=== PATIENT | female | born 1990 | race Caucasian/White ===

== ENCOUNTER 2022-10-17 21:25 | Emergency (ER) | payer SELFPAY ==
--- OUTSIDE RECORDS SUMMARY | 2022-10-17 21:39 | XMS REPORT | Continuity of Care Document ---
:1990 Author Organization [facility] t Address [address] [place] [address] Care Team Providers Name Role Phone JAMAR CASAS Primary Care Physician Unavailable DOUG HAMMER Attending Clinician Unavailable Doug Gamble Attending Clinician PAM COLE Attending Clinician Unavailable Anahi Hoang MD Attending Clinician GC_SWHANBWH_Diggs_R Attending Clinician Unavailable DA CHAPIN Attending Clinician Unavailable JENNY FLETCHER Attending Clinician Unavailable BRIE GALVAN Attending Clinician Unavailable Kaycee Longo Attending Clinician [phone] LEYLA GALVAN Attending Clinician Unavailable Thania Barrera Attending Clinician THANIA BARRERA Attending Clinician Unavailable Sukhwinder Thomas Attending Clinician SUKHWINDER THOMAS Attending Clinician Unavailable ROSA M Attending Clinician Unavailable JERZY BRADFORD Attending Clinician Unavailable JANENE MASSEY Attending Clinician Unavailable HIEU MILLER Attending Clinician Unavailable BRIE KEN Attending Clinician Unavailable ESTHER MIRZA Attending Clinician Unavailable DIRK MARIE Attending Clinician Unavailable KATHRYN ZELAYA Attending Clinician Unavailable PRESLEY PERAZA Attending Clinician Unavailable Lazaro Luevano MD Attending Clinician ANSHU GUZMÁN Attending Clinician Unavailable Gabriella Lakhani MD Attending Clinician CASH MOULTON Attending Clinician Unavailable MARA WOLF Attending Clinician Unavailable Domingo Miller Attending Clinician DOMINGO MILLER Attending Clinician Unavailable JERZY BRADFORD Attending Clinician Unavailable MICHELLE MARINO Attending Clinician Unavailable GÓMEZ WHITE Attending Clinician Unavailable YING GALVAN Attending Clinician Unavailable TATO CONNOLLY Attending Clinician Unavailable ANDREW, ABNER Attending Clinician Unavailable GÓMEZ WHITE Attending Clinician Unavailable ALVIN TANG Attending Clinician Unavailable DIPAK GUZMAN Attending Clinician Unavailable DAVE THOMAS Attending Clinician Unavailable ANDREW, ABNER Attending Clinician Unavailable WAQAR FRANCO Attending Clinician Unavailable NERY SETH Attending Clinician Unavailable DIPAK GUZMAN Attending Clinician Unavailable COURTNEY ENGEL Attending Clinician Unavailable VICTORIA MENDOZA Attending Clinician Unavailable González Flannery Attending Clinician N[place] Mello Attending Clinician [phone] Tommy Del Toro Attending Clinician Sam Mcclendon Attending Clinician DOUG HAMMER Admitting Clinician Unavailable _SWHANBWH_Chloé_R Admitting Clinician Unavailable ROSA M Admitting Clinician Unavailable González Flannery Admitting Clinician Tommy Del Toro Admitting Clinician Payers Payer Name Policy Type Policy Number Effective Date Expiration Date Davie BRADLEY [id number] 2020 2021 [employer] 00:00:00 00:00:00 EXCEPT [facility] [id number] OF [place] [employer] [id number] 2022 OUT OF NETWORK 00:00:00 TP68 [facility] [id number] 2021 PROGRAM 00:00:00 [place] [id number] 2021 [facility] 00:00:00 PROGRAM (MEDICAID) [facility] [id number] 2020 00:00:00 Problems Condition Condition Condition Status Onset Resolution Last Treating Co mments Source Name Details Category Date Date Treatment Clinician Date FACE/RT FACE/RT Diagnosis Active 2022-03-19 Memoria SIDE SIDE 03-18 13:51:00 l NUMBNESS NUMBNESS 00:00: Garrett lynch Active 00 03/18/2022 [facility] FEVER, FEVER, Diagnosis Active 2022-03-13 Me moria BODY PAIN BODY PAIN 03-13 21:46:00 l Active 00:00: Dav 03/13/[address] [place] [address] Hypertensi Hypertensi Problem Active P rivia ve ve 3-29 Medical disorder Disorder 00:00: 00 SENT BY SENT BY Diagnosis Active 2021-03-18 Erik SAINI Active 01-20 15:44:00 l 01/20/2021 00:00: Garrett VILLA [address] INTRACTABL Diagnosis Active 2015-10-17 Memoria E VOMITING INTRACTABL 09-02 16:18:00 l S/P E VOMITING 00:00: Garrett lynch GASTRIC S/P 00 SLEEVE GASTRIC SLEEVE Active 09/02/2015 [facility] VOMITTING VOMITTING Diagnosis Active 2015-09-17 Memoria Active 09-02 18:24:00 l 09/02/2015 00:00: Garrett VILLA [address] ABDOMINAL ABDOMINAL Diagnosis Active 2014-082015-08-26 Memoria PAIN PAIN 10-27 11:29:00 l Active 00:00: Dav 08/26/2015 00 [facility] UNK UNK Diagnosis Active 2014-082015-08-06 Mem oria Active 10-06 12:24:00 l 08/05/2015 00:00: Garrett VILLA [address] [place] [address] E66.01 E66.01 Diagnosis Active 2014-082015-08-16 Wy moria Active 2-07 14:56:00 l 08/05/2015 00:00: Garrett lynch 00 [facility] MORBID MORBID Diagnosis Active 2014-082015-06-24 Wy moria OBESITY OBESITY 0-23 15:17:00 l Active 00:00: [place] 06/21/2015 00 [facility] K21.9; K21.9; Diagnosis Active 2014-082015-06-24 Wy moria GASTRO-ESO GASTRO-ESO 0- 09:25:00 l PHAGEAL PHAGEAL 00:00: Dav REFLUX REFLUX 00 DISEASE DISEASE Active 06/19/2015 [facility] K21.0 K21.0 Diagnosis Active 2015-06-10 Mem oria Active 05-07 06:23:00 l 05/07/2015 00:00: Garrett lynch 00 [facility] Bipolar Bipolar Problem Resolve 2015-09-22 M emoria (qualifier (qualifier d 02:57:40 l value) value) Dav Resolved Problem 09/22/2015 [facility] Obesity Obesity Problem Resolve 2015-09-22 Memoria (disorder) (disorder) d 02:57:40 l Resolved [place] Problem 09/22/2015 [facility] Acid Acid Problem Active 2015-09-22 Memor ia reflux reflux 02:57:40 l (finding) (finding) Herm kailash Active Problem 09/22/2015 [facility] Pain in Pain in Problem Active 2022-03-21 Wy mori lower limb lower limb 21:09:41 l (finding) (finding) Herm kailash Active Problem 03/21/2022 [facility] GASTRO-ESO GASTRO-ES Diagnosis Active 2015-06-10 Memoria PHAGEAL OPHAGEAL 06:23:00 l REFLUX REFLUX Dav DISEASE DISEASE WITH ES WITH ES Active [facility] MORBID MORBID Diagnosis Active 2015-08-16 Wy moria (SEVERE) (SEVERE) 14:56:00 l OBESITY OBESITY Dav DUE TO DUE TO EXCESS CA EXCESS CA Active [facility] VOMITING, VOMITING, Diagnosis Active 2015-10-17 Memoria UNSPECIFIE UNSPECIFIE 16:18:00 l D D Active Dav [facility] History of Past Illness Condition Condition Condition Status Onset Resolution Last Treating Co mments Source Name Details Category Date Date Treatment Clinician Date 2018-nCoV 2018-nCoV Problem 2022-03-212022-03-21 Memoria acute acute 03-19 21:09:41 21:09:41 l respirator respirator 06:21: He rmann y disease y disease 00 03/19/2022 [facility] Paresthesi Paresthes Problem 2022-03-21 2022-03-21 Memoria a of skin ia of skin 03-19 21:09:41 21:09:41 l 03/19/2022 06:21: Garrett n 03/21/2022 00 [facility] Hypokalemi Problem 2022-03-21 2022-03-21 Memoria a Hypokalemi 03-19 21:09:41 21:09:41 l a 06:21: Dav 03/19/2022 00 03/21/2022 [facility] Discharge Problem 2014-082015-08-29 2015-08-29 Memoria Diagnosis: Discharge 10-27 03:22:03 03:22:03 l Abdominal Diagnosis: 06:00: Her blanca pain Abdominal 00 pain 08/26/2015 08/29/2015 [facility] Allergies, Adverse Reactions, Alerts Allergy Allergy Status Severity Reaction(s) Onset Inactive Treating Comm ents Source Name Type Date Date Clinician LATEX DRUG Active Unknown-Cmnt 2021-08 Univ ers INGREDI 10-27 ity of 00:00: [place] [facility] BENZONAT DRUG Active Swelling 2021-08 Univer s ATE INGREDI 10-27 ity of 00:00: [place] 00 [facility] Latex Propensi Active Unknown - 2021-08 Unive rs ty to See comments 10-27 ity of adverse 00:00: [place] reaction 00 Medical s Branch Benzonat Propensi Active Swelling 2021-08 Univ ers ate ty to 10-27 ity of adverse 00:00: [place] reaction 00 Medical s Branch Latex Propensi Active Rash Methodi ty to 01-24 st adverse 00:00: Hospita reaction 00 l s to drug Latex Allergy Active [facility] substanc [facility] Latex Latex Active Memoria oj Candelariasalon Active Memori hesham Demarco Social History Social Habit Start Date Stop Date Quantity Comments Source Exposure to 2022-08-16 2022-08-26 Not sure University of SARS-CoV-2 00:00:00 13:07:00 [place] [facility] (event[facility] Alcohol intake 2022-06-11 2022-06-11 Current [facility] 00:00:00 00:00:00 non-drinker of alcohol (finding) Tobacco use and 2018-05-14 2018-05-14 Smokeless tobacco [facility] exposure 00:00:00 00:00:00 non-user Social History 2015-08-15 2015-08-15 [facility] 18:23:25 18:23:25 Sex Ass[birth year] At [birth year] [facility] 00:00:00 00:00:00 Smoking Status Start Date Stop Date Source Tobacco smoking consumption [facility] Never smoked tobacco [facility] ospital Medications Ordered Filled Start Stop Current Ordering Indication Dosage Frequency Signature Comments Components Source Medication Medication Date Date Medication? Clinician (SIG) Name Name albuterol 2021-08 Yes [id number] 2{puff} Inhale 2 Univers 90 2-28 Puffs ity of mcg/actuati 00:00: every 4 Imer as on inhaler 00 (four) Medical hours as Branch needed for Wheezing or Shortness of Breath. cephalexin 2021-08- No 500mg [id number] Take 1 Methodi (Keflex) 06-17 [id number] capsule s t 500 MG 00:00: 04:59 3D (500 mg Hospita capsule 00 :00 total) by l mouth 3 (three) times a day for 5 days. ondansetron 2021-08- No 4mg Q8H Take 1 Met hodi ODT 06-17 tablet (4 st (ZOFRAN-ODT 00:00: 04:59 mg total) Hospita ) 4 MG 00 :00 by mouth l disintegrat every 8 ing tablet (eight) hours as needed for nausea or vomiting for up to 5 days. potassium No /= 14 Memoria chloride 7-21 Cameroonian, l 05:55: may 00 dissolve each 20 mEq tablet in 4 oz of water. Allow about 2 minutes for the tablets to disintegra te. Stir before giving to prepare slurry and administer . Please exclude patient's with feeding tube less than 14 Cameroonian (Dobhoff, J-tube, etc) and pediatric and patients. potassium No /= 14 Memoria chloride 7-21 [place], l 05:55: may [place] 00 dissolve each 20 mEq tablet in 4 oz of water. Allow about 2 minutes for the tablets to disintegra te. Stir before giving to prepare slurry and administer . Please exclude patient's with feeding tube less than 14 [place]onian (Dobhoff, J-tube, etc) and pediatric and patients. Tessalon Yes 200 mg = 1 Mem oria 200 mg oral 7-16 cap, PO, l capsule 03:28: TID, X 7 Garrett n 00 day, # 21 cap, 0 Refill(s) Tessalon 0 Yes 200 mg = 1 Mem oria 200 mg oral 7-16 cap, PO, l capsule 03:28: TID, X 7 Garrett n 00 day, # 21 cap, 0 Refill(s) ibuprofen Yes 600 mg = 1 Me moria 600 mg oral 7-16 tab, PO, l tablet 03:27: Q6H, PRN Dav 00 Pain or Fever, Take with food, X 10 day, # 40 tab, 0 Refill(s) ibuprofen Yes 600 mg = 1 Me moria 600 mg oral 7-16 tab, PO, l tablet 03:27: Q6H, PRN Dav 00 Pain or Fever, Take with food, X 10 day, # 40 tab, 0 Refill(s) Tylenol No Notes: Max Henok vane 7-16 acetaminop l 00:44: hen 4000 Dav 00 mg/day (4 gm/day). (Same as: Tylenol Extra Strength) Tylenol No Notes: Max Henok vane 7-16 acetaminop l 00:44: hen 4000 Dav 00 mg/day (4 gm/day). (Same as: Tylenol Extra Strength) furosemide Yes 40mg Q.5D Take 40 mg M ethodi (LASIX) 40 5-[address] mg tablet 10:40: (two) Hospita 34 times a l day. insulin Yes Q.[id number] Inject Me thodi ASPART -[id number] (NovoLOG) 10:40: 3D skin 3 Hospit a 100 unit/mL 33 (three) l injection times a day before meals. metFORMIN Yes 850mg Q.5D Take 850 Met hodi (GLUCOPHAGE 5-[address] ) 850 mg 10:40: mouth 2 Hospit a tablet 33 (two) l times a day with meals. insulin Yes QD Inject Methodi GLARGINE 5-[address] (LANTUS) 10:40: skin Hospita 100 unit/mL 33 nightly. l injection (vial) buPROPion 2019-0 Yes 300mg QD Take 300 Met hodi XL 5-[address] (WELLBUTRIN 19:57: mouth Hospi ta XL) 300 MG 02 every l 24 hr morning. tablet busPIRone 2019-0 Yes 10mg Q.5D Take 10 mg Me thodi (BUSPAR) 10 5-[address] MG tablet 19:57: (two) Hospita 02 times a l day. amitriptyli 2019-0 Yes 100mg QD Take 100 M ethodi ne (ELAVIL) 5-[address] 100 MG 19:57: mouth Hospita tablet 02 nightly. l ibuprofen 2019-0 Yes 600mg Q8H Take 1 Metho di (ADVIL) 600 5-[address] MG tablet 00:00: (600 mg Hospi ta 00 total) by l mouth every 8 (eight) hours as needed (for pain and swelling) for up to 20 doses. Reglan No Notes: Memoria 1-22 (Same as: l 00:00: Reglan) Reglan No Notes: Memoria 1-22 (Same as: l 00:00: Reglan) Sodium No 1,000 mL, Memori a Chloride 09-19 Rate: 25 l 0.154 18:06: ml/hr, [place] MEQ/ML 00 Infuse Injectable over: 40 Solution hr, Route: IV, Dosing Weight 160.909 kg, Total Volume: 1,000, Start date: 09/19/15 12:06:00, Duration: 30 day, Stop date: 10/19/15 12:05:00 Sodium 2015- No 1,000 mL, Memori a Chloride 09-19 Rate: 25 l 0.154 18:06: ml/hr, Dav MEQ/ML 00 Infuse Injectable over: 40 Solution hr, Route: IV, Dosing Weight 160.909 kg, Total Volume: 1,000, Start date: 09/19/15 12:06:00, Duration: 30 day, Stop date: 10/19/15 12:05:00 thiamine 2016-0 Yes 100 mg = 1 Mem oria 100 mg oral 1-21 tab, PO, l tablet 17:08: Daily, X 14 day, # 14 tab, 0 Refill(s) pantoprazol 2016-0 Yes 40 mg = 1 M emoria e 40 mg 1-21 tab, PO, l oral 17:08: Before Dav enteric 00 Dinner, # coated 30 tab, 0 tablet Refill(s) Promethazin 2016-0 Yes 12.5 mg = M emoria e 1-21 1 tab, PO, l Hydrochlori 17:08: Q6H, PRN He rmann de 12.5 MG 00 Nausea & Oral Tablet Vomiting, [Phenergan] X 7 day, # 28 tab, 0 Refill(s) Folic Acid 2016-0 Yes 1 mg = 1 Mem oria 1 MG Oral 1-21 tab, PO, l Tablet 17:08: Daily, # [place] 00 30 tab, 0 Refill(s) thiamine 2016-0 Yes 100 mg = 1 Mem oria 100 mg oral 1-21 tab, PO, l tablet 17:08: Daily, X 14 day, # 14 tab, 0 Refill(s) pantoprazol 2016-0 Yes 40 mg = 1 M emoria e 40 mg 1-21 tab, PO, l oral 17:08: Before Dav enteric 00 Dinner, # coated 30 tab, 0 tablet Refill(s) Promethazin 2016-0 Yes 12.5 mg = M emoria e 1-21 1 tab, PO, l Hydrochlori 17:08: Q6H, PRN He rmann de 12.5 MG 00 Nausea & Oral Tablet Vomiting, [Phenergan] X 7 day, # 28 tab, 0 Refill(s) Folic Acid 2016-0 Yes 1 mg = 1 Mem oria 1 MG Oral 1-21 tab, PO, l Tablet 17:08: Daily, # [place] 00 30 tab, 0 Refill(s) Melatonin 2016-0 No 1 mg, Memoria -21 Route: PO, l 03:00: Drug form: [place] 00 TAB, Bedtime, Dosing Weight 160.909, kg, Start date: 09/18/15 21:00:00, Duration: 30 day, Stop date: 10/17/15 21:00:00 Lamictal 2015-0 No Notes: Memoria 1-21 (Same l 03:00: as:LaMICta [place] 00 l) Strattera 0 No 80 mg, Memori a 1- Route: PO, l 03:00: Drug form: Dav 00 CAP, Bedtime, Dosing Weight 160.909, kg, Start date: 09/18/15 21:00:00, Duration: 30 day, Stop date: 10/17/15 21:00:00 Melatonin No 1 mg, Memoria 09-19 Route: PO, l 03:00: Drug form: Dav 00 TAB, Bedtime, Dosing Weight 160.909, kg, Start date: 09/18/15 21:00:00, Duration: 30 day, Stop date: 10/17/15 21:00:00 Lamictal 2015-0 No Notes: Memoria - (Same l 03:00: as:LaMICta [place] 00 l) Strattera 0 No 80 mg, Memori a 1- Route: PO, l 03:00: Drug form: Dav 00 CAP, Bedtime, Dosing Weight 160.909, kg, Start date: 09/18/15 21:00:00, Duration: 30 day, Stop date: 10/17/15 21:00:00 Protonix 2015-0 No Notes: Memoria 1-20 Tablet l 22:30: should not [place] 00 be chewed or crushed. (Same as: Protonix) Protonix 2015- No Notes: Memoria 1-20 Tablet l 22:30: should not Dav 00 be chewed or crushed. (Same as: Protonix) Thiamine No Notes: Memoria 1-20 (Same As: l 20:00: Vitamin [place] 00 B1) Thiamine No Notes: Memoria 1-20 (Same As: l 20:00: Vitamin [place] 00 B1) Folic Acid No Notes: Memor ia 1-20 (Same as: l 19:00: Folvite) Folic Acid No Notes: Memor ia 1-20 (Same as: l 19:00: Folvite) normal No 1,000 mL, Memori a saline 0.9% 1-20 Rate: 125 l IV 1,000 mL 18:38: ml/hr, Herm kailash 00 Infuse over: 8 hr, Route: IV, Dosing Weight 160.909 kg, Total Volume: 1,000, Start date: 09/18/15 12:38:00, Duration: 30 day, Stop date: 10/18/15 12:37:00 normal No 1,000 mL, Memori a saline 0.9% 1-20 Rate: 125 l IV 1,000 mL 18:38: ml/hr, Herm kailash Infuse over: 8 hr, Route: IV, Dosing Weight 160.909 kg, Total Volume: 1,000, Start date: 09/18/15 12:38:00, Duration: 30 day, Stop date: 10/18/15 12:37:00 Prinivil No Notes: Memoria 1-20 (Same as: l 15:00: Prinivil, Zestril) Lovenox No Notes: Memoria 1-20 (Same as: l 15:00: Lovenox) hydrochloro No Notes: Henok vane thiazide 25 1-20 (Same as: l mg oral 15:00: Hydrodiuri Herm kailash tablet 00 l) With food. Prilosec No 40 mg, Memoria 1-20 Route: PO, l 15:00: Drug form: DRC, Daily, Dosing Weight 160.909, kg, Start date: 09/18/15 9:00:00, Duration: 30 day, Stop date: 10/17/15 9:00:00 multivitami No 2 tab, Henok vane n 1-20 Route: l 15:00: CHEW, Dosing Weight 160.909, kg, BID, Start date: 09/18/15 9:00:00, Duration: 30 day, Stop date: 10/17/15 17:00:00 Hydrochloro No 1 tab, Henok vane thiazide 25 1-20 Route: PO, l MG / 15:00: Drug Form: [place] Lisinopril 00 TAB, 20 MG Oral Dosing Tablet Weight 160.909, kg, Daily, Start date: 09/18/15 9:00:00, Duration: 30 day, Stop date: 10/17/15 9:00:00 Prinivil No Notes: Memoria 1-20 (Same as: l 15:00: Prinivil, Dav Zestril) Lovenox No Notes: Memoria 1-20 (Same as: l 15:00: Lovenox) [place] 00 hydrochloro No Notes: Henok vane thiazide 25 1-20 (Same as: l mg oral 15:00: Hydrodiuri Herm kailash tablet 00 l) With food. Prilosec No 40 mg, Memoria 1-20 Route: PO, l 15:00: Drug form: Dav 00 DRC, Daily, Dosing Weight 160.909, kg, Start date: 09/18/15 9:00:00, Duration: 30 day, Stop date: 10/17/15 9:00:00 multivitami No 2 tab, Henok vane n 1-20 Route: l 15:00: CHEW, [place] 00 Dosing Weight 160.909, kg, BID, Start date: 09/18/15 9:00:00, Duration: 30 day, Stop date: 10/17/15 17:00:00 Hydrochloro No 1 tab, Henok vane thiazide 25 1-20 Route: PO, l MG / 15:00: Drug Form: Dav Lisinopril 00 TAB, 20 MG Oral Dosing Tablet Weight 160.909, kg, Daily, Start date: 09/18/15 9:00:00, Duration: 30 day, Stop date: 10/17/15 9:00:00 *Remind pt No *Remind pt Corey victoria to bring 1-20 to bring l home med 06:00: home med Brigida nn melatonin 1 00 melatonin mg and 1 mg and multivitami multivitam n in, Reminder, Drug form: MISC, Route: MISC, QSHIFT, 09/18/15 0:00:00, Duration: 30 day, Stop date: 10/17/15 16:00:00 *Remind pt 2015- No *Remind pt M emoria to bring 1-20 to bring l home med 06:00: home med Brigida nn melatonin 1 00 melatonin mg and 1 mg and multivitami multivitam n in, Reminder, Drug form: MISC, Route: MISC, QSHIFT, 09/18/15 0:00:00, Duration: 30 day, Stop date: 10/17/15 16:00:00 Bupropion No Notes: Memori a 1-20 (Same as: l 05:00: Wellbutrin [place] 00 XL) "Do Not Crush" Bupropion No Notes: Memori a 1-20 (Same as: l 05:00: Wellbutrin Dav 00 XL) "Do Not Crush" Reglan No Notes: Memoria 1-20 (Same as: l 04:26: Reglan) Dav Acetaminoph No Notes: Do M emoria en 1-20 not exceed l 04:26: 4 gm/day. [place] 00 (Same as: Tylenol) Ondansetron No Notes: Henok vane 1-20 (Same as: l 04:26: Zofran) [place] 00 MEDICATION WASTE Product Size: 4 mg Product Wasted: ___ mg Morphine No Notes: Memoria 1-20 (Same l 04:26: as:MORPhin [place] 00 e Sulfate) Phenergan No Notes: Do Mem oria 1-20 not give l 04:26: IV push. Dav 00 (Same as: Phenergan) Reglan No Notes: Memoria 1-20 (Same as: l 04:26: Reglan) [place] 00 Acetaminoph No Notes: Do M emoria en 1-20 not exceed l 04:26: 4 gm/day. [place] 00 (Same as: Tylenol) Ondansetron No Notes: Henok vane 1-20 (Same as: l 04:26: Zofran) [place] 00 MEDICATION WASTE Product Size: 4 mg Product Wasted: ___ mg Morphine No Notes: Memoria 1-20 (Same l 04:26: as:MORPhin [place] 00 e Sulfate) Phenergan No Notes: Do Mem oria 1-20 not give l 04:26: IV push. Dav 00 (Same as: Phenergan) Zofran ODT No Notes: Memor ia 1-20 (Same as: l 04:25: Zofran [place] 00 ODT) Zofran ODT No Notes: Memor ia 1-20 (Same as: l 04:25: Zofran Dav 00 ODT) Metoclopram No Notes: Henok vane john 10 MG 1-20 (Same as: l Oral Tablet 04:24: Reglan) Her blanca [Reglan] 00 Take 30 min before meals Metoclopram No Notes: Henok vane john 10 MG 1-20 (Same as: l Oral Tablet 04:24: Reglan) Her blanca [Reglan] 00 Take 30 min before meals 200 ACTUAT No Notes: Memor ia Albuterol 1-20 Same as: l 0.09 04:23: Ventolin Dav MG/ACTUAT 00 HFA Metered Dose Inhaler [Proventil] 200 ACTUAT No Notes: Memor ia Albuterol 1-20 Same as: l 0.09 04:23: Ventolin [place] MG/ACTUAT 00 HFA Metered Dose Inhaler [Proventil] Melatonin No Melatoni Memoria 1mg -Pt's 1-20 n 1mg l own 04:19: -Pt's own Dav medication* 00 medication * , 1 mg, 1 tab, Drug form: MISC, Route: PO, ONCE, 09/17/15 22:19:00, Stop date: 09/17/15 22:19:00 Melatonin No Melatoni Memoria 1mg -Pt's 1-20 n 1mg l own 04:19: -Pt's own Dav medication* 00 medication * , 1 mg, 1 tab, Drug form: MISC, Route: PO, ONCE, 09/17/15 22:19:00, Stop date: 09/17/15 22:19:00 Strattera 2015-0 No 80 mg, Memori a 1-20 Route: PO, l 04:12: ONCE, Dosing Weight 160.909, kg, Start date: 09/17/15 22:12:00, Stop date: 09/17/15 22:12:00 Strattera 2015-0 No 80 mg, Memori a 1-20 Route: PO, l 04:12: ONCE, Dosing Weight 160.909, kg, Start date: 09/17/15 22:12:00, Stop date: 09/17/15 22:12:00 Melatonin 2016-0 No 1 mg, Memoria 1-20 Route: PO, l 04:11: ONCE, Dosing Weight 160.909, kg, Start date: 09/17/15 22:11:00, Stop date: 09/17/15 22:11:00 lamotrigine No Notes: Henok vnae 150 MG Oral 1-20 (Same l Tablet 04:11: as:LaMICta Brigida nn l) Melatonin No 1 mg, Memoria 1-20 Route: PO, l 04:11: ONCE, Dosing Weight 160.909, kg, Start date: 09/17/15 22:11:00, Stop date: 09/17/15 22:11:00 lamotrigine 2015-0 No Notes: Henok vane 150 MG Oral 1-20 (Same l Tablet 04:11: as:LaMICta Brigida nn 00 l) 200 ACTUAT Yes 2 puff, Henok vane Albuterol 1-20 INHALATION l 0.09 04:10: , QID, PRN Dav MG/ACTUAT 00 as needed Metered for Dose wheezing, Inhaler 0 [Proventil] Refill(s) 200 ACTUAT Yes 2 puff, Henok vane Albuterol 1-20 INHALATION l 0.09 04:10: , QID, PRN [place] MG/ACTUAT 00 as needed Metered for Dose wheezing, Inhaler 0 [Proventil] Refill(s) multivitami Yes 2 tab, Henok vane n 1-20 CHEW, BID, l 04:08: 0 Dav 00 Refill(s) multivitami 0 Yes 2 tab, Henok vane n 1-20 CHEW, BID, l 04:08: 0 [place] 00 Refill(s) Ondansetron Yes 8 mg = 1 Me moria 8 MG 1-20 tab, PO, l Disintegrat 04:07: Q8H, PRN He rmann ing Tablet 00 as needed [Zofran] for nausea/vom iting, 0 Refill(s) Metoclopram Yes 10 mg = 1 M emoria john 10 MG 1-20 tab, PO, l Oral Tablet 04:07: Q6H, PRN He rmann [Reglan] 00 Nausea & Vomiting, 0 Refill(s) Ondansetron Yes 8 mg = 1 Me moria 8 MG 1-20 tab, PO, l Disintegrat 04:07: Q8H, PRN He rmann ing Tablet 00 as needed [Zofran] for nausea/vom iting, 0 Refill(s) Metoclopram Yes 10 mg = 1 M emoria john 10 MG 1-20 tab, PO, l Oral Tablet 04:07: Q6H, PRN He rmann [Reglan] 00 Nausea & Vomiting, 0 Refill(s) buPROPion Yes 300 mg = 1 Me moria 300 mg/24 1-20 tab, PO, l hours oral 04:05: Q24H, 0 Herm kailash extended 00 Refill(s) release tablet buPROPion Yes 300 mg = 1 Me moria 300 mg/24 1-20 tab, PO, l hours oral 04:05: Q24H, 0 Herm kailash extended 00 Refill(s) release tablet Reglan No Notes: Memoria 1-20 (Same as: l 03:49: Reglan) Dav 00 Reglan No Notes: Memoria 1-20 (Same as: l 03:49: Reglan) Dav 00 Ondansetron No Notes: Henok vane 4 MG 1-20 (Same as: l Disintegrat 00:07: Zofran Herm kailash ing Tablet 00 ODT) Saline No Notes: Memoria Flush 0.9% 1-20 (Same as: l 00:07: BD Dav 00 Posiflush) Ondansetron No Notes: Henok vane 4 MG 1-20 (Same as: l Disintegrat 00:07: Zofran Herm kailash ing Tablet 00 ODT) Saline No Notes: Memoria Flush 0.9% 1-20 (Same as: l 00:07: BD [place] 00 Posiflush) Ondansetron 2014-08 No 4 mg = 1 Me moria 4 MG 2-28 tab, PO, l Disintegrat 22:06: TID, Garrett n ing Tablet 00 Dissolve [Zofran] tab under tongue, X 1 day, # 12 tab, 0 Refill(s) Acetaminoph 2014-08 Yes 11.25 mL, M emoria en 20 MG/ML 2-28 PO, Q6H, # l / 22:06: 60 mL, 0 [place] Hydrocodone 00 Refill(s) Bitartrate 0.667 MG/ML Oral Solution Ondansetron 2014-08 No 4 mg = 1 Me moria 4 MG 2-28 tab, PO, l Disintegrat 22:06: TID, Garrett n ing Tablet 00 Dissolve [Zofran] tab under tongue, X 1 day, # 12 tab, 0 Refill(s) Acetaminoph 2014-08 Yes 11.25 mL, M emoria en 20 MG/ML 2-28 PO, Q6H, # l / 22:06: 60 mL, 0 [place] Hydrocodone 00 Refill(s) Bitartrate 0.667 MG/ML Oral Solution ketOROLAC 2014-08 No 15 mg, Memori a 15 mg/mL 2-28 Route: l injectable 20:44: IVP, Drug He r[place] solution 00 form: INJ, ONCE, Dosing Weight 162.273, kg, Priority: STAT, Start date: 08/26/15 14:44:00, Stop date: 08/26/15 14:44:00 ketOROLAC 2014-08 No 15 mg, Memori a 15 mg/mL 2-28 Route: l injectable 20:44: IVP, Drug He rmann solution 00 form: INJ, ONCE, Dosing Weight 162.273, kg, Priority: STAT, Start date: 08/26/15 14:44:00, Stop date: 08/26/15 14:44:00 Morphine 2014-08 No 6 mg, Memoria 2-28 Route: l 18:38: IVP, Drug [place] 00 form: INJ, ONCE, Dosing Weight 162.273, kg, Priority: STAT, Start date: 08/26/15 12:38:00, Stop date: 08/26/15 12:38:00 Morphine 2014- No 6 mg, Memoria 2-28 Route: l 18:38: IVP, Drug Dav 00 form: INJ, ONCE, Dosing Weight 162.273, kg, Priority: STAT, Start date: 08/26/15 12:38:00, Stop date: 08/26/15 12:38:00 Zofran 2014-08 No 4 mg, Memoria 2-28 Route: l 18:37: IVP, Drug Dav 00 form: INJ, ONCE, Dosing Weight 162.273, kg, Priority: STAT, Start date: 08/26/15 12:37:00, Stop date: 08/26/15 12:37:00 Zofran 2014-08 No 4 mg, Memoria 2-28 Route: l 18:37: IVP, Drug Dav 00 form: INJ, ONCE, Dosing Weight 162.273, kg, Priority: STAT, Start date: 08/26/15 12:37:00, Stop date: 08/26/15 12:37:00 Sodium 2014- No 1,000 mL, Memori a Chloride 2-28 1,000 l 0.154 16:47: ml/hr, [place] MEQ/ML 00 Infuse Injectable Over: 1 Solution Hour, Route: IV, ONCE, Priority: STAT, Dosing Weight 162.273 kg, Start date: 08/26/15 10:47:00, Duration: 1 doses or times, Stop date: 08/26/15 10:47:00 Sodium 2014- No 1,000 mL, Memori a Chloride 2-28 1,000 l 0.154 16:47: ml/hr, [place] MEQ/ML 00 Infuse Injectable Over: 1 Solution Hour, Route: IV, ONCE, Priority: STAT, Dosing Weight 162.273 kg, Start date: 08/26/15 10:47:00, Duration: 1 doses or times, Stop date: 08/26/15 10:47:00 Reglan 2014-08 No Notes: Memoria 2-19 (Same as: l 06:00: Reglan) [place] 00 Take 30 min before meals Reglan 2014-08 No Notes: [facility]oria 2-19 (Same as: l 06:00: Reglan) [place] 00 Take 30 min before meals Pepcid 2014-08 No Notes: Memoria 2-19 (Same as: l 03:00: Pepcid) Dav 00 Pepcid 2014-08 No Notes: Memoria 2-19 (Same as: l 03:00: Pepcid) Dav Acetaminoph 2014-08 No Notes: Do M emoria en 20 MG/ML 2-18 not exceed l / 17:48: 4gm/day of [place] Hydrocodone 00 acetaminop Bitartrate hen. (Same 0.667 MG/ML as: Oral Zolvit) Solution Acetaminoph 2014-08 No Notes: Do M emoria en 20 MG/ML 2-18 not exceed l / 17:48: 4gm/day of Dav Hydrocodone 00 acetaminop Bitartrate hen. (Same 0.667 MG/ML as: Oral Zolvit) Solution Wellbutrin 2014-08 No Notes: Memor ia 2-18 (Same As: l 15:00: Wellbutrin Dav 00 ) Prinivil 2014-08 No Notes: [facility] 2-18 (Same as: l 15:00: Prinivil, [place] 00 Zestril) hydrochloro 2014-08 No Notes: Henok vane thiazide 25 2-18 (Same as: l mg oral 15:00: Hydrodiuri Herm kailash tablet 00 l) With food. pneumococca 2014-08 No Notes: Henok vane l capsular 2-18 (Same as: l polysacchar 15:00: Pneumovax H ermann john type 1 00 23) vaccine / Refrigerat pneumococca e l capsular polysacchar john type 10A vaccine / pneumococca l capsular polysacchar john type 11A vaccine / pneumococca l capsular polysacchar john type 12F vaccine / pneumococca l capsular polysacchar Hydrochloro 2014-08 No 1 tab, Henok vane thiazide 25 2-18 Route: PO, l MG / 15:00: Drug Form: Dav Lisinopril 00 TAB, 20 MG Oral Dosing Tablet Weight 168.636, kg, Daily, Start date: 08/16/15 9:00:00, Duration: 30 day, Stop date: 09/14/15 9:00:00 Wellbutrin 2014-08 No Notes: Memor ia 2-18 (Same As: l 15:00: Wellbutrin Dav 00 ) Prinivil 2014-08 No Notes: [facility]oria 2-18 (Same as: l 15:00: Prinivil, [place] 00 Zestril) hydrochloro 2014-08 No Notes: Henok vane thiazide 25 2-18 (Same as: l mg oral 15:00: Hydrodiuri Herm kailash tablet 00 l) With food. pneumococca 2014-08 No Notes: Henok vane l capsular 2-18 (Same as: l polysacchar 15:00: Pneumovax H ermann john type 1 00 23) vaccine / Refrigerat pneumococca e l capsular polysacchar john type 10A vaccine / pneumococca l capsular polysacchar john type 11A vaccine / pneumococca l capsular polysacchar john type 12F vaccine / pneumococca l capsular polysacchar Hydrochloro 2014-08 No 1 tab, Henok vane thiazide 25 2-18 Route: PO, l MG / 15:00: Drug Form: Dav Lisinopril 00 TAB, 20 MG Oral Dosing Tablet Weight 168.636, kg, Daily, Start date: 08/16/15 9:00:00, Duration: 30 day, Stop date: 09/14/15 9:00:00 Reminder 2014-08 No Reminde Erik to bring 2-18 r to bring l pt's own 06:00: pt's own Brigida nn med 00 med strattera strattera to pharmacy to pharmacy, 1, Drug form: MISC, Route: MISCKEEGAN, 08/16/15 0:00:00, Duration: 30 day, Stop date: 09/14/15 16:00:00 Reminder 2014-08 No Reminde Memoria to bring 2-18 r to bring l pt's own 06:00: pt's own Brigida nn med 00 med strattera strattera to pharmacy to pharmacy, 1, Drug form: MISC, Route: MISC, QSHIFT, 08/16/15 0:00:00, Duration: 30 day, Stop date: 09/14/15 16:00:00 Enoxaparin 2014-08 No Notes: Memor ia 2-18 (Same as: l 05:00: Lovenox) [place] 00 Enoxaparin 2014-08 No Notes: Memor ia 2-18 (Same as: l 05:00: Lovenox) [place] 00 Famotidine 2014-08 No Notes: Memor ia 2-18 (Same as: l 03:00: Pepcid) [place] 00 Can be dilute in 5-10cc NS IVP: Slow IV push over at least 2 minutes. Lamictal 2014-08 No Notes: Memoria 2-18 (Same l 03:00: as:LaMICta Dav 00 l) Strattera 2014-08 No 80 mg, Memori a 2-18 Route: PO, l 03:00: Drug form: [place] 00 CAP, Bedtime, Dosing Weight 168.636, kg, Start date: 08/15/15 21:00:00, Duration: 30 day, Stop date: 09/13/15 21:00:00 Lamictal 2014-08 No Notes: Memoria 2-18 (Same l 03:00: as:LaMICta Dav 00 l) Strattera 2014-08 No 80 mg, Memori a 2-18 Route: PO, l 03:00: Drug form: [place] 00 CAP, Bedtime, Dosing Weight 168.636, kg, Start date: 08/15/15 21:00:00, Duration: 30 day, Stop date: 09/13/15 21:00:00 Famotidine 2014-08 No Notes: Memor ia 2-18 (Same as: l 03:00: Pepcid) [place] 00 Can be dilute in 5-10cc NS IVP: Slow IV push over at least 2 minutes. Metoclopram 2014-08 No Notes: Henok vane john 2-17 (Same as: l 22:00: Reglan) [place] Metoclopram 2014-08 No Notes: Henok vane john 2-17 (Same as: l 22:00: Reglan) [place] 00 Sucralfate 2014-08 No Notes: Memor ia 100 MG/ML 2-17 Enteral l Oral 19:00: feeds may [place] Suspension 00 interfere [Carafate] with the absorption of this medication . Shake well. Take 1 hr before or 2 hrs after antacids, dairy pdt, minerals & meals. (Same As: Carafate) Sucralfate 2014-08 No Notes: Memor ia 100 MG/ML 2-17 Enteral l Oral 19:00: feeds may Dav 00 interfere [Carafate] with the absorption of this medication . Shake well. Take 1 hr before or 2 hrs after antacids, dairy pdt, minerals & meals. (Same As: Carafate) Ondansetron 2014-08 No Notes: Henok vane 2-17 (Same as: l 18:00: Zofran) MEDICATION WASTE Product Size: 4 mg Product Wasted: ___ mg Ondansetron 2014-08 No Notes: Henok vane 2-17 (Same as: l 18:00: Zofran) MEDICATION WASTE Product Size: 4 mg Product Wasted: ___ mg Hydromorpho 2014-08 No 0.5 mg, Mem oria ne 2-17 0.5 mL, l 16:34: Route: IV, Drug form: INJ, Q3H, Dosing Weight 175.909, kg, PRN Pain Score 7-10, Start date: 08/15/15 10:34:00, Duration: 30 day, Stop date: 09/14/15 10:33:00 LR IV 1,000 2014-08 No 1,000 mL, M emoria mL 2-17 Rate: 125 l 16:34: ml/hr, Infuse over: 8 hr, Route: IV, Dosing Weight 168.864 kg, Total Volume: 1,000, Start date: 08/15/15 10:34:00, Duration: 30 day, Stop date: 09/14/15 10:33:00 Promethazin 2014-08 No Notes: Henok vane e 2-17 (Same as: l 16:34: Phenergan) Acetaminoph 2014-08 No Notes: Do M emoria en 2-17 not exceed l 16:34: 4 gm/day. (Same as: Tylenol) Metoprolol 2014-08 No Notes: Memor ia 2-17 (Same as: l 16:34: Lopressor) Dav 00 Push over 2 minutes Calcium 2014-08 No 1,000 mL, Memor ia Chloride 2-17 Rate: 125 l 0.0014 16:34: ml/hr, Dav MEQ/ML / 00 Infuse Potassium over: 8 Chloride hr, Route: 0.004 IV, Dosing MEQ/ML / Weight Sodium 168.864 Chloride kg, Total 0.103 Volume: MEQ/ML / 1,000, Sodium Start Lactate date: 0.028 08/15/15 MEQ/ML 10:34:00, Injectable Duration: Solution 30 day, Stop date: 09/14/15 10:33:00 Hydromorpho 2014-08 No 0.5 mg, Mem oria ne 2-17 0.5 mL, l 16:34: Route: IV, [place] 00 Drug form: INJ, Q3H, Dosing Weight 175.909, kg, PRN Pain Score 7-10, Start date: 08/15/15 10:34:00, Duration: 30 day, Stop date: 09/14/15 10:33:00 LR IV 1,000 2014-08 No 1,000 mL, M emoria mL 2-17 Rate: 125 l 16:34: ml/hr, Infuse over: 8 hr, Route: IV, Dosing Weight 168.864 kg, Total Volume: 1,000, Start date: 08/15/15 10:34:00, Duration: 30 day, Stop date: 09/14/15 10:33:00 Promethazin 2014-08 No Notes: Henok vane e 2-17 (Same as: l 16:34: Phenergan) Acetaminoph 2014-08 No Notes: Do M emoria en 2-17 not exceed l 16:34: 4 gm/day. [place] 00 (Same as: Tylenol) Metoprolol 2014-08 No Notes: Memor ia 2-17 (Same as: l 16:34: Lopressor) 00 Push over 2 minutes Calcium 2014-08 No 1,000 mL, Memor ia Chloride 2-17 Rate: 125 l 0.0014 16:34: ml/hr, Dav MEQ/ML / 00 Infuse Potassium over: 8 Chloride hr, Route: 0.004 IV, Dosing MEQ/ML / Weight Sodium 168.864 Chloride kg, Total 0.103 Volume: MEQ/ML / 1,000, Sodium Start Lactate date: 0.028 08/15/15 MEQ/ML 10:34:00, Injectable Duration: Solution 30 day, Stop date: 09/14/15 10:33:00 Naloxone 2014-08 No 0.04 mg, Memor ia 2-17 Route: l 16:23: IVP, [place] 00 Q2MIN, Dosing Weight 168.864, kg, PRN Narcotic Reversal, Start date: 08/15/15 10:23:00, Duration: 8 doses or times, Stop date: Limited # of times Ondansetron 2014-08 No 4 mg, Memor ia 2-17 Route: l 16:23: IVP, ONCE, Dav 00 Dosing Weight 168.864, kg, PRN Nausea & Vomiting, Start date: 08/15/15 10:23:00 Promethazin 2014-08 No 6.25 mg, Me moria e 2-17 Route: l 16:23: IVPB, [place] 00 ONCE, Dosing Weight 168.864, kg, PRN Nausea & Vomiting, Start date: 08/15/15 10:23:00 Flumazenil 2014-08 No 0.2 mg, Henok vane 2-17 Route: l 16:23: IVP, PRN, [place] 00 Dosing Weight 168.864, kg, PRN Benzodiaze pine Reversal, Initial dose, Start date: 08/15/15 10:23:00, Duration: 30 day, Stop date: 09/14/15 10:22:00 Fentanyl 2014-08 No 25 Memoria 2-17 microgram, l 16:23: Route: [place] 00 IVP, Q5Min, Dosing Weight 168.864, kg, PRN Pain Score 4-6, Start date: 08/15/15 10:23:00, Duration: 4 doses or times, Stop date: Limited # of times Hydromorpho 2014-08 No 0.5 mg, Mem oria ne 2-17 Route: l 16:23: IVP, [place] 00 Q5Min, Dosing Weight 168.864, kg, PRN Pain Score 7-10, Start date: 08/15/15 10:23:00, Duration: 4 doses or times, Stop date: Limited # of times Naloxone 2014-08 No 0.04 mg, Memor ia 2-17 Route: l 16:23: IVP, Dav 00 Q2MIN, Dosing Weight 168.864, kg, PRN Narcotic Reversal, Start date: 08/15/15 10:23:00, Duration: 8 doses or times, Stop date: Limited # of times Ondansetron 2014-08 No 4 mg, Memor ia 2-17 Route: l 16:23: IVP, ONCE, Dav 00 Dosing Weight 168.864, kg, PRN Nausea & Vomiting, Start date: 08/15/15 10:23:00 Promethazin 2014-08 No 6.25 mg, Me moria e 2-17 Route: l 16:23: IVPB, Dav 00 ONCE, Dosing Weight 168.864, kg, PRN Nausea & Vomiting, Start date: 08/15/15 10:23:00 Flumazenil 2014-08 No 0.2 mg, Henok vane 2-17 Route: l 16:23: IVP, PRN, Dav 00 Dosing Weight 168.864, kg, PRN Benzodiaze pine Reversal, Initial dose, Start date: 08/15/15 10:23:00, Duration: 30 day, Stop date: 09/14/15 10:22:00 Fentanyl 2014-08 No 25 Memoria 2-17 microgram, l 16:23: Route: Dav 00 IVP, Q5Min, Dosing Weight 168.864, kg, PRN Pain Score 4-6, Start date: 08/15/15 10:23:00, Duration: 4 doses or times, Stop date: Limited # of times Hydromorpho 2014-08 No 0.5 mg, Mem oria ne 2-17 Route: l 16:23: IVP, Dav 00 Q5Min, Dosing Weight 168.864, kg, PRN Pain Score 7-10, Start date: 08/15/15 10:23:00, Duration: 4 doses or times, Stop date: Limited # of times Calcium 2014-08 No 1,000 mL, Memor ia Chloride 2-17 Rate: 25 l 0.0014 13:59: ml/hr, Dav MEQ/ML / 00 Infuse Potassium over: 40 Chloride hr, Route: 0.004 IV, Dosing MEQ/ML / Weight 170 Sodium kg, Total Chloride Volume: 0.103 1,000, MEQ/ML / Start Sodium date: Lactate 08/15/15 0.028 7:59:00, MEQ/ML Duration: Injectable 30 day, Solution Stop date: 09/14/15 7:58:00 Calcium 2014-08 No 1,000 mL, Memor ia Chloride 2-17 Rate: 25 l 0.0014 13:59: ml/hr, [place] MEQ/ML / 00 Infuse Potassium over: 40 Chloride hr, Route: 0.004 IV, Dosing MEQ/ML / Weight 170 Sodium kg, Total Chloride Volume: 0.103 1,000, MEQ/ML / Start Sodium date: Lactate 08/15/15 0.028 7:59:00, MEQ/ML Duration: Injectable 30 day, Solution Stop date: 09/14/15 7:58:00 72 HR 2014-08 No 1 patch, Memoria Scopolamine 2-17 Route: l 0.0139 12:47: TOP, Drug Garrett n MG/HR 00 Form: Transdermal ERFILM, Patch Dosing Weight 175.909, kg, ONCE, Start date: 08/15/15 6:47:00, Stop date: 08/15/15 6:47:00 72 HR 2014-08 No 1 patch, Memoria Scopolamine 2-17 Route: l 0.0139 12:47: TOP, Drug Garrett n MG/HR 00 Form: Transdermal ERFILM, Patch Dosing Weight 175.909, kg, ONCE, Start date: 08/15/15 6:47:00, Stop date: 08/15/15 6:47:00 Emend 2014-08 No Notes: Memoria 2-14 Same as: l 16:00: Emend [place] 00 restricted to the Hematology /Oncology service for high and moderate emetogenic regimen according to ASCO Guidelines [place] Only for Chemothera py-Induced nausea & vomiting heparin 2014-08 No Notes: Memoria sodium, 2-14 porcine l porcine 16:00: heparin Dav 2500 UNT/ML 00 Injectable Solution Cefazolin 2014-08 No Notes: Memori a 2-14 Same as: l 16:00: Ancef [place] 00 Emend 2014-08 No Notes: Memoria 2-14 Same as: l 16:00: Emend Adv 00 restricted to the Hematology /Oncology service for high and moderate emetogenic regimen according to ASCO Guidelines [place] Only for Chemothera py-Induced nausea & vomiting heparin 2014-08 No Notes: Memoria sodium, 2-14 porcine l porcine 16:00: heparin Dav 2500 UNT/ML 00 Injectable Solution Cefazolin 2014-08 No Notes: Memori a 2-14 Same as: l 16:00: Ancef [place] 00 Omeprazole 2014-08 Yes 40 mg = 1 Me moria 40 MG 2-14 cap, PO, l Enteric 15:45: Daily, # Grarett n Coated 00 30 cap, 0 Capsule Refill(s) [Prilosec] lamotrigine 2014-08 Yes 150 mg = 1 Memoria 150 MG Oral 2-14 tab, PO, l Tablet 15:45: Bedtime, 0 [place] nn [Lamictal] 00 Refill(s) Omeprazole 2014-08 Yes 40 mg = 1 Me moria 40 MG 2-14 cap, PO, l Enteric 15:45: Daily, # Garrett n Coated 00 30 cap, 0 Capsule Refill(s) [Prilosec] lamotrigine 2014-08 Yes 150 mg = 1 Memoria 150 MG Oral 2-14 tab, PO, l Tablet 15:45: Bedtime, 0 Brig[place] nn [Lamictal] 00 Refill(s) Hydrochloro 2014-08 Yes 1 tab, PO, Memoria thiazide 25 2-14 Daily, # l MG / 15:44: 30 tab, 0 Dav Lisinopril 00 Refill(s) 20 MG Oral Tablet Melatonin 2014-08 Yes 1 mg = 1 Me moria mg oral 2-14 tab, PO, l tablet 15:44: Bedtime, Dav 00 PRN for insomnia, # 90 tab, 0 Refill(s) Depo-Speech Assistant 2014-08 Yes 150 mg = 1 Memoria a 2-14 mL, IM, l Contracepti 15:44: q3mo, # 1 H ermann ve 150 00 mL, 0 mg/mL Refill(s) intramuscul ar suspension Hydrochloro 2014-08 Yes 1 tab, PO, Memoria thiazide 25 2-14 Daily, # l MG / 15:44: 30 tab, 0 [place] Lisinopril 00 Refill(s) 20 MG Oral Tablet Melatonin 2014-08 Yes 1 mg = 1 Me moria mg oral 2-14 tab, PO, l tablet 15:44: Bedtime, [place] 00 PRN for insomnia, # 90 tab, 0 Refill(s) Depo-Speech Assistant 2014-08 Yes 150 mg = 1 Memoria a 2-14 mL, IM, l Contracepti 15:44: q3mo, # 1 H ermann ve 150 00 mL, 0 mg/mL Refill(s) intramuscul ar suspension [id number] 2014-08 No 1,000 mL, Memori a 1,000 mL 2-14 Rate: 125 l 15:13: ml/hr, Dav 00 Infuse over: 8 hr, Route: IV, Dosing Weight 175.909 kg, Total Volume: 1,000, Start date: 08/12/15 9:13:00, Duration: 4 day, Stop date: 08/16/15 9:12:00 72 HR 2014-08 No Notes: Memoria Scopolamine 2-14 Change l 0.0139 15:13: patch [place] MG/HR 00 every 72 Transdermal hours Patch (Same as: Transderm- Scop) [id number] 2014-08 No 1,000 mL, Memori a 1,000 mL 2-14 Rate: 125 l 15:13: ml/hr, [place] 00 Infuse over: 8 hr, Route: IV, Dosing Weight 175.909 kg, Total Volume: 1,000, Start date: 08/12/15 9:13:00, Duration: 4 day, Stop date: 08/16/15 9:12:00 72 HR 2014-08 No Notes: Memoria Scopolamine 2-14 Change l 0.0139 15:13: patch [place] MG/HR 00 every 72 Transdermal hours Patch (Same as: Transderm- Scop) Naloxone 2014-08 No 0.1 mg, Memori a 0-12 Route: l 14:25: IVP, [place] 00 Q2MIN, Dosing Weight 175.909, kg, PRN Narcotic Reversal, Start date: 06/10/15 9:25:00, Duration: 4 doses or times, Stop date: Limited # of times Flumazenil 2014-08 No 0.1 mg, Henok vaen 0-12 Route: l 14:25: IVP, [place] 00 Q5Min, Dosing Weight 175.909, kg, PRN Other -See Comment, Start date: 06/10/15 9:25:00, Duration: 30 day, Stop date: 07/10/15 8:24:00 Naloxone 2014-08 No 0.1 mg, Memori a 0-12 Route: l 14:25: IVP, [place] 00 Q2MIN, Dosing Weight 175.909, kg, PRN Narcotic Reversal, Start date: 06/10/15 9:25:00, Duration: 4 doses or times, Stop date: Limited # of times Flumazenil 2014-08 No 0.1 mg, Henok vane 0-12 Route: l 14:25: IVP, [place] 00 Q5Min, Dosing Weight 175.909, kg, PRN Other -See Comment, Start date: 06/10/15 9:25:00, Duration: 30 day, Stop date: 07/10/15 8:24:00 Sodium 2014-08 No 1,000 mL, Memori a Chloride 0-12 Rate: 25 l 0.154 12:06: ml/hr, Dav MEQ/ML 00 Infuse Injectable over: 40 Solution hr, Route: IV, Dosing Weight 175.909 kg, Total Volume: 1,000, Start date: 06/10/15 7:06:00, Duration: 30 day, Stop date: 07/10/15 7:05:00 Sodium 2014-08 No 1,000 mL, Memori a Chloride 0-12 Rate: 25 l 0.154 12:06: ml/hr, Dav MEQ/ML 00 Infuse Injectable over: 40 Solution hr, Route: IV, Dosing Weight 175.909 kg, Total Volume: 1,000, Start date: 06/10/15 7:06:00, Duration: 30 day, Stop date: 07/10/15 7:05:00 Hydrochloro 2014-08 No 1 tab, PO, Memoria thiazide 25 0-09 Daily, # l MG / 19:35: 30 tab, 0 Dav Lisinopril 00 Refill(s) 20 MG Oral Tablet oxcarbazepi 2014-08 Yes 600 mg = 2 Memoria ne 300 MG 0-09 tab, PO, l Oral Tablet 19:35: BID, # 120 Dav [Trileptal] 00 tab, 0 Refill(s) Hydrochloro 2014-08 No 1 tab, PO, Memoria thiazide 25 0-09 Daily, # l MG / 19:35: 30 tab, 0 [place] Lisinopril 00 Refill(s) 20 MG Oral Tablet oxcarbazepi 2014-08 Yes 600 mg = 2 Memoria ne 300 MG 0-09 tab, PO, l Oral Tablet 19:35: BID, # 120 Dav [Trileptal] 00 tab, 0 Refill(s) atomoxetine 2014-08 Yes 80 mg = 1 M emoria 80 MG Oral 0-09 cap, PO, l Capsule 19:34: QAM, # 30 Brig[place] nn [Strattera] 00 cap, 0 Refill(s) atomoxetine 2014-08 Yes 80 mg = 1 M emoria 80 MG Oral 0-09 cap, PO, l Capsule 19:34: QAM, # 30 Brig[place] nn [Strattera] 00 cap, 0 Refill(s) Wellbutrin 2014-08 Yes PO, 0 Memori a 0-09 Refill(s) l 19:31: [place] 00 Wellbutrin 2014-08 Yes PO, 0 Memori a 0-09 Refill(s) l 19:31: [place] 00 benzonatate benzonatate No benzonatat [facility] 200 mg 200 mg e 200 mg Medical capsule capsule capsule Estarylla Estarylla No Estarylla [facility] 0.25 mg-35 0.25 mg-35 0.25 mg-35 Medical mcg tablet mcg tablet mcg tablet TAKE 1 TAKE 1 TAKE 1 TABLET BY TABLET BY TABLET BY MOUTH EVERY MOUTH EVERY MOUTH DAY DAY EVERY DAY ibuprofen ibuprofen No ibuprofen [facility] 600 mg 600 mg 600 mg Medical tablet TAKE tablet TAKE tablet 1 TABLET BY 1 TABLET BY TAKE 1 MOUTH EVERY MOUTH EVERY TABLET BY 6 HOURS 6 HOURS MOUTH NEEDED FOR NEEDED FOR EVERY 6 PAIN OR PAIN OR HOURS FEVER WITH FEVER WITH NEEDED FOR FOOD FOOD PAIN OR FEVER WITH FOOD Novolin Novolin No Novolin [facility] 70/30 U-100 70/30 U-100 70/30 Medical Insulin 100 Insulin 100 U-100 unit/mL unit/mL Insulin subcutaneou subcutaneou 100 s s unit/mL suspension suspension subcutaneo us suspension venlafaxine venlafaxine No venlafaxin [facility] ER 150 mg ER 150 mg e ER 150 M edical capsule,ext capsule,ext mg ended ended capsule,ex release 24 release 24 tended hr TAKE 2 hr TAKE 2 release 24 CAPSULES BY CAPSULES BY hr TAKE 2 MOUTH ONCE MOUTH ONCE CAPSULES DAILY DAILY BY MOUTH ONCE DAILY buspirone buspirone No buspirone [facility] 10 mg 10 mg 10 mg Medical tablet TAKE tablet TAKE tablet 2 TABLETS 2 TABLETS TAKE 2 BY MOUTH BY MOUTH TABLETS BY THREE TIMES THREE TIMES MOUTH DAILY DAILY THREE TIMES DAILY medroxyprog medroxyprog No 1mL medroxypro [facility] esterone esterone gesterone Me dical 150 mg/mL 150 mg/mL 150 mg/mL intramuscul intramuscul intramuscu ar ar lar suspension suspension suspension Inject 1 mL Inject 1 mL Inject 1 every 3 every 3 mL every 3 months by months by months by intramuscul intramuscul intramuscu ar route. ar route. lar route. methylpheni methylpheni No 1 Q1D methylphen [facility] date ER 27 date ER 27 idate ER Medical mg mg 27 mg tablet,exte tablet,exte tablet,ext nded nded ended release 24 release 24 release 24 hr Take 1 hr Take 1 hr Take 1 tablet tablet tablet every day every day every day by oral by oral by oral route. route. route. mirtazapine mirtazapine No mirtazapin [facility] 15 mg 15 mg e 15 mg Medical tablet TAKE tablet TAKE tablet 1 TABLET BY 1 TABLET BY TAKE 1 MOUTH AT MOUTH AT TABLET BY BEDTIME BEDTIME MOUTH AT NIGHTLY NIGHTLY BEDTIME NIGHTLY naproxen naproxen No 1 BID naproxen Sophie via 500 mg 500 mg 500 mg Medical tablet Take tablet Take tablet 1 tablet 1 tablet Take 1 twice a day twice a day tablet by oral by oral twice a route as route as day by needed. needed. oral route as needed. oxcarbazepi oxcarbazepi No oxcarbazep [facility] ne 300 mg ne 300 mg ine 300 mg Medical tablet TAKE tablet TAKE tablet 1 TABLET BY 1 TABLET BY TAKE 1 MOUTH TWICE MOUTH TWICE TABLET BY DAILY DAILY MOUTH TWICE DAILY risperidone risperidone No risperidon [facility] 2 mg tablet 2 mg tablet e 2 mg Medical TAKE 1 TAKE 1 tablet TABLET BY TABLET BY TAKE 1 MOUTH TWICE MOUTH TWICE TABLET BY DAILY DAILY MOUTH TWICE DAILY Sprintec Sprintec No 1 Q1D Sprintec Sophie via (28) 0.25 (28) 0.25 (28) 0.25 Medical mg-35 mcg mg-35 mcg mg-35 mcg tablet Take tablet Take tablet 1 tablet 1 tablet Take 1 every day every day tablet by oral by oral every day route. route. by oral route. topiramate topiramate No topiramate [facility] 100 mg 100 mg 100 mg Medical tablet TAKE tablet TAKE tablet 1 TABLET BY 1 TABLET BY TAKE 1 MOUTH TWICE MOUTH TWICE TABLET BY DAILY DAILY MOUTH TWICE DAILY venlafaxine venlafaxine No venlafaxin [facility] 75 mg 75 mg e 75 mg Medical tablet TAKE tablet TAKE tablet 2 TABLETS 2 TABLETS TAKE 2 BY MOUTH BY MOUTH TABLETS BY ONCE DAILY ONCE DAILY MOUTH ONCE WITH FIRST WITH FIRST DAILY WITH MEAL OF THE MEAL OF THE FIRST MEAL DAY DAY OF THE DAY venlafaxine venlafaxine No venlafaxin [facility] ER 150 mg ER 150 mg e ER 150 M edical capsule,ext capsule,ext mg ended ended capsule,ex release 24 release 24 tended hr TAKE 2 hr TAKE 2 release 24 CAPSULES BY CAPSULES BY hr TAKE 2 MOUTH ONCE MOUTH ONCE CAPSULES DAILY DAILY BY MOUTH ONCE DAILY buspirone buspirone No buspirone [facility] 10 mg 10 mg 10 mg Medical tablet TAKE tablet TAKE tablet 2 TABLETS 2 TABLETS TAKE 2 BY MOUTH BY MOUTH TABLETS BY THREE TIMES THREE TIMES MOUTH DAILY DAILY THREE TIMES DAILY Estarylla Estarylla No Estarylla [facility] 0.25 mg-35 0.25 mg-35 0.25 mg-35 Medical mcg tablet mcg tablet mcg tablet TAKE 1 TAKE 1 TAKE 1 TABLET BY TABLET BY TABLET BY MOUTH EVERY MOUTH EVERY MOUTH DAY DAY EVERY DAY medroxyprog medroxyprog No 1mL medroxypro [facility] esterone esterone gesterone Me dical 150 mg/mL 150 mg/mL 150 mg/mL intramuscul intramuscul intramuscu ar ar lar suspension suspension suspension Inject 1 mL Inject 1 mL Inject 1 every 3 every 3 mL every 3 months by months by months by intramuscul intramuscul intramuscu ar route. ar route. lar route. methylpheni methylpheni No 1 Q1D methylphen [facility] date ER 27 date ER 27 idate ER Medical mg mg 27 mg tablet,exte tablet,exte tablet,ext nded nded ended release 24 release 24 release 24 hr Take 1 hr Take 1 hr Take 1 tablet tablet tablet every day every day every day by oral by oral by oral route. route. route. metronidazo metronidazo No metronidaz [facility] le 500 mg le 500 mg ole 500 mg Medical tablet TAKE tablet TAKE tablet 1 TABLET BY 1 TABLET BY TAKE 1 MOUTH EVERY MOUTH EVERY TABLET BY 12 HOURS 12 HOURS MOUTH FOR 9 DAYS FOR 9 DAYS EVERY 12 HOURS FOR 9 DAYS mirtazapine mirtazapine No mirtazapin [facility] 15 mg 15 mg e 15 mg Medical tablet TAKE tablet TAKE tablet 1 TABLET BY 1 TABLET BY TAKE 1 MOUTH AT MOUTH AT TABLET BY BEDTIME BEDTIME MOUTH AT NIGHTLY NIGHTLY BEDTIME NIGHTLY naproxen naproxen No naproxen [facility] via 500 mg 500 mg 500 mg Medical tablet TAKE tablet TAKE tablet 1 TABLET 1 TABLET TAKE 1 TWICE A DAY TWICE A DAY TABLET BY ORAL BY ORAL TWICE A ROUTE ROUTE DAY BY NEEDED. NEEDED. ORAL ROUTE NEEDED. oxcarbazepi oxcarbazepi No oxcarbazep [facility] ne 300 mg ne 300 mg ine 300 mg Medical tablet TAKE tablet TAKE tablet 1 TABLET BY 1 TABLET BY TAKE 1 MOUTH TWICE MOUTH TWICE TABLET BY DAILY DAILY MOUTH TWICE DAILY risperidone risperidone No risperidon [facility] 2 mg tablet 2 mg tablet e 2 mg Medical TAKE 1 TAKE 1 tablet TABLET BY TABLET BY TAKE 1 MOUTH TWICE MOUTH TWICE TABLET BY DAILY DAILY MOUTH TWICE DAILY topiramate topiramate No topiramate [facility] 100 mg 100 mg 100 mg Medical tablet TAKE tablet TAKE tablet 1 TABLET BY 1 TABLET BY TAKE 1 MOUTH TWICE MOUTH TWICE TABLET BY DAILY DAILY MOUTH TWICE DAILY venlafaxine venlafaxine No venlafaxin [facility] 75 mg 75 mg e 75 mg Medical tablet TAKE tablet TAKE tablet 2 TABLETS 2 TABLETS TAKE 2 BY MOUTH BY MOUTH TABLETS BY ONCE DAILY ONCE DAILY MOUTH ONCE WITH FIRST WITH FIRST DAILY WITH MEAL OF THE MEAL OF THE FIRST MEAL DAY DAY OF THE DAY venlafaxine venlafaxine No venlafaxin [facility] ER 150 mg ER 150 mg e ER 150 M edical capsule,ext capsule,ext mg ended ended capsule,ex release 24 release 24 tended hr TAKE 2 hr TAKE 2 release 24 CAPSULES BY CAPSULES BY hr TAKE 2 MOUTH ONCE MOUTH ONCE CAPSULES DAILY DAILY BY MOUTH ONCE DAILY Immunizations Ordered Immunization Filled Immunization Date Status Commen ts Source Name Name Xumii COVID-19 2021-04-05 Completed [facility] AD26 VACCINATION 00:00:00 Hospital pneumococcal 2015-08-16 Completed [facility] 23-valent 18:10:35 vaccine<sup>1</sup> pneumococcal 2015-08-16 Completed [facility] 23-valent 18:10:35 vaccine<sup>1</sup> Vital Signs Vital Name Observation Time Observation Value Comments Source Systolic blood 2022-08-26 19:08:00 166 mm[Hg] [facility] Diastolic blood 2022-08-26 19:08:00 99 mm[Hg] Unive rsity of [facility] Heart rate 2022-08-26 19:08:00 77 /min [facility]i ty [facility] Body temperature 2022-08-26 19:08:00 37 Gabrielle [facility] 2022-08-26 19:08:00 18 /min [facility] Body height 2022-08-26 19:08:00 170.2 cm Universi ty [facility] Body weight 2022-08-26 19:08:00 147.419 [facility] BMI 2022-08-26 19:08:00 50.90 kg/m2 [facility] Oxygen saturation in 2022-08-26 19:08:00 98 /min [facility] Arterial blood by [facility] Pulse oximetry Branch BP Diastolic 2022-04-08 00:00:00 90 mm[Hg] Faith Nicole edical Height 2022-04-08 00:00:00 66 [in_i] Faith Nicole [facility]ical BMI (Body Mass 2022-04-08 00:00:00 53.7 kg/m2 [facility] Index) BP Systolic 2022-04-08 00:00:00 142 mm[Hg] Faith [facility] Body Weight 2022-04-08 00:00:00 333 [lb_av] Faith Nicole [facility] BP Diastolic 2021-12-18 00:00:00 86 mm[Hg] Faith [facility] Height 2021-12-18 00:00:00 66 [in_i] Fatih Nicole edical BMI (Body Mass 2021-12-18 00:00:00 54.7 kg/m2 [facility] Index) BP Systolic 2021-12-18 00:00:00 140 mm[Hg] [facility] Body Weight 2021-12-18 00:00:00 339 [lb_av] Faith [facility] BP Diastolic 2021-11-25 00:00:00 88 mm[Hg] Faith [facility] BP Systolic 2021-11-25 00:00:00 138 mm[Hg] [facility] Body Weight 2021-11-25 00:00:00 338 [lb_av] Faith Nicole edical Systolic blood 2022-06-12 02:38:00 128 mm[Hg] [facility] pressure Diastolic blood 2022-06-12 02:38:00 77 mm[Hg] [facility] pressure Heart rate 2022-06-12 02:38:00 63 /min [facility] Respiratory rate 2022-06-12 02:38:00 18 /min [facility] Oxygen saturation in 2022-06-12 02:38:00 97 /min [facility] Arterial blood by Pulse oximetry Body temperature 2022-06-11 23:40:00 36.5 Gabrielle [facility] Body height 2022-06-11 23:38:00 170.2 cm [facility] Body weight 2022-06-11 23:38:00 145.151 kg [facility] BMI 2022-06-11 23:38:00 50.12 kg/m2 [facility] Systolic (mm Hg) 2022-03-19 07:00:00 [facility] Diastolic (mm Hg) 2022-03-19 07:00:00 [facility] orial Dav Respitory Rate 2022-03-19 07:00:00 [facility] [place] Heart Rate 2022-03-19 07:00:00 [facility] Height 2022-03-19 03:25:00 170.18 cm [facility] BMI Calculated 2022-03-19 03:25:00 [facility] Weight 2022-03-19 03:25:00 [facility] Systolic (mm Hg) 2022-03-19 03:25:00 Henok rial [place] Diastolic (mm Hg) 2022-03-19 03:25:00 Mem orial Dav Heart Rate 2022-03-19 03:25:00 [facility] Respitory Rate 2022-03-19 03:25:00 [facility] [place] Temperature Oral (F) 2022-03-19 03:25:00 98.4 F [facility] [place] Temperature Oral (F) 2022-03-14 04:45:00 99.1 F [facility] [place] Heart Rate 2022-03-14 04:45:00 [facility] Respitory Rate 2022-03-14 04:45:00 [facility] [place] Systolic (mm Hg) 2022-03-14 04:45:00 Henok rial [place] Diastolic (mm Hg) 2022-03-14 04:45:00 Mem orial Dav Weight 2022-03-14 00:40:00 [facility] [place] Systolic (mm Hg) 2022-03-14 00:40:00 Henok [facility] [place] Diastolic (mm Hg) 2022-03-14 00:40:00 Mem orial Dav Heart Rate 2022-03-14 00:40:00 [facility] [place] Respitory Rate 2022-03-14 00:40:00 [facility] Temperature Oral (F) 2022-03-14 00:40:00 100 F [facility] Systolic (mm Hg) 2021-01-21 01:00:00 Henok [facility] Diastolic (mm Hg) 2021-01-21 01:00:00 Mem orial Dav Heart Rate 2021-01-21 01:00:00 [facility] Respitory Rate 2021-01-21 01:00:00 [facility] [place] Temperature Oral (F) 2021-01-21 01:00:00 98.5 F [facility] Height 2021-01-20 21:08:00 170.18 cm [facility] BMI Calculated 2021-01-20 21:08:00 [facility] [place] Weight 2021-01-20 21:08:00 [facility] Systolic (mm Hg) 2021-01-20 21:08:00 Henok rial Dav Diastolic (mm Hg) 2021-01-20 21:08:00 Mem orial [place] Heart Rate 2021-01-20 21:08:00 [facility] Respitory Rate 2021-01-20 21:08:00 [facility] Temperature Oral (F) 2021-01-20 21:08:00 98.7 F [facility] Weight 2015-09-19 21:05:00 [facility] [place] Temperature Oral (F) 2015-09-19 20:45:00 97.7 F [facility] Systolic (mm Hg) 2015-09-19 20:45:00 Henok rial Dav Diastolic (mm Hg) 2015-09-19 20:45:00 Mem orial Dav Heart Rate 2015-09-19 20:45:00 [facility] Respitory Rate 2015-09-19 20:45:00 [facility] [place] Respitory Rate 2015-09-19 18:54:00 [facility] [place] Systolic (mm Hg) 2015-09-19 18:54:00 Henok rial Dav Diastolic (mm Hg) 2015-09-19 18:54:00 Mem orial [place] Systolic (mm Hg) 2015-09-19 18:39:00 Henok rial Dav Diastolic (mm Hg) 2015-09-19 18:39:00 Mem orial Dav Respitory Rate 2015-09-19 18:39:00 Memori al [facility] Heart Rate 2015-09-19 18:04:00 [facility] [place] Temperature Oral (F) 2015-09-19 13:40:00 97.8 F [facility] Heart Rate 2015-09-19 13:40:00 [facility] [place] Temperature Oral (F) 2015-09-19 11:08:00 97.9 F [facility] [place] Weight 2015-09-18 05:03:00 [facility] [place] Weight 2015-09-18 00:07:00 [facility] [place] Height 2015-09-18 00:07:00 170.18 cm [facility] BMI Calculated 2015-09-18 00:07:00 [facility] Temperature Oral (F) 2015-08-26 22:06:00 98 F [facility] [place] Heart Rate 2015-08-26 22:06:00 [facility] [place] Respitory Rate 2015-08-26 22:06:00 [facility] [place] Systolic (mm Hg) 2015-08-26 22:06:00 Henok [facility] [place] Diastolic (mm Hg) 2015-08-26 22:06:00 Mem o[facility] [place] Temperature Oral (F) 2015-08-26 20:46:00 98.0 F [facility] [place] Systolic (mm Hg) 2015-08-26 20:46:00 Henok rial Dav Diastolic (mm Hg) 2015-08-26 20:46:00 Mem orial Dav Respitory Rate 2015-08-26 20:46:00 [facility] [place] Heart Rate 2015-08-26 20:46:00 [facility] Weight 2015-08-26 16:38:00 [facility] BMI Calculated 2015-08-26 16:38:00 [facility] Respitory Rate 2015-08-26 16:38:00 [facility] [place] Heart Rate 2015-08-26 16:38:00 [facility] [place] Systolic (mm Hg) 2015-08-26 16:38:00 Henok [facility] [place] Diastolic (mm Hg) 2015-08-26 16:38:00 Mem orial Dav Height 2015-08-26 16:38:00 170.18 cm [facility] Temperature Oral (F) 2015-08-26 16:38:00 97.9 F [facility] [place] Systolic (mm Hg) 2015-08-16 18:33:00 Henok [facility] [place] Diastolic (mm Hg) 2015-08-16 18:33:00 Mem orial Dav Heart Rate 2015-08-16 18:33:00 [facility] [place] Respitory Rate 2015-08-16 18:33:00 [facility] [place] Temperature Oral (F) 2015-08-16 18:33:00 97.9 F [facility] [place] Respitory Rate 2015-08-16 14:00:00 Memori al [facility] Systolic (mm Hg) 2015-08-16 14:00:00 Henok [facility] Diastolic (mm Hg) 2015-08-16 14:00:00 Mem orial Dav Temperature Oral (F) 2015-08-16 14:00:00 98.0 F [facility] Heart Rate 2015-08-16 14:00:00 [facility] [place] Temperature Oral (F) 2015-08-16 10:20:00 98.1 F [facility] Heart Rate 2015-08-16 10:20:00 [facility] Systolic (mm Hg) 2015-08-16 10:20:00 Henok rial [facility] Diastolic (mm Hg) 2015-08-16 10:20:00 Mem o[facility] [place] Respitory Rate 2015-08-16 10:20:00 [facility] [place] Height 2015-08-15 17:30:00 170.18 cm [facility] Weight 2015-08-15 17:30:00 [facility] BMI Calculated 2015-08-15 17:30:00 [facility] [place] Weight 2015-08-15 12:45:00 [facility] Height 2015-08-12 15:32:00 170.18 cm [facility] [place] Weight 2015-08-12 15:32:00 [facility] BMI Calculated 2015-08-12 15:32:00 [facility] [place] Respitory Rate 2015-06-10 14:07:00 [facility] [place] Systolic (mm Hg) 2015-06-10 14:07:00 Henok [facility] [place] Diastolic (mm Hg) 2015-06-10 14:07:00 Mem orial Dav Systolic (mm Hg) 2015-06-10 13:52:00 Henok [facility] Diastolic (mm Hg) 2015-06-10 13:52:00 Mem [facility] [place] Respitory Rate 2015-06-10 13:52:00 [facility] Systolic (mm Hg) 2015-06-10 13:37:00 Henok rial [facility] Diastolic (mm Hg) 2015-06-10 13:37:00 Mem orial Dav Respitory Rate 2015-06-10 13:37:00 [facility] [place] Weight 2015-06-07 19:28:00 [facility] BMI Calculated 2015-06-07 19:28:00 [facility] Height 2015-06-07 19:28:00 170.18 cm [facility] Procedures Procedure Date / Time Performing Source Performed Clinician XR CHEST 2 VW 2022-08-26 [facility] of 20:46:19 [facility] RAPID INFLUENZA A/B 2022-08-26 [facility] o f 19:56:00 [facility] COVID-19 (ID NOW RAPID TESTING) 2022-08-26 [facility] of 19:56:00 [facility] NOTICE OF PRIVACY PRACTICES 2022-08-26 Doctor [facility] ersity of 18:35:53 Unassigned, No [facility] CONSENT/REFUSAL FOR DIAGNOSIS AND 2022-08-26 Doctor Beatrice of TREATMENT 18:35:08 Unassigned, No [facility] URINE CULTURE 2022-06-12 Shayne Menezes 02:11:00 [facility] URINALYSIS 2022-06-12 Shayne Menezes 02:11:00 [facility] HCG QUALITATIVE, URINE SCREEN 2022-06-12 Shayne Menezes [facility] 02:11:00 [facility] INFLUENZA ANTIGEN 2022-06-12 Shayne Menezes 00:07:00 [facility] CBC WITH PLATELET AND DIFFERENTIAL 2022-06-12 Amaury Menezes 00:07:00 [facility] COMPREHENSIVE METABOLIC PANEL 2022-06-12 Shayne Menezes [facility] 00:07:00 [facility] ESTIMATED GFR 2022-06-12 Shayne Menezes 00:07:00 [facility] MANUAL DIFFERENTIAL 2022-06-12 Shayne Menezes 00:07:00 [facility] XR CHEST 1 VW 2022-06-11 Shayne Menezes 23:55:13 [facility] MRI PITUITARY W WO CONTRAST 2021-12-05 Kaycee Longo odist 16:05:12 [facility] MRI, pituitary, w/wo contrast 2021-11-27 [facility] 00:00:00 US PELVIC TRANSABDOMINAL 2021-11-[address] 07:30:53 [facility] US PELVIC TRANSVAGINAL 2021-11-09 Edin Lakhani 07:30:53 [facility] HCG QUALITATIVE, SERUM SCREEN 2021-11-09 [facility] 03:50:00 [facility] HC COMPLETE BLD COUNT W/AUTO DIFF 2021-11-09 Edin Lakhani 03:35:00 [facility] PROTHROMBIN TIME WITH INR 2021-11-09 Jack Lakhani ist 03:35:00 [facility] PARTIAL THROMBOPLASTIN TIME (PTT) 2021-11-09 Edin Lakhani 03:35:00 [facility] COMPREHENSIVE METABOLIC PANEL 2021-11-09 [facility] 03:35:00 [facility] ESTIMATED GFR 2021-11-09 Edin Lakhani 03:35:00 [facility] Gastric Bypass for Obesity 2014-08-30 [facility] 00:00:00 Cholecystectomy 2014-08-30 [facility] 00:00:00 Arthroscopy of knee<sup>1</sup> [facility] Esophagogastroduodenoscopy [facility] [place] Banding of gastric varices Memor ial [facility] Plan of Care Planned Activity Planned Date Details Comments Source Future Scheduled Test 2022-10-17 [facility] 21:28:36 screening (procedure) [code = 362876672] Future Scheduled Test 2022-10-17 [facility] 21:28:36 malignant neoplasm of cervix (procedure) [code = 527587802] Future Scheduled Test 2022-10-17 COVID-19 VACCINE (3 [facility] 21:28:36 - Booster for Ron series) [code = COVID-19 VACCINE (3 - Booster for Ron series)] Future Scheduled Test 2022-10-17 INFLUENZA VACCINE M ethodist [facility] 21:28:36 [code = INFLUENZA VACCINE] Diagnostic Test 2021-12-18 unlisted lab [code [facility] Pending 00:00:00 = unlisted lab] Future Appointment 2022-12-07 Kaycee Longo, [address] [facility] 00:00:00 [facility]; [address], [place] [address] Encounters Start End Encounter Admission Attending Care Care Encounter Source Date/Time Date/Time Type Type Clinicians Facility Department ID 2022-05-13 Outpatient [facility] [id number] [place] 08:18:57 [id number] [facility] 2022-05-07 Outpatient [facility] [id number] [place] 12:12:06 [id number] [facility] 2022-05-06 Outpatient [facility] [id number] [place] 07:02:43 [id number] [facility] 2022-03-26 Outpatient [facility] [id number] [place] 11:04:27 [id number] [facility] 2022-02-06 Outpatient [facility] [id number] [place] 09:50:06 [id number] [facility] 2021-11-28 Outpatient [facility] [id number] [place] 13:41:01 [id number] Replaced by [facility] 2021-11-26 Outpatient [facility] [id number] [place] 12:18:16 [id number] Replaced by [facility] 2021-11-24 Outpatient [facility] [id number] [place] 06:46:20 [id number] [facility] 2016-09-10 Inpatient [facility] [id number] [facility] 18:31:18 Health 2016-09-03 Inpatient [facility] [id number] [place] [facility] 19:49:43 Health 2016-09-02 Inpatient [facility] [id number] [place] [facility] 14:46:00 Health 2016-08-28 Inpatient [facility] [id number] [place] [facility] 12:49:08 Health 2016-08-25 Inpatient [facility] [id number] [place] [facility] 18:38:06 Health 2016-08-25 Inpatient [facility] [id number] [facility] 00:00:00 Health 2016-08-25 Inpatient [facility] [id number] [facility] 00:00:00 [facility] 2016-08-24 Inpatient [facility] [id number] [place] [facility] 12:38:32 Health 2016-08-23 Inpatient [facility] [id number] [facility] 23:40:15 Health 2016-08-23 Inpatient [facility] [id number] [facility] 18:01:15 Health 2016-08-23 Inpatient [facility] [id number] [place] r[facility] 05:23:14 [facility] 2016-08-23 Inpatient [facility] [id number] [place] rris 01:38:20 Health 2016-08-23 Inpatient [facility] [id number] [place] r[facility] 01:10:06 [facility] 2016-08-22 Inpatient [facility] [id number] [place] [facility] 18:58:47 [facility] 2022-08-26 2022-08-26 Emergency X JAQUELIN, [facility] ERT [id number] Univers 13:09:00 16:01:00 DOUG sarmiento [facility] 2022-08-26 2022-08-26 [facility] [id number] Univers 13:09:00 16:01:00 Doug BERGMAN 350.1.13.10 cristina [facility] 4.2.7.2.686 [facility] [id number] [address] 2022-08-06 2022-08-06 Outpatient [facility] [id number] [place] 00:00:00 00:00:00 [facility] 2022-06-17 2022-06-17 [facility] [id number] [place] 00:00:00 00:00:00 [facility] 2022-06-11 2022-06-11 Emergency Viktor, 1.2.840.1 [id number] [facility] 18:26:00 22:09:[id number] 3.430.2.7 Hospit a .3.400649 l .8 2022-06-11 2022-06-11 Travel 1.2.840.1 [id number] [id number] [facility] 00:00:00 00:00:[address] 3.430.2.7 0.2.7.3.698 Ho spita .3.986970 084.8 l .8 2022-06-11 2022-06-11 Emergency [facility] [id number] [place] 00:00:00 00:00:[address] 2022-05-26 2022-05-26 Outpatient [facility] [id number] [place] 00:00:00 00:00:00 [facility] 2022-05-25 2022-05-25 Outpatient [facility] PRIV PRIV [id number] [facility] 00:00:00 00:00:00 _Diggs_R [id number] Medic al 2022-05-25 2022-05-25 [facility] [id number] [place] 00:00:00 00:00:00 [facility] 2022-05-13 2022-05-13 [facility] [id number] [place] 08:26:30 11:29:53 [facility] 2022-05-01 2022-05-01 Outpatient [facility] [id number] [place] 00:00:00 00:00:00 [facility] 2022-04-14 2022-04-14 Outpatient [facility] [id number] [place] 00:00:00 00:00:00 [facility] 2022-04-14 2022-04-14 [facility] [id number] [place] 00:00:00 00:00:00 [facility] 2022-04-08 2022-04-08 Outpatient [facility] PRIV PRIV [id number] [facility] 00:00:00 00:00:00 _Diggs_R [id number] Medic al 2022-04-08 2022-04-08 Kaycee [facility]IV [facility] 10 [facility] 00:00:00 00:00:00 Donta [facility] NUTRITION COORDINATOR: [id number] _SWHANBWH [facility] _[facility] [address], [place] [address] , Ph. 2022-04-08 2022-04-08 Outpatient Donta [facility] PRIV [id number] 00:00:00 00:00:00 Kaycee [id number] 2022-04-06 2022-04-06 Outpatient [facility] [id number] [place] 13:48:21 14:32:31 [facility] 2022-03-31 2022-03-31 Outpatient [facility] [id number] [place] 00:00:00 00:00:00 [facility] 2022-03-19 2022-03-19 Emergency [facility] [id number] Memoria 03:20:40 07:05:00 liang Demarco 02 [facility] 2022-03-19 2022-03-19 Emergency [facility] [id number] Memoria 03:20:40 07:05:00 liang Demarco 02 [facility] 2022-03-18 2022-03-19 Outpatient ALLEN BarreraPL MHPL [id number] 22:20:40 02:05:00 Reetoro 02 Bonifacio 2022-03-18 2022-03-19 Emergency E BARRERA, MHBL MHBL [id number] MHBL 22:20:00 02:05:00 REEVA 2022-03-14 2022-03-14 Emergency [facility] [id number] Memoria 00:15:07 05:00:00 liang Demarco 01 [facility] 2022-03-14 2022-03-14 Emergency nullFl[facility] [id number] Memoria 00:15:07 05:00:00 liang Demarco 01 [facility] 2022-03-13 2022-03-14 Outpatient JUAN Thomas MHPL [id number] 19:15:07 00:00:00 Sukhwinder Sousa 2022-03-13 2022-03-14 Outpatient JUAN ThomasPL [id number] 19:15:07 00:00:00 Abdiwahab 01 Sousa 2022-03-13 2022-03-14 Emergency E LUIS, MHBL BL [id number] MHBL 19:15:00 00:00:00 ABDIWAHAB 2022-03-11 2022-03-11 Outpatient MARY JO BELCHER [id number] [place] 11:25:00 11:25:00 PIETRO 0713 [facility] 2022-02-24 2022-02-24 [facility] [id number] [place] 09:53:24 10:41:58 [facility] 2022-02-24 2022-02-24 Outpatient [facility] [id number] [place] 10:34:06 10:41:26 [facility] 2022-02-23 2022-02-24 Outpatient SHILPA, [facility] [id number] [place] 14:37:42 07:15:27 [facility] 2022-02-24 2022-02-24 [facility] [id number] [place] 00:00:00 00:00:00 [facility] 2022-02-10 2022-02-10 [facility] [id number] [place] 00:00:00 00:00:00 [facility] 2022-02-10 2022-02-10 Outpatient [facility] [id number] [place] 00:00:00 00:00:00 [facility] 2022-02-05 2022-02-06 Emergency 1 [facility] [id number] [place] 23:16:00 01:00:00 [facility] 2022-02-05 2022-02-06 Emergency SUELLENFORMERLY [facility] [id number] [place] 23:16:00 01:00:00 [facility] 2022-02-05 2022-02-05 Emergency [facility] [id number] [place] 23:32:16 23:55:28 [facility] 2022-02-05 2022-02-05 Emergency HERMES, [facility] [id number] [place] 21:30:24 21:41:51 [facility] 2022-02-04 2022-02-04 [facility] [id number] [place] 13:16:26 14:54:03 SUJOYEETA [facility] 2022-01-202022-01-20 Outpatient NORBERTOALI, [facility] [id number] [place] 08:08:28 09:07:11 [facility] 2022-01-20 2022-01-20 Outpatient [facility] [id number] [place] 08:40:24 08:55:12 [facility] 2022-01-20 2022-01-20 Outpatient [facility] [id number] [place] 00:00:00 00:00:00 [facility] 2022-01-20 2022-01-20 [facility] [id number] [place] 00:00:00 00:00:00 [facility] 2022-01-02 2022-01-02 Outpatient NATHALIEKATHRYN [facility] [id number] [place] 00:00:00 00:00:00 [facility] 2021-12-30 2021-12-30 [facility] [id number] [place] 09:12:55 10:28:29 [facility] 2021-12-30 2021-12-30 Outpatient [facility] [id number] [place] 09:43:20 09:55:06 [facility] 2021-12-30 2021-12-30 [facility] [id number] [place] 00:00:00 00:00:00 [facility] 2021-12-18 2021-12-18 Outpatient [facility] PRIV PRIV [id number] [facility] 11:17:00 11:17:00 _Diggs_R [id number] Medic al 2021-12-18 2021-12-18 Outpatient [facility] PRIV PRIV [id number] [facility] 11:17:00 11:17:00 _Diggs_R [id number] Medic al 2021-12-18 2021-12-18 Outpatient [facility] PRIV PRIV [id number] [facility] 11:17:00 11:17:00 _Diggs_R [id number] Medic al 2021-12-18 2021-12-18 Outpatient Longo, PRIV PRIV [id number] a-c 00:00:00 00:00:00 Kaycee [id number] 2021-12-18 2021-12-18 Kaycee [facility] 00:00:00 00:00:00 [facility] - Medic in NUTRITION COORDINATOR: [id number] _[facility] Gar _[facility] [address], [place] [address] , Ph. 2021-12-16 2021-12-16 Outpatient 3 PRESLEY PERAZA [facility] [id number] [place] 13:29:29 14:47:42 Health 2021-12-16 2021-12-16 Outpatient PERAZA, PRESLEY [facility] [id number] [place] 13:29:29 14:47:42 Health 2021-12-16 2021-12-16 Outpatient PERAZA, PRESLEY [facility] [id number]27 [place] 00:00:00 00:00:00 [facility] 2021-12-05 2021-12-05 [place] [id number] [facility] 09:34:18 23:59:00 Encounter Lazaro 06383.1.1 729 s t Peter 3.430.2.7 Hospit a .3.774865 l .8 2021-12-05 2021-12-05 Travel 1.2.840.1 [id number] [facility] 00:00:00 00:00:[address] 3.430.2.7 0.2.7.3.698 Ho spita .3.734552 084.8 l .8 2021-12-05 2021-12-05 Outpatient [facility] [id number] [address] [place] 00:00:00 00:00:00 [address] 2021-11-27 2021-11-27 Outpatient [facility] PRIV PRIV [id number] [facility] 01:52:00 01:52:00 _Phoenix_R [id number] Medic al 2021-11-27 2021-11-27 Travel 1.2.840.1 1.2.131.357 7522 [id number] [facility] 00:00:00 00:00:[address] 3.430.2.7 0.2.7.3.698 Ho spita .3.720568 084.8 l .8 2021-11-27 2021-11-27 Transcribe Donta, 1.2.840.1 [id number] 910 [id number] [facility] 00:00:00 00:00:00 Orders Kaycee Higgins [address]018.1.[address] 3.430.2.7 Hospit a .3.083748 l .8 2021-11-25 2021-11-25 Outpatient _[facility] PRIV PRIV [id number] [facility] 05:22:00 05:22:00 _Diggs_R [id number] Medic al 2021-11-25 2021-11-25 Outpatient [place] [id number] [place] 00:00:00 00:00:00 [facility] 2021-11-25 2021-11-25 [facility] 00:00[facility]00 00:00:[facility] NUTRITION COORDINATOR: [address], [address] [address] , Ph. 2021-11-25 2021-11-25 Outpatient Donta PRIV PRIV [id number] 0-a 00:00:00 00:00:00 Kaycee [id number]-a [id number] 2021-11-24 2021-11-24 Outpatient [facility] PRIV PRIV [id number] [facility] 09:14:00 09:14:00 _Diggs_R [id number] Medic al 2021-11-12 2021-11-12 Outpatient [facility] PRIV PRIV [id number] [facility] 10:32:00 10:32:00 _Diggs_R [id number] Medic al 2021-11-11 2021-11-11 Emergency RAMIREZ [facility] [id number] [place] 15:32:00 17:59:00 [facility] 2021-11-11 2021-11-11 [facility] [id number] [place] 09:22:13 10:07:10 [facility] 2021-11-11 2021-11-11 Outpatient [facility] [id number] [place] 09:43:27 09:47:12 [facility] 2021-11-11 2021-11-11 [facility] [id number] [place] 00:00:00 00:00:00 [facility] 2021-11-08 2021-11-09 Emergency Timur 1.2.840.1 [id number] [facility] 21:17:00 03:19:00 Gabriella damon 31700.1.1 [facility] 3.430.2.7 Hospit a .3.209267 l .8 2021-11-08 2021-11-09 Emergency NAHOMY GABRIELLA [place] [id number] [place] 00:00:00 00:00:00 991 Method i 2021-10-27 2021-10-27 [facility] [id number] [place] 15:38:32 16:13:58 [facility] 2021-10-27 2021-10-27 Outpatient [facility] [id number] [address] [place] [address] 15:28:33 15:53:26 [facility] 2021-10-27 2021-10-27 [facility] [id number] [place] 15:00:16 15:00:16 [facility] 2021-10-27 2021-10-27 [facility] [id number] [place] 00:00:00 00:00:00 [facility] 2021-10-27 2021-10-27 [facility] [id number] [place] 00:00:00 00:00:00 [facility] 2021-09-14 2021-09-14 Emergency AICHA COREAY [place] [id number] [place] 00:00:00 00:00:00 534 Method i 2021-08-22 2021-08-22 Emergency [facility]E [facility] [id number] [place] 00:00:00 00:00:00 CASH Jackson Method i 2021-07-22 2021-07-22 Outpatient [facility] [id number] [place] 00:00:00 00:00:00 [facility] 2021-07-17 2021-07-17 [facility] [id number] [place] 07:38:50 15:27:52 [facility] 2021-05-16 2021-05-16 Outpatient MARYANN, [facility] [id number] [place] 12:55:35 13:20:54 [facility] 2021-04-03 2021-04-03 Outpatient NORBERTOALI, [facility] [id number] [place] 10:24:01 11:40:13 [facility] 2021-04-03 2021-04-03 Outpatient FERNANDOZENOBIAALI, [facility] [id number] [place] 11:20:44 11:27:55 [facility] 2021-04-03 2021-04-03 Outpatient ABOZENOBIAALI, [facility] [id number] [place] 00:00:00 00:00:00 [facility] 2021-02-10 2021-02-10 Outpatient NORBERTOALI, [facility] [id number] [place] 07:38:38 14:43:22 [facility] 2021-01-20 2021-01-21 Emergency nullFlavo [facility] [id number] [place] 21:01:36 01:40:00 r [place] 00 [facility] 2021-01-20 2021-01-21 Emergency [facility] [id number] [place] 21:01:36 01:40:00 [facility] 00 [facility] 2021-01-20 2021-01-20 Outpatient Paul, [facility] [id number] 16:01:36 20:40:00 Domingo Guzman 00 2021-01-20 2021-01-20 Emergency E PAUL, [facility] [address] [facility] 16:01:00 20:40:00 DOMINGO 2021-01-20 2021-01-20 [facility] [id number] [place] 10:49:10 12:23:17 [facility] 2021-01-20 2021-01-20 Outpatient [facility] [id number] [place] 11:36:48 11:56:15 [facility] 2021-01-09 2021-01-09 [facility] [id number] [place] 11:01:40 13:18:27 [facility] 2021-01-02 2021-01-02 Emergency MARINO, [facility] [id number] [place] 00:00:00 00:00:00 MICHELLE [address] 2020-12-25 2020-12-25 Outpatient LARRY-YU [facility] [id number] [place] 00:00:00 00:00:00 Y, GÓMEZ [facility] 2020-12-25 2020-12-25 Outpatient GALVAN YING [facility] [id number] [place] 00:00:00 00:00:00 [facility] 2020-12-10 2020-12-10 Outpatient TATO CONNOLLY [facility] [id number] [place] 00:00:00 00:00:00 [facility] 2020-11-28 2020-11-28 Outpatient ABNER MORALES [facility] [id number] [place] 09:52:10 10:35:59 Health 2020-11-28 2020-11-28 [facility] [id number] [place] 08:52:57 09:35:01 [facility] 2020-11-28 2020-11-28 [facility] [id number] [place] 00:00:00 00:00:00 [facility] 2020-11-26 2020-11-26 Outpatient LARRY-YU [facility] [id number] [place] 10:26:31 12:37:58 Y, GÓMEZ [facility] 2020-11-26 2020-11-26 Outpatient LARRY-YU [facility] [id number] [place] 00:00:00 00:00:00 Y, GÓMEZ [facility] 2020-11-22 2020-11-22 [facility] [id number] [place] 09:06:46 09:06:46 [facility] 2020-11-21 2020-11-21 [facility] [id number] [place] 00:00:00 00:00:00 [facility] 2020-11-21 2020-11-21 [facility] [id number] [place] 00:00:00 00:00:00 [facility] 2020-11-18 2020-11-18 [facility] [id number] [place] 07:34:19 14:53:54 [facility] 2020-11-14 2020-11-14 [facility] [id number] [place] 00:00:00 00:00:00 [facility] 2020-11-12 2020-11-12 Outpatient WILLIAM, [facility] [id number] [place] 19:20:48 23:59:00 [facility] 2020-11-07 2020-11-07 Outpatient WILLIAM, [facility] [id number] [place] 10:15:36 16:17:47 [facility] 2020-11-07 2020-11-07 Outpatient MEGAN, [facility] [id number] [place] 00:00:00 00:00:00 [facility] 2020-11-06 2020-11-06 Outpatient ANDREW, [facility] [id number] [place] 09:10:44 09:31:28 [facility] 2020-11-06 2020-11-06 Outpatient ANDREW [facility] [id number] [place] 09:03:03 09:13:38 [facility] 2020-11-06 2020-11-06 Outpatient ANDREW [facility] [id number] [place] 00:00:00 00:00:00 [facility] 2020-11-06 2020-11-06 Outpatient JOAN, [facility] [id number] [place] 00:00:00 00:00:00 [facility] 2020-11-04 2020-11-04 Emergency ROLOFORMERLY [facility] [id number] [place] 07:18:00 08:55:00 NERY Roche 2020-10-31 2020-10-31 [facility] [id number] [place] 00:00:00 00:00:00 [facility] 2020-10-24 2020-10-24 [facility] [id number] [place] 08:03:09 08:03:09 [facility] 2020-10-23 2020-10-23 Outpatient LAKESHIA [facility] [id number] [place] 07:29:24 12:11:59 Y, GÓMEZ [facility] 2020-10-23 2020-10-23 Outpatient TORO, [facility] [id number] [place] 00:00:00 00:00:00 [facility] 2020-10-23 2020-10-23 Outpatient [facility] [id number] [place] 00:00:00 00:00:00 [facility] 2020-10-17 2020-10-17 [facility] [id number] [place] 00:00:00 00:00:00 [facility] 2020-10-10 2020-10-10 [facility] [id number] [place] 07:17:49 15:53:36 [facility] 2020-10-03 2020-10-03 [facility] [id number] [place] 07:29:37 07:29:37 [facility] 2020-09-26 2020-09-26 [facility] [id number] [place] 07:11:20 07:11:20 [facility] 2020-07-24 2020-07-24 [facility] [id number] [place] 00:00:00 00:00:00 [facility] 2020-01-25 2020-01-25 Emergency [facility] [id number] [place] 00:00:00 00:00:00 CASH 919 [facility] 2019-11-01 2019-11-01 Outpatient [facility] [id number] [place] 00:00:00 00:00:00 Health 2019-10-19 2019-10-19 Outpatient [facility] [id number] [place] 00:00:00 00:00:00 Health 2019-10-11 2019-10-11 Outpatient [facility] [id number] [place] 00:00:00 00:00:00 Health 2019-09-28 2019-09-28 Outpatient [facility] [id number] [place] 00:00:00 00:00:00 Health 2019-09-22 2019-09-22 Outpatient [facility] [id number] [place] 00:00:00 00:00:00 Health 2019-09-22 2019-09-22 Outpatient [facility] [id number] [place] 00:00:00 00:00:00 [facility] 2019-09-08 2019-09-08 Outpatient [facility] [id number] [place] 00:00:00 00:00:00 Health 2019-09-06 2019-09-06 Outpatient [facility] [id number] [place] 00:00:00 00:00:00 Health 2019-08-29 2019-08-29 Outpatient [facility] [id number] [place] 08:07:37 08:07:37 Health 2019-08-11 2019-08-11 Outpatient [facility] [id number] [place] 14:34:35 14:34:35 Health 2019-08-11 2019-08-11 Outpatient [facility] [id number] [place] 14:10:42 14:10:42 [facility] 2019-08-11 2019-08-11 Outpatient [facility] [id number] [place] 00:00:00 00:00:00 [facility] 2019-08-03 2019-08-03 Outpatient [facility] [id number] [place] 10:45:43 10:45:43 [facility] 2019-08-01 2019-08-01 Outpatient [facility] [id number] [place] 08:17:31 08:17:31 [facility] 2019-07-12 2019-07-12 Outpatient [facility] [id number] [place] 13:34:12 13:34:12 [facility] 2019-07-10 2019-07-10 Outpatient [facility] [id number] [place] 10:18:59 10:18:59 [facility] 2019-07-10 2019-07-10 Outpatient [facility] [id number] [place] 09:23:42 09:23:42 [facility] 2019-07-10 2019-07-10 Outpatient [facility] [id number] [place] 00:00:00 00:00:00 [facility] 2019-07-05 2019-07-05 Outpatient [facility] [id number] [place] 00:00:00 00:00:00 [facility] 2019-06-21 2019-06-21 Outpatient [facility] [id number] [place] 14:43:36 14:43:36 [facility] 2019-05-31 2019-05-31 Outpatient [facility] [id number] [place] 09:01:41 09:01:41 [facility] 2019-05-31 2019-05-31 Outpatient [facility] [id number] [place] 00:00:00 00:00:00 [facility] 2019-04-21 2019-04-21 Outpatient [facility] [id number] [place] 00:00:00 00:00:00 [facility] 2019-04-14 2019-04-14 Outpatient [facility] [id number] [place] 14:55:03 14:55:03 [facility] 2019-04-07 2019-04-07 Outpatient [facility] [id number] [place] 00:00:00 00:00:00 [facility] 2019-04-07 2019-04-07 Outpatient [facility] [id number] [place] 00:00:00 00:00:00 [facility] 2019-04-07 2019-04-07 Outpatient [facility] [id number] [place] 00:00:00 00:00:00 [facility] 2019-04-06 2019-04-06 Outpatient [facility] [id number] [place] 00:00:00 00:00:00 [facility] 2019-04-05 2019-04-05 Outpatient [facility] [id number] [place] 00:00:00 00:00:00 [facility] 2019-03-29 2019-03-29 Outpatient [facility] [id number] [place] 15:23:28 15:23:28 [facility] 2019-03-28 2019-03-28 Outpatient [facility] [id number] [place] 16:10:03 16:10:03 [facility] 2019-03-28 2019-03-28 Outpatient [facility] [id number] [place] 14:56:12 14:56:12 [facility] 2019-03-28 2019-03-28 Outpatient [facility] [id number] [place] 00:00:00 00:00:00 [facility] 2019-03-24 2019-03-24 Outpatient [facility] [id number] [place] 15:03:38 15:03:38 [facility] 2019-03-10 2019-03-10 Outpatient [facility] [id number] [place] 00:00:00 00:00:00 [facility] 2019-03-09 2019-03-09 Outpatient [facility] [id number] [place] 14:32:57 14:32:57 [facility] 2019-03-03 2019-03-03 Outpatient [facility] [id number] [place] 13:53:33 13:53:33 [facility] 2019-02-23 2019-02-23 Outpatient [facility] [id number] [place] 13:41:45 13:41:45 [facility] 2019-02-16 2019-02-16 Outpatient [facility] [id number] [place] 14:30:15 14:30:15 [facility] 2019-02-09 2019-02-09 Outpatient [facility] [id number] [place] 00:00:00 00:00:00 [facility] 2019-01-18 2019-01-18 Outpatient [facility] [id number] [place] 15:15:44 15:15:44 [facility] 2019-01-11 2019-01-11 Outpatient [facility] [id number] [place] 00:00:00 00:00:00 [facility] 2019-01-04 2019-01-04 Outpatient [facility] [id number] [place] 00:00:00 00:00:00 [facility] 2019-01-02 2019-01-02 Outpatient [facility] [id number] [place] 10:29:45 10:29:45 [facility] 2018-12-20 2018-12-20 Outpatient [facility] [id number] [place] 14:29:22 14:29:22 [facility] 2018-12-12 2018-12-12 Outpatient [facility] [id number] [place] 00:00:00 00:00:00 [facility] 2018-12-07 2018-12-07 Outpatient [facility] [id number] [place] 00:00:00 00:00:00 [facility] 2018-11-18 2018-11-18 Outpatient [facility] [id number] [place] 00:00:00 00:00:00 [facility] 2018-10-27 2018-10-27 Outpatient [facility] [id number] [place] 00:00:00 00:00:00 [facility] 2018-10-25 2018-10-25 Outpatient [facility] [id number] [place] 09:12:01 09:12:01 [facility] 2018-10-25 2018-10-25 Outpatient [facility] [id number] [place] 00:00:00 00:00:00 [facility] 2018-09-29 2018-09-29 Outpatient [facility] [id number] [place] 11:41:40 11:41:40 [facility] 2018-09-22 2018-09-22 Outpatient [facility] [id number] [place] 00:00:00 00:00:00 [facility] 2018-09-21 2018-09-21 Outpatient [facility] [id number] [place] 13:17:51 13:17:51 [facility] 2018-08-08 2018-08-08 Outpatient [facility] [id number] [place] 15:08:56 15:08:56 [facility] 2018-08-08 2018-08-08 Outpatient [facility] [id number] [place] 13:50:11 13:50:11 [facility] 2018-04-20 2018-04-20 Outpatient [facility] [id number] [place] 00:00:00 00:00:00 [facility] 2018-04-11 2018-04-11 Outpatient [facility] [id number] [place] 00:00:00 00:00:00 [facility] 2018-03-24 2018-03-24 Outpatient [facility] [id number] [place] 14:30:08 14:30:08 [facility] 2018-03-11 2018-03-11 Outpatient [facility] [id number] [place] 08:59:56 08:59:56 [facility] 2018-03-09 2018-03-09 Outpatient [facility] [id number] [place] 15:10:05 15:10:05 [facility] 2018-02-25 2018-02-25 Outpatient [facility] [id number] [place] 00:00:00 00:00:00 [facility] 2018-02-22 2018-02-22 Outpatient [facility] [id number] [place] 09:47:44 09:47:44 [facility] 2018-02-01 2018-02-01 Outpatient [facility] [id number] [place] 15:31:00 15:31:00 [facility] 2018-02-01 2018-02-01 Outpatient [facility] [id number] [place] 00:00:00 00:00:00 [facility] 2018-01-28 2018-01-28 Outpatient [facility] [id number] [place] 14:25:09 14:25:09 [facility] 2018-01-13 2018-01-13 Outpatient [facility] [id number] [place] 00:00:00 00:00:00 [facility] 2018-01-07 2018-01-07 Outpatient [facility] [id number] [place] 00:00:00 00:00:00 [facility] 2018-01-06 2018-01-06 Outpatient [facility] [id number] [place] 08:49:34 08:49:34 [facility] 2018-01-03 2018-01-03 Outpatient [facility] [id number] [place] 09:36:54 09:36:54 [facility] 2017-12-23 2017-12-23 Outpatient [facility] [id number] [place] 09:40:46 09:40:46 [facility] 2017-12-09 2017-12-09 Outpatient [facility] [id number] [place] 15:13:23 15:13:23 [facility] 2017-11-25 2017-11-25 Outpatient [facility] [id number] [place] 00:00:00 00:00:00 [facility] 2017-11-24 2017-11-24 Outpatient [facility] [id number] [place] 15:38:59 15:38:59 [facility] 2017-11-24 2017-11-24 Outpatient [facility] [id number] [place] 00:00:00 00:00:00 [facility] 2017-11-22 2017-11-22 Outpatient [facility] [id number] [place] 15:36:55 15:36:55 [facility] 2017-11-17 2017-11-17 Outpatient [facility] [id number] [place] 00:00:00 00:00:00 [facility] 2017-11-11 2017-11-11 Outpatient [facility] [id number] [place] 14:05:46 14:05:46 [facility] 2017-11-10 2017-11-10 Outpatient [facility] [id number] [place] 00:00:00 00:00:00 [facility] 2017-11-03 2017-11-03 Outpatient [facility] [id number] [place] 00:00:00 00:00:00 [facility] 2017-10-27 2017-10-27 Outpatient [facility] [id number] [place] 00:00:00 00:00:00 [facility] 2017-10-20 2017-10-20 Outpatient [facility] [id number] [place] 00:00:00 00:00:00 [facility] 2017-10-13 2017-10-13 Outpatient [facility] [id number] [place] 00:00:00 00:00:00 [facility] 2017-10-08 2017-10-08 Outpatient [facility] [id number] [place] 13:12:58 13:12:58 [facility] 2017-10-08 2017-10-08 Outpatient [facility] [id number] [place] 00:00:00 00:00:00 [facility] 2017-10-04 2017-10-04 Outpatient [facility] [id number] [place] 00:00:00 00:00:00 [facility] 2017-10-01 2017-10-01 Outpatient [facility] [id number] [place] 16:05:17 16:05:17 [facility] 2017-10-01 2017-10-01 Outpatient [facility] [id number] [place] 15:08:55 15:08:55 [facility] 2017-09-09 2017-09-09 Outpatient [facility] [id number] [place] 09:51:17 09:51:17 [facility] 2017-09-08 2017-09-08 Outpatient [facility] [id number] [place] 14:31:52 14:31:52 [facility] 2017-07-28 2017-07-28 Outpatient [facility] [id number] [place] 09:51:18 09:51:18 [facility] 2017-07-18 2017-07-18 Emergency [facility] [id number] [place] 14:53:14 14:53:14 [facility] 2017-07-18 2017-07-18 Inpatient [facility] [id number] [place] 12:13:57 12:13:57 [facility] 2017-07-07 2017-07-07 Outpatient [facility] [id number] [place] 14:50:08 14:50:08 [facility] 2017-06-11 2017-06-11 Outpatient [facility] [id number] [place] 13:28:35 13:28:35 [facility] 2017-06-10 2017-06-10 Outpatient [facility] [id number] [place] 15:39:29 15:39:29 [facility] 2017-06-08 2017-06-08 Outpatient [facility] [id number] [place] 13:05:47 13:05:47 [facility] 2017-06-04 2017-06-04 Outpatient [facility] [id number] [place] 12:40:45 12:40:45 [facility] 2017-06-03 2017-06-03 Outpatient [facility] [id number] [place] 00:00:00 00:00:00 [facility] 2017-06-01 2017-06-01 Outpatient [facility] [id number] [place] 12:36:26 12:36:26 [facility] 2017-05-14 2017-05-14 Outpatient [facility] [id number] [place] 08:24:03 08:24:03 [facility] 2017-05-14 2017-05-14 Outpatient [facility] [id number] [place] 07:23:07 07:23:07 [facility] 2017-04-30 2017-04-30 Outpatient [facility] [id number] [place] 00:00:00 00:00:00 [facility] 2017-04-26 2017-04-26 Outpatient [facility] [id number] [place] 00:00:00 00:00:00 [facility] 2017-04-14 2017-04-14 Outpatient [facility] [id number] [place] 10:24:05 10:24:05 [facility] 2017-04-08 2017-04-08 Outpatient [facility] [id number] [place] 00:00:00 00:00:00 [facility] 2017-04-07 2017-04-07 Outpatient [facility] [id number] [place] 14:24:22 14:24:22 [facility] 2017-04-02 2017-04-02 Outpatient [facility] [id number] [place] 00:00:00 00:00:00 [facility] 2017-03-30 2017-03-30 Outpatient [facility] [id number] [place] 00:00:00 00:00:00 [facility] 2017 2017 Outpatient [facility] [id number] [place] 11:11:06 11:11:06 [facility] 2017-03-12 2017-03-12 Outpatient [facility] [id number] [place] 13:12:40 13:12:40 [facility] 2017-02-19 2017-02-19 Outpatient [facility] [id number] [place] 00:00:00 00:00:00 [facility] 2017-02-03 2017-02-03 Outpatient [facility] [id number] [place] 14:38:51 14:38:51 [facility] 2017-01-18 2017-01-18 Outpatient [facility] [id number] [place] 00:00:00 00:00:00 [facility] 2017-01-13 2017-01-13 Outpatient [facility] [id number] [place] 00:00:00 00:00:00 [facility] 2016-12-30 2016-12-30 Outpatient [facility] [id number] [place] 08:21:55 08:21:55 [facility] 2016-12-28 2016-12-28 Outpatient [facility] [id number] [place] 13:12:13 13:12:13 [facility] 2016-12-16 2016-12-16 Outpatient [facility] [id number] [place] 12:31:42 12:31:42 [facility] 2016-12-14 2016-12-14 Outpatient [facility] [id number] [place] 00:00:00 00:00:00 [facility] 2016-11-30 2016-11-30 Outpatient [facility] [id number] [place] 13:19:09 13:19:09 [facility] 2016-11-26 2016-11-26 Outpatient [facility] [id number] [place] 13:39:33 13:39:33 [facility] 2016-11-26 2016-11-26 Outpatient [facility] [id number] [place] 13:37:06 13:37:06 [facility] 2016-11-23 2016-11-23 Outpatient [facility] [id number] [place] 13:27:22 13:27:22 [facility] 2016-11-16 2016-11-16 Outpatient [facility] [id number] [place] 08:29:28 08:29:28 [facility] 2016-11-06 2016-11-06 Outpatient [facility] [id number] [place] 14:10:51 14:10:51 [facility] 2016-10-13 2016-10-13 Outpatient [facility] [id number] [place] 11:00:58 11:00:58 [facility] 2016-10-08 2016-10-08 Outpatient [facility] [id number] [place] 12:56:54 12:56:54 [facility] 2016-10-08 2016-10-08 Outpatient [facility] [id number] [place] 12:49:38 12:49:38 [facility] 2016-10-07 2016-10-07 Outpatient [facility] [id number] [place] 15:36:29 15:36:29 [facility] 2016-10-07 2016-10-07 Outpatient [facility] [id number] [place] 14:16:34 14:16:34 [facility] 2016-09-30 2016-09-30 Outpatient [facility] [id number] [place] 09:07:30 09:07:30 [facility] 2016-09-11 2016-09-11 Outpatient [facility] [id number] [place] 11:28:30 11:28:30 [facility] 2016-08-22 2016-08-22 Emergency [facility] [id number] [place] 22:23:29 22:23:29 [facility] 2016-08-22 2016-08-22 Emergency [facility] [id number] [place] 19:44:23 19:44:23 Health 2016-08-22 2016-08-22 Emergency [facility] [id number] [place] 19:17:50 19:17:50 [facility] 2016-08-22 2016-08-22 Emergency [facility] [id number] [place] 19:15:09 19:15:09 [facility] 2015-09-18 2015-09-19 [facility] [id number] [place] 00:04:00 22:29:00 r Dav [address] [place] [address] 2015-09-18 2015-09-19 [facility] [id number] [place] 00:04:00 22:29:[address] [facility] 2015-09-17 2015-09-19 Outpatient Prudencio, SE [facility] [id number] 18:04:00 16:29:00 [place] [address] 2015-08-26 2015-08-26 [facility] [id number] [place] 16:33:00 22:17:00 Emergency r Dav 03 [facility] 2015-08-26 2015-08-26 [facility] [id number] [place] 16:33:00 22:17:00 Emergency r [place] 03 [facility] 2015-08-26 2015-08-26 Outpatient Riaz, MHSE [facility]SE [id number] 10:33:00 16:17:00 Natocaridad Cotao 2015-08-15 2015-08-16 [facility] [id number] [place] 11:50:00 22:33:[address] [facility] 2015-08-15 2015-08-16 [facility] [id number] [place] 11:50:00 22:33:[address] [facility] 2015-08-15 2015-08-16 Outpatient Tommy Del Toro SE [facility] [id number] 05:50:00 16:33:00 Clyde 02 2015-06-24 2015-07-24 [facility] [id number] [place] 20:15:00 05:59:00 Recurring r Dav 01 [facility] 2015-06-24 2015-07-24 [facility] [id number] [place] 20:15:00 05:59:00 Recurring r Dav 01 [facility] 2015-06-24 2015-07-23 Outpatient H[place] SE [id number] 15:15:00 23:59:00 Sam W 2015-06-24 2015-06-25 [facility] [id number] [place] 14:21:00 04:59:[address] [facility] 2015-06-24 2015-06-25 [facility] [id number] [place] 14:21:00 04:59:[address] [facility] 2015-06-24 2015-06-24 Outpatient Hakan MHSE [id number] 09:21:00 23:59:00 Sam W 2015-05-23 2015-06-22 [facility] [id number] [place] 15:41:00 04:59:00 Recurring r Dav 00 [facility] 2015-05-23 2015-06-22 [facility] [id number] [place] 15:41:00 04:59:00 Recurring r Dav 00 [facility] 2015-05-23 2015-06-21 Outpatient Hakan SE [id number] 10:41:00 23:59:00 Sam W 2015-06-10 2015-06-10 [facility] [id number] [place] 11:23:00 14:36:00 Out[address] Dav [address] [facility] 2015-06-10 2015-06-10 [facility] [id number] [place] 11:23:00 14:36:00 [address] Dav [address] [facility] 2015-06-10 2015-06-10 Outpatient [place] [id number] 06:23:00 09:36:00 Sam W 00 Results Test Description Test Time Test Comments Results Result Comments Source CARDI[facility] 2022-03-19 05:01:00 Test Item Value Reference Range Interpretation Comme nts HS Troponin I (test code = HS Troponin I) 5 [facility]2022-07-21 05:01:00 Test Item Value Reference Range Interpretation Comments Glucose Lvl (test code = Glucose Lvl) 96 70-99 [facility]2022-07-21 05:01:00 Test Item Value Reference Range Interpretation Comments BUN (test code = BUN) 16 7-22 [facility]2022-07-21 05:01:00 Test Item Value Reference Range Interpretation Comments Creatinine Lvl (test code = Creatinine 0.73 0.50-1.40 Lvl) [facility]2022-07-21 05:01:00 Test Item Value Reference Range Interpretation Comments Sodium Lvl (test code = Sodium Lvl) 141 135-145 [facility]2022-07-21 05:01:00 Test Item Value Reference Range Interpretation Comments Potassium Lvl (test code = Potassium 3.6 3.5-5.1 Lvl) [facility]2022-07-21 05:01:00 Test Item Value Reference Range Interpretation Comments Chloride Lvl (test code = Chloride Lvl) 110 95-109 [facility]2022-07-21 05:01:00 Test Item Value Reference Range Interpretation Comments CO2 (test code = CO2) 25 24-32 [facility]2022-07-21 05:01:00 Test Item Value Reference Range Interpretation Comments Calcium Lvl (test code = Calcium Lvl) 9.3 8.5-10.5 [facility]2022-07-21 05:01:00 Test Item Value Reference Range Interpretation Comments Total Protein (test code = Total 7.2 6.4-8.4 Protein) [facility]2022-07-21 05:01:00 Test Item Value Reference Range Interpretation Comments Albumin Lvl (test code = Albumin Lvl) 3.7 3.5-5.0 [facility]2022-07-21 05:01:00 Test Item Value Reference Range Interpretation Comments ALT (test code = ALT) 59 See_Comment [Auto mated message] The system which ge nerated this result transmit arvind reference range : <=65. The reference range was not used to interpr et this result as mario l/abnormal. [facility]2022-07-21 05:01:00 Test Item Value Reference Range Interpretation Comments AST (test code = AST) 24 See_Comment [Auto mated message] The system which ge nerated this result transmit arvind reference range : <=37. The reference range was not used to interpr et this result as mario l/abnormal. [place] 933472-07-21 05:01:00 Test Item Value Reference Range Interpretation Comments Alk Phos (test code = Alk Phos) 60 39-136 [place] 933472-07-21 05:01:00 Test Item Value Reference Range Interpretation Comments Bili Total (test code = Bili Total) 0.2 0.2-1.3 [place] 933472-07-21 05:01:00 Test Item Value Reference Range Interpretation Comments AGAP (test code = AGAP) 9.6 10.0-20.0 [place] 933472-07-21 05:01:00 Test Item Value Reference Range Interpretation Comments B/C Ratio (test code = B/C Ratio) 22 1 6-25 [place] 933472-07-21 05:01:00 Test Item Value Reference Range Interpretation Comments Globulin (test code = Globulin) 3.5 2.7-4.2 [place] 933472-07-21 05:01:00 Test Item Value Reference Range Interpretation Comments A/G Ratio (test code = A/G Ratio) 1.1 1 0.7-1.6 [place] 933472-07-21 05:01:00 Test Item Value Reference Range Interpretation Comments eGFR (test code = eGFR) 112 [facility]JE7861[facility]29 05:01:00 Test Item Value Reference Range Interpretation Comments WBC (test code = WBC) 6.4 3.7-10.4 [place] 121822-07-21 05:01:00 Test Item Value Reference Range Interpretation Comments RBC (test code = RBC) 5.28 4.20-5.40 [place] 121822-07-21 05:01:00 Test Item Value Reference Range Interpretation Comments Hgb (test code = Hgb) 14.1 12.0-16.0 [facility] CenterZemykdpQHZEWWZOEP7033-79-62 05:01:00 Test Item Value Reference Range Interpretation Comments Hct (test code = Hct) 43.0 36.0-48.0 [facility] CenterErxkenqVLBETPKAPF8239-01-12 05:01:00 Test Item Value Reference Range Interpretation Comments MCV (test code = MCV) 81.4 80.0-98.0 [facility] CenterXligunkQQYZNLIEIC8165-49-00 05:01:00 Test Item Value Reference Range Interpretation Comments MCH (test code = MCH) 26.7 pg 27.0-31.0 [facility] CenterTnvzcdlREAGZVKWSI6469-83-52 05:01:00 Test Item Value Reference Range Interpretation Comments MCHC (test code = MCHC) 32.9 32.0-36.0 [facility] CenterDkfolakSAZPHIOPFU7320-83-99 05:01:00 Test Item Value Reference Range Interpretation Comments RDW (test code = RDW) 14.1 11.5-14.5 [facility] CenterJqmsqicLMUYHKEBNO4632-20-84 05:01:00 Test Item Value Reference Range Interpretation Comments Platelet (test code = Platelet) 237 133-450 [facility] CenterQmcrkbnVDDDKTIHIM4940-89-37 05:01:00 Test Item Value Reference Range Interpretation Comments MPV (test code = MPV) 9.1 7.4-10.4 [facility] CenterKtbogzaACVHDCNCFW5200-05-45 05:01:00 Test Item Value Reference Range Interpretation Comments PT (test code = PT) 12.4 s 12.0-14.7 [facility] CenterFsdzvpbZCVNHTQVDV1745-85-27 05:01:00 Test Item Value Reference Range Interpretation Comments INR (test code = INR) 0.93 1 0.85-1.17 [facility] CenterDdvdklkAKDXIEVCDX1577-41-52 05:01:00 Test Item Value Reference Range Interpretation Comments PTT (test code = PTT) 26.5 s 22.9-35.8 [place] 121822-07-21 05:01:00 Test Item Value Reference Range Interpretation Comments Segs (test code = Segs) 40.0 45.0-75.0 [facility] CenterYfcovhqVVCXPGUOIF5132-97-37 05:01:00 Test Item Value Reference Range Interpretation Comments Lymphocytes (test code = Lymphocytes) 49.7 20.0-40.0 [place] 121822-07-21 05:01:00 Test Item Value Reference Range Interpretation Comments Monocytes (test code = Monocytes) 8.5 2.0-12.0 [facility] CenterXtvojwgPNLOFTHAVV7020-26-13 05:01:00 Test Item Value Reference Range Interpretation Comments Eosinophils (test code = 1.0 See_Comment [A utomated message] The Eosinophils) system which ge nerated this result tra nsmitted reference range : <=4.0. The reference r kat was not used to int erpret this result as normal/abnormal . [facility] CenterIzjaaybAEDXIWABDR3476-81-11 05:01:00 Test Item Value Reference Range Interpretation Comments Basophils (test code = 0.8 See_Comment [Aut omated message] The Basophils) system which ge nerated this result tra nsmitted reference range : <=1.0. The reference r kat was not used to int erpret this result as normal/abnormal . [facility] CenterHsicblyIKFKDZABNV4096-10-41 05:01:00 Test Item Value Reference Range Interpretation Comments Neutrophils # (test code = Neutrophils 2.5 1.5-8.1 #) [facility] CenterHnbxdcqAQSLHWKJPM1715-36-25 05:01:00 Test Item Value Reference Range Interpretation Comments Lymphocytes # (test code = Lymphocytes 3.2 1.0-5.5 #) [facility] CenterSxqxehyFHFDAEWKMG1462-59-08 05:01:00 Test Item Value Reference Range Interpretation Comments Monocytes # (test code 0.5 See_Comment [Aut omated message] The = Monocytes #) system which generated this result tra nsmitted reference range : <=0.8. The reference r kat was not used to int erpret this result as normal/abnormal . [facility] CenterPlwrdqjJFABIRWCXH7854-21-56 05:01:00 Test Item Value Reference Range Interpretation Comments Eosinophils # (test code 0.1 See_Comment [A utomated message] The = Eosinophils #) system whic h generated this result tra nsmitted reference range : <=0.5. The reference r kat was not used to int erpret this result as normal/abnormal . [facility] WVNGPER6343-52-25 05:01:00 Test Item Value Reference Range Interpretation Comments HS Troponin I (test code = HS Troponin 5 I) [facility]CHE[facility] PHTUU5101-18-13 05:01:00 Test Item Value Reference Range Interpretation Comments Glucose Lvl (test code = Glucose Lvl) 96 70-99 [place] 933472-07-21 05:01:00 Test Item Value Reference Range Interpretation Comments BUN (test code = BUN) 16 7-22 [place] 933472-07-21 05:01:00 Test Item Value Reference Range Interpretation Comments Creatinine Lvl (test code = Creatinine 0.73 0.50-1.40 Lvl) [place] 933472-07-21 05:01:00 Test Item Value Reference Range Interpretation Comments Sodium Lvl (test code = Sodium Lvl) 141 135-145 [place] 933472-07-21 05:01:00 Test Item Value Reference Range Interpretation Comments Potassium Lvl (test code = Potassium 3.6 3.5-5.1 Lvl) [place] 933472-07-21 05:01:00 Test Item Value Reference Range Interpretation Comments Chloride Lvl (test code = Chloride Lvl) 110 95-109 [place] 933472-07-21 05:01:00 Test Item Value Reference Range Interpretation Comments CO2 (test code = CO2) 25 24-32 [place] 933472-07-21 05:01:00 Test Item Value Reference Range Interpretation Comments Calcium Lvl (test code = Calcium Lvl) 9.3 8.5-10.5 [facility]2022-07-21 05:01:00 Test Item Value Reference Range Interpretation Comments Total Protein (test code = Total 7.2 6.4-8.4 Protein) [place] 933472-07-21 05:01:00 Test Item Value Reference Range Interpretation Comments Albumin Lvl (test code = Albumin Lvl) 3.7 3.5-5.0 [place] 933472-07-21 05:01:00 Test Item Value Reference Range Interpretation Comments ALT (test code = ALT) 59 See_Comment [Auto mated message] The system which ge nerated this result transmit arvind reference range : <=65. The reference range was not used to interpr et this result as mario l/abnormal. [place] 933472-07-21 05:01:00 Test Item Value Reference Range Interpretation Comments AST (test code = AST) 24 See_Comment [Auto mated message] The system which ge nerated this result transmit arvind reference range : <=37. The reference range was not used to interpr et this result as mario l/abnormal. [facility]2022-07-21 05:01:00 Test Item Value Reference Range Interpretation Comments Alk Phos (test code = Alk Phos) 60 39-136 [place] 933472-07-21 05:01:00 Test Item Value Reference Range Interpretation Comments Bili Total (test code = Bili Total) 0.2 0.2-1.3 [place] 933472-07-21 05:01:00 Test Item Value Reference Range Interpretation Comments AGAP (test code = AGAP) 9.6 10.0-20.0 [place] 933472-07-21 05:01:00 Test Item Value Reference Range Interpretation Comments B/C Ratio (test code = B/C Ratio) 22 1 6-25 [place] 933472-07-21 05:01:00 Test Item Value Reference Range Interpretation Comments Globulin (test code = Globulin) 3.5 2.7-4.2 [place] 933472-07-21 05:01:00 Test Item Value Reference Range Interpretation Comments A/G Ratio (test code = A/G Ratio) 1.1 1 0.7-1.6 [place] 933472-07-21 05:01:00 Test Item Value Reference Range Interpretation Comments eGFR (test code = eGFR) 112 [place] 121822-07-21 05:01:00 Test Item Value Reference Range Interpretation Comments WBC (test code = WBC) 6.4 3.7-10.4 [place] 121822-07-21 05:01:00 Test Item Value Reference Range Interpretation Comments RBC (test code = RBC) 5.28 4.20-5.40 [place] 121822-07-21 05:01:00 Test Item Value Reference Range Interpretation Comments Hgb (test code = Hgb) 14.1 12.0-16.0 [place] 121822-07-21 05:01:00 Test Item Value Reference Range Interpretation Comments Hct (test code = Hct) 43.0 36.0-48.0 [place] 121822-07-21 05:01:00 Test Item Value Reference Range Interpretation Comments MCV (test code = MCV) 81.4 80.0-98.0 [place] 121822-07-21 05:01:00 Test Item Value Reference Range Interpretation Comments MCH (test code = MCH) 26.7 pg 27.0-31.0 [place] 121822-07-21 05:01:00 Test Item Value Reference Range Interpretation Comments MCHC (test code = MCHC) 32.9 32.0-36.0 [facility] CenterKqcptvvCRDXDODRLG2662-56-94 05:01:00 Test Item Value Reference Range Interpretation Comments RDW (test code = RDW) 14.1 11.5-14.5 [place] 121822-07-21 05:01:00 Test Item Value Reference Range Interpretation Comments Platelet (test code = Platelet) 237 133-450 [facility] CenterGeegcemSQLQTPRQAP8495-01-96 05:01:00 Test Item Value Reference Range Interpretation Comments MPV (test code = MPV) 9.1 7.4-10.4 [facility] CenterJhvtnnzYBJDGXNRXH6443-76-34 05:01:00 Test Item Value Reference Range Interpretation Comments PT (test code = PT) 12.4 s 12.0-14.7 [facility] CenterXrpbyklDNJUDAUGHJ0025-37-00 05:01:00 Test Item Value Reference Range Interpretation Comments INR (test code = INR) 0.93 1 0.85-1.17 [facility] CenterMfkvozlGDLHLOCFBD4624-44-46 05:01:00 Test Item Value Reference Range Interpretation Comments PTT (test code = PTT) 26.5 s 22.9-35.8 [place] 121822-07-21 05:01:00 Test Item Value Reference Range Interpretation Comments Segs (test code = Segs) 40.0 45.0-75.0 [place] 121822-07-21 05:01:00 Test Item Value Reference Range Interpretation Comments Lymphocytes (test code = Lymphocytes) 49.7 20.0-40.0 [place] 121822-07-21 05:01:00 Test Item Value Reference Range Interpretation Comments Monocytes (test code = Monocytes) 8.5 2.0-12.0 [place] 121822-07-21 05:01:00 Test Item Value Reference Range Interpretation Comments Eosinophils (test code = 1.0 See_Comment [A utomated message] The Eosinophils) system which ge nerated this result tra nsmitted reference range : <=4.0. The reference r kat was not used to int erpret this result as normal/abnormal . [facility] CenterMzzjnggLGPLUGDLHQ7306-99-66 05:01:00 Test Item Value Reference Range Interpretation Comments Basophils (test code = 0.8 See_Comment [Aut omated message] The Basophils) system which ge nerated this result tra nsmitted reference range : <=1.0. The reference r kat was not used to int erpret this result as normal/abnormal . [facility] CenterZhiwtybSNTAPXKZDD5323-29-98 05:01:00 Test Item Value Reference Range Interpretation Comments Neutrophils # (test code = Neutrophils 2.5 1.5-8.1 #) [facility] CenterNlulicoLKSUOTZQTY4842-64-70 05:01:00 Test Item Value Reference Range Interpretation Comments Lymphocytes # (test code = Lymphocytes 3.2 1.0-5.5 #) [facility] CenterGotvlgzLURAYPAHKB9441-17-21 05:01:00 Test Item Value Reference Range Interpretation Comments Monocytes # (test code 0.5 See_Comment [Aut omated message] The = Monocytes #) system which generated this result tra nsmitted reference range : <=0.8. The reference r kat was not used to int erpret this result as normal/abnormal . [facility] CenterTzcpfnsOJGJIDJDJA6491-29-56 05:01:00 Test Item Value Reference Range Interpretation Comments Eosinophils # (test code 0.1 See_Comment [A utomated message] The = Eosinophils #) system ic h generated this result tra nsmitted reference range : <=0.5. The reference r kat was not used to int erpret this result as normal/abnormal . [facility]YL[facility]392[facility]80 02:18:00 Test Item Value Reference Range Interpretation Comments Coronavirus (COVID-19) Detected MARLYN (test code = 1*ABN*(03/13/22 9:18 Coronavirus (COVID-19) PM) MARLYN) [facility]PkueymhMQGMICBEVK2590-56-95 02:18:00 Test Item Value Reference Range Interpretation Comments Coronavirus (COVID-19) Detected MARLYN (test code = 1*ABN*(03/13/22 9:18 Coronavirus (COVID-19) PM) MARLYN) [facility]l MARLYN+oepmm4768-50-69 03:21:53 Test Item Value Reference Range Interpretation Comments Symptomatic as defined by CDC? (test code = 37900-2) Employed in No Healthcare? (test code = 20730-2) Resident in a No congregate care setting (including nursing homes, residential care for people with intellectual and developmental disabilities, psychiatric treatment facilities, group homes, board and care homes, homeless nursing home, foster care or other): (test code = 99344-4) ? (test code = No 55002-7) SARS-CoV-2 RNA Nph Ql NOT DETECTED Not Detected The novel MARLYN+probe (test code = coron avirus 86151-7) (SARS-CoV-2) ta rget nucleic acids a re not detected. COMMENT: The [employer] SARS-CoV-2 real-time RT-PCR based diagnostic test intended for the qualitative detection of SARS-CoV-2 viral RNA in a nasopharyngeal swab during acute phase of infection. This test was developed and its performance characteristics have been determined by the [facility]. This test has not been cleared or approved by the FDA. This testsystem has been authorized by the FDA under an Emergency Use Authorization (EUA). This test has beenvalidated in accordance with the FDA\\BA99435\\s Guidance document \\XW0336R\\Policy for Coronavirus Disease-2019 Tests During the Public Health Emergency\\VZ7173E\\ (Revised December 2019) and is used for clinical purposes. It should not be regarded as investigational or for research\\NJ0762X\\Detected\\LF2760S\\ results are indicative of the presence of the identified virus, but do not rule out bacterial infection or co-infection with other pathogens not detected by the test. Clinical correlation with patient his tory and other diagnostic information is necessary to determine patient infection status. \\DZ2615Q\\Not Detected\\DU0510O\\ results do not preclude SARS-CoV-2 and should not be used as the sole basis for treatment or other patient management decisions. Negative results must be combined with clinical observations, patient history, and/or epidemiological information.This laboratory is certified under the Clinical Laboratory Improvement Amendments (CLIA) as qualified to perform high complexity clinical laboratory testing.[facility] SARS-CoV-2 ORF1ab Resp Ql MARLYN+vdzey6988-07-35 01:19:53 Test Item Value Reference Range Interpretation Comments Symptomatic as defined No by CDC? (test code = 22229-7) Hospitalized? (test No code = 68961-1) ICU? (test code = No 51524-8) Employed in No Healthcare? (test code = 63458-3) Resident in a No congregate care setting (including nursing homes, residential care for people with intellectual and developmental disabilities, psychiatric treatment facilities, group homes, board and care homes, homeless nursing home, foster care or other): (test code = 18452-5) ? (test code = No 84968-9) SARS-CoV-2 ORF1ab Resp NOT DETECTED Not Detected INTER PRETATION: No Ql MARLYN+probe (test detectabl e levels code = 37501-8) of SARS-CoV- 2 Coronavirus (COVID-19) were present in this patient's sampl e by this test. A no t detected result does not exclud e the possibility of active infectio n with this virus due to other factor s that may affect the results such as a poorly collecte d sample, viral titers below th e limit of detect ion of the assay, a nd the infrequent possibility of inhibitors in t he sample. This re sult should be interpreted in conjunction wit h clinical, radiographic, a nd other laborator y findings and sh ould not be used as the sole indicator of active infectio n with SARS-CoV-2 Coronavirus (COVID-19). COMMENT: This [employer] SARS-CoV-2 molecular diagnostic assay utilizes [employer] Mediated Amplification (TMA) technology to rapidly detect the SARS-CoV-2 (COVID-19) virus from respiratory samples. In accordance with the FDA's guidance document "Policy for Diagnostic Tests for Coronavirus Disease- 2019 during the Public Health Emergency", this test was developed, and its performance characteristics were verified by the [facility] molecular diagnostics laboratory and is authorized for clinical diagnostic use. This laboratory is certified under the Clinical Laboratory Improvement Amendments (CLIA) as qualified to perform high complexity clinical laboratory testing.HHSvon Willebrand factor (vWf) Ag [Units/volume] in Platelet poor plasma 2021-12-05 00:00:00 Test Item Value Reference Range Interpretation Comments vwf antigen (test code = vwf antigen) 94 [facility] factor VIII activity actual/normal in Platelet poor plasma by Coagulation [id number] 00:00:00 Test Item Value Reference Range Interpretation Comments fact. VIII act. (test code = fact. VIII 106 act.) [facility] Medicalvon Willebrand factor (vWf).activity [Units/volume] in Platelet poor plasma by Zqffvsxouiz3379-51-84 00:00:00 Test Item Value Reference Range Interpretation Comments ristocetin cofactor (test code = 57 ristocetin cofactor) [facility] MedicalaPTT in Platelet poor plasma by Coagulation [id number] 00:00:00 Test Item Value Reference Range Interpretation Comments PTT (test code = PTT) 28.5 sec 23.6-31.6 [facility] MedicalAndrostenedione [Mass/volume] in Serum or [id number] 00:00:00 Test Item Value Reference Range Interpretation Comments androstenedione (1) (test code = 20 NG/dL androstenedione (1)) [facility] MedicalPT/[id number] 00:00:00 Test Item Value Reference Range Interpretation Comments INR (test code = INR) 0.96 0.80-1.06 PT (test code = PT) 10.9 sec 9.1-11.9 [facility] Wvbvppm19-Rcspslofurtvxuwzvqt [Mass/volume] in Serum or Zxypld3760-49-87 00:00:00 Test Item Value Reference Range Interpretation Comments 17-hydroxyprogesterone (test code = <10 see below 17-hydroxyprogesterone) [facility] MedicalaPTT in Blood by Coagulation [id number] 00:00:00 Test Item Value Reference Range Interpretation Comments P.T.T. (test code = P.T.T.) 30.9 [facility] MedicalChlamydia trachomatis and Neisseria gonorrhoeae rRNA panel - Specimen by MARLYN with probe [id number] 00:00:00 Test Item Value Reference Range Interpretation Comments aptima combo 2 swab (CT) (test code = CT neg negative aptima combo 2 swab (CT)) aptima combo 2 swab (GC) (test code = GC neg negative aptima combo 2 swab (GC)) [facility] Medical[facility]ima swab vaginitis 2021-11-26 00:00:00 Test Item Value Reference Range Interpretation Comments bacterial vaginosis (test code = bv neg negative bacterial vaginosis) warner species (test code = C. spp neg negative warner species) warner glabrata (test code = C. gla neg negative warner glabrata) trichomonas vaginalis (CV/TV) trich pos negative A (test code = trichomonas vaginalis (CV/TV)) [facility] panel - Blood by Automated [id number] 00:00:00 Test Item Value Reference Range Interpretation Comments WBC (test code = WBC) 7.5 10 3.7-12.0 RBC (test code = RBC) 4.95 10 3.60-5.50 HGB (test code = HGB) 12.9 g/dL 11.5-15.6 HCT (test code = HCT) 40.1 % 34.5-46.5 MCV (test code = MCV) 81.0 um 80.0-102.0 MCH (test code = MCH) 26.1 pg 25.0-34.1 MCHC (test code = MCHC) 32.2 g/dL 29.0-35.0 RDW (test code = RDW) 18.2 % 10.9-16.9 H plt (test code = plt) 232 10 136-392 MPV (test code = MPV) 10.2 um 7.4-11.1 gran % (test code = gran %) 66.6 % 36.0-78.0 lymph % (test code = lymph %) 23.9 % 12.0-48.0 mono % (test code = mono %) 6.5 % 0.0-13.0 eos % (test code = eos %) 3 % 0-8 baso % (test code = baso %) 0 % 0-2 gran # (test code = gran #) 5.0 10 1.2-6.8 lymph # (test code = lymph #) 1.8 10 1.2-3.2 mono # (test code = mono #) 0.5 10 0.3-0.8 eos # (test code = eos #) 0.2 10 0.0-0.2 baso # (test code = baso #) 0.0 10 0.0-0.2 [facility]Units/volume] in Serum or [id number] 00:00:00 Test Item Value Reference Range Interpretation Comments TSH (test code = TSH) 2.010 uIU/mL 0.178-4.530 [facility]Com[facility] 2000 panel - Serum or Gpwpug2683-08-06 00:00:00 Test Item Value Reference Range Interpretation Comments sodium (test code = 140 mmol/L 136-145 sodium) potassium (test code = 4.5 mmol/L 3.5-5.5 potassium) chloride (test code = 108 mmol/L 98-107 H chloride) CO2 (test code = CO2) 20 mmol/ L 23-27 L glucose (test code = 76 mg/dL 70-99 glucose) BUN (test code = BUN) 17 mg/dL 6-20 creatinine (test code = 0.7 mg/dL 0.5-0.9 creatinine) calcium (test code = 9.3 mg/dL 8.8-10.6 calcium) total protein (test code = 6.1 g/dL 6.0-8.3 total protein) albumin (test code = 4.1 g/dL 3.5-5.2 albumin) total bilirubin (test code 0.1 mg/dL 0.0-1.2 = total bilirubin) alkaline phosphatase (test 69 U/L 44-147 code = alkaline phosphatase) AST (SGOT) (test code = 18 U/L 0-32 AST (SGOT)) ALT (SGPT) (test code = 23 U/L 0-33 ALT (SGPT)) globulin (test code = 2.0 g/dL 1.7-3.7 globulin) A/G ratio (test code = A/G 2.1 calc. 1.1-2.9 ratio) BUN/creatinine ratio (test 24.3 calc 10.0-28.0 code = BUN/creatinine ratio) eGFR non- 103.735 >60.000 (test code = eGFR mL/min/1.73A? non-) eGFR 124.483 >60.000 (test code = eGFR mL/min/1.73A? omani) [facility] MedicalTestosterone [Mass/volume] in Serum or [id number] 00:00:00 Test Item Value Reference Range Interpretation Comments testosterone (test code = testosterone) < 2.5 8.4-48.1 L [facility] MedicalDehydroepiandrosterone sulfate (DHEA-S) [Mass/volume] in Serum or [id number] 00:00:00 Test Item Value Reference Range Interpretation Comments DHEA-S (test code = DHEA-S) 43.1 ug/dL 98.8-340.0 L [facility] HospitalFollitropin and Lutropin panel [Units/volume] - Serum or Plasma 2021-11-26 00:00:00 Test Item Value Reference Range Interpretation Comments LH (test code = LH) 2.9 mIU/mL FSH (test code = FSH) 6.8 mIU/mL [facility] HospitalProlactin [Mass/volume] in Serum or Odjsjc1412-06-46 00:00:00 Test Item Value Reference Range Interpretation Comments prolactin (test code = prolactin) 115.0 NG/mL 4.8-23.3 H [facility] HospitalLipid 1996 panel - Serum or [id number] 00:00:00 Test Item Value Reference Range Interpretation Comments cholesterol (test code = 197 mg/dL 0-200 cholesterol) triglycerides (test code = 168 mg/dL 10-150 H triglycerides) HDL cholesterol (test code = HDL 50 mg/dL >50 cholesterol) HDL risk factor (test code = HDL 3.9 calc. risk factor) VLDL cholesterol (test code = VLDL 34 calc cholesterol) Cholesterol in LDL [Mass/volume] in 115 mg/dL <100 H Serum or Plasma (test code = 2089-1) [facility] SpaciousSTI [id number] 00:00:00 Test Item Value Reference Range Interpretation Comments HPV thinprep (test code = HPV negative negative thinprep) [facility], [id number] 00:00:00 Test Item Value Reference Range Interpretation Comments LMP date: (test code = 09/09/2021 LMP date:) Pap, liquid-based nilm nilm (test code = Pap, liquid-based) source (liquid-based cervical (which cytology): (test code includes endocervical) = source (liquid-based cytology):) [facility] KidzCHEM [id number] 21:13:00 Test Item Value Reference Range Interpretation Comments Glucose Lvl (test code = Glucose Lvl) 89 70-99 [facility] [id number] 21:13:00 Test Item Value Reference Range Interpretation Comments BUN (test code = BUN) 8 7-22 [facility]2021-05-24 21:13:00 Test Item Value Reference Range Interpretation Comments Creatinine Lvl (test code = Creatinine 0.55 0.50-1.40 Lvl) [facility]2021-05-24 21:13:00 Test Item Value Reference Range Interpretation Comments Sodium Lvl (test code = Sodium Lvl) 140 135-145 [place] [id number] 21:13:00 Test Item Value Reference Range Interpretation Comments Potassium Lvl (test code = Potassium 3.5 3.5-5.1 Lvl) [facility]2021-05-24 21:13:00 Test Item Value Reference Range Interpretation Comments Chloride Lvl (test code = Chloride Lvl) 109 95-109 [facility]2021-05-24 21:13:00 Test Item Value Reference Range Interpretation Comments CO2 (test code = CO2) 27 24-32 [place] 933471-05-24 21:13:00 Test Item Value Reference Range Interpretation Comments Calcium Lvl (test code = Calcium Lvl) 9.0 8.5-10.5 [facility]2021-05-24 21:13:00 Test Item Value Reference Range Interpretation Comments AGAP (test code = AGAP) 7.5 10.0-20.0 [facility]2021-05-24 21:13:00 Test Item Value Reference Range Interpretation Comments eGFR (test code = eGFR) 126 [facility]2021-05-24 21:13:00 Test Item Value Reference Range Interpretation Comments Lactic Acid Lvl (test code = Lactic 0.6 0.5-2.2 Acid Lvl) [facility]RvbzfcbGMVHRKQMGKKIQ8888-36-14 21:13:00 Test Item Value Reference Range Interpretation Comments hCG Tot (test code = hCG Tot) no gt [facility] CenterPbmprmoRGWYJGFKIK2483-97-40 21:13:00 Test Item Value Reference Range Interpretation Comments WBC X 10x3 (test code = WBC X 10x3) 7.9 3.7-10.4 [facility] CenterCakzlusACTNTUICMA7467-24-06 21:13:00 Test Item Value Reference Range Interpretation Comments RBC X 10x6 (test code = RBC X 10x6) 4.80 4.20-5.40 [facility] CenterUmkpjrlKWUSPAGJTX1360-13-77 21:13:00 Test Item Value Reference Range Interpretation Comments Hgb (test code = Hgb) 12.4 12.0-16.0 [facility] CenterVzvheqyJOSVLHRANW0172-06-36 21:13:00 Test Item Value Reference Range Interpretation Comments Hct (test code = Hct) 37.9 36.0-48.0 [place] 121821-05-24 21:13:00 Test Item Value Reference Range Interpretation Comments MCV (test code = MCV) 78.9 80.0-98.0 [place] 121821-05-24 21:13:00 Test Item Value Reference Range Interpretation Comments MCH (test code = MCH) 25.7 pg 27.0-31.0 [facility] CenterGvvtsnkOHWOSMWPGO0878-97-64 21:13:00 Test Item Value Reference Range Interpretation Comments MCHC (test code = MCHC) 32.6 32.0-36.0 [facility] CenterMwqvxpdNOYDATVNRE9157-70-60 21:13:00 Test Item Value Reference Range Interpretation Comments RDW (test code = RDW) 15.5 11.5-14.5 [facility] CenterRpftvulEKULHGEINU6903-14-22 21:13:00 Test Item Value Reference Range Interpretation Comments Platelet (test code = Platelet) 243 133-450 [facility] CenterEeqfpgqCLLJCGOSUU9054-63-87 21:13:00 Test Item Value Reference Range Interpretation Comments MPV (test code = MPV) 9.4 7.4-10.4 [place] 121821-05-24 21:13:00 Test Item Value Reference Range Interpretation Comments Segs (test code = Segs) 56.1 45.0-75.0 [place] 121821-05-24 21:13:00 Test Item Value Reference Range Interpretation Comments Lymphocytes (test code = Lymphocytes) 32.2 20.0-40.0 [place] 121821-05-24 21:13:00 Test Item Value Reference Range Interpretation Comments Monocytes (test code = Monocytes) 9.1 2.0-12.0 [place] 121821-05-24 21:13:00 Test Item Value Reference Range Interpretation Comments Eosinophils (test code = 2.2 See_Comment [A utomated message] The Eosinophils) system which ge nerated this result tra nsmitted reference range : <=4.0. The reference r kat was not used to int erpret this result as normal/abnormal . [place] 121821-05-24 21:13:00 Test Item Value Reference Range Interpretation Comments Basophils (test code = 0.4 See_Comment [Aut omated message] The Basophils) system which ge nerated this result tra nsmitted reference range : <=1.0. The reference r kat was not used to int erpret this result as normal/abnormal . [place] 121821-05-24 21:13:00 Test Item Value Reference Range Interpretation Comments Neutrophils # (test code = Neutrophils 4.4 1.5-8.1 #) [place] 121821-05-24 21:13:00 Test Item Value Reference Range Interpretation Comments Lymphocytes # (test code = Lymphocytes 2.5 1.0-5.5 #) [place] 121821-05-24 21:13:00 Test Item Value Reference Range Interpretation Comments Monocytes # (test code 0.7 See_Comment [Aut omated message] The = Monocytes #) system which generated this result tra nsmitted reference range : <=0.8. The reference r kat was not used to int erpret this result as normal/abnormal . [place] 121821-05-24 21:13:00 Test Item Value Reference Range Interpretation Comments Eosinophils # (test code 0.2 See_Comment [A utomated message] The = Eosinophils #) system whic h generated this result tra nsmitted reference range : <=0.5. The reference r kat was not used to int erpret this result as normal/abnormal . [place] 121821-05-24 21:13:00 Test Item Value Reference Range Interpretation Comments Microcyte (test code = 1+ *ABN*(01/20/21 Microcyte) 4:13 PM) [place] 933471-05-24 21:13:00 Test Item Value Reference Range Interpretation Comments Glucose Lvl (test code = Glucose Lvl) 89 70-99 [place] 933471-05-24 21:13:00 Test Item Value Reference Range Interpretation Comments BUN (test code = BUN) 8 7-22 [place] 933471-05-24 21:13:00 Test Item Value Reference Range Interpretation Comments Creatinine Lvl (test code = Creatinine 0.55 0.50-1.40 Lvl) [facility]2021-05-24 21:13:00 Test Item Value Reference Range Interpretation Comments Sodium Lvl (test code = Sodium Lvl) 140 135-145 [place] 933471-05-24 21:13:00 Test Item Value Reference Range Interpretation Comments Potassium Lvl (test code = Potassium 3.5 3.5-5.1 Lvl) [facility]2021-05-24 21:13:00 Test Item Value Reference Range Interpretation Comments Chloride Lvl (test code = Chloride Lvl) 109 95-109 [place] 933471-05-24 21:13:00 Test Item Value Reference Range Interpretation Comments CO2 (test code = CO2) 27 24-32 [place] 933471-05-24 21:13:00 Test Item Value Reference Range Interpretation Comments Calcium Lvl (test code = Calcium Lvl) 9.0 8.5-10.5 [facility]2021-05-24 21:13:00 Test Item Value Reference Range Interpretation Comments AGAP (test code = AGAP) 7.5 10.0-20.0 [facility]2021-05-24 21:13:00 Test Item Value Reference Range Interpretation Comments eGFR (test code = eGFR) 126 [facility]2021-05-24 21:13:00 Test Item Value Reference Range Interpretation Comments Lactic Acid Lvl (test code = Lactic 0.6 0.5-2.2 Acid Lvl) [place] 41383021-05-24 21:13:00 Test Item Value Reference Range Interpretation Comments hCG Tot (test code = hCG Tot) no gt [facility] CenterBrfmheoMGNUDCFWDO8872-69-28 21:13:00 Test Item Value Reference Range Interpretation Comments WBC X 10x3 (test code = WBC X 10x3) 7.9 3.7-10.4 [facility] CenterNkdswbfETMDSOFTAG0689-99-63 21:13:00 Test Item Value Reference Range Interpretation Comments RBC X 10x6 (test code = RBC X 10x6) 4.80 4.20-5.40 [place] 121821-05-24 21:13:00 Test Item Value Reference Range Interpretation Comments Hgb (test code = Hgb) 12.4 12.0-16.0 [facility] CenterZleaeblFPJWRZUZUM0208-63-70 21:13:00 Test Item Value Reference Range Interpretation Comments Hct (test code = Hct) 37.9 36.0-48.0 [place] 121821-05-24 21:13:00 Test Item Value Reference Range Interpretation Comments MCV (test code = MCV) 78.9 80.0-98.0 [place] [address]-05-24 21:13:00 Test Item Value Reference Range Interpretation Comments MCH (test code = MCH) 25.7 pg 27.0-31.0 [place] 121821-05-24 21:13:00 Test Item Value Reference Range Interpretation Comments MCHC (test code = MCHC) 32.6 32.0-36.0 [place] 121821-05-24 21:13:00 Test Item Value Reference Range Interpretation Comments RDW (test code = RDW) 15.5 11.5-14.5 [place] 121821-05-24 21:13:00 Test Item Value Reference Range Interpretation Comments Platelet (test code = Platelet) 243 133-450 [facility] CenterJcxuvshOACQVCKDKS1052-82-09 21:13:00 Test Item Value Reference Range Interpretation Comments MPV (test code = MPV) 9.4 7.4-10.4 [place] 121821-05-24 21:13:00 Test Item Value Reference Range Interpretation Comments Segs (test code = Segs) 56.1 45.0-75.0 [place] [address]-05-24 21:13:00 Test Item Value Reference Range Interpretation Comments Lymphocytes (test code = Lymphocytes) 32.2 20.0-40.0 [place] [address]-05-24 21:13:00 Test Item Value Reference Range Interpretation Comments Monocytes (test code = Monocytes) 9.1 2.0-12.0 [place] [address]-05-24 21:13:00 Test Item Value Reference Range Interpretation Comments Eosinophils (test code = 2.2 See_Comment [A utomated message] The Eosinophils) system which ge nerated this result tra nsmitted reference range : <=4.0. The reference r kat was not used to int erpret this result as normal/abnormal . [facility] CenterKbksdhiQOIESEZGBY5030-34-55 21:13:00 Test Item Value Reference Range Interpretation Comments Basophils (test code = 0.4 See_Comment [Aut omated message] The Basophils) system which ge nerated this result tra nsmitted reference range : <=1.0. The reference r kat was not used to int erpret this result as normal/abnormal . [facility] CenterVmyqbrlDUNCGHMZHF4426-49-76 21:13:00 Test Item Value Reference Range Interpretation Comments Neutrophils # (test code = Neutrophils 4.4 1.5-8.1 #) [facility] CenterFyvmsedJXHNSHCEAJ6866-78-13 21:13:00 Test Item Value Reference Range Interpretation Comments Lymphocytes # (test code = Lymphocytes 2.5 1.0-5.5 #) [facility] CenterHaozxriIMGAZEZDHW3350-18-31 21:13:00 Test Item Value Reference Range Interpretation Comments Monocytes # (test code 0.7 See_Comment [Aut omated message] The = Monocytes #) system which generated this result tra nsmitted reference range : <=0.8. The reference r kat was not used to int erpret this result as normal/abnormal . [facility] CenterYmrmubrUPHNPUEHBF3788-39-31 21:13:00 Test Item Value Reference Range Interpretation Comments Eosinophils # (test code 0.2 See_Comment [A utomated message] The = Eosinophils #) system whic h generated this result tra nsmitted reference range : <=0.5. The reference r kat was not used to int erpret this result as normal/abnormal . [facility] CenterFfevlltGJGFNDIHJV3673-77-74 21:13:00 Test Item Value Reference Range Interpretation Comments Microcyte (test code = 1+ *ABN*(01/20/21 Microcyte) 4:13 PM) [facility] JCLAU0608-92-33 13:03:00 Test Item Value Reference Range Interpretation Comments Magnesium Lvl (test code = Magnesium 1.9 1.8-2.4 Lvl) [facility] DAWKD3751-89-41 13:03:00 Test Item Value Reference Range Interpretation Comments eGFR (test code = eGFR) 127 [facility]MeinPro[facility] ZVALC8326-93-49 13:03:00 Test Item Value Reference Range Interpretation Comments Creatinine Lvl (test code = Creatinine 0.60 0.50-1.40 Lvl) [facility]2016-01-21 13:03:00 Test Item Value Reference Range Interpretation Comments Glucose Lvl (test code = Glucose Lvl) 82 70-99 [facility]2016-01-21 13:03:00 Test Item Value Reference Range Interpretation Comments BUN (test code = BUN) 7 7-22 [facility]2016-01-21 13:03:00 Test Item Value Reference Range Interpretation Comments Potassium Lvl (test code = Potassium 4.1 3.5-5.1 Lvl) [facility]2016-01-21 13:03:00 Test Item Value Reference Range Interpretation Comments Sodium Lvl (test code = Sodium Lvl) 141 135-145 [facility]2016-01-21 13:03:00 Test Item Value Reference Range Interpretation Comments Chloride Lvl (test code = Chloride Lvl) 108 95-109 [facility]2016-01-21 13:03:00 Test Item Value Reference Range Interpretation Comments CO2 (test code = CO2) 20 24-32 [facility]2016-01-21 13:03:00 Test Item Value Reference Range Interpretation Comments Calcium Lvl (test code = Calcium Lvl) 8.9 8.5-10.5 [facility]2016-01-21 13:03:00 Test Item Value Reference Range Interpretation Comments AGAP (test code = AGAP) 17.1 10.0-20.0 [facility] CenterZlnhkafQQWEECNVKP4962-45-97 13:03:00 Test Item Value Reference Range Interpretation Comments Lymphocytes # (test code = Lymphocytes 2.3 1.0-5.5 #) [facility] CenterYfnjyheQBFYPIRNPX9524-08-34 13:03:00 Test Item Value Reference Range Interpretation Comments Basophils (test code = 1.0 See_Comment [Aut omated message] The Basophils) system which ge nerated this result tra nsmitted reference range : <=1.0. The reference r kat was not used to int erpret this result as normal/abnormal . [facility] CenterEwwegpyOFKPQYBTFV6559-66-28 13:03:00 Test Item Value Reference Range Interpretation Comments Segs-Bands # (test code = Segs-Bands #) 3.3 1.5-8.1 [facility] CenterDkjsdykFLNNOKNYMH9912-65-33 13:03:00 Test Item Value Reference Range Interpretation Comments Eosinophils (test code = 2.5 See_Comment [A utomated message] The Eosinophils) system which ge nerated this result tra nsmitted reference range : <=4.0. The reference r kat was not used to int erpret this result as normal/abnormal . [facility] CenterPmwdkskRRDPQPTPDS3942-38-96 13:03:00 Test Item Value Reference Range Interpretation Comments Eosinophils # (test code 0.2 See_Comment [A utomated message] The = Eosinophils #) system whic h generated this result tra nsmitted reference range : <=0.5. The reference r kat was not used to int erpret this result as normal/abnormal . [facility] CenterBmrzbzcURYMWLQJCZ9324-28-21 13:03:00 Test Item Value Reference Range Interpretation Comments Monocytes # (test code 0.7 See_Comment [Aut omated message] The = Monocytes #) system which generated this result tra nsmitted reference range : <=0.8. The reference r kat was not used to int erpret this result as normal/abnormal . [facility] CenterFqhwalpREZTKXGBHI6373-04-57 13:03:00 Test Item Value Reference Range Interpretation Comments Microcyte (test code = 1+ *ABN*(09/19/15 Microcyte) 7:03 AM) [facility] CenterTgckwdrWQEIQKCXLC2933-77-44 13:03:00 Test Item Value Reference Range Interpretation Comments Basophils # (test code 0.1 See_Comment [Aut omated message] The = Basophils #) system which generated this result tra nsmitted reference range : <=0.2. The reference r kat was not used to int erpret this result as normal/abnormal . [facility] CenterRhxaranVIWYWLJFRR3960-81-75 13:03:00 Test Item Value Reference Range Interpretation Comments Monocytes (test code = Monocytes) 10.4 2.0-12.0 [facility] CenterButzubtIWYWSTSFPY7789-90-29 13:03:00 Test Item Value Reference Range Interpretation Comments Lymphocytes (test code = Lymphocytes) 35.3 20.0-40.0 [facility] CenterKkbtymjZHHFZNREAQ6154-83-65 13:03:00 Test Item Value Reference Range Interpretation Comments Segs (test code = Segs) 50.8 45.0-75.0 [facility] CenterVrtmzqvVLXTSMSPXV8846-79-66 13:03:00 Test Item Value Reference Range Interpretation Comments MCHC (test code = MCHC) 30.5 32.0-36.0 [facility] CenterJggggphNGGSSTTHRB9726-26-82 13:03:00 Test Item Value Reference Range Interpretation Comments Platelet (test code = Platelet) 175 133-450 [facility] CenterKulsrqqVTQOPXKEQL7251-12-12 13:03:00 Test Item Value Reference Range Interpretation Comments RDW (test code = RDW) 17.1 11.5-14.5 [facility] CenterQikwxehIZEDMFSDDR8273-38-02 13:03:00 Test Item Value Reference Range Interpretation Comments MCV (test code = MCV) 78.4 80.0-98.0 [facility] CenterBuyssfiJNAMJQBXEZ9469-91-19 13:03:00 Test Item Value Reference Range Interpretation Comments MCH (test code = MCH) 24.0 pg 27.0-31.0 [facility] CenterKupzmisXDXYDIOLXY0663-90-76 13:03:00 Test Item Value Reference Range Interpretation Comments RBC (test code = RBC) 5.15 4.20-5.40 [facility] CenterWxabjkqQCSYKWROEC7006-41-46 13:03:00 Test Item Value Reference Range Interpretation Comments Hct (test code = Hct) 40.4 36.0-48.0 [facility] CenterXksbtjtSEWOYNSFYF7978-32-48 13:03:00 Test Item Value Reference Range Interpretation Comments WBC (test code = WBC) 6.5 3.7-10.4 [facility] CenterVgczvebQQUANVJWCX7136-85-21 13:03:00 Test Item Value Reference Range Interpretation Comments MPV (test code = MPV) 10.2 7.4-10.4 [facility] CenterPvmbdlyUCJBRRWAES9077-23-94 13:03:00 Test Item Value Reference Range Interpretation Comments Hgb (test code = Hgb) 12.3 12.0-16.0 [facility]2016-01-21 13:03:00 Test Item Value Reference Range Interpretation Comments Magnesium Lvl (test code = Magnesium 1.9 1.8-2.4 Lvl) [facility]2016-01-21 13:03:00 Test Item Value Reference Range Interpretation Comments eGFR (test code = eGFR) 127 [facility]2016-01-21 13:03:00 Test Item Value Reference Range Interpretation Comments Creatinine Lvl (test code = Creatinine 0.60 0.50-1.40 Lvl) [facility]2016-01-21 13:03:00 Test Item Value Reference Range Interpretation Comments Glucose Lvl (test code = Glucose Lvl) 82 70-99 [facility]2016-01-21 13:03:00 Test Item Value Reference Range Interpretation Comments BUN (test code = BUN) 7 7-22 [facility]2016-01-21 13:03:00 Test Item Value Reference Range Interpretation Comments Potassium Lvl (test code = Potassium 4.1 3.5-5.1 Lvl) [facility]2016-01-21 13:03:00 Test Item Value Reference Range Interpretation Comments Sodium Lvl (test code = Sodium Lvl) 141 135-145 [facility]2016-01-21 13:03:00 Test Item Value Reference Range Interpretation Comments Chloride Lvl (test code = Chloride Lvl) 108 95-109 [facility]2016-01-21 13:03:00 Test Item Value Reference Range Interpretation Comments CO2 (test code = CO2) 20 24-32 [facility]2016-01-21 13:03:00 Test Item Value Reference Range Interpretation Comments Calcium Lvl (test code = Calcium Lvl) 8.9 8.5-10.5 [facility]2016-01-21 13:03:00 Test Item Value Reference Range Interpretation Comments AGAP (test code = AGAP) 17.1 10.0-20.0 [facility] CenterIptgqkgNLGPYGEPJD8688-90-54 13:03:00 Test Item Value Reference Range Interpretation Comments Lymphocytes # (test code = Lymphocytes 2.3 1.0-5.5 #) [facility] CenterGknwqqyHJBMPWYKUJ2061-63-59 13:03:00 Test Item Value Reference Range Interpretation Comments Basophils (test code = 1.0 See_Comment [Aut omated message] The Basophils) system which ge nerated this result tra nsmitted reference range : <=1.0. The reference r kat was not used to int erpret this result as normal/abnormal . [facility] CenterSwkkqmlYXTLRRLJCN8532-85-69 13:03:00 Test Item Value Reference Range Interpretation Comments Segs-Bands # (test code = Segs-Bands #) 3.3 1.5-8.1 [facility] CenterKgntcvvWIXISDVCIW0133-90-07 13:03:00 Test Item Value Reference Range Interpretation Comments Eosinophils (test code = 2.5 See_Comment [A utomated message] The Eosinophils) system which ge nerated this result tra nsmitted reference range : <=4.0. The reference r kat was not used to int erpret this result as normal/abnormal . [facility] CenterFapnbdyXUMCJFHBEE9767-09-81 13:03:00 Test Item Value Reference Range Interpretation Comments Eosinophils # (test code 0.2 See_Comment [A utomated message] The = Eosinophils #) system whic h generated this result tra nsmitted reference range : <=0.5. The reference r kat was not used to int erpret this result as normal/abnormal . [facility] CenterLcraacgWHCFNIVKMC5309-57-62 13:03:00 Test Item Value Reference Range Interpretation Comments Monocytes # (test code 0.7 See_Comment [Aut omated message] The = Monocytes #) system which generated this result tra nsmitted reference range : <=0.8. The reference r kat was not used to int erpret this result as normal/abnormal . [facility] CenterFrkszjeTUGALVULXK0453-85-15 13:03:00 Test Item Value Reference Range Interpretation Comments Microcyte (test code = 1+ *ABN*(09/19/15 Microcyte) 7:03 AM) [facility] CenterFfrpwraVHOAMJFMNG4732-25-63 13:03:00 Test Item Value Reference Range Interpretation Comments Basophils # (test code 0.1 See_Comment [Aut omated message] The = Basophils #) system which generated this result tra nsmitted reference range : <=0.2. The reference r kat was not used to int erpret this result as normal/abnormal . [facility] CenterOyimokjFETMLNXQFX2914-92-96 13:03:00 Test Item Value Reference Range Interpretation Comments Monocytes (test code = Monocytes) 10.4 2.0-12.0 [facility] CenterFiazrqyYXPVVHJLXP1267-87-73 13:03:00 Test Item Value Reference Range Interpretation Comments Lymphocytes (test code = Lymphocytes) 35.3 20.0-40.0 [facility] CenterVqyebfvAQECKMPNEQ4199-59-15 13:03:00 Test Item Value Reference Range Interpretation Comments Segs (test code = Segs) 50.8 45.0-75.0 [facility] CenterKsamvobYZKBHUXTVY5019-86-70 13:03:00 Test Item Value Reference Range Interpretation Comments MCHC (test code = MCHC) 30.5 32.0-36.0 [facility] CenterJcrowotYHCCOJGEMM5617-08-28 13:03:00 Test Item Value Reference Range Interpretation Comments Platelet (test code = Platelet) 175 133-450 [facility] CenterArhgdqyQWRUQMPHCK2438-35-28 13:03:00 Test Item Value Reference Range Interpretation Comments RDW (test code = RDW) 17.1 11.5-14.5 [facility] CenterXbehppbKUJNVSLAUN9548-69-39 13:03:00 Test Item Value Reference Range Interpretation Comments MCV (test code = MCV) 78.4 80.0-98.0 [facility] CenterWbtaowkFBQMOZXFYT5283-10-32 13:03:00 Test Item Value Reference Range Interpretation Comments MCH (test code = MCH) 24.0 pg 27.0-31.0 [facility] CenterPbuuymwPIIVUXKUAV8928-23-10 13:03:00 Test Item Value Reference Range Interpretation Comments RBC (test code = RBC) 5.15 4.20-5.40 [facility] CenterFnrjqcoVSHXIDPTRL0969-75-16 13:03:00 Test Item Value Reference Range Interpretation Comments Hct (test code = Hct) 40.4 36.0-48.0 [facility] CenterUrtjlapCJCCKTWAWG9489-97-67 13:03:00 Test Item Value Reference Range Interpretation Comments WBC (test code = WBC) 6.5 3.7-10.4 [facility] CenterTrdweahZOCWBYLCDT5650-95-22 13:03:00 Test Item Value Reference Range Interpretation Comments MPV (test code = MPV) 10.2 7.4-10.4 [facility] CenterJtsaldjHVNHEPUYFB9677-07-45 13:03:00 Test Item Value Reference Range Interpretation Comments Hgb (test code = Hgb) 12.3 12.0-16.0 [facility]2016-01-20 12:40:00 Test Item Value Reference Range Interpretation Comments eGFR (test code = eGFR) 129 [facility]2016-01-20 12:40:00 Test Item Value Reference Range Interpretation Comments Creatinine Lvl (test code = Creatinine 0.58 0.50-1.40 Lvl) [facility]2016-01-20 12:40:00 Test Item Value Reference Range Interpretation Comments CO2 (test code = CO2) 23 24-32 [facility]2016-01-20 12:40:00 Test Item Value Reference Range Interpretation Comments Chloride Lvl (test code = Chloride Lvl) 109 95-109 [facility]2016-01-20 12:40:00 Test Item Value Reference Range Interpretation Comments Calcium Lvl (test code = Calcium Lvl) 9.0 8.5-10.5 [facility]2016-01-20 12:40:00 Test Item Value Reference Range Interpretation Comments Potassium Lvl (test code = Potassium 3.7 3.5-5.1 Lvl) [facility]2016-01-20 12:40:00 Test Item Value Reference Range Interpretation Comments AGAP (test code = AGAP) 12.7 10.0-20.0 [facility]2016-01-20 12:40:00 Test Item Value Reference Range Interpretation Comments BUN (test code = BUN) 9 7-22 [facility]2016-01-20 12:40:00 Test Item Value Reference Range Interpretation Comments Sodium Lvl (test code = Sodium Lvl) 141 135-145 [facility]2016-01-20 12:40:00 Test Item Value Reference Range Interpretation Comments Glucose Lvl (test code = Glucose Lvl) 87 70-99 [facility]2016-01-20 12:40:00 Test Item Value Reference Range Interpretation Comments eGFR (test code = eGFR) 129 [facility]2016-01-20 12:40:00 Test Item Value Reference Range Interpretation Comments Creatinine Lvl (test code = Creatinine 0.58 0.50-1.40 Lvl) [facility]2016-01-20 12:40:00 Test Item Value Reference Range Interpretation Comments CO2 (test code = CO2) 23 24-32 [facility]2016-01-20 12:40:00 Test Item Value Reference Range Interpretation Comments Chloride Lvl (test code = Chloride Lvl) 109 95-109 [facility]2016-01-20 12:40:00 Test Item Value Reference Range Interpretation Comments Calcium Lvl (test code = Calcium Lvl) 9.0 8.5-10.5 [facility]2016-01-20 12:40:00 Test Item Value Reference Range Interpretation Comments Potassium Lvl (test code = Potassium 3.7 3.5-5.1 Lvl) [facility]2016-01-20 12:40:00 Test Item Value Reference Range Interpretation Comments AGAP (test code = AGAP) 12.7 10.0-20.0 [facility]2016-01-20 12:40:00 Test Item Value Reference Range Interpretation Comments BUN (test code = BUN) 9 7-22 [facility]2016-01-20 12:40:00 Test Item Value Reference Range Interpretation Comments Sodium Lvl (test code = Sodium Lvl) 141 135-145 [facility]2016-01-20 12:40:00 Test Item Value Reference Range Interpretation Comments Glucose Lvl (test code = Glucose Lvl) 87 70-99 [facility] AND [id number] 05:30:00 Test Item Value Reference Range Interpretation Comments UA Urobilinogen (test code = UA <=1.0 mg/dL 0.1-1.0 Urobilinogen) [facility] AND [id number] 05:30:00 Test Item Value Reference Range Interpretation Comments UA Color (test code = UA Color) Marry [facility] AND [id number] 05:30:00 Test Item Value Reference Range Interpretation Comments UA Bacteria (test code = UA Many /HPF Bacteria) [facility] AND [id number] 05:30:00 Test Item Value Reference Range Interpretation Comments UA Mucus (test code = UA Mucus) Many /LPF [facility] AND [id number] 05:30:00 Test Item Value Reference Range Interpretation Comments UA Leuk Est (test code Large *ABN*(09/17/15 = UA Leuk Est) 11:30 PM) [facility] AND [id number] 05:30:00 Test Item Value Reference Range Interpretation Comments UA Sq Epi (test code = UA Sq Epi) Many /LPF [facility] AND [id number] 05:30:00 Test Item Value Reference Range Interpretation Comments UA Nitrite (test code Negative (09/17/15 11:30 = UA Nitrite) PM) [facility] AND [id number] 05:30:00 Test Item Value Reference Range Interpretation Comments UA WBC (test code = 16 See_Comment [Automa arvind message] The UA WBC) system which ge nerated this result transmit arvind reference range : <=5. The reference range was not used to interpr et this result as mario l/abnormal. [facility] [id number] 05:30:00 Test Item Value Reference Range Interpretation Comments UA RBC (test code = 5 See_Comment [Automa arvind message] The UA RBC) system which ge nerated this result transmit arvind reference range : <=2. The reference range was not used to interpr et this result as mario l/abnormal. [facility] [id number] 05:30:00 Test Item Value Reference Range Interpretation Comments UA Bili (test code = Negative *NA*(09/17/15 UA Bili) 11:30 PM) [facility] [id number] 05:30:00 Test Item Value Reference Range Interpretation Comments UA Blood (test code = Negative (09/17/15 11:30 UA Blood) PM) [facility] AND [id number] 05:30:00 Test Item Value Reference Range Interpretation Comments UA Glucose (test code = UA Negative mg/dL Glucose) [facility] [id number] 05:30:00 Test Item Value Reference Range Interpretation Comments UA Ketones (test code = UA Trace mg/dL Ketones) [facility] [id number] 05:30:00 Test Item Value Reference Range Interpretation Comments UA Protein (test code = UA Protein) 30 mg/dL [facility] [id number] 05:30:00 Test Item Value Reference Range Interpretation Comments UA pH (test code = UA pH) 5.0 5.0-8.0 [facility] [id number] 05:30:00 Test Item Value Reference Range Interpretation Comments UA Spec Grav (test code = UA Spec Grav) 1.030 [facility] [id number] 05:30:00 Test Item Value Reference Range Interpretation Comments UA Turbidity (test code Marked *ABN*(09/17/15 = UA Turbidity) 11:30 PM) [facility] [id number] 05:30:00 Test Item Value Reference Range Interpretation Comments U Preg (test code = U Negative (09/17/15 11:30 Preg) PM) [facility] AND [id number] 05:30:00 Test Item Value Reference Range Interpretation Comments UA Urobilinogen (test code = UA <=1.0 mg/dL 0.1-1.0 Urobilinogen) [facility] AND [id number] 05:30:00 Test Item Value Reference Range Interpretation Comments UA Color (test code = UA Color) Marry [facility] AND [id number] 05:30:00 Test Item Value Reference Range Interpretation Comments UA Bacteria (test code = UA Many /HPF Bacteria) [facility] AND [id number] 05:30:00 Test Item Value Reference Range Interpretation Comments UA Mucus (test code = UA Mucus) Many /LPF [facility] AND [id number] 05:30:00 Test Item Value Reference Range Interpretation Comments UA Leuk Est (test code Large *ABN*(09/17/15 = UA Leuk Est) 11:30 PM) [facility] AND [id number] 05:30:00 Test Item Value Reference Range Interpretation Comments UA Sq Epi (test code = UA Sq Epi) Many /LPF [facility] AND [id number] 05:30:00 Test Item Value Reference Range Interpretation Comments UA Nitrite (test code Negative (09/17/15 11:30 = UA Nitrite) PM) [facility] AND [id number] 05:30:00 Test Item Value Reference Range Interpretation Comments UA WBC (test code = 16 See_Comment [Automa arvind message] The UA WBC) system which ge nerated this result transmit arvind reference range : <=5. The reference range was not used to interpr et this result as mario l/abnormal. [facility] AND [id number] 05:30:00 Test Item Value Reference Range Interpretation Comments UA RBC (test code = 5 See_Comment [Automa arvind message] The UA RBC) system which ge nerated this result transmit arvind reference range : <=2. The reference range was not used to interpr et this result as mario l/abnormal. [facility] AND [id number] 05:30:00 Test Item Value Reference Range Interpretation Comments UA Bili (test code = Negative *NA*(09/17/15 UA Bili) 11:30 PM) [facility] AND [id number] 05:30:00 Test Item Value Reference Range Interpretation Comments UA Blood (test code = Negative (09/17/15 11:30 UA Blood) PM) [facility] [id number] 05:30:00 Test Item Value Reference Range Interpretation Comments UA Glucose (test code = UA Negative mg/dL Glucose) [facility] AND [id number] 05:30:00 Test Item Value Reference Range Interpretation Comments UA Ketones (test code = UA Trace mg/dL Ketones) [facility] AND [id number] 05:30:00 Test Item Value Reference Range Interpretation Comments UA Protein (test code = UA Protein) 30 mg/dL [facility] AND [id number] 05:30:00 Test Item Value Reference Range Interpretation Comments UA pH (test code = UA pH) 5.0 5.0-8.0 [facility] AND [id number] 05:30:00 Test Item Value Reference Range Interpretation Comments UA Spec Grav (test code = UA Spec Grav) 1.030 [facility] AND [id number] 05:30:00 Test Item Value Reference Range Interpretation Comments UA Turbidity (test code Marked *ABN*(09/17/15 = UA Turbidity) 11:30 PM) [facility] [id number] 05:30:00 Test Item Value Reference Range Interpretation Comments U Preg (test code = U Negative (09/17/15 11:30 Preg) PM) [facility] [id number] 02:01:00 Test Item Value Reference Range Interpretation Comments Lipase Lvl (test code = Lipase Lvl) 196 73-393 [facility] [id number] 02:01:00 Test Item Value Reference Range Interpretation Comments Amylase Lvl (test code = Amylase Lvl) 33 25-115 [facility]ballJkfbohdKKAFUMWJAKRF9556-22-11 02:01:00 Test Item Value Reference Range Interpretation Comments AGAP (test code = AGAP) 10.7 10.0-20.0 [facility] KhjczuiMKUYULGQIELL7966-03-07 02:01:00 Test Item Value Reference Range Interpretation Comments A/G Ratio (test code = A/G Ratio) 1.2 0.7-1.6 [facility]RmghbavKBNCYDQLTTUU7480-38-41 02:01:00 Test Item Value Reference Range Interpretation Comments Globulin (test code = Globulin) 3.1 2.0-4.0 [facility] HospitalJxykdqhTVWHIZQDTVBR4744-90-40 02:01:00 Test Item Value Reference Range Interpretation Comments B/C Ratio (test code = B/C Ratio) 13 6-25 [facility] HospitalJwtrzolCAOKYQICTRYU0501-47-89 02:01:00 Test Item Value Reference Range Interpretation Comments Total Protein (test code = Total 6.9 6.4-8.4 Protein) [facility] HospitalZkobnjnAXZDADYIGQMO1580-84-56 02:01:00 Test Item Value Reference Range Interpretation Comments Calcium Lvl (test code = Calcium Lvl) 9.0 8.5-10.5 [facility] HospitalCutueymJHFSLWVNTATG5117-22-45 02:01:00 Test Item Value Reference Range Interpretation Comments CO2 (test code = CO2) 26 24-32 [facility] HospitalFxykzjfJMDBXMODBEYH5265-52-88 02:01:00 Test Item Value Reference Range Interpretation Comments eGFR (test code = eGFR) 110 [facility] HospitalNxbujlpYBMSUHFGDGLD4568-61-10 02:01:00 Test Item Value Reference Range Interpretation Comments Bili Total (test code = Bili Total) 0.3 0.2-1.3 [facility] HospitalKozuyafMZJCANLNGEVH9977-35-99 02:01:00 Test Item Value Reference Range Interpretation Comments Alk Phos (test code = Alk Phos) 84 39-136 [facility] HospitalFjaqjvpTKYTLZWDVDOK9903-33-60 02:01:00 Test Item Value Reference Range Interpretation Comments AST (test code = AST) 17 See_Comment [Auto mated message] The system which ge nerated this result transmit arvind reference range : <=37. The reference range was not used to interpr et this result as mario l/abnormal. [facility] HospitalEoajodbSMDGCKFEPPEW8210-69-65 02:01:00 Test Item Value Reference Range Interpretation Comments ALT (test code = ALT) 42 See_Comment [Auto mated message] The system which ge nerated this result transmit arvind reference range : <=65. The reference range was not used to interpr et this result as mario l/abnormal. [facility] HospitalPngymrvDZEDICAZAQIX8917-63-73 02:01:00 Test Item Value Reference Range Interpretation Comments Albumin Lvl (test code = Albumin Lvl) 3.8 3.5-5.0 [facility] Hospital[id number] 02:01:00 Test Item Value Reference Range Interpretation Comments Sodium Lvl (test code = Sodium Lvl) 139 135-145 [facility] HospitalCghrepiQZFBSGBXOFEU2886-15-41 02:01:00 Test Item Value Reference Range Interpretation Comments Chloride Lvl (test code = Chloride Lvl) 106 95-109 [facility] HospitalSkolkgfHGBSEKIPATVB3629-56-03 02:01:00 Test Item Value Reference Range Interpretation Comments Potassium Lvl (test code = Potassium 3.7 3.5-5.1 Lvl) [facility] HospitalHdcqrqwXGWVLDCYOWYI0324-15-54 02:01:00 Test Item Value Reference Range Interpretation Comments BUN (test code = BUN) 10 7-22 [facility] HospitalKycsrsoHIKXALOFKABT1522-22-77 02:01:00 Test Item Value Reference Range Interpretation Comments Glucose Lvl (test code = Glucose Lvl) 88 70-99 [facility] HospitalVnniqfuUZXZYNFHIXHU0243-79-61 02:01:00 Test Item Value Reference Range Interpretation Comments Creatinine Lvl (test code = Creatinine 0.76 0.50-1.40 Lvl) [facility] CenterLuxldpcIQZOKAKDLG2924-87-29 02:01:00 Test Item Value Reference Range Interpretation Comments Segs-Bands # (test code = Segs-Bands #) 5.4 1.5-8.1 [facility] Cent[id number] 02:01:00 Test Item Value Reference Range Interpretation Comments Basophils (test code = 1.0 See_Comment [Aut omated message] The Basophils) system which ge nerated this result tra nsmitted reference range : <=1.0. The reference r kat was not used to int erpret this result as normal/abnormal . [facility] CenterPmhbndlJDVHIXHZJS2445-71-48 02:01:00 Test Item Value Reference Range Interpretation Comments Monocytes # (test code 0.7 See_Comment [Aut omated message] The = Monocytes #) system which generated this result tra nsmitted reference range : <=0.8. The reference r kat was not used to int erpret this result as normal/abnormal . [facility] CenterHbknnxgUVFRHFSVBO2854-27-26 02:01:00 Test Item Value Reference Range Interpretation Comments Lymphocytes (test code = Lymphocytes) 35.1 20.0-40.0 [facility] CenterWvjptacZZDRBMAZTQ3666-65-62 02:01:00 Test Item Value Reference Range Interpretation Comments Lymphocytes # (test code = Lymphocytes 3.5 1.0-5.5 #) [facility] CenterXveafsoEUOIIATBXR5239-70-21 02:01:00 Test Item Value Reference Range Interpretation Comments Monocytes (test code = Monocytes) 6.7 2.0-12.0 [facility] CenterAkxprdbJAURLCFSHE8733-32-98 02:01:00 Test Item Value Reference Range Interpretation Comments Segs (test code = Segs) 54.8 45.0-75.0 [facility] CenterIghkcbtYXTCJVPZBB8464-84-18 02:01:00 Test Item Value Reference Range Interpretation Comments Eosinophils (test code = 2.4 See_Comment [A utomated message] The Eosinophils) system which ge nerated this result tra nsmitted reference range : <=4.0. The reference r kat was not used to int erpret this result as normal/abnormal . [facility] [facility]kzjznxLWFQEIWFBK3936-40-53 02:01:00 Test Item Value Reference Range Interpretation Comments Basophils # (test code 0.1 See_Comment [Aut omated message] The = Basophils #) system which generated this result tra nsmitted reference range : <=0.2. The reference r kat was not used to int erpret this result as normal/abnormal . [facility]DlnvvjoXRAGJIYIRA6387-55-63 02:01:00 Test Item Value Reference Range Interpretation Comments Microcyte (test code = 1+ *ABN*(09/17/15 Microcyte) 8:01 PM) [facility] CenterZjwhmnvGLQCSAURRA1125-36-07 02:01:00 Test Item Value Reference Range Interpretation Comments Eosinophils # (test code 0.2 See_Comment [A utomated message] The = Eosinophils #) system whic h generated this result tra nsmitted reference range : <=0.5. The reference r kat was not used to int erpret this result as normal/abnormal . [facility] CenterCsieeweJWPKHVEGXI8466-43-73 02:01:00 Test Item Value Reference Range Interpretation Comments MPV (test code = MPV) 10.0 7.4-10.4 [facility] CenterQnoeaggTMIVLYWEIJ6225-80-40 02:01:00 Test Item Value Reference Range Interpretation Comments RDW (test code = RDW) 16.9 11.5-14.5 [facility] CenterKizyryeCEIEKIPPMP9786-73-34 02:01:00 Test Item Value Reference Range Interpretation Comments Platelet (test code = Platelet) 208 133-450 [facility] CenterOhgyivsMXNFHLTBTG0125-14-96 02:01:00 Test Item Value Reference Range Interpretation Comments MCV (test code = MCV) 77.9 80.0-98.0 [facility] CenterSygfjceYITFPKBUGK2669-15-00 02:01:00 Test Item Value Reference Range Interpretation Comments MCH (test code = MCH) 24.2 pg 27.0-31.0 [facility] CenterNwrrnxsDGGVHPETCX4858-29-31 02:01:00 Test Item Value Reference Range Interpretation Comments MCHC (test code = MCHC) 31.1 32.0-36.0 [facility] CenterKbjeufcTYKUFWLPBB5840-01-52 02:01:00 Test Item Value Reference Range Interpretation Comments Hgb (test code = Hgb) 13.3 12.0-16.0 [facility] CenterEoknrqkTKIOJWQIVB6763-03-84 02:01:00 Test Item Value Reference Range Interpretation Comments Hct (test code = Hct) 42.6 36.0-48.0 [facility] CenterJnsbzwiEWEKZBHJGF2068-16-51 02:01:00 Test Item Value Reference Range Interpretation Comments WBC (test code = WBC) 9.9 3.7-10.4 [facility] CenterGrynpjsARFIUGHWEE8277-05-55 02:01:00 Test Item Value Reference Range Interpretation Comments RBC (test code = RBC) 5.47 4.20-5.40 [facility]2016-01-20 02:01:00 Test Item Value Reference Range Interpretation Comments Lipase Lvl (test code = Lipase Lvl) 196 73-393 [facility] OCQAE9168-70-31 02:01:00 Test Item Value Reference Range Interpretation Comments Amylase Lvl (test code = Amylase Lvl) 33 25-115 [facility]PqgzetkNNUFSVPLYTOJ2205-89-27 02:01:00 Test Item Value Reference Range Interpretation Comments AGAP (test code = AGAP) 10.7 10.0-20.0 [facility] HospitalCuansclMZGTHXPOFXGS9272-80-95 02:01:00 Test Item Value Reference Range Interpretation Comments A/G Ratio (test code = A/G Ratio) 1.2 0.7-1.6 [facility] HospitalTbocjczHGLZTSZKYILK6084-15-69 02:01:00 Test Item Value Reference Range Interpretation Comments Globulin (test code = Globulin) 3.1 2.0-4.0 [facility] HospitalPpspfgaWXCTDWXHONCG9186-11-86 02:01:00 Test Item Value Reference Range Interpretation Comments B/C Ratio (test code = B/C Ratio) 13 6-25 [facility] HospitalMuvrozcCAJOUEXLXAAO9408-69-58 02:01:00 Test Item Value Reference Range Interpretation Comments Total Protein (test code = Total 6.9 6.4-8.4 Protein) [facility] HospitalVzoezcgWCYSUUUZJEPW2866-63-04 02:01:00 Test Item Value Reference Range Interpretation Comments Calcium Lvl (test code = Calcium Lvl) 9.0 8.5-10.5 [facility] HospitalQpqybfbOFSCUPRFVYCO3737-28-62 02:01:00 Test Item Value Reference Range Interpretation Comments CO2 (test code = CO2) 26 24-32 [facility] HospitalDvaopqyVHBQKFLCDSPP3884-64-21 02:01:00 Test Item Value Reference Range Interpretation Comments eGFR (test code = eGFR) 110 [facility] HospitalZxxtsngOKMGUCLLOUIQ5462-67-44 02:01:00 Test Item Value Reference Range Interpretation Comments Bili Total (test code = Bili Total) 0.3 0.2-1.3 [facility] HospitalJoptwvqJTKMUNQYINSC1969-06-68 02:01:00 Test Item Value Reference Range Interpretation Comments Alk Phos (test code = Alk Phos) 84 39-136 [facility] HospitalStbtwpaOYYVMTUCHSFX2629-11-95 02:01:00 Test Item Value Reference Range Interpretation Comments AST (test code = AST) 17 See_Comment [Auto mated message] The system which ge nerated this result transmit arvind reference range : <=37. The reference range was not used to interpr et this result as mario l/abnormal. [facility] HospitalJqddmluMZBNRRJQKDMD9260-18-85 02:01:00 Test Item Value Reference Range Interpretation Comments ALT (test code = ALT) 42 See_Comment [Auto mated message] The system which ge nerated this result transmit arvind reference range : <=65. The reference range was not used to interpr et this result as mario l/abnormal. [facility] HospitalJlzbwskIWGCMLZWTMTJ8688-51-84 02:01:00 Test Item Value Reference Range Interpretation Comments Albumin Lvl (test code = Albumin Lvl) 3.8 3.5-5.0 [facility] HospitalSycgyqcDXTDNBIHUCXF7818-09-75 02:01:00 Test Item Value Reference Range Interpretation Comments Sodium Lvl (test code = Sodium Lvl) 139 135-145 [facility] HospitalOvdyvzdQYTMCVZQABLO7844-52-15 02:01:00 Test Item Value Reference Range Interpretation Comments Chloride Lvl (test code = Chloride Lvl) 106 95-109 [facility] HospitalGvmsrbwQSMFEJLVTYTI3819-08-28 02:01:00 Test Item Value Reference Range Interpretation Comments Potassium Lvl (test code = Potassium 3.7 3.5-5.1 Lvl) [facility] HospitalMurbfblCINBLQSCDSZY2256-17-87 02:01:00 Test Item Value Reference Range Interpretation Comments BUN (test code = BUN) 10 7-22 [facility] HospitalUlyhvrwGYJWXPQEFPYL1968-84-56 02:01:00 Test Item Value Reference Range Interpretation Comments Glucose Lvl (test code = Glucose Lvl) 88 70-99 [facility] HospitalXfxjszfSILARAOAGWIA0478-11-27 02:01:00 Test Item Value Reference Range Interpretation Comments Creatinine Lvl (test code = Creatinine 0.76 0.50-1.40 Lvl) [facility] CenterOtvssplBASRLFYTYE6093-64-20 02:01:00 Test Item Value Reference Range Interpretation Comments Segs-Bands # (test code = Segs-Bands #) 5.4 1.5-8.1 [facility] CenterQesiyptIAHRSTFWZY9374-17-91 02:01:00 Test Item Value Reference Range Interpretation Comments Basophils (test code = 1.0 See_Comment [Aut omated message] The Basophils) system which ge nerated this result tra nsmitted reference range : <=1.0. The reference r kat was not used to int erpret this result as normal/abnormal . [facility] CenterGebygklKBLOAJAIAO6055-45-68 02:01:00 Test Item Value Reference Range Interpretation Comments Monocytes # (test code 0.7 See_Comment [Aut omated message] The = Monocytes #) system which generated this result tra nsmitted reference range : <=0.8. The reference r kat was not used to int erpret this result as normal/abnormal . [facility] CenterIkaoamrXKSFHYSZZM9050-21-08 02:01:00 Test Item Value Reference Range Interpretation Comments Lymphocytes (test code = Lymphocytes) 35.1 20.0-40.0 [facility] CenterUvgvcosPWONXFPBBA0634-98-09 02:01:00 Test Item Value Reference Range Interpretation Comments Lymphocytes # (test code = Lymphocytes 3.5 1.0-5.5 #) [facility] CenterZxzovjtOXHUWPOGEA3188-34-88 02:01:00 Test Item Value Reference Range Interpretation Comments Monocytes (test code = Monocytes) 6.7 2.0-12.0 [facility] CenterZgjjazpKGQHVJHEFY6007-88-45 02:01:00 Test Item Value Reference Range Interpretation Comments Segs (test code = Segs) 54.8 45.0-75.0 [facility] CenterCizhtydHCWJVISFAI9377-08-06 02:01:00 Test Item Value Reference Range Interpretation Comments Eosinophils (test code = 2.4 See_Comment [A utomated message] The Eosinophils) system which ge nerated this result tra nsmitted reference range : <=4.0. The reference r kat was not used to int erpret this result as normal/abnormal . [facility] CenterEcognieMBYXXEASNQ3077-30-66 02:01:00 Test Item Value Reference Range Interpretation Comments Basophils # (test code 0.1 See_Comment [Aut omated message] The = Basophils #) system which generated this result tra nsmitted reference range : <=0.2. The reference r kat was not used to int erpret this result as normal/abnormal . [facility] CenterAkhptzlLXNZAYUPBS4060-65-26 02:01:00 Test Item Value Reference Range Interpretation Comments Microcyte (test code = 1+ *ABN*(09/17/15 Microcyte) 8:01 PM) [facility] CenterHqpjkrdSKDYGARRZK8133-22-34 02:01:00 Test Item Value Reference Range Interpretation Comments Eosinophils # (test code 0.2 See_Comment [A utomated message] The = Eosinophils #) system whic h generated this result tra nsmitted reference range : <=0.5. The reference r kat was not used to int erpret this result as normal/abnormal . [facility] CenterRndnpmaWOOODIHGUI1303-48-89 02:01:00 Test Item Value Reference Range Interpretation Comments MPV (test code = MPV) 10.0 7.4-10.4 [facility] CenterQaarsnpFLTQHEBDIJ3367-10-58 02:01:00 Test Item Value Reference Range Interpretation Comments RDW (test code = RDW) 16.9 11.5-14.5 [facility] CenterMmaogvpSKANUDOKUJ8076-92-08 02:01:00 Test Item Value Reference Range Interpretation Comments Platelet (test code = Platelet) 208 133-450 [facility] CenterMwtqootKAQQPXTUJX2954-65-47 02:01:00 Test Item Value Reference Range Interpretation Comments MCV (test code = MCV) 77.9 80.0-98.0 [facility] CenterJjbmkyyOKMRALRFXQ3204-61-73 02:01:00 Test Item Value Reference Range Interpretation Comments MCH (test code = MCH) 24.2 pg 27.0-31.0 [facility] CenterWsoiggdBLBOASFVIX5893-29-25 02:01:00 Test Item Value Reference Range Interpretation Comments MCHC (test code = MCHC) 31.1 32.0-36.0 [facility] CenterKfdmnkoLXRXLXRQZE2916-85-68 02:01:00 Test Item Value Reference Range Interpretation Comments Hgb (test code = Hgb) 13.3 12.0-16.0 [facility] CenterTxjknvbGPPICUGRNH2289-01-28 02:01:00 Test Item Value Reference Range Interpretation Comments Hct (test code = Hct) 42.6 36.0-48.0 [facility] CenterSbyrxgaNUYMQRBOOH1153-15-14 02:01:00 Test Item Value Reference Range Interpretation Comments WBC (test code = WBC) 9.9 3.7-10.4 [facility] CenterEoiakmiPKASBLRKTN5348-20-08 02:01:00 Test Item Value Reference Range Interpretation Comments RBC (test code = RBC) 5.47 4.20-5.40 [facility]2015-12-28 16:57:00 Test Item Value Reference Range Interpretation Comments eGFR (test code = eGFR) 86 [facility]2015-12-28 16:57:00 Test Item Value Reference Range Interpretation Comments Potassium Lvl (test code = Potassium 3.6 3.5-5.1 Lvl) [facility]2015-12-28 16:57:00 Test Item Value Reference Range Interpretation Comments CO2 (test code = CO2) -32 [facility]2015-12-28 16:57:00 Test Item Value Reference Range Interpretation Comments Chloride Lvl (test code = Chloride Lvl) 103 95-109 [facility]2015-12-28 16:57:00 Test Item Value Reference Range Interpretation Comments Calcium Lvl (test code = Calcium Lvl) 9.4 8.5-10.5 [facility]2015-12-28 16:57:00 Test Item Value Reference Range Interpretation Comments AST (test code = AST) 16 See_Comment [Auto mated message] The system which ge nerated this result transmit arvind reference range : <=37. The reference range was not used to interpr et this result as mario l/abnormal. [facility]2015-12-28 16:57:00 Test Item Value Reference Range Interpretation Comments ALT (test code = ALT) 43 See_Comment [Auto mated message] The system which ge nerated this result transmit arvind reference range : <=65. The reference range was not used to interpr et this result as mario l/abnormal. [facility]2015-12-28 16:57:00 Test Item Value Reference Range Interpretation Comments Alk Phos (test code = Alk Phos) 97 39-136 [facility]2015-12-28 16:57:00 Test Item Value Reference Range Interpretation Comments Albumin Lvl (test code = Albumin Lvl) 3.6 3.5-5.0 [facility]2015-12-28 16:57:00 Test Item Value Reference Range Interpretation Comments Total Protein (test code = Total 7.3 6.4-8.4 Protein) [facility]2015-12-28 16:57:00 Test Item Value Reference Range Interpretation Comments Bili Total (test code = Bili Total) 0.4 0.2-1.3 [facility]2015-12-28 16:57:00 Test Item Value Reference Range Interpretation Comments Glucose Lvl (test code = Glucose Lvl) 95 70-99 [facility]2015-12-28 16:57:00 Test Item Value Reference Range Interpretation Comments Creatinine Lvl (test code = Creatinine 0.93 0.50-1.40 Lvl) [facility]2015-12-28 16:57:00 Test Item Value Reference Range Interpretation Comments BUN (test code = BUN) 9 7-22 [facility]2015-12-28 16:57:00 Test Item Value Reference Range Interpretation Comments Sodium Lvl (test code = Sodium Lvl) 139 135-145 [facility]2015-12-28 16:57:00 Test Item Value Reference Range Interpretation Comments A/G Ratio (test code = A/G Ratio) 1.0 0.7-1.6 [facility]2015-12-28 16:57:00 Test Item Value Reference Range Interpretation Comments Globulin (test code = Globulin) 3.7 2.0-4.0 [facility]2015-12-28 16:57:00 Test Item Value Reference Range Interpretation Comments B/C Ratio (test code = B/C Ratio) 10 6-25 [facility]2015-12-28 16:57:00 Test Item Value Reference Range Interpretation Comments AGAP (test code = AGAP) 12.6 10.0-20.0 [place] 41383015-12-28 16:57:00 Test Item Value Reference Range Interpretation Comments S Preg (test code = S Negative *NA*(08/26/15 Preg) 10:57 AM) [facility] CenterYlacoftPRMWOLVUAQ8313-53-12 16:57:00 Test Item Value Reference Range Interpretation Comments Eosinophils # (test code 0.4 See_Comment [A utomated message] The = Eosinophils #) system whic h generated this result tra nsmitted reference range : <=0.5. The reference r kat was not used to int erpret this result as normal/abnormal . [facility] CenterEehjaniLPCPCRTYSD7160-42-51 16:57:00 Test Item Value Reference Range Interpretation Comments Microcyte (test code = 1+ *ABN*(08/26/15 Microcyte) 10:57 AM) [facility] CenterPsorsxxORZPEKWHAV1139-40-82 16:57:00 Test Item Value Reference Range Interpretation Comments Basophils # (test code 0.1 See_Comment [Aut omated message] The = Basophils #) system which generated this result tra nsmitted reference range : <=0.2. The reference r kat was not used to int erpret this result as normal/abnormal . [facility] CenterXoccrdaEMHYOIILYV7163-38-55 16:57:00 Test Item Value Reference Range Interpretation Comments Monocytes (test code = Monocytes) 8.6 2.0-12.0 [facility] CenterSqsaowtMERQNEJUDI8491-46-29 16:57:00 Test Item Value Reference Range Interpretation Comments Lymphocytes (test code = Lymphocytes) 40.6 20.0-40.0 [facility] CenterHrhdlhiQFLRFJPOKR0711-16-38 16:57:00 Test Item Value Reference Range Interpretation Comments Eosinophils (test code = 5.0 See_Comment [A utomated message] The Eosinophils) system which ge nerated this result tra nsmitted reference range : <=4.0. The reference r kat was not used to int erpret this result as normal/abnormal . [facility] CenterMifmzquAVLKIZGVEK0586-64-91 16:57:00 Test Item Value Reference Range Interpretation Comments Segs (test code = Segs) 44.8 45.0-75.0 [facility] CenterHrykgifOFZPASLUXU1962-20-23 16:57:00 Test Item Value Reference Range Interpretation Comments Basophils (test code = 1.0 See_Comment [Aut omated message] The Basophils) system which ge nerated this result tra nsmitted reference range : <=1.0. The reference r kat was not used to int erpret this result as normal/abnormal . [facility] CenterXzsvpjiBODFFRUJVG5564-46-77 16:57:00 Test Item Value Reference Range Interpretation Comments Segs-Bands # (test code = Segs-Bands #) 3.3 1.5-8.1 [facility] CenterHtonhqgHPYCXUHUIC5189-63-85 16:57:00 Test Item Value Reference Range Interpretation Comments Monocytes # (test code 0.6 See_Comment [Aut omated message] The = Monocytes #) system which generated this result tra nsmitted reference range : <=0.8. The reference r kat was not used to int erpret this result as normal/abnormal . [facility] CenterCqvqawvZZSNETZKIA6792-21-44 16:57:00 Test Item Value Reference Range Interpretation Comments Lymphocytes # (test code = Lymphocytes 3.0 1.0-5.5 #) [facility] CenterAwpmarcKCWIAQYHPG3849-81-40 16:57:00 Test Item Value Reference Range Interpretation Comments PT (test code = PT) 14.0 s 12.0-14.7 [facility] CenterPxaibzcOUSGUGOWPO2876-39-86 16:57:00 Test Item Value Reference Range Interpretation Comments INR (test code = INR) 1.05 0.85-1.17 [facility] CenterCwiqvrgNCHVTPUDNU5830-58-32 16:57:00 Test Item Value Reference Range Interpretation Comments PTT (test code = PTT) 30.3 s 22.9-35.8 [facility] CenterDwlywkcCPTDDFGWOW0812-04-00 16:57:00 Test Item Value Reference Range Interpretation Comments MPV (test code = MPV) 8.9 7.4-10.4 [facility] CenterTexrijfKQHGOOBHBX0377-88-60 16:57:00 Test Item Value Reference Range Interpretation Comments RDW (test code = RDW) 15.8 11.5-14.5 [facility] CenterYqlrqlzVVPZAWCKMF2058-80-11 16:57:00 Test Item Value Reference Range Interpretation Comments Platelet (test code = Platelet) 271 133-450 [facility] CenterVcvvvhlTISCOVSTFW3030-31-75 16:57:00 Test Item Value Reference Range Interpretation Comments WBC (test code = WBC) 7.3 3.7-10.4 [facility] CenterQbijgzsAKBXUAOYRV1053-80-27 16:57:00 Test Item Value Reference Range Interpretation Comments RBC (test code = RBC) 5.14 4.20-5.40 [facility] CenterLlzoklmYHHZPETUPH9426-81-26 16:57:00 Test Item Value Reference Range Interpretation Comments MCV (test code = MCV) 77.9 80.0-98.0 [facility] CenterZgprbvzLXZPPZJBLX9465-79-19 16:57:00 Test Item Value Reference Range Interpretation Comments MCH (test code = MCH) 23.9 pg 27.0-31.0 [facility] CenterVnlecmlLGFTSBAFFO5619-48-99 16:57:00 Test Item Value Reference Range Interpretation Comments MCHC (test code = MCHC) 30.7 32.0-36.0 [facility] CenterUnadomcTMCTSQEZBO0286-13-19 16:57:00 Test Item Value Reference Range Interpretation Comments Hct (test code = Hct) 40.1 36.0-48.0 [facility] CenterLzrmhduMRMLUNSOXN6190-67-37 16:57:00 Test Item Value Reference Range Interpretation Comments Hgb (test code = Hgb) 12.3 12.0-16.0 [facility]2015-12-28 16:57:00 Test Item Value Reference Range Interpretation Comments eGFR (test code = eGFR) 86 [facility]2015-12-28 16:57:00 Test Item Value Reference Range Interpretation Comments Potassium Lvl (test code = Potassium 3.6 3.5-5.1 Lvl) [facility]2015-12-28 16:57:00 Test Item Value Reference Range Interpretation Comments CO2 (test code = CO2) 27 24-32 [facility]2015-12-28 16:57:00 Test Item Value Reference Range Interpretation Comments Chloride Lvl (test code = Chloride Lvl) 103 95-109 [facility]2015-12-28 16:57:00 Test Item Value Reference Range Interpretation Comments Calcium Lvl (test code = Calcium Lvl) 9.4 8.5-10.5 [facility]2015-12-28 16:57:00 Test Item Value Reference Range Interpretation Comments AST (test code = AST) 16 See_Comment [Auto mated message] The system which ge nerated this result transmit arvind reference range : <=37. The reference range was not used to interpr et this result as mario l/abnormal. [facility]2015-12-28 16:57:00 Test Item Value Reference Range Interpretation Comments ALT (test code = ALT) 43 See_Comment [Auto mated message] The system which ge nerated this result transmit arvind reference range : <=65. The reference range was not used to interpr et this result as mario l/abnormal. [facility]2015-12-28 16:57:00 Test Item Value Reference Range Interpretation Comments Alk Phos (test code = Alk Phos) 97 39-136 [facility]2015-12-28 16:57:00 Test Item Value Reference Range Interpretation Comments Albumin Lvl (test code = Albumin Lvl) 3.6 3.5-5.0 [facility]2015-12-28 16:57:00 Test Item Value Reference Range Interpretation Comments Total Protein (test code = Total 7.3 6.4-8.4 Protein) [facility]2015-12-28 16:57:00 Test Item Value Reference Range Interpretation Comments Bili Total (test code = Bili Total) 0.4 0.2-1.3 [facility]2015-12-28 16:57:00 Test Item Value Reference Range Interpretation Comments Glucose Lvl (test code = Glucose Lvl) 95 70-99 [facility]2015-12-28 16:57:00 Test Item Value Reference Range Interpretation Comments Creatinine Lvl (test code = Creatinine 0.93 0.50-1.40 Lvl) [facility]2015-12-28 16:57:00 Test Item Value Reference Range Interpretation Comments BUN (test code = BUN) 9 - [facility]2015-12-28 16:57:00 Test Item Value Reference Range Interpretation Comments Sodium Lvl (test code = Sodium Lvl) 139 135-145 [facility]2015-12-28 16:57:00 Test Item Value Reference Range Interpretation Comments A/G Ratio (test code = A/G Ratio) 1.0 0.7-1.6 [facility]2015-12-28 16:57:00 Test Item Value Reference Range Interpretation Comments Globulin (test code = Globulin) 3.7 2.0-4.0 [facility]2015-12-28 16:57:00 Test Item Value Reference Range Interpretation Comments B/C Ratio (test code = B/C Ratio) 10 - [facility]2015-12-28 16:57:00 Test Item Value Reference Range Interpretation Comments AGAP (test code = AGAP) 12.6 10.0-20.0 [place] [id number] 16:57:00 Test Item Value Reference Range Interpretation Comments S Preg (test code = S Negative *NA*(08/26/15 Preg) 10:57 AM) [facility] CenterQlfqnhmTTCYIQOGPQ1574-59-57 16:57:00 Test Item Value Reference Range Interpretation Comments Eosinophils # (test code 0.4 See_Comment [A utomated message] The = Eosinophils #) system whic h generated this result tra nsmitted reference range : <=0.5. The reference r kat was not used to int erpret this result as normal/abnormal . [facility] CenterUhqdgiuOCTYLTRXRZ9313-16-22 16:57:00 Test Item Value Reference Range Interpretation Comments Microcyte (test code = 1+ *ABN*(08/26/15 Microcyte) 10:57 AM) [facility] CenterVencfqsIHHZLFEFXM2175-69-12 16:57:00 Test Item Value Reference Range Interpretation Comments Basophils # (test code 0.1 See_Comment [Aut omated message] The = Basophils #) system which generated this result tra nsmitted reference range : <=0.2. The reference r kat was not used to int erpret this result as normal/abnormal . [facility] CenterLiftgqfRENETMQJBR4078-49-43 16:57:00 Test Item Value Reference Range Interpretation Comments Monocytes (test code = Monocytes) 8.6 2.0-12.0 [facility] CenterQjusbjfNJDTNUWXEO1907-75-10 16:57:00 Test Item Value Reference Range Interpretation Comments Lymphocytes (test code = Lymphocytes) 40.6 20.0-40.0 [facility] CenterQjyhfgwSHBKUDBSDD1791-08-23 16:57:00 Test Item Value Reference Range Interpretation Comments Eosinophils (test code = 5.0 See_Comment [A utomated message] The Eosinophils) system which ge nerated this result tra nsmitted reference range : <=4.0. The reference r kat was not used to int erpret this result as normal/abnormal . [facility] CenterQqhujskVCBTJVXFYL8170-50-70 16:57:00 Test Item Value Reference Range Interpretation Comments Segs (test code = Segs) 44.8 45.0-75.0 [facility] CenterAauxspgCNBBXNUZLJ2832-39-42 16:57:00 Test Item Value Reference Range Interpretation Comments Basophils (test code = 1.0 See_Comment [Aut omated message] The Basophils) system which ge nerated this result tra nsmitted reference range : <=1.0. The reference r kat was not used to int erpret this result as normal/abnormal . [facility] CenterCqtppshYLKBTQZJDD6258-01-72 16:57:00 Test Item Value Reference Range Interpretation Comments Segs-Bands # (test code = Segs-Bands #) 3.3 1.5-8.1 [facility] CenterRbezaxlYULNKCUTAQ9102-75-13 16:57:00 Test Item Value Reference Range Interpretation Comments Monocytes # (test code 0.6 See_Comment [Aut omated message] The = Monocytes #) system which generated this result tra nsmitted reference range : <=0.8. The reference r kat was not used to int erpret this result as normal/abnormal . [facility] CenterZwvyhwiRWOIKLPDYG6995-35-03 16:57:00 Test Item Value Reference Range Interpretation Comments Lymphocytes # (test code = Lymphocytes 3.0 1.0-5.5 #) [facility] CenterNrhpgdyGETJFMYABR0734-07-52 16:57:00 Test Item Value Reference Range Interpretation Comments PT (test code = PT) 14.0 s 12.0-14.7 [facility] CenterKdyiseyQCVJGICEYU7864-00-01 16:57:00 Test Item Value Reference Range Interpretation Comments INR (test code = INR) 1.05 0.85-1.17 [facility] CenterPyseeesWTVMEOSQTZ2152-46-75 16:57:00 Test Item Value Reference Range Interpretation Comments PTT (test code = PTT) 30.3 s 22.9-35.8 [facility] CenterXunbgclWDTCZXMGFZ9583-29-69 16:57:00 Test Item Value Reference Range Interpretation Comments MPV (test code = MPV) 8.9 7.4-10.4 [facility] CenterHoltnlhPCCRKBYASM8520-06-37 16:57:00 Test Item Value Reference Range Interpretation Comments RDW (test code = RDW) 15.8 11.5-14.5 [facility] CenterVgwbnjwPDLCAYIPND8357-63-99 16:57:00 Test Item Value Reference Range Interpretation Comments Platelet (test code = Platelet) 271 133-450 [facility] CenterDqzllqjKQVAXIQPBS5870-09-17 16:57:00 Test Item Value Reference Range Interpretation Comments WBC (test code = WBC) 7.3 3.7-10.4 [facility] CenterJbppmquVJDYFWJASD6060-66-92 16:57:00 Test Item Value Reference Range Interpretation Comments RBC (test code = RBC) 5.14 4.20-5.40 [facility] CenterKlonmsbKSDZBZDYDE8885-17-88 16:57:00 Test Item Value Reference Range Interpretation Comments MCV (test code = MCV) 77.9 80.0-98.0 [facility] CenterEhiogcuMTAILMBKVY9601-49-62 16:57:00 Test Item Value Reference Range Interpretation Comments MCH (test code = MCH) 23.9 pg 27.0-31.0 [facility] CenterVjyqwauETDONZRARY9838-39-89 16:57:00 Test Item Value Reference Range Interpretation Comments MCHC (test code = MCHC) 30.7 32.0-36.0 [facility] CenterNlrznnhMKEWIXIHOQ7940-13-67 16:57:00 Test Item Value Reference Range Interpretation Comments Hct (test code = Hct) 40.1 36.0-48.0 [facility] CenterTsmarbmNRSIPXHSYD5229-23-69 16:57:00 Test Item Value Reference Range Interpretation Comments Hgb (test code = Hgb) 12.3 12.0-16.0 [facility]2015-12-18 10:58:00 Test Item Value Reference Range Interpretation Comments eGFR (test code = eGFR) 126 [facility]2015-12-18 10:58:00 Test Item Value Reference Range Interpretation Comments AST (test code = AST) 29 See_Comment [Auto mated message] The system which ge nerated this result transmit arvind reference range : <=37. The reference range was not used to interpr et this result as mario l/abnormal. [facility]2015-12-18 10:58:00 Test Item Value Reference Range Interpretation Comments Alk Phos (test code = Alk Phos) 86 39-136 [facility]2015-12-18 10:58:00 Test Item Value Reference Range Interpretation Comments Bili Total (test code = Bili Total) 0.3 0.2-1.3 [facility]2015-12-18 10:58:00 Test Item Value Reference Range Interpretation Comments ALT (test code = ALT) 50 See_Comment [Auto mated message] The system which ge nerated this result transmit arvind reference range : <=65. The reference range was not used to interpr et this result as mario l/abnormal. [facility]2015-12-18 10:58:00 Test Item Value Reference Range Interpretation Comments Sodium Lvl (test code = Sodium Lvl) 136 135-145 [facility]2015-12-18 10:58:00 Test Item Value Reference Range Interpretation Comments Potassium Lvl (test code = Potassium 4.0 3.5-5.1 Lvl) [facility]2015-12-18 10:58:00 Test Item Value Reference Range Interpretation Comments Creatinine Lvl (test code = Creatinine 0.62 0.50-1.40 Lvl) [facility]2015-12-18 10:58:00 Test Item Value Reference Range Interpretation Comments Glucose Lvl (test code = Glucose Lvl) 101 70-99 [facility]2015-12-18 10:58:00 Test Item Value Reference Range Interpretation Comments BUN (test code = BUN) 5 7-22 [facility]2015-12-18 10:58:00 Test Item Value Reference Range Interpretation Comments Total Protein (test code = Total 5.8 6.4-8.4 Protein) [facility]2015-12-18 10:58:00 Test Item Value Reference Range Interpretation Comments Albumin Lvl (test code = Albumin Lvl) 3.2 3.5-5.0 [facility]2015-12-18 10:58:00 Test Item Value Reference Range Interpretation Comments Chloride Lvl (test code = Chloride Lvl) 100 95-109 [facility]2015-12-18 10:58:00 Test Item Value Reference Range Interpretation Comments Calcium Lvl (test code = Calcium Lvl) 8.6 8.5-10.5 [facility]2015-12-18 10:58:00 Test Item Value Reference Range Interpretation Comments CO2 (test code = CO2) 27 24-32 [facility]2015-12-18 10:58:00 Test Item Value Reference Range Interpretation Comments B/C Ratio (test code = B/C Ratio) 8 6-25 [facility]2015-12-18 10:58:00 Test Item Value Reference Range Interpretation Comments Globulin (test code = Globulin) 2.6 2.0-4.0 [facility]2015-12-18 10:58:00 Test Item Value Reference Range Interpretation Comments A/G Ratio (test code = A/G Ratio) 1.2 0.7-1.6 [facility]2015-12-18 10:58:00 Test Item Value Reference Range Interpretation Comments AGAP (test code = AGAP) 13.0 10.0-20.0 [facility] CenterIxqobalTIIFIMTKQD4253-48-73 10:58:00 Test Item Value Reference Range Interpretation Comments Segs (test code = Segs) 74.2 45.0-75.0 [facility] CenterSkwwlbeSDBNLWFFDW5585-96-11 10:58:00 Test Item Value Reference Range Interpretation Comments Lymphocytes (test code = Lymphocytes) 18.3 20.0-40.0 [facility] CenterEsqolwrOWJZIRWHQX4318-28-00 10:58:00 Test Item Value Reference Range Interpretation Comments Monocytes (test code = Monocytes) 7.0 2.0-12.0 [facility] CenterOgkjjokYSVTEBBQHN4819-55-49 10:58:00 Test Item Value Reference Range Interpretation Comments Basophils (test code = 0.3 See_Comment [Aut omated message] The Basophils) system which ge nerated this result tra nsmitted reference range : <=1.0. The reference r kat was not used to int erpret this result as normal/abnormal . [facility] CenterYslnujjEZIILBEEYN7016-08-05 10:58:00 Test Item Value Reference Range Interpretation Comments Segs-Bands # (test code = Segs-Bands #) 8.1 1.5-8.1 [facility] CenterRclwgwlUXNCSIDMPF6564-22-45 10:58:00 Test Item Value Reference Range Interpretation Comments Eosinophils (test code = 0.2 See_Comment [A utomated message] The Eosinophils) system which ge nerated this result tra nsmitted reference range : <=4.0. The reference r kat was not used to int erpret this result as normal/abnormal . [facility] CenterBvlrsfmWVEKGEBKOB2987-27-51 10:58:00 Test Item Value Reference Range Interpretation Comments Monocytes # (test code 0.8 See_Comment [Aut omated message] The = Monocytes #) system which generated this result tra nsmitted reference range : <=0.8. The reference r kat was not used to int erpret this result as normal/abnormal . [facility] CenterOevlclvOYTIQZVGRN1654-16-66 10:58:00 Test Item Value Reference Range Interpretation Comments Lymphocytes # (test code = Lymphocytes 2.0 1.0-5.5 #) [facility] CenterAxdhrfiZDMINSBIQO9970-41-21 10:58:00 Test Item Value Reference Range Interpretation Comments Microcyte (test code = 1+ *ABN*(08/16/15 Microcyte) 4:58 AM) [facility] CenterGfdhvtnCSZESTDWAB8248-41-54 10:58:00 Test Item Value Reference Range Interpretation Comments MPV (test code = MPV) 8.9 7.4-10.4 [facility] CenterJehhydwRJFRUZYNXK3612-15-00 10:58:00 Test Item Value Reference Range Interpretation Comments MCV (test code = MCV) 77.3 80.0-98.0 [facility] CenterPyoeckhOWOGRYLFWT0181-52-98 10:58:00 Test Item Value Reference Range Interpretation Comments Hgb (test code = Hgb) 11.9 12.0-16.0 [facility] CenterPsuasjkWOBOZDJFCF5712-77-62 10:58:00 Test Item Value Reference Range Interpretation Comments Hct (test code = Hct) 37.5 36.0-48.0 [facility] CenterOnwnueyHKUJKFBIVR9712-06-27 10:58:00 Test Item Value Reference Range Interpretation Comments MCH (test code = MCH) 24.5 pg 27.0-31.0 [facility] CenterVmnjuhlCQNCRTNQKC9238-24-93 10:58:00 Test Item Value Reference Range Interpretation Comments RBC (test code = RBC) 4.85 4.20-5.40 [facility] CenterGoqjvhdABPXEEXIIC6288-53-17 10:58:00 Test Item Value Reference Range Interpretation Comments WBC (test code = WBC) 10.9 3.7-10.4 [facility] CenterAqqwfleAIFAILXBBN0070-36-19 10:58:00 Test Item Value Reference Range Interpretation Comments RDW (test code = RDW) 15.9 11.5-14.5 [facility] CenterUjlrwbiXQWOTIFFWB4306-32-97 10:58:00 Test Item Value Reference Range Interpretation Comments MCHC (test code = MCHC) 31.7 32.0-36.0 [facility] CenterZxeefefBINEOZRYCS5297-46-24 10:58:00 Test Item Value Reference Range Interpretation Comments Platelet (test code = Platelet) 242 133-450 [facility]2015-12-18 10:58:00 Test Item Value Reference Range Interpretation Comments eGFR (test code = eGFR) 126 [facility]2015-12-18 10:58:00 Test Item Value Reference Range Interpretation Comments AST (test code = AST) 29 See_Comment [Auto mated message] The system which ge nerated this result transmit arvind reference range : <=37. The reference range was not used to interpr et this result as mraio l/abnormal. [facility]2015-12-18 10:58:00 Test Item Value Reference Range Interpretation Comments Alk Phos (test code = Alk Phos) 86 39-136 [facility]2015-12-18 10:58:00 Test Item Value Reference Range Interpretation Comments Bili Total (test code = Bili Total) 0.3 0.2-1.3 [facility]2015-12-18 10:58:00 Test Item Value Reference Range Interpretation Comments ALT (test code = ALT) 50 See_Comment [Auto mated message] The system which ge nerated this result transmit arvind reference range : <=65. The reference range was not used to interpr et this result as mario l/abnormal. [facility]2015-12-18 10:58:00 Test Item Value Reference Range Interpretation Comments Sodium Lvl (test code = Sodium Lvl) 136 135-145 [facility]2015-12-18 10:58:00 Test Item Value Reference Range Interpretation Comments Potassium Lvl (test code = Potassium 4.0 3.5-5.1 Lvl) [facility]2015-12-18 10:58:00 Test Item Value Reference Range Interpretation Comments Creatinine Lvl (test code = Creatinine 0.62 0.50-1.40 Lvl) [facility]2015-12-18 10:58:00 Test Item Value Reference Range Interpretation Comments Glucose Lvl (test code = Glucose Lvl) 101 70-99 [facility]2015-12-18 10:58:00 Test Item Value Reference Range Interpretation Comments BUN (test code = BUN) 5 7-22 [facility]2015-12-18 10:58:00 Test Item Value Reference Range Interpretation Comments Total Protein (test code = Total 5.8 6.4-8.4 Protein) [facility]2015-12-18 10:58:00 Test Item Value Reference Range Interpretation Comments Albumin Lvl (test code = Albumin Lvl) 3.2 3.5-5.0 [facility]2015-12-18 10:58:00 Test Item Value Reference Range Interpretation Comments Chloride Lvl (test code = Chloride Lvl) 100 95-109 [facility]2015-12-18 10:58:00 Test Item Value Reference Range Interpretation Comments Calcium Lvl (test code = Calcium Lvl) 8.6 8.5-10.5 [facility]2015-12-18 10:58:00 Test Item Value Reference Range Interpretation Comments CO2 (test code = CO2) 27 24-32 [facility]2015-12-18 10:58:00 Test Item Value Reference Range Interpretation Comments B/C Ratio (test code = B/C Ratio) 8 6-25 [facility]2015-12-18 10:58:00 Test Item Value Reference Range Interpretation Comments Globulin (test code = Globulin) 2.6 2.0-4.0 [facility]2015-12-18 10:58:00 Test Item Value Reference Range Interpretation Comments A/G Ratio (test code = A/G Ratio) 1.2 0.7-1.6 [facility]2015-12-18 10:58:00 Test Item Value Reference Range Interpretation Comments AGAP (test code = AGAP) 13.0 10.0-20.0 [facility] CenterYnzbznbDPYXTZBOFA2162-84-54 10:58:00 Test Item Value Reference Range Interpretation Comments Segs (test code = Segs) 74.2 45.0-75.0 [facility] CenterMjzsaveSIEHEUOGAL8590-67-17 10:58:00 Test Item Value Reference Range Interpretation Comments Lymphocytes (test code = Lymphocytes) 18.3 20.0-40.0 [facility] CenterUzriubyJEDEYQLIPN8830-83-97 10:58:00 Test Item Value Reference Range Interpretation Comments Monocytes (test code = Monocytes) 7.0 2.0-12.0 [facility] CenterMlrsshzDPJTESGOGU8340-30-95 10:58:00 Test Item Value Reference Range Interpretation Comments Basophils (test code = 0.3 See_Comment [Aut omated message] The Basophils) system which ge nerated this result tra nsmitted reference range : <=1.0. The reference r kat was not used to int erpret this result as normal/abnormal . [facility] CenterObjpioeBYVJICXTPP3625-20-68 10:58:00 Test Item Value Reference Range Interpretation Comments Segs-Bands # (test code = Segs-Bands #) 8.1 1.5-8.1 [facility] CenterOoyjbnvMGEZPHJKWL8841-38-41 10:58:00 Test Item Value Reference Range Interpretation Comments Eosinophils (test code = 0.2 See_Comment [A utomated message] The Eosinophils) system which ge nerated this result tra nsmitted reference range : <=4.0. The reference r kat was not used to int erpret this result as normal/abnormal . [facility] CenterKgkaderVUNAQBZTHF2348-28-83 10:58:00 Test Item Value Reference Range Interpretation Comments Monocytes # (test code 0.8 See_Comment [Aut omated message] The = Monocytes #) system which generated this result tra nsmitted reference range : <=0.8. The reference r kat was not used to int erpret this result as normal/abnormal . [facility] CenterYnlzxniCVHUAUTQQD5766-21-61 10:58:00 Test Item Value Reference Range Interpretation Comments Lymphocytes # (test code = Lymphocytes 2.0 1.0-5.5 #) [facility] CenterZmzizieRDALLXLZNH8496-62-38 10:58:00 Test Item Value Reference Range Interpretation Comments Microcyte (test code = 1+ *ABN*(08/16/15 Microcyte) 4:58 AM) [facility] CenterXzdlclgCKSCOPULHO7028-86-63 10:58:00 Test Item Value Reference Range Interpretation Comments MPV (test code = MPV) 8.9 7.4-10.4 [facility] CenterCbcyijrLQGJEHLPMK2446-22-64 10:58:00 Test Item Value Reference Range Interpretation Comments MCV (test code = MCV) 77.3 80.0-98.0 [facility] CenterSqqnbzhMFJEKLWMIJ0043-20-75 10:58:00 Test Item Value Reference Range Interpretation Comments Hgb (test code = Hgb) 11.9 12.0-16.0 [facility] CenterJlxnriyPIUKJWMCDT3578-40-80 10:58:00 Test Item Value Reference Range Interpretation Comments Hct (test code = Hct) 37.5 36.0-48.0 [facility] CenterTiexacuDNLHUOLXXT2446-66-05 10:58:00 Test Item Value Reference Range Interpretation Comments MCH (test code = MCH) 24.5 pg 27.0-31.0 [facility] CenterIrtpdozNGBODVBDCU6195-25-82 10:58:00 Test Item Value Reference Range Interpretation Comments RBC (test code = RBC) 4.85 4.20-5.40 [facility] CenterIktbiomWKXVNGLJPY3972-68-94 10:58:00 Test Item Value Reference Range Interpretation Comments WBC (test code = WBC) 10.9 3.7-10.4 [facility] CenterFypurwdYGUIVHCQOD7389-14-31 10:58:00 Test Item Value Reference Range Interpretation Comments RDW (test code = RDW) 15.9 11.5-14.5 [facility] CenterMtbvaoqWRZQZQFNME0032-42-69 10:58:00 Test Item Value Reference Range Interpretation Comments MCHC (test code = MCHC) 31.7 32.0-36.0 [facility] CenterPipretnHOHPCIAJMU8208-19-25 10:58:00 Test Item Value Reference Range Interpretation Comments Platelet (test code = Platelet) 242 133-450 [facility]2015-12-14 15:29:00 Test Item Value Reference Range Interpretation Comments eGFR (test code = eGFR) 101 [facility] GQSZC9530-06-85 15:29:00 Test Item Value Reference Range Interpretation Comments Creatinine Lvl (test code = Creatinine 0.81 0.50-1.40 Lvl) [facility]2015-12-14 15:29:00 Test Item Value Reference Range Interpretation Comments CO2 (test code = CO2) 27 24-32 [place] 502385-12-14 15:29:00 Test Item Value Reference Range Interpretation Comments Calcium Lvl (test code = Calcium Lvl) 9.7 8.5-10.5 [facility]2015-12-14 15:29:00 Test Item Value Reference Range Interpretation Comments Chloride Lvl (test code = Chloride Lvl) 100 95-109 [facility]2015-12-14 15:29:00 Test Item Value Reference Range Interpretation Comments BUN (test code = BUN) 13 7-22 [facility]2015-12-14 15:29:00 Test Item Value Reference Range Interpretation Comments Glucose Lvl (test code = Glucose Lvl) 89 70-99 [facility]2015-12-14 15:29:00 Test Item Value Reference Range Interpretation Comments Potassium Lvl (test code = Potassium 4.2 3.5-5.1 Lvl) [facility]2015-12-14 15:29:00 Test Item Value Reference Range Interpretation Comments Sodium Lvl (test code = Sodium Lvl) 134 135-145 [facility]2015-12-14 15:29:00 Test Item Value Reference Range Interpretation Comments AGAP (test code = AGAP) 11.2 10.0-20.0 [facility] CenterXeakgatZUULMVTRRI7906-44-12 15:29:00 Test Item Value Reference Range Interpretation Comments MPV (test code = MPV) 9.2 7.4-10.4 [facility] CenterZrtaxryZVYFXBVUAU2681-74-35 15:29:00 Test Item Value Reference Range Interpretation Comments Platelet (test code = Platelet) 307 133-450 [facility] CenterBpxgczmQOZDMGRUTL8282-55-44 15:29:00 Test Item Value Reference Range Interpretation Comments MCH (test code = MCH) 24.3 pg 27.0-31.0 [facility] CenterSbluslyEJGFDJUNME7764-40-96 15:29:00 Test Item Value Reference Range Interpretation Comments RDW (test code = RDW) 15.7 11.5-14.5 [place] 849245-12-14 15:29:00 Test Item Value Reference Range Interpretation Comments MCHC (test code = MCHC) 31.2 32.0-36.0 [facility] CenterPaqlqiaHVAXCXFBGN8212-22-20 15:29:00 Test Item Value Reference Range Interpretation Comments MCV (test code = MCV) 78.0 80.0-98.0 [facility] CenterVdxvxlsJMCGNSSYQQ6625-83-19 15:29:00 Test Item Value Reference Range Interpretation Comments WBC (test code = WBC) 8.6 3.7-10.4 [facility] CenterKrdfsuwUIJQIMAEMH4204-20-51 15:29:00 Test Item Value Reference Range Interpretation Comments Hgb (test code = Hgb) 13.2 12.0-16.0 [facility] CenterSfpihkxHKQTWUTNFI1885-06-80 15:29:00 Test Item Value Reference Range Interpretation Comments RBC (test code = RBC) 5.41 4.20-5.40 [facility] CenterBxbgiapDITBGCPPSO3845-44-33 15:29:00 Test Item Value Reference Range Interpretation Comments Hct (test code = Hct) 42.1 36.0-48.0 [facility] CenterBsvpncjKANGUJJEBO8673-63-40 15:29:00 Test Item Value Reference Range Interpretation Comments Lymphocytes # (test code = Lymphocytes 3.2 1.0-5.5 #) [facility] CenterUxdfyoyAPSSZGDRHY3538-14-66 15:29:00 Test Item Value Reference Range Interpretation Comments Eosinophils # (test code 0.1 See_Comment [A utomated message] The = Eosinophils #) system whic h generated this result tra nsmitted reference range : <=0.5. The reference r kat was not used to int erpret this result as normal/abnormal . [facility] CenterRytmayfNMOONHLIDG8801-36-80 15:29:00 Test Item Value Reference Range Interpretation Comments Monocytes # (test code 0.8 See_Comment [Aut omated message] The = Monocytes #) system which generated this result tra nsmitted reference range : <=0.8. The reference r kat was not used to int erpret this result as normal/abnormal . [facility] CenterCuhtltwINPXONXTES0453-95-82 15:29:00 Test Item Value Reference Range Interpretation Comments Basophils (test code = 0.7 See_Comment [Aut omated message] The Basophils) system which ge nerated this result tra nsmitted reference range : <=1.0. The reference r kat was not used to int erpret this result as normal/abnormal . [facility]LP[facility]162[facility] 15:29:00 Test Item Value Reference Range Interpretation Comments Segs-Bands # (test code = Segs-Bands #) 4.4 1.5-8.1 [facility]WagqejuAHBZLMJZBF6135-33-47 15:29:00 Test Item Value Reference Range Interpretation Comments Eosinophils (test code = 1.2 See_Comment [A utomated message] The Eosinophils) system which ge nerated this result tra nsmitted reference range : <=4.0. The reference r kat was not used to int erpret this result as normal/abnormal . [facility]IbrkkeuESKKWKWPZM3756-90-22 15:29:00 Test Item Value Reference Range Interpretation Comments Lymphocytes (test code = Lymphocytes) 37.4 20.0-40.0 [facility]VvotumuXVWMAWZIAJ1617-11-82 15:29:00 Test Item Value Reference Range Interpretation Comments Monocytes (test code = Monocytes) 8.9 2.0-12.0 [facility] [facility]L5244-15-92 15:29:00 Test Item Value Reference Range Interpretation Comments Segs (test code = Segs) 51.8 45.0-75.0 [facility]GDV5169-63-36 15:29:00 Test Item Value Reference Range Interpretation Comments Microcyte (test code = 1+ *ABN*(08/12/15 Microcyte) 9:29 AM) [facility]RxlmzvrVYQJSGAZHZ3470-53-98 15:29:00 Test Item Value Reference Range Interpretation Comments Basophils # (test code 0.1 See_Comment [Aut omated message] The = Basophils #) system which generated this result tra nsmitted reference range : <=0.2. The reference r kat was not used to int erpret this result as normal/abnormal . [facility] [id number] 15:29:00 Test Item Value Reference Range Interpretation Comments U Preg (test code = U Negative (08/12/15 9:29 Preg) AM) [facility] [id number] 15:29:00 Test Item Value Reference Range Interpretation Comments eGFR (test code = eGFR) 101 [facility] [id number] 15:29:00 Test Item Value Reference Range Interpretation Comments Creatinine Lvl (test code = Creatinine 0.81 0.50-1.40 Lvl) [facility]2015-12-14 15:29:00 Test Item Value Reference Range Interpretation Comments CO2 (test code = CO2) 27 24-32 [place] [id number] 15:29:00 Test Item Value Reference Range Interpretation Comments Calcium Lvl (test code = Calcium Lvl) 9.7 8.5-10.5 [facility]2015-12-14 15:29:00 Test Item Value Reference Range Interpretation Comments Chloride Lvl (test code = Chloride Lvl) 100 95-109 [facility]2015-12-14 15:29:00 Test Item Value Reference Range Interpretation Comments BUN (test code = BUN) 13 7-22 [facility]2015-12-14 15:29:00 Test Item Value Reference Range Interpretation Comments Glucose Lvl (test code = Glucose Lvl) 89 70-99 [facility]2015-12-14 15:29:00 Test Item Value Reference Range Interpretation Comments Potassium Lvl (test code = Potassium 4.2 3.5-5.1 Lvl) [facility]2015-12-14 15:29:00 Test Item Value Reference Range Interpretation Comments Sodium Lvl (test code = Sodium Lvl) 134 135-145 [facility]2015-12-14 15:29:00 Test Item Value Reference Range Interpretation Comments AGAP (test code = AGAP) 11.2 10.0-20.0 [facility]TwlqinkJROLNWRXRN4685-48-50 15:29:00 Test Item Value Reference Range Interpretation Comments MPV (test code = MPV) 9.2 7.4-10.4 [facility] CenterKgodvalNQAOCUEWFW9055-06-98 15:29:00 Test Item Value Reference Range Interpretation Comments Platelet (test code = Platelet) 307 133-450 [facility] CenterJafnuupGJMFRPYYUT3724-78-87 15:29:00 Test Item Value Reference Range Interpretation Comments MCH (test code = MCH) 24.3 pg 27.0-31.0 [facility] CenterMdzwkoeEOSWCFTFJF5815-58-89 15:29:00 Test Item Value Reference Range Interpretation Comments RDW (test code = RDW) 15.7 11.5-14.5 [facility] CenterOchxtvhHRKPJOMQLE9360-80-99 15:29:00 Test Item Value Reference Range Interpretation Comments MCHC (test code = MCHC) 31.2 32.0-36.0 [facility] CenterCaapvtfBGBTZECWNF7518-00-24 15:29:00 Test Item Value Reference Range Interpretation Comments MCV (test code = MCV) 78.0 80.0-98.0 [facility] CenterUqsbrmcKRONNDARSZ8926-78-38 15:29:00 Test Item Value Reference Range Interpretation Comments WBC (test code = WBC) 8.6 3.7-10.4 [facility] CenterQnntotjMINCEWJKQY1114-56-74 15:29:00 Test Item Value Reference Range Interpretation Comments Hgb (test code = Hgb) 13.2 12.0-16.0 [facility] CenterBdyrazsFXEXMHLIUC0671-98-68 15:29:00 Test Item Value Reference Range Interpretation Comments RBC (test code = RBC) 5.41 4.20-5.40 [facility] CenterNbmttqxRHUIIEIZFX2102-77-92 15:29:00 Test Item Value Reference Range Interpretation Comments Hct (test code = Hct) 42.1 36.0-48.0 [facility] CenterNnpimgmMEISGOYOFG7358-66-39 15:29:00 Test Item Value Reference Range Interpretation Comments Lymphocytes # (test code = Lymphocytes 3.2 1.0-5.5 #) [facility] CenterRndqvgxPWDSZRMVDA2768-21-69 15:29:00 Test Item Value Reference Range Interpretation Comments Eosinophils # (test code 0.1 See_Comment [A utomated message] The = Eosinophils #) system whic h generated this result tra nsmitted reference range : <=0.5. The reference r kat was not used to int erpret this result as normal/abnormal . [facility] CenterRrhmkqeQVSEQSLVZE6831-98-13 15:29:00 Test Item Value Reference Range Interpretation Comments Monocytes # (test code 0.8 See_Comment [Aut omated message] The = Monocytes #) system which generated this result tra nsmitted reference range : <=0.8. The reference r kat was not used to int erpret this result as normal/abnormal . [facility] CenterCpxscgtSYMCWRRWJX6763-67-22 15:29:00 Test Item Value Reference Range Interpretation Comments Basophils (test code = 0.7 See_Comment [Aut omated message] The Basophils) system which ge nerated this result tra nsmitted reference range : <=1.0. The reference r kat was not used to int erpret this result as normal/abnormal . [facility] CenterVliflrpNYUXVAHTHF6280-16-69 15:29:00 Test Item Value Reference Range Interpretation Comments Segs-Bands # (test code = Segs-Bands #) 4.4 1.5-8.1 [facility] CenterKkzvkskOTBAGDQREN8968-10-85 15:29:00 Test Item Value Reference Range Interpretation Comments Eosinophils (test code = 1.2 See_Comment [A utomated message] The Eosinophils) system which ge nerated this result tra nsmitted reference range : <=4.0. The reference r kat was not used to int erpret this result as normal/abnormal . [facility] CenterRjbrczyTOOQUSMREW7017-20-40 15:29:00 Test Item Value Reference Range Interpretation Comments Lymphocytes (test code = Lymphocytes) 37.4 20.0-40.0 [facility] CenterSzotjukFEFUMDWNWP6944-09-76 15:29:00 Test Item Value Reference Range Interpretation Comments Monocytes (test code = Monocytes) 8.9 2.0-12.0 [facility] CenterRkovgyrXLPCZURIHX0046-43-77 15:29:00 Test Item Value Reference Range Interpretation Comments Segs (test code = Segs) 51.8 45.0-75.0 [facility] CenterTqapbddFHSGZOPFHL5584-38-06 15:29:00 Test Item Value Reference Range Interpretation Comments Microcyte (test code = 1+ *ABN*(08/12/15 Microcyte) 9:29 AM) [facility] CenterXkqqhwvVRVPVRDPMC8154-73-91 15:29:00 Test Item Value Reference Range Interpretation Comments Basophils # (test code 0.1 See_Comment [Aut omated message] The = Basophils #) system which generated this result tra nsmitted reference range : <=0.2. The reference r kat was not used to int erpret this result as normal/abnormal . [facility]2015-12-14 15:29:00 Test Item Value Reference Range Interpretation Comments U Preg (test code = U Negative (08/12/15 9:29 Preg) AM) [facility]2015-10-26 15:15:00 Test Item Value Reference Range Interpretation Comments U Preg (test code = U Negative (06/24/15 10:15 Preg) AM) [facility]2015-10-26 15:15:00 Test Item Value Reference Range Interpretation Comments U Preg (test code = U Negative (06/24/15 10:15 Preg) AM) [facility]2015-10-09 22:58:56 Test Item Value Reference Range Interpretation Comments U Cotinine Lvl (test Negative *NA*(06/07/15 code = U Cotinine Lvl) 5:58 PM) [facility]2015-10-09 22:58:56 Test Item Value Reference Range Interpretation Comments U Preg (test code = U Negative (06/07/15 5:58 Preg) PM) [facility]2015-10-09 22:58:56 Test Item Value Reference Range Interpretation Comments U Cotinine Lvl (test Negative *NA*(06/07/15 code = U Cotinine Lvl) 5:58 PM) [facility]2015-10-09 22:58:56 Test Item Value Reference Range Interpretation Comments U Preg (test code = U Negative (06/07/15 5:58 Preg) PM) [facility]2015-10-09 22:53:19 Test Item Value Reference Range Interpretation Comments Transferrin (test code = Transferrin) 256 212-360 [facility]2015-10-09 22:53:19 Test Item Value Reference Range Interpretation Comments Vitamin B12 Lvl (test code = Vitamin [phone] B12 Lvl) [facility]2015-10-09 22:53:19 Test Item Value Reference Range Interpretation Comments eGFR (test code = eGFR) 70 [facility]2015-10-09 22:53:19 Test Item Value Reference Range Interpretation Comments Glucose Lvl (test code = Glucose Lvl) 103 70-99 [facility]2015-10-09 22:53:19 Test Item Value Reference Range Interpretation Comments Albumin Lvl (test code = Albumin Lvl) 3.6 3.5-5.0 [facility]2015-10-09 22:53:19 Test Item Value Reference Range Interpretation Comments CO2 (test code = CO2) 24 24-32 [facility]2015-10-09 22:53:19 Test Item Value Reference Range Interpretation Comments Total Protein (test code = Total 7.2 6.4-8.4 Protein) [facility]2015-10-09 22:53:19 Test Item Value Reference Range Interpretation Comments Creatinine Lvl (test code = Creatinine 1.1 0.5-1.4 Lvl) [facility]2015-10-09 22:53:19 Test Item Value Reference Range Interpretation Comments BUN (test code = BUN) 14 7-22 [facility]2015-10-09 22:53:19 Test Item Value Reference Range Interpretation Comments AST (test code = AST) 12 See_Comment [Auto mated message] The system which ge nerated this result transmit arvind reference range : <=37. The reference range was not used to interpr et this result as mario l/abnormal. [facility]2015-10-09 22:53:19 Test Item Value Reference Range Interpretation Comments ALT (test code = ALT) 41 See_Comment [Auto mated message] The system which ge nerated this result transmit arvind reference range : <=65. The reference range was not used to interpr et this result as mario l/abnormal. [facility]2015-10-09 22:53:19 Test Item Value Reference Range Interpretation Comments Alk Phos (test code = Alk Phos) 100 39-136 [facility]2015-10-09 22:53:19 Test Item Value Reference Range Interpretation Comments Bili Total (test code = Bili Total) 0.2 0.2-1.3 [facility]2015-10-09 22:53:19 Test Item Value Reference Range Interpretation Comments Potassium Lvl (test code = Potassium 3.9 3.5-5.1 Lvl) [facility]2015-10-09 22:53:19 Test Item Value Reference Range Interpretation Comments Sodium Lvl (test code = Sodium Lvl) 141 135-145 [facility]2015-10-09 22:53:19 Test Item Value Reference Range Interpretation Comments Calcium Lvl (test code = Calcium Lvl) 9.0 8.5-10.5 [facility]2015-10-09 22:53:19 Test Item Value Reference Range Interpretation Comments Chloride Lvl (test code = Chloride Lvl) 109 95-109 [facility]2015-10-09 22:53:19 Test Item Value Reference Range Interpretation Comments AGAP (test code = AGAP) 11.9 10.0-20.0 [facility]2015-10-09 22:53:19 Test Item Value Reference Range Interpretation Comments A/G Ratio (test code = A/G Ratio) 1.0 0.7-1.6 [facility]2015-10-09 22:53:19 Test Item Value Reference Range Interpretation Comments B/C Ratio (test code = B/C Ratio) 13 6-25 [facility]2015-10-09 22:53:19 Test Item Value Reference Range Interpretation Comments Globulin (test code = Globulin) 3.6 2.0-4.0 [facility]2015-10-09 22:53:19 Test Item Value Reference Range Interpretation Comments Magnesium Lvl (test code = Magnesium 1.8 1.8-2.4 Lvl) [facility] CenterBueqjgbVYTDMMMILY0184-02-88 22:53:19 Test Item Value Reference Range Interpretation Comments Segs (test code = Segs) 57.5 45.0-75.0 [facility] CenterPqlvxjuLIBXSLJXCO9250-45-41 22:53:19 Test Item Value Reference Range Interpretation Comments Monocytes (test code = Monocytes) 7.6 2.0-12.0 [facility] CenterFmkpcaqUHXLKYREWH8133-32-53 22:53:19 Test Item Value Reference Range Interpretation Comments Basophils (test code = 1.0 See_Comment [Aut omated message] The Basophils) system which ge nerated this result tra nsmitted reference range : <=1.0. The reference r kat was not used to int erpret this result as normal/abnormal . [facility] CenterCnztagoOQGCMKAFCE9159-45-16 22:53:19 Test Item Value Reference Range Interpretation Comments Lymphocytes (test code = Lymphocytes) 32.9 20.0-40.0 [facility] CenterWtzamlfFEFLFMUQIU4854-11-40 22:53:19 Test Item Value Reference Range Interpretation Comments Eosinophils (test code = 1.0 See_Comment [A utomated message] The Eosinophils) system which ge nerated this result tra nsmitted reference range : <=4.0. The reference r kat was not used to int erpret this result as normal/abnormal . [facility] CenterZfvjlcrEUMEMQKKRA5284-72-18 22:53:19 Test Item Value Reference Range Interpretation Comments Lymphocytes # (test code = Lymphocytes 3.8 1.0-5.5 #) [facility] CenterNtlqyxeCAFQXETZNA7240-01-27 22:53:19 Test Item Value Reference Range Interpretation Comments Segs-Bands # (test code = Segs-Bands #) 6.6 1.5-8.1 [facility] CenterPugagweKARUWCNXPD1798-92-35 22:53:19 Test Item Value Reference Range Interpretation Comments Eosinophils # (test code 0.1 See_Comment [A utomated message] The = Eosinophils #) system whic h generated this result tra nsmitted reference range : <=0.5. The reference r kat was not used to int erpret this result as normal/abnormal . [facility] CenterXyacgduYYFDJHZXOT5446-42-61 22:53:19 Test Item Value Reference Range Interpretation Comments Monocytes # (test code 0.9 See_Comment [Aut omated message] The = Monocytes #) system which generated this result tra nsmitted reference range : <=0.8. The reference r kat was not used to int erpret this result as normal/abnormal . [facility] CenterXzwrebyKZSUDZIJQN9767-83-11 22:53:19 Test Item Value Reference Range Interpretation Comments Microcyte (test code = 1+ *ABN*(06/07/15 Microcyte) 5:53 PM) [facility] CenterNacdxcaJHCQRCDDRS9929-52-13 22:53:19 Test Item Value Reference Range Interpretation Comments Basophils # (test code 0.1 See_Comment [Aut omated message] The = Basophils #) system which generated this result tra nsmitted reference range : <=0.2. The reference r kat was not used to int erpret this result as normal/abnormal . [facility] CenterLhmjgzmLKTBCSKCCS2436-84-58 22:53:19 Test Item Value Reference Range Interpretation Comments RBC (test code = RBC) 5.23 4.20-5.40 [facility] CenterZrxsfkjYIVJILGDRC9428-96-99 22:53:19 Test Item Value Reference Range Interpretation Comments Platelet (test code = Platelet) 241 133-450 [facility] CenterRowqtvtCFWFQUQHVA5216-02-41 22:53:19 Test Item Value Reference Range Interpretation Comments MPV (test code = MPV) 9.3 7.4-10.4 [facility] CenterUduqrhgRWMAKSBVVO3106-79-35 22:53:19 Test Item Value Reference Range Interpretation Comments RDW (test code = RDW) 16.5 11.5-14.5 [facility] CenterUdrhkajOXJPEYVARO4960-32-31 22:53:19 Test Item Value Reference Range Interpretation Comments Hct (test code = Hct) 41.0 36.0-48.0 [facility] CenterUsctgacHFTAEUSPXZ1423-12-99 22:53:19 Test Item Value Reference Range Interpretation Comments Hgb (test code = Hgb) 12.7 12.0-16.0 [facility] CenterCgkoumcPGLHUFBMQY3480-25-19 22:53:19 Test Item Value Reference Range Interpretation Comments WBC (test code = WBC) 11.5 3.7-10.4 [facility] CenterJixwsloPIOOSIYRVF0343-79-74 22:53:19 Test Item Value Reference Range Interpretation Comments MCH (test code = MCH) 24.3 pg 27.0-31.0 [facility] CenterXpotvatSEZRFVZHYJ4892-20-48 22:53:19 Test Item Value Reference Range Interpretation Comments MCHC (test code = MCHC) 31.0 32.0-36.0 [facility] CenterJxgpmosIUBLGAZFPX3004-91-72 22:53:19 Test Item Value Reference Range Interpretation Comments MCV (test code = MCV) 78.4 80.0-98.0 [facility]THY[facility] UDTZL0747-08-95 22:53:19 Test Item Value Reference Range Interpretation Comments FTI (test code = FTI) 2.5 [facility]2015-10-09 22:53:19 Test Item Value Reference Range Interpretation Comments TSH (test code = TSH) 1.540 0.360-3.740 [facility] DFIIY7503-27-49 22:53:19 Test Item Value Reference Range Interpretation Comments T3 Uptake (test code = T3 Uptake) 31 31-39 [facility]THYDEKAL[facility]ITALXNGGI9253-27-00 22:53:19 Test Item Value Reference Range Interpretation Comments T4 (test code = T4) 8.0 4.7-13.3 [facility]2015-10-09 22:53:19 Test Item Value Reference Range Interpretation Comments Transferrin (test code = Transferrin) 256 212-360 [facility]2015-10-09 22:53:19 Test Item Value Reference Range Interpretation Comments Vitamin B12 Lvl (test code = Vitamin [phone] B12 Lvl) [facility]2015-10-09 22:53:19 Test Item Value Reference Range Interpretation Comments eGFR (test code = eGFR) 70 [facility]2015-10-09 22:53:19 Test Item Value Reference Range Interpretation Comments Glucose Lvl (test code = Glucose Lvl) 103 70-99 [place] 502385-10-09 22:53:19 Test Item Value Reference Range Interpretation Comments Albumin Lvl (test code = Albumin Lvl) 3.6 3.5-5.0 [facility]2015-10-09 22:53:19 Test Item Value Reference Range Interpretation Comments CO2 (test code = CO2) 24 24-32 [facility]2015-10-09 22:53:19 Test Item Value Reference Range Interpretation Comments Total Protein (test code = Total 7.2 6.4-8.4 Protein) [facility]2015-10-09 22:53:19 Test Item Value Reference Range Interpretation Comments Creatinine Lvl (test code = Creatinine 1.1 0.5-1.4 Lvl) [facility]2015-10-09 22:53:19 Test Item Value Reference Range Interpretation Comments BUN (test code = BUN) 14 7-22 [facility]2015-10-09 22:53:19 Test Item Value Reference Range Interpretation Comments AST (test code = AST) 12 See_Comment [Auto mated message] The system which ge nerated this result transmit arvind reference range : <=37. The reference range was not used to interpr et this result as mario l/abnormal. [facility]2015-10-09 22:53:19 Test Item Value Reference Range Interpretation Comments ALT (test code = ALT) 41 See_Comment [Auto mated message] The system which ge nerated this result transmit arvind reference range : <=65. The reference range was not used to interpr et this result as mario l/abnormal. [facility]2015-10-09 22:53:19 Test Item Value Reference Range Interpretation Comments Alk Phos (test code = Alk Phos) 100 39-136 [facility]2015-10-09 22:53:19 Test Item Value Reference Range Interpretation Comments Bili Total (test code = Bili Total) 0.2 0.2-1.3 [place] 502385-10-09 22:53:19 Test Item Value Reference Range Interpretation Comments Potassium Lvl (test code = Potassium 3.9 3.5-5.1 Lvl) [facility]2015-10-09 22:53:19 Test Item Value Reference Range Interpretation Comments Sodium Lvl (test code = Sodium Lvl) 141 135-145 [facility]2015-10-09 22:53:19 Test Item Value Reference Range Interpretation Comments Calcium Lvl (test code = Calcium Lvl) 9.0 8.5-10.5 [facility]2015-10-09 22:53:19 Test Item Value Reference Range Interpretation Comments Chloride Lvl (test code = Chloride Lvl) 109 95-109 [facility]2015-10-09 22:53:19 Test Item Value Reference Range Interpretation Comments AGAP (test code = AGAP) 11.9 10.0-20.0 [facility]2015-10-09 22:53:19 Test Item Value Reference Range Interpretation Comments A/G Ratio (test code = A/G Ratio) 1.0 0.7-1.6 [facility]2015-10-09 22:53:19 Test Item Value Reference Range Interpretation Comments B/C Ratio (test code = B/C Ratio) 13 6-25 [facility]2015-10-09 22:53:19 Test Item Value Reference Range Interpretation Comments Globulin (test code = Globulin) 3.6 2.0-4.0 [facility]2015-10-09 22:53:19 Test Item Value Reference Range Interpretation Comments Magnesium Lvl (test code = Magnesium 1.8 1.8-2.4 Lvl) [facility] CenterJvilzkqCJLHDEIGQB7873-69-05 22:53:19 Test Item Value Reference Range Interpretation Comments Segs (test code = Segs) 57.5 45.0-75.0 [facility] CenterJeazcadKBXZEJINOJ1863-55-99 22:53:19 Test Item Value Reference Range Interpretation Comments Monocytes (test code = Monocytes) 7.6 2.0-12.0 [facility] CenterVosymfrYLHSROOLLH5576-98-17 22:53:19 Test Item Value Reference Range Interpretation Comments Basophils (test code = 1.0 See_Comment [Aut omated message] The Basophils) system which ge nerated this result tra nsmitted reference range : <=1.0. The reference r kat was not used to int erpret this result as normal/abnormal . [facility] CenterItbikttPVEGYZWMZQ6339-11-89 22:53:19 Test Item Value Reference Range Interpretation Comments Lymphocytes (test code = Lymphocytes) 32.9 20.0-40.0 [facility] CenterJlgxpdnCMLIFWDOEI2111-98-44 22:53:19 Test Item Value Reference Range Interpretation Comments Eosinophils (test code = 1.0 See_Comment [A utomated message] The Eosinophils) system which ge nerated this result tra nsmitted reference range : <=4.0. The reference r kat was not used to int erpret this result as normal/abnormal . [facility] CenterKwoxcyfHHDXSAQPGU1824-44-59 22:53:19 Test Item Value Reference Range Interpretation Comments Lymphocytes # (test code = Lymphocytes 3.8 1.0-5.5 #) [facility] CenterJgrxpyaKTCGGZDMTK3417-94-28 22:53:19 Test Item Value Reference Range Interpretation Comments Segs-Bands # (test code = Segs-Bands #) 6.6 1.5-8.1 [facility] CenterAinxhrbPMWGWHWTPO4178-44-72 22:53:19 Test Item Value Reference Range Interpretation Comments Eosinophils # (test code 0.1 See_Comment [A utomated message] The = Eosinophils #) system wh h generated this result tra nsmitted reference range : <=0.5. The reference r kat was not used to int erpret this result as normal/abnormal . [facility] CenterJffvnssVDSITQFUMO7165-66-68 22:53:19 Test Item Value Reference Range Interpretation Comments Monocytes # (test code 0.9 See_Comment [Aut omated message] The = Monocytes #) system which generated this result tra nsmitted reference range : <=0.8. The reference r kat was not used to int erpret this result as normal/abnormal . [facility] CenterHcqiofiNUMLGXELNH2449-10-89 22:53:19 Test Item Value Reference Range Interpretation Comments Microcyte (test code = 1+ *ABN*(06/07/15 Microcyte) 5:53 PM) [facility] CenterPmpxfpnZGHXFQVTVO9565-48-28 22:53:19 Test Item Value Reference Range Interpretation Comments Basophils # (test code 0.1 See_Comment [Aut omated message] The = Basophils #) system which generated this result tra nsmitted reference range : <=0.2. The reference r kat was not used to int erpret this result as normal/abnormal . [id number] 22:53:19 Test Item Value Reference Range Interpretation Comments RBC (test code = RBC) 5.23 4.20-5.40 [facility] [id number] 22:53:19 Test Item Value Reference Range Interpretation Comments Platelet (test code = Platelet) 241 133-450 [facility] [id number] 22:53:19 Test Item Value Reference Range Interpretation Comments MPV (test code = MPV) 9.3 7.4-10.4 [facility] [id number] 22:53:19 Test Item Value Reference Range Interpretation Comments RDW (test code = RDW) 16.5 11.5-14.5 [facility] [id number] 22:53:19 Test Item Value Reference Range Interpretation Comments Hct (test code = Hct) 41.0 36.0-48.0 [facility] CenterHruqfixPEUHSIDYMD3067-12-44 22:53:19 Test Item Value Reference Range Interpretation Comments Hgb (test code = Hgb) 12.7 12.0-16.0 [facility] Cent[id number] 22:53:19 Test Item Value Reference Range Interpretation Comments WBC (test code = WBC) 11.5 3.7-10.4 [facility] [id number] 22:53:19 Test Item Value Reference Range Interpretation Comments MCH (test code = MCH) 24.3 pg 27.0-31.0 [facility] Cent[id number] 22:53:19 Test Item Value Reference Range Interpretation Comments MCHC (test code = MCHC) 31.0 32.0-36.0 [facility] [id number] 22:53:19 Test Item Value Reference Range Interpretation Comments MCV (test code = MCV) 78.4 80.0-98.0 [facility] [id number] 22:53:19 Test Item Value Reference Range Interpretation Comments FTI (test code = FTI) 2.5 [facility] [id number] 22:53:19 Test Item Value Reference Range Interpretation Comments TSH (test code = TSH) 1.540 0.360-3.740 [facility] [id number] 22:53:19 Test Item Value Reference Range Interpretation Comments T3 Uptake (test code = T3 Uptake) 31 31-39 [facility] [id number] 22:53:19 Test Item Value Reference Range Interpretation Comments T4 (test code = T4) 8.0 4.7-13.3 [facility]
[2022-10-17] MEDS ORDERED: ONDANSETRON 4 MG/2 ML VIAL ONE (22:23)
[2022-10-17] MEDS ORDERED: KETOROLAC 30 MG/ML INJ ONE (22:24)
[2022-10-17 22:34] LABS: Absolute Lymphocytes (CBC) 2.5 K/uL (0.7-4.9); Lymphocytes % 25.6 % (15.3-44.8); MCV 77.4 fL (80-100); MPV 8.8 fL (7.6-11.3)
[2022-10-17 22:47] LABS: Potassium 4.2 mmol/L (3.5-5.1)
--- NOTE | 2022-10-18 00:46 | EDPHYS ---
Physician Documentation [facility] Name: Kyra Bailey Age: 32 yrs Sex: Female : 1990 Arrival Date: 10/17/2022 Time: 21:28 Bed 6 Private MD: ED Physician Tiff Hurtado HPI: 10/18 00:05 This 32 yrs old Female presents to ER via Ambulatory with complaints of Pelvic Pain, kb Vaginal Bleeding. 00:05 The patient presents with pelvic pain, that is located in/on the left lower quadrant, kb vaginal bleeding that is moderate. Onset: The symptoms/episode began/occurred 2 week(s) ago. Modifying factors: The symptoms are alleviated by nothing, the symptoms are aggravated by nothing. Associated signs and symptoms: Pertinent positives: vaginal bleeding. Severity of symptoms: At their worst the symptoms were moderate, in the emergency department the symptoms are unchanged. The patient has experienced similar episodes in the past. The patient has not recently seen a physician. 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 - Social history:: Smoking status: Patient denies any tobacco usage or history of. ROS: 10/18 00:05 Constitutional: Negative for fever, chills, and weight loss. kb : Positive for pelvic pain, vaginal bleeding. All other systems are negative. Exam: 00:05 Constitutional: This is a well developed, well nourished patient who is awake, alert, kb and in no acute distress. Head/Face: Normocephalic, atraumatic. ENT: Moist Mucous membranes Cardiovascular: Regular rate and rhythm with a normal S1 and S2. No gallops, murmurs, or rubs. No pulse deficits. Respiratory: Respirations even and unlabored. No increased work of breathing. Talking in full sentences Skin: Warm, dry with normal turgor. Normal color. MS/ Extremity: Pulses equal, no cyanosis. Neurovascular intact. Full, normal range of motion. Neuro: Awake and alert, GCS 15, oriented to person, place, time, and situation. Moves all extremities. Normal gait. Psych: Awake, alert, with orientation to person, place and time. Behavior, mood, and affect are within normal limits. 00:05 Abdomen/GI: Inspection: abdomen appears normal, Bowel sounds: normal, Palpation: soft, in all quadrants, moderate abdominal tenderness, in the left lower quadrant. Vital Signs: 10/17 22:15 BP 155 / 111; Pulse 88; Resp 18 S; Temp 97.8(O); Pulse Ox 96% on R/A; Weight 141.97 kg as6 (R); Height 5 ft. 7 in. (170.18 cm) (R); Pain 10/10; 22:54 BP 157 / 99; Pulse 90; Resp 20; Pulse Ox 97% on R/A; Pain 4/10; mb9 23:43 BP 111 / 79; Pulse 76; Resp 18; Pulse Ox 98% on R/A; mb9 10/18 00:51 BP 120 / 77; Pulse 66; Resp 18 S; Pulse Ox 98% on R/A; as6 10/17 22:15 Body Mass Index 49.02 (141.97 kg, 170.18 cm) as6 MDM: 10/17 22:11 Patient medically screened. kb 10/18 00:12 Differential diagnosis: endometriosis, menorrhea, ovarian cyst, uterine fibroids. Data kb reviewed: vital signs, nurses notes. Counseling: I had a detailed discussion with the patient and/or guardian regarding: the historical points, exam findings, and any diagnostic results supporting the discharge/admit diagnosis, lab results, radiology results, the need for outpatient follow up, an OB/Gyne specialist, to return to the emergency department if symptoms worsen or persist or if there are any questions or concerns that arise at home. 00:19 ED course: Patient is a 32-year-old female with a history of ovarian cyst that presents kb for pain to the left pelvic area. States she has had vaginal bleeding for 2 weeks and has a known ovarian cyst on the left side that she believes is ruptured. States pain started yesterday and got worse today. On exam patient has mild tenderness to left pelvic area. Vitals within normal limits. Serum labs and ultrasound ordered.. 10/17 22:15 Order name: CBC with Diff kb 10/17 22:15 Order name: Basic Metabolic Panel kb 10/17 22:15 Order name: US Transvaginal Study (Probe) kb 10/17 22:36 Order name: CBC with Automated Diff; Complete Time: 22:45 EDMS 10/17 22:48 Order name: Basic Metabolic Panel; Complete Time: 22:52 EDMS 10/17 22:15 Order name: IV Start; Complete Time: 22:29 kb 10/17 22:52 Order name: Vital Signs; Complete Time: 23:32 kb Administered Medications: 10/17 22:29 Drug: Zofran (Ondansetron) 4 mg Route: IVP; Site: right antecubital; as6 10/18 00:53 Follow up: Response: No adverse reaction as6 10/17 22:29 Drug: Ketorolac 15 mg Route: IVP; Site: right antecubital; as6 10/18 00:53 Follow up: Response: No adverse reaction as6 Disposition Summary: 10/18/22 00:46 Discharge Ordered Location: Home kb Condition: Stable kb Diagnosis - Abnormal uterine and vaginal bleeding, unspecified kb Followup: kb - With: Emergency Department - When: As needed - Reason: Worsening of condition Followup: kb - With: Private Physician - When: 2 - 3 days - Reason: Recheck today's complaints, Continuance of care, Re-evaluation by your physician Discharge Instructions: - Discharge Summary Sheet kb - Abnormal Uterine Bleeding, Tacc-xo-Mdax kb Forms: - Medication Reconciliation Form kb - Thank You Letter kb - Antibiotic Education kb - Prescription Opioid Use kb - Work release form tw5 Signatures: Dispatcher [employer] Josephine Valle, Ace Talamantes, RN RN as6
--- NOTE | 2022-10-18 00:46 | ER ---
Nurse's Notes [facility] Name: Kyra Bailey Age: 32 yrs Sex: Female : 1990 Arrival Date: 10/17/2022 Time: 21:28 Bed 6 Private MD: Diagnosis: Abnormal uterine and vaginal bleeding, unspecified Presentation: 10/17 22:12 Chief complaint: Patient states: "I'm bleeding really bad and I think I busted my cyst as6 open". Coronavirus screen: At this time, the client does not indicate any symptoms associated with coronavirus-19. Ebola Screen: No symptoms or risks identified at this time. Risk Assessment: Do you want to hurt yourself or someone else? Patient reports no desire to harm self or others. Onset of symptoms is unknown. 22:12 Method Of Arrival: Ambulatory as6 22:12 Acuity: MONE 3 as6 22:17 Initial Sepsis Screen: Does the patient meet any 2 criteria? No. Patient's initial as6 sepsis screen is negative. Does the patient have a suspected source of infection? No. Patient's initial sepsis screen is negative. 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 - Social history:: Smoking status: Patient denies any tobacco usage or history of. Screenin/19 00:52 [facility] [place] ED Fall Risk Assessment (Adult) Score/Fall Risk Level 0 - 2 = Low Risk. Abuse as6 screen: Denies threats or abuse. Denies injuries from another. Nutritional screening: No deficits noted. Tuberculosis screening: No symptoms or risk factors identified. Assessment: 10/17 22:55 General: Appears in no apparent distress. Behavior is calm, cooperative, appropriate mb9 for age. Pain: Complains of pain in LLQ Pain does not radiate. Pain currently is 4 out of 10 on a pain scale. Quality of pain is described as stabbing, Pain began 2 weeks ago. Neuro: Da Silva Agitation-Sedation Scale (RASS): 0 - Alert and Calm Level of Consciousness is awake, alert, obeys commands, Oriented to person, place, time, situation, Appropriate for age. Cardiovascular: Patient's skin is warm and dry. Respiratory: Airway is patent Respiratory effort is even, unlabored, Respiratory pattern is regular, symmetrical. GI: Abdomen is round non-distended, Bowel sounds present X 4 quads. Abd is soft Abdomen is tender to palpation in left lower quadrant. : Reports vaginal bleeding that is bright red, with clots, heavy flow since 2 weeks ago. Derm: Skin is pink, warm \\T\\ dry. Musculoskeletal: Range of motion: intact in all extremities. 10/18 00:01 Reassessment: Gave report to CY Bello. mb9 Vital Signs: 10/17 22:15 BP 155 / 111; Pulse 88; Resp 18 S; Temp 97.8(O); Pulse Ox 96% on R/A; Weight 141.97 kg as6 (R); Height 5 ft. 7 in. (170.18 cm) (R); Pain 10/10; 22:54 BP 157 / 99; Pulse 90; Resp 20; Pulse Ox 97% on R/A; Pain 4/10; mb9 23:43 BP 111 / 79; Pulse 76; Resp 18; Pulse Ox 98% on R/A; mb9 10/18 00:51 BP 120 / 77; Pulse 66; Resp 18 S; Pulse Ox 98% on R/A; as6 10/17 22:15 Body Mass Index 49.02 (141.97 kg, 170.18 cm) as6 ED Course: 10/17 21:28 Patient arrived in ED. jj6 22:11 Josephine Forrester FNP-C is PHCP. kb 22:11 Tiff Hurtado MD is Attending Physician. kb 22:13 Triage completed. as6 22:15 Arm band placed on. as6 22:29 Inserted saline lock: 20 gauge in right antecubital area, using aseptic technique. as6 Blood collected. 10/18 00:52 Bed in low position. Call light in reach. as6 00:52 No provider procedures requiring assistance completed. as6 00:59 IV discontinued, intact, bleeding controlled, No redness/swelling at site. Pressure as6 dressing applied. Administered Medications: 10/17 22:29 Drug: Zofran (Ondansetron) 4 mg Route: IVP; Site: right antecubital; as6 10/18 00:53 Follow up: Response: No adverse reaction as6 10/17 22:29 Drug: Ketorolac 15 mg Route: IVP; Site: right antecubital; as6 10/18 00:53 Follow up: Response: No adverse reaction as6 Medication: 00:52 VIS not applicable for this client. as6 Outcome: 00:46 Discharge ordered by . anlay 00:53 Discharged to home ambulatory. as6 00:53 Condition: stable 00:59 Discharge instructions given to patient, Instructed on discharge instructions, follow as6 up and referral plans. Demonstrated understanding of instructions, follow-up care. 01:00 Patient left the ED. as6 Signatures: Josephine Forrester, INSURANCE SALES ASSISTANT-C INSURANCE SALES ASSISTANT-Blanca Gibbs jj6 Ace Martins RN RN as6 Vicky Dye RN RN mb9
[2022-10-18 01:22] VITALS: TEMP 97.8
[2022-10-18 01:24] VITALS: O2SAT 98
[2022-10-18 01:26] VITALS: BP 120/77
--- NOTE | 2022-10-19 13:56 | RAD REPORT ---
EXAM DESCRIPTION: US - Transvaginal Study Probe - 10/17/2022 11:36 pm CLINICAL HISTORY: 32 years Female, ABD PAIN TECHNIQUE: Real-time transvaginal sonographic imaging of the pelvis was performed. COMPARISON: None. FINDINGS: UTERUS: Uterus measures 7.6 x 3.2 x 4.2 cm. No focal myoma. ENDOMETRIUM: Endometrium measures 8 mm in thickness. No endometrial free fluid. OVARIES: Nonvisualization right ovary in part secondary to overlying bowel gas. Left ovary measures 2.4 x 2.7 x 3.3 cm and contains a 2.5 cm simple cyst for which no further workup is warranted. Normal color Doppler flow to the left ovary. ADNEXA: No gross adnexal mass or abnormality. FREE FLUID: No free fluid in the pelvic cul-de-sac. IMPRESSION: 1. Nonvisualization of right ovary. 2. Otherwise, negative pelvic ultrasound. Electronically signed by: Buddy Denny MD 10/18/2022 12:40 AM POLITICAL REPORTER Due to temporary technical issues with the PACS/Fluency reporting system, reports are being signed by the in house radiologists without review as a courtesy to insure prompt reporting. The interpreting radiologist is fully responsible for the content of the report.
== END 2022-10-18 01:00 | disposition home or self-care (01) ==
LOC: ER 21:25
DX: N93.9 Abnormal uterine and vaginal bleeding, unspecified (principal)
CPT/HCPCS: 36415; 76830; 80048; 85025; 96374; 96375; 99284; J2405

== ENCOUNTER 2022-10-20 08:28 | Emergency (ER) | payer OTHER ==
--- OUTSIDE RECORDS SUMMARY | 2022-10-20 08:49 | XMS REPORT | Continuity of Care Document ---
:1990 Author Organization [facility] t Address [address] [place] [address] [place] [address] Care Team Providers Name Role Phone System, [facility] Primary Care Physician Unavailable PAM COLE Attending Clinician Unavailable Anahi Hoang MD Attending Clinician _[facility]_Diggs_R Attending Clinician Unavailable DA CHAPIN Attending Clinician Unavailable JENNY FLETCHER Attending Clinician Unavailable BRIE GALVAN Attending Clinician Unavailable Kaycee Longo Attending Clinician [phone] LEYLA GALVAN Attending Clinician Unavailable Thania Barrera [...] Clinician Unavailable PRESLEY PERAZA Attending Clinician Unavailable Chloé PANTOJA, Laith Maguire Attending Clinician ANSHU GUZMÁN Attending Clinician Unavailable Kar PANTOJA, Gabriella Attending Clinician CASH MOULTON Attending Clinician Unavailable [...] Toro Attending Clinician Sam Mcclendon Attending Clinician _[facility]_Diggs_R Admitting Clinician Unavailable ROSA M Admitting Clinician Unavailable González Flannery Admitting Clinician Tommy Del Toro Admitting Clinician Payers Payer Name Policy Type Policy Number Effective Date Expiration Date S edgardo CON[place] [id number] 2020 2021 [employer] 00:00:00 00:00:00 EXCEPT [facility] [id number] [facility] TP WOMEN'S HEALTH [id number] 2021 PROGRAM 00:00:00 [place] - [id number] 2021 WOMEN[facility]S HEALTH 00:00:00 PROGRAM (MEDICAID) [facility] [id number] 2020 00:00:00 Problems Condition Condition Condition Status Onset Resolution Last Treating Co mments Source Name Details Category Date Date Treatment Clinician Date FACE/RT FACE/RT Diagnosis Active 2022-03-19 Memoria SIDE SIDE 03-18 13:51:00 l NUMBNESS NUMBNESS 00:00: Garrett n Active 00 03/18/2022 [facility] FEVER, FEVER, Diagnosis Active 2022-03-13 Me moria BODY PAIN BODY PAIN 03-13 21:46:00 l Active 00:00: [place] 03/13/2022 00 [facility] Hypertensi Hypertensi Problem Active P rivia ve ve 3-29 Medical disorder Disorder 00:00: 00 SENT BY SENT BY Diagnosis Active 2021-03-[address] Active 01-20 15:44:00 l 01/20/2021 00:00: Garrett VILLA [address] INTRACTABL INTRACTAB Diagnosis Active 2015-10-17 Memoria E VOMITING LE 09-02 16:18:00 l S/P VOMITING 00:00: Dav GASTRIC S/P 00 SLEEVE GASTRIC SLEEVE Active 09/02/2015 [facility] VOMITTING Diagnosis Active 2015-09-17 Memoria VOMITTING 09-02 18:24:00 l Active 00:00: Dav 09/02/2015 00 [facility] ABDOMINAL ABDOMINAL Diagnosis Active 2014-082015-08-26 Memoria PAIN PAIN 10-27 11:29:00 l Active 00:00: Dav 08/26/2015 00 [facility] UNK UNK Diagnosis Active 2014-082015-08-06 Mem oria Active 10-06 12:24:00 l 08/05/2015 00:00: Garrett lynch 00 [facility] E66.01 E66.01 Diagnosis Active 2014-082015-08-16 Me moria Active 10-06 14:56:00 l 08/05/2015 00:00: Garrett lynch [address] MORBID MORBID Diagnosis Active 2014-082015-06-24 Me moria OBESITY OBESITY 0-23 15:17:00 l Active 00:00: [place] 06/21/2015 00 [facility] K21.9; K21.9; Diagnosis Active 2014-082015-06-24 [place] GASTRO-ESO GASTRO-ESO 0- 09:25:00 l PHAGEAL PHAGEAL 00:00: Adv REFLUX REFLUX 00 DISEASE DISEASE Active 06/19/2015 [facility] K21.0 K21.0 Diagnosis Active 2015-06-10 Mem oria Active 05-07 06:23:00 l 05/07/2015 00:00: Garrett lynch [address] Bipolar Bipolar Problem Resolve 2015-09-22 M emoria (qualifier (qualifier d 02:57:40 l value) value) Dav Resolved Problem 09/22/2015 [facility] Obesity Obesity Problem Resolve 2015-09-22 M emoria (disorder) (disorder) d 02:57:40 l Resolved Dav Problem 09/22/2015 [facility] Acid Acid Problem Active 2015-09-22 Memor ia reflux reflux 02:57:40 l (finding) (finding) Herm kailash Active Problem 09/22/2015 [facility] Pain in Pain in Problem Active 2022-03-21 Wa moria lower limb lower limb 21:09:41 l (finding) (finding) Herm kailash Active Problem 03/21/2022 [facility] [place] GASTRO-ESO GASTRO-ES Diagnosis Active 2015-06-10 Memoria PHAGEAL OPHAGEAL 06:23:00 l REFLUX REFLUX [place] DISEASE DISEASE WITH ES WITH ES Active [facility] MORBID MORBID Diagnosis Active 2015-08-16 Wa moria (SEVERE) (SEVERE) 14:56:00 l OBESITY OBESITY Dav DUE TO DUE TO EXCESS CA EXCESS CA Active [facility] VOMITING, VOMITING, Diagnosis Active 2015-10-17 Memoria UNSPECIFIE UNSPECIFIE 16:18:00 l D D Active [facility] History of Past Illness Condition Condition Condition Status Onset Resolution Last Treating Co mments Source Name Details Category Date Date Treatment Clinician Date 2018-nCoV 2019-nCoV Problem 2022-03-21 2022-03-21 Memoria acute acute 03-19 21:09:41 21:09:41 l respirator respirator 06:21: He rmann y disease y disease 00 03/19/2022 03/21/2022 [facility] Paresthesi Paresthes Problem 2022-03-21 2022-03-21 Memoria a of skin ia of skin 03-19 21:09:41 21:09:41 l 03/19/2022 06:21: Garrett n 00 2 [facility] Hypokalemi Hypokalem Problem 2022-03-21 2022-03-21 Erik a ia 03-19 21:09:41 21:09:41 l 03/19/2022 06:21: Garrett n 03/21/2022 00 [facility] Discharge Discharge Problem 2014-082015-08-29 2015-08-29 Memlizzy Diagnosis: Diagnosis: 10-27 03:22:03 03:22:03 l Abdominal Abdominal 06:00: Herm kailash pain pain 00 08/26/2015 5 [facility] Allergies, Adverse Reactions, Alerts Allergy Allergy Status Severity Reaction(s) Onset Inactive Treating Comm ents Source Name Type Date Date Clinician Latex Propensi Active Rash Methodi ty to 01-24 st adverse 00:00: Hospita reaction 00 l s to drug Latex Allergy Active [facility] substanc [facility] Latex Latex Active Memlizzy Celestin Active Memori hesham Demarco Social History Social Habit Start Date Stop Date Quantity Comments Source Alcohol intake 2022-06-11 2022-06-11 Current Taoism 00:00:00 00:00:00 non-drinker of Hospital alcohol (finding) Tobacco use and 2018-05-14 2018-05-14 Smokeless tobacco Me thodist exposure 00:00:00 00:00:00 non-user Hospital Social History 2015-08-15 2015-08-15 [facility] rosa 18:23:25 18:23:25 Sex [birth year] At [birth year] Taoism 00:00:00 00:00:00 Hospital Smoking Status Start Date Stop Date Source Never smoked tobacco [facility]spital Medications Ordered Filled Start Stop Current Ordering Indication Dosage Frequency Signature Comments Components Source Medication Medication Date Date Medication? Clinician (SIG) Name Name cephalexin 2021-08 500mg [id number] Take 1 Methodi (Keflex) 06-17 [id number] capsule s t 500 MG 00:00: 04:59 3D (500 mg Hospita capsule 00 :00 total) by l mouth 3 (three) times a day for 5 days. ondansetron 2021-08- No 4mg Q8H Take 1 Met hodi ODT 0-13 10-19 tablet (4 st (ZOFRAN-ODT 00:00: 04:59 mg total) Hospita ) 4 MG 00 :00 by mouth l disintegrat every 8 ing tablet (eight) hours as needed for nausea or vomiting for up to 5 days. cephalexin 2021-08- No 500mg [id number] Take 1 Methodi (Keflex) 0-13 10-19 [id number] capsule s t 500 MG 00:00: 04:59 3D (500 mg Hospita capsule 00 :00 total) by l mouth 3 (three) times a day for 5 days. ondansetron 2021-08- No 4mg Q8H Take 1 Met hodi ODT 0-13 10-19 tablet (4 st (ZOFRAN-ODT 00:00: 04:59 mg total) Hospita ) 4 MG 00 :00 by mouth l disintegrat every 8 ing tablet (eight) hours as needed for nausea or vomiting for up to 5 days. potassium 2021-0 No /= 14 Memoria chloride 7-21 Citizen [place], l 05:55: december Dav 00 dissolve each 20 mEq tablet in 4 oz of water. Allow about 2 minutes for the tablets to disintegra te. Stir before giving to prepare slurry and administer . Please exclude patient's with feeding tube less than 14 Citizen [place] (Dobhoff, J-tube, etc) and pediatric and patients. potassium 2022-0 No /= 14 Memoria chloride 7-21 [place], l 05:55: december [place] 00 dissolve each 20 mEq tablet in 4 oz of water. Allow about 2 minutes for the tablets to disintegra te. Stir before giving to prepare slurry and administer . Please exclude patient's with feeding tube less than 14 Citizen [place] (Dobhoff, J-tube, etc) and pediatric and patients. potassium 2022-0 No /= 14 Memoria chloride 7-21 [place], l 05:55: december Dav 00 dissolve each 20 mEq tablet in 4 oz of water. Allow about 2 minutes for the tablets to disintegra te. Stir before giving to prepare slurry and administer . Please exclude patient's with feeding tube less than 14 Citizen [place] (Dobhoff, J-tube, etc) and pediatric and patients. Tessalon 2021-0 Yes 200 mg = 1 Mem oria 200 mg oral 7-16 cap, PO, l capsule 03:28: TID, X 7 Garrett n 00 day, # 21 cap, 0 Refill(s) Tessalon 2021-0 Yes 200 mg = 1 Mem oria 200 mg oral 7-16 cap, PO, l capsule 03:28: TID, X 7 Garrett n 00 day, # 21 cap, 0 Refill(s) Tessalon 2021-0 Yes 200 mg = 1 Mem oria 200 mg oral 7-16 cap, PO, l capsule 03:28: TID, X 7 Garrett n 00 day, # 21 cap, 0 Refill(s) ibuprofen Yes 600 mg = 1 Me moria 600 mg oral 7-16 tab, PO, l tablet 03:27: Q6H, PRN [place] 00 Pain or Fever, Take with food, X 10 day, # 40 tab, 0 Refill(s) ibuprofen 0 Yes 600 mg = 1 Me moria 600 mg oral 7-16 tab, PO, l tablet 03:27: Q6H, PRN Dav 00 Pain or Fever, Take with food, X 10 day, # 40 tab, 0 Refill(s) ibuprofen 0 Yes 600 mg = 1 Me moria 600 mg oral 7-16 tab, PO, l tablet 03:27: Q6H, PRN [place] 00 Pain or Fever, Take with food, X 10 day, # 40 tab, 0 Refill(s) Tylenol No Notes: Max Henok vane 7-16 acetaminop l 00:44: hen 4000 [place] 00 mg/day (4 gm/day). (Same as: Tylenol Extra Strength) Tylenol No Notes: Max Henok vane 7-16 acetaminop l 00:44: hen 4000 [place] 00 mg/day (4 gm/day). (Same as: Tylenol Extra Strength) Tylenol No Notes: Max Henok vane 7-16 acetaminop l 00:44: hen 4000 [place] 00 mg/day (4 gm/day). (Same as: Tylenol Extra Strength) furosemide 2021-0 Yes 40mg Q.5D Take 40 mg M ethodi (LASIX) 40 5-[address] mg tablet 10:40: (two) Hospita 34 times a l day. furosemide 2021-0 Yes 40mg Q.5D Take 40 mg M ethodi (LASIX) 40 5-[address] mg tablet 10:40: (two) Hospita 34 times a l day. insulin 2021-0 Yes [id number] Inject Me thodi ASPART 5-[id number] (NovoLOG) 10:40: 3D skin 3 Hospit a 100 unit/mL 33 (three) l injection times a day before meals. metFORMIN 2021-0 Yes 850mg Q.5D Take 850 Met hodi (GLUCOPHAGE 5-[address] ) 850 mg 10:40: mouth 2 Hospit a tablet 33 (two) l times a day with meals. insulin 2021-0 Yes QD Inject Methodi GLARGINE 5-[address] (LANTUS) 10:40: skin Hospita 100 unit/mL 33 nightly. l injection (vial) insulin 2020-0 Yes [id number] Inject Me thodi ASPART 5-[id number] (NovoLOG) 10:40: 3D skin 3 Hospit a 100 unit/mL 33 (three) l injection times a day before meals. metFORMIN 1-0 Yes 850mg Q.5D Take 850 Met hodi (GLUCOPHAGE 5-[address] ) 850 mg 10:40: mouth 2 Hospit a tablet 33 (two) l times a day with meals. insulin 1-0 Yes QD Inject Methodi GLARGINE 5-[address] (LANTUS) 10:40: skin Hospita 100 unit/mL 33 nightly. l injection (vial) buPROPion 2020-0 Yes 300mg QD Take 300 Met hodi XL 5-[address] (WELLBUTRIN 19:57: mouth Hospi ta XL) 300 MG 02 every l 24 hr morning. tablet busPIRone 2020-0 Yes 10mg Q.5D Take 10 mg Me thodi (BUSPAR) 10 5-[address] MG tablet 19:57: (two) Hospita 02 times a l day. amitriptyli 2020-0 Yes 100mg QD Take 100 M ethodi ne (ELAVIL) 5-[address] 100 MG 19:57: mouth Hospita tablet 02 nightly. l buPROPion 2020-0 Yes 300mg QD Take 300 Met hodi XL 5-[address] (WELLBUTRIN 19:57: mouth Hospi ta XL) 300 MG 02 every l 24 hr morning. tablet busPIRone 2020-0 Yes 10mg Q.5D Take 10 mg Me thodi (BUSPAR) 10 5-[address] MG tablet 19:57: (two) Hospita 02 times a l day. amitriptyli 2020-0 Yes 100mg QD Take 100 M ethodi ne (ELAVIL) 5-[address] 100 MG 19:57: mouth Hospita tablet 02 nightly. l ibuprofen 2020-0 Yes 600mg Q8H Take 1 Metho di (ADVIL) 600 5-[address] MG tablet 00:00: (600 mg Hospi ta 00 total) by l mouth every 8 (eight) hours as needed (for pain and swelling) for up to 20 doses. ibuprofen 2020-0 Yes 600mg Q8H Take 1 Metho di [...] Sodium No 1,000 mL, Memori a Chloride 21 Rate: 25 l 0.154 18:06: ml/hr, [place] MEQ/ML 00 Infuse Injectable over: 40 Solution hr, Route: IV, Dosing Weight 160.909 kg, Total Volume: 1,000, Start date: 09/19/15 12:06:00, Duration: 30 day, Stop date: 10/19/15 12:05:00 Sodium 2015- No 1,000 mL, Memori a Chloride 21 Rate: 25 l 0.154 18:06: ml/hr, [place] MEQ/ML 00 Infuse Injectable over: 40 Solution hr, Route: IV, Dosing Weight 160.909 kg, Total Volume: 1,000, Start date: 09/19/15 12:06:00, Duration: 30 day, Stop date: 10/19/15 12:05:00 Sodium 2016-0 No 1,000 mL, Memori a Chloride -21 Rate: 25 l 0.154 18:06: ml/hr, Dav MEQ/ML 00 Infuse Injectable over: 40 Solution hr, Route: IV, Dosing Weight 160.909 kg, Total Volume: 1,000, Start date: 09/19/15 12:06:00, Duration: 30 day, Stop date: 10/19/15 12:05:00 thiamine 2016-0 Yes 100 mg = 1 Mem oria 100 mg oral 1-21 tab, PO, l tablet 17:08: Daily, X [place] 14 day, # 14 tab, 0 Refill(s) pantoprazol 2016-0 Yes 40 mg = 1 M emoria e 40 mg 1-21 tab, PO, l oral 17:08: Before [place] enteric 00 Dinner, # coated 30 tab, 0 tablet Refill(s) Promethazin 2016-0 Yes 12.5 mg = M emoria e -21 1 tab, PO, l Hydrochlori 17:08: Q6H, PRN He rmann de 12.5 MG 00 Nausea & Oral Tablet Vomiting, [Phenergan] X 7 day, # 28 tab, 0 Refill(s) Folic Acid 2016-0 Yes 1 mg = 1 Mem oria 1 MG Oral 1-21 tab, PO, l Tablet 17:08: Daily, # [place] 00 30 tab, 0 Refill(s) thiamine 2016-0 Yes 100 mg = 1 Mem oria 100 mg oral 1-21 tab, PO, l tablet 17:08: Daily, X [place] 14 day, # 14 tab, 0 Refill(s) [...] # 28 tab, 0 Refill(s) Folic Acid Yes 1 mg = 1 Mem oria 1 MG Oral 1-21 tab, PO, l Tablet 17:08: Daily, # Dav 00 30 tab, 0 Refill(s) thiamine Yes 100 mg = 1 Mem oria 100 mg oral 1-21 tab, PO, l tablet 17:08: Daily, X [place] 00 14 day, # 14 tab, 0 Refill(s) pantoprazol Yes 40 mg = 1 M emoria e 40 mg -21 tab, PO, l oral 17:08: Before [place] enteric 00 Dinner, # coated 30 tab, 0 tablet Refill(s) Promethazin Yes 12.5 mg = M emoria e -21 1 tab, PO, l Hydrochlori 17:08: Q6H, PRN He rmann de 12.5 MG 00 Nausea & Oral Tablet Vomiting, [Phenergan] X 7 day, # 28 tab, 0 Refill(s) Folic Acid Yes 1 mg = 1 Mem oria 1 MG Oral 1-21 tab, PO, l Tablet 17:08: Daily, # [place] 00 30 tab, 0 Refill(s) Melatonin No 1 mg, Memoria 09-19 Route: PO, l 03:00: Drug form: [place] 00 TAB, Bedtime, Dosing Weight 160.909, kg, Start date: 09/18/15 21:00:00, Duration: 30 day, Stop date: 10/17/15 21:00:00 Lamictal No Notes: Memoria 09-19 (Same l 03:00: as:LaMICta l) Strattera No 80 mg, Memori a 09-19 Route: PO, l 03:00: Drug form: Dav CAP, Bedtime, Dosing Weight 160.909, kg, Start date: 09/18/15 21:00:00, Duration: 30 day, Stop date: 10/17/15 21:00:00 Melatonin 2016-0 No 1 mg, Memoria 121 Route: PO, l 03:00: Drug form: Dav 00 TAB, Bedtime, Dosing Weight 160.909, kg, Start date: 09/18/15 21:00:00, Duration: 30 day, Stop date: 10/17/15 21:00:00 Lamictal 2016-0 No Notes: Memoria 1-21 (Same l 03:00: as:LaMICta Dav 00 l) Strattera 2015-0 No 80 mg, Memori a 1-21 Route: PO, l 03:00: Drug form: [place] 00 CAP, Bedtime, Dosing Weight 160.909, kg, Start date: 09/18/15 21:00:00, Duration: 30 day, Stop date: 10/17/15 21:00:00 Melatonin 0 No 1 mg, Memoria 1 Route: PO, l 03:00: Drug form: Dav 00 TAB, Bedtime, Dosing Weight 160.909, kg, Start date: 09/18/15 21:00:00, Duration: 30 day, Stop date: 10/17/15 21:00:00 Lamictal 2015-0 No Notes: Memoria -21 (Same l 03:00: as:LaMICta Dav 00 l) Strattera 2015-0 No 80 mg, Memori a 1-21 Route: PO, l 03:00: Drug form: [place] 00 CAP, Bedtime, Dosing Weight 160.909, kg, Start date: 09/18/15 21:00:00, Duration: 30 day, Stop date: 10/17/15 21:00:00 Protonix 2015-0 No Notes: Memoria 1-20 Tablet l 22:30: should not Dav 00 be chewed or crushed. (Same as: Protonix) Protonix 2015-0 No Notes: Memoria 1-20 Tablet l 22:30: should not [place] 00 be chewed or crushed. (Same as: Protonix) Protonix 2015-0 No Notes: Memoria 1-20 Tablet l 22:30: should not Dav 00 be chewed or crushed. (Same as: Protonix) Thiamine 2015-0 No Notes: Memoria 1-20 (Same As: l 20:00: Vitamin [place] 00 B1) Thiamine 2016-0 No Notes: Memoria 1-20 (Same As: l 20:00: Vitamin B1) Thiamine No Notes: Memoria 1-20 (Same As: l 20:00: Vitamin B1) Folic Acid No Notes: Memor ia [...] 1-20 (Same as: l 15:00: Prinivil, Dav 00 Zestril) Lovenox No Notes: Memoria 1-20 (Same [...] 30 day, Stop date: 10/17/15 9:00:00 multivitami 2015-0 No 2 tab, Henok vane n 1-20 Route: l 15:00: CHEW, Dav 00 Dosing Weight 160.909, kg, BID, Start [...] 1-20 (Same as: l 15:00: Prinivil, Dav 00 Zestril) Lovenox No Notes: Memoria 1-20 (Same as: l 15:00: Lovenox) hydrochloro No Notes: Henok vane thiazide 25 1-20 (Same as: l mg oral 15:00: Hydrodiuri Herm kailash tablet 00 l) With food. Prilosec 0 No 40 mg, Memoria 1-20 Route: PO, l 15:00: Drug form: Dav 00 DRC, Daily, Dosing Weight 160.909, kg, Start date: 09/18/15 9:00:00, Duration: 30 day, Stop date: 10/17/15 9:00:00 multivitami 2016-0 No 2 tab, Henok vane n 1-20 Route: l 15:00: CHEW, [place] 00 Dosing Weight 160.909, kg, BID, Start date: 09/18/15 9:00:00, Duration: 30 day, Stop date: 10/17/15 17:00:00 Hydrochloro 2015-0 No 1 tab, Henok vane thiazide 25 1-20 Route: PO, l MG / 15:00: Drug Form: Dav Lisinopril 00 TAB, 20 MG Oral Dosing Tablet Weight 160.909, kg, Daily, Start date: 09/18/15 9:00:00, Duration: 30 day, Stop date: 10/17/15 9:00:00 Prinivil No Notes: Memoria 1-20 (Same as: l 15:00: Prinivil, [place] 00 Zestril) Lovenox No Notes: Memoria 1-20 (Same as: l 15:00: Lovenox) [place] 00 hydrochloro 0 No Notes: Henok vane thiazide 25 1-20 (Same as: l mg oral 15:00: Hydrodiuri Herm kailash tablet 00 l) With food. Prilosec No 40 mg, Memoria 1-20 Route: PO, l 15:00: Drug form: Dav 00 DRC, Daily, Dosing Weight 160.909, kg, Start date: 09/18/15 9:00:00, Duration: 30 day, Stop date: 10/17/15 9:00:00 multivitami 2015- No 2 tab, Henok vane n 1-20 Route: l 15:00: CHEW, Dav 00 Dosing Weight 160.909, kg, BID, Start date: 09/18/15 9:00:00, Duration: 30 day, Stop date: 10/17/15 17:00:00 Hydrochloro 2015-0 No 1 tab, Henok vane thiazide 25 [...] day, Stop date: 10/17/15 16:00:00 *Remind pt No *Remind pt M emoria to bring 1-20 to bring l home med 06:00: home med Brigida nn melatonin 1 00 melatonin mg and 1 mg and multivitami multivitam n in, Reminder, Drug form: MISC, Route: MISC, QSHIFT, 09/18/15 0:00:00, Duration: 30 day, Stop date: 10/17/15 16:00:00 *Remind pt No *Remind pt M emoria to bring [...] Wellbutrin Dav 00 XL) "Do Not Crush" Bupropion No Notes: Memori a 1-20 (Same as: l 05:00: Wellbutrin Dav 00 XL) "Do Not Crush" Bupropion No Notes: Memori a 1-20 (Same as: l 05:00: Wellbutrin Dav 00 XL) "Do Not Crush" Reglan No Notes: Memoria 1-20 (Same as: l 04:26: Reglan) Dav 00 Acetaminoph No Notes: Do M emoria en 1-20 not exceed l 04:26: 4 gm/day. [place] 00 (Same as: Tylenol) Ondansetron No Notes: Henok vane 1-20 (Same as: l 04:26: Zofran) 00 MEDICATION WASTE Product Size: 4 mg Product Wasted: ___ mg Morphine No Notes: Memoria 1-20 (Same l 04:26: as:MORPhin [place] 00 e Sulfate) Phenergan No Notes: Do Mem oria 1-20 not give l 04:26: IV push. [place] 00 (Same as: Phenergan) Reglan No Notes: Memoria 1-20 (Same as: l 04:26: Reglan) Dav 00 Acetaminoph No Notes: Do M emoria en 1-20 not exceed l 04:26: 4 gm/day. Dav 00 (Same as: Tylenol) Ondansetron No Notes: Henok vane 1-20 (Same as: l 04:26: Zofran) Dav 00 MEDICATION WASTE Product Size: 4 mg Product Wasted: ___ mg Morphine No Notes: Memoria 1-20 (Same l 04:26: as:MORPhin [place] 00 e Sulfate) Phenergan No Notes: Do Mem oria 1-20 not give l 04:26: IV push. Dav 00 (Same as: Phenergan) Reglan No Notes: Memoria 1-20 (Same as: l 04:26: Reglan) Dav 00 Acetaminoph No Notes: Do M emoria en 1-20 not exceed l 04:26: 4 gm/day. [place] 00 (Same as: Tylenol) Ondansetron No Notes: Henok vane 1-20 (Same as: l 04:26: Zofran) [place] 00 MEDICATION WASTE Product Size: 4 mg Product Wasted: ___ mg Morphine No Notes: Memoria 1-20 (Same l 04:26: as:MORPhin Dav 00 e Sulfate) Phenergan No Notes: Do Mem oria 1-20 not give l 04:26: IV push. Dav 00 (Same as: Phenergan) Zofran ODT No Notes: Memor ia 1-20 (Same as: l 04:25: Zofran [place] 00 ODT) Zofran ODT No Notes: Memor ia 1-20 (Same as: l 04:25: Zofran Dav 00 ODT) Zofran ODT No Notes: Memor [...] 1-20 Same as: l 0.09 04:23: Ventolin [place] MG/ACTUAT 00 HFA Metered Dose Inhaler [Proventil] 200 ACTUAT No Notes: Memor ia Albuterol 1-20 Same as: l 0.09 04:23: Ventolin [place] MG/ACTUAT 00 HFA Metered Dose Inhaler [Proventil] 200 ACTUAT No Notes: Memor ia Albuterol 1-20 Same as: l 0.09 04:23: Ventolin [place] MG/ACTUAT 00 HFA Metered Dose Inhaler [Proventil] Melatonin No Melatoni Memoria 1mg -Pt's 1-20 n 1mg l own 04:19: -Pt's own Dav medication* 00 medication * , 1 mg, 1 tab, Drug form: MISC, Route: PO, ONCE, 09/17/15 22:19:00, Stop date: 09/17/15 22:19:00 Melatonin No Melatoni Memoria 1mg -Pt's 1-20 n 1mg l own 04:19: -Pt's own [place] medication* 00 medication * , 1 mg, 1 tab, Drug form: MISC, Route: PO, ONCE, 09/17/15 22:19:00, Stop date: 09/17/15 22:19:00 Melatonin 2016-0 No Melatoni Memoria 1mg -Pt's 1-20 n 1mg l own 04:19: -Pt's own [place] medication* 00 medication * , 1 mg, 1 tab, Drug form: MISC, Route: PO, ONCE, 09/17/15 22:19:00, Stop date: 09/17/15 22:19:00 Strattera 2016-0 No 80 mg, Memori a 1-20 Route: PO, l 04:12: ONCE, Dav 00 Dosing Weight 160.909, kg, Start date: 09/17/15 22:12:00, Stop date: 09/17/15 22:12:00 Strattera 2016-0 No 80 mg, Memori a 1-20 Route: PO, l 04:12: ONCE, Dav 00 Dosing Weight 160.909, kg, Start date: 09/17/15 22:12:00, Stop date: 09/17/15 22:12:00 Strattera 2016-0 No 80 mg, Memori a 1-20 Route: PO, l 04:12: ONCE, Dosing Weight 160.909, kg, Start date: 09/17/15 22:12:00, Stop date: 09/17/15 22:12:00 Melatonin 2015-0 No 1 mg, Memoria 1-20 Route: PO, l 04:11: ONCE, Dosing Weight 160.909, kg, Start date: 09/17/15 22:11:00, Stop date: 09/17/15 22:11:00 lamotrigine 0 No Notes: Henok vane 150 MG Oral 1-20 (Same l Tablet 04:11: as:LaMICta Brigida nn l) Melatonin 0 No 1 mg, Memoria 1-20 Route: PO, l 04:11: ONCE, Dav 00 Dosing Weight 160.909, kg, Start date: 09/17/15 22:11:00, Stop date: 09/17/15 22:11:00 lamotrigine 2015-0 No Notes: Henok vane 150 MG Oral 1-20 (Same l Tablet 04:11: as:LaMICta Brigida nn 00 l) Melatonin 2015-0 No 1 mg, Memoria 1-20 Route: PO, l 04:11: ONCE, Dav 00 Dosing Weight 160.909, kg, Start date: 09/17/15 22:11:00, Stop date: 09/17/15 22:11:00 lamotrigine No Notes: Henok vane 150 MG Oral 1-20 (Same l Tablet 04:11: as:LaMICta Brigida nn 00 l) 200 ACTUAT Yes 2 puff, Henok vane Albuterol 1-20 INHALATION l 0.09 04:10: , QID, PRN [place] MG/ACTUAT 00 as needed Metered for Dose wheezing, Inhaler 0 [Proventil] Refill(s) 200 ACTUAT Yes 2 puff, Henok vane Albuterol 1-20 INHALATION l 0.09 04:10: , QID, PRN Dav MG/ACTUAT 00 as needed Metered for Dose wheezing, Inhaler 0 [Proventil] Refill(s) 200 ACTUAT Yes 2 puff, Hneok vane Albuterol 1-20 INHALATION l 0.09 04:10: , QID, PRN [place] MG/ACTUAT 00 as needed Metered for Dose wheezing, Inhaler 0 [Proventil] Refill(s) multivitami Yes 2 tab, Henok vane n 1-20 CHEW, BID, l 04:08: 0 [place] 00 Refill(s) multivitami Yes 2 tab, Henok vane n 1-20 CHEW, BID, l 04:08: 0 [place] 00 Refill(s) multivitami 2016 Yes 2 tab, Henok vane n 1-20 CHEW, BID, l 04:08: 0 Dav 00 Refill(s) Ondansetron 2016 Yes 8 mg = 1 Me moria [...] [Zofran] for nausea/vom iting, 0 Refill(s) Metoclopram 2016 Yes 10 mg = 1 M emoria [...] Memoria 1-20 (Same as: l 03:49: Reglan) [place] 00 Reglan No Notes: Memoria 1-20 (Same as: l 03:49: Reglan) [place] 00 Reglan No Notes: Memoria 1-20 (Same as: l 03:49: Reglan) Dav 00 Ondansetron No Notes: Henok vane 4 MG 1-20 (Same as: l Disintegrat 00:07: Zofran Herm kailash ing Tablet 00 ODT) Saline No Notes: Memoria Flush 0.9% 1-20 (Same as: l 00:07: BD [place] 00 Posiflush) Ondansetron No Notes: Henok vane [...] 0.9% 1-20 (Same as: l 00:07: BD [place] 00 Posiflush) Ondansetron 2014-08 No 4 mg = 1 Me moria 4 MG 2-28 tab, PO, l Disintegrat 22:06: TID, Garrett n ing Tablet 00 Dissolve [Zofran] tab under tongue, X 1 day, # 12 tab, 0 Refill(s) Acetaminoph 2014-08 Yes 11.25 mL, M emoria en 20 MG/ML 2-28 PO, Q6H, # l / 22:06: 60 mL, 0 [place] Hydrocodone 00 Refill(s) Bitartrate 0.667 MG/ML Oral [...] # l / 22:06: 60 mL, 0 [place] Hydrocodone 00 Refill(s) Bitartrate 0.667 MG/ML Oral [...] # l / 22:06: 60 mL, 0 [place] Hydrocodone 00 Refill(s) Bitartrate 0.667 MG/ML Oral Solution ketOROLAC 2014-08 No 15 mg, Memori a 15 mg/mL 10-27 Route: l injectable 20:44: IVP, Drug He rmann solution 00 form: INJ, ONCE, Dosing Weight 162.273, kg, Priority: STAT, Start date: 08/26/15 14:44:00, Stop date: 08/26/15 14:44:00 ketOROLAC 2014-08 No 15 mg, Memori a 15 mg/mL 10-27 Route: l injectable 20:44: IVP, Drug He rmann solution 00 form: INJ, ONCE, Dosing Weight 162.273, kg, Priority: STAT, Start date: 08/26/15 14:44:00, Stop date: 08/26/15 14:44:00 ketOROLAC 2014-08 No 15 mg, Memori a 15 mg/mL 10-27 Route: l injectable 20:44: IVP, Drug He rmann solution 00 form: INJ, ONCE, Dosing Weight 162.273, kg, Priority: STAT, Start date: 08/26/15 14:44:00, Stop date: 08/26/15 14:44:00 Morphine 2014-08 No 6 mg, Memoria 10-27 Route: l 18:38: IVP, Drug [place] 00 form: INJ, ONCE, Dosing Weight 162.273, kg, Priority: STAT, Start date: 08/26/15 12:38:00, Stop date: 08/26/15 12:38:00 Morphine 2014-08 No 6 mg, Memoria 2-28 Route: l 18:38: IVP, Drug [place] 00 form: INJ, ONCE, Dosing Weight 162.273, kg, Priority: STAT, Start date: 08/26/15 12:38:00, Stop date: 08/26/15 12:38:00 Morphine 2014-08 No 6 mg, Memoria 2- Route: l 18:38: IVP, Drug [place] 00 form: INJ, ONCE, Dosing Weight 162.273, kg, Priority: STAT, Start date: 08/26/15 12:38:00, Stop date: 08/26/15 12:38:00 Zofran 2014- No 4 mg, Memoria 2-28 Route: l 18:37: IVP, Drug [place] 00 form: INJ, ONCE, Dosing Weight 162.273, kg, Priority: STAT, Start date: 08/26/15 12:37:00, Stop date: 08/26/15 12:37:00 Zofran 2014- No 4 mg, Memoria 2-28 Route: l 18:37: IVP, Drug [place] 00 form: INJ, ONCE, Dosing Weight 162.273, kg, Priority: STAT, Start date: 08/26/15 12:37:00, Stop date: 08/26/15 12:37:00 Zofran 2014- No 4 mg, Memoria 2-28 Route: l 18:37: IVP, Drug [place] 00 form: INJ, ONCE, Dosing Weight 162.273, kg, Priority: STAT, Start date: 08/26/15 12:37:00, Stop date: 08/26/15 12:37:00 Sodium 2014- No 1,000 mL, Memori a Chloride 2-28 1,000 l 0.154 16:47: ml/hr, [place] MEQ/ML 00 Infuse Injectable Over: 1 Solution Hour, Route: IV, ONCE, Priority: STAT, Dosing Weight 162.273 kg, Start date: 08/26/15 10:47:00, Duration: 1 doses or times, Stop date: 08/26/15 10:47:00 Sodium 2014-1 No 1,000 mL, Memori a Chloride 2-28 1,000 l 0.154 16:47: ml/hr, [place] MEQ/ML 00 Infuse Injectable Over: 1 Solution Hour, Route: IV, ONCE, Priority: STAT, Dosing Weight 162.273 kg, Start date: 08/26/15 10:47:00, Duration: 1 doses or times, Stop date: 08/26/15 10:47:00 Sodium 2014-1 No 1,000 mL, Memori a Chloride 2-28 1,000 l 0.154 16:47: ml/hr, [place] MEQ/ML 00 Infuse Injectable Over: 1 Solution Hour, Route: IV, ONCE, Priority: STAT, Dosing Weight 162.273 kg, Start date: 08/26/15 10:47:00, Duration: 1 doses or times, Stop date: 08/26/15 10:47:00 Reglan 2014-08 No Notes: Memoria 2-19 (Same as: l 06:00: Reglan) [place] 00 Take 30 min before meals Reglan 2014-08 No Notes: Memoria 2-19 (Same as: l 06:00: Reglan) [place] 00 Take 30 min before meals Reglan 2014-08 No Notes: Memoria 2-19 (Same as: l 06:00: Reglan) [place] 00 Take 30 min before meals Pepcid 2014-08 No Notes: Memoria 2-19 (Same as: l 03:00: Pepcid) [place] 00 Pepcid 2014-08 No Notes: Memoria 2-19 (Same as: l 03:00: Pepcid) [place] 00 Pepcid 2014-08 No Notes: Memoria 2-19 (Same as: l 03:00: Pepcid) [place] 00 Acetaminoph 2014-08 No Notes: Do M emoria en 20 MG/ML 2-18 not exceed l / 17:48: 4gm/day of [place] Hydrocodone 00 acetaminop Bitartrate hen. (Same 0.667 MG/ML as: Oral Zolvit) Solution Acetaminoph 2014-08 No Notes: Do M emoria en 20 MG/ML 2-18 not exceed l / 17:48: 4gm/day of [place] Hydrocodone 00 acetaminop Bitartrate hen. (Same 0.667 MG/ML as: Oral Zolvit) Solution Acetaminoph 2014-08 No Notes: Do M emoria en 20 MG/ML 2-18 not exceed l / 17:48: 4gm/day of [place] Hydrocodone 00 acetaminop Bitartrate hen. (Same 0.667 MG/ML as: Oral Zolvit) Solution Wellbutrin 2014-08 No Notes: Memor ia 2-18 (Same As: l 15:00: Wellbutrin [place] 00 ) Prinivil 2014-08 No Notes: Memoria 2-18 (Same as: l 15:00: Prinivil, [place] 00 Zestril) hydrochloro 2014-08 No Notes: Henok vane thiazide 25 2-18 (Same as: l mg oral 15:00: Hydrodiuri Herm kailash tablet 00 l) With food. pneumococca 2014-08 No Notes: Henok vane l capsular 2-18 (Same as: l polysacchar 15:00: Pneumovax H ermann john type 1 23) vaccine / Refrigerat pneumococca e l capsular polysacchar john type 10A vaccine / pneumococca l capsular polysacchar john type 11A vaccine / pneumococca l capsular polysacchar john type 12F vaccine / pneumococca l capsular polysacchar Hydrochloro 2014-08 No 1 tab, Henok vane thiazide 25 2-18 Route: PO, l MG / 15:00: Drug Form: [place] Lisinopril 00 TAB, 20 MG Oral Dosing Tablet Weight 168.636, kg, Daily, Start date: 08/16/15 9:00:00, Duration: 30 day, Stop date: 09/14/15 9:00:00 Wellbutrin 2014-08 No Notes: Memor ia 2-18 (Same As: l 15:00: Wellbutrin [place] 00 ) Prinivil 2014-08 No Notes: Memoria 2-18 (Same as: l 15:00: Prinivil, [place] 00 Zestril) hydrochloro 2014-08 No Notes: Henok vnae thiazide 25 2-18 (Same as: l mg oral 15:00: Hydrodiuri Herm kailash tablet 00 l) With food. pneumococca 2014-08 No Notes: Henok vane l capsular 2-18 (Same as: l polysacchar 15:00: Pneumovax H ermann john type 1 ) vaccine / Refrigerat pneumococca e l capsular polysacchar john type 10A vaccine / pneumococca l capsular polysacchar john type 11A vaccine / pneumococca l capsular polysacchar john type 12F vaccine / pneumococca l capsular polysacchar Hydrochloro 2014-08 No 1 tab, Henok vane thiazide 25 2-18 Route: PO, l MG / 15:00: Drug Form: [place] Lisinopril 00 TAB, 20 MG Oral Dosing Tablet Weight 168.636, kg, Daily, Start date: 08/16/15 9:00:00, Duration: 30 day, Stop date: 09/14/15 9:00:00 Wellbutrin 2014-08 No Notes: Memor ia 2-18 (Same As: l 15:00: Wellbutrin [place] 00 ) Prinivil 2014-08 No Notes: Memoria 2-18 (Same as: l 15:00: Prinivil, Dav 00 Zestril) hydrochloro 2014-08 No Notes: Henok vane thiazide 25 2-18 (Same as: l mg oral 15:00: Hydrodiuri Herm kaialsh tablet 00 l) With food. pneumococca 2014-08 [...] date: 09/14/15 9:00:00 Reminder 2014-08 No Reminde Memoria to bring [...] pt's own Brigida nn med 00 med mu dobbins to pharmacy to pharmacy, 1, Drug form: MISC, Route: MISC, QSHIFT, 08/16/15 0:00:00, Duration: 30 day, Stop date: 09/14/15 16:00:00 Enoxaparin 2014-08 No Notes: Memor ia 2-18 (Same as: l 05:00: Lovenox) [place] Enoxaparin 2014-08 No Notes: Memor ia 2-18 (Same as: l 05:00: Lovenox) [place] Enoxaparin 2014-08 No Notes: Memor ia 2-18 (Same as: l 05:00: Lovenox) [place] Lamictal 2014-08 No Notes: Memoria 2-18 (Same l 03:00: as:LaMICta [place] 00 l) Strattera 2014-08 No 80 mg, Memori a 2-18 Route: PO, l 03:00: Drug form: [place] 00 CAP, Bedtime, Dosing Weight 168.636, kg, Start date: 08/15/15 21:00:00, Duration: 30 day, Stop date: 09/13/15 21:00:00 Famotidine 2014-08 No Notes: Memor ia 2-18 (Same as: l 03:00: Pepcid) [place] 00 Can be dilute in 5-10cc NS IVP: Slow IV push over at least 2 minutes. Lamictal 2014-08 No Notes: Memoria 2-18 (Same l 03:00: as:LaMICta [place] 00 l) Strattera 2014-08 No 80 mg, Memori a 2-18 Route: PO, l 03:00: Drug form: [place] 00 CAP, Bedtime, Dosing Weight 168.636, kg, Start date: 08/15/15 21:00:00, Duration: 30 day, Stop date: 09/13/15 21:00:00 Famotidine 2014-08 No Notes: Memor ia 2-18 (Same as: l 03:00: Pepcid) [place] 00 Can be dilute in 5-10cc NS IVP: Slow IV push over at least 2 minutes. Famotidine 2014-08 No Notes: Memor ia 2-18 (Same as: l 03:00: Pepcid) [place] 00 Can be dilute in 5-10cc NS IVP: Slow IV push over at least 2 minutes. Lamictal 2014-08 No Notes: Memoria 2-18 (Same l 03:00: as:LaMICta [place] 00 l) Strattera 2014-08 No 80 mg, Memori a 2-18 Route: PO, l 03:00: Drug form: [place] 00 CAP, Bedtime, Dosing Weight 168.636, kg, Start date: 08/15/15 21:00:00, Duration: 30 day, Stop date: 09/13/15 21:00:00 Metoclopram 2014-08 No Notes: Henok vane john 2-17 (Same as: l 22:00: Reglan) [place] 00 Metoclopram 2014-08 No Notes: Henok vane john 2-17 (Same as: l 22:00: Reglan) [place] Metoclopram 2014-08 No Notes: Henok vane john 2-17 (Same as: l 22:00: Reglan) [place] 00 Sucralfate 2014-08 No Notes: Memor ia 100 MG/ML 2-17 Enteral l Oral 19:00: feeds may [place] Suspension 00 interfere [Carafate] with the absorption of this medication . Shake well. Take 1 hr before or 2 hrs after antacids, dairy pdt, minerals & meals. (Same As: Carafate) Sucralfate 2014-08 No Notes: Memor ia 100 MG/ML 2-17 Enteral l Oral 19:00: feeds may [place] Suspension 00 interfere [Carafate] with the absorption of this medication . Shake well. Take 1 hr before or 2 hrs after antacids, dairy pdt, minerals & meals. (Same As: Carafate) Sucralfate 2014-08 No Notes: Memor ia 100 MG/ML 2-17 Enteral l Oral 19:00: feeds may [place] Suspension 00 interfere [Carafate] with the absorption [...] vane 2-17 (Same as: l 18:00: Zofran) 00 MEDICATION WASTE Product Size: 4 mg Product Wasted: ___ mg Hydromorpho 2014-08 No 0.5 mg, Mem oria ne 2-17 0.5 mL, l 16:34: Route: IV, Drug form: INJ, Q3H, Dosing Weight 175.909, kg, PRN Pain Score 7-10, Start date: 08/15/15 10:34:00, Duration: 30 day, Stop date: 09/14/15 10:33:00 LR IV 1,000 2014-08 No 1,000 mL, M emoria mL - Rate: 125 l 16:34: ml/hr, Infuse over: [...] ia 2-17 (Same as: l 16:34: Lopressor) Push over 2 minutes Calcium 2014-08 No [...] 2-17 0.5 mL, l 16:34: Route: IV, Dav 00 Drug form: INJ, Q3H, Dosing Weight [...] ia 2-17 (Same as: l 16:34: Lopressor) Push over 2 minutes Calcium 2014-08 No 1,000 mL, Memor ia Chloride 2-17 Rate: 125 l 0.0014 16:34: ml/hr, [place] MEQ/ML / 00 Infuse Potassium over: 8 Chloride hr, Route: 0.004 IV, Dosing MEQ/ML / Weight Sodium 168.864 Chloride kg, Total 0.103 Volume: MEQ/ML / 1,000, Sodium Start Lactate date: 0.028 08/15/15 MEQ/ML 10:34:00, Injectable Duration: Solution 30 day, Stop date: 09/14/15 10:33:00 Hydromorpho 2014-08 No 0.5 mg, Mem oria ne 2-17 0.5 mL, l 16:34: Route: IV, [place] 00 Drug form: INJ, Q3H, Dosing Weight [...] 2-17 not exceed l 16:34: 4 gm/day. [place] 00 (Same as: Tylenol) Metoprolol 2014-08 No Notes: Memor ia 2-17 (Same as: l 16:34: Lopressor) Push over 2 minutes Calcium 2014-08 No 1,000 mL, Memor ia Chloride 2-17 Rate: 125 l 0.0014 16:34: ml/hr, MEQ/ML / 00 Infuse Potassium over: 8 [...] ia 2-17 Route: l 16:23: IVP, ONCE, [place] 00 Dosing Weight 168.864, kg, PRN Nausea & Vomiting, Start date: 08/15/15 10:23:00 Promethazin 2014-08 No 6.25 mg, Me moria e 2-17 Route: l 16:23: IVPB, [place] 00 ONCE, Dosing Weight 168.864, kg, PRN Nausea & Vomiting, Start date: 08/15/15 10:23:00 Flumazenil 2014-08 No 0.2 mg, Henok vane 2-17 Route: l 16:23: IVP, PRN, Dosing Weight 168.864, kg, PRN Benzodiaze pine Reversal, Initial dose, Start date: 08/15/15 10:23:00, Duration: 30 day, Stop date: 09/14/15 10:22:00 Fentanyl 2014-08 No 25 Memoria 2-17 microgram, l 16:23: Route: [place] 00 IVP, Q5Min, Dosing Weight 168.864, kg, PRN Pain Score 4-6, Start date: 08/15/15 10:23:00, Duration: 4 doses or times, Stop date: Limited # of times Hydromorpho 2014-08 No 0.5 mg, Mem oria ne 2-17 Route: l 16:23: IVP, [place] 00 Q5Min, Dosing Weight 168.864, kg, PRN Pain Score 7-10, Start date: 08/15/15 10:23:00, Duration: 4 doses or times, Stop date: Limited # of times Naloxone 2014-08 No 0.04 mg, Memor ia 2-17 Route: l 16:23: IVP, [place] 00 Q2MIN, Dosing Weight 168.864, kg, PRN Narcotic Reversal, Start date: 08/15/15 10:23:00, Duration: 8 doses or times, Stop date: Limited # of times Ondansetron 2014-08 No 4 mg, Memor ia 2-17 Route: l 16:23: IVP, ONCE, Dosing Weight 168.864, kg, PRN Nausea & Vomiting, Start date: 08/15/15 10:23:00 Promethazin 2014-08 No 6.25 mg, Me moria e 2-17 Route: l 16:23: IVPB, [place] 00 ONCE, Dosing Weight 168.864, kg, PRN Nausea & Vomiting, Start date: 08/15/15 10:23:00 Flumazenil 2014-08 No 0.2 mg, Henok vane 2-17 Route: l 16:23: IVP, PRN, [place] 00 Dosing Weight 168.864, kg, PRN Benzodiaze pine Reversal, Initial dose, Start date: 08/15/15 10:23:00, Duration: 30 day, Stop date: 09/14/15 10:22:00 Fentanyl 2014-08 No 25 Memoria 2-17 microgram, l 16:23: Route: [place] 00 IVP, Q5Min, Dosing Weight 168.864, kg, PRN Pain Score 4-6, Start date: 08/15/15 10:23:00, Duration: 4 doses or times, Stop date: Limited # of times Hydromorpho 2014-08 No 0.5 mg, Mem oria ne 10-16 Route: l 16:23: IVP, [place] 00 Q5Min, Dosing Weight 168.864, kg, PRN Pain Score 7-10, Start date: 08/15/15 10:23:00, Duration: 4 doses or times, Stop date: Limited # of times Naloxone 2014-08 No 0.04 mg, Memor ia 2-17 Route: l 16:23: IVP, [place] 00 Q2MIN, Dosing Weight 168.864, kg, PRN [...] moria e 2-17 Route: l 16:23: IVPB, [place] 00 ONCE, Dosing Weight 168.864, kg, PRN Nausea & Vomiting, Start date: 08/15/15 10:23:00 Flumazenil 2014-08 No 0.2 mg, Henok vane 2-17 Route: l 16:23: IVP, PRN, [place] 00 Dosing Weight 168.864, kg, PRN Benzodiaze pine Reversal, Initial dose, Start date: 08/15/15 10:23:00, Duration: 30 day, Stop date: 09/14/15 10:22:00 Fentanyl 2014- No 25 Memoria 2-17 microgram, l 16:23: [...] 2-17 Rate: 25 l 0.0014 13:59: ml/hr, [place] MEQ/ML / 00 Infuse Potassium over: 40 Chloride hr, Route: 0.004 IV, Dosing MEQ/ML / Weight 170 Sodium kg, Total Chloride Volume: 0.103 1,000, MEQ/ML / Start Sodium date: Lactate 08/15/15 0.028 7:59:00, MEQ/ML Duration: Injectable 30 day, Solution Stop date: 09/14/15 7:58:00 Calcium 2014-08 No 1,000 mL, Memor ia Chloride 2-17 Rate: 25 l 0.0014 13:59: ml/hr, [place] MEQ/ML / 00 Infuse Potassium over: 40 [...] Memoria 2-14 Same as: l 16:00: Emend [place] 00 restricted to the Hematology /Oncology service for high and moderate emetogenic regimen according to ASCO Guidelines [place] h Only for Chemothera py-Induced nausea & vomiting heparin 2014-08 No Notes: Memoria sodium, 2-14 porcine l porcine 16:00: heparin [place] 2500 UNT/ML 00 Injectable Solution Cefazolin 2014-08 No Notes: Memori a 2-14 Same as: l 16:00: Ancef [place] 00 Emend 2014-08 No Notes: Memoria 2-14 Same as: l 16:00: Emend [place] 00 restricted to the Hematology /Oncology service for high and moderate emetogenic regimen according to ASCO Guidelines [place] h Only for Chemothera py-Induced nausea & vomiting heparin 2014-08 No Notes: Memoria sodium, 2-14 porcine l porcine 16:00: heparin [place] 2500 UNT/ML 00 Injectable Solution Cefazolin 2014-08 No Notes: Memori a 2-14 Same as: l 16:00: Ancef [place] 00 Emend 2014-08 No Notes: Memoria 2-14 Same as: l 16:00: Emend [place] 00 restricted to the Hematology /Oncology service for high and moderate emetogenic regimen according to ASCO Guidelines [place] Only for Chemothera py-Induced nausea & vomiting heparin 2014-08 No Notes: Memoria sodium, 2-14 porcine l porcine 16:00: heparin [place] 2500 UNT/ML 00 Injectable Solution Cefazolin 2014-08 No Notes: Memori a 2-14 Same as: l 16:00: Ancef [place] 00 Omeprazole 2014-08 Yes 40 mg = [...] l MG / 15:44: 30 tab, 0 [place] Lisinopril 00 Refill(s) 20 MG Oral Tablet Melatonin 2014-08 Yes 1 mg = 1 Me moria mg oral 2-14 tab, PO, l tablet 15:44: Bedtime, [place] 00 PRN for insomnia, # 90 tab, 0 Refill(s) Depo-Regional Rec[employer]iter 2014-08 Yes 150 mg = 1 Memoria [...] for insomnia, # 90 tab, 0 Refill(s) Depo-Regional Rec[employer]iter 2014-08 Yes 150 mg = 1 Memoria a 2-14 mL, IM, l Contracepti 15:44: q3mo, # 1 H ermann ve 150 00 mL, 0 mg/mL Refill(s) intramuscul ar suspension Hydrochloro 2014-08 Yes 1 tab, PO, Memoria thiazide 25 2-14 Daily, # l MG / 15:44: 30 tab, 0 [place] Lisinopril 00 Refill(s) 20 MG Oral Tablet Melatonin 2014-08 Yes 1 mg = 1 Me moria mg oral 2-14 tab, PO, l tablet 15:44: Bedtime, [place] 00 PRN for insomnia, # 90 tab, 0 Refill(s) Depo-Regional [employer]iter 2014-08 Yes 150 mg = 1 Memoria a 2-14 mL, IM, l Contracepti 15:44: q3mo, # 1 H ermann ve 150 00 mL, 0 mg/mL Refill(s) intramuscul ar suspension [id number] 2014-08 No 1,000 mL, Memori a 1,000 mL 2-14 Rate: 125 l 15:13: ml/hr, [place] 00 Infuse over: 8 hr, Route: IV, Dosing Weight 175.909 kg, Total Volume: 1,000, Start date: 08/12/15 9:13:00, Duration: 4 day, Stop date: 08/16/15 9:12:00 72 HR 2014-08 No Notes: Memoria Scopolamine 2-14 Change l 0.0139 15:13: patch [place] MG/HR 00 every 72 Transdermal hours Patch (Same as: Transderm- Scop) [id number] 2014-08 No 1,000 mL, Memori a 1,000 mL 2-14 Rate: 125 l 15:13: ml/hr, [place] 00 Infuse over: 8 hr, Route: IV, Dosing Weight 175.909 kg, Total Volume: 1,000, Start date: 08/12/15 9:13:00, Duration: 4 day, Stop date: 08/16/15 9:12:00 72 HR 2014-08 No Notes: Memoria Scopolamine 2-14 Change l 0.0139 15:13: patch [place] MG/HR 00 every 72 Transdermal hours Patch (Same as: Transderm- Scop) [id number] 2014-08 No 1,000 mL, Memori a 1,000 mL 2-14 Rate: 125 l 15:13: ml/hr, [place] 00 Infuse over: 8 hr, Route: IV, Dosing Weight 175.909 kg, Total Volume: 1,000, Start date: 08/12/15 9:13:00, Duration: 4 day, Stop date: 08/16/15 9:12:00 72 HR 2014-08 No Notes: Memoria Scopolamine 2-14 Change l 0.0139 15:13: patch [place] MG/HR 00 every 72 Transdermal hours Patch (Same as: Transderm- Scop) Naloxone 2014-08 No 0.1 mg, Memori a 0-12 Route: l 14:25: IVP, [place] 00 Q2MIN, Dosing Weight 175.909, kg, PRN Narcotic Reversal, Start date: 06/10/15 9:25:00, Duration: 4 doses or times, Stop date: Limited # of times Flumazenil 2014-08 No 0.1 mg, Henok vane 0-12 Route: l 14:25: IVP, [place] 00 Q5Min, Dosing Weight 175.909, kg, PRN Other -See Comment, Start date: 06/10/15 9:25:00, Duration: 30 day, Stop date: 07/10/15 8:24:00 Naloxone 2014- No 0.1 mg, Memori a 0-12 Route: l 14:25: IVP, [place] 00 Q2MIN, Dosing Weight 175.909, kg, PRN Narcotic Reversal, Start date: 06/10/15 9:25:00, Duration: 4 doses or times, Stop date: Limited # of times Flumazenil 2014- No 0.1 mg, Henok vane 0-12 Route: l 14:25: IVP, [place] 00 Q5Min, Dosing Weight 175.909, kg, PRN Other -See Comment, Start date: 06/10/15 9:25:00, Duration: 30 day, Stop date: 07/10/15 8:24:00 Naloxone 2014- No 0.1 mg, Memori a 0-12 Route: l 14:25: IVP, [place] 00 Q2MIN, Dosing Weight 175.909, kg, PRN Narcotic Reversal, Start date: 06/10/15 9:25:00, Duration: 4 doses or times, Stop date: Limited # of times Flumazenil 2014- No 0.1 mg, Henok vane 0-12 Route: l 14:25: IVP, [place] 00 Q5Min, Dosing Weight 175.909, kg, PRN Other -See Comment, Start date: 06/10/15 9:25:00, Duration: 30 day, Stop date: 07/10/15 8:24:00 Sodium 2015-1 No 1,000 mL, Memori a Chloride 0-12 Rate: 25 l 0.154 12:06: ml/hr, [place] MEQ/ML 00 Infuse Injectable over: 40 Solution hr, Route: IV, Dosing Weight 175.909 kg, Total Volume: 1,000, Start date: 06/10/15 7:06:00, Duration: 30 day, Stop date: 07/10/15 7:05:00 Sodium 2015-1 No 1,000 mL, Memori a Chloride 0-12 Rate: 25 l 0.154 12:06: ml/hr, [place] MEQ/ML 00 Infuse Injectable over: 40 Solution [...] l Oral Tablet 19:35: BID, # 120 [place] [Trileptal] 00 tab, 0 Refill(s) Hydrochloro 2014-08 No 1 tab, PO, Memoria thiazide 25 0-09 Daily, # l MG / 19:35: 30 tab, 0 [place] Lisinopril 00 Refill(s) 20 MG Oral Tablet oxcarbazepi 2014-08 Yes 600 mg = 2 Memoria ne 300 MG 0-09 tab, PO, l Oral Tablet 19:35: BID, # 120 [place] [Trileptal] 00 tab, 0 Refill(s) Hydrochloro 2014-08 No 1 tab, PO, Memoria thiazide 25 0-09 Daily, # l MG / 19:35: 30 tab, 0 [place] Lisinopril 00 Refill(s) 20 MG Oral Tablet oxcarbazepi 2014-08 Yes 600 mg = 2 Memoria ne 300 MG 0-09 tab, PO, l Oral Tablet 19:35: BID, # 120 [place] [Trileptal] 00 tab, 0 Refill(s) atomoxetine 2014-08 [...] 0 Memori a 0-09 Refill(s) l 19:31: Wellbutrin 2014-08 Yes PO, 0 Memori a 0-09 Refill(s) l 19:31: [place] 00 Wellbutrin 2014-08 Yes PO, 0 Memori a 0-09 Refill(s) l 19:31: benzonatate benzonatate No benzonatat [facility] 200 mg [...] Date Status [facility]:00:00 [facility] COVID19 2021-04-05 Completed [facility] VACCINATION 00:00:00 [facility] pneumococcal 2015-08-16 Completed [facility] 23-valent 18:10:35 vaccine<sup>1</sup> pneumococcal 2015-08-16 Completed [facility] 23-valent 18:10:35 vaccine<sup>1</sup> pneumococcal 2015-08-16 Completed [facility] 23-valent 18:10:35 vaccine<sup>1</sup> Vital Signs Vital Name Observation Time Observation Value Comments Source BP Diastolic 2022-04-08 00:00:00 90 mm[Hg] [facility] Height 2022-04-08 00:00:00 66 [in_i] [facility] BMI (Body Mass 2022-04-08 00:00:00 53.7 kg/m2 [facility] Medical Index) BP Systolic 2022-04-08 00:00:00 142 mm[Hg] [facility] Body Weight 2022-04-08 00:00:00 333 [lb_av] [facility] BP Diastolic 2021-12-18 00:00:00 86 mm[Hg] [facility] Height 2021-12-18 00:00:00 66 [in_i] [facility] BMI (Body Mass 2021-12-18 00:00:00 54.7 kg/m2 [facility] Medical Index) BP Systolic 2021-12-18 00:00:00 140 mm[Hg] [facility] Body Weight 2021-12-18 00:00:00 339 [lb_av] [facility] BP Diastolic 2021-11-25 00:00:00 88 mm[Hg] [facility] BP Systolic 2021-11-25 00:00:00 138 mm[Hg] [facility] Body Weight 2021-11-25 00:00:00 338 [lb_av] [facility] Systolic blood 2022-06-12 02:38:00 128 mm[Hg] [facility] pressure Diastolic blood 2022-06-12 02:38:00 77 mm[Hg] [facility] pressure Heart rate 2022-06-12 02:38:00 63 /min [facility] Respiratory rate 2022-06-12 02:38:00 18 /min [facility] Oxygen saturation in 2022-06-12 02:38:00 97 /min [facility] Arterial blood by Pulse oximetry Body temperature 2022-06-11 23:40:00 36.5 Gabrielle [facility] Body height 2022-06-11 23:38:00 170.2 cm [facility] Body weight 2022-06-11 23:38:00 145.151 kg [facility] BMI 2022-06-11 23:38:00 50.12 kg/m2 [facility] Systolic (mm Hg) 2022-03-19 07:00:00 Henok rial [place] Diastolic (mm Hg) 2022-03-19 07:00:00 Mem orial Dav Respitory Rate 2022-03-19 07:00:00 Memori al Dav Heart Rate 2022-03-19 07:00:00 [facility] Dav Height 2022-03-19 03:25:00 170.18 cm [facility] [place] BMI Calculated 2022-03-19 03:25:00 Memori al Dav Weight 2022-03-19 03:25:00 [facility] [place] Systolic (mm Hg) 2022-03-19 03:25:00 Henok rial [place] Diastolic (mm Hg) 2022-03-19 03:25:00 [facility] Heart Rate 2022-03-19 03:25:00 [facility] Respitory Rate 2022-03-19 03:25:00 [facility] Temperature Oral (F) 2022-03-19 03:25:00 98.4 F [facility] Temperature Oral (F) 2022-03-14 04:45:00 99.1 F [facility] Heart Rate 2022-03-14 04:45:00 [facility] Respitory Rate 2022-03-14 04:45:00 [facility] Systolic (mm Hg) 2022-03-14 04:45:00 [facility] [place] Diastolic (mm Hg) 2022-03-14 04:45:00 [facility] [place] Weight 2022-03-14 00:40:00 [facility] Systolic (mm Hg) 2022-03-14 00:40:00 [facility] [place] Diastolic (mm Hg) 2022-03-14 00:40:00 [facility] Heart Rate 2022-03-14 00:40:00 [facility] [place] Respitory Rate 2022-03-14 00:40:00 [facility] Temperature Oral (F) 2022-03-14 00:40:00 100 F [facility] [place] Systolic (mm Hg) 2021-01-21 01:00:00 [facility] Diastolic (mm Hg) 2021-01-21 01:00:00 [facility] Heart Rate 2021-01-21 01:00:00 [facility] [place] Respitory Rate 2021-01-21 01:00:00 [facility] Temperature Oral (F) 2021-01-21 01:00:00 98.5 F [facility] Height 2021-01-20 21:08:00 170.18 cm [facility] BMI Calculated 2021-01-20 21:08:00 [facility] Weight 2021-01-20 21:08:00 [facility] [place] Systolic (mm Hg) 2021-01-20 21:08:00 [facility] [place] Diastolic (mm Hg) 2021-01-20 21:08:00 [facility] Heart Rate 2021-01-20 21:08:00 [facility] Respitory Rate 2021-01-20 21:08:00 [facility] [place] Temperature Oral (F) 2021-01-20 21:08:00 98.7 F [facility] [place] Weight 2015-09-19 21:05:00 [facility] Temperature Oral (F) 2015-09-19 20:45:00 97.7 F [facility] [place] Systolic (mm Hg) 2015-09-19 20:45:00 [facility] [place] Diastolic (mm Hg) 2015-09-19 20:45:00 [facility] Heart Rate 2015-09-19 20:45:00 [facility] [place] Respitory Rate 2015-09-19 20:45:00 [facility] Respitory Rate 2015-09-19 18:54:00 [facility] Systolic (mm Hg) 2015-09-19 18:54:00 Henok rial Dav Diastolic (mm Hg) 2015-09-19 18:54:00 Mem o[facility] Systolic (mm Hg) 2015-09-19 18:39:00 Henok rial [place] Diastolic (mm Hg) 2015-09-19 18:39:00 Mem o[facility] [place] Respitory Rate 2015-09-19 18:39:00 [facility] Heart Rate 2015-09-19 18:04:00 [facility] Temperature Oral (F) 2015-09-19 13:40:00 97.8 F [facility] Heart Rate 2015-09-19 13:40:00 [facility] [place] Temperature Oral (F) 2015-09-19 11:08:00 97.9 F [facility] [place] Weight 2015-09-18 05:03:00 [facility] [place] Weight 2015-09-18 00:07:00 [facility] [place] Height 2015-09-18 00:07:00 170.18 cm [facility] BMI Calculated 2015-09-18 00:07:00 [facility] Temperature Oral (F) 2015-08-26 22:06:00 98 F [facility] [place] Heart Rate 2015-08-26 22:06:00 [facility] [place] Respitory Rate 2015-08-26 22:06:00 [facility] Systolic (mm Hg) 2015-08-26 22:06:00 Henok rial Dav Diastolic (mm Hg) 2015-08-26 22:06:00 Mem o[facility] Temperature Oral (F) 2015-08-26 20:46:00 98.0 F [facility] [place] Systolic (mm Hg) 2015-08-26 20:46:00 Henok rial [place] Diastolic (mm Hg) 2015-08-26 20:46:00 Mem orial Dav Respitory Rate 2015-08-26 20:46:00 [facility] [place] Heart Rate 2015-08-26 20:46:00 [facility] Weight 2015-08-26 16:38:00 [facility] BMI Calculated 2015-08-26 16:38:00 [facility] Respitory Rate 2015-08-26 16:38:00 [facility] Heart Rate 2015-08-26 16:38:00 [facility] [place] Systolic (mm Hg) 2015-08-26 16:38:00 Henok rial [place] Diastolic (mm Hg) 2015-08-26 16:38:00 [facility] [place] Height 2015-08-26 16:38:00 170.18 cm [facility] Temperature Oral (F) 2015-08-26 16:38:00 97.9 F [facility] [place] Systolic (mm Hg) 2015-08-16 18:33:00 Henok rial Dav Diastolic (mm Hg) 2015-08-16 18:33:00 [facility] Heart Rate 2015-08-16 18:33:00 [facility] Respitory Rate 2015-08-16 18:33:00 [facility] Temperature Oral (F) 2015-08-16 18:33:00 97.9 F [facility] [place] Respitory Rate 2015-08-16 14:00:00 [facility] Systolic (mm Hg) 2015-08-16 14:00:00 Henok rial Dav Diastolic (mm Hg) 2015-08-16 14:00:00 Mem [facility] Temperature Oral (F) 2015-08-16 14:00:00 98.0 F [facility] [place] Heart Rate 2015-08-16 14:00:00 [facility] Temperature Oral (F) 2015-08-16 10:20:00 98.1 F [facility] [place] Heart Rate 2015-08-16 10:20:00 [facility] [place] Systolic (mm Hg) 2015-08-16 10:20:00 Henok rial [place] Diastolic (mm Hg) 2015-08-16 10:20:00 [facility] [place] Respitory Rate 2015-08-16 10:20:00 [facility] [place] Height 2015-08-15 17:30:00 170.18 cm [facility] Weight 2015-08-15 17:30:00 [facility] BMI Calculated 2015-08-15 17:30:00 [facility] Weight 2015-08-15 12:45:00 [facility] Height 2015-08-12 15:32:00 170.18 cm [facility] Weight 2015-08-12 15:32:00 [facility] [place] BMI Calculated 2015-08-12 15:32:00 [facility] [place] Respitory Rate 2015-06-10 14:07:00 [facility] [place] Systolic (mm Hg) 2015-06-10 14:07:00 Henok rial Dav Diastolic (mm Hg) 2015-06-10 14:07:00 [facility] Systolic (mm Hg) 2015-06-10 13:52:00 Henok rial [place] Diastolic (mm Hg) 2015-06-10 13:52:00 Mem o[facility] Respitory Rate 2015-06-10 13:52:00 [facility] [place] Systolic (mm Hg) 2015-06-10 13:37:00 Henok rial [place] Diastolic (mm Hg) 2015-06-10 13:37:00 Daily [facility] Respitory Rate 2015-06-10 13:37:00 Lucy Hannah Weight 2015-06-07 19:28:00 [facility] BMI Calculated 2015-06-07 19:28:00 Lucy Hannah Height 2015-06-07 19:28:00 170.18 cm [facility] Procedures Procedure Date / Time Performing Source Performed Clinician URINE CULTURE 2022-06-12 Shayne Menezes 02:11:00 [facility] URINALYSIS 2022-06-12 Shayne Menezes 02:11:00 [facility] HCG QUALITATIVE, URINE SCREEN 2022-06-12 Shayne Menezes Wa thodist 02:11:00 [facility] INFLUENZA ANTIGEN 2022-06-12 Shayne Menezes 00:07:00 [facility] CBC WITH PLATELET AND DIFFERENTIAL 2022-06-12 Amaury Menezes 00:07:00 [facility] COMPREHENSIVE METABOLIC PANEL 2022-06-12 Shayne Menezes thodist 00:07:00 [facility] ESTIMATED GFR 2022-06-12 Shayne Menezes 00:07:00 [facility] MANUAL DIFFERENTIAL 2022-06-12 Shayne Menezes 00:07:00 [facility] XR CHEST 1 VW 2022-06-11 Shayne Menezes 23:55:13 [facility] MRI PITUITARY W WO CONTRAST 2021-12-05 Kaycee Longo Meth odist 16:05:12 [facility] MRI, pituitary, w/wo contrast 2021-11-27 [facility] 00:00:00 US PELVIC TRANSABDOMINAL 2021-11-[address] 07:30:53 [facility] US PELVIC TRANSVAGINAL 2021-11-09 Edin Lakhani 07:30:53 [facility] HCG QUALITATIVE, SERUM SCREEN 2021-11-09 Me Kar thodist 03:50:00 [facility] HC COMPLETE BLD COUNT W/AUTO DIFF 2021-11-09 Edin Lakhani 03:35:00 [facility] PROTHROMBIN TIME WITH INR 2021-11-09 Jack Lakhani ist 03:35:00 [facility] PARTIAL THROMBOPLASTIN TIME (PTT) 2021-11-09 Edin Lakhani 03:35:00 [facility] COMPREHENSIVE METABOLIC PANEL 2021-11-09 Kar Wa thodist 03:35:00 [facility] ESTIMATED GFR 2021-11-09 Edin Lakhani 03:35:00 [facility] Gastric Bypass for Obesity 2014-08-30 [facility] 00:00:00 Cholecystectomy 2014-08-30 [facility] 00:00:00 Arthroscopy of knee<sup>1</sup> [facility] Esophagogastroduodenoscopy Memor ial Dav Banding of gastric varices Memor ial Dav Plan of Care Planned Activity Planned Date Details Comments Source Future Scheduled Test 2022-10-17 Hepatitis C Method [facility] 21:28:36 screening (procedure) [code = 726292464] Future Scheduled Test 2022-10-17 Screening for [facility] 21:28:36 malignant neoplasm of cervix (procedure) [code = 996765778] Future Scheduled Test 2022-10-17 COVID-19 VACCINE ([address] [place] [address] 21:28:36 - Booster for Ron series) [code = COVID-19 VACCINE (3 - Booster for Ron series)] Future Scheduled Test 2022-10-17 INFLUENZA VACCINE [facility]ly [facility] 21:28:36 [code = INFLUENZA VACCINE] Future Scheduled Test 2022-10-17 Hepatitis C Method [facility] 21:28:36 screening (procedure) [code = 839432094] Future Scheduled Test 2022-10-17 Screening for [facility] 21:28:36 malignant neoplasm of cervix (procedure) [code = 177681811] Future Scheduled Test 2022-10-17 COVID-19 VACCINE ([address] [place] [address] 21:28:36 - Booster for Ron series) [code = COVID-19 VACCINE (3 - Booster for Ron series)] Future Scheduled Test 2022-10-17 INFLUENZA VACCINE [facility] 21:28:36 [code = INFLUENZA VACCINE] Diagnostic Test 2021-12-18 unlisted lab [code [facility] Pending 00:00:00 = unlisted lab] Future Appointment 2022-12-07 Kaycee Longo, [address] [facility] 00:00:00 [facility]; [address], [place] [address] Encounters Start End Encounter Admission Attending Care Care Encounter Source Date/Time Date/Time Type Type Clinicians Facility Department ID 2022-05-13 Outpatient [facility] [id number] [place] 08:18:57 [id number] [facility] 2022-05-07 Outpatient [facility] [id number] [place] 12:12:06 [id number] [facility] 2022-05-06 Outpatient [facility] [id number] [place] 07:02:43 [id number] [facility] 2022-03-26 Outpatient [facility] [id number] [place] 11:04:27 [id number] [facility] 2022-02-06 Outpatient [facility] [id number] [place] 09:50:06 [id number] [facility] 2021-11-28 Outpatient [facility] [id number] [place] 13:41:01 [id number] [facility] [employer] 2021-11-26 [facility] [id number] [place] 12:18:16 [id number] [facility] 2021-11-24 Outpatient [facility] [id number] [place] 06:46:20 [id number] [facility] 2016-09-10 Inpatient [facility] [id number] Johnson rris 18:31:18 Health 2016-09-03 Inpatient [facility] [id number] Johnson rris 19:49:43 Health 2016-09-02 Inpatient [facility] [id number] Johnson rris 14:46:00 [facility] 2016-08-28 Inpatient [facility] [id number] rris 12:49:08 Health 2016-08-25 Inpatient [facility] [id number] Johnson rris 18:38:06 Health 2016-08-25 Inpatient [facility] [id number] Johnson rris 00:00:00 [facility] 2016-08-25 Inpatient [facility] [id number] Johnson rris 00:00:00 [facility] 2016-08-24 Inpatient [facility] [id number] Johnson rris 12:38:32 Health 2016-08-23 Inpatient [facility] [id number] Johnson rris 23:40:15 Health 2016-08-23 Inpatient [facility] [id number] Johnson rris 18:01:15 Health 2016-08-23 Inpatient [facility] [id number] Johnson rris 05:23:14 Health 2016-08-23 Inpatient [facility] [id number] Johnson rris 01:38:20 Health 2016-08-23 Inpatient [facility] [id number] Johnson rris 01:10:06 Health 2016-08-22 Inpatient [facility] [id number] Johnson rris 18:58:47 Health 2022-10-19 2022-10-19 Outpatient [facility] [id number] [place] 15:42:38 15:42:38 [id number] [place] 2022-08-06 2022-08-06 Outpatient [facility] [id number] [place] 00:00:00 00:00:00 [facility] 2022-06-17 2022-06-17 Outpatient [facility] [id number] [place] 00:00:00 00:00:00 [facility] 2022-06-11 2022-06-11 Emergency Hoang, 1.2.840.1 [id number] Methodi 18:26:00 22:09:[address] 3.430.2.7 Hospit a .3.650302 l .8 2022-06-11 2022-06-11 Emergency Hoang, 1.2.840.1 [id number] Methodi 18:26:00 22:09:[address] 3.430.2.7 Hospit a .3.146933 l .8 2022-06-11 2022-06-11 Travel 1.2.840.1 1.2.682.301 [id number] Methodi 00:00:00 00:00:[address] 3.430.2.7 0.2.7.3.698 Ho spita .3.003991 084.8 l .8 2022-06-11 2022-06-11 Travel 1.2.840.1 1.2.850.617 [id number] Methodi 00:00:00 00:00:[address] 3.430.2.7 0.2.7.3.698 Ho spita .3.432456 084.8 l .8 2022-05-26 2022-05-26 Outpatient [facility] [id number] [place] 00:00:00 00:00:00 Health 2022-05-25 2022-05-25 Outpatient [facility] PRIV PRIV [id number] [facility] 00:00:00 00:00:00 _Diggs_R [id number] Medic al 2022-05-25 2022-05-25 Outpatient CHAPIN, [facility] [id number] [place] 00:00:00 00:00:00 [facility] 2022-05-13 2022-05-13 Outpatient JUSTINE, [facility] [id number] [place] 08:26:30 11:29:53 [facility] 2022-05-01 2022-05-01 Outpatient [facility] [id number] [place] 00:00:00 00:00:00 [facility] 2022-04-14 2022-04-14 Outpatient [facility] [id number] [place] 00:00:00 00:00:00 [facility] 2022-04-14 2022-04-14 [facility] [id number] [place] 00:00:00 00:00:[address] [facility] 2022-04-08 2022-04-08 Outpatient [facility] PRIV PRIV [id number] [facility] 00:00:00 00:00:00 _Diggs_R [id number] Medic al 2022-04-08 2022-04-08 Kaycee [facility]IV [facility] 10 [facility] 00:00:00 00:00:00 Longo, Health - Medic al WAX BLEACHER: [address], [address], [place] [address] , Ph. 2022-04-08 2022-04-08 Outpatient Longo, PRIV PRIV [id number] 00:00:00 00:00:00 Kaycee [id number] 2022-04-06 2022-04-06 [facility] [id number] [place] 13:48:21 14:32:31 [facility] 2022-03-31 2022-03-31 Outpatient [facility] [id number] [place] 00:00:00 00:00:00 [facility] 2022-03-19 2022-03-19 Emergency [facility] [id number] Memoria 03:20:40 07:05:00 [place] 02 [facility] 2022-03-19 2022-03-19 Emergency nullFlavo [facility] [id number] Memoria 03:20:40 07:05:00 [facility] [place] 02 [facility] 2022-03-18 2022-03-19 Outpatient Cici, MHPL MHPL [id number] 22:20:40 02:05:00 Reeva 02 Bonifacio 2022-03-18 2022-03-19 Emergency E CICI, MHBL MHBL [id number] MHBL 22:20:00 02:05:00 REEVA 2022-03-14 2022-03-14 Emergency [facility]Flavo [facility] [id number] Memoria 00:15:07 05:00:00 r Dav 01 [facility] 2022-03-14 2022-03-14 Emergency nullFlavo [facility] [id number] Memoria 00:15:07 05:00:00 r Dav 01 [facility] 2022-03-13 2022-03-14 Outpatient Martha, ALLENPL MHPL [id number] 19:15:07 00:00:00 Abdiwahab 01 [facility] 2022-03-13 2022-03-14 Outpatient Martha, ALLENPL MHPL [id number] 19:15:07 00:00:00 Abdiwahab 01 [facility] 2022-03-13 2022-03-14 Emergency E MARTHA, MHBL BL [id number] MHBL 19:15:00 00:00:00 ABDIWAB 2022-03-11 2022-03-11 [facility]patient [facility] [id number] [place] 11:25:00 11:25:00 HANA 0713 da [facility] 2022-02-24 2022-02-24 Outpatient SUZETTE [facility] [id number] [place] 09:53:24 10:41:58 [facility] 2022-02-24 2022-02-24 Outpatient [facility] [id number] [place] 10:34:06 10:41:26 Health 2022-02-23 2022-02-24 [facility] [id number] [place] 14:37:42 07:15:27 [facility] 2022-02-24 2022-02-24 Outpatient SUZETTE, [facility] [id number] [place] 00:00:00 00:00:00 [facility] 2022-02-10 2022-02-10 [facility] [id number] [place] 00:00:00 00:00:[address] [facility] 2022-02-10 2022-02-10 [facility] [id number] [place] 00:00:00 00:00:00 [facility] 2022-02-05 2022-02-06 Emergency 1 [facility] [id number] [place] 23:16:00 01:00:[address] [facility] 2022-02-05 2022-02-06 [facility] [id number] [place] 23:16:00 01:00:[address] [facility] 2022-02-05 2022-02-05 Emergency [facility] [id number] [place] 23:32:16 23:55:28 [facility] 2022-02-05 2022-02-05 Emergency HERMES, [facility] [id number] [place] 21:30:24 21:41:51 [facility] 2022-02-04 2022-02-04 Outpatient CYNTHIA, [facility] [id number] [place] 13:16:26 14:54:[facility] 2022-01-20 2022-01-20 Outpatient SUZETTE, [facility] [id number] [place] 08:08:28 09:07:11 [facility] 2022-01-20 2022-01-20 Outpatient [facility] [id number] [place] 08:40:24 08:55:12 [facility] 2022-01-20 2022-01-20 Outpatient [facility] [id number] [place] 00:00:00 00:00:00 [facility] 2022-01-20 2022-01-20 [facility] [id number] [place] 00:00:00 00:00:00 [facility] 2022-01-02 2022-01-02 Outpatient KATHRYN ZELAYA [facility] [id number] [place] 00:00:00 00:00:00 [facility] 2021-12-30 2021-12-30 [facility] [id number] [place] 09:12:55 10:28:29 [facility] 2021-12-30 2021-12-30 Outpatient [facility] [id number] [place] 09:43:20 09:55:06 [facility] 2021-12-30 2021-12-30 Outpatient SUZETTE, [facility] [id number] [place] 00:00:00 00:00:00 [facility] 2021-12-18 2021-12-18 Outpatient GC_[facility] PRIV PRIV [id number] [facility] 11:17:00 11:17:00 _Diggs_R [id number] Medic al 2021-12-18 2021-12-18 Outpatient GC_[facility] PRIV PRIV [id number] [facility] 11:17:00 11:17:00 _Diggs_R [id number] Medic al 2021-12-18 2021-12-18 Outpatient _[facility] PRIV PRIV [id number] [facility] 11:17:00 11:17:00 _Diggs_R [id number] Medic al 2021-12-18 2021-12-18 Outpatient Longo, PRIV PRIV [id number] 00:00:00 00:00:00 Kaycee [id number] 2021-12-18 2021-12-18 Kaycee [facility]IV [facility]:00:00 00:00:00 Longo, Health - Medic al WAX BLEACHER: [address], [address], [place] [address] , Ph. 2021-12-16 2021-12-16 Outpatient 3 PRESLEY PERAZA [facility] [id number] [place] 13:29:29 14:47:42 Health 2021-12-16 2021-12-16 Outpatient PRESLEY PERAZA [facility] [id number] [place] 13:29:29 14:47:42 Health 2021-12-16 2021-12-16 Outpatient PRESLEY PERAZA [facility] [id number] [place] 00:00:00 00:00:00 [facility] 2021-12-05 2021-12-05 [facility] Chloé 1.2.840.1 [id number] Methodi 09:34:18 23:59:00 Encounter Laith 22088.1.1 729 s t Peter 3.430.2.7 Hospit a .3.102146 l .8 2021-12-05 2021-12-05 [facility] Chloé, 1.2.840.1 [id number] Methodi 09:34:18 23:59:00 Encounter Laith 83706.1.1 729 s t Peter 3.430.2.7 Hospit a .3.324614 l .8 2021-12-05 2021-12-05 Travel 1.2.840.1 1.2.955.113 [id number] Methodi 00:00:00 00:00:[address] 3.430.2.7 0.2.7.3.698 Ho spita .3.378239 084.8 l .8 2021-12-05 2021-12-05 Travel 1.2.840.1 1.2.722.762 8166 [id number] Methodi 00:00:00 00:00:[address] 3.430.2.7 0.2.7.3.698 Ho spita .3.818640 084.8 l .8 2021-11-27 2021-11-27 Outpatient _[facility] PRIV PRIV [id number] [facility] 01:52:00 01:52:00 _Diggs_R [id number] Medic ma 2021-11-27 2021-11-27 Travel 1.2.840.1 1.2.200.054 5705 [id number] Methodi 00:00:00 00:00:[address] 3.430.2.7 0.2.7.3.698 Ho spita .3.988549 084.8 l .8 2021-11-27 2021-11-27 Transcribe Donta, 1.2.840.1 [id number] Methodi 00:00:00 00:00:00 Orders Kaycee Higgins 27461.1.[address] 3.430.2.7 Hospit a .3.878865 l .8 2021-11-27 2021-11-27 Travel 1.2.840.1 1.2.497.629 [id number] Methodi 00:00:00 00:00:[address] 3.430.2.7 0.2.7.3.698 Ho spita .3.551601 084.8 l .8 2021-11-27 2021-11-27 Transcribe Longo, 1.2.840.1 [id number] [id number] Methodi 00:00:00 00:00:00 Orders Kaycee Higgins 15393.1.[address] 3.430.2.7 Hospit a .3.849228 l .8 2021-11-25 2021-11-25 Outpatient [facility] PRIV PRIV [id number] [facility] 05:22:00 05:22:00 _Diggs_R [id number] Medic al 2021-11-25 2021-11-25 Outpatient [facility] [id number] [place] 00:00:00 00:00:00 [facility] 2021-11-25 2021[facility]11-25 [facility]00 00:00:00 [facility] - Medic al WAX BLEACHER: [address], [address] [place] [address] , Ph. 2021-11-25 2021-11-25 Outpatient Longo, PRIV PRIV [id number] 00:00:00 00:00:00 Kaycee [id number] 2021-11-24 2021-11-24 Outpatient [facility] PRIV PRIV [id number] [facility] 09:14:00 09:14:00 _Diggs_R [id number] Medic al 2021-11-12 2021-11-12 Outpatient [facility] PRIV PRIV [id number] [facility] 10:32:00 10:32:00 _Diggs_R [id number] [facility] 2021-11-11 2021-11-11 [facility] [id number] [place] 15:32:00 17:59:00 [facility] 2021-11-11 2021-11-11 [facility] [id number] [place] 09:22:13 10:07:10 [facility] 2021-11-11 2021-11-11 Outpatient [facility] [id number] [place] 09:43:27 09:47:12 [facility] 2021-11-11 2021-11-11 [place] [id number] [place] 00:00:00 00:00:00 [facility] 2021-11-08 2021-11-09 Emergency Jack-Kerrig 1.2.840.1 [id number] Methodi 21:17:00 03:19:[address] 3.430.2.7 Hospit a .3.597869 l .8 2021-11-08 2021-11-09 Emergency Jack-Kerrig 1.2.840.1 [id number] Methodi 21:17:00 03:19:[address] 3.430.2.7 Hospit a .3.902838 l .8 2021-10-27 2021-10-27 [facility] [id number] [place] 15:38:32 16:13:58 [facility] 2021-10-27 2021-10-27 Outpatient [facility] [id number] [place] 15:28:33 15:53:26 [facility] 2021-10-27 2021-10-27 [facility] [id number] [place] 15:00:16 15:00:16 [facility] 2021-10-27 2021-10-27 [facility] [id number] [place] 00:00:00 00:00:00 [facility] 2021-10-27 2021-10-27 [place] [id number] [place] 00:00:00 00:00:00 [facility] 2021-09-14 2021-09-14 Emergency GABRIELLA JACK [facility] [id number] Sesser 00:00:00 00:00:[address] 2021-08-22 2021-08-22 Emergency SAIGE, [facility] [id number] Sesser 00:00:00 00:00:00 CASH [facility] 2021-07-22 2021-07-22 Outpatient [facility] [id number] [place] 00:00:00 00:00:00 [facility] 2021-07-17 2021-07-17 Outpatient ABOUGHALI, [facility] [id number] [place] 07:38:50 15:27:52 [facility] 2021-05-16 2021-05-16 Outpatient MARYANN, [facility] [id number] [place] 12:55:35 13:20:54 [facility] 2021-04-03 2021-04-03 Outpatient ABOUGHALI, [facility] [id number] [place] 10:24:01 11:40:13 [facility] 2021-04-03 2021-04-03 Outpatient ABOUGHALI, [facility] [id number] [place] 11:20:44 11:27:55 [facility] 2021-04-03 2021-04-03 Outpatient ABOUGHALI, [facility] [id number] [place] 00:00:00 00:00:00 [facility] 2021-02-10 2021-02-10 Outpatient ABOUGHALI, [facility] [id number] [place] 07:38:38 14:43:22 [facility] 2021-01-20 2021-01-21 Emergency nullFlavo [facility] [id number] [place] 21:01:36 01:40:00 r [place] 00 [facility] 2021-01-20 2021-01-21 [facility]Fl[facility] [id number] Memoria 21:01:36 01:40:00 r [place] 00 l [facility] 2021-01-20 2021-01-20 Outpatient Paul [facility] [id number] 16:01:36 20:40:[facility]-01-20 2021-01-20 Emergency E PAUL, [facility] [id number] [facility] 16:01:00 20:40:00 [place] 2021-01-20 2021-01-20 Outpatient NORBERTOALI, [facility] [id number] [place] 10:49:10 12:23:17 [facility] 2021-01-20 2021-01-20 Outpatient [facility] [id number] [place] 11:36:48 11:56:15 [facility] 2021-01-09 2021-01-09 Outpatient SUZETTE, [facility] [id number] [place] 11:01:40 13:18:27 [facility] 2021-01-02 2021-01-02 [id number] [place] 00:00:00 00:00:00 MICHELLE [address] 2020-12-25 2020-12-25 Outpatient LARRY-BURLE [facility] [id number] [place] 00:00:00 00:00:00 Y, GÓMEZ [facility] 2020-12-25 2020-12-25 Outpatient YING GALVAN [facility] [id number] [place] 00:00:00 00:00:00 [facility] 2020-12-10 2020-12-10 Outpatient MOHSEN TATO [facility] [id number] [place] 00:00:00 00:00:00 [facility] 2020-11-28 2020-11-28 Outpatient ABNER MORALES [facility] [id number] [place] 09:52:10 10:35:59 [facility] 2020-11-28 2020-11-28 Outpatient SUZETTE, [facility] [id number] [place] 08:52:57 09:35:01 [facility] 2020-11-28 2020-11-28 Outpatient SUZETTE, [facility] [id number] [place] 00:00:00 00:00:00 [facility] 2020-11-26 2020-11-26 Outpatient LARRY-BURLE [facility] [id number] [place] 10:26:31 12:37:58 Y, GÓMEZ [facility] 2020-11-26 2020-11-26 Outpatient LARRY-BURLE [facility] [id number] [place] 00:00:00 00:00:00 Y, GÓMEZ [facility] 2020-11-22 2020-11-22 Outpatient KITTY [facility] [id number] [place] 09:06:46 09:06:46 [facility] 2020-11-21 2020-11-21 Outpatient MEGAN, [facility] [id number] [place] 00:00:00 00:00:00 [facility] 2020-11-21 2020-11-21 Outpatient WILLIAM, [facility] [id number] [place] 00:00:00 00:00:00 [facility] 2020-11-18 2020-11-18 Outpatient SUZETTE, [facility] [id number] [place] 07:34:19 14:53:54 [facility] 2020-11-14 2020-11-14 Outpatient MEGAN, [facility] [id number] [place] 00:00:00 00:00:00 [facility] 2020-11-12 2020-11-12 Outpatient WILLIAM, [facility] [id number] [place] 19:20:48 23:59:00 [facility] 2020-11-07 2020-11-07 [facility] [id number] [place] 10:15:36 16:17:47 [facility] 2020-11-07 2020-11-07 Outpatient MEGAN, [facility] [id number] [place] 00:00:00 00:00:00 [facility] 2020-11-06 2020-11-06 Outpatient ANDREW, [facility] [id number] [place] 09:10:44 09:31:28 [facility] 2020-11-06 2020-11-06 Outpatient ANDREW, ABNER [facility] [id number] [place] 09:03:03 09:13:38 [facility] 2020-11-06 2020-11-06 Outpatient ANDREW, ABNER [facility] [id number] [place] 00:00:00 00:00:00 [facility] 2020-11-06 2020-11-06 Outpatient JOAN, [facility] [id number] [place] 00:00:00 00:00:00 [facility] 2020-11-04 2020-11-04 [facility] [id number] [place] 07:18:00 08:55:00 [facility] 2020-10-31 2020-10-31 [facility] [id number] [place] 00:00:00 00:00:00 [facility] 2020-10-24 2020-10-24 [facility] [id number] [place] 08:03:09 08:03:09 [facility] 2020-10-23 2020-10-23 Outpatient LAKESHIA [facility] [id number] [place] 07:29:24 12:11:59 Y, GÓMEZ [facility] 2020-10-23 2020-10-23 [facility] [id number] [place] 00:00:00 00:00:00 [facility] 2020-10-23 2020-10-23 Outpatient [facility] [id number] [place] 00:00:00 00:00:00 [facility] 2020-10-17 2020-10-17 [facility] [id number] [place] 00:00:00 00:00:00 [facility] 2020-10-10 2020-10-10 [facility] [id number] [place] 07:17:49 15:53:36 [facility] 2020-10-03 2020-10-03 [facility] [id number] [place] 07:29:37 07:29:37 [facility] 2020-09-26 2020-09-26 [facility] [id number] [place] 07:11:20 07:11:20 [facility] 2020-07-24 2020-07-24 Outpatient [facility] [id number] [place] 00:00:00 00:00:00 [facility] 2020-01-25 2020-01-25 Emergency [facility] [id number] [place] 00:00:00 00:00:00 CASH 919 Jack germain 2019-11-01 2019-11-01 Outpatient [facility] [id number] [place] 00:00:00 00:00:00 [facility] 2019-10-19 2019-10-19 Outpatient [facility] [id number] [place] 00:00:00 00:00:00 [facility] 2019-10-11 2019-10-11 Outpatient [facility] [id number] [place] 00:00:00 00:00:00 Health 2019-09-28 2019-09-28 Outpatient [facility] [id number] [place] 00:00:00 00:00:00 Health 2019-09-22 2019-09-22 Outpatient [facility] [id number] [place] 00:00:00 00:00:00 Health 2019-09-22 2019-09-22 Outpatient [facility] [id number] [place] 00:00:00 00:00:00 [facility] 2019-09-08 2019-09-08 Outpatient [facility] [id number] [place] 00:00:00 00:00:00 [facility] 2019-09-06 2019-09-06 Outpatient [facility] [id number] [place] 00:00:00 00:00:00 [facility] 2019-08-29 2019-08-29 Outpatient [facility] [id number] [place] 08:07:37 08:07:37 [facility] 2019-08-11 2019-08-11 Outpatient [facility] [id number] [place] 14:34:35 14:34:35 [facility] 2019-08-11 2019-08-11 Outpatient [facility] [id number] [place] 14:10:42 14:10:42 [facility] 2019-08-11 2019-08-11 Outpatient [facility] [id number] [place] 00:00:00 00:00:00 [facility] 2019-08-03 2019-08-03 Outpatient [facility] [id number] [place] 10:45:43 10:45:43 [facility] 2019-08-01 2019-08-01 Outpatient [facility] [id number] [place] 08:17:31 08:17:31 [facility] 2019-07-12 2019-07-12 Outpatient [facility] [id number] [place] 13:34:12 13:34:12 [facility] 2019-07-10 2019-07-10 Outpatient [facility] [id number] [place] 10:18:59 10:18:59 [facility] 2019-07-10 2019-07-10 Outpatient [facility] [id number] [place] 09:23:42 09:23:42 [facility] 2019-07-10 2019-07-10 Outpatient [facility] [id number] [place] 00:00:00 00:00:00 [facility] 2019-07-05 2019-07-05 Outpatient [facility] [id number] [place] 00:00:00 00:00:00 [facility] 2019-06-21 2019-06-21 Outpatient [facility] [id number] [place] 14:43:36 14:43:36 [facility] 2019-05-31 2019-05-31 Outpatient [facility] [id number] [place] 09:01:41 09:01:41 [facility] 2019-05-31 2019-05-31 Outpatient [facility] [id number] [place] 00:00:00 00:00:00 [facility] 2019-04-21 2019-04-21 Outpatient [facility] [id number] [place] 00:00:00 00:00:00 [facility] 2019-04-14 2019-04-14 Outpatient [facility] [id number] [place] 14:55:03 14:55:03 [facility] 2019-04-07 2019-04-07 Outpatient [facility] [id number] [place] 00:00:00 00:00:00 [facility] 2019-04-07 2019-04-07 Outpatient [facility] [id number] [place] 00:00:00 00:00:00 [facility] 2019-04-07 2019-04-07 Outpatient [facility] [id number] [place] 00:00:00 00:00:00 [facility] 2019-04-06 2019-04-06 Outpatient [facility] [id number] [place] 00:00:00 00:00:00 [facility] 2019-04-05 2019-04-05 Outpatient [facility] [id number] [place] 00:00:00 00:00:00 [facility] 2019-03-29 2019-03-29 Outpatient [facility] [id number] [place] 15:23:28 15:23:28 [facility] 2019-03-28 2019-03-28 Outpatient [facility] [id number] [place] 16:10:03 16:10:03 [facility] 2019-03-28 2019-03-28 Outpatient [facility] [id number] [place] 14:56:12 14:56:12 [facility] 2019-03-28 2019-03-28 Outpatient [facility] [id number] [place] 00:00:00 00:00:00 [facility] 2019-03-24 2019-03-24 Outpatient [facility] [id number] [place] 15:03:38 15:03:38 [facility] 2019-03-10 2019-03-10 Outpatient [facility] [id number] [place] 00:00:00 00:00:00 [facility] 2019-03-09 2019-03-09 Outpatient [facility] [id number] [place] 14:32:57 14:32:57 [facility] 2019-03-03 2019-03-03 Outpatient [facility] [id number] [place] 13:53:33 13:53:33 [facility] 2019-02-23 2019-02-23 Outpatient [facility] [id number] [place] 13:41:45 13:41:45 [facility] 2019-02-16 2019-02-16 Outpatient [facility] [id number] [place] 14:30:15 14:30:15 [facility] 2019-02-09 2019-02-09 Outpatient [facility] [id number] [place] 00:00:00 00:00:00 [facility] 2019-01-18 2019-01-18 Outpatient [facility] [id number] [place] 15:15:44 15:15:44 [facility] 2019-01-11 2019-01-11 Outpatient [facility] [id number] [place] 00:00:00 00:00:00 [facility] 2019-01-04 2019-01-04 Outpatient [facility] [id number] [place] 00:00:00 00:00:00 [facility] 2019-01-02 2019-01-02 Outpatient [facility] [id number] [place] 10:29:45 10:29:45 [facility] 2018-12-20 2018-12-20 Outpatient [facility] [id number] [place] 14:29:22 14:29:22 [facility] 2018-12-12 2018-12-12 Outpatient [facility] [id number] [place] 00:00:00 00:00:00 [facility] 2018-12-07 2018-12-07 Outpatient [facility] [id number] [place] 00:00:00 00:00:00 [facility] 2018-11-18 2018-11-18 Outpatient [facility] [id number] [place] 00:00:00 00:00:00 [facility] 2018-10-27 2018-10-27 Outpatient [facility] [id number] [place] 00:00:00 00:00:00 [facility] 2018-10-25 2018-10-25 Outpatient [facility] [id number] [place] 09:12:01 09:12:01 [facility] 2018-10-25 2018-10-25 Outpatient [facility] [id number] [place] 00:00:00 00:00:00 [facility] 2018-09-29 2018-09-29 Outpatient [facility] [id number] [place] 11:41:40 11:41:40 [facility] 2018-09-22 2018-09-22 Outpatient [facility] [id number] [place] 00:00:00 00:00:00 [facility] 2018-09-21 2018-09-21 Outpatient [facility] [id number] [place] 13:17:51 13:17:51 [facility] 2018-08-08 2018-08-08 Outpatient [facility] [id number] [place] 15:08:56 15:08:56 [facility] 2018-08-08 2018-08-08 Outpatient [facility] [id number] [place] 13:50:11 13:50:11 [facility] 2018-04-20 2018-04-20 Outpatient [facility] [id number] [place] 00:00:00 00:00:00 [facility] 2018-04-11 2018-04-11 Outpatient [facility] [id number] [place] 00:00:00 00:00:00 [facility] 2018-03-24 2018-03-24 Outpatient [facility] [id number] [place] 14:30:08 14:30:08 [facility] 2018-03-11 2018-03-11 Outpatient [facility] [id number] [place] 08:59:56 08:59:56 [facility] 2018-03-09 2018-03-09 Outpatient [facility] [id number] [place] 15:10:05 15:10:05 [facility] 2018-02-25 2018-02-25 Outpatient [facility] [id number] [place] 00:00:00 00:00:00 [facility] 2018-02-22 2018-02-22 Outpatient [facility] [id number] [place] 09:47:44 09:47:44 [facility] 2018-02-01 2018-02-01 Outpatient [facility] [id number] [place] 15:31:00 15:31:00 [facility] 2018-02-01 2018-02-01 Outpatient [facility] [id number] [place] 00:00:00 00:00:00 [facility] 2018-01-28 2018-01-28 Outpatient [facility] [id number] [place] 14:25:09 14:25:09 [facility] 2018-01-13 2018-01-13 Outpatient [facility] [id number] [place] 00:00:00 00:00:00 [facility] 2018-01-07 2018-01-07 Outpatient [facility] [id number] [place] 00:00:00 00:00:00 [facility] 2018-01-06 2018-01-06 Outpatient [facility] [id number] [place] 08:49:34 08:49:34 [facility] 2018-01-03 2018-01-03 Outpatient [facility] [id number] [place] 09:36:54 09:36:54 [facility] 2017-12-23 2017-12-23 Outpatient [facility] [id number] [place] 09:40:46 09:40:46 [facility] 2017-12-09 2017-12-09 Outpatient [facility] [id number] [place] 15:13:23 15:13:23 [facility] 2017-11-25 2017-11-25 Outpatient [facility] [id number] [place] 00:00:00 00:00:00 [facility] 2017-11-24 2017-11-24 Outpatient [facility] [id number] [place] 15:38:59 15:38:59 [facility] 2017-11-24 2017-11-24 Outpatient [facility] [id number] [place] 00:00:00 00:00:00 [facility] 2017-11-22 2017-11-22 Outpatient [facility] [id number] [place] 15:36:55 15:36:55 [facility] 2017-11-17 2017-11-17 Outpatient [facility] [id number] [place] 00:00:00 00:00:00 [facility] 2017-11-11 2017-11-11 Outpatient [facility] [id number] [place] 14:05:46 14:05:46 [facility] 2017-11-10 2017-11-10 Outpatient [facility] [id number] [place] 00:00:00 00:00:00 [facility] 2017-11-03 2017-11-03 Outpatient [facility] [id number] [place] 00:00:00 00:00:00 [facility] 2017-10-27 2017-10-27 Outpatient [facility] [id number] [place] 00:00:00 00:00:00 [facility] 2017-10-20 2017-10-20 Outpatient [facility] [id number] [place] 00:00:00 00:00:00 [facility] 2017-10-13 2017-10-13 Outpatient [facility] [id number] [place] 00:00:00 00:00:00 [facility] 2017-10-08 2017-10-08 Outpatient [facility] [id number] [place] 13:12:58 13:12:58 [facility] 2017-10-08 2017-10-08 Outpatient [facility] [id number] [place] 00:00:00 00:00:00 [facility] 2017-10-04 2017-10-04 Outpatient [facility] [id number] [place] 00:00:00 00:00:00 [facility] 2017-10-01 2017-10-01 Outpatient [facility] [id number] [place] 16:05:17 16:05:17 [facility] 2017-10-01 2017-10-01 Outpatient [facility] [id number] [place] 15:08:55 15:08:55 [facility] 2017-09-09 2017-09-09 Outpatient [facility] [id number] [place] 09:51:17 09:51:17 [facility] 2017-09-08 2017-09-08 Outpatient [facility] [id number] [place] 14:31:52 14:31:52 [facility] 2017-07-28 2017-07-28 Outpatient [facility] [id number] [place] 09:51:18 09:51:18 [facility] 2017-07-18 2017-07-18 Emergency [facility] [id number] [place] 14:53:14 14:53:14 [facility] 2017-07-18 2017-07-18 Inpatient [facility] [id number] [place] 12:13:57 12:13:57 [facility] 2017-07-07 2017-07-07 Outpatient [facility] [id number] [place] 14:50:08 14:50:08 [facility] 2017-06-11 2017-06-11 Outpatient [facility] [id number] [place] 13:28:35 13:28:35 [facility] 2017-06-10 2017-06-10 Outpatient [facility] [id number] [place] 15:39:29 15:39:29 [facility] 2017-06-08 2017-06-08 Outpatient [facility] [id number] [place] 13:05:47 13:05:47 [facility] 2017-06-04 2017-06-04 Outpatient [facility] [id number] [place] 12:40:45 12:40:45 [facility] 2017-06-03 2017-06-03 Outpatient [facility] [id number] [place] 00:00:00 00:00:00 [facility] 2017-06-01 2017-06-01 Outpatient [facility] [id number] [place] 12:36:26 12:36:26 [facility] 2017-05-14 2017-05-14 Outpatient [facility] [id number] [place] 08:24:03 08:24:03 [facility] 2017-05-14 2017-05-14 Outpatient [facility] [id number] [place] 07:23:07 07:23:07 [facility] 2017-04-30 2017-04-30 Outpatient [facility] [id number] [place] 00:00:00 00:00:00 [facility] 2017-04-26 2017-04-26 Outpatient [facility] [id number] [place] 00:00:00 00:00:00 [facility] 2017-04-14 2017-04-14 Outpatient [facility] [id number] [place] 10:24:05 10:24:05 [facility] 2017-04-08 2017-04-08 Outpatient [facility] [id number] [place] 00:00:00 00:00:00 [facility] 2017-04-07 2017-04-07 Outpatient [facility] [id number] [place] 14:24:22 14:24:22 [facility] 2017-04-02 2017-04-02 Outpatient [facility] [id number] [place] 00:00:00 00:00:00 [facility] 2017-03-30 2017-03-30 Outpatient [facility] [id number] [place] 00:00:00 00:00:00 [facility] 2017 2017 Outpatient [facility] [id number] [place] 11:11:06 11:11:06 [facility] 2017-03-12 2017-03-12 Outpatient [facility] [id number] [place] 13:12:40 13:12:40 [facility] 2017-02-19 2017-02-19 Outpatient [facility] [id number] [place] 00:00:00 00:00:00 [facility] 2017-02-03 2017-02-03 Outpatient [facility] [id number] [place] 14:38:51 14:38:51 [facility] 2017-01-18 2017-01-18 Outpatient [facility] [id number] [place] 00:00:00 00:00:00 [facility] 2017-01-13 2017-01-13 Outpatient [facility] [id number] [place] 00:00:00 00:00:00 [facility] 2016-12-30 2016-12-30 Outpatient [facility] [id number] [place] 08:21:55 08:21:55 [facility] 2016-12-28 2016-12-28 Outpatient [facility] [id number] [place] 13:12:13 13:12:13 [facility] 2016-12-16 2016-12-16 Outpatient [facility] [id number] [place] 12:31:42 12:31:42 [facility] 2016-12-14 2016-12-14 Outpatient [facility] [id number] [place] 00:00:00 00:00:00 [facility] 2016-11-30 2016-11-30 Outpatient [facility] [id number] [place] 13:19:09 13:19:09 [facility] 2016-11-26 2016-11-26 Outpatient [facility] [id number] [place] 13:39:33 13:39:33 [facility] 2016-11-26 2016-11-26 Outpatient [facility] [id number] [place] 13:37:06 13:37:06 [facility] 2016-11-23 2016-11-23 Outpatient [facility] [id number] [place] 13:27:22 13:27:22 [facility] 2016-11-16 2016-11-16 Outpatient [facility] [id number] [place] 08:29:28 08:29:28 [facility] 2016-11-06 2016-11-06 Outpatient [facility] [id number] [place] 14:10:51 14:10:51 [facility] 2016-10-13 2016-10-13 Outpatient [facility] [id number] [place] 11:00:58 11:00:58 [facility] 2016-10-08 2016-10-08 Outpatient [facility] [id number] [place] 12:56:54 12:56:54 Health 2016-10-08 2016-10-08 Outpatient [facility] [id number] [place] 12:49:38 12:49:38 [facility] 2016-10-07 2016-10-07 Outpatient [facility] [id number] [place] 15:36:29 15:36:29 [facility] 2016-10-07 2016-10-07 Outpatient [facility] [id number] [place] 14:16:34 14:16:34 [facility] 2016-09-30 2016-09-30 Outpatient [facility] [id number] [place] 09:07:30 09:07:30 [facility] 2016-09-11 2016-09-11 Outpatient [facility] [id number] [place] 11:28:30 11:28:30 [facility] 2016-08-22 2016-08-22 Emergency [facility] [id number] [place] 22:23:29 22:23:29 [facility] 2016-08-22 2016-08-22 Emergency [facility] [id number] [place] 19:44:23 19:44:23 [facility] 2016-08-22 2016-08-22 Emergency [facility] [id number] [place] 19:17:50 19:17:50 [facility] 2016-08-22 2016-08-22 Emergency [facility] [id number] [place] 19:15:09 19:15:09 [facility] 2015-09-18 2015-09-19 [facility] [id number] Memoria 00:04:00 22:29:00 r [facility] 04 l [facility] 2015-09-18 2015-09-19 [facility] [id number] Memoria 00:04:00 22:29:00 r [place] 04 l [facility] 2015-09-17 2015-09-19 Outpatient Prudencio, [id number] [id number] 18:04:00 16:29:00 González 04 2015-08-26 2015-08-26 [facility] [id number] Memoria 16:33:00 22:17:00 Emergency r [place] 03 l [facility] 2015-08-26 2015-08-26 [facility] [id number] [facility] 16:33:00 22:17:00 Emergency [facility] [place] [facility] 2015-08-26 2015-08-26 Outpatient Riaz, MHSE MHSE [id number] 10:33:00 16:17:00 Nato Mcqueen 2015-08-15 2015-08-16 [facility] [id number] Memoria 11:50:00 22:33:00 r [place] 02 [facility] 2015-08-15 2015-08-16 [facility] [id number] Memoria 11:50:00 22:33:00 r [place] 02 [facility] 2015-08-15 2015-08-16 Outpatient Tommy Del Toro MHSE MHSE [id number] 05:50:00 16:33:00 Cly[place] 02 2015-06-24 2015-07-24 [facility] [id number] Memoria 20:15:00 05:59:00 Recurring r Dav 01 [facility] 2015-06-24 2015-07-24 [facility] [id number] Memoria 20:15:00 05:59:00 Recurring r Dav 01 [facility] 2015-06-24 2015-07-23 Outpatient Mcclendon, MHSE MHSE [id number] 15:15:00 23:59:00 Sam [place] 2015-06-24 2015-06-25 [facility] [id number] Memoria 14:21:00 04:59:00 r Dav 01 [facility] 2015-06-24 2015-06-25 [facility] [id number] Memoria 14:21:00 04:59:00 r Dav 01 [facility] 2015-06-24 2015-06-24 Outpatient Mcclend[place], MHSE MHSE [id number] 09:21:00 23:59:00 Sam [place] 2015-05-23 2015-06-22 [facility] [id number] Memoria 15:41:00 04:59:00 Recurring r Dav 00 [facility] 2015-05-23 2015-06-22 [facility] [id number] Memoria 15:41:00 04:59:00 Recurring r Dav 00 [facility] 2015-05-23 2015-06-21 Outpatient JANICE Mccl[place]on [place] [id number] 10:41:00 23:59:00 Sam W 00 2015-06-10 2015-06-10 Bedded [facility] [id number] Memoria 11:23:00 14:36:00 Outpatient r [place] 00 l [facility] 2015-06-10 2015-06-10 Bedded [facility] [id number] Memoria 11:23:00 14:36:00 Outpatient r [place] 00 l [facility] 2015-06-10 2015-06-10 Outpatient JANICE Mcclendon [place] [id number] 06:23:00 09:36:00 Asm W 00 Results Test Description Test Time Test Comments Results Result Comments Source CARDIAC [facility] 2022-03-19 05:01:00 Test Item Value Reference Range Interpretation Comme nts HS Troponin I (test code = HS Troponin I) 5 [facility]2022-07-21 05:01:00 Test Item Value Reference Range Interpretation Comments Glucose Lvl (test code = Glucose Lvl) 96 70-99 [facility]2022-07-21 05:01:00 Test Item Value Reference Range Interpretation Comments BUN (test code = BUN) 16 7-22 [facility]2022-07-21 05:01:00 Test Item Value Reference Range Interpretation Comments Creatinine Lvl (test code = Creatinine 0.73 0.50-1.40 Lvl) [facility]2022-07-21 05:01:00 Test Item Value Reference Range Interpretation Comments Sodium Lvl (test code = Sodium Lvl) 141 135-145 [facility]2022-07-21 05:01:00 Test Item Value Reference Range Interpretation Comments Potassium Lvl (test code = Potassium 3.6 3.5-5.1 Lvl) [facility]2022-07-21 05:01:00 Test Item Value Reference Range Interpretation Comments Chloride Lvl (test code = Chloride Lvl) 110 95-109 [facility]2022-07-21 05:01:00 Test Item Value Reference Range Interpretation Comments CO2 (test code = CO2) 25 24-32 [facility]2022-07-21 05:01:00 Test Item Value Reference Range Interpretation Comments Calcium Lvl (test code = Calcium Lvl) 9.3 8.5-10.5 [place] 955982-07-21 05:01:00 Test Item Value Reference Range Interpretation Comments Total Protein (test code = Total 7.2 6.4-8.4 Protein) [place] 955982-07-21 05:01:00 Test Item Value Reference Range Interpretation Comments Albumin Lvl (test code = Albumin Lvl) 3.7 3.5-5.0 [place] 955982-07-21 05:01:00 Test Item Value Reference Range Interpretation Comments ALT (test code = ALT) 59 See_Comment [Auto mated message] The system which ge nerated this result transmit arvind reference range : <=65. The reference range was not used to interpr et this result as mario l/abnormal. [place] 955982-07-21 05:01:00 Test Item Value Reference Range Interpretation Comments AST (test code = AST) 24 See_Comment [Auto mated message] The system which ge nerated this result transmit arvind reference range : <=37. The reference range was not used to interpr et this result as mario l/abnormal. [facility]2022-07-21 05:01:00 Test Item Value Reference Range Interpretation Comments Alk Phos (test code = Alk Phos) 60 39-136 [place] 955982-07-21 05:01:00 Test Item Value Reference Range Interpretation Comments Bili Total (test code = Bili Total) 0.2 0.2-1.3 [place] 955982-07-21 05:01:00 Test Item Value Reference Range Interpretation Comments AGAP (test code = AGAP) 9.6 10.0-20.0 [place] 955982-07-21 05:01:00 Test Item Value Reference Range Interpretation Comments B/C Ratio (test code = B/C Ratio) 22 1 6-25 [place] 955982-07-21 05:01:00 Test Item Value Reference Range Interpretation Comments Globulin (test code = Globulin) 3.5 2.7-4.2 [place] 955982-07-21 05:01:00 Test Item Value Reference Range Interpretation Comments A/G Ratio (test code = A/G Ratio) 1.1 1 0.7-1.6 [facility]2022-07-21 05:01:00 Test Item Value Reference Range Interpretation Comments eGFR (test code = eGFR) 112 [facility]GjbmkoeOCHPRDVYLC0874-83-55 05:01:00 Test Item Value Reference Range Interpretation Comments WBC (test code = WBC) 6.4 3.7-10.4 [facility] CampusViqypkwXNAEJHDSJR4059-14-06 05:01:00 Test Item Value Reference Range Interpretation Comments RBC (test code = RBC) 5.28 4.20-5.40 [facility] CampusTpkswxyFRZTDIWQFU7750-55-29 05:01:00 Test Item Value Reference Range Interpretation Comments Hgb (test code = Hgb) 14.1 12.0-16.0 [place] 705382-07-21 05:01:00 Test Item Value Reference Range Interpretation Comments Hct (test code = Hct) 43.0 36.0-48.0 [facility] CampusFrxelquBHSZXTGBIU5317-79-42 05:01:00 Test Item Value Reference Range Interpretation Comments MCV (test code = MCV) 81.4 80.0-98.0 [facility] CampusNqdwbibGHLWRXJMBO5023-67-41 05:01:00 Test Item Value Reference Range Interpretation Comments MCH (test code = MCH) 26.7 pg 27.0-31.0 [facility] CampusMlbrzhuEHKTAEVZNI7991-75-24 05:01:00 Test Item Value Reference Range Interpretation Comments MCHC (test code = MCHC) 32.9 32.0-36.0 [facility] CampusWdqhdtaKLGPFGTVKT5412-69-48 05:01:00 Test Item Value Reference Range Interpretation Comments RDW (test code = RDW) 14.1 11.5-14.5 [facility] CampusPtdmkatSSJYMNVLRT4702-18-28 05:01:00 Test Item Value Reference Range Interpretation Comments Platelet (test code = Platelet) 237 133-450 [facility] CampusQlyyjrcXUSFRRJSQO8894-51-70 05:01:00 Test Item Value Reference Range Interpretation Comments MPV (test code = MPV) 9.1 7.4-10.4 [place] 705382-07-21 05:01:00 Test Item Value Reference Range Interpretation Comments PT (test code = PT) 12.4 s 12.0-14.7 [facility] CampusSqbbxxaIGNOTQLGZG8464-90-58 05:01:00 Test Item Value Reference Range Interpretation Comments INR (test code = INR) 0.93 1 0.85-1.17 [place] 705382-07-21 05:01:00 Test Item Value Reference Range Interpretation Comments PTT (test code = PTT) 26.5 s 22.9-35.8 [place] 705382-07-21 05:01:00 Test Item Value Reference Range Interpretation Comments Segs (test code = Segs) 40.0 45.0-75.0 [place] 705382-07-21 05:01:00 Test Item Value Reference Range Interpretation Comments Lymphocytes (test code = Lymphocytes) 49.7 20.0-40.0 [place] 705382-07-21 05:01:00 Test Item Value Reference Range Interpretation Comments Monocytes (test code = Monocytes) 8.5 2.0-12.0 [place] 705382-07-21 05:01:00 Test Item Value Reference Range Interpretation Comments Eosinophils (test code = 1.0 See_Comment [A utomated message] The Eosinophils) system which ge nerated this result tra nsmitted reference range : <=4.0. The reference r kat was not used to int erpret this result as normal/abnormal . [facility] CampusBdxrtibWDXWPLIMME5525-67-69 05:01:00 Test Item Value Reference Range Interpretation Comments Basophils (test code = 0.8 See_Comment [Aut omated message] The Basophils) system which ge nerated this result tra nsmitted reference range : <=1.0. The reference r kat was not used to int erpret this result as normal/abnormal . [facility] CampusQhqhzkqQGCTTMTHIS7104-79-85 05:01:00 Test Item Value Reference Range Interpretation Comments Neutrophils # (test code = Neutrophils 2.5 1.5-8.1 #) [place] 705382-07-21 05:01:00 Test Item Value Reference Range Interpretation Comments Lymphocytes # (test code = Lymphocytes 3.2 1.0-5.5 #) [facility] CampusTmcrjjeRIUITCFSZA5046-90-71 05:01:00 Test Item Value Reference Range Interpretation Comments Monocytes # (test code 0.5 See_Comment [Aut omated message] The = Monocytes #) system which generated this result tra nsmitted reference range : <=0.8. The reference r kat was not used to int erpret this result as normal/abnormal . [facility]Yev[facility]cdcYTNTSAUPCZ1791-[facility] 05:01:00 Test Item Value Reference Range Interpretation Comments Eosinophils # (test code 0.1 See_Comment [A utomated message] The = Eosinophils #) system whic h generated this result tra nsmitted reference range : <=0.5. The reference r kat was not used to int erpret this result as normal/abnormal . [facility] JUMXZAQ3268-80-60 05:01:00 Test Item Value Reference Range Interpretation Comments HS Troponin I (test code = HS Troponin 5 I) [facility] [id number] 05:01:00 Test Item Value Reference Range Interpretation Comments Glucose Lvl (test code = Glucose Lvl) 96 70-99 [facility]2022-07-21 05:01:00 Test Item Value Reference Range Interpretation Comments BUN (test code = BUN) 16 7-22 [facility]2022-07-21 05:01:00 Test Item Value Reference Range Interpretation Comments Creatinine Lvl (test code = Creatinine 0.73 0.50-1.40 Lvl) [facility]2022-07-21 05:01:00 Test Item Value Reference Range Interpretation Comments Sodium Lvl (test code = Sodium Lvl) 141 135-145 [facility]2022-07-21 05:01:00 Test Item Value Reference Range Interpretation Comments Potassium Lvl (test code = Potassium 3.6 3.5-5.1 Lvl) [facility]2022-07-21 05:01:00 Test Item Value Reference Range Interpretation Comments Chloride Lvl (test code = Chloride Lvl) 110 95-109 [facility]2022-07-21 05:01:00 Test Item Value Reference Range Interpretation Comments CO2 (test code = CO2) 25 24-32 [facility]2022-07-21 05:01:00 Test Item Value Reference Range Interpretation Comments Calcium Lvl (test code = Calcium Lvl) 9.3 8.5-10.5 [facility]2022-07-21 05:01:00 Test Item Value Reference Range Interpretation Comments Total Protein (test code = Total 7.2 6.4-8.4 Protein) [facility]2022-07-21 05:01:00 Test Item Value Reference Range Interpretation Comments Albumin Lvl (test code = Albumin Lvl) 3.7 3.5-5.0 [facility]2022-07-21 05:01:00 Test Item Value Reference Range Interpretation Comments ALT (test code = ALT) 59 See_Comment [Auto mated message] The system which ge nerated this result transmit arvind reference range : <=65. The reference range was not used to interpr et this result as mario l/abnormal. [place] 955982-07-21 05:01:00 Test Item Value Reference Range Interpretation Comments AST (test code = AST) 24 See_Comment [Auto mated message] The system which ge nerated this result transmit arvind reference range : <=37. The reference range was not used to interpr et this result as mario l/abnormal. [place] 955982-07-21 05:01:00 Test Item Value Reference Range Interpretation Comments Alk Phos (test code = Alk Phos) 60 39-136 [facility]2022-07-21 05:01:00 Test Item Value Reference Range Interpretation Comments Bili Total (test code = Bili Total) 0.2 0.2-1.3 [place] 955982-07-21 05:01:00 Test Item Value Reference Range Interpretation Comments AGAP (test code = AGAP) 9.6 10.0-20.0 [place] 955982-07-21 05:01:00 Test Item Value Reference Range Interpretation Comments B/C Ratio (test code = B/C Ratio) 22 1 6-25 [place] 955982-07-21 05:01:00 Test Item Value Reference Range Interpretation Comments Globulin (test code = Globulin) 3.5 2.7-4.2 [place] 955982-07-21 05:01:00 Test Item Value Reference Range Interpretation Comments A/G Ratio (test code = A/G Ratio) 1.1 1 0.7-1.6 [place] 955982-07-21 05:01:00 Test Item Value Reference Range Interpretation Comments eGFR (test code = eGFR) 112 [facility] CampusDlkbfwhWTGYVNESUF6443-54-40 05:01:00 Test Item Value Reference Range Interpretation Comments WBC (test code = WBC) 6.4 3.7-10.4 [facility] CampusGhnjgysKFNJRAJAMX7385-77-67 05:01:00 Test Item Value Reference Range Interpretation Comments RBC (test code = RBC) 5.28 4.20-5.40 [facility] CampusPlcfflvAXSWDIAZVA5651-54-18 05:01:00 Test Item Value Reference Range Interpretation Comments Hgb (test code = Hgb) 14.1 12.0-16.0 [facility] CampusTkyzomyHHUBFREOAY1362-71-42 05:01:00 Test Item Value Reference Range Interpretation Comments Hct (test code = Hct) 43.0 36.0-48.0 [facility] CampusJchtvfnHHUYNMNTHV6026-98-49 05:01:00 Test Item Value Reference Range Interpretation Comments MCV (test code = MCV) 81.4 80.0-98.0 [facility] CampusHndejkhBSAETLCRUL8737-38-35 05:01:00 Test Item Value Reference Range Interpretation Comments MCH (test code = MCH) 26.7 pg 27.0-31.0 [facility] CampusFrddpdbNPZCEYYJBS2682-19-59 05:01:00 Test Item Value Reference Range Interpretation Comments MCHC (test code = MCHC) 32.9 32.0-36.0 [facility] CampusEhccmaxCASLHVSVDT2884-29-33 05:01:00 Test Item Value Reference Range Interpretation Comments RDW (test code = RDW) 14.1 11.5-14.5 [facility] CampusTozfwzpLLSXUYXGOR8513-49-61 05:01:00 Test Item Value Reference Range Interpretation Comments Platelet (test code = Platelet) 237 133-450 [facility] CampusAdedoabRGVDEVRXNR0165-01-03 05:01:00 Test Item Value Reference Range Interpretation Comments MPV (test code = MPV) 9.1 7.4-10.4 [facility] CampusZbtukubGPIAZDESSQ7543-07-65 05:01:00 Test Item Value Reference Range Interpretation Comments PT (test code = PT) 12.4 s 12.0-14.7 [facility] CampusUrozpazUXFARFQHTM3165-48-92 05:01:00 Test Item Value Reference Range Interpretation Comments INR (test code = INR) 0.93 1 0.85-1.17 [facility] CampusYneqzqmEFDGUNOTOS9118-76-67 05:01:00 Test Item Value Reference Range Interpretation Comments PTT (test code = PTT) 26.5 s 22.9-35.8 [facility] CampusUsxdplpZUPJCQCICY9917-31-05 05:01:00 Test Item Value Reference Range Interpretation Comments Segs (test code = Segs) 40.0 45.0-75.0 [facility] CampusCbpehagQWRHVOGVDT1265-96-31 05:01:00 Test Item Value Reference Range Interpretation Comments Lymphocytes (test code = Lymphocytes) 49.7 20.0-40.0 [facility] CampusNisbtpqWINRTOQFLW2853-37-59 05:01:00 Test Item Value Reference Range Interpretation Comments Monocytes (test code = Monocytes) 8.5 2.0-12.0 [facility] CampusMdptuhxQWYQDGEXVL9549-13-91 05:01:00 Test Item Value Reference Range Interpretation Comments Eosinophils (test code = 1.0 See_Comment [A utomated message] The Eosinophils) system which ge nerated this result tra nsmitted reference range : <=4.0. The reference r kat was not used to int erpret this result as normal/abnormal . [facility] CampusUnlmajoOJDQFIWUJW5513-93-93 05:01:00 Test Item Value Reference Range Interpretation Comments Basophils (test code = 0.8 See_Comment [Aut omated message] The Basophils) system which ge nerated this result tra nsmitted reference range : <=1.0. The reference r kat was not used to int erpret this result as normal/abnormal . [facility] CampusPucqvmxXQUTLAAQNI5954-28-51 05:01:00 Test Item Value Reference Range Interpretation Comments Neutrophils # (test code = Neutrophils 2.5 1.5-8.1 #) [facility] CampusFhabbxmMFXTPSNVUF5832-00-60 05:01:00 Test Item Value Reference Range Interpretation Comments Lymphocytes # (test code = Lymphocytes 3.2 1.0-5.5 #) [facility] CampusWnlsapgWEDWXMHRLF9980-32-71 05:01:00 Test Item Value Reference Range Interpretation Comments Monocytes # (test code 0.5 See_Comment [Aut omated message] The = Monocytes #) system which generated this result tra nsmitted reference range : <=0.8. The reference r kat was not used to int erpret this result as normal/abnormal . [facility] CampusSvnqlpjFUKLIIXKDP3428-08-29 05:01:00 Test Item Value Reference Range Interpretation Comments Eosinophils # (test code 0.1 See_Comment [A utomated message] The = Eosinophils #) system whic h generated this result tra nsmitted reference range : <=0.5. The reference r kat was not used to int erpret this result as normal/abnormal . [facility] FEENNBS5219-37-31 05:01:00 Test Item Value Reference Range Interpretation Comments HS Troponin I (test code = HS Troponin 5 I) [facility] GIWVY6875-01-04 05:01:00 Test Item Value Reference Range Interpretation Comments Glucose Lvl (test code = Glucose Lvl) 96 70-99 [facility]2022-07-21 05:01:00 Test Item Value Reference Range Interpretation Comments BUN (test code = BUN) 16 7-22 [facility]2022-07-21 05:01:00 Test Item Value Reference Range Interpretation Comments Creatinine Lvl (test code = Creatinine 0.73 0.50-1.40 Lvl) [facility]2022-07-21 05:01:00 Test Item Value Reference Range Interpretation Comments Sodium Lvl (test code = Sodium Lvl) 141 135-145 [facility]2022-07-21 05:01:00 Test Item Value Reference Range Interpretation Comments Potassium Lvl (test code = Potassium 3.6 3.5-5.1 Lvl) [facility]2022-07-21 05:01:00 Test Item Value Reference Range Interpretation Comments Chloride Lvl (test code = Chloride Lvl) 110 95-109 [facility]2022-07-21 05:01:00 Test Item Value Reference Range Interpretation Comments CO2 (test code = CO2) 25 24-32 [facility]2022-07-21 05:01:00 Test Item Value Reference Range Interpretation Comments Calcium Lvl (test code = Calcium Lvl) 9.3 8.5-10.5 [facility]2022-07-21 05:01:00 Test Item Value Reference Range Interpretation Comments Total Protein (test code = Total 7.2 6.4-8.4 Protein) [facility]2022-07-21 05:01:00 Test Item Value Reference Range Interpretation Comments Albumin Lvl (test code = Albumin Lvl) 3.7 3.5-5.0 [facility]2022-07-21 05:01:00 Test Item Value Reference Range Interpretation Comments ALT (test code = ALT) 59 See_Comment [Auto mated message] The system which ge nerated this result transmit arvind reference range : <=65. The reference range was not used to interpr et this result as mario l/abnormal. [facility] [id number] 05:01:00 Test Item Value Reference Range Interpretation Comments AST (test code = AST) 24 See_Comment [Auto mated message] The system which ge nerated this result transmit arvind reference range : <=37. The reference range was not used to interpr et this result as mario l/abnormal. [facility] [id number] 05:01:00 Test Item Value Reference Range Interpretation Comments Alk Phos (test code = Alk Phos) 60 39-136 [facility] DSDXG6051-85-29 05:01:00 Test Item Value Reference Range Interpretation Comments Bili Total (test code = Bili Total) 0.2 0.2-1.3 [facility] PKVUX3726-84-62 05:01:00 Test Item Value Reference Range Interpretation Comments AGAP (test code = AGAP) 9.6 10.0-20.0 [facility] ORBSM4830-54-14 05:01:00 Test Item Value Reference Range Interpretation Comments B/C Ratio (test code = B/C Ratio) 22 1 6-25 [facility] HWTWC4630-55-80 05:01:00 Test Item Value Reference Range Interpretation Comments Globulin (test code = Globulin) 3.5 2.7-4.2 [facility] SVFGZ6876-68-66 05:01:00 Test Item Value Reference Range Interpretation Comments A/G Ratio (test code = A/G Ratio) 1.1 1 0.7-1.6 [facility] KJKZV5668-89-00 05:01:00 Test Item Value Reference Range Interpretation Comments eGFR (test code = eGFR) 112 [place] 705382-07-21 05:01:00 Test Item Value Reference Range Interpretation Comments WBC (test code = WBC) 6.4 3.7-10.4 [place] 705382-07-21 05:01:00 Test Item Value Reference Range Interpretation Comments RBC (test code = RBC) 5.28 4.20-5.40 [place] 705382-07-21 05:01:00 Test Item Value Reference Range Interpretation Comments Hgb (test code = Hgb) 14.1 12.0-16.0 [facility] CampusMpfvfhdVEIQTFTHBQ0322-14-00 05:01:00 Test Item Value Reference Range Interpretation Comments Hct (test code = Hct) 43.0 36.0-48.0 [facility] CampusCdapqbxEAKFRBLZTP1590-21-05 05:01:00 Test Item Value Reference Range Interpretation Comments MCV (test code = MCV) 81.4 80.0-98.0 [place] 705382-07-21 05:01:00 Test Item Value Reference Range Interpretation Comments MCH (test code = MCH) 26.7 pg 27.0-31.0 [facility] CampusYpbiubmJAKYXYBUBX9471-80-39 05:01:00 Test Item Value Reference Range Interpretation Comments MCHC (test code = MCHC) 32.9 32.0-36.0 [facility] CampusXobgxbxLIIRDRXDVX4394-16-22 05:01:00 Test Item Value Reference Range Interpretation Comments RDW (test code = RDW) 14.1 11.5-14.5 [place] 705382-07-21 05:01:00 Test Item Value Reference Range Interpretation Comments Platelet (test code = Platelet) 237 133-450 [facility] CampusSpnzpdkFQYBWGXEDO6364-27-08 05:01:00 Test Item Value Reference Range Interpretation Comments MPV (test code = MPV) 9.1 7.4-10.4 [facility] CampusJafsfdrVABWHQNQFY8732-22-94 05:01:00 Test Item Value Reference Range Interpretation Comments PT (test code = PT) 12.4 s 12.0-14.7 [place] 705382-07-21 05:01:00 Test Item Value Reference Range Interpretation Comments INR (test code = INR) 0.93 1 0.85-1.17 [place] 705382-07-21 05:01:00 Test Item Value Reference Range Interpretation Comments PTT (test code = PTT) 26.5 s 22.9-35.8 [place] 705382-07-21 05:01:00 Test Item Value Reference Range Interpretation Comments Segs (test code = Segs) 40.0 45.0-75.0 [facility] CampusDlegtiwROMJEDGVUK3910-69-17 05:01:00 Test Item Value Reference Range Interpretation Comments Lymphocytes (test code = Lymphocytes) 49.7 20.0-40.0 [facility]OywdqrcRXBUZNIUNL0873-50-74 05:01:00 Test Item Value Reference Range Interpretation Comments Monocytes (test code = Monocytes) 8.5 2.0-12.0 [facility] CampusShattqoRZFMXGJTAM1425-94-84 05:01:00 Test Item Value Reference Range Interpretation Comments Eosinophils (test code = 1.0 See_Comment [A utomated message] The Eosinophils) system which ge nerated this result tra nsmitted reference range : <=4.0. The reference r kat was not used to int erpret this result as normal/abnormal . [facility] CampusDpklvtkFQWKDRPTQU6943-20-96 05:01:00 Test Item Value Reference Range Interpretation Comments Basophils (test code = 0.8 See_Comment [Aut omated message] The Basophils) system which ge nerated this result tra nsmitted reference range : <=1.0. The reference r kat was not used to int erpret this result as normal/abnormal . [facility] CampusYyzlgerFVGQVWCQMD3042-91-95 05:01:00 Test Item Value Reference Range Interpretation Comments Neutrophils # (test code = Neutrophils 2.5 1.5-8.1 #) [facility] CampusQrkdeakXTSOUBXMGW2179-53-88 05:01:00 Test Item Value Reference Range Interpretation Comments Lymphocytes # (test code = Lymphocytes 3.2 1.0-5.5 #) [facility] CampusMqclycxTGCYJHMDOJ3337-64-56 05:01:00 Test Item Value Reference Range Interpretation Comments Monocytes # (test code 0.5 See_Comment [Aut omated message] The = Monocytes #) system which generated this result tra nsmitted reference range : <=0.8. The reference r kat was not used to int erpret this result as normal/abnormal . [facility] CampusMiogtjpJWMPYNBNFU4413-86-58 05:01:00 Test Item Value Reference Range Interpretation Comments Eosinophils # (test code 0.1 See_Comment [A utomated message] The = Eosinophils #) system whic h generated this result tra nsmitted reference range : <=0.5. The reference r kat was not used to int erpret this result as normal/abnormal . [facility]ryl[facility]jWTXCPCGUUW2557-79-28 02:18:00 Test Item Value Reference Range Interpretation Comments Coronavirus (COVID-19) Detected MARLYN (test code = 1*ABN*(03/13/22 9:18 Coronavirus (COVID-19) PM) MARLYN) [facility] CenterBunvrjvXLLMPDHVSW1042-67-31 02:18:00 Test Item Value Reference Range Interpretation Comments Coronavirus (COVID-19) Detected MARLYN (test code = 1*ABN*(03/13/22 9:18 Coronavirus (COVID-19) PM) MARLYN) [facility] CenterFowkldcVSLAUEMQNP8467-97-72 02:18:00 Test Item Value Reference Range Interpretation Comments Coronavirus (COVID-19) Detected MARLYN (test code = 1*ABN*(03/13/22 9:18 Coronavirus (COVID-19) PM) MARLYN) [facility] Resp [facility]l MARLYN+cmqki0281-60-83 03:21:53 Test Item Value Reference Range Interpretation Comments Symptomatic as defined by CDC? (test code = 61811-3) Employed in No Healthcare? (test code = 03044-0) Resident in a No congregate care setting (including nursing homes, residential care for people with intellectual and developmental disabilities, psychiatric treatment facilities, group homes, board and care homes, homeless assisted, foster care or other): (test code = 16407-9) ? (test code = No 65021-6) SARS-CoV-2 RNA Nph Ql NOT DETECTED Not Detected The novel MARLYN+probe (test code = coron avirus 06956-1) (SARS-CoV-2) ta rget nucleic acids a re not detected. COMMENT: The [employer] SARS-CoV-2 real-time RT-PCR based diagnostic test intended for the qualitative detection of SARS-CoV-2 viral RNA in a nasopharyngeal swab during acute phase of infection. This test was developed and its performance characteristics have been determined by the [facility]. This test has not been cleared or approved by the FDA. This testsystem has been authorized by the FDA under an Emergency Use Authorization (EUA). This test has beenvalidated in accordance with the FDA\\IZ23338\\s Guidance document \\SL6649E\\Policy for Coronavirus Disease-2019 Tests During the Public Health Emergency\\HM2674N\\ (Revised December 2019) and is used for clinical purposes. It should not be regarded as investigational or for research\\TN9824P\\Detected\\LS2585C\\ results are indicative of the presence of the identified virus, but do not rule out bacterial infection or co-infection with other pathogens not detected by the test. Clinical correlation with patient his tory and other diagnostic information is necessary to determine patient infection status. \\RK5956Y\\Not Detected\\TD8197J\\ results do not preclude SARS-CoV-2 and should not be used as the sole basis for treatment or other patient management decisions. Negative results must be combined with clinical observations, patient history, and/or epidemiological information.This laboratory is certified under the Clinical Laboratory Improvement Amendments (CLIA) as qualified to perform high complexity clinical laboratory testing.[facility] SARS-CoV-2 ORF1ab Resp Ql MARLYN+ebxvs2230-01-06 01:19:53 Test Item Value Reference Range Interpretation Comments Symptomatic as defined No by CDC? (test code = 30516-3) Hospitalized? (test No code = 67255-5) ICU? (test code = No 28172-4) Employed in No Healthcare? (test code = 92514-2) Resident in a No congregate care setting (including nursing homes, residential care for people with intellectual and developmental disabilities, psychiatric treatment facilities, group homes, board and care homes, homeless assisted, foster care or other): (test code = 56092-0) ? (test code = No 60795-3) SARS-CoV-2 ORF1ab Resp NOT DETECTED Not Detected INTER PRETATION: No Ql MARLYN+probe (test detectabl e levels code = 03287-9) of SARS-CoV- 2 Coronavirus (COVID-19) were present [...] n with SARS-CoV-2 Coronavirus (COVID-19). COMMENT: This [employer] SARS-CoV-2 molecular diagnostic assay utilizes Director Web Mediated Amplification (TMA) technology to rapidly detect the SARS-CoV-2 (COVID-19) virus from respiratory samples. In accordance with the FDA's guidance document "Policy for Diagnostic Tests for Coronavirus Disease- 2019 during the Public Health Emergency", this test was developed, and its performance characteristics were verified by the [facility] molecular diagnostics laboratory and is authorized for [...] actual/normal in Platelet poor plasma by Coagulation hduli8425-08-40 00:00:00 Test Item Value Reference Range Interpretation Comments fact. VIII act. (test code = fact. VIII 106 act.) [facility] Medical[facility] Willebrand factor (vWf).activity [Units/volume] in Platelet poor plasma by Undrcuzaplh2595-97-68 00:00:00 Test Item Value Reference Range Interpretation Comments ristocetin cofactor (test code = 57 ristocetin cofactor) [facility] MedicalaPTT in Platelet poor plasma by Coagulation lhtlc2439-34-79 00:00:00 Test Item Value Reference Range Interpretation Comments PTT (test code = PTT) 28.5 sec 23.6-31.6 [facility] MedicalAndrostenedione [Mass/volume] in Serum or Abnnvu7896-79-76 00:00:00 Test Item Value Reference Range Interpretation Comments androstenedione (1) (test code = 20 NG/dL androstenedione (1)) [facility] MedicalPT/RHC5467-24-69 00:00:00 Test Item Value Reference Range Interpretation Comments INR (test code = INR) 0.96 0.80-1.06 PT (test code = PT) 10.9 sec 9.1-11.9 [facility] Urnocgy07-Jxmabfqvhkrkbntvxyo [Mass/volume] in Serum or Dqlkrt4079-48-87 00:00:00 Test Item Value Reference Range Interpretation Comments 17-hydroxyprogesterone (test code = <10 see below 17-hydroxyprogesterone) [facility] MedicalaPTT in Blood by Coagulation lmaca2518-31-64 00:00:00 Test Item Value Reference Range Interpretation Comments P.T.T. (test code = P.T.T.) 30.9 [facility] Neisseria gonorrhoeae rRNA panel - Specimen by MARLYN with probe onkdmcgaf4466-45-32 00:00:00 Test Item Value Reference Range Interpretation Comments aptima combo 2 swab (CT) (test code = CT neg negative aptima combo 2 swab (CT)) aptima combo 2 swab (GC) (test code = GC neg negative aptima combo 2 swab (GC)) [facility] 2021-[facility]-26 00:00:00 Test Item Value Reference Range Interpretation Comments bacterial vaginosis (test code = bv neg negative bacterial vaginosis) warner species (test code = C. spp neg negative warner species) warner glabrata (test code = C. gla neg negative warner glabrata) trichomonas vaginalis (CV/TV) trich pos negative A (test code = trichomonas vaginalis (CV/TV)) [facility] by Automated qxqnl9795-34-55 00:00:00 Test Item Value Reference Range Interpretation [...] code = baso #) 0.0 10 0.0-0.2 [facility] MedicalThyrotropin [Units/volume] in Serum or Dptvdb8768-29-98 00:00:00 Test Item Value Reference Range Interpretation Comments TSH (test code = TSH) 2.010 uIU/mL 0.178-4.530 [facility] MedicalComprehensive metabolic 2000 panel - Serum or Lphapc5143-50-08 00:00:00 Test Item Value Reference Range Interpretation [...] 124.483 >60.000 (test code = eGFR mL/min/1.73A? new zealander) [facility] MedicalTestosterone [Mass/volume] in Serum or Pizcmc1749-61-35 00:00:00 Test Item Value Reference Range Interpretation Comments testosterone (test code = testosterone) < 2.5 8.4-48.1 L [facility] MedicalDehydroepiandrosterone sulfate (DHEA-S) [Mass/volume] in Serum or Rlzgwj2666-71-94 00:00:00 Test Item Value Reference Range Interpretation Comments DHEA-S (test code = DHEA-S) 43.1 ug/dL 98.8-340.0 L [facility] HospitalFollitropin and Lutropin panel [Units/volume] - Serum or Plasma 2021-11-26 00:00:00 Test Item Value Reference Range Interpretation Comments LH (test code = LH) 2.9 mIU/mL FSH (test code = FSH) 6.8 mIU/mL [facility] MedicalProlactin [Mass/volume] in Serum or Uaygcw2668-88-31 00:00:00 Test Item Value Reference Range Interpretation Comments prolactin (test code = prolactin) 115.0 NG/mL 4.8-23.3 H [facility] MedicalLipid 1996 panel - Serum or Oshhez5313-60-86 00:00:00 Test Item Value Reference Range Interpretation [...] Serum or Plasma (test code = 2089-1) [facility] MedicalSTI euslb5156-64-43 00:00:00 Test Item Value Reference Range Interpretation Comments HPV thinprep (test code = HPV negative negative thinprep) [facility], PK1928-28-63 00:00:00 Test Item Value Reference Range Interpretation Comments LMP date: (test code = 09/09/2021 LMP date:) Pap, liquid-based nilm nilm (test code = Pap, liquid-based) source (liquid-based cervical (which cytology): (test code includes endocervical) = source (liquid-based cytology):) [facility]2021-05-24 21:13:00 Test Item Value Reference Range Interpretation Comments Glucose Lvl (test code = Glucose Lvl) 89 70-99 [facility]2021-05-24 21:13:00 Test Item Value Reference Range Interpretation Comments BUN (test code = BUN) 8 7-22 [facility]2021-05-24 21:13:00 Test Item Value Reference Range Interpretation Comments Creatinine Lvl (test code = Creatinine 0.55 0.50-1.40 Lvl) [facility]2021-05-24 21:13:00 Test Item Value Reference Range Interpretation Comments Sodium Lvl (test code = Sodium Lvl) 140 135-145 [facility]2021-05-24 21:13:00 Test Item Value Reference Range Interpretation Comments Potassium Lvl (test code = Potassium 3.5 3.5-5.1 Lvl) [facility]2021-05-24 21:13:00 Test Item Value Reference Range Interpretation Comments Chloride Lvl (test code = Chloride Lvl) 109 95-109 [facility]2021-05-24 21:13:00 Test Item Value Reference Range Interpretation Comments CO2 (test code = CO2) 27 24-32 [facility]2021-05-24 21:13:00 Test Item Value Reference Range Interpretation Comments Calcium Lvl (test code = Calcium Lvl) 9.0 8.5-10.5 [facility] HRNYM0312-22-54 21:13:00 Test Item Value Reference Range Interpretation Comments AGAP (test code = AGAP) 7.5 10.0-20.0 [facility]2021-05-24 21:13:00 Test Item Value Reference Range Interpretation Comments eGFR (test code = eGFR) 126 [facility]2021-05-24 21:13:00 Test Item Value Reference Range Interpretation Comments Lactic Acid Lvl (test code = Lactic 0.6 0.5-2.2 Acid Lvl) [facility]HsjshjfDWMTXKVRSWXYV2469-45-51 21:13:00 Test Item Value Reference Range Interpretation Comments hCG Tot (test code = hCG Tot) no gt [facility] CampusVypxmxuRVZUCJMMFY7415-87-72 21:13:00 Test Item Value Reference Range Interpretation Comments WBC X 10x3 (test code = WBC X 10x3) 7.9 3.7-10.4 [facility] CampusEsgshdpELISIGKIAJ3778-80-68 21:13:00 Test Item Value Reference Range Interpretation Comments RBC X 10x6 (test code = RBC X 10x6) 4.80 4.20-5.40 [facility] CampusLxlkihbFVFSRWRLUF7491-40-63 21:13:00 Test Item Value Reference Range Interpretation Comments Hgb (test code = Hgb) 12.4 12.0-16.0 [facility] CampusXuhvkyqTTMRPQUMOP2155-05-87 21:13:00 Test Item Value Reference Range Interpretation Comments Hct (test code = Hct) 37.9 36.0-48.0 [facility] CampusYubfdlrRYPYAXLNMY2389-46-09 21:13:00 Test Item Value Reference Range Interpretation Comments MCV (test code = MCV) 78.9 80.0-98.0 [facility] CampusXmxqwtlXKPLASVGAS4583-24-03 21:13:00 Test Item Value Reference Range Interpretation Comments MCH (test code = MCH) 25.7 pg 27.0-31.0 [facility] CampusLyubmxfVGUUEBCTZJ3372-44-47 21:13:00 Test Item Value Reference Range Interpretation Comments MCHC (test code = MCHC) 32.6 32.0-36.0 [facility] CampusPrymdqrRTUFDFRAHF6379-32-65 21:13:00 Test Item Value Reference Range Interpretation Comments RDW (test code = RDW) 15.5 11.5-14.5 [facility] CampusDmricydXOEWNKLAUH8061-51-07 21:13:00 Test Item Value Reference Range Interpretation Comments Platelet (test code = Platelet) 243 133-450 [facility] CampusKyjhfmhCQGSDJYWSA0250-86-15 21:13:00 Test Item Value Reference Range Interpretation Comments MPV (test code = MPV) 9.4 7.4-10.4 [facility] CampusLjdlozjZAPZEWQSRK1657-39-02 21:13:00 Test Item Value Reference Range Interpretation Comments Segs (test code = Segs) 56.1 45.0-75.0 [place] 705381-05-24 21:13:00 Test Item Value Reference Range Interpretation Comments Lymphocytes (test code = Lymphocytes) 32.2 20.0-40.0 [place] 705381-05-24 21:13:00 Test Item Value Reference Range Interpretation Comments Monocytes (test code = Monocytes) 9.1 2.0-12.0 [place] 705381-05-24 21:13:00 Test Item Value Reference Range Interpretation Comments Eosinophils (test code = 2.2 See_Comment [A utomated message] The Eosinophils) system which ge nerated this result tra nsmitted reference range : <=4.0. The reference r kat was not used to int erpret this result as normal/abnormal . [place] [address]-05-24 21:13:00 Test Item Value Reference Range Interpretation Comments Basophils (test code = 0.4 See_Comment [Aut omated message] The Basophils) system which ge nerated this result tra nsmitted reference range : <=1.0. The reference r kat was not used to int erpret this result as normal/abnormal . [place] 705381-05-24 21:13:00 Test Item Value Reference Range Interpretation Comments Neutrophils # (test code = Neutrophils 4.4 1.5-8.1 #) [place] [address]-05-24 21:13:00 Test Item Value Reference Range Interpretation Comments Lymphocytes # (test code = Lymphocytes 2.5 1.0-5.5 #) [place] [address]-05-24 21:13:00 Test Item Value Reference Range Interpretation Comments Monocytes # (test code 0.7 See_Comment [Aut omated message] The = Monocytes #) system which generated this result tra nsmitted reference range : <=0.8. The reference r kat was not used to int erpret this result as normal/abnormal . [place] [address]-05-24 21:13:00 Test Item Value Reference Range Interpretation Comments Eosinophils # (test code 0.2 See_Comment [A utomated message] The = Eosinophils #) system [facility] h generated this result tra nsmitted reference range : <=0.5. The reference r kat was not used to int erpret this result as normal/abnormal . [facility]DltcnljTWTKPEEAYG8672-98-03 21:13:00 Test Item Value Reference Range Interpretation Comments Microcyte (test code = 1+ *ABN*(01/20/21 Microcyte) 4:13 PM) [facility]2021-05-24 21:13:00 Test Item Value Reference Range Interpretation Comments Glucose Lvl (test code = Glucose Lvl) 89 70-99 [place] 955981-05-24 21:13:00 Test Item Value Reference Range Interpretation Comments BUN (test code = BUN) 8 7-22 [place] 955981-05-24 21:13:00 Test Item Value Reference Range Interpretation Comments Creatinine Lvl (test code = Creatinine 0.55 0.50-1.40 Lvl) [place] 955981-05-24 21:13:00 Test Item Value Reference Range Interpretation Comments Sodium Lvl (test code = Sodium Lvl) 140 135-145 [place] 955981-05-24 21:13:00 Test Item Value Reference Range Interpretation Comments Potassium Lvl (test code = Potassium 3.5 3.5-5.1 Lvl) [facility]2021-05-24 21:13:00 Test Item Value Reference Range Interpretation Comments Chloride Lvl (test code = Chloride Lvl) 109 95-109 [facility]2021-05-24 21:13:00 Test Item Value Reference Range Interpretation Comments CO2 (test code = CO2) 27 24-32 [place] 955981-05-24 21:13:00 Test Item Value Reference Range Interpretation Comments Calcium Lvl (test code = Calcium Lvl) 9.0 8.5-10.5 [facility]2021-05-24 21:13:00 Test Item Value Reference Range Interpretation Comments AGAP (test code = AGAP) 7.5 10.0-20.0 [facility]2021-05-24 21:13:00 Test Item Value Reference Range Interpretation Comments eGFR (test code = eGFR) 126 [facility]2021-05-24 21:13:00 Test Item Value Reference Range Interpretation Comments Lactic Acid Lvl (test code = Lactic 0.6 0.5-2.2 Acid Lvl) [facility] CenterIqvdpjcVOVWEELOPQRDM2342-67-12 21:13:00 Test Item Value Reference Range Interpretation Comments hCG Tot (test code = hCG Tot) no gt [facility] CampusGafgymvVCYYEGXRVR1029-78-61 21:13:00 Test Item Value Reference Range Interpretation Comments WBC X 10x3 (test code = WBC X 10x3) 7.9 3.7-10.4 [place] 705381-05-24 21:13:00 Test Item Value Reference Range Interpretation Comments RBC X 10x6 (test code = RBC X 10x6) 4.80 4.20-5.40 [place] 705381-05-24 21:13:00 Test Item Value Reference Range Interpretation Comments Hgb (test code = Hgb) 12.4 12.0-16.0 [place] [address]-05-24 21:13:00 Test Item Value Reference Range Interpretation Comments Hct (test code = Hct) 37.9 36.0-48.0 [place] 705381-05-24 21:13:00 Test Item Value Reference Range Interpretation Comments MCV (test code = MCV) 78.9 80.0-98.0 [facility] CampusYxnuawjYFMKNVZIVR2754-70-78 21:13:00 Test Item Value Reference Range Interpretation Comments MCH (test code = MCH) 25.7 pg 27.0-31.0 [facility] CampusYiioqkrYCZSESBHYV8256-73-96 21:13:00 Test Item Value Reference Range Interpretation Comments MCHC (test code = MCHC) 32.6 32.0-36.0 [facility] CampusPpxcwstABRQZEPAZA7315-91-10 21:13:00 Test Item Value Reference Range Interpretation Comments RDW (test code = RDW) 15.5 11.5-14.5 [place] 705381-05-24 21:13:00 Test Item Value Reference Range Interpretation Comments Platelet (test code = Platelet) 243 133-450 [facility] CampusAcbiwdnLYFVCNLPTN0827-44-31 21:13:00 Test Item Value Reference Range Interpretation Comments MPV (test code = MPV) 9.4 7.4-10.4 [place] [address]-05-24 21:13:00 Test Item Value Reference Range Interpretation Comments Segs (test code = Segs) 56.1 45.0-75.0 [place] 705381-05-24 21:13:00 Test Item Value Reference Range Interpretation Comments Lymphocytes (test code = Lymphocytes) 32.2 20.0-40.0 [facility] CampusHvbqtefLJEWIYLEGY6918-43-80 21:13:00 Test Item Value Reference Range Interpretation Comments Monocytes (test code = Monocytes) 9.1 2.0-12.0 [place] 705381-05-24 21:13:00 Test Item Value Reference Range Interpretation Comments Eosinophils (test code = 2.2 See_Comment [A utomated message] The Eosinophils) system which ge nerated this result tra nsmitted reference range : <=4.0. The reference r kat was not used to int erpret this result as normal/abnormal . [facility] CampusEjtsghqZPRCLUPDEJ3040-71-76 21:13:00 Test Item Value Reference Range Interpretation Comments Basophils (test code = 0.4 See_Comment [Aut omated message] The Basophils) system which ge nerated this result tra nsmitted reference range : <=1.0. The reference r kat was not used to int erpret this result as normal/abnormal . [facility] CampusNmqnsbjDKKUYFCYOT7666-27-51 21:13:00 Test Item Value Reference Range Interpretation Comments Neutrophils # (test code = Neutrophils 4.4 1.5-8.1 #) [facility] CampusCnxwgcyHEGMUQCTOR6095-79-52 21:13:00 Test Item Value Reference Range Interpretation Comments Lymphocytes # (test code = Lymphocytes 2.5 1.0-5.5 #) [facility] CampusGuqwinpJNKSZCNOLW6783-32-85 21:13:00 Test Item Value Reference Range Interpretation Comments Monocytes # (test code 0.7 See_Comment [Aut omated message] The = Monocytes #) system which generated this result tra nsmitted reference range : <=0.8. The reference r kat was not used to int erpret this result as normal/abnormal . [facility] CampusKjpyhneJZBURECULC9153-38-25 21:13:00 Test Item Value Reference Range Interpretation Comments Eosinophils # (test code 0.2 See_Comment [A utomated message] The = Eosinophils #) system whic h generated this result tra nsmitted reference range : <=0.5. The reference r kat was not used to int erpret this result as normal/abnormal . [facility] CampusQhumoirXFGNDLVGUT1715-77-25 21:13:00 Test Item Value Reference Range Interpretation Comments Microcyte (test code = 1+ *ABN*(01/20/21 Microcyte) 4:13 PM) [facility]2021-05-24 21:13:00 Test Item Value Reference Range Interpretation Comments Glucose Lvl (test code = Glucose Lvl) 89 70-99 [place] 955981-05-24 21:13:00 Test Item Value Reference Range Interpretation Comments BUN (test code = BUN) 8 7-22 [facility]2021-05-24 21:13:00 Test Item Value Reference Range Interpretation Comments Creatinine Lvl (test code = Creatinine 0.55 0.50-1.40 Lvl) [facility]2021-05-24 21:13:00 Test Item Value Reference Range Interpretation Comments Sodium Lvl (test code = Sodium Lvl) 140 135-145 [facility]2021-05-24 21:13:00 Test Item Value Reference Range Interpretation Comments Potassium Lvl (test code = Potassium 3.5 3.5-5.1 Lvl) [facility]2021-05-24 21:13:00 Test Item Value Reference Range Interpretation Comments Chloride Lvl (test code = Chloride Lvl) 109 95-109 [facility]2021-05-24 21:13:00 Test Item Value Reference Range Interpretation Comments CO2 (test code = CO2) 27 24-32 [facility]2021-05-24 21:13:00 Test Item Value Reference Range Interpretation Comments Calcium Lvl (test code = Calcium Lvl) 9.0 8.5-10.5 [facility]2021-05-24 21:13:00 Test Item Value Reference Range Interpretation Comments AGAP (test code = AGAP) 7.5 10.0-20.0 [facility]2021-05-24 21:13:00 Test Item Value Reference Range Interpretation Comments eGFR (test code = eGFR) 126 [facility] [place]2021-05-24 21:13:00 Test Item Value Reference Range Interpretation Comments Lactic Acid Lvl (test code = Lactic 0.6 0.5-2.2 Acid Lvl) [facility]or[facility]ueqQFGJLVSJLTGXD3211-61-94 21:13:00 Test Item Value Reference Range Interpretation Comments hCG Tot (test code = hCG Tot) no gt [facility]MuqgpzfYCAAAZHVKB0912-99-62 21:13:00 Test Item Value Reference Range Interpretation Comments WBC X 10x3 (test code = WBC X 10x3) 7.9 3.7-10.4 [facility] CampusBexuqccKPZQVBEOMG6856-80-12 21:13:00 Test Item Value Reference Range Interpretation Comments RBC X 10x6 (test code = RBC X 10x6) 4.80 4.20-5.40 [place] [id number] 21:13:00 Test Item Value Reference Range Interpretation Comments Hgb (test code = Hgb) 12.4 12.0-16.0 [place] [address]-05-24 21:13:00 Test Item Value Reference Range Interpretation Comments Hct (test code = Hct) 37.9 36.0-48.0 [facility] CampusTxyysesPOLVZNLUDE1092-66-02 21:13:00 Test Item Value Reference Range Interpretation Comments MCV (test code = MCV) 78.9 80.0-98.0 [place] [address]-05-24 21:13:00 Test Item Value Reference Range Interpretation Comments MCH (test code = MCH) 25.7 pg 27.0-31.0 [facility] CampusBxjykqeTJYBKFOBOU3086-22-43 21:13:00 Test Item Value Reference Range Interpretation Comments MCHC (test code = MCHC) 32.6 32.0-36.0 [facility] CampusQqegbuaUTPZVBRVZR1215-17-72 21:13:00 Test Item Value Reference Range Interpretation Comments RDW (test code = RDW) 15.5 11.5-14.5 [place] [id number] 21:13:00 Test Item Value Reference Range Interpretation Comments Platelet (test code = Platelet) 243 133-450 [facility] CampusLwyphrrZSSCZNYZBI1467-00-85 21:13:00 Test Item Value Reference Range Interpretation Comments MPV (test code = MPV) 9.4 7.4-10.4 [place] [address]-05-24 21:13:00 Test Item Value Reference Range Interpretation Comments Segs (test code = Segs) 56.1 45.0-75.0 [place] 705381-05-24 21:13:00 Test Item Value Reference Range Interpretation Comments Lymphocytes (test code = Lymphocytes) 32.2 20.0-40.0 [place] 705381-05-24 21:13:00 Test Item Value Reference Range Interpretation Comments Monocytes (test code = Monocytes) 9.1 2.0-12.0 [facility] CampusZafzftaFROWEHQWZH9275-91-97 21:13:00 Test Item Value Reference Range Interpretation Comments Eosinophils (test code = 2.2 See_Comment [A utomated message] The Eosinophils) system which ge nerated this result tra nsmitted reference range : <=4.0. The reference r kat was not used to int erpret this result as normal/abnormal . [facility] CampusUxailctUAWNSDQOBY1998-09-21 21:13:00 Test Item Value Reference Range Interpretation Comments Basophils (test code = 0.4 See_Comment [Aut omated message] The Basophils) system which ge nerated this result tra nsmitted reference range : <=1.0. The reference r kat was not used to int erpret this result as normal/abnormal . [facility] CampusJybmaroZOADSBPKLW7742-14-36 21:13:00 Test Item Value Reference Range Interpretation Comments Neutrophils # (test code = Neutrophils 4.4 1.5-8.1 #) [facility] CampusXfvsijiQCJAUIILNO0323-93-19 21:13:00 Test Item Value Reference Range Interpretation Comments Lymphocytes # (test code = Lymphocytes 2.5 1.0-5.5 #) [facility] CampusZhroankAWQBJVRHLU1678-96-47 21:13:00 Test Item Value Reference Range Interpretation Comments Monocytes # (test code 0.7 See_Comment [Aut omated message] The = Monocytes #) system which generated this result tra nsmitted reference range : <=0.8. The reference r kat was not used to int erpret this result as normal/abnormal . [facility] CampusVbeouowQXPTNQOWDH8399-97-46 21:13:00 Test Item Value Reference Range Interpretation Comments Eosinophils # (test code 0.2 See_Comment [A utomated message] The = Eosinophils #) system whic h generated this result tra nsmitted reference range : <=0.5. The reference r kat was not used to int erpret this result as normal/abnormal . [facility] CampusZfgdtoqQKMIWMGZFT8826-28-56 21:13:00 Test Item Value Reference Range Interpretation Comments Microcyte (test code = 1+ *ABN*(01/20/21 Microcyte) 4:13 PM) [facility] [place]2016-01-21 13:03:00 Test Item Value Reference Range Interpretation Comments Magnesium Lvl (test code = Magnesium 1.9 1.8-2.4 Lvl) [facility] [place]2016-01-21 13:03:00 Test Item Value Reference Range Interpretation Comments eGFR (test code = eGFR) 127 [facility] [place]2016-01-21 13:03:00 Test Item Value Reference Range Interpretation Comments Creatinine Lvl (test code = Creatinine 0.60 0.50-1.40 Lvl) [facility] [place]2016-01-21 13:03:00 Test Item Value Reference Range Interpretation Comments Glucose Lvl (test code = Glucose Lvl) 82 70-99 [facility] [place]2016-01-21 13:03:00 Test Item Value Reference Range Interpretation Comments BUN (test code = BUN) 7 7-22 [facility] [place]2016-01-21 13:03:00 Test Item Value Reference Range Interpretation Comments Potassium Lvl (test code = Potassium 4.1 3.5-5.1 Lvl) [facility] [place]2016-01-21 13:03:00 Test Item Value Reference Range Interpretation Comments Sodium Lvl (test code = Sodium Lvl) 141 135-145 [facility] [place]2016-01-21 13:03:00 Test Item Value Reference Range Interpretation Comments Chloride Lvl (test code = Chloride Lvl) 108 95-109 [facility] [place]2016-01-21 13:03:00 Test Item Value Reference Range Interpretation Comments CO2 (test code = CO2) 20 24-32 [facility] [place]2016-01-21 13:03:00 Test Item Value Reference Range Interpretation Comments Calcium Lvl (test code = Calcium Lvl) 8.9 8.5-10.5 [facility] [place]2016-01-21 13:03:00 Test Item Value Reference Range Interpretation Comments AGAP (test code = AGAP) 17.1 10.0-20.0 [facility] CampusKpgwlekNLYKPGQZUZ8772-85-27 13:03:00 Test Item Value Reference Range Interpretation Comments Lymphocytes # (test code = Lymphocytes 2.3 1.0-5.5 #) [facility] CampusEcuterdLHTOAVNTGB3985-55-55 13:03:00 Test Item Value Reference Range Interpretation Comments Basophils (test code = 1.0 See_Comment [Aut omated message] The Basophils) system which ge nerated this result tra nsmitted reference range : <=1.0. The reference r kat was not used to int erpret this result as normal/abnormal . [facility] CampusWlvtpdpYCRDNPSOJM7364-05-64 13:03:00 Test Item Value Reference Range Interpretation Comments Segs-Bands # (test code = Segs-Bands #) 3.3 1.5-8.1 [facility] CampusEzlppyeDYSRJCOOBO5478-14-09 13:03:00 Test Item Value Reference Range Interpretation Comments Eosinophils (test code = 2.5 See_Comment [A utomated message] The Eosinophils) system which ge nerated this result tra nsmitted reference range : <=4.0. The reference r kat was not used to int erpret this result as normal/abnormal . [facility] CampusGmhuzbsCOZSWTKFCR7852-54-71 13:03:00 Test Item Value Reference Range Interpretation Comments Eosinophils # (test code 0.2 See_Comment [A utomated message] The = Eosinophils #) system [facility] h generated this result tra nsmitted reference range : <=0.5. The reference r kat was not used to int erpret this result as normal/abnormal . [facility] CampusZugsvgzOKTBZTDTPY2856-81-80 13:03:00 Test Item Value Reference Range Interpretation Comments Monocytes # (test code 0.7 See_Comment [Aut omated message] The = Monocytes #) system which generated this result tra nsmitted reference range : <=0.8. The reference r kat was not used to int erpret this result as normal/abnormal . [facility] CampusJpwwbvlHFOXJQEGRO8442-32-18 13:03:00 Test Item Value Reference Range Interpretation Comments Microcyte (test code = 1+ *ABN*(09/19/15 Microcyte) 7:03 AM) [facility] CampusEeivhsqOYVVOKDOBY8658-55-47 13:03:00 Test Item Value Reference Range Interpretation Comments Basophils # (test code 0.1 See_Comment [Aut omated message] The = Basophils #) system which generated this result tra nsmitted reference range : <=0.2. The reference r kat was not used to int erpret this result as normal/abnormal . [facility] CampusMxrvrckEWNIZVGFXW0730-44-08 13:03:00 Test Item Value Reference Range Interpretation Comments Monocytes (test code = Monocytes) 10.4 2.0-12.0 [facility]ElaykajKPUBJGZDCV2146-17-23 13:03:00 Test Item Value Reference Range Interpretation Comments Lymphocytes (test code = Lymphocytes) 35.3 20.0-40.0 [facility] RegionVxstengWAYEFUKHDJ5767-42-48 13:03:00 Test Item Value Reference Range Interpretation Comments Segs (test code = Segs) 50.8 45.0-75.0 [facility] RegionVhpodqvEBUTLSSBKD5549-85-89 13:03:00 Test Item Value Reference Range Interpretation Comments MCHC (test code = MCHC) 30.5 32.0-36.0 [facility] RegionTsdgdqrYQJQUSZGBG8706-62-70 13:03:00 Test Item Value Reference Range Interpretation Comments Platelet (test code = Platelet) 175 133-450 [facility] CampusXkzahbgIIYQGFIXLJ1973-01-69 13:03:00 Test Item Value Reference Range Interpretation Comments RDW (test code = RDW) 17.1 11.5-14.5 [facility] CampusOjonjfqXWCKWHAYLZ5866-13-33 13:03:00 Test Item Value Reference Range Interpretation Comments MCV (test code = MCV) 78.4 80.0-98.0 [facility] RegionMswjmzlZAMKHAWMSL7422-14-56 13:03:00 Test Item Value Reference Range Interpretation Comments MCH (test code = MCH) 24.0 pg 27.0-31.0 [facility] CampusLbpgdasHWYGZOZKFX2455-27-02 13:03:00 Test Item Value Reference Range Interpretation Comments RBC (test code = RBC) 5.15 4.20-5.40 [facility]HuwjwhrVJDUOQYSCX0130-23-63 13:03:00 Test Item Value Reference Range Interpretation Comments Hct (test code = Hct) 40.4 36.0-48.0 [facility] RegionLlxnfbwVFIOYGQZEA6644-47-90 13:03:00 Test Item Value Reference Range Interpretation Comments WBC (test code = WBC) 6.5 3.7-10.4 [facility] RegionKklzmimCAKFNZHTLE3479-36-03 13:03:00 Test Item Value Reference Range Interpretation Comments MPV (test code = MPV) 10.2 7.4-10.4 [facility] CampusVdvdcnnVUODNODAJH3923-17-46 13:03:00 Test Item Value Reference Range Interpretation Comments Hgb (test code = Hgb) 12.3 12.0-16.0 [facility] [place]2016-01-21 13:03:00 Test Item Value Reference Range Interpretation Comments Magnesium Lvl (test code = Magnesium 1.9 1.8-2.4 Lvl) [facility] [place]2016-01-21 13:03:00 Test Item Value Reference Range Interpretation Comments eGFR (test code = eGFR) 127 [facility] [place]2016-01-21 13:03:00 Test Item Value Reference Range Interpretation Comments Creatinine Lvl (test code = Creatinine 0.60 0.50-1.40 Lvl) [facility] [place]2016-01-21 13:03:00 Test Item Value Reference Range Interpretation Comments Glucose Lvl (test code = Glucose Lvl) 82 70-99 [facility] [place]2016-01-21 13:03:00 Test Item Value Reference Range Interpretation Comments BUN (test code = BUN) 7 7-22 [facility] [place]2016-01-21 13:03:00 Test Item Value Reference Range Interpretation Comments Potassium Lvl (test code = Potassium 4.1 3.5-5.1 Lvl) [facility] [place]2016-01-21 13:03:00 Test Item Value Reference Range Interpretation Comments Sodium Lvl (test code = Sodium Lvl) 141 135-145 [facility] [place]2016-01-21 13:03:00 Test Item Value Reference Range Interpretation Comments Chloride Lvl (test code = Chloride Lvl) 108 95-109 [facility] [place]2016-01-21 13:03:00 Test Item Value Reference Range Interpretation Comments CO2 (test code = CO2) 20 24-32 [facility] [place]2016-01-21 13:03:00 Test Item Value Reference Range Interpretation Comments Calcium Lvl (test code = Calcium Lvl) 8.9 8.5-10.5 [facility] [place]2016-01-21 13:03:00 Test Item Value Reference Range Interpretation Comments AGAP (test code = AGAP) 17.1 10.0-20.0 [facility] CampusWegxqepEIBDECODUF8344-21-49 13:03:00 Test Item Value Reference Range Interpretation Comments Lymphocytes # (test code = Lymphocytes 2.3 1.0-5.5 #) [facility] CampusHqftarlHAHLNDYANZ2357-59-60 13:03:00 Test Item Value Reference Range Interpretation Comments Basophils (test code = 1.0 See_Comment [Aut omated message] The Basophils) system which ge nerated this result tra nsmitted reference range : <=1.0. The reference r kat was not used to int erpret this result as normal/abnormal . [facility] CampusYpgwkanDWMXQQHVCC8557-93-25 13:03:00 Test Item Value Reference Range Interpretation Comments Segs-Bands # (test code = Segs-Bands #) 3.3 1.5-8.1 [facility] CampusLpivazoUWOWDIPTHB7685-95-28 13:03:00 Test Item Value Reference Range Interpretation Comments Eosinophils (test code = 2.5 See_Comment [A utomated message] The Eosinophils) system which ge nerated this result tra nsmitted reference range : <=4.0. The reference r kat was not used to int erpret this result as normal/abnormal . [facility] CampusCcatzwsGGYOIOJWDF0355-55-27 13:03:00 Test Item Value Reference Range Interpretation Comments Eosinophils # (test code 0.2 See_Comment [A utomated message] The = Eosinophils #) system [facility] generated this result tra nsmitted reference range : <=0.5. The reference r kat was not used to int erpret this result as normal/abnormal . [facility] CampusAocbduwIGSZGKVXKF6206-70-82 13:03:00 Test Item Value Reference Range Interpretation Comments Monocytes # (test code 0.7 See_Comment [Aut omated message] The = Monocytes #) system which generated this result tra nsmitted reference range : <=0.8. The reference r kat was not used to int erpret this result as normal/abnormal . [facility] CampusRztbzbnSCDMMCGAXF2212-64-41 13:03:00 Test Item Value Reference Range Interpretation Comments Microcyte (test code = 1+ *ABN*(09/19/15 Microcyte) 7:03 AM) [facility] CampusLixopkpAMVAHUWHXF7561-23-75 13:03:00 Test Item Value Reference Range Interpretation Comments Basophils # (test code 0.1 See_Comment [Aut omated message] The = Basophils #) system which generated this result tra nsmitted reference range : <=0.2. The reference r kat was not used to int erpret this result as normal/abnormal . [facility] CampusAjeojgwIUROESQSGZ3138-55-13 13:03:00 Test Item Value Reference Range Interpretation Comments Monocytes (test code = Monocytes) 10.4 2.0-12.0 [facility]CwmxckhGAQASYGHCG9998-96-77 13:03:00 Test Item Value Reference Range Interpretation Comments Lymphocytes (test code = Lymphocytes) 35.3 20.0-40.0 [facility] CenterVwwmwrvTVSDDWOKIP7893-83-44 13:03:00 Test Item Value Reference Range Interpretation Comments Segs (test code = Segs) 50.8 45.0-75.0 [facility]XnhzyceYERCZFTCKB6376-42-23 13:03:00 Test Item Value Reference Range Interpretation Comments MCHC (test code = MCHC) 30.5 32.0-36.0 [facility] CenterQjisiboCVRQHGGWEO6988-52-89 13:03:00 Test Item Value Reference Range Interpretation Comments Platelet (test code = Platelet) 175 133-450 [facility] CenterEydotpiMZNCYARRML4959-75-99 13:03:00 Test Item Value Reference Range Interpretation Comments RDW (test code = RDW) 17.1 11.5-14.5 [facility] RegionYnpuuujCAYWTEAACC5847-23-70 13:03:00 Test Item Value Reference Range Interpretation Comments MCV (test code = MCV) 78.4 80.0-98.0 [facility] CenterGizekzbBKLWILERHH7218-60-99 13:03:00 Test Item Value Reference Range Interpretation Comments MCH (test code = MCH) 24.0 pg 27.0-31.0 [facility] CenterQnfzhwbCRFFEJGCQX3426-60-35 13:03:00 Test Item Value Reference Range Interpretation Comments RBC (test code = RBC) 5.15 4.20-5.40 [facility] CenterYsjmgnaGJCEYFVNFI0616-04-17 13:03:00 Test Item Value Reference Range Interpretation Comments Hct (test code = Hct) 40.4 36.0-48.0 [facility] CenterKysdxxoYOVOMOGTRN6029-79-49 13:03:00 Test Item Value Reference Range Interpretation Comments WBC (test code = WBC) 6.5 3.7-10.4 [facility] CenterZlypsrqVDHIYLZAWZ5733-98-28 13:03:00 Test Item Value Reference Range Interpretation Comments MPV (test code = MPV) 10.2 7.4-10.4 [facility] RegionZwgeoirHPRKOGYQQE8898-12-31 13:03:00 Test Item Value Reference Range Interpretation Comments Hgb (test code = Hgb) 12.3 12.0-16.0 [facility] [place]2016-01-21 13:03:00 Test Item Value Reference Range Interpretation Comments Magnesium Lvl (test code = Magnesium 1.9 1.8-2.4 Lvl) [facility] [place]2016-01-21 13:03:00 Test Item Value Reference Range Interpretation Comments eGFR (test code = eGFR) 127 [facility] [place]2016-01-21 13:03:00 Test Item Value Reference Range Interpretation Comments Creatinine Lvl (test code = Creatinine 0.60 0.50-1.40 Lvl) [facility] [place]2016-01-21 13:03:00 Test Item Value Reference Range Interpretation Comments Glucose Lvl (test code = Glucose Lvl) 82 70-99 [facility] [place]2016-01-21 13:03:00 Test Item Value Reference Range Interpretation Comments BUN (test code = BUN) 7 7-22 [facility] [place]2016-01-21 13:03:00 Test Item Value Reference Range Interpretation Comments Potassium Lvl (test code = Potassium 4.1 3.5-5.1 Lvl) [facility] [place]2016-01-21 13:03:00 Test Item Value Reference Range Interpretation Comments Sodium Lvl (test code = Sodium Lvl) 141 135-145 [facility] [place]2016-01-21 13:03:00 Test Item Value Reference Range Interpretation Comments Chloride Lvl (test code = Chloride Lvl) 108 95-109 [facility] [place]2016-01-21 13:03:00 Test Item Value Reference Range Interpretation Comments CO2 (test code = CO2) 20 24-32 [facility] [place]2016-01-21 13:03:00 Test Item Value Reference Range Interpretation Comments Calcium Lvl (test code = Calcium Lvl) 8.9 8.5-10.5 [facility] [place]2016-01-21 13:03:00 Test Item Value Reference Range Interpretation Comments AGAP (test code = AGAP) 17.1 10.0-20.0 [facility] CampusNfwmcmhCDEFLSOKED2685-13-90 13:03:00 Test Item Value Reference Range Interpretation Comments Lymphocytes # (test code = Lymphocytes 2.3 1.0-5.5 #) [facility] CampusRyhqwrgPSXBDDFWKK1709-63-27 13:03:00 Test Item Value Reference Range Interpretation Comments Basophils (test code = 1.0 See_Comment [Aut omated message] The Basophils) system which ge nerated this result tra nsmitted reference range : <=1.0. The reference r kat was not used to int erpret this result as normal/abnormal . [facility] CampusDmdegedISZADVSOPE3783-89-23 13:03:00 Test Item Value Reference Range Interpretation Comments Segs-Bands # (test code = Segs-Bands #) 3.3 1.5-8.1 [facility] CampusBrvtxxlZTPNKIROHF1706-13-20 13:03:00 Test Item Value Reference Range Interpretation Comments Eosinophils (test code = 2.5 See_Comment [A utomated message] The Eosinophils) system which ge nerated this result tra nsmitted reference range : <=4.0. The reference r kat was not used to int erpret this result as normal/abnormal . [facility] CampusPmoifetWZMHAANPII4326-66-23 13:03:00 Test Item Value Reference Range Interpretation Comments Eosinophils # (test code 0.2 See_Comment [A utomated message] The = Eosinophils #) system wh h generated this result tra nsmitted reference range : <=0.5. The reference r kat was not used to int erpret this result as normal/abnormal . [facility] CampusNmezpprLEQXCCHDLG3335-57-27 13:03:00 Test Item Value Reference Range Interpretation Comments Monocytes # (test code 0.7 See_Comment [Aut omated message] The = Monocytes #) system which generated this result tra nsmitted reference range : <=0.8. The reference r kat was not used to int erpret this result as normal/abnormal . [facility] CampusYsmajvvQVUDEVIXKU8190-76-33 13:03:00 Test Item Value Reference Range Interpretation Comments Microcyte (test code = 1+ *ABN*(09/19/15 Microcyte) 7:03 AM) [facility] CampusGvqudonRJSYEOSAVV1856-77-80 13:03:00 Test Item Value Reference Range Interpretation Comments Basophils # (test code 0.1 See_Comment [Aut omated message] The = Basophils #) system which generated this result tra nsmitted reference range : <=0.2. The reference r kat was not used to int erpret this result as normal/abnormal . [facility] CampusJxzxqqjBFXVGYZYUP0851-24-70 13:03:00 Test Item Value Reference Range Interpretation Comments Monocytes (test code = Monocytes) 10.4 2.0-12.0 [facility] CampusCnkpqewRUCYKLEVQZ8494-10-97 13:03:00 Test Item Value Reference Range Interpretation Comments Lymphocytes (test code = Lymphocytes) 35.3 20.0-40.0 [facility] CampusCboizeiCBHUCNIVEK8513-05-13 13:03:00 Test Item Value Reference Range Interpretation Comments Segs (test code = Segs) 50.8 45.0-75.0 [facility] CampusHauipsfRRMLKDHOOQ2788-09-01 13:03:00 Test Item Value Reference Range Interpretation Comments MCHC (test code = MCHC) 30.5 32.0-36.0 [facility] CampusGhnglirDDYNARHMFS0127-05-66 13:03:00 Test Item Value Reference Range Interpretation Comments Platelet (test code = Platelet) 175 133-450 [facility] CampusQbcbmxrDKSVPVLZSE9386-95-94 13:03:00 Test Item Value Reference Range Interpretation Comments RDW (test code = RDW) 17.1 11.5-14.5 [facility] CampusPiodqyjFFOAEXUIIG7124-98-00 13:03:00 Test Item Value Reference Range Interpretation Comments MCV (test code = MCV) 78.4 80.0-98.0 [facility] CampusJcrhfueNGIQZQKGZZ8625-11-33 13:03:00 Test Item Value Reference Range Interpretation Comments MCH (test code = MCH) 24.0 pg 27.0-31.0 [facility] CampusTwvfvzkQIZLXFXWBS6664-87-28 13:03:00 Test Item Value Reference Range Interpretation Comments RBC (test code = RBC) 5.15 4.20-5.40 [facility] CampusXschntrHSLKRJOIEP8509-71-60 13:03:00 Test Item Value Reference Range Interpretation Comments Hct (test code = Hct) 40.4 36.0-48.0 [facility] CampusHqldavgSKEAJVBSPA3715-03-37 13:03:00 Test Item Value Reference Range Interpretation Comments WBC (test code = WBC) 6.5 3.7-10.4 [facility] CampusOzcpmahNEDMAVVADK2804-61-17 13:03:00 Test Item Value Reference Range Interpretation Comments MPV (test code = MPV) 10.2 7.4-10.4 [facility] CampusYuxhhjvUNONAXJJSS2356-82-43 13:03:00 Test Item Value Reference Range Interpretation Comments Hgb (test code = Hgb) 12.3 12.0-16.0 [facility] [place]2016-01-20 12:40:00 Test Item Value Reference Range Interpretation Comments eGFR (test code = eGFR) 129 [facility] [place]2016-01-20 12:40:00 Test Item Value Reference Range Interpretation Comments Creatinine Lvl (test code = Creatinine 0.58 0.50-1.40 Lvl) [facility] [place]2016-01-20 12:40:00 Test Item Value Reference Range Interpretation Comments CO2 (test code = CO2) 23 - [facility] [place]2016-01-20 12:40:00 Test Item Value Reference Range Interpretation Comments Chloride Lvl (test code = Chloride Lvl) 109 95-109 [facility]2016-01-20 12:40:00 Test Item Value Reference Range Interpretation Comments Calcium Lvl (test code = Calcium Lvl) 9.0 8.5-10.5 [facility]2016-01-20 12:40:00 Test Item Value Reference Range Interpretation Comments Potassium Lvl (test code = Potassium 3.7 3.5-5.1 Lvl) [facility]2016-01-20 12:40:00 Test Item Value Reference Range Interpretation Comments AGAP (test code = AGAP) 12.7 10.0-20.0 [facility]2016-01-20 12:40:00 Test Item Value Reference Range Interpretation Comments BUN (test code = BUN) 9 7-22 [facility]2016-01-20 12:40:00 Test Item Value Reference Range Interpretation Comments Sodium Lvl (test code = Sodium Lvl) 141 135-145 [facility]2016-01-20 12:40:00 Test Item Value Reference Range Interpretation Comments Glucose Lvl (test code = Glucose Lvl) 87 70-99 [facility]2016-01-20 12:40:00 Test Item Value Reference Range Interpretation Comments eGFR (test code = eGFR) 129 [facility]2016-01-20 12:40:00 Test Item Value Reference Range Interpretation Comments Creatinine Lvl (test code = Creatinine 0.58 0.50-1.40 Lvl) [facility]2016-01-20 12:40:00 Test Item Value Reference Range Interpretation Comments CO2 (test code = CO2) 23 24-32 [facility]2016-01-20 12:40:00 Test Item Value Reference Range Interpretation Comments Chloride Lvl (test code = Chloride Lvl) 109 95-109 [facility]2016-01-20 12:40:00 Test Item Value Reference Range Interpretation Comments Calcium Lvl (test code = Calcium Lvl) 9.0 8.5-10.5 [facility]2016-01-20 12:40:00 Test Item Value Reference Range Interpretation Comments Potassium Lvl (test code = Potassium 3.7 3.5-5.1 Lvl) [facility]2016-01-20 12:40:00 Test Item Value Reference Range Interpretation Comments AGAP (test code = AGAP) 12.7 10.0-20.0 [facility]2016-01-20 12:40:00 Test Item Value Reference Range Interpretation Comments BUN (test code = BUN) 9 7-22 [facility]2016-01-20 12:40:00 Test Item Value Reference Range Interpretation Comments Sodium Lvl (test code = Sodium Lvl) 141 135-145 [facility]2016-01-20 12:40:00 Test Item Value Reference Range Interpretation Comments Glucose Lvl (test code = Glucose Lvl) 87 70-99 [facility]2016-01-20 12:40:00 Test Item Value Reference Range Interpretation Comments eGFR (test code = eGFR) 129 [facility]2016-01-20 12:40:00 Test Item Value Reference Range Interpretation Comments Creatinine Lvl (test code = Creatinine 0.58 0.50-1.40 Lvl) [facility]2016-01-20 12:40:00 Test Item Value Reference Range Interpretation Comments CO2 (test code = CO2) 23 24-32 [facility]2016-01-20 12:40:00 Test Item Value Reference Range Interpretation Comments Chloride Lvl (test code = Chloride Lvl) 109 95-109 [facility]2016-01-20 12:40:00 Test Item Value Reference Range Interpretation Comments Calcium Lvl (test code = Calcium Lvl) 9.0 8.5-10.5 [facility]2016-01-20 12:40:00 Test Item Value Reference Range Interpretation Comments Potassium Lvl (test code = Potassium 3.7 3.5-5.1 Lvl) [facility]2016-01-20 12:40:00 Test Item Value Reference Range Interpretation Comments AGAP (test code = AGAP) 12.7 10.0-20.0 [facility]2016-01-20 12:40:00 Test Item Value Reference Range Interpretation Comments BUN (test code = BUN) 9 7-22 [facility]2016-01-20 12:40:00 Test Item Value Reference Range Interpretation Comments Sodium Lvl (test code = Sodium Lvl) 141 135-145 [facility]2016-01-20 12:40:00 Test Item Value Reference Range Interpretation Comments Glucose Lvl (test code = Glucose Lvl) 87 70-99 [facility] AND [id number] 05:30:00 Test Item Value Reference Range Interpretation Comments UA Urobilinogen (test code = UA <=1.0 mg/dL 0.1-1.0 Urobilinogen) [facility] AND [id number] 05:30:00 Test Item Value Reference Range Interpretation Comments UA Color (test code = UA Color) Marry [facility] AND [id number] 05:30:00 Test Item Value Reference Range Interpretation Comments UA Bacteria (test code = UA Many /HPF Bacteria) [facility] AND [id number] 05:30:00 Test Item Value Reference Range Interpretation Comments UA Mucus (test code = UA Mucus) Many /LPF [facility] AND [id number] 05:30:00 Test Item Value Reference Range Interpretation Comments UA Leuk Est (test code Large *ABN*(09/17/15 = UA Leuk Est) 11:30 PM) [facility] AND [id number] 05:30:00 Test Item Value Reference Range Interpretation Comments UA Sq Epi (test code = UA Sq Epi) Many /LPF [facility] AND [id number] 05:30:00 Test Item Value Reference Range Interpretation Comments UA Nitrite (test code Negative (09/17/15 11:30 = UA Nitrite) PM) [facility] AND [id number] 05:30:00 Test Item Value Reference Range Interpretation Comments UA WBC (test code = 16 See_Comment [Automa arvind message] The UA WBC) system which ge nerated this result transmit arvind reference range : <=5. The reference range was not used to interpr et this result as mario l/abnormal. [facility] [id number] 05:30:00 Test Item Value Reference Range Interpretation Comments UA RBC (test code = 5 See_Comment [Automa arvind message] The UA RBC) system which ge nerated this result transmit arvind reference range : <=2. The reference range was not used to interpr et this result as mario l/abnormal. [facility] [id number] 05:30:00 Test Item Value Reference Range Interpretation Comments UA Bili (test code = Negative *NA*(09/17/15 UA Bili) 11:30 PM) [facility] [id number] 05:30:00 Test Item Value Reference Range Interpretation Comments UA Blood (test code = Negative (09/17/15 11:30 UA Blood) PM) [facility] AND [id number] 05:30:00 Test Item Value Reference Range Interpretation Comments UA Glucose (test code = UA Negative mg/dL Glucose) [facility] AND [id number] 05:30:00 Test Item Value Reference Range Interpretation Comments UA Ketones (test code = UA Trace mg/dL Ketones) [facility] [id number] 05:30:00 Test Item Value Reference Range Interpretation Comments UA Protein (test code = UA Protein) 30 mg/dL [facility] [id number] 05:30:00 Test Item Value Reference Range Interpretation Comments UA pH (test code = UA pH) 5.0 5.0-8.0 [facility]ann[facility] AND [id number] 05:30:00 Test Item Value Reference Range Interpretation Comments UA Spec Grav (test code = UA Spec Grav) 1.030 [facility]ann[facility] [id number] 05:30:00 Test Item Value Reference Range Interpretation Comments UA Turbidity (test code Marked *ABN*(09/17/15 = UA Turbidity) 11:30 PM) [facility] [id number] 05:30:00 Test Item Value Reference Range Interpretation Comments U Preg (test code = U Negative (09/17/15 11:30 Preg) PM) [facility] AND [id number] 05:30:00 Test Item Value Reference Range Interpretation Comments UA Urobilinogen (test code = UA <=1.0 mg/dL 0.1-1.0 Urobilinogen) [facility] AND [id number] 05:30:00 Test Item Value Reference Range Interpretation Comments UA Color (test code = UA Color) Marry [facility] AND [id number] 05:30:00 Test Item Value Reference Range Interpretation Comments UA Bacteria (test code = UA Many /HPF Bacteria) [facility] AND [id number] 05:30:00 Test Item Value Reference Range Interpretation Comments UA Mucus (test code = UA Mucus) Many /LPF [facility] AND [id number] 05:30:00 Test Item Value Reference Range Interpretation Comments UA Leuk Est (test code Large *ABN*(09/17/15 = UA Leuk Est) 11:30 PM) [facility] AND [id number] 05:30:00 Test Item Value Reference Range Interpretation Comments UA Sq Epi (test code = UA Sq Epi) Many /LPF [facility] AND [id number] 05:30:00 Test Item Value Reference Range Interpretation Comments UA Nitrite (test code Negative (09/17/15 11:30 = UA Nitrite) PM) [facility] AND [id number] 05:30:00 Test Item Value Reference Range Interpretation Comments UA WBC (test code = 16 See_Comment [Automa arvind message] The UA WBC) system which ge nerated this result transmit arvind reference range : <=5. The reference range was not used to interpr et this result as mario l/abnormal. [facility] AND [id number] 05:30:00 Test Item Value Reference Range Interpretation Comments UA RBC (test code = 5 See_Comment [Automa arvind message] The UA RBC) system which ge nerated this result transmit arvind reference range : <=2. The reference range was not used to interpr et this result as mario l/abnormal. [facility] AND [id number] 05:30:00 Test Item Value Reference Range Interpretation Comments UA Bili (test code = Negative *NA*(09/17/15 UA Bili) 11:30 PM) [facility] AND [id number] 05:30:00 Test Item Value Reference Range Interpretation Comments UA Blood (test code = Negative (09/17/15 11:30 UA Blood) PM) [facility] [id number] 05:30:00 Test Item Value Reference Range Interpretation Comments UA Glucose (test code = UA Negative mg/dL Glucose) [facility] AND [id number] 05:30:00 Test Item Value Reference Range Interpretation Comments UA Ketones (test code = UA Trace mg/dL Ketones) [facility] AND [id number] 05:30:00 Test Item Value Reference Range Interpretation Comments UA Protein (test code = UA Protein) 30 mg/dL [facility] AND [id number] 05:30:00 Test Item Value Reference Range Interpretation Comments UA pH (test code = UA pH) 5.0 5.0-8.0 [facility] AND [id number] 05:30:00 Test Item Value Reference Range Interpretation Comments UA Spec Grav (test code = UA Spec Grav) 1.030 [facility] AND [id number] 05:30:00 Test Item Value Reference Range Interpretation Comments UA Turbidity (test code Marked *ABN*(09/17/15 = UA Turbidity) 11:30 PM) [facility] [id number] 05:30:00 Test Item Value Reference Range Interpretation Comments U Preg (test code = U Negative (09/17/15 11:30 Preg) PM) [facility] AND [id number] 05:30:00 Test Item Value Reference Range Interpretation Comments UA Urobilinogen (test code = UA <=1.0 mg/dL 0.1-1.0 Urobilinogen) [facility] AND [id number] 05:30:00 Test Item Value Reference Range Interpretation Comments UA Color (test code = UA Color) Marry [facility] AND [id number] 05:30:00 Test Item Value Reference Range Interpretation Comments UA Bacteria (test code = UA Many /HPF Bacteria) [facility] AND [id number] 05:30:00 Test Item Value Reference Range Interpretation Comments UA Mucus (test code = UA Mucus) Many /LPF [facility] AND [id number] 05:30:00 Test Item Value Reference Range Interpretation Comments UA Leuk Est (test code Large *ABN*(09/17/15 = UA Leuk Est) 11:30 PM) [facility] AND [id number] 05:30:00 Test Item Value Reference Range Interpretation Comments UA Sq Epi (test code = UA Sq Epi) Many /LPF [facility] AND [id number] 05:30:00 Test Item Value Reference Range Interpretation Comments UA Nitrite (test code Negative (09/17/15 11:30 = UA Nitrite) PM) [facility] AND [id number] 05:30:00 Test Item Value Reference Range Interpretation Comments UA WBC (test code = 16 See_Comment [Automa arvind message] The UA WBC) system which ge nerated this result transmit arvind reference range : <=5. The reference range was not used to interpr et this result as mario l/abnormal. [facility] AND [id number] 05:30:00 Test Item Value Reference Range Interpretation Comments UA RBC (test code = 5 See_Comment [Automa arvind message] The UA RBC) system which ge nerated this result transmit arvind reference range : <=2. The reference range was not used to interpr et this result as mario l/abnormal. [facility] AND [id number] 05:30:00 Test Item Value Reference Range Interpretation Comments UA Bili (test code = Negative *NA*(09/17/15 UA Bili) 11:30 PM) [facility] AND [id number] 05:30:00 Test Item Value Reference Range Interpretation Comments UA Blood (test code = Negative (09/17/15 11:30 UA Blood) PM) [facility] AND [id number] 05:30:00 Test Item Value Reference Range Interpretation Comments UA Glucose (test code = UA Negative mg/dL Glucose) [facility] AND [id number] 05:30:00 Test Item Value Reference Range Interpretation Comments UA Ketones (test code = UA Trace mg/dL Ketones) [facility] AND [id number] 05:30:00 Test Item Value Reference Range Interpretation Comments UA Protein (test code = UA Protein) 30 mg/dL [facility] AND [id number] 05:30:00 Test Item Value Reference Range Interpretation Comments UA pH (test code = UA pH) 5.0 5.0-8.0 [facility] [id number] 05:30:00 Test Item Value Reference Range Interpretation Comments UA Spec Grav (test code = UA Spec Grav) 1.030 [facility]ann[facility] [id number] 05:30:00 Test Item Value Reference Range Interpretation Comments UA Turbidity (test code Marked *ABN*(09/17/15 = UA Turbidity) 11:30 PM) [facility] [id number] 05:30:00 Test Item Value Reference Range Interpretation Comments U Preg (test code = U Negative (09/17/15 11:30 Preg) PM) [facility]ieParinGenixCHEM [id number] 02:01:00 Test Item Value Reference Range Interpretation Comments Lipase Lvl (test code = Lipase Lvl) 196 [address] [facility] [id number] 02:01:00 Test Item Value Reference Range Interpretation Comments Amylase Lvl (test code = Amylase Lvl) 33 25-115 [id number] 02:01:00 Test Item Value Reference Range Interpretation Comments AGAP (test code = AGAP) 10.7 10.0-20.0 [id number] 02:01:00 Test Item Value Reference Range Interpretation Comments A/G Ratio (test code = A/G Ratio) 1.2 0.7-1.6 [id number] 02:01:00 Test Item Value Reference Range Interpretation Comments Globulin (test code = Globulin) 3.1 2.0-4.0 [facility]ieLgvqonnUVURUVAZXAJK4927-09-34 02:01:00 Test Item Value Reference Range Interpretation Comments B/C Ratio (test code = B/C Ratio) 13 6-25 [facility][id number] 02:01:00 Test Item Value Reference Range Interpretation Comments Total Protein (test code = Total 6.9 6.4-8.4 Protein) [id number] 02:01:00 Test Item Value Reference Range Interpretation Comments Calcium Lvl (test code = Calcium Lvl) 9.0 8.5-10.5 [facility] C[id number] 02:01:00 Test Item Value Reference Range Interpretation Comments CO2 (test code = CO2) 26 24-32 [facility] C[id number] 02:01:00 Test Item Value Reference Range Interpretation Comments eGFR (test code = eGFR) 110 [facility] CenterTgvtlseFFZETZNRCTIU4211-64-70 02:01:00 Test Item Value Reference Range Interpretation Comments Bili Total (test code = Bili Total) 0.3 0.2-1.3 [facility] C[id number] 02:01:00 Test Item Value Reference Range Interpretation Comments Alk Phos (test code = Alk Phos) 84 39-136 [facility] CenterSwbzrbfGKBLPGFBRRDL7871-14-91 02:01:00 Test Item Value Reference Range Interpretation Comments AST (test code = AST) 17 See_Comment [Auto mated message] The system which ge nerated this result transmit arvind reference range : <=37. The reference range was not used to interpr et this result as mario l/abnormal. [facility] CenterUpxqceqLLLXLNHQNFYH5152-16-15 02:01:00 Test Item Value Reference Range Interpretation Comments ALT (test code = ALT) 42 See_Comment [Auto mated message] The system which ge nerated this result transmit arvind reference range : <=65. The reference range was not used to interpr et this result as mario l/abnormal. [facility] Center[id number] 02:01:00 Test Item Value Reference Range Interpretation Comments Albumin Lvl (test code = Albumin Lvl) 3.8 3.5-5.0 [facility] CenterIltjutnIHJZIECRJFQN7792-48-08 02:01:00 Test Item Value Reference Range Interpretation Comments Sodium Lvl (test code = Sodium Lvl) 139 135-145 [facility] CenterGqsrjkvUAWSMKFTHITM4367-07-83 02:01:00 Test Item Value Reference Range Interpretation Comments Chloride Lvl (test code = Chloride Lvl) 106 95-109 [facility] CenterDeumztuFDPNVMVAJTMA7187-23-81 02:01:00 Test Item Value Reference Range Interpretation Comments Potassium Lvl (test code = Potassium 3.7 3.5-5.1 Lvl) [facility] CenterLxoociqWHPTEBUBRYVF5726-36-15 02:01:00 Test Item Value Reference Range Interpretation Comments BUN (test code = BUN) 10 7-22 [facility] CenterGchqaycURDDJUHSQTXD5673-32-14 02:01:00 Test Item Value Reference Range Interpretation Comments Glucose Lvl (test code = Glucose Lvl) 88 70-99 [facility] CenterDyebfteIEOAMKVVKQYN0122-71-22 02:01:00 Test Item Value Reference Range Interpretation Comments Creatinine Lvl (test code = Creatinine 0.76 0.50-1.40 Lvl) [facility] [id number] 02:01:00 Test Item Value Reference Range Interpretation Comments Segs-Bands # (test code = Segs-Bands #) 5.4 1.5-8.1 [facility] CampusWahbmigDKIUTJUOUC4382-02-22 02:01:00 Test Item Value Reference Range Interpretation Comments Basophils (test code = 1.0 See_Comment [Aut omated message] The Basophils) system which ge nerated this result tra nsmitted reference range : <=1.0. The reference r kat was not used to int erpret this result as normal/abnormal . [facility] [id number] 02:01:00 Test Item Value Reference Range Interpretation Comments Monocytes # (test code 0.7 See_Comment [Aut omated message] The = Monocytes #) system which generated this result tra nsmitted reference range : <=0.8. The reference r kat was not used to int erpret this result as normal/abnormal . [facility] CampusSdzzrnqMNUSBVOQEB2853-06-29 02:01:00 Test Item Value Reference Range Interpretation Comments Lymphocytes (test code = Lymphocytes) 35.1 20.0-40.0 [facility] CampusHnjcztgVGLVVIWJXY2443-19-82 02:01:00 Test Item Value Reference Range Interpretation Comments Lymphocytes # (test code = Lymphocytes 3.5 1.0-5.5 #) [facility] CampusWzfwhgmMCKVPGNDWV8261-25-00 02:01:00 Test Item Value Reference Range Interpretation Comments Monocytes (test code = Monocytes) 6.7 2.0-12.0 [facility] CampusXgtvzpaKVQRXNNKTF8620-57-82 02:01:00 Test Item Value Reference Range Interpretation Comments Segs (test code = Segs) 54.8 45.0-75.0 [facility] CampusGvjgookRPAGBJDHWC5445-27-89 02:01:00 Test Item Value Reference Range Interpretation Comments Eosinophils (test code = 2.4 See_Comment [A utomated message] The Eosinophils) system which ge nerated this result tra nsmitted reference range : <=4.0. The reference r kat was not used to int erpret this result as normal/abnormal . [facility] CampusZtopathBGCGAJIKBS9037-79-00 02:01:00 Test Item Value Reference Range Interpretation Comments Basophils # (test code 0.1 See_Comment [Aut omated message] The = Basophils #) system which generated this result tra nsmitted reference range : <=0.2. The reference r kat was not used to int erpret this result as normal/abnormal . [facility] CampusBovpqmkQJARFTFWZE5162-61-22 02:01:00 Test Item Value Reference Range Interpretation Comments Microcyte (test code = 1+ *ABN*(09/17/15 Microcyte) 8:01 PM) [facility] CampusYpdgjeqHFGGKUADSV7942-24-06 02:01:00 Test Item Value Reference Range Interpretation Comments Eosinophils # (test code 0.2 See_Comment [A utomated message] The = Eosinophils #) system whic h generated this result tra nsmitted reference range : <=0.5. The reference r kat was not used to int erpret this result as normal/abnormal . [facility] CampusJhjdptfWKIUGDBXGX1508-75-99 02:01:00 Test Item Value Reference Range Interpretation Comments MPV (test code = MPV) 10.0 7.4-10.4 [facility] CampusIlbshemTTUPHALJIS2882-90-47 02:01:00 Test Item Value Reference Range Interpretation Comments RDW (test code = RDW) 16.9 11.5-14.5 [facility] CampusBghupdkGULMAGQCZS2571-42-80 02:01:00 Test Item Value Reference Range Interpretation Comments Platelet (test code = Platelet) 208 133-450 [facility] CampusPeolcddDIVRLWHZED0272-28-59 02:01:00 Test Item Value Reference Range Interpretation Comments MCV (test code = MCV) 77.9 80.0-98.0 [facility] CampusGokthqjRSCYKWDFQR3039-87-59 02:01:00 Test Item Value Reference Range Interpretation Comments MCH (test code = MCH) 24.2 pg 27.0-31.0 [facility] CampusVmspuygGFQDZIRWUZ3749-12-73 02:01:00 Test Item Value Reference Range Interpretation Comments MCHC (test code = MCHC) 31.1 32.0-36.0 [facility] CampusMgmwfydYYLJJZLPNN2562-67-41 02:01:00 Test Item Value Reference Range Interpretation Comments Hgb (test code = Hgb) 13.3 12.0-16.0 [facility] CampusOmhgjqbGNGJKMHCRU7701-68-87 02:01:00 Test Item Value Reference Range Interpretation Comments Hct (test code = Hct) 42.6 36.0-48.0 [facility] CampusRjhtzehHSENWQAMSY6673-68-65 02:01:00 Test Item Value Reference Range Interpretation Comments WBC (test code = WBC) 9.9 3.7-10.4 [facility] CampusAxzymsfZOHFDONRSC9661-33-03 02:01:00 Test Item Value Reference Range Interpretation Comments RBC (test code = RBC) 5.47 4.20-5.40 [facility]2016-01-20 02:01:00 Test Item Value Reference Range Interpretation Comments Lipase Lvl (test code = Lipase Lvl) 196 73393 [facility]2016-01-20 02:01:00 Test Item Value Reference Range Interpretation Comments Amylase Lvl (test code = Amylase Lvl) 33 25-115 [facility] CenterUufkrtwCXEIUMVJJOJN2300-66-99 02:01:00 Test Item Value Reference Range Interpretation Comments AGAP (test code = AGAP) 10.7 10.0-20.0 [facility] CenterEqmumrrNCTASFHHHXHG0485-43-40 02:01:00 Test Item Value Reference Range Interpretation Comments A/G Ratio (test code = A/G Ratio) 1.2 0.7-1.6 [facility] CenterBakmcldQQRNJIEKYVQS3300-63-52 02:01:00 Test Item Value Reference Range Interpretation Comments Globulin (test code = Globulin) 3.1 2.0-4.0 [facility] CenterEykahuyDUOXYSRWFYXW1408-89-61 02:01:00 Test Item Value Reference Range Interpretation Comments B/C Ratio (test code = B/C Ratio) 13 6-25 [facility] CenterMcldepqHGACOEXYKBXY4878-09-79 02:01:00 Test Item Value Reference Range Interpretation Comments Total Protein (test code = Total 6.9 6.4-8.4 Protein) [facility] CenterLlhbuntASPDREWEQNEC4152-97-43 02:01:00 Test Item Value Reference Range Interpretation Comments Calcium Lvl (test code = Calcium Lvl) 9.0 8.5-10.5 [facility] CenterGnkpyvlBQRLFEEESOLW5187-31-52 02:01:00 Test Item Value Reference Range Interpretation Comments CO2 (test code = CO2) 26 24-32 [facility] CenterDcnqorkGIQUPJKKSAPQ6756-35-12 02:01:00 Test Item Value Reference Range Interpretation Comments eGFR (test code = eGFR) 110 [facility] CenterMjglbuaGGSLAIYMIBQR3385-44-44 02:01:00 Test Item Value Reference Range Interpretation Comments Bili Total (test code = Bili Total) 0.3 0.2-1.3 [facility] CenterStbqripAFOAZQQKFTHL4102-36-08 02:01:00 Test Item Value Reference Range Interpretation Comments Alk Phos (test code = Alk Phos) 84 39-136 [facility] CenterJuuolzxMZMKMLPKPPZK6811-98-41 02:01:00 Test Item Value Reference Range Interpretation Comments AST (test code = AST) 17 See_Comment [Auto mated message] The system which ge nerated this result transmit arvind reference range : <=37. The reference range was not used to interpr et this result as mario l/abnormal. [facility] CenterYjlzeheKJNPZVMRULYW5698-52-22 02:01:00 Test Item Value Reference Range Interpretation Comments ALT (test code = ALT) 42 See_Comment [Auto mated message] The system which ge nerated this result transmit arvind reference range : <=65. The reference range was not used to interpr et this result as mario l/abnormal. [facility] CenterIwsiyneDPTGTTFDDUPC5699-67-52 02:01:00 Test Item Value Reference Range Interpretation Comments Albumin Lvl (test code = Albumin Lvl) 3.8 3.5-5.0 [facility] CenterAkqkrluXJHNXHOPSYEH0695-39-70 02:01:00 Test Item Value Reference Range Interpretation Comments Sodium Lvl (test code = Sodium Lvl) 139 135-145 [facility] CenterRrormvfVIYESHFVEOOU2280-42-93 02:01:00 Test Item Value Reference Range Interpretation Comments Chloride Lvl (test code = Chloride Lvl) 106 95-109 [facility] CenterZpgdbvbMJITPGDZLFCU1971-60-07 02:01:00 Test Item Value Reference Range Interpretation Comments Potassium Lvl (test code = Potassium 3.7 3.5-5.1 Lvl) [facility] CenterQjoshnjLLWQKYSGGFUI4412-64-52 02:01:00 Test Item Value Reference Range Interpretation Comments BUN (test code = BUN) 10 7-22 [facility] CenterFchjuqrKLFJQPCYMTPF9841-96-88 02:01:00 Test Item Value Reference Range Interpretation Comments Glucose Lvl (test code = Glucose Lvl) 88 70-99 [facility] CenterQajynryDTIHCESAELBO3832-76-12 02:01:00 Test Item Value Reference Range Interpretation Comments Creatinine Lvl (test code = Creatinine 0.76 0.50-1.40 Lvl) [facility] CampusDhrfimxJKDVLKUIBP7237-86-42 02:01:00 Test Item Value Reference Range Interpretation Comments Segs-Bands # (test code = Segs-Bands #) 5.4 1.5-8.1 [facility] CampusEcixakuFDDGYNKTVJ0219-79-19 02:01:00 Test Item Value Reference Range Interpretation Comments Basophils (test code = 1.0 See_Comment [Aut omated message] The Basophils) system which ge nerated this result tra nsmitted reference range : <=1.0. The reference r kat was not used to int erpret this result as normal/abnormal . [facility] CampusGxuzealEYAXQJZEBP7779-64-75 02:01:00 Test Item Value Reference Range Interpretation Comments Monocytes # (test code 0.7 See_Comment [Aut omated message] The = Monocytes #) system which generated this result tra nsmitted reference range : <=0.8. The reference r kat was not used to int erpret this result as normal/abnormal . [facility] CampusBfjojlfMTDGBQOXDX4534-14-65 02:01:00 Test Item Value Reference Range Interpretation Comments Lymphocytes (test code = Lymphocytes) 35.1 20.0-40.0 [facility] CampusUtbeannLWAERNUJQA6373-88-43 02:01:00 Test Item Value Reference Range Interpretation Comments Lymphocytes # (test code = Lymphocytes 3.5 1.0-5.5 #) [facility] CampusPoictecVOVGEKLNWT8693-69-02 02:01:00 Test Item Value Reference Range Interpretation Comments Monocytes (test code = Monocytes) 6.7 2.0-12.0 [facility] CampusTsobqqpEVUIVGCQUB6292-22-54 02:01:00 Test Item Value Reference Range Interpretation Comments Segs (test code = Segs) 54.8 45.0-75.0 [facility] CampusXuhvzwrCXGGQUYVJK6698-40-65 02:01:00 Test Item Value Reference Range Interpretation Comments Eosinophils (test code = 2.4 See_Comment [A utomated message] The Eosinophils) system which ge nerated this result tra nsmitted reference range : <=4.0. The reference r kat was not used to int erpret this result as normal/abnormal . [facility] CampusIdqblknBLNJUVPBQI1498-29-93 02:01:00 Test Item Value Reference Range Interpretation Comments Basophils # (test code 0.1 See_Comment [Aut omated message] The = Basophils #) system which generated this result tra nsmitted reference range : <=0.2. The reference r kat was not used to int erpret this result as normal/abnormal . [facility] CampusSblhilbENBDVRRMAN4812-43-34 02:01:00 Test Item Value Reference Range Interpretation Comments Microcyte (test code = 1+ *ABN*(09/17/15 Microcyte) 8:01 PM) [facility] CampusImkwbdhUHUOTIDEHY1913-71-27 02:01:00 Test Item Value Reference Range Interpretation Comments Eosinophils # (test code 0.2 See_Comment [A utomated message] The = Eosinophils #) system whic h generated this result tra nsmitted reference range : <=0.5. The reference r kat was not used to int erpret this result as normal/abnormal . [facility] CampusItwnrteMBUBQDCXDT7597-95-53 02:01:00 Test Item Value Reference Range Interpretation Comments MPV (test code = MPV) 10.0 7.4-10.4 [facility] CampusFqtzptlFBJGSCWVAO0530-04-31 02:01:00 Test Item Value Reference Range Interpretation Comments RDW (test code = RDW) 16.9 11.5-14.5 [facility] CampusFvaaonuWWRNZVNJMF2590-09-86 02:01:00 Test Item Value Reference Range Interpretation Comments Platelet (test code = Platelet) 208 133-450 [facility] CampusIgkgkpuRGNCEZKWWP7247-92-32 02:01:00 Test Item Value Reference Range Interpretation Comments MCV (test code = MCV) 77.9 80.0-98.0 [facility] CampusDlwnrpsXNKHRNDEBS9539-21-42 02:01:00 Test Item Value Reference Range Interpretation Comments MCH (test code = MCH) 24.2 pg 27.0-31.0 [facility] CampusGedfnxmTFPWQEKBEI9985-93-25 02:01:00 Test Item Value Reference Range Interpretation Comments MCHC (test code = MCHC) 31.1 32.0-36.0 [facility] CampusLkrcabtJJAWAPKKRY5594-99-20 02:01:00 Test Item Value Reference Range Interpretation Comments Hgb (test code = Hgb) 13.3 12.0-16.0 [facility] CampusBqaykhmNRFLNASTHF3009-74-11 02:01:00 Test Item Value Reference Range Interpretation Comments Hct (test code = Hct) 42.6 36.0-48.0 [facility] CampusCdiyncvKHFDXGXNMB1741-37-16 02:01:00 Test Item Value Reference Range Interpretation Comments WBC (test code = WBC) 9.9 3.7-10.4 [facility] CampusHejgvtiUFRTGXOOKY0063-24-84 02:01:00 Test Item Value Reference Range Interpretation Comments RBC (test code = RBC) 5.47 4.20-5.40 [facility]2016-01-20 02:01:00 Test Item Value Reference Range Interpretation Comments Lipase Lvl (test code = Lipase Lvl) 196 [address]93 [facility]2016-01-20 02:01:00 Test Item Value Reference Range Interpretation Comments Amylase Lvl (test code = Amylase Lvl) 33 25-115 [facility] CenterHxoyrquHKONKOIVIXCM2134-06-69 02:01:00 Test Item Value Reference Range Interpretation Comments AGAP (test code = AGAP) 10.7 10.0-20.0 [facility] CenterUknprvrZYEDZNERXGKC6165-38-93 02:01:00 Test Item Value Reference Range Interpretation Comments A/G Ratio (test code = A/G Ratio) 1.2 0.7-1.6 [facility] CenterMybeondGKYSKIKUGJWA8517-04-02 02:01:00 Test Item Value Reference Range Interpretation Comments Globulin (test code = Globulin) 3.1 2.0-4.0 [facility] CenterEbqbocoHTCGXFTJXMDP3690-85-27 02:01:00 Test Item Value Reference Range Interpretation Comments B/C Ratio (test code = B/C Ratio) 13 6-25 [facility] CenterFrqddeiCYYZMLYXEFXU0464-19-12 02:01:00 Test Item Value Reference Range Interpretation Comments Total Protein (test code = Total 6.9 6.4-8.4 Protein) [facility] CenterHvbktqcEIIKHGNYVJQQ1098-72-94 02:01:00 Test Item Value Reference Range Interpretation Comments Calcium Lvl (test code = Calcium Lvl) 9.0 8.5-10.5 [facility] CenterKnoeqsyXHJAYKCAYRKW0148-67-99 02:01:00 Test Item Value Reference Range Interpretation Comments CO2 (test code = CO2) 26 24-32 [facility] CenterOtcfwdaRCRJAMUIBLTH8332-86-52 02:01:00 Test Item Value Reference Range Interpretation Comments eGFR (test code = eGFR) 110 [facility] CenterBfxwiceMUEIFKJTKUUS4222-84-98 02:01:00 Test Item Value Reference Range Interpretation Comments Bili Total (test code = Bili Total) 0.3 0.2-1.3 [facility] CenterNhpfgsdQJHQHWVFDOWE8284-35-83 02:01:00 Test Item Value Reference Range Interpretation Comments Alk Phos (test code = Alk Phos) 84 39-136 [facility] CenterBdoyjxgUZSKULSIXBHY6666-92-08 02:01:00 Test Item Value Reference Range Interpretation Comments AST (test code = AST) 17 See_Comment [Auto mated message] The system which ge nerated this result transmit arvind reference range : <=37. The reference range was not used to interpr et this result as mario l/abnormal. [facility] CenterNxzysaoEXSOCHBMWEBI2048-67-03 02:01:00 Test Item Value Reference Range Interpretation Comments ALT (test code = ALT) 42 See_Comment [Auto mated message] The system which ge nerated this result transmit arvind reference range : <=65. The reference range was not used to interpr et this result as mario l/abnormal. [facility] CenterGqhtqbpWNGSUEGGIGYA8110-68-31 02:01:00 Test Item Value Reference Range Interpretation Comments Albumin Lvl (test code = Albumin Lvl) 3.8 3.5-5.0 [facility] CenterOairzxmOZQKUDPQJDIK5472-30-37 02:01:00 Test Item Value Reference Range Interpretation Comments Sodium Lvl (test code = Sodium Lvl) 139 135-145 [facility] CenterBhnmwsrOGUYTKSWRPXE2980-38-49 02:01:00 Test Item Value Reference Range Interpretation Comments Chloride Lvl (test code = Chloride Lvl) 106 95-109 [facility] CenterFtdazyyLWJLAHVTQGBZ5546-87-82 02:01:00 Test Item Value Reference Range Interpretation Comments Potassium Lvl (test code = Potassium 3.7 3.5-5.1 Lvl) [facility] CenterKvdxqpxIRXDCJSHWECA5068-46-49 02:01:00 Test Item Value Reference Range Interpretation Comments BUN (test code = BUN) 10 7-22 [facility] CenterEnvvgihMSJGCRTCVGHA9722-16-17 02:01:00 Test Item Value Reference Range Interpretation Comments Glucose Lvl (test code = Glucose Lvl) 88 70-99 [facility] CenterFtbrpwzLZAIAMTCCAJO3119-63-23 02:01:00 Test Item Value Reference Range Interpretation Comments Creatinine Lvl (test code = Creatinine 0.76 0.50-1.40 Lvl) [facility] CampusAlanfhbSXBORASUMV6077-52-09 02:01:00 Test Item Value Reference Range Interpretation Comments Segs-Bands # (test code = Segs-Bands #) 5.4 1.5-8.1 [facility] CampusZkeihmbEQCFSUTHME5693-22-07 02:01:00 Test Item Value Reference Range Interpretation Comments Basophils (test code = 1.0 See_Comment [Aut omated message] The Basophils) system which ge nerated this result tra nsmitted reference range : <=1.0. The reference r kta was not used to int erpret this result as normal/abnormal . [facility] CampusJwrnozfDFDJQHQKAB1915-91-87 02:01:00 Test Item Value Reference Range Interpretation Comments Monocytes # (test code 0.7 See_Comment [Aut omated message] The = Monocytes #) system which generated this result tra nsmitted reference range : <=0.8. The reference r kat was not used to int erpret this result as normal/abnormal . [facility] CampusEheaybtMZTGAQASUB5939-96-27 02:01:00 Test Item Value Reference Range Interpretation Comments Lymphocytes (test code = Lymphocytes) 35.1 20.0-40.0 [facility] CampusEubpetdIFHATQDWDG5125-44-39 02:01:00 Test Item Value Reference Range Interpretation Comments Lymphocytes # (test code = Lymphocytes 3.5 1.0-5.5 #) [facility] CampusEnjjrmhGFPOAOQKSH8760-63-81 02:01:00 Test Item Value Reference Range Interpretation Comments Monocytes (test code = Monocytes) 6.7 2.0-12.0 [facility] CampusVigvthiJVJGWTWBSN7869-83-59 02:01:00 Test Item Value Reference Range Interpretation Comments Segs (test code = Segs) 54.8 45.0-75.0 [facility] CampusUftvwwhPFDTZTJKBD3503-00-41 02:01:00 Test Item Value Reference Range Interpretation Comments Eosinophils (test code = 2.4 See_Comment [A utomated message] The Eosinophils) system which ge nerated this result tra nsmitted reference range : <=4.0. The reference r kat was not used to int erpret this result as normal/abnormal . [facility] CampusLfbjudeBHSGVAWJWU7918-36-66 02:01:00 Test Item Value Reference Range Interpretation Comments Basophils # (test code 0.1 See_Comment [Aut omated message] The = Basophils #) system which generated this result tra nsmitted reference range : <=0.2. The reference r kat was not used to int erpret this result as normal/abnormal . [facility] CampusKolnytwUHVBYXZEOO3760-30-85 02:01:00 Test Item Value Reference Range Interpretation Comments Microcyte (test code = 1+ *ABN*(09/17/15 Microcyte) 8:01 PM) [facility] CampusShzqwmlOAQXMTYJHJ8298-56-01 02:01:00 Test Item Value Reference Range Interpretation Comments Eosinophils # (test code 0.2 See_Comment [A utomated message] The = Eosinophils #) system whic h generated this result tra nsmitted reference range : <=0.5. The reference r kat was not used to int erpret this result as normal/abnormal . [facility] CampusDdujbvtUQOFVTGTXM2338-92-06 02:01:00 Test Item Value Reference Range Interpretation Comments MPV (test code = MPV) 10.0 7.4-10.4 [facility] CampusIxfmmlkINCVJIMFOT7483-06-13 02:01:00 Test Item Value Reference Range Interpretation Comments RDW (test code = RDW) 16.9 11.5-14.5 [facility] CampusSvefvplDCJFOSJTIU5472-14-23 02:01:00 Test Item Value Reference Range Interpretation Comments Platelet (test code = Platelet) 208 133-450 [facility] CampusZsyrfzvKLPJYCYYRU9531-11-02 02:01:00 Test Item Value Reference Range Interpretation Comments MCV (test code = MCV) 77.9 80.0-98.0 [facility] CampusDgvtiuqRVDCGVDXKN3866-87-56 02:01:00 Test Item Value Reference Range Interpretation Comments MCH (test code = MCH) 24.2 pg 27.0-31.0 [facility] CampusZetcxbdQXSHPESUEH6584-40-24 02:01:00 Test Item Value Reference Range Interpretation Comments MCHC (test code = MCHC) 31.1 32.0-36.0 [facility] CampusWblqsazPWQFXTMEIJ4262-59-16 02:01:00 Test Item Value Reference Range Interpretation Comments Hgb (test code = Hgb) 13.3 12.0-16.0 [facility] CampusBfsjfqhTFTKCEQWSD7909-11-42 02:01:00 Test Item Value Reference Range Interpretation Comments Hct (test code = Hct) 42.6 36.0-48.0 [facility] CampusDnvqddwMKTEFJOBUH6178-80-44 02:01:00 Test Item Value Reference Range Interpretation Comments WBC (test code = WBC) 9.9 3.7-10.4 [place] 755856-01-20 02:01:00 Test Item Value Reference Range Interpretation Comments RBC (test code = RBC) 5.47 4.20-5.40 [facility]2015-12-28 16:57:00 Test Item Value Reference Range Interpretation Comments eGFR (test code = eGFR) 86 [facility]2015-12-28 16:57:00 Test Item Value Reference Range Interpretation Comments Potassium Lvl (test code = Potassium 3.6 3.5-5.1 Lvl) [facility]2015-12-28 16:57:00 Test Item Value Reference Range Interpretation Comments CO2 (test code = CO2) 27 24-32 [facility]2015-12-28 16:57:00 Test Item Value Reference Range Interpretation Comments Chloride Lvl (test code = Chloride Lvl) 103 95-109 [facility]2015-12-28 16:57:00 Test Item Value Reference Range Interpretation Comments Calcium Lvl (test code = Calcium Lvl) 9.4 8.5-10.5 [facility]2015-12-28 16:57:00 Test Item Value Reference Range Interpretation Comments AST (test code = AST) 16 See_Comment [Auto mated message] The system which ge nerated this result transmit arvind reference range : <=37. The reference range was not used to interpr et this result as mario l/abnormal. [facility]2015-12-28 16:57:00 Test Item Value Reference Range Interpretation Comments ALT (test code = ALT) 43 See_Comment [Auto mated message] The system which ge nerated this result transmit arvind reference range : <=65. The reference range was not used to interpr et this result as mario l/abnormal. [address]12-28 16:57:00 Test Item Value Reference Range Interpretation Comments Alk Phos (test code = Alk Phos) 97 39-136 [facility]2015-12-28 16:57:00 Test Item Value Reference Range Interpretation Comments Albumin Lvl (test code = Albumin Lvl) 3.6 3.5-5.0 [facility]2015-12-28 16:57:00 Test Item Value Reference Range Interpretation Comments Total Protein (test code = Total 7.3 6.4-8.4 Protein) [facility]2015-12-28 16:57:00 Test Item Value Reference Range Interpretation Comments Bili Total (test code = Bili Total) 0.4 0.2-1.3 [facility]2015-12-28 16:57:00 Test Item Value Reference Range Interpretation Comments Glucose Lvl (test code = Glucose Lvl) 95 70-99 [facility]2015-12-28 16:57:00 Test Item Value Reference Range Interpretation Comments Creatinine Lvl (test code = Creatinine 0.93 0.50-1.40 Lvl) [facility]2015-12-28 16:57:00 Test Item Value Reference Range Interpretation Comments BUN (test code = BUN) 9 7-22 [facility]2015-12-28 16:57:00 Test Item Value Reference Range Interpretation Comments Sodium Lvl (test code = Sodium Lvl) 139 135-145 [facility]2015-12-28 16:57:00 Test Item Value Reference Range Interpretation Comments A/G Ratio (test code = A/G Ratio) 1.0 0.7-1.6 [facility]2015-12-28 16:57:00 Test Item Value Reference Range Interpretation Comments Globulin (test code = Globulin) 3.7 2.0-4.0 [facility]2015-12-28 16:57:00 Test Item Value Reference Range Interpretation Comments B/C Ratio (test code = B/C Ratio) 10 6-25 [facility]2015-12-28 16:57:00 Test Item Value Reference Range Interpretation Comments AGAP (test code = AGAP) 12.6 10.0-20.0 [facility]DihgdhfSKYTBIPNTXVFL8193-52-50 16:57:00 Test Item Value Reference Range Interpretation Comments S Preg (test code = S Negative *NA*(08/26/15 Preg) 10:57 AM) [facility] CampusKntahyzDEZDHYWBBB6983-76-29 16:57:00 Test Item Value Reference Range Interpretation Comments Eosinophils # (test code 0.4 See_Comment [A utomated message] The = Eosinophils #) system whic h generated this result tra nsmitted reference range : <=0.5. The reference r kat was not used to int erpret this result as normal/abnormal . [facility] CampusZnpdlpvSJRJIRYKNK9765-38-58 16:57:00 Test Item Value Reference Range Interpretation Comments Microcyte (test code = 1+ *ABN*(08/26/15 Microcyte) 10:57 AM) [facility] CampusEpdvvthEUOGVWRWNZ8911-11-77 16:57:00 Test Item Value Reference Range Interpretation Comments Basophils # (test code 0.1 See_Comment [Aut omated message] The = Basophils #) system which generated this result tra nsmitted reference range : <=0.2. The reference r kat was not used to int erpret this result as normal/abnormal . [facility] CampusZueluorOITWEXQVOX4469-83-96 16:57:00 Test Item Value Reference Range Interpretation Comments Monocytes (test code = Monocytes) 8.6 2.0-12.0 [facility] CampusVvurozfMIFJYPXCZD4571-03-44 16:57:00 Test Item Value Reference Range Interpretation Comments Lymphocytes (test code = Lymphocytes) 40.6 20.0-40.0 [facility] CampusXfkunbeOWTHWRAZZA6108-68-93 16:57:00 Test Item Value Reference Range Interpretation Comments Eosinophils (test code = 5.0 See_Comment [A utomated message] The Eosinophils) system which ge nerated this result tra nsmitted reference range : <=4.0. The reference r kat was not used to int erpret this result as normal/abnormal . [facility] CampusWsiqdteJFLSEJVHJO8468-26-18 16:57:00 Test Item Value Reference Range Interpretation Comments Segs (test code = Segs) 44.8 45.0-75.0 [facility] CampusAfhzwyvHIWLYLSPCP1728-89-09 16:57:00 Test Item Value Reference Range Interpretation Comments Basophils (test code = 1.0 See_Comment [Aut omated message] The Basophils) system which ge nerated this result tra nsmitted reference range : <=1.0. The reference r kat was not used to int erpret this result as normal/abnormal . [facility] CampusDdvnkyxSEWHIFUFQB4864-94-34 16:57:00 Test Item Value Reference Range Interpretation Comments Segs-Bands # (test code = Segs-Bands #) 3.3 1.5-8.1 [facility] CampusUeejlryASXVIAVPJV4646-65-15 16:57:00 Test Item Value Reference Range Interpretation Comments Monocytes # (test code 0.6 See_Comment [Aut omated message] The = Monocytes #) system which generated this result tra nsmitted reference range : <=0.8. The reference r kat was not used to int erpret this result as normal/abnormal . [facility] CampusScogsocQEGKRCQBNL5643-49-20 16:57:00 Test Item Value Reference Range Interpretation Comments Lymphocytes # (test code = Lymphocytes 3.0 1.0-5.5 #) [facility] CampusXyoblsxWSHMWHUTFY0792-25-34 16:57:00 Test Item Value Reference Range Interpretation Comments PT (test code = PT) 14.0 s 12.0-14.7 [facility] CampusRxrfieuBFLCFHRUIG9708-58-59 16:57:00 Test Item Value Reference Range Interpretation Comments INR (test code = INR) 1.05 0.85-1.17 [facility] CampusLqbrmwqLBTQGRDLBZ0331-90-01 16:57:00 Test Item Value Reference Range Interpretation Comments PTT (test code = PTT) 30.3 s 22.9-35.8 [facility] CampusWczwduvBRMVYTTRAY1171-52-01 16:57:00 Test Item Value Reference Range Interpretation Comments MPV (test code = MPV) 8.9 7.4-10.4 [facility] CampusZzabccgRHUXBXTFVO3295-61-98 16:57:00 Test Item Value Reference Range Interpretation Comments RDW (test code = RDW) 15.8 11.5-14.5 [facility] CampusWxhowauUOVHRMRVWH7752-54-21 16:57:00 Test Item Value Reference Range Interpretation Comments Platelet (test code = Platelet) 271 133-450 [facility] CampusEilobiiJXNZKBLUPE4620-19-23 16:57:00 Test Item Value Reference Range Interpretation Comments WBC (test code = WBC) 7.3 3.7-10.4 [facility] CampusBzeuxprGEFYBHHHUA5234-14-09 16:57:00 Test Item Value Reference Range Interpretation Comments RBC (test code = RBC) 5.14 4.20-5.40 [facility] CampusRytvtpvCQQGTXPFCN4675-20-44 16:57:00 Test Item Value Reference Range Interpretation Comments MCV (test code = MCV) 77.9 80.0-98.0 [facility] CampusOiylfwpVFUNWQZRBW7908-60-76 16:57:00 Test Item Value Reference Range Interpretation Comments MCH (test code = MCH) 23.9 pg 27.0-31.0 [facility] CampusFovncgvVFMKOZSCEJ4568-58-98 16:57:00 Test Item Value Reference Range Interpretation Comments MCHC (test code = MCHC) 30.7 32.0-36.0 [facility] CampusHsnrlgpOPMOZWBOCZ0206-18-42 16:57:00 Test Item Value Reference Range Interpretation Comments Hct (test code = Hct) 40.1 36.0-48.0 [facility] CampusUjbkadoNDZKNDHKUT9868-92-08 16:57:00 Test Item Value Reference Range Interpretation Comments Hgb (test code = Hgb) 12.3 12.0-16.0 [facility]2015-12-28 16:57:00 Test Item Value Reference Range Interpretation Comments eGFR (test code = eGFR) 86 [facility]2015-12-28 16:57:00 Test Item Value Reference Range Interpretation Comments Potassium Lvl (test code = Potassium 3.6 3.5-5.1 Lvl) [facility]2015-12-28 16:57:00 Test Item Value Reference Range Interpretation Comments CO2 (test code = CO2) 27 24-32 [facility]2015-12-28 16:57:00 Test Item Value Reference Range Interpretation Comments Chloride Lvl (test code = Chloride Lvl) 103 95-109 [facility]2015-12-28 16:57:00 Test Item Value Reference Range Interpretation Comments Calcium Lvl (test code = Calcium Lvl) 9.4 8.5-10.5 [facility]2015-12-28 16:57:00 Test Item Value Reference Range Interpretation Comments AST (test code = AST) 16 See_Comment [Auto mated message] The system which ge nerated this result transmit arvind reference range : <=37. The reference range was not used to interpr et this result as mario l/abnormal. [facility]2015-12-28 16:57:00 Test Item Value Reference Range Interpretation Comments ALT (test code = ALT) 43 See_Comment [Auto mated message] The system which ge nerated this result transmit arvind reference range : <=65. The reference range was not used to interpr et this result as mario l/abnormal. [facility]2015-12-28 16:57:00 Test Item Value Reference Range Interpretation Comments Alk Phos (test code = Alk Phos) 97 39-136 [facility]2015-12-28 16:57:00 Test Item Value Reference Range Interpretation Comments Albumin Lvl (test code = Albumin Lvl) 3.6 3.5-5.0 [facility]2015-12-28 16:57:00 Test Item Value Reference Range Interpretation Comments Total Protein (test code = Total 7.3 6.4-8.4 Protein) [facility]2015-12-28 16:57:00 Test Item Value Reference Range Interpretation Comments Bili Total (test code = Bili Total) 0.4 0.2-1.3 [facility]2015-12-28 16:57:00 Test Item Value Reference Range Interpretation Comments Glucose Lvl (test code = Glucose Lvl) 95 70-99 [facility]2015-12-28 16:57:00 Test Item Value Reference Range Interpretation Comments Creatinine Lvl (test code = Creatinine 0.93 0.50-1.40 Lvl) [facility]2015-12-28 16:57:00 Test Item Value Reference Range Interpretation Comments BUN (test code = BUN) 9 7-22 [facility]2015-12-28 16:57:00 Test Item Value Reference Range Interpretation Comments Sodium Lvl (test code = Sodium Lvl) 139 135-145 [facility]2015-12-28 16:57:00 Test Item Value Reference Range Interpretation Comments A/G Ratio (test code = A/G Ratio) 1.0 0.7-1.6 [facility]2015-12-28 16:57:00 Test Item Value Reference Range Interpretation Comments Globulin (test code = Globulin) 3.7 2.0-4.0 [facility]2015-12-28 16:57:00 Test Item Value Reference Range Interpretation Comments B/C Ratio (test code = B/C Ratio) 10 6-25 [facility] [id number] 16:57:00 Test Item Value Reference Range Interpretation Comments AGAP (test code = AGAP) 12.6 10.0-20.0 [facility] CenterBmloqizHBYROSYKAUUOR7575-98-89 16:57:00 Test Item Value Reference Range Interpretation Comments S Preg (test code = S Negative *NA*(08/26/15 Preg) 10:57 AM) [facility] CampusQsbdiuqEFUJCDWEYI0852-25-95 16:57:00 Test Item Value Reference Range Interpretation Comments Eosinophils # (test code 0.4 See_Comment [A utomated message] The = Eosinophils #) system whic h generated this result tra nsmitted reference range : <=0.5. The reference r kat was not used to int erpret this result as normal/abnormal . [facility] CampusAwpeuipUYRGXSOFXT0211-85-44 16:57:00 Test Item Value Reference Range Interpretation Comments Microcyte (test code = 1+ *ABN*(08/26/15 Microcyte) 10:57 AM) [facility] CampusDaugkhmGODNFVOKDR4382-81-92 16:57:00 Test Item Value Reference Range Interpretation Comments Basophils # (test code 0.1 See_Comment [Aut omated message] The = Basophils #) system which generated this result tra nsmitted reference range : <=0.2. The reference r kat was not used to int erpret this result as normal/abnormal . [facility] CampusOijpabbDZMXNFSTUE9025-21-77 16:57:00 Test Item Value Reference Range Interpretation Comments Monocytes (test code = Monocytes) 8.6 2.0-12.0 [facility] CampusPdjoamiUUVCFBPAKD4707-54-78 16:57:00 Test Item Value Reference Range Interpretation Comments Lymphocytes (test code = Lymphocytes) 40.6 20.0-40.0 [facility] CampusQgofmgaGDZIEQGGDC7978-14-45 16:57:00 Test Item Value Reference Range Interpretation Comments Eosinophils (test code = 5.0 See_Comment [A utomated message] The Eosinophils) system which ge nerated this result tra nsmitted reference range : <=4.0. The reference r kat was not used to int erpret this result as normal/abnormal . [facility] CampusKmpvntaHMQNBAFFZQ1189-21-77 16:57:00 Test Item Value Reference Range Interpretation Comments Segs (test code = Segs) 44.8 45.0-75.0 [facility] CampusNyyhzdmNOLFYGSXBB0895-30-60 16:57:00 Test Item Value Reference Range Interpretation Comments Basophils (test code = 1.0 See_Comment [Aut omated message] The Basophils) system which ge nerated this result tra nsmitted reference range : <=1.0. The reference r kat was not used to int erpret this result as normal/abnormal . [facility] CampusLdxjnyyTGPNUJIDYD1499-91-27 16:57:00 Test Item Value Reference Range Interpretation Comments Segs-Bands # (test code = Segs-Bands #) 3.3 1.5-8.1 [facility] CampusVqvfyycCXVXDDDAKK6730-55-55 16:57:00 Test Item Value Reference Range Interpretation Comments Monocytes # (test code 0.6 See_Comment [Aut omated message] The = Monocytes #) system which generated this result tra nsmitted reference range : <=0.8. The reference r kat was not used to int erpret this result as normal/abnormal . [facility] CampusOavvxdxVXVXCGOUSF8642-81-73 16:57:00 Test Item Value Reference Range Interpretation Comments Lymphocytes # (test code = Lymphocytes 3.0 1.0-5.5 #) [facility] CampusDmsuatoOGHFQJFMZD3801-57-43 16:57:00 Test Item Value Reference Range Interpretation Comments PT (test code = PT) 14.0 s 12.0-14.7 [facility] CampusQxmnpniCADYXGMJCN7126-29-05 16:57:00 Test Item Value Reference Range Interpretation Comments INR (test code = INR) 1.05 0.85-1.17 [facility] CampusRsxmjgfCEILCLPVYQ0050-02-29 16:57:00 Test Item Value Reference Range Interpretation Comments PTT (test code = PTT) 30.3 s 22.9-35.8 [facility] CampusFabxpvbFDFUGSCIYL0274-78-63 16:57:00 Test Item Value Reference Range Interpretation Comments MPV (test code = MPV) 8.9 7.4-10.4 [facility] CampusAtahiqxLILFSXIQXD7530-46-40 16:57:00 Test Item Value Reference Range Interpretation Comments RDW (test code = RDW) 15.8 11.5-14.5 [facility] CampusZmjtxdmBMYWBBFOQH8314-18-96 16:57:00 Test Item Value Reference Range Interpretation Comments Platelet (test code = Platelet) 271 133-450 [facility] CampusScdakrqQSALBWCZCN5789-02-02 16:57:00 Test Item Value Reference Range Interpretation Comments WBC (test code = WBC) 7.3 3.7-10.4 [facility] CampusQpjrvecOOJGSAHMIF5897-98-89 16:57:00 Test Item Value Reference Range Interpretation Comments RBC (test code = RBC) 5.14 4.20-5.40 [facility] CampusUebcvmwEAQYENXIAH2847-59-19 16:57:00 Test Item Value Reference Range Interpretation Comments MCV (test code = MCV) 77.9 80.0-98.0 [facility] CampusHycelcxFWVFNQSUSC2561-83-68 16:57:00 Test Item Value Reference Range Interpretation Comments MCH (test code = MCH) 23.9 pg 27.0-31.0 [facility] CampusJgtxnvdUDRBYRYRDH6578-92-38 16:57:00 Test Item Value Reference Range Interpretation Comments MCHC (test code = MCHC) 30.7 32.0-36.0 [facility] CampusDgroimlJIZDXZZQEZ3222-03-52 16:57:00 Test Item Value Reference Range Interpretation Comments Hct (test code = Hct) 40.1 36.0-48.0 [facility] CampusPonownoZBTDAFCDJI9777-42-19 16:57:00 Test Item Value Reference Range Interpretation Comments Hgb (test code = Hgb) 12.3 12.0-16.0 [facility]2015-12-28 16:57:00 Test Item Value Reference Range Interpretation Comments eGFR (test code = eGFR) 86 [facility]2015-12-28 16:57:00 Test Item Value Reference Range Interpretation Comments Potassium Lvl (test code = Potassium 3.6 3.5-5.1 Lvl) [facility]2015-12-28 16:57:00 Test Item Value Reference Range Interpretation Comments CO2 (test code = CO2) 27 24-32 [facility]2015-12-28 16:57:00 Test Item Value Reference Range Interpretation Comments Chloride Lvl (test code = Chloride Lvl) 103 95-109 [facility]2015-12-28 16:57:00 Test Item Value Reference Range Interpretation Comments Calcium Lvl (test code = Calcium Lvl) 9.4 8.5-10.5 [place] 478265-12-28 16:57:00 Test Item Value Reference Range Interpretation Comments AST (test code = AST) 16 See_Comment [Auto mated message] The system which ge nerated this result transmit arvind reference range : <=37. The reference range was not used to interpr et this result as mario l/abnormal. [facility]2015-12-28 16:57:00 Test Item Value Reference Range Interpretation Comments ALT (test code = ALT) 43 See_Comment [Auto mated message] The system which ge nerated this result transmit arvind reference range : <=65. The reference range was not used to interpr et this result as mario l/abnormal. [place] 478265-12-28 16:57:00 Test Item Value Reference Range Interpretation Comments Alk Phos (test code = Alk Phos) 97 39-136 [facility]2015-12-28 16:57:00 Test Item Value Reference Range Interpretation Comments Albumin Lvl (test code = Albumin Lvl) 3.6 3.5-5.0 [facility]2015-12-28 16:57:00 Test Item Value Reference Range Interpretation Comments Total Protein (test code = Total 7.3 6.4-8.4 Protein) [facility]2015-12-28 16:57:00 Test Item Value Reference Range Interpretation Comments Bili Total (test code = Bili Total) 0.4 0.2-1.3 [facility]2015-12-28 16:57:00 Test Item Value Reference Range Interpretation Comments Glucose Lvl (test code = Glucose Lvl) 95 70-99 [facility]2015-12-28 16:57:00 Test Item Value Reference Range Interpretation Comments Creatinine Lvl (test code = Creatinine 0.93 0.50-1.40 Lvl) [facility]2015-12-28 16:57:00 Test Item Value Reference Range Interpretation Comments BUN (test code = BUN) 9 7-22 [facility]2015-12-28 16:57:00 Test Item Value Reference Range Interpretation Comments Sodium Lvl (test code = Sodium Lvl) 139 135-145 [facility]2015-12-28 16:57:00 Test Item Value Reference Range Interpretation Comments A/G Ratio (test code = A/G Ratio) 1.0 0.7-1.6 [facility]2015-12-28 16:57:00 Test Item Value Reference Range Interpretation Comments Globulin (test code = Globulin) 3.7 2.0-4.0 [facility]2015-12-28 16:57:00 Test Item Value Reference Range Interpretation Comments B/C Ratio (test code = B/C Ratio) 10 6-25 [facility]2015-12-28 16:57:00 Test Item Value Reference Range Interpretation Comments AGAP (test code = AGAP) 12.6 10.0-20.[address] [facility]HqhrnsgJQTPDRNYFPPWW9244-78-77 16:57:00 Test Item Value Reference Range Interpretation Comments S Preg (test code = S Negative *NA*(08/26/15 Preg) 10:57 AM) [facility] CampusXbxzdtgNKFSSDDXJZ3332-67-83 16:57:00 Test Item Value Reference Range Interpretation Comments Eosinophils # (test code 0.4 See_Comment [A utomated message] The = Eosinophils #) system wh h generated this result tra nsmitted reference range : <=0.5. The reference r kat was not used to int erpret this result as normal/abnormal . [facility] CampusHtfacrgOLZUBEJPFE6842-18-05 16:57:00 Test Item Value Reference Range Interpretation Comments Microcyte (test code = 1+ *ABN*(08/26/15 Microcyte) 10:57 AM) [facility] CampusYaisohqNLFVETYQVJ1594-43-18 16:57:00 Test Item Value Reference Range Interpretation Comments Basophils # (test code 0.1 See_Comment [Aut omated message] The = Basophils #) system which generated this result tra nsmitted reference range : <=0.2. The reference r kat was not used to int erpret this result as normal/abnormal . [facility] CampusWdxmmofOELXKYTTTP5053-61-73 16:57:00 Test Item Value Reference Range Interpretation Comments Monocytes (test code = Monocytes) 8.6 2.0-12.0 [facility] CampusTsmuikdLEQMYAJERG8255-78-71 16:57:00 Test Item Value Reference Range Interpretation Comments Lymphocytes (test code = Lymphocytes) 40.6 20.0-40.0 [facility] CampusXzmptvuKAXBEUNTAH0553-83-68 16:57:00 Test Item Value Reference Range Interpretation Comments Eosinophils (test code = 5.0 See_Comment [A utomated message] The Eosinophils) system which ge nerated this result tra nsmitted reference range : <=4.0. The reference r kat was not used to int erpret this result as normal/abnormal . [facility] CampusSnbcossKPTEEIINNL3956-77-54 16:57:00 Test Item Value Reference Range Interpretation Comments Segs (test code = Segs) 44.8 45.0-75.0 [facility] CampusMdlifbpKUORWWYRXF6089-18-39 16:57:00 Test Item Value Reference Range Interpretation Comments Basophils (test code = 1.0 See_Comment [Aut omated message] The Basophils) system which ge nerated this result tra nsmitted reference range : <=1.0. The reference r kat was not used to int erpret this result as normal/abnormal . [facility] CampusHctcnelGRGVJJLLKI3151-81-22 16:57:00 Test Item Value Reference Range Interpretation Comments Segs-Bands # (test code = Segs-Bands #) 3.3 1.5-8.1 [facility] CampusJougwloOAUHHGGSTJ1092-75-59 16:57:00 Test Item Value Reference Range Interpretation Comments Monocytes # (test code 0.6 See_Comment [Aut omated message] The = Monocytes #) system which generated this result tra nsmitted reference range : <=0.8. The reference r kat was not used to int erpret this result as normal/abnormal . [facility] CampusOjhsxirMGHIOUEFZH5892-53-38 16:57:00 Test Item Value Reference Range Interpretation Comments Lymphocytes # (test code = Lymphocytes 3.0 1.0-5.5 #) [facility] CampusDoutjjxPHSAGBGRXH4989-86-73 16:57:00 Test Item Value Reference Range Interpretation Comments PT (test code = PT) 14.0 s 12.0-14.7 [facility] CampusEmharlkSRCJFFYKBF6906-79-88 16:57:00 Test Item Value Reference Range Interpretation Comments INR (test code = INR) 1.05 0.85-1.17 [facility] CampusWoufhxdYIGLZMPZCV5093-48-18 16:57:00 Test Item Value Reference Range Interpretation Comments PTT (test code = PTT) 30.3 s 22.9-35.8 [facility] CampusKrjsormKHVIQPSPHT7703-29-97 16:57:00 Test Item Value Reference Range Interpretation Comments MPV (test code = MPV) 8.9 7.4-10.4 [facility] CampusNndxmxuDBGKSQQUEA8322-62-22 16:57:00 Test Item Value Reference Range Interpretation Comments RDW (test code = RDW) 15.8 11.5-14.5 [facility] CampusRjhhgydYMJOKLTTJE3685-95-85 16:57:00 Test Item Value Reference Range Interpretation Comments Platelet (test code = Platelet) 271 133-450 [facility] CampusTjesugeCHELOTCHRV3484-88-64 16:57:00 Test Item Value Reference Range Interpretation Comments WBC (test code = WBC) 7.3 3.7-10.4 [facility] CampusCoiwwqcKRTAKMYBJP6359-49-96 16:57:00 Test Item Value Reference Range Interpretation Comments RBC (test code = RBC) 5.14 4.20-5.40 [facility] CampusQtpiiywEKTBLTCGIH1884-88-46 16:57:00 Test Item Value Reference Range Interpretation Comments MCV (test code = MCV) 77.9 80.0-98.0 [facility] CampusKnsgeaoQPFYWATUOV4462-47-97 16:57:00 Test Item Value Reference Range Interpretation Comments MCH (test code = MCH) 23.9 pg 27.0-31.0 [facility] CampusYiwinvtZONTPONIRL2020-46-67 16:57:00 Test Item Value Reference Range Interpretation Comments MCHC (test code = MCHC) 30.7 32.0-36.0 [facility] CampusKmfehvbHYWWLZXQVM8803-51-13 16:57:00 Test Item Value Reference Range Interpretation Comments Hct (test code = Hct) 40.1 36.0-48.0 [facility] CampusDolrwqcNEZLVHNCPH1206-10-38 16:57:00 Test Item Value Reference Range Interpretation Comments Hgb (test code = Hgb) 12.3 12.0-16.0 [facility]2015-12-18 10:58:00 Test Item Value Reference Range Interpretation Comments Chloride Lvl (test code = Chloride Lvl) 100 95-109 [facility]2015-12-18 10:58:00 Test Item Value Reference Range Interpretation Comments Calcium Lvl (test code = Calcium Lvl) 8.6 8.5-10.5 [facility]2015-12-18 10:58:00 Test Item Value Reference Range Interpretation Comments CO2 (test code = CO2) 27 24-32 [facility]2015-12-18 10:58:00 Test Item Value Reference Range Interpretation Comments B/C Ratio (test code = B/C Ratio) 8 6-25 [facility]2015-12-18 10:58:00 Test Item Value Reference Range Interpretation Comments Globulin (test code = Globulin) 2.6 2.0-4.0 [facility]2015-12-18 10:58:00 Test Item Value Reference Range Interpretation Comments A/G Ratio (test code = A/G Ratio) 1.2 0.7-1.6 [facility]2015-12-18 10:58:00 Test Item Value Reference Range Interpretation Comments AGAP (test code = AGAP) 13.0 10.0-20.0 [facility] CampusXkfwaezMBEOZAAAUL3304-51-54 10:58:00 Test Item Value Reference Range Interpretation Comments Segs (test code = Segs) 74.2 45.0-75.0 [facility] CampusBomajqlNZOLGDXHTK5003-77-17 10:58:00 Test Item Value Reference Range Interpretation Comments Lymphocytes (test code = Lymphocytes) 18.3 20.0-40.0 [facility] CampusDwludliZMXWWLMUBG0135-16-97 10:58:00 Test Item Value Reference Range Interpretation Comments Monocytes (test code = Monocytes) 7.0 2.0-12.0 [facility] CampusYmdydxhYABFQVDSXW0388-47-09 10:58:00 Test Item Value Reference Range Interpretation Comments Basophils (test code = 0.3 See_Comment [Aut omated message] The Basophils) system which ge nerated this result tra nsmitted reference range : <=1.0. The reference r kat was not used to int erpret this result as normal/abnormal . [facility] CampusWehnsrlYWCQKCDIOH6336-59-38 10:58:00 Test Item Value Reference Range Interpretation Comments Segs-Bands # (test code = Segs-Bands #) 8.1 1.5-8.1 [facility] CampusJhirrvfEHAYTGSTUV9365-06-05 10:58:00 Test Item Value Reference Range Interpretation Comments Eosinophils (test code = 0.2 See_Comment [A utomated message] The Eosinophils) system which ge nerated this result tra nsmitted reference range : <=4.0. The reference r kat was not used to int erpret this result as normal/abnormal . [place] 755855-12-18 10:58:00 Test Item Value Reference Range Interpretation Comments Monocytes # (test code 0.8 See_Comment [Aut omated message] The = Monocytes #) system which generated this result tra nsmitted reference range : <=0.8. The reference r kat was not used to int erpret this result as normal/abnormal . [facility] CampusHbhieumNHMXRTHCUA4672-45-46 10:58:00 Test Item Value Reference Range Interpretation Comments Lymphocytes # (test code = Lymphocytes 2.0 1.0-5.5 #) [facility] CampusWrqidznQUIGNWQERS4091-50-52 10:58:00 Test Item Value Reference Range Interpretation Comments Microcyte (test code = 1+ *ABN*(08/16/15 Microcyte) 4:58 AM) [facility] CampusBiannukPEMEXGDEMQ9048-37-58 10:58:00 Test Item Value Reference Range Interpretation Comments MPV (test code = MPV) 8.9 7.4-10.4 [facility] CampusZzsmszyLLVEAOVPIT5750-16-11 10:58:00 Test Item Value Reference Range Interpretation Comments MCV (test code = MCV) 77.3 80.0-98.0 [facility] CampusUqwdhwmBOELZMMNHZ5542-82-06 10:58:00 Test Item Value Reference Range Interpretation Comments Hgb (test code = Hgb) 11.9 12.0-16.0 [facility] CampusTbakyxnKUOYIEMPFS6990-60-32 10:58:00 Test Item Value Reference Range Interpretation Comments Hct (test code = Hct) 37.5 36.0-48.0 [facility] CampusRxxitfwBHTQJVACGT7956-83-03 10:58:00 Test Item Value Reference Range Interpretation Comments MCH (test code = MCH) 24.5 pg 27.0-31.0 [facility] CampusVhasqhvWXLNTYYCIS0250-10-70 10:58:00 Test Item Value Reference Range Interpretation Comments RBC (test code = RBC) 4.85 4.20-5.40 [facility] CampusHmjslqfTGYORESBUI9524-91-60 10:58:00 Test Item Value Reference Range Interpretation Comments WBC (test code = WBC) 10.9 3.7-10.4 [facility] CampusYtfwyxsIXAFXTDPWY9708-55-49 10:58:00 Test Item Value Reference Range Interpretation Comments RDW (test code = RDW) 15.9 11.5-14.5 [place] [id number] 10:58:00 Test Item Value Reference Range Interpretation Comments MCHC (test code = MCHC) 31.7 32.0-36.0 [facility]PjcplkjTWXEXRIDAQ4724-00-89 10:58:00 Test Item Value Reference Range Interpretation Comments Platelet (test code = Platelet) 242 133-450 [facility]2015-12-18 10:58:00 Test Item Value Reference Range Interpretation Comments eGFR (test code = eGFR) 126 [facility]2015-12-18 10:58:00 Test Item Value Reference Range Interpretation Comments AST (test code = AST) 29 See_Comment [Auto mated message] The system which ge nerated this result transmit arvind reference range : <=37. The reference range was not used to interpr et this result as mario l/abnormal. [facility]2015-12-18 10:58:00 Test Item Value Reference Range Interpretation Comments Alk Phos (test code = Alk Phos) 86 39-136 [facility]2015-12-18 10:58:00 Test Item Value Reference Range Interpretation Comments Bili Total (test code = Bili Total) 0.3 0.2-1.3 [facility]2015-12-18 10:58:00 Test Item Value Reference Range Interpretation Comments ALT (test code = ALT) 50 See_Comment [Auto mated message] The system which ge nerated this result transmit arvind reference range : <=65. The reference range was not used to interpr et this result as mario l/abnormal. [facility]2015-12-18 10:58:00 Test Item Value Reference Range Interpretation Comments Sodium Lvl (test code = Sodium Lvl) 136 135-145 [facility]2015-12-18 10:58:00 Test Item Value Reference Range Interpretation Comments Potassium Lvl (test code = Potassium 4.0 3.5-5.1 Lvl) [facility]2015-12-18 10:58:00 Test Item Value Reference Range Interpretation Comments Creatinine Lvl (test code = Creatinine 0.62 0.50-1.40 Lvl) [facility]2015-12-18 10:58:00 Test Item Value Reference Range Interpretation Comments Glucose Lvl (test code = Glucose Lvl) 101 70-99 [place] 478265-12-18 10:58:00 Test Item Value Reference Range Interpretation Comments BUN (test code = BUN) 5 7-22 [facility]2015-12-18 10:58:00 Test Item Value Reference Range Interpretation Comments Total Protein (test code = Total 5.8 6.4-8.4 Protein) [facility]2015-12-18 10:58:00 Test Item Value Reference Range Interpretation Comments Albumin Lvl (test code = Albumin Lvl) 3.2 3.5-5.0 [facility]2015-12-18 10:58:00 Test Item Value Reference Range Interpretation Comments Chloride Lvl (test code = Chloride Lvl) 100 95-109 [facility]2015-12-18 10:58:00 Test Item Value Reference Range Interpretation Comments Calcium Lvl (test code = Calcium Lvl) 8.6 8.5-10.5 [facility]2015-12-18 10:58:00 Test Item Value Reference Range Interpretation Comments CO2 (test code = CO2) 27 24-32 [facility]2015-12-18 10:58:00 Test Item Value Reference Range Interpretation Comments B/C Ratio (test code = B/C Ratio) 8 6-25 [facility]2015-12-18 10:58:00 Test Item Value Reference Range Interpretation Comments Globulin (test code = Globulin) 2.6 2.0-4.0 [facility]2015-12-18 10:58:00 Test Item Value Reference Range Interpretation Comments A/G Ratio (test code = A/G Ratio) 1.2 0.7-1.6 [facility]2015-12-18 10:58:00 Test Item Value Reference Range Interpretation Comments AGAP (test code = AGAP) 13.0 10.0-20.0 [facility]QmqdfkmXOZHNCLIZB5674-36-06 10:58:00 Test Item Value Reference Range Interpretation Comments Segs (test code = Segs) 74.2 45.0-75.0 [facility] CampusPlxcaitGFIJINLUEB0059-42-90 10:58:00 Test Item Value Reference Range Interpretation Comments Lymphocytes (test code = Lymphocytes) 18.3 20.0-40.0 [facility] CampusPrgeehvJEQDANEXOS6610-88-51 10:58:00 Test Item Value Reference Range Interpretation Comments Monocytes (test code = Monocytes) 7.0 2.0-12.0 [facility] CampusWuvczjaMNIBMKMOPX8806-59-81 10:58:00 Test Item Value Reference Range Interpretation Comments Basophils (test code = 0.3 See_Comment [Aut omated message] The Basophils) system which ge nerated this result tra nsmitted reference range : <=1.0. The reference r kat was not used to int erpret this result as normal/abnormal . [facility] CampusKuhjktrKWGLKHABCP1772-14-61 10:58:00 Test Item Value Reference Range Interpretation Comments Segs-Bands # (test code = Segs-Bands #) 8.1 1.5-8.1 [facility] CampusWtdasuiSLJSQZLHNJ0764-48-25 10:58:00 Test Item Value Reference Range Interpretation Comments Eosinophils (test code = 0.2 See_Comment [A utomated message] The Eosinophils) system which ge nerated this result tra nsmitted reference range : <=4.0. The reference r kat was not used to int erpret this result as normal/abnormal . [facility] CampusSbjxxhpTEGATOSVWO3355-56-81 10:58:00 Test Item Value Reference Range Interpretation Comments Monocytes # (test code 0.8 See_Comment [Aut omated message] The = Monocytes #) system which generated this result tra nsmitted reference range : <=0.8. The reference r kat was not used to int erpret this result as normal/abnormal . [facility] CampusTsffgypIPOKCGBWGR9060-12-33 10:58:00 Test Item Value Reference Range Interpretation Comments Lymphocytes # (test code = Lymphocytes 2.0 1.0-5.5 #) [facility] CampusMsikachBECZRQNWMJ9350-29-16 10:58:00 Test Item Value Reference Range Interpretation Comments Microcyte (test code = 1+ *ABN*(08/16/15 Microcyte) 4:58 AM) [facility] CampusHczhovuNAZCKIDZHX1824-00-73 10:58:00 Test Item Value Reference Range Interpretation Comments MPV (test code = MPV) 8.9 7.4-10.4 [facility] CampusPaidjqrKMFPBIIWSO0928-36-59 10:58:00 Test Item Value Reference Range Interpretation Comments MCV (test code = MCV) 77.3 80.0-98.0 [facility] CampusIqsebpoFOUFAOVRJM7329-54-87 10:58:00 Test Item Value Reference Range Interpretation Comments Hgb (test code = Hgb) 11.9 12.0-16.0 [facility] CampusCjyjawwNSARFWZQNA0337-12-12 10:58:00 Test Item Value Reference Range Interpretation Comments Hct (test code = Hct) 37.5 36.0-48.0 [facility] CampusUzqkbrcAETQLIZYAH2766-16-18 10:58:00 Test Item Value Reference Range Interpretation Comments MCH (test code = MCH) 24.5 pg 27.0-31.0 [facility] CampusQmacipoTWVNUMORIW7633-19-08 10:58:00 Test Item Value Reference Range Interpretation Comments RBC (test code = RBC) 4.85 4.20-5.40 [facility] CampusAdmpebiSYEOXWBWTJ9536-86-41 10:58:00 Test Item Value Reference Range Interpretation Comments WBC (test code = WBC) 10.9 3.7-10.4 [facility] CampusGocnmioHTOPZKHKXN5907-53-83 10:58:00 Test Item Value Reference Range Interpretation Comments RDW (test code = RDW) 15.9 11.5-14.5 [facility] CampusJitqnzhODBPGJENCA8943-55-23 10:58:00 Test Item Value Reference Range Interpretation Comments MCHC (test code = MCHC) 31.7 32.0-36.0 [facility] CampusFhanrnjQWRUZFDZUG2341-82-39 10:58:00 Test Item Value Reference Range Interpretation Comments Platelet (test code = Platelet) 242 133-450 [facility]2015-12-18 10:58:00 Test Item Value Reference Range Interpretation Comments eGFR (test code = eGFR) 126 [facility]2015-12-18 10:58:00 Test Item Value Reference Range Interpretation Comments AST (test code = AST) 29 See_Comment [Auto mated message] The system which ge nerated this result transmit arvind reference range : <=37. The reference range was not used to interpr et this result as mario l/abnormal. [facility]2015-12-18 10:58:00 Test Item Value Reference Range Interpretation Comments Alk Phos (test code = Alk Phos) 86 39-136 [facility]2015-12-18 10:58:00 Test Item Value Reference Range Interpretation Comments Bili Total (test code = Bili Total) 0.3 0.2-1.3 [place] 478265-12-18 10:58:00 Test Item Value Reference Range Interpretation Comments ALT (test code = ALT) 50 See_Comment [Auto mated message] The system which ge nerated this result transmit arvind reference range : <=65. The reference range was not used to interpr et this result as mario l/abnormal. [facility]2015-12-18 10:58:00 Test Item Value Reference Range Interpretation Comments Sodium Lvl (test code = Sodium Lvl) 136 135-145 [facility]2015-12-18 10:58:00 Test Item Value Reference Range Interpretation Comments Potassium Lvl (test code = Potassium 4.0 3.5-5.1 Lvl) [facility]2015-12-18 10:58:00 Test Item Value Reference Range Interpretation Comments Creatinine Lvl (test code = Creatinine 0.62 0.50-1.40 Lvl) [facility]2015-12-18 10:58:00 Test Item Value Reference Range Interpretation Comments Glucose Lvl (test code = Glucose Lvl) 101 70-99 [facility]2015-12-18 10:58:00 Test Item Value Reference Range Interpretation Comments BUN (test code = BUN) 5 7-22 [facility]2015-12-18 10:58:00 Test Item Value Reference Range Interpretation Comments Total Protein (test code = Total 5.8 6.4-8.4 Protein) [facility]2015-12-18 10:58:00 Test Item Value Reference Range Interpretation Comments Albumin Lvl (test code = Albumin Lvl) 3.2 3.5-5.0 [facility]2015-12-18 10:58:00 Test Item Value Reference Range Interpretation Comments Chloride Lvl (test code = Chloride Lvl) 100 95-109 [facility]2015-12-18 10:58:00 Test Item Value Reference Range Interpretation Comments Calcium Lvl (test code = Calcium Lvl) 8.6 8.5-10.5 [facility]2015-12-18 10:58:00 Test Item Value Reference Range Interpretation Comments CO2 (test code = CO2) 27 24-32 [facility]2015-12-18 10:58:00 Test Item Value Reference Range Interpretation Comments B/C Ratio (test code = B/C Ratio) 8 6-25 [facility]2015-12-18 10:58:00 Test Item Value Reference Range Interpretation Comments Globulin (test code = Globulin) 2.6 2.0-4.0 [facility]2015-12-18 10:58:00 Test Item Value Reference Range Interpretation Comments A/G Ratio (test code = A/G Ratio) 1.2 0.7-1.6 [facility]2015-12-18 10:58:00 Test Item Value Reference Range Interpretation Comments AGAP (test code = AGAP) 13.0 10.0-20.0 [facility] CampusOywkrbkFNSFXBVFEO8785-89-42 10:58:00 Test Item Value Reference Range Interpretation Comments Segs (test code = Segs) 74.2 45.0-75.0 [facility] CampusYywkkzbPKXEZJONVO5295-49-87 10:58:00 Test Item Value Reference Range Interpretation Comments Lymphocytes (test code = Lymphocytes) 18.3 20.0-40.0 [facility] CampusQesumppHVPQLMSHCQ6394-77-72 10:58:00 Test Item Value Reference Range Interpretation Comments Monocytes (test code = Monocytes) 7.0 2.0-12.0 [facility] CampusDvfsrorIFQQHQJBPU1416-97-29 10:58:00 Test Item Value Reference Range Interpretation Comments Basophils (test code = 0.3 See_Comment [Aut omated message] The Basophils) system which ge nerated this result tra nsmitted reference range : <=1.0. The reference r kat was not used to int erpret this result as normal/abnormal . [facility] CampusNpqkibfOVVCYYTFMQ8014-45-62 10:58:00 Test Item Value Reference Range Interpretation Comments Segs-Bands # (test code = Segs-Bands #) 8.1 1.5-8.1 [facility] CampusQgdmfomRJKJOXDSLJ2243-48-64 10:58:00 Test Item Value Reference Range Interpretation Comments Eosinophils (test code = 0.2 See_Comment [A utomated message] The Eosinophils) system which ge nerated this result tra nsmitted reference range : <=4.0. The reference r kat was not used to int erpret this result as normal/abnormal . [facility] CampusOrpsnpeXEHTKIDXQP6432-35-49 10:58:00 Test Item Value Reference Range Interpretation Comments Monocytes # (test code 0.8 See_Comment [Aut omated message] The = Monocytes #) system which generated this result tra nsmitted reference range : <=0.8. The reference r kat was not used to int erpret this result as normal/abnormal . [facility] CampusOhrxxehEEHMRJPOXP7080-17-02 10:58:00 Test Item Value Reference Range Interpretation Comments Lymphocytes # (test code = Lymphocytes 2.0 1.0-5.5 #) [facility] CampusPdyhocnFZDCRQBGZG6424-59-50 10:58:00 Test Item Value Reference Range Interpretation Comments Microcyte (test code = 1+ *ABN*(08/16/15 Microcyte) 4:58 AM) [facility] CampusGglayuuRQXRXHUJHI9557-07-72 10:58:00 Test Item Value Reference Range Interpretation Comments MPV (test code = MPV) 8.9 7.4-10.4 [facility] CampusQuvmcmtZRTSKPHABE4230-77-69 10:58:00 Test Item Value Reference Range Interpretation Comments MCV (test code = MCV) 77.3 80.0-98.0 [facility] CampusRnakeejRPJWHIRRUQ8359-81-00 10:58:00 Test Item Value Reference Range Interpretation Comments Hgb (test code = Hgb) 11.9 12.0-16.0 [facility] CampusHzxujjxROIXFBRNOA5196-82-83 10:58:00 Test Item Value Reference Range Interpretation Comments Hct (test code = Hct) 37.5 36.0-48.0 [facility] CampusNgobdssJKJCUPSYQY8159-18-71 10:58:00 Test Item Value Reference Range Interpretation Comments MCH (test code = MCH) 24.5 pg 27.0-31.0 [facility] CampusIsxpuqbFRUFYQCJAP4945-23-11 10:58:00 Test Item Value Reference Range Interpretation Comments RBC (test code = RBC) 4.85 4.20-5.40 [facility] CampusQbjsoibXDPFISCQVF0081-99-57 10:58:00 Test Item Value Reference Range Interpretation Comments WBC (test code = WBC) 10.9 3.7-10.4 [facility] CampusIefjphmXUUGHSFRZP0568-13-07 10:58:00 Test Item Value Reference Range Interpretation Comments RDW (test code = RDW) 15.9 11.5-14.5 [facility] CampusXwfvzjnEGVQXEBXZX8192-10-95 10:58:00 Test Item Value Reference Range Interpretation Comments MCHC (test code = MCHC) 31.7 32.0-36.0 [facility]RiltsnnESSKWCMNSE8897-62-07 10:58:00 Test Item Value Reference Range Interpretation Comments Platelet (test code = Platelet) 242 133-450 [facility]2015-12-18 10:58:00 Test Item Value Reference Range Interpretation Comments eGFR (test code = eGFR) 126 [facility]2015-12-18 10:58:00 Test Item Value Reference Range Interpretation Comments AST (test code = AST) 29 See_Comment [Auto mated message] The system which ge nerated this result transmit arvind reference range : <=37. The reference range was not used to interpr et this result as mario l/abnormal. [facility]2015-12-18 10:58:00 Test Item Value Reference Range Interpretation Comments Alk Phos (test code = Alk Phos) 86 39-136 [facility]2015-12-18 10:58:00 Test Item Value Reference Range Interpretation Comments Bili Total (test code = Bili Total) 0.3 0.2-1.3 [facility]2015-12-18 10:58:00 Test Item Value Reference Range Interpretation Comments ALT (test code = ALT) 50 See_Comment [Auto mated message] The system which ge nerated this result transmit arvind reference range : <=65. The reference range was not used to interpr et this result as mario l/abnormal. [facility]2015-12-18 10:58:00 Test Item Value Reference Range Interpretation Comments Sodium Lvl (test code = Sodium Lvl) 136 135-145 [facility]2015-12-18 10:58:00 Test Item Value Reference Range Interpretation Comments Potassium Lvl (test code = Potassium 4.0 3.5-5.1 Lvl) [facility]2015-12-18 10:58:00 Test Item Value Reference Range Interpretation Comments Creatinine Lvl (test code = Creatinine 0.62 0.50-1.40 Lvl) [facility]2015-12-18 10:58:00 Test Item Value Reference Range Interpretation Comments Glucose Lvl (test code = Glucose Lvl) 101 70-99 [facility]2015-12-18 10:58:00 Test Item Value Reference Range Interpretation Comments BUN (test code = BUN) 5 7-22 [facility]2015-12-18 10:58:00 Test Item Value Reference Range Interpretation Comments Total Protein (test code = Total 5.8 6.4-8.4 Protein) [facility]2015-12-18 10:58:00 Test Item Value Reference Range Interpretation Comments Albumin Lvl (test code = Albumin Lvl) 3.2 3.5-5.0 [facility]2015-12-14 15:29:00 Test Item Value Reference Range Interpretation Comments eGFR (test code = eGFR) 101 [facility]2015-12-14 15:29:00 Test Item Value Reference Range Interpretation Comments Creatinine Lvl (test code = Creatinine 0.81 0.50-1.40 Lvl) [facility]2015-12-14 15:29:00 Test Item Value Reference Range Interpretation Comments CO2 (test code = CO2) 27 24-32 [facility]2015-12-14 15:29:00 Test Item Value Reference Range Interpretation Comments Calcium Lvl (test code = Calcium Lvl) 9.7 8.5-10.5 [facility]2015-12-14 15:29:00 Test Item Value Reference Range Interpretation Comments Chloride Lvl (test code = Chloride Lvl) 100 95-109 [facility]2015-12-14 15:29:00 Test Item Value Reference Range Interpretation Comments BUN (test code = BUN) 13 7-22 [facility]2015-12-14 15:29:00 Test Item Value Reference Range Interpretation Comments Glucose Lvl (test code = Glucose Lvl) 89 70-99 [facility]2015-12-14 15:29:00 Test Item Value Reference Range Interpretation Comments Potassium Lvl (test code = Potassium 4.2 3.5-5.1 Lvl) [facility]2015-12-14 15:29:00 Test Item Value Reference Range Interpretation Comments Sodium Lvl (test code = Sodium Lvl) 134 135-145 [facility]2015-12-14 15:29:00 Test Item Value Reference Range Interpretation Comments AGAP (test code = AGAP) 11.2 10.0-20.0 [facility] CampusVwfbyibUNAHRTWCZB7160-27-16 15:29:00 Test Item Value Reference Range Interpretation Comments MPV (test code = MPV) 9.2 7.4-10.4 [facility] CampusDzqcregLBBWUMNQHJ8340-94-64 15:29:00 Test Item Value Reference Range Interpretation Comments Platelet (test code = Platelet) 307 133-450 [facility] CampusLpehvzrXDGQJUXCKB2498-72-69 15:29:00 Test Item Value Reference Range Interpretation Comments MCH (test code = MCH) 24.3 pg 27.0-31.0 [facility] CampusCxkudavXWEZKUKEJY0590-46-64 15:29:00 Test Item Value Reference Range Interpretation Comments RDW (test code = RDW) 15.7 11.5-14.5 [facility] CampusMmkueguCCUUJAZPGS4697-75-52 15:29:00 Test Item Value Reference Range Interpretation Comments MCHC (test code = MCHC) 31.2 32.0-36.0 [facility] CampusOwmnmauXHNYLPDKKD7177-53-98 15:29:00 Test Item Value Reference Range Interpretation Comments MCV (test code = MCV) 78.0 80.0-98.0 [facility] CampusGwenpicBJFBFDILMN6595-38-79 15:29:00 Test Item Value Reference Range Interpretation Comments WBC (test code = WBC) 8.6 3.7-10.4 [facility] CampusPbdabwjXMHQETQIKE8132-75-36 15:29:00 Test Item Value Reference Range Interpretation Comments Hgb (test code = Hgb) 13.2 12.0-16.0 [facility] CampusFqdwpulAOZVLRFQVY4764-84-74 15:29:00 Test Item Value Reference Range Interpretation Comments RBC (test code = RBC) 5.41 4.20-5.40 [facility] CampusGkmxpyfSVUEKFOHXR8045-91-43 15:29:00 Test Item Value Reference Range Interpretation Comments Hct (test code = Hct) 42.1 36.0-48.0 [facility] CampusVfzklvgSYXDGZUAZZ3149-77-57 15:29:00 Test Item Value Reference Range Interpretation Comments Lymphocytes # (test code = Lymphocytes 3.2 1.0-5.5 #) [facility] CampusHhtyihqFJOKCYCAXQ4122-82-46 15:29:00 Test Item Value Reference Range Interpretation Comments Eosinophils # (test code 0.1 See_Comment [A utomated message] The = Eosinophils #) system ic h generated this result tra nsmitted reference range : <=0.5. The reference r kat was not used to int erpret this result as normal/abnormal . [facility] CampusGwqbslmVIAWJXVQSS8269-35-37 15:29:00 Test Item Value Reference Range Interpretation Comments Monocytes # (test code 0.8 See_Comment [Aut omated message] The = Monocytes #) system which generated this result tra nsmitted reference range : <=0.8. The reference r kat was not used to int erpret this result as normal/abnormal . [facility] CampusQlxwkkcFYPFHLINFB1538-00-25 15:29:00 Test Item Value Reference Range Interpretation Comments Basophils (test code = 0.7 See_Comment [Aut omated message] The Basophils) system which ge nerated this result tra nsmitted reference range : <=1.0. The reference r kat was not used to int erpret this result as normal/abnormal . [facility] CampusPmmvphoMXPWZOAYIB0695-12-02 15:29:00 Test Item Value Reference Range Interpretation Comments Segs-Bands # (test code = Segs-Bands #) 4.4 1.5-8.1 [facility] CampusYwrcseuRJFSVCPICH1901-07-26 15:29:00 Test Item Value Reference Range Interpretation Comments Eosinophils (test code = 1.2 See_Comment [A utomated message] The Eosinophils) system which ge nerated this result tra nsmitted reference range : <=4.0. The reference r kat was not used to int erpret this result as normal/abnormal . [facility] CampusZhywfciKVIUKFXJBY9857-75-00 15:29:00 Test Item Value Reference Range Interpretation Comments Lymphocytes (test code = Lymphocytes) 37.4 20.0-40.0 [facility] CampusIjquvjgWGKJHNMOZV1837-02-91 15:29:00 Test Item Value Reference Range Interpretation Comments Monocytes (test code = Monocytes) 8.9 2.0-12.0 [facility] CampusUlhdxixDEJMJYREEQ9003-63-00 15:29:00 Test Item Value Reference Range Interpretation Comments Segs (test code = Segs) 51.8 45.0-75.0 [facility] CampusMhtnzilKWECIXFDUJ3711-25-21 15:29:00 Test Item Value Reference Range Interpretation Comments Microcyte (test code = 1+ *ABN*(08/12/15 Microcyte) 9:29 AM) [facility] CampusTmgfywnOKNESAPKHT5859-20-27 15:29:00 Test Item Value Reference Range Interpretation Comments Basophils # (test code 0.1 See_Comment [Aut omated message] The = Basophils #) system which generated this result tra nsmitted reference range : <=0.2. The reference r kat was not used to int erpret this result as normal/abnormal . [facility] [id number] 15:29:00 Test Item Value Reference Range Interpretation Comments U Preg (test code = U Negative (08/12/15 9:29 Preg) AM) [facility]2015-12-14 15:29:00 Test Item Value Reference Range Interpretation Comments eGFR (test code = eGFR) 101 [facility]2015-12-14 15:29:00 Test Item Value Reference Range Interpretation Comments Creatinine Lvl (test code = Creatinine 0.81 0.50-1.40 Lvl) [facility]2015-12-14 15:29:00 Test Item Value Reference Range Interpretation Comments CO2 (test code = CO2) 27 24-32 [facility]2015-12-14 15:29:00 Test Item Value Reference Range Interpretation Comments Calcium Lvl (test code = Calcium Lvl) 9.7 8.5-10.5 [facility]2015-12-14 15:29:00 Test Item Value Reference Range Interpretation Comments Chloride Lvl (test code = Chloride Lvl) 100 95-109 [facility]2015-12-14 15:29:00 Test Item Value Reference Range Interpretation Comments BUN (test code = BUN) 13 7-22 [facility]2015-12-14 15:29:00 Test Item Value Reference Range Interpretation Comments Glucose Lvl (test code = Glucose Lvl) 89 70-99 [facility]2015-12-14 15:29:00 Test Item Value Reference Range Interpretation Comments Potassium Lvl (test code = Potassium 4.2 3.5-5.1 Lvl) [facility]2015-12-14 15:29:00 Test Item Value Reference Range Interpretation Comments Sodium Lvl (test code = Sodium Lvl) 134 135-145 [facility]2015-12-14 15:29:00 Test Item Value Reference Range Interpretation Comments AGAP (test code = AGAP) 11.2 10.0-20.0 [facility]ROJSERVCED9162-56-54 15:29:00 Test Item Value Reference Range Interpretation Comments MPV (test code = MPV) 9.2 7.4-10.4 [facility]EaxveclYNKSTCUCNV0579-36-93 15:29:00 Test Item Value Reference Range Interpretation Comments Platelet (test code = Platelet) 307 133-450 [facility] CampusLdtnbnrZCYXGESCIS6202-35-10 15:29:00 Test Item Value Reference Range Interpretation Comments MCH (test code = MCH) 24.3 pg 27.0-31.0 [facility] CampusNeyfnisWNTNDXEMZN2449-23-82 15:29:00 Test Item Value Reference Range Interpretation Comments RDW (test code = RDW) 15.7 11.5-14.5 [facility] CampusAknzzjvJWIPLXXXEH2336-77-65 15:29:00 Test Item Value Reference Range Interpretation Comments MCHC (test code = MCHC) 31.2 32.0-36.0 [facility] CampusIndatsdDMLHLBEHID5707-91-45 15:29:00 Test Item Value Reference Range Interpretation Comments MCV (test code = MCV) 78.0 80.0-98.0 [facility] CampusGyqklpiOLPUJCVHWA5587-74-21 15:29:00 Test Item Value Reference Range Interpretation Comments WBC (test code = WBC) 8.6 3.7-10.4 [facility] CampusIxexpmkNSSPCUWOFI2417-77-07 15:29:00 Test Item Value Reference Range Interpretation Comments Hgb (test code = Hgb) 13.2 12.0-16.0 [facility] CampusQokvaklJYMAVUXFBK7362-43-18 15:29:00 Test Item Value Reference Range Interpretation Comments RBC (test code = RBC) 5.41 4.20-5.40 [facility] CampusLqpyvmjNSWVLRNIXR8514-57-69 15:29:00 Test Item Value Reference Range Interpretation Comments Hct (test code = Hct) 42.1 36.0-48.0 [facility] CampusGhipsziABIDLHSSVQ6960-18-36 15:29:00 Test Item Value Reference Range Interpretation Comments Lymphocytes # (test code = Lymphocytes 3.2 1.0-5.5 #) [facility] CampusQsvsdsoUNGCSGUZJV2428-90-32 15:29:00 Test Item Value Reference Range Interpretation Comments Eosinophils # (test code 0.1 See_Comment [A utomated message] The = Eosinophils #) system [facility] generated this result tra nsmitted reference range : <=0.5. The reference r kat was not used to int erpret this result as normal/abnormal . [facility] CampusNmeefnlVXKPSWWJLC9341-56-15 15:29:00 Test Item Value Reference Range Interpretation Comments Monocytes # (test code 0.8 See_Comment [Aut omated message] The = Monocytes #) system which generated this result tra nsmitted reference range : <=0.8. The reference r kat was not used to int erpret this result as normal/abnormal . [facility] CampusNldlbwjKEORSKRUUP7093-47-61 15:29:00 Test Item Value Reference Range Interpretation Comments Basophils (test code = 0.7 See_Comment [Aut omated message] The Basophils) system which ge nerated this result tra nsmitted reference range : <=1.0. The reference r kat was not used to int erpret this result as normal/abnormal . [facility] CampusFfdyzapLFAFPCQSJD8843-06-75 15:29:00 Test Item Value Reference Range Interpretation Comments Segs-Bands # (test code = Segs-Bands #) 4.4 1.5-8.1 [facility] CampusPikyizzQCSCVNWNTE5809-99-29 15:29:00 Test Item Value Reference Range Interpretation Comments Eosinophils (test code = 1.2 See_Comment [A utomated message] The Eosinophils) system which ge nerated this result tra nsmitted reference range : <=4.0. The reference r kat was not used to int erpret this result as normal/abnormal . [facility] CampusUyzmiipSCIZADCOZI0955-71-31 15:29:00 Test Item Value Reference Range Interpretation Comments Lymphocytes (test code = Lymphocytes) 37.4 20.0-40.0 [facility] CampusJmvljcqHLFUHELVJA4073-88-95 15:29:00 Test Item Value Reference Range Interpretation Comments Monocytes (test code = Monocytes) 8.9 2.0-12.0 [facility] CampusKcjqnsjDCDZLLGBZC0667-05-11 15:29:00 Test Item Value Reference Range Interpretation Comments Segs (test code = Segs) 51.8 45.0-75.0 [facility] CampusYurnoccPMKKUPZJJN2931-50-29 15:29:00 Test Item Value Reference Range Interpretation Comments Microcyte (test code = 1+ *ABN*(08/12/15 Microcyte) 9:29 AM) [facility] CampusYeykztqCDWIOSASHE8218-19-04 15:29:00 Test Item Value Reference Range Interpretation Comments Basophils # (test code 0.1 See_Comment [Aut omated message] The = Basophils #) system which generated this result tra nsmitted reference range : <=0.2. The reference r kat was not used to int erpret this result as normal/abnormal . [facility] LODT6053-06-74 15:29:00 Test Item Value Reference Range Interpretation Comments U Preg (test code = U Negative (08/12/15 9:29 Preg) AM) [facility]2015-12-14 15:29:00 Test Item Value Reference Range Interpretation Comments eGFR (test code = eGFR) 101 [facility]2015-12-14 15:29:00 Test Item Value Reference Range Interpretation Comments Creatinine Lvl (test code = Creatinine 0.81 0.50-1.40 Lvl) [facility]2015-12-14 15:29:00 Test Item Value Reference Range Interpretation Comments CO2 (test code = CO2) 27 24-32 [facility]2015-12-14 15:29:00 Test Item Value Reference Range Interpretation Comments Calcium Lvl (test code = Calcium Lvl) 9.7 8.5-10.5 [facility]2015-12-14 15:29:00 Test Item Value Reference Range Interpretation Comments Chloride Lvl (test code = Chloride Lvl) 100 95-109 [facility]2015-12-14 15:29:00 Test Item Value Reference Range Interpretation Comments BUN (test code = BUN) 13 7-22 [facility]2015-12-14 15:29:00 Test Item Value Reference Range Interpretation Comments Glucose Lvl (test code = Glucose Lvl) 89 70-99 [facility]2015-12-14 15:29:00 Test Item Value Reference Range Interpretation Comments Potassium Lvl (test code = Potassium 4.2 3.5-5.1 Lvl) [facility]2015-12-14 15:29:00 Test Item Value Reference Range Interpretation Comments Sodium Lvl (test code = Sodium Lvl) 134 135-145 [facility]2015-12-14 15:29:00 Test Item Value Reference Range Interpretation Comments AGAP (test code = AGAP) 11.2 10.0-20.0 [facility]ngipobLTMCRLGJJC4069-68-34 15:29:00 Test Item Value Reference Range Interpretation Comments MPV (test code = MPV) 9.2 7.4-10.4 [facility] CampusWcyculhCXRNPCOSUH5565-51-20 15:29:00 Test Item Value Reference Range Interpretation Comments Platelet (test code = Platelet) 307 133-450 [facility] CampusOtjfldkNWQHGBRLAK4516-36-94 15:29:00 Test Item Value Reference Range Interpretation Comments MCH (test code = MCH) 24.3 pg 27.0-31.0 [facility] CampusOgswiwqCMWOFROHMB4920-67-58 15:29:00 Test Item Value Reference Range Interpretation Comments RDW (test code = RDW) 15.7 11.5-14.5 [facility] CampusYxxfdyuKLZXNWCYCA7463-91-11 15:29:00 Test Item Value Reference Range Interpretation Comments MCHC (test code = MCHC) 31.2 32.0-36.0 [facility] CampusYoyvxblWMMJXHVKOQ8753-93-54 15:29:00 Test Item Value Reference Range Interpretation Comments MCV (test code = MCV) 78.0 80.0-98.0 [facility] CampusYnacglkMEKAHPIDEW3418-62-87 15:29:00 Test Item Value Reference Range Interpretation Comments WBC (test code = WBC) 8.6 3.7-10.4 [facility] CampusXifmtpdWAHYHDWXJU1288-32-76 15:29:00 Test Item Value Reference Range Interpretation Comments Hgb (test code = Hgb) 13.2 12.0-16.0 [facility] CampusBitypleCQBELYUUGS9763-62-69 15:29:00 Test Item Value Reference Range Interpretation Comments RBC (test code = RBC) 5.41 4.20-5.40 [facility] CampusPnxnyvcEWWJCLTEAA1764-47-01 15:29:00 Test Item Value Reference Range Interpretation Comments Hct (test code = Hct) 42.1 36.0-48.0 [facility] CampusTbzrbehSOOPOTVVGH2802-41-84 15:29:00 Test Item Value Reference Range Interpretation Comments Lymphocytes # (test code = Lymphocytes 3.2 1.0-5.5 #) [facility] CampusTlpbzdtNBZVQDIQAZ4847-11-83 15:29:00 Test Item Value Reference Range Interpretation Comments Eosinophils # (test code 0.1 See_Comment [A utomated message] The = Eosinophils #) system [facility] generated this result tra nsmitted reference range : <=0.5. The reference r kat was not used to int erpret this result as normal/abnormal . [facility] CampusIdetbttSNAZXZXNND4973-87-37 15:29:00 Test Item Value Reference Range Interpretation Comments Monocytes # (test code 0.8 See_Comment [Aut omated message] The = Monocytes #) system which generated this result tra nsmitted reference range : <=0.8. The reference r kat was not used to int erpret this result as normal/abnormal . [facility] CampusIvufipfRURTXTVVWO0800-50-08 15:29:00 Test Item Value Reference Range Interpretation Comments Basophils (test code = 0.7 See_Comment [Aut omated message] The Basophils) system which ge nerated this result tra nsmitted reference range : <=1.0. The reference r kat was not used to int erpret this result as normal/abnormal . [facility] CampusCmevdksDYFEMJGXTM2210-89-45 15:29:00 Test Item Value Reference Range Interpretation Comments Segs-Bands # (test code = Segs-Bands #) 4.4 1.5-8.1 [facility] CampusLwvctsaUJPDOUOPHS1937-55-79 15:29:00 Test Item Value Reference Range Interpretation Comments Eosinophils (test code = 1.2 See_Comment [A utomated message] The Eosinophils) system which ge nerated this result tra nsmitted reference range : <=4.0. The reference r kat was not used to int erpret this result as normal/abnormal . [facility] CampusDykbwnvPXFRKLKLQK0433-01-24 15:29:00 Test Item Value Reference Range Interpretation Comments Lymphocytes (test code = Lymphocytes) 37.4 20.0-40.0 [facility] CampusSvoivnoSYOQPMDOBJ7393-88-89 15:29:00 Test Item Value Reference Range Interpretation Comments Monocytes (test code = Monocytes) 8.9 2.0-12.0 [facility] CampusNulqqimOUOFXWKAYY5856-84-42 15:29:00 Test Item Value Reference Range Interpretation Comments Segs (test code = Segs) 51.8 45.0-75.0 [facility] CampusKuvbqxdCMDUOOMGHO3743-15-44 15:29:00 Test Item Value Reference Range Interpretation Comments Microcyte (test code = 1+ *ABN*(08/12/15 Microcyte) 9:29 AM) [facility] CampusPgturpwDROPJRNBXU3474-69-05 15:29:00 Test Item Value Reference Range Interpretation Comments Basophils # (test code 0.1 See_Comment [Aut omated message] The = Basophils #) system which generated this result tra nsmitted reference range : <=0.2. The reference r kat was not used to int erpret this result as normal/abnormal . [facility]2015-12-14 15:29:00 Test Item Value Reference Range Interpretation Comments U Preg (test code = U Negative (08/12/15 9:29 Preg) AM) [facility]2015-10-26 15:15:00 Test Item Value Reference Range Interpretation Comments U Preg (test code = U Negative (06/24/15 10:15 Preg) AM) [facility]2015-10-26 15:15:00 Test Item Value Reference Range Interpretation Comments U Preg (test code = U Negative (06/24/15 10:15 Preg) AM) [facility]2015-10-26 15:15:00 Test Item Value Reference Range Interpretation Comments U Preg (test code = U Negative (06/24/15 10:15 Preg) AM) [facility]2015-10-09 22:58:56 Test Item Value Reference Range Interpretation Comments U Cotinine Lvl (test Negative *NA*(06/07/15 code = U Cotinine Lvl) 5:58 PM) [facility]2015-10-09 22:58:56 Test Item Value Reference Range Interpretation Comments U Preg (test code = U Negative (06/07/15 5:58 Preg) PM) [facility]2015-10-09 22:58:56 Test Item Value Reference Range Interpretation Comments U Cotinine Lvl (test Negative *NA*(06/07/15 code = U Cotinine Lvl) 5:58 PM) [facility]2015-10-09 22:58:56 Test Item Value Reference Range Interpretation Comments U Preg (test code = U Negative (06/07/15 5:58 Preg) PM) [facility]2015-10-09 22:58:56 Test Item Value Reference Range Interpretation Comments U Cotinine Lvl (test Negative *NA*(06/07/15 code = U Cotinine Lvl) 5:58 PM) [facility]2015-10-09 22:58:56 Test Item Value Reference Range Interpretation Comments U Preg (test code = U Negative (06/07/15 5:58 Preg) PM) [facility]2015-10-09 22:53:19 Test Item Value Reference Range Interpretation Comments B/C Ratio (test code = B/C Ratio) 13 6-25 [facility]2015-10-09 22:53:19 Test Item Value Reference Range Interpretation Comments Globulin (test code = Globulin) 3.6 2.0-4.0 [facility]2015-10-09 22:53:19 Test Item Value Reference Range Interpretation Comments Magnesium Lvl (test code = Magnesium 1.8 1.8-2.4 Lvl) [facility] CampusNijryqlGZQECOKRUA2846-03-88 22:53:19 Test Item Value Reference Range Interpretation Comments Segs (test code = Segs) 57.5 45.0-75.0 [facility] CampusNpgmspyIMGIRKHAPE8524-82-53 22:53:19 Test Item Value Reference Range Interpretation Comments Monocytes (test code = Monocytes) 7.6 2.0-12.0 [facility] CampusCcfifvnTJEWKWJNIR7947-85-48 22:53:19 Test Item Value Reference Range Interpretation Comments Basophils (test code = 1.0 See_Comment [Aut omated message] The Basophils) system which ge nerated this result tra nsmitted reference range : <=1.0. The reference r kat was not used to int erpret this result as normal/abnormal . [facility] CampusOkzutmlBIGJJFMPHR3174-89-17 22:53:19 Test Item Value Reference Range Interpretation Comments Lymphocytes (test code = Lymphocytes) 32.9 20.0-40.0 [facility] CampusPdqyqzdPMORRROOQX5733-55-41 22:53:19 Test Item Value Reference Range Interpretation Comments Eosinophils (test code = 1.0 See_Comment [A utomated message] The Eosinophils) system which ge nerated this result tra nsmitted reference range : <=4.0. The reference r kat was not used to int erpret this result as normal/abnormal . [facility] CampusKlozswhMBBFLNQACO1651-35-80 22:53:19 Test Item Value Reference Range Interpretation Comments Lymphocytes # (test code = Lymphocytes 3.8 1.0-5.5 #) [facility] CampusHwvvqyaLWKFXCJEJV2242-71-84 22:53:19 Test Item Value Reference Range Interpretation Comments Segs-Bands # (test code = Segs-Bands #) 6.6 1.5-8.1 [facility] CampusXeqarocOKNVVWRRUO9143-15-16 22:53:19 Test Item Value Reference Range Interpretation Comments Eosinophils # (test code 0.1 See_Comment [A utomated message] The = Eosinophils #) system whic h generated this result tra nsmitted reference range : <=0.5. The reference r kat was not used to int erpret this result as normal/abnormal . [facility] CampusQdeorvbKOSQGKNUUI3658-23-19 22:53:19 Test Item Value Reference Range Interpretation Comments Monocytes # (test code 0.9 See_Comment [Aut omated message] The = Monocytes #) system which generated this result tra nsmitted reference range : <=0.8. The reference r kat was not used to int erpret this result as normal/abnormal . [facility] CampusBzkyircLRXTSVYNGP5311-30-32 22:53:19 Test Item Value Reference Range Interpretation Comments Microcyte (test code = 1+ *ABN*(06/07/15 Microcyte) 5:53 PM) [facility] CampusSimnmvzUZRMGSXVOV5579-13-55 22:53:19 Test Item Value Reference Range Interpretation Comments Basophils # (test code 0.1 See_Comment [Aut omated message] The = Basophils #) system which generated this result tra nsmitted reference range : <=0.2. The reference r kat was not used to int erpret this result as normal/abnormal . [facility] CampusVbnevazVCSVBLLHHV6353-25-95 22:53:19 Test Item Value Reference Range Interpretation Comments RBC (test code = RBC) 5.23 4.20-5.40 [facility] CampusHgvwzuvXNDXRNNUIJ2410-92-71 22:53:19 Test Item Value Reference Range Interpretation Comments Platelet (test code = Platelet) 241 133-450 [facility] CampusXnyystoRYSCKYWDZZ6023-18-32 22:53:19 Test Item Value Reference Range Interpretation Comments MPV (test code = MPV) 9.3 7.4-10.4 [facility] CampusFvnorpnKRNUEJOAJZ3473-87-45 22:53:19 Test Item Value Reference Range Interpretation Comments RDW (test code = RDW) 16.5 11.5-14.5 [facility] CampusEabqfcnOFKLWFNZUU3661-87-94 22:53:19 Test Item Value Reference Range Interpretation Comments Hct (test code = Hct) 41.0 36.0-48.0 [facility] CampusGvajvetSMWZOXTABK4110-10-56 22:53:19 Test Item Value Reference Range Interpretation Comments Hgb (test code = Hgb) 12.7 12.0-16.0 [facility] CampusKofwurmOFFWUMATHB5563-67-74 22:53:19 Test Item Value Reference Range Interpretation Comments WBC (test code = WBC) 11.5 3.7-10.4 [facility] CampusLqpmzkwHTLJXFNDSJ4957-97-35 22:53:19 Test Item Value Reference Range Interpretation Comments MCH (test code = MCH) 24.3 pg 27.0-31.0 [facility] CampusUounfvtEDMWLZGUQR8569-33-11 22:53:19 Test Item Value Reference Range Interpretation Comments MCHC (test code = MCHC) 31.0 32.0-36.0 [facility] CampusWkfuasjYAQMHONLPM1225-07-21 22:53:19 Test Item Value Reference Range Interpretation Comments MCV (test code = MCV) 78.4 80.0-98.0 [facility] TZKUC4537-65-33 22:53:19 Test Item Value Reference Range Interpretation Comments FTI (test code = FTI) 2.5 [facility]2015-10-09 22:53:19 Test Item Value Reference Range Interpretation Comments TSH (test code = TSH) 1.540 0.360-3.740 [facility]2015-10-09 22:53:19 Test Item Value Reference Range Interpretation Comments T3 Uptake (test code = T3 Uptake) 31 31-39 [facility]2015-10-09 22:53:19 Test Item Value Reference Range Interpretation Comments T4 (test code = T4) 8.0 4.7-13.3 [facility]2015-10-09 22:53:19 Test Item Value Reference Range Interpretation Comments Transferrin (test code = Transferrin) 256 212-360 [facility]2015-10-09 22:53:19 Test Item Value Reference Range Interpretation Comments Vitamin B12 Lvl (test code = Vitamin 282 479-4850 B12 Lvl) [facility]2015-10-09 22:53:19 Test Item Value Reference Range Interpretation Comments eGFR (test code = eGFR) 70 [facility]2015-10-09 22:53:19 Test Item Value Reference Range Interpretation Comments Glucose Lvl (test code = Glucose Lvl) 103 70-99 [facility]2015-10-09 22:53:19 Test Item Value Reference Range Interpretation Comments Albumin Lvl (test code = Albumin Lvl) 3.6 3.5-5.0 [facility]2015-10-09 22:53:19 Test Item Value Reference Range Interpretation Comments CO2 (test code = CO2) 24 24-32 [facility]2015-10-09 22:53:19 Test Item Value Reference Range Interpretation Comments Total Protein (test code = Total 7.2 6.4-8.4 Protein) [facility]2015-10-09 22:53:19 Test Item Value Reference Range Interpretation Comments Creatinine Lvl (test code = Creatinine 1.1 0.5-1.4 Lvl) [facility]2015-10-09 22:53:19 Test Item Value Reference Range Interpretation Comments BUN (test code = BUN) 14 7-22 [facility]2015-10-09 22:53:19 Test Item Value Reference Range Interpretation Comments AST (test code = AST) 12 See_Comment [Auto mated message] The system which ge nerated this result transmit arvind reference range : <=37. The reference range was not used to interpr et this result as mario l/abnormal. [facility]2015-10-09 22:53:19 Test Item Value Reference Range Interpretation Comments ALT (test code = ALT) 41 See_Comment [Auto mated message] The system which ge nerated this result transmit arvind reference range : <=65. The reference range was not used to interpr et this result as mario l/abnormal. [facility]2015-10-09 22:53:19 Test Item Value Reference Range Interpretation Comments Alk Phos (test code = Alk Phos) 100 39-136 [facility]2015-10-09 22:53:19 Test Item Value Reference Range Interpretation Comments Bili Total (test code = Bili Total) 0.2 0.2-1.3 [facility]2015-10-09 22:53:19 Test Item Value Reference Range Interpretation Comments Potassium Lvl (test code = Potassium 3.9 3.5-5.1 Lvl) [facility]2015-10-09 22:53:19 Test Item Value Reference Range Interpretation Comments Sodium Lvl (test code = Sodium Lvl) 141 135-145 [facility]2015-10-09 22:53:19 Test Item Value Reference Range Interpretation Comments Calcium Lvl (test code = Calcium Lvl) 9.0 8.5-10.5 [facility]2015-10-09 22:53:19 Test Item Value Reference Range Interpretation Comments Chloride Lvl (test code = Chloride Lvl) 109 95-109 [facility]2015-10-09 22:53:19 Test Item Value Reference Range Interpretation Comments AGAP (test code = AGAP) 11.9 10.0-20.0 [facility]2015-10-09 22:53:19 Test Item Value Reference Range Interpretation Comments A/G Ratio (test code = A/G Ratio) 1.0 0.7-1.6 [facility]2015-10-09 22:53:19 Test Item Value Reference Range Interpretation Comments B/C Ratio (test code = B/C Ratio) 13 6-25 [facility]2015-10-09 22:53:19 Test Item Value Reference Range Interpretation Comments Globulin (test code = Globulin) 3.6 2.0-4.0 [facility]2015-10-09 22:53:19 Test Item Value Reference Range Interpretation Comments Magnesium Lvl (test code = Magnesium 1.8 1.8-2.4 Lvl) [facility]SrjgxwvVNZQMJSPEV6209-83-23 22:53:19 Test Item Value Reference Range Interpretation Comments Segs (test code = Segs) 57.5 45.0-75.0 [facility] CampusFlvfomiDNVHRLTGZI2065-85-30 22:53:19 Test Item Value Reference Range Interpretation Comments Monocytes (test code = Monocytes) 7.6 2.0-12.0 [facility] CampusZmfpzcaWPWWEXRFYI6286-66-98 22:53:19 Test Item Value Reference Range Interpretation Comments Basophils (test code = 1.0 See_Comment [Aut omated message] The Basophils) system which ge nerated this result tra nsmitted reference range : <=1.0. The reference r kat was not used to int erpret this result as normal/abnormal . [facility] Camp[id number] 22:53:19 Test Item Value Reference Range Interpretation Comments Lymphocytes (test code = Lymphocytes) 32.9 20.0-40.0 [facility] CampusNxplqmpGZTHNJPNLJ4144-89-88 22:53:19 Test Item Value Reference Range Interpretation Comments Eosinophils (test code = 1.0 See_Comment [A utomated message] The Eosinophils) system which ge nerated this result tra nsmitted reference range : <=4.0. The reference r kat was not used to int erpret this result as normal/abnormal . [facility] CampusPktcqweVWBSGNHUQG2755-56-57 22:53:19 Test Item Value Reference Range Interpretation Comments Lymphocytes # (test code = Lymphocytes 3.8 1.0-5.5 #) [facility] CampusNopmrazPEXSIQKPEW5630-81-34 22:53:19 Test Item Value Reference Range Interpretation Comments Segs-Bands # (test code = Segs-Bands #) 6.6 1.5-8.1 [facility] CampusKltfipdYWSFKAOUCY1860-38-94 22:53:19 Test Item Value Reference Range Interpretation Comments Eosinophils # (test code 0.1 See_Comment [A utomated message] The = Eosinophils #) system wh h generated this result tra nsmitted reference range : <=0.5. The reference r kat was not used to int erpret this result as normal/abnormal . [facility] CampusMaqbpxjEYWUPCQMGK4026-97-47 22:53:19 Test Item Value Reference Range Interpretation Comments Monocytes # (test code 0.9 See_Comment [Aut omated message] The = Monocytes #) system which generated this result tra nsmitted reference range : <=0.8. The reference r kat was not used to int erpret this result as normal/abnormal . [facility] CampusSiozmjuLOKWVGZVXM2506-65-22 22:53:19 Test Item Value Reference Range Interpretation Comments Microcyte (test code = 1+ *ABN*(06/07/15 Microcyte) 5:53 PM) [facility] CampusAeawlhzFSIUIOZWFR0164-14-17 22:53:19 Test Item Value Reference Range Interpretation Comments Basophils # (test code 0.1 See_Comment [Aut omated message] The = Basophils #) system which generated this result tra nsmitted reference range : <=0.2. The reference r kat was not used to int erpret this result as normal/abnormal . [facility] CampusBltmeyrBXAMPUQCUW5496-52-08 22:53:19 Test Item Value Reference Range Interpretation Comments RBC (test code = RBC) 5.23 4.20-5.40 [facility] CampusXqvzuxvCSXODIYIBL7866-45-20 22:53:19 Test Item Value Reference Range Interpretation Comments Platelet (test code = Platelet) 241 133-450 [facility] CampusAdfmkxtMCMOSQAXQW8299-23-76 22:53:19 Test Item Value Reference Range Interpretation Comments MPV (test code = MPV) 9.3 7.4-10.4 [facility] CampusRalzdzpWONSJPHQNR4833-99-76 22:53:19 Test Item Value Reference Range Interpretation Comments RDW (test code = RDW) 16.5 11.5-14.5 [facility] CampusDnsumolZRPMGBFITV6341-78-46 22:53:19 Test Item Value Reference Range Interpretation Comments Hct (test code = Hct) 41.0 36.0-48.0 [facility] CampusUizdxxaBQRUYWRPZS0726-18-57 22:53:19 Test Item Value Reference Range Interpretation Comments Hgb (test code = Hgb) 12.7 12.0-16.0 [facility] CampusLmzogkuCHNEFAHRTJ6222-99-90 22:53:19 Test Item Value Reference Range Interpretation Comments WBC (test code = WBC) 11.5 3.7-10.4 [facility] CampusNqkqebfFLCOPRMKPI0432-86-81 22:53:19 Test Item Value Reference Range Interpretation Comments MCH (test code = MCH) 24.3 pg 27.0-31.0 [facility] CampusPtlubsnCOSCFGFGAY7095-36-27 22:53:19 Test Item Value Reference Range Interpretation Comments MCHC (test code = MCHC) 31.0 32.0-36.0 [facility] CampusUsruywcIBOBPWLDFG2971-36-64 22:53:19 Test Item Value Reference Range Interpretation Comments MCV (test code = MCV) 78.4 80.0-98.0 [facility] [id number] 22:53:19 Test Item Value Reference Range Interpretation Comments FTI (test code = FTI) 2.5 [facility] [id number] 22:53:19 Test Item Value Reference Range Interpretation Comments TSH (test code = TSH) 1.540 0.360-3.740 [facility] [id number] 22:53:19 Test Item Value Reference Range Interpretation Comments T3 Uptake (test code = T3 Uptake) 31 31-39 [facility] [id number] 22:53:19 Test Item Value Reference Range Interpretation Comments T4 (test code = T4) 8.0 4.7-13.3 [facility]2015-10-09 22:53:19 Test Item Value Reference Range Interpretation Comments Transferrin (test code = Transferrin) 256 212-360 [facility]2015-10-09 22:53:19 Test Item Value Reference Range Interpretation Comments Vitamin B12 Lvl (test code = Vitamin [phone] B12 Lvl) [facility]2015-10-09 22:53:19 Test Item Value Reference Range Interpretation Comments eGFR (test code = eGFR) 70 [facility]2015-10-09 22:53:19 Test Item Value Reference Range Interpretation Comments Glucose Lvl (test code = Glucose Lvl) 103 70-99 [facility]2015-10-09 22:53:19 Test Item Value Reference Range Interpretation Comments Albumin Lvl (test code = Albumin Lvl) 3.6 3.5-5.0 [facility]2015-10-09 22:53:19 Test Item Value Reference Range Interpretation Comments CO2 (test code = CO2) 24 24-32 [facility]2015-10-09 22:53:19 Test Item Value Reference Range Interpretation Comments Total Protein (test code = Total 7.2 6.4-8.4 Protein) [facility]2015-10-09 22:53:19 Test Item Value Reference Range Interpretation Comments Creatinine Lvl (test code = Creatinine 1.1 0.5-1.4 Lvl) [facility]2015-10-09 22:53:19 Test Item Value Reference Range Interpretation Comments BUN (test code = BUN) 14 7-22 [facility]2015-10-09 22:53:19 Test Item Value Reference Range Interpretation Comments AST (test code = AST) 12 See_Comment [Auto mated message] The system which ge nerated this result transmit arvind reference range : <=37. The reference range was not used to interpr et this result as mario l/abnormal. [facility]2015-10-09 22:53:19 Test Item Value Reference Range Interpretation Comments ALT (test code = ALT) 41 See_Comment [Auto mated message] The system which ge nerated this result transmit arvind reference range : <=65. The reference range was not used to interpr et this result as mario l/abnormal. [facility]2015-10-09 22:53:19 Test Item Value Reference Range Interpretation Comments Alk Phos (test code = Alk Phos) 100 39-136 [facility]2015-10-09 22:53:19 Test Item Value Reference Range Interpretation Comments Bili Total (test code = Bili Total) 0.2 0.2-1.3 [facility]2015-10-09 22:53:19 Test Item Value Reference Range Interpretation Comments Potassium Lvl (test code = Potassium 3.9 3.5-5.1 Lvl) [facility]2015-10-09 22:53:19 Test Item Value Reference Range Interpretation Comments Sodium Lvl (test code = Sodium Lvl) 141 135-145 [facility]2015-10-09 22:53:19 Test Item Value Reference Range Interpretation Comments Calcium Lvl (test code = Calcium Lvl) 9.0 8.5-10.5 [facility]2015-10-09 22:53:19 Test Item Value Reference Range Interpretation Comments Chloride Lvl (test code = Chloride Lvl) 109 95-109 [facility]2015-10-09 22:53:19 Test Item Value Reference Range Interpretation Comments AGAP (test code = AGAP) 11.9 10.0-20.0 [facility]2015-10-09 22:53:19 Test Item Value Reference Range Interpretation Comments A/G Ratio (test code = A/G Ratio) 1.0 0.7-1.6 [facility]2015-10-09 22:53:19 Test Item Value Reference Range Interpretation Comments Transferrin (test code = Transferrin) 256 212-360 [facility]2015-10-09 22:53:19 Test Item Value Reference Range Interpretation Comments Vitamin B12 Lvl (test code = Vitamin [phone] B12 Lvl) [facility]2015-10-09 22:53:19 Test Item Value Reference Range Interpretation Comments eGFR (test code = eGFR) 70 [facility]2015-10-09 22:53:19 Test Item Value Reference Range Interpretation Comments Glucose Lvl (test code = Glucose Lvl) 103 70-99 [facility]2015-10-09 22:53:19 Test Item Value Reference Range Interpretation Comments Albumin Lvl (test code = Albumin Lvl) 3.6 3.5-5.0 [facility]2015-10-09 22:53:19 Test Item Value Reference Range Interpretation Comments CO2 (test code = CO2) 24 24-32 [facility]2015-10-09 22:53:19 Test Item Value Reference Range Interpretation Comments Total Protein (test code = Total 7.2 6.4-8.4 Protein) [facility]2015-10-09 22:53:19 Test Item Value Reference Range Interpretation Comments Creatinine Lvl (test code = Creatinine 1.1 0.5-1.4 Lvl) [facility]2015-10-09 22:53:19 Test Item Value Reference Range Interpretation Comments BUN (test code = BUN) 14 7-22 [facility]2015-10-09 22:53:19 Test Item Value Reference Range Interpretation Comments AST (test code = AST) 12 See_Comment [Auto mated message] The system which ge nerated this result transmit arvind reference range : <=37. The reference range was not used to interpr et this result as mario l/abnormal. [facility]2015-10-09 22:53:19 Test Item Value Reference Range Interpretation Comments ALT (test code = ALT) 41 See_Comment [Auto mated message] The system which ge nerated this result transmit arvind reference range : <=65. The reference range was not used to interpr et this result as mario l/abnormal. [facility]2015-10-09 22:53:19 Test Item Value Reference Range Interpretation Comments Alk Phos (test code = Alk Phos) 100 39-136 [facility]2015-10-09 22:53:19 Test Item Value Reference Range Interpretation Comments Bili Total (test code = Bili Total) 0.2 0.2-1.3 [facility]2015-10-09 22:53:19 Test Item Value Reference Range Interpretation Comments Potassium Lvl (test code = Potassium 3.9 3.5-5.1 Lvl) [facility]2015-10-09 22:53:19 Test Item Value Reference Range Interpretation Comments Sodium Lvl (test code = Sodium Lvl) 141 135-145 [facility]2015-10-09 22:53:19 Test Item Value Reference Range Interpretation Comments Calcium Lvl (test code = Calcium Lvl) 9.0 8.5-10.5 [facility]2015-10-09 22:53:19 Test Item Value Reference Range Interpretation Comments Chloride Lvl (test code = Chloride Lvl) 109 95-109 [facility]2015-10-09 22:53:19 Test Item Value Reference Range Interpretation Comments AGAP (test code = AGAP) 11.9 10.0-20.0 [facility]2015-10-09 22:53:19 Test Item Value Reference Range Interpretation Comments A/G Ratio (test code = A/G Ratio) 1.0 0.7-1.6 [facility]2015-10-09 22:53:19 Test Item Value Reference Range Interpretation Comments B/C Ratio (test code = B/C Ratio) 13 6-25 [facility]2015-10-09 22:53:19 Test Item Value Reference Range Interpretation Comments Globulin (test code = Globulin) 3.6 2.0-4.0 [facility]2015-10-09 22:53:19 Test Item Value Reference Range Interpretation Comments Magnesium Lvl (test code = Magnesium 1.8 1.8-2.4 Lvl) [facility] CampusEaarjfgGHCKQXQWXC1763-20-26 22:53:19 Test Item Value Reference Range Interpretation Comments Segs (test code = Segs) 57.5 45.0-75.0 [facility] CampusUarcfxdDVAUXQSNTB5987-20-70 22:53:19 Test Item Value Reference Range Interpretation Comments Monocytes (test code = Monocytes) 7.6 2.0-12.0 [facility] CampusOsvukstWMQUKNJVON4506-52-52 22:53:19 Test Item Value Reference Range Interpretation Comments Basophils (test code = 1.0 See_Comment [Aut omated message] The Basophils) system which ge nerated this result tra nsmitted reference range : <=1.0. The reference r kat was not used to int erpret this result as normal/abnormal . [place] 755855-10-09 22:53:19 Test Item Value Reference Range Interpretation Comments Lymphocytes (test code = Lymphocytes) 32.9 20.0-40.0 [facility] CampusRkgcgdnWZOMDWVCBH9224-33-00 22:53:19 Test Item Value Reference Range Interpretation Comments Eosinophils (test code = 1.0 See_Comment [A utomated message] The Eosinophils) system which ge nerated this result tra nsmitted reference range : <=4.0. The reference r kat was not used to int erpret this result as normal/abnormal . [facility] CampusYylejsrHPWTXHMBPW1457-38-29 22:53:19 Test Item Value Reference Range Interpretation Comments Lymphocytes # (test code = Lymphocytes 3.8 1.0-5.5 #) [facility] CampusXoqgnfeBVNUODIEON8140-61-94 22:53:19 Test Item Value Reference Range Interpretation Comments Segs-Bands # (test code = Segs-Bands #) 6.6 1.5-8.1 [facility] CampusSrhnfmxSVQYZGZWUR9397-87-19 22:53:19 Test Item Value Reference Range Interpretation Comments Eosinophils # (test code 0.1 See_Comment [A utomated message] The = Eosinophils #) system wh h generated this result tra nsmitted reference range : <=0.5. The reference r kat was not used to int erpret this result as normal/abnormal . [facility] CampusSpvohirSCHMBPHSTX7002-27-40 22:53:19 Test Item Value Reference Range Interpretation Comments Monocytes # (test code 0.9 See_Comment [Aut omated message] The = Monocytes #) system which generated this result tra nsmitted reference range : <=0.8. The reference r kat was not used to int erpret this result as normal/abnormal . [facility] CampusHscxcmrDJYIWATINP1573-62-31 22:53:19 Test Item Value Reference Range Interpretation Comments Microcyte (test code = 1+ *ABN*(06/07/15 Microcyte) 5:53 PM) [facility] CampusQhjrxtaOACFGJBIHF9601-62-54 22:53:19 Test Item Value Reference Range Interpretation Comments Basophils # (test code 0.1 See_Comment [Aut omated message] The = Basophils #) system which generated this result tra nsmitted reference range : <=0.2. The reference r kat was not used to int erpret this result as normal/abnormal . [facility] CampusEmzjpwpBFVQNBALRB1062-39-20 22:53:19 Test Item Value Reference Range Interpretation Comments RBC (test code = RBC) 5.23 4.20-5.40 [facility] CampusUukmbmfZUTMCZUCWS8993-79-25 22:53:19 Test Item Value Reference Range Interpretation Comments Platelet (test code = Platelet) 241 133-450 [facility] CampusSaycdueVYBEPIJIFW3315-63-56 22:53:19 Test Item Value Reference Range Interpretation Comments MPV (test code = MPV) 9.3 7.4-10.4 [facility] CampusSqrtkraWAYNLRNKKM3560-06-56 22:53:19 Test Item Value Reference Range Interpretation Comments RDW (test code = RDW) 16.5 11.5-14.5 [facility] CampusNfyrvkuYGZSXKQNDT1169-15-91 22:53:19 Test Item Value Reference Range Interpretation Comments Hct (test code = Hct) 41.0 36.0-48.0 [facility] CampusMhokgfvZTOWNDVWSU8261-27-34 22:53:19 Test Item Value Reference Range Interpretation Comments Hgb (test code = Hgb) 12.7 12.0-16.0 [facility] CampusNtvrmieXTFMWPVDYN8826-91-64 22:53:19 Test Item Value Reference Range Interpretation Comments WBC (test code = WBC) 11.5 3.7-10.4 [facility] CampusSyedgaeHEWNWAGTEN3343-61-29 22:53:19 Test Item Value Reference Range Interpretation Comments MCH (test code = MCH) 24.3 pg 27.0-31.0 [facility] CampusVbcckldFHKQIWCSCW9709-02-32 22:53:19 Test Item Value Reference Range Interpretation Comments MCHC (test code = MCHC) 31.0 32.0-36.0 [facility] CampusOdatyhyTVVFGGEKSB6920-75-36 22:53:19 Test Item Value Reference Range Interpretation Comments MCV (test code = MCV) 78.4 80.0-98.0 [facility] [id number] 22:53:19 Test Item Value Reference Range Interpretation Comments FTI (test code = FTI) 2.5 [facility] [id number] 22:53:19 Test Item Value Reference Range Interpretation Comments TSH (test code = TSH) 1.540 0.360-3.740 [facility]TH[facility] [id number] 22:53:19 Test Item Value Reference Range Interpretation Comments T3 Uptake (test code = T3 Uptake) 31 31-39 [facility]TH[facility] [id number] 22:53:19 Test Item Value Reference Range Interpretation Comments T4 (test code = T4) 8.0 4.7-13.3 [facility]
[2022-10-20 09:18] LABS: Hematocrit 39.8 % (36.0-45.0); Lymphocytes % 30.5 % (15.3-44.8); MCV 77.5 fL (80-100); MPV 8.9 fL (7.6-11.3); RBC Red Blood Cell Count 5.14 M/uL (3.86-4.86)
[2022-10-20 09:37] LABS: Potassium 3.9 mmol/L (3.5-5.1); Troponin High Sensitivity 3.3 pg/mL (<58.9)
[2022-10-20 09:40] LABS: Urine Blood 2+ (Negative); Urine Glucose Negative (Negative); Urine Protein 1+ (Negative); Urine pH 7.5 (5.0-7.0)
--- NOTE | 2022-10-20 10:37 | RAD REPORT ---
EXAM DESCRIPTION: CT - Head Brain Wo Cont - 10/20/2022 10:10 am CLINICAL HISTORY: left sided weakness Headache, drowsiness COMPARISON: Head angio dated 10/20/2022 TECHNIQUE: All CT scans are performed using dose optimization technique as appropriate and may inclu de automated exposure control or mA/KV adjustment according to patient size. FINDINGS: No intracranial hemorrhage, hydrocephalus or extra-axial fluid collection.No areas of brai n edema or evidence of midline shift. The paranasal sinuses and mastoids are clear. 8 mm calcification right nasal airway may represent ost eoma. The calvarium is intact. IMPRESSION: No acute intracranial abnormality.
--- NOTE | 2022-10-20 10:40 | RAD REPORT ---
EXAM DESCRIPTION: CT - Head angio - 10/20/2022 10:10 am CLINICAL HISTORY: left sided weakness Headache, drowsiness, CVA symptomology COMPARISON: No comparisons TECHNIQUE: CT angiography of the head was performed with MIPs. All CT scans are performed using dose optimization technique as appropriate and may include automated exposure control or mA/KV adjustment according to patient size. FINDINGS: No evidence of large vessel occlusion. No evidence of aneurysm is detected. No flow-limiti ng stenosis or vascular malformation identified. Antegrade flow is seen in the vertebral arteries. The vertebral arteries are codominant. The visualized dural venous sinuses are patent. IMPRESSION: No significant flow abnormality is detected.
--- NOTE | 2022-10-20 10:45 | RAD REPORT ---
EXAM DESCRIPTION: CT - Neck Angio - 10/20/2022 10:12 am CLINICAL HISTORY: left sided numbness Headache, drowsiness COMPARISON: No comparisons TECHNIQUE: CT angiography of the neck vessels was performed with MIPs. All CT scans are performed using dose optimization technique as appropriate and may include automated exposure control or mA/KV adjustment according to patient size. FINDINGS: A left aortic arch is identified with normal three vessel configuration of the great vesse ls. No significant flow abnormality is seen of the common carotid bilaterally. No significant stenosis is identified involving the cervical segments of both internal carotid arteri es. Normal flow is seen within both vertebral arteries. Mildly enlarged lymph nodes are seen both jugular chains. IMPRESSION: No significant flow abnormality of the neck vessels is identified.
--- NOTE | 2022-10-20 11:02 | RAD REPORT ---
EXAM DESCRIPTION: MRI - Brain Wo Cont - 10/20/2022 10:28 am CLINICAL HISTORY: left facial numbness Headache, drowsiness, CVA symptomology COMPARISON: Head Brain Wo Cont dated 10/20/2022 TECHNIQUE: Multi-sequence, multiplanar MR imaging of the brain was performed without contrast. FINDINGS: No intracranial hemorrhage, hydrocephalus or extra-axial fluid collections. No edema or sh ift of midline structures. No findings to suspect brain mass. DWI is negative for acute CVA. Midline structures are normally formed. Mastoid air cells and paranasal sinuses are clear. IMPRESSION: Negative for acute CVA or other acute intracranial finding.
--- NOTE | 2022-10-20 11:29 | ER ---
Nurse's Notes [facility] Name: Kyra Quispe Age: 32 yrs Sex: Female : 1990 Arrival Date: 10/20/2022 Time: 08:34 Bed 7 Private MD: Diagnosis: Paresthesia of skin;UTI/ Urinary tract infection, site not specified Presentation: 10/20 08:40 Chief complaint: Patient states: Patient reports left flank pain x 3 days and then sg5 developed left sided numbness to face, arm and leg x 12 hours. Coronavirus screen: Vaccine status: Patient reports receiving the 2nd dose of the covid vaccine. Ebola Screen: No symptoms or risks identified at this time. Initial Sepsis Screen: Does the patient meet any 2 criteria? No. Patient's initial sepsis screen is negative. Initial Sepsis Screen: Does the patient have a suspected source of infection? No. Patient's initial sepsis screen is negative. Risk Assessment: Do you want to hurt yourself or someone else? Patient reports no desire to harm self or others. Onset of symptoms was October 19, 2022. 08:40 Method Of Arrival: Ambulatory sg5 08:40 Acuity: MONE 3 sg5 Triage Assessment: 08:53 General: Appears comfortable, Behavior is calm, cooperative, appropriate for age. Pain: sg5 Complains of pain in left flank Pain currently is 7 out of 10 on a pain scale. Neuro: Reports numbness in left side of body face, arm and leg. Cardiovascular: No deficits noted. Respiratory: No deficits noted. 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 - Social history:: Smoking status: Smoking status: Patient denies any tobacco usage or history of. Screenin:03 [facility] ED Fall Risk Assessment (Adult) History of falling in the last 3 months, sg5 including since admission No falls in past 3 months (0 pts). Abuse screen: Denies threats or abuse. Denies injuries from another. Nutritional screening: No deficits noted. Tuberculosis screening: No symptoms or risk factors identified. Assessment: 09:00 General: Appears comfortable, Behavior is calm, cooperative, appropriate for age. Pain: sg5 Complains of pain in left flank Pain currently is 7 out of 10 on a pain scale. Neuro: Level of Consciousness is awake, alert, obeys commands, Oriented to person, place, time, situation, Appropriate for age Mix House Operator are equal bilaterally Moves all extremities. Gait is steady, Speech is normal, Facial symmetry appears normal, Pupils are PERRLA, Pupil Size: 3 Numbness in reports numbeness to left side of face, arm and leg Reports numbness in left side of face, arm and leg. Cardiovascular: Heart tones S1 S2 present Rhythm is regular. Respiratory: No deficits noted. Airway is patent. GI: No deficits noted. No signs and/or symptoms were reported involving the gastrointestinal system. : No deficits noted. Reports intermittent bleeding from chronic left ovarian cyst. EENT: No deficits noted. Reports left facial numbness. Derm: No deficits noted. No signs and/or symptoms reported regarding the dermatologic system. Musculoskeletal: No deficits noted. No signs and/or symptoms reported regarding the musculoskeletal system. 10:04 Reassessment: No changes from previously documented assessment. Patient and/or family bp updated on plan of care and expected duration. Pain level reassessed. PT IN RAD. 10:45 Reassessment: PT RETURNED FROM RAD. bp Vital Signs: 08:40 BP 133 / 91; Pulse 73; Resp 16; Temp 98.3; Pulse Ox 98% on R/A; Weight 141.97 kg; sg5 Height 5 ft. 7 in. (170.18 cm); Pain 7/10; 10:04 BP 126 / 80; Pulse 70; Resp 16; Pulse Ox 97% ; bp 10:39 BP 136 / 88; Pulse 68; Resp 16; Pulse Ox 98% on R/A; sg5 11:48 BP 133 / 100; Pulse 78; Resp 16; Pulse Ox 98% on R/A; Pain 3/10; sg5 08:40 Body Mass Index 49.02 (141.97 kg, 170.18 cm) sg5 NIH Stroke Scale Scores: 08:45 NIHSS Score: 3 [facility] ED Course: 08:34 Patient arrived in ED. rg4 08:35 Daniel Leong PA is PHCP. [facility] 08:35 Galo Rojas MD is Attending Physician. [facility] 08:48 Christelle Becerra, RN is Primary Nurse. ph 08:53 Triage completed. sg5 08:53 Arm band placed on right wrist. sg5 08:54 Kar Dixon MD is Attending Physician. jmm 08:55 Anthony Weiss, CY is Primary Nurse. bp 09:03 Patient has correct armband on for positive identification. Placed in gown. Bed in low sg5 position. Call light in reach. Side rails up X 1. 10:40 Troponin HS Sent. bp 10:40 PT-INR Sent. bp 10:40 CBC with Diff Sent. bp 10:40 Basic Metabolic Panel Sent. bp 10:40 Urine --Ancillary (enter results) Sent. bp 11:28 Arturo Michelle MD is Referral Physician. jmm 11:29 Clarke Saab MD is Referral Physician. jmm 11:29 Yves Harley MD is Referral Physician. [facility] 11:43 IV discontinued. sg5 11:49 No provider procedures requiring assistance completed. sg5 Administered Medications: No medications were administered Medication: 09:03 VIS not applicable for this client. sg5 Outcome: 11:29 Discharge ordered by . [facility] 11:49 Discharged to home sg5 11:49 Condition: good 11:49 Discharge instructions given to patient, Instructed on discharge instructions, follow up and referral plans. 11:50 Patient left the ED. sg5 NIH Stroke Scale - NIH Stroke Score Date: 10/20/2022 Time: 08:45 Total Score = 3 1a. Level of Consciousness (LOC) - 0(Alert) 1b. Level of Consciousness (LOC) (Month \T\ Age) - 0(Both) 1c. LOC Commands (Open \T\ Closes Eyes/Playground Aide) - 0(Both) 2. Best Gaze (Lateral Gaze Paresis) - 0(Normal) 3. Visual Field Loss - 0(No visual loss) 4. Facial Palsy - 0(Normal) 5a. Left Arm: Motor (10-second hold) - 1(Drift) 5b. Right Arm: Motor (10-second hold) - 0(No drift) 6a. Left Leg: Motor (5-second hold - always test supine) - 1(Drift) 6b. Right Leg: Motor (5-second hold - always test supine) - 0(No drift) 7. Limb Ataxia (finger/nose \T\ heel/damico - test with eyes open) - 0(Absent) 8. Sensory Loss (pinprick arms/legs/face) - 1(Mild to moderate loss) 9. Best Language: Aphasia (description/naming/reading) - 0(No aphasia) 10. Dysarthria (speech clarity - read or repeat words) - 0(Normal) 11. Extinction and Inattention (visual/tactile/auditory/spatial/personal) - 0(No abnormality) Initials: fab Signatures: Daniel Leong PA PA jmm Hall, Patricia, RN RN Zaida Patel rg4 Anthony Weiss, RN RN bp Tiff Merrill RN RN sg5
--- NOTE | 2022-10-20 11:30 | EDPHYS ---
Physician Documentation [facility] Name: Kyra Quispe Age: 32 yrs Sex: Female : 1990 Arrival Date: 10/20/2022 Time: 08:34 Bed 7 Private MD: ED Physician Kar Dixon HPI: 10/20 09:08 This 32 yrs old Female presents to ER via Ambulatory with complaints of Numbness Of jmm Leg/Arm. 09:08 The patient's problem is reported as paresthesias, in left upper extremity, in left jmm lower extremity, in left side of face. Onset: The symptoms/episode began/occurred gradually, 12 hour(s) ago. Duration: This was a single incident. This is a 32 year old female with a history of dm, seizures that presents to the ED with complaints of left facial, left UE, and left LLE beginning last night around 9 pm. Patient was recently evaluated in the ED and diagnosed with a left sided ovarian cyst. States she had a similar episode of numbness 8 months ago and diagnosed with a "mini stroke". Patient is currently not taking medication at home for any condition. . 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 - Social history:: Smoking status: Smoking status: Patient denies any tobacco usage or history of. ROS: 09:08 Constitutional: Negative for fever, chills, and weight loss, Cardiovascular: Negative jmm for chest pain, palpitations, and edema, Respiratory: Negative for shortness of breath, cough, wheezing, and pleuritic chest pain. 09:08 Back: Positive for flank pain, on the left. 09:08 Neuro: Positive for numbness. 09:08 All other systems are negative. Exam: 09:08 Constitutional: This is a well developed, well nourished patient who is awake, alert, jmm and in no acute distress. Head/Face: atraumatic. Eyes: EOMI, no conjunctival erythema appreciated ENT: Moist Mucus Membranes Neck: Trachea midline, Supple Chest/axilla: Normal chest wall appearance and motion. Cardiovascular: Regular rate and rhythm. No edema appreciated Respiratory: Normal respirations, no respiratory distress appreciated Abdomen/GI: Non distended Back: Normal ROM Skin: General appearance color normal MS/ Extremity: Moves all extremities, no obvious deformities appreciated, no edema noted to the lower extremities Neuro: Awake and alert Psych: Behavior is normal, Mood is normal, Patient is cooperative and pleasant Vital Signs: 08:40 BP 133 / 91; Pulse 73; Resp 16; Temp 98.3; Pulse Ox 98% on R/A; Weight 141.97 kg; sg5 Height 5 ft. 7 in. (170.18 cm); Pain 7/10; 10:04 BP 126 / 80; Pulse 70; Resp 16; Pulse Ox 97% ; bp 10:39 BP 136 / 88; Pulse 68; Resp 16; Pulse Ox 98% on R/A; sg5 11:48 BP 133 / 100; Pulse 78; Resp 16; Pulse Ox 98% on R/A; Pain 3/10; sg5 08:40 Body Mass Index 49.02 (141.97 kg, 170.18 cm) sg5 NIH Stroke Scale Scores: 08:45 NIHSS Score: 3 [facility] MDM: 08:36 Patient medically screened. [facility] 09:35 Differential diagnosis: CVA, TIA. [facility] 11:27 Data reviewed: vital signs, nurses notes. ED course: . [facility] 11:27 Management of patient was discussed with the following: Dr. Kar Dixon. [facility] 11:27 Historians other than the Patient: Mother. Care significantly affected by the following [facility] chronic conditions: Diabetes, Epilepsy. Counseling: I had a detailed discussion with the patient and/or guardian regarding: the historical points, exam findings, and any diagnostic results supporting the discharge/admit diagnosis, lab results, radiology results, the need for outpatient follow up, to return to the emergency department if symptoms worsen or persist or if there are any questions or concerns that arise at home. ED course: Paresthesias have partly resolved while in the ED. Patient now describes more of a painful sensation than numbness. Patient had no difficulty with her gait. Imaging studies were negative for any acute process. Patient was encouraged to follow-up with neurology for further evaluation. Patient understood agrees plan of care. 10/20 08:44 Order name: Basic Metabolic Panel [facility] 10/20 08:44 Order name: CBC with Diff [facility] 10/20 08:44 Order name: PT-INR [facility] 10/20 08:44 Order name: Troponin HS [facility] 10/20 09:26 Order name: CBC with Automated Diff; Complete Time: 09:36 [facility] 10/20 09:27 Order name: Protime (+INR); Complete Time: 09:36 [facility] 10/20 08:44 Order name: CT Head Brain wo Cont [facility] 10/20 08:45 Order name: CT Head Angio [facility] 10/20 08:45 Order name: CT Neck Angio [facility] 10/20 09:38 Order name: Basic Metabolic Panel; Complete Time: 09:38 [facility] 10/20 09:38 Order name: Troponin High Sensitivity; Complete Time: 09:38 [facility] 10/20 09:40 Order name: Urine Dipstick-Ancillary; Complete Time: 09:48 [facility] 10/20 09:44 Order name: Urine --Ancillary (enter results) [facility] 10/20 09:46 Order name: Urine --Ancillary; Complete Time: 09:48 [facility] 10/20 08:44 Order name: EKG; Complete Time: 08:45 [facility] 10/20 08:44 Order name: Cardiac monitoring; Complete Time: 09:29 [facility] 10/20 08:44 Order name: EKG - Nurse/Tech; Complete Time: 09:19 [facility] 10/20 08:44 Order name: IV Saline Lock; Complete Time: 09:29 [facility] 10/20 08:44 Order name: Labs collected and sent; Complete Time: 09:29 [facility] 10/20 08:44 Order name: O2 Per Protocol; Complete Time: 09:04 [facility] 10/20 08:44 Order name: O2 Sat Monitoring; Complete Time: 09:04 [facility] 10/20 08:53 Order name: MRI - Brain Wo Cont [facility] 10/20 10:37 Order name: CT; Complete Time: 10:41 [facility] 10/20 10:41 Order name: CT; Complete Time: 10:41 [facility] 10/20 10:46 Order name: CT; Complete Time: 10:54 [facility] 10/20 11:02 Order name: MRI; Complete Time: 11:07 [facility] EC:10 Rate is 71 beats/min. Rhythm is regular. WA interval is normal. QRS interval is normal. jmm QT interval is normal. T waves are Flattened in lead aVF. No ST changes noted. Reviewed by me. Administered Medications: No medications were administered Disposition: 11:58 Co-signature as Attending Physician, Kar Dixon MD. rn Disposition Summary: 10/20/22 11:29 Discharge Ordered Location: Home [facility] Condition: Stable jmm Diagnosis - Paresthesia of skin jmm - UTI/ Urinary tract infection, site not specified jm Followup: m - With: Arturo Michelle MD - When: 2 - 3 days - Reason: Recheck today's complaints, Continuance of care, Re-evaluation by your physician Followup: jmm - With: Clarke Saab MD - When: 2 - 3 days - Reason: Recheck today's complaints, Continuance of care, Re-evaluation by your physician Followup: jmm - With: Yves Harley MD - When: 2 - 3 days - Reason: Recheck today's complaints, Continuance of care, Re-evaluation by your physician Discharge Instructions: - Discharge Summary Sheet jm - Paresthesia jmm - Pelvic Pain, Female jmm - Urinary Tract Infection, Adult [facility] Forms: - Medication Reconciliation Form [facility] - Thank You Letter [facility] - Antibiotic Education [facility] - Prescription Opioid Use [facility] Prescriptions: - Cephalexin 500 mg Oral Capsule - take 1 capsule by ORAL route every 8 hours for 10 days; 30 capsule; Refills: 0, [facility] Product Selection Permitted - Medrol (Julio) 4 mg Oral Tablets, Dose Pack - take 1 tablet by ORAL route as directed - follow package instructions; 1 [facility] packet; Refills: 0, Product Selection Permitted - orphenadrine citrate 100 mg Oral Tablet Sustained Release - take 1 tablet by ORAL route 2 times per day As needed; 20 tablet; Refills: 0, [facility] Product Selection Permitted NIH Stroke Scale - NIH Stroke Score Date: 10/20/2022 Time: 08:45 Total Score = 3 1a. Level of Consciousness (LOC) - 0(Alert) 1b. Level of Consciousness (LOC) (Month \\T\\ Age) - 0(Both) 1c. LOC Commands (Open \\T\\ Closes Eyes/Wallpaper Hanger) - 0(Both) 2. Best Gaze (Lateral Gaze Paresis) - 0(Normal) 3. Visual Field Loss - 0(No visual loss) 4. Facial Palsy - 0(Normal) 5a. Left Arm: Motor (10-second hold) - 1(Drift) 5b. Right Arm: Motor (10-second hold) - 0(No drift) 6a. Left Leg: Motor (5-second hold - always test supine) - 1(Drift) 6b. Right Leg: Motor (5-second hold - always test supine) - 0(No drift) 7. Limb Ataxia (finger/nose \\T\\ heel/damico - test with eyes open) - 0(Absent) 8. Sensory Loss (pinprick arms/legs/face) - 1(Mild to moderate loss) 9. Best Language: Aphasia (description/naming/reading) - 0(No aphasia) 10. Dysarthria (speech clarity - read or repeat words) - 0(Normal) 11. Extinction and Inattention (visual/tactile/auditory/spatial/personal) - 0(No abnormality) Initials: fab Signatures: Dispatcher [employer] EDDaniel Finnegan PA PA jmm Nieto, Roman, MD MD rn Peltier, Brian, RN RN bp Galvan, Stephanie, RN RN sg5
[2022-10-20 12:03] VITALS: O2SAT 98
[2022-10-20 12:04] VITALS: BP 133/100
[2022-10-20 12:33] VITALS: TEMP 98.3
--- NOTE | 2022-10-20 16:17 | EKG ---
Test Date: 2022-10-20 Test Time: 09:20:05 Senior Research Executive: PRIYA MEASUREMENT RESULTS: Intervals: Rate: 71 [place]: 148 QRSD: 90 QT: 370 QTc: 402 [place]: P: 24 [place]: 148 QRS: 29 T: 5 INTERPRETIVE STATEMENTS: Normal sinus rhythm Possible Anterior infarct, age undetermined Abnormal ECG No previous ECG available for comparison Electronically Signed On 10-20-22 16:16:32 FOOD SERVICE DRIVER by Gustabo Garcia
== END 2022-10-20 11:50 | disposition home or self-care (01) ==
LOC: ER 08:28
DX: R20.2 Paresthesia of skin (principal); N39.0 Urinary tract infection, site not specified; E11.9 Type 2 diabetes mellitus without complications; Z91.040 Latex allergy status; Z91.048 Other nonmedicinal substance allergy status
CPT/HCPCS: 93005; 85025; 80048; 36415; 81025; 85610; 81003; 84484; 70450; 70496; 70498; 70551; Q9967

== ENCOUNTER 2023-01-15 10:00 | Emergency (ER) | payer OTHER ==
[2023-01-15] MEDS ORDERED: ONDANSETRON 4 MG/2 ML VIAL ONE (10:29)
[2023-01-15] MEDS ORDERED: KETOROLAC 30 MG/ML INJ ONE (10:29)
[2023-01-15] MEDS ORDERED: NA CHLORIDE 0.9% 1,000 ML ONE (10:29)
--- OUTSIDE RECORDS SUMMARY | 2023-01-15 10:31 | XMS REPORT | Continuity of Care Document ---
:1990 Author Organization [facility] t Address [address] [facility]. [address] [place] [address] Care Team Providers Name Role Phone JAMAR CASAS Primary Care Physician Unavailable Doug Gamble Attending Clinician DOUG HAMMER Attending Clinician Unavailable PAM COLE Attending Clinician Unavailable Anahi Hoang MD Attending Clinician DA CHAPIN Attending Clinician Unavailable [email or web address] Attending Clinician Unavailable JENNY FLETCHER Attending Clinician Unavailable BRIE GALVAN Attending Clinician Unavailable Kaycee Longo Attending Clinician [phone] LEYLA GALVAN Attending Clinician Unavailable Thania Barrera Attending Clinician THANIA BARRERA Attending Clinician Unavailable Sukhwinder Thomas Attending Clinician SUKHWINDER THOMAS Attending Clinician Unavailable AMBREEN_FARHANA Attending Clinician Unavailable JERZY BRADFORD Attending Clinician [...] Clinician Unavailable GÓMEZ WHITE Attending Clinician Unavailable AVLIN TANG Attending Clinician Unavailable DIPAK GUZMAN Attending [...] Policy Number Effective Date Expiration Date Dav[place] [facility] [place] [id number] 2020 2021 [employer] 00:00:00 00:00:00 [facility] [id number] [facility] [id number] [facility] [id number] 2021 PROGRAM 00:00:00 [place] [id number] 2021 [facility] 00:00:00 PROGRAM (MEDICAID) [facility] [id number] 2020 00:00:00 Problems Condition Condition Condition Status Onset Resolution Last Treating Co mments Source Name Details Category Date Date Treatment Clinician Date FACE/RT FACE/RT Diagnosis Active 2022-03-19 Memoria SIDE SIDE - 13:51:00 l NUMBNESS NUMBNESS 00:00: Garrett lynch Active 00 [facility], FEVER, Diagnosis Active 2022-03-13 Me moria BODY PAIN BODY PAIN 03-13 21:46:00 l Active 00:00: Dav 03/13/[address] [place] [address] Hypertensi Hypertensi Problem Active P rivia ve ve 3-29 Medical disorder Disorder 00:00: 00 SENT BY SENT BY Diagnosis Active 2021-03-[address] Active 01-20 15:44:00 l 01/20/2021 00:00: Garrett VILLA [address] INTRACTABL INTRACTAB Diagnosis Active 2015-10-17 Memoria E VOMITING LE 09-02 16:18:00 l S/P VOMITING 00:00: Dav GASTRIC S/P 00 SLEEVE GASTRIC SLEEVE Active 09/02/2015 [facility] VOMITTING VOMITTING Diagnosis Active 2015-09-17 Memoria Active 09-02 18:24:00 l 09/02/2015 00:00: Garrett lynch [address] [place] ABDOMINAL Diagnosis Active 2014-082015-08-26 Memoria PAIN ABDOMINAL 10-27 11:29:00 l PAIN 00:00: Dav Active 00 08/26/2015 [facility] UNK UNK Diagnosis Active 2014-082015-08-06 Mem oria Active 10-06 12:24:00 l 08/05/2015 00:00: Garrett lynch 00 [place] E66.01 E66.01 Diagnosis Active 2015-1 2015-08-16 Me moria Active 10-06 14:56:00 l 08/05/2015 00:00: Garrett lynch 00 [facility] MORBID MORBID Diagnosis Active 2014-082015-06-24 [place] OBESITY OBESITY 0-23 15:17:00 l Active 00:00: Dav 06/21/2015 00 [facility] K21.9; K21.9; Diagnosis Active 2014-082015-06-24 [place] GASTRO-ESO GASTRO-ESO 0- 09:25:00 l PHAGEAL PHAGEAL 00:00: Dav REFLUX REFLUX 00 DISEASE DISEASE Active 06/19/2015 [facility] K21.0 K21.0 Diagnosis Active 2015-06-10 Mem oria Active 05-07 06:23:00 l 05/07/2015 00:00: Garrett lynch 00 [facility] Bipolar Bipolar Problem Resolve 2015-09-22 Memoria (qualifier (qualifier d 02:57:40 l value) value) Dav Resolved Problem 09/22/2015 [facility] Obesity Obesity Problem Resolve 2015-09-22 M emoria (disorder) (disorder) d 02:57:40 l Resolved Dav Problem 09/22/2015 [facility] Acid Acid Problem Active 2015-09-22 Memor ia reflux reflux 02:57:40 l (finding) (finding) Herm kailash Active Problem 09/22/2015 [facility] Pain in Pain in Problem Active 2022-03-21 M emoria lower limb lower limb 21:09:41 l (finding) (finding) Herm kailash Active Problem 03/21/2022 [facility] GASTRO-ESO GASTRO-ES Diagnosis Active 2015-06-10 Memoria PHAGEAL OPHAGEAL 06:23:00 l REFLUX REFLUX Dav DISEASE DISEASE WITH ES WITH ES Active [facility] MORBID MORBID Diagnosis Active 2015-08-16 Wa moria (SEVERE) (SEVERE) 14:56:00 l OBESITY OBESITY [place] DUE TO DUE TO EXCESS CA EXCESS CA Active [facility] VOMITING, VOMITING, Diagnosis Active 2015-10-17 Memoria UNSPECIFIE UNSPECIFIE 16:18:00 l D D Active [facility] History of Past Illness Condition Condition Condition Status Onset Resolution Last Treating Co mments Source Name Details Category Date Date Treatment Clinician Date 2018-nCoV 2018-nCoV Problem 2022-03-21 2022-03-21 Memoria acute acute 7-21 21:09:41 21:09:41 l respirator respirator 06:21: He rmann y disease y disease 00 03/19/2022 03/21/2022 [facility] Paresthesi Paresthes Problem 2022-03-21 2022-03-21 Memoria a of skin ia of skin 03-19 21:09:41 21:09:41 l 03/19/2022 06:21: Garrett n 2 [facility] Hypokalemi Hypokalem Problem 2022-03-21 2022-03-21 Memoria a ia 03-19 21:09:41 21:09:41 l 03/19/2022 06:21: Garrett n 2 [facility] Discharge Discharge Problem 2014-082015-08-29 2015-08-29 Memoria Diagnosis: Diagnosis: 10-27 03:22:03 03:22:03 l Abdominal Abdominal 06:00: Herm kailash pain pain 00 08/26/2015 5 [facility] Allergies, Adverse Reactions, Alerts Allergy [...] reaction 00 l s to drug Latex Latex Active Memoria l Dav Tessalon Tessalon Active Memori a Perlzoltan mcwilliams Dav Latex Allergy Active [facility] substanc e Social History Social Habit Start Date Stop Date Quantity Comments Source [facility] History of Social 2022-11-03 2022-11-[address] function 00:00:00 00:00:00 Hospital Exposure to 2022-08-16 2022-08-26 Not sure [facility] SARS-CoV-2 (event) 00:00:00 13:07:00 [facility] Alcohol intake 2022-06-11 2022-06-11 Current Islam 00:00:00 00:00:00 non-drinker of Hospital alcohol (finding) Tobacco use and 2018-05-14 2018-05-14 Smokeless Islam exposure 00:00:00 00:00:00 tobacco non-user Hospital Social History 2015-08-15 2015-08-15 [facility] 18:23:25 18:23:25 Sex Ass[birth year] At [birth year] [facility] 00:00:00 00:00:00 Hospital Smoking Status Start Date Stop Date Source Tobacco smoking consumption [facility] Never smoked tobacco [facility] Medications Ordered Filled Start Stop Current Ordering Indication Dosage Frequency Signature Comments Components Source Medication Medication Date Date Medication? Clinician (SIG) Name Name albuterol 2021-08 Yes [id number] 2{puff} Inhale 2 [facility] 90 2-28 Puffs ity of mcg/actuati 00:00: every 4 Imer as on inhaler 00 (four) Medical hours as Branch needed for Wheezing or Shortness of Breath. cephalexin 2021-08 No 500mg [id number] Take 1 [facility] (Keflex) 06-17 [id number] capsule s t 500 MG 00:00: 04:59 3D (500 mg Hospita capsule 00 :00 total) by l mouth 3 (three) times a day for 5 days. ondansetron 2021-08 No 4mg Q8H Take 1 [facility] ODT 06-17 tablet (4 st (ZOFRAN-ODT 00:00: 04:59 mg total) Hospita ) 4 MG 00 :00 by mouth l disintegrat every 8 ing tablet (eight) hours as needed for nausea or vomiting for up to 5 days. cephalexin 2021-08 No 500mg [id number] Take 1 [facility] (Keflex) 06-17 [id number] capsule s t 500 MG 00:00: 04:59 [...] to 5 days. cephalexin 2021-08- No 500mg [id number] Take 1 [facility] (Keflex) 0-13 10-19 [id number] capsule s t 500 MG 00:00: 04:59 [...] to 5 days. cephalexin 2021-08- No 500mg [id number] Take 1 [facility] (Keflex) 0-13 10-19 [id number] capsule s t 500 MG 00:00: 04:59 [...] to 5 days. cephalexin 2021-08- No 500mg [id number] Take 1 [facility] (Keflex) 0-13 10-19 [id number] capsule s t 500 MG 00:00: 04:59 3D (500 mg [facility]ospita capsule 00 :00 total) by l mouth 3 (three) times a day for 5 days. ondansetron 2021-08- No 4mg Q8H Take 1 [facility] ODT 0-13 -19 tablet (4 st (ZOFRAN-ODT 00:00: 04:59 mg total) Hospita ) 4 MG 00 :00 by mouth l disintegrat every 8 ing tablet (eight) hours as needed for nausea or vomiting for up to 5 days. cephalexin 2021-08- No 500mg [id number] Take 1 [facility] (Keflex) 0-06-17 [id number] capsule s t 500 MG 00:00: 04:59 3D (500 mg [facility]ospita capsule 00 :00 total) by l mouth 3 (three) times a day for 5 days. ondansetron 2021-08- No 4mg Q8H Take 1 [facility] ODT 0-13 -19 tablet (4 st (ZOFRAN-ODT 00:00: 04:59 mg total) Hospita ) 4 MG 00 :00 by mouth l disintegrat every 8 ing tablet (eight) hours as needed for nausea or vomiting for up to 5 days. potassium No /= 14 Memoria chloride 7-21 Fijian, l 05:55: december Dav 00 dissolve each 20 mEq tablet in 4 oz of water. Allow about 2 minutes for the tablets to disintegra te. Stir before giving to prepare slurry and administer . Please exclude patient's with feeding tube less than 14 [place]ijian (Dobhoff, J-tube, etc) and pediatric and patients. potassium 2021-0 No /= 14 Memoria chloride 7-21 [place]ijian, l 05:55: december [place] 00 dissolve each 20 mEq tablet in 4 oz of water. Allow about 2 minutes for the tablets to disintegra te. Stir before giving to prepare slurry and administer . Please exclude patient's with feeding tube less than 14 [place] (Dobhoff, J-tube, etc) and pediatric and patients. potassium 2021-0 No /= 14 Memoria chloride 7-21 Fijian, l 05:55: december [place] 00 dissolve each 20 mEq tablet in 4 oz of water. Allow about 2 minutes for the tablets to disintegra te. Stir before giving to prepare slurry and administer . Please exclude patient's with feeding tube less than 14 Fijian (Dobhoff, J-tube, etc) and pediatric and patients. potassium 2021-0 No /= 14 Memoria chloride 7-21 Fijian, l 05:55: december [place] 00 dissolve each 20 mEq tablet in 4 oz of water. Allow about 2 minutes for the tablets to disintegra te. Stir before giving to prepare slurry and administer . Please exclude patient's with feeding tube less than 14 [place]ijian (Dobhoff, J-tube, etc) and pediatric and patients. potassium 2022-0 No /= 14 Memoria chloride 7-21 Fijian, l 05:55: december [place] 00 dissolve each 20 mEq tablet in 4 oz of water. Allow about 2 minutes for the tablets to disintegra te. Stir before giving to prepare slurry and administer . Please exclude patient's with feeding tube less than 14 Fijian (Dobhoff, J-tube, etc) and pediatric and patients. potassium 2022-0 No /= 14 Memoria chloride 7-21 Fijian, l 05:55: december Dav 00 dissolve each 20 mEq tablet in 4 oz of water. Allow about 2 minutes for the tablets to disintegra te. Stir before giving to prepare slurry and administer . Please exclude patient's with feeding tube less than 14 [place]ijian (Dobhoff, J-tube, etc) and pediatric and patients. potassium 2022-0 No /= 14 Memoria chloride 7-21 Fijian, l 05:55: december [place] 00 dissolve each 20 mEq tablet in 4 oz of water. Allow about 2 minutes for the tablets to disintegra te. Stir before giving to prepare slurry and administer . Please exclude patient's with feeding tube less than 14 Fijian (Dobhoff, J-tube, etc) and pediatric and patients. potassium 2022-0 No /= 14 Memoria chloride 7-21 Fijian, l 05:55: december [place] 00 dissolve each 20 mEq tablet in 4 oz of water. Allow about 2 minutes for the tablets to disintegra te. Stir before giving to prepare slurry and administer . Please exclude patient's with feeding tube less than 14 Fijian (Dobhoff, J-tube, etc) and pediatric and patients. Tessalon 2022-0 Yes 200 mg = 1 Mem oria 200 mg oral 7-16 cap, PO, l capsule 03:28: TID, X 7 Garrett n 00 day, # 21 cap, 0 Refill(s) Tessalon 2022-0 Yes 200 mg = 1 Mem oria [...] day, # 21 cap, 0 Refill(s) Tessalon 2-0 Yes 200 mg = 1 Mem oria [...] day, # 21 cap, 0 Refill(s) ibuprofen 2021-0 Yes 600 mg = 1 Me moria 600 mg oral 7-16 tab, PO, l tablet 03:27: Q6H, PRN [place] 00 Pain or Fever, Take with food, X 10 day, # 40 tab, 0 Refill(s) ibuprofen 2021-0 Yes 600 mg = 1 Me moria 600 mg oral 7-16 tab, PO, l tablet 03:27: Q6H, PRN Dav 00 Pain or Fever, Take with food, X 10 day, # 40 tab, 0 Refill(s) ibuprofen 2021-0 Yes 600 mg = 1 Me moria 600 mg oral 7-16 tab, PO, l tablet 03:27: Q6H, PRN Dav 00 Pain or Fever, Take with food, X 10 day, # 40 tab, 0 Refill(s) ibuprofen 2021-0 Yes 600 mg = 1 Me moria 600 mg oral 7-16 tab, PO, l tablet 03:27: Q6H, PRN [place] 00 Pain or Fever, Take with food, X 10 day, # 40 tab, 0 Refill(s) ibuprofen 0 Yes 600 mg = 1 Me moria 600 mg oral 7-16 tab, PO, l tablet 03:27: Q6H, PRN [place] 00 Pain or Fever, Take with food, [...] tab, PO, l tablet 03:27: Q6H, PRN [place] 00 Pain or Fever, Take with food, X 10 day, # 40 tab, 0 Refill(s) ibuprofen 0 Yes 600 mg = 1 Me moria 600 mg oral 7-16 tab, PO, l tablet 03:27: Q6H, PRN Dav 00 Pain or Fever, Take with food, X 10 day, # 40 tab, 0 Refill(s) Tylenol No Notes: Max Henok vane 7-16 acetaminop l 00:44: hen 4000 [place] 00 mg/day (4 gm/day). (Same as: Tylenol Extra Strength) Tylenol No Notes: Max Henok vane 7-16 acetaminop l 00:44: hen 4000 [place] 00 mg/day (4 gm/day). (Same as: Tylenol Extra Strength) Tylenol No Notes: Max Henok vane 7-16 acetaminop l 00:44: hen 4000 Dav 00 mg/day (4 gm/day). (Same as: Tylenol Extra Strength) Tylenol No Notes: Max Henok vane 7-16 acetaminop l 00:44: hen 4000 [place] 00 mg/day (4 gm/day). (Same as: Tylenol Extra Strength) Tylenol 2021-0 No Notes: Max Henok vane 7-16 acetaminop l 00:44: hen 4000 [place] 00 mg/day (4 gm/day). (Same as: Tylenol Extra Strength) Tylenol 2021-0 No Notes: Max Henok vane 7-16 acetaminop l 00:44: hen 4000 Dav 00 mg/day (4 gm/day). (Same as: Tylenol Extra Strength) Tylenol 2021-0 No Notes: Max Henok vane 7-16 acetaminop l 00:44: hen 4000 Dav 00 mg/day (4 gm/day). (Same as: Tylenol Extra Strength) Tylenol 2021-0 No Notes: Max Henok vane 7-16 acetaminop [...] times a l day. insulin 2021-0 Yes [id number] Inject Me thodi ASPART 5-[id number] (NovoLOG) 10:40: 3D skin [...] unit/mL 33 nightly. l injection (vial) insulin 2021-0 Yes [id number] Inject Me thodi ASPART 5-[id number] (NovoLOG) 10:40: 3D skin [...] unit/mL 33 nightly. l injection (vial) insulin 2021-0 Yes [id number] Inject Me thodi ASPART 5-[id number] (NovoLOG) 10:40: 3D skin [...] unit/mL 33 nightly. l injection (vial) insulin 2021-0 Yes [id number] Inject Me thodi ASPART 5-[id number] (NovoLOG) 10:40: 3D skin [...] unit/mL 33 nightly. l injection (vial) insulin 2021-0 Yes [id number] Inject Me thodi ASPART 5-[id number] (NovoLOG) 10:40: 3D skin [...] unit/mL 33 nightly. l injection (vial) insulin 2021-0 Yes [id number] Inject Me thodi ASPART 5-[id number] (NovoLOG) 10:40: 3D skin [...] Memoria 1-22 (Same as: l 00:00: Reglan) [place] 00 Reglan No Notes: Memoria 1-22 (Same as: l 00:00: Reglan) Reglan No Notes: Memoria 1-22 (Same as: l 00:00: Reglan) Reglan No Notes: Memoria 1-22 (Same as: l 00:00: Reglan) Dav 00 Reglan No Notes: Memoria 1-22 (Same as: l 00:00: Reglan) Dav 00 Reglan No Notes: Memoria 1-22 (Same as: l 00:00: Reglan) [place] 00 Reglan No Notes: Memoria 1-22 (Same as: l 00:00: Reglan) Sodium No 1,000 mL, Memori a Chloride 09-19 Rate: 25 l 0.154 18:06: ml/hr, Dav MEQ/ML Infuse Injectable over: 40 Solution hr, Route: IV, Dosing Weight 160.909 kg, Total Volume: 1,000, Start date: 09/19/15 12:06:00, Duration: 30 day, Stop date: 10/19/15 12:05:00 Sodium 2015- No 1,000 mL, Memori a Chloride 09-19 Rate: 25 l 0.154 18:06: ml/hr, [place] MEQ/ML 00 Infuse Injectable over: 40 Solution hr, Route: IV, Dosing Weight 160.909 kg, Total Volume: 1,000, Start date: 09/19/15 12:06:00, Duration: 30 day, Stop date: 10/19/15 12:05:00 Sodium 2016-0 No 1,000 mL, Memori a Chloride 1-21 Rate: 25 l 0.154 18:06: ml/hr, Dav MEQ/ML 00 Infuse Injectable over: 40 Solution hr, Route: IV, Dosing Weight 160.909 kg, Total Volume: 1,000, Start date: 09/19/15 12:06:00, Duration: 30 day, Stop date: 10/19/15 12:05:00 Sodium 2016-0 No 1,000 mL, Memori a Chloride 1-21 Rate: 25 l 0.154 18:06: ml/hr, [place] MEQ/ML 00 Infuse Injectable over: 40 Solution hr, Route: IV, Dosing Weight 160.909 kg, Total Volume: 1,000, Start date: 09/19/15 12:06:00, Duration: 30 day, Stop date: 10/19/15 12:05:00 Sodium 2016-0 No 1,000 mL, Memori a Chloride 1-21 Rate: 25 l 0.154 18:06: ml/hr, [place] MEQ/ML 00 Infuse Injectable over: 40 Solution hr, Route: IV, Dosing Weight 160.909 kg, Total Volume: 1,000, Start date: 09/19/15 12:06:00, Duration: 30 day, Stop date: 10/19/15 12:05:00 Sodium 2016-0 No 1,000 mL, Memori a Chloride 1-21 Rate: 25 l 0.154 18:06: ml/hr, [place] MEQ/ML 00 Infuse Injectable over: 40 Solution hr, Route: IV, Dosing Weight 160.909 kg, Total Volume: 1,000, Start date: 09/19/15 12:06:00, Duration: 30 day, Stop date: 10/19/15 12:05:00 Sodium 2016-0 No 1,000 mL, Memori a Chloride 1-21 Rate: 25 l 0.154 18:06: ml/hr, [place] MEQ/ML 00 Infuse Injectable over: 40 Solution hr, Route: IV, Dosing Weight 160.909 kg, Total Volume: 1,000, Start date: 01/21/16 12:06:00, Duration: 30 day, Stop date: 10/19/15 12:05:00 Sodium 2016-0 No 1,000 mL, Memori a Chloride 21 Rate: 25 l 0.154 18:06: ml/hr, [place] MEQ/ML 00 Infuse Injectable over: 40 Solution hr, Route: IV, Dosing Weight 160.909 kg, Total Volume: 1,000, Start date: 09/19/15 12:06:00, Duration: 30 day, Stop date: 10/19/15 12:05:00 thiamine 2016-0 Yes 100 mg = 1 Mem oria 100 mg oral 1-21 tab, PO, l tablet 17:08: Daily, X Dav 14 day, # 14 tab, 0 Refill(s) pantoprazol 2016-0 Yes 40 mg = 1 M emoria e 40 mg 1-21 tab, PO, l oral 17:08: Before [place] enteric 00 Dinner, # coated 30 tab, [...] tab, PO, l Tablet 17:08: Daily, # [place] 00 30 tab, 0 Refill(s) thiamine 2016-0 Yes 100 mg = 1 Mem oria 100 mg oral 1-21 tab, PO, l tablet 17:08: Daily, X Dav 14 day, # 14 tab, 0 Refill(s) pantoprazol 2016-0 Yes 40 mg = 1 M emoria e 40 mg 1-21 tab, PO, l oral 17:08: Before [place] enteric 00 Dinner, # coated 30 tab, [...] tab, PO, l Tablet 17:08: Daily, # [place] 00 30 tab, 0 Refill(s) thiamine 2016-0 Yes 100 mg = 1 Mem oria 100 mg oral 1-21 tab, PO, l tablet 17:08: Daily, X Dav 00 14 day, # 14 tab, 0 Refill(s) pantoprazol 2016-0 Yes 40 mg = 1 M emoria e 40 mg 1-21 tab, PO, l oral 17:08: Before [place] enteric 00 Dinner, # coated 30 tab, [...] tab, PO, l Tablet 17:08: Daily, # [place] 30 tab, 0 Refill(s) thiamine 2016-0 Yes [...] Dav 00 30 tab, 0 Refill(s) thiamine 2016-0 [...] Dav 00 30 tab, 0 Refill(s) thiamine 2016-0 [...] tab, PO, l Tablet 17:08: Daily, # [place] 00 30 tab, 0 Refill(s) thiamine 2016-0 Yes 100 mg = 1 Mem oria 100 mg oral 1-21 tab, PO, l tablet 17:08: Daily, X 14 day, # 14 tab, 0 Refill(s) pantoprazol 2016-0 Yes 40 mg = 1 M emoria e 40 mg 1-21 tab, PO, l oral 17:08: Before [place] enteric 00 Dinner, # coated 30 tab, 0 tablet Refill(s) Promethazin 2016- Yes 12.5 mg = M emoria e 1-21 1 tab, PO, l Hydrochlori 17:08: Q6H, PRN He rmann de 12.5 MG 00 Nausea & Oral Tablet Vomiting, [Phenergan] X 7 day, # 28 tab, 0 Refill(s) Folic Acid Yes 1 mg = 1 Mem oria 1 MG Oral 1-21 tab, PO, l Tablet 17:08: Daily, # [place] 00 30 tab, 0 Refill(s) thiamine Yes 100 mg = 1 Mem oria 100 mg oral 1-21 tab, PO, l tablet 17:08: Daily, X Dav 00 14 day, # 14 tab, 0 Refill(s) pantoprazol Yes 40 mg = 1 M emoria e 40 mg 1-21 tab, PO, l oral 17:08: Before [place] enteric 00 Dinner, # coated 30 tab, [...] # Dav 00 30 tab, 0 Refill(s) Melatonin No 1 mg, Memoria 09-19 Route: PO, l 03:00: Drug form: [place] 00 TAB, Bedtime, Dosing Weight 160.909, kg, Start date: 09/18/15 21:00:00, Duration: 30 day, Stop date: 10/17/15 21:00:00 Lamictal No Notes: Memoria 09-19 (Same l 03:00: as:LaMICta l) Carlieera No 80 mg, Memori a 09-19 Route: PO, l 03:00: Drug form: Dav 00 CAP, Bedtime, Dosing Weight 160.909, kg, Start date: 09/18/15 21:00:00, Duration: 30 day, Stop date: 10/17/15 21:00:00 Melatonin 2015-0 No 1 mg, Memoria 1-21 Route: PO, l 03:00: Drug form: [place] 00 TAB, Bedtime, Dosing Weight 160.909, kg, Start date: 09/18/15 21:00:00, Duration: 30 day, Stop date: 10/17/15 21:00:00 Lamictal 2016-0 No Notes: Memoria 1-21 (Same l 03:00: as:LaMICta [place] 00 l) Strattera 2015-0 No 80 mg, Memori a 1-21 Route: PO, l 03:00: Drug form: [place] 00 CAP, Bedtime, Dosing Weight 160.909, kg, Start date: 09/18/15 21:00:00, Duration: 30 day, Stop date: 10/17/15 21:00:00 Melatonin 2015-0 No 1 mg, Memoria 1-21 Route: PO, l 03:00: Drug form: [place] 00 TAB, Bedtime, Dosing Weight 160.909, kg, Start date: 09/18/15 21:00:00, Duration: 30 day, Stop date: 10/17/15 21:00:00 Lamictal 2016-0 No Notes: Memoria 1-21 (Same l 03:00: as:LaMICta [place] 00 l) Strattera 2015-0 No 80 mg, Memori a 1-21 Route: PO, l 03:00: Drug form: Dav 00 CAP, Bedtime, Dosing Weight 160.909, kg, Start date: 09/18/15 21:00:00, Duration: 30 day, Stop date: 10/17/15 21:00:00 Melatonin 2016-0 No 1 mg, Memoria 1-21 Route: PO, l 03:00: Drug form: Dav 00 TAB, Bedtime, Dosing Weight 160.909, kg, Start date: 09/18/15 21:00:00, Duration: 30 day, Stop date: 10/17/15 21:00:00 Lamictal 2016-0 No Notes: Memoria 1-21 (Same l 03:00: as:LaMICta Dav 00 l) Strattera 2015-0 No 80 mg, Memori a 1-21 Route: PO, l 03:00: Drug form: Dav 00 CAP, Bedtime, Dosing Weight 160.909, kg, Start date: 09/18/15 21:00:00, Duration: 30 day, Stop date: 10/17/15 21:00:00 Melatonin 2015-0 No 1 mg, Memoria 1 Route: PO, l 03:00: Drug form: [place] 00 TAB, Bedtime, Dosing Weight 160.909, kg, Start date: 09/18/15 21:00:00, Duration: 30 day, Stop date: 10/17/15 21:00:00 Lamictal 2016-0 No Notes: Memoria 1- (Same l 03:00: as:LaMICta [place] 00 l) Strattera 2015-0 No 80 mg, Memori a 1-21 Route: PO, l 03:00: Drug form: Dav 00 CAP, Bedtime, Dosing Weight 160.909, kg, Start date: 09/18/15 21:00:00, Duration: 30 day, Stop date: 10/17/15 21:00:00 Melatonin 2015-0 No 1 mg, Memoria 1 Route: PO, l 03:00: Drug form: [place] 00 TAB, Bedtime, Dosing Weight 160.909, kg, Start date: 09/18/15 21:00:00, Duration: 30 day, Stop date: 10/17/15 21:00:00 Lamictal 2016-0 No Notes: [facility]oria 1- (Same l 03:00: as:LaMICta [place] 00 l) Strattera 2015-0 No 80 mg, Memori a 1- Route: PO, l 03:00: Drug form: Dav 00 CAP, Bedtime, Dosing Weight 160.909, kg, Start date: 09/18/15 21:00:00, Duration: 30 day, Stop date: 10/17/15 21:00:00 Melatonin 2015-0 No 1 mg, Memoria 1-21 Route: PO, l 03:00: Drug form: [place] 00 TAB, Bedtime, Dosing Weight 160.909, kg, Start date: 09/18/15 21:00:00, Duration: 30 day, Stop date: 10/17/15 21:00:00 Lamictal 2016-0 No Notes: [facility]oria 1-21 (Same l 03:00: as:LaMICta Dav 00 l) Strattera 2015-0 No 80 mg, Memori a 1-21 Route: PO, l 03:00: Drug form: Dav 00 CAP, Bedtime, Dosing Weight 160.909, kg, Start date: 09/18/15 21:00:00, Duration: 30 day, Stop date: 10/17/15 21:00:00 Melatonin 2015-0 No 1 mg, Memoria 09-19 Route: PO, l 03:00: Drug form: [place] 00 TAB, Bedtime, Dosing Weight 160.909, kg, Start date: 09/18/15 21:00:00, Duration: 30 day, Stop date: 10/17/15 21:00:00 Lamictal 2015-0 No Notes: [facility] 1-21 (Same l 03:00: as:LaMICta [place] 00 l) Strattera 2015-0 No 80 mg, Memori a 1 Route: PO, l 03:00: Drug form: [place] 00 CAP, Bedtime, Dosing Weight 160.909, kg, [...] Memoria 1-20 Tablet l 22:30: should not [place] 00 be chewed or crushed. (Same as: Protonix) Protonix 2015-0 No Notes: [facility]oria 1-20 Tablet l 22:30: should not Dav 00 be chewed or crushed. (Same as: Protonix) Protonix 2015-0 No Notes: [facility] 1-20 Tablet l 22:30: should not [place] 00 be chewed or crushed. (Same as: Protonix) Protonix 2015-0 No Notes: [facility] 1-20 Tablet l 22:30: should not [place] 00 be chewed or crushed. (Same as: Protonix) Protonix No Notes: [facility] 1-20 Tablet l 22:30: should not [place] 00 be chewed or crushed. (Same as: Protonix) Protonix No Notes: [facility] 1-20 Tablet l 22:30: should not Dav 00 be chewed or crushed. (Same as: Protonix) Thiamine No Notes: [facility] 1-20 (Same As: l 20:00: Vitamin Dav 00 B1) Thiamine No Notes: [facility] 1-20 (Same As: l 20:00: Vitamin Dav 00 B1) Thiamine No Notes: Memoria 1-20 (Same As: l 20:00: Vitamin [place] 00 B1) Thiamine No Notes: Memoria 1-20 (Same As: l 20:00: Vitamin [place] 00 B1) Thiamine No Notes: [facility]oria 1-20 (Same As: l 20:00: Vitamin [place] 00 B1) Thiamine No Notes: [facility]oria 1-20 (Same As: l 20:00: Vitamin [place] 00 B1) Thiamine No Notes: [facility] 1-20 (Same As: l 20:00: Vitamin [facility] 00 B1) Thiamine No Notes: [facility] 1-20 (Same As: l 20:00: Vitamin [facility] 00 B1) Folic Acid No Notes: Memor ia 1-20 (Same as: l 19:00: Folvite) [place] Folic Acid No Notes: Memor ia 1-20 (Same as: l 19:00: Folvite) [place] Folic Acid No Notes: Memor ia 1-20 (Same as: l 19:00: Folvite) [place] Folic Acid No Notes: Memor ia 1-20 (Same as: l 19:00: Folvite) Dav Folic Acid No Notes: Memor ia 1-20 (Same as: l 19:00: Folvite) [place] Folic Acid No Notes: Memor ia 1-20 (Same as: l 19:00: Folvite) [place] Folic Acid No Notes: Memor ia 1-20 (Same as: l 19:00: Folvite) Folic Acid 2016-0 No Notes: Memor ia 1-20 (Same as: l 19:00: Folvite) normal 2016-0 No 1,000 mL, Memori a saline 0.9% 1-20 Rate: 125 l IV 1,000 mL 18:38: ml/hr, Herm kailash 00 Infuse over: 8 hr, Route: IV, Dosing Weight 160.909 kg, Total Volume: 1,000, Start date: 09/18/15 12:38:00, Duration: 30 day, Stop date: 10/18/15 12:37:00 normal 2016-0 No 1,000 mL, Memori a saline 0.9% 1-20 Rate: 125 l IV 1,000 mL 18:38: ml/hr, Herm kailash 00 Infuse over: 8 hr, Route: IV, Dosing Weight 160.909 kg, Total Volume: 1,000, Start date: 09/18/15 12:38:00, Duration: 30 day, Stop date: 10/18/15 12:37:00 normal 2016-0 No 1,000 mL, Memori a saline 0.9% 1-20 Rate: 125 l IV 1,000 mL 18:38: ml/hr, Herm kailash 00 Infuse over: 8 hr, Route: IV, Dosing Weight 160.909 kg, Total Volume: 1,000, Start date: 09/18/15 12:38:00, Duration: 30 day, Stop date: 10/18/15 12:37:00 normal 2016-0 No 1,000 mL, Memori a saline 0.9% 1-20 Rate: 125 l IV 1,000 mL 18:38: ml/hr, Herm kailash 00 Infuse over: 8 hr, Route: IV, Dosing Weight 160.909 kg, Total Volume: 1,000, Start date: 09/18/15 12:38:00, Duration: 30 day, Stop date: 10/18/15 12:37:00 normal 2016-0 No 1,000 mL, Memori a saline 0.9% 1-20 Rate: 125 l IV 1,000 mL 18:38: ml/hr, Herm kailash 00 Infuse over: 8 hr, Route: IV, Dosing Weight 160.909 kg, Total Volume: 1,000, Start date: 09/18/15 12:38:00, Duration: 30 day, Stop date: 10/18/15 12:37:00 normal 2016-0 No 1,000 mL, Memori a saline 0.9% 1-20 Rate: 125 l IV 1,000 mL 18:38: ml/hr, Herm kailash 00 Infuse over: 8 hr, Route: IV, Dosing Weight 160.909 kg, Total Volume: 1,000, Start date: 09/18/15 12:38:00, Duration: 30 day, Stop date: 10/18/15 12:37:00 normal 2016-0 No 1,000 mL, Memori a saline 0.9% 1-20 Rate: 125 l IV 1,000 mL 18:38: ml/hr, Herm kailash 00 Infuse over: 8 hr, Route: IV, Dosing Weight 160.909 kg, Total Volume: 1,000, Start date: 09/18/15 12:38:00, Duration: 30 day, Stop date: 10/18/15 12:37:00 normal 2016-0 No 1,000 mL, Memori a saline 0.9% 1-20 Rate: 125 l IV 1,000 mL 18:38: ml/hr, Herm kailash 00 Infuse over: 8 hr, Route: IV, Dosing Weight 160.909 kg, Total Volume: 1,000, Start date: 09/18/15 12:38:00, Duration: 30 day, Stop date: 10/18/15 12:37:00 Prinivil 2015- No Notes: [facility] 1-20 (Same as: l 15:00: Prinivil, [place] Zestril) Lovenox 0 No Notes: [facility] 1-20 (Same as: l 15:00: Lovenox) [place] 00 hydrochloro 0 No Notes: Henok vane [...] vane n 1-20 Route: l 15:00: CHEW, [place] 00 Dosing Weight 160.909, kg, BID, Start date: 09/18/15 9:00:00, Duration: 30 day, Stop date: 10/17/15 17:00:00 Hydrochloro 2015-0 No 1 tab, Henok vane thiazide 25 1-20 Route: PO, l MG / 15:00: Drug Form: Dav Lisinopril 00 TAB, 20 MG Oral Dosing Tablet Weight 160.909, kg, Daily, Start date: 09/18/15 9:00:00, Duration: 30 day, Stop date: 10/17/15 9:00:00 Prinivil 0 No Notes: [facility] 1-20 (Same as: l 15:00: Prinivil, [place] 00 Zestril) Lovenox 0 No Notes: [facility] 1-20 (Same as: l 15:00: Lovenox) [place] 00 hydrochloro 0 No Notes: Henok vane [...] vane n 1-20 Route: l 15:00: CHEW, [place] 00 Dosing Weight 160.909, kg, BID, Start [...] [facility]oria 1-20 (Same as: l 15:00: Prinivil, [place] 00 Zestril) Lovenox No Notes: [facility] 1-20 (Same as: l 15:00: Lovenox) [place] hydrochloro No Notes: Henok vane thiazide 25 [...] vane n 1-20 Route: l 15:00: CHEW, [place] 00 Dosing Weight 160.909, kg, BID, Start date: 09/18/15 9:00:00, Duration: 30 day, Stop date: 10/17/15 17:00:00 Hydrochloro No 1 tab, Henok vane thiazide 25 1-20 Route: PO, l MG / 15:00: Drug Form: Dav Lisinopril 00 TAB, 20 MG Oral Dosing Tablet Weight 160.909, kg, Daily, Start date: 09/18/15 9:00:00, Duration: 30 day, Stop date: 10/17/15 9:00:00 Prinivil 0 No Notes: [facility] 1-20 (Same as: l 15:00: Prinivil, Dav 00 Zestril) Lovenox No Notes: [facility] 1-20 (Same as: l 15:00: Lovenox) Dav hydrochloro No Notes: Henok vane thiazide 25 [...] n 1-20 Route: l 15:00: CHEW, Dav Dosing Weight 160.909, kg, BID, Start date: 09/18/15 9:00:00, Duration: 30 day, Stop date: 10/17/15 17:00:00 Hydrochloro 2015-0 No 1 tab, Henok vane thiazide 25 1-20 Route: PO, l MG / 15:00: Drug Form: Dav Lisinopril 00 TAB, 20 MG Oral Dosing Tablet Weight 160.909, kg, Daily, Start date: 09/18/15 9:00:00, Duration: 30 day, Stop date: 10/17/15 9:00:00 Prinivil 0 No Notes: [facility] 1-20 (Same as: l 15:00: Prinivil, [place] Zestril) Lovenox 0 No Notes: [facility] 1-20 (Same as: l 15:00: Lovenox) [place] 00 hydrochloro 0 No Notes: Henok vane thiazide 25 1-20 (Same as: l mg oral 15:00: Hydrodiuri Herm kailash tablet 00 l) With food. Prilosec No 40 mg, [facility] 1-20 Route: PO, l 15:00: Drug form: [place] DRC, Daily, Dosing Weight 160.909, kg, Start date: 09/18/15 9:00:00, Duration: 30 day, Stop date: 10/17/15 9:00:00 multivitami 2016-0 No 2 tab, Henok vane n 1-20 Route: l 15:00: CHEW, [place] 00 Dosing Weight 160.909, kg, BID, Start date: 09/18/15 9:00:00, Duration: 30 day, Stop date: 10/17/15 17:00:00 Hydrochloro 2016-0 No 1 tab, Henok vane thiazide 25 1-20 Route: PO, l MG / 15:00: Drug Form: Dav Lisinopril 00 TAB, 20 MG Oral Dosing Tablet Weight 160.909, kg, Daily, Start date: 09/18/15 9:00:00, Duration: 30 day, Stop date: 10/17/15 9:00:00 Prinivil No Notes: [facility] 1-20 (Same as: l 15:00: Prinivil, [place] 00 Zestril) Lovenox No Notes: [facility] 1-20 (Same as: l 15:00: Lovenox) [place] hydrochloro No Notes: Henok vane thiazide 25 [...] PO, l MG / 15:00: Drug Form: [place] Lisinopril 00 TAB, 20 MG Oral Dosing Tablet Weight 160.909, kg, Daily, Start date: 09/18/15 9:00:00, Duration: 30 day, Stop date: 10/17/15 9:00:00 Prinivil No Notes: [facility] 1-20 (Same as: l 15:00: Prinivil, [place] 00 Zestril) Lovenox No Notes: [facility] 1-20 (Same as: l 15:00: Lovenox) Dav hydrochloro No Notes: Henok vane thiazide 25 1-20 (Same as: l mg oral 15:00: Hydrodiuri Herm kailash tablet 00 l) With food. Prilosec 2016-0 No 40 mg, [facility] 1-20 Route: PO, l 15:00: Drug form: [facility] 00 DRC, Daily, Dosing Weight 160.909, kg, Start date: 09/18/15 9:00:00, Duration: 30 day, Stop date: 10/17/15 9:00:00 multivitami 2016-0 No 2 tab, Henok vane n 1-20 Route: l 15:00: CHEW, [place] 00 Dosing Weight 160.909, kg, BID, Start date: 09/18/15 9:00:00, Duration: 30 day, Stop date: 10/17/15 17:00:00 Hydrochloro 2016-0 No 1 tab, Henok vane thiazide 25 1-20 Route: PO, l MG / 15:00: Drug Form: Dav Lisinopril 00 TAB, 20 MG Oral Dosing Tablet Weight 160.909, kg, Daily, Start date: 09/18/15 9:00:00, Duration: 30 day, Stop date: 10/17/15 9:00:00 Prinivil 2015-0 No Notes: [facility] 1-20 (Same as: l 15:00: Prinivil, [place] 00 Zestril) Lovenox 2015-0 No Notes: [facility] 1-20 (Same as: l 15:00: Lovenox) Dav 00 hydrochloro 2015-0 No Notes: Henok vane thiazide 25 1-20 (Same as: l mg oral 15:00: Hydrodiuri Herm kailash tablet 00 l) With food. Prilosec 2015-0 No 40 mg, [facility] 1-20 Route: PO, l 15:00: Drug form: Dav 00 DRC, Daily, Dosing Weight 160.909, kg, Start date: 09/18/15 9:00:00, Duration: 30 day, Stop date: 10/17/15 9:00:00 multivitami 2016-0 No 2 tab, Henok vane n 1-20 Route: l 15:00: CHEW, [facility] 00 Dosing Weight 160.909, kg, BID, Start date: 09/18/15 9:00:00, Duration: 30 day, Stop date: 10/17/15 17:00:00 Hydrochloro 2016-0 No 1 tab, Henok vane thiazide 25 1-20 Route: PO, l MG / 15:00: Drug Form: [facility] Lisinopril 00 TAB, 20 MG Oral Dosing Tablet Weight 160.909, kg, Daily, Start date: 09/18/15 9:00:00, Duration: 30 day, Stop date: 10/17/15 9:00:00 *Remind pt 2016-0 No *Remind pt M emoria to bring 1-20 to bring l home med 06:00: home med Brigida nn melatonin 1 00 melatonin mg and 1 mg and multivitami multivitam n in, Reminder, Drug form: MISC, Route: MISC, QSHIFT, 09/18/15 0:00:00, Duration: 30 day, Stop date: 10/17/15 16:00:00 *Remind pt 2016-0 No *Remind pt M emoria to bring 1-20 to bring l home med 06:00: home med Brigida nn melatonin 1 00 melatonin mg and 1 mg and multivitami multivitam n in, Reminder, Drug form: MISC, Route: MISCKEEGAN, 09/18/15 0:00:00, Duration: 30 day, Stop date: 10/17/15 16:00:00 *Remind pt 2016-0 No *Remind pt M emoria to bring 1-20 to bring l home med 06:00: home med Brigida nn melatonin 1 00 melatonin mg and 1 mg and multivitami multivitam n in, Reminder, Drug form: MISC, Route: MISC QSHIFT, 09/18/15 0:00:00, Duration: 30 day, Stop date: 10/17/15 16:00:00 *Remind pt 2016-0 No *Remind pt M emoria to bring 1-20 to bring l home med 06:00: home med Brigida nn melatonin 1 00 melatonin mg and 1 mg and multivitami multivitam n in, Reminder, Drug form: MISC, Route: MISC, QSHIFT, 09/18/15 0:00:00, Duration: 30 day, Stop date: 10/17/15 16:00:00 *Remind pt 2015-0 No *Remind pt M emoria to bring 1-20 to bring l home med 06:00: home med Brigida nn melatonin 1 00 melatonin mg and 1 mg and multivitami multivitam n in, Reminder, Drug form: MISC, Route: MISC, QSHIFT, 09/18/15 0:00:00, Duration: 30 day, Stop date: 10/17/15 16:00:00 *Remind pt 2016-0 No *Remind pt M emoria to bring 1-20 to bring l home med 06:00: home med Brigida nn melatonin 1 00 melatonin mg and 1 mg and multivitami multivitam n in, Reminder, Drug form: MISC, Route: MISC, QSHIFT, 09/18/15 0:00:00, Duration: 30 day, Stop date: 10/17/15 16:00:00 *Remind pt 2016-0 No *Remind pt M emoria to bring 1-20 to bring l home med 06:00: home med Brigida nn melatonin 1 00 melatonin mg and 1 mg and multivitami multivitam n in, Reminder, Drug form: MISC, Route: MISC, QSHIFT, 09/18/15 0:00:00, Duration: 30 day, Stop date: 10/17/15 16:00:00 *Remind pt 2016-0 No *Remind pt M emoria to bring 1-20 to bring l home med 06:00: home med Brigida nn melatonin 1 00 melatonin mg and 1 mg and multivitami multivitam n in, Reminder, Drug form: MISC, Route: MISC, QSHIFT, 09/18/15 0:00:00, Duration: 30 day, Stop date: 10/17/15 16:00:00 Bupropion 2016-0 No Notes: Memori a 1-20 (Same as: l 05:00: Wellbutrin [facility] 00 XL) "Do Not Crush" Bupropion 2015-0 No Notes: Memori a 1-20 (Same as: l 05:00: Wellbutrin [place] 00 XL) "Do Not Crush" Bupropion 2015-0 No Notes: Memori a 1-20 (Same as: l 05:00: Wellbutrin [place] 00 XL) "Do Not Crush" Bupropion 2015-0 No Notes: Memori a 1-20 (Same as: l 05:00: Wellbutrin [place] 00 XL) "Do Not Crush" Bupropion No Notes: Memori a 1-20 (Same as: l 05:00: Wellbutrin [place] 00 XL) "Do Not Crush" Bupropion No [...] [facility] 1-20 (Same as: l 04:26: Reglan) [place] Acetaminoph No Notes: Do M emoria en 1-20 not exceed l 04:26: 4 gm/day. Dav 00 (Same as: Tylenol) Ondansetron No Notes: Henok vane 1-20 (Same as: l 04:26: Zofran) Dav 00 MEDICATION WASTE Product Size: 4 mg Product Wasted: ___ mg Morphine No Notes: [facility]oria 1-20 (Same l 04:26: as:MORPhin [place] 00 e Sulfate) Phenergan No Notes: Do Mem oria 1-20 not give l 04:26: IV push. Dav 00 (Same as: Phenergan) Reglan No Notes: [facility] 1-20 (Same as: l 04:26: Reglan) [place] 00 Acetaminoph No Notes: Do M emoria en 1-20 not exceed l 04:26: 4 gm/day. Dav 00 (Same as: Tylenol) Ondansetron No Notes: Henok vane 1-20 (Same as: l 04:26: Zofran) [place] 00 MEDICATION WASTE Product Size: 4 mg Product Wasted: ___ mg Morphine No Notes: [facility] 1-20 (Same l 04:26: as:MORPhin [facility] 00 e Sulfate) Phenergan No Notes: Do Mem oria 1-20 not give l 04:26: IV push. [place] 00 (Same as: Phenergan) Reglan No Notes: [facility] 1-20 (Same as: l 04:26: Reglan) [place] 00 Acetaminoph No Notes: Do M emoria en 1-20 not exceed l 04:26: 4 gm/day. [place] 00 (Same as: Tylenol) Ondansetron No Notes: Henok vane 1-20 (Same as: l 04:26: Zofran) [place] 00 MEDICATION WASTE Product Size: 4 mg Product Wasted: ___ mg Morphine No Notes: [facility] 1-20 (Same l 04:26: as:MORPhin [place] 00 e Sulfate) Phenergan No Notes: Do Mem oria 1-20 not give l 04:26: IV push. [place] 00 (Same as: Phenergan) Reglan No Notes: [facility]oria 1-20 (Same as: l 04:26: Reglan) Dav 00 Acetaminoph No Notes: Do M emoria en 1-20 not exceed l 04:26: 4 gm/day. [place] 00 (Same as: Tylenol) Ondansetron No Notes: Henok vane 1-20 (Same as: l 04:26: Zofran) Dav 00 MEDICATION WASTE Product Size: 4 mg Product Wasted: ___ mg Morphine No Notes: [facility]oria 1-20 (Same l 04:26: as:MORPhin [place] 00 e Sulfate) Phenergan No Notes: Do Mem oria 1-20 not give l 04:26: IV push. [place] 00 (Same as: Phenergan) Reglan No Notes: [facility]oria 1-20 (Same as: l 04:26: Reglan) Dav 00 Acetaminoph No Notes: Do M emoria en 1-20 not exceed l 04:26: 4 gm/day. Dav 00 (Same as: Tylenol) Ondansetron No Notes: Henok vane 1-20 (Same as: l 04:26: Zofran) [place] 00 MEDICATION WASTE Product Size: 4 mg Product Wasted: ___ mg Morphine No Notes: [facility]oria 1-20 (Same l 04:26: as:MORPhin [place] 00 e Sulfate) Phenergan No Notes: Do Mem oria 1-20 not give l 04:26: IV push. Dav 00 (Same as: Phenergan) Reglan No Notes: [facility]oria 1-20 (Same as: l 04:26: Reglan) [place] Acetaminoph No Notes: Do M emoria en 1-20 not exceed l 04:26: 4 gm/day. [place] 00 (Same as: Tylenol) Ondansetron No Notes: Henok vane 1-20 (Same as: l 04:26: Zofran) Dav 00 MEDICATION WASTE Product Size: 4 mg Product Wasted: ___ mg Morphine No Notes: [facility]oria 1-20 (Same l 04:26: as:MORPhin [facility] 00 e Sulfate) Phenergan No Notes: Do Mem oria 1-20 not give l 04:26: IV push. [place] 00 (Same as: Phenergan) Reglan No Notes: [facility] 1-20 (Same as: l 04:26: Reglan) [place] Acetaminoph No Notes: Do M emoria en 1-20 not exceed l 04:26: 4 gm/day. [place] 00 (Same as: Tylenol) Ondansetron No Notes: Henok vane 1-20 (Same as: l 04:26: Zofran) [place] 00 MEDICATION WASTE Product Size: 4 mg Product Wasted: ___ mg Morphine No Notes: [facility]oria 1-20 (Same l 04:26: as:MORPhin [place] 00 e Sulfate) Phenergan No Notes: Do Mem oria 1-20 not give l 04:26: IV push. [place] 00 (Same as: Phenergan) Reglan No Notes: [facility] 1-20 (Same as: l 04:26: Reglan) [place] 00 Acetaminoph No Notes: Do M emoria en 1-20 not exceed l 04:26: 4 gm/day. Dav 00 (Same as: Tylenol) Ondansetron No Notes: Henok vane 1-20 (Same as: l 04:26: Zofran) [place] 00 MEDICATION WASTE Product Size: 4 mg Product Wasted: ___ mg Morphine No Notes: [facility]oria 1-20 (Same l 04:26: as:MORPhin [facility] 00 e Sulfate) Phenergan No Notes: Do Mem oria 1-20 not give l 04:26: IV push. [place] 00 (Same as: Phenergan) Zofran ODT No Notes: Memor ia 1-20 (Same as: l 04:25: Zofran [place] 00 ODT) Zofran ODT No Notes: Memor ia 1-20 (Same as: l 04:25: Zofran [facility] 00 ODT) Zofran ODT No Notes: Memor ia 1-20 (Same as: l 04:25: Zofran [place] 00 ODT) Zofran ODT No Notes: Memor [...] ia 1-20 (Same as: l 04:25: Zofran [place] 00 ODT) Metoclopram No Notes: Henok vane john 10 MG 1-20 (Same as: l Oral Tablet 04:24: Reglan) Her blanca [Reglan] 00 Take 30 min before meals Metoclopram No Notes: Henok vane john 10 MG 1-20 (Same as: l Oral Tablet 04:24: Reglan) Her blanca [Reglan] 00 Take 30 min before meals Metoclopram 2016-0 No Notes: Henok vane john 10 MG 1-20 (Same as: l Oral Tablet 04:24: Reglan) Her blanca [Reglan] 00 Take 30 min before meals Metoclopram 2016-0 No Notes: Henok vane john 10 MG 1-20 (Same as: l Oral Tablet 04:24: Reglan) Her blanca [Reglan] 00 Take 30 min before meals Metoclopram 2016-0 No Notes: Henok vane john 10 MG 1-20 (Same as: l Oral Tablet 04:24: Reglan) Her blanca [Reglan] 00 Take 30 min before meals Metoclopram 2016-0 No Notes: Henok vane john 10 MG 1-20 (Same as: l Oral Tablet 04:24: Reglan) Her blanca [Reglan] 00 Take 30 min before meals Metoclopram 2015-0 No Notes: Henok vane john 10 MG 1-20 (Same as: l Oral Tablet 04:24: Reglan) Her blanca [Reglan] 00 Take 30 min before meals Metoclopram 2015-0 No Notes: Henok vane john 10 MG 1-20 (Same as: l Oral Tablet 04:24: Reglan) Her blanca [Reglan] 00 Take 30 min before meals 200 ACTUAT 2016-0 No Notes: Memor ia Albuterol 1-20 Same as: l 0.09 04:23: Ventolin Dav MG/ACTUAT 00 HFA Metered Dose Inhaler [Proventil] 200 ACTUAT No Notes: Memor ia Albuterol 1-20 Same as: l 0.09 04:23: Ventolin Dav MG/ACTUAT 00 HFA Metered Dose Inhaler [Proventil] 200 ACTUAT 0 No Notes: Memor ia Albuterol 1-20 Same as: l 0.09 04:23: Ventolin Dav MG/ACTUAT 00 HFA Metered Dose Inhaler [Proventil] 200 ACTUAT 0 No Notes: Memor ia Albuterol 1-20 Same as: l 0.09 04:23: Ventolin [place] MG/ACTUAT 00 HFA Metered Dose Inhaler [Proventil] 200 ACTUAT 0 No Notes: Memor ia Albuterol 1-20 Same as: l 0.09 04:23: Ventolin [place] MG/ACTUAT 00 HFA Metered Dose Inhaler [Proventil] 200 ACTUAT No Notes: Memor ia Albuterol 1-20 Same as: l 0.09 04:23: Ventolin [place] MG/ACTUAT 00 HFA Metered Dose Inhaler [Proventil] 200 ACTUAT No Notes: Memor ia Albuterol 1-20 Same as: l 0.09 04:23: Ventolin [place] MG/ACTUAT 00 HFA Metered Dose Inhaler [Proventil] 200 ACTUAT No Notes: Memor ia Albuterol 1-20 Same as: l 0.09 04:23: Ventolin [place] MG/ACTUAT 00 HFA Metered Dose Inhaler [Proventil] Melatonin No Melatoni Memoria 1mg -Pt's 1-20 n 1mg l own 04:19: -Pt's own [place] medication* 00 medication * , 1 mg, [...] 09/17/15 22:19:00, Stop date: 09/17/15 22:19:00 Melatonin 2015- No Melatoni Memoria 1mg -Pt's 1-20 n 1mg l own 04:19: -Pt's own [place] medication* 00 medication * , 1 mg, 1 tab, Drug form: MISC, Route: PO, ONCE, 09/17/15 22:19:00, Stop date: 09/17/15 22:19:00 Melatonin 2015-0 No Melatoni Memoria 1mg -Pt's 1-20 n 1mg l own 04:19: -Pt's own [place] medication* 00 medication * , 1 mg, 1 tab, Drug form: MISC, Route: PO, ONCE, 09/17/15 22:19:00, Stop date: 09/17/15 22:19:00 Melatonin 2015- No Melatoni Memoria 1mg -Pt's 1-20 n 1mg l own 04:19: -Pt's own [place] medication* 00 medication * , 1 mg, 1 tab, Drug form: MISC, Route: PO, ONCE, 09/17/15 22:19:00, Stop date: 09/17/15 22:19:00 Melatonin No Melatoni Memoria 1mg -Pt's 1-20 n 1mg l own 04:19: -Pt's own [place] medication* 00 medication * , 1 mg, 1 tab, Drug form: MISC, Route: PO, ONCE, 09/17/15 22:19:00, Stop date: 09/17/15 22:19:00 Strattera 2015-0 No 80 mg, Memori a 1-20 Route: PO, l 04:12: ONCE, [place] Dosing Weight 160.909, kg, Start date: 09/17/15 22:12:00, Stop date: 09/17/15 22:12:00 Strattera 2015-0 No 80 mg, Memori a 1-20 Route: PO, l 04:12: ONCE, Dav Dosing Weight 160.909, kg, Start date: 09/17/15 22:12:00, Stop date: 09/17/15 22:12:00 Strattera 2016-0 No 80 mg, Memori a 1-20 Route: PO, l 04:12: ONCE, [place] 00 Dosing Weight 160.909, kg, Start date: 09/17/15 22:12:00, Stop date: 09/17/15 22:12:00 Strattera 2016-0 No 80 mg, Memori a 1-20 Route: PO, l 04:12: ONCE, [place] 00 Dosing Weight 160.909, kg, Start date: [...] a 1-20 Route: PO, l 04:12: ONCE, [place] 00 Dosing Weight 160.909, kg, Start date: 09/17/15 22:12:00, Stop date: 09/17/15 22:12:00 Melatonin 2016-0 No 1 mg, Memoria 1-20 Route: PO, l 04:11: ONCE, Dav 00 Dosing Weight 160.909, kg, Start date: 09/17/15 22:11:00, Stop date: 09/17/15 22:11:00 lamotrigine 2016-0 No Notes: Henok vane 150 MG Oral 1-20 (Same l Tablet 04:11: as:LaMICta Brigida nn l) Melatonin No 1 mg, [facility] 1-20 Route: PO, l 04:11: ONCE, Dosing Weight 160.909, kg, Start date: 09/17/15 22:11:00, Stop date: 09/17/15 22:11:00 lamotrigine 2016-0 No Notes: Henok vane 150 MG Oral 1-20 (Same l Tablet 04:11: as:LaMICta Briigda nn l) Melatonin No 1 mg, Memoria [...] 1-20 (Same l Tablet 04:11: as:LaMICta Brigida l) Melatonin No 1 mg, [facility] 1-20 Route: PO, l 04:11: ONCE, Dosing Weight 160.909, kg, Start date: 09/17/15 22:11:00, Stop date: 09/17/15 22:11:00 lamotrigine No Notes: Henok vane 150 MG Oral 1-20 (Same l Tablet 04:11: as:LaMICta Brigida nn 00 l) 200 ACTUAT Yes 2 puff, Henok vane Albuterol 1-20 INHALATION l 0.09 04:10: , QID, PRN [place] MG/ACTUAT 00 as needed Metered for Dose wheezing, Inhaler 0 [Proventil] Refill(s) 200 ACTUAT Yes 2 puff, Henok vane Albuterol 1-20 INHALATION l 0.09 04:10: , QID, PRN Dav MG/ACTUAT 00 as needed Metered for Dose wheezing, Inhaler 0 [Proventil] Refill(s) 200 ACTUAT Yes 2 puff, Henok vane Albuterol 1-20 INHALATION l 0.09 04:10: , QID, PRN [place] MG/ACTUAT 00 as needed Metered for Dose wheezing, Inhaler 0 [Proventil] Refill(s) 200 ACTUAT Yes 2 puff, Henok vane Albuterol 1-20 INHALATION l 0.09 04:10: , QID, PRN Dav MG/ACTUAT 00 as needed Metered for Dose wheezing, Inhaler 0 [Proventil] Refill(s) 200 ACTUAT Yes 2 puff, Henok vane Albuterol 1-20 INHALATION l 0.09 04:10: , QID, PRN [place] MG/ACTUAT 00 as needed Metered for Dose wheezing, Inhaler 0 [Proventil] Refill(s) 200 ACTUAT 20160 Yes 2 puff, Henok vane Albuterol 1-20 INHALATION l 0.09 04:10: , QID, PRN Dav MG/ACTUAT 00 as needed Metered for Dose wheezing, Inhaler 0 [Proventil] Refill(s) 200 ACTUAT 2016 Yes 2 puff, Henok vane Albuterol 1-20 INHALATION l 0.09 04:10: , QID, PRN Dav MG/ACTUAT 00 as needed Metered for Dose wheezing, Inhaler 0 [Proventil] Refill(s) 200 ACTUAT Yes 2 puff, Henok vane Albuterol 1-20 INHALATION l 0.09 04:10: , QID, PRN Dav MG/ACTUAT 00 as needed Metered for Dose wheezing, Inhaler 0 [Proventil] Refill(s) multivitami 20160 Yes 2 tab, Henok vane n 1-20 CHEW, BID, l 04:08: 0 Dav 00 Refill(s) multivitami 20160 Yes 2 tab, Henok vane n 1-20 CHEW, BID, l 04:08: 0 Dav 00 Refill(s) multivitami 20160 Yes 2 tab, Henok vane n 1-20 CHEW, BID, l 04:08: 0 Dav 00 Refill(s) multivitami 20160 Yes 2 tab, Henok vane n 1-20 CHEW, BID, l 04:08: 0 Dav 00 Refill(s) multivitami 20160 Yes 2 tab, Henok vane n 1-20 CHEW, BID, l 04:08: 0 Dav 00 Refill(s) multivitami 2016-0 Yes 2 tab, Henok vane n 1-20 CHEW, BID, l 04:08: 0 [place] 00 Refill(s) multivitami 20160 Yes 2 tab, Henok vane n 1-20 CHEW, BID, l 04:08: 0 [place] 00 Refill(s) multivitami 2016-0 Yes 2 tab, Henok vane n 1-20 CHEW, BID, l 04:08: 0 [place] 00 Refill(s) Ondansetron 2016-0 Yes 8 mg = 1 Me moria 8 MG 1-20 tab, PO, l Disintegrat 04:07: Q8H, PRN He rmann ing Tablet 00 as needed [Zofran] for nausea/vom iting, 0 Refill(s) Metoclopram 2016-0 Yes 10 mg = 1 M emoria john 10 MG 1-20 tab, PO, l Oral Tablet 04:07: Q6H, PRN He rmann [Reglan] 00 Nausea & Vomiting, 0 Refill(s) Ondansetron 2016-0 Yes 8 mg = 1 Me moria 8 MG 1-20 tab, PO, l Disintegrat 04:07: Q8H, PRN He rmann ing Tablet 00 as needed [Zofran] for nausea/vom iting, 0 Refill(s) Metoclopram 2016-0 Yes 10 mg = 1 M emoria john 10 MG 1-20 tab, PO, l Oral Tablet 04:07: Q6H, PRN He rmann [Reglan] 00 Nausea & Vomiting, 0 Refill(s) Ondansetron 2016-0 Yes 8 mg = 1 Me moria 8 MG 1-20 tab, PO, l Disintegrat 04:07: Q8H, PRN He rmann ing Tablet 00 as needed [Zofran] for nausea/vom iting, 0 Refill(s) Metoclopram 2016-0 Yes 10 mg = 1 M emoria john 10 MG 1-20 tab, PO, l Oral Tablet 04:07: Q6H, PRN He rmann [Reglan] 00 Nausea & Vomiting, 0 Refill(s) Ondansetron 2016-0 Yes 8 mg = 1 Me moria 8 MG 1-20 tab, PO, l Disintegrat 04:07: Q8H, PRN He rmann ing Tablet 00 as needed [Zofran] for nausea/vom iting, 0 Refill(s) Metoclopram 2016-0 Yes 10 mg = 1 M emoria john 10 MG 1-20 tab, PO, l Oral Tablet 04:07: Q6H, PRN He rmann [Reglan] 00 Nausea & Vomiting, 0 Refill(s) Ondansetron 2016-0 Yes 8 mg = 1 Me moria 8 MG 1-20 tab, PO, l Disintegrat 04:07: Q8H, PRN He rmann ing Tablet 00 as needed [Zofran] for nausea/vom iting, 0 Refill(s) Metoclopram 2016-0 Yes 10 mg = 1 M emoria [...] [Zofran] for nausea/vom iting, 0 Refill(s) Metoclopram 20160 Yes 10 mg = 1 M emoria john 10 MG 1-20 tab, PO, l Oral Tablet 04:07: Q6H, PRN He rmann [Reglan] 00 Nausea & Vomiting, 0 Refill(s) Ondansetron 0 Yes 8 mg = 1 Me moria 8 MG 1-20 tab, PO, l Disintegrat 04:07: Q8H, PRN He rmann ing Tablet 00 as needed [Zofran] for nausea/vom iting, 0 Refill(s) Metoclopram 2015-0 Yes 10 mg = 1 M emoria [...] Memoria 1-20 (Same as: l 03:49: Reglan) [place] Reglan No Notes: Memoria 1-20 (Same as: l 03:49: Reglan) [place] Reglan No Notes: Memoria 1-20 (Same as: l 03:49: Reglan) [facility] Reglan No Notes: Memoria 1-20 (Same as: l 03:49: Reglan) [place] 00 Reglan No Notes: Memoria 1-20 (Same as: l 03:49: Reglan) [place] 00 Reglan No Notes: Memoria 1-20 (Same as: l 03:49: Reglan) [facility] 00 Reglan No Notes: Memoria 1-20 (Same as: l 03:49: Reglan) [place] 00 Reglan No Notes: Memoria 1-20 (Same as: l 03:49: Reglan) [place] 00 Ondansetron No Notes: Henok vane 4 MG 1-20 (Same as: l Disintegrat 00:07: Zofran Herm kailash ing Tablet 00 ODT) Saline No Notes: Memoria Flush 0.9% 1-20 (Same as: l 00:07: BD [place] 00 Posiflush) Ondansetron No Notes: Henok vane 4 MG 1-20 (Same as: l Disintegrat 00:07: Zofran Herm kailash ing Tablet 00 ODT) Saline No Notes: Memoria Flush 0.9% 1-20 (Same as: l 00:07: BD [place] 00 Posiflush) Ondansetron No Notes: Henok vane [...] 0.9% 1-20 (Same as: l 00:07: BD [place] 00 Posiflush) Ondansetron No Notes: Henok vane [...] 0.9% 1-20 (Same as: l 00:07: BD [place] 00 Posiflush) Ondansetron No Notes: Henok vane [...] 0.9% 1-20 (Same as: l 00:07: BD [place] 00 Posiflush) Ondansetron 2014-08 No 4 mg = 1 Me moria 4 MG 2-28 tab, PO, l Disintegrat 22:06: TID, Garrett n ing Tablet 00 Dissolve [Zofran] tab under tongue, X 1 day, # 12 tab, 0 Refill(s) Acetaminoph 2014-08 Yes 11.25 mL, M emoria en 20 MG/ML 2-28 PO, Q6H, # l / 22:06: 60 mL, 0 [place] Hydrocodone 00 Refill(s) Bitartrate 0.667 MG/ML Oral [...] # l / 22:06: 60 mL, 0 [place] Hydrocodone 00 Refill(s) Bitartrate 0.667 MG/ML Oral [...] # l / 22:06: 60 mL, 0 [place] Hydrocodone 00 Refill(s) Bitartrate 0.667 MG/ML Oral [...] # l / 22:06: 60 mL, 0 [place] Hydrocodone 00 Refill(s) Bitartrate 0.667 MG/ML Oral [...] day, # 12 tab, 0 Refill(s) Acetaminoph 2015-1 Yes 11.25 mL, M emoria en 20 MG/ML 2-28 PO, Q6H, # l / 22:06: 60 mL, 0 [place] Hydrocodone 00 Refill(s) Bitartrate 0.667 MG/ML Oral [...] 08/26/15 14:44:00, Stop date: 08/26/15 14:44:00 ketOROLAC 2014- No 15 mg, Memori a 15 mg/mL 2-28 Route: l injectable 20:44: IVP, Drug He rmann solution 00 form: INJ, ONCE, Dosing Weight 162.273, kg, Priority: STAT, Start date: 08/26/15 14:44:00, Stop date: 08/26/15 14:44:00 ketOROLAC 2014- No 15 mg, Memori a 15 mg/mL 2-28 Route: l injectable 20:44: IVP, Drug He rmann solution 00 form: INJ, ONCE, Dosing Weight 162.273, kg, Priority: STAT, Start date: 08/26/15 14:44:00, Stop date: 08/26/15 14:44:00 ketOROLAC 2014- No 15 mg, Memori a 15 mg/mL 2- Route: l injectable 20:44: IVP, Drug He rmann solution 00 form: INJ, ONCE, Dosing Weight 162.273, kg, Priority: STAT, Start date: 08/26/15 14:44:00, Stop date: 08/26/15 14:44:00 ketOROLAC 2014- No 15 mg, Memori a 15 mg/mL 2- Route: l injectable 20:44: IVP, Drug He rmann solution 00 form: INJ, ONCE, Dosing Weight 162.273, kg, Priority: STAT, Start date: 08/26/15 14:44:00, Stop date: 08/26/15 14:44:00 Morphine 2014- No 6 mg, Memoria 2-28 Route: l 18:38: IVP, Drug [place] 00 form: INJ, ONCE, Dosing Weight 162.273, kg, Priority: STAT, Start date: 08/26/15 12:38:00, Stop date: 08/26/15 12:38:00 Morphine 2014- No 6 mg, Memoria 2-28 Route: l 18:38: IVP, Drug [place] 00 form: INJ, ONCE, Dosing Weight 162.273, kg, Priority: STAT, Start date: 08/26/15 12:38:00, Stop date: 08/26/15 12:38:00 Morphine 2014-1 No 6 mg, Memoria 2-28 Route: l 18:38: IVP, Drug [place] 00 form: INJ, ONCE, Dosing Weight 162.273, [...] Memoria 2-28 Route: l 18:38: IVP, Drug [place] 00 form: INJ, ONCE, Dosing Weight 162.273, kg, Priority: STAT, Start date: 08/26/15 12:38:00, Stop date: 08/26/15 12:38:00 Morphine 2014- No 6 mg, Memoria 2-28 Route: l 18:38: IVP, Drug [facility] 00 form: INJ, ONCE, Dosing Weight 162.273, kg, Priority: STAT, Start date: 08/26/15 12:38:00, Stop date: 08/26/15 12:38:00 Zofran 2014- No 4 mg, Memoria 2-28 Route: l 18:37: IVP, Drug [place] 00 form: INJ, ONCE, Dosing Weight 162.273, [...] Memoria 2-28 Route: l 18:37: IVP, Drug [place] 00 form: INJ, ONCE, Dosing Weight 162.273, kg, Priority: STAT, Start date: 08/26/15 12:37:00, Stop date: 08/26/15 12:37:00 Zofran 2014- No 4 mg, Memoria 2-28 Route: l 18:37: IVP, Drug [place] 00 form: INJ, ONCE, Dosing Weight 162.273, kg, Priority: STAT, Start date: 08/26/15 12:37:00, Stop date: 08/26/15 12:37:00 Zofran 2014- No 4 mg, Memoria 2-28 Route: l 18:37: IVP, Drug [place] 00 form: INJ, ONCE, Dosing Weight 162.273, kg, Priority: STAT, Start date: 08/26/15 12:37:00, Stop date: 08/26/15 12:37:00 Zofran 2014- No 4 mg, Memoria 2-28 Route: l 18:37: IVP, Drug [facility] 00 form: INJ, ONCE, Dosing Weight 162.273, kg, Priority: STAT, Start date: 08/26/15 12:37:00, Stop date: 08/26/15 12:37:00 Sodium 2014-1 No 1,000 mL, Memori a Chloride 2-28 1,000 l 0.154 16:47: ml/hr, [facility] MEQ/ML 00 Infuse Injectable Over: 1 Solution Hour, Route: IV, ONCE, Priority: STAT, Dosing Weight 162.273 kg, Start date: 08/26/15 10:47:00, Duration: 1 doses or times, Stop date: 08/26/15 10:47:00 Sodium 2014-1 No 1,000 mL, Memori a Chloride 2-28 1,000 l 0.154 16:47: ml/hr, [place] MEQ/ML 00 Infuse Injectable Over: 1 Solution [...] Chloride 2-28 1,000 l 0.154 16:47: ml/hr, [place] MEQ/ML 00 Infuse Injectable Over: 1 Solution Hour, Route: IV, ONCE, Priority: STAT, Dosing Weight 162.273 kg, Start date: 08/26/15 10:47:00, Duration: 1 doses or times, Stop date: 08/26/15 10:47:00 Sodium 2015-1 No 1,000 mL, Memori a Chloride 2-28 1,000 l 0.154 16:47: ml/hr, [facility] MEQ/ML 00 Infuse Injectable Over: 1 Solution Hour, Route: IV, ONCE, Priority: STAT, Dosing Weight 162.273 kg, Start date: 08/26/15 10:47:00, Duration: 1 doses or times, Stop date: 08/26/15 10:47:00 Sodium 2014-08 No 1,000 mL, Memori a Chloride 2-28 1,000 l 0.154 16:47: ml/hr, [facility] MEQ/ML 00 Infuse Injectable Over: 1 Solution Hour, Route: IV, ONCE, Priority: STAT, Dosing Weight 162.273 kg, Start date: 08/26/15 10:47:00, Duration: 1 doses or times, Stop date: 08/26/15 10:47:00 Sodium 2014-08 No 1,000 mL, Memori a Chloride 2-28 1,000 l 0.154 16:47: ml/hr, [place] MEQ/ML 00 Infuse Injectable Over: 1 Solution Hour, Route: IV, ONCE, Priority: STAT, Dosing Weight 162.273 kg, Start date: 08/26/15 10:47:00, Duration: 1 doses or times, Stop date: 08/26/15 10:47:00 Reglan 2014-08 No Notes: Memoria 2-19 (Same as: l 06:00: Reglan) [place] 00 Take 30 min before meals Reglan 2014-08 No Notes: Memoria 2-19 (Same as: l 06:00: Reglan) [place] 00 Take 30 min before meals Reglan 2014-08 No Notes: Memoria 2-19 (Same as: l 06:00: Reglan) [facility] 00 Take 30 min before meals Reglan 2014-08 No Notes: Memoria 2-19 (Same as: l 06:00: Reglan) [facility] 00 Take 30 min before meals Reglan 2014-08 No Notes: Memoria 2-19 (Same as: l 06:00: Reglan) [place] 00 Take 30 min before meals Reglan 2014-08 No Notes: Memoria 2-19 (Same as: l 06:00: Reglan) [place] 00 Take 30 min before meals Reglan 2014-08 No Notes: Memoria 2-19 (Same as: l 06:00: Reglan) [facility] 00 Take 30 min before meals Reglan 2014-08 No Notes: Memoria 2-19 (Same as: l 06:00: Reglan) [place] 00 Take 30 min before meals Pepcid 2014-08 No Notes: Memoria 2-19 (Same as: l 03:00: Pepcid) [facility] 00 Pepcid 2014-08 No Notes: [facility]oria 2-19 (Same as: l 03:00: Pepcid) [place] 00 Pepcid 2014-08 No Notes: Memoria 2-19 (Same as: l 03:00: Pepcid) [facility] Pepcid 2014-08 No Notes: Memoria 2-19 (Same as: l 03:00: Pepcid) [place] Pepcid 2014-08 No Notes: Memoria 2-19 (Same as: l 03:00: Pepcid) [place] Pepcid 2014-08 No Notes: Memoria 2-19 (Same as: l 03:00: Pepcid) [place] Pepcid 2014-08 No Notes: Memoria 2-19 (Same as: l 03:00: Pepcid) [place] 00 Pepcid 2014-08 No Notes: [facility] 2-19 (Same as: l 03:00: Pepcid) [place] 00 Acetaminoph 2014-08 No Notes: Do M emoria en 20 MG/ML 2-18 not exceed l / 17:48: 4gm/day of [facility] Hydrocodone 00 acetaminop Bitartrate hen. (Same 0.667 MG/ML as: Oral Zolvit) Solution Acetaminoph 2014-08 No Notes: Do M emoria en 20 MG/ML 2-18 not exceed l / 17:48: 4gm/day of [place] Hydrocodone 00 acetaminop Bitartrate hen. (Same 0.667 MG/ML as: Oral Zolvit) Solution Acetaminoph 2014-08 No Notes: Do M emoria en 20 MG/ML 2-18 not exceed l / 17:48: 4gm/day of [facility] Hydrocodone 00 acetaminop Bitartrate hen. (Same 0.667 MG/ML as: Oral Zolvit) Solution Acetaminoph 2014-08 No Notes: Do M emoria en 20 MG/ML 2-18 not exceed l / 17:48: 4gm/day of [place] Hydrocodone 00 acetaminop Bitartrate hen. (Same 0.667 MG/ML as: Oral Zolvit) Solution Acetaminoph 2014-08 No Notes: Do M emoria en 20 MG/ML 2-18 not exceed l / 17:48: 4gm/day of [place] Hydrocodone 00 acetaminop Bitartrate hen. (Same 0.667 MG/ML as: Oral Zolvit) Solution Acetaminoph 2014-08 No Notes: Do M emoria en 20 MG/ML 2-18 not exceed l / 17:48: 4gm/day of [place] Hydrocodone 00 acetaminop Bitartrate hen. (Same 0.667 MG/ML as: Oral Zolvit) Solution Acetaminoph 2014-08 No Notes: Do M emoria en 20 MG/ML 2-18 not exceed l / 17:48: 4gm/day of [facility] Hydrocodone 00 acetaminop Bitartrate hen. (Same 0.667 MG/ML as: Oral Zolvit) Solution Acetaminoph 2014-08 No Notes: Do M emoria en 20 MG/ML 2-18 not exceed l / 17:48: 4gm/day of [place] Hydrocodone 00 acetaminop Bitartrate hen. (Same 0.667 MG/ML as: Oral Zolvit) Solution Wellbutrin 2014-08 No Notes: Memor ia 2-18 (Same As: l 15:00: Wellbutrin [place] 00 ) Prinivil 2014-08 No Notes: Memoria [...] PO, l MG / 15:00: Drug Form: [place] Lisinopril 00 TAB, 20 MG Oral Dosing [...] PO, l MG / 15:00: Drug Form: [place] Lisinopril 00 TAB, 20 MG Oral Dosing Tablet Weight 168.636, kg, Daily, Start date: 08/16/15 9:00:00, Duration: 30 day, Stop date: 09/14/15 9:00:00 Wellbutrin 2014-08 No Notes: Memor ia 2-18 (Same As: l 15:00: Wellbutrin [place] 00 ) Prinivil 2014-08 No Notes: Memoria [...] ia 2-18 (Same As: l 15:00: Wellbutrin [place] 00 ) Prinivil 2014-08 No Notes: [facility] 2-18 (Same as: l 15:00: Prinivil, [place] 00 Zestril) hydrochloro 2014-08 No Notes: Henok [...] ia 2-18 (Same As: l 15:00: Wellbutrin [place] 00 ) Prinivil 2014-08 No Notes: Memoria [...] [facility]oria 2-18 (Same as: l 15:00: Prinivil, [place] 00 Zestril) hydrochloro 2014-08 No Notes: Henok [...] ia 2-18 (Same as: l 05:00: Lovenox) [place] 00 Enoxaparin 2014-08 No Notes: Memor ia 2-18 (Same as: l 05:00: Lovenox) [facility] 00 Enoxaparin 2014-08 No Notes: Memor ia 2-18 (Same as: l 05:00: Lovenox) [place] 00 Enoxaparin 2014-08 No Notes: Memor ia 2-18 (Same as: l 05:00: Lovenox) [place] 00 Enoxaparin 2014-08 No Notes: Memor ia 2-18 (Same as: l 05:00: Lovenox) [facility] 00 Lamictal 2014-08 No Notes: Memoria 2-18 (Same l 03:00: as:LaMICta [place] 00 l) Strattera 2014-08 No 80 mg, Memori a 2-18 Route: PO, l 03:00: Drug form: [facility] 00 CAP, Bedtime, Dosing Weight 168.636, kg, Start date: 08/15/15 21:00:00, Duration: 30 day, Stop date: 09/13/15 21:00:00 Famotidine 2014-08 No Notes: Memor ia 2-18 (Same as: l 03:00: Pepcid) [place] 00 Can be dilute in 5-10cc NS [...] 2-18 Route: PO, l 03:00: Drug form: [place] 00 CAP, Bedtime, Dosing Weight 168.636, kg, Start date: 08/15/15 21:00:00, Duration: 30 day, Stop date: 09/13/15 21:00:00 Famotidine 2014-08 No Notes: Memor ia 2-18 (Same as: l 03:00: Pepcid) [place] 00 Can be dilute in 5-10cc NS IVP: Slow IV push over at least 2 minutes. Lamictal 2014-08 No Notes: Memoria 2-18 (Same l 03:00: as:[place] 00 l) Strattera 2014-08 No 80 mg, Memori a 2-18 Route: PO, l 03:00: Drug form: [place] 00 CAP, Bedtime, Dosing Weight 168.636, kg, Start date: 08/15/15 21:00:00, Duration: 30 day, Stop date: 09/13/15 21:00:00 Famotidine 2014-08 No Notes: Memor ia 2-18 (Same as: l 03:00: Pepcid) [place] 00 Can be dilute in 5-10cc NS [...] ia 2-18 (Same as: l 03:00: Pepcid) [place] 00 Can be dilute in 5-10cc NS IVP: Slow IV push over at least 2 minutes. Lamictal 2014-08 No Notes: [facility]oria 2-18 (Same l 03:00: as:LaMICta [place] 00 l) Strattera 2014-08 No 80 mg, Memori a 2-18 Route: PO, l 03:00: Drug form: [place] 00 CAP, Bedtime, Dosing Weight 168.636, kg, Start date: 08/15/15 21:00:00, Duration: 30 day, Stop date: 09/13/15 21:00:00 Famotidine 2014-08 No Notes: Memor ia 2-18 (Same as: l 03:00: Pepcid) [facility] 00 Can be dilute in 5-10cc NS IVP: Slow IV push over at least 2 minutes. Lamictal 2014-08 No Notes: [facility]oria 2-18 (Same l 03:00: as:LaMIC[place] 00 l) Strattera 2014-08 No 80 mg, Memori a 2-18 Route: PO, l 03:00: Drug form: [place] 00 CAP, Bedtime, Dosing Weight 168.636, kg, Start date: 08/15/15 21:00:00, Duration: 30 day, Stop date: 09/13/15 21:00:00 Famotidine 2014-08 No Notes: Memor ia 2-18 (Same as: l 03:00: Pepcid) [facility] 00 Can be dilute in 5-10cc NS IVP: Slow IV push over at least 2 minutes. Famotidine 2014-08 No Notes: Memor ia 2-18 (Same as: l 03:00: Pepcid) [place] 00 Can be dilute in 5-10cc NS IVP: Slow IV push over at least 2 minutes. Lamictal 2014-08 No Notes: [facility] 2-18 (Same l 03:00: as:[place] 00 l) Strattera 2014-08 No 80 mg, Memori a 2-18 Route: PO, l 03:00: Drug form: [facility] 00 CAP, Bedtime, Dosing Weight 168.636, kg, Start date: 08/15/15 21:00:00, Duration: 30 day, Stop date: 09/13/15 21:00:00 Metoclopram 2014-08 No Notes: Henok vane john 2-17 (Same as: l 22:00: Reglan) [place] Metoclopram 2014-08 No Notes: Henok vane john 2-17 (Same as: l 22:00: Reglan) [facility] Metoclopram 2014-08 No Notes: Henok vane john 2-17 (Same as: l 22:00: Reglan) [facility] 00 Metoclopram 2014-08 No Notes: Henok vane john 2-17 (Same as: l 22:00: Reglan) Metoclopram 2014-08 No Notes: Henok vane john 2-17 (Same as: l 22:00: Reglan) Metoclopram 2014-08 No Notes: Hneok vane john 2-17 (Same as: l 22:00: Reglan) Metoclopram 2014-08 No Notes: Henok vane john 2-17 (Same as: l 22:00: Reglan) Metoclopram 2014-08 No Notes: Henok vane john 2-17 (Same as: l 22:00: Reglan) Sucralfate 2014-08 No Notes: Memor ia 100 MG/ML 2-17 Enteral l Oral 19:00: feeds may [facility] Suspension 00 interfere [Carafate] with the absorption of this medication . Shake well. Take 1 hr before or 2 hrs after antacids, dairy pdt, minerals & meals. (Same As: Carafate) Sucralfate 2014-08 No Notes: Memor ia 100 MG/ML 2-17 Enteral l Oral 19:00: feeds may [place] Suspension 00 interfere [Carafate] with the absorption [...] 2-17 Enteral l Oral 19:00: feeds may [place] Suspension 00 interfere [Carafate] with the absorption of this medication . Shake well. Take 1 hr before or 2 hrs after antacids, dairy pdt, minerals & meals. (Same As: Carafate) Sucralfate 2014-08 No Notes: Memor ia 100 MG/ML 2-17 Enteral l Oral 19:00: feeds may [place] Suspension 00 interfere [Carafate] with the absorption of this medication . Shake well. Take 1 hr before or 2 hrs after antacids, dairy pdt, minerals & meals. (Same As: Carafate) Ondansetron 2014-08 No Notes: Henok vane 2-17 (Same as: l 18:00: Zofran) [facility] 00 MEDICATION WASTE Product Size: 4 mg Product Wasted: ___ mg Ondansetron 2014-08 No Notes: Henok vane 2-17 (Same as: l 18:00: Zofran) [facility] 00 MEDICATION WASTE Product Size: 4 mg Product Wasted: ___ mg Ondansetron 2014-08 No Notes: Henok vane 2-17 (Same as: l 18:00: Zofran) [facility] 00 MEDICATION WASTE Product Size: 4 mg Product Wasted: ___ mg Ondansetron 2014-08 No Notes: Henok vane 2-17 (Same as: l 18:00: Zofran) [place] 00 MEDICATION WASTE Product Size: [...] 2014-08 No 1,000 mL, M emoria mL 10-16 Rate: 125 l 16:34: ml/hr, Infuse over: [...] 2-17 Rate: 125 l 0.0014 16:34: ml/hr, [place] MEQ/ML / 00 Infuse Potassium over: 8 [...] 2-17 not exceed l 16:34: 4 gm/day. [place] 00 (Same as: Tylenol) Metoprolol 2014-08 No [...] 2-17 0.5 mL, l 16:34: Route: IV, [place] 00 Drug form: INJ, Q3H, Dosing Weight [...] 0.5 mL, l 16:34: Route: IV, Dav Drug form: INJ, Q3H, Dosing Weight 175.909, [...] 2-17 not exceed l 16:34: 4 gm/day. [place] 00 (Same as: Tylenol) Metoprolol 2014-08 No [...] 2-17 Rate: 125 l 0.0014 16:34: ml/hr, [place] MEQ/ML / 00 Infuse Potassium over: 8 [...] Memor ia 2-17 Route: l 16:23: IVP, [place] 00 Q2MIN, Dosing Weight 168.864, kg, PRN Narcotic Reversal, Start date: 08/15/15 10:23:00, Duration: 8 doses or times, Stop date: Limited # of times Ondansetron 2014-08 No 4 mg, Memor ia 2-17 Route: l 16:23: IVP, ONCE, [place] 00 Dosing Weight 168.864, kg, PRN Nausea & Vomiting, Start date: 08/15/15 10:23:00 Promethazin 2014-08 No 6.25 mg, Me moria e 2-17 Route: l 16:23: IVPB, [facility] 00 ONCE, Dosing Weight 168.864, kg, PRN Nausea & Vomiting, Start date: 08/15/15 10:23:00 Flumazenil 2014-08 No 0.2 mg, Henok vane 2-17 Route: l 16:23: IVP, PRN, [place] 00 Dosing Weight 168.864, kg, PRN Benzodiaze pine Reversal, Initial dose, Start date: 08/15/15 10:23:00, Duration: 30 day, Stop date: 09/14/15 10:22:00 Fentanyl 2014-08 No 25 Memoria 2-17 microgram, l 16:23: Route: [place] 00 IVP, Q5Min, Dosing Weight 168.864, kg, PRN Pain Score 4-6, Start date: 08/15/15 10:23:00, Duration: 4 doses or times, Stop date: Limited # of times Hydromorpho 2014-08 No 0.5 mg, Mem oria ne 2-17 Route: l 16:23: IVP, [place] 00 Q5Min, Dosing Weight 168.864, kg, PRN [...] 25 Memoria 2-17 microgram, l 16:23: Route: [place] 00 IVP, Q5Min, Dosing Weight 168.864, kg, PRN Pain Score 4-6, Start date: 08/15/15 10:23:00, Duration: 4 doses or times, Stop date: Limited # of times Hydromorpho 2014-08 No 0.5 mg, Mem oria ne 2-17 Route: l 16:23: IVP, [place] 00 Q5Min, Dosing Weight 168.864, kg, PRN [...] 25 Memoria 2-17 microgram, l 16:23: Route: [place] 00 IVP, Q5Min, Dosing Weight 168.864, kg, [...] Memor ia 2-17 Route: l 16:23: IVP, [place] 00 Q2MIN, Dosing Weight 168.864, kg, PRN [...] 25 [facility] 2-17 microgram, l 16:23: Route: IVP, Q5Min, Dosing Weight 168.864, kg, PRN Pain Score 4-6, Start date: 08/15/15 10:23:00, Duration: 4 doses or times, Stop date: Limited # of times Hydromorpho 2014-08 No 0.5 mg, Mem oria ne 2-17 Route: l 16:23: IVP, [place] 00 Q5Min, Dosing Weight 168.864, kg, PRN [...] moria e 2-17 Route: l 16:23: IVPB, [place] 00 ONCE, Dosing Weight 168.864, kg, PRN Nausea & Vomiting, Start date: 08/15/15 10:23:00 Flumazenil 2014-08 No 0.2 mg, Henok vane 2-17 Route: l 16:23: IVP, PRN, [facility] 00 Dosing Weight 168.864, kg, PRN Benzodiaze pine Reversal, Initial dose, Start date: 08/15/15 10:23:00, Duration: 30 day, Stop date: 09/14/15 10:22:00 Fentanyl 2014-08 No 25 Mem[facility] 2-17 microgram, l 16:23: Route: [place] 00 IVP, Q5Min, Dosing Weight 168.864, kg, [...] vane 2-17 Route: l 16:23: IVP, PRN, [place] 00 Dosing Weight 168.864, kg, PRN Benzodiaze pine Reversal, Initial dose, Start date: 08/15/15 10:23:00, Duration: 30 day, Stop date: 09/14/15 10:22:00 Fentanyl 2014- No 25 Memoria 2-17 microgram, l 16:23: Route: [place] 00 IVP, Q5Min, Dosing Weight 168.864, kg, PRN Pain Score 4-6, Start date: 08/15/15 10:23:00, Duration: 4 doses or times, Stop date: Limited # of times Hydromorpho 2014-08 No 0.5 mg, Mem oria ne 10-16 Route: l 16:23: IVP, [facility] 00 Q5Min, Dosing Weight 168.864, kg, PRN Pain Score 7-10, Start date: 08/15/15 10:23:00, Duration: 4 doses or times, Stop date: Limited # of times Naloxone 2014-08 No 0.04 mg, Memor ia 10-16 Route: l 16:23: IVP, [place] 00 Q2MIN, Dosing Weight 168.864, kg, PRN Narcotic Reversal, Start date: 08/15/15 10:23:00, Duration: 8 doses or times, Stop date: Limited # of times Ondansetron 2014-08 No 4 mg, Memor ia 2-17 Route: l 16:23: IVP, ONCE, [place] 00 Dosing Weight 168.864, kg, PRN Nausea & Vomiting, Start date: 08/15/15 10:23:00 Promethazin 2014-08 No 6.25 mg, Me moria e 17 Route: l 16:23: IVPB, [place] 00 ONCE, Dosing Weight 168.864, kg, PRN Nausea & Vomiting, Start date: 08/15/15 10:23:00 Flumazenil 2014-08 No 0.2 mg, Henok vane 217 Route: l 16:23: IVP, PRN, [place] 00 Dosing Weight 168.864, kg, PRN Benzodiaze [...] oria ne 2-17 Route: l 16:23: IVP, [place] 00 Q5Min, Dosing Weight 168.864, kg, PRN [...] ia 2-17 Route: l 16:23: IVP, ONCE, [place] 00 Dosing Weight 168.864, kg, PRN Nausea & Vomiting, Start date: 08/15/15 10:23:00 Promethazin 2014-08 No 6.25 mg, Me moria e 2-17 Route: l 16:23: IVPB, [place] 00 ONCE, Dosing Weight 168.864, kg, PRN [...] oria ne 2-17 Route: l 16:23: IVP, [place] 00 Q5Min, Dosing Weight 168.864, kg, PRN [...] 2-17 Rate: 25 l 0.0014 13:59: ml/hr, [place] MEQ/ML / 00 Infuse Potassium over: 40 [...] 2-17 Rate: 25 l 0.0014 13:59: ml/hr, [place] MEQ/ML / 00 Infuse Potassium over: 40 [...] sodium, 2-14 porcine l porcine 16:00: heparin [place] 2500 UNT/ML 00 Injectable Solution Cefazolin 2014-08 No Notes: Memori a 2-14 Same as: l 16:00: Ancef [facility] 00 Emend 2014-08 No Notes: [facility] 2-14 Same as: l 16:00: Emend [facility] 00 restricted to the Hematology /Oncology service for high and moderate emetogenic regimen according to ASCO Guidelines [place] Only for Chemothe[employer] py-Induced nausea & vomiting heparin 2014-08 No Notes: [facility] sodium, 2-14 porcine l porcine 16:00: heparin [place] 2500 UNT/ML 00 Injectable Solution Cefazolin 2014-08 No Notes: Memori a 2-14 Same as: l 16:00: Ancef [place] 00 Emend 2014-08 No Notes: [facility] 2-14 Same as: l 16:00: Emend [place] 00 restricted to the Hematology /Oncology service for high and moderate emetogenic regimen according to ASCO Guidelines [place] Only for Chemothera py-Induced nausea & vomiting heparin 2014-08 No Notes: [facility] sodium, 2-14 porcine l porcine 16:00: heparin [place] 2500 UNT/ML 00 Injectable Solution Cefazolin 2014-08 No Notes: Memori a 2-14 Same as: l 16:00: Ancef [place] 00 Emend 2014-08 No Notes: [facility] 2-14 Same as: l 16:00: Emend [facility] 00 restricted to the Hematology /Oncology service for high and moderate emetogenic regimen according to ASCO Guidelines [place] Only for Chemothera py-Induced nausea & vomiting heparin 2014-08 No Notes: [facility] sodium, 2-14 porcine l porcine 16:00: heparin [place] 2500 UNT/ML 00 Injectable Solution Cefazolin 2014-08 No Notes: Memori a 2-14 Same as: l 16:00: Ancef [facility] 00 Emend 2014-08 No Notes: [facility] 2-14 Same as: l 16:00: Emend [facility] 00 restricted to the Hematology /Oncology service for high and moderate emetogenic regimen according to ASCO Guidelines [place] Only for Chemothera py-Induced nausea & vomiting heparin 2014-08 No Notes: [facility] sodium, 2-14 porcine l porcine 16:00: heparin [place] 2500 UNT/ML 00 Injectable Solution Cefazolin 2014-08 No Notes: Memori a 2-14 Same as: l 16:00: Ancef [place] 00 Emend 2014-08 No Notes: Memoria 2-14 Same as: l 16:00: Emend [place] 00 restricted to the Hematology /Oncology service for high and moderate emetogenic regimen according to ASCO Guidelines [place] [facility] Only for Chemothera py-Induced nausea & vomiting heparin 2014-08 No Notes: [facility] sodium, 2-14 porcine l porcine 16:00: heparin [place] 2500 UNT/ML 00 Injectable Solution Cefazolin 2014-08 No Notes: Memori a 2-14 Same as: l 16:00: Ancef [place] 00 Emend 2014-08 No Notes: Memoria 2-14 [...] Same as: l 16:00: Ancef Dav 00 Emend 2014-08 No Notes: [facility] 2-14 Same as: l 16:00: Emend [place] 00 restricted to the Hematology /Oncology service for high and moderate emetogenic regimen according to ASCO Guidelines [place] Only for Chemothera py-Induced nausea & vomiting heparin 2014-08 No Notes: Mem[facility] sodium, 2-14 porcine l porcine 16:00: heparin [place] 2500 UNT/ML 00 Injectable Solution Cefazolin 2014-08 No Notes: Memori a 2-14 Same as: l 16:00: Ancef [place] 00 Omeprazole 2014-08 Yes 40 mg = [...] 2-14 tab, PO, l tablet 15:44: Bedtime, [place] 00 PRN for insomnia, # 90 tab, 0 Refill(s) Depo-Field Recorder 2014-08 Yes 150 mg = 1 [facility] [...] for insomnia, # 90 tab, 0 Refill(s) Depo-Field Recorder 2014-08 Yes 150 mg = 1 [facility] [...] for insomnia, # 90 tab, 0 Refill(s) Depo-Field Recorder 2014-08 Yes 150 mg = 1 [facility] a 2-14 mL, IM, l Contracepti 15:44: q3mo, # 1 H ermann ve 150 00 mL, 0 mg/mL Refill(s) intramuscul ar suspension Hydrochloro 2014-08 Yes 1 tab, PO, Memoria thiazide 25 2-14 Daily, # l MG / 15:44: 30 tab, 0 [place] Lisinopril 00 Refill(s) 20 MG Oral Tablet Melatonin 2014-08 Yes 1 mg = 1 Me moria mg oral 2-14 tab, PO, l tablet 15:44: Bedtime, Dav 00 PRN for insomnia, # 90 tab, 0 Refill(s) Depo-Field Recorder 2014-08 Yes 150 mg = 1 Memoria [...] for insomnia, # 90 tab, 0 Refill(s) Depo-Field Recorder 2014-08 Yes 150 mg = 1 Memoria a 2-14 mL, IM, l Contracepti 15:44: q3mo, # 1 H ermann ve 150 00 mL, 0 mg/mL Refill(s) intramuscul ar suspension Hydrochloro 2014-08 Yes 1 tab, PO, Memoria thiazide 25 2-14 Daily, # l MG / 15:44: 30 tab, 0 [place] Lisinopril 00 Refill(s) 20 MG Oral Tablet Melatonin 2014-08 Yes 1 mg = 1 Me moria mg oral 2-14 tab, PO, l tablet 15:44: Bedtime, Dav 00 PRN for insomnia, # 90 tab, 0 Refill(s) Depo-Field Recorder 2014-08 Yes 150 mg = 1 Memoria a 2-14 mL, IM, l Contracepti 15:44: q3mo, # 1 H ermann ve 150 00 mL, 0 mg/mL Refill(s) intramuscul ar suspension Hydrochloro 2014-08 Yes 1 tab, PO, Memoria thiazide 25 2-14 Daily, # l MG / 15:44: 30 tab, 0 [place] Lisinopril 00 Refill(s) 20 MG Oral Tablet Melatonin 2014-08 Yes 1 mg = 1 Me moria mg oral 2-14 tab, PO, l tablet 15:44: Bedtime, Dav 00 PRN for insomnia, # 90 tab, 0 Refill(s) Depo-Field Recorder 2014-08 Yes 150 mg = 1 Memoria [...] for insomnia, # 90 tab, 0 Refill(s) Depo-Field Recorder 2014-08 Yes 150 mg = 1 Memoria a 2-14 mL, IM, l Contracepti 15:44: q3mo, # 1 H ermann ve 150 00 mL, 0 mg/mL Refill(s) intramuscul ar suspension [id number] 2014-08 No 1,000 mL, Memori a 1,000 [...] Transdermal hours Patch (Same as: Transderm- Scop) [id number] 2014-08 No 1,000 mL, Memori a 1,000 mL 2-14 Rate: 125 l 15:13: ml/hr, [place] 00 Infuse over: 8 hr, Route: IV, Dosing Weight 175.909 kg, Total Volume: 1,000, Start date: 08/12/15 9:13:00, Duration: 4 day, Stop date: 08/16/15 9:12:00 72 HR 2014-08 No Notes: [facility] Scopolamine 2-14 Change l 0.0139 15:13: patch [place] MG/HR 00 every 72 Transdermal hours Patch (Same as: Transderm- Scop) [id number] 2014-08 No 1,000 mL, Memori a 1,000 mL 2-14 Rate: 125 l 15:13: ml/hr, Dav 00 Infuse over: 8 hr, Route: IV, Dosing Weight 175.909 kg, Total Volume: 1,000, Start date: 08/12/15 9:13:00, Duration: 4 day, Stop date: 08/16/15 9:12:00 72 HR 2014-08 No Notes: [facility] Scopolamine 2-14 Change l 0.0139 15:13: patch [place] MG/HR 00 every 72 Transdermal hours Patch (Same as: Transderm- Scop) [facility] 2014-08 No 1,000 mL, Memori a 1,000 mL 2-14 Rate: 125 l 15:13: ml/hr, [place] 00 Infuse over: 8 hr, Route: IV, Dosing Weight 175.909 kg, Total Volume: 1,000, Start date: 08/12/15 9:13:00, Duration: 4 day, Stop date: 08/16/15 9:12:00 72 HR 2014-08 No Notes: [facility] Scopolamine 2-14 Change l 0.0139 15:13: patch [place] MG/HR 00 every 72 Transdermal hours Patch (Same as: Transderm- Scop) [facility] 2014-08 No 1,000 mL, Memori a 1,000 [...] Transdermal hours Patch (Same as: Transderm- Scop) [facility] 2014-08 No 1,000 mL, Memori a 1,000 [...] Transdermal hours Patch (Same as: Transderm- Scop) [id number] 2014-08 No 1,000 mL, Memori a 1,000 mL 2-14 Rate: 125 l 15:13: ml/hr, [place] 00 Infuse over: 8 hr, Route: IV, Dosing Weight 175.909 kg, Total Volume: 1,000, Start date: 08/12/15 9:13:00, Duration: 4 day, Stop date: 08/16/15 9:12:00 72 HR 2014-08 No Notes: [facility] Scopolamine 2-14 Change l 0.0139 15:13: patch Dav MG/HR 00 every 72 Transdermal hours Patch (Same as: Transderm- Scop) [id number] 2014-08 No 1,000 mL, Memori a 1,000 mL 2-14 Rate: 125 l 15:13: ml/hr, [place] 00 Infuse over: 8 hr, Route: IV, Dosing Weight 175.909 kg, Total Volume: 1,000, Start date: 08/12/15 9:13:00, Duration: 4 day, Stop date: 08/16/15 9:12:00 72 HR 2014-08 No Notes: [facility] Scopolamine 2-14 Change l 0.0139 15:13: patch [place] MG/HR 00 every 72 Transdermal hours Patch (Same as: Transderm- Scop) Naloxone 2014-08 No 0.1 mg, Memori a 0-12 Route: l 14:25: IVP, [place] 00 Q2MIN, Dosing Weight 175.909, kg, PRN [...] Memori a 0-12 Route: l 14:25: IVP, [place] 00 Q2MIN, Dosing Weight 175.909, kg, PRN Narcotic Reversal, Start date: 06/10/15 9:25:00, Duration: 4 doses or times, Stop date: Limited # of times Flumazenil 2014-08 No 0.1 mg, Henok vane 0-12 Route: l 14:25: IVP, [place] 00 Q5Min, Dosing Weight 175.909, kg, PRN [...] Henok vane 0-12 Route: l 14:25: IVP, [place] 00 Q5Min, Dosing Weight 175.909, kg, PRN [...] Henok vane 0-12 Route: l 14:25: IVP, [place] 00 Q5Min, Dosing Weight 175.909, kg, PRN [...] Henok vane 0-12 Route: l 14:25: IVP, [place] 00 Q5Min, Dosing Weight 175.909, kg, PRN Other -See Comment, Start date: 06/10/15 9:25:00, Duration: 30 day, Stop date: 07/10/15 8:24:00 Sodium 2014- No 1,000 mL, Memori a Chloride 0-12 Rate: 25 l 0.154 12:06: ml/hr, [place] MEQ/ML 00 Infuse Injectable over: 40 Solution hr, Route: IV, Dosing Weight 175.909 kg, Total Volume: 1,000, Start date: 06/10/15 7:06:00, Duration: 30 day, Stop date: 07/10/15 7:05:00 Sodium 2014- No 1,000 mL, Memori a Chloride 0-12 Rate: 25 l 0.154 12:06: ml/hr, Dav MEQ/ML 00 Infuse Injectable over: 40 Solution hr, Route: IV, Dosing Weight 175.909 kg, Total Volume: 1,000, Start date: 06/10/15 7:06:00, Duration: 30 day, Stop date: 07/10/15 7:05:00 Sodium 2014-1 No 1,000 mL, Memori a Chloride 0-12 Rate: 25 l 0.154 12:06: ml/hr, [place] MEQ/ML 00 Infuse Injectable over: 40 Solution hr, Route: IV, Dosing Weight 175.909 kg, Total Volume: 1,000, Start date: 06/10/15 7:06:00, Duration: 30 day, Stop date: 07/10/15 7:05:00 Sodium 2014-1 No 1,000 mL, Memori a Chloride 0-12 Rate: 25 l 0.154 12:06: ml/hr, [place] MEQ/ML 00 Infuse Injectable over: 40 Solution hr, Route: IV, Dosing Weight 175.909 kg, Total Volume: 1,000, Start date: 06/10/15 7:06:00, Duration: 30 day, Stop date: 07/10/15 7:05:00 Sodium 2014-1 No 1,000 mL, Memori a Chloride 0-12 Rate: 25 l 0.154 12:06: ml/hr, Dav MEQ/ML 00 Infuse Injectable over: 40 Solution hr, Route: IV, Dosing Weight 175.909 kg, Total Volume: 1,000, Start date: 06/10/15 7:06:00, Duration: 30 day, Stop date: 07/10/15 7:05:00 Sodium 2014- No 1,000 mL, Memori a Chloride 0-12 Rate: 25 l 0.154 12:06: ml/hr, Dav MEQ/ML 00 Infuse Injectable over: 40 Solution hr, Route: IV, Dosing Weight 175.909 kg, Total Volume: 1,000, Start date: 06/10/15 7:06:00, Duration: 30 day, Stop date: 07/10/15 7:05:00 Sodium 2014- No 1,000 mL, Memori a Chloride 0-12 Rate: 25 l 0.154 12:06: ml/hr, Dav MEQ/ML 00 Infuse Injectable over: 40 Solution hr, Route: IV, Dosing Weight 175.909 kg, Total Volume: 1,000, Start date: 06/10/15 7:06:00, Duration: 30 day, Stop date: 07/10/15 7:05:00 Sodium 2014- No 1,000 mL, Memori a Chloride 0-12 Rate: 25 l 0.154 12:06: ml/hr, [place] MEQ/ML 00 Infuse Injectable over: 40 Solution hr, Route: IV, Dosing Weight 175.909 kg, Total Volume: 1,000, Start date: 06/10/15 7:06:00, Duration: 30 day, Stop date: 07/10/15 7:05:00 Hydrochloro 2014- No 1 tab, PO, Memoria thiazide 25 0-09 Daily, # l MG / 19:35: 30 tab, 0 Dav Lisinopril 00 Refill(s) 20 MG Oral Tablet oxcarbazepi 2014-08 Yes 600 mg = 2 Memoria ne 300 MG 0-09 tab, PO, l Oral Tablet 19:35: BID, # 120 [place] [Trileptal] 00 tab, 0 Refill(s) Hydrochloro 2014-08 [...] l Oral Tablet 19:35: BID, # 120 [place] [Trileptal] 00 tab, 0 Refill(s) Hydrochloro 2014-08 No 1 tab, PO, Memoria thiazide 25 0-09 Daily, # l MG / 19:35: 30 tab, 0 Dav Lisinopril 00 Refill(s) 20 MG Oral Tablet oxcarbazepi 2014-08 Yes 600 mg = 2 Memoria ne 300 MG 0-09 tab, PO, l Oral Tablet 19:35: BID, # 120 [place] [Trileptal] 00 tab, 0 Refill(s) Hydrochloro 2014-08 [...] l MG / 19:35: 30 tab, 0 [place] Lisinopril 00 Refill(s) 20 MG Oral Tablet [...] 0 Memori a 0-09 Refill(s) l 19:31: [place] 00 Wellbutrin 2014-08 Yes PO, 0 Memori [...] Date Status Commen ts Source Name Name [place] [id number] 2021-04-05 [facility] 2021-04-05 Completed [facility] AD26 [facility] 2021-04-05 Completed [facility] t AD26 [facility] 2021-04-05 Completed [facility] t AD26 [facility] 2021-04-05 Completed Methodis t AD26 VACCINATION 00:00:00 [facility] pneumococcal 2015-08-16 Completed [facility] 23-valent 18:10:35 vaccine<sup>1</sup> pneumococcal 2015-08-16 Completed [facility] 23-valent 18:10:35 vaccine<sup>1</sup> pneumococcal 2015-08-16 Completed [facility] 23-valent 18:10:35 vaccine<sup>1</sup> pneumococcal 2015-08-16 Completed [facility] 23-valent 18:10:35 vaccine<sup>1</sup> pneumococcal 2015-08-16 Completed [facility] [place] 23-valent 18:10:35 vaccine<sup>1</sup> pneumococcal 2015-08-16 Completed [facility] [place] 23-valent 18:10:35 vaccine<sup>1</sup> pneumococcal 2015-08-16 Completed [facility] [place] 23-valent 18:10:35 vaccine<sup>1</sup> pneumococcal 2015-08-16 Completed [facility] 23-valent 18:10:35 vaccine<sup>1</sup> Vital Signs Vital Name Observation Time Observation Value Comments Source Systolic blood 2022-08-26 19:08:00 166 mm[Hg] Univer sity of pressure [facility] Diastolic blood 2022-08-26 19:08:00 99 mm[Hg] Unive rsity of pressure [facility] Heart rate 2022-08-26 19:08:00 77 /min [facility] Body temperature 2022-08-26 19:08:00 37 Gabrielle [facility] rate 2022-08-26 19:08:00 18 /min [facility] Body height 2022-08-26 19:08:00 170.2 cm [facility] Body weight 2022-08-26 19:08:00 147.419 kg [facility] BMI 2022-08-26 19:08:00 50.90 kg/m2 [facility] Oxygen saturation in 2022-08-26 19:08:00 98 /min [facility] Arterial blood by [facility] Pulse oximetry Branch BP Diastolic 2022-04-08 00:00:00 90 mm[Hg] [facility] Height 2022-04-08 00:00:00 66 [in_i] [facility] BMI (Body Mass 2022-04-08 00:00:00 53.7 kg/m2 [facility] Medical Index) BP Systolic 2022-04-08 00:00:00 142 mm[Hg] [facility] Body Weight 2022-04-08 00:00:00 333 [lb_av] [facility] BP Diastolic 2021-12-18 00:00:00 86 mm[Hg] [facility] Height 2021-12-18 00:00:00 66 [in_i] [facility] BMI (Body Mass 2021-12-18 00:00:00 54[facility]7 [facility] BP Systolic 2021-12-18 00:00:00 140 mm[Hg] [facility] Body Weight 2021-12-18 00:00:00 339 [lb_av] [facility] BP Diastolic 2021-11-25 00:00:00 88 mm[Hg] [facility] BP Systolic 2021-11-25 00:00:00 138 mm[Hg] Faiht Nicole [facility] Body Weight 2021-11-25 00:00:00 338 [lb_av] Faith Nicole ical Systolic blood 2022-06-12 02:38:00 128 mm[Hg] [facility] pressure Diastolic blood 2022-06-12 02:38:00 77 mm[Hg] [facility] pressure Heart rate 2022-06-12 02:38:00 63 /min [facility] Respiratory rate 2022-06-12 02:38:00 18 /min [facility] Oxygen saturation in 2022-06-12 02:38:00 97 /min [facility] Arterial blood by Pulse oximetry Body temperature 2022-06-11 23:40:00 36.5 Gabrielle [facility] Body height 2022-06-11 23:38:00 170.2 cm [facility] Body weight 2022-06-11 23:38:00 145.151 kg [facility] BMI 2022-06-11 23:38:00 50.12 kg/m2 [facility] Systolic (mm Hg) 2022-03-19 07:00:00 [facility] Diastolic (mm Hg) 2022-03-19 07:00:00 [facility] orial [place] Respitory Rate 2022-03-19 07:00:00 [facility] Dav Heart Rate 2022-03-19 07:00:00 [facility] 2022-03-19 03:25:00 170.18 cm [facility] BMI Calculated 2022-03-19 03:25:00 [facility] [place] Weight 2022-03-19 03:25:00 [facility] 2022-03-19 03:25:00 [facility] Diastolic (mm Hg) 2022-03-19 03:25:00 Mem orial [place] Heart Rate 2022-03-19 03:25:00 [facility] [place] Respitory Rate 2022-03-19 03:25:00 Memori al Dav Temperature Oral (F) 2022-03-19 03:25:00 98.4 F [facility] [place] Temperature Oral (F) 2022-03-14 04:45:00 99.1 F [facility] Dav Heart Rate 2022-03-14 04:45:00 [facility] Respitory Rate 2022-03-14 04:45:00 Memori al Dav Systolic (mm Hg) 2022-03-14 04:45:00 Henok rial [place] Diastolic (mm Hg) 2022-03-14 04:45:00 Mem orial Dav Weight 2022-03-14 00:40:00 [facility] Dav Systolic (mm Hg) 2022-03-14 00:40:00 Henok rial [place] Diastolic (mm Hg) 2022-03-14 00:40:00 Mem orial [place] Heart Rate 2022-03-14 00:40:00 [facility] Dav Respitory Rate 2022-03-14 00:40:00 Memori al [place] Temperature Oral (F) 2022-03-14 00:40:00 100 F [facility] [place] Systolic (mm Hg) 2021-01-21 01:00:00 Henok rial Dav Diastolic (mm Hg) 2021-01-21 01:00:00 Mem orial [place] Heart Rate 2021-01-21 01:00:00 [facility] [place] Respitory Rate 2021-01-21 01:00:00 Memori al [place] Temperature Oral (F) 2021-01-21 01:00:00 98.5 F [facility] Dav Height 2021-01-20 21:08:00 170.18 cm [facility] [place] BMI Calculated 2021-01-20 21:08:00 Memori al [place] Weight 2021-01-20 21:08:00 [facility] [place] Systolic (mm Hg) 2021-01-20 21:08:00 Henok rial [place] Diastolic (mm Hg) 2021-01-20 21:08:00 Mem orial Dav Heart Rate 2021-01-20 21:08:00 [facility] [place] Respitory Rate 2021-01-20 21:08:00 Memori al Dav Temperature Oral (F) 2021-01-20 21:08:00 98.7 F [facility] Weight 2015-09-19 21:05:00 [facility] Temperature Oral (F) 2015-09-19 20:45:00 97.7 F [facility] [place] Systolic (mm Hg) 2015-09-19 20:45:00 Henok rial Dav Diastolic (mm Hg) 2015-09-19 20:45:00 Mem orial [place] Heart Rate 2015-09-19 20:45:00 Memorial Dav Respitory Rate 2015-09-19 20:45:00 Memori al [place] Respitory Rate 2015-09-19 18:54:00 Memori al Adv Systolic (mm Hg) 2015-09-19 18:54:00 Henok rial Dav Diastolic (mm Hg) 2015-09-19 18:54:00 Mem orial [place] Systolic (mm Hg) 2015-09-19 18:39:00 Henok rial Dav Diastolic (mm Hg) 2015-09-19 18:39:00 Mem orial [place] Respitory Rate 2015-09-19 18:39:00 Memori al [place] Heart Rate 2015-09-19 18:04:00 [facility] Temperature Oral (F) 2015-09-19 13:40:00 97.8 F [facility] [place] Heart Rate 2015-09-19 13:40:00 [facility] [place] Temperature Oral (F) 2015-09-19 11:08:00 97.9 F [facility] [place] Weight 2015-09-18 05:03:00 [facility] Weight 2015-09-18 00:07:00 [facility] [place] Height 2015-09-18 00:07:00 170.18 cm [facility] [place] BMI Calculated 2015-09-18 00:07:00 Memori al Dav Temperature Oral (F) 2015-08-26 22:06:00 98 F [facility] [place] Heart Rate 2015-08-26 22:06:00 [facility] Respitory Rate 2015-08-26 22:06:00 Memori al Dav Systolic (mm Hg) 2015-08-26 22:06:00 Henok rial Dav Diastolic (mm Hg) 2015-08-26 22:06:00 Mem orial Dav Temperature Oral (F) 2015-08-26 20:46:00 98.0 F [facility] [place] Systolic (mm Hg) 2015-08-26 20:46:00 Henok rial Dav Diastolic (mm Hg) 2015-08-26 20:46:00 Mem orial [place] Respitory Rate 2015-08-26 20:46:00 Memori al Dav Heart Rate 2015-08-26 20:46:00 [facility] Weight 2015-08-26 16:38:00 [facility] BMI Calculated 2015-08-26 16:38:00 Memori al [place] Respitory Rate 2015-08-26 16:38:00 Memori al Dav Heart Rate 2015-08-26 16:38:00 [facility] Systolic (mm Hg) 2015-08-26 16:38:00 Henok rial Dav Diastolic (mm Hg) 2015-08-26 16:38:00 Mem orial [place] Height 2015-08-26 16:38:00 170.18 cm [facility] [place] Temperature Oral (F) 2015-08-26 16:38:00 97.9 F [facility] [place] Systolic (mm Hg) 2015-08-16 18:33:00 Henok rial Dav Diastolic (mm Hg) 2015-08-16 18:33:00 Mem orial [place] Heart Rate 2015-08-16 18:33:00 [facility] Dav Respitory Rate 2015-08-16 18:33:00 Memori al Dav Temperature Oral (F) 2015-08-16 18:33:00 97.9 F [facility] Respitory Rate 2015-08-16 14:00:00 Memori al Dav Systolic (mm Hg) 2015-08-16 14:00:00 Henok rial Dav Diastolic (mm Hg) 2015-08-16 14:00:00 Mem orial [place] Temperature Oral (F) 2015-08-16 14:00:00 98.0 F [facility] [place] Heart Rate 2015-08-16 14:00:00 [facility] [place] Temperature Oral (F) 2015-08-16 10:20:00 98.1 F [facility] [place] Heart Rate 2015-08-16 10:20:00 [facility] Systolic (mm Hg) 2015-08-16 10:20:00 Henok rial [place] Diastolic (mm Hg) 2015-08-16 10:20:00 Mem orial [place] Respitory Rate 2015-08-16 10:20:00 Memori al [place] Height 2015-08-15 17:30:00 170.18 cm [facility] [place] Weight 2015-08-15 17:30:00 [facility] [place] BMI Calculated 2015-08-15 17:30:00 Memori al Dav Weight 2015-08-15 12:45:00 [facility] Height 2015-08-12 15:32:00 170.18 cm [facility] [place] Weight 2015-08-12 15:32:00 [facility] [place] BMI Calculated 2015-08-12 15:32:00 Memori al Dav Respitory Rate 2015-06-10 14:07:00 Memori al [place] Systolic (mm Hg) 2015-06-10 14:07:00 Henok rial [place] Diastolic (mm Hg) 2015-06-10 14:07:00 Mem orial [place] Systolic (mm Hg) 2015-06-10 13:52:00 Henok rial Dav Diastolic (mm Hg) 2015-06-10 13:52:00 Mem orial Dav Respitory Rate 2015-06-10 13:52:00 Memori al Dav Systolic (mm Hg) 2015-06-10 13:37:00 Henok rial Dav Diastolic (mm Hg) 2015-06-10 13:37:00 Mem orial Dav Respitory Rate 2015-06-10 13:37:00 Memori al Dav Weight 2015-06-07 19:28:00 [facility] [place] BMI Calculated 2015-06-07 19:28:00 Memori al [place] Height 2015-06-07 19:28:00 170.18 cm [facility] Procedures Procedure Date / Time Performing Source Performed Clinician XR CHEST 2 VW 2022-08-26 [facility] of 20:46:19 [facility] RAPID INFLUENZA A/B 2022-08-26 [facility] o f 19:56:00 [facility] COVID-19 (ID NOW RAPID TESTING) 2022-08-26 [facility] of 19:56:00 [facility] NOTICE OF PRIVACY PRACTICES 2022-08-26 [facility] 18:35:53 Unassigned, No [facility] CONSENT/REFUSAL FOR DIAGNOSIS AND 2022-08-26 [facility] TREATMENT 18:35:08 Unassigned, No [facility] URINE CULTURE 2022-06-12 Shayne Menezes 02:11:00 [facility] URINALYSIS 2022-06-12 Shayne Menezes 02:11:00 [facility] HCG QUALITATIVE, URINE SCREEN 2022-06-12 [facility]zes [facility] 02:[facility]00 [facility] INFLUENZA ANTIGEN 2022-06-12 Shayne Menezes 00:07:00 [facility] CBC WITH PLATELET AND DIFFERENTIAL 2022-06-12 Amaury Menezes 00:07:00 [facility] COMPREHENSIVE METABOLIC PANEL 2022-06-12 Shayne Menezes [facility] 00:07:00 [facility] ESTIMATED GFR 2022-06-12 Shayne Menezes 00:07:00 [facility] MANUAL DIFFERENTIAL 2022-06-12 Shayne Menezes 00:07:00 [facility] CBC WITH PLATELET AND DIFFERENTIAL 2022-06-12 Amaury Menezes 00:07:00 [facility] XR CHEST 1 VW 2022-06-11 Shayne Menezes 23:55:13 [facility] MRI PITUITARY W WO CONTRAST 2021-12-05 Longo Kaycee [facility] 16:05:12 [facility] MRI, pituitary, w/wo contrast 2021-11-27 [facility] 00:[facility]:00 US PELVIC TRANSABDOMINAL 2021-11-[address] 07:30:53 [facility] US PELVIC TRANSVAGINAL 2021-11-09 Edin Lakhani 07:30:53 [facility] HCG QUALITATIVE, SERUM SCREEN 2021-11-09 [facility] 03:50:00 [facility] HC COMPLETE BLD COUNT W/AUTO DIFF 2021-11-09 Edin Lakhani 03:35:00 [facility] PROTHROMBIN TIME WITH INR 2021-11-09 Jack Lakhani ist 03:35:00 [facility] PARTIAL THROMBOPLASTIN TIME (PTT) 2021-11-09 Edin Lakhani 03:35:00 [facility] COMPREHENSIVE METABOLIC PANEL 2021-11-09 [facility] 03:35:00 [facility] ESTIMATED GFR 2021-11-09 Edin Lakhani 03:35:00 [facility] Gastric Bypass for Obesity 2014-08-30 [facility] 00:00:00 Cholecystectomy 2014-08-30 [facility] 00:00:00 Arthroscopy of knee<sup>1</sup> [facility] Esophagogastroduodenoscopy [facility] [place] Banding of gastric varices [facility] [place] Plan of Care Planned Activity Planned Date Details Comments Source Future Scheduled Test 2022-12-04 Hepatitis C [facility] 03:26:37 screening (procedure) [code = 627569730] Future Scheduled Test 2022-12-04 [facility] 03:26:37 malignant neoplasm of cervix (procedure) [code = [id number]] Future Scheduled Test 2022-12-04 COVID-19 VACCINE ([address] [place] [address] 03:26:37 - Booster for Ron series) [code = COVID-19 VACCINE (3 - Booster for Ron series)] Future Scheduled Test 2022-12-04 INFLUENZA VACCINE [facility] 03:26:37 [code = INFLUENZA VACCINE] Future Scheduled Test 2022-12-04 Hepatitis C [facility] 03:26:37 screening (procedure) [code = [id number]] Future Scheduled Test 2022-12-04 Screening for [facility] 03:26:37 malignant neoplasm of cervix (procedure) [code = [id number]] Future Scheduled Test 2022-12-04 COVID-19 VACCINE ([address] [place] [address] 03:26:37 - Booster for Ron series) [code = COVID-19 VACCINE (3 - Booster for Ron series)] Future Scheduled Test 2022-12-04 INFLUENZA VACCINE [facility] 03:26:37 [code = INFLUENZA VACCINE] Future Scheduled Test 2022-12-04 Hepatitis C [facility] 03:26:37 screening (procedure) [code = [id number]] Future Scheduled Test 2022-12-04 [facility] 03:26:37 malignant neoplasm of cervix (procedure) [code = [id number]] Future Scheduled Test 2022-12-04 COVID-19 VACCINE ([address] [place] [address] 03:26:37 - Booster for Ron series) [code = COVID-19 VACCINE (3 - Booster for Ron series)] Future Scheduled Test 2022-12-04 INFLUENZA VACCINE [facility] 03:26:37 [code = INFLUENZA VACCINE] Future Scheduled Test 2022-10-17 Hepatitis C [facility] 21:28:36 screening (procedure) [code = [id number]] Future Scheduled Test 2022-10-17 [facility] 21:28:36 malignant neoplasm of cervix (procedure) [code = 764872554] Future Scheduled Test 2022-10-17 COVID-19 VACCINE ([address] [place] [address] 21:28:36 - Booster for Ron series) [code = COVID-19 VACCINE (3 - Booster for Ron series)] Future Scheduled Test 2022-10-17 INFLUENZA VACCINE [facility] 21:28:36 [code = INFLUENZA VACCINE] Future Scheduled Test 2022-10-17 Hepatitis C [facility] 21:28:36 screening (procedure) [code = 649663980] Future Scheduled Test 2022-10-17 Screening for [facility] 21:28:36 malignant neoplasm of cervix (procedure) [code = [id number]] Future Scheduled Test 2022-10-17 COVID-19 VACCINE ([address] [place] [address] 21:28:36 - Booster for Ron series) [code = COVID-19 VACCINE (3 - Booster for Ron series)] Future Scheduled Test 2022-10-17 INFLUENZA VACCINE [facility] 21:28:36 [code = INFLUENZA VACCINE] Future Scheduled Test 2022-10-17 Hepatitis C Method [facility] 21:28:36 screening (procedure) [code = 851218115] Future Scheduled Test 2022-10-17 Screening for Metho [facility] 21:28:36 malignant neoplasm of cervix (procedure) [code = 800240361] Future Scheduled Test 2022-10-17 COVID-19 VACCINE ([address] [place] [address] 21:28:36 - Booster for Ron series) [code = COVID-19 VACCINE (3 - Booster for Ron series)] Future Scheduled Test 2022-10-17 INFLUENZA VACCINE [facility] 21:28:36 [code = INFLUENZA VACCINE] Diagnostic Test 2021-12-18 unlisted lab [code [facility] Pending 00:00:00 = unlisted lab] Encounters Start End Encounter Admission Attending Care Care Encounter Source Date/Time Date/Time Type Type Clinicians Facility Department ID 2022-05-13 Outpatient [facility] [id number] [place] 08:18:57 [id number] [facility] 2022-05-07 Outpatient [facility] [id number] [place] 12:12:06 [id number] [facility] 2022-05-06 Outpatient [facility] [id number] [place] 07:02:43 [id number] [facility] 2022-03-26 Outpatient [facility] [id number] [place] 11:04:27 [id number] [facility] 2022-02-06 Outpatient [facility] [id number] [place] 09:50:06 [id number] [facility] 2021-11-28 Outpatient [facility] [id number] [place] 13:41:01 [id number] [facility] 2021-11-26 Outpatient [facility] [id number] [place] 12:18:16 [id number] [facility] 2021-11-24 Outpatient [facility] [id number] [place] 06:46:20 [id number] [facility] 2016-09-10 Inpatient [facility] [id number] Johnson rris 18:31:18 Health 2016-09-03 Inpatient [facility] [id number] [facility] 19:49:43 [facility] 2016-09-02 Inpatient [facility] [id number] Johnson rris 14:46:00 [facility] 2016-08-28 Inpatient [facility] [id number] [facility] 12:49:08 [facility] 2016-08-25 Inpatient [facility] [id number] [facility] 18:38:06 [facility] 2016-08-25 Inpatient [facility] [id number] Johnson r[place] 00:00:00 [facility] 2016-08-25 Inpatient [facility] [id number] Johnson r[place] 00:00:00 [facility] 2016-08-24 Inpatient [facility] [id number] [place] [facility] 12:38:32 [facility] 2016-08-23 Inpatient [facility] [id number] [place] [facility] 23:40:15 [facility] 2016-08-23 Inpatient [facility] [id number] [place] [facility] 18:01:15 [facility] 2016-08-23 Inpatient [facility] [id number] [place] r[place] 05:23:14 [facility] 2016-08-23 Inpatient [facility] [id number] [place] 01:38:20 [facility] 2016-08-23 Inpatient [facility] [id number] Johnson rris 01:10:06 [facility] 2016-08-22 Inpatient [facility] [id number] Johnson rris 18:58:47 [facility] 2023-01-14 2023-01-14 Outpatient [facility] [place] 16:07:56 16:07:56 [id number] [facility] 2022-12-08 2022-12-08 Outpatient SFA SFA [id number] [place] 09:33:18 09:33:18 [id number] [facility] 2022-11-26 2022-11-26 Outpatient SFA SFA [id number] [place] 15:59:13 15:59:13 [id number] [facility] 2022-11-24 2022-11-24 Outpatient [facility] [place] 16:43:56 16:43:56 [id number] [facility] [place] 2022-11-19 2022-11-19 Outpatient SFA S[facility] [place] 16:29:20 16:29:20 [id number] [facility] [place] 2022-10-20 2022-10-20 Outpatient SFA [facility] [place] 15:07:59 15:07:59 [id number] [facility] [place] 2022-10-19 2022-10-19 Outpatient SFA SFA [place] 15:42:38 15:42:38 [id number] [facility] [place] 2022-08-26 2022-08-[address] [facility] [id number] [facility] 13:09:00 16:01:00 Sorayarubin PACHECO 350.1.13.10 i ty [facility] 4.2.7.2.686 [facility] [id number] [address] 2022-08-26 2022-08-26 Emergency X JAQUELIN [facility] ERT [id number] [facility] 13:09:00 16:01:00 DOUG sarmiento of [facility] 2022-08-06 2022-08-06 Outpatient [facility] [id number] [address] [place] [address] 00:00:00 00:00:00 [facility] 2022-06-17 2022-06-17 Outpatient [facility] [id number] [place] 00:00:00 00:00:00 [facility] 2022-06-11 2022-06-11 Emergency Hoang, 1.2.840.1 [id number] Methodi 18:26:00 22:09:[address] 3.430.2.7 Hospit a .3.302610 l .8 2022-06-11 2022-06-11 Emergency Hoang, 1.2.840.1 [id number] Methodi 18:26:00 22:09:[address] 3.430.2.7 Hospit a .3.308424 l .8 2022-06-11 2022-06-11 Travel 1.2.840.1 1.2.229.527 [id number] [facility]i 00:00:00 00:00:[address] 3.430.2.7 0.2.7.3.698 Ho spita .3.370399 084.8 l .8 2022-06-11 2022-06-11 Travel 1.2.840.1 1.2.972.881 1574 [id number] [facility]i 00:00:00 00:00:[address] 3.430.2.7 0.2.7.3.698 Ho spita .3.699326 084.8 l .8 2022-05-26 2022-05-26 Outpatient [facility] [id number] [place] 00:00:00 00:00:00 [facility] 2022-05-25 2022-05-25 [facility] [id number] [place] 00:00:00 00:00:00 [facility] 2022-05-25 2022-05-25 Outpatient [facility] PRIV PRIV [id number] [facility] 00:[facility]:00 00:00:00 _Diggs_R [id number] Medic al 2022-05-13 2022-05-13 [facility] [id number] [place] 08:26:30 11:29:53 [facility] 2022-05-01 2022-05-01 Outpatient [facility] [id number] [place] 00:00:00 00:00:00 [facility] 2022-04-14 2022-04-14 Outpatient [facility] [id number] [facility] 00:00:00 00:00:00 [facility] 2022-04-14 2022-04-14 [facility] [id number] [place] 00:00:00 00:00:00 [facility] 2022-04-08 2022-04-08 Outpatient [facility] PRIV PRIV [id number] [facility] 00:00:00 00:00:00 _Diggs_R [id number] Medic al 2022-04-08 2022-04-08 Kaycee [facility] 10 [facility] 00:00:00 00:00:00 [facility] FACULTY INSTRUCTOR: 4301 GC_SWHANBWH [facility] [address], [place] [address] , Ph. 2022-04-08 2022-04-08 Outpatient Donta [facility] PRIV [id number] e-1 00:00:00 00:00:00 Kaycee [id number] 2022-04-06 2022-04-06 Outpatient [facility] [id number] [place] 13:48:21 14:32:31 [facility] 2022-03-31 2022-03-31 Outpatient [facility] [id number] [place] 00:00:00 00:00:00 [facility] 2022-03-19 2022-03-19 [facility] [id number] Memoria 03:20:40 07:05:00 liang Demarco 02 [facility] 2022-03-19 2022-03-19 [facility] [id number] Memoria 03:20:40 07:05:00 liang Demarco 02 [facility] 2022-03-18 2022-03-19 Outpatient ALLEN BarreraPL MHPL [id number] 22:20:40 02:05:00 Thania 02 [facility] 2022-03-18 2022-03-19 Emergency E BARRERA, MHBL MHBL [id number] MHBL 22:20:00 02:05:00 REEVA 2022-03-14 2022-03-14 [facility] [id number] Memoria 00:15:07 05:00:00 liang Demarco 01 [facility] 2022-03-14 2022-03-14 [facility] [id number] Memoria 00:15:07 05:00:00 liang Demarco 01 [facility] 2022-03-13 2022-03-14 Outpatient JUAN Thomas MHPL [id number] 19:15:07 00:00:00 Abdiwahab [facility] 2022-03-13 2022-03-14 Outpatient JUAN ThomasPL [id number] 19:15:07 00:00:00 Abdiwahab 01 [facility] 2022-03-13 2022-03-14 Emergency E LUIS, MHBL BL [id number] MHBL 19:15:00 00:00:00 ABDIWAHAB 2022-03-11 2022-03-11 [facility] [id number] [place] 11:25:00 11:25:00 PIETRO 0713 [facility] 2022-02-24 2022-02-24 [facility] [id number] [place] 09:53:24 10:41:58 [facility] 2022-02-24 2022-02-24 Outpatient [facility] [id number] [place] 10:34:06 10:41:26 [facility] 2022-02-23 2022-02-24 Outpatient SHILPA, [facility] [id number] [place] 14:37:42 07:15:27 [facility] 2022-02-24 2022-02-24 [facility] [id number] [place] 00:00:00 00:00:00 [facility] 2022-02-10 2022-02-10 [facility] [id number] [facility] 00:00:00 00:00:00 [facility] 2022-02-10 2022-02-10 Outpatient ANGELA, [facility] [id number] [place] 00:00:00 00:00:00 [facility] 2022-02-05 2022-02-06 Emergency 1 [facility] [id number] [place] 23:16:00 01:00:00 [facility] 2022-02-05 2022-02-06 [facility] [id number] [place] 23:16:00 01:00:00 [facility] 2022-02-05 2022-02-05 Emergency [facility] [id number] [place] 23:32:16 23:55:28 [facility] 2022-02-05 2022-02-05 Emergency [facility] [id number] [place] 21:30:24 21:41:51 [facility] 2022-02-04 2022-02-04 [facility] [id number] [place] 13:16:26 14:54:03 SUJOYEETA [facility] 2022-01-20 2022-01-20 [facility] [id number] [place] 08:08:28 09:07:11 [facility] 2022-01-20 2022-01-20 Outpatient [facility] [id number] [place] 08:40:24 08:55:12 [facility] 2022-01-20 2022-01-20 Outpatient [facility] [id number] [place] 00:00:00 00:00:00 [facility] 2022-01-20 2022-01-20 [facility] [id number] [place] 00:00:00 00:00:00 [facility] 2022-01-02 2022-01-02 Outpatient NATHALIEKATHRYN [facility] [id number] [place] 00:00:00 00:00:00 [facility] 2021-12-30 2021-12-30 [facility] [id number] [place] 09:12:55 10:28:29 [facility] 2021-12-30 2021-12-30 Outpatient [facility] [id number] [place] 09:43:20 09:55:06 [facility] 2021-12-30 2021-12-30 [facility] [id number] [place] 00:00:00 00:00:00 [facility] 2021-12-18 2021-12-18 Outpatient [facility] PRIV PRIV [id number] [facility] 11:17:00 11:17:00 _Diggs_R [id number] Medic al 2021-12-18 2021-12-18 Outpatient [facility] PRIV PRIV [id number] [facility] 11:17:00 11:17:00 _Diggs_R [id number] Medic al 2021-12-18 2021-12-18 Outpatient [facility] PRIV PRIV [id number] [facility] 11:17:00 11:17:00 _Diggs_R [id number] Medic al 2021-12-18 2021-12-18 Outpatient Longo, PRIV PRIV [id number] a-c 00:00:00 00:00:00 Kaycee [id number]-11ec-b [id number] 2021-12-18 2021-12-18 Kaycee [facility]00 00:00:00 [facility] - Medic al FACULTY INSTRUCTOR: 4301 [facility] _[facility] [address], [place] [address] , Ph. 2021-12-16 2021-12-16 Outpatient 3 PRESLEY PERAZA [facility] [id number] [place] 13:29:29 14:47:42 Health 2021-12-16 2021-12-16 Outpatient PERAZA, PRESLEY [facility] [id number] [place] 13:29:29 14:47:42 Health 2021-12-16 2021-12-16 Outpatient PERAZA, PRESLEY [facility] [id number] [place] 00:00:00 00:00:00 [facility] 2021-12-05 2021-12-05 [facility] Chloé, 1.2.840.1 [id number] Methodi 09:34:18 23:59:00 Encounter Laith 87808.1.1 729 s t Peter 3.430.2.7 Hospit a .3.977139 l .8 2021-12-05 2021-12-05 Travel 1.2.840.1 1.2.791.373 8103 [id number] Methodi 00:00:00 00:00:[address] 3.430.2.7 0.2.7.3.698 Ho spita .3.331455 084.8 l .8 2021-11-27 2021-11-27 Outpatient [facility] PRIV PRIV [id number] [facility] 01:52:00 01:52:00 _Diggs_R [id number] Medic al 2021-11-27 2021-11-27 Travel 1.2.840.1 1.2.755.607 8327 833069 Methodi 00:00:00 00:00:[address] 3.430.2.7 0.2.7.3.698 Ho spita .3.752740 084.8 l .8 2021-11-27 2021-11-27 Transcribe Donta 1.2.840.1 [id number] Methodi 00:00:00 00:00:00 Orders Kaycee Higgins 78105.1.1 945 3.430.2.7 [facility]04[facility]29 [facility] .8 2021-11-25 2021-11-25 Outpatient [facility] PRIV PRIV [id number] [facility] 05:22:00 05:22:00 _Diggs_R [id number] Medic al 2021-11-25 2021-11-25 [facility] [id number] [place] 00:00:00 00:00:00 [facility] 2021-11-25 2021-11-25 Kayceemilo [facility] 00:00:00 00:00:00 [facility] - Medic al FACULTY INSTRUCTOR: [address], [address] [address] , Ph. 2021-11-25 2021-11-25 Outpatient Donta, PRIV PRIV [id number] 00:00:00 00:00:00 Kaycee [id number]-a [id number] 2021-11-24 2021-11-24 Outpatient [facility] PRIV PRIV [id number] [facility] 09:14:00 09:14:00 _Diggs_R [id number] Medic al 2021-11-12 2021-11-12 Outpatient [facility] PRIV PRIV [id number] [facility] 10:32:00 10:32:00 _Diggs_R [id number] Medic al 2021-11-11 2021-11-11 [facility] [id number] [place] 15:32:00 17:59:00 [facility] 2021-11-11 2021-11-11 [facility] [id number] [place] 09:22:13 10:07:10 [facility] 2021-11-11 2021-11-11 Outpatient [facility] [id number] [place] 09:43:27 09:47:12 [facility] 2021-11-11 2021-11-11 [place] [id number] [place] 00:00:00 00:00:00 [facility] 2021-11-08 2021-11-09 Emergency Timur 1.2.840.1 [id number] Methodi 21:17:00 03:19:00 Gabriella damon 23554.1.1 [facility] 3.430.2.7 Hospit a .3.322382 l .8 2021-10-27 2021-10-27 [place] [id number] [place] 15:38:32 16:13:58 [facility] 2021-10-27 2021-10-27 Outpatient [facility] [id number] [place] 15:28:33 15:53:26 Health 2021-10-27 2021-10-27 [facility] [id number] [place] 15:00:16 15:00:16 [facility] 2021-10-27 2021-10-27 [facility] [id number] [place] 00:00:00 00:00:00 [facility] 2021-10-27 2021-10-27 [facility] [id number] [place] 00:00:00 00:00:00 [facility] 2021-09-14 2021-09-14 Emergency AICHA COREAY [facility] [id number] [place] 00:00:00 00:00:[address] 2021-08-22 2021-08-22 Emergency SAIGE [facility] [id number] [place] 00:00:00 00:00:00 CASH [address] 2021-07-22 2021-07-22 Outpatient [facility] [id number] [place] 00:00:00 00:00:00 [facility] 2021-07-17 2021-07-17 [facility] [id number] [place] 07:38:50 15:27:52 [facility] 2021-05-16 2021-05-16 [facility] [id number] [place] 12:55:35 13:20:54 [facility] 2021-04-03 2021-04-03 [facility] [id number] [place] 10:24:01 11:40:13 [facility] 2021-04-03 2021-04-03 Outpatient NORBERTOALI, [facility] [id number] [place] 11:20:44 11:27:55 [facility] 2021-04-03 2021-04-03 Outpatient SUZETTE, [facility] [id number] [place] 00:00:00 00:00:00 [facility] 2021-02-10 2021-02-10 Outpatient SUZETTE, [facility] [id number] [place] 07:38:38 14:43:22 [facility] 2021-01-20 2021-01-21 Emergency nullFlavo [facility] [id number] Memoria 21:01:36 01:40:00 [place] 00 [facility] 2021-01-20 2021-01-21 [facility] [id number] Memoria 21:01:36 01:40:00 r [place] 00 [facility] 2021-01-20 2021-01-20 Outpatient Paul, [facility] [id number] 16:01:36 20:40:00 Domingo Guzman 2021-01-20 2021-01-20 Emergency E PAUL, [facility] [address] [facility] 16:01:00 20:40:00 [facility] 2021-01-20 2021-01-20 [facility] [id number] [place] 10:49:10 12:23:17 [facility] 2021-01-20 2021-01-20 Outpatient [facility] [id number] [place] 11:36:48 11:56:15 [facility] 2021-01-09 2021-01-09 [facility] [id number] [place] 11:01:40 13:18:27 [facility] 2021-01-02 2021-01-02 Emergency MARINO, [facility] [id number] [place] 00:00:00 00:00:00 MICHELLE [address] 2020-12-25 2020-12-25 Outpatient LAKESHIA [facility] [id number] [place] 00:00:00 00:00:00 GÓMEZ Moreau [facility] 2020-12-25 2020-12-25 Outpatient YING GALVAN [facility] [id number] [place] 00:00:00 00:00:00 [facility] 2020-12-10 2020-12-10 Outpatient TATO CONNOLLY [facility] [id number] [place] 00:00:00 00:00:00 [facility] 2020-11-28 2020-11-28 Outpatient ABNER MORALES [facility] [id number] [place] 09:52:10 10:35:59 [facility] 2020-11-28 2020-11-28 [facility] [id number] [place] 08:52:57 09:35:01 [facility] 2020-11-28 2020-11-28 [facility] [id number] [place] 00:00:00 00:00:00 [facility] 2020-11-26 2020-11-26 Outpatient LAKESHIA [facility] [id number] [place] 10:26:31 12:37:58 Y, GÓMEZ [facility] 2020-11-26 2020-11-26 Outpatient LAKESHIA [facility] [id number] [place] 00:00:00 00:00:00 Y, GÓMEZ [facility] 2020-11-22 2020-11-22 [facility] [id number] [place] 09:06:46 09:06:46 [facility] 2020-11-21 2020-11-21 [facility] [id number] [place] 00:00:00 00:00:00 [facility] 2020-11-21 2020-11-21 [facility]patient [facility] [id number] [place] 00:00:00 00:00:00 [facility] 2020-11-18 2020-11-18 Outpatient [facility] [id number] [place] 07:34:19 14:53:54 [facility] 2020-11-14 2020-11-14 [facility] [id number] [place] 00:00:00 00:00:00 [facility] 2020-11-12 2020-11-12 [facility]patient [facility] [id number] [place] 19:20:48 23:59:00 [facility] 2020-11-07 2020-11-07 [facility] [id number] [place] 10:15:36 16:17:47 [facility] 2020-11-07 2020-11-07 [facility] [id number] [place] 00:00:00 00:00:00 [facility] 2020-11-06 2020-11-06 Outpatient ANDREW, [facility] [id number] [place] 09:10:44 09:31:28 [facility] 2020-11-06 2020-11-06 Outpatient ANDREW, [facility] [id number] [place] 09:03:03 09:13:38 [facility] 2020-11-06 2020-11-06 Outpatient ANDREW [facility] [id number] [place] 00:00:00 00:00:00 [facility] 2020-11-06 2020-11-06 Outpatient JOAN, [facility] [id number] [place] 00:00:00 00:00:00 [facility] 2020-11-04 2020-11-04 [facility] [id number] [place] 07:18:00 08:55:00 [facility] 2020-10-31 2020-10-31 [facility] [id number] [place] 00:00:00 00:00:00 [facility] 2020-10-24 2020-10-24 [facility] [id number] [place] 08:03:09 08:03:09 [facility] 2020-10-23 2020-10-23 Outpatient LAKESHIA [facility] [id number] [place] 07:29:24 12:11:59 Y, GÓMEZ [facility] 2020-10-23 2020-10-23 Outpatient TORO, [facility] [id number] [place] 00:00:00 00:00:00 [facility] 2020-10-23 2020-10-23 Outpatient [facility] [id number] [place] 00:00:00 00:00:00 [facility] 2020-10-17 2020-10-17 [facility] [id number] [place] 00:00:00 00:00:00 [facility] 2020-10-10 2020-10-10 [facility] [id number] [place] 07:17:49 15:53:36 [facility] 2020-10-03 2020-10-03 [facility] [id number] [place] 07:29:37 07:29:37 [facility] 2020-09-26 2020-09-26 [facility] [id number] [place] 07:11:20 07:11:20 DIPAK [facility] 2020-07-24 2020-07-24 [facility] [id number] [place] 00:00:00 00:00:00 VICTORIA [facility] 2020-01-25 2020-01-25 Emergency SAIGE, [facility] [id number] [place] 00:00:00 00:00:00 CASH Dugan [facility] i 2019-11-01 2019-11-01 Outpatient [facility] [id number] [place] 00:00:00 00:00:00 [facility] 2019-10-19 2019-10-19 Outpatient [facility] [id number] [place] 00:00:00 00:00:00 Health 2019-10-11 2019-10-11 Outpatient [facility] [id number] [place] 00:00:00 00:00:00 [facility] 2019-09-28 2019-09-28 Outpatient [facility] [id number] [place] 00:00:00 00:00:00 Health 2019-09-22 2019-09-22 Outpatient [facility] [id number] [place] 00:00:00 00:00:00 Health 2019-09-22 2019-09-22 Outpatient [facility] [id number] [place] 00:00:00 00:00:00 [facility] 2019-09-08 2019-09-08 Outpatient [facility] [id number] [place] 00:00:00 00:00:00 Health 2019-09-06 2019-09-06 Outpatient [facility] [id number] [place] 00:00:00 00:00:00 Health 2019-08-29 2019-08-29 Outpatient [facility] [id number] [place] 08:07:37 08:07:37 Health 2019-08-11 2019-08-11 Outpatient [facility] [id number] [place] 14:34:35 14:34:35 Health 2019-08-11 2019-08-11 Outpatient [facility] [id number] [place] 14:10:42 14:10:42 Health 2019-08-11 2019-08-11 Outpatient [facility] [id number] [place] 00:00:00 00:00:00 Health 2019-08-03 2019-08-03 Outpatient [facility] [id number] [place] 10:45:43 10:45:43 Health 2019-08-01 2019-08-01 Outpatient [facility] [id number] [place] 08:17:31 08:17:31 [facility] 2019-07-12 2019-07-12 Outpatient [facility] [id number] [place] 13:34:12 13:34:12 [facility] 2019-07-10 2019-07-10 Outpatient [facility] [id number] [place] 10:18:59 10:18:59 [facility] 2019-07-10 2019-07-10 Outpatient [facility] [id number] [place] 09:23:42 09:23:42 [facility] 2019-07-10 2019-07-10 Outpatient [facility] [id number] [place] 00:00:00 00:00:00 [facility] 2019-07-05 2019-07-05 Outpatient [facility] [id number] [place] 00:00:00 00:00:00 [facility] 2019-06-21 2019-06-21 Outpatient [facility] [id number] [place] 14:43:36 14:43:36 [facility] 2019-05-31 2019-05-31 Outpatient [facility] [id number] [place] 09:01:41 09:01:41 [facility] 2019-05-31 2019-05-31 Outpatient [facility] [id number] [place] 00:00:00 00:00:00 [facility] 2019-04-21 2019-04-21 Outpatient [facility] [id number] [place] 00:00:00 00:00:00 [facility] 2019-04-14 2019-04-14 Outpatient [facility] [id number] [place] 14:55:03 14:55:03 [facility] 2019-04-07 2019-04-07 Outpatient [facility] [id number] [place] 00:00:00 00:00:00 [facility] 2019-04-07 2019-04-07 Outpatient [facility] [id number] [place] 00:00:00 00:00:00 [facility] 2019-04-07 2019-04-07 Outpatient [facility] [id number] [place] 00:00:00 00:00:00 [facility] 2019-04-06 2019-04-06 Outpatient [facility] [id number] [place] 00:00:00 00:00:00 [facility] 2019-04-05 2019-04-05 Outpatient [facility] [id number] [place] 00:00:00 00:00:00 [facility] 2019-03-29 2019-03-29 Outpatient [facility] [id number] [place] 15:23:28 15:23:28 [facility] 2019-03-28 2019-03-28 Outpatient [facility] [id number] [place] 16:10:03 16:10:03 [facility] 2019-03-28 2019-03-28 Outpatient [facility] [id number] [place] 14:56:12 14:56:12 [facility] 2019-03-28 2019-03-28 Outpatient [facility] [id number] [place] 00:00:00 00:00:00 [facility] 2019-03-24 2019-03-24 Outpatient [facility] [id number] [place] 15:03:38 15:03:38 [facility] 2019-03-10 2019-03-10 Outpatient [facility] [id number] [place] 00:00:00 00:00:00 [facility] 2019-03-09 2019-03-09 Outpatient [facility] [id number] [place] 14:32:57 14:32:57 [facility] 2019-03-03 2019-03-03 Outpatient [facility] [id number] [place] 13:53:33 13:53:33 [facility] 2019-02-23 2019-02-23 Outpatient [facility] [id number] [place] 13:41:45 13:41:45 [facility] 2019-02-16 2019-02-16 Outpatient [facility] [id number] [place] 14:30:15 14:30:15 [facility] 2019-02-09 2019-02-09 Outpatient [facility] [id number] [place] 00:00:00 00:00:00 [facility] 2019-01-18 2019-01-18 Outpatient [facility] [id number] [place] 15:15:44 15:15:44 [facility] 2019-01-11 2019-01-11 Outpatient [facility] [id number] [place] 00:00:00 00:00:00 [facility] 2019-01-04 2019-01-04 Outpatient [facility] [id number] [place] 00:00:00 00:00:00 [facility] 2019-01-02 2019-01-02 Outpatient [facility] [id number] [place] 10:29:45 10:29:45 [facility] 2018-12-20 2018-12-20 Outpatient [facility] [id number] [place] 14:29:22 14:29:22 [facility] 2018-12-12 2018-12-12 Outpatient [facility] [id number] [place] 00:00:00 00:00:00 [facility] 2018-12-07 2018-12-07 Outpatient [facility] [id number] [place] 00:00:00 00:00:00 [facility] 2018-11-18 2018-11-18 Outpatient [facility] [id number] [place] 00:00:00 00:00:00 [facility] 2018-10-27 2018-10-27 Outpatient [facility] [id number] [place] 00:00:00 00:00:00 [facility] 2018-10-25 2018-10-25 Outpatient [facility] [id number] [place] 09:12:01 09:12:01 [facility] 2018-10-25 2018-10-25 Outpatient [facility] [id number] [place] 00:00:00 00:00:00 [facility] 2018-09-29 2018-09-29 Outpatient [facility] [id number] [place] 11:41:40 11:41:40 [facility] 2018-09-22 2018-09-22 Outpatient [facility] [id number] [place] 00:00:00 00:00:00 [facility] 2018-09-21 2018-09-21 Outpatient [facility] [id number] [place] 13:17:51 13:17:51 [facility] 2018-08-08 2018-08-08 Outpatient [facility] [id number] [place] 15:08:56 15:08:56 [facility] 2018-08-08 2018-08-08 Outpatient [facility] [id number] [place] 13:50:11 13:50:11 [facility] 2018-04-20 2018-04-20 Outpatient [facility] [id number] [place] 00:00:00 00:00:00 [facility] 2018-04-11 2018-04-11 Outpatient [facility] [id number] [place] 00:00:00 00:00:00 [facility] 2018-03-24 2018-03-24 Outpatient [facility] [id number] [place] 14:30:08 14:30:08 [facility] 2018-03-11 2018-03-11 Outpatient [facility] [id number] [place] 08:59:56 08:59:56 [facility] 2018-03-09 2018-03-09 Outpatient [facility] [id number] [place] 15:10:05 15:10:05 [facility] 2018-02-25 2018-02-25 Outpatient [facility] [id number] [place] 00:00:00 00:00:00 [facility] 2018-02-22 2018-02-22 Outpatient [facility] [id number] [place] 09:47:44 09:47:44 [facility] 2018-02-01 2018-02-01 Outpatient [facility] [id number] [place] 15:31:00 15:31:00 [facility] 2018-02-01 2018-02-01 Outpatient [facility] [id number] [place] 00:00:00 00:00:00 [facility] 2018-01-28 2018-01-28 Outpatient [facility] [id number] [place] 14:25:09 14:25:09 [facility] 2018-01-13 2018-01-13 Outpatient [facility] [id number] [place] 00:00:00 00:00:00 [facility] 2018-01-07 2018-01-07 Outpatient [facility] [id number] [place] 00:00:00 00:00:00 [facility] 2018-01-06 2018-01-06 Outpatient [facility] [id number] [place] 08:49:34 08:49:34 [facility] 2018-01-03 2018-01-03 Outpatient [facility] [id number] [place] 09:36:54 09:36:54 [facility] 2017-12-23 2017-12-23 Outpatient [facility] [id number] [place] 09:40:46 09:40:46 [facility] 2017-12-09 2017-12-09 Outpatient [facility] [id number] [place] 15:13:23 15:13:23 [facility] 2017-11-25 2017-11-25 Outpatient [facility] [id number] [place] 00:00:00 00:00:00 [facility] 2017-11-24 2017-11-24 Outpatient [facility] [id number] [place] 15:38:59 15:38:59 [facility] 2017-11-24 2017-11-24 Outpatient [facility] [id number] [place] 00:00:00 00:00:00 [facility] 2017-11-22 2017-11-22 Outpatient [facility] [id number] [place] 15:36:55 15:36:55 [facility] 2017-11-17 2017-11-17 Outpatient [facility] [id number] [place] 00:00:00 00:00:00 [facility] 2017-11-11 2017-11-11 Outpatient [facility] [id number] [place] 14:05:46 14:05:46 [facility] 2017-11-10 2017-11-10 Outpatient [facility] [id number] [place] 00:00:00 00:00:00 [facility] 2017-11-03 2017-11-03 Outpatient [facility] [id number] [place] 00:00:00 00:00:00 [facility] 2017-10-27 2017-10-27 Outpatient [facility] [id number] [place] 00:00:00 00:00:00 [facility] 2017-10-20 2017-10-20 Outpatient [facility] [id number] [place] 00:00:00 00:00:00 [facility] 2017-10-13 2017-10-13 Outpatient [facility] [id number] [place] 00:00:00 00:00:00 [facility] 2017-10-08 2017-10-08 Outpatient [facility] [id number] [place] 13:12:58 13:12:58 [facility] 2017-10-08 2017-10-08 Outpatient [facility] [id number] [place] 00:00:00 00:00:00 [facility] 2017-10-04 2017-10-04 Outpatient [facility] [id number] [place] 00:00:00 00:00:00 [facility] 2017-10-01 2017-10-01 Outpatient [facility] [id number] [place] 16:05:17 16:05:17 [facility] 2017-10-01 2017-10-01 Outpatient [facility] [id number] [place] 15:08:55 15:08:55 [facility] 2017-09-09 2017-09-09 Outpatient [facility] [id number] [place] 09:51:17 09:51:17 [facility] 2017-09-08 2017-09-08 Outpatient [facility] [id number] [place] 14:31:52 14:31:52 [facility] 2017-07-28 2017-07-28 Outpatient [facility] [id number] [place] 09:51:18 09:51:18 [facility] 2017-07-18 2017-07-18 Emergency [facility] [id number] [place] 14:53:14 14:53:14 [facility] 2017-07-18 2017-07-18 Inpatient [facility] [id number] [place] 12:13:57 12:13:57 [facility] 2017-07-07 2017-07-07 Outpatient [facility] [id number] [place] 14:50:08 14:50:08 [facility] 2017-06-11 2017-06-11 Outpatient [facility] [id number] [place] 13:28:35 13:28:35 [facility] 2017-06-10 2017-06-10 Outpatient [facility] [id number] [place] 15:39:29 15:39:29 [facility] 2017-06-08 2017-06-08 Outpatient [facility] [id number] [place] 13:05:47 13:05:47 [facility] 2017-06-04 2017-06-04 Outpatient [facility] [id number] [place] 12:40:45 12:40:45 [facility] 2017-06-03 2017-06-03 Outpatient [facility] [id number] [place] 00:00:00 00:00:00 [facility] 2017-06-01 2017-06-01 Outpatient [facility] [id number] [place] 12:36:26 12:36:26 [facility] 2017-05-14 2017-05-14 Outpatient [facility] [id number] [place] 08:24:03 08:24:03 [facility] 2017-05-14 2017-05-14 Outpatient [facility] [id number] [place] 07:23:07 07:23:07 [facility] 2017-04-30 2017-04-30 Outpatient [facility] [id number] [place] 00:00:00 00:00:00 [facility] 2017-04-26 2017-04-26 Outpatient [facility] [id number] [place] 00:00:00 00:00:00 [facility] 2017-04-14 2017-04-14 Outpatient [facility] [id number] [place] 10:24:05 10:24:05 [facility] 2017-04-08 2017-04-08 Outpatient [facility] [id number] [place] 00:00:00 00:00:00 [facility] 2017-04-07 2017-04-07 Outpatient [facility] [id number] [place] 14:24:22 14:24:22 [facility] 2017-04-02 2017-04-02 Outpatient [facility] [id number] [place] 00:00:00 00:00:00 [facility] 2017-03-30 2017-03-30 Outpatient [facility] [id number] [place] 00:00:00 00:00:00 [facility] 2017 2017 Outpatient [facility] [id number] [place] 11:11:06 11:11:06 [facility] 2017-03-12 2017-03-12 Outpatient [facility] [id number] [place] 13:12:40 13:12:40 [facility] 2017-02-19 2017-02-19 Outpatient [facility] [id number] [place] 00:00:00 00:00:00 [facility] 2017-02-03 2017-02-03 Outpatient [facility] [id number] [place] 14:38:51 14:38:51 [facility] 2017-01-18 2017-01-18 Outpatient [facility] [id number] [place] 00:00:00 00:00:00 [facility] 2017-01-13 2017-01-13 Outpatient [facility] [id number] [place] 00:00:00 00:00:00 [facility] 2016-12-30 2016-12-30 Outpatient [facility] [id number] [place] 08:21:55 08:21:55 [facility] 2016-12-28 2016-12-28 Outpatient [facility] [id number] [place] 13:12:13 13:12:13 [facility] 2016-12-16 2016-12-16 Outpatient [facility] [id number] [place] 12:31:42 12:31:42 [facility] 2016-12-14 2016-12-14 Outpatient [facility] [id number] [place] 00:00:00 00:00:00 [facility] 2016-11-30 2016-11-30 Outpatient [facility] [id number] [place] 13:19:09 13:19:09 [facility] 2016-11-26 2016-11-26 Outpatient [facility] [id number] [place] 13:39:33 13:39:33 [facility] 2016-11-26 2016-11-26 Outpatient [facility] [id number] [place] 13:37:06 13:37:06 [facility] 2016-11-23 2016-11-23 Outpatient [facility] [id number] [place] 13:27:22 13:27:22 [facility] 2016-11-16 2016-11-16 Outpatient [facility] [id number] [place] 08:29:28 08:29:28 [facility] 2016-11-06 2016-11-06 Outpatient [facility] [id number] [place] 14:10:51 14:10:51 [facility] 2016-10-13 2016-10-13 Outpatient [facility] [id number] [place] 11:00:58 11:00:58 [facility] 2016-10-08 2016-10-08 Outpatient [facility] [id number] [place] 12:56:54 12:56:54 [facility] 2016-10-08 2016-10-08 Outpatient [facility] [id number] [place] 12:49:38 12:49:38 [facility] 2016-10-07 2016-10-07 Outpatient [facility] [id number] [place] 15:36:29 15:36:29 [facility] 2016-10-07 2016-10-07 Outpatient [facility] [id number] [place] 14:16:34 14:16:34 [facility] 2016-09-30 2016-09-30 Outpatient [facility] [id number] [place] 09:07:30 09:07:30 [facility] 2016-09-11 2016-09-11 Outpatient [facility] [id number] [place] 11:28:30 11:28:30 Health 2016-08-22 2016-08-22 Emergency [facility] [id number] [place] 22:23:29 22:23:29 Health 2016-08-22 2016-08-22 Emergency [facility] [id number] [place] 19:44:23 19:44:23 Health 2016-08-22 2016-08-22 Emergency [facility] [id number] [place] 19:17:50 19:17:50 Health 2016-08-22 2016-08-22 Emergency [facility] [id number] [place] 19:15:09 19:15:09 [facility] 2015-09-18 2015-09-19 [facility] [id number] [place] 00:04:00 22:29:00 r [place] 04 [facility] 2015-09-18 2015-09-19 [facility] [id number] [place] 00:04:00 22:29:00 r [place] 04 [facility] 2015-09-17 2015-09-19 Outpatient JANICE Flannery MHSE [id number] 18:04:00 16:29:00 [place] [id number] 2015-08-26 2015-08-26 [facility] [id number] [place] 16:33:00 22:17:00 Emergency r [place] 03 [facility] 2015-08-26 2015-08-26 [facility] [id number] [place] 16:33:00 22:17:00 Emergency r [place] 03 [facility] 2015-08-26 2015-08-26 Outpatient Riaz, MHSE MHSE [id number] 10:33:00 16:17:00 Natocaridad Mcqueen 2015-08-15 2015-08-16 [facility] [id number] [place] 11:50:00 22:33:00 [place] 02 [facility] 2015-08-15 2015-08-16 [facility] [id number] [place] 11:50:00 22:33:00 r [place] 02 [facility] 2015-08-15 2015-08-16 Outpatient Tommy Del Toro MHSE MHSE [id number] 05:50:00 16:33:00 Cly[place] 02 2015-06-24 2015-07-24 [facility] [id number] [place] 20:15:00 05:59:00 Recurring r [place] 01 [facility] 2015-06-24 2015-07-24 [facility] [id number] [place] 20:15:00 05:59:00 Recurring r [place] 01 l [facility] 2015-06-24 2015-07-23 Outpatient Hakan, MHSE MHSE [id number] 15:15:00 23:59:00 Sam W 2015-06-24 2015-06-25 [facility] [id number] [place] 14:21:00 04:59:00 r [place] 01 l [facility] 2015-06-24 2015-06-25 [facility] [id number] [place] 14:21:00 04:59:00 r [place] 01 l [facility] 2015-06-24 2015-06-24 Outpatient Hakan, MHSE MHSE [id number] 09:21:00 23:59:00 Sam W 2015-05-23 2015-06-22 [facility] [id number] [place] 15:41:00 04:59:00 Recurring r [place] 00 l [facility] 2015-05-23 2015-06-22 [facility] [id number] [place] 15:41:00 04:59:00 Recurring r [place] 00 l [facility] 2015-05-23 2015-06-21 Outpatient Hakan, MHSE [place] [id number] 10:41:00 23:59:00 Sam W 2015-06-10 2015-06-10 [facility] [id number] [place] 11:23:00 14:36:00 Outpatient r [place] 00 l [facility] 2015-06-10 2015-06-10 [facility] [id number] [place] 11:23:00 14:36:00 Outpatient r [place] 00 l [facility] 2015-06-10 2015-06-10 Outpatient Mcclendon, MHSE MHSE [id number] 06:23:00 09:36:00 Sam W Results Test Description Test Time Test Comments Results Result Comments Source HEMATOLOGY 2022-03-19 05:01:00 Test Item Value Reference Range Interpretation Comme nts RBC (test code = RBC) 5.28 4.20-5.40 [facility]pMRGQTHMRXF3705-06-49 05:01:00 Test Item Value Reference Range Interpretation Comments Hgb (test code = Hgb) 14.1 12.0-16.0 [facility]ZibczhzOMKIYQDMBB1132-60-12 05:01:00 Test Item Value Reference Range Interpretation Comments Hct (test code = Hct) 43.0 36.0-48.0 [facility]wayNdtydeyRMPKVGIDZZ7422-88-69 05:01:00 Test Item Value Reference Range Interpretation Comments Hct (test code = Hct) 43.0 36.0-48.0 [facility]wayFiyotkeLIPHHTLHYX9025-69-54 05:01:00 Test Item Value Reference Range Interpretation Comments MCV (test code = MCV) 81.4 80.0-98.0 [facility]wayVqkhdxgAHAHZJUSPV0346-46-34 05:01:00 Test Item Value Reference Range Interpretation Comments MCH (test code = MCH) 26.7 pg 27.0-31.0 [facility]wayVumtozeODCFLYKAUJ9390-53-74 05:01:00 Test Item Value Reference Range Interpretation Comments MCHC (test code = MCHC) 32.9 32.0-36.0 [facility]wayFzscvjsIXEDZXTKPC3909-72-58 05:01:00 Test Item Value Reference Range Interpretation Comments RDW (test code = RDW) 14.1 11.5-14.5 [facility]wayVwtabepKKSYZPLDZL7919-48-89 05:01:00 Test Item Value Reference Range Interpretation Comments Platelet (test code = Platelet) 237 133-450 [facility]wayMyckaswLDVDGKOZII6338-28-71 05:01:00 Test Item Value Reference Range Interpretation Comments MPV (test code = MPV) 9.1 7.4-10.4 [facility]wayJwfvhpoNQTVVQFGQL9394-77-29 05:01:00 Test Item Value Reference Range Interpretation Comments PT (test code = PT) 12.4 s 12.0-14.7 [facility]wayZfigzgjYNKPRHQOIU5114-14-07 05:01:00 Test Item Value Reference Range Interpretation Comments INR (test code = INR) 0.93 1 0.85-1.17 [facility]wayTvyobbiSSQBHRRNOQ4745-45-22 05:01:00 Test Item Value Reference Range Interpretation Comments PTT (test code = PTT) 26.5 s 22.9-35.8 [facility]wayStjsoyxEJTVNYQAPN6995-36-86 05:01:00 Test Item Value Reference Range Interpretation Comments MCV (test code = MCV) 81.4 80.0-98.0 [place] 714732-07-21 05:01:00 Test Item Value Reference Range Interpretation Comments Segs (test code = Segs) 40.0 45.0-75.0 [facility]wayBhulpahIZAPPUIMEU2577-15-64 05:01:00 Test Item Value Reference Range Interpretation Comments Lymphocytes (test code = Lymphocytes) 49.7 20.0-40.0 [place] 714732-07-21 05:01:00 Test Item Value Reference Range Interpretation Comments Monocytes (test code = Monocytes) 8.5 2.0-12.0 [place] 714732-07-21 05:01:00 Test Item Value Reference Range Interpretation Comments Eosinophils (test code = 1.0 See_Comment [A utomated message] The Eosinophils) system which ge nerated this result tra nsmitted reference range : <=4.0. The reference r kat was not used to int erpret this result as normal/abnormal . [facility]wayVwraedwBAAXFCEWHM2421-35-43 05:01:00 Test Item Value Reference Range Interpretation Comments Basophils (test code = 0.8 See_Comment [Aut omated message] The Basophils) system which ge nerated this result tra nsmitted reference range : <=1.0. The reference r kat was not used to int erpret this result as normal/abnormal . [facility] LakewayIcsfdorAPEGEXTKHA6059-55-20 05:01:00 Test Item Value Reference Range Interpretation Comments Neutrophils # (test code = Neutrophils 2.5 1.5-8.1 #) [facility]wayKssstkhJRBZDISFQA1544-39-32 05:01:00 Test Item Value Reference Range Interpretation Comments Lymphocytes # (test code = Lymphocytes 3.2 1.0-5.5 #) [facility]wayNztydhjYLXPOFOVTO9778-75-56 05:01:00 Test Item Value Reference Range Interpretation Comments Monocytes # (test code 0.5 See_Comment [Aut omated message] The = Monocytes #) system which generated this result tra nsmitted reference range : <=0.8. The reference r kat was not used to int erpret this result as normal/abnormal . [facility]wayFxdxfotEKDFEDVZRV5830-14-24 05:01:00 Test Item Value Reference Range Interpretation Comments Eosinophils # (test code 0.1 See_Comment [A utomated message] The = Eosinophils #) system whic h generated this result tra nsmitted reference range : <=0.5. The reference r kat was not used to int erpret this result as normal/abnormal . [facility] LakewayOmxemrjCABZVKTSAB7742-81-89 05:01:00 Test Item Value Reference Range Interpretation Comments MCH (test code = MCH) 26.7 pg 27.0-31.0 [facility] LakewayLbzoqetSRSNDFNAKE4897-70-37 05:01:00 Test Item Value Reference Range Interpretation Comments MCHC (test code = MCHC) 32.9 32.0-36.0 [facility] LakewayXzqvhkuFWNROMXYXB4224-99-43 05:01:00 Test Item Value Reference Range Interpretation Comments RDW (test code = RDW) 14.1 11.5-14.5 [facility] LakewayTnzeiojCBASEPRPQB0158-45-89 05:01:00 Test Item Value Reference Range Interpretation Comments Platelet (test code = Platelet) 237 133-450 [facility] LakewayTmvzlxlMBUYKLSMIK7538-52-88 05:01:00 Test Item Value Reference Range Interpretation Comments MPV (test code = MPV) 9.1 7.4-10.4 [facility]wayLzxxrtpWJUXVUGVDX4283-86-03 05:01:00 Test Item Value Reference Range Interpretation Comments PT (test code = PT) 12.4 s 12.0-14.7 [facility] LakewayFasxwvzKWLFLHPTTG3385-01-77 05:01:00 Test Item Value Reference Range Interpretation Comments INR (test code = INR) 0.93 1 0.85-1.17 [facility] LakewayNjlawuhBODLXSWKDA0869-22-50 05:01:00 Test Item Value Reference Range Interpretation Comments PTT (test code = PTT) 26.5 s 22.9-35.8 [place] [id number] 05:01:00 Test Item Value Reference Range Interpretation Comments Segs (test code = Segs) 40.0 45.0-75.0 [facility] LakewayIysaacrIJSOAUSIKO8419-42-81 05:01:00 Test Item Value Reference Range Interpretation Comments Lymphocytes (test code = Lymphocytes) 49.7 20.0-40.0 [place] 714732-07-21 05:01:00 Test Item Value Reference Range Interpretation Comments Monocytes (test code = Monocytes) 8.5 2.0-12.0 [facility] LakewayMyeitpzCZMPWBZKCL2372-99-13 05:01:00 Test Item Value Reference Range Interpretation Comments Eosinophils (test code = 1.0 See_Comment [A utomated message] The Eosinophils) system which ge nerated this result tra nsmitted reference range : <=4.0. The reference r kat was not used to int erpret this result as normal/abnormal . [facility] LakewayHqaiamiEGGXZKNSVR9848-96-25 05:01:00 Test Item Value Reference Range Interpretation Comments Basophils (test code = 0.8 See_Comment [Aut omated message] The Basophils) system which ge nerated this result tra nsmitted reference range : <=1.0. The reference r kat was not used to int erpret this result as normal/abnormal . [facility]wayYdbtvgoLRNOXDWGUJ7878-92-61 05:01:00 Test Item Value Reference Range Interpretation Comments Neutrophils # (test code = Neutrophils 2.5 1.5-8.1 #) [facility] LakewayWaaarjoGWXJIPPZCV1677-26-86 05:01:00 Test Item Value Reference Range Interpretation Comments Lymphocytes # (test code = Lymphocytes 3.2 1.0-5.5 #) [facility] LakewayPuirjmtDQVZZQVUOE5401-75-64 05:01:00 Test Item Value Reference Range Interpretation Comments Monocytes # (test code 0.5 See_Comment [Aut omated message] The = Monocytes #) system which generated this result tra nsmitted reference range : <=0.8. The reference r kat was not used to int erpret this result as normal/abnormal . [facility] LakewayAldrkahAYYQWIDTOV2283-49-93 05:01:00 Test Item Value Reference Range Interpretation Comments Eosinophils # (test code 0.1 See_Comment [A utomated message] The = Eosinophils #) system whic h generated this result tra nsmitted reference range : <=0.5. The reference r kat was not used to int erpret this result as normal/abnormal . [facility] [id number] 05:01:00 Test Item Value Reference Range Interpretation Comments HS Troponin I (test code = HS Troponin 5 I) [facility] [id number] 05:01:00 Test Item Value Reference Range Interpretation Comments Glucose Lvl (test code = Glucose Lvl) 96 70-99 [facility] [id number] 05:01:00 Test Item Value Reference Range Interpretation Comments BUN (test code = BUN) 16 7-22 [place] 172072-07-21 05:01:00 Test Item Value Reference Range Interpretation Comments Creatinine Lvl (test code = Creatinine 0.73 0.50-1.40 Lvl) [place] 172072-07-21 05:01:00 Test Item Value Reference Range Interpretation Comments Sodium Lvl (test code = Sodium Lvl) 141 135-145 [place] 172072-07-21 05:01:00 Test Item Value Reference Range Interpretation Comments Potassium Lvl (test code = Potassium 3.6 3.5-5.1 Lvl) [place] 172072-07-21 05:01:00 Test Item Value Reference Range Interpretation Comments Chloride Lvl (test code = Chloride Lvl) 110 95-109 [place] 172072-07-21 05:01:00 Test Item Value Reference Range Interpretation Comments CO2 (test code = CO2) 25 24-32 [place] 172072-07-21 05:01:00 Test Item Value Reference Range Interpretation Comments Calcium Lvl (test code = Calcium Lvl) 9.3 8.5-10.5 [place] 172072-07-21 05:01:00 Test Item Value Reference Range Interpretation Comments Total Protein (test code = Total 7.2 6.4-8.4 Protein) [place] 172072-07-21 05:01:00 Test Item Value Reference Range Interpretation Comments Albumin Lvl (test code = Albumin Lvl) 3.7 3.5-5.0 [place] 172072-07-21 05:01:00 Test Item Value Reference Range Interpretation Comments ALT (test code = ALT) 59 See_Comment [Auto mated message] The system which ge nerated this result transmit arvind reference range : <=65. The reference range was not used to interpr et this result as mario l/abnormal. [place] 172072-07-21 05:01:00 Test Item Value Reference Range Interpretation Comments AST (test code = AST) 24 See_Comment [Auto mated message] The system which ge nerated this result transmit arvind reference range : <=37. The reference range was not used to interpr et this result as mario l/abnormal. [place] 172072-07-21 05:01:00 Test Item Value Reference Range Interpretation Comments Alk Phos (test code = Alk Phos) 60 39-136 [facility]2022-07-21 05:01:00 Test Item Value Reference Range Interpretation Comments Bili Total (test code = Bili Total) 0.2 0.2-1.3 [place] 172072-07-21 05:01:00 Test Item Value Reference Range Interpretation Comments AGAP (test code = AGAP) 9.6 10.0-20.0 [facility]2022-07-21 05:01:00 Test Item Value Reference Range Interpretation Comments B/C Ratio (test code = B/C Ratio) 22 1 6-25 [facility]2022-07-21 05:01:00 Test Item Value Reference Range Interpretation Comments Globulin (test code = Globulin) 3.5 2.7-4.2 [facility]2022-07-21 05:01:00 Test Item Value Reference Range Interpretation Comments A/G Ratio (test code = A/G Ratio) 1.1 1 0.7-1.6 [place] 172072-07-21 05:01:00 Test Item Value Reference Range Interpretation Comments eGFR (test code = eGFR) 112 [facility] LakewayUxpiwikROOQSUMHBO5293-03-31 05:01:00 Test Item Value Reference Range Interpretation Comments WBC (test code = WBC) 6.4 3.7-10.4 [place] 714732-07-21 05:01:00 Test Item Value Reference Range Interpretation Comments RBC (test code = RBC) 5.28 4.20-5.40 [place] 714732-07-21 05:01:00 Test Item Value Reference Range Interpretation Comments Hgb (test code = Hgb) 14.1 12.0-16.0 [place] 714732-07-21 05:01:00 Test Item Value Reference Range Interpretation Comments Hct (test code = Hct) 43.0 36.0-48.0 [place] 714732-07-21 05:01:00 Test Item Value Reference Range Interpretation Comments MCV (test code = MCV) 81.4 80.0-98.0 [place] 714732-07-21 05:01:00 Test Item Value Reference Range Interpretation Comments MCH (test code = MCH) 26.7 pg 27.0-31.0 [facility] LakewayEedtubvUJQZAEDLSL6502-61-37 05:01:00 Test Item Value Reference Range Interpretation Comments MCHC (test code = MCHC) 32.9 32.0-36.0 [place] 714732-07-21 05:01:00 Test Item Value Reference Range Interpretation Comments RDW (test code = RDW) 14.1 11.5-14.5 [place] 714732-07-21 05:01:00 Test Item Value Reference Range Interpretation Comments Platelet (test code = Platelet) 237 133-450 [facility] LakewayCtgcvsjSLYZEUSOIA6376-47-99 05:01:00 Test Item Value Reference Range Interpretation Comments MPV (test code = MPV) 9.1 7.4-10.4 [place] 714732-07-21 05:01:00 Test Item Value Reference Range Interpretation Comments PT (test code = PT) 12.4 s 12.0-14.7 [place] 714732-07-21 05:01:00 Test Item Value Reference Range Interpretation Comments INR (test code = INR) 0.93 1 0.85-1.17 [facility] LakewayPkvhfyiHEUPEEIULL4050-41-33 05:01:00 Test Item Value Reference Range Interpretation Comments PTT (test code = PTT) 26.5 s 22.9-35.8 [place] 714732-07-21 05:01:00 Test Item Value Reference Range Interpretation Comments Segs (test code = Segs) 40.0 45.0-75.0 [facility] LakewayWpgieirMKLILKFWGZ9564-89-51 05:01:00 Test Item Value Reference Range Interpretation Comments Lymphocytes (test code = Lymphocytes) 49.7 20.0-40.0 [place] 714732-07-21 05:01:00 Test Item Value Reference Range Interpretation Comments Monocytes (test code = Monocytes) 8.5 2.0-12.0 [place] 714732-07-21 05:01:00 Test Item Value Reference Range Interpretation Comments Eosinophils (test code = 1.0 See_Comment [A utomated message] The Eosinophils) system which ge nerated this result tra nsmitted reference range : <=4.0. The reference r kat was not used to int erpret this result as normal/abnormal . [place] 714732-07-21 05:01:00 Test Item Value Reference Range Interpretation Comments Basophils (test code = 0.8 See_Comment [Aut omated message] The Basophils) system which ge nerated this result tra nsmitted reference range : <=1.0. The reference r kat was not used to int erpret this result as normal/abnormal . [facility] LakewayEelviugMQGAOGPXUV6333-97-67 05:01:00 Test Item Value Reference Range Interpretation Comments Neutrophils # (test code = Neutrophils 2.5 1.5-8.1 #) [facility] LakewayEgznjplERCFWNCCNH7461-49-79 05:01:00 Test Item Value Reference Range Interpretation Comments Lymphocytes # (test code = Lymphocytes 3.2 1.0-5.5 #) [facility] LakewaySvpmmplGTLBUORIXE7942-63-16 05:01:00 Test Item Value Reference Range Interpretation Comments Monocytes # (test code 0.5 See_Comment [Aut omated message] The = Monocytes #) system which generated this result tra nsmitted reference range : <=0.8. The reference r kat was not used to int erpret this result as normal/abnormal . [facility] LakewayIqxsgzuLAZILZHKYZ2326-15-11 05:01:00 Test Item Value Reference Range Interpretation Comments Eosinophils # (test code 0.1 See_Comment [A utomated message] The = Eosinophils #) system whic h generated this result tra nsmitted reference range : <=0.5. The reference r kat was not used to int erpret this result as normal/abnormal . [facility] CenterCARD[facility] [id number] 05:01:00 Test Item Value Reference Range Interpretation Comments HS Troponin I (test code = HS Troponin 5 I) [facility] [id number] 05:01:00 Test Item Value Reference Range Interpretation Comments Glucose Lvl (test code = Glucose Lvl) 96 70-99 [facility]2022-07-21 05:01:00 Test Item Value Reference Range Interpretation Comments BUN (test code = BUN) 16 7-22 [facility]2022-07-21 05:01:00 Test Item Value Reference Range Interpretation Comments Creatinine Lvl (test code = Creatinine 0.73 0.50-1.40 Lvl) [facility]2022-07-21 05:01:00 Test Item Value Reference Range Interpretation Comments Sodium Lvl (test code = Sodium Lvl) 141 135-145 [place] 172072-07-21 05:01:00 Test Item Value Reference Range Interpretation Comments Potassium Lvl (test code = Potassium 3.6 3.5-5.1 Lvl) [facility]2022-07-21 05:01:00 Test Item Value Reference Range Interpretation Comments Chloride Lvl (test code = Chloride Lvl) 110 95-109 [place] 172072-07-21 05:01:00 Test Item Value Reference Range Interpretation Comments CO2 (test code = CO2) 25 24-32 [place] 172072-07-21 05:01:00 Test Item Value Reference Range Interpretation Comments Calcium Lvl (test code = Calcium Lvl) 9.3 8.5-10.5 [place] 172072-07-21 05:01:00 Test Item Value Reference Range Interpretation Comments Total Protein (test code = Total 7.2 6.4-8.4 Protein) [place] 172072-07-21 05:01:00 Test Item Value Reference Range Interpretation Comments Albumin Lvl (test code = Albumin Lvl) 3.7 3.5-5.0 [facility]2022-07-21 05:01:00 Test Item Value Reference Range Interpretation Comments ALT (test code = ALT) 59 See_Comment [Auto mated message] The system which ge nerated this result transmit arvind reference range : <=65. The reference range was not used to interpr et this result as mario l/abnormal. [place] 172072-07-21 05:01:00 Test Item Value Reference Range Interpretation Comments AST (test code = AST) 24 See_Comment [Auto mated message] The system which ge nerated this result transmit arvind reference range : <=37. The reference range was not used to interpr et this result as mario l/abnormal. [place] 172072-07-21 05:01:00 Test Item Value Reference Range Interpretation Comments Alk Phos (test code = Alk Phos) 60 39-136 [place] 172072-07-21 05:01:00 Test Item Value Reference Range Interpretation Comments Bili Total (test code = Bili Total) 0.2 0.2-1.3 [place] 172072-07-21 05:01:00 Test Item Value Reference Range Interpretation Comments AGAP (test code = AGAP) 9.6 10.0-20.0 [facility]2022-07-21 05:01:00 Test Item Value Reference Range Interpretation Comments B/C Ratio (test code = B/C Ratio) 22 1 6-25 [facility]2022-07-21 05:01:00 Test Item Value Reference Range Interpretation Comments Globulin (test code = Globulin) 3.5 2.7-4.2 [facility]2022-07-21 05:01:00 Test Item Value Reference Range Interpretation Comments A/G Ratio (test code = A/G Ratio) 1.1 1 0.7-1.6 [facility]2022-07-21 05:01:00 Test Item Value Reference Range Interpretation Comments eGFR (test code = eGFR) 112 [facility] LakewayIhuapguEWCCQYGLXU4815-77-74 05:01:00 Test Item Value Reference Range Interpretation Comments WBC (test code = WBC) 6.4 3.7-10.4 [place] 714732-07-21 05:01:00 Test Item Value Reference Range Interpretation Comments RBC (test code = RBC) 5.28 4.20-5.40 [facility] LakewayYkgjebbEYCRZZJLXB3530-93-98 05:01:00 Test Item Value Reference Range Interpretation Comments Hgb (test code = Hgb) 14.1 12.0-16.0 [facility] LakewayPtkplhmMSHTRYRZRZ0988-16-52 05:01:00 Test Item Value Reference Range Interpretation Comments Hct (test code = Hct) 43.0 36.0-48.0 [facility] LakewayUzlxlhdNNTRPJDRZA8033-27-44 05:01:00 Test Item Value Reference Range Interpretation Comments MCV (test code = MCV) 81.4 80.0-98.0 [place] 714732-07-21 05:01:00 Test Item Value Reference Range Interpretation Comments MCH (test code = MCH) 26.7 pg 27.0-31.0 [facility] LakewayFzpqjanYEFJLJEDII4866-87-37 05:01:00 Test Item Value Reference Range Interpretation Comments MCHC (test code = MCHC) 32.9 32.0-36.0 [place] 714732-07-21 05:01:00 Test Item Value Reference Range Interpretation Comments RDW (test code = RDW) 14.1 11.5-14.5 [facility] LakewaySqjxltkVMTPSWLZNX4838-74-06 05:01:00 Test Item Value Reference Range Interpretation Comments Platelet (test code = Platelet) 237 133-450 [place] 714732-07-21 05:01:00 Test Item Value Reference Range Interpretation Comments MPV (test code = MPV) 9.1 7.4-10.4 [place] 714732-07-21 05:01:00 Test Item Value Reference Range Interpretation Comments PT (test code = PT) 12.4 s 12.0-14.7 [place] 714732-07-21 05:01:00 Test Item Value Reference Range Interpretation Comments INR (test code = INR) 0.93 1 0.85-1.17 [place] 714732-07-21 05:01:00 Test Item Value Reference Range Interpretation Comments PTT (test code = PTT) 26.5 s 22.9-35.8 [place] 714732-07-21 05:01:00 Test Item Value Reference Range Interpretation Comments Segs (test code = Segs) 40.0 45.0-75.0 [place] 714732-07-21 05:01:00 Test Item Value Reference Range Interpretation Comments Lymphocytes (test code = Lymphocytes) 49.7 20.0-40.0 [place] 714732-07-21 05:01:00 Test Item Value Reference Range Interpretation Comments Monocytes (test code = Monocytes) 8.5 2.0-12.0 [place] 714732-07-21 05:01:00 Test Item Value Reference Range Interpretation Comments Eosinophils (test code = 1.0 See_Comment [A utomated message] The Eosinophils) system which ge nerated this result tra nsmitted reference range : <=4.0. The reference r kat was not used to int erpret this result as normal/abnormal . [place] 714732-07-21 05:01:00 Test Item Value Reference Range Interpretation Comments Basophils (test code = 0.8 See_Comment [Aut omated message] The Basophils) system which ge nerated this result tra nsmitted reference range : <=1.0. The reference r kat was not used to int erpret this result as normal/abnormal . [facility] LakewayAkgayanOPTDCGIAKL6186-41-57 05:01:00 Test Item Value Reference Range Interpretation Comments Neutrophils # (test code = Neutrophils 2.5 1.5-8.1 #) [facility]cionmlVOQIFKQJCE1142-20-64 05:01:00 Test Item Value Reference Range Interpretation Comments Lymphocytes # (test code = Lymphocytes 3.2 1.0-5.5 #) [facility] LakewayRwarddtGUSBWTGQRQ6527-27-03 05:01:00 Test Item Value Reference Range Interpretation Comments Monocytes # (test code 0.5 See_Comment [Aut omated message] The = Monocytes #) system which generated this result tra nsmitted reference range : <=0.8. The reference r kat was not used to int erpret this result as normal/abnormal . [facility] LakewayEbektmmEHGGKNMOPK0042-44-22 05:01:00 Test Item Value Reference Range Interpretation Comments Eosinophils # (test code 0.1 See_Comment [A utomated message] The = Eosinophils #) system whic h generated this result tra nsmitted reference range : <=0.5. The reference r kat was not used to int erpret this result as normal/abnormal . [facility]CARD[facility] [id number] 05:01:00 Test Item Value Reference Range Interpretation Comments HS Troponin I (test code = HS Troponin 5 I) [facility]2022-07-21 05:01:00 Test Item Value Reference Range Interpretation Comments Glucose Lvl (test code = Glucose Lvl) 96 70-99 [facility]2022-07-21 05:01:00 Test Item Value Reference Range Interpretation Comments BUN (test code = BUN) 16 7-22 [facility]2022-07-21 05:01:00 Test Item Value Reference Range Interpretation Comments Creatinine Lvl (test code = Creatinine 0.73 0.50-1.40 Lvl) [facility]2022-07-21 05:01:00 Test Item Value Reference Range Interpretation Comments Sodium Lvl (test code = Sodium Lvl) 141 135-145 [facility]2022-07-21 05:01:00 Test Item Value Reference Range Interpretation Comments Potassium Lvl (test code = Potassium 3.6 3.5-5.1 Lvl) [facility]2022-07-21 05:01:00 Test Item Value Reference Range Interpretation Comments Chloride Lvl (test code = Chloride Lvl) 110 95-109 [facility] [id number] 05:01:00 Test Item Value Reference Range Interpretation Comments CO2 (test code = CO2) 25 24-32 [place] 172072-07-21 05:01:00 Test Item Value Reference Range Interpretation Comments Calcium Lvl (test code = Calcium Lvl) 9.3 8.5-10.5 [facility] [id number] 05:01:00 Test Item Value Reference Range Interpretation Comments Total Protein (test code = Total 7.2 6.4-8.4 Protein) [facility]2022-07-21 05:01:00 Test Item Value Reference Range Interpretation Comments Albumin Lvl (test code = Albumin Lvl) 3.7 3.5-5.0 [facility] [id number] 05:01:00 Test Item Value Reference Range Interpretation Comments ALT (test code = ALT) 59 See_Comment [Auto mated message] The system which ge nerated this result transmit arvind reference range : <=65. The reference range was not used to interpr et this result as mario l/abnormal. [facility] [id number] 05:01:00 Test Item Value Reference Range Interpretation Comments AST (test code = AST) 24 See_Comment [Auto mated message] The system which ge nerated this result transmit arvind reference range : <=37. The reference range was not used to interpr et this result as mario l/abnormal. [facility] [id number] 05:01:00 Test Item Value Reference Range Interpretation Comments Alk Phos (test code = Alk Phos) 60 39-136 [facility] [id number] 05:01:00 Test Item Value Reference Range Interpretation Comments Bili Total (test code = Bili Total) 0.2 0.2-1.3 [facility] [id number] 05:01:00 Test Item Value Reference Range Interpretation Comments AGAP (test code = AGAP) 9.6 10.0-20.0 [facility] [id number] 05:01:00 Test Item Value Reference Range Interpretation Comments B/C Ratio (test code = B/C Ratio) 22 1 6-25 [facility]2022-07-21 05:01:00 Test Item Value Reference Range Interpretation Comments Globulin (test code = Globulin) 3.5 2.7-4.2 [facility]2022-07-21 05:01:00 Test Item Value Reference Range Interpretation Comments A/G Ratio (test code = A/G Ratio) 1.1 1 0.7-1.6 [facility]2022-07-21 05:01:00 Test Item Value Reference Range Interpretation Comments eGFR (test code = eGFR) 112 [facility] LakewayBjkpceaXUZLPFGAOB3464-17-23 05:01:00 Test Item Value Reference Range Interpretation Comments WBC (test code = WBC) 6.4 3.7-10.4 [facility] LakewayUixwgbwPQRZONUCHQ3491-49-23 05:01:00 Test Item Value Reference Range Interpretation Comments RBC (test code = RBC) 5.28 4.20-5.40 [facility] LakewayLjiijkiWJAGHDOMII9409-31-70 05:01:00 Test Item Value Reference Range Interpretation Comments Hgb (test code = Hgb) 14.1 12.0-16.0 [facility] LakewayTedqsmtVYXLWSEDJV4379-51-13 05:01:00 Test Item Value Reference Range Interpretation Comments Hct (test code = Hct) 43.0 36.0-48.0 [facility] LakewayDffimokBECKVWFQIJ7892-40-07 05:01:00 Test Item Value Reference Range Interpretation Comments MCV (test code = MCV) 81.4 80.0-98.0 [facility] LakewayNsyjkwgDOTSWRCMWX6136-14-51 05:01:00 Test Item Value Reference Range Interpretation Comments MCH (test code = MCH) 26.7 pg 27.0-31.0 [facility] LakewayAnbhajnBMVBSTIESH8596-89-48 05:01:00 Test Item Value Reference Range Interpretation Comments MCHC (test code = MCHC) 32.9 32.0-36.0 [facility] LakewayAistzztXYRVMEIZYW0663-08-92 05:01:00 Test Item Value Reference Range Interpretation Comments RDW (test code = RDW) 14.1 11.5-14.5 [facility] LakewayToiisdeEBSYMJMQUG7478-39-57 05:01:00 Test Item Value Reference Range Interpretation Comments Platelet (test code = Platelet) 237 133-450 [facility] LakewayLcyzemkMVPGAVIYQU6410-53-18 05:01:00 Test Item Value Reference Range Interpretation Comments MPV (test code = MPV) 9.1 7.4-10.4 [facility] LakewayVijijcxWXSPEMRZPN1906-76-03 05:01:00 Test Item Value Reference Range Interpretation Comments PT (test code = PT) 12.4 s 12.0-14.7 [place] 714732-07-21 05:01:00 Test Item Value Reference Range Interpretation Comments INR (test code = INR) 0.93 1 0.85-1.17 [place] 714732-07-21 05:01:00 Test Item Value Reference Range Interpretation Comments PTT (test code = PTT) 26.5 s 22.9-35.8 [place] 714732-07-21 05:01:00 Test Item Value Reference Range Interpretation Comments Segs (test code = Segs) 40.0 45.0-75.0 [place] 714732-07-21 05:01:00 Test Item Value Reference Range Interpretation Comments Lymphocytes (test code = Lymphocytes) 49.7 20.0-40.0 [place] 714732-07-21 05:01:00 Test Item Value Reference Range Interpretation Comments Monocytes (test code = Monocytes) 8.5 2.0-12.0 [facility] LakewayPeencqgASZZKAGYXF4028-49-39 05:01:00 Test Item Value Reference Range Interpretation Comments Eosinophils (test code = 1.0 See_Comment [A utomated message] The Eosinophils) system which ge nerated this result tra nsmitted reference range : <=4.0. The reference r kat was not used to int erpret this result as normal/abnormal . [facility] LakewayCddziqeLEGXAOGSMP2719-24-98 05:01:00 Test Item Value Reference Range Interpretation Comments Basophils (test code = 0.8 See_Comment [Aut omated message] The Basophils) system which ge nerated this result tra nsmitted reference range : <=1.0. The reference r kat was not used to int erpret this result as normal/abnormal . [facility] LakewayJjeduqiFWRRBVXZMZ8368-49-95 05:01:00 Test Item Value Reference Range Interpretation Comments Neutrophils # (test code = Neutrophils 2.5 1.5-8.1 #) [facility] LakewayWihfsikVXVPRCJJYY8036-09-36 05:01:00 Test Item Value Reference Range Interpretation Comments Lymphocytes # (test code = Lymphocytes 3.2 1.0-5.5 #) [facility] HospitalCjbtkagHCDHLRRBHN4414-37-89 05:01:00 Test Item Value Reference Range Interpretation Comments Monocytes # (test code 0.5 See_Comment [Aut omated message] The = Monocytes #) system which generated this result tra nsmitted reference range : <=0.8. The reference r kat was not used to int erpret this result as normal/abnormal . [facility] HospitalAdeeyziAOKRHCBADU8563-12-66 05:01:00 Test Item Value Reference Range Interpretation Comments Eosinophils # (test code 0.1 See_Comment [A utomated message] The = Eosinophils #) system whic h generated this result tra nsmitted reference range : <=0.5. The reference r kat was not used to int erpret this result as normal/abnormal . [facility] [facility] [id number] 05:01:00 Test Item Value Reference Range Interpretation Comments HS Troponin I (test code = HS Troponin 5 I) [facility]2022-07-21 05:01:00 Test Item Value Reference Range Interpretation Comments Glucose Lvl (test code = Glucose Lvl) 96 70-99 [facility]2022-07-21 05:01:00 Test Item Value Reference Range Interpretation Comments BUN (test code = BUN) 16 7-22 [facility]2022-07-21 05:01:00 Test Item Value Reference Range Interpretation Comments Creatinine Lvl (test code = Creatinine 0.73 0.50-1.40 Lvl) [facility]2022-07-21 05:01:00 Test Item Value Reference Range Interpretation Comments Sodium Lvl (test code = Sodium Lvl) 141 135-145 [facility] [id number] 05:01:00 Test Item Value Reference Range Interpretation Comments Potassium Lvl (test code = Potassium 3.6 3.5-5.1 Lvl) [facility]2022-07-21 05:01:00 Test Item Value Reference Range Interpretation Comments Chloride Lvl (test code = Chloride Lvl) 110 95-109 [facility]2022-07-21 05:01:00 Test Item Value Reference Range Interpretation Comments CO2 (test code = CO2) 25 24-32 [facility] [id number] 05:01:00 Test Item Value Reference Range Interpretation Comments Calcium Lvl (test code = Calcium Lvl) 9.3 8.5-10.5 [place] 172072-07-21 05:01:00 Test Item Value Reference Range Interpretation Comments Total Protein (test code = Total 7.2 6.4-8.4 Protein) [place] 172072-07-21 05:01:00 Test Item Value Reference Range Interpretation Comments Albumin Lvl (test code = Albumin Lvl) 3.7 3.5-5.0 [place] 172072-07-21 05:01:00 Test Item Value Reference Range Interpretation Comments ALT (test code = ALT) 59 See_Comment [Auto mated message] The system which ge nerated this result transmit arvind reference range : <=65. The reference range was not used to interpr et this result as mario l/abnormal. [place] 172072-07-21 05:01:00 Test Item Value Reference Range Interpretation Comments AST (test code = AST) 24 See_Comment [Auto mated message] The system which ge nerated this result transmit arvind reference range : <=37. The reference range was not used to interpr et this result as mario l/abnormal. [facility]2022-07-21 05:01:00 Test Item Value Reference Range Interpretation Comments Alk Phos (test code = Alk Phos) 60 39-136 [place] 172072-07-21 05:01:00 Test Item Value Reference Range Interpretation Comments Bili Total (test code = Bili Total) 0.2 0.2-1.3 [place] 172072-07-21 05:01:00 Test Item Value Reference Range Interpretation Comments AGAP (test code = AGAP) 9.6 10.0-20.0 [place] 172072-07-21 05:01:00 Test Item Value Reference Range Interpretation Comments B/C Ratio (test code = B/C Ratio) 22 1 6-25 [place] 172072-07-21 05:01:00 Test Item Value Reference Range Interpretation Comments Globulin (test code = Globulin) 3.5 2.7-4.2 [place] 172072-07-21 05:01:00 Test Item Value Reference Range Interpretation Comments A/G Ratio (test code = A/G Ratio) 1.1 1 0.7-1.6 [facility]2022-07-21 05:01:00 Test Item Value Reference Range Interpretation Comments eGFR (test code = eGFR) 112 [facility]wayIksrvecZNUHJBWYFM5288-52-02 05:01:00 Test Item Value Reference Range Interpretation Comments WBC (test code = WBC) 6.4 3.7-10.4 [facility] LakewayFpefyfcEEQIITGTQJ6386-12-13 05:01:00 Test Item Value Reference Range Interpretation Comments RBC (test code = RBC) 5.28 4.20-5.40 [facility] LakewayRslzfhiZDSDSTQADL6402-39-84 05:01:00 Test Item Value Reference Range Interpretation Comments Hgb (test code = Hgb) 14.1 12.0-16.0 [facility] LakewayEariugyLKTVEQNCJD6996-26-13 05:01:00 Test Item Value Reference Range Interpretation Comments Hct (test code = Hct) 43.0 36.0-48.0 [facility] LakewayYlkuvfzSPJSOGDLRZ2314-70-71 05:01:00 Test Item Value Reference Range Interpretation Comments MCV (test code = MCV) 81.4 80.0-98.0 [facility] LakewayMwbfjbgXTSRVFKUVW3341-69-32 05:01:00 Test Item Value Reference Range Interpretation Comments MCH (test code = MCH) 26.7 pg 27.0-31.0 [facility] LakewayBhpyocgGFKZGFOMKB7413-67-83 05:01:00 Test Item Value Reference Range Interpretation Comments MCHC (test code = MCHC) 32.9 32.0-36.0 [facility] LakewayMrmfskrMUQMTPVXYK8211-72-37 05:01:00 Test Item Value Reference Range Interpretation Comments RDW (test code = RDW) 14.1 11.5-14.5 [facility] LakewayUhxnydkGQHBCQTWVE8955-57-16 05:01:00 Test Item Value Reference Range Interpretation Comments Platelet (test code = Platelet) 237 133-450 [facility] LakewayRohgzmjRVFLWCAFCD6940-49-83 05:01:00 Test Item Value Reference Range Interpretation Comments MPV (test code = MPV) 9.1 7.4-10.4 [facility] LakewayDdupeavRBJKWEDQMR8878-33-84 05:01:00 Test Item Value Reference Range Interpretation Comments PT (test code = PT) 12.4 s 12.0-14.7 [facility] LakewayMhmurzvDBQTONNQYD9695-04-27 05:01:00 Test Item Value Reference Range Interpretation Comments INR (test code = INR) 0.93 1 0.85-1.17 [place] 714732-07-21 05:01:00 Test Item Value Reference Range Interpretation Comments PTT (test code = PTT) 26.5 s 22.9-35.8 [place] 714732-07-21 05:01:00 Test Item Value Reference Range Interpretation Comments Segs (test code = Segs) 40.0 45.0-75.0 [facility] LakewayWmdpoqeWHLEWBRJEH3914-89-75 05:01:00 Test Item Value Reference Range Interpretation Comments Lymphocytes (test code = Lymphocytes) 49.7 20.0-40.0 [place] 714732-07-21 05:01:00 Test Item Value Reference Range Interpretation Comments Monocytes (test code = Monocytes) 8.5 2.0-12.0 [place] 714732-07-21 05:01:00 Test Item Value Reference Range Interpretation Comments Eosinophils (test code = 1.0 See_Comment [A utomated message] The Eosinophils) system which ge nerated this result tra nsmitted reference range : <=4.0. The reference r kat was not used to int erpret this result as normal/abnormal . [facility] LakewayJggnrooCMFORNGRNP6397-30-07 05:01:00 Test Item Value Reference Range Interpretation Comments Basophils (test code = 0.8 See_Comment [Aut omated message] The Basophils) system which ge nerated this result tra nsmitted reference range : <=1.0. The reference r kat was not used to int erpret this result as normal/abnormal . [facility] LakewayNgaaqpqVWMLVNXXKJ9087-36-36 05:01:00 Test Item Value Reference Range Interpretation Comments Neutrophils # (test code = Neutrophils 2.5 1.5-8.1 #) [place] 714732-07-21 05:01:00 Test Item Value Reference Range Interpretation Comments Lymphocytes # (test code = Lymphocytes 3.2 1.0-5.5 #) [place] 714732-07-21 05:01:00 Test Item Value Reference Range Interpretation Comments Monocytes # (test code 0.5 See_Comment [Aut omated message] The = Monocytes #) system which generated this result tra nsmitted reference range : <=0.8. The reference r kat was not used to int erpret this result as normal/abnormal . [facility] CenterIkrpapnWBDHUCIOSP4874-41-86 05:01:00 Test Item Value Reference Range Interpretation Comments Eosinophils # (test code 0.1 See_Comment [A utomated message] The = Eosinophils #) system [employer] h generated this result tra nsmitted reference range : <=0.5. The reference r kat was not used to int erpret this result as normal/abnormal . [facility] CenterCARD[facility]AC [id number] 05:01:00 Test Item Value Reference Range Interpretation Comments HS Troponin I (test code = HS Troponin 5 I) [facility] [id number] 05:01:00 Test Item Value Reference Range Interpretation Comments Glucose Lvl (test code = Glucose Lvl) 96 70-99 [facility]2022-07-21 05:01:00 Test Item Value Reference Range Interpretation Comments BUN (test code = BUN) 16 7-22 [facility]2022-07-21 05:01:00 Test Item Value Reference Range Interpretation Comments Creatinine Lvl (test code = Creatinine 0.73 0.50-1.40 Lvl) [facility]2022-07-21 05:01:00 Test Item Value Reference Range Interpretation Comments Sodium Lvl (test code = Sodium Lvl) 141 135-145 [facility]2022-07-21 05:01:00 Test Item Value Reference Range Interpretation Comments Potassium Lvl (test code = Potassium 3.6 3.5-5.1 Lvl) [facility]2022-07-21 05:01:00 Test Item Value Reference Range Interpretation Comments Chloride Lvl (test code = Chloride Lvl) 110 95-109 [facility]2022-07-21 05:01:00 Test Item Value Reference Range Interpretation Comments CO2 (test code = CO2) 25 24-32 [facility]2022-07-21 05:01:00 Test Item Value Reference Range Interpretation Comments Calcium Lvl (test code = Calcium Lvl) 9.3 8.5-10.5 [facility]2022-07-21 05:01:00 Test Item Value Reference Range Interpretation Comments Total Protein (test code = Total 7.2 6.4-8.4 Protein) [place] 172072-07-21 05:01:00 Test Item Value Reference Range Interpretation Comments Albumin Lvl (test code = Albumin Lvl) 3.7 3.5-5.0 [place] 172072-07-21 05:01:00 Test Item Value Reference Range Interpretation Comments ALT (test code = ALT) 59 See_Comment [Auto mated message] The system which ge nerated this result transmit arvind reference range : <=65. The reference range was not used to interpr et this result as mario l/abnormal. [place] 172072-07-21 05:01:00 Test Item Value Reference Range Interpretation Comments AST (test code = AST) 24 See_Comment [Auto mated message] The system which ge nerated this result transmit arvind reference range : <=37. The reference range was not used to interpr et this result as mario l/abnormal. [place] 172072-07-21 05:01:00 Test Item Value Reference Range Interpretation Comments Alk Phos (test code = Alk Phos) 60 39-136 [facility]2022-07-21 05:01:00 Test Item Value Reference Range Interpretation Comments Bili Total (test code = Bili Total) 0.2 0.2-1.3 [place] 172072-07-21 05:01:00 Test Item Value Reference Range Interpretation Comments AGAP (test code = AGAP) 9.6 10.0-20.0 [place] 172072-07-21 05:01:00 Test Item Value Reference Range Interpretation Comments B/C Ratio (test code = B/C Ratio) 22 1 6-25 [place] 172072-07-21 05:01:00 Test Item Value Reference Range Interpretation Comments Globulin (test code = Globulin) 3.5 2.7-4.2 [place] 172072-07-21 05:01:00 Test Item Value Reference Range Interpretation Comments A/G Ratio (test code = A/G Ratio) 1.1 1 0.7-1.6 [place] 172072-07-21 05:01:00 Test Item Value Reference Range Interpretation Comments eGFR (test code = eGFR) 112 [facility] LakewaySkwbqnfTTQFVDVDSE1129-15-65 05:01:00 Test Item Value Reference Range Interpretation Comments WBC (test code = WBC) 6.4 3.7-10.4 [facility] LakewayIcbfrgnAONYMIPKWI9566-70-91 05:01:00 Test Item Value Reference Range Interpretation Comments RBC (test code = RBC) 5.28 4.20-5.40 [facility] LakewaySssfsdlQYDTGXMCWB0776-38-01 05:01:00 Test Item Value Reference Range Interpretation Comments Hgb (test code = Hgb) 14.1 12.0-16.0 [facility] LakewayYmxtmhfXHYKILXGXX1245-90-75 05:01:00 Test Item Value Reference Range Interpretation Comments Hct (test code = Hct) 43.0 36.0-48.0 [facility] LakewayFiefcsqVAAZVCNLPR7876-39-64 05:01:00 Test Item Value Reference Range Interpretation Comments MCV (test code = MCV) 81.4 80.0-98.0 [facility] LakewayVcjejlcWACQPRKRUH0378-45-11 05:01:00 Test Item Value Reference Range Interpretation Comments MCH (test code = MCH) 26.7 pg 27.0-31.0 [facility] LakewayEefnogvKDYLKQDVCC4399-60-14 05:01:00 Test Item Value Reference Range Interpretation Comments MCHC (test code = MCHC) 32.9 32.0-36.0 [facility] LakewayTiinrxzBFKLLHRZSU2854-67-98 05:01:00 Test Item Value Reference Range Interpretation Comments RDW (test code = RDW) 14.1 11.5-14.5 [facility] LakewayTfrsavkLEVERIXTHX1424-53-16 05:01:00 Test Item Value Reference Range Interpretation Comments Platelet (test code = Platelet) 237 133-450 [facility] LakewayLfagtosDXEEXIIEUM0790-97-52 05:01:00 Test Item Value Reference Range Interpretation Comments MPV (test code = MPV) 9.1 7.4-10.4 [facility] LakewayQmnyzxvAHSQKPDNJQ1679-54-45 05:01:00 Test Item Value Reference Range Interpretation Comments PT (test code = PT) 12.4 s 12.0-14.7 [facility] LakewayHeuhxwtLXSGNIKRLN7817-33-24 05:01:00 Test Item Value Reference Range Interpretation Comments INR (test code = INR) 0.93 1 0.85-1.17 [facility] LakewayMjzlascOSPQFNMAVN3945-88-03 05:01:00 Test Item Value Reference Range Interpretation Comments PTT (test code = PTT) 26.5 s 22.9-35.8 [facility] LakewayZdmylqkLZCCJEDOFE3573-70-96 05:01:00 Test Item Value Reference Range Interpretation Comments Segs (test code = Segs) 40.0 45.0-75.0 [place] 714732-07-21 05:01:00 Test Item Value Reference Range Interpretation Comments Lymphocytes (test code = Lymphocytes) 49.7 20.0-40.0 [place] 714732-07-21 05:01:00 Test Item Value Reference Range Interpretation Comments Monocytes (test code = Monocytes) 8.5 2.0-12.0 [place] 714732-07-21 05:01:00 Test Item Value Reference Range Interpretation Comments Eosinophils (test code = 1.0 See_Comment [A utomated message] The Eosinophils) system which ge nerated this result tra nsmitted reference range : <=4.0. The reference r kat was not used to int erpret this result as normal/abnormal . [facility] LakewayHihrjnpOQMTBFWDCO1044-74-10 05:01:00 Test Item Value Reference Range Interpretation Comments Basophils (test code = 0.8 See_Comment [Aut omated message] The Basophils) system which ge nerated this result tra nsmitted reference range : <=1.0. The reference r kat was not used to int erpret this result as normal/abnormal . [facility] LakewayAigcywxWLCVLUSBAI8423-19-29 05:01:00 Test Item Value Reference Range Interpretation Comments Neutrophils # (test code = Neutrophils 2.5 1.5-8.1 #) [place] 714732-07-21 05:01:00 Test Item Value Reference Range Interpretation Comments Lymphocytes # (test code = Lymphocytes 3.2 1.0-5.5 #) [place] 714732-07-21 05:01:00 Test Item Value Reference Range Interpretation Comments Monocytes # (test code 0.5 See_Comment [Aut omated message] The = Monocytes #) system which generated this result tra nsmitted reference range : <=0.8. The reference r kat was not used to int erpret this result as normal/abnormal . [facility] LakewayCbttkgxRXPUTJZMPR2434-00-59 05:01:00 Test Item Value Reference Range Interpretation Comments Eosinophils # (test code 0.1 See_Comment [A utomated message] The = Eosinophils #) system whic h generated this result tra nsmitted reference range : <=0.5. The reference r kat was not used to int erpret this result as normal/abnormal . [facility] CenterC[facility] [id number] 05:01:00 Test Item Value Reference Range Interpretation Comments HS Troponin I (test code = HS Troponin 5 I) [facility] [id number] 05:01:00 Test Item Value Reference Range Interpretation Comments Glucose Lvl (test code = Glucose Lvl) 96 70-99 [facility] [id number] 05:01:00 Test Item Value Reference Range Interpretation Comments BUN (test code = BUN) 16 7-22 [facility] [id number] 05:01:00 Test Item Value Reference Range Interpretation Comments Creatinine Lvl (test code = Creatinine 0.73 0.50-1.40 Lvl) [facility] [id number] 05:01:00 Test Item Value Reference Range Interpretation Comments Sodium Lvl (test code = Sodium Lvl) 141 135-145 [facility] [id number] 05:01:00 Test Item Value Reference Range Interpretation Comments Potassium Lvl (test code = Potassium 3.6 3.5-5.1 Lvl) [facility] [id number] 05:01:00 Test Item Value Reference Range Interpretation Comments Chloride Lvl (test code = Chloride Lvl) 110 95-109 [facility] [id number] 05:01:00 Test Item Value Reference Range Interpretation Comments CO2 (test code = CO2) 25 24-32 [facility] [id number] 05:01:00 Test Item Value Reference Range Interpretation Comments Calcium Lvl (test code = Calcium Lvl) 9.3 8.5-10.5 [facility] [id number] 05:01:00 Test Item Value Reference Range Interpretation Comments Total Protein (test code = Total 7.2 6.4-8.4 Protein) [facility] [id number] 05:01:00 Test Item Value Reference Range Interpretation Comments Albumin Lvl (test code = Albumin Lvl) 3.7 3.5-5.0 [facility] [id number] 05:01:00 Test Item Value Reference Range Interpretation Comments ALT (test code = ALT) 59 See_Comment [Auto mated message] The system which ge nerated this result transmit arvind reference range : <=65. The reference range was not used to interpr et this result as mario l/abnormal. [facility] [id number] 05:01:00 Test Item Value Reference Range Interpretation Comments AST (test code = AST) 24 See_Comment [Auto mated message] The system which ge nerated this result transmit arvind reference range : <=37. The reference range was not used to interpr et this result as mario l/abnormal. [facility] [id number] 05:01:00 Test Item Value Reference Range Interpretation Comments Alk Phos (test code = Alk Phos) 60 39-136 [facility] [id number] 05:01:00 Test Item Value Reference Range Interpretation Comments Bili Total (test code = Bili Total) 0.2 0.2-1.3 [facility] [id number] 05:01:00 Test Item Value Reference Range Interpretation Comments AGAP (test code = AGAP) 9.6 10.0-20.0 [facility] [id number] 05:01:00 Test Item Value Reference Range Interpretation Comments B/C Ratio (test code = B/C Ratio) 22 1 6-25 [facility] [id number] 05:01:00 Test Item Value Reference Range Interpretation Comments Globulin (test code = Globulin) 3.5 2.7-4.2 [facility] [id number] 05:01:00 Test Item Value Reference Range Interpretation Comments A/G Ratio (test code = A/G Ratio) 1.1 1 0.7-1.6 [place] 172072-07-21 05:01:00 Test Item Value Reference Range Interpretation Comments eGFR (test code = eGFR) 112 [place] 714732-07-21 05:01:00 Test Item Value Reference Range Interpretation Comments WBC (test code = WBC) 6.4 3.7-10.4 [place] 714732-07-21 05:01:00 Test Item Value Reference Range Interpretation Comments RBC (test code = RBC) 5.28 4.20-5.40 [place] 714732-07-21 05:01:00 Test Item Value Reference Range Interpretation Comments Hgb (test code = Hgb) 14.1 12.0-16.0 [facility] LakewayKnoljzzFSUDBQWJWR2239-47-78 05:01:00 Test Item Value Reference Range Interpretation Comments Hct (test code = Hct) 43.0 36.0-48.0 [facility] LakewayYkwtogsXLFHNVFMJH5702-80-97 05:01:00 Test Item Value Reference Range Interpretation Comments MCV (test code = MCV) 81.4 80.0-98.0 [facility] LakewayUsrhpwyWKXLNOEHJS1762-43-56 05:01:00 Test Item Value Reference Range Interpretation Comments MCH (test code = MCH) 26.7 pg 27.0-31.0 [facility] LakewayIasiuvuZXZAWTXPYC1041-16-36 05:01:00 Test Item Value Reference Range Interpretation Comments MCHC (test code = MCHC) 32.9 32.0-36.0 [facility] LakewayEyahrirEKJXICMBQZ4541-67-01 05:01:00 Test Item Value Reference Range Interpretation Comments RDW (test code = RDW) 14.1 11.5-14.5 [facility] LakewayEviidksWTPIKYIYHS2975-91-26 05:01:00 Test Item Value Reference Range Interpretation Comments Platelet (test code = Platelet) 237 133-450 [facility] LakewayBnfpbkvDQTKACFYEU3669-10-45 05:01:00 Test Item Value Reference Range Interpretation Comments MPV (test code = MPV) 9.1 7.4-10.4 [facility] LakewayXepbsdvOTWMKZDOTR3131-41-12 05:01:00 Test Item Value Reference Range Interpretation Comments PT (test code = PT) 12.4 s 12.0-14.7 [facility] LakewayZrhafelLSOONCJOGM7373-48-34 05:01:00 Test Item Value Reference Range Interpretation Comments INR (test code = INR) 0.93 1 0.85-1.17 [facility] LakewayTqggvtrTOJVOITJGX4930-25-34 05:01:00 Test Item Value Reference Range Interpretation Comments PTT (test code = PTT) 26.5 s 22.9-35.8 [facility] LakewaySwsdxbdAUFYHRNWLV1413-78-85 05:01:00 Test Item Value Reference Range Interpretation Comments Segs (test code = Segs) 40.0 45.0-75.0 [facility] LakewayHofmmqqFKTJKOZMQP4359-14-80 05:01:00 Test Item Value Reference Range Interpretation Comments Lymphocytes (test code = Lymphocytes) 49.7 20.0-40.0 [facility]SsglyraPFCTJETJJE1692-72-95 05:01:00 Test Item Value Reference Range Interpretation Comments Monocytes (test code = Monocytes) 8.5 2.0-12.0 [facility] LakewayWpswppoUNNLTADNUF1556-62-58 05:01:00 Test Item Value Reference Range Interpretation Comments Eosinophils (test code = 1.0 See_Comment [A utomated message] The Eosinophils) system which ge nerated this result tra nsmitted reference range : <=4.0. The reference r kat was not used to int erpret this result as normal/abnormal . [facility] LakewayZrugpdgXUYFYMCVPJ6168-53-33 05:01:00 Test Item Value Reference Range Interpretation Comments Basophils (test code = 0.8 See_Comment [Aut omated message] The Basophils) system which ge nerated this result tra nsmitted reference range : <=1.0. The reference r kat was not used to int erpret this result as normal/abnormal . [facility] LakewayForhkccTRLBSRLWLC4459-03-59 05:01:00 Test Item Value Reference Range Interpretation Comments Neutrophils # (test code = Neutrophils 2.5 1.5-8.1 #) [facility] LakewayRgoulriVLVGLMBZBC2052-09-61 05:01:00 Test Item Value Reference Range Interpretation Comments Lymphocytes # (test code = Lymphocytes 3.2 1.0-5.5 #) [facility] LakewayGulajmlJAFSPDELYD0103-84-94 05:01:00 Test Item Value Reference Range Interpretation Comments Monocytes # (test code 0.5 See_Comment [Aut omated message] The = Monocytes #) system which generated this result tra nsmitted reference range : <=0.8. The reference r kat was not used to int erpret this result as normal/abnormal . [facility] LakewayIfbpikkGHTRWDTENO0759-56-02 05:01:00 Test Item Value Reference Range Interpretation Comments Eosinophils # (test code 0.1 See_Comment [A utomated message] The = Eosinophils #) system whic h generated this result tra nsmitted reference range : <=0.5. The reference r kat was not used to int erpret this result as normal/abnormal . [facility] CenterCARD[facility] [id number] 05:01:00 Test Item Value Reference Range Interpretation Comments HS Troponin I (test code = HS Troponin 5 I) [facility]2022-07-21 05:01:00 Test Item Value Reference Range Interpretation Comments Glucose Lvl (test code = Glucose Lvl) 96 70-99 [place] 172072-07-21 05:01:00 Test Item Value Reference Range Interpretation Comments BUN (test code = BUN) 16 7-22 [place] 172072-07-21 05:01:00 Test Item Value Reference Range Interpretation Comments Creatinine Lvl (test code = Creatinine 0.73 0.50-1.40 Lvl) [place] 172072-07-21 05:01:00 Test Item Value Reference Range Interpretation Comments Sodium Lvl (test code = Sodium Lvl) 141 135-145 [place] 172072-07-21 05:01:00 Test Item Value Reference Range Interpretation Comments Potassium Lvl (test code = Potassium 3.6 3.5-5.1 Lvl) [place] 172072-07-21 05:01:00 Test Item Value Reference Range Interpretation Comments Chloride Lvl (test code = Chloride Lvl) 110 95-109 [place] 172072-07-21 05:01:00 Test Item Value Reference Range Interpretation Comments CO2 (test code = CO2) 25 24-32 [place] 172072-07-21 05:01:00 Test Item Value Reference Range Interpretation Comments Calcium Lvl (test code = Calcium Lvl) 9.3 8.5-10.5 [facility]2022-07-21 05:01:00 Test Item Value Reference Range Interpretation Comments Total Protein (test code = Total 7.2 6.4-8.4 Protein) [facility]2022-07-21 05:01:00 Test Item Value Reference Range Interpretation Comments Albumin Lvl (test code = Albumin Lvl) 3.7 3.5-5.0 [place] 172072-07-21 05:01:00 Test Item Value Reference Range Interpretation Comments ALT (test code = ALT) 59 See_Comment [Auto mated message] The system which ge nerated this result transmit arvind reference range : <=65. The reference range was not used to interpr et this result as mario l/abnormal. [place] 172072-07-21 05:01:00 Test Item Value Reference Range Interpretation Comments AST (test code = AST) 24 See_Comment [Auto mated message] The system which ge nerated this result transmit arvind reference range : <=37. The reference range was not used to interpr et this result as mario l/abnormal. [facility]2022-07-21 05:01:00 Test Item Value Reference Range Interpretation Comments Alk Phos (test code = Alk Phos) 60 39-136 [facility] KOVRM2603-90-08 05:01:00 Test Item Value Reference Range Interpretation Comments Bili Total (test code = Bili Total) 0.2 0.2-1.3 [facility]2022-07-21 05:01:00 Test Item Value Reference Range Interpretation Comments AGAP (test code = AGAP) 9.6 10.0-20.0 [facility]2022-07-21 05:01:00 Test Item Value Reference Range Interpretation Comments B/C Ratio (test code = B/C Ratio) 22 1 6-25 [facility]2022-07-21 05:01:00 Test Item Value Reference Range Interpretation Comments Globulin (test code = Globulin) 3.5 2.7-4.2 [facility]2022-07-21 05:01:00 Test Item Value Reference Range Interpretation Comments A/G Ratio (test code = A/G Ratio) 1.1 1 0.7-1.6 [facility]2022-07-21 05:01:00 Test Item Value Reference Range Interpretation Comments eGFR (test code = eGFR) 112 [facility] 05:01:00 Test Item Value Reference Range Interpretation Comments WBC (test code = WBC) 6.4 3.7-10.4 [facility] [id number] 05:01:00 Test Item Value Reference Range Interpretation Comments HS Troponin I (test code = HS Troponin 5 I) [facility]2022-07-21 05:01:00 Test Item Value Reference Range Interpretation Comments Glucose Lvl (test code = Glucose Lvl) 96 70-99 [facility] [id number] 05:01:00 Test Item Value Reference Range Interpretation Comments BUN (test code = BUN) 16 7-22 [facility]wayHfznbhgMFJVZBOEPO0055-05-03 05:01:00 Test Item Value Reference Range Interpretation Comments RBC (test code = RBC) 5.28 4.20-5.40 [place] 172072-07-21 05:01:00 Test Item Value Reference Range Interpretation Comments Creatinine Lvl (test code = Creatinine 0.73 0.50-1.40 Lvl) [place] 172072-07-21 05:01:00 Test Item Value Reference Range Interpretation Comments Sodium Lvl (test code = Sodium Lvl) 141 135-145 [place] 172072-07-21 05:01:00 Test Item Value Reference Range Interpretation Comments Potassium Lvl (test code = Potassium 3.6 3.5-5.1 Lvl) [place] 172072-07-21 05:01:00 Test Item Value Reference Range Interpretation Comments Chloride Lvl (test code = Chloride Lvl) 110 95-109 [place] 172072-07-21 05:01:00 Test Item Value Reference Range Interpretation Comments CO2 (test code = CO2) 25 24-32 [place] 172072-07-21 05:01:00 Test Item Value Reference Range Interpretation Comments Calcium Lvl (test code = Calcium Lvl) 9.3 8.5-10.5 [place] 172072-07-21 05:01:00 Test Item Value Reference Range Interpretation Comments Total Protein (test code = Total 7.2 6.4-8.4 Protein) [place] 172072-07-21 05:01:00 Test Item Value Reference Range Interpretation Comments Albumin Lvl (test code = Albumin Lvl) 3.7 3.5-5.0 [place] 172072-07-21 05:01:00 Test Item Value Reference Range Interpretation Comments ALT (test code = ALT) 59 See_Comment [Auto mated message] The system which ge nerated this result transmit arvind reference range : <=65. The reference range was not used to interpr et this result as mario l/abnormal. [place] 172072-07-21 05:01:00 Test Item Value Reference Range Interpretation Comments AST (test code = AST) 24 See_Comment [Auto mated message] The system which ge nerated this result transmit arvind reference range : <=37. The reference range was not used to interpr et this result as mario l/abnormal. [facility] LakewayUpzjdmfEMVEVZSMJY4823-05-18 05:01:00 Test Item Value Reference Range Interpretation Comments Hgb (test code = Hgb) 14.1 12.0-16.0 [facility]2022-07-21 05:01:00 Test Item Value Reference Range Interpretation Comments Alk Phos (test code = Alk Phos) 60 39-136 [facility]2022-07-21 05:01:00 Test Item Value Reference Range Interpretation Comments Bili Total (test code = Bili Total) 0.2 0.2-1.3 [facility]2022-07-21 05:01:00 Test Item Value Reference Range Interpretation Comments AGAP (test code = AGAP) 9.6 10.0-20.0 [facility]2022-07-21 05:01:00 Test Item Value Reference Range Interpretation Comments B/C Ratio (test code = B/C Ratio) 22 1 6-25 [facility]2022-07-21 05:01:00 Test Item Value Reference Range Interpretation Comments Globulin (test code = Globulin) 3.5 2.7-4.2 [facility]2022-07-21 05:01:00 Test Item Value Reference Range Interpretation Comments A/G Ratio (test code = A/G Ratio) 1.1 1 0.7-1.6 [facility]2022-07-21 05:01:00 Test Item Value Reference Range Interpretation Comments eGFR (test code = eGFR) 112 [facility] LakewayVzxnuonUYRHGURVIH2620-08-60 05:01:00 Test Item Value Reference Range Interpretation Comments WBC (test code = WBC) 6.4 3.7-10.4 [facility]JzqtesgXHXAXGCJEI7186-56-77 02:18:00 Test Item Value Reference Range Interpretation Comments Coronavirus (COVID-19) Detected MARLYN (test code = 1*ABN*(03/13/22 9:18 Coronavirus (COVID-19) PM) MARLYN) [place] 931422-07-16 02:18:00 Test Item Value Reference Range Interpretation Comments Coronavirus (COVID-19) Detected MARLYN (test code = 1*ABN*(03/13/22 9:18 Coronavirus (COVID-19) PM) MARLYN) [address]07-16 02:18:00 Test Item Value Reference Range Interpretation Comments Coronavirus (COVID-19) Detected MARLYN (test code = 1*ABN*(03/13/22 9:18 Coronavirus (COVID-19) PM) MARLYN) [facility] CenterGnydcuwHLGFCHDWKF9301-68-69 02:18:00 Test Item Value Reference Range Interpretation Comments Coronavirus (COVID-19) Detected MARLYN (test code = 1*ABN*(03/13/22 9:18 Coronavirus (COVID-19) PM) MARLYN) [facility] CenterKdyciogWAUORTAMRE5763-17-82 02:18:00 Test Item Value Reference Range Interpretation Comments Coronavirus (COVID-19) Detected MARLYN (test code = 1*ABN*(03/13/22 9:18 Coronavirus (COVID-19) PM) MARLYN) [facility] CenterIyytpluNPLVUHZWWC7518-28-46 02:18:00 Test Item Value Reference Range Interpretation Comments Coronavirus (COVID-19) Detected MARLYN (test code = 1*ABN*(03/13/22 9:18 Coronavirus (COVID-19) PM) MARLYN) [facility] CenterKyxilyhAQOCMILEKA5458-14-54 02:18:00 Test Item Value Reference Range Interpretation Comments Coronavirus (COVID-19) Detected MRALYN (test code = 1*ABN*(03/13/22 9:18 Coronavirus (COVID-19) PM) MARLYN) [facility] CenterFtnponaPJUKSCRICG1889-85-62 02:18:00 Test Item Value Reference Range Interpretation Comments Coronavirus (COVID-19) Detected MARLYN (test code = 1*ABN*(03/13/22 9:18 Coronavirus (COVID-19) PM) MARLYN) [facility] MARLYN+hotsl9636-04-96 03:21:53 Test Item Value Reference Range Interpretation Comments Symptomatic as defined by CDC? (test code = 40744-5) Employed in No Healthcare? (test code = 46356-5) Resident in a No congregate care setting (including nursing homes, residential care for people with intellectual and developmental disabilities, psychiatric treatment facilities, group homes, board and care homes, homeless halfway, foster care or other): (test code = 51716-4) ? (test code = No 35602-4) SARS-CoV-2 RNA Nph Ql NOT DETECTED Not Detected The novel MRALYN+probe (test code = coron ashley 99037-5) (SARS-CoV-2) ta rget nucleic acids a re not detected. COMMENT: The [employer] SARS-CoV-2 real-time RT-PCR based diagnostic test intended for the qualitative detection of SARS-CoV-2 viral RNA in a nasopharyngeal swab during acute phase of infection. This test was developed and its performance characteristics have been determined by the [facility]. This test has not been cleared or approved by the FDA. This testsystem has been authorized by the FDA under an Emergency Use Authorization (EUA). This test has beenvalidated in accordance with the FDA\\JM88805\\s Guidance document \\OJ7791S\\Policy for Coronavirus Disease-2019 Tests During the Public Health Emergency\\IX5927K\\ (Revised December 2019) and is used for clinical purposes. It should not be regarded as investigational or for research\\UC1884O\\Detected\\[id number]\\ results are indicative of the presence of the identified virus, but do not rule out bacterial infection or co-infection with other pathogens not detected by the test. Clinical correlation with patient his tory and other diagnostic information is necessary to determine patient infection status. \\AB5643C\\Not Detected\\OU4130O\\ results do not preclude SARS-CoV-2 and should not be used as the sole basis for treatment or other patient management decisions. Negative results must be combined with clinical observations, patient history, and/or epidemiological information.This laboratory is certified under the Clinical Laboratory Improvement Amendments (CLIA) as qualified to perform high complexity clinical laboratory testing.[facility] SARS-CoV-2 ORF1ab Resp Ql MARLYN+tzdqp4601-72-87 01:19:53 Test Item Value Reference Range Interpretation Comments Symptomatic as defined No by CDC? (test code = 09841-6) Hospitalized? (test No code = 00989-4) ICU? ([place] = [place] 82734-9) Employed in No Healthcare? (test code = 70526-2) Resident in a No congregate care setting (including nursing homes, residential care for people with intellectual and developmental disabilities, psychiatric treatment facilities, group homes, board and care homes, homeless halfway, foster care or other): (test code = 08918-6) ? (test code = No 40957-2) SARS-CoV-2 ORF1ab Resp NOT DETECTED Not Detected INTER PRETATION: No Ql MARLYN+probe (test detectabl e levels code = 89854-3) of SARS-CoV- 2 Coronavirus (COVID-19) were present [...] n with SARS-CoV-2 Coronavirus (COVID-19). COMMENT: This [employer] SARS-CoV-2 molecular diagnostic assay utilizes [employer] Mediated Amplification (TMA) technology to rapidly detect the SARS-CoV-2 (COVID-19) virus from respiratory samples. In accordance with the FDA's guidance document "Policy for Diagnostic Tests for Coronavirus Disease- 2019 during the Public Health Emergency", this test was developed, and its performance characteristics were verified by the [facility] molecular diagnostics laboratory and is authorized for [...] actual/normal in Platelet poor plasma by Coagulation vgezs2013-55-64 00:00:00 Test Item Value Reference Range Interpretation Comments fact. VIII act. (test code = fact. VIII 106 act.) [facility] Willebrand factor (vWf).activity [Units/volume] in Platelet poor plasma by Whtfehaoxnh8639-75-96 00:00:00 Test Item Value Reference Range Interpretation Comments ristocetin cofactor (test code = 57 ristocetin cofactor) [facility] MedicalaPTT in Platelet poor plasma by Coagulation mionl8850-89-20 00:00:00 Test Item Value Reference Range Interpretation Comments PTT (test code = PTT) 28.5 sec 23.6-31.6 [facility] MedicalAndrostenedione [Mass/volume] in Serum or Emdbjd1269-02-32 00:00:00 Test Item Value Reference Range Interpretation Comments androstenedione (1) (test code = 20 NG/dL androstenedione (1)) [facility] MedicalPT/KKH3508-56-22 00:00:00 Test Item Value Reference Range Interpretation Comments INR (test code = INR) 0.96 0.80-1.06 PT (test code = PT) 10.9 sec 9.1-11.9 [facility] Bjlutns28-Aoquqxniadyqkhowatp [Mass/volume] in Serum or Udvkwz9791-99-78 00:00:00 Test Item Value Reference Range Interpretation Comments 17-hydroxyprogesterone (test code = <10 see below 17-hydroxyprogesterone) [facility] MedicalaPTT in Blood by Coagulation zmari5300-83-52 00:00:00 Test Item Value Reference Range Interpretation Comments P.T.T. (test code = P.T.T.) 30.9 [facility] MedicalChlamydia trachomatis and Neisseria gonorrhoeae rRNA panel - Specimen by MARLYN with probe mhjzbpqfs3342-60-82 00:00:00 Test Item Value Reference Range Interpretation Comments aptima combo 2 swab (CT) (test code = CT neg negative aptima combo 2 swab (CT)) aptima combo 2 swab (GC) (test code = GC neg negative aptima combo 2 swab (GC)) [facility] Medicalaptima swab vaginitis 2021-11-26 00:00:00 Test Item Value Reference Range Interpretation Comments bacterial vaginosis (test code = bv neg negative bacterial vaginosis) warner species (test code = C. spp neg negative warner species) warner glabrata (test code = C. gla neg negative warner glabrata) trichomonas vaginalis (CV/TV) trich pos negative A (test code = trichomonas vaginalis (CV/TV)) [facility] MedicalCBC panel - Blood by Automated bilvc3722-30-18 00:00:00 Test Item Value Reference Range Interpretation [...] code = baso #) 0.0 10 0.0-0.2 [facility] MedicalThyrotropin [Units/volume] in Serum or Ksgyvm4042-84-82 00:00:00 Test Item Value Reference Range Interpretation Comments TSH (test code = TSH) 2.010 uIU/mL 0.178-4.530 [facility] MedicalCom[facility] metabolic 2000 panel - Serum or Legyob2571-28-89 00:00:00 Test Item Value Reference Range Interpretation [...] 124.483 >60.000 (test code = eGFR mL/min/1.73A? italian) [facility] MedicalTestosterone [Mass/volume] in Serum or Tvxbeq8312-48-22 00:00:00 Test Item Value Reference Range Interpretation Comments testosterone (test code = testosterone) < 2.5 8.4-48.1 L [facility] MedicalDehydroepiandrosterone sulfate (DHEA-S) [Mass/volume] in Serum or Mjyaio5873-86-00 00:00:00 Test Item Value Reference Range Interpretation Comments DHEA-S (test code = DHEA-S) 43.1 ug/dL 98.8-340.0 L [facility] MedicalFollitropin and Lutropin panel [Units/volume] - Serum or Plasma 2021-11-26 00:00:00 Test Item Value Reference Range Interpretation Comments LH (test code = LH) 2.9 mIU/mL FSH (test code = FSH) 6.8 mIU/mL [facility] DockPHPProlactin [Mass/volume] in Serum or Tqouot0709-14-43 00:00:00 Test Item Value Reference Range Interpretation Comments prolactin (test code = prolactin) 115.0 NG/mL 4.8-23.3 H [facility] TradingLipid 1996 panel - Serum or Pxtimb1368-23-42 00:00:00 Test Item Value Reference Range Interpretation [...] Serum or Plasma (test code = 2089-1) [facility] TradingSTI cttxf1955-79-98 00:00:00 Test Item Value Reference Range Interpretation Comments HPV thinprep (test code = HPV negative negative thinprep) [facility] Tradingpap, [id number] 00:00:00 Test Item Value Reference Range Interpretation Comments LMP date: (test code = 09/09/2021 LMP date:) Pap, liquid-based nilm nilm (test code = Pap, liquid-based) source (liquid-based cervical (which cytology): (test code includes endocervical) = source (liquid-based cytology):) [facility]Want[facility] [id number] 21:13:00 Test Item Value Reference Range Interpretation Comments Glucose Lvl (test code = Glucose Lvl) 89 70-99 [facility] [place] [id number] 21:13:00 Test Item Value Reference Range Interpretation Comments BUN (test code = BUN) 8 7-22 [facility] [place] RVLGU1677-33-07 21:13:00 Test Item Value Reference Range Interpretation Comments Creatinine Lvl (test code = Creatinine 0.55 0.50-1.40 Lvl) [facility] [place] [id number] 21:13:00 Test Item Value Reference Range Interpretation Comments Sodium Lvl (test code = Sodium Lvl) 140 135-145 [facility] [place] SOSBM1832-11-05 21:13:00 Test Item Value Reference Range Interpretation Comments Potassium Lvl (test code = Potassium 3.5 3.5-5.1 Lvl) [facility]2021-05-24 21:13:00 Test Item Value Reference Range Interpretation Comments Chloride Lvl (test code = Chloride Lvl) 109 95-109 [facility]2021-05-24 21:13:00 Test Item Value Reference Range Interpretation Comments CO2 (test code = CO2) 27 24-32 [place] 172071-05-24 21:13:00 Test Item Value Reference Range Interpretation Comments Calcium Lvl (test code = Calcium Lvl) 9.0 8.5-10.5 [place] 172071-05-24 21:13:00 Test Item Value Reference Range Interpretation Comments AGAP (test code = AGAP) 7.5 10.0-20.0 [facility]2021-05-24 21:13:00 Test Item Value Reference Range Interpretation Comments eGFR (test code = eGFR) 126 [facility]2021-05-24 21:13:00 Test Item Value Reference Range Interpretation Comments Lactic Acid Lvl (test code = Lactic 0.6 0.5-2.2 Acid Lvl) [place] 85820021-05-24 21:13:00 Test Item Value Reference Range Interpretation Comments hCG Tot (test code = hCG Tot) no gt [facility]wayBhivaywTGGQAIDMYI5645-56-59 21:13:00 Test Item Value Reference Range Interpretation Comments WBC X 10x3 (test code = WBC X 10x3) 7.9 3.7-10.4 [facility] LakewayEjcsmjbBAFOJMYXGR0432-91-54 21:13:00 Test Item Value Reference Range Interpretation Comments RBC X 10x6 (test code = RBC X 10x6) 4.80 4.20-5.40 [facility] LakewayDfgctvkIBFKTUQUEW7269-92-11 21:13:00 Test Item Value Reference Range Interpretation Comments Hgb (test code = Hgb) 12.4 12.0-16.0 [place] 714731-05-24 21:13:00 Test Item Value Reference Range Interpretation Comments Hct (test code = Hct) 37.9 36.0-48.0 [facility] LakewayQigxxbiBWNPBRZQLX0867-09-26 21:13:00 Test Item Value Reference Range Interpretation Comments MCV (test code = MCV) 78.9 80.0-98.0 [place] 714731-05-24 21:13:00 Test Item Value Reference Range Interpretation Comments MCH (test code = MCH) 25.7 pg 27.0-31.0 [place] 714731-05-24 21:13:00 Test Item Value Reference Range Interpretation Comments MCHC (test code = MCHC) 32.6 32.0-36.0 [place] 714731-05-24 21:13:00 Test Item Value Reference Range Interpretation Comments RDW (test code = RDW) 15.5 11.5-14.5 [place] 714731-05-24 21:13:00 Test Item Value Reference Range Interpretation Comments Platelet (test code = Platelet) 243 133-450 [place] 714731-05-24 21:13:00 Test Item Value Reference Range Interpretation Comments MPV (test code = MPV) 9.4 7.4-10.4 [place] 714731-05-24 21:13:00 Test Item Value Reference Range Interpretation Comments Segs (test code = Segs) 56.1 45.0-75.0 [place] 714731-05-24 21:13:00 Test Item Value Reference Range Interpretation Comments Lymphocytes (test code = Lymphocytes) 32.2 20.0-40.0 [place] 714731-05-24 21:13:00 Test Item Value Reference Range Interpretation Comments Monocytes (test code = Monocytes) 9.1 2.0-12.0 [place] 714731-05-24 21:13:00 Test Item Value Reference Range Interpretation Comments Eosinophils (test code = 2.2 See_Comment [A utomated message] The Eosinophils) system which ge nerated this result tra nsmitted reference range : <=4.0. The reference r kat was not used to int erpret this result as normal/abnormal . [place] 714731-05-24 21:13:00 Test Item Value Reference Range Interpretation Comments Basophils (test code = 0.4 See_Comment [Aut omated message] The Basophils) system which ge nerated this result tra nsmitted reference range : <=1.0. The reference r kat was not used to int erpret this result as normal/abnormal . [place] 714731-05-24 21:13:00 Test Item Value Reference Range Interpretation Comments Neutrophils # (test code = Neutrophils 4.4 1.5-8.1 #) [place] 714731-05-24 21:13:00 Test Item Value Reference Range Interpretation Comments Lymphocytes # (test code = Lymphocytes 2.5 1.0-5.5 #) [place] 714731-05-24 21:13:00 Test Item Value Reference Range Interpretation Comments Monocytes # (test code 0.7 See_Comment [Aut omated message] The = Monocytes #) system which generated this result tra nsmitted reference range : <=0.8. The reference r kat was not used to int erpret this result as normal/abnormal . [place] 714731-05-24 21:13:00 Test Item Value Reference Range Interpretation Comments Eosinophils # (test code 0.2 See_Comment [A utomated message] The = Eosinophils #) system whic h generated this result tra nsmitted reference range : <=0.5. The reference r kat was not used to int erpret this result as normal/abnormal . [place] 714731-05-24 21:13:00 Test Item Value Reference Range Interpretation Comments Microcyte (test code = 1+ *ABN*(01/20/21 Microcyte) 4:13 PM) [place] [address]-05-24 21:13:00 Test Item Value Reference Range Interpretation Comments Glucose Lvl (test code = Glucose Lvl) 89 70-99 [place] 172071-05-24 21:13:00 Test Item Value Reference Range Interpretation Comments BUN (test code = BUN) 8 7-22 [place] 172071-05-24 21:13:00 Test Item Value Reference Range Interpretation Comments Creatinine Lvl (test code = Creatinine 0.55 0.50-1.40 Lvl) [place] [address]-05-24 21:13:00 Test Item Value Reference Range Interpretation Comments Sodium Lvl (test code = Sodium Lvl) 140 135-145 [place] 172071-05-24 21:13:00 Test Item Value Reference Range Interpretation Comments Potassium Lvl (test code = Potassium 3.5 3.5-5.1 Lvl) [place] 172071-05-24 21:13:00 Test Item Value Reference Range Interpretation Comments Chloride Lvl (test code = Chloride Lvl) 109 95-109 [facility]2021-05-24 21:13:00 Test Item Value Reference Range Interpretation Comments CO2 (test code = CO2) 27 24-32 [place] 172071-05-24 21:13:00 Test Item Value Reference Range Interpretation Comments Calcium Lvl (test code = Calcium Lvl) 9.0 8.5-10.5 [place] 172071-05-24 21:13:00 Test Item Value Reference Range Interpretation Comments AGAP (test code = AGAP) 7.5 10.0-20.0 [place] 172071-05-24 21:13:00 Test Item Value Reference Range Interpretation Comments eGFR (test code = eGFR) 126 [facility]2021-05-24 21:13:00 Test Item Value Reference Range Interpretation Comments Lactic Acid Lvl (test code = Lactic 0.6 0.5-2.2 Acid Lvl) [place] 85820021-05-24 21:13:00 Test Item Value Reference Range Interpretation Comments hCG Tot (test code = hCG Tot) no gt [facility] [facility]mmncluZFTMBCGCSF9269-96-35 21:13:00 Test Item Value Reference Range Interpretation Comments WBC X 10x3 (test code = WBC X 10x3) 7.9 3.7-10.4 [place] 714731-05-24 21:13:00 Test Item Value Reference Range Interpretation Comments RBC X 10x6 (test code = RBC X 10x6) 4.80 4.20-5.40 [place] 714731-05-24 21:13:00 Test Item Value Reference Range Interpretation Comments Hgb (test code = Hgb) 12.4 12.0-16.0 [place] [address]-05-24 21:13:00 Test Item Value Reference Range Interpretation Comments Hct (test code = Hct) 37.9 36.0-48.0 [place] [address]-05-24 21:13:00 Test Item Value Reference Range Interpretation Comments MCV (test code = MCV) 78.9 80.0-98.0 [place] [address]-05-24 21:13:00 Test Item Value Reference Range Interpretation Comments MCH (test code = MCH) 25.7 pg 27.0-31.0 [facility]wayAkemanmDUIRBFQEQN6143-40-34 21:13:00 Test Item Value Reference Range Interpretation Comments MCHC (test code = MCHC) 32.6 32.0-36.0 [place] 714731-05-24 21:13:00 Test Item Value Reference Range Interpretation Comments RDW (test code = RDW) 15.5 11.5-14.5 [place] 714731-05-24 21:13:00 Test Item Value Reference Range Interpretation Comments Platelet (test code = Platelet) 243 133-450 [place] 714731-05-24 21:13:00 Test Item Value Reference Range Interpretation Comments MPV (test code = MPV) 9.4 7.4-10.4 [place] [address]-05-24 21:13:00 Test Item Value Reference Range Interpretation Comments Segs (test code = Segs) 56.1 45.0-75.0 [place] 714731-05-24 21:13:00 Test Item Value Reference Range Interpretation Comments Lymphocytes (test code = Lymphocytes) 32.2 20.0-40.0 [place] 714731-05-24 21:13:00 Test Item Value Reference Range Interpretation Comments Monocytes (test code = Monocytes) 9.1 2.0-12.0 [place] 714731-05-24 21:13:00 Test Item Value Reference Range Interpretation Comments Eosinophils (test code = 2.2 See_Comment [A utomated message] The Eosinophils) system which ge nerated this result tra nsmitted reference range : <=4.0. The reference r kat was not used to int erpret this result as normal/abnormal . [place]14731-05-24 21:13:00 Test Item Value Reference Range Interpretation Comments Basophils (test code = 0.4 See_Comment [Aut omated message] The Basophils) system which ge nerated this result tra nsmitted reference range : <=1.0. The reference r kat was not used to int erpret this result as normal/abnormal . [place] 714731-05-24 21:13:00 Test Item Value Reference Range Interpretation Comments Neutrophils # (test code = Neutrophils 4.4 1.5-8.1 #) [place] 714731-05-24 21:13:00 Test Item Value Reference Range Interpretation Comments Lymphocytes # (test code = Lymphocytes 2.5 1.0-5.5 #) [place] 714731-05-24 21:13:00 Test Item Value Reference Range Interpretation Comments Monocytes # (test code 0.7 See_Comment [Aut omated message] The = Monocytes #) system which generated this result tra nsmitted reference range : <=0.8. The reference r kat was not used to int erpret this result as normal/abnormal . [place] 714731-05-24 21:13:00 Test Item Value Reference Range Interpretation Comments Eosinophils # (test code 0.2 See_Comment [A utomated message] The = Eosinophils #) system whic h generated this result tra nsmitted reference range : <=0.5. The reference r kat was not used to int erpret this result as normal/abnormal . [place] 714731-05-24 21:13:00 Test Item Value Reference Range Interpretation Comments Microcyte (test code = 1+ *ABN*(01/20/21 Microcyte) 4:13 PM) [place] 172071-05-24 21:13:00 Test Item Value Reference Range Interpretation Comments Glucose Lvl (test code = Glucose Lvl) 89 70-99 [place] 172071-05-24 21:13:00 Test Item Value Reference Range Interpretation Comments BUN (test code = BUN) 8 7-22 [place] [address]-05-24 21:13:00 Test Item Value Reference Range Interpretation Comments Creatinine Lvl (test code = Creatinine 0.55 0.50-1.40 Lvl) [place] 172071-05-24 21:13:00 Test Item Value Reference Range Interpretation Comments Sodium Lvl (test code = Sodium Lvl) 140 135-145 [place] 172071-05-24 21:13:00 Test Item Value Reference Range Interpretation Comments Potassium Lvl (test code = Potassium 3.5 3.5-5.1 Lvl) [place] 172071-05-24 21:13:00 Test Item Value Reference Range Interpretation Comments Chloride Lvl (test code = Chloride Lvl) 109 95-109 [place] 172071-05-24 21:13:00 Test Item Value Reference Range Interpretation Comments CO2 (test code = CO2) 27 24-32 [place] 172071-05-24 21:13:00 Test Item Value Reference Range Interpretation Comments Calcium Lvl (test code = Calcium Lvl) 9.0 8.5-10.5 [place] 172071-05-24 21:13:00 Test Item Value Reference Range Interpretation Comments AGAP (test code = AGAP) 7.5 10.0-20.0 [place] 172071-05-24 21:13:00 Test Item Value Reference Range Interpretation Comments eGFR (test code = eGFR) 126 [facility]2021-05-24 21:13:00 Test Item Value Reference Range Interpretation Comments Lactic Acid Lvl (test code = Lactic 0.6 0.5-2.2 Acid Lvl) [place] 767471-05-24 21:13:00 Test Item Value Reference Range Interpretation Comments hCG Tot (test code = hCG Tot) no gt [facility]wayLmpvbyuLARDNXSAHZ0856-21-13 21:13:00 Test Item Value Reference Range Interpretation Comments WBC X 10x3 (test code = WBC X 10x3) 7.9 3.7-10.4 [place] 714731-05-24 21:13:00 Test Item Value Reference Range Interpretation Comments RBC X 10x6 (test code = RBC X 10x6) 4.80 4.20-5.40 [place] 714731-05-24 21:13:00 Test Item Value Reference Range Interpretation Comments Hgb (test code = Hgb) 12.4 12.0-16.0 [place] 714731-05-24 21:13:00 Test Item Value Reference Range Interpretation Comments Hct (test code = Hct) 37.9 36.0-48.0 [place] [address]-05-24 21:13:00 Test Item Value Reference Range Interpretation Comments MCV (test code = MCV) 78.9 80.0-98.0 [place] 714731-05-24 21:13:00 Test Item Value Reference Range Interpretation Comments MCH (test code = MCH) 25.7 pg 27.0-31.0 [place] 714731-05-24 21:13:00 Test Item Value Reference Range Interpretation Comments MCHC (test code = MCHC) 32.6 32.0-36.0 [place] 714731-05-24 21:13:00 Test Item Value Reference Range Interpretation Comments RDW (test code = RDW) 15.5 11.5-14.5 [place] 714731-05-24 21:13:00 Test Item Value Reference Range Interpretation Comments Platelet (test code = Platelet) 243 133-450 [place] 714731-05-24 21:13:00 Test Item Value Reference Range Interpretation Comments MPV (test code = MPV) 9.4 7.4-10.4 [place] 714731-05-24 21:13:00 Test Item Value Reference Range Interpretation Comments Segs (test code = Segs) 56.1 45.0-75.0 [place] [address]-05-24 21:13:00 Test Item Value Reference Range Interpretation Comments Lymphocytes (test code = Lymphocytes) 32.2 20.0-40.0 [place] 714731-05-24 21:13:00 Test Item Value Reference Range Interpretation Comments Monocytes (test code = Monocytes) 9.1 2.0-12.0 [place] [address]-05-24 21:13:00 Test Item Value Reference Range Interpretation Comments Eosinophils (test code = 2.2 See_Comment [A utomated message] The Eosinophils) system which ge nerated this result tra nsmitted reference range : <=4.0. The reference r kat was not used to int erpret this result as normal/abnormal . [place]14731-05-24 21:13:00 Test Item Value Reference Range Interpretation Comments Basophils (test code = 0.4 See_Comment [Aut omated message] The Basophils) system which ge nerated this result tra nsmitted reference range : <=1.0. The reference r kat was not used to int erpret this result as normal/abnormal . [place] 172071-05-24 21:13:00 Test Item Value Reference Range Interpretation Comments Glucose Lvl (test code = Glucose Lvl) 89 70-99 [facility]2021-05-24 21:13:00 Test Item Value Reference Range Interpretation Comments BUN (test code = BUN) 8 7-22 [place] 172071-05-24 21:13:00 Test Item Value Reference Range Interpretation Comments Creatinine Lvl (test code = Creatinine 0.55 0.50-1.40 Lvl) [place] 172071-05-24 21:13:00 Test Item Value Reference Range Interpretation Comments Sodium Lvl (test code = Sodium Lvl) 140 135-145 [place] 172071-05-24 21:13:00 Test Item Value Reference Range Interpretation Comments Potassium Lvl (test code = Potassium 3.5 3.5-5.1 Lvl) [place] 1720[address]-05-24 21:13:00 Test Item Value Reference Range Interpretation Comments Chloride Lvl (test code = Chloride Lvl) 109 95-109 [place] 172071-05-24 21:13:00 Test Item Value Reference Range Interpretation Comments CO2 (test code = CO2) 27 24-32 [place] 172071-05-24 21:13:00 Test Item Value Reference Range Interpretation Comments Calcium Lvl (test code = Calcium Lvl) 9.0 8.5-10.5 [place] 172071-05-24 21:13:00 Test Item Value Reference Range Interpretation Comments AGAP (test code = AGAP) 7.5 10.0-20.0 [place] 172071-05-24 21:13:00 Test Item Value Reference Range Interpretation Comments eGFR (test code = eGFR) 126 [place]14731-05-24 21:13:00 Test Item Value Reference Range Interpretation Comments Neutrophils # (test code = Neutrophils 4.4 1.5-8.1 #) [place] 172071-05-24 21:13:00 Test Item Value Reference Range Interpretation Comments Lactic Acid Lvl (test code = Lactic 0.6 0.5-2.2 Acid Lvl) [facility]PHXRGPLHRVEBM7798-48-79 21:13:00 Test Item Value Reference Range Interpretation Comments hCG Tot (test code = hCG Tot) no gt [facility]wayZpzqeatRQJYFIMGFT3909-68-69 21:13:00 Test Item Value Reference Range Interpretation Comments WBC X 10x3 (test code = WBC X 10x3) 7.9 3.7-10.4 [place]14731-05-24 21:13:00 Test Item Value Reference Range Interpretation Comments RBC X 10x6 (test code = RBC X 10x6) 4.80 4.20-5.40 [facility]wayVvvreyoLCWLPVYUQA3678-76-12 21:13:00 Test Item Value Reference Range Interpretation Comments Hgb (test code = Hgb) 12.4 12.0-16.0 [place] [address]-05-24 21:13:00 Test Item Value Reference Range Interpretation Comments Hct (test code = Hct) 37.9 36.0-48.0 [place]14731-05-24 21:13:00 Test Item Value Reference Range Interpretation Comments MCV (test code = MCV) 78.9 80.0-98.0 [facility] LakewayOaerwwqDKBHIEOFOU7294-43-31 21:13:00 Test Item Value Reference Range Interpretation Comments MCH (test code = MCH) 25.7 pg 27.0-31.0 [place]14731-05-24 21:13:00 Test Item Value Reference Range Interpretation Comments MCHC (test code = MCHC) 32.6 32.0-36.0 [facility] LakewayHslyrjpSTCFDUUNHQ5037-24-78 21:13:00 Test Item Value Reference Range Interpretation Comments RDW (test code = RDW) 15.5 11.5-14.5 [facility] LakewayWspyvgyBFCLHBKPVQ2752-19-46 21:13:00 Test Item Value Reference Range Interpretation Comments Lymphocytes # (test code = Lymphocytes 2.5 1.0-5.5 #) [facility]wayWwgnldfARDWQTKHZI4154-49-96 21:13:00 Test Item Value Reference Range Interpretation Comments Platelet (test code = Platelet) 243 133-450 [facility] LakewayIlyyruqALNYNRGVTL5147-40-08 21:13:00 Test Item Value Reference Range Interpretation Comments MPV (test code = MPV) 9.4 7.4-10.4 [place] 714731-05-24 21:13:00 Test Item Value Reference Range Interpretation Comments Segs (test code = Segs) 56.1 45.0-75.0 [place] 714731-05-24 21:13:00 Test Item Value Reference Range Interpretation Comments Lymphocytes (test code = Lymphocytes) 32.2 20.0-40.0 [place] 714731-05-24 21:13:00 Test Item Value Reference Range Interpretation Comments Monocytes (test code = Monocytes) 9.1 2.0-12.0 [place] 714731-05-24 21:13:00 Test Item Value Reference Range Interpretation Comments Eosinophils (test code = 2.2 See_Comment [A utomated message] The Eosinophils) system which ge nerated this result tra nsmitted reference range : <=4.0. The reference r kat was not used to int erpret this result as normal/abnormal . [place]14731-05-24 21:13:00 Test Item Value Reference Range Interpretation Comments Basophils (test code = 0.4 See_Comment [Aut omated message] The Basophils) system which ge nerated this result tra nsmitted reference range : <=1.0. The reference r kat was not used to int erpret this result as normal/abnormal . [place]14731-05-24 21:13:00 Test Item Value Reference Range Interpretation Comments Neutrophils # (test code = Neutrophils 4.4 1.5-8.1 #) [place] [address]-05-24 21:13:00 Test Item Value Reference Range Interpretation Comments Lymphocytes # (test code = Lymphocytes 2.5 1.0-5.5 #) [place] [address]-05-24 21:13:00 Test Item Value Reference Range Interpretation Comments Monocytes # (test code 0.7 See_Comment [Aut omated message] The = Monocytes #) system which generated this result tra nsmitted reference range : <=0.8. The reference r kat was not used to int erpret this result as normal/abnormal . [place]14731-05-24 21:13:00 Test Item Value Reference Range Interpretation Comments Monocytes # (test code 0.7 See_Comment [Aut omated message] The = Monocytes #) system which generated this result tra nsmitted reference range : <=0.8. The reference r kat was not used to int erpret this result as normal/abnormal . [place] [address]-05-24 21:13:00 Test Item Value Reference Range Interpretation Comments Eosinophils # (test code 0.2 See_Comment [A utomated message] The = Eosinophils #) system wh h generated this result tra nsmitted reference range : <=0.5. The reference r kat was not used to int erpret this result as normal/abnormal . [place]14731-05-24 21:13:00 Test Item Value Reference Range Interpretation Comments Microcyte (test code = 1+ *ABN*(01/20/21 Microcyte) 4:13 PM) [place] 714731-05-24 21:13:00 Test Item Value Reference Range Interpretation Comments Eosinophils # (test code 0.2 See_Comment [A utomated message] The = Eosinophils #) system whic h generated this result tra nsmitted reference range : <=0.5. The reference r kat was not used to int erpret this result as normal/abnormal . [place]14731-05-24 21:13:00 Test Item Value Reference Range Interpretation Comments Microcyte (test code = 1+ *ABN*(01/20/21 Microcyte) 4:13 PM) [place] 172071-05-24 21:13:00 Test Item Value Reference Range Interpretation Comments Glucose Lvl (test code = Glucose Lvl) 89 70-99 [facility]2021-05-24 21:13:00 Test Item Value Reference Range Interpretation Comments BUN (test code = BUN) 8 7-22 [facility]2021-05-24 21:13:00 Test Item Value Reference Range Interpretation Comments Creatinine Lvl (test code = Creatinine 0.55 0.50-1.40 Lvl) [facility]2021-05-24 21:13:00 Test Item Value Reference Range Interpretation Comments Sodium Lvl (test code = Sodium Lvl) 140 135-145 [facility]2021-05-24 21:13:00 Test Item Value Reference Range Interpretation Comments Potassium Lvl (test code = Potassium 3.5 3.5-5.1 Lvl) [place] 172071-05-24 21:13:00 Test Item Value Reference Range Interpretation Comments Chloride Lvl (test code = Chloride Lvl) 109 95-109 [place] 172071-05-24 21:13:00 Test Item Value Reference Range Interpretation Comments CO2 (test code = CO2) 27 24-32 [place] 172071-05-24 21:13:00 Test Item Value Reference Range Interpretation Comments Calcium Lvl (test code = Calcium Lvl) 9.0 8.5-10.5 [place] 172071-05-24 21:13:00 Test Item Value Reference Range Interpretation Comments AGAP (test code = AGAP) 7.5 10.0-20.0 [facility]2021-05-24 21:13:00 Test Item Value Reference Range Interpretation Comments eGFR (test code = eGFR) 126 [facility]2021-05-24 21:13:00 Test Item Value Reference Range Interpretation Comments Lactic Acid Lvl (test code = Lactic 0.6 0.5-2.2 Acid Lvl) [facility]CqngqiwYNYUBNAKYCLQO2275-71-27 21:13:00 Test Item Value Reference Range Interpretation Comments hCG Tot (test code = hCG Tot) no gt [facility]wayIxrpzvcVIERKBSUIW7262-47-12 21:13:00 Test Item Value Reference Range Interpretation Comments WBC X 10x3 (test code = WBC X 10x3) 7.9 3.7-10.4 [facility] LakewayMsyciarTTDPALTDMV3361-06-00 21:13:00 Test Item Value Reference Range Interpretation Comments RBC X 10x6 (test code = RBC X 10x6) 4.80 4.20-5.40 [facility] LakewayFcessfiKSOIKLIPSD9737-68-96 21:13:00 Test Item Value Reference Range Interpretation Comments Hgb (test code = Hgb) 12.4 12.0-16.0 [facility] LakewayRmgihelBTFMNHJOQB0807-25-01 21:13:00 Test Item Value Reference Range Interpretation Comments Hct (test code = Hct) 37.9 36.0-48.0 [facility] LakewayPaijqxwFWMJGXCZRI5002-62-27 21:13:00 Test Item Value Reference Range Interpretation Comments MCV (test code = MCV) 78.9 80.0-98.0 [place]14731-05-24 21:13:00 Test Item Value Reference Range Interpretation Comments MCH (test code = MCH) 25.7 pg 27.0-31.0 [facility] LakewayWeebyljRJLZANXKUO5185-82-36 21:13:00 Test Item Value Reference Range Interpretation Comments MCHC (test code = MCHC) 32.6 32.0-36.0 [facility] LakewayCxsayvxCWNTBVLAAL3587-33-66 21:13:00 Test Item Value Reference Range Interpretation Comments RDW (test code = RDW) 15.5 11.5-14.5 [facility] LakewayYewmjarBUCGSTNUWY8111-63-99 21:13:00 Test Item Value Reference Range Interpretation Comments Platelet (test code = Platelet) 243 133-450 [place]14731-05-24 21:13:00 Test Item Value Reference Range Interpretation Comments MPV (test code = MPV) 9.4 7.4-10.4 [place] 714731-05-24 21:13:00 Test Item Value Reference Range Interpretation Comments Segs (test code = Segs) 56.1 45.0-75.0 [place]14731-05-24 21:13:00 Test Item Value Reference Range Interpretation Comments Lymphocytes (test code = Lymphocytes) 32.2 20.0-40.0 [place] [address]-05-24 21:13:00 Test Item Value Reference Range Interpretation Comments Monocytes (test code = Monocytes) 9.1 2.0-12.0 [place] [address]-05-24 21:13:00 Test Item Value Reference Range Interpretation Comments Eosinophils (test code = 2.2 See_Comment [A utomated message] The Eosinophils) system which ge nerated this result tra nsmitted reference range : <=4.0. The reference r kat was not used to int erpret this result as normal/abnormal . [place] [address]-05-24 21:13:00 Test Item Value Reference Range Interpretation Comments Basophils (test code = 0.4 See_Comment [Aut omated message] The Basophils) system which ge nerated this result tra nsmitted reference range : <=1.0. The reference r kat was not used to int erpret this result as normal/abnormal . [place]14731-05-24 21:13:00 Test Item Value Reference Range Interpretation Comments Neutrophils # (test code = Neutrophils 4.4 1.5-8.1 #) [place] [address]-05-24 21:13:00 Test Item Value Reference Range Interpretation Comments Lymphocytes # (test code = Lymphocytes 2.5 1.0-5.5 #) [place] [address]-05-24 21:13:00 Test Item Value Reference Range Interpretation Comments Monocytes # (test code 0.7 See_Comment [Aut omated message] The = Monocytes #) system which generated this result tra nsmitted reference range : <=0.8. The reference r kat was not used to int erpret this result as normal/abnormal . [place]14731-05-24 21:13:00 Test Item Value Reference Range Interpretation Comments Eosinophils # (test code 0.2 See_Comment [A utomated message] The = Eosinophils #) system [employer] h generated this result tra nsmitted reference range : <=0.5. The reference r kat was not used to int erpret this result as normal/abnormal . [place]14731-05-24 21:13:00 Test Item Value Reference Range Interpretation Comments Microcyte (test code = 1+ *ABN*(01/20/21 Microcyte) 4:13 PM) [place] 172071-05-24 21:13:00 Test Item Value Reference Range Interpretation Comments Glucose Lvl (test code = Glucose Lvl) 89 70-99 [place] 172071-05-24 21:13:00 Test Item Value Reference Range Interpretation Comments BUN (test code = BUN) 8 7-22 [place] 172071-05-24 21:13:00 Test Item Value Reference Range Interpretation Comments Creatinine Lvl (test code = Creatinine 0.55 0.50-1.40 Lvl) [place] 172071-05-24 21:13:00 Test Item Value Reference Range Interpretation Comments Sodium Lvl (test code = Sodium Lvl) 140 135-145 [place] 172071-05-24 21:13:00 Test Item Value Reference Range Interpretation Comments Potassium Lvl (test code = Potassium 3.5 3.5-5.1 Lvl) [place] 172071-05-24 21:13:00 Test Item Value Reference Range Interpretation Comments Chloride Lvl (test code = Chloride Lvl) 109 95-109 [place] 172071-05-24 21:13:00 Test Item Value Reference Range Interpretation Comments CO2 (test code = CO2) 27 24-32 [place] 172071-05-24 21:13:00 Test Item Value Reference Range Interpretation Comments Calcium Lvl (test code = Calcium Lvl) 9.0 8.5-10.5 [place] 172071-05-24 21:13:00 Test Item Value Reference Range Interpretation Comments AGAP (test code = AGAP) 7.5 10.0-20.0 [facility]2021-05-24 21:13:00 Test Item Value Reference Range Interpretation Comments eGFR (test code = eGFR) 126 [facility]2021-05-24 21:13:00 Test Item Value Reference Range Interpretation Comments Lactic Acid Lvl (test code = Lactic 0.6 0.5-2.2 Acid Lvl) [facility] CenterPabaevkXEKFGSLBKUBOW5117-32-20 21:13:00 Test Item Value Reference Range Interpretation Comments hCG Tot (test code = hCG Tot) no gt [facility] LakewayQjdebqvKYPWMELEAS0731-78-42 21:13:00 Test Item Value Reference Range Interpretation Comments WBC X 10x3 (test code = WBC X 10x3) 7.9 3.7-10.4 [facility] LakewayYyumrorQVXPXJJWIU2397-01-63 21:13:00 Test Item Value Reference Range Interpretation Comments RBC X 10x6 (test code = RBC X 10x6) 4.80 4.20-5.40 [facility] LakewayXjzpremJMKFOZTEUR1185-94-41 21:13:00 Test Item Value Reference Range Interpretation Comments Hgb (test code = Hgb) 12.4 12.0-16.0 [facility] LakewayVmdxkegMVDCDNMAHW2038-82-74 21:13:00 Test Item Value Reference Range Interpretation Comments Hct (test code = Hct) 37.9 36.0-48.0 [facility] LakewayVmdpagfLLETEBDGRC7323-94-95 21:13:00 Test Item Value Reference Range Interpretation Comments MCV (test code = MCV) 78.9 80.0-98.0 [facility] LakewayMplhwdvYTPFNXAASJ7068-01-03 21:13:00 Test Item Value Reference Range Interpretation Comments MCH (test code = MCH) 25.7 pg 27.0-31.0 [facility] LakewayIyuyrnzOJRVZMRDYR6448-45-72 21:13:00 Test Item Value Reference Range Interpretation Comments MCHC (test code = MCHC) 32.6 32.0-36.0 [facility] LakewayKqjngynXJXKMEVREF1604-15-35 21:13:00 Test Item Value Reference Range Interpretation Comments RDW (test code = RDW) 15.5 11.5-14.5 [facility] LakewayCukaxhkUAGRLBCJGX4272-89-48 21:13:00 Test Item Value Reference Range Interpretation Comments Platelet (test code = Platelet) 243 133-450 [facility] LakewayAwgwuikCFIYVHXNUU0381-33-07 21:13:00 Test Item Value Reference Range Interpretation Comments MPV (test code = MPV) 9.4 7.4-10.4 [place]14731-05-24 21:13:00 Test Item Value Reference Range Interpretation Comments Segs (test code = Segs) 56.1 45.0-75.0 [place]14731-05-24 21:13:00 Test Item Value Reference Range Interpretation Comments Lymphocytes (test code = Lymphocytes) 32.2 20.0-40.0 [place]14731-05-24 21:13:00 Test Item Value Reference Range Interpretation Comments Monocytes (test code = Monocytes) 9.1 2.0-12.0 [place]14731-05-24 21:13:00 Test Item Value Reference Range Interpretation Comments Eosinophils (test code = 2.2 See_Comment [A utomated message] The Eosinophils) system which ge nerated this result tra nsmitted reference range : <=4.0. The reference r kat was not used to int erpret this result as normal/abnormal . [place] [place] [address]-[place] 21:13:00 Test Item Value Reference Range Interpretation Comments Basophils (test code = 0.4 See_Comment [Aut omated message] The Basophils) system which ge nerated this result tra nsmitted reference range : <=1.0. The reference r kat was not used to int erpret this result as normal/abnormal . [place] 714731-[place]-24 21:13:00 Test Item Value Reference Range Interpretation Comments Neutrophils # (test code = Neutrophils 4.4 1.5-8.1 #) [place] 714731-05-24 21:13:00 Test Item Value Reference Range Interpretation Comments Lymphocytes # (test code = Lymphocytes 2.5 1.0-5.5 #) [place] [address]-05-24 21:13:00 Test Item Value Reference Range Interpretation Comments Monocytes # (test code 0.7 See_Comment [Aut omated message] The = Monocytes #) system which generated this result tra nsmitted reference range : <=0.8. The reference r kat was not used to int erpret this result as normal/abnormal . [place] 714731-05-24 21:13:00 Test Item Value Reference Range Interpretation Comments Eosinophils # (test code 0.2 See_Comment [A utomated message] The = Eosinophils #) system [employer] h generated this result tra nsmitted reference range : <=0.5. The reference r kat was not used to int erpret this result as normal/abnormal . [facility]wayYnwobhfUBATRAXJIO5433-48-72 21:13:00 Test Item Value Reference Range Interpretation Comments Microcyte (test code = 1+ *ABN*(01/20/21 Microcyte) 4:13 PM) [facility]2021-05-24 21:13:00 Test Item Value Reference Range Interpretation Comments Glucose Lvl (test code = Glucose Lvl) 89 70-99 [place] 172071-05-24 21:13:00 Test Item Value Reference Range Interpretation Comments BUN (test code = BUN) 8 7-22 [place] 172071-05-24 21:13:00 Test Item Value Reference Range Interpretation Comments Creatinine Lvl (test code = Creatinine 0.55 0.50-1.40 Lvl) [facility]2021-05-24 21:13:00 Test Item Value Reference Range Interpretation Comments Sodium Lvl (test code = Sodium Lvl) 140 135-145 [place] 172071-05-24 21:13:00 Test Item Value Reference Range Interpretation Comments Potassium Lvl (test code = Potassium 3.5 3.5-5.1 Lvl) [facility]2021-05-24 21:13:00 Test Item Value Reference Range Interpretation Comments Chloride Lvl (test code = Chloride Lvl) 109 95-109 [facility]2021-05-24 21:13:00 Test Item Value Reference Range Interpretation Comments CO2 (test code = CO2) 27 24-32 [place] 172071-05-24 21:13:00 Test Item Value Reference Range Interpretation Comments Calcium Lvl (test code = Calcium Lvl) 9.0 8.5-10.5 [facility]2021-05-24 21:13:00 Test Item Value Reference Range Interpretation Comments AGAP (test code = AGAP) 7.5 10.0-20.0 [facility]2021-05-24 21:13:00 Test Item Value Reference Range Interpretation Comments eGFR (test code = eGFR) 126 [facility]2021-05-24 21:13:00 Test Item Value Reference Range Interpretation Comments Lactic Acid Lvl (test code = Lactic 0.6 0.5-2.2 Acid Lvl) [place] 85820021-05-24 21:13:00 Test Item Value Reference Range Interpretation Comments hCG Tot (test code = hCG Tot) no gt [facility] LakewayKkokhetBRVJAJCEWZ2583-02-98 21:13:00 Test Item Value Reference Range Interpretation Comments WBC X 10x3 (test code = WBC X 10x3) 7.9 3.7-10.4 [facility] LakewayMqlevqsQFKKQPUJIE6959-41-51 21:13:00 Test Item Value Reference Range Interpretation Comments RBC X 10x6 (test code = RBC X 10x6) 4.80 4.20-5.40 [facility] LakewayClwovdlLSYXDNVNXZ5846-89-59 21:13:00 Test Item Value Reference Range Interpretation Comments Hgb (test code = Hgb) 12.4 12.0-16.0 [facility]wayKrprvwkBIXDGZSZZP6573-04-53 21:13:00 Test Item Value Reference Range Interpretation Comments Hct (test code = Hct) 37.9 36.0-48.0 [facility] LakewayJflbptwWHPCILNYEU2680-16-74 21:13:00 Test Item Value Reference Range Interpretation Comments MCV (test code = MCV) 78.9 80.0-98.0 [facility] LakewayCvztrsvOYNCJNITYD2943-10-95 21:13:00 Test Item Value Reference Range Interpretation Comments MCH (test code = MCH) 25.7 pg 27.0-31.0 [facility] LakewayXjihuswGATYVJHXXD7329-97-12 21:13:00 Test Item Value Reference Range Interpretation Comments MCHC (test code = MCHC) 32.6 32.0-36.0 [facility] LakewayHkctgexKXYUCYQHMJ0553-48-74 21:13:00 Test Item Value Reference Range Interpretation Comments RDW (test code = RDW) 15.5 11.5-14.5 [facility] LakewayNznwdzuQCSJWAAWNX3683-20-49 21:13:00 Test Item Value Reference Range Interpretation Comments Platelet (test code = Platelet) 243 133-450 [facility] LakewayMgeqohyFEJVSITATL6212-52-46 21:13:00 Test Item Value Reference Range Interpretation Comments MPV (test code = MPV) 9.4 7.4-10.4 [place] [address]-05-24 21:13:00 Test Item Value Reference Range Interpretation Comments Segs (test code = Segs) 56.1 45.0-75.0 [place] [address]-05-24 21:13:00 Test Item Value Reference Range Interpretation Comments Lymphocytes (test code = Lymphocytes) 32.2 20.0-40.0 [place] 714731-05-24 21:13:00 Test Item Value Reference Range Interpretation Comments Monocytes (test code = Monocytes) 9.1 2.0-12.0 [place] [address]-05-24 21:13:00 Test Item Value Reference Range Interpretation Comments Eosinophils (test code = 2.2 See_Comment [A utomated message] The Eosinophils) system which ge nerated this result tra nsmitted reference range : <=4.0. The reference r kat was not used to int erpret this result as normal/abnormal . [place] [address]-05-24 21:13:00 Test Item Value Reference Range Interpretation Comments Basophils (test code = 0.4 See_Comment [Aut omated message] The Basophils) system which ge nerated this result tra nsmitted reference range : <=1.0. The reference r kat was not used to int erpret this result as normal/abnormal . [place] [address]-05-24 21:13:00 Test Item Value Reference Range Interpretation Comments Neutrophils # (test code = Neutrophils 4.4 1.5-8.1 #) [place] 714731-05-24 21:13:00 Test Item Value Reference Range Interpretation Comments Lymphocytes # (test code = Lymphocytes 2.5 1.0-5.5 #) [place] [address]-05-24 21:13:00 Test Item Value Reference Range Interpretation Comments Monocytes # (test code 0.7 See_Comment [Aut omated message] The = Monocytes #) system which generated this result tra nsmitted reference range : <=0.8. The reference r kat was not used to int erpret this result as normal/abnormal . [place] 714731-05-24 21:13:00 Test Item Value Reference Range Interpretation Comments Eosinophils # (test code 0.2 See_Comment [A utomated message] The = Eosinophils #) system whic h generated this result tra nsmitted reference range : <=0.5. The reference r kat was not used to int erpret this result as normal/abnormal . [place] 714731-05-24 21:13:00 Test Item Value Reference Range Interpretation Comments Microcyte (test code = 1+ *ABN*(01/20/21 Microcyte) 4:13 PM) [place] 172071-05-24 21:13:00 Test Item Value Reference Range Interpretation Comments Glucose Lvl (test code = Glucose Lvl) 89 70-99 [place] 172071-05-24 21:13:00 Test Item Value Reference Range Interpretation Comments BUN (test code = BUN) 8 7-22 [place] 172071-05-24 21:13:00 Test Item Value Reference Range Interpretation Comments Creatinine Lvl (test code = Creatinine 0.55 0.50-1.40 Lvl) [place] 172071-05-24 21:13:00 Test Item Value Reference Range Interpretation Comments Sodium Lvl (test code = Sodium Lvl) 140 135-145 [place] 172071-05-24 21:13:00 Test Item Value Reference Range Interpretation Comments Potassium Lvl (test code = Potassium 3.5 3.5-5.1 Lvl) [place] 172071-05-24 21:13:00 Test Item Value Reference Range Interpretation Comments Chloride Lvl (test code = Chloride Lvl) 109 95-109 [place] 172071-05-24 21:13:00 Test Item Value Reference Range Interpretation Comments CO2 (test code = CO2) 27 24-32 [place] 172071-05-24 21:13:00 Test Item Value Reference Range Interpretation Comments Calcium Lvl (test code = Calcium Lvl) 9.0 8.5-10.5 [place] 172071-05-24 21:13:00 Test Item Value Reference Range Interpretation Comments AGAP (test code = AGAP) 7.5 10.0-20.0 [place] [address]-05-24 21:13:00 Test Item Value Reference Range Interpretation Comments eGFR (test code = eGFR) 126 [place] 172071-05-24 21:13:00 Test Item Value Reference Range Interpretation Comments Lactic Acid Lvl (test code = Lactic 0.6 0.5-2.2 Acid Lvl) [facility]NpfhyvyJFQYLOVIIXMSY6724-80-10 21:13:00 Test Item Value Reference Range Interpretation Comments hCG Tot (test code = hCG Tot) no gt [facility] LakewayIzczbtyXMCNHEDDWA7950-85-16 21:13:00 Test Item Value Reference Range Interpretation Comments WBC X 10x3 (test code = WBC X 10x3) 7.9 3.7-10.4 [facility] LakewayLmcduhkZQDBLLLAES8941-18-76 21:13:00 Test Item Value Reference Range Interpretation Comments RBC X 10x6 (test code = RBC X 10x6) 4.80 4.20-5.40 [facility] LakewayLdmvlcmCNRYGPHXRH1940-99-46 21:13:00 Test Item Value Reference Range Interpretation Comments Hgb (test code = Hgb) 12.4 12.0-16.0 [facility] LakewayOydfytvOYUOTBBUOP8002-20-22 21:13:00 Test Item Value Reference Range Interpretation Comments Hct (test code = Hct) 37.9 36.0-48.0 [facility] LakewayNgpgzphGSLOPGTVSK5668-54-90 21:13:00 Test Item Value Reference Range Interpretation Comments MCV (test code = MCV) 78.9 80.0-98.0 [facility] LakewayOmfjksoVUZTKMZLMY0481-92-31 21:13:00 Test Item Value Reference Range Interpretation Comments MCH (test code = MCH) 25.7 pg 27.0-31.0 [facility] LakewayVtzdcfbIPHMZVGUSM6447-75-02 21:13:00 Test Item Value Reference Range Interpretation Comments MCHC (test code = MCHC) 32.6 32.0-36.0 [facility] LakewayBbpwsguKRVEVXASWP4993-46-40 21:13:00 Test Item Value Reference Range Interpretation Comments RDW (test code = RDW) 15.5 11.5-14.5 [place] 714731-05-24 21:13:00 Test Item Value Reference Range Interpretation Comments Platelet (test code = Platelet) 243 133-450 [facility] LakewayGicvunaVRXUEIHVLB3508-49-93 21:13:00 Test Item Value Reference Range Interpretation Comments MPV (test code = MPV) 9.4 7.4-10.4 [place] 714731-05-24 21:13:00 Test Item Value Reference Range Interpretation Comments Segs (test code = Segs) 56.1 45.0-75.0 [facility] LakewayCoeoojrMBUPJTHXIW5200-05-89 21:13:00 Test Item Value Reference Range Interpretation Comments Lymphocytes (test code = Lymphocytes) 32.2 20.0-40.0 [place] 714731-05-24 21:13:00 Test Item Value Reference Range Interpretation Comments Monocytes (test code = Monocytes) 9.1 2.0-12.0 [place] 714731-05-24 21:13:00 Test Item Value Reference Range Interpretation Comments Eosinophils (test code = 2.2 See_Comment [A utomated message] The Eosinophils) system which ge nerated this result tra nsmitted reference range : <=4.0. The reference r kat was not used to int erpret this result as normal/abnormal . [place] 714731-05-24 21:13:00 Test Item Value Reference Range Interpretation Comments Basophils (test code = 0.4 See_Comment [Aut omated message] The Basophils) system which ge nerated this result tra nsmitted reference range : <=1.0. The reference r kat was not used to int erpret this result as normal/abnormal . [facility] LakewayKhccgebCUMEKIGMPW1771-63-72 21:13:00 Test Item Value Reference Range Interpretation Comments Neutrophils # (test code = Neutrophils 4.4 1.5-8.1 #) [facility] LakewayYcdvpnpYBOUOZIKXA9589-22-40 21:13:00 Test Item Value Reference Range Interpretation Comments Lymphocytes # (test code = Lymphocytes 2.5 1.0-5.5 #) [place] 714731-05-24 21:13:00 Test Item Value Reference Range Interpretation Comments Monocytes # (test code 0.7 See_Comment [Aut omated message] The = Monocytes #) system which generated this result tra nsmitted reference range : <=0.8. The reference r kat was not used to int erpret this result as normal/abnormal . [place] 714731-05-24 21:13:00 Test Item Value Reference Range Interpretation Comments Eosinophils # (test code 0.2 See_Comment [A utomated message] The = Eosinophils #) system ic h generated this result tra nsmitted reference range : <=0.5. The reference r kat was not used to int erpret this result as normal/abnormal . [facility] LakewayMixxqgaDZAEVMHLEF4656-08-75 21:13:00 Test Item Value Reference Range Interpretation Comments Microcyte (test code = 1+ *ABN*(01/20/21 Microcyte) 4:13 PM) [facility]2016-01-21 13:03:00 Test Item Value Reference Range Interpretation Comments Magnesium Lvl (test code = Magnesium 1.9 1.8-2.4 Lvl) [facility]2016-01-21 13:03:00 Test Item Value Reference Range Interpretation Comments eGFR (test code = eGFR) 127 [facility]2016-01-21 13:03:00 Test Item Value Reference Range Interpretation Comments Creatinine Lvl (test code = Creatinine 0.60 0.50-1.40 Lvl) [facility]2016-01-21 13:03:00 Test Item Value Reference Range Interpretation Comments Glucose Lvl (test code = Glucose Lvl) 82 70-99 [facility]2016-01-21 13:03:00 Test Item Value Reference Range Interpretation Comments BUN (test code = BUN) 7 7-22 [facility]2016-01-21 13:03:00 Test Item Value Reference Range Interpretation Comments Potassium Lvl (test code = Potassium 4.1 3.5-5.1 Lvl) [facility]2016-01-21 13:03:00 Test Item Value Reference Range Interpretation Comments Sodium Lvl (test code = Sodium Lvl) 141 135-145 [facility]2016-01-21 13:03:00 Test Item Value Reference Range Interpretation Comments Chloride Lvl (test code = Chloride Lvl) 108 95-109 [facility]2016-01-21 13:03:00 Test Item Value Reference Range Interpretation Comments CO2 (test code = CO2) 20 24-32 [facility]2016-01-21 13:03:00 Test Item Value Reference Range Interpretation Comments Calcium Lvl (test code = Calcium Lvl) 8.9 8.5-10.5 [facility]2016-01-21 13:03:00 Test Item Value Reference Range Interpretation Comments AGAP (test code = AGAP) 17.1 10.0-20.0 [facility] LakewayMgklwhgQZDKXMFHAL5721-79-91 13:03:00 Test Item Value Reference Range Interpretation Comments Lymphocytes # (test code = Lymphocytes 2.3 1.0-5.5 #) [facility] LakewayLaekkevNVWIEEICPI4446-34-58 13:03:00 Test Item Value Reference Range Interpretation Comments Basophils (test code = 1.0 See_Comment [Aut omated message] The Basophils) system which ge nerated this result tra nsmitted reference range : <=1.0. The reference r kat was not used to int erpret this result as normal/abnormal . [facility] LakewayCskbtioTJWSFWABUH6007-44-44 13:03:00 Test Item Value Reference Range Interpretation Comments Segs-Bands # (test code = Segs-Bands #) 3.3 1.5-8.1 [facility] LakewayIfmdoznYLJYEZWAPM4553-79-39 13:03:00 Test Item Value Reference Range Interpretation Comments Eosinophils (test code = 2.5 See_Comment [A utomated message] The Eosinophils) system which ge nerated this result tra nsmitted reference range : <=4.0. The reference r kat was not used to int erpret this result as normal/abnormal . [facility] LakewayOlbwmauHJSDJRBTZP7144-31-89 13:03:00 Test Item Value Reference Range Interpretation Comments Eosinophils # (test code 0.2 See_Comment [A utomated message] The = Eosinophils #) system wh h generated this result tra nsmitted reference range : <=0.5. The reference r kat was not used to int erpret this result as normal/abnormal . [facility] LakewayFzhsskhRSKRENWEUF5286-75-21 13:03:00 Test Item Value Reference Range Interpretation Comments Monocytes # (test code 0.7 See_Comment [Aut omated message] The = Monocytes #) system which generated this result tra nsmitted reference range : <=0.8. The reference r kat was not used to int erpret this result as normal/abnormal . [facility] LakewayEztflpiQUCCOULKUS6683-90-81 13:03:00 Test Item Value Reference Range Interpretation Comments Microcyte (test code = 1+ *ABN*(09/19/15 Microcyte) 7:03 AM) [facility] LakewayQggvyppFZUHTMOZWD4679-48-89 13:03:00 Test Item Value Reference Range Interpretation Comments Basophils # (test code 0.1 See_Comment [Aut omated message] The = Basophils #) system which generated this result tra nsmitted reference range : <=0.2. The reference r kat was not used to int erpret this result as normal/abnormal . [facility] LakewayPfmhurvODVERGCREJ1544-90-84 13:03:00 Test Item Value Reference Range Interpretation Comments Monocytes (test code = Monocytes) 10.4 2.0-12.0 [facility] LakewayGelxalpWMPMFGMYBF1063-02-38 13:03:00 Test Item Value Reference Range Interpretation Comments Lymphocytes (test code = Lymphocytes) 35.3 20.0-40.0 [facility] LakewayCrkbyneKSTHJULIUB5072-20-57 13:03:00 Test Item Value Reference Range Interpretation Comments Segs (test code = Segs) 50.8 45.0-75.0 [facility] LakewayJbkonamRVHEMZHWPA8379-28-12 13:03:00 Test Item Value Reference Range Interpretation Comments MCHC (test code = MCHC) 30.5 32.0-36.0 [facility] LakewayDpehfofVJBKRWLWAY8747-27-46 13:03:00 Test Item Value Reference Range Interpretation Comments Platelet (test code = Platelet) 175 133-450 [facility] LakewayEluqbskCAIEUILIJA0109-81-85 13:03:00 Test Item Value Reference Range Interpretation Comments RDW (test code = RDW) 17.1 11.5-14.5 [facility] LakewayDyjdvzcTRJYVVLQYQ4772-06-79 13:03:00 Test Item Value Reference Range Interpretation Comments MCV (test code = MCV) 78.4 80.0-98.0 [facility] LakewayZlrtyblLGERHPGUTP5714-39-74 13:03:00 Test Item Value Reference Range Interpretation Comments MCH (test code = MCH) 24.0 pg 27.0-31.0 [facility] LakewaySyxezniXMACQXWCLC3258-01-93 13:03:00 Test Item Value Reference Range Interpretation Comments RBC (test code = RBC) 5.15 4.20-5.40 [facility] LakewayLvluqbrOHZNTYATSO8854-11-73 13:03:00 Test Item Value Reference Range Interpretation Comments Hct (test code = Hct) 40.4 36.0-48.0 [facility] LakewayPoycybxZOAZPWKHAX5105-99-46 13:03:00 Test Item Value Reference Range Interpretation Comments WBC (test code = WBC) 6.5 3.7-10.4 [facility] LakewayFkruyjeIMRYFFICIT7750-48-79 13:03:00 Test Item Value Reference Range Interpretation Comments MPV (test code = MPV) 10.2 7.4-10.4 [facility] LakewayVdmxosbUVMNJMFNGN9398-43-22 13:03:00 Test Item Value Reference Range Interpretation Comments Hgb (test code = Hgb) 12.3 12.0-16.0 [facility]2016-01-21 13:03:00 Test Item Value Reference Range Interpretation Comments Magnesium Lvl (test code = Magnesium 1.9 1.8-2.4 Lvl) [facility]2016-01-21 13:03:00 Test Item Value Reference Range Interpretation Comments eGFR (test code = eGFR) 127 [facility]2016-01-21 13:03:00 Test Item Value Reference Range Interpretation Comments Creatinine Lvl (test code = Creatinine 0.60 0.50-1.40 Lvl) [facility]2016-01-21 13:03:00 Test Item Value Reference Range Interpretation Comments Glucose Lvl (test code = Glucose Lvl) 82 70-99 [facility]2016-01-21 13:03:00 Test Item Value Reference Range Interpretation Comments BUN (test code = BUN) 7 7-22 [facility]2016-01-21 13:03:00 Test Item Value Reference Range Interpretation Comments Potassium Lvl (test code = Potassium 4.1 3.5-5.1 Lvl) [facility]2016-01-21 13:03:00 Test Item Value Reference Range Interpretation Comments Sodium Lvl (test code = Sodium Lvl) 141 135-145 [facility]2016-01-21 13:03:00 Test Item Value Reference Range Interpretation Comments Chloride Lvl (test code = Chloride Lvl) 108 95-109 [facility]2016-01-21 13:03:00 Test Item Value Reference Range Interpretation Comments CO2 (test code = CO2) 20 24-32 [facility]2016-01-21 13:03:00 Test Item Value Reference Range Interpretation Comments Calcium Lvl (test code = Calcium Lvl) 8.9 8.5-10.5 [facility]2016-01-21 13:03:00 Test Item Value Reference Range Interpretation Comments AGAP (test code = AGAP) 17.1 10.0-20.0 [facility] LakewayVslxgqhHGNFCYMCPE8621-96-55 13:03:00 Test Item Value Reference Range Interpretation Comments Lymphocytes # (test code = Lymphocytes 2.3 1.0-5.5 #) [facility] LakewayDktgradESQAKUOEBJ5608-98-58 13:03:00 Test Item Value Reference Range Interpretation Comments Basophils (test code = 1.0 See_Comment [Aut omated message] The Basophils) system which ge nerated this result tra nsmitted reference range : <=1.0. The reference r kat was not used to int erpret this result as normal/abnormal . [facility] LakewayOesocjpDKTHATMZUA5550-74-46 13:03:00 Test Item Value Reference Range Interpretation Comments Segs-Bands # (test code = Segs-Bands #) 3.3 1.5-8.1 [facility] LakewayGlevdppANMFFSZMPV1731-03-35 13:03:00 Test Item Value Reference Range Interpretation Comments Eosinophils (test code = 2.5 See_Comment [A utomated message] The Eosinophils) system which ge nerated this result tra nsmitted reference range : <=4.0. The reference r kat was not used to int erpret this result as normal/abnormal . [facility] LakewayKhjirubMRBIHGYYSP3272-04-47 13:03:00 Test Item Value Reference Range Interpretation Comments Eosinophils # (test code 0.2 See_Comment [A utomated message] The = Eosinophils #) system wh h generated this result tra nsmitted reference range : <=0.5. The reference r kat was not used to int erpret this result as normal/abnormal . [facility] LakewayPveopkrZWRLRGREIU8809-17-61 13:03:00 Test Item Value Reference Range Interpretation Comments Monocytes # (test code 0.7 See_Comment [Aut omated message] The = Monocytes #) system which generated this result tra nsmitted reference range : <=0.8. The reference r kat was not used to int erpret this result as normal/abnormal . [facility] LakewayMbbipmoGBGQKYJNGB0422-80-34 13:03:00 Test Item Value Reference Range Interpretation Comments Microcyte (test code = 1+ *ABN*(09/19/15 Microcyte) 7:03 AM) [facility] LakewayRownpzoIXBYEUKGEG1086-45-95 13:03:00 Test Item Value Reference Range Interpretation Comments Basophils # (test code 0.1 See_Comment [Aut omated message] The = Basophils #) system which generated this result tra nsmitted reference range : <=0.2. The reference r kat was not used to int erpret this result as normal/abnormal . [facility] LakewayWwvliptSDBHPTTQQT1484-16-54 13:03:00 Test Item Value Reference Range Interpretation Comments Monocytes (test code = Monocytes) 10.4 2.0-12.0 [facility] LakewayBelzxbrBVMTFQNBYP9763-53-90 13:03:00 Test Item Value Reference Range Interpretation Comments Lymphocytes (test code = Lymphocytes) 35.3 20.0-40.0 [facility] [place]WscnnkyJZOGJFDOKQ9366-28-48 13:03:00 Test Item Value Reference Range Interpretation Comments Segs (test code = Segs) 50.8 45.0-75.0 [facility] LakewayZaojoviMVKFYPGTTR5726-50-02 13:03:00 Test Item Value Reference Range Interpretation Comments MCHC (test code = MCHC) 30.5 32.0-36.0 [facility] LakewayOmbhgwuSQIPKVYYLB0490-91-82 13:03:00 Test Item Value Reference Range Interpretation Comments Platelet (test code = Platelet) 175 133-450 [facility] LakewayAgimgsnLRKQHTXPTZ1172-48-31 13:03:00 Test Item Value Reference Range Interpretation Comments RDW (test code = RDW) 17.1 11.5-14.5 [facility] LakewayKrskswjDFNMEZKGNW5775-16-55 13:03:00 Test Item Value Reference Range Interpretation Comments MCV (test code = MCV) 78.4 80.0-98.0 [facility] LakewayQpdzoowNYECHOMQYE6812-29-16 13:03:00 Test Item Value Reference Range Interpretation Comments MCH (test code = MCH) 24.0 pg 27.0-31.0 [facility] LakewaySdfhgrjLNRWLBGGWM9302-77-58 13:03:00 Test Item Value Reference Range Interpretation Comments RBC (test code = RBC) 5.15 4.20-5.40 [facility] LakewaySgoeivoPDBCRFIBIA5769-11-63 13:03:00 Test Item Value Reference Range Interpretation Comments Hct (test code = Hct) 40.4 36.0-48.0 [facility] LakewayQaembuiLBAKHURRYD0382-59-40 13:03:00 Test Item Value Reference Range Interpretation Comments WBC (test code = WBC) 6.5 3.7-10.4 [facility] LakewayEogkuvlTMZIZYGSMZ1504-63-58 13:03:00 Test Item Value Reference Range Interpretation Comments MPV (test code = MPV) 10.2 7.4-10.4 [facility] LakewayQpajpuzTCPENTWPSG7487-79-71 13:03:00 Test Item Value Reference Range Interpretation Comments Hgb (test code = Hgb) 12.3 12.0-16.0 [facility]2016-01-21 13:03:00 Test Item Value Reference Range Interpretation Comments Magnesium Lvl (test code = Magnesium 1.9 1.8-2.4 Lvl) [facility]2016-01-21 13:03:00 Test Item Value Reference Range Interpretation Comments eGFR (test code = eGFR) 127 [facility]2016-01-21 13:03:00 Test Item Value Reference Range Interpretation Comments Creatinine Lvl (test code = Creatinine 0.60 0.50-1.40 Lvl) [facility]2016-01-21 13:03:00 Test Item Value Reference Range Interpretation Comments Glucose Lvl (test code = Glucose Lvl) 82 70-99 [facility]2016-01-21 13:03:00 Test Item Value Reference Range Interpretation Comments BUN (test code = BUN) 7 7-22 [facility]2016-01-21 13:03:00 Test Item Value Reference Range Interpretation Comments Potassium Lvl (test code = Potassium 4.1 3.5-5.1 Lvl) [facility]2016-01-21 13:03:00 Test Item Value Reference Range Interpretation Comments Sodium Lvl (test code = Sodium Lvl) 141 135-145 [facility]2016-01-21 13:03:00 Test Item Value Reference Range Interpretation Comments Chloride Lvl (test code = Chloride Lvl) 108 95-109 [facility]2016-01-21 13:03:00 Test Item Value Reference Range Interpretation Comments CO2 (test code = CO2) 20 24-32 [facility]2016-01-21 13:03:00 Test Item Value Reference Range Interpretation Comments Calcium Lvl (test code = Calcium Lvl) 8.9 8.5-10.5 [facility]2016-01-21 13:03:00 Test Item Value Reference Range Interpretation Comments AGAP (test code = AGAP) 17.1 10.0-20.0 [facility] LakewayNhjurhiXPJWRFFLPV1514-29-24 13:03:00 Test Item Value Reference Range Interpretation Comments Lymphocytes # (test code = Lymphocytes 2.3 1.0-5.5 #) [facility] LakewayIjzfvulEXQIRSVQOH0376-22-36 13:03:00 Test Item Value Reference Range Interpretation Comments Basophils (test code = 1.0 See_Comment [Aut omated message] The Basophils) system which ge nerated this result tra nsmitted reference range : <=1.0. The reference r kat was not used to int erpret this result as normal/abnormal . [facility] LakewayYaiedbtYHLCNCDZUT4872-06-70 13:03:00 Test Item Value Reference Range Interpretation Comments Segs-Bands # (test code = Segs-Bands #) 3.3 1.5-8.1 [facility] LakewayXjrfvsiMFPMWHUPKZ2629-24-74 13:03:00 Test Item Value Reference Range Interpretation Comments Eosinophils (test code = 2.5 See_Comment [A utomated message] The Eosinophils) system which ge nerated this result tra nsmitted reference range : <=4.0. The reference r kat was not used to int erpret this result as normal/abnormal . [facility] LakewayPudxnubRVVRPAKGYA8688-40-95 13:03:00 Test Item Value Reference Range Interpretation Comments Eosinophils # (test code 0.2 See_Comment [A utomated message] The = Eosinophils #) system whic h generated this result tra nsmitted reference range : <=0.5. The reference r kat was not used to int erpret this result as normal/abnormal . [facility] LakewayJifgbnjVXTAARAWWW0840-59-13 13:03:00 Test Item Value Reference Range Interpretation Comments Monocytes # (test code 0.7 See_Comment [Aut omated message] The = Monocytes #) system which generated this result tra nsmitted reference range : <=0.8. The reference r kat was not used to int erpret this result as normal/abnormal . [facility] LakewayAwomfrgTGTMEDELVQ7597-52-64 13:03:00 Test Item Value Reference Range Interpretation Comments Microcyte (test code = 1+ *ABN*(09/19/15 Microcyte) 7:03 AM) [facility] LakewayJgvjzsgLPSLOQFJNX8105-57-70 13:03:00 Test Item Value Reference Range Interpretation Comments Basophils # (test code 0.1 See_Comment [Aut omated message] The = Basophils #) system which generated this result tra nsmitted reference range : <=0.2. The reference r kat was not used to int erpret this result as normal/abnormal . [facility] LakewayIbdxhlzSTUHERIQMZ7809-98-78 13:03:00 Test Item Value Reference Range Interpretation Comments Monocytes (test code = Monocytes) 10.4 2.0-12.0 [facility] LakewayXtktfsxJXVQYJYCLI0976-23-37 13:03:00 Test Item Value Reference Range Interpretation Comments Lymphocytes (test code = Lymphocytes) 35.3 20.0-40.0 [facility] LakewayNcqaokwNYJVNOJLER6727-44-91 13:03:00 Test Item Value Reference Range Interpretation Comments Segs (test code = Segs) 50.8 45.0-75.0 [facility] LakewayWdvlvjmIIYYOLFCJS5860-04-26 13:03:00 Test Item Value Reference Range Interpretation Comments MCHC (test code = MCHC) 30.5 32.0-36.0 [facility] LakewayXvaeairIIJCBXIOQS2124-12-86 13:03:00 Test Item Value Reference Range Interpretation Comments Platelet (test code = Platelet) 175 133-450 [facility] LakewayTefqenlDGGLCWLTTT0020-55-11 13:03:00 Test Item Value Reference Range Interpretation Comments RDW (test code = RDW) 17.1 11.5-14.5 [facility] LakewayMvfirazHYLQTMKOTV0195-29-06 13:03:00 Test Item Value Reference Range Interpretation Comments MCV (test code = MCV) 78.4 80.0-98.0 [facility] LakewayPjqnccsKQLJCMFIXH5180-01-66 13:03:00 Test Item Value Reference Range Interpretation Comments MCH (test code = MCH) 24.0 pg 27.0-31.0 [facility]AjeyzypMEHKWYLYVL5427-27-57 13:03:00 Test Item Value Reference Range Interpretation Comments RBC (test code = RBC) 5.15 4.20-5.40 [facility] CenterCHEM WZEDK8472-32-94 13:03:00 Test Item Value Reference Range Interpretation Comments Magnesium Lvl (test code = Magnesium 1.9 1.8-2.4 Lvl) [facility] LakewayVsnphhzYOGDXHLSGI2234-43-42 13:03:00 Test Item Value Reference Range Interpretation Comments Hct (test code = Hct) 40.4 36.0-48.0 [facility] LakewayHmlldkwKPZWPKXJQL9287-02-54 13:03:00 Test Item Value Reference Range Interpretation Comments WBC (test code = WBC) 6.5 3.7-10.4 [facility] LakewaySdupvtrDHXYWDXFPY3128-31-38 13:03:00 Test Item Value Reference Range Interpretation Comments MPV (test code = MPV) 10.2 7.4-10.4 [facility] LakewayJlulfvrZUUHTPPQCK0689-78-29 13:03:00 Test Item Value Reference Range Interpretation Comments Hgb (test code = Hgb) 12.3 12.0-16.0 [facility]2016-01-21 13:03:00 Test Item Value Reference Range Interpretation Comments eGFR (test code = eGFR) 127 [facility]2016-01-21 13:03:00 Test Item Value Reference Range Interpretation Comments Creatinine Lvl (test code = Creatinine 0.60 0.50-1.40 Lvl) [facility]2016-01-21 13:03:00 Test Item Value Reference Range Interpretation Comments Glucose Lvl (test code = Glucose Lvl) 82 70-99 [facility]2016-01-21 13:03:00 Test Item Value Reference Range Interpretation Comments BUN (test code = BUN) 7 7-22 [facility]2016-01-21 13:03:00 Test Item Value Reference Range Interpretation Comments Potassium Lvl (test code = Potassium 4.1 3.5-5.1 Lvl) [facility]2016-01-21 13:03:00 Test Item Value Reference Range Interpretation Comments Sodium Lvl (test code = Sodium Lvl) 141 135-145 [facility]2016-01-21 13:03:00 Test Item Value Reference Range Interpretation Comments Chloride Lvl (test code = Chloride Lvl) 108 95-109 [facility]2016-01-21 13:03:00 Test Item Value Reference Range Interpretation Comments CO2 (test code = CO2) 20 24-32 [facility]2016-01-21 13:03:00 Test Item Value Reference Range Interpretation Comments Calcium Lvl (test code = Calcium Lvl) 8.9 8.5-10.5 [facility]2016-01-21 13:03:00 Test Item Value Reference Range Interpretation Comments AGAP (test code = AGAP) 17.1 10.0-20.0 [facility] LakewayMdtjgmeJMHIUZYPWX9097-15-10 13:03:00 Test Item Value Reference Range Interpretation Comments Lymphocytes # (test code = Lymphocytes 2.3 1.0-5.5 #) [facility] LakewayLvltnywEKSPQPHRZJ4101-56-16 13:03:00 Test Item Value Reference Range Interpretation Comments Basophils (test code = 1.0 See_Comment [Aut omated message] The Basophils) system which ge nerated this result tra nsmitted reference range : <=1.0. The reference r kat was not used to int erpret this result as normal/abnormal . [facility] LakewayLgjguusGUVQVJDRSK8369-40-24 13:03:00 Test Item Value Reference Range Interpretation Comments Segs-Bands # (test code = Segs-Bands #) 3.3 1.5-8.1 [facility] LakewayXjflomlIKYBZDHXTD3666-23-90 13:03:00 Test Item Value Reference Range Interpretation Comments Eosinophils (test code = 2.5 See_Comment [A utomated message] The Eosinophils) system which ge nerated this result tra nsmitted reference range : <=4.0. The reference r kat was not used to int erpret this result as normal/abnormal . [facility] LakewayOhpcjxkYNGYSWBGFW1351-79-18 13:03:00 Test Item Value Reference Range Interpretation Comments Eosinophils # (test code 0.2 See_Comment [A utomated message] The = Eosinophils #) system whic h generated this result tra nsmitted reference range : <=0.5. The reference r kat was not used to int erpret this result as normal/abnormal . [facility] LakewayXutznuaXKJHCHPCZV7499-28-40 13:03:00 Test Item Value Reference Range Interpretation Comments Monocytes # (test code 0.7 See_Comment [Aut omated message] The = Monocytes #) system which generated this result tra nsmitted reference range : <=0.8. The reference r kat was not used to int erpret this result as normal/abnormal . [facility] LakewayHsqifxoHRVUKRKLGF2324-26-71 13:03:00 Test Item Value Reference Range Interpretation Comments Microcyte (test code = 1+ *ABN*(09/19/15 Microcyte) 7:03 AM) [facility] LakewayCxdkansMUKURXVXBR0442-89-96 13:03:00 Test Item Value Reference Range Interpretation Comments Basophils # (test code 0.1 See_Comment [Aut omated message] The = Basophils #) system which generated this result tra nsmitted reference range : <=0.2. The reference r kat was not used to int erpret this result as normal/abnormal . [facility] LakewayYkcphkvVGRHLMIBEY3754-60-00 13:03:00 Test Item Value Reference Range Interpretation Comments Monocytes (test code = Monocytes) 10.4 2.0-12.0 [facility] LakewayAjchmhpDUBSYXTAYX6784-70-23 13:03:00 Test Item Value Reference Range Interpretation Comments Lymphocytes (test code = Lymphocytes) 35.3 20.0-40.0 [facility] LakewayPnrociuMGGTZBAFOS6098-03-03 13:03:00 Test Item Value Reference Range Interpretation Comments Segs (test code = Segs) 50.8 45.0-75.0 [facility] LakewayWbdpwqgFEUFFSFKDN8834-29-47 13:03:00 Test Item Value Reference Range Interpretation Comments MCHC (test code = MCHC) 30.5 32.0-36.0 [facility] LakewayHdsljxqYRYVTMZHNL0296-93-30 13:03:00 Test Item Value Reference Range Interpretation Comments Platelet (test code = Platelet) 175 133-450 [facility] LakewayWtnojmnLZXLNADHIF4924-92-17 13:03:00 Test Item Value Reference Range Interpretation Comments RDW (test code = RDW) 17.1 11.5-14.5 [facility] LakewayGsrwcuaFFIRAEGFXB8074-62-30 13:03:00 Test Item Value Reference Range Interpretation Comments MCV (test code = MCV) 78.4 80.0-98.0 [facility] LakewayLdhazydZVOUPPMUTW6390-70-41 13:03:00 Test Item Value Reference Range Interpretation Comments MCH (test code = MCH) 24.0 pg 27.0-31.0 [facility] LakewayHyqpvilWXQDFAUSSM0055-09-64 13:03:00 Test Item Value Reference Range Interpretation Comments RBC (test code = RBC) 5.15 4.20-5.40 [facility] LakewayQmkejkvPQONXUNDAL5142-00-66 13:03:00 Test Item Value Reference Range Interpretation Comments Hct (test code = Hct) 40.4 36.0-48.0 [facility] LakewayVqocpprNCIYDWFOEN5868-41-88 13:03:00 Test Item Value Reference Range Interpretation Comments WBC (test code = WBC) 6.5 3.7-10.4 [facility] LakewayWsejmoiNNRPPQOUOH6696-99-45 13:03:00 Test Item Value Reference Range Interpretation Comments MPV (test code = MPV) 10.2 7.4-10.4 [facility] LakewayEvwbyzbUMOHEBGPHT8461-25-85 13:03:00 Test Item Value Reference Range Interpretation Comments Hgb (test code = Hgb) 12.3 12.0-16.0 [facility]2016-01-21 13:03:00 Test Item Value Reference Range Interpretation Comments Magnesium Lvl (test code = Magnesium 1.9 1.8-2.4 Lvl) [facility]2016-01-21 13:03:00 Test Item Value Reference Range Interpretation Comments eGFR (test code = eGFR) 127 [facility]2016-01-21 13:03:00 Test Item Value Reference Range Interpretation Comments Creatinine Lvl (test code = Creatinine 0.60 0.50-1.40 Lvl) [facility]2016-01-21 13:03:00 Test Item Value Reference Range Interpretation Comments Glucose Lvl (test code = Glucose Lvl) 82 70-99 [facility]2016-01-21 13:03:00 Test Item Value Reference Range Interpretation Comments BUN (test code = BUN) 7 7-22 [facility]2016-01-21 13:03:00 Test Item Value Reference Range Interpretation Comments Potassium Lvl (test code = Potassium 4.1 3.5-5.1 Lvl) [facility]2016-01-21 13:03:00 Test Item Value Reference Range Interpretation Comments Sodium Lvl (test code = Sodium Lvl) 141 135-145 [facility]2016-01-21 13:03:00 Test Item Value Reference Range Interpretation Comments Chloride Lvl (test code = Chloride Lvl) 108 95-109 [facility]2016-01-21 13:03:00 Test Item Value Reference Range Interpretation Comments CO2 (test code = CO2) 20 24-32 [facility]2016-01-21 13:03:00 Test Item Value Reference Range Interpretation Comments Calcium Lvl (test code = Calcium Lvl) 8.9 8.5-10.5 [facility]2016-01-21 13:03:00 Test Item Value Reference Range Interpretation Comments AGAP (test code = AGAP) 17.1 10.0-20.0 [facility] LakewayLbiovhyLKKYCRYJMW0099-13-09 13:03:00 Test Item Value Reference Range Interpretation Comments Lymphocytes # (test code = Lymphocytes 2.3 1.0-5.5 #) [facility] LakewayMytuemdSCWLQFJDUH0284-45-39 13:03:00 Test Item Value Reference Range Interpretation Comments Basophils (test code = 1.0 See_Comment [Aut omated message] The Basophils) system which ge nerated this result tra nsmitted reference range : <=1.0. The reference r kat was not used to int erpret this result as normal/abnormal . [facility] LakewayFjenwlpLYDLUOQETB2406-80-99 13:03:00 Test Item Value Reference Range Interpretation Comments Segs-Bands # (test code = Segs-Bands #) 3.3 1.5-8.1 [facility] LakewayCnprwxwIZPJYJMSTR2987-53-33 13:03:00 Test Item Value Reference Range Interpretation Comments Eosinophils (test code = 2.5 See_Comment [A utomated message] The Eosinophils) system which ge nerated this result tra nsmitted reference range : <=4.0. The reference r kat was not used to int erpret this result as normal/abnormal . [facility] LakewayFjcedspGZUQZDMEPI4436-48-49 13:03:00 Test Item Value Reference Range Interpretation Comments Eosinophils # (test code 0.2 See_Comment [A utomated message] The = Eosinophils #) system whic h generated this result tra nsmitted reference range : <=0.5. The reference r kat was not used to int erpret this result as normal/abnormal . [facility] LakewayMarsbltNYSUJYBTLQ6713-96-66 13:03:00 Test Item Value Reference Range Interpretation Comments Monocytes # (test code 0.7 See_Comment [Aut omated message] The = Monocytes #) system which generated this result tra nsmitted reference range : <=0.8. The reference r kat was not used to int erpret this result as normal/abnormal . [facility] LakewayJvjavsmWBNXOCQOTX5521-79-19 13:03:00 Test Item Value Reference Range Interpretation Comments Microcyte (test code = 1+ *ABN*(09/19/15 Microcyte) 7:03 AM) [facility] LakewayXsnhgbvLJHGQPUIBO2255-49-10 13:03:00 Test Item Value Reference Range Interpretation Comments Basophils # (test code 0.1 See_Comment [Aut omated message] The = Basophils #) system which generated this result tra nsmitted reference range : <=0.2. The reference r kat was not used to int erpret this result as normal/abnormal . [facility] LakewayTfpacclFWOIHMOWGZ3380-28-26 13:03:00 Test Item Value Reference Range Interpretation Comments Monocytes (test code = Monocytes) 10.4 2.0-12.0 [facility] LakewayDymcjzhONIVCBWWQD7751-31-79 13:03:00 Test Item Value Reference Range Interpretation Comments Lymphocytes (test code = Lymphocytes) 35.3 20.0-40.0 [facility] LakewayBtuejvgQVQWZBUVJV7128-79-76 13:03:00 Test Item Value Reference Range Interpretation Comments Segs (test code = Segs) 50.8 45.0-75.0 [facility] LakewayHkocntjWWKUKNXPUX2194-21-67 13:03:00 Test Item Value Reference Range Interpretation Comments MCHC (test code = MCHC) 30.5 32.0-36.0 [facility] LakewayDrlelsfGFRYUJXZYJ9680-43-97 13:03:00 Test Item Value Reference Range Interpretation Comments Platelet (test code = Platelet) 175 133-450 [facility] LakewayTjdxweqYUHQYPWQUW3219-51-96 13:03:00 Test Item Value Reference Range Interpretation Comments RDW (test code = RDW) 17.1 11.5-14.5 [facility] LakewayKifzuonMDCFGMBOUD2503-71-13 13:03:00 Test Item Value Reference Range Interpretation Comments MCV (test code = MCV) 78.4 80.0-98.0 [facility] LakewayNkntlwpWODKQGPJJC3876-98-06 13:03:00 Test Item Value Reference Range Interpretation Comments MCH (test code = MCH) 24.0 pg 27.0-31.0 [facility] LakewayAldzqfiBPNAAOBFGJ6265-29-20 13:03:00 Test Item Value Reference Range Interpretation Comments RBC (test code = RBC) 5.15 4.20-5.40 [facility] LakewayTkqucnzHCUIIXZKNO9633-09-51 13:03:00 Test Item Value Reference Range Interpretation Comments Hct (test code = Hct) 40.4 36.0-48.0 [facility] LakewayClkrlpwMWCLQJIVOS4546-93-33 13:03:00 Test Item Value Reference Range Interpretation Comments WBC (test code = WBC) 6.5 3.7-10.4 [facility] LakewayRxnbwjsWYMCLIDAWI6429-42-89 13:03:00 Test Item Value Reference Range Interpretation Comments MPV (test code = MPV) 10.2 7.4-10.4 [facility] LakewayMuexjiiROIKAYZKAD3305-82-55 13:03:00 Test Item Value Reference Range Interpretation Comments Hgb (test code = Hgb) 12.3 12.0-16.0 [facility]2016-01-21 13:03:00 Test Item Value Reference Range Interpretation Comments Magnesium Lvl (test code = Magnesium 1.9 1.8-2.4 Lvl) [facility]2016-01-21 13:03:00 Test Item Value Reference Range Interpretation Comments eGFR (test code = eGFR) 127 [facility]2016-01-21 13:03:00 Test Item Value Reference Range Interpretation Comments Creatinine Lvl (test code = Creatinine 0.60 0.50-1.40 Lvl) [facility]2016-01-21 13:03:00 Test Item Value Reference Range Interpretation Comments Glucose Lvl (test code = Glucose Lvl) 82 70-99 [facility]2016-01-21 13:03:00 Test Item Value Reference Range Interpretation Comments BUN (test code = BUN) 7 7-22 [facility]2016-01-21 13:03:00 Test Item Value Reference Range Interpretation Comments Potassium Lvl (test code = Potassium 4.1 3.5-5.1 Lvl) [facility]2016-01-21 13:03:00 Test Item Value Reference Range Interpretation Comments Sodium Lvl (test code = Sodium Lvl) 141 135-145 [facility]2016-01-21 13:03:00 Test Item Value Reference Range Interpretation Comments Chloride Lvl (test code = Chloride Lvl) 108 95-109 [facility]2016-01-21 13:03:00 Test Item Value Reference Range Interpretation Comments CO2 (test code = CO2) 20 24-32 [facility]2016-01-21 13:03:00 Test Item Value Reference Range Interpretation Comments Calcium Lvl (test code = Calcium Lvl) 8.9 8.5-10.5 [facility]2016-01-21 13:03:00 Test Item Value Reference Range Interpretation Comments AGAP (test code = AGAP) 17.1 10.0-20.0 [facility] LakewayLhsnnxcOIKJMLYVSD5435-79-68 13:03:00 Test Item Value Reference Range Interpretation Comments Lymphocytes # (test code = Lymphocytes 2.3 1.0-5.5 #) [facility] LakewayYdrotnhVOJQTSUZWA8117-08-10 13:03:00 Test Item Value Reference Range Interpretation Comments Basophils (test code = 1.0 See_Comment [Aut omated message] The Basophils) system which ge nerated this result tra nsmitted reference range : <=1.0. The reference r kat was not used to int erpret this result as normal/abnormal . [facility] LakewayXlksbkgBWPESFGUAK2890-31-67 13:03:00 Test Item Value Reference Range Interpretation Comments Segs-Bands # (test code = Segs-Bands #) 3.3 1.5-8.1 [facility] LakewayYawvxdySOJYXASWNW0782-31-91 13:03:00 Test Item Value Reference Range Interpretation Comments Eosinophils (test code = 2.5 See_Comment [A utomated message] The Eosinophils) system which ge nerated this result tra nsmitted reference range : <=4.0. The reference r kat was not used to int erpret this result as normal/abnormal . [facility] LakewayFatacpkSUIVRENGTY3332-95-70 13:03:00 Test Item Value Reference Range Interpretation Comments Eosinophils # (test code 0.2 See_Comment [A utomated message] The = Eosinophils #) system whic h generated this result tra nsmitted reference range : <=0.5. The reference r kat was not used to int erpret this result as normal/abnormal . [facility] LakewayPbopviyYNHVSWZRIF2246-36-67 13:03:00 Test Item Value Reference Range Interpretation Comments Monocytes # (test code 0.7 See_Comment [Aut omated message] The = Monocytes #) system which generated this result tra nsmitted reference range : <=0.8. The reference r kat was not used to int erpret this result as normal/abnormal . [facility] LakewayEhwbxggKLUKJZRNGR8681-49-28 13:03:00 Test Item Value Reference Range Interpretation Comments Microcyte (test code = 1+ *ABN*(09/19/15 Microcyte) 7:03 AM) [facility] LakewayVbqyoazMJYTTJDADJ5972-35-15 13:03:00 Test Item Value Reference Range Interpretation Comments Basophils # (test code 0.1 See_Comment [Aut omated message] The = Basophils #) system which generated this result tra nsmitted reference range : <=0.2. The reference r kat was not used to int erpret this result as normal/abnormal . [facility] LakewayFbgkjwmVSHMOTXUNT6415-86-29 13:03:00 Test Item Value Reference Range Interpretation Comments Monocytes (test code = Monocytes) 10.4 2.0-12.0 [facility] LakewayNkgzuruZCNOMQODIR1081-97-09 13:03:00 Test Item Value Reference Range Interpretation Comments Lymphocytes (test code = Lymphocytes) 35.3 20.0-40.0 [facility] LakewayDirworfYSHGHQYASL1818-85-79 13:03:00 Test Item Value Reference Range Interpretation Comments Segs (test code = Segs) 50.8 45.0-75.0 [facility] LakewayKlypketMQXWDYSWGK6697-23-37 13:03:00 Test Item Value Reference Range Interpretation Comments MCHC (test code = MCHC) 30.5 32.0-36.0 [facility] LakewayNbafyavQDHBDTSEZJ6875-35-21 13:03:00 Test Item Value Reference Range Interpretation Comments Platelet (test code = Platelet) 175 133-450 [facility] LakewayNpxfafyHPAEDRFCWA6208-17-95 13:03:00 Test Item Value Reference Range Interpretation Comments RDW (test code = RDW) 17.1 11.5-14.5 [facility] LakewayEfvoglgSCJGIYGFNK5567-79-71 13:03:00 Test Item Value Reference Range Interpretation Comments MCV (test code = MCV) 78.4 80.0-98.0 [facility] LakewayBywtyedGVMDYHLFFD5905-08-60 13:03:00 Test Item Value Reference Range Interpretation Comments MCH (test code = MCH) 24.0 pg 27.0-31.0 [facility] LakewayPmsohmyEIJDQURAXC9033-94-70 13:03:00 Test Item Value Reference Range Interpretation Comments RBC (test code = RBC) 5.15 4.20-5.40 [facility] LakewayWtfjnqbNIOCMQQCPG3212-81-32 13:03:00 Test Item Value Reference Range Interpretation Comments Hct (test code = Hct) 40.4 36.0-48.0 [facility] LakewayGqnjjivHLNXBGHIRS4024-33-85 13:03:00 Test Item Value Reference Range Interpretation Comments WBC (test code = WBC) 6.5 3.7-10.4 [facility] LakewayJusfabzYVPNCFGZRE9905-09-86 13:03:00 Test Item Value Reference Range Interpretation Comments MPV (test code = MPV) 10.2 7.4-10.4 [facility] LakewayNmzlubmPSQXNXIOPY5300-85-92 13:03:00 Test Item Value Reference Range Interpretation Comments Hgb (test code = Hgb) 12.3 12.0-16.0 [facility]2016-01-21 13:03:00 Test Item Value Reference Range Interpretation Comments Magnesium Lvl (test code = Magnesium 1.9 1.8-2.4 Lvl) [facility]2016-01-21 13:03:00 Test Item Value Reference Range Interpretation Comments eGFR (test code = eGFR) 127 [facility]2016-01-21 13:03:00 Test Item Value Reference Range Interpretation Comments Creatinine Lvl (test code = Creatinine 0.60 0.50-1.40 Lvl) [facility]2016-01-21 13:03:00 Test Item Value Reference Range Interpretation Comments Glucose Lvl (test code = Glucose Lvl) 82 70-99 [facility]2016-01-21 13:03:00 Test Item Value Reference Range Interpretation Comments BUN (test code = BUN) 7 7-22 [facility]2016-01-21 13:03:00 Test Item Value Reference Range Interpretation Comments Potassium Lvl (test code = Potassium 4.1 3.5-5.1 Lvl) [facility]2016-01-21 13:03:00 Test Item Value Reference Range Interpretation Comments Sodium Lvl (test code = Sodium Lvl) 141 135-145 [facility]2016-01-21 13:03:00 Test Item Value Reference Range Interpretation Comments Chloride Lvl (test code = Chloride Lvl) 108 95-109 [facility]2016-01-21 13:03:00 Test Item Value Reference Range Interpretation Comments CO2 (test code = CO2) 20 24-32 [facility]2016-01-21 13:03:00 Test Item Value Reference Range Interpretation Comments Calcium Lvl (test code = Calcium Lvl) 8.9 8.5-10.5 [facility]2016-01-21 13:03:00 Test Item Value Reference Range Interpretation Comments AGAP (test code = AGAP) 17.1 10.0-20.0 [facility] LakewayNxdjnmxEWZSHVSHEO6767-69-25 13:03:00 Test Item Value Reference Range Interpretation Comments Lymphocytes # (test code = Lymphocytes 2.3 1.0-5.5 #) [facility] LakewayRodvomkPLZIWGIAIG5823-43-21 13:03:00 Test Item Value Reference Range Interpretation Comments Basophils (test code = 1.0 See_Comment [Aut omated message] The Basophils) system which ge nerated this result tra nsmitted reference range : <=1.0. The reference r kat was not used to int erpret this result as normal/abnormal . [facility] LakewayHlarttdDZRASBXHCH8163-94-47 13:03:00 Test Item Value Reference Range Interpretation Comments Segs-Bands # (test code = Segs-Bands #) 3.3 1.5-8.1 [facility] LakewayGlcwgcgQWEFRBRZYD4168-34-73 13:03:00 Test Item Value Reference Range Interpretation Comments Eosinophils (test code = 2.5 See_Comment [A utomated message] The Eosinophils) system which ge nerated this result tra nsmitted reference range : <=4.0. The reference r kat was not used to int erpret this result as normal/abnormal . [facility] LakewayIxmwvugDVIFHHUKRF4825-46-43 13:03:00 Test Item Value Reference Range Interpretation Comments Eosinophils # (test code 0.2 See_Comment [A utomated message] The = Eosinophils #) system whic h generated this result tra nsmitted reference range : <=0.5. The reference r kat was not used to int erpret this result as normal/abnormal . [facility] LakewayHvyiylvNVKGIEWSOI2884-65-56 13:03:00 Test Item Value Reference Range Interpretation Comments Monocytes # (test code 0.7 See_Comment [Aut omated message] The = Monocytes #) system which generated this result tra nsmitted reference range : <=0.8. The reference r kat was not used to int erpret this result as normal/abnormal . [facility] LakewayWhvwvhxVQFXIWKGHN6652-76-17 13:03:00 Test Item Value Reference Range Interpretation Comments Microcyte (test code = 1+ *ABN*(09/19/15 Microcyte) 7:03 AM) [facility] LakewayWubbwvhCUNVPUHXSC1582-07-15 13:03:00 Test Item Value Reference Range Interpretation Comments Basophils # (test code 0.1 See_Comment [Aut omated message] The = Basophils #) system which generated this result tra nsmitted reference range : <=0.2. The reference r kat was not used to int erpret this result as normal/abnormal . [facility] LakewayHsdhpvcTVLCYHVQGT5130-53-19 13:03:00 Test Item Value Reference Range Interpretation Comments Monocytes (test code = Monocytes) 10.4 2.0-12.0 [facility] LakewayKwccscgZOISDXYUVN4641-29-07 13:03:00 Test Item Value Reference Range Interpretation Comments Lymphocytes (test code = Lymphocytes) 35.3 20.0-40.0 [facility] LakewayBnhlyttNGKZJQHXHE0447-31-11 13:03:00 Test Item Value Reference Range Interpretation Comments Segs (test code = Segs) 50.8 45.0-75.0 [facility] LakewayMocbsbzMFGEMCXPVN7682-30-97 13:03:00 Test Item Value Reference Range Interpretation Comments MCHC (test code = MCHC) 30.5 32.0-36.0 [facility] LakewaySbfinmyTKWXKRJFGW2382-85-49 13:03:00 Test Item Value Reference Range Interpretation Comments Platelet (test code = Platelet) 175 133-450 [facility] LakewayFgswrzaZZLKNKWLBK9579-07-73 13:03:00 Test Item Value Reference Range Interpretation Comments RDW (test code = RDW) 17.1 11.5-14.5 [facility] LakewayJpaelxxQXGFOSEKFQ7097-71-23 13:03:00 Test Item Value Reference Range Interpretation Comments MCV (test code = MCV) 78.4 80.0-98.0 [facility] LakewayUqaizsdHCJMDMVKUR1204-93-36 13:03:00 Test Item Value Reference Range Interpretation Comments MCH (test code = MCH) 24.0 pg 27.0-31.0 [facility] LakewayUjzwmhtYGPEJHFTNA2678-15-98 13:03:00 Test Item Value Reference Range Interpretation Comments RBC (test code = RBC) 5.15 4.20-5.40 [facility] LakewayLovohgoDUKDSLQXNK2577-32-68 13:03:00 Test Item Value Reference Range Interpretation Comments Hct (test code = Hct) 40.4 36.0-48.0 [facility] LakewayVvzktspJAMSFWSNCJ6579-58-74 13:03:00 Test Item Value Reference Range Interpretation Comments WBC (test code = WBC) 6.5 3.7-10.4 [facility] LakewayRackgzyTQTWBEYTYD5035-51-15 13:03:00 Test Item Value Reference Range Interpretation Comments MPV (test code = MPV) 10.2 7.4-10.4 [facility] LakewayVrcwqbfZFXTOSAGGL5378-16-28 13:03:00 Test Item Value Reference Range Interpretation Comments Hgb (test code = Hgb) 12.3 12.0-16.0 [facility]2016-01-21 13:03:00 Test Item Value Reference Range Interpretation Comments Magnesium Lvl (test code = Magnesium 1.9 1.8-2.4 Lvl) [facility]2016-01-21 13:03:00 Test Item Value Reference Range Interpretation Comments eGFR (test code = eGFR) 127 [facility]2016-01-21 13:03:00 Test Item Value Reference Range Interpretation Comments Creatinine Lvl (test code = Creatinine 0.60 0.50-1.40 Lvl) [facility]2016-01-21 13:03:00 Test Item Value Reference Range Interpretation Comments Glucose Lvl (test code = Glucose Lvl) 82 70-99 [facility]2016-01-21 13:03:00 Test Item Value Reference Range Interpretation Comments BUN (test code = BUN) 7 7-22 [facility]2016-01-21 13:03:00 Test Item Value Reference Range Interpretation Comments Potassium Lvl (test code = Potassium 4.1 3.5-5.1 Lvl) [facility]2016-01-21 13:03:00 Test Item Value Reference Range Interpretation Comments Sodium Lvl (test code = Sodium Lvl) 141 135-145 [facility]2016-01-21 13:03:00 Test Item Value Reference Range Interpretation Comments Chloride Lvl (test code = Chloride Lvl) 108 95-109 [facility]2016-01-21 13:03:00 Test Item Value Reference Range Interpretation Comments CO2 (test code = CO2) 20 24-32 [facility]2016-01-21 13:03:00 Test Item Value Reference Range Interpretation Comments Calcium Lvl (test code = Calcium Lvl) 8.9 8.5-10.5 [facility]2016-01-21 13:03:00 Test Item Value Reference Range Interpretation Comments AGAP (test code = AGAP) 17.1 10.0-20.0 [facility] LakewayIxsumwvFJGLGKEKNP3989-08-22 13:03:00 Test Item Value Reference Range Interpretation Comments Lymphocytes # (test code = Lymphocytes 2.3 1.0-5.5 #) [facility] LakewayWofwgizTYORLXCEQS7563-14-65 13:03:00 Test Item Value Reference Range Interpretation Comments Basophils (test code = 1.0 See_Comment [Aut omated message] The Basophils) system which ge nerated this result tra nsmitted reference range : <=1.0. The reference r kat was not used to int erpret this result as normal/abnormal . [facility] LakewayQrrbgfgNGMRWIDWEO9645-93-83 13:03:00 Test Item Value Reference Range Interpretation Comments Segs-Bands # (test code = Segs-Bands #) 3.3 1.5-8.1 [facility] LakewayCdgqkxzRROOHGXESN4762-43-38 13:03:00 Test Item Value Reference Range Interpretation Comments Eosinophils (test code = 2.5 See_Comment [A utomated message] The Eosinophils) system which ge nerated this result tra nsmitted reference range : <=4.0. The reference r kat was not used to int erpret this result as normal/abnormal . [facility] LakewayTrlcqcjAFZVZHCGBS0090-58-09 13:03:00 Test Item Value Reference Range Interpretation Comments Eosinophils # (test code 0.2 See_Comment [A utomated message] The = Eosinophils #) system whic h generated this result tra nsmitted reference range : <=0.5. The reference r kat was not used to int erpret this result as normal/abnormal . [facility] LakewayHfbrvcfBNYEJTJSWO8801-42-74 13:03:00 Test Item Value Reference Range Interpretation Comments Monocytes # (test code 0.7 See_Comment [Aut omated message] The = Monocytes #) system which generated this result tra nsmitted reference range : <=0.8. The reference r kat was not used to int erpret this result as normal/abnormal . [facility] LakewayAqnslgfAKKGCKXXSV9586-59-30 13:03:00 Test Item Value Reference Range Interpretation Comments Microcyte (test code = 1+ *ABN*(09/19/15 Microcyte) 7:03 AM) [facility] LakewayBzdiiwfSSNUTAZVSP4177-53-82 13:03:00 Test Item Value Reference Range Interpretation Comments Basophils # (test code 0.1 See_Comment [Aut omated message] The = Basophils #) system which generated this result tra nsmitted reference range : <=0.2. The reference r kat was not used to int erpret this result as normal/abnormal . [facility] LakewayXbaewudVYQDVNHXAC0999-07-05 13:03:00 Test Item Value Reference Range Interpretation Comments Monocytes (test code = Monocytes) 10.4 2.0-12.0 [facility] LakewayGkwoajjQKXKYWRDXT6029-49-88 13:03:00 Test Item Value Reference Range Interpretation Comments Lymphocytes (test code = Lymphocytes) 35.3 20.0-40.0 [facility] LakewayMlyjclmOYWIUVFISX2619-03-91 13:03:00 Test Item Value Reference Range Interpretation Comments Segs (test code = Segs) 50.8 45.0-75.0 [facility] LakewayGaexuozSCHDVZEZGH6889-38-21 13:03:00 Test Item Value Reference Range Interpretation Comments MCHC (test code = MCHC) 30.5 32.0-36.0 [facility] LakewayChorwyzWYEQVKLEHM1378-53-91 13:03:00 Test Item Value Reference Range Interpretation Comments Platelet (test code = Platelet) 175 133-450 [facility] LakewayQcsumgiJWULUNKWJZ6010-64-29 13:03:00 Test Item Value Reference Range Interpretation Comments RDW (test code = RDW) 17.1 11.5-14.5 [facility] LakewayJyorcwhKTPADREDCW6048-69-53 13:03:00 Test Item Value Reference Range Interpretation Comments MCV (test code = MCV) 78.4 80.0-98.0 [facility] LakewayJjygbelNPSEWMRKCO4172-51-13 13:03:00 Test Item Value Reference Range Interpretation Comments MCH (test code = MCH) 24.0 pg 27.0-31.0 [facility] LakewayDioqtouOEIEPYWWRR9493-23-31 13:03:00 Test Item Value Reference Range Interpretation Comments RBC (test code = RBC) 5.15 4.20-5.40 [facility] LakewayKgtkyyzVYMPKLCIVT3760-16-07 13:03:00 Test Item Value Reference Range Interpretation Comments Hct (test code = Hct) 40.4 36.0-48.0 [facility] LakewaySknogguFKLRVLUBCF7742-87-93 13:03:00 Test Item Value Reference Range Interpretation Comments WBC (test code = WBC) 6.5 3.7-10.4 [facility] LakewayZbmcvufPSEAWGNFXQ6397-64-60 13:03:00 Test Item Value Reference Range Interpretation Comments MPV (test code = MPV) 10.2 7.4-10.4 [facility] LakewayEirahupGUTNKCSFLL9633-34-78 13:03:00 Test Item Value Reference Range Interpretation Comments Hgb (test code = Hgb) 12.3 12.0-16.0 [facility]2016-01-20 12:40:00 Test Item Value Reference Range Interpretation Comments eGFR (test code = eGFR) 129 [facility]2016-01-20 12:40:00 Test Item Value Reference Range Interpretation Comments Creatinine Lvl (test code = Creatinine 0.58 0.50-1.40 Lvl) [facility]2016-01-20 12:40:00 Test Item Value Reference Range Interpretation Comments CO2 (test code = CO2) 23 24-32 [facility]2016-01-20 12:40:00 Test Item Value Reference Range Interpretation Comments Chloride Lvl (test code = Chloride Lvl) 109 95-109 [facility]2016-01-20 12:40:00 Test Item Value Reference Range Interpretation Comments Calcium Lvl (test code = Calcium Lvl) 9.0 8.5-10.5 [facility]2016-01-20 12:40:00 Test Item Value Reference Range Interpretation Comments Potassium Lvl (test code = Potassium 3.7 3.5-5.1 Lvl) [facility]2016-01-20 12:40:00 Test Item Value Reference Range Interpretation Comments AGAP (test code = AGAP) 12.7 10.0-20.0 [facility]2016-01-20 12:40:00 Test Item Value Reference Range Interpretation Comments BUN (test code = BUN) 9 7-22 [facility]2016-01-20 12:40:00 Test Item Value Reference Range Interpretation Comments Sodium Lvl (test code = Sodium Lvl) 141 135-145 [facility]2016-01-20 12:40:00 Test Item Value Reference Range Interpretation Comments Glucose Lvl (test code = Glucose Lvl) 87 70-99 [facility]2016-01-20 12:40:00 Test Item Value Reference Range Interpretation Comments eGFR (test code = eGFR) 129 [facility]2016-01-20 12:40:00 Test Item Value Reference Range Interpretation Comments Creatinine Lvl (test code = Creatinine 0.58 0.50-1.40 Lvl) [facility]2016-01-20 12:40:00 Test Item Value Reference Range Interpretation Comments CO2 (test code = CO2) 23 - [facility]2016-01-20 12:40:00 Test Item Value Reference Range Interpretation Comments Chloride Lvl (test code = Chloride Lvl) 109 95-109 [facility]2016-01-20 12:40:00 Test Item Value Reference Range Interpretation Comments Calcium Lvl (test code = Calcium Lvl) 9.0 8.5-10.5 [facility]2016-01-20 12:40:00 Test Item Value Reference Range Interpretation Comments Potassium Lvl (test code = Potassium 3.7 3.5-5.1 Lvl) [facility]2016-01-20 12:40:00 Test Item Value Reference Range Interpretation Comments AGAP (test code = AGAP) 12.7 10.0-20.0 [facility]2016-01-20 12:40:00 Test Item Value Reference Range Interpretation Comments BUN (test code = BUN) 9 7-22 [facility]2016-01-20 12:40:00 Test Item Value Reference Range Interpretation Comments Sodium Lvl (test code = Sodium Lvl) 141 135-145 [facility]2016-01-20 12:40:00 Test Item Value Reference Range Interpretation Comments Glucose Lvl (test code = Glucose Lvl) 87 70-99 [facility]2016-01-20 12:40:00 Test Item Value Reference Range Interpretation Comments eGFR (test code = eGFR) 129 [facility]2016-01-20 12:40:00 Test Item Value Reference Range Interpretation Comments Creatinine Lvl (test code = Creatinine 0.58 0.50-1.40 Lvl) [facility]2016-01-20 12:40:00 Test Item Value Reference Range Interpretation Comments CO2 (test code = CO2) 23 - [facility]2016-01-20 12:40:00 Test Item Value Reference Range Interpretation Comments Chloride Lvl (test code = Chloride Lvl) 109 95-109 [facility]2016-01-20 12:40:00 Test Item Value Reference Range Interpretation Comments Calcium Lvl (test code = Calcium Lvl) 9.0 8.5-10.5 [facility]2016-01-20 12:40:00 Test Item Value Reference Range Interpretation Comments Potassium Lvl (test code = Potassium 3.7 3.5-5.1 Lvl) [facility]2016-01-20 12:40:00 Test Item Value Reference Range Interpretation Comments AGAP (test code = AGAP) 12.7 10.0-20.0 [facility]2016-01-20 12:40:00 Test Item Value Reference Range Interpretation Comments BUN (test code = BUN) 9 7-22 [facility]2016-01-20 12:40:00 Test Item Value Reference Range Interpretation Comments Sodium Lvl (test code = Sodium Lvl) 141 135-145 [facility]2016-01-20 12:40:00 Test Item Value Reference Range Interpretation Comments Glucose Lvl (test code = Glucose Lvl) 87 70-99 [facility]2016-01-20 12:40:00 Test Item Value Reference Range Interpretation Comments eGFR (test code = eGFR) 129 [facility]2016-01-20 12:40:00 Test Item Value Reference Range Interpretation Comments Creatinine Lvl (test code = Creatinine 0.58 0.50-1.40 Lvl) [facility]2016-01-20 12:40:00 Test Item Value Reference Range Interpretation Comments CO2 (test code = CO2) 23 24-32 [facility]2016-01-20 12:40:00 Test Item Value Reference Range Interpretation Comments Chloride Lvl (test code = Chloride Lvl) 109 95-109 [facility]2016-01-20 12:40:00 Test Item Value Reference Range Interpretation Comments Calcium Lvl (test code = Calcium Lvl) 9.0 8.5-10.5 [facility]2016-01-20 12:40:00 Test Item Value Reference Range Interpretation Comments Potassium Lvl (test code = Potassium 3.7 3.5-5.1 Lvl) [facility]2016-01-20 12:40:00 Test Item Value Reference Range Interpretation Comments AGAP (test code = AGAP) 12.7 10.0-20.0 [facility]2016-01-20 12:40:00 Test Item Value Reference Range Interpretation Comments BUN (test code = BUN) 9 - [facility]2016-01-20 12:40:00 Test Item Value Reference Range Interpretation Comments Sodium Lvl (test code = Sodium Lvl) 141 135-145 [facility]2016-01-20 12:40:00 Test Item Value Reference Range Interpretation Comments Glucose Lvl (test code = Glucose Lvl) 87 70-99 [facility]2016-01-20 12:40:00 Test Item Value Reference Range Interpretation Comments eGFR (test code = eGFR) 129 [facility]2016-01-20 12:40:00 Test Item Value Reference Range Interpretation Comments Creatinine Lvl (test code = Creatinine 0.58 0.50-1.40 Lvl) [facility]2016-01-20 12:40:00 Test Item Value Reference Range Interpretation Comments CO2 (test code = CO2) 23 24-32 [facility]2016-01-20 12:40:00 Test Item Value Reference Range Interpretation Comments Chloride Lvl (test code = Chloride Lvl) 109 95-109 [facility]2016-01-20 12:40:00 Test Item Value Reference Range Interpretation Comments Calcium Lvl (test code = Calcium Lvl) 9.0 8.5-10.5 [facility]2016-01-20 12:40:00 Test Item Value Reference Range Interpretation Comments Potassium Lvl (test code = Potassium 3.7 3.5-5.1 Lvl) [facility]2016-01-20 12:40:00 Test Item Value Reference Range Interpretation Comments AGAP (test code = AGAP) 12.7 10.0-20.0 [facility]2016-01-20 12:40:00 Test Item Value Reference Range Interpretation Comments BUN (test code = BUN) 9 - [facility]2016-01-20 12:40:00 Test Item Value Reference Range Interpretation Comments Sodium Lvl (test code = Sodium Lvl) 141 135-145 [facility]2016-01-20 12:40:00 Test Item Value Reference Range Interpretation Comments Glucose Lvl (test code = Glucose Lvl) 87 70-99 [facility]2016-01-20 12:40:00 Test Item Value Reference Range Interpretation Comments eGFR (test code = eGFR) 129 [facility]2016-01-20 12:40:00 Test Item Value Reference Range Interpretation Comments Creatinine Lvl (test code = Creatinine 0.58 0.50-1.40 Lvl) [facility]2016-01-20 12:40:00 Test Item Value Reference Range Interpretation Comments CO2 (test code = CO2) 23 24-32 [facility]2016-01-20 12:40:00 Test Item Value Reference Range Interpretation Comments Chloride Lvl (test code = Chloride Lvl) 109 95-109 [facility]2016-01-20 12:40:00 Test Item Value Reference Range Interpretation Comments Calcium Lvl (test code = Calcium Lvl) 9.0 8.5-10.5 [facility]2016-01-20 12:40:00 Test Item Value Reference Range Interpretation Comments Potassium Lvl (test code = Potassium 3.7 3.5-5.1 Lvl) [facility]2016-01-20 12:40:00 Test Item Value Reference Range Interpretation Comments AGAP (test code = AGAP) 12.7 10.0-20.0 [facility]2016-01-20 12:40:00 Test Item Value Reference Range Interpretation Comments BUN (test code = BUN) 9 7-22 [facility]2016-01-20 12:40:00 Test Item Value Reference Range Interpretation Comments Sodium Lvl (test code = Sodium Lvl) 141 135-145 [facility]2016-01-20 12:40:00 Test Item Value Reference Range Interpretation Comments Glucose Lvl (test code = Glucose Lvl) 87 70-99 [facility]2016-01-20 12:40:00 Test Item Value Reference Range Interpretation Comments eGFR (test code = eGFR) 129 [facility]2016-01-20 12:40:00 Test Item Value Reference Range Interpretation Comments Creatinine Lvl (test code = Creatinine 0.58 0.50-1.40 Lvl) [facility]2016-01-20 12:40:00 Test Item Value Reference Range Interpretation Comments CO2 (test code = CO2) 23 24-32 [facility]2016-01-20 12:40:00 Test Item Value Reference Range Interpretation Comments Chloride Lvl (test code = Chloride Lvl) 109 95-109 [facility]2016-01-20 12:40:00 Test Item Value Reference Range Interpretation Comments Calcium Lvl (test code = Calcium Lvl) 9.0 8.5-10.5 [facility]2016-01-20 12:40:00 Test Item Value Reference Range Interpretation Comments Potassium Lvl (test code = Potassium 3.7 3.5-5.1 Lvl) [facility]2016-01-20 12:40:00 Test Item Value Reference Range Interpretation Comments AGAP (test code = AGAP) 12.7 10.0-20.0 [facility]2016-01-20 12:40:00 Test Item Value Reference Range Interpretation Comments BUN (test code = BUN) 9 7-22 [facility]2016-01-20 12:40:00 Test Item Value Reference Range Interpretation Comments Sodium Lvl (test code = Sodium Lvl) 141 135-145 [facility]2016-01-20 12:40:00 Test Item Value Reference Range Interpretation Comments Glucose Lvl (test code = Glucose Lvl) 87 70-99 [facility]2016-01-20 12:40:00 Test Item Value Reference Range Interpretation Comments eGFR (test code = eGFR) 129 [facility]2016-01-20 12:40:00 Test Item Value Reference Range Interpretation Comments Creatinine Lvl (test code = Creatinine 0.58 0.50-1.40 Lvl) [facility]2016-01-20 12:40:00 Test Item Value Reference Range Interpretation Comments CO2 (test code = CO2) 23 24-32 [facility]2016-01-20 12:40:00 Test Item Value Reference Range Interpretation Comments Chloride Lvl (test code = Chloride Lvl) 109 95-109 [facility]2016-01-20 12:40:00 Test Item Value Reference Range Interpretation Comments Calcium Lvl (test code = Calcium Lvl) 9.0 8.5-10.5 [facility]2016-01-20 12:40:00 Test Item Value Reference Range Interpretation Comments Potassium Lvl (test code = Potassium 3.7 3.5-5.1 Lvl) [facility] [id number] 12:40:00 Test Item Value Reference Range Interpretation Comments AGAP (test code = AGAP) 12.7 10.0-20.0 [facility]2016-01-20 12:40:00 Test Item Value Reference Range Interpretation Comments BUN (test code = BUN) 9 7-22 [facility]2016-01-20 12:40:00 Test Item Value Reference Range Interpretation Comments Sodium Lvl (test code = Sodium Lvl) 141 135-145 [facility]2016-01-20 12:40:00 Test Item Value Reference Range Interpretation Comments Glucose Lvl (test code = Glucose Lvl) 87 70-99 [facility] AND [id number] 05:30:00 Test Item Value Reference Range Interpretation Comments UA Urobilinogen (test code = UA <=1.0 mg/dL 0.1-1.0 Urobilinogen) [facility] AND [id number] 05:30:00 Test Item Value Reference Range Interpretation Comments UA Color (test code = UA Color) Marry [facility] AND [id number] 05:30:00 Test Item Value Reference Range Interpretation Comments UA Bacteria (test code = UA Many /HPF Bacteria) [facility] AND [id number] 05:30:00 Test Item Value Reference Range Interpretation Comments UA Mucus (test code = UA Mucus) Many /LPF [facility] AND [id number] 05:30:00 Test Item Value Reference Range Interpretation Comments UA Leuk Est (test code Large *ABN*(09/17/15 = UA Leuk Est) 11:30 PM) [facility] AND [id number] 05:30:00 Test Item Value Reference Range Interpretation Comments UA Sq Epi (test code = UA Sq Epi) Many /LPF [facility] AND [id number] 05:30:00 Test Item Value Reference Range Interpretation Comments UA Nitrite (test code Negative (09/17/15 11:30 = UA Nitrite) PM) [facility] AND [id number] 05:30:00 Test Item Value Reference Range Interpretation Comments UA WBC (test code = 16 See_Comment [Automa arvind message] The UA WBC) system which ge nerated this result transmit arvind reference range : <=5. The reference range was not used to interpr et this result as mario l/abnormal. [facility] AND [id number] 05:30:00 Test Item Value Reference Range Interpretation Comments UA RBC (test code = 5 See_Comment [Automa arvind message] The UA RBC) system which ge nerated this result transmit arvind reference range : <=2. The reference range was not used to interpr et this result as mario l/abnormal. [facility] AND [id number] 05:30:00 Test Item Value Reference Range Interpretation Comments UA Bili (test code = Negative *NA*(09/17/15 UA Bili) 11:30 PM) [facility] AND [id number] 05:30:00 Test Item Value Reference Range Interpretation Comments UA Blood (test code = Negative (09/17/15 11:30 UA Blood) PM) [facility] AND [id number] 05:30:00 Test Item Value Reference Range Interpretation Comments UA Glucose (test code = UA Negative mg/dL Glucose) [facility] AND [id number] 05:30:00 Test Item Value Reference Range Interpretation Comments UA Ketones (test code = UA Trace mg/dL Ketones) [facility] AND [id number] 05:30:00 Test Item Value Reference Range Interpretation Comments UA Protein (test code = UA Protein) 30 mg/dL [facility] AND [id number] 05:30:00 Test Item Value Reference Range Interpretation Comments UA pH (test code = UA pH) 5.0 5.0-8.0 [facility] AND [id number] 05:30:00 Test Item Value Reference Range Interpretation Comments UA Spec Grav (test code = UA Spec Grav) 1.030 [facility] AND [id number] 05:30:00 Test Item Value Reference Range Interpretation Comments UA Turbidity (test code Marked *ABN*(09/17/15 = UA Turbidity) 11:30 PM) [facility] [id number] 05:30:00 Test Item Value Reference Range Interpretation Comments U Preg (test code = U Negative (09/17/15 11:30 Preg) PM) [facility] AND [id number] 05:30:00 Test Item Value Reference Range Interpretation Comments UA Urobilinogen (test code = UA <=1.0 mg/dL 0.1-1.0 Urobilinogen) [facility] AND [id number] 05:30:00 Test Item Value Reference Range Interpretation Comments UA Color (test code = UA Color) Marry [facility] AND [id number] 05:30:00 Test Item Value Reference Range Interpretation Comments UA Bacteria (test code = UA Many /HPF Bacteria) [facility] AND [id number] 05:30:00 Test Item Value Reference Range Interpretation Comments UA Mucus (test code = UA Mucus) Many /LPF [facility] AND [id number] 05:30:00 Test Item Value Reference Range Interpretation Comments UA Leuk Est (test code Large *ABN*(09/17/15 = UA Leuk Est) 11:30 PM) [facility] AND [id number] 05:30:00 Test Item Value Reference Range Interpretation Comments UA Sq Epi (test code = UA Sq Epi) Many /LPF [facility] AND [id number] 05:30:00 Test Item Value Reference Range Interpretation Comments UA Nitrite (test code Negative (09/17/15 11:30 = UA Nitrite) PM) [facility] AND [id number] 05:30:00 Test Item Value Reference Range Interpretation Comments UA WBC (test code = 16 See_Comment [Automa arvind message] The UA WBC) system which ge nerated this result transmit arvind reference range : <=5. The reference range was not used to interpr et this result as mario l/abnormal. [facility] AND [id number] 05:30:00 Test Item Value Reference Range Interpretation Comments UA RBC (test code = 5 See_Comment [Automa arvind message] The UA RBC) system which ge nerated this result transmit arvind reference range : <=2. The reference range was not used to interpr et this result as mario l/abnormal. [facility] AND [id number] 05:30:00 Test Item Value Reference Range Interpretation Comments UA Bili (test code = Negative *NA*(09/17/15 UA Bili) 11:30 PM) [facility] [id number] 05:30:00 Test Item Value Reference Range Interpretation Comments UA Blood (test code = Negative (09/17/15 11:30 UA Blood) PM) [facility] [id number] 05:30:00 Test Item Value Reference Range Interpretation Comments UA Glucose (test code = UA Negative mg/dL Glucose) [facility] [id number] 05:30:00 Test Item Value Reference Range Interpretation Comments UA Ketones (test code = UA Trace mg/dL Ketones) [facility] [id number] 05:30:00 Test Item Value Reference Range Interpretation Comments UA Protein (test code = UA Protein) 30 mg/dL [facility] [id number] 05:30:00 Test Item Value Reference Range Interpretation Comments UA pH (test code = UA pH) 5.0 5.0-8.[address] [facility] [id number] 05:30:00 Test Item Value Reference Range Interpretation Comments UA Spec Grav (test code = UA Spec Grav) 1.030 [facility] AND [id number] 05:30:00 Test Item Value Reference Range Interpretation Comments UA Turbidity (test code Marked *ABN*(09/17/15 = UA Turbidity) 11:30 PM) [facility] [id number] 05:30:00 Test Item Value Reference Range Interpretation Comments U Preg (test code = U Negative (09/17/15 11:30 Preg) PM) [facility] [id number] 05:30:00 Test Item Value Reference Range Interpretation Comments UA Urobilinogen (test code = UA <=1.0 mg/dL 0.1-1.0 Urobilinogen) [facility] [id number] 05:30:00 Test Item Value Reference Range Interpretation Comments UA Color (test code = UA Color) Marry [facility] [id number] 05:30:00 Test Item Value Reference Range Interpretation Comments UA Bacteria (test code = UA Many /HPF Bacteria) [facility] [id number] 05:30:00 Test Item Value Reference Range Interpretation Comments UA Mucus (test code = UA Mucus) Many /LPF [facility] [id number] 05:30:00 Test Item Value Reference Range Interpretation Comments UA Leuk Est (test code Large *ABN*(09/17/15 = UA Leuk Est) 11:30 PM) [facility] AND [id number] 05:30:00 Test Item Value Reference Range Interpretation Comments UA Sq Epi (test code = UA Sq Epi) Many /LPF [facility] AND [id number] 05:30:00 Test Item Value Reference Range Interpretation Comments UA Nitrite (test code Negative (09/17/15 11:30 = UA Nitrite) PM) [facility] AND [id number] 05:30:00 Test Item Value Reference Range Interpretation Comments UA WBC (test code = 16 See_Comment [Automa arvind message] The UA WBC) system which ge nerated this result transmit arvind reference range : <=5. The reference range was not used to interpr et this result as mario l/abnormal. [facility] AND [id number] 05:30:00 Test Item Value Reference Range Interpretation Comments UA RBC (test code = 5 See_Comment [Automa arvind message] The UA RBC) system which ge nerated this result transmit arvind reference range : <=2. The reference range was not used to interpr et this result as mario l/abnormal. [facility] AND [id number] 05:30:00 Test Item Value Reference Range Interpretation Comments UA Bili (test code = Negative *NA*(09/17/15 UA Bili) 11:30 PM) [facility] AND [id number] 05:30:00 Test Item Value Reference Range Interpretation Comments UA Blood (test code = Negative (09/17/15 11:30 UA Blood) PM) [facility] AND [id number] 05:30:00 Test Item Value Reference Range Interpretation Comments UA Glucose (test code = UA Negative mg/dL Glucose) [facility] AND [id number] 05:30:00 Test Item Value Reference Range Interpretation Comments UA Ketones (test code = UA Trace mg/dL Ketones) [facility] AND [id number] 05:30:00 Test Item Value Reference Range Interpretation Comments UA Protein (test code = UA Protein) 30 mg/dL [facility] AND [id number] 05:30:00 Test Item Value Reference Range Interpretation Comments UA pH (test code = UA pH) 5.0 5.0-8.0 [facility] [id number] 05:30:00 Test Item Value Reference Range Interpretation Comments UA Spec Grav (test code = UA Spec Grav) 1.030 [facility] [id number] 05:30:00 Test Item Value Reference Range Interpretation Comments UA Turbidity (test code Marked *ABN*(09/17/15 = UA Turbidity) 11:30 PM) [facility] [id number] 05:30:00 Test Item Value Reference Range Interpretation Comments U Preg (test code = U Negative (09/17/15 11:30 Preg) PM) [facility] [id number] 05:30:00 Test Item Value Reference Range Interpretation Comments UA Urobilinogen (test code = UA <=1.0 mg/dL 0.1-1.0 Urobilinogen) [facility] [id number] 05:30:00 Test Item Value Reference Range Interpretation Comments UA Color (test code = UA Color) Marry [facility] [id number] 05:30:00 Test Item Value Reference Range Interpretation Comments UA Bacteria (test code = UA Many /HPF Bacteria) [facility] [id number] 05:30:00 Test Item Value Reference Range Interpretation Comments UA Mucus (test code = UA Mucus) Many /LPF [facility] [id number] 05:30:00 Test Item Value Reference Range Interpretation Comments UA Urobilinogen (test code = UA <=1.0 mg/dL 0.1-1.0 Urobilinogen) [facility] [id number] 05:30:00 Test Item Value Reference Range Interpretation Comments UA Color (test code = UA Color) Marry [facility] [id number] 05:30:00 Test Item Value Reference Range Interpretation Comments UA Bacteria (test code = UA Many /HPF Bacteria) [facility] [id number] 05:30:00 Test Item Value Reference Range Interpretation Comments UA Mucus (test code = UA Mucus) Many /LPF [facility] [id number] 05:30:00 Test Item Value Reference Range Interpretation Comments UA Leuk Est (test code Large *ABN*(09/17/15 = UA Leuk Est) 11:30 PM) [facility] AND [id number] 05:30:00 Test Item Value Reference Range Interpretation Comments UA Sq Epi (test code = UA Sq Epi) Many /LPF [facility] AND [id number] 05:30:00 Test Item Value Reference Range Interpretation Comments UA Leuk Est (test code Large *ABN*(09/17/15 = UA Leuk Est) 11:30 PM) [facility] AND [id number] 05:30:00 Test Item Value Reference Range Interpretation Comments UA Nitrite (test code Negative (09/17/15 11:30 = UA Nitrite) PM) [facility] AND [id number] 05:30:00 Test Item Value Reference Range Interpretation Comments UA WBC (test code = 16 See_Comment [Automa arvind message] The UA WBC) system which ge nerated this result transmit arvind reference range : <=5. The reference range was not used to interpr et this result as mario l/abnormal. [facility] AND [id number] 05:30:00 Test Item Value Reference Range Interpretation Comments UA RBC (test code = 5 See_Comment [Automa arvind message] The UA RBC) system which ge nerated this result transmit arvind reference range : <=2. The reference range was not used to interpr et this result as mario l/abnormal. [facility] AND [id number] 05:30:00 Test Item Value Reference Range Interpretation Comments UA Bili (test code = Negative *NA*(09/17/15 UA Bili) 11:30 PM) [facility] AND [id number] 05:30:00 Test Item Value Reference Range Interpretation Comments UA Blood (test code = Negative (09/17/15 11:30 UA Blood) PM) [facility] AND [id number] 05:30:00 Test Item Value Reference Range Interpretation Comments UA Glucose (test code = UA Negative mg/dL Glucose) [facility] AND [id number] 05:30:00 Test Item Value Reference Range Interpretation Comments UA Ketones (test code = UA Trace mg/dL Ketones) [facility] AND [id number] 05:30:00 Test Item Value Reference Range Interpretation Comments UA Protein (test code = UA Protein) 30 mg/dL [facility] AND [id number] 05:30:00 Test Item Value Reference Range Interpretation Comments UA pH (test code = UA pH) 5.0 5.0-8.0 [facility] AND [id number] 05:30:00 Test Item Value Reference Range Interpretation Comments UA Spec Grav (test code = UA Spec Grav) 1.030 [facility] AND [id number] 05:30:00 Test Item Value Reference Range Interpretation Comments UA Sq Epi (test code = UA Sq Epi) Many /LPF [facility] AND [id number] 05:30:00 Test Item Value Reference Range Interpretation Comments UA Turbidity (test code Marked *ABN*(09/17/15 = UA Turbidity) 11:30 PM) [facility] [id number] 05:30:00 Test Item Value Reference Range Interpretation Comments U Preg (test code = U Negative (09/17/15 11:30 Preg) PM) [facility] AND [id number] 05:30:00 Test Item Value Reference Range Interpretation Comments UA Nitrite (test code Negative (09/17/15 11:30 = UA Nitrite) PM) [facility] AND [id number] 05:30:00 Test Item Value Reference Range Interpretation Comments UA WBC (test code = 16 See_Comment [Automa arvind message] The UA WBC) system which ge nerated this result transmit arvind reference range : <=5. The reference range was not used to interpr et this result as mario l/abnormal. [facility] AND [id number] 05:30:00 Test Item Value Reference Range Interpretation Comments UA RBC (test code = 5 See_Comment [Automa arvind message] The UA RBC) system which ge nerated this result transmit arvind reference range : <=2. The reference range was not used to interpr et this result as mario l/abnormal. [facility] AND [id number] 05:30:00 Test Item Value Reference Range Interpretation Comments UA Bili (test code = Negative *NA*(09/17/15 UA Bili) 11:30 PM) [facility] [id number] 05:30:00 Test Item Value Reference Range Interpretation Comments UA Blood (test code = Negative (09/17/15 11:30 UA Blood) PM) [facility] AND [id number] 05:30:00 Test Item Value Reference Range Interpretation Comments UA Glucose (test code = UA Negative mg/dL Glucose) [facility] AND [id number] 05:30:00 Test Item Value Reference Range Interpretation Comments UA Ketones (test code = UA Trace mg/dL Ketones) [facility] AND [id number] 05:30:00 Test Item Value Reference Range Interpretation Comments UA Protein (test code = UA Protein) 30 mg/dL [facility] AND [id number] 05:30:00 Test Item Value Reference Range Interpretation Comments UA pH (test code = UA pH) 5.0 5.0-8.0 [facility] AND [id number] 05:30:00 Test Item Value Reference Range Interpretation Comments UA Spec Grav (test code = UA Spec Grav) 1.030 [facility] AND [id number] 05:30:00 Test Item Value Reference Range Interpretation Comments UA Turbidity (test code Marked *ABN*(09/17/15 = UA Turbidity) 11:30 PM) [facility] [id number] 05:30:00 Test Item Value Reference Range Interpretation Comments U Preg (test code = U Negative (09/17/15 11:30 Preg) PM) [facility] AND [id number] 05:30:00 Test Item Value Reference Range Interpretation Comments UA Urobilinogen (test code = UA <=1.0 mg/dL 0.1-1.0 Urobilinogen) [facility] AND [id number] 05:30:00 Test Item Value Reference Range Interpretation Comments UA Color (test code = UA Color) Marry [facility] AND [id number] 05:30:00 Test Item Value Reference Range Interpretation Comments UA Bacteria (test code = UA Many /HPF Bacteria) [facility] [id number] 05:30:00 Test Item Value Reference Range Interpretation Comments UA Mucus (test code = UA Mucus) Many /LPF [facility] AND [id number] 05:30:00 Test Item Value Reference Range Interpretation Comments UA Leuk Est (test code Large *ABN*(09/17/15 = UA Leuk Est) 11:30 PM) [facility] AND [id number] 05:30:00 Test Item Value Reference Range Interpretation Comments UA Sq Epi (test code = UA Sq Epi) Many /LPF [facility] AND [id number] 05:30:00 Test Item Value Reference Range Interpretation Comments UA Nitrite (test code Negative (09/17/15 11:30 = UA Nitrite) PM) [facility] AND [id number] 05:30:00 Test Item Value Reference Range Interpretation Comments UA WBC (test code = 16 See_Comment [Automa arvind message] The UA WBC) system which ge nerated this result transmit arvind reference range : <=5. The reference range was not used to interpr et this result as mario l/abnormal. [facility] AND [id number] 05:30:00 Test Item Value Reference Range Interpretation Comments UA RBC (test code = 5 See_Comment [Automa arvind message] The UA RBC) system which ge nerated this result transmit arvind reference range : <=2. The reference range was not used to interpr et this result as mario l/abnormal. [facility] AND [id number] 05:30:00 Test Item Value Reference Range Interpretation Comments UA Bili (test code = Negative *NA*(09/17/15 UA Bili) 11:30 PM) [facility] AND [id number] 05:30:00 Test Item Value Reference Range Interpretation Comments UA Blood (test code = Negative (09/17/15 11:30 UA Blood) PM) [facility] AND [id number] 05:30:00 Test Item Value Reference Range Interpretation Comments UA Glucose (test code = UA Negative mg/dL Glucose) [facility] AND [id number] 05:30:00 Test Item Value Reference Range Interpretation Comments UA Ketones (test code = UA Trace mg/dL Ketones) [facility] AND [id number] 05:30:00 Test Item Value Reference Range Interpretation Comments UA Protein (test code = UA Protein) 30 mg/dL [facility] [id number] 05:30:00 Test Item Value Reference Range Interpretation Comments UA pH (test code = UA pH) 5.0 5.0-8.0 [facility] [id number] 05:30:00 Test Item Value Reference Range Interpretation Comments UA Spec Grav (test code = UA Spec Grav) 1.030 [facility] [id number] 05:30:00 Test Item Value Reference Range Interpretation Comments UA Turbidity (test code Marked *ABN*(09/17/15 = UA Turbidity) 11:30 PM) [facility] [id number] 05:30:00 Test Item Value Reference Range Interpretation Comments U Preg (test code = U Negative (09/17/15 11:30 Preg) PM) [facility] [id number] 05:30:00 Test Item Value Reference Range Interpretation Comments UA Urobilinogen (test code = UA <=1.0 mg/dL 0.1-1.0 Urobilinogen) [facility] [id number] 05:30:00 Test Item Value Reference Range Interpretation Comments UA Color (test code = UA Color) [facility] [id number] 05:30:00 Test Item Value Reference Range Interpretation Comments UA Bacteria (test code = UA Many /HPF Bacteria) [facility] [id number] 05:30:00 Test Item Value Reference Range Interpretation Comments UA Mucus (test code = UA Mucus) Many /LPF [facility] [id number] 05:30:00 Test Item Value Reference Range Interpretation Comments UA Leuk Est (test code Large *ABN*(09/17/15 = UA Leuk Est) 11:30 PM) [facility] [id number] 05:30:00 Test Item Value Reference Range Interpretation Comments UA Sq Epi (test code = UA Sq Epi) Many /LPF [facility] [id number] 05:30:00 Test Item Value Reference Range Interpretation Comments UA Nitrite (test code Negative (09/17/15 11:30 = UA Nitrite) PM) [facility] [id number] 05:30:00 Test Item Value Reference Range Interpretation Comments UA WBC (test code = 16 See_Comment [Automa arvind message] The UA WBC) system which ge nerated this result transmit arvind reference range : <=5. The reference range was not used to interpr et this result as mario l/abnormal. [facility] AND [id number] 05:30:00 Test Item Value Reference Range Interpretation Comments UA RBC (test code = 5 See_Comment [Automa arvind message] The UA RBC) system which ge nerated this result transmit arvind reference range : <=2. The reference range was not used to interpr et this result as mario l/abnormal. [facility] AND [id number] 05:30:00 Test Item Value Reference Range Interpretation Comments UA Bili (test code = Negative *NA*(09/17/15 UA Bili) 11:30 PM) [facility] AND [id number] 05:30:00 Test Item Value Reference Range Interpretation Comments UA Blood (test code = Negative (09/17/15 11:30 UA Blood) PM) [facility] AND [id number] 05:30:00 Test Item Value Reference Range Interpretation Comments UA Glucose (test code = UA Negative mg/dL Glucose) [facility] AND [id number] 05:30:00 Test Item Value Reference Range Interpretation Comments UA Ketones (test code = UA Trace mg/dL Ketones) [facility] AND [id number] 05:30:00 Test Item Value Reference Range Interpretation Comments UA Protein (test code = UA Protein) 30 mg/dL [facility] AND [id number] 05:30:00 Test Item Value Reference Range Interpretation Comments UA pH (test code = UA pH) 5.0 5.0-8.0 [facility] AND [id number] 05:30:00 Test Item Value Reference Range Interpretation Comments UA Spec Grav (test code = UA Spec Grav) 1.030 [facility] AND [id number] 05:30:00 Test Item Value Reference Range Interpretation Comments UA Turbidity (test code Marked *ABN*(09/17/15 = UA Turbidity) 11:30 PM) [facility] [id number] 05:30:00 Test Item Value Reference Range Interpretation Comments U Preg (test code = U Negative (09/17/15 11:30 Preg) PM) [facility] [id number] 05:30:00 Test Item Value Reference Range Interpretation Comments UA Urobilinogen (test code = UA <=1.0 mg/dL 0.1-1.0 Urobilinogen) [facility] AND [id number] 05:30:00 Test Item Value Reference Range Interpretation Comments UA Color (test code = UA Color) [facility] AND [id number] 05:30:00 Test Item Value Reference Range Interpretation Comments UA Bacteria (test code = UA Many /HPF Bacteria) [facility] AND [id number] 05:30:00 Test Item Value Reference Range Interpretation Comments UA Mucus (test code = UA Mucus) Many /LPF [facility] AND [id number] 05:30:00 Test Item Value Reference Range Interpretation Comments UA Leuk Est (test code Large *ABN*(09/17/15 = UA Leuk Est) 11:30 PM) [facility] AND [id number] 05:30:00 Test Item Value Reference Range Interpretation Comments UA Sq Epi (test code = UA Sq Epi) Many /LPF [facility] AND [id number] 05:30:00 Test Item Value Reference Range Interpretation Comments UA Nitrite (test code Negative (09/17/15 11:30 = UA Nitrite) PM) [facility] AND [id number] 05:30:00 Test Item Value Reference Range Interpretation Comments UA WBC (test code = 16 See_Comment [Automa arvind message] The UA WBC) system which ge nerated this result transmit arvind reference range : <=5. The reference range was not used to interpr et this result as mario l/abnormal. [facility] AND [id number] 05:30:00 Test Item Value Reference Range Interpretation Comments UA RBC (test code = 5 See_Comment [Automa arvind message] The UA RBC) system which ge nerated this result transmit arvind reference range : <=2. The reference range was not used to interpr et this result as mario l/abnormal. [facility] AND [id number] 05:30:00 Test Item Value Reference Range Interpretation Comments UA Bili (test code = Negative *NA*(09/17/15 UA Bili) 11:30 PM) [facility] AND [id number] 05:30:00 Test Item Value Reference Range Interpretation Comments UA Blood (test code = Negative (09/17/15 11:30 UA Blood) PM) [facility] AND [id number] 05:30:00 Test Item Value Reference Range Interpretation Comments UA Glucose (test code = UA Negative mg/dL Glucose) [facility] AND [id number] 05:30:00 Test Item Value Reference Range Interpretation Comments UA Ketones (test code = UA Trace mg/dL Ketones) [facility] AND [id number] 05:30:00 Test Item Value Reference Range Interpretation Comments UA Protein (test code = UA Protein) 30 mg/dL [facility] AND [id number] 05:30:00 Test Item Value Reference Range Interpretation Comments UA pH (test code = UA pH) 5.0 5.0-8.0 [facility] AND [id number] 05:30:00 Test Item Value Reference Range Interpretation Comments UA Spec Grav (test code = UA Spec Grav) 1.030 [facility] AND [id number] 05:30:00 Test Item Value Reference Range Interpretation Comments UA Turbidity (test code Marked *ABN*(09/17/15 = UA Turbidity) 11:30 PM) [facility] [id number] 05:30:00 Test Item Value Reference Range Interpretation Comments U Preg (test code = U Negative (09/17/15 11:30 Preg) PM) [facility] [id number] 02:01:00 Test Item Value Reference Range Interpretation Comments Lipase Lvl (test code = Lipase Lvl) 196 73-393 [facility] [id number] 02:01:00 Test Item Value Reference Range Interpretation Comments Amylase Lvl (test code = Amylase Lvl) 33 25-115 [facility]frifimFPWAYFYLWNOF5013-95-28 02:01:00 Test Item Value Reference Range Interpretation Comments AGAP (test code = AGAP) 10.7 10.0-20.0 [facility]LcfpoojHLMKUQRQJYQF7146-09-12 02:01:00 Test Item Value Reference Range Interpretation Comments A/G Ratio (test code = A/G Ratio) 1.2 0.7-1.6 [facility]CwjwzyjZCQOGPZEEASE9602-22-07 02:01:00 Test Item Value Reference Range Interpretation Comments Globulin (test code = Globulin) 3.1 2.0-4.0 [facility] HospitalUxnjajkTZFAOHHLDIXV5905-54-55 02:01:00 Test Item Value Reference Range Interpretation Comments B/C Ratio (test code = B/C Ratio) 13 6-25 [facility] HospitalGqyyhbiDLDLSHJXEUVX1413-36-79 02:01:00 Test Item Value Reference Range Interpretation Comments Total Protein (test code = Total 6.9 6.4-8.4 Protein) [facility] Hospi[id number] 02:01:00 Test Item Value Reference Range Interpretation Comments Calcium Lvl (test code = Calcium Lvl) 9.0 8.5-10.5 [facility] HospitalBezrpkcXDPTOQMXEQHA8076-88-99 02:01:00 Test Item Value Reference Range Interpretation Comments CO2 (test code = CO2) 26 24-32 [facility] HospitalJoeduxeRNKFMUFJNXUN3847-14-24 02:01:00 Test Item Value Reference Range Interpretation Comments eGFR (test code = eGFR) 110 [facility] HospitalYpglmjaFLQUYGOGIUFF2979-54-92 02:01:00 Test Item Value Reference Range Interpretation Comments Bili Total (test code = Bili Total) 0.3 0.2-1.3 [facility] Hos[id number] 02:01:00 Test Item Value Reference Range Interpretation Comments Alk Phos (test code = Alk Phos) 84 39-136 [facility] HospitalWssttnxRPNWNVHHXWAO4154-66-45 02:01:00 Test Item Value Reference Range Interpretation Comments AST (test code = AST) 17 See_Comment [Auto mated message] The system which ge nerated this result transmit arvind reference range : <=37. The reference range was not used to interpr et this result as mario l/abnormal. [facility] HospitalAmmaexaMOBCFLSYEYHA0432-44-94 02:01:00 Test Item Value Reference Range Interpretation Comments ALT (test code = ALT) 42 See_Comment [Auto mated message] The system which ge nerated this result transmit arvind reference range : <=65. The reference range was not used to interpr et this result as mario l/abnormal. [facility] HospitalNesoxpuWZJORMFRXKZS4709-18-53 02:01:00 Test Item Value Reference Range Interpretation Comments Albumin Lvl (test code = Albumin Lvl) 3.8 3.5-5.0 [facility] HospitalNjnwoudXIJJOHDBOLKC9808-28-87 02:01:00 Test Item Value Reference Range Interpretation Comments Sodium Lvl (test code = Sodium Lvl) 139 135-145 [facility] HospitalKuphsfnVAVJSPGRGVTL1872-04-38 02:01:00 Test Item Value Reference Range Interpretation Comments Chloride Lvl (test code = Chloride Lvl) 106 95-109 [facility] HospitalDyvrwhbJJGJOQSPUSDY5785-59-21 02:01:00 Test Item Value Reference Range Interpretation Comments Potassium Lvl (test code = Potassium 3.7 3.5-5.1 Lvl) [facility] HospitalRkoiaqvILXFNRSMSOIL0517-72-76 02:01:00 Test Item Value Reference Range Interpretation Comments BUN (test code = BUN) 10 7-22 [facility] HospitalKneidgdLEGLWKJCLTJM5636-89-99 02:01:00 Test Item Value Reference Range Interpretation Comments Glucose Lvl (test code = Glucose Lvl) 88 70-99 [facility] HospitalPijjipuPLNOVKFRQRXM8859-71-97 02:01:00 Test Item Value Reference Range Interpretation Comments Creatinine Lvl (test code = Creatinine 0.76 0.50-1.40 Lvl) [facility]wayRkwdauqEAVOYQJJZK8694-03-91 02:01:00 Test Item Value Reference Range Interpretation Comments Segs-Bands # (test code = Segs-Bands #) 5.4 1.5-8.1 [facility] LakewayNgtkwntULNQDDSEGO1811-42-84 02:01:00 Test Item Value Reference Range Interpretation Comments Basophils (test code = 1.0 See_Comment [Aut omated message] The Basophils) system which ge nerated this result tra nsmitted reference range : <=1.0. The reference r kat was not used to int erpret this result as normal/abnormal . [facility] LakewayEmeukvgOMPVVNJVJJ5120-26-04 02:01:00 Test Item Value Reference Range Interpretation Comments Monocytes # (test code 0.7 See_Comment [Aut omated message] The = Monocytes #) system which generated this result tra nsmitted reference range : <=0.8. The reference r kat was not used to int erpret this result as normal/abnormal . [facility] LakewayEkliktyALOZLYJZYN5172-48-37 02:01:00 Test Item Value Reference Range Interpretation Comments Lymphocytes (test code = Lymphocytes) 35.1 20.0-40.0 [facility] LakewayMyyuxvqAGOKWXYSBK1170-04-25 02:01:00 Test Item Value Reference Range Interpretation Comments Lymphocytes # (test code = Lymphocytes 3.5 1.0-5.5 #) [facility] LakewayKepajkeYWHFTTLVYB4800-58-47 02:01:00 Test Item Value Reference Range Interpretation Comments Monocytes (test code = Monocytes) 6.7 2.0-12.0 [facility] LakewayDerwfliSDEXCPLHBG1140-70-81 02:01:00 Test Item Value Reference Range Interpretation Comments Segs (test code = Segs) 54.8 45.0-75.0 [facility] LakewayIlthhnwBREECWZKYU4913-74-04 02:01:00 Test Item Value Reference Range Interpretation Comments Eosinophils (test code = 2.4 See_Comment [A utomated message] The Eosinophils) system which ge nerated this result tra nsmitted reference range : <=4.0. The reference r kat was not used to int erpret this result as normal/abnormal . [facility] LakewayNudrhkiVWDVSDLKME2812-31-79 02:01:00 Test Item Value Reference Range Interpretation Comments Basophils # (test code 0.1 See_Comment [Aut omated message] The = Basophils #) system which generated this result tra nsmitted reference range : <=0.2. The reference r kat was not used to int erpret this result as normal/abnormal . [facility] LakewayGsesugeUEXVIRSTVY1971-01-77 02:01:00 Test Item Value Reference Range Interpretation Comments Microcyte (test code = 1+ *ABN*(09/17/15 Microcyte) 8:01 PM) [facility] LakewayAmignkwRCXXDWNGVX5206-13-79 02:01:00 Test Item Value Reference Range Interpretation Comments Eosinophils # (test code 0.2 See_Comment [A utomated message] The = Eosinophils #) system whic h generated this result tra nsmitted reference range : <=0.5. The reference r kat was not used to int erpret this result as normal/abnormal . [facility] LakewayPkjrgjzUUYIJPMIDT7264-60-87 02:01:00 Test Item Value Reference Range Interpretation Comments MPV (test code = MPV) 10.0 7.4-10.4 [facility] LakewayQseitwpHCATGNQBCW8210-87-43 02:01:00 Test Item Value Reference Range Interpretation Comments RDW (test code = RDW) 16.9 11.5-14.5 [facility] LakewayHuadykjJOZKOSHJLK1711-17-77 02:01:00 Test Item Value Reference Range Interpretation Comments Platelet (test code = Platelet) 208 133-450 [facility] LakewayUknfzkdHGGGEIMZXI2640-84-75 02:01:00 Test Item Value Reference Range Interpretation Comments MCV (test code = MCV) 77.9 80.0-98.0 [facility] LakewayGrrwnybRJUMIQAVJE2323-04-29 02:01:00 Test Item Value Reference Range Interpretation Comments MCH (test code = MCH) 24.2 pg 27.0-31.0 [facility] LakewayUeatqizOORDCNQYEL7088-92-67 02:01:00 Test Item Value Reference Range Interpretation Comments MCHC (test code = MCHC) 31.1 32.0-36.0 [facility] LakewayOrkdbfzDMLIHQOHDE4525-03-30 02:01:00 Test Item Value Reference Range Interpretation Comments Hgb (test code = Hgb) 13.3 12.0-16.0 [facility] LakewaySjjouviMFCWPSDWIL3195-61-94 02:01:00 Test Item Value Reference Range Interpretation Comments Hct (test code = Hct) 42.6 36.0-48.0 [facility] LakewayOpvqywpXDMRCWMRGK8659-12-66 02:01:00 Test Item Value Reference Range Interpretation Comments WBC (test code = WBC) 9.9 3.7-10.4 [facility] LakewayDhlomsyZJDSFPAHAF3870-52-09 02:01:00 Test Item Value Reference Range Interpretation Comments RBC (test code = RBC) 5.47 4.20-5.40 [facility]2016-01-20 02:01:00 Test Item Value Reference Range Interpretation Comments Lipase Lvl (test code = Lipase Lvl) 196 [address] [facility] XNQDF6223-30-99 02:01:00 Test Item Value Reference Range Interpretation Comments Amylase Lvl (test code = Amylase Lvl) 33 25-115 [facility] HospitalGoqbbmzCBANCTWDCPZF7191-82-36 02:01:00 Test Item Value Reference Range Interpretation Comments AGAP (test code = AGAP) 10.7 10.0-20.0 [facility] HospitalWbufdxnZKAURXRNRLFH3078-18-09 02:01:00 Test Item Value Reference Range Interpretation Comments A/G Ratio (test code = A/G Ratio) 1.2 0.7-1.6 [facility] HospitalKhstqvrXQUDRWBOKMSK9188-20-11 02:01:00 Test Item Value Reference Range Interpretation Comments Globulin (test code = Globulin) 3.1 2.0-4.0 [facility] HospitalGwgirmbKXSGUFJSUNXQ4357-08-61 02:01:00 Test Item Value Reference Range Interpretation Comments B/C Ratio (test code = B/C Ratio) 13 6-25 [facility] HospitalWezzmpjIXRROOURWISK5583-95-55 02:01:00 Test Item Value Reference Range Interpretation Comments Total Protein (test code = Total 6.9 6.4-8.4 Protein) [facility] HospitalSahagkhCQWOARMHQJFS7999-55-46 02:01:00 Test Item Value Reference Range Interpretation Comments Calcium Lvl (test code = Calcium Lvl) 9.0 8.5-10.5 [facility] HospitalFrmntwoFGPQYTKFRHOL3678-88-91 02:01:00 Test Item Value Reference Range Interpretation Comments CO2 (test code = CO2) 26 24-32 [facility] HospitalHjqqtrpKPPWVEICHMWC3431-47-75 02:01:00 Test Item Value Reference Range Interpretation Comments eGFR (test code = eGFR) 110 [facility] HospitalWixjescWAUWHYJAWTZT6774-72-47 02:01:00 Test Item Value Reference Range Interpretation Comments Bili Total (test code = Bili Total) 0.3 0.2-1.3 [facility] HospitalOncfvikKYQCMWHOZSSN1030-95-60 02:01:00 Test Item Value Reference Range Interpretation Comments Alk Phos (test code = Alk Phos) 84 39-136 [facility] HospitalIaheerrEZVABRWZFVMN7210-94-32 02:01:00 Test Item Value Reference Range Interpretation Comments AST (test code = AST) 17 See_Comment [Auto mated message] The system which ge nerated this result transmit arvind reference range : <=37. The reference range was not used to interpr et this result as mario l/abnormal. [facility] HospitalWrrdjrrFTVKVBUEQDBX0133-72-35 02:01:00 Test Item Value Reference Range Interpretation Comments ALT (test code = ALT) 42 See_Comment [Auto mated message] The system which ge nerated this result transmit arvind reference range : <=65. The reference range was not used to interpr et this result as mario l/abnormal. [facility] HospitalIcqhrucIQFBGHHJYXRG6235-90-26 02:01:00 Test Item Value Reference Range Interpretation Comments Albumin Lvl (test code = Albumin Lvl) 3.8 3.5-5.0 [facility] HospitalCzmnwczVTZFIUKBDWEA9370-18-36 02:01:00 Test Item Value Reference Range Interpretation Comments Sodium Lvl (test code = Sodium Lvl) 139 135-145 [facility] HospitalRcoovdrQZLABWVJGGAT7194-80-44 02:01:00 Test Item Value Reference Range Interpretation Comments Chloride Lvl (test code = Chloride Lvl) 106 95-109 [facility] HospitalVgqldkxQLWGEAMBENCQ2588-68-90 02:01:00 Test Item Value Reference Range Interpretation Comments Potassium Lvl (test code = Potassium 3.7 3.5-5.1 Lvl) [facility] HospitalTkeqacgQQYFRVMSLGML1149-33-28 02:01:00 Test Item Value Reference Range Interpretation Comments BUN (test code = BUN) 10 7-22 [facility] HospitalRshzkdcHIGLQUOFDUJQ7535-30-57 02:01:00 Test Item Value Reference Range Interpretation Comments Glucose Lvl (test code = Glucose Lvl) 88 70-99 [facility] HospitalFnqzutfCLQUICLSEZLN4471-28-34 02:01:00 Test Item Value Reference Range Interpretation Comments Creatinine Lvl (test code = Creatinine 0.76 0.50-1.40 Lvl) [facility] LakewayTdoddbaYXHRWPAFGG6726-86-41 02:01:00 Test Item Value Reference Range Interpretation Comments Segs-Bands # (test code = Segs-Bands #) 5.4 1.5-8.1 [facility] LakewayQxdxaiwYLTGCTTTZP5103-56-03 02:01:00 Test Item Value Reference Range Interpretation Comments Basophils (test code = 1.0 See_Comment [Aut omated message] The Basophils) system which ge nerated this result tra nsmitted reference range : <=1.0. The reference r kat was not used to int erpret this result as normal/abnormal . [facility] LakewayQcordunWZABIDBRBP7990-95-46 02:01:00 Test Item Value Reference Range Interpretation Comments Monocytes # (test code 0.7 See_Comment [Aut omated message] The = Monocytes #) system which generated this result tra nsmitted reference range : <=0.8. The reference r kat was not used to int erpret this result as normal/abnormal . [facility] LakewayDcmxmblUFLDVTJEWQ5914-51-70 02:01:00 Test Item Value Reference Range Interpretation Comments Lymphocytes (test code = Lymphocytes) 35.1 20.0-40.0 [facility] LakewayZcdpwgxWJWFDCLOFR7114-93-44 02:01:00 Test Item Value Reference Range Interpretation Comments Lymphocytes # (test code = Lymphocytes 3.5 1.0-5.5 #) [facility] LakewayZzbqcfeXCLVVFOLWV6893-30-07 02:01:00 Test Item Value Reference Range Interpretation Comments Monocytes (test code = Monocytes) 6.7 2.0-12.0 [facility] LakewayNknlvhwNBPLAGLCPD1373-68-00 02:01:00 Test Item Value Reference Range Interpretation Comments Segs (test code = Segs) 54.8 45.0-75.0 [facility] LakewaySvqbpcsDLHWGOTRIN5188-13-71 02:01:00 Test Item Value Reference Range Interpretation Comments Eosinophils (test code = 2.4 See_Comment [A utomated message] The Eosinophils) system which ge nerated this result tra nsmitted reference range : <=4.0. The reference r kat was not used to int erpret this result as normal/abnormal . [facility] LakewayQuhqcnuQEQZDWPMZD5725-51-95 02:01:00 Test Item Value Reference Range Interpretation Comments Basophils # (test code 0.1 See_Comment [Aut omated message] The = Basophils #) system which generated this result tra nsmitted reference range : <=0.2. The reference r kat was not used to int erpret this result as normal/abnormal . [facility] LakewayJyorcyuWXQWWPIAVB1967-45-06 02:01:00 Test Item Value Reference Range Interpretation Comments Microcyte (test code = 1+ *ABN*(09/17/15 Microcyte) 8:01 PM) [facility] LakewayOmmmnekXSQUYWZSRY9608-32-17 02:01:00 Test Item Value Reference Range Interpretation Comments Eosinophils # (test code 0.2 See_Comment [A utomated message] The = Eosinophils #) system whic h generated this result tra nsmitted reference range : <=0.5. The reference r kat was not used to int erpret this result as normal/abnormal . [facility]wayFvfxmugGGBEBMWZAE4481-33-05 02:01:00 Test Item Value Reference Range Interpretation Comments MPV (test code = MPV) 10.0 7.4-10.4 [facility] LakewayMhxtiwhSZLIPYIERJ2610-19-78 02:01:00 Test Item Value Reference Range Interpretation Comments RDW (test code = RDW) 16.9 11.5-14.5 [facility]wayYcdzwpcTLRJCJBAQQ1244-27-77 02:01:00 Test Item Value Reference Range Interpretation Comments Platelet (test code = Platelet) 208 133-450 [facility] LakewayFqqamcaSEXKRTDEMD0757-70-21 02:01:00 Test Item Value Reference Range Interpretation Comments MCV (test code = MCV) 77.9 80.0-98.0 [facility] LakewayKdtbwbxGMVAOLTPLE0180-47-17 02:01:00 Test Item Value Reference Range Interpretation Comments MCH (test code = MCH) 24.2 pg 27.0-31.0 [facility] LakewayHndttmiUUJPQNMPJW6561-85-50 02:01:00 Test Item Value Reference Range Interpretation Comments MCHC (test code = MCHC) 31.1 32.0-36.0 [facility] LakewayPtssqtdJAQDYJHMST9686-55-01 02:01:00 Test Item Value Reference Range Interpretation Comments Hgb (test code = Hgb) 13.3 12.0-16.0 [facility] LakewayEvdhqayNOLOLWTALO4615-44-34 02:01:00 Test Item Value Reference Range Interpretation Comments Hct (test code = Hct) 42.6 36.0-48.0 [facility] LakewayLapkeadNSHOHCUPWT2786-09-58 02:01:00 Test Item Value Reference Range Interpretation Comments WBC (test code = WBC) 9.9 3.7-10.4 [facility] LakewayUtuygnoDDZWHACLTF4956-83-80 02:01:00 Test Item Value Reference Range Interpretation Comments RBC (test code = RBC) 5.47 4.20-5.40 [facility]2016-01-20 02:01:00 Test Item Value Reference Range Interpretation Comments Lipase Lvl (test code = Lipase Lvl) 196 [address] [facility] HAFFD7348-24-17 02:01:00 Test Item Value Reference Range Interpretation Comments Amylase Lvl (test code = Amylase Lvl) 33 25-115 [facility]KjgoetcCZZYGLOMZUCG5916-88-50 02:01:00 Test Item Value Reference Range Interpretation Comments AGAP (test code = AGAP) 10.7 10.0-20.0 [facility] HospitalSfoberyWLBDWERCPDIV6638-94-68 02:01:00 Test Item Value Reference Range Interpretation Comments A/G Ratio (test code = A/G Ratio) 1.2 0.7-1.6 [facility] HospitalKwteyldTDBIUMLCIPMG1204-37-32 02:01:00 Test Item Value Reference Range Interpretation Comments Globulin (test code = Globulin) 3.1 2.0-4.0 [facility] HospitalUkjauqpFDBKLLXHEEDH3133-43-55 02:01:00 Test Item Value Reference Range Interpretation Comments B/C Ratio (test code = B/C Ratio) 13 6-25 [facility] HospitalRbymsqfGOOXWKOLUJAF3745-38-86 02:01:00 Test Item Value Reference Range Interpretation Comments Total Protein (test code = Total 6.9 6.4-8.4 Protein) [facility] HospitalMfmjfpbNQMAOCRDYVJS1279-63-72 02:01:00 Test Item Value Reference Range Interpretation Comments Calcium Lvl (test code = Calcium Lvl) 9.0 8.5-10.5 [facility] HospitalFmirkqeBGWRUCMNNULM4431-50-44 02:01:00 Test Item Value Reference Range Interpretation Comments CO2 (test code = CO2) 26 24-32 [facility] HospitalTwbtmlwQQLYTYVFFBKJ7451-80-89 02:01:00 Test Item Value Reference Range Interpretation Comments eGFR (test code = eGFR) 110 [facility] HospitalKwduhczVWJIJKHUEGIN9043-71-04 02:01:00 Test Item Value Reference Range Interpretation Comments Bili Total (test code = Bili Total) 0.3 0.2-1.3 [facility] HospitalNekkaaeVYXLGAQQPUUY3890-41-22 02:01:00 Test Item Value Reference Range Interpretation Comments Alk Phos (test code = Alk Phos) 84 39-136 [facility] HospitalEogenmfCVRHJQLJZIRZ5992-01-80 02:01:00 Test Item Value Reference Range Interpretation Comments AST (test code = AST) 17 See_Comment [Auto mated message] The system which ge nerated this result transmit arvind reference range : <=37. The reference range was not used to interpr et this result as mario l/abnormal. [facility] HospitalZkotgyzLPHAHUJYXECU5721-58-35 02:01:00 Test Item Value Reference Range Interpretation Comments ALT (test code = ALT) 42 See_Comment [Auto mated message] The system which ge nerated this result transmit arvind reference range : <=65. The reference range was not used to interpr et this result as mario l/abnormal. [facility] HospitalJovjrweJHKQGGJGJTXJ1794-31-12 02:01:00 Test Item Value Reference Range Interpretation Comments Albumin Lvl (test code = Albumin Lvl) 3.8 3.5-5.0 [facility] HospitalIxaemegQOIWHCQCVYFK6385-60-12 02:01:00 Test Item Value Reference Range Interpretation Comments Sodium Lvl (test code = Sodium Lvl) 139 135-145 [facility] HospitalQwjhiwcNSJFDPYXXZCC1765-09-26 02:01:00 Test Item Value Reference Range Interpretation Comments Chloride Lvl (test code = Chloride Lvl) 106 95-109 [facility] HospitalSjhhjfjUEOGTVCSCVNI1532-99-12 02:01:00 Test Item Value Reference Range Interpretation Comments Potassium Lvl (test code = Potassium 3.7 3.5-5.1 Lvl) [facility] HospitalDjdyltmVHUCSXOAAJPD2544-80-20 02:01:00 Test Item Value Reference Range Interpretation Comments BUN (test code = BUN) 10 7-22 [facility] HospitalQlqkuebRLWHISQVCTMT9032-33-70 02:01:00 Test Item Value Reference Range Interpretation Comments Glucose Lvl (test code = Glucose Lvl) 88 70-99 [facility] HospitalIxasqhjRCKSFIANVFYU7645-63-94 02:01:00 Test Item Value Reference Range Interpretation Comments Creatinine Lvl (test code = Creatinine 0.76 0.50-1.40 Lvl) [facility]wayUpffvrnJLOBZUMSDN4633-80-50 02:01:00 Test Item Value Reference Range Interpretation Comments Segs-Bands # (test code = Segs-Bands #) 5.4 1.5-8.1 [facility] LakewayUgzmintDRMKVBVUCU9254-53-70 02:01:00 Test Item Value Reference Range Interpretation Comments Basophils (test code = 1.0 See_Comment [Aut omated message] The Basophils) system which ge nerated this result tra nsmitted reference range : <=1.0. The reference r kat was not used to int erpret this result as normal/abnormal . [facility] LakewayIhqcprnOBAGCOWWEV6556-01-06 02:01:00 Test Item Value Reference Range Interpretation Comments Monocytes # (test code 0.7 See_Comment [Aut omated message] The = Monocytes #) system which generated this result tra nsmitted reference range : <=0.8. The reference r kat was not used to int erpret this result as normal/abnormal . [facility]wayEbfznbxFBCBJPMUSC2118-86-98 02:01:00 Test Item Value Reference Range Interpretation Comments Lymphocytes (test code = Lymphocytes) 35.1 20.0-40.0 [facility] LakewayGhculvvAXHRXLSLXK7082-22-40 02:01:00 Test Item Value Reference Range Interpretation Comments Lymphocytes # (test code = Lymphocytes 3.5 1.0-5.5 #) [facility] LakewayUmzitwwPMBPBDMXCS1482-70-67 02:01:00 Test Item Value Reference Range Interpretation Comments Monocytes (test code = Monocytes) 6.7 2.0-12.0 [facility] LakewayBoxdkfaCMFOUXCUDW0321-67-09 02:01:00 Test Item Value Reference Range Interpretation Comments Segs (test code = Segs) 54.8 45.0-75.0 [facility] LakewayAmyovjcRESQOWNMIH5872-14-25 02:01:00 Test Item Value Reference Range Interpretation Comments Eosinophils (test code = 2.4 See_Comment [A utomated message] The Eosinophils) system which ge nerated this result tra nsmitted reference range : <=4.0. The reference r kat was not used to int erpret this result as normal/abnormal . [facility] LakewayHihucmyFEUXUPNADZ7454-09-59 02:01:00 Test Item Value Reference Range Interpretation Comments Basophils # (test code 0.1 See_Comment [Aut omated message] The = Basophils #) system which generated this result tra nsmitted reference range : <=0.2. The reference r kat was not used to int erpret this result as normal/abnormal . [facility]wayPjfpjvrIKVAEBVZCI8159-52-78 02:01:00 Test Item Value Reference Range Interpretation Comments Microcyte (test code = 1+ *ABN*(09/17/15 Microcyte) 8:01 PM) [facility] LakewayRemyuzzJKXVOOIZBQ9578-90-15 02:01:00 Test Item Value Reference Range Interpretation Comments Eosinophils # (test code 0.2 See_Comment [A utomated message] The = Eosinophils #) system whic h generated this result tra nsmitted reference range : <=0.5. The reference r kat was not used to int erpret this result as normal/abnormal . [facility] LakewayLwpvrifISNVZZAZEP9714-21-63 02:01:00 Test Item Value Reference Range Interpretation Comments MPV (test code = MPV) 10.0 7.4-10.4 [facility] LakewayEvaqzhsOUAOWKEYWZ4269-02-24 02:01:00 Test Item Value Reference Range Interpretation Comments RDW (test code = RDW) 16.9 11.5-14.5 [facility] LakewayOzthvyoEFCOIGZXOU1322-99-94 02:01:00 Test Item Value Reference Range Interpretation Comments Platelet (test code = Platelet) 208 133-450 [facility] LakewayZtevpmpBTOESVHNVC3013-55-45 02:01:00 Test Item Value Reference Range Interpretation Comments MCV (test code = MCV) 77.9 80.0-98.0 [facility] LakewayYpybfruZYXTIIVNDI3360-58-98 02:01:00 Test Item Value Reference Range Interpretation Comments MCH (test code = MCH) 24.2 pg 27.0-31.0 [facility] LakewayQidclkoDFJGLOOTPS2983-40-28 02:01:00 Test Item Value Reference Range Interpretation Comments MCHC (test code = MCHC) 31.1 32.0-36.0 [facility] LakewayFccbrnzULJZRGPUUC5240-57-17 02:01:00 Test Item Value Reference Range Interpretation Comments Hgb (test code = Hgb) 13.3 12.0-16.0 [facility] LakewayXkmwovzQOOEONYUVM5315-19-08 02:01:00 Test Item Value Reference Range Interpretation Comments Hct (test code = Hct) 42.6 36.0-48.0 [facility] LakewayTxzzilaVMRNAUVUZV2863-20-92 02:01:00 Test Item Value Reference Range Interpretation Comments WBC (test code = WBC) 9.9 3.7-10.4 [facility] LakewayRwnkkpfGGMCGMJUPR1145-25-21 02:01:00 Test Item Value Reference Range Interpretation Comments RBC (test code = RBC) 5.47 4.20-5.40 [facility]2016-01-20 02:01:00 Test Item Value Reference Range Interpretation Comments Lipase Lvl (test code = Lipase Lvl) 196 [address] [facility] WQGSO4658-70-78 02:01:00 Test Item Value Reference Range Interpretation Comments Amylase Lvl (test code = Amylase Lvl) 33 25-115 [facility] HospitalHyhpxjtCXUUYRWABLQF9499-33-26 02:01:00 Test Item Value Reference Range Interpretation Comments AGAP (test code = AGAP) 10.7 10.0-20.0 [facility] HospitalRdyhiwqXLQYYDUTMGQR1337-54-14 02:01:00 Test Item Value Reference Range Interpretation Comments A/G Ratio (test code = A/G Ratio) 1.2 0.7-1.6 [facility] HospitalReriuoiRXOCDKLYSOAB7756-49-42 02:01:00 Test Item Value Reference Range Interpretation Comments Globulin (test code = Globulin) 3.1 2.0-4.0 [facility] HospitalFpcssofJVYLULNQQAYJ2808-07-21 02:01:00 Test Item Value Reference Range Interpretation Comments B/C Ratio (test code = B/C Ratio) 13 6-25 [facility] HospitalBjvedpkXIHKYDTNZESL0021-52-61 02:01:00 Test Item Value Reference Range Interpretation Comments Total Protein (test code = Total 6.9 6.4-8.4 Protein) [facility] HospitalFwhcaqoQCMBNFZNUWQI6260-06-49 02:01:00 Test Item Value Reference Range Interpretation Comments Calcium Lvl (test code = Calcium Lvl) 9.0 8.5-10.5 [facility] HospitalHenqkdpTZLJGPFMZBLV8035-00-11 02:01:00 Test Item Value Reference Range Interpretation Comments CO2 (test code = CO2) 26 24-32 [facility] HospitalLxhvqmoGTIXGGOTXQAH0611-44-29 02:01:00 Test Item Value Reference Range Interpretation Comments eGFR (test code = eGFR) 110 [facility] HospitalNwwzneaMODZIGRPFUGL7307-57-04 02:01:00 Test Item Value Reference Range Interpretation Comments Bili Total (test code = Bili Total) 0.3 0.2-1.3 [facility] HospitalKwhvfhrBEEXJVXOSXRJ8322-60-43 02:01:00 Test Item Value Reference Range Interpretation Comments Alk Phos (test code = Alk Phos) 84 39-136 [facility] HospitalEacpekxDVVNWUUZCEFE5038-78-73 02:01:00 Test Item Value Reference Range Interpretation Comments AST (test code = AST) 17 See_Comment [Auto mated message] The system which ge nerated this result transmit arvind reference range : <=37. The reference range was not used to interpr et this result as mario l/abnormal. [facility] HospitalKbhalzrTQYSPNEIXQCW6595-05-07 02:01:00 Test Item Value Reference Range Interpretation Comments ALT (test code = ALT) 42 See_Comment [Auto mated message] The system which ge nerated this result transmit arvind reference range : <=65. The reference range was not used to interpr et this result as mario l/abnormal. [facility] HospitalMpwqvufYHLOPLYHPVGL4581-60-59 02:01:00 Test Item Value Reference Range Interpretation Comments Albumin Lvl (test code = Albumin Lvl) 3.8 3.5-5.0 [facility] HospitalMaajsefBFUFNSFCJING9220-13-90 02:01:00 Test Item Value Reference Range Interpretation Comments Sodium Lvl (test code = Sodium Lvl) 139 135-145 [facility] HospitalAtmeeqnTDOEUTGPQONR3249-17-86 02:01:00 Test Item Value Reference Range Interpretation Comments Chloride Lvl (test code = Chloride Lvl) 106 95-109 [facility] HospitalMkviszrDNXMWRNIZICU9333-47-82 02:01:00 Test Item Value Reference Range Interpretation Comments Potassium Lvl (test code = Potassium 3.7 3.5-5.1 Lvl) [facility] HospitalOwbvxrjEOYETTURFEWS5420-99-18 02:01:00 Test Item Value Reference Range Interpretation Comments BUN (test code = BUN) 10 7-22 [facility] HospitalQjqndmrOUBDCIHAGQWV2433-30-82 02:01:00 Test Item Value Reference Range Interpretation Comments Glucose Lvl (test code = Glucose Lvl) 88 70-99 [facility] HospitalJxkreipABCLPRECVHFC6886-22-23 02:01:00 Test Item Value Reference Range Interpretation Comments Creatinine Lvl (test code = Creatinine 0.76 0.50-1.40 Lvl) [facility]wayHjqsuxuMNDKSIPVEA8880-79-89 02:01:00 Test Item Value Reference Range Interpretation Comments Segs-Bands # (test code = Segs-Bands #) 5.4 1.5-8.1 [facility] LakewayTtcmpriGACZSWDUMN2637-96-92 02:01:00 Test Item Value Reference Range Interpretation Comments Basophils (test code = 1.0 See_Comment [Aut omated message] The Basophils) system which ge nerated this result tra nsmitted reference range : <=1.0. The reference r kat was not used to int erpret this result as normal/abnormal . [facility] LakewayAwjbetiKDYBQHQDTV2962-92-16 02:01:00 Test Item Value Reference Range Interpretation Comments Monocytes # (test code 0.7 See_Comment [Aut omated message] The = Monocytes #) system which generated this result tra nsmitted reference range : <=0.8. The reference r kat was not used to int erpret this result as normal/abnormal . [facility] LakewayDuffyfyIAICOKKHFW5099-12-73 02:01:00 Test Item Value Reference Range Interpretation Comments Lymphocytes (test code = Lymphocytes) 35.1 20.0-40.0 [facility] LakewayMhmqvviHEHGDJQMAJ2757-84-28 02:01:00 Test Item Value Reference Range Interpretation Comments Lymphocytes # (test code = Lymphocytes 3.5 1.0-5.5 #) [facility] LakewayFwpjoiaNAPWLONFFT5769-87-02 02:01:00 Test Item Value Reference Range Interpretation Comments Monocytes (test code = Monocytes) 6.7 2.0-12.0 [facility] LakewayFpycrlxXBGZMKWKES5881-82-18 02:01:00 Test Item Value Reference Range Interpretation Comments Segs (test code = Segs) 54.8 45.0-75.0 [facility] LakewayQemhfkxXKHXGYFGBC2271-99-88 02:01:00 Test Item Value Reference Range Interpretation Comments Eosinophils (test code = 2.4 See_Comment [A utomated message] The Eosinophils) system which ge nerated this result tra nsmitted reference range : <=4.0. The reference r kat was not used to int erpret this result as normal/abnormal . [facility] LakewayMhgalyjLVDIISWQJH4804-61-28 02:01:00 Test Item Value Reference Range Interpretation Comments Basophils # (test code 0.1 See_Comment [Aut omated message] The = Basophils #) system which generated this result tra nsmitted reference range : <=0.2. The reference r kat was not used to int erpret this result as normal/abnormal . [facility] LakewayIboctpoPQOIOLODQU5484-97-17 02:01:00 Test Item Value Reference Range Interpretation Comments Microcyte (test code = 1+ *ABN*(09/17/15 Microcyte) 8:01 PM) [facility] LakewayUwjgllmDOHMOSZZWP9167-73-76 02:01:00 Test Item Value Reference Range Interpretation Comments Eosinophils # (test code 0.2 See_Comment [A utomated message] The = Eosinophils #) system whic h generated this result tra nsmitted reference range : <=0.5. The reference r kat was not used to int erpret this result as normal/abnormal . [facility]wayXpdrwmqLVPULJDMVR1084-35-57 02:01:00 Test Item Value Reference Range Interpretation Comments MPV (test code = MPV) 10.0 7.4-10.4 [facility] LakewayJxqghauRKDFLVEVNQ0666-34-78 02:01:00 Test Item Value Reference Range Interpretation Comments RDW (test code = RDW) 16.9 11.5-14.5 [facility] LakewayLbkupboUQKDBXLFOP2562-29-17 02:01:00 Test Item Value Reference Range Interpretation Comments Platelet (test code = Platelet) 208 133-450 [facility] LakewayJzmjzdjEHCODJPTMF1445-31-34 02:01:00 Test Item Value Reference Range Interpretation Comments MCV (test code = MCV) 77.9 80.0-98.0 [facility] LakewayMmzrgiaQBFPBOPWMR7419-65-03 02:01:00 Test Item Value Reference Range Interpretation Comments MCH (test code = MCH) 24.2 pg 27.0-31.0 [facility] LakewayCumooddSFKDKNBPQG3258-28-86 02:01:00 Test Item Value Reference Range Interpretation Comments MCHC (test code = MCHC) 31.1 32.0-36.0 [facility] LakewayYwhgvysCXQWCMYTSV8079-35-40 02:01:00 Test Item Value Reference Range Interpretation Comments Hgb (test code = Hgb) 13.3 12.0-16.0 [facility] LakewayGimlrhzYSNPFQZPKG9529-70-93 02:01:00 Test Item Value Reference Range Interpretation Comments Hct (test code = Hct) 42.6 36.0-48.0 [facility] LakewayWjgbktwNILJSONBNJ3408-67-07 02:01:00 Test Item Value Reference Range Interpretation Comments WBC (test code = WBC) 9.9 3.7-10.4 [facility] LakewayPozbdvqUFDSDTRRFE0670-99-74 02:01:00 Test Item Value Reference Range Interpretation Comments RBC (test code = RBC) 5.47 4.20-5.40 [facility]2016-01-20 02:01:00 Test Item Value Reference Range Interpretation Comments Lipase Lvl (test code = Lipase Lvl) 196 [address]93 [facility]2016-01-20 02:01:00 Test Item Value Reference Range Interpretation Comments Amylase Lvl (test code = Amylase Lvl) 33 25-115 [facility] HospitalClsdckaTVVGXOEXCFPF4437-35-06 02:01:00 Test Item Value Reference Range Interpretation Comments AGAP (test code = AGAP) 10.7 10.0-20.0 [facility] HospitalYrnieecKISIKRRNTTUC8325-09-62 02:01:00 Test Item Value Reference Range Interpretation Comments A/G Ratio (test code = A/G Ratio) 1.2 0.7-1.6 [facility] HospitalBfebskmCMMKHFBTAHJJ1417-24-31 02:01:00 Test Item Value Reference Range Interpretation Comments Globulin (test code = Globulin) 3.1 2.0-4.0 [facility] HospitalTulolmkUMFTPEBBZNMP8193-99-86 02:01:00 Test Item Value Reference Range Interpretation Comments B/C Ratio (test code = B/C Ratio) 13 6-25 [facility] HospitalLnzyyglPUTSMXEODDNM3642-68-76 02:01:00 Test Item Value Reference Range Interpretation Comments Total Protein (test code = Total 6.9 6.4-8.4 Protein) [facility] HospitalJthlsgaWXBGRMVRQCUN6218-00-50 02:01:00 Test Item Value Reference Range Interpretation Comments Calcium Lvl (test code = Calcium Lvl) 9.0 8.5-10.5 [facility] HospitalWzlzqitNFQQDSTJUMZV4393-45-44 02:01:00 Test Item Value Reference Range Interpretation Comments CO2 (test code = CO2) 26 24-32 [facility] HospitalDabbjbfJBXDOLHCQNUL9151-41-41 02:01:00 Test Item Value Reference Range Interpretation Comments eGFR (test code = eGFR) 110 [facility] HospitalOaenodoKGSDFMSJGVSY1663-00-02 02:01:00 Test Item Value Reference Range Interpretation Comments Bili Total (test code = Bili Total) 0.3 0.2-1.3 [facility] HospitalZndekebLAIPIQIUPFHM9432-04-83 02:01:00 Test Item Value Reference Range Interpretation Comments Alk Phos (test code = Alk Phos) 84 39-136 [facility] HospitalGwuvegmRQGYKMXETANR9367-56-91 02:01:00 Test Item Value Reference Range Interpretation Comments AST (test code = AST) 17 See_Comment [Auto mated message] The system which ge nerated this result transmit arvind reference range : <=37. The reference range was not used to interpr et this result as mario l/abnormal. [facility] HospitalAhxjxjbTSLVCUQBSWEE4821-60-75 02:01:00 Test Item Value Reference Range Interpretation Comments ALT (test code = ALT) 42 See_Comment [Auto mated message] The system which ge nerated this result transmit arvind reference range : <=65. The reference range was not used to interpr et this result as mario l/abnormal. [facility] HospitalUbpghpqMLHVAQICKDXR1790-26-07 02:01:00 Test Item Value Reference Range Interpretation Comments Albumin Lvl (test code = Albumin Lvl) 3.8 3.5-5.0 [facility] HospitalIcleeikLYGIKSOASQJR0320-98-63 02:01:00 Test Item Value Reference Range Interpretation Comments Sodium Lvl (test code = Sodium Lvl) 139 135-145 [facility] HospitalCzakihgQWYTFQEINMBQ8177-57-07 02:01:00 Test Item Value Reference Range Interpretation Comments Chloride Lvl (test code = Chloride Lvl) 106 95-109 [facility] HospitalEobjmbxYBDKERYXYPNF9009-97-90 02:01:00 Test Item Value Reference Range Interpretation Comments Potassium Lvl (test code = Potassium 3.7 3.5-5.1 Lvl) [facility] HospitalYxvkitdEMIAEQGKWUXG4819-72-83 02:01:00 Test Item Value Reference Range Interpretation Comments BUN (test code = BUN) 10 7-22 [facility] HospitalDchbnxfUZHWPPIRRBQP5479-24-16 02:01:00 Test Item Value Reference Range Interpretation Comments Glucose Lvl (test code = Glucose Lvl) 88 70-99 [facility] HospitalUykoljrBCPLGGTDPCQZ6948-41-28 02:01:00 Test Item Value Reference Range Interpretation Comments Creatinine Lvl (test code = Creatinine 0.76 0.50-1.40 Lvl) [facility] LakewayUxrftphMBLFRSDYEL7057-51-27 02:01:00 Test Item Value Reference Range Interpretation Comments Segs-Bands # (test code = Segs-Bands #) 5.4 1.5-8.1 [facility] LakewayKuxfdwkHKWKPTMEIM0013-14-70 02:01:00 Test Item Value Reference Range Interpretation Comments Basophils (test code = 1.0 See_Comment [Aut omated message] The Basophils) system which ge nerated this result tra nsmitted reference range : <=1.0. The reference r kat was not used to int erpret this result as normal/abnormal . [facility] LakewayNeftzmcVRETSWTUCU5911-20-32 02:01:00 Test Item Value Reference Range Interpretation Comments Monocytes # (test code 0.7 See_Comment [Aut omated message] The = Monocytes #) system which generated this result tra nsmitted reference range : <=0.8. The reference r kat was not used to int erpret this result as normal/abnormal . [facility]wayXeyfojtFJQUBWKTQD7894-29-80 02:01:00 Test Item Value Reference Range Interpretation Comments Lymphocytes (test code = Lymphocytes) 35.1 20.0-40.0 [facility] LakewayOonyckvHAZOCLYFXK6016-74-04 02:01:00 Test Item Value Reference Range Interpretation Comments Lymphocytes # (test code = Lymphocytes 3.5 1.0-5.5 #) [facility] LakewayHseflaiTOFVUDDJUC5056-59-98 02:01:00 Test Item Value Reference Range Interpretation Comments Monocytes (test code = Monocytes) 6.7 2.0-12.0 [facility] LakewayZhqeaznOSHKPTPKZU7830-46-93 02:01:00 Test Item Value Reference Range Interpretation Comments Segs (test code = Segs) 54.8 45.0-75.0 [facility] [place]TgmeeugTIYJGMQUAJ8987-52-68 02:01:00 Test Item Value Reference Range Interpretation Comments Eosinophils (test code = 2.4 See_Comment [A utomated message] The Eosinophils) system which ge nerated this result tra nsmitted reference range : <=4.0. The reference r kat was not used to int erpret this result as normal/abnormal . [facility] LakewayXqlurcfADFRQDPXWW1817-16-13 02:01:00 Test Item Value Reference Range Interpretation Comments Basophils # (test code 0.1 See_Comment [Aut omated message] The = Basophils #) system which generated this result tra nsmitted reference range : <=0.2. The reference r kat was not used to int erpret this result as normal/abnormal . [facility] LakewayHrrrtfeEUFBFBGAOX6402-94-96 02:01:00 Test Item Value Reference Range Interpretation Comments Microcyte (test code = 1+ *ABN*(09/17/15 Microcyte) 8:01 PM) [facility] LakewayHieebvpZZJIVSYCHN2587-92-03 02:01:00 Test Item Value Reference Range Interpretation Comments Eosinophils # (test code 0.2 See_Comment [A utomated message] The = Eosinophils #) system whic h generated this result tra nsmitted reference range : <=0.5. The reference r kat was not used to int erpret this result as normal/abnormal . [facility]2016-01-20 02:01:00 Test Item Value Reference Range Interpretation Comments Lipase Lvl (test code = Lipase Lvl) 196 73-393 [facility]2016-01-20 02:01:00 Test Item Value Reference Range Interpretation Comments Amylase Lvl (test code = Amylase Lvl) 33 25-115 [facility]GiqjwuzBEVZGJANLLPJ6668-12-59 02:01:00 Test Item Value Reference Range Interpretation Comments AGAP (test code = AGAP) 10.7 10.0-20.0 [facility] HospitalOuoemfhEVEJVTLYQCPI7220-87-08 02:01:00 Test Item Value Reference Range Interpretation Comments A/G Ratio (test code = A/G Ratio) 1.2 0.7-1.6 [facility] HospitalFovtugtGKWRFITKGHDV9536-10-28 02:01:00 Test Item Value Reference Range Interpretation Comments Globulin (test code = Globulin) 3.1 2.0-4.0 [facility] HospitalIawiqnvHOIBOMIRUDVL7935-75-84 02:01:00 Test Item Value Reference Range Interpretation Comments B/C Ratio (test code = B/C Ratio) 13 6-25 [facility] HospitalWvoqjguOLCQHRTRMZAM1381-14-30 02:01:00 Test Item Value Reference Range Interpretation Comments Total Protein (test code = Total 6.9 6.4-8.4 Protein) [facility] HospitalLdobwffBUEPDJZSLOHK4305-98-08 02:01:00 Test Item Value Reference Range Interpretation Comments Calcium Lvl (test code = Calcium Lvl) 9.0 8.5-10.5 [facility]QnpfrqbYNBBMXNRSE4193-04-80 02:01:00 Test Item Value Reference Range Interpretation Comments MPV (test code = MPV) 10.0 7.4-10.4 [facility] HospitalMdgifxtQGUQMUYGZDJB4017-40-83 02:01:00 Test Item Value Reference Range Interpretation Comments CO2 (test code = CO2) 26 24-32 [facility] HospitalIjzcyoqYIKUVYXWTPGZ3456-82-83 02:01:00 Test Item Value Reference Range Interpretation Comments eGFR (test code = eGFR) 110 [facility] HospitalOifaublRXKDSHOHNXQS5327-79-97 02:01:00 Test Item Value Reference Range Interpretation Comments Bili Total (test code = Bili Total) 0.3 0.2-1.3 [facility] HospitalNyxkwxfQPFXMRCTZKLK5724-98-01 02:01:00 Test Item Value Reference Range Interpretation Comments Alk Phos (test code = Alk Phos) 84 39-136 [facility] HospitalNnowirwGGXZBFKSNZMC4666-82-02 02:01:00 Test Item Value Reference Range Interpretation Comments AST (test code = AST) 17 See_Comment [Auto mated message] The system which ge nerated this result transmit arvind reference range : <=37. The reference range was not used to interpr et this result as mario l/abnormal. [facility] HospitalZwrkyfxZWFIJSXMNATA4564-11-74 02:01:00 Test Item Value Reference Range Interpretation Comments ALT (test code = ALT) 42 See_Comment [Auto mated message] The system which ge nerated this result transmit arvind reference range : <=65. The reference range was not used to interpr et this result as mario l/abnormal. [facility] HospitalBzimkiaINRSLFAQFSVM9505-14-96 02:01:00 Test Item Value Reference Range Interpretation Comments Albumin Lvl (test code = Albumin Lvl) 3.8 3.5-5.0 [facility] HospitalKfdalnyWWIPCPCRYGMQ1856-04-15 02:01:00 Test Item Value Reference Range Interpretation Comments Sodium Lvl (test code = Sodium Lvl) 139 135-145 [facility] HospitalXjdmihvNVXQSNAAGAIF5950-69-59 02:01:00 Test Item Value Reference Range Interpretation Comments Chloride Lvl (test code = Chloride Lvl) 106 95-109 [facility] HospitalBefodtnOVDTDXDOGLNW9793-66-64 02:01:00 Test Item Value Reference Range Interpretation Comments Potassium Lvl (test code = Potassium 3.7 3.5-5.1 Lvl) [facility] LakewayFibxpntRWUEDFFNNO3956-55-14 02:01:00 Test Item Value Reference Range Interpretation Comments RDW (test code = RDW) 16.9 11.5-14.5 [facility] HospitalFasspwdPHZFFSFEGWBJ5769-92-43 02:01:00 Test Item Value Reference Range Interpretation Comments BUN (test code = BUN) 10 7-22 [facility] HospitalTtvxpvqFPWNXRQJPMZT5782-75-43 02:01:00 Test Item Value Reference Range Interpretation Comments Glucose Lvl (test code = Glucose Lvl) 88 70-99 [facility] HospitalAfbwkoaLFOWHCFVKQCX0827-18-63 02:01:00 Test Item Value Reference Range Interpretation Comments Creatinine Lvl (test code = Creatinine 0.76 0.50-1.40 Lvl) [facility] LakewaySazvknjPPGDFPFOTW5578-33-15 02:01:00 Test Item Value Reference Range Interpretation Comments Segs-Bands # (test code = Segs-Bands #) 5.4 1.5-8.1 [facility] LakewayWidabgkUFYBVBMDXQ2313-11-38 02:01:00 Test Item Value Reference Range Interpretation Comments Basophils (test code = 1.0 See_Comment [Aut omated message] The Basophils) system which ge nerated this result tra nsmitted reference range : <=1.0. The reference r kat was not used to int erpret this result as normal/abnormal . [facility] LakewayVbuhymeLAPHGLFCOQ6899-01-57 02:01:00 Test Item Value Reference Range Interpretation Comments Monocytes # (test code 0.7 See_Comment [Aut omated message] The = Monocytes #) system which generated this result tra nsmitted reference range : <=0.8. The reference r kat was not used to int erpret this result as normal/abnormal . [facility] LakewaySfzeblbSYKRDWOJAA0115-29-21 02:01:00 Test Item Value Reference Range Interpretation Comments Lymphocytes (test code = Lymphocytes) 35.1 20.0-40.0 [facility] LakewayFuaozjvEFDPRRGUVW9476-67-83 02:01:00 Test Item Value Reference Range Interpretation Comments Lymphocytes # (test code = Lymphocytes 3.5 1.0-5.5 #) [facility] LakewayKbrvcpiJSBJQIXNMG1471-68-36 02:01:00 Test Item Value Reference Range Interpretation Comments Monocytes (test code = Monocytes) 6.7 2.0-12.0 [facility] LakewayConfeknLAAHSAAFHV9756-01-11 02:01:00 Test Item Value Reference Range Interpretation Comments Segs (test code = Segs) 54.8 45.0-75.0 [facility] LakewayLvtrrmxORQLHPLHAF9135-66-43 02:01:00 Test Item Value Reference Range Interpretation Comments Platelet (test code = Platelet) 208 133-450 [facility] LakewayZjfpirlRLSWUBFRTF4509-69-18 02:01:00 Test Item Value Reference Range Interpretation Comments Eosinophils (test code = 2.4 See_Comment [A utomated message] The Eosinophils) system which ge nerated this result tra nsmitted reference range : <=4.0. The reference r kat was not used to int erpret this result as normal/abnormal . [facility] LakewayAvvkmqxNOJULRTPUP6760-41-71 02:01:00 Test Item Value Reference Range Interpretation Comments Basophils # (test code 0.1 See_Comment [Aut omated message] The = Basophils #) system which generated this result tra nsmitted reference range : <=0.2. The reference r kat was not used to int erpret this result as normal/abnormal . [facility] LakewayDsgaiopABZJSBZMWY1643-01-24 02:01:00 Test Item Value Reference Range Interpretation Comments Microcyte (test code = 1+ *ABN*(09/17/15 Microcyte) 8:01 PM) [facility] LakewayTvbzsptOQJWPXXSVC9429-51-39 02:01:00 Test Item Value Reference Range Interpretation Comments Eosinophils # (test code 0.2 See_Comment [A utomated message] The = Eosinophils #) system whic h generated this result tra nsmitted reference range : <=0.5. The reference r kat was not used to int erpret this result as normal/abnormal . [facility] LakewayVznysjsYEHBQKQKYJ5596-31-03 02:01:00 Test Item Value Reference Range Interpretation Comments MPV (test code = MPV) 10.0 7.4-10.4 [facility] LakewayGmekexmQOGLPTTQHB8167-00-97 02:01:00 Test Item Value Reference Range Interpretation Comments RDW (test code = RDW) 16.9 11.5-14.5 [facility] LakewayYlauhrjMCXPBPBMGW3525-63-62 02:01:00 Test Item Value Reference Range Interpretation Comments Platelet (test code = Platelet) 208 133-450 [facility] LakewayOlyqhmrCZOGJHKURW1816-07-52 02:01:00 Test Item Value Reference Range Interpretation Comments MCV (test code = MCV) 77.9 80.0-98.0 [facility] LakewayImjenzdQIMPBGCMAB4811-02-56 02:01:00 Test Item Value Reference Range Interpretation Comments MCH (test code = MCH) 24.2 pg 27.0-31.0 [facility] LakewayHtukgtyAPNWVCOJWM7390-19-58 02:01:00 Test Item Value Reference Range Interpretation Comments MCHC (test code = MCHC) 31.1 32.0-36.0 [facility] LakewayDitufxoYITCXQFNWE0878-97-43 02:01:00 Test Item Value Reference Range Interpretation Comments MCV (test code = MCV) 77.9 80.0-98.0 [facility] LakewayQhirjeyBUCLHWXYTP8764-09-19 02:01:00 Test Item Value Reference Range Interpretation Comments Hgb (test code = Hgb) 13.3 12.0-16.0 [facility] LakewayZtzuppiTWEDEOLGOJ5256-42-53 02:01:00 Test Item Value Reference Range Interpretation Comments Hct (test code = Hct) 42.6 36.0-48.0 [facility] LakewayZflqrfoCZFPFXEVNI6758-62-40 02:01:00 Test Item Value Reference Range Interpretation Comments WBC (test code = WBC) 9.9 3.7-10.4 [facility] LakewayOiufhkqWZSXPMQKWH0835-42-29 02:01:00 Test Item Value Reference Range Interpretation Comments RBC (test code = RBC) 5.47 4.20-5.40 [facility] LakewayWhhsyorHWVSVGEQYM6375-72-25 02:01:00 Test Item Value Reference Range Interpretation Comments MCH (test code = MCH) 24.2 pg 27.0-31.0 [facility] LakewayKrdcoikHBJPOQQJRB1719-06-22 02:01:00 Test Item Value Reference Range Interpretation Comments MCHC (test code = MCHC) 31.1 32.0-36.0 [facility] LakewayLiexbatASXTMIRFLX6102-31-53 02:01:00 Test Item Value Reference Range Interpretation Comments Hgb (test code = Hgb) 13.3 12.0-16.0 [facility] LakewayHwrpaewQWKCTQLPHX0049-27-16 02:01:00 Test Item Value Reference Range Interpretation Comments Hct (test code = Hct) 42.6 36.0-48.0 [facility] LakewayMmkmumjQRBRMHMFAA6203-47-04 02:01:00 Test Item Value Reference Range Interpretation Comments WBC (test code = WBC) 9.9 3.7-10.4 [facility] LakewayGzxomstVPPFGELGBK6164-61-82 02:01:00 Test Item Value Reference Range Interpretation Comments RBC (test code = RBC) 5.47 4.20-5.40 [facility]2016-01-20 02:01:00 Test Item Value Reference Range Interpretation Comments Lipase Lvl (test code = Lipase Lvl) 196 73-393 [facility]2016-01-20 02:01:00 Test Item Value Reference Range Interpretation Comments Amylase Lvl (test code = Amylase Lvl) 33 25-115 [facility] HospitalCzowrpuCIHXQJEPBYGZ8070-10-10 02:01:00 Test Item Value Reference Range Interpretation Comments AGAP (test code = AGAP) 10.7 10.0-20.0 [facility] HospitalNrbojdwCJJXFNAWJHSU5069-24-32 02:01:00 Test Item Value Reference Range Interpretation Comments A/G Ratio (test code = A/G Ratio) 1.2 0.7-1.6 [place] 716346-01-20 02:01:00 Test Item Value Reference Range Interpretation Comments Globulin (test code = Globulin) 3.1 2.0-4.0 [facility] HospitalAnfanomCHLEQBNDUISL6632-19-89 02:01:00 Test Item Value Reference Range Interpretation Comments B/C Ratio (test code = B/C Ratio) 13 6-25 [facility] HospitalTwpvvhsEBMOPTHYSHBQ7604-76-14 02:01:00 Test Item Value Reference Range Interpretation Comments Total Protein (test code = Total 6.9 6.4-8.4 Protein) [facility] HospitalUgtkwtySLESMRROYSNI0900-71-82 02:01:00 Test Item Value Reference Range Interpretation Comments Calcium Lvl (test code = Calcium Lvl) 9.0 8.5-10.5 [facility] HospitalZvrtlojIRBACTTJDJJT7781-20-02 02:01:00 Test Item Value Reference Range Interpretation Comments CO2 (test code = CO2) 26 24-32 [facility] HospitalUuqxrgmIXIXBELYMWMB6797-81-65 02:01:00 Test Item Value Reference Range Interpretation Comments eGFR (test code = eGFR) 110 [facility] HospitalDehfxmvRXZUOUUPFRZI2506-17-56 02:01:00 Test Item Value Reference Range Interpretation Comments Bili Total (test code = Bili Total) 0.3 0.2-1.3 [facility] HospitalKkofdnbKDRLCKAIAUQL5997-34-52 02:01:00 Test Item Value Reference Range Interpretation Comments Alk Phos (test code = Alk Phos) 84 39-136 [facility] HospitalRnahniiXYYWIMCBCBJJ1629-69-22 02:01:00 Test Item Value Reference Range Interpretation Comments AST (test code = AST) 17 See_Comment [Auto mated message] The system which ge nerated this result transmit arvind reference range : <=37. The reference range was not used to interpr et this result as mario l/abnormal. [facility] HospitalPdeopxcTMDVKPUMPJWR0967-21-03 02:01:00 Test Item Value Reference Range Interpretation Comments ALT (test code = ALT) 42 See_Comment [Auto mated message] The system which ge nerated this result transmit arvind reference range : <=65. The reference range was not used to interpr et this result as mario l/abnormal. [facility] HospitalHmpdcdlFBONLGPYVQCO8118-92-93 02:01:00 Test Item Value Reference Range Interpretation Comments Albumin Lvl (test code = Albumin Lvl) 3.8 3.5-5.0 [facility] HospitalKghksozCOBYTBQLFPZH8624-35-32 02:01:00 Test Item Value Reference Range Interpretation Comments Sodium Lvl (test code = Sodium Lvl) 139 135-145 [facility] HospitalZcckxwxOEKREEJJOTTR8791-26-26 02:01:00 Test Item Value Reference Range Interpretation Comments Chloride Lvl (test code = Chloride Lvl) 106 95-109 [facility] HospitalWrtjlijCGKHUZSZGDNK4297-00-86 02:01:00 Test Item Value Reference Range Interpretation Comments Potassium Lvl (test code = Potassium 3.7 3.5-5.1 Lvl) [facility] HospitalQagwbneRVWGRNXLINHM2210-05-87 02:01:00 Test Item Value Reference Range Interpretation Comments BUN (test code = BUN) 10 7-22 [facility] HospitalXfeqlmmEAYMHOGOBPGA0861-92-62 02:01:00 Test Item Value Reference Range Interpretation Comments Glucose Lvl (test code = Glucose Lvl) 88 70-99 [facility] HospitalVvmecplNJAWOSGTXSKS9371-37-00 02:01:00 Test Item Value Reference Range Interpretation Comments Creatinine Lvl (test code = Creatinine 0.76 0.50-1.40 Lvl) [facility] LakewayJebvuyuDDQEAUOOQV8884-83-06 02:01:00 Test Item Value Reference Range Interpretation Comments Segs-Bands # (test code = Segs-Bands #) 5.4 1.5-8.1 [facility] LakewayYmxpzgnUMSUTZAKMG8823-66-18 02:01:00 Test Item Value Reference Range Interpretation Comments Basophils (test code = 1.0 See_Comment [Aut omated message] The Basophils) system which ge nerated this result tra nsmitted reference range : <=1.0. The reference r kat was not used to int erpret this result as normal/abnormal . [facility] LakewayDpoqxubOQBCGQWESI6436-42-81 02:01:00 Test Item Value Reference Range Interpretation Comments Monocytes # (test code 0.7 See_Comment [Aut omated message] The = Monocytes #) system which generated this result tra nsmitted reference range : <=0.8. The reference r kat was not used to int erpret this result as normal/abnormal . [facility] LakewayCrxzjmpJIXDUXGBDW9325-36-97 02:01:00 Test Item Value Reference Range Interpretation Comments Lymphocytes (test code = Lymphocytes) 35.1 20.0-40.0 [facility] LakewayTvonxefIWGOWDCZWN3137-82-53 02:01:00 Test Item Value Reference Range Interpretation Comments Lymphocytes # (test code = Lymphocytes 3.5 1.0-5.5 #) [facility] LakewayIyizzntPVHTMUUQMM4320-25-87 02:01:00 Test Item Value Reference Range Interpretation Comments Monocytes (test code = Monocytes) 6.7 2.0-12.0 [facility] LakewayMqksyutOEHJCNKYUQ3950-26-51 02:01:00 Test Item Value Reference Range Interpretation Comments Segs (test code = Segs) 54.8 45.0-75.0 [facility] LakewayUsbajnaSVYWUDAIGI6972-86-61 02:01:00 Test Item Value Reference Range Interpretation Comments Eosinophils (test code = 2.4 See_Comment [A utomated message] The Eosinophils) system which ge nerated this result tra nsmitted reference range : <=4.0. The reference r kat was not used to int erpret this result as normal/abnormal . [facility] LakewayPybscwnYKMWMQYWIU6492-47-43 02:01:00 Test Item Value Reference Range Interpretation Comments Basophils # (test code 0.1 See_Comment [Aut omated message] The = Basophils #) system which generated this result tra nsmitted reference range : <=0.2. The reference r kat was not used to int erpret this result as normal/abnormal . [facility] LakewayIxhlzedHFNTEKWDZW6711-06-38 02:01:00 Test Item Value Reference Range Interpretation Comments Microcyte (test code = 1+ *ABN*(09/17/15 Microcyte) 8:01 PM) [facility] LakewayJpzuwfmOOWJHIZXOO2385-95-02 02:01:00 Test Item Value Reference Range Interpretation Comments Eosinophils # (test code 0.2 See_Comment [A utomated message] The = Eosinophils #) system whic h generated this result tra nsmitted reference range : <=0.5. The reference r kat was not used to int erpret this result as normal/abnormal . [facility] LakewayBdturwsWHNNQULRQB3940-92-80 02:01:00 Test Item Value Reference Range Interpretation Comments MPV (test code = MPV) 10.0 7.4-10.4 [facility] LakewayAjnesvxCRSSFURUUG5703-15-43 02:01:00 Test Item Value Reference Range Interpretation Comments RDW (test code = RDW) 16.9 11.5-14.5 [facility] LakewayRrfongwTXEUCXZMUC0973-30-77 02:01:00 Test Item Value Reference Range Interpretation Comments Platelet (test code = Platelet) 208 133-450 [facility] LakewayHrzqeszMYXPBIOGZK1121-85-60 02:01:00 Test Item Value Reference Range Interpretation Comments MCV (test code = MCV) 77.9 80.0-98.0 [facility] LakewayQcgktoxAFKYMTRLPT1559-40-92 02:01:00 Test Item Value Reference Range Interpretation Comments MCH (test code = MCH) 24.2 pg 27.0-31.0 [facility] LakewayNwlgpylGZCVBGORLN5418-28-90 02:01:00 Test Item Value Reference Range Interpretation Comments MCHC (test code = MCHC) 31.1 32.0-36.0 [facility] LakewayOrzalstVEMEZXBNCE5103-79-74 02:01:00 Test Item Value Reference Range Interpretation Comments Hgb (test code = Hgb) 13.3 12.0-16.0 [facility] LakewayGdhtjchHYTMULAXRE7135-55-04 02:01:00 Test Item Value Reference Range Interpretation Comments Hct (test code = Hct) 42.6 36.0-48.0 [facility] LakewayImhjdqlKOEOKBWWJV0641-19-34 02:01:00 Test Item Value Reference Range Interpretation Comments WBC (test code = WBC) 9.9 3.7-10.4 [facility] LakewayUwkteumYLOMTWIAXA1775-42-18 02:01:00 Test Item Value Reference Range Interpretation Comments RBC (test code = RBC) 5.47 4.20-5.40 [facility]2016-01-20 02:01:00 Test Item Value Reference Range Interpretation Comments Lipase Lvl (test code = Lipase Lvl) 196 73-393 [facility] CenterR[facility] XVACS1482-28-96 02:01:00 Test Item Value Reference Range Interpretation Comments Amylase Lvl (test code = Amylase Lvl) 33 25-115 [facility] HospitalJnqywswZORYGAQOXFYM0164-24-31 02:01:00 Test Item Value Reference Range Interpretation Comments AGAP (test code = AGAP) 10.7 10.0-20.0 [facility] HospitalJusaqnvHUZZIPYCZCRA6284-08-93 02:01:00 Test Item Value Reference Range Interpretation Comments A/G Ratio (test code = A/G Ratio) 1.2 0.7-1.6 [facility] HospitalKkidtksVKNGTCNPJEZK7149-28-31 02:01:00 Test Item Value Reference Range Interpretation Comments Globulin (test code = Globulin) 3.1 2.0-4.0 [facility] HospitalBxbplodJTHTLSRLUMMB8319-46-54 02:01:00 Test Item Value Reference Range Interpretation Comments B/C Ratio (test code = B/C Ratio) 13 6-25 [facility] HospitalFdgoxduMRCEQPTUSKWD6115-80-82 02:01:00 Test Item Value Reference Range Interpretation Comments Total Protein (test code = Total 6.9 6.4-8.4 Protein) [facility] HospitalOemiekcJOQAZOBQOZSA1593-48-08 02:01:00 Test Item Value Reference Range Interpretation Comments Calcium Lvl (test code = Calcium Lvl) 9.0 8.5-10.5 [facility] HospitalFexyjjoJECBTVNVOICH4009-18-98 02:01:00 Test Item Value Reference Range Interpretation Comments CO2 (test code = CO2) 26 24-32 [facility] HospitalWkrlkkfRIDHJLUXRIGW0921-04-88 02:01:00 Test Item Value Reference Range Interpretation Comments eGFR (test code = eGFR) 110 [facility] HospitalQzirdynUSGNXZDSXLTT2618-95-14 02:01:00 Test Item Value Reference Range Interpretation Comments Bili Total (test code = Bili Total) 0.3 0.2-1.3 [facility] HospitalDqpmeofRHKOQUHEVMYH5176-40-90 02:01:00 Test Item Value Reference Range Interpretation Comments Alk Phos (test code = Alk Phos) 84 39-136 [facility] HospitalDqcloqpXFZCSSYBTKEC4398-46-98 02:01:00 Test Item Value Reference Range Interpretation Comments AST (test code = AST) 17 See_Comment [Auto mated message] The system which ge nerated this result transmit arvind reference range : <=37. The reference range was not used to interpr et this result as mario l/abnormal. [facility] HospitalAwtlwtuEBZGRDYJMWSD5852-34-93 02:01:00 Test Item Value Reference Range Interpretation Comments ALT (test code = ALT) 42 See_Comment [Auto mated message] The system which ge nerated this result transmit arvind reference range : <=65. The reference range was not used to interpr et this result as mario l/abnormal. [facility] HospitalYkisoxxELZDGHBNNXGW6553-08-22 02:01:00 Test Item Value Reference Range Interpretation Comments Albumin Lvl (test code = Albumin Lvl) 3.8 3.5-5.0 [facility] HospitalLtdeqfeDCEEPYMGDYSE1474-69-90 02:01:00 Test Item Value Reference Range Interpretation Comments Sodium Lvl (test code = Sodium Lvl) 139 135-145 [facility] HospitalIycmmxoWUEZKTUGIEVE7208-46-52 02:01:00 Test Item Value Reference Range Interpretation Comments Chloride Lvl (test code = Chloride Lvl) 106 95-109 [facility] HospitalPobzkazLLASYDSSKHHY1102-58-82 02:01:00 Test Item Value Reference Range Interpretation Comments Potassium Lvl (test code = Potassium 3.7 3.5-5.1 Lvl) [facility] HospitalLskrpvkWVXIIYGFRRSF8845-60-67 02:01:00 Test Item Value Reference Range Interpretation Comments BUN (test code = BUN) 10 7-22 [facility] HospitalYbabvbdGCGRNSCLOENQ1847-17-99 02:01:00 Test Item Value Reference Range Interpretation Comments Glucose Lvl (test code = Glucose Lvl) 88 70-99 [facility] HospitalZdzuqudYPNHKGXUPKKM3491-01-49 02:01:00 Test Item Value Reference Range Interpretation Comments Creatinine Lvl (test code = Creatinine 0.76 0.50-1.40 Lvl) [facility] LakewayRpchuweGBHMDQVPJG1452-27-24 02:01:00 Test Item Value Reference Range Interpretation Comments Segs-Bands # (test code = Segs-Bands #) 5.4 1.5-8.1 [facility] LakewayAvdmktjMGFMSYZCZS7083-37-14 02:01:00 Test Item Value Reference Range Interpretation Comments Basophils (test code = 1.0 See_Comment [Aut omated message] The Basophils) system which ge nerated this result tra nsmitted reference range : <=1.0. The reference r kat was not used to int erpret this result as normal/abnormal . [facility]wayUolmfgjHRMSREQOVD1050-77-42 02:01:00 Test Item Value Reference Range Interpretation Comments Monocytes # (test code 0.7 See_Comment [Aut omated message] The = Monocytes #) system which generated this result tra nsmitted reference range : <=0.8. The reference r kat was not used to int erpret this result as normal/abnormal . [facility] LakewayCfdymenXIYGXEOTYH2667-87-55 02:01:00 Test Item Value Reference Range Interpretation Comments Lymphocytes (test code = Lymphocytes) 35.1 20.0-40.0 [facility] LakewayVxqbkghTCFGMLAXRZ2611-51-75 02:01:00 Test Item Value Reference Range Interpretation Comments Lymphocytes # (test code = Lymphocytes 3.5 1.0-5.5 #) [facility] LakewayJtknoerLVVVEGHUXZ8374-39-46 02:01:00 Test Item Value Reference Range Interpretation Comments Monocytes (test code = Monocytes) 6.7 2.0-12.0 [facility] LakewayYnxsjixSUWJPXKDLA9226-94-49 02:01:00 Test Item Value Reference Range Interpretation Comments Segs (test code = Segs) 54.8 45.0-75.0 [facility] LakewayIjxfksiXSLUMLVIIQ0150-73-51 02:01:00 Test Item Value Reference Range Interpretation Comments Eosinophils (test code = 2.4 See_Comment [A utomated message] The Eosinophils) system which ge nerated this result tra nsmitted reference range : <=4.0. The reference r kat was not used to int erpret this result as normal/abnormal . [facility] LakewayHjpchpnWCLYISPRBK8989-01-30 02:01:00 Test Item Value Reference Range Interpretation Comments Basophils # (test code 0.1 See_Comment [Aut omated message] The = Basophils #) system which generated this result tra nsmitted reference range : <=0.2. The reference r kat was not used to int erpret this result as normal/abnormal . [facility] LakewayNxblmqkNKXYBTIJTR6715-69-98 02:01:00 Test Item Value Reference Range Interpretation Comments Microcyte (test code = 1+ *ABN*(09/17/15 Microcyte) 8:01 PM) [facility] LakewayJwiojujYHLXRPHDQC5674-27-96 02:01:00 Test Item Value Reference Range Interpretation Comments Eosinophils # (test code 0.2 See_Comment [A utomated message] The = Eosinophils #) system whic h generated this result tra nsmitted reference range : <=0.5. The reference r kat was not used to int erpret this result as normal/abnormal . [facility] LakewayZzikblsFGPXOGKMDE6744-89-31 02:01:00 Test Item Value Reference Range Interpretation Comments MPV (test code = MPV) 10.0 7.4-10.4 [facility] LakewayVwwwkckBRILOVZGEQ0843-59-26 02:01:00 Test Item Value Reference Range Interpretation Comments RDW (test code = RDW) 16.9 11.5-14.5 [facility] LakewayLksychzJPEVSXEGNJ0632-85-36 02:01:00 Test Item Value Reference Range Interpretation Comments Platelet (test code = Platelet) 208 133-450 [facility] LakewayQjolbeyHIUOMFZATB8978-79-70 02:01:00 Test Item Value Reference Range Interpretation Comments MCV (test code = MCV) 77.9 80.0-98.0 [facility] LakewayDvhskowNTZHUCPNOI1594-23-40 02:01:00 Test Item Value Reference Range Interpretation Comments MCH (test code = MCH) 24.2 pg 27.0-31.0 [facility] LakewayYqodmikMVIHGBTHZW4531-86-68 02:01:00 Test Item Value Reference Range Interpretation Comments MCHC (test code = MCHC) 31.1 32.0-36.0 [facility] LakewayIvovsqyAWLRRZWUNI9829-10-04 02:01:00 Test Item Value Reference Range Interpretation Comments Hgb (test code = Hgb) 13.3 12.0-16.0 [facility]wayXdjytqyZHOBNCPDXO4802-95-86 02:01:00 Test Item Value Reference Range Interpretation Comments Hct (test code = Hct) 42.6 36.0-48.0 [facility]wayXfzatgtCZPXZTAHRL6557-54-68 02:01:00 Test Item Value Reference Range Interpretation Comments WBC (test code = WBC) 9.9 3.7-10.4 [facility] LakewayItspjgkHYUQIATEMG4994-54-84 02:01:00 Test Item Value Reference Range Interpretation Comments RBC (test code = RBC) 5.47 4.20-5.40 [facility]2015-12-28 16:57:00 Test Item Value Reference Range Interpretation Comments eGFR (test code = eGFR) 86 [facility]2015-12-28 16:57:00 Test Item Value Reference Range Interpretation Comments Potassium Lvl (test code = Potassium 3.6 3.5-5.1 Lvl) [facility]2015-12-28 16:57:00 Test Item Value Reference Range Interpretation Comments CO2 (test code = CO2) 27 -32 [facility]2015-12-28 16:57:00 Test Item Value Reference Range Interpretation Comments Chloride Lvl (test code = Chloride Lvl) 103 95-109 [facility]2015-12-28 16:57:00 Test Item Value Reference Range Interpretation Comments Calcium Lvl (test code = Calcium Lvl) 9.4 8.5-10.5 [facility]2015-12-28 16:57:00 Test Item Value Reference Range Interpretation Comments AST (test code = AST) 16 See_Comment [Auto mated message] The system which ge nerated this result transmit arvind reference range : <=37. The reference range was not used to interpr et this result as mario l/abnormal. [facility]2015-12-28 16:57:00 Test Item Value Reference Range Interpretation Comments ALT (test code = ALT) 43 See_Comment [Auto mated message] The system which ge nerated this result transmit arvind reference range : <=65. The reference range was not used to interpr et this result as mario l/abnormal. [facility]2015-12-28 16:57:00 Test Item Value Reference Range Interpretation Comments Alk Phos (test code = Alk Phos) 97 39-136 [facility]2015-12-28 16:57:00 Test Item Value Reference Range Interpretation Comments Albumin Lvl (test code = Albumin Lvl) 3.6 3.5-5.0 [facility]2015-12-28 16:57:00 Test Item Value Reference Range Interpretation Comments Total Protein (test code = Total 7.3 6.4-8.4 Protein) [facility]2015-12-28 16:57:00 Test Item Value Reference Range Interpretation Comments Bili Total (test code = Bili Total) 0.4 0.2-1.3 [facility]2015-12-28 16:57:00 Test Item Value Reference Range Interpretation Comments Glucose Lvl (test code = Glucose Lvl) 95 70-99 [facility]2015-12-28 16:57:00 Test Item Value Reference Range Interpretation Comments Creatinine Lvl (test code = Creatinine 0.93 0.50-1.40 Lvl) [facility]2015-12-28 16:57:00 Test Item Value Reference Range Interpretation Comments BUN (test code = BUN) 9 7-22 [facility]2015-12-28 16:57:00 Test Item Value Reference Range Interpretation Comments Sodium Lvl (test code = Sodium Lvl) 139 135-145 [facility]2015-12-28 16:57:00 Test Item Value Reference Range Interpretation Comments A/G Ratio (test code = A/G Ratio) 1.0 0.7-1.6 [facility]2015-12-28 16:57:00 Test Item Value Reference Range Interpretation Comments Globulin (test code = Globulin) 3.7 2.0-4.0 [facility]2015-12-28 16:57:00 Test Item Value Reference Range Interpretation Comments B/C Ratio (test code = B/C Ratio) 10 6-25 [facility]2015-12-28 16:57:00 Test Item Value Reference Range Interpretation Comments AGAP (test code = AGAP) 12.6 10.0-20.0 [place] [id number] 16:57:00 Test Item Value Reference Range Interpretation Comments S Preg (test code = S Negative *NA*(08/26/15 Preg) 10:57 AM) [facility]wayJwybvqhVFQCKRFPFI0915-38-24 16:57:00 Test Item Value Reference Range Interpretation Comments Eosinophils # (test code 0.4 See_Comment [A utomated message] The = Eosinophils #) system whic h generated this result tra nsmitted reference range : <=0.5. The reference r kat was not used to int erpret this result as normal/abnormal . [facility] LakewayDrtxlifCGEFZVXDJW8258-18-25 16:57:00 Test Item Value Reference Range Interpretation Comments Microcyte (test code = 1+ *ABN*(08/26/15 Microcyte) 10:57 AM) [facility]wayHwxwjqpUYCGMHIDWX7338-26-19 16:57:00 Test Item Value Reference Range Interpretation Comments Basophils # (test code 0.1 See_Comment [Aut omated message] The = Basophils #) system which generated this result tra nsmitted reference range : <=0.2. The reference r kat was not used to int erpret this result as normal/abnormal . [facility] LakewayGbvyqvsTVIIFMIGIM0015-01-73 16:57:00 Test Item Value Reference Range Interpretation Comments Monocytes (test code = Monocytes) 8.6 2.0-12.0 [facility] LakewayYbbmeguNHXVNDCIKI7543-13-47 16:57:00 Test Item Value Reference Range Interpretation Comments Lymphocytes (test code = Lymphocytes) 40.6 20.0-40.0 [facility] LakewayMrrdejxVOLFFZHJOO5069-36-10 16:57:00 Test Item Value Reference Range Interpretation Comments Eosinophils (test code = 5.0 See_Comment [A utomated message] The Eosinophils) system which ge nerated this result tra nsmitted reference range : <=4.0. The reference r kat was not used to int erpret this result as normal/abnormal . [facility]wayBtnspcpJCQEMCQNOM3100-24-92 16:57:00 Test Item Value Reference Range Interpretation Comments Segs (test code = Segs) 44.8 45.0-75.0 [facility] LakewayUwjlkgkVLEIYCSELD2205-87-12 16:57:00 Test Item Value Reference Range Interpretation Comments Basophils (test code = 1.0 See_Comment [Aut omated message] The Basophils) system which ge nerated this result tra nsmitted reference range : <=1.0. The reference r kat was not used to int erpret this result as normal/abnormal . [facility] LakewayOuoobocVVVDBRWVYE8875-76-16 16:57:00 Test Item Value Reference Range Interpretation Comments Segs-Bands # (test code = Segs-Bands #) 3.3 1.5-8.1 [facility] LakewayUtmqvvzQVSQDHXUAG0923-37-64 16:57:00 Test Item Value Reference Range Interpretation Comments Monocytes # (test code 0.6 See_Comment [Aut omated message] The = Monocytes #) system which generated this result tra nsmitted reference range : <=0.8. The reference r kat was not used to int erpret this result as normal/abnormal . [facility] LakewayUshycwxZFSUKLWIBW2261-07-74 16:57:00 Test Item Value Reference Range Interpretation Comments Lymphocytes # (test code = Lymphocytes 3.0 1.0-5.5 #) [facility] LakewayVobbiffWRPRXRSRBT8486-94-39 16:57:00 Test Item Value Reference Range Interpretation Comments PT (test code = PT) 14.0 s 12.0-14.7 [facility] LakewayXmpbjgjJGLFKTHQJD3290-98-86 16:57:00 Test Item Value Reference Range Interpretation Comments INR (test code = INR) 1.05 0.85-1.17 [facility] LakewayQtxkhlsUAXIONZTRB2347-69-65 16:57:00 Test Item Value Reference Range Interpretation Comments PTT (test code = PTT) 30.3 s 22.9-35.8 [place] 707135-12-28 16:57:00 Test Item Value Reference Range Interpretation Comments MPV (test code = MPV) 8.9 7.4-10.4 [facility] LakewayRpjrlabUWJUUIKVON5690-31-15 16:57:00 Test Item Value Reference Range Interpretation Comments RDW (test code = RDW) 15.8 11.5-14.5 [place] 707135-12-28 16:57:00 Test Item Value Reference Range Interpretation Comments Platelet (test code = Platelet) 271 133-450 [facility] LakewayMixforsBKFVAEBTEL1444-08-61 16:57:00 Test Item Value Reference Range Interpretation Comments WBC (test code = WBC) 7.3 3.7-10.4 [facility] LakewayJslvwccTLUEWNHJIS2296-13-68 16:57:00 Test Item Value Reference Range Interpretation Comments RBC (test code = RBC) 5.14 4.20-5.40 [facility] LakewayBsklllsSWIBHTZPEB8402-02-59 16:57:00 Test Item Value Reference Range Interpretation Comments MCV (test code = MCV) 77.9 80.0-98.0 [facility] LakewaySyytjxmOWVJBJIVBG2912-03-58 16:57:00 Test Item Value Reference Range Interpretation Comments MCH (test code = MCH) 23.9 pg 27.0-31.0 [facility] LakewayHydourcUIUHQUDFKA4189-80-37 16:57:00 Test Item Value Reference Range Interpretation Comments MCHC (test code = MCHC) 30.7 32.0-36.0 [facility] LakewayGcdahvjKFUJXDLGFU8746-78-81 16:57:00 Test Item Value Reference Range Interpretation Comments Hct (test code = Hct) 40.1 36.0-48.0 [facility] LakewayYpweiatLHSKKGPMAM9946-51-38 16:57:00 Test Item Value Reference Range Interpretation Comments Hgb (test code = Hgb) 12.3 12.0-16.0 [facility]2015-12-28 16:57:00 Test Item Value Reference Range Interpretation Comments eGFR (test code = eGFR) 86 [facility]2015-12-28 16:57:00 Test Item Value Reference Range Interpretation Comments Potassium Lvl (test code = Potassium 3.6 3.5-5.1 Lvl) [facility]2015-12-28 16:57:00 Test Item Value Reference Range Interpretation Comments CO2 (test code = CO2) 27 24-32 [facility]2015-12-28 16:57:00 Test Item Value Reference Range Interpretation Comments Chloride Lvl (test code = Chloride Lvl) 103 95-109 [facility]2015-12-28 16:57:00 Test Item Value Reference Range Interpretation Comments Calcium Lvl (test code = Calcium Lvl) 9.4 8.5-10.5 [facility]2015-12-28 16:57:00 Test Item Value Reference Range Interpretation Comments AST (test code = AST) 16 See_Comment [Auto mated message] The system which ge nerated this result transmit arvind reference range : <=37. The reference range was not used to interpr et this result as mario l/abnormal. [facility]2015-12-28 16:57:00 Test Item Value Reference Range Interpretation Comments ALT (test code = ALT) 43 See_Comment [Auto mated message] The system which ge nerated this result transmit arvind reference range : <=65. The reference range was not used to interpr et this result as mario l/abnormal. [facility]2015-12-28 16:57:00 Test Item Value Reference Range Interpretation Comments Alk Phos (test code = Alk Phos) 97 39-136 [facility]2015-12-28 16:57:00 Test Item Value Reference Range Interpretation Comments Albumin Lvl (test code = Albumin Lvl) 3.6 3.5-5.0 [facility]2015-12-28 16:57:00 Test Item Value Reference Range Interpretation Comments Total Protein (test code = Total 7.3 6.4-8.4 Protein) [facility]2015-12-28 16:57:00 Test Item Value Reference Range Interpretation Comments Bili Total (test code = Bili Total) 0.4 0.2-1.3 [facility]2015-12-28 16:57:00 Test Item Value Reference Range Interpretation Comments Glucose Lvl (test code = Glucose Lvl) 95 70-99 [facility]2015-12-28 16:57:00 Test Item Value Reference Range Interpretation Comments Creatinine Lvl (test code = Creatinine 0.93 0.50-1.40 Lvl) [facility]2015-12-28 16:57:00 Test Item Value Reference Range Interpretation Comments BUN (test code = BUN) 9 - [facility]2015-12-28 16:57:00 Test Item Value Reference Range Interpretation Comments Sodium Lvl (test code = Sodium Lvl) 139 135-145 [facility]2015-12-28 16:57:00 Test Item Value Reference Range Interpretation Comments A/G Ratio (test code = A/G Ratio) 1.0 0.7-1.6 [facility]2015-12-28 16:57:00 Test Item Value Reference Range Interpretation Comments Globulin (test code = Globulin) 3.7 2.0-4.0 [facility]2015-12-28 16:57:00 Test Item Value Reference Range Interpretation Comments B/C Ratio (test code = B/C Ratio) 10 - [facility]2015-12-28 16:57:00 Test Item Value Reference Range Interpretation Comments AGAP (test code = AGAP) 12.6 10.0-20.0 [place] [id number] 16:57:00 Test Item Value Reference Range Interpretation Comments S Preg (test code = S Negative *NA*(08/26/15 Preg) 10:57 AM) [facility] LakewayOztopxqOBIKBUEWMD2572-19-77 16:57:00 Test Item Value Reference Range Interpretation Comments Eosinophils # (test code 0.4 See_Comment [A utomated message] The = Eosinophils #) system ic h generated this result tra nsmitted reference range : <=0.5. The reference r kat was not used to int erpret this result as normal/abnormal . [facility] LakewayUsarpluBHGAQUVZAM6959-12-36 16:57:00 Test Item Value Reference Range Interpretation Comments Microcyte (test code = 1+ *ABN*(08/26/15 Microcyte) 10:57 AM) [facility] LakewayOgveuwrTVGNJIAGHG0654-89-56 16:57:00 Test Item Value Reference Range Interpretation Comments Basophils # (test code 0.1 See_Comment [Aut omated message] The = Basophils #) system which generated this result tra nsmitted reference range : <=0.2. The reference r kat was not used to int erpret this result as normal/abnormal . [facility] LakewayEvywyfxWAYRXUIKNF8590-63-38 16:57:00 Test Item Value Reference Range Interpretation Comments Monocytes (test code = Monocytes) 8.6 2.0-12.0 [facility] LakewayJhwmicxDHIZNQQVVC7795-98-82 16:57:00 Test Item Value Reference Range Interpretation Comments Lymphocytes (test code = Lymphocytes) 40.6 20.0-40.0 [facility] LakewayWgnjndeXPNTNLIPTO3155-51-07 16:57:00 Test Item Value Reference Range Interpretation Comments Eosinophils (test code = 5.0 See_Comment [A utomated message] The Eosinophils) system which ge nerated this result tra nsmitted reference range : <=4.0. The reference r kat was not used to int erpret this result as normal/abnormal . [facility] LakewayUdkfjxqIFNXBKMQQE3746-70-71 16:57:00 Test Item Value Reference Range Interpretation Comments Segs (test code = Segs) 44.8 45.0-75.0 [facility] LakewayVqyluubCOANYEDMRP4152-83-36 16:57:00 Test Item Value Reference Range Interpretation Comments Basophils (test code = 1.0 See_Comment [Aut omated message] The Basophils) system which ge nerated this result tra nsmitted reference range : <=1.0. The reference r kat was not used to int erpret this result as normal/abnormal . [facility] LakewayIrlaenlHKZCLCVAIK5615-35-48 16:57:00 Test Item Value Reference Range Interpretation Comments Segs-Bands # (test code = Segs-Bands #) 3.3 1.5-8.1 [facility] LakewayOrtqisdYLOEKSJKQX6554-95-51 16:57:00 Test Item Value Reference Range Interpretation Comments Monocytes # (test code 0.6 See_Comment [Aut omated message] The = Monocytes #) system which generated this result tra nsmitted reference range : <=0.8. The reference r kat was not used to int erpret this result as normal/abnormal . [facility] LakewayHuivoqpSZJQVJCVLN8370-24-94 16:57:00 Test Item Value Reference Range Interpretation Comments Lymphocytes # (test code = Lymphocytes 3.0 1.0-5.5 #) [facility] LakewayHptmivzKKWCNUIMZC8489-46-68 16:57:00 Test Item Value Reference Range Interpretation Comments PT (test code = PT) 14.0 s 12.0-14.7 [facility] LakewayNthcdlnIAKRESTSUJ4189-34-89 16:57:00 Test Item Value Reference Range Interpretation Comments INR (test code = INR) 1.05 0.85-1.17 [facility] LakewayQhucprxAKZNZRPJAD8030-31-74 16:57:00 Test Item Value Reference Range Interpretation Comments PTT (test code = PTT) 30.3 s 22.9-35.8 [facility] LakewayAyrrgyfECGKCJXUCR1307-21-94 16:57:00 Test Item Value Reference Range Interpretation Comments MPV (test code = MPV) 8.9 7.4-10.4 [place] 707135-12-28 16:57:00 Test Item Value Reference Range Interpretation Comments RDW (test code = RDW) 15.8 11.5-14.5 [facility] LakewayWaxbnsgLUQBZCHLOY1775-58-42 16:57:00 Test Item Value Reference Range Interpretation Comments Platelet (test code = Platelet) 271 133-450 [facility] LakewayEtmdgrfFCSLFTGTMM2212-22-23 16:57:00 Test Item Value Reference Range Interpretation Comments WBC (test code = WBC) 7.3 3.7-10.4 [facility] LakewayCijyoxtWHWBGTOOQD6170-62-42 16:57:00 Test Item Value Reference Range Interpretation Comments RBC (test code = RBC) 5.14 4.20-5.40 [facility] LakewayLtqxsdkFPCPSOBUPW5524-76-00 16:57:00 Test Item Value Reference Range Interpretation Comments MCV (test code = MCV) 77.9 80.0-98.0 [facility] LakewayQmmyrtgNOPADHMCBE1071-62-81 16:57:00 Test Item Value Reference Range Interpretation Comments MCH (test code = MCH) 23.9 pg 27.0-31.0 [facility] LakewayYbmwdicMSTHHGKRIJ5969-65-13 16:57:00 Test Item Value Reference Range Interpretation Comments MCHC (test code = MCHC) 30.7 32.0-36.0 [facility] LakewayAenxuaaMQTRPYYTCL2629-69-30 16:57:00 Test Item Value Reference Range Interpretation Comments Hct (test code = Hct) 40.1 36.0-48.0 [facility] LakewayWytattvJECWXPDNNV0592-24-52 16:57:00 Test Item Value Reference Range Interpretation Comments Hgb (test code = Hgb) 12.3 12.0-16.0 [facility]2015-12-28 16:57:00 Test Item Value Reference Range Interpretation Comments eGFR (test code = eGFR) 86 [facility]2015-12-28 16:57:00 Test Item Value Reference Range Interpretation Comments Potassium Lvl (test code = Potassium 3.6 3.5-5.1 Lvl) [facility]2015-12-28 16:57:00 Test Item Value Reference Range Interpretation Comments CO2 (test code = CO2) 27 24-32 [place] 753435-12-28 16:57:00 Test Item Value Reference Range Interpretation Comments Chloride Lvl (test code = Chloride Lvl) 103 95-109 [facility]2015-12-28 16:57:00 Test Item Value Reference Range Interpretation Comments Calcium Lvl (test code = Calcium Lvl) 9.4 8.5-10.5 [facility]2015-12-28 16:57:00 Test Item Value Reference Range Interpretation Comments AST (test code = AST) 16 See_Comment [Auto mated message] The system which ge nerated this result transmit arvind reference range : <=37. The reference range was not used to interpr et this result as mario l/abnormal. [facility]2015-12-28 16:57:00 Test Item Value Reference Range Interpretation Comments ALT (test code = ALT) 43 See_Comment [Auto mated message] The system which ge nerated this result transmit arvind reference range : <=65. The reference range was not used to interpr et this result as mario l/abnormal. [facility]2015-12-28 16:57:00 Test Item Value Reference Range Interpretation Comments Alk Phos (test code = Alk Phos) 97 39-136 [facility]2015-12-28 16:57:00 Test Item Value Reference Range Interpretation Comments Albumin Lvl (test code = Albumin Lvl) 3.6 3.5-5.0 [facility]2015-12-28 16:57:00 Test Item Value Reference Range Interpretation Comments Total Protein (test code = Total 7.3 6.4-8.4 Protein) [facility]2015-12-28 16:57:00 Test Item Value Reference Range Interpretation Comments Bili Total (test code = Bili Total) 0.4 0.2-1.3 [facility]2015-12-28 16:57:00 Test Item Value Reference Range Interpretation Comments Glucose Lvl (test code = Glucose Lvl) 95 70-99 [facility]2015-12-28 16:57:00 Test Item Value Reference Range Interpretation Comments Creatinine Lvl (test code = Creatinine 0.93 0.50-1.40 Lvl) [facility]2015-12-28 16:57:00 Test Item Value Reference Range Interpretation Comments BUN (test code = BUN) 9 7- [facility]2015-12-28 16:57:00 Test Item Value Reference Range Interpretation Comments Sodium Lvl (test code = Sodium Lvl) 139 135-145 [facility]2015-12-28 16:57:00 Test Item Value Reference Range Interpretation Comments A/G Ratio (test code = A/G Ratio) 1.0 0.7-1.6 [facility]2015-12-28 16:57:00 Test Item Value Reference Range Interpretation Comments Globulin (test code = Globulin) 3.7 2.0-4.0 [facility]2015-12-28 16:57:00 Test Item Value Reference Range Interpretation Comments B/C Ratio (test code = B/C Ratio) 10 - [facility]2015-12-28 16:57:00 Test Item Value Reference Range Interpretation Comments AGAP (test code = AGAP) 12.6 10.0-20.0 [place] [id number] 16:57:00 Test Item Value Reference Range Interpretation Comments S Preg (test code = S Negative *NA*(08/26/15 Preg) 10:57 AM) [facility]HxmcgqsNJRQWFSEYT3813-79-30 16:57:00 Test Item Value Reference Range Interpretation Comments Eosinophils # (test code 0.4 See_Comment [A utomated message] The = Eosinophils #) system whic h generated this result tra nsmitted reference range : <=0.5. The reference r kat was not used to int erpret this result as normal/abnormal . [facility] LakewayYtrwiqsSMEWURUACM8951-91-99 16:57:00 Test Item Value Reference Range Interpretation Comments Microcyte (test code = 1+ *ABN*(08/26/15 Microcyte) 10:57 AM) [facility] LakewaySufvtcoSEZDHZJDWY8307-45-59 16:57:00 Test Item Value Reference Range Interpretation Comments Basophils # (test code 0.1 See_Comment [Aut omated message] The = Basophils #) system which generated this result tra nsmitted reference range : <=0.2. The reference r kat was not used to int erpret this result as normal/abnormal . [facility] LakewayVizmvyiAJHGBYIAYQ6893-19-15 16:57:00 Test Item Value Reference Range Interpretation Comments Monocytes (test code = Monocytes) 8.6 2.0-12.0 [facility] LakewayFhmiwygJGNXXLREYU5004-72-12 16:57:00 Test Item Value Reference Range Interpretation Comments Lymphocytes (test code = Lymphocytes) 40.6 20.0-40.0 [facility] LakewaySittaisPYJRPLWMWI3693-74-25 16:57:00 Test Item Value Reference Range Interpretation Comments Eosinophils (test code = 5.0 See_Comment [A utomated message] The Eosinophils) system which ge nerated this result tra nsmitted reference range : <=4.0. The reference r kat was not used to int erpret this result as normal/abnormal . [facility] LakewayCmxixhhIKHGIIJPUB2402-47-12 16:57:00 Test Item Value Reference Range Interpretation Comments Segs (test code = Segs) 44.8 45.0-75.0 [facility] LakewayVfwquxcAUTTVPWJRX7490-18-15 16:57:00 Test Item Value Reference Range Interpretation Comments Basophils (test code = 1.0 See_Comment [Aut omated message] The Basophils) system which ge nerated this result tra nsmitted reference range : <=1.0. The reference r kat was not used to int erpret this result as normal/abnormal . [facility] LakewayXsjviauPJRZKZTDZJ7685-34-46 16:57:00 Test Item Value Reference Range Interpretation Comments Segs-Bands # (test code = Segs-Bands #) 3.3 1.5-8.1 [facility] LakewayVqsbjibXLGYELZIKW4831-05-96 16:57:00 Test Item Value Reference Range Interpretation Comments Monocytes # (test code 0.6 See_Comment [Aut omated message] The = Monocytes #) system which generated this result tra nsmitted reference range : <=0.8. The reference r kat was not used to int erpret this result as normal/abnormal . [facility] LakewayPwujxohTLQUKQEBJW3026-84-44 16:57:00 Test Item Value Reference Range Interpretation Comments Lymphocytes # (test code = Lymphocytes 3.0 1.0-5.5 #) [facility] LakewayKhiffcdNBZRXISVUJ2177-15-18 16:57:00 Test Item Value Reference Range Interpretation Comments PT (test code = PT) 14.0 s 12.0-14.7 [facility] LakewayHbadrhiUHKBIYZLSW7880-26-59 16:57:00 Test Item Value Reference Range Interpretation Comments INR (test code = INR) 1.05 0.85-1.17 [facility] LakewayThtdjilPZEQYERVNQ6121-25-98 16:57:00 Test Item Value Reference Range Interpretation Comments PTT (test code = PTT) 30.3 s 22.9-35.8 [facility] LakewayQvxkoohRQHBNALHBL7835-11-89 16:57:00 Test Item Value Reference Range Interpretation Comments MPV (test code = MPV) 8.9 7.4-10.4 [facility] LakewayAnopygzPWZMMLGXZL9612-14-14 16:57:00 Test Item Value Reference Range Interpretation Comments RDW (test code = RDW) 15.8 11.5-14.5 [facility] LakewayQmwsybfPOGOUWOHNE0868-26-98 16:57:00 Test Item Value Reference Range Interpretation Comments Platelet (test code = Platelet) 271 133-450 [facility] LakewayKghcknaKVTSXVBBJD1333-36-44 16:57:00 Test Item Value Reference Range Interpretation Comments WBC (test code = WBC) 7.3 3.7-10.4 [facility] LakewayKaxylgqLWRGTSXTUZ9341-30-06 16:57:00 Test Item Value Reference Range Interpretation Comments RBC (test code = RBC) 5.14 4.20-5.40 [facility] LakewayYfluwbjVGPQTYWIJL1880-77-39 16:57:00 Test Item Value Reference Range Interpretation Comments MCV (test code = MCV) 77.9 80.0-98.0 [facility] LakewayFgpimlkYCEPNZVEDP8875-19-15 16:57:00 Test Item Value Reference Range Interpretation Comments MCH (test code = MCH) 23.9 pg 27.0-31.0 [facility] LakewayYhixunzAPCHCVNKEJ9279-49-83 16:57:00 Test Item Value Reference Range Interpretation Comments MCHC (test code = MCHC) 30.7 32.0-36.0 [facility] LakewayGakjyhpUQLOJAAKIX6774-84-87 16:57:00 Test Item Value Reference Range Interpretation Comments Hct (test code = Hct) 40.1 36.0-48.0 [facility] CenterJuyvfvvWJNXHKQLIP9645-48-46 16:57:00 Test Item Value Reference Range Interpretation Comments Hgb (test code = Hgb) 12.3 12.0-16.0 [facility]2015-12-28 16:57:00 Test Item Value Reference Range Interpretation Comments eGFR (test code = eGFR) 86 [facility]2015-12-28 16:57:00 Test Item Value Reference Range Interpretation Comments Potassium Lvl (test code = Potassium 3.6 3.5-5.1 Lvl) [facility]2015-12-28 16:57:00 Test Item Value Reference Range Interpretation Comments CO2 (test code = CO2) 27 24-32 [facility]2015-12-28 16:57:00 Test Item Value Reference Range Interpretation Comments Chloride Lvl (test code = Chloride Lvl) 103 95-109 [facility]2015-12-28 16:57:00 Test Item Value Reference Range Interpretation Comments Calcium Lvl (test code = Calcium Lvl) 9.4 8.5-10.5 [facility]2015-12-28 16:57:00 Test Item Value Reference Range Interpretation Comments AST (test code = AST) 16 See_Comment [Auto mated message] The system which ge nerated this result transmit arvind reference range : <=37. The reference range was not used to interpr et this result as mario l/abnormal. [facility]2015-12-28 16:57:00 Test Item Value Reference Range Interpretation Comments ALT (test code = ALT) 43 See_Comment [Auto mated message] The system which ge nerated this result transmit arvidn reference range : <=65. The reference range was not used to interpr et this result as mario l/abnormal. [facility]2015-12-28 16:57:00 Test Item Value Reference Range Interpretation Comments Alk Phos (test code = Alk Phos) 97 39-136 [facility]2015-12-28 16:57:00 Test Item Value Reference Range Interpretation Comments Albumin Lvl (test code = Albumin Lvl) 3.6 3.5-5.0 [facility]2015-12-28 16:57:00 Test Item Value Reference Range Interpretation Comments Total Protein (test code = Total 7.3 6.4-8.4 Protein) [facility]2015-12-28 16:57:00 Test Item Value Reference Range Interpretation Comments Bili Total (test code = Bili Total) 0.4 0.2-1.3 [facility]2015-12-28 16:57:00 Test Item Value Reference Range Interpretation Comments Glucose Lvl (test code = Glucose Lvl) 95 70-99 [facility]2015-12-28 16:57:00 Test Item Value Reference Range Interpretation Comments Creatinine Lvl (test code = Creatinine 0.93 0.50-1.40 Lvl) [facility]2015-12-28 16:57:00 Test Item Value Reference Range Interpretation Comments BUN (test code = BUN) 9 - [facility]2015-12-28 16:57:00 Test Item Value Reference Range Interpretation Comments Sodium Lvl (test code = Sodium Lvl) 139 135-145 [facility]2015-12-28 16:57:00 Test Item Value Reference Range Interpretation Comments A/G Ratio (test code = A/G Ratio) 1.0 0.7-1.6 [facility]2015-12-28 16:57:00 Test Item Value Reference Range Interpretation Comments Globulin (test code = Globulin) 3.7 2.0-4.0 [facility]2015-12-28 16:57:00 Test Item Value Reference Range Interpretation Comments B/C Ratio (test code = B/C Ratio) 10 - [facility]2015-12-28 16:57:00 Test Item Value Reference Range Interpretation Comments AGAP (test code = AGAP) 12.6 10.0-20.0 [facility] CenterIvfrrpfQISBEEIQTMIVZ7729-62-91 16:57:00 Test Item Value Reference Range Interpretation Comments S Preg (test code = S Negative *NA*(08/26/15 Preg) 10:57 AM) [facility] LakewayZzyzensAWTBDWWXZQ3176-38-06 16:57:00 Test Item Value Reference Range Interpretation Comments Eosinophils # (test code 0.4 See_Comment [A utomated message] The = Eosinophils #) system the medical center h generated this result tra nsmitted reference range : <=0.5. The reference r kat was not used to int erpret this result as normal/abnormal . [facility] LakewayByvwzmzMJIXIZZQGR3331-85-79 16:57:00 Test Item Value Reference Range Interpretation Comments Microcyte (test code = 1+ *ABN*(08/26/15 Microcyte) 10:57 AM) [facility] LakewayCvlhcuvLXTRMEFSJH7055-68-65 16:57:00 Test Item Value Reference Range Interpretation Comments Basophils # (test code 0.1 See_Comment [Aut omated message] The = Basophils #) system which generated this result tra nsmitted reference range : <=0.2. The reference r kat was not used to int erpret this result as normal/abnormal . [facility] LakewayDbfyepiVGUDRNRXEF0491-51-54 16:57:00 Test Item Value Reference Range Interpretation Comments Monocytes (test code = Monocytes) 8.6 2.0-12.0 [place] 707135-12-28 16:57:00 Test Item Value Reference Range Interpretation Comments Lymphocytes (test code = Lymphocytes) 40.6 20.0-40.0 [facility] LakewayEhflyhaTJKAQRADPQ1340-57-14 16:57:00 Test Item Value Reference Range Interpretation Comments Eosinophils (test code = 5.0 See_Comment [A utomated message] The Eosinophils) system which ge nerated this result tra nsmitted reference range : <=4.0. The reference r kat was not used to int erpret this result as normal/abnormal . [facility] LakewayFpdxpgiJFXDECWKGH9877-12-19 16:57:00 Test Item Value Reference Range Interpretation Comments Segs (test code = Segs) 44.8 45.0-75.0 [facility] LakewayPrioobhKOMPTHEORB2070-13-24 16:57:00 Test Item Value Reference Range Interpretation Comments Basophils (test code = 1.0 See_Comment [Aut omated message] The Basophils) system which ge nerated this result tra nsmitted reference range : <=1.0. The reference r kat was not used to int erpret this result as normal/abnormal . [facility] LakewayRdxrpoyZRZBGFBSJS9129-02-52 16:57:00 Test Item Value Reference Range Interpretation Comments Segs-Bands # (test code = Segs-Bands #) 3.3 1.5-8.1 [facility] LakewayWrsrubbSJEGKSMFBA3349-06-82 16:57:00 Test Item Value Reference Range Interpretation Comments Monocytes # (test code 0.6 See_Comment [Aut omated message] The = Monocytes #) system which generated this result tra nsmitted reference range : <=0.8. The reference r kat was not used to int erpret this result as normal/abnormal . [facility] LakewaySacojogTTXTDJSUWS1872-92-67 16:57:00 Test Item Value Reference Range Interpretation Comments Lymphocytes # (test code = Lymphocytes 3.0 1.0-5.5 #) [facility] LakewayQncldhcSRNMHQSKLF0782-89-23 16:57:00 Test Item Value Reference Range Interpretation Comments PT (test code = PT) 14.0 s 12.0-14.7 [facility] LakewayStsxltaOZGCVSDCVB8512-87-38 16:57:00 Test Item Value Reference Range Interpretation Comments INR (test code = INR) 1.05 0.85-1.17 [facility] LakewayWadxzyoBEWTPWUQUN6796-42-29 16:57:00 Test Item Value Reference Range Interpretation Comments PTT (test code = PTT) 30.3 s 22.9-35.8 [facility] LakewayOdhtdrnDOEDKKMCXJ3956-67-93 16:57:00 Test Item Value Reference Range Interpretation Comments MPV (test code = MPV) 8.9 7.4-10.4 [facility] LakewaySldglqtKEHFDFUMFO5450-85-10 16:57:00 Test Item Value Reference Range Interpretation Comments RDW (test code = RDW) 15.8 11.5-14.5 [facility] LakewayLosskojNXYUSRHZUI1904-54-25 16:57:00 Test Item Value Reference Range Interpretation Comments Platelet (test code = Platelet) 271 133-450 [facility] LakewayPnbcobjZTORXBFBZY6697-42-27 16:57:00 Test Item Value Reference Range Interpretation Comments WBC (test code = WBC) 7.3 3.7-10.4 [facility] LakewayMcgnkwpKLXWRVZYDI3870-76-31 16:57:00 Test Item Value Reference Range Interpretation Comments RBC (test code = RBC) 5.14 4.20-5.40 [facility] LakewayKzmvlnlENCBSTAKMU6523-41-71 16:57:00 Test Item Value Reference Range Interpretation Comments MCV (test code = MCV) 77.9 80.0-98.0 [facility] LakewayIovgdfeTFIFTOWNEC3436-83-54 16:57:00 Test Item Value Reference Range Interpretation Comments MCH (test code = MCH) 23.9 pg 27.0-31.0 [facility] LakewayOheqnmhWKDOOZVRMM2498-94-64 16:57:00 Test Item Value Reference Range Interpretation Comments MCHC (test code = MCHC) 30.7 32.0-36.0 [facility] LakewayWsdvpnjPTOODLQKFK3421-67-56 16:57:00 Test Item Value Reference Range Interpretation Comments Hct (test code = Hct) 40.1 36.0-48.0 [facility] LakewayIvyckidCJSWIYQZVU8668-60-32 16:57:00 Test Item Value Reference Range Interpretation Comments Hgb (test code = Hgb) 12.3 12.0-16.0 [facility]2015-12-28 16:57:00 Test Item Value Reference Range Interpretation Comments eGFR (test code = eGFR) 86 [facility]2015-12-28 16:57:00 Test Item Value Reference Range Interpretation Comments Potassium Lvl (test code = Potassium 3.6 3.5-5.1 Lvl) [facility]2015-12-28 16:57:00 Test Item Value Reference Range Interpretation Comments CO2 (test code = CO2) 27 24-32 [facility]2015-12-28 16:57:00 Test Item Value Reference Range Interpretation Comments Chloride Lvl (test code = Chloride Lvl) 103 95-109 [facility]2015-12-28 16:57:00 Test Item Value Reference Range Interpretation Comments Calcium Lvl (test code = Calcium Lvl) 9.4 8.5-10.5 [facility]2015-12-28 16:57:00 Test Item Value Reference Range Interpretation Comments AST (test code = AST) 16 See_Comment [Auto mated message] The system which ge nerated this result transmit arvind reference range : <=37. The reference range was not used to interpr et this result as mario l/abnormal. [facility]2015-12-28 16:57:00 Test Item Value Reference Range Interpretation Comments ALT (test code = ALT) 43 See_Comment [Auto mated message] The system which ge nerated this result transmit arvind reference range : <=65. The reference range was not used to interpr et this result as mario l/abnormal. [place] 753435-12-28 16:57:00 Test Item Value Reference Range Interpretation Comments Alk Phos (test code = Alk Phos) 97 39-136 [facility]2015-12-28 16:57:00 Test Item Value Reference Range Interpretation Comments Albumin Lvl (test code = Albumin Lvl) 3.6 3.5-5.0 [facility]2015-12-28 16:57:00 Test Item Value Reference Range Interpretation Comments Total Protein (test code = Total 7.3 6.4-8.4 Protein) [facility]2015-12-28 16:57:00 Test Item Value Reference Range Interpretation Comments Bili Total (test code = Bili Total) 0.4 0.2-1.3 [facility]2015-12-28 16:57:00 Test Item Value Reference Range Interpretation Comments Glucose Lvl (test code = Glucose Lvl) 95 70-99 [facility]2015-12-28 16:57:00 Test Item Value Reference Range Interpretation Comments Creatinine Lvl (test code = Creatinine 0.93 0.50-1.40 Lvl) [facility]2015-12-28 16:57:00 Test Item Value Reference Range Interpretation Comments BUN (test code = BUN) 9 - [facility]2015-12-28 16:57:00 Test Item Value Reference Range Interpretation Comments Sodium Lvl (test code = Sodium Lvl) 139 135-145 [facility]2015-12-28 16:57:00 Test Item Value Reference Range Interpretation Comments A/G Ratio (test code = A/G Ratio) 1.0 0.7-1.6 [facility]2015-12-28 16:57:00 Test Item Value Reference Range Interpretation Comments Globulin (test code = Globulin) 3.7 2.0-4.0 [facility]2015-12-28 16:57:00 Test Item Value Reference Range Interpretation Comments B/C Ratio (test code = B/C Ratio) 10 - [facility]2015-12-28 16:57:00 Test Item Value Reference Range Interpretation Comments AGAP (test code = AGAP) 12.6 10.0-20.0 [facility]LexkockCAFARQWSWFAYD0241-20-99 16:57:00 Test Item Value Reference Range Interpretation Comments S Preg (test code = S Negative *NA*(08/26/15 Preg) 10:57 AM) [facility] LakewayLhxziiqLHVKJKWNNO4225-30-49 16:57:00 Test Item Value Reference Range Interpretation Comments Eosinophils # (test code 0.4 See_Comment [A utomated message] The = Eosinophils #) system whic h generated this result tra nsmitted reference range : <=0.5. The reference r kat was not used to int erpret this result as normal/abnormal . [facility] LakewayBxfbgpyWMPINBUFKD2130-39-23 16:57:00 Test Item Value Reference Range Interpretation Comments Microcyte (test code = 1+ *ABN*(08/26/15 Microcyte) 10:57 AM) [facility] LakewayCbetaytJBJYBWCJZB7177-79-79 16:57:00 Test Item Value Reference Range Interpretation Comments Basophils # (test code 0.1 See_Comment [Aut omated message] The = Basophils #) system which generated this result tra nsmitted reference range : <=0.2. The reference r kat was not used to int erpret this result as normal/abnormal . [facility] LakewayDofkaryXFHVELHBRP8593-14-35 16:57:00 Test Item Value Reference Range Interpretation Comments Monocytes (test code = Monocytes) 8.6 2.0-12.0 [facility] LakewayYpsfzpsLUASRFMFXY2759-35-40 16:57:00 Test Item Value Reference Range Interpretation Comments Lymphocytes (test code = Lymphocytes) 40.6 20.0-40.0 [facility] LakewayAcgjmjgXNTDILPSYM9397-59-45 16:57:00 Test Item Value Reference Range Interpretation Comments Eosinophils (test code = 5.0 See_Comment [A utomated message] The Eosinophils) system which ge nerated this result tra nsmitted reference range : <=4.0. The reference r kat was not used to int erpret this result as normal/abnormal . [facility] LakewayFuscfjqCJOBAYZQUV5791-35-15 16:57:00 Test Item Value Reference Range Interpretation Comments Segs (test code = Segs) 44.8 45.0-75.0 [facility] LakewayQflsvdnWMZAKEPMKK9665-78-01 16:57:00 Test Item Value Reference Range Interpretation Comments Basophils (test code = 1.0 See_Comment [Aut omated message] The Basophils) system which ge nerated this result tra nsmitted reference range : <=1.0. The reference r kta was not used to int erpret this result as normal/abnormal . [facility] LakewayBorideaEUOKBDWFVU2878-04-86 16:57:00 Test Item Value Reference Range Interpretation Comments Segs-Bands # (test code = Segs-Bands #) 3.3 1.5-8.1 [facility] LakewayLbtbdpfHATQWOVDLC4361-70-94 16:57:00 Test Item Value Reference Range Interpretation Comments Monocytes # (test code 0.6 See_Comment [Aut omated message] The = Monocytes #) system which generated this result tra nsmitted reference range : <=0.8. The reference r kat was not used to int erpret this result as normal/abnormal . [facility] LakewayPclndyzQGKVMPGUXT3328-85-73 16:57:00 Test Item Value Reference Range Interpretation Comments Lymphocytes # (test code = Lymphocytes 3.0 1.0-5.5 #) [facility] LakewayLdvpnabDZUZWKYJRB9811-33-58 16:57:00 Test Item Value Reference Range Interpretation Comments PT (test code = PT) 14.0 s 12.0-14.7 [facility] LakewayQoqdiwaPYPGYFPMSN3794-47-00 16:57:00 Test Item Value Reference Range Interpretation Comments INR (test code = INR) 1.05 0.85-1.17 [facility] LakewayAgcuvvxRLZCYMBCSI1696-99-02 16:57:00 Test Item Value Reference Range Interpretation Comments PTT (test code = PTT) 30.3 s 22.9-35.8 [facility] LakewayJefivmpJVIYCHOCDK7765-86-45 16:57:00 Test Item Value Reference Range Interpretation Comments MPV (test code = MPV) 8.9 7.4-10.4 [facility] LakewayAoiezjhWZKWDDVIFW6989-15-45 16:57:00 Test Item Value Reference Range Interpretation Comments RDW (test code = RDW) 15.8 11.5-14.5 [facility] LakewayGjcreiiIHUCKWJPOV1360-61-07 16:57:00 Test Item Value Reference Range Interpretation Comments Platelet (test code = Platelet) 271 133-450 [facility] LakewayEsgxzblDXTAJLTINA3779-18-82 16:57:00 Test Item Value Reference Range Interpretation Comments WBC (test code = WBC) 7.3 3.7-10.4 [facility] LakewayIbfqnpjBCXJJNLERO0961-62-30 16:57:00 Test Item Value Reference Range Interpretation Comments RBC (test code = RBC) 5.14 4.20-5.40 [facility] LakewayCpcmsdjWNVLCITROL7660-17-40 16:57:00 Test Item Value Reference Range Interpretation Comments MCV (test code = MCV) 77.9 80.0-98.0 [facility] LakewayOyoxrbwXVPRBVPXFQ3208-50-38 16:57:00 Test Item Value Reference Range Interpretation Comments MCH (test code = MCH) 23.9 pg 27.0-31.0 [facility] LakewaySfbrwbnPXMXWIHRNB6160-32-33 16:57:00 Test Item Value Reference Range Interpretation Comments MCHC (test code = MCHC) 30.7 32.0-36.0 [facility] LakewayIrwhihyTKOABFRSRL4446-97-81 16:57:00 Test Item Value Reference Range Interpretation Comments Hct (test code = Hct) 40.1 36.0-48.0 [facility] LakewayTpacpxiVCULEAGINJ8642-03-28 16:57:00 Test Item Value Reference Range Interpretation Comments Hgb (test code = Hgb) 12.3 12.0-16.0 [facility] [facility]2015-12-28 16:57:00 Test Item Value Reference Range Interpretation Comments eGFR (test code = eGFR) 86 [facility]2015-12-28 16:57:00 Test Item Value Reference Range Interpretation Comments Potassium Lvl (test code = Potassium 3.6 3.5-5.1 Lvl) [facility]2015-12-28 16:57:00 Test Item Value Reference Range Interpretation Comments CO2 (test code = CO2) 27 24-32 [facility]2015-12-28 16:57:00 Test Item Value Reference Range Interpretation Comments Chloride Lvl (test code = Chloride Lvl) 103 95-109 [facility]2015-12-28 16:57:00 Test Item Value Reference Range Interpretation Comments Calcium Lvl (test code = Calcium Lvl) 9.4 8.5-10.5 [facility]2015-12-28 16:57:00 Test Item Value Reference Range Interpretation Comments AST (test code = AST) 16 See_Comment [Auto mated message] The system which ge nerated this result transmit arvind reference range : <=37. The reference range was not used to interpr et this result as mario l/abnormal. [facility]2015-12-28 16:57:00 Test Item Value Reference Range Interpretation Comments ALT (test code = ALT) 43 See_Comment [Auto mated message] The system which ge nerated this result transmit arvind reference range : <=65. The reference range was not used to interpr et this result as mario l/abnormal. [facility]2015-12-28 16:57:00 Test Item Value Reference Range Interpretation Comments Alk Phos (test code = Alk Phos) 97 39-136 [facility]2015-12-28 16:57:00 Test Item Value Reference Range Interpretation Comments Albumin Lvl (test code = Albumin Lvl) 3.6 3.5-5.0 [facility]2015-12-28 16:57:00 Test Item Value Reference Range Interpretation Comments Total Protein (test code = Total 7.3 6.4-8.4 Protein) [facility]2015-12-28 16:57:00 Test Item Value Reference Range Interpretation Comments Bili Total (test code = Bili Total) 0.4 0.2-1.3 [facility]2015-12-28 16:57:00 Test Item Value Reference Range Interpretation Comments Glucose Lvl (test code = Glucose Lvl) 95 70-99 [facility]2015-12-28 16:57:00 Test Item Value Reference Range Interpretation Comments Creatinine Lvl (test code = Creatinine 0.93 0.50-1.40 Lvl) [facility]2015-12-28 16:57:00 Test Item Value Reference Range Interpretation Comments BUN (test code = BUN) 9 7-22 [facility]2015-12-28 16:57:00 Test Item Value Reference Range Interpretation Comments Sodium Lvl (test code = Sodium Lvl) 139 135-145 [facility]2015-12-28 16:57:00 Test Item Value Reference Range Interpretation Comments A/G Ratio (test code = A/G Ratio) 1.0 0.7-1.6 [facility]2015-12-28 16:57:00 Test Item Value Reference Range Interpretation Comments Globulin (test code = Globulin) 3.7 2.0-4.0 [facility]2015-12-28 16:57:00 Test Item Value Reference Range Interpretation Comments B/C Ratio (test code = B/C Ratio) 10 6-25 [facility]2015-12-28 16:57:00 Test Item Value Reference Range Interpretation Comments AGAP (test code = AGAP) 12.6 10.0-20.0 [facility]LrwfgfxGTVLUBEZPJBPE8098-09-62 16:57:00 Test Item Value Reference Range Interpretation Comments S Preg (test code = S Negative *NA*(08/26/15 Preg) 10:57 AM) [facility]wayCulzmlvMUDORGLNGG4813-00-39 16:57:00 Test Item Value Reference Range Interpretation Comments Eosinophils # (test code 0.4 See_Comment [A utomated message] The = Eosinophils #) system whic h generated this result tra nsmitted reference range : <=0.5. The reference r kat was not used to int erpret this result as normal/abnormal . [facility] LakewayGcvfashIQJDAHKHGN3497-47-40 16:57:00 Test Item Value Reference Range Interpretation Comments Microcyte (test code = 1+ *ABN*(08/26/15 Microcyte) 10:57 AM) [facility] LakewayYpjihwvNOFEIAPHZN9405-70-19 16:57:00 Test Item Value Reference Range Interpretation Comments Basophils # (test code 0.1 See_Comment [Aut omated message] The = Basophils #) system which generated this result tra nsmitted reference range : <=0.2. The reference r kat was not used to int erpret this result as normal/abnormal . [facility] LakewayBwbhragLNCJGIJRFS4499-22-61 16:57:00 Test Item Value Reference Range Interpretation Comments Monocytes (test code = Monocytes) 8.6 2.0-12.0 [facility] LakewayEwpxquuSUSWQQUPNV9811-08-42 16:57:00 Test Item Value Reference Range Interpretation Comments Lymphocytes (test code = Lymphocytes) 40.6 20.0-40.0 [facility] LakewayOeoudqhXDTBJWCEWS9344-63-59 16:57:00 Test Item Value Reference Range Interpretation Comments Eosinophils (test code = 5.0 See_Comment [A utomated message] The Eosinophils) system which ge nerated this result tra nsmitted reference range : <=4.0. The reference r kat was not used to int erpret this result as normal/abnormal . [facility] LakewayDqbfgdjGCIRANMILN1994-81-96 16:57:00 Test Item Value Reference Range Interpretation Comments Segs (test code = Segs) 44.8 45.0-75.0 [facility] LakewayMwhrcweXDLREZUAGX8104-63-95 16:57:00 Test Item Value Reference Range Interpretation Comments Basophils (test code = 1.0 See_Comment [Aut omated message] The Basophils) system which ge nerated this result tra nsmitted reference range : <=1.0. The reference r kat was not used to int erpret this result as normal/abnormal . [facility] LakewayLdshapbWQVMMQRGJK2704-60-15 16:57:00 Test Item Value Reference Range Interpretation Comments Segs-Bands # (test code = Segs-Bands #) 3.3 1.5-8.1 [facility] LakewayCudgttaLRGAJZYZLW4521-44-26 16:57:00 Test Item Value Reference Range Interpretation Comments Monocytes # (test code 0.6 See_Comment [Aut omated message] The = Monocytes #) system which generated this result tra nsmitted reference range : <=0.8. The reference r kat was not used to int erpret this result as normal/abnormal . [facility] LakewayCkjvzzhPGJQHMHMOZ9924-91-09 16:57:00 Test Item Value Reference Range Interpretation Comments Lymphocytes # (test code = Lymphocytes 3.0 1.0-5.5 #) [facility] LakewayYerxfbjDHUJRNRDZS8429-44-55 16:57:00 Test Item Value Reference Range Interpretation Comments PT (test code = PT) 14.0 s 12.0-14.7 [facility] LakewayHrynillQSRHGWEPDE0835-22-73 16:57:00 Test Item Value Reference Range Interpretation Comments INR (test code = INR) 1.05 0.85-1.17 [facility] LakewayLzxlljdUCSGNSBPNA6506-11-44 16:57:00 Test Item Value Reference Range Interpretation Comments PTT (test code = PTT) 30.3 s 22.9-35.8 [facility] LakewayBiotrrbDZULYQDIIO4745-84-11 16:57:00 Test Item Value Reference Range Interpretation Comments MPV (test code = MPV) 8.9 7.4-10.4 [facility] LakewayEqohgtcWIEJXDOLSE1133-99-19 16:57:00 Test Item Value Reference Range Interpretation Comments RDW (test code = RDW) 15.8 11.5-14.5 [facility] LakewayHlkexfwKNYUTYHCZI7252-75-32 16:57:00 Test Item Value Reference Range Interpretation Comments Platelet (test code = Platelet) 271 133-450 [facility] LakewayMuteojvQJUAEMQXYV1353-73-37 16:57:00 Test Item Value Reference Range Interpretation Comments WBC (test code = WBC) 7.3 3.7-10.4 [facility] LakewayJucifuyOEJECGWIJS7141-17-43 16:57:00 Test Item Value Reference Range Interpretation Comments RBC (test code = RBC) 5.14 4.20-5.40 [facility] LakewayIyuarcyIDRPMGBWGM2730-09-05 16:57:00 Test Item Value Reference Range Interpretation Comments MCV (test code = MCV) 77.9 80.0-98.0 [facility] LakewayRwczrmtYKQBNKILEN6109-00-31 16:57:00 Test Item Value Reference Range Interpretation Comments MCH (test code = MCH) 23.9 pg 27.0-31.0 [facility] LakewayPnlyqxwRRLJHXQOUH6049-55-72 16:57:00 Test Item Value Reference Range Interpretation Comments MCHC (test code = MCHC) 30.7 32.0-36.0 [facility] LakewayFhjgovxMDXQAGKCUR7427-21-25 16:57:00 Test Item Value Reference Range Interpretation Comments Hct (test code = Hct) 40.1 36.0-48.0 [facility] LakewayHnytgtqCGGGUHMKNI0471-86-87 16:57:00 Test Item Value Reference Range Interpretation Comments Hgb (test code = Hgb) 12.3 12.0-16.0 [facility]2015-12-28 16:57:00 Test Item Value Reference Range Interpretation Comments eGFR (test code = eGFR) 86 [facility]2015-12-28 16:57:00 Test Item Value Reference Range Interpretation Comments Potassium Lvl (test code = Potassium 3.6 3.5-5.1 Lvl) [facility]2015-12-28 16:57:00 Test Item Value Reference Range Interpretation Comments CO2 (test code = CO2) 27 24-32 [facility]2015-12-28 16:57:00 Test Item Value Reference Range Interpretation Comments Chloride Lvl (test code = Chloride Lvl) 103 95-109 [facility]2015-12-28 16:57:00 Test Item Value Reference Range Interpretation Comments Calcium Lvl (test code = Calcium Lvl) 9.4 8.5-10.5 [facility]2015-12-28 16:57:00 Test Item Value Reference Range Interpretation Comments AST (test code = AST) 16 See_Comment [Auto mated message] The system which ge nerated this result transmit arvind reference range : <=37. The reference range was not used to interpr et this result as mario l/abnormal. [facility]2015-12-28 16:57:00 Test Item Value Reference Range Interpretation Comments ALT (test code = ALT) 43 See_Comment [Auto mated message] The system which ge nerated this result transmit arvind reference range : <=65. The reference range was not used to interpr et this result as mario l/abnormal. [facility]2015-12-28 16:57:00 Test Item Value Reference Range Interpretation Comments Alk Phos (test code = Alk Phos) 97 39-136 [place] 753435-12-28 16:57:00 Test Item Value Reference Range Interpretation Comments Albumin Lvl (test code = Albumin Lvl) 3.6 3.5-5.0 [place] 753435-12-28 16:57:00 Test Item Value Reference Range Interpretation Comments Total Protein (test code = Total 7.3 6.4-8.4 Protein) [place] 753435-12-28 16:57:00 Test Item Value Reference Range Interpretation Comments Bili Total (test code = Bili Total) 0.4 0.2-1.3 [place] 753435-12-28 16:57:00 Test Item Value Reference Range Interpretation Comments Glucose Lvl (test code = Glucose Lvl) 95 70-99 [place] 753435-12-28 16:57:00 Test Item Value Reference Range Interpretation Comments Creatinine Lvl (test code = Creatinine 0.93 0.50-1.40 Lvl) [place] 753435-12-28 16:57:00 Test Item Value Reference Range Interpretation Comments BUN (test code = BUN) 9 7-22 [place] 753435-12-28 16:57:00 Test Item Value Reference Range Interpretation Comments Sodium Lvl (test code = Sodium Lvl) 139 135-145 [place] 753435-12-28 16:57:00 Test Item Value Reference Range Interpretation Comments A/G Ratio (test code = A/G Ratio) 1.0 0.7-1.6 [place] 753435-12-28 16:57:00 Test Item Value Reference Range Interpretation Comments Globulin (test code = Globulin) 3.7 2.0-4.0 [facility]2015-12-28 16:57:00 Test Item Value Reference Range Interpretation Comments B/C Ratio (test code = B/C Ratio) 10 6-25 [facility]2015-12-28 16:57:00 Test Item Value Reference Range Interpretation Comments AGAP (test code = AGAP) 12.6 10.0-20.0 [facility] CenterCrcdonjWYBJKRJEVONPZ1515-67-89 16:57:00 Test Item Value Reference Range Interpretation Comments S Preg (test code = S Negative *NA*(08/26/15 Preg) 10:57 AM) [facility] LakewayTtcsgrmMPOBLOHZMG6819-45-85 16:57:00 Test Item Value Reference Range Interpretation Comments Eosinophils # (test code 0.4 See_Comment [A utomated message] The = Eosinophils #) system whic h generated this result tra nsmitted reference range : <=0.5. The reference r kat was not used to int erpret this result as normal/abnormal . [facility] LakewayVnbouknPYUULAUUUI4192-69-72 16:57:00 Test Item Value Reference Range Interpretation Comments Microcyte (test code = 1+ *ABN*(08/26/15 Microcyte) 10:57 AM) [facility] LakewayWrqlitzDRAEOJERXE7341-16-02 16:57:00 Test Item Value Reference Range Interpretation Comments Basophils # (test code 0.1 See_Comment [Aut omated message] The = Basophils #) system which generated this result tra nsmitted reference range : <=0.2. The reference r kat was not used to int erpret this result as normal/abnormal . [facility] LakewayIawqdzwXGJDEMHJZM0219-06-90 16:57:00 Test Item Value Reference Range Interpretation Comments Monocytes (test code = Monocytes) 8.6 2.0-12.0 [facility] LakewayFzavjfrJLAJGQIKKC9419-06-91 16:57:00 Test Item Value Reference Range Interpretation Comments Lymphocytes (test code = Lymphocytes) 40.6 20.0-40.0 [facility] LakewayDhkqumhICVLERCOSU2590-26-35 16:57:00 Test Item Value Reference Range Interpretation Comments Eosinophils (test code = 5.0 See_Comment [A utomated message] The Eosinophils) system which ge nerated this result tra nsmitted reference range : <=4.0. The reference r kat was not used to int erpret this result as normal/abnormal . [facility] LakewayNwgaoplJRQLOLZVDN2573-17-85 16:57:00 Test Item Value Reference Range Interpretation Comments Segs (test code = Segs) 44.8 45.0-75.0 [facility] LakewayIlcvuaaMNXUZOQIER0478-96-09 16:57:00 Test Item Value Reference Range Interpretation Comments Basophils (test code = 1.0 See_Comment [Aut omated message] The Basophils) system which ge nerated this result tra nsmitted reference range : <=1.0. The reference r kat was not used to int erpret this result as normal/abnormal . [facility] LakewayZckrsmnJZJIIWWELU9157-09-96 16:57:00 Test Item Value Reference Range Interpretation Comments Segs-Bands # (test code = Segs-Bands #) 3.3 1.5-8.1 [facility] LakewayAsmbfyyQUBNMXUSNI5643-36-63 16:57:00 Test Item Value Reference Range Interpretation Comments Monocytes # (test code 0.6 See_Comment [Aut omated message] The = Monocytes #) system which generated this result tra nsmitted reference range : <=0.8. The reference r kat was not used to int erpret this result as normal/abnormal . [facility] LakewayBaxxsuoBYDPVNPTCE4810-41-19 16:57:00 Test Item Value Reference Range Interpretation Comments Lymphocytes # (test code = Lymphocytes 3.0 1.0-5.5 #) [facility] LakewayXmbyvehVTYIIUATEF5860-54-85 16:57:00 Test Item Value Reference Range Interpretation Comments PT (test code = PT) 14.0 s 12.0-14.7 [facility] LakewayDxfyvqpOYQHEAWUVY7016-14-89 16:57:00 Test Item Value Reference Range Interpretation Comments INR (test code = INR) 1.05 0.85-1.17 [facility] LakewayGscfkpcTDTPNREOSD6924-96-56 16:57:00 Test Item Value Reference Range Interpretation Comments PTT (test code = PTT) 30.3 s 22.9-35.8 [facility] LakewayCvezdepTADCBXINYF1163-61-78 16:57:00 Test Item Value Reference Range Interpretation Comments MPV (test code = MPV) 8.9 7.4-10.4 [facility] LakewayNfokmyrWDMGHMSRAK6010-31-23 16:57:00 Test Item Value Reference Range Interpretation Comments RDW (test code = RDW) 15.8 11.5-14.5 [facility] LakewayWpdvdpmBNDQNLTIVB5637-66-05 16:57:00 Test Item Value Reference Range Interpretation Comments Platelet (test code = Platelet) 271 133-450 [facility] LakewayYbmxvlePSRJDPMGCW6639-34-30 16:57:00 Test Item Value Reference Range Interpretation Comments WBC (test code = WBC) 7.3 3.7-10.4 [facility] LakewayEdhcyubDJXJWAQQUA5178-83-63 16:57:00 Test Item Value Reference Range Interpretation Comments RBC (test code = RBC) 5.14 4.20-5.40 [facility] LakewaySqofydmWHOVWORFPO3955-23-58 16:57:00 Test Item Value Reference Range Interpretation Comments MCV (test code = MCV) 77.9 80.0-98.0 [facility] LakewayLxmfzqsJGNUBFYJVE0732-04-22 16:57:00 Test Item Value Reference Range Interpretation Comments MCH (test code = MCH) 23.9 pg 27.0-31.0 [facility] LakewayNdvrszoPTCPXYVQMY4067-79-00 16:57:00 Test Item Value Reference Range Interpretation Comments MCHC (test code = MCHC) 30.7 32.0-36.0 [facility] LakewayTtexbifHSKNSIBMCX1642-39-11 16:57:00 Test Item Value Reference Range Interpretation Comments Hct (test code = Hct) 40.1 36.0-48.0 [facility] LakewayAandtzjROXEMIWNPJ0439-31-06 16:57:00 Test Item Value Reference Range Interpretation Comments Hgb (test code = Hgb) 12.3 12.0-16.0 [facility]2015-12-28 16:57:00 Test Item Value Reference Range Interpretation Comments eGFR (test code = eGFR) 86 [facility]2015-12-28 16:57:00 Test Item Value Reference Range Interpretation Comments Potassium Lvl (test code = Potassium 3.6 3.5-5.1 Lvl) [facility]2015-12-28 16:57:00 Test Item Value Reference Range Interpretation Comments CO2 (test code = CO2) 27 24-32 [facility]2015-12-28 16:57:00 Test Item Value Reference Range Interpretation Comments Chloride Lvl (test code = Chloride Lvl) 103 95-109 [place] 753435-12-28 16:57:00 Test Item Value Reference Range Interpretation Comments Calcium Lvl (test code = Calcium Lvl) 9.4 8.5-10.5 [facility]2015-12-28 16:57:00 Test Item Value Reference Range Interpretation Comments AST (test code = AST) 16 See_Comment [Auto mated message] The system which ge nerated this result transmit arvind reference range : <=37. The reference range was not used to interpr et this result as mario l/abnormal. [facility]2015-12-28 16:57:00 Test Item Value Reference Range Interpretation Comments ALT (test code = ALT) 43 See_Comment [Auto mated message] The system which ge nerated this result transmit arvind reference range : <=65. The reference range was not used to interpr et this result as mario l/abnormal. [place] 753435-12-28 16:57:00 Test Item Value Reference Range Interpretation Comments Alk Phos (test code = Alk Phos) 97 39-136 [facility]2015-12-28 16:57:00 Test Item Value Reference Range Interpretation Comments Albumin Lvl (test code = Albumin Lvl) 3.6 3.5-5.0 [facility]2015-12-28 16:57:00 Test Item Value Reference Range Interpretation Comments Total Protein (test code = Total 7.3 6.4-8.4 Protein) [facility]2015-12-28 16:57:00 Test Item Value Reference Range Interpretation Comments Bili Total (test code = Bili Total) 0.4 0.2-1.3 [facility]2015-12-28 16:57:00 Test Item Value Reference Range Interpretation Comments Glucose Lvl (test code = Glucose Lvl) 95 70-99 [place] 753435-12-28 16:57:00 Test Item Value Reference Range Interpretation Comments Creatinine Lvl (test code = Creatinine 0.93 0.50-1.40 Lvl) [place] 753435-12-28 16:57:00 Test Item Value Reference Range Interpretation Comments BUN (test code = BUN) 9 7-22 [place] 753435-12-28 16:57:00 Test Item Value Reference Range Interpretation Comments Sodium Lvl (test code = Sodium Lvl) 139 135-145 [facility]2015-12-28 16:57:00 Test Item Value Reference Range Interpretation Comments A/G Ratio (test code = A/G Ratio) 1.0 0.7-1.6 [facility]2015-12-28 16:57:00 Test Item Value Reference Range Interpretation Comments Globulin (test code = Globulin) 3.7 2.0-4.0 [facility]2015-12-28 16:57:00 Test Item Value Reference Range Interpretation Comments B/C Ratio (test code = B/C Ratio) 10 6-25 [facility]2015-12-28 16:57:00 Test Item Value Reference Range Interpretation Comments AGAP (test code = AGAP) 12.6 10.0-20.0 [place] 85820015-12-28 16:57:00 Test Item Value Reference Range Interpretation Comments S Preg (test code = S Negative *NA*(08/26/15 Preg) 10:57 AM) [facility] LakewayErduuifGXMNKETIMQ2032-76-62 16:57:00 Test Item Value Reference Range Interpretation Comments Eosinophils # (test code 0.4 See_Comment [A utomated message] The = Eosinophils #) system whic h generated this result tra nsmitted reference range : <=0.5. The reference r kat was not used to int erpret this result as normal/abnormal . [facility] LakewayCbykmijWBYGVMCOMI0736-06-37 16:57:00 Test Item Value Reference Range Interpretation Comments Microcyte (test code = 1+ *ABN*(08/26/15 Microcyte) 10:57 AM) [facility] LakewayDzbkwwrGMWDQBWLEY7530-86-59 16:57:00 Test Item Value Reference Range Interpretation Comments Basophils # (test code 0.1 See_Comment [Aut omated message] The = Basophils #) system which generated this result tra nsmitted reference range : <=0.2. The reference r kat was not used to int erpret this result as normal/abnormal . [facility] LakewayFnxoykjLYTHMNORAP8067-51-90 16:57:00 Test Item Value Reference Range Interpretation Comments Monocytes (test code = Monocytes) 8.6 2.0-12.0 [facility] LakewayThuisvlQDMDMGSXUU0004-84-03 16:57:00 Test Item Value Reference Range Interpretation Comments Lymphocytes (test code = Lymphocytes) 40.6 20.0-40.0 [facility] LakewayYhtwssrMMKMWEJMON3648-35-32 16:57:00 Test Item Value Reference Range Interpretation Comments Eosinophils (test code = 5.0 See_Comment [A utomated message] The Eosinophils) system which ge nerated this result tra nsmitted reference range : <=4.0. The reference r kat was not used to int erpret this result as normal/abnormal . [facility] LakewayDhbfpckULQONZUSAE7482-10-14 16:57:00 Test Item Value Reference Range Interpretation Comments Segs (test code = Segs) 44.8 45.0-75.0 [facility] LakewayIkeuvowGXOFEANPMT2133-59-80 16:57:00 Test Item Value Reference Range Interpretation Comments Basophils (test code = 1.0 See_Comment [Aut omated message] The Basophils) system which ge nerated this result tra nsmitted reference range : <=1.0. The reference r kat was not used to int erpret this result as normal/abnormal . [facility] LakewayNregfxnICKWPGXSID9379-54-61 16:57:00 Test Item Value Reference Range Interpretation Comments Segs-Bands # (test code = Segs-Bands #) 3.3 1.5-8.1 [facility] LakewayPspkuwbWDLNJAONSK6507-20-15 16:57:00 Test Item Value Reference Range Interpretation Comments Monocytes # (test code 0.6 See_Comment [Aut omated message] The = Monocytes #) system which generated this result tra nsmitted reference range : <=0.8. The reference r kat was not used to int erpret this result as normal/abnormal . [facility] LakewayWrmrblpVNBVOEHBTX4295-67-45 16:57:00 Test Item Value Reference Range Interpretation Comments Lymphocytes # (test code = Lymphocytes 3.0 1.0-5.5 #) [facility] LakewayUsywpbiVWEZBLTGEK1385-28-64 16:57:00 Test Item Value Reference Range Interpretation Comments PT (test code = PT) 14.0 s 12.0-14.7 [facility]wayMntkjsrYPUWEGVOVL4219-77-12 16:57:00 Test Item Value Reference Range Interpretation Comments INR (test code = INR) 1.05 0.85-1.17 [facility] LakewayGlvotdwORJYYOOQXZ3805-29-52 16:57:00 Test Item Value Reference Range Interpretation Comments PTT (test code = PTT) 30.3 s 22.9-35.8 [facility] LakewayTfiambeXALLEGZEHQ7313-15-02 16:57:00 Test Item Value Reference Range Interpretation Comments MPV (test code = MPV) 8.9 7.4-10.4 [facility] LakewayKymxkwzXSTMZOSUBW3226-61-55 16:57:00 Test Item Value Reference Range Interpretation Comments RDW (test code = RDW) 15.8 11.5-14.5 [facility] LakewaySkzwzucOBHLLSYTRZ9680-58-68 16:57:00 Test Item Value Reference Range Interpretation Comments Platelet (test code = Platelet) 271 133-450 [facility] LakewayWsffdtaJGMXJZTDUW0322-85-74 16:57:00 Test Item Value Reference Range Interpretation Comments WBC (test code = WBC) 7.3 3.7-10.4 [facility] LakewayDsphcbaJPRDGWYOIY9849-28-67 16:57:00 Test Item Value Reference Range Interpretation Comments RBC (test code = RBC) 5.14 4.20-5.40 [facility] LakewayAgvjgayNDHGBZBRLH2401-73-49 16:57:00 Test Item Value Reference Range Interpretation Comments MCV (test code = MCV) 77.9 80.0-98.0 [facility] LakewayFzpxmjnHEDGTWVRCO9723-77-40 16:57:00 Test Item Value Reference Range Interpretation Comments MCH (test code = MCH) 23.9 pg 27.0-31.0 [facility] LakewayDtkrpidSTHFRQCYDR6189-87-41 16:57:00 Test Item Value Reference Range Interpretation Comments MCHC (test code = MCHC) 30.7 32.0-36.0 [facility] LakewayJsubslqUVPRXUUHMO1824-85-67 16:57:00 Test Item Value Reference Range Interpretation Comments Hct (test code = Hct) 40.1 36.0-48.0 [facility] LakewayEdfiorzXNDVLFZCKB0060-20-86 16:57:00 Test Item Value Reference Range Interpretation Comments Hgb (test code = Hgb) 12.3 12.0-16.0 [facility]2015-12-18 10:58:00 Test Item Value Reference Range Interpretation Comments eGFR (test code = eGFR) 126 [facility] HXVLR9422-75-80 10:58:00 Test Item Value Reference Range Interpretation Comments AST (test code = AST) 29 See_Comment [Auto mated message] The system which ge nerated this result transmit arvind reference range : <=37. The reference range was not used to interpr et this result as mario l/abnormal. [facility]2015-12-18 10:58:00 Test Item Value Reference Range Interpretation Comments Alk Phos (test code = Alk Phos) 86 39-136 [facility]2015-12-18 10:58:00 Test Item Value Reference Range Interpretation Comments Bili Total (test code = Bili Total) 0.3 0.2-1.3 [facility]2015-12-18 10:58:00 Test Item Value Reference Range Interpretation Comments ALT (test code = ALT) 50 See_Comment [Auto mated message] The system which ge nerated this result transmit arvind reference range : <=65. The reference range was not used to interpr et this result as mario l/abnormal. [facility]2015-12-18 10:58:00 Test Item Value Reference Range Interpretation Comments Sodium Lvl (test code = Sodium Lvl) 136 135-145 [facility]2015-12-18 10:58:00 Test Item Value Reference Range Interpretation Comments Potassium Lvl (test code = Potassium 4.0 3.5-5.1 Lvl) [facility]2015-12-18 10:58:00 Test Item Value Reference Range Interpretation Comments Creatinine Lvl (test code = Creatinine 0.62 0.50-1.40 Lvl) [facility]2015-12-18 10:58:00 Test Item Value Reference Range Interpretation Comments Glucose Lvl (test code = Glucose Lvl) 101 70-99 [facility]2015-12-18 10:58:00 Test Item Value Reference Range Interpretation Comments BUN (test code = BUN) 5 7-22 [facility]2015-12-18 10:58:00 Test Item Value Reference Range Interpretation Comments Total Protein (test code = Total 5.8 6.4-8.4 Protein) [facility]2015-12-18 10:58:00 Test Item Value Reference Range Interpretation Comments Albumin Lvl (test code = Albumin Lvl) 3.2 3.5-5.0 [facility]2015-12-18 10:58:00 Test Item Value Reference Range Interpretation Comments Chloride Lvl (test code = Chloride Lvl) 100 95-109 [facility]2015-12-18 10:58:00 Test Item Value Reference Range Interpretation Comments Calcium Lvl (test code = Calcium Lvl) 8.6 8.5-10.5 [facility]2015-12-18 10:58:00 Test Item Value Reference Range Interpretation Comments CO2 (test code = CO2) 27 24-32 [facility]2015-12-18 10:58:00 Test Item Value Reference Range Interpretation Comments B/C Ratio (test code = B/C Ratio) 8 6-25 [facility]2015-12-18 10:58:00 Test Item Value Reference Range Interpretation Comments Globulin (test code = Globulin) 2.6 2.0-4.0 [facility]2015-12-18 10:58:00 Test Item Value Reference Range Interpretation Comments A/G Ratio (test code = A/G Ratio) 1.2 0.7-1.6 [facility]2015-12-18 10:58:00 Test Item Value Reference Range Interpretation Comments AGAP (test code = AGAP) 13.0 10.0-20.0 [facility] LakewayZetjtueJZLHPJDXJG5131-93-17 10:58:00 Test Item Value Reference Range Interpretation Comments Segs (test code = Segs) 74.2 45.0-75.0 [facility]wayMcxfzxmKGGGTLNXAU1939-58-97 10:58:00 Test Item Value Reference Range Interpretation Comments Lymphocytes (test code = Lymphocytes) 18.3 20.0-40.0 [facility] LakewayGkdfhfaISOGETCQDH3729-79-00 10:58:00 Test Item Value Reference Range Interpretation Comments Monocytes (test code = Monocytes) 7.0 2.0-12.0 [facility] LakewayKslagqrGQRVTCVCQJ4452-97-24 10:58:00 Test Item Value Reference Range Interpretation Comments Basophils (test code = 0.3 See_Comment [Aut omated message] The Basophils) system which ge nerated this result tra nsmitted reference range : <=1.0. The reference r kat was not used to int erpret this result as normal/abnormal . [facility] LakewayYioacuaFPODYBCBFA2439-48-61 10:58:00 Test Item Value Reference Range Interpretation Comments Segs-Bands # (test code = Segs-Bands #) 8.1 1.5-8.1 [facility] LakewayWgkqbucALYAMJIPTT7349-97-26 10:58:00 Test Item Value Reference Range Interpretation Comments Eosinophils (test code = 0.2 See_Comment [A utomated message] The Eosinophils) system which ge nerated this result tra nsmitted reference range : <=4.0. The reference r kat was not used to int erpret this result as normal/abnormal . [facility] LakewayEfrmpisRLMHEVORIC1968-66-80 10:58:00 Test Item Value Reference Range Interpretation Comments Monocytes # (test code 0.8 See_Comment [Aut omated message] The = Monocytes #) system which generated this result tra nsmitted reference range : <=0.8. The reference r kat was not used to int erpret this result as normal/abnormal . [facility] LakewayYzaiwxnEOEQMXXUNZ0411-08-35 10:58:00 Test Item Value Reference Range Interpretation Comments Lymphocytes # (test code = Lymphocytes 2.0 1.0-5.5 #) [facility] LakewayUypicatRFOWADRMSR7483-14-18 10:58:00 Test Item Value Reference Range Interpretation Comments Microcyte (test code = 1+ *ABN*(08/16/15 Microcyte) 4:58 AM) [facility] LakewayRmpsifuEHYDMLGATM6981-10-27 10:58:00 Test Item Value Reference Range Interpretation Comments MPV (test code = MPV) 8.9 7.4-10.4 [facility]wayXcsxoqaVOGSMGSPWE1984-38-97 10:58:00 Test Item Value Reference Range Interpretation Comments MCV (test code = MCV) 77.3 80.0-98.0 [facility] LakewayKrdwscrUOZBITSUQU3155-57-05 10:58:00 Test Item Value Reference Range Interpretation Comments Hgb (test code = Hgb) 11.9 12.0-16.0 [facility] LakewayNzsawnuJBRIVNAJUR6290-52-88 10:58:00 Test Item Value Reference Range Interpretation Comments Hct (test code = Hct) 37.5 36.0-48.0 [facility] LakewayYoqjqsrXEGWWKMIUB2926-54-19 10:58:00 Test Item Value Reference Range Interpretation Comments MCH (test code = MCH) 24.5 pg 27.0-31.0 [facility] LakewayEajwyypOAXTAMURXI8736-97-37 10:58:00 Test Item Value Reference Range Interpretation Comments RBC (test code = RBC) 4.85 4.20-5.40 [facility] LakewayMarsxrxBAWVIOQCJG3790-03-08 10:58:00 Test Item Value Reference Range Interpretation Comments WBC (test code = WBC) 10.9 3.7-10.4 [facility] LakewayNltvdsnZHOJLIVORG1302-71-68 10:58:00 Test Item Value Reference Range Interpretation Comments RDW (test code = RDW) 15.9 11.5-14.5 [facility] LakewayYijarpzCIHLZARVSR7938-69-01 10:58:00 Test Item Value Reference Range Interpretation Comments MCHC (test code = MCHC) 31.7 32.0-36.0 [facility] LakewayGwjghnoSBBCGFEUKL0412-15-26 10:58:00 Test Item Value Reference Range Interpretation Comments Platelet (test code = Platelet) 242 133-450 [facility]2015-12-18 10:58:00 Test Item Value Reference Range Interpretation Comments eGFR (test code = eGFR) 126 [facility]2015-12-18 10:58:00 Test Item Value Reference Range Interpretation Comments AST (test code = AST) 29 See_Comment [Auto mated message] The system which ge nerated this result transmit arvind reference range : <=37. The reference range was not used to interpr et this result as mario l/abnormal. [facility]2015-12-18 10:58:00 Test Item Value Reference Range Interpretation Comments Alk Phos (test code = Alk Phos) 86 39-136 [facility]2015-12-18 10:58:00 Test Item Value Reference Range Interpretation Comments Bili Total (test code = Bili Total) 0.3 0.2-1.3 [facility]2015-12-18 10:58:00 Test Item Value Reference Range Interpretation Comments ALT (test code = ALT) 50 See_Comment [Auto mated message] The system which ge nerated this result transmit arvind reference range : <=65. The reference range was not used to interpr et this result as mario l/abnormal. [facility]2015-12-18 10:58:00 Test Item Value Reference Range Interpretation Comments Sodium Lvl (test code = Sodium Lvl) 136 135-145 [facility]2015-12-18 10:58:00 Test Item Value Reference Range Interpretation Comments Potassium Lvl (test code = Potassium 4.0 3.5-5.1 Lvl) [facility]2015-12-18 10:58:00 Test Item Value Reference Range Interpretation Comments Creatinine Lvl (test code = Creatinine 0.62 0.50-1.40 Lvl) [facility]2015-12-18 10:58:00 Test Item Value Reference Range Interpretation Comments Glucose Lvl (test code = Glucose Lvl) 101 70-99 [facility]2015-12-18 10:58:00 Test Item Value Reference Range Interpretation Comments BUN (test code = BUN) 5 7-22 [facility]2015-12-18 10:58:00 Test Item Value Reference Range Interpretation Comments Total Protein (test code = Total 5.8 6.4-8.4 Protein) [facility]2015-12-18 10:58:00 Test Item Value Reference Range Interpretation Comments Albumin Lvl (test code = Albumin Lvl) 3.2 3.5-5.0 [facility]2015-12-18 10:58:00 Test Item Value Reference Range Interpretation Comments Chloride Lvl (test code = Chloride Lvl) 100 95-109 [facility]2015-12-18 10:58:00 Test Item Value Reference Range Interpretation Comments Calcium Lvl (test code = Calcium Lvl) 8.6 8.5-10.5 [facility]2015-12-18 10:58:00 Test Item Value Reference Range Interpretation Comments CO2 (test code = CO2) 27 24-32 [facility]2015-12-18 10:58:00 Test Item Value Reference Range Interpretation Comments B/C Ratio (test code = B/C Ratio) 8 6-25 [facility]2015-12-18 10:58:00 Test Item Value Reference Range Interpretation Comments Globulin (test code = Globulin) 2.6 2.0-4.0 [facility]2015-12-18 10:58:00 Test Item Value Reference Range Interpretation Comments A/G Ratio (test code = A/G Ratio) 1.2 0.7-1.6 [facility]2015-12-18 10:58:00 Test Item Value Reference Range Interpretation Comments AGAP (test code = AGAP) 13.0 10.0-20.0 [facility] LakewayUormdzgJJSMJERQME4764-51-85 10:58:00 Test Item Value Reference Range Interpretation Comments Segs (test code = Segs) 74.2 45.0-75.0 [facility]wayEgzyqxsSIVESERTLD1132-32-36 10:58:00 Test Item Value Reference Range Interpretation Comments Lymphocytes (test code = Lymphocytes) 18.3 20.0-40.0 [facility] LakewayJxhxjowAKZRELYISX2709-70-91 10:58:00 Test Item Value Reference Range Interpretation Comments Monocytes (test code = Monocytes) 7.0 2.0-12.0 [facility]wayPxqukxaYRXMOJDTOH8943-36-84 10:58:00 Test Item Value Reference Range Interpretation Comments Basophils (test code = 0.3 See_Comment [Aut omated message] The Basophils) system which ge nerated this result tra nsmitted reference range : <=1.0. The reference r kat was not used to int erpret this result as normal/abnormal . [facility] LakewayLruiijcWMUIYKNPXB3129-68-61 10:58:00 Test Item Value Reference Range Interpretation Comments Segs-Bands # (test code = Segs-Bands #) 8.1 1.5-8.1 [facility] LakewayTnjocitEGNWBPXEHF0777-95-30 10:58:00 Test Item Value Reference Range Interpretation Comments Eosinophils (test code = 0.2 See_Comment [A utomated message] The Eosinophils) system which ge nerated this result tra nsmitted reference range : <=4.0. The reference r kat was not used to int erpret this result as normal/abnormal . [facility] LakewayBocyqsdNZGBWDBESY6956-25-56 10:58:00 Test Item Value Reference Range Interpretation Comments Monocytes # (test code 0.8 See_Comment [Aut omated message] The = Monocytes #) system which generated this result tra nsmitted reference range : <=0.8. The reference r kat was not used to int erpret this result as normal/abnormal . [facility] LakewayQigxcxhQIXKFOZECX5725-88-39 10:58:00 Test Item Value Reference Range Interpretation Comments Lymphocytes # (test code = Lymphocytes 2.0 1.0-5.5 #) [facility] LakewayDitclwnLRVAWXVFCR9261-59-85 10:58:00 Test Item Value Reference Range Interpretation Comments Microcyte (test code = 1+ *ABN*(08/16/15 Microcyte) 4:58 AM) [facility] LakewayApqlrotUVCCNTAHJF5217-14-05 10:58:00 Test Item Value Reference Range Interpretation Comments MPV (test code = MPV) 8.9 7.4-10.4 [facility] LakewayKjuapwlFPBCKPOHJP7933-34-84 10:58:00 Test Item Value Reference Range Interpretation Comments MCV (test code = MCV) 77.3 80.0-98.0 [facility] LakewayTezvtojJPAJFOJEJB9805-90-35 10:58:00 Test Item Value Reference Range Interpretation Comments Hgb (test code = Hgb) 11.9 12.0-16.0 [facility]wayYbvmmzvQOCZSTZTRU3163-72-29 10:58:00 Test Item Value Reference Range Interpretation Comments Hct (test code = Hct) 37.5 36.0-48.0 [facility] LakewayAalklnmFILTFWOJCL3277-36-17 10:58:00 Test Item Value Reference Range Interpretation Comments MCH (test code = MCH) 24.5 pg 27.0-31.0 [facility] LakewayFjuhcxdFPVVIAINPW0195-83-49 10:58:00 Test Item Value Reference Range Interpretation Comments RBC (test code = RBC) 4.85 4.20-5.40 [facility] LakewayInzykqkNJPRCVOCIQ8866-27-88 10:58:00 Test Item Value Reference Range Interpretation Comments WBC (test code = WBC) 10.9 3.7-10.4 [facility] LakewayUslisxdYMVQXNXBCK0039-41-35 10:58:00 Test Item Value Reference Range Interpretation Comments RDW (test code = RDW) 15.9 11.5-14.5 [facility]wayKkqzbhjGFQRZBWVXQ6282-55-77 10:58:00 Test Item Value Reference Range Interpretation Comments MCHC (test code = MCHC) 31.7 32.0-36.0 [facility]wayEbycvsbKFPFDCNLQU3459-82-44 10:58:00 Test Item Value Reference Range Interpretation Comments Platelet (test code = Platelet) 242 133-450 [facility]2015-12-18 10:58:00 Test Item Value Reference Range Interpretation Comments eGFR (test code = eGFR) 126 [facility]2015-12-18 10:58:00 Test Item Value Reference Range Interpretation Comments AST (test code = AST) 29 See_Comment [Auto mated message] The system which ge nerated this result transmit arvind reference range : <=37. The reference range was not used to interpr et this result as mario l/abnormal. [facility]2015-12-18 10:58:00 Test Item Value Reference Range Interpretation Comments Alk Phos (test code = Alk Phos) 86 39-136 [facility]2015-12-18 10:58:00 Test Item Value Reference Range Interpretation Comments Bili Total (test code = Bili Total) 0.3 0.2-1.3 [facility]2015-12-18 10:58:00 Test Item Value Reference Range Interpretation Comments ALT (test code = ALT) 50 See_Comment [Auto mated message] The system which ge nerated this result transmit arvind reference range : <=65. The reference range was not used to interpr et this result as mario l/abnormal. [facility]2015-12-18 10:58:00 Test Item Value Reference Range Interpretation Comments Sodium Lvl (test code = Sodium Lvl) 136 135-145 [facility]2015-12-18 10:58:00 Test Item Value Reference Range Interpretation Comments Potassium Lvl (test code = Potassium 4.0 3.5-5.1 Lvl) [facility]2015-12-18 10:58:00 Test Item Value Reference Range Interpretation Comments Creatinine Lvl (test code = Creatinine 0.62 0.50-1.40 Lvl) [facility]2015-12-18 10:58:00 Test Item Value Reference Range Interpretation Comments Glucose Lvl (test code = Glucose Lvl) 101 70-99 [facility]2015-12-18 10:58:00 Test Item Value Reference Range Interpretation Comments BUN (test code = BUN) 5 7-22 [facility]2015-12-18 10:58:00 Test Item Value Reference Range Interpretation Comments Total Protein (test code = Total 5.8 6.4-8.4 Protein) [facility]2015-12-18 10:58:00 Test Item Value Reference Range Interpretation Comments Albumin Lvl (test code = Albumin Lvl) 3.2 3.5-5.0 [facility]2015-12-18 10:58:00 Test Item Value Reference Range Interpretation Comments Chloride Lvl (test code = Chloride Lvl) 100 95-109 [facility]2015-12-18 10:58:00 Test Item Value Reference Range Interpretation Comments Calcium Lvl (test code = Calcium Lvl) 8.6 8.5-10.5 [facility]2015-12-18 10:58:00 Test Item Value Reference Range Interpretation Comments CO2 (test code = CO2) 27 24-32 [facility]2015-12-18 10:58:00 Test Item Value Reference Range Interpretation Comments B/C Ratio (test code = B/C Ratio) 8 6-25 [facility]2015-12-18 10:58:00 Test Item Value Reference Range Interpretation Comments Globulin (test code = Globulin) 2.6 2.0-4.0 [facility]2015-12-18 10:58:00 Test Item Value Reference Range Interpretation Comments A/G Ratio (test code = A/G Ratio) 1.2 0.7-1.6 [facility]2015-12-18 10:58:00 Test Item Value Reference Range Interpretation Comments AGAP (test code = AGAP) 13.0 10.0-20.0 [facility] LakewayLbcieqvCYANWIAFPZ1198-87-49 10:58:00 Test Item Value Reference Range Interpretation Comments Segs (test code = Segs) 74.2 45.0-75.0 [facility] LakewayNmatnyrLGQLVNJWIU7932-11-74 10:58:00 Test Item Value Reference Range Interpretation Comments Lymphocytes (test code = Lymphocytes) 18.3 20.0-40.0 [facility] LakewayRzzrtraVEVGFUFAKV6760-34-24 10:58:00 Test Item Value Reference Range Interpretation Comments Monocytes (test code = Monocytes) 7.0 2.0-12.0 [facility] LakewayPbturyzLFJDMRXZTQ9521-26-76 10:58:00 Test Item Value Reference Range Interpretation Comments Basophils (test code = 0.3 See_Comment [Aut omated message] The Basophils) system which ge nerated this result tra nsmitted reference range : <=1.0. The reference r kat was not used to int erpret this result as normal/abnormal . [facility] LakewayWouagstDBTOBYBPJW9915-55-79 10:58:00 Test Item Value Reference Range Interpretation Comments Segs-Bands # (test code = Segs-Bands #) 8.1 1.5-8.1 [facility] LakewayXqvivsfGZFQTRAHSE1094-85-33 10:58:00 Test Item Value Reference Range Interpretation Comments Eosinophils (test code = 0.2 See_Comment [A utomated message] The Eosinophils) system which ge nerated this result tra nsmitted reference range : <=4.0. The reference r kat was not used to int erpret this result as normal/abnormal . [facility] LakewayBwyhryeYODUHRRXPD1116-64-42 10:58:00 Test Item Value Reference Range Interpretation Comments Monocytes # (test code 0.8 See_Comment [Aut omated message] The = Monocytes #) system which generated this result tra nsmitted reference range : <=0.8. The reference r kat was not used to int erpret this result as normal/abnormal . [facility] LakewayCgnraxkVJFRFHVIXT9134-83-55 10:58:00 Test Item Value Reference Range Interpretation Comments Lymphocytes # (test code = Lymphocytes 2.0 1.0-5.5 #) [facility] LakewayLvupedsTQACZGJXIL2126-74-29 10:58:00 Test Item Value Reference Range Interpretation Comments Microcyte (test code = 1+ *ABN*(08/16/15 Microcyte) 4:58 AM) [facility] LakewayKkgonmyLNEGECKNCP3673-63-33 10:58:00 Test Item Value Reference Range Interpretation Comments MPV (test code = MPV) 8.9 7.4-10.4 [facility] LakewayMggoiyhUXAJECIZSW0942-21-15 10:58:00 Test Item Value Reference Range Interpretation Comments MCV (test code = MCV) 77.3 80.0-98.0 [facility] LakewayUikozwmYUJDIYXSDD6218-35-46 10:58:00 Test Item Value Reference Range Interpretation Comments Hgb (test code = Hgb) 11.9 12.0-16.0 [facility] LakewayMdhqqvaMWVRBRHLJI8024-28-33 10:58:00 Test Item Value Reference Range Interpretation Comments Hct (test code = Hct) 37.5 36.0-48.0 [facility] LakewayJhkqlpmZUDLCGQVBA1174-70-61 10:58:00 Test Item Value Reference Range Interpretation Comments MCH (test code = MCH) 24.5 pg 27.0-31.0 [facility] LakewayZitmjbuNVHQKFDSIH3941-28-14 10:58:00 Test Item Value Reference Range Interpretation Comments RBC (test code = RBC) 4.85 4.20-5.40 [facility] LakewayVudlfmaRLRJXNDYDU5029-93-02 10:58:00 Test Item Value Reference Range Interpretation Comments WBC (test code = WBC) 10.9 3.7-10.4 [facility] LakewayDihthkaIYUGKSROOG8478-16-54 10:58:00 Test Item Value Reference Range Interpretation Comments RDW (test code = RDW) 15.9 11.5-14.5 [facility] LakewayGagcwruSAIXIFOAGC9838-03-20 10:58:00 Test Item Value Reference Range Interpretation Comments MCHC (test code = MCHC) 31.7 32.0-36.0 [id number] 10:58:00 Test Item Value Reference Range Interpretation Comments Platelet (test code = Platelet) 242 133-450 [facility]2015-12-18 10:58:00 Test Item Value Reference Range Interpretation Comments eGFR (test code = eGFR) 126 [facility]2015-12-18 10:58:00 Test Item Value Reference Range Interpretation Comments AST (test code = AST) 29 See_Comment [Auto mated message] The system which ge nerated this result transmit arvind reference range : <=37. The reference range was not used to interpr et this result as mario l/abnormal. [facility]2015-12-18 10:58:00 Test Item Value Reference Range Interpretation Comments Alk Phos (test code = Alk Phos) 86 39-136 [facility]2015-12-18 10:58:00 Test Item Value Reference Range Interpretation Comments Bili Total (test code = Bili Total) 0.3 0.2-1.3 [facility]2015-12-18 10:58:00 Test Item Value Reference Range Interpretation Comments ALT (test code = ALT) 50 See_Comment [Auto mated message] The system which ge nerated this result transmit arvind reference range : <=65. The reference range was not used to interpr et this result as mario l/abnormal. [facility]2015-12-18 10:58:00 Test Item Value Reference Range Interpretation Comments Sodium Lvl (test code = Sodium Lvl) 136 135-145 [facility]2015-12-18 10:58:00 Test Item Value Reference Range Interpretation Comments Potassium Lvl (test code = Potassium 4.0 3.5-5.1 Lvl) [facility]2015-12-18 10:58:00 Test Item Value Reference Range Interpretation Comments Creatinine Lvl (test code = Creatinine 0.62 0.50-1.40 Lvl) [facility]2015-12-18 10:58:00 Test Item Value Reference Range Interpretation Comments Glucose Lvl (test code = Glucose Lvl) 101 70-99 [facility]2015-12-18 10:58:00 Test Item Value Reference Range Interpretation Comments BUN (test code = BUN) 5 7-22 [facility]2015-12-18 10:58:00 Test Item Value Reference Range Interpretation Comments Total Protein (test code = Total 5.8 6.4-8.4 Protein) [facility]2015-12-18 10:58:00 Test Item Value Reference Range Interpretation Comments Albumin Lvl (test code = Albumin Lvl) 3.2 3.5-5.0 [facility]2015-12-18 10:58:00 Test Item Value Reference Range Interpretation Comments Chloride Lvl (test code = Chloride Lvl) 100 95-109 [facility]2015-12-18 10:58:00 Test Item Value Reference Range Interpretation Comments Calcium Lvl (test code = Calcium Lvl) 8.6 8.5-10.5 [facility]2015-12-18 10:58:00 Test Item Value Reference Range Interpretation Comments CO2 (test code = CO2) 27 24-32 [facility]2015-12-18 10:58:00 Test Item Value Reference Range Interpretation Comments B/C Ratio (test code = B/C Ratio) 8 6-25 [facility]2015-12-18 10:58:00 Test Item Value Reference Range Interpretation Comments Globulin (test code = Globulin) 2.6 2.0-4.0 [facility]2015-12-18 10:58:00 Test Item Value Reference Range Interpretation Comments A/G Ratio (test code = A/G Ratio) 1.2 0.7-1.6 [facility]2015-12-18 10:58:00 Test Item Value Reference Range Interpretation Comments AGAP (test code = AGAP) 13.0 10.0-20.0 [facility]wayKgppizdNQMXWSVLEI7838-32-84 10:58:00 Test Item Value Reference Range Interpretation Comments Segs (test code = Segs) 74.2 45.0-75.0 [facility] LakewayInjswxnUYFJAETPAF0136-36-97 10:58:00 Test Item Value Reference Range Interpretation Comments Lymphocytes (test code = Lymphocytes) 18.3 20.0-40.0 [facility] LakewayAvrxhdqFEPQKYCQOE5773-54-56 10:58:00 Test Item Value Reference Range Interpretation Comments Monocytes (test code = Monocytes) 7.0 2.0-12.0 [facility] LakewayUrevbkrPRUXMPCTDP2191-36-05 10:58:00 Test Item Value Reference Range Interpretation Comments Basophils (test code = 0.3 See_Comment [Aut omated message] The Basophils) system which ge nerated this result tra nsmitted reference range : <=1.0. The reference r kat was not used to int erpret this result as normal/abnormal . [facility] LakewayQfrkbqkGTTONYJWIT7484-87-31 10:58:00 Test Item Value Reference Range Interpretation Comments Segs-Bands # (test code = Segs-Bands #) 8.1 1.5-8.1 [facility] LakewayKrzqrbkVGYJSXCIYV2007-82-18 10:58:00 Test Item Value Reference Range Interpretation Comments Eosinophils (test code = 0.2 See_Comment [A utomated message] The Eosinophils) system which ge nerated this result tra nsmitted reference range : <=4.0. The reference r kat was not used to int erpret this result as normal/abnormal . [facility] LakewayKdlyipoIHOVPNQWQA9167-31-28 10:58:00 Test Item Value Reference Range Interpretation Comments Monocytes # (test code 0.8 See_Comment [Aut omated message] The = Monocytes #) system which generated this result tra nsmitted reference range : <=0.8. The reference r kat was not used to int erpret this result as normal/abnormal . [facility] LakewayHaebmthGROZSOYVGI7165-31-01 10:58:00 Test Item Value Reference Range Interpretation Comments Lymphocytes # (test code = Lymphocytes 2.0 1.0-5.5 #) [facility] LakewayYggdfajNPGZYUCIJX4986-87-70 10:58:00 Test Item Value Reference Range Interpretation Comments Microcyte (test code = 1+ *ABN*(08/16/15 Microcyte) 4:58 AM) [facility] LakewayLkdsiyiMZFMMJOAZH0513-75-82 10:58:00 Test Item Value Reference Range Interpretation Comments MPV (test code = MPV) 8.9 7.4-10.4 [facility] LakewayWogwtxoZWZNLHKXLA6997-43-56 10:58:00 Test Item Value Reference Range Interpretation Comments MCV (test code = MCV) 77.3 80.0-98.0 [facility] LakewayGkuzjvxDMNHBDLUSG6934-76-41 10:58:00 Test Item Value Reference Range Interpretation Comments Hgb (test code = Hgb) 11.9 12.0-16.0 [facility] LakewayEfphewaAVWTDOARCH4698-41-65 10:58:00 Test Item Value Reference Range Interpretation Comments Hct (test code = Hct) 37.5 36.0-48.0 [facility] LakewayWdyqpqhEJNIHDTNSY4007-33-34 10:58:00 Test Item Value Reference Range Interpretation Comments MCH (test code = MCH) 24.5 pg 27.0-31.0 [facility] LakewayNztxsieUUMDEHSEYP7380-47-02 10:58:00 Test Item Value Reference Range Interpretation Comments RBC (test code = RBC) 4.85 4.20-5.40 [facility] LakewayVikewmiZFPSYPYJYU3042-86-08 10:58:00 Test Item Value Reference Range Interpretation Comments WBC (test code = WBC) 10.9 3.7-10.4 [facility] LakewayZseoxhsTAYJOCZDOE5966-32-41 10:58:00 Test Item Value Reference Range Interpretation Comments RDW (test code = RDW) 15.9 11.5-14.5 [facility] LakewayXdbbbxvMYLPGKUQTY2052-27-99 10:58:00 Test Item Value Reference Range Interpretation Comments MCHC (test code = MCHC) 31.7 32.0-36.0 [facility] LakewayLxlzisuBAGBBQRMMB2433-20-40 10:58:00 Test Item Value Reference Range Interpretation Comments Platelet (test code = Platelet) 242 133-450 [facility]2015-12-18 10:58:00 Test Item Value Reference Range Interpretation Comments eGFR (test code = eGFR) 126 [facility]2015-12-18 10:58:00 Test Item Value Reference Range Interpretation Comments AST (test code = AST) 29 See_Comment [Auto mated message] The system which ge nerated this result transmit arvind reference range : <=37. The reference range was not used to interpr et this result as mario l/abnormal. [facility]2015-12-18 10:58:00 Test Item Value Reference Range Interpretation Comments Alk Phos (test code = Alk Phos) 86 39-136 [facility]2015-12-18 10:58:00 Test Item Value Reference Range Interpretation Comments Bili Total (test code = Bili Total) 0.3 0.2-1.3 [facility]2015-12-18 10:58:00 Test Item Value Reference Range Interpretation Comments ALT (test code = ALT) 50 See_Comment [Auto mated message] The system which ge nerated this result transmit arvind reference range : <=65. The reference range was not used to interpr et this result as mario l/abnormal. [facility]2015-12-18 10:58:00 Test Item Value Reference Range Interpretation Comments Sodium Lvl (test code = Sodium Lvl) 136 135-145 [facility]2015-12-18 10:58:00 Test Item Value Reference Range Interpretation Comments Potassium Lvl (test code = Potassium 4.0 3.5-5.1 Lvl) [facility]2015-12-18 10:58:00 Test Item Value Reference Range Interpretation Comments Creatinine Lvl (test code = Creatinine 0.62 0.50-1.40 Lvl) [facility]2015-12-18 10:58:00 Test Item Value Reference Range Interpretation Comments Glucose Lvl (test code = Glucose Lvl) 101 70-99 [facility]2015-12-18 10:58:00 Test Item Value Reference Range Interpretation Comments BUN (test code = BUN) 5 7-22 [facility]2015-12-18 10:58:00 Test Item Value Reference Range Interpretation Comments Total Protein (test code = Total 5.8 6.4-8.4 Protein) [facility]2015-12-18 10:58:00 Test Item Value Reference Range Interpretation Comments Albumin Lvl (test code = Albumin Lvl) 3.2 3.5-5.0 [facility]2015-12-18 10:58:00 Test Item Value Reference Range Interpretation Comments Chloride Lvl (test code = Chloride Lvl) 100 95-109 [facility]2015-12-18 10:58:00 Test Item Value Reference Range Interpretation Comments Calcium Lvl (test code = Calcium Lvl) 8.6 8.5-10.5 [facility]2015-12-18 10:58:00 Test Item Value Reference Range Interpretation Comments CO2 (test code = CO2) 27 24-32 [facility]2015-12-18 10:58:00 Test Item Value Reference Range Interpretation Comments B/C Ratio (test code = B/C Ratio) 8 6-25 [facility]2015-12-18 10:58:00 Test Item Value Reference Range Interpretation Comments Globulin (test code = Globulin) 2.6 2.0-4.0 [facility]2015-12-18 10:58:00 Test Item Value Reference Range Interpretation Comments A/G Ratio (test code = A/G Ratio) 1.2 0.7-1.6 [facility]2015-12-18 10:58:00 Test Item Value Reference Range Interpretation Comments AGAP (test code = AGAP) 13.0 10.0-20.0 [facility] LakewayKasbuvnGLRLPJYPJT2501-81-06 10:58:00 Test Item Value Reference Range Interpretation Comments Segs (test code = Segs) 74.2 45.0-75.0 [facility] LakewayEtbfzxeJOUJWZPLPJ8059-06-95 10:58:00 Test Item Value Reference Range Interpretation Comments Lymphocytes (test code = Lymphocytes) 18.3 20.0-40.0 [facility] LakewayAlnhctnBZYYEJITHW8601-16-89 10:58:00 Test Item Value Reference Range Interpretation Comments Monocytes (test code = Monocytes) 7.0 2.0-12.0 [facility] LakewayUctglnmVYBSKSULXV2720-00-26 10:58:00 Test Item Value Reference Range Interpretation Comments Basophils (test code = 0.3 See_Comment [Aut omated message] The Basophils) system which ge nerated this result tra nsmitted reference range : <=1.0. The reference r kat was not used to int erpret this result as normal/abnormal . [facility] LakewayEokjhbjPRGZRDBEGT0960-43-83 10:58:00 Test Item Value Reference Range Interpretation Comments Segs-Bands # (test code = Segs-Bands #) 8.1 1.5-8.1 [facility] LakewayKfhnmmdSFJSGCMCOI4007-75-65 10:58:00 Test Item Value Reference Range Interpretation Comments Eosinophils (test code = 0.2 See_Comment [A utomated message] The Eosinophils) system which ge nerated this result tra nsmitted reference range : <=4.0. The reference r kat was not used to int erpret this result as normal/abnormal . [facility] LakewayUyvzdjxFWFCCYQYFQ3541-65-74 10:58:00 Test Item Value Reference Range Interpretation Comments Monocytes # (test code 0.8 See_Comment [Aut omated message] The = Monocytes #) system which generated this result tra nsmitted reference range : <=0.8. The reference r kat was not used to int erpret this result as normal/abnormal . [facility] LakewayCqijufnLTFLOKSZHG0307-35-34 10:58:00 Test Item Value Reference Range Interpretation Comments Lymphocytes # (test code = Lymphocytes 2.0 1.0-5.5 #) [facility] LakewayUakwoqnWNTEFSDRXJ5715-77-81 10:58:00 Test Item Value Reference Range Interpretation Comments Microcyte (test code = 1+ *ABN*(08/16/15 Microcyte) 4:58 AM) [facility] LakewayUfetgyuVMBXXKKBWJ5521-43-73 10:58:00 Test Item Value Reference Range Interpretation Comments MPV (test code = MPV) 8.9 7.4-10.4 [facility] LakewayPbuyluvWHDNCMTGHB9754-15-77 10:58:00 Test Item Value Reference Range Interpretation Comments MCV (test code = MCV) 77.3 80.0-98.0 [facility] LakewayVffvrdrBNHHJSITUN6871-24-37 10:58:00 Test Item Value Reference Range Interpretation Comments Hgb (test code = Hgb) 11.9 12.0-16.0 [facility] LakewayTxlquhiIFXXQUBGDX6625-84-09 10:58:00 Test Item Value Reference Range Interpretation Comments Hct (test code = Hct) 37.5 36.0-48.0 [facility] LakewayFkvdfpsNUVZBJZNOS7661-02-36 10:58:00 Test Item Value Reference Range Interpretation Comments MCH (test code = MCH) 24.5 pg 27.0-31.0 [facility] LakewayPjgfkbpYLWCRBEJHI2437-89-76 10:58:00 Test Item Value Reference Range Interpretation Comments RBC (test code = RBC) 4.85 4.20-5.40 [facility] LakewayGdjfpvuBCWEJCDJPI1996-83-02 10:58:00 Test Item Value Reference Range Interpretation Comments WBC (test code = WBC) 10.9 3.7-10.4 [facility] LakewayNewhrxcPYWPXIKOKO3834-06-02 10:58:00 Test Item Value Reference Range Interpretation Comments RDW (test code = RDW) 15.9 11.5-14.5 [facility] LakewayNkzexnmHEIROHQNNW2130-82-35 10:58:00 Test Item Value Reference Range Interpretation Comments MCHC (test code = MCHC) 31.7 32.0-36.0 [facility] LakewayMpkdnprXGLGJGQTMS5033-53-37 10:58:00 Test Item Value Reference Range Interpretation Comments Platelet (test code = Platelet) 242 133-450 [facility]2015-12-18 10:58:00 Test Item Value Reference Range Interpretation Comments eGFR (test code = eGFR) 126 [facility]2015-12-18 10:58:00 Test Item Value Reference Range Interpretation Comments AST (test code = AST) 29 See_Comment [Auto mated message] The system which ge nerated this result transmit arvind reference range : <=37. The reference range was not used to interpr et this result as mario l/abnormal. [facility]2015-12-18 10:58:00 Test Item Value Reference Range Interpretation Comments Alk Phos (test code = Alk Phos) 86 39-136 [facility]2015-12-18 10:58:00 Test Item Value Reference Range Interpretation Comments Bili Total (test code = Bili Total) 0.3 0.2-1.3 [facility]2015-12-18 10:58:00 Test Item Value Reference Range Interpretation Comments ALT (test code = ALT) 50 See_Comment [Auto mated message] The system which ge nerated this result transmit arvind reference range : <=65. The reference range was not used to interpr et this result as mario l/abnormal. [facility]2015-12-18 10:58:00 Test Item Value Reference Range Interpretation Comments Sodium Lvl (test code = Sodium Lvl) 136 135-145 [facility]2015-12-18 10:58:00 Test Item Value Reference Range Interpretation Comments Potassium Lvl (test code = Potassium 4.0 3.5-5.1 Lvl) [facility]2015-12-18 10:58:00 Test Item Value Reference Range Interpretation Comments Creatinine Lvl (test code = Creatinine 0.62 0.50-1.40 Lvl) [facility]2015-12-18 10:58:00 Test Item Value Reference Range Interpretation Comments Glucose Lvl (test code = Glucose Lvl) 101 70-99 [facility]2015-12-18 10:58:00 Test Item Value Reference Range Interpretation Comments BUN (test code = BUN) 5 7-22 [facility]2015-12-18 10:58:00 Test Item Value Reference Range Interpretation Comments Total Protein (test code = Total 5.8 6.4-8.4 Protein) [facility]2015-12-18 10:58:00 Test Item Value Reference Range Interpretation Comments Albumin Lvl (test code = Albumin Lvl) 3.2 3.5-5.0 [facility]2015-12-18 10:58:00 Test Item Value Reference Range Interpretation Comments Chloride Lvl (test code = Chloride Lvl) 100 95-109 [facility]2015-12-18 10:58:00 Test Item Value Reference Range Interpretation Comments Calcium Lvl (test code = Calcium Lvl) 8.6 8.5-10.5 [facility]2015-12-18 10:58:00 Test Item Value Reference Range Interpretation Comments CO2 (test code = CO2) 27 24-32 [facility]2015-12-18 10:58:00 Test Item Value Reference Range Interpretation Comments B/C Ratio (test code = B/C Ratio) 8 6-25 [facility]2015-12-18 10:58:00 Test Item Value Reference Range Interpretation Comments Globulin (test code = Globulin) 2.6 2.0-4.0 [facility]2015-12-18 10:58:00 Test Item Value Reference Range Interpretation Comments A/G Ratio (test code = A/G Ratio) 1.2 0.7-1.6 [facility]2015-12-18 10:58:00 Test Item Value Reference Range Interpretation Comments AGAP (test code = AGAP) 13.0 10.0-20.0 [facility] LakewayJqjweuvBNHKCQYILB9392-30-87 10:58:00 Test Item Value Reference Range Interpretation Comments Segs (test code = Segs) 74.2 45.0-75.0 [facility] LakewayCtjwcwfCLHQJRZXEP7998-91-92 10:58:00 Test Item Value Reference Range Interpretation Comments Lymphocytes (test code = Lymphocytes) 18.3 20.0-40.0 [facility] LakewayDjrymbzCAQLWWAPWG8590-16-80 10:58:00 Test Item Value Reference Range Interpretation Comments Monocytes (test code = Monocytes) 7.0 2.0-12.0 [facility] LakewayVwjmmtvIMETRCEDXI1742-31-30 10:58:00 Test Item Value Reference Range Interpretation Comments Basophils (test code = 0.3 See_Comment [Aut omated message] The Basophils) system which ge nerated this result tra nsmitted reference range : <=1.0. The reference r kat was not used to int erpret this result as normal/abnormal . [facility] LakewayYvdqqgcVBTRVDNGVI0346-75-35 10:58:00 Test Item Value Reference Range Interpretation Comments Segs-Bands # (test code = Segs-Bands #) 8.1 1.5-8.1 [facility] LakewayVtovaweFECUJUDWCM0871-90-15 10:58:00 Test Item Value Reference Range Interpretation Comments Eosinophils (test code = 0.2 See_Comment [A utomated message] The Eosinophils) system which ge nerated this result tra nsmitted reference range : <=4.0. The reference r kat was not used to int erpret this result as normal/abnormal . [facility] LakewayPluokcyBPGLJVQFUH0081-66-63 10:58:00 Test Item Value Reference Range Interpretation Comments Monocytes # (test code 0.8 See_Comment [Aut omated message] The = Monocytes #) system which generated this result tra nsmitted reference range : <=0.8. The reference r kat was not used to int erpret this result as normal/abnormal . [facility] LakewayMdojvbkTXCIULRNSQ6735-18-27 10:58:00 Test Item Value Reference Range Interpretation Comments Lymphocytes # (test code = Lymphocytes 2.0 1.0-5.5 #) [facility] LakewayJcjoyctERLWBYEIUQ7196-39-11 10:58:00 Test Item Value Reference Range Interpretation Comments Microcyte (test code = 1+ *ABN*(08/16/15 Microcyte) 4:58 AM) [facility] LakewayTzarnfrTZPCFCHLEG9496-42-04 10:58:00 Test Item Value Reference Range Interpretation Comments MPV (test code = MPV) 8.9 7.4-10.4 [facility] LakewayTfylcxjIGZQABAQAY0467-84-02 10:58:00 Test Item Value Reference Range Interpretation Comments MCV (test code = MCV) 77.3 80.0-98.0 [facility] LakewayAlirrjoAOZQTGNQAF3391-28-05 10:58:00 Test Item Value Reference Range Interpretation Comments Hgb (test code = Hgb) 11.9 12.0-16.0 [facility] LakewayBdisuchEAJHPSICVQ6761-06-68 10:58:00 Test Item Value Reference Range Interpretation Comments Hct (test code = Hct) 37.5 36.0-48.0 [facility] LakewayPdlvbajVPFEGPAFPJ6438-81-07 10:58:00 Test Item Value Reference Range Interpretation Comments MCH (test code = MCH) 24.5 pg 27.0-31.0 [facility] LakewayYuexppaGKUMNUBNKE0588-46-54 10:58:00 Test Item Value Reference Range Interpretation Comments RBC (test code = RBC) 4.85 4.20-5.40 [facility] LakewayPiwilvdEUOVATBIIX2272-95-24 10:58:00 Test Item Value Reference Range Interpretation Comments WBC (test code = WBC) 10.9 3.7-10.4 [facility] LakewayBvtehivLAGYLBYSGP7102-94-19 10:58:00 Test Item Value Reference Range Interpretation Comments RDW (test code = RDW) 15.9 11.5-14.5 [facility] LakewayRtysrgyFDJLVKKTRN2822-88-47 10:58:00 Test Item Value Reference Range Interpretation Comments MCHC (test code = MCHC) 31.7 32.0-36.0 [facility] LakewayRsruvgiOTOJJHXEDY7198-43-35 10:58:00 Test Item Value Reference Range Interpretation Comments Platelet (test code = Platelet) 242 133-450 [facility]2015-12-18 10:58:00 Test Item Value Reference Range Interpretation Comments eGFR (test code = eGFR) 126 [facility]2015-12-18 10:58:00 Test Item Value Reference Range Interpretation Comments AST (test code = AST) 29 See_Comment [Auto mated message] The system which ge nerated this result transmit arvind reference range : <=37. The reference range was not used to interpr et this result as mairo l/abnormal. [facility]2015-12-18 10:58:00 Test Item Value Reference Range Interpretation Comments Alk Phos (test code = Alk Phos) 86 39-136 [place] 753435-12-18 10:58:00 Test Item Value Reference Range Interpretation Comments Bili Total (test code = Bili Total) 0.3 0.2-1.3 [facility]2015-12-18 10:58:00 Test Item Value Reference Range Interpretation Comments ALT (test code = ALT) 50 See_Comment [Auto mated message] The system which ge nerated this result transmit arvind reference range : <=65. The reference range was not used to interpr et this result as mario l/abnormal. [facility]2015-12-18 10:58:00 Test Item Value Reference Range Interpretation Comments Sodium Lvl (test code = Sodium Lvl) 136 135-145 [facility]2015-12-18 10:58:00 Test Item Value Reference Range Interpretation Comments Potassium Lvl (test code = Potassium 4.0 3.5-5.1 Lvl) [facility]2015-12-18 10:58:00 Test Item Value Reference Range Interpretation Comments Creatinine Lvl (test code = Creatinine 0.62 0.50-1.40 Lvl) [facility]2015-12-18 10:58:00 Test Item Value Reference Range Interpretation Comments Glucose Lvl (test code = Glucose Lvl) 101 70-99 [facility]2015-12-18 10:58:00 Test Item Value Reference Range Interpretation Comments BUN (test code = BUN) 5 7-22 [facility]2015-12-18 10:58:00 Test Item Value Reference Range Interpretation Comments Total Protein (test code = Total 5.8 6.4-8.4 Protein) [facility]2015-12-18 10:58:00 Test Item Value Reference Range Interpretation Comments Albumin Lvl (test code = Albumin Lvl) 3.2 3.5-5.0 [facility]2015-12-18 10:58:00 Test Item Value Reference Range Interpretation Comments Chloride Lvl (test code = Chloride Lvl) 100 95-109 [facility]2015-12-18 10:58:00 Test Item Value Reference Range Interpretation Comments Calcium Lvl (test code = Calcium Lvl) 8.6 8.5-10.5 [facility]2015-12-18 10:58:00 Test Item Value Reference Range Interpretation Comments CO2 (test code = CO2) 27 24-32 [facility]2015-12-18 10:58:00 Test Item Value Reference Range Interpretation Comments B/C Ratio (test code = B/C Ratio) 8 6-25 [facility]2015-12-18 10:58:00 Test Item Value Reference Range Interpretation Comments Globulin (test code = Globulin) 2.6 2.0-4.0 [facility]2015-12-18 10:58:00 Test Item Value Reference Range Interpretation Comments A/G Ratio (test code = A/G Ratio) 1.2 0.7-1.6 [facility]2015-12-18 10:58:00 Test Item Value Reference Range Interpretation Comments AGAP (test code = AGAP) 13.0 10.0-20.0 [facility]wayDpodypeHXMWKOJGHS0994-21-63 10:58:00 Test Item Value Reference Range Interpretation Comments Segs (test code = Segs) 74.2 45.0-75.0 [facility] LakewayFgoncqhDMEDZFTMBD4685-06-88 10:58:00 Test Item Value Reference Range Interpretation Comments Lymphocytes (test code = Lymphocytes) 18.3 20.0-40.0 [facility] LakewayBzohmftESOZTMCBSI6852-45-50 10:58:00 Test Item Value Reference Range Interpretation Comments Monocytes (test code = Monocytes) 7.0 2.0-12.0 [facility] LakewayAzmfaiqXAMYQVLARU1311-48-85 10:58:00 Test Item Value Reference Range Interpretation Comments Basophils (test code = 0.3 See_Comment [Aut omated message] The Basophils) system which ge nerated this result tra nsmitted reference range : <=1.0. The reference r kat was not used to int erpret this result as normal/abnormal . [facility] LakewayLctuawzQYIQJWTJRW9953-60-96 10:58:00 Test Item Value Reference Range Interpretation Comments Segs-Bands # (test code = Segs-Bands #) 8.1 1.5-8.1 [facility] LakewayNskclviGIGPLLJHUH3054-44-06 10:58:00 Test Item Value Reference Range Interpretation Comments Eosinophils (test code = 0.2 See_Comment [A utomated message] The Eosinophils) system which ge nerated this result tra nsmitted reference range : <=4.0. The reference r kat was not used to int erpret this result as normal/abnormal . [facility] LakewayCvrtprxDCNEUYESPE3189-95-39 10:58:00 Test Item Value Reference Range Interpretation Comments Monocytes # (test code 0.8 See_Comment [Aut omated message] The = Monocytes #) system which generated this result tra nsmitted reference range : <=0.8. The reference r kat was not used to int erpret this result as normal/abnormal . [facility] LakewayHqyuedkLUGDLQDHZN2577-76-54 10:58:00 Test Item Value Reference Range Interpretation Comments Lymphocytes # (test code = Lymphocytes 2.0 1.0-5.5 #) [facility]wayTwkghkbOCDNDFLKDL0790-42-96 10:58:00 Test Item Value Reference Range Interpretation Comments Microcyte (test code = 1+ *ABN*(08/16/15 Microcyte) 4:58 AM) [facility] LakewayTnvebgzRDHILWNIHS4264-01-76 10:58:00 Test Item Value Reference Range Interpretation Comments MPV (test code = MPV) 8.9 7.4-10.4 [facility] LakewayIjljqvbZFAKWKZLCX7880-83-00 10:58:00 Test Item Value Reference Range Interpretation Comments MCV (test code = MCV) 77.3 80.0-98.0 [facility] LakewayAqfavysJLZJDNWFCY2314-34-36 10:58:00 Test Item Value Reference Range Interpretation Comments Hgb (test code = Hgb) 11.9 12.0-16.0 [facility] LakewayDyfynrpUGAYVQTCIZ6672-71-35 10:58:00 Test Item Value Reference Range Interpretation Comments Hct (test code = Hct) 37.5 36.0-48.0 [facility] LakewayVgtlyowLKQYOSOBXL6862-79-29 10:58:00 Test Item Value Reference Range Interpretation Comments MCH (test code = MCH) 24.5 pg 27.0-31.0 [facility] LakewayKpjmjvpLWUXUWUMSN9869-28-43 10:58:00 Test Item Value Reference Range Interpretation Comments RBC (test code = RBC) 4.85 4.20-5.40 [facility] LakewayRtjtqqaPKLFPSUCZT3498-14-55 10:58:00 Test Item Value Reference Range Interpretation Comments WBC (test code = WBC) 10.9 3.7-10.4 [facility] LakewayTiuailjLSTBTWANQO6405-76-85 10:58:00 Test Item Value Reference Range Interpretation Comments RDW (test code = RDW) 15.9 11.5-14.5 [facility] LakewayPgsfcyyKQLMOUUZER7928-94-34 10:58:00 Test Item Value Reference Range Interpretation Comments MCHC (test code = MCHC) 31.7 32.0-36.0 [facility] LakewaySrznaanHCITZGRCIU9514-90-17 10:58:00 Test Item Value Reference Range Interpretation Comments Platelet (test code = Platelet) 242 133-450 [facility]2015-12-18 10:58:00 Test Item Value Reference Range Interpretation Comments eGFR (test code = eGFR) [address] [place] 753435-12-18 10:58:00 Test Item Value Reference Range Interpretation Comments AST (test code = AST) 29 See_Comment [Auto mated message] The system which ge nerated this result transmit arvind reference range : <=37. The reference range was not used to interpr et this result as mario l/abnormal. [facility]2015-12-18 10:58:00 Test Item Value Reference Range Interpretation Comments Alk Phos (test code = Alk Phos) 86 39-136 [facility]2015-12-18 10:58:00 Test Item Value Reference Range Interpretation Comments Bili Total (test code = Bili Total) 0.3 0.2-1.3 [facility]2015-12-18 10:58:00 Test Item Value Reference Range Interpretation Comments ALT (test code = ALT) 50 See_Comment [Auto mated message] The system which ge nerated this result transmit arvind reference range : <=65. The reference range was not used to interpr et this result as mario l/abnormal. [facility]2015-12-18 10:58:00 Test Item Value Reference Range Interpretation Comments Sodium Lvl (test code = Sodium Lvl) 136 135-145 [facility]2015-12-18 10:58:00 Test Item Value Reference Range Interpretation Comments Potassium Lvl (test code = Potassium 4.0 3.5-5.1 Lvl) [facility]2015-12-18 10:58:00 Test Item Value Reference Range Interpretation Comments Creatinine Lvl (test code = Creatinine 0.62 0.50-1.40 Lvl) [facility]2015-12-18 10:58:00 Test Item Value Reference Range Interpretation Comments Glucose Lvl (test code = Glucose Lvl) 101 70-99 [facility]2015-12-18 10:58:00 Test Item Value Reference Range Interpretation Comments BUN (test code = BUN) 5 7-22 [facility]2015-12-18 10:58:00 Test Item Value Reference Range Interpretation Comments Total Protein (test code = Total 5.8 6.4-8.4 Protein) [facility]2015-12-18 10:58:00 Test Item Value Reference Range Interpretation Comments Albumin Lvl (test code = Albumin Lvl) 3.2 3.5-5.0 [facility]2015-12-18 10:58:00 Test Item Value Reference Range Interpretation Comments Chloride Lvl (test code = Chloride Lvl) 100 95-109 [facility]2015-12-18 10:58:00 Test Item Value Reference Range Interpretation Comments Calcium Lvl (test code = Calcium Lvl) 8.6 8.5-10.5 [facility]2015-12-18 10:58:00 Test Item Value Reference Range Interpretation Comments CO2 (test code = CO2) 27 24-32 [facility]2015-12-18 10:58:00 Test Item Value Reference Range Interpretation Comments B/C Ratio (test code = B/C Ratio) 8 6-25 [facility]2015-12-18 10:58:00 Test Item Value Reference Range Interpretation Comments Globulin (test code = Globulin) 2.6 2.0-4.0 [facility]2015-12-18 10:58:00 Test Item Value Reference Range Interpretation Comments A/G Ratio (test code = A/G Ratio) 1.2 0.7-1.6 [facility]2015-12-18 10:58:00 Test Item Value Reference Range Interpretation Comments AGAP (test code = AGAP) 13.0 10.0-20.0 [facility] LakewayZegwunqOWEQLPWOSL5399-06-96 10:58:00 Test Item Value Reference Range Interpretation Comments Segs (test code = Segs) 74.2 45.0-75.0 [facility] LakewayEyrhhygWDVLSYUPPG5771-32-44 10:58:00 Test Item Value Reference Range Interpretation Comments Lymphocytes (test code = Lymphocytes) 18.3 20.0-40.0 [facility] LakewayFyqgoyqUHRJKNIIQN9758-34-89 10:58:00 Test Item Value Reference Range Interpretation Comments Monocytes (test code = Monocytes) 7.0 2.0-12.0 [facility] LakewayDxtvebgLIPBEAWLQG9324-96-93 10:58:00 Test Item Value Reference Range Interpretation Comments Basophils (test code = 0.3 See_Comment [Aut omated message] The Basophils) system which ge nerated this result tra nsmitted reference range : <=1.0. The reference r kat was not used to int erpret this result as normal/abnormal . [facility] LakewayXrggpjqORVMGDUVYH9996-29-25 10:58:00 Test Item Value Reference Range Interpretation Comments Segs-Bands # (test code = Segs-Bands #) 8.1 1.5-8.1 [facility] LakewayHkxlvdkPUUBJVETEX0445-93-60 10:58:00 Test Item Value Reference Range Interpretation Comments Eosinophils (test code = 0.2 See_Comment [A utomated message] The Eosinophils) system which ge nerated this result tra nsmitted reference range : <=4.0. The reference r kat was not used to int erpret this result as normal/abnormal . [facility] LakewayOemhiwvJYZIXLGOGV0097-73-82 10:58:00 Test Item Value Reference Range Interpretation Comments Monocytes # (test code 0.8 See_Comment [Aut omated message] The = Monocytes #) system which generated this result tra nsmitted reference range : <=0.8. The reference r kat was not used to int erpret this result as normal/abnormal . [facility] LakewayPyodvmbZMREYEZHTG4305-53-25 10:58:00 Test Item Value Reference Range Interpretation Comments Lymphocytes # (test code = Lymphocytes 2.0 1.0-5.5 #) [facility] LakewayNbpvxsgNHWQIBHPNC5067-39-95 10:58:00 Test Item Value Reference Range Interpretation Comments Microcyte (test code = 1+ *ABN*(08/16/15 Microcyte) 4:58 AM) [facility] LakewayGqucbmyLATFRFOCMF2226-93-11 10:58:00 Test Item Value Reference Range Interpretation Comments MPV (test code = MPV) 8.9 7.4-10.4 [facility] LakewayXdabhxqCLDITYBBOQ0444-83-23 10:58:00 Test Item Value Reference Range Interpretation Comments MCV (test code = MCV) 77.3 80.0-98.0 [facility] LakewayXzladnjMMQGVFOGHK6644-28-70 10:58:00 Test Item Value Reference Range Interpretation Comments Hgb (test code = Hgb) 11.9 12.0-16.0 [facility] LakewayLopxiylJKVLXQXQUV6771-72-59 10:58:00 Test Item Value Reference Range Interpretation Comments Hct (test code = Hct) 37.5 36.0-48.0 [facility] LakewayCogbvtoFLCCXFHJFE6692-89-39 10:58:00 Test Item Value Reference Range Interpretation Comments MCH (test code = MCH) 24.5 pg 27.0-31.0 [facility] LakewaySutldxeHECEQGVDAX7568-00-03 10:58:00 Test Item Value Reference Range Interpretation Comments RBC (test code = RBC) 4.85 4.20-5.40 [facility] LakewayLxugdtpSSVJYKWGRK1270-68-76 10:58:00 Test Item Value Reference Range Interpretation Comments WBC (test code = WBC) 10.9 3.7-10.4 [facility] LakewayLlaaxmvIUAXVPMBQY3077-89-89 10:58:00 Test Item Value Reference Range Interpretation Comments RDW (test code = RDW) 15.9 11.5-14.5 [facility] LakewayFizqpqoFYWGJAUXWA0048-38-94 10:58:00 Test Item Value Reference Range Interpretation Comments MCHC (test code = MCHC) 31.7 32.0-36.0 [facility] LakewayHcnlbjkOKXBIYUGJH2365-91-43 10:58:00 Test Item Value Reference Range Interpretation Comments Platelet (test code = Platelet) 242 133-450 [facility]2015-12-14 15:29:00 Test Item Value Reference Range Interpretation Comments eGFR (test code = eGFR) 101 [facility]2015-12-14 15:29:00 Test Item Value Reference Range Interpretation Comments Creatinine Lvl (test code = Creatinine 0.81 0.50-1.40 Lvl) [facility]2015-12-14 15:29:00 Test Item Value Reference Range Interpretation Comments CO2 (test code = CO2) 27 24-32 [facility]2015-12-14 15:29:00 Test Item Value Reference Range Interpretation Comments Calcium Lvl (test code = Calcium Lvl) 9.7 8.5-10.5 [facility]2015-12-14 15:29:00 Test Item Value Reference Range Interpretation Comments Chloride Lvl (test code = Chloride Lvl) 100 95-109 [facility]2015-12-14 15:29:00 Test Item Value Reference Range Interpretation Comments BUN (test code = BUN) 13 7-22 [facility]2015-12-14 15:29:00 Test Item Value Reference Range Interpretation Comments Glucose Lvl (test code = Glucose Lvl) 89 70-99 [facility]2015-12-14 15:29:00 Test Item Value Reference Range Interpretation Comments Potassium Lvl (test code = Potassium 4.2 3.5-5.1 Lvl) [facility]2015-12-14 15:29:00 Test Item Value Reference Range Interpretation Comments Sodium Lvl (test code = Sodium Lvl) 134 135-145 [facility]2015-12-14 15:29:00 Test Item Value Reference Range Interpretation Comments AGAP (test code = AGAP) 11.2 10.0-20.0 [facility] LakewayQjxmuvaWJYBNDGYBS9013-84-24 15:29:00 Test Item Value Reference Range Interpretation Comments MPV (test code = MPV) 9.2 7.4-10.4 [facility] LakewayBbuhuugYUCMOSBSFZ6563-49-93 15:29:00 Test Item Value Reference Range Interpretation Comments Platelet (test code = Platelet) 307 133-450 [facility] LakewayPxrmfssNZPGCUJCBM0631-08-46 15:29:00 Test Item Value Reference Range Interpretation Comments MCH (test code = MCH) 24.3 pg 27.0-31.0 [facility] LakewayAikgieoDJPQMNSQYH3476-24-20 15:29:00 Test Item Value Reference Range Interpretation Comments RDW (test code = RDW) 15.7 11.5-14.5 [facility] LakewayTgczmtiMKGKJJUIJQ5324-17-23 15:29:00 Test Item Value Reference Range Interpretation Comments MCHC (test code = MCHC) 31.2 32.0-36.0 [facility] LakewayFlkragoJXMAEZSXZO6876-21-92 15:29:00 Test Item Value Reference Range Interpretation Comments MCV (test code = MCV) 78.0 80.0-98.0 [facility] LakewayVrepcwzRGNBSATIYS0562-79-72 15:29:00 Test Item Value Reference Range Interpretation Comments WBC (test code = WBC) 8.6 3.7-10.4 [place] 707135-12-14 15:29:00 Test Item Value Reference Range Interpretation Comments Hgb (test code = Hgb) 13.2 12.0-16.0 [facility] LakewayIeejsbfLLUDTRAIVW5926-57-02 15:29:00 Test Item Value Reference Range Interpretation Comments RBC (test code = RBC) 5.41 4.20-5.40 [facility] LakewayFabvlnwSKMSYFTNBA1919-85-36 15:29:00 Test Item Value Reference Range Interpretation Comments Hct (test code = Hct) 42.1 36.0-48.0 [facility] LakewayUwprzfzSCJVZRKHYP3110-96-60 15:29:00 Test Item Value Reference Range Interpretation Comments Lymphocytes # (test code = Lymphocytes 3.2 1.0-5.5 #) [facility] LakewayYlvdanxHTAOCZJUEK2101-89-05 15:29:00 Test Item Value Reference Range Interpretation Comments Eosinophils # (test code 0.1 See_Comment [A utomated message] The = Eosinophils #) system whic h generated this result tra nsmitted reference range : <=0.5. The reference r kat was not used to int erpret this result as normal/abnormal . [facility] LakewayZgbwxwyYFEDFMZKJA1358-69-45 15:29:00 Test Item Value Reference Range Interpretation Comments Monocytes # (test code 0.8 See_Comment [Aut omated message] The = Monocytes #) system which generated this result tra nsmitted reference range : <=0.8. The reference r kat was not used to int erpret this result as normal/abnormal . [facility] LakewayCjfooeyIQWFOEOEJU1726-07-10 15:29:00 Test Item Value Reference Range Interpretation Comments Basophils (test code = 0.7 See_Comment [Aut omated message] The Basophils) system which ge nerated this result tra nsmitted reference range : <=1.0. The reference r kat was not used to int erpret this result as normal/abnormal . [facility] LakewayLapdjtqLAIRUSVRJI3159-72-47 15:29:00 Test Item Value Reference Range Interpretation Comments Segs-Bands # (test code = Segs-Bands #) 4.4 1.5-8.1 [facility] LakewayWemgkmvHHXUMTCUDE7744-59-24 15:29:00 Test Item Value Reference Range Interpretation Comments Eosinophils (test code = 1.2 See_Comment [A utomated message] The Eosinophils) system which ge nerated this result tra nsmitted reference range : <=4.0. The reference r kat was not used to int erpret this result as normal/abnormal . [facility] CenterIsntvkcJOXOLYUSTN7850-50-10 15:29:00 Test Item Value Reference Range Interpretation Comments Lymphocytes (test code = Lymphocytes) 37.4 20.0-40.0 [facility] CenterOxygeuoQSSVKGYMUA3795-24-45 15:29:00 Test Item Value Reference Range Interpretation Comments Monocytes (test code = Monocytes) 8.9 2.0-12.0 [facility] CenterQzpstydHILDZUMQSR9000-31-06 15:29:00 Test Item Value Reference Range Interpretation Comments Segs (test code = Segs) 51.8 45.0-75.0 [facility]ctwflsMSOJEYKMKH6466-96-65 15:29:00 Test Item Value Reference Range Interpretation Comments Microcyte (test code = 1+ *ABN*(08/12/15 Microcyte) 9:29 AM) [facility] HospitalElmqjktVYVLEZTOAN8914-80-41 15:29:00 Test Item Value Reference Range Interpretation Comments Basophils # (test code 0.1 See_Comment [Aut omated message] The = Basophils #) system which generated this result tra nsmitted reference range : <=0.2. The reference r kat was not used to int erpret this result as normal/abnormal . [facility] IUZV3831-51-89 15:29:00 Test Item Value Reference Range Interpretation Comments U Preg (test code = U Negative (08/12/15 9:29 Preg) AM) [facility] CenterCHEM VHSPD6450-76-27 15:29:00 Test Item Value Reference Range Interpretation Comments eGFR (test code = eGFR) 101 [facility]CHE[facility] GJKIV2614-63-36 15:29:00 Test Item Value Reference Range Interpretation Comments Creatinine Lvl (test code = Creatinine 0.81 0.50-1.40 Lvl) [facility]annCHE[facility] UBJKQ9106-09-31 15:29:00 Test Item Value Reference Range Interpretation Comments CO2 (test code = CO2) 27 24-32 [facility]annCHEM TOTKE0688-90-86 15:29:00 Test Item Value Reference Range Interpretation Comments Calcium Lvl (test code = Calcium Lvl) 9.7 8.5-10.5 [facility]annCHE[facility] MGMXT8180-05-03 15:29:00 Test Item Value Reference Range Interpretation Comments Chloride Lvl (test code = Chloride Lvl) 100 95-109 [facility]2015-12-14 15:29:00 Test Item Value Reference Range Interpretation Comments BUN (test code = BUN) 13 7-22 [facility]2015-12-14 15:29:00 Test Item Value Reference Range Interpretation Comments Glucose Lvl (test code = Glucose Lvl) 89 70-99 [facility]2015-12-14 15:29:00 Test Item Value Reference Range Interpretation Comments Potassium Lvl (test code = Potassium 4.2 3.5-5.1 Lvl) [facility]2015-12-14 15:29:00 Test Item Value Reference Range Interpretation Comments Sodium Lvl (test code = Sodium Lvl) 134 135-145 [facility]2015-12-14 15:29:00 Test Item Value Reference Range Interpretation Comments AGAP (test code = AGAP) 11.2 10.0-20.0 [facility] LakewayGpxunqkHFONHGWIAK4427-16-16 15:29:00 Test Item Value Reference Range Interpretation Comments MPV (test code = MPV) 9.2 7.4-10.4 [facility] LakewayPcfwrfyHYCCMQXOQR3811-13-75 15:29:00 Test Item Value Reference Range Interpretation Comments Platelet (test code = Platelet) 307 133-450 [facility] LakewayYxnkjqxMBXFDSQDFU2818-11-18 15:29:00 Test Item Value Reference Range Interpretation Comments MCH (test code = MCH) 24.3 pg 27.0-31.0 [facility] LakewayDprfuxkSIMNIIPSXZ2582-95-48 15:29:00 Test Item Value Reference Range Interpretation Comments RDW (test code = RDW) 15.7 11.5-14.5 [facility] LakewayCrwsctfLOBLNMKCSN0715-45-02 15:29:00 Test Item Value Reference Range Interpretation Comments MCHC (test code = MCHC) 31.2 32.0-36.0 [facility] LakewayItvnxnqUPOWWFGKGQ4773-95-60 15:29:00 Test Item Value Reference Range Interpretation Comments MCV (test code = MCV) 78.0 80.0-98.0 [place] 707135-12-14 15:29:00 Test Item Value Reference Range Interpretation Comments WBC (test code = WBC) 8.6 3.7-10.4 [facility] LakewaySprbecwLMUMHGLSMF1413-48-80 15:29:00 Test Item Value Reference Range Interpretation Comments Hgb (test code = Hgb) 13.2 12.0-16.0 [facility] LakewayDhnjkjzDYMABVVJQV2105-84-55 15:29:00 Test Item Value Reference Range Interpretation Comments RBC (test code = RBC) 5.41 4.20-5.40 [facility] LakewayBsnqbmyXSEFBXBYVB4812-77-68 15:29:00 Test Item Value Reference Range Interpretation Comments Hct (test code = Hct) 42.1 36.0-48.0 [facility] LakewayZpqdammRIBFCXOZOC0766-15-17 15:29:00 Test Item Value Reference Range Interpretation Comments Lymphocytes # (test code = Lymphocytes 3.2 1.0-5.5 #) [facility] LakewayPdhyhgiJXLDZZLPQZ3531-06-65 15:29:00 Test Item Value Reference Range Interpretation Comments Eosinophils # (test code 0.1 See_Comment [A utomated message] The = Eosinophils #) system whic h generated this result tra nsmitted reference range : <=0.5. The reference r kat was not used to int erpret this result as normal/abnormal . [facility] LakewayLnvwqiyUXVRPODJYS9175-95-12 15:29:00 Test Item Value Reference Range Interpretation Comments Monocytes # (test code 0.8 See_Comment [Aut omated message] The = Monocytes #) system which generated this result tra nsmitted reference range : <=0.8. The reference r kat was not used to int erpret this result as normal/abnormal . [facility] LakewayIyekzzkKBNPYBJHWA8822-28-32 15:29:00 Test Item Value Reference Range Interpretation Comments Basophils (test code = 0.7 See_Comment [Aut omated message] The Basophils) system which ge nerated this result tra nsmitted reference range : <=1.0. The reference r kat was not used to int erpret this result as normal/abnormal . [facility]wayPjqpzmbXIJZHYBAYG7370-17-84 15:29:00 Test Item Value Reference Range Interpretation Comments Segs-Bands # (test code = Segs-Bands #) 4.4 1.5-8.1 [facility]waySnkjfmkSVMJDERAXR2966-00-09 15:29:00 Test Item Value Reference Range Interpretation Comments Eosinophils (test code = 1.2 See_Comment [A utomated message] The Eosinophils) system which ge nerated this result tra nsmitted reference range : <=4.0. The reference r kat was not used to int erpret this result as normal/abnormal . [facility]aktrQHMXQGOTLH9474-92-[facility] 15:29:00 Test Item Value Reference Range Interpretation Comments Lymphocytes (test code = Lymphocytes) 37.4 20.0-40.0 [facility] HospitalBjjmngyXNZNVHWAMP9824-55-78 15:29:00 Test Item Value Reference Range Interpretation Comments Monocytes (test code = Monocytes) 8.9 2.0-12.0 [facility] HospitalUxgxnoiWTKQNHRMAU9141-25-48 15:29:00 Test Item Value Reference Range Interpretation Comments Segs (test code = Segs) 51.8 45.0-75.0 [facility]wayThcjueiYILRAWFSEV5874-83-84 15:29:00 Test Item Value Reference Range Interpretation Comments Microcyte (test code = 1+ *ABN*(08/12/15 Microcyte) 9:29 AM) [facility]wayEmpwdhtHGFBVXEJDG4701-44-48 15:29:00 Test Item Value Reference Range Interpretation Comments Basophils # (test code 0.1 See_Comment [Aut omated message] The = Basophils #) system which generated this result tra nsmitted reference range : <=0.2. The reference r kat was not used to int erpret this result as normal/abnormal . [facility] [id number] 15:29:00 Test Item Value Reference Range Interpretation Comments U Preg (test code = U Negative (08/12/15 9:29 Preg) AM) [facility] [id number] 15:29:00 Test Item Value Reference Range Interpretation Comments eGFR (test code = eGFR) 101 [facility] [id number] 15:29:00 Test Item Value Reference Range Interpretation Comments Creatinine Lvl (test code = Creatinine 0.81 0.50-1.40 Lvl) [facility] [id number] 15:29:00 Test Item Value Reference Range Interpretation Comments CO2 (test code = CO2) 27 24-32 [facility] [id number] 15:29:00 Test Item Value Reference Range Interpretation Comments Calcium Lvl (test code = Calcium Lvl) 9.7 8.5-10.5 [facility] YYKCP9428-01-15 15:29:00 Test Item Value Reference Range Interpretation Comments Chloride Lvl (test code = Chloride Lvl) 100 95-109 [facility]2015-12-14 15:29:00 Test Item Value Reference Range Interpretation Comments BUN (test code = BUN) 13 7-22 [facility]2015-12-14 15:29:00 Test Item Value Reference Range Interpretation Comments Glucose Lvl (test code = Glucose Lvl) 89 70-99 [facility]2015-12-14 15:29:00 Test Item Value Reference Range Interpretation Comments Potassium Lvl (test code = Potassium 4.2 3.5-5.1 Lvl) [facility]2015-12-14 15:29:00 Test Item Value Reference Range Interpretation Comments Sodium Lvl (test code = Sodium Lvl) 134 135-145 [facility]2015-12-14 15:29:00 Test Item Value Reference Range Interpretation Comments AGAP (test code = AGAP) 11.2 10.0-20.0 [facility]wayRspleloLIPDLXVTQF5536-20-30 15:29:00 Test Item Value Reference Range Interpretation Comments MPV (test code = MPV) 9.2 7.4-10.4 [facility]wayEtkzsqfQQSQKOBUJM4899-63-08 15:29:00 Test Item Value Reference Range Interpretation Comments Platelet (test code = Platelet) 307 133-450 [facility]wayWqpgbweBKQCAEAFTU0670-08-46 15:29:00 Test Item Value Reference Range Interpretation Comments MCH (test code = MCH) 24.3 pg 27.0-31.0 [facility] LakewayTplwyujCWSIPDQZWS8102-77-49 15:29:00 Test Item Value Reference Range Interpretation Comments RDW (test code = RDW) 15.7 11.5-14.5 [facility] LakewayBtbowlkYPCMQJESVV8840-30-45 15:29:00 Test Item Value Reference Range Interpretation Comments MCHC (test code = MCHC) 31.2 32.0-36.0 [facility] LakewayUnshnglEMYUCMTHSO7866-25-12 15:29:00 Test Item Value Reference Range Interpretation Comments MCV (test code = MCV) 78.0 80.0-98.0 [facility] LakewayBvoxawlXEREIMJMNW7943-71-65 15:29:00 Test Item Value Reference Range Interpretation Comments WBC (test code = WBC) 8.6 3.7-10.4 [facility]wayMdrynvbYJTIXKUFWC5506-15-15 15:29:00 Test Item Value Reference Range Interpretation Comments Hgb (test code = Hgb) 13.2 12.0-16.0 [facility]wayWzrtmzmFUHZNXVUKS6511-66-20 15:29:00 Test Item Value Reference Range Interpretation Comments RBC (test code = RBC) 5.41 4.20-5.40 [facility]wayInhczvbWJVGFPVQSL4777-22-03 15:29:00 Test Item Value Reference Range Interpretation Comments Hct (test code = Hct) 42.1 36.0-48.0 [facility] LakewayDmxuywzARTZOKKVIX2194-04-49 15:29:00 Test Item Value Reference Range Interpretation Comments Lymphocytes # (test code = Lymphocytes 3.2 1.0-5.5 #) [facility] LakewayOyzhkazTDCRNMUCCT6568-31-71 15:29:00 Test Item Value Reference Range Interpretation Comments Eosinophils # (test code 0.1 See_Comment [A utomated message] The = Eosinophils #) system wh h generated this result tra nsmitted reference range : <=0.5. The reference r kat was not used to int erpret this result as normal/abnormal . [facility] LakewayRgmlyhjFZHJOCRSLS5362-62-35 15:29:00 Test Item Value Reference Range Interpretation Comments Monocytes # (test code 0.8 See_Comment [Aut omated message] The = Monocytes #) system which generated this result tra nsmitted reference range : <=0.8. The reference r kat was not used to int erpret this result as normal/abnormal . [facility]wayOqtubjjGGYCCTIELZ8157-42-18 15:29:00 Test Item Value Reference Range Interpretation Comments Basophils (test code = 0.7 See_Comment [Aut omated message] The Basophils) system which ge nerated this result tra nsmitted reference range : <=1.0. The reference r kat was not used to int erpret this result as normal/abnormal . [facility] LakewayDucjvjfXHEZERHDLS4838-45-67 15:29:00 Test Item Value Reference Range Interpretation Comments Segs-Bands # (test code = Segs-Bands #) 4.4 1.5-8.1 [facility] LakewayYyqbydoZLDBBVOKHK9026-63-59 15:29:00 Test Item Value Reference Range Interpretation Comments Eosinophils (test code = 1.2 See_Comment [A utomated message] The Eosinophils) system which ge nerated this result tra nsmitted reference range : <=4.0. The reference r kat was not used to int erpret this result as normal/abnormal . [facility] HospitalNcpqgvdUQQYFJXNTZ1635-67-50 15:29:00 Test Item Value Reference Range Interpretation Comments Lymphocytes (test code = Lymphocytes) 37.4 20.0-40.0 [facility] HospitalAdaodqcIQSKTIGKWY7002-22-85 15:29:00 Test Item Value Reference Range Interpretation Comments Monocytes (test code = Monocytes) 8.9 2.0-12.0 [facility] HospitalPgwtmjePUUTJAJHJZ9788-79-07 15:29:00 Test Item Value Reference Range Interpretation Comments Segs (test code = Segs) 51.8 45.0-75.0 [facility] HospitalVfokvkoZNTRFEHUAA2820-47-93 15:29:00 Test Item Value Reference Range Interpretation Comments Microcyte (test code = 1+ *ABN*(08/12/15 Microcyte) 9:29 AM) [facility] HospitalNmjnhjaCBBJUFBPXD4379-16-82 15:29:00 Test Item Value Reference Range Interpretation Comments Basophils # (test code 0.1 See_Comment [Aut omated message] The = Basophils #) system which generated this result tra nsmitted reference range : <=0.2. The reference r kat was not used to int erpret this result as normal/abnormal . [facility] [id number] 15:29:00 Test Item Value Reference Range Interpretation Comments U Preg (test code = U Negative (08/12/15 9:29 Preg) AM) [facility] [id number] 15:29:00 Test Item Value Reference Range Interpretation Comments eGFR (test code = eGFR) 101 [facility] [id number] 15:29:00 Test Item Value Reference Range Interpretation Comments Creatinine Lvl (test code = Creatinine 0.81 0.50-1.40 Lvl) [facility] TISEC6527-04-13 15:29:00 Test Item Value Reference Range Interpretation Comments CO2 (test code = CO2) 27 24-32 [facility] [id number] 15:29:00 Test Item Value Reference Range Interpretation Comments Calcium Lvl (test code = Calcium Lvl) 9.7 8.5-10.5 [facility] [id number] 15:29:00 Test Item Value Reference Range Interpretation Comments Chloride Lvl (test code = Chloride Lvl) 100 95-109 [facility]2015-12-14 15:29:00 Test Item Value Reference Range Interpretation Comments BUN (test code = BUN) 13 7-22 [facility]2015-12-14 15:29:00 Test Item Value Reference Range Interpretation Comments Glucose Lvl (test code = Glucose Lvl) 89 70-99 [facility]2015-12-14 15:29:00 Test Item Value Reference Range Interpretation Comments Potassium Lvl (test code = Potassium 4.2 3.5-5.1 Lvl) [facility]2015-12-14 15:29:00 Test Item Value Reference Range Interpretation Comments Sodium Lvl (test code = Sodium Lvl) 134 135-145 [facility]2015-12-14 15:29:00 Test Item Value Reference Range Interpretation Comments AGAP (test code = AGAP) 11.2 10.0-20.0 [facility]wayPwycvlyZYXATSWIQB4256-01-32 15:29:00 Test Item Value Reference Range Interpretation Comments MPV (test code = MPV) 9.2 7.4-10.4 [facility]wayQsmhxwuFBEKHCVXOS7428-40-85 15:29:00 Test Item Value Reference Range Interpretation Comments Platelet (test code = Platelet) 307 133-450 [facility] LakewayNpncqqoPAXUBEHCTD5134-53-79 15:29:00 Test Item Value Reference Range Interpretation Comments MCH (test code = MCH) 24.3 pg 27.0-31.0 [facility]wayOihmjmxPJSVODUEBR1215-25-71 15:29:00 Test Item Value Reference Range Interpretation Comments RDW (test code = RDW) 15.7 11.5-14.5 [facility] LakewayZyqpaprONMIPOTXAV5807-97-80 15:29:00 Test Item Value Reference Range Interpretation Comments MCHC (test code = MCHC) 31.2 32.0-36.0 [facility] LakewayDgkofmmXXUVSMMEZH8464-99-64 15:29:00 Test Item Value Reference Range Interpretation Comments MCV (test code = MCV) 78.0 80.0-98.0 [place] 707135-12-14 15:29:00 Test Item Value Reference Range Interpretation Comments WBC (test code = WBC) 8.6 3.7-10.4 [facility] LakewayAhxnwcoSYEMZLOZGZ6610-07-20 15:29:00 Test Item Value Reference Range Interpretation Comments Hgb (test code = Hgb) 13.2 12.0-16.0 [facility] LakewayYbztfgjNTNJUKDOYU4988-21-56 15:29:00 Test Item Value Reference Range Interpretation Comments RBC (test code = RBC) 5.41 4.20-5.40 [facility] LakewayCsnenrkLHZAPZNMAC8072-11-88 15:29:00 Test Item Value Reference Range Interpretation Comments Hct (test code = Hct) 42.1 36.0-48.0 [facility] LakewayQoknupsBTCFCMHIAX4678-91-38 15:29:00 Test Item Value Reference Range Interpretation Comments Lymphocytes # (test code = Lymphocytes 3.2 1.0-5.5 #) [facility]wayGpwmqpaNYYOHPGMUS5585-46-24 15:29:00 Test Item Value Reference Range Interpretation Comments Eosinophils # (test code 0.1 See_Comment [A utomated message] The = Eosinophils #) system wh h generated this result tra nsmitted reference range : <=0.5. The reference r kat was not used to int erpret this result as normal/abnormal . [facility]wayPgdoqgeDMFBSGXJXY9208-43-89 15:29:00 Test Item Value Reference Range Interpretation Comments Monocytes # (test code 0.8 See_Comment [Aut omated message] The = Monocytes #) system which generated this result tra nsmitted reference range : <=0.8. The reference r kat was not used to int erpret this result as normal/abnormal . [facility] LakewayCizdbuyCIAMQCPMQV1876-61-65 15:29:00 Test Item Value Reference Range Interpretation Comments Basophils (test code = 0.7 See_Comment [Aut omated message] The Basophils) system which ge nerated this result tra nsmitted reference range : <=1.0. The reference r kat was not used to int erpret this result as normal/abnormal . [facility] LakewayDlckgvnMSLIPRUPRW6053-43-89 15:29:00 Test Item Value Reference Range Interpretation Comments Segs-Bands # (test code = Segs-Bands #) 4.4 1.5-8.1 [facility] LakewayJvdzcahEQOEHCTYCX8390-23-33 15:29:00 Test Item Value Reference Range Interpretation Comments Eosinophils (test code = 1.2 See_Comment [A utomated message] The Eosinophils) system which ge nerated this result tra nsmitted reference range : <=4.0. The reference r kat was not used to int erpret this result as normal/abnormal . [facility] HospitalHvdvwnjNGGUCTHFJH6699-40-88 15:29:00 Test Item Value Reference Range Interpretation Comments Lymphocytes (test code = Lymphocytes) 37.4 20.0-40.0 [facility] HospitalQbgmlcpRXWVADSMWG1222-64-79 15:29:00 Test Item Value Reference Range Interpretation Comments Monocytes (test code = Monocytes) 8.9 2.0-12.0 [facility] HospitalPiqmpoqVTKDVIYNUV8735-28-49 15:29:00 Test Item Value Reference Range Interpretation Comments Segs (test code = Segs) 51.8 45.0-75.0 [facility] LakewayLexozedCBQGGIHUWU7274-05-43 15:29:00 Test Item Value Reference Range Interpretation Comments Microcyte (test code = 1+ *ABN*(08/12/15 Microcyte) 9:29 AM) [facility] HospitalFnhvdkeRMNELHAEVJ1697-18-59 15:29:00 Test Item Value Reference Range Interpretation Comments Basophils # (test code 0.1 See_Comment [Aut omated message] The = Basophils #) system which generated this result tra nsmitted reference range : <=0.2. The reference r kat was not used to int erpret this result as normal/abnormal . [facility] [id number] 15:29:00 Test Item Value Reference Range Interpretation Comments U Preg (test code = U Negative (08/12/15 9:29 Preg) AM) [facility] [id number] 15:29:00 Test Item Value Reference Range Interpretation Comments eGFR (test code = eGFR) 101 [facility] [id number] 15:29:00 Test Item Value Reference Range Interpretation Comments Creatinine Lvl (test code = Creatinine 0.81 0.50-1.40 Lvl) [facility] [id number] 15:29:00 Test Item Value Reference Range Interpretation Comments CO2 (test code = CO2) 27 24-32 [facility] [id number] 15:29:00 Test Item Value Reference Range Interpretation Comments Calcium Lvl (test code = Calcium Lvl) 9.7 8.5-10.5 [facility]2015-12-14 15:29:00 Test Item Value Reference Range Interpretation Comments Chloride Lvl (test code = Chloride Lvl) 100 95-109 [facility]2015-12-14 15:29:00 Test Item Value Reference Range Interpretation Comments BUN (test code = BUN) 13 7-22 [facility]2015-12-14 15:29:00 Test Item Value Reference Range Interpretation Comments Glucose Lvl (test code = Glucose Lvl) 89 70-99 [facility]2015-12-14 15:29:00 Test Item Value Reference Range Interpretation Comments Potassium Lvl (test code = Potassium 4.2 3.5-5.1 Lvl) [facility]2015-12-14 15:29:00 Test Item Value Reference Range Interpretation Comments Sodium Lvl (test code = Sodium Lvl) 134 135-145 [facility]2015-12-14 15:29:00 Test Item Value Reference Range Interpretation Comments AGAP (test code = AGAP) 11.2 10.0-20.0 [facility]wayFeueaybEQZSXMECZC5860-33-54 15:29:00 Test Item Value Reference Range Interpretation Comments MPV (test code = MPV) 9.2 7.4-10.4 [facility] LakewayEfibtefRCJMNBENWF5152-06-78 15:29:00 Test Item Value Reference Range Interpretation Comments Platelet (test code = Platelet) 307 133-450 [facility] LakewayZyjothdXKZXEPWURV1845-74-09 15:29:00 Test Item Value Reference Range Interpretation Comments MCH (test code = MCH) 24.3 pg 27.0-31.0 [facility]wayPxkgfvhMRTBCRAOES2047-05-76 15:29:00 Test Item Value Reference Range Interpretation Comments RDW (test code = RDW) 15.7 11.5-14.5 [facility]wayEeczcrhJNTYQCNNTZ2038-32-91 15:29:00 Test Item Value Reference Range Interpretation Comments MCHC (test code = MCHC) 31.2 32.0-36.0 [facility] LakewayLtaybouTTBAYWNVGT8142-85-20 15:29:00 Test Item Value Reference Range Interpretation Comments MCV (test code = MCV) 78.0 80.0-98.0 [facility] LakewayLpqkxslFXXZAXNKUU5168-24-01 15:29:00 Test Item Value Reference Range Interpretation Comments WBC (test code = WBC) 8.6 3.7-10.4 [facility] LakewayVteuworBJZTFIPGZZ1563-63-19 15:29:00 Test Item Value Reference Range Interpretation Comments Hgb (test code = Hgb) 13.2 12.0-16.0 [facility]wayOscdejwABVCXMMOFJ1559-67-18 15:29:00 Test Item Value Reference Range Interpretation Comments RBC (test code = RBC) 5.41 4.20-5.40 [facility] LakewayBlmmmkdPTPWVRTSIQ0311-52-41 15:29:00 Test Item Value Reference Range Interpretation Comments Hct (test code = Hct) 42.1 36.0-48.0 [facility] LakewayJnggbtuUFNQMPBGZY2895-35-46 15:29:00 Test Item Value Reference Range Interpretation Comments Lymphocytes # (test code = Lymphocytes 3.2 1.0-5.5 #) [facility] LakewaySfdllxfFPWXWWLYJP8987-27-67 15:29:00 Test Item Value Reference Range Interpretation Comments Eosinophils # (test code 0.1 See_Comment [A utomated message] The = Eosinophils #) system wh h generated this result tra nsmitted reference range : <=0.5. The reference r kat was not used to int erpret this result as normal/abnormal . [facility] LakewayNzqrcgnTGZJXSWKUE9820-43-34 15:29:00 Test Item Value Reference Range Interpretation Comments Monocytes # (test code 0.8 See_Comment [Aut omated message] The = Monocytes #) system which generated this result tra nsmitted reference range : <=0.8. The reference r kat was not used to int erpret this result as normal/abnormal . [facility]wayPpgdpwaVVVJGKKVCC7140-32-95 15:29:00 Test Item Value Reference Range Interpretation Comments Basophils (test code = 0.7 See_Comment [Aut omated message] The Basophils) system which ge nerated this result tra nsmitted reference range : <=1.0. The reference r kat was not used to int erpret this result as normal/abnormal . [facility]wayCcwevjvBGUIMVKWZF9477-83-61 15:29:00 Test Item Value Reference Range Interpretation Comments Segs-Bands # (test code = Segs-Bands #) 4.4 1.5-8.1 [facility] LakewayMunjclhLERKTGVOBM9557-18-25 15:29:00 Test Item Value Reference Range Interpretation Comments Eosinophils (test code = 1.2 See_Comment [A utomated message] The Eosinophils) system which ge nerated this result tra nsmitted reference range : <=4.0. The reference r kat was not used to int erpret this result as normal/abnormal . [facility]XihxlnxWJDQQCQPGP4356-77-32 15:29:00 Test Item Value Reference Range Interpretation Comments Lymphocytes (test code = Lymphocytes) 37.4 20.0-40.0 [facility] HospitalYkcpogmYSKVEBFWNY5330-78-05 15:29:00 Test Item Value Reference Range Interpretation Comments Monocytes (test code = Monocytes) 8.9 2.0-12.0 [facility] HospitalOpwajayZAZJAQTQMH7968-05-10 15:29:00 Test Item Value Reference Range Interpretation Comments Segs (test code = Segs) 51.8 45.0-75.0 [facility] HospitalDhnrspeQXZMIUYASI4871-43-18 15:29:00 Test Item Value Reference Range Interpretation Comments Microcyte (test code = 1+ *ABN*(08/12/15 Microcyte) 9:29 AM) [facility] HospitalFdschomQZEALFZVPC2165-72-98 15:29:00 Test Item Value Reference Range Interpretation Comments Basophils # (test code 0.1 See_Comment [Aut omated message] The = Basophils #) system which generated this result tra nsmitted reference range : <=0.2. The reference r kat was not used to int erpret this result as normal/abnormal . [facility] [id number] 15:29:00 Test Item Value Reference Range Interpretation Comments U Preg (test code = U Negative (08/12/15 9:29 Preg) AM) [facility]CHE[facility] [id number] 15:29:00 Test Item Value Reference Range Interpretation Comments eGFR (test code = eGFR) 101 [facility] SUWLT6885-18-27 15:29:00 Test Item Value Reference Range Interpretation Comments Creatinine Lvl (test code = Creatinine 0.81 0.50-1.40 Lvl) [facility] [id number] 15:29:00 Test Item Value Reference Range Interpretation Comments CO2 (test code = CO2) 27 24-32 [facility] INCQY7291-99-81 15:29:00 Test Item Value Reference Range Interpretation Comments Calcium Lvl (test code = Calcium Lvl) 9.7 8.5-10.5 [place] 753435-12-14 15:29:00 Test Item Value Reference Range Interpretation Comments Chloride Lvl (test code = Chloride Lvl) 100 95-109 [facility]2015-12-14 15:29:00 Test Item Value Reference Range Interpretation Comments BUN (test code = BUN) 13 7-22 [facility]2015-12-14 15:29:00 Test Item Value Reference Range Interpretation Comments Glucose Lvl (test code = Glucose Lvl) 89 70-99 [facility]2015-12-14 15:29:00 Test Item Value Reference Range Interpretation Comments Potassium Lvl (test code = Potassium 4.2 3.5-5.1 Lvl) [facility]2015-12-14 15:29:00 Test Item Value Reference Range Interpretation Comments Sodium Lvl (test code = Sodium Lvl) 134 135-145 [facility]2015-12-14 15:29:00 Test Item Value Reference Range Interpretation Comments AGAP (test code = AGAP) 11.2 10.0-20.0 [facility] LakewayYxitegpJGOKQSLPBM7889-05-20 15:29:00 Test Item Value Reference Range Interpretation Comments MPV (test code = MPV) 9.2 7.4-10.4 [facility] LakewayYojikfcMZICZAUHXN4504-19-96 15:29:00 Test Item Value Reference Range Interpretation Comments Platelet (test code = Platelet) 307 133-450 [facility] LakewayIijfsbvIHEGQXFHUN7486-32-61 15:29:00 Test Item Value Reference Range Interpretation Comments MCH (test code = MCH) 24.3 pg 27.0-31.0 [facility] LakewayVkedrxdXYTACFSXFO8823-28-26 15:29:00 Test Item Value Reference Range Interpretation Comments RDW (test code = RDW) 15.7 11.5-14.5 [facility] LakewayArxemqzDPGNPIOQCA9647-95-05 15:29:00 Test Item Value Reference Range Interpretation Comments MCHC (test code = MCHC) 31.2 32.0-36.0 [facility] LakewayZvxltnfUFDNSWEOWX1779-80-46 15:29:00 Test Item Value Reference Range Interpretation Comments MCV (test code = MCV) 78.0 80.0-98.0 [facility] LakewayRaqdynjSXNBVHSXJA5701-29-22 15:29:00 Test Item Value Reference Range Interpretation Comments WBC (test code = WBC) 8.6 3.7-10.4 [facility] LakewayGaxecczBSIFYRPBFN4177-31-88 15:29:00 Test Item Value Reference Range Interpretation Comments Hgb (test code = Hgb) 13.2 12.0-16.0 [facility] LakewayKibipypBEBXJRYWPV4240-32-77 15:29:00 Test Item Value Reference Range Interpretation Comments RBC (test code = RBC) 5.41 4.20-5.40 [facility] [place]KvgyuqoPDSDUCXXMV1524-39-69 15:29:00 Test Item Value Reference Range Interpretation Comments Hct (test code = Hct) 42.1 36.0-48.0 [facility] LakewayDqinwurPWKQPMVYRH5622-78-50 15:29:00 Test Item Value Reference Range Interpretation Comments Lymphocytes # (test code = Lymphocytes 3.2 1.0-5.5 #) [facility] LakewayGygcxbjBKYZHLKSAA2924-16-96 15:29:00 Test Item Value Reference Range Interpretation Comments Eosinophils # (test code 0.1 See_Comment [A utomated message] The = Eosinophils #) system wh h generated this result tra nsmitted reference range : <=0.5. The reference r kat was not used to int erpret this result as normal/abnormal . [facility] LakewayFqeabkxKBLFWKRACE1335-92-98 15:29:00 Test Item Value Reference Range Interpretation Comments Monocytes # (test code 0.8 See_Comment [Aut omated message] The = Monocytes #) system which generated this result tra nsmitted reference range : <=0.8. The reference r kat was not used to int erpret this result as normal/abnormal . [facility] LakewayYezpcbcXOAXTJMDKX4974-22-36 15:29:00 Test Item Value Reference Range Interpretation Comments Basophils (test code = 0.7 See_Comment [Aut omated message] The Basophils) system which ge nerated this result tra nsmitted reference range : <=1.0. The reference r kat was not used to int erpret this result as normal/abnormal . [facility] LakewayWzddqewSRODYSEBNC7299-35-45 15:29:00 Test Item Value Reference Range Interpretation Comments Segs-Bands # (test code = Segs-Bands #) 4.4 1.5-8.1 [facility] LakewaySbaumryXHXBSKYWMP1531-50-04 15:29:00 Test Item Value Reference Range Interpretation Comments Eosinophils (test code = 1.2 See_Comment [A utomated message] The Eosinophils) system which ge nerated this result tra nsmitted reference range : <=4.0. The reference r kat was not used to int erpret this result as normal/abnormal . [facility] CenterVqtswwcGUUBECCAYR0652-96-91 15:29:00 Test Item Value Reference Range Interpretation Comments Lymphocytes (test code = Lymphocytes) 37.4 20.0-40.0 [facility]MuxxbmfTQEAJWDIGI4876-93-94 15:29:00 Test Item Value Reference Range Interpretation Comments Monocytes (test code = Monocytes) 8.9 2.0-12.0 [facility] CenterXdvycjsKGIVKTVYDO0139-87-64 15:29:00 Test Item Value Reference Range Interpretation Comments Segs (test code = Segs) 51.8 45.0-75.0 [facility] CenterQtobdwrNRXDUTINCP0555-63-86 15:29:00 Test Item Value Reference Range Interpretation Comments Microcyte (test code = 1+ *ABN*(08/12/15 Microcyte) 9:29 AM) [facility] CenterQgvlfdgZJCMHFTTME9867-61-87 15:29:00 Test Item Value Reference Range Interpretation Comments Basophils # (test code 0.1 See_Comment [Aut omated message] The = Basophils #) system which generated this result tra nsmitted reference range : <=0.2. The reference r kat was not used to int erpret this result as normal/abnormal . [facility] [id number] 15:29:00 Test Item Value Reference Range Interpretation Comments U Preg (test code = U Negative (08/12/15 9:29 Preg) AM) [facility]annCHEM [id number] 15:29:00 Test Item Value Reference Range Interpretation Comments eGFR (test code = eGFR) 101 [facility]annCHEM JNJXA3727-01-02 15:29:00 Test Item Value Reference Range Interpretation Comments Creatinine Lvl (test code = Creatinine 0.81 0.50-1.40 Lvl) [facility]annCHE[facility] [id number] 15:29:00 Test Item Value Reference Range Interpretation Comments CO2 (test code = CO2) 27 24-32 [facility]annCHE[facility] [id number] 15:29:00 Test Item Value Reference Range Interpretation Comments Calcium Lvl (test code = Calcium Lvl) 9.7 8.5-10.5 [facility]2015-12-14 15:29:00 Test Item Value Reference Range Interpretation Comments Chloride Lvl (test code = Chloride Lvl) 100 95-109 [facility]2015-12-14 15:29:00 Test Item Value Reference Range Interpretation Comments BUN (test code = BUN) 13 7-22 [facility]2015-12-14 15:29:00 Test Item Value Reference Range Interpretation Comments Glucose Lvl (test code = Glucose Lvl) 89 70-99 [facility]2015-12-14 15:29:00 Test Item Value Reference Range Interpretation Comments Potassium Lvl (test code = Potassium 4.2 3.5-5.1 Lvl) [facility]2015-12-14 15:29:00 Test Item Value Reference Range Interpretation Comments Sodium Lvl (test code = Sodium Lvl) 134 135-145 [facility]2015-12-14 15:29:00 Test Item Value Reference Range Interpretation Comments AGAP (test code = AGAP) 11.2 10.0-20.0 [facility] LakewayLasluvlPGJBOLCAWE8745-72-55 15:29:00 Test Item Value Reference Range Interpretation Comments MPV (test code = MPV) 9.2 7.4-10.4 [facility] LakewaySqpjykoHJSFTYITXR4208-31-58 15:29:00 Test Item Value Reference Range Interpretation Comments Platelet (test code = Platelet) 307 133-450 [facility] LakewayYuytyfrROOQQKZDLT0011-81-23 15:29:00 Test Item Value Reference Range Interpretation Comments MCH (test code = MCH) 24.3 pg 27.0-31.0 [facility] LakewayLksggiaWJBJKCLTYY4072-72-41 15:29:00 Test Item Value Reference Range Interpretation Comments RDW (test code = RDW) 15.7 11.5-14.5 [facility] LakewayBkqybydKIPFJSRIVJ8031-99-77 15:29:00 Test Item Value Reference Range Interpretation Comments MCHC (test code = MCHC) 31.2 32.0-36.0 [facility] LakewayLiphampDTTWQOAXGF1991-24-62 15:29:00 Test Item Value Reference Range Interpretation Comments MCV (test code = MCV) 78.0 80.0-98.0 [facility] LakewayBocakmjZEDOFXGPKO8189-39-26 15:29:00 Test Item Value Reference Range Interpretation Comments WBC (test code = WBC) 8.6 3.7-10.4 [facility] LakewayPgckkviWVOGZPOUOW7578-00-93 15:29:00 Test Item Value Reference Range Interpretation Comments Hgb (test code = Hgb) 13.2 12.0-16.0 [facility] LakewayCifrmdzKGXNTBQMCE1056-37-98 15:29:00 Test Item Value Reference Range Interpretation Comments RBC (test code = RBC) 5.41 4.20-5.40 [facility] LakewayUoikmlgJLIQQQDLBY1305-72-53 15:29:00 Test Item Value Reference Range Interpretation Comments Hct (test code = Hct) 42.1 36.0-48.0 [facility] LakewayMjezcxaGNHSPGOIYR2029-11-46 15:29:00 Test Item Value Reference Range Interpretation Comments Lymphocytes # (test code = Lymphocytes 3.2 1.0-5.5 #) [facility] LakewayGoxkndkJNJPSKPDBK0262-38-01 15:29:00 Test Item Value Reference Range Interpretation Comments Eosinophils # (test code 0.1 See_Comment [A utomated message] The = Eosinophils #) system whic h generated this result tra nsmitted reference range : <=0.5. The reference r kat was not used to int erpret this result as normal/abnormal . [facility] LakewayPtvcgcdUBEMUEHHFB7541-61-18 15:29:00 Test Item Value Reference Range Interpretation Comments Monocytes # (test code 0.8 See_Comment [Aut omated message] The = Monocytes #) system which generated this result tra nsmitted reference range : <=0.8. The reference r kat was not used to int erpret this result as normal/abnormal . [facility] LakewayGgvvycoLLRFHTQNBD0324-42-19 15:29:00 Test Item Value Reference Range Interpretation Comments Basophils (test code = 0.7 See_Comment [Aut omated message] The Basophils) system which ge nerated this result tra nsmitted reference range : <=1.0. The reference r kat was not used to int erpret this result as normal/abnormal . [facility] LakewayKtfttkzEGDSMJNLKO2986-79-24 15:29:00 Test Item Value Reference Range Interpretation Comments Segs-Bands # (test code = Segs-Bands #) 4.4 1.5-8.1 [facility] LakewayKzwjmvdQSPDDSFONB9813-63-60 15:29:00 Test Item Value Reference Range Interpretation Comments Eosinophils (test code = 1.2 See_Comment [A utomated message] The Eosinophils) system which ge nerated this result tra nsmitted reference range : <=4.0. The reference r kat was not used to int erpret this result as normal/abnormal . [facility] CenterHkdrriiABWQEEQLSL5040-82-15 15:29:00 Test Item Value Reference Range Interpretation Comments Lymphocytes (test code = Lymphocytes) 37.4 20.0-40.0 [facility] CenterRntvhqbBKRBUFFROB6939-96-90 15:29:00 Test Item Value Reference Range Interpretation Comments Monocytes (test code = Monocytes) 8.9 2.0-12.0 [facility] CenterFretqihDJMSBFDGUX0310-17-02 15:29:00 Test Item Value Reference Range Interpretation Comments Segs (test code = Segs) 51.8 45.0-75.0 [facility]TioknztNSGEFGADWK3787-72-80 15:29:00 Test Item Value Reference Range Interpretation Comments Microcyte (test code = 1+ *ABN*(08/12/15 Microcyte) 9:29 AM) [facility] CenterVadmgbgGLEUVQPYVD0223-37-17 15:29:00 Test Item Value Reference Range Interpretation Comments Basophils # (test code 0.1 See_Comment [Aut omated message] The = Basophils #) system which generated this result tra nsmitted reference range : <=0.2. The reference r kat was not used to int erpret this result as normal/abnormal . [facility] [id number] 15:29:00 Test Item Value Reference Range Interpretation Comments U Preg (test code = U Negative (08/12/15 9:29 Preg) AM) [facility] CenterCHEM [id number] 15:29:00 Test Item Value Reference Range Interpretation Comments eGFR (test code = eGFR) 101 [facility] CenterCHEM PIKUR7367-22-13 15:29:00 Test Item Value Reference Range Interpretation Comments Creatinine Lvl (test code = Creatinine 0.81 0.50-1.40 Lvl) [facility]annCHE[facility] [id number] 15:29:00 Test Item Value Reference Range Interpretation Comments CO2 (test code = CO2) 27 24-32 [facility]annCHE[facility] [id number] 15:29:00 Test Item Value Reference Range Interpretation Comments Calcium Lvl (test code = Calcium Lvl) 9.7 8.5-10.5 [facility]2015-12-14 15:29:00 Test Item Value Reference Range Interpretation Comments Chloride Lvl (test code = Chloride Lvl) 100 95-109 [facility]2015-12-14 15:29:00 Test Item Value Reference Range Interpretation Comments BUN (test code = BUN) 13 7-22 [facility]2015-12-14 15:29:00 Test Item Value Reference Range Interpretation Comments Glucose Lvl (test code = Glucose Lvl) 89 70-99 [facility]2015-12-14 15:29:00 Test Item Value Reference Range Interpretation Comments Potassium Lvl (test code = Potassium 4.2 3.5-5.1 Lvl) [facility]2015-12-14 15:29:00 Test Item Value Reference Range Interpretation Comments Sodium Lvl (test code = Sodium Lvl) 134 135-145 [facility]2015-12-14 15:29:00 Test Item Value Reference Range Interpretation Comments AGAP (test code = AGAP) 11.2 10.0-20.0 [facility] LakewayAssfjiuGMHIJPBUBZ7819-87-48 15:29:00 Test Item Value Reference Range Interpretation Comments MPV (test code = MPV) 9.2 7.4-10.4 [facility] LakewayCytryubNEINWDGWPA7726-91-87 15:29:00 Test Item Value Reference Range Interpretation Comments Platelet (test code = Platelet) 307 133-450 [facility] LakewayJgohedzFCHVCDVCMK4778-16-24 15:29:00 Test Item Value Reference Range Interpretation Comments MCH (test code = MCH) 24.3 pg 27.0-31.0 [facility] LakewayUseltmoUKPXQNBBKE0280-77-22 15:29:00 Test Item Value Reference Range Interpretation Comments RDW (test code = RDW) 15.7 11.5-14.5 [facility] LakewayUyftncgBZQIYGKSAB6545-97-45 15:29:00 Test Item Value Reference Range Interpretation Comments MCHC (test code = MCHC) 31.2 32.0-36.0 [facility] LakewayFaapjqwZXZFZBJNGS9607-94-38 15:29:00 Test Item Value Reference Range Interpretation Comments MCV (test code = MCV) 78.0 80.0-98.0 [facility] LakewayOhjrptaGRGLNBNSVG0600-01-84 15:29:00 Test Item Value Reference Range Interpretation Comments WBC (test code = WBC) 8.6 3.7-10.4 [facility] LakewaySepdzpvPHQJVLGBSL5134-07-79 15:29:00 Test Item Value Reference Range Interpretation Comments Hgb (test code = Hgb) 13.2 12.0-16.0 [facility] LakewayItkqenrLCFJOWRHIZ5562-19-86 15:29:00 Test Item Value Reference Range Interpretation Comments RBC (test code = RBC) 5.41 4.20-5.40 [facility] LakewayPqnblpfIBLXZMIEJN8878-65-77 15:29:00 Test Item Value Reference Range Interpretation Comments Hct (test code = Hct) 42.1 36.0-48.0 [facility] LakewayFcchumpYIZWVWSNDG7031-71-91 15:29:00 Test Item Value Reference Range Interpretation Comments Lymphocytes # (test code = Lymphocytes 3.2 1.0-5.5 #) [facility] LakewayIdzzlwtHQVTUUPMBO1478-26-12 15:29:00 Test Item Value Reference Range Interpretation Comments Eosinophils # (test code 0.1 See_Comment [A utomated message] The = Eosinophils #) system whic h generated this result tra nsmitted reference range : <=0.5. The reference r kat was not used to int erpret this result as normal/abnormal . [facility] LakewayEhlzxdrHFANUNQJDE7325-84-36 15:29:00 Test Item Value Reference Range Interpretation Comments Monocytes # (test code 0.8 See_Comment [Aut omated message] The = Monocytes #) system which generated this result tra nsmitted reference range : <=0.8. The reference r kat was not used to int erpret this result as normal/abnormal . [facility] LakewayLetqbncGUGTPJOHQL2980-89-88 15:29:00 Test Item Value Reference Range Interpretation Comments Basophils (test code = 0.7 See_Comment [Aut omated message] The Basophils) system which ge nerated this result tra nsmitted reference range : <=1.0. The reference r kat was not used to int erpret this result as normal/abnormal . [facility] LakewayIhwxrayPZFCVLHLUJ6613-13-21 15:29:00 Test Item Value Reference Range Interpretation Comments Segs-Bands # (test code = Segs-Bands #) 4.4 1.5-8.1 [facility] LakewayKjmowzeIKJUPEZJYH9360-67-14 15:29:00 Test Item Value Reference Range Interpretation Comments Eosinophils (test code = 1.2 See_Comment [A utomated message] The Eosinophils) system which ge nerated this result tra nsmitted reference range : <=4.0. The reference r kat was not used to int erpret this result as normal/abnormal . [facility] LakewayUsjxithVZKOQAKCEA7367-10-43 15:29:00 Test Item Value Reference Range Interpretation Comments Lymphocytes (test code = Lymphocytes) 37.4 20.0-40.0 [facility] LakewayVayrocbRBFOKBSCPZ1864-72-67 15:29:00 Test Item Value Reference Range Interpretation Comments Monocytes (test code = Monocytes) 8.9 2.0-12.0 [facility] LakewaySnevqcaLUMJPOHWEL4584-44-55 15:29:00 Test Item Value Reference Range Interpretation Comments Segs (test code = Segs) 51.8 45.0-75.0 [facility] LakewayJlxyofmCXHZVQLRKR2768-13-83 15:29:00 Test Item Value Reference Range Interpretation Comments Microcyte (test code = 1+ *ABN*(08/12/15 Microcyte) 9:29 AM) [facility] LakewayLzjxvevPRHRVHPMWQ9005-85-84 15:29:00 Test Item Value Reference Range Interpretation Comments Basophils # (test code 0.1 See_Comment [Aut omated message] The = Basophils #) system which generated this result tra nsmitted reference range : <=0.2. The reference r kat was not used to int erpret this result as normal/abnormal . [facility]2015-12-14 15:29:00 Test Item Value Reference Range Interpretation Comments U Preg (test code = U Negative (08/12/15 9:29 Preg) AM) [facility]2015-10-26 15:15:00 Test Item Value Reference Range Interpretation Comments U Preg (test code = U Negative (06/24/15 10:15 Preg) AM) [facility]2015-10-26 15:15:00 Test Item Value Reference Range Interpretation Comments U Preg (test code = U Negative (06/24/15 10:15 Preg) AM) [facility]2015-10-26 15:15:00 Test Item Value Reference Range Interpretation Comments U Preg (test code = U Negative (06/24/15 10:15 Preg) AM) [facility]2015-10-26 15:15:00 Test Item Value Reference Range Interpretation Comments U Preg (test code = U Negative (06/24/15 10:15 Preg) AM) [facility]2015-10-26 15:15:00 Test Item Value Reference Range Interpretation Comments U Preg (test code = U Negative (06/24/15 10:15 Preg) AM) [facility]2015-10-26 15:15:00 Test Item Value Reference Range Interpretation Comments U Preg (test code = U Negative (06/24/15 10:15 Preg) AM) [facility]2015-10-26 15:15:00 Test Item Value Reference Range Interpretation Comments U Preg (test code = U Negative (06/24/15 10:15 Preg) AM) [facility]2015-10-26 15:15:00 Test Item Value Reference Range Interpretation Comments U Preg (test code = U Negative (06/24/15 10:15 Preg) AM) [facility]2015-10-09 22:58:56 Test Item Value Reference Range Interpretation Comments U Cotinine Lvl (test Negative *NA*(06/07/15 code = U Cotinine Lvl) 5:58 PM) [facility]2015-10-09 22:58:56 Test Item Value Reference Range Interpretation Comments U Preg (test code = U Negative (06/07/15 5:58 Preg) PM) [facility]2015-10-09 22:58:56 Test Item Value Reference Range Interpretation Comments U Cotinine Lvl (test Negative *NA*(06/07/15 code = U Cotinine Lvl) 5:58 PM) [facility]2015-10-09 22:58:56 Test Item Value Reference Range Interpretation Comments U Preg (test code = U Negative (06/07/15 5:58 Preg) PM) [facility]2015-10-09 22:58:56 Test Item Value Reference Range Interpretation Comments U Cotinine Lvl (test Negative *NA*(06/07/15 code = U Cotinine Lvl) 5:58 PM) [facility]2015-10-09 22:58:56 Test Item Value Reference Range Interpretation Comments U Preg (test code = U Negative (06/07/15 5:58 Preg) PM) [facility]2015-10-09 22:58:56 Test Item Value Reference Range Interpretation Comments U Cotinine Lvl (test Negative *NA*(06/07/15 code = U Cotinine Lvl) 5:58 PM) [facility]2015-10-09 22:58:56 Test Item Value Reference Range Interpretation Comments U Preg (test code = U Negative (06/07/15 5:58 Preg) PM) [facility]2015-10-09 22:58:56 Test Item Value Reference Range Interpretation Comments U Cotinine Lvl (test Negative *NA*(06/07/15 code = U Cotinine Lvl) 5:58 PM) [facility]2015-10-09 22:58:56 Test Item Value Reference Range Interpretation Comments U Preg (test code = U Negative (06/07/15 5:58 Preg) PM) [facility]2015-10-09 22:58:56 Test Item Value Reference Range Interpretation Comments U Cotinine Lvl (test Negative *NA*(06/07/15 code = U Cotinine Lvl) 5:58 PM) [facility]2015-10-09 22:58:56 Test Item Value Reference Range Interpretation Comments U Preg (test code = U Negative (06/07/15 5:58 Preg) PM) [facility]2015-10-09 22:58:56 Test Item Value Reference Range Interpretation Comments U Cotinine Lvl (test Negative *NA*(06/07/15 code = U Cotinine Lvl) 5:58 PM) [facility]2015-10-09 22:58:56 Test Item Value Reference Range Interpretation Comments U Preg (test code = U Negative (06/07/15 5:58 Preg) PM) [facility]2015-10-09 22:58:56 Test Item Value Reference Range Interpretation Comments U Cotinine Lvl (test Negative *NA*(06/07/15 code = U Cotinine Lvl) 5:58 PM) [facility]2015-10-09 22:58:56 Test Item Value Reference Range Interpretation Comments U Preg (test code = U Negative (06/07/15 5:58 Preg) PM) [facility]2015-10-09 22:53:19 Test Item Value Reference Range Interpretation Comments B/C Ratio (test code = B/C Ratio) 13 6-25 [facility] [id number] 22:53:19 Test Item Value Reference Range Interpretation Comments Globulin (test code = Globulin) 3.6 2.0-4.0 [facility] [id number] 22:53:19 Test Item Value Reference Range Interpretation Comments Magnesium Lvl (test code = Magnesium 1.8 1.8-2.4 Lvl) [facility] LakewayXbgdptcKVGVJFFFZP9143-36-20 22:53:19 Test Item Value Reference Range Interpretation Comments Segs (test code = Segs) 57.5 45.0-75.0 [facility] LakewayDdakmqeCASNZDKEAM9139-49-83 22:53:19 Test Item Value Reference Range Interpretation Comments Monocytes (test code = Monocytes) 7.6 2.0-12.0 [facility] LakewayAyskevzJEFGKHNZOH6693-47-31 22:53:19 Test Item Value Reference Range Interpretation Comments Basophils (test code = 1.0 See_Comment [Aut omated message] The Basophils) system which ge nerated this result tra nsmitted reference range : <=1.0. The reference r kat was not used to int erpret this result as normal/abnormal . [facility] LakewayAjauoosCQGQGVYBAH4618-26-22 22:53:19 Test Item Value Reference Range Interpretation Comments Lymphocytes (test code = Lymphocytes) 32.9 20.0-40.0 [facility] LakewayOwbkotjTHWQXXTGVM2985-13-47 22:53:19 Test Item Value Reference Range Interpretation Comments Eosinophils (test code = 1.0 See_Comment [A utomated message] The Eosinophils) system which ge nerated this result tra nsmitted reference range : <=4.0. The reference r kat was not used to int erpret this result as normal/abnormal . [facility] LakewayRepfrhiRABOAHNFWN9521-37-35 22:53:19 Test Item Value Reference Range Interpretation Comments Lymphocytes # (test code = Lymphocytes 3.8 1.0-5.5 #) [facility] LakewayRwodliqSZOAKTEPJN7389-91-23 22:53:19 Test Item Value Reference Range Interpretation Comments Segs-Bands # (test code = Segs-Bands #) 6.6 1.5-8.1 [facility] LakewayRoacawlOWJNRYILEL7091-83-28 22:53:19 Test Item Value Reference Range Interpretation Comments Eosinophils # (test code 0.1 See_Comment [A utomated message] The = Eosinophils #) system whic h generated this result tra nsmitted reference range : <=0.5. The reference r kat was not used to int erpret this result as normal/abnormal . [facility] LakewayQznyvdpGFUPYSPSNY5274-33-65 22:53:19 Test Item Value Reference Range Interpretation Comments Monocytes # (test code 0.9 See_Comment [Aut omated message] The = Monocytes #) system which generated this result tra nsmitted reference range : <=0.8. The reference r kat was not used to int erpret this result as normal/abnormal . [facility] LakewayImhtwjsOFMYDGIRXK1413-37-98 22:53:19 Test Item Value Reference Range Interpretation Comments Microcyte (test code = 1+ *ABN*(06/07/15 Microcyte) 5:53 PM) [facility] LakewayWoobjdcDALDECDEKO8454-28-58 22:53:19 Test Item Value Reference Range Interpretation Comments Basophils # (test code 0.1 See_Comment [Aut omated message] The = Basophils #) system which generated this result tra nsmitted reference range : <=0.2. The reference r kat was not used to int erpret this result as normal/abnormal . [facility] LakewayClfcnwoNGCDEDFVAH6883-67-65 22:53:19 Test Item Value Reference Range Interpretation Comments RBC (test code = RBC) 5.23 4.20-5.40 [facility]wayBxnmjnpPGIBXIHCTH2116-80-49 22:53:19 Test Item Value Reference Range Interpretation Comments Platelet (test code = Platelet) 241 133-450 [facility] LakewayNecinsrTZSULXOTPT3736-75-29 22:53:19 Test Item Value Reference Range Interpretation Comments MPV (test code = MPV) 9.3 7.4-10.4 [facility] LakewayZyjeqyrUQNILHSATL9485-33-77 22:53:19 Test Item Value Reference Range Interpretation Comments RDW (test code = RDW) 16.5 11.5-14.5 [facility] LakewayBnlsquzDDAJMRNCZO2628-78-64 22:53:19 Test Item Value Reference Range Interpretation Comments Hct (test code = Hct) 41.0 36.0-48.0 [facility] LakewayWevrtotJIVBAYNIJW8546-92-94 22:53:19 Test Item Value Reference Range Interpretation Comments Hgb (test code = Hgb) 12.7 12.0-16.0 [facility] LakewayVffyipyJVITUTNJTO6338-93-54 22:53:19 Test Item Value Reference Range Interpretation Comments WBC (test code = WBC) 11.5 3.7-10.4 [facility] LakewayXduamstAFVJNWTLWD3129-92-97 22:53:19 Test Item Value Reference Range Interpretation Comments MCH (test code = MCH) 24.3 pg 27.0-31.0 [facility] LakewayEwgorfwTACUKZLNDO4605-79-23 22:53:19 Test Item Value Reference Range Interpretation Comments MCHC (test code = MCHC) 31.0 32.0-36.0 [facility] LakewayNvncsbrZTPMEWFMEX4099-88-82 22:53:19 Test Item Value Reference Range Interpretation Comments MCV (test code = MCV) 78.4 80.0-98.0 [facility]2015-10-09 22:53:19 Test Item Value Reference Range Interpretation Comments FTI (test code = FTI) 2.5 [facility]2015-10-09 22:53:19 Test Item Value Reference Range Interpretation Comments TSH (test code = TSH) 1.540 0.360-3.740 [facility]2015-10-09 22:53:19 Test Item Value Reference Range Interpretation Comments T3 Uptake (test code = T3 Uptake) 31 31-39 [facility]2015-10-09 22:53:19 Test Item Value Reference Range Interpretation Comments T4 (test code = T4) 8.0 4.7-13.3 [facility]2015-10-09 22:53:19 Test Item Value Reference Range Interpretation Comments Transferrin (test code = Transferrin) 256 212-360 [facility]2015-10-09 22:53:19 Test Item Value Reference Range Interpretation Comments Vitamin B12 Lvl (test code = Vitamin [phone] B12 Lvl) [facility]2015-10-09 22:53:19 Test Item Value Reference Range Interpretation Comments eGFR (test code = eGFR) 70 [facility]2015-10-09 22:53:19 Test Item Value Reference Range Interpretation Comments Glucose Lvl (test code = Glucose Lvl) 103 70-99 [facility]2015-10-09 22:53:19 Test Item Value Reference Range Interpretation Comments Albumin Lvl (test code = Albumin Lvl) 3.6 3.5-5.0 [facility]2015-10-09 22:53:19 Test Item Value Reference Range Interpretation Comments CO2 (test code = CO2) 24 24-32 [facility]2015-10-09 22:53:19 Test Item Value Reference Range Interpretation Comments Total Protein (test code = Total 7.2 6.4-8.4 Protein) [facility]2015-10-09 22:53:19 Test Item Value Reference Range Interpretation Comments Creatinine Lvl (test code = Creatinine 1.1 0.5-1.4 Lvl) [facility]2015-10-09 22:53:19 Test Item Value Reference Range Interpretation Comments BUN (test code = BUN) 14 7-22 [facility]2015-10-09 22:53:19 Test Item Value Reference Range Interpretation Comments AST (test code = AST) 12 See_Comment [Auto mated message] The system which ge nerated this result transmit arvind reference range : <=37. The reference range was not used to interpr et this result as mario l/abnormal. [facility]2015-10-09 22:53:19 Test Item Value Reference Range Interpretation Comments ALT (test code = ALT) 41 See_Comment [Auto mated message] The system which ge nerated this result transmit arvind reference range : <=65. The reference range was not used to interpr et this result as mario l/abnormal. [facility]2015-10-09 22:53:19 Test Item Value Reference Range Interpretation Comments Alk Phos (test code = Alk Phos) 100 39-136 [facility]2015-10-09 22:53:19 Test Item Value Reference Range Interpretation Comments Bili Total (test code = Bili Total) 0.2 0.2-1.3 [facility]2015-10-09 22:53:19 Test Item Value Reference Range Interpretation Comments Potassium Lvl (test code = Potassium 3.9 3.5-5.1 Lvl) [facility]2015-10-09 22:53:19 Test Item Value Reference Range Interpretation Comments Sodium Lvl (test code = Sodium Lvl) 141 135-145 [facility]2015-10-09 22:53:19 Test Item Value Reference Range Interpretation Comments Calcium Lvl (test code = Calcium Lvl) 9.0 8.5-10.5 [facility]2015-10-09 22:53:19 Test Item Value Reference Range Interpretation Comments Chloride Lvl (test code = Chloride Lvl) 109 95-109 [facility]2015-10-09 22:53:19 Test Item Value Reference Range Interpretation Comments AGAP (test code = AGAP) 11.9 10.0-20.0 [facility]2015-10-09 22:53:19 Test Item Value Reference Range Interpretation Comments A/G Ratio (test code = A/G Ratio) 1.0 0.7-1.6 [facility]2015-10-09 22:53:19 Test Item Value Reference Range Interpretation Comments B/C Ratio (test code = B/C Ratio) 13 6-25 [facility]2015-10-09 22:53:19 Test Item Value Reference Range Interpretation Comments Globulin (test code = Globulin) 3.6 2.0-4.0 [facility]2015-10-09 22:53:19 Test Item Value Reference Range Interpretation Comments Magnesium Lvl (test code = Magnesium 1.8 1.8-2.4 Lvl) [facility] LakewayIeiohemQWOYVZLYTW9845-84-12 22:53:19 Test Item Value Reference Range Interpretation Comments Segs (test code = Segs) 57.5 45.0-75.0 [facility] LakewaySfqbqllKSMCNOVIXE1939-05-76 22:53:19 Test Item Value Reference Range Interpretation Comments Monocytes (test code = Monocytes) 7.6 2.0-12.0 [facility] LakewayLjywtbxBFYPSORVIG6256-67-46 22:53:19 Test Item Value Reference Range Interpretation Comments Basophils (test code = 1.0 See_Comment [Aut omated message] The Basophils) system which ge nerated this result tra nsmitted reference range : <=1.0. The reference r kat was not used to int erpret this result as normal/abnormal . [facility]wayXhjtpqzLUKPMEJOCF6594-51-28 22:53:19 Test Item Value Reference Range Interpretation Comments Lymphocytes (test code = Lymphocytes) 32.9 20.0-40.0 [facility] LakewaySjpebfnILSSBQLARC1654-62-97 22:53:19 Test Item Value Reference Range Interpretation Comments Eosinophils (test code = 1.0 See_Comment [A utomated message] The Eosinophils) system which ge nerated this result tra nsmitted reference range : <=4.0. The reference r kat was not used to int erpret this result as normal/abnormal . [facility] LakewayYbtpuvwILJZFQUIVG2809-77-70 22:53:19 Test Item Value Reference Range Interpretation Comments Lymphocytes # (test code = Lymphocytes 3.8 1.0-5.5 #) [facility] LakewayCzxhydyEUTBNQJTUC8842-25-25 22:53:19 Test Item Value Reference Range Interpretation Comments Segs-Bands # (test code = Segs-Bands #) 6.6 1.5-8.1 [facility] LakewayTksprsrFPPRXJZDOA8335-46-66 22:53:19 Test Item Value Reference Range Interpretation Comments Eosinophils # (test code 0.1 See_Comment [A utomated message] The = Eosinophils #) system whic h generated this result tra nsmitted reference range : <=0.5. The reference r kat was not used to int erpret this result as normal/abnormal . [facility] LakewayTvrmhrpZNRIRXVXBU0431-12-32 22:53:19 Test Item Value Reference Range Interpretation Comments Monocytes # (test code 0.9 See_Comment [Aut omated message] The = Monocytes #) system which generated this result tra nsmitted reference range : <=0.8. The reference r kat was not used to int erpret this result as normal/abnormal . [facility] LakewaySyejxyqFQIVTZRBLH8774-14-22 22:53:19 Test Item Value Reference Range Interpretation Comments Microcyte (test code = 1+ *ABN*(06/07/15 Microcyte) 5:53 PM) [facility] LakewayQjeyefoKJASBLOCHM5659-10-23 22:53:19 Test Item Value Reference Range Interpretation Comments Basophils # (test code 0.1 See_Comment [Aut omated message] The = Basophils #) system which generated this result tra nsmitted reference range : <=0.2. The reference r kat was not used to int erpret this result as normal/abnormal . [facility] LakewayZugccqkBTHNCPIQRZ4063-32-12 22:53:19 Test Item Value Reference Range Interpretation Comments RBC (test code = RBC) 5.23 4.20-5.40 [facility]wayXgtejutJPRVCYTNCB3449-66-92 22:53:19 Test Item Value Reference Range Interpretation Comments Platelet (test code = Platelet) 241 534-450 [facility] LakewayBwmopinSHEAHRQOYV5116-28-04 22:53:19 Test Item Value Reference Range Interpretation Comments MPV (test code = MPV) 9.3 7.4-10.4 [facility] LakewayRiuuakjMSFBMEZIMK7287-50-04 22:53:19 Test Item Value Reference Range Interpretation Comments RDW (test code = RDW) 16.5 11.5-14.5 [facility]wayXncqgfrADFRHEMXTL7144-48-96 22:53:19 Test Item Value Reference Range Interpretation Comments Hct (test code = Hct) 41.0 36.0-48.0 [facility] LakewayNjljktzFDLVSGQGDW5824-24-23 22:53:19 Test Item Value Reference Range Interpretation Comments Hgb (test code = Hgb) 12.7 12.0-16.0 [facility] LakewayVxvritePCLGHMAYXP0710-79-95 22:53:19 Test Item Value Reference Range Interpretation Comments WBC (test code = WBC) 11.5 3.7-10.4 [facility] LakewayComjfojEGVVVNWBNG8191-25-95 22:53:19 Test Item Value Reference Range Interpretation Comments MCH (test code = MCH) 24.3 pg 27.0-31.0 [facility] LakewayNvddotvBMWINCQKXI8269-02-05 22:53:19 Test Item Value Reference Range Interpretation Comments MCHC (test code = MCHC) 31.0 32.0-36.0 [facility] LakewayBxeijlqVBNODPVNTU2701-33-65 22:53:19 Test Item Value Reference Range Interpretation Comments MCV (test code = MCV) 78.4 80.0-98.0 [facility] [id number] 22:53:19 Test Item Value Reference Range Interpretation Comments FTI (test code = FTI) 2.5 [facility]TH[facility] [id number] 22:53:19 Test Item Value Reference Range Interpretation Comments TSH (test code = TSH) 1.540 0.360-3.740 [facility]TH[facility] [id number] 22:53:19 Test Item Value Reference Range Interpretation Comments T3 Uptake (test code = T3 Uptake) 31 31-39 [facility] [id number] 22:53:19 Test Item Value Reference Range Interpretation Comments T4 (test code = T4) 8.0 4.7-13.3 [facility]2015-10-09 22:53:19 Test Item Value Reference Range Interpretation Comments Transferrin (test code = Transferrin) 256 212-360 [facility]2015-10-09 22:53:19 Test Item Value Reference Range Interpretation Comments Vitamin B12 Lvl (test code = Vitamin [phone] B12 Lvl) [facility]2015-10-09 22:53:19 Test Item Value Reference Range Interpretation Comments eGFR (test code = eGFR) 70 [facility]2015-10-09 22:53:19 Test Item Value Reference Range Interpretation Comments Glucose Lvl (test code = Glucose Lvl) 103 70-99 [facility]2015-10-09 22:53:19 Test Item Value Reference Range Interpretation Comments Albumin Lvl (test code = Albumin Lvl) 3.6 3.5-5.0 [facility]2015-10-09 22:53:19 Test Item Value Reference Range Interpretation Comments CO2 (test code = CO2) 24 24-32 [facility]2015-10-09 22:53:19 Test Item Value Reference Range Interpretation Comments Total Protein (test code = Total 7.2 6.4-8.4 Protein) [facility]2015-10-09 22:53:19 Test Item Value Reference Range Interpretation Comments Creatinine Lvl (test code = Creatinine 1.1 0.5-1.4 Lvl) [facility]2015-10-09 22:53:19 Test Item Value Reference Range Interpretation Comments BUN (test code = BUN) 14 7-22 [facility]2015-10-09 22:53:19 Test Item Value Reference Range Interpretation Comments AST (test code = AST) 12 See_Comment [Auto mated message] The system which ge nerated this result transmit arvind reference range : <=37. The reference range was not used to interpr et this result as mario l/abnormal. [facility]2015-10-09 22:53:19 Test Item Value Reference Range Interpretation Comments ALT (test code = ALT) 41 See_Comment [Auto mated message] The system which ge nerated this result transmit arvind reference range : <=65. The reference range was not used to interpr et this result as mario l/abnormal. [facility]2015-10-09 22:53:19 Test Item Value Reference Range Interpretation Comments Alk Phos (test code = Alk Phos) 100 39-136 [facility]2015-10-09 22:53:19 Test Item Value Reference Range Interpretation Comments Bili Total (test code = Bili Total) 0.2 0.2-1.3 [facility]2015-10-09 22:53:19 Test Item Value Reference Range Interpretation Comments Potassium Lvl (test code = Potassium 3.9 3.5-5.1 Lvl) [facility]2015-10-09 22:53:19 Test Item Value Reference Range Interpretation Comments Sodium Lvl (test code = Sodium Lvl) 141 135-145 [facility]2015-10-09 22:53:19 Test Item Value Reference Range Interpretation Comments Calcium Lvl (test code = Calcium Lvl) 9.0 8.5-10.5 [facility]2015-10-09 22:53:19 Test Item Value Reference Range Interpretation Comments Chloride Lvl (test code = Chloride Lvl) 109 95-109 [facility]2015-10-09 22:53:19 Test Item Value Reference Range Interpretation Comments AGAP (test code = AGAP) 11.9 10.0-20.0 [facility]2015-10-09 22:53:19 Test Item Value Reference Range Interpretation Comments A/G Ratio (test code = A/G Ratio) 1.0 0.7-1.6 [facility]2015-10-09 22:53:19 Test Item Value Reference Range Interpretation Comments B/C Ratio (test code = B/C Ratio) 13 6-25 [facility]2015-10-09 22:53:19 Test Item Value Reference Range Interpretation Comments Globulin (test code = Globulin) 3.6 2.0-4.0 [facility]2015-10-09 22:53:19 Test Item Value Reference Range Interpretation Comments Magnesium Lvl (test code = Magnesium 1.8 1.8-2.4 Lvl) [facility] LakewayZeewadtEKVSVEJRNT6494-13-18 22:53:19 Test Item Value Reference Range Interpretation Comments Segs (test code = Segs) 57.5 45.0-75.0 [facility] LakewayMeagixkWYTBWCEYNU9370-54-07 22:53:19 Test Item Value Reference Range Interpretation Comments Monocytes (test code = Monocytes) 7.6 2.0-12.0 [facility] LakewayGknrrupTMTUBAKQQA0031-11-03 22:53:19 Test Item Value Reference Range Interpretation Comments Basophils (test code = 1.0 See_Comment [Aut omated message] The Basophils) system which ge nerated this result tra nsmitted reference range : <=1.0. The reference r kat was not used to int erpret this result as normal/abnormal . [facility] LakewayBgdfeanNNKYAIFLEP4868-61-69 22:53:19 Test Item Value Reference Range Interpretation Comments Lymphocytes (test code = Lymphocytes) 32.9 20.0-40.0 [facility] LakewayXaslbqjNUVEXWMNSL5159-74-11 22:53:19 Test Item Value Reference Range Interpretation Comments Eosinophils (test code = 1.0 See_Comment [A utomated message] The Eosinophils) system which ge nerated this result tra nsmitted reference range : <=4.0. The reference r kat was not used to int erpret this result as normal/abnormal . [facility] LakewayNysopoqAVFWASXSCH5536-63-93 22:53:19 Test Item Value Reference Range Interpretation Comments Lymphocytes # (test code = Lymphocytes 3.8 1.0-5.5 #) [facility] LakewayIarchfuVGBUGUADOD0093-45-57 22:53:19 Test Item Value Reference Range Interpretation Comments Segs-Bands # (test code = Segs-Bands #) 6.6 1.5-8.1 [facility] LakewayBkypdbcNIDARRYOWR4244-00-46 22:53:19 Test Item Value Reference Range Interpretation Comments Eosinophils # (test code 0.1 See_Comment [A utomated message] The = Eosinophils #) system ic h generated this result tra nsmitted reference range : <=0.5. The reference r kat was not used to int erpret this result as normal/abnormal . [facility] LakewayIpfbicqWRTMKBYNZD1783-85-95 22:53:19 Test Item Value Reference Range Interpretation Comments Monocytes # (test code 0.9 See_Comment [Aut omated message] The = Monocytes #) system which generated this result tra nsmitted reference range : <=0.8. The reference r kat was not used to int erpret this result as normal/abnormal . [facility] LakewayJncpgiiNVKITSMHUV5508-13-29 22:53:19 Test Item Value Reference Range Interpretation Comments Microcyte (test code = 1+ *ABN*(06/07/15 Microcyte) 5:53 PM) [facility] LakewayAosgbdmIPWRFAJPAV5108-64-20 22:53:19 Test Item Value Reference Range Interpretation Comments Basophils # (test code 0.1 See_Comment [Aut omated message] The = Basophils #) system which generated this result tra nsmitted reference range : <=0.2. The reference r kat was not used to int erpret this result as normal/abnormal . [facility] LakewayHofxklnRZSIGMYNLU8858-80-11 22:53:19 Test Item Value Reference Range Interpretation Comments RBC (test code = RBC) 5.23 4.20-5.40 [facility] LakewayXdshxkgIGPKWNFBYS4675-16-64 22:53:19 Test Item Value Reference Range Interpretation Comments Platelet (test code = Platelet) 241 133-450 [facility] LakewayGpuwzfzYOECOMYBMR8958-50-93 22:53:19 Test Item Value Reference Range Interpretation Comments MPV (test code = MPV) 9.3 7.4-10.4 [facility] LakewayRpcrkkpYDOIOHUGKB6282-87-40 22:53:19 Test Item Value Reference Range Interpretation Comments RDW (test code = RDW) 16.5 11.5-14.5 [facility] LakewayNmrkxpiDWPBJFRBFI9717-63-04 22:53:19 Test Item Value Reference Range Interpretation Comments Hct (test code = Hct) 41.0 36.0-48.0 [facility] LakewayUqtctogOCNQPFBMRY0352-31-42 22:53:19 Test Item Value Reference Range Interpretation Comments Hgb (test code = Hgb) 12.7 12.0-16.0 [facility] LakewayLkznrlqQDMBNRSBLM4791-33-46 22:53:19 Test Item Value Reference Range Interpretation Comments WBC (test code = WBC) 11.5 3.7-10.4 [facility] LakewayIjhirvjYRFIAQNVWW3019-29-00 22:53:19 Test Item Value Reference Range Interpretation Comments MCH (test code = MCH) 24.3 pg 27.0-31.0 [facility] LakewayMligftnHUAMASVMBV5700-41-62 22:53:19 Test Item Value Reference Range Interpretation Comments MCHC (test code = MCHC) 31.0 32.0-36.0 [facility] LakewayJvjmfecQERPDIGKVJ7936-94-88 22:53:19 Test Item Value Reference Range Interpretation Comments MCV (test code = MCV) 78.4 80.0-98.0 [facility]2015-10-09 22:53:19 Test Item Value Reference Range Interpretation Comments FTI (test code = FTI) 2.5 [facility]2015-10-09 22:53:19 Test Item Value Reference Range Interpretation Comments TSH (test code = TSH) 1.540 0.360-3.740 [facility]2015-10-09 22:53:19 Test Item Value Reference Range Interpretation Comments T3 Uptake (test code = T3 Uptake) 31 31-39 [facility]2015-10-09 22:53:19 Test Item Value Reference Range Interpretation Comments T4 (test code = T4) 8.0 4.7-13.3 [facility]2015-10-09 22:53:19 Test Item Value Reference Range Interpretation Comments Transferrin (test code = Transferrin) 256 212-360 [facility]2015-10-09 22:53:19 Test Item Value Reference Range Interpretation Comments Vitamin B12 Lvl (test code = Vitamin [phone] B12 Lvl) [facility]2015-10-09 22:53:19 Test Item Value Reference Range Interpretation Comments eGFR (test code = eGFR) 70 [facility]2015-10-09 22:53:19 Test Item Value Reference Range Interpretation Comments Glucose Lvl (test code = Glucose Lvl) 103 70-99 [facility]2015-10-09 22:53:19 Test Item Value Reference Range Interpretation Comments Albumin Lvl (test code = Albumin Lvl) 3.6 3.5-5.0 [facility]2015-10-09 22:53:19 Test Item Value Reference Range Interpretation Comments CO2 (test code = CO2) 24 24-32 [facility]2015-10-09 22:53:19 Test Item Value Reference Range Interpretation Comments Total Protein (test code = Total 7.2 6.4-8.4 Protein) [facility]2015-10-09 22:53:19 Test Item Value Reference Range Interpretation Comments Creatinine Lvl (test code = Creatinine 1.1 0.5-1.4 Lvl) [facility]2015-10-09 22:53:19 Test Item Value Reference Range Interpretation Comments BUN (test code = BUN) 14 7-22 [facility]2015-10-09 22:53:19 Test Item Value Reference Range Interpretation Comments AST (test code = AST) 12 See_Comment [Auto mated message] The system which ge nerated this result transmit arvind reference range : <=37. The reference range was not used to interpr et this result as mario l/abnormal. [facility]2015-10-09 22:53:19 Test Item Value Reference Range Interpretation Comments ALT (test code = ALT) 41 See_Comment [Auto mated message] The system which ge nerated this result transmit arvind reference range : <=65. The reference range was not used to interpr et this result as mario l/abnormal. [facility]2015-10-09 22:53:19 Test Item Value Reference Range Interpretation Comments Alk Phos (test code = Alk Phos) 100 39-136 [facility]2015-10-09 22:53:19 Test Item Value Reference Range Interpretation Comments Bili Total (test code = Bili Total) 0.2 0.2-1.3 [facility]2015-10-09 22:53:19 Test Item Value Reference Range Interpretation Comments Potassium Lvl (test code = Potassium 3.9 3.5-5.1 Lvl) [facility]2015-10-09 22:53:19 Test Item Value Reference Range Interpretation Comments Sodium Lvl (test code = Sodium Lvl) 141 135-145 [facility]2015-10-09 22:53:19 Test Item Value Reference Range Interpretation Comments Calcium Lvl (test code = Calcium Lvl) 9.0 8.5-10.5 [facility]2015-10-09 22:53:19 Test Item Value Reference Range Interpretation Comments Chloride Lvl (test code = Chloride Lvl) 109 95-109 [facility]2015-10-09 22:53:19 Test Item Value Reference Range Interpretation Comments AGAP (test code = AGAP) 11.9 10.0-20.0 [facility]2015-10-09 22:53:19 Test Item Value Reference Range Interpretation Comments A/G Ratio (test code = A/G Ratio) 1.0 0.7-1.6 [facility]2015-10-09 22:53:19 Test Item Value Reference Range Interpretation Comments B/C Ratio (test code = B/C Ratio) 13 6-25 [facility]2015-10-09 22:53:19 Test Item Value Reference Range Interpretation Comments Globulin (test code = Globulin) 3.6 2.0-4.0 [facility]2015-10-09 22:53:19 Test Item Value Reference Range Interpretation Comments Magnesium Lvl (test code = Magnesium 1.8 1.8-2.4 Lvl) [facility]wayGnyjxosBFJUGDMPLH7458-04-51 22:53:19 Test Item Value Reference Range Interpretation Comments Segs (test code = Segs) 57.5 45.0-75.0 [facility] LakewayKbdyazuASIOSOMODP4302-60-00 22:53:19 Test Item Value Reference Range Interpretation Comments Monocytes (test code = Monocytes) 7.6 2.0-12.0 [facility] LakewayFtzfkufIYMXYGVMDN9899-51-47 22:53:19 Test Item Value Reference Range Interpretation Comments Basophils (test code = 1.0 See_Comment [Aut omated message] The Basophils) system which ge nerated this result tra nsmitted reference range : <=1.0. The reference r kat was not used to int erpret this result as normal/abnormal . [facility] LakewayFuboieaOFRCYNEHJM5186-02-61 22:53:19 Test Item Value Reference Range Interpretation Comments Lymphocytes (test code = Lymphocytes) 32.9 20.0-40.0 [facility] LakewayLkezpklRMEXCOCYNX7250-62-21 22:53:19 Test Item Value Reference Range Interpretation Comments Eosinophils (test code = 1.0 See_Comment [A utomated message] The Eosinophils) system which ge nerated this result tra nsmitted reference range : <=4.0. The reference r kat was not used to int erpret this result as normal/abnormal . [facility] LakewayRhnmxicXAJYZOUQNF7099-72-12 22:53:19 Test Item Value Reference Range Interpretation Comments Lymphocytes # (test code = Lymphocytes 3.8 1.0-5.5 #) [facility] LakewayIiayrgwXYRIIYOHHH2739-31-43 22:53:19 Test Item Value Reference Range Interpretation Comments Segs-Bands # (test code = Segs-Bands #) 6.6 1.5-8.1 [facility] LakewayTvnmjyzDKFLOZCGUK3382-44-06 22:53:19 Test Item Value Reference Range Interpretation Comments Eosinophils # (test code 0.1 See_Comment [A utomated message] The = Eosinophils #) system whic h generated this result tra nsmitted reference range : <=0.5. The reference r kat was not used to int erpret this result as normal/abnormal . [facility] LakewayQwtqlrsKEMRPFJXRJ2144-68-09 22:53:19 Test Item Value Reference Range Interpretation Comments Monocytes # (test code 0.9 See_Comment [Aut omated message] The = Monocytes #) system which generated this result tra nsmitted reference range : <=0.8. The reference r kat was not used to int erpret this result as normal/abnormal . [facility] LakewayManfuxbVECQOFWUNH7101-08-06 22:53:19 Test Item Value Reference Range Interpretation Comments Microcyte (test code = 1+ *ABN*(06/07/15 Microcyte) 5:53 PM) [facility] LakewayYtiprikIUZDPOOLAY7560-91-69 22:53:19 Test Item Value Reference Range Interpretation Comments Basophils # (test code 0.1 See_Comment [Aut omated message] The = Basophils #) system which generated this result tra nsmitted reference range : <=0.2. The reference r kat was not used to int erpret this result as normal/abnormal . [facility] LakewayQimsijnMAMMAEMQNG1675-69-41 22:53:19 Test Item Value Reference Range Interpretation Comments RBC (test code = RBC) 5.23 4.20-5.40 [facility] LakewayRjohkhiGGIRXGSIPL6413-99-94 22:53:19 Test Item Value Reference Range Interpretation Comments Platelet (test code = Platelet) 241 133-450 [facility] LakewayMkxsfctOPWQFVLSNR9498-07-90 22:53:19 Test Item Value Reference Range Interpretation Comments MPV (test code = MPV) 9.3 7.4-10.4 [facility] LakewayIusykwiXDXMGRNRLP9029-28-60 22:53:19 Test Item Value Reference Range Interpretation Comments RDW (test code = RDW) 16.5 11.5-14.5 [facility] LakewayIgsowcwKWBMJWPUMF7082-65-56 22:53:19 Test Item Value Reference Range Interpretation Comments Hct (test code = Hct) 41.0 36.0-48.0 [facility] LakewayGrslpyeLBXRZCULEQ5776-59-25 22:53:19 Test Item Value Reference Range Interpretation Comments Hgb (test code = Hgb) 12.7 12.0-16.0 [facility] LakewayJctiuttFLFTKIHTEM5818-00-20 22:53:19 Test Item Value Reference Range Interpretation Comments WBC (test code = WBC) 11.5 3.7-10.4 [facility] LakewayXaretdoQXTQDSJKIS4642-48-94 22:53:19 Test Item Value Reference Range Interpretation Comments MCH (test code = MCH) 24.3 pg 27.0-31.0 [facility] LakewayIlafiokDSJRDDQSBM6139-18-33 22:53:19 Test Item Value Reference Range Interpretation Comments MCHC (test code = MCHC) 31.0 32.0-36.0 [facility] LakewayAlbgiclYKJSEOEIUL7544-22-10 22:53:19 Test Item Value Reference Range Interpretation Comments MCV (test code = MCV) 78.4 80.0-98.0 [facility]2015-10-09 22:53:19 Test Item Value Reference Range Interpretation Comments FTI (test code = FTI) 2.5 [facility]2015-10-09 22:53:19 Test Item Value Reference Range Interpretation Comments TSH (test code = TSH) 1.540 0.360-3.740 [facility]2015-10-09 22:53:19 Test Item Value Reference Range Interpretation Comments T3 Uptake (test code = T3 Uptake) 31 31-39 [facility]2015-10-09 22:53:19 Test Item Value Reference Range Interpretation Comments T4 (test code = T4) 8.0 4.7-13.3 [facility]2015-10-09 22:53:19 Test Item Value Reference Range Interpretation Comments Transferrin (test code = Transferrin) 256 212-360 [facility]2015-10-09 22:53:19 Test Item Value Reference Range Interpretation Comments Vitamin B12 Lvl (test code = Vitamin [phone] B12 Lvl) [facility]2015-10-09 22:53:19 Test Item Value Reference Range Interpretation Comments eGFR (test code = eGFR) 70 [facility]2015-10-09 22:53:19 Test Item Value Reference Range Interpretation Comments Glucose Lvl (test code = Glucose Lvl) 103 70-99 [facility]2015-10-09 22:53:19 Test Item Value Reference Range Interpretation Comments Albumin Lvl (test code = Albumin Lvl) 3.6 3.5-5.0 [facility]2015-10-09 22:53:19 Test Item Value Reference Range Interpretation Comments CO2 (test code = CO2) 24 24-32 [facility]2015-10-09 22:53:19 Test Item Value Reference Range Interpretation Comments Total Protein (test code = Total 7.2 6.4-8.4 Protein) [facility]2015-10-09 22:53:19 Test Item Value Reference Range Interpretation Comments Creatinine Lvl (test code = Creatinine 1.1 0.5-1.4 Lvl) [facility]2015-10-09 22:53:19 Test Item Value Reference Range Interpretation Comments BUN (test code = BUN) 14 7-22 [facility]2015-10-09 22:53:19 Test Item Value Reference Range Interpretation Comments AST (test code = AST) 12 See_Comment [Auto mated message] The system which ge nerated this result transmit arvind reference range : <=37. The reference range was not used to interpr et this result as mario l/abnormal. [facility]2015-10-09 22:53:19 Test Item Value Reference Range Interpretation Comments ALT (test code = ALT) 41 See_Comment [Auto mated message] The system which ge nerated this result transmit arvind reference range : <=65. The reference range was not used to interpr et this result as mario l/abnormal. [facility]2015-10-09 22:53:19 Test Item Value Reference Range Interpretation Comments Alk Phos (test code = Alk Phos) 100 39-136 [facility]2015-10-09 22:53:19 Test Item Value Reference Range Interpretation Comments Bili Total (test code = Bili Total) 0.2 0.2-1.3 [facility]2015-10-09 22:53:19 Test Item Value Reference Range Interpretation Comments Potassium Lvl (test code = Potassium 3.9 3.5-5.1 Lvl) [facility]2015-10-09 22:53:19 Test Item Value Reference Range Interpretation Comments Sodium Lvl (test code = Sodium Lvl) 141 135-145 [facility]2015-10-09 22:53:19 Test Item Value Reference Range Interpretation Comments Calcium Lvl (test code = Calcium Lvl) 9.0 8.5-10.5 [facility]2015-10-09 22:53:19 Test Item Value Reference Range Interpretation Comments Chloride Lvl (test code = Chloride Lvl) 109 95-109 [facility]2015-10-09 22:53:19 Test Item Value Reference Range Interpretation Comments AGAP (test code = AGAP) 11.9 10.0-20.0 [facility]2015-10-09 22:53:19 Test Item Value Reference Range Interpretation Comments A/G Ratio (test code = A/G Ratio) 1.0 0.7-1.6 [facility]2015-10-09 22:53:19 Test Item Value Reference Range Interpretation Comments B/C Ratio (test code = B/C Ratio) 13 6-25 [facility]2015-10-09 22:53:19 Test Item Value Reference Range Interpretation Comments Globulin (test code = Globulin) 3.6 2.0-4.0 [facility]2015-10-09 22:53:19 Test Item Value Reference Range Interpretation Comments Magnesium Lvl (test code = Magnesium 1.8 1.8-2.4 Lvl) [facility] LakewayScrfmwaWTCJMIXEQF6490-03-92 22:53:19 Test Item Value Reference Range Interpretation Comments Segs (test code = Segs) 57.5 45.0-75.0 [facility] LakewayAljuinjYXQNJXGMCX1115-76-58 22:53:19 Test Item Value Reference Range Interpretation Comments Monocytes (test code = Monocytes) 7.6 2.0-12.0 [facility] LakewayDsdywfbDBMTWFUVCL7942-65-52 22:53:19 Test Item Value Reference Range Interpretation Comments Basophils (test code = 1.0 See_Comment [Aut omated message] The Basophils) system which ge nerated this result tra nsmitted reference range : <=1.0. The reference r kat was not used to int erpret this result as normal/abnormal . [facility] LakewayUadndcoHZJYGLBSPI8327-77-05 22:53:19 Test Item Value Reference Range Interpretation Comments Lymphocytes (test code = Lymphocytes) 32.9 20.0-40.0 [facility] LakewayMpmdhljGYQGTMLIEP6081-40-29 22:53:19 Test Item Value Reference Range Interpretation Comments Eosinophils (test code = 1.0 See_Comment [A utomated message] The Eosinophils) system which ge nerated this result tra nsmitted reference range : <=4.0. The reference r kat was not used to int erpret this result as normal/abnormal . [facility] LakewayAshixusRVDQYJVBVQ8222-11-32 22:53:19 Test Item Value Reference Range Interpretation Comments Lymphocytes # (test code = Lymphocytes 3.8 1.0-5.5 #) [facility] LakewayGnkvyqpLVQEXATIAF0275-01-00 22:53:19 Test Item Value Reference Range Interpretation Comments Segs-Bands # (test code = Segs-Bands #) 6.6 1.5-8.1 [facility] LakewayNxjvqrcXFXUAQXTDW6786-11-46 22:53:19 Test Item Value Reference Range Interpretation Comments Eosinophils # (test code 0.1 See_Comment [A utomated message] The = Eosinophils #) system wh h generated this result tra nsmitted reference range : <=0.5. The reference r kat was not used to int erpret this result as normal/abnormal . [facility] LakewayRqyjsxhULOMFKFYWD0460-29-77 22:53:19 Test Item Value Reference Range Interpretation Comments Monocytes # (test code 0.9 See_Comment [Aut omated message] The = Monocytes #) system which generated this result tra nsmitted reference range : <=0.8. The reference r kat was not used to int erpret this result as normal/abnormal . [facility] LakewayDfoxgplFXEWEAQSGQ3104-45-73 22:53:19 Test Item Value Reference Range Interpretation Comments Microcyte (test code = 1+ *ABN*(06/07/15 Microcyte) 5:53 PM) [facility] LakewayMavnhyeXLQXQOPHXV6896-09-82 22:53:19 Test Item Value Reference Range Interpretation Comments Basophils # (test code 0.1 See_Comment [Aut omated message] The = Basophils #) system which generated this result tra nsmitted reference range : <=0.2. The reference r kat was not used to int erpret this result as normal/abnormal . [facility] LakewayTvyvjoiXWDRBMMPSB0268-14-86 22:53:19 Test Item Value Reference Range Interpretation Comments RBC (test code = RBC) 5.23 4.20-5.40 [facility] LakewayXxjmhzcZXKHMMUZKL9158-36-33 22:53:19 Test Item Value Reference Range Interpretation Comments Platelet (test code = Platelet) 241 133-450 [facility] LakewayRfvwudmSVLHLRJVFZ7741-00-97 22:53:19 Test Item Value Reference Range Interpretation Comments MPV (test code = MPV) 9.3 7.4-10.4 [facility] LakewayTfjvblbVLMGHXEZSC7959-06-63 22:53:19 Test Item Value Reference Range Interpretation Comments RDW (test code = RDW) 16.5 11.5-14.5 [facility] LakewayCevnuzwXXQAXEPRMX1644-05-66 22:53:19 Test Item Value Reference Range Interpretation Comments Hct (test code = Hct) 41.0 36.0-48.0 [facility] LakewayKndfileTPHOYZSEIK0780-71-05 22:53:19 Test Item Value Reference Range Interpretation Comments Hgb (test code = Hgb) 12.7 12.0-16.0 [facility] LakewayGztpkzsJQQLESCZKS4693-92-59 22:53:19 Test Item Value Reference Range Interpretation Comments WBC (test code = WBC) 11.5 3.7-10.4 [facility] LakewayWbbfsixWVCTYJKPBN0779-74-75 22:53:19 Test Item Value Reference Range Interpretation Comments MCH (test code = MCH) 24.3 pg 27.0-31.0 [facility] LakewayAnosspnWFHRXDOCJD2079-62-73 22:53:19 Test Item Value Reference Range Interpretation Comments MCHC (test code = MCHC) 31.0 32.0-36.0 [facility] LakewayLocspcuPVTGJODGBG8746-97-63 22:53:19 Test Item Value Reference Range Interpretation Comments MCV (test code = MCV) 78.4 80.0-98.0 [facility] BKULN6654-11-76 22:53:19 Test Item Value Reference Range Interpretation Comments FTI (test code = FTI) 2.5 [facility] CenterTH[facility] VOGUD7217-03-59 22:53:19 Test Item Value Reference Range Interpretation Comments TSH (test code = TSH) 1.540 0.360-3.740 [facility] CenterTHY[facility] KLXRA2661-80-01 22:53:19 Test Item Value Reference Range Interpretation Comments T3 Uptake (test code = T3 Uptake) 31 31-39 [facility] CenterTHY[facility] [id number] 22:53:19 Test Item Value Reference Range Interpretation Comments T4 (test code = T4) 8.0 4.7-13.3 [facility]2015-10-09 22:53:19 Test Item Value Reference Range Interpretation Comments Transferrin (test code = Transferrin) 256 212-360 [facility]2015-10-09 22:53:19 Test Item Value Reference Range Interpretation Comments Vitamin B12 Lvl (test code = Vitamin 457 158-1989 B12 Lvl) [facility]2015-10-09 22:53:19 Test Item Value Reference Range Interpretation Comments eGFR (test code = eGFR) 70 [facility]2015-10-09 22:53:19 Test Item Value Reference Range Interpretation Comments Glucose Lvl (test code = Glucose Lvl) 103 70-99 [facility]2015-10-09 22:53:19 Test Item Value Reference Range Interpretation Comments Albumin Lvl (test code = Albumin Lvl) 3.6 3.5-5.0 [facility]2015-10-09 22:53:19 Test Item Value Reference Range Interpretation Comments CO2 (test code = CO2) 24 24-32 [facility]2015-10-09 22:53:19 Test Item Value Reference Range Interpretation Comments Total Protein (test code = Total 7.2 6.4-8.4 Protein) [facility]2015-10-09 22:53:19 Test Item Value Reference Range Interpretation Comments Creatinine Lvl (test code = Creatinine 1.1 0.5-1.4 Lvl) [facility]2015-10-09 22:53:19 Test Item Value Reference Range Interpretation Comments BUN (test code = BUN) 14 7-22 [facility]2015-10-09 22:53:19 Test Item Value Reference Range Interpretation Comments AST (test code = AST) 12 See_Comment [Auto mated message] The system which ge nerated this result transmit arvind reference range : <=37. The reference range was not used to interpr et this result as mario l/abnormal. [facility]2015-10-09 22:53:19 Test Item Value Reference Range Interpretation Comments ALT (test code = ALT) 41 See_Comment [Auto mated message] The system which ge nerated this result transmit arvind reference range : <=65. The reference range was not used to interpr et this result as mario l/abnormal. [facility]2015-10-09 22:53:19 Test Item Value Reference Range Interpretation Comments Alk Phos (test code = Alk Phos) 100 39-136 [facility]2015-10-09 22:53:19 Test Item Value Reference Range Interpretation Comments Bili Total (test code = Bili Total) 0.2 0.2-1.3 [facility]2015-10-09 22:53:19 Test Item Value Reference Range Interpretation Comments Potassium Lvl (test code = Potassium 3.9 3.5-5.1 Lvl) [facility]2015-10-09 22:53:19 Test Item Value Reference Range Interpretation Comments Sodium Lvl (test code = Sodium Lvl) 141 135-145 [facility]2015-10-09 22:53:19 Test Item Value Reference Range Interpretation Comments Calcium Lvl (test code = Calcium Lvl) 9.0 8.5-10.5 [facility]2015-10-09 22:53:19 Test Item Value Reference Range Interpretation Comments Chloride Lvl (test code = Chloride Lvl) 109 95-109 [facility]2015-10-09 22:53:19 Test Item Value Reference Range Interpretation Comments AGAP (test code = AGAP) 11.9 10.0-20.0 [facility]2015-10-09 22:53:19 Test Item Value Reference Range Interpretation Comments A/G Ratio (test code = A/G Ratio) 1.0 0.7-1.6 [facility]2015-10-09 22:53:19 Test Item Value Reference Range Interpretation Comments B/C Ratio (test code = B/C Ratio) 13 6-25 [facility]2015-10-09 22:53:19 Test Item Value Reference Range Interpretation Comments Globulin (test code = Globulin) 3.6 2.0-4.0 [facility]2015-10-09 22:53:19 Test Item Value Reference Range Interpretation Comments Magnesium Lvl (test code = Magnesium 1.8 1.8-2.4 Lvl) [facility] LakewayUxsdsnvXDDFZOJHPV7300-49-61 22:53:19 Test Item Value Reference Range Interpretation Comments Segs (test code = Segs) 57.5 45.0-75.0 [facility] LakewayHxkphoeOLMXHWCBYT9632-71-23 22:53:19 Test Item Value Reference Range Interpretation Comments Monocytes (test code = Monocytes) 7.6 2.0-12.0 [facility] LakewayMwmhzifXNCDANOOBD1164-54-05 22:53:19 Test Item Value Reference Range Interpretation Comments Basophils (test code = 1.0 See_Comment [Aut omated message] The Basophils) system which ge nerated this result tra nsmitted reference range : <=1.0. The reference r kat was not used to int erpret this result as normal/abnormal . [facility] LakewayOblxtgjBYTKMRKRAF4408-91-42 22:53:19 Test Item Value Reference Range Interpretation Comments Lymphocytes (test code = Lymphocytes) 32.9 20.0-40.0 [facility] LakewayDvelsikTXZIZZFBLH2993-69-09 22:53:19 Test Item Value Reference Range Interpretation Comments Eosinophils (test code = 1.0 See_Comment [A utomated message] The Eosinophils) system which ge nerated this result tra nsmitted reference range : <=4.0. The reference r kat was not used to int erpret this result as normal/abnormal . [facility] LakewayHtbjgmdMBODZKXXSO7498-48-99 22:53:19 Test Item Value Reference Range Interpretation Comments Lymphocytes # (test code = Lymphocytes 3.8 1.0-5.5 #) [facility] LakewayFrttihqVYNYYGERRM5187-91-89 22:53:19 Test Item Value Reference Range Interpretation Comments Segs-Bands # (test code = Segs-Bands #) 6.6 1.5-8.1 [facility] LakewayEibukdkGJJSTHRVJF8632-87-17 22:53:19 Test Item Value Reference Range Interpretation Comments Eosinophils # (test code 0.1 See_Comment [A utomated message] The = Eosinophils #) system [facility] generated this result tra nsmitted reference range : <=0.5. The reference r kat was not used to int erpret this result as normal/abnormal . [facility] LakewayDedyizqQGIBPFHEZU6994-39-63 22:53:19 Test Item Value Reference Range Interpretation Comments Monocytes # (test code 0.9 See_Comment [Aut omated message] The = Monocytes #) system which generated this result tra nsmitted reference range : <=0.8. The reference r kat was not used to int erpret this result as normal/abnormal . [facility] LakewayEauyaahTCNTQVXWDO4741-89-47 22:53:19 Test Item Value Reference Range Interpretation Comments Microcyte (test code = 1+ *ABN*(06/07/15 Microcyte) 5:53 PM) [facility] LakewaySdchdtrRILNOSDYGV7255-02-29 22:53:19 Test Item Value Reference Range Interpretation Comments Basophils # (test code 0.1 See_Comment [Aut omated message] The = Basophils #) system which generated this result tra nsmitted reference range : <=0.2. The reference r kat was not used to int erpret this result as normal/abnormal . [facility] LakewayUuqgxldULKMLIOCJL4757-07-28 22:53:19 Test Item Value Reference Range Interpretation Comments RBC (test code = RBC) 5.23 4.20-5.40 [facility] LakewayVdjfohfBYGGXGUDYV7715-96-41 22:53:19 Test Item Value Reference Range Interpretation Comments Platelet (test code = Platelet) 241 133-450 [facility] LakewayTalexikYAQKHWMQTO1849-15-45 22:53:19 Test Item Value Reference Range Interpretation Comments MPV (test code = MPV) 9.3 7.4-10.4 [facility] LakewayAmxvcfcAZOWVOASXJ6512-83-39 22:53:19 Test Item Value Reference Range Interpretation Comments RDW (test code = RDW) 16.5 11.5-14.5 [facility] LakewayLewpixsZFKHDZUIRI3115-10-00 22:53:19 Test Item Value Reference Range Interpretation Comments Hct (test code = Hct) 41.0 36.0-48.0 [facility] LakewayGjhnyyeTHBLEOHTME6644-11-60 22:53:19 Test Item Value Reference Range Interpretation Comments Hgb (test code = Hgb) 12.7 12.0-16.0 [facility] LakewayEazccxrUTVOLOGSAM0629-71-48 22:53:19 Test Item Value Reference Range Interpretation Comments WBC (test code = WBC) 11.5 3.7-10.4 [facility] LakewayDhfszghQNLXMJAARG3100-68-25 22:53:19 Test Item Value Reference Range Interpretation Comments MCH (test code = MCH) 24.3 pg 27.0-31.0 [facility] LakewayHqcrfatPIYWZFGBZD4275-85-65 22:53:19 Test Item Value Reference Range Interpretation Comments MCHC (test code = MCHC) 31.0 32.0-36.0 [facility] CenterAxsbyamVHIMSPMUNB7168-22-09 22:53:19 Test Item Value Reference Range Interpretation Comments MCV (test code = MCV) 78.4 80.0-98.0 [facility]2015-10-09 22:53:19 Test Item Value Reference Range Interpretation Comments FTI (test code = FTI) 2.5 [facility]2015-10-09 22:53:19 Test Item Value Reference Range Interpretation Comments TSH (test code = TSH) 1.540 0.360-3.740 [facility]2015-10-09 22:53:19 Test Item Value Reference Range Interpretation Comments T3 Uptake (test code = T3 Uptake) 31 31-39 [facility]2015-10-09 22:53:19 Test Item Value Reference Range Interpretation Comments T4 (test code = T4) 8.0 4.7-13.3 [facility]2015-10-09 22:53:19 Test Item Value Reference Range Interpretation Comments Transferrin (test code = Transferrin) 256 212-360 [facility]2015-10-09 22:53:19 Test Item Value Reference Range Interpretation Comments Vitamin B12 Lvl (test code = Vitamin [phone] B12 Lvl) [facility]2015-10-09 22:53:19 Test Item Value Reference Range Interpretation Comments eGFR (test code = eGFR) 70 [facility]2015-10-09 22:53:19 Test Item Value Reference Range Interpretation Comments Glucose Lvl (test code = Glucose Lvl) 103 70-99 [facility]2015-10-09 22:53:19 Test Item Value Reference Range Interpretation Comments Albumin Lvl (test code = Albumin Lvl) 3.6 3.5-5.0 [facility]2015-10-09 22:53:19 Test Item Value Reference Range Interpretation Comments CO2 (test code = CO2) 24 24-32 [facility]2015-10-09 22:53:19 Test Item Value Reference Range Interpretation Comments Total Protein (test code = Total 7.2 6.4-8.4 Protein) [facility]2015-10-09 22:53:19 Test Item Value Reference Range Interpretation Comments Creatinine Lvl (test code = Creatinine 1.1 0.5-1.4 Lvl) [facility]2015-10-09 22:53:19 Test Item Value Reference Range Interpretation Comments BUN (test code = BUN) 14 7-22 [facility]2015-10-09 22:53:19 Test Item Value Reference Range Interpretation Comments AST (test code = AST) 12 See_Comment [Auto mated message] The system which ge nerated this result transmit arvind reference range : <=37. The reference range was not used to interpr et this result as mario l/abnormal. [facility]2015-10-09 22:53:19 Test Item Value Reference Range Interpretation Comments ALT (test code = ALT) 41 See_Comment [Auto mated message] The system which ge nerated this result transmit arvind reference range : <=65. The reference range was not used to interpr et this result as mario l/abnormal. [facility]2015-10-09 22:53:19 Test Item Value Reference Range Interpretation Comments Alk Phos (test code = Alk Phos) 100 39-136 [facility]2015-10-09 22:53:19 Test Item Value Reference Range Interpretation Comments Bili Total (test code = Bili Total) 0.2 0.2-1.3 [facility]2015-10-09 22:53:19 Test Item Value Reference Range Interpretation Comments Potassium Lvl (test code = Potassium 3.9 3.5-5.1 Lvl) [facility]2015-10-09 22:53:19 Test Item Value Reference Range Interpretation Comments Sodium Lvl (test code = Sodium Lvl) 141 135-145 [facility]2015-10-09 22:53:19 Test Item Value Reference Range Interpretation Comments Calcium Lvl (test code = Calcium Lvl) 9.0 8.5-10.5 [facility]2015-10-09 22:53:19 Test Item Value Reference Range Interpretation Comments Chloride Lvl (test code = Chloride Lvl) 109 95-109 [facility]2015-10-09 22:53:19 Test Item Value Reference Range Interpretation Comments AGAP (test code = AGAP) 11.9 10.0-20.0 [facility]2015-10-09 22:53:19 Test Item Value Reference Range Interpretation Comments A/G Ratio (test code = A/G Ratio) 1.0 0.7-1.6 [facility]2015-10-09 22:53:19 Test Item Value Reference Range Interpretation Comments B/C Ratio (test code = B/C Ratio) 13 6-25 [facility]2015-10-09 22:53:19 Test Item Value Reference Range Interpretation Comments Globulin (test code = Globulin) 3.6 2.0-4.0 [facility]2015-10-09 22:53:19 Test Item Value Reference Range Interpretation Comments Magnesium Lvl (test code = Magnesium 1.8 1.8-2.4 Lvl) [facility]mjojwrNZTVZTGJFO7724[facility]10-[facility] 22:53:19 Test Item Value Reference Range Interpretation Comments Segs (test code = Segs) 57.5 45.0-75.0 [facility] LakewayNpenlgoNIHFBTRIGQ9269-55-31 22:53:19 Test Item Value Reference Range Interpretation Comments Monocytes (test code = Monocytes) 7.6 2.0-12.0 [facility] LakewayEbnxjcmZGQHKJLIQY1958-24-10 22:53:19 Test Item Value Reference Range Interpretation Comments Basophils (test code = 1.0 See_Comment [Aut omated message] The Basophils) system which ge nerated this result tra nsmitted reference range : <=1.0. The reference r kat was not used to int erpret this result as normal/abnormal . [facility] LakewayVmqzsdgNCENSWDQFC7204-92-07 22:53:19 Test Item Value Reference Range Interpretation Comments Lymphocytes (test code = Lymphocytes) 32.9 20.0-40.0 [facility] LakewayJzpxxxfTXWEHSBWOM3279-23-27 22:53:19 Test Item Value Reference Range Interpretation Comments Eosinophils (test code = 1.0 See_Comment [A utomated message] The Eosinophils) system which ge nerated this result tra nsmitted reference range : <=4.0. The reference r kat was not used to int erpret this result as normal/abnormal . [facility] LakewayUfngmxlACCUIIZGOQ5507-49-52 22:53:19 Test Item Value Reference Range Interpretation Comments Lymphocytes # (test code = Lymphocytes 3.8 1.0-5.5 #) [facility] LakewaySjzajwfQJMOQXTVYJ8619-13-32 22:53:19 Test Item Value Reference Range Interpretation Comments Segs-Bands # (test code = Segs-Bands #) 6.6 1.5-8.1 [facility] LakewayQhiyclbJBCMPGIQTC2687-67-63 22:53:19 Test Item Value Reference Range Interpretation Comments Eosinophils # (test code 0.1 See_Comment [A utomated message] The = Eosinophils #) system whic h generated this result tra nsmitted reference range : <=0.5. The reference r kat was not used to int erpret this result as normal/abnormal . [facility] LakewayZjtypzzGNHUWHZPJM2322-05-26 22:53:19 Test Item Value Reference Range Interpretation Comments Monocytes # (test code 0.9 See_Comment [Aut omated message] The = Monocytes #) system which generated this result tra nsmitted reference range : <=0.8. The reference r kat was not used to int erpret this result as normal/abnormal . [facility] LakewayPsuveevLHNTNDHUOT1695-25-59 22:53:19 Test Item Value Reference Range Interpretation Comments Microcyte (test code = 1+ *ABN*(06/07/15 Microcyte) 5:53 PM) [facility]wayMjshlkqRQHINRLVDJ1169-51-27 22:53:19 Test Item Value Reference Range Interpretation Comments Basophils # (test code 0.1 See_Comment [Aut omated message] The = Basophils #) system which generated this result tra nsmitted reference range : <=0.2. The reference r kat was not used to int erpret this result as normal/abnormal . [facility] LakewayLhgmqykCVKSGTTJKA6812-18-28 22:53:19 Test Item Value Reference Range Interpretation Comments RBC (test code = RBC) 5.23 4.20-5.40 [facility] LakewayNmbfhgmYRKIUVRMWG5398-72-15 22:53:19 Test Item Value Reference Range Interpretation Comments Platelet (test code = Platelet) 241 133-450 [facility] LakewaySuxudbfQSGDFUWDCD5157-47-15 22:53:19 Test Item Value Reference Range Interpretation Comments MPV (test code = MPV) 9.3 7.4-10.4 [facility] LakewayVvblvxoVWDPGSYKPW2074-82-92 22:53:19 Test Item Value Reference Range Interpretation Comments RDW (test code = RDW) 16.5 11.5-14.5 [facility] LakewayDvhwerzHRVTGCZYYP2557-34-13 22:53:19 Test Item Value Reference Range Interpretation Comments Hct (test code = Hct) 41.0 36.0-48.0 [facility] LakewayIqcucinWJYTXOTJUQ6231-28-95 22:53:19 Test Item Value Reference Range Interpretation Comments Hgb (test code = Hgb) 12.7 12.0-16.0 [facility] LakewayIuixcuyUTQUYZZGYR8471-60-98 22:53:19 Test Item Value Reference Range Interpretation Comments WBC (test code = WBC) 11.5 3.7-10.4 [facility] LakewayMamzsgtGMHWNMSRJN6593-73-29 22:53:19 Test Item Value Reference Range Interpretation Comments MCH (test code = MCH) 24.3 pg 27.0-31.0 [facility] LakewayFewdtutHCPYBVJLNP3271-51-83 22:53:19 Test Item Value Reference Range Interpretation Comments MCHC (test code = MCHC) 31.0 32.0-36.0 [facility] LakewayWyhevpfURYIKHOLXV6603-98-60 22:53:19 Test Item Value Reference Range Interpretation Comments MCV (test code = MCV) 78.4 80.0-98.0 [facility]TH[facility] PYJTF2416-22-64 22:53:19 Test Item Value Reference Range Interpretation Comments FTI (test code = FTI) 2.5 [facility]2015-10-09 22:53:19 Test Item Value Reference Range Interpretation Comments TSH (test code = TSH) 1.540 0.360-3.740 [facility]2015-10-09 22:53:19 Test Item Value Reference Range Interpretation Comments T3 Uptake (test code = T3 Uptake) 31 31-39 [facility]2015-10-09 22:53:19 Test Item Value Reference Range Interpretation Comments T4 (test code = T4) 8.0 4.7-13.3 [facility]2015-10-09 22:53:19 Test Item Value Reference Range Interpretation Comments Transferrin (test code = Transferrin) 256 212-360 [facility]2015-10-09 22:53:19 Test Item Value Reference Range Interpretation Comments Vitamin B12 Lvl (test code = Vitamin [phone] B12 Lvl) [facility]2015-10-09 22:53:19 Test Item Value Reference Range Interpretation Comments eGFR (test code = eGFR) 70 [facility]2015-10-09 22:53:19 Test Item Value Reference Range Interpretation Comments Glucose Lvl (test code = Glucose Lvl) 103 70-99 [facility]2015-10-09 22:53:19 Test Item Value Reference Range Interpretation Comments Albumin Lvl (test code = Albumin Lvl) 3.6 3.5-5.0 [facility]2015-10-09 22:53:19 Test Item Value Reference Range Interpretation Comments CO2 (test code = CO2) 24 24-32 [facility]2015-10-09 22:53:19 Test Item Value Reference Range Interpretation Comments Total Protein (test code = Total 7.2 6.4-8.4 Protein) [facility]2015-10-09 22:53:19 Test Item Value Reference Range Interpretation Comments Creatinine Lvl (test code = Creatinine 1.1 0.5-1.4 Lvl) [facility]2015-10-09 22:53:19 Test Item Value Reference Range Interpretation Comments BUN (test code = BUN) 14 7-22 [facility]2015-10-09 22:53:19 Test Item Value Reference Range Interpretation Comments AST (test code = AST) 12 See_Comment [Auto mated message] The system which ge nerated this result transmit arvind reference range : <=37. The reference range was not used to interpr et this result as mario l/abnormal. [facility]2015-10-09 22:53:19 Test Item Value Reference Range Interpretation Comments ALT (test code = ALT) 41 See_Comment [Auto mated message] The system which ge nerated this result transmit arvind reference range : <=65. The reference range was not used to interpr et this result as mario l/abnormal. [facility]2015-10-09 22:53:19 Test Item Value Reference Range Interpretation Comments Alk Phos (test code = Alk Phos) 100 39-136 [facility]2015-10-09 22:53:19 Test Item Value Reference Range Interpretation Comments Bili Total (test code = Bili Total) 0.2 0.2-1.3 [facility]2015-10-09 22:53:19 Test Item Value Reference Range Interpretation Comments Potassium Lvl (test code = Potassium 3.9 3.5-5.1 Lvl) [facility]2015-10-09 22:53:19 Test Item Value Reference Range Interpretation Comments Sodium Lvl (test code = Sodium Lvl) 141 135-145 [facility]2015-10-09 22:53:19 Test Item Value Reference Range Interpretation Comments Calcium Lvl (test code = Calcium Lvl) 9.0 8.5-10.5 [facility]2015-10-09 22:53:19 Test Item Value Reference Range Interpretation Comments Chloride Lvl (test code = Chloride Lvl) 109 95-109 [facility]2015-10-09 22:53:19 Test Item Value Reference Range Interpretation Comments AGAP (test code = AGAP) 11.9 10.0-20.0 [facility]2015-10-09 22:53:19 Test Item Value Reference Range Interpretation Comments A/G Ratio (test code = A/G Ratio) 1.0 0.7-1.6 [facility]2015-10-09 22:53:19 Test Item Value Reference Range Interpretation Comments Transferrin (test code = Transferrin) 256 212-360 [facility]2015-10-09 22:53:19 Test Item Value Reference Range Interpretation Comments Vitamin B12 Lvl (test code = Vitamin [phone] B12 Lvl) [facility]2015-10-09 22:53:19 Test Item Value Reference Range Interpretation Comments eGFR (test code = eGFR) 70 [facility]2015-10-09 22:53:19 Test Item Value Reference Range Interpretation Comments Glucose Lvl (test code = Glucose Lvl) 103 70-99 [facility]2015-10-09 22:53:19 Test Item Value Reference Range Interpretation Comments Albumin Lvl (test code = Albumin Lvl) 3.6 3.5-5.0 [facility]2015-10-09 22:53:19 Test Item Value Reference Range Interpretation Comments CO2 (test code = CO2) 24 24-32 [facility]2015-10-09 22:53:19 Test Item Value Reference Range Interpretation Comments Total Protein (test code = Total 7.2 6.4-8.4 Protein) [facility]2015-10-09 22:53:19 Test Item Value Reference Range Interpretation Comments Creatinine Lvl (test code = Creatinine 1.1 0.5-1.4 Lvl) [facility]2015-10-09 22:53:19 Test Item Value Reference Range Interpretation Comments BUN (test code = BUN) 14 7-22 [facility]2015-10-09 22:53:19 Test Item Value Reference Range Interpretation Comments AST (test code = AST) 12 See_Comment [Auto mated message] The system which ge nerated this result transmit arvind reference range : <=37. The reference range was not used to interpr et this result as mario l/abnormal. [facility]2015-10-09 22:53:19 Test Item Value Reference Range Interpretation Comments ALT (test code = ALT) 41 See_Comment [Auto mated message] The system which ge nerated this result transmit arvind reference range : <=65. The reference range was not used to interpr et this result as mario l/abnormal. [facility]2015-10-09 22:53:19 Test Item Value Reference Range Interpretation Comments Alk Phos (test code = Alk Phos) 100 39-136 [facility]2015-10-09 22:53:19 Test Item Value Reference Range Interpretation Comments Bili Total (test code = Bili Total) 0.2 0.2-1.3 [facility]2015-10-09 22:53:19 Test Item Value Reference Range Interpretation Comments Potassium Lvl (test code = Potassium 3.9 3.5-5.1 Lvl) [facility]2015-10-09 22:53:19 Test Item Value Reference Range Interpretation Comments Sodium Lvl (test code = Sodium Lvl) 141 135-145 [facility]2015-10-09 22:53:19 Test Item Value Reference Range Interpretation Comments Calcium Lvl (test code = Calcium Lvl) 9.0 8.5-10.5 [facility]2015-10-09 22:53:19 Test Item Value Reference Range Interpretation Comments Chloride Lvl (test code = Chloride Lvl) 109 95-109 [facility]2015-10-09 22:53:19 Test Item Value Reference Range Interpretation Comments AGAP (test code = AGAP) 11.9 10.0-20.0 [facility]2015-10-09 22:53:19 Test Item Value Reference Range Interpretation Comments A/G Ratio (test code = A/G Ratio) 1.0 0.7-1.6 [facility]2015-10-09 22:53:19 Test Item Value Reference Range Interpretation Comments B/C Ratio (test code = B/C Ratio) 13 6-25 [facility]2015-10-09 22:53:19 Test Item Value Reference Range Interpretation Comments Globulin (test code = Globulin) 3.6 2.0-4.0 [facility]2015-10-09 22:53:19 Test Item Value Reference Range Interpretation Comments Magnesium Lvl (test code = Magnesium 1.8 1.8-2.4 Lvl) [facility] LakewayIcogsagIKQRSLJJVF0205-25-47 22:53:19 Test Item Value Reference Range Interpretation Comments Segs (test code = Segs) 57.5 45.0-75.0 [facility] LakewayGhpgtreRZMKEYBUEM2223-62-80 22:53:19 Test Item Value Reference Range Interpretation Comments Monocytes (test code = Monocytes) 7.6 2.0-12.0 [facility] LakewayAopojyiHDKRRHPDRO6114-81-05 22:53:19 Test Item Value Reference Range Interpretation Comments Basophils (test code = 1.0 See_Comment [Aut omated message] The Basophils) system which ge nerated this result tra nsmitted reference range : <=1.0. The reference r kat was not used to int erpret this result as normal/abnormal . [facility] LakewayMbwnkcpSUCGHWFVMP8220-62-33 22:53:19 Test Item Value Reference Range Interpretation Comments Lymphocytes (test code = Lymphocytes) 32.9 20.0-40.0 [facility] LakewayMbmnccyBZSGENBDNT7959-06-64 22:53:19 Test Item Value Reference Range Interpretation Comments Eosinophils (test code = 1.0 See_Comment [A utomated message] The Eosinophils) system which ge nerated this result tra nsmitted reference range : <=4.0. The reference r kat was not used to int erpret this result as normal/abnormal . [facility] LakewayIoweomlNSAHTTKMLR4504-48-93 22:53:19 Test Item Value Reference Range Interpretation Comments Lymphocytes # (test code = Lymphocytes 3.8 1.0-5.5 #) [facility] LakewayJoowxsaEXMKUDODOU4220-41-82 22:53:19 Test Item Value Reference Range Interpretation Comments Segs-Bands # (test code = Segs-Bands #) 6.6 1.5-8.1 [facility] LakewayZfpequkZTSFXISPSG9405-83-88 22:53:19 Test Item Value Reference Range Interpretation Comments Eosinophils # (test code 0.1 See_Comment [A utomated message] The = Eosinophils #) system whic h generated this result tra nsmitted reference range : <=0.5. The reference r kat was not used to int erpret this result as normal/abnormal . [facility] LakewayGapdfqaOBDVJARHCQ3129-78-14 22:53:19 Test Item Value Reference Range Interpretation Comments Monocytes # (test code 0.9 See_Comment [Aut omated message] The = Monocytes #) system which generated this result tra nsmitted reference range : <=0.8. The reference r kat was not used to int erpret this result as normal/abnormal . [facility] LakewayNuwlshoWQSYWUYBXV0915-68-96 22:53:19 Test Item Value Reference Range Interpretation Comments Microcyte (test code = 1+ *ABN*(06/07/15 Microcyte) 5:53 PM) [facility] LakewayHbuoeeoIQOENENDYS6045-60-59 22:53:19 Test Item Value Reference Range Interpretation Comments Basophils # (test code 0.1 See_Comment [Aut omated message] The = Basophils #) system which generated this result tra nsmitted reference range : <=0.2. The reference r kat was not used to int erpret this result as normal/abnormal . [facility] LakewayRppgdocQWLHYTFORA1236-04-55 22:53:19 Test Item Value Reference Range Interpretation Comments RBC (test code = RBC) 5.23 4.20-5.40 [facility] LakewayIvnzlfvKFZPXWIBAQ4819-07-44 22:53:19 Test Item Value Reference Range Interpretation Comments Platelet (test code = Platelet) 241 133-450 [facility] LakewayGohyyhbNFKSMZSRFH9013-69-28 22:53:19 Test Item Value Reference Range Interpretation Comments MPV (test code = MPV) 9.3 7.4-10.4 [facility] LakewayZugyekzVKDQSDWHGW9107-01-56 22:53:19 Test Item Value Reference Range Interpretation Comments RDW (test code = RDW) 16.5 11.5-14.5 [facility] LakewayJgqetwhPTJZHUTFCV2971-25-78 22:53:19 Test Item Value Reference Range Interpretation Comments Hct (test code = Hct) 41.0 36.0-48.0 [facility] LakewayTwmdycjSLMOXMTOJZ4208-50-53 22:53:19 Test Item Value Reference Range Interpretation Comments Hgb (test code = Hgb) 12.7 12.0-16.0 [facility] LakewayDddujadXMXKYDIVDH3683-35-66 22:53:19 Test Item Value Reference Range Interpretation Comments WBC (test code = WBC) 11.5 3.7-10.4 [facility] LakewayOaqttzpDVRBNPSHSN3748-96-93 22:53:19 Test Item Value Reference Range Interpretation Comments MCH (test code = MCH) 24.3 pg 27.0-31.0 [facility] LakewayQynkdsyCMAWAAJEIW0765-86-51 22:53:19 Test Item Value Reference Range Interpretation Comments MCHC (test code = MCHC) 31.0 32.0-36.0 [facility] LakewayDwotatpXAAFKNIUXV1208-99-10 22:53:19 Test Item Value Reference Range Interpretation Comments MCV (test code = MCV) 78.4 80.0-98.0 [facility] CenterTHY[facility]ID [id number] 22:53:19 Test Item Value Reference Range Interpretation Comments FTI (test code = FTI) 2.5 [facility] [id number] 22:53:19 Test Item Value Reference Range Interpretation Comments TSH (test code = TSH) 1.540 0.360-3.740 [facility] CenterTH[facility] RYRFB7607-75-30 22:53:19 Test Item Value Reference Range Interpretation Comments T3 Uptake (test code = T3 Uptake) 31 31-39 [facility] CenterTHYPARKVIEW REGIONAL MEDICAL CENTERLZMTW8102-85-83 22:53:19 Test Item Value Reference Range Interpretation Comments T4 (test code = T4) 8.0 4.7-13.3 [facility]
[2023-01-15 10:39] LABS: Absolute Lymphocytes (CBC) 2.2 K/uL (0.7-4.9); Hematocrit 40.7 % (36.0-45.0); MCV 77.5 fL (80-100); MPV 8.9 fL (7.6-11.3); RBC Red Blood Cell Count 5.25 M/uL (3.86-4.86)
[2023-01-15 10:42] LABS: Specific Gravity 1.021 (1.005-1.030); Urine Bacteria <20 /HPF (<20); Urine Bilirubin NEGATIVE (Negative); Urine Blood Negative (Negative); Urine Clarity Turbid (Clear); Urine Color Light-Yellow (Yellow); Urine Glucose NEGATIVE (Negative); Urine Mucus Slight /HPF (None Seen); Urine Protein NEGATIVE (Negative); Urine RBC <5 /HPF (None Seen); Urine Urobilinogen Normal (Normal)
[2023-01-15 10:43] LABS: Specific Gravity 1.021 (1.005-1.030)
[2023-01-15 10:54] LABS: Albumin 3.4 g/dL (3.4-5.0); Bilirubin Total 0.3 mg/dL (0.2-1.0); Potassium 3.5 mEq/L (3.5-5.1); Protein, Total 6.5 g/dL (6.4-8.2)
--- NOTE | 2023-01-15 11:21 | RAD REPORT ---
EXAM DESCRIPTION: US - Transvaginal Study Probe - 01/15/2023 11:03 am CLINICAL HISTORY: r/o torsion COMPARISON: Abdomen Pelvis Wo Contrast dated 12/22/2022; Lower Ext Angio dated 01/15/2023; Pelvis An mary kate dated 01/15/2023Transvaginal Study Probe dated 10/17/2022 TECHNIQUE: Sonographic grayscale and color flow images of the pelvis were obtained through a trans vaginal approach. FINDINGS: The uterus is normal in size, shape and echotexture. The uterus measures . The endometrial stripe measures 5 mm, normal. The right ovary is not visualized due to over shadowing bowel. Left ovary measures 3.6 x 3.1 x 2.6 c entimeter. It contains a dominant cyst or follicle measuring 2.9 centimeter. No suspicious ovarian or parovarian lesions. No adnexal masses. Normal Doppler blood flow was demonstrated to the left ovary. No significant pelvic ascites. IMPRESSION: Dominant follicle or cyst measuring up to 2.9 centimeter in the left ovary, likely physi ologic. No endometrial abnormalities. Nonvisualization of the right ovary due to over shadowing bowel, which limits evaluation.
--- NOTE | 2023-01-15 11:29 | EDPHYS ---
Physician Documentation [facility] Name: Kyra Quispe Age: 32 yrs Sex: Female : 1990 Arrival Date: 01/15/2023 Time: 10:00 Bed 12 Private MD: ED Physician Kar Dixon HPI: 01/15 11:35 This 32 yrs old Female presents to ER via Ambulatory with complaints of Abdominal Pain. kb 11:35 The patient presents with abdominal pain that is diffuse. Onset: The symptoms/episode kb began/occurred 4 day(s) ago. The symptoms do not radiate. Associated signs and symptoms: Pertinent positives: nausea and vomiting, Pertinent negatives: diarrhea, fever. The symptoms are described as constant. Modifying factors: The symptoms are alleviated by nothing, the symptoms are aggravated by pressure, walking. Severity of pain: At its worst the pain was moderate in the emergency department the pain is unchanged. The patient has experienced similar episodes in the past. The patient has not recently seen a physician. Pt reports she was diagnosed with an ovarian cyst on the left 5 months ago. States she has had intermittent pain with the cyst sine then. This time the pain started 4 days ago. Pain originates in LLQ and radiates to entire abd. Reports nausea and vomiting which is normal when the pain comes on. . 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 - Social history:: Smoking status: Patient denies any tobacco usage or history of. ROS: 11:35 Constitutional: Negative for fever, chills, and weight loss. kb 11:35 Abdomen/GI: Positive for abdominal pain, nausea and vomiting, Negative for diarrhea, constipation. 11:35 All other systems are negative. Exam: 11:35 Constitutional: This is a well developed, well nourished patient who is awake, alert, kb and in no acute distress. Head/Face: Normocephalic, atraumatic. ENT: Moist Mucous membranes Cardiovascular: Regular rate and rhythm with a normal S1 and S2. No gallops, murmurs, or rubs. No pulse deficits. Respiratory: Respirations even and unlabored. No increased work of breathing. Talking in full sentences Skin: Warm, dry with normal turgor. Normal color. MS/ Extremity: Pulses equal, no cyanosis. Neurovascular intact. Full, normal range of motion. Neuro: Awake and alert, GCS 15, oriented to person, place, time, and situation. Moves all extremities. Normal gait. 11:35 Abdomen/GI: Inspection: obese Bowel sounds: normal, Palpation: soft, in all quadrants, mild abdominal tenderness, in all quadrants. Vital Signs: 10:05 BP 132 / 98; Pulse 67; Resp 17; Temp 97.9; Pulse Ox 100% ; Weight 141.97 kg; Height 5 jl7 ft. 7 in. ; Pain 9/10; 10:05 Body Mass Index 49.02 (141.97 kg, 170.18 cm) jl7 10:05 Pain Scale: Adult jl7 MDM: 10:03 Patient medically screened. kb 11:37 Differential diagnosis: non-specific abd pain, Ovarian Torsion, ovarian cyst, UTI. Data kb reviewed: vital signs, nurses notes. Test considered but Not performed: CT: CT abd/pelvis considered, but pt has had this same pain multiple times in the last 5 months due to a cyst. Pt is nontoxic in appearance, tolerating po intake and afebrile. Given return precautions. Counseling: I had a detailed discussion with the patient and/or guardian regarding: the historical points, exam findings, and any diagnostic results supporting the discharge/admit diagnosis, lab results, radiology results, the need for outpatient follow up, a family practitioner, an OB/Gyne specialist, to return to the emergency department if symptoms worsen or persist or if there are any questions or concerns that arise at home. 01/15 10:12 Order name: CBC with Diff; Complete Time: 10:46 kb 01/15 10:12 Order name: CMP; Complete Time: 10:58 kb 01/15 10:12 Order name: Test, Urine; Complete Time: 10:46 kb 01/15 10:12 Order name: Urinalysis w/ reflexes; Complete Time: 10:46 kb 01/15 10:12 Order name: US Transvaginal Study (Probe); Complete Time: 11:22 kb 01/15 10:12 Order name: IV Saline Lock; Complete Time: 10:37 kb 01/15 10:12 Order name: Labs collected and sent; Complete Time: 10:37 kb Administered Medications: 10:38 Drug: NS 0.9% IV 1000 ml Route: IV; Rate: 1 bolus; Site: right forearm; jl7 10:39 Drug: Ondansetron IVP 4 mg Route: IVP; Site: right forearm; jl7 10:59 Drug: TORadol - Ketorolac IVP 15 mg Route: IVP; Site: right forearm; jl7 Disposition Summary: 01/15/23 11:28 Discharge Ordered Location: Home kb Condition: Stable kb Diagnosis - Other ovarian cysts kb Followup: kb - With: Private Physician - When: 2 - 3 days - Reason: Recheck today's complaints, Continuance of care, Re-evaluation by your physician Followup: kb - With: Emergency Department - When: As needed - Reason: Worsening of condition Followup: kb - With: Phoebe Keller MD - When: 2 - 3 days - Reason: Recheck today's complaints Discharge Instructions: - Discharge Summary Sheet kb - Ovarian Cyst, [id number] kb Forms: - Medication Reconciliation Form kb - Thank You Letter kb - Antibiotic Education kb - Prescription Opioid Use kb Prescriptions: - Diclofenac Sodium 75 mg Oral tablet,delayed release (DR/EC) - take 1 tablet by ORAL route 2 times per day As needed; 30 tablet; Refills: 0, kb Product Selection Permitted Signatures: Dispatcher [employer] Josephine Valle, YURI CHOE-Tabby Jain, RN RN jl7
--- NOTE | 2023-01-15 11:29 | ER ---
Nurse's Notes [facility] Name: Kyra Quispe Age: 32 yrs Sex: Female : 1990 Arrival Date: 01/15/2023 Time: 10:00 Bed 12 Private MD: Diagnosis: Other ovarian cysts Presentation: 01/15 10:05 Chief complaint: Patient states: LLQ abdominal pain x 4 days, hx of left ovarian cyst. jl7 10:31 Coronavirus screen: At this time, the client does not indicate any symptoms associated jl7 with coronavirus-19. Ebola Screen: No symptoms or risks identified at this time. Initial Sepsis Screen: Does the patient meet any 2 criteria? No. Patient's initial sepsis screen is negative. Does the patient have a suspected source of infection? No. Patient's initial sepsis screen is negative. Risk Assessment: Do you want to hurt yourself or someone else? Patient reports no desire to harm self or others. Onset of symptoms was January 11, 2023. Care prior to arrival: None. 10:31 Method Of Arrival: Ambulatory [facility] 10:31 Acuity: MONE 3 jl7 Triage Assessment: 10:33 General: Appears in no apparent distress. uncomfortable, Behavior is calm, cooperative, jl7 appropriate for age. Pain: Complains of pain in left lower quadrant Pain radiates to right lower quadrant Pain currently is 9 out of 10 on a pain scale. Quality of pain is described as shooting, Pain began x4 days Is continuous. Neuro: Level of Consciousness is awake, alert, obeys commands, Oriented to person, place, time, situation. Cardiovascular: Patient's skin is warm and dry. Respiratory: Airway is patent Respiratory effort is even, unlabored, Respiratory pattern is regular, symmetrical. GI: Abdomen is round obese, Reports nausea. Derm: Skin is pink, warm \T\ dry. 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 - Social history:: Smoking status: Patient denies any tobacco usage or history of. Screenin:38 [facility] ED Fall Risk Assessment (Adult) History of falling in the last 3 months, jl7 including since admission No falls in past 3 months (0 pts) Confusion or Disorientation No (0 pts) Intoxicated or Sedated No (0 pts) Impaired Gait No (0 pts) Mobility Assist Device Used No (0 pt) Altered Elimination No (0 pt) Score/Fall Risk Level 0 - 2 = Low Risk Oriented to surroundings, Maintained a safe environment. Abuse screen: Denies threats or abuse. Denies injuries from another. Nutritional screening: No deficits noted. Tuberculosis screening: No symptoms or risk factors identified. Assessment: 11:40 Reassessment: Patient appears in no apparent distress at this time. Patient and/or hb family updated on plan of care and expected duration. Pain level reassessed. Patient is alert, oriented x 3, equal unlabored respirations, skin warm/dry/pink. Vital Signs: 10:05 BP 132 / 98; Pulse 67; Resp 17; Temp 97.9; Pulse Ox 100% ; Weight 141.97 kg; Height 5 jl7 ft. 7 in. ; Pain 9/10; 10:05 Body Mass Index 49.02 (141.97 kg, 170.18 cm) jl7 10:05 Pain Scale: Adult jl7 ED Course: 10:03 Patient arrived in ED. mr 10:03 Josephine Forrester FNP-C is PHCP. kb 10:03 Kar Dixon MD is Attending Physician. kb 10:20 Initial lab(s) drawn, by sd, sent to lab. Urine collected: clean catch specimen, clear. jl7 Inserted saline lock: 22 gauge in left forearm, using aseptic technique. Blood collected. 10:21 Tabby Parmar, CY is Primary Nurse. jl7 10:32 Triage completed. jl7 10:33 Arm band placed on right wrist. jl7 10:38 Patient has correct armband on for positive identification. Bed in low position. Call jl7 light in reach. Side rails up X 1. Pulse ox on. NIBP on. 11:05 Transvaginal Study (Probe) In Process Unspecified. EDMS 11:28 Phoebe Keller MD is Referral Physician. kb 11:41 No provider procedures requiring assistance completed. IV discontinued, intact, hb bleeding controlled, No redness/swelling at site. Administered Medications: 10:38 Drug: NS 0.9% IV 1000 ml Route: IV; Rate: 1 bolus; Site: right forearm; jl7 10:39 Drug: Ondansetron IVP 4 mg Route: IVP; Site: right forearm; jl7 10:59 Drug: TORadol - Ketorolac IVP 15 mg Route: IVP; Site: right forearm; jl7 Medication: 10:38 VIS not applicable for this client. jl7 Outcome: 11:28 Discharge ordered by . kb 11:41 Discharged to home ambulatory. hb 11:41 Condition: stable 11:41 Discharge instructions given to patient, Instructed on discharge instructions, follow up and referral plans. medication usage, Demonstrated understanding of instructions, follow-up care, medications, Prescriptions given X 1. 11:41 Patient left the ED. hb Signatures: Dispatcher [employer] EDKS Josephine Forrester, COMMUNITY HEALTH NURSING DIRECTOR-C COMMUNITY HEALTH NURSING DIRECTOR-Ckb Kenroy Vicky mr Sandra Pineda, RN RN Tabby Parmar RN RN jl7 Corrections: (The following items were deleted from the chart) 10:33 10:31 Chief complaint: Patient states: LLQ abdominal pain x 4 days, hx of left ovarian jl7 cyst jl7 10:33 10:31 BP 132 / 98; Pulse 67bpm; Resp 17bpm; Pulse Ox 100%; Temp 97.9F; 141.97 kg; jl7 Height 5 ft. 7 in.; BMI: 49.0; Pain 9/10, Adult; jl7
[2023-01-15 12:06] VITALS: BP 132/98; TEMP 97.9; O2SAT 100
== END 2023-01-15 11:41 | disposition home or self-care (01) ==
LOC: ER 10:00
DX: N83.292 Other ovarian cyst, left side (principal); R11.2 Nausea with vomiting, unspecified; Z88.8 Allergy status to other drugs, medicaments and biological substances; Z91.040 Latex allergy status; Z91.048 Other nonmedicinal substance allergy status
CPT/HCPCS: 85025; 81001; 36415; 81025; 80053; 76830; J2405; J7030

== ENCOUNTER 2023-01-15 23:10 | Emergency (ER) | payer OTHER ==
--- OUTSIDE RECORDS SUMMARY | 2023-01-15 23:44 | XMS REPORT | Continuity of Care Document ---
:[address] [facility] t Address [address] [facility] [address] [place] [address] Care Team Providers Name Role Phone JAMAR CASAS Primary Care Physician Unavailable DOUG HAMMER Attending Clinician Unavailable Doug Gamble Attending Clinician PAM COLE Attending Clinician Unavailable Anahi Hoang MD Attending Clinician DA CHAPIN Attending Clinician Unavailable GC_[email or web address] Attending Clinician Unavailable JENNY FLETCHER Attending Clinician Unavailable BRIE GALVAN Attending Clinician Unavailable Kaycee Longo Attending Clinician [phone] LEYLA GALVAN Attending Clinician Unavailable Thania Bolanos Attending Clinician THANIA BOLANOS Attending Clinician Unavailable Sukhwinder Thomas Attending Clinician SUKHWINDER THOMAS Attending Clinician Unavailable AMBREEN_FARHANA Attending Clinician Unavailable JERZY BRADFORD Attending Clinician Unavailable JANENE MASSEY Attending Clinician Unavailable HIEU MILLER Attending Clinician Unavailable BRIE KEN Attending Clinician Unavailable ESTHER MIRZA Attending Clinician Unavailable DIRK MARIE Attending Clinician Unavailable KATHRYN ZELAYA Attending Clinician Unavailable PRESLEY PERAZA Attending Clinician Unavailable Laith Luevano MD Attending Clinician ANSHU GUZMÁN Attending [...] Attending Clinician DOUG HAMMER Admitting Clinician Unavailable _SWHANBW_Chloé_R Admitting Clinician Unavailable AMBREEN_FLETCHERA Admitting Clinician Unavailable González Flannery Admitting Clinician Tommy Del Toro Admitting Clinician Payers Payer Name Policy Type Policy Number Effective Date Expiration Date Davie BRADLEY [id number] 2020 2021 [employer] 00:00:00 00:00:00 EXCEPT [facility] [id number] [place] [employer] [id number] 2022 OUT OF NETWORK 00:00:00 TP68 [facility] [id number] 2021 PROGRAM 00:00:00 [place] [id number] 2021 [facility] 00:00:00 PROGRAM (MEDICAID) [place] [employer] [id number] 2020 00:00:00 Problems Condition Condition Condition Status Onset Resolution Last Treating Co mments Source Name Details Category Date Date Treatment Clinician Date FACE/RT FACE/RT Diagnosis Active 2022-03-19 Memoria SIDE SIDE 03-18 13:51:00 l NUMBNESS NUMBNESS 00:00: Garrett lynch Active 00 03/18/2022 [facility] FEVER, FEVER, Diagnosis Active 2022-03-13 Me moria BODY PAIN BODY PAIN 03-13 21:46:00 l Active 00:00: Dav 03/13/[address] [place] [address] Hypertensi Hypertensi Problem Active P rivia ve ve 3-29 Medical disorder Disorder 00:00: 00 SENT BY SENT BY Diagnosis Active 2021-03-18 Erik SAINI Active 01-20 15:44:00 l 01/20/2021 00:00: Garrett VILLA [address] INTRACTABL INTRACTAB Diagnosis Active 2015-10-17 Memoria E VOMITING LE 09-02 16:18:00 l S/P VOMITING 00:00: Dav GASTRIC S/P 00 SLEEVE GASTRIC SLEEVE Active 09/02/2015 [facility] VOMITTING VOMITTING Diagnosis Active 2015-09-17 Memoria Active 09-02 18:24:00 l 09/02/2015 00:00: Garrett lynch [facility] ABDOMINAL ABDOMINAL Diagnosis Active 2014-082015-08-26 Memoria PAIN PAIN 10-27 11:29:00 l Active 00:00: Dav 08/26/2015 00 [facility] UNK UNK Diagnosis Active 2014-082015-08-06 Mem oria Active 10-06 12:24:00 l 08/05/2015 00:00: Garrett lynch 00 [facility] E66.01 E66.01 Diagnosis Active 2014-082015-08-16 Me moria Active 2- 14:56:00 l 08/05/2015 00:00: Garrett lynch 00 [facility] MORBID MORBID Diagnosis Active 2014-082015-06-24 Ct mori OBESITY OBESITY 0-23 15:17:00 l Active 00:00: [place] 06/21/2015 00 [facility] K21.9; K21.9; Diagnosis Active 2014-082015-06-24 M emoria GASTRO-ESO GASTRO-ESO 0- 09:25:00 l PHAGEAL PHAGEAL 00:00: Dav REFLUX REFLUX 00 DISEASE DISEASE Active 06/19/2015 [facility] K21.0 K21.0 Diagnosis Active 2015-06-10 Mem oria Active 05-07 06:23:00 l 05/07/2015 00:00: Garrett lynch 00 [facility] Bipolar Bipolar Problem Resolve 2015-09-22 M emoria (qualifier (qualifier d 02:57:40 l value) value) Dav Resolved Problem 09/22/2015 [facility] Obesity Obesity Problem Resolve 2015-09-22 M emoria (disorder) (disorder) d 02:57:40 l Resolved Dav Problem 09/22/2015 [facility] Acid Acid Problem Active 2015-09-22 Memor ia reflux reflux 02:57:40 l (finding) (finding) Herm kailash Active Problem 09/22/2015 [facility] Pain in Pain in Problem Active 2022-03-21 Ct mori lower limb lower limb 21:09:41 l (finding) (finding) Herm kailash Active Problem 03/21/2022 [facility] GASTRO-ESO GASTRO-ES Diagnosis Active 2015-06-10 Memoria PHAGEAL OPHAGEAL 06:23:00 l REFLUX REFLUX [place] DISEASE DISEASE WITH ES WITH ES Active [facility] MORBID MORBID Diagnosis Active 2015-08-16 Ct moria (SEVERE) (SEVERE) 14:56:00 l OBESITY OBESITY [place] DUE TO DUE TO EXCESS CA EXCESS CA Active [facility] VOMITING, VOMITING, Diagnosis Active 2015-10-17 Memoria UNSPECIFIE UNSPECIFIE 16:18:00 l D D Active Dav [facility] History of Past Illness Condition Condition Condition Status Onset Resolution Last Treating Co mments Source Name Details Category Date Date Treatment Clinician Date 2018-nCoV Problem 2022-03-21 2022-03-21 Memoria acute 2018-nCoV 03-19 21:09:41 21:09:41 l respirator acute 06:21: Garrett lynch y disease respirator 00 y disease 03/19/2022 03/21/2022 [facility] Paresthesi Problem 2022-03-21 2022-03-21 Memoria a of skin Paresthesi 03-19 21:09:41 21:09:41 l a of skin 06:21: Dav 03/19/2022 00 03/21/2022 [facility] Hypokalemi Hypokalem Problem 2022-03-21 2022-03-21 Memoria a ia 03-19 21:09:41 21:09:41 l 03/19/2022 06:21: Garrett lynch 03/21/2022 00 [facility] Discharge Discharge Problem 2014-082015-08-29 2015-08-29 Memoria Diagnosis: Diagnosis: 10-27 03:22:03 03:22:03 l Abdominal Abdominal 06:00: Herm kailash pain pain 00 08/26/2015 08/29/2015 [facility] Allergies, Adverse Reactions, Alerts Allergy Allergy [...] l Dav Tessalon Tessalon Active Memori a Alexi Lantiguaann Latex Allergy Active [facility] subst[facility] e Social History Social Habit Start Date Stop Date Quantity Comments Source Gender identity [facility] Sexual orientation [facility] History of Social 2022-11-03 2022-11-[address] function 00:00:00 00:00:00 Hospital Exposure to 2022-08-16 2022-08-26 Not sure University SARS-CoV-2 (event) 00:00:00 13:07:00 [facility] Alcohol intake 2022-06-11 2022-06-11 Current [facility] 00:00:00 00:00:00 non-drinker of Hospital alcohol (finding) Tobacco use and 2018-05-14 2018-05-14 Smokeless [facility] exposure 00:00:00 00:00:00 tobacco non-user Hospital Social History 2015-08-15 2015-08-15 [facility] rosa 18:23:25 18:23:25 Sex Ass[birth year] At [birth year] [facility] 00:[facility] Hospital Smoking Status Start Date Stop Date Source Tobacco smoking consumption [facility] Never smoked tobacco [facility] Medications Ordered Filled Start Stop Current Ordering Indication Dosage Frequency Signature Comments Components Source Medication Medication Date Date Medication? Clinician (SIG) Name Name albuterol 2021-08 Yes [id number] 2{puff} Inhale 2 [facility] 90 2-28 Puffs ity of mcg/actuati 00:00: every 4 Imer as on inhaler 00 (four) Medical hours as Branch needed for Wheezing or Shortness of Breath. cephalexin 2021-08 No 500mg Q.[id number] Take 1 [facility] (Keflex) 06-17 [id number] capsule s t 500 MG 00:00: 04:59 [...] to 5 days. cephalexin 2021-08 No 500mg Q.[id number] Take 1 [facility] (Keflex) 10- [id number] capsule s t 500 MG 00:00: 04:59 [...] to 5 days. cephalexin 2021-08- No 500mg Q.[id number] Take 1 [facility] (Keflex) 0-13 10- [id number] capsule s t 500 MG 00:00: 04:59 [...] to 5 days. cephalexin 2021-08- No 500mg Q.[id number] Take 1 [facility] (Keflex) 0-13 - [id number] capsule s t 500 MG 00:00: 04:59 [...] to 5 days. cephalexin 2021-08- No 500mg Q.[id number] Take 1 [facility] (Keflex) 0-13 10- [id number] capsule s t 500 MG 00:00: 04:59 [...] to 5 days. cephalexin 2021-08- No 500mg Q.[id number] Take 1 [facility] (Keflex) 0-13 10-19 [id number] capsule s t 500 MG 00:00: 04:59 [...] to 5 days. cephalexin 2021-08- No 500mg Q.[id number] Take 1 [facility] (Keflex) 0-13 10-19 [id number] capsule s t 500 MG 00:00: 04:59 [...] potassium No /= 14 Memoria chloride 7-21 [place], l 05:55: may Dav 00 dissolve each 20 mEq tablet in 4 oz of water. Allow about 2 minutes for the tablets to disintegra te. Stir before giving to prepare slurry and administer . Please exclude patient's with feeding tube less than 14 [place] (Dobhoff, J-tube, etc) and pediatric and patients. potassium 2022-0 No /= 14 Memoria chloride 7-21 [place], l 05:55: may Dav 00 dissolve each 20 mEq tablet in 4 oz of water. Allow about 2 minutes for the tablets to disintegra te. Stir before giving to prepare slurry and administer . Please exclude patient's with feeding tube less than 14 [place] (Dobhoff, J-tube, etc) and pediatric and patients. potassium 2022-0 No /= 14 Memoria chloride 7-21 [place], l 05:55: may [place] 00 dissolve each 20 mEq tablet in 4 oz of water. Allow about 2 minutes for the tablets to disintegra te. Stir before giving to prepare slurry and administer . Please exclude patient's with feeding tube less than 14 [place] (Dobhoff, J-tube, etc) and pediatric and patients. potassium 2022-0 No /= 14 Memoria chloride 7-21 [place], l 05:55: may Dav 00 dissolve each 20 mEq tablet in 4 oz of water. Allow about 2 minutes for the tablets to disintegra te. Stir before giving to prepare slurry and administer . Please exclude patient's with feeding tube less than 14 [place] (Dobhoff, J-tube, etc) and pediatric and patients. potassium 2022-0 No /= 14 Memoria chloride 7-21 [place], l 05:55: may [place] 00 dissolve each 20 mEq tablet in 4 oz of water. Allow about 2 minutes for the tablets to disintegra te. Stir before giving to prepare slurry and administer . Please exclude patient's with feeding tube less than 14 [place] (Dobhoff, J-tube, etc) and pediatric and patients. potassium 2022-0 No /= 14 Memoria chloride 7-21 [place], l 05:55: may Dav 00 dissolve each 20 mEq tablet in 4 oz of water. Allow about 2 minutes for the tablets to disintegra te. Stir before giving to prepare slurry and administer . Please exclude patient's with feeding tube less than 14 [place] (Dobhoff, J-tube, etc) and pediatric and patients. potassium 2022-0 No /= 14 Memoria chloride 7-21 [place], l 05:55: may [place] 00 dissolve each 20 mEq tablet in 4 oz of water. Allow about 2 minutes for the tablets to disintegra te. Stir before giving to prepare slurry and administer . Please exclude patient's with feeding tube less than 14 [place] (Dobhoff, J-tube, etc) and pediatric and patients. potassium 2022-0 No /= 14 Memoria chloride 7-21 [place], l 05:55: may [place] 00 dissolve each 20 mEq tablet in 4 oz of water. Allow about 2 minutes for the tablets to disintegra te. Stir before giving to prepare slurry and administer . Please exclude patient's with feeding tube less than 14 [place] (Dobhoff, J-tube, etc) and pediatric and patients. potassium 2022-0 No /= 14 Memoria chloride 7-21 [place], l 05:55: may Dav 00 dissolve each 20 mEq tablet in 4 oz of water. Allow about 2 minutes for the tablets to disintegra te. Stir before giving to prepare slurry and administer . Please exclude patient's with feeding tube less than 14 [place] (Dobhoff, J-tube, etc) and pediatric and patients. [...] day, # 21 cap, 0 Refill(s) ibuprofen 2022-0 Yes 600 mg = 1 Me moria 600 mg oral 7-16 tab, PO, l tablet 03:27: Q6H, PRN Dav 00 Pain or Fever, Take with food, X 10 day, # 40 tab, 0 Refill(s) ibuprofen 2022-0 Yes 600 mg = 1 Me moria 600 mg oral 7-16 tab, PO, l tablet 03:27: Q6H, PRN [place] 00 Pain or Fever, Take with food, X 10 day, # 40 tab, 0 Refill(s) ibuprofen 2022-0 Yes 600 mg = 1 Me moria 600 mg oral 7-16 tab, PO, l tablet 03:27: Q6H, PRN [place] 00 Pain or Fever, Take with food, X 10 day, # 40 tab, 0 Refill(s) ibuprofen 2022-0 Yes 600 mg = 1 Me moria 600 mg oral 7-16 tab, PO, l tablet 03:27: Q6H, PRN Dav 00 Pain or Fever, Take with food, X 10 day, # 40 tab, 0 Refill(s) ibuprofen 2022-0 Yes 600 mg = 1 Me moria 600 mg oral 7-16 tab, PO, l tablet 03:27: Q6H, PRN [place] 00 Pain or Fever, Take with food, X 10 day, # 40 tab, 0 Refill(s) ibuprofen 2022-0 Yes 600 mg = 1 Me moria 600 mg oral 7-16 tab, PO, l tablet 03:27: Q6H, PRN [place] 00 Pain or Fever, Take with food, X 10 day, # 40 tab, 0 Refill(s) ibuprofen Yes 600 mg = 1 Me moria 600 mg oral 7-16 tab, PO, l tablet 03:27: Q6H, PRN [place] 00 Pain or Fever, Take with food, [...] tab, PO, l tablet 03:27: Q6H, PRN [place] 00 Pain or Fever, Take with food, [...] vane 7-16 acetaminop l 00:44: hen 4000 [place] 00 mg/day (4 gm/day). (Same as: Tylenol Extra Strength) Tylenol No Notes: Max Henok vane 7-16 acetaminop l 00:44: hen 4000 [place] 00 mg/day (4 gm/day). (Same as: Tylenol Extra Strength) Tylenol 0 No Notes: Max Henok vane 7-16 acetaminop l 00:44: hen 4000 [place] 00 mg/day (4 gm/day). (Same as: Tylenol Extra Strength) Tylenol No Notes: Max Henok vane 7-16 acetaminop l 00:44: hen 4000 Dav 00 mg/day (4 gm/day). (Same as: Tylenol Extra Strength) Tylenol 2021-0 No Notes: Max Henok vane 7-16 acetaminop l 00:44: hen 4000 [place] 00 mg/day (4 gm/day). (Same as: Tylenol Extra Strength) Tylenol 2021-0 No Notes: Max Henok vane 7-16 acetaminop l 00:44: hen 4000 [place] 00 mg/day (4 gm/day). (Same as: Tylenol [...] times a l day. insulin 2021-0 Yes [id number] Inject Me thodi ASPART 5-[id number] (NovoLOG) 10:40: 3D skin [...] nightly. l injection (vial) insulin 2021-0 Yes [id number] Inject Me thodi ASPART 5-[id number] (NovoLOG) 10:40: 3D skin [...] nightly. l injection (vial) insulin 2021-0 Yes [id number] Inject Me thodi ASPART 5-[id number] (NovoLOG) 10:40: 3D skin [...] nightly. l injection (vial) insulin 2021-0 Yes [id number] Inject Me thodi ASPART 5-[id number] (NovoLOG) 10:40: 3D skin [...] nightly. l injection (vial) insulin 2021-0 Yes Q.[id number] Inject Me thodi ASPART 5-[id number] (NovoLOG) 10:40: 3D skin [...] nightly. l injection (vial) insulin 2021-0 Yes Q.[id number] Inject Me thodi ASPART 5-[id number] (NovoLOG) 10:40: 3D skin [...] nightly. l injection (vial) insulin 2021-0 Yes [id number] Inject Me thodi ASPART 5-[id number] (NovoLOG) 10:40: 3D skin [...] swelling) for up to 20 doses. Reglan 0 No Notes: Memoria -22 (Same as: l 00:00: Reglan) Reglan 0 No Notes: Memoria 1-22 (Same as: l 00:00: Reglan) [place] 00 Reglan No Notes: Memoria 1-22 (Same as: l 00:00: Reglan) Dav Reglan No Notes: Memoria 1-22 (Same as: l 00:00: Reglan) Dav Reglan No Notes: Memoria 1-22 (Same as: l 00:00: Reglan) Dav Reglan No Notes: Memoria 1-22 (Same as: l 00:00: Reglan) [place] Reglan No Notes: Memoria 1-22 (Same as: l 00:00: Reglan) Dav Reglan No Notes: Memoria 1-22 (Same as: l 00:00: Reglan) Dav Reglan No Notes: Memoria 1-22 (Same as: l 00:00: Reglan) [place] 00 Sodium 2015-0 No 1,000 mL, Memori a Chloride 1-21 [...] 1-21 Rate: 25 l 0.154 18:06: ml/hr, [place] MEQ/ML 00 Infuse Injectable over: 40 Solution [...] 1-21 tab, PO, l oral 17:08: Before [place] enteric 00 Dinner, # coated 30 tab, [...] 1-21 tab, PO, l oral 17:08: Before [place] enteric 00 Dinner, # coated 30 tab, [...] 1-21 tab, PO, l oral 17:08: Before [place] enteric 00 Dinner, # coated 30 tab, [...] tab, PO, l Tablet 17:08: Daily, # 30 tab, 0 Refill(s) thiamine 2016-0 Yes [...] 1-21 tab, PO, l oral 17:08: Before [place] enteric 00 Dinner, # coated 30 tab, [...] tab, PO, l Tablet 17:08: Daily, # [place] 00 30 tab, 0 Refill(s) thiamine 2016-0 Yes 100 mg = 1 Mem oria 100 mg oral 1-21 tab, PO, l tablet 17:08: Daily, X 14 day, # 14 tab, 0 Refill(s) pantoprazol 2016-0 Yes 40 mg = 1 M emoria e 40 mg 1-21 tab, PO, l oral 17:08: Before Dav enteric Dinner, # coated 30 tab, 0 tablet [...] tab, PO, l Tablet 17:08: Daily, # [place] 00 30 tab, 0 Refill(s) thiamine 2016-0 Yes 100 mg = 1 Mem oria 100 mg oral 1-21 tab, PO, l tablet 17:08: Daily, X 14 day, # 14 tab, 0 Refill(s) pantoprazol 2016-0 Yes 40 mg = 1 M emoria e 40 mg 1-21 tab, PO, l oral 17:08: Before [place] enteric 00 Dinner, # coated 30 tab, 0 tablet Refill(s) Promethazin 2016-0 Yes 12.5 mg = M emoria e 1-21 1 tab, PO, l Hydrochlori 17:08: Q6H, PRN He rmann de 12.5 MG 00 Nausea & Oral Tablet Vomiting, [Phenergan] X 7 day, # 28 tab, 0 Refill(s) Folic Acid 2015-0 Yes 1 mg = 1 Mem oria 1 MG Oral 1-21 tab, PO, l Tablet 17:08: Daily, # 30 tab, 0 Refill(s) thiamine 2016-0 Yes [...] PO, l Hydrochlori 17:08: Q6H, PRN He ann de 12.5 MG 00 Nausea & Oral Tablet Vomiting, [Phenergan] X 7 day, # 28 tab, 0 Refill(s) Folic Acid 2015-0 Yes 1 mg = 1 Mem oria 1 MG Oral 1-21 tab, PO, l Tablet 17:08: Daily, # 30 tab, 0 Refill(s) thiamine 2016-0 Yes [...] tab, PO, l Tablet 17:08: Daily, # [place] 00 30 tab, 0 Refill(s) Melatonin 2015-0 No 1 mg, Memoria 1-21 [...] 10/17/15 21:00:00 Lamictal 2015-0 No Notes: Memoria 1- (Same l 03:00: as:LaMICta Dav 00 l) Strattera 2015-0 No 80 mg, Memori a 1-21 Route: PO, l 03:00: Drug form: [place] 00 CAP, Bedtime, Dosing Weight 160.909, kg, Start date: 09/18/15 21:00:00, Duration: 30 day, Stop date: 10/17/15 21:00:00 Melatonin 2015-0 No 1 mg, Memoria 1-21 Route: PO, l 03:00: Drug form: [place] 00 TAB, Bedtime, Dosing Weight 160.909, kg, Start date: 09/18/15 21:00:00, Duration: 30 day, Stop date: 10/17/15 21:00:00 Lamictal 2016-0 No Notes: Memoria 1-21 (Same l 03:00: as:LaMICta [place] 00 l) Strattera 2015-0 No 80 mg, [...] Notes: Memoria 1-21 (Same l 03:00: as:LaMICta [place] 00 l) Strattera 2015-0 No 80 mg, Memori a 1-21 Route: PO, l 03:00: Drug form: Dav 00 CAP, Bedtime, Dosing Weight 160.909, kg, Start date: 09/18/15 21:00:00, Duration: 30 day, Stop date: 10/17/15 21:00:00 Melatonin 2016-0 No 1 mg, Memoria 1-21 Route: PO, l 03:00: Drug form: [place] 00 TAB, Bedtime, Dosing Weight 160.909, kg, [...] 1 Route: PO, l 03:00: Drug form: [place] 00 TAB, Bedtime, Dosing Weight 160.909, kg, [...] 1 Route: PO, l 03:00: Drug form: [place] 00 TAB, Bedtime, Dosing Weight 160.909, kg, Start date: 09/18/15 21:00:00, Duration: 30 day, Stop date: 10/17/15 21:00:00 Lamictal 2016-0 No Notes: Memoria 1-21 (Same l 03:00: as:LaMICta [place] 00 l) Strattera 2015-0 No 80 mg, Memori a 1-21 Route: PO, l 03:00: Drug form: [place] 00 CAP, Bedtime, Dosing Weight 160.909, kg, Start date: 09/18/15 21:00:00, Duration: 30 day, Stop date: 10/17/15 21:00:00 Melatonin 2015-0 No 1 mg, Memoria 121 Route: PO, l 03:00: Drug form: Dav 00 TAB, Bedtime, Dosing Weight 160.909, kg, Start date: 09/18/15 21:00:00, Duration: 30 day, Stop date: 10/17/15 21:00:00 Lamictal 2015-0 No Notes: Memoria 1-21 (Same l 03:00: as:LaMICta Dav 00 l) Strattera No 80 mg, Memori a 1-21 Route: PO, l 03:00: Drug form: [place] 00 CAP, Bedtime, Dosing Weight 160.909, kg, Start date: 09/18/15 21:00:00, Duration: 30 day, Stop date: 10/17/15 21:00:00 Protonix 2015- No Notes: Memoria 1-20 Tablet l 22:30: should not Dav 00 be chewed or crushed. (Same as: Protonix) Protonix 0 No Notes: Memoria 1-20 Tablet l 22:30: should not [place] 00 be chewed or crushed. (Same as: Protonix) Protonix 2015-0 No Notes: Memoria 1-20 Tablet l 22:30: should not Dav 00 be chewed or crushed. (Same as: Protonix) Protonix 0 No Notes: Memoria 1-20 Tablet l 22:30: should not Dav 00 be chewed or crushed. (Same as: Protonix) Protonix 0 No Notes: Memoria 1-20 Tablet l 22:30: should not Dav 00 be chewed or crushed. (Same as: Protonix) Protonix 2015-0 No Notes: Memoria 1-20 Tablet l 22:30: should not Dav 00 be chewed or crushed. (Same as: Protonix) Protonix 2015-0 No Notes: Memoria 1-20 Tablet l 22:30: should not [place] 00 be chewed or crushed. (Same as: Protonix) Protonix 2015-0 No Notes: Memoria 1-20 Tablet l 22:30: should not Dav 00 be chewed or crushed. (Same as: Protonix) Protonix 2015-0 No Notes: Memoria 1-20 Tablet l 22:30: should not [place] 00 be chewed or crushed. (Same as: [...] Memoria 1-20 (Same As: l 20:00: Vitamin [place] 00 B1) Thiamine No Notes: Memoria 1-20 (Same As: l 20:00: Vitamin [place] 00 B1) Thiamine No Notes: Memoria 1-20 (Same As: l 20:00: Vitamin Dav 00 B1) Folic Acid No Notes: Memor ia 1-20 (Same as: l 19:00: Folvite) Dav 00 Folic Acid No Notes: Memor ia 1-20 (Same as: l 19:00: Folvite) [place] 00 Folic Acid No Notes: Memor ia 1-20 (Same as: l 19:00: Folvite) Dav 00 Folic Acid No Notes: Memor ia 1-20 (Same as: l 19:00: Folvite) Dav 00 Folic Acid 0 No Notes: Memor ia 1-20 (Same as: l 19:00: Folvite) [place] 00 Folic Acid 0 No Notes: Memor ia 1-20 (Same as: l 19:00: Folvite) [place] 00 Folic Acid 0 No Notes: Memor ia 1-20 (Same as: l 19:00: Folvite) Dav 00 Folic Acid 0 No Notes: Memor ia 1-20 (Same as: l 19:00: Folvite) [place] 00 Folic Acid 0 No Notes: Memor ia 1-20 (Same as: l 19:00: Folvite) [place] 00 normal 2016-0 No 1,000 mL, Memori a [...] Memoria 1-20 (Same as: l 15:00: Lovenox) [place] hydrochloro No Notes: Henok vane thiazide 25 [...] Memoria 1-20 (Same as: l 15:00: Prinivil, [place] 00 Zestril) Lovenox 2015-0 No Notes: Memoria 1-20 (Same as: l 15:00: Lovenox) [place] 00 hydrochloro 2015-0 No Notes: Henok vane thiazide 25 1-20 (Same as: l mg oral 15:00: Hydrodiuri Herm kailash tablet 00 l) With food. Prilosec 2015-0 No 40 mg, Memoria 1-20 Route: PO, l 15:00: Drug form: [place] 00 DRC, Daily, Dosing Weight 160.909, kg, Start date: 09/18/15 9:00:00, Duration: 30 day, Stop date: 10/17/15 9:00:00 multivitami 2016-0 No 2 tab, Henok vane n 1-20 Route: l 15:00: CHEW, Dav 00 Dosing Weight 160.909, kg, BID, Start date: 09/18/15 9:00:00, Duration: 30 day, Stop date: 10/17/15 17:00:00 Hydrochloro 2016-0 No 1 tab, [place] vane thiazide 25 1-20 Route: PO, l MG / 15:00: Drug Form: [place] Lisinopril 00 TAB, 20 MG Oral Dosing Tablet Weight 160.909, kg, Daily, Start date: 09/18/15 9:00:00, Duration: 30 day, Stop date: 10/17/15 9:00:00 Prinivil No Notes: Memoria 1-20 (Same as: l 15:00: Prinivil, [place] 00 Zestril) Lovenox No Notes: Memoria 1-20 [...] PO, l MG / 15:00: Drug Form: [place] Lisinopril 00 TAB, 20 MG Oral Dosing [...] 1-20 Route: PO, l 15:00: Drug form: [place] 00 DRC, Daily, Dosing Weight 160.909, kg, [...] PO, l MG / 15:00: Drug Form: [place] Lisinopril 00 TAB, 20 MG Oral Dosing Tablet Weight 160.909, kg, Daily, Start date: 09/18/15 9:00:00, Duration: 30 day, Stop date: 10/17/15 9:00:00 Prinivil 2015-0 No Notes: Memoria 1-20 (Same as: l 15:00: Prinivil, [place] 00 Zestril) Lovenox 2015-0 No Notes: Memoria 1-20 (Same as: l 15:00: Lovenox) [place] 00 hydrochloro 2015-0 No Notes: Henok vane [...] vane n 1-20 Route: l 15:00: CHEW, [place] 00 Dosing Weight 160.909, kg, BID, Start date: 09/18/15 9:00:00, Duration: 30 day, Stop date: 10/17/15 17:00:00 Hydrochloro 2015-0 No 1 tab, Henok vane thiazide 25 1-20 Route: PO, l MG / 15:00: Drug Form: [place] Lisinopril 00 TAB, 20 MG Oral Dosing Tablet Weight 160.909, kg, Daily, Start date: 09/18/15 9:00:00, Duration: 30 day, Stop date: 10/17/15 9:00:00 Prinivil No Notes: Memoria 1-20 (Same as: l 15:00: Prinivil, [place] 00 Zestril) Lovenox 0 No Notes: Memoria 1-20 (Same as: l 15:00: Lovenox) Dav 00 hydrochloro No Notes: Henok vane thiazide [...] vane n 1-20 Route: l 15:00: CHEW, [place] 00 Dosing Weight 160.909, kg, BID, Start date: 09/18/15 9:00:00, Duration: 30 day, Stop date: 10/17/15 17:00:00 Hydrochloro 2015-0 No 1 tab, Henok vane thiazide 25 1-20 Route: PO, l MG / 15:00: Drug Form: [place] Lisinopril 00 TAB, 20 MG Oral Dosing Tablet Weight 160.909, kg, Daily, Start date: 09/18/15 9:00:00, Duration: 30 day, Stop date: 10/17/15 9:00:00 Prinivil 0 No Notes: Memoria 1-20 (Same as: l 15:00: Prinivil, Dav 00 Zestril) Lovenox 2015-0 No Notes: Memoria 1-20 (Same as: l 15:00: Lovenox) Dav 00 hydrochloro No Notes: Henok vane thiazide [...] as: l 15:00: Prinivil, Dav Zestril) Lovenox 0 No Notes: Memoria 1-20 (Same as: l 15:00: Lovenox) hydrochloro 0 No Notes: Henok vane thiazide 25 1-20 (Same as: l mg oral 15:00: Hydrodiuri Herm kailash tablet 00 l) With food. Prilosec 0 No 40 mg, Memoria 1-20 Route: PO, l 15:00: Drug form: [place] 00 DRC, Daily, Dosing Weight 160.909, kg, Start date: 09/18/15 9:00:00, Duration: 30 day, Stop date: 10/17/15 9:00:00 multivitami 2016-0 No 2 tab, Henok vane n 1-20 Route: l 15:00: CHEW, [place] 00 Dosing Weight 160.909, kg, BID, Start [...] Memoria 1-20 (Same as: l 15:00: Prinivil, [place] 00 Zestril) Lovenox 2015-0 No Notes: Memoria 1-20 (Same as: l 15:00: Lovenox) Dav 00 hydrochloro 2015-0 No Notes: Henok vane thiazide 25 1-20 (Same as: l mg oral 15:00: Hydrodiuri Herm kailash tablet 00 l) With food. Prilosec No 40 mg, Memoria 1-20 Route: PO, l 15:00: Drug form: [place] 00 DRC, Daily, Dosing Weight 160.909, kg, Start date: 09/18/15 9:00:00, Duration: 30 day, Stop date: 10/17/15 9:00:00 multivitami 2015-0 No 2 tab, Henok vane n 1-20 Route: l 15:00: CHEW, [place] 00 Dosing Weight 160.909, kg, BID, Start date: 09/18/15 9:00:00, Duration: 30 day, Stop date: 10/17/15 17:00:00 Hydrochloro 2015-0 No 1 tab, Henok vane thiazide 25 1-20 Route: PO, l MG / 15:00: Drug Form: [place] Lisinopril 00 TAB, 20 MG Oral Dosing Tablet Weight 160.909, kg, Daily, Start date: 09/18/15 9:00:00, Duration: 30 day, Stop date: 10/17/15 9:00:00 *Remind pt No *Remind pt Corey victoria to bring 1-20 to bring l home med 06:00: home med Brigida nn melatonin 1 00 melatonin mg and 1 mg and multivitami multivitam n in, Reminder, Drug form: MISC, Route: MISCANASTASIYAHIFT, 09/18/15 0:00:00, Duration: 30 day, Stop date: 10/17/15 16:00:00 *Remind pt 2016-0 No *Remind pt M emoria to bring 1-20 to bring l home med 06:00: home med Brigida nn melatonin 1 00 melatonin mg and 1 mg and multivitami multivitam n in, Reminder, Drug form: MISC, Route: MISCANASTASIYAHIFT, 09/18/15 0:00:00, Duration: 30 day, Stop date: 10/17/15 16:00:00 *Remind pt 2016-0 No *Remind pt M emoria to bring 1-20 to bring l home med 06:00: home med Brigida nn melatonin 1 00 melatonin mg and 1 mg and multivitami multivitam n in, Reminder, Drug form: MISC, Route: MISCANASTASIYAHIFT, 09/18/15 0:00:00, Duration: 30 day, Stop date: 10/17/15 16:00:00 *Remind pt 2016-0 No *Remind pt M emoria to bring 1-20 to bring l home med 06:00: home med Brigida nn melatonin 1 00 melatonin mg and 1 mg and multivitami multivitam n in, Reminder, Drug form: MISC, Route: MISCANASTASIYAHIFT, 09/18/15 0:00:00, Duration: 30 day, Stop date: 10/17/15 16:00:00 *Remind pt 2016-0 No *Remind pt M emoria to bring 1-20 to bring l home med 06:00: home med Brigida nn melatonin 1 00 melatonin mg and 1 mg and multivitami multivitam n in, Reminder, Drug form: MISC, Route: MISCANASTASIYAHIFT, 09/18/15 0:00:00, Duration: 30 day, Stop date: [...] 30 day, Stop date: 10/17/15 16:00:00 Bupropion 2015-0 No Notes: Memori a 1-20 (Same as: l 05:00: Wellbutrin [place] 00 XL) "Do Not Crush" Bupropion 2015-0 No Notes: Memori a 1-20 (Same as: l 05:00: Wellbutrin [place] 00 XL) "Do Not Crush" Bupropion 2015-0 No Notes: Memori a 1-20 (Same as: l 05:00: Wellbutrin [place] 00 XL) "Do Not Crush" Bupropion 2015-0 No Notes: Memori a 1-20 (Same as: l 05:00: Wellbutrin [place] 00 XL) "Do Not Crush" Bupropion 2016-0 No Notes: Memori a 1-20 [...] a 1-20 (Same as: l 05:00: Wellbutrin [place] 00 XL) "Do Not Crush" Reglan No Notes: Memoria 1-20 (Same as: l 04:26: Reglan) Dav Acetaminoph No Notes: Do M emoria en 1-20 not exceed l 04:26: 4 gm/day. [place] 00 (Same as: Tylenol) Ondansetron No Notes: Henok vane 1-20 (Same as: l 04:26: Zofran) Dav 00 MEDICATION WASTE Product Size: 4 mg Product Wasted: ___ mg Morphine No Notes: Memoria 1-20 (Same l 04:26: as:MORPhin [place] 00 e Sulfate) Phenergan No Notes: Do Mem oria 1-20 not give l 04:26: IV push. [place] 00 (Same as: Phenergan) Reglan No Notes: Memoria 1-20 (Same as: l 04:26: Reglan) [place] 00 Acetaminoph No Notes: Do M emoria [...] vane 1-20 (Same as: l 04:26: Zofran) Adv 00 MEDICATION WASTE Product Size: 4 mg Product Wasted: ___ mg Morphine No Notes: Memoria 1-20 (Same l 04:26: as:MORPhin [place] 00 e Sulfate) Phenergan No Notes: Do Mem oria 1-20 not give l 04:26: IV push. [place] 00 (Same as: Phenergan) Reglan No Notes: [...] Notes: Memoria 1-20 (Same l 04:26: as:MORPhin [place] 00 e Sulfate) Phenergan No Notes: Do Mem oria 1-20 not give l 04:26: IV push. [place] 00 (Same as: Phenergan) Reglan No Notes: Memoria 1-20 (Same as: l 04:26: Reglan) Dav 00 Acetaminoph No Notes: Do M emoria en 1-20 not exceed l 04:26: 4 gm/day. Dav 00 (Same as: Tylenol) Ondansetron No Notes: Henok vane 1-20 (Same as: l 04:26: Zofran) [place] 00 MEDICATION WASTE Product Size: 4 mg Product Wasted: ___ mg Morphine No Notes: Memoria 1-20 (Same l 04:26: as:MORPhin [place] 00 e Sulfate) Phenergan No Notes: Do Mem oria 1-20 not give l 04:26: IV push. Dav 00 (Same as: Phenergan) Reglan No Notes: Memoria 1-20 (Same as: l 04:26: Reglan) Dav 00 Acetaminoph No Notes: Do M emoria en 1-20 not exceed l 04:26: 4 gm/day. [place] 00 (Same as: Tylenol) Ondansetron No Notes: Henok vane 1-20 (Same as: l 04:26: Zofran) [place] 00 MEDICATION WASTE Product Size: 4 mg Product Wasted: ___ mg Morphine No Notes: Memoria 1-20 (Same l 04:26: as:MORPhin [place] 00 e Sulfate) Phenergan No Notes: Do Mem oria 1-20 not give l 04:26: IV push. Dav 00 (Same as: Phenergan) Reglan No Notes: Memoria 1-20 (Same as: l 04:26: Reglan) [place] 00 Acetaminoph No Notes: Do M emoria en 1-20 not exceed l 04:26: 4 gm/day. Dav 00 (Same as: Tylenol) Ondansetron No Notes: Henok vane 1-20 (Same as: l 04:26: Zofran) [place] 00 MEDICATION WASTE Product Size: 4 mg Product Wasted: ___ mg Morphine No Notes: Memoria 1-20 (Same l 04:26: as:MORPhin [place] 00 e Sulfate) Phenergan No Notes: Do Mem oria 1-20 not give l 04:26: IV push. Dav 00 (Same as: Phenergan) Reglan No Notes: Memoria 1-20 (Same as: l 04:26: Reglan) [place] 00 Acetaminoph No Notes: Do M emoria en 1-20 not exceed l 04:26: 4 gm/day. Dav 00 (Same as: Tylenol) Ondansetron No Notes: Henok vane 1-20 (Same as: l 04:26: Zofran) Dav 00 MEDICATION WASTE Product Size: 4 mg Product Wasted: ___ mg Morphine No Notes: Memoria 1-20 (Same l 04:26: as:MORPhin [place] 00 e Sulfate) Phenergan No Notes: Do Mem oria 1-20 not give l 04:26: IV push. [place] 00 (Same as: Phenergan) Reglan No Notes: Memoria 1-20 (Same as: l 04:26: Reglan) Dav 00 Acetaminoph No Notes: Do M emoria en 1-20 not exceed l 04:26: 4 gm/day. [place] 00 (Same as: Tylenol) Ondansetron No Notes: [...] ia 1-20 (Same as: l 04:25: Zofran [place] 00 ODT) Zofran ODT No Notes: Memor ia 1-20 (Same as: l 04:25: Zofran [place] 00 ODT) Zofran ODT No Notes: Memor ia 1-20 (Same as: l 04:25: Zofran [place] 00 ODT) Zofran ODT 0 No Notes: Memor ia 1-20 (Same as: l 04:25: Zofran [place] 00 ODT) Zofran ODT 0 No Notes: Memor ia 1-20 (Same as: l 04:25: Zofran [place] 00 ODT) Zofran ODT 0 No Notes: Memor ia 1-20 (Same as: l 04:25: Zofran [place] 00 ODT) Zofran ODT 0 No Notes: Memor ia 1-20 (Same as: l 04:25: Zofran [place] 00 ODT) Zofran ODT 0 No Notes: Memor ia 1-20 (Same as: l 04:25: Zofran [place] 00 ODT) Metoclopram 0 No Notes: Henok vane john 10 MG 1-20 (Same as: l Oral Tablet 04:24: Reglan) Her blanca [Reglan] 00 Take 30 min before meals Metoclopram 0 No Notes: Henok vane john 10 MG [...] Take 30 min before meals 200 ACTUAT 2015-0 No Notes: Memor ia Albuterol 1-20 Same as: l 0.09 04:23: Ventolin Dav MG/ACTUAT 00 HFA Metered Dose Inhaler [Proventil] 200 ACTUAT 0 No Notes: Memor ia Albuterol 1-20 Same as: l 0.09 04:23: Ventolin [place] MG/ACTUAT 00 HFA Metered Dose Inhaler [Proventil] [...] 1-20 Same as: l 0.09 04:23: Ventolin [place] MG/ACTUAT 00 HFA Metered Dose Inhaler [Proventil] 200 ACTUAT 0 No Notes: Memor ia Albuterol 1-20 Same as: l 0.09 04:23: Ventolin [place] MG/ACTUAT 00 HFA Metered Dose Inhaler [Proventil] 200 ACTUAT 0 No Notes: Memor ia Albuterol 1-20 Same as: l 0.09 04:23: Ventolin [place] MG/ACTUAT 00 HFA Metered Dose Inhaler [Proventil] [...] n 1mg l own 04:19: -Pt's own [place] medication* 00 medication * , 1 mg, 1 tab, Drug form: MISC, Route: PO, ONCE, 09/17/15 22:19:00, Stop date: 09/17/15 22:19:00 Melatonin No Melatoni Memoria 1mg -Pt's 1-20 n 1mg l own 04:19: -Pt's own [place] medication* 00 medication * , 1 mg, 1 tab, Drug form: MISC, Route: PO, ONCE, 09/17/15 22:19:00, Stop date: 09/17/15 22:19:00 Melatonin No Melatoni Memoria 1mg -Pt's 1-20 n 1mg l own 04:19: -Pt's own [place] medication* 00 medication * , 1 mg, 1 tab, Drug form: MISC, Route: PO, ONCE, 09/17/15 22:19:00, Stop date: 09/17/15 22:19:00 Melatonin No Melatoni Memoria 1mg -Pt's 1-20 n 1mg l own 04:19: -Pt's own [place] medication* 00 medication * , 1 mg, 1 tab, Drug form: MISC, Route: PO, ONCE, 09/17/15 22:19:00, Stop date: 09/17/15 22:19:00 Melatonin No Melatoni Memoria 1mg -Pt's 1-20 n 1mg l own 04:19: -Pt's own [place] medication* 00 medication * , 1 mg, 1 tab, Drug form: MISC, Route: PO, ONCE, 09/17/15 22:19:00, Stop date: 09/17/15 22:19:00 Melatonin 2015- No Melatoni Memoria 1mg -Pt's 1-20 n 1mg l own 04:19: -Pt's own [place] medication* 00 medication * , 1 mg, 1 tab, Drug form: MISC, Route: PO, ONCE, 09/17/15 22:19:00, Stop date: 09/17/15 22:19:00 Melatonin 2015-0 No Melatoni Memoria 1mg -Pt's 1-20 n 1mg l own 04:19: -Pt's own [place] medication* 00 medication * , 1 mg, [...] a 1-20 Route: PO, l 04:12: ONCE, [place] 00 Dosing Weight 160.909, kg, Start date: 09/17/15 22:12:00, Stop date: 09/17/15 22:12:00 Strattera 2016-0 No 80 mg, Memori a 1-20 Route: PO, l 04:12: ONCE, [place] 00 Dosing Weight 160.909, kg, Start date: 09/17/15 22:12:00, Stop date: 09/17/15 22:12:00 Strattera 2016-0 No 80 mg, Memori a 1-20 Route: PO, l 04:12: ONCE, [place] 00 Dosing Weight 160.909, kg, Start date: 09/17/15 22:12:00, Stop date: 09/17/15 22:12:00 Strattera 2016-0 No 80 mg, Memori a 1-20 Route: PO, l 04:12: ONCE, [place] 00 Dosing Weight 160.909, kg, Start date: 09/17/15 22:12:00, Stop date: 09/17/15 22:12:00 Strattera 2016-0 No 80 mg, Memori a 1-20 Route: PO, l 04:12: ONCE, [place] 00 Dosing Weight 160.909, kg, Start date: 09/17/15 22:12:00, Stop date: 09/17/15 22:12:00 Strattera 2016-0 No 80 mg, Memori a 1-20 Route: PO, l 04:12: ONCE, [place] 00 Dosing Weight 160.909, kg, Start date: [...] l Tablet 04:11: as:LaMICta Brigida nn l) 200 ACTUAT Yes 2 puff, Henok vane Albuterol 1-20 INHALATION l 0.09 04:10: , QID, PRN [place] MG/ACTUAT 00 as needed Metered for Dose [...] INHALATION l 0.09 04:10: , QID, PRN [place] MG/ACTUAT 00 as needed Metered for Dose wheezing, Inhaler 0 [Proventil] Refill(s) 200 ACTUAT Yes 2 puff, Henok vane Albuterol 1-20 INHALATION l 0.09 04:10: , QID, PRN [place] MG/ACTUAT 00 as needed Metered for Dose wheezing, Inhaler 0 [Proventil] Refill(s) 200 ACTUAT Yes 2 puff, Henok vane Albuterol 1-20 INHALATION l 0.09 04:10: , QID, PRN [place] MG/ACTUAT 00 as needed Metered for Dose wheezing, Inhaler 0 [Proventil] Refill(s) 200 ACTUAT Yes 2 puff, Henok vane Albuterol 1-20 INHALATION l 0.09 04:10: , QID, PRN [place] MG/ACTUAT 00 as needed Metered for Dose wheezing, Inhaler 0 [Proventil] Refill(s) multivitami Yes 2 tab, Henok vane n 1-20 CHEW, BID, l 04:08: 0 [place] 00 Refill(s) multivitami Yes 2 tab, Henok vane n 1-20 CHEW, BID, l 04:08: 0 [place] 00 Refill(s) multivitami Yes 2 tab, Henok vane n 1-20 CHEW, BID, l 04:08: 0 [place] 00 Refill(s) multivitami Yes 2 tab, Henok [...] n 1-20 CHEW, BID, l 04:08: 0 [place] 00 Refill(s) multivitami 2016-0 Yes 2 tab, Henok vane n 1-20 CHEW, BID, l 04:08: 0 [place] 00 Refill(s) Ondansetron 20160 Yes 8 mg = 1 Me moria 8 MG 1-20 tab, PO, l Disintegrat 04:07: Q8H, PRN He rmann ing Tablet 00 as needed [Zofran] for nausea/vom iting, 0 Refill(s) Metoclopram 20160 Yes 10 mg = 1 M emoria john 10 MG 1-20 tab, PO, l Oral Tablet 04:07: Q6H, PRN He rmann [Reglan] 00 Nausea & Vomiting, 0 Refill(s) Ondansetron 20160 Yes 8 mg = 1 Me moria [...] Memoria 1-20 (Same as: l 03:49: Reglan) [place] 00 Reglan No Notes: Memoria 1-20 (Same as: l 03:49: Reglan) [place] 00 Reglan No Notes: Memoria 1-20 (Same as: l 03:49: Reglan) [place] Reglan No Notes: Memoria 1-20 (Same as: l 03:49: Reglan) [place] 00 Reglan No Notes: Memoria 1-20 (Same as: l 03:49: Reglan) [place] Reglan No Notes: Memoria 1-20 (Same as: l 03:49: Reglan) [place] Reglan No Notes: Memoria 1-20 (Same as: l 03:49: Reglan) Dav Reglan No Notes: Memoria 1-20 (Same as: l 03:49: Reglan) Dav Reglan No Notes: Memoria 1-20 (Same as: l 03:49: Reglan) Ondansetron No Notes: Henok vane 4 MG 1-20 (Same as: l Disintegrat 00:07: Zofran Herm kailash ing Tablet 00 ODT) Saline No Notes: Memoria Flush 0.9% 1-20 (Same as: l 00:07: BD [place] 00 Posiflush) Ondansetron No Notes: Henok vane [...] 0.9% 1-20 (Same as: l 00:07: BD [place] 00 Posiflush) Ondansetron No Notes: Henok vane [...] 0.9% 1-20 (Same as: l 00:07: BD [place] 00 Posiflush) Ondansetron No Notes: Henok vane 4 MG 1-20 (Same as: l Disintegrat 00:07: Zofran Herm kailash ing Tablet 00 ODT) Saline No Notes: Memoria Flush 0.9% 1-20 (Same as: l 00:07: BD [place] 00 Posiflush) Ondansetron No Notes: Henok vane [...] 0.9% 1-20 (Same as: l 00:07: BD [place] 00 Posiflush) Ondansetron 2014-08 No 4 mg = 1 Me moria 4 MG 2-28 tab, PO, l Disintegrat 22:06: TID, Garrett n ing Tablet 00 Dissolve [Zofran] tab under tongue, X 1 day, # 12 tab, 0 Refill(s) Acetaminoph 2014-08 Yes 11.25 mL, M emoria en 20 MG/ML 2-28 PO, Q6H, # l / 22:06: 60 mL, 0 [place] Hydrocodone 00 Refill(s) Bitartrate 0.667 MG/ML Oral [...] # l / 22:06: 60 mL, 0 [place] Hydrocodone 00 Refill(s) Bitartrate 0.667 MG/ML Oral [...] # l / 22:06: 60 mL, 0 [place] Hydrocodone 00 Refill(s) Bitartrate 0.667 MG/ML Oral [...] # l / 22:06: 60 mL, 0 [place] Hydrocodone 00 Refill(s) Bitartrate 0.667 MG/ML Oral [...] # l / 22:06: 60 mL, 0 [place] Hydrocodone 00 Refill(s) Bitartrate 0.667 MG/ML Oral [...] # l / 22:06: 60 mL, 0 [place] Hydrocodone 00 Refill(s) Bitartrate 0.667 MG/ML Oral [...] 08/26/15 14:44:00, Stop date: 08/26/15 14:44:00 ketOROLAC 2014-1 No 15 mg, Memori a 15 mg/mL [...] 08/26/15 14:44:00, Stop date: 08/26/15 14:44:00 ketOROLAC 2014-1 No 15 mg, Memori a 15 mg/mL 2-28 Route: l injectable 20:44: IVP, Drug He rmann solution 00 form: INJ, ONCE, Dosing Weight 162.273, kg, Priority: STAT, Start date: 08/26/15 14:44:00, Stop date: 08/26/15 14:44:00 ketOROLAC 2014-1 No 15 mg, Memori a 15 mg/mL [...] Memoria 2-28 Route: l 18:38: IVP, Drug [place] 00 form: INJ, ONCE, Dosing Weight 162.273, [...] Memoria 2-28 Route: l 18:38: IVP, Drug [place] 00 form: INJ, ONCE, Dosing Weight 162.273, kg, Priority: STAT, Start date: 08/26/15 12:38:00, Stop date: 08/26/15 12:38:00 Morphine 2014- No 6 mg, Memoria 2-28 Route: l 18:38: IVP, Drug [place] 00 form: INJ, ONCE, Dosing Weight 162.273, kg, Priority: STAT, Start date: 08/26/15 12:38:00, Stop date: 08/26/15 12:38:00 Zofran 2014- No 4 mg, Memoria 2-28 Route: l 18:37: IVP, Drug [place] 00 form: INJ, ONCE, Dosing Weight 162.273, kg, Priority: STAT, Start date: 08/26/15 12:37:00, Stop date: 08/26/15 12:37:00 Zofran 2014-08 No 4 mg, Memoria 2-28 Route: l 18:37: IVP, Drug [place] 00 form: INJ, ONCE, Dosing Weight 162.273, kg, Priority: STAT, Start date: 08/26/15 12:37:00, Stop date: 08/26/15 12:37:00 Zofran 2014- No 4 mg, Memoria 2-28 Route: l 18:37: IVP, Drug [place] 00 form: INJ, ONCE, Dosing Weight 162.273, kg, Priority: STAT, Start date: 08/26/15 12:37:00, Stop date: 08/26/15 12:37:00 Zofran 2014-08 No 4 mg, Memoria 2-28 Route: l 18:37: IVP, Drug [place] 00 form: INJ, ONCE, Dosing Weight 162.273, kg, Priority: STAT, Start date: 08/26/15 12:37:00, Stop date: 08/26/15 12:37:00 Zofran 2014-08 No 4 mg, Memoria 2-28 Route: l 18:37: IVP, Drug [place] 00 form: INJ, ONCE, Dosing Weight 162.273, kg, Priority: STAT, Start date: 08/26/15 12:37:00, Stop date: 08/26/15 12:37:00 Zofran 2014-1 No 4 mg, Memoria 2-28 Route: l 18:37: IVP, Drug [place] 00 form: INJ, ONCE, Dosing Weight 162.273, kg, Priority: STAT, Start date: 08/26/15 12:37:00, Stop date: 08/26/15 12:37:00 Zofran 2014- No 4 mg, Memoria 2-28 Route: l 18:37: IVP, Drug [place] 00 form: INJ, ONCE, Dosing Weight 162.273, kg, Priority: STAT, Start date: 08/26/15 12:37:00, Stop date: 08/26/15 12:37:00 Zofran 2014-1 No 4 mg, Memoria 2-28 Route: l 18:37: IVP, Drug [place] 00 form: INJ, ONCE, Dosing Weight 162.273, [...] Chloride 2-28 1,000 l 0.154 16:47: ml/hr, [place] MEQ/ML 00 Infuse Injectable Over: 1 Solution Hour, Route: IV, ONCE, Priority: STAT, Dosing Weight 162.273 kg, Start date: 08/26/15 10:47:00, Duration: 1 doses or times, Stop date: 08/26/15 10:47:00 Sodium 2014-1 No 1,000 mL, Memori a Chloride 2-28 1,000 l 0.154 16:47: ml/hr, [place] MEQ/ML 00 Infuse Injectable Over: 1 Solution Hour, Route: IV, ONCE, Priority: STAT, Dosing Weight 162.273 kg, Start date: 08/26/15 10:47:00, Duration: 1 doses or times, Stop date: 08/26/15 10:47:00 Sodium 2014- No 1,000 mL, Memori a Chloride 2-28 1,000 l 0.154 16:47: ml/hr, [place] MEQ/ML 00 Infuse Injectable Over: 1 Solution [...] Chloride 2-28 1,000 l 0.154 16:47: ml/hr, [place] MEQ/ML 00 Infuse Injectable Over: 1 Solution Hour, Route: IV, ONCE, Priority: STAT, Dosing Weight 162.273 kg, Start date: 08/26/15 10:47:00, Duration: 1 doses or times, Stop date: 08/26/15 10:47:00 Reglan 2014-08 No Notes: Memoria 2-19 (Same as: l 06:00: Reglan) [place] 00 Take 30 min before meals Reglan 2014-08 No Notes: Memoria 2-19 (Same as: l 06:00: Reglan) [place] 00 Take 30 min before meals Reglan 2014-08 No Notes: Memoria 2-19 (Same as: l 06:00: Reglan) [place] 00 Take 30 min before meals Reglan 2014-08 No Notes: Memoria 2-19 (Same as: l 06:00: Reglan) [place] 00 Take 30 min before meals Reglan 2014-08 No Notes: Memoria 2-19 (Same as: l 06:00: Reglan) [place] 00 Take 30 min before meals Reglan 2014-08 No Notes: Memoria 2-19 (Same as: l 06:00: Reglan) [place] 00 Take 30 min before meals Reglan 2014-08 No Notes: Memoria 2-19 (Same as: l 06:00: Reglan) [place] 00 Take 30 min before meals Reglan 2014-08 No Notes: Memoria 2-19 (Same as: l 06:00: Reglan) [place] 00 Take 30 min before meals Reglan 2014-08 No Notes: Memoria 2-19 (Same as: l 06:00: Reglan) [place] 00 Take 30 min before meals Pepcid 2014-08 No Notes: Memoria 2-19 (Same as: l 03:00: Pepcid) [place] 00 Pepcid 2014-08 No Notes: Memoria 2-19 (Same as: l 03:00: Pepcid) Dav 00 Pepcid 2014-08 No Notes: Memoria 2-19 (Same as: l 03:00: Pepcid) Dav Pepcid 2014-08 No Notes: Memoria 2-19 (Same as: l 03:00: Pepcid) [place] 00 Pepcid 2014-08 No Notes: Memoria 2-19 (Same as: l 03:00: Pepcid) [place] Pepcid 2014-08 No Notes: Memoria 2-19 (Same as: l 03:00: Pepcid) [place] 00 Pepcid 2014-08 No Notes: Memoria 2-19 (Same as: l 03:00: Pepcid) Dav Pepcid 2014-08 No Notes: Memoria 2-19 (Same as: l 03:00: Pepcid) [place] 00 Pepcid 2014-08 No Notes: Memoria 2-19 (Same as: l 03:00: Pepcid) [place] 00 Acetaminoph 2014-08 No Notes: Do M emoria en 20 MG/ML 2-18 not exceed l / 17:48: 4gm/day of [place] Hydrocodone 00 acetaminop Bitartrate hen. (Same 0.667 MG/ML as: Oral Zolvit) Solution Acetaminoph 2014-08 No Notes: Do M emoria en 20 MG/ML 2-18 not exceed l / 17:48: 4gm/day of [place] Hydrocodone 00 acetaminop Bitartrate hen. (Same 0.667 MG/ML as: Oral Zolvit) Solution Acetaminoph 2014-08 No Notes: Do M emoria en 20 MG/ML 2-18 not exceed l / 17:48: 4gm/day of [place] Hydrocodone 00 acetaminop Bitartrate hen. (Same 0.667 MG/ML as: Oral Zolvit) Solution Acetaminoph 2014-08 No Notes: Do M emoria en 20 MG/ML 2-18 not exceed l / 17:48: 4gm/day of Dav Hydrocodone 00 acetaminop Bitartrate hen. (Same 0.667 MG/ML as: Oral Zolvit) Solution Acetaminoph 2014-08 No Notes: Do M emoria en 20 MG/ML 2-18 not exceed l / 17:48: 4gm/day of [place] Hydrocodone 00 acetaminop Bitartrate hen. (Same 0.667 MG/ML as: Oral Zolvit) Solution Acetaminoph 2014-08 No Notes: Do M emoria en 20 MG/ML 2-18 not exceed l / 17:48: 4gm/day of Dav Hydrocodone 00 acetaminop Bitartrate hen. (Same 0.667 MG/ML as: Oral Zolvit) Solution Acetaminoph 2014-08 No Notes: Do M emoria en 20 MG/ML 2-18 not exceed l / 17:48: 4gm/day of [place] Hydrocodone 00 acetaminop Bitartrate hen. (Same 0.667 [...] PO, l MG / 15:00: Drug Form: [place] Lisinopril 00 TAB, 20 MG Oral Dosing Tablet Weight 168.636, kg, Daily, Start date: 08/16/15 9:00:00, Duration: 30 day, Stop date: 09/14/15 9:00:00 Wellbutrin 2014-08 No Notes: Memor ia 2-18 (Same As: l 15:00: Wellbutrin [place] 00 ) Prinivil 2014-08 No Notes: Memoria [...] PO, l MG / 15:00: Drug Form: [place] Lisinopril 00 TAB, 20 MG Oral Dosing Tablet Weight 168.636, kg, Daily, Start date: 08/16/15 9:00:00, Duration: 30 day, Stop date: 09/14/15 9:00:00 Wellbutrin 2014-08 No Notes: Memor ia 2-18 (Same As: l 15:00: Wellbutrin [place] 00 ) Prinivil 2014-08 No Notes: Memoria [...] PO, l MG / 15:00: Drug Form: [place] Lisinopril 00 TAB, 20 MG Oral Dosing Tablet Weight 168.636, kg, Daily, Start date: 08/16/15 9:00:00, Duration: 30 day, Stop date: 09/14/15 9:00:00 Wellbutrin 2014-08 No Notes: Memor ia 2-18 (Same As: l 15:00: Wellbutrin [place] 00 ) Prinivil 2014-08 No Notes: Memoria 2-18 (Same as: l 15:00: Prinivil, [place] 00 Zestril) hydrochloro 2014-08 No Notes: Henok vane thiazide 25 2-18 (Same as: l mg oral 15:00: Hydrodiuri Herm kailash tablet 00 l) With food. pneumococca 2014-08 No Notes: Henok vane l capsular 2-18 (Same as: l polysacchar 15:00: Pneumovax H ermann john type 1 23) vaccine / Refrigerat pneumococca e l capsular polysacchar jonh type 10A vaccine / pneumococca l capsular polysacchar john type 11A vaccine / pneumococca l capsular polysacchar john type 12F vaccine / pneumococca l capsular polysacchar Hydrochloro 2014-08 No 1 tab, Henok vane thiazide 25 2-18 Route: PO, l MG / 15:00: Drug Form: [place] Lisinopril 00 TAB, 20 MG Oral Dosing Tablet Weight 168.636, kg, Daily, Start date: 08/16/15 9:00:00, Duration: 30 day, Stop date: 09/14/15 9:00:00 Wellbutrin 2014-08 No Notes: Memor ia 2-18 (Same As: l 15:00: Wellbutrin Dav 00 ) Prinivil 2014-08 No Notes: Memoria 2-18 (Same as: l 15:00: Prinivil, [place] 00 Zestril) hydrochloro 2014-08 No Notes: Henok [...] As: l 15:00: Wellbutrin Dav 00 ) ivil 2014-08 No Notes: Memoria 2-18 (Same as: l 15:00: Prinivil, [place] 00 Zestril) hydrochloro 2014-08 No Notes: Henok [...] ia 2-18 (Same As: l 15:00: Wellbutrin [place] 00 ) Prinivil 2014-08 No Notes: Memoria 2-18 (Same as: l 15:00: Prinivil, [place] 00 Zestril) hydrochloro 2014-08 No Notes: Henok [...] PO, l MG / 15:00: Drug Form: [place] Lisinopril 00 TAB, 20 MG Oral Dosing Tablet Weight 168.636, kg, Daily, Start date: 08/16/15 9:00:00, Duration: 30 day, Stop date: 09/14/15 9:00:00 Reminder 2014-08 No Reminde Memlizzy to bring 2-18 r to bring l pt's own 06:00: pt's own Brigida nn med 00 med mu dobbins to pharmacy to pharmacy, 1, Drug form: MISC, Route: KEEGAN POSADA, 08/16/15 0:00:00, Duration: 30 day, Stop date: [...] ia 2-18 (Same as: l 05:00: Lovenox) [place] Enoxaparin 2014-08 No Notes: Memor ia 2-18 (Same as: l 05:00: Lovenox) Dav Enoxaparin 2014-08 No Notes: Memor ia 2-18 (Same as: l 05:00: Lovenox) [place] Enoxaparin 2014-08 No Notes: Memor ia 2-18 [...] Notes: Memoria 2-18 (Same l 03:00: as:LaMICta [place] 00 l) Strattera 2014-08 No 80 mg, [...] Notes: Memoria 2-18 (Same l 03:00: as:LaMICta [place] 00 l) Strattera 2014-08 No 80 mg, [...] Notes: Memoria 2-18 (Same l 03:00: as:LaMICta [place] 00 l) Strattera 2014-08 No 80 mg, [...] Notes: Memoria 2-18 (Same l 03:00: as:LaMICta [place] 00 l) Strattera 2014-08 No 80 mg, Memori a 2-18 Route: PO, l 03:00: Drug form: Dav 00 CAP, Bedtime, Dosing Weight 168.636, kg, Start date: 08/15/15 21:00:00, Duration: 30 day, Stop date: 09/13/15 21:00:00 Famotidine 2014-08 No Notes: Memor ia 2-18 (Same as: l 03:00: Pepcid) [place] 00 Can be dilute in 5-10cc NS IVP: Slow IV push over at least 2 minutes. Lamictal 2014-08 No Notes: Memoria 2-18 (Same l 03:00: as:LaMICta [place] 00 l) Strattera 2014-08 No 80 mg, Memori a 2-18 Route: PO, l 03:00: Drug form: [place] 00 CAP, Bedtime, Dosing Weight 168.636, kg, Start date: 08/15/15 21:00:00, Duration: 30 day, Stop date: 09/13/15 21:00:00 Famotidine 2014-08 No Notes: Memor ia 2-18 (Same as: l 03:00: Pepcid) [place] 00 Can be dilute in 5-10cc NS [...] ia 2-18 (Same as: l 03:00: Pepcid) [place] 00 Can be dilute in 5-10cc NS IVP: Slow IV push over at least 2 minutes. Lamictal 2014-08 No Notes: Memoria 2-18 (Same l 03:00: as:LaMICta Dav 00 l) Strattera 2014-08 No 80 mg, Memori a 2-18 Route: PO, l 03:00: Drug form: [place] 00 CAP, Bedtime, Dosing Weight 168.636, kg, [...] 2-17 Enteral l Oral 19:00: feeds may [place] Suspension 00 interfere [Carafate] with the absorption of this medication . Shake well. Take 1 hr before or 2 hrs after antacids, dairy pdt, minerals & meals. (Same As: Carafate) Sucralfate 2014-08 No Notes: Memor ia 100 MG/ML 2-17 Enteral l Oral 19:00: feeds may [place] Suspension 00 interfere [Carafate] with the absorption [...] 2-17 Enteral l Oral 19:00: feeds may [place] Suspension 00 interfere [Carafate] with the absorption of this medication . Shake well. Take 1 hr before or 2 hrs after antacids, dairy pdt, minerals & meals. (Same As: Carafate) Sucralfate 2014-08 No Notes: Memor ia 100 MG/ML 2-17 Enteral l Oral 19:00: feeds may [place] Suspension 00 interfere [Carafate] with the absorption [...] 2-17 Enteral l Oral 19:00: feeds may [place] Suspension 00 interfere [Carafate] with the absorption [...] 4 mg Product Wasted: ___ mg Ondansetron 2014- No Notes: Henok vane 2-17 (Same as: l 18:00: Zofran) Dav 00 MEDICATION WASTE Product Size: 4 mg Product Wasted: ___ mg Ondansetron 2014- No Notes: Henok vane 2-17 (Same as: l 18:00: Zofran) Dav 00 MEDICATION WASTE Product Size: 4 mg Product Wasted: ___ mg Ondansetron 2014- No Notes: Henok vane 2-17 (Same as: l 18:00: Zofran) Dav 00 MEDICATION WASTE Product Size: 4 mg Product Wasted: ___ mg Ondansetron 2014- No Notes: Henok vane 2-17 (Same as: l 18:00: Zofran) [place] 00 MEDICATION WASTE Product Size: 4 mg Product Wasted: ___ mg Ondansetron 2014- No Notes: Henok vane 2-17 (Same as: l 18:00: Zofran) [place] 00 MEDICATION WASTE Product Size: 4 mg Product Wasted: ___ mg Ondansetron 2014- No Notes: Henok vane 2-17 (Same as: l 18:00: Zofran) [place] 00 MEDICATION WASTE Product Size: 4 mg Product Wasted: ___ mg Ondansetron 2014-08 No Notes: Henok vane 2-17 (Same as: l 18:00: Zofran) [place] 00 MEDICATION WASTE Product Size: 4 mg Product Wasted: ___ mg Ondansetron 2014- No Notes: Henok vane 2-17 (Same as: l 18:00: Zofran) Dav 00 MEDICATION WASTE Product Size: 4 mg Product Wasted: ___ mg Hydromorpho 2014-08 No 0.5 mg, Mem oria ne 2-17 0.5 mL, l 16:34: Route: IV, [place] 00 Drug form: INJ, Q3H, Dosing Weight [...] 2-17 not exceed l 16:34: 4 gm/day. [place] 00 (Same as: Tylenol) Metoprolol 2014-08 No [...] 2-17 0.5 mL, l 16:34: Route: IV, [place] Drug form: INJ, Q3H, Dosing Weight 175.909, [...] mL 2-17 Rate: 125 l 16:34: ml/hr, 00 Infuse over: 8 hr, Route: IV, Dosing Weight 168.864 kg, Total Volume: 1,000, Start date: 08/15/15 10:34:00, Duration: 30 day, Stop date: 09/14/15 10:33:00 Promethazin 2014-08 No Notes: Henok vane e 2-17 (Same as: l 16:34: Phenergan) Acetaminoph 2014-08 No Notes: Do M emoria en 2-17 not exceed l 16:34: 4 gm/day. [place] 00 (Same as: Tylenol) Metoprolol 2014-08 No [...] 2-17 0.5 mL, l 16:34: Route: IV, [place] 00 Drug form: INJ, Q3H, Dosing Weight 175.909, kg, PRN Pain Score 7-10, Start date: 08/15/15 10:34:00, Duration: 30 day, Stop date: 09/14/15 10:33:00 LR IV 1,000 2014-08 No 1,000 mL, M emoria mL 2-17 Rate: 125 l 16:34: ml/hr, 00 Infuse over: 8 hr, Route: IV, Dosing Weight 168.864 kg, Total Volume: 1,000, Start date: 08/15/15 10:34:00, Duration: 30 day, Stop date: 09/14/15 10:33:00 Promethazin 2014-08 No Notes: Henok vane e 2-17 (Same as: l 16:34: Phenergan) 00 Acetaminoph 2014-08 No Notes: Do M [...] / 1,000, Sodium Start Lactate date: 0.028 15 MEQ/ML 10:34:00, Injectable Duration: Solution 30 day, [...] 2-17 Rate: 125 l 0.0014 16:34: ml/hr, [place] MEQ/ML / 00 Infuse Potassium over: 8 Chloride hr, Route: 0.004 IV, Dosing MEQ/ML / Weight Sodium 168.864 Chloride kg, Total 0.103 Volume: MEQ/ML / 1,000, Sodium Start Lactate date: 0.028 15 MEQ/ML 10:34:00, Injectable Duration: Solution 30 day, [...] 2-17 not exceed l 16:34: 4 gm/day. [place] 00 (Same as: Tylenol) Metoprolol 2014-08 No [...] 2-17 0.5 mL, l 16:34: Route: IV, [place] 00 Drug form: INJ, Q3H, Dosing Weight [...] Promethazin 2014-08 No Notes: Henok vane e -17 (Same as: l 16:34: Phenergan) Acetaminoph 2014-08 No Notes: Do M emoria en 10-16 not exceed l 16:34: 4 gm/day. [place] 00 (Same as: Tylenol) Metoprolol 2014-08 No Notes: Memor ia 2-17 (Same as: l 16:34: Lopressor) Push over 2 minutes Calcium 2014-08 No 1,000 mL, Memor ia Chloride - Rate: 125 l 0.0014 16:34: ml/hr, MEQ/ML / 00 Infuse Potassium over: 8 Chloride hr, Route: 0.004 IV, Dosing MEQ/ML / Weight Sodium 168.864 Chloride kg, Total 0.103 Volume: MEQ/ML / 1,000, Sodium Start Lactate date: 0.028 08/15/15 MEQ/ML 10:34:00, Injectable Duration: Solution 30 day, Stop date: 09/14/15 10:33:00 Naloxone 2014-08 No 0.04 mg, Memor ia -17 Route: l 16:23: IVP, [place] 00 Q2MIN, Dosing Weight 168.864, kg, PRN Narcotic Reversal, Start date: 08/15/15 10:23:00, Duration: 8 doses or times, Stop date: Limited # of times Naloxone 2014-08 No 0.04 mg, Memor ia -17 Route: l 16:23: IVP, [place] 00 Q2MIN, Dosing Weight 168.864, kg, PRN [...] moria e 2-17 Route: l 16:23: IVPB, [place] 00 ONCE, Dosing Weight 168.864, kg, PRN [...] oria ne 2-17 Route: l 16:23: IVP, [place] 00 Q5Min, Dosing Weight 168.864, kg, PRN [...] moria e 2-17 Route: l 16:23: IVPB, [place] 00 ONCE, Dosing Weight 168.864, kg, PRN Nausea & Vomiting, Start date: 08/15/15 10:23:00 Flumazenil 2014-08 No 0.2 mg, Henok vane 2-17 Route: l 16:23: IVP, PRN, [place] 00 Dosing Weight 168.864, kg, PRN Benzodiaze [...] Memor ia 2-17 Route: l 16:23: IVP, [place] 00 Q2MIN, Dosing Weight 168.864, kg, PRN Narcotic Reversal, Start date: 08/15/15 10:23:00, Duration: 8 doses or times, Stop date: Limited # of times Ondansetron 2014-08 No 4 mg, Memor ia 2-17 Route: l 16:23: IVP, ONCE, [place] 00 Dosing Weight 168.864, kg, PRN Nausea & Vomiting, Start date: 08/15/15 10:23:00 Promethazin 2014-08 No 6.25 mg, Me moria e 2-17 Route: l 16:23: IVPB, [place] 00 ONCE, Dosing Weight 168.864, kg, PRN Nausea & Vomiting, Start date: 08/15/15 10:23:00 Flumazenil 2014-08 No 0.2 mg, Henok vane 2-17 Route: l 16:23: IVP, PRN, [place] 00 Dosing Weight 168.864, kg, PRN Benzodiaze pine Reversal, Initial dose, Start date: 08/15/15 10:23:00, Duration: 30 day, Stop date: 09/14/15 10:22:00 Fentanyl 2014- No 25 Memoria 2-17 microgram, l 16:23: Route: [place] 00 IVP, Q5Min, Dosing Weight 168.864, kg, PRN Pain Score 4-6, Start date: 08/15/15 10:23:00, Duration: 4 doses or times, Stop date: Limited # of times Hydromorpho 2014-08 No 0.5 mg, Mem oria ne 2-17 Route: l 16:23: IVP, [place] 00 Q5Min, Dosing Weight 168.864, kg, PRN [...] ia 2-17 Route: l 16:23: IVP, ONCE, [place] 00 Dosing Weight 168.864, kg, PRN Nausea [...] 25 Memoria 2-17 microgram, l 16:23: Route: [place] 00 IVP, Q5Min, Dosing Weight 168.864, kg, PRN Pain Score 4-6, Start date: 08/15/15 10:23:00, Duration: 4 doses or times, Stop date: Limited # of times Hydromorpho 2014-08 No 0.5 mg, Mem oria ne 2-17 Route: l 16:23: IVP, [place] 00 Q5Min, Dosing Weight 168.864, kg, PRN [...] ia 2-17 Route: l 16:23: IVP, ONCE, [place] 00 Dosing Weight 168.864, kg, PRN Nausea & Vomiting, Start date: 08/15/15 10:23:00 Promethazin 2014-08 No 6.25 mg, Me moria e 2-17 Route: l 16:23: IVPB, [place] 00 ONCE, Dosing Weight 168.864, kg, PRN Nausea & Vomiting, Start date: 08/15/15 10:23:00 Flumazenil 2014-08 No 0.2 mg, Henok vane 2-17 Route: l 16:23: IVP, PRN, [place] 00 Dosing Weight 168.864, kg, PRN Benzodiaze pine Reversal, Initial dose, Start date: 08/15/15 10:23:00, Duration: 30 day, Stop date: 09/14/15 10:22:00 Fentanyl 2014-08 No 25 Memoria 2-17 microgram, l 16:23: Route: [place] 00 IVP, Q5Min, Dosing Weight 168.864, kg, [...] Memor ia 2-17 Route: l 16:23: IVP, [place] 00 Q2MIN, Dosing Weight 168.864, kg, PRN Narcotic Reversal, Start date: 08/15/15 10:23:00, Duration: 8 doses or times, Stop date: Limited # of times Ondansetron 2014-08 No 4 mg, Memor ia 2-17 Route: l 16:23: IVP, ONCE, [place] 00 Dosing Weight 168.864, kg, PRN Nausea & Vomiting, Start date: 08/15/15 10:23:00 Promethazin 2014-08 No 6.25 mg, Me moria e 2-17 Route: l 16:23: IVPB, [place] 00 ONCE, Dosing Weight 168.864, kg, PRN Nausea & Vomiting, Start date: 08/15/15 10:23:00 Flumazenil 2014-08 No 0.2 mg, Henok vane 2-17 Route: l 16:23: IVP, PRN, [place] 00 Dosing Weight 168.864, kg, PRN Benzodiaze pine Reversal, Initial dose, Start date: 08/15/15 10:23:00, Duration: 30 day, Stop date: 09/14/15 10:22:00 Fentanyl 2014-08 No 25 Memoria 2-17 microgram, l 16:23: Route: [place] 00 IVP, Q5Min, Dosing Weight 168.864, kg, PRN Pain Score 4-6, Start date: 08/15/15 10:23:00, Duration: 4 doses or times, Stop date: Limited # of times Hydromorpho 2014-08 No 0.5 mg, Mem oria ne 2-17 Route: l 16:23: IVP, [place] 00 Q5Min, Dosing Weight 168.864, kg, PRN [...] ia 2-17 Route: l 16:23: IVP, ONCE, [place] 00 Dosing Weight 168.864, kg, PRN Nausea & Vomiting, Start date: 08/15/15 10:23:00 Promethazin 2014-08 No 6.25 mg, Me moria e 2-17 Route: l 16:23: IVPB, [place] 00 ONCE, Dosing Weight 168.864, kg, PRN Nausea & Vomiting, Start date: 08/15/15 10:23:00 Flumazenil 2014-08 No 0.2 mg, Henok vane 2-17 Route: l 16:23: IVP, PRN, [place] 00 Dosing Weight 168.864, kg, PRN Benzodiaze pine Reversal, Initial dose, Start date: 08/15/15 10:23:00, Duration: 30 day, Stop date: 09/14/15 10:22:00 Fentanyl 2014-08 No 25 Memoria 2-17 microgram, l 16:23: Route: [place] 00 IVP, Q5Min, Dosing Weight 168.864, kg, [...] Memor ia 2-17 Route: l 16:23: IVP, [place] 00 Q2MIN, Dosing Weight 168.864, kg, PRN [...] vane 2-17 Route: l 16:23: IVP, PRN, [place] 00 Dosing Weight 168.864, kg, PRN Benzodiaze [...] oria ne 2-17 Route: l 16:23: IVP, [place] 00 Q5Min, Dosing Weight 168.864, kg, PRN [...] ia 2-17 Route: l 16:23: IVP, ONCE, [place] 00 Dosing Weight 168.864, kg, PRN Nausea & Vomiting, Start date: 08/15/15 10:23:00 Promethazin 2014-08 No 6.25 mg, Me moria e 2-17 Route: l 16:23: IVPB, [place] 00 ONCE, Dosing Weight 168.864, kg, PRN Nausea & Vomiting, Start date: 08/15/15 10:23:00 Flumazenil 2014-08 No 0.2 mg, Henok vane 2-17 Route: l 16:23: IVP, PRN, [place] 00 Dosing Weight 168.864, kg, PRN Benzodiaze pine Reversal, Initial dose, Start date: 08/15/15 10:23:00, Duration: 30 day, Stop date: 09/14/15 10:22:00 Fentanyl 2014-08 No 25 Memoria 2-17 microgram, l 16:23: Route: [place] 00 IVP, Q5Min, Dosing Weight 168.864, kg, [...] 2-17 Rate: 25 l 0.0014 13:59: ml/hr, [place] MEQ/ML / 00 Infuse Potassium over: 40 [...] day, Solution Stop date: 09/14/15 7:58:00 Calcium 2015-1 No 1,000 mL, Memor ia Chloride 2-17 [...] 2-17 Rate: 25 l 0.0014 13:59: ml/hr, [place] MEQ/ML / 00 Infuse Potassium over: 40 [...] 6:47:00, Stop date: 08/15/15 6:47:00 72 HR 2014- No 1 patch, Memoria Scopolamine 10-16 Route: l 0.0139 12:47: TOP, Drug Garrett n MG/HR 00 Form: Transdermal ERFILM, Patch Dosing Weight 175.909, kg, ONCE, Start date: 08/15/15 6:47:00, Stop date: 08/15/15 6:47:00 Emend 2014-08 No Notes: Memoria 2-14 Same as: l 16:00: Emend [place] 00 restricted to the Hematology /Oncology service for high and moderate emetogenic regimen according to ASCO Guidelines [place] h Only for Chemothera py-Induced nausea & vomiting heparin 2014-08 No Notes: Memoria sodium, 2-14 porcine l porcine 16:00: heparin [place] 2500 UNT/ML 00 Injectable Solution Cefazolin 2014-08 No Notes: Memori a 2-14 Same as: l 16:00: Ancef [place] 00 Emend 2014-08 No Notes: Memoria 2-14 Same as: l 16:00: Emend [place] 00 restricted to the Hematology /Oncology service for high and moderate emetogenic regimen according to ASCO Guidelines [place] Only for Chemothera py-Induced nausea & vomiting heparin 2014-08 No Notes: Memoria sodium, 2-14 porcine l porcine 16:00: heparin [place] 2500 UNT/ML 00 Injectable Solution Cefazolin 2014-08 No Notes: Memori a 2-14 Same as: l 16:00: Ancef [place] 00 Emend 2014-08 No Notes: Memoria 2-14 Same as: l 16:00: Emend [place] 00 restricted to the Hematology /Oncology service for high and moderate emetogenic regimen according to ASCO Guidelines [place] Only for Chemothera py-Induced nausea & vomiting heparin 2014-08 No Notes: Memoria sodium, 2-14 porcine l porcine 16:00: heparin [place] 2500 UNT/ML 00 Injectable Solution Cefazolin 2014-08 [...] Memoria 2-14 Same as: l 16:00: Emend [place] 00 restricted to the Hematology /Oncology service for high and moderate emetogenic regimen according to ASCO Guidelines [place] Only for Chemothera py-Induced nausea & vomiting heparin 2014-08 No Notes: Memoria sodium, 2-14 porcine l porcine 16:00: heparin [place] 2500 UNT/ML 00 Injectable Solution Cefazolin 2014-08 No Notes: Memori a 2-14 Same as: l 16:00: Ancef [place] 00 Emend 2014-08 No Notes: Memoria 2-14 [...] a 2-14 Same as: l 16:00: Ancef [place] 00 Emend 2014-08 No Notes: Memoria 2-14 Same as: l 16:00: Emend [place] 00 restricted to the Hematology /Oncology service [...] Memoria 2-14 Same as: l 16:00: Emend [place] 00 restricted to the Hematology /Oncology service [...] 2-14 Same as: l 16:00: Emend [place] restricted to the Hematology /Oncology service for high and moderate emetogenic regimen according to ASCO Guidelines [place] Only for Chemothera py-Induced nausea & vomiting heparin 2014-08 No Notes: Memoria sodium, 2-14 porcine l porcine 16:00: heparin [place] 2500 UNT/ML 00 Injectable Solution Cefazolin 2014-08 [...] for insomnia, # 90 tab, 0 Refill(s) Depo-Ignition Specialist 2014-08 Yes 150 mg = 1 Memoria a 2-14 mL, IM, l Contracepti 15:44: q3mo, # 1 H ermann ve 150 00 mL, 0 mg/mL Refill(s) intramuscul ar suspension Hydrochloro 2014-08 Yes 1 tab, PO, Memoria thiazide 25 2-14 Daily, # l MG / 15:44: 30 tab, 0 [place] Lisinopril 00 Refill(s) 20 MG Oral Tablet Melatonin 2014-08 Yes 1 mg = 1 Me moria mg oral 2-14 tab, PO, l tablet 15:44: Bedtime, [place] 00 PRN for insomnia, # 90 tab, 0 Refill(s) Depo-Ignition Specialist 2014-08 Yes 150 mg = 1 Memoria [...] for insomnia, # 90 tab, 0 Refill(s) Depo-Ignition Specialist 2014-08 Yes 150 mg = 1 Memoria [...] 2-14 tab, PO, l tablet 15:44: Bedtime, [place] 00 PRN for insomnia, # 90 tab, 0 Refill(s) Depo-Ignition Specialist 2014-08 Yes 150 mg = 1 Memoria [...] 2-14 tab, PO, l tablet 15:44: Bedtime, [place] 00 PRN for insomnia, # 90 tab, 0 Refill(s) Depo-Ignition Specialist 2014-08 Yes 150 mg = 1 Memoria a 2-14 mL, IM, l Contracepti 15:44: q3mo, # 1 H ermann ve 150 00 mL, 0 mg/mL Refill(s) intramuscul ar suspension Hydrochloro 2014-08 Yes 1 tab, PO, Memoria thiazide 25 2-14 Daily, # l MG / 15:44: 30 tab, 0 [place] Lisinopril 00 Refill(s) 20 MG Oral Tablet Melatonin 2014-08 Yes 1 mg = 1 Me moria mg oral 2-14 tab, PO, l tablet 15:44: Bedtime, [place] 00 PRN for insomnia, # 90 tab, 0 Refill(s) Depo-Ignition Specialist 2014-08 Yes 150 mg = 1 Memoria a 2-14 mL, IM, l Contracepti 15:44: q3mo, # 1 H ermann ve 150 00 mL, 0 mg/mL Refill(s) intramuscul ar suspension Hydrochloro 2014-08 Yes 1 tab, PO, Memoria thiazide 25 2-14 Daily, # l MG / 15:44: 30 tab, 0 [place] Lisinopril 00 Refill(s) 20 MG Oral Tablet Melatonin 1 2014-08 Yes 1 mg = 1 Me moria mg oral 2-14 tab, PO, l tablet 15:44: Bedtime, [place] 00 PRN for insomnia, # 90 tab, 0 Refill(s) Depo-Ignition Specialist 2014-08 Yes 150 mg = 1 Memoria a 2-14 mL, IM, l Contracepti 15:44: q3mo, # 1 H ermann ve 150 00 mL, 0 mg/mL Refill(s) intramuscul ar suspension Hydrochloro 2014-08 Yes 1 tab, PO, Memoria thiazide 25 2-14 Daily, # l MG / 15:44: 30 tab, 0 [place] Lisinopril 00 Refill(s) 20 MG Oral Tablet Melatonin 2014-08 Yes 1 mg = 1 Me moria mg oral 2-14 tab, PO, l tablet 15:44: Bedtime, [place] 00 PRN for insomnia, # 90 tab, 0 Refill(s) Depo-Ignition Specialist 2014-08 Yes 150 mg = 1 Memoria [...] 2-14 tab, PO, l tablet 15:44: Bedtime, [place] 00 PRN for insomnia, # 90 tab, 0 Refill(s) Depo-Ignition Specialist 2014-08 Yes 150 mg = 1 Memoria a 2-14 mL, IM, l Contracepti 15:44: q3mo, # 1 H ermann ve 150 00 mL, 0 mg/mL Refill(s) intramuscul ar suspension [id number] 2014-08 No 1,000 mL, Memori a 1,000 mL 2-14 Rate: 125 l 15:13: ml/hr, [place] 00 Infuse over: 8 hr, Route: IV, Dosing Weight 175.909 kg, Total Volume: 1,000, Start date: 08/12/15 9:13:00, Duration: 4 day, Stop date: 08/16/15 9:12:00 72 HR 2014-08 No Notes: Memoria Scopolamine 2-14 Change l 0.0139 15:13: patch [place] MG/HR 00 every 72 Transdermal hours Patch (Same as: Transderm- Scop) [facility] 2014-08 No 1,000 mL, Memori a 1,000 mL 2-14 Rate: 125 l 15:13: ml/hr, [place] 00 Infuse over: 8 hr, Route: IV, Dosing Weight 175.909 kg, Total Volume: 1,000, Start date: 08/12/15 9:13:00, Duration: 4 day, Stop date: 08/16/15 9:12:00 72 HR 2014-08 No Notes: Memoria Scopolamine 2-14 Change l 0.0139 15:13: patch [place] MG/HR 00 every 72 Transdermal hours Patch (Same as: Transderm- Scop) [facility] 2014-08 No 1,000 mL, Memori a 1,000 mL 2-14 Rate: 125 l 15:13: ml/hr, [place] 00 Infuse over: 8 hr, Route: IV, Dosing Weight 175.909 kg, Total Volume: 1,000, Start date: 08/12/15 9:13:00, Duration: 4 day, Stop date: 08/16/15 9:12:00 72 HR 2014-08 No Notes: Memoria Scopolamine 2-14 Change l 0.0139 15:13: patch [place] MG/HR 00 every 72 Transdermal hours Patch (Same as: Transderm- Scop) [facility] 2014-08 No 1,000 mL, Memori [...] Transdermal hours Patch (Same as: Transderm- Scop) [facility] 2014-08 No 1,000 mL, Memori [...] Transdermal hours Patch (Same as: Transderm- Scop) [facility] 2014-08 No 1,000 mL, Memori a 1,000 mL 2-14 Rate: 125 l 15:13: ml/hr, [place] 00 Infuse over: 8 hr, Route: IV, Dosing Weight 175.909 kg, Total Volume: 1,000, Start date: 08/12/15 9:13:00, Duration: 4 day, Stop date: 08/16/15 9:12:00 72 HR 2014-08 No Notes: Memoria Scopolamine 2-14 Change l 0.0139 15:13: patch [place] MG/HR 00 every 72 Transdermal hours Patch (Same as: Transderm- Scop) [facility] 2014-08 No 1,000 mL, Memori a 1,000 mL 2-14 Rate: 125 l 15:13: ml/hr, [place] 00 Infuse over: 8 hr, Route: IV, Dosing Weight 175.909 kg, Total Volume: 1,000, Start date: 08/12/15 9:13:00, Duration: 4 day, Stop date: 08/16/15 9:12:00 72 HR 2014-08 No Notes: Memoria Scopolamine 2-14 Change l 0.0139 15:13: patch [place] MG/HR 00 every 72 Transdermal hours Patch (Same as: Transderm- Scop) [facility] 2014-08 No 1,000 mL, Memori a 1,000 mL 2-14 Rate: 125 l 15:13: ml/hr, [place] 00 Infuse over: 8 hr, Route: IV, Dosing Weight 175.909 kg, Total Volume: 1,000, Start date: 08/12/15 9:13:00, Duration: 4 day, Stop date: 08/16/15 9:12:00 72 HR 2014-08 No Notes: Memoria Scopolamine 2-14 Change l 0.0139 15:13: patch Dav MG/HR 00 every 72 Transdermal hours Patch (Same as: Transderm- Scop) [id number] 2014-08 No 1,000 mL, Memori a 1,000 mL 2-14 Rate: 125 l 15:13: ml/hr, [place] 00 Infuse over: 8 hr, Route: IV, Dosing Weight 175.909 kg, Total Volume: 1,000, Start date: 08/12/15 9:13:00, Duration: 4 day, Stop date: 08/16/15 9:12:00 72 HR 2014-08 No Notes: Memoria Scopolamine 2-14 Change l 0.0139 15:13: patch Dav MG/HR 00 every 72 Transdermal hours Patch (Same as: Transderm- Scop) Naloxone 2014-08 No 0.1 mg, Memori a 0-12 Route: l 14:25: IVP, [place] 00 Q2MIN, Dosing Weight 175.909, kg, PRN [...] 30 day, Stop date: 07/10/15 8:24:00 Naloxone 2014-1 No 0.1 mg, Memori a 0-12 Route: [...] 30 day, Stop date: 07/10/15 8:24:00 Naloxone 2014-1 No 0.1 mg, Memori a 0-12 Route: l 14:25: IVP, [place] 00 Q2MIN, Dosing Weight 175.909, kg, PRN Narcotic Reversal, Start date: 06/10/15 9:25:00, Duration: 4 doses or times, Stop date: Limited # of times Flumazenil 2014-08 No 0.1 mg, Henok vane 0-12 Route: l 14:25: IVP, [place] 00 Q5Min, Dosing Weight 175.909, kg, PRN Other -See Comment, Start date: 06/10/15 9:25:00, Duration: 30 day, Stop date: 07/10/15 8:24:00 Naloxone 2014-1 No 0.1 mg, Memori a 0-12 Route: [...] Henok vane 0-12 Route: l 14:25: IVP, [place] 00 Q5Min, Dosing Weight 175.909, kg, PRN Other -See Comment, Start date: 06/10/15 9:25:00, Duration: 30 day, Stop date: 07/10/15 8:24:00 Naloxone 2014- No 0.1 mg, Memori a 0-12 Route: l 14:25: IVP, [place] 00 Q2MIN, Dosing Weight 175.909, kg, PRN Narcotic Reversal, Start date: 06/10/15 9:25:00, Duration: 4 doses or times, Stop date: Limited # of times Flumazenil 2014-08 No 0.1 mg, Henok vane 0-12 Route: l 14:25: IVP, [place] 00 Q5Min, Dosing Weight 175.909, kg, PRN Other -See Comment, Start date: 06/10/15 9:25:00, Duration: 30 day, Stop date: 07/10/15 8:24:00 Naloxone 2014- No 0.1 mg, Memori a 0-12 Route: l 14:25: IVP, [place] 00 Q2MIN, Dosing Weight 175.909, kg, PRN Narcotic Reversal, Start date: 06/10/15 9:25:00, Duration: 4 doses or times, Stop date: Limited # of times Flumazenil 2014-08 No 0.1 mg, Henok vane 0-12 Route: l 14:25: IVP, [place] 00 Q5Min, Dosing Weight 175.909, kg, PRN [...] 30 day, Stop date: 07/10/15 8:24:00 Sodium 2014-1 No 1,000 mL, Memori a [...] 0-12 Rate: 25 l 0.154 12:06: ml/hr, [place] MEQ/ML 00 Infuse Injectable over: 40 Solution [...] 0-12 Rate: 25 l 0.154 12:06: ml/hr, [place] MEQ/ML 00 Infuse Injectable over: 40 Solution [...] 0-12 Rate: 25 l 0.154 12:06: ml/hr, [place] MEQ/ML 00 Infuse Injectable over: 40 Solution [...] l Oral Tablet 19:35: BID, # 120 [place] [Trileptal] 00 tab, 0 Refill(s) Hydrochloro 2014-08 [...] l Oral Tablet 19:35: BID, # 120 [place] [Trileptal] 00 tab, 0 Refill(s) Hydrochloro 2014-08 No 1 tab, PO, Memoria thiazide 25 0-09 Daily, # l MG / 19:35: 30 tab, 0 [place] Lisinopril 00 Refill(s) 20 MG Oral Tablet oxcarbazepi 2014-08 Yes 600 mg = 2 Memoria ne 300 MG 0-09 tab, PO, l Oral Tablet 19:35: BID, # 120 [place] [Trileptal] 00 tab, 0 Refill(s) Hydrochloro 2015-1 No 1 tab, PO, Memoria thiazide 25 [...] l MG / 19:35: 30 tab, 0 [place] Lisinopril 00 Refill(s) 20 MG Oral Tablet oxcarbazepi 2014-08 Yes 600 mg = 2 Memoria ne 300 MG 0-09 tab, PO, l Oral Tablet 19:35: BID, # 120 [place] [Trileptal] 00 tab, 0 Refill(s) Hydrochloro 2014-08 [...] l MG / 19:35: 30 tab, 0 [place] Lisinopril 00 Refill(s) 20 MG Oral Tablet oxcarbazepi 2014-08 Yes 600 mg = 2 Memoria ne 300 MG 0-09 tab, PO, l Oral Tablet 19:35: BID, # 120 [place] [Trileptal] 00 tab, 0 Refill(s) atomoxetine 2014-08 [...] Date Status Commen ts Source Name Name [employer] 2021-04-05 Completed [facility] AD26 VACCINATION 00:00[facility]00 [facility] Com[facility] AD26 VACCINATION 00:00:00 [facility] [employer]formerly [employer] 2021-04-05 Completed [facility] t AD26 VACCINATION 00:00:00 [place] [id number] 2021-04-05 Completed [facility] t AD26 VACCINATION 00:00:00 [facility] DAVIDE MACKENZIEID-Chau 2021-04-05 Completed Methodis t AD26 VACCINATION 00:00:00 [facility] DAVIDE COLLIER-Chau 2021-04-05 Completed Methodis t AD26 VACCINATION 00:00:00 [facility] DAVIDE COLLIER-Chau 2021-04-05 Completed Methodis t AD26 VACCINATION 00:00:00 Hospital pneumococcal 2015-08-16 [facility] [...] [facility] 18:10:35 vaccine<sup>1</sup> Vital Signs Vital Name Observation Time Observation Value Comments Source Systolic blood 2022-08-26 19:08:00 166 mm[Hg] Univer sity of pressure [facility] Diastolic blood 2022-08-26 19:08:00 99 mm[Hg] Unive rsity of pressure [facility] Heart rate 2022-08-26 19:08:00 77 /min [facility] Body temperature 2022-08-26 19:08:00 37 [facility] 2022-08-26 19:08:00 18 /min [facility] height 2022-08-26 19:08:00 170.2 cm [facility] Body weight 2022-08-26 19:08:00 147.419 kg [facility] BMI 2022-08-26 19:08:00 50.90 kg/m2 [facility] Oxygen saturation in 2022-08-26 19:08:00 98 /min [facility] Arterial blood by [facility] Pulse oximetry Branch BP Diastolic 2022-04-08 00:00:00 90 mm[Hg] [facility] Height 2022-04-08 00:00:00 66 [in_i] [facility] BMI (Body Mass 2022-04-08 00:00:00 53.7 kg/m2 [facility] Medical Index) BP Systolic 2022-04-08 00:00:00 142 mm[Hg] [facility] Body Weight 2022-04-08 00:00:00 333 [lb_av] [facility] BP Diastolic 2021-12-18 00:00:00 86 mm[Hg] [facility] Height 2021-12-18 00:00:00 66 [in_i] [facility] BMI (Body Mass 2021-12-18 00:00:00 54.7 kg/m2 [facility] Medical Index) BP Systolic 2021-12-18 00:00:00 140 mm[Hg] [facility] Body Weight 2021-12-18 00:00:00 339 [lb_av] [facility] edical BP Diastolic 2021-11-25 00:00:00 88 mm[Hg] Faith Nicole edical BP Systolic 2021-11-25 00:00:00 138 mm[Hg] Faith Nicole [facility] Body Weight 2021-11-25 00:00:00 338 [lb_av] Faith Nicole [facility]ical Systolic blood 2022-06-12 02:38:00 128 mm[Hg] [facility] pressure Diastolic blood 2022-06-12 02:38:00 77 mm[Hg] [facility] pressure Heart rate 2022-06-12 02:38:00 63 [facility] 2022-06-12 02:38:00 18 /min [facility] saturation in 2022-06-12 02:38:00 97 /min [facility] Arterial blood by Pulse oximetry Body temperature 2022-06-11 23:40:00 36.5 Gabrielle Meth [facility] Body height 2022-06-11 23:38:00 170.2 cm [facility] Body weight 2022-06-11 23:38:00 145.151 kg [facility] BMI 2022-06-11 23:38:00 50.12 kg/m2 [facility] Systolic (mm Hg) 2022-03-19 07:00:00 Henok rial [place] Diastolic (mm Hg) 2022-03-19 07:00:00 [facility] orial [place] Respitory Rate 2022-03-19 07:00:00 [facility] [place] Heart Rate 2022-03-19 07:00:00 [facility] Height 2022-03-19 03:25:00 170.18 cm [facility] [place] BMI Calculated 2022-03-19 03:25:00 [facility] [place] Weight 2022-03-19 03:25:00 [facility] Systolic (mm Hg) 2022-03-19 03:25:00 Henok rial Dav Diastolic (mm Hg) 2022-03-19 03:25:00 Mem orial Dav Heart Rate 2022-03-19 03:25:00 [facility] Respitory Rate 2022-03-19 03:25:00 [facility] [place] Temperature Oral (F) 2022-03-19 03:25:00 98.4 F [facility] Temperature Oral (F) 2022-03-14 04:45:00 99.1 F [facility] Heart Rate 2022-03-14 04:45:00 [facility] Respitory Rate 2022-03-14 04:45:00 [facility] [place] Systolic (mm Hg) 2022-03-14 04:45:00 Henok rial Dav Diastolic (mm Hg) 2022-03-14 04:45:00 Mem orial Dav Weight 2022-03-14 00:40:00 [facility] Systolic (mm Hg) 2022-03-14 00:40:00 Henok rial Dav Diastolic (mm Hg) 2022-03-14 00:40:00 Mem orial [place] Heart Rate 2022-03-14 00:40:00 [facility] [place] Respitory Rate 2022-03-14 00:40:00 Memori al Dav Temperature Oral (F) 2022-03-14 00:40:00 100 F [facility] [place] Systolic (mm Hg) 2021-01-21 01:00:00 [facility] [place] Diastolic (mm Hg) 2021-01-21 01:00:00 Mem orial [place] Heart Rate 2021-01-21 01:00:00 [facility] [place] Respitory Rate 2021-01-21 01:00:00 [facility] [place] Temperature Oral (F) 2021-01-21 01:00:00 98.5 F [facility] Height 2021-01-20 21:08:00 170.18 cm [facility] BMI Calculated 2021-01-20 21:08:00 Mem[facility] al [facility] Weight 2021-01-20 21:08:00 [facility] [place] Systolic (mm Hg) 2021-01-20 21:08:00 Henok rial Dav Diastolic (mm Hg) 2021-01-20 21:08:00 Mem orial [place] Heart Rate 2021-01-20 21:08:00 [facility] Respitory Rate 2021-01-20 21:08:00 Mem[facility] al Dav Temperature Oral (F) 2021-01-20 21:08:00 98.7 F [facility] Weight 2015-09-19 21:05:00 [facility] [place] Temperature Oral (F) 2015-09-19 20:45:00 97.7 F [facility] [place] Systolic (mm Hg) 2015-09-19 20:45:00 [facility] [place] Diastolic (mm Hg) 2015-09-19 20:45:00 Mem orial Dav Heart Rate 2015-09-19 20:45:00 [facility] [place] Respitory Rate 2015-09-19 20:45:00 Memori al Dav Respitory Rate 2015-09-19 18:54:00 [facility] [place] Systolic (mm Hg) 2015-09-19 18:54:00 Henok rial Dav Diastolic (mm Hg) 2015-09-19 18:54:00 Mem orial [place] Systolic (mm Hg) 2015-09-19 18:39:00 Henok rial Dav Diastolic (mm Hg) 2015-09-19 18:39:00 Mem orial [place] Respitory Rate 2015-09-19 18:39:00 Memori al Dav Heart Rate 2015-09-19 18:04:00 [facility] Temperature Oral (F) 2015-09-19 13:40:00 97.8 F [facility] [place] Heart Rate 2015-09-19 13:40:00 [facility] Temperature Oral (F) 2015-09-19 11:08:00 97.9 F [facility] [place] Weight 2015-09-18 05:03:00 [facility] Weight 2015-09-18 00:07:00 [facility] Height 2015-09-18 00:07:00 170.18 cm [facility] BMI Calculated 2015-09-18 00:07:00 [facility] [place] Temperature Oral (F) 2015-08-26 22:06:00 98 F [facility] Heart Rate 2015-08-26 22:06:00 [facility] Respitory Rate 2015-08-26 22:06:00 [facility] [place] Systolic (mm Hg) 2015-08-26 22:06:00 Henok rial Dav Diastolic (mm Hg) 2015-08-26 22:06:00 Mem orial Dav Temperature Oral (F) 2015-08-26 20:46:00 98.0 F [facility] Systolic (mm Hg) 2015-08-26 20:46:00 Henok rial Dav Diastolic (mm Hg) 2015-08-26 20:46:00 Mem [facility] [place] Respitory Rate 2015-08-26 20:46:00 Memori al Dav Heart Rate 2015-08-26 20:46:00 [facility] [place] Weight 2015-08-26 16:38:00 [facility] [place] BMI Calculated 2015-08-26 16:38:00 [facility] [place] Respitory Rate 2015-08-26 16:38:00 [facility] [place] Heart Rate 2015-08-26 16:38:00 [facility] [place] Systolic (mm Hg) 2015-08-26 16:38:00 [facility] [facility] [place] Diastolic (mm Hg) 2015-08-26 16:38:00 Mem orial Dav Height 2015-08-26 16:38:00 170.18 cm [facility] [place] Temperature Oral (F) 2015-08-26 16:38:00 97.9 F [facility] [place] Systolic (mm Hg) 2015-08-16 18:33:00 Hen[place] [facility] [place] Diastolic (mm Hg) 2015-08-16 18:33:00 Mem orial Dav Heart Rate 2015-08-16 18:33:00 [facility] [place] Respitory Rate 2015-08-16 18:33:00 [facility] [place] Temperature Oral (F) 2015-08-16 18:33:00 97.9 F [facility] Respitory Rate 2015-08-16 14:00:00 Mem[facility] Systolic (mm Hg) 2015-08-16 14:00:00 [facility]ok [facility] [place] Diastolic (mm Hg) 2015-08-16 14:00:00 Mem [facility] [place] Temperature Oral (F) 2015-08-16 14:00:00 98.0 F [facility] Heart Rate 2015-08-16 14:00:00 [facility] [place] Temperature Oral (F) 2015-08-16 10:20:00 98.1 F [facility] [place] Heart Rate 2015-08-16 10:20:00 [facility] [place] Systolic (mm Hg) 2015-08-16 10:20:00 Hen[place] [facility] [place] Diastolic (mm Hg) 2015-08-16 10:20:00 Mem orial Dav Respitory Rate 2015-08-16 10:20:00 Memori al Dav Height 2015-08-15 17:30:00 170.18 cm [facility] [place] Weight 2015-08-15 17:30:00 [facility] BMI Calculated 2015-08-15 17:30:00 [facility] [place] Weight 2015-08-15 12:45:00 [facility] [place] Height 2015-08-12 15:32:00 170.18 cm [facility] Weight 2015-08-12 15:32:00 [facility] [place] BMI Calculated 2015-08-12 15:32:00 Memori al Dav Respitory Rate 2015-06-10 14:07:00 [facility] [place] Systolic (mm Hg) 2015-06-10 14:07:00 [facility] [facility] [place] Diastolic (mm Hg) 2015-06-10 14:07:00 Mem [facility] [place] Systolic (mm Hg) 2015-06-10 13:52:00 Henok rial Dav Diastolic (mm Hg) 2015-06-10 13:52:00 Mem orial [place] Respitory Rate 2015-06-10 13:52:00 [facility] [place] Systolic (mm Hg) 2015-06-10 13:37:00 Henok Demarco Diastolic (mm Hg) 2015-06-10 13:37:00 Daily Demarco Respitory Rate 2015-06-10 13:37:00 Lucy Hannah Weight 2015-06-07 19:28:00 Rosemarie Demarco BMI Calculated 2015-06-07 19:28:00 Lucy Hannah Height 2015-06-07 19:28:00 170[facility]18 [facility] Procedure Date / Time Performing Source Performed Clinician XR CHEST 2 VW 2022-08-26 [facility] of 20:46:19 [facility] RAPID INFLUENZA A/B 2022-08-26 [facility] o f 19:56:00 [facility] COVID-19 (ID NOW RAPID TESTING) 2022-08-26 [facility] of 19:56:00 [facility] NOTICE OF PRIVACY PRACTICES 2022-08-26 [facility] 18:35:53 Unassigned, No [facility] CONSENT/REFUSAL FOR DIAGNOSIS AND 2022-08-26 [facility] TREATMENT 18:35:08 Unassigned, No [facility] URINE CULTURE 2022-06-12 Shayne Menezes 02:11:00 [facility] URINALYSIS 2022-06-12 Shayne Menezes 02:11:00 [facility] HCG QUALITATIVE, URINE SCREEN 2022-06-12 Shayne Menezes [facility]odist 02:11:00 [facility] INFLUENZA ANTIGEN 2022-06-12 Shayne Menezes 00:07:00 [facility] CBC WITH PLATELET AND DIFFERENTIAL 2022-06-12 Amaury Menezes 00:07:00 [facility] COMPREHENSIVE METABOLIC PANEL 2022-06-12 Shayne Menezes thodist 00:07:00 [facility] ESTIMATED GFR 2022-06-12 Shayne Menezes 00:07:00 [facility] MANUAL DIFFERENTIAL 2022-06-12 Shayne Menezes 00:07:00 [facility] CBC WITH PLATELET AND DIFFERENTIAL 2022-06-12 Amaury Menezes 00:07:00 [facility] XR CHEST 1 VW 2022-06-11 Shayne Menezes 23:55:13 [facility] MRI PITUITARY W WO CONTRAST 2021-12-05 Kaycee Longo Monty odist 16:05:12 [facility] MRI, pituitary, w/wo contrast 2021-11-27 [facility] 00:00:00 US PELVIC TRANSABDOMINAL 2021-11-[address] 07:30:53 [facility] US PELVIC TRANSVAGINAL 2021-11-09 Edin Lakhani 07:30:53 [facility] HCG QUALITATIVE, SERUM SCREEN 2021-11-09 Kar Me thodist 03:50:00 [facility] HC COMPLETE BLD COUNT W/AUTO DIFF 2021-11-09 Edin Lakhani 03:35:00 [facility] PROTHROMBIN TIME WITH INR 2021-11-09 Jack Lakhani ist 03:35:00 [facility] PARTIAL THROMBOPLASTIN TIME (PTT) 2021-11-09 Edin Lakhani 03:35:00 [facility] COMPREHENSIVE METABOLIC PANEL 2021-11-[address] [facility]ist 03:35:00 [facility] ESTIMATED GFR 2021-11-09 Edin Lakhani 03:35:00 [facility] Gastric Bypass for Obesity 2014-08-30 [facility] 00:00:00 Cholecystectomy 2014-08-30 [facility] 00:00:00 Arthroscopy of knee<sup>1</sup> [facility] Esophagogastroduodenoscopy Memor ial Dav Banding of gastric varices [facility] [place] Plan of Care Planned Activity Planned Date Details Comments Source Future Scheduled Test 2022-12-[address] [facility] [place] [place] 03:26:37 screening (procedure) [code = 915538563] Future Scheduled Test 2022-12-04 Screening for [facility] 03:26:37 malignant neoplasm of cervix (procedure) [code = 173797813] Future Scheduled Test 2022-12-04 COVID-19 VACCINE ([address] [facility] 03:26:37 - Booster for Davide series) [code = COVID-19 VACCINE (3 - Booster for Davide series)] Future Scheduled Test 2022-12-04 INFLUENZA VACCINE [facility] 03:26:37 [code = INFLUENZA VACCINE] Future Scheduled Test 2022-12-04 Hepatitis C [facility] 03:26:37 screening (procedure) [code = 705389796] Future Scheduled Test 2022-12-04 [facility] 03:26:37 malignant neoplasm of cervix (procedure) [code = 250411471] Future Scheduled Test 2022-12-04 COVID-19 VACCINE ([address] [place] [address] 03:26:37 - Booster for Davide series) [code = COVID-19 VACCINE (3 - Booster for Davide series)] Future Scheduled Test 2022-12-04 INFLUENZA VACCINE [facility] 03:26:37 [code = INFLUENZA VACCINE] Future Scheduled Test 2022-12-04 Hepatitis C [facility] 03:26:37 screening (procedure) [code = 023538365] Future Scheduled Test 2022-12-04 Screening for [facility] 03:26:37 malignant neoplasm of cervix (procedure) [code = 756343465] Future Scheduled Test 2022-12-04 COVID-19 VACCINE ([address] [place] [address] 03:26:37 - Booster for Davide series) [code = COVID-19 VACCINE (3 - Booster for Davide series)] Future Scheduled Test 2022-12-04 INFLUENZA VACCINE [facility] 03:26:37 [code = INFLUENZA VACCINE] Future Scheduled Test 2022-12-04 Hepatitis C [facility] 03:26:37 screening (procedure) [code = 249147850] Future Scheduled Test 2022-12-04 [facility] 03:26:37 malignant neoplasm of cervix (procedure) [code = 204306946] Future Scheduled Test 2022-12-04 COVID-19 VACCINE ([address] [place] [address] 03:26:37 - Booster for Davide series) [code = COVID-19 VACCINE (3 - Booster for Davide series)] Future Scheduled Test 2022-12-04 INFLUENZA VACCINE [facility] 03:26:37 [code = INFLUENZA VACCINE] Future Scheduled Test 2022-10-17 Hepatitis C [facility] 21:28:36 screening (procedure) [code = 534369912] Future Scheduled Test 2022-10-17 [facility] 21:28:36 malignant neoplasm of cervix (procedure) [code = 872215203] Future Scheduled Test 2022-10-17 COVID-19 VACCINE ([address] [place] [address] 21:28:36 - Booster for Davide series) [code = COVID-19 VACCINE (3 - Booster for Davide series)] Future Scheduled Test 2022-10-17 INFLUENZA VACCINE [facility] 21:28:36 [code = INFLUENZA VACCINE] Future Scheduled Test 2022-10-17 Hepatitis C [facility] 21:28:36 screening (procedure) [code = 387261524] Future Scheduled Test 2022-10-17 Screening for [facility] 21:28:36 malignant neoplasm of cervix (procedure) [code = 353795656] Future Scheduled Test 2022-10-17 COVID-19 VACCINE ([address] [place] [address] 21:28:36 - Booster for Davide series) [code = COVID-19 VACCINE (3 - Booster for Davide series)] Future Scheduled Test 2022-10-17 INFLUENZA VACCINE [facility] 21:28:36 [code = INFLUENZA VACCINE] Future Scheduled Test 2022-10-17 Hepatitis C [facility] 21:28:36 screening (procedure) [code = 297614432] Future Scheduled Test 2022-10-17 [facility] 21:28:36 malignant neoplasm of cervix (procedure) [code = 722413667] Future Scheduled Test 2022-10-17 COVID-19 VACCINE ([address] [place] [address] 21:28:36 - Booster for Davide series) [code = COVID-19 VACCINE (3 - Booster for Davide series)] Future Scheduled Test 2022-10-17 INFLUENZA VACCINE [facility] 21:28:36 [code = INFLUENZA VACCINE] Diagnostic Test 2021-12-18 unlisted lab [code [facility] Pending 00:00:00 = unlisted lab] Encounters Start End Encounter Admission Attending Care Care Encounter Source Date/Time Date/Time Type Type Clinicians Facility Department ID 2022-05-13 Outpatient [facility] [id number] [place] 08:18:57 [id number] [facility] 2022-05-07 Outpatient [facility] [id number] [place] 12:12:06 [id number] [facility] 2022-05-06 Outpatient [facility] [id number] [place] 07:02:43 [id number] [facility] 2022-03-26 Outpatient [facility] [id number] [place] 11:04:27 [id number] [facility] 2022-02-06 Outpatient [facility] [id number] [place] 09:50:06 [id number] [facility] 2021-11-28 Outpatient [facility] [id number] [place] 13:41:01 [id number] [facility] 2021-11-26 Outpatient [facility] [id number] [place] 12:18:16 [id number] [facility] 2021-11-24 Outpatient [facility] [id number] [place] 06:46:20 [id number] [facility] 2016-09-10 Inpatient [facility] [id number] [place] 18:31:18 [facility] 2016-09-03 Inpatient [facility] [id number] [place] 19:49:43 [facility] 2016-09-02 Inpatient [facility] [id number] [place] 14:46:00 [facility] 2016-08-28 Inpatient [facility] [id number] [place] 12:49:08 [facility] 2016-08-25 Inpatient [facility] [id number] [place] 18:38:06 [facility] 2016-08-25 Inpatient [facility] [id number] [place] 00:00:00 [facility] 2016-08-25 Inpatient [facility] [id number] [place] 00:00:00 [facility] 2016-08-24 Inpatient [facility] [id number] [place] 12:38:32 [facility] 2016-08-23 Inpatient [facility] [id number] [place] 23:40:15 [facility] 2016-08-23 Inpatient [facility] [id number] [place] 18:01:15 [facility] 2016-08-23 Inpatient [facility] [id number] [place] 05:23:14 [facility] 2016-08-23 Inpatient [facility] [id number] [place] 01:38:20 [facility] 2016-08-23 Inpatient [facility] [id number] [place] 01:10:06 [facility] 2016-08-22 Inpatient [facility] [id number] [place] 18:58:47 [facility] 2023-01-14 2023-01-14 Outpatient [facility] [place] 16:07:56 16:07:56 [id number] [facility] 2022-12-08 2022-12-08 Outpatient SFA SFA [id number] [place] 09:33:18 09:33:18 [id number] [facility] 2022-11-26 2022-11-26 Outpatient SFA SFA [id number] [place] 15:59:13 15:59:13 [id number] [facility] 2022-11-24 2022-11-24 Outpatient SFA [place] 16:43:56 16:43:56 [id number] [facility] [place] 2022-11-19 2022-11-19 Outpatient SFA SFA [place] 16:29:20 16:29:20 [id number] [facility] [place] 2022-10-20 2022-10-20 Outpatient [facility] [place] 15:07:59 15:07:59 [id number] [facility] [place] 2022-10-19 2022-10-19 Outpatient SFA SFA [place] 15:42:38 15:42:38 [id number] [facility] [place] 2022-08-26 2022-08-26 Emergency X JAQUELIN, [facility] ERT [id number] [facility] 13:09:00 16:01:00 DOUG sarmiento of [facility] 2022-08-26 2022-08-26 Emergency Jaquelin, [facility] [id number] [facility] 13:09:00 16:01:00 Doug BERGMAN 350.1.13.10 [facility] 4.2.7.2.686 [facility] [id number] [address] 2022-08-06 2022-08-06 Outpatient [facility] [id number] [address] [place] [address] 00:00:00 00:00:00 [facility] 2022-06-17 2022-06-17 Outpatient [facility] [id number] [place] 00:00:00 00:00:00 [facility] 2022-06-11 2022-06-11 Emergency Hoang, 1.2.840.1 [id number] Methodi 18:26:00 22:09:[address] 3.430.2.7 Hospit a .3.513986 l .8 2022-06-11 2022-06-11 Emergency Hoang, 1.2.840.1 [id number] [id number] [facility] 18:26:00 22:09:[id number] 3.430.2.7 Hospit a .3.631837 l .8 2022-06-11 2022-06-11 Travel 1.2.840.1 1.2.932.833 [id number] [facility]i 00:00:00 00:00:[address] 3.430.2.7 0.2.7.3.698 Ho spita .3.249022 084.8 l .8 2022-06-11 2022-06-11 Travel 1.2.840.1 1.2.059.514 [id number] [facility] 00:00:00 00:00:[address] 3.430.2.7 0.2.7.3.698 Ho spita .3.718316 084.8 l .8 2022-05-26 2022-05-26 Outpatient [facility] [id number] [place] 00:00:00 00:00:00 [facility] 2022-05-25 2022-05-25 [facility] [id number] [place] 00:00:00 00:00:00 [facility] 2022-05-25 2022-05-25 Outpatient [facility] [id number] [facility] 00:00:00 00:00:00 _Diggs_R [id number] Medic al 2022-05-13 2022-05-13 [facility] [id number] [place] 08:26:30 11:29:53 [facility] 2022-05-01 2022-05-01 Outpatient [facility] [id number] [place] 00:00:00 00:00:00 [facility] 2022-04-14 2022-04-14 Outpatient [facility] [id number] [place] 00:00:00 00:00:00 [facility] 2022-04-14 2022-04-14 [facility] [id number] [place] 00:00:00 00:00:00 [facility] 2022-04-08 2022-04-08 Outpatient [facility] PRIV [id number] [facility] 00:00:00 00:00:00 _Diggs_R [id number] Medic al 2022-04-08 2022-04-08 Kaycee [facility] 10 [facility] 00:00:00 00:00:00 Donta [facility] - Medic mo AIRPORT SCREENER: [id number] _[facility]AN[facility] _[facility] [address], [place] [address] , Ph. 2022-04-08 2022-04-08 Outpatient Donta [facility] PRIV [id number]-1 00:00:00 00:00:00 Kaycee [id number] 2022-04-06 2022-04-06 Outpatient [facility] [id number] [place] 13:48:21 14:32:31 [facility] 2022-03-31 2022-03-31 Outpatient [facility] [id number] [place] 00:00:00 00:00:00 [facility] 2022-03-19 2022-03-19 [facility] [id number] Memoria 03:20:40 07:05:00 liang Demarco 02 [facility] 2022-03-19 2022-03-19 Emergency [facility] [id number] Memoria 03:20:40 07:05:00 liang Demarco 02 [facility] 2022-03-18 2022-03-19 Outpatient Bruce, ALLENPL MHPL [id number] 22:20:40 02:05:00 Thania Roshan [facility] 2022-03-18 2022-03-19 Emergency E BOLANOS, MHBL MHBL [id number] MHBL 22:20:00 02:05:00 REEVA 2022-03-14 2022-03-14 [facility] [id number] Memoria 00:15:07 05:00:00 liang Demarco 01 [facility] 2022-03-14 2022-03-14 Emergency [facility] [id number] Memoria 00:15:07 05:00:00 liang Demarco 01 [facility] 2022-03-13 2022-03-14 Outpatient JUAN Thomas MHPL [id number] 19:15:07 00:00:00 Sukhwinder 01 Merry 2022-03-13 2022-03-14 Outpatient JUAN ThomasPL [id number] 19:15:07 00:00:00 Abdiwahab 01 Sousa 2022-03-13 2022-03-14 Emergency E MOHAMED, MHBL MHBL [id number] MHBL 19:15:00 00:00:00 ABDIWAHAB 2022-03-11 2022-03-11 Outpatient MARY JO BELCHER [id number] [place] 11:25:00 11:25:00 PIETRO 0713 [facility] 2022-02-24 2022-02-24 [facility] [id number] [place] 09:53:24 10:41:58 [facility] 2022-02-24 2022-02-24 Outpatient [facility] [id number] [place] 10:34:06 10:41:26 [facility] 2022-02-23 2022-02-24 Outpatient SHILPA, [facility] [id number] [place] 14:37:42 07:15:27 [facility] 2022-02-24 2022-02-24 [facility] [id number] [place] 00:00:00 00:00:00 [facility] 2022-02-10 2022-02-10 [facility] [id number] [place] 00:00:00 00:00:00 [facility] 2022-02-10 2022-02-10 [facility] [id number] [place] 00:00:00 00:00:00 [facility] 2022-02-05 2022-02-06 [id number] [place] 23:16:00 01:00:00 [facility] 2022-02-05 2022-02-06 Emergency 1 [facility] [id number] [place] 23:16:00 01:00:00 [facility] 2022-02-05 2022-02-05 Emergency [facility] [id number] [place] 23:32:16 23:55:28 [facility] 2022-02-05 2022-02-05 Emergency HERMES, [facility] [id number] [place] 21:30:24 21:41:51 [facility] 2022-02-04 2022-02-04 [facility] [id number] [place] 13:16:26 14:54:03 SUJOYEETA [facility] 2022-01-20 2022-01-20 Outpatient ABOUGHALI, [facility] [id number] [place] 08:08:28 09:07:11 [facility] 2022-01-20 2022-01-20 Outpatient [facility] [id number] [place] 08:40:24 08:55:12 [facility] 2022-01-20 2022-01-20 Outpatient [facility] [id number] [place] 00:00:00 00:00:00 [facility] 2022-01-20 2022-01-20 Outpatient ABOUGHALI, [facility] [id number] [place] 00:00:00 00:00:00 [facility] 2022-01-02 2022-01-02 Outpatient KATHRYN ZELAYA [facility] [id number] [place] 00:00:00 00:00:00 [facility] 2021-12-30 2021-12-30 Outpatient NORBERTOALI, [facility] [id number] [place] 09:12:55 10:28:29 [facility] 2021-12-30 2021-12-30 Outpatient [facility] [id number] [place] 09:43:20 09:55:06 [facility] 2021-12-30 2021[facility]12-30 [facility] [id number] [place] 00:00:00 00:00:00 [facility] 2021-12-18 2021-12-18 Outpatient [facility]IV [id number] [facility] 11:17:00 11:17:00 _[facility]gs_R [id number] Medic al 2021-12-18 2021-12-18 Outpatient [facility]IV [id number] [facility] 11:17:00 11:17:00 _Diggs_R [id number] Medic al 2021-12-18 2021-12-18 Outpatient [facility] PRIV PRIV [id number] [facility] 11:17:00 11:17:00 _Diggs_R [id number] Medic al 2021-12-18 2021-12-18 Outpatient Longo, PRIV PRIV [id number] 00:00:00 00:00:00 Kaycee [id number] 2021-12-18 2021-12-18 [facility] 00:00:00 00:00:00 [facility], Health - Medic al AIRPORT SCREENER: [id number] [facility] _[facility] [address], [place] [address] , Ph. 2021-12-16 2021-12-16 Outpatient PERAZA, [facility] [id number] [place] 13:29:29 14:47:42 Health 2021-12-16 2021-12-16 [facility] 3 [facility] [id number] [place] 13:29:29 14:47:42 Health 2021-12-16 2021-12-16 Outpatient PERAZA, [facility] [id number] [place] 00:00:00 00:00:00 [facility] 2021-12-05 2021-12-05 [facility] Chloé, 1.2.840.1 [id number] Methodi 09:34:18 23:59:00 Encounter Laith 58677.1.1 729 s t Peter 3.430.2.7 Hospit a .3.096649 l .8 2021-12-05 2021-12-05 Travel 1.2.840.1 1.2.052.378 6684 [id number] Methodi 00:00:00 00:00:[address] 3.430.2.7 0.2.7.3.698 Ho spita .3.107087 084.8 l .8 2021-11-27 2021-11-27 Outpatient [facility] PRIV PRIV [id number] [facility] 01:52:00 01:52:00 _Diggs_R [id number] Medic al 2021-11-27 2021-11-27 Travel 1.2.840.1 1.2.344.279 7072 [id number] Methodi 00:00:00 00:00:[address] 3.430.2.7 0.2.7.3.698 Ho spita .3.045568 084.8 l .8 2021-11-27 2021-11-27 Transcribe Donta 1.2.840.1 [id number] Methodi 00:00:00 00:00:00 Orders Kaycee Higgins 57832.1.1 5 [facility].7 [facility] .8 2021-11-25 2021-11-25 Outpatient [facility] PRIV PRIV [id number] [facility] 05:22:00 05:22:00 _Diggs_R [id number] Medic al 2021-11-25 2021-11-25 [facility] [id number] [place] 00:00:00 00:00:00 [facility] 2021-11-25 2021-11-25 [facility] 00:00:00 00:00:00 [facility] Medic al 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 2021-11-25 2021-11-25 Outpatient Donta, PRIV PRIV [id number] 00:00:00 00:00:00 Kaycee fa4-11ec-a [id number] 2021-11-24 2021-11-24 Outpatient [facility] PRIV PRIV [id number] [facility] 09:14:00 09:14:00 _Diggs_R [id number] Medic al 2021-11-12 2021-11-12 Outpatient [facility] PRIV PRIV [id number] [facility] 10:32:00 10:32:00 _Diggs_R [id number] Medic al 2021-11-11 2021-11-11 [facility] [id number] [place] 15:32:00 17:59:00 [facility] 2021-11-11 2021-11-11 [facility] [id number] [place] 09:22:13 10:07:10 [facility] 2021-11-11 2021-11-11 Outpatient [facility] [id number] [place] 09:43:27 09:47:12 [facility] 2021-11-11 2021-11-11 [place] [id number] [place] 00:00:00 00:00:00 [facility] 2021-11-08 2021-11-09 Emergency Timur 1.2.840.1 [id number] Methodi 21:17:00 03:19:00 Gabriella damon 37287.1.1 991 3.430.2.7 Hospit a .3.175852 l .8 2021-10-27 2021-10-27 [place]patient [place] [id number] [place] 15:38:32 16:13:58 [facility] 2021-10-27 2021-10-27 Outpatient [facility] [id number] [place] 15:28:33 15:53:26 [facility] 2021-10-27 2021-10-27 [facility] [id number] [place] 15:00:16 15:00:16 [facility] 2021-10-27 2021-10-27 [facility] [id number] [place] 00:00:00 00:00:00 [facility] 2021-10-27 2021-10-27 [facility] [id number] [place] 00:00:00 00:00:00 [facility] 2021-09-14 2021-09-14 Emergency NAHOMY GABRIELLA [facility] [id number] [place] 00:00:00 00:00:[address] 2021-08-22 2021-08-22 Emergency SAIGE [facility] [id number] [place] 00:00:00 00:00:00 CASH [address] 2021-07-22 2021-07-22 Outpatient [facility] [id number] [place] 00:00:00 00:00:00 [facility] 2021-07-17 2021-07-17 [facility] [id number] [place] 07:38:50 15:27:52 [facility] 2021-05-16 2021-05-16 [facility] [id number] [place] 12:55:35 13:20:54 [facility] 2021-04-03 2021-04-03 [facility] [id number] [place] 10:24:01 11:40:13 [facility] 2021-04-03 2021-04-03 Outpatient NORBERTOALI, [facility] [id number] [place] 11:20:44 11:27:55 [facility] 2021-04-03 2021-04-03 Outpatient SUZETTE, [facility] [id number] [place] 00:00:00 00:00:00 [facility] 2021-02-10 2021-02-10 Outpatient SUZETTE, [facility] [id number] [place] 07:38:38 14:43:22 [facility] 2021-01-20 2021-01-21 [facility] [id number] [place] 21:01:36 01:40:00 r [place] 00 [facility] 2021-01-20 2021-01-21 Emergency [facility] [id number] [place] 21:01:36 01:40:00 r [place] 00 [facility] 2021-01-20 2021-01-20 Outpatient Paul, [facility] [id number] 16:01:36 20:40:00 Domingo Guzman 2021-01-20 2021-01-20 Emergency E PAUL, [facility] [id number] [facility] 16:01:00 20:40:00 DOMINGO 2021-01-20 2021-01-20 Outpatient SUZETTE, [facility] [id number] [place] 10:49:10 12:23:17 [facility] 2021-01-20 2021-01-20 Outpatient [facility] [id number] [place] 11:36:48 11:56:15 [facility] 2021-01-09 2021-01-09 [facility] [id number] [place] 11:01:40 13:18:27 [facility] 2021-01-02 2021-01-02 Emergency MARINO, [facility] [id number] [place] 00:00:00 00:00:00 MICHELLE [address] 2020-12-25 2020-12-25 Outpatient LAKESHIA [facility] [id number] [place] 00:00:00 00:00:00 [facility] 2020-12-25 2020-12-25 Outpatient YING GALVAN [facility] [id number] [place] 00:00:00 00:00:00 [facility] 2020-12-10 2020-12-10 Outpatient TATO CONNOLLY [facility] [id number] [place] 00:00:00 00:00:00 [facility] 2020-11-28 2020-11-28 Outpatient ANDREWABNER INTERIANO [facility] [id number] [place] 09:52:10 10:35:59 Health 2020-11-28 2020-11-28 [facility] [id number] [place] 08:52:57 09:35:01 [facility] 2020-11-28 2020-11-28 [facility] [id number] [place] 00:00:00 00:00:00 [facility] 2020-11-26 2020-11-26 Outpatient LAKESHIA [facility] [id number] [place] 10:26:31 12:37:58 Y, GÓMEZ [facility] 2020-11-26 2020-11-26 Outpatient LAKESHIA [facility] [id number] [place] 00:00:00 00:00:00 Y, GÓMEZ [facility] 2020-11-22 2020-11-22 [facility] [id number] [place] 09:06:46 09:06:46 [facility] 2020-11-21 2020-11-21 [facility] [id number] [place] 00:00:00 00:00:00 [facility] 2020-11-21 2020-11-21 [facility] [id number] [place] 00:00:00 00:00:00 [facility] 2020-11-18 2020-11-18 [facility] [id number] [place] 07:34:19 14:53:54 [facility] 2020-11-14 2020-11-14 [facility] [id number] [place] 00:00:00 00:00:00 [facility] 2020-11-12 2020-11-12 [facility] [id number] [place] 19:20:48 23:59:00 [facility] 2020-11-07 2020-11-07 [facility] [id number] [place] 10:15:36 16:17:47 [facility] 2020-11-07 2020-11-07 [facility] [id number] [place] 00:00:00 00:00:00 [facility] 2020-11-06 2020-11-06 Outpatient ANDREW [facility] [id number] [place] 09:10:44 09:31:28 [facility] 2020-11-06 2020-11-06 Outpatient ANDREW, [facility] [id number] [place] 09:03:03 09:13:38 [facility] 2020-11-06 2020-11-06 Outpatient ANDREW, [facility] [id number] [place] 00:00:00 00:00:00 [facility] 2020-11-06 2020-11-06 Outpatient JOAN, [facility] [id number] [place] 00:00:00 00:00:00 [facility] 2020-11-04 2020-11-04 [facility] [id number] [place] 07:18:00 08:55:00 [facility] 2020-10-31 2020-10-31 [facility] [id number] [place] 00:00:00 00:00:00 [facility] 2020-10-24 2020-10-24 [facility] [id number] [place] 08:03:09 08:03:09 [facility] 2020-10-23 2020-10-23 Outpatient LAKESHIA [facility] [id number] [place] 07:29:24 12:11:59 Y, GÓMEZ [facility] 2020-10-23 2020-10-23 Outpatient TORO, [facility] [id number] [place] 00:00:00 00:00:00 [facility] 2020-10-23 2020-10-23 Outpatient [facility] [id number] [place] 00:00:00 00:00:00 [facility] 2020-10-17 2020-10-17 [facility] [id number] [place] 00:00:00 00:00:00 [facility] 2020-10-10 2020-10-10 [facility] [id number] [place] 07:17:49 15:53:36 [facility] 2020-10-03 2020-10-03 [facility] [id number] [place] 07:29:37 07:29:37 [facility] 2020-09-26 2020-09-26 [facility] [id number] [place] 07:11:20 07:11:20 DIPAK [facility] 2020-07-24 2020-07-24 [facility] [id number] [place] 00:00:00 00:00:00 VICTORIA [facility] 2020-01-25 2020-01-25 Emergency SAIGE, [facility] [id number] [place] 00:00:00 00:00:00 CASH Santiago i 2019-11-01 2019-11-01 Outpatient [facility] [id number] [place] 00:00:00 00:00:00 [facility] 2019-10-19 2019-10-19 Outpatient [facility] [id number] [place] 00:00:00 00:00:00 [facility] 2019-10-11 2019-10-11 Outpatient [facility] [id number] [place] 00:00:00 00:00:00 [facility] 2019-09-28 2019-09-28 Outpatient [facility] [id number] [place] 00:00:00 00:00:00 Health 2019-09-22 2019-09-22 Outpatient [facility] [id number] [place] 00:00:00 00:00:00 Health 2019-09-22 2019-09-22 Outpatient [facility] [id number] [place] 00:00:00 00:00:00 [facility] 2019-09-08 2019-09-08 Outpatient [facility] [id number] [place] 00:00:00 00:00:00 [facility] 2019-09-06 2019-09-06 Outpatient [facility] [id number] [place] 00:00:00 00:00:00 Health 2019-08-29 2019-08-29 Outpatient [facility] [id number] [place] 08:07:37 08:07:37 Health 2019-08-11 2019-08-11 Outpatient [facility] [id number] [place] 14:34:35 14:34:35 Health 2019-08-11 2019-08-11 Outpatient [facility] [id number] [place] 14:10:42 14:10:42 Health 2019-08-11 2019-08-11 Outpatient [facility] [id number] [place] 00:00:00 00:00:00 Health 2019-08-03 2019-08-03 Outpatient [facility] [id number] [place] 10:45:43 10:45:43 Health 2019-08-01 2019-08-01 Outpatient [facility] [id number] [place] 08:17:31 08:17:31 [facility] 2019-07-12 2019-07-12 Outpatient [facility] [id number] [place] 13:34:12 13:34:12 [facility] 2019-07-10 2019-07-10 Outpatient [facility] [id number] [place] 10:18:59 10:18:59 [facility] 2019-07-10 2019-07-10 Outpatient [facility] [id number] [place] 09:23:42 09:23:42 [facility] 2019-07-10 2019-07-10 Outpatient [facility] [id number] [place] 00:00:00 00:00:00 [facility] 2019-07-05 2019-07-05 Outpatient [facility] [id number] [place] 00:00:00 00:00:00 [facility] 2019-06-21 2019-06-21 Outpatient [facility] [id number] [place] 14:43:36 14:43:36 [facility] 2019-05-31 2019-05-31 Outpatient [facility] [id number] [place] 09:01:41 09:01:41 [facility] 2019-05-31 2019-05-31 Outpatient [facility] [id number] [place] 00:00:00 00:00:00 [facility] 2019-04-21 2019-04-21 Outpatient [facility] [id number] [place] 00:00:00 00:00:00 [facility] 2019-04-14 2019-04-14 Outpatient [facility] [id number] [place] 14:55:03 14:55:03 [facility] 2019-04-07 2019-04-07 Outpatient [facility] [id number] [place] 00:00:00 00:00:00 [facility] 2019-04-07 2019-04-07 Outpatient [facility] [id number] [place] 00:00:00 00:00:00 [facility] 2019-04-07 2019-04-07 Outpatient [facility] [id number] [place] 00:00:00 00:00:00 [facility] 2019-04-06 2019-04-06 Outpatient [facility] [id number] [place] 00:00:00 00:00:00 [facility] 2019-04-05 2019-04-05 Outpatient [facility] [id number] [place] 00:00:00 00:00:00 [facility] 2019-03-29 2019-03-29 Outpatient [facility] [id number] [place] 15:23:28 15:23:28 [facility] 2019-03-28 2019-03-28 Outpatient [facility] [id number] [place] 16:10:03 16:10:03 [facility] 2019-03-28 2019-03-28 Outpatient [facility] [id number] [place] 14:56:12 14:56:12 [facility] 2019-03-28 2019-03-28 Outpatient [facility] [id number] [place] 00:00:00 00:00:00 [facility] 2019-03-24 2019-03-24 Outpatient [facility] [id number] [place] 15:03:38 15:03:38 [facility] 2019-03-10 2019-03-10 Outpatient [facility] [id number] [place] 00:00:00 00:00:00 [facility] 2019-03-09 2019-03-09 Outpatient [facility] [id number] [place] 14:32:57 14:32:57 [facility] 2019-03-03 2019-03-03 Outpatient [facility] [id number] [place] 13:53:33 13:53:33 [facility] 2019-02-23 2019-02-23 Outpatient [facility] [id number] [place] 13:41:45 13:41:45 [facility] 2019-02-16 2019-02-16 Outpatient [facility] [id number] [place] 14:30:15 14:30:15 [facility] 2019-02-09 2019-02-09 Outpatient [facility] [id number] [place] 00:00:00 00:00:00 [facility] 2019-01-18 2019-01-18 Outpatient [facility] [id number] [place] 15:15:44 15:15:44 [facility] 2019-01-11 2019-01-11 Outpatient [facility] [id number] [place] 00:00:00 00:00:00 [facility] 2019-01-04 2019-01-04 Outpatient [facility] [id number] [place] 00:00:00 00:00:00 [facility] 2019-01-02 2019-01-02 Outpatient [facility] [id number] [place] 10:29:45 10:29:45 [facility] 2018-12-20 2018-12-20 Outpatient [facility] [id number] [place] 14:29:22 14:29:22 [facility] 2018-12-12 2018-12-12 Outpatient [facility] [id number] [place] 00:00:00 00:00:00 [facility] 2018-12-07 2018-12-07 Outpatient [facility] [id number] [place] 00:00:00 00:00:00 [facility] 2018-11-18 2018-11-18 Outpatient [facility] [id number] [place] 00:00:00 00:00:00 [facility] 2018-10-27 2018-10-27 Outpatient [facility] [id number] [place] 00:00:00 00:00:00 [facility] 2018-10-25 2018-10-25 Outpatient [facility] [id number] [place] 09:12:01 09:12:01 [facility] 2018-10-25 2018-10-25 Outpatient [facility] [id number] [place] 00:00:00 00:00:00 [facility] 2018-09-29 2018-09-29 Outpatient [facility] [id number] [place] 11:41:40 11:41:40 [facility] 2018-09-22 2018-09-22 Outpatient [facility] [id number] [place] 00:00:00 00:00:00 [facility] 2018-09-21 2018-09-21 Outpatient [facility] [id number] [place] 13:17:51 13:17:51 [facility] 2018-08-08 2018-08-08 Outpatient [facility] [id number] [place] 15:08:56 15:08:56 [facility] 2018-08-08 2018-08-08 Outpatient [facility] [id number] [place] 13:50:11 13:50:11 [facility] 2018-04-20 2018-04-20 Outpatient [facility] [id number] [place] 00:00:00 00:00:00 [facility] 2018-04-11 2018-04-11 Outpatient [facility] [id number] [place] 00:00:00 00:00:00 [facility] 2018-03-24 2018-03-24 Outpatient [facility] [id number] [place] 14:30:08 14:30:08 [facility] 2018-03-11 2018-03-11 Outpatient [facility] [id number] [place] 08:59:56 08:59:56 [facility] 2018-03-09 2018-03-09 Outpatient [facility] [id number] [place] 15:10:05 15:10:05 [facility] 2018-02-25 2018-02-25 Outpatient [facility] [id number] [place] 00:00:00 00:00:00 [facility] 2018-02-22 2018-02-22 Outpatient [facility] [id number] [place] 09:47:44 09:47:44 [facility] 2018-02-01 2018-02-01 Outpatient [facility] [id number] [place] 15:31:00 15:31:00 [facility] 2018-02-01 2018-02-01 Outpatient [facility] [id number] [place] 00:00:00 00:00:00 [facility] 2018-01-28 2018-01-28 Outpatient [facility] [id number] [place] 14:25:09 14:25:09 [facility] 2018-01-13 2018-01-13 Outpatient [facility] [id number] [place] 00:00:00 00:00:00 [facility] 2018-01-07 2018-01-07 Outpatient [facility] [id number] [place] 00:00:00 00:00:00 [facility] 2018-01-06 2018-01-06 Outpatient [facility] [id number] [place] 08:49:34 08:49:34 [facility] 2018-01-03 2018-01-03 Outpatient [facility] [id number] [place] 09:36:54 09:36:54 [facility] 2017-12-23 2017-12-23 Outpatient [facility] [id number] [place] 09:40:46 09:40:46 [facility] 2017-12-09 2017-12-09 Outpatient [facility] [id number] [place] 15:13:23 15:13:23 [facility] 2017-11-25 2017-11-25 Outpatient [facility] [id number] [place] 00:00:00 00:00:00 [facility] 2017-11-24 2017-11-24 Outpatient [facility] [id number] [place] 15:38:59 15:38:59 [facility] 2017-11-24 2017-11-24 Outpatient [facility] [id number] [place] 00:00:00 00:00:00 [facility] 2017-11-22 2017-11-22 Outpatient [facility] [id number] [place] 15:36:55 15:36:55 [facility] 2017-11-17 2017-11-17 Outpatient [facility] [id number] [place] 00:00:00 00:00:00 [facility] 2017-11-11 2017-11-11 Outpatient [facility] [id number] [place] 14:05:46 14:05:46 [facility] 2017-11-10 2017-11-10 Outpatient [facility] [id number] [place] 00:00:00 00:00:00 [facility] 2017-11-03 2017-11-03 Outpatient [facility] [id number] [place] 00:00:00 00:00:00 [facility] 2017-10-27 2017-10-27 Outpatient [facility] [id number] [place] 00:00:00 00:00:00 [facility] 2017-10-20 2017-10-20 Outpatient [facility] [id number] [place] 00:00:00 00:00:00 [facility] 2017-10-13 2017-10-13 Outpatient [facility] [id number] [place] 00:00:00 00:00:00 [facility] 2017-10-08 2017-10-08 Outpatient [facility] [id number] [place] 13:12:58 13:12:58 [facility] 2017-10-08 2017-10-08 Outpatient [facility] [id number] [place] 00:00:00 00:00:00 [facility] 2017-10-04 2017-10-04 Outpatient [facility] [id number] [place] 00:00:00 00:00:00 [facility] 2017-10-01 2017-10-01 Outpatient [facility] [id number] [place] 16:05:17 16:05:17 [facility] 2017-10-01 2017-10-01 Outpatient [facility] [id number] [place] 15:08:55 15:08:55 [facility] 2017-09-09 2017-09-09 Outpatient [facility] [id number] [place] 09:51:17 09:51:17 [facility] 2017-09-08 2017-09-08 Outpatient [facility] [id number] [place] 14:31:52 14:31:52 [facility] 2017-07-28 2017-07-28 Outpatient [facility] [id number] [place] 09:51:18 09:51:18 [facility] 2017-07-18 2017-07-18 Emergency [facility] [id number] [place] 14:53:14 14:53:14 [facility] 2017-07-18 2017-07-18 Inpatient [facility] [id number] [place] 12:13:57 12:13:57 [facility] 2017-07-07 2017-07-07 Outpatient [facility] [id number] [place] 14:50:08 14:50:08 [facility] 2017-06-11 2017-06-11 Outpatient [facility] [id number] [place] 13:28:35 13:28:35 [facility] 2017-06-10 2017-06-10 Outpatient [facility] [id number] [place] 15:39:29 15:39:29 [facility] 2017-06-08 2017-06-08 Outpatient [facility] [id number] [place] 13:05:47 13:05:47 [facility] 2017-06-04 2017-06-04 Outpatient [facility] [id number] [place] 12:40:45 12:40:45 [facility] 2017-06-03 2017-06-03 Outpatient [facility] [id number] [place] 00:00:00 00:00:00 [facility] 2017-06-01 2017-06-01 Outpatient [facility] [id number] [place] 12:36:26 12:36:26 [facility] 2017-05-14 2017-05-14 Outpatient [facility] [id number] [place] 08:24:03 08:24:03 [facility] 2017-05-14 2017-05-14 Outpatient [facility] [id number] [place] 07:23:07 07:23:07 [facility] 2017-04-30 2017-04-30 Outpatient [facility] [id number] [place] 00:00:00 00:00:00 [facility] 2017-04-26 2017-04-26 Outpatient [facility] [id number] [place] 00:00:00 00:00:00 [facility] 2017-04-14 2017-04-14 Outpatient [facility] [id number] [place] 10:24:05 10:24:05 [facility] 2017-04-08 2017-04-08 Outpatient [facility] [id number] [place] 00:00:00 00:00:00 [facility] 2017-04-07 2017-04-07 Outpatient [facility] [id number] [place] 14:24:22 14:24:22 [facility] 2017-04-02 2017-04-02 Outpatient [facility] [id number] [place] 00:00:00 00:00:00 [facility] 2017-03-30 2017-03-30 Outpatient [facility] [id number] [place] 00:00:00 00:00:00 [facility] 2017 2017 Outpatient [facility] [id number] [place] 11:11:06 11:11:06 [facility] 2017-03-12 2017-03-12 Outpatient [facility] [id number] [place] 13:12:40 13:12:40 [facility] 2017-02-19 2017-02-19 Outpatient [facility] [id number] [place] 00:00:00 00:00:00 [facility] 2017-02-03 2017-02-03 Outpatient [facility] [id number] [place] 14:38:51 14:38:51 [facility] 2017-01-18 2017-01-18 Outpatient [facility] [id number] [place] 00:00:00 00:00:00 [facility] 2017-01-13 2017-01-13 Outpatient [facility] [id number] [place] 00:00:00 00:00:00 [facility] 2016-12-30 2016-12-30 Outpatient [facility] [id number] [place] 08:21:55 08:21:55 [facility] 2016-12-28 2016-12-28 Outpatient [facility] [id number] [place] 13:12:13 13:12:13 [facility] 2016-12-16 2016-12-16 Outpatient [facility] [id number] [place] 12:31:42 12:31:42 [facility] 2016-12-14 2016-12-14 Outpatient [facility] [id number] [place] 00:00:00 00:00:00 [facility] 2016-11-30 2016-11-30 Outpatient [facility] [id number] [place] 13:19:09 13:19:09 [facility] 2016-11-26 2016-11-26 Outpatient [facility] [id number] [place] 13:39:33 13:39:33 [facility] 2016-11-26 2016-11-26 Outpatient [facility] [id number] [place] 13:37:06 13:37:06 [facility] 2016-11-23 2016-11-23 Outpatient [facility] [id number] [place] 13:27:22 13:27:22 [facility] 2016-11-16 2016-11-16 Outpatient [facility] [id number] [place] 08:29:28 08:29:28 [facility] 2016-11-06 2016-11-06 Outpatient [facility] [id number] [place] 14:10:51 14:10:51 [facility] 2016-10-13 2016-10-13 Outpatient [facility] [id number] [place] 11:00:58 11:00:58 [facility] 2016-10-08 2016-10-08 Outpatient [facility] [id number] [place] 12:56:54 12:56:54 [facility] 2016-10-08 2016-10-08 Outpatient [facility] [id number] [place] 12:49:38 12:49:38 [facility] 2016-10-07 2016-10-07 Outpatient [facility] [id number] [place] 15:36:29 15:36:29 [facility] 2016-10-07 2016-10-07 Outpatient [facility] [id number] [place] 14:16:34 14:16:34 Health 2016-09-30 2016-09-30 Outpatient [facility] [id number] [place] 09:07:30 09:07:30 [facility] 2016-09-11 2016-09-11 Outpatient [facility] [id number] [place] 11:28:30 11:28:30 Health 2016-08-22 2016-08-22 Emergency [facility] [id number] [place] 22:23:29 22:23:29 Health 2016-08-22 2016-08-22 Emergency [facility] [id number] [place] 19:44:23 19:44:23 Health 2016-08-22 2016-08-22 Emergency [facility] [id number] [place] 19:17:50 19:17:50 Health 2016-08-22 2016-08-22 Emergency [facility] [id number] [place] 19:15:09 19:15:09 [facility] 2015-09-18 2015-09-19 [facility] [id number] [facility] 00:04:00 22:29:00 r [place] 04 [facility] 2015-09-18 2015-09-19 [facility] [id number] [facility] 00:04:00 22:29:00 r Dav 04 [facility] 2015-09-17 2015-09-19 Outpatient JANICE Flannery MHSE [id number] 18:04:00 16:29:00 [place] [address] 2015-08-26 2015-08-26 [facility] [id number] [facility] 16:33:00 22:17:00 Emergency r Dav 03 [facility] 2015-08-26 2015-08-26 [facility] [id number] [facility] 16:33:00 22:17:00 Emergency r Dav 03 [facility] 2015-08-26 2015-08-26 Outpatient Riaz, MHSE MHSE [id number] 10:33:00 16:17:00 Natocaridad Mcqueen 2015-08-15 2015-08-16 [facility] [id number] [facility] 11:50:00 22:33:00 r Dav 02 [facility] 2015-08-15 2015-08-16 [facility] [id number] [facility] 11:50:00 22:33:00 r [place] 02 [facility] 2015-08-15 2015-08-16 Outpatient Tommy Del Toro MHSE MHSE [id number] 05:50:00 16:33:00 [place] 02 2015-06-24 2015-07-24 [facility] [id number] [facility] 20:15:00 05:59:00 Recurring r Dav 01 [facility] 2015-06-24 2015-07-24 [facility] [id number] [facility] 20:15:00 05:59:00 Recurring r [place] 01 l [facility] 2015-06-24 2015-07-23 Outpatient Mcclendon, MHSE MHSE [id number] 15:15:00 23:59:00 Sam W 2015-06-24 2015-06-25 [facility] [id number] [facility] 14:21:00 04:59:00 r [place] 01 l [facility] 2015-06-24 2015-06-25 [facility] [id number] [facility] 14:21:00 04:59:00 r [place] 01 l [facility] 2015-06-24 2015-06-24 Outpatient [place], MHSE MHSE [id number] 09:21:00 23:59:00 Sam W 2015-05-23 2015-06-22 [facility] [id number] [facility] 15:41:00 04:59:00 Recurring r [place] 00 l [facility] 2015-05-23 2015-06-22 [facility] [id number] [facility] 15:41:00 04:59:00 Recurring r [place] 00 l [facility] 2015-05-23 2015-06-21 Outpatient [place], MHSE MHSE [id number] 10:41:00 23:59:00 Sam W 2015-06-10 2015-06-10 [facility] [id number] [facility] 11:23:00 14:36:00 Outpatient r [place] 00 l [facility] 2015-06-10 2015-06-10 [facility] [id number] [facility] 11:23:00 14:36:00 Outpatient r Dav 00 l [facility] 2015-06-10 2015-06-10 Outpatient [place], MHSE MHSE [id number] 06:23:00 09:36:00 Sam W 00 Results Test Description Test Time Test Comments Results Result Comments Source CHEM PANEL 2022-03-19 05:01:00 Test Item Value Reference Range Interpretation Comme nts B/C Ratio (test code = B/C Ratio) 22 1 6- [facility]2022-07-21 05:01:00 Test Item Value Reference Range Interpretation Comments Globulin (test code = Globulin) 3.5 2.7-4.2 [facility]2022-07-21 05:01:00 Test Item Value Reference Range Interpretation Comments A/G Ratio (test code = A/G Ratio) 1.1 1 0.7-1.6 [facility]2022-07-21 05:01:00 Test Item Value Reference Range Interpretation Comments eGFR (test code = eGFR) 112 [facility]morpoaAJZCJLFVLB2596-27-53 05:01:00 Test Item Value Reference Range Interpretation Comments WBC (test code = WBC) 6.4 3.7-10.4 [facility] LGYRYWT3965[facility]54 05:01:00 Test Item Value Reference Range Interpretation Comments HS Troponin I (test code = HS Troponin 5 I) [facility]2022-07-21 05:01:00 Test Item Value Reference Range Interpretation Comments Glucose Lvl (test code = Glucose Lvl) 96 70-99 [facility]2022-07-21 05:01:00 Test Item Value Reference Range Interpretation Comments BUN (test code = BUN) 16 7-22 [facility]OyrrmfeGDHFXXAOYD7627-85-46 05:01:00 Test Item Value Reference Range Interpretation Comments RBC (test code = RBC) 5.28 4.20-5.40 [facility]2022-07-21 05:01:00 Test Item Value Reference Range Interpretation Comments Creatinine Lvl (test code = Creatinine 0.73 0.50-1.40 Lvl) [facility]2022-07-21 05:01:00 Test Item Value Reference Range Interpretation Comments Sodium Lvl (test code = Sodium Lvl) 141 135-145 [facility]2022-07-21 05:01:00 Test Item Value Reference Range Interpretation Comments Potassium Lvl (test code = Potassium 3.6 3.5-5.1 Lvl) [facility]2022-07-21 05:01:00 Test Item Value Reference Range Interpretation Comments Chloride Lvl (test code = Chloride Lvl) 110 95-109 [facility]2022-07-21 05:01:00 Test Item Value Reference Range Interpretation Comments CO2 (test code = CO2) 25 24-32 [facility]2022-07-21 05:01:00 Test Item Value Reference Range Interpretation Comments Calcium Lvl (test code = Calcium Lvl) 9.3 8.5-10.5 [facility]2022-07-21 05:01:00 Test Item Value Reference Range Interpretation Comments Total Protein (test code = Total 7.2 6.4-8.4 Protein) [place] 506842-07-21 05:01:00 Test Item Value Reference Range Interpretation Comments Albumin Lvl (test code = Albumin Lvl) 3.7 3.5-5.0 [place] 506842-07-21 05:01:00 Test Item Value Reference Range Interpretation Comments ALT (test code = ALT) 59 See_Comment [Auto mated message] The system which ge nerated this result transmit arivnd reference range : <=65. The reference range was not used to interpr et this result as mario l/abnormal. [place] 506842-07-21 05:01:00 Test Item Value Reference Range Interpretation Comments AST (test code = AST) 24 See_Comment [Auto mated message] The system which ge nerated this result transmit arvind reference range : <=37. The reference range was not used to interpr et this result as mario l/abnormal. [facility]CilntydTXAMPNAAGW2048-81-88 05:01:00 Test Item Value Reference Range Interpretation Comments Hgb (test code = Hgb) 14.1 12.0-16.0 [place] 506842-07-21 05:01:00 Test Item Value Reference Range Interpretation Comments Alk Phos (test code = Alk Phos) 60 39-136 [facility]2022-07-21 05:01:00 Test Item Value Reference Range Interpretation Comments Bili Total (test code = Bili Total) 0.2 0.2-1.3 [facility]2022-07-21 05:01:00 Test Item Value Reference Range Interpretation Comments AGAP (test code = AGAP) 9.6 10.0-20.0 [place] 506842-07-21 05:01:00 Test Item Value Reference Range Interpretation Comments B/C Ratio (test code = B/C Ratio) 22 1 6-25 [place] 506842-07-21 05:01:00 Test Item Value Reference Range Interpretation Comments Globulin (test code = Globulin) 3.5 2.7-4.[address] [facility] TRWZY7584-27-01 05:01:00 Test Item Value Reference Range Interpretation Comments A/G Ratio (test code = A/G Ratio) 1.1 1 0.7-1.[address] [facility] CLGJH4400-21-43 05:01:00 Test Item Value Reference Range Interpretation Comments eGFR (test code = eGFR) 112 [facility] HospitalEdzuixyRTVDGDOORS6006-31-42 05:01:00 Test Item Value Reference Range Interpretation Comments WBC (test code = WBC) 6.4 3.7-10.4 [facility] HospitalJexfacgWUDFDPUWXE0806-74-79 05:01:00 Test Item Value Reference Range Interpretation Comments RBC (test code = RBC) 5.28 4.20-5.40 [facility] HospitalEnslzzgUNDNQDJEDD9783-26-84 05:01:00 Test Item Value Reference Range Interpretation Comments Hgb (test code = Hgb) 14.1 12.0-16.0 [facility] HospitalNapgnfuIIIPHNRKKE8396-73-29 05:01:00 Test Item Value Reference Range Interpretation Comments Hct (test code = Hct) 43.0 36.0-48.0 [facility] HospitalWnztezgKDTHRUUQKB4375-47-29 05:01:00 Test Item Value Reference Range Interpretation Comments Hct (test code = Hct) 43.0 36.0-48.0 [facility] HospitalRhzgdxeOMSKIOEEIE2710-87-04 05:01:00 Test Item Value Reference Range Interpretation Comments MCV (test code = MCV) 81.4 80.0-98.0 [facility] HospitalIknltpjUKJTYSPNBX6449-13-42 05:01:00 Test Item Value Reference Range Interpretation Comments MCH (test code = MCH) 26.7 pg 27.0-31.0 [facility] HospitalEizutzaRNXZBSUOAS4884-42-09 05:01:00 Test Item Value Reference Range Interpretation Comments MCHC (test code = MCHC) 32.9 32.0-36.0 [facility] HospitalPmtxvqbJYQRHNOGXR3924-65-00 05:01:00 Test Item Value Reference Range Interpretation Comments RDW (test code = RDW) 14.1 11.5-14.5 [facility] HospitalKrgyybxVAEIYGRJHE0273-47-79 05:01:00 Test Item Value Reference Range Interpretation Comments Platelet (test code = Platelet) 237 133-450 [facility] HospitalYnyqpspANHJFPUCDT9034-31-91 05:01:00 Test Item Value Reference Range Interpretation Comments MPV (test code = MPV) 9.1 7.4-10.4 [facility] HospitalQgdvmkxFSBGDVQMBV2845-54-38 05:01:00 Test Item Value Reference Range Interpretation Comments PT (test code = PT) 12.4 s 12.0-14.7 [facility] HospitalMdnwbeiPDIOOOYOSX4432-46-15 05:01:00 Test Item Value Reference Range Interpretation Comments INR (test code = INR) 0.93 1 0.85-1.17 [facility] HospitalPgzxehrFNWRAWNFIK9151-15-71 05:01:00 Test Item Value Reference Range Interpretation Comments PTT (test code = PTT) 26.5 s 22.9-35.8 [facility] HospitalUxwyfmfGPIUAMYBJL0914-56-91 05:01:00 Test Item Value Reference Range Interpretation Comments MCV (test code = MCV) 81.4 80.0-98.0 [facility] HospitalVwcgdypSMNMAKROAX0891-09-68 05:01:00 Test Item Value Reference Range Interpretation Comments Segs (test code = Segs) 40.0 45.0-75.0 [facility] HospitalUtsnwugMXRWCQLZWF6160-66-66 05:01:00 Test Item Value Reference Range Interpretation Comments Lymphocytes (test code = Lymphocytes) 49.7 20.0-40.0 [facility] HospitalJmlepyvVRGDLWKTZB2911-17-59 05:01:00 Test Item Value Reference Range Interpretation Comments Monocytes (test code = Monocytes) 8.5 2.0-12.0 [facility] HospitalXiovxzvNNFLIEETHH6250-11-39 05:01:00 Test Item Value Reference Range Interpretation Comments Eosinophils (test code = 1.0 See_Comment [A utomated message] The Eosinophils) system which ge nerated this result tra nsmitted reference range : <=4.0. The reference r kat was not used to int erpret this result as normal/abnormal . [facility] HospitalVgylrupGREGHUOOCF7924-52-97 05:01:00 Test Item Value Reference Range Interpretation Comments Basophils (test code = 0.8 See_Comment [Aut omated message] The Basophils) system which ge nerated this result tra nsmitted reference range : <=1.0. The reference r kat was not used to int erpret this result as normal/abnormal . [facility] HospitalDghxbyhNNDXAEQNVU8373-90-91 05:01:00 Test Item Value Reference Range Interpretation Comments Neutrophils # (test code = Neutrophils 2.5 1.5-8.1 #) [facility] HospitalGchlkiiQUHCMOYYTO8554-90-36 05:01:00 Test Item Value Reference Range Interpretation Comments Lymphocytes # (test code = Lymphocytes 3.2 1.0-5.5 #) [facility] HospitalVihrqgcHQDOMRNOQP3527-96-72 05:01:00 Test Item Value Reference Range Interpretation Comments Monocytes # (test code 0.5 See_Comment [Aut omated message] The = Monocytes #) system which generated this result tra nsmitted reference range : <=0.8. The reference r kat was not used to int erpret this result as normal/abnormal . [facility] HospitalVrjgdiuGLCWGZZWGM4113-66-13 05:01:00 Test Item Value Reference Range Interpretation Comments Eosinophils # (test code 0.1 See_Comment [A utomated message] The = Eosinophils #) system whic h generated this result tra nsmitted reference range : <=0.5. The reference r kat was not used to int erpret this result as normal/abnormal . [facility] HospitalZoqaumfPROSFTRPTP8039-99-25 05:01:00 Test Item Value Reference Range Interpretation Comments MCH (test code = MCH) 26.7 pg 27.0-31.0 [facility] HospitalDpxbzuyCBEHMAYWSU0958-79-88 05:01:00 Test Item Value Reference Range Interpretation Comments MCHC (test code = MCHC) 32.9 32.0-36.0 [place] 375092-07-21 05:01:00 Test Item Value Reference Range Interpretation Comments RDW (test code = RDW) 14.1 11.5-14.5 [facility] HospitalOybhkttJMQBYMGWTM2633-61-42 05:01:00 Test Item Value Reference Range Interpretation Comments Platelet (test code = Platelet) 237 133-450 [facility] HospitalMgutrtiJSDXNUZYMW2923-94-60 05:01:00 Test Item Value Reference Range Interpretation Comments MPV (test code = MPV) 9.1 7.4-10.4 [facility] HospitalRptiroqTRYRRBKRTU6092-56-06 05:01:00 Test Item Value Reference Range Interpretation Comments PT (test code = PT) 12.4 s 12.0-14.7 [place] 375092-07-21 05:01:00 Test Item Value Reference Range Interpretation Comments INR (test code = INR) 0.93 1 0.85-1.17 [facility] HospitalGksclitWKCAKFYQPS2547-31-86 05:01:00 Test Item Value Reference Range Interpretation Comments PTT (test code = PTT) 26.5 s 22.9-35.8 [facility] HospitalSxqalhyXIVMOYFMBS5030-60-48 05:01:00 Test Item Value Reference Range Interpretation Comments Segs (test code = Segs) 40.0 45.0-75.0 [facility] HospitalDhncnvwLZUSCCUUMG3489-10-07 05:01:00 Test Item Value Reference Range Interpretation Comments Lymphocytes (test code = Lymphocytes) 49.7 20.0-40.0 [facility] HospitalWvpnpbmZIPECKHFLW8160-37-11 05:01:00 Test Item Value Reference Range Interpretation Comments Monocytes (test code = Monocytes) 8.5 2.0-12.0 [facility] HospitalJwpjvcpHLTZSOFUFX5898-45-77 05:01:00 Test Item Value Reference Range Interpretation Comments Eosinophils (test code = 1.0 See_Comment [A utomated message] The Eosinophils) system which ge nerated this result tra nsmitted reference range : <=4.0. The reference r kat was not used to int erpret this result as normal/abnormal . [facility] HospitalZxzkgowGWMUSWAXDS6273-42-30 05:01:00 Test Item Value Reference Range Interpretation Comments Basophils (test code = 0.8 See_Comment [Aut omated message] The Basophils) system which ge nerated this result tra nsmitted reference range : <=1.0. The reference r kat was not used to int erpret this result as normal/abnormal . [facility] HospitalJceecjdPXHMOOIUYI6840-10-62 05:01:00 Test Item Value Reference Range Interpretation Comments Neutrophils # (test code = Neutrophils 2.5 1.5-8.1 #) [facility] HospitalKktsuytBVMWKPZHFF7977-08-96 05:01:00 Test Item Value Reference Range Interpretation Comments Lymphocytes # (test code = Lymphocytes 3.2 1.0-5.5 #) [facility] HospitalWjddvmlLISOLMHYSC0303-80-33 05:01:00 Test Item Value Reference Range Interpretation Comments Monocytes # (test code 0.5 See_Comment [Aut omated message] The = Monocytes #) system which generated this result tra nsmitted reference range : <=0.8. The reference r kat was not used to int erpret this result as normal/abnormal . [facility] CenterZqlwkakPZVQRMHZOK2484-15-61 05:01:00 Test Item Value Reference Range Interpretation Comments Eosinophils # (test code 0.1 See_Comment [A utomated message] The = Eosinophils #) system whic h generated this result tra nsmitted reference range : <=0.5. The reference r kat was not used to int erpret this result as normal/abnormal . [facility] KODUCYI6432-77-45 05:01:00 Test Item Value Reference Range Interpretation Comments HS Troponin I (test code = HS Troponin 5 I) [facility] HRJXU5407-09-22 05:01:00 Test Item Value Reference Range Interpretation Comments Glucose Lvl (test code = Glucose Lvl) 96 70-99 [facility]2022-07-21 05:01:00 Test Item Value Reference Range Interpretation Comments BUN (test code = BUN) 16 7-22 [facility]2022-07-21 05:01:00 Test Item Value Reference Range Interpretation Comments Creatinine Lvl (test code = Creatinine 0.73 0.50-1.40 Lvl) [facility]2022-07-21 05:01:00 Test Item Value Reference Range Interpretation Comments Sodium Lvl (test code = Sodium Lvl) 141 135-145 [facility]2022-07-21 05:01:00 Test Item Value Reference Range Interpretation Comments Potassium Lvl (test code = Potassium 3.6 3.5-5.1 Lvl) [facility]2022-07-21 05:01:00 Test Item Value Reference Range Interpretation Comments Chloride Lvl (test code = Chloride Lvl) 110 95-109 [facility]2022-07-21 05:01:00 Test Item Value Reference Range Interpretation Comments CO2 (test code = CO2) 25 24-32 [facility]2022-07-21 05:01:00 Test Item Value Reference Range Interpretation Comments Calcium Lvl (test code = Calcium Lvl) 9.3 8.5-10.5 [facility]2022-07-21 05:01:00 Test Item Value Reference Range Interpretation Comments Total Protein (test code = Total 7.2 6.4-8.4 Protein) [facility]2022-07-21 05:01:00 Test Item Value Reference Range Interpretation Comments Albumin Lvl (test code = Albumin Lvl) 3.7 3.5-5.0 [facility] O[facility]O8675-80-28 05:01:00 Test Item Value Reference Range Interpretation Comments ALT (test code = ALT) 59 See_Comment [Auto mated message] The system which ge nerated this result transmit arvind reference range : <=65. The reference range was not used to interpr et this result as mario l/abnormal. [facility] PYZMK6505-39-40 05:01:00 Test Item Value Reference Range Interpretation Comments AST (test code = AST) 24 See_Comment [Auto mated message] The system which ge nerated this result transmit arvind reference range : <=37. The reference range was not used to interpr et this result as mario l/abnormal. [facility] TWCZK0961-72-82 05:01:00 Test Item Value Reference Range Interpretation Comments Alk Phos (test code = Alk Phos) 60 39-136 [facility] XOEXV9678-31-48 05:01:00 Test Item Value Reference Range Interpretation Comments Bili Total (test code = Bili Total) 0.2 0.2-1.3 [facility] BMXCL2327-24-97 05:01:00 Test Item Value Reference Range Interpretation Comments AGAP (test code = AGAP) 9.6 10.0-20.0 [facility] [id number] 05:01:00 Test Item Value Reference Range Interpretation Comments B/C Ratio (test code = B/C Ratio) 22 1 6-25 [facility] DEFTB4451-87-04 05:01:00 Test Item Value Reference Range Interpretation Comments Globulin (test code = Globulin) 3.5 2.7-4.2 [facility] YPHVT8711-15-12 05:01:00 Test Item Value Reference Range Interpretation Comments A/G Ratio (test code = A/G Ratio) 1.1 1 0.7-1.6 [facility] WPVIR4797-06-42 05:01:00 Test Item Value Reference Range Interpretation Comments eGFR (test code = eGFR) 112 [facility] CenterPdkodtmIRHMAIRMKQ2280-12-76 05:01:00 Test Item Value Reference Range Interpretation Comments WBC (test code = WBC) 6.4 3.7-10.4 [facility] HospitalTfljkveTKUCWQUEXT2006-52-05 05:01:00 Test Item Value Reference Range Interpretation Comments RBC (test code = RBC) 5.28 4.20-5.40 [place] 375092-07-21 05:01:00 Test Item Value Reference Range Interpretation Comments Hgb (test code = Hgb) 14.1 12.0-16.0 [place] 375092-07-21 05:01:00 Test Item Value Reference Range Interpretation Comments Hct (test code = Hct) 43.0 36.0-48.0 [facility] HospitalXsjacxxHGXHJNRCXY8221-52-71 05:01:00 Test Item Value Reference Range Interpretation Comments MCV (test code = MCV) 81.4 80.0-98.0 [place] 375092-07-21 05:01:00 Test Item Value Reference Range Interpretation Comments MCH (test code = MCH) 26.7 pg 27.0-31.0 [facility] HospitalQtovtgdHXZXWOKATM3889-80-13 05:01:00 Test Item Value Reference Range Interpretation Comments MCHC (test code = MCHC) 32.9 32.0-36.0 [facility] HospitalXigebzsBXUTVOAQQN3958-04-09 05:01:00 Test Item Value Reference Range Interpretation Comments RDW (test code = RDW) 14.1 11.5-14.5 [place] 375092-07-21 05:01:00 Test Item Value Reference Range Interpretation Comments Platelet (test code = Platelet) 237 133-450 [facility] HospitalBjldgxmQJGCCVJYPX3242-93-60 05:01:00 Test Item Value Reference Range Interpretation Comments MPV (test code = MPV) 9.1 7.4-10.4 [place] 375092-07-21 05:01:00 Test Item Value Reference Range Interpretation Comments PT (test code = PT) 12.4 s 12.0-14.7 [place] 375092-07-21 05:01:00 Test Item Value Reference Range Interpretation Comments INR (test code = INR) 0.93 1 0.85-1.17 [place] 375092-07-21 05:01:00 Test Item Value Reference Range Interpretation Comments PTT (test code = PTT) 26.5 s 22.9-35.8 [place] 375092-07-21 05:01:00 Test Item Value Reference Range Interpretation Comments Segs (test code = Segs) 40.0 45.0-75.0 [facility] HospitalByrmyriOUHOHKQKTD8679-65-16 05:01:00 Test Item Value Reference Range Interpretation Comments Lymphocytes (test code = Lymphocytes) 49.7 20.0-40.0 [place] 375092-07-21 05:01:00 Test Item Value Reference Range Interpretation Comments Monocytes (test code = Monocytes) 8.5 2.0-12.0 [facility] HospitalEdxhgtqVXTDOPTGKA6016-26-10 05:01:00 Test Item Value Reference Range Interpretation Comments Eosinophils (test code = 1.0 See_Comment [A utomated message] The Eosinophils) system which ge nerated this result tra nsmitted reference range : <=4.0. The reference r kat was not used to int erpret this result as normal/abnormal . [place] 375092-07-21 05:01:00 Test Item Value Reference Range Interpretation Comments Basophils (test code = 0.8 See_Comment [Aut omated message] The Basophils) system which ge nerated this result tra nsmitted reference range : <=1.0. The reference r kat was not used to int erpret this result as normal/abnormal . [facility] HospitalIzjiaukPOGLZSKZQH4971-45-98 05:01:00 Test Item Value Reference Range Interpretation Comments Neutrophils # (test code = Neutrophils 2.5 1.5-8.1 #) [facility] HospitalEhcmkcyNXSWNELVKU8026-58-69 05:01:00 Test Item Value Reference Range Interpretation Comments Lymphocytes # (test code = Lymphocytes 3.2 1.0-5.5 #) [facility] HospitalKfzsucoGVAMOMEAMD3921-30-34 05:01:00 Test Item Value Reference Range Interpretation Comments Monocytes # (test code 0.5 See_Comment [Aut omated message] The = Monocytes #) system which generated this result tra nsmitted reference range : <=0.8. The reference r kat was not used to int erpret this result as normal/abnormal . [facility]CfqcaduRLRNPTNLRH1415-67-11 05:01:00 Test Item Value Reference Range Interpretation Comments Eosinophils # (test code 0.1 See_Comment [A utomated message] The = Eosinophils #) system whic h generated this result tra nsmitted reference range : <=0.5. The reference r kat was not used to int erpret this result as normal/abnormal . [facility] SRJOLCY7630[facility] 05:01:00 Test Item Value Reference Range Interpretation Comments HS Troponin I (test code = HS Troponin 5 I) [facility]2022-07-21 05:01:00 Test Item Value Reference Range Interpretation Comments Glucose Lvl (test code = Glucose Lvl) 96 70-99 [facility]2022-07-21 05:01:00 Test Item Value Reference Range Interpretation Comments BUN (test code = BUN) 16 7-22 [facility]2022-07-21 05:01:00 Test Item Value Reference Range Interpretation Comments Creatinine Lvl (test code = Creatinine 0.73 0.50-1.40 Lvl) [facility]2022-07-21 05:01:00 Test Item Value Reference Range Interpretation Comments Sodium Lvl (test code = Sodium Lvl) 141 135-145 [facility]2022-07-21 05:01:00 Test Item Value Reference Range Interpretation Comments Potassium Lvl (test code = Potassium 3.6 3.5-5.1 Lvl) [facility]2022-07-21 05:01:00 Test Item Value Reference Range Interpretation Comments Chloride Lvl (test code = Chloride Lvl) 110 95-109 [facility]2022-07-21 05:01:00 Test Item Value Reference Range Interpretation Comments CO2 (test code = CO2) 25 24-32 [facility]2022-07-21 05:01:00 Test Item Value Reference Range Interpretation Comments Calcium Lvl (test code = Calcium Lvl) 9.3 8.5-10.5 [facility]2022-07-21 05:01:00 Test Item Value Reference Range Interpretation Comments Total Protein (test code = Total 7.2 6.4-8.4 Protein) [facility]2022-07-21 05:01:00 Test Item Value Reference Range Interpretation Comments Albumin Lvl (test code = Albumin Lvl) 3.7 3.5-5.0 [facility]2022-07-21 05:01:00 Test Item Value Reference Range Interpretation Comments ALT (test code = ALT) 59 See_Comment [Auto mated message] The system which ge nerated this result transmit arvind reference range : <=65. The reference range was not used to interpr et this result as mario l/abnormal. [facility]2022-07-21 05:01:00 Test Item Value Reference Range Interpretation Comments AST (test code = AST) 24 See_Comment [Auto mated message] The system which ge nerated this result transmit arvind reference range : <=37. The reference range was not used to interpr et this result as mario l/abnormal. [place] 506842-07-21 05:01:00 Test Item Value Reference Range Interpretation Comments Alk Phos (test code = Alk Phos) 60 39-136 [place] 506842-07-21 05:01:00 Test Item Value Reference Range Interpretation Comments Bili Total (test code = Bili Total) 0.2 0.2-1.3 [place] 506842-07-21 05:01:00 Test Item Value Reference Range Interpretation Comments AGAP (test code = AGAP) 9.6 10.0-20.0 [place] 506842-07-21 05:01:00 Test Item Value Reference Range Interpretation Comments B/C Ratio (test code = B/C Ratio) 22 1 6-25 [place] 506842-07-21 05:01:00 Test Item Value Reference Range Interpretation Comments Globulin (test code = Globulin) 3.5 2.7-4.2 [place] 506842-07-21 05:01:00 Test Item Value Reference Range Interpretation Comments A/G Ratio (test code = A/G Ratio) 1.1 1 0.7-1.6 [place] 506842-07-21 05:01:00 Test Item Value Reference Range Interpretation Comments eGFR (test code = eGFR) 112 [place] 375092-07-21 05:01:00 Test Item Value Reference Range Interpretation Comments WBC (test code = WBC) 6.4 3.7-10.4 [place] 375092-07-21 05:01:00 Test Item Value Reference Range Interpretation Comments RBC (test code = RBC) 5.28 4.20-5.40 [place] 375092-07-21 05:01:00 Test Item Value Reference Range Interpretation Comments Hgb (test code = Hgb) 14.1 12.0-16.0 [facility] HospitalFrckacaNXSCVDWQMY4320-89-10 05:01:00 Test Item Value Reference Range Interpretation Comments Hct (test code = Hct) 43.0 36.0-48.0 [facility] HospitalIzgjmukVFJZHIUYBZ3372-62-51 05:01:00 Test Item Value Reference Range Interpretation Comments MCV (test code = MCV) 81.4 80.0-98.0 [facility] HospitalYgncrvhDQLGCKIGZU9284-26-73 05:01:00 Test Item Value Reference Range Interpretation Comments MCH (test code = MCH) 26.7 pg 27.0-31.0 [facility] HospitalSahncimESQECBALUJ2980-61-44 05:01:00 Test Item Value Reference Range Interpretation Comments MCHC (test code = MCHC) 32.9 32.0-36.0 [facility] HospitalIvccusdJGPKZUNXQT6797-97-22 05:01:00 Test Item Value Reference Range Interpretation Comments RDW (test code = RDW) 14.1 11.5-14.5 [facility] HospitalMhgccnzCKIUCMOZQU5523-20-26 05:01:00 Test Item Value Reference Range Interpretation Comments Platelet (test code = Platelet) 237 133-450 [facility] HospitalCfojwqgEZEHOZHSEU6814-70-25 05:01:00 Test Item Value Reference Range Interpretation Comments MPV (test code = MPV) 9.1 7.4-10.4 [facility] HospitalXzcejptSLUPBFFYSR7927-23-23 05:01:00 Test Item Value Reference Range Interpretation Comments PT (test code = PT) 12.4 s 12.0-14.7 [facility] HospitalJzvaffiYUAXAIPBUE1204-56-59 05:01:00 Test Item Value Reference Range Interpretation Comments INR (test code = INR) 0.93 1 0.85-1.17 [facility] HospitalTwpzzelXSTRKEAGPG7465-64-81 05:01:00 Test Item Value Reference Range Interpretation Comments PTT (test code = PTT) 26.5 s 22.9-35.8 [place] 375092-07-21 05:01:00 Test Item Value Reference Range Interpretation Comments Segs (test code = Segs) 40.0 45.0-75.0 [facility] HospitalHcelctdSJAGDCXPYQ5149-73-23 05:01:00 Test Item Value Reference Range Interpretation Comments Lymphocytes (test code = Lymphocytes) 49.7 20.0-40.0 [facility] HospitalYgneyvvMXHADCAISC9191-34-10 05:01:00 Test Item Value Reference Range Interpretation Comments Monocytes (test code = Monocytes) 8.5 2.0-12.0 [facility] HospitalTetdnyaIRJVOGPTXO0299-10-22 05:01:00 Test Item Value Reference Range Interpretation Comments Eosinophils (test code = 1.0 See_Comment [A utomated message] The Eosinophils) system which ge nerated this result tra nsmitted reference range : <=4.0. The reference r kat was not used to int erpret this result as normal/abnormal . [facility] HospitalQcckyszISLWVNENYH0931-24-39 05:01:00 Test Item Value Reference Range Interpretation Comments Basophils (test code = 0.8 See_Comment [Aut omated message] The Basophils) system which ge nerated this result tra nsmitted reference range : <=1.0. The reference r kat was not used to int erpret this result as normal/abnormal . [facility] HospitalOlcvqngAUCGZPUWKB4880-97-23 05:01:00 Test Item Value Reference Range Interpretation Comments Neutrophils # (test code = Neutrophils 2.5 1.5-8.1 #) [facility] HospitalCnugnjoNGVDVYTKZO4931-83-09 05:01:00 Test Item Value Reference Range Interpretation Comments Lymphocytes # (test code = Lymphocytes 3.2 1.0-5.5 #) [facility] HospitalPnltzcjJQMZSKHKNP0554-37-75 05:01:00 Test Item Value Reference Range Interpretation Comments Monocytes # (test code 0.5 See_Comment [Aut omated message] The = Monocytes #) system which generated this result tra nsmitted reference range : <=0.8. The reference r kat was not used to int erpret this result as normal/abnormal . [facility] HospitalFhtwwfgHKDSNIZCFS0067-73-25 05:01:00 Test Item Value Reference Range Interpretation Comments Eosinophils # (test code 0.1 See_Comment [A utomated message] The = Eosinophils #) system whic h generated this result tra nsmitted reference range : <=0.5. The reference r kat was not used to int erpret this result as normal/abnormal . [facility] RZNZLKG3469-72-36 05:01:00 Test Item Value Reference Range Interpretation Comments HS Troponin I (test code = HS Troponin 5 I) [facility] CenterCHEM NYIMJ1834-74-21 05:01:00 Test Item Value Reference Range Interpretation Comments Glucose Lvl (test code = Glucose Lvl) 96 70-99 [place] 506842-07-21 05:01:00 Test Item Value Reference Range Interpretation Comments BUN (test code = BUN) 16 7-22 [place] 506842-07-21 05:01:00 Test Item Value Reference Range Interpretation Comments Creatinine Lvl (test code = Creatinine 0.73 0.50-1.40 Lvl) [place] 506842-07-21 05:01:00 Test Item Value Reference Range Interpretation Comments Sodium Lvl (test code = Sodium Lvl) 141 135-145 [place] 506842-07-21 05:01:00 Test Item Value Reference Range Interpretation Comments Potassium Lvl (test code = Potassium 3.6 3.5-5.1 Lvl) [place] 506842-07-21 05:01:00 Test Item Value Reference Range Interpretation Comments Chloride Lvl (test code = Chloride Lvl) 110 95-109 [place] 506842-07-21 05:01:00 Test Item Value Reference Range Interpretation Comments CO2 (test code = CO2) 25 24-32 [place] 506842-07-21 05:01:00 Test Item Value Reference Range Interpretation Comments Calcium Lvl (test code = Calcium Lvl) 9.3 8.5-10.5 [facility]2022-07-21 05:01:00 Test Item Value Reference Range Interpretation Comments Total Protein (test code = Total 7.2 6.4-8.4 Protein) [place] 506842-07-21 05:01:00 Test Item Value Reference Range Interpretation Comments Albumin Lvl (test code = Albumin Lvl) 3.7 3.5-5.0 [place] 506842-07-21 05:01:00 Test Item Value Reference Range Interpretation Comments ALT (test code = ALT) 59 See_Comment [Auto mated message] The system which ge nerated this result transmit arvind reference range : <=65. The reference range was not used to interpr et this result as mraio l/abnormal. [place] 506842-07-21 05:01:00 Test Item Value Reference Range Interpretation Comments AST (test code = AST) 24 See_Comment [Auto mated message] The system which ge nerated this result transmit arvind reference range : <=37. The reference range was not used to interpr et this result as mario l/abnormal. [facility]2022-07-21 05:01:00 Test Item Value Reference Range Interpretation Comments Alk Phos (test code = Alk Phos) 60 39-136 [place] 506842-07-21 05:01:00 Test Item Value Reference Range Interpretation Comments Bili Total (test code = Bili Total) 0.2 0.2-1.3 [place] 506842-07-21 05:01:00 Test Item Value Reference Range Interpretation Comments AGAP (test code = AGAP) 9.6 10.0-20.0 [place] 506842-07-21 05:01:00 Test Item Value Reference Range Interpretation Comments B/C Ratio (test code = B/C Ratio) 22 1 6-25 [place] 506842-07-21 05:01:00 Test Item Value Reference Range Interpretation Comments Globulin (test code = Globulin) 3.5 2.7-4.2 [facility]2022-07-21 05:01:00 Test Item Value Reference Range Interpretation Comments A/G Ratio (test code = A/G Ratio) 1.1 1 0.7-1.6 [place] 506842-07-21 05:01:00 Test Item Value Reference Range Interpretation Comments eGFR (test code = eGFR) 112 [place] 375092-07-21 05:01:00 Test Item Value Reference Range Interpretation Comments WBC (test code = WBC) 6.4 3.7-10.4 [place] 375092-07-21 05:01:00 Test Item Value Reference Range Interpretation Comments RBC (test code = RBC) 5.28 4.20-5.40 [place] 375092-07-21 05:01:00 Test Item Value Reference Range Interpretation Comments Hgb (test code = Hgb) 14.1 12.0-16.0 [place] 375092-07-21 05:01:00 Test Item Value Reference Range Interpretation Comments Hct (test code = Hct) 43.0 36.0-48.0 [place] 375092-07-21 05:01:00 Test Item Value Reference Range Interpretation Comments MCV (test code = MCV) 81.4 80.0-98.0 [facility] HospitalUxtqeobQPTMIWMJDA2363-22-28 05:01:00 Test Item Value Reference Range Interpretation Comments MCH (test code = MCH) 26.7 pg 27.0-31.0 [facility] HospitalUjhcdyzKYHYWPWUDJ5540-15-36 05:01:00 Test Item Value Reference Range Interpretation Comments MCHC (test code = MCHC) 32.9 32.0-36.0 [facility] HospitalMwpmcaaKLBTIVOQBB8773-18-29 05:01:00 Test Item Value Reference Range Interpretation Comments RDW (test code = RDW) 14.1 11.5-14.5 [place] 375092-07-21 05:01:00 Test Item Value Reference Range Interpretation Comments Platelet (test code = Platelet) 237 133-450 [facility] HospitalFbqbnjuGAKJCXFRFT0850-92-43 05:01:00 Test Item Value Reference Range Interpretation Comments MPV (test code = MPV) 9.1 7.4-10.4 [place] 375092-07-21 05:01:00 Test Item Value Reference Range Interpretation Comments PT (test code = PT) 12.4 s 12.0-14.7 [place] 375092-07-21 05:01:00 Test Item Value Reference Range Interpretation Comments INR (test code = INR) 0.93 1 0.85-1.17 [facility] HospitalDcjktsfCDPHWMRNSE4791-15-88 05:01:00 Test Item Value Reference Range Interpretation Comments PTT (test code = PTT) 26.5 s 22.9-35.8 [place] 375092-07-21 05:01:00 Test Item Value Reference Range Interpretation Comments Segs (test code = Segs) 40.0 45.0-75.0 [place] 375092-07-21 05:01:00 Test Item Value Reference Range Interpretation Comments Lymphocytes (test code = Lymphocytes) 49.7 20.0-40.0 [place] 375092-07-21 05:01:00 Test Item Value Reference Range Interpretation Comments Monocytes (test code = Monocytes) 8.5 2.0-12.0 [place] 375092-07-21 05:01:00 Test Item Value Reference Range Interpretation Comments Eosinophils (test code = 1.0 See_Comment [A utomated message] The Eosinophils) system which ge nerated this result tra nsmitted reference range : <=4.0. The reference r kat was not used to int erpret this result as normal/abnormal . [facility] 05:[facility]:00 Test Item Value Reference Range Interpretation Comments Basophils (test code = 0.8 See_Comment [Aut omated message] The Basophils) system which ge nerated this result tra nsmitted reference range : <=1.0. The reference r kat was not used to int erpret this result as normal/abnormal . [facility]AvkkrofXTBFXPSVWQ7676-41-87 05:01:00 Test Item Value Reference Range Interpretation Comments Neutrophils # (test code = Neutrophils 2.5 1.5-8.1 #) [facility]DwszdizXNXZHPIWOC6732-95-57 05:01:00 Test Item Value Reference Range Interpretation Comments Lymphocytes # (test code = Lymphocytes 3.2 1.0-5.5 #) [facility] HospitalSoobvtoWBLFXTNMKT5801-46-40 05:01:00 Test Item Value Reference Range Interpretation Comments Monocytes # (test code 0.5 See_Comment [Aut omated message] The = Monocytes #) system which generated this result tra nsmitted reference range : <=0.8. The reference r kat was not used to int erpret this result as normal/abnormal . [facility] HospitalWzqmeksSBTURJWRUZ3310-67-14 05:01:00 Test Item Value Reference Range Interpretation Comments Eosinophils # (test code 0.1 See_Comment [A utomated message] The = Eosinophils #) system whic h generated this result tra nsmitted reference range : <=0.5. The reference r kat was not used to int erpret this result as normal/abnormal . [facility] CZCQSXA5203-35-02 05:01:00 Test Item Value Reference Range Interpretation Comments HS Troponin I (test code = HS Troponin 5 I) [facility] CenterNubity IPKTO8858-28-48 05:01:00 Test Item Value Reference Range Interpretation Comments Glucose Lvl (test code = Glucose Lvl) 96 70-99 [facility] SWNZU3934-25-94 05:01:00 Test Item Value Reference Range Interpretation Comments BUN (test code = BUN) 16 7-22 [facility] EVGUA7925-27-22 05:01:00 Test Item Value Reference Range Interpretation Comments Creatinine Lvl (test code = Creatinine 0.73 0.50-1.40 Lvl) [place] 506842-07-21 05:01:00 Test Item Value Reference Range Interpretation Comments Sodium Lvl (test code = Sodium Lvl) 141 135-145 [place] 506842-07-21 05:01:00 Test Item Value Reference Range Interpretation Comments Potassium Lvl (test code = Potassium 3.6 3.5-5.1 Lvl) [place] 506842-07-21 05:01:00 Test Item Value Reference Range Interpretation Comments Chloride Lvl (test code = Chloride Lvl) 110 95-109 [place] 506842-07-21 05:01:00 Test Item Value Reference Range Interpretation Comments CO2 (test code = CO2) 25 24-32 [place] 506842-07-21 05:01:00 Test Item Value Reference Range Interpretation Comments Calcium Lvl (test code = Calcium Lvl) 9.3 8.5-10.5 [place] 506842-07-21 05:01:00 Test Item Value Reference Range Interpretation Comments Total Protein (test code = Total 7.2 6.4-8.4 Protein) [place] 506842-07-21 05:01:00 Test Item Value Reference Range Interpretation Comments Albumin Lvl (test code = Albumin Lvl) 3.7 3.5-5.0 [place] 506842-07-21 05:01:00 Test Item Value Reference Range Interpretation Comments ALT (test code = ALT) 59 See_Comment [Auto mated message] The system which ge nerated this result transmit arvind reference range : <=65. The reference range was not used to interpr et this result as mario l/abnormal. [place] 506842-07-21 05:01:00 Test Item Value Reference Range Interpretation Comments AST (test code = AST) 24 See_Comment [Auto mated message] The system which ge nerated this result transmit arvind reference range : <=37. The reference range was not used to interpr et this result as mario l/abnormal. [place] 506842-07-21 05:01:00 Test Item Value Reference Range Interpretation Comments Alk Phos (test code = Alk Phos) 60 39-136 [facility]2022-07-21 05:01:00 Test Item Value Reference Range Interpretation Comments Bili Total (test code = Bili Total) 0.2 0.2-1.3 [facility]2022-07-21 05:01:00 Test Item Value Reference Range Interpretation Comments AGAP (test code = AGAP) 9.6 10.0-20.0 [facility]2022-07-21 05:01:00 Test Item Value Reference Range Interpretation Comments B/C Ratio (test code = B/C Ratio) 22 1 6-25 [facility]2022-07-21 05:01:00 Test Item Value Reference Range Interpretation Comments Globulin (test code = Globulin) 3.5 2.7-4.2 [facility]2022-07-21 05:01:00 Test Item Value Reference Range Interpretation Comments A/G Ratio (test code = A/G Ratio) 1.1 1 0.7-1.6 [facility]2022-07-21 05:01:00 Test Item Value Reference Range Interpretation Comments eGFR (test code = eGFR) 112 [facility] HospitalKitecwmADUZWLHXCV8832-00-09 05:01:00 Test Item Value Reference Range Interpretation Comments WBC (test code = WBC) 6.4 3.7-10.4 [facility] HospitalKuhadhlNYZFZADCBH6200-73-34 05:01:00 Test Item Value Reference Range Interpretation Comments RBC (test code = RBC) 5.28 4.20-5.40 [facility] HospitalTydkdoqFVEYGQDYDA6785-29-76 05:01:00 Test Item Value Reference Range Interpretation Comments Hgb (test code = Hgb) 14.1 12.0-16.0 [facility] HospitalDxntnlgGSQFXVPGBJ4247-95-75 05:01:00 Test Item Value Reference Range Interpretation Comments Hct (test code = Hct) 43.0 36.0-48.0 [place] 375092-07-21 05:01:00 Test Item Value Reference Range Interpretation Comments MCV (test code = MCV) 81.4 80.0-98.0 [place] 375092-07-21 05:01:00 Test Item Value Reference Range Interpretation Comments MCH (test code = MCH) 26.7 pg 27.0-31.0 [facility] HospitalLaabhjfWAVNNDYLYB4107-06-66 05:01:00 Test Item Value Reference Range Interpretation Comments MCHC (test code = MCHC) 32.9 32.0-36.0 [facility] HospitalOrnoyrgIPNKOHAFOU2808-68-61 05:01:00 Test Item Value Reference Range Interpretation Comments RDW (test code = RDW) 14.1 11.5-14.5 [facility] HospitalAemggzuSPTVEQOVNG0330-05-52 05:01:00 Test Item Value Reference Range Interpretation Comments Platelet (test code = Platelet) 237 133-450 [facility] HospitalRckljtfDCZWJROGKD3928-13-31 05:01:00 Test Item Value Reference Range Interpretation Comments MPV (test code = MPV) 9.1 7.4-10.4 [facility] HospitalYaplrorBBIRJPUTDY6624-59-08 05:01:00 Test Item Value Reference Range Interpretation Comments PT (test code = PT) 12.4 s 12.0-14.7 [facility] HospitalMvecgomOGINJRTGJF2285-03-87 05:01:00 Test Item Value Reference Range Interpretation Comments INR (test code = INR) 0.93 1 0.85-1.17 [facility] HospitalJpqsypgDFAZURZIJG3308-06-08 05:01:00 Test Item Value Reference Range Interpretation Comments PTT (test code = PTT) 26.5 s 22.9-35.8 [facility] HospitalAnluenfWFIHVPHOQN9440-95-25 05:01:00 Test Item Value Reference Range Interpretation Comments Segs (test code = Segs) 40.0 45.0-75.0 [facility] HospitalVrkngnvPUTUSOMQOM9826-78-47 05:01:00 Test Item Value Reference Range Interpretation Comments Lymphocytes (test code = Lymphocytes) 49.7 20.0-40.0 [place] 375092-07-21 05:01:00 Test Item Value Reference Range Interpretation Comments Monocytes (test code = Monocytes) 8.5 2.0-12.0 [place] 375092-07-21 05:01:00 Test Item Value Reference Range Interpretation Comments Eosinophils (test code = 1.0 See_Comment [A utomated message] The Eosinophils) system which ge nerated this result tra nsmitted reference range : <=4.0. The reference r kat was not used to int erpret this result as normal/abnormal . [facility] HospitalDxzewjuIRNONMCOZA0420-54-30 05:01:00 Test Item Value Reference Range Interpretation Comments Basophils (test code = 0.8 See_Comment [Aut omated message] The Basophils) system which ge nerated this result tra nsmitted reference range : <=1.0. The reference r akt was not used to int erpret this result as normal/abnormal . [facility] HospitalInntkzuWFCZZDKZOT1140-31-57 05:01:00 Test Item Value Reference Range Interpretation Comments Neutrophils # (test code = Neutrophils 2.5 1.5-8.1 #) [facility] HospitalLidtkadZJEICMKTNU7980-66-32 05:01:00 Test Item Value Reference Range Interpretation Comments Lymphocytes # (test code = Lymphocytes 3.2 1.0-5.5 #) [facility] HospitalJvgmwriGHFSLXTQXB4947-53-60 05:01:00 Test Item Value Reference Range Interpretation Comments Monocytes # (test code 0.5 See_Comment [Aut omated message] The = Monocytes #) system which generated this result tra nsmitted reference range : <=0.8. The reference r kat was not used to int erpret this result as normal/abnormal . [facility] HospitalSonethsTQMNOONCAQ6310-02-08 05:01:00 Test Item Value Reference Range Interpretation Comments Eosinophils # (test code 0.1 See_Comment [A utomated message] The = Eosinophils #) system whic h generated this result tra nsmitted reference range : <=0.5. The reference r kat was not used to int erpret this result as normal/abnormal . [facility] MLDPZWQ9424-81-77 05:01:00 Test Item Value Reference Range Interpretation Comments HS Troponin I (test code = HS Troponin 5 I) [facility] WKOSY2783-27-62 05:01:00 Test Item Value Reference Range Interpretation Comments Glucose Lvl (test code = Glucose Lvl) 96 70-99 [facility] HHCOW5546-16-97 05:01:00 Test Item Value Reference Range Interpretation Comments BUN (test code = BUN) 16 7-22 [facility]2022-07-21 05:01:00 Test Item Value Reference Range Interpretation Comments Creatinine Lvl (test code = Creatinine 0.73 0.50-1.40 Lvl) [facility]2022-07-21 05:01:00 Test Item Value Reference Range Interpretation Comments Sodium Lvl (test code = Sodium Lvl) 141 135-145 [place] 506842-07-21 05:01:00 Test Item Value Reference Range Interpretation Comments Potassium Lvl (test code = Potassium 3.6 3.5-5.1 Lvl) [place] 506842-07-21 05:01:00 Test Item Value Reference Range Interpretation Comments Chloride Lvl (test code = Chloride Lvl) 110 95-109 [place] 506842-07-21 05:01:00 Test Item Value Reference Range Interpretation Comments CO2 (test code = CO2) 25 24-32 [place] 506842-07-21 05:01:00 Test Item Value Reference Range Interpretation Comments Calcium Lvl (test code = Calcium Lvl) 9.3 8.5-10.5 [place] 506842-07-21 05:01:00 Test Item Value Reference Range Interpretation Comments Total Protein (test code = Total 7.2 6.4-8.4 Protein) [place] 506842-07-21 05:01:00 Test Item Value Reference Range Interpretation Comments Albumin Lvl (test code = Albumin Lvl) 3.7 3.5-5.0 [place] 506842-07-21 05:01:00 Test Item Value Reference Range Interpretation Comments ALT (test code = ALT) 59 See_Comment [Auto mated message] The system which ge nerated this result transmit arvind reference range : <=65. The reference range was not used to interpr et this result as mario l/abnormal. [place] 506842-07-21 05:01:00 Test Item Value Reference Range Interpretation Comments AST (test code = AST) 24 See_Comment [Auto mated message] The system which ge nerated this result transmit arvind reference range : <=37. The reference range was not used to interpr et this result as mario l/abnormal. [place] 506842-07-21 05:01:00 Test Item Value Reference Range Interpretation Comments Alk Phos (test code = Alk Phos) 60 39-136 [place] 506842-07-21 05:01:00 Test Item Value Reference Range Interpretation Comments Bili Total (test code = Bili Total) 0.2 0.2-1.3 [place] 506842-07-21 05:01:00 Test Item Value Reference Range Interpretation Comments AGAP (test code = AGAP) 9.6 10.0-20.0 [facility]2022-07-21 05:01:00 Test Item Value Reference Range Interpretation Comments B/C Ratio (test code = B/C Ratio) 22 1 6-25 [facility]2022-07-21 05:01:00 Test Item Value Reference Range Interpretation Comments Globulin (test code = Globulin) 3.5 2.7-4.2 [facility]2022-07-21 05:01:00 Test Item Value Reference Range Interpretation Comments A/G Ratio (test code = A/G Ratio) 1.1 1 0.7-1.6 [facility]2022-07-21 05:01:00 Test Item Value Reference Range Interpretation Comments eGFR (test code = eGFR) 112 [facility]CrbastbHMDUTAFNAH7858-42-70 05:01:00 Test Item Value Reference Range Interpretation Comments WBC (test code = WBC) 6.4 3.7-10.4 [place] 375092-07-21 05:01:00 Test Item Value Reference Range Interpretation Comments RBC (test code = RBC) 5.28 4.20-5.40 [facility] HospitalIbmixrsDEHQARRHUD2025-21-35 05:01:00 Test Item Value Reference Range Interpretation Comments Hgb (test code = Hgb) 14.1 12.0-16.0 [facility] HospitalLlwdjobMHHLCBBWER8999-72-03 05:01:00 Test Item Value Reference Range Interpretation Comments Hct (test code = Hct) 43.0 36.0-48.0 [place] 375092-07-21 05:01:00 Test Item Value Reference Range Interpretation Comments MCV (test code = MCV) 81.4 80.0-98.0 [place] 375092-07-21 05:01:00 Test Item Value Reference Range Interpretation Comments MCH (test code = MCH) 26.7 pg 27.0-31.0 [place] 375092-07-21 05:01:00 Test Item Value Reference Range Interpretation Comments MCHC (test code = MCHC) 32.9 32.0-36.0 [place] 375092-07-21 05:01:00 Test Item Value Reference Range Interpretation Comments RDW (test code = RDW) 14.1 11.5-14.5 [place] 375092-07-21 05:01:00 Test Item Value Reference Range Interpretation Comments Platelet (test code = Platelet) 237 133-450 [place] 375092-07-21 05:01:00 Test Item Value Reference Range Interpretation Comments MPV (test code = MPV) 9.1 7.4-10.4 [place] 375092-07-21 05:01:00 Test Item Value Reference Range Interpretation Comments PT (test code = PT) 12.4 s 12.0-14.7 [place] 375092-07-21 05:01:00 Test Item Value Reference Range Interpretation Comments INR (test code = INR) 0.93 1 0.85-1.17 [place] 375092-07-21 05:01:00 Test Item Value Reference Range Interpretation Comments PTT (test code = PTT) 26.5 s 22.9-35.8 [place] 375092-07-21 05:01:00 Test Item Value Reference Range Interpretation Comments Segs (test code = Segs) 40.0 45.0-75.0 [place] 375092-07-21 05:01:00 Test Item Value Reference Range Interpretation Comments Lymphocytes (test code = Lymphocytes) 49.7 20.0-40.0 [place] 375092-07-21 05:01:00 Test Item Value Reference Range Interpretation Comments Monocytes (test code = Monocytes) 8.5 2.0-12.0 [place] 375092-07-21 05:01:00 Test Item Value Reference Range Interpretation Comments Eosinophils (test code = 1.0 See_Comment [A utomated message] The Eosinophils) system which ge nerated this result tra nsmitted reference range : <=4.0. The reference r kat was not used to int erpret this result as normal/abnormal . [place] 375092-07-21 05:01:00 Test Item Value Reference Range Interpretation Comments Basophils (test code = 0.8 See_Comment [Aut omated message] The Basophils) system which ge nerated this result tra nsmitted reference range : <=1.0. The reference r kat was not used to int erpret this result as normal/abnormal . [place] 375092-07-21 05:01:00 Test Item Value Reference Range Interpretation Comments Neutrophils # (test code = Neutrophils 2.5 1.5-8.1 #) [facility] 05:01:00 Test Item Value Reference Range Interpretation Comments Lymphocytes # (test code = Lymphocytes 3.2 1.0-5.5 #) [facility] HospitalFjjocruHEMVBLTFGO8895-21-40 05:01:00 Test Item Value Reference Range Interpretation Comments Monocytes # (test code 0.5 See_Comment [Aut omated message] The = Monocytes #) system which generated this result tra nsmitted reference range : <=0.8. The reference r kat was not used to int erpret this result as normal/abnormal . [facility] HospitalHatdhowSIJNQCXRUY9016-08-60 05:01:00 Test Item Value Reference Range Interpretation Comments Eosinophils # (test code 0.1 See_Comment [A utomated message] The = Eosinophils #) system whic h generated this result tra nsmitted reference range : <=0.5. The reference r kat was not used to int erpret this result as normal/abnormal . [facility] RJWFFSH9125-65-86 05:01:00 Test Item Value Reference Range Interpretation Comments HS Troponin I (test code = HS Troponin 5 I) [facility]2022-07-21 05:01:00 Test Item Value Reference Range Interpretation Comments Glucose Lvl (test code = Glucose Lvl) 96 70-99 [facility]2022-07-21 05:01:00 Test Item Value Reference Range Interpretation Comments BUN (test code = BUN) 16 7-22 [place] 506842-07-21 05:01:00 Test Item Value Reference Range Interpretation Comments Creatinine Lvl (test code = Creatinine 0.73 0.50-1.40 Lvl) [facility]2022-07-21 05:01:00 Test Item Value Reference Range Interpretation Comments Sodium Lvl (test code = Sodium Lvl) 141 135-145 [facility]2022-07-21 05:01:00 Test Item Value Reference Range Interpretation Comments Potassium Lvl (test code = Potassium 3.6 3.5-5.1 Lvl) [facility]2022-07-21 05:01:00 Test Item Value Reference Range Interpretation Comments Chloride Lvl (test code = Chloride Lvl) 110 95-109 [facility]2022-07-21 05:01:00 Test Item Value Reference Range Interpretation Comments CO2 (test code = CO2) 25 24-32 [place] 506842-07-21 05:01:00 Test Item Value Reference Range Interpretation Comments Calcium Lvl (test code = Calcium Lvl) 9.3 8.5-10.5 [place] 506842-07-21 05:01:00 Test Item Value Reference Range Interpretation Comments Total Protein (test code = Total 7.2 6.4-8.4 Protein) [place] 506842-07-21 05:01:00 Test Item Value Reference Range Interpretation Comments Albumin Lvl (test code = Albumin Lvl) 3.7 3.5-5.0 [facility]2022-07-21 05:01:00 Test Item Value Reference Range Interpretation Comments ALT (test code = ALT) 59 See_Comment [Auto mated message] The system which ge nerated this result transmit arvind reference range : <=65. The reference range was not used to interpr et this result as mraio l/abnormal. [facility]2022-07-21 05:01:00 Test Item Value Reference Range Interpretation Comments AST (test code = AST) 24 See_Comment [Auto mated message] The system which ge nerated this result transmit arvind reference range : <=37. The reference range was not used to interpr et this result as mario l/abnormal. [facility]2022-07-21 05:01:00 Test Item Value Reference Range Interpretation Comments Alk Phos (test code = Alk Phos) 60 39-136 [facility]2022-07-21 05:01:00 Test Item Value Reference Range Interpretation Comments Bili Total (test code = Bili Total) 0.2 0.2-1.3 [place] 506842-07-21 05:01:00 Test Item Value Reference Range Interpretation Comments AGAP (test code = AGAP) 9.6 10.0-20.0 [place] 506842-07-21 05:01:00 Test Item Value Reference Range Interpretation Comments B/C Ratio (test code = B/C Ratio) 22 1 6-25 [place] 506842-07-21 05:01:00 Test Item Value Reference Range Interpretation Comments Globulin (test code = Globulin) 3.5 2.7-4.[address] [facility] YYVAU7469-49-41 05:01:00 Test Item Value Reference Range Interpretation Comments A/G Ratio (test code = A/G Ratio) 1.1 1 0.7-1.[address] [facility] RUFMQ4886-00-41 05:01:00 Test Item Value Reference Range Interpretation Comments eGFR (test code = eGFR) 112 [facility] HospitalGhawmouYUFPZULBVG2531-31-16 05:01:00 Test Item Value Reference Range Interpretation Comments WBC (test code = WBC) 6.4 3.7-10.4 [facility] HospitalUlddbtvWUSJJETWUY0002-30-89 05:01:00 Test Item Value Reference Range Interpretation Comments RBC (test code = RBC) 5.28 4.20-5.40 [place] 375092-07-21 05:01:00 Test Item Value Reference Range Interpretation Comments Hgb (test code = Hgb) 14.1 12.0-16.0 [facility] HospitalZgdqhikNTYNBHLTWW2807-21-87 05:01:00 Test Item Value Reference Range Interpretation Comments Hct (test code = Hct) 43.0 36.0-48.0 [facility] HospitalWgmydydTOAPBKHLGK3337-87-24 05:01:00 Test Item Value Reference Range Interpretation Comments MCV (test code = MCV) 81.4 80.0-98.0 [facility] HospitalWvhonruSKPPPRVVDO9831-64-85 05:01:00 Test Item Value Reference Range Interpretation Comments MCH (test code = MCH) 26.7 pg 27.0-31.0 [facility] HospitalWgusvjbWTBPNPPGIY3978-32-86 05:01:00 Test Item Value Reference Range Interpretation Comments MCHC (test code = MCHC) 32.9 32.0-36.0 [facility] HospitalEoxsotaAPGDSRQDRA7820-34-09 05:01:00 Test Item Value Reference Range Interpretation Comments RDW (test code = RDW) 14.1 11.5-14.5 [facility] HospitalZrgfzktWXUNJJPTMO0834-34-31 05:01:00 Test Item Value Reference Range Interpretation Comments Platelet (test code = Platelet) 237 133-450 [facility] HospitalNndxdvdVQMRNIPETH2129-44-05 05:01:00 Test Item Value Reference Range Interpretation Comments MPV (test code = MPV) 9.1 7.4-10.4 [facility] HospitalLvixhggEXSDAMLNVU8010-71-05 05:01:00 Test Item Value Reference Range Interpretation Comments PT (test code = PT) 12.4 s 12.0-14.7 [facility] HospitalQcwyhefQQSHGPHKVS5146-02-97 05:01:00 Test Item Value Reference Range Interpretation Comments INR (test code = INR) 0.93 1 0.85-1.17 [facility] HospitalTasvvwbHITWTMKWRX5543-32-59 05:01:00 Test Item Value Reference Range Interpretation Comments PTT (test code = PTT) 26.5 s 22.9-35.8 [facility] HospitalIyesswbIYUWNNYNQY0342-06-95 05:01:00 Test Item Value Reference Range Interpretation Comments Segs (test code = Segs) 40.0 45.0-75.0 [facility] HospitalIdeeydkVLMHPWJFGN9484-04-83 05:01:00 Test Item Value Reference Range Interpretation Comments Lymphocytes (test code = Lymphocytes) 49.7 20.0-40.0 [facility] HospitalYtofqajJQHIRQWVAX4056-61-98 05:01:00 Test Item Value Reference Range Interpretation Comments Monocytes (test code = Monocytes) 8.5 2.0-12.0 [facility] HospitalZfnwuuhTUJTKYSMIM0633-19-08 05:01:00 Test Item Value Reference Range Interpretation Comments Eosinophils (test code = 1.0 See_Comment [A utomated message] The Eosinophils) system which ge nerated this result tra nsmitted reference range : <=4.0. The reference r kat was not used to int erpret this result as normal/abnormal . [facility] HospitalNwswipvACCRYODTXD6706-34-41 05:01:00 Test Item Value Reference Range Interpretation Comments Basophils (test code = 0.8 See_Comment [Aut omated message] The Basophils) system which ge nerated this result tra nsmitted reference range : <=1.0. The reference r kat was not used to int erpret this result as normal/abnormal . [facility] HospitalEtrqwdeVVHGFMEEEL2418-85-27 05:01:00 Test Item Value Reference Range Interpretation Comments Neutrophils # (test code = Neutrophils 2.5 1.5-8.1 #) [facility] HospitalDhmvpivJVKCVBVAGJ5271-21-77 05:01:00 Test Item Value Reference Range Interpretation Comments Lymphocytes # (test code = Lymphocytes 3.2 1.0-5.5 #) [facility]ukllmTUTYKQCMUK5711-50-21 05:01:00 Test Item Value Reference Range Interpretation Comments Monocytes # (test code 0.5 See_Comment [Aut omated message] The = Monocytes #) system which generated this result tra nsmitted reference range : <=0.8. The reference r kat was not used to int erpret this result as normal/abnormal . [facility] SystemWnpqzccBMBLUYUQZA6029-33-60 05:01:00 Test Item Value Reference Range Interpretation Comments Eosinophils # (test code 0.1 See_Comment [A utomated message] The = Eosinophils #) system whic h generated this result tra nsmitted reference range : <=0.5. The reference r kat was not used to int erpret this result as normal/abnormal . [facility] KZSEEVQ9026-24-82 05:01:00 Test Item Value Reference Range Interpretation Comments HS Troponin I (test code = HS Troponin 5 I) [facility] CenterNubity MJFCZ4070-20-20 05:01:00 Test Item Value Reference Range Interpretation Comments Glucose Lvl (test code = Glucose Lvl) 96 70-99 [facility] OWOCZ9021-63-03 05:01:00 Test Item Value Reference Range Interpretation Comments BUN (test code = BUN) 16 7-22 [facility] HCYRM9927-14-27 05:01:00 Test Item Value Reference Range Interpretation Comments Creatinine Lvl (test code = Creatinine 0.73 0.50-1.40 Lvl) [facility] ZDISD2601-01-38 05:01:00 Test Item Value Reference Range Interpretation Comments Sodium Lvl (test code = Sodium Lvl) 141 135-145 [facility] ZIEAW4897-93-34 05:01:00 Test Item Value Reference Range Interpretation Comments Potassium Lvl (test code = Potassium 3.6 3.5-5.1 Lvl) [facility] AMMKP2057-12-70 05:01:00 Test Item Value Reference Range Interpretation Comments Chloride Lvl (test code = Chloride Lvl) 110 95-109 [facility] CGPIN8733-16-99 05:01:00 Test Item Value Reference Range Interpretation Comments CO2 (test code = CO2) 25 24-32 [facility] [id number] 05:01:00 Test Item Value Reference Range Interpretation Comments Calcium Lvl (test code = Calcium Lvl) 9.3 8.5-10.5 [place] 506842-07-21 05:01:00 Test Item Value Reference Range Interpretation Comments Total Protein (test code = Total 7.2 6.4-8.4 Protein) [place] 506842-07-21 05:01:00 Test Item Value Reference Range Interpretation Comments Albumin Lvl (test code = Albumin Lvl) 3.7 3.5-5.0 [place] 506842-07-21 05:01:00 Test Item Value Reference Range Interpretation Comments ALT (test code = ALT) 59 See_Comment [Auto mated message] The system which ge nerated this result transmit arvind reference range : <=65. The reference range was not used to interpr et this result as mario l/abnormal. [place] 506842-07-21 05:01:00 Test Item Value Reference Range Interpretation Comments AST (test code = AST) 24 See_Comment [Auto mated message] The system which ge nerated this result transmit arvind reference range : <=37. The reference range was not used to interpr et this result as mario l/abnormal. [facility]2022-07-21 05:01:00 Test Item Value Reference Range Interpretation Comments Alk Phos (test code = Alk Phos) 60 39-136 [place] 506842-07-21 05:01:00 Test Item Value Reference Range Interpretation Comments Bili Total (test code = Bili Total) 0.2 0.2-1.3 [place] 506842-07-21 05:01:00 Test Item Value Reference Range Interpretation Comments AGAP (test code = AGAP) 9.6 10.0-20.0 [place] 506842-07-21 05:01:00 Test Item Value Reference Range Interpretation Comments B/C Ratio (test code = B/C Ratio) 22 1 6-25 [place] 506842-07-21 05:01:00 Test Item Value Reference Range Interpretation Comments Globulin (test code = Globulin) 3.5 2.7-4.2 [place] 506842-07-21 05:01:00 Test Item Value Reference Range Interpretation Comments A/G Ratio (test code = A/G Ratio) 1.1 1 0.7-1.6 [facility]2022-07-21 05:01:00 Test Item Value Reference Range Interpretation Comments eGFR (test code = eGFR) 112 [facility] HospitalGwgrfxyAHYQIWFWJR1298-38-53 05:01:00 Test Item Value Reference Range Interpretation Comments WBC (test code = WBC) 6.4 3.7-10.4 [facility] HospitalKaghbrtOHBHEEOPKS0313-16-17 05:01:00 Test Item Value Reference Range Interpretation Comments RBC (test code = RBC) 5.28 4.20-5.40 [facility] HospitalGylyuuxMDUYUXKSKM2081-38-37 05:01:00 Test Item Value Reference Range Interpretation Comments Hgb (test code = Hgb) 14.1 12.0-16.0 [place] 375092-07-21 05:01:00 Test Item Value Reference Range Interpretation Comments Hct (test code = Hct) 43.0 36.0-48.0 [facility] HospitalXqmigqgRELOQMRRHP0994-22-67 05:01:00 Test Item Value Reference Range Interpretation Comments MCV (test code = MCV) 81.4 80.0-98.0 [facility] HospitalDjploeuYCHUEIIZEE4794-24-48 05:01:00 Test Item Value Reference Range Interpretation Comments MCH (test code = MCH) 26.7 pg 27.0-31.0 [facility] HospitalSzdmboyENLSODJSPH3094-92-32 05:01:00 Test Item Value Reference Range Interpretation Comments MCHC (test code = MCHC) 32.9 32.0-36.0 [facility] HospitalBalztwgQJCISUHEVQ4760-12-40 05:01:00 Test Item Value Reference Range Interpretation Comments RDW (test code = RDW) 14.1 11.5-14.5 [facility] HospitalQqisrluRAMWBMLXRA2274-16-71 05:01:00 Test Item Value Reference Range Interpretation Comments Platelet (test code = Platelet) 237 133-450 [facility] HospitalUknofqiBCHGVQQIAD7020-29-32 05:01:00 Test Item Value Reference Range Interpretation Comments MPV (test code = MPV) 9.1 7.4-10.4 [place] 375092-07-21 05:01:00 Test Item Value Reference Range Interpretation Comments PT (test code = PT) 12.4 s 12.0-14.7 [facility] HospitalUvxuoibVBHEHEHZME1876-81-07 05:01:00 Test Item Value Reference Range Interpretation Comments INR (test code = INR) 0.93 1 0.85-1.17 [place] 375092-07-21 05:01:00 Test Item Value Reference Range Interpretation Comments PTT (test code = PTT) 26.5 s 22.9-35.8 [place] 375092-07-21 05:01:00 Test Item Value Reference Range Interpretation Comments Segs (test code = Segs) 40.0 45.0-75.0 [place] 375092-07-21 05:01:00 Test Item Value Reference Range Interpretation Comments Lymphocytes (test code = Lymphocytes) 49.7 20.0-40.0 [place] 375092-07-21 05:01:00 Test Item Value Reference Range Interpretation Comments Monocytes (test code = Monocytes) 8.5 2.0-12.0 [place] 375092-07-21 05:01:00 Test Item Value Reference Range Interpretation Comments Eosinophils (test code = 1.0 See_Comment [A utomated message] The Eosinophils) system which ge nerated this result tra nsmitted reference range : <=4.0. The reference r kat was not used to int erpret this result as normal/abnormal . [facility] HospitalWlkelqwFKIXZKOIJQ5788-49-52 05:01:00 Test Item Value Reference Range Interpretation Comments Basophils (test code = 0.8 See_Comment [Aut omated message] The Basophils) system which ge nerated this result tra nsmitted reference range : <=1.0. The reference r kat was not used to int erpret this result as normal/abnormal . [facility] HospitalHdiypbqPUSJOQPPEF7515-75-43 05:01:00 Test Item Value Reference Range Interpretation Comments Neutrophils # (test code = Neutrophils 2.5 1.5-8.1 #) [place] 375092-07-21 05:01:00 Test Item Value Reference Range Interpretation Comments Lymphocytes # (test code = Lymphocytes 3.2 1.0-5.5 #) [place] 375092-07-21 05:01:00 Test Item Value Reference Range Interpretation Comments Monocytes # (test code 0.5 See_Comment [Aut omated message] The = Monocytes #) system which generated this result tra nsmitted reference range : <=0.8. The reference r kat was not used to int erpret this result as normal/abnormal . [facility] CenterFuqumifIGNYDTXAOF6825-00-96 05:01:00 Test Item Value Reference Range Interpretation Comments Eosinophils # (test code 0.1 See_Comment [A utomated message] The = Eosinophils #) system whic h generated this result tra nsmitted reference range : <=0.5. The reference r kat was not used to int erpret this result as normal/abnormal . [facility] CenterCARD[facility] XLIDMXD1943-56-76 05:01:00 Test Item Value Reference Range Interpretation Comments HS Troponin I (test code = HS Troponin 5 I) [facility] [id number] 05:01:00 Test Item Value Reference Range Interpretation Comments Glucose Lvl (test code = Glucose Lvl) 96 70-99 [facility]2022-07-21 05:01:00 Test Item Value Reference Range Interpretation Comments BUN (test code = BUN) 16 7-22 [facility]2022-07-21 05:01:00 Test Item Value Reference Range Interpretation Comments Creatinine Lvl (test code = Creatinine 0.73 0.50-1.40 Lvl) [facility]2022-07-21 05:01:00 Test Item Value Reference Range Interpretation Comments Sodium Lvl (test code = Sodium Lvl) 141 135-145 [facility]2022-07-21 05:01:00 Test Item Value Reference Range Interpretation Comments Potassium Lvl (test code = Potassium 3.6 3.5-5.1 Lvl) [facility]2022-07-21 05:01:00 Test Item Value Reference Range Interpretation Comments Chloride Lvl (test code = Chloride Lvl) 110 95-109 [facility]2022-07-21 05:01:00 Test Item Value Reference Range Interpretation Comments CO2 (test code = CO2) 25 24-32 [facility]2022-07-21 05:01:00 Test Item Value Reference Range Interpretation Comments Calcium Lvl (test code = Calcium Lvl) 9.3 8.5-10.5 [facility]2022-07-21 05:01:00 Test Item Value Reference Range Interpretation Comments Total Protein (test code = Total 7.2 6.4-8.4 Protein) [facility]2022-07-21 05:01:00 Test Item Value Reference Range Interpretation Comments Albumin Lvl (test code = Albumin Lvl) 3.7 3.5-5.0 [place] 506842-07-21 05:01:00 Test Item Value Reference Range Interpretation Comments ALT (test code = ALT) 59 See_Comment [Auto mated message] The system which ge nerated this result transmit arvind reference range : <=65. The reference range was not used to interpr et this result as mario l/abnormal. [place] 506842-07-21 05:01:00 Test Item Value Reference Range Interpretation Comments AST (test code = AST) 24 See_Comment [Auto mated message] The system which ge nerated this result transmit arvind reference range : <=37. The reference range was not used to interpr et this result as mario l/abnormal. [place] 506842-07-21 05:01:00 Test Item Value Reference Range Interpretation Comments Alk Phos (test code = Alk Phos) 60 39-136 [place] 506842-07-21 05:01:00 Test Item Value Reference Range Interpretation Comments Bili Total (test code = Bili Total) 0.2 0.2-1.3 [place] 506842-07-21 05:01:00 Test Item Value Reference Range Interpretation Comments AGAP (test code = AGAP) 9.6 10.0-20.0 [place] [address]-07-16 02:18:00 Test Item Value Reference Range Interpretation Comments Coronavirus (COVID-19) Detected MARLYN (test code = 1*ABN*(03/13/22 9:18 Coronavirus (COVID-19) PM) MARLYN) [place] 927102-07-16 02:18:00 Test Item Value Reference Range Interpretation Comments Coronavirus (COVID-19) Detected MARLYN (test code = 1*ABN*(03/13/22 9:18 Coronavirus (COVID-19) PM) MARLYN) [place] [address]-07-16 02:18:00 Test Item Value Reference Range Interpretation Comments Coronavirus (COVID-19) Detected MARLYN (test code = 1*ABN*(03/13/22 9:18 Coronavirus (COVID-19) PM) MARLYN) [place] [address]-07-16 02:18:00 Test Item Value Reference Range Interpretation Comments Coronavirus (COVID-19) Detected MARLYN (test code = 1*ABN*(03/13/22 9:18 Coronavirus (COVID-19) PM) MARLYN) [facility]:18:00 Test Item Value Reference Range Interpretation Comments Coronavirus (COVID-19) Detected MARLYN (test code = 1*ABN*(03/13/22 9:18 Coronavirus (COVID-19) PM) MARLYN) [facility]uszlfyXTLSDWVKMA4933-16-50 02:18:00 Test Item Value Reference Range Interpretation Comments Coronavirus (COVID-19) Detected MARLYN (test code = 1*ABN*(03/13/22 9:18 Coronavirus (COVID-19) PM) MARLYN) [facility]hoqirySFOCRCJGNT7652-39-63 02:18:00 Test Item Value Reference Range Interpretation Comments Coronavirus (COVID-19) Detected MARLYN (test code = 1*ABN*(03/13/22 9:18 Coronavirus (COVID-19) PM) MARLYN) [facility]mxalunGWAGLQKKOW3992-31-08 02:18:00 Test Item Value Reference Range Interpretation Comments Coronavirus (COVID-19) Detected MARLYN (test code = 1*ABN*(03/13/22 9:18 Coronavirus (COVID-19) PM) MARLYN) [facility]SkqeqbwQLZLCUAAJV4702-73-00 02:18:00 Test Item Value Reference Range Interpretation Comments Coronavirus (COVID-19) Detected MARLYN (test code = 1*ABN*(03/13/22 9:18 Coronavirus (COVID-19) PM) MARLYN) [facility] MARLYN+zhvig5111-23-32 03:21:53 Test Item Value Reference Range Interpretation Comments Symptomatic as defined by CDC? (test code = 47239-7) Employed in No Healthcare? (test code = 30670-9) Resident in a No congregate care setting (including nursing homes, residential care for people with intellectual and developmental disabilities, psychiatric treatment facilities, group homes, board and care homes, homeless halfway, foster care or other): (test code = 38777-5) ? (test [place] = No 05280-1) SARS-CoV-2 RNA Nph Ql NOT DETECTED Not Detected The novel MARLYN+probe (test code = coron lachos 21229-7) (SARS-CoV-2) ta rget nucleic acids a re not detected. COMMENT: The [employer] SARS-CoV-2 real-time RT-PCR based diagnostic test intended for the qualitative detection of SARS-CoV-2 viral RNA in a nasopharyngeal swab during acute phase of infection. This test was developed and its performance characteristics have been determined by the [facility]. This test has not been cleared or approved by the FDA. This testsystem has been authorized by the FDA under an Emergency Use Authorization (EUA). This test has beenvalidated in accordance with the FDA\\KU08096\\s Guidance document \\NO4055Y\\Policy for Coronavirus Disease-2019 Tests During the Public Health Emergency\\ZN1227F\\ (Revised December 2019) and is used for clinical purposes. It should not be regarded as investigational or for research\\FE1411W\\Detected\\JS3506C\\ results are indicative of the presence of the identified virus, but do not rule out bacterial infection or co-infection with other pathogens not detected by the test. Clinical correlation with patient his tory and other diagnostic information is necessary to determine patient infection status. \\UL2908Y\\Not Detected\\[id number]\\ results do not preclude SARS-CoV-2 and should not be used as the sole basis for treatment or other patient management decisions. Negative results must be combined with clinical observations, patient history, and/or epidemiological information.This laboratory is certified under the Clinical Laboratory Improvement Amendments (CLIA) as qualified to perform high complexity clinical laboratory testing.[facility] SARS-CoV-2 ORF1ab Resp Ql MARLYN+pyxgr6702-13-29 01:19:53 Test Item Value Reference Range Interpretation Comments Symptomatic as defined No by CDC? (test code = 96538-3) Hospitalized? (test No code = 44222-9) ICU? (test code = No 14194-4) Employed in No Healthcare? (test code = 52976-9) Resident in a No congregate care setting (including nursing homes, residential care for people with intellectual and developmental disabilities, psychiatric treatment facilities, group homes, board and care homes, homeless halfway, foster care or other): (test code = 07395-8) ? (test [place] = No 65280-2) SARS-CoV-2 ORF1ab Resp NOT DETECTED Not Detected INTER PRETATION: No Ql MARLYN+probe (test detectabl e levels code = 45327-8) of SARS-CoV- 2 Coronavirus (COVID-19) were present [...] n with SARS-CoV-2 Coronavirus (COVID-19). COMMENT: This [employer] SARS-CoV-2 molecular diagnostic assay utilizes Photo Finisher Mediated Amplification (TMA) technology to rapidly detect the SARS-CoV-2 (COVID-19) virus from respiratory samples. In accordance with the FDA's guidance document "Policy for Diagnostic Tests for Coronavirus Disease- 2019 during the Public Health Emergency", this test was developed, and its performance characteristics were verified by the [facility] molecular diagnostics laboratory and is authorized [...] actual/normal in Platelet poor plasma by Coagulation [id number] 00:00:00 Test Item Value Reference Range Interpretation Comments fact. VIII act. (test code = fact. VIII 106 act.) [facility] Willebrand factor (vWf).activity [Units/volume] in Platelet poor plasma by Xenyqmcpsoe8997-09-04 00:00:00 Test Item Value Reference Range Interpretation Comments ristocetin cofactor (test code = 57 ristocetin cofactor) [facility] MedicalaPTT in Platelet poor plasma by Coagulation ntsne5734-30-68 00:00:00 Test Item Value Reference Range Interpretation Comments PTT (test code = PTT) 28.5 sec 23.6-31.6 [facility] MedicalAndrostenedione [Mass/volume] in Serum or Jehlgi4945-29-43 00:00:00 Test Item Value Reference Range Interpretation Comments androstenedione (1) (test code = 20 NG/dL androstenedione (1)) [facility] MedicalPT/[id number] 00:00:00 Test Item Value Reference Range Interpretation Comments INR (test code = INR) 0.96 0.80-1.06 PT (test code = PT) 10.9 sec 9.1-11.9 [facility] Tjktruh79-Taqtzmfdnvbbrzuxzyt [Mass/volume] in Serum or Rjexvf6753-55-01 00:00:00 Test Item Value Reference Range Interpretation Comments 17-hydroxyprogesterone (test code = <10 see below 17-hydroxyprogesterone) [facility] MedicalaPTT in Blood by Coagulation cyazn2555-64-48 00:00:00 Test Item Value Reference Range Interpretation Comments P.T.T. (test code = P.T.T.) 30.9 [facility] MedicalChlamydia trachomatis and Neisseria gonorrhoeae rRNA panel - Specimen by MARLYN with probe qgtylkobn9218-25-94 00:00:00 Test Item Value Reference Range Interpretation Comments aptima combo 2 swab (CT) (test code = CT neg negative aptima combo 2 swab (CT)) aptima combo 2 swab (GC) (test code = GC neg negative aptima combo 2 swab (GC)) [facility] Medicalaptima swab vaginitis 2021-11-26 00:00:00 Test Item Value Reference Range Interpretation Comments bacterial vaginosis (test code = bv neg negative bacterial vaginosis) warner species (test code = C. spp neg negative warner species) warner glabrata (test code = C. gla neg negative warner glabrata) trichomonas vaginalis (CV/TV) trich pos negative A (test code = trichomonas vaginalis (CV/TV)) [facility] MedicalCBC panel - Blood by Automated [id number] 00:00:00 Test Item Value Reference Range Interpretation [...] 0.0-0.2 [facility] MedicalThyrotropin [Units/volume] in Serum or [id number] 00:00:00 Test Item Value Reference Range Interpretation Comments TSH (test code = TSH) 2.010 uIU/mL 0.178-4.530 [facility] MedicalComprehensive metabolic 2000 panel - Serum or Vcmspl3878-85-62 00:00:00 Test Item Value Reference Range Interpretation [...] 124.483 >60.000 (test code = eGFR mL/min/1.73A? rwandan) [facility] MedicalTestosterone [Mass/volume] in Serum or [id number] 00:00:00 Test Item Value Reference Range Interpretation Comments testosterone (test code = testosterone) < 2.5 8.4-48.1 L [facility] MedicalDehydroepiandrosterone sulfate (DHEA-S) [Mass/volume] in Serum or Rrpysa6719-16-06 00:00:00 Test Item Value Reference Range Interpretation Comments DHEA-S (test code = DHEA-S) 43.1 ug/dL 98.8-340.0 L [facility] MedicalFollitropin and Lutropin panel [Units/volume] - Serum or Plasma 2021-11-26 00:00:00 Test Item Value Reference Range Interpretation Comments LH (test code = LH) 2.9 mIU/mL FSH (test code = FSH) 6.8 mIU/mL [facility] MedicalProlactin [Mass/volume] in Serum or Otlgip8355-00-27 00:00:00 Test Item Value Reference Range Interpretation Comments prolactin (test code = prolactin) 115.0 NG/mL 4.8-23.3 [facility] - Serum or Tlxycy5625-42-98 00:00:00 Test Item Value Reference Range Interpretation [...] Serum or Plasma (test code = 2089-1) [facility] cppnf0757-85-71 00:00:00 Test Item Value Reference Range Interpretation Comments HPV thinprep (test code = HPV negative negative thinprep) [facility], [id number] 00:00:00 Test Item Value Reference Range Interpretation Comments LMP date: (test code = 09/09/2021 LMP date:) Pap, liquid-based nilm nilm (test code = Pap, liquid-based) source (liquid-based cervical (which cytology): (test code includes endocervical) = source (liquid-based cytology):) [facility] [id number] 21:13:00 Test Item Value Reference Range Interpretation Comments Glucose Lvl (test code = Glucose Lvl) 89 70-99 [facility] [employer] [id number] 21:13:00 Test Item Value Reference Range Interpretation Comments BUN (test code = BUN) 8 7-22 [facility] [employer] [id number] 21:13:00 Test Item Value Reference Range Interpretation Comments Creatinine Lvl (test code = Creatinine 0.55 0.50-1.40 Lvl) [facility] [employer] [id number] 21:13:00 Test Item Value Reference Range Interpretation Comments Sodium Lvl (test code = Sodium Lvl) 140 135-145 [facility] [employer] [id number] 21:13:00 Test Item Value Reference Range Interpretation Comments Potassium Lvl (test code = Potassium 3.5 3.5-5.1 Lvl) [facility]2021-05-24 21:13:00 Test Item Value Reference Range Interpretation Comments Chloride Lvl (test code = Chloride Lvl) 109 95-109 [place] 506841-05-24 21:13:00 Test Item Value Reference Range Interpretation Comments CO2 (test code = CO2) 27 24-32 [place] 506841-05-24 21:13:00 Test Item Value Reference Range Interpretation Comments Calcium Lvl (test code = Calcium Lvl) 9.0 8.5-10.5 [place] 506841-05-24 21:13:00 Test Item Value Reference Range Interpretation Comments AGAP (test code = AGAP) 7.5 10.0-20.0 [place] 506841-05-24 21:13:00 Test Item Value Reference Range Interpretation Comments eGFR (test code = eGFR) 126 [facility]2021-05-24 21:13:00 Test Item Value Reference Range Interpretation Comments Lactic Acid Lvl (test code = Lactic 0.6 0.5-2.2 Acid Lvl) [place] 797621-05-24 21:13:00 Test Item Value Reference Range Interpretation Comments hCG Tot (test code = hCG Tot) no gt [place] 375091-05-24 21:13:00 Test Item Value Reference Range Interpretation Comments WBC X 10x3 (test code = WBC X 10x3) 7.9 3.7-10.4 [place] 375091-05-24 21:13:00 Test Item Value Reference Range Interpretation Comments RBC X 10x6 (test code = RBC X 10x6) 4.80 4.20-5.40 [place] [address]-05-24 21:13:00 Test Item Value Reference Range Interpretation Comments Hgb (test code = Hgb) 12.4 12.0-16.0 [place] [address]-05-24 21:13:00 Test Item Value Reference Range Interpretation Comments Hct (test code = Hct) 37.9 36.0-48.0 [place] 375091-05-24 21:13:00 Test Item Value Reference Range Interpretation Comments MCV (test code = MCV) 78.9 80.0-98.[address]05-24 21:13:00 Test Item Value Reference Range Interpretation Comments MCH (test code = MCH) 25.7 pg 27.0-31.0 [place] 375091-05-24 21:13:00 Test Item Value Reference Range Interpretation Comments MCHC (test code = MCHC) 32.6 32.0-36.0 [place] 375091-05-24 21:13:00 Test Item Value Reference Range Interpretation Comments RDW (test code = RDW) 15.5 11.5-14.5 [place] 375091-05-24 21:13:00 Test Item Value Reference Range Interpretation Comments Platelet (test code = Platelet) 243 133-450 [place] 375091-05-24 21:13:00 Test Item Value Reference Range Interpretation Comments MPV (test code = MPV) 9.4 7.4-10.4 [place] 375091-05-24 21:13:00 Test Item Value Reference Range Interpretation Comments Segs (test code = Segs) 56.1 45.0-75.0 [place] 375091-05-24 21:13:00 Test Item Value Reference Range Interpretation Comments Lymphocytes (test code = Lymphocytes) 32.2 20.0-40.0 [place] 375091-05-24 21:13:00 Test Item Value Reference Range Interpretation Comments Monocytes (test code = Monocytes) 9.1 2.0-12.0 [place] 375091-05-24 21:13:00 Test Item Value Reference Range Interpretation Comments Eosinophils (test code = 2.2 See_Comment [A utomated message] The Eosinophils) system which ge nerated this result tra nsmitted reference range : <=4.0. The reference r kat was not used to int erpret this result as normal/abnormal . [place] [address]-05-24 21:13:00 Test Item Value Reference Range Interpretation Comments Basophils (test code = 0.4 See_Comment [Aut omated message] The Basophils) system which ge nerated this result tra nsmitted reference range : <=1.0. The reference r kat was not used to int erpret this result as normal/abnormal . [place] 375091-05-24 21:13:00 Test Item Value Reference Range Interpretation Comments Neutrophils # (test code = Neutrophils 4.4 1.5-8.1 #) [place] 375091-05-24 21:13:00 Test Item Value Reference Range Interpretation Comments Lymphocytes # (test code = Lymphocytes 2.5 1.0-5.5 #) [place] 375091-05-24 21:13:00 Test Item Value Reference Range Interpretation Comments Monocytes # (test code 0.7 See_Comment [Aut omated message] The = Monocytes #) system which generated this result tra nsmitted reference range : <=0.8. The reference r kat was not used to int erpret this result as normal/abnormal . [place] [address]-05-24 21:13:00 Test Item Value Reference Range Interpretation Comments Eosinophils # (test code 0.2 See_Comment [A utomated message] The = Eosinophils #) system whic h generated this result tra nsmitted reference range : <=0.5. The reference r kat was not used to int erpret this result as normal/abnormal . [place] 375091-05-24 21:13:00 Test Item Value Reference Range Interpretation Comments Microcyte (test code = 1+ *ABN*(01/20/21 Microcyte) 4:13 PM) [place] [address]-05-24 21:13:00 Test Item Value Reference Range Interpretation Comments Glucose Lvl (test code = Glucose Lvl) 89 70-99 [place] 506841-05-24 21:13:00 Test Item Value Reference Range Interpretation Comments BUN (test code = BUN) 8 7-22 [place] 506841-05-24 21:13:00 Test Item Value Reference Range Interpretation Comments Creatinine Lvl (test code = Creatinine 0.55 0.50-1.40 Lvl) [place] 506841-05-24 21:13:00 Test Item Value Reference Range Interpretation Comments Sodium Lvl (test code = Sodium Lvl) 140 135-145 [place] 506841-05-24 21:13:00 Test Item Value Reference Range Interpretation Comments Potassium Lvl (test code = Potassium 3.5 3.5-5.1 Lvl) [place] 506841-05-24 21:13:00 Test Item Value Reference Range Interpretation Comments Chloride Lvl (test code = Chloride Lvl) 109 95-109 [facility]2021-05-24 21:13:00 Test Item Value Reference Range Interpretation Comments CO2 (test code = CO2) 27 24-32 [place] 506841-05-24 21:13:00 Test Item Value Reference Range Interpretation Comments Calcium Lvl (test code = Calcium Lvl) 9.0 8.5-10.5 [place] 506841-05-24 21:13:00 Test Item Value Reference Range Interpretation Comments AGAP (test code = AGAP) 7.5 10.0-20.0 [facility]2021-05-24 21:13:00 Test Item Value Reference Range Interpretation Comments eGFR (test code = eGFR) 126 [facility]2021-05-24 21:13:00 Test Item Value Reference Range Interpretation Comments Lactic Acid Lvl (test code = Lactic 0.6 0.5-2.2 Acid Lvl) [place] 65375021-05-24 21:13:00 Test Item Value Reference Range Interpretation Comments hCG Tot (test code = hCG Tot) no gt [facility] 21:13:00 Test Item Value Reference Range Interpretation Comments WBC X 10x3 (test code = WBC X 10x3) 7.9 3.7-10.4 [place] 375091-05-24 21:13:00 Test Item Value Reference Range Interpretation Comments RBC X 10x6 (test code = RBC X 10x6) 4.80 4.20-5.40 [place] 375091-05-24 21:13:00 Test Item Value Reference Range Interpretation Comments Hgb (test code = Hgb) 12.4 12.0-16.0 [place] [address]-05-24 21:13:00 Test Item Value Reference Range Interpretation Comments Hct (test code = Hct) 37.9 36.0-48.0 [place] [address]-05-24 21:13:00 Test Item Value Reference Range Interpretation Comments MCV (test code = MCV) 78.9 80.0-98.0 [place] 375091-05-24 21:13:00 Test Item Value Reference Range Interpretation Comments MCH (test code = MCH) 25.7 pg 27.0-31.0 [place] 375091-05-24 21:13:00 Test Item Value Reference Range Interpretation Comments MCHC (test code = MCHC) 32.6 32.0-36.0 [place] [address]-05-24 21:13:00 Test Item Value Reference Range Interpretation Comments RDW (test code = RDW) 15.5 11.5-14.5 [place] [address]-05-24 21:13:00 Test Item Value Reference Range Interpretation Comments Platelet (test code = Platelet) 243 133-450 [place] [address]-05-24 21:13:00 Test Item Value Reference Range Interpretation Comments MPV (test code = MPV) 9.4 7.4-10.4 [place] [address]-05-24 21:13:00 Test Item Value Reference Range Interpretation Comments Segs (test code = Segs) 56.1 45.0-75.0 [place] [address]-05-24 21:13:00 Test Item Value Reference Range Interpretation Comments Lymphocytes (test code = Lymphocytes) 32.2 20.0-40.0 [place] [address]-05-24 21:13:00 Test Item Value Reference Range Interpretation Comments Monocytes (test code = Monocytes) 9.1 2.0-12.0 [place] [address]-05-24 21:13:00 Test Item Value Reference Range Interpretation Comments Eosinophils (test code = 2.2 See_Comment [A utomated message] The Eosinophils) system which ge nerated this result tra nsmitted reference range : <=4.0. The reference r kat was not used to int erpret this result as normal/abnormal . [place] 375091-05-24 21:13:00 Test Item Value Reference Range Interpretation Comments Basophils (test code = 0.4 See_Comment [Aut omated message] The Basophils) system which ge nerated this result tra nsmitted reference range : <=1.0. The reference r kat was not used to int erpret this result as normal/abnormal . [place] [address]-05-24 21:13:00 Test Item Value Reference Range Interpretation Comments Neutrophils # (test code = Neutrophils 4.4 1.5-8.1 #) [place] 375091-05-24 21:13:00 Test Item Value Reference Range Interpretation Comments Lymphocytes # (test code = Lymphocytes 2.5 1.0-5.5 #) [place] 375091-05-24 21:13:00 Test Item Value Reference Range Interpretation Comments Monocytes # (test code 0.7 See_Comment [Aut omated message] The = Monocytes #) system which generated this result tra nsmitted reference range : <=0.8. The reference r kat was not used to int erpret this result as normal/abnormal . [place] 375091-05-24 21:13:00 Test Item Value Reference Range Interpretation Comments Eosinophils # (test code 0.2 See_Comment [A utomated message] The = Eosinophils #) system whic h generated this result tra nsmitted reference range : <=0.5. The reference r kat was not used to int erpret this result as normal/abnormal . [place] 375091-05-24 21:13:00 Test Item Value Reference Range Interpretation Comments Microcyte (test code = 1+ *ABN*(01/20/21 Microcyte) 4:13 PM) [place] 506841-05-24 21:13:00 Test Item Value Reference Range Interpretation Comments Glucose Lvl (test code = Glucose Lvl) 89 70-99 [place] 506841-05-24 21:13:00 Test Item Value Reference Range Interpretation Comments BUN (test code = BUN) 8 7-22 [place] 506841-05-24 21:13:00 Test Item Value Reference Range Interpretation Comments Creatinine Lvl (test code = Creatinine 0.55 0.50-1.40 Lvl) [place] 506841-05-24 21:13:00 Test Item Value Reference Range Interpretation Comments Sodium Lvl (test code = Sodium Lvl) 140 135-145 [place] 506841-05-24 21:13:00 Test Item Value Reference Range Interpretation Comments Potassium Lvl (test code = Potassium 3.5 3.5-5.1 Lvl) [place] 506841-05-24 21:13:00 Test Item Value Reference Range Interpretation Comments Chloride Lvl (test code = Chloride Lvl) 109 95-109 [place] 506841-05-24 21:13:00 Test Item Value Reference Range Interpretation Comments CO2 (test code = CO2) 27 24-32 [facility]2021-05-24 21:13:00 Test Item Value Reference Range Interpretation Comments Calcium Lvl (test code = Calcium Lvl) 9.0 8.5-10.5 [place] 506841-05-24 21:13:00 Test Item Value Reference Range Interpretation Comments AGAP (test code = AGAP) 7.5 10.0-20.0 [place] 506841-05-24 21:13:00 Test Item Value Reference Range Interpretation Comments eGFR (test code = eGFR) 126 [facility]2021-05-24 21:13:00 Test Item Value Reference Range Interpretation Comments Lactic Acid Lvl (test code = Lactic 0.6 0.5-2.2 Acid Lvl) [place] 65375021-05-24 21:13:00 Test Item Value Reference Range Interpretation Comments hCG Tot (test code = hCG Tot) no gt [facility]hwqgl[facility]AMDKCPJSS1112-71[facility] 21:13:00 Test Item Value Reference Range Interpretation Comments WBC X 10x3 (test code = WBC X 10x3) 7.9 3.7-10.4 [place] 375091-05-24 21:13:00 Test Item Value Reference Range Interpretation Comments RBC X 10x6 (test code = RBC X 10x6) 4.80 4.20-5.40 [place] [address]-05-24 21:13:00 Test Item Value Reference Range Interpretation Comments Hgb (test code = Hgb) 12.4 12.0-16.0 [place] 375091-05-24 21:13:00 Test Item Value Reference Range Interpretation Comments Hct (test code = Hct) 37.9 36.0-48.0 [place] [address]-05-24 21:13:00 Test Item Value Reference Range Interpretation Comments MCV (test code = MCV) 78.9 80.0-98.0 [place] 375091-05-24 21:13:00 Test Item Value Reference Range Interpretation Comments MCH (test code = MCH) 25.7 pg 27.0-31.0 [place] 375091-05-24 21:13:00 Test Item Value Reference Range Interpretation Comments MCHC (test code = MCHC) 32.6 32.0-36.0 [place] 375091-05-24 21:13:00 Test Item Value Reference Range Interpretation Comments RDW (test code = RDW) 15.5 11.5-14.5 [place] 375091-05-24 21:13:00 Test Item Value Reference Range Interpretation Comments Platelet (test code = Platelet) 243 133-450 [place] 375091-05-24 21:13:00 Test Item Value Reference Range Interpretation Comments MPV (test code = MPV) 9.4 7.4-10.4 [place] [address]-05-24 21:13:00 Test Item Value Reference Range Interpretation Comments Segs (test code = Segs) 56.1 45.0-75.0 [place] [address]-05-24 21:13:00 Test Item Value Reference Range Interpretation Comments Lymphocytes (test code = Lymphocytes) 32.2 20.0-40.0 [place] 375091-05-24 21:13:00 Test Item Value Reference Range Interpretation Comments Monocytes (test code = Monocytes) 9.1 2.0-12.0 [place] 375091-05-24 21:13:00 Test Item Value Reference Range Interpretation Comments Eosinophils (test code = 2.2 See_Comment [A utomated message] The Eosinophils) system which nerated this result tra nsmitted reference range : <=4.0. The reference r kat was not used to int erpret this result as normal/abnormal . [place] 375091-05-24 21:13:00 Test Item Value Reference Range Interpretation Comments Basophils (test code = 0.4 See_Comment [Aut omated message] The Basophils) system which ge nerated this result tra nsmitted reference range : <=1.0. The reference r kat was not used to int erpret this result as normal/abnormal . [facility] 21:13:00 Test Item Value Reference Range Interpretation Comments Glucose Lvl (test code = Glucose Lvl) 89 70-99 [place] 506841-05-24 21:13:00 Test Item Value Reference Range Interpretation Comments BUN (test code = BUN) 8 7-22 [place] 506841-05-24 21:13:00 Test Item Value Reference Range Interpretation Comments Creatinine Lvl (test code = Creatinine 0.55 0.50-1.40 Lvl) [place] 506841-05-24 21:13:00 Test Item Value Reference Range Interpretation Comments Sodium Lvl (test code = Sodium Lvl) 140 135-145 [place] 506841-05-24 21:13:00 Test Item Value Reference Range Interpretation Comments Potassium Lvl (test code = Potassium 3.5 3.5-5.1 Lvl) [facility]2021-05-24 21:13:00 Test Item Value Reference Range Interpretation Comments Chloride Lvl (test code = Chloride Lvl) 109 95-109 [place] 506841-05-24 21:13:00 Test Item Value Reference Range Interpretation Comments CO2 (test code = CO2) 27 24-32 [place] 506841-05-24 21:13:00 Test Item Value Reference Range Interpretation Comments Calcium Lvl (test code = Calcium Lvl) 9.0 8.5-10.5 [place] 506841-05-24 21:13:00 Test Item Value Reference Range Interpretation Comments AGAP (test code = AGAP) 7.5 10.0-20.0 [place] 506841-05-24 21:13:00 Test Item Value Reference Range Interpretation Comments eGFR (test code = eGFR) 126 [facility]YrmbrnuRMGNKSRSEM2254-65-79 21:13:00 Test Item Value Reference Range Interpretation Comments Neutrophils # (test code = Neutrophils 4.4 1.5-8.1 #) [facility]2021-05-24 21:13:00 Test Item Value Reference Range Interpretation Comments Lactic Acid Lvl (test code = Lactic 0.6 0.5-2.2 Acid Lvl) [place] 797621-05-24 21:13:00 Test Item Value Reference Range Interpretation Comments hCG Tot (test code = hCG Tot) no gt [facility] HospitalEogocahICVDKSESCA5766-32-80 21:13:00 Test Item Value Reference Range Interpretation Comments WBC X 10x3 (test code = WBC X 10x3) 7.9 3.7-10.4 [facility] HospitalNddkujgSRQPKLUSJB8288-28-48 21:13:00 Test Item Value Reference Range Interpretation Comments RBC X 10x6 (test code = RBC X 10x6) 4.80 4.20-5.40 [place] 375091-05-24 21:13:00 Test Item Value Reference Range Interpretation Comments Hgb (test code = Hgb) 12.4 12.0-16.0 [place] 375091-05-24 21:13:00 Test Item Value Reference Range Interpretation Comments Hct (test code = Hct) 37.9 36.0-48.0 [place] 375091-05-24 21:13:00 Test Item Value Reference Range Interpretation Comments MCV (test code = MCV) 78.9 80.0-98.0 [place] [address]-05-24 21:13:00 Test Item Value Reference Range Interpretation Comments MCH (test code = MCH) 25.7 pg 27.0-31.0 [place] [address]-05-24 21:13:00 Test Item Value Reference Range Interpretation Comments MCHC (test code = MCHC) 32.6 32.0-36.0 [place] 375091-05-24 21:13:00 Test Item Value Reference Range Interpretation Comments RDW (test code = RDW) 15.5 11.5-14.5 [place] 375091-05-24 21:13:00 Test Item Value Reference Range Interpretation Comments Lymphocytes # (test code = Lymphocytes 2.5 1.0-5.5 #) [place] 375091-05-24 21:13:00 Test Item Value Reference Range Interpretation Comments Platelet (test code = Platelet) 243 133-450 [place] 375091-05-24 21:13:00 Test Item Value Reference Range Interpretation Comments MPV (test code = MPV) 9.4 7.4-10.4 [place] [address]-05-24 21:13:00 Test Item Value Reference Range Interpretation Comments Segs (test code = Segs) 56.1 45.0-75.0 [place] [address]-05-24 21:13:00 Test Item Value Reference Range Interpretation Comments Lymphocytes (test code = Lymphocytes) 32.2 20.0-40.0 [place] [address]-05-24 21:13:00 Test Item Value Reference Range Interpretation Comments Monocytes (test code = Monocytes) 9.1 2.0-12.0 [place] 375091-05-24 21:13:00 Test Item Value Reference Range Interpretation Comments Eosinophils (test code = 2.2 See_Comment [A utomated message] The Eosinophils) system which ge nerated this result tra nsmitted reference range : <=4.0. The reference r kat was not used to int erpret this result as normal/abnormal . [facility] HospitalWkyjlscGLVTPHNOSQ5247-83-41 21:13:00 Test Item Value Reference Range Interpretation Comments Basophils (test code = 0.4 See_Comment [Aut omated message] The Basophils) system which ge nerated this result tra nsmitted reference range : <=1.0. The reference r kat was not used to int erpret this result as normal/abnormal . [facility] HospitalZajpmemXBUQLOZIII7778-65-87 21:13:00 Test Item Value Reference Range Interpretation Comments Neutrophils # (test code = Neutrophils 4.4 1.5-8.1 #) [facility] HospitalVztkpfmURGLUQVISR9292-91-40 21:13:00 Test Item Value Reference Range Interpretation Comments Lymphocytes # (test code = Lymphocytes 2.5 1.0-5.5 #) [place] 375091-05-24 21:13:00 Test Item Value Reference Range Interpretation Comments Monocytes # (test code 0.7 See_Comment [Aut omated message] The = Monocytes #) system which generated this result tra nsmitted reference range : <=0.8. The reference r kat was not used to int erpret this result as normal/abnormal . [facility] HospitalJwqzbwqWUMVEWHNKQ8757-56-30 21:13:00 Test Item Value Reference Range Interpretation Comments Monocytes # (test code 0.7 See_Comment [Aut omated message] The = Monocytes #) system which generated this result tra nsmitted reference range : <=0.8. The reference r kat was not used to int erpret this result as normal/abnormal . [facility] HospitalVpfvrzwYIDPXDTNYH8196-66-79 21:13:00 Test Item Value Reference Range Interpretation Comments Eosinophils # (test code 0.2 See_Comment [A utomated message] The = Eosinophils #) system whic h generated this result tra nsmitted reference range : <=0.5. The reference r kat was not used to int erpret this result as normal/abnormal . [place] 375091-05-24 21:13:00 Test Item Value Reference Range Interpretation Comments Microcyte (test code = 1+ *ABN*(01/20/21 Microcyte) 4:13 PM) [place] 375091-05-24 21:13:00 Test Item Value Reference Range Interpretation Comments Eosinophils # (test code 0.2 See_Comment [A utomated message] The = Eosinophils #) system [email or web address] h generated this result tra nsmitted reference range : <=0.5. The reference r kat was not used to int erpret this result as normal/abnormal . [place] 375091-05-24 21:13:00 Test Item Value Reference Range Interpretation Comments Microcyte (test code = 1+ *ABN*(01/20/21 Microcyte) 4:13 PM) [place] 506841-05-24 21:13:00 Test Item Value Reference Range Interpretation Comments Glucose Lvl (test code = Glucose Lvl) 89 70-99 [facility]2021-05-24 21:13:00 Test Item Value Reference Range Interpretation Comments BUN (test code = BUN) 8 7-22 [place] 506841-05-24 21:13:00 Test Item Value Reference Range Interpretation Comments Creatinine Lvl (test code = Creatinine 0.55 0.50-1.40 Lvl) [facility]2021-05-24 21:13:00 Test Item Value Reference Range Interpretation Comments Sodium Lvl (test code = Sodium Lvl) 140 135-145 [place] 506841-05-24 21:13:00 Test Item Value Reference Range Interpretation Comments Potassium Lvl (test code = Potassium 3.5 3.5-5.1 Lvl) [place] 506841-05-24 21:13:00 Test Item Value Reference Range Interpretation Comments Chloride Lvl (test code = Chloride Lvl) 109 95-109 [place] 506841-05-24 21:13:00 Test Item Value Reference Range Interpretation Comments CO2 (test code = CO2) 27 24-32 [place] 506841-05-24 21:13:00 Test Item Value Reference Range Interpretation Comments Calcium Lvl (test code = Calcium Lvl) 9.0 8.5-10.5 [place] 506841-05-24 21:13:00 Test Item Value Reference Range Interpretation Comments AGAP (test code = AGAP) 7.5 10.0-20.0 [facility]2021-05-24 21:13:00 Test Item Value Reference Range Interpretation Comments eGFR (test code = eGFR) 126 [facility]2021-05-24 21:13:00 Test Item Value Reference Range Interpretation Comments Lactic Acid Lvl (test code = Lactic 0.6 0.5-2.2 Acid Lvl) [place] 65375021-05-24 21:13:00 Test Item Value Reference Range Interpretation Comments hCG Tot (test code = hCG Tot) no gt [facility] HospitalXyvilmcYDPFGAMQQQ9373-06-40 21:13:00 Test Item Value Reference Range Interpretation Comments WBC X 10x3 (test code = WBC X 10x3) 7.9 3.7-10.4 [facility] HospitalQbxeatxAFZQNEBPQR6367-15-80 21:13:00 Test Item Value Reference Range Interpretation Comments RBC X 10x6 (test code = RBC X 10x6) 4.80 4.20-5.40 [place] 375091-05-24 21:13:00 Test Item Value Reference Range Interpretation Comments Hgb (test code = Hgb) 12.4 12.0-16.0 [place] 375091-05-24 21:13:00 Test Item Value Reference Range Interpretation Comments Hct (test code = Hct) 37.9 36.0-48.0 [place] 375091-05-24 21:13:00 Test Item Value Reference Range Interpretation Comments MCV (test code = MCV) 78.9 80.0-98.0 [place] 375091-05-24 21:13:00 Test Item Value Reference Range Interpretation Comments MCH (test code = MCH) 25.7 pg 27.0-31.0 [place] 375091-05-24 21:13:00 Test Item Value Reference Range Interpretation Comments MCHC (test code = MCHC) 32.6 32.0-36.0 [place] 375091-05-24 21:13:00 Test Item Value Reference Range Interpretation Comments RDW (test code = RDW) 15.5 11.5-14.5 [facility] HospitalAagviglYZCEATMGMR3348-32-64 21:13:00 Test Item Value Reference Range Interpretation Comments Platelet (test code = Platelet) 243 133-450 [place] 375091-05-24 21:13:00 Test Item Value Reference Range Interpretation Comments MPV (test code = MPV) 9.4 7.4-10.4 [place] 375091-05-24 21:13:00 Test Item Value Reference Range Interpretation Comments Segs (test code = Segs) 56.1 45.0-75.0 [place] [address]-05-24 21:13:00 Test Item Value Reference Range Interpretation Comments Lymphocytes (test code = Lymphocytes) 32.2 20.0-40.0 [place] [address]-05-24 21:13:00 Test Item Value Reference Range Interpretation Comments Monocytes (test code = Monocytes) 9.1 2.0-12.0 [place] [address]-05-24 21:13:00 Test Item Value Reference Range Interpretation Comments Eosinophils (test code = 2.2 See_Comment [A utomated message] The Eosinophils) system which ge nerated this result tra nsmitted reference range : <=4.0. The reference r kat was not used to int erpret this result as normal/abnormal . [place] 375091-05-24 21:13:00 Test Item Value Reference Range Interpretation Comments Basophils (test code = 0.4 See_Comment [Aut omated message] The Basophils) system which ge nerated this result tra nsmitted reference range : <=1.0. The reference r kat was not used to int erpret this result as normal/abnormal . [place] 375091-05-24 21:13:00 Test Item Value Reference Range Interpretation Comments Neutrophils # (test code = Neutrophils 4.4 1.5-8.1 #) [place] 375091-05-24 21:13:00 Test Item Value Reference Range Interpretation Comments Lymphocytes # (test code = Lymphocytes 2.5 1.0-5.5 #) [place] 375091-05-24 21:13:00 Test Item Value Reference Range Interpretation Comments Monocytes # (test code 0.7 See_Comment [Aut omated message] The = Monocytes #) system which generated this result tra nsmitted reference range : <=0.8. The reference r kat was not used to int erpret this result as normal/abnormal . [place] 375091-05-24 21:13:00 Test Item Value Reference Range Interpretation Comments Eosinophils # (test code 0.2 See_Comment [A utomated message] The = Eosinophils #) system [employer] Document Preparationic h generated this result tra nsmitted reference range : <=0.5. The reference r kat was not used to int erpret this result as normal/abnormal . [place] 375091-05-24 21:13:00 Test Item Value Reference Range Interpretation Comments Microcyte (test code = 1+ *ABN*(01/20/21 Microcyte) 4:13 PM) [place] [address]-05-24 21:13:00 Test Item Value Reference Range Interpretation Comments Glucose Lvl (test code = Glucose Lvl) 89 70-99 [place] 506841-05-24 21:13:00 Test Item Value Reference Range Interpretation Comments BUN (test code = BUN) 8 7-22 [place] 506841-05-24 21:13:00 Test Item Value Reference Range Interpretation Comments Creatinine Lvl (test code = Creatinine 0.55 0.50-1.40 Lvl) [place] 506841-05-24 21:13:00 Test Item Value Reference Range Interpretation Comments Sodium Lvl (test code = Sodium Lvl) 140 135-145 [place] 506841-05-24 21:13:00 Test Item Value Reference Range Interpretation Comments Potassium Lvl (test code = Potassium 3.5 3.5-5.1 Lvl) [place] 506841-05-24 21:13:00 Test Item Value Reference Range Interpretation Comments Chloride Lvl (test code = Chloride Lvl) 109 95-109 [place] 506841-05-24 21:13:00 Test Item Value Reference Range Interpretation Comments CO2 (test code = CO2) 27 24-32 [place] 506841-05-24 21:13:00 Test Item Value Reference Range Interpretation Comments Calcium Lvl (test code = Calcium Lvl) 9.0 8.5-10.5 [place] 506841-05-24 21:13:00 Test Item Value Reference Range Interpretation Comments AGAP (test code = AGAP) 7.5 10.0-20.0 [facility]2021-05-24 21:13:00 Test Item Value Reference Range Interpretation Comments eGFR (test code = eGFR) 126 [facility]2021-05-24 21:13:00 Test Item Value Reference Range Interpretation Comments Lactic Acid Lvl (test code = Lactic 0.6 0.5-2.2 Acid Lvl) [facility]ObjswjoFEOCGQGFQFGZJ5515-74-88 21:13:00 Test Item Value Reference Range Interpretation Comments hCG Tot (test code = hCG Tot) no gt [facility] HospitalJkzeneuTPTCOCHULD5472-89-92 21:13:00 Test Item Value Reference Range Interpretation Comments WBC X 10x3 (test code = WBC X 10x3) 7.9 3.7-10.4 [facility] HospitalTcwcjbnFELARQFOOI8397-37-96 21:13:00 Test Item Value Reference Range Interpretation Comments RBC X 10x6 (test code = RBC X 10x6) 4.80 4.20-5.40 [facility] HospitalQrrozyrKUTEVAAOMG9692-81-38 21:13:00 Test Item Value Reference Range Interpretation Comments Hgb (test code = Hgb) 12.4 12.0-16.0 [facility] HospitalWufhqcgWQCAWROMPC7594-91-08 21:13:00 Test Item Value Reference Range Interpretation Comments Hct (test code = Hct) 37.9 36.0-48.0 [facility] HospitalDcxgmtlBVWUGMSNII6033-95-32 21:13:00 Test Item Value Reference Range Interpretation Comments MCV (test code = MCV) 78.9 80.0-98.0 [facility] HospitalRvqrqhsUFZPGDONID1421-39-36 21:13:00 Test Item Value Reference Range Interpretation Comments MCH (test code = MCH) 25.7 pg 27.0-31.0 [facility] HospitalLeqvdvyUODAKWLPWL8699-87-20 21:13:00 Test Item Value Reference Range Interpretation Comments MCHC (test code = MCHC) 32.6 32.0-36.0 [facility] HospitalEgorhqjFXQRBWXLAQ6992-73-24 21:13:00 Test Item Value Reference Range Interpretation Comments RDW (test code = RDW) 15.5 11.5-14.5 [facility] HospitalNarzthsTSXZYXOEMJ1103-89-11 21:13:00 Test Item Value Reference Range Interpretation Comments Platelet (test code = Platelet) 243 133-450 [facility] HospitalFdhmgvzCIRVCWSQIY8506-89-44 21:13:00 Test Item Value Reference Range Interpretation Comments MPV (test code = MPV) 9.4 7.4-10.4 [facility] HospitalRzbzonzJNQEBJSIDS4432-73-35 21:13:00 Test Item Value Reference Range Interpretation Comments Segs (test code = Segs) 56.1 45.0-75.0 [place] 375091-05-24 21:13:00 Test Item Value Reference Range Interpretation Comments Lymphocytes (test code = Lymphocytes) 32.2 20.0-40.0 [place] 375091-05-24 21:13:00 Test Item Value Reference Range Interpretation Comments Monocytes (test code = Monocytes) 9.1 2.0-12.0 [place] 375091-05-24 21:13:00 Test Item Value Reference Range Interpretation Comments Eosinophils (test code = 2.2 See_Comment [A utomated message] The Eosinophils) system which ge nerated this result tra nsmitted reference range : <=4.0. The reference r kat was not used to int erpret this result as normal/abnormal . [facility] HospitalZrqwhbaFYOKGLBEZO2017-37-86 21:13:00 Test Item Value Reference Range Interpretation Comments Basophils (test code = 0.4 See_Comment [Aut omated message] The Basophils) system which ge nerated this result tra nsmitted reference range : <=1.0. The reference r kat was not used to int erpret this result as normal/abnormal . [facility] HospitalJvxcfpoUOYFAFLODX4027-73-19 21:13:00 Test Item Value Reference Range Interpretation Comments Neutrophils # (test code = Neutrophils 4.4 1.5-8.1 #) [place] 375091-05-24 21:13:00 Test Item Value Reference Range Interpretation Comments Lymphocytes # (test code = Lymphocytes 2.5 1.0-5.5 #) [place] 375091-05-24 21:13:00 Test Item Value Reference Range Interpretation Comments Monocytes # (test code 0.7 See_Comment [Aut omated message] The = Monocytes #) system which generated this result tra nsmitted reference range : <=0.8. The reference r kat was not used to int erpret this result as normal/abnormal . [place] 375091-05-24 21:13:00 Test Item Value Reference Range Interpretation Comments Eosinophils # (test code 0.2 See_Comment [A utomated message] The = Eosinophils #) system [facility] generated this result tra nsmitted reference range : <=0.5. The reference r kat was not used to int erpret this result as normal/abnormal . [facility] HospitalWnqumsuROXSLQTZMT7539-25-20 21:13:00 Test Item Value Reference Range Interpretation Comments Microcyte (test code = 1+ *ABN*(01/20/21 Microcyte) 4:13 PM) [facility]2021-05-24 21:13:00 Test Item Value Reference Range Interpretation Comments Glucose Lvl (test code = Glucose Lvl) 89 70-99 [facility]2021-05-24 21:13:00 Test Item Value Reference Range Interpretation Comments BUN (test code = BUN) 8 7-22 [facility]2021-05-24 21:13:00 Test Item Value Reference Range Interpretation Comments Creatinine Lvl (test code = Creatinine 0.55 0.50-1.40 Lvl) [facility]2021-05-24 21:13:00 Test Item Value Reference Range Interpretation Comments Sodium Lvl (test code = Sodium Lvl) 140 135-145 [facility]Ring[facility]chaRAY[facility] 23518ZEKMN9224-03-13 21:13:00 Test Item Value Reference Range Interpretation Comments Potassium Lvl (test code = Potassium 3.5 3.5-5.1 Lvl) [facility] HospitalRingCaptchaFORMERLY [facility]ERSFIFH0113-66-81 21:13:00 Test Item Value Reference Range Interpretation Comments Chloride Lvl (test code = Chloride Lvl) 109 95-109 [place] 506841-05-24 21:13:00 Test Item Value Reference Range Interpretation Comments CO2 (test code = CO2) 27 24-32 [facility]2021-05-24 21:13:00 Test Item Value Reference Range Interpretation Comments Calcium Lvl (test code = Calcium Lvl) 9.0 8.5-10.5 [place] 506841-05-24 21:13:00 Test Item Value Reference Range Interpretation Comments AGAP (test code = AGAP) 7.5 10.0-20.0 [place] 506841-05-24 21:13:00 Test Item Value Reference Range Interpretation Comments eGFR (test code = eGFR) 126 [facility]2021-05-24 21:13:00 Test Item Value Reference Range Interpretation Comments Lactic Acid Lvl (test code = Lactic 0.6 0.5-2.2 Acid Lvl) [facility]DppajazKQVTIUSMJXQMX9579-51-81 21:13:00 Test Item Value Reference Range Interpretation Comments hCG Tot (test code = hCG Tot) no gt [facility] HospitalGrqidpyBEBJWFUNRT5139-98-61 21:13:00 Test Item Value Reference Range Interpretation Comments WBC X 10x3 (test code = WBC X 10x3) 7.9 3.7-10.4 [facility] HospitalIrmtlxeEGTOVCVNYW5824-89-48 21:13:00 Test Item Value Reference Range Interpretation Comments RBC X 10x6 (test code = RBC X 10x6) 4.80 4.20-5.40 [facility] HospitalZaxzgvyCGJFWRHZJJ2770-91-81 21:13:00 Test Item Value Reference Range Interpretation Comments Hgb (test code = Hgb) 12.4 12.0-16.0 [facility] HospitalKqhsjupGNIQWYSZYA1777-44-96 21:13:00 Test Item Value Reference Range Interpretation Comments Hct (test code = Hct) 37.9 36.0-48.0 [facility] HospitalUjkjzmoDGZQEOEFPO1008-67-89 21:13:00 Test Item Value Reference Range Interpretation Comments MCV (test code = MCV) 78.9 80.0-98.0 [facility] HospitalKfgfhudUHUBGVTQKK3432-31-22 21:13:00 Test Item Value Reference Range Interpretation Comments MCH (test code = MCH) 25.7 pg 27.0-31.0 [facility] HospitalPphuwnvLFQOYABVRP3382-44-89 21:13:00 Test Item Value Reference Range Interpretation Comments MCHC (test code = MCHC) 32.6 32.0-36.0 [facility] HospitalFktqjsdQQPXNUIACB4882-95-90 21:13:00 Test Item Value Reference Range Interpretation Comments RDW (test code = RDW) 15.5 11.5-14.5 [facility] HospitalAtwfzxkUEXNSJPOFE6915-61-98 21:13:00 Test Item Value Reference Range Interpretation Comments Platelet (test code = Platelet) 243 133-450 [facility] HospitalPvjyfwcDEMQDNZCEF1129-30-37 21:13:00 Test Item Value Reference Range Interpretation Comments MPV (test code = MPV) 9.4 7.4-10.4 [place] 375091-05-24 21:13:00 Test Item Value Reference Range Interpretation Comments Segs (test code = Segs) 56.1 45.0-75.0 [place] [address]-05-24 21:13:00 Test Item Value Reference Range Interpretation Comments Lymphocytes (test code = Lymphocytes) 32.2 20.0-40.0 [place] [address]-05-24 21:13:00 Test Item Value Reference Range Interpretation Comments Monocytes (test code = Monocytes) 9.1 2.0-12.0 [place] [address]-05-24 21:13:00 Test Item Value Reference Range Interpretation Comments Eosinophils (test code = 2.2 See_Comment [A utomated message] The Eosinophils) system which ge nerated this result tra nsmitted reference range : <=4.0. The reference r kat was not used to int erpret this result as normal/abnormal . [place] [address]-05-24 21:13:00 Test Item Value Reference Range Interpretation Comments Basophils (test code = 0.4 See_Comment [Aut omated message] The Basophils) system which ge nerated this result tra nsmitted reference range : <=1.0. The reference r kat was not used to int erpret this result as normal/abnormal . [place] [address]-05-24 21:13:00 Test Item Value Reference Range Interpretation Comments Neutrophils # (test code = Neutrophils 4.4 1.5-8.1 #) [place] [address]-05-24 21:13:00 Test Item Value Reference Range Interpretation Comments Lymphocytes # (test code = Lymphocytes 2.5 1.0-5.5 #) [place] [address]-05-24 21:13:00 Test Item Value Reference Range Interpretation Comments Monocytes # (test code 0.7 See_Comment [Aut omated message] The = Monocytes #) system which generated this result tra nsmitted reference range : <=0.8. The reference r kat was not used to int erpret this result as normal/abnormal . [place] [address]-05-24 21:13:00 Test Item Value Reference Range Interpretation Comments Eosinophils # (test code 0.2 See_Comment [A utomated message] The = Eosinophils #) system whic h generated this result tra nsmitted reference range : <=0.5. The reference r kat was not used to int erpret this result as normal/abnormal . [place] 375091-05-24 21:13:00 Test Item Value Reference Range Interpretation Comments Microcyte (test code = 1+ *ABN*(01/20/21 Microcyte) 4:13 PM) [place] 506841-05-24 21:13:00 Test Item Value Reference Range Interpretation Comments Glucose Lvl (test code = Glucose Lvl) 89 70-99 [place] 506841-05-24 21:13:00 Test Item Value Reference Range Interpretation Comments BUN (test code = BUN) 8 7-22 [place] 506841-05-24 21:13:00 Test Item Value Reference Range Interpretation Comments Creatinine Lvl (test code = Creatinine 0.55 0.50-1.40 Lvl) [place] [id number] 21:13:00 Test Item Value Reference Range Interpretation Comments Sodium Lvl (test code = Sodium Lvl) 140 135-145 [place] 506841-05-24 21:13:00 Test Item Value Reference Range Interpretation Comments Potassium Lvl (test code = Potassium 3.5 3.5-5.1 Lvl) [place] 506841-05-24 21:13:00 Test Item Value Reference Range Interpretation Comments Chloride Lvl (test code = Chloride Lvl) 109 95-109 [place] 506841-05-24 21:13:00 Test Item Value Reference Range Interpretation Comments CO2 (test code = CO2) 27 24-32 [place] 506841-05-24 21:13:00 Test Item Value Reference Range Interpretation Comments Calcium Lvl (test code = Calcium Lvl) 9.0 8.5-10.5 [place] 506841-05-24 21:13:00 Test Item Value Reference Range Interpretation Comments AGAP (test code = AGAP) 7.5 10.0-20.0 [place] 506841-05-24 21:13:00 Test Item Value Reference Range Interpretation Comments eGFR (test code = eGFR) 126 [place] 506841-05-24 21:13:00 Test Item Value Reference Range Interpretation Comments Lactic Acid Lvl (test code = Lactic 0.6 0.5-2.2 Acid Lvl) [facility]PQGMMXGKDKBGM5539-90-75 21:13:00 Test Item Value Reference Range Interpretation Comments hCG Tot (test code = hCG Tot) no gt [facility]KjrjqkbEALCLUUICW0251-64-78 21:13:00 Test Item Value Reference Range Interpretation Comments WBC X 10x3 (test code = WBC X 10x3) 7.9 3.7-10.4 [facility] HospitalRvntveuYNDOJHCUSS2348-23-51 21:13:00 Test Item Value Reference Range Interpretation Comments RBC X 10x6 (test code = RBC X 10x6) 4.80 4.20-5.40 [facility]EkwqkttSXHKELSXSG8193-95-14 21:13:00 Test Item Value Reference Range Interpretation Comments Hgb (test code = Hgb) 12.4 12.0-16.0 [facility] HospitalXxiodpgUGZBMVHJFW5633-51-02 21:13:00 Test Item Value Reference Range Interpretation Comments Hct (test code = Hct) 37.9 36.0-48.0 [facility] HospitalLiuugjrVMKDTDSQIX2330-17-69 21:13:00 Test Item Value Reference Range Interpretation Comments MCV (test code = MCV) 78.9 80.0-98.0 [facility] HospitalIvxohspPRSKQQITBD7879-02-03 21:13:00 Test Item Value Reference Range Interpretation Comments MCH (test code = MCH) 25.7 pg 27.0-31.0 [facility] HospitalWflgbvnKHNQLBMDEV4236-59-64 21:13:00 Test Item Value Reference Range Interpretation Comments MCHC (test code = MCHC) 32.6 32.0-36.0 [facility] HospitalMbewvanEHIIYLKZYA1548-24-70 21:13:00 Test Item Value Reference Range Interpretation Comments RDW (test code = RDW) 15.5 11.5-14.5 [place] 375091-05-24 21:13:00 Test Item Value Reference Range Interpretation Comments Platelet (test code = Platelet) 243 133-450 [facility] HospitalYucshtmXEGFTBIMLH0802-42-52 21:13:00 Test Item Value Reference Range Interpretation Comments MPV (test code = MPV) 9.4 7.4-10.4 [facility] HospitalHyaqrxpUZORQLJMIN1751-82-68 21:13:00 Test Item Value Reference Range Interpretation Comments Segs (test code = Segs) 56.1 45.0-75.0 [facility] HospitalFzcwskuYXHHHZDLLY0162-76-91 21:13:00 Test Item Value Reference Range Interpretation Comments Lymphocytes (test code = Lymphocytes) 32.2 20.0-40.0 [facility] HospitalTnnxjtmYQOMGAXHHN3426-00-94 21:13:00 Test Item Value Reference Range Interpretation Comments Monocytes (test code = Monocytes) 9.1 2.0-12.0 [facility] HospitalKibbmhxVVXJLUUULK3768-39-44 21:13:00 Test Item Value Reference Range Interpretation Comments Eosinophils (test code = 2.2 See_Comment [A utomated message] The Eosinophils) system which ge nerated this result tra nsmitted reference range : <=4.0. The reference r kat was not used to int erpret this result as normal/abnormal . [facility] HospitalNbqmxojVYOKBWGWYB4650-22-45 21:13:00 Test Item Value Reference Range Interpretation Comments Basophils (test code = 0.4 See_Comment [Aut omated message] The Basophils) system which ge nerated this result tra nsmitted reference range : <=1.0. The reference r kat was not used to int erpret this result as normal/abnormal . [facility] HospitalYfdcptuCUCRDRUGXV9677-64-82 21:13:00 Test Item Value Reference Range Interpretation Comments Neutrophils # (test code = Neutrophils 4.4 1.5-8.1 #) [facility] HospitalFipmqbdTYAFOZYROS2707-72-10 21:13:00 Test Item Value Reference Range Interpretation Comments Lymphocytes # (test code = Lymphocytes 2.5 1.0-5.5 #) [facility] HospitalPqgsoarMDUFNYDTSH2605-46-39 21:13:00 Test Item Value Reference Range Interpretation Comments Monocytes # (test code 0.7 See_Comment [Aut omated message] The = Monocytes #) system which generated this result tra nsmitted reference range : <=0.8. The reference r kat was not used to int erpret this result as normal/abnormal . [facility] HospitalYtubvpjIONFMAYYBM8654-27-32 21:13:00 Test Item Value Reference Range Interpretation Comments Eosinophils # (test code 0.2 See_Comment [A utomated message] The = Eosinophils #) system whic h generated this result tra nsmitted reference range : <=0.5. The reference r kat was not used to int erpret this result as normal/abnormal . [place] 375091-05-24 21:13:00 Test Item Value Reference Range Interpretation Comments Microcyte (test code = 1+ *ABN*(01/20/21 Microcyte) 4:13 PM) [place] 506841-05-24 21:13:00 Test Item Value Reference Range Interpretation Comments Glucose Lvl (test code = Glucose Lvl) 89 70-99 [place] 506841-05-24 21:13:00 Test Item Value Reference Range Interpretation Comments BUN (test code = BUN) 8 7-22 [place] 506841-05-24 21:13:00 Test Item Value Reference Range Interpretation Comments Creatinine Lvl (test code = Creatinine 0.55 0.50-1.40 Lvl) [place] 506841-05-24 21:13:00 Test Item Value Reference Range Interpretation Comments Sodium Lvl (test code = Sodium Lvl) 140 135-145 [place] 506841-05-24 21:13:00 Test Item Value Reference Range Interpretation Comments Potassium Lvl (test code = Potassium 3.5 3.5-5.1 Lvl) [place] 506841-05-24 21:13:00 Test Item Value Reference Range Interpretation Comments Chloride Lvl (test code = Chloride Lvl) 109 95-109 [place] 506841-05-24 21:13:00 Test Item Value Reference Range Interpretation Comments CO2 (test code = CO2) 27 24-32 [place] 506841-05-24 21:13:00 Test Item Value Reference Range Interpretation Comments Calcium Lvl (test code = Calcium Lvl) 9.0 8.5-10.5 [place] 506841-05-24 21:13:00 Test Item Value Reference Range Interpretation Comments AGAP (test code = AGAP) 7.5 10.0-20.0 [place] 506841-05-24 21:13:00 Test Item Value Reference Range Interpretation Comments eGFR (test code = eGFR) 126 [place] 506841-05-24 21:13:00 Test Item Value Reference Range Interpretation Comments Lactic Acid Lvl (test code = Lactic 0.6 0.5-2.2 Acid Lvl) [facility]ohJPZJWKVJFUSMU9936-92-48 21:13:00 Test Item Value Reference Range Interpretation Comments hCG Tot (test code = hCG Tot) no gt [facility] HospitalAkvbbinWTGPIAFQTN2015-88-39 21:13:00 Test Item Value Reference Range Interpretation Comments WBC X 10x3 (test code = WBC X 10x3) 7.9 3.7-10.4 [place] 375091-05-24 21:13:00 Test Item Value Reference Range Interpretation Comments RBC X 10x6 (test code = RBC X 10x6) 4.80 4.20-5.40 [facility] HospitalQeoatqwXHAZOKDDTK2284-93-95 21:13:00 Test Item Value Reference Range Interpretation Comments Hgb (test code = Hgb) 12.4 12.0-16.0 [place] 375091-05-24 21:13:00 Test Item Value Reference Range Interpretation Comments Hct (test code = Hct) 37.9 36.0-48.0 [facility] HospitalZgxpjovTZLSBSITTQ9572-84-96 21:13:00 Test Item Value Reference Range Interpretation Comments MCV (test code = MCV) 78.9 80.0-98.0 [facility] HospitalJkfnjhoIZCIIMYEJP2923-16-77 21:13:00 Test Item Value Reference Range Interpretation Comments MCH (test code = MCH) 25.7 pg 27.0-31.0 [facility] HospitalMcermjvTGKPSWKDGM1262-18-43 21:13:00 Test Item Value Reference Range Interpretation Comments MCHC (test code = MCHC) 32.6 32.0-36.0 [facility] HospitalItbvjybTTFUWTETCA2013-67-81 21:13:00 Test Item Value Reference Range Interpretation Comments RDW (test code = RDW) 15.5 11.5-14.5 [facility] HospitalOsfxqetGGWRUFNMBO2790-06-08 21:13:00 Test Item Value Reference Range Interpretation Comments Platelet (test code = Platelet) 243 133-450 [facility] HospitalLhgtkrfWKMRSUOGOW8003-51-63 21:13:00 Test Item Value Reference Range Interpretation Comments MPV (test code = MPV) 9.4 7.4-10.4 [facility] HospitalLqtzwfeVGCHVZHCGR7260-75-72 21:13:00 Test Item Value Reference Range Interpretation Comments Segs (test code = Segs) 56.1 45.0-75.0 [facility] HospitalOmxyfxnABOTGYPEKC6442-73-79 21:13:00 Test Item Value Reference Range Interpretation Comments Lymphocytes (test code = Lymphocytes) 32.2 20.0-40.0 [facility] HospitalPnfexvpVBFGXHBNKG9112-03-47 21:13:00 Test Item Value Reference Range Interpretation Comments Monocytes (test code = Monocytes) 9.1 2.0-12.0 [facility] HospitalWbgzeisYJWGHPNPEV9049-97-98 21:13:00 Test Item Value Reference Range Interpretation Comments Eosinophils (test code = 2.2 See_Comment [A utomated message] The Eosinophils) system which ge nerated this result tra nsmitted reference range : <=4.0. The reference r kat was not used to int erpret this result as normal/abnormal . [facility] HospitalBmgjfibWQDBNUYQWH0413-34-70 21:13:00 Test Item Value Reference Range Interpretation Comments Basophils (test code = 0.4 See_Comment [Aut omated message] The Basophils) system which ge nerated this result tra nsmitted reference range : <=1.0. The reference r kat was not used to int erpret this result as normal/abnormal . [facility] HospitalQkemfqaOHHPVVDSIK8667-44-23 21:13:00 Test Item Value Reference Range Interpretation Comments Neutrophils # (test code = Neutrophils 4.4 1.5-8.1 #) [facility] HospitalUcxiulwFKBJNUFTFY2709-93-37 21:13:00 Test Item Value Reference Range Interpretation Comments Lymphocytes # (test code = Lymphocytes 2.5 1.0-5.5 #) [facility] HospitalYbjhrfcSVJHZWGETX2374-50-82 21:13:00 Test Item Value Reference Range Interpretation Comments Monocytes # (test code 0.7 See_Comment [Aut omated message] The = Monocytes #) system which generated this result tra nsmitted reference range : <=0.8. The reference r kat was not used to int erpret this result as normal/abnormal . [place] 375091-05-24 21:13:00 Test Item Value Reference Range Interpretation Comments Eosinophils # (test code 0.2 See_Comment [A utomated message] The = Eosinophils #) system whic h generated this result tra nsmitted reference range : <=0.5. The reference r kat was not used to int erpret this result as normal/abnormal . [facility] HospitalIzynyzrBMOGPCRBJU5204-59-76 21:13:00 Test Item Value Reference Range Interpretation Comments Microcyte (test code = 1+ *ABN*(01/20/21 Microcyte) 4:13 PM) [facility]2016-01-21 13:03:00 Test Item Value Reference Range Interpretation Comments Magnesium Lvl (test code = Magnesium 1.9 1.8-2.4 Lvl) [facility]2016-01-21 13:03:00 Test Item Value Reference Range Interpretation Comments eGFR (test code = eGFR) 127 [facility]2016-01-21 13:03:00 Test Item Value Reference Range Interpretation Comments Creatinine Lvl (test code = Creatinine 0.60 0.50-1.40 Lvl) [facility]2016-01-21 13:03:00 Test Item Value Reference Range Interpretation Comments Glucose Lvl (test code = Glucose Lvl) 82 70-99 [facility]2016-01-21 13:03:00 Test Item Value Reference Range Interpretation Comments BUN (test code = BUN) 7 7-22 [facility]2016-01-21 13:03:00 Test Item Value Reference Range Interpretation Comments Potassium Lvl (test code = Potassium 4.1 3.5-5.1 Lvl) [facility]2016-01-21 13:03:00 Test Item Value Reference Range Interpretation Comments Sodium Lvl (test code = Sodium Lvl) 141 135-145 [facility]2016-01-21 13:03:00 Test Item Value Reference Range Interpretation Comments Chloride Lvl (test code = Chloride Lvl) 108 95-109 [facility]2016-01-21 13:03:00 Test Item Value Reference Range Interpretation Comments CO2 (test code = CO2) 20 24-32 [facility]2016-01-21 13:03:00 Test Item Value Reference Range Interpretation Comments Calcium Lvl (test code = Calcium Lvl) 8.9 8.5-10.5 [facility]2016-01-21 13:03:00 Test Item Value Reference Range Interpretation Comments AGAP (test code = AGAP) 17.1 10.0-20.0 [facility]KrbmcscISYQSGKTOQ6726-26-56 13:03:00 Test Item Value Reference Range Interpretation Comments Lymphocytes # (test code = Lymphocytes 2.3 1.0-5.5 #) [facility] HospitalFqeflnbHIUTRIJKPF6627-90-45 13:03:00 Test Item Value Reference Range Interpretation Comments Basophils (test code = 1.0 See_Comment [Aut omated message] The Basophils) system which ge nerated this result tra nsmitted reference range : <=1.0. The reference r kat was not used to int erpret this result as normal/abnormal . [facility] HospitalXlhwttqELWQLTAKWI9387-45-46 13:03:00 Test Item Value Reference Range Interpretation Comments Segs-Bands # (test code = Segs-Bands #) 3.3 1.5-8.1 [facility] HospitalUfsgdspKRFKVKKVKC0392-22-61 13:03:00 Test Item Value Reference Range Interpretation Comments Eosinophils (test code = 2.5 See_Comment [A utomated message] The Eosinophils) system which ge nerated this result tra nsmitted reference range : <=4.0. The reference r kat was not used to int erpret this result as normal/abnormal . [facility] HospitalLibikwiDOAIHOJGGJ5431-50-38 13:03:00 Test Item Value Reference Range Interpretation Comments Eosinophils # (test code 0.2 See_Comment [A utomated message] The = Eosinophils #) system whic h generated this result tra nsmitted reference range : <=0.5. The reference r kat was not used to int erpret this result as normal/abnormal . [facility] HospitalZipzsgcHZLNVRJMLN1649-79-37 13:03:00 Test Item Value Reference Range Interpretation Comments Monocytes # (test code 0.7 See_Comment [Aut omated message] The = Monocytes #) system which generated this result tra nsmitted reference range : <=0.8. The reference r kat was not used to int erpret this result as normal/abnormal . [facility] HospitalMurdejxKGQTNRVKGN9158-70-87 13:03:00 Test Item Value Reference Range Interpretation Comments Microcyte (test code = 1+ *ABN*(09/19/15 Microcyte) 7:03 AM) [facility] HospitalNslugapYIWDQWZTUC3411-36-77 13:03:00 Test Item Value Reference Range Interpretation Comments Basophils # (test code 0.1 See_Comment [Aut omated message] The = Basophils #) system which generated this result tra nsmitted reference range : <=0.2. The reference r kat was not used to int erpret this result as normal/abnormal . [facility] HospitalJafxabuLOQAQJKSIT7859-41-33 13:03:00 Test Item Value Reference Range Interpretation Comments Monocytes (test code = Monocytes) 10.4 2.0-12.0 [facility] HospitalZddcletGKZGYNINUC7785-70-53 13:03:00 Test Item Value Reference Range Interpretation Comments Lymphocytes (test code = Lymphocytes) 35.3 20.0-40.0 [facility] HospitalWzinoxvQIJZTGTQIB6815-83-77 13:03:00 Test Item Value Reference Range Interpretation Comments Segs (test code = Segs) 50.8 45.0-75.0 [facility] HospitalXcwqdbbEWSPUPGAHR8228-40-90 13:03:00 Test Item Value Reference Range Interpretation Comments MCHC (test code = MCHC) 30.5 32.0-36.0 [facility] HospitalJnaztvmTIQVQDFCZF0599-83-86 13:03:00 Test Item Value Reference Range Interpretation Comments Platelet (test code = Platelet) 175 133-450 [facility] HospitalWgoxwzvNVBXXHLNUX6588-50-82 13:03:00 Test Item Value Reference Range Interpretation Comments RDW (test code = RDW) 17.1 11.5-14.5 [facility] HospitalNkuozskHWESPLXLRC4639-19-83 13:03:00 Test Item Value Reference Range Interpretation Comments MCV (test code = MCV) 78.4 80.0-98.0 [facility] HospitalYrxdruqJONWJOIYNU0121-32-29 13:03:00 Test Item Value Reference Range Interpretation Comments MCH (test code = MCH) 24.0 pg 27.0-31.0 [facility] HospitalLhqxgyoNJPPEERTHQ5172-84-92 13:03:00 Test Item Value Reference Range Interpretation Comments RBC (test code = RBC) 5.15 4.20-5.40 [facility] HospitalGjvcknhIFHOOQCYHJ4444-48-71 13:03:00 Test Item Value Reference Range Interpretation Comments Hct (test code = Hct) 40.4 36.0-48.0 [facility] HospitalSnebdurGSPVYOHUNY8658-12-35 13:03:00 Test Item Value Reference Range Interpretation Comments WBC (test code = WBC) 6.5 3.7-10.4 [facility] HospitalZohjfxvMTVWRVNWGV8446-81-91 13:03:00 Test Item Value Reference Range Interpretation Comments MPV (test code = MPV) 10.2 7.4-10.4 [facility] HospitalUdoghqdNOIXOVTTVK5361-84-60 13:03:00 Test Item Value Reference Range Interpretation Comments Hgb (test code = Hgb) 12.3 12.0-16.0 [facility]2016-01-21 13:03:00 Test Item Value Reference Range Interpretation Comments Magnesium Lvl (test code = Magnesium 1.9 1.8-2.4 Lvl) [facility]2016-01-21 13:03:00 Test Item Value Reference Range Interpretation Comments eGFR (test code = eGFR) 127 [facility]2016-01-21 13:03:00 Test Item Value Reference Range Interpretation Comments Creatinine Lvl (test code = Creatinine 0.60 0.50-1.40 Lvl) [facility]2016-01-21 13:03:00 Test Item Value Reference Range Interpretation Comments Glucose Lvl (test code = Glucose Lvl) 82 70-99 [facility]2016-01-21 13:03:00 Test Item Value Reference Range Interpretation Comments BUN (test code = BUN) 7 7-22 [facility]2016-01-21 13:03:00 Test Item Value Reference Range Interpretation Comments Potassium Lvl (test code = Potassium 4.1 3.5-5.1 Lvl) [facility]2016-01-21 13:03:00 Test Item Value Reference Range Interpretation Comments Sodium Lvl (test code = Sodium Lvl) 141 135-145 [facility]2016-01-21 13:03:00 Test Item Value Reference Range Interpretation Comments Chloride Lvl (test code = Chloride Lvl) 108 95-109 [facility]2016-01-21 13:03:00 Test Item Value Reference Range Interpretation Comments CO2 (test code = CO2) 20 24-32 [facility]2016-01-21 13:03:00 Test Item Value Reference Range Interpretation Comments Calcium Lvl (test code = Calcium Lvl) 8.9 8.5-10.5 [facility]2016-01-21 13:03:00 Test Item Value Reference Range Interpretation Comments AGAP (test code = AGAP) 17.1 10.0-20.0 [facility] HospitalYmeapfyMXVVGKOTYY8275-39-68 13:03:00 Test Item Value Reference Range Interpretation Comments Lymphocytes # (test code = Lymphocytes 2.3 1.0-5.5 #) [facility] HospitalQiqcdhpKCBOKBGNYA0861-22-54 13:03:00 Test Item Value Reference Range Interpretation Comments Basophils (test code = 1.0 See_Comment [Aut omated message] The Basophils) system which ge nerated this result tra nsmitted reference range : <=1.0. The reference r kat was not used to int erpret this result as normal/abnormal . [facility] HospitalGedmktqGSKKDPATFR8636-55-20 13:03:00 Test Item Value Reference Range Interpretation Comments Segs-Bands # (test code = Segs-Bands #) 3.3 1.5-8.1 [facility] HospitalFrfwgsfQMHFJSSCGF6741-11-82 13:03:00 Test Item Value Reference Range Interpretation Comments Eosinophils (test code = 2.5 See_Comment [A utomated message] The Eosinophils) system which ge nerated this result tra nsmitted reference range : <=4.0. The reference r kat was not used to int erpret this result as normal/abnormal . [facility] HospitalJhvrchoUIGUUEIQXL6795-89-49 13:03:00 Test Item Value Reference Range Interpretation Comments Eosinophils # (test code 0.2 See_Comment [A utomated message] The = Eosinophils #) system wh h generated this result tra nsmitted reference range : <=0.5. The reference r kat was not used to int erpret this result as normal/abnormal . [facility] HospitalLksmerzSYHTMHNUNI0254-28-22 13:03:00 Test Item Value Reference Range Interpretation Comments Monocytes # (test code 0.7 See_Comment [Aut omated message] The = Monocytes #) system which generated this result tra nsmitted reference range : <=0.8. The reference r kat was not used to int erpret this result as normal/abnormal . [facility] HospitalLmbprbsYEOVVICVUM9749-14-07 13:03:00 Test Item Value Reference Range Interpretation Comments Microcyte (test code = 1+ *ABN*(09/19/15 Microcyte) 7:03 AM) [facility] HospitalNlldyybKUYMFXCJZV4958-86-24 13:03:00 Test Item Value Reference Range Interpretation Comments Basophils # (test code 0.1 See_Comment [Aut omated message] The = Basophils #) system which generated this result tra nsmitted reference range : <=0.2. The reference r kat was not used to int erpret this result as normal/abnormal . [facility] HospitalUbwnunbRSMRYUCLZR4793-34-39 13:03:00 Test Item Value Reference Range Interpretation Comments Monocytes (test code = Monocytes) 10.4 2.0-12.0 [facility] HospitalQjyitmbTPZCCXUFHU2693-03-86 13:03:00 Test Item Value Reference Range Interpretation Comments Lymphocytes (test code = Lymphocytes) 35.3 20.0-40.0 [facility] HospitalSqgzbtsTFHXSLQPWS8342-56-48 13:03:00 Test Item Value Reference Range Interpretation Comments Segs (test code = Segs) 50.8 45.0-75.0 [facility] HospitalItrnlbtACAWCKBFED2540-25-27 13:03:00 Test Item Value Reference Range Interpretation Comments MCHC (test code = MCHC) 30.5 32.0-36.0 [facility] HospitalBuxcjccOALFXCTOVH0602-13-99 13:03:00 Test Item Value Reference Range Interpretation Comments Platelet (test code = Platelet) 175 133-450 [facility] HospitalLfezsipCVGJGQFJRL1452-79-44 13:03:00 Test Item Value Reference Range Interpretation Comments RDW (test code = RDW) 17.1 11.5-14.5 [facility] HospitalQuvwzxaVALYOBXBBP2428-57-20 13:03:00 Test Item Value Reference Range Interpretation Comments MCV (test code = MCV) 78.4 80.0-98.0 [facility] HospitalQdkasuvYJZQKZPMHJ4522-56-53 13:03:00 Test Item Value Reference Range Interpretation Comments MCH (test code = MCH) 24.0 pg 27.0-31.0 [facility] HospitalVmqbhznRVHQFPRVQU8500-47-96 13:03:00 Test Item Value Reference Range Interpretation Comments RBC (test code = RBC) 5.15 4.20-5.40 [facility] HospitalTqsfqktMFBCFHLATZ5583-22-14 13:03:00 Test Item Value Reference Range Interpretation Comments Hct (test code = Hct) 40.4 36.0-48.0 [facility] HospitalLyfuwoxANCYCIYXTG4275-77-26 13:03:00 Test Item Value Reference Range Interpretation Comments WBC (test code = WBC) 6.5 3.7-10.4 [facility] HospitalEdarohmTBNRYKDURQ5598-25-92 13:03:00 Test Item Value Reference Range Interpretation Comments MPV (test code = MPV) 10.2 7.4-10.4 [facility] HospitalYueivckEEMRLZZHUO0078-44-91 13:03:00 Test Item Value Reference Range Interpretation Comments Hgb (test code = Hgb) 12.3 12.0-16.0 [facility]2016-01-21 13:03:00 Test Item Value Reference Range Interpretation Comments Magnesium Lvl (test code = Magnesium 1.9 1.8-2.4 Lvl) [facility]2016-01-21 13:03:00 Test Item Value Reference Range Interpretation Comments eGFR (test code = eGFR) 127 [facility]2016-01-21 13:03:00 Test Item Value Reference Range Interpretation Comments Creatinine Lvl (test code = Creatinine 0.60 0.50-1.40 Lvl) [facility]2016-01-21 13:03:00 Test Item Value Reference Range Interpretation Comments Glucose Lvl (test code = Glucose Lvl) 82 70-99 [facility]2016-01-21 13:03:00 Test Item Value Reference Range Interpretation Comments BUN (test code = BUN) 7 7-22 [facility]2016-01-21 13:03:00 Test Item Value Reference Range Interpretation Comments Potassium Lvl (test code = Potassium 4.1 3.5-5.1 Lvl) [facility]2016-01-21 13:03:00 Test Item Value Reference Range Interpretation Comments Sodium Lvl (test code = Sodium Lvl) 141 135-145 [facility]2016-01-21 13:03:00 Test Item Value Reference Range Interpretation Comments Chloride Lvl (test code = Chloride Lvl) 108 95-109 [facility]2016-01-21 13:03:00 Test Item Value Reference Range Interpretation Comments CO2 (test code = CO2) 20 24-32 [facility]2016-01-21 13:03:00 Test Item Value Reference Range Interpretation Comments Calcium Lvl (test code = Calcium Lvl) 8.9 8.5-10.5 [facility]2016-01-21 13:03:00 Test Item Value Reference Range Interpretation Comments AGAP (test code = AGAP) 17.1 10.0-20.0 [facility]xp[facility]IMO9683[facility]52-38 13:03:00 Test Item Value Reference Range Interpretation Comments Lymphocytes # (test code = Lymphocytes 2.3 1.0-5.5 #) [facility]FtzsduwVZEFDPADNM9795-00-31 13:03:00 Test Item Value Reference Range Interpretation Comments Basophils (test code = 1.0 See_Comment [Aut omated message] The Basophils) system which ge nerated this result tra nsmitted reference range : <=1.0. The reference r kat was not used to int erpret this result as normal/abnormal . [facility] HospitalXwfshmvJJGKADDMGR2335-33-37 13:03:00 Test Item Value Reference Range Interpretation Comments Segs-Bands # (test code = Segs-Bands #) 3.3 1.5-8.1 [facility] HospitalOrpaonbQHIZOGAXHS1239-37-60 13:03:00 Test Item Value Reference Range Interpretation Comments Eosinophils (test code = 2.5 See_Comment [A utomated message] The Eosinophils) system which ge nerated this result tra nsmitted reference range : <=4.0. The reference r kat was not used to int erpret this result as normal/abnormal . [facility] HospitalEyqrkfdWUEVIBSIML0840-22-55 13:03:00 Test Item Value Reference Range Interpretation Comments Eosinophils # (test code 0.2 See_Comment [A utomated message] The = Eosinophils #) system whic h generated this result tra nsmitted reference range : <=0.5. The reference r kat was not used to int erpret this result as normal/abnormal . [facility] HospitalBgemudbVEGNGAPHBX5217-67-15 13:03:00 Test Item Value Reference Range Interpretation Comments Monocytes # (test code 0.7 See_Comment [Aut omated message] The = Monocytes #) system which generated this result tra nsmitted reference range : <=0.8. The reference r kat was not used to int erpret this result as normal/abnormal . [facility] HospitalJiuzgbmASUQNVHFTI5974-27-66 13:03:00 Test Item Value Reference Range Interpretation Comments Microcyte (test code = 1+ *ABN*(09/19/15 Microcyte) 7:03 AM) [facility] HospitalFkraxkaSRKGMSQFKY4039-11-77 13:03:00 Test Item Value Reference Range Interpretation Comments Basophils # (test code 0.1 See_Comment [Aut omated message] The = Basophils #) system which generated this result tra nsmitted reference range : <=0.2. The reference r kat was not used to int erpret this result as normal/abnormal . [facility] HospitalQfezbpfSZSYCTVRAV1603-99-75 13:03:00 Test Item Value Reference Range Interpretation Comments Monocytes (test code = Monocytes) 10.4 2.0-12.0 [facility] HospitalPdxzpddUBGOWBLPLF5853-96-77 13:03:00 Test Item Value Reference Range Interpretation Comments Lymphocytes (test code = Lymphocytes) 35.3 20.0-40.0 [facility] HospitalDgsoevcSFTRZZNMMJ7228-34-76 13:03:00 Test Item Value Reference Range Interpretation Comments Segs (test code = Segs) 50.8 45.0-75.0 [facility] HospitalMrosipiRJCJRKMTGE5382-53-43 13:03:00 Test Item Value Reference Range Interpretation Comments MCHC (test code = MCHC) 30.5 32.0-36.0 [facility] HospitalSfzhhacLHRGTXNUOK3702-82-68 13:03:00 Test Item Value Reference Range Interpretation Comments Platelet (test code = Platelet) 175 133-450 [facility] HospitalGkpztbnIRSSMMAKFA4792-54-03 13:03:00 Test Item Value Reference Range Interpretation Comments RDW (test code = RDW) 17.1 11.5-14.5 [facility] HospitalGuobbldOPIBCVSSOE8889-82-88 13:03:00 Test Item Value Reference Range Interpretation Comments MCV (test code = MCV) 78.4 80.0-98.0 [facility] HospitalJyhkfunFEDLOZEMEN7892-24-71 13:03:00 Test Item Value Reference Range Interpretation Comments MCH (test code = MCH) 24.0 pg 27.0-31.0 [facility] HospitalUjlhfvtNPRMQPDCCQ9131-84-36 13:03:00 Test Item Value Reference Range Interpretation Comments RBC (test code = RBC) 5.15 4.20-5.40 [facility]2016-01-21 13:03:00 Test Item Value Reference Range Interpretation Comments Magnesium Lvl (test code = Magnesium 1.9 1.8-2.4 Lvl) [facility] HospitalFjlthbqIBSZJSTXQC8693-34-55 13:03:00 Test Item Value Reference Range Interpretation Comments Hct (test code = Hct) 40.4 36.0-48.0 [facility] HospitalSpiyhfaJBWSTPBYCK3590-58-84 13:03:00 Test Item Value Reference Range Interpretation Comments WBC (test code = WBC) 6.5 3.7-10.4 [facility] HospitalWkhlnqjDSZEYEVPCU7625-74-57 13:03:00 Test Item Value Reference Range Interpretation Comments MPV (test code = MPV) 10.2 7.4-10.4 [facility] HospitalAdvespxGSTRZDWMYV9131-64-96 13:03:00 Test Item Value Reference Range Interpretation Comments Hgb (test code = Hgb) 12.3 12.0-16.0 [facility]2016-01-21 13:03:00 Test Item Value Reference Range Interpretation Comments eGFR (test code = eGFR) 127 [facility]2016-01-21 13:03:00 Test Item Value Reference Range Interpretation Comments Creatinine Lvl (test code = Creatinine 0.60 0.50-1.40 Lvl) [facility]2016-01-21 13:03:00 Test Item Value Reference Range Interpretation Comments Glucose Lvl (test code = Glucose Lvl) 82 70-99 [facility]2016-01-21 13:03:00 Test Item Value Reference Range Interpretation Comments BUN (test code = BUN) 7 7-22 [facility]2016-01-21 13:03:00 Test Item Value Reference Range Interpretation Comments Potassium Lvl (test code = Potassium 4.1 3.5-5.1 Lvl) [facility]2016-01-21 13:03:00 Test Item Value Reference Range Interpretation Comments Sodium Lvl (test code = Sodium Lvl) 141 135-145 [facility]2016-01-21 13:03:00 Test Item Value Reference Range Interpretation Comments Chloride Lvl (test code = Chloride Lvl) 108 95-109 [facility]2016-01-21 13:03:00 Test Item Value Reference Range Interpretation Comments CO2 (test code = CO2) 20 24-32 [facility]2016-01-21 13:03:00 Test Item Value Reference Range Interpretation Comments Calcium Lvl (test code = Calcium Lvl) 8.9 8.5-10.5 [facility]2016-01-21 13:03:00 Test Item Value Reference Range Interpretation Comments AGAP (test code = AGAP) 17.1 10.0-20.0 [facility] HospitalDttihosBCSUEUNJHY5156-44-65 13:03:00 Test Item Value Reference Range Interpretation Comments Lymphocytes # (test code = Lymphocytes 2.3 1.0-5.5 #) [facility] HospitalMxsjqbzVCYMTYSUZV3258-33-02 13:03:00 Test Item Value Reference Range Interpretation Comments Basophils (test code = 1.0 See_Comment [Aut omated message] The Basophils) system which ge nerated this result tra nsmitted reference range : <=1.0. The reference r kat was not used to int erpret this result as normal/abnormal . [facility] HospitalDzyqcpcLSQPFKOLKX9655-13-46 13:03:00 Test Item Value Reference Range Interpretation Comments Segs-Bands # (test code = Segs-Bands #) 3.3 1.5-8.1 [facility] HospitalXsaywbaASKIDNPKNV3838-10-13 13:03:00 Test Item Value Reference Range Interpretation Comments Eosinophils (test code = 2.5 See_Comment [A utomated message] The Eosinophils) system which ge nerated this result tra nsmitted reference range : <=4.0. The reference r kat was not used to int erpret this result as normal/abnormal . [facility] HospitalXazusmsBKAAOLVYDY8880-49-24 13:03:00 Test Item Value Reference Range Interpretation Comments Eosinophils # (test code 0.2 See_Comment [A utomated message] The = Eosinophils #) system whic h generated this result tra nsmitted reference range : <=0.5. The reference r kat was not used to int erpret this result as normal/abnormal . [facility] HospitalWagjyhlZQETVBMASH4445-85-77 13:03:00 Test Item Value Reference Range Interpretation Comments Monocytes # (test code 0.7 See_Comment [Aut omated message] The = Monocytes #) system which generated this result tra nsmitted reference range : <=0.8. The reference r kat was not used to int erpret this result as normal/abnormal . [facility] HospitalPaadijmVMKZGIWOVP7029-52-59 13:03:00 Test Item Value Reference Range Interpretation Comments Microcyte (test code = 1+ *ABN*(09/19/15 Microcyte) 7:03 AM) [facility] HospitalAfoidgqRNMJHWUWAN0742-28-67 13:03:00 Test Item Value Reference Range Interpretation Comments Basophils # (test code 0.1 See_Comment [Aut omated message] The = Basophils #) system which generated this result tra nsmitted reference range : <=0.2. The reference r kat was not used to int erpret this result as normal/abnormal . [facility] HospitalTrrdxswYHATISZPTB3123-59-15 13:03:00 Test Item Value Reference Range Interpretation Comments Monocytes (test code = Monocytes) 10.4 2.0-12.0 [facility] HospitalCxyejpwDASULUVPLK5641-19-73 13:03:00 Test Item Value Reference Range Interpretation Comments Lymphocytes (test code = Lymphocytes) 35.3 20.0-40.0 [facility] HospitalPrspxbnRRUDSOKKTR8697-66-41 13:03:00 Test Item Value Reference Range Interpretation Comments Segs (test code = Segs) 50.8 45.0-75.0 [facility] HospitalDjhwoocFKAFYGRKJZ7229-01-15 13:03:00 Test Item Value Reference Range Interpretation Comments MCHC (test code = MCHC) 30.5 32.0-36.0 [facility] HospitalNbkwasfNKLQBTZDXU0944-36-54 13:03:00 Test Item Value Reference Range Interpretation Comments Platelet (test code = Platelet) 175 133-450 [facility] HospitalCpfefhsFNROCZXNOW9787-75-75 13:03:00 Test Item Value Reference Range Interpretation Comments RDW (test code = RDW) 17.1 11.5-14.5 [facility] HospitalNkhlmryHWNNGAQNOF4758-44-56 13:03:00 Test Item Value Reference Range Interpretation Comments MCV (test code = MCV) 78.4 80.0-98.0 [facility] HospitalEbnxsgxCQZYJUOTWM5193-37-22 13:03:00 Test Item Value Reference Range Interpretation Comments MCH (test code = MCH) 24.0 pg 27.0-31.0 [facility] HospitalGhmwolxELTLDDCPPR7315-83-52 13:03:00 Test Item Value Reference Range Interpretation Comments RBC (test code = RBC) 5.15 4.20-5.40 [facility] HospitalTtccaenTDPWQZAXVC7502-62-33 13:03:00 Test Item Value Reference Range Interpretation Comments Hct (test code = Hct) 40.4 36.0-48.0 [facility] HospitalGjrxvynCKAQQUXZIG0578-12-27 13:03:00 Test Item Value Reference Range Interpretation Comments WBC (test code = WBC) 6.5 3.7-10.4 [facility] HospitalLafbjtuCIROBALEBW7419-25-58 13:03:00 Test Item Value Reference Range Interpretation Comments MPV (test code = MPV) 10.2 7.4-10.4 [facility] HospitalIrtmmkmROUYEGDRXZ3104-23-90 13:03:00 Test Item Value Reference Range Interpretation Comments Hgb (test code = Hgb) 12.3 12.0-16.0 [facility]2016-01-21 13:03:00 Test Item Value Reference Range Interpretation Comments Magnesium Lvl (test code = Magnesium 1.9 1.8-2.4 Lvl) [facility]2016-01-21 13:03:00 Test Item Value Reference Range Interpretation Comments eGFR (test code = eGFR) 127 [facility]2016-01-21 13:03:00 Test Item Value Reference Range Interpretation Comments Creatinine Lvl (test code = Creatinine 0.60 0.50-1.40 Lvl) [facility]2016-01-21 13:03:00 Test Item Value Reference Range Interpretation Comments Glucose Lvl (test code = Glucose Lvl) 82 70-99 [facility]2016-01-21 13:03:00 Test Item Value Reference Range Interpretation Comments BUN (test code = BUN) 7 7-22 [facility]2016-01-21 13:03:00 Test Item Value Reference Range Interpretation Comments Potassium Lvl (test code = Potassium 4.1 3.5-5.1 Lvl) [facility]2016-01-21 13:03:00 Test Item Value Reference Range Interpretation Comments Sodium Lvl (test code = Sodium Lvl) 141 135-145 [facility]2016-01-21 13:03:00 Test Item Value Reference Range Interpretation Comments Chloride Lvl (test code = Chloride Lvl) 108 95-109 [facility]2016-01-21 13:03:00 Test Item Value Reference Range Interpretation Comments CO2 (test code = CO2) 20 24-32 [facility]2016-01-21 13:03:00 Test Item Value Reference Range Interpretation Comments Calcium Lvl (test code = Calcium Lvl) 8.9 8.5-10.5 [facility]2016-01-21 13:03:00 Test Item Value Reference Range Interpretation Comments AGAP (test code = AGAP) 17.1 10.0-20.0 [facility] HospitalDnaunjoHAJJTURDJE8619-62-55 13:03:00 Test Item Value Reference Range Interpretation Comments Lymphocytes # (test code = Lymphocytes 2.3 1.0-5.5 #) [facility] HospitalDayacqdTDKFGBVOZZ1998-58-88 13:03:00 Test Item Value Reference Range Interpretation Comments Basophils (test code = 1.0 See_Comment [Aut omated message] The Basophils) system which ge nerated this result tra nsmitted reference range : <=1.0. The reference r kat was not used to int erpret this result as normal/abnormal . [facility] HospitalNeogumxMTVHNBLGLU2733-46-35 13:03:00 Test Item Value Reference Range Interpretation Comments Segs-Bands # (test code = Segs-Bands #) 3.3 1.5-8.1 [facility] HospitalJthfdzwJKCOERBRPU8550-59-30 13:03:00 Test Item Value Reference Range Interpretation Comments Eosinophils (test code = 2.5 See_Comment [A utomated message] The Eosinophils) system which ge nerated this result tra nsmitted reference range : <=4.0. The reference r kat was not used to int erpret this result as normal/abnormal . [facility] HospitalWzumxkkMEZYNURWCN2072-21-02 13:03:00 Test Item Value Reference Range Interpretation Comments Eosinophils # (test code 0.2 See_Comment [A utomated message] The = Eosinophils #) system whic h generated this result tra nsmitted reference range : <=0.5. The reference r kat was not used to int erpret this result as normal/abnormal . [facility] HospitalEnoxuhaCCMZIVFRSM8963-93-29 13:03:00 Test Item Value Reference Range Interpretation Comments Monocytes # (test code 0.7 See_Comment [Aut omated message] The = Monocytes #) system which generated this result tra nsmitted reference range : <=0.8. The reference r kat was not used to int erpret this result as normal/abnormal . [facility] HospitalRnpbijzCBPXASWXWU6786-32-18 13:03:00 Test Item Value Reference Range Interpretation Comments Microcyte (test code = 1+ *ABN*(09/19/15 Microcyte) 7:03 AM) [facility] HospitalQfatkftLQBGVPNJCS4100-98-68 13:03:00 Test Item Value Reference Range Interpretation Comments Basophils # (test code 0.1 See_Comment [Aut omated message] The = Basophils #) system which generated this result tra nsmitted reference range : <=0.2. The reference r kat was not used to int erpret this result as normal/abnormal . [facility] HospitalLwbcuenFLWQCHVYAF3635-28-38 13:03:00 Test Item Value Reference Range Interpretation Comments Monocytes (test code = Monocytes) 10.4 2.0-12.0 [facility] HospitalZqwwxohYYSFGYQPCX7669-26-78 13:03:00 Test Item Value Reference Range Interpretation Comments Lymphocytes (test code = Lymphocytes) 35.3 20.0-40.0 [facility] HospitalTdkffxhXZNJAPMWWN5234-16-33 13:03:00 Test Item Value Reference Range Interpretation Comments Segs (test code = Segs) 50.8 45.0-75.0 [facility] HospitalCuvudmlRGAYPBSTLG5714-00-89 13:03:00 Test Item Value Reference Range Interpretation Comments MCHC (test code = MCHC) 30.5 32.0-36.0 [facility] HospitalJlhxoksWNUHRQJAHE2421-37-54 13:03:00 Test Item Value Reference Range Interpretation Comments Platelet (test code = Platelet) 175 133-450 [facility] HospitalPqfvkdzESLDSVYJGU8039-70-96 13:03:00 Test Item Value Reference Range Interpretation Comments RDW (test code = RDW) 17.1 11.5-14.5 [facility] HospitalXcmtkviYCBTXYNHLX7166-30-79 13:03:00 Test Item Value Reference Range Interpretation Comments MCV (test code = MCV) 78.4 80.0-98.0 [facility] HospitalSejrgtiEJHXFIFRWQ9466-02-77 13:03:00 Test Item Value Reference Range Interpretation Comments MCH (test code = MCH) 24.0 pg 27.0-31.0 [facility] HospitalBhgovqiRMBDWLPHML1473-66-82 13:03:00 Test Item Value Reference Range Interpretation Comments RBC (test code = RBC) 5.15 4.20-5.40 [facility] HospitalOacxhsuWSNYUBQWQB4833-88-19 13:03:00 Test Item Value Reference Range Interpretation Comments Hct (test code = Hct) 40.4 36.0-48.0 [facility] HospitalBidctruEKYEMGOGJS8312-24-89 13:03:00 Test Item Value Reference Range Interpretation Comments WBC (test code = WBC) 6.5 3.7-10.4 [facility] HospitalRzmltdwGYUNAGCQOK6920-51-11 13:03:00 Test Item Value Reference Range Interpretation Comments MPV (test code = MPV) 10.2 7.4-10.4 [facility] HospitalXcglzchPRKMUNHTYO5609-65-21 13:03:00 Test Item Value Reference Range Interpretation Comments Hgb (test code = Hgb) 12.3 12.0-16.0 [facility]2016-01-21 13:03:00 Test Item Value Reference Range Interpretation Comments Magnesium Lvl (test code = Magnesium 1.9 1.8-2.4 Lvl) [facility]2016-01-21 13:03:00 Test Item Value Reference Range Interpretation Comments eGFR (test code = eGFR) 127 [facility]2016-01-21 13:03:00 Test Item Value Reference Range Interpretation Comments Creatinine Lvl (test code = Creatinine 0.60 0.50-1.40 Lvl) [facility]2016-01-21 13:03:00 Test Item Value Reference Range Interpretation Comments Glucose Lvl (test code = Glucose Lvl) 82 70-99 [facility]2016-01-21 13:03:00 Test Item Value Reference Range Interpretation Comments BUN (test code = BUN) 7 7-22 [facility]2016-01-21 13:03:00 Test Item Value Reference Range Interpretation Comments Potassium Lvl (test code = Potassium 4.1 3.5-5.1 Lvl) [facility]2016-01-21 13:03:00 Test Item Value Reference Range Interpretation Comments Sodium Lvl (test code = Sodium Lvl) 141 135-145 [facility]2016-01-21 13:03:00 Test Item Value Reference Range Interpretation Comments Chloride Lvl (test code = Chloride Lvl) 108 95-109 [facility]2016-01-21 13:03:00 Test Item Value Reference Range Interpretation Comments CO2 (test code = CO2) 20 24-32 [facility]2016-01-21 13:03:00 Test Item Value Reference Range Interpretation Comments Calcium Lvl (test code = Calcium Lvl) 8.9 8.5-10.5 [facility]2016-01-21 13:03:00 Test Item Value Reference Range Interpretation Comments AGAP (test code = AGAP) 17.1 10.0-20.0 [facility]aoQSWDFNICZE6877-61-44 13:03:00 Test Item Value Reference Range Interpretation Comments Lymphocytes # (test code = Lymphocytes 2.3 1.0-5.5 #) [facility]EzhnqsjHXGBJWBMYX2305-44-71 13:03:00 Test Item Value Reference Range Interpretation Comments Basophils (test code = 1.0 See_Comment [Aut omated message] The Basophils) system which ge nerated this result tra nsmitted reference range : <=1.0. The reference r kat was not used to int erpret this result as normal/abnormal . [facility] HospitalFpwjvhpQSEFKYYBHZ2474-35-15 13:03:00 Test Item Value Reference Range Interpretation Comments Segs-Bands # (test code = Segs-Bands #) 3.3 1.5-8.1 [facility] HospitalJepnqumHHZKUXXMCI6578-82-38 13:03:00 Test Item Value Reference Range Interpretation Comments Eosinophils (test code = 2.5 See_Comment [A utomated message] The Eosinophils) system which ge nerated this result tra nsmitted reference range : <=4.0. The reference r kat was not used to int erpret this result as normal/abnormal . [facility] HospitalJemxbgdJGIWYIBWJW6813-47-01 13:03:00 Test Item Value Reference Range Interpretation Comments Eosinophils # (test code 0.2 See_Comment [A utomated message] The = Eosinophils #) system whic h generated this result tra nsmitted reference range : <=0.5. The reference r kat was not used to int erpret this result as normal/abnormal . [facility] HospitalJwseqcdUPHGGYYMPW5253-00-21 13:03:00 Test Item Value Reference Range Interpretation Comments Monocytes # (test code 0.7 See_Comment [Aut omated message] The = Monocytes #) system which generated this result tra nsmitted reference range : <=0.8. The reference r kat was not used to int erpret this result as normal/abnormal . [facility] HospitalGnemiciSJWYPABZPV8467-64-87 13:03:00 Test Item Value Reference Range Interpretation Comments Microcyte (test code = 1+ *ABN*(09/19/15 Microcyte) 7:03 AM) [facility] HospitalSmixlyhVDFCAJTYEO4307-05-26 13:03:00 Test Item Value Reference Range Interpretation Comments Basophils # (test code 0.1 See_Comment [Aut omated message] The = Basophils #) system which generated this result tra nsmitted reference range : <=0.2. The reference r kat was not used to int erpret this result as normal/abnormal . [facility] HospitalWsibvsqSSLSUMAFSQ3490-55-70 13:03:00 Test Item Value Reference Range Interpretation Comments Monocytes (test code = Monocytes) 10.4 2.0-12.0 [facility] HospitalOmttmtnSGOZBDWRFP5852-67-36 13:03:00 Test Item Value Reference Range Interpretation Comments Lymphocytes (test code = Lymphocytes) 35.3 20.0-40.0 [facility] HospitalPoydmvcUYXSYQGSVA0520-50-45 13:03:00 Test Item Value Reference Range Interpretation Comments Segs (test code = Segs) 50.8 45.0-75.0 [facility] HospitalFzgmdokAXGXPMAXQT8652-48-67 13:03:00 Test Item Value Reference Range Interpretation Comments MCHC (test code = MCHC) 30.5 32.0-36.0 [facility] HospitalJweohulBRDHPLJLAM7492-21-09 13:03:00 Test Item Value Reference Range Interpretation Comments Platelet (test code = Platelet) 175 133-450 [facility] HospitalBjqvwujFWNEILYYNB5839-61-07 13:03:00 Test Item Value Reference Range Interpretation Comments RDW (test code = RDW) 17.1 11.5-14.5 [facility] HospitalVsgjndfUQPEECRCAM2420-87-45 13:03:00 Test Item Value Reference Range Interpretation Comments MCV (test code = MCV) 78.4 80.0-98.0 [facility] HospitalIxxssfkOIOEXTHHJY3767-49-51 13:03:00 Test Item Value Reference Range Interpretation Comments MCH (test code = MCH) 24.0 pg 27.0-31.0 [facility] [facility]00 Test Item Value Reference Range Interpretation Comments RBC (test code = RBC) 5.15 4.20-5.40 [facility]QrpwmndSDEFDVACOP8599-99-79 13:03:00 Test Item Value Reference Range Interpretation Comments Hct (test code = Hct) 40.4 36.0-48.0 [facility]YvikenrJQXDBCOIZD5318-49-13 13:03:00 Test Item Value Reference Range Interpretation Comments WBC (test code = WBC) 6.5 3.7-10.4 [facility]OkniprbBOBBOOADNU0191-36-40 13:03:00 Test Item Value Reference Range Interpretation Comments MPV (test code = MPV) 10.2 7.4-10.4 [facility]QatrhhnBGXGBDZOCQ3653-30-58 13:03:00 Test Item Value Reference Range Interpretation Comments Hgb (test code = Hgb) 12.3 12.0-16.0 [facility]2016-01-21 13:03:00 Test Item Value Reference Range Interpretation Comments Magnesium Lvl (test code = Magnesium 1.9 1.8-2.4 Lvl) [facility]2016-01-21 13:03:00 Test Item Value Reference Range Interpretation Comments eGFR (test code = eGFR) 127 [facility]2016-01-21 13:03:00 Test Item Value Reference Range Interpretation Comments Creatinine Lvl (test code = Creatinine 0.60 0.50-1.40 Lvl) [facility]2016-01-21 13:03:00 Test Item Value Reference Range Interpretation Comments Glucose Lvl (test code = Glucose Lvl) 82 70-99 [facility]2016-01-21 13:03:00 Test Item Value Reference Range Interpretation Comments BUN (test code = BUN) 7 7-22 [facility]2016-01-21 13:03:00 Test Item Value Reference Range Interpretation Comments Potassium Lvl (test code = Potassium 4.1 3.5-5.1 Lvl) [facility]2016-01-21 13:03:00 Test Item Value Reference Range Interpretation Comments Sodium Lvl (test code = Sodium Lvl) 141 135-145 [facility]2016-01-21 13:03:00 Test Item Value Reference Range Interpretation Comments Chloride Lvl (test code = Chloride Lvl) 108 95-109 [facility]2016-01-21 13:03:00 Test Item Value Reference Range Interpretation Comments CO2 (test code = CO2) 20 24-32 [facility]2016-01-21 13:03:00 Test Item Value Reference Range Interpretation Comments Calcium Lvl (test code = Calcium Lvl) 8.9 8.5-10.5 [facility]2016-01-21 13:03:00 Test Item Value Reference Range Interpretation Comments AGAP (test code = AGAP) 17.1 10.0-20.0 [facility]SqatobrUZAJIESVRS4618-90-18 13:03:00 Test Item Value Reference Range Interpretation Comments Lymphocytes # (test code = Lymphocytes 2.3 1.0-5.5 #) [facility] HospitalNpbuclkQFAOYJFVRA6626-29-64 13:03:00 Test Item Value Reference Range Interpretation Comments Basophils (test code = 1.0 See_Comment [Aut omated message] The Basophils) system which ge nerated this result tra nsmitted reference range : <=1.0. The reference r kat was not used to int erpret this result as normal/abnormal . [facility] HospitalLiuciqpBGNEIAWSNX6021-52-28 13:03:00 Test Item Value Reference Range Interpretation Comments Segs-Bands # (test code = Segs-Bands #) 3.3 1.5-8.1 [facility] HospitalWgiqxwaOLMZMSKWKS0982-39-49 13:03:00 Test Item Value Reference Range Interpretation Comments Eosinophils (test code = 2.5 See_Comment [A utomated message] The Eosinophils) system which ge nerated this result tra nsmitted reference range : <=4.0. The reference r kat was not used to int erpret this result as normal/abnormal . [facility] HospitalZwainhaQNZZVWGDQI3490-65-38 13:03:00 Test Item Value Reference Range Interpretation Comments Eosinophils # (test code 0.2 See_Comment [A utomated message] The = Eosinophils #) system whic h generated this result tra nsmitted reference range : <=0.5. The reference r kat was not used to int erpret this result as normal/abnormal . [facility] HospitalFfuwgvlFRXZLMJZSN1331-20-83 13:03:00 Test Item Value Reference Range Interpretation Comments Monocytes # (test code 0.7 See_Comment [Aut omated message] The = Monocytes #) system which generated this result tra nsmitted reference range : <=0.8. The reference r kat was not used to int erpret this result as normal/abnormal . [facility] HospitalFgrygywOBKUWHAOBA8943-52-52 13:03:00 Test Item Value Reference Range Interpretation Comments Microcyte (test code = 1+ *ABN*(09/19/15 Microcyte) 7:03 AM) [facility] HospitalOscociaTCYCVTYTQK0353-59-08 13:03:00 Test Item Value Reference Range Interpretation Comments Basophils # (test code 0.1 See_Comment [Aut omated message] The = Basophils #) system which generated this result tra nsmitted reference range : <=0.2. The reference r kat was not used to int erpret this result as normal/abnormal . [facility] HospitalZogqtwsYWHGVHGIJV6340-78-49 13:03:00 Test Item Value Reference Range Interpretation Comments Monocytes (test code = Monocytes) 10.4 2.0-12.0 [facility] HospitalNoaccxsDBNUTUQJRW5208-83-98 13:03:00 Test Item Value Reference Range Interpretation Comments Lymphocytes (test code = Lymphocytes) 35.3 20.0-40.0 [facility] HospitalHqrnlwfKJXCOGNOGV4014-13-87 13:03:00 Test Item Value Reference Range Interpretation Comments Segs (test code = Segs) 50.8 45.0-75.0 [facility] HospitalLfssowhAMMPLNZAWC9607-54-55 13:03:00 Test Item Value Reference Range Interpretation Comments MCHC (test code = MCHC) 30.5 32.0-36.0 [facility] HospitalZocsfyrMOSBZRUVTF6075-80-41 13:03:00 Test Item Value Reference Range Interpretation Comments Platelet (test code = Platelet) 175 133-450 [facility] HospitalDcmkstdYUJQZEKRDG3862-29-59 13:03:00 Test Item Value Reference Range Interpretation Comments RDW (test code = RDW) 17.1 11.5-14.5 [facility] HospitalGbzxnujLQZPPHLLOV5424-77-00 13:03:00 Test Item Value Reference Range Interpretation Comments MCV (test code = MCV) 78.4 80.0-98.0 [facility]YmslypiLNPCXHJGMK5602-19-32 13:03:00 Test Item Value Reference Range Interpretation Comments MCH (test code = MCH) 24.0 pg 27.0-31.0 [facility] HospitalTigntssZNYGYUFDBH8185-99-47 13:03:00 Test Item Value Reference Range Interpretation Comments RBC (test code = RBC) 5.15 4.20-5.40 [facility] HospitalUzblzfrWTMPNLHIRL5241-15-20 13:03:00 Test Item Value Reference Range Interpretation Comments Hct (test code = Hct) 40.4 36.0-48.0 [facility] HospitalLkalmovWRILMWEOGC9067-68-41 13:03:00 Test Item Value Reference Range Interpretation Comments WBC (test code = WBC) 6.5 3.7-10.4 [facility] HospitalQkdrkcrSOIUGVQJYS2230-65-96 13:03:00 Test Item Value Reference Range Interpretation Comments MPV (test code = MPV) 10.2 7.4-10.4 [facility] HospitalDhjfinbYHPCSYNHCK0184-01-94 13:03:00 Test Item Value Reference Range Interpretation Comments Hgb (test code = Hgb) 12.3 12.0-16.0 [facility]2016-01-21 13:03:00 Test Item Value Reference Range Interpretation Comments Magnesium Lvl (test code = Magnesium 1.9 1.8-2.4 Lvl) [facility]2016-01-21 13:03:00 Test Item Value Reference Range Interpretation Comments eGFR (test code = eGFR) 127 [facility]2016-01-21 13:03:00 Test Item Value Reference Range Interpretation Comments Creatinine Lvl (test code = Creatinine 0.60 0.50-1.40 Lvl) [facility]2016-01-21 13:03:00 Test Item Value Reference Range Interpretation Comments Glucose Lvl (test code = Glucose Lvl) 82 70-99 [facility]2016-01-21 13:03:00 Test Item Value Reference Range Interpretation Comments BUN (test code = BUN) 7 7-22 [facility]2016-01-21 13:03:00 Test Item Value Reference Range Interpretation Comments Potassium Lvl (test code = Potassium 4.1 3.5-5.1 Lvl) [facility]2016-01-21 13:03:00 Test Item Value Reference Range Interpretation Comments Sodium Lvl (test code = Sodium Lvl) 141 135-145 [facility]2016-01-21 13:03:00 Test Item Value Reference Range Interpretation Comments Chloride Lvl (test code = Chloride Lvl) 108 95-109 [facility]2016-01-21 13:03:00 Test Item Value Reference Range Interpretation Comments CO2 (test code = CO2) 20 24-32 [facility]2016-01-21 13:03:00 Test Item Value Reference Range Interpretation Comments Calcium Lvl (test code = Calcium Lvl) 8.9 8.5-10.5 [facility]2016-01-21 13:03:00 Test Item Value Reference Range Interpretation Comments AGAP (test code = AGAP) 17.1 10.0-20.0 [facility]OzfmkfqPMFCRIBCZX9574-19-43 13:03:00 Test Item Value Reference Range Interpretation Comments Lymphocytes # (test code = Lymphocytes 2.3 1.0-5.5 #) [facility] HospitalDcfltfrAIADYLXFWT5154-18-58 13:03:00 Test Item Value Reference Range Interpretation Comments Basophils (test code = 1.0 See_Comment [Aut omated message] The Basophils) system which ge nerated this result tra nsmitted reference range : <=1.0. The reference r kat was not used to int erpret this result as normal/abnormal . [facility] HospitalBzrqwqxRRCWNQQPGO0928-01-10 13:03:00 Test Item Value Reference Range Interpretation Comments Segs-Bands # (test code = Segs-Bands #) 3.3 1.5-8.1 [facility] HospitalAvycwwyQGJCJSOHPR9762-58-34 13:03:00 Test Item Value Reference Range Interpretation Comments Eosinophils (test code = 2.5 See_Comment [A utomated message] The Eosinophils) system which ge nerated this result tra nsmitted reference range : <=4.0. The reference r kat was not used to int erpret this result as normal/abnormal . [facility] HospitalFjbzjxeBSJGVZTDJQ3046-67-27 13:03:00 Test Item Value Reference Range Interpretation Comments Eosinophils # (test code 0.2 See_Comment [A utomated message] The = Eosinophils #) system wh h generated this result tra nsmitted reference range : <=0.5. The reference r kat was not used to int erpret this result as normal/abnormal . [facility] HospitalTmqevqrEWXNLYTARB9621-99-55 13:03:00 Test Item Value Reference Range Interpretation Comments Monocytes # (test code 0.7 See_Comment [Aut omated message] The = Monocytes #) system which generated this result tra nsmitted reference range : <=0.8. The reference r kat was not used to int erpret this result as normal/abnormal . [facility] HospitalKzobtikRTNDNBVKOF6336-48-31 13:03:00 Test Item Value Reference Range Interpretation Comments Microcyte (test code = 1+ *ABN*(09/19/15 Microcyte) 7:03 AM) [facility] HospitalBntqeekRJJOHURZDE8133-92-93 13:03:00 Test Item Value Reference Range Interpretation Comments Basophils # (test code 0.1 See_Comment [Aut omated message] The = Basophils #) system which generated this result tra nsmitted reference range : <=0.2. The reference r kat was not used to int erpret this result as normal/abnormal . [facility] HospitalMgtkpfhKQXSXJHHVC3840-22-04 13:03:00 Test Item Value Reference Range Interpretation Comments Monocytes (test code = Monocytes) 10.4 2.0-12.0 [facility] HospitalBjaafegYNYKTVTPBW5042-96-00 13:03:00 Test Item Value Reference Range Interpretation Comments Lymphocytes (test code = Lymphocytes) 35.3 20.0-40.0 [facility] HospitalOlcbxiaKDHKLEZYAP3860-40-87 13:03:00 Test Item Value Reference Range Interpretation Comments Segs (test code = Segs) 50.8 45.0-75.0 [facility] HospitalYqiejbuAFAVDEZVTU6473-46-85 13:03:00 Test Item Value Reference Range Interpretation Comments MCHC (test code = MCHC) 30.5 32.0-36.0 [facility] HospitalDpobjtvZQISEPKJLY4426-11-98 13:03:00 Test Item Value Reference Range Interpretation Comments Platelet (test code = Platelet) 175 133-450 [facility] HospitalDtxpdpwZUKUDNZZQB7249-29-09 13:03:00 Test Item Value Reference Range Interpretation Comments RDW (test code = RDW) 17.1 11.5-14.5 [facility] HospitalFefkvyjHPKVSGJEOE2757-33-44 13:03:00 Test Item Value Reference Range Interpretation Comments MCV (test code = MCV) 78.4 80.0-98.0 [facility] HospitalNufsgvhJJFKJDDKNQ9735-17-49 13:03:00 Test Item Value Reference Range Interpretation Comments MCH (test code = MCH) 24.0 pg 27.0-31.0 [facility] HospitalVxoquwySVKHHZXQKX9688-43-60 13:03:00 Test Item Value Reference Range Interpretation Comments RBC (test code = RBC) 5.15 4.20-5.40 [facility] HospitalLjsgwdtUTAHNOFTWT7559-65-10 13:03:00 Test Item Value Reference Range Interpretation Comments Hct (test code = Hct) 40.4 36.0-48.0 [facility] HospitalHzzkzaiYNVTEUHMOL8553-71-07 13:03:00 Test Item Value Reference Range Interpretation Comments WBC (test code = WBC) 6.5 3.7-10.4 [facility] HospitalYazbovfCJHVPGAGOT0900-83-01 13:03:00 Test Item Value Reference Range Interpretation Comments MPV (test code = MPV) 10.2 7.4-10.4 [facility] HospitalUzwfsapMVJXRCDBFC1828-42-05 13:03:00 Test Item Value Reference Range Interpretation Comments Hgb (test code = Hgb) 12.3 12.0-16.0 [facility]2016-01-21 13:03:00 Test Item Value Reference Range Interpretation Comments Magnesium Lvl (test code = Magnesium 1.9 1.8-2.4 Lvl) [facility]2016-01-21 13:03:00 Test Item Value Reference Range Interpretation Comments eGFR (test code = eGFR) 127 [facility]2016-01-21 13:03:00 Test Item Value Reference Range Interpretation Comments Creatinine Lvl (test code = Creatinine 0.60 0.50-1.40 Lvl) [facility]2016-01-21 13:03:00 Test Item Value Reference Range Interpretation Comments Glucose Lvl (test code = Glucose Lvl) 82 70-99 [facility]2016-01-21 13:03:00 Test Item Value Reference Range Interpretation Comments BUN (test code = BUN) 7 7-22 [facility]2016-01-21 13:03:00 Test Item Value Reference Range Interpretation Comments Potassium Lvl (test code = Potassium 4.1 3.5-5.1 Lvl) [facility]2016-01-21 13:03:00 Test Item Value Reference Range Interpretation Comments Sodium Lvl (test code = Sodium Lvl) 141 135-145 [facility]2016-01-21 13:03:00 Test Item Value Reference Range Interpretation Comments Chloride Lvl (test code = Chloride Lvl) 108 95-109 [facility]2016-01-21 13:03:00 Test Item Value Reference Range Interpretation Comments CO2 (test code = CO2) 20 24-32 [facility]2016-01-21 13:03:00 Test Item Value Reference Range Interpretation Comments Calcium Lvl (test code = Calcium Lvl) 8.9 8.5-10.5 [facility]2016-01-21 13:03:00 Test Item Value Reference Range Interpretation Comments AGAP (test code = AGAP) 17.1 10.0-20.0 [facility] HospitalRdztgaeMQFNALIRNQ8977-79-30 13:03:00 Test Item Value Reference Range Interpretation Comments Lymphocytes # (test code = Lymphocytes 2.3 1.0-5.5 #) [facility] HospitalYcsduyjVODHLTZJYL3450-31-61 13:03:00 Test Item Value Reference Range Interpretation Comments Basophils (test code = 1.0 See_Comment [Aut omated message] The Basophils) system which ge nerated this result tra nsmitted reference range : <=1.0. The reference r kat was not used to int erpret this result as normal/abnormal . [facility] HospitalUigtyekRGSDXVOZCE7697-64-70 13:03:00 Test Item Value Reference Range Interpretation Comments Segs-Bands # (test code = Segs-Bands #) 3.3 1.5-8.1 [facility] HospitalZbakdqoFOOMBGEWCX8724-48-73 13:03:00 Test Item Value Reference Range Interpretation Comments Eosinophils (test code = 2.5 See_Comment [A utomated message] The Eosinophils) system which ge nerated this result tra nsmitted reference range : <=4.0. The reference r kat was not used to int erpret this result as normal/abnormal . [facility] HospitalHkkqxsuDDNMDRHYAZ0687-63-45 13:03:00 Test Item Value Reference Range Interpretation Comments Eosinophils # (test code 0.2 See_Comment [A utomated message] The = Eosinophils #) system whic h generated this result tra nsmitted reference range : <=0.5. The reference r kat was not used to int erpret this result as normal/abnormal . [facility] HospitalUimkqkvVKWFUMZIAK2160-71-69 13:03:00 Test Item Value Reference Range Interpretation Comments Monocytes # (test code 0.7 See_Comment [Aut omated message] The = Monocytes #) system which generated this result tra nsmitted reference range : <=0.8. The reference r kat was not used to int erpret this result as normal/abnormal . [facility] HospitalVfajdnaRHQVMFJRJM8598-65-91 13:03:00 Test Item Value Reference Range Interpretation Comments Microcyte (test code = 1+ *ABN*(09/19/15 Microcyte) 7:03 AM) [facility] HospitalRhvommrPZJBMJSLNJ2230-55-51 13:03:00 Test Item Value Reference Range Interpretation Comments Basophils # (test code 0.1 See_Comment [Aut omated message] The = Basophils #) system which generated this result tra nsmitted reference range : <=0.2. The reference r kat was not used to int erpret this result as normal/abnormal . [facility] HospitalVurfuftDPOUESDBLE4102-56-76 13:03:00 Test Item Value Reference Range Interpretation Comments Monocytes (test code = Monocytes) 10.4 2.0-12.0 [facility] HospitalZfifoufOXZLIANLZR5455-21-73 13:03:00 Test Item Value Reference Range Interpretation Comments Lymphocytes (test code = Lymphocytes) 35.3 20.0-40.0 [facility] HospitalGhwepdrWSUOQFBHWG5746-88-73 13:03:00 Test Item Value Reference Range Interpretation Comments Segs (test code = Segs) 50.8 45.0-75.0 [facility] HospitalIbnhifzDQXUNAZOKK5988-64-07 13:03:00 Test Item Value Reference Range Interpretation Comments MCHC (test code = MCHC) 30.5 32.0-36.0 [facility] HospitalWcnxnjbSJINRFATMT7108-82-21 13:03:00 Test Item Value Reference Range Interpretation Comments Platelet (test code = Platelet) 175 133-450 [facility] HospitalRecgxofRSDEONPNJE9702-22-43 13:03:00 Test Item Value Reference Range Interpretation Comments RDW (test code = RDW) 17.1 11.5-14.5 [facility] HospitalTimpizvKOLEOMMFIE7674-53-03 13:03:00 Test Item Value Reference Range Interpretation Comments MCV (test code = MCV) 78.4 80.0-98.0 [facility] HospitalJncktmeITKFIWYJFC7067-69-63 13:03:00 Test Item Value Reference Range Interpretation Comments MCH (test code = MCH) 24.0 pg 27.0-31.0 [facility] HospitalTawikunQDKALKJJKV2038-97-24 13:03:00 Test Item Value Reference Range Interpretation Comments RBC (test code = RBC) 5.15 4.20-5.40 [facility] HospitalEzfmoliOYHDCVQJCB2858-84-72 13:03:00 Test Item Value Reference Range Interpretation Comments Hct (test code = Hct) 40.4 36.0-48.0 [facility] HospitalQelkecpRNOODIYLLP5856-48-19 13:03:00 Test Item Value Reference Range Interpretation Comments WBC (test code = WBC) 6.5 3.7-10.4 [facility] HospitalJxminlwZQWRPYCYXV8185-52-86 13:03:00 Test Item Value Reference Range Interpretation Comments MPV (test code = MPV) 10.2 7.4-10.4 [facility] HospitalXhvczizZZLTOLGMWC0746-53-71 13:03:00 Test Item Value Reference Range Interpretation Comments Hgb (test code = Hgb) 12.3 12.0-16.0 [facility]2016-01-20 12:40:00 Test Item Value Reference Range Interpretation Comments eGFR (test code = eGFR) 129 [facility]2016-01-20 12:40:00 Test Item Value Reference Range Interpretation Comments Creatinine Lvl (test code = Creatinine 0.58 0.50-1.40 Lvl) [facility]2016-01-20 12:40:00 Test Item Value Reference Range Interpretation Comments CO2 (test code = CO2) 23 24-32 [facility]2016-01-20 12:40:00 Test Item Value Reference Range Interpretation Comments Chloride Lvl (test code = Chloride Lvl) 109 95-109 [facility]2016-01-20 12:40:00 Test Item Value Reference Range Interpretation Comments Calcium Lvl (test code = Calcium Lvl) 9.0 8.5-10.5 [facility]2016-01-20 12:40:00 Test Item Value Reference Range Interpretation Comments Potassium Lvl (test code = Potassium 3.7 3.5-5.1 Lvl) [facility]2016-01-20 12:40:00 Test Item Value Reference Range Interpretation Comments AGAP (test code = AGAP) 12.7 10.0-20.0 [facility]2016-01-20 12:40:00 Test Item Value Reference Range Interpretation Comments BUN (test code = BUN) 9 7-22 [facility]2016-01-20 12:40:00 Test Item Value Reference Range Interpretation Comments Sodium Lvl (test code = Sodium Lvl) 141 135-145 [facility]2016-01-20 12:40:00 Test Item Value Reference Range Interpretation Comments Glucose Lvl (test code = Glucose Lvl) 87 70-99 [facility]2016-01-20 12:40:00 Test Item Value Reference Range Interpretation Comments eGFR (test code = eGFR) 129 [facility]2016-01-20 12:40:00 Test Item Value Reference Range Interpretation Comments Creatinine Lvl (test code = Creatinine 0.58 0.50-1.40 Lvl) [facility]2016-01-20 12:40:00 Test Item Value Reference Range Interpretation Comments CO2 (test code = CO2) 23 24- [facility]2016-01-20 12:40:00 Test Item Value Reference Range Interpretation Comments Chloride Lvl (test code = Chloride Lvl) 109 95-109 [facility]2016-01-20 12:40:00 Test Item Value Reference Range Interpretation Comments Calcium Lvl (test code = Calcium Lvl) 9.0 8.5-10.5 [facility]2016-01-20 12:40:00 Test Item Value Reference Range Interpretation Comments Potassium Lvl (test code = Potassium 3.7 3.5-5.1 Lvl) [facility]2016-01-20 12:40:00 Test Item Value Reference Range Interpretation Comments AGAP (test code = AGAP) 12.7 10.0-20.0 [facility]2016-01-20 12:40:00 Test Item Value Reference Range Interpretation Comments BUN (test code = BUN) 9 7- [facility]2016-01-20 12:40:00 Test Item Value Reference Range Interpretation Comments Sodium Lvl (test code = Sodium Lvl) 141 135-145 [facility]2016-01-20 12:40:00 Test Item Value Reference Range Interpretation Comments Glucose Lvl (test code = Glucose Lvl) 87 70-99 [facility]2016-01-20 12:40:00 Test Item Value Reference Range Interpretation Comments eGFR (test code = eGFR) 129 [facility]2016-01-20 12:40:00 Test Item Value Reference Range Interpretation Comments Creatinine Lvl (test code = Creatinine 0.58 0.50-1.40 Lvl) [facility]2016-01-20 12:40:00 Test Item Value Reference Range Interpretation Comments CO2 (test code = CO2) 23 24- [facility]2016-01-20 12:40:00 Test Item Value Reference Range Interpretation Comments Chloride Lvl (test code = Chloride Lvl) 109 95-109 [facility]2016-01-20 12:40:00 Test Item Value Reference Range Interpretation Comments Calcium Lvl (test code = Calcium Lvl) 9.0 8.5-10.5 [facility]2016-01-20 12:40:00 Test Item Value Reference Range Interpretation Comments Potassium Lvl (test code = Potassium 3.7 3.5-5.1 Lvl) [facility]2016-01-20 12:40:00 Test Item Value Reference Range Interpretation Comments AGAP (test code = AGAP) 12.7 10.0-20.0 [facility]2016-01-20 12:40:00 Test Item Value Reference Range Interpretation Comments BUN (test code = BUN) 9 7-22 [facility]2016-01-20 12:40:00 Test Item Value Reference Range Interpretation Comments Sodium Lvl (test code = Sodium Lvl) 141 135-145 [facility]2016-01-20 12:40:00 Test Item Value Reference Range Interpretation Comments Glucose Lvl (test code = Glucose Lvl) 87 70-99 [facility]2016-01-20 12:40:00 Test Item Value Reference Range Interpretation Comments eGFR (test code = eGFR) 129 [facility]2016-01-20 12:40:00 Test Item Value Reference Range Interpretation Comments Creatinine Lvl (test code = Creatinine 0.58 0.50-1.40 Lvl) [facility]2016-01-20 12:40:00 Test Item Value Reference Range Interpretation Comments CO2 (test code = CO2) 23 24-32 [facility]2016-01-20 12:40:00 Test Item Value Reference Range Interpretation Comments Chloride Lvl (test code = Chloride Lvl) 109 95-109 [facility]2016-01-20 12:40:00 Test Item Value Reference Range Interpretation Comments Calcium Lvl (test code = Calcium Lvl) 9.0 8.5-10.5 [facility]2016-01-20 12:40:00 Test Item Value Reference Range Interpretation Comments Potassium Lvl (test code = Potassium 3.7 3.5-5.1 Lvl) [facility]2016-01-20 12:40:00 Test Item Value Reference Range Interpretation Comments AGAP (test code = AGAP) 12.7 10.0-20.0 [facility]2016-01-20 12:40:00 Test Item Value Reference Range Interpretation Comments BUN (test code = BUN) 9 7-22 [facility]2016-01-20 12:40:00 Test Item Value Reference Range Interpretation Comments Sodium Lvl (test code = Sodium Lvl) 141 135-145 [facility]2016-01-20 12:40:00 Test Item Value Reference Range Interpretation Comments Glucose Lvl (test code = Glucose Lvl) 87 70-99 [facility]2016-01-20 12:40:00 Test Item Value Reference Range Interpretation Comments eGFR (test code = eGFR) 129 [facility]2016-01-20 12:40:00 Test Item Value Reference Range Interpretation Comments Creatinine Lvl (test code = Creatinine 0.58 0.50-1.40 Lvl) [facility]2016-01-20 12:40:00 Test Item Value Reference Range Interpretation Comments CO2 (test code = CO2) 23 24-32 [facility]2016-01-20 12:40:00 Test Item Value Reference Range Interpretation Comments Chloride Lvl (test code = Chloride Lvl) 109 95-109 [facility]2016-01-20 12:40:00 Test Item Value Reference Range Interpretation Comments Calcium Lvl (test code = Calcium Lvl) 9.0 8.5-10.5 [facility]2016-01-20 12:40:00 Test Item Value Reference Range Interpretation Comments Potassium Lvl (test code = Potassium 3.7 3.5-5.1 Lvl) [facility]2016-01-20 12:40:00 Test Item Value Reference Range Interpretation Comments AGAP (test code = AGAP) 12.7 10.0-20.0 [facility]2016-01-20 12:40:00 Test Item Value Reference Range Interpretation Comments BUN (test code = BUN) 9 7-22 [facility]2016-01-20 12:40:00 Test Item Value Reference Range Interpretation Comments Sodium Lvl (test code = Sodium Lvl) 141 135-145 [facility]2016-01-20 12:40:00 Test Item Value Reference Range Interpretation Comments Glucose Lvl (test code = Glucose Lvl) 87 70-99 [facility]2016-01-20 12:40:00 Test Item Value Reference Range Interpretation Comments eGFR (test code = eGFR) 129 [facility]2016-01-20 12:40:00 Test Item Value Reference Range Interpretation Comments Creatinine Lvl (test code = Creatinine 0.58 0.50-1.40 Lvl) [facility]2016-01-20 12:40:00 Test Item Value Reference Range Interpretation Comments CO2 (test code = CO2) 23 -32 [facility]2016-01-20 12:40:00 Test Item Value Reference Range Interpretation Comments Chloride Lvl (test code = Chloride Lvl) 109 95-109 [facility]2016-01-20 12:40:00 Test Item Value Reference Range Interpretation Comments Calcium Lvl (test code = Calcium Lvl) 9.0 8.5-10.5 [facility]2016-01-20 12:40:00 Test Item Value Reference Range Interpretation Comments Potassium Lvl (test code = Potassium 3.7 3.5-5.1 Lvl) [facility]2016-01-20 12:40:00 Test Item Value Reference Range Interpretation Comments AGAP (test code = AGAP) 12.7 10.0-20.0 [facility]2016-01-20 12:40:00 Test Item Value Reference Range Interpretation Comments BUN (test code = BUN) 9 7-22 [facility]2016-01-20 12:40:00 Test Item Value Reference Range Interpretation Comments Sodium Lvl (test code = Sodium Lvl) 141 135-145 [facility]2016-01-20 12:40:00 Test Item Value Reference Range Interpretation Comments Glucose Lvl (test code = Glucose Lvl) 87 70-99 [facility]2016-01-20 12:40:00 Test Item Value Reference Range Interpretation Comments eGFR (test code = eGFR) 129 [facility]2016-01-20 12:40:00 Test Item Value Reference Range Interpretation Comments Creatinine Lvl (test code = Creatinine 0.58 0.50-1.40 Lvl) [facility]2016-01-20 12:40:00 Test Item Value Reference Range Interpretation Comments CO2 (test code = CO2) 23 24-32 [facility]2016-01-20 12:40:00 Test Item Value Reference Range Interpretation Comments Chloride Lvl (test code = Chloride Lvl) 109 95-109 [facility]2016-01-20 12:40:00 Test Item Value Reference Range Interpretation Comments Calcium Lvl (test code = Calcium Lvl) 9.0 8.5-10.5 [facility]2016-01-20 12:40:00 Test Item Value Reference Range Interpretation Comments Potassium Lvl (test code = Potassium 3.7 3.5-5.1 Lvl) [facility]2016-01-20 12:40:00 Test Item Value Reference Range Interpretation Comments AGAP (test code = AGAP) 12.7 10.0-20.0 [facility]2016-01-20 12:40:00 Test Item Value Reference Range Interpretation Comments BUN (test code = BUN) 9 7-22 [facility]2016-01-20 12:40:00 Test Item Value Reference Range Interpretation Comments Sodium Lvl (test code = Sodium Lvl) 141 135-145 [facility]2016-01-20 12:40:00 Test Item Value Reference Range Interpretation Comments Glucose Lvl (test code = Glucose Lvl) 87 70-99 [facility]2016-01-20 12:40:00 Test Item Value Reference Range Interpretation Comments eGFR (test code = eGFR) 129 [facility]2016-01-20 12:40:00 Test Item Value Reference Range Interpretation Comments Creatinine Lvl (test code = Creatinine 0.58 0.50-1.40 Lvl) [facility]2016-01-20 12:40:00 Test Item Value Reference Range Interpretation Comments CO2 (test code = CO2) 23 24-32 [facility]2016-01-20 12:40:00 Test Item Value Reference Range Interpretation Comments Chloride Lvl (test code = Chloride Lvl) 109 95-109 [facility]2016-01-20 12:40:00 Test Item Value Reference Range Interpretation Comments Calcium Lvl (test code = Calcium Lvl) 9.0 8.5-10.5 [facility]2016-01-20 12:40:00 Test Item Value Reference Range Interpretation Comments Potassium Lvl (test code = Potassium 3.7 3.5-5.1 Lvl) [facility]2016-01-20 12:40:00 Test Item Value Reference Range Interpretation Comments AGAP (test code = AGAP) 12.7 10.0-20.0 [facility]2016-01-20 12:40:00 Test Item Value Reference Range Interpretation Comments BUN (test code = BUN) 9 - [facility]2016-01-20 12:40:00 Test Item Value Reference Range Interpretation Comments Sodium Lvl (test code = Sodium Lvl) 141 135-145 [facility]2016-01-20 12:40:00 Test Item Value Reference Range Interpretation Comments Glucose Lvl (test code = Glucose Lvl) 87 70-99 [facility]2016-01-20 12:40:00 Test Item Value Reference Range Interpretation Comments eGFR (test code = eGFR) 129 [facility]2016-01-20 12:40:00 Test Item Value Reference Range Interpretation Comments Creatinine Lvl (test code = Creatinine 0.58 0.50-1.40 Lvl) [facility]2016-01-20 12:40:00 Test Item Value Reference Range Interpretation Comments CO2 (test code = CO2) 23 24-32 [facility]2016-01-20 12:40:00 Test Item Value Reference Range Interpretation Comments Chloride Lvl (test code = Chloride Lvl) 109 95-109 [facility]2016-01-20 12:40:00 Test Item Value Reference Range Interpretation Comments Calcium Lvl (test code = Calcium Lvl) 9.0 8.5-10.5 [facility]2016-01-20 12:40:00 Test Item Value Reference Range Interpretation Comments Potassium Lvl (test code = Potassium 3.7 3.5-5.1 Lvl) [facility]2016-01-20 12:40:00 Test Item Value Reference Range Interpretation Comments AGAP (test code = AGAP) 12.7 10.0-20.0 [facility]2016-01-20 12:40:00 Test Item Value Reference Range Interpretation Comments BUN (test code = BUN) 9 - [facility]2016-01-20 12:40:00 Test Item Value Reference Range Interpretation Comments Sodium Lvl (test code = Sodium Lvl) 141 135-145 [facility]2016-01-20 12:40:00 Test Item Value Reference Range Interpretation Comments Glucose Lvl (test code = Glucose Lvl) 87 70-99 [facility] AND [id number] 05:30:00 Test Item Value Reference Range Interpretation Comments UA Urobilinogen (test code = UA <=1.0 mg/dL 0.1-1.0 Urobilinogen) [facility] AND [id number] 05:30:00 Test Item Value Reference Range Interpretation Comments UA Color (test code = UA Color) Marry [facility] AND [id number] 05:30:00 Test Item Value Reference Range Interpretation Comments UA Bacteria (test code = UA Many /HPF Bacteria) [facility] AND [id number] 05:30:00 Test Item Value Reference Range Interpretation Comments UA Mucus (test code = UA Mucus) Many /LPF [facility] AND [id number] 05:30:00 Test Item Value Reference Range Interpretation Comments UA Leuk Est (test code Large *ABN*(09/17/15 = UA Leuk Est) 11:30 PM) [facility] AND [id number] 05:30:00 Test Item Value Reference Range Interpretation Comments UA Sq Epi (test code = UA Sq Epi) Many /LPF [facility] AND [id number] 05:30:00 Test Item Value Reference Range Interpretation Comments UA Nitrite (test code Negative (09/17/15 11:30 = UA Nitrite) PM) [facility] AND [id number] 05:30:00 Test Item Value Reference Range Interpretation Comments UA WBC (test code = 16 See_Comment [Automa arvind message] The UA WBC) system which ge nerated this result transmit arvind reference range : <=5. The reference range was not used to interpr et this result as mario l/abnormal. [facility] AND [id number] 05:30:00 Test Item Value Reference Range Interpretation Comments UA RBC (test code = 5 See_Comment [Automa arvind message] The UA RBC) system which ge nerated this result transmit arvnid reference range : <=2. The reference range was not used to interpr et this result as mario l/abnormal. [facility] AND [id number] 05:30:00 Test Item Value Reference Range Interpretation Comments UA Bili (test code = Negative *NA*(09/17/15 UA Bili) 11:30 PM) [facility] [id number] 05:30:00 Test Item Value Reference Range Interpretation Comments UA Blood (test code = Negative (09/17/15 11:30 UA Blood) PM) [facility] [id number] 05:30:00 Test Item Value Reference Range Interpretation Comments UA Glucose (test code = UA Negative mg/dL Glucose) [facility] [id number] 05:30:00 Test Item Value Reference Range Interpretation Comments UA Ketones (test code = UA Trace mg/dL Ketones) [facility] [id number] 05:30:00 Test Item Value Reference Range Interpretation Comments UA Protein (test code = UA Protein) 30 mg/dL [facility] AND [id number] 05:30:00 Test Item Value Reference Range Interpretation Comments UA pH (test code = UA pH) 5.0 5.0-8.0 [facility] [id number] 05:30:00 Test Item Value Reference Range Interpretation Comments UA Spec Grav (test code = UA Spec Grav) 1.030 [facility] AND [id number] 05:30:00 Test Item Value Reference Range Interpretation Comments UA Turbidity (test code Marked *ABN*(09/17/15 = UA Turbidity) 11:30 PM) [facility] [id number] 05:30:00 Test Item Value Reference Range Interpretation Comments U Preg (test code = U Negative (09/17/15 11:30 Preg) PM) [facility] [id number] 05:30:00 Test Item Value Reference Range Interpretation Comments UA Urobilinogen (test code = UA <=1.0 mg/dL 0.1-1.0 Urobilinogen) [facility] [id number] 05:30:00 Test Item Value Reference Range Interpretation Comments UA Color (test code = UA Color) Marry [facility] AND [id number] 05:30:00 Test Item Value Reference Range Interpretation Comments UA Bacteria (test code = UA Many /HPF Bacteria) [facility] [id number] 05:30:00 Test Item Value Reference Range Interpretation Comments UA Mucus (test code = UA Mucus) Many /LPF [facility] AND [id number] 05:30:00 Test Item Value Reference Range Interpretation Comments UA Leuk Est (test code Large *ABN*(09/17/15 = UA Leuk Est) 11:30 PM) [facility] AND [id number] 05:30:00 Test Item Value Reference Range Interpretation Comments UA Sq Epi (test code = UA Sq Epi) Many /LPF [facility] AND [id number] 05:30:00 Test Item Value Reference Range Interpretation Comments UA Nitrite (test code Negative (09/17/15 11:30 = UA Nitrite) PM) [facility] AND [id number] 05:30:00 Test Item Value Reference Range Interpretation Comments UA WBC (test code = 16 See_Comment [Automa arvind message] The UA WBC) system which ge nerated this result transmit arvind reference range : <=5. The reference range was not used to interpr et this result as mario l/abnormal. [facility] AND [id number] 05:30:00 Test Item Value Reference Range Interpretation Comments UA RBC (test code = 5 See_Comment [Automa arvind message] The UA RBC) system which ge nerated this result transmit arvind reference range : <=2. The reference range was not used to interpr et this result as mario l/abnormal. [facility] AND [id number] 05:30:00 Test Item Value Reference Range Interpretation Comments UA Bili (test code = Negative *NA*(09/17/15 UA Bili) 11:30 PM) [facility] AND [id number] 05:30:00 Test Item Value Reference Range Interpretation Comments UA Blood (test code = Negative (09/17/15 11:30 UA Blood) PM) [facility] AND [id number] 05:30:00 Test Item Value Reference Range Interpretation Comments UA Glucose (test code = UA Negative mg/dL Glucose) [facility] AND [id number] 05:30:00 Test Item Value Reference Range Interpretation Comments UA Ketones (test code = UA Trace mg/dL Ketones) [facility] AND [id number] 05:30:00 Test Item Value Reference Range Interpretation Comments UA Protein (test code = UA Protein) 30 mg/dL [facility] [id number] 05:30:00 Test Item Value Reference Range Interpretation Comments UA pH (test code = UA pH) 5.0 5.0-8.0 [facility] [id number] 05:30:00 Test Item Value Reference Range Interpretation Comments UA Spec Grav (test code = UA Spec Grav) 1.030 [facility] [id number] 05:30:00 Test Item Value Reference Range Interpretation Comments UA Turbidity (test code Marked *ABN*(09/17/15 = UA Turbidity) 11:30 PM) [facility] [id number] 05:30:00 Test Item Value Reference Range Interpretation Comments U Preg (test code = U Negative (09/17/15 11:30 Preg) PM) [facility] [id number] 05:30:00 Test Item Value Reference Range Interpretation Comments UA Urobilinogen (test code = UA <=1.0 mg/dL 0.1-1.0 Urobilinogen) [facility] [id number] 05:30:00 Test Item Value Reference Range Interpretation Comments UA Color (test code = UA Color) [facility] [id number] 05:30:00 Test Item Value Reference Range Interpretation Comments UA Bacteria (test code = UA Many /HPF Bacteria) [facility] [id number] 05:30:00 Test Item Value Reference Range Interpretation Comments UA Mucus (test code = UA Mucus) Many /LPF [facility] [id number] 05:30:00 Test Item Value Reference Range Interpretation Comments UA Leuk Est (test code Large *ABN*(09/17/15 = UA Leuk Est) 11:30 PM) [facility] [id number] 05:30:00 Test Item Value Reference Range Interpretation Comments UA Sq Epi (test code = UA Sq Epi) Many /LPF [facility] [id number] 05:30:00 Test Item Value Reference Range Interpretation Comments UA Nitrite (test code Negative (09/17/15 11:30 = UA Nitrite) PM) [facility] [id number] 05:30:00 Test Item Value Reference Range Interpretation Comments UA WBC (test code = 16 See_Comment [Automa arvind message] The UA WBC) system which ge nerated this result transmit arvind reference range : <=5. The reference range was not used to interpr et this result as mario l/abnormal. [facility] AND [id number] 05:30:00 Test Item Value Reference Range Interpretation Comments UA RBC (test code = 5 See_Comment [Automa arvind message] The UA RBC) system which ge nerated this result transmit arvind reference range : <=2. The reference range was not used to interpr et this result as mario l/abnormal. [facility] AND [id number] 05:30:00 Test Item Value Reference Range Interpretation Comments UA Bili (test code = Negative *NA*(09/17/15 UA Bili) 11:30 PM) [facility] AND [id number] 05:30:00 Test Item Value Reference Range Interpretation Comments UA Blood (test code = Negative (09/17/15 11:30 UA Blood) PM) [facility] AND [id number] 05:30:00 Test Item Value Reference Range Interpretation Comments UA Glucose (test code = UA Negative mg/dL Glucose) [facility] AND [id number] 05:30:00 Test Item Value Reference Range Interpretation Comments UA Ketones (test code = UA Trace mg/dL Ketones) [facility] AND [id number] 05:30:00 Test Item Value Reference Range Interpretation Comments UA Protein (test code = UA Protein) 30 mg/dL [facility] AND [id number] 05:30:00 Test Item Value Reference Range Interpretation Comments UA pH (test code = UA pH) 5.0 5.0-8.0 [facility] AND [id number] 05:30:00 Test Item Value Reference Range Interpretation Comments UA Spec Grav (test code = UA Spec Grav) 1.030 [facility] AND [id number] 05:30:00 Test Item Value Reference Range Interpretation Comments UA Turbidity (test code Marked *ABN*(09/17/15 = UA Turbidity) 11:30 PM) [facility] [id number] 05:30:00 Test Item Value Reference Range Interpretation Comments U Preg (test code = U Negative (09/17/15 11:30 Preg) PM) [facility] [id number] 05:30:00 Test Item Value Reference Range Interpretation Comments UA Urobilinogen (test code = UA <=1.0 mg/dL 0.1-1.0 Urobilinogen) [facility] [id number] 05:30:00 Test Item Value Reference Range Interpretation Comments UA Color (test code = UA Color) [facility] [id number] 05:30:00 Test Item Value Reference Range Interpretation Comments UA Bacteria (test code = UA Many /HPF Bacteria) [facility] [id number] 05:30:00 Test Item Value Reference Range Interpretation Comments UA Mucus (test code = UA Mucus) Many /LPF [facility] [id number] 05:30:00 Test Item Value Reference Range Interpretation Comments UA Urobilinogen (test code = UA <=1.0 mg/dL 0.1-1.0 Urobilinogen) [facility] [id number] 05:30:00 Test Item Value Reference Range Interpretation Comments UA Color (test code = UA Color) [facility] [id number] 05:30:00 Test Item Value Reference Range Interpretation Comments UA Bacteria (test code = UA Many /HPF Bacteria) [facility] [id number] 05:30:00 Test Item Value Reference Range Interpretation Comments UA Mucus (test code = UA Mucus) Many /LPF [facility] [id number] 05:30:00 Test Item Value Reference Range Interpretation Comments UA Leuk Est (test code Large *ABN*(09/17/15 = UA Leuk Est) 11:30 PM) [facility] [id number] 05:30:00 Test Item Value Reference Range Interpretation Comments UA Sq Epi (test code = UA Sq Epi) Many /LPF [facility] [id number] 05:30:00 Test Item Value Reference Range Interpretation Comments UA Leuk Est (test code Large *ABN*(09/17/15 = UA Leuk Est) 11:30 PM) [facility] [id number] 05:30:00 Test Item Value Reference Range Interpretation Comments UA Nitrite (test code Negative (09/17/15 11:30 = UA Nitrite) PM) [facility] AND [id number] 05:30:00 Test Item Value Reference Range Interpretation Comments UA WBC (test code = 16 See_Comment [Automa arvind message] The UA WBC) system which ge nerated this result transmit arvind reference range : <=5. The reference range was not used to interpr et this result as mario l/abnormal. [facility] AND [id number] 05:30:00 Test Item Value Reference Range Interpretation Comments UA RBC (test code = 5 See_Comment [Automa arvind message] The UA RBC) system which ge nerated this result transmit arvind reference range : <=2. The reference range was not used to interpr et this result as mario l/abnormal. [facility] AND [id number] 05:30:00 Test Item Value Reference Range Interpretation Comments UA Bili (test code = Negative *NA*(09/17/15 UA Bili) 11:30 PM) [facility] AND [id number] 05:30:00 Test Item Value Reference Range Interpretation Comments UA Blood (test code = Negative (09/17/15 11:30 UA Blood) PM) [facility] AND [id number] 05:30:00 Test Item Value Reference Range Interpretation Comments UA Glucose (test code = UA Negative mg/dL Glucose) [facility] AND [id number] 05:30:00 Test Item Value Reference Range Interpretation Comments UA Ketones (test code = UA Trace mg/dL Ketones) [facility] AND [id number] 05:30:00 Test Item Value Reference Range Interpretation Comments UA Protein (test code = UA Protein) 30 mg/dL [facility] AND [id number] 05:30:00 Test Item Value Reference Range Interpretation Comments UA pH (test code = UA pH) 5.0 5.0-8.0 [facility] AND [id number] 05:30:00 Test Item Value Reference Range Interpretation Comments UA Spec Grav (test code = UA Spec Grav) 1.030 [facility] AND [id number] 05:30:00 Test Item Value Reference Range Interpretation Comments UA Sq Epi (test code = UA Sq Epi) Many /LPF [facility] AND [id number] 05:30:00 Test Item Value Reference Range Interpretation Comments UA Turbidity (test code Marked *ABN*(09/17/15 = UA Turbidity) 11:30 PM) [facility] [id number] 05:30:00 Test Item Value Reference Range Interpretation Comments U Preg (test code = U Negative (09/17/15 11:30 Preg) PM) [facility] AND [id number] 05:30:00 Test Item Value Reference Range Interpretation Comments UA Nitrite (test code Negative (09/17/15 11:30 = UA Nitrite) PM) [facility] AND [id number] 05:30:00 Test Item Value Reference Range Interpretation Comments UA WBC (test code = 16 See_Comment [Automa arvind message] The UA WBC) system which ge nerated this result transmit arvind reference range : <=5. The reference range was not used to interpr et this result as mario l/abnormal. [facility] AND [id number] 05:30:00 Test Item Value Reference Range Interpretation Comments UA RBC (test code = 5 See_Comment [Automa arvind message] The UA RBC) system which ge nerated this result transmit arvnid reference range : <=2. The reference range was not used to interpr et this result as mario l/abnormal. [facility] AND [id number] 05:30:00 Test Item Value Reference Range Interpretation Comments UA Bili (test code = Negative *NA*(09/17/15 UA Bili) 11:30 PM) [facility] AND [id number] 05:30:00 Test Item Value Reference Range Interpretation Comments UA Blood (test code = Negative (09/17/15 11:30 UA Blood) PM) [facility] AND [id number] 05:30:00 Test Item Value Reference Range Interpretation Comments UA Glucose (test code = UA Negative mg/dL Glucose) [facility] AND [id number] 05:30:00 Test Item Value Reference Range Interpretation Comments UA Ketones (test code = UA Trace mg/dL Ketones) [facility] AND [id number] 05:30:00 Test Item Value Reference Range Interpretation Comments UA Protein (test code = UA Protein) 30 mg/dL [facility] [id number] 05:30:00 Test Item Value Reference Range Interpretation Comments UA pH (test code = UA pH) 5.0 5.0-8.0 [facility] [id number] 05:30:00 Test Item Value Reference Range Interpretation Comments UA Spec Grav (test code = UA Spec Grav) 1.030 [facility] [id number] 05:30:00 Test Item Value Reference Range Interpretation Comments UA Turbidity (test code Marked *ABN*(09/17/15 = UA Turbidity) 11:30 PM) [facility] [id number] 05:30:00 Test Item Value Reference Range Interpretation Comments U Preg (test code = U Negative (09/17/15 11:30 Preg) PM) [facility] [id number] 05:30:00 Test Item Value Reference Range Interpretation Comments UA Urobilinogen (test code = UA <=1.0 mg/dL 0.1-1.0 Urobilinogen) [facility] [id number] 05:30:00 Test Item Value Reference Range Interpretation Comments UA Color (test code = UA Color) [facility] [id number] 05:30:00 Test Item Value Reference Range Interpretation Comments UA Bacteria (test code = UA Many /HPF Bacteria) [facility] [id number] 05:30:00 Test Item Value Reference Range Interpretation Comments UA Mucus (test code = UA Mucus) Many /LPF [facility] [id number] 05:30:00 Test Item Value Reference Range Interpretation Comments UA Leuk Est (test code Large *ABN*(09/17/15 = UA Leuk Est) 11:30 PM) [facility] [id number] 05:30:00 Test Item Value Reference Range Interpretation Comments UA Sq Epi (test code = UA Sq Epi) Many /LPF [facility] [id number] 05:30:00 Test Item Value Reference Range Interpretation Comments UA Nitrite (test code Negative (09/17/15 11:30 = UA Nitrite) PM) [facility] [id number] 05:30:00 Test Item Value Reference Range Interpretation Comments UA WBC (test code = 16 See_Comment [Automa arvind message] The UA WBC) system which ge nerated this result transmit arvind reference range : <=5. The reference range was not used to interpr et this result as mario l/abnormal. [facility] AND [id number] 05:30:00 Test Item Value Reference Range Interpretation Comments UA RBC (test code = 5 See_Comment [Automa arvind message] The UA RBC) system which ge nerated this result transmit arvind reference range : <=2. The reference range was not used to interpr et this result as mario l/abnormal. [facility] AND [id number] 05:30:00 Test Item Value Reference Range Interpretation Comments UA Bili (test code = Negative *NA*(09/17/15 UA Bili) 11:30 PM) [facility] AND [id number] 05:30:00 Test Item Value Reference Range Interpretation Comments UA Blood (test code = Negative (09/17/15 11:30 UA Blood) PM) [facility] AND [id number] 05:30:00 Test Item Value Reference Range Interpretation Comments UA Glucose (test code = UA Negative mg/dL Glucose) [facility] AND [id number] 05:30:00 Test Item Value Reference Range Interpretation Comments UA Ketones (test code = UA Trace mg/dL Ketones) [facility] AND [id number] 05:30:00 Test Item Value Reference Range Interpretation Comments UA Protein (test code = UA Protein) 30 mg/dL [facility] AND [id number] 05:30:00 Test Item Value Reference Range Interpretation Comments UA pH (test code = UA pH) 5.0 5.0-8.0 [facility] AND [id number] 05:30:00 Test Item Value Reference Range Interpretation Comments UA Spec Grav (test code = UA Spec Grav) 1.030 [facility] AND [id number] 05:30:00 Test Item Value Reference Range Interpretation Comments UA Turbidity (test code Marked *ABN*(09/17/15 = UA Turbidity) 11:30 PM) [facility] [id number] 05:30:00 Test Item Value Reference Range Interpretation Comments U Preg (test code = U Negative (09/17/15 11:30 Preg) PM) [facility] AND [id number] 05:30:00 Test Item Value Reference Range Interpretation Comments UA Urobilinogen (test code = UA <=1.0 mg/dL 0.1-1.0 Urobilinogen) [facility] AND [id number] 05:30:00 Test Item Value Reference Range Interpretation Comments UA Color (test code = UA Color) Marry [facility] AND [id number] 05:30:00 Test Item Value Reference Range Interpretation Comments UA Bacteria (test code = UA Many /HPF Bacteria) [facility] AND [id number] 05:30:00 Test Item Value Reference Range Interpretation Comments UA Mucus (test code = UA Mucus) Many /LPF [facility] AND [id number] 05:30:00 Test Item Value Reference Range Interpretation Comments UA Leuk Est (test code Large *ABN*(09/17/15 = UA Leuk Est) 11:30 PM) [facility] AND [id number] 05:30:00 Test Item Value Reference Range Interpretation Comments UA Sq Epi (test code = UA Sq Epi) Many /LPF [facility] AND [id number] 05:30:00 Test Item Value Reference Range Interpretation Comments UA Nitrite (test code Negative (09/17/15 11:30 = UA Nitrite) PM) [facility] AND [id number] 05:30:00 Test Item Value Reference Range Interpretation Comments UA WBC (test code = 16 See_Comment [Automa arvind message] The UA WBC) system which ge nerated this result transmit arvind reference range : <=5. The reference range was not used to interpr et this result as mario l/abnormal. [facility] AND [id number] 05:30:00 Test Item Value Reference Range Interpretation Comments UA RBC (test code = 5 See_Comment [Automa arvind message] The UA RBC) system which ge nerated this result transmit arvind reference range : <=2. The reference range was not used to interpr et this result as mario l/abnormal. [facility] AND [id number] 05:30:00 Test Item Value Reference Range Interpretation Comments UA Bili (test code = Negative *NA*(09/17/15 UA Bili) 11:30 PM) [facility] [id number] 05:30:00 Test Item Value Reference Range Interpretation Comments UA Blood (test code = Negative (09/17/15 11:30 UA Blood) PM) [facility] AND [id number] 05:30:00 Test Item Value Reference Range Interpretation Comments UA Glucose (test code = UA Negative mg/dL Glucose) [facility] AND [id number] 05:30:00 Test Item Value Reference Range Interpretation Comments UA Ketones (test code = UA Trace mg/dL Ketones) [facility] AND [id number] 05:30:00 Test Item Value Reference Range Interpretation Comments UA Protein (test code = UA Protein) 30 mg/dL [facility] AND [id number] 05:30:00 Test Item Value Reference Range Interpretation Comments UA pH (test code = UA pH) 5.0 5.0-8.0 [facility] AND [id number] 05:30:00 Test Item Value Reference Range Interpretation Comments UA Spec Grav (test code = UA Spec Grav) 1.030 [facility] AND [id number] 05:30:00 Test Item Value Reference Range Interpretation Comments UA Turbidity (test code Marked *ABN*(09/17/15 = UA Turbidity) 11:30 PM) [facility] [id number] 05:30:00 Test Item Value Reference Range Interpretation Comments U Preg (test code = U Negative (09/17/15 11:30 Preg) PM) [facility] AND [id number] 05:30:00 Test Item Value Reference Range Interpretation Comments UA Urobilinogen (test code = UA <=1.0 mg/dL 0.1-1.0 Urobilinogen) [facility] AND [id number] 05:30:00 Test Item Value Reference Range Interpretation Comments UA Color (test code = UA Color) Marry [facility] AND [id number] 05:30:00 Test Item Value Reference Range Interpretation Comments UA Bacteria (test code = UA Many /HPF Bacteria) [facility] [id number] 05:30:00 Test Item Value Reference Range Interpretation Comments UA Mucus (test code = UA Mucus) Many /LPF [facility] AND [id number] 05:30:00 Test Item Value Reference Range Interpretation Comments UA Leuk Est (test code Large *ABN*(09/17/15 = UA Leuk Est) 11:30 PM) [facility] AND [id number] 05:30:00 Test Item Value Reference Range Interpretation Comments UA Sq Epi (test code = UA Sq Epi) Many /LPF [facility] AND [id number] 05:30:00 Test Item Value Reference Range Interpretation Comments UA Nitrite (test code Negative (09/17/15 11:30 = UA Nitrite) PM) [facility] AND [id number] 05:30:00 Test Item Value Reference Range Interpretation Comments UA WBC (test code = 16 See_Comment [Automa arvind message] The UA WBC) system which ge nerated this result transmit arvind reference range : <=5. The reference range was not used to interpr et this result as mario l/abnormal. [facility] AND [id number] 05:30:00 Test Item Value Reference Range Interpretation Comments UA RBC (test code = 5 See_Comment [Automa arvind message] The UA RBC) system which ge nerated this result transmit arvind reference range : <=2. The reference range was not used to interpr et this result as mario l/abnormal. [facility] AND [id number] 05:30:00 Test Item Value Reference Range Interpretation Comments UA Bili (test code = Negative *NA*(09/17/15 UA Bili) 11:30 PM) [facility] AND [id number] 05:30:00 Test Item Value Reference Range Interpretation Comments UA Blood (test code = Negative (09/17/15 11:30 UA Blood) PM) [facility] AND [id number] 05:30:00 Test Item Value Reference Range Interpretation Comments UA Glucose (test code = UA Negative mg/dL Glucose) [facility] AND [id number] 05:30:00 Test Item Value Reference Range Interpretation Comments UA Ketones (test code = UA Trace mg/dL Ketones) [facility] AND [id number] 05:30:00 Test Item Value Reference Range Interpretation Comments UA Protein (test code = UA Protein) 30 mg/dL [facility] [id number] 05:30:00 Test Item Value Reference Range Interpretation Comments UA pH (test code = UA pH) 5.0 5.0-8.0 [facility] [id number] 05:30:00 Test Item Value Reference Range Interpretation Comments UA Spec Grav (test code = UA Spec Grav) 1.030 [facility] [id number] 05:30:00 Test Item Value Reference Range Interpretation Comments UA Turbidity (test code Marked *ABN*(09/17/15 = UA Turbidity) 11:30 PM) [facility] [id number] 05:30:00 Test Item Value Reference Range Interpretation Comments U Preg (test code = U Negative (09/17/15 11:30 Preg) PM) [facility] [id number] 05:30:00 Test Item Value Reference Range Interpretation Comments UA Urobilinogen (test code = UA <=1.0 mg/dL 0.1-1.0 Urobilinogen) [facility] [id number] 05:30:00 Test Item Value Reference Range Interpretation Comments UA Color (test code = UA Color) [facility] [id number] 05:30:00 Test Item Value Reference Range Interpretation Comments UA Bacteria (test code = UA Many /HPF Bacteria) [facility] [id number] 05:30:00 Test Item Value Reference Range Interpretation Comments UA Mucus (test code = UA Mucus) Many /LPF [facility] [id number] 05:30:00 Test Item Value Reference Range Interpretation Comments UA Leuk Est (test code Large *ABN*(09/17/15 = UA Leuk Est) 11:30 PM) [facility] [id number] 05:30:00 Test Item Value Reference Range Interpretation Comments UA Sq Epi (test code = UA Sq Epi) Many /LPF [facility] [id number] 05:30:00 Test Item Value Reference Range Interpretation Comments UA Nitrite (test code Negative (09/17/15 11:30 = UA Nitrite) PM) [facility] [id number] 05:30:00 Test Item Value Reference Range Interpretation Comments UA WBC (test code = 16 See_Comment [Automa arvind message] The UA WBC) system which ge nerated this result transmit arvind reference range : <=5. The reference range was not used to interpr et this result as mario l/abnormal. [facility] AND [id number] 05:30:00 Test Item Value Reference Range Interpretation Comments UA RBC (test code = 5 See_Comment [Automa arvind message] The UA RBC) system which ge nerated this result transmit arvind reference range : <=2. The reference range was not used to interpr et this result as mario l/abnormal. [facility] AND [id number] 05:30:00 Test Item Value Reference Range Interpretation Comments UA Bili (test code = Negative *NA*(09/17/15 UA Bili) 11:30 PM) [facility] AND [id number] 05:30:00 Test Item Value Reference Range Interpretation Comments UA Blood (test code = Negative (09/17/15 11:30 UA Blood) PM) [facility] AND [id number] 05:30:00 Test Item Value Reference Range Interpretation Comments UA Glucose (test code = UA Negative mg/dL Glucose) [facility] AND [id number] 05:30:00 Test Item Value Reference Range Interpretation Comments UA Ketones (test code = UA Trace mg/dL Ketones) [facility] AND [id number] 05:30:00 Test Item Value Reference Range Interpretation Comments UA Protein (test code = UA Protein) 30 mg/dL [facility] AND [id number] 05:30:00 Test Item Value Reference Range Interpretation Comments UA pH (test code = UA pH) 5.0 5.0-8.0 [facility] AND [id number] 05:30:00 Test Item Value Reference Range Interpretation Comments UA Spec Grav (test code = UA Spec Grav) 1.030 [facility] AND [id number] 05:30:00 Test Item Value Reference Range Interpretation Comments UA Turbidity (test code Marked *ABN*(09/17/15 = UA Turbidity) 11:30 PM) [facility] [id number] 05:30:00 Test Item Value Reference Range Interpretation Comments U Preg (test code = U Negative (09/17/15 11:30 Preg) PM) [facility]2016-01-20 02:01:00 Test Item Value Reference Range Interpretation Comments Lipase Lvl (test code = Lipase Lvl) 196 73-393 [facility] [id number] 02:01:00 Test Item Value Reference Range Interpretation Comments Amylase Lvl (test code = Amylase Lvl) 33 25-115 [id number] 02:01:00 Test Item Value Reference Range Interpretation Comments AGAP (test code = AGAP) 10.7 10.0-20.0 [id number] 02:01:00 Test Item Value Reference Range Interpretation Comments A/G Ratio (test code = A/G Ratio) 1.2 0.7-1.6 [facility] Sy[id number] 02:01:00 Test Item Value Reference Range Interpretation Comments Globulin (test code = Globulin) 3.1 2.0-4.0 [facility] S[id number] 02:01:00 Test Item Value Reference Range Interpretation Comments B/C Ratio (test code = B/C Ratio) 13 6-25 [facility] S[id number] 02:01:00 Test Item Value Reference Range Interpretation Comments Total Protein (test code = Total 6.9 6.4-8.4 Protein) [facility] S[id number] 02:01:00 Test Item Value Reference Range Interpretation Comments Calcium Lvl (test code = Calcium Lvl) 9.0 8.5-10.5 [facility] System[id number] 02:01:00 Test Item Value Reference Range Interpretation Comments CO2 (test code = CO2) 26 24-32 [facility] SystemXuerkjtQXAJVVLPJKNM3478-03-04 02:01:00 Test Item Value Reference Range Interpretation Comments eGFR (test code = eGFR) 110 [id number] 02:01:00 Test Item Value Reference Range Interpretation Comments Bili Total (test code = Bili Total) 0.3 0.2-1.3 [facility] Sy[id number] 02:01:00 Test Item Value Reference Range Interpretation Comments Alk Phos (test code = Alk Phos) 84 39-136 [facility] System[id number] 02:01:00 Test Item Value Reference Range Interpretation Comments AST (test code = AST) 17 See_Comment [Auto mated message] The system which ge nerated this result transmit arvind reference range : <=37. The reference range was not used to interpr et this result as mario l/abnormal. [facility] [id number] 02:01:00 Test Item Value Reference Range Interpretation Comments ALT (test code = ALT) 42 See_Comment [Auto mated message] The system which ge nerated this result transmit arvind reference range : <=65. The reference range was not used to interpr et this result as mario l/abnormal. [facility] SystemVdnlcieLETXWTBFUQGQ0136-64-01 02:01:00 Test Item Value Reference Range Interpretation Comments Albumin Lvl (test code = Albumin Lvl) 3.8 3.5-5.0 [facility] Sys[id number] 02:01:00 Test Item Value Reference Range Interpretation Comments Sodium Lvl (test code = Sodium Lvl) 139 135-145 [facility] SystemLvicrpoFCPJTBYWSBNS7858-96-73 02:01:00 Test Item Value Reference Range Interpretation Comments Chloride Lvl (test code = Chloride Lvl) 106 95-109 [facility] SystemWegyoeeGWKTGJWGQCCP0833-29-12 02:01:00 Test Item Value Reference Range Interpretation Comments Potassium Lvl (test code = Potassium 3.7 3.5-5.1 Lvl) [facility] Sy[id number] 02:01:00 Test Item Value Reference Range Interpretation Comments BUN (test code = BUN) 10 7-22 [facility] SystemExllycmMFUWCOVIVBOL7719-10-46 02:01:00 Test Item Value Reference Range Interpretation Comments Glucose Lvl (test code = Glucose Lvl) 88 70-99 [facility] Sys[id number] 02:01:00 Test Item Value Reference Range Interpretation Comments Creatinine Lvl (test code = Creatinine 0.76 0.50-1.40 Lvl) [facility]zrsejkQFUOFEIVMR1679-74-62 02:01:00 Test Item Value Reference Range Interpretation Comments Segs-Bands # (test code = Segs-Bands #) 5.4 1.5-8.1 [id number] 02:01:00 Test Item Value Reference Range Interpretation Comments Basophils (test code = 1.0 See_Comment [Aut omated message] The Basophils) system which ge nerated this result tra nsmitted reference range : <=1.0. The reference r kat was not used to int erpret this result as normal/abnormal . [facility] HospitalUutkhblUHWTJMCWVB5158-33-05 02:01:00 Test Item Value Reference Range Interpretation Comments Monocytes # (test code 0.7 See_Comment [Aut omated message] The = Monocytes #) system which generated this result tra nsmitted reference range : <=0.8. The reference r kat was not used to int erpret this result as normal/abnormal . [facility] HospitalVedibfsLWWRYCFAZC4063-96-01 02:01:00 Test Item Value Reference Range Interpretation Comments Lymphocytes (test code = Lymphocytes) 35.1 20.0-40.0 [facility] Hospit[id number] 02:01:00 Test Item Value Reference Range Interpretation Comments Lymphocytes # (test code = Lymphocytes 3.5 1.0-5.5 #) [facility] HospitalAdfmjhcOCDXLNZFIS8916-43-91 02:01:00 Test Item Value Reference Range Interpretation Comments Monocytes (test code = Monocytes) 6.7 2.0-12.0 [facility] HospitalXpwnrfdTHYVNZDSFO5780-74-27 02:01:00 Test Item Value Reference Range Interpretation Comments Segs (test code = Segs) 54.8 45.0-75.0 [facility] HospitalJwzcdypTIGEJUYMBU0603-56-97 02:01:00 Test Item Value Reference Range Interpretation Comments Eosinophils (test code = 2.4 See_Comment [A utomated message] The Eosinophils) system which ge nerated this result tra nsmitted reference range : <=4.0. The reference r kat was not used to int erpret this result as normal/abnormal . [facility] HospitalBewgukfNXQNLGVLCM6888-51-54 02:01:00 Test Item Value Reference Range Interpretation Comments Basophils # (test code 0.1 See_Comment [Aut omated message] The = Basophils #) system which generated this result tra nsmitted reference range : <=0.2. The reference r kat was not used to int erpret this result as normal/abnormal . [facility] HospitalSjdgsnvUUTBRZTLGG0500-75-73 02:01:00 Test Item Value Reference Range Interpretation Comments Microcyte (test code = 1+ *ABN*(09/17/15 Microcyte) 8:01 PM) [facility] HospitalYvxovmhRATCHDNUQN4011-73-15 02:01:00 Test Item Value Reference Range Interpretation Comments Eosinophils # (test code 0.2 See_Comment [A utomated message] The = Eosinophils #) system whic h generated this result tra nsmitted reference range : <=0.5. The reference r kat was not used to int erpret this result as normal/abnormal . [facility] HospitalEtovyatCABOFVLOCZ5212-69-06 02:01:00 Test Item Value Reference Range Interpretation Comments MPV (test code = MPV) 10.0 7.4-10.4 [facility] HospitalDfglgcoJWJZAHROOE4522-00-95 02:01:00 Test Item Value Reference Range Interpretation Comments RDW (test code = RDW) 16.9 11.5-14.5 [facility] HospitalKdoalqzYEFGZUYLHE6196-58-98 02:01:00 Test Item Value Reference Range Interpretation Comments Platelet (test code = Platelet) 208 133-450 [facility] HospitalWcyfehtFLQQQNGATJ4109-26-73 02:01:00 Test Item Value Reference Range Interpretation Comments MCV (test code = MCV) 77.9 80.0-98.0 [facility] HospitalNwpsnrfZIUIDCLBTR8627-19-11 02:01:00 Test Item Value Reference Range Interpretation Comments MCH (test code = MCH) 24.2 pg 27.0-31.0 [facility] HospitalIttpxavINSURVKLSI4659-34-51 02:01:00 Test Item Value Reference Range Interpretation Comments MCHC (test code = MCHC) 31.1 32.0-36.0 [facility] HospitalDpuhnxiTGIBHEBKNK6288-17-42 02:01:00 Test Item Value Reference Range Interpretation Comments Hgb (test code = Hgb) 13.3 12.0-16.0 [facility] HospitalExbraghFDEEZAEYRF4202-48-10 02:01:00 Test Item Value Reference Range Interpretation Comments Hct (test code = Hct) 42.6 36.0-48.0 [facility]TxxufitODTNSSTAQR8086-37-37 02:01:00 Test Item Value Reference Range Interpretation Comments WBC (test code = WBC) 9.9 3.7-10.4 [facility]XkpdgbqWFNEAWXXPR6465-08-41 02:01:00 Test Item Value Reference Range Interpretation Comments RBC (test code = RBC) 5.47 4.20-5.40 [facility] LNHPI0977-57-22 02:01:00 Test Item Value Reference Range Interpretation Comments Lipase Lvl (test code = Lipase Lvl) 196 73-393 [facility] HGZJH6701-41-73 02:01:00 Test Item Value Reference Range Interpretation Comments Amylase Lvl (test code = Amylase Lvl) 33 25-115 [facility]BtashudWRYEXTAVELVL6633-78-84 02:01:00 Test Item Value Reference Range Interpretation Comments AGAP (test code = AGAP) 10.7 10.0-20.0 [facility]CvxklwwWDYGUVYEYHAC7143-72-86 02:01:00 Test Item Value Reference Range Interpretation Comments A/G Ratio (test code = A/G Ratio) 1.2 0.7-1.6 [facility] SystemAuxthqjHYYOMFYBULTR2002-04-07 02:01:00 Test Item Value Reference Range Interpretation Comments Globulin (test code = Globulin) 3.1 2.0-4.0 [facility] SystemUsvinasVVEJQDHRTHIM0602-63-87 02:01:00 Test Item Value Reference Range Interpretation Comments B/C Ratio (test code = B/C Ratio) 13 6-25 [facility] SystemDngbyrlCQKDCCMWBRPD1044-89-67 02:01:00 Test Item Value Reference Range Interpretation Comments Total Protein (test code = Total 6.9 6.4-8.4 Protein) [facility] SystemYvvkcjiVXRJRDDSWZXA3258-57-91 02:01:00 Test Item Value Reference Range Interpretation Comments Calcium Lvl (test code = Calcium Lvl) 9.0 8.5-10.5 [facility] SystemYxmznucBLOTREJWVQVO6721-11-77 02:01:00 Test Item Value Reference Range Interpretation Comments CO2 (test code = CO2) 26 24-32 [facility] SystemNulbfnwSCASOENAGDOM0440-68-18 02:01:00 Test Item Value Reference Range Interpretation Comments eGFR (test code = eGFR) 110 [facility]QeccwhyTOLWTPHKIMUG3883-53-34 02:01:00 Test Item Value Reference Range Interpretation Comments Bili Total (test code = Bili Total) 0.3 0.2-1.3 [facility] SystemAkgluypKTDFYVNIXNRT7904-52-72 02:01:00 Test Item Value Reference Range Interpretation Comments Alk Phos (test code = Alk Phos) 84 39-136 [facility] SystemRgzapuuPYTMRDTQANRP8041-03-97 02:01:00 Test Item Value Reference Range Interpretation Comments AST (test code = AST) 17 See_Comment [Auto mated message] The system which ge nerated this result transmit arvind reference range : <=37. The reference range was not used to interpr et this result as mario l/abnormal. [facility] SystemTxipiypSPNSAWSKWSVR4458-74-64 02:01:00 Test Item Value Reference Range Interpretation Comments ALT (test code = ALT) 42 See_Comment [Auto mated message] The system which ge nerated this result transmit arvind reference range : <=65. The reference range was not used to interpr et this result as mario l/abnormal. [facility] SystemAffvotkMKZVYZOIYBSK9327-28-42 02:01:00 Test Item Value Reference Range Interpretation Comments Albumin Lvl (test code = Albumin Lvl) 3.8 3.5-5.0 [facility] SystemPiavvwpTUZWJLQXEYTM8200-20-68 02:01:00 Test Item Value Reference Range Interpretation Comments Sodium Lvl (test code = Sodium Lvl) 139 135-145 [facility] SystemBxqrhaxSYFZSODHASGA2584-55-65 02:01:00 Test Item Value Reference Range Interpretation Comments Chloride Lvl (test code = Chloride Lvl) 106 95-109 [facility] SystemOdozadbICELEWAPDBAX3652-67-44 02:01:00 Test Item Value Reference Range Interpretation Comments Potassium Lvl (test code = Potassium 3.7 3.5-5.1 Lvl) [facility] SystemDotindkLNMSUNXFCSAO2483-26-22 02:01:00 Test Item Value Reference Range Interpretation Comments BUN (test code = BUN) 10 7-22 [facility] SystemJbhptusIVQPKLOZCDUO6813-34-04 02:01:00 Test Item Value Reference Range Interpretation Comments Glucose Lvl (test code = Glucose Lvl) 88 70-99 [facility] SystemOuvrabfYOAADYADRVOV9295-84-28 02:01:00 Test Item Value Reference Range Interpretation Comments Creatinine Lvl (test code = Creatinine 0.76 0.50-1.40 Lvl) [facility] CenterHcwgidhWWLIVUYVVF4346-45-55 02:01:00 Test Item Value Reference Range Interpretation Comments Segs-Bands # (test code = Segs-Bands #) 5.4 1.5-8.1 [facility] HospitalZmzffgyLKDRVPOZHL3897-02-38 02:01:00 Test Item Value Reference Range Interpretation Comments Basophils (test code = 1.0 See_Comment [Aut omated message] The Basophils) system which ge nerated this result tra nsmitted reference range : <=1.0. The reference r kat was not used to int erpret this result as normal/abnormal . [facility] HospitalRgmflkjLUNEZXQRHA9690-08-03 02:01:00 Test Item Value Reference Range Interpretation Comments Monocytes # (test code 0.7 See_Comment [Aut omated message] The = Monocytes #) system which generated this result tra nsmitted reference range : <=0.8. The reference r kat was not used to int erpret this result as normal/abnormal . [facility] HospitalWcnamokUMTDFYLGJS3916-05-95 02:01:00 Test Item Value Reference Range Interpretation Comments Lymphocytes (test code = Lymphocytes) 35.1 20.0-40.0 [facility] HospitalZtbwixbVSXLVDCWMK9959-84-40 02:01:00 Test Item Value Reference Range Interpretation Comments Lymphocytes # (test code = Lymphocytes 3.5 1.0-5.5 #) [facility] HospitalTqlndlfCJHSCSLFON5405-46-86 02:01:00 Test Item Value Reference Range Interpretation Comments Monocytes (test code = Monocytes) 6.7 2.0-12.0 [facility] HospitalWzvhfdyCECVLDCYGO8232-19-72 02:01:00 Test Item Value Reference Range Interpretation Comments Segs (test code = Segs) 54.8 45.0-75.0 [facility] HospitalOfgcjhfYDEWGGPRXH9762-08-60 02:01:00 Test Item Value Reference Range Interpretation Comments Eosinophils (test code = 2.4 See_Comment [A utomated message] The Eosinophils) system which ge nerated this result tra nsmitted reference range : <=4.0. The reference r kat was not used to int erpret this result as normal/abnormal . [facility] HospitalUssuzyxXZICOODLTZ1153-99-09 02:01:00 Test Item Value Reference Range Interpretation Comments Basophils # (test code 0.1 See_Comment [Aut omated message] The = Basophils #) system which generated this result tra nsmitted reference range : <=0.2. The reference r kat was not used to int erpret this result as normal/abnormal . [facility] HospitalZkgnmdyYVQYZLQHMD5191-52-95 02:01:00 Test Item Value Reference Range Interpretation Comments Microcyte (test code = 1+ *ABN*(09/17/15 Microcyte) 8:01 PM) [facility] HospitalGrmkmgqCBFNKBWCKQ7862-88-24 02:01:00 Test Item Value Reference Range Interpretation Comments Eosinophils # (test code 0.2 See_Comment [A utomated message] The = Eosinophils #) system whic h generated this result tra nsmitted reference range : <=0.5. The reference r kat was not used to int erpret this result as normal/abnormal . [facility] HospitalKmpzvjjELHPIKOOAM5221-63-01 02:01:00 Test Item Value Reference Range Interpretation Comments MPV (test code = MPV) 10.0 7.4-10.4 [facility] HospitalOetclslZLVDLYMDLO4656-98-63 02:01:00 Test Item Value Reference Range Interpretation Comments RDW (test code = RDW) 16.9 11.5-14.5 [facility] HospitalOruhayjDRDCGLSWQM2654-27-86 02:01:00 Test Item Value Reference Range Interpretation Comments Platelet (test code = Platelet) 208 133-450 [facility] HospitalFdaayyrCSLRAMSWOG2306-51-74 02:01:00 Test Item Value Reference Range Interpretation Comments MCV (test code = MCV) 77.9 80.0-98.0 [facility] HospitalWgkmuuxZDDEPMGGUY9206-71-15 02:01:00 Test Item Value Reference Range Interpretation Comments MCH (test code = MCH) 24.2 pg 27.0-31.0 [facility] HospitalHeyqpvbJHUPTGFYLJ7171-66-10 02:01:00 Test Item Value Reference Range Interpretation Comments MCHC (test code = MCHC) 31.1 32.0-36.0 [facility] HospitalWaabszeKKGXHELLXP9176-23-63 02:01:00 Test Item Value Reference Range Interpretation Comments Hgb (test code = Hgb) 13.3 12.0-16.0 [facility] HospitalKkmxqsuLLJZBDBDKC5646-25-84 02:01:00 Test Item Value Reference Range Interpretation Comments Hct (test code = Hct) 42.6 36.0-48.0 [facility] HospitalFafppvuBFMCEBYHUX4543-27-15 02:01:00 Test Item Value Reference Range Interpretation Comments WBC (test code = WBC) 9.9 3.7-10.4 [facility] HospitalFlytlioXNATEHMYPG2211-80-60 02:01:00 Test Item Value Reference Range Interpretation Comments RBC (test code = RBC) 5.47 4.20-5.40 [facility] ZJKMR4024-40-79 02:01:00 Test Item Value Reference Range Interpretation Comments Lipase Lvl (test code = Lipase Lvl) 196 73-393 [facility] UHZGH9679-82-35 02:01:00 Test Item Value Reference Range Interpretation Comments Amylase Lvl (test code = Amylase Lvl) 33 25-115 [facility]TuwskzdUQHQZMPWJCMB3500-93-71 02:01:00 Test Item Value Reference Range Interpretation Comments AGAP (test code = AGAP) 10.7 10.0-20.0 [facility] SystemTmkcnqlETAHXKFHRJEQ8608-88-59 02:01:00 Test Item Value Reference Range Interpretation Comments A/G Ratio (test code = A/G Ratio) 1.2 0.7-1.6 [facility] SystemFuegfysYWNCMSGHHOHJ4224-35-00 02:01:00 Test Item Value Reference Range Interpretation Comments Globulin (test code = Globulin) 3.1 2.0-4.0 [facility] SystemHkibmhbQEGMXYITREEP4834-29-41 02:01:00 Test Item Value Reference Range Interpretation Comments B/C Ratio (test code = B/C Ratio) 13 6-25 [facility] SystemJnezcguKZUHHWKXWUGV4380-85-98 02:01:00 Test Item Value Reference Range Interpretation Comments Total Protein (test code = Total 6.9 6.4-8.4 Protein) [facility] SystemOteuhqxWWZUSPQUFHXM9621-20-15 02:01:00 Test Item Value Reference Range Interpretation Comments Calcium Lvl (test code = Calcium Lvl) 9.0 8.5-10.5 [facility] SystemSxpnimoKZPFPCAAGQRW0208-10-60 02:01:00 Test Item Value Reference Range Interpretation Comments CO2 (test code = CO2) 26 24-32 [facility] SystemJuchlemNTLECCNRQJVC4671-25-45 02:01:00 Test Item Value Reference Range Interpretation Comments eGFR (test code = eGFR) 110 [facility] SystemCpbiggmKIDVBTLLOEDX5473-54-21 02:01:00 Test Item Value Reference Range Interpretation Comments Bili Total (test code = Bili Total) 0.3 0.2-1.3 [facility] SystemJblefzdIPHZPUODYUFC2803-44-82 02:01:00 Test Item Value Reference Range Interpretation Comments Alk Phos (test code = Alk Phos) 84 39-136 [facility] SystemQzjpkptOYTNKZWOZDCK9078-39-46 02:01:00 Test Item Value Reference Range Interpretation Comments AST (test code = AST) 17 See_Comment [Auto mated message] The system which ge nerated this result transmit arvind reference range : <=37. The reference range was not used to interpr et this result as mario l/abnormal. [facility] SystemPghodyhUIYBHZGFYTTG8671-32-44 02:01:00 Test Item Value Reference Range Interpretation Comments ALT (test code = ALT) 42 See_Comment [Auto mated message] The system which ge nerated this result transmit arvind reference range : <=65. The reference range was not used to interpr et this result as mario l/abnormal. [facility] SystemWojwrifQYUDNOCFOAWT0101-50-41 02:01:00 Test Item Value Reference Range Interpretation Comments Albumin Lvl (test code = Albumin Lvl) 3.8 3.5-5.0 [facility] SystemOgoigenSRMBQBQNGSLL9806-22-25 02:01:00 Test Item Value Reference Range Interpretation Comments Sodium Lvl (test code = Sodium Lvl) 139 135-145 [facility] SystemOhrfmuyLLYILZMHHDCZ6628-08-56 02:01:00 Test Item Value Reference Range Interpretation Comments Chloride Lvl (test code = Chloride Lvl) 106 95-109 [facility] SystemTigrhbuUIZJQCHNUVMP4936-82-18 02:01:00 Test Item Value Reference Range Interpretation Comments Potassium Lvl (test code = Potassium 3.7 3.5-5.1 Lvl) [facility] SystemSzfgqonJFTEDKHBUEXU0464-64-43 02:01:00 Test Item Value Reference Range Interpretation Comments BUN (test code = BUN) 10 7-22 [facility] SystemBodguqsMREXJDJAQHQX6253-55-42 02:01:00 Test Item Value Reference Range Interpretation Comments Glucose Lvl (test code = Glucose Lvl) 88 70-99 [facility]XlmyhigFMUBRMPRJNKP2877-44-53 02:01:00 Test Item Value Reference Range Interpretation Comments Creatinine Lvl (test code = Creatinine 0.76 0.50-1.40 Lvl) [facility] HospitalYmlekkhRNLCVQFKMY5757-74-16 02:01:00 Test Item Value Reference Range Interpretation Comments Segs-Bands # (test code = Segs-Bands #) 5.4 1.5-8.1 [facility] HospitalRkmmlhjWDZTYCMNTE2873-22-86 02:01:00 Test Item Value Reference Range Interpretation Comments Basophils (test code = 1.0 See_Comment [Aut omated message] The Basophils) system which ge nerated this result tra nsmitted reference range : <=1.0. The reference r kat was not used to int erpret this result as normal/abnormal . [facility] HospitalRugnyfhBVEGRKZDOL5526-17-10 02:01:00 Test Item Value Reference Range Interpretation Comments Monocytes # (test code 0.7 See_Comment [Aut omated message] The = Monocytes #) system which generated this result tra nsmitted reference range : <=0.8. The reference r kat was not used to int erpret this result as normal/abnormal . [facility] HospitalEkuwypgOHTNBXDZPG0360-51-29 02:01:00 Test Item Value Reference Range Interpretation Comments Lymphocytes (test code = Lymphocytes) 35.1 20.0-40.0 [facility] HospitalTuvdcwoPKAIUCJGFX7005-21-49 02:01:00 Test Item Value Reference Range Interpretation Comments Lymphocytes # (test code = Lymphocytes 3.5 1.0-5.5 #) [facility] HospitalGrmmrhhIKFAVJURIA9597-50-19 02:01:00 Test Item Value Reference Range Interpretation Comments Monocytes (test code = Monocytes) 6.7 2.0-12.0 [facility] HospitalIwijjtiTZWSLAQPSL2353-40-74 02:01:00 Test Item Value Reference Range Interpretation Comments Segs (test code = Segs) 54.8 45.0-75.0 [facility] HospitalCwtklhiUPOFRJRMXQ7264-41-35 02:01:00 Test Item Value Reference Range Interpretation Comments Eosinophils (test code = 2.4 See_Comment [A utomated message] The Eosinophils) system which ge nerated this result tra nsmitted reference range : <=4.0. The reference r kat was not used to int erpret this result as normal/abnormal . [facility] HospitalHoqdjeyGUFBTSOTOM6822-90-09 02:01:00 Test Item Value Reference Range Interpretation Comments Basophils # (test code 0.1 See_Comment [Aut omated message] The = Basophils #) system which generated this result tra nsmitted reference range : <=0.2. The reference r kat was not used to int erpret this result as normal/abnormal . [facility] HospitalXnqyyqmFDVHWCZYAH7959-88-80 02:01:00 Test Item Value Reference Range Interpretation Comments Microcyte (test code = 1+ *ABN*(09/17/15 Microcyte) 8:01 PM) [facility] HospitalGagsqsuMAVOERAVTK8583-54-21 02:01:00 Test Item Value Reference Range Interpretation Comments Eosinophils # (test code 0.2 See_Comment [A utomated message] The = Eosinophils #) system [employer] Self Representation Document Preparationic h generated this result tra nsmitted reference range : <=0.5. The reference r kat was not used to int erpret this result as normal/abnormal . [facility] HospitalBhzesvgXOIEDOAWQY9204-31-93 02:01:00 Test Item Value Reference Range Interpretation Comments MPV (test code = MPV) 10.0 7.4-10.4 [facility] HospitalNalagvrBNSMHOMTIB6176-13-29 02:01:00 Test Item Value Reference Range Interpretation Comments RDW (test code = RDW) 16.9 11.5-14.5 [facility] HospitalCszknafXQUVLOCDDG0268-93-45 02:01:00 Test Item Value Reference Range Interpretation Comments Platelet (test code = Platelet) 208 133-450 [facility] HospitalTxjpuboCWNXGOYWCH6468-64-15 02:01:00 Test Item Value Reference Range Interpretation Comments MCV (test code = MCV) 77.9 80.0-98.0 [facility] HospitalHpschyoGKBXVIJLQT2457-92-48 02:01:00 Test Item Value Reference Range Interpretation Comments MCH (test code = MCH) 24.2 pg 27.0-31.0 [facility] HospitalIhfovxtQJOKGUCTPS9682-50-48 02:01:00 Test Item Value Reference Range Interpretation Comments MCHC (test code = MCHC) 31.1 32.0-36.0 [facility] HospitalIhdljmlYOKWADAJFT3961-13-34 02:01:00 Test Item Value Reference Range Interpretation Comments Hgb (test code = Hgb) 13.3 12.0-16.0 [facility] HospitalWzyynlhNEILHPMWZW2645-37-11 02:01:00 Test Item Value Reference Range Interpretation Comments Hct (test code = Hct) 42.6 36.0-48.0 [facility] HospitalYweellcTWWZMBOJXA7785-17-46 02:01:00 Test Item Value Reference Range Interpretation Comments WBC (test code = WBC) 9.9 3.7-10.4 [facility] HospitalNbqzdjiNFVMHCPFAQ5733-34-72 02:01:00 Test Item Value Reference Range Interpretation Comments RBC (test code = RBC) 5.47 4.20-5.40 [facility] KYQFJ3754-90-21 02:01:00 Test Item Value Reference Range Interpretation Comments Lipase Lvl (test code = Lipase Lvl) 196 73-393 [facility] EXUYO4104-34-08 02:01:00 Test Item Value Reference Range Interpretation Comments Amylase Lvl (test code = Amylase Lvl) 33 25-115 [facility]BcvdmrbESEJTJYENVRH4395-14-75 02:01:00 Test Item Value Reference Range Interpretation Comments AGAP (test code = AGAP) 10.7 10.0-20.0 [facility] SystemGkiglnsOETSWKDRGSSM3366-58-86 02:01:00 Test Item Value Reference Range Interpretation Comments A/G Ratio (test code = A/G Ratio) 1.2 0.7-1.6 [facility] SystemMvdccckEKOFXTRFLYPI5471-81-43 02:01:00 Test Item Value Reference Range Interpretation Comments Globulin (test code = Globulin) 3.1 2.0-4.0 [facility] SystemVtgmhqcHKGXPOAHQAAP3963-20-95 02:01:00 Test Item Value Reference Range Interpretation Comments B/C Ratio (test code = B/C Ratio) 13 6-25 [facility] SystemCdmspbnXQKNYPDRLQTN2274-13-34 02:01:00 Test Item Value Reference Range Interpretation Comments Total Protein (test code = Total 6.9 6.4-8.4 Protein) [facility] SystemDtcviflYUIAJSYGLKNC9722-88-54 02:01:00 Test Item Value Reference Range Interpretation Comments Calcium Lvl (test code = Calcium Lvl) 9.0 8.5-10.5 [facility] SystemRzhevrzNUUUSGFWIFCC7383-19-92 02:01:00 Test Item Value Reference Range Interpretation Comments CO2 (test code = CO2) 26 24-32 [facility] SystemTvvjcswRXCGVPVBDTSN9086-12-65 02:01:00 Test Item Value Reference Range Interpretation Comments eGFR (test code = eGFR) 110 [facility] SystemNhevypfVNLCFDZVOMUZ4646-34-07 02:01:00 Test Item Value Reference Range Interpretation Comments Bili Total (test code = Bili Total) 0.3 0.2-1.3 [facility] SystemKhjflwzBTRNRSCRLISH0130-00-97 02:01:00 Test Item Value Reference Range Interpretation Comments Alk Phos (test code = Alk Phos) 84 39-136 [facility] SystemIbkpasjYLMQUXNQAZLU7467-98-87 02:01:00 Test Item Value Reference Range Interpretation Comments AST (test code = AST) 17 See_Comment [Auto mated message] The system which ge nerated this result transmit arvind reference range : <=37. The reference range was not used to interpr et this result as mario l/abnormal. [facility] SystemQbjpkkkRAVASXXMZEJA7659-15-05 02:01:00 Test Item Value Reference Range Interpretation Comments ALT (test code = ALT) 42 See_Comment [Auto mated message] The system which ge nerated this result transmit arvind reference range : <=65. The reference range was not used to interpr et this result as mario l/abnormal. [facility] SystemGlkmxybIPLIBNPWZNHK0611-39-89 02:01:00 Test Item Value Reference Range Interpretation Comments Albumin Lvl (test code = Albumin Lvl) 3.8 3.5-5.0 [facility] SystemPtuezcvKJJZQSHZFHWC6729-01-61 02:01:00 Test Item Value Reference Range Interpretation Comments Sodium Lvl (test code = Sodium Lvl) 139 135-145 [facility] SystemTkdzabnKDFLNNCLAOZB0279-37-28 02:01:00 Test Item Value Reference Range Interpretation Comments Chloride Lvl (test code = Chloride Lvl) 106 95-109 [facility] SystemKujhcsqTGQSXPUYUQFT0322-07-49 02:01:00 Test Item Value Reference Range Interpretation Comments Potassium Lvl (test code = Potassium 3.7 3.5-5.1 Lvl) [facility] SystemLxkprjwFERDFIGXYMPJ0756-12-17 02:01:00 Test Item Value Reference Range Interpretation Comments BUN (test code = BUN) 10 7-22 [facility] SystemQzzqbvwFSWFPBPHDAPM5406-59-43 02:01:00 Test Item Value Reference Range Interpretation Comments Glucose Lvl (test code = Glucose Lvl) 88 70-99 [facility] SystemNhfjeqmEZASUCMEMSSP8192-64-20 02:01:00 Test Item Value Reference Range Interpretation Comments Creatinine Lvl (test code = Creatinine 0.76 0.50-1.40 Lvl) [facility] HospitalIoujeroDCABDBAZZP3512-80-45 02:01:00 Test Item Value Reference Range Interpretation Comments Segs-Bands # (test code = Segs-Bands #) 5.4 1.5-8.1 [facility] HospitalQerqemeMKSJMLXXRM8973-01-49 02:01:00 Test Item Value Reference Range Interpretation Comments Basophils (test code = 1.0 See_Comment [Aut omated message] The Basophils) system which ge nerated this result tra nsmitted reference range : <=1.0. The reference r kat was not used to int erpret this result as normal/abnormal . [facility] HospitalFeizncsNBNILXEMQF4793-96-82 02:01:00 Test Item Value Reference Range Interpretation Comments Monocytes # (test code 0.7 See_Comment [Aut omated message] The = Monocytes #) system which generated this result tra nsmitted reference range : <=0.8. The reference r kat was not used to int erpret this result as normal/abnormal . [facility] HospitalWyhcicaFFDBWWQDEU3481-08-55 02:01:00 Test Item Value Reference Range Interpretation Comments Lymphocytes (test code = Lymphocytes) 35.1 20.0-40.0 [facility] HospitalWcieyavCEQJRUEKJU3519-94-83 02:01:00 Test Item Value Reference Range Interpretation Comments Lymphocytes # (test code = Lymphocytes 3.5 1.0-5.5 #) [facility] HospitalMqrwzhvHOWCYQFQKX2777-69-01 02:01:00 Test Item Value Reference Range Interpretation Comments Monocytes (test code = Monocytes) 6.7 2.0-12.0 [facility] HospitalYqqnfjmRQASRCTHFU0909-16-54 02:01:00 Test Item Value Reference Range Interpretation Comments Segs (test code = Segs) 54.8 45.0-75.0 [facility] HospitalBhhoahlYOKJOCQKBV7511-66-23 02:01:00 Test Item Value Reference Range Interpretation Comments Eosinophils (test code = 2.4 See_Comment [A utomated message] The Eosinophils) system which ge nerated this result tra nsmitted reference range : <=4.0. The reference r kat was not used to int erpret this result as normal/abnormal . [facility] HospitalPvwjcgbFYPVTTVJYZ3172-80-13 02:01:00 Test Item Value Reference Range Interpretation Comments Basophils # (test code 0.1 See_Comment [Aut omated message] The = Basophils #) system which generated this result tra nsmitted reference range : <=0.2. The reference r kat was not used to int erpret this result as normal/abnormal . [facility] HospitalVqnpfuhSEERNPEJUB9205-15-92 02:01:00 Test Item Value Reference Range Interpretation Comments Microcyte (test code = 1+ *ABN*(09/17/15 Microcyte) 8:01 PM) [facility] HospitalXrrswduPTEWBITNWD1411-32-50 02:01:00 Test Item Value Reference Range Interpretation Comments Eosinophils # (test code 0.2 See_Comment [A utomated message] The = Eosinophils #) system [email or web address] h generated this result tra nsmitted reference range : <=0.5. The reference r kat was not used to int erpret this result as normal/abnormal . [facility] HospitalJeugxpkLYFJBFLWKY9854-09-96 02:01:00 Test Item Value Reference Range Interpretation Comments MPV (test code = MPV) 10.0 7.4-10.4 [facility] HospitalOuemsujFIGOULKAFM7433-81-99 02:01:00 Test Item Value Reference Range Interpretation Comments RDW (test code = RDW) 16.9 11.5-14.5 [facility] HospitalRgzjzabBXVSJJJZJM4175-77-43 02:01:00 Test Item Value Reference Range Interpretation Comments Platelet (test code = Platelet) 208 133-450 [facility] HospitalUpokylkCKFAAUSZPF5749-09-88 02:01:00 Test Item Value Reference Range Interpretation Comments MCV (test code = MCV) 77.9 80.0-98.0 [facility]EglyriiPIVIZMIGPN9852-99-59 02:01:00 Test Item Value Reference Range Interpretation Comments MCH (test code = MCH) 24.2 pg 27.0-31.0 [facility] HospitalRdkjfbnLNFCPOMPLY9574-60-83 02:01:00 Test Item Value Reference Range Interpretation Comments MCHC (test code = MCHC) 31.1 32.0-36.0 [facility] HospitalLeyvdnjAYJRVLPCZN3504-21-79 02:01:00 Test Item Value Reference Range Interpretation Comments Hgb (test code = Hgb) 13.3 12.0-16.0 [facility] HospitalEfzflymSIJMDEWHKH4289-71-93 02:01:00 Test Item Value Reference Range Interpretation Comments Hct (test code = Hct) 42.6 36.0-48.0 [facility] HospitalVjddhjbMVMMZGKUKA7558-26-43 02:01:00 Test Item Value Reference Range Interpretation Comments WBC (test code = WBC) 9.9 3.7-10.4 [facility] HospitalWkrooeaEAPZIJLTEZ3837-70-29 02:01:00 Test Item Value Reference Range Interpretation Comments RBC (test code = RBC) 5.47 4.20-5.40 [facility] DFQJX3425-06-84 02:01:00 Test Item Value Reference Range Interpretation Comments Lipase Lvl (test code = Lipase Lvl) 196 73-393 [facility]2016-01-20 02:01:00 Test Item Value Reference Range Interpretation Comments Amylase Lvl (test code = Amylase Lvl) 33 25-115 [facility]CyxmdcmAWKULGARGEMB4897-14-39 02:01:00 Test Item Value Reference Range Interpretation Comments AGAP (test code = AGAP) 10.7 10.0-20.0 [facility] SystemKcirwhaKFNTTBNETXLC4164-76-87 02:01:00 Test Item Value Reference Range Interpretation Comments A/G Ratio (test code = A/G Ratio) 1.2 0.7-1.6 [facility] SystemRcotxiwNCRQCGEMALEY1842-64-12 02:01:00 Test Item Value Reference Range Interpretation Comments Globulin (test code = Globulin) 3.1 2.0-4.0 [facility] SystemSvafiyvARWTIPUGMVDZ3056-81-00 02:01:00 Test Item Value Reference Range Interpretation Comments B/C Ratio (test code = B/C Ratio) 13 6-25 [facility] SystemBvclmlyFARGSKFZBUNV2455-03-89 02:01:00 Test Item Value Reference Range Interpretation Comments Total Protein (test code = Total 6.9 6.4-8.4 Protein) [facility] SystemHcmlsapLYYYCXBEDICR8068-88-02 02:01:00 Test Item Value Reference Range Interpretation Comments Calcium Lvl (test code = Calcium Lvl) 9.0 8.5-10.5 [facility] SystemKfjnishYDPKHITQZVDO2272-21-47 02:01:00 Test Item Value Reference Range Interpretation Comments CO2 (test code = CO2) 26 24-32 [facility]XxvsfvbPHAFNVVWUPVK1096-66-93 02:01:00 Test Item Value Reference Range Interpretation Comments eGFR (test code = eGFR) 110 [facility] SystemMvteizuNAKLLJSVEPZI0100-47-36 02:01:00 Test Item Value Reference Range Interpretation Comments Bili Total (test code = Bili Total) 0.3 0.2-1.3 [facility] SystemRwljlhrRKVGCJCVRGMD3147-98-02 02:01:00 Test Item Value Reference Range Interpretation Comments Alk Phos (test code = Alk Phos) 84 39-136 [facility] SystemWxrutfcHNJZYOTBLVSG8992-48-61 02:01:00 Test Item Value Reference Range Interpretation Comments AST (test code = AST) 17 See_Comment [Auto mated message] The system which ge nerated this result transmit arvind reference range : <=37. The reference range was not used to interpr et this result as mario l/abnormal. [facility] SystemFgwxmziFNXIPWLWJYFB3081-95-99 02:01:00 Test Item Value Reference Range Interpretation Comments ALT (test code = ALT) 42 See_Comment [Auto mated message] The system which ge nerated this result transmit arvind reference range : <=65. The reference range was not used to interpr et this result as mario l/abnormal. [facility] SystemUygphkaCZQOHKOGZBZJ4123-26-60 02:01:00 Test Item Value Reference Range Interpretation Comments Albumin Lvl (test code = Albumin Lvl) 3.8 3.5-5.0 [facility]EhhdqhxZWPUEEJTYWZF4822-61-13 02:01:00 Test Item Value Reference Range Interpretation Comments Sodium Lvl (test code = Sodium Lvl) 139 135-145 [facility] SystemPtqllszYYHKRAWCFIPT6739-75-20 02:01:00 Test Item Value Reference Range Interpretation Comments Chloride Lvl (test code = Chloride Lvl) 106 95-109 [facility] SystemVoknymxSHSAZDGMFXFN3807-62-27 02:01:00 Test Item Value Reference Range Interpretation Comments Potassium Lvl (test code = Potassium 3.7 3.5-5.1 Lvl) [facility] SystemUdvyovdPMLHLGFYMLXC0726-98-23 02:01:00 Test Item Value Reference Range Interpretation Comments BUN (test code = BUN) 10 7-22 [facility] SystemJlbzxdqQBRTWJBTTOPV3099-20-38 02:01:00 Test Item Value Reference Range Interpretation Comments Glucose Lvl (test code = Glucose Lvl) 88 70-99 [facility] SystemZsbxiltBKUVNAXDZHSK0031-31-60 02:01:00 Test Item Value Reference Range Interpretation Comments Creatinine Lvl (test code = Creatinine 0.76 0.50-1.40 Lvl) [facility]UjvewfsOCEGKUCECV2696-00-38 02:01:00 Test Item Value Reference Range Interpretation Comments Segs-Bands # (test code = Segs-Bands #) 5.4 1.5-8.1 [facility] HospitalYfhzltnNWGIBHKOTJ3167-20-16 02:01:00 Test Item Value Reference Range Interpretation Comments Basophils (test code = 1.0 See_Comment [Aut omated message] The Basophils) system which ge nerated this result tra nsmitted reference range : <=1.0. The reference r kat was not used to int erpret this result as normal/abnormal . [facility] HospitalZnwrvvgPIQMEPHUHP6070-54-76 02:01:00 Test Item Value Reference Range Interpretation Comments Monocytes # (test code 0.7 See_Comment [Aut omated message] The = Monocytes #) system which generated this result tra nsmitted reference range : <=0.8. The reference r kat was not used to int erpret this result as normal/abnormal . [facility] HospitalFbiaoodSPMVUFDDJN7339-68-42 02:01:00 Test Item Value Reference Range Interpretation Comments Lymphocytes (test code = Lymphocytes) 35.1 20.0-40.0 [facility] HospitalOwgwevrSWTGTQQVLQ9717-96-47 02:01:00 Test Item Value Reference Range Interpretation Comments Lymphocytes # (test code = Lymphocytes 3.5 1.0-5.5 #) [facility]JsjacbqOQHWYZRGPB5229-46-70 02:01:00 Test Item Value Reference Range Interpretation Comments Monocytes (test code = Monocytes) 6.7 2.0-12.0 [facility] HospitalNmppxiyACMEEDVBZN5224-13-03 02:01:00 Test Item Value Reference Range Interpretation Comments Segs (test code = Segs) 54.8 45.0-75.0 [facility] HospitalLnaffokWFHSKNQHLO7286-12-43 02:01:00 Test Item Value Reference Range Interpretation Comments Eosinophils (test code = 2.4 See_Comment [A utomated message] The Eosinophils) system which ge nerated this result tra nsmitted reference range : <=4.0. The reference r kat was not used to int erpret this result as normal/abnormal . [facility] HospitalLtdhqzjENEUMIWVNH2503-34-87 02:01:00 Test Item Value Reference Range Interpretation Comments Basophils # (test code 0.1 See_Comment [Aut omated message] The = Basophils #) system which generated this result tra nsmitted reference range : <=0.2. The reference r kat was not used to int erpret this result as normal/abnormal . [facility] HospitalQrogxceMVQBRDYAWH2728-91-14 02:01:00 Test Item Value Reference Range Interpretation Comments Microcyte (test code = 1+ *ABN*(09/17/15 Microcyte) 8:01 PM) [facility] HospitalKusxzjqTXQCIQGOLJ0646-09-63 02:01:00 Test Item Value Reference Range Interpretation Comments Eosinophils # (test code 0.2 See_Comment [A utomated message] The = Eosinophils #) system whic h generated this result tra nsmitted reference range : <=0.5. The reference r kat was not used to int erpret this result as normal/abnormal . [facility] FHFSC2968-40-52 02:01:00 Test Item Value Reference Range Interpretation Comments Lipase Lvl (test code = Lipase Lvl) 196 73-393 [facility]2016-01-20 02:01:00 Test Item Value Reference Range Interpretation Comments Amylase Lvl (test code = Amylase Lvl) 33 25-115 [facility]OmqvrjySUANDYCTDHZZ3071-03-33 02:01:00 Test Item Value Reference Range Interpretation Comments AGAP (test code = AGAP) 10.7 10.0-20.0 [facility] SystemMuufvwhUAQFANNIDWQY1049-81-51 02:01:00 Test Item Value Reference Range Interpretation Comments A/G Ratio (test code = A/G Ratio) 1.2 0.7-1.6 [facility] SystemAondrmcEHJBCYYASRRR8917-14-67 02:01:00 Test Item Value Reference Range Interpretation Comments Globulin (test code = Globulin) 3.1 2.0-4.0 [facility] SystemEawshmmNBVUOJXJRSBG3996-36-30 02:01:00 Test Item Value Reference Range Interpretation Comments B/C Ratio (test code = B/C Ratio) 13 6-25 [facility] SystemExavdeeAUKPNFTRNNRP2901-90-82 02:01:00 Test Item Value Reference Range Interpretation Comments Total Protein (test code = Total 6.9 6.4-8.4 Protein) [facility] SystemMpbscikKKYWORPERWKN8764-54-92 02:01:00 Test Item Value Reference Range Interpretation Comments Calcium Lvl (test code = Calcium Lvl) 9.0 8.5-10.5 [facility] HospitalFwtpovoPXIUYULENL6552-12-43 02:01:00 Test Item Value Reference Range Interpretation Comments MPV (test code = MPV) 10.0 7.4-10.4 [facility] SystemBpoiuhkDFSYINQRVDLJ0547-93-47 02:01:00 Test Item Value Reference Range Interpretation Comments CO2 (test code = CO2) 26 24-32 [facility] SystemGrybwaiFSTIRDYSPVFG9618-72-54 02:01:00 Test Item Value Reference Range Interpretation Comments eGFR (test code = eGFR) 110 [facility] SystemRrimlsbXCJJAEHWWRQZ9932-26-99 02:01:00 Test Item Value Reference Range Interpretation Comments Bili Total (test code = Bili Total) 0.3 0.2-1.3 [facility] SystemEuvocsnMDORMENSJHFZ8448-90-95 02:01:00 Test Item Value Reference Range Interpretation Comments Alk Phos (test code = Alk Phos) 84 39-136 [facility] SystemYbcyuqdOYSJAIKSBKDL1054-82-02 02:01:00 Test Item Value Reference Range Interpretation Comments AST (test code = AST) 17 See_Comment [Auto mated message] The system which ge nerated this result transmit arvind reference range : <=37. The reference range was not used to interpr et this result as mario l/abnormal. [facility] SystemAezbgtzSVPJTYZYCELV7209-34-64 02:01:00 Test Item Value Reference Range Interpretation Comments ALT (test code = ALT) 42 See_Comment [Auto mated message] The system which ge nerated this result transmit arvind reference range : <=65. The reference range was not used to interpr et this result as mario l/abnormal. [facility] SystemOcevxuoABVSKOPCBHDF7919-26-97 02:01:00 Test Item Value Reference Range Interpretation Comments Albumin Lvl (test code = Albumin Lvl) 3.8 3.5-5.0 [facility] SystemZlhinbgXJXWNBOELTMK6650-40-08 02:01:00 Test Item Value Reference Range Interpretation Comments Sodium Lvl (test code = Sodium Lvl) 139 135-145 [facility]WqgvrggYBYYIFKPUOGV8051-66-98 02:01:00 Test Item Value Reference Range Interpretation Comments Chloride Lvl (test code = Chloride Lvl) 106 95-109 [facility] SystemVezzqgbJNXVJASZOVPP5240-23-71 02:01:00 Test Item Value Reference Range Interpretation Comments Potassium Lvl (test code = Potassium 3.7 3.5-5.1 Lvl) [facility] CenterFtnlyusOMYXYAPOKX2652-13-38 02:01:00 Test Item Value Reference Range Interpretation Comments RDW (test code = RDW) 16.9 11.5-14.5 [facility]UoqpqquKYTYSUNVJDUW8154-26-38 02:01:00 Test Item Value Reference Range Interpretation Comments BUN (test code = BUN) 10 7-22 [facility] SystemYlkcgrdSGLOTNSUXEEW6583-14-29 02:01:00 Test Item Value Reference Range Interpretation Comments Glucose Lvl (test code = Glucose Lvl) 88 70-99 [facility] SystemThzzomoYAOCVXSDUUFX9483-28-75 02:01:00 Test Item Value Reference Range Interpretation Comments Creatinine Lvl (test code = Creatinine 0.76 0.50-1.40 Lvl) [facility] HospitalRxkngrvGTPMXSXCEB3163-07-34 02:01:00 Test Item Value Reference Range Interpretation Comments Segs-Bands # (test code = Segs-Bands #) 5.4 1.5-8.1 [facility] HospitalPysukndGNRAQCGSJK3893-21-21 02:01:00 Test Item Value Reference Range Interpretation Comments Basophils (test code = 1.0 See_Comment [Aut omated message] The Basophils) system which ge nerated this result tra nsmitted reference range : <=1.0. The reference r kat was not used to int erpret this result as normal/abnormal . [facility] HospitalIfxhwjkIEIKWKYKLL9601-20-67 02:01:00 Test Item Value Reference Range Interpretation Comments Monocytes # (test code 0.7 See_Comment [Aut omated message] The = Monocytes #) system which generated this result tra nsmitted reference range : <=0.8. The reference r kat was not used to int erpret this result as normal/abnormal . [facility] HospitalRencioiKTODOWHEYO1009-53-53 02:01:00 Test Item Value Reference Range Interpretation Comments Lymphocytes (test code = Lymphocytes) 35.1 20.0-40.0 [facility] HospitalDwcpvmtLACGKVFFBP1591-56-61 02:01:00 Test Item Value Reference Range Interpretation Comments Lymphocytes # (test code = Lymphocytes 3.5 1.0-5.5 #) [facility] HospitalBykrvsiDRBHQBREMJ0087-60-27 02:01:00 Test Item Value Reference Range Interpretation Comments Monocytes (test code = Monocytes) 6.7 2.0-12.0 [facility] HospitalVewkmkoETECFELUAC0066-28-79 02:01:00 Test Item Value Reference Range Interpretation Comments Segs (test code = Segs) 54.8 45.0-75.0 [facility] HospitalNabwjoeJJRPJTYVFG2177-16-86 02:01:00 Test Item Value Reference Range Interpretation Comments Platelet (test code = Platelet) 208 133-450 [facility] HospitalIccgmkoGVSJRSCBEN0839-49-90 02:01:00 Test Item Value Reference Range Interpretation Comments Eosinophils (test code = 2.4 See_Comment [A utomated message] The Eosinophils) system which ge nerated this result tra nsmitted reference range : <=4.0. The reference r kat was not used to int erpret this result as normal/abnormal . [facility] HospitalUusavbmYXBEMRSMHD2192-37-33 02:01:00 Test Item Value Reference Range Interpretation Comments Basophils # (test code 0.1 See_Comment [Aut omated message] The = Basophils #) system which generated this result tra nsmitted reference range : <=0.2. The reference r kat was not used to int erpret this result as normal/abnormal . [facility] HospitalDitminvTXHZKAAPKT1682-12-24 02:01:00 Test Item Value Reference Range Interpretation Comments Microcyte (test code = 1+ *ABN*(09/17/15 Microcyte) 8:01 PM) [facility] HospitalElppdliNUWGRFZTUD8121-00-97 02:01:00 Test Item Value Reference Range Interpretation Comments Eosinophils # (test code 0.2 See_Comment [A utomated message] The = Eosinophils #) system whic h generated this result tra nsmitted reference range : <=0.5. The reference r kat was not used to int erpret this result as normal/abnormal . [facility] HospitalJmecskzNKISPNYAMR5841-37-41 02:01:00 Test Item Value Reference Range Interpretation Comments MPV (test code = MPV) 10.0 7.4-10.4 [facility] HospitalMyhwzcqIXQLFQZGDE0802-06-61 02:01:00 Test Item Value Reference Range Interpretation Comments RDW (test code = RDW) 16.9 11.5-14.5 [facility] HospitalTkhydnjJMLLHYZLKC9536-66-95 02:01:00 Test Item Value Reference Range Interpretation Comments Platelet (test code = Platelet) 208 133-450 [facility] HospitalXhsarwvNYRZPDQFPY8174-03-85 02:01:00 Test Item Value Reference Range Interpretation Comments MCV (test code = MCV) 77.9 80.0-98.0 [facility] HospitalBzuwcngJIVUZKVDLN4825-58-75 02:01:00 Test Item Value Reference Range Interpretation Comments MCH (test code = MCH) 24.2 pg 27.0-31.0 [facility] HospitalTnzlkkaBKLOUPNXQD6836-22-00 02:01:00 Test Item Value Reference Range Interpretation Comments MCHC (test code = MCHC) 31.1 32.0-36.0 [facility] HospitalRhuypjvQFNVKOWZSM0624-29-66 02:01:00 Test Item Value Reference Range Interpretation Comments MCV (test code = MCV) 77.9 80.0-98.0 [facility] HospitalBkgxbvbNGRSWPMWXR7760-34-21 02:01:00 Test Item Value Reference Range Interpretation Comments Hgb (test code = Hgb) 13.3 12.0-16.0 [facility] HospitalSnneyieZFMDGOXDMT5891-87-28 02:01:00 Test Item Value Reference Range Interpretation Comments Hct (test code = Hct) 42.6 36.0-48.0 [facility] HospitalJcedadbXLRDPTFWYJ5116-40-30 02:01:00 Test Item Value Reference Range Interpretation Comments WBC (test code = WBC) 9.9 3.7-10.4 [facility] HospitalFrmwmjeBDFDHAPENG1716-54-74 02:01:00 Test Item Value Reference Range Interpretation Comments RBC (test code = RBC) 5.47 4.20-5.40 [facility] HospitalCivzrnoCPJIZADPLA4013-24-56 02:01:00 Test Item Value Reference Range Interpretation Comments MCH (test code = MCH) 24.2 pg 27.0-31.0 [facility] HospitalIcumcsrCLYDOMQLQE6070-45-14 02:01:00 Test Item Value Reference Range Interpretation Comments MCHC (test code = MCHC) 31.1 32.0-36.0 [facility] HospitalVrsxsfiPTCDBDLEVZ5896-00-59 02:01:00 Test Item Value Reference Range Interpretation Comments Hgb (test code = Hgb) 13.3 12.0-16.0 [facility] HospitalQpbypboOXSYMWNMBR4962-03-74 02:01:00 Test Item Value Reference Range Interpretation Comments Hct (test code = Hct) 42.6 36.0-48.0 [facility] HospitalZwnaidhOYYLQAWUFG2219-18-76 02:01:00 Test Item Value Reference Range Interpretation Comments WBC (test code = WBC) 9.9 3.7-10.4 [facility] HospitalZdnbqhpFUHQGILZCN3835-02-80 02:01:00 Test Item Value Reference Range Interpretation Comments RBC (test code = RBC) 5.47 4.20-5.40 [facility] NFRUI9339-52-86 02:01:00 Test Item Value Reference Range Interpretation Comments Lipase Lvl (test code = Lipase Lvl) 196 73-[address] [facility] DIYML1698-38-79 02:01:00 Test Item Value Reference Range Interpretation Comments Amylase Lvl (test code = Amylase Lvl) 33 25-115 [facility]ApezbgdLPHAJWAFKRGY2456-10-43 02:01:00 Test Item Value Reference Range Interpretation Comments AGAP (test code = AGAP) 10.7 10.0-20.0 [facility] SystemYppzaisXZSFQERLRANS5206-20-32 02:01:00 Test Item Value Reference Range Interpretation Comments A/G Ratio (test code = A/G Ratio) 1.2 0.7-1.6 [facility] SystemMtiblxhGKLDPOORFVOO4407-88-01 02:01:00 Test Item Value Reference Range Interpretation Comments Globulin (test code = Globulin) 3.1 2.0-4.0 [facility] SystemXvlfuluGIUAFNCZGDSU2669-71-30 02:01:00 Test Item Value Reference Range Interpretation Comments B/C Ratio (test code = B/C Ratio) 13 6-25 [facility] SystemMcqgnegQTXNYYBYBUVB5471-48-91 02:01:00 Test Item Value Reference Range Interpretation Comments Total Protein (test code = Total 6.9 6.4-8.4 Protein) [facility] SystemKgcavaxVCFRGYGISDFD0846-09-14 02:01:00 Test Item Value Reference Range Interpretation Comments Calcium Lvl (test code = Calcium Lvl) 9.0 8.5-10.5 [facility] SystemRevzbtzHDLGXURRLPHW6460-50-92 02:01:00 Test Item Value Reference Range Interpretation Comments CO2 (test code = CO2) 26 24-32 [facility] SystemKnvhnvfMZPYCXZDSVZE0136-51-33 02:01:00 Test Item Value Reference Range Interpretation Comments eGFR (test code = eGFR) 110 [facility] SystemTcmiddkIGHKFCPQRFIF2274-67-53 02:01:00 Test Item Value Reference Range Interpretation Comments Bili Total (test code = Bili Total) 0.3 0.2-1.3 [facility] SystemZznydkvTNZWDNLPREDU3797-54-32 02:01:00 Test Item Value Reference Range Interpretation Comments Alk Phos (test code = Alk Phos) 84 39-136 [facility] SystemWtezmwqHVXJUJKSRWWB2218-93-44 02:01:00 Test Item Value Reference Range Interpretation Comments AST (test code = AST) 17 See_Comment [Auto mated message] The system which ge nerated this result transmit arvind reference range : <=37. The reference range was not used to interpr et this result as mario l/abnormal. [facility] SystemBlzpuwoRAVKEMZMVDHT5003-31-77 02:01:00 Test Item Value Reference Range Interpretation Comments ALT (test code = ALT) 42 See_Comment [Auto mated message] The system which ge nerated this result transmit arvind reference range : <=65. The reference range was not used to interpr et this result as mario l/abnormal. [facility] SystemWaoxawiGZQVYJSCMCDX1850-98-87 02:01:00 Test Item Value Reference Range Interpretation Comments Albumin Lvl (test code = Albumin Lvl) 3.8 3.5-5.0 [facility]XwcejfaVSQHCJMAPQSM0779-89-86 02:01:00 Test Item Value Reference Range Interpretation Comments Sodium Lvl (test code = Sodium Lvl) 139 135-145 [facility] SystemVivosymOAZOBFGQTNJG9506-83-21 02:01:00 Test Item Value Reference Range Interpretation Comments Chloride Lvl (test code = Chloride Lvl) 106 95-109 [facility] SystemCslkglmUTDPWXVQNAJI1887-54-54 02:01:00 Test Item Value Reference Range Interpretation Comments Potassium Lvl (test code = Potassium 3.7 3.5-5.1 Lvl) [facility] SystemGjjcmkgXKMUCYUFEFNT9378-71-36 02:01:00 Test Item Value Reference Range Interpretation Comments BUN (test code = BUN) 10 7-22 [facility] SystemSzdudhpVTLIKELLTZOL5476-88-29 02:01:00 Test Item Value Reference Range Interpretation Comments Glucose Lvl (test code = Glucose Lvl) 88 70-99 [facility] SystemEcnzodbMWROANUIIMQW7576-44-80 02:01:00 Test Item Value Reference Range Interpretation Comments Creatinine Lvl (test code = Creatinine 0.76 0.50-1.40 Lvl) [facility] HospitalBevsomaVHETPNOVBB2459-56-21 02:01:00 Test Item Value Reference Range Interpretation Comments Segs-Bands # (test code = Segs-Bands #) 5.4 1.5-8.1 [facility] HospitalAolffpsLUSKSQFNNC4870-47-45 02:01:00 Test Item Value Reference Range Interpretation Comments Basophils (test code = 1.0 See_Comment [Aut omated message] The Basophils) system which ge nerated this result tra nsmitted reference range : <=1.0. The reference r kat was not used to int erpret this result as normal/abnormal . [facility] HospitalVkujhbeWVKAKXIWBP3126-67-16 02:01:00 Test Item Value Reference Range Interpretation Comments Monocytes # (test code 0.7 See_Comment [Aut omated message] The = Monocytes #) system which generated this result tra nsmitted reference range : <=0.8. The reference r kat was not used to int erpret this result as normal/abnormal . [facility] HospitalZvopwllAIEMSDEQSG8683-60-40 02:01:00 Test Item Value Reference Range Interpretation Comments Lymphocytes (test code = Lymphocytes) 35.1 20.0-40.0 [facility] HospitalRssvtizHODEHRXYQY4090-41-07 02:01:00 Test Item Value Reference Range Interpretation Comments Lymphocytes # (test code = Lymphocytes 3.5 1.0-5.5 #) [facility] HospitalYfntzemLYMPQVDEGL6577-17-70 02:01:00 Test Item Value Reference Range Interpretation Comments Monocytes (test code = Monocytes) 6.7 2.0-12.0 [facility] HospitalHgsouuqPNTDYXHUSF1811-02-83 02:01:00 Test Item Value Reference Range Interpretation Comments Segs (test code = Segs) 54.8 45.0-75.0 [facility] HospitalCzrglqpUKWOBDOQLZ1512-69-11 02:01:00 Test Item Value Reference Range Interpretation Comments Eosinophils (test code = 2.4 See_Comment [A utomated message] The Eosinophils) system which ge nerated this result tra nsmitted reference range : <=4.0. The reference r kat was not used to int erpret this result as normal/abnormal . [facility] HospitalUetnepiIYQBMXAYST8988-09-47 02:01:00 Test Item Value Reference Range Interpretation Comments Basophils # (test code 0.1 See_Comment [Aut omated message] The = Basophils #) system which generated this result tra nsmitted reference range : <=0.2. The reference r kat was not used to int erpret this result as normal/abnormal . [facility] HospitalWgowiqlHWSSOGHKVU3248-21-48 02:01:00 Test Item Value Reference Range Interpretation Comments Microcyte (test code = 1+ *ABN*(09/17/15 Microcyte) 8:01 PM) [facility] HospitalIvtqjqyICACATMSFC7187-28-05 02:01:00 Test Item Value Reference Range Interpretation Comments Eosinophils # (test code 0.2 See_Comment [A utomated message] The = Eosinophils #) system [place] Self Representation Document Preparationic h generated this result tra nsmitted reference range : <=0.5. The reference r kat was not used to int erpret this result as normal/abnormal . [facility] [facility]SyldldrGATDIWDOII3756-71-99 [facility]:01:00 Test Item Value Reference Range Interpretation Comments MPV (test code = MPV) 10.0 7.4-10.4 [facility] HospitalAnuosifFVCRUZSBBK2352-92-30 02:01:00 Test Item Value Reference Range Interpretation Comments RDW (test code = RDW) 16.9 11.5-14.5 [facility] HospitalAeplvvaLGZMGTMZCD2168-86-85 02:01:00 Test Item Value Reference Range Interpretation Comments Platelet (test code = Platelet) 208 133-450 [facility] HospitalZlnoohgMMBCCSGHJO8401-48-79 02:01:00 Test Item Value Reference Range Interpretation Comments MCV (test code = MCV) 77.9 80.0-98.0 [facility] HospitalZgzcmdsYSDBEHLABN7612-73-97 02:01:00 Test Item Value Reference Range Interpretation Comments MCH (test code = MCH) 24.2 pg 27.0-31.0 [facility] HospitalMuidtnlASWATALXZV3016-37-77 02:01:00 Test Item Value Reference Range Interpretation Comments MCHC (test code = MCHC) 31.1 32.0-36.0 [facility] HospitalEdyeptpMQRMCUKWSE2165-40-46 02:01:00 Test Item Value Reference Range Interpretation Comments Hgb (test code = Hgb) 13.3 12.0-16.0 [facility] HospitalBneacfcGRCCLDJFMS7868-09-98 02:01:00 Test Item Value Reference Range Interpretation Comments Hct (test code = Hct) 42.6 36.0-48.0 [facility] HospitalLefksabGZRVHBUIAV5768-72-16 02:01:00 Test Item Value Reference Range Interpretation Comments WBC (test code = WBC) 9.9 3.7-10.4 [facility] HospitalRmpjwilPPXBHRPQSE9515-08-29 02:01:00 Test Item Value Reference Range Interpretation Comments RBC (test code = RBC) 5.47 4.20-5.[address] [facility] EIUAJ8651-12-40 02:01:00 Test Item Value Reference Range Interpretation Comments Lipase Lvl (test code = Lipase Lvl) 196 73-393 [facility]2016-01-20 02:01:00 Test Item Value Reference Range Interpretation Comments Amylase Lvl (test code = Amylase Lvl) 33 25-115 [facility]BxflzgoSTWTTEUGEQTA4368-05-94 02:01:00 Test Item Value Reference Range Interpretation Comments AGAP (test code = AGAP) 10.7 10.0-20.0 [facility] SystemWassycoBCKOGQIUZNXW9595-23-95 02:01:00 Test Item Value Reference Range Interpretation Comments A/G Ratio (test code = A/G Ratio) 1.2 0.7-1.6 [facility] SystemEbebiagKJZBQVKELGUS4780-15-85 02:01:00 Test Item Value Reference Range Interpretation Comments Globulin (test code = Globulin) 3.1 2.0-4.0 [facility] SystemCjidijgRQCOGXSNWKXO6700-04-00 02:01:00 Test Item Value Reference Range Interpretation Comments B/C Ratio (test code = B/C Ratio) 13 6-25 [facility] SystemYnfdkkiANUPPOPQWNUF6408-79-59 02:01:00 Test Item Value Reference Range Interpretation Comments Total Protein (test code = Total 6.9 6.4-8.4 Protein) [facility] SystemXeqnizjPEZZKVHJJMEK5515-93-70 02:01:00 Test Item Value Reference Range Interpretation Comments Calcium Lvl (test code = Calcium Lvl) 9.0 8.5-10.5 [facility] SystemJxzrdcfFYCYTWZBHKNQ4044-90-12 02:01:00 Test Item Value Reference Range Interpretation Comments CO2 (test code = CO2) 26 24-32 [facility] SystemWnlzdscUZUCGKPKKBHM4093-17-35 02:01:00 Test Item Value Reference Range Interpretation Comments eGFR (test code = eGFR) 110 [facility] SystemCfdgaujGUKZBYBIFDXD7569-70-97 02:01:00 Test Item Value Reference Range Interpretation Comments Bili Total (test code = Bili Total) 0.3 0.2-1.3 [facility] SystemGnkpzvfYTTRMZVAYHTA5786-01-62 02:01:00 Test Item Value Reference Range Interpretation Comments Alk Phos (test code = Alk Phos) 84 39-136 [facility] SystemSykuhzyPPCDGURYIYVC6316-02-96 02:01:00 Test Item Value Reference Range Interpretation Comments AST (test code = AST) 17 See_Comment [Auto mated message] The system which ge nerated this result transmit arvind reference range : <=37. The reference range was not used to interpr et this result as mario l/abnormal. [facility] SystemBvauoufAQVXPZANQBIX2526-99-42 02:01:00 Test Item Value Reference Range Interpretation Comments ALT (test code = ALT) 42 See_Comment [Auto mated message] The system which ge nerated this result transmit arvind reference range : <=65. The reference range was not used to interpr et this result as mario l/abnormal. [facility] SystemSwrhwvrEXETBQBODMMJ7050-20-90 02:01:00 Test Item Value Reference Range Interpretation Comments Albumin Lvl (test code = Albumin Lvl) 3.8 3.5-5.0 [facility] SystemLcgvguzXJTPASJQZGGM6678-57-26 02:01:00 Test Item Value Reference Range Interpretation Comments Sodium Lvl (test code = Sodium Lvl) 139 135-145 [facility] SystemOiyeowcFKOCERIPLPDD1189-23-24 02:01:00 Test Item Value Reference Range Interpretation Comments Chloride Lvl (test code = Chloride Lvl) 106 95-109 [facility] SystemSndlkivNMTFXWRFAOSJ3817-95-59 02:01:00 Test Item Value Reference Range Interpretation Comments Potassium Lvl (test code = Potassium 3.7 3.5-5.1 Lvl) [facility] SystemJltrciuWNIAKENIBRPV8058-78-67 02:01:00 Test Item Value Reference Range Interpretation Comments BUN (test code = BUN) 10 7-22 [facility] SystemGcnlrofJZOCWZUHZAXF5707-54-55 02:01:00 Test Item Value Reference Range Interpretation Comments Glucose Lvl (test code = Glucose Lvl) 88 70-99 [facility] SystemPsnnrbxTTDBLKIOUKRH3919-44-05 02:01:00 Test Item Value Reference Range Interpretation Comments Creatinine Lvl (test code = Creatinine 0.76 0.50-1.40 Lvl) [facility]UmhexuwSASHNZDKMZ2240-35-79 02:01:00 Test Item Value Reference Range Interpretation Comments Segs-Bands # (test code = Segs-Bands #) 5.4 1.5-8.1 [facility] HospitalPksluqsPOWYGOQJFN5890-90-66 02:01:00 Test Item Value Reference Range Interpretation Comments Basophils (test code = 1.0 See_Comment [Aut omated message] The Basophils) system which ge nerated this result tra nsmitted reference range : <=1.0. The reference r kat was not used to int erpret this result as normal/abnormal . [facility] HospitalWghncxkFUFMIHNBBA4879-69-70 02:01:00 Test Item Value Reference Range Interpretation Comments Monocytes # (test code 0.7 See_Comment [Aut omated message] The = Monocytes #) system which generated this result tra nsmitted reference range : <=0.8. The reference r kat was not used to int erpret this result as normal/abnormal . [facility] HospitalLlkoljfINOMEQXDQO0501-17-27 02:01:00 Test Item Value Reference Range Interpretation Comments Lymphocytes (test code = Lymphocytes) 35.1 20.0-40.0 [facility] HospitalBgsamusUAHWJIIURM4004-72-72 02:01:00 Test Item Value Reference Range Interpretation Comments Lymphocytes # (test code = Lymphocytes 3.5 1.0-5.5 #) [facility] HospitalQbirlydJZFCLWBKYK6385-74-94 02:01:00 Test Item Value Reference Range Interpretation Comments Monocytes (test code = Monocytes) 6.7 2.0-12.0 [facility] HospitalBmlytmcPGEADUIMZP5848-56-44 02:01:00 Test Item Value Reference Range Interpretation Comments Segs (test code = Segs) 54.8 45.0-75.0 [facility] HospitalYfjthikHQNBTOWWLB9832-22-70 02:01:00 Test Item Value Reference Range Interpretation Comments Eosinophils (test code = 2.4 See_Comment [A utomated message] The Eosinophils) system which ge nerated this result tra nsmitted reference range : <=4.0. The reference r kat was not used to int erpret this result as normal/abnormal . [facility] HospitalPaltootKWWUUJWRRP0487-03-79 02:01:00 Test Item Value Reference Range Interpretation Comments Basophils # (test code 0.1 See_Comment [Aut omated message] The = Basophils #) system which generated this result tra nsmitted reference range : <=0.2. The reference r kat was not used to int erpret this result as normal/abnormal . [facility] HospitalCyusvgkECRGHRSDBP9489-38-92 02:01:00 Test Item Value Reference Range Interpretation Comments Microcyte (test code = 1+ *ABN*(09/17/15 Microcyte) 8:01 PM) [facility] HospitalQsegcovJHPNTOFTOU1982-56-94 02:01:00 Test Item Value Reference Range Interpretation Comments Eosinophils # (test code 0.2 See_Comment [A utomated message] The = Eosinophils #) system [email or web address] h generated this result tra nsmitted reference range : <=0.5. The reference r kat was not used to int erpret this result as normal/abnormal . [facility] HospitalFcxndilSHQKICCATD9798-25-15 02:01:00 Test Item Value Reference Range Interpretation Comments MPV (test code = MPV) 10.0 7.4-10.4 [facility] HospitalFhnkbthBKXUSYIOKK9830-19-67 02:01:00 Test Item Value Reference Range Interpretation Comments RDW (test code = RDW) 16.9 11.5-14.5 [facility] HospitalGzkiyknQPFFVQZISU4266-75-21 02:01:00 Test Item Value Reference Range Interpretation Comments Platelet (test code = Platelet) 208 133-450 [facility] HospitalDdxsppcYZHTTEFLCN2863-40-48 02:01:00 Test Item Value Reference Range Interpretation Comments MCV (test code = MCV) 77.9 80.0-98.0 [facility] HospitalVnktobcMBUMVKEMTB5767-44-40 02:01:00 Test Item Value Reference Range Interpretation Comments MCH (test code = MCH) 24.2 pg 27.0-31.0 [facility] HospitalYgdrjawMMQMCIUVUL4687-33-86 02:01:00 Test Item Value Reference Range Interpretation Comments MCHC (test code = MCHC) 31.1 32.0-36.0 [facility] HospitalUxhmcclQDXKBOSQMG5171-65-24 02:01:00 Test Item Value Reference Range Interpretation Comments Hgb (test code = Hgb) 13.3 12.0-16.0 [facility] HospitalCbyucvoBRJCJRLIKQ7087-33-87 02:01:00 Test Item Value Reference Range Interpretation Comments Hct (test code = Hct) 42.6 36.0-48.0 [facility] HospitalOvekcckBUKRVRBSKW4978-45-71 02:01:00 Test Item Value Reference Range Interpretation Comments WBC (test code = WBC) 9.9 3.7-10.4 [facility] HospitalKbkyknjTJICFEQVXN8212-74-26 02:01:00 Test Item Value Reference Range Interpretation Comments RBC (test code = RBC) 5.47 4.20-5.40 [facility] TIBMP8976-74-31 02:01:00 Test Item Value Reference Range Interpretation Comments Lipase Lvl (test code = Lipase Lvl) 196 73-393 [facility] NSDFQ3887-38-59 02:01:00 Test Item Value Reference Range Interpretation Comments Amylase Lvl (test code = Amylase Lvl) 33 25-115 [facility]XezdmwnXCULXZCKYYAX8696-56-51 02:01:00 Test Item Value Reference Range Interpretation Comments AGAP (test code = AGAP) 10.7 10.0-20.0 [facility] SystemOhojyyoDYXNKAKYYSFR0437-80-85 02:01:00 Test Item Value Reference Range Interpretation Comments A/G Ratio (test code = A/G Ratio) 1.2 0.7-1.6 [facility] SystemDjgnrsuQPUFGPKBIWMB7190-94-11 02:01:00 Test Item Value Reference Range Interpretation Comments Globulin (test code = Globulin) 3.1 2.0-4.0 [facility] SystemYnysolaDWPBHUBMAIQB5602-48-21 02:01:00 Test Item Value Reference Range Interpretation Comments B/C Ratio (test code = B/C Ratio) 13 6-25 [facility] SystemDreznfgLNJYNIQBXUWA5270-38-08 02:01:00 Test Item Value Reference Range Interpretation Comments Total Protein (test code = Total 6.9 6.4-8.4 Protein) [facility] SystemXbwhhivMLNLGFUIRANZ8442-49-79 02:01:00 Test Item Value Reference Range Interpretation Comments Calcium Lvl (test code = Calcium Lvl) 9.0 8.5-10.5 [facility] SystemNdcfyfyRUPIYDAHPTRM4331-44-04 02:01:00 Test Item Value Reference Range Interpretation Comments CO2 (test code = CO2) 26 24-32 [facility] SystemUarjkyxZAMCVHGVAQGD9216-63-87 02:01:00 Test Item Value Reference Range Interpretation Comments eGFR (test code = eGFR) 110 [facility] SystemGuykzuxCKPPHFMHYFDP2996-12-58 02:01:00 Test Item Value Reference Range Interpretation Comments Bili Total (test code = Bili Total) 0.3 0.2-1.3 [facility] SystemAaidtouBXNWLOARDEMP3586-85-74 02:01:00 Test Item Value Reference Range Interpretation Comments Alk Phos (test code = Alk Phos) 84 39-136 [facility] SystemSfemrjzTHMWNURAQJFT9496-47-26 02:01:00 Test Item Value Reference Range Interpretation Comments AST (test code = AST) 17 See_Comment [Auto mated message] The system which ge nerated this result transmit arvind reference range : <=37. The reference range was not used to interpr et this result as mario l/abnormal. [facility] SystemQuzqjvdRWEPDJRWEVJG7314-75-36 02:01:00 Test Item Value Reference Range Interpretation Comments ALT (test code = ALT) 42 See_Comment [Auto mated message] The system which ge nerated this result transmit arvind reference range : <=65. The reference range was not used to interpr et this result as mario l/abnormal. [facility] SystemAcqpzdtXBHOBJBKUGPG3564-86-83 02:01:00 Test Item Value Reference Range Interpretation Comments Albumin Lvl (test code = Albumin Lvl) 3.8 3.5-5.0 [facility] SystemSnxsrygGTYCUALUGUSH1698-86-72 02:01:00 Test Item Value Reference Range Interpretation Comments Sodium Lvl (test code = Sodium Lvl) 139 135-145 [facility] SystemHwgshsaWTAKOXUZJWBT3855-33-70 02:01:00 Test Item Value Reference Range Interpretation Comments Chloride Lvl (test code = Chloride Lvl) 106 95-109 [facility] SystemTblhnbxRUBHMTXFKADU1273-54-90 02:01:00 Test Item Value Reference Range Interpretation Comments Potassium Lvl (test code = Potassium 3.7 3.5-5.1 Lvl) [facility] SystemNpcozoiUURVBLIUHYOO8554-84-76 02:01:00 Test Item Value Reference Range Interpretation Comments BUN (test code = BUN) 10 7-22 [facility] SystemMjwarzhKPDMNQTTIZLB1516-52-99 02:01:00 Test Item Value Reference Range Interpretation Comments Glucose Lvl (test code = Glucose Lvl) 88 70-99 [facility] SystemKqhvdiaJRQVWOGXXLRS8569-99-07 02:01:00 Test Item Value Reference Range Interpretation Comments Creatinine Lvl (test code = Creatinine 0.76 0.50-1.40 Lvl) [facility] HospitalQstdmedIMBNYWHIHG5161-08-20 02:01:00 Test Item Value Reference Range Interpretation Comments Segs-Bands # (test code = Segs-Bands #) 5.4 1.5-8.1 [facility] HospitalQebzwlfWPRGHQTINU9228-29-06 02:01:00 Test Item Value Reference Range Interpretation Comments Basophils (test code = 1.0 See_Comment [Aut omated message] The Basophils) system which ge nerated this result tra nsmitted reference range : <=1.0. The reference r kat was not used to int erpret this result as normal/abnormal . [facility] HospitalBmbpiygUUTGQSCYUQ5378-66-45 02:01:00 Test Item Value Reference Range Interpretation Comments Monocytes # (test code 0.7 See_Comment [Aut omated message] The = Monocytes #) system which generated this result tra nsmitted reference range : <=0.8. The reference r kat was not used to int erpret this result as normal/abnormal . [facility] HospitalMwhtnvlMMSCESCOIO1489-25-17 02:01:00 Test Item Value Reference Range Interpretation Comments Lymphocytes (test code = Lymphocytes) 35.1 20.0-40.0 [facility] HospitalYvaypfyVJOVHSKLTR8424-43-24 02:01:00 Test Item Value Reference Range Interpretation Comments Lymphocytes # (test code = Lymphocytes 3.5 1.0-5.5 #) [facility] HospitalKyypwsgXZWVGQUPWG3537-25-61 02:01:00 Test Item Value Reference Range Interpretation Comments Monocytes (test code = Monocytes) 6.7 2.0-12.0 [facility] HospitalAkzbcncDWQLKINSPL7926-75-77 02:01:00 Test Item Value Reference Range Interpretation Comments Segs (test code = Segs) 54.8 45.0-75.0 [facility] HospitalMwjijwmBQBNADIJTJ9958-16-06 02:01:00 Test Item Value Reference Range Interpretation Comments Eosinophils (test code = 2.4 See_Comment [A utomated message] The Eosinophils) system which ge nerated this result tra nsmitted reference range : <=4.0. The reference r kat was not used to int erpret this result as normal/abnormal . [facility] HospitalKkqowzmITTVRNRLYO5180-11-93 02:01:00 Test Item Value Reference Range Interpretation Comments Basophils # (test code 0.1 See_Comment [Aut omated message] The = Basophils #) system which generated this result tra nsmitted reference range : <=0.2. The reference r kat was not used to int erpret this result as normal/abnormal . [facility] HospitalVqhhgvuHKQRZNMWIM0329-56-57 02:01:00 Test Item Value Reference Range Interpretation Comments Microcyte (test code = 1+ *ABN*(09/17/15 Microcyte) 8:01 PM) [facility] HospitalWizzlspPEXDHBFJUX9127-86-83 02:01:00 Test Item Value Reference Range Interpretation Comments Eosinophils # (test code 0.2 See_Comment [A utomated message] The = Eosinophils #) system whic h generated this result tra nsmitted reference range : <=0.5. The reference r kat was not used to int erpret this result as normal/abnormal . [facility] HospitalLfeufdsPTIOJUNBNV7926-63-95 02:01:00 Test Item Value Reference Range Interpretation Comments MPV (test code = MPV) 10.0 7.4-10.4 [facility] HospitalMpgjmgiRDGTMSVSRN0704-57-75 02:01:00 Test Item Value Reference Range Interpretation Comments RDW (test code = RDW) 16.9 11.5-14.5 [facility] HospitalGxfnwqlYSTHZRKUOX8224-42-42 02:01:00 Test Item Value Reference Range Interpretation Comments Platelet (test code = Platelet) 208 133-450 [facility] HospitalWxyofemKNZSGJAUGO2412-33-08 02:01:00 Test Item Value Reference Range Interpretation Comments MCV (test code = MCV) 77.9 80.0-98.0 [facility] HospitalEzuxdohLOOBEQQVJV3113-11-19 02:01:00 Test Item Value Reference Range Interpretation Comments MCH (test code = MCH) 24.2 pg 27.0-31.0 [facility] HospitalOhlwieqUVMDNZETBI0255-07-69 02:01:00 Test Item Value Reference Range Interpretation Comments MCHC (test code = MCHC) 31.1 32.0-36.0 [facility] HospitalXulzldgAMRQBDFXTN5190-85-79 02:01:00 Test Item Value Reference Range Interpretation Comments Hgb (test code = Hgb) 13.3 12.0-16.0 [facility] HospitalLkgkudnYBWPXUFEFU6167-80-77 02:01:00 Test Item Value Reference Range Interpretation Comments Hct (test code = Hct) 42.6 36.0-48.0 [facility] HospitalMcemwyuOYLNXXIBKK5647-93-53 02:01:00 Test Item Value Reference Range Interpretation Comments WBC (test code = WBC) 9.9 3.7-10.4 [facility] HospitalQiulvzoJWIKLYHBFG6302-17-01 02:01:00 Test Item Value Reference Range Interpretation Comments RBC (test code = RBC) 5.47 4.20-5.40 [facility]2015-12-28 16:57:00 Test Item Value Reference Range Interpretation Comments eGFR (test code = eGFR) 86 [facility]2015-12-28 16:57:00 Test Item Value Reference Range Interpretation Comments Potassium Lvl (test code = Potassium 3.6 3.5-5.1 Lvl) [facility]2015-12-28 16:57:00 Test Item Value Reference Range Interpretation Comments CO2 (test code = CO2) 27 24-32 [place] 842925-12-28 16:57:00 Test Item Value Reference Range Interpretation Comments Chloride Lvl (test code = Chloride Lvl) 103 95-109 [facility]2015-12-28 16:57:00 Test Item Value Reference Range Interpretation Comments Calcium Lvl (test code = Calcium Lvl) 9.4 8.5-10.5 [facility]2015-12-28 16:57:00 Test Item Value Reference Range Interpretation Comments AST (test code = AST) 16 See_Comment [Auto mated message] The system which ge nerated this result transmit arvind reference range : <=37. The reference range was not used to interpr et this result as mario l/abnormal. [facility]2015-12-28 16:57:00 Test Item Value Reference Range Interpretation Comments ALT (test code = ALT) 43 See_Comment [Auto mated message] The system which ge nerated this result transmit arvind reference range : <=65. The reference range was not used to interpr et this result as mario l/abnormal. [facility]2015-12-28 16:57:00 Test Item Value Reference Range Interpretation Comments Alk Phos (test code = Alk Phos) 97 39-136 [facility]2015-12-28 16:57:00 Test Item Value Reference Range Interpretation Comments Albumin Lvl (test code = Albumin Lvl) 3.6 3.5-5.0 [facility]2015-12-28 16:57:00 Test Item Value Reference Range Interpretation Comments Total Protein (test code = Total 7.3 6.4-8.4 Protein) [facility]2015-12-28 16:57:00 Test Item Value Reference Range Interpretation Comments Bili Total (test code = Bili Total) 0.4 0.2-1.3 [facility]2015-12-28 16:57:00 Test Item Value Reference Range Interpretation Comments Glucose Lvl (test code = Glucose Lvl) 95 70-99 [facility]2015-12-28 16:57:00 Test Item Value Reference Range Interpretation Comments Creatinine Lvl (test code = Creatinine 0.93 0.50-1.40 Lvl) [facility]2015-12-28 16:57:00 Test Item Value Reference Range Interpretation Comments BUN (test code = BUN) 9 7-22 [facility]2015-12-28 16:57:00 Test Item Value Reference Range Interpretation Comments Sodium Lvl (test code = Sodium Lvl) 139 135-145 [facility]2015-12-28 16:57:00 Test Item Value Reference Range Interpretation Comments A/G Ratio (test code = A/G Ratio) 1.0 0.7-1.6 [facility]2015-12-28 16:57:00 Test Item Value Reference Range Interpretation Comments Globulin (test code = Globulin) 3.7 2.0-4.0 [facility]2015-12-28 16:57:00 Test Item Value Reference Range Interpretation Comments B/C Ratio (test code = B/C Ratio) 10 - [facility]2015-12-28 16:57:00 Test Item Value Reference Range Interpretation Comments AGAP (test code = AGAP) 12.6 10.0-20.0 [facility]kxmsaoRZKZPFSPPALFD1539-74-03 16:57:00 Test Item Value Reference Range Interpretation Comments S Preg (test code = S Negative *NA*(08/26/15 Preg) 10:57 AM) [facility] HospitalRlhmpwmLYSROSDSKA8348-14-72 16:57:00 Test Item Value Reference Range Interpretation Comments Eosinophils # (test code 0.4 See_Comment [A utomated message] The = Eosinophils #) system whic h generated this result tra nsmitted reference range : <=0.5. The reference r kat was not used to int erpret this result as normal/abnormal . [facility] HospitalUbropfcEHVWVRJUGO4964-41-26 16:57:00 Test Item Value Reference Range Interpretation Comments Microcyte (test code = 1+ *ABN*(08/26/15 Microcyte) 10:57 AM) [facility] HospitalWyiazveQWXCSVOXBR6376-47-57 16:57:00 Test Item Value Reference Range Interpretation Comments Basophils # (test code 0.1 See_Comment [Aut omated message] The = Basophils #) system which generated this result tra nsmitted reference range : <=0.2. The reference r kat was not used to int erpret this result as normal/abnormal . [facility] HospitalRzcklrzBJHQWMYZAA0781-60-17 16:57:00 Test Item Value Reference Range Interpretation Comments Monocytes (test code = Monocytes) 8.6 2.0-12.0 [facility] HospitalZivnxxsWSAVIHAFNR1228-04-36 16:57:00 Test Item Value Reference Range Interpretation Comments Lymphocytes (test code = Lymphocytes) 40.6 20.0-40.0 [facility] HospitalKdojuzyEHVIXAGJWD8516-48-11 16:57:00 Test Item Value Reference Range Interpretation Comments Eosinophils (test code = 5.0 See_Comment [A utomated message] The Eosinophils) system which ge nerated this result tra nsmitted reference range : <=4.0. The reference r kat was not used to int erpret this result as normal/abnormal . [facility] HospitalQcjsuysUEXGLYDUVJ3617-91-75 16:57:00 Test Item Value Reference Range Interpretation Comments Segs (test code = Segs) 44.8 45.0-75.0 [facility] HospitalMkxgpgoBDZXPRZKWK8471-75-75 16:57:00 Test Item Value Reference Range Interpretation Comments Basophils (test code = 1.0 See_Comment [Aut omated message] The Basophils) system which ge nerated this result tra nsmitted reference range : <=1.0. The reference r kat was not used to int erpret this result as normal/abnormal . [facility] HospitalGtbioqiYMWSIQFNIL2607-77-05 16:57:00 Test Item Value Reference Range Interpretation Comments Segs-Bands # (test code = Segs-Bands #) 3.3 1.5-8.1 [facility] HospitalYwjoesbXRQLPUZCTD3589-13-09 16:57:00 Test Item Value Reference Range Interpretation Comments Monocytes # (test code 0.6 See_Comment [Aut omated message] The = Monocytes #) system which generated this result tra nsmitted reference range : <=0.8. The reference r kat was not used to int erpret this result as normal/abnormal . [facility]YE[facility]WS[facility]Q0342[facility]-02 16:57:00 Test Item Value Reference Range Interpretation Comments Lymphocytes # (test code = Lymphocytes 3.0 1.0-5.5 #) [facility]NpqenlqTQQQOPIBUD3805-00-31 16:57:00 Test Item Value Reference Range Interpretation Comments PT (test code = PT) 14.0 s 12.0-14.7 [facility] HospitalGyyduceFDORSBCOWR7224-17-16 16:57:00 Test Item Value Reference Range Interpretation Comments INR (test code = INR) 1.05 0.85-1.17 [place] [id number] 16:57:00 Test Item Value Reference Range Interpretation Comments PTT (test code = PTT) 30.3 s 22.9-35.8 [place] [address]-12-28 16:57:00 Test Item Value Reference Range Interpretation Comments MPV (test code = MPV) 8.9 7.4-10.4 [facility]LljwmmjRZQVWRABBZ4210-78-46 16:57:00 Test Item Value Reference Range Interpretation Comments RDW (test code = RDW) 15.8 11.5-14.5 [facility] HospitalMjwxcahTINBUIKMXA1406-85-85 16:57:00 Test Item Value Reference Range Interpretation Comments Platelet (test code = Platelet) 271 133-450 [facility] HospitalPfeagowBJAROKNPLG8450-70-05 16:57:00 Test Item Value Reference Range Interpretation Comments WBC (test code = WBC) 7.3 3.7-10.4 [facility] HospitalHcyljwuIGRUFVMOEM5033-25-81 16:57:00 Test Item Value Reference Range Interpretation Comments RBC (test code = RBC) 5.14 4.20-5.40 [facility] HospitalYcgfyilOIHDATAXSK2686-71-20 16:57:00 Test Item Value Reference Range Interpretation Comments MCV (test code = MCV) 77.9 80.0-98.0 [facility] HospitalZmwlonqCCJIWCYTXF1393-92-34 16:57:00 Test Item Value Reference Range Interpretation Comments MCH (test code = MCH) 23.9 pg 27.0-31.0 [facility] HospitalIbshqtxMMDLSHYDNV9969-51-74 16:57:00 Test Item Value Reference Range Interpretation Comments MCHC (test code = MCHC) 30.7 32.0-36.0 [facility] HospitalDahtszkJMCLLCWRHP7452-26-30 16:57:00 Test Item Value Reference Range Interpretation Comments Hct (test code = Hct) 40.1 36.0-48.0 [facility] HospitalAhkkjyfAWJTBGIQMQ4774-38-15 16:57:00 Test Item Value Reference Range Interpretation Comments Hgb (test code = Hgb) 12.3 12.0-16.0 [place] 842925-12-28 16:57:00 Test Item Value Reference Range Interpretation Comments eGFR (test code = eGFR) 86 [place] 842925-12-28 16:57:00 Test Item Value Reference Range Interpretation Comments Potassium Lvl (test code = Potassium 3.6 3.5-5.1 Lvl) [facility]2015-12-28 16:57:00 Test Item Value Reference Range Interpretation Comments CO2 (test code = CO2) 27 24-32 [facility]2015-12-28 16:57:00 Test Item Value Reference Range Interpretation Comments Chloride Lvl (test code = Chloride Lvl) 103 95-109 [facility]2015-12-28 16:57:00 Test Item Value Reference Range Interpretation Comments Calcium Lvl (test code = Calcium Lvl) 9.4 8.5-10.5 [facility]2015-12-28 16:57:00 Test Item Value Reference Range Interpretation Comments AST (test code = AST) 16 See_Comment [Auto mated message] The system which ge nerated this result transmit arvind reference range : <=37. The reference range was not used to interpr et this result as mario l/abnormal. [facility]2015-12-28 16:57:00 Test Item Value Reference Range Interpretation Comments ALT (test code = ALT) 43 See_Comment [Auto mated message] The system which ge nerated this result transmit arvind reference range : <=65. The reference range was not used to interpr et this result as mario l/abnormal. [place] 842925-12-28 16:57:00 Test Item Value Reference Range Interpretation Comments Alk Phos (test code = Alk Phos) 97 39-136 [facility]2015-12-28 16:57:00 Test Item Value Reference Range Interpretation Comments Albumin Lvl (test code = Albumin Lvl) 3.6 3.5-5.0 [facility]2015-12-28 16:57:00 Test Item Value Reference Range Interpretation Comments Total Protein (test code = Total 7.3 6.4-8.4 Protein) [facility]2015-12-28 16:57:00 Test Item Value Reference Range Interpretation Comments Bili Total (test code = Bili Total) 0.4 0.2-1.3 [facility]2015-12-28 16:57:00 Test Item Value Reference Range Interpretation Comments Glucose Lvl (test code = Glucose Lvl) 95 70-99 [facility]2015-12-28 16:57:00 Test Item Value Reference Range Interpretation Comments Creatinine Lvl (test code = Creatinine 0.93 0.50-1.40 Lvl) [facility]2015-12-28 16:57:00 Test Item Value Reference Range Interpretation Comments BUN (test code = BUN) 9 - [facility]2015-12-28 16:57:00 Test Item Value Reference Range Interpretation Comments Sodium Lvl (test code = Sodium Lvl) 139 135-145 [facility]2015-12-28 16:57:00 Test Item Value Reference Range Interpretation Comments A/G Ratio (test code = A/G Ratio) 1.0 0.7-1.6 [facility]2015-12-28 16:57:00 Test Item Value Reference Range Interpretation Comments Globulin (test code = Globulin) 3.7 2.0-4.0 [facility]2015-12-28 16:57:00 Test Item Value Reference Range Interpretation Comments B/C Ratio (test code = B/C Ratio) 10 - [facility]2015-12-28 16:57:00 Test Item Value Reference Range Interpretation Comments AGAP (test code = AGAP) 12.6 10.0-20.0 [facility]muwunbPBAQDNTZKPZPY0601-87-04 16:57:00 Test Item Value Reference Range Interpretation Comments S Preg (test code = S Negative *NA*(08/26/15 Preg) 10:57 AM) [facility]PPTHIGPOTW0675-36-26 16:57:00 Test Item Value Reference Range Interpretation Comments Eosinophils # (test code 0.4 See_Comment [A utomated message] The = Eosinophils #) system whic h generated this result tra nsmitted reference range : <=0.5. The reference r kat was not used to int erpret this result as normal/abnormal . [facility] HospitalZuhivctVXJUYVFNHX1604-45-09 16:57:00 Test Item Value Reference Range Interpretation Comments Microcyte (test code = 1+ *ABN*(08/26/15 Microcyte) 10:57 AM) [facility] HospitalFsqqgyuVXEYYFGVPS8412-91-60 16:57:00 Test Item Value Reference Range Interpretation Comments Basophils # (test code 0.1 See_Comment [Aut omated message] The = Basophils #) system which generated this result tra nsmitted reference range : <=0.2. The reference r kat was not used to int erpret this result as normal/abnormal . [facility] HospitalLrqoxtvENAGSLPBXQ6624-78-22 16:57:00 Test Item Value Reference Range Interpretation Comments Monocytes (test code = Monocytes) 8.6 2.0-12.0 [facility] HospitalFwcnxxbQCGEBBHGYK1506-52-58 16:57:00 Test Item Value Reference Range Interpretation Comments Lymphocytes (test code = Lymphocytes) 40.6 20.0-40.0 [facility] HospitalCfcdunrXEMMVKDAXJ0132-58-97 16:57:00 Test Item Value Reference Range Interpretation Comments Eosinophils (test code = 5.0 See_Comment [A utomated message] The Eosinophils) system which ge nerated this result tra nsmitted reference range : <=4.0. The reference r kat was not used to int erpret this result as normal/abnormal . [facility] HospitalWqudazmEYDIZGBFLK2218-52-37 16:57:00 Test Item Value Reference Range Interpretation Comments Segs (test code = Segs) 44.8 45.0-75.0 [facility] HospitalDzaxqkzCZMACVLNIO8774-09-27 16:57:00 Test Item Value Reference Range Interpretation Comments Basophils (test code = 1.0 See_Comment [Aut omated message] The Basophils) system which ge nerated this result tra nsmitted reference range : <=1.0. The reference r kat was not used to int erpret this result as normal/abnormal . [facility] HospitalZttgctyKTRUOJDXKA0480-24-90 16:57:00 Test Item Value Reference Range Interpretation Comments Segs-Bands # (test code = Segs-Bands #) 3.3 1.5-8.1 [facility] HospitalOoxjdtoPDRZEQRDUM7661-41-28 16:57:00 Test Item Value Reference Range Interpretation Comments Monocytes # (test code 0.6 See_Comment [Aut omated message] The = Monocytes #) system which generated this result tra nsmitted reference range : <=0.8. The reference r kat was not used to int erpret this result as normal/abnormal . [facility] HospitalNapeslzEUYEFSDKUX6620-75-78 16:57:00 Test Item Value Reference Range Interpretation Comments Lymphocytes # (test code = Lymphocytes 3.0 1.0-5.5 #) [facility] HospitalLrbmywhAHHVXVPSVM5009-88-99 16:57:00 Test Item Value Reference Range Interpretation Comments PT (test code = PT) 14.0 s 12.0-14.7 [facility] HospitalIjtclcyQGMFBGDNYK6059-26-98 16:57:00 Test Item Value Reference Range Interpretation Comments INR (test code = INR) 1.05 0.85-1.17 [facility] HospitalJcmulvgXTVWZOUIFC9417-68-51 16:57:00 Test Item Value Reference Range Interpretation Comments PTT (test code = PTT) 30.3 s 22.9-35.8 [facility] HospitalZroazktMIEPYBICGF6126-70-18 16:57:00 Test Item Value Reference Range Interpretation Comments MPV (test code = MPV) 8.9 7.4-10.4 [facility] HospitalZpknuczQYRCXWBXDA2932-96-40 16:57:00 Test Item Value Reference Range Interpretation Comments RDW (test code = RDW) 15.8 11.5-14.5 [facility] HospitalTztfhyiRBFXEOITNF2284-24-98 16:57:00 Test Item Value Reference Range Interpretation Comments Platelet (test code = Platelet) 271 133-450 [facility] HospitalVawxeuqRXGDRJDLPY4517-73-52 16:57:00 Test Item Value Reference Range Interpretation Comments WBC (test code = WBC) 7.3 3.7-10.4 [facility] HospitalIqyygnvJTRLNRACBB3598-11-44 16:57:00 Test Item Value Reference Range Interpretation Comments RBC (test code = RBC) 5.14 4.20-5.40 [facility] HospitalZkqpbmkNSGOAMHDAO2149-32-85 16:57:00 Test Item Value Reference Range Interpretation Comments MCV (test code = MCV) 77.9 80.0-98.0 [facility] HospitalTgqvcygZNXDWHAFWW1120-86-25 16:57:00 Test Item Value Reference Range Interpretation Comments MCH (test code = MCH) 23.9 pg 27.0-31.0 [facility] HospitalVmixnqcGPXNLCPHIX6871-56-01 16:57:00 Test Item Value Reference Range Interpretation Comments MCHC (test code = MCHC) 30.7 32.0-36.0 [facility] HospitalHzdpkhpPJVKVAVEHI9587-95-21 16:57:00 Test Item Value Reference Range Interpretation Comments Hct (test code = Hct) 40.1 36.0-48.0 [facility] HospitalNefoqflCFJCBLEQLW8376-02-86 16:57:00 Test Item Value Reference Range Interpretation Comments Hgb (test code = Hgb) 12.3 12.0-16.0 [facility]2015-12-28 16:57:00 Test Item Value Reference Range Interpretation Comments eGFR (test code = eGFR) 86 [facility]2015-12-28 16:57:00 Test Item Value Reference Range Interpretation Comments Potassium Lvl (test code = Potassium 3.6 3.5-5.1 Lvl) [facility]2015-12-28 16:57:00 Test Item Value Reference Range Interpretation Comments CO2 (test code = CO2) 27 24-32 [facility]2015-12-28 16:57:00 Test Item Value Reference Range Interpretation Comments Chloride Lvl (test code = Chloride Lvl) 103 95-109 [facility]2015-12-28 16:57:00 Test Item Value Reference Range Interpretation Comments Calcium Lvl (test code = Calcium Lvl) 9.4 8.5-10.5 [facility]2015-12-28 16:57:00 Test Item Value Reference Range Interpretation Comments AST (test code = AST) 16 See_Comment [Auto mated message] The system which ge nerated this result transmit arvind reference range : <=37. The reference range was not used to interpr et this result as mario l/abnormal. [facility]2015-12-28 16:57:00 Test Item Value Reference Range Interpretation Comments ALT (test code = ALT) 43 See_Comment [Auto mated message] The system which ge nerated this result transmit arvind reference range : <=65. The reference range was not used to interpr et this result as mario l/abnormal. [facility]2015-12-28 16:57:00 Test Item Value Reference Range Interpretation Comments Alk Phos (test code = Alk Phos) 97 39-136 [facility]2015-12-28 16:57:00 Test Item Value Reference Range Interpretation Comments Albumin Lvl (test code = Albumin Lvl) 3.6 3.5-5.0 [facility]2015-12-28 16:57:00 Test Item Value Reference Range Interpretation Comments Total Protein (test code = Total 7.3 6.4-8.4 Protein) [facility]2015-12-28 16:57:00 Test Item Value Reference Range Interpretation Comments Bili Total (test code = Bili Total) 0.4 0.2-1.3 [facility]2015-12-28 16:57:00 Test Item Value Reference Range Interpretation Comments Glucose Lvl (test code = Glucose Lvl) 95 70-99 [facility]2015-12-28 16:57:00 Test Item Value Reference Range Interpretation Comments Creatinine Lvl (test code = Creatinine 0.93 0.50-1.40 Lvl) [facility]2015-12-28 16:57:00 Test Item Value Reference Range Interpretation Comments BUN (test code = BUN) 9 7-22 [facility]2015-12-28 16:57:00 Test Item Value Reference Range Interpretation Comments Sodium Lvl (test code = Sodium Lvl) 139 135-145 [facility]2015-12-28 16:57:00 Test Item Value Reference Range Interpretation Comments A/G Ratio (test code = A/G Ratio) 1.0 0.7-1.6 [facility]2015-12-28 16:57:00 Test Item Value Reference Range Interpretation Comments Globulin (test code = Globulin) 3.7 2.0-4.0 [facility]2015-12-28 16:57:00 Test Item Value Reference Range Interpretation Comments B/C Ratio (test code = B/C Ratio) 10 6-25 [facility]2015-12-28 16:57:00 Test Item Value Reference Range Interpretation Comments AGAP (test code = AGAP) 12.6 10.0-20.0 [facility]EcpzvnsCGKDJKAFTNTNJ8123-72-14 16:57:00 Test Item Value Reference Range Interpretation Comments S Preg (test code = S Negative *NA*(08/26/15 Preg) 10:57 AM) [facility] HospitalDmjesmzSWFSLNGJKE7313-12-48 16:57:00 Test Item Value Reference Range Interpretation Comments Eosinophils # (test code 0.4 See_Comment [A utomated message] The = Eosinophils #) system whic h generated this result tra nsmitted reference range : <=0.5. The reference r kat was not used to int erpret this result as normal/abnormal . [facility] HospitalNjkbplbXIUHHHWMLP3047-78-97 16:57:00 Test Item Value Reference Range Interpretation Comments Microcyte (test code = 1+ *ABN*(08/26/15 Microcyte) 10:57 AM) [facility] HospitalIbtwtzkQZIEZHYECI1899-65-05 16:57:00 Test Item Value Reference Range Interpretation Comments Basophils # (test code 0.1 See_Comment [Aut omated message] The = Basophils #) system which generated this result tra nsmitted reference range : <=0.2. The reference r kat was not used to int erpret this result as normal/abnormal . [facility] HospitalIsbvluqXBCTUKHAMM4538-56-51 16:57:00 Test Item Value Reference Range Interpretation Comments Monocytes (test code = Monocytes) 8.6 2.0-12.0 [facility] HospitalHrjuvqlKADMTZFHHW5805-65-45 16:57:00 Test Item Value Reference Range Interpretation Comments Lymphocytes (test code = Lymphocytes) 40.6 20.0-40.0 [facility] HospitalLpiyapnBXILEOQMDJ8063-86-19 16:57:00 Test Item Value Reference Range Interpretation Comments Eosinophils (test code = 5.0 See_Comment [A utomated message] The Eosinophils) system which ge nerated this result tra nsmitted reference range : <=4.0. The reference r kat was not used to int erpret this result as normal/abnormal . [facility] HospitalVnzkaxuELNJXZYPRQ5470-81-71 16:57:00 Test Item Value Reference Range Interpretation Comments Segs (test code = Segs) 44.8 45.0-75.0 [facility] HospitalGzqsxslTZABQOJTYY1836-69-51 16:57:00 Test Item Value Reference Range Interpretation Comments Basophils (test code = 1.0 See_Comment [Aut omated message] The Basophils) system which ge nerated this result tra nsmitted reference range : <=1.0. The reference r kat was not used to int erpret this result as normal/abnormal . [facility] HospitalJaemkgkUZOCNHSXBG7006-17-92 16:57:00 Test Item Value Reference Range Interpretation Comments Segs-Bands # (test code = Segs-Bands #) 3.3 1.5-8.1 [facility] HospitalVsnemejCKKZZAHXKS7163-75-86 16:57:00 Test Item Value Reference Range Interpretation Comments Monocytes # (test code 0.6 See_Comment [Aut omated message] The = Monocytes #) system which generated this result tra nsmitted reference range : <=0.8. The reference r kat was not used to int erpret this result as normal/abnormal . [facility] HospitalDqhkivbNPEVSFPSCC9776-12-82 16:57:00 Test Item Value Reference Range Interpretation Comments Lymphocytes # (test code = Lymphocytes 3.0 1.0-5.5 #) [facility] HospitalAahvyugYFJNHELHAQ5460-64-16 16:57:00 Test Item Value Reference Range Interpretation Comments PT (test code = PT) 14.0 s 12.0-14.7 [facility] HospitalHhtykqnXMGPYGTPIH2170-30-03 16:57:00 Test Item Value Reference Range Interpretation Comments INR (test code = INR) 1.05 0.85-1.17 [facility] HospitalXrbsmncXUHWSRFJCA5370-09-93 16:57:00 Test Item Value Reference Range Interpretation Comments PTT (test code = PTT) 30.3 s 22.9-35.8 [facility] HospitalFioinmnEULCVYETYE9232-11-95 16:57:00 Test Item Value Reference Range Interpretation Comments MPV (test code = MPV) 8.9 7.4-10.4 [facility] HospitalCmbriylLVQLZMSJNT3199-37-32 16:57:00 Test Item Value Reference Range Interpretation Comments RDW (test code = RDW) 15.8 11.5-14.5 [facility] HospitalCqunonsYKDSJBKKOX3300-62-89 16:57:00 Test Item Value Reference Range Interpretation Comments Platelet (test code = Platelet) 271 133-450 [facility] HospitalJcfrqtdKTQNKXQIIR6174-76-95 16:57:00 Test Item Value Reference Range Interpretation Comments WBC (test code = WBC) 7.3 3.7-10.4 [facility] HospitalPezzzfsKJVWSFIJJF4826-46-04 16:57:00 Test Item Value Reference Range Interpretation Comments RBC (test code = RBC) 5.14 4.20-5.40 [facility] HospitalXrkyqxyIOQXGYEIXF7227-06-83 16:57:00 Test Item Value Reference Range Interpretation Comments MCV (test code = MCV) 77.9 80.0-98.0 [facility] HospitalQgefxmbFCOPXUXWNQ9329-40-10 16:57:00 Test Item Value Reference Range Interpretation Comments MCH (test code = MCH) 23.9 pg 27.0-31.0 [facility] HospitalHjkibslQIRQXRHUIE6783-47-35 16:57:00 Test Item Value Reference Range Interpretation Comments MCHC (test code = MCHC) 30.7 32.0-36.0 [facility] HospitalNcgyiayEKSUNGSBIL7160-79-52 16:57:00 Test Item Value Reference Range Interpretation Comments Hct (test code = Hct) 40.1 36.0-48.0 [facility] HospitalPdbbpjfDVLZFCLDEI2281-84-92 16:57:00 Test Item Value Reference Range Interpretation Comments Hgb (test code = Hgb) 12.3 12.0-16.0 [facility]2015-12-28 16:57:00 Test Item Value Reference Range Interpretation Comments eGFR (test code = eGFR) 86 [facility]2015-12-28 16:57:00 Test Item Value Reference Range Interpretation Comments Potassium Lvl (test code = Potassium 3.6 3.5-5.1 Lvl) [facility]2015-12-28 16:57:00 Test Item Value Reference Range Interpretation Comments CO2 (test code = CO2) 27 24-32 [facility]2015-12-28 16:57:00 Test Item Value Reference Range Interpretation Comments Chloride Lvl (test code = Chloride Lvl) 103 95-109 [facility]2015-12-28 16:57:00 Test Item Value Reference Range Interpretation Comments Calcium Lvl (test code = Calcium Lvl) 9.4 8.5-10.5 [facility]2015-12-28 16:57:00 Test Item Value Reference Range Interpretation Comments AST (test code = AST) 16 See_Comment [Auto mated message] The system which ge nerated this result transmit arvind reference range : <=37. The reference range was not used to interpr et this result as mario l/abnormal. [facility]2015-12-28 16:57:00 Test Item Value Reference Range Interpretation Comments ALT (test code = ALT) 43 See_Comment [Auto mated message] The system which ge nerated this result transmit arvind reference range : <=65. The reference range was not used to interpr et this result as mario l/abnormal. [facility]2015-12-28 16:57:00 Test Item Value Reference Range Interpretation Comments Alk Phos (test code = Alk Phos) 97 39-136 [facility]2015-12-28 16:57:00 Test Item Value Reference Range Interpretation Comments Albumin Lvl (test code = Albumin Lvl) 3.6 3.5-5.0 [facility]2015-12-28 16:57:00 Test Item Value Reference Range Interpretation Comments Total Protein (test code = Total 7.3 6.4-8.4 Protein) [facility]2015-12-28 16:57:00 Test Item Value Reference Range Interpretation Comments Bili Total (test code = Bili Total) 0.4 0.2-1.3 [facility]2015-12-28 16:57:00 Test Item Value Reference Range Interpretation Comments Glucose Lvl (test code = Glucose Lvl) 95 70-99 [facility]2015-12-28 16:57:00 Test Item Value Reference Range Interpretation Comments Creatinine Lvl (test code = Creatinine 0.93 0.50-1.40 Lvl) [facility]2015-12-28 16:57:00 Test Item Value Reference Range Interpretation Comments BUN (test code = BUN) 9 7-22 [facility]2015-12-28 16:57:00 Test Item Value Reference Range Interpretation Comments Sodium Lvl (test code = Sodium Lvl) 139 135-145 [facility]2015-12-28 16:57:00 Test Item Value Reference Range Interpretation Comments A/G Ratio (test code = A/G Ratio) 1.0 0.7-1.6 [facility]2015-12-28 16:57:00 Test Item Value Reference Range Interpretation Comments Globulin (test code = Globulin) 3.7 2.0-4.0 [facility]2015-12-28 16:57:00 Test Item Value Reference Range Interpretation Comments B/C Ratio (test code = B/C Ratio) 10 6-25 [facility]H4994[facility]28 16:57:00 Test Item Value Reference Range Interpretation Comments AGAP (test code = AGAP) 12.6 10.0-20.0 [facility]tgvcdwZDSKGVTVYHCNA7836-60-99 16:57:00 Test Item Value Reference Range Interpretation Comments S Preg (test code = S Negative *NA*(08/26/15 Preg) 10:57 AM) [facility] HospitalAbamsfaLNSUBELNKB7299-14-70 16:57:00 Test Item Value Reference Range Interpretation Comments Eosinophils # (test code 0.4 See_Comment [A utomated message] The = Eosinophils #) system whic h generated this result tra nsmitted reference range : <=0.5. The reference r kat was not used to int erpret this result as normal/abnormal . [facility] HospitalCcsqzjcCKFNKNBJRD1894-36-00 16:57:00 Test Item Value Reference Range Interpretation Comments Microcyte (test code = 1+ *ABN*(08/26/15 Microcyte) 10:57 AM) [facility] HospitalWhblopcEVRFZFMGLM0652-16-64 16:57:00 Test Item Value Reference Range Interpretation Comments Basophils # (test code 0.1 See_Comment [Aut omated message] The = Basophils #) system which generated this result tra nsmitted reference range : <=0.2. The reference r kat was not used to int erpret this result as normal/abnormal . [facility] HospitalPihjzssUBPPWBWMRE5036-81-33 16:57:00 Test Item Value Reference Range Interpretation Comments Monocytes (test code = Monocytes) 8.6 2.0-12.0 [facility]boudygGKNHZZYLRT9398-56-97 16:57:00 Test Item Value Reference Range Interpretation Comments Lymphocytes (test code = Lymphocytes) 40.6 20.0-40.0 [facility] HospitalAlnhcrvQZAFLYWIBS5611-81-00 16:57:00 Test Item Value Reference Range Interpretation Comments Eosinophils (test code = 5.0 See_Comment [A utomated message] The Eosinophils) system which ge nerated this result tra nsmitted reference range : <=4.0. The reference r kat was not used to int erpret this result as normal/abnormal . [facility] HospitalLjjokbzFRYKBOHVSQ8187-14-81 16:57:00 Test Item Value Reference Range Interpretation Comments Segs (test code = Segs) 44.8 45.0-75.0 [facility] HospitalGawxjmaWOJJQFQEVN1906-06-96 16:57:00 Test Item Value Reference Range Interpretation Comments Basophils (test code = 1.0 See_Comment [Aut omated message] The Basophils) system which ge nerated this result tra nsmitted reference range : <=1.0. The reference r kat was not used to int erpret this result as normal/abnormal . [facility] HospitalBkfavelGMNUXPZVPQ7515-79-57 16:57:00 Test Item Value Reference Range Interpretation Comments Segs-Bands # (test code = Segs-Bands #) 3.3 1.5-8.1 [facility] HospitalRjwhxasITHPPMJLRU0708-30-67 16:57:00 Test Item Value Reference Range Interpretation Comments Monocytes # (test code 0.6 See_Comment [Aut omated message] The = Monocytes #) system which generated this result tra nsmitted reference range : <=0.8. The reference r kat was not used to int erpret this result as normal/abnormal . [facility] HospitalBedeyyeZYTGZQSYWE0805-39-34 16:57:00 Test Item Value Reference Range Interpretation Comments Lymphocytes # (test code = Lymphocytes 3.0 1.0-5.5 #) [facility] HospitalQsgydmmRTPJRUALEV6236-99-47 16:57:00 Test Item Value Reference Range Interpretation Comments PT (test code = PT) 14.0 s 12.0-14.7 [facility] HospitalVvtsnkvQUXSDPZUWV7688-54-31 16:57:00 Test Item Value Reference Range Interpretation Comments INR (test code = INR) 1.05 0.85-1.17 [facility] HospitalKugbqbzAZWFMEWZMP6278-49-59 16:57:00 Test Item Value Reference Range Interpretation Comments PTT (test code = PTT) 30.3 s 22.9-35.8 [facility] HospitalMbyhkliSXUZUYVVAG5863-09-58 16:57:00 Test Item Value Reference Range Interpretation Comments MPV (test code = MPV) 8.9 7.4-10.4 [facility] HospitalVrgwwxxDDNOADDVIO8707-48-10 16:57:00 Test Item Value Reference Range Interpretation Comments RDW (test code = RDW) 15.8 11.5-14.5 [facility] HospitalNvhxgwmAUXQUMMRBE6361-45-89 16:57:00 Test Item Value Reference Range Interpretation Comments Platelet (test code = Platelet) 271 133-450 [facility] HospitalEogxdnhIWZLNSQPFB9505-71-23 16:57:00 Test Item Value Reference Range Interpretation Comments WBC (test code = WBC) 7.3 3.7-10.4 [facility] HospitalCbkqmwmBOCTJAIMRT4408-81-06 16:57:00 Test Item Value Reference Range Interpretation Comments RBC (test code = RBC) 5.14 4.20-5.40 [facility] HospitalYuiwvinKMXYDESWZD3318-70-24 16:57:00 Test Item Value Reference Range Interpretation Comments MCV (test code = MCV) 77.9 80.0-98.0 [facility] HospitalCfvsjybLFQJFXKSWG9292-97-49 16:57:00 Test Item Value Reference Range Interpretation Comments MCH (test code = MCH) 23.9 pg 27.0-31.0 [facility] HospitalRmeyhybWPVKELDXIO7568-28-79 16:57:00 Test Item Value Reference Range Interpretation Comments MCHC (test code = MCHC) 30.7 32.0-36.0 [facility] HospitalAodgfrrCPNDTEVDIM8944-30-71 16:57:00 Test Item Value Reference Range Interpretation Comments Hct (test code = Hct) 40.1 36.0-48.0 [facility] HospitalKwodbenCOJWBHCLZF1696-64-81 16:57:00 Test Item Value Reference Range Interpretation Comments Hgb (test code = Hgb) 12.3 12.0-16.0 [facility]2015-12-28 16:57:00 Test Item Value Reference Range Interpretation Comments eGFR (test code = eGFR) 86 [facility]2015-12-28 16:57:00 Test Item Value Reference Range Interpretation Comments Potassium Lvl (test code = Potassium 3.6 3.5-5.1 Lvl) [facility]2015-12-28 16:57:00 Test Item Value Reference Range Interpretation Comments CO2 (test code = CO2) 27 24-32 [facility]2015-12-28 16:57:00 Test Item Value Reference Range Interpretation Comments Chloride Lvl (test code = Chloride Lvl) 103 95-109 [facility]2015-12-28 16:57:00 Test Item Value Reference Range Interpretation Comments Calcium Lvl (test code = Calcium Lvl) 9.4 8.5-10.5 [facility]2015-12-28 16:57:00 Test Item Value Reference Range Interpretation Comments AST (test code = AST) 16 See_Comment [Auto mated message] The system which ge nerated this result transmit arvind reference range : <=37. The reference range was not used to interpr et this result as mario l/abnormal. [facility]2015-12-28 16:57:00 Test Item Value Reference Range Interpretation Comments ALT (test code = ALT) 43 See_Comment [Auto mated message] The system which ge nerated this result transmit arvind reference range : <=65. The reference range was not used to interpr et this result as mario l/abnormal. [facility]2015-12-28 16:57:00 Test Item Value Reference Range Interpretation Comments Alk Phos (test code = Alk Phos) 97 39-136 [facility]2015-12-28 16:57:00 Test Item Value Reference Range Interpretation Comments Albumin Lvl (test code = Albumin Lvl) 3.6 3.5-5.0 [facility]2015-12-28 16:57:00 Test Item Value Reference Range Interpretation Comments Total Protein (test code = Total 7.3 6.4-8.4 Protein) [facility]2015-12-28 16:57:00 Test Item Value Reference Range Interpretation Comments Bili Total (test code = Bili Total) 0.4 0.2-1.3 [facility]2015-12-28 16:57:00 Test Item Value Reference Range Interpretation Comments Glucose Lvl (test code = Glucose Lvl) 95 70-99 [facility]2015-12-28 16:57:00 Test Item Value Reference Range Interpretation Comments Creatinine Lvl (test code = Creatinine 0.93 0.50-1.40 Lvl) [place] 842925-12-28 16:57:00 Test Item Value Reference Range Interpretation Comments BUN (test code = BUN) 9 7-22 [place] 842925-12-28 16:57:00 Test Item Value Reference Range Interpretation Comments Sodium Lvl (test code = Sodium Lvl) 139 135-145 [facility]2015-12-28 16:57:00 Test Item Value Reference Range Interpretation Comments A/G Ratio (test code = A/G Ratio) 1.0 0.7-1.6 [facility]2015-12-28 16:57:00 Test Item Value Reference Range Interpretation Comments Globulin (test code = Globulin) 3.7 2.0-4.0 [facility]2015-12-28 16:57:00 Test Item Value Reference Range Interpretation Comments B/C Ratio (test code = B/C Ratio) 10 6-25 [facility]2015-12-28 16:57:00 Test Item Value Reference Range Interpretation Comments AGAP (test code = AGAP) 12.6 10.0-20.0 [place] [id number] 16:57:00 Test Item Value Reference Range Interpretation Comments S Preg (test code = S Negative *NA*(08/26/15 Preg) 10:57 AM) [facility] HospitalEzllwpiJHKZZFKBEO1901-02-25 16:57:00 Test Item Value Reference Range Interpretation Comments Eosinophils # (test code 0.4 See_Comment [A utomated message] The = Eosinophils #) system whic h generated this result tra nsmitted reference range : <=0.5. The reference r kat was not used to int erpret this result as normal/abnormal . [facility] HospitalHchvvasGRHBPTNDBD1795-91-37 16:57:00 Test Item Value Reference Range Interpretation Comments Microcyte (test code = 1+ *ABN*(08/26/15 Microcyte) 10:57 AM) [facility] HospitalBeozngoAQMDBISOZM7664-72-56 16:57:00 Test Item Value Reference Range Interpretation Comments Basophils # (test code 0.1 See_Comment [Aut omated message] The = Basophils #) system which generated this result tra nsmitted reference range : <=0.2. The reference r kat was not used to int erpret this result as normal/abnormal . [facility] HospitalCrypbqlLFHEUQLJUY8839-60-65 16:57:00 Test Item Value Reference Range Interpretation Comments Monocytes (test code = Monocytes) 8.6 2.0-12.0 [facility] HospitalXoipsloNHEHVFOXDZ9014-98-72 16:57:00 Test Item Value Reference Range Interpretation Comments Lymphocytes (test code = Lymphocytes) 40.6 20.0-40.0 [facility] HospitalUubczhjJEKGREFEZT9917-69-52 16:57:00 Test Item Value Reference Range Interpretation Comments Eosinophils (test code = 5.0 See_Comment [A utomated message] The Eosinophils) system which ge nerated this result tra nsmitted reference range : <=4.0. The reference r kat was not used to int erpret this result as normal/abnormal . [facility] HospitalNqqeahhBCPOGUHWJD2700-72-17 16:57:00 Test Item Value Reference Range Interpretation Comments Segs (test code = Segs) 44.8 45.0-75.0 [facility] HospitalBqrjkeeIDNUGHTKHX8070-46-69 16:57:00 Test Item Value Reference Range Interpretation Comments Basophils (test code = 1.0 See_Comment [Aut omated message] The Basophils) system which ge nerated this result tra nsmitted reference range : <=1.0. The reference r kat was not used to int erpret this result as normal/abnormal . [facility] HospitalQbcgaypUWHQWHGSHF6057-56-31 16:57:00 Test Item Value Reference Range Interpretation Comments Segs-Bands # (test code = Segs-Bands #) 3.3 1.5-8.1 [facility] HospitalJtgphbyXYFRGYBOPI3242-57-33 16:57:00 Test Item Value Reference Range Interpretation Comments Monocytes # (test code 0.6 See_Comment [Aut omated message] The = Monocytes #) system which generated this result tra nsmitted reference range : <=0.8. The reference r kat was not used to int erpret this result as normal/abnormal . [facility] HospitalHgfklccAOHEHKRZCV2895-59-78 16:57:00 Test Item Value Reference Range Interpretation Comments Lymphocytes # (test code = Lymphocytes 3.0 1.0-5.5 #) [facility] HospitalIpccsrcWJRZJKZZCA6858-07-50 16:57:00 Test Item Value Reference Range Interpretation Comments PT (test code = PT) 14.0 s 12.0-14.7 [facility] HospitalJnoheoyXGEQELRWZJ2519-37-33 16:57:00 Test Item Value Reference Range Interpretation Comments INR (test code = INR) 1.05 0.85-1.17 [facility] HospitalRlvlhkbGUVZEQJLSA5602-86-67 16:57:00 Test Item Value Reference Range Interpretation Comments PTT (test code = PTT) 30.3 s 22.9-35.8 [facility] HospitalBwcewbwFENIMLGNHC5765-91-29 16:57:00 Test Item Value Reference Range Interpretation Comments MPV (test code = MPV) 8.9 7.4-10.4 [facility] HospitalYqyntmpHWPUAYZBDA3810-05-37 16:57:00 Test Item Value Reference Range Interpretation Comments RDW (test code = RDW) 15.8 11.5-14.5 [facility] HospitalIeieqtsXVVPVEOHQA5375-01-56 16:57:00 Test Item Value Reference Range Interpretation Comments Platelet (test code = Platelet) 271 133-450 [facility] HospitalUbenojfVVVSNMIDIS8073-73-75 16:57:00 Test Item Value Reference Range Interpretation Comments WBC (test code = WBC) 7.3 3.7-10.4 [facility] HospitalGpgzufgDXWZEESOTL3094-17-51 16:57:00 Test Item Value Reference Range Interpretation Comments RBC (test code = RBC) 5.14 4.20-5.40 [facility] HospitalUqgdwmnESAKISNYGY0602-94-86 16:57:00 Test Item Value Reference Range Interpretation Comments MCV (test code = MCV) 77.9 80.0-98.0 [facility] HospitalZqavjwdCGBLJUWWKU7880-38-15 16:57:00 Test Item Value Reference Range Interpretation Comments MCH (test code = MCH) 23.9 pg 27.0-31.0 [facility] HospitalZzncwkzFHOGVAKVWZ5969-75-05 16:57:00 Test Item Value Reference Range Interpretation Comments MCHC (test code = MCHC) 30.7 32.0-36.0 [facility] HospitalJfdeocdRREALUYMCJ4254-80-64 16:57:00 Test Item Value Reference Range Interpretation Comments Hct (test code = Hct) 40.1 36.0-48.0 [facility] HospitalLceogxbFUXRCDTBHM2907-81-21 16:57:00 Test Item Value Reference Range Interpretation Comments Hgb (test code = Hgb) 12.3 12.0-16.0 [facility]2015-12-28 16:57:00 Test Item Value Reference Range Interpretation Comments eGFR (test code = eGFR) 86 [facility]2015-12-28 16:57:00 Test Item Value Reference Range Interpretation Comments Potassium Lvl (test code = Potassium 3.6 3.5-5.1 Lvl) [facility]2015-12-28 16:57:00 Test Item Value Reference Range Interpretation Comments CO2 (test code = CO2) 27 24-32 [facility]2015-12-28 16:57:00 Test Item Value Reference Range Interpretation Comments Chloride Lvl (test code = Chloride Lvl) 103 95-109 [facility]2015-12-28 16:57:00 Test Item Value Reference Range Interpretation Comments Calcium Lvl (test code = Calcium Lvl) 9.4 8.5-10.5 [facility]2015-12-28 16:57:00 Test Item Value Reference Range Interpretation Comments AST (test code = AST) 16 See_Comment [Auto mated message] The system which ge nerated this result transmit arvind reference range : <=37. The reference range was not used to interpr et this result as mario l/abnormal. [facility]2015-12-28 16:57:00 Test Item Value Reference Range Interpretation Comments ALT (test code = ALT) 43 See_Comment [Auto mated message] The system which ge nerated this result transmit arvind reference range : <=65. The reference range was not used to interpr et this result as mario l/abnormal. [facility]2015-12-28 16:57:00 Test Item Value Reference Range Interpretation Comments Alk Phos (test code = Alk Phos) 97 39-136 [facility]2015-12-28 16:57:00 Test Item Value Reference Range Interpretation Comments Albumin Lvl (test code = Albumin Lvl) 3.6 3.5-5.0 [place] 842925-12-28 16:57:00 Test Item Value Reference Range Interpretation Comments Total Protein (test code = Total 7.3 6.4-8.4 Protein) [facility]2015-12-28 16:57:00 Test Item Value Reference Range Interpretation Comments Bili Total (test code = Bili Total) 0.4 0.2-1.3 [place] 842925-12-28 16:57:00 Test Item Value Reference Range Interpretation Comments Glucose Lvl (test code = Glucose Lvl) 95 70-99 [facility]2015-12-28 16:57:00 Test Item Value Reference Range Interpretation Comments Creatinine Lvl (test code = Creatinine 0.93 0.50-1.40 Lvl) [facility]2015-12-28 16:57:00 Test Item Value Reference Range Interpretation Comments BUN (test code = BUN) 9 - [facility]2015-12-28 16:57:00 Test Item Value Reference Range Interpretation Comments Sodium Lvl (test code = Sodium Lvl) 139 135-145 [facility]2015-12-28 16:57:00 Test Item Value Reference Range Interpretation Comments A/G Ratio (test code = A/G Ratio) 1.0 0.7-1.6 [facility]2015-12-28 16:57:00 Test Item Value Reference Range Interpretation Comments Globulin (test code = Globulin) 3.7 2.0-4.0 [facility]2015-12-28 16:57:00 Test Item Value Reference Range Interpretation Comments B/C Ratio (test code = B/C Ratio) 10 - [facility]2015-12-28 16:57:00 Test Item Value Reference Range Interpretation Comments AGAP (test code = AGAP) 12.6 10.0-20.0 [place] [id number] 16:57:00 Test Item Value Reference Range Interpretation Comments S Preg (test code = S Negative *NA*(08/26/15 Preg) 10:57 AM) [facility] HospitalMjhkhgaDQABGEQFHG6144-92-85 16:57:00 Test Item Value Reference Range Interpretation Comments Eosinophils # (test code 0.4 See_Comment [A utomated message] The = Eosinophils #) system whic h generated this result tra nsmitted reference range : <=0.5. The reference r kat was not used to int erpret this result as normal/abnormal . [facility] HospitalYniivkzOSNUADNLUN2349-98-67 16:57:00 Test Item Value Reference Range Interpretation Comments Microcyte (test code = 1+ *ABN*(08/26/15 Microcyte) 10:57 AM) [facility] HospitalGsidzvqRXAVIEIIRM6770-36-95 16:57:00 Test Item Value Reference Range Interpretation Comments Basophils # (test code 0.1 See_Comment [Aut omated message] The = Basophils #) system which generated this result tra nsmitted reference range : <=0.2. The reference r kat was not used to int erpret this result as normal/abnormal . [facility] HospitalPcexedsNCPIXECKKV6606-06-59 16:57:00 Test Item Value Reference Range Interpretation Comments Monocytes (test code = Monocytes) 8.6 2.0-12.0 [facility] HospitalMggoecfRRWZZCBLQM2033-93-23 16:57:00 Test Item Value Reference Range Interpretation Comments Lymphocytes (test code = Lymphocytes) 40.6 20.0-40.0 [facility] HospitalPshgpxqTQUQRLWYNG4818-95-69 16:57:00 Test Item Value Reference Range Interpretation Comments Eosinophils (test code = 5.0 See_Comment [A utomated message] The Eosinophils) system which ge nerated this result tra nsmitted reference range : <=4.0. The reference r kat was not used to int erpret this result as normal/abnormal . [facility] HospitalEmvdjenRXJQKSIPPM8699-81-37 16:57:00 Test Item Value Reference Range Interpretation Comments Segs (test code = Segs) 44.8 45.0-75.0 [facility] HospitalEaksjrdFICESGLYVL1871-46-46 16:57:00 Test Item Value Reference Range Interpretation Comments Basophils (test code = 1.0 See_Comment [Aut omated message] The Basophils) system which ge nerated this result tra nsmitted reference range : <=1.0. The reference r kat was not used to int erpret this result as normal/abnormal . [facility] HospitalEkswvfsQZJNOYBCHG3398-74-66 16:57:00 Test Item Value Reference Range Interpretation Comments Segs-Bands # (test code = Segs-Bands #) 3.3 1.5-8.1 [facility] HospitalKfxnngqIHASEEUBFI7971-26-18 16:57:00 Test Item Value Reference Range Interpretation Comments Monocytes # (test code 0.6 See_Comment [Aut omated message] The = Monocytes #) system which generated this result tra nsmitted reference range : <=0.8. The reference r kat was not used to int erpret this result as normal/abnormal . [facility] HospitalPfywhpzWCPTROBFEC8383-57-73 16:57:00 Test Item Value Reference Range Interpretation Comments Lymphocytes # (test code = Lymphocytes 3.0 1.0-5.5 #) [facility] HospitalGxuqyjjPHEUIJZGOS3375-73-87 16:57:00 Test Item Value Reference Range Interpretation Comments PT (test code = PT) 14.0 s 12.0-14.7 [facility] HospitalXuumyxhTPZUKQBKWW5712-02-03 16:57:00 Test Item Value Reference Range Interpretation Comments INR (test code = INR) 1.05 0.85-1.17 [facility] HospitalNpoqdtbXCWUURRRQW0828-01-93 16:57:00 Test Item Value Reference Range Interpretation Comments PTT (test code = PTT) 30.3 s 22.9-35.8 [facility] HospitalOxbfypcSYOXXXLWBY7423-27-80 16:57:00 Test Item Value Reference Range Interpretation Comments MPV (test code = MPV) 8.9 7.4-10.4 [place] 543935-12-28 16:57:00 Test Item Value Reference Range Interpretation Comments RDW (test code = RDW) 15.8 11.5-14.5 [place] 543935-12-28 16:57:00 Test Item Value Reference Range Interpretation Comments Platelet (test code = Platelet) 271 133-450 [facility] HospitalGpwjaixZNEWORUVGE8158-48-78 16:57:00 Test Item Value Reference Range Interpretation Comments WBC (test code = WBC) 7.3 3.7-10.4 [facility]2015-12-28 16:57:00 Test Item Value Reference Range Interpretation Comments eGFR (test code = eGFR) 86 [facility]2015-12-28 16:57:00 Test Item Value Reference Range Interpretation Comments Potassium Lvl (test code = Potassium 3.6 3.5-5.1 Lvl) [facility]2015-12-28 16:57:00 Test Item Value Reference Range Interpretation Comments CO2 (test code = CO2) 27 24-32 [place] 842925-12-28 16:57:00 Test Item Value Reference Range Interpretation Comments Chloride Lvl (test code = Chloride Lvl) 103 95-109 [facility]2015-12-28 16:57:00 Test Item Value Reference Range Interpretation Comments Calcium Lvl (test code = Calcium Lvl) 9.4 8.5-10.5 [facility]2015-12-28 16:57:00 Test Item Value Reference Range Interpretation Comments AST (test code = AST) 16 See_Comment [Auto mated message] The system which ge nerated this result transmit arvind reference range : <=37. The reference range was not used to interpr et this result as mario l/abnormal. [facility] HospitalKnveptvBFQBYXBEHV3344-73-55 16:57:00 Test Item Value Reference Range Interpretation Comments RBC (test code = RBC) 5.14 4.20-5.40 [facility]2015-12-28 16:57:00 Test Item Value Reference Range Interpretation Comments ALT (test code = ALT) 43 See_Comment [Auto mated message] The system which ge nerated this result transmit arvind reference range : <=65. The reference range was not used to interpr et this result as mario l/abnormal. [facility]2015-12-28 16:57:00 Test Item Value Reference Range Interpretation Comments Alk Phos (test code = Alk Phos) 97 39-136 [facility]2015-12-28 16:57:00 Test Item Value Reference Range Interpretation Comments Albumin Lvl (test code = Albumin Lvl) 3.6 3.5-5.0 [facility]2015-12-28 16:57:00 Test Item Value Reference Range Interpretation Comments Total Protein (test code = Total 7.3 6.4-8.4 Protein) [facility]2015-12-28 16:57:00 Test Item Value Reference Range Interpretation Comments Bili Total (test code = Bili Total) 0.4 0.2-1.3 [facility]2015-12-28 16:57:00 Test Item Value Reference Range Interpretation Comments Glucose Lvl (test code = Glucose Lvl) 95 70-99 [facility]2015-12-28 16:57:00 Test Item Value Reference Range Interpretation Comments Creatinine Lvl (test code = Creatinine 0.93 0.50-1.40 Lvl) [facility]2015-12-28 16:57:00 Test Item Value Reference Range Interpretation Comments BUN (test code = BUN) 9 7-22 [facility]2015-12-28 16:57:00 Test Item Value Reference Range Interpretation Comments Sodium Lvl (test code = Sodium Lvl) 139 135-145 [facility]2015-12-28 16:57:00 Test Item Value Reference Range Interpretation Comments A/G Ratio (test code = A/G Ratio) 1.0 0.7-1.6 [facility] HospitalDhrtavaLIMRNTRWTP7219-70-41 16:57:00 Test Item Value Reference Range Interpretation Comments MCV (test code = MCV) 77.9 80.0-98.0 [facility]2015-12-28 16:57:00 Test Item Value Reference Range Interpretation Comments Globulin (test code = Globulin) 3.7 2.0-4.0 [facility]2015-12-28 16:57:00 Test Item Value Reference Range Interpretation Comments B/C Ratio (test code = B/C Ratio) 10 6-25 [facility]2015-12-28 16:57:00 Test Item Value Reference Range Interpretation Comments AGAP (test code = AGAP) 12.6 10.0-20.0 [place] 661775-12-28 16:57:00 Test Item Value Reference Range Interpretation Comments S Preg (test code = S Negative *NA*(08/26/15 Preg) 10:57 AM) [facility] HospitalKbiestyTQATVSGDWM2983-14-05 16:57:00 Test Item Value Reference Range Interpretation Comments Eosinophils # (test code 0.4 See_Comment [A utomated message] The = Eosinophils #) system [facility] h generated this result tra nsmitted reference range : <=0.5. The reference r kat was not used to int erpret this result as normal/abnormal . [facility]AktfickEELLOCOFIG1618-90-32 16:57:00 Test Item Value Reference Range Interpretation Comments Microcyte (test code = 1+ *ABN*(08/26/15 Microcyte) 10:57 AM) [facility] HospitalIlkwvnwFJZFNORLHE4971-60-82 16:57:00 Test Item Value Reference Range Interpretation Comments Basophils # (test code 0.1 See_Comment [Aut omated message] The = Basophils #) system which generated this result tra nsmitted reference range : <=0.2. The reference r kat was not used to int erpret this result as normal/abnormal . [facility] HospitalYitqtzoMDKQQXUZOJ9128-22-52 16:57:00 Test Item Value Reference Range Interpretation Comments Monocytes (test code = Monocytes) 8.6 2.0-12.0 [facility] HospitalUjuicxpJDHLEAMRCY4042-64-33 16:57:00 Test Item Value Reference Range Interpretation Comments Lymphocytes (test code = Lymphocytes) 40.6 20.0-40.0 [facility] HospitalJykbfvxVJRUTRLYWP3733-49-18 16:57:00 Test Item Value Reference Range Interpretation Comments Eosinophils (test code = 5.0 See_Comment [A utomated message] The Eosinophils) system which ge nerated this result tra nsmitted reference range : <=4.0. The reference r kat was not used to int erpret this result as normal/abnormal . [facility] HospitalXppvxtxKWRYXXRIJY5706-87-30 16:57:00 Test Item Value Reference Range Interpretation Comments MCH (test code = MCH) 23.9 pg 27.0-31.0 [facility] HospitalKjepdywTNQQYBKSWO3384-01-36 16:57:00 Test Item Value Reference Range Interpretation Comments Segs (test code = Segs) 44.8 45.0-75.0 [facility] HospitalXbjbrdtZDWNJFTLMU4565-30-60 16:57:00 Test Item Value Reference Range Interpretation Comments Basophils (test code = 1.0 See_Comment [Aut omated message] The Basophils) system which ge nerated this result tra nsmitted reference range : <=1.0. The reference r kat was not used to int erpret this result as normal/abnormal . [facility] HospitalSgtddxtNXTLZATVKL7882-47-55 16:57:00 Test Item Value Reference Range Interpretation Comments Segs-Bands # (test code = Segs-Bands #) 3.3 1.5-8.1 [facility] HospitalPiptflgBVCBEYAJWS1638-36-02 16:57:00 Test Item Value Reference Range Interpretation Comments Monocytes # (test code 0.6 See_Comment [Aut omated message] The = Monocytes #) system which generated this result tra nsmitted reference range : <=0.8. The reference r kat was not used to int erpret this result as normal/abnormal . [facility] HospitalBamxndqUECMYVHMQN8122-97-90 16:57:00 Test Item Value Reference Range Interpretation Comments Lymphocytes # (test code = Lymphocytes 3.0 1.0-5.5 #) [facility] HospitalAnmpbjmPNMETFHGJG8625-31-84 16:57:00 Test Item Value Reference Range Interpretation Comments PT (test code = PT) 14.0 s 12.0-14.7 [facility] HospitalZleumpmJEDCHEGOGI9270-66-29 16:57:00 Test Item Value Reference Range Interpretation Comments INR (test code = INR) 1.05 0.85-1.17 [facility] HospitalGehybuqHVRFWEBYGR4249-08-23 16:57:00 Test Item Value Reference Range Interpretation Comments PTT (test code = PTT) 30.3 s 22.9-35.8 [facility] HospitalMixabwgXKDGBNLHJX0029-29-09 16:57:00 Test Item Value Reference Range Interpretation Comments MPV (test code = MPV) 8.9 7.4-10.4 [facility] HospitalNubfaagPYKFIWVGBP1519-90-36 16:57:00 Test Item Value Reference Range Interpretation Comments RDW (test code = RDW) 15.8 11.5-14.5 [facility] HospitalAukimkqJDBIPSLTNH2847-90-39 16:57:00 Test Item Value Reference Range Interpretation Comments MCHC (test code = MCHC) 30.7 32.0-36.0 [facility] HospitalVmtwoeoEVXINIWLOS8488-81-09 16:57:00 Test Item Value Reference Range Interpretation Comments Platelet (test code = Platelet) 271 133-450 [facility] HospitalCcvpqwkKAAFSAZXWB6780-29-23 16:57:00 Test Item Value Reference Range Interpretation Comments WBC (test code = WBC) 7.3 3.7-10.4 [facility] HospitalLelforzYDKJALJJGT6437-23-33 16:57:00 Test Item Value Reference Range Interpretation Comments RBC (test code = RBC) 5.14 4.20-5.40 [facility] HospitalOvdjjfjCYSVHIZPXP7474-69-37 16:57:00 Test Item Value Reference Range Interpretation Comments MCV (test code = MCV) 77.9 80.0-98.0 [facility] HospitalGebqudwSMFZVYRBQQ5284-24-68 16:57:00 Test Item Value Reference Range Interpretation Comments MCH (test code = MCH) 23.9 pg 27.0-31.0 [facility] HospitalIgykkgjFVJHLULLPI4736-10-15 16:57:00 Test Item Value Reference Range Interpretation Comments MCHC (test code = MCHC) 30.7 32.0-36.0 [facility] HospitalMjofsytJHFHTJHJHO5627-41-34 16:57:00 Test Item Value Reference Range Interpretation Comments Hct (test code = Hct) 40.1 36.0-48.0 [facility] HospitalQfypthdMQXGLSLUSY4525-72-19 16:57:00 Test Item Value Reference Range Interpretation Comments Hgb (test code = Hgb) 12.3 12.0-16.0 [facility] HospitalLfwpmhwPAVIIVYMGM2162-30-55 16:57:00 Test Item Value Reference Range Interpretation Comments Hct (test code = Hct) 40.1 36.0-48.0 [address]12-28 16:57:00 Test Item Value Reference Range Interpretation Comments Hgb (test code = Hgb) 12.3 12.0-16.0 [facility]2015-12-28 16:57:00 Test Item Value Reference Range Interpretation Comments eGFR (test code = eGFR) 86 [facility]2015-12-28 16:57:00 Test Item Value Reference Range Interpretation Comments Potassium Lvl (test code = Potassium 3.6 3.5-5.1 Lvl) [facility]2015-12-28 16:57:00 Test Item Value Reference Range Interpretation Comments CO2 (test code = CO2) 27 24-32 [facility]2015-12-28 16:57:00 Test Item Value Reference Range Interpretation Comments Chloride Lvl (test code = Chloride Lvl) 103 95-109 [facility]2015-12-28 16:57:00 Test Item Value Reference Range Interpretation Comments Calcium Lvl (test code = Calcium Lvl) 9.4 8.5-10.5 [facility]2015-12-28 16:57:00 Test Item Value Reference Range Interpretation Comments AST (test code = AST) 16 See_Comment [Auto mated message] The system which ge nerated this result transmit arvind reference range : <=37. The reference range was not used to interpr et this result as mario l/abnormal. [facility]2015-12-28 16:57:00 Test Item Value Reference Range Interpretation Comments ALT (test code = ALT) 43 See_Comment [Auto mated message] The system which ge nerated this result transmit arvind reference range : <=65. The reference range was not used to interpr et this result as mario l/abnormal. [facility]2015-12-28 16:57:00 Test Item Value Reference Range Interpretation Comments Alk Phos (test code = Alk Phos) 97 39-136 [facility]2015-12-28 16:57:00 Test Item Value Reference Range Interpretation Comments Albumin Lvl (test code = Albumin Lvl) 3.6 3.5-5.0 [facility]2015-12-28 16:57:00 Test Item Value Reference Range Interpretation Comments Total Protein (test code = Total 7.3 6.4-8.4 Protein) [facility]2015-12-28 16:57:00 Test Item Value Reference Range Interpretation Comments Bili Total (test code = Bili Total) 0.4 0.2-1.3 [facility]2015-12-28 16:57:00 Test Item Value Reference Range Interpretation Comments Glucose Lvl (test code = Glucose Lvl) 95 70-99 [facility]2015-12-28 16:57:00 Test Item Value Reference Range Interpretation Comments Creatinine Lvl (test code = Creatinine 0.93 0.50-1.40 Lvl) [facility]2015-12-28 16:57:00 Test Item Value Reference Range Interpretation Comments BUN (test code = BUN) 9 7-22 [facility]2015-12-28 16:57:00 Test Item Value Reference Range Interpretation Comments Sodium Lvl (test code = Sodium Lvl) 139 135-145 [facility]2015-12-28 16:57:00 Test Item Value Reference Range Interpretation Comments A/G Ratio (test code = A/G Ratio) 1.0 0.7-1.6 [facility]2015-12-28 16:57:00 Test Item Value Reference Range Interpretation Comments Globulin (test code = Globulin) 3.7 2.0-4.0 [facility]2015-12-28 16:57:00 Test Item Value Reference Range Interpretation Comments B/C Ratio (test code = B/C Ratio) 10 -25 [facility]2015-12-28 16:57:00 Test Item Value Reference Range Interpretation Comments AGAP (test code = AGAP) 12.6 10.0-20.0 [facility]gjxhpyWJZTVZQSIESFN4844-16-08 16:57:00 Test Item Value Reference Range Interpretation Comments S Preg (test code = S Negative *NA*(08/26/15 Preg) 10:57 AM) [facility]DYWPPTSIWJ7688[facility]79-[facility] 16:57:00 Test Item Value Reference Range Interpretation Comments Eosinophils # (test code 0.4 See_Comment [A utomated message] The = Eosinophils #) system whic h generated this result tra nsmitted reference range : <=0.5. The reference r kat was not used to int erpret this result as normal/abnormal . [facility]PsmsnevAVKYKEZRWX7242-74-90 16:57:00 Test Item Value Reference Range Interpretation Comments Microcyte (test code = 1+ *ABN*(08/26/15 Microcyte) 10:57 AM) [facility] HospitalAfhtvkaDQPBLLMHJI5099-41-47 16:57:00 Test Item Value Reference Range Interpretation Comments Basophils # (test code 0.1 See_Comment [Aut omated message] The = Basophils #) system which generated this result tra nsmitted reference range : <=0.2. The reference r kat was not used to int erpret this result as normal/abnormal . [facility] HospitalUxzeehrGIFUHSCSQP7050-97-35 16:57:00 Test Item Value Reference Range Interpretation Comments Monocytes (test code = Monocytes) 8.6 2.0-12.0 [facility] HospitalVzeeqkpORFVNRWNET3221-50-94 16:57:00 Test Item Value Reference Range Interpretation Comments Lymphocytes (test code = Lymphocytes) 40.6 20.0-40.0 [facility] HospitalRfhfnwhEZXYKSYIUQ3852-47-34 16:57:00 Test Item Value Reference Range Interpretation Comments Eosinophils (test code = 5.0 See_Comment [A utomated message] The Eosinophils) system which ge nerated this result tra nsmitted reference range : <=4.0. The reference r kat was not used to int erpret this result as normal/abnormal . [facility] HospitalZdehlrgNDILFGMRDN1061-74-24 16:57:00 Test Item Value Reference Range Interpretation Comments Segs (test code = Segs) 44.8 45.0-75.0 [facility] HospitalLvqbhenBCAQVDYLFG9816-80-21 16:57:00 Test Item Value Reference Range Interpretation Comments Basophils (test code = 1.0 See_Comment [Aut omated message] The Basophils) system which ge nerated this result tra nsmitted reference range : <=1.0. The reference r kat was not used to int erpret this result as normal/abnormal . [facility] HospitalRqisvroPFXNNKBUIH0217-04-83 16:57:00 Test Item Value Reference Range Interpretation Comments Segs-Bands # (test code = Segs-Bands #) 3.3 1.5-8.1 [facility] HospitalIzyxsrgJKHIPVCDRJ3684-69-66 16:57:00 Test Item Value Reference Range Interpretation Comments Monocytes # (test code 0.6 See_Comment [Aut omated message] The = Monocytes #) system which generated this result tra nsmitted reference range : <=0.8. The reference r kat was not used to int erpret this result as normal/abnormal . [facility] HospitalNhnaskuBLJCLCGAGY3928-17-97 16:57:00 Test Item Value Reference Range Interpretation Comments Lymphocytes # (test code = Lymphocytes 3.0 1.0-5.5 #) [facility] HospitalWphjgdfBIFPWSZXVK7835-36-65 16:57:00 Test Item Value Reference Range Interpretation Comments PT (test code = PT) 14.0 s 12.0-14.7 [facility] HospitalIwlbixiOJXQJDLPMM3748-42-04 16:57:00 Test Item Value Reference Range Interpretation Comments INR (test code = INR) 1.05 0.85-1.17 [facility] HospitalOdremekLOKONZIKBG0150-34-63 16:57:00 Test Item Value Reference Range Interpretation Comments PTT (test code = PTT) 30.3 s 22.9-35.8 [facility] HospitalDktftaaLTKZNMQIQH7559-70-08 16:57:00 Test Item Value Reference Range Interpretation Comments MPV (test code = MPV) 8.9 7.4-10.4 [facility] HospitalTiqbhixAAUJUXCKLH5601-31-38 16:57:00 Test Item Value Reference Range Interpretation Comments RDW (test code = RDW) 15.8 11.5-14.5 [facility] HospitalFecgrwoCCEKROZZSD5330-34-26 16:57:00 Test Item Value Reference Range Interpretation Comments Platelet (test code = Platelet) 271 133-450 [facility] HospitalChmndebCWSLQNJJJW8408-98-27 16:57:00 Test Item Value Reference Range Interpretation Comments WBC (test code = WBC) 7.3 3.7-10.4 [facility] HospitalFysrnniQXRWGDXOMK5060-85-79 16:57:00 Test Item Value Reference Range Interpretation Comments RBC (test code = RBC) 5.14 4.20-5.40 [facility] HospitalIzucevgQRVUABBNOD8529-55-45 16:57:00 Test Item Value Reference Range Interpretation Comments MCV (test code = MCV) 77.9 80.0-98.0 [facility] HospitalAoccrrjQJDLHOBKVY6982-62-35 16:57:00 Test Item Value Reference Range Interpretation Comments MCH (test code = MCH) 23.9 pg 27.0-31.0 [facility] HospitalBukznjiETOWEHMNPY2036-18-04 16:57:00 Test Item Value Reference Range Interpretation Comments MCHC (test code = MCHC) 30.7 32.0-36.0 [facility] HospitalXczlkbgSCHVTZOQGN8059-67-10 16:57:00 Test Item Value Reference Range Interpretation Comments Hct (test code = Hct) 40.1 36.0-48.0 [facility] HospitalDynqywkFSUGQKYHNR9425-82-75 16:57:00 Test Item Value Reference Range Interpretation Comments Hgb (test code = Hgb) 12.3 12.0-16.0 [facility]2015-12-28 16:57:00 Test Item Value Reference Range Interpretation Comments eGFR (test code = eGFR) 86 [facility]2015-12-28 16:57:00 Test Item Value Reference Range Interpretation Comments Potassium Lvl (test code = Potassium 3.6 3.5-5.1 Lvl) [facility]2015-12-28 16:57:00 Test Item Value Reference Range Interpretation Comments CO2 (test code = CO2) 27 24-32 [facility]2015-12-28 16:57:00 Test Item Value Reference Range Interpretation Comments Chloride Lvl (test code = Chloride Lvl) 103 95-109 [facility]2015-12-28 16:57:00 Test Item Value Reference Range Interpretation Comments Calcium Lvl (test code = Calcium Lvl) 9.4 8.5-10.5 [facility]2015-12-28 16:57:00 Test Item Value Reference Range Interpretation Comments AST (test code = AST) 16 See_Comment [Auto mated message] The system which ge nerated this result transmit arvind reference range : <=37. The reference range was not used to interpr et this result as mario l/abnormal. [facility]2015-12-28 16:57:00 Test Item Value Reference Range Interpretation Comments ALT (test code = ALT) 43 See_Comment [Auto mated message] The system which ge nerated this result transmit arvind reference range : <=65. The reference range was not used to interpr et this result as mario l/abnormal. [facility]2015-12-28 16:57:00 Test Item Value Reference Range Interpretation Comments Alk Phos (test code = Alk Phos) 97 39-136 [facility]2015-12-28 16:57:00 Test Item Value Reference Range Interpretation Comments Albumin Lvl (test code = Albumin Lvl) 3.6 3.5-5.0 [facility]2015-12-28 16:57:00 Test Item Value Reference Range Interpretation Comments Total Protein (test code = Total 7.3 6.4-8.4 Protein) [facility]2015-12-28 16:57:00 Test Item Value Reference Range Interpretation Comments Bili Total (test code = Bili Total) 0.4 0.2-1.3 [facility]2015-12-28 16:57:00 Test Item Value Reference Range Interpretation Comments Glucose Lvl (test code = Glucose Lvl) 95 70-99 [facility]2015-12-28 16:57:00 Test Item Value Reference Range Interpretation Comments Creatinine Lvl (test code = Creatinine 0.93 0.50-1.40 Lvl) [facility]2015-12-28 16:57:00 Test Item Value Reference Range Interpretation Comments BUN (test code = BUN) 9 - [facility]2015-12-28 16:57:00 Test Item Value Reference Range Interpretation Comments Sodium Lvl (test code = Sodium Lvl) 139 135-145 [facility]2015-12-28 16:57:00 Test Item Value Reference Range Interpretation Comments A/G Ratio (test code = A/G Ratio) 1.0 0.7-1.6 [facility]2015-12-28 16:57:00 Test Item Value Reference Range Interpretation Comments Globulin (test code = Globulin) 3.7 2.0-4.0 [facility]2015-12-28 16:57:00 Test Item Value Reference Range Interpretation Comments B/C Ratio (test code = B/C Ratio) 10 - [facility]2015-12-28 16:57:00 Test Item Value Reference Range Interpretation Comments AGAP (test code = AGAP) 12.6 10.0-20.0 [facility]leVwtztjpYNADMZFDONRWT5743-03-80 16:57:00 Test Item Value Reference Range Interpretation Comments S Preg (test code = S Negative *NA*(08/26/15 Preg) 10:57 AM) [facility]FktodjoKVUZPKSIZY1502-50-87 16:57:00 Test Item Value Reference Range Interpretation Comments Eosinophils # (test code 0.4 See_Comment [A utomated message] The = Eosinophils #) system whic h generated this result tra nsmitted reference range : <=0.5. The reference r kat was not used to int erpret this result as normal/abnormal . [facility] HospitalRvtnhopMWCAPHLQAP4680-37-76 16:57:00 Test Item Value Reference Range Interpretation Comments Microcyte (test code = 1+ *ABN*(08/26/15 Microcyte) 10:57 AM) [facility] HospitalBndvxawLEPRYLUMQF1761-36-16 16:57:00 Test Item Value Reference Range Interpretation Comments Basophils # (test code 0.1 See_Comment [Aut omated message] The = Basophils #) system which generated this result tra nsmitted reference range : <=0.2. The reference r kat was not used to int erpret this result as normal/abnormal . [facility] HospitalTaekexiGTDUZIAWOY1047-01-56 16:57:00 Test Item Value Reference Range Interpretation Comments Monocytes (test code = Monocytes) 8.6 2.0-12.0 [facility] HospitalQdwtlusXURJLSNTGU0707-47-83 16:57:00 Test Item Value Reference Range Interpretation Comments Lymphocytes (test code = Lymphocytes) 40.6 20.0-40.0 [facility] HospitalFcynfypTURKJTPBWC1503-55-22 16:57:00 Test Item Value Reference Range Interpretation Comments Eosinophils (test code = 5.0 See_Comment [A utomated message] The Eosinophils) system which ge nerated this result tra nsmitted reference range : <=4.0. The reference r kta was not used to int erpret this result as normal/abnormal . [facility] HospitalNebvoonYFQAOTWVIX7817-82-99 16:57:00 Test Item Value Reference Range Interpretation Comments Segs (test code = Segs) 44.8 45.0-75.0 [facility] HospitalMxcnbokNNGYVWDTOC7954-86-56 16:57:00 Test Item Value Reference Range Interpretation Comments Basophils (test code = 1.0 See_Comment [Aut omated message] The Basophils) system which ge nerated this result tra nsmitted reference range : <=1.0. The reference r kat was not used to int erpret this result as normal/abnormal . [facility] HospitalZvorykuVREBHONZZA6196-55-70 16:57:00 Test Item Value Reference Range Interpretation Comments Segs-Bands # (test code = Segs-Bands #) 3.3 1.5-8.1 [facility] HospitalCtaauyrUTTCWFAOAD9310-92-29 16:57:00 Test Item Value Reference Range Interpretation Comments Monocytes # (test code 0.6 See_Comment [Aut omated message] The = Monocytes #) system which generated this result tra nsmitted reference range : <=0.8. The reference r kat was not used to int erpret this result as normal/abnormal . [facility] HospitalUwjduqwAJFGCXWCTI2680-50-00 16:57:00 Test Item Value Reference Range Interpretation Comments Lymphocytes # (test code = Lymphocytes 3.0 1.0-5.5 #) [facility] HospitalIotglulKAHAFGPBBT1238-38-31 16:57:00 Test Item Value Reference Range Interpretation Comments PT (test code = PT) 14.0 s 12.0-14.7 [facility] HospitalDbhbwbdNPZCHDMDKI1830-44-83 16:57:00 Test Item Value Reference Range Interpretation Comments INR (test code = INR) 1.05 0.85-1.17 [facility] HospitalZhljeumEDJUKBQGOE8225-67-25 16:57:00 Test Item Value Reference Range Interpretation Comments PTT (test code = PTT) 30.3 s 22.9-35.8 [facility] HospitalKmswfveZGWKXOLZXR2143-91-60 16:57:00 Test Item Value Reference Range Interpretation Comments MPV (test code = MPV) 8.9 7.4-10.4 [facility] HospitalUgtwlyaKUWYJEDAWW0596-35-45 16:57:00 Test Item Value Reference Range Interpretation Comments RDW (test code = RDW) 15.8 11.5-14.5 [facility] HospitalLfngssrMZCKKXJMSS0334-45-62 16:57:00 Test Item Value Reference Range Interpretation Comments Platelet (test code = Platelet) 271 133-450 [facility] HospitalMwoxsidRHSZPNMDPX8650-91-36 16:57:00 Test Item Value Reference Range Interpretation Comments WBC (test code = WBC) 7.3 3.7-10.4 [facility] HospitalDvptndmGHBSEKVUHH8303-97-24 16:57:00 Test Item Value Reference Range Interpretation Comments RBC (test code = RBC) 5.14 4.20-5.40 [facility] HospitalQqjzcsnFTZDPPUHOQ5461-49-93 16:57:00 Test Item Value Reference Range Interpretation Comments MCV (test code = MCV) 77.9 80.0-98.0 [facility] HospitalPfvsmyvHBFLIBDBSH4249-02-88 16:57:00 Test Item Value Reference Range Interpretation Comments MCH (test code = MCH) 23.9 pg 27.0-31.0 [facility] HospitalRtuanpwAUGRDPDUSA7991-95-37 16:57:00 Test Item Value Reference Range Interpretation Comments MCHC (test code = MCHC) 30.7 32.0-36.0 [facility] HospitalPgljtvvZIVKXYXICH9344-87-28 16:57:00 Test Item Value Reference Range Interpretation Comments Hct (test code = Hct) 40.1 36.0-48.0 [facility] HospitalLczpkrbBGWSHBEOXZ4421-32-81 16:57:00 Test Item Value Reference Range Interpretation Comments Hgb (test code = Hgb) 12.3 12.0-16.0 [facility]2015-12-18 10:58:00 Test Item Value Reference Range Interpretation Comments eGFR (test code = eGFR) 126 [facility]2015-12-18 10:58:00 Test Item Value Reference Range Interpretation Comments AST (test code = AST) 29 See_Comment [Auto mated message] The system which ge nerated this result transmit arvind reference range : <=37. The reference range was not used to interpr et this result as mario l/abnormal. [facility]2015-12-18 10:58:00 Test Item Value Reference Range Interpretation Comments Alk Phos (test code = Alk Phos) 86 39-136 [facility]2015-12-18 10:58:00 Test Item Value Reference Range Interpretation Comments Bili Total (test code = Bili Total) 0.3 0.2-1.3 [facility]2015-12-18 10:58:00 Test Item Value Reference Range Interpretation Comments ALT (test code = ALT) 50 See_Comment [Auto mated message] The system which ge nerated this result transmit arvind reference range : <=65. The reference range was not used to interpr et this result as mario l/abnormal. [facility]2015-12-18 10:58:00 Test Item Value Reference Range Interpretation Comments Sodium Lvl (test code = Sodium Lvl) 136 135-145 [facility]2015-12-18 10:58:00 Test Item Value Reference Range Interpretation Comments Potassium Lvl (test code = Potassium 4.0 3.5-5.1 Lvl) [facility]2015-12-18 10:58:00 Test Item Value Reference Range Interpretation Comments Creatinine Lvl (test code = Creatinine 0.62 0.50-1.40 Lvl) [facility]2015-12-18 10:58:00 Test Item Value Reference Range Interpretation Comments Glucose Lvl (test code = Glucose Lvl) 101 70-99 [facility]2015-12-18 10:58:00 Test Item Value Reference Range Interpretation Comments BUN (test code = BUN) 5 7-22 [facility]2015-12-18 10:58:00 Test Item Value Reference Range Interpretation Comments Total Protein (test code = Total 5.8 6.4-8.4 Protein) [facility]2015-12-18 10:58:00 Test Item Value Reference Range Interpretation Comments Albumin Lvl (test code = Albumin Lvl) 3.2 3.5-5.0 [facility]2015-12-18 10:58:00 Test Item Value Reference Range Interpretation Comments Chloride Lvl (test code = Chloride Lvl) 100 95-109 [facility]2015-12-18 10:58:00 Test Item Value Reference Range Interpretation Comments Calcium Lvl (test code = Calcium Lvl) 8.6 8.5-10.5 [facility]2015-12-18 10:58:00 Test Item Value Reference Range Interpretation Comments CO2 (test code = CO2) 27 24-32 [facility]2015-12-18 10:58:00 Test Item Value Reference Range Interpretation Comments B/C Ratio (test code = B/C Ratio) 8 6-25 [facility]2015-12-18 10:58:00 Test Item Value Reference Range Interpretation Comments Globulin (test code = Globulin) 2.6 2.0-4.0 [facility]2015-12-18 10:58:00 Test Item Value Reference Range Interpretation Comments A/G Ratio (test code = A/G Ratio) 1.2 0.7-1.6 [facility]2015-12-18 10:58:00 Test Item Value Reference Range Interpretation Comments AGAP (test code = AGAP) 13.0 10.0-20.0 [facility]ds[facility]ftBWPQGEECCK5770-81-87 10:58:00 Test Item Value Reference Range Interpretation Comments Segs (test code = Segs) 74.2 45.0-75.0 [facility] HospitalQqzpwewAYGNHETDTB2973-62-47 10:58:00 Test Item Value Reference Range Interpretation Comments Lymphocytes (test code = Lymphocytes) 18.3 20.0-40.0 [facility] HospitalNvqgufwVCAQXZQLWG7112-96-67 10:58:00 Test Item Value Reference Range Interpretation Comments Monocytes (test code = Monocytes) 7.0 2.0-12.0 [facility] HospitalZkiphrgVMNADHBZPK2033-78-80 10:58:00 Test Item Value Reference Range Interpretation Comments Basophils (test code = 0.3 See_Comment [Aut omated message] The Basophils) system which ge nerated this result tra nsmitted reference range : <=1.0. The reference r kat was not used to int erpret this result as normal/abnormal . [facility] HospitalDuxygaaRJXQXDBACN0582-64-59 10:58:00 Test Item Value Reference Range Interpretation Comments Segs-Bands # (test code = Segs-Bands #) 8.1 1.5-8.1 [facility] HospitalOysawugVMFOXGMSTO3791-70-45 10:58:00 Test Item Value Reference Range Interpretation Comments Eosinophils (test code = 0.2 See_Comment [A utomated message] The Eosinophils) system which ge nerated this result tra nsmitted reference range : <=4.0. The reference r kat was not used to int erpret this result as normal/abnormal . [facility] HospitalDgquchoBKOWLLNEJO7230-14-22 10:58:00 Test Item Value Reference Range Interpretation Comments Monocytes # (test code 0.8 See_Comment [Aut omated message] The = Monocytes #) system which generated this result tra nsmitted reference range : <=0.8. The reference r kat was not used to int erpret this result as normal/abnormal . [facility] HospitalDopskgkPSYFRGUCHU2832-45-59 10:58:00 Test Item Value Reference Range Interpretation Comments Lymphocytes # (test code = Lymphocytes 2.0 1.0-5.5 #) [facility] HospitalKpvloetUZBYMOYGQS2114-91-21 10:58:00 Test Item Value Reference Range Interpretation Comments Microcyte (test code = 1+ *ABN*(08/16/15 Microcyte) 4:58 AM) [facility] HospitalXvpkbycLQBJXEZMOM6980-99-57 10:58:00 Test Item Value Reference Range Interpretation Comments MPV (test code = MPV) 8.9 7.4-10.4 [facility] HospitalQrjoyuhWPAGBWSLUG5370-94-12 10:58:00 Test Item Value Reference Range Interpretation Comments MCV (test code = MCV) 77.3 80.0-98.0 [facility] HospitalFocrdhhWYNLGVQCQX7250-05-29 10:58:00 Test Item Value Reference Range Interpretation Comments Hgb (test code = Hgb) 11.9 12.0-16.0 [facility] HospitalAymyjdoOWCWQVCJUA4001-80-11 10:58:00 Test Item Value Reference Range Interpretation Comments Hct (test code = Hct) 37.5 36.0-48.0 [facility] HospitalLocamihDLYCETGQZV8862-69-00 10:58:00 Test Item Value Reference Range Interpretation Comments MCH (test code = MCH) 24.5 pg 27.0-31.0 [facility] HospitalYciatwnXNGSLUHCMV6820-64-21 10:58:00 Test Item Value Reference Range Interpretation Comments RBC (test code = RBC) 4.85 4.20-5.40 [facility] HospitalXxoqllzWGPJDSIUUH4221-45-87 10:58:00 Test Item Value Reference Range Interpretation Comments WBC (test code = WBC) 10.9 3.7-10.4 [facility] HospitalUsqiinjXUSOOQGPQV9256-31-95 10:58:00 Test Item Value Reference Range Interpretation Comments RDW (test code = RDW) 15.9 11.5-14.5 [facility] HospitalFzrbccdFPLUVYXCKS2948-92-49 10:58:00 Test Item Value Reference Range Interpretation Comments MCHC (test code = MCHC) 31.7 32.0-36.0 [facility] HospitalAzxbkroBJRKHAALJX1060-00-26 10:58:00 Test Item Value Reference Range Interpretation Comments Platelet (test code = Platelet) 242 133-[address] [facility] BUZVU3707-00-67 10:58:00 Test Item Value Reference Range Interpretation Comments eGFR (test code = eGFR) [address] [facility] IRXYE0498-82-42 10:58:00 Test Item Value Reference Range Interpretation Comments AST (test code = AST) 29 See_Comment [Auto mated message] The system which ge nerated this result transmit arvind reference range : <=37. The reference range was not used to interpr et this result as mario l/abnormal. [facility]2015-12-18 10:58:00 Test Item Value Reference Range Interpretation Comments Alk Phos (test code = Alk Phos) 86 39-136 [facility]2015-12-18 10:58:00 Test Item Value Reference Range Interpretation Comments Bili Total (test code = Bili Total) 0.3 0.2-1.3 [facility]2015-12-18 10:58:00 Test Item Value Reference Range Interpretation Comments ALT (test code = ALT) 50 See_Comment [Auto mated message] The system which ge nerated this result transmit arvind reference range : <=65. The reference range was not used to interpr et this result as mario l/abnormal. [facility]2015-12-18 10:58:00 Test Item Value Reference Range Interpretation Comments Sodium Lvl (test code = Sodium Lvl) 136 135-145 [facility]2015-12-18 10:58:00 Test Item Value Reference Range Interpretation Comments Potassium Lvl (test code = Potassium 4.0 3.5-5.1 Lvl) [facility]2015-12-18 10:58:00 Test Item Value Reference Range Interpretation Comments Creatinine Lvl (test code = Creatinine 0.62 0.50-1.40 Lvl) [facility]2015-12-18 10:58:00 Test Item Value Reference Range Interpretation Comments Glucose Lvl (test code = Glucose Lvl) 101 70-99 [facility]2015-12-18 10:58:00 Test Item Value Reference Range Interpretation Comments BUN (test code = BUN) 5 7-22 [facility]2015-12-18 10:58:00 Test Item Value Reference Range Interpretation Comments Total Protein (test code = Total 5.8 6.4-8.4 Protein) [facility]2015-12-18 10:58:00 Test Item Value Reference Range Interpretation Comments Albumin Lvl (test code = Albumin Lvl) 3.2 3.5-5.0 [facility]2015-12-18 10:58:00 Test Item Value Reference Range Interpretation Comments Chloride Lvl (test code = Chloride Lvl) 100 95-109 [facility]2015-12-18 10:58:00 Test Item Value Reference Range Interpretation Comments Calcium Lvl (test code = Calcium Lvl) 8.6 8.5-10.5 [facility]2015-12-18 10:58:00 Test Item Value Reference Range Interpretation Comments CO2 (test code = CO2) 27 24-32 [facility]2015-12-18 10:58:00 Test Item Value Reference Range Interpretation Comments B/C Ratio (test code = B/C Ratio) 8 6-25 [facility]2015-12-18 10:58:00 Test Item Value Reference Range Interpretation Comments Globulin (test code = Globulin) 2.6 2.0-4.0 [facility]2015-12-18 10:58:00 Test Item Value Reference Range Interpretation Comments A/G Ratio (test code = A/G Ratio) 1.2 0.7-1.6 [facility]2015-12-18 10:58:00 Test Item Value Reference Range Interpretation Comments AGAP (test code = AGAP) 13.0 10.0-20.0 [facility]PcglsvoYRCJRBXYWO5513-66-49 10:58:00 Test Item Value Reference Range Interpretation Comments Segs (test code = Segs) 74.2 45.0-75.0 [facility] HospitalTfliulwFWBCONULWY9596-82-44 10:58:00 Test Item Value Reference Range Interpretation Comments Lymphocytes (test code = Lymphocytes) 18.3 20.0-40.0 [facility] HospitalTllgnupGHACCICGKK9077-67-65 10:58:00 Test Item Value Reference Range Interpretation Comments Monocytes (test code = Monocytes) 7.0 2.0-12.0 [facility] HospitalAkvlptzULPBGTZFYP2504-85-26 10:58:00 Test Item Value Reference Range Interpretation Comments Basophils (test code = 0.3 See_Comment [Aut omated message] The Basophils) system which ge nerated this result tra nsmitted reference range : <=1.0. The reference r kat was not used to int erpret this result as normal/abnormal . [facility] HospitalSrlvgscIHNFZGQBOZ8647-57-34 10:58:00 Test Item Value Reference Range Interpretation Comments Segs-Bands # (test code = Segs-Bands #) 8.1 1.5-8.1 [facility] HospitalPwureheEPYZEOSYUG3841-43-35 10:58:00 Test Item Value Reference Range Interpretation Comments Eosinophils (test code = 0.2 See_Comment [A utomated message] The Eosinophils) system which ge nerated this result tra nsmitted reference range : <=4.0. The reference r kat was not used to int erpret this result as normal/abnormal . [facility] HospitalMyyonnrLTHUJIIBVS2638-25-04 10:58:00 Test Item Value Reference Range Interpretation Comments Monocytes # (test code 0.8 See_Comment [Aut omated message] The = Monocytes #) system which generated this result tra nsmitted reference range : <=0.8. The reference r kat was not used to int erpret this result as normal/abnormal . [facility] HospitalBymkabbIKWCMFVSJN8856-31-25 10:58:00 Test Item Value Reference Range Interpretation Comments Lymphocytes # (test code = Lymphocytes 2.0 1.0-5.5 #) [facility] HospitalAwwmzciYAALBHARMM6110-09-13 10:58:00 Test Item Value Reference Range Interpretation Comments Microcyte (test code = 1+ *ABN*(08/16/15 Microcyte) 4:58 AM) [facility] HospitalPbvcdtzJSXQNUZPLA3813-03-92 10:58:00 Test Item Value Reference Range Interpretation Comments MPV (test code = MPV) 8.9 7.4-10.4 [facility] HospitalWskrqxtURNNKRXPOJ8339-48-91 10:58:00 Test Item Value Reference Range Interpretation Comments MCV (test code = MCV) 77.3 80.0-98.0 [facility] HospitalRgqllnbWVEWAFBXTR2970-59-12 10:58:00 Test Item Value Reference Range Interpretation Comments Hgb (test code = Hgb) 11.9 12.0-16.0 [facility] HospitalAjstjaeGAPKGFFCSM7156-98-13 10:58:00 Test Item Value Reference Range Interpretation Comments Hct (test code = Hct) 37.5 36.0-48.0 [facility] HospitalKswxjziNZSJACFJBC9273-91-39 10:58:00 Test Item Value Reference Range Interpretation Comments MCH (test code = MCH) 24.5 pg 27.0-31.0 [facility] HospitalPcwxgkqSBNCHMSGIL8925-36-13 10:58:00 Test Item Value Reference Range Interpretation Comments RBC (test code = RBC) 4.85 4.20-5.40 [facility] HospitalTzjzyhzPJZYMBRYEG0710-99-93 10:58:00 Test Item Value Reference Range Interpretation Comments WBC (test code = WBC) 10.9 3.7-10.4 [facility] HospitalBavtemyBNKHDXGIMV1149-24-71 10:58:00 Test Item Value Reference Range Interpretation Comments RDW (test code = RDW) 15.9 11.5-14.5 [facility] HospitalKvmfqfrFVXKITNWZL9279-34-22 10:58:00 Test Item Value Reference Range Interpretation Comments MCHC (test code = MCHC) 31.7 32.0-36.0 [facility] HospitalGkbvqscSWXFFNPBDU7277-18-96 10:58:00 Test Item Value Reference Range Interpretation Comments Platelet (test code = Platelet) 242 133-450 [facility]2015-12-18 10:58:00 Test Item Value Reference Range Interpretation Comments eGFR (test code = eGFR) 126 [facility]2015-12-18 10:58:00 Test Item Value Reference Range Interpretation Comments AST (test code = AST) 29 See_Comment [Auto mated message] The system which ge nerated this result transmit arvind reference range : <=37. The reference range was not used to interpr et this result as mario l/abnormal. [facility]2015-12-18 10:58:00 Test Item Value Reference Range Interpretation Comments Alk Phos (test code = Alk Phos) 86 39-136 [facility]2015-12-18 10:58:00 Test Item Value Reference Range Interpretation Comments Bili Total (test code = Bili Total) 0.3 0.2-1.3 [facility]2015-12-18 10:58:00 Test Item Value Reference Range Interpretation Comments ALT (test code = ALT) 50 See_Comment [Auto mated message] The system which ge nerated this result transmit arvind reference range : <=65. The reference range was not used to interpr et this result as mario l/abnormal. [facility]2015-12-18 10:58:00 Test Item Value Reference Range Interpretation Comments Sodium Lvl (test code = Sodium Lvl) 136 135-145 [facility]2015-12-18 10:58:00 Test Item Value Reference Range Interpretation Comments Potassium Lvl (test code = Potassium 4.0 3.5-5.1 Lvl) [facility]2015-12-18 10:58:00 Test Item Value Reference Range Interpretation Comments Creatinine Lvl (test code = Creatinine 0.62 0.50-1.40 Lvl) [facility]2015-12-18 10:58:00 Test Item Value Reference Range Interpretation Comments Glucose Lvl (test code = Glucose Lvl) 101 70-99 [facility]2015-12-18 10:58:00 Test Item Value Reference Range Interpretation Comments BUN (test code = BUN) 5 7-22 [facility]2015-12-18 10:58:00 Test Item Value Reference Range Interpretation Comments Total Protein (test code = Total 5.8 6.4-8.4 Protein) [facility]2015-12-18 10:58:00 Test Item Value Reference Range Interpretation Comments Albumin Lvl (test code = Albumin Lvl) 3.2 3.5-5.0 [facility]2015-12-18 10:58:00 Test Item Value Reference Range Interpretation Comments Chloride Lvl (test code = Chloride Lvl) 100 95-109 [facility]2015-12-18 10:58:00 Test Item Value Reference Range Interpretation Comments Calcium Lvl (test code = Calcium Lvl) 8.6 8.5-10.5 [facility]2015-12-18 10:58:00 Test Item Value Reference Range Interpretation Comments CO2 (test code = CO2) 27 24-32 [facility]2015-12-18 10:58:00 Test Item Value Reference Range Interpretation Comments B/C Ratio (test code = B/C Ratio) 8 6-25 [facility]2015-12-18 10:58:00 Test Item Value Reference Range Interpretation Comments Globulin (test code = Globulin) 2.6 2.0-4.0 [facility]2015-12-18 10:58:00 Test Item Value Reference Range Interpretation Comments A/G Ratio (test code = A/G Ratio) 1.2 0.7-1.6 [facility]2015-12-18 10:58:00 Test Item Value Reference Range Interpretation Comments AGAP (test code = AGAP) 13.0 10.0-20.0 [facility]zQFOOGDIFJV2578-06-43 10:58:00 Test Item Value Reference Range Interpretation Comments Segs (test code = Segs) 74.2 45.0-75.0 [facility] HospitalYjodddkTJZOSQWZVP2984-46-41 10:58:00 Test Item Value Reference Range Interpretation Comments Lymphocytes (test code = Lymphocytes) 18.3 20.0-40.0 [facility] HospitalMzsmeisQMNAPWFJEH0643-37-05 10:58:00 Test Item Value Reference Range Interpretation Comments Monocytes (test code = Monocytes) 7.0 2.0-12.0 [facility] HospitalYcnhigoUGXNARULXL9955-88-80 10:58:00 Test Item Value Reference Range Interpretation Comments Basophils (test code = 0.3 See_Comment [Aut omated message] The Basophils) system which ge nerated this result tra nsmitted reference range : <=1.0. The reference r kat was not used to int erpret this result as normal/abnormal . [facility] HospitalXipoffgAAHMJMNUNU8172-90-78 10:58:00 Test Item Value Reference Range Interpretation Comments Segs-Bands # (test code = Segs-Bands #) 8.1 1.5-8.1 [facility] HospitalOxatqlyKTFCVPBFXS6152-79-86 10:58:00 Test Item Value Reference Range Interpretation Comments Eosinophils (test code = 0.2 See_Comment [A utomated message] The Eosinophils) system which ge nerated this result tra nsmitted reference range : <=4.0. The reference r kat was not used to int erpret this result as normal/abnormal . [facility] HospitalEumbsseCFWWNJYVHM8935-96-50 10:58:00 Test Item Value Reference Range Interpretation Comments Monocytes # (test code 0.8 See_Comment [Aut omated message] The = Monocytes #) system which generated this result tra nsmitted reference range : <=0.8. The reference r kat was not used to int erpret this result as normal/abnormal . [facility] HospitalShnpeekAEYFXEEQBY4606-51-36 10:58:00 Test Item Value Reference Range Interpretation Comments Lymphocytes # (test code = Lymphocytes 2.0 1.0-5.5 #) [facility]XlgvdrdPVNRPTYYDO3235-81-66 10:58:00 Test Item Value Reference Range Interpretation Comments Microcyte (test code = 1+ *ABN*(08/16/15 Microcyte) 4:58 AM) [place] 543935-12-18 10:58:00 Test Item Value Reference Range Interpretation Comments MPV (test code = MPV) 8.9 7.4-10.4 [facility] HospitalVrhkizgZTOOWUMYSY6773-46-76 10:58:00 Test Item Value Reference Range Interpretation Comments MCV (test code = MCV) 77.3 80.0-98.0 [facility] HospitalPqsvbixXNOAWLECVE3082-61-37 10:58:00 Test Item Value Reference Range Interpretation Comments Hgb (test code = Hgb) 11.9 12.0-16.0 [facility] HospitalAcskdorFPNBXQQVZP1342-92-93 10:58:00 Test Item Value Reference Range Interpretation Comments Hct (test code = Hct) 37.5 36.0-48.0 [facility] HospitalDqrpjkbOQVTAUCRVE2207-00-55 10:58:00 Test Item Value Reference Range Interpretation Comments MCH (test code = MCH) 24.5 pg 27.0-31.0 [facility] HospitalYueqsacBBCDANVYQT7572-60-17 10:58:00 Test Item Value Reference Range Interpretation Comments RBC (test code = RBC) 4.85 4.20-5.40 [facility] HospitalSdpwbbhRYZKBJIECR8490-70-43 10:58:00 Test Item Value Reference Range Interpretation Comments WBC (test code = WBC) 10.9 3.7-10.4 [facility] HospitalGtrftitIHMVYHBPDF1201-15-40 10:58:00 Test Item Value Reference Range Interpretation Comments RDW (test code = RDW) 15.9 11.5-14.5 [facility] HospitalSrptvqbUDCCBZLUES9783-10-89 10:58:00 Test Item Value Reference Range Interpretation Comments MCHC (test code = MCHC) 31.7 32.0-36.0 [facility] HospitalPjvzraaZYJAXYFRLJ1214-50-79 10:58:00 Test Item Value Reference Range Interpretation Comments Platelet (test code = Platelet) 242 133-450 [facility]2015-12-18 10:58:00 Test Item Value Reference Range Interpretation Comments eGFR (test code = eGFR) 126 [facility]2015-12-18 10:58:00 Test Item Value Reference Range Interpretation Comments AST (test code = AST) 29 See_Comment [Auto mated message] The system which ge nerated this result transmit arvind reference range : <=37. The reference range was not used to interpr et this result as mario l/abnormal. [facility]2015-12-18 10:58:00 Test Item Value Reference Range Interpretation Comments Alk Phos (test code = Alk Phos) 86 39-136 [facility]2015-12-18 10:58:00 Test Item Value Reference Range Interpretation Comments Bili Total (test code = Bili Total) 0.3 0.2-1.3 [facility]2015-12-18 10:58:00 Test Item Value Reference Range Interpretation Comments ALT (test code = ALT) 50 See_Comment [Auto mated message] The system which ge nerated this result transmit arvind reference range : <=65. The reference range was not used to interpr et this result as mario l/abnormal. [facility]2015-12-18 10:58:00 Test Item Value Reference Range Interpretation Comments Sodium Lvl (test code = Sodium Lvl) 136 135-145 [facility]2015-12-18 10:58:00 Test Item Value Reference Range Interpretation Comments Potassium Lvl (test code = Potassium 4.0 3.5-5.1 Lvl) [facility]2015-12-18 10:58:00 Test Item Value Reference Range Interpretation Comments Creatinine Lvl (test code = Creatinine 0.62 0.50-1.40 Lvl) [facility]2015-12-18 10:58:00 Test Item Value Reference Range Interpretation Comments Glucose Lvl (test code = Glucose Lvl) 101 70-99 [facility]2015-12-18 10:58:00 Test Item Value Reference Range Interpretation Comments BUN (test code = BUN) 5 7-22 [facility]2015-12-18 10:58:00 Test Item Value Reference Range Interpretation Comments Total Protein (test code = Total 5.8 6.4-8.4 Protein) [facility]2015-12-18 10:58:00 Test Item Value Reference Range Interpretation Comments Albumin Lvl (test code = Albumin Lvl) 3.2 3.5-5.0 [facility]2015-12-18 10:58:00 Test Item Value Reference Range Interpretation Comments Chloride Lvl (test code = Chloride Lvl) 100 95-109 [facility]2015-12-18 10:58:00 Test Item Value Reference Range Interpretation Comments Calcium Lvl (test code = Calcium Lvl) 8.6 8.5-10.5 [facility]2015-12-18 10:58:00 Test Item Value Reference Range Interpretation Comments CO2 (test code = CO2) 27 24-32 [facility]2015-12-18 10:58:00 Test Item Value Reference Range Interpretation Comments B/C Ratio (test code = B/C Ratio) 8 6-25 [facility]2015-12-18 10:58:00 Test Item Value Reference Range Interpretation Comments Globulin (test code = Globulin) 2.6 2.0-4.0 [facility]2015-12-18 10:58:00 Test Item Value Reference Range Interpretation Comments A/G Ratio (test code = A/G Ratio) 1.2 0.7-1.6 [facility]2015-12-18 10:58:00 Test Item Value Reference Range Interpretation Comments AGAP (test code = AGAP) 13.0 10.0-20.0 [facility]SsllncrOEQURUVWAH0378-93-28 10:58:00 Test Item Value Reference Range Interpretation Comments Segs (test code = Segs) 74.2 45.0-75.0 [facility] HospitalVproblcRHTWVAYDYI1221-61-02 10:58:00 Test Item Value Reference Range Interpretation Comments Lymphocytes (test code = Lymphocytes) 18.3 20.0-40.0 [facility] HospitalRzzhsbdEBXAJVTZCM2734-96-78 10:58:00 Test Item Value Reference Range Interpretation Comments Monocytes (test code = Monocytes) 7.0 2.0-12.0 [facility] HospitalNpkxkyyDBYSOOZNYV3138-83-09 10:58:00 Test Item Value Reference Range Interpretation Comments Basophils (test code = 0.3 See_Comment [Aut omated message] The Basophils) system which ge nerated this result tra nsmitted reference range : <=1.0. The reference r kat was not used to int erpret this result as normal/abnormal . [facility] HospitalBtzuasyMGODUXVEMS9040-31-58 10:58:00 Test Item Value Reference Range Interpretation Comments Segs-Bands # (test code = Segs-Bands #) 8.1 1.5-8.1 [facility]FtemouhHITTXJHSMM1367-89-51 10:58:00 Test Item Value Reference Range Interpretation Comments Eosinophils (test code = 0.2 See_Comment [A utomated message] The Eosinophils) system which ge nerated this result tra nsmitted reference range : <=4.0. The reference r kat was not used to int erpret this result as normal/abnormal . [facility] HospitalRxdyydjTJECCEMXKJ9337-88-64 10:58:00 Test Item Value Reference Range Interpretation Comments Monocytes # (test code 0.8 See_Comment [Aut omated message] The = Monocytes #) system which generated this result tra nsmitted reference range : <=0.8. The reference r kat was not used to int erpret this result as normal/abnormal . [facility] HospitalIqaztcvIVUAMNHJOR8328-11-87 10:58:00 Test Item Value Reference Range Interpretation Comments Lymphocytes # (test code = Lymphocytes 2.0 1.0-5.5 #) [facility] HospitalSriiudaQJDJIFPPKE3732-21-90 10:58:00 Test Item Value Reference Range Interpretation Comments Microcyte (test code = 1+ *ABN*(08/16/15 Microcyte) 4:58 AM) [facility] HospitalLnazxjnDNTXTKLKHA5066-86-39 10:58:00 Test Item Value Reference Range Interpretation Comments MPV (test code = MPV) 8.9 7.4-10.4 [facility] HospitalJjfzwejJNVOFZTMGQ1902-71-99 10:58:00 Test Item Value Reference Range Interpretation Comments MCV (test code = MCV) 77.3 80.0-98.0 [facility] HospitalHjqulxoSOWPSTMSKA5220-88-98 10:58:00 Test Item Value Reference Range Interpretation Comments Hgb (test code = Hgb) 11.9 12.0-16.0 [facility] HospitalKykaufnXWAAWXEDVQ2265-73-52 10:58:00 Test Item Value Reference Range Interpretation Comments Hct (test code = Hct) 37.5 36.0-48.0 [facility] HospitalXvvmtlyLJTZOSBOHZ5058-15-13 10:58:00 Test Item Value Reference Range Interpretation Comments MCH (test code = MCH) 24.5 pg 27.0-31.0 [facility] HospitalKcfshysLNAIFSXCAI4759-05-99 10:58:00 Test Item Value Reference Range Interpretation Comments RBC (test code = RBC) 4.85 4.20-5.40 [facility] HospitalRrlqougNPLOKGEPOB5164-80-12 10:58:00 Test Item Value Reference Range Interpretation Comments WBC (test code = WBC) 10.9 3.7-10.4 [facility] HospitalUyqbvzhHDWEQMLMEG6126-78-03 10:58:00 Test Item Value Reference Range Interpretation Comments RDW (test code = RDW) 15.9 11.5-14.5 [facility] HospitalQzikkciCAXISIXLEC1818-26-87 10:58:00 Test Item Value Reference Range Interpretation Comments MCHC (test code = MCHC) 31.7 32.0-36.0 [facility] HospitalAigthapORAHLHFJBR1414-47-51 10:58:00 Test Item Value Reference Range Interpretation Comments Platelet (test code = Platelet) 242 133-450 [facility]2015-12-18 10:58:00 Test Item Value Reference Range Interpretation Comments eGFR (test code = eGFR) 126 [facility]2015-12-18 10:58:00 Test Item Value Reference Range Interpretation Comments AST (test code = AST) 29 See_Comment [Auto mated message] The system which ge nerated this result transmit arvind reference range : <=37. The reference range was not used to interpr et this result as mario l/abnormal. [facility]2015-12-18 10:58:00 Test Item Value Reference Range Interpretation Comments Alk Phos (test code = Alk Phos) 86 39-136 [facility]2015-12-18 10:58:00 Test Item Value Reference Range Interpretation Comments Bili Total (test code = Bili Total) 0.3 0.2-1.3 [facility]2015-12-18 10:58:00 Test Item Value Reference Range Interpretation Comments ALT (test code = ALT) 50 See_Comment [Auto mated message] The system which ge nerated this result transmit arvind reference range : <=65. The reference range was not used to interpr et this result as mario l/abnormal. [facility]2015-12-18 10:58:00 Test Item Value Reference Range Interpretation Comments Sodium Lvl (test code = Sodium Lvl) 136 135-145 [facility]2015-12-18 10:58:00 Test Item Value Reference Range Interpretation Comments Potassium Lvl (test code = Potassium 4.0 3.5-5.1 Lvl) [facility]2015-12-18 10:58:00 Test Item Value Reference Range Interpretation Comments Creatinine Lvl (test code = Creatinine 0.62 0.50-1.40 Lvl) [facility]2015-12-18 10:58:00 Test Item Value Reference Range Interpretation Comments Glucose Lvl (test code = Glucose Lvl) 101 70-99 [facility]2015-12-18 10:58:00 Test Item Value Reference Range Interpretation Comments BUN (test code = BUN) 5 7-22 [facility]2015-12-18 10:58:00 Test Item Value Reference Range Interpretation Comments Total Protein (test code = Total 5.8 6.4-8.4 Protein) [facility]2015-12-18 10:58:00 Test Item Value Reference Range Interpretation Comments Albumin Lvl (test code = Albumin Lvl) 3.2 3.5-5.0 [facility]2015-12-18 10:58:00 Test Item Value Reference Range Interpretation Comments Chloride Lvl (test code = Chloride Lvl) 100 95-109 [facility]2015-12-18 10:58:00 Test Item Value Reference Range Interpretation Comments Calcium Lvl (test code = Calcium Lvl) 8.6 8.5-10.5 [facility]2015-12-18 10:58:00 Test Item Value Reference Range Interpretation Comments CO2 (test code = CO2) 27 24-32 [facility]2015-12-18 10:58:00 Test Item Value Reference Range Interpretation Comments B/C Ratio (test code = B/C Ratio) 8 6-25 [facility]2015-12-18 10:58:00 Test Item Value Reference Range Interpretation Comments Globulin (test code = Globulin) 2.6 2.0-4.0 [facility]2015-12-18 10:58:00 Test Item Value Reference Range Interpretation Comments A/G Ratio (test code = A/G Ratio) 1.2 0.7-1.6 [facility]2015-12-18 10:58:00 Test Item Value Reference Range Interpretation Comments AGAP (test code = AGAP) 13.0 10.0-20.0 [facility] HospitalHadryocEAEFXBKBJJ5000-04-13 10:58:00 Test Item Value Reference Range Interpretation Comments Segs (test code = Segs) 74.2 45.0-75.0 [facility] HospitalIpgwocgVZPBLIQAVD1246-75-25 10:58:00 Test Item Value Reference Range Interpretation Comments Lymphocytes (test code = Lymphocytes) 18.3 20.0-40.0 [facility] HospitalYiboeuqIHKUPUSEII4101-58-56 10:58:00 Test Item Value Reference Range Interpretation Comments Monocytes (test code = Monocytes) 7.0 2.0-12.0 [facility] HospitalMjadjsbBCIXJINNIQ8713-74-88 10:58:00 Test Item Value Reference Range Interpretation Comments Basophils (test code = 0.3 See_Comment [Aut omated message] The Basophils) system which ge nerated this result tra nsmitted reference range : <=1.0. The reference r kat was not used to int erpret this result as normal/abnormal . [facility] HospitalPdbebbqRKUIZOKQEA5254-25-79 10:58:00 Test Item Value Reference Range Interpretation Comments Segs-Bands # (test code = Segs-Bands #) 8.1 1.5-8.1 [facility] HospitalZfricezAYJHCCOGQC1898-83-68 10:58:00 Test Item Value Reference Range Interpretation Comments Eosinophils (test code = 0.2 See_Comment [A utomated message] The Eosinophils) system which ge nerated this result tra nsmitted reference range : <=4.0. The reference r kat was not used to int erpret this result as normal/abnormal . [facility] HospitalVadnowtOEAKLUQFHW5032-19-26 10:58:00 Test Item Value Reference Range Interpretation Comments Monocytes # (test code 0.8 See_Comment [Aut omated message] The = Monocytes #) system which generated this result tra nsmitted reference range : <=0.8. The reference r kat was not used to int erpret this result as normal/abnormal . [facility] HospitalXajzkpzJUMLRQJVIF5865-94-15 10:58:00 Test Item Value Reference Range Interpretation Comments Lymphocytes # (test code = Lymphocytes 2.0 1.0-5.5 #) [facility] HospitalGhewinrCEBWCAIZTL4367-19-89 10:58:00 Test Item Value Reference Range Interpretation Comments Microcyte (test code = 1+ *ABN*(08/16/15 Microcyte) 4:58 AM) [facility] HospitalQdjstalLQFSFIWJXS5811-64-07 10:58:00 Test Item Value Reference Range Interpretation Comments MPV (test code = MPV) 8.9 7.4-10.4 [facility] HospitalQuksmloAOTYVOKJPK6308-94-51 10:58:00 Test Item Value Reference Range Interpretation Comments MCV (test code = MCV) 77.3 80.0-98.0 [facility] HospitalDrplueaUHOABWHBTS0605-70-80 10:58:00 Test Item Value Reference Range Interpretation Comments Hgb (test code = Hgb) 11.9 12.0-16.0 [facility] HospitalXnejminXYPHXNVLZC5672-03-39 10:58:00 Test Item Value Reference Range Interpretation Comments Hct (test code = Hct) 37.5 36.0-48.0 [facility] HospitalBvdziztSQZAFYSYVE3150-18-66 10:58:00 Test Item Value Reference Range Interpretation Comments MCH (test code = MCH) 24.5 pg 27.0-31.0 [facility] HospitalQbbnzutUOSROVWCNX0657-93-78 10:58:00 Test Item Value Reference Range Interpretation Comments RBC (test code = RBC) 4.85 4.20-5.40 [facility] HospitalKnntexuRLYAHGWGPA1046-89-67 10:58:00 Test Item Value Reference Range Interpretation Comments WBC (test code = WBC) 10.9 3.7-10.4 [facility] HospitalFttvpqhTNSNQSPSGK0051-62-38 10:58:00 Test Item Value Reference Range Interpretation Comments RDW (test code = RDW) 15.9 11.5-14.5 [facility] HospitalApiozzfRJQMUPFMIM6575-10-98 10:58:00 Test Item Value Reference Range Interpretation Comments MCHC (test code = MCHC) 31.7 32.0-36.0 [facility] HospitalLjtzrlbWANXAGRRSN2087-53-93 10:58:00 Test Item Value Reference Range Interpretation Comments Platelet (test code = Platelet) 242 133-450 [facility]2015-12-18 10:58:00 Test Item Value Reference Range Interpretation Comments eGFR (test code = eGFR) 126 [facility]2015-12-18 10:58:00 Test Item Value Reference Range Interpretation Comments AST (test code = AST) 29 See_Comment [Auto mated message] The system which ge nerated this result transmit arvind reference range : <=37. The reference range was not used to interpr et this result as mario l/abnormal. [facility]2015-12-18 10:58:00 Test Item Value Reference Range Interpretation Comments Alk Phos (test code = Alk Phos) 86 39-136 [facility]2015-12-18 10:58:00 Test Item Value Reference Range Interpretation Comments Bili Total (test code = Bili Total) 0.3 0.2-1.3 [facility]2015-12-18 10:58:00 Test Item Value Reference Range Interpretation Comments ALT (test code = ALT) 50 See_Comment [Auto mated message] The system which ge nerated this result transmit arvind reference range : <=65. The reference range was not used to interpr et this result as mario l/abnormal. [facility]2015-12-18 10:58:00 Test Item Value Reference Range Interpretation Comments Sodium Lvl (test code = Sodium Lvl) 136 135-145 [facility]2015-12-18 10:58:00 Test Item Value Reference Range Interpretation Comments Potassium Lvl (test code = Potassium 4.0 3.5-5.1 Lvl) [facility]2015-12-18 10:58:00 Test Item Value Reference Range Interpretation Comments Creatinine Lvl (test code = Creatinine 0.62 0.50-1.40 Lvl) [facility]2015-12-18 10:58:00 Test Item Value Reference Range Interpretation Comments Glucose Lvl (test code = Glucose Lvl) 101 70-99 [facility]2015-12-18 10:58:00 Test Item Value Reference Range Interpretation Comments BUN (test code = BUN) 5 7-22 [facility]2015-12-18 10:58:00 Test Item Value Reference Range Interpretation Comments Total Protein (test code = Total 5.8 6.4-8.4 Protein) [facility]2015-12-18 10:58:00 Test Item Value Reference Range Interpretation Comments Albumin Lvl (test code = Albumin Lvl) 3.2 3.5-5.0 [facility]2015-12-18 10:58:00 Test Item Value Reference Range Interpretation Comments Chloride Lvl (test code = Chloride Lvl) 100 95-109 [facility]2015-12-18 10:58:00 Test Item Value Reference Range Interpretation Comments Calcium Lvl (test code = Calcium Lvl) 8.6 8.5-10.5 [facility]2015-12-18 10:58:00 Test Item Value Reference Range Interpretation Comments CO2 (test code = CO2) 27 24-32 [facility]2015-12-18 10:58:00 Test Item Value Reference Range Interpretation Comments B/C Ratio (test code = B/C Ratio) 8 6-25 [facility]2015-12-18 10:58:00 Test Item Value Reference Range Interpretation Comments Globulin (test code = Globulin) 2.6 2.0-4.0 [facility]2015-12-18 10:58:00 Test Item Value Reference Range Interpretation Comments A/G Ratio (test code = A/G Ratio) 1.2 0.7-1.6 [facility]2015-12-18 10:58:00 Test Item Value Reference Range Interpretation Comments AGAP (test code = AGAP) 13.0 10.0-20.0 [facility] HospitalFgzwzyiNIJYJZWUBT5974-80-72 10:58:00 Test Item Value Reference Range Interpretation Comments Segs (test code = Segs) 74.2 45.0-75.0 [facility] HospitalOnmizeqHYHQPOFGTR5750-28-71 10:58:00 Test Item Value Reference Range Interpretation Comments Lymphocytes (test code = Lymphocytes) 18.3 20.0-40.0 [facility] HospitalMlamkdbFCWYUFQRGH7396-38-79 10:58:00 Test Item Value Reference Range Interpretation Comments Monocytes (test code = Monocytes) 7.0 2.0-12.0 [facility]2015-12-18 10:58:00 Test Item Value Reference Range Interpretation Comments eGFR (test code = eGFR) 126 [facility] HospitalUqyjoyeLMCAOJTMJI1754-10-48 10:58:00 Test Item Value Reference Range Interpretation Comments Basophils (test code = 0.3 See_Comment [Aut omated message] The Basophils) system which ge nerated this result tra nsmitted reference range : <=1.0. The reference r kat was not used to int erpret this result as normal/abnormal . [facility] HospitalQuzqvcbUAVFYCXBRJ1032-06-56 10:58:00 Test Item Value Reference Range Interpretation Comments Segs-Bands # (test code = Segs-Bands #) 8.1 1.5-8.1 [facility] HospitalJzroeclTFWMUAVLKT0574-98-99 10:58:00 Test Item Value Reference Range Interpretation Comments Eosinophils (test code = 0.2 See_Comment [A utomated message] The Eosinophils) system which ge nerated this result tra nsmitted reference range : <=4.0. The reference r kat was not used to int erpret this result as normal/abnormal . [facility] HospitalQtpwforOEFFWXSMLU7092-59-40 10:58:00 Test Item Value Reference Range Interpretation Comments Monocytes # (test code 0.8 See_Comment [Aut omated message] The = Monocytes #) system which generated this result tra nsmitted reference range : <=0.8. The reference r kat was not used to int erpret this result as normal/abnormal . [facility] HospitalYeloantURVFJLITZQ7263-30-69 10:58:00 Test Item Value Reference Range Interpretation Comments Lymphocytes # (test code = Lymphocytes 2.0 1.0-5.5 #) [facility] HospitalZoyghqiVAZYZUUMZI5951-93-43 10:58:00 Test Item Value Reference Range Interpretation Comments Microcyte (test code = 1+ *ABN*(08/16/15 Microcyte) 4:58 AM) [facility] HospitalWlpncugNKUSDFTMOQ4078-97-33 10:58:00 Test Item Value Reference Range Interpretation Comments MPV (test code = MPV) 8.9 7.4-10.4 [facility] HospitalYrrfwzjYDENQDUCCD7532-54-06 10:58:00 Test Item Value Reference Range Interpretation Comments MCV (test code = MCV) 77.3 80.0-98.0 [facility] HospitalJjiutcwPVKMGBJNUQ1439-93-53 10:58:00 Test Item Value Reference Range Interpretation Comments Hgb (test code = Hgb) 11.9 12.0-16.0 [facility] HospitalDbsitlrUIDOGMVOIO1883-05-26 10:58:00 Test Item Value Reference Range Interpretation Comments Hct (test code = Hct) 37.5 36.0-48.0 [facility]2015-12-18 10:58:00 Test Item Value Reference Range Interpretation Comments AST (test code = AST) 29 See_Comment [Auto mated message] The system which ge nerated this result transmit arvind reference range : <=37. The reference range was not used to interpr et this result as mario l/abnormal. [facility] HospitalEzwmrnuHQDZVXBRDW1522-82-90 10:58:00 Test Item Value Reference Range Interpretation Comments MCH (test code = MCH) 24.5 pg 27.0-31.0 [facility] HospitalUsjrfzyFMMOKTKUGT3140-09-59 10:58:00 Test Item Value Reference Range Interpretation Comments RBC (test code = RBC) 4.85 4.20-5.40 [facility] HospitalEnludlgJAZWIAZVQG9884-94-35 10:58:00 Test Item Value Reference Range Interpretation Comments WBC (test code = WBC) 10.9 3.7-10.4 [facility] HospitalEolavnzGRSNQGEXYI7342-38-09 10:58:00 Test Item Value Reference Range Interpretation Comments RDW (test code = RDW) 15.9 11.5-14.5 [facility] HospitalWrhgaodMKWOZWJGPH4733-10-98 10:58:00 Test Item Value Reference Range Interpretation Comments MCHC (test code = MCHC) 31.7 32.0-36.0 [facility] HospitalAzpxjgjXWPBCIUSAO7922-89-30 10:58:00 Test Item Value Reference Range Interpretation Comments Platelet (test code = Platelet) 242 133-450 [facility]2015-12-18 10:58:00 Test Item Value Reference Range Interpretation Comments Alk Phos (test code = Alk Phos) 86 39-136 [facility]2015-12-18 10:58:00 Test Item Value Reference Range Interpretation Comments Bili Total (test code = Bili Total) 0.3 0.2-1.3 [facility]2015-12-18 10:58:00 Test Item Value Reference Range Interpretation Comments ALT (test code = ALT) 50 See_Comment [Auto mated message] The system which ge nerated this result transmit arvind reference range : <=65. The reference range was not used to interpr et this result as mario l/abnormal. [facility]2015-12-18 10:58:00 Test Item Value Reference Range Interpretation Comments Sodium Lvl (test code = Sodium Lvl) 136 135-145 [facility]2015-12-18 10:58:00 Test Item Value Reference Range Interpretation Comments Potassium Lvl (test code = Potassium 4.0 3.5-5.1 Lvl) [facility]2015-12-18 10:58:00 Test Item Value Reference Range Interpretation Comments Creatinine Lvl (test code = Creatinine 0.62 0.50-1.40 Lvl) [facility]2015-12-18 10:58:00 Test Item Value Reference Range Interpretation Comments Glucose Lvl (test code = Glucose Lvl) 101 70-99 [facility]2015-12-18 10:58:00 Test Item Value Reference Range Interpretation Comments BUN (test code = BUN) 5 7-22 [facility]2015-12-18 10:58:00 Test Item Value Reference Range Interpretation Comments Total Protein (test code = Total 5.8 6.4-8.4 Protein) [facility]2015-12-18 10:58:00 Test Item Value Reference Range Interpretation Comments Albumin Lvl (test code = Albumin Lvl) 3.2 3.5-5.0 [facility]2015-12-18 10:58:00 Test Item Value Reference Range Interpretation Comments Chloride Lvl (test code = Chloride Lvl) 100 95-109 [facility]2015-12-18 10:58:00 Test Item Value Reference Range Interpretation Comments Calcium Lvl (test code = Calcium Lvl) 8.6 8.5-10.5 [facility]2015-12-18 10:58:00 Test Item Value Reference Range Interpretation Comments CO2 (test code = CO2) 27 24-32 [facility]2015-12-18 10:58:00 Test Item Value Reference Range Interpretation Comments B/C Ratio (test code = B/C Ratio) 8 6-25 [facility]2015-12-18 10:58:00 Test Item Value Reference Range Interpretation Comments Globulin (test code = Globulin) 2.6 2.0-4.0 [facility]2015-12-18 10:58:00 Test Item Value Reference Range Interpretation Comments A/G Ratio (test code = A/G Ratio) 1.2 0.7-1.6 [facility]2015-12-18 10:58:00 Test Item Value Reference Range Interpretation Comments AGAP (test code = AGAP) 13.0 10.0-20.0 [facility] HospitalLqwdodcXGLFKLKYER6763-21-74 10:58:00 Test Item Value Reference Range Interpretation Comments Segs (test code = Segs) 74.2 45.0-75.0 [facility] HospitalKdqhosyXZVQLUCCQW3821-78-99 10:58:00 Test Item Value Reference Range Interpretation Comments Lymphocytes (test code = Lymphocytes) 18.3 20.0-40.0 [facility] HospitalQkfdsnaGSZTORGCHV2933-38-36 10:58:00 Test Item Value Reference Range Interpretation Comments Monocytes (test code = Monocytes) 7.0 2.0-12.0 [facility] HospitalPyjkomhBUDJESSKOS4817-74-65 10:58:00 Test Item Value Reference Range Interpretation Comments Basophils (test code = 0.3 See_Comment [Aut omated message] The Basophils) system which ge nerated this result tra nsmitted reference range : <=1.0. The reference r kat was not used to int erpret this result as normal/abnormal . [facility] HospitalLwhczjxQNFDMAPJPQ4417-32-69 10:58:00 Test Item Value Reference Range Interpretation Comments Segs-Bands # (test code = Segs-Bands #) 8.1 1.5-8.1 [facility] HospitalVaibaupRDJDMYBKYQ5808-51-21 10:58:00 Test Item Value Reference Range Interpretation Comments Eosinophils (test code = 0.2 See_Comment [A utomated message] The Eosinophils) system which ge nerated this result tra nsmitted reference range : <=4.0. The reference r kat was not used to int erpret this result as normal/abnormal . [facility] HospitalEdszekmYBCCKJUZSE9878-85-37 10:58:00 Test Item Value Reference Range Interpretation Comments Monocytes # (test code 0.8 See_Comment [Aut omated message] The = Monocytes #) system which generated this result tra nsmitted reference range : <=0.8. The reference r kat was not used to int erpret this result as normal/abnormal . [facility] HospitalUbvmcpwVUXCPTRHTT9382-85-39 10:58:00 Test Item Value Reference Range Interpretation Comments Lymphocytes # (test code = Lymphocytes 2.0 1.0-5.5 #) [facility] HospitalAaaewdxGGMXUGYCZO1580-93-00 10:58:00 Test Item Value Reference Range Interpretation Comments Microcyte (test code = 1+ *ABN*(08/16/15 Microcyte) 4:58 AM) [facility] HospitalOkoqhqgQYFWHKMMUE4615-79-12 10:58:00 Test Item Value Reference Range Interpretation Comments MPV (test code = MPV) 8.9 7.4-10.4 [facility] HospitalXrwrdziAFRYHSMAUA9512-80-25 10:58:00 Test Item Value Reference Range Interpretation Comments MCV (test code = MCV) 77.3 80.0-98.0 [facility] HospitalEfybapsBZDGNHJFGV2058-58-06 10:58:00 Test Item Value Reference Range Interpretation Comments Hgb (test code = Hgb) 11.9 12.0-16.0 [facility] HospitalGgsnbwnDDEYGOSLKP8961-16-35 10:58:00 Test Item Value Reference Range Interpretation Comments Hct (test code = Hct) 37.5 36.0-48.0 [facility] HospitalYpiycyvAIDWITDGHR9173-77-37 10:58:00 Test Item Value Reference Range Interpretation Comments MCH (test code = MCH) 24.5 pg 27.0-31.0 [facility] HospitalOsinvvgHCMGHYJICP8533-27-56 10:58:00 Test Item Value Reference Range Interpretation Comments RBC (test code = RBC) 4.85 4.20-5.40 [facility] HospitalQjgnwqwVGXOPVSMQW6402-46-88 10:58:00 Test Item Value Reference Range Interpretation Comments WBC (test code = WBC) 10.9 3.7-10.4 [facility] HospitalIcdibbwXFVHYJVKTW5775-05-58 10:58:00 Test Item Value Reference Range Interpretation Comments RDW (test code = RDW) 15.9 11.5-14.5 [facility] HospitalKkrmcfaDVODINGTQN3418-71-35 10:58:00 Test Item Value Reference Range Interpretation Comments MCHC (test code = MCHC) 31.7 32.0-36.0 [facility]jnbcddJLEXQRDDSX2345[facility]-14 10:58:00 Test Item Value Reference Range Interpretation Comments Platelet (test code = Platelet) 242 133-450 [facility]2015-12-18 10:58:00 Test Item Value Reference Range Interpretation Comments eGFR (test code = eGFR) 126 [facility]2015-12-18 10:58:00 Test Item Value Reference Range Interpretation Comments AST (test code = AST) 29 See_Comment [Auto mated message] The system which ge nerated this result transmit arvind reference range : <=37. The reference range was not used to interpr et this result as mario l/abnormal. [facility]2015-12-18 10:58:00 Test Item Value Reference Range Interpretation Comments Alk Phos (test code = Alk Phos) 86 39-136 [facility]2015-12-18 10:58:00 Test Item Value Reference Range Interpretation Comments Bili Total (test code = Bili Total) 0.3 0.2-1.3 [facility]2015-12-18 10:58:00 Test Item Value Reference Range Interpretation Comments ALT (test code = ALT) 50 See_Comment [Auto mated message] The system which ge nerated this result transmit arvind reference range : <=65. The reference range was not used to interpr et this result as mario l/abnormal. [facility]2015-12-18 10:58:00 Test Item Value Reference Range Interpretation Comments Sodium Lvl (test code = Sodium Lvl) 136 135-145 [facility]2015-12-18 10:58:00 Test Item Value Reference Range Interpretation Comments Potassium Lvl (test code = Potassium 4.0 3.5-5.1 Lvl) [facility]2015-12-18 10:58:00 Test Item Value Reference Range Interpretation Comments Creatinine Lvl (test code = Creatinine 0.62 0.50-1.40 Lvl) [facility]2015-12-18 10:58:00 Test Item Value Reference Range Interpretation Comments Glucose Lvl (test code = Glucose Lvl) 101 70-99 [facility]2015-12-18 10:58:00 Test Item Value Reference Range Interpretation Comments BUN (test code = BUN) 5 7-22 [facility]2015-12-18 10:58:00 Test Item Value Reference Range Interpretation Comments Total Protein (test code = Total 5.8 6.4-8.4 Protein) [facility]2015-12-18 10:58:00 Test Item Value Reference Range Interpretation Comments Albumin Lvl (test code = Albumin Lvl) 3.2 3.5-5.0 [facility]2015-12-18 10:58:00 Test Item Value Reference Range Interpretation Comments Chloride Lvl (test code = Chloride Lvl) 100 95-109 [facility]2015-12-18 10:58:00 Test Item Value Reference Range Interpretation Comments Calcium Lvl (test code = Calcium Lvl) 8.6 8.5-10.5 [facility]2015-12-18 10:58:00 Test Item Value Reference Range Interpretation Comments CO2 (test code = CO2) 27 24-32 [facility]2015-12-18 10:58:00 Test Item Value Reference Range Interpretation Comments B/C Ratio (test code = B/C Ratio) 8 6-25 [facility]2015-12-18 10:58:00 Test Item Value Reference Range Interpretation Comments Globulin (test code = Globulin) 2.6 2.0-4.0 [facility]2015-12-18 10:58:00 Test Item Value Reference Range Interpretation Comments A/G Ratio (test code = A/G Ratio) 1.2 0.7-1.6 [facility]2015-12-18 10:58:00 Test Item Value Reference Range Interpretation Comments AGAP (test code = AGAP) 13.0 10.0-20.0 [facility]DnkywfiKTPJEEGQYG3284-09-45 10:58:00 Test Item Value Reference Range Interpretation Comments Segs (test code = Segs) 74.2 45.0-75.0 [facility] HospitalWutgeojZAQRSHVYTQ9655-16-95 10:58:00 Test Item Value Reference Range Interpretation Comments Lymphocytes (test code = Lymphocytes) 18.3 20.0-40.0 [facility] HospitalOlsxhblMZZUIUMKWO8711-02-77 10:58:00 Test Item Value Reference Range Interpretation Comments Monocytes (test code = Monocytes) 7.0 2.0-12.0 [facility] HospitalYalxoweRVGARGTRHN7990-79-58 10:58:00 Test Item Value Reference Range Interpretation Comments Basophils (test code = 0.3 See_Comment [Aut omated message] The Basophils) system which ge nerated this result tra nsmitted reference range : <=1.0. The reference r kat was not used to int erpret this result as normal/abnormal . [facility] HospitalTooblseAWLYLLFQSM3417-48-28 10:58:00 Test Item Value Reference Range Interpretation Comments Segs-Bands # (test code = Segs-Bands #) 8.1 1.5-8.1 [facility] HospitalGiscjryYPCXYDDBGR3541-63-02 10:58:00 Test Item Value Reference Range Interpretation Comments Eosinophils (test code = 0.2 See_Comment [A utomated message] The Eosinophils) system which ge nerated this result tra nsmitted reference range : <=4.0. The reference r kat was not used to int erpret this result as normal/abnormal . [facility] HospitalFvcovviBWHXQNFEGE5556-61-38 10:58:00 Test Item Value Reference Range Interpretation Comments Monocytes # (test code 0.8 See_Comment [Aut omated message] The = Monocytes #) system which generated this result tra nsmitted reference range : <=0.8. The reference r kat was not used to int erpret this result as normal/abnormal . [facility] HospitalXmqvvzwQMNRHAIADB4519-93-25 10:58:00 Test Item Value Reference Range Interpretation Comments Lymphocytes # (test code = Lymphocytes 2.0 1.0-5.5 #) [facility] HospitalEdtjvwyENJKHZDYIY6735-51-44 10:58:00 Test Item Value Reference Range Interpretation Comments Microcyte (test code = 1+ *ABN*(08/16/15 Microcyte) 4:58 AM) [place] 543935-12-18 10:58:00 Test Item Value Reference Range Interpretation Comments MPV (test code = MPV) 8.9 7.4-10.4 [facility] HospitalHjvyhyhWHOKDNGKKE3986-34-37 10:58:00 Test Item Value Reference Range Interpretation Comments MCV (test code = MCV) 77.3 80.0-98.0 [facility] HospitalFpttrpuDFWZHCCDXI0901-72-23 10:58:00 Test Item Value Reference Range Interpretation Comments Hgb (test code = Hgb) 11.9 12.0-16.0 [facility] HospitalOkzwzgvVKRFDTLIZO1280-81-08 10:58:00 Test Item Value Reference Range Interpretation Comments Hct (test code = Hct) 37.5 36.0-48.0 [facility] HospitalVmilyfxNNMENXIPKM2314-85-92 10:58:00 Test Item Value Reference Range Interpretation Comments MCH (test code = MCH) 24.5 pg 27.0-31.0 [facility] HospitalIvzwcucGWOBBFQPWL4545-11-99 10:58:00 Test Item Value Reference Range Interpretation Comments RBC (test code = RBC) 4.85 4.20-5.40 [facility] HospitalYphqoilEGWBUWYELI9668-71-63 10:58:00 Test Item Value Reference Range Interpretation Comments WBC (test code = WBC) 10.9 3.7-10.4 [facility] HospitalXyyiyalJXSULTKCDL5781-72-45 10:58:00 Test Item Value Reference Range Interpretation Comments RDW (test code = RDW) 15.9 11.5-14.5 [facility] HospitalDdauxlvAINPYCXCMP8360-80-94 10:58:00 Test Item Value Reference Range Interpretation Comments MCHC (test code = MCHC) 31.7 32.0-36.0 [facility] HospitalVetixamIQLWHAGFUV8850-50-60 10:58:00 Test Item Value Reference Range Interpretation Comments Platelet (test code = Platelet) 242 133-450 [facility]2015-12-18 10:58:00 Test Item Value Reference Range Interpretation Comments eGFR (test code = eGFR) 126 [facility]2015-12-18 10:58:00 Test Item Value Reference Range Interpretation Comments AST (test code = AST) 29 See_Comment [Auto mated message] The system which ge nerated this result transmit arvind reference range : <=37. The reference range was not used to interpr et this result as mario l/abnormal. [facility]2015-12-18 10:58:00 Test Item Value Reference Range Interpretation Comments Alk Phos (test code = Alk Phos) 86 39-136 [facility]2015-12-18 10:58:00 Test Item Value Reference Range Interpretation Comments Bili Total (test code = Bili Total) 0.3 0.2-1.3 [facility]2015-12-18 10:58:00 Test Item Value Reference Range Interpretation Comments ALT (test code = ALT) 50 See_Comment [Auto mated message] The system which ge nerated this result transmit arvind reference range : <=65. The reference range was not used to interpr et this result as mario l/abnormal. [facility]2015-12-18 10:58:00 Test Item Value Reference Range Interpretation Comments Sodium Lvl (test code = Sodium Lvl) 136 135-145 [facility]2015-12-18 10:58:00 Test Item Value Reference Range Interpretation Comments Potassium Lvl (test code = Potassium 4.0 3.5-5.1 Lvl) [facility]2015-12-18 10:58:00 Test Item Value Reference Range Interpretation Comments Creatinine Lvl (test code = Creatinine 0.62 0.50-1.40 Lvl) [facility]2015-12-18 10:58:00 Test Item Value Reference Range Interpretation Comments Glucose Lvl (test code = Glucose Lvl) 101 70-99 [facility]2015-12-18 10:58:00 Test Item Value Reference Range Interpretation Comments BUN (test code = BUN) 5 7-22 [facility]2015-12-18 10:58:00 Test Item Value Reference Range Interpretation Comments Total Protein (test code = Total 5.8 6.4-8.4 Protein) [facility]2015-12-18 10:58:00 Test Item Value Reference Range Interpretation Comments Albumin Lvl (test code = Albumin Lvl) 3.2 3.5-5.0 [facility]2015-12-18 10:58:00 Test Item Value Reference Range Interpretation Comments Chloride Lvl (test code = Chloride Lvl) 100 95-109 [facility]2015-12-18 10:58:00 Test Item Value Reference Range Interpretation Comments Calcium Lvl (test code = Calcium Lvl) 8.6 8.5-10.5 [facility]2015-12-18 10:58:00 Test Item Value Reference Range Interpretation Comments CO2 (test code = CO2) 27 24-32 [facility]2015-12-18 10:58:00 Test Item Value Reference Range Interpretation Comments B/C Ratio (test code = B/C Ratio) 8 6-25 [facility]2015-12-18 10:58:00 Test Item Value Reference Range Interpretation Comments Globulin (test code = Globulin) 2.6 2.0-4.0 [facility]2015-12-18 10:58:00 Test Item Value Reference Range Interpretation Comments A/G Ratio (test code = A/G Ratio) 1.2 0.7-1.6 [facility]2015-12-18 10:58:00 Test Item Value Reference Range Interpretation Comments AGAP (test code = AGAP) 13.0 10.0-20.0 [facility] HospitalRrqaltlDRGQWRSLVO7524-12-71 10:58:00 Test Item Value Reference Range Interpretation Comments Segs (test code = Segs) 74.2 45.0-75.0 [facility] HospitalGkxofnjRJVDGRFJXK0770-54-68 10:58:00 Test Item Value Reference Range Interpretation Comments Lymphocytes (test code = Lymphocytes) 18.3 20.0-40.0 [facility] HospitalSsdxmhpOHZFDPIATL6578-39-56 10:58:00 Test Item Value Reference Range Interpretation Comments Monocytes (test code = Monocytes) 7.0 2.0-12.0 [facility] HospitalNiriiuuSRJKXNPTSF6090-46-45 10:58:00 Test Item Value Reference Range Interpretation Comments Basophils (test code = 0.3 See_Comment [Aut omated message] The Basophils) system which ge nerated this result tra nsmitted reference range : <=1.0. The reference r kat was not used to int erpret this result as normal/abnormal . [facility] HospitalVvkjgqsPKKYEBBPVL4193-30-25 10:58:00 Test Item Value Reference Range Interpretation Comments Segs-Bands # (test code = Segs-Bands #) 8.1 1.5-8.1 [facility] HospitalMufudwvLDTMHTVAWP9259-19-06 10:58:00 Test Item Value Reference Range Interpretation Comments Eosinophils (test code = 0.2 See_Comment [A utomated message] The Eosinophils) system which ge nerated this result tra nsmitted reference range : <=4.0. The reference r kat was not used to int erpret this result as normal/abnormal . [facility] HospitalFfeufokMPXVWVRNUK8892-63-91 10:58:00 Test Item Value Reference Range Interpretation Comments Monocytes # (test code 0.8 See_Comment [Aut omated message] The = Monocytes #) system which generated this result tra nsmitted reference range : <=0.8. The reference r kat was not used to int erpret this result as normal/abnormal . [facility] HospitalLsbklvpKRFGRATUCA2680-22-15 10:58:00 Test Item Value Reference Range Interpretation Comments Lymphocytes # (test code = Lymphocytes 2.0 1.0-5.5 #) [facility] HospitalVtnxwejQTTLLLIWVU8186-79-34 10:58:00 Test Item Value Reference Range Interpretation Comments Microcyte (test code = 1+ *ABN*(08/16/15 Microcyte) 4:58 AM) [facility] HospitalRtgcqncYTZYKBZHBN0537-59-49 10:58:00 Test Item Value Reference Range Interpretation Comments MPV (test code = MPV) 8.9 7.4-10.4 [facility] HospitalNvrbautVMHYNDKYMN0700-86-48 10:58:00 Test Item Value Reference Range Interpretation Comments MCV (test code = MCV) 77.3 80.0-98.0 [facility] HospitalWkkchrpTVCYWMPJEZ3784-79-92 10:58:00 Test Item Value Reference Range Interpretation Comments Hgb (test code = Hgb) 11.9 12.0-16.0 [facility] HospitalAifrybrSZETXTWRLP1672-36-67 10:58:00 Test Item Value Reference Range Interpretation Comments Hct (test code = Hct) 37.5 36.0-48.0 [facility] HospitalJkfzrvxTZIIEPOKYA0603-67-88 10:58:00 Test Item Value Reference Range Interpretation Comments MCH (test code = MCH) 24.5 pg 27.0-31.0 [facility] HospitalVvowurwCNURMRKIIL3556-79-89 10:58:00 Test Item Value Reference Range Interpretation Comments RBC (test code = RBC) 4.85 4.20-5.40 [facility] HospitalYewxxhdZSXBAERXKI0437-12-50 10:58:00 Test Item Value Reference Range Interpretation Comments WBC (test code = WBC) 10.9 3.7-10.4 [facility] HospitalEwdfjflHTBDQVQPQD3882-40-71 10:58:00 Test Item Value Reference Range Interpretation Comments RDW (test code = RDW) 15.9 11.5-14.5 [facility] HospitalSgkaxhaOGJBGJUTXJ9827-04-74 10:58:00 Test Item Value Reference Range Interpretation Comments MCHC (test code = MCHC) 31.7 32.0-36.0 [facility] HospitalAgcwzbmUVMXVCPOEE7685-15-35 10:58:00 Test Item Value Reference Range Interpretation Comments Platelet (test code = Platelet) 242 133-450 [facility]2015-12-14 15:29:00 Test Item Value Reference Range Interpretation Comments eGFR (test code = eGFR) 101 [facility]2015-12-14 15:29:00 Test Item Value Reference Range Interpretation Comments Creatinine Lvl (test code = Creatinine 0.81 0.50-1.40 Lvl) [facility]2015-12-14 15:29:00 Test Item Value Reference Range Interpretation Comments CO2 (test code = CO2) 27 24-32 [facility]2015-12-14 15:29:00 Test Item Value Reference Range Interpretation Comments Calcium Lvl (test code = Calcium Lvl) 9.7 8.5-10.5 [facility]2015-12-14 15:29:00 Test Item Value Reference Range Interpretation Comments Chloride Lvl (test code = Chloride Lvl) 100 95-109 [facility]2015-12-14 15:29:00 Test Item Value Reference Range Interpretation Comments BUN (test code = BUN) 13 7-22 [facility]2015-12-14 15:29:00 Test Item Value Reference Range Interpretation Comments Glucose Lvl (test code = Glucose Lvl) 89 70-99 [facility]2015-12-14 15:29:00 Test Item Value Reference Range Interpretation Comments Potassium Lvl (test code = Potassium 4.2 3.5-5.1 Lvl) [facility]2015-12-14 15:29:00 Test Item Value Reference Range Interpretation Comments Sodium Lvl (test code = Sodium Lvl) 134 135-145 [facility]2015-12-14 15:29:00 Test Item Value Reference Range Interpretation Comments AGAP (test code = AGAP) 11.2 10.0-20.0 [facility] HospitalIygaallBNBFXWFIPS7944-26-81 15:29:00 Test Item Value Reference Range Interpretation Comments MPV (test code = MPV) 9.2 7.4-10.4 [facility] HospitalXlguwnfGCQHGERIAN1275-91-35 15:29:00 Test Item Value Reference Range Interpretation Comments Platelet (test code = Platelet) 307 133-450 [facility] HospitalKlkoemzDNUNYBAUZL9083-63-22 15:29:00 Test Item Value Reference Range Interpretation Comments MCH (test code = MCH) 24.3 pg 27.0-31.0 [facility] HospitalCumnkzuJDIEFBIRQP4509-48-37 15:29:00 Test Item Value Reference Range Interpretation Comments RDW (test code = RDW) 15.7 11.5-14.5 [facility] HospitalRikaboyVKUHWNXBTQ3716-38-54 15:29:00 Test Item Value Reference Range Interpretation Comments MCHC (test code = MCHC) 31.2 32.0-36.0 [facility] HospitalBhtbzwcIHJMTVPHMA9779-37-57 15:29:00 Test Item Value Reference Range Interpretation Comments MCV (test code = MCV) 78.0 80.0-98.0 [facility] HospitalZezehadDRKFHBCCFV5772-01-61 15:29:00 Test Item Value Reference Range Interpretation Comments WBC (test code = WBC) 8.6 3.7-10.4 [place] 543935-12-14 15:29:00 Test Item Value Reference Range Interpretation Comments Hgb (test code = Hgb) 13.2 12.0-16.0 [facility] HospitalMmzcuicMQVUIQDSAN7229-44-67 15:29:00 Test Item Value Reference Range Interpretation Comments RBC (test code = RBC) 5.41 4.20-5.40 [facility] HospitalGufkdlgUBBTXEMPUS9557-47-40 15:29:00 Test Item Value Reference Range Interpretation Comments Hct (test code = Hct) 42.1 36.0-48.0 [facility] HospitalIahdblvFDKPIABMXZ3666-83-44 15:29:00 Test Item Value Reference Range Interpretation Comments Lymphocytes # (test code = Lymphocytes 3.2 1.0-5.5 #) [facility] HospitalKucryxwBCCAAFHIAC8392-12-81 15:29:00 Test Item Value Reference Range Interpretation Comments Eosinophils # (test code 0.1 See_Comment [A utomated message] The = Eosinophils #) system wh h generated this result tra nsmitted reference range : <=0.5. The reference r kat was not used to int erpret this result as normal/abnormal . [facility] HospitalPgnugwjPMUWMHVERM1836-50-44 15:29:00 Test Item Value Reference Range Interpretation Comments Monocytes # (test code 0.8 See_Comment [Aut omated message] The = Monocytes #) system which generated this result tra nsmitted reference range : <=0.8. The reference r kat was not used to int erpret this result as normal/abnormal . [facility] HospitalWomeioyXEKJSILHRO8928-39-15 15:29:00 Test Item Value Reference Range Interpretation Comments Basophils (test code = 0.7 See_Comment [Aut omated message] The Basophils) system which ge nerated this result tra nsmitted reference range : <=1.0. The reference r kat was not used to int erpret this result as normal/abnormal . [facility] HospitalPwfidmcOXSKBIGGDZ2710-21-62 15:29:00 Test Item Value Reference Range Interpretation Comments Segs-Bands # (test code = Segs-Bands #) 4.4 1.5-8.1 [facility] HospitalKyxhgllTBDMCQJHIL7051-71-70 15:29:00 Test Item Value Reference Range Interpretation Comments Eosinophils (test code = 1.2 See_Comment [A utomated message] The Eosinophils) system which ge nerated this result tra nsmitted reference range : <=4.0. The reference r kat was not used to int erpret this result as normal/abnormal . [facility]XlpvznnGPJIXHMNNT6459-81-48 15:29:00 Test Item Value Reference Range Interpretation Comments Lymphocytes (test code = Lymphocytes) 37.4 20.0-40.0 [facility] HospitalOghevsuPCFGZTPKZL4217-20-73 15:29:00 Test Item Value Reference Range Interpretation Comments Monocytes (test code = Monocytes) 8.9 2.0-12.0 [facility] HospitalGtqaavwLSLTCTPOQA9275-34-25 15:29:00 Test Item Value Reference Range Interpretation Comments Segs (test code = Segs) 51.8 45.0-75.0 [facility] HospitalLvvdonpPQKXBOVXOB7344-18-88 15:29:00 Test Item Value Reference Range Interpretation Comments Microcyte (test code = 1+ *ABN*(08/12/15 Microcyte) 9:29 AM) [facility]xojOTOWWBRWGF9524-77-28 15:29:00 Test Item Value Reference Range Interpretation Comments Basophils # (test code 0.1 See_Comment [Aut omated message] The = Basophils #) system which generated this result tra nsmitted reference range : <=0.2. The reference r kat was not used to int erpret this result as normal/abnormal . [facility]URINE VLQW4950-79-67 15:29:00 Test Item Value Reference Range Interpretation Comments U Preg (test code = U Negative (08/12/15 9:29 Preg) AM) [facility]annCHEM HLVBM6306-54-61 15:29:00 Test Item Value Reference Range Interpretation Comments eGFR (test code = eGFR) 101 [facility]annCHEM GUCAN2689-66-22 15:29:00 Test Item Value Reference Range Interpretation Comments Creatinine Lvl (test code = Creatinine 0.81 0.50-1.40 Lvl) [facility]annCHEM UWDQT4451-98-81 15:29:00 Test Item Value Reference Range Interpretation Comments CO2 (test code = CO2) 27 24-32 [facility]annCHEM YACKK5961-81-49 15:29:00 Test Item Value Reference Range Interpretation Comments Calcium Lvl (test code = Calcium Lvl) 9.7 8.5-10.5 [facility]CHE[facility] KMLTI6960-25-48 15:29:00 Test Item Value Reference Range Interpretation Comments Chloride Lvl (test code = Chloride Lvl) 100 95-109 [facility]2015-12-14 15:29:00 Test Item Value Reference Range Interpretation Comments BUN (test code = BUN) 13 7-22 [facility]2015-12-14 15:29:00 Test Item Value Reference Range Interpretation Comments Glucose Lvl (test code = Glucose Lvl) 89 70-99 [facility]2015-12-14 15:29:00 Test Item Value Reference Range Interpretation Comments Potassium Lvl (test code = Potassium 4.2 3.5-5.1 Lvl) [facility]2015-12-14 15:29:00 Test Item Value Reference Range Interpretation Comments Sodium Lvl (test code = Sodium Lvl) 134 135-145 [facility]2015-12-14 15:29:00 Test Item Value Reference Range Interpretation Comments AGAP (test code = AGAP) 11.2 10.0-20.0 [facility] HospitalGlbpjcmDTRNFJJYDX6068-57-09 15:29:00 Test Item Value Reference Range Interpretation Comments MPV (test code = MPV) 9.2 7.4-10.4 [facility] HospitalLekhbrdOBUYATHHUR9992-99-83 15:29:00 Test Item Value Reference Range Interpretation Comments Platelet (test code = Platelet) 307 133-450 [facility] HospitalJmavjqsQWOKLDTPYD8591-62-08 15:29:00 Test Item Value Reference Range Interpretation Comments MCH (test code = MCH) 24.3 pg 27.0-31.0 [facility] HospitalHfizpemRLBPXWMXCU8711-42-57 15:29:00 Test Item Value Reference Range Interpretation Comments RDW (test code = RDW) 15.7 11.5-14.5 [facility] HospitalJntaodeVHSZDJBTNX7229-18-74 15:29:00 Test Item Value Reference Range Interpretation Comments MCHC (test code = MCHC) 31.2 32.0-36.0 [facility] HospitalSizdocwDBMVZYENCV7164-50-22 15:29:00 Test Item Value Reference Range Interpretation Comments MCV (test code = MCV) 78.0 80.0-98.0 [facility] HospitalFymjtahNNUBGMGGRF2686-91-00 15:29:00 Test Item Value Reference Range Interpretation Comments WBC (test code = WBC) 8.6 3.7-10.4 [facility] HospitalZkbiiftTWBTCHOETZ5055-54-59 15:29:00 Test Item Value Reference Range Interpretation Comments Hgb (test code = Hgb) 13.2 12.0-16.0 [facility] HospitalClgsosaYKSGMALRAH7256-88-65 15:29:00 Test Item Value Reference Range Interpretation Comments RBC (test code = RBC) 5.41 4.20-5.40 [facility] HospitalZqmoevbAOQEFOYYEF6097-55-74 15:29:00 Test Item Value Reference Range Interpretation Comments Hct (test code = Hct) 42.1 36.0-48.0 [facility] HospitalQcwubeiPSQXTLEXOU3504-06-03 15:29:00 Test Item Value Reference Range Interpretation Comments Lymphocytes # (test code = Lymphocytes 3.2 1.0-5.5 #) [facility]AvmeekzSXSKDCVLWJ4777-77-25 15:29:00 Test Item Value Reference Range Interpretation Comments Eosinophils # (test code 0.1 See_Comment [A utomated message] The = Eosinophils #) system whic h generated this result tra nsmitted reference range : <=0.5. The reference r kat was not used to int erpret this result as normal/abnormal . [facility] HospitalWexxhydPZPCHFLUDQ2479-41-54 15:29:00 Test Item Value Reference Range Interpretation Comments Monocytes # (test code 0.8 See_Comment [Aut omated message] The = Monocytes #) system which generated this result tra nsmitted reference range : <=0.8. The reference r kat was not used to int erpret this result as normal/abnormal . [facility] HospitalEtbbbjoQZSPTBMSTP4387-85-09 15:29:00 Test Item Value Reference Range Interpretation Comments Basophils (test code = 0.7 See_Comment [Aut omated message] The Basophils) system which ge nerated this result tra nsmitted reference range : <=1.0. The reference r kat was not used to int erpret this result as normal/abnormal . [facility] HospitalRimkijfZSGZCGLNXU4198-99-42 15:29:00 Test Item Value Reference Range Interpretation Comments Segs-Bands # (test code = Segs-Bands #) 4.4 1.5-8.1 [facility] HospitalSpbqnkpQDTVKKCPCH7813-23-93 15:29:00 Test Item Value Reference Range Interpretation Comments Eosinophils (test code = 1.2 See_Comment [A utomated message] The Eosinophils) system which ge nerated this result tra nsmitted reference range : <=4.0. The reference r kat was not used to int erpret this result as normal/abnormal . [facility]AsvuaeuSTMJCHEURA3037-67-16 15:29:00 Test Item Value Reference Range Interpretation Comments Lymphocytes (test code = Lymphocytes) 37.4 20.0-40.0 [facility]KlhldgvSCWQDCQNXL2281-94-55 15:29:00 Test Item Value Reference Range Interpretation Comments Monocytes (test code = Monocytes) 8.9 2.0-12.0 [facility] SystemLtfmchgUQJOJQTYDQ9213-05-74 15:29:00 Test Item Value Reference Range Interpretation Comments Segs (test code = Segs) 51.8 45.0-75.0 [facility] SystemLshxzfrASNNALKOQU3746-14-05 15:29:00 Test Item Value Reference Range Interpretation Comments Microcyte (test code = 1+ *ABN*(08/12/15 Microcyte) 9:29 AM) [facility] SystemNeweldcGAGCRVZPVA9839-34-24 15:29:00 Test Item Value Reference Range Interpretation Comments Basophils # (test code 0.1 See_Comment [Aut omated message] The = Basophils #) system which generated this result tra nsmitted reference range : <=0.2. The reference r kat was not used to int erpret this result as normal/abnormal . [facility] [id number] 15:29:00 Test Item Value Reference Range Interpretation Comments U Preg (test code = U Negative (08/12/15 9:29 Preg) AM) [facility] [id number] 15:29:00 Test Item Value Reference Range Interpretation Comments eGFR (test code = eGFR) 101 [facility]CHE[facility] [id number] 15:29:00 Test Item Value Reference Range Interpretation Comments Creatinine Lvl (test code = Creatinine 0.81 0.50-1.40 Lvl) [facility] GEXQS6488-24-08 15:29:00 Test Item Value Reference Range Interpretation Comments CO2 (test code = CO2) 27 24-32 [facility]CHE[facility] LJMJF1127-67-36 15:29:00 Test Item Value Reference Range Interpretation Comments Calcium Lvl (test code = Calcium Lvl) 9.7 8.5-10.5 [facility]annCHE[facility] WZEGZ2886-22-67 15:29:00 Test Item Value Reference Range Interpretation Comments Chloride Lvl (test code = Chloride Lvl) 100 95-109 [facility]2015-12-14 15:29:00 Test Item Value Reference Range Interpretation Comments BUN (test code = BUN) 13 7-22 [facility]2015-12-14 15:29:00 Test Item Value Reference Range Interpretation Comments Glucose Lvl (test code = Glucose Lvl) 89 70-99 [facility]2015-12-14 15:29:00 Test Item Value Reference Range Interpretation Comments Potassium Lvl (test code = Potassium 4.2 3.5-5.1 Lvl) [facility]2015-12-14 15:29:00 Test Item Value Reference Range Interpretation Comments Sodium Lvl (test code = Sodium Lvl) 134 135-145 [facility]2015-12-14 15:29:00 Test Item Value Reference Range Interpretation Comments AGAP (test code = AGAP) 11.2 10.0-20.0 [facility] HospitalGwkiljiFLSZIQLTEP8857-17-02 15:29:00 Test Item Value Reference Range Interpretation Comments MPV (test code = MPV) 9.2 7.4-10.4 [facility] HospitalEjkaikbWFFPBUFWAK3144-25-28 15:29:00 Test Item Value Reference Range Interpretation Comments Platelet (test code = Platelet) 307 133-450 [facility] HospitalKjviqhfAYPOHMOBIN6337-16-34 15:29:00 Test Item Value Reference Range Interpretation Comments MCH (test code = MCH) 24.3 pg 27.0-31.0 [facility] HospitalRbtmxcuIUAMCIKXPN7948-35-13 15:29:00 Test Item Value Reference Range Interpretation Comments RDW (test code = RDW) 15.7 11.5-14.5 [facility] HospitalRmlvvagQSQJOAASQC1660-28-70 15:29:00 Test Item Value Reference Range Interpretation Comments MCHC (test code = MCHC) 31.2 32.0-36.0 [facility] HospitalFchispiCPSSDLIINV1299-22-40 15:29:00 Test Item Value Reference Range Interpretation Comments MCV (test code = MCV) 78.0 80.0-98.0 [facility] HospitalNnehqfwAYIYESAIHK4596-00-32 15:29:00 Test Item Value Reference Range Interpretation Comments WBC (test code = WBC) 8.6 3.7-10.4 [facility] HospitalTikckgkLTBAIMAOXQ5396-85-80 15:29:00 Test Item Value Reference Range Interpretation Comments Hgb (test code = Hgb) 13.2 12.0-16.0 [facility] HospitalKtlxzhzPXCMDUKXNQ2973-38-77 15:29:00 Test Item Value Reference Range Interpretation Comments RBC (test code = RBC) 5.41 4.20-5.40 [facility] HospitalMajrtbnWBHVCKGEQO1510-22-38 15:29:00 Test Item Value Reference Range Interpretation Comments Hct (test code = Hct) 42.1 36.0-48.0 [facility] HospitalIolpgtwPZDMZUAYTB7970-81-99 15:29:00 Test Item Value Reference Range Interpretation Comments Lymphocytes # (test code = Lymphocytes 3.2 1.0-5.5 #) [facility] HospitalCfsfrzbGWASOBNIFQ3946-85-94 15:29:00 Test Item Value Reference Range Interpretation Comments Eosinophils # (test code 0.1 See_Comment [A utomated message] The = Eosinophils #) system wh h generated this result tra nsmitted reference range : <=0.5. The reference r kat was not used to int erpret this result as normal/abnormal . [facility] HospitalQslgxznIIANRBIVIC2410-06-59 15:29:00 Test Item Value Reference Range Interpretation Comments Monocytes # (test code 0.8 See_Comment [Aut omated message] The = Monocytes #) system which generated this result tra nsmitted reference range : <=0.8. The reference r kat was not used to int erpret this result as normal/abnormal . [facility] HospitalVernhzcSMYKINGFRY2013-55-78 15:29:00 Test Item Value Reference Range Interpretation Comments Basophils (test code = 0.7 See_Comment [Aut omated message] The Basophils) system which ge nerated this result tra nsmitted reference range : <=1.0. The reference r kat was not used to int erpret this result as normal/abnormal . [facility] HospitalJvvgxjuZMXAEKOHGC7013-35-35 15:29:00 Test Item Value Reference Range Interpretation Comments Segs-Bands # (test code = Segs-Bands #) 4.4 1.5-8.1 [facility] HospitalIgkwrqkWOFJXPCMZP7755-16-00 15:29:00 Test Item Value Reference Range Interpretation Comments Eosinophils (test code = 1.2 See_Comment [A utomated message] The Eosinophils) system which ge nerated this result tra nsmitted reference range : <=4.0. The reference r kat was not used to int erpret this result as normal/abnormal . [facility] SystemCodzfyrCEITYBTWOS5527-29-58 15:29:00 Test Item Value Reference Range Interpretation Comments Lymphocytes (test code = Lymphocytes) 37.4 20.0-40.0 [facility] SystemMmzoogbGUAANJDXJC9588-13-83 15:29:00 Test Item Value Reference Range Interpretation Comments Monocytes (test code = Monocytes) 8.9 2.0-12.0 [facility] SystemXnewumaJXTZLLNBTJ6792-85-17 15:29:00 Test Item Value Reference Range Interpretation Comments Segs (test code = Segs) 51.8 45.0-75.0 [facility] HospitalQkzkhstRNVINAQPJR9103-58-89 15:29:00 Test Item Value Reference Range Interpretation Comments Microcyte (test code = 1+ *ABN*(08/12/15 Microcyte) 9:29 AM) [facility] SystemEbpzyqaYGBZEKQALX5639-86-83 15:29:00 Test Item Value Reference Range Interpretation Comments Basophils # (test code 0.1 See_Comment [Aut omated message] The = Basophils #) system which generated this result tra nsmitted reference range : <=0.2. The reference r kat was not used to int erpret this result as normal/abnormal . [facility] [id number] 15:29:00 Test Item Value Reference Range Interpretation Comments U Preg (test code = U Negative (08/12/15 9:29 Preg) AM) [facility] [id number] 15:29:00 Test Item Value Reference Range Interpretation Comments eGFR (test code = eGFR) [address] [facility] [id number] 15:29:00 Test Item Value Reference Range Interpretation Comments Creatinine Lvl (test code = Creatinine 0.81 0.50-1.40 Lvl) [facility] [id number] 15:29:00 Test Item Value Reference Range Interpretation Comments CO2 (test code = CO2) 27 24-[address] [facility] [id number] 15:29:00 Test Item Value Reference Range Interpretation Comments Calcium Lvl (test code = Calcium Lvl) 9.7 8.5-10.[address] [facility] [id number] 15:29:00 Test Item Value Reference Range Interpretation Comments Chloride Lvl (test code = Chloride Lvl) 100 95-109 [facility]2015-12-14 15:29:00 Test Item Value Reference Range Interpretation Comments BUN (test code = BUN) 13 7-22 [facility]2015-12-14 15:29:00 Test Item Value Reference Range Interpretation Comments Glucose Lvl (test code = Glucose Lvl) 89 70-99 [facility]2015-12-14 15:29:00 Test Item Value Reference Range Interpretation Comments Potassium Lvl (test code = Potassium 4.2 3.5-5.1 Lvl) [facility]2015-12-14 15:29:00 Test Item Value Reference Range Interpretation Comments Sodium Lvl (test code = Sodium Lvl) 134 135-145 [facility]2015-12-14 15:29:00 Test Item Value Reference Range Interpretation Comments AGAP (test code = AGAP) 11.2 10.0-20.0 [facility] HospitalJkkkkbjLBQRGZWXPG6086-57-44 15:29:00 Test Item Value Reference Range Interpretation Comments MPV (test code = MPV) 9.2 7.4-10.4 [facility] HospitalCoudzvfHGEVSMETUJ8504-70-05 15:29:00 Test Item Value Reference Range Interpretation Comments Platelet (test code = Platelet) 307 133-450 [facility] HospitalTloznlpKBZQPWYXOW9378-03-78 15:29:00 Test Item Value Reference Range Interpretation Comments MCH (test code = MCH) 24.3 pg 27.0-31.0 [facility] HospitalUplhpanUDMCPLSBTG9583-63-14 15:29:00 Test Item Value Reference Range Interpretation Comments RDW (test code = RDW) 15.7 11.5-14.5 [facility] HospitalWllyokjHRWMIXEVFG8234-55-01 15:29:00 Test Item Value Reference Range Interpretation Comments MCHC (test code = MCHC) 31.2 32.0-36.0 [facility] HospitalHjobsywKIXVNZNFAI1130-52-57 15:29:00 Test Item Value Reference Range Interpretation Comments MCV (test code = MCV) 78.0 80.0-98.0 [facility] HospitalKvytrzuZIRVGUFVGV9996-11-57 15:29:00 Test Item Value Reference Range Interpretation Comments WBC (test code = WBC) 8.6 3.7-10.4 [facility] HospitalNtydkvvCLVJVKWKAN5364-21-44 15:29:00 Test Item Value Reference Range Interpretation Comments Hgb (test code = Hgb) 13.2 12.0-16.0 [facility] HospitalOdmsjmdBNOXQJBLAW9921-01-42 15:29:00 Test Item Value Reference Range Interpretation Comments RBC (test code = RBC) 5.41 4.20-5.40 [facility] HospitalCyxjqviEFQXHZZOHF1294-58-20 15:29:00 Test Item Value Reference Range Interpretation Comments Hct (test code = Hct) 42.1 36.0-48.0 [facility] HospitalAtqqnfrUMLFZSZROA4830-76-24 15:29:00 Test Item Value Reference Range Interpretation Comments Lymphocytes # (test code = Lymphocytes 3.2 1.0-5.5 #) [facility] HospitalCwqluinXEYDRBOFNL4406-92-05 15:29:00 Test Item Value Reference Range Interpretation Comments Eosinophils # (test code 0.1 See_Comment [A utomated message] The = Eosinophils #) system wh h generated this result tra nsmitted reference range : <=0.5. The reference r kat was not used to int erpret this result as normal/abnormal . [facility] HospitalIjtdlwsAGSULKLLGO8033-72-89 15:29:00 Test Item Value Reference Range Interpretation Comments Monocytes # (test code 0.8 See_Comment [Aut omated message] The = Monocytes #) system which generated this result tra nsmitted reference range : <=0.8. The reference r kat was not used to int erpret this result as normal/abnormal . [facility] HospitalAnvzqolUOEFULCGSP3498-04-94 15:29:00 Test Item Value Reference Range Interpretation Comments Basophils (test code = 0.7 See_Comment [Aut omated message] The Basophils) system which ge nerated this result tra nsmitted reference range : <=1.0. The reference r kat was not used to int erpret this result as normal/abnormal . [facility] HospitalXacqvcuWVCJCDJUOX5156-18-71 15:29:00 Test Item Value Reference Range Interpretation Comments Segs-Bands # (test code = Segs-Bands #) 4.4 1.5-8.1 [facility] HospitalEcpuknwTGBCPMGELI9814-97-28 15:29:00 Test Item Value Reference Range Interpretation Comments Eosinophils (test code = 1.2 See_Comment [A utomated message] The Eosinophils) system which ge nerated this result tra nsmitted reference range : <=4.0. The reference r kat was not used to int erpret this result as normal/abnormal . [facility]PuhjgidZWGKDMYYXD6490-45-74 15:29:00 Test Item Value Reference Range Interpretation Comments Lymphocytes (test code = Lymphocytes) 37.4 20.0-40.0 [facility] SystemJyysroxBPGMQOGJYX9686-11-96 15:29:00 Test Item Value Reference Range Interpretation Comments Monocytes (test code = Monocytes) 8.9 2.0-12.0 [facility] SystemBlubfkyAWMUGAYBIG0132-66-06 15:29:00 Test Item Value Reference Range Interpretation Comments Segs (test code = Segs) 51.8 45.0-75.0 [facility] SystemCpkqasxFSRUPVJEBL9434-91-58 15:29:00 Test Item Value Reference Range Interpretation Comments Microcyte (test code = 1+ *ABN*(08/12/15 Microcyte) 9:29 AM) [facility] SystemLxemexsRYISXLRYMP5198-57-81 15:29:00 Test Item Value Reference Range Interpretation Comments Basophils # (test code 0.1 See_Comment [Aut omated message] The = Basophils #) system which generated this result tra nsmitted reference range : <=0.2. The reference r kat was not used to int erpret this result as normal/abnormal . [facility] [id number] 15:29:00 Test Item Value Reference Range Interpretation Comments U Preg (test code = U Negative (08/12/15 9:29 Preg) AM) [facility] [id number] 15:29:00 Test Item Value Reference Range Interpretation Comments eGFR (test code = eGFR) [address] [facility] [id number] 15:29:00 Test Item Value Reference Range Interpretation Comments Creatinine Lvl (test code = Creatinine 0.81 0.50-1.40 Lvl) [facility] QTYEP0911-16-05 15:29:00 Test Item Value Reference Range Interpretation Comments CO2 (test code = CO2) 27 24-[address] [facility] [id number] 15:29:00 Test Item Value Reference Range Interpretation Comments Calcium Lvl (test code = Calcium Lvl) 9.7 8.5-10.[address] [facility] [id number] 15:29:00 Test Item Value Reference Range Interpretation Comments Chloride Lvl (test code = Chloride Lvl) 100 95-109 [facility]2015-12-14 15:29:00 Test Item Value Reference Range Interpretation Comments BUN (test code = BUN) 13 7-22 [facility]2015-12-14 15:29:00 Test Item Value Reference Range Interpretation Comments Glucose Lvl (test code = Glucose Lvl) 89 70-99 [facility]2015-12-14 15:29:00 Test Item Value Reference Range Interpretation Comments Potassium Lvl (test code = Potassium 4.2 3.5-5.1 Lvl) [facility]2015-12-14 15:29:00 Test Item Value Reference Range Interpretation Comments Sodium Lvl (test code = Sodium Lvl) 134 135-145 [facility]2015-12-14 15:29:00 Test Item Value Reference Range Interpretation Comments AGAP (test code = AGAP) 11.2 10.0-20.0 [facility] HospitalGxlfjofAUSZBPQANF0851-85-44 15:29:00 Test Item Value Reference Range Interpretation Comments MPV (test code = MPV) 9.2 7.4-10.4 [facility] HospitalTjxnrjcGONDCKPMTD1469-08-02 15:29:00 Test Item Value Reference Range Interpretation Comments Platelet (test code = Platelet) 307 133-450 [facility] HospitalPvsjtvqWCDLWMEAYV6205-02-03 15:29:00 Test Item Value Reference Range Interpretation Comments MCH (test code = MCH) 24.3 pg 27.0-31.0 [facility] HospitalNmmguybALTWBJFXLR5270-02-00 15:29:00 Test Item Value Reference Range Interpretation Comments RDW (test code = RDW) 15.7 11.5-14.5 [facility] HospitalCegzzmmXFAFHWTXUZ8636-24-49 15:29:00 Test Item Value Reference Range Interpretation Comments MCHC (test code = MCHC) 31.2 32.0-36.0 [facility] HospitalUmfpgyrYYYTYSYEGW6935-23-34 15:29:00 Test Item Value Reference Range Interpretation Comments MCV (test code = MCV) 78.0 80.0-98.0 [place] 543935-12-14 15:29:00 Test Item Value Reference Range Interpretation Comments WBC (test code = WBC) 8.6 3.7-10.4 [facility] HospitalDypnjfkMBMSYKTLGD9736-05-40 15:29:00 Test Item Value Reference Range Interpretation Comments Hgb (test code = Hgb) 13.2 12.0-16.0 [facility] HospitalYkuqnxiWPBZWZEAGO2987-05-55 15:29:00 Test Item Value Reference Range Interpretation Comments RBC (test code = RBC) 5.41 4.20-5.40 [facility] HospitalPokiijvTUELAFXMTP7984-08-58 15:29:00 Test Item Value Reference Range Interpretation Comments Hct (test code = Hct) 42.1 36.0-48.0 [facility] HospitalPfyqjruGTKZUHVZQS0771-20-44 15:29:00 Test Item Value Reference Range Interpretation Comments Lymphocytes # (test code = Lymphocytes 3.2 1.0-5.5 #) [facility] HospitalPppodnzXZJTHFMVKZ0836-60-60 15:29:00 Test Item Value Reference Range Interpretation Comments Eosinophils # (test code 0.1 See_Comment [A utomated message] The = Eosinophils #) system wh h generated this result tra nsmitted reference range : <=0.5. The reference r kat was not used to int erpret this result as normal/abnormal . [facility] HospitalBrifwreYCCXOJIUSI4456-17-44 15:29:00 Test Item Value Reference Range Interpretation Comments Monocytes # (test code 0.8 See_Comment [Aut omated message] The = Monocytes #) system which generated this result tra nsmitted reference range : <=0.8. The reference r kat was not used to int erpret this result as normal/abnormal . [facility] HospitalDmtqztdMPRWWEVRGC9250-21-59 15:29:00 Test Item Value Reference Range Interpretation Comments Basophils (test code = 0.7 See_Comment [Aut omated message] The Basophils) system which ge nerated this result tra nsmitted reference range : <=1.0. The reference r kat was not used to int erpret this result as normal/abnormal . [facility] HospitalCbtioraPWPENXDFPS4732-78-66 15:29:00 Test Item Value Reference Range Interpretation Comments Segs-Bands # (test code = Segs-Bands #) 4.4 1.5-8.1 [facility] HospitalRywqwwyPUIGZBVIEX3402-46-51 15:29:00 Test Item Value Reference Range Interpretation Comments Eosinophils (test code = 1.2 See_Comment [A utomated message] The Eosinophils) system which ge nerated this result tra nsmitted reference range : <=4.0. The reference r kat was not used to int erpret this result as normal/abnormal . [facility] CenterXgmkydxQMGXYKRKZK3749-23-66 15:29:00 Test Item Value Reference Range Interpretation Comments Lymphocytes (test code = Lymphocytes) 37.4 20.0-40.0 [facility]IbfozqxINBVQAMANE5698-33-05 15:29:00 Test Item Value Reference Range Interpretation Comments Monocytes (test code = Monocytes) 8.9 2.0-12.0 [facility] HospitalPbntchkBADIUYNXDR1784-60-94 15:29:00 Test Item Value Reference Range Interpretation Comments Segs (test code = Segs) 51.8 45.0-75.0 [facility]EokmiglKFONJPJTNI4023-44-28 15:29:00 Test Item Value Reference Range Interpretation Comments Microcyte (test code = 1+ *ABN*(08/12/15 Microcyte) 9:29 AM) [facility] SystemCixlhofWAGILSUAFR9129-67-11 15:29:00 Test Item Value Reference Range Interpretation Comments Basophils # (test code 0.1 See_Comment [Aut omated message] The = Basophils #) system which generated this result tra nsmitted reference range : <=0.2. The reference r kat was not used to int erpret this result as normal/abnormal . [facility] CPXG9509-62-90 15:29:00 Test Item Value Reference Range Interpretation Comments U Preg (test code = U Negative (08/12/15 9:29 Preg) AM) [facility] [id number] 15:29:00 Test Item Value Reference Range Interpretation Comments eGFR (test code = eGFR) [address] [facility] TPWLY0610-69-11 15:29:00 Test Item Value Reference Range Interpretation Comments Creatinine Lvl (test code = Creatinine 0.81 0.50-1.40 Lvl) [facility]annCHE[facility] YLNZV5344-19-44 15:29:00 Test Item Value Reference Range Interpretation Comments CO2 (test code = CO2) 27 24-32 [facility]annCHE[facility] UVYXL0410-18-10 15:29:00 Test Item Value Reference Range Interpretation Comments Calcium Lvl (test code = Calcium Lvl) 9.7 8.5-10.5 [facility]2015-12-14 15:29:00 Test Item Value Reference Range Interpretation Comments Chloride Lvl (test code = Chloride Lvl) 100 95-109 [facility]2015-12-14 15:29:00 Test Item Value Reference Range Interpretation Comments BUN (test code = BUN) 13 7-22 [facility]2015-12-14 15:29:00 Test Item Value Reference Range Interpretation Comments Glucose Lvl (test code = Glucose Lvl) 89 70-99 [facility]2015-12-14 15:29:00 Test Item Value Reference Range Interpretation Comments Potassium Lvl (test code = Potassium 4.2 3.5-5.1 Lvl) [facility]2015-12-14 15:29:00 Test Item Value Reference Range Interpretation Comments Sodium Lvl (test code = Sodium Lvl) 134 135-145 [facility]2015-12-14 15:29:00 Test Item Value Reference Range Interpretation Comments AGAP (test code = AGAP) 11.2 10.0-20.0 [facility] HospitalDwdpccsELLNQUSSWV7804-32-77 15:29:00 Test Item Value Reference Range Interpretation Comments MPV (test code = MPV) 9.2 7.4-10.4 [facility] HospitalKtmjxaoXEFKULIEBF9757-69-08 15:29:00 Test Item Value Reference Range Interpretation Comments Platelet (test code = Platelet) 307 133-450 [facility] HospitalGgyaibrTYNZRCUXRD6873-30-10 15:29:00 Test Item Value Reference Range Interpretation Comments MCH (test code = MCH) 24.3 pg 27.0-31.0 [facility] HospitalQveyswkXIVBVZSDBV4141-76-75 15:29:00 Test Item Value Reference Range Interpretation Comments RDW (test code = RDW) 15.7 11.5-14.5 [facility] HospitalBdsjevjMVMZOQNJSV0839-11-81 15:29:00 Test Item Value Reference Range Interpretation Comments MCHC (test code = MCHC) 31.2 32.0-36.0 [facility] HospitalTlweamnWVFEIKIJNV7881-23-03 15:29:00 Test Item Value Reference Range Interpretation Comments MCV (test code = MCV) 78.0 80.0-98.0 [facility] [facility]MukfhivBECWAIOJLN4751-63-25 15:29:00 Test Item Value Reference Range Interpretation Comments WBC (test code = WBC) 8.6 3.7-10.4 [facility]PdfmyhfKFWPTUEOUI6717-75-03 15:29:00 Test Item Value Reference Range Interpretation Comments Hgb (test code = Hgb) 13.2 12.0-16.0 [facility] HospitalXjllwrmWSBYFYMLBL5909-66-77 15:29:00 Test Item Value Reference Range Interpretation Comments RBC (test code = RBC) 5.41 4.20-5.40 [facility] HospitalDkqxegyPGRKPAFBEP6152-81-57 15:29:00 Test Item Value Reference Range Interpretation Comments Hct (test code = Hct) 42.1 36.0-48.0 [facility] HospitalEvcundtAYKYYADRIA4972-61-06 15:29:00 Test Item Value Reference Range Interpretation Comments Lymphocytes # (test code = Lymphocytes 3.2 1.0-5.5 #) [facility] HospitalHnfknlbOLTEIOCUVG8920-83-96 15:29:00 Test Item Value Reference Range Interpretation Comments Eosinophils # (test code 0.1 See_Comment [A utomated message] The = Eosinophils #) system wh h generated this result tra nsmitted reference range : <=0.5. The reference r kat was not used to int erpret this result as normal/abnormal . [facility] HospitalKitwbizIXFOODIIUS9140-00-32 15:29:00 Test Item Value Reference Range Interpretation Comments Monocytes # (test code 0.8 See_Comment [Aut omated message] The = Monocytes #) system which generated this result tra nsmitted reference range : <=0.8. The reference r kat was not used to int erpret this result as normal/abnormal . [facility] HospitalMlwlpsjXYAPVNRLFY8821-59-26 15:29:00 Test Item Value Reference Range Interpretation Comments Basophils (test code = 0.7 See_Comment [Aut omated message] The Basophils) system which ge nerated this result tra nsmitted reference range : <=1.0. The reference r kat was not used to int erpret this result as normal/abnormal . [facility] HospitalKuhczflHCITLNPNHE1348-45-61 15:29:00 Test Item Value Reference Range Interpretation Comments Segs-Bands # (test code = Segs-Bands #) 4.4 1.5-8.1 [facility] HospitalUghltpoWKFAXYJWSY0200-96-20 15:29:00 Test Item Value Reference Range Interpretation Comments Eosinophils (test code = 1.2 See_Comment [A utomated message] The Eosinophils) system which ge nerated this result tra nsmitted reference range : <=4.0. The reference r kat was not used to int erpret this result as normal/abnormal . [facility]ZrtozcpWSVQWNQMOF6819-85-54 15:29:00 Test Item Value Reference Range Interpretation Comments Lymphocytes (test code = Lymphocytes) 37.4 20.0-40.0 [facility]ZnhlacjWKUOSBKLDY3219-53-67 15:29:00 Test Item Value Reference Range Interpretation Comments Monocytes (test code = Monocytes) 8.9 2.0-12.0 [facility]KtoxpjiFFNHSVQNTL3973-40-91 15:29:00 Test Item Value Reference Range Interpretation Comments Segs (test code = Segs) 51.8 45.0-75.0 [facility]bl[facility]gaYEMZUXTHNR5063-[facility] 15:29:00 Test Item Value Reference Range Interpretation Comments Microcyte (test code = 1+ *ABN*(08/12/15 Microcyte) 9:29 AM) [facility] SystemIktjsplLFXFLTUZFZ2271-19-24 15:29:00 Test Item Value Reference Range Interpretation Comments Basophils # (test code 0.1 See_Comment [Aut omated message] The = Basophils #) system which generated this result tra nsmitted reference range : <=0.2. The reference r kat was not used to int erpret this result as normal/abnormal . [facility] VGSL4889-63-07 15:29:00 Test Item Value Reference Range Interpretation Comments U Preg (test code = U Negative (08/12/15 9:29 Preg) AM) [facility]CHE[facility] [id number] 15:29:00 Test Item Value Reference Range Interpretation Comments eGFR (test code = eGFR) 101 [facility]CHE[facility] MWKUI2163-77-20 15:29:00 Test Item Value Reference Range Interpretation Comments Creatinine Lvl (test code = Creatinine 0.81 0.50-1.40 Lvl) [facility]annCHEM WKWPJ5815-41-29 15:29:00 Test Item Value Reference Range Interpretation Comments CO2 (test code = CO2) 27 24-32 [facility]annCHEM CEWSQ7735-15-06 15:29:00 Test Item Value Reference Range Interpretation Comments Calcium Lvl (test code = Calcium Lvl) 9.7 8.5-10.5 [facility]2015-12-14 15:29:00 Test Item Value Reference Range Interpretation Comments Chloride Lvl (test code = Chloride Lvl) 100 95-109 [facility]2015-12-14 15:29:00 Test Item Value Reference Range Interpretation Comments BUN (test code = BUN) 13 7-22 [facility]2015-12-14 15:29:00 Test Item Value Reference Range Interpretation Comments Glucose Lvl (test code = Glucose Lvl) 89 70-99 [facility]2015-12-14 15:29:00 Test Item Value Reference Range Interpretation Comments Potassium Lvl (test code = Potassium 4.2 3.5-5.1 Lvl) [facility]2015-12-14 15:29:00 Test Item Value Reference Range Interpretation Comments Sodium Lvl (test code = Sodium Lvl) 134 135-145 [facility]2015-12-14 15:29:00 Test Item Value Reference Range Interpretation Comments AGAP (test code = AGAP) 11.2 10.0-20.0 [facility]OhxunrwGIQJCVNTCB3436-03-62 15:29:00 Test Item Value Reference Range Interpretation Comments MPV (test code = MPV) 9.2 7.4-10.4 [facility] HospitalTmqypezVWBCMXSWSN9285-01-04 15:29:00 Test Item Value Reference Range Interpretation Comments Platelet (test code = Platelet) 307 133-450 [facility] HospitalPtninzyDKJRFAWMAT9274-30-17 15:29:00 Test Item Value Reference Range Interpretation Comments MCH (test code = MCH) 24.3 pg 27.0-31.0 [facility] HospitalCqyjnagMHJFAFMEFC3019-49-33 15:29:00 Test Item Value Reference Range Interpretation Comments RDW (test code = RDW) 15.7 11.5-14.5 [facility] HospitalEvmibuvLBWNMZISQC1833-18-74 15:29:00 Test Item Value Reference Range Interpretation Comments MCHC (test code = MCHC) 31.2 32.0-36.0 [facility] HospitalMhsypheXEMDBWPMZB6739-54-53 15:29:00 Test Item Value Reference Range Interpretation Comments MCV (test code = MCV) 78.0 80.0-98.0 [facility] HospitalYcmymcrOEQLADAGXQ1595-36-21 15:29:00 Test Item Value Reference Range Interpretation Comments WBC (test code = WBC) 8.6 3.7-10.4 [facility] HospitalPukjfmcJGAHOZADAS5169-71-12 15:29:00 Test Item Value Reference Range Interpretation Comments Hgb (test code = Hgb) 13.2 12.0-16.0 [facility] HospitalPbrgwaeISQTKHOKFG3234-67-13 15:29:00 Test Item Value Reference Range Interpretation Comments RBC (test code = RBC) 5.41 4.20-5.40 [facility] HospitalUgexslcVCWOWEFXLK3860-29-15 15:29:00 Test Item Value Reference Range Interpretation Comments Hct (test code = Hct) 42.1 36.0-48.0 [facility] HospitalKtqxislUCPTDGVKHU1370-85-80 15:29:00 Test Item Value Reference Range Interpretation Comments Lymphocytes # (test code = Lymphocytes 3.2 1.0-5.5 #) [facility] HospitalAzmcphuHGBBOTEQIT4644-45-04 15:29:00 Test Item Value Reference Range Interpretation Comments Eosinophils # (test code 0.1 See_Comment [A utomated message] The = Eosinophils #) system whic h generated this result tra nsmitted reference range : <=0.5. The reference r kat was not used to int erpret this result as normal/abnormal . [facility] HospitalTmoexedQLJJXGHQSV2996-59-34 15:29:00 Test Item Value Reference Range Interpretation Comments Monocytes # (test code 0.8 See_Comment [Aut omated message] The = Monocytes #) system which generated this result tra nsmitted reference range : <=0.8. The reference r kat was not used to int erpret this result as normal/abnormal . [facility] HospitalYizjvkzRPWNDINXFA6242-71-40 15:29:00 Test Item Value Reference Range Interpretation Comments Basophils (test code = 0.7 See_Comment [Aut omated message] The Basophils) system which ge nerated this result tra nsmitted reference range : <=1.0. The reference r kat was not used to int erpret this result as normal/abnormal . [facility] HospitalItcidtjGGGKPPUDLY0713-41-09 15:29:00 Test Item Value Reference Range Interpretation Comments Segs-Bands # (test code = Segs-Bands #) 4.4 1.5-8.1 [facility] HospitalRouywkcLPDGMQBEZS1856-45-36 15:29:00 Test Item Value Reference Range Interpretation Comments Eosinophils (test code = 1.2 See_Comment [A utomated message] The Eosinophils) system which ge nerated this result tra nsmitted reference range : <=4.0. The reference r kat was not used to int erpret this result as normal/abnormal . [facility] CenterRlaiedtFORRRQJWHA4254-21-47 15:29:00 Test Item Value Reference Range Interpretation Comments Lymphocytes (test code = Lymphocytes) 37.4 20.0-40.0 [facility] CenterBfkcoefUWGQLOPHXV3843-84-63 15:29:00 Test Item Value Reference Range Interpretation Comments Monocytes (test code = Monocytes) 8.9 2.0-12.0 [facility]IiuiijgBLXVPKGLGB2840-74-60 15:29:00 Test Item Value Reference Range Interpretation Comments Segs (test code = Segs) 51.8 45.0-75.0 [facility] SystemWbzunlyCUVUNXPAUL2353-01-07 15:29:00 Test Item Value Reference Range Interpretation Comments Microcyte (test code = 1+ *ABN*(08/12/15 Microcyte) 9:29 AM) [facility] SystemHqtopftASXSCKRPBR8901-80-91 15:29:00 Test Item Value Reference Range Interpretation Comments Basophils # (test code 0.1 See_Comment [Aut omated message] The = Basophils #) system which generated this result tra nsmitted reference range : <=0.2. The reference r kat was not used to int erpret this result as normal/abnormal . [facility] [id number] 15:29:00 Test Item Value Reference Range Interpretation Comments U Preg (test code = U Negative (08/12/15 9:29 Preg) AM) [facility]CHE[facility] PVADG0510-17-03 15:29:00 Test Item Value Reference Range Interpretation Comments eGFR (test code = eGFR) [address] [facility] ZCRHZ8058-99-23 15:29:00 Test Item Value Reference Range Interpretation Comments Creatinine Lvl (test code = Creatinine 0.81 0.50-1.40 Lvl) [facility]CHE[facility] [id number] 15:29:00 Test Item Value Reference Range Interpretation Comments CO2 (test code = CO2) 27 24-32 [facility]CHE[facility] NQXLK0051-33-17 15:29:00 Test Item Value Reference Range Interpretation Comments Calcium Lvl (test code = Calcium Lvl) 9.7 8.5-10.5 [facility]2015-12-14 15:29:00 Test Item Value Reference Range Interpretation Comments Chloride Lvl (test code = Chloride Lvl) 100 95-109 [facility]2015-12-14 15:29:00 Test Item Value Reference Range Interpretation Comments BUN (test code = BUN) 13 7-22 [facility]2015-12-14 15:29:00 Test Item Value Reference Range Interpretation Comments Glucose Lvl (test code = Glucose Lvl) 89 70-99 [facility]2015-12-14 15:29:00 Test Item Value Reference Range Interpretation Comments Potassium Lvl (test code = Potassium 4.2 3.5-5.1 Lvl) [facility]2015-12-14 15:29:00 Test Item Value Reference Range Interpretation Comments Sodium Lvl (test code = Sodium Lvl) 134 135-145 [facility]2015-12-14 15:29:00 Test Item Value Reference Range Interpretation Comments AGAP (test code = AGAP) 11.2 10.0-20.0 [facility] HospitalVsnhcntRXWAJQMJEX1914-42-15 15:29:00 Test Item Value Reference Range Interpretation Comments MPV (test code = MPV) 9.2 7.4-10.4 [facility] HospitalGsgatqoLXURTBPYNL2665-67-65 15:29:00 Test Item Value Reference Range Interpretation Comments Platelet (test code = Platelet) 307 133-450 [facility] HospitalRazpugfFCNOBBWLJY5101-51-55 15:29:00 Test Item Value Reference Range Interpretation Comments MCH (test code = MCH) 24.3 pg 27.0-31.0 [facility] HospitalDkvrenfUJGSUGLUNS7761-17-23 15:29:00 Test Item Value Reference Range Interpretation Comments RDW (test code = RDW) 15.7 11.5-14.5 [facility] HospitalHdmgtktYOKROXDCJZ8860-20-50 15:29:00 Test Item Value Reference Range Interpretation Comments MCHC (test code = MCHC) 31.2 32.0-36.0 [facility] HospitalLwtlhulOUBFDOBQJD5449-36-53 15:29:00 Test Item Value Reference Range Interpretation Comments MCV (test code = MCV) 78.0 80.0-98.0 [facility] HospitalVxqiufuOHVRFTRSWM2389-66-42 15:29:00 Test Item Value Reference Range Interpretation Comments WBC (test code = WBC) 8.6 3.7-10.4 [facility] HospitalTfzijagNJCDEVUGTV8292-26-21 15:29:00 Test Item Value Reference Range Interpretation Comments Hgb (test code = Hgb) 13.2 12.0-16.0 [facility] HospitalDzsdmhgJNJGHQPPER3046-30-42 15:29:00 Test Item Value Reference Range Interpretation Comments RBC (test code = RBC) 5.41 4.20-5.40 [facility] HospitalBldftegZEVEVQXSPZ2772-67-44 15:29:00 Test Item Value Reference Range Interpretation Comments Hct (test code = Hct) 42.1 36.0-48.0 [facility] HospitalAnxzmokDWGNBXFSFK7058-12-47 15:29:00 Test Item Value Reference Range Interpretation Comments Lymphocytes # (test code = Lymphocytes 3.2 1.0-5.5 #) [facility] HospitalBaohnmeNACRAWFUDV8521-64-76 15:29:00 Test Item Value Reference Range Interpretation Comments Eosinophils # (test code 0.1 See_Comment [A utomated message] The = Eosinophils #) system whic h generated this result tra nsmitted reference range : <=0.5. The reference r kat was not used to int erpret this result as normal/abnormal . [facility] HospitalPerxiorEFEJKCAJNY1375-49-97 15:29:00 Test Item Value Reference Range Interpretation Comments Monocytes # (test code 0.8 See_Comment [Aut omated message] The = Monocytes #) system which generated this result tra nsmitted reference range : <=0.8. The reference r kat was not used to int erpret this result as normal/abnormal . [facility] HospitalCbxupjtQCOKWUCWHO5053-43-60 15:29:00 Test Item Value Reference Range Interpretation Comments Basophils (test code = 0.7 See_Comment [Aut omated message] The Basophils) system which ge nerated this result tra nsmitted reference range : <=1.0. The reference r kat was not used to int erpret this result as normal/abnormal . [facility] HospitalAmmajrqVJHEVOHNJQ4075-43-86 15:29:00 Test Item Value Reference Range Interpretation Comments Segs-Bands # (test code = Segs-Bands #) 4.4 1.5-8.1 [facility] HospitalQnvukogGYEELTWZUI1273-15-95 15:29:00 Test Item Value Reference Range Interpretation Comments Eosinophils (test code = 1.2 See_Comment [A utomated message] The Eosinophils) system which ge nerated this result tra nsmitted reference range : <=4.0. The reference r kat was not used to int erpret this result as normal/abnormal . [facility] CenterJwvuapeHWVDHVYDQU2080-44-83 15:29:00 Test Item Value Reference Range Interpretation Comments Lymphocytes (test code = Lymphocytes) 37.4 20.0-40.0 [facility]IfyayaeCJUCTLXJGG7261-07-07 15:29:00 Test Item Value Reference Range Interpretation Comments Monocytes (test code = Monocytes) 8.9 2.0-12.0 [facility]HypqbdfWRVGSKAXCS8421-78-00 15:29:00 Test Item Value Reference Range Interpretation Comments Segs (test code = Segs) 51.8 45.0-75.0 [facility] SystemQjgfedoWNWGJGGWTV9342-45-14 15:29:00 Test Item Value Reference Range Interpretation Comments Microcyte (test code = 1+ *ABN*(08/12/15 Microcyte) 9:29 AM) [facility] CenterXedddvgZBWIKHXRBQ5274-25-02 15:29:00 Test Item Value Reference Range Interpretation Comments Basophils # (test code 0.1 See_Comment [Aut omated message] The = Basophils #) system which generated this result tra nsmitted reference range : <=0.2. The reference r kat was not used to int erpret this result as normal/abnormal . [facility] CenterURINE [id number] 15:29:00 Test Item Value Reference Range Interpretation Comments U Preg (test code = U Negative (08/12/15 9:29 Preg) AM) [facility]CHE[facility] [id number] 15:29:00 Test Item Value Reference Range Interpretation Comments eGFR (test code = eGFR) 101 [facility]CHE[facility] SUYXC6650-46-26 15:29:00 Test Item Value Reference Range Interpretation Comments Creatinine Lvl (test code = Creatinine 0.81 0.50-1.40 Lvl) [facility]annCHE[facility] ZHPTV5901-71-86 15:29:00 Test Item Value Reference Range Interpretation Comments CO2 (test code = CO2) 27 24-32 [facility]annCHE[facility] JITCQ1186-03-31 15:29:00 Test Item Value Reference Range Interpretation Comments Calcium Lvl (test code = Calcium Lvl) 9.7 8.5-10.5 [facility]2015-12-14 15:29:00 Test Item Value Reference Range Interpretation Comments Chloride Lvl (test code = Chloride Lvl) 100 95-109 [facility]2015-12-14 15:29:00 Test Item Value Reference Range Interpretation Comments BUN (test code = BUN) 13 7-22 [facility]2015-12-14 15:29:00 Test Item Value Reference Range Interpretation Comments Glucose Lvl (test code = Glucose Lvl) 89 70-99 [facility]2015-12-14 15:29:00 Test Item Value Reference Range Interpretation Comments Potassium Lvl (test code = Potassium 4.2 3.5-5.1 Lvl) [facility]2015-12-14 15:29:00 Test Item Value Reference Range Interpretation Comments Sodium Lvl (test code = Sodium Lvl) 134 135-145 [facility]2015-12-14 15:29:00 Test Item Value Reference Range Interpretation Comments AGAP (test code = AGAP) 11.2 10.0-20.0 [facility] HospitalDbbckomIHVNUARHBX5521-21-16 15:29:00 Test Item Value Reference Range Interpretation Comments MPV (test code = MPV) 9.2 7.4-10.4 [facility] HospitalDcbddjkDJTMLSLKYP9600-09-56 15:29:00 Test Item Value Reference Range Interpretation Comments Platelet (test code = Platelet) 307 133-450 [facility] HospitalMdlvbzvZDRODZLAZZ3855-85-77 15:29:00 Test Item Value Reference Range Interpretation Comments MCH (test code = MCH) 24.3 pg 27.0-31.0 [facility] HospitalSfykswfABZFDKJGRC8119-37-27 15:29:00 Test Item Value Reference Range Interpretation Comments RDW (test code = RDW) 15.7 11.5-14.5 [facility] HospitalLtqpuqiFRHORZPCYA0866-59-55 15:29:00 Test Item Value Reference Range Interpretation Comments MCHC (test code = MCHC) 31.2 32.0-36.0 [facility] HospitalKzpaupaSLNTPAUKHN0908-72-74 15:29:00 Test Item Value Reference Range Interpretation Comments MCV (test code = MCV) 78.0 80.0-98.0 [facility] HospitalOefyntxUQNFBBOENB6523-52-41 15:29:00 Test Item Value Reference Range Interpretation Comments WBC (test code = WBC) 8.6 3.7-10.4 [facility] HospitalYbflofnVLAHRFKOXE1855-35-25 15:29:00 Test Item Value Reference Range Interpretation Comments Hgb (test code = Hgb) 13.2 12.0-16.0 [facility] HospitalVdidvtdPTJLVEFEJG5316-99-95 15:29:00 Test Item Value Reference Range Interpretation Comments RBC (test code = RBC) 5.41 4.20-5.40 [facility] HospitalOgbhgewSUPJECXFLK6467-27-94 15:29:00 Test Item Value Reference Range Interpretation Comments Hct (test code = Hct) 42.1 36.0-48.0 [facility] HospitalIguunqvZBBTNRLPGQ2508-21-64 15:29:00 Test Item Value Reference Range Interpretation Comments Lymphocytes # (test code = Lymphocytes 3.2 1.0-5.5 #) [facility] HospitalMfbzkqkBWTOGBSJDJ3018-69-11 15:29:00 Test Item Value Reference Range Interpretation Comments Eosinophils # (test code 0.1 See_Comment [A utomated message] The = Eosinophils #) system whic h generated this result tra nsmitted reference range : <=0.5. The reference r kat was not used to int erpret this result as normal/abnormal . [facility] HospitalFoppqkeZAHMDSSZZA0665-29-47 15:29:00 Test Item Value Reference Range Interpretation Comments Monocytes # (test code 0.8 See_Comment [Aut omated message] The = Monocytes #) system which generated this result tra nsmitted reference range : <=0.8. The reference r kat was not used to int erpret this result as normal/abnormal . [facility] HospitalBpzlojrQSHWLQTRUZ7014-53-96 15:29:00 Test Item Value Reference Range Interpretation Comments Basophils (test code = 0.7 See_Comment [Aut omated message] The Basophils) system which ge nerated this result tra nsmitted reference range : <=1.0. The reference r kat was not used to int erpret this result as normal/abnormal . [facility] HospitalHmvluevCWOGLZXHJV1446-20-12 15:29:00 Test Item Value Reference Range Interpretation Comments Segs-Bands # (test code = Segs-Bands #) 4.4 1.5-8.1 [facility] HospitalEebcapiLXUXQRZRZX5845-93-69 15:29:00 Test Item Value Reference Range Interpretation Comments Eosinophils (test code = 1.2 See_Comment [A utomated message] The Eosinophils) system which ge nerated this result tra nsmitted reference range : <=4.0. The reference r kat was not used to int erpret this result as normal/abnormal . [facility] HospitalRoyefafCIKNEESZAH0906-09-26 15:29:00 Test Item Value Reference Range Interpretation Comments Lymphocytes (test code = Lymphocytes) 37.4 20.0-40.0 [facility] HospitalXmggsdeGTGFFSVVBT9403-47-20 15:29:00 Test Item Value Reference Range Interpretation Comments Monocytes (test code = Monocytes) 8.9 2.0-12.0 [facility] HospitalMdrjfamXOJXHIKQNN0853-07-92 15:29:00 Test Item Value Reference Range Interpretation Comments Segs (test code = Segs) 51.8 45.0-75.0 [facility] HospitalKoylkjmDWAEZKHZWW0475-34-56 15:29:00 Test Item Value Reference Range Interpretation Comments Microcyte (test code = 1+ *ABN*(08/12/15 Microcyte) 9:29 AM) [facility] HospitalOvbzoraIBZRWRHBZD2424-71-18 15:29:00 Test Item Value Reference Range Interpretation Comments Basophils # (test code 0.1 See_Comment [Aut omated message] The = Basophils #) system which generated this result tra nsmitted reference range : <=0.2. The reference r kat was not used to int erpret this result as normal/abnormal . [facility]2015-12-14 15:29:00 Test Item Value Reference Range Interpretation Comments U Preg (test code = U Negative (08/12/15 9:29 Preg) AM) [facility]2015-10-26 15:15:00 Test Item Value Reference Range Interpretation Comments U Preg (test code = U Negative (06/24/15 10:15 Preg) AM) [facility]2015-10-26 15:15:00 Test Item Value Reference Range Interpretation Comments U Preg (test code = U Negative (06/24/15 10:15 Preg) AM) [facility]2015-10-26 15:15:00 Test Item Value Reference Range Interpretation Comments U Preg (test code = U Negative (06/24/15 10:15 Preg) AM) [facility]2015-10-26 15:15:00 Test Item Value Reference Range Interpretation Comments U Preg (test code = U Negative (06/24/15 10:15 Preg) AM) [facility]2015-10-26 15:15:00 Test Item Value Reference Range Interpretation Comments U Preg (test code = U Negative (06/24/15 10:15 Preg) AM) [facility]2015-10-26 15:15:00 Test Item Value Reference Range Interpretation Comments U Preg (test code = U Negative (06/24/15 10:15 Preg) AM) [facility]2015-10-26 15:15:00 Test Item Value Reference Range Interpretation Comments U Preg (test code = U Negative (06/24/15 10:15 Preg) AM) [facility]2015-10-26 15:15:00 Test Item Value Reference Range Interpretation Comments U Preg (test code = U Negative (06/24/15 10:15 Preg) AM) [facility]2015-10-26 15:15:00 Test Item Value Reference Range Interpretation Comments U Preg (test code = U Negative (06/24/15 10:15 Preg) AM) [facility]2015-10-09 22:58:56 Test Item Value Reference Range Interpretation Comments U Cotinine Lvl (test Negative *NA*(06/07/15 code = U Cotinine Lvl) 5:58 PM) [facility]2015-10-09 22:58:56 Test Item Value Reference Range Interpretation Comments U Preg (test code = U Negative (06/07/15 5:58 Preg) PM) [facility]2015-10-09 22:58:56 Test Item Value Reference Range Interpretation Comments U Cotinine Lvl (test Negative *NA*(06/07/15 code = U Cotinine Lvl) 5:58 PM) [facility]2015-10-09 22:58:56 Test Item Value Reference Range Interpretation Comments U Preg (test code = U Negative (06/07/15 5:58 Preg) PM) [facility]2015-10-09 22:58:56 Test Item Value Reference Range Interpretation Comments U Cotinine Lvl (test Negative *NA*(06/07/15 code = U Cotinine Lvl) 5:58 PM) [facility]2015-10-09 22:58:56 Test Item Value Reference Range Interpretation Comments U Preg (test code = U Negative (06/07/15 5:58 Preg) PM) [facility]2015-10-09 22:58:56 Test Item Value Reference Range Interpretation Comments U Cotinine Lvl (test Negative *NA*(06/07/15 code = U Cotinine Lvl) 5:58 PM) [facility]2015-10-09 22:58:56 Test Item Value Reference Range Interpretation Comments U Preg (test code = U Negative (06/07/15 5:58 Preg) PM) [facility]2015-10-09 22:58:56 Test Item Value Reference Range Interpretation Comments U Cotinine Lvl (test Negative *NA*(06/07/15 code = U Cotinine Lvl) 5:58 PM) [facility]2015-10-09 22:58:56 Test Item Value Reference Range Interpretation Comments U Preg (test code = U Negative (06/07/15 5:58 Preg) PM) [facility]2015-10-09 22:58:56 Test Item Value Reference Range Interpretation Comments U Cotinine Lvl (test Negative *NA*(06/07/15 code = U Cotinine Lvl) 5:58 PM) [facility]2015-10-09 22:58:56 Test Item Value Reference Range Interpretation Comments U Preg (test code = U Negative (06/07/15 5:58 Preg) PM) [facility]2015-10-09 22:58:56 Test Item Value Reference Range Interpretation Comments U Cotinine Lvl (test Negative *NA*(06/07/15 code = U Cotinine Lvl) 5:58 PM) [facility]2015-10-09 22:58:56 Test Item Value Reference Range Interpretation Comments U Preg (test code = U Negative (06/07/15 5:58 Preg) PM) [facility]2015-10-09 22:58:56 Test Item Value Reference Range Interpretation Comments U Cotinine Lvl (test Negative *NA*(06/07/15 code = U Cotinine Lvl) 5:58 PM) [facility]2015-10-09 22:58:56 Test Item Value Reference Range Interpretation Comments U Preg (test code = U Negative (06/07/15 5:58 Preg) PM) [facility]2015-10-09 22:58:56 Test Item Value Reference Range Interpretation Comments U Cotinine Lvl (test Negative *NA*(06/07/15 code = U Cotinine Lvl) 5:58 PM) [facility]2015-10-09 22:58:56 Test Item Value Reference Range Interpretation Comments U Preg (test code = U Negative (06/07/15 5:58 Preg) PM) [facility]2015-10-09 22:53:19 Test Item Value Reference Range Interpretation Comments B/C Ratio (test code = B/C Ratio) 13 6-25 [facility]2015-10-09 22:53:19 Test Item Value Reference Range Interpretation Comments Globulin (test code = Globulin) 3.6 2.0-4.0 [facility]2015-10-09 22:53:19 Test Item Value Reference Range Interpretation Comments Magnesium Lvl (test code = Magnesium 1.8 1.8-2.4 Lvl) [facility] 22:53:19 Test Item Value Reference Range Interpretation Comments Segs (test code = Segs) 57.5 45.0-75.0 [facility]CfcdsgjIHNWUKZDZW2912-81-61 22:53:19 Test Item Value Reference Range Interpretation Comments Monocytes (test code = Monocytes) 7.6 2.0-12.0 [facility] HospitalUwmxrdoJUTLNOFXWG6523-19-14 22:53:19 Test Item Value Reference Range Interpretation Comments Basophils (test code = 1.0 See_Comment [Aut omated message] The Basophils) system which ge nerated this result tra nsmitted reference range : <=1.0. The reference r kat was not used to int erpret this result as normal/abnormal . [facility] HospitalIbcezdyLOSXUZYKSL8170-26-03 22:53:19 Test Item Value Reference Range Interpretation Comments Lymphocytes (test code = Lymphocytes) 32.9 20.0-40.0 [facility] HospitalSmmnbmfQBWUSLOYIB9185-54-49 22:53:19 Test Item Value Reference Range Interpretation Comments Eosinophils (test code = 1.0 See_Comment [A utomated message] The Eosinophils) system which ge nerated this result tra nsmitted reference range : <=4.0. The reference r kat was not used to int erpret this result as normal/abnormal . [facility] HospitalHlrgvbgQBJXPKWNHR2790-16-12 22:53:19 Test Item Value Reference Range Interpretation Comments Lymphocytes # (test code = Lymphocytes 3.8 1.0-5.5 #) [facility] HospitalFdkhwdfBZRHRHLVMY0946-25-07 22:53:19 Test Item Value Reference Range Interpretation Comments Segs-Bands # (test code = Segs-Bands #) 6.6 1.5-8.1 [facility] HospitalPkhromiZGIEDNDKFE5835-79-76 22:53:19 Test Item Value Reference Range Interpretation Comments Eosinophils # (test code 0.1 See_Comment [A utomated message] The = Eosinophils #) system whic h generated this result tra nsmitted reference range : <=0.5. The reference r kat was not used to int erpret this result as normal/abnormal . [facility] HospitalKhovjkeDMFXLAHBCZ5278-84-87 22:53:19 Test Item Value Reference Range Interpretation Comments Monocytes # (test code 0.9 See_Comment [Aut omated message] The = Monocytes #) system which generated this result tra nsmitted reference range : <=0.8. The reference r kat was not used to int erpret this result as normal/abnormal . [facility] HospitalPdhcnioUOUUQAPFJH2669-98-58 22:53:19 Test Item Value Reference Range Interpretation Comments Microcyte (test code = 1+ *ABN*(06/07/15 Microcyte) 5:53 PM) [facility] HospitalQqhtccvXJFZLEOVEA7846-97-31 22:53:19 Test Item Value Reference Range Interpretation Comments Basophils # (test code 0.1 See_Comment [Aut omated message] The = Basophils #) system which generated this result tra nsmitted reference range : <=0.2. The reference r kat was not used to int erpret this result as normal/abnormal . [facility] HospitalTzhgluuWNOSAGYDEX2327-72-83 22:53:19 Test Item Value Reference Range Interpretation Comments RBC (test code = RBC) 5.23 4.20-5.40 [facility] HospitalHddmcbtWUMFJTCKYV1696-30-91 22:53:19 Test Item Value Reference Range Interpretation Comments Platelet (test code = Platelet) 241 133-450 [facility] HospitalNulsbspBUCWNHCWEI1701-75-22 22:53:19 Test Item Value Reference Range Interpretation Comments MPV (test code = MPV) 9.3 7.4-10.4 [facility] HospitalUhlfoucXNYNMMQVQE7157-65-92 22:53:19 Test Item Value Reference Range Interpretation Comments RDW (test code = RDW) 16.5 11.5-14.5 [facility] HospitalZojjdnvKOQYGCXGYC5455-77-82 22:53:19 Test Item Value Reference Range Interpretation Comments Hct (test code = Hct) 41.0 36.0-48.0 [facility] HospitalPmttfyrEITZUKTBWY5539-81-14 22:53:19 Test Item Value Reference Range Interpretation Comments Hgb (test code = Hgb) 12.7 12.0-16.0 [facility] HospitalQtejxvmISEIFBMQRH2057-32-18 22:53:19 Test Item Value Reference Range Interpretation Comments WBC (test code = WBC) 11.5 3.7-10.4 [facility] HospitalByflvczVBBDDMCWCE0482-31-60 22:53:19 Test Item Value Reference Range Interpretation Comments MCH (test code = MCH) 24.3 pg 27.0-31.0 [facility] HospitalCybhqzrTZKUPHMLXL1631-81-14 22:53:19 Test Item Value Reference Range Interpretation Comments MCHC (test code = MCHC) 31.0 32.0-36.0 [facility] HospitalRkransnCVPLGRCFFN3878-18-56 22:53:19 Test Item Value Reference Range Interpretation Comments MCV (test code = MCV) 78.4 80.0-98.0 [facility]2015-10-09 22:53:19 Test Item Value Reference Range Interpretation Comments FTI (test code = FTI) 2.5 [facility]2015-10-09 22:53:19 Test Item Value Reference Range Interpretation Comments TSH (test code = TSH) 1.540 0.360-3.740 [facility]2015-10-09 22:53:19 Test Item Value Reference Range Interpretation Comments T3 Uptake (test code = T3 Uptake) 31 31-39 [facility]2015-10-09 22:53:19 Test Item Value Reference Range Interpretation Comments T4 (test code = T4) 8.0 4.7-13.3 [facility]2015-10-09 22:53:19 Test Item Value Reference Range Interpretation Comments Transferrin (test code = Transferrin) 256 212-360 [facility]2015-10-09 22:53:19 Test Item Value Reference Range Interpretation Comments Vitamin B12 Lvl (test code = Vitamin [phone] B12 Lvl) [facility]2015-10-09 22:53:19 Test Item Value Reference Range Interpretation Comments eGFR (test code = eGFR) 70 [facility]2015-10-09 22:53:19 Test Item Value Reference Range Interpretation Comments Glucose Lvl (test code = Glucose Lvl) 103 70-99 [facility]2015-10-09 22:53:19 Test Item Value Reference Range Interpretation Comments Albumin Lvl (test code = Albumin Lvl) 3.6 3.5-5.0 [facility]2015-10-09 22:53:19 Test Item Value Reference Range Interpretation Comments CO2 (test code = CO2) 24 24-32 [facility]2015-10-09 22:53:19 Test Item Value Reference Range Interpretation Comments Total Protein (test code = Total 7.2 6.4-8.4 Protein) [facility]2015-10-09 22:53:19 Test Item Value Reference Range Interpretation Comments Creatinine Lvl (test code = Creatinine 1.1 0.5-1.4 Lvl) [facility]2015-10-09 22:53:19 Test Item Value Reference Range Interpretation Comments BUN (test code = BUN) 14 7-22 [facility]2015-10-09 22:53:19 Test Item Value Reference Range Interpretation Comments AST (test code = AST) 12 See_Comment [Auto mated message] The system which ge nerated this result transmit arvind reference range : <=37. The reference range was not used to interpr et this result as mario l/abnormal. [facility]2015-10-09 22:53:19 Test Item Value Reference Range Interpretation Comments ALT (test code = ALT) 41 See_Comment [Auto mated message] The system which ge nerated this result transmit arvind reference range : <=65. The reference range was not used to interpr et this result as mario l/abnormal. [facility]2015-10-09 22:53:19 Test Item Value Reference Range Interpretation Comments Alk Phos (test code = Alk Phos) 100 39-136 [facility]2015-10-09 22:53:19 Test Item Value Reference Range Interpretation Comments Bili Total (test code = Bili Total) 0.2 0.2-1.3 [facility]2015-10-09 22:53:19 Test Item Value Reference Range Interpretation Comments Potassium Lvl (test code = Potassium 3.9 3.5-5.1 Lvl) [facility]2015-10-09 22:53:19 Test Item Value Reference Range Interpretation Comments Sodium Lvl (test code = Sodium Lvl) 141 135-145 [facility]2015-10-09 22:53:19 Test Item Value Reference Range Interpretation Comments Calcium Lvl (test code = Calcium Lvl) 9.0 8.5-10.5 [facility]2015-10-09 22:53:19 Test Item Value Reference Range Interpretation Comments Chloride Lvl (test code = Chloride Lvl) 109 95-109 [facility]2015-10-09 22:53:19 Test Item Value Reference Range Interpretation Comments AGAP (test code = AGAP) 11.9 10.0-20.0 [facility]2015-10-09 22:53:19 Test Item Value Reference Range Interpretation Comments A/G Ratio (test code = A/G Ratio) 1.0 0.7-1.6 [facility]2015-10-09 22:53:19 Test Item Value Reference Range Interpretation Comments B/C Ratio (test code = B/C Ratio) 13 6-25 [facility]2015-10-09 22:53:19 Test Item Value Reference Range Interpretation Comments Globulin (test code = Globulin) 3.6 2.0-4.0 [facility]2015-10-09 22:53:19 Test Item Value Reference Range Interpretation Comments Magnesium Lvl (test code = Magnesium 1.8 1.8-2.4 Lvl) [facility]PjdstppNSKOIXXSAU3906-39-04 22:53:19 Test Item Value Reference Range Interpretation Comments Segs (test code = Segs) 57.5 45.0-75.0 [facility] HospitalDfypjgqQISGZXHYMY3794-51-60 22:53:19 Test Item Value Reference Range Interpretation Comments Monocytes (test code = Monocytes) 7.6 2.0-12.0 [facility] HospitalTwcawxxSMDANXHVAE4286-08-13 22:53:19 Test Item Value Reference Range Interpretation Comments Basophils (test code = 1.0 See_Comment [Aut omated message] The Basophils) system which ge nerated this result tra nsmitted reference range : <=1.0. The reference r kat was not used to int erpret this result as normal/abnormal . [facility] HospitalAtlzrsmBFDBHSTCWF4626-42-55 22:53:19 Test Item Value Reference Range Interpretation Comments Lymphocytes (test code = Lymphocytes) 32.9 20.0-40.0 [facility] HospitalRegnuamUXUVIQPDTB4807-61-66 22:53:19 Test Item Value Reference Range Interpretation Comments Eosinophils (test code = 1.0 See_Comment [A utomated message] The Eosinophils) system which ge nerated this result tra nsmitted reference range : <=4.0. The reference r kat was not used to int erpret this result as normal/abnormal . [facility] HospitalXtksjefKSOGMPHIOV9999-50-22 22:53:19 Test Item Value Reference Range Interpretation Comments Lymphocytes # (test code = Lymphocytes 3.8 1.0-5.5 #) [facility] HospitalDcwaqwuXZMRJLOEHK0632-45-29 22:53:19 Test Item Value Reference Range Interpretation Comments Segs-Bands # (test code = Segs-Bands #) 6.6 1.5-8.1 [facility] HospitalJcpbepmHHBCQSFFAC8765-85-86 22:53:19 Test Item Value Reference Range Interpretation Comments Eosinophils # (test code 0.1 See_Comment [A utomated message] The = Eosinophils #) system [facility] h generated this result tra nsmitted reference range : <=0.5. The reference r kat was not used to int erpret this result as normal/abnormal . [facility] HospitalZoiseyxEBNAQEXMGJ2853-86-37 22:53:19 Test Item Value Reference Range Interpretation Comments Monocytes # (test code 0.9 See_Comment [Aut omated message] The = Monocytes #) system which generated this result tra nsmitted reference range : <=0.8. The reference r kat was not used to int erpret this result as normal/abnormal . [facility] HospitalWupujsyALKSGLKDYQ6097-20-32 22:53:19 Test Item Value Reference Range Interpretation Comments Microcyte (test code = 1+ *ABN*(06/07/15 Microcyte) 5:53 PM) [facility] HospitalTudrrlxFDAFRGTEDN8984-87-74 22:53:19 Test Item Value Reference Range Interpretation Comments Basophils # (test code 0.1 See_Comment [Aut omated message] The = Basophils #) system which generated this result tra nsmitted reference range : <=0.2. The reference r kat was not used to int erpret this result as normal/abnormal . [facility] HospitalZwzfxszUNPLELSJZM3409-81-67 22:53:19 Test Item Value Reference Range Interpretation Comments RBC (test code = RBC) 5.23 4.20-5.40 [facility] HospitalOlhfwgqDOGAAOPRNL5774-29-78 22:53:19 Test Item Value Reference Range Interpretation Comments Platelet (test code = Platelet) 241 133-450 [facility] HospitalYhibnbxHHGVCXIKXE2609-80-54 22:53:19 Test Item Value Reference Range Interpretation Comments MPV (test code = MPV) 9.3 7.4-10.4 [facility] HospitalOcophgpNKSLBGQUJH1817-84-57 22:53:19 Test Item Value Reference Range Interpretation Comments RDW (test code = RDW) 16.5 11.5-14.5 [facility] HospitalMhkwznnVECSGLYDVN1063-75-39 22:53:19 Test Item Value Reference Range Interpretation Comments Hct (test code = Hct) 41.0 36.0-48.0 [facility] HospitalZohfbzjBDIBXOIWOT2180-75-57 22:53:19 Test Item Value Reference Range Interpretation Comments Hgb (test code = Hgb) 12.7 12.0-16.0 [facility] HospitalPgwkomyWTDHDIDHVL1122-62-62 22:53:19 Test Item Value Reference Range Interpretation Comments WBC (test code = WBC) 11.5 3.7-10.4 [facility] HospitalQtioejbHHJJHFPCAR1122-89-30 22:53:19 Test Item Value Reference Range Interpretation Comments MCH (test code = MCH) 24.3 pg 27.0-31.0 [facility] HospitalYdoqyeaYQKAQYFEES8547-76-95 22:53:19 Test Item Value Reference Range Interpretation Comments MCHC (test code = MCHC) 31.0 32.0-36.0 [facility] HospitalRknjegwEEZOTBNURH8540-68-09 22:53:19 Test Item Value Reference Range Interpretation Comments MCV (test code = MCV) 78.4 80.0-98.0 [facility] JRNPI0342[facility]43 22:53:19 Test Item Value Reference Range Interpretation Comments FTI (test code = FTI) 2.5 [facility]2015-10-09 22:53:19 Test Item Value Reference Range Interpretation Comments TSH (test code = TSH) 1.540 0.360-3.740 [facility]2015-10-09 22:53:19 Test Item Value Reference Range Interpretation Comments T3 Uptake (test code = T3 Uptake) 31 31-39 [facility]2015-10-09 22:53:19 Test Item Value Reference Range Interpretation Comments T4 (test code = T4) 8.0 4.7-13.3 [facility]2015-10-09 22:53:19 Test Item Value Reference Range Interpretation Comments Transferrin (test code = Transferrin) 256 212-360 [facility]2015-10-09 22:53:19 Test Item Value Reference Range Interpretation Comments Vitamin B12 Lvl (test code = Vitamin [phone] B12 Lvl) [facility]2015-10-09 22:53:19 Test Item Value Reference Range Interpretation Comments eGFR (test code = eGFR) 70 [facility]2015-10-09 22:53:19 Test Item Value Reference Range Interpretation Comments Glucose Lvl (test code = Glucose Lvl) 103 70-99 [facility]2015-10-09 22:53:19 Test Item Value Reference Range Interpretation Comments Albumin Lvl (test code = Albumin Lvl) 3.6 3.5-5.0 [facility]2015-10-09 22:53:19 Test Item Value Reference Range Interpretation Comments CO2 (test code = CO2) 24 24-32 [facility]2015-10-09 22:53:19 Test Item Value Reference Range Interpretation Comments Total Protein (test code = Total 7.2 6.4-8.4 Protein) [facility]2015-10-09 22:53:19 Test Item Value Reference Range Interpretation Comments Creatinine Lvl (test code = Creatinine 1.1 0.5-1.4 Lvl) [facility]2015-10-09 22:53:19 Test Item Value Reference Range Interpretation Comments BUN (test code = BUN) 14 7-22 [facility]2015-10-09 22:53:19 Test Item Value Reference Range Interpretation Comments AST (test code = AST) 12 See_Comment [Auto mated message] The system which ge nerated this result transmit arvind reference range : <=37. The reference range was not used to interpr et this result as mario l/abnormal. [facility]2015-10-09 22:53:19 Test Item Value Reference Range Interpretation Comments ALT (test code = ALT) 41 See_Comment [Auto mated message] The system which ge nerated this result transmit arvind reference range : <=65. The reference range was not used to interpr et this result as mario l/abnormal. [facility]2015-10-09 22:53:19 Test Item Value Reference Range Interpretation Comments Alk Phos (test code = Alk Phos) 100 39-136 [facility]2015-10-09 22:53:19 Test Item Value Reference Range Interpretation Comments Bili Total (test code = Bili Total) 0.2 0.2-1.3 [facility]2015-10-09 22:53:19 Test Item Value Reference Range Interpretation Comments Potassium Lvl (test code = Potassium 3.9 3.5-5.1 Lvl) [facility]2015-10-09 22:53:19 Test Item Value Reference Range Interpretation Comments Sodium Lvl (test code = Sodium Lvl) 141 135-145 [facility]2015-10-09 22:53:19 Test Item Value Reference Range Interpretation Comments Calcium Lvl (test code = Calcium Lvl) 9.0 8.5-10.5 [facility]2015-10-09 22:53:19 Test Item Value Reference Range Interpretation Comments Chloride Lvl (test code = Chloride Lvl) 109 95-109 [facility]2015-10-09 22:53:19 Test Item Value Reference Range Interpretation Comments AGAP (test code = AGAP) 11.9 10.0-20.0 [facility]2015-10-09 22:53:19 Test Item Value Reference Range Interpretation Comments A/G Ratio (test code = A/G Ratio) 1.0 0.7-1.6 [facility]2015-10-09 22:53:19 Test Item Value Reference Range Interpretation Comments B/C Ratio (test code = B/C Ratio) 13 6-[address] [facility] LSLNW9294-45-25 22:53:19 Test Item Value Reference Range Interpretation Comments Globulin (test code = Globulin) 3.6 2.0-4.[address] [facility] ZORHJ1393-88-97 22:53:19 Test Item Value Reference Range Interpretation Comments Magnesium Lvl (test code = Magnesium 1.8 1.8-2.4 Lvl) [facility] HospitalPuunwulYNDFWEEECV6070-01-90 22:53:19 Test Item Value Reference Range Interpretation Comments Segs (test code = Segs) 57.5 45.0-75.0 [facility] HospitalVqfkcxvNLIBIVPKTO6341-52-33 22:53:19 Test Item Value Reference Range Interpretation Comments Monocytes (test code = Monocytes) 7.6 2.0-12.0 [facility] HospitalDjzahkiCBJPNELKWT1702-40-51 22:53:19 Test Item Value Reference Range Interpretation Comments Basophils (test code = 1.0 See_Comment [Aut omated message] The Basophils) system which ge nerated this result tra nsmitted reference range : <=1.0. The reference r kat was not used to int erpret this result as normal/abnormal . [facility] HospitalMfexkeuLPMSHORXBH2544-45-18 22:53:19 Test Item Value Reference Range Interpretation Comments Lymphocytes (test code = Lymphocytes) 32.9 20.0-40.0 [facility] HospitalAnkdudsPAAYCFBHPR8606-51-95 22:53:19 Test Item Value Reference Range Interpretation Comments Eosinophils (test code = 1.0 See_Comment [A utomated message] The Eosinophils) system which ge nerated this result tra nsmitted reference range : <=4.0. The reference r kat was not used to int erpret this result as normal/abnormal . [facility] HospitalEpernsdCHEUTOKCPK9594-30-84 22:53:19 Test Item Value Reference Range Interpretation Comments Lymphocytes # (test code = Lymphocytes 3.8 1.0-5.5 #) [facility] HospitalQyiaotrMNXXUAOFHB7200-23-03 22:53:19 Test Item Value Reference Range Interpretation Comments Segs-Bands # (test code = Segs-Bands #) 6.6 1.5-8.1 [facility] HospitalDdnuhroQEPGSGYBPR1572-45-19 22:53:19 Test Item Value Reference Range Interpretation Comments Eosinophils # (test code 0.1 See_Comment [A utomated message] The = Eosinophils #) system whic h generated this result tra nsmitted reference range : <=0.5. The reference r kat was not used to int erpret this result as normal/abnormal . [facility] HospitalHmoxbpmQWQTPHRVCV4505-58-86 22:53:19 Test Item Value Reference Range Interpretation Comments Monocytes # (test code 0.9 See_Comment [Aut omated message] The = Monocytes #) system which generated this result tra nsmitted reference range : <=0.8. The reference r kat was not used to int erpret this result as normal/abnormal . [facility] HospitalAxflwbrPUAJXVPOGE7239-79-66 22:53:19 Test Item Value Reference Range Interpretation Comments Microcyte (test code = 1+ *ABN*(06/07/15 Microcyte) 5:53 PM) [facility] HospitalWjegfllSRKZEVPLMG9522-15-34 22:53:19 Test Item Value Reference Range Interpretation Comments Basophils # (test code 0.1 See_Comment [Aut omated message] The = Basophils #) system which generated this result tra nsmitted reference range : <=0.2. The reference r kat was not used to int erpret this result as normal/abnormal . [facility]PBPTB[facility]VF7693[facility]57-40 22:53:19 Test Item Value Reference Range Interpretation Comments RBC (test code = RBC) 5.23 4.20-5.40 [facility]QykqdmxVIDOINTCNK4997-30-38 22:53:19 Test Item Value Reference Range Interpretation Comments Platelet (test code = Platelet) 241 133-450 [facility] HospitalPynceqyHRPSEZFWHB3857-28-66 22:53:19 Test Item Value Reference Range Interpretation Comments MPV (test code = MPV) 9.3 7.4-10.4 [facility]AmnuajqEHSXJJXQCR5943-36-62 22:53:19 Test Item Value Reference Range Interpretation Comments RDW (test code = RDW) 16.5 11.5-14.5 [facility] HospitalGvsxdvoUABUIYXRBL0730-97-20 22:53:19 Test Item Value Reference Range Interpretation Comments Hct (test code = Hct) 41.0 36.0-48.0 [facility] HospitalMpgpynpNGTXSUEKFY2316-26-87 22:53:19 Test Item Value Reference Range Interpretation Comments Hgb (test code = Hgb) 12.7 12.0-16.0 [facility] HospitalFluydtwAMSTYANUYJ1022-06-73 22:53:19 Test Item Value Reference Range Interpretation Comments WBC (test code = WBC) 11.5 3.7-10.4 [facility] HospitalGcqbkjjARULKHTUUE6447-25-66 22:53:19 Test Item Value Reference Range Interpretation Comments MCH (test code = MCH) 24.3 pg 27.0-31.0 [facility] HospitalBrdzlqqYGFDDFDYRO8805-68-90 22:53:19 Test Item Value Reference Range Interpretation Comments MCHC (test code = MCHC) 31.0 32.0-36.0 [facility] HospitalDsncysvUXGFMNFVMK8804-84-39 22:53:19 Test Item Value Reference Range Interpretation Comments MCV (test code = MCV) 78.4 80.0-98.0 [facility]2015-10-09 22:53:19 Test Item Value Reference Range Interpretation Comments FTI (test code = FTI) 2.5 [facility]2015-10-09 22:53:19 Test Item Value Reference Range Interpretation Comments TSH (test code = TSH) 1.540 0.360-3.740 [facility]2015-10-09 22:53:19 Test Item Value Reference Range Interpretation Comments T3 Uptake (test code = T3 Uptake) 31 31-39 [facility]2015-10-09 22:53:19 Test Item Value Reference Range Interpretation Comments T4 (test code = T4) 8.0 4.7-13.3 [facility]2015-10-09 22:53:19 Test Item Value Reference Range Interpretation Comments Transferrin (test code = Transferrin) 256 212-360 [facility]2015-10-09 22:53:19 Test Item Value Reference Range Interpretation Comments Vitamin B12 Lvl (test code = Vitamin [phone] B12 Lvl) [facility]2015-10-09 22:53:19 Test Item Value Reference Range Interpretation Comments eGFR (test code = eGFR) 70 [facility]2015-10-09 22:53:19 Test Item Value Reference Range Interpretation Comments Glucose Lvl (test code = Glucose Lvl) 103 70-99 [facility]2015-10-09 22:53:19 Test Item Value Reference Range Interpretation Comments Albumin Lvl (test code = Albumin Lvl) 3.6 3.5-5.0 [facility]2015-10-09 22:53:19 Test Item Value Reference Range Interpretation Comments CO2 (test code = CO2) 24 24-32 [facility]2015-10-09 22:53:19 Test Item Value Reference Range Interpretation Comments Total Protein (test code = Total 7.2 6.4-8.4 Protein) [facility]2015-10-09 22:53:19 Test Item Value Reference Range Interpretation Comments Creatinine Lvl (test code = Creatinine 1.1 0.5-1.4 Lvl) [facility]2015-10-09 22:53:19 Test Item Value Reference Range Interpretation Comments BUN (test code = BUN) 14 7-22 [facility]2015-10-09 22:53:19 Test Item Value Reference Range Interpretation Comments AST (test code = AST) 12 See_Comment [Auto mated message] The system which ge nerated this result transmit arvind reference range : <=37. The reference range was not used to interpr et this result as mario l/abnormal. [facility]2015-10-09 22:53:19 Test Item Value Reference Range Interpretation Comments ALT (test code = ALT) 41 See_Comment [Auto mated message] The system which ge nerated this result transmit arvind reference range : <=65. The reference range was not used to interpr et this result as mario l/abnormal. [facility]2015-10-09 22:53:19 Test Item Value Reference Range Interpretation Comments Alk Phos (test code = Alk Phos) 100 39-136 [facility]2015-10-09 22:53:19 Test Item Value Reference Range Interpretation Comments Bili Total (test code = Bili Total) 0.2 0.2-1.3 [facility]2015-10-09 22:53:19 Test Item Value Reference Range Interpretation Comments Potassium Lvl (test code = Potassium 3.9 3.5-5.1 Lvl) [facility]2015-10-09 22:53:19 Test Item Value Reference Range Interpretation Comments Sodium Lvl (test code = Sodium Lvl) 141 135-145 [facility]2015-10-09 22:53:19 Test Item Value Reference Range Interpretation Comments Calcium Lvl (test code = Calcium Lvl) 9.0 8.5-10.5 [facility]2015-10-09 22:53:19 Test Item Value Reference Range Interpretation Comments Chloride Lvl (test code = Chloride Lvl) 109 95-109 [facility]2015-10-09 22:53:19 Test Item Value Reference Range Interpretation Comments AGAP (test code = AGAP) 11.9 10.0-20.0 [facility]2015-10-09 22:53:19 Test Item Value Reference Range Interpretation Comments A/G Ratio (test code = A/G Ratio) 1.0 0.7-1.6 [facility]2015-10-09 22:53:19 Test Item Value Reference Range Interpretation Comments B/C Ratio (test code = B/C Ratio) 13 6-25 [facility]2015-10-09 22:53:19 Test Item Value Reference Range Interpretation Comments Globulin (test code = Globulin) 3.6 2.0-4.0 [facility]2015-10-09 22:53:19 Test Item Value Reference Range Interpretation Comments Magnesium Lvl (test code = Magnesium 1.8 1.8-2.4 Lvl) [facility]JphlfrjLUDJFBZVWX7660-01-19 22:53:19 Test Item Value Reference Range Interpretation Comments Segs (test code = Segs) 57.5 45.0-75.0 [facility] HospitalAwcimznNXGSDOYJME7565-15-91 22:53:19 Test Item Value Reference Range Interpretation Comments Monocytes (test code = Monocytes) 7.6 2.0-12.0 [facility] HospitalPtynhmpZIOVQYSKVU7183-58-25 22:53:19 Test Item Value Reference Range Interpretation Comments Basophils (test code = 1.0 See_Comment [Aut omated message] The Basophils) system which ge nerated this result tra nsmitted reference range : <=1.0. The reference r kat was not used to int erpret this result as normal/abnormal . [facility] HospitalYghcudyPRKLLOYQGR0374-85-83 22:53:19 Test Item Value Reference Range Interpretation Comments Lymphocytes (test code = Lymphocytes) 32.9 20.0-40.0 [facility] HospitalGgapqqqAFBUMCHIYW3272-27-38 22:53:19 Test Item Value Reference Range Interpretation Comments Eosinophils (test code = 1.0 See_Comment [A utomated message] The Eosinophils) system which ge nerated this result tra nsmitted reference range : <=4.0. The reference r kat was not used to int erpret this result as normal/abnormal . [facility] HospitalCfcnwizCVVHJCZTHN3017-03-61 22:53:19 Test Item Value Reference Range Interpretation Comments Lymphocytes # (test code = Lymphocytes 3.8 1.0-5.5 #) [facility] HospitalNgsngvrOPWACYNDCP7605-81-71 22:53:19 Test Item Value Reference Range Interpretation Comments Segs-Bands # (test code = Segs-Bands #) 6.6 1.5-8.1 [facility] HospitalVfvrnngMYVEHWLFTP3545-51-86 22:53:19 Test Item Value Reference Range Interpretation Comments Eosinophils # (test code 0.1 See_Comment [A utomated message] The = Eosinophils #) system whic h generated this result tra nsmitted reference range : <=0.5. The reference r kat was not used to int erpret this result as normal/abnormal . [facility] HospitalWqzfzpqFJARZCHXIT0832-61-02 22:53:19 Test Item Value Reference Range Interpretation Comments Monocytes # (test code 0.9 See_Comment [Aut omated message] The = Monocytes #) system which generated this result tra nsmitted reference range : <=0.8. The reference r kat was not used to int erpret this result as normal/abnormal . [facility] HospitalYsnjizwMQTRSLDMOA8612-43-55 22:53:19 Test Item Value Reference Range Interpretation Comments Microcyte (test code = 1+ *ABN*(06/07/15 Microcyte) 5:53 PM) [facility] HospitalSegryfpHJKPHZHKUN2827-01-33 22:53:19 Test Item Value Reference Range Interpretation Comments Basophils # (test code 0.1 See_Comment [Aut omated message] The = Basophils #) system which generated this result tra nsmitted reference range : <=0.2. The reference r kat was not used to int erpret this result as normal/abnormal . [facility] HospitalAbtpultKBLDKFFKHU8402-16-86 22:53:19 Test Item Value Reference Range Interpretation Comments RBC (test code = RBC) 5.23 4.20-5.40 [facility] HospitalHkshqziGHDXEZBSXE6965-37-48 22:53:19 Test Item Value Reference Range Interpretation Comments Platelet (test code = Platelet) 241 133-450 [facility] HospitalXqbfpqdHPBOSZGECM7730-69-69 22:53:19 Test Item Value Reference Range Interpretation Comments MPV (test code = MPV) 9.3 7.4-10.4 [facility] HospitalBzhrcloXJFHORZAXW7586-36-35 22:53:19 Test Item Value Reference Range Interpretation Comments RDW (test code = RDW) 16.5 11.5-14.5 [facility] HospitalKqqkuytGXORXCVNJX5840-81-78 22:53:19 Test Item Value Reference Range Interpretation Comments Hct (test code = Hct) 41.0 36.0-48.0 [facility] HospitalTmgumuzHUYKHIJIRN6694-00-00 22:53:19 Test Item Value Reference Range Interpretation Comments Hgb (test code = Hgb) 12.7 12.0-16.0 [facility] HospitalVnnnstjQBGJNNRDKY0899-23-32 22:53:19 Test Item Value Reference Range Interpretation Comments WBC (test code = WBC) 11.5 3.7-10.4 [facility] HospitalJfleydhNGOQMECPSL3378-49-57 22:53:19 Test Item Value Reference Range Interpretation Comments MCH (test code = MCH) 24.3 pg 27.0-31.0 [facility] HospitalAmogmnfYJBEOQVWOX1810-46-04 22:53:19 Test Item Value Reference Range Interpretation Comments MCHC (test code = MCHC) 31.0 32.0-36.0 [facility] HospitalRyfjzznPWMAYKCYGI3179-94-87 22:53:19 Test Item Value Reference Range Interpretation Comments MCV (test code = MCV) 78.4 80.0-98.0 [facility]AYCX07[facility] 22:53:19 Test Item Value Reference Range Interpretation Comments FTI (test code = FTI) 2.5 [facility] NWSTI9108-50-37 22:53:19 Test Item Value Reference Range Interpretation Comments TSH (test code = TSH) 1.540 0.360-3.740 [facility]ZH8454[facility]-77 22:53:19 Test Item Value Reference Range Interpretation Comments T3 Uptake (test code = T3 Uptake) 31 31-39 [facility] STSBO7159-28-69 22:53:19 Test Item Value Reference Range Interpretation Comments T4 (test code = T4) 8.0 4.7-13.3 [facility]2015-10-09 22:53:19 Test Item Value Reference Range Interpretation Comments Transferrin (test code = Transferrin) 256 212-360 [facility]2015-10-09 22:53:19 Test Item Value Reference Range Interpretation Comments Vitamin B12 Lvl (test code = Vitamin [phone] B12 Lvl) [facility]2015-10-09 22:53:19 Test Item Value Reference Range Interpretation Comments eGFR (test code = eGFR) 70 [facility]2015-10-09 22:53:19 Test Item Value Reference Range Interpretation Comments Glucose Lvl (test code = Glucose Lvl) 103 70-99 [facility]2015-10-09 22:53:19 Test Item Value Reference Range Interpretation Comments Albumin Lvl (test code = Albumin Lvl) 3.6 3.5-5.0 [facility]2015-10-09 22:53:19 Test Item Value Reference Range Interpretation Comments CO2 (test code = CO2) 24 24-32 [facility]2015-10-09 22:53:19 Test Item Value Reference Range Interpretation Comments Total Protein (test code = Total 7.2 6.4-8.4 Protein) [facility]2015-10-09 22:53:19 Test Item Value Reference Range Interpretation Comments Creatinine Lvl (test code = Creatinine 1.1 0.5-1.4 Lvl) [facility]2015-10-09 22:53:19 Test Item Value Reference Range Interpretation Comments BUN (test code = BUN) 14 7-22 [facility]2015-10-09 22:53:19 Test Item Value Reference Range Interpretation Comments AST (test code = AST) 12 See_Comment [Auto mated message] The system which ge nerated this result transmit arvind reference range : <=37. The reference range was not used to interpr et this result as mario l/abnormal. [facility]2015-10-09 22:53:19 Test Item Value Reference Range Interpretation Comments ALT (test code = ALT) 41 See_Comment [Auto mated message] The system which ge nerated this result transmit arvind reference range : <=65. The reference range was not used to interpr et this result as mario l/abnormal. [place] 842925-10-09 22:53:19 Test Item Value Reference Range Interpretation Comments Alk Phos (test code = Alk Phos) 100 39-136 [facility]2015-10-09 22:53:19 Test Item Value Reference Range Interpretation Comments Bili Total (test code = Bili Total) 0.2 0.2-1.3 [facility]2015-10-09 22:53:19 Test Item Value Reference Range Interpretation Comments Potassium Lvl (test code = Potassium 3.9 3.5-5.1 Lvl) [facility]2015-10-09 22:53:19 Test Item Value Reference Range Interpretation Comments Sodium Lvl (test code = Sodium Lvl) 141 135-145 [facility]2015-10-09 22:53:19 Test Item Value Reference Range Interpretation Comments Calcium Lvl (test code = Calcium Lvl) 9.0 8.5-10.5 [facility]2015-10-09 22:53:19 Test Item Value Reference Range Interpretation Comments Chloride Lvl (test code = Chloride Lvl) 109 95-109 [facility]2015-10-09 22:53:19 Test Item Value Reference Range Interpretation Comments AGAP (test code = AGAP) 11.9 10.0-20.0 [facility]2015-10-09 22:53:19 Test Item Value Reference Range Interpretation Comments A/G Ratio (test code = A/G Ratio) 1.0 0.7-1.6 [facility]2015-10-09 22:53:19 Test Item Value Reference Range Interpretation Comments B/C Ratio (test code = B/C Ratio) 13 6-25 [facility]2015-10-09 22:53:19 Test Item Value Reference Range Interpretation Comments Globulin (test code = Globulin) 3.6 2.0-4.0 [facility]2015-10-09 22:53:19 Test Item Value Reference Range Interpretation Comments Magnesium Lvl (test code = Magnesium 1.8 1.8-2.4 Lvl) [facility] HospitalZktghdyQGTRIIAQZV0592-80-55 22:53:19 Test Item Value Reference Range Interpretation Comments Segs (test code = Segs) 57.5 45.0-75.0 [facility] HospitalJizfltbQQCGRDYSNH7890-08-33 22:53:19 Test Item Value Reference Range Interpretation Comments Monocytes (test code = Monocytes) 7.6 2.0-12.0 [facility] HospitalGuvgtalCFKOJIGMZE1553-77-26 22:53:19 Test Item Value Reference Range Interpretation Comments Basophils (test code = 1.0 See_Comment [Aut omated message] The Basophils) system which ge nerated this result tra nsmitted reference range : <=1.0. The reference r kat was not used to int erpret this result as normal/abnormal . [facility] HospitalJaipeolGDRBZKSQSF1833-47-68 22:53:19 Test Item Value Reference Range Interpretation Comments Lymphocytes (test code = Lymphocytes) 32.9 20.0-40.0 [facility] HospitalPdvzcwiUBKIUHIXZT4664-66-34 22:53:19 Test Item Value Reference Range Interpretation Comments Eosinophils (test code = 1.0 See_Comment [A utomated message] The Eosinophils) system which ge nerated this result tra nsmitted reference range : <=4.0. The reference r kat was not used to int erpret this result as normal/abnormal . [facility] HospitalWtnzaaxZLRCVAISPP8561-99-08 22:53:19 Test Item Value Reference Range Interpretation Comments Lymphocytes # (test code = Lymphocytes 3.8 1.0-5.5 #) [facility] HospitalZgzffuwILZHKFISYL3916-34-68 22:53:19 Test Item Value Reference Range Interpretation Comments Segs-Bands # (test code = Segs-Bands #) 6.6 1.5-8.1 [facility] HospitalQwtrpnoIMXMJSTVXH3527-31-14 22:53:19 Test Item Value Reference Range Interpretation Comments Eosinophils # (test code 0.1 See_Comment [A utomated message] The = Eosinophils #) system whic h generated this result tra nsmitted reference range : <=0.5. The reference r kat was not used to int erpret this result as normal/abnormal . [facility] HospitalCgszrphZIUGXKYEIR9864-66-98 22:53:19 Test Item Value Reference Range Interpretation Comments Monocytes # (test code 0.9 See_Comment [Aut omated message] The = Monocytes #) system which generated this result tra nsmitted reference range : <=0.8. The reference r kat was not used to int erpret this result as normal/abnormal . [facility] HospitalXtynomyFDYZCIZQRI1625-81-57 22:53:19 Test Item Value Reference Range Interpretation Comments Microcyte (test code = 1+ *ABN*(06/07/15 Microcyte) 5:53 PM) [facility] HospitalMwkexryOLPRMHYCIF6667-99-41 22:53:19 Test Item Value Reference Range Interpretation Comments Basophils # (test code 0.1 See_Comment [Aut omated message] The = Basophils #) system which generated this result tra nsmitted reference range : <=0.2. The reference r kat was not used to int erpret this result as normal/abnormal . [facility] HospitalOqhrebcITIFRUSZQP8412-07-27 22:53:19 Test Item Value Reference Range Interpretation Comments RBC (test code = RBC) 5.23 4.20-5.40 [facility] HospitalPgvlnylNLYOLCPVSR6234-00-40 22:53:19 Test Item Value Reference Range Interpretation Comments Platelet (test code = Platelet) 241 133-450 [facility] HospitalGqzgeubHXZOVDQOVZ7726-74-32 22:53:19 Test Item Value Reference Range Interpretation Comments MPV (test code = MPV) 9.3 7.4-10.4 [facility] HospitalEvervtuNCJEXPVGGD4187-96-34 22:53:19 Test Item Value Reference Range Interpretation Comments RDW (test code = RDW) 16.5 11.5-14.5 [facility] HospitalLnmtmpgCADDMPVFIH6226-50-25 22:53:19 Test Item Value Reference Range Interpretation Comments Hct (test code = Hct) 41.0 36.0-48.0 [facility] HospitalTwbieghRVQAJNSKNK6470-12-59 22:53:19 Test Item Value Reference Range Interpretation Comments Hgb (test code = Hgb) 12.7 12.0-16.0 [facility] HospitalAihwtatENIZLPPFTV1426-68-79 22:53:19 Test Item Value Reference Range Interpretation Comments WBC (test code = WBC) 11.5 3.7-10.4 [facility] HospitalWrvqekfJRGLQXYGLQ1145-89-82 22:53:19 Test Item Value Reference Range Interpretation Comments MCH (test code = MCH) 24.3 pg 27.0-31.0 [facility] HospitalMgojurhXNGKYSUBCT8135-03-34 22:53:19 Test Item Value Reference Range Interpretation Comments MCHC (test code = MCHC) 31.0 32.0-36.0 [facility] HospitalJqmfzdsYBUCVPMAWQ1587-02-42 22:53:19 Test Item Value Reference Range Interpretation Comments MCV (test code = MCV) 78.4 80.0-98.0 [facility]2015-10-09 22:53:19 Test Item Value Reference Range Interpretation Comments FTI (test code = FTI) 2.5 [facility]2015-10-09 22:53:19 Test Item Value Reference Range Interpretation Comments TSH (test code = TSH) 1.540 0.360-3.740 [facility]2015-10-09 22:53:19 Test Item Value Reference Range Interpretation Comments T3 Uptake (test code = T3 Uptake) 31 31-39 [facility]2015-10-09 22:53:19 Test Item Value Reference Range Interpretation Comments T4 (test code = T4) 8.0 4.7-13.3 [facility]2015-10-09 22:53:19 Test Item Value Reference Range Interpretation Comments Transferrin (test code = Transferrin) 256 212-360 [facility]2015-10-09 22:53:19 Test Item Value Reference Range Interpretation Comments Vitamin B12 Lvl (test code = Vitamin [phone] B12 Lvl) [facility]2015-10-09 22:53:19 Test Item Value Reference Range Interpretation Comments eGFR (test code = eGFR) 70 [facility]2015-10-09 22:53:19 Test Item Value Reference Range Interpretation Comments Glucose Lvl (test code = Glucose Lvl) 103 70-99 [facility]2015-10-09 22:53:19 Test Item Value Reference Range Interpretation Comments Albumin Lvl (test code = Albumin Lvl) 3.6 3.5-5.0 [facility]2015-10-09 22:53:19 Test Item Value Reference Range Interpretation Comments CO2 (test code = CO2) 24 24-32 [facility]2015-10-09 22:53:19 Test Item Value Reference Range Interpretation Comments Total Protein (test code = Total 7.2 6.4-8.4 Protein) [facility]2015-10-09 22:53:19 Test Item Value Reference Range Interpretation Comments Creatinine Lvl (test code = Creatinine 1.1 0.5-1.4 Lvl) [facility]2015-10-09 22:53:19 Test Item Value Reference Range Interpretation Comments BUN (test code = BUN) 14 7-22 [facility]2015-10-09 22:53:19 Test Item Value Reference Range Interpretation Comments AST (test code = AST) 12 See_Comment [Auto mated message] The system which ge nerated this result transmit arvind reference range : <=37. The reference range was not used to interpr et this result as mario l/abnormal. [facility]2015-10-09 22:53:19 Test Item Value Reference Range Interpretation Comments ALT (test code = ALT) 41 See_Comment [Auto mated message] The system which ge nerated this result transmit arvind reference range : <=65. The reference range was not used to interpr et this result as mario l/abnormal. [facility]2015-10-09 22:53:19 Test Item Value Reference Range Interpretation Comments Alk Phos (test code = Alk Phos) 100 39-136 [facility]2015-10-09 22:53:19 Test Item Value Reference Range Interpretation Comments Bili Total (test code = Bili Total) 0.2 0.2-1.3 [facility]2015-10-09 22:53:19 Test Item Value Reference Range Interpretation Comments Potassium Lvl (test code = Potassium 3.9 3.5-5.1 Lvl) [facility]2015-10-09 22:53:19 Test Item Value Reference Range Interpretation Comments Sodium Lvl (test code = Sodium Lvl) 141 135-145 [facility]2015-10-09 22:53:19 Test Item Value Reference Range Interpretation Comments Calcium Lvl (test code = Calcium Lvl) 9.0 8.5-10.5 [facility]2015-10-09 22:53:19 Test Item Value Reference Range Interpretation Comments Chloride Lvl (test code = Chloride Lvl) 109 95-109 [facility]2015-10-09 22:53:19 Test Item Value Reference Range Interpretation Comments AGAP (test code = AGAP) 11.9 10.0-20.0 [facility]2015-10-09 22:53:19 Test Item Value Reference Range Interpretation Comments A/G Ratio (test code = A/G Ratio) 1.0 0.7-1.6 [facility]2015-10-09 22:53:19 Test Item Value Reference Range Interpretation Comments B/C Ratio (test code = B/C Ratio) 13 6-25 [facility]2015-10-09 22:53:19 Test Item Value Reference Range Interpretation Comments Globulin (test code = Globulin) 3.6 2.0-4.0 [facility]2015-10-09 22:53:19 Test Item Value Reference Range Interpretation Comments Magnesium Lvl (test code = Magnesium 1.8 1.8-2.4 Lvl) [facility] HospitalSckmioyLKFYSIATLQ6035-32-59 22:53:19 Test Item Value Reference Range Interpretation Comments Segs (test code = Segs) 57.5 45.0-75.0 [facility]cdifidOBIUOAONOY3866-26-67 22:53:19 Test Item Value Reference Range Interpretation Comments Monocytes (test code = Monocytes) 7.6 2.0-12.0 [facility] HospitalBwkrrgzLTZZYPPXYJ4882-08-16 22:53:19 Test Item Value Reference Range Interpretation Comments Basophils (test code = 1.0 See_Comment [Aut omated message] The Basophils) system which ge nerated this result tra nsmitted reference range : <=1.0. The reference r kat was not used to int erpret this result as normal/abnormal . [facility]NphyyvyXHZEACHLOC1901-20-10 22:53:19 Test Item Value Reference Range Interpretation Comments Lymphocytes (test code = Lymphocytes) 32.9 20.0-40.0 [facility] HospitalHbkyzrtKDPTLRUBJJ3130-07-80 22:53:19 Test Item Value Reference Range Interpretation Comments Eosinophils (test code = 1.0 See_Comment [A utomated message] The Eosinophils) system which ge nerated this result tra nsmitted reference range : <=4.0. The reference r kat was not used to int erpret this result as normal/abnormal . [facility] HospitalIehhrcyXLSKNXRNKP0401-36-69 22:53:19 Test Item Value Reference Range Interpretation Comments Lymphocytes # (test code = Lymphocytes 3.8 1.0-5.5 #) [facility] HospitalQxecavzYFLKNMJFTJ2146-54-41 22:53:19 Test Item Value Reference Range Interpretation Comments Segs-Bands # (test code = Segs-Bands #) 6.6 1.5-8.1 [facility] HospitalHenaclmUDBYYXKYLO0177-77-35 22:53:19 Test Item Value Reference Range Interpretation Comments Eosinophils # (test code 0.1 See_Comment [A utomated message] The = Eosinophils #) system whic h generated this result tra nsmitted reference range : <=0.5. The reference r kat was not used to int erpret this result as normal/abnormal . [facility] HospitalWibqwxlAKNSLSUHJD4289-05-64 22:53:19 Test Item Value Reference Range Interpretation Comments Monocytes # (test code 0.9 See_Comment [Aut omated message] The = Monocytes #) system which generated this result tra nsmitted reference range : <=0.8. The reference r kat was not used to int erpret this result as normal/abnormal . [facility] HospitalXtcfmjiEZVBVDSZRT9893-45-35 22:53:19 Test Item Value Reference Range Interpretation Comments Microcyte (test code = 1+ *ABN*(06/07/15 Microcyte) 5:53 PM) [facility] HospitalAzkauwvRGBDXLDVJT6596-04-87 22:53:19 Test Item Value Reference Range Interpretation Comments Basophils # (test code 0.1 See_Comment [Aut omated message] The = Basophils #) system which generated this result tra nsmitted reference range : <=0.2. The reference r kat was not used to int erpret this result as normal/abnormal . [facility] HospitalVfittyfIWGJLDNDMC2091-56-20 22:53:19 Test Item Value Reference Range Interpretation Comments RBC (test code = RBC) 5.23 4.20-5.40 [facility] HospitalFmjnhfaIHBXBRPSYT4438-69-25 22:53:19 Test Item Value Reference Range Interpretation Comments Platelet (test code = Platelet) 241 133-450 [facility] HospitalMowtwtwASFIOJBDXB8188-78-88 22:53:19 Test Item Value Reference Range Interpretation Comments MPV (test code = MPV) 9.3 7.4-10.4 [facility] HospitalXmhqunjAYZJFAKLNM4414-52-08 22:53:19 Test Item Value Reference Range Interpretation Comments RDW (test code = RDW) 16.5 11.5-14.5 [facility] HospitalXqoyvmcXZSRLXUZOO9221-82-43 22:53:19 Test Item Value Reference Range Interpretation Comments Hct (test code = Hct) 41.0 36.0-48.0 [facility] HospitalAwsybfcNRQPQGSDGW9414-38-58 22:53:19 Test Item Value Reference Range Interpretation Comments Hgb (test code = Hgb) 12.7 12.0-16.0 [facility] HospitalDfmjfuiQKDVQXHRYN8523-72-66 22:53:19 Test Item Value Reference Range Interpretation Comments WBC (test code = WBC) 11.5 3.7-10.4 [facility] HospitalCvlbolmQJLKBQARQW5495-76-59 22:53:19 Test Item Value Reference Range Interpretation Comments MCH (test code = MCH) 24.3 pg 27.0-31.0 [facility] HospitalDqanhbxFXWNDOGQYT7147-96-66 22:53:19 Test Item Value Reference Range Interpretation Comments MCHC (test code = MCHC) 31.0 32.0-36.0 [facility] HospitalOrylishMMAKGHKYMK0651-62-94 22:53:19 Test Item Value Reference Range Interpretation Comments MCV (test code = MCV) 78.4 80.0-98.0 [facility]2015-10-09 22:53:19 Test Item Value Reference Range Interpretation Comments FTI (test code = FTI) 2.5 [facility]2015-10-09 22:53:19 Test Item Value Reference Range Interpretation Comments TSH (test code = TSH) 1.540 0.360-3.740 [facility]2015-10-09 22:53:19 Test Item Value Reference Range Interpretation Comments T3 Uptake (test code = T3 Uptake) 31 31-39 [facility]2015-10-09 22:53:19 Test Item Value Reference Range Interpretation Comments T4 (test code = T4) 8.0 4.7-13.3 [facility]2015-10-09 22:53:19 Test Item Value Reference Range Interpretation Comments Transferrin (test code = Transferrin) 256 212-360 [facility]2015-10-09 22:53:19 Test Item Value Reference Range Interpretation Comments Vitamin B12 Lvl (test code = Vitamin [phone] B12 Lvl) [facility]2015-10-09 22:53:19 Test Item Value Reference Range Interpretation Comments eGFR (test code = eGFR) 70 [facility]2015-10-09 22:53:19 Test Item Value Reference Range Interpretation Comments Glucose Lvl (test code = Glucose Lvl) 103 70-99 [facility]2015-10-09 22:53:19 Test Item Value Reference Range Interpretation Comments Albumin Lvl (test code = Albumin Lvl) 3.6 3.5-5.0 [facility]2015-10-09 22:53:19 Test Item Value Reference Range Interpretation Comments CO2 (test code = CO2) 24 24-32 [facility]2015-10-09 22:53:19 Test Item Value Reference Range Interpretation Comments Total Protein (test code = Total 7.2 6.4-8.4 Protein) [facility]2015-10-09 22:53:19 Test Item Value Reference Range Interpretation Comments Creatinine Lvl (test code = Creatinine 1.1 0.5-1.4 Lvl) [facility]2015-10-09 22:53:19 Test Item Value Reference Range Interpretation Comments BUN (test code = BUN) 14 7-22 [facility]2015-10-09 22:53:19 Test Item Value Reference Range Interpretation Comments AST (test code = AST) 12 See_Comment [Auto mated message] The system which ge nerated this result transmit arvind reference range : <=37. The reference range was not used to interpr et this result as mario l/abnormal. [facility]2015-10-09 22:53:19 Test Item Value Reference Range Interpretation Comments ALT (test code = ALT) 41 See_Comment [Auto mated message] The system which ge nerated this result transmit arvind reference range : <=65. The reference range was not used to interpr et this result as mario l/abnormal. [facility]2015-10-09 22:53:19 Test Item Value Reference Range Interpretation Comments Alk Phos (test code = Alk Phos) 100 39-136 [facility]2015-10-09 22:53:19 Test Item Value Reference Range Interpretation Comments Bili Total (test code = Bili Total) 0.2 0.2-1.3 [facility]2015-10-09 22:53:19 Test Item Value Reference Range Interpretation Comments Potassium Lvl (test code = Potassium 3.9 3.5-5.1 Lvl) [facility]2015-10-09 22:53:19 Test Item Value Reference Range Interpretation Comments Sodium Lvl (test code = Sodium Lvl) 141 135-145 [facility]2015-10-09 22:53:19 Test Item Value Reference Range Interpretation Comments Calcium Lvl (test code = Calcium Lvl) 9.0 8.5-10.5 [facility]2015-10-09 22:53:19 Test Item Value Reference Range Interpretation Comments Chloride Lvl (test code = Chloride Lvl) 109 95-109 [facility]2015-10-09 22:53:19 Test Item Value Reference Range Interpretation Comments AGAP (test code = AGAP) 11.9 10.0-20.0 [facility]2015-10-09 22:53:19 Test Item Value Reference Range Interpretation Comments A/G Ratio (test code = A/G Ratio) 1.0 0.7-1.6 [facility]2015-10-09 22:53:19 Test Item Value Reference Range Interpretation Comments B/C Ratio (test code = B/C Ratio) 13 6-25 [facility]2015-10-09 22:53:19 Test Item Value Reference Range Interpretation Comments Globulin (test code = Globulin) 3.6 2.0-4.0 [facility]2015-10-09 22:53:19 Test Item Value Reference Range Interpretation Comments Magnesium Lvl (test code = Magnesium 1.8 1.8-2.4 Lvl) [facility] HospitalJibsaqlFJZYTGRBGR1046-72-24 22:53:19 Test Item Value Reference Range Interpretation Comments Segs (test code = Segs) 57.5 45.0-75.0 [facility] HospitalYzdutkjYFBRXDHPFF9611-75-26 22:53:19 Test Item Value Reference Range Interpretation Comments Monocytes (test code = Monocytes) 7.6 2.0-12.0 [facility] HospitalXpixmagMURUHIILUT2328-79-89 22:53:19 Test Item Value Reference Range Interpretation Comments Basophils (test code = 1.0 See_Comment [Aut omated message] The Basophils) system which ge nerated this result tra nsmitted reference range : <=1.0. The reference r kat was not used to int erpret this result as normal/abnormal . [facility] HospitalZcikbshDJUQGDPDVM8830-62-69 22:53:19 Test Item Value Reference Range Interpretation Comments Lymphocytes (test code = Lymphocytes) 32.9 20.0-40.0 [facility] HospitalXbzulyqFWDPKFUVQI9041-58-86 22:53:19 Test Item Value Reference Range Interpretation Comments Eosinophils (test code = 1.0 See_Comment [A utomated message] The Eosinophils) system which ge nerated this result tra nsmitted reference range : <=4.0. The reference r kat was not used to int erpret this result as normal/abnormal . [facility] HospitalHohomydVTIUYEUWBU8449-93-32 22:53:19 Test Item Value Reference Range Interpretation Comments Lymphocytes # (test code = Lymphocytes 3.8 1.0-5.5 #) [facility] HospitalVsxdpyaYGZHNSQFOR7264-71-79 22:53:19 Test Item Value Reference Range Interpretation Comments Segs-Bands # (test code = Segs-Bands #) 6.6 1.5-8.1 [facility] HospitalPxksnejTSSWUMNDTZ4450-83-58 22:53:19 Test Item Value Reference Range Interpretation Comments Eosinophils # (test code 0.1 See_Comment [A utomated message] The = Eosinophils #) system wh h generated this result tra nsmitted reference range : <=0.5. The reference r kat was not used to int erpret this result as normal/abnormal . [facility] HospitalXitpuigONRIWVYVBP0014-90-74 22:53:19 Test Item Value Reference Range Interpretation Comments Monocytes # (test code 0.9 See_Comment [Aut omated message] The = Monocytes #) system which generated this result tra nsmitted reference range : <=0.8. The reference r kat was not used to int erpret this result as normal/abnormal . [facility] HospitalOwtkcpfGZXOAUNYFF9915-24-78 22:53:19 Test Item Value Reference Range Interpretation Comments Microcyte (test code = 1+ *ABN*(06/07/15 Microcyte) 5:53 PM) [facility] HospitalQjnromvIVFTFMAFLY4645-43-60 22:53:19 Test Item Value Reference Range Interpretation Comments Basophils # (test code 0.1 See_Comment [Aut omated message] The = Basophils #) system which generated this result tra nsmitted reference range : <=0.2. The reference r kat was not used to int erpret this result as normal/abnormal . [facility] HospitalUlfwjexMSZDLXMYXC8437-43-21 22:53:19 Test Item Value Reference Range Interpretation Comments RBC (test code = RBC) 5.23 4.20-5.40 [facility] HospitalSunfcuoAXLUFAICOA2037-63-61 22:53:19 Test Item Value Reference Range Interpretation Comments Platelet (test code = Platelet) 241 133-450 [facility] HospitalHjudvutXJYEHCFYNB0782-17-47 22:53:19 Test Item Value Reference Range Interpretation Comments MPV (test code = MPV) 9.3 7.4-10.4 [facility] HospitalTedkhbhYFXPLSFCYN8903-28-53 22:53:19 Test Item Value Reference Range Interpretation Comments RDW (test code = RDW) 16.5 11.5-14.5 [facility] HospitalOtkrrsaMVQCHKBXLL8370-68-17 22:53:19 Test Item Value Reference Range Interpretation Comments Hct (test code = Hct) 41.0 36.0-48.0 [facility] HospitalBmchqzkQQBQGYNMXM6710-44-94 22:53:19 Test Item Value Reference Range Interpretation Comments Hgb (test code = Hgb) 12.7 12.0-16.0 [facility] HospitalLbvtjzdLEZKTKXSLI3638-95-53 22:53:19 Test Item Value Reference Range Interpretation Comments WBC (test code = WBC) 11.5 3.7-10.4 [facility] HospitalRbkfreuUHOXRFLFEX3228-81-78 22:53:19 Test Item Value Reference Range Interpretation Comments MCH (test code = MCH) 24.3 pg 27.0-31.0 [facility] HospitalYluayufBQDCFJFCLV3255-15-37 22:53:19 Test Item Value Reference Range Interpretation Comments MCHC (test code = MCHC) 31.0 32.0-36.0 [facility] HospitalOxnsdnnDQHVHCSQYJ2541-01-80 22:53:19 Test Item Value Reference Range Interpretation Comments MCV (test code = MCV) 78.4 80.0-98.0 [facility] MYWZD9438[facility] 22:53:19 Test Item Value Reference Range Interpretation Comments FTI (test code = FTI) 2.5 [facility] ZJEPR0019-38-17 22:53:19 Test Item Value Reference Range Interpretation Comments TSH (test code = TSH) 1.540 0.360-3.740 [facility] MUKRB3753-39-53 22:53:19 Test Item Value Reference Range Interpretation Comments T3 Uptake (test code = T3 Uptake) 31 31-39 [facility] OCORN0190-54-20 22:53:19 Test Item Value Reference Range Interpretation Comments T4 (test code = T4) 8.0 4.7-13.3 [facility]2015-10-09 22:53:19 Test Item Value Reference Range Interpretation Comments Transferrin (test code = Transferrin) 256 212-360 [facility]2015-10-09 22:53:19 Test Item Value Reference Range Interpretation Comments Vitamin B12 Lvl (test code = Vitamin [phone] B12 Lvl) [facility]2015-10-09 22:53:19 Test Item Value Reference Range Interpretation Comments eGFR (test code = eGFR) 70 [facility]2015-10-09 22:53:19 Test Item Value Reference Range Interpretation Comments Glucose Lvl (test code = Glucose Lvl) 103 70-99 [facility]2015-10-09 22:53:19 Test Item Value Reference Range Interpretation Comments Albumin Lvl (test code = Albumin Lvl) 3.6 3.5-5.0 [facility]2015-10-09 22:53:19 Test Item Value Reference Range Interpretation Comments CO2 (test code = CO2) 24 24-32 [facility]2015-10-09 22:53:19 Test Item Value Reference Range Interpretation Comments Total Protein (test code = Total 7.2 6.4-8.4 Protein) [facility]2015-10-09 22:53:19 Test Item Value Reference Range Interpretation Comments Creatinine Lvl (test code = Creatinine 1.1 0.5-1.4 Lvl) [facility]2015-10-09 22:53:19 Test Item Value Reference Range Interpretation Comments BUN (test code = BUN) 14 7-22 [facility]2015-10-09 22:53:19 Test Item Value Reference Range Interpretation Comments AST (test code = AST) 12 See_Comment [Auto mated message] The system which ge nerated this result transmit arvind reference range : <=37. The reference range was not used to interpr et this result as mario l/abnormal. [facility]2015-10-09 22:53:19 Test Item Value Reference Range Interpretation Comments ALT (test code = ALT) 41 See_Comment [Auto mated message] The system which ge nerated this result transmit arvind reference range : <=65. The reference range was not used to interpr et this result as mario l/abnormal. [facility]2015-10-09 22:53:19 Test Item Value Reference Range Interpretation Comments Alk Phos (test code = Alk Phos) 100 39-136 [facility]2015-10-09 22:53:19 Test Item Value Reference Range Interpretation Comments Bili Total (test code = Bili Total) 0.2 0.2-1.3 [facility]2015-10-09 22:53:19 Test Item Value Reference Range Interpretation Comments Potassium Lvl (test code = Potassium 3.9 3.5-5.1 Lvl) [facility]2015-10-09 22:53:19 Test Item Value Reference Range Interpretation Comments Sodium Lvl (test code = Sodium Lvl) 141 135-145 [facility]2015-10-09 22:53:19 Test Item Value Reference Range Interpretation Comments Calcium Lvl (test code = Calcium Lvl) 9.0 8.5-10.5 [facility]2015-10-09 22:53:19 Test Item Value Reference Range Interpretation Comments Chloride Lvl (test code = Chloride Lvl) 109 95-109 [facility]2015-10-09 22:53:19 Test Item Value Reference Range Interpretation Comments AGAP (test code = AGAP) 11.9 10.0-20.0 [facility]2015-10-09 22:53:19 Test Item Value Reference Range Interpretation Comments A/G Ratio (test code = A/G Ratio) 1.0 0.7-1.6 [facility]2015-10-09 22:53:19 Test Item Value Reference Range Interpretation Comments B/C Ratio (test code = B/C Ratio) 13 6-25 [facility]2015-10-09 22:53:19 Test Item Value Reference Range Interpretation Comments Globulin (test code = Globulin) 3.6 2.0-4.0 [facility]2015-10-09 22:53:19 Test Item Value Reference Range Interpretation Comments Magnesium Lvl (test code = Magnesium 1.8 1.8-2.4 Lvl) [facility] HospitalSbtdrzlXEOPYPIAMG2200-88-52 22:53:19 Test Item Value Reference Range Interpretation Comments Segs (test code = Segs) 57.5 45.0-75.0 [facility] HospitalKudxlxuSEEADYSGIL7166-12-21 22:53:19 Test Item Value Reference Range Interpretation Comments Monocytes (test code = Monocytes) 7.6 2.0-12.0 [facility] HospitalYkbeckbHQNYUASMXS3660-66-63 22:53:19 Test Item Value Reference Range Interpretation Comments Basophils (test code = 1.0 See_Comment [Aut omated message] The Basophils) system which ge nerated this result tra nsmitted reference range : <=1.0. The reference r kat was not used to int erpret this result as normal/abnormal . [facility] HospitalWnftqgqQNDREHIISV5546-23-14 22:53:19 Test Item Value Reference Range Interpretation Comments Lymphocytes (test code = Lymphocytes) 32.9 20.0-40.0 [facility] HospitalYwmmyotRSQSGCMDAO4176-43-52 22:53:19 Test Item Value Reference Range Interpretation Comments Eosinophils (test code = 1.0 See_Comment [A utomated message] The Eosinophils) system which ge nerated this result tra nsmitted reference range : <=4.0. The reference r kat was not used to int erpret this result as normal/abnormal . [facility] HospitalPbtiokqLIYKMJGUFB6448-65-57 22:53:19 Test Item Value Reference Range Interpretation Comments Lymphocytes # (test code = Lymphocytes 3.8 1.0-5.5 #) [facility] HospitalPwtvxlkMWTOUWXCRN0488-58-84 22:53:19 Test Item Value Reference Range Interpretation Comments Segs-Bands # (test code = Segs-Bands #) 6.6 1.5-8.1 [facility] HospitalRzutdgiBLFKYPUZAY3347-85-29 22:53:19 Test Item Value Reference Range Interpretation Comments Eosinophils # (test code 0.1 See_Comment [A utomated message] The = Eosinophils #) system whic h generated this result tra nsmitted reference range : <=0.5. The reference r kat was not used to int erpret this result as normal/abnormal . [facility] HospitalXhwgqmuECXLTKUYMC1479-33-44 22:53:19 Test Item Value Reference Range Interpretation Comments Monocytes # (test code 0.9 See_Comment [Aut omated message] The = Monocytes #) system which generated this result tra nsmitted reference range : <=0.8. The reference r kat was not used to int erpret this result as normal/abnormal . [facility] HospitalEceinxiTKBVIYZDXF7609-65-15 22:53:19 Test Item Value Reference Range Interpretation Comments Microcyte (test code = 1+ *ABN*(06/07/15 Microcyte) 5:53 PM) [facility] HospitalZejkdgyTCCUPXXINE6060-32-54 22:53:19 Test Item Value Reference Range Interpretation Comments Basophils # (test code 0.1 See_Comment [Aut omated message] The = Basophils #) system which generated this result tra nsmitted reference range : <=0.2. The reference r kat was not used to int erpret this result as normal/abnormal . [facility] HospitalAqtaehrFACVFVDRPK3532-82-31 22:53:19 Test Item Value Reference Range Interpretation Comments RBC (test code = RBC) 5.23 4.20-5.40 [facility] HospitalGhcpoktPGHXCPKMHU9884-27-84 22:53:19 Test Item Value Reference Range Interpretation Comments Platelet (test code = Platelet) 241 133-450 [facility] HospitalPmgbttiMCLVEYVXKD4881-18-27 22:53:19 Test Item Value Reference Range Interpretation Comments MPV (test code = MPV) 9.3 7.4-10.4 [facility] HospitalFvtapsfFCZUKGUYUD1725-57-58 22:53:19 Test Item Value Reference Range Interpretation Comments RDW (test code = RDW) 16.5 11.5-14.5 [facility] HospitalLswpfyjSIKSBDPYQH5170-83-28 22:53:19 Test Item Value Reference Range Interpretation Comments Hct (test code = Hct) 41.0 36.0-48.0 [facility] HospitalFifzbxlRIIXHOFUMD0277-77-78 22:53:19 Test Item Value Reference Range Interpretation Comments Hgb (test code = Hgb) 12.7 12.0-16.0 [facility] HospitalOtzfewrFDPUEFQNIY8172-02-68 22:53:19 Test Item Value Reference Range Interpretation Comments WBC (test code = WBC) 11.5 3.7-10.4 [facility] HospitalBedwstrJHYGQWXKDW6304-57-93 22:53:19 Test Item Value Reference Range Interpretation Comments MCH (test code = MCH) 24.3 pg 27.0-31.0 [facility] HospitalGzaffguKJZYFHLVIG9342-20-92 22:53:19 Test Item Value Reference Range Interpretation Comments MCHC (test code = MCHC) 31.0 32.0-36.0 [facility]AanybdtJGFWBKQFHW1970-94-78 22:53:19 Test Item Value Reference Range Interpretation Comments MCV (test code = MCV) 78.4 80.0-98.0 [facility]2015-10-09 22:53:19 Test Item Value Reference Range Interpretation Comments FTI (test code = FTI) 2.5 [facility]2015-10-09 22:53:19 Test Item Value Reference Range Interpretation Comments TSH (test code = TSH) 1.540 0.360-3.740 [facility]2015-10-09 22:53:19 Test Item Value Reference Range Interpretation Comments T3 Uptake (test code = T3 Uptake) 31 31-39 [facility]2015-10-09 22:53:19 Test Item Value Reference Range Interpretation Comments T4 (test code = T4) 8.0 4.7-13.3 [facility]2015-10-09 22:53:19 Test Item Value Reference Range Interpretation Comments Transferrin (test code = Transferrin) 256 212-360 [facility]2015-10-09 22:53:19 Test Item Value Reference Range Interpretation Comments Vitamin B12 Lvl (test code = Vitamin [phone] B12 Lvl) [facility]2015-10-09 22:53:19 Test Item Value Reference Range Interpretation Comments eGFR (test code = eGFR) 70 [facility]2015-10-09 22:53:19 Test Item Value Reference Range Interpretation Comments Glucose Lvl (test code = Glucose Lvl) 103 70-99 [facility]2015-10-09 22:53:19 Test Item Value Reference Range Interpretation Comments Albumin Lvl (test code = Albumin Lvl) 3.6 3.5-5.0 [facility]2015-10-09 22:53:19 Test Item Value Reference Range Interpretation Comments CO2 (test code = CO2) 24 24-32 [facility]2015-10-09 22:53:19 Test Item Value Reference Range Interpretation Comments Total Protein (test code = Total 7.2 6.4-8.4 Protein) [facility]2015-10-09 22:53:19 Test Item Value Reference Range Interpretation Comments Creatinine Lvl (test code = Creatinine 1.1 0.5-1.4 Lvl) [facility]2015-10-09 22:53:19 Test Item Value Reference Range Interpretation Comments BUN (test code = BUN) 14 7-22 [facility]2015-10-09 22:53:19 Test Item Value Reference Range Interpretation Comments AST (test code = AST) 12 See_Comment [Auto mated message] The system which ge nerated this result transmit arvind reference range : <=37. The reference range was not used to interpr et this result as mario l/abnormal. [facility]2015-10-09 22:53:19 Test Item Value Reference Range Interpretation Comments ALT (test code = ALT) 41 See_Comment [Auto mated message] The system which ge nerated this result transmit arvind reference range : <=65. The reference range was not used to interpr et this result as mario l/abnormal. [facility]2015-10-09 22:53:19 Test Item Value Reference Range Interpretation Comments Alk Phos (test code = Alk Phos) 100 39-136 [facility]2015-10-09 22:53:19 Test Item Value Reference Range Interpretation Comments Bili Total (test code = Bili Total) 0.2 0.2-1.3 [facility]2015-10-09 22:53:19 Test Item Value Reference Range Interpretation Comments Potassium Lvl (test code = Potassium 3.9 3.5-5.1 Lvl) [facility]2015-10-09 22:53:19 Test Item Value Reference Range Interpretation Comments Sodium Lvl (test code = Sodium Lvl) 141 135-145 [facility]2015-10-09 22:53:19 Test Item Value Reference Range Interpretation Comments Calcium Lvl (test code = Calcium Lvl) 9.0 8.5-10.5 [facility]2015-10-09 22:53:19 Test Item Value Reference Range Interpretation Comments Chloride Lvl (test code = Chloride Lvl) 109 95-109 [facility]2015-10-09 22:53:19 Test Item Value Reference Range Interpretation Comments AGAP (test code = AGAP) 11.9 10.0-20.0 [facility]2015-10-09 22:53:19 Test Item Value Reference Range Interpretation Comments A/G Ratio (test code = A/G Ratio) 1.0 0.7-1.6 [facility]2015-10-09 22:53:19 Test Item Value Reference Range Interpretation Comments Transferrin (test code = Transferrin) 256 212-360 [facility]2015-10-09 22:53:19 Test Item Value Reference Range Interpretation Comments Vitamin B12 Lvl (test code = Vitamin 369 467-1734 B12 Lvl) [facility]2015-10-09 22:53:19 Test Item Value Reference Range Interpretation Comments eGFR (test code = eGFR) 70 [facility]2015-10-09 22:53:19 Test Item Value Reference Range Interpretation Comments Glucose Lvl (test code = Glucose Lvl) 103 70-99 [facility]2015-10-09 22:53:19 Test Item Value Reference Range Interpretation Comments Albumin Lvl (test code = Albumin Lvl) 3.6 3.5-5.0 [facility]2015-10-09 22:53:19 Test Item Value Reference Range Interpretation Comments CO2 (test code = CO2) 24 24-32 [facility]2015-10-09 22:53:19 Test Item Value Reference Range Interpretation Comments Total Protein (test code = Total 7.2 6.4-8.4 Protein) [facility]2015-10-09 22:53:19 Test Item Value Reference Range Interpretation Comments Creatinine Lvl (test code = Creatinine 1.1 0.5-1.4 Lvl) [facility]2015-10-09 22:53:19 Test Item Value Reference Range Interpretation Comments BUN (test code = BUN) 14 7-22 [facility]2015-10-09 22:53:19 Test Item Value Reference Range Interpretation Comments AST (test code = AST) 12 See_Comment [Auto mated message] The system which ge nerated this result transmit arvind reference range : <=37. The reference range was not used to interpr et this result as mario l/abnormal. [facility]2015-10-09 22:53:19 Test Item Value Reference Range Interpretation Comments ALT (test code = ALT) 41 See_Comment [Auto mated message] The system which ge nerated this result transmit arvind reference range : <=65. The reference range was not used to interpr et this result as mario l/abnormal. [facility]2015-10-09 22:53:19 Test Item Value Reference Range Interpretation Comments Alk Phos (test code = Alk Phos) 100 39-136 [facility]2015-10-09 22:53:19 Test Item Value Reference Range Interpretation Comments Bili Total (test code = Bili Total) 0.2 0.2-1.3 [facility]2015-10-09 22:53:19 Test Item Value Reference Range Interpretation Comments Potassium Lvl (test code = Potassium 3.9 3.5-5.1 Lvl) [facility]2015-10-09 22:53:19 Test Item Value Reference Range Interpretation Comments Sodium Lvl (test code = Sodium Lvl) 141 135-145 [facility]2015-10-09 22:53:19 Test Item Value Reference Range Interpretation Comments Calcium Lvl (test code = Calcium Lvl) 9.0 8.5-10.5 [facility]2015-10-09 22:53:19 Test Item Value Reference Range Interpretation Comments Chloride Lvl (test code = Chloride Lvl) 109 95-109 [facility]2015-10-09 22:53:19 Test Item Value Reference Range Interpretation Comments AGAP (test code = AGAP) 11.9 10.0-20.0 [facility]2015-10-09 22:53:19 Test Item Value Reference Range Interpretation Comments A/G Ratio (test code = A/G Ratio) 1.0 0.7-1.6 [facility]2015-10-09 22:53:19 Test Item Value Reference Range Interpretation Comments B/C Ratio (test code = B/C Ratio) 13 6-25 [facility]2015-10-09 22:53:19 Test Item Value Reference Range Interpretation Comments Globulin (test code = Globulin) 3.6 2.0-4.0 [facility]2015-10-09 22:53:19 Test Item Value Reference Range Interpretation Comments Magnesium Lvl (test code = Magnesium 1.8 1.8-2.4 Lvl) [facility] 22:53:19 Test Item Value Reference Range Interpretation Comments Segs (test code = Segs) 57.5 45.0-75.0 [facility]AhxeswpKUGYZRMBYU7105-66-60 22:53:19 Test Item Value Reference Range Interpretation Comments Monocytes (test code = Monocytes) 7.6 2.0-12.0 [facility]OtxeeitGUVWDQTRIR2867-83-96 22:53:19 Test Item Value Reference Range Interpretation Comments Basophils (test code = 1.0 See_Comment [Aut omated message] The Basophils) system which ge nerated this result tra nsmitted reference range : <=1.0. The reference r kat was not used to int erpret this result as normal/abnormal . [facility]CgwaoeqRYCFMSZEAX0983-48-01 22:53:19 Test Item Value Reference Range Interpretation Comments Lymphocytes (test code = Lymphocytes) 32.9 20.0-40.0 [facility]RocpgcdDFIHUNVIOC3008-38-20 22:53:19 Test Item Value Reference Range Interpretation Comments Eosinophils (test code = 1.0 See_Comment [A utomated message] The Eosinophils) system which ge nerated this result tra nsmitted reference range : <=4.0. The reference r kat was not used to int erpret this result as normal/abnormal . [facility]MuidrcbAYBGLBUPLS2168-75-84 22:53:19 Test Item Value Reference Range Interpretation Comments Lymphocytes # (test code = Lymphocytes 3.8 1.0-5.5 #) [facility]IajyflmKUJZADVHIX2308-73-44 22:53:19 Test Item Value Reference Range Interpretation Comments Segs-Bands # (test code = Segs-Bands #) 6.6 1.5-8.1 [facility] HospitalGxfnmldRKFYVUNCEJ9268-95-23 22:53:19 Test Item Value Reference Range Interpretation Comments Eosinophils # (test code 0.1 See_Comment [A utomated message] The = Eosinophils #) system whic h generated this result tra nsmitted reference range : <=0.5. The reference r kat was not used to int erpret this result as normal/abnormal . [facility] HospitalDxbcdhyJOGSQJGPZG5156-70-37 22:53:19 Test Item Value Reference Range Interpretation Comments Monocytes # (test code 0.9 See_Comment [Aut omated message] The = Monocytes #) system which generated this result tra nsmitted reference range : <=0.8. The reference r kat was not used to int erpret this result as normal/abnormal . [facility] HospitalIzmdzxxHSZIQJCMHR8932-26-15 22:53:19 Test Item Value Reference Range Interpretation Comments Microcyte (test code = 1+ *ABN*(06/07/15 Microcyte) 5:53 PM) [facility] HospitalCurvclpWWCZNQDEAR2524-85-65 22:53:19 Test Item Value Reference Range Interpretation Comments Basophils # (test code 0.1 See_Comment [Aut omated message] The = Basophils #) system which generated this result tra nsmitted reference range : <=0.2. The reference r kat was not used to int erpret this result as normal/abnormal . [facility] HospitalMvyxyubOHKQNUZIBR5361-55-28 22:53:19 Test Item Value Reference Range Interpretation Comments RBC (test code = RBC) 5.23 4.20-5.40 [facility] HospitalNxlyovkPLFTADMRTN0215-31-72 22:53:19 Test Item Value Reference Range Interpretation Comments Platelet (test code = Platelet) 241 133-450 [facility] HospitalOlrncmsCIEKGZZIBW5523-28-50 22:53:19 Test Item Value Reference Range Interpretation Comments MPV (test code = MPV) 9.3 7.4-10.4 [facility] HospitalVfymmmqRAGIQIDLQC3814-13-63 22:53:19 Test Item Value Reference Range Interpretation Comments RDW (test code = RDW) 16.5 11.5-14.5 [facility] HospitalSobqnguFCBZFKUOLC5732-60-22 22:53:19 Test Item Value Reference Range Interpretation Comments Hct (test code = Hct) 41.0 36.0-48.0 [facility] HospitalHcakoleJDVDETNTFH9538-34-65 22:53:19 Test Item Value Reference Range Interpretation Comments Hgb (test code = Hgb) 12.7 12.0-16.0 [facility] HospitalUeobqbdMFTHRBFENM9407-73-74 22:53:19 Test Item Value Reference Range Interpretation Comments WBC (test code = WBC) 11.5 3.7-10.4 [facility] HospitalFgqwcznGNRHAQUOUG0456-17-48 22:53:19 Test Item Value Reference Range Interpretation Comments MCH (test code = MCH) 24.3 pg 27.0-31.0 [facility] HospitalBtneggzKIIUIFPZJA8190-40-76 22:53:19 Test Item Value Reference Range Interpretation Comments MCHC (test code = MCHC) 31.0 32.0-36.0 [facility] HospitalWqicyfsZSDNCHSMGM6752-81-69 22:53:19 Test Item Value Reference Range Interpretation Comments MCV (test code = MCV) 78.4 80.0-98.0 [id number] 22:53:19 Test Item Value Reference Range Interpretation Comments FTI (test code = FTI) 2.5 [facility] [id number] 22:53:19 Test Item Value Reference Range Interpretation Comments TSH (test code = TSH) 1.540 0.360-3.740 [facility] [id number] 22:53:19 Test Item Value Reference Range Interpretation Comments T3 Uptake (test code = T3 Uptake) 31 31-39 [facility] [id number] 22:53:19 Test Item Value Reference Range Interpretation Comments T4 (test code = T4) 8.0 4.7-13.3 [facility]
[2023-01-16] MEDS ORDERED: KETOROLAC 30 MG/ML INJ ONE
--- NOTE | 2023-01-16 02:25 | ER ---
Nurse's Notes [facility] Name: Kyra Quispe Age: 32 yrs Sex: Female : 1990 Arrival Date: 01/15/2023 Time: 23:10 Bed 16 Private MD: Diagnosis: Lower abdominal pain, unspecified Presentation: 01/15 23:32 Chief complaint: Patient states: I was discharged from here this morning with an kd3 ovarian cyst and the pain has just gotten worse. Its causing me to loose my breath. Coronavirus screen: Vaccine status: Patient reports being unvaccinated. Ebola Screen: No symptoms or risks identified at this time. Initial Sepsis Screen: Does the patient meet any 2 criteria? No. Patient's initial sepsis screen is negative. Does the patient have a suspected source of infection? No. Patient's initial sepsis screen is negative. Risk Assessment: Do you want to hurt yourself or someone else? Patient reports no desire to harm self or others. Onset of symptoms was January 15, 2023. 23:32 Method Of Arrival: Ambulatory kd3 23:32 Acuity: MONE 3 kd3 Triage Assessment: 23:33 General: Appears uncomfortable, Behavior is calm, cooperative. Pain: Complains of pain kd3 in abdomen. GI: Reports lower abdominal pain. Historical: - Allergies: 23:33 Latex, Natural Rubber; kd3 23:33 Tessalon Perles; kd3 - Home Meds: 23:33 Hydroxyzine Oral [Active]; Keppra Oral [Active]; Novolin 70/30 [place] Sub-Q [Active]; kd3 Zoloft Oral 100 mg daily [Active]; - PMHx: 23:33 Anxiety; diabetes mellitus; Ovarian cyst; Seizure; kd3 - PSHx: 23:33 Cholecystectomy; gastric sleeve; knee; kd3 - Immunization history:: Adult Immunizations up to date. - Social history:: Smoking status: Patient denies any tobacco usage or history of. Screenin:50 [facility] ED Fall Risk Assessment (Adult) History of falling in the last 3 months, ha1 including since admission No falls in past 3 months (0 pts) Confusion or Disorientation No (0 pts) Intoxicated or Sedated No (0 pts) Score/Fall Risk Level 0 - 2 = Low Risk Oriented to surroundings, Maintained a safe environment, Educated pt \T\ family on fall prevention, incl call for assistance when getting out of bed. 01/16 00:33 Abuse screen: Denies threats or abuse. Denies injuries from another. Nutritional ha1 screening: No deficits noted. Tuberculosis screening: No symptoms or risk factors identified. Assessment: 01/15 23:25 General: Appears comfortable, Behavior is calm, cooperative. Pain: Complains of pain in ha1 abdomen Pain does not radiate. Pain currently is 8 out of 10 on a pain scale. Alleviated by medications. Neuro: Level of Consciousness is awake, alert, obeys commands, Oriented to person, place, time, situation. Cardiovascular: Patient's skin is warm and dry. Respiratory: Airway is patent Respiratory effort is even, unlabored, Respiratory pattern is regular, symmetrical. 23:25 GI: Bowel sounds present X 4 quads. Abd is soft and non tender X 4 quads. ha1 01/16 00:24 Reassessment: Patient and/or family updated on plan of care and expected duration. Pain ha1 level reassessed. Patient is alert, oriented x 3, equal unlabored respirations, skin warm/dry/pink. going to CT. 01:30 Reassessment: Patient and/or family updated on plan of care and expected duration. Pain ha1 level reassessed. Patient is alert, oriented x 3, equal unlabored respirations, skin warm/dry/pink. 02:30 Reassessment: Patient and/or family updated on plan of care and expected duration. Pain ha1 level reassessed. Patient is alert, oriented x 3, equal unlabored respirations, skin warm/dry/pink. Vital Signs: 01/15 23:32 BP 125 / 86; Pulse 64; Resp 19; Temp 98.2(O); Pulse Ox 100% on R/A; Weight 141.97 kg; kd3 Height 5 ft. 7 in. ; 01/16 00:15 BP 123 / 90; Pulse 71; Resp 18 S; Pulse Ox 100% on R/A; ha1 02:15 BP 122 / 85; Pulse 72; Resp 18 S; Pulse Ox 99% ; ha1 01/15 23:32 Body Mass Index 49.02 (141.97 kg, 170.18 cm) kd3 ED Course: 01/15 23:12 Patient arrived in ED. ag3 23:25 Patient has correct armband on for positive identification. Bed in low position. Call ha1 light in reach. Side rails up X 1. 23:28 Rahat Richmond MD is Attending Physician. bs3 23:31 Riana Cardona, RN is Primary Nurse. kd3 23:33 Triage completed. kd3 23:33 Arm band placed on. kd3 01/16 00:00 Inserted saline lock: 22 gauge in left forearm, using aseptic technique. ha1 00:53 CT Abd/Pelvis - IV Contrast Only In Process Unspecified. EDMS 02:36 No provider procedures requiring assistance completed. IV discontinued, intact, ha1 bleeding controlled, No redness/swelling at site. Pressure dressing applied. Administered Medications: 01/15 23:50 Drug: Ketorolac IVP 30 mg {Note: given IM. Right ventral gluteal .} Route: IVP; Site: ha1 Other; 01/16 00:15 Follow up: Response: No adverse reaction; Pain is decreased ha1 Medication: 02:37 VIS not applicable for this client. ha1 Outcome: 02:24 Discharge ordered by . bs3 02:45 Discharged to home ambulatory. ha1 02:45 Condition: stable 02:45 Discharge instructions given to patient, Instructed on discharge instructions, follow up and referral plans. Demonstrated understanding of instructions, follow-up care. 02:49 Patient left the ED. ha1 Signatures: Dispatcher [employer] EDAK Soila Arreguin 3 Riana Cardona, RN RN kd3 Bessy Brian RN RN ha1 Rahat Richmond MD MD bs3
--- NOTE | 2023-01-16 02:25 | EDPHYS ---
Physician Documentation [facility] Name: Kyra Quispe Age: 32 yrs Sex: Female : 1990 Arrival Date: 01/15/2023 Time: 23:10 Bed 16 Private MD: ED Physician Rahat Richmond HPI: 01/16 00:25 This 32 yrs old Female presents to ER via Ambulatory with complaints of bs3 Abdominal Pain. 00:25 32-year-old female hx of ovarian cyst, morbid obesity seen in the last 24 hours here bs3 for left lower abdominal pain presents with persistent symptoms she notes that symptoms have been intermittent for months over they have been chronic for the last 5 days they are partially relieved by the Toradol that she received earlier but even when she left she still had pain she states she has a known cyst there that was supposed to be removed however she never followed up with she denies fevers chills she denies any urinary symptoms denies any chest pain shortness of breath numbness tingling or weakness in her extremities. Historical: - Allergies: 01/15 23:33 Latex, Natural Rubber; kd3 23:33 Tessalon Perles; kd3 - Home Meds: 23:33 Hydroxyzine Oral [Active]; Keppra Oral [Active]; Novolin 70/30 [place] Sub-Q [Active]; kd3 Zoloft Oral 100 mg daily [Active]; - PMHx: 23:33 Anxiety; diabetes mellitus; Ovarian cyst; Seizure; kd3 - PSHx: 23:33 Cholecystectomy; gastric sleeve; knee; kd3 - Immunization history:: Adult Immunizations up to date. - Social history:: Smoking status: Patient denies any tobacco usage or history of. ROS: 01/16 00:25 Constitutional: Negative for fever, chills bs3 All other systems are negative. Exam: 00:25 Constitutional: This is a well developed, well nourished patient who is awake, alert, bs3 and in no acute distress. Head/Face: Normocephalic, atraumatic. Eyes: Pupils equal round and reactive to light, extra-ocular motions intact. Lids and lashes normal. ENT: mmm, no posterior phyarngeal erythema Neck: Trachea midline, no thyromegaly, no neck stiffness Chest/axilla: Normal chest wall appearance and motion. Nontender with no deformity. No lesions are appreciated. Cardiovascular: Regular rate and rhythm with a normal S1 and S2. symmetric pulses in upper extremities Respiratory: Lungs have equal breath sounds bilaterally, clear to auscultation, no respiratory distress Abdomen/GI: Soft, non-tender, no rebound or guarding Skin: Warm, dry with normal turgor. Normal color with no rashes, no lesions, and no evidence of cellulitis. MS/ Extremity: Pulses equal, no cyanosis. Neurovascular intact. Full, normal range of motion. Neuro: Awake and alert, GCS 15, oriented to person, place, time, and situation. Cranial nerves II-XII grossly intact. Motor strength 5/5 in all extremities. Sensory grossly intact. Psych: Awake, alert, with orientation to person, place and time. Behavior, mood, and affect are within normal limits. Vital Signs: 01/15 23:32 BP 125 / 86; Pulse 64; Resp 19; Temp 98.2(O); Pulse Ox 100% on R/A; Weight 141.97 kg; kd3 Height 5 ft. 7 in. ; 01/16 00:15 BP 123 / 90; Pulse 71; Resp 18 S; Pulse Ox 100% on R/A; ha1 02:15 BP 122 / 85; Pulse 72; Resp 18 S; Pulse Ox 99% ; ha1 01/15 23:32 Body Mass Index 49.02 (141.97 kg, 170.18 cm) kd3 MDM: 01/15 23:28 Patient medically screened. bs3 01/16 00:25 Data reviewed: vital signs, nurses notes. ED course: I reviewed her prior ultrasound bs3 and given symptom duration of 5 days and more than this in general her symptoms are not consistent with an ovarian torsion we could have missed other pathology although I do think this is less likely she may have a cyst that has been unresponsive to medical management and needs outpatient follow-up for removal we will treat pain. 02:23 ED course: Patient with persistent abdominal pain I reviewed her work-up from earlier bs3 which was nondiagnostic for the etiology of her pain therefore we decided to do CT after shared decision-making conversation the CT was nondiagnostic advised outpatient follow-up with [facility] patient attempted to follow-up with the MANAGER [facility] who we provided but they do not take her insurance patient was advised to follow-up with the [facility] group. 01/15 23:45 Order name: CT Abd/Pelvis - IV Contrast Only bs3 Administered Medications: 01/15 23:50 Drug: Ketorolac IVP 30 mg {Note: given IM. Right ventral gluteal .} Route: IVP; Site: [facility] Other; 01/16 00:15 Follow up: Response: No adverse reaction; Pain is decreased ha1 Disposition Summary: 01/16/23 02:24 Discharge Ordered Location: Home bs3 Problem: new bs3 Symptoms: have improved bs3 Condition: Stable bs3 Diagnosis - Lower abdominal pain, unspecified bs3 Followup: bs3 - With: Private Physician - When: 2 - 3 days - Reason: Re-evaluation by your physician Discharge Instructions: - Discharge Summary Sheet bs3 - Abdominal Pain, Adult, [place] bs3 Forms: - Work release form ha1 - Medication Reconciliation Form bs3 - Thank You Letter bs3 - Antibiotic Education bs3 - Prescription Opioid Use bs3 Signatures: Dispatcher [employer] Riana Guerrero RN RN kd3 Bessy Brian RN RN ha1 Rahat Richmond MD MD bs3 Corrections: (The following items were deleted from the chart) 00:26 00:25 32-year-old female seen in the last 24 hours here for left lower abdominal pain bs3 presents with persistent symptoms she notes that symptoms have been intermittent for months over they have been chronic for the last 5 days they are partially relieved by the Toradol that she received earlier but even when she left she still had pain she states she has a known cyst there that was supposed to be removed however she never followed up with she denies fevers chills she denies any urinary symptoms denies any chest pain shortness of breath numbness tingling or weakness in her extremities. bs3
[2023-01-16 02:54] VITALS: TEMP 98.2
[2023-01-16 02:58] VITALS: BP 122/85; O2SAT 99
--- NOTE | 2023-01-16 19:08 | RAD REPORT ---
EXAM DESCRIPTION: CT - Abdomen Pelvis W Contrast - 01/16/2023 6:00 am CLINICAL HISTORY: The patient is 32 years old and is Female; LOWER ABD PAIN TECHNIQUE: Axial computed tomography images of the abdomen and pelvis with intravenous contrast. S agittal and coronal reformatted images were created and reviewed. This CT exam was performed using one or more of the following dose reduction techniques: automated exposure control, adjustment of t he mA and/or kV according to patient size, and/or use of iterative reconstruction technique. COMPARISON: No relevant prior studies available. FINDINGS: Lung bases: Unremarkable. No mass. No consolidation. Mediastinum: Small hiatal hernia. ABDOMEN: Liver: Hepatomegaly. Gallbladder and bile ducts: Gallbladder is surgically absent. No ductal dilation. Pancreas: Unremarkable. No mass. No ductal dilation. Spleen: Unremarkable. No splenomegaly. Adrenals: Unremarkable. No mass. Kidneys and ureters: Unremarkable. No solid mass. No hydronephrosis. Stomach and bowel: Postsurgical changes in the stomach. No obstruction. No mucosal thickening. PELVIS: Appendix: No findings to suggest acute appendicitis. Bladder: Unremarkable. Reproductive: Unremarkable as visualized. ABDOMEN and PELVIS: Intraperitoneal space: Unremarkable. No free air. No significant fluid collection. Bones/joints: Sacral screws through the left sacroiliac joint. Unfused left transverse process at L4. No acute fracture. No dislocation. Soft tissues: Unremarkable. Vasculature: Unremarkable. No abdominal aortic aneurysm. Lymph nodes: Unremarkable. No enlarged lymph nodes. IMPRESSION: No acute finding in the abdomen/pelvis. Electronically signed by: Buddy Bird MD 01/16/2023 1:23 AM CDT Due to temporary technical issues with the PACS/Fluency reporting system, reports are being signed by the in house radiologists without review as a courtesy to insure prompt reporting. The interpreting radiologist is fully responsible for the content of the report.
== END 2023-01-16 02:49 | disposition home or self-care (01) ==
LOC: ER 23:10
DX: R10.32 Left lower quadrant pain (principal); Z88.8 Allergy status to other drugs, medicaments and biological substances; Z91.040 Latex allergy status; Z91.048 Other nonmedicinal substance allergy status
CPT/HCPCS: 74177; Q9967

== ENCOUNTER 2023-01-21 15:15 | Emergency (ER) | payer OTHER ==
[2023-01-21] MEDS ORDERED: NA CHLORIDE 0.9% 1,000 ML ONE (15:43)
[2023-01-21 16:05] LABS: Absolute Lymphocytes (CBC) 2.5 K/uL (0.7-4.9); MCV 76.8 fL (80-100); MPV 9.1 fL (7.6-11.3); RBC Red Blood Cell Count 4.94 M/uL (3.86-4.86)
--- OUTSIDE RECORDS SUMMARY | 2023-01-21 16:12 | XMS REPORT | Continuity of Care Document ---
:1990 Author Organization [facility] [place] [facility] t Address [address] [facility]. [address] [place] [address] Care Team Providers Name Role Phone FAWAD ALDRICH Primary Care Physician Unavailable RADIOLOGY Attending Clinician Unavailable FAWAD ALDRICH Attending Clinician Unavailable Fawad Cope Attending Clinician DOUG HAMMER Attending Clinician Unavailable Doug Gamble Attending Clinician PAM COLE Attending Clinician Unavailable Anahi Hoang MD Attending Clinician DA CHAPIN Attending Clinician Unavailable GC_SWHANBWH_Diggs_R Attending Clinician Unavailable JENNY FLETCHER Attending Clinician Unavailable BRIE GALVAN Attending Clinician Unavailable Kaycee Longo Attending Clinician [phone] LEYLA GALVAN Attending Clinician Unavailable Thania Barrera Attending Clinician THANIA BARRERA Attending Clinician Unavailable Sukhwinder Thomas Attending Clinician SUKHWINDER THOMAS Attending Clinician Unavailable AMBREEN_FLETCHERA Attending Clinician Unavailable JERZY BRADFORD Attending Clinician [...] Attending Clinician DOUG HAMMER Admitting Clinician Unavailable _[facility]_Diggs_R Admitting Clinician Unavailable ROSA M Admitting Clinician Unavailable González Flannery Admitting Clinician Tommy Del Toro Admitting Clinician Payers Payer Name Policy Type Policy Number Effective Date Expiration Date Davie [place] [id number] 2020 2021 [employer] OON 00:00:00 00:00:00 EXCEPT [facility] [id number] [facility] [place]-RMP [id number] 2022 00:00:00 [employer] [id number] 2022 OUT OF NETWORK 00:00:00 TP68 [facility] [id number] 2021 PROGRAM 00:00:00 [place] [id number] 2021 [facility] 00:00:00 PROGRAM (MEDICAID) [facility] [id number] 2020 00:00:00 Problems Condition Condition Condition Status Onset Resolution Last Treating Co mments Source Name Details Category Date Date Treatment Clinician Date FACE/RT FACE/RT Diagnosis Active 2022-03-19 Memlizzy SIDE SIDE 03-18 13:51:00 l NUMBNESS NUMBNESS 00:00: Garrett lynch Active 00 03/18/2022 [facility] FEVER, FEVER, Diagnosis Active 2022-03-13 Me moria BODY PAIN BODY PAIN 03-13 21:46:00 l Active 00:00: Dav 03/13/[address] [place] [address] Hypertensi Hypertensi Problem Active P rivia ve ve 3-29 Medical disorder Disorder 00:00: 00 Bipolar Bipolar Disease Active 2020-08 Univers disord, disord, 0-25 ity of crnt epsd cr[place] eps[place] dep[place] Medica l sev, w/o sev, w/o Branch psych psych features features Anxiety Anxiety Disease Active 2020-08 Univers disorder, disorder, 0-25 ity [place] unspecif[place] 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 0-25 ity of stress stress 00:00: [place] disorder disorder 00 Medica l Branch SENT BY DR SENT BY Diagnosis Active 2021-03-18 Erik SAINI Active 01-20 15:44:00 l 01/20/2021 00:00: Garrett lynch [address] Chronic Chronic Disease Active Univers left hip left hip 7-19 ity of pain pain 00:00: [place] [id number] Medical Branch INTRACTABL INTRACTAB Diagnosis Active 2015-10-17 Memoria E VOMITING LE 09-02 16:18:00 l S/P VOMITING 00:00: Dav GASTRIC S/P 00 SLEEVE GASTRIC SLEEVE Active 09/02/2015 [facility] VOMITTING VOMITTING Diagnosis Active 2015-09-17 Memoria Active 09-02 18:24:00 l 09/02/2015 00:00: Garrett lynch 00 [facility] ABDOMINAL ABDOMINAL Diagnosis Active 2014-082015-08-26 Memoria PAIN PAIN 10-27 11:29:00 l Active 00:00: Dav 08/26/2015 00 [facility] UNK UNK Diagnosis Active 2014-082015-08-06 Mem oria Active 10-06 12:24:00 l 08/05/2015 00:00: Garrett lynch 00 [facility] E66.01 E66.01 Diagnosis Active 2014-082015-08-16 Me moria Active 10-06 14:56:00 l 08/05/2015 00:00: Garrett lynch 00 [facility] MORBID MORBID Diagnosis Active 2014-082015-06-24 Me moria OBESITY OBESITY 0-23 15:17:00 l Active 00:00: Dav 06/21/2015 00 [facility] K21.9; K21.9; Diagnosis Active 2014-082015-06-24 M emoria GASTRO-ESO GASTRO-ESO 0- 09:25:00 l PHAGEAL PHAGEAL 00:00: Dav REFLUX REFLUX 00 DISEASE DISEASE Active 06/19/2015 [facility] K21.0 K21.0 Diagnosis Active 2015-06-10 Mem oria Active 05-07 06:23:00 l 05/07/2015 00:00: Garrett lynch 00 [facility] Bipolar Bipolar Problem Resolve 2015-09-22 M emoria (qualifier (qualifier d 02:57:40 l value) value) Ramona Resolved Problem 09/22/2015 [facility] Obesity Obesity Problem Resolve 2015-09-22 M emoria (disorder) (disorder) d 02:57:40 l Resolved Dav Problem 09/22/2015 [facility] Acid Acid Problem Active 2015-09-22 Memor ia reflux reflux 02:57:40 l (finding) (finding) Herm kailash Active Problem 09/22/2015 [facility] Pain in Pain in Problem Active 2022-03-21 Me moria lower limb lower limb 21:09:41 l (finding) (finding) Herm kailash Active Problem 03/21/2022 [facility] GASTRO-ESO GASTRO-ES Diagnosis Active 2015-06-10 Memoria PHAGEAL OPHAGEAL 06:23:00 l REFLUX REFLUX Ramona DISEASE DISEASE WITH ES WITH ES Active [facility] MORBID MORBID Diagnosis Active 2015-08-16 Me moria (SEVERE) (SEVERE) 14:56:00 l OBESITY OBESITY Ramona DUE TO DUE TO EXCESS CA EXCESS CA Active [facility] VOMITING, VOMITING, Diagnosis Active 2015-10-17 Memoria UNSPECIFIE UNSPECIFIE 16:18:00 l D D Active [facility] History of Past Illness Condition Condition Condition Status Onset Resolution Last Treating Co mments Source Name Details Category Date Date Treatment Clinician Date 2018-nCo2018-nCoV Problem 2022-03-21 2022-03-21 Memoria acute acute 03-19 21:09:41 21:09:41 l respirator respirator 06:21: He rmann y disease y disease 00 03/19/2022 03/21/2022 [facility] Paresthesi Paresthes Problem 2022-03-21 2022-03-21 Memoria a of skin ia of skin 03-19 21:09:41 21:09:41 l 06:21: Garrett n 2 00 03/21/2022 [facility] Hypokalemi Hypokalem Problem 2022-03-21 2022-03-21 Memoria a ia 03-19 21:09:41 21:09:41 l 03/19/2022 06:21: Garrett n 2 [facility] Discharge Discharge Problem 2014-082015-08-29 2015-08-29 Memoria Diagnosis: Diagnosis: 10-27 03:22:03 03:22:03 l Abdominal Abdominal 06:00: Herm kailash pain pain 00 08/26/2015 5 [facility] Allergies, Adverse Reactions, Alerts Allergy Allergy Status [...] to drug Latex Latex Active Memoria l Ramona Tessalon Tessalon Active Memori a [place] l Ramona Latex Allergy Active [facility] to Medical substanc e Social History Social Habit Start Date Stop Date Quantity Comments Source Gender identity [facility] Tobacco use and 2023-01-19 2023-01-19 Smokeless Universit y of exposure 00:00:00 00:00:00 tobacco non-user [facility] History of Social 2022-11-03 2022-11-[address] function 00:00:00 00:00:00 Hospital Exposure to 2022-08-16 2022-08-26 Not sure University SARS-CoV-2 (event) 00:00:00 13:07:00 [facility] Alcohol intake 2022-06-11 2022-06-11 Current [facility] 00:00:00 00:00:00 non-drinker of Hospital alcohol (finding) Social History 2015-08-15 2015-08-15 [facility] 18:23:25 18:23:25 Sex Ass[birth year] At [birth year] [facility] 00:00:[facility] 00:00:00 Hospital Smoking Status Start Date Stop Date Source Tobacco smoking consumption Univ [facility] unknown Branch Never smoked tobacco [facility] Medications Ordered Filled Start Stop Current Ordering Indication Dosage Frequency Signature Comments Components Source Medication Medication Date Date Medication? Clinician (SIG) Name Name amitriptyli 2022- No 100mg Take 1 Un jo ne 100 mg 5-23 05-23 tablet by ity of tablet 10:59: 00:00 mouth. [place] 19 :00 Medical Branch amitriptyli 2023-0 2023- No 100mg Take 1 Un jo ne 100 mg 5-23 05-23 tablet by ity of tablet 10:59: 00:00 mouth. [place] 19 :00 Medical Branch busPIRone 3-0 2023- No 10mg Take 1 Unive rs 10 mg 5-23 05-23 tablet by ity of tablet 10:59: 00:00 mouth. [place] 16 :00 Medical Branch buPROPion 2022-0 2023- No 300mg Take 1 Univ ers XL 300 mg 5-23 05-23 tablet by ity of 24 hr 10:59: 00:00 mouth. [place] tablet 16 :00 Medical Branch busPIRone 3-0 3- No 10mg Take 1 Unive rs 10 mg 5-23 05-23 tablet by ity of tablet 10:59: 00:00 mouth. [place] 16 :00 Medical Branch buPROPion 2022-0 3- No 300mg Take 1 Univ ers XL 300 mg 5-23 05-23 tablet by ity of 24 hr 10:59: 00:00 mouth. [place] tablet 16 :00 Medical Branch furosemide 2022-0 2023- No 40mg Take 1 Univ ers 40 mg 5-23 05-23 tablet by ity of tablet 10:59: 00:00 mouth. [place] 09 :00 Medical Branch furosemide 3-0 2023- No 40mg Take 1 Univ ers 40 mg 5-23 05-23 tablet by ity of tablet 10:59: 00:00 mouth. [place] 09 :00 Medical Branch insulin 3-0 2022- No inject Univers aspart 5-23 05-23 under the ity of RAPID 100 10:59: 00:00 skin. Dot unit/mL 06 :00 Medical injection Branch insulin 2022-0 202- No inject Univers aspart 5-23 05-23 under the ity of RAPID 100 10:59: 00:00 skin. [place] unit/mL 06 :00 Medical injection Branch insulin 3-0 3- No inject Univers glargine 5-23 05-23 under the ity o f 100 unit/mL 10:59: 00:00 skin. [place] injection 03 :00 Medical Branch insulin 3-0 2022- No inject Univers glargine -19 01-23 under the ity o f 100 unit/mL 10:59: 00[place] 03 :[place] metFORMIN 2022-0 2022- No 850mg Take 1 Univ ers 850 mg 5-23 05-23 tablet by ity of tablet 10:58: 00:00 mouth. [place] 57 :00 Medical Branch metFORMIN 2022-0 2022- No 850mg Take 1 Univ ers 850 mg 5-23 -23 tablet by ity of tablet 10:58: 00:00 mouth. [place] 57 :00 [facility] Branch SERTraline 2022-0 Yes 882 50mg Take 1 Unive rs (ZOLOFT) 50 5-23 tablet by ity of mg tablet 10:31: mouth in [place] [address] the Medical morning. Branch Indication s: depression levETIRAcet 2022-0 Yes 2716 500mg Take 1 Uni vers am (KEPPRA) 5-23 tablet by ity of 500 mg 10:31: mouth in [place] tablet the Medical morning Branch and 1 tablet at noon and 1 tablet in the evening. Indication s: seizures hydrOXYzine 2022-0 Yes 25mg Take 1 Univ ers 25 mg 5-23 tablet by ity of tablet 10:31: mouth [place] [id number] every 8 Medical (eight) Branch hours as needed for Anxiety. Insulin 0 Yes 25U inject 25 Unive rs NPH-Regular 5-23 Units ity of Human Rec 10:31: under the [place] (NOVOLIN 26 skin Medical 70-30 before Branch FLEXPEN meals and U-100) 100 at unit/mL bedtime. (70-30) injection SERTraline 2022-0 Yes 882 50mg Take 1 Unive rs (ZOLOFT) 50 5-23 tablet by ity of mg tablet 10:31: mouth in [place] [address] the Medical morning. Branch Indication s: depression levETIRAcet 2022-0 Yes 2716 500mg Take 1 Uni vers am (KEPPRA) 5-23 tablet by ity of 500 mg 10:31: mouth in [place] tablet 26 the Medical morning Branch and 1 tablet at noon and 1 tablet in the evening. Indication s: seizures hydrOXYzine 2022-0 Yes 25mg Take 1 Univ ers 25 mg 5-23 tablet by ity of tablet 10:31: mouth [place] 26 every 8 Medical (eight) Branch hours as needed for Anxiety. Insulin Yes 25U inject 25 Unive rs NPH-Regular 5-23 Units ity of Human Rec 10:31: under the [place] as (NOVOLIN 26 skin Medical 70-30 before Branch FLEXPEN meals and U-100) 100 at unit/mL bedtime. (70-30) injection SERTraline 2022- No Univer s 100 mg 4-30 05-23 ity of tablet 00:00: 00:00 [place] 00 :00 Medical Branch SERTraline 2022- No Univer s 100 mg 4-30 05-23 ity of tablet 00:00: 00:00 [place] 00 :00 Medical Branch albuterol 2021-08 Yes [id number] 2{puff} Inhale 2 Univers 90 2-28 Puffs ity of mcg/actuati 00:00: every 4 [place] as on inhaler 00 (four) Medical hours as Branch needed for Wheezing or Shortness of Breath. albuterol 2021-08 Yes [id number] 2{puff} Inhale 2 Univers 90 2-28 Puffs ity of mcg/actuati 00:00: every 4 [place] on inhaler 00 (four) Medical hours as Branch needed for Wheezing or Shortness of Breath. albuterol 2021-08 Yes [id number] 2{puff} Inhale 2 Univers 90 2-28 Puffs ity of mcg/actuati 00:00: every 4 [place] on inhaler 00 (four) Medical hours as Branch needed for Wheezing or Shortness of Breath. cephalexin 2021-08 No 500mg Q.[id number] Take 1 Methodi (Keflex) 06-17 [id number] capsule s t 500 MG 00:00: 04:59 [...] to 5 days. cephalexin 2021-08- No 500mg Q.[id number] Take 1 Methodi (Keflex) 0-13 10-19 [id number] capsule s t 500 MG 00:00: 04:59 [...] to 5 days. cephalexin 2021-08- No 500mg Q.[id number] Take 1 Methodi (Keflex) 0-13 10- [id number] capsule s t 500 MG 00:00: 04:59 [...] to 5 days. cephalexin 2021-08- No 500mg Q.[id number] Take 1 Methodi (Keflex) 0-13 10-19 [id number] capsule s t 500 MG 00:00: 04:59 [...] to 5 days. cephalexin 2021-08- No 500mg Q.[id number] Take 1 Methodi (Keflex) 0-13 10- [id number] capsule s t 500 MG 00:00: 04:59 [...] to 5 days. cephalexin 2021-08 No 500mg Q.[id number] Take 1 Methodi (Keflex) 0-13 - [id number] capsule s t 500 MG 00:00: 04:59 [...] to 5 days. cephalexin 2021-08 No 500mg Q.[id number] Take 1 Methodi (Keflex) 0-13 - [id number] capsule s t 500 MG 00:00: 04:59 [...] to 5 days. cephalexin 2021-08- No 500mg Q.[id number] Take 1 Methodi (Keflex) 0-13 10- [id number] capsule s t 500 MG 00:00: 04:59 [...] or vomiting for up to 5 days. acetaminoph 2022- No 1{tbl} Take 1 U nivers en-codeine 05-13 05-23 tablet by ity of 300-30 mg 00:00: 00:00 mouth. [place] tablet 00 :00 Medical Branch acetaminoph 2022- No 1{tbl} Take 1 U nivers en-codeine 05-13-23 tablet by ity of 300-30 mg 00:00: 00:00 mouth. [place] tablet 00 :00 Medical Branch ergocalcife 2021-0 Yes [id number] Take 1 Un jo rol, 9-08 capsule by ity of vitamin d2, 00:00: mouth [place] 1,250 mcg 00 weekly. Medical (50,000 Branch unit) capsule ergocalcife 2021-0 Yes [id number] Take 1 Un jo rol, 9-08 capsule by ity of vitamin d2, 00:00: mouth [place] 1,250 mcg 00 weekly. Medical (50,000 Branch unit) capsule loratadine 2022- No 10mg Take 1 Univ ers 10 mg 05-07 tablet by ity of tablet 00:00: 00:00 mouth [place] 00 :00 every Medical morning. Branch SUMAtriptan 2022- No Take 1 Uni vers 25 mg 05-0723 tablet by ity of tablet 00:00: 00:00 mouth at [place] 00 :00 onset of Medical headache. Branch Repeat after 2 hours if needed. Maximum 200mg/24 hours. loratadine 2022- No 10mg Take 1 Univ ers 10 mg 05-0723 tablet by ity of tablet 00:00: 00:00 mouth [place] 00 :00 every Medical morning. Branch SUMAtriptan 2022-0 2023- No Take 1 Uni vers 25 mg 05-07 tablet by ity of tablet 00:00: 00:00 mouth at [place] 00 :00 onset of Medical headache. Branch Repeat after 2 hours if needed. Maximum 200mg/24 hours. potassium 2021-0 No /= 14 Memoria chloride 7-21 Jamaican, l 05:55: december Ramona 00 dissolve each 20 mEq tablet in 4 oz of water. Allow about 2 minutes for the tablets to disintegra te. Stir before giving to prepare slurry and administer . Please exclude patient's with feeding tube less than 14 Jamaican (Dobhoff, J-tube, etc) and pediatric and patients. potassium 202-0 No /= 14 Memoria chloride 7-21 [place], l 05:55: december Ramona 00 dissolve each 20 mEq tablet in 4 oz of water. Allow about 2 minutes for the tablets to disintegra te. Stir before giving to prepare slurry and administer . Please exclude patient's with feeding tube less than 14 Jamaican (Dobhoff, J-tube, etc) and pediatric and patients. potassium 2021-0 No /= 14 Memoria chloride 7-21 [place], l 05:55: december Ramona 00 dissolve each 20 mEq tablet in 4 oz of water. Allow about 2 minutes for the tablets to disintegra te. Stir before giving to prepare slurry and administer . Please exclude patient's with feeding tube less than 14 Jamaican (Dobhoff, J-tube, etc) and pediatric and patients. potassium 2021-0 No /= 14 Memoria chloride 7-21 Jama[place], l 05:55: december Ramona 00 dissolve each 20 mEq tablet in 4 oz of water. Allow about 2 minutes for the tablets to disintegra te. Stir before giving to prepare slurry and administer . Please exclude patient's with feeding tube less than 14 Jamaican (Dobhoff, J-tube, etc) and pediatric and patients. potassium 2022-0 No /= 14 Memoria chloride 7-21 Jamaican, l 05:55: december Dav 00 dissolve each 20 mEq tablet in 4 oz of water. Allow about 2 minutes for the tablets to disintegra te. Stir before giving to prepare slurry and administer . Please exclude patient's with feeding tube less than 14 Jamaican (Dobhoff, J-tube, etc) and pediatric and patients. potassium 2022-0 No /= 14 Memoria chloride 7-21 Jamaican, l 05:55: december Ramona 00 dissolve each 20 mEq tablet in 4 oz of water. Allow about 2 minutes for the tablets to disintegra te. Stir before giving to prepare slurry and administer . Please exclude patient's with feeding tube less than 14 Jamaican (Dobhoff, J-tube, etc) and pediatric and patients. potassium 2022-0 No /= 14 Memoria chloride 7-21 Jamaican, l 05:55: december Ramona 00 dissolve each 20 mEq tablet in 4 oz of water. Allow about 2 minutes for the tablets to disintegra te. Stir before giving to prepare slurry and administer . Please exclude patient's with feeding tube less than 14 Jamaican (Dobhoff, J-tube, etc) and pediatric and patients. potassium 2022-0 No /= 14 Memoria chloride 7-21 Jamaican, l 05:55: may Ramona 00 dissolve each 20 mEq tablet in 4 oz of water. Allow about 2 minutes for the tablets to disintegra te. Stir before giving to prepare slurry and administer . Please exclude patient's with feeding tube less than 14 Jamaican (Dobhoff, J-tube, etc) and pediatric and patients. potassium 2022-0 No /= 14 Memoria chloride 7-21 Jamaican, l 05:55: december Ramona 00 dissolve each 20 mEq tablet in 4 oz of water. Allow about 2 minutes for the tablets to disintegra te. Stir before giving to prepare slurry and administer . Please exclude patient's with feeding tube less than 14 Jamaican (Dobhoff, J-tube, etc) and pediatric and patients. potassium 2022-0 No /= 14 Memoria chloride 7-21 Jamaican, l 05:55: december Ramona 00 dissolve each 20 mEq tablet in 4 oz of water. Allow about 2 minutes for the tablets to disintegra te. Stir before giving to prepare slurry and administer . Please exclude patient's with feeding tube less than 14 Jamaican (Dobhoff, J-tube, etc) and pediatric and patients. potassium 2022-0 No /= 14 Memoria chloride 7-21 Jamaican, l 05:55: may Dav 00 dissolve each 20 mEq tablet in 4 oz of water. Allow about 2 minutes for the tablets to disintegra te. Stir before giving to prepare slurry and administer . Please exclude patient's with feeding tube less than 14 Jamaican (Dobhoff, J-tube, etc) and pediatric and patients. potassium 2022-0 No /= 14 Memoria chloride 7-21 Jamaican, l 05:55: december Ramona 00 dissolve each 20 mEq tablet in 4 oz of water. Allow about 2 minutes for the tablets to disintegra te. Stir before giving to prepare slurry and administer . Please exclude patient's with feeding tube less than 14 Jamaican (Dobhoff, J-tube, etc) and pediatric and patients. potassium 2022-0 No /= 14 Memoria chloride 7-21 Jamaican, l 05:55: december Ramona 00 dissolve each 20 mEq tablet in 4 oz of water. Allow about 2 minutes for the tablets to disintegra te. Stir before giving to prepare slurry and administer . Please exclude patient's with feeding tube less than 14 Jamaican (Dobhoff, J-tube, etc) and pediatric and patients. potassium 2022-0 No /= 14 Memoria chloride 7-21 Jamaican, l 05:55: december Ramona 00 dissolve each 20 mEq tablet in 4 oz of water. Allow about 2 minutes for the tablets to disintegra te. Stir before giving to prepare slurry and administer . Please exclude patient's with feeding tube less than 14 Jamaican (Dobhoff, J-tube, etc) and pediatric and patients. potassium 2022-0 No /= 14 Memoria chloride 7-21 Jamaican, l 05:55: december Dav 00 dissolve each 20 mEq tablet in 4 oz of water. Allow about 2 minutes for the tablets to disintegra te. Stir before giving to prepare slurry and administer . Please exclude patient's with feeding tube less than 14 Jamaican (Dobhoff, J-tube, etc) and pediatric and patients. potassium 202-0 No /= 14 Memoria chloride 7-21 Jamaican, l 05:55: december Dav 00 dissolve each 20 mEq tablet in 4 oz of water. Allow about 2 minutes for the tablets to disintegra te. Stir before giving to prepare slurry and administer . Please exclude patient's with feeding tube less than 14 Jamaican (Dobhoff, J-tube, etc) and pediatric and patients. EPINEPHrine 2021-0 Yes .3mg 0.3 mL by U nivers 0.3 mg/0.3 7-21 Intramuscu ity of mL 00:00: lar route. [address] EPINEPHrine 2021-0 Yes .3mg 0.3 mL by U nivers 0.3 mg/0.3 03-19 Intramuscu ity of mL 00:00: lar route. [place] injection 00 Medical Branch fluticasone 2021-0 2022- No 1{puff} Inhale 1 Univers propion-gideon 03-19 Puff. ity of meteroL 00:00: 00:00 [place] 250-50 00 :00 Medical mcg/dose Branch inhalation disk sucralfate 2021-0 2022- No 1g Take 1 Univ ers 1 gram 03-19 tablet by ity of tablet 00:00: 00:00 mouth 4 [place] 00 :00 (four) Medical times Branch daily. fluticasone 2021-0 2022- No 1{puff} Inhale 1 Univers propion-gideon 03-19 Puff. ity of meteroL 00:00: 00:00 [place] 250-50 00 :00 Medical mcg/dose Branch inhalation disk sucralfate 2021-0 2022- No 1g Take 1 Univ ers 1 gram 03-19 tablet by ity of tablet 00:00: 00:00 mouth 4 [place] 00 :00 (four) Medical times Branch daily. Tessalon 2022-0 Yes 200 mg = 1 [...] tab, PO, l tablet 03:27: Q6H, PRN Ramona 00 Pain or Fever, Take with food, X 10 day, # 40 tab, 0 Refill(s) ibuprofen 0 Yes 600 mg = 1 Me moria 600 mg oral 7-16 tab, PO, l tablet 03:27: Q6H, PRN Ramona 00 Pain or Fever, Take with food, [...] tab, PO, l tablet 03:27: Q6H, PRN Ramona 00 Pain or Fever, Take with food, [...] tab, PO, l tablet 03:27: Q6H, PRN Ramona 00 Pain or Fever, Take with food, [...] tab, PO, l tablet 03:27: Q6H, PRN Ramona 00 Pain or Fever, Take with food, [...] vane 7-16 acetaminop l 00:44: hen 4000 Ramona 00 mg/day (4 gm/day). (Same as: Tylenol [...] vane 7-16 acetaminop l 00:44: hen 4000 Ramona 00 mg/day (4 gm/day). (Same as: Tylenol Extra Strength) Tylenol 0 No Notes: Max Henok vane 7-16 acetaminop l 00:44: hen 4000 Ramona 00 mg/day (4 gm/day). (Same as: Tylenol Extra Strength) Tylenol 0 No Notes: Max Henok vane 7-16 acetaminop l 00:44: hen 4000 Ramona 00 mg/day (4 gm/day). (Same as: Tylenol Extra Strength) Tylenol 0 No Notes: Max Henok vane 7-16 acetaminop l 00:44: hen 4000 Ramona 00 mg/day (4 gm/day). (Same as: Tylenol Extra Strength) Tylenol 0 No Notes: Max Henok vane 7-16 acetaminop l 00:44: hen 4000 Ramona 00 mg/day (4 gm/day). (Same as: Tylenol [...] vane 7-16 acetaminop l 00:44: hen 4000 Ramona 00 mg/day (4 gm/day). (Same as: Tylenol Extra Strength) cyanocobala 2021-0 Yes 1000ug 1 mL by U nivers min 1,000 7-05 Intramuscu ity of mcg/mL 00:00: lar route. [place] injection 00 Medical Branch cyanocobala 2021-0 Yes 1000ug 1 mL by U nivers min 1,000 7-05 Intramuscu ity of mcg/mL 00:00: lar route. [place] injection 00 Medical Branch ibuprofen 2021-0 2023- No 800mg Take 1 Univ ers 800 mg 02-27 tablet by ity of tablet 00:00: 00:00 mouth. [place] 00 :00 Medical Branch ibuprofen 2-0 2023- No 800mg Take 1 Univ ers 800 mg 02-27 tablet by ity of tablet 00:00: 00:00 mouth. [place] 00 :00 Medical Branch phentermine 2021-0 2022- No 37.5mg Take 1 U nivers 37.5 mg 6-28 05-23 capsule by ity o f capsule 00:00: 00:00 mouth [place] 00 :00 every Medical morning. Branch phentermine 0 2022- No 37.5mg Take 1 U nivers 37.5 mg 6-28 05-23 capsule by ity o f capsule 00:00: 00:00 mouth [place] 00 :00 every Medical morning. Branch cabergoline 0 Yes .25mg Take 0.5 U nivers 0.5 mg 6-09 tablets by ity of tablet 00:00: mouth. [place] Medical Branch cabergoline 2021-0 Yes .25mg Take 0.5 U nivers 0.5 mg 6-09 tablets by ity of tablet 00:00: mouth. [place] Medical Branch venlafaxine 2022- No Take two U nivers 75 mg 6- 05-23 tablets ity of tablet 00:00: 00:00 every [place] 00 :00 morning, Medical one tablet Branch at midday, and two tablets each evening for depression venlafaxine 2021-0 2022- No Take two U nivers 75 mg 6- 05-23 tablets ity of tablet 00:00: 00:00 every [place] 00 :00 morning, Medical one tablet Branch at midday, and two tablets each evening for depression furosemide Yes 40mg Q.5D Take 40 mg M ethodi (LASIX) 40 5-[address] mg tablet 10:40: (two) [facility] 34 times a l day. furosemide 0 Yes 40mg Q.5D Take 40 mg M ethodi (LASIX) 40 5-[address] mg tablet 10:40: (two) [facility] 34 times a l day. furosemide 2020-0 Yes 40mg Q.5D Take 40 mg M ethodi (LASIX) 40 5-[address] mg tablet 10:40: (two) [facility] 34 times a l day. furosemide 2020-0 Yes 40mg Q.5D Take 40 mg M ethodi (LASIX) 40 5-[address] mg tablet 10:40: (two) [facility]osp[facility] 34 times a l day. furosemide 2020-0 Yes 40mg Q.5D Take 40 mg M [...] times a l day. insulin 2021-0 Yes [id number] Inject Me thodi ASPART 5-[id number] (NovoLOG) 10:40: 3D skin [...] nightly. l injection (vial) insulin 2021-0 Yes [id number] Inject Me thodi ASPART 5-[id number] (NovoLOG) 10:40: 3D skin [...] nightly. l injection (vial) insulin 2021-0 Yes [id number] Inject Me thodi ASPART 5-[id number] (NovoLOG) 10:40: 3D skin [...] nightly. l injection (vial) insulin 2021-0 Yes [id number] Inject Me thodi ASPART 5-[id number] (NovoLOG) 10:40: 3D skin [...] nightly. l injection (vial) insulin 2021-0 Yes [id number] Inject Me thodi ASPART 5-[id number] (NovoLOG) 10:40: 3D skin [...] nightly. l injection (vial) insulin 2021-0 Yes [id number] Inject Me thodi ASPART 5-[id number] (NovoLOG) 10:40: 3D skin [...] nightly. l injection (vial) insulin 2021-0 Yes [id number] Inject Me thodi ASPART 5-[id number] (NovoLOG) 10:40: 3D skin [...] nightly. l injection (vial) insulin 2021-0 Yes [id number] Inject Me thodi ASPART 5-[id number] (NovoLOG) 10:40: 3D skin [...] swelling) for up to 20 doses. Reglan 2016-0 No Notes: [facility] 1-22 (Same as: l 00:00: Reglan) Dav Reglan No Notes: [facility] 1-22 (Same as: l 00:00: Reglan) Dav 00 Reglan No Notes: [facility] 1-22 (Same as: l 00:00: Reglan) Dav 00 Reglan No Notes: [facility] 1-22 (Same as: l 00:00: Reglan) Ramona 00 Reglan No Notes: [facility] 1-22 (Same as: l 00:00: Reglan) Ramona 00 Reglan No Notes: [facility] 1-22 (Same as: l 00:00: Reglan) Ramona 00 Reglan No Notes: [facility] 1-22 (Same as: l 00:00: Reglan) Ramona 00 Reglan No Notes: [facility] 1-22 (Same as: l 00:00: Reglan) Dav 00 Reglan No Notes: [facility] 1-22 (Same as: l 00:00: Reglan) Dav 00 Reglan No Notes: [facility] 1-22 (Same as: l 00:00: Reglan) Ramona 00 Reglan No Notes: [facility] 1-22 (Same as: l 00:00: Reglan) Dav 00 Reglan No Notes: [facility] 1-22 (Same as: l 00:00: Reglan) Ramona 00 Reglan No Notes: [facility] 1-22 (Same as: l 00:00: Reglan) Dav Reglan No Notes: [facility] 1-22 (Same as: l 00:00: Reglan) Ramona 00 Reglan No Notes: [facility] 1-22 (Same as: l 00:00: Reglan) Ramona Reglan No Notes: [facility] 1-22 (Same as: l 00:00: Reglan) Dav Sodium No 1,000 mL, Memori a Chloride 1-21 Rate: 25 l 0.154 18:06: ml/hr, Dav MEQ/ML 00 Infuse Injectable over: 40 Solution hr, Route: IV, Dosing Weight 160.909 kg, Total Volume: 1,000, Start date: 09/19/15 12:06:00, Duration: 30 day, Stop date: 10/19/15 12:05:00 Sodium 2016-0 No 1,000 mL, Memori a Chloride 1-21 Rate: 25 l 0.154 18:06: ml/hr, Ramona MEQ/ML 00 Infuse Injectable over: 40 Solution [...] 1-21 Rate: 25 l 0.154 18:06: ml/hr, Ramona MEQ/ML 00 Infuse Injectable over: 40 Solution hr, Route: IV, Dosing Weight 160.909 kg, Total Volume: 1,000, Start date: 09/19/15 12:06:00, Duration: 30 day, Stop date: 10/19/15 12:05:00 Sodium 2016-0 No 1,000 mL, Memori a Chloride 1-21 Rate: 25 l 0.154 18:06: ml/hr, Ramona MEQ/ML 00 Infuse Injectable over: 40 Solution hr, Route: IV, Dosing Weight 160.909 kg, Total Volume: 1,000, Start date: 09/19/15 12:06:00, Duration: 30 day, Stop date: 10/19/15 12:05:00 Sodium 2016-0 No 1,000 mL, Memori a Chloride 1-21 Rate: 25 l 0.154 18:06: ml/hr, Ramona MEQ/ML 00 Infuse Injectable over: 40 Solution [...] 1-21 Rate: 25 l 0.154 18:06: ml/hr, Ramona MEQ/ML 00 Infuse Injectable over: 40 Solution [...] 1-21 Rate: 25 l 0.154 18:06: ml/hr, Ramona MEQ/ML 00 Infuse Injectable over: 40 Solution hr, Route: IV, Dosing Weight 160.909 kg, Total Volume: 1,000, Start date: 09/19/15 12:06:00, Duration: 30 day, Stop date: 10/19/15 12:05:00 Sodium 2016-0 No 1,000 mL, Memori a Chloride 1-21 Rate: 25 l 0.154 18:06: ml/hr, Ramona MEQ/ML 00 Infuse Injectable over: 40 Solution [...] 1-21 tab, PO, l oral 17:08: Before Ramona enteric 00 Dinner, # coated 30 tab, [...] tab, PO, l Tablet 17:08: Daily, # Ramona 00 30 tab, 0 Refill(s) thiamine 2016-0 Yes 100 mg = 1 Mem oria 100 mg oral 1-21 tab, PO, l tablet 17:08: Daily, X 14 day, # 14 tab, 0 Refill(s) pantoprazol 2016-0 Yes 40 mg = 1 M emoria e 40 mg 1-21 tab, PO, l oral 17:08: Before Ramona enteric 00 Dinner, # coated 30 tab, 0 tablet Refill(s) Promethazin 2016-0 Yes 12.5 mg = M emoria e 1-21 1 tab, PO, l Hydrochlori 17:08: Q6H, PRN He rm de 12.5 MG 00 Nausea & Oral [...] 1-21 tab, PO, l oral 17:08: Before enteric Dinner, # coated 30 tab, 0 tablet Refill(s) Promethazin 2016-0 Yes 12.5 mg = M emoria e 1-21 1 tab, PO, l Hydrochlori 17:08: Q6H, PRN rm de 12.5 MG 00 Nausea & Oral Tablet Vomiting, [Phenergan] X 7 day, # 28 tab, 0 Refill(s) Folic Acid 2015- Yes 1 mg = 1 Mem oria 1 MG Oral 1-21 tab, PO, l Tablet 17:08: Daily, 30 tab, 0 Refill(s) thiamine 2016-0 Yes 100 mg = 1 Mem oria 100 mg oral 1-21 tab, PO, l tablet 17:08: Daily, X 14 day, # 14 tab, 0 Refill(s) pantoprazol 2016-0 Yes 40 mg = 1 M emoria e 40 mg 1-21 tab, PO, l oral 17:08: Before Ramona enteric Dinner, # coated 30 tab, 0 [...] Daily, # 30 tab, 0 Refill(s) thiamine 2015-0 Yes 100 mg = 1 Mem oria [...] 7 day, # 28 tab, 0 Refill(s) thiamine 2016-0 Yes 100 mg = 1 Mem oria 100 mg oral 1-21 tab, PO, l tablet 17:08: Daily, X 14 day, # 14 tab, 0 Refill(s) pantoprazol 2016-0 Yes 40 mg = 1 M emoria e 40 mg 1-21 tab, PO, l oral 17:08: Before Ramona enteric 00 Dinner, # coated 30 tab, [...] # Dav 00 30 tab, 0 Refill(s) Folic Acid 2016-0 Yes [...] 1-21 tab, PO, l oral 17:08: Before Ramona enteric 00 Dinner, # coated 30 tab, [...] tab, PO, l Tablet 17:08: Daily, # Ramona 00 30 tab, 0 Refill(s) thiamine 2016-0 Yes 100 mg = 1 Mem oria 100 mg oral 1-21 tab, PO, l tablet 17:08: Daily, X Dav 00 14 day, # 14 tab, 0 Refill(s) pantoprazol 2016-0 Yes 40 mg = 1 M emoria e 40 mg 1-21 tab, PO, l oral 17:08: Before Ramona enteric 00 Dinner, # coated 30 tab, [...] tab, PO, l Hydrochlori 17:08: Q6H, PRN rmann de 12.5 MG 00 Nausea & [...] 1-21 tab, PO, l oral 17:08: Before Ramona enteric 00 Dinner, # coated 30 tab, [...] tab, PO, l Tablet 17:08: Daily, # Ramona 00 30 tab, 0 Refill(s) thiamine 2016-0 Yes 100 mg = 1 Mem oria 100 mg oral 1-21 tab, PO, l tablet 17:08: Daily, X 14 day, # 14 tab, 0 Refill(s) pantoprazol 2016-0 Yes 40 mg = 1 M emoria e 40 mg 1-21 tab, PO, l oral 17:08: Before Ramona enteric Dinner, # coated 30 tab, 0 tablet Refill(s) Promethazin 2016-0 Yes 12.5 mg = M emoria e 1-21 1 tab, PO, l Hydrochlori 17:08: Q6H, PRN rmann de 12.5 MG 00 Nausea & Oral Tablet Vomiting, [Phenergan] X 7 day, # 28 tab, 0 Refill(s) Folic Acid 2016-0 Yes 1 mg = 1 Mem oria 1 MG Oral 1-21 tab, PO, l Tablet 17:08: Daily, # 30 tab, 0 Refill(s) Melatonin 2016-0 No 1 mg, Memoria -21 Route: PO, l 03:00: Drug form: Dav TAB, Bedtime, Dosing Weight 160.909, kg, Start date: 09/18/15 21:00:00, Duration: 30 day, Stop date: 10/17/15 21:00:00 Lamictal 2016-0 No Notes: [facility] 1-21 (Same l 03:00: as:LaMICta Dav 00 l) Strattera 2016-0 No 80 mg, Memori a 1-21 Route: PO, l 03:00: Drug form: Ramona 00 CAP, Bedtime, Dosing Weight 160.909, kg, Start date: 09/18/15 21:00:00, Duration: 30 day, Stop date: 10/17/15 21:00:00 Melatonin 2015-0 No 1 mg, [facility] 1-21 Route: PO, l 03:00: Drug form: Dav 00 TAB, Bedtime, Dosing Weight 160.909, kg, Start date: 09/18/15 21:00:00, Duration: 30 day, Stop date: 10/17/15 21:00:00 Lamictal 2016-0 No Notes: [facility] 1-21 (Same l 03:00: as:LaMICta Ramona 00 l) Strattera 2015-0 No 80 mg, Memori a 1-21 Route: PO, l 03:00: Drug form: Dav 00 CAP, Bedtime, Dosing Weight 160.909, kg, Start date: 09/18/15 21:00:00, Duration: 30 day, Stop date: 10/17/15 21:00:00 Melatonin 2015-0 No 1 mg, [facility] 1-21 Route: PO, l 03:00: Drug form: Ramona 00 TAB, Bedtime, Dosing Weight 160.909, kg, Start date: 09/18/15 21:00:00, Duration: 30 day, Stop date: 10/17/15 21:00:00 Lamictal 2016-0 No Notes: [facility] 1-21 (Same l 03:00: as:LaMICta Ramona 00 l) Strattera 2016-0 No 80 mg, Memori a 1-21 Route: PO, l 03:00: Drug form: Dav 00 CAP, Bedtime, Dosing Weight 160.909, kg, Start date: 09/18/15 21:00:00, Duration: 30 day, Stop date: 10/17/15 21:00:00 Melatonin 2015-0 No 1 mg, [facility] 1-21 Route: PO, l 03:00: Drug form: Ramona 00 TAB, Bedtime, Dosing Weight 160.909, kg, Start date: 09/18/15 21:00:00, Duration: 30 day, Stop date: 10/17/15 21:00:00 Lamictal 2016-0 No Notes: [facility] 1-21 (Same l 03:00: as:LaMICta Dav 00 l) Strattera 2015-0 No 80 mg, Memori a 1- Route: PO, l 03:00: Drug form: Ramona 00 CAP, Bedtime, Dosing Weight 160.909, kg, Start date: 09/18/15 21:00:00, Duration: 30 day, Stop date: 10/17/15 21:00:00 Melatonin 2015-0 No 1 mg, [facility] 09-19 Route: PO, l 03:00: Drug form: Ramona 00 TAB, Bedtime, Dosing Weight 160.909, kg, Start date: 09/18/15 21:00:00, Duration: 30 day, Stop date: 10/17/15 21:00:00 Lamictal 2016-0 No Notes: [facility] 1- (Same l 03:00: as:LaMICta Dav 00 l) Strattera 0 No 80 mg, Memori a 1- Route: PO, l 03:00: Drug form: Ramona 00 CAP, Bedtime, Dosing Weight 160.909, kg, Start date: 09/18/15 21:00:00, Duration: 30 day, Stop date: 10/17/15 21:00:00 Melatonin 2015-0 No 1 mg, Memoria 1 Route: PO, l 03:00: Drug form: Ramona 00 TAB, Bedtime, Dosing Weight 160.909, kg, Start date: 09/18/15 21:00:00, Duration: 30 day, Stop date: 10/17/15 21:00:00 Lamictal 2016-0 No Notes: [facility] 1-21 (Same l 03:00: as:LaMICta Dav 00 l) Strattera 2015-0 No 80 mg, Memori a 1-21 Route: PO, l 03:00: Drug form: Ramona 00 CAP, Bedtime, Dosing Weight 160.909, kg, Start date: 09/18/15 21:00:00, Duration: 30 day, Stop date: 10/17/15 21:00:00 Melatonin 2015-0 No 1 mg, [facility] 1-21 Route: PO, l 03:00: Drug form: Ramona 00 TAB, Bedtime, Dosing Weight 160.909, kg, Start date: 09/18/15 21:00:00, Duration: 30 day, Stop date: 10/17/15 21:00:00 Lamictal 2016-0 No Notes: [facility] 1-21 (Same l 03:00: as:LaMICta Dav 00 l) Strattera 2015-0 No 80 mg, Memori a 1-21 Route: PO, l 03:00: Drug form: Ramona 00 CAP, Bedtime, Dosing Weight 160.909, kg, Start date: 09/18/15 21:00:00, Duration: 30 day, Stop date: 10/17/15 21:00:00 Melatonin 2015-0 No 1 mg, Memoria 1 Route: PO, l 03:00: Drug form: Dav 00 TAB, Bedtime, Dosing Weight 160.909, kg, Start date: 09/18/15 21:00:00, Duration: 30 day, Stop date: 10/17/15 21:00:00 Lamictal 2016-0 No Notes: [facility] 1-21 (Same l 03:00: as:LaMICta Ramona 00 l) Strattera 0 No 80 mg, Memori a 1-21 Route: PO, l 03:00: Drug form: Ramona 00 CAP, Bedtime, Dosing Weight 160.909, kg, Start date: 09/18/15 21:00:00, Duration: 30 day, Stop date: 10/17/15 21:00:00 Melatonin 2015-0 No 1 mg, Mem[facility] 1-21 Route: PO, l 03:00: Drug form: Ramona 00 TAB, Bedtime, Dosing Weight 160.909, kg, Start date: 09/18/15 21:00:00, Duration: 30 day, Stop date: 10/17/15 21:00:00 Lamictal 2016-0 No Notes: [facility] 1-21 (Same l 03:00: as:LaMICta Dav 00 l) Strattera 2016-0 No 80 mg, Memori a 1-21 Route: PO, l 03:00: Drug form: Ramona 00 CAP, Bedtime, Dosing Weight 160.909, kg, Start date: 09/18/15 21:00:00, Duration: 30 day, Stop date: 10/17/15 21:00:00 Melatonin 2015-0 No 1 mg, Mem[facility] 1-21 Route: PO, l 03:00: Drug form: Ramona 00 TAB, Bedtime, Dosing Weight 160.909, kg, Start date: 09/18/15 21:00:00, Duration: 30 day, Stop date: 10/17/15 21:00:00 Lamictal 2016-0 No Notes: [facility] 1-21 (Same l 03:00: as:LaMICta Dav l) Strattera 2015-0 No 80 mg, Memori a 1-21 Route: PO, l 03:00: Drug form: Dav 00 CAP, Bedtime, Dosing Weight 160.909, kg, Start date: 09/18/15 21:00:00, Duration: 30 day, Stop date: 10/17/15 21:00:00 Melatonin 2015-0 No 1 mg, Mem[facility] 1-21 Route: PO, l 03:00: Drug form: Ramona 00 TAB, Bedtime, Dosing Weight 160.909, kg, Start date: 09/18/15 21:00:00, Duration: 30 day, Stop date: 10/17/15 21:00:00 Lamictal 2016-0 No Notes: [facility] 1-21 (Same l 03:00: as:LaMICta Dav 00 l) Strattera 2016-0 No 80 mg, Memori a 1-21 Route: [...] l 03:00: as:LaMICta Dav 00 l) Strattera 2016-0 No 80 mg, Memori a 1-21 Route: [...] l 03:00: as:LaMICta Dav 00 l) Strattera 2016-0 No 80 mg, Memori a 1-21 Route: PO, l 03:00: Drug form: Ramona 00 CAP, Bedtime, Dosing Weight 160.909, kg, [...] l 03:00: as:LaMICta Dav 00 l) Strattera 2016-0 No 80 mg, Memori a 1-21 Route: [...] 1-21 Route: PO, l 03:00: Drug form: Ramona 00 CAP, Bedtime, Dosing Weight 160.909, kg, Start date: 09/18/15 21:00:00, Duration: 30 day, Stop date: 10/17/15 21:00:00 Melatonin 0 No 1 mg, Memoria 1 Route: PO, l 03:00: Drug form: Dav 00 TAB, Bedtime, Dosing Weight 160.909, kg, Start date: 09/18/15 21:00:00, Duration: 30 day, Stop date: 10/17/15 21:00:00 Lamictal 2016-0 No Notes: [facility] 1-21 (Same l 03:00: as:LaMICta Ramona 00 l) Strattera 2015-0 No 80 mg, Memori a 1-21 Route: PO, l 03:00: Drug form: Dav 00 CAP, Bedtime, Dosing Weight 160.909, kg, Start date: 09/18/15 21:00:00, Duration: 30 day, Stop date: 10/17/15 21:00:00 Protonix 2016-0 No Notes: Mem[facility] 1-20 Tablet l 22:30: should not Ramona 00 be chewed or crushed. (Same as: Protonix) Protonix 2015-0 No Notes: [facility] 1-20 Tablet l 22:30: should not Dav 00 be chewed or crushed. (Same as: Protonix) Protonix 2016-0 No Notes: [facility] 1-20 Tablet l 22:30: should not Dav 00 be chewed or crushed. (Same as: Protonix) Protonix 2016-0 No Notes: [facility] 1-20 Tablet l 22:30: should not Ramona 00 be chewed or crushed. (Same as: Protonix) Protonix 0 No Notes: [facility] 1-20 Tablet l 22:30: should not Dav 00 be chewed or crushed. (Same as: Protonix) Protonix 0 No Notes: [facility] 1-20 Tablet l 22:30: should not Ramona 00 be chewed or crushed. (Same as: Protonix) Protonix 0 No Notes: [facility] 1-20 Tablet l 22:30: should not Ramona 00 be chewed or crushed. (Same as: Protonix) Protonix 0 No Notes: Mem[facility] 1-20 Tablet l 22:30: should not Dav 00 be chewed or crushed. (Same as: Protonix) Protonix 0 No Notes: [facility] 1-20 Tablet l 22:30: should not Dav 00 be chewed or crushed. (Same as: Protonix) Protonix 0 No Notes: Mem[facility] 1-20 Tablet l 22:30: should not Ramona 00 be chewed or crushed. (Same as: Protonix) Protonix 0 No Notes: Mem[facility] 1-20 Tablet l 22:30: should not Dav 00 be chewed or crushed. (Same as: Protonix) Protonix 0 No Notes: [facility] 1-20 Tablet l 22:30: should not Ramona 00 be chewed or crushed. (Same as: Protonix) Protonix 0 No Notes: Mem[facility] 1-20 Tablet l 22:30: should not Ramona 00 be chewed or crushed. (Same as: Protonix) Protonix 0 No Notes: Mem[facility] 1-20 Tablet l 22:30: should not Ramona 00 be chewed or crushed. (Same as: Protonix) Protonix 0 No Notes: Mem[facility] 1-20 Tablet l 22:30: should not Ramona 00 be chewed or crushed. (Same as: Protonix) Protonix 0 No Notes: [facility] 1-20 Tablet l 22:30: should not Ramona 00 be chewed or crushed. (Same as: Protonix) Thiamine 0 No Notes: Mem[facility] 1-20 (Same As: l 20:00: Vitamin Ramona 00 B1) Thiamine 0 No Notes: [facility] 1-20 (Same As: l 20:00: Vitamin Ramona 00 B1) Thiamine 2015-0 No Notes: [facility]oria 1-20 (Same As: l 20:00: Vitamin Dav 00 B1) Thiamine 0 No Notes: [facility]oria 1-20 (Same As: l 20:00: Vitamin Dav 00 B1) Thiamine 0 No Notes: [facility] 1-20 (Same As: l 20:00: Vitamin Dav 00 B1) Thiamine No Notes: Memoria 1-20 (Same As: l 20:00: Vitamin Ramona 00 B1) Thiamine No Notes: [facility] 1-20 (Same As: l 20:00: Vitamin Dav 00 B1) Thiamine No Notes: [facility] 1-20 (Same As: l 20:00: Vitamin Ramona 00 B1) Thiamine No Notes: [facility] 1-20 (Same As: l 20:00: Vitamin Ramona 00 B1) Thiamine No Notes: [facility]oria 1-20 (Same As: l 20:00: Vitamin Ramona 00 B1) Thiamine No Notes: [facility]oria 1-20 (Same As: l 20:00: Vitamin Dav 00 B1) Thiamine No Notes: Memoria 1-20 (Same As: l 20:00: Vitamin Ramona 00 B1) Thiamine No Notes: Memoria 1-20 (Same As: l 20:00: Vitamin Ramona 00 B1) Thiamine No Notes: [facility] 1-20 (Same As: l 20:00: Vitamin Ramona 00 B1) Thiamine No Notes: [facility]oria 1-20 (Same As: l 20:00: Vitamin Dav 00 B1) Thiamine No Notes: Memoria 1-20 (Same As: l 20:00: Vitamin Dav 00 B1) Folic Acid No Notes: Memor ia 1-20 (Same as: l 19:00: Folvite) Dav Folic Acid No Notes: Memor ia 1-20 (Same as: l 19:00: Folvite) Ramona Folic Acid No Notes: Memor ia 1-20 [...] 125 l IV 1,000 mL 18:38: ml/hr, Infuse over: 8 hr, Route: IV, [...] 30 day, Stop date: 10/18/15 12:37:00 Prinivil 2015-0 No Notes: Memoria 1-20 (Same as: l 15:00: Prinivil, Ramona 00 Zestril) Lovenox 2015-0 No Notes: Memoria 1-20 (Same as: l 15:00: Lovenox) Dav 00 hydrochloro No Notes: Henok vane thiazide 25 1-20 (Same as: l mg oral 15:00: Hydrodiuri Herm kailash tablet 00 l) With food. Prilosec No 40 mg, Memoria 1-20 Route: PO, l 15:00: Drug form: Dav DRC, Daily, Dosing Weight 160.909, kg, Start date: 09/18/15 9:00:00, Duration: 30 day, Stop date: 10/17/15 9:00:00 multivitami 2015-0 No 2 tab, Henok vane n 1-20 Route: l 15:00: CHEW, Ramona Dosing Weight 160.909, kg, BID, Start date: 09/18/15 9:00:00, Duration: 30 day, Stop date: 10/17/15 17:00:00 Hydrochloro No 1 tab, Henok vane thiazide 25 1-20 Route: PO, l MG / 15:00: Drug Form: Ramona Lisinopril 00 TAB, 20 MG Oral Dosing Tablet Weight 160.909, kg, Daily, Start date: 09/18/15 9:00:00, Duration: 30 day, Stop date: 10/17/15 9:00:00 Prinivil 0 No Notes: Memoria 1-20 (Same as: l 15:00: Prinivil, Dav Zestril) Lovenox No Notes: [facility]oria 1-20 (Same as: l 15:00: Lovenox) Ramona 00 hydrochloro No Notes: Henok vane thiazide [...] PO, l MG / 15:00: Drug Form: Ramona Lisinopril 00 TAB, 20 MG Oral Dosing Tablet Weight 160.909, kg, Daily, Start date: 09/18/15 9:00:00, Duration: 30 day, Stop date: 10/17/15 9:00:00 Prinivil No Notes: Memoria 1-20 (Same as: l 15:00: Prinivil, Ramona Zestril) Lovenox No Notes: [facility]oria 1-20 (Same as: l 15:00: Lovenox) Dav hydrochloro No Notes: Henok vane thiazide 25 1-20 (Same as: l mg oral 15:00: Hydrodiuri Herm kailash tablet 00 l) With food. Prilosec No 40 mg, Memoria 1-20 Route: PO, l 15:00: Drug form: Ramona 00 DRC, Daily, Dosing Weight 160.909, kg, Start date: 09/18/15 9:00:00, Duration: 30 day, Stop date: 10/17/15 9:00:00 multivitami 2015-0 No 2 tab, Henok vane n 1-20 Route: l 15:00: CHEW, Ramona 00 Dosing Weight 160.909, kg, BID, Start date: 09/18/15 9:00:00, Duration: 30 day, Stop date: 10/17/15 17:00:00 Hydrochloro 2015-0 No 1 tab, Henok vane thiazide 25 1-20 Route: PO, l MG / 15:00: Drug Form: Ramona Lisinopril 00 TAB, 20 MG Oral Dosing [...] vane n 1-20 Route: l 15:00: CHEW, Ramona 00 Dosing Weight 160.909, kg, BID, Start date: 09/18/15 9:00:00, Duration: 30 day, Stop date: 10/17/15 17:00:00 Hydrochloro No 1 tab, Henok vane thiazide 25 1-20 Route: PO, l MG / 15:00: Drug Form: Ramona Lisinopril 00 TAB, 20 MG Oral Dosing Tablet Weight 160.909, kg, Daily, Start date: 09/18/15 9:00:00, Duration: 30 day, Stop date: 10/17/15 9:00:00 Prinivil 0 No Notes: Memoria 1-20 (Same as: l 15:00: Prinivil, Ramona 00 Zestril) Lovenox No Notes: Memoria 1-20 (Same as: l 15:00: Lovenox) hydrochloro No Notes: Henok vane thiazide 25 1-20 (Same as: l mg oral 15:00: Hydrodiuri Herm akilash tablet 00 l) With food. Prilosec No 40 mg, Memoria 1-20 Route: PO, l 15:00: Drug form: Dav 00 DRC, Daily, Dosing Weight 160.909, kg, Start date: 09/18/15 9:00:00, Duration: 30 day, Stop date: 10/17/15 9:00:00 multivitami 2016-0 No 2 tab, Henok vane n 1-20 Route: l 15:00: CHEW, Ramona 00 Dosing Weight 160.909, kg, BID, Start [...] Memoria 1-20 (Same as: l 15:00: Prinivil, Ramona 00 Zestril) Lovenox 2015-0 No Notes: [facility] 1-20 (Same as: l 15:00: Lovenox) Ramona 00 hydrochloro 0 No Notes: Henok vane thiazide 25 1-20 (Same as: l mg oral 15:00: Hydrodiuri Herm kailash tablet 00 l) With food. Prilosec 2016- No 40 mg, Memoria 1-20 Route: PO, l 15:00: Drug form: Dav 00 DRC, Daily, Dosing Weight 160.909, kg, Start date: 09/18/15 9:00:00, Duration: 30 day, Stop date: 10/17/15 9:00:00 multivitami 2016-0 No 2 tab, Henok vane n 1-20 Route: l 15:00: CHEW, Ramona 00 Dosing Weight 160.909, kg, BID, Start date: 09/18/15 9:00:00, Duration: 30 day, Stop date: 10/17/15 17:00:00 Hydrochloro 2016-0 No 1 tab, Henok vane thiazide 25 1-20 Route: PO, l MG / 15:00: Drug Form: Ramona Lisinopril 00 TAB, 20 MG Oral Dosing Tablet Weight 160.909, kg, Daily, Start date: 09/18/15 9:00:00, Duration: 30 day, Stop date: 10/17/15 9:00:00 Prinivil No Notes: [facility] 1-20 (Same as: l 15:00: Prinivil, Ramona 00 Zestril) Lovenox No Notes: [facility] 1-20 (Same as: l 15:00: Lovenox) Ramona 00 hydrochloro No Notes: Henok vane thiazide [...] vane n 1-20 Route: l 15:00: CHEW, Ramona 00 Dosing Weight 160.909, kg, BID, Start [...] Memoria 1-20 (Same as: l 15:00: Lovenox) Ramona 00 hydrochloro No Notes: Henok vane thiazide 25 1-20 (Same as: l mg oral 15:00: Hydrodiuri Herm kailash tablet 00 l) With food. Prilosec No 40 mg, Memoria 1-20 Route: PO, l 15:00: Drug form: Ramona 00 DRC, Daily, Dosing Weight 160.909, kg, [...] PO, l MG / 15:00: Drug Form: Ramona Lisinopril 00 TAB, 20 MG Oral Dosing Tablet Weight 160.909, kg, Daily, Start date: 09/18/15 9:00:00, Duration: 30 day, Stop date: 10/17/15 9:00:00 Prinivil 2015-0 No Notes: [facility] 1-20 (Same as: l 15:00: Prinivil, Dav 00 Zestril) Lovenox 2015-0 No Notes: [facility] 1-20 (Same as: l 15:00: Lovenox) Dav 00 hydrochloro 0 No Notes: Henok vane thiazide 25 1-20 (Same as: l mg oral 15:00: Hydrodiuri Herm kailash tablet 00 l) With food. Prilosec 2016- No 40 mg, Memoria 1-20 Route: PO, l 15:00: Drug form: Ramona 00 DRC, Daily, Dosing Weight 160.909, kg, Start date: 09/18/15 9:00:00, Duration: 30 day, Stop date: 10/17/15 9:00:00 multivitami 2016-0 No 2 tab, Henok vane n 1-20 Route: l 15:00: CHEW, Ramona 00 Dosing Weight 160.909, kg, BID, Start [...] as: l 15:00: Prinivil, Dav 00 Zestril) Prinivil No Notes: Memoria 1-20 (Same as: l 15:00: Prinivil, Dav 00 Zestril) Lovenox No Notes: Memoria 1-20 (Same as: l 15:00: Lovenox) Ramona 00 hydrochloro No Notes: Henok vane thiazide 25 1-20 (Same as: l mg oral 15:00: Hydrodiuri Herm kailash tablet 00 l) With food. Prilosec 0 No 40 mg, Memoria 1-20 Route: PO, l 15:00: Drug form: Ramona 00 DRC, Daily, Dosing Weight 160.909, kg, [...] Duration: 30 day, Stop date: 10/17/15 9:00:00 Lovenox 2015-0 No Notes: Memoria 1-20 (Same as: l 15:00: Lovenox) Dav hydrochloro 2015-0 No Notes: Henok vane thiazide 25 1-20 (Same as: l mg oral 15:00: Hydrodiuri Herm kailash tablet 00 l) With food. Prilosec 0 No 40 mg, Memoria 1-20 Route: PO, l 15:00: Drug form: Dav DRC, Daily, Dosing Weight 160.909, kg, Start date: 09/18/15 9:00:00, Duration: 30 day, Stop date: 10/17/15 9:00:00 multivitami 2016-0 No 2 tab, Henok vane n 1-20 Route: l 15:00: CHEW, Ramona 00 Dosing Weight 160.909, kg, BID, Start date: 09/18/15 9:00:00, Duration: 30 day, Stop date: 10/17/15 17:00:00 Prinivil 2016-0 No Notes: Memoria 1-20 (Same as: l 15:00: Prinivil, Dav 00 Zestril) Lovenox No Notes: Memoria 1-20 (Same as: l 15:00: Lovenox) Dav 00 hydrochloro No Notes: Henko vane thiazide 25 1-20 (Same as: l mg oral 15:00: Hydrodiuri Herm kailash tablet 00 l) With food. Prilosec No 40 mg, Memoria 1-20 Route: PO, l 15:00: Drug form: Ramona 00 DRC, Daily, Dosing Weight 160.909, kg, Start date: 09/18/15 9:00:00, Duration: 30 day, Stop date: 10/17/15 9:00:00 multivitami 2015- No 2 tab, Henok vane n 1-20 Route: l 15:00: CHEW, Ramona 00 Dosing Weight 160.909, kg, BID, Start date: 09/18/15 9:00:00, Duration: 30 day, Stop date: 10/17/15 17:00:00 Hydrochloro No 1 tab, Henok vane thiazide 25 1-20 Route: PO, l MG / 15:00: Drug Form: Ramona Lisinopril 00 TAB, 20 MG Oral Dosing Tablet Weight 160.909, kg, Daily, Start date: 09/18/15 9:00:00, Duration: 30 day, Stop date: 10/17/15 9:00:00 Hydrochloro 0 No 1 tab, Henok vane thiazide 25 1-20 Route: PO, l MG / 15:00: Drug Form: Ramona Lisinopril 00 TAB, 20 MG Oral Dosing [...] vane n 1-20 Route: l 15:00: CHEW, Ramona 00 Dosing Weight 160.909, kg, BID, Start [...] Memoria 1-20 (Same as: l 15:00: Lovenox) Ramona 00 hydrochloro 2015-0 No Notes: Henok vane [...] PO, l MG / 15:00: Drug Form: Ramona Lisinopril 00 TAB, 20 MG Oral Dosing Tablet Weight 160.909, kg, Daily, Start date: 09/18/15 9:00:00, Duration: 30 day, Stop date: 10/17/15 9:00:00 Prinivil No Notes: Memoria 1-20 (Same as: l 15:00: Prinivil, Ramona 00 Zestril) Lovenox No Notes: Memoria 1-20 (Same as: l 15:00: Lovenox) Ramona 00 hydrochloro No Notes: Henok vane thiazide 25 1-20 (Same as: l mg oral 15:00: Hydrodiuri Herm kailash tablet 00 l) With food. Prilosec No 40 mg, Memoria 1-20 Route: PO, l 15:00: Drug form: Ramona 00 DRC, Daily, Dosing Weight 160.909, kg, Start date: 09/18/15 9:00:00, Duration: 30 day, Stop date: 10/17/15 9:00:00 multivitami No 2 tab, Henok vane n 1-20 Route: l 15:00: CHEW, Ramona 00 Dosing Weight 160.909, kg, BID, Start [...] Dav 00 XL) "Do Not Crush" Bupropion 0 No Notes: Memori a 1-20 (Same as: l 05:00: Wellbutrin Ramona 00 XL) "Do Not Crush" Bupropion 0 No Notes: Memori a 1-20 (Same as: l 05:00: Wellbutrin Ramona 00 XL) "Do Not Crush" Bupropion 2015-0 No Notes: Memori a 1-20 (Same as: l 05:00: Wellbutrin Ramona 00 XL) "Do Not Crush" Bupropion 2015-0 No Notes: Memori a 1-20 (Same as: l 05:00: Wellbutrin Ramona 00 XL) "Do Not Crush" Bupropion 2015-0 No Notes: Memori a 1-20 (Same as: l 05:00: Wellbutrin Ramona 00 XL) "Do Not Crush" Bupropion 0 No Notes: Memori a 1-20 (Same as: l 05:00: Wellbutrin Dav 00 XL) "Do Not Crush" Bupropion 2015-0 No Notes: Memori a 1-20 (Same as: l 05:00: Wellbutrin Dav 00 XL) "Do Not Crush" Bupropion 0 No Notes: Memori a 1-20 (Same as: l 05:00: Wellbutrin Dav 00 XL) "Do Not Crush" Bupropion 0 No Notes: Memori a 1-20 (Same as: l 05:00: Wellbutrin Ramona 00 XL) "Do Not Crush" Bupropion 2015-0 No Notes: Memori a 1-20 (Same as: l 05:00: Wellbutrin Dav 00 XL) "Do Not Crush" Bupropion 2015-0 No Notes: Memori a 1-20 (Same as: l 05:00: Wellbutrin Ramona 00 XL) "Do Not Crush" Bupropion 2015-0 No Notes: Memori a 1-20 (Same as: l 05:00: Wellbutrin Ramona 00 XL) "Do Not Crush" Bupropion No Notes: Memori a 1-20 (Same as: l 05:00: Wellbutrin Ramona 00 XL) "Do Not Crush" Bupropion No Notes: Memori a 1-20 (Same as: l 05:00: Wellbutrin Dav 00 XL) "Do Not Crush" Reglan No Notes: Memoria 1-20 (Same as: l 04:26: Reglan) Dav Acetaminoph No Notes: Do M emoria en 1-20 not exceed l 04:26: 4 gm/day. Ramona 00 (Same as: Tylenol) Ondansetron No Notes: Henok vane 1-20 (Same as: l 04:26: Zofran) Dav 00 MEDICATION WASTE Product Size: 4 mg Product Wasted: ___ mg Morphine No Notes: Memoria 1-20 (Same l 04:26: as:MORPhin Ramona 00 e Sulfate) Phenergan No Notes: Do Mem oria 1-20 not give l 04:26: IV push. Ramona 00 (Same as: Phenergan) Reglan No Notes: Memoria 1-20 (Same as: l 04:26: Reglan) Dav Acetaminoph No Notes: Do M emoria en 1-20 not exceed l 04:26: 4 gm/day. Ramona 00 (Same as: Tylenol) Ondansetron No Notes: Henok vane 1-20 (Same as: l 04:26: Zofran) Dav 00 MEDICATION WASTE Product Size: 4 mg Product Wasted: ___ mg Morphine No Notes: Memoria 1-20 (Same l 04:26: as:MORPhin Ramona 00 e Sulfate) Phenergan No Notes: Do Mem oria 1-20 not give l 04:26: IV push. Ramona 00 (Same as: Phenergan) Reglan No Notes: Memoria 1-20 (Same as: l 04:26: Reglan) Dav 00 Acetaminoph No Notes: Do M emoria en 1-20 not exceed l 04:26: 4 gm/day. Dav 00 (Same as: Tylenol) Ondansetron No Notes: Henok vane 1-20 (Same as: l 04:26: Zofran) Ramona 00 MEDICATION WASTE Product Size: 4 mg [...] 1-20 not exceed l 04:26: 4 gm/day. Ramona 00 (Same as: Tylenol) Ondansetron No Notes: Henok vane 1-20 (Same as: l 04:26: Zofran) Dav 00 MEDICATION WASTE Product Size: 4 mg Product Wasted: ___ mg Morphine No Notes: Memoria 1-20 (Same l 04:26: as:MORPhin Dav 00 e Sulfate) Phenergan No Notes: Do Mem oria 1-20 not give l 04:26: IV push. Ramona 00 (Same as: Phenergan) Reglan No Notes: Memoria 1-20 (Same as: l 04:26: Reglan) Ramona 00 Acetaminoph No Notes: Do M emoria en 1-20 not exceed l 04:26: 4 gm/day. Dav 00 (Same as: Tylenol) Ondansetron No Notes: Henok vane 1-20 (Same as: l 04:26: Zofran) Ramona 00 MEDICATION WASTE Product Size: 4 mg Product Wasted: ___ mg Morphine No Notes: Memoria 1-20 (Same l 04:26: as:MORPhin Ramona 00 e Sulfate) Phenergan No Notes: Do Mem oria 1-20 not give l 04:26: IV push. Ramona 00 (Same as: Phenergan) Reglan No Notes: Memoria 1-20 (Same as: l 04:26: Reglan) Ramona 00 Acetaminoph No Notes: Do M emoria en 1-20 not exceed l 04:26: 4 gm/day. Ramona 00 (Same as: Tylenol) Ondansetron No Notes: Henok vane 1-20 (Same as: l 04:26: Zofran) Dav 00 MEDICATION WASTE Product Size: 4 mg Product Wasted: ___ mg Morphine No Notes: Memoria 1-20 (Same l 04:26: as:MORPhin Dav 00 e Sulfate) Phenergan No Notes: Do Mem oria 1-20 not give l 04:26: IV push. Ramona 00 (Same as: Phenergan) Reglan No Notes: Memoria 1-20 (Same as: l 04:26: Reglan) Ramona 00 Acetaminoph No Notes: Do M emoria en 1-20 not exceed l 04:26: 4 gm/day. Dav 00 (Same as: Tylenol) Ondansetron No Notes: Henok vane 1-20 (Same as: l 04:26: Zofran) Ramona 00 MEDICATION WASTE Product Size: 4 mg Product Wasted: ___ mg Morphine No Notes: Memoria 1-20 (Same l 04:26: as:MORPhin Dav 00 e Sulfate) Phenergan No Notes: Do Mem oria 1-20 not give l 04:26: IV push. Ramona 00 (Same as: Phenergan) Reglan No Notes: Memoria 1-20 (Same as: l 04:26: Reglan) Ramona 00 Acetaminoph No Notes: Do M emoria en 1-20 not exceed l 04:26: 4 gm/day. Dav 00 (Same as: Tylenol) Ondansetron No Notes: Henok vane 1-20 (Same as: l 04:26: Zofran) Ramona 00 MEDICATION WASTE Product Size: 4 mg Product Wasted: ___ mg Morphine No Notes: Memoria 1-20 (Same l 04:26: as:MORPhin Dav 00 e Sulfate) Phenergan No Notes: Do Mem oria 1-20 not give l 04:26: IV push. Dav 00 (Same as: Phenergan) Reglan No Notes: Memoria 1-20 (Same as: l 04:26: Reglan) Ramona Acetaminoph No Notes: Do M emoria en 1-20 not exceed l 04:26: 4 gm/day. Dav 00 (Same as: Tylenol) Ondansetron No Notes: Henok vane 1-20 (Same as: l 04:26: Zofran) Dav 00 MEDICATION WASTE Product Size: 4 mg Product Wasted: ___ mg Morphine No Notes: Memoria 1-20 (Same l 04:26: as:MORPhin Ramona 00 e Sulfate) Phenergan No Notes: Do Mem oria 1-20 not give l 04:26: IV push. Dav 00 (Same as: Phenergan) Reglan No Notes: Memoria 1-20 (Same as: l 04:26: Reglan) Ramona Acetaminoph No Notes: Do M emoria en 1-20 not exceed l 04:26: 4 gm/day. Ramona 00 (Same as: Tylenol) Ondansetron No Notes: Henok vane 1-20 (Same as: l 04:26: Zofran) Ramona 00 MEDICATION WASTE Product Size: 4 mg Product Wasted: ___ mg Morphine No Notes: Memoria 1-20 (Same l 04:26: as:MORPhin Dav 00 e Sulfate) Phenergan No Notes: Do Mem oria 1-20 not give l 04:26: IV push. Ramona 00 (Same as: Phenergan) Reglan No Notes: Memoria 1-20 (Same as: l 04:26: Reglan) Dav 00 Acetaminoph No Notes: Do M emoria en 1-20 not exceed l 04:26: 4 gm/day. Dav 00 (Same as: Tylenol) Ondansetron No Notes: Henok vane 1-20 (Same as: l 04:26: Zofran) Ramona 00 MEDICATION WASTE Product Size: 4 mg Product Wasted: ___ mg Morphine No Notes: Memoria 1-20 (Same l 04:26: as:MORPhin Ramona 00 e Sulfate) Phenergan No Notes: Do Mem oria 1-20 not give l 04:26: IV push. Dav 00 (Same as: Phenergan) Reglan No Notes: Memoria 1-20 (Same as: l 04:26: Reglan) Ramona 00 Acetaminoph No Notes: Do M emoria en 1-20 not exceed l 04:26: 4 gm/day. Dav 00 (Same as: Tylenol) Ondansetron No Notes: Henok vane 1-20 (Same as: l 04:26: Zofran) Ramona 00 MEDICATION WASTE Product Size: 4 mg Product Wasted: ___ mg Morphine No Notes: Memoria 1-20 (Same l 04:26: as:MORPhin Ramona 00 e Sulfate) Phenergan No Notes: Do Mem oria 1-20 not give l 04:26: IV push. Ramona 00 (Same as: Phenergan) Reglan No Notes: Memoria 1-20 (Same as: l 04:26: Reglan) Ramona 00 Acetaminoph No Notes: Do M emoria en 1-20 not exceed l 04:26: 4 gm/day. Adv 00 (Same as: Tylenol) Ondansetron No Notes: Henok vane 1-20 (Same as: l 04:26: Zofran) Ramona 00 MEDICATION WASTE Product Size: 4 mg Product Wasted: ___ mg Morphine No Notes: Memoria 1-20 (Same l 04:26: as:MORPhin Ramona 00 e Sulfate) Phenergan No Notes: Do Mem oria 1-20 not give l 04:26: IV push. Dav 00 (Same as: Phenergan) Reglan No Notes: Memoria 1-20 (Same as: l 04:26: Reglan) Dav 00 Acetaminoph No Notes: Do M emoria en 1-20 not exceed l 04:26: 4 gm/day. Ramona 00 (Same as: Tylenol) Reglan No Notes: Memoria 1-20 (Same as: l 04:26: Reglan) Dav 00 Acetaminoph No Notes: Do M emoria en 1-20 not exceed l 04:26: 4 gm/day. Dav 00 (Same as: Tylenol) Ondansetron No Notes: Henok vane 1-20 (Same as: l 04:26: Zofran) Ramona 00 MEDICATION WASTE Product Size: 4 mg Product Wasted: ___ mg Morphine No Notes: Memoria 1-20 (Same l 04:26: as:MORPhin Dav 00 e Sulfate) Phenergan No Notes: Do Mem oria 1-20 not give l 04:26: IV push. Ramona 00 (Same as: Phenergan) Ondansetron No Notes: Henok vane 1-20 (Same as: l 04:26: Zofran) Dav 00 MEDICATION WASTE Product Size: 4 mg Product Wasted: ___ mg Morphine No Notes: Memoria 1-20 (Same l 04:26: as:MORPhin Ramona 00 e Sulfate) Phenergan No Notes: Do Mem oria 1-20 not give l 04:26: IV push. Dav 00 (Same as: Phenergan) Reglan No Notes: Memoria 1-20 (Same as: l 04:26: Reglan) Dav 00 Acetaminoph No Notes: Do M emoria en 1-20 not exceed l 04:26: 4 gm/day. Ramona 00 (Same as: Tylenol) Ondansetron No Notes: Henok vane 1-20 (Same as: l 04:26: Zofran) Ramona 00 MEDICATION WASTE Product Size: 4 mg Product Wasted: ___ mg Morphine 2015- No Notes: Memoria 1-20 (Same l 04:26: as:MORPhin Ramona 00 e Sulfate) Phenergan No Notes: Do Mem oria 1-20 not give l 04:26: IV push. Dav 00 (Same as: Phenergan) Zofran ODT No Notes: Memor ia 1-20 (Same as: l 04:25: Zofran Dav 00 ODT) Zofran ODT No Notes: Memor ia 1-20 (Same as: l 04:25: Zofran Ramona 00 ODT) Zofran ODT No Notes: Memor [...] ia 1-20 (Same as: l 04:25: Zofran Ramona 00 ODT) Zofran ODT No Notes: Memor ia 1-20 (Same as: l 04:25: Zofran Ramona 00 ODT) Zofran ODT No Notes: Memor ia 1-20 (Same as: l 04:25: Zofran Dav 00 ODT) Zofran ODT No Notes: Memor ia 1-20 (Same as: l 04:25: Zofran Dav 00 ODT) Zofran ODT No Notes: Memor ia 1-20 (Same as: l 04:25: Zofran Ramona 00 ODT) Zofran ODT No Notes: Memor ia 1-20 (Same as: l 04:25: Zofran Dav 00 ODT) Zofran ODT No Notes: Memor ia 1-20 (Same as: l 04:25: Zofran Dav 00 ODT) Zofran ODT 0 No Notes: Memor ia 1-20 (Same as: l 04:25: Zofran Dav 00 ODT) Zofran ODT No Notes: Memor ia 1-20 (Same as: l 04:25: Zofran Ramona 00 ODT) Zofran ODT No Notes: Memor ia 1-20 (Same as: l 04:25: Zofran Ramona 00 ODT) Metoclopram 2015- No Notes: Henok vane john 10 MG [...] as: l Oral Tablet 04:24: Reglan) Her lbanca [Reglan] 00 Take 30 min before meals [...] 1-20 Same as: l 0.09 04:23: Ventolin Ramona MG/ACTUAT 00 HFA Metered Dose Inhaler [Proventil] 200 ACTUAT 2016-0 No Notes: Memor ia Albuterol 1-20 Same as: l 0.09 04:23: Ventolin Ramona MG/ACTUAT 00 HFA Metered Dose Inhaler [Proventil] 200 ACTUAT 0 No Notes: Memor ia Albuterol 1-20 Same as: l 0.09 04:23: Ventolin Ramona MG/ACTUAT 00 HFA Metered Dose Inhaler [Proventil] [...] 1-20 Same as: l 0.09 04:23: Ventolin Ramona MG/ACTUAT 00 HFA Metered Dose Inhaler [Proventil] 200 ACTUAT 0 No Notes: Memor ia Albuterol 1-20 Same as: l 0.09 04:23: Ventolin Ramona MG/ACTUAT 00 HFA Metered Dose Inhaler [Proventil] 200 ACTUAT 0 No Notes: Memor ia Albuterol 1-20 Same as: l 0.09 04:23: Ventolin Dav MG/ACTUAT 00 HFA Metered Dose Inhaler [Proventil] 200 ACTUAT 0 No Notes: Memor ia Albuterol 1-20 Same as: l 0.09 04:23: Ventolin Ramona MG/ACTUAT 00 HFA Metered Dose Inhaler [Proventil] 200 ACTUAT 0 No Notes: Memor ia Albuterol 1-20 Same as: l 0.09 04:23: Ventolin Ramona MG/ACTUAT 00 HFA Metered Dose Inhaler [Proventil] [...] n 1mg l own 04:19: -Pt's own Ramona medication* 00 medication * , 1 mg, 1 tab, Drug form: MISC, Route: PO, ONCE, 09/17/15 22:19:00, Stop date: 09/17/15 22:19:00 Melatonin No Melatoni Memoria 1mg -Pt's 1-20 n 1mg l own 04:19: -Pt's own Ramona medication* 00 medication * , 1 mg, [...] n 1mg l own 04:19: -Pt's own Ramona medication* 00 medication * , 1 mg, [...] n 1mg l own 04:19: -Pt's own Ramona medication* 00 medication * , 1 mg, [...] n 1mg l own 04:19: -Pt's own Ramona medication* 00 medication * , 1 mg, 1 tab, Drug form: MISC, Route: PO, ONCE, 09/17/15 22:19:00, Stop date: 09/17/15 22:19:00 Melatonin No Melatoni Memoria 1mg -Pt's 1-20 n 1mg l own 04:19: -Pt's own Ramona medication* 00 medication * , 1 mg, [...] n 1mg l own 04:19: -Pt's own Ramona medication* 00 medication * , 1 mg, [...] a 1-20 Route: PO, l 04:12: ONCE, Ramona 00 Dosing Weight 160.909, kg, Start date: 09/17/15 22:12:00, Stop date: 09/17/15 22:12:00 Strattera 2016-0 No 80 mg, Memori a 1-20 Route: PO, l 04:12: ONCE, Ramona Dosing Weight 160.909, kg, Start date: 09/17/15 [...] 09/17/15 22:12:00, Stop date: 09/17/15 22:12:00 Melatonin No 1 mg, Memoria 1-20 Route: [...] Tablet 04:11: as:LaMICta Brigida nn l) Melatonin 2015-0 No 1 mg, Memoria [...] 09/17/15 22:11:00, Stop date: 09/17/15 22:11:00 lamotrigine 2015- No Notes: Henok vane 150 MG Oral [...] INHALATION l 0.09 04:10: , QID, PRN Ramona MG/ACTUAT 00 as needed Metered for Dose [...] INHALATION l 0.09 04:10: , QID, PRN Ramona MG/ACTUAT 00 as needed Metered for Dose wheezing, Inhaler 0 [Proventil] Refill(s) 200 ACTUAT Yes 2 puff, Henok vane Albuterol 1-20 INHALATION l 0.09 04:10: , QID, PRN Dav MG/ACTUAT 00 as needed Metered for Dose wheezing, Inhaler 0 [Proventil] Refill(s) 200 ACTUAT 2016-0 Yes 2 puff, Henok vane Albuterol 1-20 INHALATION l 0.09 04:10: , QID, PRN Dav MG/ACTUAT 00 as needed Metered for Dose wheezing, Inhaler 0 [Proventil] Refill(s) 200 ACTUAT 20160 Yes 2 puff, Henok vane Albuterol 1-20 INHALATION l 0.09 04:10: , QID, PRN Ramona MG/ACTUAT 00 as needed Metered for Dose wheezing, Inhaler 0 [Proventil] Refill(s) 200 ACTUAT 20160 Yes 2 puff, Henok vane Albuterol 1-20 INHALATION l 0.09 04:10: , QID, PRN Ramona MG/ACTUAT 00 as needed Metered for Dose wheezing, Inhaler 0 [Proventil] Refill(s) 200 ACTUAT 20160 Yes 2 puff, Henok vane Albuterol 1-20 INHALATION l 0.09 04:10: , QID, PRN Dav MG/ACTUAT 00 as needed Metered for Dose wheezing, Inhaler 0 [Proventil] Refill(s) 200 ACTUAT 20160 Yes 2 puff, Henok vane Albuterol 1-20 INHALATION l 0.09 04:10: , QID, PRN Ramona MG/ACTUAT 00 as needed Metered for Dose wheezing, Inhaler 0 [Proventil] Refill(s) 200 ACTUAT 20160 Yes 2 puff, Henok vane Albuterol 1-20 INHALATION l 0.09 04:10: , QID, PRN Dav MG/ACTUAT 00 as needed Metered for Dose wheezing, Inhaler 0 [Proventil] Refill(s) 200 ACTUAT 20160 Yes 2 puff, Henok vane Albuterol 1-20 INHALATION l 0.09 04:10: , QID, PRN Ramona MG/ACTUAT 00 as needed Metered for Dose wheezing, Inhaler 0 [Proventil] Refill(s) 200 ACTUAT 20160 Yes 2 puff, Henok vane Albuterol 1-20 INHALATION l 0.09 04:10: , QID, PRN Ramona MG/ACTUAT 00 as needed Metered for Dose wheezing, Inhaler 0 [Proventil] Refill(s) 200 ACTUAT 20160 Yes 2 puff, Henok vane Albuterol 1-20 INHALATION l 0.09 04:10: , QID, PRN Ramona MG/ACTUAT 00 as needed Metered for Dose [...] n 1-20 CHEW, BID, l 04:08: 0 Ramona 00 Refill(s) multivitami 20160 Yes 2 tab, Henok vane n 1-20 CHEW, BID, l 04:08: 0 Dav 00 Refill(s) multivitami 20160 Yes 2 tab, Henok vane n 1-20 CHEW, BID, l 04:08: 0 Ramona 00 Refill(s) multivitami 20160 Yes 2 tab, Henok vane n 1-20 CHEW, BID, l 04:08: 0 Ramona 00 Refill(s) multivitami 2016-0 Yes 2 tab, Henok vane n 1-20 CHEW, BID, l 04:08: 0 Dav 00 Refill(s) multivitami 2016-0 Yes 2 tab, Henok vane n 1-20 CHEW, BID, l 04:08: 0 Ramona 00 Refill(s) multivitami 2016-0 Yes 2 tab, Henok vane n 1-20 CHEW, BID, l 04:08: 0 Ramona 00 Refill(s) multivitami 2016-0 Yes 2 tab, Henok vane n 1-20 CHEW, BID, l 04:08: 0 Dav 00 Refill(s) multivitami 2016-0 Yes 2 tab, Henko vane n 1-20 CHEW, BID, l 04:08: [...] l 04:08: 0 Dav 00 Refill(s) Ondansetron 20160 Yes 8 mg [...] l hours oral 04:05: Q24H, 0 Herm akilash extended 00 Refill(s) release tablet buPROPion Yes [...] Refill(s) release tablet Reglan No Notes: Memoria -20 (Same as: l 03:49: Reglan) Dav Reglan No Notes: Memoria -20 (Same as: l 03:49: Reglan) Dav Reglan No Notes: Memoria 1-20 (Same as: l 03:49: Reglan) Ramona Reglan No Notes: Memoria 1-20 (Same as: l 03:49: Reglan) Dav Reglan No Notes: Memoria 1-20 (Same as: l 03:49: Reglan) Dav Reglan No Notes: Memoria 1-20 (Same as: l 03:49: Reglan) Dav Reglan No Notes: Memoria 1-20 (Same as: l 03:49: Reglan) Ramona Reglan No Notes: Memoria 1-20 (Same as: l 03:49: Reglan) Dav Reglan No Notes: Memoria 1-20 (Same as: l 03:49: Reglan) Ramona 00 Reglan No Notes: Memoria 1-20 (Same as: l 03:49: Reglan) Ramona Reglan No Notes: Memoria 1-20 (Same as: l 03:49: Reglan) Ramona Reglan No Notes: Memoria 1-20 (Same as: l 03:49: Reglan) Ramona Reglan No Notes: Memoria 1-20 (Same as: l 03:49: Reglan) Dav Reglan No Notes: Memoria 1-20 (Same as: l 03:49: Reglan) Ramona Reglan No Notes: Memoria 1-20 (Same as: l 03:49: Reglan) Dav Reglan No Notes: Memoria 1-20 (Same as: l 03:49: Reglan) Ramona Ondansetron No Notes: Henok vane 4 MG [...] 0.9% 1-20 (Same as: l 00:07: BD Ramona 00 Posiflush) Ondansetron No Notes: Henok vane [...] 0.9% 1-20 (Same as: l 00:07: BD Ramona 00 Posiflush) Ondansetron No Notes: Henok vane [...] 0.9% 1-20 (Same as: l 00:07: BD Ramona 00 Posiflush) Ondansetron No Notes: Henok vane 4 MG 1-20 (Same as: l Disintegrat 00:07: Zofran Herm kailash ing Tablet 00 ODT) Saline No Notes: Memoria Flush 0.9% 1-20 (Same as: l 00:07: BD Ramona 00 Posiflush) Ondansetron No Notes: Henok vane 4 MG 1-20 (Same as: l Disintegrat 00:07: Zofran Herm kailash ing Tablet 00 ODT) Saline No Notes: Memoria Flush 0.9% 1-20 (Same as: l 00:07: BD Ramona 00 Posiflush) Ondansetron No Notes: Henok vane [...] 0.9% 1-20 (Same as: l 00:07: BD Ramona 00 Posiflush) Ondansetron No Notes: Henok vane [...] 0.9% 1-20 (Same as: l 00:07: BD Ramona 00 Posiflush) Ondansetron No Notes: Henok vane 4 MG 1-20 (Same as: l Disintegrat 00:07: Zofran Herm kailash ing Tablet 00 ODT) Saline No Notes: Memoria Flush 0.9% 1-20 (Same as: l 00:07: BD Dav 00 Posiflush) Ondansetron 2014-08 No 4 mg = 1 Me moria 4 MG 2-28 tab, PO, l Disintegrat 22:06: TID, Garrett n ing Tablet 00 Dissolve [Zofran] tab under tongue, X 1 day, # 12 tab, 0 Refill(s) Acetaminoph 2014-08 Yes 11.25 mL, M emoria en 20 MG/ML 2-28 PO, Q6H, # l / 22:06: 60 mL, 0 Ramona Hydrocodone 00 Refill(s) Bitartrate 0.667 MG/ML Oral [...] # l / 22:06: 60 mL, 0 Ramona Hydrocodone 00 Refill(s) Bitartrate 0.667 MG/ML Oral [...] # l / 22:06: 60 mL, 0 Ramona Hydrocodone 00 Refill(s) Bitartrate 0.667 MG/ML Oral [...] # l / 22:06: 60 mL, 0 Ramona Hydrocodone 00 Refill(s) Bitartrate 0.667 MG/ML Oral [...] # l / 22:06: 60 mL, 0 Ramona Hydrocodone 00 Refill(s) Bitartrate 0.667 MG/ML Oral [...] # l / 22:06: 60 mL, 0 Ramona Hydrocodone 00 Refill(s) Bitartrate 0.667 MG/ML Oral [...] # l / 22:06: 60 mL, 0 Ramona Hydrocodone 00 Refill(s) Bitartrate 0.667 MG/ML Oral [...] # l / 22:06: 60 mL, 0 Ramona Hydrocodone 00 Refill(s) Bitartrate 0.667 MG/ML Oral [...] # l / 22:06: 60 mL, 0 Ramona Hydrocodone 00 Refill(s) Bitartrate 0.667 MG/ML Oral [...] Memoria 2-28 Route: l 18:38: IVP, Drug Ramona 00 form: INJ, ONCE, Dosing Weight 162.273, kg, Priority: STAT, Start date: 08/26/15 12:38:00, Stop date: 08/26/15 12:38:00 Morphine 2014- No 6 mg, Memoria 2-28 Route: l 18:38: IVP, Drug Ramona 00 form: INJ, ONCE, Dosing Weight 162.273, kg, Priority: STAT, Start date: 08/26/15 12:38:00, Stop date: 08/26/15 12:38:00 Morphine 2014- No 6 mg, Memoria 2-28 Route: l 18:38: IVP, Drug Ramona 00 form: INJ, ONCE, Dosing Weight 162.273, kg, Priority: STAT, Start date: 08/26/15 12:38:00, Stop date: 08/26/15 12:38:00 Morphine 2014- No 6 mg, Memoria 2-28 Route: l 18:38: IVP, Drug Ramona 00 form: INJ, ONCE, Dosing Weight 162.273, kg, Priority: STAT, Start date: 08/26/15 12:38:00, Stop date: 08/26/15 12:38:00 Morphine 2014- No 6 mg, Memoria 2-28 Route: l 18:38: IVP, Drug Ramona 00 form: INJ, ONCE, Dosing Weight 162.273, [...] Memoria 2-28 Route: l 18:38: IVP, Drug Ramona 00 form: INJ, ONCE, Dosing Weight 162.273, kg, Priority: STAT, Start date: 08/26/15 12:38:00, Stop date: 08/26/15 12:38:00 Morphine 2014- No 6 mg, Memoria 2-28 Route: l 18:38: IVP, Drug Dav 00 form: INJ, ONCE, Dosing Weight 162.273, kg, Priority: STAT, Start date: 08/26/15 12:38:00, Stop date: 08/26/15 12:38:00 Morphine 2014- No 6 mg, Memoria 2-28 Route: l 18:38: IVP, Drug Ramona 00 form: INJ, ONCE, Dosing Weight 162.273, kg, Priority: STAT, Start date: 08/26/15 12:38:00, Stop date: 08/26/15 12:38:00 Morphine 2014- No 6 mg, Memoria 2-28 Route: l 18:38: IVP, Drug Dav 00 form: INJ, ONCE, Dosing Weight 162.273, kg, Priority: STAT, Start date: 08/26/15 12:38:00, Stop date: 08/26/15 12:38:00 Morphine 2014- No 6 mg, Memoria 2-28 Route: l 18:38: IVP, Drug Ramona 00 form: INJ, ONCE, Dosing Weight 162.273, kg, Priority: STAT, Start date: 08/26/15 12:38:00, Stop date: 08/26/15 12:38:00 Morphine 2014- No 6 mg, Memoria 2-28 Route: l 18:38: IVP, Drug Ramona 00 form: INJ, ONCE, Dosing Weight 162.273, kg, Priority: STAT, Start date: 08/26/15 12:38:00, Stop date: 08/26/15 12:38:00 Morphine 2015- No 6 mg, Memoria 2-28 Route: l [...] Memoria 2-28 Route: l 18:37: IVP, Drug Ramona 00 form: INJ, ONCE, Dosing Weight 162.273, kg, Priority: STAT, Start date: 08/26/15 12:37:00, Stop date: 08/26/15 12:37:00 Zofran 2014- No 4 mg, Memoria 2-28 Route: l 18:37: IVP, Drug Ramona 00 form: INJ, ONCE, Dosing Weight 162.273, [...] Memoria 2-28 Route: l 18:37: IVP, Drug Ramona 00 form: INJ, ONCE, Dosing Weight 162.273, [...] Memoria 2-28 Route: l 18:37: IVP, Drug Ramona 00 form: INJ, ONCE, Dosing Weight 162.273, kg, Priority: STAT, Start date: 08/26/15 12:37:00, Stop date: 08/26/15 12:37:00 Zofran 2014-08 No 4 mg, Memoria 2-28 Route: l 18:37: IVP, Drug Ramona 00 form: INJ, ONCE, Dosing Weight 162.273, kg, Priority: STAT, Start date: 08/26/15 12:37:00, Stop date: 08/26/15 12:37:00 Zofran 2014-08 No 4 mg, Memoria 2-28 Route: l 18:37: IVP, Drug Dav 00 form: INJ, ONCE, Dosing Weight 162.273, kg, Priority: STAT, Start date: 08/26/15 12:37:00, Stop date: 08/26/15 12:37:00 Zofran 2015-1 No 4 mg, Memoria 2-28 Route: l [...] Chloride 2-28 1,000 l 0.154 16:47: ml/hr, Ramona MEQ/ML 00 Infuse Injectable Over: 1 Solution [...] Chloride 2-28 1,000 l 0.154 16:47: ml/hr, Ramona MEQ/ML 00 Infuse Injectable Over: 1 Solution [...] Chloride 2-28 1,000 l 0.154 16:47: ml/hr, Adv MEQ/ML 00 Infuse Injectable Over: 1 Solution [...] Chloride 2-28 1,000 l 0.154 16:47: ml/hr, Ramona MEQ/ML 00 Infuse Injectable Over: 1 Solution [...] Chloride 2-28 1,000 l 0.154 16:47: ml/hr, Ramona MEQ/ML 00 Infuse Injectable Over: 1 Solution [...] Chloride 2-28 1,000 l 0.154 16:47: ml/hr, Ramona MEQ/ML 00 Infuse Injectable Over: 1 Solution Hour, Route: IV, ONCE, Priority: STAT, Dosing Weight 162.273 kg, Start date: 08/26/15 10:47:00, Duration: 1 doses or times, Stop date: 08/26/15 10:47:00 Reglan 2014-08 No Notes: Memoria 2-19 (Same as: l 06:00: Reglan) Ramona 00 Take 30 min before meals Reglan [...] Memoria 2-19 (Same as: l 06:00: Reglan) Ramona 00 Take 30 min before meals Reglan 2014-08 No Notes: Memoria 2-19 (Same as: l 06:00: Reglan) Ramona 00 Take 30 min before meals Reglan 2014-08 No Notes: Memoria 2-19 (Same as: l 06:00: Reglan) Dav 00 Take 30 min before meals Reglan 2014-08 No Notes: Memoria 2-19 (Same as: l 06:00: Reglan) Ramona 00 Take 30 min before meals Reglan 2014-08 No Notes: Memoria 2-19 (Same as: l 06:00: Reglan) Ramona 00 Take 30 min before meals Reglan 2014-08 No Notes: Memoria 2-19 (Same as: l 06:00: Reglan) Ramona 00 Take 30 min before meals Reglan 2014-08 No Notes: Memoria 2-19 (Same as: l 06:00: Reglan) Ramona 00 Take 30 min before meals Reglan 2014-08 No Notes: Memoria 2-19 (Same as: l 06:00: Reglan) Dav 00 Take 30 min before meals Reglan 2014-08 No Notes: Memoria 2-19 (Same as: l 06:00: Reglan) Ramona 00 Take 30 min before meals Reglan 2014-08 No Notes: Memoria 2-19 (Same as: l 06:00: Reglan) Ramona 00 Take 30 min before meals Reglan 2014-08 No Notes: Memoria 2-19 (Same as: l 06:00: Reglan) Dav 00 Take 30 min before meals Reglan 2014-08 No Notes: Memoria 2-19 (Same as: l 06:00: Reglan) Ramona 00 Take 30 min before meals Pepcid 2014-08 No Notes: Memoria 2-19 (Same as: l 03:00: Pepcid) Ramona 00 Pepcid 2014-08 No Notes: Memoria 2-19 [...] Memoria 2-19 (Same as: l 03:00: Pepcid) Ramona Pepcid 2014-08 No Notes: Memoria 2-19 (Same as: l 03:00: Pepcid) Dav 00 Pepcid 2014-08 No Notes: Memoria 2-19 (Same as: l 03:00: Pepcid) Ramona Pepcid 2014-08 No Notes: Memoria 2-19 (Same as: l 03:00: Pepcid) Dav 00 Pepcid 2014-08 No Notes: Memoria 2-19 (Same as: l 03:00: Pepcid) Ramona 00 Pepcid 2014-08 No Notes: Memoria 2-19 (Same as: l 03:00: Pepcid) Ramona 00 Pepcid 2014-08 No Notes: Memoria 2-19 (Same as: l 03:00: Pepcid) Dav Pepcid 2014-08 No Notes: Memoria 2-19 (Same as: l 03:00: Pepcid) Ramona Pepcid 2014-08 No Notes: Memoria 2-19 (Same as: l 03:00: Pepcid) Ramona Pepcid 2014-08 No Notes: Memoria 2-19 (Same as: l 03:00: Pepcid) Dav Acetaminoph 2014-08 No Notes: Do M emoria en 20 MG/ML 2-18 not exceed l / 17:48: 4gm/day of Ramona Hydrocodone 00 acetaminop Bitartrate hen. (Same 0.667 MG/ML as: Oral Zolvit) Solution Acetaminoph 2014-08 No Notes: Do M emoria en 20 MG/ML 2-18 not exceed l / 17:48: 4gm/day of Dav Hydrocodone 00 acetaminop Bitartrate hen. (Same 0.667 MG/ML as: Oral Zolvit) Solution Acetaminoph 2014-08 No Notes: Do M emoria en 20 MG/ML 2-18 not exceed l / 17:48: 4gm/day of Ramona Hydrocodone 00 acetaminop Bitartrate hen. (Same 0.667 MG/ML as: Oral Zolvit) Solution Acetaminoph 2014-08 No Notes: Do M emoria en 20 MG/ML 2-18 not exceed l / 17:48: 4gm/day of Ramona Hydrocodone 00 acetaminop Bitartrate hen. (Same 0.667 MG/ML as: Oral Zolvit) Solution Acetaminoph 2014-08 No Notes: Do M emoria en 20 MG/ML 2-18 not exceed l / 17:48: 4gm/day of Ramona Hydrocodone 00 acetaminop Bitartrate hen. (Same 0.667 [...] not exceed l / 17:48: 4gm/day of Ramona Hydrocodone 00 acetaminop Bitartrate hen. (Same 0.667 [...] not exceed l / 17:48: 4gm/day of Ramona Hydrocodone 00 acetaminop Bitartrate hen. (Same 0.667 MG/ML as: Oral Zolvit) Solution Acetaminoph 2014-08 No Notes: Do M emoria en 20 MG/ML 2-18 not exceed l / 17:48: 4gm/day of Ramona Hydrocodone 00 acetaminop Bitartrate hen. (Same 0.667 MG/ML as: Oral Zolvit) Solution Acetaminoph 2014-08 No Notes: Do M emoria en 20 MG/ML 2-18 not exceed l / 17:48: 4gm/day of Ramona Hydrocodone 00 acetaminop Bitartrate hen. (Same 0.667 MG/ML as: Oral Zolvit) Solution Acetaminoph 2014-08 No Notes: Do M emoria en 20 MG/ML 2-18 not exceed l / 17:48: 4gm/day of Dav Hydrocodone 00 acetaminop Bitartrate hen. (Same 0.667 MG/ML as: Oral Zolvit) Solution Acetaminoph 2014-08 No Notes: Do M emoria en 20 MG/ML 2-18 not exceed l / 17:48: 4gm/day of Ramona Hydrocodone 00 acetaminop Bitartrate hen. (Same 0.667 MG/ML as: Oral Zolvit) Solution Wellbutrin 2014-08 No Notes: Memor ia 2-18 (Same As: l 15:00: Wellbutrin Ramona 00 ) Prinivil 2014-08 No Notes: Memoria [...] polysacchar Hydrochloro 2014-08 No 1 tab, Henok avne thiazide 25 2-18 Route: PO, l MG / 15:00: Drug Form: Ramona Lisinopril 00 TAB, 20 MG Oral Dosing [...] ia 2-18 (Same As: l 15:00: Wellbutrin Ramona 00 ) Prinivil 2014-08 No Notes: Memoria 2-18 (Same as: l 15:00: Prinivil, Ramona 00 Zestril) hydrochloro 2014-08 No Notes: Henok [...] PO, l MG / 15:00: Drug Form: Ramona Lisinopril 00 TAB, 20 MG Oral Dosing Tablet Weight 168.636, kg, Daily, Start date: 08/16/15 9:00:00, Duration: 30 day, Stop date: 09/14/15 9:00:00 Wellbutrin 2014-08 No Notes: Memor ia 2-18 (Same As: l 15:00: Wellbutrin Dav 00 ) ivil 2014-08 No Notes: Memoria 2-18 (Same as: l 15:00: Prinivil, Ramona 00 Zestril) hydrochloro 2014-08 No Notes: Henok [...] PO, l MG / 15:00: Drug Form: Ramona Lisinopril 00 TAB, 20 MG Oral Dosing [...] PO, l MG / 15:00: Drug Form: Ramona Lisinopril 00 TAB, 20 MG Oral Dosing Tablet Weight 168.636, kg, Daily, Start date: 08/16/15 9:00:00, Duration: 30 day, Stop date: 09/14/15 9:00:00 Wellbutrin 2014-08 No Notes: Memor ia 2-18 (Same As: l 15:00: Wellbutrin Ramona 00 ) Prinivil 2014-08 No Notes: Memoria [...] PO, l MG / 15:00: Drug Form: Dva Lisinopril 00 TAB, 20 MG Oral Dosing [...] PO, l MG / 15:00: Drug Form: Ramona Lisinopril 00 TAB, 20 MG Oral Dosing Tablet Weight 168.636, kg, Daily, Start date: 08/16/15 9:00:00, Duration: 30 day, Stop date: 09/14/15 9:00:00 Wellbutrin 2014-08 No Notes: Memor ia 2-18 (Same As: l 15:00: Wellbutrin Ramona 00 ) ivil 2014-08 No Notes: Memoria 2-18 (Same as: l 15:00: Prinivil, Ramona 00 Zestril) hydrochloro 2014-08 No Notes: Henok [...] Memoria 2-18 (Same as: l 15:00: Prinivil, Ramona 00 Zestril) hydrochloro 2014-08 No Notes: Henok [...] PO, l MG / 15:00: Drug Form: Ramona Lisinopril 00 TAB, 20 MG Oral Dosing Tablet Weight 168.636, kg, Daily, Start date: 08/16/15 9:00:00, Duration: 30 day, Stop date: 09/14/15 9:00:00 Wellbutrin 2014-08 No Notes: Memor ia 2-18 (Same As: l 15:00: Wellbutrin Dav 00 ) Prinivil 2014-08 No Notes: Memoria 2-18 (Same as: l 15:00: Prinivil, Ramona 00 Zestril) hydrochloro 2014-08 No Notes: Henok [...] ia 2-18 (Same As: l 15:00: Wellbutrin ) ivil 2014-08 No Notes: Memoria 2-18 [...] PO, l MG / 15:00: Drug Form: Ramona Lisinopril 00 TAB, 20 MG Oral Dosing [...] PO, l MG / 15:00: Drug Form: Ramona Lisinopril 00 TAB, 20 MG Oral Dosing Tablet Weight 168.636, kg, Daily, Start date: 08/16/15 9:00:00, Duration: 30 day, Stop date: 09/14/15 9:00:00 Wellbutrin 2014-08 No Notes: Memor ia 2-18 (Same As: l 15:00: Wellbutrin Ramona 00 ) Prinivil 2014-08 No Notes: Memoria [...] PO, l MG / 15:00: Drug Form: Ramona Lisinopril 00 TAB, 20 MG Oral Dosing [...] PO, l MG / 15:00: Drug Form: Ramona Lisinopril 00 TAB, 20 MG Oral Dosing Tablet Weight 168.636, kg, Daily, Start date: 08/16/15 9:00:00, Duration: 30 day, Stop date: 09/14/15 9:00:00 Wellbutrin 2014-08 No Notes: Memor ia 2-18 (Same As: l 15:00: Wellbutrin Ramona 00 ) Prinivil 2014-08 No Notes: Memoria [...] ia 2-18 (Same As: l 15:00: Wellbutrin Ramona 00 ) Prinivil 2014-08 No Notes: Memoria [...] PO, l MG / 15:00: Drug Form: Ramona Lisinopril 00 TAB, 20 MG Oral Dosing Tablet Weight 168.636, kg, Daily, Start date: 08/16/15 9:00:00, Duration: 30 day, Stop date: 09/14/15 9:00:00 Reminder 2014-08 No Reminde Memoria to bring 2-18 r to bring l pt's own 06:00: pt's own Brigida nn med 00 med strattadam dobbins to pharmacy to pharmacy, 1, Drug [...] ia 2-18 (Same as: l 05:00: Lovenox) Ramona Enoxaparin 2014-08 No Notes: Memor ia 2-18 (Same as: l 05:00: Lovenox) Ramona Enoxaparin 2014-08 No Notes: Memor ia 2-18 (Same as: l 05:00: Lovenox) Ramona Enoxaparin 2014-08 No Notes: Memor ia 2-18 (Same as: l 05:00: Lovenox) Ramona Enoxaparin 2014-08 No Notes: Memor ia 2-18 (Same as: l 05:00: Lovenox) Ramona Enoxaparin 2014-08 No Notes: Memor ia 2-18 (Same as: l 05:00: Lovenox) Dav Enoxaparin 2014-08 No Notes: Memor ia 2-18 (Same as: l 05:00: Lovenox) Dav Enoxaparin 2014-08 No Notes: Memor ia 2-18 (Same as: l 05:00: Lovenox) Dav Enoxaparin 2014-08 No Notes: Memor ia 2-18 (Same as: l 05:00: Lovenox) Ramona Enoxaparin 2014-08 No Notes: Memor ia 2-18 (Same as: l 05:00: Lovenox) Dav Enoxaparin 2014-08 No Notes: Memor ia 2-18 (Same as: l 05:00: Lovenox) Dav Enoxaparin 2014-08 No Notes: Memor ia 2-18 (Same as: l 05:00: Lovenox) Ramona Enoxaparin 2014-08 No Notes: Memor ia 2-18 (Same as: l 05:00: Lovenox) Dav Enoxaparin 2014-08 No Notes: Memor ia 2-18 (Same as: l 05:00: Lovenox) Dav 00 Enoxaparin 2014-08 No Notes: Memor ia 2-18 (Same as: l 05:00: Lovenox) Ramona 00 Lamictal 2014-08 No Notes: Memoria 2-18 (Same l 03:00: as:LaMICta Ramona 00 l) Strattera 2014-08 No 80 mg, Memori a 2-18 Route: PO, l 03:00: Drug form: Ramona 00 CAP, Bedtime, Dosing Weight 168.636, kg, Start date: 08/15/15 21:00:00, Duration: 30 day, Stop date: 09/13/15 21:00:00 Famotidine 2014-08 No Notes: Memor ia 2-18 (Same as: l 03:00: Pepcid) Ramona 00 Can be dilute in 5-10cc NS IVP: Slow IV push over at least 2 minutes. Lamictal 2014-08 No Notes: Memoria 2-18 (Same l 03:00: as:LaMICta Ramona 00 l) Strattera 2014-08 No 80 mg, [...] Notes: Memoria 2-18 (Same l 03:00: as:LaMICta Ramona 00 l) Strattera 2014-08 No 80 mg, Memori a 2-18 Route: PO, l 03:00: Drug form: Ramona 00 CAP, Bedtime, Dosing Weight 168.636, kg, Start date: 08/15/15 21:00:00, Duration: 30 day, Stop date: 09/13/15 21:00:00 Famotidine 2014-08 No Notes: Memor ia 2-18 (Same as: l 03:00: Pepcid) Dav 00 Can be dilute in 5-10cc NS IVP: Slow IV push over at least 2 minutes. Lamictal 2014-08 No Notes: Memoria 2-18 (Same l 03:00: as:LaMICta Ramona 00 l) Strattera 2014-08 No 80 mg, Memori a 2-18 Route: PO, l 03:00: Drug form: Dav 00 CAP, Bedtime, Dosing Weight 168.636, kg, Start date: 08/15/15 21:00:00, Duration: 30 day, Stop date: 09/13/15 21:00:00 Famotidine 2014-08 No Notes: Memor ia 2-18 (Same as: l 03:00: Pepcid) Ramona 00 Can be dilute in 5-10cc NS IVP: Slow IV push over at least 2 minutes. Lamictal 2014-08 No Notes: Memoria 2-18 (Same l 03:00: as:LaMICta Ramona 00 l) Strattera 2014-08 No 80 mg, [...] ia 2-18 (Same as: l 03:00: Pepcid) Ramona 00 Can be dilute in 5-10cc NS [...] Notes: Memoria 2-18 (Same l 03:00: as:LaMICta Ramona 00 l) Strattera 2014-08 No 80 mg, Memori a 2-18 Route: PO, l 03:00: Drug form: Ramona 00 CAP, Bedtime, Dosing Weight 168.636, kg, Start date: 08/15/15 21:00:00, Duration: 30 day, Stop date: 09/13/15 21:00:00 Famotidine 2014-08 No Notes: Memor ia 2-18 (Same as: l 03:00: Pepcid) Ramona 00 Can be dilute in 5-10cc NS IVP: Slow IV push over at least 2 minutes. Lamictal 2014-08 No Notes: Memoria 2-18 (Same l 03:00: as:LaMICta Dav 00 l) Strattera 2014-08 No 80 mg, Memori a 2-18 Route: PO, l 03:00: Drug form: Ramona 00 CAP, Bedtime, Dosing Weight 168.636, kg, Start date: 08/15/15 21:00:00, Duration: 30 day, Stop date: 09/13/15 21:00:00 Famotidine 2014-08 No Notes: Memor ia 2-18 (Same as: l 03:00: Pepcid) Ramona 00 Can be dilute in 5-10cc NS IVP: Slow IV push over at least 2 minutes. Lamictal 2014-08 No Notes: Memoria 2-18 (Same l 03:00: as:LaMICta Ramona 00 l) Strattera 2014-08 No 80 mg, Memori a 2-18 Route: PO, l 03:00: Drug form: Dav 00 CAP, Bedtime, Dosing Weight 168.636, kg, Start date: 08/15/15 21:00:00, Duration: 30 day, Stop date: 09/13/15 21:00:00 Famotidine 2014-08 No Notes: Memor ia 2-18 (Same as: l 03:00: Pepcid) Ramona 00 Can be dilute in 5-10cc NS IVP: Slow IV push over at least 2 minutes. Lamictal 2014-08 No Notes: Memoria 2-18 (Same l 03:00: as:LaMICta Ramona 00 l) Strattera 2014-08 No 80 mg, Memori a 2-18 Route: PO, l 03:00: Drug form: Dav 00 CAP, Bedtime, Dosing Weight 168.636, kg, Start date: 08/15/15 21:00:00, Duration: 30 day, Stop date: 09/13/15 21:00:00 Famotidine 2014-08 No Notes: Memor ia 2-18 (Same as: l 03:00: Pepcid) Ramona 00 Can be dilute in 5-10cc NS IVP: Slow IV push over at least 2 minutes. Lamictal 2014-08 No Notes: Memoria 2-18 (Same l 03:00: as:LaMICta Dav 00 l) Strattera 2014-08 No 80 mg, Memori a 2-18 Route: PO, l 03:00: Drug form: Ramona 00 CAP, Bedtime, Dosing Weight 168.636, kg, Start date: 08/15/15 21:00:00, Duration: 30 day, Stop date: 09/13/15 21:00:00 Famotidine 2014-08 No Notes: Memor ia 2-18 (Same as: l 03:00: Pepcid) Ramona 00 Can be dilute in 5-10cc NS IVP: Slow IV push over at least 2 minutes. Lamictal 2014-08 No Notes: Memoria 2-18 (Same l 03:00: as:LaMICta Dav 00 l) Strattera 2014-08 No 80 mg, Memori a 2-18 Route: PO, l 03:00: Drug form: Ramona 00 CAP, Bedtime, Dosing Weight 168.636, kg, Start date: 08/15/15 21:00:00, Duration: 30 day, Stop date: 09/13/15 21:00:00 Famotidine 2014-08 No Notes: Memor ia 2-18 (Same as: l 03:00: Pepcid) Ramona 00 Can be dilute in 5-10cc NS IVP: Slow IV push over at least 2 minutes. Lamictal 2014-08 No Notes: Memoria 2-18 (Same l 03:00: as:LaMICta Ramona 00 l) Strattera 2014-08 No 80 mg, Memori a 2-18 Route: PO, l 03:00: Drug form: Dav 00 CAP, Bedtime, Dosing Weight 168.636, kg, Start date: 08/15/15 21:00:00, Duration: 30 day, Stop date: 09/13/15 21:00:00 Famotidine 2014-08 No Notes: Memor ia 2-18 (Same as: l 03:00: Pepcid) Ramona 00 Can be dilute in 5-10cc NS IVP: Slow IV push over at least 2 minutes. Lamictal 2014-08 No Notes: Memoria 2-18 (Same l 03:00: as:LaMICta Ramona 00 l) Strattera 2014-08 No 80 mg, [...] ia 2-18 (Same as: l 03:00: Pepcid) Ramona 00 Can be dilute in 5-10cc NS IVP: Slow IV push over at least 2 minutes. Lamictal 2014-08 No Notes: Memoria 2-18 (Same l 03:00: as:LaMICta Ramona l) Strattera 2014-08 No 80 mg, Memori a 2-18 Route: PO, l 03:00: Drug form: Ramona 00 CAP, Bedtime, Dosing Weight 168.636, kg, [...] 2-17 Enteral l Oral 19:00: feeds may Ramona Suspension 00 interfere [Carafate] with the absorption [...] 2-17 Enteral l Oral 19:00: feeds may Ramona Suspension 00 interfere [Carafate] with the absorption [...] 2-17 Enteral l Oral 19:00: feeds may Ramona Suspension 00 interfere [Carafate] with the absorption of this medication . Shake well. Take 1 hr before or 2 hrs after antacids, dairy pdt, minerals & meals. (Same As: Carafate) Sucralfate 2014-08 No Notes: Memor ia 100 MG/ML 2-17 Enteral l Oral 19:00: feeds may Ramona Suspension 00 interfere [Carafate] with the absorption of this medication . Shake well. Take 1 hr before or 2 hrs after antacids, dairy pdt, minerals & meals. (Same As: Carafate) Sucralfate 2014-08 No Notes: Memor ia 100 MG/ML 2-17 Enteral l Oral 19:00: feeds may Dva Suspension 00 interfere [Carafate] with the absorption of this medication . Shake well. Take 1 hr before or 2 hrs after antacids, dairy pdt, minerals & meals. (Same As: Carafate) Sucralfate 2014-08 No Notes: Memor ia 100 MG/ML 2-17 Enteral l Oral 19:00: feeds may Ramona Suspension 00 interfere [Carafate] with the absorption of this medication . Shake well. Take 1 hr before or 2 hrs after antacids, dairy pdt, minerals & meals. (Same As: Carafate) Sucralfate 2014-08 No Notes: Memor ia 100 MG/ML 2-17 Enteral l Oral 19:00: feeds may Ramona Suspension 00 interfere [Carafate] with the absorption [...] 2-17 Enteral l Oral 19:00: feeds may Ramona Suspension 00 interfere [Carafate] with the absorption [...] 2-17 Enteral l Oral 19:00: feeds may Ramona Suspension 00 interfere [Carafate] with the absorption [...] vane 2-17 (Same as: l 18:00: Zofran) Ramona 00 MEDICATION WASTE Product Size: 4 mg [...] vane 2-17 (Same as: l 18:00: Zofran) Ramona 00 MEDICATION WASTE Product Size: 4 mg [...] 2-17 Rate: 125 l 0.0014 16:34: ml/hr, Ramona MEQ/ML / 00 Infuse Potassium over: 8 Chloride hr, Route: 0.004 IV, Dosing MEQ/ML / Weight Sodium 168.864 Chloride kg, Total 0.103 Volume: MEQ/ML / 1,000, Sodium Start Lactate date: 0.028 08/15/15 MEQ/ML 10:34:00, Injectable Duration: Solution 30 day, Stop date: 09/14/15 10:33:00 Hydromorpho 2014-08 No 0.5 mg, Mem oria ne 2-17 0.5 mL, l 16:34: Route: IV, Ramona 00 Drug form: INJ, Q3H, Dosing Weight [...] 2-17 not exceed l 16:34: 4 gm/day. Ramona 00 (Same as: Tylenol) Metoprolol 2014-08 No [...] / 1,000, Sodium Start Lactate date: 0.028 12/17/15 MEQ/ML 10:34:00, Injectable Duration: Solution 30 day, [...] mL 2-17 Rate: 125 l 16:34: ml/hr, Ramona 00 Infuse over: 8 hr, Route: IV, [...] mL 2-17 Rate: 125 l 16:34: ml/hr, Dav 00 Infuse over: 8 hr, Route: IV, Dosing Weight 168.864 kg, Total Volume: 1,000, Start date: 08/15/15 10:34:00, Duration: 30 day, Stop date: 09/14/15 10:33:00 Promethazin 2014-08 No Notes: Henok vane e 2-17 (Same as: l 16:34: Phenergan) Acetaminoph 2014-08 No Notes: Do M emoria en 2-17 not exceed l 16:34: 4 gm/day. Ramona 00 (Same as: Tylenol) Metoprolol 2014-08 No [...] ia 2-17 (Same as: l 16:34: Lopressor) Ramona 00 Push over 2 minutes Calcium 2014-08 [...] 2-17 Rate: 125 l 0.0014 16:34: ml/hr, Ramona MEQ/ML / 00 Infuse Potassium over: 8 [...] 16:34: Phenergan) Acetaminoph 2014-08 No Notes: Do Corey rowana en 2-17 not exceed l 16:34: 4 gm/day. Ramona 00 (Same as: Tylenol) Metoprolol 2014-08 No Notes: Memor ia 2-17 (Same as: l 16:34: Lopressor) Push over 2 minutes Calcium 2014-08 No 1,000 mL, Memor ia Chloride 2-17 Rate: 125 l 0.0014 16:34: ml/hr, Ramona MEQ/ML / 00 Infuse Potassium over: 8 [...] 2-17 not exceed l 16:34: 4 gm/day. Ramona 00 (Same as: Tylenol) Metoprolol 2014-08 No [...] 2-17 0.5 mL, l 16:34: Route: IV, Ramona 00 Drug form: INJ, Q3H, Dosing Weight [...] 2-17 0.5 mL, l 16:34: Route: IV, Ramona 00 Drug form: INJ, Q3H, Dosing Weight [...] 2-17 Rate: 125 l 0.0014 16:34: ml/hr, Ramona MEQ/ML / 00 Infuse Potassium over: 8 [...] 2-17 not exceed l 16:34: 4 gm/day. Ramona 00 (Same as: Tylenol) Metoprolol 2014-08 No [...] Memor ia 2-17 Route: l 16:23: IVP, Ramona 00 Q2MIN, Dosing Weight 168.864, kg, PRN [...] moria e 2-17 Route: l 16:23: IVPB, Ramona 00 ONCE, Dosing Weight 168.864, kg, PRN Nausea & Vomiting, Start date: 08/15/15 10:23:00 Flumazenil 2014-08 No 0.2 mg, Henok vane 2-17 Route: l 16:23: IVP, PRN, Ramona 00 Dosing Weight 168.864, kg, PRN Benzodiaze [...] moria e 2-17 Route: l 16:23: IVPB, Ramona 00 ONCE, Dosing Weight 168.864, kg, PRN [...] Memor ia 2-17 Route: l 16:23: IVP, Ramona 00 Q2MIN, Dosing Weight 168.864, kg, PRN [...] 25 Memoria 2-17 microgram, l 16:23: Route: Ramona 00 IVP, Q5Min, Dosing Weight 168.864, kg, [...] moria e 2-17 Route: l 16:23: IVPB, Ramona 00 ONCE, Dosing Weight 168.864, kg, PRN Nausea & Vomiting, Start date: 08/15/15 10:23:00 Flumazenil 2014-08 No 0.2 mg, Henok vane 2-17 Route: l 16:23: IVP, PRN, Ramona 00 Dosing Weight 168.864, kg, PRN Benzodiaze pine Reversal, Initial dose, Start date: 08/15/15 10:23:00, Duration: 30 day, Stop date: 09/14/15 10:22:00 Fentanyl 2014- No 25 Memoria 2-17 microgram, l 16:23: Route: Ramona 00 IVP, Q5Min, Dosing Weight 168.864, kg, PRN Pain Score 4-6, Start date: 08/15/15 10:23:00, Duration: 4 doses or times, Stop date: Limited # of times Hydromorpho 2014-08 No 0.5 mg, Mem oria ne 2-17 Route: l 16:23: IVP, Ramona 00 Q5Min, Dosing Weight 168.864, kg, PRN Pain Score 7-10, Start date: 08/15/15 10:23:00, Duration: 4 doses or times, Stop date: Limited # of times Naloxone 2014-08 No 0.04 mg, Memor ia 2-17 Route: l 16:23: IVP, Ramona 00 Q2MIN, Dosing Weight 168.864, kg, PRN [...] vane 2-17 Route: l 16:23: IVP, PRN, Ramona 00 Dosing Weight 168.864, kg, PRN Benzodiaze pine Reversal, Initial dose, Start date: 08/15/15 10:23:00, Duration: 30 day, Stop date: 09/14/15 10:22:00 Fentanyl 2014- No 25 Memoria 2-17 microgram, l 16:23: Route: Ramona 00 IVP, Q5Min, Dosing Weight 168.864, kg, PRN Pain Score 4-6, Start date: 08/15/15 10:23:00, Duration: 4 doses or times, Stop date: Limited # of times Hydromorpho 2014-08 No 0.5 mg, Mem oria ne 2-17 Route: l 16:23: IVP, Ramona 00 Q5Min, Dosing Weight 168.864, kg, PRN Pain Score 7-10, Start date: 08/15/15 10:23:00, Duration: 4 doses or times, Stop date: Limited # of times Naloxone 2014-08 No 0.04 mg, Memor ia 2-17 Route: l 16:23: IVP, Ramona 00 Q2MIN, Dosing Weight 168.864, kg, PRN Narcotic Reversal, Start date: 08/15/15 10:23:00, Duration: 8 doses or times, Stop date: Limited # of times Ondansetron 2014-08 No 4 mg, Memor ia 2-17 Route: l 16:23: IVP, ONCE, Ramona 00 Dosing Weight 168.864, kg, PRN Nausea & Vomiting, Start date: 08/15/15 10:23:00 Promethazin 2014-08 No 6.25 mg, Me moria e 2-17 Route: l 16:23: IVPB, Ramona 00 ONCE, Dosing Weight 168.864, kg, PRN Nausea & Vomiting, Start date: 08/15/15 10:23:00 Flumazenil 2014-08 No 0.2 mg, Henok vane 2-17 Route: l 16:23: IVP, PRN, Dav 00 Dosing Weight 168.864, kg, PRN Benzodiaze pine Reversal, Initial dose, Start date: 08/15/15 10:23:00, Duration: 30 day, Stop date: 09/14/15 10:22:00 Fentanyl 2014- No 25 Memoria 2-17 microgram, l 16:23: Route: Ramona 00 IVP, Q5Min, Dosing Weight 168.864, kg, [...] Memor ia 2-17 Route: l 16:23: IVP, Ramona 00 Q2MIN, Dosing Weight 168.864, kg, PRN Narcotic Reversal, Start date: 08/15/15 10:23:00, Duration: 8 doses or times, Stop date: Limited # of times Ondansetron 2014-08 No 4 mg, Memor ia 2-17 Route: l 16:23: IVP, ONCE, Ramona 00 Dosing Weight 168.864, kg, PRN Nausea [...] oria ne 2-17 Route: l 16:23: IVP, Ramona 00 Q5Min, Dosing Weight 168.864, kg, PRN Pain Score 7-10, Start date: 08/15/15 10:23:00, Duration: 4 doses or times, Stop date: Limited # of times Naloxone 2014-08 No 0.04 mg, Memor ia 2-17 Route: l 16:23: IVP, Ramona 00 Q2MIN, Dosing Weight 168.864, kg, PRN [...] moria e 2-17 Route: l 16:23: IVPB, Ramona 00 ONCE, Dosing Weight 168.864, kg, PRN [...] 25 Memoria 2-17 microgram, l 16:23: Route: Ramona 00 IVP, Q5Min, Dosing Weight 168.864, kg, [...] Memor ia 2-17 Route: l 16:23: IVP, Ramona 00 Q2MIN, Dosing Weight 168.864, kg, PRN Narcotic Reversal, Start date: 08/15/15 10:23:00, Duration: 8 doses or times, Stop date: Limited # of times Ondansetron 2014-08 No 4 mg, Memor ia 2-17 Route: l 16:23: IVP, ONCE, Ramona 00 Dosing Weight 168.864, kg, PRN Nausea & Vomiting, Start date: 08/15/15 10:23:00 Promethazin 2014-08 No 6.25 mg, Me moria e 2-17 Route: l 16:23: IVPB, Ramona 00 ONCE, Dosing Weight 168.864, kg, PRN Nausea & Vomiting, Start date: 08/15/15 10:23:00 Flumazenil 2014-08 No 0.2 mg, Henok vane 2-17 Route: l 16:23: IVP, PRN, Dosing Weight 168.864, kg, PRN Benzodiaze pine Reversal, Initial dose, Start date: 08/15/15 10:23:00, Duration: 30 day, Stop date: 09/14/15 10:22:00 Fentanyl 2014-08 No 25 Memoria 2-17 microgram, l 16:23: Route: Ramona 00 IVP, Q5Min, Dosing Weight 168.864, kg, PRN Pain Score 4-6, Start date: 08/15/15 10:23:00, Duration: 4 doses or times, Stop date: Limited # of times Hydromorpho 2014-08 No 0.5 mg, Mem oria ne 2-17 Route: l 16:23: IVP, Ramona 00 Q5Min, Dosing Weight 168.864, kg, PRN Pain Score 7-10, Start date: 08/15/15 10:23:00, Duration: 4 doses or times, Stop date: Limited # of times Naloxone 2014-08 No 0.04 mg, Memor ia 2-17 Route: l 16:23: IVP, Ramona 00 Q2MIN, Dosing Weight 168.864, kg, PRN Narcotic Reversal, Start date: 08/15/15 10:23:00, Duration: 8 doses or times, Stop date: Limited # of times Ondansetron 2014-08 No 4 mg, Memor ia 2-17 Route: l 16:23: IVP, ONCE, Dosing Weight 168.864, kg, PRN Nausea & Vomiting, Start date: 08/15/15 10:23:00 Promethazin 2014-08 No 6.25 mg, Me moria e 2-17 Route: l 16:23: IVPB, Ramona 00 ONCE, Dosing Weight 168.864, kg, PRN Nausea & Vomiting, Start date: 08/15/15 10:23:00 Flumazenil 2014-08 No 0.2 mg, Henok vane 2-17 Route: l 16:23: IVP, PRN, Dav 00 Dosing Weight 168.864, kg, PRN Benzodiaze pine Reversal, Initial dose, Start date: 08/15/15 10:23:00, Duration: 30 day, Stop date: 09/14/15 10:22:00 Fentanyl 2014-08 No 25 Memoria 2-17 microgram, l 16:23: Route: Ramona 00 IVP, Q5Min, Dosing Weight 168.864, kg, [...] Memor ia 2-17 Route: l 16:23: IVP, Ramona 00 Q2MIN, Dosing Weight 168.864, kg, PRN Narcotic Reversal, Start date: 08/15/15 10:23:00, Duration: 8 doses or times, Stop date: Limited # of times Ondansetron 2014-08 No 4 mg, Memor ia 2-17 Route: l 16:23: IVP, ONCE, Dosing Weight 168.864, kg, PRN Nausea & Vomiting, Start date: 08/15/15 10:23:00 Promethazin 2014-08 No 6.25 mg, Me moria e 2-17 Route: l 16:23: IVPB, Adv 00 ONCE, Dosing Weight 168.864, kg, PRN Nausea & Vomiting, Start date: 08/15/15 10:23:00 Flumazenil 2014-08 No 0.2 mg, Henok vane 2-17 Route: l 16:23: IVP, PRN, Ramona 00 Dosing Weight 168.864, kg, PRN Benzodiaze [...] 2014-08 No 0.5 mg, Mem oria ne 17 Route: l 16:23: IVP, Dav 00 Q5Min, Dosing Weight 168.864, kg, PRN Pain Score 7-10, Start date: 08/15/15 10:23:00, Duration: 4 doses or times, Stop date: Limited # of times Naloxone 2014-08 No 0.04 mg, Memor ia 10-16 Route: l 16:23: IVP, Dav 00 Q2MIN, [...] moria e 17 Route: l 16:23: IVPB, Dav 00 ONCE, Dosing Weight 168.864, kg, PRN Nausea & Vomiting, Start date: 08/15/15 10:23:00 Flumazenil 2014-08 No 0.2 mg, Henok vane 217 Route: l 16:23: IVP, PRN, Ramona 00 Dosing Weight 168.864, kg, PRN Benzodiaze pine Reversal, Initial dose, Start date: 08/15/15 10:23:00, Duration: 30 day, Stop date: 09/14/15 10:22:00 Fentanyl 2014- No 25 Memoria 2-17 microgram, l 16:23: Route: Ramona 00 IVP, Q5Min, Dosing Weight 168.864, kg, [...] moria e 2-17 Route: l 16:23: IVPB, Ramona 00 ONCE, Dosing Weight 168.864, kg, PRN Nausea & Vomiting, Start date: 08/15/15 10:23:00 Flumazenil 2014-08 No 0.2 mg, Henok vane 2-17 Route: l 16:23: IVP, PRN, Ramona 00 Dosing Weight 168.864, kg, PRN Benzodiaze pine Reversal, Initial dose, Start date: 08/15/15 10:23:00, Duration: 30 day, Stop date: 09/14/15 10:22:00 Fentanyl 2014- No 25 Memoria 2-17 microgram, l 16:23: Route: Ramona 00 IVP, Q5Min, Dosing Weight 168.864, kg, [...] ia 2-17 Route: l 16:23: IVP, ONCE, Ramona 00 Dosing Weight 168.864, kg, PRN Nausea [...] Memor ia 2-17 Route: l 16:23: IVP, Ramona 00 Q2MIN, Dosing Weight 168.864, kg, PRN Narcotic Reversal, Start date: 08/15/15 10:23:00, Duration: 8 doses or times, Stop date: Limited # of times Ondansetron 2014-08 No 4 mg, Memor ia 2-17 Route: l 16:23: IVP, ONCE, Ramona 00 Dosing Weight 168.864, kg, PRN Nausea [...] 25 Memoria 2-17 microgram, l 16:23: Route: Ramona 00 IVP, Q5Min, Dosing Weight 168.864, kg, PRN Pain Score 4-6, Start date: 08/15/15 10:23:00, Duration: 4 doses or times, Stop date: Limited # of times Hydromorpho 2014-08 No 0.5 mg, Mem oria ne 2-17 Route: l 16:23: IVP, Ramona 00 Q5Min, Dosing Weight 168.864, kg, PRN Pain Score 7-10, Start date: 08/15/15 10:23:00, Duration: 4 doses or times, Stop date: Limited # of times Calcium 2015-1 No 1,000 mL, Memor ia Chloride 2-17 Rate: 25 l 0.0014 13:59: ml/hr, Ramona MEQ/ML / 00 Infuse Potassium over: 40 Chloride hr, Route: 0.004 IV, Dosing MEQ/ML / Weight 170 Sodium kg, Total Chloride Volume: 0.103 1,000, MEQ/ML / Start Sodium date: Lactate 08/15/15 0.028 7:59:00, MEQ/ML Duration: Injectable 30 day, Solution Stop date: 09/14/15 7:58:00 Calcium 2014-08 No 1,000 mL, Memor ia Chloride 2-17 Rate: 25 l 0.0014 13:59: ml/hr, Ramona MEQ/ML / 00 Infuse Potassium over: 40 [...] 2-17 Rate: 25 l 0.0014 13:59: ml/hr, Ramona MEQ/ML / 00 Infuse Potassium over: 40 Chloride hr, Route: 0.004 IV, Dosing MEQ/ML / Weight 170 Sodium kg, Total Chloride Volume: 0.103 1,000, MEQ/ML / Start Sodium date: Lactate 08/15/15 0.028 7:59:00, MEQ/ML Duration: Injectable 30 day, Solution Stop date: 09/14/15 7:58:00 Calcium 2014-08 No 1,000 mL, Memor ia Chloride 2-17 Rate: 25 l 0.0014 13:59: ml/hr, Ramona MEQ/ML / 00 Infuse Potassium over: 40 Chloride hr, Route: 0.004 IV, Dosing MEQ/ML / Weight 170 Sodium kg, Total Chloride Volume: 0.103 1,000, MEQ/ML / Start Sodium date: Lactate 08/15/15 0.028 7:59:00, MEQ/ML Duration: Injectable 30 day, Solution Stop date: 09/14/15 7:58:00 Calcium 2014-08 No 1,000 mL, Memor ia Chloride 2-17 Rate: 25 l 0.0014 13:59: ml/hr, Ramona MEQ/ML / 00 Infuse Potassium over: 40 Chloride hr, Route: 0.004 IV, Dosing MEQ/ML / Weight 170 Sodium kg, Total Chloride Volume: 0.103 1,000, MEQ/ML / Start Sodium date: Lactate 08/15/15 0.028 7:59:00, MEQ/ML Duration: Injectable 30 day, Solution Stop date: 09/14/15 7:58:00 Calcium 2014-08 No 1,000 mL, Memor ia Chloride 2-17 Rate: 25 l 0.0014 13:59: ml/hr, Ramona MEQ/ML / 00 Infuse Potassium over: 40 Chloride hr, Route: 0.004 IV, Dosing MEQ/ML / Weight 170 Sodium kg, Total Chloride Volume: 0.103 1,000, MEQ/ML / Start Sodium date: Lactate 08/15/15 0.028 7:59:00, MEQ/ML Duration: Injectable 30 day, Solution Stop date: 09/14/15 7:58:00 Calcium 2014-08 No 1,000 mL, Memor ia Chloride 2-17 Rate: 25 l 0.0014 13:59: ml/hr, Dva MEQ/ML / 00 Infuse Potassium over: 40 Chloride hr, Route: 0.004 IV, Dosing MEQ/ML / Weight 170 Sodium kg, Total Chloride Volume: 0.103 1,000, MEQ/ML / Start Sodium date: Lactate 08/15/15 0.028 7:59:00, MEQ/ML Duration: Injectable 30 day, Solution Stop date: 09/14/15 7:58:00 Calcium 2014-08 No 1,000 mL, Memor ia Chloride 2-17 Rate: 25 l 0.0014 13:59: ml/hr, Ramona MEQ/ML / 00 Infuse Potassium over: 40 [...] 2-17 Rate: 25 l 0.0014 13:59: ml/hr, Ramona MEQ/ML / 00 Infuse Potassium over: 40 Chloride hr, Route: 0.004 IV, Dosing MEQ/ML / Weight 170 Sodium kg, Total Chloride Volume: 0.103 1,000, MEQ/ML / Start Sodium date: Lactate 08/15/15 0.028 7:59:00, MEQ/ML Duration: Injectable 30 day, Solution Stop date: 09/14/15 7:58:00 Calcium 2014-08 No 1,000 mL, Memor ia Chloride 2-17 Rate: 25 l 0.0014 13:59: ml/hr, Ramona MEQ/ML / 00 Infuse Potassium over: 40 Chloride hr, Route: 0.004 IV, Dosing MEQ/ML / Weight 170 Sodium kg, Total Chloride Volume: 0.103 1,000, MEQ/ML / Start Sodium date: Lactate 08/15/15 0.028 7:59:00, MEQ/ML Duration: Injectable 30 day, Solution Stop date: 09/14/15 7:58:00 Calcium 2014-08 No 1,000 mL, Memor ia Chloride 2-17 Rate: 25 l 0.0014 13:59: ml/hr, Ramona MEQ/ML / 00 Infuse Potassium over: 40 [...] Memoria 2-14 Same as: l 16:00: Emend Ramona 00 restricted to the Hematology /Oncology service for high and moderate emetogenic regimen according to ASCO Guidelines [place] [facility] Only for Chemothera py-Induced nausea & vomiting heparin 2014-08 No Notes: Memoria sodium, 2-14 porcine l porcine 16:00: heparin Ramona 2500 UNT/ML 00 Injectable Solution Cefazolin 2014-08 No Notes: Memori a 2-14 Same as: l 16:00: Ancef Ramona 00 Emend 2014-08 No Notes: Memoria 2-14 Same as: l 16:00: Emend Dav 00 restricted to the Hematology /Oncology service for high and moderate emetogenic regimen according to ASCO Guidelines [place] [facility] Only for Chemothera py-Induced nausea & vomiting heparin 2014-08 No Notes: Memoria sodium, 2-14 porcine l porcine 16:00: heparin Ramona 2500 UNT/ML 00 Injectable Solution Cefazolin 2014-08 No Notes: Memori a 2-14 Same as: l 16:00: Ancef Ramona 00 Emend 2014-08 No Notes: Memoria 2-14 Same as: l 16:00: Emend Dav 00 restricted to the Hematology /Oncology service for high and moderate emetogenic regimen according to ASCO Guidelines [place] Only for Chemothera py-Induced nausea & vomiting heparin 2014-08 No Notes: Memoria sodium, 2-14 porcine l porcine 16:00: heparin Ramona 2500 UNT/ML 00 Injectable Solution Cefazolin 2014-08 No Notes: Memori a 2-14 Same as: l 16:00: Ancef Ramona 00 Emend 2014-08 No Notes: Memoria 2-14 Same as: l 16:00: Emend Dav 00 restricted to the Hematology /Oncology service for high and moderate emetogenic regimen according to ASCO Guidelines [place] Only for Chemothera py-Induced nausea & vomiting heparin 2014-08 No Notes: Memoria sodium, 2-14 porcine l porcine 16:00: heparin Adv 2500 UNT/ML 00 Injectable Solution Cefazolin 2014-08 [...] sodium, 2-14 porcine l porcine 16:00: heparin Ramona 2500 UNT/ML 00 Injectable Solution Cefazolin 2014-08 No Notes: Memori a 2-14 Same as: l 16:00: Ancef Ramona 00 Emend 2014-08 No Notes: Memoria 2-14 [...] Memoria 2-14 Same as: l 16:00: Emend Ramona 00 restricted to the Hematology /Oncology service for high and moderate emetogenic regimen according to ASCO Guidelines [place] [facility] Only for Chemothera py-Induced nausea & vomiting heparin 2014-08 No Notes: Memoria sodium, 2-14 porcine l porcine 16:00: heparin Dav 2500 UNT/ML 00 Injectable Solution Cefazolin 2014-08 No Notes: Memori a 2-14 Same as: l 16:00: Ancef Dav 00 Emend 2014-08 No Notes: Memoria 2-14 Same as: l 16:00: Emend Ramona 00 restricted to the Hematology /Oncology service for high and moderate emetogenic regimen according to ASCO Guidelines [place] Only for Chemothera py-Induced nausea & vomiting heparin 2014-08 No Notes: Memoria sodium, 2-14 porcine l porcine 16:00: heparin Dav 2500 UNT/ML 00 Injectable Solution Cefazolin 2014-08 No Notes: Memori a 2-14 Same as: l 16:00: Ancef Ramona 00 Emend 2014-08 No Notes: Memoria 2-14 Same as: l 16:00: Emend Dav 00 restricted to the Hematology /Oncology service for high and moderate emetogenic regimen according to ASCO Guidelines [place] [facility] Only for Chemothera py-Induced nausea & vomiting heparin 2014-08 No Notes: Memoria sodium, 2-14 porcine l porcine 16:00: heparin Ramona 2500 UNT/ML 00 Injectable Solution Cefazolin 2014-08 [...] a 2-14 Same as: l 16:00: Ancef Ramona 00 Emend 2014-08 No Notes: Memoria 2-14 Same as: l 16:00: Emend Dav 00 restricted to the Hematology /Oncology service for high and moderate emetogenic regimen according to ASCO Guidelines [place] [facility] Only for Chemothera py-Induced nausea & vomiting heparin 2014-08 No Notes: Memoria sodium, 2-14 porcine l porcine 16:00: heparin Ramona 2500 UNT/ML 00 Injectable Solution Cefazolin 2014-08 [...] sodium, 2-14 porcine l porcine 16:00: heparin Ramona 2500 UNT/ML 00 Injectable Solution Cefazolin 2014-08 No Notes: Memori a 2-14 Same as: l 16:00: Ancef Ramona 00 Emend 2014-08 No Notes: Memoria 2-14 [...] a 2-14 Same as: l 16:00: Ancef Ramona 00 Emend 2014-08 No Notes: Memoria 2-14 Same as: l 16:00: Emend Dav 00 restricted to the Hematology /Oncology service for high and moderate emetogenic regimen according to ASCO Guidelines [place] Only for Chemothera py-Induced nausea & vomiting heparin 2014-08 No Notes: Memoria sodium, 2-14 porcine l porcine 16:00: heparin Ramona 2500 UNT/ML 00 Injectable Solution Cefazolin 2014-08 [...] l MG / 15:44: 30 tab, 0 Ramona Lisinopril 00 Refill(s) 20 MG Oral Tablet Melatonin 1 2014-08 Yes 1 mg = 1 Me moria mg oral 2-14 tab, PO, l tablet 15:44: Bedtime, Dav 00 PRN for insomnia, # 90 tab, 0 Refill(s) Depo-Dump Attendant 2014-08 Yes 150 mg = 1 Memoria [...] 2-14 tab, PO, l tablet 15:44: Bedtime, Ramona 00 PRN for insomnia, # 90 tab, 0 Refill(s) Depo-Dump Attendant 2014-08 Yes 150 mg = 1 Memoria [...] for insomnia, # 90 tab, 0 Refill(s) Depo-Dump Attendant 2014-08 Yes 150 mg = 1 Memoria a 2-14 mL, IM, l Contracepti 15:44: q3mo, # 1 H ermann ve 150 00 mL, 0 mg/mL Refill(s) intramuscul ar suspension Hydrochloro 2014-08 Yes 1 tab, PO, Memoria thiazide 25 2-14 Daily, # l MG / 15:44: 30 tab, 0 Ramona Lisinopril 00 Refill(s) 20 MG Oral Tablet Melatonin 2014-08 Yes 1 mg = 1 Me moria mg oral 2-14 tab, PO, l tablet 15:44: Bedtime, Ramona 00 PRN for insomnia, # 90 tab, 0 Refill(s) Depo-Dump Attendant 2014-08 Yes 150 mg = 1 Memoria [...] for insomnia, # 90 tab, 0 Refill(s) Depo-Dump Attendant 2014-08 Yes 150 mg = 1 Memoria [...] 2-14 tab, PO, l tablet 15:44: Bedtime, Ramona 00 PRN for insomnia, # 90 tab, 0 Refill(s) Depo-Dump Attendant 2014-08 Yes 150 mg = 1 Memoria [...] 2-14 tab, PO, l tablet 15:44: Bedtime, Ramona 00 PRN for insomnia, # 90 tab, 0 Refill(s) Depo-Dump Attendant 2014-08 Yes 150 mg = 1 Memoria a 2-14 mL, IM, l Contracepti 15:44: q3mo, # 1 H ermann ve 150 00 mL, 0 mg/mL Refill(s) intramuscul ar suspension Hydrochloro 2014-08 Yes 1 tab, PO, Memoria thiazide 25 2-14 Daily, # l MG / 15:44: 30 tab, 0 Ramona Lisinopril 00 Refill(s) 20 MG Oral Tablet Melatonin 2014-08 Yes 1 mg = 1 Me moria mg oral 2-14 tab, PO, l tablet 15:44: Bedtime, Ramona 00 PRN for insomnia, # 90 tab, 0 Refill(s) Depo-Dump Attendant 2014-08 Yes 150 mg = 1 Memoria a 2-14 mL, IM, l Contracepti 15:44: q3mo, # 1 H ermann ve 150 00 mL, 0 mg/mL Refill(s) intramuscul ar suspension Hydrochloro 2014-08 Yes 1 tab, PO, Memoria thiazide 25 2-14 Daily, # l MG / 15:44: 30 tab, 0 Ramona Lisinopril 00 Refill(s) 20 MG Oral Tablet Melatonin 2014-08 Yes 1 mg = 1 Me moria mg oral 2-14 tab, PO, l tablet 15:44: Bedtime, Dav 00 PRN for insomnia, # 90 tab, 0 Refill(s) Depo-Dump Attendant 2014-08 Yes 150 mg = 1 Memoria a 2-14 mL, IM, l Contracepti 15:44: q3mo, # 1 H ermann ve 150 00 mL, 0 mg/mL Refill(s) intramuscul ar suspension Hydrochloro 2014-08 Yes 1 tab, PO, Memoria thiazide 25 2-14 Daily, # l MG / 15:44: 30 tab, 0 Ramona Lisinopril 00 Refill(s) 20 MG Oral Tablet Melatonin 2014-08 Yes 1 mg = 1 Me moria mg oral 2-14 tab, PO, l tablet 15:44: Bedtime, Ramona 00 PRN for insomnia, # 90 tab, 0 Refill(s) Depo-Dump Attendant 2014-08 Yes 150 mg = 1 Memoria [...] for insomnia, # 90 tab, 0 Refill(s) Depo-Dump Attendant 2014-08 Yes 150 mg = 1 Memoria [...] 2-14 tab, PO, l tablet 15:44: Bedtime, Ramona 00 PRN for insomnia, # 90 tab, 0 Refill(s) Depo-Dump Attendant 2014-08 Yes 150 mg = 1 Memoria [...] 2-14 tab, PO, l tablet 15:44: Bedtime, Ramona 00 PRN for insomnia, # 90 tab, 0 Refill(s) Depo-Dump Attendant 2014-08 Yes 150 mg = 1 Memoria [...] 2-14 tab, PO, l tablet 15:44: Bedtime, Ramona 00 PRN for insomnia, # 90 tab, 0 Refill(s) Depo-Dump Attendant 2014-08 Yes 150 mg = 1 Memoria [...] for insomnia, # 90 tab, 0 Refill(s) Depo-Dump Attendant 2014-08 Yes 150 mg = 1 Memoria [...] for insomnia, # 90 tab, 0 Refill(s) Depo-Dump Attendant 2014-08 Yes 150 mg = 1 Memoria a 2-14 mL, IM, l Contracepti 15:44: q3mo, # 1 H ermann ve 150 00 mL, 0 mg/mL Refill(s) intramuscul ar suspension [id number] 2014-08 No 1,000 mL, Memori a 1,000 mL 2-14 Rate: 125 l 15:13: ml/hr, Ramona 00 Infuse over: 8 hr, Route: IV, Dosing Weight 175.909 kg, Total Volume: 1,000, Start date: 08/12/15 9:13:00, Duration: 4 day, Stop date: 08/16/15 9:12:00 72 HR 2014-08 No Notes: Memoria Scopolamine 2-14 Change l 0.0139 15:13: patch Dav MG/HR 00 every 72 Transdermal hours Patch (Same as: Transderm- Scop) [id number] 2014-08 No 1,000 mL, Memori a 1,000 mL 2-14 Rate: 125 l 15:13: ml/hr, Dav 00 Infuse over: 8 hr, Route: IV, Dosing Weight 175.909 kg, Total Volume: 1,000, Start date: 08/12/15 9:13:00, Duration: 4 day, Stop date: 08/16/15 9:12:00 72 HR 2014-08 No Notes: Memoria Scopolamine 2-14 Change l 0.0139 15:13: patch Ramona MG/HR 00 every 72 Transdermal hours Patch (Same as: Transderm- Scop) [id number] 2014-08 No 1,000 mL, Memori a 1,000 [...] Transdermal hours Patch (Same as: Transderm- Scop) [facility] 2014-08 No 1,000 mL, Memori a 1,000 mL 2-14 Rate: 125 l 15:13: ml/hr, Dav 00 Infuse over: 8 hr, Route: IV, Dosing Weight 175.909 kg, Total Volume: 1,000, Start date: 08/12/15 9:13:00, Duration: 4 day, Stop date: 08/16/15 9:12:00 72 HR 2014-08 No Notes: Memoria Scopolamine 2-14 Change l 0.0139 15:13: patch Ramona MG/HR 00 every 72 Transdermal hours Patch (Same as: Transderm- Scop) [id number] 2014-08 No 1,000 mL, Memori a 1,000 mL 2-14 Rate: 125 l 15:13: ml/hr, Ramona 00 Infuse over: 8 hr, Route: IV, Dosing Weight 175.909 kg, Total Volume: 1,000, Start date: 08/12/15 9:13:00, Duration: 4 day, Stop date: 08/16/15 9:12:00 72 HR 2014-08 No Notes: Memoria Scopolamine 2-14 Change l 0.0139 15:13: patch Ramona MG/HR 00 every 72 Transdermal hours Patch (Same as: Transderm- Scop) [id number] 2014-08 No 1,000 mL, Memori a 1,000 [...] Transdermal hours Patch (Same as: Transderm- Scop) [facility] 2014-08 No 1,000 mL, Memori [...] Transdermal hours Patch (Same as: Transderm- Scop) [facility] 2014-08 No 1,000 mL, Memori [...] Transdermal hours Patch (Same as: Transderm- Scop) [facility] 2014-08 No 1,000 mL, Memori [...] Transdermal hours Patch (Same as: Transderm- Scop) [id number] 2014-08 No 1,000 mL, Memori a 1,000 mL 2-14 Rate: 125 l 15:13: ml/hr, Dav 00 Infuse over: 8 hr, Route: IV, Dosing Weight 175.909 kg, Total Volume: 1,000, Start date: 08/12/15 9:13:00, Duration: 4 day, Stop date: 08/16/15 9:12:00 72 HR 2014-08 No Notes: Memoria Scopolamine 2-14 Change l 0.0139 15:13: patch Ramona MG/HR 00 every 72 Transdermal hours Patch (Same as: Transderm- Scop) [facility] 2014-08 No 1,000 mL, Memori a 1,000 mL 2-14 Rate: 125 l 15:13: ml/hr, Ramona 00 Infuse over: 8 hr, Route: IV, Dosing Weight 175.909 kg, Total Volume: 1,000, Start date: 08/12/15 9:13:00, Duration: 4 day, Stop date: 08/16/15 9:12:00 72 HR 2014-08 No Notes: Memoria Scopolamine 2-14 Change l 0.0139 15:13: patch Ramona MG/HR 00 every 72 Transdermal hours Patch (Same as: Transderm- Scop) [facility] 2014-08 No 1,000 mL, Memori a 1,000 mL 2-14 Rate: 125 l 15:13: ml/hr, Dav 00 Infuse over: 8 hr, Route: IV, Dosing Weight 175.909 kg, Total Volume: 1,000, Start date: 08/12/15 9:13:00, Duration: 4 day, Stop date: 08/16/15 9:12:00 72 HR 2014-08 No Notes: Memoria Scopolamine 2-14 Change l 0.0139 15:13: patch Ramona MG/HR 00 every 72 Transdermal hours Patch (Same as: Transderm- Scop) [id number] 2014-08 No 1,000 mL, Memori a 1,000 mL 2-14 Rate: 125 l 15:13: ml/hr, Ramona 00 Infuse over: 8 hr, Route: IV, Dosing Weight 175.909 kg, Total Volume: 1,000, Start date: 08/12/15 9:13:00, Duration: 4 day, Stop date: 08/16/15 9:12:00 72 HR 2014-08 No Notes: Memoria Scopolamine 2-14 Change l 0.0139 15:13: patch Dav MG/HR 00 every 72 Transdermal hours Patch (Same as: Transderm- Scop) [facility] 2014-08 No 1,000 mL, Memori a 1,000 mL 2-14 Rate: 125 l 15:13: ml/hr, Ramona 00 Infuse over: 8 hr, Route: IV, Dosing Weight 175.909 kg, Total Volume: 1,000, Start date: 08/12/15 9:13:00, Duration: 4 day, Stop date: 08/16/15 9:12:00 72 HR 2014-08 No Notes: Memoria Scopolamine 2-14 Change l 0.0139 15:13: patch Ramona MG/HR 00 every 72 Transdermal hours Patch (Same as: Transderm- Scop) [facility] 2014-08 No 1,000 mL, Memori a 1,000 mL 2-14 Rate: 125 l 15:13: ml/hr, Dav 00 Infuse over: 8 hr, Route: IV, Dosing Weight 175.909 kg, Total Volume: 1,000, Start date: 08/12/15 9:13:00, Duration: 4 day, Stop date: 08/16/15 9:12:00 72 HR 2014-08 No Notes: Memoria Scopolamine 2-14 Change l 0.0139 15:13: patch Ramona MG/HR 00 every 72 Transdermal hours Patch (Same as: Transderm- Scop) [facility] 2014-08 No 1,000 mL, Memori a 1,000 mL 2-14 Rate: 125 l 15:13: ml/hr, Ramona 00 Infuse over: 8 hr, Route: IV, Dosing Weight 175.909 kg, Total Volume: 1,000, Start date: 08/12/15 9:13:00, Duration: 4 day, Stop date: 08/16/15 9:12:00 72 HR 2014-08 No Notes: Memoria Scopolamine 2-14 Change l 0.0139 15:13: patch Ramona MG/HR 00 every 72 Transdermal hours Patch (Same as: Transderm- Scop) Naloxone 2014-08 No 0.1 mg, Memori a 0-12 Route: l 14:25: IVP, Ramona 00 Q2MIN, Dosing Weight 175.909, kg, PRN [...] Memori a 0-12 Route: l 14:25: IVP, Ramona 00 Q2MIN, Dosing Weight 175.909, kg, PRN Narcotic Reversal, Start date: 06/10/15 9:25:00, Duration: 4 doses or times, Stop date: Limited # of times Flumazenil 2014-08 No 0.1 mg, Henok vane 0-12 Route: l 14:25: IVP, Ramona 00 Q5Min, Dosing Weight 175.909, kg, PRN [...] Henok vane 0-12 Route: l 14:25: IVP, Ramona 00 Q5Min, Dosing Weight 175.909, kg, PRN Other -See Comment, Start date: 06/10/15 9:25:00, Duration: 30 day, Stop date: 07/10/15 8:24:00 Naloxone 2014- No 0.1 mg, Memori a 0-12 Route: l 14:25: IVP, Ramona 00 Q2MIN, Dosing Weight 175.909, kg, PRN Narcotic Reversal, Start date: 06/10/15 9:25:00, Duration: 4 doses or times, Stop date: Limited # of times Flumazenil 2014-08 No 0.1 mg, Henok vane 0-12 Route: l 14:25: IVP, Ramona 00 Q5Min, Dosing Weight 175.909, kg, PRN Other -See Comment, Start date: 06/10/15 9:25:00, Duration: 30 day, Stop date: 07/10/15 8:24:00 Naloxone 2014- No 0.1 mg, Memori a 0-12 Route: l 14:25: IVP, Ramona 00 Q2MIN, Dosing Weight 175.909, kg, PRN [...] Henok vane 0-12 Route: l 14:25: IVP, Ramona 00 Q5Min, Dosing Weight 175.909, kg, PRN [...] Memori a 0-12 Route: l 14:25: IVP, Ramona 00 Q2MIN, Dosing Weight 175.909, kg, PRN Narcotic Reversal, Start date: 06/10/15 9:25:00, Duration: 4 doses or times, Stop date: Limited # of times Flumazenil 2014-08 No 0.1 mg, Henok vane 0-12 Route: l 14:25: IVP, Ramona 00 Q5Min, Dosing Weight 175.909, kg, PRN [...] Henok vane 0-12 Route: l 14:25: IVP, Ramona 00 Q5Min, Dosing Weight 175.909, kg, PRN Other -See Comment, Start date: 06/10/15 9:25:00, Duration: 30 day, Stop date: 07/10/15 8:24:00 Naloxone 2014- No 0.1 mg, Memori a 0-12 Route: l 14:25: IVP, Dav 00 Q2MIN, Dosing Weight 175.909, kg, PRN Narcotic Reversal, Start date: 06/10/15 9:25:00, Duration: 4 doses or times, Stop date: Limited # of times Flumazenil 2014- No 0.1 mg, Ehnok vane 0-12 Route: l 14:25: IVP, Ramona 00 Q5Min, Dosing Weight 175.909, kg, PRN Other -See Comment, Start date: 06/10/15 9:25:00, Duration: 30 day, Stop date: 07/10/15 8:24:00 Naloxone 2014- No 0.1 mg, Memori a 0-12 Route: l 14:25: IVP, Ramona 00 Q2MIN, Dosing Weight 175.909, kg, PRN Narcotic Reversal, Start date: 06/10/15 9:25:00, Duration: 4 doses or times, Stop date: Limited # of times Flumazenil 2014-08 No 0.1 mg, Henok vane 0-12 Route: l 14:25: IVP, Ramona 00 Q5Min, Dosing Weight 175.909, kg, PRN Other -See Comment, Start date: 06/10/15 9:25:00, Duration: 30 day, Stop date: 07/10/15 8:24:00 Naloxone 2014-1 No 0.1 mg, Memori a 0-12 Route: l 14:25: IVP, Ramona 00 Q2MIN, Dosing Weight 175.909, kg, PRN [...] Memori a 0-12 Route: l 14:25: IVP, Ramona 00 Q2MIN, Dosing Weight 175.909, kg, PRN Narcotic Reversal, Start date: 06/10/15 9:25:00, Duration: 4 doses or times, Stop date: Limited # of times Flumazenil 2014- No 0.1 mg, Henok vane 0-12 Route: l 14:25: IVP, Ramona 00 Q5Min, Dosing Weight 175.909, kg, PRN [...] 0-12 Rate: 25 l 0.154 12:06: ml/hr, Ramona MEQ/ML 00 Infuse Injectable over: 40 Solution hr, Route: IV, Dosing Weight 175.909 kg, Total Volume: 1,000, Start date: 06/10/15 7:06:00, Duration: 30 day, Stop date: 07/10/15 7:05:00 Sodium 2014-1 No 1,000 mL, Memori a Chloride 0-12 Rate: 25 l 0.154 12:06: ml/hr, Ramona MEQ/ML 00 Infuse Injectable over: 40 Solution [...] 0-12 Rate: 25 l 0.154 12:06: ml/hr, Ramona MEQ/ML 00 Infuse Injectable over: 40 Solution [...] 0-12 Rate: 25 l 0.154 12:06: ml/hr, Ramona MEQ/ML 00 Infuse Injectable over: 40 Solution hr, Route: IV, Dosing Weight 175.909 kg, Total Volume: 1,000, Start date: 06/10/15 7:06:00, Duration: 30 day, Stop date: 07/10/15 7:05:00 Sodium 2015-1 No 1,000 mL, Memori a Chloride 0-12 Rate: 25 l 0.154 12:06: ml/hr, Ramona MEQ/ML 00 Infuse Injectable over: 40 Solution [...] 0-12 Rate: 25 l 0.154 12:06: ml/hr, Ramona MEQ/ML 00 Infuse Injectable over: 40 Solution [...] 0-12 Rate: 25 l 0.154 12:06: ml/hr, Ramona MEQ/ML 00 Infuse Injectable over: 40 Solution hr, Route: IV, Dosing Weight 175.909 kg, Total Volume: 1,000, Start date: 06/10/15 7:06:00, Duration: 30 day, Stop date: 07/10/15 7:05:00 Hydrochloro 2014-08 No 1 tab, PO, Memoria thiazide 25 0-09 Daily, # l MG / 19:35: 30 tab, 0 Ramona Lisinopril 00 Refill(s) 20 MG Oral Tablet oxcarbazepi 2014-08 Yes 600 mg = 2 Memoria ne 300 MG 0-09 tab, PO, l Oral Tablet 19:35: BID, # 120 Ramona [Trileptal] 00 tab, 0 Refill(s) Hydrochloro 2014-08 No 1 tab, PO, Memoria thiazide 25 0-09 Daily, # l MG / 19:35: 30 tab, 0 Ramona Lisinopril 00 Refill(s) 20 MG Oral Tablet oxcarbazepi 2014-08 Yes 600 mg = 2 Memoria ne 300 MG 0-09 tab, PO, l Oral Tablet 19:35: BID, # 120 Ramona [Trileptal] 00 tab, 0 Refill(s) Hydrochloro 2014-08 No 1 tab, PO, Memoria thiazide 25 0-09 Daily, # l MG / 19:35: 30 tab, 0 Dav Lisinopril 00 Refill(s) 20 MG Oral Tablet oxcarbazepi 2014-08 Yes 600 mg = 2 Memoria ne 300 MG 0-09 tab, PO, l Oral Tablet 19:35: BID, # 120 Ramona [Trileptal] 00 tab, 0 Refill(s) Hydrochloro 2014-08 No 1 tab, PO, Memoria thiazide 25 0-09 Daily, # l MG / 19:35: 30 tab, 0 Dav Lisinopril 00 Refill(s) 20 MG Oral Tablet oxcarbazepi 2014-08 Yes 600 mg = 2 Memoria ne 300 MG 0-09 tab, PO, l Oral Tablet 19:35: BID, # 120 Ramona [Trileptal] 00 tab, 0 Refill(s) Hydrochloro 2014-08 No 1 tab, PO, Memoria thiazide 25 0-09 Daily, # l MG / 19:35: 30 tab, 0 Dav Lisinopril 00 Refill(s) 20 MG Oral Tablet oxcarbazepi 2014-08 Yes 600 mg = 2 Memoria ne 300 MG 0-09 tab, PO, l Oral Tablet 19:35: BID, # 120 Ramona [Trileptal] 00 tab, 0 Refill(s) Hydrochloro 2014-08 No 1 tab, PO, Memoria thiazide 25 0-09 Daily, # l MG / 19:35: 30 tab, 0 Ramona Lisinopril 00 Refill(s) 20 MG Oral Tablet [...] l Oral Tablet 19:35: BID, # 120 Ramona [Trileptal] 00 tab, 0 Refill(s) Hydrochloro 2014-08 [...] l MG / 19:35: 30 tab, 0 Ramona Lisinopril 00 Refill(s) 20 MG Oral Tablet oxcarbazepi 2014-08 Yes 600 mg = 2 Memoria ne 300 MG 0-09 tab, PO, l Oral Tablet 19:35: BID, # 120 Dav [Trileptal] 00 tab, 0 Refill(s) Hydrochloro 2014-08 No 1 tab, PO, Memoria thiazide 25 0-09 Daily, # l MG / 19:35: 30 tab, 0 Ramona Lisinopril 00 Refill(s) 20 MG Oral Tablet oxcarbazepi 2014-08 Yes 600 mg = 2 Memoria ne 300 MG 0-09 tab, PO, l Oral Tablet 19:35: BID, # 120 Dav [Trileptal] 00 tab, 0 Refill(s) Hydrochloro 2014-08 No 1 tab, PO, Memoria thiazide 25 0-09 Daily, # l MG / 19:35: 30 tab, 0 Ramona Lisinopril 00 Refill(s) 20 MG Oral Tablet oxcarbazepi 2014-08 Yes 600 mg = 2 Memoria ne 300 MG 0-09 tab, PO, l Oral Tablet 19:35: BID, # 120 Ramona [Trileptal] 00 tab, 0 Refill(s) Hydrochloro 2014-08 No 1 tab, PO, Memoria thiazide 25 0-09 Daily, # l MG / 19:35: 30 tab, 0 Dav Lisinopril 00 Refill(s) 20 MG Oral Tablet oxcarbazepi 2014-08 Yes 600 mg = 2 Memoria ne 300 MG 0-09 tab, PO, l Oral Tablet 19:35: BID, # 120 Ramona [Trileptal] 00 tab, 0 Refill(s) Hydrochloro 2014-08 [...] l MG / 19:35: 30 tab, 0 Ramona Lisinopril 00 Refill(s) 20 MG Oral Tablet oxcarbazepi 2014-08 Yes 600 mg = 2 Memoria ne 300 MG 0-09 tab, PO, l Oral Tablet 19:35: BID, # 120 Ramona [Trileptal] 00 tab, 0 Refill(s) Hydrochloro 2014-08 No 1 tab, PO, Memoria thiazide 25 0-09 Daily, # l MG / 19:35: 30 tab, 0 Ramona Lisinopril 00 Refill(s) 20 MG Oral Tablet oxcarbazepi 2014-08 Yes 600 mg = 2 Memoria ne 300 MG 0-09 tab, PO, l Oral Tablet 19:35: BID, # 120 Ramona [Trileptal] 00 tab, 0 Refill(s) Hydrochloro 2014-08 No 1 tab, PO, Memoria thiazide 25 0-09 Daily, # l MG / 19:35: 30 tab, 0 Ramona Lisinopril 00 Refill(s) 20 MG Oral Tablet oxcarbazepi 2014-08 Yes 600 mg = 2 Memoria ne 300 MG 0-09 tab, PO, l Oral Tablet 19:35: BID, # 120 Ramona [Trileptal] 00 tab, 0 Refill(s) atomoxetine 2014-08 [...] 0 Memori a 0-09 Refill(s) l 19:31: Ramona 00 Wellbutrin 2014-08 Yes PO, 0 Memori [...] 0 Memori a 0-09 Refill(s) l 19:31: Ramona 00 Wellbutrin 2014-08 Yes PO, 0 Memori a 0-09 Refill(s) l 19:31: Ramona 00 Wellbutrin 2014-08 Yes PO, 0 Memori [...] DAILY BY MOUTH ONCE DAILY Immunizations Ordered Filled Immunization Date Status Comments [facility] e Immunization Name Name SARS-COV-2 COVID-19 2021-12-16 Completed Unive rsity of MODERNA 12+ YRS 00:00:00 [facility] ical VACCINE [place] SARS-COV-2 COVID-19 2021-12-16 Completed Unive rsity of MODERNA 12+ YRS 00:00:00 [facility] VACC[facility] Branch DAVIDE COVID-19 2021-04-05 Completed Methodis t AD26 VACCINATION 00:00:00 [facility] COVID-19 2021-04-05 Completed Methodis t AD26 VACCINATION 00:00:00 [facility] COVID-19 2021-04-05 Completed Methodis t AD26 VACCINATION 00:00:00 [facility] COVID-19 2021-04-05 Completed Methodis t AD26 VACCINATION 00:00:00 [facility] COVID-19 2021-04-05 Completed Methodis t AD26 VACCINATION 00:00:00 [facility] DAVIDE COVID-19 2021-04-05 Completed Methodis t AD26 VACCINATION 00:00:00 [facility] COVID-19 2021-04-05 Completed Methodis t AD26 VACCINATION 00:00:00 [facility] COVID-19 2021-04-05 Completed Methodis t AD26 VACCINATION 00:00:00 [facility] Flu Injectable MDCK 2020-06-03 Completed Unive rsity of Quadrivalent 00:00:00 [facility] Flu Injectable MDCK 2020-06-03 Completed Unive rsity of Quadrivalent 00:00:00 [facility] Flu Injectable MDCK 2019-07-10 Completed Unive rsity of Quadrivalent 00:00:00 [facility] Flu Injectable MDCK 2019-07-10 Completed Unive rsity of Quadrivalent 00:00:00 [facility] Influenza Virus 2018-05-30 Completed Universit y of Vaccine 00:00:00 [facility] Influenza Virus 2018-05-30 Completed Universit y of Vaccine 00:00:00 [facility] Flu Trivalent 2017-06-11 Completed University of 00:00:00 [facility] Flu Trivalent 2017-06-11 Completed University of 00:00:00 [facility] TDAP 2016-08-22 Completed University of 00:00:00 [facility] TDAP 2016-08-22 Completed University of 00:00:00 [facility] pneumococcal 2015-08-16 Completed Memorial Her blanca [...] Time Observation Value Comments Source Systolic blood 2023-01-19 15:48:00 151 mm[Hg] Univer sity of pressure [facility] Diastolic blood 2023-01-19 15:48:00 88 mm[Hg] Unive rsity of [facility] Heart rate 2023-01-19 15:48:00 59 /min [facility] Body temperature 2023-01-19 15:48:00 35.89 Gabrielle [facility] Respiratory rate 2023-01-19 15:48:00 18 /min [facility] Body height 2023-01-19 15:48:00 170.2 cm [facility] Body weight 2023-01-19 15:48:00 144.335 kg [facility] BMI 2023-01-19 15:48:00 49.84 kg/m2 [facility] Oxygen saturation in 2023-01-19 15:48:00 98 /min [facility] blood by [facility] Pulse oximetry Branch Systolic blood 2022-08-26 19:08:00 166 mm[Hg] Univer sity of pressure [facility] Diastolic blood 2022-08-26 19:08:00 99 mm[Hg] Unive rsity of pressure [facility] Heart rate 2022-08-26 19:08:00 77 /min Universi ty [facility] Body temperature 2022-08-26 19:08:00 37 Gabrielle [facility] Res[facility] rate 2022-08-26 19:08:00 18 /min [facility] Body height 2022-08-26 19:08:00 170.2 cm Universi ty [facility] Body weight 2022-08-26 19:08:00 147.419 kg Universi [facility] BMI 2022-08-26 19:08:00 50.90 kg/m2 [facility] Oxygen saturation in 2022-08-26 19:08:00 98 /min [facility] Arterial blood by [facility] Pulse oximetry Branch BP Diastolic 2022-04-08 00:00:00 90 mm[Hg] Faith Nicole edical Height 2022-04-08 00:00:00 66 [in_i] [facility] BMI (Body Mass 2022-04-08 00:00:00 53.7 kg/m2 [facility] BP Systolic 2022-04-08 00:00:00 142 mm[Hg] [facility] Body Weight 2022-04-08 00:00:00 333 [lb_av] [facility] BP Diastolic 2021-12-18 00:00:00 86 mm[Hg] [facility] Height 2021-12-18 00:00:00 66 [in_i] [facility] BMI (Body Mass 2021-12-18 00:00:00 54.7 kg/m2 [facility]) BP Systolic 2021-12-18 00:00:00 140 mm[Hg] [facility] Body Weight 2021-12-18 00:00:00 339 [lb_av] [facility] BP Diastolic 2021-11-25 00:00:00 88 mm[Hg] [facility] BP Systolic 2021-11-25 00:00:00 138 mm[Hg] [facility] Body Weight 2021-11-25 00:00:00 338 [lb_av] Faith Nicole ical Systolic blood 2022-06-12 02:38:00 128 mm[Hg] [facility] pressure Diastolic blood 2022-06-12 02:38:00 77 mm[Hg] [facility] pressure Heart rate 2022-06-12 02:38:00 63 /min [facility] Respiratory rate 2022-06-12 02:38:00 18 /min [facility] Oxygen saturation in 2022-06-12 02:38:00 97 /min [facility] Arterial blood by Pulse oximetry Body temperature 2022-06-11 23:40:00 36.5 Gabrielle [facility] Body height 2022-06-11 23:38:00 170.2 cm [facility] Body weight 2022-06-11 23:38:00 145.151 kg [facility] BMI 2022-06-11 23:38:00 50.12 kg/m2 [facility] Systolic (mm Hg) 2022-03-19 07:00:00 Henok ria Dav Diastolic (mm Hg) 2022-03-19 07:00:00 [facility] orial Dav Respitory Rate 2022-03-19 07:00:00 Memori al Ramona Heart Rate 2022-03-19 07:00:00 [facility] Height 2022-03-19 03:25:00 170.18 cm [facility] BMI Calculated 2022-03-19 03:25:00 Memori al Dav Weight 2022-03-19 03:25:00 [facility] Systolic (mm Hg) 2022-03-19 03:25:00 Henok rial Ramona Diastolic (mm Hg) 2022-03-19 03:25:00 Mem orial Dav Heart Rate 2022-03-19 03:25:00 [facility] Respitory Rate 2022-03-19 03:25:00 Memori al Dav Temperature Oral (F) 2022-03-19 03:25:00 98.4 F [facility] Temperature Oral (F) 2022-03-14 04:45:00 99.1 F [facility] Dav Heart Rate 2022-03-14 04:45:00 [facility] Respitory Rate 2022-03-14 04:45:00 Memori al Ramona Systolic (mm Hg) 2022-03-14 04:45:00 Henok rial Dav Diastolic (mm Hg) 2022-03-14 04:45:00 Mem orial Ramona Weight 2022-03-14 00:40:00 [facility] Systolic (mm Hg) 2022-03-14 00:40:00 Henok rial Dav Diastolic (mm Hg) 2022-03-14 00:40:00 Mem orial Dav Heart Rate 2022-03-14 00:40:00 [facility] Dav Respitory Rate 2022-03-14 00:40:00 Memori al Dav Temperature Oral (F) 2022-03-14 00:40:00 100 F [facility] Systolic (mm Hg) 2021-01-21 01:00:00 Henok rial Dav Diastolic (mm Hg) 2021-01-21 01:00:00 Mem orial Dav Heart Rate 2021-01-21 01:00:00 [facility] Dav Respitory Rate 2021-01-21 01:00:00 Memori al Dav Temperature Oral (F) 2021-01-21 01:00:00 98.5 F [facility] Height 2021-01-20 21:08:00 170.18 cm [facility] Dav BMI Calculated 2021-01-20 21:08:00 Memori al Dav Weight 2021-01-20 21:08:00 [facility] Systolic (mm Hg) 2021-01-20 21:08:00 Henok rial Dav Diastolic (mm Hg) 2021-01-20 21:08:00 Mem orial Dav Heart Rate 2021-01-20 21:08:00 [facility] Dav Respitory Rate 2021-01-20 21:08:00 Memori al [place] Temperature Oral (F) 2021-01-20 21:08:00 98.7 F [facility] Dav Weight 2015-09-19 21:05:00 [facility] Dav Temperature Oral (F) 2015-09-19 20:45:00 97.7 F [facility] Dav Systolic (mm Hg) 2015-09-19 20:45:00 Henok rial Ramona Diastolic (mm Hg) 2015-09-19 20:45:00 Mem orial Ramona Heart Rate 2015-09-19 20:45:00 [facility] Respitory Rate 2015-09-19 20:45:00 Memori al Dav Respitory Rate 2015-09-19 18:54:00 Memori al Dav Systolic (mm Hg) 2015-09-19 18:54:00 Henok rial Dav Diastolic (mm Hg) 2015-09-19 18:54:00 Mem orial Ramona Systolic (mm Hg) 2015-09-19 18:39:00 Henok rial Ramona Diastolic (mm Hg) 2015-09-19 18:39:00 Mem orial Dav Respitory Rate 2015-09-19 18:39:00 Memori al Dav Heart Rate 2015-09-19 18:04:00 [facility] Dav Temperature Oral (F) 2015-09-19 13:40:00 97.8 F [facility] Dav Heart Rate 2015-09-19 13:40:00 [facility] Dav Temperature Oral (F) 2015-09-19 11:08:00 97.9 F [facility] Dav Weight 2015-09-18 05:03:00 [facility] Dav Weight 2015-09-18 00:07:00 [facility] Dav Height 2015-09-18 00:07:00 170.18 cm [facility] Dav BMI Calculated 2015-09-18 00:07:00 Memori al Ramona Temperature Oral (F) 2015-08-26 22:06:00 98 F [facility] Dav Heart Rate 2015-08-26 22:06:00 [facility] Dav Respitory Rate 2015-08-26 22:06:00 Memori al Ramona Systolic (mm Hg) 2015-08-26 22:06:00 Henok rial Ramona Diastolic (mm Hg) 2015-08-26 22:06:00 Mem orial Dav Temperature Oral (F) 2015-08-26 20:46:00 98.0 F [facility] Dav Systolic (mm Hg) 2015-08-26 20:46:00 Henok rial Ramona Diastolic (mm Hg) 2015-08-26 20:46:00 Mem orial Ramona Respitory Rate 2015-08-26 20:46:00 Memori al Dav Heart Rate 2015-08-26 20:46:00 [facility] Weight 2015-08-26 16:38:00 [facility] BMI Calculated 2015-08-26 16:38:00 Memori al Dav Respitory Rate 2015-08-26 16:38:00 Memori al Dav Heart Rate 2015-08-26 16:38:00 [facility] Dav Systolic (mm Hg) 2015-08-26 16:38:00 Henok rial Dav Diastolic (mm Hg) 2015-08-26 16:38:00 Mem orial Dav Height 2015-08-26 16:38:00 170.18 cm [facility] Temperature Oral (F) 2015-08-26 16:38:00 97.9 F [facility] Systolic (mm Hg) 2015-08-16 18:33:00 Henok rial Ramona Diastolic (mm Hg) 2015-08-16 18:33:00 Mem orial Dav Heart Rate 2015-08-16 18:33:00 [facility] Dav Respitory Rate 2015-08-16 18:33:00 Memori al [place] Temperature Oral (F) 2015-08-16 18:33:00 97.9 F [facility] Dav Respitory Rate 2015-08-16 14:00:00 Memori al Dav Systolic (mm Hg) 2015-08-16 14:00:00 Henok rial Ramona Diastolic (mm Hg) 2015-08-16 14:00:00 Mem orial Dav Temperature Oral (F) 2015-08-16 14:00:00 98.0 F [facility] Heart Rate 2015-08-16 14:00:00 [facility] Temperature Oral (F) 2015-08-16 10:20:00 98.1 F [facility] Dav Heart Rate 2015-08-16 10:20:00 [facility] Systolic (mm Hg) 2015-08-16 10:20:00 Henok rial Ramona Diastolic (mm Hg) 2015-08-16 10:20:00 Mem orial Dav Respitory Rate 2015-08-16 10:20:00 Memori al Dav Height 2015-08-15 17:30:00 170.18 cm [facility] Weight 2015-08-15 17:30:00 [facility] Dav BMI Calculated 2015-08-15 17:30:00 Memori al Dav Weight 2015-08-15 12:45:00 [facility] Dav Height 2015-08-12 15:32:00 170.18 cm [facility] Weight 2015-08-12 15:32:00 [facility] BMI Calculated 2015-08-12 15:32:00 Memori al [facility] Respitory Rate 2015-06-10 14:07:00 Memori al Dav Systolic (mm Hg) 2015-06-10 14:07:00 Henok rial Ramona Diastolic (mm Hg) 2015-06-10 14:07:00 Mem orial Ramona Systolic (mm Hg) 2015-06-10 13:52:00 Henok rial Ramona Diastolic (mm Hg) 2015-06-10 13:52:00 Mem orial Ramona Respitory Rate 2015-06-10 13:52:00 Memori al Dav Systolic (mm Hg) 2015-06-10 13:37:00 Henok rial Ramona Diastolic (mm Hg) 2015-06-10 13:37:00 Mem orial Dav Respitory Rate 2015-06-10 13:37:00 Memori al Ramona Weight 2015-06-07 19:28:00 Rosemarie Dav BMI Calculated 2015-06-07 19:28:00 Memori al Dav Height 2015-06-07 19:28:00 170.18 cm [facility] Procedures Procedure Date / Time Performing Source Performed Clinician POCT TEST 2023-01-19 Fawad Aldrich [facility] 16:12:00 [facility] XR CHEST 2 VW 2022-08-26 [facility] 20:46:19 [facility] RAPID INFLUENZA A/B 2022-08-26 [facility] o f 19:56:00 [facility] COVID-19 (ID NOW RAPID TESTING) 2022-08-26 [facility] 19:56:00 [facility] NOTICE OF PRIVACY PRACTICES 2022-08-26 Doctor [facility] ersity of 18:35:53 Unassigned, No [facility] CONSENT/REFUSAL FOR DIAGNOSIS AND 2022-08-26 [facility] TREATMENT 18:35:08 Unassigned, No [facility] URINE CULTURE 2022-06-12 Shayne Menezes 02:11:00 [facility] URINALYSIS 2022-06-12 Shayne Menezes 02:11:00 [facility] HCG QUALITATIVE, URINE SCREEN 2022-06-12 Sh[facility]ne Menezes [facility] 02:11:00 [facility] INFLUENZA ANTIGEN 2022-06-12 Shayne Menezes 00:07:00 [facility] CBC WITH PLATELET AND DIFFERENTIAL 2022-06-12 Amaury Menezes 00:07:00 [facility] COMPREHENSIVE METABOLIC PANEL 2022-06-12 Shayne Menezes [facility] 00:07:00 [facility] ESTIMATED GFR 2022-06-12 Shayne Menezes 00:07:00 [facility] MANUAL DIFFERENTIAL 2022-06-12 Shayne Menezes 00:07:00 [facility] CBC WITH PLATELET AND DIFFERENTIAL 2022-06-12 Amaury Menezes 00:07:00 [facility] XR CHEST 1 VW 2022-06-11 Shayne Menezes 23:55:13 [facility] MRI PITUITARY W WO CONTRAST 2021-12-05 Kaycee Longo [facility] 16:05:12 [facility] MRI, pituitary, w/wo contrast 2021-11-27 [facility] 00:00:00 US PELVIC TRANSABDOMINAL 2021-11-[address] 07:30:53 [facility] US PELVIC TRANSVAGINAL 2021-11-09 Edin Lakhani 07:30:53 [facility] HCG QUALITATIVE, SERUM SCREEN 2021-11-09 [facility] 03:50:00 [facility] HC COMPLETE BLD COUNT W/AUTO DIFF 2021-11-09 Edin Lakhani 03:35:00 [facility] PROTHROMBIN TIME WITH INR 2021-11-09 Jack Lakhani ist 03:35:00 [facility] PARTIAL THROMBOPLASTIN TIME (PTT) 2021-11-09 Edin Lakhani 03:35:00 [facility] COMPREHENSIVE METABOLIC PANEL 2021-11-09 [facility] 03:35:00 [facility] ESTIMATED GFR 2021-11-09 Edin Lakhani 03:35:00 [facility] Gastric Bypass for Obesity 2014-08-30 [facility] 00:00:00 Cholecystectomy 2014-08-30 [facility] 00:00:00 Arthroscopy of knee<sup>1</sup> [facility] Memor ial [facility] Banding of gastric varices Memor ial [facility] Plan of Care Planned Activity Planned Date Details Comments Source Future Scheduled Test 2022-12-04 Hepatitis C Method [facility] 03:26:37 screening (procedure) [code = 031777797] Future Scheduled Test 2022-12-04 [facility] 03:26:37 malignant neoplasm of cervix (procedure) [code = 360249107] Future Scheduled Test 2022-12-04 COVID-19 VACCINE ([address] [place] [address] 03:26:37 - Booster for Davide series) [code = COVID-19 VACCINE (3 - Booster for Davide series)] Future Scheduled Test 2022-12-04 INFLUENZA VACCINE [facility] 03:26:37 [code = INFLUENZA VACCINE] Future Scheduled Test 2022-12-04 Hepatitis C Method [facility] 03:26:37 screening (procedure) [code = 946055198] Future Scheduled Test 2022-12-04 Screening for [facility] 03:26:37 malignant neoplasm of cervix (procedure) [code = 228770866] Future Scheduled Test 2022-12-04 COVID-19 VACCINE ([address] [place] [address] 03:26:37 - Booster for Davide series) [code = COVID-19 VACCINE (3 - Booster for Davide series)] Future Scheduled Test 2022-12-04 INFLUENZA VACCINE [facility] 03:26:37 [code = INFLUENZA VACCINE] Future Scheduled Test 2022-12-04 Hepatitis C Method [facility] 03:26:37 screening (procedure) [code = 849356727] Future Scheduled Test 2022-12-04 Screening for Metho [facility] 03:26:37 malignant neoplasm of cervix (procedure) [code = 275881882] Future Scheduled Test 2022-12-04 COVID-19 VACCINE ([address] [place] [address] 03:26:37 - Booster for Davide series) [code = COVID-19 VACCINE (3 - Booster for Davide series)] Future Scheduled Test 2022-12-04 INFLUENZA VACCINE [facility] 03:26:37 [code = INFLUENZA VACCINE] Future Scheduled Test 2022-12-04 Hepatitis C Method [facility] 03:26:37 screening (procedure) [code = 767106314] Future Scheduled Test 2022-12-04 [facility] 03:26:37 malignant neoplasm of cervix (procedure) [code = 808557108] Future Scheduled Test 2022-12-04 COVID-19 VACCINE ([address] [place] [address] 03:26:37 - Booster for Davide series) [code = COVID-19 VACCINE (3 - Booster for Dvaide series)] Future Scheduled Test 2022-12-04 INFLUENZA VACCINE [facility] 03:26:37 [code = INFLUENZA VACCINE] Future Scheduled Test 2022-12-04 Hepatitis C Method [facility] 03:26:37 screening (procedure) [code = 026759711] Future Scheduled Test 2022-12-04 Screening for [facility] 03:26:37 malignant neoplasm of cervix (procedure) [code = 772882419] Future Scheduled Test 2022-12-04 COVID-19 VACCINE ([address] [place] [address] 03:26:37 - Booster for Davide series) [code = COVID-19 VACCINE (3 - Booster for Davide series)] Future Scheduled Test 2022-12-04 INFLUENZA VACCINE [facility] 03:26:37 [code = INFLUENZA VACCINE] Future Scheduled Test 2022-10-17 Hepatitis C Method [facility] 21:28:36 screening (procedure) [code = 037657973] Future Scheduled Test 2022-10-17 [facility] 21:28:36 malignant neoplasm of cervix (procedure) [code = 475938840] Future Scheduled Test 2022-10-17 COVID-19 VACCINE ([address] [place] [address] 21:28:36 - Booster for Davide series) [code = COVID-19 VACCINE (3 - Booster for Davide series)] Future Scheduled Test 2022-10-17 INFLUENZA VACCINE [facility] 21:28:36 [code = INFLUENZA VACCINE] Future Scheduled Test 2022-10-17 Hepatitis C Method [facility] 21:28:36 screening (procedure) [code = 107280492] Future Scheduled Test 2022-10-17 [facility] 21:28:36 malignant neoplasm of cervix (procedure) [code = 148551031] Future Scheduled Test 2022-10-17 COVID-19 VACCINE ([address] [place] [address] 21:28:36 - Booster for Davide series) [code = COVID-19 VACCINE (3 - Booster for Davide series)] Future Scheduled Test 2022-10-17 INFLUENZA VACCINE [facility] 21:28:36 [code = INFLUENZA VACCINE] Future Scheduled Test 2022-10-17 Hepatitis C Method [facility] 21:28:36 screening (procedure) [code = 597067206] Future Scheduled Test 2022-10-17 Screening for [facility] 21:28:36 malignant neoplasm of cervix (procedure) [code = 004916405] Future Scheduled Test 2022-10-17 COVID-19 VACCINE (3 [facility] 21:28:36 - Booster for Davide series) [code = COVID-19 VACCINE (3 - Booster for Davide series)] Future Scheduled Test 2022-10-17 INFLUENZA VACCINE [facility] 21:28:36 [code = INFLUENZA VACCINE] Diagnostic Test 2021-12-18 unlisted lab [code [facility] Pending 00:00:00 = unlisted lab] Encounters Start End Encounter Admission Attending Care Care Encounter Source Date/Time Date/Time Type Type Clinicians Facility Department ID 2022-05-13 Outpatient [facility] [id number] [place] 08:18:57 [id number] [facility] 2022-05-07 Outpatient [facility] [id number] [place] 12:12:06 [id number] [facility] 2022-05-06 Outpatient [facility] [id number] [place] 07:02:43 [id number] [facility] 2022-03-26 Outpatient [facility] [id number] [place] 11:04:27 [id number] [facility] 2022-02-06 Outpatient [facility] [id number] [place] 09:50:06 [id number] [facility] 2021-11-28 Outpatient [facility] [id number] [place] 13:41:01 [id number] [facility] 2021-11-26 Outpatient [facility] [id number] [place] 12:18:16 [id number] [facility] 2021-11-24 Outpatient [facility] [id number] [place] 06:46:20 [id number] [facility] 2016-09-10 Inpatient [facility] [id number] rris 18:31:18 Health 2016-09-03 Inpatient [facility] [id number] rris 19:49:43 Health 2016-09-02 Inpatient [facility] [id number] rris 14:46:00 Health 2016-08-28 Inpatient [facility] [id number] rris 12:49:08 Health 2016-08-25 Inpatient [facility] [id number] rris 18:38:06 Health 2016-08-25 Inpatient [facility] [id number] Johnson rris 00:00:00 [facility] 2016-08-25 Inpatient [facility] [id number] Johnson rris 00:00:00 Health 2016-08-24 Inpatient [facility] [id number] Johnson rris 12:38:32 Health 2016-08-23 Inpatient [facility] [id number] Johnson rris 23:40:15 [facility] 2016-08-23 Inpatient [facility] [id number] Johnson rris 18:01:15 Health 2016-08-23 Inpatient [facility] [id number] Johnson rris 05:23:14 [facility] 2016-08-23 Inpatient [facility] [id number] Johnson rris 01:38:20 [facility] 2016-08-23 Inpatient [facility] [id number] Johnson rris 01:10:06 [facility] 2016-08-22 Inpatient [facility] [id number] Johnson rris 18:58:47 [facility] 2023-01-19 2023-01-19 Outpatient Malika [facility] [id number] Univers 10:00:00 11:31:10 FAWAD sarmiento [facility] 2023-01-19 2023-01-19 Office Jaspal [facility] [id number] Univers 10:00:00 11:31:10 Visit 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 [id number] Imer as MATERNAL [id number] [facility] ical & CHILD [address] [place] [address] 2023-01-14 2023-01-14 Outpatient [facility] 16:07:56 16:07:56 [id number] F Anna 2022-12-08 2022-12-08 Outpatient [facility] 09:33:18 09:33:18 [id number] F Anna 2022-11-26 2022-11-26 Outpatient [facility] 15:59:13 15:59:13 [id number] F Anna 2022-11-24 2022-11-24 Outpatient [facility] [place] 16:43:56 16:43:56 [id number] F Anna 2022-11-19 2022-11-19 Outpatient [facility]FA [facility] [place] 16:29:20 16:29:20 [id number] F Anna 2022-10-20 2022-10-[address] [facility] [id number] [place] 15:07:59 15:07:59 [id number] F [place] 2022-10-19 2022-10-19 Outpatient SFA S[facility] [id number] [place] 15:42:38 15:42:38 [id number] F [place] 2022-08-26 2022-08-26 Emergency X JAQUELIN, [facility] ERT [id number] Univers 13:09:00 16:01:00 MARJANKRISTOPHER frankynawaf [facility] 2022-08-26 2022-08-26 [facility] [id number] Univers 13:09:00 16:01:00 Doug BERGMAN [id number] i ty [facility] [id number] [facility] [id number] [address] 2022-08-06 2022-08-06 Outpatient [facility] [id number] [address] [place] [address] 00:00:00 00:00:00 [facility] 2022-06-17 2022-06-17 Outpatient [facility] [id number] [place] 00:00:00 00:00:00 Critical access hospital 2022-06-11 2022-06-11 Emergency Hoang, [id number] [id number] [facility] 18:26:00 22:09:[id number] 3.430.2.7 Hospit a .[id number] l .8 2022-06-11 2022-06-11 Emergency Hoang, 1.2.840.1 [id number] 2099 [id number] [facility] 18:26:00 22:09:[id number] 3.430.2.7 Hospit a .[id number] l .8 2022-06-11 2022-06-11 Travel 1.2.840.1 [id number] Methodi 00:00:00 00:00:[address] 3.430.2.7 0.2.7.3.698 Ho spita .3.768225 084.8 l .8 2022-06-11 2022-06-11 Travel 1.2.840.1 1.2.229.868 8178 [id number] Methodi 00:00:00 00:00:[address] 3.430.2.7 0.2.7.3.698 Ho spita .3.090881 084.8 l .8 2022-05-26 2022-05-26 Outpatient [facility] [id number] [place] 00:00:00 00:00:00 [facility] 2022-05-25 2022-05-25 Outpatient CHAPIN, [facility] [id number] [place] 00:00:00 00:00:00 [facility] 2022-05-25 2022-05-25 Outpatient [facility] PRIV PRIV [id number] [facility] 00:00:00 00:00:00 _Diggs_R [id number] Medic al 2022-05-13 2022-05-13 [facility] [id number] [place] 08:26:30 11:29:53 [facility] 2022-05-01 2022-05-01 Outpatient [facility] [id number] [place] 00:00:00 00:00:00 [facility] 2022-04-14 2022-04-14 Outpatient [facility] [id number] [place] 00:00:00 00:00:00 [facility] 2022-04-14 2022-04-14 [facility] [id number] [place] 00:00:00 00:00:00 [facility] 2022-04-08 2022-04-08 Outpatient [facility] PRIV PRIV [id number] [facility] 00:00:00 00:00:00 _Diggs_R [id number] Medic al 2022-04-08 2022-04-08 Kaycee [facility] 10 [facility] 00:00:00 00:00:00 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 2022-04-08 2022-04-08 Outpatient INDIA Longo PRIV [id number] 00:00:00 00:00:00 Kaycee [id number] 2022-04-06 2022-04-06 Outpatient [facility] [id number] [place] 13:48:21 14:32:31 [facility] 2022-03-31 2022-03-31 Outpatient [facility] [id number] [place] 00:00:00 00:00:00 [facility] 2022-03-19 2022-03-19 [facility] [id number] [place] 03:20:40 07:05:00 r Dav 02 [facility] 2022-03-19 2022-03-19 [facility] [id number] [place] 03:20:40 07:05:00 malika Demarco 02 [facility] 2022-03-18 2022-03-19 Outpatient ALLEN BarreraPL MHPL [id number] 22:20:40 02:05:00 Reeva 02 [facility] 2022-03-18 2022-03-19 Emergency E CICI, MHBL MHBL [id number] 22:20:00 02:05:00 REEVA 2022-03-14 2022-03-14 [facility] [id number] [place] 00:15:07 05:00:00 malika Demarco 01 [facility] 2022-03-14 2022-03-14 [facility] [id number] [place] 00:15:07 05:00:00 malika Demarco 01 [facility] 2022-03-13 2022-03-14 Outpatient Martha, ALLENPL MHPL [id number] 19:15:07 00:00:00 Abdiwahab 01 [facility] 2022-03-13 2022-03-14 Outpatient Martha, MHPL MHPL [id number] 19:15:07 00:00:00 Abdiwahab 01 [facility] 2022-03-13 2022-03-14 Emergency E MARTHA, ALLENBL MHBL [id number] MHBL 19:15:00 00:00:00 ABDIWAHAB 2022-03-11 2022-03-11 Outpatient MARJANREEN_BISHOP [facility] [id number] [place] 11:25:00 11:25:00 PIETRO 0713 [facility] 2022-02-24 2022-02-24 [facility] [id number] [place] 09:53:24 10:41:58 [facility] 2022-02-24 2022-02-24 Outpatient [facility] [id number] [place] 10:34:06 10:41:26 [facility] 2022-02-23 2022-02-24 Outpatient [place] [id number] [place] 14:37:42 07:15:27 [facility] 2022-02-24 2022-02-24 [facility] [id number] [place] 00:00:00 00:00:00 [facility] 2022-02-10 2022-02-10 [facility] [id number] [place] 00:00:00 00:00:00 [facility] 2022-02-10 2022-02-10 [facility] [id number] [place] 00:00:00 00:00:00 [facility] 2022-02-05 2022-02-06 Emergency 1 [facility] [id number] [place] 23:16:00 01:00:00 [facility] 2022-02-05 2022-02-06 Emergency [facility] [id number] [place] 23:16:00 01:00:00 [facility] 2022-02-05 2022-02-05 Emergency [facility] [id number] [place] 23:32:16 23:55:28 [facility] 2022-02-05 2022-02-05 [facility] [id number] [place] 21:30:24 21:41:51 [facility] 2022-02-04 2022-02-04 [facility] [id number] [place] 13:16:26 14:54:03 [facility] 2022-01-20 2022-01-20 Outpatient SUZETTE, [facility] [id number] [place] 08:08:28 09:07:11 [facility] 2022-01-20 2022-01-20 Outpatient [facility] [id number] [place] 08:40:24 08:55:12 [facility] 2022-01-20 2022-01-20 Outpatient [facility] [id number] [place] 00:00:00 00:00:00 [facility] 2022-01-20 2022-01-20 Outpatient SUZETTE, [facility] [id number] [place] 00:00:00 00:00:00 [facility] 2022-01-02 2022-01-02 Outpatient KATHRYN ZELAYA [facility] [id number] [place] 00:00:00 00:00:00 [facility] 2021-12-30 2021-12-30 [facility] [id number] [place] 09:12:55 10:28:29 [facility] 2021-12-30 2021-12-30 Outpatient [facility] [id number] [place] 09:43:20 09:55:06 [facility] 2021-12-30 2021-12-30 Outpatient SUZETTE, [facility] [id number] [place] 00:00:00 00:00:00 [facility] 2021-12-18 2021-12-18 Outpatient [facility] PRIV PRIV [id number] [facility] 11:17:00 11:17:00 _Diggs_R [id number] Medic al 2021-12-18 2021-12-18 Outpatient _[facility] PRIV PRIV 237 [id number] [facility] 11:17:00 11:17:00 _Diggs_R [id number] Medic al 2021-12-18 2021-12-18 Outpatient _[facility] PRIV PRIV 237 [id number] [facility] 11:17:00 11:17:00 _Diggs_R [id number] Medic al 2021-12-18 2021-12-18 Outpatient Longo, PRIV PRIV [id number] 00:00:00 00:00:00 Kaycee [id number]-11ec-b [id number] 2021-12-18 2021-12-18 Kaycee [facility] 00:00:00 00:00:00 [facility] - 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 2021-12-16 2021-12-16 Outpatient 3 PERAZA, [facility] [id number] [place] 13:29:29 14:47:42 [facility] 2021-12-16 2021-12-16 Outpatient PERAZA, [facility] [id number] [place] 13:29:29 14:47:42 [facility] 2021-12-16 2021-12-16 Outpatient PERAZA, [facility] [id number] [place] 00:00:00 00:00:00 [facility] 2021-12-05 2021-12-05 [facility] Chloé, 1.2.840.1 [id number] [place]i 09:34:18 23:59:00 Encounter Laith 77019.1.1 729 s t Peter 3.430.2.7 Hospit a .3.838192 l .8 2021-12-05 2021-12-05 Travel 1.2.840.1 1.2.969.304 7361 [id number] Methodi 00:00:00 00:00:[address] 3.430.2.7 0.2.7.3.698 Ho spita .3.770674 084.8 l .8 2021-11-27 2021-11-27 Outpatient [facility] PRIV PRIV [id number] [facility] 01:52:00 01:52:00 _Diggs_R [id number] [facility] 2021-11-27 2021-11-27 Travel 1.2.840.1 1.2.455.571 5544 [id number] [facility]i 00:00:00 00:00:[address] 3.430.2.7 0.2.7.3.698 Ho spita .3.394362 084.8 l .8 2021-11-27 2021-11-27 Transcribe Donta 1.2.840.1 [id number] Methodi 00:00:00 00:00:00 Orders Kaycee Higgins 38030.1.[address] 3.430.2.7 Hospit a .3.248628 l .8 2021-11-25 2021-11-25 Outpatient _[facility] PRIV PRIV [id number] [facility] 05:22:00 05:22:00 _Diggs_R [id number] Medic al 2021-11-25 2021-11-25 [facility] [id number] [place] 00:00:00 00:00:00 [facility] 2021-11-25 2021-11-25 Kaycee [facility] 00:00:00 00:00:00 [facility] 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 2021-11-25 2021-11-25 Outpatient INDIA Longo PRIV [id number] 00:00:00 00:00:00 Kaycee 4-11ec-a [id number] 2021-11-24 2021-11-24 Outpatient [facility] PRIV PRIV [id number] [facility] 09:14:00 09:14:00 _Diggs_R [id number] Medic al 2021-11-12 2021-11-12 Outpatient [facility] PRIV PRIV [id number] [facility] 10:32:00 10:32:00 _Diggs_R [id number] Medic al 2021-11-11 2021-11-11 Emergency [facility]ER[facility] [id number] [place] 15:32:00 17:59:00 [facility] 2021-11-11 2021-11-11 [facility] [id number] [place] 09:22:13 10:07:10 [facility] 2021-11-11 2021-11-11 Outpatient [facility] [id number] [place] 09:43:27 09:47:12 [facility] 2021-11-11 2021-11-11 Outpatient [place] [id number] [place] 00:00:00 00:00:00 [facility] 2021-11-08 2021-11-09 Emergency Timur 1.2.840.1 [id number] Methodi 21:17:00 03:19:00 Gabriella damon 33292.1.1 rust [facility].430.2.7 [facility] .[facility].455351 l .8 2021-10-27 2021-10-27 [facility] [id number] [place] 15:38:32 16:13:58 [facility] 2021-10-27 2021-10-27 Outpatient [facility] [id number] [place] 15:28:33 15:53:26 Health 2021-10-27 2021-10-27 [facility] [id number] [place] 15:00:16 15:00:16 [facility] 2021-10-27 2021-10-27 [facility] [id number] [place] 00:00:00 00:00:00 [facility] 2021-10-27 2021-10-27 [facility] [id number] [place] 00:00:00 00:00:00 [facility] 2021-09-14 2021-09-14 Emergency GABRIELLA COREA [facility] [id number] [place] 00:00:00 00:00:00 534 Method i 2021-08-22 2021-08-22 Emergency SAIGE, [facility] [id number] [id number] [place] 00:00:00 00:00:00 CASH 035 Method i 2021-07-22 2021-07-22 Outpatient [facility] [id number] [place] 00:00:00 00:00:00 [facility] 2021-07-17 2021-07-17 [facility] [id number] [place] 07:38:50 15:27:52 [facility] 2021-05-16 2021-05-16 [facility] [id number] [place] 12:55:35 13:20:54 [facility] 2021-04-03 2021-04-03 [facility] [id number] [place] 10:24:01 11:40:13 [facility] 2021-04-03 2021-04-03 [facility] [id number] [place] 11:20:44 11:27:55 [facility] 2021-04-03 2021-04-03 [facility] [id number] [place] 00:00:00 00:00:00 [facility] 2021-02-10 2021-02-10 Outpatient SUZETTE, [facility] [id number] [place] 07:38:38 14:43:22 [facility] 2021-01-20 2021-01-21 [facility] [id number] [place] 21:01:36 01:40:00 r Dav 00 l [facility] 2021-01-20 2021-01-21 Emergency [facility] [id number] [place] 21:01:36 01:40:00 r Ramona 00 l [facility] 2021-01-20 2021-01-20 Outpatient Paul [facility] [id number] 16:01:36 20:40:00 Domingo Guzman 2021-01-20 2021-01-20 Emergency E PAUL, [facility] [id number] [facility] 16:01:00 20:40:00 [facility] 2021-01-20 2021-01-20 Outpatient SUZETTE, [facility] [id number] [place] 10:49:10 12:23:17 [facility] 2021-01-20 2021-01-20 Outpatient [facility] [id number] [place] 11:36:48 11:56:15 [facility] 2021-01-09 2021-01-09 Outpatient SUZETTE, [facility] [id number] [place] 11:01:40 13:18:27 [facility] 2021-01-02 2021-01-02 [facility] [id number] [place] 00:00:00 00:00:00 MICHELLE [address] 2020-12-25 2020-12-25 Outpatient LAKESHIA [facility] [id number] [place] 00:00:00 00:00:00 GÓMEZ Moreau [facility] 2020-12-25 2020-12-25 Outpatient YING GALVAN [facility] [id number] [place] 00:00:00 00:00:00 [facility] 2020-12-10 2020-12-10 Outpatient TATO CONNOLLY [facility] [id number] [place] 00:00:00 00:00:00 [facility] 2020-11-28 2020-11-28 Outpatient ABNER MORALES [facility] [id number] [place] 09:52:10 10:35:59 [facility] 2020-11-28 2020-11-28 [facility] [id number] [place] 08:52:57 09:35:01 [facility] 2020-11-28 2020-11-28 Outpatient SUZETTE, [facility] [id number] [place] 00:00:00 00:00:00 [facility] 2020-11-26 2020-11-26 Outpatient LARRY-YU [facility] [id number] [place] 10:26:31 12:37:58 Y, GÓMEZ [facility] 2020-11-26 2020-11-26 Outpatient LARRY-YU [facility] [id number] [place] 00:00:00 00:00:00 Y, GÓMEZ [facility] 2020-11-22 2020-11-22 [facility] [id number] [place] 09:06:46 09:06:46 [facility] 2020-11-21 2020-11-21 [facility] [id number] [place] 00:00:00 00:00:00 [facility] 2020-11-21 2020-11-21 [facility] [id number] [place] 00:00:00 00:00:00 [facility] 2020-11-18 2020-11-18 [facility] [id number] [place] 07:34:19 14:53:54 [facility] 2020-11-14 2020-11-14 [facility] [id number] [place] 00:00:00 00:00:00 [facility] 2020-11-12 2020-11-12 [facility] [id number] [place] 19:20:48 23:59:00 [facility] 2020-11-07 2020-11-07 [facility] [id number] [place] 10:15:36 16:17:47 [facility] 2020-11-07 2020-11-07 [facility] [id number] [place] 00:00:00 00:00:00 [facility] 2020-11-06 2020-11-06 Outpatient ABNER MORALES [facility] [id number] [place] 09:10:44 09:31:28 [facility] 2020-11-06 2020-11-06 Outpatient ABNER MORALES [facility] [id number] [place] 09:03:03 09:13:38 [facility] 2020-11-06 2020-11-06 Outpatient ANDREW, ABNER [facility] [id number] [place] 00:00:00 00:00:00 [facility] 2020-11-06 2020-11-06 Outpatient NITZAHERBERTWILMER, [facility] [id number] [place] 00:00:00 00:00:00 [facility] 2020-11-04 2020-11-04 Emergency DAVEBENJAMINFORMERLY [facility] [id number] [place] 07:18:00 08:55[facility] 2020-10-31 2020-10-31 [facility] [id number] [place] 00:00:00 00:00:00 [facility] 2020-10-24 2020-10-24 [facility] [id number] [place] 08:03:09 08:03:09 [facility] 2020-10-23 2020-10-23 Outpatient LAKESHIA [facility] [id number] [place] 07:29:24 12:11:59 Y, GÓMEZ [facility]am [facility] 2020-10-23 2020-10-23 [facility] [id number] [place] 00:00:00 00:00:00 [facility] 2020-10-23 2020-10-23 Outpatient [facility] [id number] [place] 00:00:00 00:00:00 [facility] 2020-10-17 2020-10-17 [facility] [id number] [place] 00:00:00 00:00:00 [facility] 2020-10-10 2020-10-10 [facility] [id number] [place] 07:17:49 15:53:36 [facility] 2020-10-03 2020-10-03 [facility] [id number] [place] 07:29:37 07:29:37 [facility] 2020-09-26 2020-09-26 [facility] [id number] [place] 07:11:20 07:11:20 [facility] 2020-07-24 2020-07-24 [facility] [id number] [place] 00:00:00 00:00:00 VICTORIA 2020-01-25 2020-01-25 Emergency SAIGE, [facility] 064 [id number] [place] 00:00:00 00:00:[address] 2019-11-01 2019-11-01 Outpatient [facility] [id number] [place] 00:00:00 00:00:00 Health 2019-10-19 2019-10-19 Outpatient [facility] [id number] [place] 00:00:00 00:00:00 [facility] 2019-10-11 2019-10-11 Outpatient [facility] [id number] [place] 00:00:00 00:00:00 Health 2019-09-28 2019-09-28 Outpatient [facility] [id number] [place] 00:00:00 00:00:00 [facility] 2019-09-22 2019-09-22 Outpatient [facility] [id number] [place] 00:00:00 00:00:00 2019-09-22 2019-09-22 Outpatient [facility] [id number] [place] 00:00:00 00:00:00 [facility] 2019-09-08 2019-09-08 Outpatient [facility] [id number] [place] 00:00:00 00:00:00 [facility] 2019-09-06 2019-09-06 Outpatient [facility] [id number] [place] 00:00:00 00:00:00 [facility] 2019-08-29 2019-08-29 Outpatient [facility] [id number] [place] 08:07:37 08:07:37 Health 2019-08-11 2019-08-11 Outpatient [facility] [id number] [place] 14:34:35 14:34:35 Health 2019-08-11 2019-08-11 Outpatient [facility] [id number] [place] 14:10:42 14:10:42 Health 2019-08-11 2019-08-11 Outpatient [facility] [id number] [place] 00:00:00 00:00:00 [facility] 2019-08-03 2019-08-03 Outpatient [facility] [id number] [place] 10:45:43 10:45:43 Health 2019-08-01 2019-08-01 Outpatient [facility] [id number] [place] 08:17:31 08:17:31 Health 2019-07-12 2019-07-12 Outpatient [facility] [id number] [place] 13:34:12 13:34:12 Health 2019-07-10 2019-07-10 Outpatient [facility] [id number] [place] 10:18:59 10:18:59 Health 2019-07-10 2019-07-10 Outpatient [facility] [id number] [place] 09:23:42 09:23:42 [facility] 2019-07-10 2019-07-10 Outpatient [facility] [id number] [place] 00:00:00 00:00:00 [facility] 2019-07-05 2019-07-05 Outpatient [facility] [id number] [place] 00:00:00 00:00:00 [facility] 2019-06-21 2019-06-21 Outpatient [facility] [id number] [place] 14:43:36 14:43:36 [facility] 2019-05-31 2019-05-31 Outpatient [facility] [id number] [place] 09:01:41 09:01:41 [facility] 2019-05-31 2019-05-31 Outpatient [facility] [id number] [place] 00:00:00 00:00:00 [facility] 2019-04-21 2019-04-21 Outpatient [facility] [id number] [place] 00:00:00 00:00:00 [facility] 2019-04-14 2019-04-14 Outpatient [facility] [id number] [place] 14:55:03 14:55:03 [facility] 2019-04-07 2019-04-07 Outpatient [facility] [id number] [place] 00:00:00 00:00:00 [facility] 2019-04-07 2019-04-07 Outpatient [facility] [id number] [place] 00:00:00 00:00:00 [facility] 2019-04-07 2019-04-07 Outpatient [facility] [id number] [place] 00:00:00 00:00:00 [facility] 2019-04-06 2019-04-06 Outpatient [facility] [id number] [place] 00:00:00 00:00:00 [facility] 2019-04-05 2019-04-05 Outpatient [facility] [id number] [place] 00:00:00 00:00:00 [facility] 2019-03-29 2019-03-29 Outpatient [facility] [id number] [place] 15:23:28 15:23:28 [facility] 2019-03-28 2019-03-28 Outpatient [facility] [id number] [place] 16:10:03 16:10:03 [facility] 2019-03-28 2019-03-28 Outpatient [facility] [id number] [place] 14:56:12 14:56:12 [facility] 2019-03-28 2019-03-28 Outpatient [facility] [id number] [place] 00:00:00 00:00:00 [facility] 2019-03-24 2019-03-24 Outpatient [facility] [id number] [place] 15:03:38 15:03:38 [facility] 2019-03-10 2019-03-10 Outpatient [facility] [id number] [place] 00:00:00 00:00:00 [facility] 2019-03-09 2019-03-09 Outpatient [facility] [id number] [place] 14:32:57 14:32:57 [facility] 2019-03-03 2019-03-03 Outpatient [facility] [id number] [place] 13:53:33 13:53:33 [facility] 2019-02-23 2019-02-23 Outpatient [facility] [id number] [place] 13:41:45 13:41:45 [facility] 2019-02-16 2019-02-16 Outpatient [facility] [id number] [place] 14:30:15 14:30:15 [facility] 2019-02-09 2019-02-09 Outpatient [facility] [id number] [place] 00:00:00 00:00:00 [facility] 2019-01-18 2019-01-18 Outpatient [facility] [id number] [place] 15:15:44 15:15:44 [facility] 2019-01-11 2019-01-11 Outpatient [facility] [id number] [place] 00:00:00 00:00:00 [facility] 2019-01-04 2019-01-04 Outpatient [facility] [id number] [place] 00:00:00 00:00:00 [facility] 2019-01-02 2019-01-02 Outpatient [facility] [id number] [place] 10:29:45 10:29:45 [facility] 2018-12-20 2018-12-20 Outpatient [facility] [id number] [place] 14:29:22 14:29:22 [facility] 2018-12-12 2018-12-12 Outpatient [facility] [id number] [place] 00:00:00 00:00:00 [facility] 2018-12-07 2018-12-07 Outpatient [facility] [id number] [place] 00:00:00 00:00:00 [facility] 2018-11-18 2018-11-18 Outpatient [facility] [id number] [place] 00:00:00 00:00:00 [facility] 2018-10-27 2018-10-27 Outpatient [facility] [id number] [place] 00:00:00 00:00:00 [facility] 2018-10-25 2018-10-25 Outpatient [facility] [id number] [place] 09:12:01 09:12:01 [facility] 2018-10-25 2018-10-25 Outpatient [facility] [id number] [place] 00:00:00 00:00:00 [facility] 2018-09-29 2018-09-29 Outpatient [facility] [id number] [place] 11:41:40 11:41:40 [facility] 2018-09-22 2018-09-22 Outpatient [facility] [id number] [place] 00:00:00 00:00:00 [facility] 2018-09-21 2018-09-21 Outpatient [facility] [id number] [place] 13:17:51 13:17:51 [facility] 2018-08-08 2018-08-08 Outpatient [facility] [id number] [place] 15:08:56 15:08:56 [facility] 2018-08-08 2018-08-08 Outpatient [facility] [id number] [place] 13:50:11 13:50:11 [facility] 2018-04-20 2018-04-20 Outpatient [facility] [id number] [place] 00:00:00 00:00:00 [facility] 2018-04-11 2018-04-11 Outpatient [facility] [id number] [place] 00:00:00 00:00:00 [facility] 2018-03-24 2018-03-24 Outpatient [facility] [id number] [place] 14:30:08 14:30:08 [facility] 2018-03-11 2018-03-11 Outpatient [facility] [id number] [place] 08:59:56 08:59:56 [facility] 2018-03-09 2018-03-09 Outpatient [facility] [id number] [place] 15:10:05 15:10:05 [facility] 2018-02-25 2018-02-25 Outpatient [facility] [id number] [place] 00:00:00 00:00:00 [facility] 2018-02-22 2018-02-22 Outpatient [facility] [id number] [place] 09:47:44 09:47:44 [facility] 2018-02-01 2018-02-01 Outpatient [facility] [id number] [place] 15:31:00 15:31:00 [facility] 2018-02-01 2018-02-01 Outpatient [facility] [id number] [place] 00:00:00 00:00:00 [facility] 2018-01-28 2018-01-28 Outpatient [facility] [id number] [place] 14:25:09 14:25:09 [facility] 2018-01-13 2018-01-13 Outpatient [facility] [id number] [place] 00:00:00 00:00:00 [facility] 2018-01-07 2018-01-07 Outpatient [facility] [id number] [place] 00:00:00 00:00:00 [facility] 2018-01-06 2018-01-06 Outpatient [facility] [id number] [place] 08:49:34 08:49:34 [facility] 2018-01-03 2018-01-03 Outpatient [facility] [id number] [place] 09:36:54 09:36:54 [facility] 2017-12-23 2017-12-23 Outpatient [facility] [id number] [place] 09:40:46 09:40:46 [facility] 2017-12-09 2017-12-09 Outpatient [facility] [id number] [place] 15:13:23 15:13:23 [facility] 2017-11-25 2017-11-25 Outpatient [facility] [id number] [place] 00:00:00 00:00:00 [facility] 2017-11-24 2017-11-24 Outpatient [facility] [id number] [place] 15:38:59 15:38:59 [facility] 2017-11-24 2017-11-24 Outpatient [facility] [id number] [place] 00:00:00 00:00:00 [facility] 2017-11-22 2017-11-22 Outpatient [facility] [id number] [place] 15:36:55 15:36:55 [facility] 2017-11-17 2017-11-17 Outpatient [facility] [id number] [place] 00:00:00 00:00:00 [facility] 2017-11-11 2017-11-11 Outpatient [facility] [id number] [place] 14:05:46 14:05:46 [facility] 2017-11-10 2017-11-10 Outpatient [facility] [id number] [place] 00:00:00 00:00:00 [facility] 2017-11-03 2017-11-03 Outpatient [facility] [id number] [place] 00:00:00 00:00:00 [facility] 2017-10-27 2017-10-27 Outpatient [facility] [id number] [place] 00:00:00 00:00:00 [facility] 2017-10-20 2017-10-20 Outpatient [facility] [id number] [place] 00:00:00 00:00:00 [facility] 2017-10-13 2017-10-13 Outpatient [facility] [id number] [place] 00:00:00 00:00:00 [facility] 2017-10-08 2017-10-08 Outpatient [facility] [id number] [place] 13:12:58 13:12:58 [facility] 2017-10-08 2017-10-08 Outpatient [facility] [id number] [place] 00:00:00 00:00:00 [facility] 2017-10-04 2017-10-04 Outpatient [facility] [id number] [place] 00:00:00 00:00:00 [facility] 2017-10-01 2017-10-01 Outpatient [facility] [id number] [place] 16:05:17 16:05:17 [facility] 2017-10-01 2017-10-01 Outpatient [facility] [id number] [place] 15:08:55 15:08:55 [facility] 2017-09-09 2017-09-09 Outpatient [facility] [id number] [place] 09:51:17 09:51:17 [facility] 2017-09-08 2017-09-08 Outpatient [facility] [id number] [place] 14:31:52 14:31:52 [facility] 2017-07-28 2017-07-28 Outpatient [facility] [id number] [place] 09:51:18 09:51:18 [facility] 2017-07-18 2017-07-18 Emergency [facility] [id number] [place] 14:53:14 14:53:14 [facility] 2017-07-18 2017-07-18 Inpatient [facility] [id number] [place] 12:13:57 12:13:57 [facility] 2017-07-07 2017-07-07 Outpatient [facility] [id number] [place] 14:50:08 14:50:08 [facility] 2017-06-11 2017-06-11 Outpatient [facility] [id number] [place] 13:28:35 13:28:35 [facility] 2017-06-10 2017-06-10 Outpatient [facility] [id number] [place] 15:39:29 15:39:29 [facility] 2017-06-08 2017-06-08 Outpatient [facility] [id number] [place] 13:05:47 13:05:47 [facility] 2017-06-04 2017-06-04 Outpatient [facility] [id number] [place] 12:40:45 12:40:45 [facility] 2017-06-03 2017-06-03 Outpatient [facility] [id number] [place] 00:00:00 00:00:00 [facility] 2017-06-01 2017-06-01 Outpatient [facility] [id number] [place] 12:36:26 12:36:26 [facility] 2017-05-14 2017-05-14 Outpatient [facility] [id number] [place] 08:24:03 08:24:03 [facility] 2017-05-14 2017-05-14 Outpatient [facility] [id number] [place] 07:23:07 07:23:07 [facility] 2017-04-30 2017-04-30 Outpatient [facility] [id number] [place] 00:00:00 00:00:00 [facility] 2017-04-26 2017-04-26 Outpatient [facility] [id number] [place] 00:00:00 00:00:00 [facility] 2017-04-14 2017-04-14 Outpatient [facility] [id number] [place] 10:24:05 10:24:05 [facility] 2017-04-08 2017-04-08 Outpatient [facility] [id number] [place] 00:00:00 00:00:00 [facility] 2017-04-07 2017-04-07 Outpatient [facility] [id number] [place] 14:24:22 14:24:22 [facility] 2017-04-02 2017-04-02 Outpatient [facility] [id number] [place] 00:00:00 00:00:00 [facility] 2017-03-30 2017-03-30 Outpatient [facility] [id number] [place] 00:00:00 00:00:00 [facility] 2017 2017 Outpatient [facility] [id number] [place] 11:11:06 11:11:06 [facility] 2017-03-12 2017-03-12 Outpatient [facility] [id number] [place] 13:12:40 13:12:40 [facility] 2017-02-19 2017-02-19 Outpatient [facility] [id number] [place] 00:00:00 00:00:00 [facility] 2017-02-03 2017-02-03 Outpatient [facility] [id number] [place] 14:38:51 14:38:51 [facility] 2017-01-18 2017-01-18 Outpatient [facility] [id number] [place] 00:00:00 00:00:00 [facility] 2017-01-13 2017-01-13 Outpatient [facility] [id number] [place] 00:00:00 00:00:00 [facility] 2016-12-30 2016-12-30 Outpatient [facility] [id number] [place] 08:21:55 08:21:55 [facility] 2016-12-28 2016-12-28 Outpatient [facility] [id number] [place] 13:12:13 13:12:13 [facility] 2016-12-16 2016-12-16 Outpatient [facility] [id number] [place] 12:31:42 12:31:42 [facility] 2016-12-14 2016-12-14 Outpatient [facility] [id number] [place] 00:00:00 00:00:00 [facility] 2016-11-30 2016-11-30 Outpatient [facility] [id number] [place] 13:19:09 13:19:09 Health 2016-11-26 2016-11-26 Outpatient [facility] [id number] [place] 13:39:33 13:39:33 Health 2016-11-26 2016-11-26 Outpatient [facility] [id number] [place] 13:37:06 13:37:06 [facility] 2016-11-23 2016-11-23 Outpatient [facility] [id number] [place] 13:27:22 13:27:22 Health 2016-11-16 2016-11-16 Outpatient [facility] [id number] [place] 08:29:28 08:29:28 Health 2016-11-06 2016-11-06 Outpatient [facility] [id number] [place] 14:10:51 14:10:51 [facility] 2016-10-13 2016-10-13 Outpatient [facility] [id number] [place] 11:00:58 11:00:58 [facility] 2016-10-08 2016-10-08 Outpatient [facility] [id number] [place] 12:56:54 12:56:54 [facility] 2016-10-08 2016-10-08 Outpatient [facility] [id number] [place] 12:49:38 12:49:38 [facility] 2016-10-07 2016-10-07 Outpatient [facility] [id number] [place] 15:36:29 15:36:29 [facility] 2016-10-07 2016-10-07 Outpatient [facility] [id number] [place] 14:16:34 14:16:34 [facility] 2016-09-30 2016-09-30 Outpatient [facility] [id number] [place] 09:07:30 09:07:30 [facility] 2016-09-11 2016-09-11 Outpatient [facility] [id number] [place] 11:28:30 11:28:30 Health 2016-08-22 2016-08-22 Emergency [facility] [id number] [place] 22:23:29 22:23:29 Health 2016-08-22 2016-08-22 Emergency [facility] [id number] [place] 19:44:23 19:44:23 Health 2016-08-22 2016-08-22 Emergency [facility] [id number] [place] 19:17:50 19:17:50 Health 2016-08-22 2016-08-22 Emergency [facility] [id number] [place] 19:15:09 19:15:09 Health 2015-09-18 2015-09-19 [facility] [id number] [place] 00:04:00 22:29:00 r Ramona 04 [facility] 2015-09-18 2015-09-19 [facility] [id number] [place] 00:04:00 22:29:00 r Dav 04 [facility] 2015-09-17 2015-09-19 Outpatient Prudencio, MHSE MHSE [id number] 18:04:00 16:29:00 González 04 2015-08-26 2015-08-26 [facility] [id number] [place] 16:33:00 22:17:00 Emergency r Dav 03 [facility] 2015-08-26 2015-08-26 [facility] [id number] [place] 16:33:00 22:17:00 Emergency r Dav 03 [facility] 2015-08-26 2015-08-26 Outpatient Riaz, MHSE MHSE [id number] 10:33:00 16:17:00 Nato Josep Richar 2015-08-15 2015-08-16 [facility] [id number] [place] 11:50:00 22:33:00 r Ramona 02 [facility] 2015-08-15 2015-08-16 [facility] [id number] [place] 11:50:00 22:33:00 r Ramona 02 [facility] 2015-08-15 2015-08-16 Outpatient Tommy Del Toro MHSE MHSE [id number] 05:50:00 16:33:00 Clyde 02 2015-06-24 2015-07-24 [facility] [id number] [place] 20:15:00 05:59:00 Recurring r Dav 01 [facility] 2015-06-24 2015-07-24 [facility] [id number] [place] 20:15:00 05:59:00 Recurring r Dav 01 [facility] 2015-06-24 2015-07-23 Outpatient JANICE Mcclendon MHSE [id number] 15:15:00 23:59:00 Sam [facility] 2015-06-24 2015-06-25 [facility] [id number] [place] 14:21:00 04:59:00 r Dav 01 [facility] 2015-06-24 2015-06-25 [facility] [id number] [place] 14:21:00 04:59:00 r Ramona 01 [facility] 2015-06-24 2015-06-24 Outpatient Hakan, MHSE MHSE [id number] 09:21:00 23:59:00 Sam W 2015-05-23 2015-06-22 [facility] [id number] [place] 15:41:00 04:59:00 Recurring r Ramona 00 [facility] 2015-05-23 2015-06-22 [facility] [id number] [place] 15:41:00 04:59:00 Recurring r Dav 00 [facility] 2015-05-23 2015-06-21 Outpatient Hakan, MHSE MHSE [id number] 10:41:00 23:59:00 Sam W 2015-06-10 2015-06-10 [facility] [id number] [place] 11:23:00 14:36:00 Outpatient r Ramona 00 [facility] 2015-06-10 2015-06-10 [facility] [id number] [place] 11:23:00 14:36:00 Outpatient r Ramona 00 [facility] 2015-06-10 2015-06-10 Outpatient Hakan, MHSE MHSE [id number] 06:23:00 09:36:00 Sam W Results Test Description Test Time Test Comments Results Result Comments Source POCT TEST 2023-01-19 16:12:00 Test Item Value Reference Range Interpretation Comme nts POCT PREG (test code = 1605) Negative On board controls acceptable with C Line (test code = 3574) Yes POCT PREG LOT # (test code = 3575) POCT PREG TEST DATE (test code = 3576) [id number] 16:12:00 Test Item Value Reference Range Interpretation Comments POCT PREG (test code = 1605) Negative On board controls acceptable with C Yes Line (test code = 3574) POCT PREG LOT # (test code = 3575) POCT PREG TEST DATE (test code = 3576) [id number] 06:42:53 Test Item Value Reference Range Interpretation Comments CHOLESTEROL (test 208 MG/DL <200 H code = 2210) TRIGLYCERIDES (test 211 MG/DL <150 H code = 2232) HDL CHOLESTEROL (test 60 MG/DL >39 code = 2220) CALC LDL CHOL (test 115 MG/DL <100 H NOTE: C ALCULATED LDL code = 2237) IS BASED ON MICHEAL-DUQUE METHOD WHICHINCLUDES ADJUSTABLE TRIGLYCERIDE:VL DL CHOLESTEROL RAT IO.THIS FACTOR VARIES B Y MEASURED TRIGLY CERIDE AND NON-HDLCHOL ESTEROL CONCENTRATIONS WITH INCREASED CALCU LATED LDL SEENIN HIGH ER TRIGLYCERIDE OR LOWER NON-HDL SPECIME NS. FOR MOREINFORMATION , SEE CLIENT ANNOUNCE MENT AT [email or web address] [email or web address] RATIO LDL/HDL 1.92 RATIO <3.22 (test code = 2238) COMPREHENSIVE METABOLIC [id number] 06:42:53 Test Item Value Reference Range Interpretation Comments GLUCOSE (test code = 92 MG/DL 70-99 2216) BUN (test code = 11 MG/DL 6-20 2207) CREATININE (test 0.74 MG/DL 0.60-1.30 code = 2214) eGFR (2020 CKD-EPI) 110 >60 (test code = 58851) ML/MIN/1.73 CALC BUN/CREAT (test 15 RATIO 6-28 code = 2235) SODIUM (test code = 142 MEQ/L 600-607 9135) POTASSIUM (test code 4.1 MEQ/L 3.5-5.4 = 2227) CHLORIDE (test code 106 MEQ/L 95-107 = 2215) CARBON DIOXIDE (test 23 MEQ/L 19-31 code = 2206) CALCIUM (test code = 9.4 MG/DL 8.5-10.5 2208) PROTEIN, TOTAL (test 6.6 G/DL 6.1-8.3 code = 222) ALBUMIN (test code = 4.2 G/DL 3.5-5.2 2200) CALC GLOBULIN (test 2.4 G/DL 1.9-3.7 code = 2240) CALC A/G RATIO (test 1.8 RATIO 1.0-2.6 code = 2234) BILIRUBIN, TOTAL <0.2 MG/DL See_Comment [Automated message] (test code = 2207) The syste m which generated this result transmit arvind reference range : <=1.2. The refe rence range was not u sed to interpret th is result as normal/abnormal . ALKALINE PHOSPHATASE 84 U/L 40-114 (test code = 2204) AST (test code = 13 U/L 9-40 2217) ALT (test code = 14 U/L 5-40 2218) HEMOGLOBIN [id number] 04:03:53 Test Item Value Reference Range Interpretation Comments HEMOGLOBIN A1c (test 5.4 % 4.2-5.6 CP L has important code = 45999) pathology staf f changes effective 10/28. New pathology s taff will provide uninter rupted, excellent patie nt care and clinical consultation. S ee URL: [email or web address]. UNLESS O THERWISE INDICATED, ALL TESTING PERFORMED AT [facility] [employer] [address] [place] [address] DIRECTOR: CHASE RAMOS M.D. [facility] NUMBER [id number] CAP ACCREDITATION N O. [id number] CARDIAC [id number] 05:01:00 Test Item Value Reference Range Interpretation Comments HS Troponin I (test code = HS Troponin 5 I) [facility] [id number] 05:01:00 Test Item Value Reference Range Interpretation Comments Glucose Lvl (test code = Glucose Lvl) 96 70-99 [facility]2022-07-21 05:01:00 Test Item Value Reference Range Interpretation Comments BUN (test code = BUN) 16 7-22 [facility]2022-07-21 05:01:00 Test Item Value Reference Range Interpretation Comments Creatinine Lvl (test code = Creatinine 0.73 0.50-1.40 Lvl) [facility] [id number] 05:01:00 Test Item Value Reference Range Interpretation Comments Sodium Lvl (test code = Sodium Lvl) 141 135-145 [facility] [id number] 05:01:00 Test Item Value Reference Range Interpretation Comments Potassium Lvl (test code = Potassium 3.6 3.5-5.1 Lvl) [facility]2022-07-21 05:01:00 Test Item Value Reference Range Interpretation Comments Chloride Lvl (test code = Chloride Lvl) 110 95-109 [facility]2022-07-21 05:01:00 Test Item Value Reference Range Interpretation Comments CO2 (test code = CO2) 25 24-32 [place] [id number] 05:01:00 Test Item Value Reference Range Interpretation Comments Calcium Lvl (test code = Calcium Lvl) 9.3 8.5-10.5 [place] [id number] 05:01:00 Test Item Value Reference Range Interpretation Comments Total Protein (test code = Total 7.2 6.4-8.4 Protein) [place] [id number] 05:01:00 Test Item Value Reference Range Interpretation Comments Albumin Lvl (test code = Albumin Lvl) 3.7 3.5-5.0 [facility]2022-07-21 05:01:00 Test Item Value Reference Range Interpretation Comments ALT (test code = ALT) 59 See_Comment [Auto mated message] The system which ge nerated this result transmit arvind reference range : <=65. The reference range was not used to interpr et this result as mario l/abnormal. [facility]2022-07-21 05:01:00 Test Item Value Reference Range Interpretation Comments AST (test code = AST) 24 See_Comment [Auto mated message] The system which ge nerated this result transmit arvind reference range : <=37. The reference range was not used to interpr et this result as mario l/abnormal. [facility]2022-07-21 05:01:00 Test Item Value Reference Range Interpretation Comments Alk Phos (test code = Alk Phos) 60 39-136 [place] [id number] 05:01:00 Test Item Value Reference Range Interpretation Comments Bili Total (test code = Bili Total) 0.2 0.2-1.3 [place] [id number] 05:01:00 Test Item Value Reference Range Interpretation Comments AGAP (test code = AGAP) 9.6 10.0-20.0 [place] [id number] 05:01:00 Test Item Value Reference Range Interpretation Comments B/C Ratio (test code = B/C Ratio) 22 1 6-25 [facility]2022-07-21 05:01:00 Test Item Value Reference Range Interpretation Comments Globulin (test code = Globulin) 3.5 2.7-4.2 [place] [id number] 05:01:00 Test Item Value Reference Range Interpretation Comments A/G Ratio (test code = A/G Ratio) 1.1 1 0.7-1.6 [facility]2022-07-21 05:01:00 Test Item Value Reference Range Interpretation Comments eGFR (test code = eGFR) 112 [id number] 05:01:00 Test Item Value Reference Range Interpretation Comments WBC (test code = WBC) 6.4 3.7-10.4 [place] 308112-07-21 05:01:00 Test Item Value Reference Range Interpretation Comments RBC (test code = RBC) 5.28 4.20-5.40 [place] 308112-07-21 05:01:00 Test Item Value Reference Range Interpretation Comments Hgb (test code = Hgb) 14.1 12.0-16.0 [facility] HeightsDowlxmkJZLOWWSJGX8394-10-35 05:01:00 Test Item Value Reference Range Interpretation Comments Hct (test code = Hct) 43.0 36.0-48.0 [place] 308112-07-21 05:01:00 Test Item Value Reference Range Interpretation Comments MCV (test code = MCV) 81.4 80.0-98.0 [place] 308112-07-21 05:01:00 Test Item Value Reference Range Interpretation Comments MCH (test code = MCH) 26.7 pg 27.0-31.0 [place] 308112-07-21 05:01:00 Test Item Value Reference Range Interpretation Comments MCHC (test code = MCHC) 32.9 32.0-36.0 [id number] 05:01:00 Test Item Value Reference Range Interpretation Comments RDW (test code = RDW) 14.1 11.5-14.5 [place] 308112-07-21 05:01:00 Test Item Value Reference Range Interpretation Comments Platelet (test code = Platelet) 237 133-450 [facility] HeightsCilbwjoTKDCMCOZTT8708-65-84 05:01:00 Test Item Value Reference Range Interpretation Comments MPV (test code = MPV) 9.1 7.4-10.4 [facility] HeightsMajtbbwZQZPNJYWNX0635-63-48 05:01:00 Test Item Value Reference Range Interpretation Comments PT (test code = PT) 12.4 s 12.0-14.7 [facility] HeightsAqlneqlQPXPWESMUF9930-83-79 05:01:00 Test Item Value Reference Range Interpretation Comments INR (test code = INR) 0.93 1 0.85-1.17 [facility] HeightsTxzotagQJHEPNCBNK9881-44-54 05:01:00 Test Item Value Reference Range Interpretation Comments PTT (test code = PTT) 26.5 s 22.9-35.8 [facility] HeightsZisxkqnBDIYKBINHB9029-98-42 05:01:00 Test Item Value Reference Range Interpretation Comments Segs (test code = Segs) 40.0 45.0-75.0 [facility] HeightsSalhwieOECPJSPJGG9098-25-35 05:01:00 Test Item Value Reference Range Interpretation Comments Lymphocytes (test code = Lymphocytes) 49.7 20.0-40.0 [facility] HeightsYxzabnhTJRWHMXNJR5639-83-60 05:01:00 Test Item Value Reference Range Interpretation Comments Monocytes (test code = Monocytes) 8.5 2.0-12.0 [facility] [id number] 05:01:00 Test Item Value Reference Range Interpretation Comments Eosinophils (test code = 1.0 See_Comment [A utomated message] The Eosinophils) system which ge nerated this result tra nsmitted reference range : <=4.0. The reference r kta was not used to int erpret this result as normal/abnormal . [facility] HeightsLvyhqueQEZJUSVSDX4084-26-36 05:01:00 Test Item Value Reference Range Interpretation Comments Basophils (test code = 0.8 See_Comment [Aut omated message] The Basophils) system which ge nerated this result tra nsmitted reference range : <=1.0. The reference r kat was not used to int erpret this result as normal/abnormal . [facility] HeightsTojcaqaKAXVMEBARG8230-19-43 05:01:00 Test Item Value Reference Range Interpretation Comments Neutrophils # (test code = Neutrophils 2.5 1.5-8.1 #) [facility] [id number] 05:01:00 Test Item Value Reference Range Interpretation Comments Lymphocytes # (test code = Lymphocytes 3.2 1.0-5.5 #) [facility] HeightsFdbosesCEXJBTYFBD2793-72-14 05:01:00 Test Item Value Reference Range Interpretation Comments Monocytes # (test code 0.5 See_Comment [Aut omated message] The = Monocytes #) system which generated this result tra nsmitted reference range : <=0.8. The reference r akt was not used to int erpret this result as normal/abnormal . [facility] HeightsKaiphvxWZBGDEVMOM2994-04-77 05:01:00 Test Item Value Reference Range Interpretation Comments Eosinophils # (test code 0.1 See_Comment [A utomated message] The = Eosinophils #) system whic h generated this result tra nsmitted reference range : <=0.5. The reference r kat was not used to int erpret this result as normal/abnormal . [facility] [id number] 05:01:00 Test Item Value Reference Range Interpretation Comments HS Troponin I (test code = HS Troponin 5 I) [facility]2022-07-21 05:01:00 Test Item Value Reference Range Interpretation Comments Glucose Lvl (test code = Glucose Lvl) 96 70-99 [facility]2022-07-21 05:01:00 Test Item Value Reference Range Interpretation Comments BUN (test code = BUN) 16 7-22 [facility]2022-07-21 05:01:00 Test Item Value Reference Range Interpretation Comments Creatinine Lvl (test code = Creatinine 0.73 0.50-1.40 Lvl) [facility]2022-07-21 05:01:00 Test Item Value Reference Range Interpretation Comments Sodium Lvl (test code = Sodium Lvl) 141 135-145 [facility]2022-07-21 05:01:00 Test Item Value Reference Range Interpretation Comments Potassium Lvl (test code = Potassium 3.6 3.5-5.1 Lvl) [facility]2022-07-21 05:01:00 Test Item Value Reference Range Interpretation Comments Chloride Lvl (test code = Chloride Lvl) 110 95-109 [facility]2022-07-21 05:01:00 Test Item Value Reference Range Interpretation Comments CO2 (test code = CO2) 25 24-32 [facility] [place] [id number] 05:01:00 Test Item Value Reference Range Interpretation Comments Calcium Lvl (test code = Calcium Lvl) 9.3 8.5-10.5 [facility] [place] [id number] 05:01:00 Test Item Value Reference Range Interpretation Comments Total Protein (test code = Total 7.2 6.4-8.4 Protein) [id number] 05:01:00 Test Item Value Reference Range Interpretation Comments Albumin Lvl (test code = Albumin Lvl) 3.7 3.5-5.0 [facility] [place] [id number] 05:01:00 Test Item Value Reference Range Interpretation Comments ALT (test code = ALT) 59 See_Comment [Auto mated message] The system which ge nerated this result transmit arvind reference range : <=65. The reference range was not used to interpr et this result as mario l/abnormal. [facility] [place] [id number] 05:01:00 Test Item Value Reference Range Interpretation Comments AST (test code = AST) 24 See_Comment [Auto mated message] The system which ge nerated this result transmit arvind reference range : <=37. The reference range was not used to interpr et this result as mario l/abnormal. [facility] [place] [id number] 05:01:00 Test Item Value Reference Range Interpretation Comments Alk Phos (test code = Alk Phos) 60 39-[address] [facility] [place] [id number] 05:01:00 Test Item Value Reference Range Interpretation Comments Bili Total (test code = Bili Total) 0.2 0.2-1.3 [facility] [place] [id number] 05:01:00 Test Item Value Reference Range Interpretation Comments AGAP (test code = AGAP) 9.6 10.0-20.[address] [facility] [place] [id number] 05:01:00 Test Item Value Reference Range Interpretation Comments B/C Ratio (test code = B/C Ratio) 22 1 6-25 [facility] [place] [id number] 05:01:00 Test Item Value Reference Range Interpretation Comments Globulin (test code = Globulin) 3.5 2.7-4.2 [facility]2022-07-21 05:01:00 Test Item Value Reference Range Interpretation Comments A/G Ratio (test code = A/G Ratio) 1.1 1 0.7-1.6 [facility]2022-07-21 05:01:00 Test Item Value Reference Range Interpretation Comments eGFR (test code = eGFR) 112 [id number] 05:01:00 Test Item Value Reference Range Interpretation Comments WBC (test code = WBC) 6.4 3.7-10.4 [facility] [id number] 05:01:00 Test Item Value Reference Range Interpretation Comments HS Troponin I (test code = HS Troponin 5 I) [facility]2022-07-21 05:01:00 Test Item Value Reference Range Interpretation Comments Glucose Lvl (test code = Glucose Lvl) 96 70-99 [facility]2022-07-21 05:01:00 Test Item Value Reference Range Interpretation Comments BUN (test code = BUN) 16 7-22 [facility]RnkocckQNQCEJHSRN5931-44-69 05:01:00 Test Item Value Reference Range Interpretation Comments RBC (test code = RBC) 5.28 4.20-5.40 [facility]2022-07-21 05:01:00 Test Item Value Reference Range Interpretation Comments Creatinine Lvl (test code = Creatinine 0.73 0.50-1.40 Lvl) [facility]2022-07-21 05:01:00 Test Item Value Reference Range Interpretation Comments Sodium Lvl (test code = Sodium Lvl) 141 135-145 [facility]2022-07-21 05:01:00 Test Item Value Reference Range Interpretation Comments Potassium Lvl (test code = Potassium 3.6 3.5-5.1 Lvl) [facility]2022-07-21 05:01:00 Test Item Value Reference Range Interpretation Comments Chloride Lvl (test code = Chloride Lvl) 110 95-109 [facility]2022-07-21 05:01:00 Test Item Value Reference Range Interpretation Comments CO2 (test code = CO2) 25 24-32 [facility]2022-07-21 05:01:00 Test Item Value Reference Range Interpretation Comments Calcium Lvl (test code = Calcium Lvl) 9.3 8.5-10.5 [place] 846002-07-21 05:01:00 Test Item Value Reference Range Interpretation Comments Total Protein (test code = Total 7.2 6.4-8.4 Protein) [place] 846002-07-21 05:01:00 Test Item Value Reference Range Interpretation Comments Albumin Lvl (test code = Albumin Lvl) 3.7 3.5-5.0 [place] 846002-07-21 05:01:00 Test Item Value Reference Range Interpretation Comments ALT (test code = ALT) 59 See_Comment [Auto mated message] The system which ge nerated this result transmit arvind reference range : <=65. The reference range was not used to interpr et this result as mario l/abnormal. [place] 846002-07-21 05:01:00 Test Item Value Reference Range Interpretation Comments AST (test code = AST) 24 See_Comment [Auto mated message] The system which ge nerated this result transmit arvind reference range : <=37. The reference range was not used to interpr et this result as mario l/abnormal. [facility] HeightsNvsqbveKGJKOXEVJQ8247-10-07 05:01:00 Test Item Value Reference Range Interpretation Comments Hgb (test code = Hgb) 14.1 12.0-16.0 [place] 846002-07-21 05:01:00 Test Item Value Reference Range Interpretation Comments Alk Phos (test code = Alk Phos) 60 39-136 [place] 846002-07-21 05:01:00 Test Item Value Reference Range Interpretation Comments Bili Total (test code = Bili Total) 0.2 0.2-1.3 [facility]2022-07-21 05:01:00 Test Item Value Reference Range Interpretation Comments AGAP (test code = AGAP) 9.6 10.0-20.0 [place] 846002-07-21 05:01:00 Test Item Value Reference Range Interpretation Comments B/C Ratio (test code = B/C Ratio) 22 1 6-25 [place] 846002-07-21 05:01:00 Test Item Value Reference Range Interpretation Comments Globulin (test code = Globulin) 3.5 2.7-4.2 [place] 846002-07-21 05:01:00 Test Item Value Reference Range Interpretation Comments A/G Ratio (test code = A/G Ratio) 1.1 1 0.7-1.6 [facility] [id number] 05:01:00 Test Item Value Reference Range Interpretation Comments eGFR (test code = eGFR) 112 [facility] HeightsFmisnjuLPEQDDIYQG6086-45-40 05:01:00 Test Item Value Reference Range Interpretation Comments WBC (test code = WBC) 6.4 3.7-10.4 [facility] HeightsXbzvpqjKQJRQKXZAS3742-60-48 05:01:00 Test Item Value Reference Range Interpretation Comments RBC (test code = RBC) 5.28 4.20-5.40 [facility] HeightsNreyngyZCPZYXABFL0377-14-49 05:01:00 Test Item Value Reference Range Interpretation Comments Hgb (test code = Hgb) 14.1 12.0-16.0 [facility] HeightsCfizugpJIVFYCMRJJ1580-23-50 05:01:00 Test Item Value Reference Range Interpretation Comments Hct (test code = Hct) 43.0 36.0-48.0 [facility] HeightsAdckkzbUNRDXDHKCI3468-97-53 05:01:00 Test Item Value Reference Range Interpretation Comments Hct (test code = Hct) 43.0 36.0-48.0 [facility] HeightsZneowxyKLJWVKHAJZ6779-17-28 05:01:00 Test Item Value Reference Range Interpretation Comments MCV (test code = MCV) 81.4 80.0-98.0 [facility] HeightsDoguxbpAEMMVCSRWT3452-25-43 05:01:00 Test Item Value Reference Range Interpretation Comments MCH (test code = MCH) 26.7 pg 27.0-31.0 [facility] HeightsFnjyqsiMXBFAUKOLM6997-60-96 05:01:00 Test Item Value Reference Range Interpretation Comments MCHC (test code = MCHC) 32.9 32.0-36.0 [facility] HeightsHtzfdamYICCCLVLMF1973-09-86 05:01:00 Test Item Value Reference Range Interpretation Comments RDW (test code = RDW) 14.1 11.5-14.5 [facility] HeightsHdqybiqZKBPRGQZZX8952-30-85 05:01:00 Test Item Value Reference Range Interpretation Comments Platelet (test code = Platelet) 237 133-450 [facility] HeightsBqiwziaQKOGMEGJQM7458-12-66 05:01:00 Test Item Value Reference Range Interpretation Comments MPV (test code = MPV) 9.1 7.4-10.4 [facility] HeightsAykaungKEUVRHNCGF8374-91-62 05:01:00 Test Item Value Reference Range Interpretation Comments PT (test code = PT) 12.4 s 12.0-14.7 [facility] HeightsGwckixnIGEQYQGKMH0308-47-59 05:01:00 Test Item Value Reference Range Interpretation Comments INR (test code = INR) 0.93 1 0.85-1.17 [facility] HeightsRrvogalGTCFAXGTGR9612-67-25 05:01:00 Test Item Value Reference Range Interpretation Comments PTT (test code = PTT) 26.5 s 22.9-35.8 [facility] HeightsLxofrftTINHUKHCSC8378-32-58 05:01:00 Test Item Value Reference Range Interpretation Comments MCV (test code = MCV) 81.4 80.0-98.0 [facility] HeightsBikyogyHVAIUMLPMJ4691-02-54 05:01:00 Test Item Value Reference Range Interpretation Comments Segs (test code = Segs) 40.0 45.0-75.0 [facility] HeightsWtxbebbBOXQQIHYHW9352-91-56 05:01:00 Test Item Value Reference Range Interpretation Comments Lymphocytes (test code = Lymphocytes) 49.7 20.0-40.0 [facility] HeightsUzvursqGDCRBQRPFJ6997-17-50 05:01:00 Test Item Value Reference Range Interpretation Comments Monocytes (test code = Monocytes) 8.5 2.0-12.0 [facility] HeightsCalmpwvUEEYQWEFAZ1039-31-18 05:01:00 Test Item Value Reference Range Interpretation Comments Eosinophils (test code = 1.0 See_Comment [A utomated message] The Eosinophils) system which ge nerated this result tra nsmitted reference range : <=4.0. The reference r kat was not used to int erpret this result as normal/abnormal . [facility] HeightsSwooxcpGGUXGXPJWA6742-89-24 05:01:00 Test Item Value Reference Range Interpretation Comments Basophils (test code = 0.8 See_Comment [Aut omated message] The Basophils) system which ge nerated this result tra nsmitted reference range : <=1.0. The reference r kat was not used to int erpret this result as normal/abnormal . [facility] HeightsLpgutdcWRXYBJPLUL7412-92-06 05:01:00 Test Item Value Reference Range Interpretation Comments Neutrophils # (test code = Neutrophils 2.5 1.5-8.1 #) [facility] HeightsNedsdikQHZWKTRVSC3773-94-44 05:01:00 Test Item Value Reference Range Interpretation Comments Lymphocytes # (test code = Lymphocytes 3.2 1.0-5.5 #) [facility] HeightsSaqzvgdXQCSIQIMLK8883-41-15 05:01:00 Test Item Value Reference Range Interpretation Comments Monocytes # (test code 0.5 See_Comment [Aut omated message] The = Monocytes #) system which generated this result tra nsmitted reference range : <=0.8. The reference r kat was not used to int erpret this result as normal/abnormal . [facility] HeightsLctymuxSHDIJBULNW5410-99-41 05:01:00 Test Item Value Reference Range Interpretation Comments Eosinophils # (test code 0.1 See_Comment [A utomated message] The = Eosinophils #) system whic h generated this result tra nsmitted reference range : <=0.5. The reference r kat was not used to int erpret this result as normal/abnormal . [facility] HeightsAignyucTBVJMBOQWT4522-28-32 05:01:00 Test Item Value Reference Range Interpretation Comments MCH (test code = MCH) 26.7 pg 27.0-31.0 [facility] HeightsVjxibfbTJZCLTIETR6384-18-68 05:01:00 Test Item Value Reference Range Interpretation Comments MCHC (test code = MCHC) 32.9 32.0-36.0 [facility] HeightsHstoyqlOSLXHFUJDD4173-76-99 05:01:00 Test Item Value Reference Range Interpretation Comments RDW (test code = RDW) 14.1 11.5-14.5 [facility] HeightsGpxnjpqWSTRSIPJWX8237-48-06 05:01:00 Test Item Value Reference Range Interpretation Comments Platelet (test code = Platelet) 237 133-450 [facility] HeightsFskmbduOZIFWEZRKU3778-23-55 05:01:00 Test Item Value Reference Range Interpretation Comments MPV (test code = MPV) 9.1 7.4-10.4 [facility] HeightsAyohqsmUPTXAELRCM9808-16-01 05:01:00 Test Item Value Reference Range Interpretation Comments PT (test code = PT) 12.4 s 12.0-14.7 [facility] HeightsWloovhxNUWAMVQYZH7625-92-10 05:01:00 Test Item Value Reference Range Interpretation Comments INR (test code = INR) 0.93 1 0.85-1.17 [facility] HeightsFnpqlxgNIOKSATWYA4030-29-14 05:01:00 Test Item Value Reference Range Interpretation Comments PTT (test code = PTT) 26.5 s 22.9-35.8 [facility] HeightsOtudmwxMLNWMKPEBL2942-84-29 05:01:00 Test Item Value Reference Range Interpretation Comments Segs (test code = Segs) 40.0 45.0-75.0 [facility] HeightsKonmienPTEISMRDXR9198-64-21 05:01:00 Test Item Value Reference Range Interpretation Comments Lymphocytes (test code = Lymphocytes) 49.7 20.0-40.0 [facility] HeightsRuhnplaNHQQECXSKX2631-44-44 05:01:00 Test Item Value Reference Range Interpretation Comments Monocytes (test code = Monocytes) 8.5 2.0-12.0 [facility] HeightsEduajeqVTHEVEWXZH2093-96-30 05:01:00 Test Item Value Reference Range Interpretation Comments Eosinophils (test code = 1.0 See_Comment [A utomated message] The Eosinophils) system which ge nerated this result tra nsmitted reference range : <=4.0. The reference r kat was not used to int erpret this result as normal/abnormal . [facility] HeightsUzpobuzCMSSEAWWYG4547-38-94 05:01:00 Test Item Value Reference Range Interpretation Comments Basophils (test code = 0.8 See_Comment [Aut omated message] The Basophils) system which ge nerated this result tra nsmitted reference range : <=1.0. The reference r kat was not used to int erpret this result as normal/abnormal . [facility] HeightsCyimmusQNJCVGYTVS7251-52-04 05:01:00 Test Item Value Reference Range Interpretation Comments Neutrophils # (test code = Neutrophils 2.5 1.5-8.1 #) [facility] HeightsKsgudwsEKYWFRHUVT4510-19-54 05:01:00 Test Item Value Reference Range Interpretation Comments Lymphocytes # (test code = Lymphocytes 3.2 1.0-5.5 #) [place] 308112-07-21 05:01:00 Test Item Value Reference Range Interpretation Comments Monocytes # (test code 0.5 See_Comment [Aut omated message] The = Monocytes #) system which generated this result tra nsmitted reference range : <=0.8. The reference r kat was not used to int erpret this result as normal/abnormal . [facility] HeightsRdtntmmGPSGCEHJXW4528-11-49 05:01:00 Test Item Value Reference Range Interpretation Comments Eosinophils # (test code 0.1 See_Comment [A utomated message] The = Eosinophils #) system [employer] h generated this result tra nsmitted reference range : <=0.5. The reference r kat was not used to int erpret this result as normal/abnormal . [facility] POLWPBN5779-50-88 05:01:00 Test Item Value Reference Range Interpretation Comments HS Troponin I (test code = HS Troponin 5 I) [facility] [id number] 05:01:00 Test Item Value Reference Range Interpretation Comments Glucose Lvl (test code = Glucose Lvl) 96 70-99 [facility] [id number] 05:01:00 Test Item Value Reference Range Interpretation Comments BUN (test code = BUN) 16 7-22 [facility]2022-07-21 05:01:00 Test Item Value Reference Range Interpretation Comments Creatinine Lvl (test code = Creatinine 0.73 0.50-1.40 Lvl) [facility] [id number] 05:01:00 Test Item Value Reference Range Interpretation Comments Sodium Lvl (test code = Sodium Lvl) 141 135-145 [facility] [place] [id number] 05:01:00 Test Item Value Reference Range Interpretation Comments Potassium Lvl (test code = Potassium 3.6 3.5-5.1 Lvl) [facility] [id number] 05:01:00 Test Item Value Reference Range Interpretation Comments Chloride Lvl (test code = Chloride Lvl) 110 95-109 [facility] [id number] 05:01:00 Test Item Value Reference Range Interpretation Comments CO2 (test code = CO2) 25 24-32 [facility] [id number] 05:01:00 Test Item Value Reference Range Interpretation Comments Calcium Lvl (test code = Calcium Lvl) 9.3 8.5-10.5 [facility] [id number] 05:01:00 Test Item Value Reference Range Interpretation Comments Total Protein (test code = Total 7.2 6.4-8.4 Protein) [facility]2022-07-21 05:01:00 Test Item Value Reference Range Interpretation Comments Albumin Lvl (test code = Albumin Lvl) 3.7 3.5-5.[address] [facility] [place] [id number] 05:01:00 Test Item Value Reference Range Interpretation Comments ALT (test code = ALT) 59 See_Comment [Auto mated message] The system which ge nerated this result transmit arvind reference range : <=65. The reference range was not used to interpr et this result as mario l/abnormal. [facility] [place] [id number] 05:01:00 Test Item Value Reference Range Interpretation Comments AST (test code = AST) 24 See_Comment [Auto mated message] The system which ge nerated this result transmit arvind reference range : <=37. The reference range was not used to interpr et this result as mario l/abnormal. [facility] [place] [id number] 05:01:00 Test Item Value Reference Range Interpretation Comments Alk Phos (test code = Alk Phos) 60 39-[address] [facility] [place] [id number] 05:01:00 Test Item Value Reference Range Interpretation Comments Bili Total (test code = Bili Total) 0.2 0.2-1.[address] [facility] [place] IKWYX7786-65-10 05:01:00 Test Item Value Reference Range Interpretation Comments AGAP (test code = AGAP) 9.6 10.0-20.[address] [facility] [place] [id number] 05:01:00 Test Item Value Reference Range Interpretation Comments B/C Ratio (test code = B/C Ratio) 22 1 6-[address] [facility] [place] [id number] 05:01:00 Test Item Value Reference Range Interpretation Comments Globulin (test code = Globulin) 3.5 2.7-4.[address] [facility] [place] [id number] 05:01:00 Test Item Value Reference Range Interpretation Comments A/G Ratio (test code = A/G Ratio) 1.1 1 0.7-1.[address] [facility] [place] [id number] 05:01:00 Test Item Value Reference Range Interpretation Comments eGFR (test code = eGFR) 112 [facility] [place]LbixhulYHXVLTQOHB8190-71-39 05:01:00 Test Item Value Reference Range Interpretation Comments WBC (test code = WBC) 6.4 3.7-10.[address] [facility] QyfalnoMHVWOQPEUW9476-93-33 05:01:00 Test Item Value Reference Range Interpretation Comments RBC (test code = RBC) 5.28 4.20-5.40 [facility] HeightsNglomweJRYRNSQUIZ5223-59-80 05:01:00 Test Item Value Reference Range Interpretation Comments Hgb (test code = Hgb) 14.1 12.0-16.0 [facility] HeightsVuipqxfLAMLUYCVUY8106-88-58 05:01:00 Test Item Value Reference Range Interpretation Comments Hct (test code = Hct) 43.0 36.0-48.0 [facility] HeightsLisbhhgPCVONVYXHD2981-52-76 05:01:00 Test Item Value Reference Range Interpretation Comments MCV (test code = MCV) 81.4 80.0-98.0 [facility] HeightsSxkmbkoDMZBGSNBYE0099-48-02 05:01:00 Test Item Value Reference Range Interpretation Comments MCH (test code = MCH) 26.7 pg 27.0-31.0 [facility] HeightsXfwxtirAXUOQHGZSA4010-76-77 05:01:00 Test Item Value Reference Range Interpretation Comments MCHC (test code = MCHC) 32.9 32.0-36.0 [facility] HeightsPodhiqdLWXONBHJSD6245-70-80 05:01:00 Test Item Value Reference Range Interpretation Comments RDW (test code = RDW) 14.1 11.5-14.5 [facility] HeightsMvvzkeeJDRWWXQCYY0048-63-65 05:01:00 Test Item Value Reference Range Interpretation Comments Platelet (test code = Platelet) 237 133-450 [facility] HeightsXergkfgEJPVMDDIKL5581-29-09 05:01:00 Test Item Value Reference Range Interpretation Comments MPV (test code = MPV) 9.1 7.4-10.4 [place] 308112-07-21 05:01:00 Test Item Value Reference Range Interpretation Comments PT (test code = PT) 12.4 s 12.0-14.7 [place] 308112-07-21 05:01:00 Test Item Value Reference Range Interpretation Comments INR (test code = INR) 0.93 1 0.85-1.17 [place] 308112-07-21 05:01:00 Test Item Value Reference Range Interpretation Comments PTT (test code = PTT) 26.5 s 22.9-35.8 [place] 308112-07-21 05:01:00 Test Item Value Reference Range Interpretation Comments Segs (test code = Segs) 40.0 45.0-75.0 [facility] HeightsOmnogveRAHNQGFCBF5160-59-97 05:01:00 Test Item Value Reference Range Interpretation Comments Lymphocytes (test code = Lymphocytes) 49.7 20.0-40.0 [facility] HeightsVrfztsnUQSHTGNDNY3323-03-65 05:01:00 Test Item Value Reference Range Interpretation Comments Monocytes (test code = Monocytes) 8.5 2.0-12.0 [facility] HeightsBwafvsyVFRDTHOSYS7316-82-71 05:01:00 Test Item Value Reference Range Interpretation Comments Eosinophils (test code = 1.0 See_Comment [A utomated message] The Eosinophils) system which ge nerated this result tra nsmitted reference range : <=4.0. The reference r kat was not used to int erpret this result as normal/abnormal . [facility] HeightsPtajqnbRDTXCREXNZ1641-22-23 05:01:00 Test Item Value Reference Range Interpretation Comments Basophils (test code = 0.8 See_Comment [Aut omated message] The Basophils) system which ge nerated this result tra nsmitted reference range : <=1.0. The reference r kat was not used to int erpret this result as normal/abnormal . [facility] HeightsQtpibkeNYYHPFTTUO1296-80-20 05:01:00 Test Item Value Reference Range Interpretation Comments Neutrophils # (test code = Neutrophils 2.5 1.5-8.1 #) [facility] HeightsSjxdxotCKGIOKYDSU5219-56-64 05:01:00 Test Item Value Reference Range Interpretation Comments Lymphocytes # (test code = Lymphocytes 3.2 1.0-5.5 #) [facility] HeightsLvxuhpbYAVJAREWSU5898-23-97 05:01:00 Test Item Value Reference Range Interpretation Comments Monocytes # (test code 0.5 See_Comment [Aut omated message] The = Monocytes #) system which generated this result tra nsmitted reference range : <=0.8. The reference r kat was not used to int erpret this result as normal/abnormal . [facility] HeightsGqheqptOKJTIXZUKQ2857-86-81 05:01:00 Test Item Value Reference Range Interpretation Comments Eosinophils # (test code 0.1 See_Comment [A utomated message] The = Eosinophils #) system whic h generated this result tra nsmitted reference range : <=0.5. The reference r kat was not used to int erpret this result as normal/abnormal . [facility] [address]INIIKWF7130-68-76 05:01:00 Test Item Value Reference Range Interpretation Comments HS Troponin I (test code = HS Troponin 5 I) [facility]2022-07-21 05:01:00 Test Item Value Reference Range Interpretation Comments Glucose Lvl (test code = Glucose Lvl) 96 70-99 [facility]2022-07-21 05:01:00 Test Item Value Reference Range Interpretation Comments BUN (test code = BUN) 16 7-22 [facility]2022-07-21 05:01:00 Test Item Value Reference Range Interpretation Comments Creatinine Lvl (test code = Creatinine 0.73 0.50-1.40 Lvl) [facility]2022-07-21 05:01:00 Test Item Value Reference Range Interpretation Comments Sodium Lvl (test code = Sodium Lvl) 141 135-145 [facility]2022-07-21 05:01:00 Test Item Value Reference Range Interpretation Comments Potassium Lvl (test code = Potassium 3.6 3.5-5.1 Lvl) [facility]2022-07-21 05:01:00 Test Item Value Reference Range Interpretation Comments Chloride Lvl (test code = Chloride Lvl) 110 95-109 [facility] [facility] 05:01:00 Test Item Value Reference Range Interpretation Comments CO2 (test code = CO2) 25 24-32 [facility]2022-07-21 05:01:00 Test Item Value Reference Range Interpretation Comments Calcium Lvl (test code = Calcium Lvl) 9.3 8.5-10.5 [facility]2022-07-21 05:01:00 Test Item Value Reference Range Interpretation Comments Total Protein (test code = Total 7.2 6.4-8.4 Protein) [facility]2022-07-21 05:01:00 Test Item Value Reference Range Interpretation Comments Albumin Lvl (test code = Albumin Lvl) 3.7 3.5-5.0 [facility]2022-07-21 05:01:00 Test Item Value Reference Range Interpretation Comments ALT (test code = ALT) 59 See_Comment [Auto mated message] The system which ge nerated this result transmit arvind reference range : <=65. The reference range was not used to interpr et this result as mario l/abnormal. [facility]2022-07-21 05:01:00 Test Item Value Reference Range Interpretation Comments AST (test code = AST) 24 See_Comment [Auto mated message] The system which ge nerated this result transmit arvind reference range : <=37. The reference range was not used to interpr et this result as mario l/abnormal. [place] 846002-07-21 05:01:00 Test Item Value Reference Range Interpretation Comments Alk Phos (test code = Alk Phos) 60 39-136 [place] 846002-07-21 05:01:00 Test Item Value Reference Range Interpretation Comments Bili Total (test code = Bili Total) 0.2 0.2-1.3 [place] 846002-07-21 05:01:00 Test Item Value Reference Range Interpretation Comments AGAP (test code = AGAP) 9.6 10.0-20.0 [place] 846002-07-21 05:01:00 Test Item Value Reference Range Interpretation Comments B/C Ratio (test code = B/C Ratio) 22 1 6-25 [place] 846002-07-21 05:01:00 Test Item Value Reference Range Interpretation Comments Globulin (test code = Globulin) 3.5 2.7-4.2 [place] 846002-07-21 05:01:00 Test Item Value Reference Range Interpretation Comments A/G Ratio (test code = A/G Ratio) 1.1 1 0.7-1.6 [place] 846002-07-21 05:01:00 Test Item Value Reference Range Interpretation Comments eGFR (test code = eGFR) 112 [place] 308112-07-21 05:01:00 Test Item Value Reference Range Interpretation Comments WBC (test code = WBC) 6.4 3.7-10.4 [place] 308112-07-21 05:01:00 Test Item Value Reference Range Interpretation Comments RBC (test code = RBC) 5.28 4.20-5.40 [place] 308112-07-21 05:01:00 Test Item Value Reference Range Interpretation Comments Hgb (test code = Hgb) 14.1 12.0-16.0 [place] 308112-07-21 05:01:00 Test Item Value Reference Range Interpretation Comments Hct (test code = Hct) 43.0 36.0-48.0 [facility]JuxudsvQZUCEZVPZF5213-96-93 05:01:00 Test Item Value Reference Range Interpretation Comments MCV (test code = MCV) 81.4 80.0-98.0 [place] 308112-07-21 05:01:00 Test Item Value Reference Range Interpretation Comments MCH (test code = MCH) 26.7 pg 27.0-31.0 [facility] HeightsPozwqisATOYJASSSS0785-86-22 05:01:00 Test Item Value Reference Range Interpretation Comments MCHC (test code = MCHC) 32.9 32.0-36.0 [facility] HeightsSsbjufnWNLENHWZZI2859-07-78 05:01:00 Test Item Value Reference Range Interpretation Comments RDW (test code = RDW) 14.1 11.5-14.5 [place] 308112-07-21 05:01:00 Test Item Value Reference Range Interpretation Comments Platelet (test code = Platelet) 237 133-450 [facility] HeightsBuudrytPUNGFWAAVW4132-52-16 05:01:00 Test Item Value Reference Range Interpretation Comments MPV (test code = MPV) 9.1 7.4-10.4 [facility] HeightsSpilepsITCBUNNUAJ3712-91-33 05:01:00 Test Item Value Reference Range Interpretation Comments PT (test code = PT) 12.4 s 12.0-14.7 [facility] HeightsSdffextQGTXJUVRJM4031-25-44 05:01:00 Test Item Value Reference Range Interpretation Comments INR (test code = INR) 0.93 1 0.85-1.17 [facility] HeightsPqezglmQKYEKDPVWX7441-08-32 05:01:00 Test Item Value Reference Range Interpretation Comments PTT (test code = PTT) 26.5 s 22.9-35.8 [place] 308112-07-21 05:01:00 Test Item Value Reference Range Interpretation Comments Segs (test code = Segs) 40.0 45.0-75.0 [place] 308112-07-21 05:01:00 Test Item Value Reference Range Interpretation Comments Lymphocytes (test code = Lymphocytes) 49.7 20.0-40.0 [place] 308112-07-21 05:01:00 Test Item Value Reference Range Interpretation Comments Monocytes (test code = Monocytes) 8.5 2.0-12.0 [facility]cfHHVOHOKLUN1683[facility]-12 05:01:00 Test Item Value Reference Range Interpretation Comments Eosinophils (test code = 1.0 See_Comment [A utomated message] The Eosinophils) system which ge nerated this result tra nsmitted reference range : <=4.0. The reference r kat was not used to int erpret this result as normal/abnormal . [facility]YcodeejXSHRYGVZIK9959-64-19 05:01:00 Test Item Value Reference Range Interpretation Comments Basophils (test code = 0.8 See_Comment [Aut omated message] The Basophils) system which ge nerated this result tra nsmitted reference range : <=1.0. The reference r kat was not used to int erpret this result as normal/abnormal . [facility] HeightsBdnsazkAOFAVGYNQS3141-12-42 05:01:00 Test Item Value Reference Range Interpretation Comments Neutrophils # (test code = Neutrophils 2.5 1.5-8.1 #) [facility]SwddbluWBWOBWZFUV2177-23-58 05:01:00 Test Item Value Reference Range Interpretation Comments Lymphocytes # (test code = Lymphocytes 3.2 1.0-5.5 #) [facility] HeightsLnlxzzlDOYGHWMEIO9090-74-87 05:01:00 Test Item Value Reference Range Interpretation Comments Monocytes # (test code 0.5 See_Comment [Aut omated message] The = Monocytes #) system which generated this result tra nsmitted reference range : <=0.8. The reference r kat was not used to int erpret this result as normal/abnormal . [facility] HeightsGawxgavFPFPUVOBKW2240-39-64 05:01:00 Test Item Value Reference Range Interpretation Comments Eosinophils # (test code 0.1 See_Comment [A utomated message] The = Eosinophils #) system whic h generated this result tra nsmitted reference range : <=0.5. The reference r kat was not used to int erpret this result as normal/abnormal . [facility]ST[facility]14[facility]:01:00 Test Item Value Reference Range Interpretation Comments HS Troponin I (test code = HS Troponin 5 I) [facility] AWTCF6449[facility]44-14 05:01:00 Test Item Value Reference Range Interpretation Comments Glucose Lvl (test code = Glucose Lvl) 96 70-99 [place] 846002-07-21 05:01:00 Test Item Value Reference Range Interpretation Comments BUN (test code = BUN) 16 7-22 [place] 846002-07-21 05:01:00 Test Item Value Reference Range Interpretation Comments Creatinine Lvl (test code = Creatinine 0.73 0.50-1.40 Lvl) [place] 846002-07-21 05:01:00 Test Item Value Reference Range Interpretation Comments Sodium Lvl (test code = Sodium Lvl) 141 135-145 [place] 846002-07-21 05:01:00 Test Item Value Reference Range Interpretation Comments Potassium Lvl (test code = Potassium 3.6 3.5-5.1 Lvl) [place] 846002-07-21 05:01:00 Test Item Value Reference Range Interpretation Comments Chloride Lvl (test code = Chloride Lvl) 110 95-109 [place] 846002-07-21 05:01:00 Test Item Value Reference Range Interpretation Comments CO2 (test code = CO2) 25 24-32 [place] 846002-07-21 05:01:00 Test Item Value Reference Range Interpretation Comments Calcium Lvl (test code = Calcium Lvl) 9.3 8.5-10.5 [place] 846002-07-21 05:01:00 Test Item Value Reference Range Interpretation Comments Total Protein (test code = Total 7.2 6.4-8.4 Protein) [place] 846002-07-21 05:01:00 Test Item Value Reference Range Interpretation Comments Albumin Lvl (test code = Albumin Lvl) 3.7 3.5-5.0 [place] 846002-07-21 05:01:00 Test Item Value Reference Range Interpretation Comments ALT (test code = ALT) 59 See_Comment [Auto mated message] The system which ge nerated this result transmit arvind reference range : <=65. The reference range was not used to interpr et this result as mario l/abnormal. [place] 846002-07-21 05:01:00 Test Item Value Reference Range Interpretation Comments AST (test code = AST) 24 See_Comment [Auto mated message] The system which ge nerated this result transmit arvind reference range : <=37. The reference range was not used to interpr et this result as mario l/abnormal. [facility]2022-07-21 05:01:00 Test Item Value Reference Range Interpretation Comments Alk Phos (test code = Alk Phos) 60 39-136 [facility]2022-07-21 05:01:00 Test Item Value Reference Range Interpretation Comments Bili Total (test code = Bili Total) 0.2 0.2-1.3 [facility]2022-07-21 05:01:00 Test Item Value Reference Range Interpretation Comments AGAP (test code = AGAP) 9.6 10.0-20.0 [facility]2022-07-21 05:01:00 Test Item Value Reference Range Interpretation Comments B/C Ratio (test code = B/C Ratio) 22 1 6-25 [facility]2022-07-21 05:01:00 Test Item Value Reference Range Interpretation Comments Globulin (test code = Globulin) 3.5 2.7-4.2 [facility]2022-07-21 05:01:00 Test Item Value Reference Range Interpretation Comments A/G Ratio (test code = A/G Ratio) 1.1 1 0.7-1.6 [facility]2022-07-21 05:01:00 Test Item Value Reference Range Interpretation Comments eGFR (test code = eGFR) 112 [facility] HeightsUxucvnkMVEUNPTAGH7848-01-38 05:01:00 Test Item Value Reference Range Interpretation Comments WBC (test code = WBC) 6.4 3.7-10.4 [facility] HeightsLlxzillBWGGDQNLQW0433-78-53 05:01:00 Test Item Value Reference Range Interpretation Comments RBC (test code = RBC) 5.28 4.20-5.40 [facility] HeightsUahklvlOQDWDSXVSY1893-08-51 05:01:00 Test Item Value Reference Range Interpretation Comments Hgb (test code = Hgb) 14.1 12.0-16.0 [facility] HeightsKiyyqujGIBZIFQDBT5827-20-13 05:01:00 Test Item Value Reference Range Interpretation Comments Hct (test code = Hct) 43.0 36.0-48.0 [place] 308112-07-21 05:01:00 Test Item Value Reference Range Interpretation Comments MCV (test code = MCV) 81.4 80.0-98.0 [place] 308112-07-21 05:01:00 Test Item Value Reference Range Interpretation Comments MCH (test code = MCH) 26.7 pg 27.0-31.0 [place] 308112-07-21 05:01:00 Test Item Value Reference Range Interpretation Comments MCHC (test code = MCHC) 32.9 32.0-36.0 [place] 308112-07-21 05:01:00 Test Item Value Reference Range Interpretation Comments RDW (test code = RDW) 14.1 11.5-14.5 [place] 308112-07-21 05:01:00 Test Item Value Reference Range Interpretation Comments Platelet (test code = Platelet) 237 133-450 [facility] HeightsSnlxsglJWVAABGFCR7064-87-51 05:01:00 Test Item Value Reference Range Interpretation Comments MPV (test code = MPV) 9.1 7.4-10.4 [place] 308112-07-21 05:01:00 Test Item Value Reference Range Interpretation Comments PT (test code = PT) 12.4 s 12.0-14.7 [facility] HeightsJkencowBKNLHSERTK7369-05-11 05:01:00 Test Item Value Reference Range Interpretation Comments INR (test code = INR) 0.93 1 0.85-1.17 [place] 308112-07-21 05:01:00 Test Item Value Reference Range Interpretation Comments PTT (test code = PTT) 26.5 s 22.9-35.8 [place] 308112-07-21 05:01:00 Test Item Value Reference Range Interpretation Comments Segs (test code = Segs) 40.0 45.0-75.0 [place] 308112-07-21 05:01:00 Test Item Value Reference Range Interpretation Comments Lymphocytes (test code = Lymphocytes) 49.7 20.0-40.0 [place] 308112-07-21 05:01:00 Test Item Value Reference Range Interpretation Comments Monocytes (test code = Monocytes) 8.5 2.0-12.0 [place] 308112-07-21 05:01:00 Test Item Value Reference Range Interpretation Comments Eosinophils (test code = 1.0 See_Comment [A utomated message] The Eosinophils) system which ge nerated this result tra nsmitted reference range : <=4.0. The reference r kat was not used to int erpret this result as normal/abnormal . [facility]OjbppgsLKPDNQFCTJ5550-69-59 05:01:00 Test Item Value Reference Range Interpretation Comments Basophils (test code = 0.8 See_Comment [Aut omated message] The Basophils) system which ge nerated this result tra nsmitted reference range : <=1.0. The reference r kat was not used to int erpret this result as normal/abnormal . [facility]FdogsqkQYNIFHMGAR3925-81-59 05:01:00 Test Item Value Reference Range Interpretation Comments Neutrophils # (test code = Neutrophils 2.5 1.5-8.1 #) [facility]MolupjvMZZCGSYVZG8169-10-64 05:01:00 Test Item Value Reference Range Interpretation Comments Lymphocytes # (test code = Lymphocytes 3.2 1.0-5.5 #) [facility] HeightsYqccbxnWIUNUBFNRF2565-38-13 05:01:00 Test Item Value Reference Range Interpretation Comments Monocytes # (test code 0.5 See_Comment [Aut omated message] The = Monocytes #) system which generated this result tra nsmitted reference range : <=0.8. The reference r kat was not used to int erpret this result as normal/abnormal . [facility] HeightsItkicboXJHRLDDKBX1587-68-66 05:01:00 Test Item Value Reference Range Interpretation Comments Eosinophils # (test code 0.1 See_Comment [A utomated message] The = Eosinophils #) system whic h generated this result tra nsmitted reference range : <=0.5. The reference r kat was not used to int erpret this result as normal/abnormal . [facility] EYPWGYP6038[facility]32[facility]59 05:01:00 Test Item Value Reference Range Interpretation Comments HS Troponin I (test code = HS Troponin 5 I) [facility] [id number] 05:01:00 Test Item Value Reference Range Interpretation Comments Glucose Lvl (test code = Glucose Lvl) 96 70-99 [facility] GNAST8460-77-24 05:01:00 Test Item Value Reference Range Interpretation Comments BUN (test code = BUN) 16 7-22 [facility] DENMU4043-06-91 05:01:00 Test Item Value Reference Range Interpretation Comments Creatinine Lvl (test code = Creatinine 0.73 0.50-1.40 Lvl) [facility]2022-07-21 05:01:00 Test Item Value Reference Range Interpretation Comments Sodium Lvl (test code = Sodium Lvl) 141 135-145 [place] 846002-07-21 05:01:00 Test Item Value Reference Range Interpretation Comments Potassium Lvl (test code = Potassium 3.6 3.5-5.1 Lvl) [place] 846002-07-21 05:01:00 Test Item Value Reference Range Interpretation Comments Chloride Lvl (test code = Chloride Lvl) 110 95-109 [place] 846002-07-21 05:01:00 Test Item Value Reference Range Interpretation Comments CO2 (test code = CO2) 25 24-32 [place] 846002-07-21 05:01:00 Test Item Value Reference Range Interpretation Comments Calcium Lvl (test code = Calcium Lvl) 9.3 8.5-10.5 [place] 846002-07-21 05:01:00 Test Item Value Reference Range Interpretation Comments Total Protein (test code = Total 7.2 6.4-8.4 Protein) [place] 846002-07-21 05:01:00 Test Item Value Reference Range Interpretation Comments Albumin Lvl (test code = Albumin Lvl) 3.7 3.5-5.0 [place] 846002-07-21 05:01:00 Test Item Value Reference Range Interpretation Comments ALT (test code = ALT) 59 See_Comment [Auto mated message] The system which ge nerated this result transmit arvind reference range : <=65. The reference range was not used to interpr et this result as mario l/abnormal. [place] 846002-07-21 05:01:00 Test Item Value Reference Range Interpretation Comments AST (test code = AST) 24 See_Comment [Auto mated message] The system which ge nerated this result transmit arvind reference range : <=37. The reference range was not used to interpr et this result as mario l/abnormal. [place] 846002-07-21 05:01:00 Test Item Value Reference Range Interpretation Comments Alk Phos (test code = Alk Phos) 60 39-136 [place] 846002-07-21 05:01:00 Test Item Value Reference Range Interpretation Comments Bili Total (test code = Bili Total) 0.2 0.2-1.3 [facility]2022-07-21 05:01:00 Test Item Value Reference Range Interpretation Comments AGAP (test code = AGAP) 9.6 10.0-20.0 [facility]2022-07-21 05:01:00 Test Item Value Reference Range Interpretation Comments B/C Ratio (test code = B/C Ratio) 22 1 6-25 [facility]2022-07-21 05:01:00 Test Item Value Reference Range Interpretation Comments Globulin (test code = Globulin) 3.5 2.7-4.2 [facility]2022-07-21 05:01:00 Test Item Value Reference Range Interpretation Comments A/G Ratio (test code = A/G Ratio) 1.1 1 0.7-1.6 [facility]2022-07-21 05:01:00 Test Item Value Reference Range Interpretation Comments eGFR (test code = eGFR) 112 [facility] HeightsLibrhxgDIWVYNJLCH5510-66-55 05:01:00 Test Item Value Reference Range Interpretation Comments WBC (test code = WBC) 6.4 3.7-10.4 [facility] HeightsHkgiyobAFOZFORLOB4580-92-66 05:01:00 Test Item Value Reference Range Interpretation Comments RBC (test code = RBC) 5.28 4.20-5.40 [facility] HeightsRunifonZGEZZIYBZU7361-79-74 05:01:00 Test Item Value Reference Range Interpretation Comments Hgb (test code = Hgb) 14.1 12.0-16.0 [facility] HeightsAogkavwGTXZIDJEIS6583-50-58 05:01:00 Test Item Value Reference Range Interpretation Comments Hct (test code = Hct) 43.0 36.0-48.0 [place] 308112-07-21 05:01:00 Test Item Value Reference Range Interpretation Comments MCV (test code = MCV) 81.4 80.0-98.0 [facility] HeightsYinbxuxVPYTGIBQSW4795-48-52 05:01:00 Test Item Value Reference Range Interpretation Comments MCH (test code = MCH) 26.7 pg 27.0-31.0 [facility] HeightsLsokofdNIJJVTCPHW7157-82-24 05:01:00 Test Item Value Reference Range Interpretation Comments MCHC (test code = MCHC) 32.9 32.0-36.0 [facility] HeightsEwzngfuZLSPATYQOU3330-85-47 05:01:00 Test Item Value Reference Range Interpretation Comments RDW (test code = RDW) 14.1 11.5-14.5 [place] 308112-07-21 05:01:00 Test Item Value Reference Range Interpretation Comments Platelet (test code = Platelet) 237 133-450 [facility] HeightsOczhopjIUWBQIWCPZ9636-47-47 05:01:00 Test Item Value Reference Range Interpretation Comments MPV (test code = MPV) 9.1 7.4-10.4 [place] 308112-07-21 05:01:00 Test Item Value Reference Range Interpretation Comments PT (test code = PT) 12.4 s 12.0-14.7 [place] 308112-07-21 05:01:00 Test Item Value Reference Range Interpretation Comments INR (test code = INR) 0.93 1 0.85-1.17 [facility] HeightsPzupoahLMEFGOKHOH7320-84-88 05:01:00 Test Item Value Reference Range Interpretation Comments PTT (test code = PTT) 26.5 s 22.9-35.8 [facility] HeightsUnasaoqZGSNHQXJUX6583-90-75 05:01:00 Test Item Value Reference Range Interpretation Comments Segs (test code = Segs) 40.0 45.0-75.0 [facility] HeightsPxotfeoSWBKIBLUBW9111-37-26 05:01:00 Test Item Value Reference Range Interpretation Comments Lymphocytes (test code = Lymphocytes) 49.7 20.0-40.0 [facility] HeightsTsytrrhAPMXKCSSGK7855-43-69 05:01:00 Test Item Value Reference Range Interpretation Comments Monocytes (test code = Monocytes) 8.5 2.0-12.0 [place] 308112-07-21 05:01:00 Test Item Value Reference Range Interpretation Comments Eosinophils (test code = 1.0 See_Comment [A utomated message] The Eosinophils) system which ge nerated this result tra nsmitted reference range : <=4.0. The reference r kat was not used to int erpret this result as normal/abnormal . [facility] HeightsIhhygleRWJHFSESEK9083-24-93 05:01:00 Test Item Value Reference Range Interpretation Comments Basophils (test code = 0.8 See_Comment [Aut omated message] The Basophils) system which ge nerated this result tra nsmitted reference range : <=1.0. The reference r kat was not used to int erpret this result as normal/abnormal . [facility] HeightsQvmoyfuQNHDUKHURN0407-24-54 05:01:00 Test Item Value Reference Range Interpretation Comments Neutrophils # (test code = Neutrophils 2.5 1.5-8.1 #) [facility] HeightsMhyjqsiSIYEIGBJNT4068-29-31 05:01:00 Test Item Value Reference Range Interpretation Comments Lymphocytes # (test code = Lymphocytes 3.2 1.0-5.5 #) [facility] HeightsUqnmfaeQBESYOBQCK6352-91-73 05:01:00 Test Item Value Reference Range Interpretation Comments Monocytes # (test code 0.5 See_Comment [Aut omated message] The = Monocytes #) system which generated this result tra nsmitted reference range : <=0.8. The reference r kat was not used to int erpret this result as normal/abnormal . [facility] HeightsYmtjycjXAHULWJQTV0684-08-55 05:01:00 Test Item Value Reference Range Interpretation Comments Eosinophils # (test code 0.1 See_Comment [A utomated message] The = Eosinophils #) system whic h generated this result tra nsmitted reference range : <=0.5. The reference r kat was not used to int erpret this result as normal/abnormal . [facility] KILBLFV8379-10-61 05:01:00 Test Item Value Reference Range Interpretation Comments HS Troponin I (test code = HS Troponin 5 I) [facility]2022-07-21 05:01:00 Test Item Value Reference Range Interpretation Comments Glucose Lvl (test code = Glucose Lvl) 96 70-99 [facility] EJNUD7570-26-28 05:01:00 Test Item Value Reference Range Interpretation Comments BUN (test code = BUN) 16 7-22 [facility] LTOJY5613-66-26 05:01:00 Test Item Value Reference Range Interpretation Comments Creatinine Lvl (test code = Creatinine 0.73 0.50-1.40 Lvl) [facility]2022-07-21 05:01:00 Test Item Value Reference Range Interpretation Comments Sodium Lvl (test code = Sodium Lvl) 141 135-145 [facility] [id number] 05:01:00 Test Item Value Reference Range Interpretation Comments Potassium Lvl (test code = Potassium 3.6 3.5-5.1 Lvl) [facility]2022-07-21 05:01:00 Test Item Value Reference Range Interpretation Comments Chloride Lvl (test code = Chloride Lvl) 110 95-109 [place] 846002-07-21 05:01:00 Test Item Value Reference Range Interpretation Comments CO2 (test code = CO2) 25 24-32 [place] 846002-07-21 05:01:00 Test Item Value Reference Range Interpretation Comments Calcium Lvl (test code = Calcium Lvl) 9.3 8.5-10.5 [facility]2022-07-21 05:01:00 Test Item Value Reference Range Interpretation Comments Total Protein (test code = Total 7.2 6.4-8.4 Protein) [facility]2022-07-21 05:01:00 Test Item Value Reference Range Interpretation Comments Albumin Lvl (test code = Albumin Lvl) 3.7 3.5-5.0 [facility] HCVCA4401-02-70 05:01:00 Test Item Value Reference Range Interpretation Comments ALT (test code = ALT) 59 See_Comment [Auto mated message] The system which ge nerated this result transmit arvind reference range : <=65. The reference range was not used to interpr et this result as mario l/abnormal. [facility] [id number] 05:01:00 Test Item Value Reference Range Interpretation Comments AST (test code = AST) 24 See_Comment [Auto mated message] The system which ge nerated this result transmit arvind reference range : <=37. The reference range was not used to interpr et this result as mario l/abnormal. [facility]2022-07-21 05:01:00 Test Item Value Reference Range Interpretation Comments Alk Phos (test code = Alk Phos) 60 39-136 [facility] [id number] 05:01:00 Test Item Value Reference Range Interpretation Comments Bili Total (test code = Bili Total) 0.2 0.2-1.3 [place] 846002-07-21 05:01:00 Test Item Value Reference Range Interpretation Comments AGAP (test code = AGAP) 9.6 10.0-20.0 [facility]2022-07-21 05:01:00 Test Item Value Reference Range Interpretation Comments B/C Ratio (test code = B/C Ratio) 22 1 6-25 [facility]2022-07-21 05:01:00 Test Item Value Reference Range Interpretation Comments Globulin (test code = Globulin) 3.5 2.7-4.2 [facility]2022-07-21 05:01:00 Test Item Value Reference Range Interpretation Comments A/G Ratio (test code = A/G Ratio) 1.1 1 0.7-1.6 [facility]2022-07-21 05:01:00 Test Item Value Reference Range Interpretation Comments eGFR (test code = eGFR) 112 [facility]CrkuoedFAYNQEVNJA6137-18-62 05:01:00 Test Item Value Reference Range Interpretation Comments WBC (test code = WBC) 6.4 3.7-10.4 [facility] HeightsNbcnsqnGBMPFRAUDC7357-42-02 05:01:00 Test Item Value Reference Range Interpretation Comments RBC (test code = RBC) 5.28 4.20-5.40 [facility] HeightsRkazwqfEGSNTRZBJY7986-60-65 05:01:00 Test Item Value Reference Range Interpretation Comments Hgb (test code = Hgb) 14.1 12.0-16.0 [facility] HeightsNuietibOIIUTMCLLZ6084-29-22 05:01:00 Test Item Value Reference Range Interpretation Comments Hct (test code = Hct) 43.0 36.0-48.0 [facility] HeightsSjlujgwDPNTBYSAMF5754-22-97 05:01:00 Test Item Value Reference Range Interpretation Comments MCV (test code = MCV) 81.4 80.0-98.0 [place] 308112-07-21 05:01:00 Test Item Value Reference Range Interpretation Comments MCH (test code = MCH) 26.7 pg 27.0-31.0 [facility] HeightsXjyspcsGZZCUYLUZB0483-41-46 05:01:00 Test Item Value Reference Range Interpretation Comments MCHC (test code = MCHC) 32.9 32.0-36.0 [place] 308112-07-21 05:01:00 Test Item Value Reference Range Interpretation Comments RDW (test code = RDW) 14.1 11.5-14.5 [place] 308112-07-21 05:01:00 Test Item Value Reference Range Interpretation Comments Platelet (test code = Platelet) 237 133-450 [facility] HeightsUkqjrwmMYJOUTYSUF0908-91-92 05:01:00 Test Item Value Reference Range Interpretation Comments MPV (test code = MPV) 9.1 7.4-10.4 [place] 308112-07-21 05:01:00 Test Item Value Reference Range Interpretation Comments PT (test code = PT) 12.4 s 12.0-14.7 [place] 308112-07-21 05:01:00 Test Item Value Reference Range Interpretation Comments INR (test code = INR) 0.93 1 0.85-1.17 [place] 308112-07-21 05:01:00 Test Item Value Reference Range Interpretation Comments PTT (test code = PTT) 26.5 s 22.9-35.8 [place] 308112-07-21 05:01:00 Test Item Value Reference Range Interpretation Comments Segs (test code = Segs) 40.0 45.0-75.0 [place] 308112-07-21 05:01:00 Test Item Value Reference Range Interpretation Comments Lymphocytes (test code = Lymphocytes) 49.7 20.0-40.0 [place] 308112-07-21 05:01:00 Test Item Value Reference Range Interpretation Comments Monocytes (test code = Monocytes) 8.5 2.0-12.0 [facility] HeightsCyyjsumXKZDCCZBEA8486-01-47 05:01:00 Test Item Value Reference Range Interpretation Comments Eosinophils (test code = 1.0 See_Comment [A utomated message] The Eosinophils) system which ge nerated this result tra nsmitted reference range : <=4.0. The reference r kat was not used to int erpret this result as normal/abnormal . [facility] HeightsOjeicduMCKHSJHTPJ1433-48-88 05:01:00 Test Item Value Reference Range Interpretation Comments Basophils (test code = 0.8 See_Comment [Aut omated message] The Basophils) system which ge nerated this result tra nsmitted reference range : <=1.0. The reference r kat was not used to int erpret this result as normal/abnormal . [place] 308112-07-21 05:01:00 Test Item Value Reference Range Interpretation Comments Neutrophils # (test code = Neutrophils 2.5 1.5-8.1 #) [facility]SR3775[facility]56[facility]61 05:01:00 Test Item Value Reference Range Interpretation Comments Lymphocytes # (test code = Lymphocytes 3.2 1.0-5.5 #) [facility] HeightsFonprepKSVICEKIXC2705-21-77 05:01:00 Test Item Value Reference Range Interpretation Comments Monocytes # (test code 0.5 See_Comment [Aut omated message] The = Monocytes #) system which generated this result tra nsmitted reference range : <=0.8. The reference r kat was not used to int erpret this result as normal/abnormal . [facility] HeightsDpgecfyWRVOVRDEAD0284-19-54 05:01:00 Test Item Value Reference Range Interpretation Comments Eosinophils # (test code 0.1 See_Comment [A utomated message] The = Eosinophils #) system whic h generated this result tra nsmitted reference range : <=0.5. The reference r kat was not used to int erpret this result as normal/abnormal . [facility] ST[facility]JFGW0209[facility] 05:01:00 Test Item Value Reference Range Interpretation Comments HS Troponin I (test code = HS Troponin 5 I) [facility]2022-07-21 05:01:00 Test Item Value Reference Range Interpretation Comments Glucose Lvl (test code = Glucose Lvl) 96 70-99 [facility]2022-07-21 05:01:00 Test Item Value Reference Range Interpretation Comments BUN (test code = BUN) 16 7-22 [facility]2022-07-21 05:01:00 Test Item Value Reference Range Interpretation Comments Creatinine Lvl (test code = Creatinine 0.73 0.50-1.40 Lvl) [facility]2022-07-21 05:01:00 Test Item Value Reference Range Interpretation Comments Sodium Lvl (test code = Sodium Lvl) 141 135-145 [facility]2022-07-21 05:01:00 Test Item Value Reference Range Interpretation Comments Potassium Lvl (test code = Potassium 3.6 3.5-5.1 Lvl) [facility]2022-07-21 05:01:00 Test Item Value Reference Range Interpretation Comments Chloride Lvl (test code = Chloride Lvl) 110 95-109 [facility] [id number] 05:01:00 Test Item Value Reference Range Interpretation Comments CO2 (test code = CO2) 25 24-32 [place] 846002-07-21 05:01:00 Test Item Value Reference Range Interpretation Comments Calcium Lvl (test code = Calcium Lvl) 9.3 8.5-10.5 [place] 846002-07-21 05:01:00 Test Item Value Reference Range Interpretation Comments Total Protein (test code = Total 7.2 6.4-8.4 Protein) [facility]2022-07-21 05:01:00 Test Item Value Reference Range Interpretation Comments Albumin Lvl (test code = Albumin Lvl) 3.7 3.5-5.0 [place] 846002-07-21 05:01:00 Test Item Value Reference Range Interpretation Comments ALT (test code = ALT) 59 See_Comment [Auto mated message] The system which ge nerated this result transmit arvind reference range : <=65. The reference range was not used to interpr et this result as mario l/abnormal. [facility]2022-07-21 05:01:00 Test Item Value Reference Range Interpretation Comments AST (test code = AST) 24 See_Comment [Auto mated message] The system which ge nerated this result transmit arvind reference range : <=37. The reference range was not used to interpr et this result as mario l/abnormal. [facility]2022-07-21 05:01:00 Test Item Value Reference Range Interpretation Comments Alk Phos (test code = Alk Phos) 60 39-136 [facility]2022-07-21 05:01:00 Test Item Value Reference Range Interpretation Comments Bili Total (test code = Bili Total) 0.2 0.2-1.3 [facility]2022-07-21 05:01:00 Test Item Value Reference Range Interpretation Comments AGAP (test code = AGAP) 9.6 10.0-20.0 [place] 846002-07-21 05:01:00 Test Item Value Reference Range Interpretation Comments B/C Ratio (test code = B/C Ratio) 22 1 6-25 [place] 846002-07-21 05:01:00 Test Item Value Reference Range Interpretation Comments Globulin (test code = Globulin) 3.5 2.7-4.2 [facility] [id number] 05:01:00 Test Item Value Reference Range Interpretation Comments A/G Ratio (test code = A/G Ratio) 1.1 1 0.7-1.6 [facility] [id number] 05:01:00 Test Item Value Reference Range Interpretation Comments eGFR (test code = eGFR) 112 [facility] HeightsOksvpyuIOVAQCPCHA7265-93-92 05:01:00 Test Item Value Reference Range Interpretation Comments WBC (test code = WBC) 6.4 3.7-10.4 [facility] HeightsUzwxzgjTMMCKGAAET1456-68-89 05:01:00 Test Item Value Reference Range Interpretation Comments RBC (test code = RBC) 5.28 4.20-5.40 [facility] HeightsIxoxsacTWDZFBKMUR2519-12-75 05:01:00 Test Item Value Reference Range Interpretation Comments Hgb (test code = Hgb) 14.1 12.0-16.0 [place] 308112-07-21 05:01:00 Test Item Value Reference Range Interpretation Comments Hct (test code = Hct) 43.0 36.0-48.0 [facility] HeightsFcvaqopCXXEBTMSEV0764-50-82 05:01:00 Test Item Value Reference Range Interpretation Comments MCV (test code = MCV) 81.4 80.0-98.0 [facility] HeightsFunytwwOCTXRKKXRK5050-04-63 05:01:00 Test Item Value Reference Range Interpretation Comments MCH (test code = MCH) 26.7 pg 27.0-31.0 [facility] HeightsRxjjefpWEGTYZJPKF6558-00-77 05:01:00 Test Item Value Reference Range Interpretation Comments MCHC (test code = MCHC) 32.9 32.0-36.0 [facility] HeightsTbejcfoFWYNTVDPLK8351-01-59 05:01:00 Test Item Value Reference Range Interpretation Comments RDW (test code = RDW) 14.1 11.5-14.5 [facility] HeightsDtbfgytODNZMMNPWO9720-05-74 05:01:00 Test Item Value Reference Range Interpretation Comments Platelet (test code = Platelet) 237 133-450 [facility] HeightsAlcwvnqLIKTEZPPHB9149-25-86 05:01:00 Test Item Value Reference Range Interpretation Comments MPV (test code = MPV) 9.1 7.4-10.4 [facility] HeightsLdlsrnySAWZHBCODX3372-60-70 05:01:00 Test Item Value Reference Range Interpretation Comments PT (test code = PT) 12.4 s 12.0-14.7 [facility] HeightsRvnflevJONJYETMMI1925-92-10 05:01:00 Test Item Value Reference Range Interpretation Comments INR (test code = INR) 0.93 1 0.85-1.17 [facility] HeightsWfjhvnrLRHXOBNVCT3718-94-64 05:01:00 Test Item Value Reference Range Interpretation Comments PTT (test code = PTT) 26.5 s 22.9-35.8 [facility] HeightsXsbqhgvCEEUNKBQJX0228-84-56 05:01:00 Test Item Value Reference Range Interpretation Comments Segs (test code = Segs) 40.0 45.0-75.0 [facility] HeightsKxudhaeUKNMIRVVBP7258-79-62 05:01:00 Test Item Value Reference Range Interpretation Comments Lymphocytes (test code = Lymphocytes) 49.7 20.0-40.0 [facility] HeightsQkuypnmKMSOMPUGJX7004-51-66 05:01:00 Test Item Value Reference Range Interpretation Comments Monocytes (test code = Monocytes) 8.5 2.0-12.0 [facility] HeightsIuipegjVXIBYHRUYX1146-38-71 05:01:00 Test Item Value Reference Range Interpretation Comments Eosinophils (test code = 1.0 See_Comment [A utomated message] The Eosinophils) system which ge nerated this result tra nsmitted reference range : <=4.0. The reference r kat was not used to int erpret this result as normal/abnormal . [facility] HeightsGffekhcFBFDGOLBAL8072-21-10 05:01:00 Test Item Value Reference Range Interpretation Comments Basophils (test code = 0.8 See_Comment [Aut omated message] The Basophils) system which ge nerated this result tra nsmitted reference range : <=1.0. The reference r kat was not used to int erpret this result as normal/abnormal . [facility] HeightsAjrnoczCZKMEAWDPG2892-26-34 05:01:00 Test Item Value Reference Range Interpretation Comments Neutrophils # (test code = Neutrophils 2.5 1.5-8.1 #) [facility] HeightsRiwijbhJSAQUHETXZ6442-04-20 05:01:00 Test Item Value Reference Range Interpretation Comments Lymphocytes # (test code = Lymphocytes 3.2 1.0-5.5 #) [facility] HeightsKogrncbNSVLTLWWFU2497-92-57 05:01:00 Test Item Value Reference Range Interpretation Comments Monocytes # (test code 0.5 See_Comment [Aut omated message] The = Monocytes #) system which generated this result tra nsmitted reference range : <=0.8. The reference r kat was not used to int erpret this result as normal/abnormal . [facility]vwumrwJYFBZJZZSQ3410-44-18 05:01:00 Test Item Value Reference Range Interpretation Comments Eosinophils # (test code 0.1 See_Comment [A utomated message] The = Eosinophils #) system whic h generated this result tra nsmitted reference range : <=0.5. The reference r kat was not used to int erpret this result as normal/abnormal . [facility] [id number] 05:01:00 Test Item Value Reference Range Interpretation Comments HS Troponin I (test code = HS Troponin 5 I) [facility] [id number] 05:01:00 Test Item Value Reference Range Interpretation Comments Glucose Lvl (test code = Glucose Lvl) 96 70-99 [facility] [id number] 05:01:00 Test Item Value Reference Range Interpretation Comments BUN (test code = BUN) 16 7-22 [facility] [id number] 05:01:00 Test Item Value Reference Range Interpretation Comments Creatinine Lvl (test code = Creatinine 0.73 0.50-1.40 Lvl) [facility] [id number] 05:01:00 Test Item Value Reference Range Interpretation Comments Sodium Lvl (test code = Sodium Lvl) 141 135-145 [facility] [id number] 05:01:00 Test Item Value Reference Range Interpretation Comments Potassium Lvl (test code = Potassium 3.6 3.5-5.1 Lvl) [facility] [id number] 05:01:00 Test Item Value Reference Range Interpretation Comments Chloride Lvl (test code = Chloride Lvl) 110 95-109 [facility] [id number] 05:01:00 Test Item Value Reference Range Interpretation Comments CO2 (test code = CO2) 25 24-32 [facility] [id number] 05:01:00 Test Item Value Reference Range Interpretation Comments Calcium Lvl (test code = Calcium Lvl) 9.3 8.5-10.5 [facility] [id number] 05:01:00 Test Item Value Reference Range Interpretation Comments Total Protein (test code = Total 7.2 6.4-8.4 Protein) [place] 846002-07-21 05:01:00 Test Item Value Reference Range Interpretation Comments Albumin Lvl (test code = Albumin Lvl) 3.7 3.5-5.0 [facility] [id number] 05:01:00 Test Item Value Reference Range Interpretation Comments ALT (test code = ALT) 59 See_Comment [Auto mated message] The system which ge nerated this result transmit arvind reference range : <=65. The reference range was not used to interpr et this result as mario l/abnormal. [facility] [id number] 05:01:00 Test Item Value Reference Range Interpretation Comments AST (test code = AST) 24 See_Comment [Auto mated message] The system which ge nerated this result transmit arvind reference range : <=37. The reference range was not used to interpr et this result as mario l/abnormal. [facility] [id number] 05:01:00 Test Item Value Reference Range Interpretation Comments Alk Phos (test code = Alk Phos) 60 39-136 [facility] [id number] 05:01:00 Test Item Value Reference Range Interpretation Comments Bili Total (test code = Bili Total) 0.2 0.2-1.3 [facility] [id number] 05:01:00 Test Item Value Reference Range Interpretation Comments AGAP (test code = AGAP) 9.6 10.0-20.0 [facility] [id number] 05:01:00 Test Item Value Reference Range Interpretation Comments B/C Ratio (test code = B/C Ratio) 22 1 6-25 [facility] [id number] 05:01:00 Test Item Value Reference Range Interpretation Comments Globulin (test code = Globulin) 3.5 2.7-4.2 [facility] [id number] 05:01:00 Test Item Value Reference Range Interpretation Comments A/G Ratio (test code = A/G Ratio) 1.1 1 0.7-1.6 [facility] [id number] 05:01:00 Test Item Value Reference Range Interpretation Comments eGFR (test code = eGFR) 112 [facility] HeightsLzbrsczMIJXKQWXJP3360-62-49 05:01:00 Test Item Value Reference Range Interpretation Comments WBC (test code = WBC) 6.4 3.7-10.4 [facility] HeightsYcjdhllJDDHKAZHBM5426-77-22 05:01:00 Test Item Value Reference Range Interpretation Comments RBC (test code = RBC) 5.28 4.20-5.40 [facility] HeightsKewrwcqVKFDMWNITP2122-91-78 05:01:00 Test Item Value Reference Range Interpretation Comments Hgb (test code = Hgb) 14.1 12.0-16.0 [place] 308112-07-21 05:01:00 Test Item Value Reference Range Interpretation Comments Hct (test code = Hct) 43.0 36.0-48.0 [facility] HeightsBoyukxmJAAXXRVRNF1681-19-94 05:01:00 Test Item Value Reference Range Interpretation Comments MCV (test code = MCV) 81.4 80.0-98.0 [facility] HeightsNaagvawIITTRMODKT2884-13-79 05:01:00 Test Item Value Reference Range Interpretation Comments MCH (test code = MCH) 26.7 pg 27.0-31.0 [facility] HeightsFrtovgqNUEIRTPUFO3746-14-18 05:01:00 Test Item Value Reference Range Interpretation Comments MCHC (test code = MCHC) 32.9 32.0-36.0 [facility] HeightsXxyighjJLSUBEPWYC6464-99-02 05:01:00 Test Item Value Reference Range Interpretation Comments RDW (test code = RDW) 14.1 11.5-14.5 [facility] HeightsVsauqoaXBLNHSHLKH9234-61-81 05:01:00 Test Item Value Reference Range Interpretation Comments Platelet (test code = Platelet) 237 133-450 [facility] HeightsVjypdxiQXHMKUERTZ8631-67-98 05:01:00 Test Item Value Reference Range Interpretation Comments MPV (test code = MPV) 9.1 7.4-10.4 [place] 308112-07-21 05:01:00 Test Item Value Reference Range Interpretation Comments PT (test code = PT) 12.4 s 12.0-14.7 [place] 308112-07-21 05:01:00 Test Item Value Reference Range Interpretation Comments INR (test code = INR) 0.93 1 0.85-1.17 [place] 308112-07-21 05:01:00 Test Item Value Reference Range Interpretation Comments PTT (test code = PTT) 26.5 s 22.9-35.8 [place] 308112-07-21 05:01:00 Test Item Value Reference Range Interpretation Comments Segs (test code = Segs) 40.0 45.0-75.0 [facility] HeightsBuirsutSKCSIRDPZX1678-52-51 05:01:00 Test Item Value Reference Range Interpretation Comments Lymphocytes (test code = Lymphocytes) 49.7 20.0-40.0 [place] 308112-07-21 05:01:00 Test Item Value Reference Range Interpretation Comments Monocytes (test code = Monocytes) 8.5 2.0-12.0 [place] 308112-07-21 05:01:00 Test Item Value Reference Range Interpretation Comments Eosinophils (test code = 1.0 See_Comment [A utomated message] The Eosinophils) system which ge nerated this result tra nsmitted reference range : <=4.0. The reference r kat was not used to int erpret this result as normal/abnormal . [facility] HeightsZmpncsrGBDJJZCTLS8305-92-38 05:01:00 Test Item Value Reference Range Interpretation Comments Basophils (test code = 0.8 See_Comment [Aut omated message] The Basophils) system which ge nerated this result tra nsmitted reference range : <=1.0. The reference r kat was not used to int erpret this result as normal/abnormal . [facility] HeightsLzwvbibLFXPHOFPVR2741-46-70 05:01:00 Test Item Value Reference Range Interpretation Comments Neutrophils # (test code = Neutrophils 2.5 1.5-8.1 #) [facility] HeightsGsbonayWJXUNMNGKX9734-29-61 05:01:00 Test Item Value Reference Range Interpretation Comments Lymphocytes # (test code = Lymphocytes 3.2 1.0-5.5 #) [place] 308112-07-21 05:01:00 Test Item Value Reference Range Interpretation Comments Monocytes # (test code 0.5 See_Comment [Aut omated message] The = Monocytes #) system which generated this result tra nsmitted reference range : <=0.8. The reference r kat was not used to int erpret this result as normal/abnormal . [facility] HeightsJcgqewrMABYJQRHOE5529-91-11 05:01:00 Test Item Value Reference Range Interpretation Comments Eosinophils # (test code 0.1 See_Comment [A utomated message] The = Eosinophils #) system whic h generated this result tra nsmitted reference range : <=0.5. The reference r kat was not used to int erpret this result as normal/abnormal . [facility] [id number] 05:01:00 Test Item Value Reference Range Interpretation Comments HS Troponin I (test code = HS Troponin 5 I) [facility] [id number] 05:01:00 Test Item Value Reference Range Interpretation Comments Glucose Lvl (test code = Glucose Lvl) 96 70-99 [facility]2022-07-21 05:01:00 Test Item Value Reference Range Interpretation Comments BUN (test code = BUN) 16 7-22 [facility]2022-07-21 05:01:00 Test Item Value Reference Range Interpretation Comments Creatinine Lvl (test code = Creatinine 0.73 0.50-1.40 Lvl) [facility]2022-07-21 05:01:00 Test Item Value Reference Range Interpretation Comments Sodium Lvl (test code = Sodium Lvl) 141 135-145 [facility] [id number] 05:01:00 Test Item Value Reference Range Interpretation Comments Potassium Lvl (test code = Potassium 3.6 3.5-5.1 Lvl) [facility]2022-07-21 05:01:00 Test Item Value Reference Range Interpretation Comments Chloride Lvl (test code = Chloride Lvl) 110 95-109 [facility]2022-07-21 05:01:00 Test Item Value Reference Range Interpretation Comments CO2 (test code = CO2) 25 24-32 [facility]2022-07-21 05:01:00 Test Item Value Reference Range Interpretation Comments Calcium Lvl (test code = Calcium Lvl) 9.3 8.5-10.5 [facility]2022-07-21 05:01:00 Test Item Value Reference Range Interpretation Comments Total Protein (test code = Total 7.2 6.4-8.4 Protein) [facility]2022-07-21 05:01:00 Test Item Value Reference Range Interpretation Comments Albumin Lvl (test code = Albumin Lvl) 3.7 3.5-5.0 [facility] [id number] 05:01:00 Test Item Value Reference Range Interpretation Comments ALT (test code = ALT) 59 See_Comment [Auto mated message] The system which ge nerated this result transmit arvind reference range : <=65. The reference range was not used to interpr et this result as mario l/abnormal. [facility] [id number] 05:01:00 Test Item Value Reference Range Interpretation Comments AST (test code = AST) 24 See_Comment [Auto mated message] The system which ge nerated this result transmit arvind reference range : <=37. The reference range was not used to interpr et this result as mario l/abnormal. [facility] [place] [id number] 05:01:00 Test Item Value Reference Range Interpretation Comments Alk Phos (test code = Alk Phos) 60 39-136 [facility] [id number] 05:01:00 Test Item Value Reference Range Interpretation Comments Bili Total (test code = Bili Total) 0.2 0.2-1.3 [facility] [id number] 05:01:00 Test Item Value Reference Range Interpretation Comments AGAP (test code = AGAP) 9.6 10.0-20.[address] [facility] [place] [id number] 05:01:00 Test Item Value Reference Range Interpretation Comments B/C Ratio (test code = B/C Ratio) 22 1 6-25 [facility] [place] [id number] 05:01:00 Test Item Value Reference Range Interpretation Comments Globulin (test code = Globulin) 3.5 2.7-4.[address] [facility] [place] [id number] 05:01:00 Test Item Value Reference Range Interpretation Comments A/G Ratio (test code = A/G Ratio) 1.1 1 0.7-1.6 [facility] [place] [id number] 05:01:00 Test Item Value Reference Range Interpretation Comments eGFR (test code = eGFR) 112 [facility] HeightsVobbyzmGMRIDLHBRF6695-43-57 05:01:00 Test Item Value Reference Range Interpretation Comments WBC (test code = WBC) 6.4 3.7-10.4 [facility] WorthByfymkpTYLFXQUUTD9229-89-94 05:01:00 Test Item Value Reference Range Interpretation Comments RBC (test code = RBC) 5.28 4.20-5.40 [facility] HeightsHxkigpuWFPHSKNHVT1997-77-76 05:01:00 Test Item Value Reference Range Interpretation Comments Hgb (test code = Hgb) 14.1 12.0-16.0 [place] 308112-07-21 05:01:00 Test Item Value Reference Range Interpretation Comments Hct (test code = Hct) 43.0 36.0-48.0 [facility] HeightsRqotxkxGUSSHGWNPD5780-78-73 05:01:00 Test Item Value Reference Range Interpretation Comments MCV (test code = MCV) 81.4 80.0-98.0 [facility] HeightsPcsyhbcEUNAUFJCZE1914-64-47 05:01:00 Test Item Value Reference Range Interpretation Comments MCH (test code = MCH) 26.7 pg 27.0-31.0 [facility] HeightsAppakfnJCOFDFOVTJ7053-90-25 05:01:00 Test Item Value Reference Range Interpretation Comments MCHC (test code = MCHC) 32.9 32.0-36.0 [facility] HeightsXkvgkybBGCSXXIOIB9746-29-70 05:01:00 Test Item Value Reference Range Interpretation Comments RDW (test code = RDW) 14.1 11.5-14.5 [facility] HeightsIuvwiorPWIYKXXFOU0298-17-99 05:01:00 Test Item Value Reference Range Interpretation Comments Platelet (test code = Platelet) 237 133-450 [facility] HeightsQpgbbhsUFZGISTHSU5880-40-25 05:01:00 Test Item Value Reference Range Interpretation Comments MPV (test code = MPV) 9.1 7.4-10.4 [facility] HeightsBwyouojZXTHVITNCO6359-18-45 05:01:00 Test Item Value Reference Range Interpretation Comments PT (test code = PT) 12.4 s 12.0-14.7 [place] 308112-07-21 05:01:00 Test Item Value Reference Range Interpretation Comments INR (test code = INR) 0.93 1 0.85-1.17 [facility] HeightsStilppmTUUGQJMTXO3098-57-84 05:01:00 Test Item Value Reference Range Interpretation Comments PTT (test code = PTT) 26.5 s 22.9-35.8 [facility] HeightsNaoyigqYVLECCCAIY1249-33-85 05:01:00 Test Item Value Reference Range Interpretation Comments Segs (test code = Segs) 40.0 45.0-75.0 [facility] HeightsFuahwvvITKFNSCHUC5953-97-90 05:01:00 Test Item Value Reference Range Interpretation Comments Lymphocytes (test code = Lymphocytes) 49.7 20.0-40.0 [facility] HeightsZwfifunVHJVBPFQAA1632-00-53 05:01:00 Test Item Value Reference Range Interpretation Comments Monocytes (test code = Monocytes) 8.5 2.0-12.0 [facility] HeightsGvpelkwNDRYOKYLLK2769-95-99 05:01:00 Test Item Value Reference Range Interpretation Comments Eosinophils (test code = 1.0 See_Comment [A utomated message] The Eosinophils) system which ge nerated this result tra nsmitted reference range : <=4.0. The reference r kat was not used to int erpret this result as normal/abnormal . [facility] HeightsSmpksygRMEBIWYFVN4414-41-57 05:01:00 Test Item Value Reference Range Interpretation Comments Basophils (test code = 0.8 See_Comment [Aut omated message] The Basophils) system which ge nerated this result tra nsmitted reference range : <=1.0. The reference r kat was not used to int erpret this result as normal/abnormal . [facility] HeightsLsbuwejJMOSBICVEB5875-14-15 05:01:00 Test Item Value Reference Range Interpretation Comments Neutrophils # (test code = Neutrophils 2.5 1.5-8.1 #) [facility] HeightsDkehjlzDPXXFGSHON0751-46-75 05:01:00 Test Item Value Reference Range Interpretation Comments Lymphocytes # (test code = Lymphocytes 3.2 1.0-5.5 #) [facility] HeightsAbpovqlBUPBRQAKZG3449-74-26 05:01:00 Test Item Value Reference Range Interpretation Comments Monocytes # (test code 0.5 See_Comment [Aut omated message] The = Monocytes #) system which generated this result tra nsmitted reference range : <=0.8. The reference r kat was not used to int erpret this result as normal/abnormal . [facility] HeightsQsaztxsKMRKBZCDWK9540-41-92 05:01:00 Test Item Value Reference Range Interpretation Comments Eosinophils # (test code 0.1 See_Comment [A utomated message] The = Eosinophils #) system ic h generated this result tra nsmitted reference range : <=0.5. The reference r kat was not used to int erpret this result as normal/abnormal . [facility] KTZDVFW6942[facility]80[facility] 05:01:00 Test Item Value Reference Range Interpretation Comments HS Troponin I (test code = HS Troponin 5 I) [facility] [id number] 05:01:00 Test Item Value Reference Range Interpretation Comments Glucose Lvl (test code = Glucose Lvl) 96 70-99 [facility]2022-07-21 05:01:00 Test Item Value Reference Range Interpretation Comments BUN (test code = BUN) 16 7-22 [facility]2022-07-21 05:01:00 Test Item Value Reference Range Interpretation Comments Creatinine Lvl (test code = Creatinine 0.73 0.50-1.40 Lvl) [facility]2022-07-21 05:01:00 Test Item Value Reference Range Interpretation Comments Sodium Lvl (test code = Sodium Lvl) 141 135-145 [facility]2022-07-21 05:01:00 Test Item Value Reference Range Interpretation Comments Potassium Lvl (test code = Potassium 3.6 3.5-5.1 Lvl) [facility]2022-07-21 05:01:00 Test Item Value Reference Range Interpretation Comments Chloride Lvl (test code = Chloride Lvl) 110 95-109 [facility]2022-07-21 05:01:00 Test Item Value Reference Range Interpretation Comments CO2 (test code = CO2) 25 24-32 [facility]2022-07-21 05:01:00 Test Item Value Reference Range Interpretation Comments Calcium Lvl (test code = Calcium Lvl) 9.3 8.5-10.5 [facility]2022-07-21 05:01:00 Test Item Value Reference Range Interpretation Comments Total Protein (test code = Total 7.2 6.4-8.4 Protein) [facility]2022-07-21 05:01:00 Test Item Value Reference Range Interpretation Comments Albumin Lvl (test code = Albumin Lvl) 3.7 3.5-5.0 [facility]2022-07-21 05:01:00 Test Item Value Reference Range Interpretation Comments ALT (test code = ALT) 59 See_Comment [Auto mated message] The system which ge nerated this result transmit arvind reference range : <=65. The reference range was not used to interpr et this result as mario l/abnormal. [place] 846002-07-21 05:01:00 Test Item Value Reference Range Interpretation Comments AST (test code = AST) 24 See_Comment [Auto mated message] The system which ge nerated this result transmit arvind reference range : <=37. The reference range was not used to interpr et this result as mario l/abnormal. [place] 846002-07-21 05:01:00 Test Item Value Reference Range Interpretation Comments Alk Phos (test code = Alk Phos) 60 39-136 [place] 846002-07-21 05:01:00 Test Item Value Reference Range Interpretation Comments Bili Total (test code = Bili Total) 0.2 0.2-1.3 [place] 846002-07-21 05:01:00 Test Item Value Reference Range Interpretation Comments AGAP (test code = AGAP) 9.6 10.0-20.0 [place] 846002-07-21 05:01:00 Test Item Value Reference Range Interpretation Comments B/C Ratio (test code = B/C Ratio) 22 1 6-25 [place] 846002-07-21 05:01:00 Test Item Value Reference Range Interpretation Comments Globulin (test code = Globulin) 3.5 2.7-4.2 [place] 846002-07-21 05:01:00 Test Item Value Reference Range Interpretation Comments A/G Ratio (test code = A/G Ratio) 1.1 1 0.7-1.6 [place] 846002-07-21 05:01:00 Test Item Value Reference Range Interpretation Comments eGFR (test code = eGFR) 112 [place] 308112-07-21 05:01:00 Test Item Value Reference Range Interpretation Comments WBC (test code = WBC) 6.4 3.7-10.4 [place] 308112-07-21 05:01:00 Test Item Value Reference Range Interpretation Comments RBC (test code = RBC) 5.28 4.20-5.40 [place] 308112-07-21 05:01:00 Test Item Value Reference Range Interpretation Comments Hgb (test code = Hgb) 14.1 12.0-16.0 [place] 308112-07-21 05:01:00 Test Item Value Reference Range Interpretation Comments Hct (test code = Hct) 43.0 36.0-48.0 [facility] HeightsKyicjtcYPFNLIKIPU0371-57-43 05:01:00 Test Item Value Reference Range Interpretation Comments MCV (test code = MCV) 81.4 80.0-98.0 [place] 308112-07-21 05:01:00 Test Item Value Reference Range Interpretation Comments MCH (test code = MCH) 26.7 pg 27.0-31.0 [facility] HeightsGkuunrzIPFEPDTWQY7857-64-59 05:01:00 Test Item Value Reference Range Interpretation Comments MCHC (test code = MCHC) 32.9 32.0-36.0 [facility] HeightsGtrrbsnDABYZMFIYD7915-51-86 05:01:00 Test Item Value Reference Range Interpretation Comments RDW (test code = RDW) 14.1 11.5-14.5 [place] 308112-07-21 05:01:00 Test Item Value Reference Range Interpretation Comments Platelet (test code = Platelet) 237 133-450 [facility] HeightsTaornstWNGDNVUELH5055-70-00 05:01:00 Test Item Value Reference Range Interpretation Comments MPV (test code = MPV) 9.1 7.4-10.4 [facility] HeightsQwnelmuYDENCZNXDH3677-31-71 05:01:00 Test Item Value Reference Range Interpretation Comments PT (test code = PT) 12.4 s 12.0-14.7 [facility] HeightsRjblyerURDMNWBVBH6292-40-13 05:01:00 Test Item Value Reference Range Interpretation Comments INR (test code = INR) 0.93 1 0.85-1.17 [facility] HeightsJjedbcvACWCJRTYCF0247-83-70 05:01:00 Test Item Value Reference Range Interpretation Comments PTT (test code = PTT) 26.5 s 22.9-35.8 [place] 308112-07-21 05:01:00 Test Item Value Reference Range Interpretation Comments Segs (test code = Segs) 40.0 45.0-75.0 [place] 308112-07-21 05:01:00 Test Item Value Reference Range Interpretation Comments Lymphocytes (test code = Lymphocytes) 49.7 20.0-40.0 [facility] HeightsQqmljaeYRFPOEAHHQ6409-24-96 05:01:00 Test Item Value Reference Range Interpretation Comments Monocytes (test code = Monocytes) 8.5 2.0-12.0 [facility]mqACODRXVYWZ4129-92-23 05:01:00 Test Item Value Reference Range Interpretation Comments Eosinophils (test code = 1.0 See_Comment [A utomated message] The Eosinophils) system which ge nerated this result tra nsmitted reference range : <=4.0. The reference r kat was not used to int erpret this result as normal/abnormal . [facility] HeightsAljbrlfDAXQNZUWTV7401-20-92 05:01:00 Test Item Value Reference Range Interpretation Comments Basophils (test code = 0.8 See_Comment [Aut omated message] The Basophils) system which ge nerated this result tra nsmitted reference range : <=1.0. The reference r kat was not used to int erpret this result as normal/abnormal . [facility] HeightsQoawkgiTRIONGJXYP8223-93-71 05:01:00 Test Item Value Reference Range Interpretation Comments Neutrophils # (test code = Neutrophils 2.5 1.5-8.1 #) [facility] HeightsHgzlzvrHCYYLVDIAP6502-76-89 05:01:00 Test Item Value Reference Range Interpretation Comments Lymphocytes # (test code = Lymphocytes 3.2 1.0-5.5 #) [facility] HeightsAqqakphFNEGZBUQCD8856-53-28 05:01:00 Test Item Value Reference Range Interpretation Comments Monocytes # (test code 0.5 See_Comment [Aut omated message] The = Monocytes #) system which generated this result tra nsmitted reference range : <=0.8. The reference r kat was not used to int erpret this result as normal/abnormal . [facility] HeightsHjijxorIKVTQEBFWB3995-51-66 05:01:00 Test Item Value Reference Range Interpretation Comments Eosinophils # (test code 0.1 See_Comment [A utomated message] The = Eosinophils #) system whic h generated this result tra nsmitted reference range : <=0.5. The reference r kat was not used to int erpret this result as normal/abnormal . [facility] ZPDROTW5591[facility]68-04 05:01:00 Test Item Value Reference Range Interpretation Comments HS Troponin I (test code = HS Troponin 5 I) [facility] [id number] 05:01:00 Test Item Value Reference Range Interpretation Comments Glucose Lvl (test code = Glucose Lvl) 96 70-99 [place] 846002-07-21 05:01:00 Test Item Value Reference Range Interpretation Comments BUN (test code = BUN) 16 7-22 [place] 846002-07-21 05:01:00 Test Item Value Reference Range Interpretation Comments Creatinine Lvl (test code = Creatinine 0.73 0.50-1.40 Lvl) [place] 846002-07-21 05:01:00 Test Item Value Reference Range Interpretation Comments Sodium Lvl (test code = Sodium Lvl) 141 135-145 [place] 846002-07-21 05:01:00 Test Item Value Reference Range Interpretation Comments Potassium Lvl (test code = Potassium 3.6 3.5-5.1 Lvl) [place] 846002-07-21 05:01:00 Test Item Value Reference Range Interpretation Comments Chloride Lvl (test code = Chloride Lvl) 110 95-109 [place] 846002-07-21 05:01:00 Test Item Value Reference Range Interpretation Comments CO2 (test code = CO2) 25 24-32 [place] 846002-07-21 05:01:00 Test Item Value Reference Range Interpretation Comments Calcium Lvl (test code = Calcium Lvl) 9.3 8.5-10.5 [place] 846002-07-21 05:01:00 Test Item Value Reference Range Interpretation Comments Total Protein (test code = Total 7.2 6.4-8.4 Protein) [place] 846002-07-21 05:01:00 Test Item Value Reference Range Interpretation Comments Albumin Lvl (test code = Albumin Lvl) 3.7 3.5-5.0 [place] 846002-07-21 05:01:00 Test Item Value Reference Range Interpretation Comments ALT (test code = ALT) 59 See_Comment [Auto mated message] The system which ge nerated this result transmit arvind reference range : <=65. The reference range was not used to interpr et this result as mario l/abnormal. [place] 846002-07-21 05:01:00 Test Item Value Reference Range Interpretation Comments AST (test code = AST) 24 See_Comment [Auto mated message] The system which ge nerated this result transmit arvind reference range : <=37. The reference range was not used to interpr et this result as mario l/abnormal. [place] 846002-07-21 05:01:00 Test Item Value Reference Range Interpretation Comments Alk Phos (test code = Alk Phos) 60 39-136 [place] 846002-07-21 05:01:00 Test Item Value Reference Range Interpretation Comments Bili Total (test code = Bili Total) 0.2 0.2-1.3 [place] 846002-07-21 05:01:00 Test Item Value Reference Range Interpretation Comments AGAP (test code = AGAP) 9.6 10.0-20.0 [place] 846002-07-21 05:01:00 Test Item Value Reference Range Interpretation Comments B/C Ratio (test code = B/C Ratio) 22 1 6-25 [place] 846002-07-21 05:01:00 Test Item Value Reference Range Interpretation Comments Globulin (test code = Globulin) 3.5 2.7-4.2 [facility]2022-07-21 05:01:00 Test Item Value Reference Range Interpretation Comments A/G Ratio (test code = A/G Ratio) 1.1 1 0.7-1.6 [place] 846002-07-21 05:01:00 Test Item Value Reference Range Interpretation Comments eGFR (test code = eGFR) 112 [facility] HeightsEbqzvemXTADTYIMXQ4507-02-79 05:01:00 Test Item Value Reference Range Interpretation Comments WBC (test code = WBC) 6.4 3.7-10.4 [place] 308112-07-21 05:01:00 Test Item Value Reference Range Interpretation Comments RBC (test code = RBC) 5.28 4.20-5.40 [place] 308112-07-21 05:01:00 Test Item Value Reference Range Interpretation Comments Hgb (test code = Hgb) 14.1 12.0-16.0 [place] 308112-07-21 05:01:00 Test Item Value Reference Range Interpretation Comments Hct (test code = Hct) 43.0 36.0-48.0 [place] 308112-07-21 05:01:00 Test Item Value Reference Range Interpretation Comments MCV (test code = MCV) 81.4 80.0-98.0 [facility] HeightsZmfucprRXREZJZONG4514-05-80 05:01:00 Test Item Value Reference Range Interpretation Comments MCH (test code = MCH) 26.7 pg 27.0-31.0 [facility] HeightsRnplmdoOBIJNGIRIH5901-41-17 05:01:00 Test Item Value Reference Range Interpretation Comments MCHC (test code = MCHC) 32.9 32.0-36.0 [facility] HeightsXpoxqxyXHMWYOWTLJ0422-07-04 05:01:00 Test Item Value Reference Range Interpretation Comments RDW (test code = RDW) 14.1 11.5-14.5 [facility] HeightsWsdjlywZUHGKHGVZT2745-51-39 05:01:00 Test Item Value Reference Range Interpretation Comments Platelet (test code = Platelet) 237 133-450 [facility] HeightsDbiwrmdPBYIYHDCPS8971-94-33 05:01:00 Test Item Value Reference Range Interpretation Comments MPV (test code = MPV) 9.1 7.4-10.4 [facility] HeightsBehzpasDPCNLJPNVL9378-53-79 05:01:00 Test Item Value Reference Range Interpretation Comments PT (test code = PT) 12.4 s 12.0-14.7 [facility] HeightsJdbapyfXSYVBZONMW0194-93-00 05:01:00 Test Item Value Reference Range Interpretation Comments INR (test code = INR) 0.93 1 0.85-1.17 [facility] HeightsMbmkfmpPYJCVVGMIT3010-14-87 05:01:00 Test Item Value Reference Range Interpretation Comments PTT (test code = PTT) 26.5 s 22.9-35.8 [facility] HeightsMjrawboSNOIBXDJIV6874-85-79 05:01:00 Test Item Value Reference Range Interpretation Comments Segs (test code = Segs) 40.0 45.0-75.0 [facility] HeightsDgfpjltJJIIRLQIAK0339-25-75 05:01:00 Test Item Value Reference Range Interpretation Comments Lymphocytes (test code = Lymphocytes) 49.7 20.0-40.0 [facility] HeightsSphnritZDJMVNIERE5194-00-10 05:01:00 Test Item Value Reference Range Interpretation Comments Monocytes (test code = Monocytes) 8.5 2.0-12.0 [facility] HeightsJwwyflbRZFQBONYDP1433-38-73 05:01:00 Test Item Value Reference Range Interpretation Comments Eosinophils (test code = 1.0 See_Comment [A utomated message] The Eosinophils) system which ge nerated this result tra nsmitted reference range : <=4.0. The reference r kat was not used to int erpret this result as normal/abnormal . [facility]JgzbqzrHTTPRSURPO5277-34-43 05:01:00 Test Item Value Reference Range Interpretation Comments Basophils (test code = 0.8 See_Comment [Aut omated message] The Basophils) system which ge nerated this result tra nsmitted reference range : <=1.0. The reference r kat was not used to int erpret this result as normal/abnormal . [facility]awBuucvkwIDYEHCVLTZ4624-81-87 05:01:00 Test Item Value Reference Range Interpretation Comments Neutrophils # (test code = Neutrophils 2.5 1.5-8.1 #) [facility]VbsotohCDAJHIIEDF0518-91-32 05:01:00 Test Item Value Reference Range Interpretation Comments Lymphocytes # (test code = Lymphocytes 3.2 1.0-5.5 #) [facility] HeightsDdlnavzAAFBSXXPCH1112-42-89 05:01:00 Test Item Value Reference Range Interpretation Comments Monocytes # (test code 0.5 See_Comment [Aut omated message] The = Monocytes #) system which generated this result tra nsmitted reference range : <=0.8. The reference r kat was not used to int erpret this result as normal/abnormal . [facility] HeightsByjshtjUPSGMDIALG9740-76-27 05:01:00 Test Item Value Reference Range Interpretation Comments Eosinophils # (test code 0.1 See_Comment [A utomated message] The = Eosinophils #) system whic h generated this result tra nsmitted reference range : <=0.5. The reference r kat was not used to int erpret this result as normal/abnormal . [facility] AFGFXMG3486[facility]47-35 05:01:00 Test Item Value Reference Range Interpretation Comments HS Troponin I (test code = HS Troponin 5 I) [facility] [id number] 05:01:00 Test Item Value Reference Range Interpretation Comments Glucose Lvl (test code = Glucose Lvl) 96 70-99 [facility]Cont[facility] CNCDX2015-20-72 05:01:00 Test Item Value Reference Range Interpretation Comments BUN (test code = BUN) 16 7-22 [facility] WLJQW7519-58-45 05:01:00 Test Item Value Reference Range Interpretation Comments Creatinine Lvl (test code = Creatinine 0.73 0.50-1.40 Lvl) [place] 846002-07-21 05:01:00 Test Item Value Reference Range Interpretation Comments Sodium Lvl (test code = Sodium Lvl) 141 135-145 [place] 846002-07-21 05:01:00 Test Item Value Reference Range Interpretation Comments Potassium Lvl (test code = Potassium 3.6 3.5-5.1 Lvl) [place] 846002-07-21 05:01:00 Test Item Value Reference Range Interpretation Comments Chloride Lvl (test code = Chloride Lvl) 110 95-109 [place] 846002-07-21 05:01:00 Test Item Value Reference Range Interpretation Comments CO2 (test code = CO2) 25 24-32 [place] 846002-07-21 05:01:00 Test Item Value Reference Range Interpretation Comments Calcium Lvl (test code = Calcium Lvl) 9.3 8.5-10.5 [place] 846002-07-21 05:01:00 Test Item Value Reference Range Interpretation Comments Total Protein (test code = Total 7.2 6.4-8.4 Protein) [place] 846002-07-21 05:01:00 Test Item Value Reference Range Interpretation Comments Albumin Lvl (test code = Albumin Lvl) 3.7 3.5-5.0 [place] 846002-07-21 05:01:00 Test Item Value Reference Range Interpretation Comments ALT (test code = ALT) 59 See_Comment [Auto mated message] The system which nerated this result transmit arvind reference range : <=65. The reference range was not used to interpr et this result as mario l/abnormal. [place] 846002-07-21 05:01:00 Test Item Value Reference Range Interpretation Comments AST (test code = AST) 24 See_Comment [Auto mated message] The system which [employer] nerated this result transmit arvind reference range : <=37. The reference range was not used to interpr et this result as mario l/abnormal. [place] 846002-07-21 05:01:00 Test Item Value Reference Range Interpretation Comments Alk Phos (test code = Alk Phos) 60 39-136 [place] 846002-07-21 05:01:00 Test Item Value Reference Range Interpretation Comments Bili Total (test code = Bili Total) 0.2 0.2-1.3 [place] 846002-07-21 05:01:00 Test Item Value Reference Range Interpretation Comments AGAP (test code = AGAP) 9.6 10.0-20.0 [facility]2022-07-21 05:01:00 Test Item Value Reference Range Interpretation Comments B/C Ratio (test code = B/C Ratio) 22 1 6-25 [place] 846002-07-21 05:01:00 Test Item Value Reference Range Interpretation Comments Globulin (test code = Globulin) 3.5 2.7-4.2 [facility]2022-07-21 05:01:00 Test Item Value Reference Range Interpretation Comments A/G Ratio (test code = A/G Ratio) 1.1 1 0.7-1.6 [place] 846002-07-21 05:01:00 Test Item Value Reference Range Interpretation Comments eGFR (test code = eGFR) 112 [facility] HeightsAqhyvykIBDYLPGHBO6460-52-36 05:01:00 Test Item Value Reference Range Interpretation Comments WBC (test code = WBC) 6.4 3.7-10.4 [place] 308112-07-21 05:01:00 Test Item Value Reference Range Interpretation Comments RBC (test code = RBC) 5.28 4.20-5.40 [place] 308112-07-21 05:01:00 Test Item Value Reference Range Interpretation Comments Hgb (test code = Hgb) 14.1 12.0-16.0 [place] 308112-07-21 05:01:00 Test Item Value Reference Range Interpretation Comments Hct (test code = Hct) 43.0 36.0-48.0 [place] [place] 308112-[place]-21 05:01:00 Test Item Value Reference Range Interpretation Comments MCV (test code = MCV) 81.4 80.0-98.0 [place] 308112-07-21 05:01:00 Test Item Value Reference Range Interpretation Comments MCH (test code = MCH) 26.7 pg 27.0-31.0 [place] 308112-07-21 05:01:00 Test Item Value Reference Range Interpretation Comments MCHC (test code = MCHC) 32.9 32.0-36.0 [facility]MwvgxnbCNSUCAQKTH6808-81-71 05:01:00 Test Item Value Reference Range Interpretation Comments RDW (test code = RDW) 14.1 11.5-14.5 [place] 308112-07-21 05:01:00 Test Item Value Reference Range Interpretation Comments Platelet (test code = Platelet) 237 133-450 [facility] HeightsQrcjscmDAWWCZISJD5561-85-46 05:01:00 Test Item Value Reference Range Interpretation Comments MPV (test code = MPV) 9.1 7.4-10.4 [place] 308112-07-21 05:01:00 Test Item Value Reference Range Interpretation Comments PT (test code = PT) 12.4 s 12.0-14.7 [place] 308112-07-21 05:01:00 Test Item Value Reference Range Interpretation Comments INR (test code = INR) 0.93 1 0.85-1.17 [facility] HeightsQekwyteJCREJDGFPM8975-97-54 05:01:00 Test Item Value Reference Range Interpretation Comments PTT (test code = PTT) 26.5 s 22.9-35.8 [place] 308112-07-21 05:01:00 Test Item Value Reference Range Interpretation Comments Segs (test code = Segs) 40.0 45.0-75.0 [facility] HeightsWjotepoJZDFMJNXNM5300-76-40 05:01:00 Test Item Value Reference Range Interpretation Comments Lymphocytes (test code = Lymphocytes) 49.7 20.0-40.0 [facility] HeightsCvzpctyKEKYHSTPBE0048-92-08 05:01:00 Test Item Value Reference Range Interpretation Comments Monocytes (test code = Monocytes) 8.5 2.0-12.0 [place] 308112-07-21 05:01:00 Test Item Value Reference Range Interpretation Comments Eosinophils (test code = 1.0 See_Comment [A utomated message] The Eosinophils) system which ge nerated this result tra nsmitted reference range : <=4.0. The reference r kat was not used to int erpret this result as normal/abnormal . [facility] HeightsHzeyoenWTQGNIHXFK4883-51-01 05:01:00 Test Item Value Reference Range Interpretation Comments Basophils (test code = 0.8 See_Comment [Aut omated message] The Basophils) system which ge nerated this result tra nsmitted reference range : <=1.0. The reference r kat was not used to int erpret this result as normal/abnormal . [facility] HeightsMcldebtCSEMEQIWRX4417-12-65 05:01:00 Test Item Value Reference Range Interpretation Comments Neutrophils # (test code = Neutrophils 2.5 1.5-8.1 #) [facility] HeightsSiltkipFNZCIDZXOY7090-37-74 05:01:00 Test Item Value Reference Range Interpretation Comments Lymphocytes # (test code = Lymphocytes 3.2 1.0-5.5 #) [facility] HeightsRsxnauaDTSYMFVHNU1356-19-16 05:01:00 Test Item Value Reference Range Interpretation Comments Monocytes # (test code 0.5 See_Comment [Aut omated message] The = Monocytes #) system which generated this result tra nsmitted reference range : <=0.8. The reference r kat was not used to int erpret this result as normal/abnormal . [facility] HeightsBntvsxuDCXVGXRYWE5624-93-89 05:01:00 Test Item Value Reference Range Interpretation Comments Eosinophils # (test code 0.1 See_Comment [A utomated message] The = Eosinophils #) system whic h generated this result tra nsmitted reference range : <=0.5. The reference r kat was not used to int erpret this result as normal/abnormal . [facility] R[facility]ASB1579[facility]94[facility]01 05:01:00 Test Item Value Reference Range Interpretation Comments HS Troponin I (test code = HS Troponin 5 I) [facility]2022-07-21 05:01:00 Test Item Value Reference Range Interpretation Comments Glucose Lvl (test code = Glucose Lvl) 96 70-99 [facility]2022-07-21 05:01:00 Test Item Value Reference Range Interpretation Comments BUN (test code = BUN) 16 7-22 [facility]2022-07-21 05:01:00 Test Item Value Reference Range Interpretation Comments Creatinine Lvl (test code = Creatinine 0.73 0.50-1.40 Lvl) [facility]2022-07-21 05:01:00 Test Item Value Reference Range Interpretation Comments Sodium Lvl (test code = Sodium Lvl) 141 135-145 [facility]KO6680[facility] 05:01:00 Test Item Value Reference Range Interpretation Comments Potassium Lvl (test code = Potassium 3.6 3.5-5.1 Lvl) [place] 846002-07-21 05:01:00 Test Item Value Reference Range Interpretation Comments Chloride Lvl (test code = Chloride Lvl) 110 95-109 [place] 846002-07-21 05:01:00 Test Item Value Reference Range Interpretation Comments CO2 (test code = CO2) 25 24-32 [place] 846002-07-21 05:01:00 Test Item Value Reference Range Interpretation Comments Calcium Lvl (test code = Calcium Lvl) 9.3 8.5-10.5 [place] 846002-07-21 05:01:00 Test Item Value Reference Range Interpretation Comments Total Protein (test code = Total 7.2 6.4-8.4 Protein) [place] 846002-07-21 05:01:00 Test Item Value Reference Range Interpretation Comments Albumin Lvl (test code = Albumin Lvl) 3.7 3.5-5.0 [place] 846002-07-21 05:01:00 Test Item Value Reference Range Interpretation Comments ALT (test code = ALT) 59 See_Comment [Auto mated message] The system which ge nerated this result transmit arvind reference range : <=65. The reference range was not used to interpr et this result as mario l/abnormal. [place] 846002-07-21 05:01:00 Test Item Value Reference Range Interpretation Comments AST (test code = AST) 24 See_Comment [Auto mated message] The system which ge nerated this result transmit arvind reference range : <=37. The reference range was not used to interpr et this result as mario l/abnormal. [place] 846002-07-21 05:01:00 Test Item Value Reference Range Interpretation Comments Alk Phos (test code = Alk Phos) 60 39-136 [place] 846002-07-21 05:01:00 Test Item Value Reference Range Interpretation Comments Bili Total (test code = Bili Total) 0.2 0.2-1.3 [place] 846002-07-21 05:01:00 Test Item Value Reference Range Interpretation Comments AGAP (test code = AGAP) 9.6 10.0-20.0 [facility]2022-07-21 05:01:00 Test Item Value Reference Range Interpretation Comments B/C Ratio (test code = B/C Ratio) 22 1 6-25 [facility]2022-07-21 05:01:00 Test Item Value Reference Range Interpretation Comments Globulin (test code = Globulin) 3.5 2.7-4.2 [facility]2022-07-21 05:01:00 Test Item Value Reference Range Interpretation Comments A/G Ratio (test code = A/G Ratio) 1.1 1 0.7-1.6 [facility]2022-07-21 05:01:00 Test Item Value Reference Range Interpretation Comments eGFR (test code = eGFR) 112 [facility] HeightsWfqmajkBKPIREOCQM9789-72-08 05:01:00 Test Item Value Reference Range Interpretation Comments WBC (test code = WBC) 6.4 3.7-10.4 [place] 308112-07-21 05:01:00 Test Item Value Reference Range Interpretation Comments RBC (test code = RBC) 5.28 4.20-5.40 [facility] HeightsHoliiohZWAAAAVAGT2208-23-38 05:01:00 Test Item Value Reference Range Interpretation Comments Hgb (test code = Hgb) 14.1 12.0-16.0 [facility] HeightsEnwfgdeTQCJCDFYUA2483-61-95 05:01:00 Test Item Value Reference Range Interpretation Comments Hct (test code = Hct) 43.0 36.0-48.0 [facility] HeightsVmnpqjcNFVIMOTEVT0195-02-76 05:01:00 Test Item Value Reference Range Interpretation Comments MCV (test code = MCV) 81.4 80.0-98.0 [place] 308112-07-21 05:01:00 Test Item Value Reference Range Interpretation Comments MCH (test code = MCH) 26.7 pg 27.0-31.0 [place] 308112-07-21 05:01:00 Test Item Value Reference Range Interpretation Comments MCHC (test code = MCHC) 32.9 32.0-36.0 [place] 308112-07-21 05:01:00 Test Item Value Reference Range Interpretation Comments RDW (test code = RDW) 14.1 11.5-14.5 [place] 308112-07-21 05:01:00 Test Item Value Reference Range Interpretation Comments Platelet (test code = Platelet) 237 133-450 [facility] HeightsYurhoigKQGVYGCNQW3265-01-52 05:01:00 Test Item Value Reference Range Interpretation Comments MPV (test code = MPV) 9.1 7.4-10.4 [place] 308112-07-21 05:01:00 Test Item Value Reference Range Interpretation Comments PT (test code = PT) 12.4 s 12.0-14.7 [facility] HeightsIfjyvudPPKQKHOIUA9584-98-61 05:01:00 Test Item Value Reference Range Interpretation Comments INR (test code = INR) 0.93 1 0.85-1.17 [place] 308112-07-21 05:01:00 Test Item Value Reference Range Interpretation Comments PTT (test code = PTT) 26.5 s 22.9-35.8 [place] 308112-07-21 05:01:00 Test Item Value Reference Range Interpretation Comments Segs (test code = Segs) 40.0 45.0-75.0 [facility] HeightsHhhxqcwZYQJAGKUQW4924-11-15 05:01:00 Test Item Value Reference Range Interpretation Comments Lymphocytes (test code = Lymphocytes) 49.7 20.0-40.0 [facility] HeightsDidvejzFSBJENQNTD5895-34-16 05:01:00 Test Item Value Reference Range Interpretation Comments Monocytes (test code = Monocytes) 8.5 2.0-12.0 [facility] HeightsIupgvdgNSLLLDGZPX6783-33-44 05:01:00 Test Item Value Reference Range Interpretation Comments Eosinophils (test code = 1.0 See_Comment [A utomated message] The Eosinophils) system which ge nerated this result tra nsmitted reference range : <=4.0. The reference r kat was not used to int erpret this result as normal/abnormal . [facility] HeightsVajcamsIYFTDXNRRT1105-15-72 05:01:00 Test Item Value Reference Range Interpretation Comments Basophils (test code = 0.8 See_Comment [Aut omated message] The Basophils) system which ge nerated this result tra nsmitted reference range : <=1.0. The reference r kat was not used to int erpret this result as normal/abnormal . [facility] HeightsJdzayhxEBCGYUGWUS5354-45-95 05:01:00 Test Item Value Reference Range Interpretation Comments Neutrophils # (test code = Neutrophils 2.5 1.5-8.1 #) [facility]QrpskzxSLDWHXDKRJ8987-94-70 05:01:00 Test Item Value Reference Range Interpretation Comments Lymphocytes # (test code = Lymphocytes 3.2 1.0-5.5 #) [facility] HeightsDlwviuxWEODZLFJCS2607-86-52 05:01:00 Test Item Value Reference Range Interpretation Comments Monocytes # (test code 0.5 See_Comment [Aut omated message] The = Monocytes #) system which generated this result tra nsmitted reference range : <=0.8. The reference r kat was not used to int erpret this result as normal/abnormal . [facility]BliorrvVGGEBVAGLY1574-46-31 05:01:00 Test Item Value Reference Range Interpretation Comments Eosinophils # (test code 0.1 See_Comment [A utomated message] The = Eosinophils #) system whic h generated this result tra nsmitted reference range : <=0.5. The reference r kat was not used to int erpret this result as normal/abnormal . [facility] IEMMNQY8721-27-99 05:01:00 Test Item Value Reference Range Interpretation Comments HS Troponin I (test code = HS Troponin 5 I) [facility] QWQOJ6363-17-12 05:01:00 Test Item Value Reference Range Interpretation Comments Glucose Lvl (test code = Glucose Lvl) 96 70-99 [facility] HMCLH7812-73-20 05:01:00 Test Item Value Reference Range Interpretation Comments BUN (test code = BUN) 16 7-22 [facility] CQAXA4901-21-58 05:01:00 Test Item Value Reference Range Interpretation Comments Creatinine Lvl (test code = Creatinine 0.73 0.50-1.40 Lvl) [facility] [id number] 05:01:00 Test Item Value Reference Range Interpretation Comments Sodium Lvl (test code = Sodium Lvl) 141 135-145 [facility] [id number] 05:01:00 Test Item Value Reference Range Interpretation Comments Potassium Lvl (test code = Potassium 3.6 3.5-5.1 Lvl) [facility] [id number] 05:01:00 Test Item Value Reference Range Interpretation Comments Chloride Lvl (test code = Chloride Lvl) 110 95-109 [place] 846002-07-21 05:01:00 Test Item Value Reference Range Interpretation Comments CO2 (test code = CO2) 25 24-32 [place] 846002-07-21 05:01:00 Test Item Value Reference Range Interpretation Comments Calcium Lvl (test code = Calcium Lvl) 9.3 8.5-10.5 [place] 846002-07-21 05:01:00 Test Item Value Reference Range Interpretation Comments Total Protein (test code = Total 7.2 6.4-8.4 Protein) [place] 846002-07-21 05:01:00 Test Item Value Reference Range Interpretation Comments Albumin Lvl (test code = Albumin Lvl) 3.7 3.5-5.0 [place] 846002-07-21 05:01:00 Test Item Value Reference Range Interpretation Comments ALT (test code = ALT) 59 See_Comment [Auto mated message] The system which ge nerated this result transmit arvind reference range : <=65. The reference range was not used to interpr et this result as mario l/abnormal. [place] 846002-07-21 05:01:00 Test Item Value Reference Range Interpretation Comments AST (test code = AST) 24 See_Comment [Auto mated message] The system which ge nerated this result transmit arvind reference range : <=37. The reference range was not used to interpr et this result as mario l/abnormal. [place] 846002-07-21 05:01:00 Test Item Value Reference Range Interpretation Comments Alk Phos (test code = Alk Phos) 60 39-136 [place] 846002-07-21 05:01:00 Test Item Value Reference Range Interpretation Comments Bili Total (test code = Bili Total) 0.2 0.2-1.3 [place] 846002-07-21 05:01:00 Test Item Value Reference Range Interpretation Comments AGAP (test code = AGAP) 9.6 10.0-20.0 [place] 846002-07-21 05:01:00 Test Item Value Reference Range Interpretation Comments B/C Ratio (test code = B/C Ratio) 22 1 6-25 [place] 846002-07-21 05:01:00 Test Item Value Reference Range Interpretation Comments Globulin (test code = Globulin) 3.5 2.7-4.2 [facility] [id number] 05:01:00 Test Item Value Reference Range Interpretation Comments A/G Ratio (test code = A/G Ratio) 1.1 1 0.7-1.6 [facility] [id number] 05:01:00 Test Item Value Reference Range Interpretation Comments eGFR (test code = eGFR) 112 [facility] HeightsQckmeteXXJKPWESJJ3654-44-86 05:01:00 Test Item Value Reference Range Interpretation Comments WBC (test code = WBC) 6.4 3.7-10.4 [facility] HeightsVhjgfwiVQGRPSCZXQ6890-73-54 05:01:00 Test Item Value Reference Range Interpretation Comments RBC (test code = RBC) 5.28 4.20-5.40 [facility] HeightsQbqcfamXFDKWINDXE7120-56-47 05:01:00 Test Item Value Reference Range Interpretation Comments Hgb (test code = Hgb) 14.1 12.0-16.0 [facility] HeightsMucowjdMSPDSQNULP6251-58-81 05:01:00 Test Item Value Reference Range Interpretation Comments Hct (test code = Hct) 43.0 36.0-48.0 [facility] HeightsUozqlkpJKCEHLGGGT5763-88-86 05:01:00 Test Item Value Reference Range Interpretation Comments MCV (test code = MCV) 81.4 80.0-98.0 [facility] HeightsYxsltwnNZFKIZRICF9408-79-54 05:01:00 Test Item Value Reference Range Interpretation Comments MCH (test code = MCH) 26.7 pg 27.0-31.0 [facility] HeightsJyqrbepVAHPIDOLEC4790-47-57 05:01:00 Test Item Value Reference Range Interpretation Comments MCHC (test code = MCHC) 32.9 32.0-36.0 [facility] HeightsWmeuudtRGXOPWZOWT7297-29-96 05:01:00 Test Item Value Reference Range Interpretation Comments RDW (test code = RDW) 14.1 11.5-14.5 [facility] HeightsWcgcfsjEIIKWBSTOP6924-95-49 05:01:00 Test Item Value Reference Range Interpretation Comments Platelet (test code = Platelet) 237 133-450 [facility] HeightsAopvbhqLCMTLAAPNA1959-13-77 05:01:00 Test Item Value Reference Range Interpretation Comments MPV (test code = MPV) 9.1 7.4-10.4 [facility] HeightsDwszlmvTKAJQJSITV5081-43-23 05:01:00 Test Item Value Reference Range Interpretation Comments PT (test code = PT) 12.4 s 12.0-14.7 [facility] HeightsHixzyzuSZWODEBUKT3275-08-15 05:01:00 Test Item Value Reference Range Interpretation Comments INR (test code = INR) 0.93 1 0.85-1.17 [place] 308112-07-21 05:01:00 Test Item Value Reference Range Interpretation Comments PTT (test code = PTT) 26.5 s 22.9-35.8 [place] 308112-07-21 05:01:00 Test Item Value Reference Range Interpretation Comments Segs (test code = Segs) 40.0 45.0-75.0 [place] 308112-07-21 05:01:00 Test Item Value Reference Range Interpretation Comments Lymphocytes (test code = Lymphocytes) 49.7 20.0-40.0 [place] 308112-07-21 05:01:00 Test Item Value Reference Range Interpretation Comments Monocytes (test code = Monocytes) 8.5 2.0-12.0 [facility] HeightsXhdddqqMQJQSSSUQG0493-15-45 05:01:00 Test Item Value Reference Range Interpretation Comments Eosinophils (test code = 1.0 See_Comment [A utomated message] The Eosinophils) system which ge nerated this result tra nsmitted reference range : <=4.0. The reference r kat was not used to int erpret this result as normal/abnormal . [facility] HeightsZgnomkbCIPMVUTSSW3692-99-74 05:01:00 Test Item Value Reference Range Interpretation Comments Basophils (test code = 0.8 See_Comment [Aut omated message] The Basophils) system which ge nerated this result tra nsmitted reference range : <=1.0. The reference r kat was not used to int erpret this result as normal/abnormal . [facility] HeightsPyjhdjqKOIIYQPGZJ0176-37-49 05:01:00 Test Item Value Reference Range Interpretation Comments Neutrophils # (test code = Neutrophils 2.5 1.5-8.1 #) [facility] HeightsWibfuxwIUHXVGMLDR8343-02-91 05:01:00 Test Item Value Reference Range Interpretation Comments Lymphocytes # (test code = Lymphocytes 3.2 1.0-5.5 #) [facility] HeightsRquuuhmQAIUOITJLZ6636-64-70 05:01:00 Test Item Value Reference Range Interpretation Comments Monocytes # (test code 0.5 See_Comment [Aut omated message] The = Monocytes #) system which generated this result tra nsmitted reference range : <=0.8. The reference r kat was not used to int erpret this result as normal/abnormal . [facility] HeightsWpvkaprXEJAMLPORY8123-89-93 05:01:00 Test Item Value Reference Range Interpretation Comments Eosinophils # (test code 0.1 See_Comment [A utomated message] The = Eosinophils #) system whic h generated this result tra nsmitted reference range : <=0.5. The reference r kat was not used to int erpret this result as normal/abnormal . [facility]UjbshnoQWOLSZUMPZ6372-87-71 02:18:00 Test Item Value Reference Range Interpretation Comments Coronavirus (COVID-19) Detected MARLYN (test code = 1*ABN*(03/13/22 9:18 Coronavirus (COVID-19) PM) MARLYN) [facility]leQdjddmpWEVIYRCYKU3991-12-15 02:18:00 Test Item Value Reference Range Interpretation Comments Coronavirus (COVID-19) Detected MARLYN (test code = 1*ABN*(03/13/22 9:18 Coronavirus (COVID-19) PM) MARLYN) [facility]leJlrijghJVQXORMTHV0730-43-99 02:18:00 Test Item Value Reference Range Interpretation Comments Coronavirus (COVID-19) Detected MARLYN (test code = 1*ABN*(03/13/22 9:18 Coronavirus (COVID-19) PM) MARLYN) [facility]leKdtocjpRRFREAOKDU4539-02-74 02:18:00 Test Item Value Reference Range Interpretation Comments Coronavirus (COVID-19) Detected MARLYN (test code = 1*ABN*(03/13/22 9:18 Coronavirus (COVID-19) PM) MARLYN) [place] 123302-07-16 02:18:00 Test Item Value Reference Range Interpretation Comments Coronavirus (COVID-19) Detected MARLYN (test code = 1*ABN*(03/13/22 9:18 Coronavirus (COVID-19) PM) MARLYN) [place] 123302-07-16 02:18:00 Test Item Value Reference Range Interpretation Comments Coronavirus (COVID-19) Detected MARLYN (test code = 1*ABN*(03/13/22 9:18 Coronavirus (COVID-19) PM) MARLYN) [facility] AzleZpwmyrbXZIGYAVAQD8527-58-29 02:18:00 Test Item Value Reference Range Interpretation Comments Coronavirus (COVID-19) Detected MARLYN (test code = 1*ABN*(03/13/22 9:18 Coronavirus (COVID-19) PM) MARLYN) [facility]leRtirqdaWYCDDLCEGH6480-07-74 02:18:00 Test Item Value Reference Range Interpretation Comments Coronavirus (COVID-19) Detected MARLYN (test code = 1*ABN*(03/13/22 9:18 Coronavirus (COVID-19) PM) MARLYN) [place] 6[address]85-07-16 02:18:00 Test Item Value Reference Range Interpretation Comments Coronavirus (COVID-19) Detected MARLYN (test code = 1*ABN*(03/13/22 9:18 Coronavirus (COVID-19) PM) MARLYN) [facility]leHizureoHLDTSVVKRH6550-70-94 02:18:00 Test Item Value Reference Range Interpretation Comments Coronavirus (COVID-19) Detected MARLYN (test code = 1*ABN*(03/13/22 9:18 Coronavirus (COVID-19) PM) MARLYN) [facility]leHaodejnDRIXOUAACK3772-00-92 02:18:00 Test Item Value Reference Range Interpretation Comments Coronavirus (COVID-19) Detected MARLYN (test code = 1*ABN*(03/13/22 9:18 Coronavirus (COVID-19) PM) MARLYN) [facility]leVxcnuelVVAQUAJLDH1813-44-18 02:18:00 Test Item Value Reference Range Interpretation Comments Coronavirus (COVID-19) Detected MARLYN (test code = 1*ABN*(03/13/22 9:18 Coronavirus (COVID-19) PM) MARLYN) [facility]leEhzjxndSXTDMCGIDD4093-21-11 02:18:00 Test Item Value Reference Range Interpretation Comments Coronavirus (COVID-19) Detected MARLYN (test code = 1*ABN*(03/13/22 9:18 Coronavirus (COVID-19) PM) MARLYN) [facility]leCfkkdcaDQZACNRDCL0661-63-96 02:18:00 Test Item Value Reference Range Interpretation Comments Coronavirus (COVID-19) Detected MARLYN (test code = 1*ABN*(03/13/22 9:18 Coronavirus (COVID-19) PM) MARLYN) [facility]byj[facility]awWCNWVFEYSU9580-57-01 02:18:00 Test Item Value Reference Range Interpretation Comments Coronavirus (COVID-19) Detected MARLYN (test code = 1*ABN*(03/13/22 9:18 Coronavirus (COVID-19) PM) MARLYN) [facility]FgljmlvGPSOBWRUXL4439-17-23 02:18:00 Test Item Value Reference Range Interpretation Comments Coronavirus (COVID-19) Detected MARLYN (test code = 1*ABN*(03/13/22 9:18 Coronavirus (COVID-19) PM) MARLYN) [facility] MARLYN+dzbuv9996-23-61 03:21:53 Test Item Value Reference Range Interpretation Comments Symptomatic as defined by CDC? (test code = 82081-0) Employed in No Healthcare? (test code = 82702-2) Resident in a No congregate care setting (including nursing homes, residential care for people with intellectual and developmental disabilities, psychiatric treatment facilities, group homes, board and care homes, homeless nursing home, foster care or other): (test code = 22593-9) ? (test code = No 54909-3) SARS-CoV-2 RNA Nph Ql NOT DETECTED Not Detected The novel MARLYN+probe (test code = coron avirus 54593-1) (SARS-CoV-2) ta rget nucleic acids a re not detected. COMMENT: The [employer] SARS-CoV-2 real-time RT-PCR based diagnostic test intended for the qualitative detection of SARS-CoV-2 viral RNA in a nasopharyngeal swab during acute phase of infection. This test was developed and its performance characteristics have been determined by the [facility]. This test has not been cleared or approved by the FDA. This testsystem has been authorized by the FDA under an Emergency Use Authorization (EUA). This test has beenvalidated in accordance with the FDA\\PG29722\\s Guidance document \\IV4526M\\Policy for Coronavirus Disease-2019 Tests During the Public Health Emergency\\CP9103V\\ (Revised December 2019) and is used for clinical purposes. It should not be regarded as investigational or for research\\[id number]\\Detected\\[id number]\\ results are indicative of the presence of the identified virus, but do not rule out bacterial infection or co-infection with other pathogens not detected by the test. Clinical correlation with patient his tory and other diagnostic information is necessary to determine patient infection status. \\[id number]\\Not Detected\\[id number]\\ results do not preclude SARS-CoV-2 and should not be used as the sole basis for treatment or other patient management decisions. Negative results must be combined with clinical observations, patient history, and/or epidemiological information.This laboratory is certified under the Clinical Laboratory Improvement Amendments (CLIA) as qualified to perform high complexity clinical laboratory testing.[facility] SARS-CoV-2 ORF1ab Resp Ql MARLYN+kxjel2569-72-84 01:19:53 Test Item Value Reference Range Interpretation Comments Symptomatic as defined No by CDC? (test code = 80286-6) Hospitalized? (test No code = 11203-3) ICU? (test code = No 81932-2) Employed in No Healthcare? (test code = 27030-7) Resident in a No congregate care setting (including nursing homes, residential care for people with intellectual and developmental disabilities, psychiatric treatment facilities, group homes, board and care homes, homeless nursing home, foster care or other): (test code = 52527-6) ? (test code = No 40945-0) SARS-CoV-2 ORF1ab Resp NOT DETECTED Not Detected INTER PRETATION: No Ql MARLYN+probe (test detectabl e levels code = 71213-7) of SARS-CoV- 2 Coronavirus (COVID-19) were present [...] n with SARS-CoV-2 Coronavirus (COVID-19). COMMENT: This [employer] SARS-CoV-2 molecular diagnostic assay utilizes Decorator Mannequin Mediated Amplification (TMA) technology to rapidly detect the SARS-CoV-2 (COVID-19) virus from respiratory samples. In accordance with the FDA's guidance document "Policy for Diagnostic Tests for Coronavirus Disease- 2019 during the Public Health Emergency", this test was developed, and its performance characteristics were verified by the [facility] molecular diagnostics laboratory and is authorized [...] actual/normal in Platelet poor plasma by Coagulation [id number] 00:00:00 Test Item Value Reference Range Interpretation Comments fact. VIII act. (test code = fact. VIII 106 act.) [facility] Medical[facility] Willebrand factor (vWf).activity [Units/volume] in Platelet poor plasma by Nejiqrgbvkp6763-74-75 00:00:00 Test Item Value Reference Range Interpretation Comments ristocetin cofactor (test code = 57 ristocetin cofactor) [facility] MedicalaPTT in Platelet poor plasma by Coagulation bmblo2900-21-16 00:00:00 Test Item Value Reference Range Interpretation Comments PTT (test code = PTT) 28.5 sec 23.6-31.6 [facility] MedicalAndrostenedione [Mass/volume] in Serum or Eqsarm1804-54-61 00:00:00 Test Item Value Reference Range Interpretation Comments androstenedione (1) (test code = 20 NG/dL androstenedione (1)) [facility] MedicalPT/[id number] 00:00:00 Test Item Value Reference Range Interpretation Comments INR (test code = INR) 0.96 0.80-1.06 PT (test code = PT) 10.9 sec 9.1-11.9 [facility] Uukapce10-Xpgxyrjbhvwuoisfgxe [Mass/volume] in Serum or Brttue4950-15-54 00:00:00 Test Item Value Reference Range Interpretation Comments 17-hydroxyprogesterone (test code = <10 see below 17-hydroxyprogesterone) [facility] MedicalaPTT in Blood by Coagulation raadz2946-33-90 00:00:00 Test Item Value Reference Range Interpretation Comments P.T.T. (test code = P.T.T.) 30.9 [facility] Neisseria gonorrhoeae rRNA panel - Specimen by MARLYN with probe pwldszymf3863-22-54 00:00:00 Test Item Value Reference Range Interpretation Comments aptima combo 2 swab (CT) (test code = CT neg negative aptima combo 2 swab (CT)) aptima combo 2 swab (GC) (test code = GC neg negative aptima combo 2 swab (GC)) [facility] vaginitis 2021-11-26 00:00:00 Test Item Value Reference Range Interpretation Comments bacterial vaginosis (test code = bv neg negative bacterial vaginosis) warner species (test code = C. spp neg negative warner species) warner glabrata (test code = C. gla neg negative warner glabrata) trichomonas vaginalis (CV/TV) trich pos negative A (test code = trichomonas vaginalis (CV/TV)) [facility] by Automated [id number] 00:00:00 Test Item Value Reference Range Interpretation [...] code = baso #) 0.0 10 0.0-0.2 [facility] MedicalThyrotropin [Units/volume] in Serum or Hqbyid0741-76-41 00:00:00 Test Item Value Reference Range Interpretation Comments TSH (test code = TSH) 2.010 uIU/mL 0.178-4.530 [facility] MedicalComprehensive metabolic 2000 panel - Serum or Zdsium1968-52-53 00:00:00 Test Item Value Reference Range Interpretation [...] 124.483 >60.000 (test code = eGFR mL/min/1.73A? chadian) [facility] MedicalTestosterone [Mass/volume] in Serum or Zbysgw7372-80-27 00:00:00 Test Item Value Reference Range Interpretation Comments testosterone (test code = testosterone) < 2.5 8.4-48.1 L [facility] MedicalDehydroepiandrosterone sulfate (DHEA-S) [Mass/volume] in Serum or Xwsicj5859-96-95 00:00:00 Test Item Value Reference Range Interpretation Comments DHEA-S (test code = DHEA-S) 43.1 ug/dL 98.8-340.0 L [facility] MedicalFollitropin and Lutropin panel [Units/volume] - Serum or Plasma 2021-11-26 00:00:00 Test Item Value Reference Range Interpretation Comments LH (test code = LH) 2.9 mIU/mL FSH (test code = FSH) 6.8 mIU/mL [facility] MedicalProlactin [Mass/volume] in Serum or Ntwbhf4325-86-11 00:00:00 Test Item Value Reference Range Interpretation Comments prolactin (test code = prolactin) 115.0 NG/mL 4.8-23.3 H [facility] MedicalLipid 1996 panel - Serum or Qvelpu4793-33-17 00:00:00 Test Item Value Reference Range Interpretation [...] Serum or Plasma (test code = 2089-1) [facility] MedicalSTI lpqqt9941-48-55 00:00:00 Test Item Value Reference Range Interpretation Comments HPV thinprep (test code = HPV negative negative thinprep) [facility], [id number] 00:00:00 Test Item Value Reference Range Interpretation Comments LMP date: (test code = 09/09/2021 LMP date:) Pap, liquid-based nilm nilm (test code = Pap, liquid-based) source (liquid-based cervical (which cytology): (test code includes endocervical) = source (liquid-based cytology):) [facility]2021-05-24 21:13:00 Test Item Value Reference Range Interpretation Comments Glucose Lvl (test code = Glucose Lvl) 89 70-99 [facility]2021-05-24 21:13:00 Test Item Value Reference Range Interpretation Comments BUN (test code = BUN) 8 7-22 [facility]2021-05-24 21:13:00 Test Item Value Reference Range Interpretation Comments Creatinine Lvl (test code = Creatinine 0.55 0.50-1.40 Lvl) [facility]2021-05-24 21:13:00 Test Item Value Reference Range Interpretation Comments Sodium Lvl (test code = Sodium Lvl) 140 135-145 [facility]2021-05-24 21:13:00 Test Item Value Reference Range Interpretation Comments Potassium Lvl (test code = Potassium 3.5 3.5-5.1 Lvl) [facility]2021-05-24 21:13:00 Test Item Value Reference Range Interpretation Comments Chloride Lvl (test code = Chloride Lvl) 109 95-109 [facility]2021-05-24 21:13:00 Test Item Value Reference Range Interpretation Comments CO2 (test code = CO2) 27 24-32 [facility]2021-05-24 21:13:00 Test Item Value Reference Range Interpretation Comments Calcium Lvl (test code = Calcium Lvl) 9.0 8.5-10.5 [facility]2021-05-24 21:13:00 Test Item Value Reference Range Interpretation Comments AGAP (test code = AGAP) 7.5 10.0-20.0 [facility]2021-05-24 21:13:00 Test Item Value Reference Range Interpretation Comments eGFR (test code = eGFR) 126 [facility]2021-05-24 21:13:00 Test Item Value Reference Range Interpretation Comments Lactic Acid Lvl (test code = Lactic 0.6 0.5-2.2 Acid Lvl) [facility]EM[facility]ZZWYIGW6684-93-59 21:13:00 Test Item Value Reference Range Interpretation Comments hCG Tot (test code = hCG Tot) no gt [facility]EbyxqaxXUNYVNTONX5891-30-77 21:13:00 Test Item Value Reference Range Interpretation Comments WBC X 10x3 (test code = WBC X 10x3) 7.9 3.7-10.4 [facility] HeightsDwtqcvlKCVPLKQYVB1405-87-88 21:13:00 Test Item Value Reference Range Interpretation Comments RBC X 10x6 (test code = RBC X 10x6) 4.80 4.20-5.40 [facility] HeightsNkjchmmLCJUZORWHA3481-19-17 21:13:00 Test Item Value Reference Range Interpretation Comments Hgb (test code = Hgb) 12.4 12.0-16.0 [facility] HeightsBxccnyoJXLOUGXULA0679-45-28 21:13:00 Test Item Value Reference Range Interpretation Comments Hct (test code = Hct) 37.9 36.0-48.0 [facility] HeightsRrujyhmOPLIUFPZUW2533-64-90 21:13:00 Test Item Value Reference Range Interpretation Comments MCV (test code = MCV) 78.9 80.0-98.0 [facility] HeightsWnrycmiLCFHOUNNIH3103-50-27 21:13:00 Test Item Value Reference Range Interpretation Comments MCH (test code = MCH) 25.7 pg 27.0-31.0 [facility] HeightsXlopoynEMDMFAQRUR0681-70-94 21:13:00 Test Item Value Reference Range Interpretation Comments MCHC (test code = MCHC) 32.6 32.0-36.0 [facility] HeightsDswfffrOPTFANVSAE0642-06-84 21:13:00 Test Item Value Reference Range Interpretation Comments RDW (test code = RDW) 15.5 11.5-14.5 [place] 308111-05-24 21:13:00 Test Item Value Reference Range Interpretation Comments Platelet (test code = Platelet) 243 133-450 [facility] HeightsYuqmuwpOWCKZIQUSW3285-85-69 21:13:00 Test Item Value Reference Range Interpretation Comments MPV (test code = MPV) 9.4 7.4-10.4 [facility] HeightsZjsjvxnVPANPXDGZG3552-24-81 21:13:00 Test Item Value Reference Range Interpretation Comments Segs (test code = Segs) 56.1 45.0-75.0 [place] 308111-05-24 21:13:00 Test Item Value Reference Range Interpretation Comments Lymphocytes (test code = Lymphocytes) 32.2 20.0-40.0 [place] 308111-05-24 21:13:00 Test Item Value Reference Range Interpretation Comments Monocytes (test code = Monocytes) 9.1 2.0-12.0 [place] 308111-05-24 21:13:00 Test Item Value Reference Range Interpretation Comments Eosinophils (test code = 2.2 See_Comment [A utomated message] The Eosinophils) system which ge nerated this result tra nsmitted reference range : <=4.0. The reference r kat was not used to int erpret this result as normal/abnormal . [place] [address]-05-24 21:13:00 Test Item Value Reference Range Interpretation Comments Basophils (test code = 0.4 See_Comment [Aut omated message] The Basophils) system which ge nerated this result tra nsmitted reference range : <=1.0. The reference r kat was not used to int erpret this result as normal/abnormal . [place] 308111-05-24 21:13:00 Test Item Value Reference Range Interpretation Comments Neutrophils # (test code = Neutrophils 4.4 1.5-8.1 #) [place] [address]-05-24 21:13:00 Test Item Value Reference Range Interpretation Comments Lymphocytes # (test code = Lymphocytes 2.5 1.0-5.5 #) [place] [address]-05-24 21:13:00 Test Item Value Reference Range Interpretation Comments Monocytes # (test code 0.7 See_Comment [Aut omated message] The = Monocytes #) system which generated this result tra nsmitted reference range : <=0.8. The reference r kat was not used to int erpret this result as normal/abnormal . [place] 308111-05-24 21:13:00 Test Item Value Reference Range Interpretation Comments Eosinophils # (test code 0.2 See_Comment [A utomated message] The = Eosinophils #) system wh h generated this result tra nsmitted reference range : <=0.5. The reference r kat was not used to int erpret this result as normal/abnormal . [facility]gkqbrsHULNSWDXRV5595-60-07 21:13:00 Test Item Value Reference Range Interpretation Comments Microcyte (test code = 1+ *ABN*(01/20/21 Microcyte) 4:13 PM) [place] 846001-05-24 21:13:00 Test Item Value Reference Range Interpretation Comments Glucose Lvl (test code = Glucose Lvl) 89 70-99 [place] 846001-05-24 21:13:00 Test Item Value Reference Range Interpretation Comments BUN (test code = BUN) 8 7-22 [place] 846001-05-24 21:13:00 Test Item Value Reference Range Interpretation Comments Creatinine Lvl (test code = Creatinine 0.55 0.50-1.40 Lvl) [place] 846001-05-24 21:13:00 Test Item Value Reference Range Interpretation Comments Sodium Lvl (test code = Sodium Lvl) 140 135-145 [place] 846001-05-24 21:13:00 Test Item Value Reference Range Interpretation Comments Potassium Lvl (test code = Potassium 3.5 3.5-5.1 Lvl) [facility]2021-05-24 21:13:00 Test Item Value Reference Range Interpretation Comments Chloride Lvl (test code = Chloride Lvl) 109 95-109 [facility]2021-05-24 21:13:00 Test Item Value Reference Range Interpretation Comments CO2 (test code = CO2) 27 24-32 [place] 846001-05-24 21:13:00 Test Item Value Reference Range Interpretation Comments Calcium Lvl (test code = Calcium Lvl) 9.0 8.5-10.5 [place] 846001-05-24 21:13:00 Test Item Value Reference Range Interpretation Comments AGAP (test code = AGAP) 7.5 10.0-20.0 [place] 846001-05-24 21:13:00 Test Item Value Reference Range Interpretation Comments eGFR (test code = eGFR) 126 [facility]2021-05-24 21:13:00 Test Item Value Reference Range Interpretation Comments Lactic Acid Lvl (test code = Lactic 0.6 0.5-2.2 Acid Lvl) [facility]BalppgeNWMLVEKPSADQO5702-04-59 21:13:00 Test Item Value Reference Range Interpretation Comments hCG Tot (test code = hCG Tot) no gt [facility] HeightsPjtlvoxXDVCXYBKQU7194-49-31 21:13:00 Test Item Value Reference Range Interpretation Comments WBC X 10x3 (test code = WBC X 10x3) 7.9 3.7-10.4 [place] 308111-05-24 21:13:00 Test Item Value Reference Range Interpretation Comments RBC X 10x6 (test code = RBC X 10x6) 4.80 4.20-5.40 [place] 308111-05-24 21:13:00 Test Item Value Reference Range Interpretation Comments Hgb (test code = Hgb) 12.4 12.0-16.0 [place] [address]-05-24 21:13:00 Test Item Value Reference Range Interpretation Comments Hct (test code = Hct) 37.9 36.0-48.0 [facility] HeightsJfilkkjJJGBQYUQXI0539-33-59 21:13:00 Test Item Value Reference Range Interpretation Comments MCV (test code = MCV) 78.9 80.0-98.0 [facility] HeightsBsmuorbYDEMNEJCYA0842-54-47 21:13:00 Test Item Value Reference Range Interpretation Comments MCH (test code = MCH) 25.7 pg 27.0-31.0 [facility] HeightsGtxgqiyHMNAHULGPD3674-74-91 21:13:00 Test Item Value Reference Range Interpretation Comments MCHC (test code = MCHC) 32.6 32.0-36.0 [facility] HeightsXcbhtbuVURWUGXKOK1471-79-18 21:13:00 Test Item Value Reference Range Interpretation Comments RDW (test code = RDW) 15.5 11.5-14.5 [place] 308111-05-24 21:13:00 Test Item Value Reference Range Interpretation Comments Platelet (test code = Platelet) 243 133-450 [facility] HeightsAgjzeviTFLWQINHQM1259-22-05 21:13:00 Test Item Value Reference Range Interpretation Comments MPV (test code = MPV) 9.4 7.4-10.4 [place] 308111-05-24 21:13:00 Test Item Value Reference Range Interpretation Comments Segs (test code = Segs) 56.1 45.0-75.0 [facility] HeightsClxqdduWYVMENANQE2385-15-14 21:13:00 Test Item Value Reference Range Interpretation Comments Lymphocytes (test code = Lymphocytes) 32.2 20.0-40.0 [place] 308111-05-24 21:13:00 Test Item Value Reference Range Interpretation Comments Monocytes (test code = Monocytes) 9.1 2.0-12.0 [place] 308111-05-24 21:13:00 Test Item Value Reference Range Interpretation Comments Eosinophils (test code = 2.2 See_Comment [A utomated message] The Eosinophils) system which ge nerated this result tra nsmitted reference range : <=4.0. The reference r kat was not used to int erpret this result as normal/abnormal . [facility] HeightsCgvficzSCLMVJNCAA3525-16-64 21:13:00 Test Item Value Reference Range Interpretation Comments Basophils (test code = 0.4 See_Comment [Aut omated message] The Basophils) system which ge nerated this result tra nsmitted reference range : <=1.0. The reference r kat was not used to int erpret this result as normal/abnormal . [facility] HeightsSfuscloCYXARINJSN0151-88-68 21:13:00 Test Item Value Reference Range Interpretation Comments Neutrophils # (test code = Neutrophils 4.4 1.5-8.1 #) [facility] HeightsOgvjagyIRKQRXLJLC2428-07-38 21:13:00 Test Item Value Reference Range Interpretation Comments Lymphocytes # (test code = Lymphocytes 2.5 1.0-5.5 #) [facility] HeightsKtidslnASFDQRBYUM5736-04-34 21:13:00 Test Item Value Reference Range Interpretation Comments Monocytes # (test code 0.7 See_Comment [Aut omated message] The = Monocytes #) system which generated this result tra nsmitted reference range : <=0.8. The reference r kat was not used to int erpret this result as normal/abnormal . [facility] HeightsZtfikavEHDMNFINKR1145-00-75 21:13:00 Test Item Value Reference Range Interpretation Comments Eosinophils # (test code 0.2 See_Comment [A utomated message] The = Eosinophils #) system whic h generated this result tra nsmitted reference range : <=0.5. The reference r kat was not used to int erpret this result as normal/abnormal . [facility] HeightsVgmkbguCPOTMVKHYK5651-14-92 21:13:00 Test Item Value Reference Range Interpretation Comments Microcyte (test code = 1+ *ABN*(01/20/21 Microcyte) 4:13 PM) [facility]2021-05-24 21:13:00 Test Item Value Reference Range Interpretation Comments Glucose Lvl (test code = Glucose Lvl) 89 70-99 [place] 846001-05-24 21:13:00 Test Item Value Reference Range Interpretation Comments BUN (test code = BUN) 8 7-22 [facility]2021-05-24 21:13:00 Test Item Value Reference Range Interpretation Comments Creatinine Lvl (test code = Creatinine 0.55 0.50-1.40 Lvl) [facility]2021-05-24 21:13:00 Test Item Value Reference Range Interpretation Comments Sodium Lvl (test code = Sodium Lvl) 140 135-145 [facility]2021-05-24 21:13:00 Test Item Value Reference Range Interpretation Comments Potassium Lvl (test code = Potassium 3.5 3.5-5.1 Lvl) [facility]2021-05-24 21:13:00 Test Item Value Reference Range Interpretation Comments Chloride Lvl (test code = Chloride Lvl) 109 95-109 [facility]2021-05-24 21:13:00 Test Item Value Reference Range Interpretation Comments CO2 (test code = CO2) 27 24-32 [facility]2021-05-24 21:13:00 Test Item Value Reference Range Interpretation Comments Calcium Lvl (test code = Calcium Lvl) 9.0 8.5-10.5 [facility]2021-05-24 21:13:00 Test Item Value Reference Range Interpretation Comments AGAP (test code = AGAP) 7.5 10.0-20.0 [facility]2021-05-24 21:13:00 Test Item Value Reference Range Interpretation Comments eGFR (test code = eGFR) 126 [facility]2021-05-24 21:13:00 Test Item Value Reference Range Interpretation Comments Lactic Acid Lvl (test code = Lactic 0.6 0.5-2.2 Acid Lvl) [facility]FU[facility]IBF1440-[facility] 21:13:00 Test Item Value Reference Range Interpretation Comments hCG Tot (test code = hCG Tot) no gt [facility] HeightsZkyryhoNHDWWBDPUJ2366-19-91 21:13:00 Test Item Value Reference Range Interpretation Comments WBC X 10x3 (test code = WBC X 10x3) 7.9 3.7-10.4 [facility] HeightsKcdgmaiXDYBITPSAC4773-12-59 21:13:00 Test Item Value Reference Range Interpretation Comments RBC X 10x6 (test code = RBC X 10x6) 4.80 4.20-5.40 [facility] HeightsNtlzhobXASSUIGJDP5927-92-81 21:13:00 Test Item Value Reference Range Interpretation Comments Hgb (test code = Hgb) 12.4 12.0-16.0 [facility] HeightsYbarpcwUJMYTRRINS5803-05-14 21:13:00 Test Item Value Reference Range Interpretation Comments Hct (test code = Hct) 37.9 36.0-48.0 [facility] HeightsCmdtdphDQZLCENDMQ5738-58-43 21:13:00 Test Item Value Reference Range Interpretation Comments MCV (test code = MCV) 78.9 80.0-98.0 [facility] HeightsIlqgkoqXZFZAAVPSM8084-24-30 21:13:00 Test Item Value Reference Range Interpretation Comments MCH (test code = MCH) 25.7 pg 27.0-31.0 [facility] HeightsGzigzeeRDKHMXRAYY3946-10-42 21:13:00 Test Item Value Reference Range Interpretation Comments MCHC (test code = MCHC) 32.6 32.0-36.0 [facility] HeightsLzqywqaVPMJEWFZTX2871-33-65 21:13:00 Test Item Value Reference Range Interpretation Comments RDW (test code = RDW) 15.5 11.5-14.5 [facility] HeightsCspmjrgSKDLWZUMRH6977-70-98 21:13:00 Test Item Value Reference Range Interpretation Comments Platelet (test code = Platelet) 243 133-450 [facility] HeightsIfuqnekAHRDJISVDL2405-27-08 21:13:00 Test Item Value Reference Range Interpretation Comments MPV (test code = MPV) 9.4 7.4-10.4 [facility] HeightsGbxaytfXGUJVREUQK7591-64-18 21:13:00 Test Item Value Reference Range Interpretation Comments Segs (test code = Segs) 56.1 45.0-75.0 [facility] HeightsGzjtyikRYKTUPLNAV1017-07-18 21:13:00 Test Item Value Reference Range Interpretation Comments Lymphocytes (test code = Lymphocytes) 32.2 20.0-40.0 [place] [address]-05-24 21:13:00 Test Item Value Reference Range Interpretation Comments Monocytes (test code = Monocytes) 9.1 2.0-12.[address]05-24 21:13:00 Test Item Value Reference Range Interpretation Comments Eosinophils (test code = 2.2 See_Comment [A utomated message] The Eosinophils) system which nerated this result tra nsmitted reference range : <=4.0. The reference r kat was not used to int erpret this result as normal/abnormal . [address]05-24 21:13:00 Test Item Value Reference Range Interpretation Comments Basophils (test code = 0.4 See_Comment [Aut omated message] The Basophils) system which ge nerated this result tra nsmitted reference range : <=1.0. The reference r kat was not used to int erpret this result as normal/abnormal . [place] [address]-05-24 21:13:00 Test Item Value Reference Range Interpretation Comments Glucose Lvl (test code = Glucose Lvl) 89 70-99 [place] [address]-05-24 21:13:00 Test Item Value Reference Range Interpretation Comments BUN (test code = BUN) 8 7-22 [place] [address]-05-24 21:13:00 Test Item Value Reference Range Interpretation Comments Creatinine Lvl (test code = Creatinine 0.55 0.50-1.40 Lvl) [address]05-24 21:13:00 Test Item Value Reference Range Interpretation Comments Sodium Lvl (test code = Sodium Lvl) 140 135-145 [place] [address]-05-24 21:13:00 Test Item Value Reference Range Interpretation Comments Potassium Lvl (test code = Potassium 3.5 3.5-5.1 Lvl) [address]05-24 21:13:00 Test Item Value Reference Range Interpretation Comments Chloride Lvl (test code = Chloride Lvl) 109 95-109 [place] [address]-05-24 21:13:00 Test Item Value Reference Range Interpretation Comments CO2 (test code = CO2) 27 24-32 [place] [address]-05-24 21:13:00 Test Item Value Reference Range Interpretation Comments Calcium Lvl (test code = Calcium Lvl) 9.0 8.5-10.5 [facility]2021-05-24 21:13:00 Test Item Value Reference Range Interpretation Comments AGAP (test code = AGAP) 7.5 10.0-20.0 [facility]2021-05-24 21:13:00 Test Item Value Reference Range Interpretation Comments eGFR (test code = eGFR) 126 [facility] HeightsVitdqccOADHARVZRZ3610-63-54 21:13:00 Test Item Value Reference Range Interpretation Comments Neutrophils # (test code = Neutrophils 4.4 1.5-8.1 #) [facility]2021-05-24 21:13:00 Test Item Value Reference Range Interpretation Comments Lactic Acid Lvl (test code = Lactic 0.6 0.5-2.2 Acid Lvl) [place] 88827021-05-24 21:13:00 Test Item Value Reference Range Interpretation Comments hCG Tot (test code = hCG Tot) no gt [facility] HeightsB[id number] 21:13:00 Test Item Value Reference Range Interpretation Comments WBC X 10x3 (test code = WBC X 10x3) 7.9 3.7-10.4 [place] 308111-05-24 21:13:00 Test Item Value Reference Range Interpretation Comments RBC X 10x6 (test code = RBC X 10x6) 4.80 4.20-5.40 [place] [address]-05-24 21:13:00 Test Item Value Reference Range Interpretation Comments Hgb (test code = Hgb) 12.4 12.0-16.0 [place] [address]-05-24 21:13:00 Test Item Value Reference Range Interpretation Comments Hct (test code = Hct) 37.9 36.0-48.0 [place] 308111-05-24 21:13:00 Test Item Value Reference Range Interpretation Comments MCV (test code = MCV) 78.9 80.0-98.0 [place] [address]-05-24 21:13:00 Test Item Value Reference Range Interpretation Comments MCH (test code = MCH) 25.7 pg 27.0-31.0 [place] [address]-05-24 21:13:00 Test Item Value Reference Range Interpretation Comments MCHC (test code = MCHC) 32.6 32.0-36.0 [facility] HeightsJjfjcxmZKGRBYWUGX1508-18-89 21:13:00 Test Item Value Reference Range Interpretation Comments RDW (test code = RDW) 15.5 11.5-14.5 [facility] HeightsFpmuxwdLOMMOIBYRX7071-21-12 21:13:00 Test Item Value Reference Range Interpretation Comments Lymphocytes # (test code = Lymphocytes 2.5 1.0-5.5 #) [facility] HeightsXcsekhuIAMMFBMEJU8273-02-83 21:13:00 Test Item Value Reference Range Interpretation Comments Platelet (test code = Platelet) 243 133-450 [place] 308111-05-24 21:13:00 Test Item Value Reference Range Interpretation Comments MPV (test code = MPV) 9.4 7.4-10.4 [place] 308111-05-24 21:13:00 Test Item Value Reference Range Interpretation Comments Segs (test code = Segs) 56.1 45.0-75.0 [place] 308111-05-24 21:13:00 Test Item Value Reference Range Interpretation Comments Lymphocytes (test code = Lymphocytes) 32.2 20.0-40.0 [place] 308111-05-24 21:13:00 Test Item Value Reference Range Interpretation Comments Monocytes (test code = Monocytes) 9.1 2.0-12.0 [facility] HeightsVzqvipyPQWLNAJDDG5944-83-33 21:13:00 Test Item Value Reference Range Interpretation Comments Eosinophils (test code = 2.2 See_Comment [A utomated message] The Eosinophils) system which ge nerated this result tra nsmitted reference range : <=4.0. The reference r kat was not used to int erpret this result as normal/abnormal . [place] 308111-05-24 21:13:00 Test Item Value Reference Range Interpretation Comments Basophils (test code = 0.4 See_Comment [Aut omated message] The Basophils) system which ge nerated this result tra nsmitted reference range : <=1.0. The reference r kat was not used to int erpret this result as normal/abnormal . [place] 308111-05-24 21:13:00 Test Item Value Reference Range Interpretation Comments Neutrophils # (test code = Neutrophils 4.4 1.5-8.1 #) [place] 308111-05-24 21:13:00 Test Item Value Reference Range Interpretation Comments Lymphocytes # (test code = Lymphocytes 2.5 1.0-5.5 #) [place] 308111-05-24 21:13:00 Test Item Value Reference Range Interpretation Comments Monocytes # (test code 0.7 See_Comment [Aut omated message] The = Monocytes #) system which generated this result tra nsmitted reference range : <=0.8. The reference r kat was not used to int erpret this result as normal/abnormal . [place] 308111-05-24 21:13:00 Test Item Value Reference Range Interpretation Comments Monocytes # (test code 0.7 See_Comment [Aut omated message] The = Monocytes #) system which generated this result tra nsmitted reference range : <=0.8. The reference r kat was not used to int erpret this result as normal/abnormal . [facility] HeightsNjsygjfWJSGQTKOFI0481-83-28 21:13:00 Test Item Value Reference Range Interpretation Comments Eosinophils # (test code 0.2 See_Comment [A utomated message] The = Eosinophils #) system [facility] [employer] generated this result tra nsmitted reference range : <=0.5. The reference r kat was not used to int erpret this result as normal/abnormal . [facility] HeightsQusyzijZBHICKUTJR5519-48-83 21:13:00 Test Item Value Reference Range Interpretation Comments Microcyte (test code = 1+ *ABN*(01/20/21 Microcyte) 4:13 PM) [place] 308111-05-24 21:13:00 Test Item Value Reference Range Interpretation Comments Eosinophils # (test code 0.2 See_Comment [A utomated message] The = Eosinophils #) system [employer] generated this result tra nsmitted reference range : <=0.5. The reference r kat was not used to int erpret this result as normal/abnormal . [place] 308111-05-24 21:13:00 Test Item Value Reference Range Interpretation Comments Microcyte (test code = 1+ *ABN*(01/20/21 Microcyte) 4:13 PM) [facility]2021-05-24 21:13:00 Test Item Value Reference Range Interpretation Comments Glucose Lvl (test code = Glucose Lvl) 89 70-99 [place] 846001-05-24 21:13:00 Test Item Value Reference Range Interpretation Comments BUN (test code = BUN) 8 7-22 [place] 846001-05-24 21:13:00 Test Item Value Reference Range Interpretation Comments Creatinine Lvl (test code = Creatinine 0.55 0.50-1.40 Lvl) [place] 846001-05-24 21:13:00 Test Item Value Reference Range Interpretation Comments Sodium Lvl (test code = Sodium Lvl) 140 135-145 [place] 846001-05-24 21:13:00 Test Item Value Reference Range Interpretation Comments Potassium Lvl (test code = Potassium 3.5 3.5-5.1 Lvl) [place] 846001-05-24 21:13:00 Test Item Value Reference Range Interpretation Comments Chloride Lvl (test code = Chloride Lvl) 109 95-109 [facility]2021-05-24 21:13:00 Test Item Value Reference Range Interpretation Comments CO2 (test code = CO2) 27 24-32 [place] 846001-05-24 21:13:00 Test Item Value Reference Range Interpretation Comments Calcium Lvl (test code = Calcium Lvl) 9.0 8.5-10.5 [facility]2021-05-24 21:13:00 Test Item Value Reference Range Interpretation Comments AGAP (test code = AGAP) 7.5 10.0-20.0 [facility]2021-05-24 21:13:00 Test Item Value Reference Range Interpretation Comments eGFR (test code = eGFR) 126 [place] 846001-05-24 21:13:00 Test Item Value Reference Range Interpretation Comments Lactic Acid Lvl (test code = Lactic 0.6 0.5-2.2 Acid Lvl) [facility] 21:13:00 Test Item Value Reference Range Interpretation Comments hCG Tot (test code = hCG Tot) no gt [facility] HeightsJfhqaknNGNEBMOPGO1240-21-55 21:13:00 Test Item Value Reference Range Interpretation Comments WBC X 10x3 (test code = WBC X 10x3) 7.9 3.7-10.4 [facility] HeightsDvmevxuTDJOFDABGJ2005-22-76 21:13:00 Test Item Value Reference Range Interpretation Comments RBC X 10x6 (test code = RBC X 10x6) 4.80 4.20-5.40 [facility] HeightsZmehspiWXCVQPMMZG7046-48-35 21:13:00 Test Item Value Reference Range Interpretation Comments Hgb (test code = Hgb) 12.4 12.0-16.0 [place] [address]-05-24 21:13:00 Test Item Value Reference Range Interpretation Comments Hct (test code = Hct) 37.9 36.0-48.0 [place] 308111-05-24 21:13:00 Test Item Value Reference Range Interpretation Comments MCV (test code = MCV) 78.9 80.0-98.0 [place] 308111-05-24 21:13:00 Test Item Value Reference Range Interpretation Comments MCH (test code = MCH) 25.7 pg 27.0-31.0 [place] 308111-05-24 21:13:00 Test Item Value Reference Range Interpretation Comments MCHC (test code = MCHC) 32.6 32.0-36.0 [facility] HeightsHnqdcsuICHGVKBTNK0048-24-90 21:13:00 Test Item Value Reference Range Interpretation Comments RDW (test code = RDW) 15.5 11.5-14.5 [facility] HeightsEctjgscKPGPCISVQK4609-71-77 21:13:00 Test Item Value Reference Range Interpretation Comments Platelet (test code = Platelet) 243 133-450 [facility] HeightsSjbudfhPHLNKEOSEQ9586-80-65 21:13:00 Test Item Value Reference Range Interpretation Comments MPV (test code = MPV) 9.4 7.4-10.4 [place] 308111-05-24 21:13:00 Test Item Value Reference Range Interpretation Comments Segs (test code = Segs) 56.1 45.0-75.0 [place] 308111-05-24 21:13:00 Test Item Value Reference Range Interpretation Comments Lymphocytes (test code = Lymphocytes) 32.2 20.0-40.0 [place] 308111-05-24 21:13:00 Test Item Value Reference Range Interpretation Comments Monocytes (test code = Monocytes) 9.1 2.0-12.0 [place] 308111-05-24 21:13:00 Test Item Value Reference Range Interpretation Comments Eosinophils (test code = 2.2 See_Comment [A utomated message] The Eosinophils) system which ge nerated this result tra nsmitted reference range : <=4.0. The reference r kat was not used to int erpret this result as normal/abnormal . [facility] HeightsTbhmomsYFMOLWHPUU2212-51-81 21:13:00 Test Item Value Reference Range Interpretation Comments Basophils (test code = 0.4 See_Comment [Aut omated message] The Basophils) system which ge nerated this result tra nsmitted reference range : <=1.0. The reference r kat was not used to int erpret this result as normal/abnormal . [facility] HeightsUofadtcPHPEFRLUTP6077-82-70 21:13:00 Test Item Value Reference Range Interpretation Comments Neutrophils # (test code = Neutrophils 4.4 1.5-8.1 #) [facility] HeightsCunwmkmGKTVNUYXAV5693-30-93 21:13:00 Test Item Value Reference Range Interpretation Comments Lymphocytes # (test code = Lymphocytes 2.5 1.0-5.5 #) [facility] HeightsSthvzknDEEOFPYAVD2309-06-15 21:13:00 Test Item Value Reference Range Interpretation Comments Monocytes # (test code 0.7 See_Comment [Aut omated message] The = Monocytes #) system which generated this result tra nsmitted reference range : <=0.8. The reference r kat was not used to int erpret this result as normal/abnormal . [facility] HeightsPrxjihdTCCCOEDHNK8348-23-80 21:13:00 Test Item Value Reference Range Interpretation Comments Eosinophils # (test code 0.2 See_Comment [A utomated message] The = Eosinophils #) system whic h generated this result tra nsmitted reference range : <=0.5. The reference r kat was not used to int erpret this result as normal/abnormal . [facility] HeightsSmxdcblUUNFMQUGJX3565-78-93 21:13:00 Test Item Value Reference Range Interpretation Comments Microcyte (test code = 1+ *ABN*(01/20/21 Microcyte) 4:13 PM) [facility] 21:13:[facility] Test Item Value Reference Range Interpretation Comments Glucose Lvl (test code = Glucose Lvl) 89 70-99 [facility] ILKMV0439-53-56 21:13:00 Test Item Value Reference Range Interpretation Comments BUN (test code = BUN) 8 7-22 [facility]2021-05-24 21:13:00 Test Item Value Reference Range Interpretation Comments Creatinine Lvl (test code = Creatinine 0.55 0.50-1.40 Lvl) [facility]2021-05-24 21:13:00 Test Item Value Reference Range Interpretation Comments Sodium Lvl (test code = Sodium Lvl) 140 135-145 [place] 846001-05-24 21:13:00 Test Item Value Reference Range Interpretation Comments Potassium Lvl (test code = Potassium 3.5 3.5-5.1 Lvl) [facility]2021-05-24 21:13:00 Test Item Value Reference Range Interpretation Comments Chloride Lvl (test code = Chloride Lvl) 109 95-109 [facility]2021-05-24 21:13:00 Test Item Value Reference Range Interpretation Comments CO2 (test code = CO2) 27 24-32 [place] 846001-05-24 21:13:00 Test Item Value Reference Range Interpretation Comments Calcium Lvl (test code = Calcium Lvl) 9.0 8.5-10.5 [facility]2021-05-24 21:13:00 Test Item Value Reference Range Interpretation Comments AGAP (test code = AGAP) 7.5 10.0-20.0 [facility]2021-05-24 21:13:00 Test Item Value Reference Range Interpretation Comments eGFR (test code = eGFR) 126 [facility]2021-05-24 21:13:00 Test Item Value Reference Range Interpretation Comments Lactic Acid Lvl (test code = Lactic 0.6 0.5-2.2 Acid Lvl) [facility]WkllsiaAWDDQPIURIQGN5663-90-56 21:13:00 Test Item Value Reference Range Interpretation Comments hCG Tot (test code = hCG Tot) no gt [facility] HeightsMuutilpZAHKUDIDNU8889-72-26 21:13:00 Test Item Value Reference Range Interpretation Comments WBC X 10x3 (test code = WBC X 10x3) 7.9 3.7-10.4 [facility] HeightsEzeilglLVXFIVELXV1992-27-64 21:13:00 Test Item Value Reference Range Interpretation Comments RBC X 10x6 (test code = RBC X 10x6) 4.80 4.20-5.40 [place] 308111-05-24 21:13:00 Test Item Value Reference Range Interpretation Comments Hgb (test code = Hgb) 12.4 12.0-16.0 [place] [address]-05-24 21:13:00 Test Item Value Reference Range Interpretation Comments Hct (test code = Hct) 37.9 36.0-48.0 [place] [address]-05-24 21:13:00 Test Item Value Reference Range Interpretation Comments MCV (test code = MCV) 78.9 80.0-98.0 [place] [address]-05-24 21:13:00 Test Item Value Reference Range Interpretation Comments MCH (test code = MCH) 25.7 pg 27.0-31.0 [place] 308111-05-24 21:13:00 Test Item Value Reference Range Interpretation Comments MCHC (test code = MCHC) 32.6 32.0-36.0 [place] [address]-05-24 21:13:00 Test Item Value Reference Range Interpretation Comments RDW (test code = RDW) 15.5 11.5-14.5 [place] [address]-05-24 21:13:00 Test Item Value Reference Range Interpretation Comments Platelet (test code = Platelet) 243 133-450 [place] [address]-05-24 21:13:00 Test Item Value Reference Range Interpretation Comments MPV (test code = MPV) 9.4 7.4-10.4 [place] [address]-05-24 21:13:00 Test Item Value Reference Range Interpretation Comments Segs (test code = Segs) 56.1 45.0-75.0 [place] 308111-05-24 21:13:00 Test Item Value Reference Range Interpretation Comments Lymphocytes (test code = Lymphocytes) 32.2 20.0-40.0 [place] [address]-05-24 21:13:00 Test Item Value Reference Range Interpretation Comments Monocytes (test code = Monocytes) 9.1 2.0-12.0 [place] [address]-05-24 21:13:00 Test Item Value Reference Range Interpretation Comments Eosinophils (test code = 2.2 See_Comment [A utomated message] The Eosinophils) system which ge nerated this result tra nsmitted reference range : <=4.0. The reference r kat was not used to int erpret this result as normal/abnormal . [place] [address]-05-24 21:13:00 Test Item Value Reference Range Interpretation Comments Basophils (test code = 0.4 See_Comment [Aut omated message] The Basophils) system which ge nerated this result tra nsmitted reference range : <=1.0. The reference r kat was not used to int erpret this result as normal/abnormal . [place] 308111-05-24 21:13:00 Test Item Value Reference Range Interpretation Comments Neutrophils # (test code = Neutrophils 4.4 1.5-8.1 #) [place] 308111-05-24 21:13:00 Test Item Value Reference Range Interpretation Comments Lymphocytes # (test code = Lymphocytes 2.5 1.0-5.5 #) [place] [address]-05-24 21:13:00 Test Item Value Reference Range Interpretation Comments Monocytes # (test code 0.7 See_Comment [Aut omated message] The = Monocytes #) system which generated this result tra nsmitted reference range : <=0.8. The reference r kat was not used to int erpret this result as normal/abnormal . [place] [address]-05-24 21:13:00 Test Item Value Reference Range Interpretation Comments Eosinophils # (test code 0.2 See_Comment [A utomated message] The = Eosinophils #) system whic h generated this result tra nsmitted reference range : <=0.5. The reference r kat was not used to int erpret this result as normal/abnormal . [place] 308111-05-24 21:13:00 Test Item Value Reference Range Interpretation Comments Microcyte (test code = 1+ *ABN*(01/20/21 Microcyte) 4:13 PM) [place] 846001-05-24 21:13:00 Test Item Value Reference Range Interpretation Comments Glucose Lvl (test code = Glucose Lvl) 89 70-99 [place] 846001-05-24 21:13:00 Test Item Value Reference Range Interpretation Comments BUN (test code = BUN) 8 7-22 [place] 846001-05-24 21:13:00 Test Item Value Reference Range Interpretation Comments Creatinine Lvl (test code = Creatinine 0.55 0.50-1.40 Lvl) [facility]2021-05-24 21:13:00 Test Item Value Reference Range Interpretation Comments Sodium Lvl (test code = Sodium Lvl) 140 135-145 [place] 846001-05-24 21:13:00 Test Item Value Reference Range Interpretation Comments Potassium Lvl (test code = Potassium 3.5 3.5-5.1 Lvl) [place] 846001-05-24 21:13:00 Test Item Value Reference Range Interpretation Comments Chloride Lvl (test code = Chloride Lvl) 109 95-109 [place] 846001-05-24 21:13:00 Test Item Value Reference Range Interpretation Comments CO2 (test code = CO2) 27 24-32 [place] 846001-05-24 21:13:00 Test Item Value Reference Range Interpretation Comments Calcium Lvl (test code = Calcium Lvl) 9.0 8.5-10.5 [place] 846001-05-24 21:13:00 Test Item Value Reference Range Interpretation Comments AGAP (test code = AGAP) 7.5 10.0-20.0 [facility]2021-05-24 21:13:00 Test Item Value Reference Range Interpretation Comments eGFR (test code = eGFR) 126 [place] 846001-05-24 21:13:00 Test Item Value Reference Range Interpretation Comments Lactic Acid Lvl (test code = Lactic 0.6 0.5-2.2 Acid Lvl) [place] 806511-05-24 21:13:00 Test Item Value Reference Range Interpretation Comments hCG Tot (test code = hCG Tot) no gt [facility] HeightsDybbjzuFTAOLEJLDR3455-86-49 21:13:00 Test Item Value Reference Range Interpretation Comments WBC X 10x3 (test code = WBC X 10x3) 7.9 3.7-10.4 [place] 308111-05-24 21:13:00 Test Item Value Reference Range Interpretation Comments RBC X 10x6 (test code = RBC X 10x6) 4.80 4.20-5.40 [place] 308111-05-24 21:13:00 Test Item Value Reference Range Interpretation Comments Hgb (test code = Hgb) 12.4 12.0-16.0 [place] 308111-05-24 21:13:00 Test Item Value Reference Range Interpretation Comments Hct (test code = Hct) 37.9 36.0-48.0 [place] [address]-05-24 21:13:00 Test Item Value Reference Range Interpretation Comments MCV (test code = MCV) 78.9 80.0-98.0 [place] [address]-05-24 21:13:00 Test Item Value Reference Range Interpretation Comments MCH (test code = MCH) 25.7 pg 27.0-31.0 [place] [address]-05-24 21:13:00 Test Item Value Reference Range Interpretation Comments MCHC (test code = MCHC) 32.6 32.0-36.0 [place] [address]-05-24 21:13:00 Test Item Value Reference Range Interpretation Comments RDW (test code = RDW) 15.5 11.5-14.5 [place] [address]-05-24 21:13:00 Test Item Value Reference Range Interpretation Comments Platelet (test code = Platelet) 243 133-450 [place] 308111-05-24 21:13:00 Test Item Value Reference Range Interpretation Comments MPV (test code = MPV) 9.4 7.4-10.4 [place] [address]-05-24 21:13:00 Test Item Value Reference Range Interpretation Comments Segs (test code = Segs) 56.1 45.0-75.0 [place] [address]-05-24 21:13:00 Test Item Value Reference Range Interpretation Comments Lymphocytes (test code = Lymphocytes) 32.2 20.0-40.0 [place] [address]-05-24 21:13:00 Test Item Value Reference Range Interpretation Comments Monocytes (test code = Monocytes) 9.1 2.0-12.0 [place] [address]-05-24 21:13:00 Test Item Value Reference Range Interpretation Comments Eosinophils (test code = 2.2 See_Comment [A utomated message] The Eosinophils) system which ge nerated this result tra nsmitted reference range : <=4.0. The reference r kat was not used to int erpret this result as normal/abnormal . [place] 308111-05-24 21:13:00 Test Item Value Reference Range Interpretation Comments Basophils (test code = 0.4 See_Comment [Aut omated message] The Basophils) system which ge nerated this result tra nsmitted reference range : <=1.0. The reference r kat was not used to int erpret this result as normal/abnormal . [place] 308111-05-24 21:13:00 Test Item Value Reference Range Interpretation Comments Neutrophils # (test code = Neutrophils 4.4 1.5-8.1 #) [place] 308111-05-24 21:13:00 Test Item Value Reference Range Interpretation Comments Lymphocytes # (test code = Lymphocytes 2.5 1.0-5.5 #) [place] 308111-05-24 21:13:00 Test Item Value Reference Range Interpretation Comments Monocytes # (test code 0.7 See_Comment [Aut omated message] The = Monocytes #) system which generated this result tra nsmitted reference range : <=0.8. The reference r kat was not used to int erpret this result as normal/abnormal . [place] 308111-05-24 21:13:00 Test Item Value Reference Range Interpretation Comments Eosinophils # (test code 0.2 See_Comment [A utomated message] The = Eosinophils #) system whic h generated this result tra nsmitted reference range : <=0.5. The reference r kat was not used to int erpret this result as normal/abnormal . [place] 308111-05-24 21:13:00 Test Item Value Reference Range Interpretation Comments Microcyte (test code = 1+ *ABN*(01/20/21 Microcyte) 4:13 PM) [place] 846001-05-24 21:13:00 Test Item Value Reference Range Interpretation Comments Glucose Lvl (test code = Glucose Lvl) 89 70-99 [place] 846001-05-24 21:13:00 Test Item Value Reference Range Interpretation Comments BUN (test code = BUN) 8 7-22 [place] 846001-05-24 21:13:00 Test Item Value Reference Range Interpretation Comments Creatinine Lvl (test code = Creatinine 0.55 0.50-1.40 Lvl) [place] 846001-05-24 21:13:00 Test Item Value Reference Range Interpretation Comments Sodium Lvl (test code = Sodium Lvl) 140 135-145 [place] 846001-05-24 21:13:00 Test Item Value Reference Range Interpretation Comments Potassium Lvl (test code = Potassium 3.5 3.5-5.1 Lvl) [place] 846001-05-24 21:13:00 Test Item Value Reference Range Interpretation Comments Chloride Lvl (test code = Chloride Lvl) 109 95-109 [place] 846001-05-24 21:13:00 Test Item Value Reference Range Interpretation Comments CO2 (test code = CO2) 27 24-32 [place] 846001-05-24 21:13:00 Test Item Value Reference Range Interpretation Comments Calcium Lvl (test code = Calcium Lvl) 9.0 8.5-10.5 [place] 846001-05-24 21:13:00 Test Item Value Reference Range Interpretation Comments AGAP (test code = AGAP) 7.5 10.0-20.0 [place] 846001-05-24 21:13:00 Test Item Value Reference Range Interpretation Comments eGFR (test code = eGFR) 126 [place] 846001-05-24 21:13:00 Test Item Value Reference Range Interpretation Comments Lactic Acid Lvl (test code = Lactic 0.6 0.5-2.2 Acid Lvl) [place] 88827021-05-24 21:13:00 Test Item Value Reference Range Interpretation Comments hCG Tot (test code = hCG Tot) no gt [place] 308111-05-24 21:13:00 Test Item Value Reference Range Interpretation Comments WBC X 10x3 (test code = WBC X 10x3) 7.9 3.7-10.4 [place] 308111-05-24 21:13:00 Test Item Value Reference Range Interpretation Comments RBC X 10x6 (test code = RBC X 10x6) 4.80 4.20-5.40 [place] [address]-05-24 21:13:00 Test Item Value Reference Range Interpretation Comments Hgb (test code = Hgb) 12.4 12.0-16.0 [place] 308111-05-24 21:13:00 Test Item Value Reference Range Interpretation Comments Hct (test code = Hct) 37.9 36.0-48.0 [place] 308111-05-24 21:13:00 Test Item Value Reference Range Interpretation Comments MCV (test code = MCV) 78.9 80.0-98.0 [place] 308111-05-24 21:13:00 Test Item Value Reference Range Interpretation Comments MCH (test code = MCH) 25.7 pg 27.0-31.0 [place] 308111-05-24 21:13:00 Test Item Value Reference Range Interpretation Comments MCHC (test code = MCHC) 32.6 32.0-36.0 [place] 308111-05-24 21:13:00 Test Item Value Reference Range Interpretation Comments RDW (test code = RDW) 15.5 11.5-14.5 [place] [address]-05-24 21:13:00 Test Item Value Reference Range Interpretation Comments Platelet (test code = Platelet) 243 133-450 [place] 308111-05-24 21:13:00 Test Item Value Reference Range Interpretation Comments MPV (test code = MPV) 9.4 7.4-10.4 [place] 308111-05-24 21:13:00 Test Item Value Reference Range Interpretation Comments Segs (test code = Segs) 56.1 45.0-75.0 [place] [address]-05-24 21:13:00 Test Item Value Reference Range Interpretation Comments Lymphocytes (test code = Lymphocytes) 32.2 20.0-40.0 [place] [address]-05-24 21:13:00 Test Item Value Reference Range Interpretation Comments Monocytes (test code = Monocytes) 9.1 2.0-12.0 [place] [address]-05-24 21:13:00 Test Item Value Reference Range Interpretation Comments Eosinophils (test code = 2.2 See_Comment [A utomated message] The Eosinophils) system which ge nerated this result tra nsmitted reference range : <=4.0. The reference r kat was not used to int erpret this result as normal/abnormal . [place] 308111-05-24 21:13:00 Test Item Value Reference Range Interpretation Comments Basophils (test code = 0.4 See_Comment [Aut omated message] The Basophils) system which ge nerated this result tra nsmitted reference range : <=1.0. The reference r kat was not used to int erpret this result as normal/abnormal . [place] [address]-05-24 21:13:00 Test Item Value Reference Range Interpretation Comments Neutrophils # (test code = Neutrophils 4.4 1.5-8.1 #) [place] [address]-05-24 21:13:00 Test Item Value Reference Range Interpretation Comments Lymphocytes # (test code = Lymphocytes 2.5 1.0-5.5 #) [place] 308111-05-24 21:13:00 Test Item Value Reference Range Interpretation Comments Monocytes # (test code 0.7 See_Comment [Aut omated message] The = Monocytes #) system which generated this result tra nsmitted reference range : <=0.8. The reference r kat was not used to int erpret this result as normal/abnormal . [place] [address]-05-24 21:13:00 Test Item Value Reference Range Interpretation Comments Eosinophils # (test code 0.2 See_Comment [A utomated message] The = Eosinophils #) system whic h generated this result tra nsmitted reference range : <=0.5. The reference r kat was not used to int erpret this result as normal/abnormal . [place] [address]-05-24 21:13:00 Test Item Value Reference Range Interpretation Comments Microcyte (test code = 1+ *ABN*(01/20/21 Microcyte) 4:13 PM) [address]05-24 21:13:00 Test Item Value Reference Range Interpretation Comments Glucose Lvl (test code = Glucose Lvl) 89 70-99 [place] 846001-05-24 21:13:00 Test Item Value Reference Range Interpretation Comments BUN (test code = BUN) 8 7-22 [place] [address]-05-24 21:13:00 Test Item Value Reference Range Interpretation Comments Creatinine Lvl (test code = Creatinine 0.55 0.50-1.40 Lvl) [place] [address]-05-24 21:13:00 Test Item Value Reference Range Interpretation Comments Sodium Lvl (test code = Sodium Lvl) 140 135-145 [place] 846001-05-24 21:13:00 Test Item Value Reference Range Interpretation Comments Potassium Lvl (test code = Potassium 3.5 3.5-5.1 Lvl) [place] 846001-05-24 21:13:00 Test Item Value Reference Range Interpretation Comments Chloride Lvl (test code = Chloride Lvl) 109 95-109 [place] 846001-05-24 21:13:00 Test Item Value Reference Range Interpretation Comments CO2 (test code = CO2) 27 24-32 [place] 846001-05-24 21:13:00 Test Item Value Reference Range Interpretation Comments Calcium Lvl (test code = Calcium Lvl) 9.0 8.5-10.5 [place] 846001-05-24 21:13:00 Test Item Value Reference Range Interpretation Comments AGAP (test code = AGAP) 7.5 10.0-20.0 [place] 846001-05-24 21:13:00 Test Item Value Reference Range Interpretation Comments eGFR (test code = eGFR) 126 [place] 846001-05-24 21:13:00 Test Item Value Reference Range Interpretation Comments Lactic Acid Lvl (test code = Lactic 0.6 0.5-2.2 Acid Lvl) [facility]97 21:13:00 Test Item Value Reference Range Interpretation Comments hCG Tot (test code = hCG Tot) [facility]kk[facility]ULROZTNXFG0227[facility]41-51 21:13:00 Test Item Value Reference Range Interpretation Comments WBC X 10x3 (test code = WBC X 10x3) 7.9 3.7-10.4 [place] [address]-05-24 21:13:00 Test Item Value Reference Range Interpretation Comments RBC X 10x6 (test code = RBC X 10x6) 4.80 4.20-5.40 [place] [address]-05-24 21:13:00 Test Item Value Reference Range Interpretation Comments Hgb (test code = Hgb) 12.4 12.0-16.0 [place] [address]-05-24 21:13:00 Test Item Value Reference Range Interpretation Comments Hct (test code = Hct) 37.9 36.0-48.0 [place] 308111-05-24 21:13:00 Test Item Value Reference Range Interpretation Comments MCV (test code = MCV) 78.9 80.0-98.0 [facility]NifsjtdHNRZTQTSAR2610-38-66 21:13:00 Test Item Value Reference Range Interpretation Comments MCH (test code = MCH) 25.7 pg 27.0-31.0 [facility] HeightsKsbsjfvOBSXVIHJPV5834-44-57 21:13:00 Test Item Value Reference Range Interpretation Comments MCHC (test code = MCHC) 32.6 32.0-36.0 [place] 308111-05-24 21:13:00 Test Item Value Reference Range Interpretation Comments RDW (test code = RDW) 15.5 11.5-14.5 [place] 308111-05-24 21:13:00 Test Item Value Reference Range Interpretation Comments Platelet (test code = Platelet) 243 133-450 [facility] HeightsUpfbvirVKQDUZFETE5033-75-17 21:13:00 Test Item Value Reference Range Interpretation Comments MPV (test code = MPV) 9.4 7.4-10.4 [place] 308111-05-24 21:13:00 Test Item Value Reference Range Interpretation Comments Segs (test code = Segs) 56.1 45.0-75.0 [place] 308111-05-24 21:13:00 Test Item Value Reference Range Interpretation Comments Lymphocytes (test code = Lymphocytes) 32.2 20.0-40.0 [place] 308111-05-24 21:13:00 Test Item Value Reference Range Interpretation Comments Monocytes (test code = Monocytes) 9.1 2.0-12.0 [place] 308111-05-24 21:13:00 Test Item Value Reference Range Interpretation Comments Eosinophils (test code = 2.2 See_Comment [A utomated message] The Eosinophils) system which ge nerated this result tra nsmitted reference range : <=4.0. The reference r kat was not used to int erpret this result as normal/abnormal . [place] 308111-05-24 21:13:00 Test Item Value Reference Range Interpretation Comments Basophils (test code = 0.4 See_Comment [Aut omated message] The Basophils) system which ge nerated this result tra nsmitted reference range : <=1.0. The reference r kat was not used to int erpret this result as normal/abnormal . [place] 308111-05-24 21:13:00 Test Item Value Reference Range Interpretation Comments Neutrophils # (test code = Neutrophils 4.4 1.5-8.1 #) [place] [address]-05-24 21:13:00 Test Item Value Reference Range Interpretation Comments Lymphocytes # (test code = Lymphocytes 2.5 1.0-5.5 #) [place] 308111-05-24 21:13:00 Test Item Value Reference Range Interpretation Comments Monocytes # (test code 0.7 See_Comment [Aut omated message] The = Monocytes #) system which generated this result tra nsmitted reference range : <=0.8. The reference r kat was not used to int erpret this result as normal/abnormal . [place] [address]-05-24 21:13:00 Test Item Value Reference Range Interpretation Comments Eosinophils # (test code 0.2 See_Comment [A utomated message] The = Eosinophils #) system whic h generated this result tra nsmitted reference range : <=0.5. The reference r kat was not used to int erpret this result as normal/abnormal . [place] 308111-05-24 21:13:00 Test Item Value Reference Range Interpretation Comments Microcyte (test code = 1+ *ABN*(01/20/21 Microcyte) 4:13 PM) [place] 846001-05-24 21:13:00 Test Item Value Reference Range Interpretation Comments Glucose Lvl (test code = Glucose Lvl) 89 70-99 [place] 846001-05-24 21:13:00 Test Item Value Reference Range Interpretation Comments BUN (test code = BUN) 8 7-22 [place] 846001-05-24 21:13:00 Test Item Value Reference Range Interpretation Comments Creatinine Lvl (test code = Creatinine 0.55 0.50-1.40 Lvl) [place] 846001-05-24 21:13:00 Test Item Value Reference Range Interpretation Comments Sodium Lvl (test code = Sodium Lvl) 140 135-145 [place] 846001-05-24 21:13:00 Test Item Value Reference Range Interpretation Comments Potassium Lvl (test code = Potassium 3.5 3.5-5.1 Lvl) [place] 846001-05-24 21:13:00 Test Item Value Reference Range Interpretation Comments Chloride Lvl (test code = Chloride Lvl) 109 95-109 [place] 846001-05-24 21:13:00 Test Item Value Reference Range Interpretation Comments CO2 (test code = CO2) 27 24-32 [place] 846001-05-24 21:13:00 Test Item Value Reference Range Interpretation Comments Calcium Lvl (test code = Calcium Lvl) 9.0 8.5-10.5 [place] 846001-05-24 21:13:00 Test Item Value Reference Range Interpretation Comments AGAP (test code = AGAP) 7.5 10.0-20.0 [place] 846001-05-24 21:13:00 Test Item Value Reference Range Interpretation Comments eGFR (test code = eGFR) 126 [facility]2021-05-24 21:13:00 Test Item Value Reference Range Interpretation Comments Lactic Acid Lvl (test code = Lactic 0.6 0.5-2.2 Acid Lvl) [place] [address]27021-05-24 21:13:00 Test Item Value Reference Range Interpretation Comments hCG Tot (test code = hCG Tot) no gt [place] 308111-05-24 21:13:00 Test Item Value Reference Range Interpretation Comments WBC X 10x3 (test code = WBC X 10x3) 7.9 3.7-10.4 [place] [address]-05-24 21:13:00 Test Item Value Reference Range Interpretation Comments RBC X 10x6 (test code = RBC X 10x6) 4.80 4.20-5.40 [place] 308111-05-24 21:13:00 Test Item Value Reference Range Interpretation Comments Hgb (test code = Hgb) 12.4 12.0-16.0 [place] [address]-05-24 21:13:00 Test Item Value Reference Range Interpretation Comments Hct (test code = Hct) 37.9 36.0-48.0 [place] [address]-05-24 21:13:00 Test Item Value Reference Range Interpretation Comments MCV (test code = MCV) 78.9 80.0-98.0 [place] 308111-05-24 21:13:00 Test Item Value Reference Range Interpretation Comments MCH (test code = MCH) 25.7 pg 27.0-31.0 [facility] HeightsDmbiryvCSSSHBYTHE3036-46-21 21:13:00 Test Item Value Reference Range Interpretation Comments MCHC (test code = MCHC) 32.6 32.0-36.0 [place] 308111-05-24 21:13:00 Test Item Value Reference Range Interpretation Comments RDW (test code = RDW) 15.5 11.5-14.5 [place] 308111-05-24 21:13:00 Test Item Value Reference Range Interpretation Comments Platelet (test code = Platelet) 243 133-450 [facility] HeightsNddydlfHUSBCXYNIC1058-14-58 21:13:00 Test Item Value Reference Range Interpretation Comments MPV (test code = MPV) 9.4 7.4-10.4 [place] 308111-05-24 21:13:00 Test Item Value Reference Range Interpretation Comments Segs (test code = Segs) 56.1 45.0-75.0 [place] 308111-05-24 21:13:00 Test Item Value Reference Range Interpretation Comments Lymphocytes (test code = Lymphocytes) 32.2 20.0-40.0 [place] 308111-05-24 21:13:00 Test Item Value Reference Range Interpretation Comments Monocytes (test code = Monocytes) 9.1 2.0-12.0 [place] 308111-05-24 21:13:00 Test Item Value Reference Range Interpretation Comments Eosinophils (test code = 2.2 See_Comment [A utomated message] The Eosinophils) system which ge nerated this result tra nsmitted reference range : <=4.0. The reference r kat was not used to int erpret this result as normal/abnormal . [place] 308111-05-24 21:13:00 Test Item Value Reference Range Interpretation Comments Basophils (test code = 0.4 See_Comment [Aut omated message] The Basophils) system which ge nerated this result tra nsmitted reference range : <=1.0. The reference r kat was not used to int erpret this result as normal/abnormal . [place] 308111-05-24 21:13:00 Test Item Value Reference Range Interpretation Comments Neutrophils # (test code = Neutrophils 4.4 1.5-8.1 #) [place] 308111-05-24 21:13:00 Test Item Value Reference Range Interpretation Comments Lymphocytes # (test code = Lymphocytes 2.5 1.0-5.5 #) [place] 308111-05-24 21:13:00 Test Item Value Reference Range Interpretation Comments Monocytes # (test code 0.7 See_Comment [Aut omated message] The = Monocytes #) system which generated this result tra nsmitted reference range : <=0.8. The reference r kat was not used to int erpret this result as normal/abnormal . [place] 308111-05-24 21:13:00 Test Item Value Reference Range Interpretation Comments Eosinophils # (test code 0.2 See_Comment [A utomated message] The = Eosinophils #) system whic h generated this result tra nsmitted reference range : <=0.5. The reference r kat was not used to int erpret this result as normal/abnormal . [place] 308111-05-24 21:13:00 Test Item Value Reference Range Interpretation Comments Microcyte (test code = 1+ *ABN*(01/20/21 Microcyte) 4:13 PM) [place] [address]-05-24 21:13:00 Test Item Value Reference Range Interpretation Comments Glucose Lvl (test code = Glucose Lvl) 89 70-99 [place] 846001-05-24 21:13:00 Test Item Value Reference Range Interpretation Comments BUN (test code = BUN) 8 7-22 [place] 846001-05-24 21:13:00 Test Item Value Reference Range Interpretation Comments Creatinine Lvl (test code = Creatinine 0.55 0.50-1.40 Lvl) [place] 846001-05-24 21:13:00 Test Item Value Reference Range Interpretation Comments Sodium Lvl (test code = Sodium Lvl) 140 135-145 [place] 846001-05-24 21:13:00 Test Item Value Reference Range Interpretation Comments Potassium Lvl (test code = Potassium 3.5 3.5-5.1 Lvl) [place] 846001-05-24 21:13:00 Test Item Value Reference Range Interpretation Comments Chloride Lvl (test code = Chloride Lvl) 109 95-109 [place] 846001-05-24 21:13:00 Test Item Value Reference Range Interpretation Comments CO2 (test code = CO2) 27 24-32 [place] 846001-05-24 21:13:00 Test Item Value Reference Range Interpretation Comments Calcium Lvl (test code = Calcium Lvl) 9.0 8.5-10.5 [place] 846001-05-24 21:13:00 Test Item Value Reference Range Interpretation Comments AGAP (test code = AGAP) 7.5 10.0-20.0 [place] 846001-05-24 21:13:00 Test Item Value Reference Range Interpretation Comments eGFR (test code = eGFR) 126 [facility]2021-05-24 21:13:00 Test Item Value Reference Range Interpretation Comments Lactic Acid Lvl (test code = Lactic 0.6 0.5-2.2 Acid Lvl) [place] 806511-05-24 21:13:00 Test Item Value Reference Range Interpretation Comments hCG Tot (test code = hCG Tot) no gt [facility]YlpxwbfGMCIKTIWZC8549-68-28 21:13:00 Test Item Value Reference Range Interpretation Comments WBC X 10x3 (test code = WBC X 10x3) 7.9 3.7-10.4 [place] [address]-05-24 21:13:00 Test Item Value Reference Range Interpretation Comments RBC X 10x6 (test code = RBC X 10x6) 4.80 4.20-5.40 [place] 308111-05-24 21:13:00 Test Item Value Reference Range Interpretation Comments Hgb (test code = Hgb) 12.4 12.0-16.0 [place] [address]-05-24 21:13:00 Test Item Value Reference Range Interpretation Comments Hct (test code = Hct) 37.9 36.0-48.0 [place] [address]-05-24 21:13:00 Test Item Value Reference Range Interpretation Comments MCV (test code = MCV) 78.9 80.0-98.0 [place] [address]-05-24 21:13:00 Test Item Value Reference Range Interpretation Comments MCH (test code = MCH) 25.7 pg 27.0-31.0 [place] 308111-05-24 21:13:00 Test Item Value Reference Range Interpretation Comments MCHC (test code = MCHC) 32.6 32.0-36.0 [place] 308111-05-24 21:13:00 Test Item Value Reference Range Interpretation Comments RDW (test code = RDW) 15.5 11.5-14.5 [place] 308111-05-24 21:13:00 Test Item Value Reference Range Interpretation Comments Platelet (test code = Platelet) 243 133-450 [place] 308111-05-24 21:13:00 Test Item Value Reference Range Interpretation Comments MPV (test code = MPV) 9.4 7.4-10.4 [place] 308111-05-24 21:13:00 Test Item Value Reference Range Interpretation Comments Segs (test code = Segs) 56.1 45.0-75.0 [place] [address]-05-24 21:13:00 Test Item Value Reference Range Interpretation Comments Lymphocytes (test code = Lymphocytes) 32.2 20.0-40.0 [place] 308111-05-24 21:13:00 Test Item Value Reference Range Interpretation Comments Monocytes (test code = Monocytes) 9.1 2.0-12.0 [place] 308111-05-24 21:13:00 Test Item Value Reference Range Interpretation Comments Eosinophils (test code = 2.2 See_Comment [A utomated message] The Eosinophils) system which ge nerated this result tra nsmitted reference range : <=4.0. The reference r kat was not used to int erpret this result as normal/abnormal . [place] 308111-05-24 21:13:00 Test Item Value Reference Range Interpretation Comments Basophils (test code = 0.4 See_Comment [Aut omated message] The Basophils) system which ge nerated this result tra nsmitted reference range : <=1.0. The reference r kat was not used to int erpret this result as normal/abnormal . [place] 308111-05-24 21:13:00 Test Item Value Reference Range Interpretation Comments Neutrophils # (test code = Neutrophils 4.4 1.5-8.1 #) [place] 308111-05-24 21:13:00 Test Item Value Reference Range Interpretation Comments Lymphocytes # (test code = Lymphocytes 2.5 1.0-5.5 #) [place] [address]-05-24 21:13:00 Test Item Value Reference Range Interpretation Comments Monocytes # (test code 0.7 See_Comment [Aut omated message] The = Monocytes #) system which generated this result tra nsmitted reference range : <=0.8. The reference r kat was not used to int erpret this result as normal/abnormal . [place] 308111-05-24 21:13:00 Test Item Value Reference Range Interpretation Comments Eosinophils # (test code 0.2 See_Comment [A utomated message] The = Eosinophils #) system whic h generated this result tra nsmitted reference range : <=0.5. The reference r kat was not used to int erpret this result as normal/abnormal . [place] [address]-05-24 21:13:00 Test Item Value Reference Range Interpretation Comments Microcyte (test code = 1+ *ABN*(01/20/21 Microcyte) 4:13 PM) [place] 846001-05-24 21:13:00 Test Item Value Reference Range Interpretation Comments Glucose Lvl (test code = Glucose Lvl) 89 70-99 [place] 846001-05-24 21:13:00 Test Item Value Reference Range Interpretation Comments BUN (test code = BUN) 8 7-22 [place] [address]-05-24 21:13:00 Test Item Value Reference Range Interpretation Comments Creatinine Lvl (test code = Creatinine 0.55 0.50-1.40 Lvl) [place] 846001-05-24 21:13:00 Test Item Value Reference Range Interpretation Comments Sodium Lvl (test code = Sodium Lvl) 140 135-145 [place] 846001-05-24 21:13:00 Test Item Value Reference Range Interpretation Comments Potassium Lvl (test code = Potassium 3.5 3.5-5.1 Lvl) [place] 846001-05-24 21:13:00 Test Item Value Reference Range Interpretation Comments Chloride Lvl (test code = Chloride Lvl) 109 95-109 [place] 846001-05-24 21:13:00 Test Item Value Reference Range Interpretation Comments CO2 (test code = CO2) 27 24-32 [facility]2021-05-24 21:13:00 Test Item Value Reference Range Interpretation Comments Calcium Lvl (test code = Calcium Lvl) 9.0 8.5-10.5 [place] 846001-05-24 21:13:00 Test Item Value Reference Range Interpretation Comments AGAP (test code = AGAP) 7.5 10.0-20.0 [facility]2021-05-24 21:13:00 Test Item Value Reference Range Interpretation Comments eGFR (test code = eGFR) 126 [facility]2021-05-24 21:13:00 Test Item Value Reference Range Interpretation Comments Lactic Acid Lvl (test code = Lactic 0.6 0.5-2.2 Acid Lvl) [place] 88827021-05-24 21:13:00 Test Item Value Reference Range Interpretation Comments hCG Tot (test code = hCG Tot) no gt [facility]GwklhqqZUMMNDKDMJ7289-10-36 21:13:00 Test Item Value Reference Range Interpretation Comments WBC X 10x3 (test code = WBC X 10x3) 7.9 3.7-10.4 [facility]CdauwgqRWAPDYBIVF5485-75-95 21:13:00 Test Item Value Reference Range Interpretation Comments RBC X 10x6 (test code = RBC X 10x6) 4.80 4.20-5.40 [facility] HeightsRpsirzgMKGTYZBUIR0226-49-15 21:13:00 Test Item Value Reference Range Interpretation Comments Hgb (test code = Hgb) 12.4 12.0-16.0 [facility] HeightsWeljhubYKIUNDGEVH3335-88-73 21:13:00 Test Item Value Reference Range Interpretation Comments Hct (test code = Hct) 37.9 36.0-48.0 [place] 308111-05-24 21:13:00 Test Item Value Reference Range Interpretation Comments MCV (test code = MCV) 78.9 80.0-98.0 [place] 308111-05-24 21:13:00 Test Item Value Reference Range Interpretation Comments MCH (test code = MCH) 25.7 pg 27.0-31.0 [facility] HeightsIqetezmCLDIYNQBNM6476-15-37 21:13:00 Test Item Value Reference Range Interpretation Comments MCHC (test code = MCHC) 32.6 32.0-36.0 [place] 308111-05-24 21:13:00 Test Item Value Reference Range Interpretation Comments RDW (test code = RDW) 15.5 11.5-14.5 [place] 308111-05-24 21:13:00 Test Item Value Reference Range Interpretation Comments Platelet (test code = Platelet) 243 133-450 [place] 308111-05-24 21:13:00 Test Item Value Reference Range Interpretation Comments MPV (test code = MPV) 9.4 7.4-10.4 [place] 308111-05-24 21:13:00 Test Item Value Reference Range Interpretation Comments Segs (test code = Segs) 56.1 45.0-75.0 [place] [address]-05-24 21:13:00 Test Item Value Reference Range Interpretation Comments Lymphocytes (test code = Lymphocytes) 32.2 20.0-40.0 [place] [address]-05-24 21:13:00 Test Item Value Reference Range Interpretation Comments Monocytes (test code = Monocytes) 9.1 2.0-12.0 [place] [address]-05-24 21:13:00 Test Item Value Reference Range Interpretation Comments Eosinophils (test code = 2.2 See_Comment [A utomated message] The Eosinophils) system which ge nerated this result tra nsmitted reference range : <=4.0. The reference r kat was not used to int erpret this result as normal/abnormal . [place] 308111-05-24 21:13:00 Test Item Value Reference Range Interpretation Comments Basophils (test code = 0.4 See_Comment [Aut omated message] The Basophils) system which ge nerated this result tra nsmitted reference range : <=1.0. The reference r kat was not used to int erpret this result as normal/abnormal . [place] 308111-05-24 21:13:00 Test Item Value Reference Range Interpretation Comments Neutrophils # (test code = Neutrophils 4.4 1.5-8.1 #) [place] 308111-05-24 21:13:00 Test Item Value Reference Range Interpretation Comments Lymphocytes # (test code = Lymphocytes 2.5 1.0-5.5 #) [place] 308111-05-24 21:13:00 Test Item Value Reference Range Interpretation Comments Monocytes # (test code 0.7 See_Comment [Aut omated message] The = Monocytes #) system which generated this result tra nsmitted reference range : <=0.8. The reference r kat was not used to int erpret this result as normal/abnormal . [place] 308111-05-24 21:13:00 Test Item Value Reference Range Interpretation Comments Eosinophils # (test code 0.2 See_Comment [A utomated message] The = Eosinophils #) system whic h generated this result tra nsmitted reference range : <=0.5. The reference r kat was not used to int erpret this result as normal/abnormal . [place] 308111-05-24 21:13:00 Test Item Value Reference Range Interpretation Comments Microcyte (test code = 1+ *ABN*(01/20/21 Microcyte) 4:13 PM) [place] 846001-05-24 21:13:00 Test Item Value Reference Range Interpretation Comments Glucose Lvl (test code = Glucose Lvl) 89 70-99 [place] 846001-05-24 21:13:00 Test Item Value Reference Range Interpretation Comments BUN (test code = BUN) 8 7-22 [place] 846001-05-24 21:13:00 Test Item Value Reference Range Interpretation Comments Creatinine Lvl (test code = Creatinine 0.55 0.50-1.40 Lvl) [place] 846001-05-24 21:13:00 Test Item Value Reference Range Interpretation Comments Sodium Lvl (test code = Sodium Lvl) 140 135-145 [place] 846001-05-24 21:13:00 Test Item Value Reference Range Interpretation Comments Potassium Lvl (test code = Potassium 3.5 3.5-5.1 Lvl) [place] 846001-05-24 21:13:00 Test Item Value Reference Range Interpretation Comments Chloride Lvl (test code = Chloride Lvl) 109 95-109 [place] 846001-05-24 21:13:00 Test Item Value Reference Range Interpretation Comments CO2 (test code = CO2) 27 24-32 [place] 846001-05-24 21:13:00 Test Item Value Reference Range Interpretation Comments Calcium Lvl (test code = Calcium Lvl) 9.0 8.5-10.5 [facility]2021-05-24 21:13:00 Test Item Value Reference Range Interpretation Comments AGAP (test code = AGAP) 7.5 10.0-20.0 [facility]2021-05-24 21:13:00 Test Item Value Reference Range Interpretation Comments eGFR (test code = eGFR) 126 [facility]2021-05-24 21:13:00 Test Item Value Reference Range Interpretation Comments Lactic Acid Lvl (test code = Lactic 0.6 0.5-2.2 Acid Lvl) [facility]D7475[facility]-97 21:13:00 Test Item Value Reference Range Interpretation Comments hCG Tot (test code = hCG Tot) no gt [facility]WusxaofXASKVWQIOC8736-18-34 21:13:00 Test Item Value Reference Range Interpretation Comments WBC X 10x3 (test code = WBC X 10x3) 7.9 3.7-10.4 [facility] HeightsGcpzznpUIAPUFJQCT2480-09-11 21:13:00 Test Item Value Reference Range Interpretation Comments RBC X 10x6 (test code = RBC X 10x6) 4.80 4.20-5.40 [facility] HeightsCrztngkLRMQDGTMWG9191-61-99 21:13:00 Test Item Value Reference Range Interpretation Comments Hgb (test code = Hgb) 12.4 12.0-16.0 [facility] HeightsMbknaxkRWKYDUPCOJ6158-23-77 21:13:00 Test Item Value Reference Range Interpretation Comments Hct (test code = Hct) 37.9 36.0-48.0 [facility] HeightsUjxrjwxDMUEPSPRVQ2137-67-05 21:13:00 Test Item Value Reference Range Interpretation Comments MCV (test code = MCV) 78.9 80.0-98.0 [place] 308111-05-24 21:13:00 Test Item Value Reference Range Interpretation Comments MCH (test code = MCH) 25.7 pg 27.0-31.0 [facility] HeightsPaioixvUMKJLKARBD4914-30-28 21:13:00 Test Item Value Reference Range Interpretation Comments MCHC (test code = MCHC) 32.6 32.0-36.0 [facility] HeightsZutxgawSIGUFABQGQ9354-90-41 21:13:00 Test Item Value Reference Range Interpretation Comments RDW (test code = RDW) 15.5 11.5-14.5 [place] 308111-05-24 21:13:00 Test Item Value Reference Range Interpretation Comments Platelet (test code = Platelet) 243 133-450 [place] 308111-05-24 21:13:00 Test Item Value Reference Range Interpretation Comments MPV (test code = MPV) 9.4 7.4-10.4 [place] 308111-05-24 21:13:00 Test Item Value Reference Range Interpretation Comments Segs (test code = Segs) 56.1 45.0-75.0 [place] 308111-05-24 21:13:00 Test Item Value Reference Range Interpretation Comments Lymphocytes (test code = Lymphocytes) 32.2 20.0-40.0 [place] [address]-05-24 21:13:00 Test Item Value Reference Range Interpretation Comments Monocytes (test code = Monocytes) 9.1 2.0-12.0 [place] [address]-05-24 21:13:00 Test Item Value Reference Range Interpretation Comments Eosinophils (test code = 2.2 See_Comment [A utomated message] The Eosinophils) system which ge nerated this result tra nsmitted reference range : <=4.0. The reference r kat was not used to int erpret this result as normal/abnormal . [place] [address]-05-24 21:13:00 Test Item Value Reference Range Interpretation Comments Basophils (test code = 0.4 See_Comment [Aut omated message] The Basophils) system which ge nerated this result tra nsmitted reference range : <=1.0. The reference r kat was not used to int erpret this result as normal/abnormal . [place] 308111-05-24 21:13:00 Test Item Value Reference Range Interpretation Comments Neutrophils # (test code = Neutrophils 4.4 1.5-8.1 #) [place] 308111-05-24 21:13:00 Test Item Value Reference Range Interpretation Comments Lymphocytes # (test code = Lymphocytes 2.5 1.0-5.5 #) [place] 308111-05-24 21:13:00 Test Item Value Reference Range Interpretation Comments Monocytes # (test code 0.7 See_Comment [Aut omated message] The = Monocytes #) system which generated this result tra nsmitted reference range : <=0.8. The reference r akt was not used to int erpret this result as normal/abnormal . [place] 308111-05-24 21:13:00 Test Item Value Reference Range Interpretation Comments Eosinophils # (test code 0.2 See_Comment [A utomated message] The = Eosinophils #) system whic h generated this result tra nsmitted reference range : <=0.5. The reference r kat was not used to int erpret this result as normal/abnormal . [place] 308111-05-24 21:13:00 Test Item Value Reference Range Interpretation Comments Microcyte (test code = 1+ *ABN*(01/20/21 Microcyte) 4:13 PM) [place] [address]-05-24 21:13:00 Test Item Value Reference Range Interpretation Comments Glucose Lvl (test code = Glucose Lvl) 89 70-99 [place] 846001-05-24 21:13:00 Test Item Value Reference Range Interpretation Comments BUN (test code = BUN) 8 7-22 [place] 846001-05-24 21:13:00 Test Item Value Reference Range Interpretation Comments Creatinine Lvl (test code = Creatinine 0.55 0.50-1.40 Lvl) [place] 846001-05-24 21:13:00 Test Item Value Reference Range Interpretation Comments Sodium Lvl (test code = Sodium Lvl) 140 135-145 [place] 846001-05-24 21:13:00 Test Item Value Reference Range Interpretation Comments Potassium Lvl (test code = Potassium 3.5 3.5-5.1 Lvl) [place] 846001-05-24 21:13:00 Test Item Value Reference Range Interpretation Comments Chloride Lvl (test code = Chloride Lvl) 109 95-109 [place] 846001-05-24 21:13:00 Test Item Value Reference Range Interpretation Comments CO2 (test code = CO2) 27 24-32 [place] 846001-05-24 21:13:00 Test Item Value Reference Range Interpretation Comments Calcium Lvl (test code = Calcium Lvl) 9.0 8.5-10.5 [place] 846001-05-24 21:13:00 Test Item Value Reference Range Interpretation Comments AGAP (test code = AGAP) 7.5 10.0-20.0 [facility]2021-05-24 21:13:00 Test Item Value Reference Range Interpretation Comments eGFR (test code = eGFR) 126 [facility]2021-05-24 21:13:00 Test Item Value Reference Range Interpretation Comments Lactic Acid Lvl (test code = Lactic 0.6 0.5-2.2 Acid Lvl) [facility]ZevfmfmAJCXSDURRUCXX8330-02-44 21:13:00 Test Item Value Reference Range Interpretation Comments hCG Tot (test code = hCG Tot) no gt [facility] HeightsOguiqugLGJXVMGPPK5371-64-53 21:13:00 Test Item Value Reference Range Interpretation Comments WBC X 10x3 (test code = WBC X 10x3) 7.9 3.7-10.4 [facility] HeightsUksnliwAVNFAAMCMY9062-15-20 21:13:00 Test Item Value Reference Range Interpretation Comments RBC X 10x6 (test code = RBC X 10x6) 4.80 4.20-5.40 [facility] HeightsUqrcnxzPKNVFNUIYR2341-13-65 21:13:00 Test Item Value Reference Range Interpretation Comments Hgb (test code = Hgb) 12.4 12.0-16.0 [facility] HeightsVlwpqvvKFPFKLDLLO5853-79-15 21:13:00 Test Item Value Reference Range Interpretation Comments Hct (test code = Hct) 37.9 36.0-48.0 [place] 308111-05-24 21:13:00 Test Item Value Reference Range Interpretation Comments MCV (test code = MCV) 78.9 80.0-98.0 [place] 308111-05-24 21:13:00 Test Item Value Reference Range Interpretation Comments MCH (test code = MCH) 25.7 pg 27.0-31.0 [place] [address]-05-24 21:13:00 Test Item Value Reference Range Interpretation Comments MCHC (test code = MCHC) 32.6 32.0-36.0 [facility] HeightsZasxczrUFYMCCOMUK0150-52-47 21:13:00 Test Item Value Reference Range Interpretation Comments RDW (test code = RDW) 15.5 11.5-14.5 [place] 308111-05-24 21:13:00 Test Item Value Reference Range Interpretation Comments Platelet (test code = Platelet) 243 133-450 [facility] HeightsYpflyjgCGSQCEESQQ7505-20-66 21:13:00 Test Item Value Reference Range Interpretation Comments MPV (test code = MPV) 9.4 7.4-10.4 [facility] HeightsDqzzjhrDGRITLYZBD9853-64-88 21:13:00 Test Item Value Reference Range Interpretation Comments Segs (test code = Segs) 56.1 45.0-75.0 [facility] HeightsKvjqavuMHLAQRHOPW3156-18-10 21:13:00 Test Item Value Reference Range Interpretation Comments Lymphocytes (test code = Lymphocytes) 32.2 20.0-40.0 [place] 308111-05-24 21:13:00 Test Item Value Reference Range Interpretation Comments Monocytes (test code = Monocytes) 9.1 2.0-12.0 [facility] HeightsBvoorppJWRDVPWVED2758-18-86 21:13:00 Test Item Value Reference Range Interpretation Comments Eosinophils (test code = 2.2 See_Comment [A utomated message] The Eosinophils) system which ge nerated this result tra nsmitted reference range : <=4.0. The reference r kat was not used to int erpret this result as normal/abnormal . [facility] HeightsFiplgauLVQELBQTLQ1036-46-52 21:13:00 Test Item Value Reference Range Interpretation Comments Basophils (test code = 0.4 See_Comment [Aut omated message] The Basophils) system which ge nerated this result tra nsmitted reference range : <=1.0. The reference r kat was not used to int erpret this result as normal/abnormal . [facility] HeightsNepptaiBMBTBYZSHL5408-46-65 21:13:00 Test Item Value Reference Range Interpretation Comments Neutrophils # (test code = Neutrophils 4.4 1.5-8.1 #) [place] 308111-05-24 21:13:00 Test Item Value Reference Range Interpretation Comments Lymphocytes # (test code = Lymphocytes 2.5 1.0-5.5 #) [place] 308111-05-24 21:13:00 Test Item Value Reference Range Interpretation Comments Monocytes # (test code 0.7 See_Comment [Aut omated message] The = Monocytes #) system which generated this result tra nsmitted reference range : <=0.8. The reference r kat was not used to int erpret this result as normal/abnormal . [place] 308111-05-24 21:13:00 Test Item Value Reference Range Interpretation Comments Eosinophils # (test code 0.2 See_Comment [A utomated message] The = Eosinophils #) system whic h generated this result tra nsmitted reference range : <=0.5. The reference r kat was not used to int erpret this result as normal/abnormal . [place] 308111-05-24 21:13:00 Test Item Value Reference Range Interpretation Comments Microcyte (test code = 1+ *ABN*(01/20/21 Microcyte) 4:13 PM) [place] 846001-05-24 21:13:00 Test Item Value Reference Range Interpretation Comments Glucose Lvl (test code = Glucose Lvl) 89 70-99 [place] 846001-05-24 21:13:00 Test Item Value Reference Range Interpretation Comments BUN (test code = BUN) 8 7-22 [place] 846001-05-24 21:13:00 Test Item Value Reference Range Interpretation Comments Creatinine Lvl (test code = Creatinine 0.55 0.50-1.40 Lvl) [place] 846001-05-24 21:13:00 Test Item Value Reference Range Interpretation Comments Sodium Lvl (test code = Sodium Lvl) 140 135-145 [place] 846001-05-24 21:13:00 Test Item Value Reference Range Interpretation Comments Potassium Lvl (test code = Potassium 3.5 3.5-5.1 Lvl) [place] 846001-05-24 21:13:00 Test Item Value Reference Range Interpretation Comments Chloride Lvl (test code = Chloride Lvl) 109 95-109 [place] 846001-05-24 21:13:00 Test Item Value Reference Range Interpretation Comments CO2 (test code = CO2) 27 24-32 [place] 846001-05-24 21:13:00 Test Item Value Reference Range Interpretation Comments Calcium Lvl (test code = Calcium Lvl) 9.0 8.5-10.5 [place] 846001-05-24 21:13:00 Test Item Value Reference Range Interpretation Comments AGAP (test code = AGAP) 7.5 10.0-20.0 [place] 846001-05-24 21:13:00 Test Item Value Reference Range Interpretation Comments eGFR (test code = eGFR) 126 [facility] 21:13:00 Test Item Value Reference Range Interpretation Comments Lactic Acid Lvl (test code = Lactic 0.6 0.5-2.2 Acid Lvl) [facility]CL[facility]ONXAC9270[facility] 21:13:00 Test Item Value Reference Range Interpretation Comments hCG Tot (test code = hCG Tot) no gt [facility] HeightsMmtmazsIDZMZLRNWT1411-65-03 21:13:00 Test Item Value Reference Range Interpretation Comments WBC X 10x3 (test code = WBC X 10x3) 7.9 3.7-10.4 [facility] HeightsMgenrbyFRPUVHLTMM5048-04-95 21:13:00 Test Item Value Reference Range Interpretation Comments RBC X 10x6 (test code = RBC X 10x6) 4.80 4.20-5.40 [facility] HeightsRwtquarFDXQQUNYJJ6000-39-23 21:13:00 Test Item Value Reference Range Interpretation Comments Hgb (test code = Hgb) 12.4 12.0-16.0 [facility] HeightsWbhfpmiTLFFSHLWQK5838-19-73 21:13:00 Test Item Value Reference Range Interpretation Comments Hct (test code = Hct) 37.9 36.0-48.0 [facility] HeightsQxbmfpbVKUVVRADYJ7827-18-98 21:13:00 Test Item Value Reference Range Interpretation Comments MCV (test code = MCV) 78.9 80.0-98.0 [facility] HeightsAjigstaQUHLWSMLNM0039-06-78 21:13:00 Test Item Value Reference Range Interpretation Comments MCH (test code = MCH) 25.7 pg 27.0-31.0 [facility] HeightsDbpefpqQHUNHASPBI0951-71-91 21:13:00 Test Item Value Reference Range Interpretation Comments MCHC (test code = MCHC) 32.6 32.0-36.0 [facility] HeightsPhejkuzVMBMLKWWAV0543-79-03 21:13:00 Test Item Value Reference Range Interpretation Comments RDW (test code = RDW) 15.5 11.5-14.5 [facility] HeightsFziielfECVFHNXPHZ4342-06-14 21:13:00 Test Item Value Reference Range Interpretation Comments Platelet (test code = Platelet) 243 133-450 [facility] HeightsQfomlgdIJSZZYIYWT7528-91-30 21:13:00 Test Item Value Reference Range Interpretation Comments MPV (test code = MPV) 9.4 7.4-10.4 [place] [address]-05-24 21:13:00 Test Item Value Reference Range Interpretation Comments Segs (test code = Segs) 56.1 45.0-75.0 [place] [address]-05-24 21:13:00 Test Item Value Reference Range Interpretation Comments Lymphocytes (test code = Lymphocytes) 32.2 20.0-40.0 [place] 308111-05-24 21:13:00 Test Item Value Reference Range Interpretation Comments Monocytes (test code = Monocytes) 9.1 2.0-12.0 [place] 308111-05-24 21:13:00 Test Item Value Reference Range Interpretation Comments Eosinophils (test code = 2.2 See_Comment [A utomated message] The Eosinophils) system which ge nerated this result tra nsmitted reference range : <=4.0. The reference r kat was not used to int erpret this result as normal/abnormal . [place] [address]-05-24 21:13:00 Test Item Value Reference Range Interpretation Comments Basophils (test code = 0.4 See_Comment [Aut omated message] The Basophils) system which ge nerated this result tra nsmitted reference range : <=1.0. The reference r kat was not used to int erpret this result as normal/abnormal . [place] [address]-05-24 21:13:00 Test Item Value Reference Range Interpretation Comments Neutrophils # (test code = Neutrophils 4.4 1.5-8.1 #) [place] 308111-05-24 21:13:00 Test Item Value Reference Range Interpretation Comments Lymphocytes # (test code = Lymphocytes 2.5 1.0-5.5 #) [place] [address]-05-24 21:13:00 Test Item Value Reference Range Interpretation Comments Monocytes # (test code 0.7 See_Comment [Aut omated message] The = Monocytes #) system which generated this result tra nsmitted reference range : <=0.8. The reference r kat was not used to int erpret this result as normal/abnormal . [place] 308111-05-24 21:13:00 Test Item Value Reference Range Interpretation Comments Eosinophils # (test code 0.2 See_Comment [A utomated message] The = Eosinophils #) system [employer] h generated this result tra nsmitted reference range : <=0.5. The reference r kat was not used to int erpret this result as normal/abnormal . [facility] HeightsCcxzcubWCTIEYVIEF0983-63-90 21:13:00 Test Item Value Reference Range Interpretation Comments Microcyte (test code = 1+ *ABN*(01/20/21 Microcyte) 4:13 PM) [place] 846001-05-24 21:13:00 Test Item Value Reference Range Interpretation Comments Glucose Lvl (test code = Glucose Lvl) 89 70-99 [place] 846001-05-24 21:13:00 Test Item Value Reference Range Interpretation Comments BUN (test code = BUN) 8 7-22 [place] 846001-05-24 21:13:00 Test Item Value Reference Range Interpretation Comments Creatinine Lvl (test code = Creatinine 0.55 0.50-1.40 Lvl) [place] 846001-05-24 21:13:00 Test Item Value Reference Range Interpretation Comments Sodium Lvl (test code = Sodium Lvl) 140 135-145 [place] 846001-05-24 21:13:00 Test Item Value Reference Range Interpretation Comments Potassium Lvl (test code = Potassium 3.5 3.5-5.1 Lvl) [place] 846001-05-24 21:13:00 Test Item Value Reference Range Interpretation Comments Chloride Lvl (test code = Chloride Lvl) 109 95-109 [place] 846001-05-24 21:13:00 Test Item Value Reference Range Interpretation Comments CO2 (test code = CO2) 27 24-32 [place] 846001-05-24 21:13:00 Test Item Value Reference Range Interpretation Comments Calcium Lvl (test code = Calcium Lvl) 9.0 8.5-10.5 [place] 846001-05-24 21:13:00 Test Item Value Reference Range Interpretation Comments AGAP (test code = AGAP) 7.5 10.0-20.0 [place] 846001-05-24 21:13:00 Test Item Value Reference Range Interpretation Comments eGFR (test code = eGFR) 126 [place] 846001-05-24 21:13:00 Test Item Value Reference Range Interpretation Comments Lactic Acid Lvl (test code = Lactic 0.6 0.5-2.2 Acid Lvl) [facility]djzvvWCLRTSGYMBMGI7230-28-51 21:13:00 Test Item Value Reference Range Interpretation Comments hCG Tot (test code = hCG Tot) no gt [facility] HeightsGnsrjdxZRGKBCFQEF8649-88-51 21:13:00 Test Item Value Reference Range Interpretation Comments WBC X 10x3 (test code = WBC X 10x3) 7.9 3.7-10.4 [facility] HeightsVghyiqsPVSDPHBYON7325-19-14 21:13:00 Test Item Value Reference Range Interpretation Comments RBC X 10x6 (test code = RBC X 10x6) 4.80 4.20-5.40 [facility] HeightsFlofewzAURCIESCQC5832-89-70 21:13:00 Test Item Value Reference Range Interpretation Comments Hgb (test code = Hgb) 12.4 12.0-16.0 [facility] HeightsIqeexvcTPXOEYDZOR3475-94-60 21:13:00 Test Item Value Reference Range Interpretation Comments Hct (test code = Hct) 37.9 36.0-48.0 [facility] HeightsOesmgwqNTZQZQPZMV7153-14-50 21:13:00 Test Item Value Reference Range Interpretation Comments MCV (test code = MCV) 78.9 80.0-98.0 [facility] HeightsNfzjlqhGEQUOTCJSD3182-38-41 21:13:00 Test Item Value Reference Range Interpretation Comments MCH (test code = MCH) 25.7 pg 27.0-31.0 [facility] HeightsKvqhwrxAHPXLNNNBH9025-35-74 21:13:00 Test Item Value Reference Range Interpretation Comments MCHC (test code = MCHC) 32.6 32.0-36.0 [facility] HeightsZzjvzqlJFDDCUQTHJ1400-01-50 21:13:00 Test Item Value Reference Range Interpretation Comments RDW (test code = RDW) 15.5 11.5-14.5 [place] 308111-05-24 21:13:00 Test Item Value Reference Range Interpretation Comments Platelet (test code = Platelet) 243 133-450 [facility] HeightsDqbvibpVTPFOKFGBI4048-27-70 21:13:00 Test Item Value Reference Range Interpretation Comments MPV (test code = MPV) 9.4 7.4-10.4 [facility] HeightsKbgwupdUGYCTRXWFQ4210-93-89 21:13:00 Test Item Value Reference Range Interpretation Comments Segs (test code = Segs) 56.1 45.0-75.0 [place] 308111-05-24 21:13:00 Test Item Value Reference Range Interpretation Comments Lymphocytes (test code = Lymphocytes) 32.2 20.0-40.0 [place] [address]-05-24 21:13:00 Test Item Value Reference Range Interpretation Comments Monocytes (test code = Monocytes) 9.1 2.0-12.0 [place] 308111-05-24 21:13:00 Test Item Value Reference Range Interpretation Comments Eosinophils (test code = 2.2 See_Comment [A utomated message] The Eosinophils) system which ge nerated this result tra nsmitted reference range : <=4.0. The reference r kat was not used to int erpret this result as normal/abnormal . [place] [address]-05-24 21:13:00 Test Item Value Reference Range Interpretation Comments Basophils (test code = 0.4 See_Comment [Aut omated message] The Basophils) system which ge nerated this result tra nsmitted reference range : <=1.0. The reference r kat was not used to int erpret this result as normal/abnormal . [place] 308111-05-24 21:13:00 Test Item Value Reference Range Interpretation Comments Neutrophils # (test code = Neutrophils 4.4 1.5-8.1 #) [place] [address]-05-24 21:13:00 Test Item Value Reference Range Interpretation Comments Lymphocytes # (test code = Lymphocytes 2.5 1.0-5.5 #) [place] [address]-05-24 21:13:00 Test Item Value Reference Range Interpretation Comments Monocytes # (test code 0.7 See_Comment [Aut omated message] The = Monocytes #) system which generated this result tra nsmitted reference range : <=0.8. The reference r kat was not used to int erpret this result as normal/abnormal . [place] 308111-05-24 21:13:00 Test Item Value Reference Range Interpretation Comments Eosinophils # (test code 0.2 See_Comment [A utomated message] The = Eosinophils #) system [facility] h generated this result tra nsmitted reference range : <=0.5. The reference r kat was not used to int erpret this result as normal/abnormal . [facility] HeightsDhkoqurSZMPPQOXGA8098-93-86 21:13:00 Test Item Value Reference Range Interpretation Comments Microcyte (test code = 1+ *ABN*(01/20/21 Microcyte) 4:13 PM) [facility]2016-01-21 13:03:00 Test Item Value Reference Range Interpretation Comments Magnesium Lvl (test code = Magnesium 1.9 1.8-2.4 Lvl) [facility]2016-01-21 13:03:00 Test Item Value Reference Range Interpretation Comments eGFR (test code = eGFR) 127 [facility]2016-01-21 13:03:00 Test Item Value Reference Range Interpretation Comments Creatinine Lvl (test code = Creatinine 0.60 0.50-1.40 Lvl) [facility]2016-01-21 13:03:00 Test Item Value Reference Range Interpretation Comments Glucose Lvl (test code = Glucose Lvl) 82 70-99 [facility]2016-01-21 13:03:00 Test Item Value Reference Range Interpretation Comments BUN (test code = BUN) 7 7-22 [facility]2016-01-21 13:03:00 Test Item Value Reference Range Interpretation Comments Potassium Lvl (test code = Potassium 4.1 3.5-5.1 Lvl) [facility]2016-01-21 13:03:00 Test Item Value Reference Range Interpretation Comments Sodium Lvl (test code = Sodium Lvl) 141 135-145 [facility]2016-01-21 13:03:00 Test Item Value Reference Range Interpretation Comments Chloride Lvl (test code = Chloride Lvl) 108 95-109 [facility]2016-01-21 13:03:00 Test Item Value Reference Range Interpretation Comments CO2 (test code = CO2) 20 24-32 [facility]2016-01-21 13:03:00 Test Item Value Reference Range Interpretation Comments Calcium Lvl (test code = Calcium Lvl) 8.9 8.5-10.5 [facility]2016-01-21 13:03:00 Test Item Value Reference Range Interpretation Comments AGAP (test code = AGAP) 17.1 10.0-20.0 [facility] HeightsRopezdqQZRJBMGVBR6579-33-43 13:03:00 Test Item Value Reference Range Interpretation Comments Lymphocytes # (test code = Lymphocytes 2.3 1.0-5.5 #) [facility] HeightsEgktmdgQPOIKDLWJV1396-51-21 13:03:00 Test Item Value Reference Range Interpretation Comments Basophils (test code = 1.0 See_Comment [Aut omated message] The Basophils) system which ge nerated this result tra nsmitted reference range : <=1.0. The reference r kat was not used to int erpret this result as normal/abnormal . [facility] HeightsZmvjkfqAXBNDYENCN1130-24-10 13:03:00 Test Item Value Reference Range Interpretation Comments Segs-Bands # (test code = Segs-Bands #) 3.3 1.5-8.1 [facility] HeightsXxtdvibYAXTQBTIPY0235-09-28 13:03:00 Test Item Value Reference Range Interpretation Comments Eosinophils (test code = 2.5 See_Comment [A utomated message] The Eosinophils) system which ge nerated this result tra nsmitted reference range : <=4.0. The reference r kat was not used to int erpret this result as normal/abnormal . [facility] HeightsSamrdbfUQDXDOBOHF3460-75-21 13:03:00 Test Item Value Reference Range Interpretation Comments Eosinophils # (test code 0.2 See_Comment [A utomated message] The = Eosinophils #) system whic h generated this result tra nsmitted reference range : <=0.5. The reference r kat was not used to int erpret this result as normal/abnormal . [facility] HeightsNfuoqzdJMBDYCUZOO6818-03-29 13:03:00 Test Item Value Reference Range Interpretation Comments Monocytes # (test code 0.7 See_Comment [Aut omated message] The = Monocytes #) system which generated this result tra nsmitted reference range : <=0.8. The reference r kat was not used to int erpret this result as normal/abnormal . [facility] HeightsOhpskogFFOUULNGND8582-94-65 13:03:00 Test Item Value Reference Range Interpretation Comments Microcyte (test code = 1+ *ABN*(09/19/15 Microcyte) 7:03 AM) [facility] HeightsNxrcrqaWNJKIWGGAF4319-32-41 13:03:00 Test Item Value Reference Range Interpretation Comments Basophils # (test code 0.1 See_Comment [Aut omated message] The = Basophils #) system which generated this result tra nsmitted reference range : <=0.2. The reference r kat was not used to int erpret this result as normal/abnormal . [facility] HeightsHhuwmzxACUILRVSGN2157-74-24 13:03:00 Test Item Value Reference Range Interpretation Comments Monocytes (test code = Monocytes) 10.4 2.0-12.0 [facility] HeightsZqmwirmOMYDFZJJEV3655-00-43 13:03:00 Test Item Value Reference Range Interpretation Comments Lymphocytes (test code = Lymphocytes) 35.3 20.0-40.0 [facility] HeightsVcriljbLSJASHMECH9559-79-12 13:03:00 Test Item Value Reference Range Interpretation Comments Segs (test code = Segs) 50.8 45.0-75.0 [facility] HeightsJcyelcnMDJHRSFBTM2554-36-53 13:03:00 Test Item Value Reference Range Interpretation Comments MCHC (test code = MCHC) 30.5 32.0-36.0 [facility] HeightsQffzpcpRSXCMOZKGA6350-39-09 13:03:00 Test Item Value Reference Range Interpretation Comments Platelet (test code = Platelet) 175 133-450 [facility] HeightsTfvpvmrDWLFWZHCSK8918-18-60 13:03:00 Test Item Value Reference Range Interpretation Comments RDW (test code = RDW) 17.1 11.5-14.5 [facility] HeightsRkjalywHJSSTJXLIZ0864-89-09 13:03:00 Test Item Value Reference Range Interpretation Comments MCV (test code = MCV) 78.4 80.0-98.0 [facility] HeightsYctelmfGCUEWUIJWZ6207-28-45 13:03:00 Test Item Value Reference Range Interpretation Comments MCH (test code = MCH) 24.0 pg 27.0-31.0 [facility] HeightsXzvgeqkUSEKDPTLNW6870-34-75 13:03:00 Test Item Value Reference Range Interpretation Comments RBC (test code = RBC) 5.15 4.20-5.40 [facility] HeightsIrhniamWBGZDCEYYW8311-98-81 13:03:00 Test Item Value Reference Range Interpretation Comments Hct (test code = Hct) 40.4 36.0-48.0 [facility] HeightsItikvqpXNXFYXBWMV7535-66-86 13:03:00 Test Item Value Reference Range Interpretation Comments WBC (test code = WBC) 6.5 3.7-10.4 [facility] HeightsWjqgwnkUJVDXGQAOH3364-66-55 13:03:00 Test Item Value Reference Range Interpretation Comments MPV (test code = MPV) 10.2 7.4-10.4 [facility] HeightsIctlrleEGPHDCWGUR5766-54-76 13:03:00 Test Item Value Reference Range Interpretation Comments Hgb (test code = Hgb) 12.3 12.0-16.0 [facility]2016-01-21 13:03:00 Test Item Value Reference Range Interpretation Comments Magnesium Lvl (test code = Magnesium 1.9 1.8-2.4 Lvl) [facility]2016-01-21 13:03:00 Test Item Value Reference Range Interpretation Comments eGFR (test code = eGFR) 127 [facility]2016-01-21 13:03:00 Test Item Value Reference Range Interpretation Comments Creatinine Lvl (test code = Creatinine 0.60 0.50-1.40 Lvl) [facility]2016-01-21 13:03:00 Test Item Value Reference Range Interpretation Comments Glucose Lvl (test code = Glucose Lvl) 82 70-99 [facility]2016-01-21 13:03:00 Test Item Value Reference Range Interpretation Comments BUN (test code = BUN) 7 7-22 [facility]2016-01-21 13:03:00 Test Item Value Reference Range Interpretation Comments Potassium Lvl (test code = Potassium 4.1 3.5-5.1 Lvl) [facility]2016-01-21 13:03:00 Test Item Value Reference Range Interpretation Comments Sodium Lvl (test code = Sodium Lvl) 141 135-145 [facility]2016-01-21 13:03:00 Test Item Value Reference Range Interpretation Comments Chloride Lvl (test code = Chloride Lvl) 108 95-109 [facility]2016-01-21 13:03:00 Test Item Value Reference Range Interpretation Comments CO2 (test code = CO2) 20 24-32 [facility]2016-01-21 13:03:00 Test Item Value Reference Range Interpretation Comments Calcium Lvl (test code = Calcium Lvl) 8.9 8.5-10.5 [facility]2016-01-21 13:03:00 Test Item Value Reference Range Interpretation Comments AGAP (test code = AGAP) 17.1 10.0-20.0 [facility] HeightsHuakoxpLEROZKVYLR0617-13-72 13:03:00 Test Item Value Reference Range Interpretation Comments Lymphocytes # (test code = Lymphocytes 2.3 1.0-5.5 #) [facility] HeightsYzikxppXIAOMZEXNV0208-14-24 13:03:00 Test Item Value Reference Range Interpretation Comments Basophils (test code = 1.0 See_Comment [Aut omated message] The Basophils) system which ge nerated this result tra nsmitted reference range : <=1.0. The reference r kat was not used to int erpret this result as normal/abnormal . [facility] HeightsLnoevzuMZEHAHDNNW1430-90-69 13:03:00 Test Item Value Reference Range Interpretation Comments Segs-Bands # (test code = Segs-Bands #) 3.3 1.5-8.1 [facility] HeightsFxouoblOGJRQNFDCZ3056-59-00 13:03:00 Test Item Value Reference Range Interpretation Comments Eosinophils (test code = 2.5 See_Comment [A utomated message] The Eosinophils) system which ge nerated this result tra nsmitted reference range : <=4.0. The reference r kat was not used to int erpret this result as normal/abnormal . [facility] HeightsMnvyrlfVWTDPYDFLK1683-65-93 13:03:00 Test Item Value Reference Range Interpretation Comments Eosinophils # (test code 0.2 See_Comment [A utomated message] The = Eosinophils #) system whic h generated this result tra nsmitted reference range : <=0.5. The reference r kat was not used to int erpret this result as normal/abnormal . [facility] HeightsMlbsyycSGSEJSGLKY8237-11-44 13:03:00 Test Item Value Reference Range Interpretation Comments Monocytes # (test code 0.7 See_Comment [Aut omated message] The = Monocytes #) system which generated this result tra nsmitted reference range : <=0.8. The reference r kat was not used to int erpret this result as normal/abnormal . [facility] HeightsJvuobvdWPURWUNHKF6095-33-17 13:03:00 Test Item Value Reference Range Interpretation Comments Microcyte (test code = 1+ *ABN*(09/19/15 Microcyte) 7:03 AM) [facility] HeightsRtdofgyHILIQQLTZQ0793-07-74 13:03:00 Test Item Value Reference Range Interpretation Comments Basophils # (test code 0.1 See_Comment [Aut omated message] The = Basophils #) system which generated this result tra nsmitted reference range : <=0.2. The reference r kat was not used to int erpret this result as normal/abnormal . [facility] HeightsFvehfhtCCJZZCXWYA8441-32-04 13:03:00 Test Item Value Reference Range Interpretation Comments Monocytes (test code = Monocytes) 10.4 2.0-12.0 [facility] HeightsJwtkvwdSKUNIQJSLU6384-00-33 13:03:00 Test Item Value Reference Range Interpretation Comments Lymphocytes (test code = Lymphocytes) 35.3 20.0-40.0 [facility] HeightsPkkgyuqOZLOYBQMYA9913-02-01 13:03:00 Test Item Value Reference Range Interpretation Comments Segs (test code = Segs) 50.8 45.0-75.0 [facility] HeightsBibczhuGWVMBKXFCB6153-37-40 13:03:00 Test Item Value Reference Range Interpretation Comments MCHC (test code = MCHC) 30.5 32.0-36.0 [facility] HeightsNhctaodKATGQDXDER0633-73-64 13:03:00 Test Item Value Reference Range Interpretation Comments Platelet (test code = Platelet) 175 133-450 [facility] HeightsEzvonnvSPHZSDZQUN8548-79-44 13:03:00 Test Item Value Reference Range Interpretation Comments RDW (test code = RDW) 17.1 11.5-14.5 [facility] HeightsSoppuzuFDKQIRCSEG2922-23-95 13:03:00 Test Item Value Reference Range Interpretation Comments MCV (test code = MCV) 78.4 80.0-98.0 [facility] HeightsNvctqiqPMJNKHJGVU3203-69-21 13:03:00 Test Item Value Reference Range Interpretation Comments MCH (test code = MCH) 24.0 pg 27.0-31.0 [facility] HeightsBuhkjweUKIIIAMKNL3517-51-44 13:03:00 Test Item Value Reference Range Interpretation Comments RBC (test code = RBC) 5.15 4.20-5.40 [facility] HeightsMfagjbkUSXPZOFLUQ6873-87-19 13:03:00 Test Item Value Reference Range Interpretation Comments Hct (test code = Hct) 40.4 36.0-48.0 [facility] HeightsPjcqmdfFVHEGWKKXC5661-10-81 13:03:00 Test Item Value Reference Range Interpretation Comments WBC (test code = WBC) 6.5 3.7-10.4 [facility] HeightsNiltmssGOPRJNVJSC7598-25-51 13:03:00 Test Item Value Reference Range Interpretation Comments MPV (test code = MPV) 10.2 7.4-10.4 [facility] HeightsDgpebpnSHIFMNYFQE4752-48-80 13:03:00 Test Item Value Reference Range Interpretation Comments Hgb (test code = Hgb) 12.3 12.0-16.0 [facility]2016-01-21 13:03:00 Test Item Value Reference Range Interpretation Comments Magnesium Lvl (test code = Magnesium 1.9 1.8-2.4 Lvl) [facility]2016-01-21 13:03:00 Test Item Value Reference Range Interpretation Comments eGFR (test code = eGFR) 127 [facility]2016-01-21 13:03:00 Test Item Value Reference Range Interpretation Comments Creatinine Lvl (test code = Creatinine 0.60 0.50-1.40 Lvl) [facility]2016-01-21 13:03:00 Test Item Value Reference Range Interpretation Comments Glucose Lvl (test code = Glucose Lvl) 82 70-99 [facility]2016-01-21 13:03:00 Test Item Value Reference Range Interpretation Comments BUN (test code = BUN) 7 7-22 [facility]2016-01-21 13:03:00 Test Item Value Reference Range Interpretation Comments Potassium Lvl (test code = Potassium 4.1 3.5-5.1 Lvl) [facility]2016-01-21 13:03:00 Test Item Value Reference Range Interpretation Comments Sodium Lvl (test code = Sodium Lvl) 141 135-145 [facility]2016-01-21 13:03:00 Test Item Value Reference Range Interpretation Comments Chloride Lvl (test code = Chloride Lvl) 108 95-109 [facility]2016-01-21 13:03:00 Test Item Value Reference Range Interpretation Comments CO2 (test code = CO2) 20 24-32 [facility]2016-01-21 13:03:00 Test Item Value Reference Range Interpretation Comments Calcium Lvl (test code = Calcium Lvl) 8.9 8.5-10.5 [facility]2016-01-21 13:03:00 Test Item Value Reference Range Interpretation Comments AGAP (test code = AGAP) 17.1 10.0-20.0 [facility] HeightsVbpunkaCJRUOXPFPP4856-64-81 13:03:00 Test Item Value Reference Range Interpretation Comments Lymphocytes # (test code = Lymphocytes 2.3 1.0-5.5 #) [facility] HeightsOqjlizsMBZZCOREMJ9540-77-90 13:03:00 Test Item Value Reference Range Interpretation Comments Basophils (test code = 1.0 See_Comment [Aut omated message] The Basophils) system which ge nerated this result tra nsmitted reference range : <=1.0. The reference r kat was not used to int erpret this result as normal/abnormal . [facility] HeightsHvyairgUJYBEWJZTZ4018-56-69 13:03:00 Test Item Value Reference Range Interpretation Comments Segs-Bands # (test code = Segs-Bands #) 3.3 1.5-8.1 [facility] HeightsGxardgyQJUPKZFLJM9608-86-89 13:03:00 Test Item Value Reference Range Interpretation Comments Eosinophils (test code = 2.5 See_Comment [A utomated message] The Eosinophils) system which ge nerated this result tra nsmitted reference range : <=4.0. The reference r kat was not used to int erpret this result as normal/abnormal . [facility] HeightsOnvhgbhKNIJULSZVT7507-88-19 13:03:00 Test Item Value Reference Range Interpretation Comments Eosinophils # (test code 0.2 See_Comment [A utomated message] The = Eosinophils #) system whic h generated this result tra nsmitted reference range : <=0.5. The reference r kat was not used to int erpret this result as normal/abnormal . [facility] HeightsPbmjiwuADGMIHVWNA1401-47-12 13:03:00 Test Item Value Reference Range Interpretation Comments Monocytes # (test code 0.7 See_Comment [Aut omated message] The = Monocytes #) system which generated this result tra nsmitted reference range : <=0.8. The reference r kat was not used to int erpret this result as normal/abnormal . [facility] HeightsIbvmhrtGFCZYHBZLN3008-07-15 13:03:00 Test Item Value Reference Range Interpretation Comments Microcyte (test code = 1+ *ABN*(09/19/15 Microcyte) 7:03 AM) [facility] HeightsSfncgpsRQOUZLVDYX6911-22-64 13:03:00 Test Item Value Reference Range Interpretation Comments Basophils # (test code 0.1 See_Comment [Aut omated message] The = Basophils #) system which generated this result tra nsmitted reference range : <=0.2. The reference r kat was not used to int erpret this result as normal/abnormal . [facility] HeightsKeewdthSASHWYDGHH8041-28-70 13:03:00 Test Item Value Reference Range Interpretation Comments Monocytes (test code = Monocytes) 10.4 2.0-12.0 [facility] HeightsAqjyaglMMIQKVCHQC3164-74-03 13:03:00 Test Item Value Reference Range Interpretation Comments Lymphocytes (test code = Lymphocytes) 35.3 20.0-40.0 [facility] HeightsJutikdwTOMXHPLYQR6464-09-02 13:03:00 Test Item Value Reference Range Interpretation Comments Segs (test code = Segs) 50.8 45.0-75.0 [facility] HeightsHmywsmcVMBKTAOVFC7839-18-66 13:03:00 Test Item Value Reference Range Interpretation Comments MCHC (test code = MCHC) 30.5 32.0-36.0 [facility] HeightsTtickutCWZOTCJOAW8077-05-86 13:03:00 Test Item Value Reference Range Interpretation Comments Platelet (test code = Platelet) 175 133-450 [facility] HeightsFtzlresWBZJZKAXDJ6480-21-58 13:03:00 Test Item Value Reference Range Interpretation Comments RDW (test code = RDW) 17.1 11.5-14.5 [facility] HeightsFsvisavYLDDUCEQIG5534-29-81 13:03:00 Test Item Value Reference Range Interpretation Comments MCV (test code = MCV) 78.4 80.0-98.0 [facility] HeightsKvtiubfKCSJYIVYZC8538-00-46 13:03:00 Test Item Value Reference Range Interpretation Comments MCH (test code = MCH) 24.0 pg 27.0-31.0 [facility] HeightsKrufbpiVRPUZGGGAF6424-49-62 13:03:00 Test Item Value Reference Range Interpretation Comments RBC (test code = RBC) 5.15 4.20-5.40 [facility] 13:03:00 Test Item Value Reference Range Interpretation Comments Magnesium Lvl (test code = Magnesium 1.9 1.8-2.4 Lvl) [facility] HeightsHsqmdmjGZEUFPSBHB5098-42-06 13:03:00 Test Item Value Reference Range Interpretation Comments Hct (test code = Hct) 40.4 36.0-48.0 [facility] HeightsYlvfigoFNRBZVIEPV6562-83-17 13:03:00 Test Item Value Reference Range Interpretation Comments WBC (test code = WBC) 6.5 3.7-10.4 [facility] HeightsApsfxaySYGINREDUE8025-98-21 13:03:00 Test Item Value Reference Range Interpretation Comments MPV (test code = MPV) 10.2 7.4-10.4 [facility] HeightsTpftpwhOFYDWKEJZF3386-87-45 13:03:00 Test Item Value Reference Range Interpretation Comments Hgb (test code = Hgb) 12.3 12.0-16.0 [facility]2016-01-21 13:03:00 Test Item Value Reference Range Interpretation Comments eGFR (test code = eGFR) 127 [facility]2016-01-21 13:03:00 Test Item Value Reference Range Interpretation Comments Creatinine Lvl (test code = Creatinine 0.60 0.50-1.40 Lvl) [facility]2016-01-21 13:03:00 Test Item Value Reference Range Interpretation Comments Glucose Lvl (test code = Glucose Lvl) 82 70-99 [facility]2016-01-21 13:03:00 Test Item Value Reference Range Interpretation Comments BUN (test code = BUN) 7 7-22 [facility]2016-01-21 13:03:00 Test Item Value Reference Range Interpretation Comments Potassium Lvl (test code = Potassium 4.1 3.5-5.1 Lvl) [facility]2016-01-21 13:03:00 Test Item Value Reference Range Interpretation Comments Sodium Lvl (test code = Sodium Lvl) 141 135-145 [facility]2016-01-21 13:03:00 Test Item Value Reference Range Interpretation Comments Chloride Lvl (test code = Chloride Lvl) 108 95-109 [facility]2016-01-21 13:03:00 Test Item Value Reference Range Interpretation Comments CO2 (test code = CO2) 20 24-32 [facility]2016-01-21 13:03:00 Test Item Value Reference Range Interpretation Comments Calcium Lvl (test code = Calcium Lvl) 8.9 8.5-10.5 [facility]2016-01-21 13:03:00 Test Item Value Reference Range Interpretation Comments AGAP (test code = AGAP) 17.1 10.0-20.0 [facility] HeightsEcikoklBEZOVYKXJF9344-06-24 13:03:00 Test Item Value Reference Range Interpretation Comments Lymphocytes # (test code = Lymphocytes 2.3 1.0-5.5 #) [facility] HeightsYvrftcfRYMSHHNIVA2059-16-46 13:03:00 Test Item Value Reference Range Interpretation Comments Basophils (test code = 1.0 See_Comment [Aut omated message] The Basophils) system which ge nerated this result tra nsmitted reference range : <=1.0. The reference r kat was not used to int erpret this result as normal/abnormal . [facility] HeightsIeikdblLYOBPVJPBA3491-00-81 13:03:00 Test Item Value Reference Range Interpretation Comments Segs-Bands # (test code = Segs-Bands #) 3.3 1.5-8.1 [facility] HeightsKkbomoeQRLLNBKMIF8263-73-32 13:03:00 Test Item Value Reference Range Interpretation Comments Eosinophils (test code = 2.5 See_Comment [A utomated message] The Eosinophils) system which ge nerated this result tra nsmitted reference range : <=4.0. The reference r kat was not used to int erpret this result as normal/abnormal . [facility] HeightsTmmhhpmLMMKEKLTSY2798-25-66 13:03:00 Test Item Value Reference Range Interpretation Comments Eosinophils # (test code 0.2 See_Comment [A utomated message] The = Eosinophils #) system whic h generated this result tra nsmitted reference range : <=0.5. The reference r kat was not used to int erpret this result as normal/abnormal . [facility] HeightsEkvwhsyNURVXFOAGE7985-74-22 13:03:00 Test Item Value Reference Range Interpretation Comments Monocytes # (test code 0.7 See_Comment [Aut omated message] The = Monocytes #) system which generated this result tra nsmitted reference range : <=0.8. The reference r kat was not used to int erpret this result as normal/abnormal . [facility] HeightsTggfolyYEKHTGWBND6214-34-91 13:03:00 Test Item Value Reference Range Interpretation Comments Microcyte (test code = 1+ *ABN*(09/19/15 Microcyte) 7:03 AM) [facility] HeightsBpmnhbeEUTECZQFBM9719-84-49 13:03:00 Test Item Value Reference Range Interpretation Comments Basophils # (test code 0.1 See_Comment [Aut omated message] The = Basophils #) system which generated this result tra nsmitted reference range : <=0.2. The reference r kat was not used to int erpret this result as normal/abnormal . [facility] HeightsUkfevsiRJXQENAVZN5787-05-99 13:03:00 Test Item Value Reference Range Interpretation Comments Monocytes (test code = Monocytes) 10.4 2.0-12.0 [facility] HeightsSkskyctADPGJZKHPB4833-66-91 13:03:00 Test Item Value Reference Range Interpretation Comments Lymphocytes (test code = Lymphocytes) 35.3 20.0-40.0 [facility] HeightsCxzvkwsOGWSCAVIKK6939-79-11 13:03:00 Test Item Value Reference Range Interpretation Comments Segs (test code = Segs) 50.8 45.0-75.0 [facility] HeightsHhrgyavIQMTOTWJXN9844-48-93 13:03:00 Test Item Value Reference Range Interpretation Comments MCHC (test code = MCHC) 30.5 32.0-36.0 [facility] HeightsSdctwftFMVSVLQLTB7219-91-08 13:03:00 Test Item Value Reference Range Interpretation Comments Platelet (test code = Platelet) 175 133-450 [facility] HeightsTcdtmngRBRYVAXAWA9694-57-83 13:03:00 Test Item Value Reference Range Interpretation Comments RDW (test code = RDW) 17.1 11.5-14.5 [facility] HeightsOvygrcfQLGAKWOGKW2830-37-42 13:03:00 Test Item Value Reference Range Interpretation Comments MCV (test code = MCV) 78.4 80.0-98.0 [facility] HeightsTuaupzuORUGWKVNVM7028-92-63 13:03:00 Test Item Value Reference Range Interpretation Comments MCH (test code = MCH) 24.0 pg 27.0-31.0 [facility] HeightsUkhkdisZVWLLGDPMW5351-01-25 13:03:00 Test Item Value Reference Range Interpretation Comments RBC (test code = RBC) 5.15 4.20-5.40 [facility] HeightsJbmaxxvCFXZBQUGFO0953-96-19 13:03:00 Test Item Value Reference Range Interpretation Comments Hct (test code = Hct) 40.4 36.0-48.0 [facility] HeightsQvjwkllKRNPJLOCPZ9660-77-98 13:03:00 Test Item Value Reference Range Interpretation Comments WBC (test code = WBC) 6.5 3.7-10.4 [facility] HeightsTluypdeMXHYNUGFDS6575-87-52 13:03:00 Test Item Value Reference Range Interpretation Comments MPV (test code = MPV) 10.2 7.4-10.4 [facility] HeightsMnslpwxHQJVQVJCSW4368-37-77 13:03:00 Test Item Value Reference Range Interpretation Comments Hgb (test code = Hgb) 12.3 12.0-16.0 [facility]2016-01-21 13:03:00 Test Item Value Reference Range Interpretation Comments Magnesium Lvl (test code = Magnesium 1.9 1.8-2.4 Lvl) [facility]2016-01-21 13:03:00 Test Item Value Reference Range Interpretation Comments eGFR (test code = eGFR) 127 [facility]2016-01-21 13:03:00 Test Item Value Reference Range Interpretation Comments Creatinine Lvl (test code = Creatinine 0.60 0.50-1.40 Lvl) [facility]2016-01-21 13:03:00 Test Item Value Reference Range Interpretation Comments Glucose Lvl (test code = Glucose Lvl) 82 70-99 [facility]2016-01-21 13:03:00 Test Item Value Reference Range Interpretation Comments BUN (test code = BUN) 7 7-22 [facility]2016-01-21 13:03:00 Test Item Value Reference Range Interpretation Comments Potassium Lvl (test code = Potassium 4.1 3.5-5.1 Lvl) [facility]2016-01-21 13:03:00 Test Item Value Reference Range Interpretation Comments Sodium Lvl (test code = Sodium Lvl) 141 135-145 [facility]2016-01-21 13:03:00 Test Item Value Reference Range Interpretation Comments Chloride Lvl (test code = Chloride Lvl) 108 95-109 [facility]2016-01-21 13:03:00 Test Item Value Reference Range Interpretation Comments CO2 (test code = CO2) 20 24-32 [facility]2016-01-21 13:03:00 Test Item Value Reference Range Interpretation Comments Calcium Lvl (test code = Calcium Lvl) 8.9 8.5-10.5 [facility]2016-01-21 13:03:00 Test Item Value Reference Range Interpretation Comments AGAP (test code = AGAP) 17.1 10.0-20.0 [facility]JplovmnRPHFABDTYT2396-14-40 13:03:00 Test Item Value Reference Range Interpretation Comments Lymphocytes # (test code = Lymphocytes 2.3 1.0-5.5 #) [facility] HeightsTbadqvoEEXOGMMTHB3580-78-12 13:03:00 Test Item Value Reference Range Interpretation Comments Basophils (test code = 1.0 See_Comment [Aut omated message] The Basophils) system which ge nerated this result tra nsmitted reference range : <=1.0. The reference r kat was not used to int erpret this result as normal/abnormal . [facility] HeightsWbethrvIITGLHUWIT6292-08-37 13:03:00 Test Item Value Reference Range Interpretation Comments Segs-Bands # (test code = Segs-Bands #) 3.3 1.5-8.1 [facility] HeightsLzqejmeNKQBDQCURQ0596-06-03 13:03:00 Test Item Value Reference Range Interpretation Comments Eosinophils (test code = 2.5 See_Comment [A utomated message] The Eosinophils) system which ge nerated this result tra nsmitted reference range : <=4.0. The reference r kat was not used to int erpret this result as normal/abnormal . [facility] HeightsAayznqjRLMBCQSVCU8299-83-17 13:03:00 Test Item Value Reference Range Interpretation Comments Eosinophils # (test code 0.2 See_Comment [A utomated message] The = Eosinophils #) system whic h generated this result tra nsmitted reference range : <=0.5. The reference r kat was not used to int erpret this result as normal/abnormal . [facility] HeightsMdrvtbfVKJRHDLQED1032-90-84 13:03:00 Test Item Value Reference Range Interpretation Comments Monocytes # (test code 0.7 See_Comment [Aut omated message] The = Monocytes #) system which generated this result tra nsmitted reference range : <=0.8. The reference r kat was not used to int erpret this result as normal/abnormal . [facility] HeightsErrjxmbXMKGGDLHSP7914-75-63 13:03:00 Test Item Value Reference Range Interpretation Comments Microcyte (test code = 1+ *ABN*(09/19/15 Microcyte) 7:03 AM) [facility] HeightsVzuihdxFSXLNAYRUV2913-27-37 13:03:00 Test Item Value Reference Range Interpretation Comments Basophils # (test code 0.1 See_Comment [Aut omated message] The = Basophils #) system which generated this result tra nsmitted reference range : <=0.2. The reference r kat was not used to int erpret this result as normal/abnormal . [facility] HeightsKatjtjfFWAVIIHQEX5077-81-39 13:03:00 Test Item Value Reference Range Interpretation Comments Monocytes (test code = Monocytes) 10.4 2.0-12.0 [facility] HeightsVecticnVGRETCJNTR5290-45-44 13:03:00 Test Item Value Reference Range Interpretation Comments Lymphocytes (test code = Lymphocytes) 35.3 20.0-40.0 [facility] HeightsYhpvjccHOQJQOXVNA1113-09-37 13:03:00 Test Item Value Reference Range Interpretation Comments Segs (test code = Segs) 50.8 45.0-75.0 [facility] HeightsAbgmswnOEGJRXKECE6332-42-51 13:03:00 Test Item Value Reference Range Interpretation Comments MCHC (test code = MCHC) 30.5 32.0-36.0 [facility] HeightsAqrjirrLYNSUTHJZJ7240-23-60 13:03:00 Test Item Value Reference Range Interpretation Comments Platelet (test code = Platelet) 175 133-450 [facility] HeightsGjnxcdsGKQJAXWPES9565-16-79 13:03:00 Test Item Value Reference Range Interpretation Comments RDW (test code = RDW) 17.1 11.5-14.5 [facility] HeightsWwbwqkoRKFWJIXWEL8849-19-82 13:03:00 Test Item Value Reference Range Interpretation Comments MCV (test code = MCV) 78.4 80.0-98.0 [facility] HeightsXfpcfjlCEUYXHCGEC9105-31-17 13:03:00 Test Item Value Reference Range Interpretation Comments MCH (test code = MCH) 24.0 pg 27.0-31.0 [facility] HeightsVmlhtjuHWXLGUTRUK3218-87-60 13:03:00 Test Item Value Reference Range Interpretation Comments RBC (test code = RBC) 5.15 4.20-5.40 [facility] HeightsWfdwbaoEZSHTVICUO2104-71-51 13:03:00 Test Item Value Reference Range Interpretation Comments Hct (test code = Hct) 40.4 36.0-48.0 [facility] HeightsFwvktxkJPQTSXQREV0910-70-60 13:03:00 Test Item Value Reference Range Interpretation Comments WBC (test code = WBC) 6.5 3.7-10.4 [place]206-01-21 13:03:00 Test Item Value Reference Range Interpretation Comments MPV (test code = MPV) 10.2 7.4-10.4 [facility] HeightsRydloswCZKIGCKNTO8576-65-29 13:03:00 Test Item Value Reference Range Interpretation Comments Hgb (test code = Hgb) 12.3 12.0-16.0 [facility]2016-01-21 13:03:00 Test Item Value Reference Range Interpretation Comments Magnesium Lvl (test code = Magnesium 1.9 1.8-2.4 Lvl) [facility]2016-01-21 13:03:00 Test Item Value Reference Range Interpretation Comments eGFR (test code = eGFR) 127 [facility]2016-01-21 13:03:00 Test Item Value Reference Range Interpretation Comments Creatinine Lvl (test code = Creatinine 0.60 0.50-1.40 Lvl) [facility]2016-01-21 13:03:00 Test Item Value Reference Range Interpretation Comments Glucose Lvl (test code = Glucose Lvl) 82 70-99 [facility]2016-01-21 13:03:00 Test Item Value Reference Range Interpretation Comments BUN (test code = BUN) 7 7-22 [facility]2016-01-21 13:03:00 Test Item Value Reference Range Interpretation Comments Potassium Lvl (test code = Potassium 4.1 3.5-5.1 Lvl) [facility]2016-01-21 13:03:00 Test Item Value Reference Range Interpretation Comments Sodium Lvl (test code = Sodium Lvl) 141 135-145 [facility]2016-01-21 13:03:00 Test Item Value Reference Range Interpretation Comments Chloride Lvl (test code = Chloride Lvl) 108 95-109 [facility]2016-01-21 13:03:00 Test Item Value Reference Range Interpretation Comments CO2 (test code = CO2) 20 24-32 [facility]2016-01-21 13:03:00 Test Item Value Reference Range Interpretation Comments Calcium Lvl (test code = Calcium Lvl) 8.9 8.5-10.5 [facility]2016-01-21 13:03:00 Test Item Value Reference Range Interpretation Comments AGAP (test code = AGAP) 17.1 10.0-20.0 [facility] HeightsQsmbgyyQFRUXKTJKL7847-10-01 13:03:00 Test Item Value Reference Range Interpretation Comments Lymphocytes # (test code = Lymphocytes 2.3 1.0-5.5 #) [facility] HeightsEdhsybyHCKYRFYQFY1855-04-30 13:03:00 Test Item Value Reference Range Interpretation Comments Basophils (test code = 1.0 See_Comment [Aut omated message] The Basophils) system which ge nerated this result tra nsmitted reference range : <=1.0. The reference r kat was not used to int erpret this result as normal/abnormal . [facility] HeightsOpovmqvVWQKVKKBNW9484-99-65 13:03:00 Test Item Value Reference Range Interpretation Comments Segs-Bands # (test code = Segs-Bands #) 3.3 1.5-8.1 [facility] HeightsIeaxzvoUWVXWUURLM8602-52-85 13:03:00 Test Item Value Reference Range Interpretation Comments Eosinophils (test code = 2.5 See_Comment [A utomated message] The Eosinophils) system which ge nerated this result tra nsmitted reference range : <=4.0. The reference r kat was not used to int erpret this result as normal/abnormal . [facility] HeightsPnlwtwgWPBJJRUIFE3762-48-74 13:03:00 Test Item Value Reference Range Interpretation Comments Eosinophils # (test code 0.2 See_Comment [A utomated message] The = Eosinophils #) system whic h generated this result tra nsmitted reference range : <=0.5. The reference r kat was not used to int erpret this result as normal/abnormal . [facility] HeightsXdjdcjoDLHFBSXGYN4125-29-75 13:03:00 Test Item Value Reference Range Interpretation Comments Monocytes # (test code 0.7 See_Comment [Aut omated message] The = Monocytes #) system which generated this result tra nsmitted reference range : <=0.8. The reference r kat was not used to int erpret this result as normal/abnormal . [facility] HeightsRlwwvjfZQIGVEFTMN1666-33-33 13:03:00 Test Item Value Reference Range Interpretation Comments Microcyte (test code = 1+ *ABN*(09/19/15 Microcyte) 7:03 AM) [facility] HeightsNdmsffiWTYQYJPBLV2952-71-78 13:03:00 Test Item Value Reference Range Interpretation Comments Basophils # (test code 0.1 See_Comment [Aut omated message] The = Basophils #) system which generated this result tra nsmitted reference range : <=0.2. The reference r kat was not used to int erpret this result as normal/abnormal . [facility] HeightsKenwpxaEMODEIZMVA5339-41-60 13:03:00 Test Item Value Reference Range Interpretation Comments Monocytes (test code = Monocytes) 10.4 2.0-12.0 [facility] HeightsEeavoixRCQMRDVGXO1370-83-00 13:03:00 Test Item Value Reference Range Interpretation Comments Lymphocytes (test code = Lymphocytes) 35.3 20.0-40.0 [facility] HeightsRhunmnoEJBBAKUUHU8270-11-41 13:03:00 Test Item Value Reference Range Interpretation Comments Segs (test code = Segs) 50.8 45.0-75.0 [facility] HeightsZfygyldNQOWEMHPVQ2626-35-07 13:03:00 Test Item Value Reference Range Interpretation Comments MCHC (test code = MCHC) 30.5 32.0-36.0 [facility] HeightsTlqlvdkUCJRQZHESI5390-16-99 13:03:00 Test Item Value Reference Range Interpretation Comments Platelet (test code = Platelet) 175 133-450 [facility] HeightsOrdtklgAZZDFTMWVU8409-48-14 13:03:00 Test Item Value Reference Range Interpretation Comments RDW (test code = RDW) 17.1 11.5-14.5 [facility] HeightsLydlhqfZLTIJTUESG2116-53-47 13:03:00 Test Item Value Reference Range Interpretation Comments MCV (test code = MCV) 78.4 80.0-98.0 [facility] HeightsYmhjswzGTAYZIEOXB7819-33-60 13:03:00 Test Item Value Reference Range Interpretation Comments MCH (test code = MCH) 24.0 pg 27.0-31.0 [facility] HeightsHkjwbtqYIPOMZSOBK8532-20-15 13:03:00 Test Item Value Reference Range Interpretation Comments RBC (test code = RBC) 5.15 4.20-5.40 [facility] HeightsCfifuzaFEOXZAOSTO3659-23-26 13:03:00 Test Item Value Reference Range Interpretation Comments Hct (test code = Hct) 40.4 36.0-48.0 [facility] HeightsWkvqaboTUMGZVNIIY3654-59-81 13:03:00 Test Item Value Reference Range Interpretation Comments WBC (test code = WBC) 6.5 3.7-10.4 [facility] HeightsSkyjtjvMFZCDBZUNN9509-76-14 13:03:00 Test Item Value Reference Range Interpretation Comments MPV (test code = MPV) 10.2 7.4-10.4 [facility] HeightsVsegvniZOKBMMITPJ6621-89-62 13:03:00 Test Item Value Reference Range Interpretation Comments Hgb (test code = Hgb) 12.3 12.0-16.0 [facility]2016-01-21 13:03:00 Test Item Value Reference Range Interpretation Comments Magnesium Lvl (test code = Magnesium 1.9 1.8-2.4 Lvl) [facility]2016-01-21 13:03:00 Test Item Value Reference Range Interpretation Comments eGFR (test code = eGFR) 127 [facility]2016-01-21 13:03:00 Test Item Value Reference Range Interpretation Comments Creatinine Lvl (test code = Creatinine 0.60 0.50-1.40 Lvl) [facility]2016-01-21 13:03:00 Test Item Value Reference Range Interpretation Comments Glucose Lvl (test code = Glucose Lvl) 82 70-99 [facility]2016-01-21 13:03:00 Test Item Value Reference Range Interpretation Comments BUN (test code = BUN) 7 7-22 [facility]2016-01-21 13:03:00 Test Item Value Reference Range Interpretation Comments Potassium Lvl (test code = Potassium 4.1 3.5-5.1 Lvl) [facility]2016-01-21 13:03:00 Test Item Value Reference Range Interpretation Comments Sodium Lvl (test code = Sodium Lvl) 141 135-145 [facility]2016-01-21 13:03:00 Test Item Value Reference Range Interpretation Comments Chloride Lvl (test code = Chloride Lvl) 108 95-109 [facility]2016-01-21 13:03:00 Test Item Value Reference Range Interpretation Comments CO2 (test code = CO2) 20 24-32 [facility]2016-01-21 13:03:00 Test Item Value Reference Range Interpretation Comments Calcium Lvl (test code = Calcium Lvl) 8.9 8.5-10.5 [facility]2016-01-21 13:03:00 Test Item Value Reference Range Interpretation Comments AGAP (test code = AGAP) 17.1 10.0-20.0 [facility] HeightsJiovzfsBQDOIHJFKJ5116-47-58 13:03:00 Test Item Value Reference Range Interpretation Comments Lymphocytes # (test code = Lymphocytes 2.3 1.0-5.5 #) [facility] HeightsGaeaahlPULFAYAWNO0573-34-49 13:03:00 Test Item Value Reference Range Interpretation Comments Basophils (test code = 1.0 See_Comment [Aut omated message] The Basophils) system which ge nerated this result tra nsmitted reference range : <=1.0. The reference r kat was not used to int erpret this result as normal/abnormal . [facility] HeightsOihtlzaTJQEAHOKMX2158-53-94 13:03:00 Test Item Value Reference Range Interpretation Comments Segs-Bands # (test code = Segs-Bands #) 3.3 1.5-8.1 [facility] HeightsNbxxkvcUNOFQPLBIQ6583-06-85 13:03:00 Test Item Value Reference Range Interpretation Comments Eosinophils (test code = 2.5 See_Comment [A utomated message] The Eosinophils) system which ge nerated this result tra nsmitted reference range : <=4.0. The reference r kat was not used to int erpret this result as normal/abnormal . [facility] HeightsRmgmpxbGMWIPULWZO6520-23-66 13:03:00 Test Item Value Reference Range Interpretation Comments Eosinophils # (test code 0.2 See_Comment [A utomated message] The = Eosinophils #) system whic h generated this result tra nsmitted reference range : <=0.5. The reference r kat was not used to int erpret this result as normal/abnormal . [facility] HeightsCrdpqhoPDGHAAESCV1321-74-46 13:03:00 Test Item Value Reference Range Interpretation Comments Monocytes # (test code 0.7 See_Comment [Aut omated message] The = Monocytes #) system which generated this result tra nsmitted reference range : <=0.8. The reference r kat was not used to int erpret this result as normal/abnormal . [facility] HeightsSykbemtJHELYUHDXP9515-92-42 13:03:00 Test Item Value Reference Range Interpretation Comments Microcyte (test code = 1+ *ABN*(09/19/15 Microcyte) 7:03 AM) [facility] HeightsJsuigmcXSSBYWOFIB2328-35-56 13:03:00 Test Item Value Reference Range Interpretation Comments Basophils # (test code 0.1 See_Comment [Aut omated message] The = Basophils #) system which generated this result tra nsmitted reference range : <=0.2. The reference r kat was not used to int erpret this result as normal/abnormal . [facility] HeightsNnncvyaCORYIUCYXQ3262-26-26 13:03:00 Test Item Value Reference Range Interpretation Comments Monocytes (test code = Monocytes) 10.4 2.0-12.0 [facility] HeightsIjlaanvWVCQUQLIJA8888-39-53 13:03:00 Test Item Value Reference Range Interpretation Comments Lymphocytes (test code = Lymphocytes) 35.3 20.0-40.0 [facility] HeightsWhmfhbdGLQJZQXMEY8247-34-84 13:03:00 Test Item Value Reference Range Interpretation Comments Segs (test code = Segs) 50.8 45.0-75.0 [facility] HeightsIjmlulzFYROIIHKNI3926-23-76 13:03:00 Test Item Value Reference Range Interpretation Comments MCHC (test code = MCHC) 30.5 32.0-36.0 [facility] HeightsXviywodNHPULHKQUF3122-74-89 13:03:00 Test Item Value Reference Range Interpretation Comments Platelet (test code = Platelet) 175 133-450 [facility] HeightsMdbkqhaUBNDZUAHJD7495-57-29 13:03:00 Test Item Value Reference Range Interpretation Comments RDW (test code = RDW) 17.1 11.5-14.5 [facility] HeightsVfqzxgdYJGQULEUWJ2237-41-10 13:03:00 Test Item Value Reference Range Interpretation Comments MCV (test code = MCV) 78.4 80.0-98.0 [facility] HeightsFppckpjQWGHZICHSZ0667-38-78 13:03:00 Test Item Value Reference Range Interpretation Comments MCH (test code = MCH) 24.0 pg 27.0-31.0 [facility] HeightsXlufacyJHOXHHFMZR4993-96-58 13:03:00 Test Item Value Reference Range Interpretation Comments RBC (test code = RBC) 5.15 4.20-5.40 [facility] HeightsDxvchaxJGAEJGKHXC9645-77-51 13:03:00 Test Item Value Reference Range Interpretation Comments Hct (test code = Hct) 40.4 36.0-48.0 [facility] HeightsPxczztrNLPYZNWJJR9822-00-40 13:03:00 Test Item Value Reference Range Interpretation Comments WBC (test code = WBC) 6.5 3.7-10.4 [facility] HeightsCrlpinyOWBBONWMXQ9023-54-92 13:03:00 Test Item Value Reference Range Interpretation Comments MPV (test code = MPV) 10.2 7.4-10.4 [facility] HeightsFfcnhxhVHWPAMFOCC5454-74-91 13:03:00 Test Item Value Reference Range Interpretation Comments Hgb (test code = Hgb) 12.3 12.0-16.0 [facility]2016-01-21 13:03:00 Test Item Value Reference Range Interpretation Comments Magnesium Lvl (test code = Magnesium 1.9 1.8-2.4 Lvl) [facility]2016-01-21 13:03:00 Test Item Value Reference Range Interpretation Comments eGFR (test code = eGFR) 127 [facility]2016-01-21 13:03:00 Test Item Value Reference Range Interpretation Comments Creatinine Lvl (test code = Creatinine 0.60 0.50-1.40 Lvl) [facility]2016-01-21 13:03:00 Test Item Value Reference Range Interpretation Comments Glucose Lvl (test code = Glucose Lvl) 82 70-99 [facility]2016-01-21 13:03:00 Test Item Value Reference Range Interpretation Comments BUN (test code = BUN) 7 7-22 [facility]2016-01-21 13:03:00 Test Item Value Reference Range Interpretation Comments Potassium Lvl (test code = Potassium 4.1 3.5-5.1 Lvl) [facility]2016-01-21 13:03:00 Test Item Value Reference Range Interpretation Comments Sodium Lvl (test code = Sodium Lvl) 141 135-145 [facility]2016-01-21 13:03:00 Test Item Value Reference Range Interpretation Comments Chloride Lvl (test code = Chloride Lvl) 108 95-109 [facility]2016-01-21 13:03:00 Test Item Value Reference Range Interpretation Comments CO2 (test code = CO2) 20 24-32 [facility]2016-01-21 13:03:00 Test Item Value Reference Range Interpretation Comments Calcium Lvl (test code = Calcium Lvl) 8.9 8.5-10.5 [facility]2016-01-21 13:03:00 Test Item Value Reference Range Interpretation Comments AGAP (test code = AGAP) 17.1 10.0-20.0 [facility] HeightsSjstibrUTJEGYODPD7164-76-74 13:03:00 Test Item Value Reference Range Interpretation Comments Lymphocytes # (test code = Lymphocytes 2.3 1.0-5.5 #) [facility] HeightsWwyxqowOVZNFRNQOY3005-89-05 13:03:00 Test Item Value Reference Range Interpretation Comments Basophils (test code = 1.0 See_Comment [Aut omated message] The Basophils) system which ge nerated this result tra nsmitted reference range : <=1.0. The reference r kat was not used to int erpret this result as normal/abnormal . [facility] HeightsEfpcrmxRYNTQDALDT6624-55-00 13:03:00 Test Item Value Reference Range Interpretation Comments Segs-Bands # (test code = Segs-Bands #) 3.3 1.5-8.1 [facility] HeightsKqqvvbnYDSHQVEZKD9676-71-75 13:03:00 Test Item Value Reference Range Interpretation Comments Eosinophils (test code = 2.5 See_Comment [A utomated message] The Eosinophils) system which ge nerated this result tra nsmitted reference range : <=4.0. The reference r kat was not used to int erpret this result as normal/abnormal . [facility] HeightsGetkdntVZFRECDIYU8571-75-83 13:03:00 Test Item Value Reference Range Interpretation Comments Eosinophils # (test code 0.2 See_Comment [A utomated message] The = Eosinophils #) system whic h generated this result tra nsmitted reference range : <=0.5. The reference r kat was not used to int erpret this result as normal/abnormal . [facility] HeightsFvczmbqZKDJTKUVAR6305-22-98 13:03:00 Test Item Value Reference Range Interpretation Comments Monocytes # (test code 0.7 See_Comment [Aut omated message] The = Monocytes #) system which generated this result tra nsmitted reference range : <=0.8. The reference r kat was not used to int erpret this result as normal/abnormal . [facility] HeightsNzsfyuwLCGFUVBAQM1195-13-96 13:03:00 Test Item Value Reference Range Interpretation Comments Microcyte (test code = 1+ *ABN*(09/19/15 Microcyte) 7:03 AM) [facility] HeightsGgeolutJJBKDJQQDG4816-71-19 13:03:00 Test Item Value Reference Range Interpretation Comments Basophils # (test code 0.1 See_Comment [Aut omated message] The = Basophils #) system which generated this result tra nsmitted reference range : <=0.2. The reference r kat was not used to int erpret this result as normal/abnormal . [facility] HeightsTndbterJCQKRDZILP7490-42-32 13:03:00 Test Item Value Reference Range Interpretation Comments Monocytes (test code = Monocytes) 10.4 2.0-12.0 [facility] HeightsXckscwsLKZDVCDGVX6403-53-32 13:03:00 Test Item Value Reference Range Interpretation Comments Lymphocytes (test code = Lymphocytes) 35.3 20.0-40.0 [facility] HeightsYwxgknlQUTGHJQDNV1444-12-26 13:03:00 Test Item Value Reference Range Interpretation Comments Segs (test code = Segs) 50.8 45.0-75.0 [facility] HeightsHmhntzyWOFIFSKJFN8755-78-26 13:03:00 Test Item Value Reference Range Interpretation Comments MCHC (test code = MCHC) 30.5 32.0-36.0 [facility] HeightsGdtxdqkNFXBLHYSCM4053-27-67 13:03:00 Test Item Value Reference Range Interpretation Comments Platelet (test code = Platelet) 175 133-450 [facility] HeightsEsfteruPKKKFNJRGG8965-61-70 13:03:00 Test Item Value Reference Range Interpretation Comments RDW (test code = RDW) 17.1 11.5-14.5 [facility] HeightsJcihfvdQEBOFWBRVX2188-61-22 13:03:00 Test Item Value Reference Range Interpretation Comments MCV (test code = MCV) 78.4 80.0-98.0 [facility] HeightsUjpgfdiGQJDIAUEEN3233-17-11 13:03:00 Test Item Value Reference Range Interpretation Comments MCH (test code = MCH) 24.0 pg 27.0-31.0 [facility] HeightsYfjhhlfFWNLGLBUFJ6219-47-50 13:03:00 Test Item Value Reference Range Interpretation Comments RBC (test code = RBC) 5.15 4.20-5.40 [facility] HeightsMkurzbgCTKUQGPHVW4709-31-44 13:03:00 Test Item Value Reference Range Interpretation Comments Hct (test code = Hct) 40.4 36.0-48.0 [facility] HeightsVgkmxiqAAZELQSCSH7539-73-60 13:03:00 Test Item Value Reference Range Interpretation Comments WBC (test code = WBC) 6.5 3.7-10.4 [facility] HeightsKdwtvjnJMTYQAZTIA3675-44-29 13:03:00 Test Item Value Reference Range Interpretation Comments MPV (test code = MPV) 10.2 7.4-10.4 [facility] HeightsJlvbxgyRKBBKOZZKD7933-65-54 13:03:00 Test Item Value Reference Range Interpretation Comments Hgb (test code = Hgb) 12.3 12.0-16.0 [facility] [place]2016-01-21 13:03:00 Test Item Value Reference Range Interpretation Comments Magnesium Lvl (test code = Magnesium 1.9 1.8-2.4 Lvl) [facility] [place]2016-01-21 13:03:00 Test Item Value Reference Range Interpretation Comments eGFR (test code = eGFR) 127 [facility] [place]2016-01-21 13:03:00 Test Item Value Reference Range Interpretation Comments Creatinine Lvl (test code = Creatinine 0.60 0.50-1.40 Lvl) [facility] [place]2016-01-21 13:03:00 Test Item Value Reference Range Interpretation Comments Glucose Lvl (test code = Glucose Lvl) 82 70-99 [facility] [place]2016-01-21 13:03:00 Test Item Value Reference Range Interpretation Comments BUN (test code = BUN) 7 7-22 [facility] [place]2016-01-21 13:03:00 Test Item Value Reference Range Interpretation Comments Potassium Lvl (test code = Potassium 4.1 3.5-5.1 Lvl) [facility] [place]2016-01-21 13:03:00 Test Item Value Reference Range Interpretation Comments Sodium Lvl (test code = Sodium Lvl) 141 135-145 [facility] [place]2016-01-21 13:03:00 Test Item Value Reference Range Interpretation Comments Chloride Lvl (test code = Chloride Lvl) 108 95-109 [facility] [place]2016-01-21 13:03:00 Test Item Value Reference Range Interpretation Comments CO2 (test code = CO2) 20 24-32 [facility] [place]2016-01-21 13:03:00 Test Item Value Reference Range Interpretation Comments Calcium Lvl (test code = Calcium Lvl) 8.9 8.5-10.5 [facility] [place]2016-01-21 13:03:00 Test Item Value Reference Range Interpretation Comments AGAP (test code = AGAP) 17.1 10.0-20.0 [facility]JwqyjxvTSRJPULHYL4069-38-05 13:03:00 Test Item Value Reference Range Interpretation Comments Lymphocytes # (test code = Lymphocytes 2.3 1.0-5.5 #) [facility] HeightsQgjbsdnHXIKVWGRZU8592-21-23 13:03:00 Test Item Value Reference Range Interpretation Comments Basophils (test code = 1.0 See_Comment [Aut omated message] The Basophils) system which ge nerated this result tra nsmitted reference range : <=1.0. The reference r kat was not used to int erpret this result as normal/abnormal . [facility] HeightsLoakjnvHWWZUECPCA5163-30-75 13:03:00 Test Item Value Reference Range Interpretation Comments Segs-Bands # (test code = Segs-Bands #) 3.3 1.5-8.1 [facility] HeightsThtpjhcPNVIWMDDDT2098-85-86 13:03:00 Test Item Value Reference Range Interpretation Comments Eosinophils (test code = 2.5 See_Comment [A utomated message] The Eosinophils) system which ge nerated this result tra nsmitted reference range : <=4.0. The reference r kat was not used to int erpret this result as normal/abnormal . [facility] HeightsDscimplFOBJJETUPH7522-51-97 13:03:00 Test Item Value Reference Range Interpretation Comments Eosinophils # (test code 0.2 See_Comment [A utomated message] The = Eosinophils #) system whic h generated this result tra nsmitted reference range : <=0.5. The reference r kat was not used to int erpret this result as normal/abnormal . [facility] HeightsNfpuaziUSSEKOTOXN3009-49-46 13:03:00 Test Item Value Reference Range Interpretation Comments Monocytes # (test code 0.7 See_Comment [Aut omated message] The = Monocytes #) system which generated this result tra nsmitted reference range : <=0.8. The reference r kat was not used to int erpret this result as normal/abnormal . [facility] HeightsLxdadiePXMXNHPIMU5365-37-76 13:03:00 Test Item Value Reference Range Interpretation Comments Microcyte (test code = 1+ *ABN*(09/19/15 Microcyte) 7:03 AM) [facility] HeightsVkdcthmOGTHNOBKLL7763-70-40 13:03:00 Test Item Value Reference Range Interpretation Comments Basophils # (test code 0.1 See_Comment [Aut omated message] The = Basophils #) system which generated this result tra nsmitted reference range : <=0.2. The reference r kat was not used to int erpret this result as normal/abnormal . [facility] HeightsWwvkpzpSPQEHYLSCG4859-22-99 13:03:00 Test Item Value Reference Range Interpretation Comments Monocytes (test code = Monocytes) 10.4 2.0-12.0 [facility] HeightsElftljnHGRXOUTSJY8323-89-59 13:03:00 Test Item Value Reference Range Interpretation Comments Lymphocytes (test code = Lymphocytes) 35.3 20.0-40.0 [facility] HeightsQmeezhfOUECCWGOGZ7936-00-26 13:03:00 Test Item Value Reference Range Interpretation Comments Segs (test code = Segs) 50.8 45.0-75.0 [facility] HeightsCmbgfilZHLLSDUKEO1718-61-20 13:03:00 Test Item Value Reference Range Interpretation Comments MCHC (test code = MCHC) 30.5 32.0-36.0 [facility] HeightsDmssoeeSTMAZPRZIH8809-71-08 13:03:00 Test Item Value Reference Range Interpretation Comments Platelet (test code = Platelet) 175 133-450 [facility] HeightsGqluzyuGHHPTPEUPC9644-54-15 13:03:00 Test Item Value Reference Range Interpretation Comments RDW (test code = RDW) 17.1 11.5-14.5 [facility] HeightsWdckipaZUWUZTPJGR9046-21-24 13:03:00 Test Item Value Reference Range Interpretation Comments MCV (test code = MCV) 78.4 80.0-98.0 [facility] HeightsBfvzsewVOBAIRFESN6768-64-92 13:03:00 Test Item Value Reference Range Interpretation Comments MCH (test code = MCH) 24.0 pg 27.0-31.0 [facility] HeightsXdojxwlZNYODLCHDR3167-28-95 13:03:00 Test Item Value Reference Range Interpretation Comments RBC (test code = RBC) 5.15 4.20-5.40 [facility] HeightsAzqmwgbOCEPJWDBYC8696-86-98 13:03:00 Test Item Value Reference Range Interpretation Comments Hct (test code = Hct) 40.4 36.0-48.0 [facility] HeightsFkqegmpMTTWRRLKNF9193-68-67 13:03:00 Test Item Value Reference Range Interpretation Comments WBC (test code = WBC) 6.5 3.7-10.4 [facility] HeightsPdkzziyQSZLVBKANI0481-89-95 13:03:00 Test Item Value Reference Range Interpretation Comments MPV (test code = MPV) 10.2 7.4-10.4 [facility] HeightsJbltrefQIAQWYUZOR3729-60-01 13:03:00 Test Item Value Reference Range Interpretation Comments Hgb (test code = Hgb) 12.3 12.0-16.0 [facility] [place]2016-01-21 13:03:00 Test Item Value Reference Range Interpretation Comments Magnesium Lvl (test code = Magnesium 1.9 1.8-2.4 Lvl) [facility] [place]2016-01-21 13:03:00 Test Item Value Reference Range Interpretation Comments eGFR (test code = eGFR) 127 [facility] [place]2016-01-21 13:03:00 Test Item Value Reference Range Interpretation Comments Creatinine Lvl (test code = Creatinine 0.60 0.50-1.40 Lvl) [facility] [place]2016-01-21 13:03:00 Test Item Value Reference Range Interpretation Comments Glucose Lvl (test code = Glucose Lvl) 82 70-99 [facility] [place]2016-01-21 13:03:00 Test Item Value Reference Range Interpretation Comments BUN (test code = BUN) 7 7-22 [facility] [place]2016-01-21 13:03:00 Test Item Value Reference Range Interpretation Comments Potassium Lvl (test code = Potassium 4.1 3.5-5.1 Lvl) [facility] [place]2016-01-21 13:03:00 Test Item Value Reference Range Interpretation Comments Sodium Lvl (test code = Sodium Lvl) 141 135-145 [facility] [place]2016-01-21 13:03:00 Test Item Value Reference Range Interpretation Comments Chloride Lvl (test code = Chloride Lvl) 108 95-109 [facility] [place]2016-01-21 13:03:00 Test Item Value Reference Range Interpretation Comments CO2 (test code = CO2) 20 24-32 [facility] [place]2016-01-21 13:03:00 Test Item Value Reference Range Interpretation Comments Calcium Lvl (test code = Calcium Lvl) 8.9 8.5-10.5 [facility] [place]2016-01-21 13:03:00 Test Item Value Reference Range Interpretation Comments AGAP (test code = AGAP) 17.1 10.0-20.0 [facility] HeightsMwkoufsPOCSBTZVMD2900-28-59 13:03:00 Test Item Value Reference Range Interpretation Comments Lymphocytes # (test code = Lymphocytes 2.3 1.0-5.5 #) [facility] HeightsEekwrlkVXBRQSKYGB6633-91-81 13:03:00 Test Item Value Reference Range Interpretation Comments Basophils (test code = 1.0 See_Comment [Aut omated message] The Basophils) system which ge nerated this result tra nsmitted reference range : <=1.0. The reference r kat was not used to int erpret this result as normal/abnormal . [facility] HeightsUwvcsaxVYDFBDJCBU2587-87-36 13:03:00 Test Item Value Reference Range Interpretation Comments Segs-Bands # (test code = Segs-Bands #) 3.3 1.5-8.1 [facility] HeightsMhjsyyqNPBHFBKSCL4057-61-52 13:03:00 Test Item Value Reference Range Interpretation Comments Eosinophils (test code = 2.5 See_Comment [A utomated message] The Eosinophils) system which ge nerated this result tra nsmitted reference range : <=4.0. The reference r kat was not used to int erpret this result as normal/abnormal . [facility] HeightsDykskysOWHTDCJEUW3417-36-97 13:03:00 Test Item Value Reference Range Interpretation Comments Eosinophils # (test code 0.2 See_Comment [A utomated message] The = Eosinophils #) system whic h generated this result tra nsmitted reference range : <=0.5. The reference r kat was not used to int erpret this result as normal/abnormal . [facility] HeightsZflygstRVBFGKPBZB8984-08-07 13:03:00 Test Item Value Reference Range Interpretation Comments Monocytes # (test code 0.7 See_Comment [Aut omated message] The = Monocytes #) system which generated this result tra nsmitted reference range : <=0.8. The reference r kat was not used to int erpret this result as normal/abnormal . [facility] HeightsQixdeeoLIKLYMCWHP5640-65-34 13:03:00 Test Item Value Reference Range Interpretation Comments Microcyte (test code = 1+ *ABN*(09/19/15 Microcyte) 7:03 AM) [facility] HeightsMjyxnhlTXLGAAAIJP7022-50-88 13:03:00 Test Item Value Reference Range Interpretation Comments Basophils # (test code 0.1 See_Comment [Aut omated message] The = Basophils #) system which generated this result tra nsmitted reference range : <=0.2. The reference r kat was not used to int erpret this result as normal/abnormal . [facility] HeightsUxfxfgxUBODLMEUOB5269-13-30 13:03:00 Test Item Value Reference Range Interpretation Comments Monocytes (test code = Monocytes) 10.4 2.0-12.0 [facility] HeightsLafdqkeLXXIFDUUMR1822-58-18 13:03:00 Test Item Value Reference Range Interpretation Comments Lymphocytes (test code = Lymphocytes) 35.3 20.0-40.0 [facility] HeightsYgkulovEDSHOBPXQZ7710-68-74 13:03:00 Test Item Value Reference Range Interpretation Comments Segs (test code = Segs) 50.8 45.0-75.0 [facility] HeightsLxlmtyoMSUMUKMRWX8594-16-79 13:03:00 Test Item Value Reference Range Interpretation Comments MCHC (test code = MCHC) 30.5 32.0-36.0 [facility] HeightsPxuzgllAESIBQUACT2256-52-05 13:03:00 Test Item Value Reference Range Interpretation Comments Platelet (test code = Platelet) 175 133-450 [facility] HeightsQiwtxqqWWDANQYQAE3074-22-35 13:03:00 Test Item Value Reference Range Interpretation Comments RDW (test code = RDW) 17.1 11.5-14.5 [facility] HeightsJkaeeaxEMJPSXQHDA3890-46-42 13:03:00 Test Item Value Reference Range Interpretation Comments MCV (test code = MCV) 78.4 80.0-98.0 [facility] HeightsNuwujtcJXXMGHMHPU1061-10-59 13:03:00 Test Item Value Reference Range Interpretation Comments MCH (test code = MCH) 24.0 pg 27.0-31.0 [facility] HeightsOqwcznhRUNZWREJRR6328-97-49 13:03:00 Test Item Value Reference Range Interpretation Comments RBC (test code = RBC) 5.15 4.20-5.40 [facility] HeightsFqgypfjRKTYRHZDMI5979-67-80 13:03:00 Test Item Value Reference Range Interpretation Comments Hct (test code = Hct) 40.4 36.0-48.0 [facility] HeightsFbhyxxrBSRWVUWIEY8746-59-35 13:03:00 Test Item Value Reference Range Interpretation Comments WBC (test code = WBC) 6.5 3.7-10.4 [facility] HeightsRlglyuaAFXYQMPMMY0107-94-12 13:03:00 Test Item Value Reference Range Interpretation Comments MPV (test code = MPV) 10.2 7.4-10.4 [facility] HeightsZgwriyvRPQKRQCSSV9441-84-10 13:03:00 Test Item Value Reference Range Interpretation Comments Hgb (test code = Hgb) 12.3 12.0-16.0 [facility] [place]2016-01-21 13:03:00 Test Item Value Reference Range Interpretation Comments Magnesium Lvl (test code = Magnesium 1.9 1.8-2.4 Lvl) [facility] [place]2016-01-21 13:03:00 Test Item Value Reference Range Interpretation Comments eGFR (test code = eGFR) 127 [facility] [place]2016-01-21 13:03:00 Test Item Value Reference Range Interpretation Comments Creatinine Lvl (test code = Creatinine 0.60 0.50-1.40 Lvl) [facility] [place]2016-01-21 13:03:00 Test Item Value Reference Range Interpretation Comments Glucose Lvl (test code = Glucose Lvl) 82 70-99 [facility] [place]2016-01-21 13:03:00 Test Item Value Reference Range Interpretation Comments BUN (test code = BUN) 7 7-22 [facility] [place]2016-01-21 13:03:00 Test Item Value Reference Range Interpretation Comments Potassium Lvl (test code = Potassium 4.1 3.5-5.1 Lvl) [facility] [place]2016-01-21 13:03:00 Test Item Value Reference Range Interpretation Comments Sodium Lvl (test code = Sodium Lvl) 141 135-145 [facility] [place]2016-01-21 13:03:00 Test Item Value Reference Range Interpretation Comments Chloride Lvl (test code = Chloride Lvl) 108 95-109 [facility] [place]2016-01-21 13:03:00 Test Item Value Reference Range Interpretation Comments CO2 (test code = CO2) 20 24-32 [facility] [place]2016-01-21 13:03:00 Test Item Value Reference Range Interpretation Comments Calcium Lvl (test code = Calcium Lvl) 8.9 8.5-10.5 [facility] [place]2016-01-21 13:03:00 Test Item Value Reference Range Interpretation Comments AGAP (test code = AGAP) 17.1 10.0-20.0 [facility] HeightsRdaqfhkVSQWFPIIBD9741-96-28 13:03:00 Test Item Value Reference Range Interpretation Comments Lymphocytes # (test code = Lymphocytes 2.3 1.0-5.5 #) [facility] HeightsFfprayhXLNRDCTNLO5093-49-57 13:03:00 Test Item Value Reference Range Interpretation Comments Basophils (test code = 1.0 See_Comment [Aut omated message] The Basophils) system which ge nerated this result tra nsmitted reference range : <=1.0. The reference r kat was not used to int erpret this result as normal/abnormal . [facility] HeightsBocwowdPUMIFTYQXV1727-91-99 13:03:00 Test Item Value Reference Range Interpretation Comments Segs-Bands # (test code = Segs-Bands #) 3.3 1.5-8.1 [facility] HeightsJzjbzklQFPTWULPQU8354-87-06 13:03:00 Test Item Value Reference Range Interpretation Comments Eosinophils (test code = 2.5 See_Comment [A utomated message] The Eosinophils) system which ge nerated this result tra nsmitted reference range : <=4.0. The reference r kat was not used to int erpret this result as normal/abnormal . [facility] HeightsElrckfkNNTEVSHEDG2302-81-46 13:03:00 Test Item Value Reference Range Interpretation Comments Eosinophils # (test code 0.2 See_Comment [A utomated message] The = Eosinophils #) system whic h generated this result tra nsmitted reference range : <=0.5. The reference r kat was not used to int erpret this result as normal/abnormal . [facility] HeightsBuwbjyeYEGTKZISPT3098-55-14 13:03:00 Test Item Value Reference Range Interpretation Comments Monocytes # (test code 0.7 See_Comment [Aut omated message] The = Monocytes #) system which generated this result tra nsmitted reference range : <=0.8. The reference r kat was not used to int erpret this result as normal/abnormal . [facility] HeightsEhvxyoaHTWYTPKRFQ4727-66-16 13:03:00 Test Item Value Reference Range Interpretation Comments Microcyte (test code = 1+ *ABN*(09/19/15 Microcyte) 7:03 AM) [facility] HeightsHpxhbdmBUUKGNNXAW4713-46-46 13:03:00 Test Item Value Reference Range Interpretation Comments Basophils # (test code 0.1 See_Comment [Aut omated message] The = Basophils #) system which generated this result tra nsmitted reference range : <=0.2. The reference r kat was not used to int erpret this result as normal/abnormal . [facility] HeightsOtpiaabUONJMJSFBH8721-13-65 13:03:00 Test Item Value Reference Range Interpretation Comments Monocytes (test code = Monocytes) 10.4 2.0-12.0 [facility] HeightsUfwvtxfNXJKPCQFOV3559-66-04 13:03:00 Test Item Value Reference Range Interpretation Comments Lymphocytes (test code = Lymphocytes) 35.3 20.0-40.0 [facility] HeightsMaxnzouWMAXTSTMRX9890-11-30 13:03:00 Test Item Value Reference Range Interpretation Comments Segs (test code = Segs) 50.8 45.0-75.0 [facility] HeightsMgnnnkyUFXONOWNUX6082-22-18 13:03:00 Test Item Value Reference Range Interpretation Comments MCHC (test code = MCHC) 30.5 32.0-36.0 [facility] HeightsUaiirfxAJCRMXSZFV2522-13-73 13:03:00 Test Item Value Reference Range Interpretation Comments Platelet (test code = Platelet) 175 133-450 [facility] HeightsSvsswsuQOCSDIBVSS4214-03-23 13:03:00 Test Item Value Reference Range Interpretation Comments RDW (test code = RDW) 17.1 11.5-14.5 [facility] HeightsQtzfslgDJVQSZXHGL9557-32-15 13:03:00 Test Item Value Reference Range Interpretation Comments MCV (test code = MCV) 78.4 80.0-98.0 [facility] HeightsGsonwykCKQAMUTGNI1675-95-13 13:03:00 Test Item Value Reference Range Interpretation Comments MCH (test code = MCH) 24.0 pg 27.0-31.0 [facility] HeightsTwhzzblDZAQWWNYNQ1666-59-50 13:03:00 Test Item Value Reference Range Interpretation Comments RBC (test code = RBC) 5.15 4.20-5.40 [facility] HeightsDoefuquXAULBVVUDJ4733-02-98 13:03:00 Test Item Value Reference Range Interpretation Comments Hct (test code = Hct) 40.4 36.0-48.0 [facility] HeightsTjypfxdTKIYNJZRHI1541-61-61 13:03:00 Test Item Value Reference Range Interpretation Comments WBC (test code = WBC) 6.5 3.7-10.4 [facility] HeightsWeqzxfrEVBUDDJLTV4315-03-46 13:03:00 Test Item Value Reference Range Interpretation Comments MPV (test code = MPV) 10.2 7.4-10.4 [facility] HeightsXnlwvswVFYQNJMFNY4815-55-69 13:03:00 Test Item Value Reference Range Interpretation Comments Hgb (test code = Hgb) 12.3 12.0-16.0 [facility] [place]2016-01-21 13:03:00 Test Item Value Reference Range Interpretation Comments Magnesium Lvl (test code = Magnesium 1.9 1.8-2.4 Lvl) [facility] [place]2016-01-21 13:03:00 Test Item Value Reference Range Interpretation Comments eGFR (test code = eGFR) 127 [facility] [place]2016-01-21 13:03:00 Test Item Value Reference Range Interpretation Comments Creatinine Lvl (test code = Creatinine 0.60 0.50-1.40 Lvl) [facility] [place]2016-01-21 13:03:00 Test Item Value Reference Range Interpretation Comments Glucose Lvl (test code = Glucose Lvl) 82 70-99 [facility] [place]2016-01-21 13:03:00 Test Item Value Reference Range Interpretation Comments BUN (test code = BUN) 7 7-22 [facility] [place]2016-01-21 13:03:00 Test Item Value Reference Range Interpretation Comments Potassium Lvl (test code = Potassium 4.1 3.5-5.1 Lvl) [facility] [place]2016-01-21 13:03:00 Test Item Value Reference Range Interpretation Comments Sodium Lvl (test code = Sodium Lvl) 141 135-145 [facility] [place]2016-01-21 13:03:00 Test Item Value Reference Range Interpretation Comments Chloride Lvl (test code = Chloride Lvl) 108 95-109 [facility] [place]2016-01-21 13:03:00 Test Item Value Reference Range Interpretation Comments CO2 (test code = CO2) 20 24-32 [facility] [place]2016-01-21 13:03:00 Test Item Value Reference Range Interpretation Comments Calcium Lvl (test code = Calcium Lvl) 8.9 8.5-10.5 [facility] [place]2016-01-21 13:03:00 Test Item Value Reference Range Interpretation Comments AGAP (test code = AGAP) 17.1 10.0-20.0 [facility] HeightsGwtxryqHBDXXSJLBV4681-93-57 13:03:00 Test Item Value Reference Range Interpretation Comments Lymphocytes # (test code = Lymphocytes 2.3 1.0-5.5 #) [facility] HeightsWjvigygSODHYXFSAO4339-03-78 13:03:00 Test Item Value Reference Range Interpretation Comments Basophils (test code = 1.0 See_Comment [Aut omated message] The Basophils) system which ge nerated this result tra nsmitted reference range : <=1.0. The reference r kat was not used to int erpret this result as normal/abnormal . [facility] HeightsYstqtlmHZSPZKYFYW2686-61-94 13:03:00 Test Item Value Reference Range Interpretation Comments Segs-Bands # (test code = Segs-Bands #) 3.3 1.5-8.1 [facility] HeightsEpdpopmGWKSXZUZMJ8032-65-32 13:03:00 Test Item Value Reference Range Interpretation Comments Eosinophils (test code = 2.5 See_Comment [A utomated message] The Eosinophils) system which ge nerated this result tra nsmitted reference range : <=4.0. The reference r kat was not used to int erpret this result as normal/abnormal . [facility] HeightsFapmuxhVTKFLEKGZO8750-69-46 13:03:00 Test Item Value Reference Range Interpretation Comments Eosinophils # (test code 0.2 See_Comment [A utomated message] The = Eosinophils #) system whic h generated this result tra nsmitted reference range : <=0.5. The reference r kat was not used to int erpret this result as normal/abnormal . [facility] HeightsHauivjsRLPIMPSPIU9430-10-77 13:03:00 Test Item Value Reference Range Interpretation Comments Monocytes # (test code 0.7 See_Comment [Aut omated message] The = Monocytes #) system which generated this result tra nsmitted reference range : <=0.8. The reference r kat was not used to int erpret this result as normal/abnormal . [facility] HeightsBmvypcjWEVFWYLPKL9418-62-74 13:03:00 Test Item Value Reference Range Interpretation Comments Microcyte (test code = 1+ *ABN*(09/19/15 Microcyte) 7:03 AM) [facility] HeightsDkekfodCOCLHXSUGH4407-39-75 13:03:00 Test Item Value Reference Range Interpretation Comments Basophils # (test code 0.1 See_Comment [Aut omated message] The = Basophils #) system which generated this result tra nsmitted reference range : <=0.2. The reference r kat was not used to int erpret this result as normal/abnormal . [facility] HeightsUbuwseaUBPBQDUEUR8006-90-43 13:03:00 Test Item Value Reference Range Interpretation Comments Monocytes (test code = Monocytes) 10.4 2.0-12.0 [facility] HeightsInlipczJJDIZWVRMP0013-73-61 13:03:00 Test Item Value Reference Range Interpretation Comments Lymphocytes (test code = Lymphocytes) 35.3 20.0-40.0 [facility] HeightsQqhjjkvQLLZIMKIRE9172-39-23 13:03:00 Test Item Value Reference Range Interpretation Comments Segs (test code = Segs) 50.8 45.0-75.0 [facility] HeightsUxjbssoRMGSFVGXZQ7714-76-82 13:03:00 Test Item Value Reference Range Interpretation Comments MCHC (test code = MCHC) 30.5 32.0-36.0 [facility] HeightsLgywiszIBEYECJDEE2530-91-45 13:03:00 Test Item Value Reference Range Interpretation Comments Platelet (test code = Platelet) 175 133-450 [facility] HeightsCsjodnlJLJKJFQLKP6358-11-74 13:03:00 Test Item Value Reference Range Interpretation Comments RDW (test code = RDW) 17.1 11.5-14.5 [facility] HeightsJiovhhkRAATMOQJXO9232-27-45 13:03:00 Test Item Value Reference Range Interpretation Comments MCV (test code = MCV) 78.4 80.0-98.0 [facility] HeightsWtsybxhLTEGZKRWKE1755-13-49 13:03:00 Test Item Value Reference Range Interpretation Comments MCH (test code = MCH) 24.0 pg 27.0-31.0 [facility] HeightsBdtrbaiYZIGESYAYT3782-21-43 13:03:00 Test Item Value Reference Range Interpretation Comments RBC (test code = RBC) 5.15 4.20-5.40 [facility] HeightsWmfgoubPCESOUBZCF3360-51-81 13:03:00 Test Item Value Reference Range Interpretation Comments Hct (test code = Hct) 40.4 36.0-48.0 [facility] HeightsYrwllfdSTJCKGQIZL1026-93-56 13:03:00 Test Item Value Reference Range Interpretation Comments WBC (test code = WBC) 6.5 3.7-10.4 [facility] HeightsYxpxsdjYZFZMKGPSG5523-18-34 13:03:00 Test Item Value Reference Range Interpretation Comments MPV (test code = MPV) 10.2 7.4-10.4 [facility] HeightsOodpjtnYYYHUYAEPF9465-21-33 13:03:00 Test Item Value Reference Range Interpretation Comments Hgb (test code = Hgb) 12.3 12.0-16.0 [facility]2016-01-21 13:03:00 Test Item Value Reference Range Interpretation Comments Magnesium Lvl (test code = Magnesium 1.9 1.8-2.4 Lvl) [facility]2016-01-21 13:03:00 Test Item Value Reference Range Interpretation Comments eGFR (test code = eGFR) 127 [facility]2016-01-21 13:03:00 Test Item Value Reference Range Interpretation Comments Creatinine Lvl (test code = Creatinine 0.60 0.50-1.40 Lvl) [facility]2016-01-21 13:03:00 Test Item Value Reference Range Interpretation Comments Glucose Lvl (test code = Glucose Lvl) 82 70-99 [facility]2016-01-21 13:03:00 Test Item Value Reference Range Interpretation Comments BUN (test code = BUN) 7 7-22 [facility]2016-01-21 13:03:00 Test Item Value Reference Range Interpretation Comments Potassium Lvl (test code = Potassium 4.1 3.5-5.1 Lvl) [facility]2016-01-21 13:03:00 Test Item Value Reference Range Interpretation Comments Sodium Lvl (test code = Sodium Lvl) 141 135-145 [facility]2016-01-21 13:03:00 Test Item Value Reference Range Interpretation Comments Chloride Lvl (test code = Chloride Lvl) 108 95-109 [facility]2016-01-21 13:03:00 Test Item Value Reference Range Interpretation Comments CO2 (test code = CO2) 20 24-32 [facility]2016-01-21 13:03:00 Test Item Value Reference Range Interpretation Comments Calcium Lvl (test code = Calcium Lvl) 8.9 8.5-10.5 [facility]2016-01-21 13:03:00 Test Item Value Reference Range Interpretation Comments AGAP (test code = AGAP) 17.1 10.0-20.0 [facility] HeightsVvpelnaGAOOBOCTQJ2572-04-06 13:03:00 Test Item Value Reference Range Interpretation Comments Lymphocytes # (test code = Lymphocytes 2.3 1.0-5.5 #) [facility] HeightsKjwtwryRZXONHMTOZ4555-33-79 13:03:00 Test Item Value Reference Range Interpretation Comments Basophils (test code = 1.0 See_Comment [Aut omated message] The Basophils) system which ge nerated this result tra nsmitted reference range : <=1.0. The reference r kat was not used to int erpret this result as normal/abnormal . [facility] HeightsMogsjewHWAWYSLNSE4938-66-29 13:03:00 Test Item Value Reference Range Interpretation Comments Segs-Bands # (test code = Segs-Bands #) 3.3 1.5-8.1 [facility] HeightsGhiaqflDMZIKQZWJS0369-07-23 13:03:00 Test Item Value Reference Range Interpretation Comments Eosinophils (test code = 2.5 See_Comment [A utomated message] The Eosinophils) system which ge nerated this result tra nsmitted reference range : <=4.0. The reference r kat was not used to int erpret this result as normal/abnormal . [facility] HeightsVyqwxtjKGJJTAGGTP9932-91-80 13:03:00 Test Item Value Reference Range Interpretation Comments Eosinophils # (test code 0.2 See_Comment [A utomated message] The = Eosinophils #) system [facility] h generated this result tra nsmitted reference range : <=0.5. The reference r kat was not used to int erpret this result as normal/abnormal . [facility] HeightsKspgrduCOLMFAJAFE0962-40-48 13:03:00 Test Item Value Reference Range Interpretation Comments Monocytes # (test code 0.7 See_Comment [Aut omated message] The = Monocytes #) system which generated this result tra nsmitted reference range : <=0.8. The reference r kat was not used to int erpret this result as normal/abnormal . [facility] HeightsUcryumxXWHWXAVEHB6298-23-85 13:03:00 Test Item Value Reference Range Interpretation Comments Microcyte (test code = 1+ *ABN*(09/19/15 Microcyte) 7:03 AM) [facility] HeightsLqbqajdOUFUMFBAQM7182-48-18 13:03:00 Test Item Value Reference Range Interpretation Comments Basophils # (test code 0.1 See_Comment [Aut omated message] The = Basophils #) system which generated this result tra nsmitted reference range : <=0.2. The reference r kat was not used to int erpret this result as normal/abnormal . [facility] HeightsSublomtKRUVUBQAOH7403-55-26 13:03:00 Test Item Value Reference Range Interpretation Comments Monocytes (test code = Monocytes) 10.4 2.0-12.0 [facility] HeightsSdvmndiMWYXCODVTB3324-35-69 13:03:00 Test Item Value Reference Range Interpretation Comments Lymphocytes (test code = Lymphocytes) 35.3 20.0-40.0 [facility] HeightsXlweuawHUGSFZWEDT9435-84-95 13:03:00 Test Item Value Reference Range Interpretation Comments Segs (test code = Segs) 50.8 45.0-75.0 [facility] HeightsSdgeesuXCDMIZFCYU1075-18-96 13:03:00 Test Item Value Reference Range Interpretation Comments MCHC (test code = MCHC) 30.5 32.0-36.0 [facility] HeightsXalrojyPXZFLDWZSD6242-43-77 13:03:00 Test Item Value Reference Range Interpretation Comments Platelet (test code = Platelet) 175 133-450 [facility] HeightsUgtsowhDZTZZIUYDQ0803-51-44 13:03:00 Test Item Value Reference Range Interpretation Comments RDW (test code = RDW) 17.1 11.5-14.5 [facility] HeightsXkbizhaCLMSHSSUBL0649-97-42 13:03:00 Test Item Value Reference Range Interpretation Comments MCV (test code = MCV) 78.4 80.0-98.0 [facility] HeightsXdluejkLHTAIRINVI9581-05-17 13:03:00 Test Item Value Reference Range Interpretation Comments MCH (test code = MCH) 24.0 pg 27.0-31.0 [facility] HeightsWkhoyvhVJCEGRUKHF8252-04-41 13:03:00 Test Item Value Reference Range Interpretation Comments RBC (test code = RBC) 5.15 4.20-5.40 [facility] HeightsKlhxgpyJKEVRSUKVQ3470-73-54 13:03:00 Test Item Value Reference Range Interpretation Comments Hct (test code = Hct) 40.4 36.0-48.0 [facility] HeightsWldhuaeQUEIBOKIIS8579-50-27 13:03:00 Test Item Value Reference Range Interpretation Comments WBC (test code = WBC) 6.5 3.7-10.4 [facility] HeightsSyvplqcQTLPWSVNTV9321-18-25 13:03:00 Test Item Value Reference Range Interpretation Comments MPV (test code = MPV) 10.2 7.4-10.4 [facility] HeightsDgcgjwpNAWZQMZASW7750-75-53 13:03:00 Test Item Value Reference Range Interpretation Comments Hgb (test code = Hgb) 12.3 12.0-16.0 [facility]2016-01-21 13:03:00 Test Item Value Reference Range Interpretation Comments Magnesium Lvl (test code = Magnesium 1.9 1.8-2.4 Lvl) [facility]2016-01-21 13:03:00 Test Item Value Reference Range Interpretation Comments eGFR (test code = eGFR) 127 [facility]2016-01-21 13:03:00 Test Item Value Reference Range Interpretation Comments Creatinine Lvl (test code = Creatinine 0.60 0.50-1.40 Lvl) [facility]2016-01-21 13:03:00 Test Item Value Reference Range Interpretation Comments Glucose Lvl (test code = Glucose Lvl) 82 70-99 [facility]2016-01-21 13:03:00 Test Item Value Reference Range Interpretation Comments BUN (test code = BUN) 7 7-22 [facility]2016-01-21 13:03:00 Test Item Value Reference Range Interpretation Comments Potassium Lvl (test code = Potassium 4.1 3.5-5.1 Lvl) [facility]2016-01-21 13:03:00 Test Item Value Reference Range Interpretation Comments Sodium Lvl (test code = Sodium Lvl) 141 135-145 [facility]2016-01-21 13:03:00 Test Item Value Reference Range Interpretation Comments Chloride Lvl (test code = Chloride Lvl) 108 95-109 [facility]2016-01-21 13:03:00 Test Item Value Reference Range Interpretation Comments CO2 (test code = CO2) 20 24-32 [facility]2016-01-21 13:03:00 Test Item Value Reference Range Interpretation Comments Calcium Lvl (test code = Calcium Lvl) 8.9 8.5-10.5 [facility]2016-01-21 13:03:00 Test Item Value Reference Range Interpretation Comments AGAP (test code = AGAP) 17.1 10.0-20.0 [facility] HeightsGsedgcbPCQIAXDEFR9774-80-58 13:03:00 Test Item Value Reference Range Interpretation Comments Lymphocytes # (test code = Lymphocytes 2.3 1.0-5.5 #) [facility] HeightsDvfyrdpXBXGVXVKBE4394-39-76 13:03:00 Test Item Value Reference Range Interpretation Comments Basophils (test code = 1.0 See_Comment [Aut omated message] The Basophils) system which ge nerated this result tra nsmitted reference range : <=1.0. The reference r kat was not used to int erpret this result as normal/abnormal . [facility] HeightsNxxagtkICWPHYVAFI0803-49-99 13:03:00 Test Item Value Reference Range Interpretation Comments Segs-Bands # (test code = Segs-Bands #) 3.3 1.5-8.1 [facility] HeightsIkfhaitTLYVNTTUOQ6059-61-28 13:03:00 Test Item Value Reference Range Interpretation Comments Eosinophils (test code = 2.5 See_Comment [A utomated message] The Eosinophils) system which ge nerated this result tra nsmitted reference range : <=4.0. The reference r kat was not used to int erpret this result as normal/abnormal . [facility] HeightsYdngzqnIMQMABWUDX8920-54-50 13:03:00 Test Item Value Reference Range Interpretation Comments Eosinophils # (test code 0.2 See_Comment [A utomated message] The = Eosinophils #) system whic h generated this result tra nsmitted reference range : <=0.5. The reference r kat was not used to int erpret this result as normal/abnormal . [facility] HeightsXqlfnwhFYBJIRKQFY6514-13-71 13:03:00 Test Item Value Reference Range Interpretation Comments Monocytes # (test code 0.7 See_Comment [Aut omated message] The = Monocytes #) system which generated this result tra nsmitted reference range : <=0.8. The reference r kat was not used to int erpret this result as normal/abnormal . [facility] HeightsHudfyzqDXVMZSVQTI7101-73-32 13:03:00 Test Item Value Reference Range Interpretation Comments Microcyte (test code = 1+ *ABN*(09/19/15 Microcyte) 7:03 AM) [facility] HeightsZbrimirLDKIMMEXSO5978-20-75 13:03:00 Test Item Value Reference Range Interpretation Comments Basophils # (test code 0.1 See_Comment [Aut omated message] The = Basophils #) system which generated this result tra nsmitted reference range : <=0.2. The reference r kat was not used to int erpret this result as normal/abnormal . [facility] HeightsXcmlhnvTXUUVHDWAB3382-02-48 13:03:00 Test Item Value Reference Range Interpretation Comments Monocytes (test code = Monocytes) 10.4 2.0-12.0 [facility] HeightsNvrzctcVSDGZQPHCQ0525-34-75 13:03:00 Test Item Value Reference Range Interpretation Comments Lymphocytes (test code = Lymphocytes) 35.3 20.0-40.0 [facility] HeightsWpgfbayYIDASXOEMN7681-62-00 13:03:00 Test Item Value Reference Range Interpretation Comments Segs (test code = Segs) 50.8 45.0-75.0 [facility] HeightsSbkkjxjYVUFBAZSAO7387-59-23 13:03:00 Test Item Value Reference Range Interpretation Comments MCHC (test code = MCHC) 30.5 32.0-36.0 [facility] HeightsMrotxtmUQFXLOEPRX4962-68-97 13:03:00 Test Item Value Reference Range Interpretation Comments Platelet (test code = Platelet) 175 133-450 [facility] HeightsAgxhsbxYJORTOBOHZ9982-02-82 13:03:00 Test Item Value Reference Range Interpretation Comments RDW (test code = RDW) 17.1 11.5-14.5 [facility] HeightsZygegwaSRBZQIXWGC6339-76-46 13:03:00 Test Item Value Reference Range Interpretation Comments MCV (test code = MCV) 78.4 80.0-98.0 [facility] HeightsItbzzczQBUDVASHST9073-72-53 13:03:00 Test Item Value Reference Range Interpretation Comments MCH (test code = MCH) 24.0 pg 27.0-31.0 [facility] HeightsPzaowovFNQKMADGRJ4003-76-07 13:03:00 Test Item Value Reference Range Interpretation Comments RBC (test code = RBC) 5.15 4.20-5.40 [facility] HeightsPpudomxCTHXWGVFFO6962-36-05 13:03:00 Test Item Value Reference Range Interpretation Comments Hct (test code = Hct) 40.4 36.0-48.0 [facility] HeightsArhkiufGLRTKWYIPS1668-48-04 13:03:00 Test Item Value Reference Range Interpretation Comments WBC (test code = WBC) 6.5 3.7-10.4 [facility] HeightsCetvfbkNLUSCSAOYJ1870-94-91 13:03:00 Test Item Value Reference Range Interpretation Comments MPV (test code = MPV) 10.2 7.4-10.4 [facility] HeightsWwwmbrsJTXWOZJOOD7182-29-75 13:03:00 Test Item Value Reference Range Interpretation Comments Hgb (test code = Hgb) 12.3 12.0-16.0 [facility]2016-01-21 13:03:00 Test Item Value Reference Range Interpretation Comments Magnesium Lvl (test code = Magnesium 1.9 1.8-2.4 Lvl) [facility]2016-01-21 13:03:00 Test Item Value Reference Range Interpretation Comments eGFR (test code = eGFR) 127 [facility]2016-01-21 13:03:00 Test Item Value Reference Range Interpretation Comments Creatinine Lvl (test code = Creatinine 0.60 0.50-1.40 Lvl) [facility]2016-01-21 13:03:00 Test Item Value Reference Range Interpretation Comments Glucose Lvl (test code = Glucose Lvl) 82 70-99 [facility]2016-01-21 13:03:00 Test Item Value Reference Range Interpretation Comments BUN (test code = BUN) 7 7-22 [facility]2016-01-21 13:03:00 Test Item Value Reference Range Interpretation Comments Potassium Lvl (test code = Potassium 4.1 3.5-5.1 Lvl) [facility]2016-01-21 13:03:00 Test Item Value Reference Range Interpretation Comments Sodium Lvl (test code = Sodium Lvl) 141 135-145 [facility]2016-01-21 13:03:00 Test Item Value Reference Range Interpretation Comments Chloride Lvl (test code = Chloride Lvl) 108 95-109 [facility]2016-01-21 13:03:00 Test Item Value Reference Range Interpretation Comments CO2 (test code = CO2) 20 24-32 [facility]2016-01-21 13:03:00 Test Item Value Reference Range Interpretation Comments Calcium Lvl (test code = Calcium Lvl) 8.9 8.5-10.5 [place] 372446-01-21 13:03:00 Test Item Value Reference Range Interpretation Comments AGAP (test code = AGAP) 17.1 10.0-20.0 [facility] HeightsYrqaeujDIOLJIWZDB3151-95-24 13:03:00 Test Item Value Reference Range Interpretation Comments Lymphocytes # (test code = Lymphocytes 2.3 1.0-5.5 #) [facility] HeightsMsgogpeSXILRTIGPD2610-18-76 13:03:00 Test Item Value Reference Range Interpretation Comments Basophils (test code = 1.0 See_Comment [Aut omated message] The Basophils) system which ge nerated this result tra nsmitted reference range : <=1.0. The reference r kat was not used to int erpret this result as normal/abnormal . [facility] HeightsAfsagnjKSTCBYLHLH5343-72-57 13:03:00 Test Item Value Reference Range Interpretation Comments Segs-Bands # (test code = Segs-Bands #) 3.3 1.5-8.1 [facility] HeightsQpddrmwGEDJJLDFCV0949-53-57 13:03:00 Test Item Value Reference Range Interpretation Comments Eosinophils (test code = 2.5 See_Comment [A utomated message] The Eosinophils) system which ge nerated this result tra nsmitted reference range : <=4.0. The reference r kat was not used to int erpret this result as normal/abnormal . [facility] HeightsUjajxlyPJEPPLMRSW7023-26-48 13:03:00 Test Item Value Reference Range Interpretation Comments Eosinophils # (test code 0.2 See_Comment [A utomated message] The = Eosinophils #) system whic h generated this result tra nsmitted reference range : <=0.5. The reference r kat was not used to int erpret this result as normal/abnormal . [facility] HeightsBenrnwsISVTYGRIFH8754-68-09 13:03:00 Test Item Value Reference Range Interpretation Comments Monocytes # (test code 0.7 See_Comment [Aut omated message] The = Monocytes #) system which generated this result tra nsmitted reference range : <=0.8. The reference r kat was not used to int erpret this result as normal/abnormal . [facility] HeightsRcxudjmPMWMBLVCBP5815-90-09 13:03:00 Test Item Value Reference Range Interpretation Comments Microcyte (test code = 1+ *ABN*(09/19/15 Microcyte) 7:03 AM) [facility] HeightsWllejbmXQWUCQGVOW6429-37-49 13:03:00 Test Item Value Reference Range Interpretation Comments Basophils # (test code 0.1 See_Comment [Aut omated message] The = Basophils #) system which generated this result tra nsmitted reference range : <=0.2. The reference r kat was not used to int erpret this result as normal/abnormal . [facility] HeightsCqfphskDEYYYMYFQA4902-26-22 13:03:00 Test Item Value Reference Range Interpretation Comments Monocytes (test code = Monocytes) 10.4 2.0-12.0 [facility] HeightsChbtxtsSNNPRIOJNK9110-71-57 13:03:00 Test Item Value Reference Range Interpretation Comments Lymphocytes (test code = Lymphocytes) 35.3 20.0-40.0 [facility] HeightsUjcnreuZAZQWSFZZZ3262-08-37 13:03:00 Test Item Value Reference Range Interpretation Comments Segs (test code = Segs) 50.8 45.0-75.0 [facility] HeightsGoyopevPJFGJDWNYX0307-36-02 13:03:00 Test Item Value Reference Range Interpretation Comments MCHC (test code = MCHC) 30.5 32.0-36.0 [facility] HeightsGofjqghUUAHWITKLP5083-34-16 13:03:00 Test Item Value Reference Range Interpretation Comments Platelet (test code = Platelet) 175 133-450 [facility] HeightsBqktzfwCIEWNOLKXR6900-32-61 13:03:00 Test Item Value Reference Range Interpretation Comments RDW (test code = RDW) 17.1 11.5-14.5 [facility] HeightsLulkknuHBDMARQFAK6907-04-78 13:03:00 Test Item Value Reference Range Interpretation Comments MCV (test code = MCV) 78.4 80.0-98.0 [facility] HeightsCklrisdZWOHYVMHZJ3669-39-41 13:03:00 Test Item Value Reference Range Interpretation Comments MCH (test code = MCH) 24.0 pg 27.0-31.0 [facility] HeightsRgulgujAVFZEATZJX0199-29-75 13:03:00 Test Item Value Reference Range Interpretation Comments RBC (test code = RBC) 5.15 4.20-5.40 [facility] HeightsMszjnacGYTKXITRAN9691-47-29 13:03:00 Test Item Value Reference Range Interpretation Comments Hct (test code = Hct) 40.4 36.0-48.0 [facility] HeightsPcvhilpBUPLDWVJYZ2877-05-33 13:03:00 Test Item Value Reference Range Interpretation Comments WBC (test code = WBC) 6.5 3.7-10.4 [facility] HeightsIqoijbwTLCNVZBKYV3307-08-60 13:03:00 Test Item Value Reference Range Interpretation Comments MPV (test code = MPV) 10.2 7.4-10.4 [facility] HeightsTepvbddSYGVOAYRUQ3046-66-40 13:03:00 Test Item Value Reference Range Interpretation Comments Hgb (test code = Hgb) 12.3 12.0-16.0 [facility]2016-01-21 13:03:00 Test Item Value Reference Range Interpretation Comments Magnesium Lvl (test code = Magnesium 1.9 1.8-2.4 Lvl) [facility]2016-01-21 13:03:00 Test Item Value Reference Range Interpretation Comments eGFR (test code = eGFR) 127 [facility]2016-01-21 13:03:00 Test Item Value Reference Range Interpretation Comments Creatinine Lvl (test code = Creatinine 0.60 0.50-1.40 Lvl) [facility]2016-01-21 13:03:00 Test Item Value Reference Range Interpretation Comments Glucose Lvl (test code = Glucose Lvl) 82 70-99 [facility]2016-01-21 13:03:00 Test Item Value Reference Range Interpretation Comments BUN (test code = BUN) 7 7-22 [facility]2016-01-21 13:03:00 Test Item Value Reference Range Interpretation Comments Potassium Lvl (test code = Potassium 4.1 3.5-5.1 Lvl) [facility]2016-01-21 13:03:00 Test Item Value Reference Range Interpretation Comments Sodium Lvl (test code = Sodium Lvl) 141 135-145 [facility]2016-01-21 13:03:00 Test Item Value Reference Range Interpretation Comments Chloride Lvl (test code = Chloride Lvl) 108 95-109 [facility]2016-01-21 13:03:00 Test Item Value Reference Range Interpretation Comments CO2 (test code = CO2) 20 24-32 [facility]2016-01-21 13:03:00 Test Item Value Reference Range Interpretation Comments Calcium Lvl (test code = Calcium Lvl) 8.9 8.5-10.5 [facility]2016-01-21 13:03:00 Test Item Value Reference Range Interpretation Comments AGAP (test code = AGAP) 17.1 10.0-20.0 [facility] HeightsGodpcmrUMRBULQEDO4100-43-43 13:03:00 Test Item Value Reference Range Interpretation Comments Lymphocytes # (test code = Lymphocytes 2.3 1.0-5.5 #) [facility] HeightsGdqsmbsPPWGNQUXCU7310-81-29 13:03:00 Test Item Value Reference Range Interpretation Comments Basophils (test code = 1.0 See_Comment [Aut omated message] The Basophils) system which ge nerated this result tra nsmitted reference range : <=1.0. The reference r kat was not used to int erpret this result as normal/abnormal . [facility] HeightsLjyohzaWEJYWIFGXI9972-25-70 13:03:00 Test Item Value Reference Range Interpretation Comments Segs-Bands # (test code = Segs-Bands #) 3.3 1.5-8.1 [facility] HeightsNqxcsdsYSZTVEHPPY9195-47-07 13:03:00 Test Item Value Reference Range Interpretation Comments Eosinophils (test code = 2.5 See_Comment [A utomated message] The Eosinophils) system which ge nerated this result tra nsmitted reference range : <=4.0. The reference r kat was not used to int erpret this result as normal/abnormal . [facility] HeightsLafhcvhIGYXCOEUKF3551-17-26 13:03:00 Test Item Value Reference Range Interpretation Comments Eosinophils # (test code 0.2 See_Comment [A utomated message] The = Eosinophils #) system wh h generated this result tra nsmitted reference range : <=0.5. The reference r kat was not used to int erpret this result as normal/abnormal . [facility] HeightsAomxhcrMEAAMBWIOZ1667-00-76 13:03:00 Test Item Value Reference Range Interpretation Comments Monocytes # (test code 0.7 See_Comment [Aut omated message] The = Monocytes #) system which generated this result tra nsmitted reference range : <=0.8. The reference r kat was not used to int erpret this result as normal/abnormal . [facility] [id number] 13:03:00 Test Item Value Reference Range Interpretation Comments Microcyte (test code = 1+ *ABN*(09/19/15 Microcyte) 7:03 AM) [facility] HeightsGtdsvdmYNUKCAOOFY0119-12-42 13:03:00 Test Item Value Reference Range Interpretation Comments Basophils # (test code 0.1 See_Comment [Aut omated message] The = Basophils #) system which generated this result tra nsmitted reference range : <=0.2. The reference r kat was not used to int erpret this result as normal/abnormal . [facility] [id number] 13:03:00 Test Item Value Reference Range Interpretation Comments Monocytes (test code = Monocytes) 10.4 2.0-12.0 [facility] HeightsCutsjgeDABNWTEOKH1343-68-81 13:03:00 Test Item Value Reference Range Interpretation Comments Lymphocytes (test code = Lymphocytes) 35.3 20.0-40.0 [facility] HeightsFlhzigvSTIVFOQOQC4015-37-81 13:03:00 Test Item Value Reference Range Interpretation Comments Segs (test code = Segs) 50.8 45.0-75.0 [facility] HeightsZedvubcASXJMLIDTX7268-20-39 13:03:00 Test Item Value Reference Range Interpretation Comments MCHC (test code = MCHC) 30.5 32.0-36.0 [facility] HeightsOiqelhhKVVTRASVDE0048-94-39 13:03:00 Test Item Value Reference Range Interpretation Comments Platelet (test code = Platelet) 175 133-450 [facility] HeightsOpedjmfVTOEUDVQGW1263-99-53 13:03:00 Test Item Value Reference Range Interpretation Comments RDW (test code = RDW) 17.1 11.5-14.5 [facility] HeightsBmhyurkWJMSQYLXXD7078-28-38 13:03:00 Test Item Value Reference Range Interpretation Comments MCV (test code = MCV) 78.4 80.0-98.0 [facility] HeightsOzoowozWUAREHWZWS0353-31-27 13:03:00 Test Item Value Reference Range Interpretation Comments MCH (test code = MCH) 24.0 pg 27.0-31.0 [facility] HeightsAjcpijvINLNTVWYWE0201-48-89 13:03:00 Test Item Value Reference Range Interpretation Comments RBC (test code = RBC) 5.15 4.20-5.40 [facility] HeightsHdvjaqzQAXUZSOYAH3402-10-89 13:03:00 Test Item Value Reference Range Interpretation Comments Hct (test code = Hct) 40.4 36.0-48.0 [facility] HeightsCkmkbpwDTPZBNGNYR3936-46-75 13:03:00 Test Item Value Reference Range Interpretation Comments WBC (test code = WBC) 6.5 3.7-10.4 [facility] HeightsHuyhraoSGARKNFDRH6047-04-94 13:03:00 Test Item Value Reference Range Interpretation Comments MPV (test code = MPV) 10.2 7.4-10.4 [facility] HeightsPokkbhdXGXKFFYAWJ7770-48-95 13:03:00 Test Item Value Reference Range Interpretation Comments Hgb (test code = Hgb) 12.3 12.0-16.0 [facility]2016-01-20 12:40:00 Test Item Value Reference Range Interpretation Comments eGFR (test code = eGFR) 129 [facility]2016-01-20 12:40:00 Test Item Value Reference Range Interpretation Comments Creatinine Lvl (test code = Creatinine 0.58 0.50-1.40 Lvl) [facility]2016-01-20 12:40:00 Test Item Value Reference Range Interpretation Comments CO2 (test code = CO2) 23 24-32 [facility]2016-01-20 12:40:00 Test Item Value Reference Range Interpretation Comments Chloride Lvl (test code = Chloride Lvl) 109 95-109 [facility]2016-01-20 12:40:00 Test Item Value Reference Range Interpretation Comments Calcium Lvl (test code = Calcium Lvl) 9.0 8.5-10.5 [facility]2016-01-20 12:40:00 Test Item Value Reference Range Interpretation Comments Potassium Lvl (test code = Potassium 3.7 3.5-5.1 Lvl) [facility]2016-01-20 12:40:00 Test Item Value Reference Range Interpretation Comments AGAP (test code = AGAP) 12.7 10.0-20.0 [facility]2016-01-20 12:40:00 Test Item Value Reference Range Interpretation Comments BUN (test code = BUN) 9 7-22 [facility]2016-01-20 12:40:00 Test Item Value Reference Range Interpretation Comments Sodium Lvl (test code = Sodium Lvl) 141 135-145 [facility]2016-01-20 12:40:00 Test Item Value Reference Range Interpretation Comments Glucose Lvl (test code = Glucose Lvl) 87 70-99 [facility]2016-01-20 12:40:00 Test Item Value Reference Range Interpretation Comments eGFR (test code = eGFR) 129 [facility]2016-01-20 12:40:00 Test Item Value Reference Range Interpretation Comments Creatinine Lvl (test code = Creatinine 0.58 0.50-1.40 Lvl) [facility]2016-01-20 12:40:00 Test Item Value Reference Range Interpretation Comments CO2 (test code = CO2) - [facility]2016-01-20 12:40:00 Test Item Value Reference Range Interpretation Comments Chloride Lvl (test code = Chloride Lvl) 109 95-109 [facility]2016-01-20 12:40:00 Test Item Value Reference Range Interpretation Comments Calcium Lvl (test code = Calcium Lvl) 9.0 8.5-10.5 [facility]2016-01-20 12:40:00 Test Item Value Reference Range Interpretation Comments Potassium Lvl (test code = Potassium 3.7 3.5-5.1 Lvl) [facility]2016-01-20 12:40:00 Test Item Value Reference Range Interpretation Comments AGAP (test code = AGAP) 12.7 10.0-20.0 [facility]2016-01-20 12:40:00 Test Item Value Reference Range Interpretation Comments BUN (test code = BUN) 9 7-22 [facility]2016-01-20 12:40:00 Test Item Value Reference Range Interpretation Comments Sodium Lvl (test code = Sodium Lvl) 141 135-145 [facility]2016-01-20 12:40:00 Test Item Value Reference Range Interpretation Comments Glucose Lvl (test code = Glucose Lvl) 87 70-99 [facility]2016-01-20 12:40:00 Test Item Value Reference Range Interpretation Comments eGFR (test code = eGFR) 129 [facility]2016-01-20 12:40:00 Test Item Value Reference Range Interpretation Comments Creatinine Lvl (test code = Creatinine 0.58 0.50-1.40 Lvl) [facility]2016-01-20 12:40:00 Test Item Value Reference Range Interpretation Comments CO2 (test code = CO2) 23 24- [facility]2016-01-20 12:40:00 Test Item Value Reference Range Interpretation Comments Chloride Lvl (test code = Chloride Lvl) 109 95-109 [facility]2016-01-20 12:40:00 Test Item Value Reference Range Interpretation Comments Calcium Lvl (test code = Calcium Lvl) 9.0 8.5-10.5 [facility]2016-01-20 12:40:00 Test Item Value Reference Range Interpretation Comments Potassium Lvl (test code = Potassium 3.7 3.5-5.1 Lvl) [facility]2016-01-20 12:40:00 Test Item Value Reference Range Interpretation Comments AGAP (test code = AGAP) 12.7 10.0-20.0 [facility]2016-01-20 12:40:00 Test Item Value Reference Range Interpretation Comments BUN (test code = BUN) 9 - [facility]2016-01-20 12:40:00 Test Item Value Reference Range Interpretation Comments Sodium Lvl (test code = Sodium Lvl) 141 135-145 [facility]2016-01-20 12:40:00 Test Item Value Reference Range Interpretation Comments Glucose Lvl (test code = Glucose Lvl) 87 70-99 [facility]2016-01-20 12:40:00 Test Item Value Reference Range Interpretation Comments eGFR (test code = eGFR) 129 [facility]2016-01-20 12:40:00 Test Item Value Reference Range Interpretation Comments Creatinine Lvl (test code = Creatinine 0.58 0.50-1.40 Lvl) [facility]2016-01-20 12:40:00 Test Item Value Reference Range Interpretation Comments CO2 (test code = CO2) 23 -32 [facility]2016-01-20 12:40:00 Test Item Value Reference Range Interpretation Comments Chloride Lvl (test code = Chloride Lvl) 109 95-109 [facility]2016-01-20 12:40:00 Test Item Value Reference Range Interpretation Comments Calcium Lvl (test code = Calcium Lvl) 9.0 8.5-10.5 [facility]2016-01-20 12:40:00 Test Item Value Reference Range Interpretation Comments Potassium Lvl (test code = Potassium 3.7 3.5-5.1 Lvl) [facility]2016-01-20 12:40:00 Test Item Value Reference Range Interpretation Comments AGAP (test code = AGAP) 12.7 10.0-20.0 [facility]2016-01-20 12:40:00 Test Item Value Reference Range Interpretation Comments BUN (test code = BUN) 9 7- [facility]2016-01-20 12:40:00 Test Item Value Reference Range Interpretation Comments Sodium Lvl (test code = Sodium Lvl) 141 135-145 [facility]2016-01-20 12:40:00 Test Item Value Reference Range Interpretation Comments Glucose Lvl (test code = Glucose Lvl) 87 70-99 [facility]2016-01-20 12:40:00 Test Item Value Reference Range Interpretation Comments eGFR (test code = eGFR) 129 [facility]2016-01-20 12:40:00 Test Item Value Reference Range Interpretation Comments Creatinine Lvl (test code = Creatinine 0.58 0.50-1.40 Lvl) [facility]2016-01-20 12:40:00 Test Item Value Reference Range Interpretation Comments CO2 (test code = CO2) 23 24-32 [facility]2016-01-20 12:40:00 Test Item Value Reference Range Interpretation Comments Chloride Lvl (test code = Chloride Lvl) 109 95-109 [facility]2016-01-20 12:40:00 Test Item Value Reference Range Interpretation Comments Calcium Lvl (test code = Calcium Lvl) 9.0 8.5-10.5 [facility]2016-01-20 12:40:00 Test Item Value Reference Range Interpretation Comments Potassium Lvl (test code = Potassium 3.7 3.5-5.1 Lvl) [facility]2016-01-20 12:40:00 Test Item Value Reference Range Interpretation Comments AGAP (test code = AGAP) 12.7 10.0-20.0 [facility]2016-01-20 12:40:00 Test Item Value Reference Range Interpretation Comments BUN (test code = BUN) 9 7-22 [facility]2016-01-20 12:40:00 Test Item Value Reference Range Interpretation Comments Sodium Lvl (test code = Sodium Lvl) 141 135-145 [facility]2016-01-20 12:40:00 Test Item Value Reference Range Interpretation Comments Glucose Lvl (test code = Glucose Lvl) 87 70- [facility]2016-01-20 12:40:00 Test Item Value Reference Range Interpretation Comments eGFR (test code = eGFR) 129 [facility]2016-01-20 12:40:00 Test Item Value Reference Range Interpretation Comments Creatinine Lvl (test code = Creatinine 0.58 0.50-1.40 Lvl) [facility]2016-01-20 12:40:00 Test Item Value Reference Range Interpretation Comments CO2 (test code = CO2) 23 24-32 [facility]2016-01-20 12:40:00 Test Item Value Reference Range Interpretation Comments Chloride Lvl (test code = Chloride Lvl) 109 95-109 [facility]2016-01-20 12:40:00 Test Item Value Reference Range Interpretation Comments Calcium Lvl (test code = Calcium Lvl) 9.0 8.5-10.5 [facility]2016-01-20 12:40:00 Test Item Value Reference Range Interpretation Comments Potassium Lvl (test code = Potassium 3.7 3.5-5.1 Lvl) [facility]2016-01-20 12:40:00 Test Item Value Reference Range Interpretation Comments AGAP (test code = AGAP) 12.7 10.0-20.0 [facility]2016-01-20 12:40:00 Test Item Value Reference Range Interpretation Comments BUN (test code = BUN) 9 7-22 [facility]2016-01-20 12:40:00 Test Item Value Reference Range Interpretation Comments Sodium Lvl (test code = Sodium Lvl) 141 135-145 [facility]2016-01-20 12:40:00 Test Item Value Reference Range Interpretation Comments Glucose Lvl (test code = Glucose Lvl) 87 70-99 [facility]2016-01-20 12:40:00 Test Item Value Reference Range Interpretation Comments eGFR (test code = eGFR) 129 [facility]2016-01-20 12:40:00 Test Item Value Reference Range Interpretation Comments Creatinine Lvl (test code = Creatinine 0.58 0.50-1.40 Lvl) [facility]2016-01-20 12:40:00 Test Item Value Reference Range Interpretation Comments CO2 (test code = CO2) 23 - [facility]2016-01-20 12:40:00 Test Item Value Reference Range Interpretation Comments Chloride Lvl (test code = Chloride Lvl) 109 95-109 [facility]2016-01-20 12:40:00 Test Item Value Reference Range Interpretation Comments Calcium Lvl (test code = Calcium Lvl) 9.0 8.5-10.5 [facility]2016-01-20 12:40:00 Test Item Value Reference Range Interpretation Comments Potassium Lvl (test code = Potassium 3.7 3.5-5.1 Lvl) [facility]2016-01-20 12:40:00 Test Item Value Reference Range Interpretation Comments AGAP (test code = AGAP) 12.7 10.0-20.0 [facility]2016-01-20 12:40:00 Test Item Value Reference Range Interpretation Comments BUN (test code = BUN) 9 7-22 [facility]2016-01-20 12:40:00 Test Item Value Reference Range Interpretation Comments Sodium Lvl (test code = Sodium Lvl) 141 135-145 [facility]2016-01-20 12:40:00 Test Item Value Reference Range Interpretation Comments Glucose Lvl (test code = Glucose Lvl) 87 70-99 [facility]2016-01-20 12:40:00 Test Item Value Reference Range Interpretation Comments eGFR (test code = eGFR) 129 [facility]2016-01-20 12:40:00 Test Item Value Reference Range Interpretation Comments Creatinine Lvl (test code = Creatinine 0.58 0.50-1.40 Lvl) [facility]2016-01-20 12:40:00 Test Item Value Reference Range Interpretation Comments CO2 (test code = CO2) 23 - [facility]2016-01-20 12:40:00 Test Item Value Reference Range Interpretation Comments Chloride Lvl (test code = Chloride Lvl) 109 95-109 [facility]2016-01-20 12:40:00 Test Item Value Reference Range Interpretation Comments Calcium Lvl (test code = Calcium Lvl) 9.0 8.5-10.5 [facility]2016-01-20 12:40:00 Test Item Value Reference Range Interpretation Comments Potassium Lvl (test code = Potassium 3.7 3.5-5.1 Lvl) [facility]2016-01-20 12:40:00 Test Item Value Reference Range Interpretation Comments AGAP (test code = AGAP) 12.7 10.0-20.0 [facility]2016-01-20 12:40:00 Test Item Value Reference Range Interpretation Comments BUN (test code = BUN) 9 7-22 [facility]2016-01-20 12:40:00 Test Item Value Reference Range Interpretation Comments Sodium Lvl (test code = Sodium Lvl) 141 135-145 [facility]2016-01-20 12:40:00 Test Item Value Reference Range Interpretation Comments Glucose Lvl (test code = Glucose Lvl) 87 70-99 [facility]2016-01-20 12:40:00 Test Item Value Reference Range Interpretation Comments eGFR (test code = eGFR) 129 [facility]2016-01-20 12:40:00 Test Item Value Reference Range Interpretation Comments Creatinine Lvl (test code = Creatinine 0.58 0.50-1.40 Lvl) [facility]2016-01-20 12:40:00 Test Item Value Reference Range Interpretation Comments CO2 (test code = CO2) 23 24-32 [facility]2016-01-20 12:40:00 Test Item Value Reference Range Interpretation Comments Chloride Lvl (test code = Chloride Lvl) 109 95-109 [facility]2016-01-20 12:40:00 Test Item Value Reference Range Interpretation Comments Calcium Lvl (test code = Calcium Lvl) 9.0 8.5-10.5 [facility]2016-01-20 12:40:00 Test Item Value Reference Range Interpretation Comments Potassium Lvl (test code = Potassium 3.7 3.5-5.1 Lvl) [facility]2016-01-20 12:40:00 Test Item Value Reference Range Interpretation Comments AGAP (test code = AGAP) 12.7 10.0-20.0 [facility]2016-01-20 12:40:00 Test Item Value Reference Range Interpretation Comments BUN (test code = BUN) 9 7-22 [facility]2016-01-20 12:40:00 Test Item Value Reference Range Interpretation Comments Sodium Lvl (test code = Sodium Lvl) 141 135-145 [facility]2016-01-20 12:40:00 Test Item Value Reference Range Interpretation Comments Glucose Lvl (test code = Glucose Lvl) 87 70-99 [facility]2016-01-20 12:40:00 Test Item Value Reference Range Interpretation Comments eGFR (test code = eGFR) 129 [facility]2016-01-20 12:40:00 Test Item Value Reference Range Interpretation Comments Creatinine Lvl (test code = Creatinine 0.58 0.50-1.40 Lvl) [facility]2016-01-20 12:40:00 Test Item Value Reference Range Interpretation Comments CO2 (test code = CO2) 23 24-32 [facility]2016-01-20 12:40:00 Test Item Value Reference Range Interpretation Comments Chloride Lvl (test code = Chloride Lvl) 109 95-109 [facility]2016-01-20 12:40:00 Test Item Value Reference Range Interpretation Comments Calcium Lvl (test code = Calcium Lvl) 9.0 8.5-10.5 [facility]2016-01-20 12:40:00 Test Item Value Reference Range Interpretation Comments Potassium Lvl (test code = Potassium 3.7 3.5-5.1 Lvl) [facility]2016-01-20 12:40:00 Test Item Value Reference Range Interpretation Comments AGAP (test code = AGAP) 12.7 10.0-20.0 [facility]2016-01-20 12:40:00 Test Item Value Reference Range Interpretation Comments BUN (test code = BUN) 9 7-22 [facility]2016-01-20 12:40:00 Test Item Value Reference Range Interpretation Comments Sodium Lvl (test code = Sodium Lvl) 141 135-145 [facility]2016-01-20 12:40:00 Test Item Value Reference Range Interpretation Comments Glucose Lvl (test code = Glucose Lvl) 87 70-99 [facility]2016-01-20 12:40:00 Test Item Value Reference Range Interpretation Comments eGFR (test code = eGFR) 129 [facility]2016-01-20 12:40:00 Test Item Value Reference Range Interpretation Comments Creatinine Lvl (test code = Creatinine 0.58 0.50-1.40 Lvl) [facility]2016-01-20 12:40:00 Test Item Value Reference Range Interpretation Comments CO2 (test code = CO2) - [facility]2016-01-20 12:40:00 Test Item Value Reference Range Interpretation Comments Chloride Lvl (test code = Chloride Lvl) 109 95-109 [facility]2016-01-20 12:40:00 Test Item Value Reference Range Interpretation Comments Calcium Lvl (test code = Calcium Lvl) 9.0 8.5-10.5 [facility]2016-01-20 12:40:00 Test Item Value Reference Range Interpretation Comments Potassium Lvl (test code = Potassium 3.7 3.5-5.1 Lvl) [facility]2016-01-20 12:40:00 Test Item Value Reference Range Interpretation Comments AGAP (test code = AGAP) 12.7 10.0-20.0 [facility]2016-01-20 12:40:00 Test Item Value Reference Range Interpretation Comments BUN (test code = BUN) 9 7-22 [facility]2016-01-20 12:40:00 Test Item Value Reference Range Interpretation Comments Sodium Lvl (test code = Sodium Lvl) 141 135-145 [facility]2016-01-20 12:40:00 Test Item Value Reference Range Interpretation Comments Glucose Lvl (test code = Glucose Lvl) 87 70-99 [facility]2016-01-20 12:40:00 Test Item Value Reference Range Interpretation Comments eGFR (test code = eGFR) 129 [facility]2016-01-20 12:40:00 Test Item Value Reference Range Interpretation Comments Creatinine Lvl (test code = Creatinine 0.58 0.50-1.40 Lvl) [facility]2016-01-20 12:40:00 Test Item Value Reference Range Interpretation Comments CO2 (test code = CO2) 23 24-32 [facility]2016-01-20 12:40:00 Test Item Value Reference Range Interpretation Comments Chloride Lvl (test code = Chloride Lvl) 109 95-109 [facility]2016-01-20 12:40:00 Test Item Value Reference Range Interpretation Comments Calcium Lvl (test code = Calcium Lvl) 9.0 8.5-10.5 [facility]2016-01-20 12:40:00 Test Item Value Reference Range Interpretation Comments Potassium Lvl (test code = Potassium 3.7 3.5-5.1 Lvl) [facility]2016-01-20 12:40:00 Test Item Value Reference Range Interpretation Comments AGAP (test code = AGAP) 12.7 10.0-20.0 [facility]2016-01-20 12:40:00 Test Item Value Reference Range Interpretation Comments BUN (test code = BUN) 9 7-22 [facility]2016-01-20 12:40:00 Test Item Value Reference Range Interpretation Comments Sodium Lvl (test code = Sodium Lvl) 141 135-145 [facility]2016-01-20 12:40:00 Test Item Value Reference Range Interpretation Comments Glucose Lvl (test code = Glucose Lvl) 87 70-99 [facility]2016-01-20 12:40:00 Test Item Value Reference Range Interpretation Comments eGFR (test code = eGFR) 129 [facility]2016-01-20 12:40:00 Test Item Value Reference Range Interpretation Comments Creatinine Lvl (test code = Creatinine 0.58 0.50-1.40 Lvl) [facility]2016-01-20 12:40:00 Test Item Value Reference Range Interpretation Comments CO2 (test code = CO2) 23 24-32 [facility]2016-01-20 12:40:00 Test Item Value Reference Range Interpretation Comments Chloride Lvl (test code = Chloride Lvl) 109 95-109 [facility]2016-01-20 12:40:00 Test Item Value Reference Range Interpretation Comments Calcium Lvl (test code = Calcium Lvl) 9.0 8.5-10.5 [facility]2016-01-20 12:40:00 Test Item Value Reference Range Interpretation Comments Potassium Lvl (test code = Potassium 3.7 3.5-5.1 Lvl) [facility]2016-01-20 12:40:00 Test Item Value Reference Range Interpretation Comments AGAP (test code = AGAP) 12.7 10.0-20.0 [facility]2016-01-20 12:40:00 Test Item Value Reference Range Interpretation Comments BUN (test code = BUN) 9 - [facility]2016-01-20 12:40:00 Test Item Value Reference Range Interpretation Comments Sodium Lvl (test code = Sodium Lvl) 141 135-145 [facility]2016-01-20 12:40:00 Test Item Value Reference Range Interpretation Comments Glucose Lvl (test code = Glucose Lvl) 87 70-99 [facility]2016-01-20 12:40:00 Test Item Value Reference Range Interpretation Comments eGFR (test code = eGFR) 129 [facility]2016-01-20 12:40:00 Test Item Value Reference Range Interpretation Comments Creatinine Lvl (test code = Creatinine 0.58 0.50-1.40 Lvl) [facility]2016-01-20 12:40:00 Test Item Value Reference Range Interpretation Comments CO2 (test code = CO2) 23 24-32 [facility]2016-01-20 12:40:00 Test Item Value Reference Range Interpretation Comments Chloride Lvl (test code = Chloride Lvl) 109 95-109 [facility]2016-01-20 12:40:00 Test Item Value Reference Range Interpretation Comments Calcium Lvl (test code = Calcium Lvl) 9.0 8.5-10.5 [facility]2016-01-20 12:40:00 Test Item Value Reference Range Interpretation Comments Potassium Lvl (test code = Potassium 3.7 3.5-5.1 Lvl) [facility]2016-01-20 12:40:00 Test Item Value Reference Range Interpretation Comments AGAP (test code = AGAP) 12.7 10.0-20.0 [facility]2016-01-20 12:40:00 Test Item Value Reference Range Interpretation Comments BUN (test code = BUN) 9 -22 [facility]2016-01-20 12:40:00 Test Item Value Reference Range Interpretation Comments Sodium Lvl (test code = Sodium Lvl) 141 135-145 [facility]2016-01-20 12:40:00 Test Item Value Reference Range Interpretation Comments Glucose Lvl (test code = Glucose Lvl) 87 70-99 [facility]2016-01-20 12:40:00 Test Item Value Reference Range Interpretation Comments eGFR (test code = eGFR) 129 [facility]2016-01-20 12:40:00 Test Item Value Reference Range Interpretation Comments Creatinine Lvl (test code = Creatinine 0.58 0.50-1.40 Lvl) [facility]2016-01-20 12:40:00 Test Item Value Reference Range Interpretation Comments CO2 (test code = CO2) 23 24-32 [facility]2016-01-20 12:40:00 Test Item Value Reference Range Interpretation Comments Chloride Lvl (test code = Chloride Lvl) 109 95-109 [facility]2016-01-20 12:40:00 Test Item Value Reference Range Interpretation Comments Calcium Lvl (test code = Calcium Lvl) 9.0 8.5-10.5 [facility]2016-01-20 12:40:00 Test Item Value Reference Range Interpretation Comments Potassium Lvl (test code = Potassium 3.7 3.5-5.1 Lvl) [facility]2016-01-20 12:40:00 Test Item Value Reference Range Interpretation Comments AGAP (test code = AGAP) 12.7 10.0-20.0 [facility]2016-01-20 12:40:00 Test Item Value Reference Range Interpretation Comments BUN (test code = BUN) 9 7-22 [facility]2016-01-20 12:40:00 Test Item Value Reference Range Interpretation Comments Sodium Lvl (test code = Sodium Lvl) 141 135-145 [facility]2016-01-20 12:40:00 Test Item Value Reference Range Interpretation Comments Glucose Lvl (test code = Glucose Lvl) 87 70-99 [facility]2016-01-20 12:40:00 Test Item Value Reference Range Interpretation Comments eGFR (test code = eGFR) 129 [facility]2016-01-20 12:40:00 Test Item Value Reference Range Interpretation Comments Creatinine Lvl (test code = Creatinine 0.58 0.50-1.40 Lvl) [facility]2016-01-20 12:40:00 Test Item Value Reference Range Interpretation Comments CO2 (test code = CO2) 23 24-32 [facility]2016-01-20 12:40:00 Test Item Value Reference Range Interpretation Comments Chloride Lvl (test code = Chloride Lvl) 109 95-109 [facility]2016-01-20 12:40:00 Test Item Value Reference Range Interpretation Comments Calcium Lvl (test code = Calcium Lvl) 9.0 8.5-10.5 [facility]2016-01-20 12:40:00 Test Item Value Reference Range Interpretation Comments Potassium Lvl (test code = Potassium 3.7 3.5-5.1 Lvl) [facility]2016-01-20 12:40:00 Test Item Value Reference Range Interpretation Comments AGAP (test code = AGAP) 12.7 10.0-20.0 [facility]2016-01-20 12:40:00 Test Item Value Reference Range Interpretation Comments BUN (test code = BUN) 9 7-22 [facility]2016-01-20 12:40:00 Test Item Value Reference Range Interpretation Comments Sodium Lvl (test code = Sodium Lvl) 141 135-145 [facility]2016-01-20 12:40:00 Test Item Value Reference Range Interpretation Comments Glucose Lvl (test code = Glucose Lvl) 87 70-99 [facility] AND [id number] 05:30:00 Test Item Value Reference Range Interpretation Comments UA Urobilinogen (test code = UA <=1.0 mg/dL 0.1-1.0 Urobilinogen) [facility] AND [id number] 05:30:00 Test Item Value Reference Range Interpretation Comments UA Color (test code = UA Color) Marry [facility] AND [id number] 05:30:00 Test Item Value Reference Range Interpretation Comments UA Bacteria (test code = UA Many /HPF Bacteria) [facility] AND [id number] 05:30:00 Test Item Value Reference Range Interpretation Comments UA Mucus (test code = UA Mucus) Many /LPF [facility] AND [id number] 05:30:00 Test Item Value Reference Range Interpretation Comments UA Leuk Est (test code Large *ABN*(09/17/15 = UA Leuk Est) 11:30 PM) [facility] AND [id number] 05:30:00 Test Item Value Reference Range Interpretation Comments UA Sq Epi (test code = UA Sq Epi) Many /LPF [facility] AND [id number] 05:30:00 Test Item Value Reference Range Interpretation Comments UA Nitrite (test code Negative (09/17/15 11:30 = UA Nitrite) PM) [facility] AND [id number] 05:30:00 Test Item Value Reference Range Interpretation Comments UA WBC (test code = 16 See_Comment [Automa arvind message] The UA WBC) system which ge nerated this result transmit arvind reference range : <=5. The reference range was not used to interpr et this result as mario l/abnormal. [facility] AND [id number] 05:30:00 Test Item Value Reference Range Interpretation Comments UA RBC (test code = 5 See_Comment [Automa arvind message] The UA RBC) system which ge nerated this result transmit arvind reference range : <=2. The reference range was not used to interpr et this result as mario l/abnormal. [facility] AND [id number] 05:30:00 Test Item Value Reference Range Interpretation Comments UA Bili (test code = Negative *NA*(09/17/15 UA Bili) 11:30 PM) [facility] AND [id number] 05:30:00 Test Item Value Reference Range Interpretation Comments UA Blood (test code = Negative (09/17/15 11:30 UA Blood) PM) [facility] AND [id number] 05:30:00 Test Item Value Reference Range Interpretation Comments UA Glucose (test code = UA Negative mg/dL Glucose) [facility] AND [id number] 05:30:00 Test Item Value Reference Range Interpretation Comments UA Ketones (test code = UA Trace mg/dL Ketones) [facility] AND [id number] 05:30:00 Test Item Value Reference Range Interpretation Comments UA Protein (test code = UA Protein) 30 mg/dL [facility] AND [id number] 05:30:00 Test Item Value Reference Range Interpretation Comments UA pH (test code = UA pH) 5.0 5.0-8.0 [facility] [id number] 05:30:00 Test Item Value Reference Range Interpretation Comments UA Spec Grav (test code = UA Spec Grav) 1.030 [facility] [id number] 05:30:00 Test Item Value Reference Range Interpretation Comments UA Turbidity (test code Marked *ABN*(09/17/15 = UA Turbidity) 11:30 PM) [facility] [id number] 05:30:00 Test Item Value Reference Range Interpretation Comments U Preg (test code = U Negative (09/17/15 11:30 Preg) PM) [facility] AND [id number] 05:30:00 Test Item Value Reference Range Interpretation Comments UA Urobilinogen (test code = UA <=1.0 mg/dL 0.1-1.0 Urobilinogen) [facility] AND [id number] 05:30:00 Test Item Value Reference Range Interpretation Comments UA Color (test code = UA Color) Marry [facility] AND [id number] 05:30:00 Test Item Value Reference Range Interpretation Comments UA Bacteria (test code = UA Many /HPF Bacteria) [facility] [id number] 05:30:00 Test Item Value Reference Range Interpretation Comments UA Mucus (test code = UA Mucus) Many /LPF [facility] AND [id number] 05:30:00 Test Item Value Reference Range Interpretation Comments UA Leuk Est (test code Large *ABN*(09/17/15 = UA Leuk Est) 11:30 PM) [facility] [id number] 05:30:00 Test Item Value Reference Range Interpretation Comments UA Sq Epi (test code = UA Sq Epi) Many /LPF [facility] [id number] 05:30:00 Test Item Value Reference Range Interpretation Comments UA Nitrite (test code Negative (09/17/15 11:30 = UA Nitrite) PM) [facility] [id number] 05:30:00 Test Item Value Reference Range Interpretation Comments UA WBC (test code = 16 See_Comment [Automa arvind message] The UA WBC) system which ge nerated this result transmit arvind reference range : <=5. The reference range was not used to interpr et this result as mario l/abnormal. [facility] [id number] 05:30:00 Test Item Value Reference Range Interpretation Comments UA RBC (test code = 5 See_Comment [Automa arvind message] The UA RBC) system which ge nerated this result transmit arvind reference range : <=2. The reference range was not used to interpr et this result as mario l/abnormal. [facility] [id number] 05:30:00 Test Item Value Reference Range Interpretation Comments UA Bili (test code = Negative *NA*(09/17/15 UA Bili) 11:30 PM) [facility] [id number] 05:30:00 Test Item Value Reference Range Interpretation Comments UA Blood (test code = Negative (09/17/15 11:30 UA Blood) PM) [facility] AND [id number] 05:30:00 Test Item Value Reference Range Interpretation Comments UA Glucose (test code = UA Negative mg/dL Glucose) [facility] AND [id number] 05:30:00 Test Item Value Reference Range Interpretation Comments UA Ketones (test code = UA Trace mg/dL Ketones) [facility] AND [id number] 05:30:00 Test Item Value Reference Range Interpretation Comments UA Protein (test code = UA Protein) 30 mg/dL [facility] AND [id number] 05:30:00 Test Item Value Reference Range Interpretation Comments UA pH (test code = UA pH) 5.0 5.0-8.0 [facility] AND [id number] 05:30:00 Test Item Value Reference Range Interpretation Comments UA Spec Grav (test code = UA Spec Grav) 1.030 [facility] AND [id number] 05:30:00 Test Item Value Reference Range Interpretation Comments UA Turbidity (test code Marked *ABN*(09/17/15 = UA Turbidity) 11:30 PM) [facility] [id number] 05:30:00 Test Item Value Reference Range Interpretation Comments U Preg (test code = U Negative (09/17/15 11:30 Preg) PM) [facility] AND [id number] 05:30:00 Test Item Value Reference Range Interpretation Comments UA Urobilinogen (test code = UA <=1.0 mg/dL 0.1-1.0 Urobilinogen) [facility] AND [id number] 05:30:00 Test Item Value Reference Range Interpretation Comments UA Color (test code = UA Color) Marry [facility] AND [id number] 05:30:00 Test Item Value Reference Range Interpretation Comments UA Bacteria (test code = UA Many /HPF Bacteria) [facility] AND [id number] 05:30:00 Test Item Value Reference Range Interpretation Comments UA Mucus (test code = UA Mucus) Many /LPF [facility] AND [id number] 05:30:00 Test Item Value Reference Range Interpretation Comments UA Leuk Est (test code Large *ABN*(09/17/15 = UA Leuk Est) 11:30 PM) [facility] AND [id number] 05:30:00 Test Item Value Reference Range Interpretation Comments UA Sq Epi (test code = UA Sq Epi) Many /LPF [facility] AND [id number] 05:30:00 Test Item Value Reference Range Interpretation Comments UA Nitrite (test code Negative (09/17/15 11:30 = UA Nitrite) PM) [facility] AND [id number] 05:30:00 Test Item Value Reference Range Interpretation Comments UA WBC (test code = 16 See_Comment [Automa arvind message] The UA WBC) system which ge nerated this result transmit arvind reference range : <=5. The reference range was not used to interpr et this result as mario l/abnormal. [facility] AND [id number] 05:30:00 Test Item Value Reference Range Interpretation Comments UA RBC (test code = 5 See_Comment [Automa arvind message] The UA RBC) system which ge nerated this result transmit arvind reference range : <=2. The reference range was not used to interpr et this result as mario l/abnormal. [facility] AND [id number] 05:30:00 Test Item Value Reference Range Interpretation Comments UA Bili (test code = Negative *NA*(09/17/15 UA Bili) 11:30 PM) [facility] AND [id number] 05:30:00 Test Item Value Reference Range Interpretation Comments UA Blood (test code = Negative (09/17/15 11:30 UA Blood) PM) [facility] AND [id number] 05:30:00 Test Item Value Reference Range Interpretation Comments UA Glucose (test code = UA Negative mg/dL Glucose) [facility] AND [id number] 05:30:00 Test Item Value Reference Range Interpretation Comments UA Ketones (test code = UA Trace mg/dL Ketones) [facility] AND [id number] 05:30:00 Test Item Value Reference Range Interpretation Comments UA Protein (test code = UA Protein) 30 mg/dL [facility] AND [id number] 05:30:00 Test Item Value Reference Range Interpretation Comments UA pH (test code = UA pH) 5.0 5.0-8.0 [facility] AND [id number] 05:30:00 Test Item Value Reference Range Interpretation Comments UA Spec Grav (test code = UA Spec Grav) 1.030 [facility] AND [id number] 05:30:00 Test Item Value Reference Range Interpretation Comments UA Turbidity (test code Marked *ABN*(09/17/15 = UA Turbidity) 11:30 PM) [facility] [id number] 05:30:00 Test Item Value Reference Range Interpretation Comments U Preg (test code = U Negative (09/17/15 11:30 Preg) PM) [facility] AND [id number] 05:30:00 Test Item Value Reference Range Interpretation Comments UA Urobilinogen (test code = UA <=1.0 mg/dL 0.1-1.0 Urobilinogen) [facility] AND [id number] 05:30:00 Test Item Value Reference Range Interpretation Comments UA Color (test code = UA Color) Marry [facility] AND [id number] 05:30:00 Test Item Value Reference Range Interpretation Comments UA Bacteria (test code = UA Many /HPF Bacteria) [facility] AND [id number] 05:30:00 Test Item Value Reference Range Interpretation Comments UA Mucus (test code = UA Mucus) Many /LPF [facility] AND [id number] 05:30:00 Test Item Value Reference Range Interpretation Comments UA Urobilinogen (test code = UA <=1.0 mg/dL 0.1-1.0 Urobilinogen) [facility] AND [id number] 05:30:00 Test Item Value Reference Range Interpretation Comments UA Color (test code = UA Color) Marry [facility] AND [id number] 05:30:00 Test Item Value Reference Range Interpretation Comments UA Bacteria (test code = UA Many /HPF Bacteria) [facility] AND [id number] 05:30:00 Test Item Value Reference Range Interpretation Comments UA Mucus (test code = UA Mucus) Many /LPF [facility] AND [id number] 05:30:00 Test Item Value Reference Range Interpretation Comments UA Leuk Est (test code Large *ABN*(09/17/15 = UA Leuk Est) 11:30 PM) [facility] AND [id number] 05:30:00 Test Item Value Reference Range Interpretation Comments UA Sq Epi (test code = UA Sq Epi) Many /LPF [facility] AND [id number] 05:30:00 Test Item Value Reference Range Interpretation Comments UA Leuk Est (test code Large *ABN*(09/17/15 = UA Leuk Est) 11:30 PM) [facility] AND [id number] 05:30:00 Test Item Value Reference Range Interpretation Comments UA Nitrite (test code Negative (09/17/15 11:30 = UA Nitrite) PM) [facility] AND [id number] 05:30:00 Test Item Value Reference Range Interpretation Comments UA WBC (test code = 16 See_Comment [Automa arvind message] The UA WBC) system which ge nerated this result transmit arvind reference range : <=5. The reference range was not used to interpr et this result as mario l/abnormal. [facility] AND [id number] 05:30:00 Test Item Value Reference Range Interpretation Comments UA RBC (test code = 5 See_Comment [Automa arvind message] The UA RBC) system which ge nerated this result transmit arvind reference range : <=2. The reference range was not used to interpr et this result as mario l/abnormal. [facility] AND [id number] 05:30:00 Test Item Value Reference Range Interpretation Comments UA Bili (test code = Negative *NA*(09/17/15 UA Bili) 11:30 PM) [facility] AND [id number] 05:30:00 Test Item Value Reference Range Interpretation Comments UA Blood (test code = Negative (09/17/15 11:30 UA Blood) PM) [facility] AND [id number] 05:30:00 Test Item Value Reference Range Interpretation Comments UA Glucose (test code = UA Negative mg/dL Glucose) [facility] AND [id number] 05:30:00 Test Item Value Reference Range Interpretation Comments UA Ketones (test code = UA Trace mg/dL Ketones) [facility] AND [id number] 05:30:00 Test Item Value Reference Range Interpretation Comments UA Protein (test code = UA Protein) 30 mg/dL [facility] AND [id number] 05:30:00 Test Item Value Reference Range Interpretation Comments UA pH (test code = UA pH) 5.0 5.0-8.0 [facility] AND [id number] 05:30:00 Test Item Value Reference Range Interpretation Comments UA Spec Grav (test code = UA Spec Grav) 1.030 [facility] AND [id number] 05:30:00 Test Item Value Reference Range Interpretation Comments UA Sq Epi (test code = UA Sq Epi) Many /LPF [facility] AND [id number] 05:30:00 Test Item Value Reference Range Interpretation Comments UA Turbidity (test code Marked *ABN*(09/17/15 = UA Turbidity) 11:30 PM) [facility] [id number] 05:30:00 Test Item Value Reference Range Interpretation Comments U Preg (test code = U Negative (09/17/15 11:30 Preg) PM) [facility] AND [id number] 05:30:00 Test Item Value Reference Range Interpretation Comments UA Nitrite (test code Negative (09/17/15 11:30 = UA Nitrite) PM) [facility] AND [id number] 05:30:00 Test Item Value Reference Range Interpretation Comments UA WBC (test code = 16 See_Comment [Automa arvind message] The UA WBC) system which ge nerated this result transmit arvind reference range : <=5. The reference range was not used to interpr et this result as mario l/abnormal. [facility] AND [id number] 05:30:00 Test Item Value Reference Range Interpretation Comments UA RBC (test code = 5 See_Comment [Automa arvind message] The UA RBC) system which ge nerated this result transmit arvind reference range : <=2. The reference range was not used to interpr et this result as mario l/abnormal. [facility] AND [id number] 05:30:00 Test Item Value Reference Range Interpretation Comments UA Bili (test code = Negative *NA*(09/17/15 UA Bili) 11:30 PM) [facility] AND [id number] 05:30:00 Test Item Value Reference Range Interpretation Comments UA Blood (test code = Negative (09/17/15 11:30 UA Blood) PM) [facility] AND [id number] 05:30:00 Test Item Value Reference Range Interpretation Comments UA Glucose (test code = UA Negative mg/dL Glucose) [facility] AND [id number] 05:30:00 Test Item Value Reference Range Interpretation Comments UA Ketones (test code = UA Trace mg/dL Ketones) [facility] AND [id number] 05:30:00 Test Item Value Reference Range Interpretation Comments UA Protein (test code = UA Protein) 30 mg/dL [facility] AND [id number] 05:30:00 Test Item Value Reference Range Interpretation Comments UA pH (test code = UA pH) 5.0 5.0-8.0 [facility] AND [id number] 05:30:00 Test Item Value Reference Range Interpretation Comments UA Spec Grav (test code = UA Spec Grav) 1.030 [facility] AND [id number] 05:30:00 Test Item Value Reference Range Interpretation Comments UA Turbidity (test code Marked *ABN*(09/17/15 = UA Turbidity) 11:30 PM) [facility] [id number] 05:30:00 Test Item Value Reference Range Interpretation Comments U Preg (test code = U Negative (09/17/15 11:30 Preg) PM) [facility] AND [id number] 05:30:00 Test Item Value Reference Range Interpretation Comments UA Urobilinogen (test code = UA <=1.0 mg/dL 0.1-1.0 Urobilinogen) [facility] [id number] 05:30:00 Test Item Value Reference Range Interpretation Comments UA Color (test code = UA Color) Marry [facility] AND [id number] 05:30:00 Test Item Value Reference Range Interpretation Comments UA Bacteria (test code = UA Many /HPF Bacteria) [facility] [id number] 05:30:00 Test Item Value Reference Range Interpretation Comments UA Mucus (test code = UA Mucus) Many /LPF [facility] [id number] 05:30:00 Test Item Value Reference Range Interpretation Comments UA Leuk Est (test code Large *ABN*(09/17/15 = UA Leuk Est) 11:30 PM) [facility] AND [id number] 05:30:00 Test Item Value Reference Range Interpretation Comments UA Sq Epi (test code = UA Sq Epi) [facility] [id number] 05:30:00 Test Item Value Reference Range Interpretation Comments UA Nitrite (test code Negative (09/17/15 11:30 = UA Nitrite) PM) [facility] [id number] 05:30:00 Test Item Value Reference Range Interpretation Comments UA WBC (test code = 16 See_Comment [Automa arvind message] The UA WBC) system which ge nerated this result transmit arvind reference range : <=5. The reference range was not used to interpr et this result as mario l/abnormal. [facility] [id number] 05:30:00 Test Item Value Reference Range Interpretation Comments UA RBC (test code = 5 See_Comment [Automa arvind message] The UA RBC) system which ge nerated this result transmit arvind reference range : <=2. The reference range was not used to interpr et this result as mario l/abnormal. [facility] [id number] 05:30:00 Test Item Value Reference Range Interpretation Comments UA Bili (test code = Negative *NA*(09/17/15 UA Bili) 11:30 PM) [facility] AND [id number] 05:30:00 Test Item Value Reference Range Interpretation Comments UA Blood (test code = Negative (09/17/15 11:30 UA Blood) PM) [facility] AND [id number] 05:30:00 Test Item Value Reference Range Interpretation Comments UA Glucose (test code = UA Negative mg/dL Glucose) [facility] AND [id number] 05:30:00 Test Item Value Reference Range Interpretation Comments UA Ketones (test code = UA Trace mg/dL Ketones) [facility] AND [id number] 05:30:00 Test Item Value Reference Range Interpretation Comments UA Protein (test code = UA Protein) 30 mg/dL [facility] AND [id number] 05:30:00 Test Item Value Reference Range Interpretation Comments UA pH (test code = UA pH) 5.0 5.0-8.0 [facility] AND [id number] 05:30:00 Test Item Value Reference Range Interpretation Comments UA Spec Grav (test code = UA Spec Grav) 1.030 [facility] AND [id number] 05:30:00 Test Item Value Reference Range Interpretation Comments UA Turbidity (test code Marked *ABN*(09/17/15 = UA Turbidity) 11:30 PM) [facility] [id number] 05:30:00 Test Item Value Reference Range Interpretation Comments U Preg (test code = U Negative (09/17/15 11:30 Preg) PM) [facility] AND [id number] 05:30:00 Test Item Value Reference Range Interpretation Comments UA Urobilinogen (test code = UA <=1.0 mg/dL 0.1-1.0 Urobilinogen) [facility] AND [id number] 05:30:00 Test Item Value Reference Range Interpretation Comments UA Color (test code = UA Color) Marry [facility] AND [id number] 05:30:00 Test Item Value Reference Range Interpretation Comments UA Bacteria (test code = UA Many /HPF Bacteria) [facility] AND [id number] 05:30:00 Test Item Value Reference Range Interpretation Comments UA Mucus (test code = UA Mucus) Many /LPF [facility] AND [id number] 05:30:00 Test Item Value Reference Range Interpretation Comments UA Leuk Est (test code Large *ABN*(09/17/15 = UA Leuk Est) 11:30 PM) [facility] AND [id number] 05:30:00 Test Item Value Reference Range Interpretation Comments UA Sq Epi (test code = UA Sq Epi) Many /LPF [facility] AND [id number] 05:30:00 Test Item Value Reference Range Interpretation Comments UA Nitrite (test code Negative (09/17/15 11:30 = UA Nitrite) PM) [facility] AND [id number] 05:30:00 Test Item Value Reference Range Interpretation Comments UA WBC (test code = 16 See_Comment [Automa arvind message] The UA WBC) system which ge nerated this result transmit arvind reference range : <=5. The reference range was not used to interpr et this result as mario l/abnormal. [facility] AND [id number] 05:30:00 Test Item Value Reference Range Interpretation Comments UA RBC (test code = 5 See_Comment [Automa arvind message] The UA RBC) system which ge nerated this result transmit arvind reference range : <=2. The reference range was not used to interpr et this result as mario l/abnormal. [facility] AND [id number] 05:30:00 Test Item Value Reference Range Interpretation Comments UA Bili (test code = Negative *NA*(09/17/15 UA Bili) 11:30 PM) [facility] AND [id number] 05:30:00 Test Item Value Reference Range Interpretation Comments UA Blood (test code = Negative (09/17/15 11:30 UA Blood) PM) [facility] AND [id number] 05:30:00 Test Item Value Reference Range Interpretation Comments UA Glucose (test code = UA Negative mg/dL Glucose) [facility] AND [id number] 05:30:00 Test Item Value Reference Range Interpretation Comments UA Ketones (test code = UA Trace mg/dL Ketones) [facility] AND [id number] 05:30:00 Test Item Value Reference Range Interpretation Comments UA Protein (test code = UA Protein) 30 mg/dL [facility] AND [id number] 05:30:00 Test Item Value Reference Range Interpretation Comments UA pH (test code = UA pH) 5.0 5.0-8.0 [facility] [id number] 05:30:00 Test Item Value Reference Range Interpretation Comments UA Spec Grav (test code = UA Spec Grav) 1.030 [facility] [id number] 05:30:00 Test Item Value Reference Range Interpretation Comments UA Turbidity (test code Marked *ABN*(09/17/15 = UA Turbidity) 11:30 PM) [facility] [id number] 05:30:00 Test Item Value Reference Range Interpretation Comments U Preg (test code = U Negative (09/17/15 11:30 Preg) PM) [facility] [id number] 05:30:00 Test Item Value Reference Range Interpretation Comments UA Urobilinogen (test code = UA <=1.0 mg/dL 0.1-1.0 Urobilinogen) [facility] AND [id number] 05:30:00 Test Item Value Reference Range Interpretation Comments UA Color (test code = UA Color) Marry [facility] AND [id number] 05:30:00 Test Item Value Reference Range Interpretation Comments UA Bacteria (test code = UA Many /HPF Bacteria) [facility] [id number] 05:30:00 Test Item Value Reference Range Interpretation Comments UA Mucus (test code = UA Mucus) Many /LPF [facility] AND [id number] 05:30:00 Test Item Value Reference Range Interpretation Comments UA Leuk Est (test code Large *ABN*(09/17/15 = UA Leuk Est) 11:30 PM) [facility] [id number] 05:30:00 Test Item Value Reference Range Interpretation Comments UA Sq Epi (test code = UA Sq Epi) Many /LPF [facility] [id number] 05:30:00 Test Item Value Reference Range Interpretation Comments UA Nitrite (test code Negative (09/17/15 11:30 = UA Nitrite) PM) [facility] [id number] 05:30:00 Test Item Value Reference Range Interpretation Comments UA WBC (test code = 16 See_Comment [Automa arvind message] The UA WBC) system which ge nerated this result transmit arvind reference range : <=5. The reference range was not used to interpr et this result as mario l/abnormal. [facility] AND [id number] 05:30:00 Test Item Value Reference Range Interpretation Comments UA RBC (test code = 5 See_Comment [Automa arvind message] The UA RBC) system which ge nerated this result transmit arvind reference range : <=2. The reference range was not used to interpr et this result as mario l/abnormal. [facility] AND [id number] 05:30:00 Test Item Value Reference Range Interpretation Comments UA Bili (test code = Negative *NA*(09/17/15 UA Bili) 11:30 PM) [facility] AND [id number] 05:30:00 Test Item Value Reference Range Interpretation Comments UA Blood (test code = Negative (09/17/15 11:30 UA Blood) PM) [facility] AND [id number] 05:30:00 Test Item Value Reference Range Interpretation Comments UA Glucose (test code = UA Negative mg/dL Glucose) [facility] AND [id number] 05:30:00 Test Item Value Reference Range Interpretation Comments UA Ketones (test code = UA Trace mg/dL Ketones) [facility] AND [id number] 05:30:00 Test Item Value Reference Range Interpretation Comments UA Protein (test code = UA Protein) 30 mg/dL [facility] AND [id number] 05:30:00 Test Item Value Reference Range Interpretation Comments UA pH (test code = UA pH) 5.0 5.0-8.0 [facility] AND [id number] 05:30:00 Test Item Value Reference Range Interpretation Comments UA Spec Grav (test code = UA Spec Grav) 1.030 [facility] AND [id number] 05:30:00 Test Item Value Reference Range Interpretation Comments UA Turbidity (test code Marked *ABN*(09/17/15 = UA Turbidity) 11:30 PM) [facility] [id number] 05:30:00 Test Item Value Reference Range Interpretation Comments U Preg (test code = U Negative (09/17/15 11:30 Preg) PM) [facility] AND [id number] 05:30:00 Test Item Value Reference Range Interpretation Comments UA Urobilinogen (test code = UA <=1.0 mg/dL 0.1-1.0 Urobilinogen) [facility] [id number] 05:30:00 Test Item Value Reference Range Interpretation Comments UA Color (test code = UA Color) Marry [facility] AND [id number] 05:30:00 Test Item Value Reference Range Interpretation Comments UA Bacteria (test code = UA Many /HPF Bacteria) [facility] [id number] 05:30:00 Test Item Value Reference Range Interpretation Comments UA Mucus (test code = UA Mucus) Many /LPF [facility] AND [id number] 05:30:00 Test Item Value Reference Range Interpretation Comments UA Leuk Est (test code Large *ABN*(09/17/15 = UA Leuk Est) 11:30 PM) [facility] AND [id number] 05:30:00 Test Item Value Reference Range Interpretation Comments UA Sq Epi (test code = UA Sq Epi) Many /LPF [facility] AND [id number] 05:30:00 Test Item Value Reference Range Interpretation Comments UA Nitrite (test code Negative (09/17/15 11:30 = UA Nitrite) PM) [facility] AND [id number] 05:30:00 Test Item Value Reference Range Interpretation Comments UA WBC (test code = 16 See_Comment [Automa arvind message] The UA WBC) system which ge nerated this result transmit arvind reference range : <=5. The reference range was not used to interpr et this result as mario l/abnormal. [facility] [id number] 05:30:00 Test Item Value Reference Range Interpretation Comments UA RBC (test code = 5 See_Comment [Automa arvind message] The UA RBC) system which ge nerated this result transmit arvind reference range : <=2. The reference range was not used to interpr et this result as mario l/abnormal. [facility] AND [id number] 05:30:00 Test Item Value Reference Range Interpretation Comments UA Bili (test code = Negative *NA*(09/17/15 UA Bili) 11:30 PM) [facility] AND [id number] 05:30:00 Test Item Value Reference Range Interpretation Comments UA Blood (test code = Negative (09/17/15 11:30 UA Blood) PM) [facility] AND [id number] 05:30:00 Test Item Value Reference Range Interpretation Comments UA Glucose (test code = UA Negative mg/dL Glucose) [facility] AND [id number] 05:30:00 Test Item Value Reference Range Interpretation Comments UA Ketones (test code = UA Trace mg/dL Ketones) [facility] AND [id number] 05:30:00 Test Item Value Reference Range Interpretation Comments UA Protein (test code = UA Protein) 30 mg/dL [facility] AND [id number] 05:30:00 Test Item Value Reference Range Interpretation Comments UA pH (test code = UA pH) 5.0 5.0-8.0 [facility] AND [id number] 05:30:00 Test Item Value Reference Range Interpretation Comments UA Spec Grav (test code = UA Spec Grav) 1.030 [facility] AND [id number] 05:30:00 Test Item Value Reference Range Interpretation Comments UA Turbidity (test code Marked *ABN*(09/17/15 = UA Turbidity) 11:30 PM) [facility] [id number] 05:30:00 Test Item Value Reference Range Interpretation Comments U Preg (test code = U Negative (09/17/15 11:30 Preg) PM) [facility] AND [id number] 05:30:00 Test Item Value Reference Range Interpretation Comments UA Urobilinogen (test code = UA <=1.0 mg/dL 0.1-1.0 Urobilinogen) [facility] AND [id number] 05:30:00 Test Item Value Reference Range Interpretation Comments UA Color (test code = UA Color) Marry [facility] AND [id number] 05:30:00 Test Item Value Reference Range Interpretation Comments UA Bacteria (test code = UA Many /HPF Bacteria) [facility] AND [id number] 05:30:00 Test Item Value Reference Range Interpretation Comments UA Mucus (test code = UA Mucus) Many /LPF [facility] AND [id number] 05:30:00 Test Item Value Reference Range Interpretation Comments UA Leuk Est (test code Large *ABN*(09/17/15 = UA Leuk Est) 11:30 PM) [facility] AND [id number] 05:30:00 Test Item Value Reference Range Interpretation Comments UA Sq Epi (test code = UA Sq Epi) Many /LPF [facility] AND [id number] 05:30:00 Test Item Value Reference Range Interpretation Comments UA Nitrite (test code Negative (09/17/15 11:30 = UA Nitrite) PM) [facility] AND [id number] 05:30:00 Test Item Value Reference Range Interpretation Comments UA WBC (test code = 16 See_Comment [Automa arvind message] The UA WBC) system which ge nerated this result transmit arvind reference range : <=5. The reference range was not used to interpr et this result as mario l/abnormal. [facility] AND [id number] 05:30:00 Test Item Value Reference Range Interpretation Comments UA RBC (test code = 5 See_Comment [Automa arvind message] The UA RBC) system which ge nerated this result transmit arvind reference range : <=2. The reference range was not used to interpr et this result as mario l/abnormal. [facility] AND [id number] 05:30:00 Test Item Value Reference Range Interpretation Comments UA Bili (test code = Negative *NA*(09/17/15 UA Bili) 11:30 PM) [facility] AND [id number] 05:30:00 Test Item Value Reference Range Interpretation Comments UA Blood (test code = Negative (09/17/15 11:30 UA Blood) PM) [facility] AND [id number] 05:30:00 Test Item Value Reference Range Interpretation Comments UA Glucose (test code = UA Negative mg/dL Glucose) [facility] AND [id number] 05:30:00 Test Item Value Reference Range Interpretation Comments UA Ketones (test code = UA Trace mg/dL Ketones) [facility] AND [id number] 05:30:00 Test Item Value Reference Range Interpretation Comments UA Protein (test code = UA Protein) 30 mg/dL [facility] AND [id number] 05:30:00 Test Item Value Reference Range Interpretation Comments UA pH (test code = UA pH) 5.0 5.0-8.0 [facility] [id number] 05:30:00 Test Item Value Reference Range Interpretation Comments UA Spec Grav (test code = UA Spec Grav) 1.030 [facility] [id number] 05:30:00 Test Item Value Reference Range Interpretation Comments UA Turbidity (test code Marked *ABN*(09/17/15 = UA Turbidity) 11:30 PM) [facility] [id number] 05:30:00 Test Item Value Reference Range Interpretation Comments U Preg (test code = U Negative (09/17/15 11:30 Preg) PM) [facility] AND [id number] 05:30:00 Test Item Value Reference Range Interpretation Comments UA Urobilinogen (test code = UA <=1.0 mg/dL 0.1-1.0 Urobilinogen) [facility] [id number] 05:30:00 Test Item Value Reference Range Interpretation Comments UA Color (test code = UA Color) Marry [facility] AND [id number] 05:30:00 Test Item Value Reference Range Interpretation Comments UA Bacteria (test code = UA Many /HPF Bacteria) [facility] [id number] 05:30:00 Test Item Value Reference Range Interpretation Comments UA Mucus (test code = UA Mucus) Many /LPF [facility] AND [id number] 05:30:00 Test Item Value Reference Range Interpretation Comments UA Leuk Est (test code Large *ABN*(09/17/15 = UA Leuk Est) 11:30 PM) [facility] [id number] 05:30:00 Test Item Value Reference Range Interpretation Comments UA Sq Epi (test code = UA Sq Epi) Many /LPF [facility] AND [id number] 05:30:00 Test Item Value Reference Range Interpretation Comments UA Nitrite (test code Negative (09/17/15 11:30 = UA Nitrite) PM) [facility] [id number] 05:30:00 Test Item Value Reference Range Interpretation Comments UA WBC (test code = 16 See_Comment [Automa arvind message] The UA WBC) system which ge nerated this result transmit arvind reference range : <=5. The reference range was not used to interpr et this result as mario l/abnormal. [facility] AND [id number] 05:30:00 Test Item Value Reference Range Interpretation Comments UA RBC (test code = 5 See_Comment [Automa arvind message] The UA RBC) system which ge nerated this result transmit arvind reference range : <=2. The reference range was not used to interpr et this result as mario l/abnormal. [facility] AND [id number] 05:30:00 Test Item Value Reference Range Interpretation Comments UA Bili (test code = Negative *NA*(09/17/15 UA Bili) 11:30 PM) [facility] AND [id number] 05:30:00 Test Item Value Reference Range Interpretation Comments UA Blood (test code = Negative (09/17/15 11:30 UA Blood) PM) [facility] AND [id number] 05:30:00 Test Item Value Reference Range Interpretation Comments UA Glucose (test code = UA Negative mg/dL Glucose) [facility] AND [id number] 05:30:00 Test Item Value Reference Range Interpretation Comments UA Ketones (test code = UA Trace mg/dL Ketones) [facility] AND [id number] 05:30:00 Test Item Value Reference Range Interpretation Comments UA Protein (test code = UA Protein) 30 mg/dL [facility] AND [id number] 05:30:00 Test Item Value Reference Range Interpretation Comments UA pH (test code = UA pH) 5.0 5.0-8.0 [facility] AND [id number] 05:30:00 Test Item Value Reference Range Interpretation Comments UA Spec Grav (test code = UA Spec Grav) 1.030 [facility] AND [id number] 05:30:00 Test Item Value Reference Range Interpretation Comments UA Turbidity (test code Marked *ABN*(09/17/15 = UA Turbidity) 11:30 PM) [facility] [id number] 05:30:00 Test Item Value Reference Range Interpretation Comments U Preg (test code = U Negative (09/17/15 11:30 Preg) PM) [facility] AND [id number] 05:30:00 Test Item Value Reference Range Interpretation Comments UA Urobilinogen (test code = UA <=1.0 mg/dL 0.1-1.0 Urobilinogen) [facility] [id number] 05:30:00 Test Item Value Reference Range Interpretation Comments UA Color (test code = UA Color) Marry [facility] AND [id number] 05:30:00 Test Item Value Reference Range Interpretation Comments UA Bacteria (test code = UA Many /HPF Bacteria) [facility] [id number] 05:30:00 Test Item Value Reference Range Interpretation Comments UA Mucus (test code = UA Mucus) Many /LPF [facility] AND [id number] 05:30:00 Test Item Value Reference Range Interpretation Comments UA Leuk Est (test code Large *ABN*(09/17/15 = UA Leuk Est) 11:30 PM) [facility] AND [id number] 05:30:00 Test Item Value Reference Range Interpretation Comments UA Sq Epi (test code = UA Sq Epi) Many /LPF [facility] AND [id number] 05:30:00 Test Item Value Reference Range Interpretation Comments UA Nitrite (test code Negative (09/17/15 11:30 = UA Nitrite) PM) [facility] AND [id number] 05:30:00 Test Item Value Reference Range Interpretation Comments UA WBC (test code = 16 See_Comment [Automa arvind message] The UA WBC) system which ge nerated this result transmit arvind reference range : <=5. The reference range was not used to interpr et this result as mario l/abnormal. [facility] [id number] 05:30:00 Test Item Value Reference Range Interpretation Comments UA RBC (test code = 5 See_Comment [Automa arvind message] The UA RBC) system which ge nerated this result transmit arvind reference range : <=2. The reference range was not used to interpr et this result as mario l/abnormal. [facility] AND [id number] 05:30:00 Test Item Value Reference Range Interpretation Comments UA Bili (test code = Negative *NA*(09/17/15 UA Bili) 11:30 PM) [facility] AND [id number] 05:30:00 Test Item Value Reference Range Interpretation Comments UA Blood (test code = Negative (09/17/15 11:30 UA Blood) PM) [facility] AND [id number] 05:30:00 Test Item Value Reference Range Interpretation Comments UA Glucose (test code = UA Negative mg/dL Glucose) [facility] AND [id number] 05:30:00 Test Item Value Reference Range Interpretation Comments UA Ketones (test code = UA Trace mg/dL Ketones) [facility] AND [id number] 05:30:00 Test Item Value Reference Range Interpretation Comments UA Protein (test code = UA Protein) 30 mg/dL [facility] AND [id number] 05:30:00 Test Item Value Reference Range Interpretation Comments UA pH (test code = UA pH) 5.0 5.0-8.0 [facility] AND [id number] 05:30:00 Test Item Value Reference Range Interpretation Comments UA Spec Grav (test code = UA Spec Grav) 1.030 [facility] AND [id number] 05:30:00 Test Item Value Reference Range Interpretation Comments UA Turbidity (test code Marked *ABN*(09/17/15 = UA Turbidity) 11:30 PM) [facility] [id number] 05:30:00 Test Item Value Reference Range Interpretation Comments U Preg (test code = U Negative (09/17/15 11:30 Preg) PM) [facility] AND [id number] 05:30:00 Test Item Value Reference Range Interpretation Comments UA Urobilinogen (test code = UA <=1.0 mg/dL 0.1-1.0 Urobilinogen) [facility] AND [id number] 05:30:00 Test Item Value Reference Range Interpretation Comments UA Color (test code = UA Color) Marry [facility] AND [id number] 05:30:00 Test Item Value Reference Range Interpretation Comments UA Bacteria (test code = UA Many /HPF Bacteria) [facility] AND [id number] 05:30:00 Test Item Value Reference Range Interpretation Comments UA Mucus (test code = UA Mucus) Many /LPF [facility] AND [id number] 05:30:00 Test Item Value Reference Range Interpretation Comments UA Leuk Est (test code Large *ABN*(09/17/15 = UA Leuk Est) 11:30 PM) [facility] AND [id number] 05:30:00 Test Item Value Reference Range Interpretation Comments UA Sq Epi (test code = UA Sq Epi) Many /LPF [facility] AND [id number] 05:30:00 Test Item Value Reference Range Interpretation Comments UA Nitrite (test code Negative (09/17/15 11:30 = UA Nitrite) PM) [facility] AND [id number] 05:30:00 Test Item Value Reference Range Interpretation Comments UA WBC (test code = 16 See_Comment [Automa arvind message] The UA WBC) system which ge nerated this result transmit arvind reference range : <=5. The reference range was not used to interpr et this result as mario l/abnormal. [facility] AND [id number] 05:30:00 Test Item Value Reference Range Interpretation Comments UA RBC (test code = 5 See_Comment [Automa arvind message] The UA RBC) system which ge nerated this result transmit arvind reference range : <=2. The reference range was not used to interpr et this result as mario l/abnormal. [facility] AND [id number] 05:30:00 Test Item Value Reference Range Interpretation Comments UA Bili (test code = Negative *NA*(09/17/15 UA Bili) 11:30 PM) [facility] AND [id number] 05:30:00 Test Item Value Reference Range Interpretation Comments UA Blood (test code = Negative (09/17/15 11:30 UA Blood) PM) [facility] AND [id number] 05:30:00 Test Item Value Reference Range Interpretation Comments UA Glucose (test code = UA Negative mg/dL Glucose) [facility] AND [id number] 05:30:00 Test Item Value Reference Range Interpretation Comments UA Ketones (test code = UA Trace mg/dL Ketones) [facility] AND [id number] 05:30:00 Test Item Value Reference Range Interpretation Comments UA Protein (test code = UA Protein) 30 mg/dL [facility] AND [id number] 05:30:00 Test Item Value Reference Range Interpretation Comments UA pH (test code = UA pH) 5.0 5.0-8.0 [facility] [id number] 05:30:00 Test Item Value Reference Range Interpretation Comments UA Spec Grav (test code = UA Spec Grav) 1.030 [facility] [id number] 05:30:00 Test Item Value Reference Range Interpretation Comments UA Turbidity (test code Marked *ABN*(09/17/15 = UA Turbidity) 11:30 PM) [facility] [id number] 05:30:00 Test Item Value Reference Range Interpretation Comments U Preg (test code = U Negative (09/17/15 11:30 Preg) PM) [facility] AND [id number] 05:30:00 Test Item Value Reference Range Interpretation Comments UA Urobilinogen (test code = UA <=1.0 mg/dL 0.1-1.0 Urobilinogen) [facility] [id number] 05:30:00 Test Item Value Reference Range Interpretation Comments UA Color (test code = UA Color) [facility] [id number] 05:30:00 Test Item Value Reference Range Interpretation Comments UA Bacteria (test code = UA Many /HPF Bacteria) [facility] [id number] 05:30:00 Test Item Value Reference Range Interpretation Comments UA Mucus (test code = UA Mucus) Many /LPF [facility] [id number] 05:30:00 Test Item Value Reference Range Interpretation Comments UA Leuk Est (test code Large *ABN*(09/17/15 = UA Leuk Est) 11:30 PM) [facility] [id number] 05:30:00 Test Item Value Reference Range Interpretation Comments UA Sq Epi (test code = UA Sq Epi) Many /LPF [facility] [id number] 05:30:00 Test Item Value Reference Range Interpretation Comments UA Nitrite (test code Negative (09/17/15 11:30 = UA Nitrite) PM) [facility] [id number] 05:30:00 Test Item Value Reference Range Interpretation Comments UA WBC (test code = 16 See_Comment [Automa arvind message] The UA WBC) system which ge nerated this result transmit arvind reference range : <=5. The reference range was not used to interpr et this result as mario l/abnormal. [facility] [id number] 05:30:00 Test Item Value Reference Range Interpretation Comments UA RBC (test code = 5 See_Comment [Automa arvind message] The UA RBC) system which ge nerated this result transmit arvind reference range : <=2. The reference range was not used to interpr et this result as mario l/abnormal. [facility] AND [id number] 05:30:00 Test Item Value Reference Range Interpretation Comments UA Bili (test code = Negative *NA*(09/17/15 UA Bili) 11:30 PM) [facility] AND [id number] 05:30:00 Test Item Value Reference Range Interpretation Comments UA Blood (test code = Negative (09/17/15 11:30 UA Blood) PM) [facility] AND [id number] 05:30:00 Test Item Value Reference Range Interpretation Comments UA Glucose (test code = UA Negative mg/dL Glucose) [facility] AND [id number] 05:30:00 Test Item Value Reference Range Interpretation Comments UA Ketones (test code = UA Trace mg/dL Ketones) [facility] AND [id number] 05:30:00 Test Item Value Reference Range Interpretation Comments UA Protein (test code = UA Protein) 30 mg/dL [facility] AND [id number] 05:30:00 Test Item Value Reference Range Interpretation Comments UA pH (test code = UA pH) 5.0 5.0-8.0 [facility] AND [id number] 05:30:00 Test Item Value Reference Range Interpretation Comments UA Spec Grav (test code = UA Spec Grav) 1.030 [facility] AND [id number] 05:30:00 Test Item Value Reference Range Interpretation Comments UA Turbidity (test code Marked *ABN*(09/17/15 = UA Turbidity) 11:30 PM) [facility] [id number] 05:30:00 Test Item Value Reference Range Interpretation Comments U Preg (test code = U Negative (09/17/15 11:30 Preg) PM) [facility] AND [id number] 05:30:00 Test Item Value Reference Range Interpretation Comments UA Urobilinogen (test code = UA <=1.0 mg/dL 0.1-1.0 Urobilinogen) [facility] AND [id number] 05:30:00 Test Item Value Reference Range Interpretation Comments UA Color (test code = UA Color) Marry [facility] AND [id number] 05:30:00 Test Item Value Reference Range Interpretation Comments UA Bacteria (test code = UA Many /HPF Bacteria) [facility] AND [id number] 05:30:00 Test Item Value Reference Range Interpretation Comments UA Mucus (test code = UA Mucus) Many /LPF [facility] AND [id number] 05:30:00 Test Item Value Reference Range Interpretation Comments UA Leuk Est (test code Large *ABN*(09/17/15 = UA Leuk Est) 11:30 PM) [facility] AND [id number] 05:30:00 Test Item Value Reference Range Interpretation Comments UA Sq Epi (test code = UA Sq Epi) Many /LPF [facility] AND [id number] 05:30:00 Test Item Value Reference Range Interpretation Comments UA Nitrite (test code Negative (09/17/15 11:30 = UA Nitrite) PM) [facility] AND [id number] 05:30:00 Test Item Value Reference Range Interpretation Comments UA WBC (test code = 16 See_Comment [Automa arvind message] The UA WBC) system which ge nerated this result transmit arvind reference range : <=5. The reference range was not used to interpr et this result as mario l/abnormal. [facility] AND [id number] 05:30:00 Test Item Value Reference Range Interpretation Comments UA RBC (test code = 5 See_Comment [Automa arvind message] The UA RBC) system which ge nerated this result transmit arvind reference range : <=2. The reference range was not used to interpr et this result as mario l/abnormal. [facility] AND [id number] 05:30:00 Test Item Value Reference Range Interpretation Comments UA Bili (test code = Negative *NA*(09/17/15 UA Bili) 11:30 PM) [facility] AND [id number] 05:30:00 Test Item Value Reference Range Interpretation Comments UA Blood (test code = Negative (09/17/15 11:30 UA Blood) PM) [facility] AND [id number] 05:30:00 Test Item Value Reference Range Interpretation Comments UA Glucose (test code = UA Negative mg/dL Glucose) [facility] AND [id number] 05:30:00 Test Item Value Reference Range Interpretation Comments UA Ketones (test code = UA Trace mg/dL Ketones) [facility] AND [id number] 05:30:00 Test Item Value Reference Range Interpretation Comments UA Protein (test code = UA Protein) 30 mg/dL [facility] AND [id number] 05:30:00 Test Item Value Reference Range Interpretation Comments UA pH (test code = UA pH) 5.0 5.0-8.0 [facility] AND [id number] 05:30:00 Test Item Value Reference Range Interpretation Comments UA Spec Grav (test code = UA Spec Grav) 1.030 [facility] AND [id number] 05:30:00 Test Item Value Reference Range Interpretation Comments UA Turbidity (test code Marked *ABN*(09/17/15 = UA Turbidity) 11:30 PM) [facility] [id number] 05:30:00 Test Item Value Reference Range Interpretation Comments U Preg (test code = U Negative (09/17/15 11:30 Preg) PM) [facility] AND [id number] 05:30:00 Test Item Value Reference Range Interpretation Comments UA Urobilinogen (test code = UA <=1.0 mg/dL 0.1-1.0 Urobilinogen) [facility] AND [id number] 05:30:00 Test Item Value Reference Range Interpretation Comments UA Color (test code = UA Color) Marry [facility] AND [id number] 05:30:00 Test Item Value Reference Range Interpretation Comments UA Bacteria (test code = UA Many /HPF Bacteria) [facility] AND [id number] 05:30:00 Test Item Value Reference Range Interpretation Comments UA Mucus (test code = UA Mucus) Many /LPF [facility] AND [id number] 05:30:00 Test Item Value Reference Range Interpretation Comments UA Leuk Est (test code Large *ABN*(09/17/15 = UA Leuk Est) 11:30 PM) [facility] AND [id number] 05:30:00 Test Item Value Reference Range Interpretation Comments UA Sq Epi (test code = UA Sq Epi) Many /LPF [facility] AND [id number] 05:30:00 Test Item Value Reference Range Interpretation Comments UA Nitrite (test code Negative (09/17/15 11:30 = UA Nitrite) PM) [facility] AND [id number] 05:30:00 Test Item Value Reference Range Interpretation Comments UA WBC (test code = 16 See_Comment [Automa arvind message] The UA WBC) system which ge nerated this result transmit arvind reference range : <=5. The reference range was not used to interpr et this result as mario l/abnormal. [facility] AND [id number] 05:30:00 Test Item Value Reference Range Interpretation Comments UA RBC (test code = 5 See_Comment [Automa arvind message] The UA RBC) system which ge nerated this result transmit arvind reference range : <=2. The reference range was not used to interpr et this result as mario l/abnormal. [facility] AND [id number] 05:30:00 Test Item Value Reference Range Interpretation Comments UA Bili (test code = Negative *NA*(09/17/15 UA Bili) 11:30 PM) [facility] AND [id number] 05:30:00 Test Item Value Reference Range Interpretation Comments UA Blood (test code = Negative (09/17/15 11:30 UA Blood) PM) [facility] AND [id number] 05:30:00 Test Item Value Reference Range Interpretation Comments UA Glucose (test code = UA Negative mg/dL Glucose) [facility] AND [id number] 05:30:00 Test Item Value Reference Range Interpretation Comments UA Ketones (test code = UA Trace mg/dL Ketones) [facility] AND [id number] 05:30:00 Test Item Value Reference Range Interpretation Comments UA Protein (test code = UA Protein) 30 mg/dL [facility] AND [id number] 05:30:00 Test Item Value Reference Range Interpretation Comments UA pH (test code = UA pH) 5.0 5.0-8.0 [facility] [id number] 05:30:00 Test Item Value Reference Range Interpretation Comments UA Spec Grav (test code = UA Spec Grav) 1.030 [facility] [id number] 05:30:00 Test Item Value Reference Range Interpretation Comments UA Turbidity (test code Marked *ABN*(09/17/15 = UA Turbidity) 11:30 PM) [facility] [id number] 05:30:00 Test Item Value Reference Range Interpretation Comments U Preg (test code = U Negative (09/17/15 11:30 Preg) PM) [facility] MercatusCHEM [id number] 02:01:00 Test Item Value Reference Range Interpretation Comments Lipase Lvl (test code = Lipase Lvl) [address] [facility] [place] [id number] 02:01:00 Test Item Value Reference Range Interpretation Comments Amylase Lvl (test code = Amylase Lvl) 33 25-115 [facility] [id number] 02:01:00 Test Item Value Reference Range Interpretation Comments AGAP (test code = AGAP) 10.7 10.0-20.0 [facility] [id number] 02:01:00 Test Item Value Reference Range Interpretation Comments A/G Ratio (test code = A/G Ratio) 1.2 0.7-1.6 [facility] [id number] 02:01:00 Test Item Value Reference Range Interpretation Comments Globulin (test code = Globulin) 3.1 2.0-4.0 [facility] PwbffciOSNNNHPIYZOM0865-26-01 02:01:00 Test Item Value Reference Range Interpretation Comments B/C Ratio (test code = B/C Ratio) 13 6-25 [facility] WorthDkrkhceNNPDZSOFQSYM9003-49-53 02:01:00 Test Item Value Reference Range Interpretation Comments Total Protein (test code = Total 6.9 6.4-8.4 Protein) [facility] [id number] 02:01:00 Test Item Value Reference Range Interpretation Comments Calcium Lvl (test code = Calcium Lvl) 9.0 8.5-10.5 [facility] [id number] 02:01:00 Test Item Value Reference Range Interpretation Comments CO2 (test code = CO2) 26 24-32 [id number] 02:01:00 Test Item Value Reference Range Interpretation Comments eGFR (test code = eGFR) 110 [facility] HospitalFqfkgtiOCJQJYGCBVRY4022-54-56 02:01:00 Test Item Value Reference Range Interpretation Comments Bili Total (test code = Bili Total) 0.3 0.2-1.3 [facility] HospitalQdhpsidNTWUOVKIFANN0068-93-30 02:01:00 Test Item Value Reference Range Interpretation Comments Alk Phos (test code = Alk Phos) 84 39-136 [facility] Hosp[id number] 02:01:00 Test Item Value Reference Range Interpretation Comments AST (test code = AST) 17 See_Comment [Auto mated message] The system which ge nerated this result transmit arvind reference range : <=37. The reference range was not used to interpr et this result as mairo l/abnormal. [facility] HospitalDjpbzahJQSJJKEFBQZZ8613-56-55 02:01:00 Test Item Value Reference Range Interpretation Comments ALT (test code = ALT) 42 See_Comment [Auto mated message] The system which ge nerated this result transmit arvind reference range : <=65. The reference range was not used to interpr et this result as mario l/abnormal. [facility] Hosp[id number] 02:01:00 Test Item Value Reference Range Interpretation Comments Albumin Lvl (test code = Albumin Lvl) 3.8 3.5-5.0 [facility] Hos[id number] 02:01:00 Test Item Value Reference Range Interpretation Comments Sodium Lvl (test code = Sodium Lvl) 139 135-145 [facility] HospitalWwpdqwiJTFBAWRJGTPQ5183-52-78 02:01:00 Test Item Value Reference Range Interpretation Comments Chloride Lvl (test code = Chloride Lvl) 106 95-109 [facility] HospitalAsctuncMVLRBLCLCDIR8804-49-66 02:01:00 Test Item Value Reference Range Interpretation Comments Potassium Lvl (test code = Potassium 3.7 3.5-5.1 Lvl) [facility] Hos[id number] 02:01:00 Test Item Value Reference Range Interpretation Comments BUN (test code = BUN) 10 7-22 [facility] HospitalRrfzenkBPRWUYTILYXK7082-04-37 02:01:00 Test Item Value Reference Range Interpretation Comments Glucose Lvl (test code = Glucose Lvl) 88 70-99 [facility] Hospi[id number] 02:01:00 Test Item Value Reference Range Interpretation Comments Creatinine Lvl (test code = Creatinine 0.76 0.50-1.40 Lvl) [facility]UbcopkgDMACHILWNE8393-77-83 02:01:00 Test Item Value Reference Range Interpretation Comments Segs-Bands # (test code = Segs-Bands #) 5.4 1.5-8.1 [facility] HeightsIiaagwiXQLHNONTLM6372-58-17 02:01:00 Test Item Value Reference Range Interpretation Comments Basophils (test code = 1.0 See_Comment [Aut omated message] The Basophils) system which ge nerated this result tra nsmitted reference range : <=1.0. The reference r kat was not used to int erpret this result as normal/abnormal . [facility] HeightsKxygydvHJITVVNERE8436-43-33 02:01:00 Test Item Value Reference Range Interpretation Comments Monocytes # (test code 0.7 See_Comment [Aut omated message] The = Monocytes #) system which generated this result tra nsmitted reference range : <=0.8. The reference r kat was not used to int erpret this result as normal/abnormal . [facility] HeightsEdexfuaVDNMKEQOJG3786-79-68 02:01:00 Test Item Value Reference Range Interpretation Comments Lymphocytes (test code = Lymphocytes) 35.1 20.0-40.0 [facility] HeightsJcewiwaJOYKOIGSRX8934-55-15 02:01:00 Test Item Value Reference Range Interpretation Comments Lymphocytes # (test code = Lymphocytes 3.5 1.0-5.5 #) [facility] HeightsLqoefltJDSGYNZFNE0810-01-29 02:01:00 Test Item Value Reference Range Interpretation Comments Monocytes (test code = Monocytes) 6.7 2.0-12.0 [facility] HeightsLsigrwjIQGQIYCLJV5031-39-80 02:01:00 Test Item Value Reference Range Interpretation Comments Segs (test code = Segs) 54.8 45.0-75.0 [facility] HeightsOrtbewdKRASSGEEUF9867-80-56 02:01:00 Test Item Value Reference Range Interpretation Comments Eosinophils (test code = 2.4 See_Comment [A utomated message] The Eosinophils) system which ge nerated this result tra nsmitted reference range : <=4.0. The reference r kat was not used to int erpret this result as normal/abnormal . [facility] HeightsAnzqtnzBXFAEEHUAB4751-26-13 02:01:00 Test Item Value Reference Range Interpretation Comments Basophils # (test code 0.1 See_Comment [Aut omated message] The = Basophils #) system which generated this result tra nsmitted reference range : <=0.2. The reference r kat was not used to int erpret this result as normal/abnormal . [facility] HeightsOotdafxFRDJGAEZRN4433-76-65 02:01:00 Test Item Value Reference Range Interpretation Comments Microcyte (test code = 1+ *ABN*(09/17/15 Microcyte) 8:01 PM) [facility] HeightsZkewtkhHBLBRSBZTT4237-90-65 02:01:00 Test Item Value Reference Range Interpretation Comments Eosinophils # (test code 0.2 See_Comment [A utomated message] The = Eosinophils #) system whic h generated this result tra nsmitted reference range : <=0.5. The reference r kat was not used to int erpret this result as normal/abnormal . [facility] HeightsBrhgdrqEBZXCGWWCW3362-60-14 02:01:00 Test Item Value Reference Range Interpretation Comments MPV (test code = MPV) 10.0 7.4-10.4 [facility] HeightsHoasskhIEYREGHNMR5536-97-27 02:01:00 Test Item Value Reference Range Interpretation Comments RDW (test code = RDW) 16.9 11.5-14.5 [facility] HeightsCifvqqoOYBVCFBKMX0282-82-41 02:01:00 Test Item Value Reference Range Interpretation Comments Platelet (test code = Platelet) 208 133-450 [facility] HeightsJkoozdiGVCMAFYTJL0518-38-67 02:01:00 Test Item Value Reference Range Interpretation Comments MCV (test code = MCV) 77.9 80.0-98.0 [facility] HeightsAnizyjpPPADHCHJXH9128-36-99 02:01:00 Test Item Value Reference Range Interpretation Comments MCH (test code = MCH) 24.2 pg 27.0-31.0 [facility] HeightsRrqsszwZBHWQAJMLC2705-99-89 02:01:00 Test Item Value Reference Range Interpretation Comments MCHC (test code = MCHC) 31.1 32.0-36.0 [facility] HeightsIwyjuiwJGBBFLHCID8371-75-50 02:01:00 Test Item Value Reference Range Interpretation Comments Hgb (test code = Hgb) 13.3 12.0-16.0 [facility] HeightsYxzsstvBCYFQMTFWW5145-19-95 02:01:00 Test Item Value Reference Range Interpretation Comments Hct (test code = Hct) 42.6 36.0-48.0 [facility] HeightsKbdyflpXDFLUNCVVZ6227-31-45 02:01:00 Test Item Value Reference Range Interpretation Comments WBC (test code = WBC) 9.9 3.7-10.4 [facility] HeightsVuwyaqrCXHNBQKIAK4815-73-99 02:01:00 Test Item Value Reference Range Interpretation Comments RBC (test code = RBC) 5.47 4.20-5.40 [facility]2016-01-20 02:01:00 Test Item Value Reference Range Interpretation Comments Lipase Lvl (test code = Lipase Lvl) 196 [address]3393 [facility]2016-01-20 02:01:00 Test Item Value Reference Range Interpretation Comments Amylase Lvl (test code = Amylase Lvl) 33 25-115 [facility]KribzwvGIXZZFVLCPGY4310-14-64 02:01:00 Test Item Value Reference Range Interpretation Comments AGAP (test code = AGAP) 10.7 10.0-20.0 [facility] HospitalKtdbnsuWYBPIJCMUKAW3858-70-33 02:01:00 Test Item Value Reference Range Interpretation Comments A/G Ratio (test code = A/G Ratio) 1.2 0.7-1.6 [facility] HospitalOwpvqevPZUCIJGJADGK7668-51-30 02:01:00 Test Item Value Reference Range Interpretation Comments Globulin (test code = Globulin) 3.1 2.0-4.0 [facility] HospitalAfmctubNXGSNAWUWNNG5443-90-43 02:01:00 Test Item Value Reference Range Interpretation Comments B/C Ratio (test code = B/C Ratio) 13 6-25 [facility] HospitalKeaxftyFOARQXXTVPZH8454-91-90 02:01:00 Test Item Value Reference Range Interpretation Comments Total Protein (test code = Total 6.9 6.4-8.4 Protein) [facility] HospitalKowmnomQQLBOASARSTJ6065-01-20 02:01:00 Test Item Value Reference Range Interpretation Comments Calcium Lvl (test code = Calcium Lvl) 9.0 8.5-10.5 [facility] HospitalCmzsmbxYVTQENPYZCMR9167-08-61 02:01:00 Test Item Value Reference Range Interpretation Comments CO2 (test code = CO2) 26 24-32 [facility] HospitalOosgganHBQMOYARIDZE4569-44-83 02:01:00 Test Item Value Reference Range Interpretation Comments eGFR (test code = eGFR) 110 [facility] HospitalWdptegcLLTPOXVVJGNA6829-13-27 02:01:00 Test Item Value Reference Range Interpretation Comments Bili Total (test code = Bili Total) 0.3 0.2-1.3 [facility] HospitalPwtbyovOPYFVWYNXDVA2375-04-34 02:01:00 Test Item Value Reference Range Interpretation Comments Alk Phos (test code = Alk Phos) 84 39-136 [facility] HospitalWomwmanYILKLLABOPMS6238-02-59 02:01:00 Test Item Value Reference Range Interpretation Comments AST (test code = AST) 17 See_Comment [Auto mated message] The system which ge nerated this result transmit arivnd reference range : <=37. The reference range was not used to interpr et this result as mario l/abnormal. [facility]SgpzlnbXAJQOOUGOWRU3770-87-70 02:01:00 Test Item Value Reference Range Interpretation Comments ALT (test code = ALT) 42 See_Comment [Auto mated message] The system which ge nerated this result transmit arvind reference range : <=65. The reference range was not used to interpr et this result as mario l/abnormal. [facility] HospitalFdbrgzhLRNIHHQAPHNU2196-50-30 02:01:00 Test Item Value Reference Range Interpretation Comments Albumin Lvl (test code = Albumin Lvl) 3.8 3.5-5.0 [facility] HospitalCotigbuDMGQXJQRLPYF5254-84-08 02:01:00 Test Item Value Reference Range Interpretation Comments Sodium Lvl (test code = Sodium Lvl) 139 135-145 [facility] HospitalVfheyxuGPUEGCNZSPZG8797-63-84 02:01:00 Test Item Value Reference Range Interpretation Comments Chloride Lvl (test code = Chloride Lvl) 106 95-109 [facility] HospitalNputujkXSYRXQPCFKPT6056-07-66 02:01:00 Test Item Value Reference Range Interpretation Comments Potassium Lvl (test code = Potassium 3.7 3.5-5.1 Lvl) [facility] HospitalRlhwopmLZHMIZDUOYSR4561-93-26 02:01:00 Test Item Value Reference Range Interpretation Comments BUN (test code = BUN) 10 7-22 [facility] HospitalRucbskgLGGNGSMQIVSF4798-26-06 02:01:00 Test Item Value Reference Range Interpretation Comments Glucose Lvl (test code = Glucose Lvl) 88 70-99 [facility] HospitalFgmvagjFXGKHVJHELML7248-11-03 02:01:00 Test Item Value Reference Range Interpretation Comments Creatinine Lvl (test code = Creatinine 0.76 0.50-1.40 Lvl) [facility]EfisdyeYZBTMVLOUA0705-04-66 02:01:00 Test Item Value Reference Range Interpretation Comments Segs-Bands # (test code = Segs-Bands #) 5.4 1.5-8.1 [facility] HeightsIlkoucgCNPLCSYXKU8241-73-53 02:01:00 Test Item Value Reference Range Interpretation Comments Basophils (test code = 1.0 See_Comment [Aut omated message] The Basophils) system which ge nerated this result tra nsmitted reference range : <=1.0. The reference r kat was not used to int erpret this result as normal/abnormal . [facility] HeightsYjypqcvVXJFDQDSGZ6280-23-89 02:01:00 Test Item Value Reference Range Interpretation Comments Monocytes # (test code 0.7 See_Comment [Aut omated message] The = Monocytes #) system which generated this result tra nsmitted reference range : <=0.8. The reference r kat was not used to int erpret this result as normal/abnormal . [facility] HeightsXsywwfsRJXZOQJPPE4419-47-28 02:01:00 Test Item Value Reference Range Interpretation Comments Lymphocytes (test code = Lymphocytes) 35.1 20.0-40.0 [facility] HeightsYmstvngEIRNJONDOS4369-67-52 02:01:00 Test Item Value Reference Range Interpretation Comments Lymphocytes # (test code = Lymphocytes 3.5 1.0-5.5 #) [facility] HeightsGdjaixmTEGCPJYSFG3180-03-50 02:01:00 Test Item Value Reference Range Interpretation Comments Monocytes (test code = Monocytes) 6.7 2.0-12.0 [facility] HeightsRhlghqdGPNRFPALTI5850-87-18 02:01:00 Test Item Value Reference Range Interpretation Comments Segs (test code = Segs) 54.8 45.0-75.0 [facility] HeightsHfpjtszFBNOTASKUM5887-56-88 02:01:00 Test Item Value Reference Range Interpretation Comments Eosinophils (test code = 2.4 See_Comment [A utomated message] The Eosinophils) system which ge nerated this result tra nsmitted reference range : <=4.0. The reference r kat was not used to int erpret this result as normal/abnormal . [facility] HeightsPicqtndGECQSLKLMZ9626-75-60 02:01:00 Test Item Value Reference Range Interpretation Comments Basophils # (test code 0.1 See_Comment [Aut omated message] The = Basophils #) system which generated this result tra nsmitted reference range : <=0.2. The reference r kat was not used to int erpret this result as normal/abnormal . [facility] HeightsIpywahvWKORTBQGBF5709-70-91 02:01:00 Test Item Value Reference Range Interpretation Comments Microcyte (test code = 1+ *ABN*(09/17/15 Microcyte) 8:01 PM) [facility] HeightsYrrczllTEODJNQTLG6173-87-31 02:01:00 Test Item Value Reference Range Interpretation Comments Eosinophils # (test code 0.2 See_Comment [A utomated message] The = Eosinophils #) system whic h generated this result tra nsmitted reference range : <=0.5. The reference r kat was not used to int erpret this result as normal/abnormal . [facility] HeightsRpddefuIEDMRVZUQY7088-76-55 02:01:00 Test Item Value Reference Range Interpretation Comments MPV (test code = MPV) 10.0 7.4-10.4 [facility] HeightsJutrqonDGKAIGVNZD7946-50-70 02:01:00 Test Item Value Reference Range Interpretation Comments RDW (test code = RDW) 16.9 11.5-14.5 [facility] HeightsHphheitLGYEDSXYAV7426-70-33 02:01:00 Test Item Value Reference Range Interpretation Comments Platelet (test code = Platelet) 208 133-450 [facility] HeightsTqszepvTNMECVWHDB8683-87-98 02:01:00 Test Item Value Reference Range Interpretation Comments MCV (test code = MCV) 77.9 80.0-98.0 [facility] HeightsXvoikmrKCMJPOULWK3826-92-79 02:01:00 Test Item Value Reference Range Interpretation Comments MCH (test code = MCH) 24.2 pg 27.0-31.0 [facility] HeightsCysrzlvXKNPEABPOA2546-66-48 02:01:00 Test Item Value Reference Range Interpretation Comments MCHC (test code = MCHC) 31.1 32.0-36.0 [facility] HeightsLjlpdkzOYKVBOSCLE5973-30-73 02:01:00 Test Item Value Reference Range Interpretation Comments Hgb (test code = Hgb) 13.3 12.0-16.0 [facility] HeightsMsxzzvhLSBKCHVMBD4567-62-93 02:01:00 Test Item Value Reference Range Interpretation Comments Hct (test code = Hct) 42.6 36.0-48.0 [facility] HeightsLudtacbDTGUWMUMFY6403-55-76 02:01:00 Test Item Value Reference Range Interpretation Comments WBC (test code = WBC) 9.9 3.7-10.4 [facility] HeightsUdiqgpoLNLNYWIWNS4134-51-39 02:01:00 Test Item Value Reference Range Interpretation Comments RBC (test code = RBC) 5.47 4.20-5.40 [facility]2016-01-20 02:01:00 Test Item Value Reference Range Interpretation Comments Lipase Lvl (test code = Lipase Lvl) 196 [address]3393 [facility]2016-01-20 02:01:00 Test Item Value Reference Range Interpretation Comments Amylase Lvl (test code = Amylase Lvl) 33 25-115 [facility] HospitalWotfwgcARXFLVQRNRMK8242-54-38 02:01:00 Test Item Value Reference Range Interpretation Comments AGAP (test code = AGAP) 10.7 10.0-20.0 [facility] HospitalZbziyzpGFRBUXTHTYFZ9064-44-15 02:01:00 Test Item Value Reference Range Interpretation Comments A/G Ratio (test code = A/G Ratio) 1.2 0.7-1.6 [facility] HospitalWdsswpePRGIFEDSUEAN3553-63-20 02:01:00 Test Item Value Reference Range Interpretation Comments Globulin (test code = Globulin) 3.1 2.0-4.0 [facility] HospitalFkfeijgPODBQVONVNNG0682-70-43 02:01:00 Test Item Value Reference Range Interpretation Comments B/C Ratio (test code = B/C Ratio) 13 6-25 [facility] HospitalFwwfwvqCFDNJHVISCBX7039-35-79 02:01:00 Test Item Value Reference Range Interpretation Comments Total Protein (test code = Total 6.9 6.4-8.4 Protein) [facility] HospitalDiplhcyHYHRLSYSUHAY1613-22-30 02:01:00 Test Item Value Reference Range Interpretation Comments Calcium Lvl (test code = Calcium Lvl) 9.0 8.5-10.5 [facility] HospitalMeffzibTDSBSSJXCAZB1844-82-66 02:01:00 Test Item Value Reference Range Interpretation Comments CO2 (test code = CO2) 26 24-32 [facility] HospitalMxviulzYPNPFDKIZRSF8861-98-81 02:01:00 Test Item Value Reference Range Interpretation Comments eGFR (test code = eGFR) 110 [facility] HospitalTrjpsudCJNVLTPWXZSL1033-84-76 02:01:00 Test Item Value Reference Range Interpretation Comments Bili Total (test code = Bili Total) 0.3 0.2-1.3 [facility] HospitalKgsrnznRWWAQEEZKFNM6150-13-76 02:01:00 Test Item Value Reference Range Interpretation Comments Alk Phos (test code = Alk Phos) 84 39-136 [facility] HospitalJvtpkygMXVLUJWKXFEB6165-48-84 02:01:00 Test Item Value Reference Range Interpretation Comments AST (test code = AST) 17 See_Comment [Auto mated message] The system which ge nerated this result transmit arvind reference range : <=37. The reference range was not used to interpr et this result as mario l/abnormal. [facility] HospitalSrvlpslDJPCIEIMAMWR2955-12-32 02:01:00 Test Item Value Reference Range Interpretation Comments ALT (test code = ALT) 42 See_Comment [Auto mated message] The system which ge nerated this result transmit arvind reference range : <=65. The reference range was not used to interpr et this result as mario l/abnormal. [facility] HospitalHerttdyUNLZXRSDGJLW6770-42-70 02:01:00 Test Item Value Reference Range Interpretation Comments Albumin Lvl (test code = Albumin Lvl) 3.8 3.5-5.0 [facility] HospitalEudtbwmZPGMZFNRAHNS8086-47-38 02:01:00 Test Item Value Reference Range Interpretation Comments Sodium Lvl (test code = Sodium Lvl) 139 135-145 [facility] HospitalNrstrrmXDAIIUOBGIDF9058-30-73 02:01:00 Test Item Value Reference Range Interpretation Comments Chloride Lvl (test code = Chloride Lvl) 106 95-109 [facility] HospitalErgjhujTQUXVRGZFHFN4089-10-60 02:01:00 Test Item Value Reference Range Interpretation Comments Potassium Lvl (test code = Potassium 3.7 3.5-5.1 Lvl) [facility] HospitalTvskvrxCMRALHQDFXNK6754-84-39 02:01:00 Test Item Value Reference Range Interpretation Comments BUN (test code = BUN) 10 7-22 [facility] HospitalParpeulQZBJSJSFMZXD4260-88-68 02:01:00 Test Item Value Reference Range Interpretation Comments Glucose Lvl (test code = Glucose Lvl) 88 70-99 [facility]IlvlvoxGMBMCLFHYOUE2942-52-01 02:01:00 Test Item Value Reference Range Interpretation Comments Creatinine Lvl (test code = Creatinine 0.76 0.50-1.40 Lvl) [facility] HeightsOsstbpxYEDHYKFAKT4539-17-48 02:01:00 Test Item Value Reference Range Interpretation Comments Segs-Bands # (test code = Segs-Bands #) 5.4 1.5-8.1 [facility] HeightsCicvezfXVLRJHSAUE0450-51-78 02:01:00 Test Item Value Reference Range Interpretation Comments Basophils (test code = 1.0 See_Comment [Aut omated message] The Basophils) system which ge nerated this result tra nsmitted reference range : <=1.0. The reference r kat was not used to int erpret this result as normal/abnormal . [facility] HeightsNbuhwqpBENFJJJDYZ1042-62-75 02:01:00 Test Item Value Reference Range Interpretation Comments Monocytes # (test code 0.7 See_Comment [Aut omated message] The = Monocytes #) system which generated this result tra nsmitted reference range : <=0.8. The reference r kat was not used to int erpret this result as normal/abnormal . [facility] HeightsZqonutvWTXUKHDFDZ0819-43-65 02:01:00 Test Item Value Reference Range Interpretation Comments Lymphocytes (test code = Lymphocytes) 35.1 20.0-40.0 [facility] HeightsUchacyfVIRWBZHFYQ5149-53-30 02:01:00 Test Item Value Reference Range Interpretation Comments Lymphocytes # (test code = Lymphocytes 3.5 1.0-5.5 #) [facility] HeightsVbexcrbCLWAJFPOEN0643-78-88 02:01:00 Test Item Value Reference Range Interpretation Comments Monocytes (test code = Monocytes) 6.7 2.0-12.0 [facility] HeightsGnweljgNUPEVMCGII4662-86-64 02:01:00 Test Item Value Reference Range Interpretation Comments Segs (test code = Segs) 54.8 45.0-75.0 [facility] HeightsVjydpboEIBBDTRZIE4971-67-90 02:01:00 Test Item Value Reference Range Interpretation Comments Eosinophils (test code = 2.4 See_Comment [A utomated message] The Eosinophils) system which ge nerated this result tra nsmitted reference range : <=4.0. The reference r kat was not used to int erpret this result as normal/abnormal . [facility] HeightsQqywemsKQMVDXTVYE5457-30-24 02:01:00 Test Item Value Reference Range Interpretation Comments Basophils # (test code 0.1 See_Comment [Aut omated message] The = Basophils #) system which generated this result tra nsmitted reference range : <=0.2. The reference r kat was not used to int erpret this result as normal/abnormal . [facility] HeightsDfzprhpFHOOSCGHKP6181-92-51 02:01:00 Test Item Value Reference Range Interpretation Comments Microcyte (test code = 1+ *ABN*(09/17/15 Microcyte) 8:01 PM) [facility] HeightsMpwbdebNSUDVXLISY2019-19-69 02:01:00 Test Item Value Reference Range Interpretation Comments Eosinophils # (test code 0.2 See_Comment [A utomated message] The = Eosinophils #) system whic h generated this result tra nsmitted reference range : <=0.5. The reference r kat was not used to int erpret this result as normal/abnormal . [facility] HeightsQlkbzlqVZKEUFBJCE6672-48-24 02:01:00 Test Item Value Reference Range Interpretation Comments MPV (test code = MPV) 10.0 7.4-10.4 [facility] HeightsAyiiuxgTWQQJJFAPN0941-95-79 02:01:00 Test Item Value Reference Range Interpretation Comments RDW (test code = RDW) 16.9 11.5-14.5 [facility] HeightsWruvspjMVDCDLTVZH6339-05-90 02:01:00 Test Item Value Reference Range Interpretation Comments Platelet (test code = Platelet) 208 133-450 [facility] HeightsYjzxsziYAKWOKVTLE9053-21-64 02:01:00 Test Item Value Reference Range Interpretation Comments MCV (test code = MCV) 77.9 80.0-98.0 [facility] HeightsBkvhgwrVJFCSZFZDA6210-23-76 02:01:00 Test Item Value Reference Range Interpretation Comments MCH (test code = MCH) 24.2 pg 27.0-31.0 [facility] HeightsGinnlsyXPTEWCTWVQ5948-26-38 02:01:00 Test Item Value Reference Range Interpretation Comments MCHC (test code = MCHC) 31.1 32.0-36.0 [facility] HeightsUlpdothMYZUJXIMOU4947-31-39 02:01:00 Test Item Value Reference Range Interpretation Comments Hgb (test code = Hgb) 13.3 12.0-16.0 [facility] HeightsPthnujwCDWMBGGJOF8075-64-57 02:01:00 Test Item Value Reference Range Interpretation Comments Hct (test code = Hct) 42.6 36.0-48.0 [facility] HeightsYawiknyIYUUYMVKUF4462-56-98 02:01:00 Test Item Value Reference Range Interpretation Comments WBC (test code = WBC) 9.9 3.7-10.4 [facility] HeightsEpmkjsmPRYGFOCJMC1544-65-91 02:01:00 Test Item Value Reference Range Interpretation Comments RBC (test code = RBC) 5.47 4.20-5.40 [facility]2016-01-20 02:01:00 Test Item Value Reference Range Interpretation Comments Lipase Lvl (test code = Lipase Lvl) 196 73393 [facility]2016-01-20 02:01:00 Test Item Value Reference Range Interpretation Comments Amylase Lvl (test code = Amylase Lvl) 33 25-115 [facility]FifofqkOQXMHRXWSHCG0285-91-33 02:01:00 Test Item Value Reference Range Interpretation Comments AGAP (test code = AGAP) 10.7 10.0-20.0 [facility] HospitalPafqhryJAXRZFDPTTFF3501-33-75 02:01:00 Test Item Value Reference Range Interpretation Comments A/G Ratio (test code = A/G Ratio) 1.2 0.7-1.6 [facility] HospitalKftpdspBABOMEIJAOFA6485-38-06 02:01:00 Test Item Value Reference Range Interpretation Comments Globulin (test code = Globulin) 3.1 2.0-4.0 [facility] HospitalAzuvizpLACIQJZIPMKF9770-33-35 02:01:00 Test Item Value Reference Range Interpretation Comments B/C Ratio (test code = B/C Ratio) 13 6-25 [facility] HospitalEoltsztHMUSIUKIIGRY3532-63-64 02:01:00 Test Item Value Reference Range Interpretation Comments Total Protein (test code = Total 6.9 6.4-8.4 Protein) [facility] HospitalTxqnriiCWHDHPXEDNFV1430-76-76 02:01:00 Test Item Value Reference Range Interpretation Comments Calcium Lvl (test code = Calcium Lvl) 9.0 8.5-10.5 [facility] HospitalUvaiqimBFFQFGODBWMI4121-70-66 02:01:00 Test Item Value Reference Range Interpretation Comments CO2 (test code = CO2) 26 24-32 [facility] HospitalGltzcfcTQWVHCDYTGJE4293-72-08 02:01:00 Test Item Value Reference Range Interpretation Comments eGFR (test code = eGFR) 110 [facility] HospitalKuevmfnVWXRLIVUBGXL9274-52-14 02:01:00 Test Item Value Reference Range Interpretation Comments Bili Total (test code = Bili Total) 0.3 0.2-1.3 [facility] HospitalApqlwfjELPFMACATQWI0736-98-31 02:01:00 Test Item Value Reference Range Interpretation Comments Alk Phos (test code = Alk Phos) 84 39-136 [facility] HospitalVsjuwszZAZNWOFMITEP0725-69-14 02:01:00 Test Item Value Reference Range Interpretation Comments AST (test code = AST) 17 See_Comment [Auto mated message] The system which ge nerated this result transmit arvind reference range : <=37. The reference range was not used to interpr et this result as mario l/abnormal. [facility] HospitalAasewqwDYQAIGFQZSXX4607-55-13 02:01:00 Test Item Value Reference Range Interpretation Comments ALT (test code = ALT) 42 See_Comment [Auto mated message] The system which ge nerated this result transmit arvind reference range : <=65. The reference range was not used to interpr et this result as mario l/abnormal. [facility] HospitalNkmtyjeGVEPVXLRRWVR0536-96-02 02:01:00 Test Item Value Reference Range Interpretation Comments Albumin Lvl (test code = Albumin Lvl) 3.8 3.5-5.0 [facility] HospitalQhdzhinZBODKPKGZRPF3514-61-82 02:01:00 Test Item Value Reference Range Interpretation Comments Sodium Lvl (test code = Sodium Lvl) 139 135-145 [facility] HospitalLrarggdTFZDSEHRQJBC6610-03-92 02:01:00 Test Item Value Reference Range Interpretation Comments Chloride Lvl (test code = Chloride Lvl) 106 95-109 [facility] HospitalFhrnirnOLRPHCPSXBRB7226-40-65 02:01:00 Test Item Value Reference Range Interpretation Comments Potassium Lvl (test code = Potassium 3.7 3.5-5.1 Lvl) [facility] HospitalEjnpvnwMXZJCSZCUEIY5483-58-00 02:01:00 Test Item Value Reference Range Interpretation Comments BUN (test code = BUN) 10 7-22 [facility] HospitalNlispifBVVJBIUMZYFP3207-49-19 02:01:00 Test Item Value Reference Range Interpretation Comments Glucose Lvl (test code = Glucose Lvl) 88 70-99 [facility] WorthOnixhxtLFIUKHRMYOAY1259-96-51 02:01:00 Test Item Value Reference Range Interpretation Comments Creatinine Lvl (test code = Creatinine 0.76 0.50-1.40 Lvl) [facility] HeightsYioplgkHDSTDLOZOM5603-93-81 02:01:00 Test Item Value Reference Range Interpretation Comments Segs-Bands # (test code = Segs-Bands #) 5.4 1.5-8.1 [facility] HeightsTwaamgyWOEMGBPQRT9002-37-49 02:01:00 Test Item Value Reference Range Interpretation Comments Basophils (test code = 1.0 See_Comment [Aut omated message] The Basophils) system which ge nerated this result tra nsmitted reference range : <=1.0. The reference r kat was not used to int erpret this result as normal/abnormal . [facility] HeightsYyvrcxzZLHDVTFHFQ5200-04-32 02:01:00 Test Item Value Reference Range Interpretation Comments Monocytes # (test code 0.7 See_Comment [Aut omated message] The = Monocytes #) system which generated this result tra nsmitted reference range : <=0.8. The reference r kat was not used to int erpret this result as normal/abnormal . [facility] HeightsMqslajbUJIBBUILQK0480-53-82 02:01:00 Test Item Value Reference Range Interpretation Comments Lymphocytes (test code = Lymphocytes) 35.1 20.0-40.0 [facility] HeightsZcqfhxpYCUHRUHIYQ8462-92-11 02:01:00 Test Item Value Reference Range Interpretation Comments Lymphocytes # (test code = Lymphocytes 3.5 1.0-5.5 #) [facility] HeightsDvjgarnOHUNNMQNUF1555-57-58 02:01:00 Test Item Value Reference Range Interpretation Comments Monocytes (test code = Monocytes) 6.7 2.0-12.0 [facility] HeightsOcbgqigKFENUHSJYN5106-60-35 02:01:00 Test Item Value Reference Range Interpretation Comments Segs (test code = Segs) 54.8 45.0-75.0 [facility] HeightsMxprmvnATQSSHRRNP3479-88-42 02:01:00 Test Item Value Reference Range Interpretation Comments Eosinophils (test code = 2.4 See_Comment [A utomated message] The Eosinophils) system which ge nerated this result tra nsmitted reference range : <=4.0. The reference r kat was not used to int erpret this result as normal/abnormal . [facility] HeightsTugtadhCAFRVPLZDU4128-31-09 02:01:00 Test Item Value Reference Range Interpretation Comments Basophils # (test code 0.1 See_Comment [Aut omated message] The = Basophils #) system which generated this result tra nsmitted reference range : <=0.2. The reference r kat was not used to int erpret this result as normal/abnormal . [facility] HeightsZjmgltzCKOIYTTTKV7698-00-07 02:01:00 Test Item Value Reference Range Interpretation Comments Microcyte (test code = 1+ *ABN*(09/17/15 Microcyte) 8:01 PM) [facility] HeightsSpiwlxuOPMHWOOKPH8397-41-36 02:01:00 Test Item Value Reference Range Interpretation Comments Eosinophils # (test code 0.2 See_Comment [A utomated message] The = Eosinophils #) system whic h generated this result tra nsmitted reference range : <=0.5. The reference r kat was not used to int erpret this result as normal/abnormal . [facility] HeightsDpxaniqHSNDKUMJBM6231-16-00 02:01:00 Test Item Value Reference Range Interpretation Comments MPV (test code = MPV) 10.0 7.4-10.4 [facility] HeightsKoqshhpLXICKEQETR8003-06-36 02:01:00 Test Item Value Reference Range Interpretation Comments RDW (test code = RDW) 16.9 11.5-14.5 [facility] HeightsAzasslnNHVOSTFIOV5435-89-67 02:01:00 Test Item Value Reference Range Interpretation Comments Platelet (test code = Platelet) 208 133-450 [facility] HeightsVhlmoxlWDHTFGULWL8404-46-02 02:01:00 Test Item Value Reference Range Interpretation Comments MCV (test code = MCV) 77.9 80.0-98.0 [facility] HeightsEqkvlywVGXBZZIPKG4048-99-94 02:01:00 Test Item Value Reference Range Interpretation Comments MCH (test code = MCH) 24.2 pg 27.0-31.0 [facility] HeightsWbtxlyjULEDFOQNZF9835-16-86 02:01:00 Test Item Value Reference Range Interpretation Comments MCHC (test code = MCHC) 31.1 32.0-36.0 [facility] HeightsQfgdsmlRRVKXNARUL0183-06-72 02:01:00 Test Item Value Reference Range Interpretation Comments Hgb (test code = Hgb) 13.3 12.0-16.0 [facility] HeightsStzwvicLNGUATIQDB6731-73-19 02:01:00 Test Item Value Reference Range Interpretation Comments Hct (test code = Hct) 42.6 36.0-48.0 [facility] HeightsAopljeqXXJVYFNVXD2315-33-87 02:01:00 Test Item Value Reference Range Interpretation Comments WBC (test code = WBC) 9.9 3.7-10.4 [facility] HeightsKzvqetiOZMQQYWPYI5240-21-74 02:01:00 Test Item Value Reference Range Interpretation Comments RBC (test code = RBC) 5.47 4.20-5.40 [facility]2016-01-20 02:01:00 Test Item Value Reference Range Interpretation Comments Lipase Lvl (test code = Lipase Lvl) 196 73393 [facility]2016-01-20 02:01:00 Test Item Value Reference Range Interpretation Comments Amylase Lvl (test code = Amylase Lvl) 33 25-115 [facility]VcxjlolRWCPKKYHLHKY6270-39-80 02:01:00 Test Item Value Reference Range Interpretation Comments AGAP (test code = AGAP) 10.7 10.0-20.0 [facility] HospitalKfxxugoXWEQKOKFKZEK9664-35-04 02:01:00 Test Item Value Reference Range Interpretation Comments A/G Ratio (test code = A/G Ratio) 1.2 0.7-1.6 [facility] HospitalCuuuutnPOWORCRZMSKW6965-66-40 02:01:00 Test Item Value Reference Range Interpretation Comments Globulin (test code = Globulin) 3.1 2.0-4.0 [facility] HospitalXuhnobqHFLVOZGWFLDY2127-18-23 02:01:00 Test Item Value Reference Range Interpretation Comments B/C Ratio (test code = B/C Ratio) 13 6-25 [facility] HospitalWfnsozkQMKXVWSIKDHN1542-15-22 02:01:00 Test Item Value Reference Range Interpretation Comments Total Protein (test code = Total 6.9 6.4-8.4 Protein) [facility] HospitalRdzcgryBAOCNVYBERDY6455-07-80 02:01:00 Test Item Value Reference Range Interpretation Comments Calcium Lvl (test code = Calcium Lvl) 9.0 8.5-10.5 [facility] HospitalIsskkztQMAFXFSLVAXY3804-55-52 02:01:00 Test Item Value Reference Range Interpretation Comments CO2 (test code = CO2) 26 24-32 [facility] HospitalTbmmomyYKEQBXLJQDOZ1082-39-73 02:01:00 Test Item Value Reference Range Interpretation Comments eGFR (test code = eGFR) 110 [facility]GgqkgssJPLBXBDFIIWY5589-64-99 02:01:00 Test Item Value Reference Range Interpretation Comments Bili Total (test code = Bili Total) 0.3 0.2-1.3 [facility] HospitalJgjlzntWADFPIXDNDUC2217-65-83 02:01:00 Test Item Value Reference Range Interpretation Comments Alk Phos (test code = Alk Phos) 84 39-136 [facility] HospitalAzvxdbsFXOYBSXIZOVU1230-75-96 02:01:00 Test Item Value Reference Range Interpretation Comments AST (test code = AST) 17 See_Comment [Auto mated message] The system which ge nerated this result transmit arvind reference range : <=37. The reference range was not used to interpr et this result as mario l/abnormal. [facility] HospitalTdgvacyQPSNEOWAEXNN9405-32-40 02:01:00 Test Item Value Reference Range Interpretation Comments ALT (test code = ALT) 42 See_Comment [Auto mated message] The system which ge nerated this result transmit arvind reference range : <=65. The reference range was not used to interpr et this result as mario l/abnormal. [facility] HospitalNotonyeEIUHWWXBUENE1656-03-81 02:01:00 Test Item Value Reference Range Interpretation Comments Albumin Lvl (test code = Albumin Lvl) 3.8 3.5-5.0 [facility]IkvbkjoVNVYNDTWKJAG6821-89-95 02:01:00 Test Item Value Reference Range Interpretation Comments Sodium Lvl (test code = Sodium Lvl) 139 135-145 [facility] HospitalYmsinloIZUGMOLHZQEH3098-98-54 02:01:00 Test Item Value Reference Range Interpretation Comments Chloride Lvl (test code = Chloride Lvl) 106 95-109 [facility] HospitalRhdvquuBMYRZAEWWPVK5527-09-04 02:01:00 Test Item Value Reference Range Interpretation Comments Potassium Lvl (test code = Potassium 3.7 3.5-5.1 Lvl) [facility] HospitalYkftqigBLNOKBLATDOY4475-58-42 02:01:00 Test Item Value Reference Range Interpretation Comments BUN (test code = BUN) 10 7-22 [facility] HospitalPxsvvyxCGWDJPYOOULK2232-18-61 02:01:00 Test Item Value Reference Range Interpretation Comments Glucose Lvl (test code = Glucose Lvl) 88 70-99 [facility]YjmvpudZRCFPPTKMIRT4055-23-10 02:01:00 Test Item Value Reference Range Interpretation Comments Creatinine Lvl (test code = Creatinine 0.76 0.50-1.40 Lvl) [facility]MqdkghqXHOEEVOBTO3446-18-46 02:01:00 Test Item Value Reference Range Interpretation Comments Segs-Bands # (test code = Segs-Bands #) 5.4 1.5-8.1 [facility] HeightsRpzrotlYTSNVSIXJK6423-24-49 02:01:00 Test Item Value Reference Range Interpretation Comments Basophils (test code = 1.0 See_Comment [Aut omated message] The Basophils) system which ge nerated this result tra nsmitted reference range : <=1.0. The reference r kat was not used to int erpret this result as normal/abnormal . [facility] HeightsShipkinZBWHDYZLWC0698-75-84 02:01:00 Test Item Value Reference Range Interpretation Comments Monocytes # (test code 0.7 See_Comment [Aut omated message] The = Monocytes #) system which generated this result tra nsmitted reference range : <=0.8. The reference r kat was not used to int erpret this result as normal/abnormal . [facility] HeightsDdyyroyJGRJYDSUWY7584-80-19 02:01:00 Test Item Value Reference Range Interpretation Comments Lymphocytes (test code = Lymphocytes) 35.1 20.0-40.0 [facility] HeightsDcstqiiBJAASRPBQU9184-19-58 02:01:00 Test Item Value Reference Range Interpretation Comments Lymphocytes # (test code = Lymphocytes 3.5 1.0-5.5 #) [facility] HeightsMokuvwtIHDSHWOJUO7921-38-77 02:01:00 Test Item Value Reference Range Interpretation Comments Monocytes (test code = Monocytes) 6.7 2.0-12.0 [facility] HeightsHvxdiqzRPXEFUUVYN0931-89-90 02:01:00 Test Item Value Reference Range Interpretation Comments Segs (test code = Segs) 54.8 45.0-75.0 [facility] HeightsCuhrjsdKEHARMXMRV2699-09-52 02:01:00 Test Item Value Reference Range Interpretation Comments Eosinophils (test code = 2.4 See_Comment [A utomated message] The Eosinophils) system which ge nerated this result tra nsmitted reference range : <=4.0. The reference r kat was not used to int erpret this result as normal/abnormal . [facility] HeightsMmqttbaWMMOMFGRRC7692-40-65 02:01:00 Test Item Value Reference Range Interpretation Comments Basophils # (test code 0.1 See_Comment [Aut omated message] The = Basophils #) system which generated this result tra nsmitted reference range : <=0.2. The reference r kat was not used to int erpret this result as normal/abnormal . [facility] HeightsLjncuubOYJAQVKRRF4296-93-34 02:01:00 Test Item Value Reference Range Interpretation Comments Microcyte (test code = 1+ *ABN*(09/17/15 Microcyte) 8:01 PM) [facility] HeightsCbxwuqgHARJTASKVB6214-86-34 02:01:00 Test Item Value Reference Range Interpretation Comments Eosinophils # (test code 0.2 See_Comment [A utomated message] The = Eosinophils #) system whic h generated this result tra nsmitted reference range : <=0.5. The reference r kat was not used to int erpret this result as normal/abnormal . [facility] GZVPC8673[facility] 02:01:00 Test Item Value Reference Range Interpretation Comments Lipase Lvl (test code = Lipase Lvl) 196 73-393 [facility] CXHBR3992-90-65 02:01:00 Test Item Value Reference Range Interpretation Comments Amylase Lvl (test code = Amylase Lvl) 33 25-115 [facility] HospitalRnkklbmMKDKNMCIZNAJ9032-17-91 02:01:00 Test Item Value Reference Range Interpretation Comments AGAP (test code = AGAP) 10.7 10.0-20.0 [facility] HospitalUyodjrrUTUZQGNVCTOU3879-48-68 02:01:00 Test Item Value Reference Range Interpretation Comments A/G Ratio (test code = A/G Ratio) 1.2 0.7-1.6 [facility] HospitalLgmxaitAJKADSAYFPEJ8069-81-76 02:01:00 Test Item Value Reference Range Interpretation Comments Globulin (test code = Globulin) 3.1 2.0-4.0 [facility] HospitalSdlpkaaAZSHHYZQVNAO2883-36-12 02:01:00 Test Item Value Reference Range Interpretation Comments B/C Ratio (test code = B/C Ratio) 13 6-25 [facility] HospitalPtktybaDYRLFDJKNEJS1952-05-74 02:01:00 Test Item Value Reference Range Interpretation Comments Total Protein (test code = Total 6.9 6.4-8.4 Protein) [facility] HospitalMbboismBAJCEQGXZSRI3137-07-44 02:01:00 Test Item Value Reference Range Interpretation Comments Calcium Lvl (test code = Calcium Lvl) 9.0 8.5-10.5 [facility]NeugepnZCHGHCFZVL2976-08-77 02:01:00 Test Item Value Reference Range Interpretation Comments MPV (test code = MPV) 10.0 7.4-10.4 [facility] HospitalQqwpasjZQVLXYBKHFGP2110-11-00 02:01:00 Test Item Value Reference Range Interpretation Comments CO2 (test code = CO2) 26 24-32 [facility] HospitalSeuawgjRNHSNVQUEPYG2285-55-96 02:01:00 Test Item Value Reference Range Interpretation Comments eGFR (test code = eGFR) 110 [facility] HospitalQgbwkhyMKCKAVVMSHVE7138-04-10 02:01:00 Test Item Value Reference Range Interpretation Comments Bili Total (test code = Bili Total) 0.3 0.2-1.3 [facility] HospitalXviireyLIKSFVWXGVFE5467-68-46 02:01:00 Test Item Value Reference Range Interpretation Comments Alk Phos (test code = Alk Phos) 84 39-136 [facility] HospitalHgvgbiwBDTLMRUWMZOE0689-11-41 02:01:00 Test Item Value Reference Range Interpretation Comments AST (test code = AST) 17 See_Comment [Auto mated message] The system which ge nerated this result transmit arvind reference range : <=37. The reference range was not used to interpr et this result as mario l/abnormal. [facility] HospitalEorpmsnTUJQZVULMGSC1427-14-09 02:01:00 Test Item Value Reference Range Interpretation Comments ALT (test code = ALT) 42 See_Comment [Auto mated message] The system which ge nerated this result transmit arvind reference range : <=65. The reference range was not used to interpr et this result as mario l/abnormal. [facility] HospitalFtzvejkDRPQLDRZHZKQ8859-38-46 02:01:00 Test Item Value Reference Range Interpretation Comments Albumin Lvl (test code = Albumin Lvl) 3.8 3.5-5.0 [facility] HospitalSfsepvcQNFGNHDCTXFY9199-31-63 02:01:00 Test Item Value Reference Range Interpretation Comments Sodium Lvl (test code = Sodium Lvl) 139 135-145 [facility] HospitalXusmfmiLNKLZMDOUHBW5768-87-21 02:01:00 Test Item Value Reference Range Interpretation Comments Chloride Lvl (test code = Chloride Lvl) 106 95-109 [facility] HospitalJxltbxpFTVSEPUIMJPO4782-79-11 02:01:00 Test Item Value Reference Range Interpretation Comments Potassium Lvl (test code = Potassium 3.7 3.5-5.1 Lvl) [facility] HeightsVlqpjqdEZCEXDRTDI1023-06-33 02:01:00 Test Item Value Reference Range Interpretation Comments RDW (test code = RDW) 16.9 11.5-14.5 [facility] HospitalUewskahTTXDXENGSVYW7177-87-78 02:01:00 Test Item Value Reference Range Interpretation Comments BUN (test code = BUN) 10 7-22 [facility] HospitalLyqdmlzZFTOBHPNCILB7814-18-74 02:01:00 Test Item Value Reference Range Interpretation Comments Glucose Lvl (test code = Glucose Lvl) 88 70-99 [facility] HospitalXphiaqcPZSJHJHTWQOK7195-28-71 02:01:00 Test Item Value Reference Range Interpretation Comments Creatinine Lvl (test code = Creatinine 0.76 0.50-1.40 Lvl) [facility] HeightsEnfeodoOPWRMIAVRZ4919-98-49 02:01:00 Test Item Value Reference Range Interpretation Comments Segs-Bands # (test code = Segs-Bands #) 5.4 1.5-8.1 [facility] HeightsEsejczdZNDJURWKLH7129-99-15 02:01:00 Test Item Value Reference Range Interpretation Comments Basophils (test code = 1.0 See_Comment [Aut omated message] The Basophils) system which ge nerated this result tra nsmitted reference range : <=1.0. The reference r kat was not used to int erpret this result as normal/abnormal . [facility] HeightsWrhuijgPOQDPQQDFY3272-47-06 02:01:00 Test Item Value Reference Range Interpretation Comments Monocytes # (test code 0.7 See_Comment [Aut omated message] The = Monocytes #) system which generated this result tra nsmitted reference range : <=0.8. The reference r kat was not used to int erpret this result as normal/abnormal . [facility] HeightsEaiqnqfJGZBDGCOKF9183-32-02 02:01:00 Test Item Value Reference Range Interpretation Comments Lymphocytes (test code = Lymphocytes) 35.1 20.0-40.0 [facility] HeightsCcffikkOXSDIXVXEX4655-68-22 02:01:00 Test Item Value Reference Range Interpretation Comments Lymphocytes # (test code = Lymphocytes 3.5 1.0-5.5 #) [facility] HeightsZnecsyoXSMMGYHONP6279-94-29 02:01:00 Test Item Value Reference Range Interpretation Comments Monocytes (test code = Monocytes) 6.7 2.0-12.0 [facility] HeightsZrogdyuPPYQIWJWPI9022-00-03 02:01:00 Test Item Value Reference Range Interpretation Comments Segs (test code = Segs) 54.8 45.0-75.0 [facility] HeightsEvsvljqFWFPXGGHOX0355-33-81 02:01:00 Test Item Value Reference Range Interpretation Comments Platelet (test code = Platelet) 208 133-450 [facility] HeightsIsedaupKWLREQTGMW7324-96-35 02:01:00 Test Item Value Reference Range Interpretation Comments Eosinophils (test code = 2.4 See_Comment [A utomated message] The Eosinophils) system which ge nerated this result tra nsmitted reference range : <=4.0. The reference r kat was not used to int erpret this result as normal/abnormal . [facility] HeightsYbzxqdjKSNXDGPBXI5662-97-12 02:01:00 Test Item Value Reference Range Interpretation Comments Basophils # (test code 0.1 See_Comment [Aut omated message] The = Basophils #) system which generated this result tra nsmitted reference range : <=0.2. The reference r kat was not used to int erpret this result as normal/abnormal . [facility] HeightsYxiydxmBHOVZSCGNR0235-38-63 02:01:00 Test Item Value Reference Range Interpretation Comments Microcyte (test code = 1+ *ABN*(09/17/15 Microcyte) 8:01 PM) [facility] HeightsBoqzadyRKIGMCYQHD8151-84-34 02:01:00 Test Item Value Reference Range Interpretation Comments Eosinophils # (test code 0.2 See_Comment [A utomated message] The = Eosinophils #) system whic h generated this result tra nsmitted reference range : <=0.5. The reference r kat was not used to int erpret this result as normal/abnormal . [facility] HeightsJhkpoihYRCOVRBUFR8579-57-96 02:01:00 Test Item Value Reference Range Interpretation Comments MPV (test code = MPV) 10.0 7.4-10.4 [facility] HeightsRavafzjIPKWHDXZRN9303-06-99 02:01:00 Test Item Value Reference Range Interpretation Comments RDW (test code = RDW) 16.9 11.5-14.5 [facility] HeightsJbbadvoFSYVFSALYM7556-45-42 02:01:00 Test Item Value Reference Range Interpretation Comments Platelet (test code = Platelet) 208 133-450 [facility] HeightsCbzksexJDSUQIRLZZ6095-22-90 02:01:00 Test Item Value Reference Range Interpretation Comments MCV (test code = MCV) 77.9 80.0-98.0 [facility] HeightsYfniajzSENPGAAJAP9443-00-25 02:01:00 Test Item Value Reference Range Interpretation Comments MCH (test code = MCH) 24.2 pg 27.0-31.0 [facility] HeightsTmsvplxWGCCWKJCRC6414-32-43 02:01:00 Test Item Value Reference Range Interpretation Comments MCHC (test code = MCHC) 31.1 32.0-36.0 [facility] HeightsHkndwxmUFWQAWZIZA2314-06-08 02:01:00 Test Item Value Reference Range Interpretation Comments MCV (test code = MCV) 77.9 80.0-98.0 [facility] HeightsMkhcbohJHNHYOZDCV3248-75-66 02:01:00 Test Item Value Reference Range Interpretation Comments Hgb (test code = Hgb) 13.3 12.0-16.0 [facility] HeightsTzwnodxCEXYBKPJTD9536-12-24 02:01:00 Test Item Value Reference Range Interpretation Comments Hct (test code = Hct) 42.6 36.0-48.0 [facility] HeightsKldspetAVEBPPYUHP0802-41-29 02:01:00 Test Item Value Reference Range Interpretation Comments WBC (test code = WBC) 9.9 3.7-10.4 [facility] HeightsKxsbsglJTQTOVCCIH1993-53-83 02:01:00 Test Item Value Reference Range Interpretation Comments RBC (test code = RBC) 5.47 4.20-5.40 [facility] HeightsHubcozqGILTKKOUUM6044-53-71 02:01:00 Test Item Value Reference Range Interpretation Comments MCH (test code = MCH) 24.2 pg 27.0-31.0 [facility] HeightsDhadipgNVKOCUTNWA1633-85-40 02:01:00 Test Item Value Reference Range Interpretation Comments MCHC (test code = MCHC) 31.1 32.0-36.0 [facility] HeightsKqxnixnLXLRVAUKZJ8768-28-67 02:01:00 Test Item Value Reference Range Interpretation Comments Hgb (test code = Hgb) 13.3 12.0-16.0 [facility] HeightsLbrtihyVTIEBNATIB1348-97-71 02:01:00 Test Item Value Reference Range Interpretation Comments Hct (test code = Hct) 42.6 36.0-48.0 [facility] HeightsSlxrfreDEVMNKGYRM3736-66-00 02:01:00 Test Item Value Reference Range Interpretation Comments WBC (test code = WBC) 9.9 3.7-10.4 [facility] HeightsYxdcrnrLYIUFEBHJH4058-82-32 02:01:00 Test Item Value Reference Range Interpretation Comments RBC (test code = RBC) 5.47 4.20-5.40 [facility]2016-01-20 02:01:00 Test Item Value Reference Range Interpretation Comments Lipase Lvl (test code = Lipase Lvl) 196 [address]3393 [facility]2016-01-20 02:01:00 Test Item Value Reference Range Interpretation Comments Amylase Lvl (test code = Amylase Lvl) 33 25-115 [facility] HospitalRqlenxwAMCBHUBNGNKI2944-64-06 02:01:00 Test Item Value Reference Range Interpretation Comments AGAP (test code = AGAP) 10.7 10.0-20.0 [facility] HospitalKatptakQKKHZCUKAPGW1432-01-25 02:01:00 Test Item Value Reference Range Interpretation Comments A/G Ratio (test code = A/G Ratio) 1.2 0.7-1.6 [facility] HospitalLyuqjaxRTYGAQTKFAHJ4669-70-30 02:01:00 Test Item Value Reference Range Interpretation Comments Globulin (test code = Globulin) 3.1 2.0-4.0 [facility] HospitalNgfydtdAQWDZXVNIHTV4646-85-77 02:01:00 Test Item Value Reference Range Interpretation Comments B/C Ratio (test code = B/C Ratio) 13 6-25 [facility] HospitalMkkxueiNUIXEUIVHVIE5901-12-97 02:01:00 Test Item Value Reference Range Interpretation Comments Total Protein (test code = Total 6.9 6.4-8.4 Protein) [facility] HospitalWcusngkKAUTDMLUVIJH8339-49-55 02:01:00 Test Item Value Reference Range Interpretation Comments Calcium Lvl (test code = Calcium Lvl) 9.0 8.5-10.5 [facility] HospitalEemwszuMGPTGCLWBHJM3791-10-88 02:01:00 Test Item Value Reference Range Interpretation Comments CO2 (test code = CO2) 26 24-32 [facility] HospitalJloewokTJMGBIETVUGH6564-45-75 02:01:00 Test Item Value Reference Range Interpretation Comments eGFR (test code = eGFR) 110 [facility] HospitalMzyefldMZERLCQGDUWQ5080-51-18 02:01:00 Test Item Value Reference Range Interpretation Comments Bili Total (test code = Bili Total) 0.3 0.2-1.3 [facility] HospitalKisjjhrWTJQSKIAVXAS4940-47-12 02:01:00 Test Item Value Reference Range Interpretation Comments Alk Phos (test code = Alk Phos) 84 39-136 [facility] HospitalYsffentXIHTSPKBZSHK9204-15-21 02:01:00 Test Item Value Reference Range Interpretation Comments AST (test code = AST) 17 See_Comment [Auto mated message] The system which ge nerated this result transmit arvind reference range : <=37. The reference range was not used to interpr et this result as mario l/abnormal. [facility] HospitalRtwmuczNVPKXTDPUVZS1351-37-45 02:01:00 Test Item Value Reference Range Interpretation Comments ALT (test code = ALT) 42 See_Comment [Auto mated message] The system which ge nerated this result transmit arvind reference range : <=65. The reference range was not used to interpr et this result as mario l/abnormal. [facility] HospitalZeuweffPWAECHTLPFGI3942-00-60 02:01:00 Test Item Value Reference Range Interpretation Comments Albumin Lvl (test code = Albumin Lvl) 3.8 3.5-5.0 [facility] HospitalDndlgbzLUFJMQZJRLBU0852-51-71 02:01:00 Test Item Value Reference Range Interpretation Comments Sodium Lvl (test code = Sodium Lvl) 139 135-145 [facility] HospitalWomygntALDOOUWGCRYA3921-71-97 02:01:00 Test Item Value Reference Range Interpretation Comments Chloride Lvl (test code = Chloride Lvl) 106 95-109 [facility] HospitalQrzyjoyICVXPXTGISOX5438-46-29 02:01:00 Test Item Value Reference Range Interpretation Comments Potassium Lvl (test code = Potassium 3.7 3.5-5.1 Lvl) [facility] HospitalAhdwqwfPWCXGBRTBMSZ3677-71-69 02:01:00 Test Item Value Reference Range Interpretation Comments BUN (test code = BUN) 10 7-22 [facility] HospitalAqrbyphYDQJYWXZQTPX3246-45-99 02:01:00 Test Item Value Reference Range Interpretation Comments Glucose Lvl (test code = Glucose Lvl) 88 70-99 [facility] WorthMhabvtkRACUNIVGBQCE7060-82-08 02:01:00 Test Item Value Reference Range Interpretation Comments Creatinine Lvl (test code = Creatinine 0.76 0.50-1.40 Lvl) [facility] HeightsGapyyhcDNPIDRAGZG4376-79-56 02:01:00 Test Item Value Reference Range Interpretation Comments Segs-Bands # (test code = Segs-Bands #) 5.4 1.5-8.1 [facility] HeightsZrrvjdzVGTXEUABCA8181-92-65 02:01:00 Test Item Value Reference Range Interpretation Comments Basophils (test code = 1.0 See_Comment [Aut omated message] The Basophils) system which ge nerated this result tra nsmitted reference range : <=1.0. The reference r kat was not used to int erpret this result as normal/abnormal . [facility] HeightsHbdossrMOGWKSDVZC7535-93-08 02:01:00 Test Item Value Reference Range Interpretation Comments Monocytes # (test code 0.7 See_Comment [Aut omated message] The = Monocytes #) system which generated this result tra nsmitted reference range : <=0.8. The reference r kat was not used to int erpret this result as normal/abnormal . [facility] HeightsMsjdfreJUFNYKOXLY7237-34-78 02:01:00 Test Item Value Reference Range Interpretation Comments Lymphocytes (test code = Lymphocytes) 35.1 20.0-40.0 [facility] HeightsUjhmifiZGPZRIQMIM2592-25-26 02:01:00 Test Item Value Reference Range Interpretation Comments Lymphocytes # (test code = Lymphocytes 3.5 1.0-5.5 #) [facility] HeightsWgqymodQJHTQOMEVM3505-96-10 02:01:00 Test Item Value Reference Range Interpretation Comments Monocytes (test code = Monocytes) 6.7 2.0-12.0 [facility] HeightsXbdyldjDAMHJUTXPO6787-29-48 02:01:00 Test Item Value Reference Range Interpretation Comments Segs (test code = Segs) 54.8 45.0-75.0 [facility] HeightsNenaxigAIENDJPCNP2683-82-35 02:01:00 Test Item Value Reference Range Interpretation Comments Eosinophils (test code = 2.4 See_Comment [A utomated message] The Eosinophils) system which ge nerated this result tra nsmitted reference range : <=4.0. The reference r kat was not used to int erpret this result as normal/abnormal . [facility] HeightsEltskcoYNXXKISJPL2888-80-36 02:01:00 Test Item Value Reference Range Interpretation Comments Basophils # (test code 0.1 See_Comment [Aut omated message] The = Basophils #) system which generated this result tra nsmitted reference range : <=0.2. The reference r kat was not used to int erpret this result as normal/abnormal . [facility] HeightsHhdekfzRLALTYTPXN9827-98-58 02:01:00 Test Item Value Reference Range Interpretation Comments Microcyte (test code = 1+ *ABN*(09/17/15 Microcyte) 8:01 PM) [facility] HeightsOyhjjisPQMQVAVBYI2631-18-72 02:01:00 Test Item Value Reference Range Interpretation Comments Eosinophils # (test code 0.2 See_Comment [A utomated message] The = Eosinophils #) system whic h generated this result tra nsmitted reference range : <=0.5. The reference r kat was not used to int erpret this result as normal/abnormal . [facility] HeightsNwsiudvCDNBVNZSXT9253-51-81 02:01:00 Test Item Value Reference Range Interpretation Comments MPV (test code = MPV) 10.0 7.4-10.4 [facility] HeightsUxynujdBFOAIHBJMB9148-20-69 02:01:00 Test Item Value Reference Range Interpretation Comments RDW (test code = RDW) 16.9 11.5-14.5 [facility] HeightsGaxgtwaLFIXYRUUDD7635-59-13 02:01:00 Test Item Value Reference Range Interpretation Comments Platelet (test code = Platelet) 208 133-450 [facility] HeightsLyisskmPDKKIMNYPQ5497-98-38 02:01:00 Test Item Value Reference Range Interpretation Comments MCV (test code = MCV) 77.9 80.0-98.0 [facility] HeightsRdwfihjJCGEDKWJWI4827-85-85 02:01:00 Test Item Value Reference Range Interpretation Comments MCH (test code = MCH) 24.2 pg 27.0-31.0 [facility] HeightsBynihqfTEAQYCCLRY2387-33-20 02:01:00 Test Item Value Reference Range Interpretation Comments MCHC (test code = MCHC) 31.1 32.0-36.0 [facility] HeightsTpjyzarHIWXAUUIXC5375-26-14 02:01:00 Test Item Value Reference Range Interpretation Comments Hgb (test code = Hgb) 13.3 12.0-16.0 [facility] HeightsDciixsjHGXLGSSHDI2296-65-80 02:01:00 Test Item Value Reference Range Interpretation Comments Hct (test code = Hct) 42.6 36.0-48.0 [facility] HeightsAllkzjlMMRVIBUNDL5928-21-30 02:01:00 Test Item Value Reference Range Interpretation Comments WBC (test code = WBC) 9.9 3.7-10.4 [facility] HeightsHkwqaiwMFEPRIPYWY2096-85-87 02:01:00 Test Item Value Reference Range Interpretation Comments RBC (test code = RBC) 5.47 4.20-5.40 [facility]2016-01-20 02:01:00 Test Item Value Reference Range Interpretation Comments Lipase Lvl (test code = Lipase Lvl) 196 73-393 [facility]2016-01-20 02:01:00 Test Item Value Reference Range Interpretation Comments Amylase Lvl (test code = Amylase Lvl) 33 25-115 [facility]CcldfrnZYHWRQUFRGDO4446-48-10 02:01:00 Test Item Value Reference Range Interpretation Comments AGAP (test code = AGAP) 10.7 10.0-20.0 [facility] HospitalNtnjgufSUJPNCQWNXPX1903-45-36 02:01:00 Test Item Value Reference Range Interpretation Comments A/G Ratio (test code = A/G Ratio) 1.2 0.7-1.6 [facility] HospitalJkqlzwmLKRZUUVXNNES2861-33-00 02:01:00 Test Item Value Reference Range Interpretation Comments Globulin (test code = Globulin) 3.1 2.0-4.0 [facility] HospitalGpehwihREXMWYYANLSD4544-66-15 02:01:00 Test Item Value Reference Range Interpretation Comments B/C Ratio (test code = B/C Ratio) 13 6-25 [facility]XwgtprvVBJTKRTOUNBT1678-51-40 02:01:00 Test Item Value Reference Range Interpretation Comments Total Protein (test code = Total 6.9 6.4-8.4 Protein) [facility]SxucgcsHGXHNESQNIYL5863-95-04 02:01:00 Test Item Value Reference Range Interpretation Comments Calcium Lvl (test code = Calcium Lvl) 9.0 8.5-10.5 [facility]WqhvbhkOVYOQQWUGFRI9197-59-43 02:01:00 Test Item Value Reference Range Interpretation Comments CO2 (test code = CO2) 26 24-32 [facility]NjqxspeBZOCPUPFJRZL1252-94-62 02:01:00 Test Item Value Reference Range Interpretation Comments eGFR (test code = eGFR) 110 [facility]JbwetbnLDOLOIIAHBMV9574-52-85 02:01:00 Test Item Value Reference Range Interpretation Comments Bili Total (test code = Bili Total) 0.3 0.2-1.3 [facility]JqrqaqmHEVWIQVFXHXM5450-14-53 02:01:00 Test Item Value Reference Range Interpretation Comments Alk Phos (test code = Alk Phos) 84 39-136 [facility] HospitalOpchmmnPKDKHOGLGLKG2123-64-60 02:01:00 Test Item Value Reference Range Interpretation Comments AST (test code = AST) 17 See_Comment [Auto mated message] The system which ge nerated this result transmit arvind reference range : <=37. The reference range was not used to interpr et this result as mario l/abnormal. [facility] HospitalNfbsbuvXKZLBUOIGFTM2052-86-38 02:01:00 Test Item Value Reference Range Interpretation Comments ALT (test code = ALT) 42 See_Comment [Auto mated message] The system which ge nerated this result transmit arvind reference range : <=65. The reference range was not used to interpr et this result as mario l/abnormal. [facility] HospitalYqrbabmYLVONKQQGAIJ9752-63-30 02:01:00 Test Item Value Reference Range Interpretation Comments Albumin Lvl (test code = Albumin Lvl) 3.8 3.5-5.0 [facility] HospitalEmaasyfQGIOWQQONXCC3492-02-50 02:01:00 Test Item Value Reference Range Interpretation Comments Sodium Lvl (test code = Sodium Lvl) 139 135-145 [facility]OqehkupYZTALYJRCPLM4741-02-05 02:01:00 Test Item Value Reference Range Interpretation Comments Chloride Lvl (test code = Chloride Lvl) 106 95-109 [facility] HospitalZgeguvqVBYYLEXRZYAJ4444-22-39 02:01:00 Test Item Value Reference Range Interpretation Comments Potassium Lvl (test code = Potassium 3.7 3.5-5.1 Lvl) [facility] HospitalLfkpmhwMPSPAKDJJPCU5903-73-09 02:01:00 Test Item Value Reference Range Interpretation Comments BUN (test code = BUN) 10 7-22 [facility] HospitalMdalmnmLATUIKTVOVCB2957-34-05 02:01:00 Test Item Value Reference Range Interpretation Comments Glucose Lvl (test code = Glucose Lvl) 88 70-99 [facility]JtjajpjHFGYJWULELPN8298-10-13 02:01:00 Test Item Value Reference Range Interpretation Comments Creatinine Lvl (test code = Creatinine 0.76 0.50-1.40 Lvl) [facility]DqfswhqNXIMGPEQLD3059-02-89 02:01:00 Test Item Value Reference Range Interpretation Comments Segs-Bands # (test code = Segs-Bands #) 5.4 1.5-8.1 [facility] HeightsAuuokbaYTNZHZODOB0207-64-04 02:01:00 Test Item Value Reference Range Interpretation Comments Basophils (test code = 1.0 See_Comment [Aut omated message] The Basophils) system which ge nerated this result tra nsmitted reference range : <=1.0. The reference r kat was not used to int erpret this result as normal/abnormal . [facility] HeightsPshxmmnPVMWIMACDY2767-42-80 02:01:00 Test Item Value Reference Range Interpretation Comments Monocytes # (test code 0.7 See_Comment [Aut omated message] The = Monocytes #) system which generated this result tra nsmitted reference range : <=0.8. The reference r kat was not used to int erpret this result as normal/abnormal . [facility] HeightsBgtnxtcRCABAGJXLG6934-60-97 02:01:00 Test Item Value Reference Range Interpretation Comments Lymphocytes (test code = Lymphocytes) 35.1 20.0-40.0 [facility] HeightsGgjxzdwNQYPJPCIHF2812-60-16 02:01:00 Test Item Value Reference Range Interpretation Comments Lymphocytes # (test code = Lymphocytes 3.5 1.0-5.5 #) [facility] HeightsKvlcjsqDDOOGRFRIS5428-24-03 02:01:00 Test Item Value Reference Range Interpretation Comments Monocytes (test code = Monocytes) 6.7 2.0-12.0 [facility] HeightsHjyvsbsNWFKOMXVXE6231-51-54 02:01:00 Test Item Value Reference Range Interpretation Comments Segs (test code = Segs) 54.8 45.0-75.0 [facility] HeightsXwqopnqFNONSZRBRO8793-16-59 02:01:00 Test Item Value Reference Range Interpretation Comments Eosinophils (test code = 2.4 See_Comment [A utomated message] The Eosinophils) system which ge nerated this result tra nsmitted reference range : <=4.0. The reference r kat was not used to int erpret this result as normal/abnormal . [facility] HeightsDypjazqZYZSLNYRMZ7290-52-85 02:01:00 Test Item Value Reference Range Interpretation Comments Basophils # (test code 0.1 See_Comment [Aut omated message] The = Basophils #) system which generated this result tra nsmitted reference range : <=0.2. The reference r kat was not used to int erpret this result as normal/abnormal . [facility] HeightsUwmwfmmUAGPGQIUQH0516-14-96 02:01:00 Test Item Value Reference Range Interpretation Comments Microcyte (test code = 1+ *ABN*(09/17/15 Microcyte) 8:01 PM) [facility] HeightsTcrbvfxKHKTCURYNK7450-68-71 02:01:00 Test Item Value Reference Range Interpretation Comments Eosinophils # (test code 0.2 See_Comment [A utomated message] The = Eosinophils #) system whic h generated this result tra nsmitted reference range : <=0.5. The reference r kat was not used to int erpret this result as normal/abnormal . [facility] HeightsXhvbpokNYSSDHBCDT7231-91-45 02:01:00 Test Item Value Reference Range Interpretation Comments MPV (test code = MPV) 10.0 7.4-10.4 [facility] HeightsDafecimDQOVGXYYVA7425-35-86 02:01:00 Test Item Value Reference Range Interpretation Comments RDW (test code = RDW) 16.9 11.5-14.5 [facility] HeightsDcnvkgnEPJOCECGIF9612-37-58 02:01:00 Test Item Value Reference Range Interpretation Comments Platelet (test code = Platelet) 208 133-450 [facility] HeightsHkggqadFOSGUIXAOW7917-00-67 02:01:00 Test Item Value Reference Range Interpretation Comments MCV (test code = MCV) 77.9 80.0-98.0 [facility] HeightsNcoszhaWCRYMZIIVN2446-95-59 02:01:00 Test Item Value Reference Range Interpretation Comments MCH (test code = MCH) 24.2 pg 27.0-31.0 [facility] HeightsOqsbzyuPFQUNHKMIL9470-60-79 02:01:00 Test Item Value Reference Range Interpretation Comments MCHC (test code = MCHC) 31.1 32.0-36.0 [facility] HeightsImxfphfHZXZUUOTPA5847-64-39 02:01:00 Test Item Value Reference Range Interpretation Comments Hgb (test code = Hgb) 13.3 12.0-16.0 [facility] HeightsOnnuhnqNIHCHIPVXP6983-02-14 02:01:00 Test Item Value Reference Range Interpretation Comments Hct (test code = Hct) 42.6 36.0-48.0 [facility] HeightsPszrimxMIRHFQXPJC9036-37-55 02:01:00 Test Item Value Reference Range Interpretation Comments WBC (test code = WBC) 9.9 3.7-10.4 [facility] HeightsNfyosgjYWEQWPUUPR2349-42-16 02:01:00 Test Item Value Reference Range Interpretation Comments RBC (test code = RBC) 5.47 4.20-5.40 [facility]2016-01-20 02:01:00 Test Item Value Reference Range Interpretation Comments Lipase Lvl (test code = Lipase Lvl) 196 [address]93 [facility]2016-01-20 02:01:00 Test Item Value Reference Range Interpretation Comments Amylase Lvl (test code = Amylase Lvl) 33 25-115 [facility]ZtfzutbPYHHSNOFIBWL1311-53-32 02:01:00 Test Item Value Reference Range Interpretation Comments AGAP (test code = AGAP) 10.7 10.0-20.0 [facility] HospitalVshsvphFLNQOBYZUCLH7965-00-08 02:01:00 Test Item Value Reference Range Interpretation Comments A/G Ratio (test code = A/G Ratio) 1.2 0.7-1.6 [facility] HospitalCoamfsvLXVWBBJHXSGH8087-52-73 02:01:00 Test Item Value Reference Range Interpretation Comments Globulin (test code = Globulin) 3.1 2.0-4.0 [facility] HospitalQbkrxvnMUMDPTTVLSHM8633-98-50 02:01:00 Test Item Value Reference Range Interpretation Comments B/C Ratio (test code = B/C Ratio) 13 6-25 [facility] HospitalIbpkhlyGZSTAORITWAI4911-58-89 02:01:00 Test Item Value Reference Range Interpretation Comments Total Protein (test code = Total 6.9 6.4-8.4 Protein) [facility] HospitalZecjnqiQSXAPSPZWETP6892-94-38 02:01:00 Test Item Value Reference Range Interpretation Comments Calcium Lvl (test code = Calcium Lvl) 9.0 8.5-10.5 [facility] HospitalWhryoslABXJBAVJCVGJ7524-01-26 02:01:00 Test Item Value Reference Range Interpretation Comments CO2 (test code = CO2) 26 24-32 [facility] HospitalBwnhwcqXDZQEQDKPSKB8535-24-42 02:01:00 Test Item Value Reference Range Interpretation Comments eGFR (test code = eGFR) 110 [facility] HospitalJzipyxsQSFQTQBLRNRP2579-82-44 02:01:00 Test Item Value Reference Range Interpretation Comments Bili Total (test code = Bili Total) 0.3 0.2-1.3 [facility] HospitalDccgxqkBTZGKOMTZAPS0742-16-47 02:01:00 Test Item Value Reference Range Interpretation Comments Alk Phos (test code = Alk Phos) 84 39-136 [facility] HospitalSfiuqjyPHZYDRAYUSTB1235-14-19 02:01:00 Test Item Value Reference Range Interpretation Comments AST (test code = AST) 17 See_Comment [Auto mated message] The system which ge nerated this result transmit arvind reference range : <=37. The reference range was not used to interpr et this result as mario l/abnormal. [facility] HospitalUrpmxsgXDDBJZJPBZFS9496-49-97 02:01:00 Test Item Value Reference Range Interpretation Comments ALT (test code = ALT) 42 See_Comment [Auto mated message] The system which ge nerated this result transmit arvind reference range : <=65. The reference range was not used to interpr et this result as mario l/abnormal. [facility] HospitalTmxxnghNUJKBZBFJMVQ7677-32-70 02:01:00 Test Item Value Reference Range Interpretation Comments Albumin Lvl (test code = Albumin Lvl) 3.8 3.5-5.0 [facility] HospitalSqiecxbULLHYTQOIQTL9154-21-95 02:01:00 Test Item Value Reference Range Interpretation Comments Sodium Lvl (test code = Sodium Lvl) 139 135-145 [facility] HospitalEwgkmveEMVOXTFWBAZJ9198-85-36 02:01:00 Test Item Value Reference Range Interpretation Comments Chloride Lvl (test code = Chloride Lvl) 106 95-109 [facility] HospitalKzrniaaDWFQFCHCPROK2706-83-19 02:01:00 Test Item Value Reference Range Interpretation Comments Potassium Lvl (test code = Potassium 3.7 3.5-5.1 Lvl) [facility] HospitalMhwgjhvNULMGJDFQYIQ1481-93-29 02:01:00 Test Item Value Reference Range Interpretation Comments BUN (test code = BUN) 10 7-22 [facility] HospitalGmvijfiPPKQVQOIIJQJ1445-09-71 02:01:00 Test Item Value Reference Range Interpretation Comments Glucose Lvl (test code = Glucose Lvl) 88 70-99 [facility] WorthAtzoatpXDBAULLUUXHK7434-76-01 02:01:00 Test Item Value Reference Range Interpretation Comments Creatinine Lvl (test code = Creatinine 0.76 0.50-1.40 Lvl) [facility] HeightsYipdufxUGHCVDAACK3344-97-27 02:01:00 Test Item Value Reference Range Interpretation Comments Segs-Bands # (test code = Segs-Bands #) 5.4 1.5-8.1 [facility] HeightsOnrdhzdJUPTWPBCOQ4785-29-96 02:01:00 Test Item Value Reference Range Interpretation Comments Basophils (test code = 1.0 See_Comment [Aut omated message] The Basophils) system which ge nerated this result tra nsmitted reference range : <=1.0. The reference r kat was not used to int erpret this result as normal/abnormal . [facility] HeightsCnrgaznFACWMEDVNS8958-56-43 02:01:00 Test Item Value Reference Range Interpretation Comments Monocytes # (test code 0.7 See_Comment [Aut omated message] The = Monocytes #) system which generated this result tra nsmitted reference range : <=0.8. The reference r kat was not used to int erpret this result as normal/abnormal . [facility] HeightsEdygcxoJNZVHANJKJ6488-69-95 02:01:00 Test Item Value Reference Range Interpretation Comments Lymphocytes (test code = Lymphocytes) 35.1 20.0-40.0 [facility] HeightsJgaaduuJISQTRMGEU2525-63-47 02:01:00 Test Item Value Reference Range Interpretation Comments Lymphocytes # (test code = Lymphocytes 3.5 1.0-5.5 #) [facility] HeightsXxtavucKYNJYDANSE9228-39-96 02:01:00 Test Item Value Reference Range Interpretation Comments Monocytes (test code = Monocytes) 6.7 2.0-12.0 [facility] HeightsSdpofigHGTEMUIFWJ3244-97-98 02:01:00 Test Item Value Reference Range Interpretation Comments Segs (test code = Segs) 54.8 45.0-75.0 [facility] HeightsPuivyxaBYSZVCSWBH3410-38-10 02:01:00 Test Item Value Reference Range Interpretation Comments Eosinophils (test code = 2.4 See_Comment [A utomated message] The Eosinophils) system which ge nerated this result tra nsmitted reference range : <=4.0. The reference r kat was not used to int erpret this result as normal/abnormal . [facility] HeightsCejoxefBAEGIEOHQN3814-03-80 02:01:00 Test Item Value Reference Range Interpretation Comments Basophils # (test code 0.1 See_Comment [Aut omated message] The = Basophils #) system which generated this result tra nsmitted reference range : <=0.2. The reference r kat was not used to int erpret this result as normal/abnormal . [facility] HeightsVqhmuyyJARVPZTHVA1726-93-11 02:01:00 Test Item Value Reference Range Interpretation Comments Microcyte (test code = 1+ *ABN*(09/17/15 Microcyte) 8:01 PM) [facility] HeightsCyxdzvhSWJQSUJQHA9181-16-22 02:01:00 Test Item Value Reference Range Interpretation Comments Eosinophils # (test code 0.2 See_Comment [A utomated message] The = Eosinophils #) system whic h generated this result tra nsmitted reference range : <=0.5. The reference r kat was not used to int erpret this result as normal/abnormal . [facility] HeightsDasrguxRBHLHQFGQS4303-03-46 02:01:00 Test Item Value Reference Range Interpretation Comments MPV (test code = MPV) 10.0 7.4-10.4 [facility] HeightsYzzwkwyVVTEERCCNY2708-43-03 02:01:00 Test Item Value Reference Range Interpretation Comments RDW (test code = RDW) 16.9 11.5-14.5 [facility] HeightsRbfccyxMHMQOZXODB4297-07-02 02:01:00 Test Item Value Reference Range Interpretation Comments Platelet (test code = Platelet) 208 133-450 [facility] HeightsHmfddxzQVZTMYTBWT3928-77-45 02:01:00 Test Item Value Reference Range Interpretation Comments MCV (test code = MCV) 77.9 80.0-98.0 [facility] HeightsFpptdflTTCUYRMXHZ1080-90-95 02:01:00 Test Item Value Reference Range Interpretation Comments MCH (test code = MCH) 24.2 pg 27.0-31.0 [facility] HeightsHfonubdBFFLZKXWXP9545-63-02 02:01:00 Test Item Value Reference Range Interpretation Comments MCHC (test code = MCHC) 31.1 32.0-36.0 [facility] HeightsJowukjdZORSPMUHBQ2003-50-22 02:01:00 Test Item Value Reference Range Interpretation Comments Hgb (test code = Hgb) 13.3 12.0-16.0 [facility] HeightsZfgxrtcDZLMRAEXSH9796-27-19 02:01:00 Test Item Value Reference Range Interpretation Comments Hct (test code = Hct) 42.6 36.0-48.0 [facility] HeightsJqdpqxiKMXYUNBOJD9218-97-14 02:01:00 Test Item Value Reference Range Interpretation Comments WBC (test code = WBC) 9.9 3.7-10.4 [facility] HeightsUprttnrCLAKIWLUQJ5181-57-64 02:01:00 Test Item Value Reference Range Interpretation Comments RBC (test code = RBC) 5.47 4.20-5.40 [facility]2016-01-20 02:01:00 Test Item Value Reference Range Interpretation Comments Lipase Lvl (test code = Lipase Lvl) 196 [address]3393 [facility]2016-01-20 02:01:00 Test Item Value Reference Range Interpretation Comments Amylase Lvl (test code = Amylase Lvl) 33 25-115 [facility] HospitalRltlfwdCVMKPEBKWWUY7806-14-61 02:01:00 Test Item Value Reference Range Interpretation Comments AGAP (test code = AGAP) 10.7 10.0-20.0 [facility] HospitalVxnwgwqZUCJGISLZCGT8526-24-83 02:01:00 Test Item Value Reference Range Interpretation Comments A/G Ratio (test code = A/G Ratio) 1.2 0.7-1.6 [facility] HospitalDsppzmrGSJZBWTEZGOI7405-43-10 02:01:00 Test Item Value Reference Range Interpretation Comments Globulin (test code = Globulin) 3.1 2.0-4.0 [facility] HospitalIvfvxryLVVNTBMVIKEW7589-22-44 02:01:00 Test Item Value Reference Range Interpretation Comments B/C Ratio (test code = B/C Ratio) 13 6-25 [facility] HospitalQhqyscuCLKWERGTUCBP6098-90-70 02:01:00 Test Item Value Reference Range Interpretation Comments Total Protein (test code = Total 6.9 6.4-8.4 Protein) [facility] HospitalUsumrvoCUOAURHYGXBK1497-05-03 02:01:00 Test Item Value Reference Range Interpretation Comments Calcium Lvl (test code = Calcium Lvl) 9.0 8.5-10.5 [facility] HospitalWrnkyoeXKJTMGLLXJAS1449-11-76 02:01:00 Test Item Value Reference Range Interpretation Comments CO2 (test code = CO2) 26 24-32 [facility] HospitalHiavmgaOGGKDCYCRCQJ9805-73-60 02:01:00 Test Item Value Reference Range Interpretation Comments eGFR (test code = eGFR) 110 [facility] HospitalZtvjlrcIANFCAYPEATL8276-39-54 02:01:00 Test Item Value Reference Range Interpretation Comments Bili Total (test code = Bili Total) 0.3 0.2-1.3 [facility]XkmtvdhXXLAMPDMLJBW7714-03-98 02:01:00 Test Item Value Reference Range Interpretation Comments Alk Phos (test code = Alk Phos) 84 39-136 [facility] HospitalLwubhvlXFHPGNUCYNQG2955-89-61 02:01:00 Test Item Value Reference Range Interpretation Comments AST (test code = AST) 17 See_Comment [Auto mated message] The system which ge nerated this result transmit arvind reference range : <=37. The reference range was not used to interpr et this result as mario l/abnormal. [facility] HospitalYuksfilWCEPWGFPUDFU5105-17-87 02:01:00 Test Item Value Reference Range Interpretation Comments ALT (test code = ALT) 42 See_Comment [Auto mated message] The system which ge nerated this result transmit arvind reference range : <=65. The reference range was not used to interpr et this result as mario l/abnormal. [facility] HospitalEvznypaDNLHJAPLMCFH4005-93-59 02:01:00 Test Item Value Reference Range Interpretation Comments Albumin Lvl (test code = Albumin Lvl) 3.8 3.5-5.0 [facility] HospitalRsuuculXNPQSRCAJSNV8903-52-27 02:01:00 Test Item Value Reference Range Interpretation Comments Sodium Lvl (test code = Sodium Lvl) 139 135-145 [facility] HospitalDsjuekyIOXDDQDTENGG1495-86-69 02:01:00 Test Item Value Reference Range Interpretation Comments Chloride Lvl (test code = Chloride Lvl) 106 95-109 [facility] HospitalQztvkasUIAZZLXDIDMK3740-38-63 02:01:00 Test Item Value Reference Range Interpretation Comments Potassium Lvl (test code = Potassium 3.7 3.5-5.1 Lvl) [facility] HospitalUppbwgeGYJXUCVGIFAO2464-40-37 02:01:00 Test Item Value Reference Range Interpretation Comments BUN (test code = BUN) 10 7-22 [facility] HospitalNdyyomjXUHQAVORYUZK5937-72-51 02:01:00 Test Item Value Reference Range Interpretation Comments Glucose Lvl (test code = Glucose Lvl) 88 70-99 [facility] WorthQewovbkVVMBHHMALYAA2362-36-56 02:01:00 Test Item Value Reference Range Interpretation Comments Creatinine Lvl (test code = Creatinine 0.76 0.50-1.40 Lvl) [facility] HeightsQbmfgzdYJMUQERDFU8690-06-90 02:01:00 Test Item Value Reference Range Interpretation Comments Segs-Bands # (test code = Segs-Bands #) 5.4 1.5-8.1 [facility] HeightsArtdkwsGCSOOIRGDH1187-85-42 02:01:00 Test Item Value Reference Range Interpretation Comments Basophils (test code = 1.0 See_Comment [Aut omated message] The Basophils) system which ge nerated this result tra nsmitted reference range : <=1.0. The reference r kat was not used to int erpret this result as normal/abnormal . [facility] HeightsLltxrmkTQHKFTNWIV9474-80-92 02:01:00 Test Item Value Reference Range Interpretation Comments Monocytes # (test code 0.7 See_Comment [Aut omated message] The = Monocytes #) system which generated this result tra nsmitted reference range : <=0.8. The reference r kat was not used to int erpret this result as normal/abnormal . [facility] HeightsJgxcgxkZZJAYPLMSC4627-59-66 02:01:00 Test Item Value Reference Range Interpretation Comments Lymphocytes (test code = Lymphocytes) 35.1 20.0-40.0 [facility] HeightsOvtxnqxBBLLRYDSGK5888-37-07 02:01:00 Test Item Value Reference Range Interpretation Comments Lymphocytes # (test code = Lymphocytes 3.5 1.0-5.5 #) [facility] HeightsMpcxsnlSCCZEQMWHT4652-21-28 02:01:00 Test Item Value Reference Range Interpretation Comments Monocytes (test code = Monocytes) 6.7 2.0-12.0 [facility] HeightsMlalivqTECEHFCMCW7236-52-60 02:01:00 Test Item Value Reference Range Interpretation Comments Segs (test code = Segs) 54.8 45.0-75.0 [facility] HeightsSexryvjMNIGUKWLHP6629-00-48 02:01:00 Test Item Value Reference Range Interpretation Comments Eosinophils (test code = 2.4 See_Comment [A utomated message] The Eosinophils) system which ge nerated this result tra nsmitted reference range : <=4.0. The reference r kat was not used to int erpret this result as normal/abnormal . [facility] HeightsJcsukfkJCOCPWKNYL5704-19-96 02:01:00 Test Item Value Reference Range Interpretation Comments Basophils # (test code 0.1 See_Comment [Aut omated message] The = Basophils #) system which generated this result tra nsmitted reference range : <=0.2. The reference r kat was not used to int erpret this result as normal/abnormal . [facility] HeightsKzzawfkSVBAHNZBAU7102-30-82 02:01:00 Test Item Value Reference Range Interpretation Comments Microcyte (test code = 1+ *ABN*(09/17/15 Microcyte) 8:01 PM) [facility] HeightsKupwcmpZXVPTRNRBU0686-08-44 02:01:00 Test Item Value Reference Range Interpretation Comments Eosinophils # (test code 0.2 See_Comment [A utomated message] The = Eosinophils #) system whic h generated this result tra nsmitted reference range : <=0.5. The reference r kat was not used to int erpret this result as normal/abnormal . [facility] HeightsWuuffwwSXLZPEBXCR7300-00-29 02:01:00 Test Item Value Reference Range Interpretation Comments MPV (test code = MPV) 10.0 7.4-10.4 [facility] HeightsYbkdgteJTBKVTGSAE5121-27-70 02:01:00 Test Item Value Reference Range Interpretation Comments RDW (test code = RDW) 16.9 11.5-14.5 [facility] HeightsYwyhqfnCCAWOGXRTB0096-48-96 02:01:00 Test Item Value Reference Range Interpretation Comments Platelet (test code = Platelet) 208 133-450 [facility] HeightsOoxcutxMTKWOFGPOE8511-78-58 02:01:00 Test Item Value Reference Range Interpretation Comments MCV (test code = MCV) 77.9 80.0-98.0 [facility] HeightsVwbwsedNIHLUYUNVS7764-39-71 02:01:00 Test Item Value Reference Range Interpretation Comments MCH (test code = MCH) 24.2 pg 27.0-31.0 [facility] HeightsQfaonqpTXCIGKVHAM4601-64-63 02:01:00 Test Item Value Reference Range Interpretation Comments MCHC (test code = MCHC) 31.1 32.0-36.0 [facility] HeightsExxdhkhJNUHXUUEEF6083-70-18 02:01:00 Test Item Value Reference Range Interpretation Comments Hgb (test code = Hgb) 13.3 12.0-16.0 [facility] HeightsKfgggznWDEOILSDQA0906-49-52 02:01:00 Test Item Value Reference Range Interpretation Comments Hct (test code = Hct) 42.6 36.0-48.0 [facility] HeightsDhfbnzmQTWXMQTARD1509-93-96 02:01:00 Test Item Value Reference Range Interpretation Comments WBC (test code = WBC) 9.9 3.7-10.4 [facility] HeightsZfdwsnzOCGRDQXCQU7354-39-38 02:01:00 Test Item Value Reference Range Interpretation Comments RBC (test code = RBC) 5.47 4.20-5.40 [facility]2016-01-20 02:01:00 Test Item Value Reference Range Interpretation Comments Lipase Lvl (test code = Lipase Lvl) 196 73393 [facility]2016-01-20 02:01:00 Test Item Value Reference Range Interpretation Comments Amylase Lvl (test code = Amylase Lvl) 33 25-115 [facility]InusdgaWMYJLLNFKMPN3662-51-71 02:01:00 Test Item Value Reference Range Interpretation Comments AGAP (test code = AGAP) 10.7 10.0-20.0 [facility] HospitalYcyeixyGSTLNZNTYXEF9757-07-39 02:01:00 Test Item Value Reference Range Interpretation Comments A/G Ratio (test code = A/G Ratio) 1.2 0.7-1.6 [facility] HospitalSrsubbcYOUGIBQFTRIN0655-43-01 02:01:00 Test Item Value Reference Range Interpretation Comments Globulin (test code = Globulin) 3.1 2.0-4.0 [facility] HospitalDeqzjkzZEXOXZOSOUJO9228-59-03 02:01:00 Test Item Value Reference Range Interpretation Comments B/C Ratio (test code = B/C Ratio) 13 6-25 [facility] HospitalAnlexkvMITSKSHJBELO1584-39-68 02:01:00 Test Item Value Reference Range Interpretation Comments Total Protein (test code = Total 6.9 6.4-8.4 Protein) [facility] HospitalJspagafJLHLEJFDMPQS3776-19-04 02:01:00 Test Item Value Reference Range Interpretation Comments Calcium Lvl (test code = Calcium Lvl) 9.0 8.5-10.5 [facility] HospitalPiyppaqBMZOSDVACXSG4131-43-92 02:01:00 Test Item Value Reference Range Interpretation Comments CO2 (test code = CO2) 26 24-32 [facility] HospitalQfxjwzvLMFHHGKRAPVP2741-91-46 02:01:00 Test Item Value Reference Range Interpretation Comments eGFR (test code = eGFR) 110 [facility] HospitalOwslvthOCONMIVSDVXG8326-55-47 02:01:00 Test Item Value Reference Range Interpretation Comments Bili Total (test code = Bili Total) 0.3 0.2-1.3 [facility] HospitalNngmkxiIEOVELMPLTPH9039-53-70 02:01:00 Test Item Value Reference Range Interpretation Comments Alk Phos (test code = Alk Phos) 84 39-136 [facility] HospitalGwjqjueRCFYQTOPDAAE6822-33-91 02:01:00 Test Item Value Reference Range Interpretation Comments AST (test code = AST) 17 See_Comment [Auto mated message] The system which ge nerated this result transmit arvind reference range : <=37. The reference range was not used to interpr et this result as mario l/abnormal. [facility] HospitalZxujgvmONVUKIXFECTW1656-28-27 02:01:00 Test Item Value Reference Range Interpretation Comments ALT (test code = ALT) 42 See_Comment [Auto mated message] The system which ge nerated this result transmit arvind reference range : <=65. The reference range was not used to interpr et this result as mario l/abnormal. [facility] HospitalSunipcyHKGOCIGBKJZH0052-34-81 02:01:00 Test Item Value Reference Range Interpretation Comments Albumin Lvl (test code = Albumin Lvl) 3.8 3.5-5.0 [facility] HospitalQihoomeTVCXLICVGTMG5261-22-55 02:01:00 Test Item Value Reference Range Interpretation Comments Sodium Lvl (test code = Sodium Lvl) 139 135-145 [facility] HospitalJpbtfgyWMDDTSYJKSGX6346-62-31 02:01:00 Test Item Value Reference Range Interpretation Comments Chloride Lvl (test code = Chloride Lvl) 106 95-109 [facility] HospitalCqkcqziEUHOVVVZTTUT4015-80-35 02:01:00 Test Item Value Reference Range Interpretation Comments Potassium Lvl (test code = Potassium 3.7 3.5-5.1 Lvl) [facility] HospitalFmiswpzTBHKBRNDUUOP9246-33-42 02:01:00 Test Item Value Reference Range Interpretation Comments BUN (test code = BUN) 10 7-22 [facility] HospitalHgzkqbaFUMQPGMMVUPB7916-37-31 02:01:00 Test Item Value Reference Range Interpretation Comments Glucose Lvl (test code = Glucose Lvl) 88 70-99 [facility]GamxoxlNXUTDDMNYXXX7314-32-49 02:01:00 Test Item Value Reference Range Interpretation Comments Creatinine Lvl (test code = Creatinine 0.76 0.50-1.40 Lvl) [facility] HeightsLvndilxCLPSERUFOL9215-11-65 02:01:00 Test Item Value Reference Range Interpretation Comments Segs-Bands # (test code = Segs-Bands #) 5.4 1.5-8.1 [facility] HeightsBywnfjyPNMYAUUQVL9780-29-38 02:01:00 Test Item Value Reference Range Interpretation Comments Basophils (test code = 1.0 See_Comment [Aut omated message] The Basophils) system which ge nerated this result tra nsmitted reference range : <=1.0. The reference r kat was not used to int erpret this result as normal/abnormal . [facility] HeightsMjjuuarRUNYVBGYYQ7528-05-95 02:01:00 Test Item Value Reference Range Interpretation Comments Monocytes # (test code 0.7 See_Comment [Aut omated message] The = Monocytes #) system which generated this result tra nsmitted reference range : <=0.8. The reference r kat was not used to int erpret this result as normal/abnormal . [facility] HeightsZpvkbcjJPEDVDWNKB5274-61-91 02:01:00 Test Item Value Reference Range Interpretation Comments Lymphocytes (test code = Lymphocytes) 35.1 20.0-40.0 [facility] HeightsHswvosgMGXPMPKMAW2641-72-74 02:01:00 Test Item Value Reference Range Interpretation Comments Lymphocytes # (test code = Lymphocytes 3.5 1.0-5.5 #) [facility] HeightsSefsbivUYSQCIQNHU4810-28-17 02:01:00 Test Item Value Reference Range Interpretation Comments Monocytes (test code = Monocytes) 6.7 2.0-12.0 [facility] HeightsXkusupePZACGUTCVP2838-44-46 02:01:00 Test Item Value Reference Range Interpretation Comments Segs (test code = Segs) 54.8 45.0-75.0 [facility] HeightsStsvjmePXXXDQMBLI3931-36-61 02:01:00 Test Item Value Reference Range Interpretation Comments Eosinophils (test code = 2.4 See_Comment [A utomated message] The Eosinophils) system which ge nerated this result tra nsmitted reference range : <=4.0. The reference r kat was not used to int erpret this result as normal/abnormal . [facility] HeightsVipnircDWZOZXIQFI4096-32-95 02:01:00 Test Item Value Reference Range Interpretation Comments Basophils # (test code 0.1 See_Comment [Aut omated message] The = Basophils #) system which generated this result tra nsmitted reference range : <=0.2. The reference r kat was not used to int erpret this result as normal/abnormal . [facility] HeightsJaqgoyfBMFNZTNFSO6730-23-06 02:01:00 Test Item Value Reference Range Interpretation Comments Microcyte (test code = 1+ *ABN*(09/17/15 Microcyte) 8:01 PM) [facility] HeightsIjpfchdUAVLXLQTVD4152-11-83 02:01:00 Test Item Value Reference Range Interpretation Comments Eosinophils # (test code 0.2 See_Comment [A utomated message] The = Eosinophils #) system whic h generated this result tra nsmitted reference range : <=0.5. The reference r kat was not used to int erpret this result as normal/abnormal . [facility] HeightsPfdueyfJOKWSLIQFU9975-09-49 02:01:00 Test Item Value Reference Range Interpretation Comments MPV (test code = MPV) 10.0 7.4-10.4 [facility] HeightsBvaomwlWQZNVLXBCS0778-35-82 02:01:00 Test Item Value Reference Range Interpretation Comments RDW (test code = RDW) 16.9 11.5-14.5 [facility] HeightsVswkgmqNDAVYCPTEO9363-40-84 02:01:00 Test Item Value Reference Range Interpretation Comments Platelet (test code = Platelet) 208 133-450 [facility] HeightsVgfunzvPXXWBGASOV1923-72-84 02:01:00 Test Item Value Reference Range Interpretation Comments MCV (test code = MCV) 77.9 80.0-98.0 [facility] HeightsRavandeZYZHYKNLDR3231-89-91 02:01:00 Test Item Value Reference Range Interpretation Comments MCH (test code = MCH) 24.2 pg 27.0-31.0 [facility] HeightsAuuwwotRBDEBZNJYU4363-07-68 02:01:00 Test Item Value Reference Range Interpretation Comments MCHC (test code = MCHC) 31.1 32.0-36.0 [facility] HeightsGicqqiyZKGYYIDXGW3792-35-14 02:01:00 Test Item Value Reference Range Interpretation Comments Hgb (test code = Hgb) 13.3 12.0-16.0 [facility] HeightsJzquwicHCKTVOLBTG5271-46-28 02:01:00 Test Item Value Reference Range Interpretation Comments Hct (test code = Hct) 42.6 36.0-48.0 [facility] HeightsWcsnqtuUOZMJREFII5743-01-97 02:01:00 Test Item Value Reference Range Interpretation Comments WBC (test code = WBC) 9.9 3.7-10.4 [facility] HeightsMbbfkriXXHZVRGMHZ4072-81-29 02:01:00 Test Item Value Reference Range Interpretation Comments RBC (test code = RBC) 5.47 4.20-5.40 [facility]2016-01-20 02:01:00 Test Item Value Reference Range Interpretation Comments Lipase Lvl (test code = Lipase Lvl) 196 73-393 [facility]2016-01-20 02:01:00 Test Item Value Reference Range Interpretation Comments Amylase Lvl (test code = Amylase Lvl) 33 25-115 [facility] HospitalNlfvyfyQLEBOQLULSAQ6997-75-92 02:01:00 Test Item Value Reference Range Interpretation Comments AGAP (test code = AGAP) 10.7 10.0-20.0 [facility] HospitalYqyexepGJMRNLUUFYKY7312-56-16 02:01:00 Test Item Value Reference Range Interpretation Comments A/G Ratio (test code = A/G Ratio) 1.2 0.7-1.6 [facility] HospitalVifcminISRINLLUIPYH5372-14-87 02:01:00 Test Item Value Reference Range Interpretation Comments Globulin (test code = Globulin) 3.1 2.0-4.0 [facility] HospitalNfbdijgGGVYSRFXROEL8023-29-31 02:01:00 Test Item Value Reference Range Interpretation Comments B/C Ratio (test code = B/C Ratio) 13 6-25 [facility] HospitalWhynmllAWPUGLGGMOBW0094-33-28 02:01:00 Test Item Value Reference Range Interpretation Comments Total Protein (test code = Total 6.9 6.4-8.4 Protein) [facility] HospitalTvhvkscEWBLMWLGYVCN4953-95-66 02:01:00 Test Item Value Reference Range Interpretation Comments Calcium Lvl (test code = Calcium Lvl) 9.0 8.5-10.5 [facility] HospitalDgabokuMZYETBFUJKDW3992-56-34 02:01:00 Test Item Value Reference Range Interpretation Comments CO2 (test code = CO2) 26 24-32 [facility] HospitalJegnjdbLAQNWVUWLTYI7400-52-30 02:01:00 Test Item Value Reference Range Interpretation Comments eGFR (test code = eGFR) 110 [facility] HospitalIkssiqeYKQPDTGIXSCC0018-22-06 02:01:00 Test Item Value Reference Range Interpretation Comments Bili Total (test code = Bili Total) 0.3 0.2-1.3 [facility] HospitalQdbunhzYXHCOXQCQBWY1855-54-87 02:01:00 Test Item Value Reference Range Interpretation Comments Alk Phos (test code = Alk Phos) 84 39-136 [facility] HospitalXounavkDTULKFCTTFAX5995-33-91 02:01:00 Test Item Value Reference Range Interpretation Comments AST (test code = AST) 17 See_Comment [Auto mated message] The system which ge nerated this result transmit arvind reference range : <=37. The reference range was not used to interpr et this result as mario l/abnormal. [facility] HospitalYhhdrhsXGBEJVBLGPVP5796-82-34 02:01:00 Test Item Value Reference Range Interpretation Comments ALT (test code = ALT) 42 See_Comment [Auto mated message] The system which ge nerated this result transmit arvind reference range : <=65. The reference range was not used to interpr et this result as mario l/abnormal. [facility] HospitalMnoqiguVQODKTDYSNDM8585-77-26 02:01:00 Test Item Value Reference Range Interpretation Comments Albumin Lvl (test code = Albumin Lvl) 3.8 3.5-5.0 [facility] HospitalQypnsowAHNQLCSJYTOU4772-81-38 02:01:00 Test Item Value Reference Range Interpretation Comments Sodium Lvl (test code = Sodium Lvl) 139 135-145 [facility] HospitalJudznndXROOGGOTPFHP2017-20-11 02:01:00 Test Item Value Reference Range Interpretation Comments Chloride Lvl (test code = Chloride Lvl) 106 95-109 [facility] HospitalPfyublzXVPKOHSBKCQW8315-61-94 02:01:00 Test Item Value Reference Range Interpretation Comments Potassium Lvl (test code = Potassium 3.7 3.5-5.1 Lvl) [facility] HospitalAcoqrpgWLLFVEXRIOXR3924-05-68 02:01:00 Test Item Value Reference Range Interpretation Comments BUN (test code = BUN) 10 7-22 [facility] HospitalAaqtrhvVBSSOYTQWOHQ5607-79-35 02:01:00 Test Item Value Reference Range Interpretation Comments Glucose Lvl (test code = Glucose Lvl) 88 70-99 [facility] WorthRphwlzsSKBLWGRBWPGU5207-07-36 02:01:00 Test Item Value Reference Range Interpretation Comments Creatinine Lvl (test code = Creatinine 0.76 0.50-1.40 Lvl) [facility] HeightsUmpngsaEFRLAOUYPU7004-53-54 02:01:00 Test Item Value Reference Range Interpretation Comments Segs-Bands # (test code = Segs-Bands #) 5.4 1.5-8.1 [facility] HeightsBqeavkaJONCYSNRES2282-49-41 02:01:00 Test Item Value Reference Range Interpretation Comments Basophils (test code = 1.0 See_Comment [Aut omated message] The Basophils) system which ge nerated this result tra nsmitted reference range : <=1.0. The reference r kat was not used to int erpret this result as normal/abnormal . [facility] HeightsAbwcvihDXRCAIYCFI2399-77-83 02:01:00 Test Item Value Reference Range Interpretation Comments Monocytes # (test code 0.7 See_Comment [Aut omated message] The = Monocytes #) system which generated this result tra nsmitted reference range : <=0.8. The reference r kat was not used to int erpret this result as normal/abnormal . [facility] HeightsDglssaqWOSLJEZIJG8951-67-22 02:01:00 Test Item Value Reference Range Interpretation Comments Lymphocytes (test code = Lymphocytes) 35.1 20.0-40.0 [facility] HeightsDbysdnfGJHFKFJCGN7164-12-59 02:01:00 Test Item Value Reference Range Interpretation Comments Lymphocytes # (test code = Lymphocytes 3.5 1.0-5.5 #) [facility] HeightsMvojbukKGEZIJILDC5500-09-85 02:01:00 Test Item Value Reference Range Interpretation Comments Monocytes (test code = Monocytes) 6.7 2.0-12.0 [facility] HeightsWfwsmpiXIBSRAEJKE5172-63-80 02:01:00 Test Item Value Reference Range Interpretation Comments Segs (test code = Segs) 54.8 45.0-75.0 [facility] HeightsFewxzriJAPZFWQYGE8446-28-53 02:01:00 Test Item Value Reference Range Interpretation Comments Eosinophils (test code = 2.4 See_Comment [A utomated message] The Eosinophils) system which ge nerated this result tra nsmitted reference range : <=4.0. The reference r kat was not used to int erpret this result as normal/abnormal . [facility] HeightsLwvulojIQZPWZBPTV5954-86-38 02:01:00 Test Item Value Reference Range Interpretation Comments Basophils # (test code 0.1 See_Comment [Aut omated message] The = Basophils #) system which generated this result tra nsmitted reference range : <=0.2. The reference r kat was not used to int erpret this result as normal/abnormal . [facility] HeightsPcwieplLZBKXPDRCI0885-66-74 02:01:00 Test Item Value Reference Range Interpretation Comments Microcyte (test code = 1+ *ABN*(09/17/15 Microcyte) 8:01 PM) [facility] HeightsDrjtdkdKLAPAQQOJK5219-42-32 02:01:00 Test Item Value Reference Range Interpretation Comments Eosinophils # (test code 0.2 See_Comment [A utomated message] The = Eosinophils #) system whic h generated this result tra nsmitted reference range : <=0.5. The reference r kat was not used to int erpret this result as normal/abnormal . [facility] HeightsHankmegRPPHMVQEVG7155-76-87 02:01:00 Test Item Value Reference Range Interpretation Comments MPV (test code = MPV) 10.0 7.4-10.4 [facility] HeightsGpkefkvMYBCCMVSHX1198-40-31 02:01:00 Test Item Value Reference Range Interpretation Comments RDW (test code = RDW) 16.9 11.5-14.5 [facility] HeightsUhozbiiYXSCLQAGYO3600-91-25 02:01:00 Test Item Value Reference Range Interpretation Comments Platelet (test code = Platelet) 208 133-450 [facility] HeightsRnmqajfCXGNANIWZR6508-22-61 02:01:00 Test Item Value Reference Range Interpretation Comments MCV (test code = MCV) 77.9 80.0-98.0 [facility] HeightsXggompcJDHZXOWZIY8299-76-85 02:01:00 Test Item Value Reference Range Interpretation Comments MCH (test code = MCH) 24.2 pg 27.0-31.0 [facility] HeightsWhihyohJTEDJMCQWW8718-46-76 02:01:00 Test Item Value Reference Range Interpretation Comments MCHC (test code = MCHC) 31.1 32.0-36.0 [facility] HeightsGeccoljHDNKTKGTVS7141-93-89 02:01:00 Test Item Value Reference Range Interpretation Comments Hgb (test code = Hgb) 13.3 12.0-16.0 [facility] HeightsHaqzsgxXAFFDRAPGR6845-63-85 02:01:00 Test Item Value Reference Range Interpretation Comments Hct (test code = Hct) 42.6 36.0-48.0 [facility] HeightsEybgyqhJVDUWGOTPL6999-27-07 02:01:00 Test Item Value Reference Range Interpretation Comments WBC (test code = WBC) 9.9 3.7-10.4 [facility] HeightsAwtctglAOQTQEKIIT3741-15-58 02:01:00 Test Item Value Reference Range Interpretation Comments RBC (test code = RBC) 5.47 4.20-5.40 [facility]2016-01-20 02:01:00 Test Item Value Reference Range Interpretation Comments Lipase Lvl (test code = Lipase Lvl) 196 73-393 [facility]2016-01-20 02:01:00 Test Item Value Reference Range Interpretation Comments Amylase Lvl (test code = Amylase Lvl) 33 25-115 [facility] HospitalSyapeofHRIIPKYMOQPI9612-85-61 02:01:00 Test Item Value Reference Range Interpretation Comments AGAP (test code = AGAP) 10.7 10.0-20.0 [facility] HospitalIfvpuyqSABZARBIRXLN9575-54-58 02:01:00 Test Item Value Reference Range Interpretation Comments A/G Ratio (test code = A/G Ratio) 1.2 0.7-1.6 [facility] HospitalZvcccdzCTYPIBORIIPV2348-58-98 02:01:00 Test Item Value Reference Range Interpretation Comments Globulin (test code = Globulin) 3.1 2.0-4.0 [facility] HospitalYydjbwlFZPBAJSFNVAE9709-15-37 02:01:00 Test Item Value Reference Range Interpretation Comments B/C Ratio (test code = B/C Ratio) 13 6-25 [facility] HospitalQxhuyoxKLOIHHWXRCNR6237-61-26 02:01:00 Test Item Value Reference Range Interpretation Comments Total Protein (test code = Total 6.9 6.4-8.4 Protein) [facility] HospitalXwybfraLWWBGJSAKJBN9079-33-28 02:01:00 Test Item Value Reference Range Interpretation Comments Calcium Lvl (test code = Calcium Lvl) 9.0 8.5-10.5 [facility] HospitalHrfpdhoNHSLOXTFTJYX3397-87-77 02:01:00 Test Item Value Reference Range Interpretation Comments CO2 (test code = CO2) 26 24-32 [facility] HospitalPvcpeghDFJNZZHHHTVU4874-71-20 02:01:00 Test Item Value Reference Range Interpretation Comments eGFR (test code = eGFR) 110 [facility] HospitalDsqdqqkKGSMZGMCWXSU3319-90-96 02:01:00 Test Item Value Reference Range Interpretation Comments Bili Total (test code = Bili Total) 0.3 0.2-1.3 [facility] HospitalOmxvpvvSPKIGDMFRRHI9023-09-33 02:01:00 Test Item Value Reference Range Interpretation Comments Alk Phos (test code = Alk Phos) 84 39-136 [facility] HospitalGffuskiDHDWWTYGXUNO5224-66-10 02:01:00 Test Item Value Reference Range Interpretation Comments AST (test code = AST) 17 See_Comment [Auto mated message] The system which ge nerated this result transmit arvind reference range : <=37. The reference range was not used to interpr et this result as mraio l/abnormal. [facility] HospitalNbejsijKPIOPLNZROYE2579-27-67 02:01:00 Test Item Value Reference Range Interpretation Comments ALT (test code = ALT) 42 See_Comment [Auto mated message] The system which ge nerated this result transmit arvind reference range : <=65. The reference range was not used to interpr et this result as mario l/abnormal. [facility] HospitalWspogzuZCERRWRXPEUJ1197-00-86 02:01:00 Test Item Value Reference Range Interpretation Comments Albumin Lvl (test code = Albumin Lvl) 3.8 3.5-5.0 [facility] HospitalQquvqpeERIOXZFSKDEF6340-88-43 02:01:00 Test Item Value Reference Range Interpretation Comments Sodium Lvl (test code = Sodium Lvl) 139 135-145 [facility] HospitalKxgfdnvUILNACGAQQBI7554-68-81 02:01:00 Test Item Value Reference Range Interpretation Comments Chloride Lvl (test code = Chloride Lvl) 106 95-109 [facility] HospitalUspnlpqCGNCRHVUTXUQ3669-62-66 02:01:00 Test Item Value Reference Range Interpretation Comments Potassium Lvl (test code = Potassium 3.7 3.5-5.1 Lvl) [facility] HospitalEdbdgsqAYCWCGHEWAKW1021-88-46 02:01:00 Test Item Value Reference Range Interpretation Comments BUN (test code = BUN) 10 7-22 [facility] HospitalVvvixehYDYYDEUXTXAZ3313-97-72 02:01:00 Test Item Value Reference Range Interpretation Comments Glucose Lvl (test code = Glucose Lvl) 88 70-99 [facility] WorthYrhawvyWSXLHVNOEUTM1325-02-32 02:01:00 Test Item Value Reference Range Interpretation Comments Creatinine Lvl (test code = Creatinine 0.76 0.50-1.40 Lvl) [facility] HeightsCtgfoepFQMWMKOQUR3995-61-46 02:01:00 Test Item Value Reference Range Interpretation Comments Segs-Bands # (test code = Segs-Bands #) 5.4 1.5-8.1 [facility] HeightsBjbcrpbYLJKLKFRNC6262-81-03 02:01:00 Test Item Value Reference Range Interpretation Comments Basophils (test code = 1.0 See_Comment [Aut omated message] The Basophils) system which ge nerated this result tra nsmitted reference range : <=1.0. The reference r kat was not used to int erpret this result as normal/abnormal . [facility] HeightsBvmfttuXRXBUEAGVI8304-28-80 02:01:00 Test Item Value Reference Range Interpretation Comments Monocytes # (test code 0.7 See_Comment [Aut omated message] The = Monocytes #) system which generated this result tra nsmitted reference range : <=0.8. The reference r kat was not used to int erpret this result as normal/abnormal . [facility] HeightsPuylrmkRRDIBKSIYO8993-31-79 02:01:00 Test Item Value Reference Range Interpretation Comments Lymphocytes (test code = Lymphocytes) 35.1 20.0-40.0 [facility] HeightsUzintahZPENUXOVNR1323-58-60 02:01:00 Test Item Value Reference Range Interpretation Comments Lymphocytes # (test code = Lymphocytes 3.5 1.0-5.5 #) [facility] HeightsOchzthvEZPWXNYTOO0131-24-31 02:01:00 Test Item Value Reference Range Interpretation Comments Monocytes (test code = Monocytes) 6.7 2.0-12.0 [facility] HeightsDurxdabZWAOBRURVV7582-32-08 02:01:00 Test Item Value Reference Range Interpretation Comments Segs (test code = Segs) 54.8 45.0-75.0 [facility] HeightsAjducptYPTRDUNNAR7801-96-76 02:01:00 Test Item Value Reference Range Interpretation Comments Eosinophils (test code = 2.4 See_Comment [A utomated message] The Eosinophils) system which ge nerated this result tra nsmitted reference range : <=4.0. The reference r kat was not used to int erpret this result as normal/abnormal . [facility] HeightsXojppptXLDYEDIHXS8646-69-65 02:01:00 Test Item Value Reference Range Interpretation Comments Basophils # (test code 0.1 See_Comment [Aut omated message] The = Basophils #) system which generated this result tra nsmitted reference range : <=0.2. The reference r kat was not used to int erpret this result as normal/abnormal . [facility] HeightsTvyfschFPERJRWITM3951-42-63 02:01:00 Test Item Value Reference Range Interpretation Comments Microcyte (test code = 1+ *ABN*(09/17/15 Microcyte) 8:01 PM) [facility] HeightsPqoywlvFIICQQYLFI8818-11-40 02:01:00 Test Item Value Reference Range Interpretation Comments Eosinophils # (test code 0.2 See_Comment [A utomated message] The = Eosinophils #) system whic h generated this result tra nsmitted reference range : <=0.5. The reference r kat was not used to int erpret this result as normal/abnormal . [facility] HeightsGztthnsQPTLBSOVHH2631-41-59 02:01:00 Test Item Value Reference Range Interpretation Comments MPV (test code = MPV) 10.0 7.4-10.4 [facility] HeightsUpssrvoADGEEPJCMH5383-81-18 02:01:00 Test Item Value Reference Range Interpretation Comments RDW (test code = RDW) 16.9 11.5-14.5 [facility] HeightsKraqqxvEMPTZAODTR2698-91-25 02:01:00 Test Item Value Reference Range Interpretation Comments Platelet (test code = Platelet) 208 133-450 [facility] HeightsNitkqnwOFATLOWIJQ3269-10-01 02:01:00 Test Item Value Reference Range Interpretation Comments MCV (test code = MCV) 77.9 80.0-98.0 [facility] HeightsPbucfkbRMRMNIJFML8865-59-80 02:01:00 Test Item Value Reference Range Interpretation Comments MCH (test code = MCH) 24.2 pg 27.0-31.0 [facility] HeightsGjfmthsIBSCPRXUUO9919-24-50 02:01:00 Test Item Value Reference Range Interpretation Comments MCHC (test code = MCHC) 31.1 32.0-36.0 [facility] HeightsKrgwcmvCTARBUEIEU0077-03-74 02:01:00 Test Item Value Reference Range Interpretation Comments Hgb (test code = Hgb) 13.3 12.0-16.0 [facility]DrrkqfsZGUTPDXSNQ1646-76-60 02:01:00 Test Item Value Reference Range Interpretation Comments Hct (test code = Hct) 42.6 36.0-48.0 [facility] HeightsGhrlthkZZIGEBDPHZ2329-80-05 02:01:00 Test Item Value Reference Range Interpretation Comments WBC (test code = WBC) 9.9 3.7-10.4 [facility] HeightsWqtykgvUKNSQJHYJR9208-30-20 02:01:00 Test Item Value Reference Range Interpretation Comments RBC (test code = RBC) 5.47 4.20-5.40 [facility]2016-01-20 02:01:00 Test Item Value Reference Range Interpretation Comments Lipase Lvl (test code = Lipase Lvl) 196 73-393 [facility]2016-01-20 02:01:00 Test Item Value Reference Range Interpretation Comments Amylase Lvl (test code = Amylase Lvl) 33 25-115 [facility]McockylUIXJXGFORUOA5524-90-65 02:01:00 Test Item Value Reference Range Interpretation Comments AGAP (test code = AGAP) 10.7 10.0-20.0 [facility] HospitalAvojpduYQJODOJZWYOI0445-07-40 02:01:00 Test Item Value Reference Range Interpretation Comments A/G Ratio (test code = A/G Ratio) 1.2 0.7-1.6 [facility] HospitalTteyfbrQUNKVREOPMER9140-95-87 02:01:00 Test Item Value Reference Range Interpretation Comments Globulin (test code = Globulin) 3.1 2.0-4.0 [facility] HospitalKirnnyoAWAEXNDLKVIC3229-98-67 02:01:00 Test Item Value Reference Range Interpretation Comments B/C Ratio (test code = B/C Ratio) 13 6-25 [facility] HospitalWvgntxmETHILQUDYGBZ9127-57-51 02:01:00 Test Item Value Reference Range Interpretation Comments Total Protein (test code = Total 6.9 6.4-8.4 Protein) [facility] HospitalEtrzydhPOHZWXOBVYIC1405-43-65 02:01:00 Test Item Value Reference Range Interpretation Comments Calcium Lvl (test code = Calcium Lvl) 9.0 8.5-10.5 [facility] HospitalAjrxffgZXHHBEDKGCFX3625-15-98 02:01:00 Test Item Value Reference Range Interpretation Comments CO2 (test code = CO2) 26 24-32 [facility] HospitalLnhvkjvOHUUXSSDZFQS5373-24-58 02:01:00 Test Item Value Reference Range Interpretation Comments eGFR (test code = eGFR) 110 [facility] HospitalVisumpoRINITXZYZEHY3102-50-47 02:01:00 Test Item Value Reference Range Interpretation Comments Bili Total (test code = Bili Total) 0.3 0.2-1.3 [facility] HospitalSowwlatIXKWMYKOLPWE6545-57-01 02:01:00 Test Item Value Reference Range Interpretation Comments Alk Phos (test code = Alk Phos) 84 39-136 [facility] HospitalObxnxufBADBOMOENNMS9544-21-20 02:01:00 Test Item Value Reference Range Interpretation Comments AST (test code = AST) 17 See_Comment [Auto mated message] The system which ge nerated this result transmit arvind reference range : <=37. The reference range was not used to interpr et this result as mario l/abnormal. [facility] HospitalEmhqkkqZQHGEJZISMFK4106-78-15 02:01:00 Test Item Value Reference Range Interpretation Comments ALT (test code = ALT) 42 See_Comment [Auto mated message] The system which ge nerated this result transmit arvind reference range : <=65. The reference range was not used to interpr et this result as mario l/abnormal. [facility] HospitalPxzpnhmSAMJPYAJFOYH8539-57-03 02:01:00 Test Item Value Reference Range Interpretation Comments Albumin Lvl (test code = Albumin Lvl) 3.8 3.5-5.0 [facility] HospitalZjeocryXCBBLAGEVBBM4425-91-11 02:01:00 Test Item Value Reference Range Interpretation Comments Sodium Lvl (test code = Sodium Lvl) 139 135-145 [facility] HospitalJtcqubdCLMJLMPMGTJI2386-63-74 02:01:00 Test Item Value Reference Range Interpretation Comments Chloride Lvl (test code = Chloride Lvl) 106 95-109 [facility] HospitalBjxreozWRESBEBEZKBB6504-29-85 02:01:00 Test Item Value Reference Range Interpretation Comments Potassium Lvl (test code = Potassium 3.7 3.5-5.1 Lvl) [facility] HospitalLfpgxfeWWWPHVBVYQJZ6746-66-74 02:01:00 Test Item Value Reference Range Interpretation Comments BUN (test code = BUN) 10 7-22 [facility] HospitalSlsyuueCQZHDXGZYGBZ4070-52-57 02:01:00 Test Item Value Reference Range Interpretation Comments Glucose Lvl (test code = Glucose Lvl) 88 70-99 [facility]EahgvxvJLOBIDKRCVZK9561-20-78 02:01:00 Test Item Value Reference Range Interpretation Comments Creatinine Lvl (test code = Creatinine 0.76 0.50-1.40 Lvl) [facility] HeightsPgiyhefOQLLZUFUMH9827-00-36 02:01:00 Test Item Value Reference Range Interpretation Comments Segs-Bands # (test code = Segs-Bands #) 5.4 1.5-8.1 [facility] HeightsWqpvhkvBNRGPHLRZN3698-82-18 02:01:00 Test Item Value Reference Range Interpretation Comments Basophils (test code = 1.0 See_Comment [Aut omated message] The Basophils) system which ge nerated this result tra nsmitted reference range : <=1.0. The reference r kat was not used to int erpret this result as normal/abnormal . [facility] HeightsGgjguphWWTPGSJYMP5341-91-12 02:01:00 Test Item Value Reference Range Interpretation Comments Monocytes # (test code 0.7 See_Comment [Aut omated message] The = Monocytes #) system which generated this result tra nsmitted reference range : <=0.8. The reference r kat was not used to int erpret this result as normal/abnormal . [facility] HeightsZpdirwoNTBXORJWJQ4302-63-23 02:01:00 Test Item Value Reference Range Interpretation Comments Lymphocytes (test code = Lymphocytes) 35.1 20.0-40.0 [facility] HeightsHwspdtaMITIXJEBMJ5527-84-98 02:01:00 Test Item Value Reference Range Interpretation Comments Lymphocytes # (test code = Lymphocytes 3.5 1.0-5.5 #) [facility] HeightsDifzlwwNYJYHAJIZW1501-75-57 02:01:00 Test Item Value Reference Range Interpretation Comments Monocytes (test code = Monocytes) 6.7 2.0-12.0 [facility] HeightsHhhbrxiPFZIDVEATU2063-78-45 02:01:00 Test Item Value Reference Range Interpretation Comments Segs (test code = Segs) 54.8 45.0-75.0 [facility] HeightsWansgimYJRWZFDCAV2348-83-81 02:01:00 Test Item Value Reference Range Interpretation Comments Eosinophils (test code = 2.4 See_Comment [A utomated message] The Eosinophils) system which ge nerated this result tra nsmitted reference range : <=4.0. The reference r kat was not used to int erpret this result as normal/abnormal . [facility] HeightsMofhnqxGYIGQWPIYX6145-16-82 02:01:00 Test Item Value Reference Range Interpretation Comments Basophils # (test code 0.1 See_Comment [Aut omated message] The = Basophils #) system which generated this result tra nsmitted reference range : <=0.2. The reference r kat was not used to int erpret this result as normal/abnormal . [facility] HeightsWsdmiklAIKXRPMSHL9807-26-43 02:01:00 Test Item Value Reference Range Interpretation Comments Microcyte (test code = 1+ *ABN*(09/17/15 Microcyte) 8:01 PM) [facility] HeightsLctrqdyLMEYYRTRNS2419-36-29 02:01:00 Test Item Value Reference Range Interpretation Comments Eosinophils # (test code 0.2 See_Comment [A utomated message] The = Eosinophils #) system whic h generated this result tra nsmitted reference range : <=0.5. The reference r kat was not used to int erpret this result as normal/abnormal . [facility] HeightsWbptpqoXKYUDNPDJX6530-42-59 02:01:00 Test Item Value Reference Range Interpretation Comments MPV (test code = MPV) 10.0 7.4-10.4 [facility] HeightsLxijnpuRUCBBGRMLC0995-83-92 02:01:00 Test Item Value Reference Range Interpretation Comments RDW (test code = RDW) 16.9 11.5-14.5 [facility] HeightsHwfexqmHLEWWJLXEN7916-14-56 02:01:00 Test Item Value Reference Range Interpretation Comments Platelet (test code = Platelet) 208 133-450 [facility] HeightsVaukentESVIECLXCK6254-05-00 02:01:00 Test Item Value Reference Range Interpretation Comments MCV (test code = MCV) 77.9 80.0-98.0 [facility] HeightsQnqmyfhPWOJOLNLVI7287-05-36 02:01:00 Test Item Value Reference Range Interpretation Comments MCH (test code = MCH) 24.2 pg 27.0-31.0 [facility] HeightsXjziugdWIZTOSKHYX7138-40-31 02:01:00 Test Item Value Reference Range Interpretation Comments MCHC (test code = MCHC) 31.1 32.0-36.0 [facility] HeightsBunuxbuOXUPZTCVJA1366-71-53 02:01:00 Test Item Value Reference Range Interpretation Comments Hgb (test code = Hgb) 13.3 12.0-16.0 [facility] HeightsMcrbysuQFJNYPPWEM0152-14-09 02:01:00 Test Item Value Reference Range Interpretation Comments Hct (test code = Hct) 42.6 36.0-48.0 [facility] HeightsEuwhhktVVKMQGADZL9913-34-97 02:01:00 Test Item Value Reference Range Interpretation Comments WBC (test code = WBC) 9.9 3.7-10.4 [facility] HeightsPmnwsxgCVXFVVWHJO0138-30-08 02:01:00 Test Item Value Reference Range Interpretation Comments RBC (test code = RBC) 5.47 4.20-5.40 [facility]2016-01-20 02:01:00 Test Item Value Reference Range Interpretation Comments Lipase Lvl (test code = Lipase Lvl) 196 73-393 [facility]2016-01-20 02:01:00 Test Item Value Reference Range Interpretation Comments Amylase Lvl (test code = Amylase Lvl) 33 25-115 [facility]EalpjpzEGGECGKSTTNV7596-19-75 02:01:00 Test Item Value Reference Range Interpretation Comments AGAP (test code = AGAP) 10.7 10.0-20.0 [facility] HospitalNybiltrEPHHEADADUBM4203-31-97 02:01:00 Test Item Value Reference Range Interpretation Comments A/G Ratio (test code = A/G Ratio) 1.2 0.7-1.6 [facility] HospitalQajjsjnDKVRIJFDKBQP7004-53-10 02:01:00 Test Item Value Reference Range Interpretation Comments Globulin (test code = Globulin) 3.1 2.0-4.0 [facility] HospitalVilyyqqQOLWGBSSOQHB9957-03-67 02:01:00 Test Item Value Reference Range Interpretation Comments B/C Ratio (test code = B/C Ratio) 13 6-25 [facility] HospitalIyxehbtLWALBLILAZLV0877-99-03 02:01:00 Test Item Value Reference Range Interpretation Comments Total Protein (test code = Total 6.9 6.4-8.4 Protein) [facility] HospitalCrpfyouSCECYDTDOBDN3909-22-16 02:01:00 Test Item Value Reference Range Interpretation Comments Calcium Lvl (test code = Calcium Lvl) 9.0 8.5-10.5 [facility] HospitalIcptxesAWWDUBSFMBUV3117-48-63 02:01:00 Test Item Value Reference Range Interpretation Comments CO2 (test code = CO2) 26 24-32 [facility] HospitalZlftmiwWHUCUEUQCTFL2484-73-58 02:01:00 Test Item Value Reference Range Interpretation Comments eGFR (test code = eGFR) 110 [facility] HospitalHumelruCSRYUGUADGHY5684-41-63 02:01:00 Test Item Value Reference Range Interpretation Comments Bili Total (test code = Bili Total) 0.3 0.2-1.3 [facility] HospitalVbgugcdLRLJNSKRSJOG5719-72-87 02:01:00 Test Item Value Reference Range Interpretation Comments Alk Phos (test code = Alk Phos) 84 39-136 [facility] HospitalBrbpftzKGCXBCDVTDPB7682-77-77 02:01:00 Test Item Value Reference Range Interpretation Comments AST (test code = AST) 17 See_Comment [Auto mated message] The system which ge nerated this result transmit arvind reference range : <=37. The reference range was not used to interpr et this result as mario l/abnormal. [facility] HospitalQxosgmvPYHNBKSEGRTX4817-92-96 02:01:00 Test Item Value Reference Range Interpretation Comments ALT (test code = ALT) 42 See_Comment [Auto mated message] The system which ge nerated this result transmit arvind reference range : <=65. The reference range was not used to interpr et this result as mario l/abnormal. [facility] HospitalAwxkbbcZNPVWDQWQSIZ3127-35-32 02:01:00 Test Item Value Reference Range Interpretation Comments Albumin Lvl (test code = Albumin Lvl) 3.8 3.5-5.0 [facility] HospitalZxxejmoGSPUWOQJSSKG6370-42-94 02:01:00 Test Item Value Reference Range Interpretation Comments Sodium Lvl (test code = Sodium Lvl) 139 135-145 [facility] HospitalYzkvomgQALPPIWCZEHK1712-16-20 02:01:00 Test Item Value Reference Range Interpretation Comments Chloride Lvl (test code = Chloride Lvl) 106 95-109 [facility] HospitalSfjmzpxWRUYTBFRJAKK1840-93-01 02:01:00 Test Item Value Reference Range Interpretation Comments Potassium Lvl (test code = Potassium 3.7 3.5-5.1 Lvl) [facility] HospitalFvomttxTJOKYDVBMDEX8809-02-63 02:01:00 Test Item Value Reference Range Interpretation Comments BUN (test code = BUN) 10 7-22 [facility] HospitalJqalhvkKIPTKEZIIMRR4523-34-38 02:01:00 Test Item Value Reference Range Interpretation Comments Glucose Lvl (test code = Glucose Lvl) 88 70-99 [facility] WorthZblncfgHEQMGRUAGXGS7083-31-46 02:01:00 Test Item Value Reference Range Interpretation Comments Creatinine Lvl (test code = Creatinine 0.76 0.50-1.40 Lvl) [facility] HeightsNsfyjdtJWLNVRUWQR3824-77-95 02:01:00 Test Item Value Reference Range Interpretation Comments Segs-Bands # (test code = Segs-Bands #) 5.4 1.5-8.1 [facility] HeightsNwliyztWUNDFGARLU4207-22-18 02:01:00 Test Item Value Reference Range Interpretation Comments Basophils (test code = 1.0 See_Comment [Aut omated message] The Basophils) system which ge nerated this result tra nsmitted reference range : <=1.0. The reference r kat was not used to int erpret this result as normal/abnormal . [facility] HeightsUmzmydcCYSDBJPWQS5662-01-71 02:01:00 Test Item Value Reference Range Interpretation Comments Monocytes # (test code 0.7 See_Comment [Aut omated message] The = Monocytes #) system which generated this result tra nsmitted reference range : <=0.8. The reference r kat was not used to int erpret this result as normal/abnormal . [facility] HeightsQmsvcjoTPLKKSCQOU3365-27-71 02:01:00 Test Item Value Reference Range Interpretation Comments Lymphocytes (test code = Lymphocytes) 35.1 20.0-40.0 [facility] HeightsJolpelyOABYSRLFSQ6541-26-70 02:01:00 Test Item Value Reference Range Interpretation Comments Lymphocytes # (test code = Lymphocytes 3.5 1.0-5.5 #) [facility] HeightsVxxwitgVSDHXCCIIR2160-04-27 02:01:00 Test Item Value Reference Range Interpretation Comments Monocytes (test code = Monocytes) 6.7 2.0-12.0 [facility] HeightsJvlpyqpIOGATIQYAB3966-23-67 02:01:00 Test Item Value Reference Range Interpretation Comments Segs (test code = Segs) 54.8 45.0-75.0 [facility] HeightsQalkkhrNGIFHKITDF8811-90-72 02:01:00 Test Item Value Reference Range Interpretation Comments Eosinophils (test code = 2.4 See_Comment [A utomated message] The Eosinophils) system which ge nerated this result tra nsmitted reference range : <=4.0. The reference r kat was not used to int erpret this result as normal/abnormal . [facility] HeightsApgtaogLRQJBJYHOU4270-51-27 02:01:00 Test Item Value Reference Range Interpretation Comments Basophils # (test code 0.1 See_Comment [Aut omated message] The = Basophils #) system which generated this result tra nsmitted reference range : <=0.2. The reference r kat was not used to int erpret this result as normal/abnormal . [facility] HeightsUspwatrKPNPVSEKVV0219-89-18 02:01:00 Test Item Value Reference Range Interpretation Comments Microcyte (test code = 1+ *ABN*(09/17/15 Microcyte) 8:01 PM) [facility] HeightsFelxserFZPJZITJBX3041-82-78 02:01:00 Test Item Value Reference Range Interpretation Comments Eosinophils # (test code 0.2 See_Comment [A utomated message] The = Eosinophils #) system whic h generated this result tra nsmitted reference range : <=0.5. The reference r kat was not used to int erpret this result as normal/abnormal . [facility] HeightsLoxazinNSUJZAXNID8330-15-79 02:01:00 Test Item Value Reference Range Interpretation Comments MPV (test code = MPV) 10.0 7.4-10.4 [facility] HeightsIfnyydnHYPJKIMQRW5241-59-87 02:01:00 Test Item Value Reference Range Interpretation Comments RDW (test code = RDW) 16.9 11.5-14.5 [facility] HeightsOywwbliWHPUASHAQL5146-36-95 02:01:00 Test Item Value Reference Range Interpretation Comments Platelet (test code = Platelet) 208 133-450 [facility] HeightsRwcggbpABMKWSYQSG5622-48-70 02:01:00 Test Item Value Reference Range Interpretation Comments MCV (test code = MCV) 77.9 80.0-98.0 [facility] HeightsBxlsgilQOGZTMLJAO1372-01-04 02:01:00 Test Item Value Reference Range Interpretation Comments MCH (test code = MCH) 24.2 pg 27.0-31.0 [facility] HeightsYvbmzlsAQRYRBMHWD1628-38-22 02:01:00 Test Item Value Reference Range Interpretation Comments MCHC (test code = MCHC) 31.1 32.0-36.0 [facility] HeightsJvjxduySHSJKGBBOW1799-09-99 02:01:00 Test Item Value Reference Range Interpretation Comments Hgb (test code = Hgb) 13.3 12.0-16.0 [facility] HeightsUbiteynMKSDPBGXGY4311-04-86 02:01:00 Test Item Value Reference Range Interpretation Comments Hct (test code = Hct) 42.6 36.0-48.0 [facility] HeightsPvwsvijECRSFOMZXZ5719-18-82 02:01:00 Test Item Value Reference Range Interpretation Comments WBC (test code = WBC) 9.9 3.7-10.4 [facility] HeightsXtxwitwNZVUMNSMDO1269-77-37 02:01:00 Test Item Value Reference Range Interpretation Comments RBC (test code = RBC) 5.47 4.20-5.40 [facility]2016-01-20 02:01:00 Test Item Value Reference Range Interpretation Comments Lipase Lvl (test code = Lipase Lvl) 196 73-393 [facility]2016-01-20 02:01:00 Test Item Value Reference Range Interpretation Comments Amylase Lvl (test code = Amylase Lvl) 33 25-115 [facility]VymgtojRWNMXKJBGBBF1290-30-38 02:01:00 Test Item Value Reference Range Interpretation Comments AGAP (test code = AGAP) 10.7 10.0-20.0 [facility] HospitalZtkhoevWQFWDMXXBYDH7959-88-71 02:01:00 Test Item Value Reference Range Interpretation Comments A/G Ratio (test code = A/G Ratio) 1.2 0.7-1.6 [facility] HospitalEzyhstaHAXTUUOFCOYC5340-32-47 02:01:00 Test Item Value Reference Range Interpretation Comments Globulin (test code = Globulin) 3.1 2.0-4.0 [facility] HospitalLpsmnzbWUVFPWZCFGVN6235-79-72 02:01:00 Test Item Value Reference Range Interpretation Comments B/C Ratio (test code = B/C Ratio) 13 6-25 [facility] HospitalOlfihipLPADEQKBCPXR1352-18-36 02:01:00 Test Item Value Reference Range Interpretation Comments Total Protein (test code = Total 6.9 6.4-8.4 Protein) [facility] HospitalSifqtdiYPTZPPZYVVRO2769-28-08 02:01:00 Test Item Value Reference Range Interpretation Comments Calcium Lvl (test code = Calcium Lvl) 9.0 8.5-10.5 [facility] HospitalMqszlwrRJKENWADUDXE2008-35-78 02:01:00 Test Item Value Reference Range Interpretation Comments CO2 (test code = CO2) 26 24-32 [facility] HospitalRsodtteGKLYYQMURCKZ0320-28-12 02:01:00 Test Item Value Reference Range Interpretation Comments eGFR (test code = eGFR) 110 [facility] HospitalPzvmdtiQOBYCJCOIUEE2332-92-25 02:01:00 Test Item Value Reference Range Interpretation Comments Bili Total (test code = Bili Total) 0.3 0.2-1.3 [facility] HospitalGvwvedwQGZLSRMSRRLU6111-54-10 02:01:00 Test Item Value Reference Range Interpretation Comments Alk Phos (test code = Alk Phos) 84 39-136 [facility] HospitalQhwblpkYRWVTHBUCUPO7879-86-75 02:01:00 Test Item Value Reference Range Interpretation Comments AST (test code = AST) 17 See_Comment [Auto mated message] The system which ge nerated this result transmit arvind reference range : <=37. The reference range was not used to interpr et this result as mario l/abnormal. [facility] HospitalAdkokbqWWVKIKJHSLTT9158-26-41 02:01:00 Test Item Value Reference Range Interpretation Comments ALT (test code = ALT) 42 See_Comment [Auto mated message] The system which ge nerated this result transmit arvind reference range : <=65. The reference range was not used to interpr et this result as mario l/abnormal. [facility] HospitalGxpkqyhSKXXHGOMIEVN3153-51-92 02:01:00 Test Item Value Reference Range Interpretation Comments Albumin Lvl (test code = Albumin Lvl) 3.8 3.5-5.0 [facility] HospitalZvseltsLQLYVELQNPOS2432-40-37 02:01:00 Test Item Value Reference Range Interpretation Comments Sodium Lvl (test code = Sodium Lvl) 139 135-145 [facility] HospitalNfdeaqkKIOCGUVLEBPW3501-90-46 02:01:00 Test Item Value Reference Range Interpretation Comments Chloride Lvl (test code = Chloride Lvl) 106 95-109 [facility] HospitalCgwnptwDCZKIXWZKHND1739-69-45 02:01:00 Test Item Value Reference Range Interpretation Comments Potassium Lvl (test code = Potassium 3.7 3.5-5.1 Lvl) [facility] HospitalAxaztjpPHOJFBILLTWI6245-14-80 02:01:00 Test Item Value Reference Range Interpretation Comments BUN (test code = BUN) 10 7-22 [facility] HospitalDtbyocvRGLVLDCYVSGR8677-67-97 02:01:00 Test Item Value Reference Range Interpretation Comments Glucose Lvl (test code = Glucose Lvl) 88 70-99 [facility]XaesaptSZDGMFVOCWNN1217-11-53 02:01:00 Test Item Value Reference Range Interpretation Comments Creatinine Lvl (test code = Creatinine 0.76 0.50-1.40 Lvl) [facility] HeightsYecmsryDHONHRVHKO0204-70-73 02:01:00 Test Item Value Reference Range Interpretation Comments Segs-Bands # (test code = Segs-Bands #) 5.4 1.5-8.1 [facility] HeightsUtxeygeGBFYPZDYNH8308-00-08 02:01:00 Test Item Value Reference Range Interpretation Comments Basophils (test code = 1.0 See_Comment [Aut omated message] The Basophils) system which ge nerated this result tra nsmitted reference range : <=1.0. The reference r kat was not used to int erpret this result as normal/abnormal . [facility] HeightsVfrqkxoLHDALLTPOJ0626-03-71 02:01:00 Test Item Value Reference Range Interpretation Comments Monocytes # (test code 0.7 See_Comment [Aut omated message] The = Monocytes #) system which generated this result tra nsmitted reference range : <=0.8. The reference r kat was not used to int erpret this result as normal/abnormal . [facility] HeightsNgztusdLSMATRFWVB2828-21-46 02:01:00 Test Item Value Reference Range Interpretation Comments Lymphocytes (test code = Lymphocytes) 35.1 20.0-40.0 [facility] HeightsFdtfqdeQJGGJXNXBV6959-77-76 02:01:00 Test Item Value Reference Range Interpretation Comments Lymphocytes # (test code = Lymphocytes 3.5 1.0-5.5 #) [facility] HeightsMomezzjCYVCJTETPI6610-11-51 02:01:00 Test Item Value Reference Range Interpretation Comments Monocytes (test code = Monocytes) 6.7 2.0-12.0 [facility] HeightsYdygbxrXAEHTHFBET4095-14-47 02:01:00 Test Item Value Reference Range Interpretation Comments Segs (test code = Segs) 54.8 45.0-75.0 [facility] HeightsZweqxjpHVUUFAYJHA7349-60-83 02:01:00 Test Item Value Reference Range Interpretation Comments Eosinophils (test code = 2.4 See_Comment [A utomated message] The Eosinophils) system which ge nerated this result tra nsmitted reference range : <=4.0. The reference r kat was not used to int erpret this result as normal/abnormal . [facility] HeightsIxlzuuwUPVRDXHMCJ4041-45-95 02:01:00 Test Item Value Reference Range Interpretation Comments Basophils # (test code 0.1 See_Comment [Aut omated message] The = Basophils #) system which generated this result tra nsmitted reference range : <=0.2. The reference r kat was not used to int erpret this result as normal/abnormal . [facility] HeightsApfxfwrOIYQQDFRTI5595-80-04 02:01:00 Test Item Value Reference Range Interpretation Comments Microcyte (test code = 1+ *ABN*(09/17/15 Microcyte) 8:01 PM) [facility] HeightsGantpfgITYSELHMIC4062-23-21 02:01:00 Test Item Value Reference Range Interpretation Comments Eosinophils # (test code 0.2 See_Comment [A utomated message] The = Eosinophils #) system whic h generated this result tra nsmitted reference range : <=0.5. The reference r kat was not used to int erpret this result as normal/abnormal . [facility] HeightsIybapvpRJQLBWIGST4933-03-33 02:01:00 Test Item Value Reference Range Interpretation Comments MPV (test code = MPV) 10.0 7.4-10.4 [facility] HeightsIiohfrrBOPFALJOHN2982-97-83 02:01:00 Test Item Value Reference Range Interpretation Comments RDW (test code = RDW) 16.9 11.5-14.5 [facility] HeightsLkdisjlHXIRTGVCSS7484-59-27 02:01:00 Test Item Value Reference Range Interpretation Comments Platelet (test code = Platelet) 208 133-450 [facility] HeightsNxrnjbjWWZVDMRIWM5474-71-30 02:01:00 Test Item Value Reference Range Interpretation Comments MCV (test code = MCV) 77.9 80.0-98.0 [facility] HeightsIetewafDDGLCFVYFC6034-73-31 02:01:00 Test Item Value Reference Range Interpretation Comments MCH (test code = MCH) 24.2 pg 27.0-31.0 [facility] HeightsPontsxkHFLVFQZQZG9850-69-36 02:01:00 Test Item Value Reference Range Interpretation Comments MCHC (test code = MCHC) 31.1 32.0-36.0 [facility] HeightsNfzpdvgCQSRPMXQSI7040-09-35 02:01:00 Test Item Value Reference Range Interpretation Comments Hgb (test code = Hgb) 13.3 12.0-16.0 [facility] HeightsYbtvstiOPCWEGDEHV7214-40-61 02:01:00 Test Item Value Reference Range Interpretation Comments Hct (test code = Hct) 42.6 36.0-48.0 [facility] HeightsTvqgcfeGRXLAFYFJC3351-67-40 02:01:00 Test Item Value Reference Range Interpretation Comments WBC (test code = WBC) 9.9 3.7-10.4 [facility] HeightsAqodhdiNIXQQJSKCA5405-37-37 02:01:00 Test Item Value Reference Range Interpretation Comments RBC (test code = RBC) 5.47 4.20-5.40 [facility]2015-12-28 16:57:00 Test Item Value Reference Range Interpretation Comments eGFR (test code = eGFR) 86 [facility]2015-12-28 16:57:00 Test Item Value Reference Range Interpretation Comments Potassium Lvl (test code = Potassium 3.6 3.5-5.1 Lvl) [facility]2015-12-28 16:57:00 Test Item Value Reference Range Interpretation Comments CO2 (test code = CO2) 27 24-32 [facility]2015-12-28 16:57:00 Test Item Value Reference Range Interpretation Comments Chloride Lvl (test code = Chloride Lvl) 103 95-109 [facility]2015-12-28 16:57:00 Test Item Value Reference Range Interpretation Comments Calcium Lvl (test code = Calcium Lvl) 9.4 8.5-10.5 [facility]2015-12-28 16:57:00 Test Item Value Reference Range Interpretation Comments AST (test code = AST) 16 See_Comment [Auto mated message] The system which ge nerated this result transmit arvind reference range : <=37. The reference range was not used to interpr et this result as mario l/abnormal. [facility]2015-12-28 16:57:00 Test Item Value Reference Range Interpretation Comments ALT (test code = ALT) 43 See_Comment [Auto mated message] The system which ge nerated this result transmit arvind reference range : <=65. The reference range was not used to interpr et this result as mario l/abnormal. [facility]2015-12-28 16:57:00 Test Item Value Reference Range Interpretation Comments Alk Phos (test code = Alk Phos) 97 39-136 [place] 372445-12-28 16:57:00 Test Item Value Reference Range Interpretation Comments Albumin Lvl (test code = Albumin Lvl) 3.6 3.5-5.0 [facility]2015-12-28 16:57:00 Test Item Value Reference Range Interpretation Comments Total Protein (test code = Total 7.3 6.4-8.4 Protein) [facility]2015-12-28 16:57:00 Test Item Value Reference Range Interpretation Comments Bili Total (test code = Bili Total) 0.4 0.2-1.3 [facility]2015-12-28 16:57:00 Test Item Value Reference Range Interpretation Comments Glucose Lvl (test code = Glucose Lvl) 95 70-99 [facility]2015-12-28 16:57:00 Test Item Value Reference Range Interpretation Comments Creatinine Lvl (test code = Creatinine 0.93 0.50-1.40 Lvl) [facility]2015-12-28 16:57:00 Test Item Value Reference Range Interpretation Comments BUN (test code = BUN) 9 7-22 [facility]2015-12-28 16:57:00 Test Item Value Reference Range Interpretation Comments Sodium Lvl (test code = Sodium Lvl) 139 135-145 [facility]2015-12-28 16:57:00 Test Item Value Reference Range Interpretation Comments A/G Ratio (test code = A/G Ratio) 1.0 0.7-1.6 [facility]2015-12-28 16:57:00 Test Item Value Reference Range Interpretation Comments Globulin (test code = Globulin) 3.7 2.0-4.0 [facility]2015-12-28 16:57:00 Test Item Value Reference Range Interpretation Comments B/C Ratio (test code = B/C Ratio) 10 - [facility]2015-12-28 16:57:00 Test Item Value Reference Range Interpretation Comments AGAP (test code = AGAP) 12.6 10.0-20.0 [facility]WPALT6939-[facility]-37 16:57:00 Test Item Value Reference Range Interpretation Comments S Preg (test code = S Negative *NA*(08/26/15 Preg) 10:57 AM) [facility] HeightsAuaggntBQSUONHCPI2817-33-43 16:57:00 Test Item Value Reference Range Interpretation Comments Eosinophils # (test code 0.4 See_Comment [A utomated message] The = Eosinophils #) system whic h generated this result tra nsmitted reference range : <=0.5. The reference r kat was not used to int erpret this result as normal/abnormal . [facility] HeightsHlvkjrlRXZLNPWNZD5110-22-88 16:57:00 Test Item Value Reference Range Interpretation Comments Microcyte (test code = 1+ *ABN*(08/26/15 Microcyte) 10:57 AM) [facility] HeightsUedzjklDFQOWQDWMH5928-90-67 16:57:00 Test Item Value Reference Range Interpretation Comments Basophils # (test code 0.1 See_Comment [Aut omated message] The = Basophils #) system which generated this result tra nsmitted reference range : <=0.2. The reference r kat was not used to int erpret this result as normal/abnormal . [facility] HeightsJrotkcdYFOIVEPTGS7667-72-18 16:57:00 Test Item Value Reference Range Interpretation Comments Monocytes (test code = Monocytes) 8.6 2.0-12.0 [facility] HeightsSfbhhwyKMITWXDNYI1246-31-63 16:57:00 Test Item Value Reference Range Interpretation Comments Lymphocytes (test code = Lymphocytes) 40.6 20.0-40.0 [facility] HeightsYazxsigLFRFZOXWWH5098-84-37 16:57:00 Test Item Value Reference Range Interpretation Comments Eosinophils (test code = 5.0 See_Comment [A utomated message] The Eosinophils) system which ge nerated this result tra nsmitted reference range : <=4.0. The reference r kat was not used to int erpret this result as normal/abnormal . [facility] HeightsZukyuveDFRCCWTDBG5018-87-35 16:57:00 Test Item Value Reference Range Interpretation Comments Segs (test code = Segs) 44.8 45.0-75.0 [facility] HeightsHcamseoNLFVHKUDFJ1243-61-25 16:57:00 Test Item Value Reference Range Interpretation Comments Basophils (test code = 1.0 See_Comment [Aut omated message] The Basophils) system which ge nerated this result tra nsmitted reference range : <=1.0. The reference r kat was not used to int erpret this result as normal/abnormal . [place] 309205-12-28 16:57:00 Test Item Value Reference Range Interpretation Comments Segs-Bands # (test code = Segs-Bands #) 3.3 1.5-8.1 [facility] HeightsDrbvswyLGXOMBLHPC6777-92-23 16:57:00 Test Item Value Reference Range Interpretation Comments Monocytes # (test code 0.6 See_Comment [Aut omated message] The = Monocytes #) system which generated this result tra nsmitted reference range : <=0.8. The reference r kat was not used to int erpret this result as normal/abnormal . [facility] HeightsEicefdrKOQHGTYHGN6405-87-29 16:57:00 Test Item Value Reference Range Interpretation Comments Lymphocytes # (test code = Lymphocytes 3.0 1.0-5.5 #) [facility] HeightsCqxzkkePIGFSGALYN3760-97-46 16:57:00 Test Item Value Reference Range Interpretation Comments PT (test code = PT) 14.0 s 12.0-14.7 [facility] HeightsCscgketCIRAZEPVYH1232-86-52 16:57:00 Test Item Value Reference Range Interpretation Comments INR (test code = INR) 1.05 0.85-1.17 [facility] HeightsFwxlirdVUDIYGTJRM4538-34-15 16:57:00 Test Item Value Reference Range Interpretation Comments PTT (test code = PTT) 30.3 s 22.9-35.8 [facility] HeightsXyplxjdXQRMYFSRTF0885-76-00 16:57:00 Test Item Value Reference Range Interpretation Comments MPV (test code = MPV) 8.9 7.4-10.4 [facility] HeightsUdqpwygHHYAWEGHFX9876-13-01 16:57:00 Test Item Value Reference Range Interpretation Comments RDW (test code = RDW) 15.8 11.5-14.5 [facility] HeightsAeaxymwUCMLFIIYXQ9728-11-33 16:57:00 Test Item Value Reference Range Interpretation Comments Platelet (test code = Platelet) 271 133-450 [facility] HeightsJmruhviXBPHJXHOGD8947-30-46 16:57:00 Test Item Value Reference Range Interpretation Comments WBC (test code = WBC) 7.3 3.7-10.4 [facility] HeightsSwzchjsYXVVYHTWYZ3180-17-47 16:57:00 Test Item Value Reference Range Interpretation Comments RBC (test code = RBC) 5.14 4.20-5.40 [facility] HeightsOmkgiynBGAUGXPZOA6600-48-14 16:57:00 Test Item Value Reference Range Interpretation Comments MCV (test code = MCV) 77.9 80.0-98.0 [facility] HeightsAwbgvmxDFVUPECXDY7920-53-54 16:57:00 Test Item Value Reference Range Interpretation Comments MCH (test code = MCH) 23.9 pg 27.0-31.0 [facility] HeightsPgbqykvDFGJUQYEMH0644-81-45 16:57:00 Test Item Value Reference Range Interpretation Comments MCHC (test code = MCHC) 30.7 32.0-36.0 [facility] HeightsUnvrqihZZSBXSLDFM6709-75-79 16:57:00 Test Item Value Reference Range Interpretation Comments Hct (test code = Hct) 40.1 36.0-48.0 [facility] HeightsSugjddfDXKHOLNRVO8479-96-39 16:57:00 Test Item Value Reference Range Interpretation Comments Hgb (test code = Hgb) 12.3 12.0-16.0 [facility]2015-12-28 16:57:00 Test Item Value Reference Range Interpretation Comments eGFR (test code = eGFR) 86 [facility]2015-12-28 16:57:00 Test Item Value Reference Range Interpretation Comments Potassium Lvl (test code = Potassium 3.6 3.5-5.1 Lvl) [facility]2015-12-28 16:57:00 Test Item Value Reference Range Interpretation Comments CO2 (test code = CO2) 27 24-32 [facility]2015-12-28 16:57:00 Test Item Value Reference Range Interpretation Comments Chloride Lvl (test code = Chloride Lvl) 103 95-109 [facility]2015-12-28 16:57:00 Test Item Value Reference Range Interpretation Comments Calcium Lvl (test code = Calcium Lvl) 9.4 8.5-10.5 [facility]2015-12-28 16:57:00 Test Item Value Reference Range Interpretation Comments AST (test code = AST) 16 See_Comment [Auto mated message] The system which ge nerated this result transmit arvind reference range : <=37. The reference range was not used to interpr et this result as mario l/abnormal. [facility]2015-12-28 16:57:00 Test Item Value Reference Range Interpretation Comments ALT (test code = ALT) 43 See_Comment [Auto mated message] The system which ge nerated this result transmit arvind reference range : <=65. The reference range was not used to interpr et this result as mario l/abnormal. [facility]2015-12-28 16:57:00 Test Item Value Reference Range Interpretation Comments Alk Phos (test code = Alk Phos) 97 39-136 [facility]2015-12-28 16:57:00 Test Item Value Reference Range Interpretation Comments Albumin Lvl (test code = Albumin Lvl) 3.6 3.5-5.0 [facility]2015-12-28 16:57:00 Test Item Value Reference Range Interpretation Comments Total Protein (test code = Total 7.3 6.4-8.4 Protein) [facility]2015-12-28 16:57:00 Test Item Value Reference Range Interpretation Comments Bili Total (test code = Bili Total) 0.4 0.2-1.3 [facility]2015-12-28 16:57:00 Test Item Value Reference Range Interpretation Comments Glucose Lvl (test code = Glucose Lvl) 95 70-99 [facility]2015-12-28 16:57:00 Test Item Value Reference Range Interpretation Comments Creatinine Lvl (test code = Creatinine 0.93 0.50-1.40 Lvl) [facility]2015-12-28 16:57:00 Test Item Value Reference Range Interpretation Comments BUN (test code = BUN) 9 7-22 [facility]2015-12-28 16:57:00 Test Item Value Reference Range Interpretation Comments Sodium Lvl (test code = Sodium Lvl) 139 135-145 [facility]2015-12-28 16:57:00 Test Item Value Reference Range Interpretation Comments A/G Ratio (test code = A/G Ratio) 1.0 0.7-1.6 [facility]2015-12-28 16:57:00 Test Item Value Reference Range Interpretation Comments Globulin (test code = Globulin) 3.7 2.0-4.0 [place] 372445-12-28 16:57:00 Test Item Value Reference Range Interpretation Comments B/C Ratio (test code = B/C Ratio) 10 6-25 [facility]2015-12-28 16:57:00 Test Item Value Reference Range Interpretation Comments AGAP (test code = AGAP) 12.6 10.0-20.0 [facility]plytetJJZEAKRXGMNCK1809-69-47 16:57:00 Test Item Value Reference Range Interpretation Comments S Preg (test code = S Negative *NA*(08/26/15 Preg) 10:57 AM) [facility] HeightsEeiokhiVIWGAPCBOX7824-33-26 16:57:00 Test Item Value Reference Range Interpretation Comments Eosinophils # (test code 0.4 See_Comment [A utomated message] The = Eosinophils #) system whic h generated this result tra nsmitted reference range : <=0.5. The reference r kat was not used to int erpret this result as normal/abnormal . [facility] HeightsZegnozgPPBDOUTXAZ8541-22-75 16:57:00 Test Item Value Reference Range Interpretation Comments Microcyte (test code = 1+ *ABN*(08/26/15 Microcyte) 10:57 AM) [facility] HeightsLdsifdcEMXFOZLIIQ1758-18-65 16:57:00 Test Item Value Reference Range Interpretation Comments Basophils # (test code 0.1 See_Comment [Aut omated message] The = Basophils #) system which generated this result tra nsmitted reference range : <=0.2. The reference r kat was not used to int erpret this result as normal/abnormal . [facility] HeightsVdlphijLXFNKYAMQK1903-16-16 16:57:00 Test Item Value Reference Range Interpretation Comments Monocytes (test code = Monocytes) 8.6 2.0-12.0 [facility] HeightsVgphwjjFHLGSHTRQJ9391-85-18 16:57:00 Test Item Value Reference Range Interpretation Comments Lymphocytes (test code = Lymphocytes) 40.6 20.0-40.0 [facility] HeightsRsppbbbXRZDOIKIUB6554-11-30 16:57:00 Test Item Value Reference Range Interpretation Comments Eosinophils (test code = 5.0 See_Comment [A utomated message] The Eosinophils) system which ge nerated this result tra nsmitted reference range : <=4.0. The reference r kat was not used to int erpret this result as normal/abnormal . [facility] HeightsAgfolduPAJDASNLQU1642-90-57 16:57:00 Test Item Value Reference Range Interpretation Comments Segs (test code = Segs) 44.8 45.0-75.0 [facility] HeightsWnzbyniIRMIUEICXL2003-46-11 16:57:00 Test Item Value Reference Range Interpretation Comments Basophils (test code = 1.0 See_Comment [Aut omated message] The Basophils) system which ge nerated this result tra nsmitted reference range : <=1.0. The reference r kat was not used to int erpret this result as normal/abnormal . [facility] HeightsMqeonfqODRCKYGIEF5542-95-87 16:57:00 Test Item Value Reference Range Interpretation Comments Segs-Bands # (test code = Segs-Bands #) 3.3 1.5-8.1 [facility] HeightsLdzvucbWTZRYALEHH7162-87-31 16:57:00 Test Item Value Reference Range Interpretation Comments Monocytes # (test code 0.6 See_Comment [Aut omated message] The = Monocytes #) system which generated this result tra nsmitted reference range : <=0.8. The reference r kat was not used to int erpret this result as normal/abnormal . [facility] HeightsCnzigzuWYHRLEKHIS6079-67-50 16:57:00 Test Item Value Reference Range Interpretation Comments Lymphocytes # (test code = Lymphocytes 3.0 1.0-5.5 #) [facility] HeightsVdbbfurQATWLIVUJB8991-28-78 16:57:00 Test Item Value Reference Range Interpretation Comments PT (test code = PT) 14.0 s 12.0-14.7 [facility] HeightsBnbfuerDFIZSNFZYH3688-63-40 16:57:00 Test Item Value Reference Range Interpretation Comments INR (test code = INR) 1.05 0.85-1.17 [facility] HeightsJhymmhyKQRSVAMUTW2310-98-63 16:57:00 Test Item Value Reference Range Interpretation Comments PTT (test code = PTT) 30.3 s 22.9-35.8 [facility] HeightsOyvmlhcOBDIZSACOS1495-22-40 16:57:00 Test Item Value Reference Range Interpretation Comments MPV (test code = MPV) 8.9 7.4-10.4 [facility] HeightsUuxyjdsWBLZMLMWHC9451-40-38 16:57:00 Test Item Value Reference Range Interpretation Comments RDW (test code = RDW) 15.8 11.5-14.5 [facility] HeightsSnqoaukABHKTBALEJ1564-15-69 16:57:00 Test Item Value Reference Range Interpretation Comments Platelet (test code = Platelet) 271 133-450 [facility] HeightsAhrvfijNLFNXZQWVK5329-36-65 16:57:00 Test Item Value Reference Range Interpretation Comments WBC (test code = WBC) 7.3 3.7-10.4 [facility] HeightsQmtnxsfMNSEIRXMNE1437-18-97 16:57:00 Test Item Value Reference Range Interpretation Comments RBC (test code = RBC) 5.14 4.20-5.40 [facility] HeightsKapqxjwNUZTIAIJIH5777-55-06 16:57:00 Test Item Value Reference Range Interpretation Comments MCV (test code = MCV) 77.9 80.0-98.0 [facility] HeightsZmfjanyVTKHZHOVCI2062-31-28 16:57:00 Test Item Value Reference Range Interpretation Comments MCH (test code = MCH) 23.9 pg 27.0-31.0 [facility] HeightsFvigeseFOGMCYCCOF7052-69-73 16:57:00 Test Item Value Reference Range Interpretation Comments MCHC (test code = MCHC) 30.7 32.0-36.0 [facility] HeightsCfzmshoXRCRETBJBF6911-17-89 16:57:00 Test Item Value Reference Range Interpretation Comments Hct (test code = Hct) 40.1 36.0-48.0 [facility] HeightsHxegjigLOOFOAMKSW7851-37-48 16:57:00 Test Item Value Reference Range Interpretation Comments Hgb (test code = Hgb) 12.3 12.0-16.0 [facility]2015-12-28 16:57:00 Test Item Value Reference Range Interpretation Comments eGFR (test code = eGFR) 86 [facility]2015-12-28 16:57:00 Test Item Value Reference Range Interpretation Comments Potassium Lvl (test code = Potassium 3.6 3.5-5.1 Lvl) [facility]2015-12-28 16:57:00 Test Item Value Reference Range Interpretation Comments CO2 (test code = CO2) 27 24-32 [facility]2015-12-28 16:57:00 Test Item Value Reference Range Interpretation Comments Chloride Lvl (test code = Chloride Lvl) 103 95-109 [facility]2015-12-28 16:57:00 Test Item Value Reference Range Interpretation Comments Calcium Lvl (test code = Calcium Lvl) 9.4 8.5-10.5 [facility]2015-12-28 16:57:00 Test Item Value Reference Range Interpretation Comments AST (test code = AST) 16 See_Comment [Auto mated message] The system which ge nerated this result transmit arvind reference range : <=37. The reference range was not used to interpr et this result as mario l/abnormal. [facility]2015-12-28 16:57:00 Test Item Value Reference Range Interpretation Comments ALT (test code = ALT) 43 See_Comment [Auto mated message] The system which ge nerated this result transmit arvind reference range : <=65. The reference range was not used to interpr et this result as mario l/abnormal. [facility]2015-12-28 16:57:00 Test Item Value Reference Range Interpretation Comments Alk Phos (test code = Alk Phos) 97 39-136 [place] 372445-12-28 16:57:00 Test Item Value Reference Range Interpretation Comments Albumin Lvl (test code = Albumin Lvl) 3.6 3.5-5.0 [place] 372445-12-28 16:57:00 Test Item Value Reference Range Interpretation Comments Total Protein (test code = Total 7.3 6.4-8.4 Protein) [facility]2015-12-28 16:57:00 Test Item Value Reference Range Interpretation Comments Bili Total (test code = Bili Total) 0.4 0.2-1.3 [facility]2015-12-28 16:57:00 Test Item Value Reference Range Interpretation Comments Glucose Lvl (test code = Glucose Lvl) 95 70-99 [facility]2015-12-28 16:57:00 Test Item Value Reference Range Interpretation Comments Creatinine Lvl (test code = Creatinine 0.93 0.50-1.40 Lvl) [facility]2015-12-28 16:57:00 Test Item Value Reference Range Interpretation Comments BUN (test code = BUN) 9 7-22 [place] 372445-12-28 16:57:00 Test Item Value Reference Range Interpretation Comments Sodium Lvl (test code = Sodium Lvl) 139 135-145 [facility]2015-12-28 16:57:00 Test Item Value Reference Range Interpretation Comments A/G Ratio (test code = A/G Ratio) 1.0 0.7-1.6 [place] 372445-12-28 16:57:00 Test Item Value Reference Range Interpretation Comments Globulin (test code = Globulin) 3.7 2.0-4.0 [facility]2015-12-28 16:57:00 Test Item Value Reference Range Interpretation Comments B/C Ratio (test code = B/C Ratio) 10 6-25 [facility]2015-12-28 16:57:00 Test Item Value Reference Range Interpretation Comments AGAP (test code = AGAP) 12.6 10.0-20.0 [facility]jbcgSKFCCXEHFJNCN6564-02-37 16:57:00 Test Item Value Reference Range Interpretation Comments S Preg (test code = S Negative *NA*(08/26/15 Preg) 10:57 AM) [facility] HeightsWxdcyqjXVXZCDPIFQ9982-10-62 16:57:00 Test Item Value Reference Range Interpretation Comments Eosinophils # (test code 0.4 See_Comment [A utomated message] The = Eosinophils #) system whic h generated this result tra nsmitted reference range : <=0.5. The reference r kat was not used to int erpret this result as normal/abnormal . [facility] HeightsFhqpoccYIYIIRSZOR3894-59-96 16:57:00 Test Item Value Reference Range Interpretation Comments Microcyte (test code = 1+ *ABN*(08/26/15 Microcyte) 10:57 AM) [facility] HeightsQhctgqnOKHPEERLHM9479-60-31 16:57:00 Test Item Value Reference Range Interpretation Comments Basophils # (test code 0.1 See_Comment [Aut omated message] The = Basophils #) system which generated this result tra nsmitted reference range : <=0.2. The reference r kat was not used to int erpret this result as normal/abnormal . [facility] HeightsLdypogcGTNIDWJHWY1331-76-52 16:57:00 Test Item Value Reference Range Interpretation Comments Monocytes (test code = Monocytes) 8.6 2.0-12.0 [facility] HeightsBvlpfhtLFHWCBYUAR2656-23-33 16:57:00 Test Item Value Reference Range Interpretation Comments Lymphocytes (test code = Lymphocytes) 40.6 20.0-40.0 [facility] HeightsAsdshvtSHDILUKSQY2499-59-32 16:57:00 Test Item Value Reference Range Interpretation Comments Eosinophils (test code = 5.0 See_Comment [A utomated message] The Eosinophils) system which ge nerated this result tra nsmitted reference range : <=4.0. The reference r kat was not used to int erpret this result as normal/abnormal . [facility] HeightsXpcgxszPWSQFMFYHO5750-61-00 16:57:00 Test Item Value Reference Range Interpretation Comments Segs (test code = Segs) 44.8 45.0-75.0 [facility] HeightsIxahrazRVHHZLMPJA5990-20-14 16:57:00 Test Item Value Reference Range Interpretation Comments Basophils (test code = 1.0 See_Comment [Aut omated message] The Basophils) system which ge nerated this result tra nsmitted reference range : <=1.0. The reference r kat was not used to int erpret this result as normal/abnormal . [facility]BzmypwwPYBQEYSXEH3176-92-55 16:57:00 Test Item Value Reference Range Interpretation Comments Segs-Bands # (test code = Segs-Bands #) 3.3 1.5-8.1 [facility] HeightsWhhbssnFSQAGUAXHI3314-29-44 16:57:00 Test Item Value Reference Range Interpretation Comments Monocytes # (test code 0.6 See_Comment [Aut omated message] The = Monocytes #) system which generated this result tra nsmitted reference range : <=0.8. The reference r kat was not used to int erpret this result as normal/abnormal . [facility] HeightsGotztscHJQNMENDLH0115-32-15 16:57:00 Test Item Value Reference Range Interpretation Comments Lymphocytes # (test code = Lymphocytes 3.0 1.0-5.5 #) [facility] HeightsEucmyvqJCUGFIMSES5100-43-64 16:57:00 Test Item Value Reference Range Interpretation Comments PT (test code = PT) 14.0 s 12.0-14.7 [facility] HeightsPofsxfzWMTNNBCEAT4651-68-79 16:57:00 Test Item Value Reference Range Interpretation Comments INR (test code = INR) 1.05 0.85-1.17 [facility] HeightsPijcejcWPGPXWRGSJ7803-80-38 16:57:00 Test Item Value Reference Range Interpretation Comments PTT (test code = PTT) 30.3 s 22.9-35.8 [facility] HeightsCwqsiveROIGRISQQM9915-48-65 16:57:00 Test Item Value Reference Range Interpretation Comments MPV (test code = MPV) 8.9 7.4-10.4 [facility] HeightsTxikalaFCHLADLQKR9662-86-38 16:57:00 Test Item Value Reference Range Interpretation Comments RDW (test code = RDW) 15.8 11.5-14.5 [facility] HeightsMxsroqsMJNGVEJASS2753-29-16 16:57:00 Test Item Value Reference Range Interpretation Comments Platelet (test code = Platelet) 271 525-450 [facility] HeightsZtutqloWUMKDUIGLS3927-97-63 16:57:00 Test Item Value Reference Range Interpretation Comments WBC (test code = WBC) 7.3 3.7-10.4 [facility] HeightsCvewrawQAZRFBZFNK9186-02-26 16:57:00 Test Item Value Reference Range Interpretation Comments RBC (test code = RBC) 5.14 4.20-5.40 [facility] HeightsTgqoflzPSLEWOAEZK2154-55-07 16:57:00 Test Item Value Reference Range Interpretation Comments MCV (test code = MCV) 77.9 80.0-98.0 [facility] HeightsVtdvcxiVELIKKEJKO1822-11-06 16:57:00 Test Item Value Reference Range Interpretation Comments MCH (test code = MCH) 23.9 pg 27.0-31.0 [facility] HeightsZokqsqoPCALHPTQTQ3325-80-76 16:57:00 Test Item Value Reference Range Interpretation Comments MCHC (test code = MCHC) 30.7 32.0-36.0 [facility] HeightsRjmylaoTQIZIMDJLJ2110-79-10 16:57:00 Test Item Value Reference Range Interpretation Comments Hct (test code = Hct) 40.1 36.0-48.0 [facility] HeightsBuoktdmXWIORXRHCM9200-89-60 16:57:00 Test Item Value Reference Range Interpretation Comments Hgb (test code = Hgb) 12.3 12.0-16.0 [facility]2015-12-28 16:57:00 Test Item Value Reference Range Interpretation Comments eGFR (test code = eGFR) 86 [facility]2015-12-28 16:57:00 Test Item Value Reference Range Interpretation Comments Potassium Lvl (test code = Potassium 3.6 3.5-5.1 Lvl) [facility]2015-12-28 16:57:00 Test Item Value Reference Range Interpretation Comments CO2 (test code = CO2) 27 24-32 [facility]2015-12-28 16:57:00 Test Item Value Reference Range Interpretation Comments Chloride Lvl (test code = Chloride Lvl) 103 95-109 [facility]2015-12-28 16:57:00 Test Item Value Reference Range Interpretation Comments Calcium Lvl (test code = Calcium Lvl) 9.4 8.5-10.5 [facility]2015-12-28 16:57:00 Test Item Value Reference Range Interpretation Comments AST (test code = AST) 16 See_Comment [Auto mated message] The system which ge nerated this result transmit arvind reference range : <=37. The reference range was not used to interpr et this result as mario l/abnormal. [facility]2015-12-28 16:57:00 Test Item Value Reference Range Interpretation Comments ALT (test code = ALT) 43 See_Comment [Auto mated message] The system which ge nerated this result transmit arvind reference range : <=65. The reference range was not used to interpr et this result as mario l/abnormal. [place] 372445-12-28 16:57:00 Test Item Value Reference Range Interpretation Comments Alk Phos (test code = Alk Phos) 97 39-136 [facility]2015-12-28 16:57:00 Test Item Value Reference Range Interpretation Comments Albumin Lvl (test code = Albumin Lvl) 3.6 3.5-5.0 [place] 372445-12-28 16:57:00 Test Item Value Reference Range Interpretation Comments Total Protein (test code = Total 7.3 6.4-8.4 Protein) [place] 372445-12-28 16:57:00 Test Item Value Reference Range Interpretation Comments Bili Total (test code = Bili Total) 0.4 0.2-1.3 [facility]2015-12-28 16:57:00 Test Item Value Reference Range Interpretation Comments Glucose Lvl (test code = Glucose Lvl) 95 70-99 [place] 372445-12-28 16:57:00 Test Item Value Reference Range Interpretation Comments Creatinine Lvl (test code = Creatinine 0.93 0.50-1.40 Lvl) [facility]2015-12-28 16:57:00 Test Item Value Reference Range Interpretation Comments BUN (test code = BUN) 9 7-22 [place] 372445-12-28 16:57:00 Test Item Value Reference Range Interpretation Comments Sodium Lvl (test code = Sodium Lvl) 139 135-145 [facility]2015-12-28 16:57:00 Test Item Value Reference Range Interpretation Comments A/G Ratio (test code = A/G Ratio) 1.0 0.7-1.6 [facility]2015-12-28 16:57:00 Test Item Value Reference Range Interpretation Comments Globulin (test code = Globulin) 3.7 2.0-4.0 [facility]2015-12-28 16:57:00 Test Item Value Reference Range Interpretation Comments B/C Ratio (test code = B/C Ratio) 10 6-25 [facility]2015-12-28 16:57:00 Test Item Value Reference Range Interpretation Comments AGAP (test code = AGAP) 12.6 10.0-20.0 [place] 88827015-12-28 16:57:00 Test Item Value Reference Range Interpretation Comments S Preg (test code = S Negative *NA*(08/26/15 Preg) 10:57 AM) [facility] HeightsDenizolIHLPWUSTWX6458-40-79 16:57:00 Test Item Value Reference Range Interpretation Comments Eosinophils # (test code 0.4 See_Comment [A utomated message] The = Eosinophils #) system whic h generated this result tra nsmitted reference range : <=0.5. The reference r kat was not used to int erpret this result as normal/abnormal . [facility] HeightsEryctmyEAGIIOPDJX8177-02-21 16:57:00 Test Item Value Reference Range Interpretation Comments Microcyte (test code = 1+ *ABN*(08/26/15 Microcyte) 10:57 AM) [facility] HeightsOjwhyerGQHXZLQFDQ9398-40-24 16:57:00 Test Item Value Reference Range Interpretation Comments Basophils # (test code 0.1 See_Comment [Aut omated message] The = Basophils #) system which generated this result tra nsmitted reference range : <=0.2. The reference r kat was not used to int erpret this result as normal/abnormal . [facility] HeightsTbgjaqcOVEWBBSJXQ8917-83-90 16:57:00 Test Item Value Reference Range Interpretation Comments Monocytes (test code = Monocytes) 8.6 2.0-12.0 [facility] HeightsDrytpsfPHANJMXMOA0972-64-29 16:57:00 Test Item Value Reference Range Interpretation Comments Lymphocytes (test code = Lymphocytes) 40.6 20.0-40.0 [facility] HeightsLrfrdfuQTJUEQMTAU0286-34-53 16:57:00 Test Item Value Reference Range Interpretation Comments Eosinophils (test code = 5.0 See_Comment [A utomated message] The Eosinophils) system which ge nerated this result tra nsmitted reference range : <=4.0. The reference r kat was not used to int erpret this result as normal/abnormal . [facility] HeightsIhxjingAXQCEUNEJE7567-59-84 16:57:00 Test Item Value Reference Range Interpretation Comments Segs (test code = Segs) 44.8 45.0-75.0 [facility] HeightsPcjxzyaMDOYEXIPKY7075-03-64 16:57:00 Test Item Value Reference Range Interpretation Comments Basophils (test code = 1.0 See_Comment [Aut omated message] The Basophils) system which ge nerated this result tra nsmitted reference range : <=1.0. The reference r kat was not used to int erpret this result as normal/abnormal . [facility] HeightsFlqwzrfABIQRYPUBY2896-46-66 16:57:00 Test Item Value Reference Range Interpretation Comments Segs-Bands # (test code = Segs-Bands #) 3.3 1.5-8.1 [facility] HeightsAodqmdqFXDOXENVSE3244-58-31 16:57:00 Test Item Value Reference Range Interpretation Comments Monocytes # (test code 0.6 See_Comment [Aut omated message] The = Monocytes #) system which generated this result tra nsmitted reference range : <=0.8. The reference r kat was not used to int erpret this result as normal/abnormal . [facility] HeightsRdlwieqRNJSQVOOKK8581-50-16 16:57:00 Test Item Value Reference Range Interpretation Comments Lymphocytes # (test code = Lymphocytes 3.0 1.0-5.5 #) [facility] HeightsEfpeajaQSNQGZNCME3462-47-09 16:57:00 Test Item Value Reference Range Interpretation Comments PT (test code = PT) 14.0 s 12.0-14.7 [facility] HeightsNkfrgkjLQWQAVXDJT6834-77-96 16:57:00 Test Item Value Reference Range Interpretation Comments INR (test code = INR) 1.05 0.85-1.17 [facility] HeightsEkhmvxiZDZZMVKYNP9407-17-09 16:57:00 Test Item Value Reference Range Interpretation Comments PTT (test code = PTT) 30.3 s 22.9-35.8 [facility] HeightsDyrgdwgYUDUWCYTBF7070-94-14 16:57:00 Test Item Value Reference Range Interpretation Comments MPV (test code = MPV) 8.9 7.4-10.4 [facility] HeightsMcmrtirMVSJLORASF8655-65-97 16:57:00 Test Item Value Reference Range Interpretation Comments RDW (test code = RDW) 15.8 11.5-14.5 [facility] HeightsAzyrlzsPSDBLBKTUX7355-07-11 16:57:00 Test Item Value Reference Range Interpretation Comments Platelet (test code = Platelet) 271 133-450 [facility] HeightsMjmvhnqJSFTLCEYSA3276-19-45 16:57:00 Test Item Value Reference Range Interpretation Comments WBC (test code = WBC) 7.3 3.7-10.4 [facility] HeightsWrcebjxYZUSCMJYHS7632-61-22 16:57:00 Test Item Value Reference Range Interpretation Comments RBC (test code = RBC) 5.14 4.20-5.40 [facility] HeightsFmbkzxiAMEFWNGLLE6770-76-57 16:57:00 Test Item Value Reference Range Interpretation Comments MCV (test code = MCV) 77.9 80.0-98.0 [facility] HeightsHdnllbfUIOUFLZCGQ2998-33-11 16:57:00 Test Item Value Reference Range Interpretation Comments MCH (test code = MCH) 23.9 pg 27.0-31.0 [facility] HeightsBrnxqmuSPMNQERNOQ9751-16-85 16:57:00 Test Item Value Reference Range Interpretation Comments MCHC (test code = MCHC) 30.7 32.0-36.0 [facility] HeightsVhcufjpIJBRUIGZFI3884-68-23 16:57:00 Test Item Value Reference Range Interpretation Comments Hct (test code = Hct) 40.1 36.0-48.0 [facility] HeightsOdykftuADZDWPYVOD8303-70-58 16:57:00 Test Item Value Reference Range Interpretation Comments Hgb (test code = Hgb) 12.3 12.0-16.0 [facility]2015-12-28 16:57:00 Test Item Value Reference Range Interpretation Comments eGFR (test code = eGFR) 86 [facility]2015-12-28 16:57:00 Test Item Value Reference Range Interpretation Comments Potassium Lvl (test code = Potassium 3.6 3.5-5.1 Lvl) [facility]2015-12-28 16:57:00 Test Item Value Reference Range Interpretation Comments CO2 (test code = CO2) 27 24-32 [facility]2015-12-28 16:57:00 Test Item Value Reference Range Interpretation Comments Chloride Lvl (test code = Chloride Lvl) 103 95-109 [place] 372445-12-28 16:57:00 Test Item Value Reference Range Interpretation Comments Calcium Lvl (test code = Calcium Lvl) 9.4 8.5-10.5 [facility]2015-12-28 16:57:00 Test Item Value Reference Range Interpretation Comments AST (test code = AST) 16 See_Comment [Auto mated message] The system which ge nerated this result transmit arvind reference range : <=37. The reference range was not used to interpr et this result as mario l/abnormal. [place] 372445-12-28 16:57:00 Test Item Value Reference Range Interpretation Comments ALT (test code = ALT) 43 See_Comment [Auto mated message] The system which ge nerated this result transmit arvind reference range : <=65. The reference range was not used to interpr et this result as mario l/abnormal. [facility]2015-12-28 16:57:00 Test Item Value Reference Range Interpretation Comments Alk Phos (test code = Alk Phos) 97 39-136 [facility]2015-12-28 16:57:00 Test Item Value Reference Range Interpretation Comments Albumin Lvl (test code = Albumin Lvl) 3.6 3.5-5.0 [facility]2015-12-28 16:57:00 Test Item Value Reference Range Interpretation Comments Total Protein (test code = Total 7.3 6.4-8.4 Protein) [facility]2015-12-28 16:57:00 Test Item Value Reference Range Interpretation Comments Bili Total (test code = Bili Total) 0.4 0.2-1.3 [facility]2015-12-28 16:57:00 Test Item Value Reference Range Interpretation Comments Glucose Lvl (test code = Glucose Lvl) 95 70-99 [facility]2015-12-28 16:57:00 Test Item Value Reference Range Interpretation Comments Creatinine Lvl (test code = Creatinine 0.93 0.50-1.40 Lvl) [facility]2015-12-28 16:57:00 Test Item Value Reference Range Interpretation Comments BUN (test code = BUN) 9 7- [facility]2015-12-28 16:57:00 Test Item Value Reference Range Interpretation Comments Sodium Lvl (test code = Sodium Lvl) 139 135-145 [facility]2015-12-28 16:57:00 Test Item Value Reference Range Interpretation Comments A/G Ratio (test code = A/G Ratio) 1.0 0.7-1.6 [facility]2015-12-28 16:57:00 Test Item Value Reference Range Interpretation Comments Globulin (test code = Globulin) 3.7 2.0-4.0 [facility]2015-12-28 16:57:00 Test Item Value Reference Range Interpretation Comments B/C Ratio (test code = B/C Ratio) 10 - [facility]2015-12-28 16:57:00 Test Item Value Reference Range Interpretation Comments AGAP (test code = AGAP) 12.6 10.0-20.0 [facility]wzwCKUFMFVKXFNCN3575-83-86 16:57:00 Test Item Value Reference Range Interpretation Comments S Preg (test code = S Negative *NA*(08/26/15 Preg) 10:57 AM) [facility] HeightsPsaccuiUJAHWFZPKI6397-87-18 16:57:00 Test Item Value Reference Range Interpretation Comments Eosinophils # (test code 0.4 See_Comment [A utomated message] The = Eosinophils #) system [facility] generated this result tra nsmitted reference range : <=0.5. The reference r kat was not used to int erpret this result as normal/abnormal . [facility] HeightsCkhdzryWMWGLKVWDK2189-55-87 16:57:00 Test Item Value Reference Range Interpretation Comments Microcyte (test code = 1+ *ABN*(08/26/15 Microcyte) 10:57 AM) [facility] HeightsKgjrofqZIHDUCDFGQ6527-10-74 16:57:00 Test Item Value Reference Range Interpretation Comments Basophils # (test code 0.1 See_Comment [Aut omated message] The = Basophils #) system which generated this result tra nsmitted reference range : <=0.2. The reference r kat was not used to int erpret this result as normal/abnormal . [facility] HeightsLbmykhhMNHZTVJQXZ5932-29-53 16:57:00 Test Item Value Reference Range Interpretation Comments Monocytes (test code = Monocytes) 8.6 2.0-12.0 [facility] HeightsLocrubqHWCIERIXQZ5460-93-28 16:57:00 Test Item Value Reference Range Interpretation Comments Lymphocytes (test code = Lymphocytes) 40.6 20.0-40.0 [facility] HeightsNjefjwaBWJWNFGYVA7795-42-43 16:57:00 Test Item Value Reference Range Interpretation Comments Eosinophils (test code = 5.0 See_Comment [A utomated message] The Eosinophils) system which ge nerated this result tra nsmitted reference range : <=4.0. The reference r kat was not used to int erpret this result as normal/abnormal . [facility] HeightsBycosaiFWEFPQSSRB9179-87-51 16:57:00 Test Item Value Reference Range Interpretation Comments Segs (test code = Segs) 44.8 45.0-75.0 [facility] HeightsPsyvetyNPYHNTJPRP6209-34-90 16:57:00 Test Item Value Reference Range Interpretation Comments Basophils (test code = 1.0 See_Comment [Aut omated message] The Basophils) system which ge nerated this result tra nsmitted reference range : <=1.0. The reference r kat was not used to int erpret this result as normal/abnormal . [facility] HeightsOqcrrpoFVJHJOXGMX1591-96-27 16:57:00 Test Item Value Reference Range Interpretation Comments Segs-Bands # (test code = Segs-Bands #) 3.3 1.5-8.1 [facility] HeightsAoggattXXJNEFJXKQ9805-93-71 16:57:00 Test Item Value Reference Range Interpretation Comments Monocytes # (test code 0.6 See_Comment [Aut omated message] The = Monocytes #) system which generated this result tra nsmitted reference range : <=0.8. The reference r kat was not used to int erpret this result as normal/abnormal . [facility] HeightsPtncxozYFDCNXRGFS4626-23-03 16:57:00 Test Item Value Reference Range Interpretation Comments Lymphocytes # (test code = Lymphocytes 3.0 1.0-5.5 #) [facility] HeightsCpayvuvXSIMPHOHHD8914-65-62 16:57:00 Test Item Value Reference Range Interpretation Comments PT (test code = PT) 14.0 s 12.0-14.7 [facility] HeightsCzmbmpjAKTUJBLDLX7918-80-81 16:57:00 Test Item Value Reference Range Interpretation Comments INR (test code = INR) 1.05 0.85-1.17 [facility] HeightsAebzgynUUVMYUJGDZ4094-65-00 16:57:00 Test Item Value Reference Range Interpretation Comments PTT (test code = PTT) 30.3 s 22.9-35.8 [facility] HeightsUzkxdwtKAKZVJDKKX8981-83-64 16:57:00 Test Item Value Reference Range Interpretation Comments MPV (test code = MPV) 8.9 7.4-10.4 [facility] HeightsGrgwhtxIMXEYSPMFQ5782-04-33 16:57:00 Test Item Value Reference Range Interpretation Comments RDW (test code = RDW) 15.8 11.5-14.5 [facility] HeightsOgnzfgpLJDDUYWBOX2398-57-63 16:57:00 Test Item Value Reference Range Interpretation Comments Platelet (test code = Platelet) 271 133-450 [facility] HeightsHihbyhtXNBFHNDXFL2612-15-57 16:57:00 Test Item Value Reference Range Interpretation Comments WBC (test code = WBC) 7.3 3.7-10.4 [facility] HeightsDjpqmgqGHTYUFEELC4021-01-85 16:57:00 Test Item Value Reference Range Interpretation Comments RBC (test code = RBC) 5.14 4.20-5.40 [facility] HeightsEvptjziBHWPTIRZAR5894-80-97 16:57:00 Test Item Value Reference Range Interpretation Comments MCV (test code = MCV) 77.9 80.0-98.0 [facility] HeightsLuwviiwEANHAVFWVC2614-13-82 16:57:00 Test Item Value Reference Range Interpretation Comments MCH (test code = MCH) 23.9 pg 27.0-31.0 [facility] HeightsIzjzjcwTEHIJONSDQ6803-77-98 16:57:00 Test Item Value Reference Range Interpretation Comments MCHC (test code = MCHC) 30.7 32.0-36.0 [facility] HeightsCheumntTJUJUHFNEB3556-76-20 16:57:00 Test Item Value Reference Range Interpretation Comments Hct (test code = Hct) 40.1 36.0-48.0 [facility] HeightsRbvmftzRWEBGTAZVL8290-05-80 16:57:00 Test Item Value Reference Range Interpretation Comments Hgb (test code = Hgb) 12.3 12.0-16.0 [facility]2015-12-28 16:57:00 Test Item Value Reference Range Interpretation Comments eGFR (test code = eGFR) 86 [facility]2015-12-28 16:57:00 Test Item Value Reference Range Interpretation Comments Potassium Lvl (test code = Potassium 3.6 3.5-5.1 Lvl) [place] 372445-12-28 16:57:00 Test Item Value Reference Range Interpretation Comments CO2 (test code = CO2) 27 24-32 [facility]2015-12-28 16:57:00 Test Item Value Reference Range Interpretation Comments Chloride Lvl (test code = Chloride Lvl) 103 95-109 [facility]2015-12-28 16:57:00 Test Item Value Reference Range Interpretation Comments Calcium Lvl (test code = Calcium Lvl) 9.4 8.5-10.5 [facility]2015-12-28 16:57:00 Test Item Value Reference Range Interpretation Comments AST (test code = AST) 16 See_Comment [Auto mated message] The system which ge nerated this result transmit arvind reference range : <=37. The reference range was not used to interpr et this result as mario l/abnormal. [facility]2015-12-28 16:57:00 Test Item Value Reference Range Interpretation Comments ALT (test code = ALT) 43 See_Comment [Auto mated message] The system which ge nerated this result transmit arvind reference range : <=65. The reference range was not used to interpr et this result as mario l/abnormal. [facility]2015-12-28 16:57:00 Test Item Value Reference Range Interpretation Comments Alk Phos (test code = Alk Phos) 97 39-136 [facility]2015-12-28 16:57:00 Test Item Value Reference Range Interpretation Comments Albumin Lvl (test code = Albumin Lvl) 3.6 3.5-5.0 [facility]2015-12-28 16:57:00 Test Item Value Reference Range Interpretation Comments Total Protein (test code = Total 7.3 6.4-8.4 Protein) [facility]2015-12-28 16:57:00 Test Item Value Reference Range Interpretation Comments Bili Total (test code = Bili Total) 0.4 0.2-1.3 [facility]2015-12-28 16:57:00 Test Item Value Reference Range Interpretation Comments Glucose Lvl (test code = Glucose Lvl) 95 70-99 [facility]2015-12-28 16:57:00 Test Item Value Reference Range Interpretation Comments Creatinine Lvl (test code = Creatinine 0.93 0.50-1.40 Lvl) [facility]2015-12-28 16:57:00 Test Item Value Reference Range Interpretation Comments BUN (test code = BUN) 9 7- [facility]2015-12-28 16:57:00 Test Item Value Reference Range Interpretation Comments Sodium Lvl (test code = Sodium Lvl) 139 135-145 [facility]2015-12-28 16:57:00 Test Item Value Reference Range Interpretation Comments A/G Ratio (test code = A/G Ratio) 1.0 0.7-1.6 [place] 372445-12-28 16:57:00 Test Item Value Reference Range Interpretation Comments Globulin (test code = Globulin) 3.7 2.0-4.0 [facility]2015-12-28 16:57:00 Test Item Value Reference Range Interpretation Comments B/C Ratio (test code = B/C Ratio) 10 - [facility]2015-12-28 16:57:00 Test Item Value Reference Range Interpretation Comments AGAP (test code = AGAP) 12.6 10.0-20.0 [facility]OkjafymPCSURTVTDZPXC8372-87-43 16:57:00 Test Item Value Reference Range Interpretation Comments S Preg (test code = S Negative *NA*(08/26/15 Preg) 10:57 AM) [facility] HeightsOxezozfAHPUPXXIRS0806-49-56 16:57:00 Test Item Value Reference Range Interpretation Comments Eosinophils # (test code 0.4 See_Comment [A utomated message] The = Eosinophils #) system whic h generated this result tra nsmitted reference range : <=0.5. The reference r kat was not used to int erpret this result as normal/abnormal . [facility]XnctchdNJJQMFBIXX7396-41-22 16:57:00 Test Item Value Reference Range Interpretation Comments Microcyte (test code = 1+ *ABN*(08/26/15 Microcyte) 10:57 AM) [facility] HeightsShntqwsVWUUKUJDTL6584-39-18 16:57:00 Test Item Value Reference Range Interpretation Comments Basophils # (test code 0.1 See_Comment [Aut omated message] The = Basophils #) system which generated this result tra nsmitted reference range : <=0.2. The reference r kat was not used to int erpret this result as normal/abnormal . [facility] HeightsByquaycYXZPVGGTJL0060-05-72 16:57:00 Test Item Value Reference Range Interpretation Comments Monocytes (test code = Monocytes) 8.6 2.0-12.0 [facility] HeightsXtbejcxXVMFSPOAAY5544-46-95 16:57:00 Test Item Value Reference Range Interpretation Comments Lymphocytes (test code = Lymphocytes) 40.6 20.0-40.0 [facility] HeightsCrodmotFKTPSOAEPL3461-40-58 16:57:00 Test Item Value Reference Range Interpretation Comments Eosinophils (test code = 5.0 See_Comment [A utomated message] The Eosinophils) system which ge nerated this result tra nsmitted reference range : <=4.0. The reference r kat was not used to int erpret this result as normal/abnormal . [facility] HeightsFybpfdoJTOBEXGOEG4883-07-02 16:57:00 Test Item Value Reference Range Interpretation Comments Segs (test code = Segs) 44.8 45.0-75.0 [facility] HeightsGdagaaiHGLWOYUZBX7083-37-82 16:57:00 Test Item Value Reference Range Interpretation Comments Basophils (test code = 1.0 See_Comment [Aut omated message] The Basophils) system which ge nerated this result tra nsmitted reference range : <=1.0. The reference r kat was not used to int erpret this result as normal/abnormal . [facility] HeightsRhognowYOMVLICDAN7166-98-00 16:57:00 Test Item Value Reference Range Interpretation Comments Segs-Bands # (test code = Segs-Bands #) 3.3 1.5-8.1 [facility] HeightsPhzlwggRHLXTQRBPZ0352-27-55 16:57:00 Test Item Value Reference Range Interpretation Comments Monocytes # (test code 0.6 See_Comment [Aut omated message] The = Monocytes #) system which generated this result tra nsmitted reference range : <=0.8. The reference r kat was not used to int erpret this result as normal/abnormal . [facility] HeightsQaurxqxAOQBXFIPLP2310-30-33 16:57:00 Test Item Value Reference Range Interpretation Comments Lymphocytes # (test code = Lymphocytes 3.0 1.0-5.5 #) [facility] HeightsDireynmZYWPVAYQGD8177-89-34 16:57:00 Test Item Value Reference Range Interpretation Comments PT (test code = PT) 14.0 s 12.0-14.7 [place] 309205-12-28 16:57:00 Test Item Value Reference Range Interpretation Comments INR (test code = INR) 1.05 0.85-1.17 [place] 309205-12-28 16:57:00 Test Item Value Reference Range Interpretation Comments PTT (test code = PTT) 30.3 s 22.9-35.8 [place] 309205-12-28 16:57:00 Test Item Value Reference Range Interpretation Comments MPV (test code = MPV) 8.9 7.4-10.4 [facility] HeightsDufrwrfVKFNLLLQTF0295-86-23 16:57:00 Test Item Value Reference Range Interpretation Comments RDW (test code = RDW) 15.8 11.5-14.5 [facility] HeightsBebzamyYYCSOKTWHT2475-58-11 16:57:00 Test Item Value Reference Range Interpretation Comments Platelet (test code = Platelet) 271 133-450 [facility] HeightsXvqqdcvRZMFASBOFA4391-49-95 16:57:00 Test Item Value Reference Range Interpretation Comments WBC (test code = WBC) 7.3 3.7-10.4 [facility]2015-12-28 16:57:00 Test Item Value Reference Range Interpretation Comments eGFR (test code = eGFR) 86 [facility]2015-12-28 16:57:00 Test Item Value Reference Range Interpretation Comments Potassium Lvl (test code = Potassium 3.6 3.5-5.1 Lvl) [facility]2015-12-28 16:57:00 Test Item Value Reference Range Interpretation Comments CO2 (test code = CO2) 27 24-32 [facility]2015-12-28 16:57:00 Test Item Value Reference Range Interpretation Comments Chloride Lvl (test code = Chloride Lvl) 103 95-109 [facility]2015-12-28 16:57:00 Test Item Value Reference Range Interpretation Comments Calcium Lvl (test code = Calcium Lvl) 9.4 8.5-10.5 [facility]2015-12-28 16:57:00 Test Item Value Reference Range Interpretation Comments AST (test code = AST) 16 See_Comment [Auto mated message] The system which ge nerated this result transmit arvind reference range : <=37. The reference range was not used to interpr et this result as mario l/abnormal. [facility] HeightsNxkcgnbRJFHFDZIKR8806-36-86 16:57:00 Test Item Value Reference Range Interpretation Comments RBC (test code = RBC) 5.14 4.20-5.40 [facility]2015-12-28 16:57:00 Test Item Value Reference Range Interpretation Comments ALT (test code = ALT) 43 See_Comment [Auto mated message] The system which ge nerated this result transmit arvind reference range : <=65. The reference range was not used to interpr et this result as mario l/abnormal. [facility]2015-12-28 16:57:00 Test Item Value Reference Range Interpretation Comments Alk Phos (test code = Alk Phos) 97 39-136 [facility]2015-12-28 16:57:00 Test Item Value Reference Range Interpretation Comments Albumin Lvl (test code = Albumin Lvl) 3.6 3.5-5.0 [facility]2015-12-28 16:57:00 Test Item Value Reference Range Interpretation Comments Total Protein (test code = Total 7.3 6.4-8.4 Protein) [facility]2015-12-28 16:57:00 Test Item Value Reference Range Interpretation Comments Bili Total (test code = Bili Total) 0.4 0.2-1.3 [facility]2015-12-28 16:57:00 Test Item Value Reference Range Interpretation Comments Glucose Lvl (test code = Glucose Lvl) 95 70-99 [facility]2015-12-28 16:57:00 Test Item Value Reference Range Interpretation Comments Creatinine Lvl (test code = Creatinine 0.93 0.50-1.40 Lvl) [facility]2015-12-28 16:57:00 Test Item Value Reference Range Interpretation Comments BUN (test code = BUN) 9 7-22 [facility]2015-12-28 16:57:00 Test Item Value Reference Range Interpretation Comments Sodium Lvl (test code = Sodium Lvl) 139 135-145 [facility]2015-12-28 16:57:00 Test Item Value Reference Range Interpretation Comments A/G Ratio (test code = A/G Ratio) 1.0 0.7-1.6 [facility] HeightsLikxdvdQBYWXBMSLB8787-35-53 16:57:00 Test Item Value Reference Range Interpretation Comments MCV (test code = MCV) 77.9 80.0-98.0 [facility]2015-12-28 16:57:00 Test Item Value Reference Range Interpretation Comments Globulin (test code = Globulin) 3.7 2.0-4.0 [facility]2015-12-28 16:57:00 Test Item Value Reference Range Interpretation Comments B/C Ratio (test code = B/C Ratio) 10 6-25 [facility]2015-12-28 16:57:00 Test Item Value Reference Range Interpretation Comments AGAP (test code = AGAP) 12.6 10.0-20.0 [place] 88827015-12-28 16:57:00 Test Item Value Reference Range Interpretation Comments S Preg (test code = S Negative *NA*(08/26/15 Preg) 10:57 AM) [facility] HeightsXoaebpaVHZIDFRFOS4262-08-64 16:57:00 Test Item Value Reference Range Interpretation Comments Eosinophils # (test code 0.4 See_Comment [A utomated message] The = Eosinophils #) system whic h generated this result tra nsmitted reference range : <=0.5. The reference r kat was not used to int erpret this result as normal/abnormal . [facility] HeightsXdgnpqcQRIUZAZSVS4505-73-45 16:57:00 Test Item Value Reference Range Interpretation Comments Microcyte (test code = 1+ *ABN*(08/26/15 Microcyte) 10:57 AM) [facility] HeightsYnyefwdGLCXJHHHUB0458-48-26 16:57:00 Test Item Value Reference Range Interpretation Comments Basophils # (test code 0.1 See_Comment [Aut omated message] The = Basophils #) system which generated this result tra nsmitted reference range : <=0.2. The reference r kat was not used to int erpret this result as normal/abnormal . [place] 309205-12-28 16:57:00 Test Item Value Reference Range Interpretation Comments Monocytes (test code = Monocytes) 8.6 2.0-12.0 [facility] HeightsButjyvbIWHYEHTMWY1135-18-57 16:57:00 Test Item Value Reference Range Interpretation Comments Lymphocytes (test code = Lymphocytes) 40.6 20.0-40.0 [facility] HeightsAniyvvvUFZGWIYXVV0698-28-46 16:57:00 Test Item Value Reference Range Interpretation Comments Eosinophils (test code = 5.0 See_Comment [A utomated message] The Eosinophils) system which ge nerated this result tra nsmitted reference range : <=4.0. The reference r kat was not used to int erpret this result as normal/abnormal . [facility] HeightsXnzcbkaRQFWMGDUGK6257-86-35 16:57:00 Test Item Value Reference Range Interpretation Comments MCH (test code = MCH) 23.9 pg 27.0-31.0 [facility] HeightsHsdkbmtGCHOTHISRV2580-84-86 16:57:00 Test Item Value Reference Range Interpretation Comments Segs (test code = Segs) 44.8 45.0-75.0 [facility] HeightsGlmdzycCJKPKXVWLK8965-38-40 16:57:00 Test Item Value Reference Range Interpretation Comments Basophils (test code = 1.0 See_Comment [Aut omated message] The Basophils) system which ge nerated this result tra nsmitted reference range : <=1.0. The reference r kat was not used to int erpret this result as normal/abnormal . [facility] HeightsClpzndeOUBXIZQASK8044-36-94 16:57:00 Test Item Value Reference Range Interpretation Comments Segs-Bands # (test code = Segs-Bands #) 3.3 1.5-8.1 [facility] HeightsKyzaytqYAOGDEGTDY6245-19-01 16:57:00 Test Item Value Reference Range Interpretation Comments Monocytes # (test code 0.6 See_Comment [Aut omated message] The = Monocytes #) system which generated this result tra nsmitted reference range : <=0.8. The reference r kat was not used to int erpret this result as normal/abnormal . [facility] HeightsOsklqjpAFYDGULEIJ9376-48-93 16:57:00 Test Item Value Reference Range Interpretation Comments Lymphocytes # (test code = Lymphocytes 3.0 1.0-5.5 #) [facility] HeightsYcxmuggAPTSTVAYPS5450-66-08 16:57:00 Test Item Value Reference Range Interpretation Comments PT (test code = PT) 14.0 s 12.0-14.7 [facility] HeightsKzumjznHHNSRMUGOW2010-26-61 16:57:00 Test Item Value Reference Range Interpretation Comments INR (test code = INR) 1.05 0.85-1.17 [facility] HeightsSjucptnFZFHRQPWIO4148-32-84 16:57:00 Test Item Value Reference Range Interpretation Comments PTT (test code = PTT) 30.3 s 22.9-35.8 [facility] HeightsShatykqQITHIYHFQB3135-72-39 16:57:00 Test Item Value Reference Range Interpretation Comments MPV (test code = MPV) 8.9 7.4-10.4 [facility] HeightsXluccbkGZHQWEBEKF2421-45-61 16:57:00 Test Item Value Reference Range Interpretation Comments RDW (test code = RDW) 15.8 11.5-14.5 [facility] HeightsMyvssfsQXVDZFKWUS6042-75-60 16:57:00 Test Item Value Reference Range Interpretation Comments MCHC (test code = MCHC) 30.7 32.0-36.0 [facility] HeightsYedzhwyATEOIULIKI4940-95-67 16:57:00 Test Item Value Reference Range Interpretation Comments Platelet (test code = Platelet) 271 133-450 [facility] HeightsUvcbwgkQVZUTQFZSK6354-76-87 16:57:00 Test Item Value Reference Range Interpretation Comments WBC (test code = WBC) 7.3 3.7-10.4 [facility] HeightsOheritaOIJVIJPQJC9523-30-28 16:57:00 Test Item Value Reference Range Interpretation Comments RBC (test code = RBC) 5.14 4.20-5.40 [facility] HeightsYfyjhoaKYBTNYLUJQ9855-75-23 16:57:00 Test Item Value Reference Range Interpretation Comments MCV (test code = MCV) 77.9 80.0-98.0 [facility] HeightsRqeebvvHACARDDEYJ5850-60-35 16:57:00 Test Item Value Reference Range Interpretation Comments MCH (test code = MCH) 23.9 pg 27.0-31.0 [facility] HeightsScvzscbFHRURHDFKQ0099-67-58 16:57:00 Test Item Value Reference Range Interpretation Comments MCHC (test code = MCHC) 30.7 32.0-36.0 [facility] HeightsLkpeapqWYAVQSPNAY8313-78-90 16:57:00 Test Item Value Reference Range Interpretation Comments Hct (test code = Hct) 40.1 36.0-48.0 [facility] HeightsGnhuiceWGYMVCZNIH4537-30-27 16:57:00 Test Item Value Reference Range Interpretation Comments Hgb (test code = Hgb) 12.3 12.0-16.0 [place] 309205-12-28 16:57:00 Test Item Value Reference Range Interpretation Comments Hct (test code = Hct) 40.1 36.0-48.0 [place] 309205-12-28 16:57:00 Test Item Value Reference Range Interpretation Comments Hgb (test code = Hgb) 12.3 12.0-16.0 [facility]2015-12-28 16:57:00 Test Item Value Reference Range Interpretation Comments eGFR (test code = eGFR) 86 [facility]2015-12-28 16:57:00 Test Item Value Reference Range Interpretation Comments Potassium Lvl (test code = Potassium 3.6 3.5-5.1 Lvl) [facility]2015-12-28 16:57:00 Test Item Value Reference Range Interpretation Comments CO2 (test code = CO2) 27 24-32 [facility]2015-12-28 16:57:00 Test Item Value Reference Range Interpretation Comments Chloride Lvl (test code = Chloride Lvl) 103 95-109 [facility]2015-12-28 16:57:00 Test Item Value Reference Range Interpretation Comments Calcium Lvl (test code = Calcium Lvl) 9.4 8.5-10.5 [facility]2015-12-28 16:57:00 Test Item Value Reference Range Interpretation Comments AST (test code = AST) 16 See_Comment [Auto mated message] The system which ge nerated this result transmit arvind reference range : <=37. The reference range was not used to interpr et this result as mario l/abnormal. [facility]2015-12-28 16:57:00 Test Item Value Reference Range Interpretation Comments ALT (test code = ALT) 43 See_Comment [Auto mated message] The system which ge nerated this result transmit arvind reference range : <=65. The reference range was not used to interpr et this result as mario l/abnormal. [place] 372445-12-28 16:57:00 Test Item Value Reference Range Interpretation Comments Alk Phos (test code = Alk Phos) 97 39-136 [facility]2015-12-28 16:57:00 Test Item Value Reference Range Interpretation Comments Albumin Lvl (test code = Albumin Lvl) 3.6 3.5-5.0 [facility]2015-12-28 16:57:00 Test Item Value Reference Range Interpretation Comments Total Protein (test code = Total 7.3 6.4-8.4 Protein) [facility]2015-12-28 16:57:00 Test Item Value Reference Range Interpretation Comments Bili Total (test code = Bili Total) 0.4 0.2-1.3 [facility]2015-12-28 16:57:00 Test Item Value Reference Range Interpretation Comments Glucose Lvl (test code = Glucose Lvl) 95 70-99 [facility]2015-12-28 16:57:00 Test Item Value Reference Range Interpretation Comments Creatinine Lvl (test code = Creatinine 0.93 0.50-1.40 Lvl) [facility]2015-12-28 16:57:00 Test Item Value Reference Range Interpretation Comments BUN (test code = BUN) 9 7-22 [facility]2015-12-28 16:57:00 Test Item Value Reference Range Interpretation Comments Sodium Lvl (test code = Sodium Lvl) 139 135-145 [facility]2015-12-28 16:57:00 Test Item Value Reference Range Interpretation Comments A/G Ratio (test code = A/G Ratio) 1.0 0.7-1.6 [facility]2015-12-28 16:57:00 Test Item Value Reference Range Interpretation Comments Globulin (test code = Globulin) 3.7 2.0-4.0 [facility]2015-12-28 16:57:00 Test Item Value Reference Range Interpretation Comments B/C Ratio (test code = B/C Ratio) 10 6-25 [facility]2015-12-28 16:57:00 Test Item Value Reference Range Interpretation Comments AGAP (test code = AGAP) 12.6 10.0-20.0 [facility]PHG[facility]IAPICETZH5486-[facility] 16:57:00 Test Item Value Reference Range Interpretation Comments S Preg (test code = S Negative *NA*(08/26/15 Preg) 10:57 AM) [facility] HeightsQopfgieZQLEWLXTQJ7620-29-29 16:57:00 Test Item Value Reference Range Interpretation Comments Eosinophils # (test code 0.4 See_Comment [A utomated message] The = Eosinophils #) system whic h generated this result tra nsmitted reference range : <=0.5. The reference r kat was not used to int erpret this result as normal/abnormal . [facility] HeightsKummhplBLRXDCPYAT8900-49-51 16:57:00 Test Item Value Reference Range Interpretation Comments Microcyte (test code = 1+ *ABN*(08/26/15 Microcyte) 10:57 AM) [facility] HeightsYvifzzkCCSTWWRTDE9772-22-32 16:57:00 Test Item Value Reference Range Interpretation Comments Basophils # (test code 0.1 See_Comment [Aut omated message] The = Basophils #) system which generated this result tra nsmitted reference range : <=0.2. The reference r kat was not used to int erpret this result as normal/abnormal . [facility] HeightsMwpriskZPZAERORPA1228-63-82 16:57:00 Test Item Value Reference Range Interpretation Comments Monocytes (test code = Monocytes) 8.6 2.0-12.0 [facility] HeightsGpgffvlWGCCMLKOHY7881-59-16 16:57:00 Test Item Value Reference Range Interpretation Comments Lymphocytes (test code = Lymphocytes) 40.6 20.0-40.0 [facility] HeightsRufjqbpOEBEKMZVUD7308-48-22 16:57:00 Test Item Value Reference Range Interpretation Comments Eosinophils (test code = 5.0 See_Comment [A utomated message] The Eosinophils) system which ge nerated this result tra nsmitted reference range : <=4.0. The reference r kat was not used to int erpret this result as normal/abnormal . [facility] HeightsKtrfblnSNIRIWNXUW8511-42-07 16:57:00 Test Item Value Reference Range Interpretation Comments Segs (test code = Segs) 44.8 45.0-75.0 [facility] HeightsXefarntUFHDBFBFMO6331-09-19 16:57:00 Test Item Value Reference Range Interpretation Comments Basophils (test code = 1.0 See_Comment [Aut omated message] The Basophils) system which ge nerated this result tra nsmitted reference range : <=1.0. The reference r kat was not used to int erpret this result as normal/abnormal . [facility] HeightsAozeoroRHCZDCBYYP7220-50-14 16:57:00 Test Item Value Reference Range Interpretation Comments Segs-Bands # (test code = Segs-Bands #) 3.3 1.5-8.1 [facility] HeightsDozrxduKWJLMOMHXZ0323-57-00 16:57:00 Test Item Value Reference Range Interpretation Comments Monocytes # (test code 0.6 See_Comment [Aut omated message] The = Monocytes #) system which generated this result tra nsmitted reference range : <=0.8. The reference r kat was not used to int erpret this result as normal/abnormal . [facility] HeightsCskstgdPJXQZKXYET7370-70-17 16:57:00 Test Item Value Reference Range Interpretation Comments Lymphocytes # (test code = Lymphocytes 3.0 1.0-5.5 #) [facility] HeightsOtfqgoxRJECKFYSBL5347-56-72 16:57:00 Test Item Value Reference Range Interpretation Comments PT (test code = PT) 14.0 s 12.0-14.7 [facility] HeightsDpwpsxoJNJSYGIOOR6829-68-30 16:57:00 Test Item Value Reference Range Interpretation Comments INR (test code = INR) 1.05 0.85-1.17 [facility] HeightsInkiaahEDYLYOXEDK3340-99-19 16:57:00 Test Item Value Reference Range Interpretation Comments PTT (test code = PTT) 30.3 s 22.9-35.8 [facility] HeightsPdbobtrOLLCKHVCQP7619-03-33 16:57:00 Test Item Value Reference Range Interpretation Comments MPV (test code = MPV) 8.9 7.4-10.4 [facility] HeightsWyblukrZBPJDIRSCN2577-43-46 16:57:00 Test Item Value Reference Range Interpretation Comments RDW (test code = RDW) 15.8 11.5-14.5 [facility] HeightsNqprtwbTMSKBXGGBZ4294-93-54 16:57:00 Test Item Value Reference Range Interpretation Comments Platelet (test code = Platelet) 271 133-450 [facility] HeightsHgqovtgDOPTEAQPZH1243-02-62 16:57:00 Test Item Value Reference Range Interpretation Comments WBC (test code = WBC) 7.3 3.7-10.4 [facility] HeightsEizdxbvMFEDXAXOBN0440-88-06 16:57:00 Test Item Value Reference Range Interpretation Comments RBC (test code = RBC) 5.14 4.20-5.40 [facility] HeightsNoxaismZMGTRIXLAH8583-77-11 16:57:00 Test Item Value Reference Range Interpretation Comments MCV (test code = MCV) 77.9 80.0-98.0 [facility] HeightsBinanznSQYGIRQICC4413-80-24 16:57:00 Test Item Value Reference Range Interpretation Comments MCH (test code = MCH) 23.9 pg 27.0-31.0 [facility] HeightsSsirjmqFYTGOPQOZQ4107-31-57 16:57:00 Test Item Value Reference Range Interpretation Comments MCHC (test code = MCHC) 30.7 32.0-36.0 [facility] HeightsEpglhbmOAXXMGGXIM1369-90-33 16:57:00 Test Item Value Reference Range Interpretation Comments Hct (test code = Hct) 40.1 36.0-48.0 [facility] HeightsIwbqzvaRWXQTGHQNP4626-31-38 16:57:00 Test Item Value Reference Range Interpretation Comments Hgb (test code = Hgb) 12.3 12.0-16.0 [facility]2015-12-28 16:57:00 Test Item Value Reference Range Interpretation Comments eGFR (test code = eGFR) 86 [facility]2015-12-28 16:57:00 Test Item Value Reference Range Interpretation Comments Potassium Lvl (test code = Potassium 3.6 3.5-5.1 Lvl) [facility]2015-12-28 16:57:00 Test Item Value Reference Range Interpretation Comments CO2 (test code = CO2) 27 24-32 [facility]2015-12-28 16:57:00 Test Item Value Reference Range Interpretation Comments Chloride Lvl (test code = Chloride Lvl) 103 95-109 [facility]2015-12-28 16:57:00 Test Item Value Reference Range Interpretation Comments Calcium Lvl (test code = Calcium Lvl) 9.4 8.5-10.5 [facility]2015-12-28 16:57:00 Test Item Value Reference Range Interpretation Comments AST (test code = AST) 16 See_Comment [Auto mated message] The system which ge nerated this result transmit arvind reference range : <=37. The reference range was not used to interpr et this result as mario l/abnormal. [facility]2015-12-28 16:57:00 Test Item Value Reference Range Interpretation Comments ALT (test code = ALT) 43 See_Comment [Auto mated message] The system which ge nerated this result transmit arvind reference range : <=65. The reference range was not used to interpr et this result as mario l/abnormal. [facility]2015-12-28 16:57:00 Test Item Value Reference Range Interpretation Comments Alk Phos (test code = Alk Phos) 97 39-136 [facility]2015-12-28 16:57:00 Test Item Value Reference Range Interpretation Comments Albumin Lvl (test code = Albumin Lvl) 3.6 3.5-5.0 [facility]2015-12-28 16:57:00 Test Item Value Reference Range Interpretation Comments Total Protein (test code = Total 7.3 6.4-8.4 Protein) [facility]2015-12-28 16:57:00 Test Item Value Reference Range Interpretation Comments Bili Total (test code = Bili Total) 0.4 0.2-1.3 [facility]2015-12-28 16:57:00 Test Item Value Reference Range Interpretation Comments Glucose Lvl (test code = Glucose Lvl) 95 70-99 [facility]2015-12-28 16:57:00 Test Item Value Reference Range Interpretation Comments Creatinine Lvl (test code = Creatinine 0.93 0.50-1.40 Lvl) [facility]2015-12-28 16:57:00 Test Item Value Reference Range Interpretation Comments BUN (test code = BUN) 9 7-22 [facility]2015-12-28 16:57:00 Test Item Value Reference Range Interpretation Comments Sodium Lvl (test code = Sodium Lvl) 139 135-145 [facility]2015-12-28 16:57:00 Test Item Value Reference Range Interpretation Comments A/G Ratio (test code = A/G Ratio) 1.0 0.7-1.6 [facility]2015-12-28 16:57:00 Test Item Value Reference Range Interpretation Comments Globulin (test code = Globulin) 3.7 2.0-4.0 [facility]2015-12-28 16:57:00 Test Item Value Reference Range Interpretation Comments B/C Ratio (test code = B/C Ratio) 10 6-25 [id number] 16:57:00 Test Item Value Reference Range Interpretation Comments AGAP (test code = AGAP) 12.6 10.0-20.0 [facility]8963[facility]87 16:57:00 Test Item Value Reference Range Interpretation Comments S Preg (test code = S Negative *NA*(08/26/15 Preg) 10:57 AM) [facility] HeightsJaoxpgdJNERLUXRAG1910-42-25 16:57:00 Test Item Value Reference Range Interpretation Comments Eosinophils # (test code 0.4 See_Comment [A utomated message] The = Eosinophils #) system whic h generated this result tra nsmitted reference range : <=0.5. The reference r kat was not used to int erpret this result as normal/abnormal . [facility] HeightsNymeiltIYVLHJUAXS4486-08-76 16:57:00 Test Item Value Reference Range Interpretation Comments Microcyte (test code = 1+ *ABN*(08/26/15 Microcyte) 10:57 AM) [facility] HeightsLggmtlkUZEQKYGMBG4253-31-80 16:57:00 Test Item Value Reference Range Interpretation Comments Basophils # (test code 0.1 See_Comment [Aut omated message] The = Basophils #) system which generated this result tra nsmitted reference range : <=0.2. The reference r kat was not used to int erpret this result as normal/abnormal . [facility] HeightsYmnfcouDZGKJYKVBY9284-55-86 16:57:00 Test Item Value Reference Range Interpretation Comments Monocytes (test code = Monocytes) 8.6 2.0-12.0 [facility] HeightsJdeiwisPJJGLKIPVR2819-26-41 16:57:00 Test Item Value Reference Range Interpretation Comments Lymphocytes (test code = Lymphocytes) 40.6 20.0-40.0 [facility] HeightsAhywgnlPLCOLMGPSX3983-82-07 16:57:00 Test Item Value Reference Range Interpretation Comments Eosinophils (test code = 5.0 See_Comment [A utomated message] The Eosinophils) system which ge nerated this result tra nsmitted reference range : <=4.0. The reference r kat was not used to int erpret this result as normal/abnormal . [facility] HeightsZhjnrvqIMSRINMPWW6120-93-88 16:57:00 Test Item Value Reference Range Interpretation Comments Segs (test code = Segs) 44.8 45.0-75.0 [facility] HeightsBenivacPUOLTHWUHQ8147-36-81 16:57:00 Test Item Value Reference Range Interpretation Comments Basophils (test code = 1.0 See_Comment [Aut omated message] The Basophils) system which ge nerated this result tra nsmitted reference range : <=1.0. The reference r kat was not used to int erpret this result as normal/abnormal . [facility] HeightsOfgchkmFHHEMDUMPO2598-36-78 16:57:00 Test Item Value Reference Range Interpretation Comments Segs-Bands # (test code = Segs-Bands #) 3.3 1.5-8.1 [facility] HeightsLkysaleUQTSTFFGMX4144-42-04 16:57:00 Test Item Value Reference Range Interpretation Comments Monocytes # (test code 0.6 See_Comment [Aut omated message] The = Monocytes #) system which generated this result tra nsmitted reference range : <=0.8. The reference r kat was not used to int erpret this result as normal/abnormal . [facility] HeightsUoyfhyxSYZZSFQZDB5990-07-12 16:57:00 Test Item Value Reference Range Interpretation Comments Lymphocytes # (test code = Lymphocytes 3.0 1.0-5.5 #) [facility] HeightsUgidaaaCSUVPEWKXW8347-06-08 16:57:00 Test Item Value Reference Range Interpretation Comments PT (test code = PT) 14.0 s 12.0-14.7 [facility] HeightsShevzzrNLISNWOFFB8985-34-89 16:57:00 Test Item Value Reference Range Interpretation Comments INR (test code = INR) 1.05 0.85-1.17 [facility] HeightsPtvgdkwCAFSAAYTKE0372-86-31 16:57:00 Test Item Value Reference Range Interpretation Comments PTT (test code = PTT) 30.3 s 22.9-35.8 [facility] HeightsUlcuhsdDRGJEBGUAM7068-66-73 16:57:00 Test Item Value Reference Range Interpretation Comments MPV (test code = MPV) 8.9 7.4-10.4 [facility] HeightsMvslzwdLZJWOKZDLC5527-51-57 16:57:00 Test Item Value Reference Range Interpretation Comments RDW (test code = RDW) 15.8 11.5-14.5 [facility] HeightsBvzqgzzTCWPCKOCJL6809-91-62 16:57:00 Test Item Value Reference Range Interpretation Comments Platelet (test code = Platelet) 271 133-450 [facility] HeightsFcaunnyDVYCYJIRLO0726-72-28 16:57:00 Test Item Value Reference Range Interpretation Comments WBC (test code = WBC) 7.3 3.7-10.4 [facility] HeightsAdfpyolVLQSNIUJWQ9822-58-33 16:57:00 Test Item Value Reference Range Interpretation Comments RBC (test code = RBC) 5.14 4.20-5.40 [facility] HeightsGnlaecdPYPXJEWEVZ0426-35-09 16:57:00 Test Item Value Reference Range Interpretation Comments MCV (test code = MCV) 77.9 80.0-98.0 [facility] HeightsIbjwafgPXZBFPDOVF6642-75-84 16:57:00 Test Item Value Reference Range Interpretation Comments MCH (test code = MCH) 23.9 pg 27.0-31.0 [facility] HeightsTqhjpazJEZWZGLMDK1392-33-41 16:57:00 Test Item Value Reference Range Interpretation Comments MCHC (test code = MCHC) 30.7 32.0-36.0 [facility] HeightsCqqreybTNZRONRRSM6168-60-60 16:57:00 Test Item Value Reference Range Interpretation Comments Hct (test code = Hct) 40.1 36.0-48.0 [facility] HeightsDjflhbrCNLRGPUYJU7020-02-45 16:57:00 Test Item Value Reference Range Interpretation Comments Hgb (test code = Hgb) 12.3 12.0-16.0 [facility]2015-12-28 16:57:00 Test Item Value Reference Range Interpretation Comments eGFR (test code = eGFR) 86 [facility]2015-12-28 16:57:00 Test Item Value Reference Range Interpretation Comments Potassium Lvl (test code = Potassium 3.6 3.5-5.1 Lvl) [facility]2015-12-28 16:57:00 Test Item Value Reference Range Interpretation Comments CO2 (test code = CO2) 27 24-32 [facility]2015-12-28 16:57:00 Test Item Value Reference Range Interpretation Comments Chloride Lvl (test code = Chloride Lvl) 103 95-109 [facility]2015-12-28 16:57:00 Test Item Value Reference Range Interpretation Comments Calcium Lvl (test code = Calcium Lvl) 9.4 8.5-10.5 [facility]2015-12-28 16:57:00 Test Item Value Reference Range Interpretation Comments AST (test code = AST) 16 See_Comment [Auto mated message] The system which ge nerated this result transmit arvind reference range : <=37. The reference range was not used to interpr et this result as mario l/abnormal. [facility]2015-12-28 16:57:00 Test Item Value Reference Range Interpretation Comments ALT (test code = ALT) 43 See_Comment [Auto mated message] The system which ge nerated this result transmit arvind reference range : <=65. The reference range was not used to interpr et this result as mario l/abnormal. [facility]2015-12-28 16:57:00 Test Item Value Reference Range Interpretation Comments Alk Phos (test code = Alk Phos) 97 39-136 [facility]2015-12-28 16:57:00 Test Item Value Reference Range Interpretation Comments Albumin Lvl (test code = Albumin Lvl) 3.6 3.5-5.0 [facility]2015-12-28 16:57:00 Test Item Value Reference Range Interpretation Comments Total Protein (test code = Total 7.3 6.4-8.4 Protein) [facility]2015-12-28 16:57:00 Test Item Value Reference Range Interpretation Comments Bili Total (test code = Bili Total) 0.4 0.2-1.3 [facility]2015-12-28 16:57:00 Test Item Value Reference Range Interpretation Comments Glucose Lvl (test code = Glucose Lvl) 95 70-99 [facility]2015-12-28 16:57:00 Test Item Value Reference Range Interpretation Comments Creatinine Lvl (test code = Creatinine 0.93 0.50-1.40 Lvl) [facility]2015-12-28 16:57:00 Test Item Value Reference Range Interpretation Comments BUN (test code = BUN) 9 7-22 [facility]2015-12-28 16:57:00 Test Item Value Reference Range Interpretation Comments Sodium Lvl (test code = Sodium Lvl) 139 135-145 [facility]2015-12-28 16:57:00 Test Item Value Reference Range Interpretation Comments A/G Ratio (test code = A/G Ratio) 1.0 0.7-1.6 [facility]2015-12-28 16:57:00 Test Item Value Reference Range Interpretation Comments Globulin (test code = Globulin) 3.7 2.0-4.0 [facility]2015-12-28 16:57:00 Test Item Value Reference Range Interpretation Comments B/C Ratio (test code = B/C Ratio) 10 6-25 [facility]2015-12-28 16:57:00 Test Item Value Reference Range Interpretation Comments AGAP (test code = AGAP) 12.6 10.0-20.0 [place] [id number] 16:57:00 Test Item Value Reference Range Interpretation Comments S Preg (test code = S Negative *NA*(08/26/15 Preg) 10:57 AM) [facility] HeightsBkvpvnrSFJHJZQOBO9665-25-78 16:57:00 Test Item Value Reference Range Interpretation Comments Eosinophils # (test code 0.4 See_Comment [A utomated message] The = Eosinophils #) system [facility] generated this result tra nsmitted reference range : <=0.5. The reference r kat was not used to int erpret this result as normal/abnormal . [facility] HeightsCxujcleRLLYISRZOD8774-74-78 16:57:00 Test Item Value Reference Range Interpretation Comments Microcyte (test code = 1+ *ABN*(08/26/15 Microcyte) 10:57 AM) [facility] HeightsSevlhbqKSBPGATKQC5956-66-18 16:57:00 Test Item Value Reference Range Interpretation Comments Basophils # (test code 0.1 See_Comment [Aut omated message] The = Basophils #) system which generated this result tra nsmitted reference range : <=0.2. The reference r kat was not used to int erpret this result as normal/abnormal . [facility] HeightsNserzxtIGEDGOTAWR3500-39-78 16:57:00 Test Item Value Reference Range Interpretation Comments Monocytes (test code = Monocytes) 8.6 2.0-12.0 [facility] HeightsCvywjcmQXGYEDICJW1424-65-49 16:57:00 Test Item Value Reference Range Interpretation Comments Lymphocytes (test code = Lymphocytes) 40.6 20.0-40.0 [facility] HeightsOcauyktXBAREZOMWC1900-99-31 16:57:00 Test Item Value Reference Range Interpretation Comments Eosinophils (test code = 5.0 See_Comment [A utomated message] The Eosinophils) system which ge nerated this result tra nsmitted reference range : <=4.0. The reference r kat was not used to int erpret this result as normal/abnormal . [facility] HeightsVsnzksfTBHZCQIUEV0643-26-18 16:57:00 Test Item Value Reference Range Interpretation Comments Segs (test code = Segs) 44.8 45.0-75.0 [facility] HeightsWuhncahNOGEIMGRBJ6549-14-21 16:57:00 Test Item Value Reference Range Interpretation Comments Basophils (test code = 1.0 See_Comment [Aut omated message] The Basophils) system which ge nerated this result tra nsmitted reference range : <=1.0. The reference r kat was not used to int erpret this result as normal/abnormal . [facility] HeightsRigkbkyHIORBMNLHW9926-50-56 16:57:00 Test Item Value Reference Range Interpretation Comments Segs-Bands # (test code = Segs-Bands #) 3.3 1.5-8.1 [facility] HeightsUfnerzwJNTBVTAUNB3429-14-90 16:57:00 Test Item Value Reference Range Interpretation Comments Monocytes # (test code 0.6 See_Comment [Aut omated message] The = Monocytes #) system which generated this result tra nsmitted reference range : <=0.8. The reference r kat was not used to int erpret this result as normal/abnormal . [facility] HeightsHtmwjqyQGGYCRACPH4770-50-89 16:57:00 Test Item Value Reference Range Interpretation Comments Lymphocytes # (test code = Lymphocytes 3.0 1.0-5.5 #) [facility] HeightsKzwfbfnXWRPKCIFZP7131-12-65 16:57:00 Test Item Value Reference Range Interpretation Comments PT (test code = PT) 14.0 s 12.0-14.7 [facility] HeightsPvkngchNKTUYJYDDI1567-08-33 16:57:00 Test Item Value Reference Range Interpretation Comments INR (test code = INR) 1.05 0.85-1.17 [facility] HeightsRhhumbgIIHUUDWXFF9501-28-80 16:57:00 Test Item Value Reference Range Interpretation Comments PTT (test code = PTT) 30.3 s 22.9-35.8 [facility] HeightsHcqcghyOKDZANCLZE0883-28-05 16:57:00 Test Item Value Reference Range Interpretation Comments MPV (test code = MPV) 8.9 7.4-10.4 [facility] HeightsIpioyclMBNEDHNLSH7419-61-24 16:57:00 Test Item Value Reference Range Interpretation Comments RDW (test code = RDW) 15.8 11.5-14.5 [facility] HeightsTocwwufMRGUGFFUSI0165-99-50 16:57:00 Test Item Value Reference Range Interpretation Comments Platelet (test code = Platelet) 271 133-450 [facility] HeightsLgpzndlLNYZNQPRSF5536-61-86 16:57:00 Test Item Value Reference Range Interpretation Comments WBC (test code = WBC) 7.3 3.7-10.4 [facility] HeightsSulfqnkBKNSQOXUUH2127-33-67 16:57:00 Test Item Value Reference Range Interpretation Comments RBC (test code = RBC) 5.14 4.20-5.40 [facility] HeightsJmlxskfTZCWDCOSUL9939-20-94 16:57:00 Test Item Value Reference Range Interpretation Comments MCV (test code = MCV) 77.9 80.0-98.0 [facility] HeightsQcdxznlYTJMKVVGAN2954-69-81 16:57:00 Test Item Value Reference Range Interpretation Comments MCH (test code = MCH) 23.9 pg 27.0-31.0 [facility] HeightsSxocfvyLOJRQVVHVI7724-86-61 16:57:00 Test Item Value Reference Range Interpretation Comments MCHC (test code = MCHC) 30.7 32.0-36.0 [facility] HeightsPnnyptaKLIMODODXA0317-07-63 16:57:00 Test Item Value Reference Range Interpretation Comments Hct (test code = Hct) 40.1 36.0-48.0 [facility] HeightsAyceyzoRHULHQICZP4800-74-78 16:57:00 Test Item Value Reference Range Interpretation Comments Hgb (test code = Hgb) 12.3 12.0-16.0 [facility]2015-12-28 16:57:00 Test Item Value Reference Range Interpretation Comments eGFR (test code = eGFR) 86 [facility]2015-12-28 16:57:00 Test Item Value Reference Range Interpretation Comments Potassium Lvl (test code = Potassium 3.6 3.5-5.1 Lvl) [facility]2015-12-28 16:57:00 Test Item Value Reference Range Interpretation Comments CO2 (test code = CO2) 27 24-32 [facility]2015-12-28 16:57:00 Test Item Value Reference Range Interpretation Comments Chloride Lvl (test code = Chloride Lvl) 103 95-109 [facility]2015-12-28 16:57:00 Test Item Value Reference Range Interpretation Comments Calcium Lvl (test code = Calcium Lvl) 9.4 8.5-10.5 [facility]2015-12-28 16:57:00 Test Item Value Reference Range Interpretation Comments AST (test code = AST) 16 See_Comment [Auto mated message] The system which ge nerated this result transmit arvind reference range : <=37. The reference range was not used to interpr et this result as mario l/abnormal. [facility]2015-12-28 16:57:00 Test Item Value Reference Range Interpretation Comments ALT (test code = ALT) 43 See_Comment [Auto mated message] The system which ge nerated this result transmit arvind reference range : <=65. The reference range was not used to interpr et this result as mario l/abnormal. [facility]2015-12-28 16:57:00 Test Item Value Reference Range Interpretation Comments Alk Phos (test code = Alk Phos) 97 39-136 [facility]2015-12-28 16:57:00 Test Item Value Reference Range Interpretation Comments Albumin Lvl (test code = Albumin Lvl) 3.6 3.5-5.0 [facility]2015-12-28 16:57:00 Test Item Value Reference Range Interpretation Comments Total Protein (test code = Total 7.3 6.4-8.4 Protein) [facility]2015-12-28 16:57:00 Test Item Value Reference Range Interpretation Comments Bili Total (test code = Bili Total) 0.4 0.2-1.3 [place] 372445-12-28 16:57:00 Test Item Value Reference Range Interpretation Comments Glucose Lvl (test code = Glucose Lvl) 95 70-99 [facility]2015-12-28 16:57:00 Test Item Value Reference Range Interpretation Comments Creatinine Lvl (test code = Creatinine 0.93 0.50-1.40 Lvl) [facility]2015-12-28 16:57:00 Test Item Value Reference Range Interpretation Comments BUN (test code = BUN) 9 7-22 [facility]2015-12-28 16:57:00 Test Item Value Reference Range Interpretation Comments Sodium Lvl (test code = Sodium Lvl) 139 135-145 [facility]2015-12-28 16:57:00 Test Item Value Reference Range Interpretation Comments A/G Ratio (test code = A/G Ratio) 1.0 0.7-1.6 [facility]2015-12-28 16:57:00 Test Item Value Reference Range Interpretation Comments Globulin (test code = Globulin) 3.7 2.0-4.0 [facility]2015-12-28 16:57:00 Test Item Value Reference Range Interpretation Comments B/C Ratio (test code = B/C Ratio) 10 6-25 [facility]2015-12-28 16:57:00 Test Item Value Reference Range Interpretation Comments AGAP (test code = AGAP) 12.6 10.0-20.0 [place] [id number] 16:57:00 Test Item Value Reference Range Interpretation Comments S Preg (test code = S Negative *NA*(08/26/15 Preg) 10:57 AM) [facility] HeightsLoojmhfUOALHKLGWU8213-84-93 16:57:00 Test Item Value Reference Range Interpretation Comments Eosinophils # (test code 0.4 See_Comment [A utomated message] The = Eosinophils #) system whic h generated this result tra nsmitted reference range : <=0.5. The reference r kat was not used to int erpret this result as normal/abnormal . [facility] HeightsDrtydvpOFVDJJLLDY0695-27-43 16:57:00 Test Item Value Reference Range Interpretation Comments Microcyte (test code = 1+ *ABN*(08/26/15 Microcyte) 10:57 AM) [facility] HeightsAoyysznNZXVMVHIHO8750-42-05 16:57:00 Test Item Value Reference Range Interpretation Comments Basophils # (test code 0.1 See_Comment [Aut omated message] The = Basophils #) system which generated this result tra nsmitted reference range : <=0.2. The reference r kat was not used to int erpret this result as normal/abnormal . [facility] HeightsWszoxfcFRWGIBWRJO0687-62-73 16:57:00 Test Item Value Reference Range Interpretation Comments Monocytes (test code = Monocytes) 8.6 2.0-12.0 [facility] HeightsZlxjkerPJUQHRDYUZ1846-21-46 16:57:00 Test Item Value Reference Range Interpretation Comments Lymphocytes (test code = Lymphocytes) 40.6 20.0-40.0 [facility] HeightsZuhjtptSHUDNUCSQT0993-76-66 16:57:00 Test Item Value Reference Range Interpretation Comments Eosinophils (test code = 5.0 See_Comment [A utomated message] The Eosinophils) system which ge nerated this result tra nsmitted reference range : <=4.0. The reference r kat was not used to int erpret this result as normal/abnormal . [facility] HeightsXgyzqrgXKKRMIKDGB5098-05-38 16:57:00 Test Item Value Reference Range Interpretation Comments Segs (test code = Segs) 44.8 45.0-75.0 [facility] HeightsOloenfoAVVPMPHBSM4847-30-98 16:57:00 Test Item Value Reference Range Interpretation Comments Basophils (test code = 1.0 See_Comment [Aut omated message] The Basophils) system which ge nerated this result tra nsmitted reference range : <=1.0. The reference r kat was not used to int erpret this result as normal/abnormal . [facility] HeightsNoakkdgSLBBVVWCHW7857-63-12 16:57:00 Test Item Value Reference Range Interpretation Comments Segs-Bands # (test code = Segs-Bands #) 3.3 1.5-8.1 [facility] HeightsBlwygcnSSHOTEGOAS8866-35-21 16:57:00 Test Item Value Reference Range Interpretation Comments Monocytes # (test code 0.6 See_Comment [Aut omated message] The = Monocytes #) system which generated this result tra nsmitted reference range : <=0.8. The reference r kat was not used to int erpret this result as normal/abnormal . [facility] HeightsFezdqibYMCTDVFYYL9228-32-32 16:57:00 Test Item Value Reference Range Interpretation Comments Lymphocytes # (test code = Lymphocytes 3.0 1.0-5.5 #) [facility] HeightsFerwekrEUERZKXXRF1103-13-84 16:57:00 Test Item Value Reference Range Interpretation Comments PT (test code = PT) 14.0 s 12.0-14.7 [facility] HeightsYgjleouYOYJAOTNDB7851-71-00 16:57:00 Test Item Value Reference Range Interpretation Comments INR (test code = INR) 1.05 0.85-1.17 [facility] HeightsNskujheQHTXGOXMZG0334-90-33 16:57:00 Test Item Value Reference Range Interpretation Comments PTT (test code = PTT) 30.3 s 22.9-35.8 [facility] HeightsWmqzrlfHOQSFMUKST0052-28-22 16:57:00 Test Item Value Reference Range Interpretation Comments MPV (test code = MPV) 8.9 7.4-10.4 [facility] HeightsHjmwdzzBGXQTDYSQM4656-58-74 16:57:00 Test Item Value Reference Range Interpretation Comments RDW (test code = RDW) 15.8 11.5-14.5 [facility] HeightsBewmhfhMOSVXYCYPV9271-02-82 16:57:00 Test Item Value Reference Range Interpretation Comments Platelet (test code = Platelet) 271 133-450 [facility] HeightsMoreinvLKBYUGSVXV0539-25-67 16:57:00 Test Item Value Reference Range Interpretation Comments WBC (test code = WBC) 7.3 3.7-10.4 [facility] HeightsQkdendlELBIPTCZQA8339-96-58 16:57:00 Test Item Value Reference Range Interpretation Comments RBC (test code = RBC) 5.14 4.20-5.40 [facility] HeightsRhutaycDGMKXZUHAW9490-02-14 16:57:00 Test Item Value Reference Range Interpretation Comments MCV (test code = MCV) 77.9 80.0-98.0 [facility] HeightsKkfunukLRPMTCGEDT7798-81-79 16:57:00 Test Item Value Reference Range Interpretation Comments MCH (test code = MCH) 23.9 pg 27.0-31.0 [facility] HeightsPrxwpglYCVPPQUKUA7228-12-54 16:57:00 Test Item Value Reference Range Interpretation Comments MCHC (test code = MCHC) 30.7 32.0-36.0 [facility] HeightsFadidafGQVDMPKLLN0416-33-82 16:57:00 Test Item Value Reference Range Interpretation Comments Hct (test code = Hct) 40.1 36.0-48.0 [facility] HeightsBqdgemiESPCDBBLAU2912-78-84 16:57:00 Test Item Value Reference Range Interpretation Comments Hgb (test code = Hgb) 12.3 12.0-16.0 [facility]2015-12-28 16:57:00 Test Item Value Reference Range Interpretation Comments eGFR (test code = eGFR) 86 [facility] [id number] 16:57:00 Test Item Value Reference Range Interpretation Comments Potassium Lvl (test code = Potassium 3.6 3.5-5.1 Lvl) [facility]2015-12-28 16:57:00 Test Item Value Reference Range Interpretation Comments CO2 (test code = CO2) 27 24-32 [facility]2015-12-28 16:57:00 Test Item Value Reference Range Interpretation Comments Chloride Lvl (test code = Chloride Lvl) 103 95-109 [facility]2015-12-28 16:57:00 Test Item Value Reference Range Interpretation Comments Calcium Lvl (test code = Calcium Lvl) 9.4 8.5-10.5 [facility]2015-12-28 16:57:00 Test Item Value Reference Range Interpretation Comments AST (test code = AST) 16 See_Comment [Auto mated message] The system which ge nerated this result transmit arvind reference range : <=37. The reference range was not used to interpr et this result as mario l/abnormal. [facility]2015-12-28 16:57:00 Test Item Value Reference Range Interpretation Comments ALT (test code = ALT) 43 See_Comment [Auto mated message] The system which ge nerated this result transmit arvind reference range : <=65. The reference range was not used to interpr et this result as mario l/abnormal. [facility]2015-12-28 16:57:00 Test Item Value Reference Range Interpretation Comments Alk Phos (test code = Alk Phos) 97 39-136 [facility]2015-12-28 16:57:00 Test Item Value Reference Range Interpretation Comments Albumin Lvl (test code = Albumin Lvl) 3.6 3.5-5.0 [facility]2015-12-28 16:57:00 Test Item Value Reference Range Interpretation Comments Total Protein (test code = Total 7.3 6.4-8.4 Protein) [facility]2015-12-28 16:57:00 Test Item Value Reference Range Interpretation Comments Bili Total (test code = Bili Total) 0.4 0.2-1.3 [facility]2015-12-28 16:57:00 Test Item Value Reference Range Interpretation Comments Glucose Lvl (test code = Glucose Lvl) 95 70-99 [facility]2015-12-28 16:57:00 Test Item Value Reference Range Interpretation Comments Creatinine Lvl (test code = Creatinine 0.93 0.50-1.40 Lvl) [facility]2015-12-28 16:57:00 Test Item Value Reference Range Interpretation Comments BUN (test code = BUN) 9 7-22 [facility]2015-12-28 16:57:00 Test Item Value Reference Range Interpretation Comments Sodium Lvl (test code = Sodium Lvl) 139 135-145 [facility]2015-12-28 16:57:00 Test Item Value Reference Range Interpretation Comments A/G Ratio (test code = A/G Ratio) 1.0 0.7-1.6 [facility]2015-12-28 16:57:00 Test Item Value Reference Range Interpretation Comments Globulin (test code = Globulin) 3.7 2.0-4.0 [facility]2015-12-28 16:57:00 Test Item Value Reference Range Interpretation Comments B/C Ratio (test code = B/C Ratio) 10 - [facility]2015-12-28 16:57:00 Test Item Value Reference Range Interpretation Comments AGAP (test code = AGAP) 12.6 10.0-20.0 [place] [id number] 16:57:00 Test Item Value Reference Range Interpretation Comments S Preg (test code = S Negative *NA*(08/26/15 Preg) 10:57 AM) [facility] HeightsFeswulfHDVRDNCFMO9829-66-68 16:57:00 Test Item Value Reference Range Interpretation Comments Eosinophils # (test code 0.4 See_Comment [A utomated message] The = Eosinophils #) system whic h generated this result tra nsmitted reference range : <=0.5. The reference r kat was not used to int erpret this result as normal/abnormal . [facility] HeightsQhxrbkmQRQKRVQPGB3852-86-96 16:57:00 Test Item Value Reference Range Interpretation Comments Microcyte (test code = 1+ *ABN*(08/26/15 Microcyte) 10:57 AM) [facility] HeightsMuxdqwrPQKLFICXOL0372-74-41 16:57:00 Test Item Value Reference Range Interpretation Comments Basophils # (test code 0.1 See_Comment [Aut omated message] The = Basophils #) system which generated this result tra nsmitted reference range : <=0.2. The reference r kat was not used to int erpret this result as normal/abnormal . [facility] HeightsTlhxbqwSLHOSIOLCY4673-05-76 16:57:00 Test Item Value Reference Range Interpretation Comments Monocytes (test code = Monocytes) 8.6 2.0-12.0 [facility] HeightsZjgyrbqMDGCRHFVYT9642-17-80 16:57:00 Test Item Value Reference Range Interpretation Comments Lymphocytes (test code = Lymphocytes) 40.6 20.0-40.0 [facility] HeightsMfkeamiSHITARCWGA8002-48-33 16:57:00 Test Item Value Reference Range Interpretation Comments Eosinophils (test code = 5.0 See_Comment [A utomated message] The Eosinophils) system which ge nerated this result tra nsmitted reference range : <=4.0. The reference r kat was not used to int erpret this result as normal/abnormal . [facility] HeightsLdrmgghFWOODTIARU3416-40-94 16:57:00 Test Item Value Reference Range Interpretation Comments Segs (test code = Segs) 44.8 45.0-75.0 [facility] HeightsEmmsrkgAFKWXFUYUX8857-61-63 16:57:00 Test Item Value Reference Range Interpretation Comments Basophils (test code = 1.0 See_Comment [Aut omated message] The Basophils) system which ge nerated this result tra nsmitted reference range : <=1.0. The reference r kat was not used to int erpret this result as normal/abnormal . [facility] HeightsTfmunjuNJWQYKCVOI6200-14-38 16:57:00 Test Item Value Reference Range Interpretation Comments Segs-Bands # (test code = Segs-Bands #) 3.3 1.5-8.1 [facility] HeightsNsowgrsSVBOXFBEAY8614-18-95 16:57:00 Test Item Value Reference Range Interpretation Comments Monocytes # (test code 0.6 See_Comment [Aut omated message] The = Monocytes #) system which generated this result tra nsmitted reference range : <=0.8. The reference r kat was not used to int erpret this result as normal/abnormal . [facility] HeightsYhrowenKUGJDWJCRM6740-23-27 16:57:00 Test Item Value Reference Range Interpretation Comments Lymphocytes # (test code = Lymphocytes 3.0 1.0-5.5 #) [facility] HeightsZpomesoGNGIGHPXUH7279-72-21 16:57:00 Test Item Value Reference Range Interpretation Comments PT (test code = PT) 14.0 s 12.0-14.7 [facility] HeightsRldpuauLRJDLYEGFA7134-45-94 16:57:00 Test Item Value Reference Range Interpretation Comments INR (test code = INR) 1.05 0.85-1.17 [facility] HeightsUbpnjeoLFIUXDFSZO9817-93-60 16:57:00 Test Item Value Reference Range Interpretation Comments PTT (test code = PTT) 30.3 s 22.9-35.8 [facility] HeightsSepykiwSNNSWMNNVN6010-86-84 16:57:00 Test Item Value Reference Range Interpretation Comments MPV (test code = MPV) 8.9 7.4-10.4 [facility] HeightsAyklyapKYURGGEIYR2271-90-06 16:57:00 Test Item Value Reference Range Interpretation Comments RDW (test code = RDW) 15.8 11.5-14.5 [facility] HeightsVlvmcveQAIVBZBLZF1262-05-65 16:57:00 Test Item Value Reference Range Interpretation Comments Platelet (test code = Platelet) 271 133-450 [facility] HeightsYwjvsyzNZESXFZLHR2919-64-30 16:57:00 Test Item Value Reference Range Interpretation Comments WBC (test code = WBC) 7.3 3.7-10.4 [facility] HeightsZlulryjHZWSMDQHMA4455-91-31 16:57:00 Test Item Value Reference Range Interpretation Comments RBC (test code = RBC) 5.14 4.20-5.40 [facility] HeightsPcaaggaHHOXGRJKEE4116-24-46 16:57:00 Test Item Value Reference Range Interpretation Comments MCV (test code = MCV) 77.9 80.0-98.0 [facility] HeightsNwqbazvDZMJHHCVSP7512-41-46 16:57:00 Test Item Value Reference Range Interpretation Comments MCH (test code = MCH) 23.9 pg 27.0-31.0 [facility] HeightsGumytvvROMRYRLWIM4496-28-33 16:57:00 Test Item Value Reference Range Interpretation Comments MCHC (test code = MCHC) 30.7 32.0-36.0 [facility] HeightsKicstbkMEAYNEQWKY7540-42-46 16:57:00 Test Item Value Reference Range Interpretation Comments Hct (test code = Hct) 40.1 36.0-48.0 [facility] HeightsMsmgfwgWWOWPWCVGS0731-24-42 16:57:00 Test Item Value Reference Range Interpretation Comments Hgb (test code = Hgb) 12.3 12.0-16.0 [facility]2015-12-28 16:57:00 Test Item Value Reference Range Interpretation Comments eGFR (test code = eGFR) 86 [facility]2015-12-28 16:57:00 Test Item Value Reference Range Interpretation Comments Potassium Lvl (test code = Potassium 3.6 3.5-5.1 Lvl) [facility]2015-12-28 16:57:00 Test Item Value Reference Range Interpretation Comments CO2 (test code = CO2) 27 24-32 [facility]2015-12-28 16:57:00 Test Item Value Reference Range Interpretation Comments Chloride Lvl (test code = Chloride Lvl) 103 95-109 [facility]2015-12-28 16:57:00 Test Item Value Reference Range Interpretation Comments Calcium Lvl (test code = Calcium Lvl) 9.4 8.5-10.5 [facility]2015-12-28 16:57:00 Test Item Value Reference Range Interpretation Comments AST (test code = AST) 16 See_Comment [Auto mated message] The system which ge nerated this result transmit arvind reference range : <=37. The reference range was not used to interpr et this result as mario l/abnormal. [facility]2015-12-28 16:57:00 Test Item Value Reference Range Interpretation Comments ALT (test code = ALT) 43 See_Comment [Auto mated message] The system which ge nerated this result transmit arvind reference range : <=65. The reference range was not used to interpr et this result as mario l/abnormal. [facility]2015-12-28 16:57:00 Test Item Value Reference Range Interpretation Comments Alk Phos (test code = Alk Phos) 97 39-136 [facility]2015-12-28 16:57:00 Test Item Value Reference Range Interpretation Comments Albumin Lvl (test code = Albumin Lvl) 3.6 3.5-5.0 [facility]2015-12-28 16:57:00 Test Item Value Reference Range Interpretation Comments Total Protein (test code = Total 7.3 6.4-8.4 Protein) [facility]2015-12-28 16:57:00 Test Item Value Reference Range Interpretation Comments Bili Total (test code = Bili Total) 0.4 0.2-1.3 [facility]2015-12-28 16:57:00 Test Item Value Reference Range Interpretation Comments Glucose Lvl (test code = Glucose Lvl) 95 70-99 [facility]2015-12-28 16:57:00 Test Item Value Reference Range Interpretation Comments Creatinine Lvl (test code = Creatinine 0.93 0.50-1.40 Lvl) [facility]2015-12-28 16:57:00 Test Item Value Reference Range Interpretation Comments BUN (test code = BUN) 9 7-22 [facility]2015-12-28 16:57:00 Test Item Value Reference Range Interpretation Comments Sodium Lvl (test code = Sodium Lvl) 139 135-145 [facility]2015-12-28 16:57:00 Test Item Value Reference Range Interpretation Comments A/G Ratio (test code = A/G Ratio) 1.0 0.7-1.6 [facility]2015-12-28 16:57:00 Test Item Value Reference Range Interpretation Comments Globulin (test code = Globulin) 3.7 2.0-4.0 [facility]2015-12-28 16:57:00 Test Item Value Reference Range Interpretation Comments B/C Ratio (test code = B/C Ratio) 10 6-25 [facility]2015-12-28 16:57:00 Test Item Value Reference Range Interpretation Comments AGAP (test code = AGAP) 12.6 10.0-20.0 [facility]KKXMCOJNTNMDA4979-17-45 16:57:00 Test Item Value Reference Range Interpretation Comments S Preg (test code = S Negative *NA*(08/26/15 Preg) 10:57 AM) [facility] HeightsTojppctCLWRLUXXUA3699-54-33 16:57:00 Test Item Value Reference Range Interpretation Comments Eosinophils # (test code 0.4 See_Comment [A utomated message] The = Eosinophils #) system whic h generated this result tra nsmitted reference range : <=0.5. The reference r kat was not used to int erpret this result as normal/abnormal . [facility] HeightsRcxnoixPISDKBWYIE5344-72-75 16:57:00 Test Item Value Reference Range Interpretation Comments Microcyte (test code = 1+ *ABN*(08/26/15 Microcyte) 10:57 AM) [facility] HeightsTqzxcleCCTOQAIHVF6808-17-72 16:57:00 Test Item Value Reference Range Interpretation Comments Basophils # (test code 0.1 See_Comment [Aut omated message] The = Basophils #) system which generated this result tra nsmitted reference range : <=0.2. The reference r kat was not used to int erpret this result as normal/abnormal . [facility] HeightsOddqeisMQCHEIMSOH9309-84-73 16:57:00 Test Item Value Reference Range Interpretation Comments Monocytes (test code = Monocytes) 8.6 2.0-12.0 [facility] HeightsCidwopkESBSZYKKJP4876-41-51 16:57:00 Test Item Value Reference Range Interpretation Comments Lymphocytes (test code = Lymphocytes) 40.6 20.0-40.0 [facility] HeightsLvesmifDGEZTIUUHY4252-79-57 16:57:00 Test Item Value Reference Range Interpretation Comments Eosinophils (test code = 5.0 See_Comment [A utomated message] The Eosinophils) system which ge nerated this result tra nsmitted reference range : <=4.0. The reference r kat was not used to int erpret this result as normal/abnormal . [facility] HeightsRviwygcOSGRYHXVQR4869-02-01 16:57:00 Test Item Value Reference Range Interpretation Comments Segs (test code = Segs) 44.8 45.0-75.0 [facility] HeightsOjnzguoJFYTNGYAPL0830-91-41 16:57:00 Test Item Value Reference Range Interpretation Comments Basophils (test code = 1.0 See_Comment [Aut omated message] The Basophils) system which ge nerated this result tra nsmitted reference range : <=1.0. The reference r kat was not used to int erpret this result as normal/abnormal . [facility] HeightsXpvcadxDAGHNCXHMA5142-38-58 16:57:00 Test Item Value Reference Range Interpretation Comments Segs-Bands # (test code = Segs-Bands #) 3.3 1.5-8.1 [facility] HeightsHjqluslPUMLGNGVCF1658-94-23 16:57:00 Test Item Value Reference Range Interpretation Comments Monocytes # (test code 0.6 See_Comment [Aut omated message] The = Monocytes #) system which generated this result tra nsmitted reference range : <=0.8. The reference r kat was not used to int erpret this result as normal/abnormal . [facility] HeightsAjonjrnYBOMTIMDLT1196-35-17 16:57:00 Test Item Value Reference Range Interpretation Comments Lymphocytes # (test code = Lymphocytes 3.0 1.0-5.5 #) [facility] HeightsCopouchQGMENITORR8961-71-02 16:57:00 Test Item Value Reference Range Interpretation Comments PT (test code = PT) 14.0 s 12.0-14.7 [facility] HeightsNopmbpdDXPMDNIDHB3462-85-67 16:57:00 Test Item Value Reference Range Interpretation Comments INR (test code = INR) 1.05 0.85-1.17 [facility] HeightsNqddmaoTUVSWJYLXF3197-50-12 16:57:00 Test Item Value Reference Range Interpretation Comments PTT (test code = PTT) 30.3 s 22.9-35.8 [facility] HeightsAmgjlujKJRDTMXKHE9603-49-65 16:57:00 Test Item Value Reference Range Interpretation Comments MPV (test code = MPV) 8.9 7.4-10.4 [facility] HeightsJmddbeoMRUNJOOLBC6650-43-47 16:57:00 Test Item Value Reference Range Interpretation Comments RDW (test code = RDW) 15.8 11.5-14.5 [facility] HeightsXqsyejiMOUUMMRQZO5246-90-36 16:57:00 Test Item Value Reference Range Interpretation Comments Platelet (test code = Platelet) 271 133-450 [facility] HeightsBwzoqrgTUCOJKAOTU8562-48-68 16:57:00 Test Item Value Reference Range Interpretation Comments WBC (test code = WBC) 7.3 3.7-10.4 [facility] HeightsJsqyltqVQBBKIVGKZ4054-94-10 16:57:00 Test Item Value Reference Range Interpretation Comments RBC (test code = RBC) 5.14 4.20-5.40 [facility] HeightsAfttokhDFARJPTKFE4064-22-65 16:57:00 Test Item Value Reference Range Interpretation Comments MCV (test code = MCV) 77.9 80.0-98.0 [facility] HeightsFgvqknsVFMBRNRQFC0839-33-16 16:57:00 Test Item Value Reference Range Interpretation Comments MCH (test code = MCH) 23.9 pg 27.0-31.0 [facility] HeightsMebpfukNAYMFUQSHC0509-17-87 16:57:00 Test Item Value Reference Range Interpretation Comments MCHC (test code = MCHC) 30.7 32.0-36.0 [facility] HeightsZxmnibtAGKDZDAITP2399-11-96 16:57:00 Test Item Value Reference Range Interpretation Comments Hct (test code = Hct) 40.1 36.0-48.0 [facility] HeightsTrmffnlZVBUBBNJDU4423-24-62 16:57:00 Test Item Value Reference Range Interpretation Comments Hgb (test code = Hgb) 12.3 12.0-16.0 [facility]2015-12-28 16:57:00 Test Item Value Reference Range Interpretation Comments eGFR (test code = eGFR) 86 [place] 372445-12-28 16:57:00 Test Item Value Reference Range Interpretation Comments Potassium Lvl (test code = Potassium 3.6 3.5-5.1 Lvl) [facility]2015-12-28 16:57:00 Test Item Value Reference Range Interpretation Comments CO2 (test code = CO2) 27 24-32 [place] 372445-12-28 16:57:00 Test Item Value Reference Range Interpretation Comments Chloride Lvl (test code = Chloride Lvl) 103 95-109 [facility]2015-12-28 16:57:00 Test Item Value Reference Range Interpretation Comments Calcium Lvl (test code = Calcium Lvl) 9.4 8.5-10.5 [facility]2015-12-28 16:57:00 Test Item Value Reference Range Interpretation Comments AST (test code = AST) 16 See_Comment [Auto mated message] The system which ge nerated this result transmit arvind reference range : <=37. The reference range was not used to interpr et this result as mario l/abnormal. [facility]2015-12-28 16:57:00 Test Item Value Reference Range Interpretation Comments ALT (test code = ALT) 43 See_Comment [Auto mated message] The system which ge nerated this result transmit arvind reference range : <=65. The reference range was not used to interpr et this result as mario l/abnormal. [facility]2015-12-28 16:57:00 Test Item Value Reference Range Interpretation Comments Alk Phos (test code = Alk Phos) 97 39-136 [facility]2015-12-28 16:57:00 Test Item Value Reference Range Interpretation Comments Albumin Lvl (test code = Albumin Lvl) 3.6 3.5-5.0 [facility]2015-12-28 16:57:00 Test Item Value Reference Range Interpretation Comments Total Protein (test code = Total 7.3 6.4-8.4 Protein) [facility]2015-12-28 16:57:00 Test Item Value Reference Range Interpretation Comments Bili Total (test code = Bili Total) 0.4 0.2-1.3 [facility]2015-12-28 16:57:00 Test Item Value Reference Range Interpretation Comments Glucose Lvl (test code = Glucose Lvl) 95 70-99 [facility]2015-12-28 16:57:00 Test Item Value Reference Range Interpretation Comments Creatinine Lvl (test code = Creatinine 0.93 0.50-1.40 Lvl) [facility]2015-12-28 16:57:00 Test Item Value Reference Range Interpretation Comments BUN (test code = BUN) 9 - [facility]2015-12-28 16:57:00 Test Item Value Reference Range Interpretation Comments Sodium Lvl (test code = Sodium Lvl) 139 135-145 [facility]2015-12-28 16:57:00 Test Item Value Reference Range Interpretation Comments A/G Ratio (test code = A/G Ratio) 1.0 0.7-1.6 [facility]2015-12-28 16:57:00 Test Item Value Reference Range Interpretation Comments Globulin (test code = Globulin) 3.7 2.0-4.0 [facility]2015-12-28 16:57:00 Test Item Value Reference Range Interpretation Comments B/C Ratio (test code = B/C Ratio) 10 - [facility]2015-12-28 16:57:00 Test Item Value Reference Range Interpretation Comments AGAP (test code = AGAP) 12.6 10.0-20.0 [facility]ZtippidCQXVCUQSIOORY4033-71-71 16:57:00 Test Item Value Reference Range Interpretation Comments S Preg (test code = S Negative *NA*(08/26/15 Preg) 10:57 AM) [facility]EQHUPSBFEC8397[facility] 16:57:00 Test Item Value Reference Range Interpretation Comments Eosinophils # (test code 0.4 See_Comment [A utomated message] The = Eosinophils #) system whic h generated this result tra nsmitted reference range : <=0.5. The reference r kat was not used to int erpret this result as normal/abnormal . [facility] HeightsRjocridGGMWKBEDNP2625-49-11 16:57:00 Test Item Value Reference Range Interpretation Comments Microcyte (test code = 1+ *ABN*(08/26/15 Microcyte) 10:57 AM) [facility] HeightsWnqubpzVZJCXLOPOT0835-20-29 16:57:00 Test Item Value Reference Range Interpretation Comments Basophils # (test code 0.1 See_Comment [Aut omated message] The = Basophils #) system which generated this result tra nsmitted reference range : <=0.2. The reference r kat was not used to int erpret this result as normal/abnormal . [facility] HeightsFpsmzdeMRAHFAFYLH8708-38-39 16:57:00 Test Item Value Reference Range Interpretation Comments Monocytes (test code = Monocytes) 8.6 2.0-12.0 [facility] HeightsTvifzvwYQUEUUHVIQ1159-01-77 16:57:00 Test Item Value Reference Range Interpretation Comments Lymphocytes (test code = Lymphocytes) 40.6 20.0-40.0 [facility] HeightsDfzvwksEGCNMEZRJZ9659-36-29 16:57:00 Test Item Value Reference Range Interpretation Comments Eosinophils (test code = 5.0 See_Comment [A utomated message] The Eosinophils) system which ge nerated this result tra nsmitted reference range : <=4.0. The reference r kat was not used to int erpret this result as normal/abnormal . [facility] HeightsNuqixdrJSSGHLGJTD9057-23-95 16:57:00 Test Item Value Reference Range Interpretation Comments Segs (test code = Segs) 44.8 45.0-75.0 [facility] HeightsRiknuadSXWEJQFXLY1861-01-04 16:57:00 Test Item Value Reference Range Interpretation Comments Basophils (test code = 1.0 See_Comment [Aut omated message] The Basophils) system which ge nerated this result tra nsmitted reference range : <=1.0. The reference r kat was not used to int erpret this result as normal/abnormal . [facility] HeightsXzbtuhdWOAGPVZENV2514-92-00 16:57:00 Test Item Value Reference Range Interpretation Comments Segs-Bands # (test code = Segs-Bands #) 3.3 1.5-8.1 [facility] HeightsBxafwthDRDIGOIMQI4193-31-13 16:57:00 Test Item Value Reference Range Interpretation Comments Monocytes # (test code 0.6 See_Comment [Aut omated message] The = Monocytes #) system which generated this result tra nsmitted reference range : <=0.8. The reference r kat was not used to int erpret this result as normal/abnormal . [facility] HeightsTpgoxpfYFOAPSJIVH2897-77-20 16:57:00 Test Item Value Reference Range Interpretation Comments Lymphocytes # (test code = Lymphocytes 3.0 1.0-5.5 #) [facility] HeightsXjvpwsrXRTPTBSVST3482-43-59 16:57:00 Test Item Value Reference Range Interpretation Comments PT (test code = PT) 14.0 s 12.0-14.7 [facility] HeightsZootzcaUDZUJUYMET5524-11-46 16:57:00 Test Item Value Reference Range Interpretation Comments INR (test code = INR) 1.05 0.85-1.17 [facility] HeightsCeudqdsRJJICLQIEH4861-54-00 16:57:00 Test Item Value Reference Range Interpretation Comments PTT (test code = PTT) 30.3 s 22.9-35.8 [facility] HeightsQuidryjAKKKTKZAIL8408-92-72 16:57:00 Test Item Value Reference Range Interpretation Comments MPV (test code = MPV) 8.9 7.4-10.4 [facility] HeightsYtspocrTUTYKADELR3176-52-76 16:57:00 Test Item Value Reference Range Interpretation Comments RDW (test code = RDW) 15.8 11.5-14.5 [facility] HeightsSxhiiycCNMVEPFEWS7903-02-69 16:57:00 Test Item Value Reference Range Interpretation Comments Platelet (test code = Platelet) 271 133-450 [facility] HeightsJspzalhAEOBCHRDQC3092-29-80 16:57:00 Test Item Value Reference Range Interpretation Comments WBC (test code = WBC) 7.3 3.7-10.4 [facility] HeightsGcwxkfzFHIKXIRWML2860-03-14 16:57:00 Test Item Value Reference Range Interpretation Comments RBC (test code = RBC) 5.14 4.20-5.40 [facility] HeightsAzkkfivBOEDQBHSLF8140-57-27 16:57:00 Test Item Value Reference Range Interpretation Comments MCV (test code = MCV) 77.9 80.0-98.0 [facility] HeightsIqgvkrvMRLWSBIEBG0778-46-94 16:57:00 Test Item Value Reference Range Interpretation Comments MCH (test code = MCH) 23.9 pg 27.0-31.0 [facility] HeightsBuulkqyCBUIPRNUBC7160-28-52 16:57:00 Test Item Value Reference Range Interpretation Comments MCHC (test code = MCHC) 30.7 32.0-36.0 [facility] HeightsAgjcjmvBDWSPBXXTF3175-72-38 16:57:00 Test Item Value Reference Range Interpretation Comments Hct (test code = Hct) 40.1 36.0-48.0 [facility] HeightsAbguchqXKFIDMUAEX3451-69-44 16:57:00 Test Item Value Reference Range Interpretation Comments Hgb (test code = Hgb) 12.3 12.0-16.0 [facility]2015-12-28 16:57:00 Test Item Value Reference Range Interpretation Comments eGFR (test code = eGFR) 86 [facility]2015-12-28 16:57:00 Test Item Value Reference Range Interpretation Comments Potassium Lvl (test code = Potassium 3.6 3.5-5.1 Lvl) [facility]2015-12-28 16:57:00 Test Item Value Reference Range Interpretation Comments CO2 (test code = CO2) 27 24-32 [facility]2015-12-28 16:57:00 Test Item Value Reference Range Interpretation Comments Chloride Lvl (test code = Chloride Lvl) 103 95-109 [facility]2015-12-28 16:57:00 Test Item Value Reference Range Interpretation Comments Calcium Lvl (test code = Calcium Lvl) 9.4 8.5-10.5 [facility]2015-12-28 16:57:00 Test Item Value Reference Range Interpretation Comments AST (test code = AST) 16 See_Comment [Auto mated message] The system which ge nerated this result transmit arvind reference range : <=37. The reference range was not used to interpr et this result as mario l/abnormal. [facility]2015-12-28 16:57:00 Test Item Value Reference Range Interpretation Comments ALT (test code = ALT) 43 See_Comment [Auto mated message] The system which ge nerated this result transmit arvind reference range : <=65. The reference range was not used to interpr et this result as mario l/abnormal. [facility]2015-12-28 16:57:00 Test Item Value Reference Range Interpretation Comments Alk Phos (test code = Alk Phos) 97 39-136 [facility]2015-12-28 16:57:00 Test Item Value Reference Range Interpretation Comments Albumin Lvl (test code = Albumin Lvl) 3.6 3.5-5.0 [facility]2015-12-28 16:57:00 Test Item Value Reference Range Interpretation Comments Total Protein (test code = Total 7.3 6.4-8.4 Protein) [facility]2015-12-28 16:57:00 Test Item Value Reference Range Interpretation Comments Bili Total (test code = Bili Total) 0.4 0.2-1.3 [facility]2015-12-28 16:57:00 Test Item Value Reference Range Interpretation Comments Glucose Lvl (test code = Glucose Lvl) 95 70-99 [facility]2015-12-28 16:57:00 Test Item Value Reference Range Interpretation Comments Creatinine Lvl (test code = Creatinine 0.93 0.50-1.40 Lvl) [facility]2015-12-28 16:57:00 Test Item Value Reference Range Interpretation Comments BUN (test code = BUN) 9 7-22 [facility]2015-12-28 16:57:00 Test Item Value Reference Range Interpretation Comments Sodium Lvl (test code = Sodium Lvl) 139 135-145 [facility]2015-12-28 16:57:00 Test Item Value Reference Range Interpretation Comments A/G Ratio (test code = A/G Ratio) 1.0 0.7-1.6 [facility]2015-12-28 16:57:00 Test Item Value Reference Range Interpretation Comments Globulin (test code = Globulin) 3.7 2.0-4.0 [facility]2015-12-28 16:57:00 Test Item Value Reference Range Interpretation Comments B/C Ratio (test code = B/C Ratio) 10 6-25 [facility]2015-12-28 16:57:00 Test Item Value Reference Range Interpretation Comments AGAP (test code = AGAP) 12.6 10.0-20.0 [place] 88827015-12-28 16:57:00 Test Item Value Reference Range Interpretation Comments S Preg (test code = S Negative *NA*(08/26/15 Preg) 10:57 AM) [facility] HeightsNgebtqhCVSKFOGKOS8573-59-66 16:57:00 Test Item Value Reference Range Interpretation Comments Eosinophils # (test code 0.4 See_Comment [A utomated message] The = Eosinophils #) system whic h generated this result tra nsmitted reference range : <=0.5. The reference r kat was not used to int erpret this result as normal/abnormal . [facility] HeightsTaieybaOSOFTVKWXV5514-31-02 16:57:00 Test Item Value Reference Range Interpretation Comments Microcyte (test code = 1+ *ABN*(08/26/15 Microcyte) 10:57 AM) [facility] HeightsSgmznivRZHYAAYQKZ8791-17-14 16:57:00 Test Item Value Reference Range Interpretation Comments Basophils # (test code 0.1 See_Comment [Aut omated message] The = Basophils #) system which generated this result tra nsmitted reference range : <=0.2. The reference r kat was not used to int erpret this result as normal/abnormal . [facility] HeightsWuzdluxCYWPZFZDWX9534-72-58 16:57:00 Test Item Value Reference Range Interpretation Comments Monocytes (test code = Monocytes) 8.6 2.0-12.0 [facility] HeightsSfhszqySXXSQBUNNO7411-87-51 16:57:00 Test Item Value Reference Range Interpretation Comments Lymphocytes (test code = Lymphocytes) 40.6 20.0-40.0 [facility] HeightsBltvamiWJNSQXVAQO5843-67-86 16:57:00 Test Item Value Reference Range Interpretation Comments Eosinophils (test code = 5.0 See_Comment [A utomated message] The Eosinophils) system which ge nerated this result tra nsmitted reference range : <=4.0. The reference r kat was not used to int erpret this result as normal/abnormal . [facility] HeightsXkkraduBLHHGMLLDG9233-20-54 16:57:00 Test Item Value Reference Range Interpretation Comments Segs (test code = Segs) 44.8 45.0-75.0 [facility] HeightsHwcwfkxXVAUGVLRVN6297-82-92 16:57:00 Test Item Value Reference Range Interpretation Comments Basophils (test code = 1.0 See_Comment [Aut omated message] The Basophils) system which ge nerated this result tra nsmitted reference range : <=1.0. The reference r kat was not used to int erpret this result as normal/abnormal . [facility] HeightsEqecdibNMVSEYEWAJ1801-35-25 16:57:00 Test Item Value Reference Range Interpretation Comments Segs-Bands # (test code = Segs-Bands #) 3.3 1.5-8.1 [facility] HeightsEvfssutGGGAIDUBIC2630-48-93 16:57:00 Test Item Value Reference Range Interpretation Comments Monocytes # (test code 0.6 See_Comment [Aut omated message] The = Monocytes #) system which generated this result tra nsmitted reference range : <=0.8. The reference r kat was not used to int erpret this result as normal/abnormal . [facility] HeightsRoiviuiUCUJMZFFEM6259-52-75 16:57:00 Test Item Value Reference Range Interpretation Comments Lymphocytes # (test code = Lymphocytes 3.0 1.0-5.5 #) [facility] HeightsXjzokodFYRHSXENCF2420-99-39 16:57:00 Test Item Value Reference Range Interpretation Comments PT (test code = PT) 14.0 s 12.0-14.7 [facility] HeightsNwdwnkaNTUXUOYADX1360-42-19 16:57:00 Test Item Value Reference Range Interpretation Comments INR (test code = INR) 1.05 0.85-1.17 [facility] HeightsGqhoutqFWFFFUUXOO0605-70-33 16:57:00 Test Item Value Reference Range Interpretation Comments PTT (test code = PTT) 30.3 s 22.9-35.8 [facility] HeightsXaojrphVDYRBAZSER7616-79-64 16:57:00 Test Item Value Reference Range Interpretation Comments MPV (test code = MPV) 8.9 7.4-10.4 [facility] HeightsWwabxhiNCDIMLGACT8012-38-01 16:57:00 Test Item Value Reference Range Interpretation Comments RDW (test code = RDW) 15.8 11.5-14.5 [facility] HeightsOnxzzxhRORZIGMHBJ3099-45-71 16:57:00 Test Item Value Reference Range Interpretation Comments Platelet (test code = Platelet) 271 133-450 [facility] HeightsYarhvunYNXVXHTZAD9617-27-20 16:57:00 Test Item Value Reference Range Interpretation Comments WBC (test code = WBC) 7.3 3.7-10.4 [facility] HeightsClocuopQDFDQCFEGQ7311-46-27 16:57:00 Test Item Value Reference Range Interpretation Comments RBC (test code = RBC) 5.14 4.20-5.40 [facility] HeightsXxmnfnaTHULVXCLST9622-10-58 16:57:00 Test Item Value Reference Range Interpretation Comments MCV (test code = MCV) 77.9 80.0-98.0 [facility] HeightsSixwktjGXOBQTSDTK6332-40-28 16:57:00 Test Item Value Reference Range Interpretation Comments MCH (test code = MCH) 23.9 pg 27.0-31.0 [facility] HeightsTmocgnkSFWBYADSSO0245-79-28 16:57:00 Test Item Value Reference Range Interpretation Comments MCHC (test code = MCHC) 30.7 32.0-36.0 [facility] HeightsQqcfanlRQJUBZPNLK6038-26-24 16:57:00 Test Item Value Reference Range Interpretation Comments Hct (test code = Hct) 40.1 36.0-48.0 [facility] HeightsRiphcgbHYKDBLAHDT2442-41-87 16:57:00 Test Item Value Reference Range Interpretation Comments Hgb (test code = Hgb) 12.3 12.0-16.0 [facility]2015-12-28 16:57:00 Test Item Value Reference Range Interpretation Comments eGFR (test code = eGFR) 86 [facility]2015-12-28 16:57:00 Test Item Value Reference Range Interpretation Comments Potassium Lvl (test code = Potassium 3.6 3.5-5.1 Lvl) [facility]2015-12-28 16:57:00 Test Item Value Reference Range Interpretation Comments CO2 (test code = CO2) 27 24-32 [facility]2015-12-28 16:57:00 Test Item Value Reference Range Interpretation Comments Chloride Lvl (test code = Chloride Lvl) 103 95-109 [facility]2015-12-28 16:57:00 Test Item Value Reference Range Interpretation Comments Calcium Lvl (test code = Calcium Lvl) 9.4 8.5-10.5 [facility]2015-12-28 16:57:00 Test Item Value Reference Range Interpretation Comments AST (test code = AST) 16 See_Comment [Auto mated message] The system which ge nerated this result transmit arvind reference range : <=37. The reference range was not used to interpr et this result as mario l/abnormal. [facility]2015-12-28 16:57:00 Test Item Value Reference Range Interpretation Comments ALT (test code = ALT) 43 See_Comment [Auto mated message] The system which ge nerated this result transmit arvind reference range : <=65. The reference range was not used to interpr et this result as mario l/abnormal. [facility]2015-12-28 16:57:00 Test Item Value Reference Range Interpretation Comments Alk Phos (test code = Alk Phos) 97 39-136 [facility]2015-12-28 16:57:00 Test Item Value Reference Range Interpretation Comments Albumin Lvl (test code = Albumin Lvl) 3.6 3.5-5.0 [facility]2015-12-28 16:57:00 Test Item Value Reference Range Interpretation Comments Total Protein (test code = Total 7.3 6.4-8.4 Protein) [facility]2015-12-28 16:57:00 Test Item Value Reference Range Interpretation Comments Bili Total (test code = Bili Total) 0.4 0.2-1.3 [facility]2015-12-28 16:57:00 Test Item Value Reference Range Interpretation Comments Glucose Lvl (test code = Glucose Lvl) 95 70-99 [facility]2015-12-28 16:57:00 Test Item Value Reference Range Interpretation Comments Creatinine Lvl (test code = Creatinine 0.93 0.50-1.40 Lvl) [facility]2015-12-28 16:57:00 Test Item Value Reference Range Interpretation Comments BUN (test code = BUN) 9 7-22 [facility]2015-12-28 16:57:00 Test Item Value Reference Range Interpretation Comments Sodium Lvl (test code = Sodium Lvl) 139 135-145 [facility]2015-12-28 16:57:00 Test Item Value Reference Range Interpretation Comments A/G Ratio (test code = A/G Ratio) 1.0 0.7-1.6 [facility]2015-12-28 16:57:00 Test Item Value Reference Range Interpretation Comments Globulin (test code = Globulin) 3.7 2.0-4.0 [place] 372445-12-28 16:57:00 Test Item Value Reference Range Interpretation Comments B/C Ratio (test code = B/C Ratio) 10 6-25 [facility]2015-12-28 16:57:00 Test Item Value Reference Range Interpretation Comments AGAP (test code = AGAP) 12.6 10.0-20.0 [facility]DfuqqyhYCJLCLBAUMTCY9875-46-27 16:57:00 Test Item Value Reference Range Interpretation Comments S Preg (test code = S Negative *NA*(08/26/15 Preg) 10:57 AM) [facility] HeightsTuralzsXNCLIRWMKJ4966-97-00 16:57:00 Test Item Value Reference Range Interpretation Comments Eosinophils # (test code 0.4 See_Comment [A utomated message] The = Eosinophils #) system whic h generated this result tra nsmitted reference range : <=0.5. The reference r kat was not used to int erpret this result as normal/abnormal . [facility] HeightsUqojchbUNTWRBRBQC7386-06-22 16:57:00 Test Item Value Reference Range Interpretation Comments Microcyte (test code = 1+ *ABN*(08/26/15 Microcyte) 10:57 AM) [facility] HeightsCziasusWJOQUROTMT9385-62-18 16:57:00 Test Item Value Reference Range Interpretation Comments Basophils # (test code 0.1 See_Comment [Aut omated message] The = Basophils #) system which generated this result tra nsmitted reference range : <=0.2. The reference r kat was not used to int erpret this result as normal/abnormal . [facility] HeightsGsmfhpcQNRILGFMCB2418-80-09 16:57:00 Test Item Value Reference Range Interpretation Comments Monocytes (test code = Monocytes) 8.6 2.0-12.0 [facility] HeightsVdfewmiRYZPBVOKNN0801-84-71 16:57:00 Test Item Value Reference Range Interpretation Comments Lymphocytes (test code = Lymphocytes) 40.6 20.0-40.0 [facility] HeightsFdvduigXCVKCCYTIL6334-50-29 16:57:00 Test Item Value Reference Range Interpretation Comments Eosinophils (test code = 5.0 See_Comment [A utomated message] The Eosinophils) system which ge nerated this result tra nsmitted reference range : <=4.0. The reference r kat was not used to int erpret this result as normal/abnormal . [facility] HeightsCthwdpnKDAXEXOXGR7014-72-79 16:57:00 Test Item Value Reference Range Interpretation Comments Segs (test code = Segs) 44.8 45.0-75.0 [facility] HeightsGbsxyenXIFXYKYZMH2272-05-26 16:57:00 Test Item Value Reference Range Interpretation Comments Basophils (test code = 1.0 See_Comment [Aut omated message] The Basophils) system which ge nerated this result tra nsmitted reference range : <=1.0. The reference r kat was not used to int erpret this result as normal/abnormal . [facility] HeightsOfrixddGSZARKWILN9694-09-15 16:57:00 Test Item Value Reference Range Interpretation Comments Segs-Bands # (test code = Segs-Bands #) 3.3 1.5-8.1 [facility] HeightsAdujknjSMVYNHTQSM9338-25-26 16:57:00 Test Item Value Reference Range Interpretation Comments Monocytes # (test code 0.6 See_Comment [Aut omated message] The = Monocytes #) system which generated this result tra nsmitted reference range : <=0.8. The reference r kat was not used to int erpret this result as normal/abnormal . [facility] HeightsAceuqdaRFVCLHOHPL1027-92-58 16:57:00 Test Item Value Reference Range Interpretation Comments Lymphocytes # (test code = Lymphocytes 3.0 1.0-5.5 #) [facility] HeightsKxngtwuCUNUMCBHRM4919-12-08 16:57:00 Test Item Value Reference Range Interpretation Comments PT (test code = PT) 14.0 s 12.0-14.7 [facility] HeightsFcdsbdmIOEOHGNWGP9426-62-75 16:57:00 Test Item Value Reference Range Interpretation Comments INR (test code = INR) 1.05 0.85-1.17 [facility] HeightsRvybqidDFZWQYVXDO7887-60-13 16:57:00 Test Item Value Reference Range Interpretation Comments PTT (test code = PTT) 30.3 s 22.9-35.8 [facility] HeightsYnvzpavFOTKRFWBDP8710-91-69 16:57:00 Test Item Value Reference Range Interpretation Comments MPV (test code = MPV) 8.9 7.4-10.4 [facility] HeightsWcuudjiKPZNRAILTR9885-42-29 16:57:00 Test Item Value Reference Range Interpretation Comments RDW (test code = RDW) 15.8 11.5-14.5 [facility] HeightsCuvwnagEVCYWXNKPZ7761-66-66 16:57:00 Test Item Value Reference Range Interpretation Comments Platelet (test code = Platelet) 271 133-450 [facility] HeightsZekqisiZWHWGQCCKC4920-82-92 16:57:00 Test Item Value Reference Range Interpretation Comments WBC (test code = WBC) 7.3 3.7-10.4 [facility] HeightsEdojjrdKIEDBZSAFH1387-76-17 16:57:00 Test Item Value Reference Range Interpretation Comments RBC (test code = RBC) 5.14 4.20-5.40 [facility] HeightsLkmcfbgVPHFLSFDHN3269-77-16 16:57:00 Test Item Value Reference Range Interpretation Comments MCV (test code = MCV) 77.9 80.0-98.0 [facility] HeightsOikpulkLKUKMRSCBV5773-06-49 16:57:00 Test Item Value Reference Range Interpretation Comments MCH (test code = MCH) 23.9 pg 27.0-31.0 [facility] HeightsJiusgxlKWKTQLDOQK9271-76-21 16:57:00 Test Item Value Reference Range Interpretation Comments MCHC (test code = MCHC) 30.7 32.0-36.0 [facility] HeightsYcvledfTORYRHCQUU5892-65-32 16:57:00 Test Item Value Reference Range Interpretation Comments Hct (test code = Hct) 40.1 36.0-48.0 [facility] HeightsJabwuqdHFUNGRDZJU1628-93-96 16:57:00 Test Item Value Reference Range Interpretation Comments Hgb (test code = Hgb) 12.3 12.0-16.0 [facility]2015-12-18 10:58:00 Test Item Value Reference Range Interpretation Comments eGFR (test code = eGFR) 126 [facility]2015-12-18 10:58:00 Test Item Value Reference Range Interpretation Comments AST (test code = AST) 29 See_Comment [Auto mated message] The system which ge nerated this result transmit arvind reference range : <=37. The reference range was not used to interpr et this result as mario l/abnormal. [facility]2015-12-18 10:58:00 Test Item Value Reference Range Interpretation Comments Alk Phos (test code = Alk Phos) 86 39-136 [facility]2015-12-18 10:58:00 Test Item Value Reference Range Interpretation Comments Bili Total (test code = Bili Total) 0.3 0.2-1.3 [facility]2015-12-18 10:58:00 Test Item Value Reference Range Interpretation Comments ALT (test code = ALT) 50 See_Comment [Auto mated message] The system which ge nerated this result transmit arvind reference range : <=65. The reference range was not used to interpr et this result as mario l/abnormal. [facility]2015-12-18 10:58:00 Test Item Value Reference Range Interpretation Comments Sodium Lvl (test code = Sodium Lvl) 136 135-145 [facility]2015-12-18 10:58:00 Test Item Value Reference Range Interpretation Comments Potassium Lvl (test code = Potassium 4.0 3.5-5.1 Lvl) [facility]2015-12-18 10:58:00 Test Item Value Reference Range Interpretation Comments Creatinine Lvl (test code = Creatinine 0.62 0.50-1.40 Lvl) [facility]2015-12-18 10:58:00 Test Item Value Reference Range Interpretation Comments Glucose Lvl (test code = Glucose Lvl) 101 70-99 [facility]2015-12-18 10:58:00 Test Item Value Reference Range Interpretation Comments BUN (test code = BUN) 5 7-22 [facility]2015-12-18 10:58:00 Test Item Value Reference Range Interpretation Comments Total Protein (test code = Total 5.8 6.4-8.4 Protein) [facility]2015-12-18 10:58:00 Test Item Value Reference Range Interpretation Comments Albumin Lvl (test code = Albumin Lvl) 3.2 3.5-5.0 [facility]2015-12-18 10:58:00 Test Item Value Reference Range Interpretation Comments Chloride Lvl (test code = Chloride Lvl) 100 95-109 [facility]2015-12-18 10:58:00 Test Item Value Reference Range Interpretation Comments Calcium Lvl (test code = Calcium Lvl) 8.6 8.5-10.5 [facility]2015-12-18 10:58:00 Test Item Value Reference Range Interpretation Comments CO2 (test code = CO2) 27 24-32 [facility]2015-12-18 10:58:00 Test Item Value Reference Range Interpretation Comments B/C Ratio (test code = B/C Ratio) 8 6-25 [facility]2015-12-18 10:58:00 Test Item Value Reference Range Interpretation Comments Globulin (test code = Globulin) 2.6 2.0-4.0 [facility]2015-12-18 10:58:00 Test Item Value Reference Range Interpretation Comments A/G Ratio (test code = A/G Ratio) 1.2 0.7-1.6 [facility]2015-12-18 10:58:00 Test Item Value Reference Range Interpretation Comments AGAP (test code = AGAP) 13.0 10.0-20.0 [facility] HeightsDlpgvgjQNYKNWNFQV7467-10-75 10:58:00 Test Item Value Reference Range Interpretation Comments Segs (test code = Segs) 74.2 45.0-75.0 [facility] HeightsBwkhfxoURNJTIEBXD3432-55-25 10:58:00 Test Item Value Reference Range Interpretation Comments Lymphocytes (test code = Lymphocytes) 18.3 20.0-40.0 [facility] HeightsXwtplbhUHHWLNDYHU7170-39-16 10:58:00 Test Item Value Reference Range Interpretation Comments Monocytes (test code = Monocytes) 7.0 2.0-12.0 [facility] HeightsKjzbepnADMWYPCNDC4894-81-55 10:58:00 Test Item Value Reference Range Interpretation Comments Basophils (test code = 0.3 See_Comment [Aut omated message] The Basophils) system which ge nerated this result tra nsmitted reference range : <=1.0. The reference r kat was not used to int erpret this result as normal/abnormal . [facility] HeightsWuwosbvEGOMTOFTCX1249-02-58 10:58:00 Test Item Value Reference Range Interpretation Comments Segs-Bands # (test code = Segs-Bands #) 8.1 1.5-8.1 [facility] HeightsZkzppfhJZAHMRQVIF0229-31-99 10:58:00 Test Item Value Reference Range Interpretation Comments Eosinophils (test code = 0.2 See_Comment [A utomated message] The Eosinophils) system which ge nerated this result tra nsmitted reference range : <=4.0. The reference r kat was not used to int erpret this result as normal/abnormal . [facility] HeightsIhlgyygATDACSMTTI7231-60-73 10:58:00 Test Item Value Reference Range Interpretation Comments Monocytes # (test code 0.8 See_Comment [Aut omated message] The = Monocytes #) system which generated this result tra nsmitted reference range : <=0.8. The reference r kat was not used to int erpret this result as normal/abnormal . [facility] HeightsHgvfbrrYSKJZGXYER0265-33-50 10:58:00 Test Item Value Reference Range Interpretation Comments Lymphocytes # (test code = Lymphocytes 2.0 1.0-5.5 #) [facility] HeightsTcmojiiRMIJLFULXZ6433-21-70 10:58:00 Test Item Value Reference Range Interpretation Comments Microcyte (test code = 1+ *ABN*(08/16/15 Microcyte) 4:58 AM) [facility] HeightsClorgqzZJPCLAUWIT7743-93-07 10:58:00 Test Item Value Reference Range Interpretation Comments MPV (test code = MPV) 8.9 7.4-10.4 [facility] HeightsDvtgodaGQKPTDLFOF2373-18-87 10:58:00 Test Item Value Reference Range Interpretation Comments MCV (test code = MCV) 77.3 80.0-98.0 [facility] HeightsWgsvmpnQKGDNNLUKV1977-89-57 10:58:00 Test Item Value Reference Range Interpretation Comments Hgb (test code = Hgb) 11.9 12.0-16.0 [facility] HeightsXjxtvugSIROCENYQH4806-34-61 10:58:00 Test Item Value Reference Range Interpretation Comments Hct (test code = Hct) 37.5 36.0-48.0 [facility] HeightsKtozqcxSISNHWMZJJ9740-57-93 10:58:00 Test Item Value Reference Range Interpretation Comments MCH (test code = MCH) 24.5 pg 27.0-31.0 [facility] HeightsAkbqtpyZSZGUJDRBK7057-96-27 10:58:00 Test Item Value Reference Range Interpretation Comments RBC (test code = RBC) 4.85 4.20-5.40 [facility] HeightsNacdrrxWZXOLTKWJL7556-16-21 10:58:00 Test Item Value Reference Range Interpretation Comments WBC (test code = WBC) 10.9 3.7-10.4 [facility] HeightsAdzdhaaCSBMCLBIQP1843-88-55 10:58:00 Test Item Value Reference Range Interpretation Comments RDW (test code = RDW) 15.9 11.5-14.5 [facility] HeightsGkvdjepHEDJEOVDOH7043-07-77 10:58:00 Test Item Value Reference Range Interpretation Comments MCHC (test code = MCHC) 31.7 32.0-36.0 [facility] 10:58:00 Test Item Value Reference Range Interpretation Comments Platelet (test code = Platelet) 242 133-450 [facility]2015-12-18 10:58:00 Test Item Value Reference Range Interpretation Comments eGFR (test code = eGFR) 126 [facility]2015-12-18 10:58:00 Test Item Value Reference Range Interpretation Comments AST (test code = AST) 29 See_Comment [Auto mated message] The system which ge nerated this result transmit arvind reference range : <=37. The reference range was not used to interpr et this result as mario l/abnormal. [facility]2015-12-18 10:58:00 Test Item Value Reference Range Interpretation Comments Alk Phos (test code = Alk Phos) 86 39-136 [facility]2015-12-18 10:58:00 Test Item Value Reference Range Interpretation Comments Bili Total (test code = Bili Total) 0.3 0.2-1.3 [facility]2015-12-18 10:58:00 Test Item Value Reference Range Interpretation Comments ALT (test code = ALT) 50 See_Comment [Auto mated message] The system which ge nerated this result transmit arvind reference range : <=65. The reference range was not used to interpr et this result as mario l/abnormal. [facility]2015-12-18 10:58:00 Test Item Value Reference Range Interpretation Comments Sodium Lvl (test code = Sodium Lvl) 136 135-145 [facility]2015-12-18 10:58:00 Test Item Value Reference Range Interpretation Comments Potassium Lvl (test code = Potassium 4.0 3.5-5.1 Lvl) [facility]2015-12-18 10:58:00 Test Item Value Reference Range Interpretation Comments Creatinine Lvl (test code = Creatinine 0.62 0.50-1.40 Lvl) [facility]2015-12-18 10:58:00 Test Item Value Reference Range Interpretation Comments Glucose Lvl (test code = Glucose Lvl) 101 70-99 [facility]2015-12-18 10:58:00 Test Item Value Reference Range Interpretation Comments BUN (test code = BUN) 5 7-22 [facility]2015-12-18 10:58:00 Test Item Value Reference Range Interpretation Comments Total Protein (test code = Total 5.8 6.4-8.4 Protein) [facility]2015-12-18 10:58:00 Test Item Value Reference Range Interpretation Comments Albumin Lvl (test code = Albumin Lvl) 3.2 3.5-5.0 [facility]2015-12-18 10:58:00 Test Item Value Reference Range Interpretation Comments Chloride Lvl (test code = Chloride Lvl) 100 95-109 [facility]2015-12-18 10:58:00 Test Item Value Reference Range Interpretation Comments Calcium Lvl (test code = Calcium Lvl) 8.6 8.5-10.5 [facility]2015-12-18 10:58:00 Test Item Value Reference Range Interpretation Comments CO2 (test code = CO2) 27 24-32 [facility]2015-12-18 10:58:00 Test Item Value Reference Range Interpretation Comments B/C Ratio (test code = B/C Ratio) 8 6-25 [facility]2015-12-18 10:58:00 Test Item Value Reference Range Interpretation Comments Globulin (test code = Globulin) 2.6 2.0-4.0 [facility]2015-12-18 10:58:00 Test Item Value Reference Range Interpretation Comments A/G Ratio (test code = A/G Ratio) 1.2 0.7-1.6 [facility]2015-12-18 10:58:00 Test Item Value Reference Range Interpretation Comments AGAP (test code = AGAP) 13.0 10.0-20.0 [facility] HeightsGyqllzxVSORCSJGBX5807-51-40 10:58:00 Test Item Value Reference Range Interpretation Comments Segs (test code = Segs) 74.2 45.0-75.0 [facility] HeightsMgihfbiHQBKWPXERV1259-84-52 10:58:00 Test Item Value Reference Range Interpretation Comments Lymphocytes (test code = Lymphocytes) 18.3 20.0-40.0 [facility] HeightsMztbbfxJDMLMXIATT9386-38-66 10:58:00 Test Item Value Reference Range Interpretation Comments Monocytes (test code = Monocytes) 7.0 2.0-12.0 [facility] HeightsVqsrldmLQCDODWYQK1710-93-76 10:58:00 Test Item Value Reference Range Interpretation Comments Basophils (test code = 0.3 See_Comment [Aut omated message] The Basophils) system which ge nerated this result tra nsmitted reference range : <=1.0. The reference r kat was not used to int erpret this result as normal/abnormal . [facility] HeightsOjbasxgQSXIEJJSBT5859-16-28 10:58:00 Test Item Value Reference Range Interpretation Comments Segs-Bands # (test code = Segs-Bands #) 8.1 1.5-8.1 [facility] HeightsQsypapfIHAAHAHMSD1286-13-45 10:58:00 Test Item Value Reference Range Interpretation Comments Eosinophils (test code = 0.2 See_Comment [A utomated message] The Eosinophils) system which ge nerated this result tra nsmitted reference range : <=4.0. The reference r kat was not used to int erpret this result as normal/abnormal . [facility] HeightsSrodkfxIUBIAOKNVJ7974-75-16 10:58:00 Test Item Value Reference Range Interpretation Comments Monocytes # (test code 0.8 See_Comment [Aut omated message] The = Monocytes #) system which generated this result tra nsmitted reference range : <=0.8. The reference r kat was not used to int erpret this result as normal/abnormal . [facility] HeightsYiwfoszSZUREJMYZK3592-23-36 10:58:00 Test Item Value Reference Range Interpretation Comments Lymphocytes # (test code = Lymphocytes 2.0 1.0-5.5 #) [facility] HeightsVnbzsbnXCNGBUXPZU3450-20-32 10:58:00 Test Item Value Reference Range Interpretation Comments Microcyte (test code = 1+ *ABN*(08/16/15 Microcyte) 4:58 AM) [facility] HeightsDimjuvvTIKUVEUFWF5123-71-57 10:58:00 Test Item Value Reference Range Interpretation Comments MPV (test code = MPV) 8.9 7.4-10.4 [facility] HeightsEfngbblFLGHCZHTOL1141-60-24 10:58:00 Test Item Value Reference Range Interpretation Comments MCV (test code = MCV) 77.3 80.0-98.0 [facility] HeightsBgkkeqbACDXFUVKGU0896-65-26 10:58:00 Test Item Value Reference Range Interpretation Comments Hgb (test code = Hgb) 11.9 12.0-16.0 [facility] HeightsJvnhjanUAPHMFPZBB4438-69-88 10:58:00 Test Item Value Reference Range Interpretation Comments Hct (test code = Hct) 37.5 36.0-48.0 [facility] HeightsSdrxacxVJIXJDTGCV4233-65-85 10:58:00 Test Item Value Reference Range Interpretation Comments MCH (test code = MCH) 24.5 pg 27.0-31.0 [facility] HeightsOiuefzaCYWDHLPBZL1604-18-77 10:58:00 Test Item Value Reference Range Interpretation Comments RBC (test code = RBC) 4.85 4.20-5.40 [facility] HeightsMykrejiYDCZIBPDDP6974-91-33 10:58:00 Test Item Value Reference Range Interpretation Comments WBC (test code = WBC) 10.9 3.7-10.4 [facility] HeightsFiaoqqgZIGRFBCSIT0197-68-79 10:58:00 Test Item Value Reference Range Interpretation Comments RDW (test code = RDW) 15.9 11.5-14.5 [facility] HeightsBekimxwZBSFRKLKFD7583-93-37 10:58:00 Test Item Value Reference Range Interpretation Comments MCHC (test code = MCHC) 31.7 32.0-36.0 [facility] HeightsYahovvmAFUUALLZIP5082-21-08 10:58:00 Test Item Value Reference Range Interpretation Comments Platelet (test code = Platelet) 242 133-450 [facility]2015-12-18 10:58:00 Test Item Value Reference Range Interpretation Comments eGFR (test code = eGFR) 126 [facility]2015-12-18 10:58:00 Test Item Value Reference Range Interpretation Comments AST (test code = AST) 29 See_Comment [Auto mated message] The system which ge nerated this result transmit arvind reference range : <=37. The reference range was not used to interpr et this result as mario l/abnormal. [facility]2015-12-18 10:58:00 Test Item Value Reference Range Interpretation Comments Alk Phos (test code = Alk Phos) 86 39-136 [facility]2015-12-18 10:58:00 Test Item Value Reference Range Interpretation Comments Bili Total (test code = Bili Total) 0.3 0.2-1.3 [facility]2015-12-18 10:58:00 Test Item Value Reference Range Interpretation Comments ALT (test code = ALT) 50 See_Comment [Auto mated message] The system which ge nerated this result transmit arvind reference range : <=65. The reference range was not used to interpr et this result as mario l/abnormal. [facility]2015-12-18 10:58:00 Test Item Value Reference Range Interpretation Comments Sodium Lvl (test code = Sodium Lvl) 136 135-145 [facility]2015-12-18 10:58:00 Test Item Value Reference Range Interpretation Comments Potassium Lvl (test code = Potassium 4.0 3.5-5.1 Lvl) [facility]2015-12-18 10:58:00 Test Item Value Reference Range Interpretation Comments Creatinine Lvl (test code = Creatinine 0.62 0.50-1.40 Lvl) [facility]2015-12-18 10:58:00 Test Item Value Reference Range Interpretation Comments Glucose Lvl (test code = Glucose Lvl) 101 70-99 [facility]2015-12-18 10:58:00 Test Item Value Reference Range Interpretation Comments BUN (test code = BUN) 5 7-22 [facility]2015-12-18 10:58:00 Test Item Value Reference Range Interpretation Comments Total Protein (test code = Total 5.8 6.4-8.4 Protein) [facility]2015-12-18 10:58:00 Test Item Value Reference Range Interpretation Comments Albumin Lvl (test code = Albumin Lvl) 3.2 3.5-5.0 [facility]2015-12-18 10:58:00 Test Item Value Reference Range Interpretation Comments Chloride Lvl (test code = Chloride Lvl) 100 95-109 [facility]2015-12-18 10:58:00 Test Item Value Reference Range Interpretation Comments Calcium Lvl (test code = Calcium Lvl) 8.6 8.5-10.5 [facility]2015-12-18 10:58:00 Test Item Value Reference Range Interpretation Comments CO2 (test code = CO2) 27 24-32 [facility]2015-12-18 10:58:00 Test Item Value Reference Range Interpretation Comments B/C Ratio (test code = B/C Ratio) 8 6-25 [place] 372445-12-18 10:58:00 Test Item Value Reference Range Interpretation Comments Globulin (test code = Globulin) 2.6 2.0-4.0 [facility]2015-12-18 10:58:00 Test Item Value Reference Range Interpretation Comments A/G Ratio (test code = A/G Ratio) 1.2 0.7-1.6 [facility]2015-12-18 10:58:00 Test Item Value Reference Range Interpretation Comments AGAP (test code = AGAP) 13.0 10.0-20.0 [facility] HeightsAdetpyfITJYPEJGRR3498-87-25 10:58:00 Test Item Value Reference Range Interpretation Comments Segs (test code = Segs) 74.2 45.0-75.0 [facility] HeightsGbigkxcZWJMSXKEDI6006-45-41 10:58:00 Test Item Value Reference Range Interpretation Comments Lymphocytes (test code = Lymphocytes) 18.3 20.0-40.0 [facility] HeightsGzjptrwPIDDAIVLGR3417-22-42 10:58:00 Test Item Value Reference Range Interpretation Comments Monocytes (test code = Monocytes) 7.0 2.0-12.0 [facility] HeightsHkbyjbpFMLSSSDGZN4766-89-79 10:58:00 Test Item Value Reference Range Interpretation Comments Basophils (test code = 0.3 See_Comment [Aut omated message] The Basophils) system which ge nerated this result tra nsmitted reference range : <=1.0. The reference r kat was not used to int erpret this result as normal/abnormal . [facility] HeightsOagokvgFPBFUCOVYC3761-80-63 10:58:00 Test Item Value Reference Range Interpretation Comments Segs-Bands # (test code = Segs-Bands #) 8.1 1.5-8.1 [facility] HeightsDpadradUZDPVPCMWO6935-47-92 10:58:00 Test Item Value Reference Range Interpretation Comments Eosinophils (test code = 0.2 See_Comment [A utomated message] The Eosinophils) system which ge nerated this result tra nsmitted reference range : <=4.0. The reference r kat was not used to int erpret this result as normal/abnormal . [facility] HeightsBafwlgxFMSFUPMOEM9695-58-06 10:58:00 Test Item Value Reference Range Interpretation Comments Monocytes # (test code 0.8 See_Comment [Aut omated message] The = Monocytes #) system which generated this result tra nsmitted reference range : <=0.8. The reference r kat was not used to int erpret this result as normal/abnormal . [facility] HeightsFckghdbQDMWRDNZWX3935-82-35 10:58:00 Test Item Value Reference Range Interpretation Comments Lymphocytes # (test code = Lymphocytes 2.0 1.0-5.5 #) [facility] HeightsLgaokhgKLOBXOHEFP4156-40-58 10:58:00 Test Item Value Reference Range Interpretation Comments Microcyte (test code = 1+ *ABN*(08/16/15 Microcyte) 4:58 AM) [facility] HeightsOeckretYAHDHOQWDO6385-23-00 10:58:00 Test Item Value Reference Range Interpretation Comments MPV (test code = MPV) 8.9 7.4-10.4 [facility] HeightsRmidpcfNGRASKVQVM8520-44-48 10:58:00 Test Item Value Reference Range Interpretation Comments MCV (test code = MCV) 77.3 80.0-98.0 [facility] HeightsDmltfzzTWMNRDKTWY8337-35-96 10:58:00 Test Item Value Reference Range Interpretation Comments Hgb (test code = Hgb) 11.9 12.0-16.0 [facility] HeightsBmqfrpwUDTGVVTWPM3465-29-21 10:58:00 Test Item Value Reference Range Interpretation Comments Hct (test code = Hct) 37.5 36.0-48.0 [facility] HeightsJabutccQKZJLHMWJG5287-04-11 10:58:00 Test Item Value Reference Range Interpretation Comments MCH (test code = MCH) 24.5 pg 27.0-31.0 [facility] HeightsWizguclTTAUUYFKTQ4191-06-05 10:58:00 Test Item Value Reference Range Interpretation Comments RBC (test code = RBC) 4.85 4.20-5.40 [facility] HeightsAjdfkapBLLMIMAOJS4119-79-39 10:58:00 Test Item Value Reference Range Interpretation Comments WBC (test code = WBC) 10.9 3.7-10.4 [facility] HeightsQatqwzrCZWAYNVOGJ2175-08-16 10:58:00 Test Item Value Reference Range Interpretation Comments RDW (test code = RDW) 15.9 11.5-14.5 [facility] HeightsEvtdactGDRNBZDKAO1936-30-23 10:58:00 Test Item Value Reference Range Interpretation Comments MCHC (test code = MCHC) 31.7 32.0-36.0 [facility] HeightsEnidipbNXCQICJGLF3407-72-55 10:58:00 Test Item Value Reference Range Interpretation Comments Platelet (test code = Platelet) 242 133-450 [facility]2015-12-18 10:58:00 Test Item Value Reference Range Interpretation Comments eGFR (test code = eGFR) 126 [facility]2015-12-18 10:58:00 Test Item Value Reference Range Interpretation Comments AST (test code = AST) 29 See_Comment [Auto mated message] The system which ge nerated this result transmit arvind reference range : <=37. The reference range was not used to interpr et this result as mario l/abnormal. [facility]2015-12-18 10:58:00 Test Item Value Reference Range Interpretation Comments Alk Phos (test code = Alk Phos) 86 39-136 [facility]2015-12-18 10:58:00 Test Item Value Reference Range Interpretation Comments Bili Total (test code = Bili Total) 0.3 0.2-1.3 [facility]2015-12-18 10:58:00 Test Item Value Reference Range Interpretation Comments ALT (test code = ALT) 50 See_Comment [Auto mated message] The system which ge nerated this result transmit arvind reference range : <=65. The reference range was not used to interpr et this result as mario l/abnormal. [facility]2015-12-18 10:58:00 Test Item Value Reference Range Interpretation Comments Sodium Lvl (test code = Sodium Lvl) 136 135-145 [facility]2015-12-18 10:58:00 Test Item Value Reference Range Interpretation Comments Potassium Lvl (test code = Potassium 4.0 3.5-5.1 Lvl) [facility]2015-12-18 10:58:00 Test Item Value Reference Range Interpretation Comments Creatinine Lvl (test code = Creatinine 0.62 0.50-1.40 Lvl) [facility]2015-12-18 10:58:00 Test Item Value Reference Range Interpretation Comments Glucose Lvl (test code = Glucose Lvl) 101 70-99 [facility]2015-12-18 10:58:00 Test Item Value Reference Range Interpretation Comments BUN (test code = BUN) 5 7-22 [facility]2015-12-18 10:58:00 Test Item Value Reference Range Interpretation Comments Total Protein (test code = Total 5.8 6.4-8.4 Protein) [facility]2015-12-18 10:58:00 Test Item Value Reference Range Interpretation Comments Albumin Lvl (test code = Albumin Lvl) 3.2 3.5-5.0 [facility]2015-12-18 10:58:00 Test Item Value Reference Range Interpretation Comments Chloride Lvl (test code = Chloride Lvl) 100 95-109 [facility]2015-12-18 10:58:00 Test Item Value Reference Range Interpretation Comments Calcium Lvl (test code = Calcium Lvl) 8.6 8.5-10.5 [facility]2015-12-18 10:58:00 Test Item Value Reference Range Interpretation Comments CO2 (test code = CO2) 27 24-32 [facility]2015-12-18 10:58:00 Test Item Value Reference Range Interpretation Comments B/C Ratio (test code = B/C Ratio) 8 6-25 [facility]2015-12-18 10:58:00 Test Item Value Reference Range Interpretation Comments Globulin (test code = Globulin) 2.6 2.0-4.0 [facility]2015-12-18 10:58:00 Test Item Value Reference Range Interpretation Comments A/G Ratio (test code = A/G Ratio) 1.2 0.7-1.6 [facility]2015-12-18 10:58:00 Test Item Value Reference Range Interpretation Comments AGAP (test code = AGAP) 13.0 10.0-20.0 [facility] HeightsWxpfudiSJISRIUGMV9518-66-96 10:58:00 Test Item Value Reference Range Interpretation Comments Segs (test code = Segs) 74.2 45.0-75.0 [facility] HeightsEnrmtjvHIKOXOHWIM0294-23-41 10:58:00 Test Item Value Reference Range Interpretation Comments Lymphocytes (test code = Lymphocytes) 18.3 20.0-40.0 [facility] HeightsWlsszveTBQZWCSBHS5902-69-30 10:58:00 Test Item Value Reference Range Interpretation Comments Monocytes (test code = Monocytes) 7.0 2.0-12.0 [facility] HeightsQrrwgclQIBGKYWGBE8749-11-18 10:58:00 Test Item Value Reference Range Interpretation Comments Basophils (test code = 0.3 See_Comment [Aut omated message] The Basophils) system which ge nerated this result tra nsmitted reference range : <=1.0. The reference r kat was not used to int erpret this result as normal/abnormal . [facility] HeightsHrvurtcXBYHKDYTQA2933-24-70 10:58:00 Test Item Value Reference Range Interpretation Comments Segs-Bands # (test code = Segs-Bands #) 8.1 1.5-8.1 [facility] HeightsMtbihgdQYVOXIOEQA8883-99-03 10:58:00 Test Item Value Reference Range Interpretation Comments Eosinophils (test code = 0.2 See_Comment [A utomated message] The Eosinophils) system which ge nerated this result tra nsmitted reference range : <=4.0. The reference r kat was not used to int erpret this result as normal/abnormal . [facility] HeightsIzrybigVAVEIQYBPK2463-14-80 10:58:00 Test Item Value Reference Range Interpretation Comments Monocytes # (test code 0.8 See_Comment [Aut omated message] The = Monocytes #) system which generated this result tra nsmitted reference range : <=0.8. The reference r kat was not used to int erpret this result as normal/abnormal . [facility] HeightsPkwreekUFSCBJJQDP8312-29-25 10:58:00 Test Item Value Reference Range Interpretation Comments Lymphocytes # (test code = Lymphocytes 2.0 1.0-5.5 #) [facility] HeightsRfvsyrbJGZYAOUUYV1707-59-59 10:58:00 Test Item Value Reference Range Interpretation Comments Microcyte (test code = 1+ *ABN*(08/16/15 Microcyte) 4:58 AM) [facility] HeightsYogjqqzILEVENWQYC6067-25-31 10:58:00 Test Item Value Reference Range Interpretation Comments MPV (test code = MPV) 8.9 7.4-10.4 [facility] HeightsUiynprzJTLKDYSZUL5282-68-43 10:58:00 Test Item Value Reference Range Interpretation Comments MCV (test code = MCV) 77.3 80.0-98.0 [facility] HeightsEairsirEBLUGMTBUW5363-95-72 10:58:00 Test Item Value Reference Range Interpretation Comments Hgb (test code = Hgb) 11.9 12.0-16.0 [facility] HeightsZaojrkrZFIKUFFKVL9428-95-34 10:58:00 Test Item Value Reference Range Interpretation Comments Hct (test code = Hct) 37.5 36.0-48.0 [facility] HeightsNmjxndyOWQQVPLLXM1796-90-13 10:58:00 Test Item Value Reference Range Interpretation Comments MCH (test code = MCH) 24.5 pg 27.0-31.0 [facility] HeightsZcheqeeSZYFVDUQSQ7175-91-83 10:58:00 Test Item Value Reference Range Interpretation Comments RBC (test code = RBC) 4.85 4.20-5.40 [facility] HeightsJaylktfZAJRZNEUQV5941-24-65 10:58:00 Test Item Value Reference Range Interpretation Comments WBC (test code = WBC) 10.9 3.7[facility]10.4 [facility] HeightsDjfpjytDAPJCKOLTA2276-29-49 10:58:00 Test Item Value Reference Range Interpretation Comments RDW (test code = RDW) 15.9 11.5-14.5 [facility] HeightsZctziojNIQTXJKPDJ2099-08-66 10:58:00 Test Item Value Reference Range Interpretation Comments MCHC (test code = MCHC) 31.7 32.0-36.0 [facility] HeightsEcfwewbLHFDCRGVKQ4061-23-06 10:58:00 Test Item Value Reference Range Interpretation Comments Platelet (test code = Platelet) 242 133-450 [facility]2015-12-18 10:58:00 Test Item Value Reference Range Interpretation Comments eGFR (test code = eGFR) 126 [facility]2015-12-18 10:58:00 Test Item Value Reference Range Interpretation Comments AST (test code = AST) 29 See_Comment [Auto mated message] The system which ge nerated this result transmit arvind reference range : <=37. The reference range was not used to interpr et this result as mario l/abnormal. [facility]2015-12-18 10:58:00 Test Item Value Reference Range Interpretation Comments Alk Phos (test code = Alk Phos) 86 39-136 [facility]2015-12-18 10:58:00 Test Item Value Reference Range Interpretation Comments Bili Total (test code = Bili Total) 0.3 0.2-1.3 [facility]2015-12-18 10:58:00 Test Item Value Reference Range Interpretation Comments ALT (test code = ALT) 50 See_Comment [Auto mated message] The system which ge nerated this result transmit arvind reference range : <=65. The reference range was not used to interpr et this result as mario l/abnormal. [facility]2015-12-18 10:58:00 Test Item Value Reference Range Interpretation Comments Sodium Lvl (test code = Sodium Lvl) 136 135-145 [facility]2015-12-18 10:58:00 Test Item Value Reference Range Interpretation Comments Potassium Lvl (test code = Potassium 4.0 3.5-5.1 Lvl) [facility]2015-12-18 10:58:00 Test Item Value Reference Range Interpretation Comments Creatinine Lvl (test code = Creatinine 0.62 0.50-1.40 Lvl) [facility]2015-12-18 10:58:00 Test Item Value Reference Range Interpretation Comments Glucose Lvl (test code = Glucose Lvl) 101 70-99 [facility]2015-12-18 10:58:00 Test Item Value Reference Range Interpretation Comments BUN (test code = BUN) 5 7-22 [facility]2015-12-18 10:58:00 Test Item Value Reference Range Interpretation Comments Total Protein (test code = Total 5.8 6.4-8.4 Protein) [facility]2015-12-18 10:58:00 Test Item Value Reference Range Interpretation Comments Albumin Lvl (test code = Albumin Lvl) 3.2 3.5-5.0 [facility]2015-12-18 10:58:00 Test Item Value Reference Range Interpretation Comments Chloride Lvl (test code = Chloride Lvl) 100 95-109 [facility]2015-12-18 10:58:00 Test Item Value Reference Range Interpretation Comments Calcium Lvl (test code = Calcium Lvl) 8.6 8.5-10.5 [facility]2015-12-18 10:58:00 Test Item Value Reference Range Interpretation Comments CO2 (test code = CO2) 27 24-32 [facility]2015-12-18 10:58:00 Test Item Value Reference Range Interpretation Comments B/C Ratio (test code = B/C Ratio) 8 6-25 [facility]2015-12-18 10:58:00 Test Item Value Reference Range Interpretation Comments Globulin (test code = Globulin) 2.6 2.0-4.0 [facility]2015-12-18 10:58:00 Test Item Value Reference Range Interpretation Comments A/G Ratio (test code = A/G Ratio) 1.2 0.7-1.6 [facility]2015-12-18 10:58:00 Test Item Value Reference Range Interpretation Comments AGAP (test code = AGAP) 13.0 10.0-20.0 [facility] HeightsYudxzgrJSTRNJYKZY0576-06-13 10:58:00 Test Item Value Reference Range Interpretation Comments Segs (test code = Segs) 74.2 45.0-75.0 [facility] HeightsFbuanedQVUWGOWVCK7468-71-84 10:58:00 Test Item Value Reference Range Interpretation Comments Lymphocytes (test code = Lymphocytes) 18.3 20.0-40.0 [facility] HeightsEqkacojNNJNWHIYHX4807-37-73 10:58:00 Test Item Value Reference Range Interpretation Comments Monocytes (test code = Monocytes) 7.0 2.0-12.0 [facility] HeightsTtbhilfDKLBIIRVFJ0956-84-90 10:58:00 Test Item Value Reference Range Interpretation Comments Basophils (test code = 0.3 See_Comment [Aut omated message] The Basophils) system which ge nerated this result tra nsmitted reference range : <=1.0. The reference r kat was not used to int erpret this result as normal/abnormal . [facility] HeightsOffldaaROBJRXCCEY8450-24-31 10:58:00 Test Item Value Reference Range Interpretation Comments Segs-Bands # (test code = Segs-Bands #) 8.1 1.5-8.1 [facility] HeightsDjxxorrGOXNNNBQDP7762-84-77 10:58:00 Test Item Value Reference Range Interpretation Comments Eosinophils (test code = 0.2 See_Comment [A utomated message] The Eosinophils) system which ge nerated this result tra nsmitted reference range : <=4.0. The reference r kat was not used to int erpret this result as normal/abnormal . [facility] HeightsBlmimoaLXYACXMZTZ9177-33-30 10:58:00 Test Item Value Reference Range Interpretation Comments Monocytes # (test code 0.8 See_Comment [Aut omated message] The = Monocytes #) system which generated this result tra nsmitted reference range : <=0.8. The reference r kat was not used to int erpret this result as normal/abnormal . [facility] HeightsClehorhZIPQHFPHOZ7639-23-12 10:58:00 Test Item Value Reference Range Interpretation Comments Lymphocytes # (test code = Lymphocytes 2.0 1.0-5.5 #) [facility] HeightsQuseyttTJLZOIWFXL2319-46-52 10:58:00 Test Item Value Reference Range Interpretation Comments Microcyte (test code = 1+ *ABN*(08/16/15 Microcyte) 4:58 AM) [facility] HeightsOwrmwbiEPBTLPBEDF5677-37-46 10:58:00 Test Item Value Reference Range Interpretation Comments MPV (test code = MPV) 8.9 7.4-10.4 [facility] HeightsPeemwwtGFZLWJDPSJ3757-29-11 10:58:00 Test Item Value Reference Range Interpretation Comments MCV (test code = MCV) 77.3 80.0-98.0 [facility] HeightsYmggbfvMYILCMJYWQ7132-03-90 10:58:00 Test Item Value Reference Range Interpretation Comments Hgb (test code = Hgb) 11.9 12.0-16.0 [facility] HeightsLzgvkafUGTVMVXFMA6275-31-94 10:58:00 Test Item Value Reference Range Interpretation Comments Hct (test code = Hct) 37.5 36.0-48.0 [facility] HeightsCwnkvrdPBZZDZSNZX3701-83-38 10:58:00 Test Item Value Reference Range Interpretation Comments MCH (test code = MCH) 24.5 pg 27.0-31.0 [facility] HeightsKftghxvJMQIHOUETA3531-84-44 10:58:00 Test Item Value Reference Range Interpretation Comments RBC (test code = RBC) 4.85 4.20-5.40 [facility] HeightsWktjevkKDOYAHIVNT4357-36-55 10:58:00 Test Item Value Reference Range Interpretation Comments WBC (test code = WBC) 10.9 3.7-10.4 [facility] HeightsUaqjyjsPWUJXXOXSC1362-45-54 10:58:00 Test Item Value Reference Range Interpretation Comments RDW (test code = RDW) 15.9 11.5-14.5 [facility] HeightsOaenmleNPIRPGHVEE9325-56-53 10:58:00 Test Item Value Reference Range Interpretation Comments MCHC (test code = MCHC) 31.7 32.0-36.0 [facility] HeightsXfkvfxxMXQRIFHECN3029-54-86 10:58:00 Test Item Value Reference Range Interpretation Comments Platelet (test code = Platelet) 242 133-450 [facility]2015-12-18 10:58:00 Test Item Value Reference Range Interpretation Comments eGFR (test code = eGFR) 126 [facility]2015-12-18 10:58:00 Test Item Value Reference Range Interpretation Comments AST (test code = AST) 29 See_Comment [Auto mated message] The system which ge nerated this result transmit arvind reference range : <=37. The reference range was not used to interpr et this result as mario l/abnormal. [facility]2015-12-18 10:58:00 Test Item Value Reference Range Interpretation Comments Alk Phos (test code = Alk Phos) 86 39-136 [facility]2015-12-18 10:58:00 Test Item Value Reference Range Interpretation Comments Bili Total (test code = Bili Total) 0.3 0.2-1.3 [facility]2015-12-18 10:58:00 Test Item Value Reference Range Interpretation Comments ALT (test code = ALT) 50 See_Comment [Auto mated message] The system which ge nerated this result transmit arvind reference range : <=65. The reference range was not used to interpr et this result as mario l/abnormal. [facility]2015-12-18 10:58:00 Test Item Value Reference Range Interpretation Comments Sodium Lvl (test code = Sodium Lvl) 136 135-145 [facility]2015-12-18 10:58:00 Test Item Value Reference Range Interpretation Comments Potassium Lvl (test code = Potassium 4.0 3.5-5.1 Lvl) [facility]2015-12-18 10:58:00 Test Item Value Reference Range Interpretation Comments Creatinine Lvl (test code = Creatinine 0.62 0.50-1.40 Lvl) [facility]2015-12-18 10:58:00 Test Item Value Reference Range Interpretation Comments Glucose Lvl (test code = Glucose Lvl) 101 70-99 [facility]2015-12-18 10:58:00 Test Item Value Reference Range Interpretation Comments BUN (test code = BUN) 5 7-22 [facility]2015-12-18 10:58:00 Test Item Value Reference Range Interpretation Comments Total Protein (test code = Total 5.8 6.4-8.4 Protein) [facility]2015-12-18 10:58:00 Test Item Value Reference Range Interpretation Comments Albumin Lvl (test code = Albumin Lvl) 3.2 3.5-5.0 [facility]2015-12-18 10:58:00 Test Item Value Reference Range Interpretation Comments Chloride Lvl (test code = Chloride Lvl) 100 95-109 [facility]2015-12-18 10:58:00 Test Item Value Reference Range Interpretation Comments Calcium Lvl (test code = Calcium Lvl) 8.6 8.5-10.5 [facility]2015-12-18 10:58:00 Test Item Value Reference Range Interpretation Comments CO2 (test code = CO2) 27 24-32 [facility]2015-12-18 10:58:00 Test Item Value Reference Range Interpretation Comments B/C Ratio (test code = B/C Ratio) 8 6-25 [facility]2015-12-18 10:58:00 Test Item Value Reference Range Interpretation Comments Globulin (test code = Globulin) 2.6 2.0-4.0 [facility]2015-12-18 10:58:00 Test Item Value Reference Range Interpretation Comments A/G Ratio (test code = A/G Ratio) 1.2 0.7-1.6 [facility]2015-12-18 10:58:00 Test Item Value Reference Range Interpretation Comments AGAP (test code = AGAP) 13.0 10.0-20.0 [facility] HeightsBsbsyvzLYLPPHZZWF2773-65-88 10:58:00 Test Item Value Reference Range Interpretation Comments Segs (test code = Segs) 74.2 45.0-75.0 [facility] HeightsNmflclsBQARQIOMVU5380-45-56 10:58:00 Test Item Value Reference Range Interpretation Comments Lymphocytes (test code = Lymphocytes) 18.3 20.0-40.0 [facility] HeightsUgdkvvpFAORDZZFHK8043-20-38 10:58:00 Test Item Value Reference Range Interpretation Comments Monocytes (test code = Monocytes) 7.0 2.0-12.0 [facility]2015-12-18 10:58:00 Test Item Value Reference Range Interpretation Comments eGFR (test code = eGFR) 126 [facility] HeightsMaetjfnVNJIDLNNTC3915-05-20 10:58:00 Test Item Value Reference Range Interpretation Comments Basophils (test code = 0.3 See_Comment [Aut omated message] The Basophils) system which ge nerated this result tra nsmitted reference range : <=1.0. The reference r kat was not used to int erpret this result as normal/abnormal . [facility] HeightsEktycecTQTDPDURPG9642-43-92 10:58:00 Test Item Value Reference Range Interpretation Comments Segs-Bands # (test code = Segs-Bands #) 8.1 1.5-8.1 [facility] HeightsVkupmzxLLNHOCGVSA1787-93-59 10:58:00 Test Item Value Reference Range Interpretation Comments Eosinophils (test code = 0.2 See_Comment [A utomated message] The Eosinophils) system which ge nerated this result tra nsmitted reference range : <=4.0. The reference r kat was not used to int erpret this result as normal/abnormal . [facility] HeightsCkvfezgBKDXUQRMBJ3481-81-61 10:58:00 Test Item Value Reference Range Interpretation Comments Monocytes # (test code 0.8 See_Comment [Aut omated message] The = Monocytes #) system which generated this result tra nsmitted reference range : <=0.8. The reference r kat was not used to int erpret this result as normal/abnormal . [facility] HeightsSsyuybrDFFJCOIJLN2520-33-02 10:58:00 Test Item Value Reference Range Interpretation Comments Lymphocytes # (test code = Lymphocytes 2.0 1.0-5.5 #) [facility] HeightsGrhrritCUNENWEUQA7920-54-70 10:58:00 Test Item Value Reference Range Interpretation Comments Microcyte (test code = 1+ *ABN*(08/16/15 Microcyte) 4:58 AM) [facility] HeightsPuefjgxPFXDIILBOM2150-20-79 10:58:00 Test Item Value Reference Range Interpretation Comments MPV (test code = MPV) 8.9 7.4-10.4 [facility] HeightsPfpxacqBIJAMXNMRY2357-29-01 10:58:00 Test Item Value Reference Range Interpretation Comments MCV (test code = MCV) 77.3 80.0-98.0 [facility] HeightsWejnshvEWAUDTJRJU3332-39-02 10:58:00 Test Item Value Reference Range Interpretation Comments Hgb (test code = Hgb) 11.9 12.0-16.0 [facility] HeightsZzvzijhWRFJFKUZUM9159-18-46 10:58:00 Test Item Value Reference Range Interpretation Comments Hct (test code = Hct) 37.5 36.0-48.0 [facility]2015-12-18 10:58:00 Test Item Value Reference Range Interpretation Comments AST (test code = AST) 29 See_Comment [Auto mated message] The system which ge nerated this result transmit arvind reference range : <=37. The reference range was not used to interpr et this result as mario l/abnormal. [facility] HeightsNeyhrxoROCFVBJQPS1389-34-07 10:58:00 Test Item Value Reference Range Interpretation Comments MCH (test code = MCH) 24.5 pg 27.0-31.0 [facility] HeightsHpukgfxABDYKRROXP8298-62-76 10:58:00 Test Item Value Reference Range Interpretation Comments RBC (test code = RBC) 4.85 4.20-5.40 [facility] HeightsBnbxeexDGWEJYTDRP7055-17-06 10:58:00 Test Item Value Reference Range Interpretation Comments WBC (test code = WBC) 10.9 3.7-10.4 [facility] HeightsSosfcnxXBUNJNAEBM7664-79-50 10:58:00 Test Item Value Reference Range Interpretation Comments RDW (test code = RDW) 15.9 11.5-14.5 [facility] HeightsFjxgsxcTWTWVSPWQL5980-82-81 10:58:00 Test Item Value Reference Range Interpretation Comments MCHC (test code = MCHC) 31.7 32.0-36.0 [facility] HeightsNhripbhCCZNEWALQE8434-07-60 10:58:00 Test Item Value Reference Range Interpretation Comments Platelet (test code = Platelet) 242 133-450 [facility]2015-12-18 10:58:00 Test Item Value Reference Range Interpretation Comments Alk Phos (test code = Alk Phos) 86 39-136 [facility]2015-12-18 10:58:00 Test Item Value Reference Range Interpretation Comments Bili Total (test code = Bili Total) 0.3 0.2-1.3 [facility]2015-12-18 10:58:00 Test Item Value Reference Range Interpretation Comments ALT (test code = ALT) 50 See_Comment [Auto mated message] The system which ge nerated this result transmit arvind reference range : <=65. The reference range was not used to interpr et this result as mario l/abnormal. [facility]2015-12-18 10:58:00 Test Item Value Reference Range Interpretation Comments Sodium Lvl (test code = Sodium Lvl) 136 135-145 [facility]2015-12-18 10:58:00 Test Item Value Reference Range Interpretation Comments Potassium Lvl (test code = Potassium 4.0 3.5-5.1 Lvl) [facility]2015-12-18 10:58:00 Test Item Value Reference Range Interpretation Comments Creatinine Lvl (test code = Creatinine 0.62 0.50-1.40 Lvl) [facility]2015-12-18 10:58:00 Test Item Value Reference Range Interpretation Comments Glucose Lvl (test code = Glucose Lvl) 101 70-99 [facility]2015-12-18 10:58:00 Test Item Value Reference Range Interpretation Comments BUN (test code = BUN) 5 7-22 [facility]2015-12-18 10:58:00 Test Item Value Reference Range Interpretation Comments Total Protein (test code = Total 5.8 6.4-8.4 Protein) [facility]2015-12-18 10:58:00 Test Item Value Reference Range Interpretation Comments Albumin Lvl (test code = Albumin Lvl) 3.2 3.5-5.0 [facility]2015-12-18 10:58:00 Test Item Value Reference Range Interpretation Comments Chloride Lvl (test code = Chloride Lvl) 100 95-109 [facility]2015-12-18 10:58:00 Test Item Value Reference Range Interpretation Comments Calcium Lvl (test code = Calcium Lvl) 8.6 8.5-10.5 [facility]2015-12-18 10:58:00 Test Item Value Reference Range Interpretation Comments CO2 (test code = CO2) 27 24-32 [facility]2015-12-18 10:58:00 Test Item Value Reference Range Interpretation Comments B/C Ratio (test code = B/C Ratio) 8 6-25 [facility]2015-12-18 10:58:00 Test Item Value Reference Range Interpretation Comments Globulin (test code = Globulin) 2.6 2.0-4.0 [facility]2015-12-18 10:58:00 Test Item Value Reference Range Interpretation Comments A/G Ratio (test code = A/G Ratio) 1.2 0.7-1.6 [facility]2015-12-18 10:58:00 Test Item Value Reference Range Interpretation Comments AGAP (test code = AGAP) 13.0 10.0-20.0 [facility] HeightsKtpybwtPTYWHLDMSN5191-75-24 10:58:00 Test Item Value Reference Range Interpretation Comments Segs (test code = Segs) 74.2 45.0-75.0 [facility] HeightsDuhdjxoTZQUYPJSZU6055-32-24 10:58:00 Test Item Value Reference Range Interpretation Comments Lymphocytes (test code = Lymphocytes) 18.3 20.0-40.0 [facility] HeightsWldunuzFZAFUCUDXY8629-20-23 10:58:00 Test Item Value Reference Range Interpretation Comments Monocytes (test code = Monocytes) 7.0 2.0-12.0 [facility] HeightsUioinmjFPCCSDTJJW3223-30-79 10:58:00 Test Item Value Reference Range Interpretation Comments Basophils (test code = 0.3 See_Comment [Aut omated message] The Basophils) system which ge nerated this result tra nsmitted reference range : <=1.0. The reference r kat was not used to int erpret this result as normal/abnormal . [facility] HeightsFxgtequPRFUNWGEJD5284-63-10 10:58:00 Test Item Value Reference Range Interpretation Comments Segs-Bands # (test code = Segs-Bands #) 8.1 1.5-8.1 [facility] HeightsQagdcgxGXRKFZQKQT4897-31-63 10:58:00 Test Item Value Reference Range Interpretation Comments Eosinophils (test code = 0.2 See_Comment [A utomated message] The Eosinophils) system which ge nerated this result tra nsmitted reference range : <=4.0. The reference r kat was not used to int erpret this result as normal/abnormal . [facility] HeightsHksielqHEUYNTJNRA6284-21-94 10:58:00 Test Item Value Reference Range Interpretation Comments Monocytes # (test code 0.8 See_Comment [Aut omated message] The = Monocytes #) system which generated this result tra nsmitted reference range : <=0.8. The reference r kat was not used to int erpret this result as normal/abnormal . [facility] HeightsDebsbddRANAIJOYSS6360-42-41 10:58:00 Test Item Value Reference Range Interpretation Comments Lymphocytes # (test code = Lymphocytes 2.0 1.0-5.5 #) [facility] HeightsZolhihgJORDXVPKHQ2665-88-04 10:58:00 Test Item Value Reference Range Interpretation Comments Microcyte (test code = 1+ *ABN*(08/16/15 Microcyte) 4:58 AM) [facility] HeightsLurvsusIIJCCHSNMB1685-25-71 10:58:00 Test Item Value Reference Range Interpretation Comments MPV (test code = MPV) 8.9 7.4-10.4 [facility] HeightsEfhpenzSAFBKLQHMC8609-90-67 10:58:00 Test Item Value Reference Range Interpretation Comments MCV (test code = MCV) 77.3 80.0-98.0 [facility] HeightsAzxpbnjQOVNYPSNQS5476-76-98 10:58:00 Test Item Value Reference Range Interpretation Comments Hgb (test code = Hgb) 11.9 12.0-16.0 [facility] HeightsAxcyhbuXFGCJLRQPC2885-58-92 10:58:00 Test Item Value Reference Range Interpretation Comments Hct (test code = Hct) 37.5 36.0-48.0 [facility] HeightsCakmrcjFGIUSHCQDA8194-30-10 10:58:00 Test Item Value Reference Range Interpretation Comments MCH (test code = MCH) 24.5 pg 27.0-31.0 [facility] HeightsUbutkypUOSTZGZLHO7268-22-49 10:58:00 Test Item Value Reference Range Interpretation Comments RBC (test code = RBC) 4.85 4.20-5.40 [facility] HeightsBymogifAAEXSLHTZL8378-97-60 10:58:00 Test Item Value Reference Range Interpretation Comments WBC (test code = WBC) 10.9 3.7-10.4 [facility] HeightsSgjjlinCCBCLHDZBT7419-07-24 10:58:00 Test Item Value Reference Range Interpretation Comments RDW (test code = RDW) 15.9 11.5-14.5 [facility] HeightsMkuhsvnYLPTFWVPMX5352-31-50 10:58:00 Test Item Value Reference Range Interpretation Comments MCHC (test code = MCHC) 31.7 32.0-36.0 [facility] HeightsSqfoprtUBGXVICFTR1140-66-85 10:58:00 Test Item Value Reference Range Interpretation Comments Platelet (test code = Platelet) 242 133-450 [facility]2015-12-18 10:58:00 Test Item Value Reference Range Interpretation Comments eGFR (test code = eGFR) 126 [facility]2015-12-18 10:58:00 Test Item Value Reference Range Interpretation Comments AST (test code = AST) 29 See_Comment [Auto mated message] The system which ge nerated this result transmit arvind reference range : <=37. The reference range was not used to interpr et this result as mario l/abnormal. [facility]2015-12-18 10:58:00 Test Item Value Reference Range Interpretation Comments Alk Phos (test code = Alk Phos) 86 39-136 [facility]2015-12-18 10:58:00 Test Item Value Reference Range Interpretation Comments Bili Total (test code = Bili Total) 0.3 0.2-1.3 [facility]2015-12-18 10:58:00 Test Item Value Reference Range Interpretation Comments ALT (test code = ALT) 50 See_Comment [Auto mated message] The system which ge nerated this result transmit arvind reference range : <=65. The reference range was not used to interpr et this result as mario l/abnormal. [facility]2015-12-18 10:58:00 Test Item Value Reference Range Interpretation Comments Sodium Lvl (test code = Sodium Lvl) 136 135-145 [facility]2015-12-18 10:58:00 Test Item Value Reference Range Interpretation Comments Potassium Lvl (test code = Potassium 4.0 3.5-5.1 Lvl) [facility]2015-12-18 10:58:00 Test Item Value Reference Range Interpretation Comments Creatinine Lvl (test code = Creatinine 0.62 0.50-1.40 Lvl) [facility]2015-12-18 10:58:00 Test Item Value Reference Range Interpretation Comments Glucose Lvl (test code = Glucose Lvl) 101 70-99 [facility]2015-12-18 10:58:00 Test Item Value Reference Range Interpretation Comments BUN (test code = BUN) 5 7-22 [facility]2015-12-18 10:58:00 Test Item Value Reference Range Interpretation Comments Total Protein (test code = Total 5.8 6.4-8.4 Protein) [facility]2015-12-18 10:58:00 Test Item Value Reference Range Interpretation Comments Albumin Lvl (test code = Albumin Lvl) 3.2 3.5-5.0 [facility]2015-12-18 10:58:00 Test Item Value Reference Range Interpretation Comments Chloride Lvl (test code = Chloride Lvl) 100 95-109 [facility]2015-12-18 10:58:00 Test Item Value Reference Range Interpretation Comments Calcium Lvl (test code = Calcium Lvl) 8.6 8.5-10.5 [facility]2015-12-18 10:58:00 Test Item Value Reference Range Interpretation Comments CO2 (test code = CO2) 27 24-32 [facility]2015-12-18 10:58:00 Test Item Value Reference Range Interpretation Comments B/C Ratio (test code = B/C Ratio) 8 6-25 [facility]2015-12-18 10:58:00 Test Item Value Reference Range Interpretation Comments Globulin (test code = Globulin) 2.6 2.0-4.0 [facility]2015-12-18 10:58:00 Test Item Value Reference Range Interpretation Comments A/G Ratio (test code = A/G Ratio) 1.2 0.7-1.6 [facility]2015-12-18 10:58:00 Test Item Value Reference Range Interpretation Comments AGAP (test code = AGAP) 13.0 10.0-20.0 [facility]BgmhcsxCZLKKBIGYB1551-61-75 10:58:00 Test Item Value Reference Range Interpretation Comments Segs (test code = Segs) 74.2 45.0-75.0 [facility] HeightsIebavunWGRAKTHSLM9058-36-98 10:58:00 Test Item Value Reference Range Interpretation Comments Lymphocytes (test code = Lymphocytes) 18.3 20.0-40.0 [facility] HeightsLjevtwzGMWTKOXHCI0414-77-27 10:58:00 Test Item Value Reference Range Interpretation Comments Monocytes (test code = Monocytes) 7.0 2.0-12.0 [facility] HeightsFibtczcCREBASHLBX3215-19-07 10:58:00 Test Item Value Reference Range Interpretation Comments Basophils (test code = 0.3 See_Comment [Aut omated message] The Basophils) system which ge nerated this result tra nsmitted reference range : <=1.0. The reference r kat was not used to int erpret this result as normal/abnormal . [facility] HeightsHxzmprlXMMOOVPEIV8213-04-85 10:58:00 Test Item Value Reference Range Interpretation Comments Segs-Bands # (test code = Segs-Bands #) 8.1 1.5-8.1 [facility] HeightsCudkpulBAFUOIXZDD4025-05-55 10:58:00 Test Item Value Reference Range Interpretation Comments Eosinophils (test code = 0.2 See_Comment [A utomated message] The Eosinophils) system which ge nerated this result tra nsmitted reference range : <=4.0. The reference r kat was not used to int erpret this result as normal/abnormal . [facility] HeightsHchtdzaMLHYIAEEZV6922-90-48 10:58:00 Test Item Value Reference Range Interpretation Comments Monocytes # (test code 0.8 See_Comment [Aut omated message] The = Monocytes #) system which generated this result tra nsmitted reference range : <=0.8. The reference r kat was not used to int erpret this result as normal/abnormal . [facility] HeightsBeasincAZIDBROMYE6430-44-28 10:58:00 Test Item Value Reference Range Interpretation Comments Lymphocytes # (test code = Lymphocytes 2.0 1.0-5.5 #) [facility] HeightsSzsajggSJEAJLFNGJ7470-01-48 10:58:00 Test Item Value Reference Range Interpretation Comments Microcyte (test code = 1+ *ABN*(08/16/15 Microcyte) 4:58 AM) [facility] HeightsRlpphhiTCLGAPJCCF2447-24-04 10:58:00 Test Item Value Reference Range Interpretation Comments MPV (test code = MPV) 8.9 7.4-10.4 [facility] HeightsWrhlmcxPPOUOSZORN8279-85-07 10:58:00 Test Item Value Reference Range Interpretation Comments MCV (test code = MCV) 77.3 80.0-98.0 [facility] HeightsLwnemgqTDIEKKVNUG2990-05-59 10:58:00 Test Item Value Reference Range Interpretation Comments Hgb (test code = Hgb) 11.9 12.0-16.0 [facility] HeightsQoogzkpBANXLSRQIF0087-16-61 10:58:00 Test Item Value Reference Range Interpretation Comments Hct (test code = Hct) 37.5 36.0-48.0 [facility] HeightsEtvwvrbFCTYMNEVVP9459-55-33 10:58:00 Test Item Value Reference Range Interpretation Comments MCH (test code = MCH) 24.5 pg 27.0-31.0 [facility] HeightsYhbbquzLLSMZBBUWQ2248-43-33 10:58:00 Test Item Value Reference Range Interpretation Comments RBC (test code = RBC) 4.85 4.20-5.40 [facility] HeightsRoixkyzRDTUQOZCSX9076-16-87 10:58:00 Test Item Value Reference Range Interpretation Comments WBC (test code = WBC) 10.9 3.7-10.4 [facility] HeightsYqsauksZKWMNFIHMZ3119-82-54 10:58:00 Test Item Value Reference Range Interpretation Comments RDW (test code = RDW) 15.9 11.5-14.5 [facility] HeightsNkypvvfYQBTSOXSQU2300-04-23 10:58:00 Test Item Value Reference Range Interpretation Comments MCHC (test code = MCHC) 31.7 32.0-36.0 [facility] HeightsItquelqLINDIOPXTB8221-14-20 10:58:00 Test Item Value Reference Range Interpretation Comments Platelet (test code = Platelet) 242 133-450 [facility]2015-12-18 10:58:00 Test Item Value Reference Range Interpretation Comments eGFR (test code = eGFR) 126 [facility]2015-12-18 10:58:00 Test Item Value Reference Range Interpretation Comments AST (test code = AST) 29 See_Comment [Auto mated message] The system which ge nerated this result transmit arvind reference range : <=37. The reference range was not used to interpr et this result as mario l/abnormal. [facility]2015-12-18 10:58:00 Test Item Value Reference Range Interpretation Comments Alk Phos (test code = Alk Phos) 86 39-136 [facility]2015-12-18 10:58:00 Test Item Value Reference Range Interpretation Comments Bili Total (test code = Bili Total) 0.3 0.2-1.3 [facility]2015-12-18 10:58:00 Test Item Value Reference Range Interpretation Comments ALT (test code = ALT) 50 See_Comment [Auto mated message] The system which ge nerated this result transmit arvind reference range : <=65. The reference range was not used to interpr et this result as mario l/abnormal. [facility]2015-12-18 10:58:00 Test Item Value Reference Range Interpretation Comments Sodium Lvl (test code = Sodium Lvl) 136 135-145 [facility]2015-12-18 10:58:00 Test Item Value Reference Range Interpretation Comments Potassium Lvl (test code = Potassium 4.0 3.5-5.1 Lvl) [facility]2015-12-18 10:58:00 Test Item Value Reference Range Interpretation Comments Creatinine Lvl (test code = Creatinine 0.62 0.50-1.40 Lvl) [facility]2015-12-18 10:58:00 Test Item Value Reference Range Interpretation Comments Glucose Lvl (test code = Glucose Lvl) 101 70-99 [facility]2015-12-18 10:58:00 Test Item Value Reference Range Interpretation Comments BUN (test code = BUN) 5 7-22 [facility]2015-12-18 10:58:00 Test Item Value Reference Range Interpretation Comments Total Protein (test code = Total 5.8 6.4-8.4 Protein) [facility]2015-12-18 10:58:00 Test Item Value Reference Range Interpretation Comments Albumin Lvl (test code = Albumin Lvl) 3.2 3.5-5.0 [facility]2015-12-18 10:58:00 Test Item Value Reference Range Interpretation Comments Chloride Lvl (test code = Chloride Lvl) 100 95-109 [facility]2015-12-18 10:58:00 Test Item Value Reference Range Interpretation Comments Calcium Lvl (test code = Calcium Lvl) 8.6 8.5-10.5 [facility]2015-12-18 10:58:00 Test Item Value Reference Range Interpretation Comments CO2 (test code = CO2) 27 24-32 [facility]2015-12-18 10:58:00 Test Item Value Reference Range Interpretation Comments B/C Ratio (test code = B/C Ratio) 8 6-25 [facility]2015-12-18 10:58:00 Test Item Value Reference Range Interpretation Comments Globulin (test code = Globulin) 2.6 2.0-4.0 [facility]2015-12-18 10:58:00 Test Item Value Reference Range Interpretation Comments A/G Ratio (test code = A/G Ratio) 1.2 0.7-1.6 [facility]2015-12-18 10:58:00 Test Item Value Reference Range Interpretation Comments AGAP (test code = AGAP) 13.0 10.0-20.0 [facility] HeightsKnbqsofJCFJOLVVSE9868-95-33 10:58:00 Test Item Value Reference Range Interpretation Comments Segs (test code = Segs) 74.2 45.0-75.0 [facility] HeightsAqvzmyfBERHZSCZEX2386-93-54 10:58:00 Test Item Value Reference Range Interpretation Comments Lymphocytes (test code = Lymphocytes) 18.3 20.0-40.0 [facility] HeightsXxmvrylLEAYTFBPWZ8259-89-02 10:58:00 Test Item Value Reference Range Interpretation Comments Monocytes (test code = Monocytes) 7.0 2.0-12.0 [facility] HeightsCnaeurzCSBCDENAMV4866-67-11 10:58:00 Test Item Value Reference Range Interpretation Comments Basophils (test code = 0.3 See_Comment [Aut omated message] The Basophils) system which ge nerated this result tra nsmitted reference range : <=1.0. The reference r kat was not used to int erpret this result as normal/abnormal . [facility] HeightsByzuunoDUYPIBHYBG4052-42-29 10:58:00 Test Item Value Reference Range Interpretation Comments Segs-Bands # (test code = Segs-Bands #) 8.1 1.5-8.1 [facility] HeightsWsuzjglTGJRPUMZSU7907-87-19 10:58:00 Test Item Value Reference Range Interpretation Comments Eosinophils (test code = 0.2 See_Comment [A utomated message] The Eosinophils) system which ge nerated this result tra nsmitted reference range : <=4.0. The reference r kat was not used to int erpret this result as normal/abnormal . [facility] HeightsVvphmbjCRLQKQTPEN7388-42-37 10:58:00 Test Item Value Reference Range Interpretation Comments Monocytes # (test code 0.8 See_Comment [Aut omated message] The = Monocytes #) system which generated this result tra nsmitted reference range : <=0.8. The reference r kat was not used to int erpret this result as normal/abnormal . [facility] HeightsWoteoelIORBNIWFEM9311-56-87 10:58:00 Test Item Value Reference Range Interpretation Comments Lymphocytes # (test code = Lymphocytes 2.0 1.0-5.5 #) [facility] HeightsEwhbeeiGHVHGHWMRY0254-59-14 10:58:00 Test Item Value Reference Range Interpretation Comments Microcyte (test code = 1+ *ABN*(08/16/15 Microcyte) 4:58 AM) [facility] HeightsAwhupygITBULAHMJK9554-25-85 10:58:00 Test Item Value Reference Range Interpretation Comments MPV (test code = MPV) 8.9 7.4-10.4 [facility] HeightsTvqpifaDMVYAXVSTP3552-78-78 10:58:00 Test Item Value Reference Range Interpretation Comments MCV (test code = MCV) 77.3 80.0-98.0 [facility] HeightsZcwagepPVUOLUBPDC3634-21-21 10:58:00 Test Item Value Reference Range Interpretation Comments Hgb (test code = Hgb) 11.9 12.0-16.0 [facility] HeightsKjjtmodHGKPSLSWDF5536-67-76 10:58:00 Test Item Value Reference Range Interpretation Comments Hct (test code = Hct) 37.5 36.0-48.0 [facility] HeightsVcryqjjMIWDFWBCWE3609-74-78 10:58:00 Test Item Value Reference Range Interpretation Comments MCH (test code = MCH) 24.5 pg 27.0-31.0 [facility] HeightsKigkprxHQWUIAFNQX4562-98-82 10:58:00 Test Item Value Reference Range Interpretation Comments RBC (test code = RBC) 4.85 4.20-5.40 [facility] HeightsAupdufmCBPDDYVQMN8506-12-41 10:58:00 Test Item Value Reference Range Interpretation Comments WBC (test code = WBC) 10.9 3.7-10.4 [facility] HeightsOwftapzNMJRGAPFJB6909-08-83 10:58:00 Test Item Value Reference Range Interpretation Comments RDW (test code = RDW) 15.9 11.5-14.5 [facility] HeightsZrqvxxaGUPGSKKSAR6514-90-83 10:58:00 Test Item Value Reference Range Interpretation Comments MCHC (test code = MCHC) 31.7 32.0-36.0 [facility] HeightsHbpxzgzCTKBOKPDUI5433-06-25 10:58:00 Test Item Value Reference Range Interpretation Comments Platelet (test code = Platelet) 242 133-450 [facility]2015-12-18 10:58:00 Test Item Value Reference Range Interpretation Comments eGFR (test code = eGFR) 126 [facility]2015-12-18 10:58:00 Test Item Value Reference Range Interpretation Comments AST (test code = AST) 29 See_Comment [Auto mated message] The system which ge nerated this result transmit arvind reference range : <=37. The reference range was not used to interpr et this result as mario l/abnormal. [facility]2015-12-18 10:58:00 Test Item Value Reference Range Interpretation Comments Alk Phos (test code = Alk Phos) 86 39-136 [facility]2015-12-18 10:58:00 Test Item Value Reference Range Interpretation Comments Bili Total (test code = Bili Total) 0.3 0.2-1.3 [facility]2015-12-18 10:58:00 Test Item Value Reference Range Interpretation Comments ALT (test code = ALT) 50 See_Comment [Auto mated message] The system which ge nerated this result transmit arvind reference range : <=65. The reference range was not used to interpr et this result as mario l/abnormal. [facility]2015-12-18 10:58:00 Test Item Value Reference Range Interpretation Comments Sodium Lvl (test code = Sodium Lvl) 136 135-145 [facility]2015-12-18 10:58:00 Test Item Value Reference Range Interpretation Comments Potassium Lvl (test code = Potassium 4.0 3.5-5.1 Lvl) [facility]2015-12-18 10:58:00 Test Item Value Reference Range Interpretation Comments Creatinine Lvl (test code = Creatinine 0.62 0.50-1.40 Lvl) [facility]2015-12-18 10:58:00 Test Item Value Reference Range Interpretation Comments Glucose Lvl (test code = Glucose Lvl) 101 70-99 [facility]2015-12-18 10:58:00 Test Item Value Reference Range Interpretation Comments BUN (test code = BUN) 5 7-22 [facility]2015-12-18 10:58:00 Test Item Value Reference Range Interpretation Comments Total Protein (test code = Total 5.8 6.4-8.4 Protein) [facility]2015-12-18 10:58:00 Test Item Value Reference Range Interpretation Comments Albumin Lvl (test code = Albumin Lvl) 3.2 3.5-5.0 [facility]2015-12-18 10:58:00 Test Item Value Reference Range Interpretation Comments Chloride Lvl (test code = Chloride Lvl) 100 95-109 [facility]2015-12-18 10:58:00 Test Item Value Reference Range Interpretation Comments Calcium Lvl (test code = Calcium Lvl) 8.6 8.5-10.5 [facility]2015-12-18 10:58:00 Test Item Value Reference Range Interpretation Comments CO2 (test code = CO2) 27 24-32 [facility]2015-12-18 10:58:00 Test Item Value Reference Range Interpretation Comments B/C Ratio (test code = B/C Ratio) 8 6-25 [facility]2015-12-18 10:58:00 Test Item Value Reference Range Interpretation Comments Globulin (test code = Globulin) 2.6 2.0-4.0 [facility]2015-12-18 10:58:00 Test Item Value Reference Range Interpretation Comments A/G Ratio (test code = A/G Ratio) 1.2 0.7-1.6 [facility]2015-12-18 10:58:00 Test Item Value Reference Range Interpretation Comments AGAP (test code = AGAP) 13.0 10.0-20.0 [facility] HeightsBzuehogVXQCFZACDO7447-76-52 10:58:00 Test Item Value Reference Range Interpretation Comments Segs (test code = Segs) 74.2 45.0-75.0 [facility] HeightsXzlczbaODKPAHKYWX9422-64-94 10:58:00 Test Item Value Reference Range Interpretation Comments Lymphocytes (test code = Lymphocytes) 18.3 20.0-40.0 [facility] HeightsMvupnhdXTZRZHLJNE6605-26-46 10:58:00 Test Item Value Reference Range Interpretation Comments Monocytes (test code = Monocytes) 7.0 2.0-12.0 [facility] HeightsLijvevgBBMOFIQWWL3648-94-49 10:58:00 Test Item Value Reference Range Interpretation Comments Basophils (test code = 0.3 See_Comment [Aut omated message] The Basophils) system which ge nerated this result tra nsmitted reference range : <=1.0. The reference r kat was not used to int erpret this result as normal/abnormal . [facility] HeightsUnqsjgcCQFABQFXSA2207-35-26 10:58:00 Test Item Value Reference Range Interpretation Comments Segs-Bands # (test code = Segs-Bands #) 8.1 1.5-8.1 [facility] HeightsObqcwfkZNONFGRQDJ9897-59-07 10:58:00 Test Item Value Reference Range Interpretation Comments Eosinophils (test code = 0.2 See_Comment [A utomated message] The Eosinophils) system which ge nerated this result tra nsmitted reference range : <=4.0. The reference r kat was not used to int erpret this result as normal/abnormal . [facility] HeightsFnfwotrEYECRVRNOD5665-54-09 10:58:00 Test Item Value Reference Range Interpretation Comments Monocytes # (test code 0.8 See_Comment [Aut omated message] The = Monocytes #) system which generated this result tra nsmitted reference range : <=0.8. The reference r kat was not used to int erpret this result as normal/abnormal . [facility] HeightsDpfiwhdXSIDTSKNLI9250-39-81 10:58:00 Test Item Value Reference Range Interpretation Comments Lymphocytes # (test code = Lymphocytes 2.0 1.0-5.5 #) [facility] HeightsVxsmngeMTHCIWKHPR1142-34-84 10:58:00 Test Item Value Reference Range Interpretation Comments Microcyte (test code = 1+ *ABN*(08/16/15 Microcyte) 4:58 AM) [facility] HeightsZvxvekzJCLFYKJVVK4242-96-44 10:58:00 Test Item Value Reference Range Interpretation Comments MPV (test code = MPV) 8.9 7.4-10.4 [facility] HeightsJjcsglzWTYTIQRHAX1328-53-99 10:58:00 Test Item Value Reference Range Interpretation Comments MCV (test code = MCV) 77.3 80.0-98.0 [facility] HeightsIxalsqvCSKIZTRBXC6603-62-78 10:58:00 Test Item Value Reference Range Interpretation Comments Hgb (test code = Hgb) 11.9 12.0-16.0 [facility] HeightsOfcyzfqUMAWGBGSPZ0325-07-63 10:58:00 Test Item Value Reference Range Interpretation Comments Hct (test code = Hct) 37.5 36.0-48.0 [facility] HeightsUdlvojjYIIKEGEHUV1824-22-74 10:58:00 Test Item Value Reference Range Interpretation Comments MCH (test code = MCH) 24.5 pg 27.0-31.0 [facility] HeightsEjvnwzxSVLAIGQPFS0597-65-15 10:58:00 Test Item Value Reference Range Interpretation Comments RBC (test code = RBC) 4.85 4.20-5.40 [facility] HeightsXfhaauhIUXQOSSCJP6040-95-13 10:58:00 Test Item Value Reference Range Interpretation Comments WBC (test code = WBC) 10.9 3.7-10.4 [facility] HeightsExkfvqaCOQMHETNVM3945-80-66 10:58:00 Test Item Value Reference Range Interpretation Comments RDW (test code = RDW) 15.9 11.5-14.5 [facility] HeightsNlsjejqMQEFHJAVNB4432-34-72 10:58:00 Test Item Value Reference Range Interpretation Comments MCHC (test code = MCHC) 31.7 32.0-36.0 [facility] HeightsFiltchuZVAYRTHFKT8451-40-48 10:58:00 Test Item Value Reference Range Interpretation Comments Platelet (test code = Platelet) 242 133-450 [facility]2015-12-18 10:58:00 Test Item Value Reference Range Interpretation Comments eGFR (test code = eGFR) 126 [facility]2015-12-18 10:58:00 Test Item Value Reference Range Interpretation Comments AST (test code = AST) 29 See_Comment [Auto mated message] The system which ge nerated this result transmit arvind reference range : <=37. The reference range was not used to interpr et this result as mario l/abnormal. [facility]2015-12-18 10:58:00 Test Item Value Reference Range Interpretation Comments Alk Phos (test code = Alk Phos) 86 39-136 [facility]2015-12-18 10:58:00 Test Item Value Reference Range Interpretation Comments Bili Total (test code = Bili Total) 0.3 0.2-1.3 [facility]2015-12-18 10:58:00 Test Item Value Reference Range Interpretation Comments ALT (test code = ALT) 50 See_Comment [Auto mated message] The system which ge nerated this result transmit arvind reference range : <=65. The reference range was not used to interpr et this result as mario l/abnormal. [facility]2015-12-18 10:58:00 Test Item Value Reference Range Interpretation Comments Sodium Lvl (test code = Sodium Lvl) 136 135-145 [facility]2015-12-18 10:58:00 Test Item Value Reference Range Interpretation Comments Potassium Lvl (test code = Potassium 4.0 3.5-5.1 Lvl) [facility]2015-12-18 10:58:00 Test Item Value Reference Range Interpretation Comments Creatinine Lvl (test code = Creatinine 0.62 0.50-1.40 Lvl) [facility]2015-12-18 10:58:00 Test Item Value Reference Range Interpretation Comments Glucose Lvl (test code = Glucose Lvl) 101 70-99 [facility]2015-12-18 10:58:00 Test Item Value Reference Range Interpretation Comments BUN (test code = BUN) 5 7-22 [facility]2015-12-18 10:58:00 Test Item Value Reference Range Interpretation Comments Total Protein (test code = Total 5.8 6.4-8.4 Protein) [facility]2015-12-18 10:58:00 Test Item Value Reference Range Interpretation Comments Albumin Lvl (test code = Albumin Lvl) 3.2 3.5-5.0 [facility]2015-12-18 10:58:00 Test Item Value Reference Range Interpretation Comments Chloride Lvl (test code = Chloride Lvl) 100 95-109 [facility]2015-12-18 10:58:00 Test Item Value Reference Range Interpretation Comments Calcium Lvl (test code = Calcium Lvl) 8.6 8.5-10.5 [facility]2015-12-18 10:58:00 Test Item Value Reference Range Interpretation Comments CO2 (test code = CO2) 27 24-32 [facility]2015-12-18 10:58:00 Test Item Value Reference Range Interpretation Comments B/C Ratio (test code = B/C Ratio) 8 6-25 [facility]2015-12-18 10:58:00 Test Item Value Reference Range Interpretation Comments Globulin (test code = Globulin) 2.6 2.0-4.0 [facility]2015-12-18 10:58:00 Test Item Value Reference Range Interpretation Comments A/G Ratio (test code = A/G Ratio) 1.2 0.7-1.6 [facility]2015-12-18 10:58:00 Test Item Value Reference Range Interpretation Comments AGAP (test code = AGAP) 13.0 10.0-20.0 [facility] HeightsNeyaepvCQMFVEYKAX7802-47-90 10:58:00 Test Item Value Reference Range Interpretation Comments Segs (test code = Segs) 74.2 45.0-75.0 [facility] HeightsXmrzkdsWFRWBIYTNC7242-49-13 10:58:00 Test Item Value Reference Range Interpretation Comments Lymphocytes (test code = Lymphocytes) 18.3 20.0-40.0 [facility] HeightsMctyuovAJHWJPDPXR5130-36-25 10:58:00 Test Item Value Reference Range Interpretation Comments Monocytes (test code = Monocytes) 7.0 2.0-12.0 [facility] HeightsFpuhzbgYCKKLUFWQH4070-95-77 10:58:00 Test Item Value Reference Range Interpretation Comments Basophils (test code = 0.3 See_Comment [Aut omated message] The Basophils) system which ge nerated this result tra nsmitted reference range : <=1.0. The reference r kat was not used to int erpret this result as normal/abnormal . [facility] HeightsLfoorkkZNJDHXKPDK3929-04-17 10:58:00 Test Item Value Reference Range Interpretation Comments Segs-Bands # (test code = Segs-Bands #) 8.1 1.5-8.1 [facility] HeightsZdcosipOJOZJJGXNH1844-21-73 10:58:00 Test Item Value Reference Range Interpretation Comments Eosinophils (test code = 0.2 See_Comment [A utomated message] The Eosinophils) system which ge nerated this result tra nsmitted reference range : <=4.0. The reference r kat was not used to int erpret this result as normal/abnormal . [facility] HeightsJolvbksIFJNRRJFQB3677-03-65 10:58:00 Test Item Value Reference Range Interpretation Comments Monocytes # (test code 0.8 See_Comment [Aut omated message] The = Monocytes #) system which generated this result tra nsmitted reference range : <=0.8. The reference r kat was not used to int erpret this result as normal/abnormal . [facility] HeightsAfymifwLSNMHGJCLY0526-67-60 10:58:00 Test Item Value Reference Range Interpretation Comments Lymphocytes # (test code = Lymphocytes 2.0 1.0-5.5 #) [facility] HeightsSakfouzRJCEHERWZN1328-90-17 10:58:00 Test Item Value Reference Range Interpretation Comments Microcyte (test code = 1+ *ABN*(08/16/15 Microcyte) 4:58 AM) [facility] HeightsVntrqdzDTNNQIPTBM3835-78-34 10:58:00 Test Item Value Reference Range Interpretation Comments MPV (test code = MPV) 8.9 7.4-10.4 [facility] HeightsSpomybjVVTMRPCRIF5863-18-83 10:58:00 Test Item Value Reference Range Interpretation Comments MCV (test code = MCV) 77.3 80.0-98.0 [facility] HeightsFgtrmujYQCRUYVWIQ5450-47-06 10:58:00 Test Item Value Reference Range Interpretation Comments Hgb (test code = Hgb) 11.9 12.0-16.0 [facility] HeightsDkaesuiYYRILTILFR0955-56-90 10:58:00 Test Item Value Reference Range Interpretation Comments Hct (test code = Hct) 37.5 36.0-48.0 [facility] HeightsXnleurjHHWYODGPAZ7217-70-93 10:58:00 Test Item Value Reference Range Interpretation Comments MCH (test code = MCH) 24.5 pg 27.0-31.0 [facility] HeightsWntjylgBKUAXMAOWR1720-34-78 10:58:00 Test Item Value Reference Range Interpretation Comments RBC (test code = RBC) 4.85 4.20-5.40 [facility] HeightsGqhgfrsSFMMTXIKJT4447-73-96 10:58:00 Test Item Value Reference Range Interpretation Comments WBC (test code = WBC) 10.9 3.7-10.4 [facility] HeightsXmsptjbWCDNVHKZYU3349-15-78 10:58:00 Test Item Value Reference Range Interpretation Comments RDW (test code = RDW) 15.9 11.5-14.5 [facility] HeightsLzlzzjqVPOJRBOLUO7024-49-22 10:58:00 Test Item Value Reference Range Interpretation Comments MCHC (test code = MCHC) 31.7 32.0-36.0 [facility] HeightsWeukqfzSPBUDUEQUH7706-20-16 10:58:00 Test Item Value Reference Range Interpretation Comments Platelet (test code = Platelet) 242 133-450 [facility]2015-12-18 10:58:00 Test Item Value Reference Range Interpretation Comments eGFR (test code = eGFR) 126 [facility] HGNVP7505-99-12 10:58:00 Test Item Value Reference Range Interpretation Comments AST (test code = AST) 29 See_Comment [Auto mated message] The system which ge nerated this result transmit arvind reference range : <=37. The reference range was not used to interpr et this result as mario l/abnormal. [facility]2015-12-18 10:58:00 Test Item Value Reference Range Interpretation Comments Alk Phos (test code = Alk Phos) 86 39-136 [facility]2015-12-18 10:58:00 Test Item Value Reference Range Interpretation Comments Bili Total (test code = Bili Total) 0.3 0.2-1.3 [facility]2015-12-18 10:58:00 Test Item Value Reference Range Interpretation Comments ALT (test code = ALT) 50 See_Comment [Auto mated message] The system which ge nerated this result transmit arvind reference range : <=65. The reference range was not used to interpr et this result as mario l/abnormal. [facility]2015-12-18 10:58:00 Test Item Value Reference Range Interpretation Comments Sodium Lvl (test code = Sodium Lvl) 136 135-145 [facility]2015-12-18 10:58:00 Test Item Value Reference Range Interpretation Comments Potassium Lvl (test code = Potassium 4.0 3.5-5.1 Lvl) [facility]2015-12-18 10:58:00 Test Item Value Reference Range Interpretation Comments Creatinine Lvl (test code = Creatinine 0.62 0.50-1.40 Lvl) [facility]2015-12-18 10:58:00 Test Item Value Reference Range Interpretation Comments Glucose Lvl (test code = Glucose Lvl) 101 70-99 [facility]2015-12-18 10:58:00 Test Item Value Reference Range Interpretation Comments BUN (test code = BUN) 5 7-22 [facility]2015-12-18 10:58:00 Test Item Value Reference Range Interpretation Comments Total Protein (test code = Total 5.8 6.4-8.4 Protein) [facility]2015-12-18 10:58:00 Test Item Value Reference Range Interpretation Comments Albumin Lvl (test code = Albumin Lvl) 3.2 3.5-5.0 [facility]2015-12-18 10:58:00 Test Item Value Reference Range Interpretation Comments Chloride Lvl (test code = Chloride Lvl) 100 95-109 [facility]2015-12-18 10:58:00 Test Item Value Reference Range Interpretation Comments Calcium Lvl (test code = Calcium Lvl) 8.6 8.5-10.5 [facility]2015-12-18 10:58:00 Test Item Value Reference Range Interpretation Comments CO2 (test code = CO2) 27 24-32 [facility]2015-12-18 10:58:00 Test Item Value Reference Range Interpretation Comments B/C Ratio (test code = B/C Ratio) 8 6-25 [facility]2015-12-18 10:58:00 Test Item Value Reference Range Interpretation Comments Globulin (test code = Globulin) 2.6 2.0-4.0 [facility]2015-12-18 10:58:00 Test Item Value Reference Range Interpretation Comments A/G Ratio (test code = A/G Ratio) 1.2 0.7-1.6 [facility]2015-12-18 10:58:00 Test Item Value Reference Range Interpretation Comments AGAP (test code = AGAP) 13.0 10.0-20.0 [facility] HeightsKlsmqgeHSFOZWWRFC4237-82-58 10:58:00 Test Item Value Reference Range Interpretation Comments Segs (test code = Segs) 74.2 45.0-75.0 [facility] HeightsXlkokslVBMQEYCMZD9334-72-89 10:58:00 Test Item Value Reference Range Interpretation Comments Lymphocytes (test code = Lymphocytes) 18.3 20.0-40.0 [facility] HeightsXjassapMOHDSPBOCF0915-35-60 10:58:00 Test Item Value Reference Range Interpretation Comments Monocytes (test code = Monocytes) 7.0 2.0-12.0 [facility] HeightsTiitascYBFTKHBYUG1417-66-36 10:58:00 Test Item Value Reference Range Interpretation Comments Basophils (test code = 0.3 See_Comment [Aut omated message] The Basophils) system which ge nerated this result tra nsmitted reference range : <=1.0. The reference r kat was not used to int erpret this result as normal/abnormal . [facility] HeightsTcgexmoRKFDGPXFON0255-30-86 10:58:00 Test Item Value Reference Range Interpretation Comments Segs-Bands # (test code = Segs-Bands #) 8.1 1.5-8.1 [facility] HeightsRabvrzeAGQEUNCDDG5492-70-14 10:58:00 Test Item Value Reference Range Interpretation Comments Eosinophils (test code = 0.2 See_Comment [A utomated message] The Eosinophils) system which ge nerated this result tra nsmitted reference range : <=4.0. The reference r kat was not used to int erpret this result as normal/abnormal . [facility] HeightsRrjoofdFGRWMAJQJA3241-43-48 10:58:00 Test Item Value Reference Range Interpretation Comments Monocytes # (test code 0.8 See_Comment [Aut omated message] The = Monocytes #) system which generated this result tra nsmitted reference range : <=0.8. The reference r kat was not used to int erpret this result as normal/abnormal . [facility] HeightsZtvvbpjWVUYVXDWMZ7740-76-50 10:58:00 Test Item Value Reference Range Interpretation Comments Lymphocytes # (test code = Lymphocytes 2.0 1.0-5.5 #) [facility] HeightsBealhliJEMIRFFAKX8150-94-62 10:58:00 Test Item Value Reference Range Interpretation Comments Microcyte (test code = 1+ *ABN*(08/16/15 Microcyte) 4:58 AM) [facility] HeightsQftjiniHSMSJVHFYO0365-04-17 10:58:00 Test Item Value Reference Range Interpretation Comments MPV (test code = MPV) 8.9 7.4-10.4 [facility] HeightsHzbwsxgYWWMHFBFOG6224-72-86 10:58:00 Test Item Value Reference Range Interpretation Comments MCV (test code = MCV) 77.3 80.0-98.0 [facility] HeightsQqislnrIAYYQVZNGH7886-14-60 10:58:00 Test Item Value Reference Range Interpretation Comments Hgb (test code = Hgb) 11.9 12.0-16.0 [facility] HeightsHnuuqgkNJNBJERFOX8485-91-83 10:58:00 Test Item Value Reference Range Interpretation Comments Hct (test code = Hct) 37.5 36.0-48.0 [facility] HeightsLeuxejlVCAENWEFIM3555-99-51 10:58:00 Test Item Value Reference Range Interpretation Comments MCH (test code = MCH) 24.5 pg 27.0-31.0 [facility] HeightsAjbmzcwMWYVJLKKYM5193-11-09 10:58:00 Test Item Value Reference Range Interpretation Comments RBC (test code = RBC) 4.85 4.20-5.40 [facility] HeightsIxkbacoASSFPZBCFV9703-81-14 10:58:00 Test Item Value Reference Range Interpretation Comments WBC (test code = WBC) 10.9 3.7-10.4 [facility] HeightsJepupddMUZTDMYLRY0329-01-92 10:58:00 Test Item Value Reference Range Interpretation Comments RDW (test code = RDW) 15.9 11.5-14.5 [facility] HeightsFqbdmmwBUCKSBVRKW2909-11-79 10:58:00 Test Item Value Reference Range Interpretation Comments MCHC (test code = MCHC) 31.7 32.0-36.0 [facility] HeightsGiwycryAVLDGDLZXH7720-45-92 10:58:00 Test Item Value Reference Range Interpretation Comments Platelet (test code = Platelet) 242 133-450 [facility]2015-12-18 10:58:00 Test Item Value Reference Range Interpretation Comments eGFR (test code = eGFR) 126 [facility]2015-12-18 10:58:00 Test Item Value Reference Range Interpretation Comments AST (test code = AST) 29 See_Comment [Auto mated message] The system which ge nerated this result transmit arvind reference range : <=37. The reference range was not used to interpr et this result as mario l/abnormal. [facility]2015-12-18 10:58:00 Test Item Value Reference Range Interpretation Comments Alk Phos (test code = Alk Phos) 86 39-136 [facility]2015-12-18 10:58:00 Test Item Value Reference Range Interpretation Comments Bili Total (test code = Bili Total) 0.3 0.2-1.3 [facility]2015-12-18 10:58:00 Test Item Value Reference Range Interpretation Comments ALT (test code = ALT) 50 See_Comment [Auto mated message] The system which ge nerated this result transmit arvind reference range : <=65. The reference range was not used to interpr et this result as mario l/abnormal. [facility]2015-12-18 10:58:00 Test Item Value Reference Range Interpretation Comments Sodium Lvl (test code = Sodium Lvl) 136 135-145 [facility]2015-12-18 10:58:00 Test Item Value Reference Range Interpretation Comments Potassium Lvl (test code = Potassium 4.0 3.5-5.1 Lvl) [facility]2015-12-18 10:58:00 Test Item Value Reference Range Interpretation Comments Creatinine Lvl (test code = Creatinine 0.62 0.50-1.40 Lvl) [facility]2015-12-18 10:58:00 Test Item Value Reference Range Interpretation Comments Glucose Lvl (test code = Glucose Lvl) 101 70-99 [facility]2015-12-18 10:58:00 Test Item Value Reference Range Interpretation Comments BUN (test code = BUN) 5 7-22 [facility]2015-12-18 10:58:00 Test Item Value Reference Range Interpretation Comments Total Protein (test code = Total 5.8 6.4-8.4 Protein) [facility]2015-12-18 10:58:00 Test Item Value Reference Range Interpretation Comments Albumin Lvl (test code = Albumin Lvl) 3.2 3.5-5.0 [facility]2015-12-18 10:58:00 Test Item Value Reference Range Interpretation Comments Chloride Lvl (test code = Chloride Lvl) 100 95-109 [facility]2015-12-18 10:58:00 Test Item Value Reference Range Interpretation Comments Calcium Lvl (test code = Calcium Lvl) 8.6 8.5-10.5 [facility]2015-12-18 10:58:00 Test Item Value Reference Range Interpretation Comments CO2 (test code = CO2) 27 24-32 [facility]2015-12-18 10:58:00 Test Item Value Reference Range Interpretation Comments B/C Ratio (test code = B/C Ratio) 8 6-25 [facility]2015-12-18 10:58:00 Test Item Value Reference Range Interpretation Comments Globulin (test code = Globulin) 2.6 2.0-4.0 [facility]2015-12-18 10:58:00 Test Item Value Reference Range Interpretation Comments A/G Ratio (test code = A/G Ratio) 1.2 0.7-1.6 [facility]2015-12-18 10:58:00 Test Item Value Reference Range Interpretation Comments AGAP (test code = AGAP) 13.0 10.0-20.0 [facility] HeightsXryvuonIWBWHODGIG6476-25-17 10:58:00 Test Item Value Reference Range Interpretation Comments Segs (test code = Segs) 74.2 45.0-75.0 [facility] HeightsQaosovyZUURTJOKZK0419-96-23 10:58:00 Test Item Value Reference Range Interpretation Comments Lymphocytes (test code = Lymphocytes) 18.3 20.0-40.0 [facility] HeightsUedneiqLQFUVQRAVH9564-03-10 10:58:00 Test Item Value Reference Range Interpretation Comments Monocytes (test code = Monocytes) 7.0 2.0-12.0 [facility] HeightsDfvqnhcKYMISXXZOF9437-95-23 10:58:00 Test Item Value Reference Range Interpretation Comments Basophils (test code = 0.3 See_Comment [Aut omated message] The Basophils) system which ge nerated this result tra nsmitted reference range : <=1.0. The reference r kat was not used to int erpret this result as normal/abnormal . [facility] HeightsFlvulqyFCAFWLSWBZ5273-74-49 10:58:00 Test Item Value Reference Range Interpretation Comments Segs-Bands # (test code = Segs-Bands #) 8.1 1.5-8.1 [facility] HeightsUyisfyzEYNSBESDTE2136-63-46 10:58:00 Test Item Value Reference Range Interpretation Comments Eosinophils (test code = 0.2 See_Comment [A utomated message] The Eosinophils) system which ge nerated this result tra nsmitted reference range : <=4.0. The reference r kat was not used to int erpret this result as normal/abnormal . [facility] HeightsWcuvgmoKAJTVNCQQC9341-91-82 10:58:00 Test Item Value Reference Range Interpretation Comments Monocytes # (test code 0.8 See_Comment [Aut omated message] The = Monocytes #) system which generated this result tra nsmitted reference range : <=0.8. The reference r kat was not used to int erpret this result as normal/abnormal . [facility] HeightsUdvnnqpIPDXGINWJN2539-45-80 10:58:00 Test Item Value Reference Range Interpretation Comments Lymphocytes # (test code = Lymphocytes 2.0 1.0-5.5 #) [facility] HeightsOzevdneUJAUZCAPHU1147-92-53 10:58:00 Test Item Value Reference Range Interpretation Comments Microcyte (test code = 1+ *ABN*(08/16/15 Microcyte) 4:58 AM) [facility] HeightsXwkgkabFLTYELZPTK3217-55-63 10:58:00 Test Item Value Reference Range Interpretation Comments MPV (test code = MPV) 8.9 7.4-10.4 [facility] HeightsBdczhjiMWFKCRKGGB9378-57-21 10:58:00 Test Item Value Reference Range Interpretation Comments MCV (test code = MCV) 77.3 80.0-98.0 [facility] HeightsQyaphzrYXRBMLBWHA8917-85-71 10:58:00 Test Item Value Reference Range Interpretation Comments Hgb (test code = Hgb) 11.9 12.0-16.0 [facility] HeightsSdocqkbLRUPCZBUFL8205-21-34 10:58:00 Test Item Value Reference Range Interpretation Comments Hct (test code = Hct) 37.5 36.0-48.0 [facility] HeightsXbjjnxsQTSWONDKAI6742-16-47 10:58:00 Test Item Value Reference Range Interpretation Comments MCH (test code = MCH) 24.5 pg 27.0-31.0 [facility] HeightsOjewrneXHMYWJBKVC4127-73-29 10:58:00 Test Item Value Reference Range Interpretation Comments RBC (test code = RBC) 4.85 4.20-5.40 [facility] HeightsPejivlfCVCOYFALRP3494-36-66 10:58:00 Test Item Value Reference Range Interpretation Comments WBC (test code = WBC) 10.9 3.7-10.4 [facility] HeightsJfkvjrpTSEXUHJHPZ4255-51-36 10:58:00 Test Item Value Reference Range Interpretation Comments RDW (test code = RDW) 15.9 11.5-14.5 [facility] HeightsKybbjisIJISNOQGUQ6603-20-79 10:58:00 Test Item Value Reference Range Interpretation Comments MCHC (test code = MCHC) 31.7 32.0-36.0 [facility] HeightsUvezxfuUZKEOTACVP3614-76-37 10:58:00 Test Item Value Reference Range Interpretation Comments Platelet (test code = Platelet) 242 133-450 [facility]WH98[facility]26 10:58:00 Test Item Value Reference Range Interpretation Comments eGFR (test code = eGFR) 126 [facility]2015-12-18 10:58:00 Test Item Value Reference Range Interpretation Comments AST (test code = AST) 29 See_Comment [Auto mated message] The system which ge nerated this result transmit arvind reference range : <=37. The reference range was not used to interpr et this result as mario l/abnormal. [facility]2015-12-18 10:58:00 Test Item Value Reference Range Interpretation Comments Alk Phos (test code = Alk Phos) 86 39-136 [facility]2015-12-18 10:58:00 Test Item Value Reference Range Interpretation Comments Bili Total (test code = Bili Total) 0.3 0.2-1.3 [facility]2015-12-18 10:58:00 Test Item Value Reference Range Interpretation Comments ALT (test code = ALT) 50 See_Comment [Auto mated message] The system which ge nerated this result transmit arvind reference range : <=65. The reference range was not used to interpr et this result as mario l/abnormal. [facility]2015-12-18 10:58:00 Test Item Value Reference Range Interpretation Comments Sodium Lvl (test code = Sodium Lvl) 136 135-145 [facility]2015-12-18 10:58:00 Test Item Value Reference Range Interpretation Comments Potassium Lvl (test code = Potassium 4.0 3.5-5.1 Lvl) [facility]2015-12-18 10:58:00 Test Item Value Reference Range Interpretation Comments Creatinine Lvl (test code = Creatinine 0.62 0.50-1.40 Lvl) [facility]2015-12-18 10:58:00 Test Item Value Reference Range Interpretation Comments Glucose Lvl (test code = Glucose Lvl) 101 70-99 [facility]2015-12-18 10:58:00 Test Item Value Reference Range Interpretation Comments BUN (test code = BUN) 5 7-22 [facility]2015-12-18 10:58:00 Test Item Value Reference Range Interpretation Comments Total Protein (test code = Total 5.8 6.4-8.4 Protein) [facility]2015-12-18 10:58:00 Test Item Value Reference Range Interpretation Comments Albumin Lvl (test code = Albumin Lvl) 3.2 3.5-5.0 [facility]2015-12-18 10:58:00 Test Item Value Reference Range Interpretation Comments Chloride Lvl (test code = Chloride Lvl) 100 95-109 [place] 372445-12-18 10:58:00 Test Item Value Reference Range Interpretation Comments Calcium Lvl (test code = Calcium Lvl) 8.6 8.5-10.5 [facility]2015-12-18 10:58:00 Test Item Value Reference Range Interpretation Comments CO2 (test code = CO2) 27 24-32 [facility]2015-12-18 10:58:00 Test Item Value Reference Range Interpretation Comments B/C Ratio (test code = B/C Ratio) 8 6-25 [facility]2015-12-18 10:58:00 Test Item Value Reference Range Interpretation Comments Globulin (test code = Globulin) 2.6 2.0-4.0 [facility]2015-12-18 10:58:00 Test Item Value Reference Range Interpretation Comments A/G Ratio (test code = A/G Ratio) 1.2 0.7-1.6 [facility]2015-12-18 10:58:00 Test Item Value Reference Range Interpretation Comments AGAP (test code = AGAP) 13.0 10.0-20.0 [facility] HeightsHgohlfmZBHDZIVDQT1593-29-38 10:58:00 Test Item Value Reference Range Interpretation Comments Segs (test code = Segs) 74.2 45.0-75.0 [facility] HeightsKazkwaxFNMRGNRIUV4036-08-64 10:58:00 Test Item Value Reference Range Interpretation Comments Lymphocytes (test code = Lymphocytes) 18.3 20.0-40.0 [facility] HeightsCycoxvpTFQEPCTWCH9696-43-11 10:58:00 Test Item Value Reference Range Interpretation Comments Monocytes (test code = Monocytes) 7.0 2.0-12.0 [facility] HeightsEtmebigQDXCESACSG1063-25-57 10:58:00 Test Item Value Reference Range Interpretation Comments Basophils (test code = 0.3 See_Comment [Aut omated message] The Basophils) system which ge nerated this result tra nsmitted reference range : <=1.0. The reference r kat was not used to int erpret this result as normal/abnormal . [facility] HeightsIgbvnsoXDGLDVXGFU5662-44-47 10:58:00 Test Item Value Reference Range Interpretation Comments Segs-Bands # (test code = Segs-Bands #) 8.1 1.5-8.1 [place] 309205-12-18 10:58:00 Test Item Value Reference Range Interpretation Comments Eosinophils (test code = 0.2 See_Comment [A utomated message] The Eosinophils) system which ge nerated this result tra nsmitted reference range : <=4.0. The reference r kat was not used to int erpret this result as normal/abnormal . [facility] HeightsGrtlsmdJUAYSWJPUO1136-96-17 10:58:00 Test Item Value Reference Range Interpretation Comments Monocytes # (test code 0.8 See_Comment [Aut omated message] The = Monocytes #) system which generated this result tra nsmitted reference range : <=0.8. The reference r kat was not used to int erpret this result as normal/abnormal . [facility] HeightsQaceiwkYJOXCVIXLF8624-04-32 10:58:00 Test Item Value Reference Range Interpretation Comments Lymphocytes # (test code = Lymphocytes 2.0 1.0-5.5 #) [facility] HeightsTbkzbewTCVCZJDXGD1804-48-97 10:58:00 Test Item Value Reference Range Interpretation Comments Microcyte (test code = 1+ *ABN*(08/16/15 Microcyte) 4:58 AM) [facility] HeightsGzdtbkwELJRCGGSWZ2838-14-04 10:58:00 Test Item Value Reference Range Interpretation Comments MPV (test code = MPV) 8.9 7.4-10.4 [facility] HeightsQyexhuiVQMFZIWGTR4330-00-60 10:58:00 Test Item Value Reference Range Interpretation Comments MCV (test code = MCV) 77.3 80.0-98.0 [facility] HeightsFjbmtkuLLGGDVNSKD7140-08-23 10:58:00 Test Item Value Reference Range Interpretation Comments Hgb (test code = Hgb) 11.9 12.0-16.0 [facility] HeightsDuuzlsoBDAYHBQIFI7173-17-94 10:58:00 Test Item Value Reference Range Interpretation Comments Hct (test code = Hct) 37.5 36.0-48.0 [facility] HeightsCtvheywNTODNZQCFM7722-86-64 10:58:00 Test Item Value Reference Range Interpretation Comments MCH (test code = MCH) 24.5 pg 27.0-31.0 [facility] HeightsJpflnxvGPLBUYLUHP5905-41-98 10:58:00 Test Item Value Reference Range Interpretation Comments RBC (test code = RBC) 4.85 4.20-5.40 [facility] HeightsJuysduyQCBXAMRPFX8837-95-62 10:58:00 Test Item Value Reference Range Interpretation Comments WBC (test code = WBC) 10.9 3.7-10.4 [facility] HeightsJzbkqljBEWBUWPMJN2689-42-27 10:58:00 Test Item Value Reference Range Interpretation Comments RDW (test code = RDW) 15.9 11.5-14.5 [facility] HeightsIpbnhmvKSURBVHBDX5243-37-49 10:58:00 Test Item Value Reference Range Interpretation Comments MCHC (test code = MCHC) 31.7 32.0-36.0 [facility] HeightsBwymclnIPDQXSZETT7067-83-64 10:58:00 Test Item Value Reference Range Interpretation Comments Platelet (test code = Platelet) 242 133-450 [facility]2015-12-18 10:58:00 Test Item Value Reference Range Interpretation Comments eGFR (test code = eGFR) 126 [facility]2015-12-18 10:58:00 Test Item Value Reference Range Interpretation Comments AST (test code = AST) 29 See_Comment [Auto mated message] The system which ge nerated this result transmit arvind reference range : <=37. The reference range was not used to interpr et this result as mario l/abnormal. [facility]2015-12-18 10:58:00 Test Item Value Reference Range Interpretation Comments Alk Phos (test code = Alk Phos) 86 39-136 [facility]2015-12-18 10:58:00 Test Item Value Reference Range Interpretation Comments Bili Total (test code = Bili Total) 0.3 0.2-1.3 [facility]2015-12-18 10:58:00 Test Item Value Reference Range Interpretation Comments ALT (test code = ALT) 50 See_Comment [Auto mated message] The system which ge nerated this result transmit arvind reference range : <=65. The reference range was not used to interpr et this result as mario l/abnormal. [facility]2015-12-18 10:58:00 Test Item Value Reference Range Interpretation Comments Sodium Lvl (test code = Sodium Lvl) 136 135-145 [facility]2015-12-18 10:58:00 Test Item Value Reference Range Interpretation Comments Potassium Lvl (test code = Potassium 4.0 3.5-5.1 Lvl) [place] 372445-12-18 10:58:00 Test Item Value Reference Range Interpretation Comments Creatinine Lvl (test code = Creatinine 0.62 0.50-1.40 Lvl) [facility]2015-12-18 10:58:00 Test Item Value Reference Range Interpretation Comments Glucose Lvl (test code = Glucose Lvl) 101 70-99 [facility]2015-12-18 10:58:00 Test Item Value Reference Range Interpretation Comments BUN (test code = BUN) 5 7-22 [facility]2015-12-18 10:58:00 Test Item Value Reference Range Interpretation Comments Total Protein (test code = Total 5.8 6.4-8.4 Protein) [facility]2015-12-18 10:58:00 Test Item Value Reference Range Interpretation Comments Albumin Lvl (test code = Albumin Lvl) 3.2 3.5-5.0 [facility]2015-12-18 10:58:00 Test Item Value Reference Range Interpretation Comments Chloride Lvl (test code = Chloride Lvl) 100 95-109 [facility]2015-12-18 10:58:00 Test Item Value Reference Range Interpretation Comments Calcium Lvl (test code = Calcium Lvl) 8.6 8.5-10.5 [facility]2015-12-18 10:58:00 Test Item Value Reference Range Interpretation Comments CO2 (test code = CO2) 27 24-32 [facility]2015-12-18 10:58:00 Test Item Value Reference Range Interpretation Comments B/C Ratio (test code = B/C Ratio) 8 6-25 [facility]2015-12-18 10:58:00 Test Item Value Reference Range Interpretation Comments Globulin (test code = Globulin) 2.6 2.0-4.0 [facility]2015-12-18 10:58:00 Test Item Value Reference Range Interpretation Comments A/G Ratio (test code = A/G Ratio) 1.2 0.7-1.6 [facility]2015-12-18 10:58:00 Test Item Value Reference Range Interpretation Comments AGAP (test code = AGAP) 13.0 10.0-20.0 [facility] HeightsHcmzjpyJOSRIVUNVZ4519-96-94 10:58:00 Test Item Value Reference Range Interpretation Comments Segs (test code = Segs) 74.2 45.0-75.0 [facility] HeightsBihlvplVOQCTWMWHW6083-77-57 10:58:00 Test Item Value Reference Range Interpretation Comments Lymphocytes (test code = Lymphocytes) 18.3 20.0-40.0 [facility] HeightsNbkmcubZBZDJPQOQX4312-64-33 10:58:00 Test Item Value Reference Range Interpretation Comments Monocytes (test code = Monocytes) 7.0 2.0-12.0 [facility] HeightsZkhlaoaRIJYRUUEEV5517-00-43 10:58:00 Test Item Value Reference Range Interpretation Comments Basophils (test code = 0.3 See_Comment [Aut omated message] The Basophils) system which ge nerated this result tra nsmitted reference range : <=1.0. The reference r kat was not used to int erpret this result as normal/abnormal . [facility] HeightsKbqlhtnWAAMYERXPO6505-35-33 10:58:00 Test Item Value Reference Range Interpretation Comments Segs-Bands # (test code = Segs-Bands #) 8.1 1.5-8.1 [facility] HeightsVfgxxptGCIKGJKAQJ0731-42-75 10:58:00 Test Item Value Reference Range Interpretation Comments Eosinophils (test code = 0.2 See_Comment [A utomated message] The Eosinophils) system which ge nerated this result tra nsmitted reference range : <=4.0. The reference r kat was not used to int erpret this result as normal/abnormal . [facility] HeightsNfqwxiqUQRUELCOUI6378-82-00 10:58:00 Test Item Value Reference Range Interpretation Comments Monocytes # (test code 0.8 See_Comment [Aut omated message] The = Monocytes #) system which generated this result tra nsmitted reference range : <=0.8. The reference r kat was not used to int erpret this result as normal/abnormal . [facility] HeightsAuyffhfXQXKZJWLOU6853-77-61 10:58:00 Test Item Value Reference Range Interpretation Comments Lymphocytes # (test code = Lymphocytes 2.0 1.0-5.5 #) [facility] HeightsBmsrhqwOKHMBJUICL5897-22-46 10:58:00 Test Item Value Reference Range Interpretation Comments Microcyte (test code = 1+ *ABN*(08/16/15 Microcyte) 4:58 AM) [facility] HeightsDfygfgqMDKBVBZVQN7955-55-67 10:58:00 Test Item Value Reference Range Interpretation Comments MPV (test code = MPV) 8.9 7.4-10.4 [facility] HeightsBzmwatdLGLLGEMZZI8881-19-05 10:58:00 Test Item Value Reference Range Interpretation Comments MCV (test code = MCV) 77.3 80.0-98.0 [facility] HeightsWbeqqifRBOENCAGXT2938-15-12 10:58:00 Test Item Value Reference Range Interpretation Comments Hgb (test code = Hgb) 11.9 12.0-16.0 [facility] HeightsDtlfqqrVVQQXSAZEW0133-76-75 10:58:00 Test Item Value Reference Range Interpretation Comments Hct (test code = Hct) 37.5 36.0-48.0 [facility] HeightsBmuzdjcWMKASCUCCT0047-83-69 10:58:00 Test Item Value Reference Range Interpretation Comments MCH (test code = MCH) 24.5 pg 27.0-31.0 [facility] HeightsZbxhgtbYDKRONQBLL3672-60-25 10:58:00 Test Item Value Reference Range Interpretation Comments RBC (test code = RBC) 4.85 4.20-5.40 [facility] HeightsVgswrtsYAHYSWRMAT8052-97-09 10:58:00 Test Item Value Reference Range Interpretation Comments WBC (test code = WBC) 10.9 3.7-10.4 [facility] HeightsNtvocufJCWOROLYAH6097-92-19 10:58:00 Test Item Value Reference Range Interpretation Comments RDW (test code = RDW) 15.9 11.5-14.5 [facility] HeightsFktsobaEZHYIYQXHB7273-02-51 10:58:00 Test Item Value Reference Range Interpretation Comments MCHC (test code = MCHC) 31.7 32.0-36.0 [facility] HeightsJeznhnuLPBQHWLROI3767-58-64 10:58:00 Test Item Value Reference Range Interpretation Comments Platelet (test code = Platelet) 242 133-450 [facility]2015-12-18 10:58:00 Test Item Value Reference Range Interpretation Comments eGFR (test code = eGFR) 126 [facility]2015-12-18 10:58:00 Test Item Value Reference Range Interpretation Comments AST (test code = AST) 29 See_Comment [Auto mated message] The system which ge nerated this result transmit arvind reference range : <=37. The reference range was not used to interpr et this result as mario l/abnormal. [facility]2015-12-18 10:58:00 Test Item Value Reference Range Interpretation Comments Alk Phos (test code = Alk Phos) 86 39-136 [facility]2015-12-18 10:58:00 Test Item Value Reference Range Interpretation Comments Bili Total (test code = Bili Total) 0.3 0.2-1.3 [facility]2015-12-18 10:58:00 Test Item Value Reference Range Interpretation Comments ALT (test code = ALT) 50 See_Comment [Auto mated message] The system which ge nerated this result transmit arvind reference range : <=65. The reference range was not used to interpr et this result as mario l/abnormal. [facility]2015-12-18 10:58:00 Test Item Value Reference Range Interpretation Comments Sodium Lvl (test code = Sodium Lvl) 136 135-145 [facility]2015-12-18 10:58:00 Test Item Value Reference Range Interpretation Comments Potassium Lvl (test code = Potassium 4.0 3.5-5.1 Lvl) [facility]2015-12-18 10:58:00 Test Item Value Reference Range Interpretation Comments Creatinine Lvl (test code = Creatinine 0.62 0.50-1.40 Lvl) [facility]2015-12-18 10:58:00 Test Item Value Reference Range Interpretation Comments Glucose Lvl (test code = Glucose Lvl) 101 70-99 [facility]2015-12-18 10:58:00 Test Item Value Reference Range Interpretation Comments BUN (test code = BUN) 5 7-22 [facility]2015-12-18 10:58:00 Test Item Value Reference Range Interpretation Comments Total Protein (test code = Total 5.8 6.4-8.4 Protein) [facility]2015-12-18 10:58:00 Test Item Value Reference Range Interpretation Comments Albumin Lvl (test code = Albumin Lvl) 3.2 3.5-5.0 [facility]2015-12-18 10:58:00 Test Item Value Reference Range Interpretation Comments Chloride Lvl (test code = Chloride Lvl) 100 95-109 [facility]2015-12-18 10:58:00 Test Item Value Reference Range Interpretation Comments Calcium Lvl (test code = Calcium Lvl) 8.6 8.5-10.5 [facility]2015-12-18 10:58:00 Test Item Value Reference Range Interpretation Comments CO2 (test code = CO2) 27 24-32 [facility]2015-12-18 10:58:00 Test Item Value Reference Range Interpretation Comments B/C Ratio (test code = B/C Ratio) 8 6-25 [facility]2015-12-18 10:58:00 Test Item Value Reference Range Interpretation Comments Globulin (test code = Globulin) 2.6 2.0-4.0 [facility]2015-12-18 10:58:00 Test Item Value Reference Range Interpretation Comments A/G Ratio (test code = A/G Ratio) 1.2 0.7-1.6 [facility]2015-12-18 10:58:00 Test Item Value Reference Range Interpretation Comments AGAP (test code = AGAP) 13.0 10.0-20.0 [facility] HeightsOvvoecfNTRVMTQWFY8220-63-55 10:58:00 Test Item Value Reference Range Interpretation Comments Segs (test code = Segs) 74.2 45.0-75.0 [facility] HeightsDqxazoaMMMVBSAKHH4894-30-66 10:58:00 Test Item Value Reference Range Interpretation Comments Lymphocytes (test code = Lymphocytes) 18.3 20.0-40.0 [facility] HeightsFxvffxjYJCQWYIFKW5387-50-91 10:58:00 Test Item Value Reference Range Interpretation Comments Monocytes (test code = Monocytes) 7.0 2.0-12.0 [facility] HeightsRwuikpiDLFZNLGLGV7552-79-79 10:58:00 Test Item Value Reference Range Interpretation Comments Basophils (test code = 0.3 See_Comment [Aut omated message] The Basophils) system which ge nerated this result tra nsmitted reference range : <=1.0. The reference r kat was not used to int erpret this result as normal/abnormal . [facility] HeightsRozgipaLGLHYNNFNR0644-20-42 10:58:00 Test Item Value Reference Range Interpretation Comments Segs-Bands # (test code = Segs-Bands #) 8.1 1.5-8.1 [facility] HeightsHafijwqUNJKEUSXSZ1801-20-81 10:58:00 Test Item Value Reference Range Interpretation Comments Eosinophils (test code = 0.2 See_Comment [A utomated message] The Eosinophils) system which ge nerated this result tra nsmitted reference range : <=4.0. The reference r kat was not used to int erpret this result as normal/abnormal . [facility] HeightsJzhklbtUFWUCMSMLJ9754-13-34 10:58:00 Test Item Value Reference Range Interpretation Comments Monocytes # (test code 0.8 See_Comment [Aut omated message] The = Monocytes #) system which generated this result tra nsmitted reference range : <=0.8. The reference r kat was not used to int erpret this result as normal/abnormal . [facility] HeightsKrpcwsuJHCBXBNXKL8904-92-03 10:58:00 Test Item Value Reference Range Interpretation Comments Lymphocytes # (test code = Lymphocytes 2.0 1.0-5.5 #) [facility] HeightsJztcrgoBGDLOADJUF3568-99-84 10:58:00 Test Item Value Reference Range Interpretation Comments Microcyte (test code = 1+ *ABN*(08/16/15 Microcyte) 4:58 AM) [facility] HeightsWdtysitWDJYENMAUC0640-47-27 10:58:00 Test Item Value Reference Range Interpretation Comments MPV (test code = MPV) 8.9 7.4-10.4 [facility] HeightsJmhnirjMXBFFXBTCJ1610-25-15 10:58:00 Test Item Value Reference Range Interpretation Comments MCV (test code = MCV) 77.3 80.0-98.0 [facility] HeightsSvzumbkKOMBODFVKG0415-63-24 10:58:00 Test Item Value Reference Range Interpretation Comments Hgb (test code = Hgb) 11.9 12.0-16.0 [facility] HeightsMajsuahGCPMSTCSIK8273-57-12 10:58:00 Test Item Value Reference Range Interpretation Comments Hct (test code = Hct) 37.5 36.0-48.0 [facility] HeightsVwlopgjHHAMSPGBSS2396-86-62 10:58:00 Test Item Value Reference Range Interpretation Comments MCH (test code = MCH) 24.5 pg 27.0-31.0 [facility] HeightsTtzprgnYNOZONGICO0301-95-25 10:58:00 Test Item Value Reference Range Interpretation Comments RBC (test code = RBC) 4.85 4.20-5.40 [facility] HeightsDdtinkjYKVQCAWTRO2909-80-84 10:58:00 Test Item Value Reference Range Interpretation Comments WBC (test code = WBC) 10.9 3.7-10.4 [facility] HeightsQsvylgsRIRXTURNEV9794-44-04 10:58:00 Test Item Value Reference Range Interpretation Comments RDW (test code = RDW) 15.9 11.5-14.5 [facility] HeightsJagsxxrOORLRHIZHX1083-23-82 10:58:00 Test Item Value Reference Range Interpretation Comments MCHC (test code = MCHC) 31.7 32.0-36.0 [facility] HeightsZikcbabNHVXEIGHGR9292-84-63 10:58:00 Test Item Value Reference Range Interpretation Comments Platelet (test code = Platelet) 242 133-450 [facility]2015-12-14 15:29:00 Test Item Value Reference Range Interpretation Comments eGFR (test code = eGFR) 101 [facility]2015-12-14 15:29:00 Test Item Value Reference Range Interpretation Comments Creatinine Lvl (test code = Creatinine 0.81 0.50-1.40 Lvl) [facility]2015-12-14 15:29:00 Test Item Value Reference Range Interpretation Comments CO2 (test code = CO2) 27 24-32 [facility]2015-12-14 15:29:00 Test Item Value Reference Range Interpretation Comments Calcium Lvl (test code = Calcium Lvl) 9.7 8.5-10.5 [facility]2015-12-14 15:29:00 Test Item Value Reference Range Interpretation Comments Chloride Lvl (test code = Chloride Lvl) 100 95-109 [facility]2015-12-14 15:29:00 Test Item Value Reference Range Interpretation Comments BUN (test code = BUN) 13 7-22 [facility]2015-12-14 15:29:00 Test Item Value Reference Range Interpretation Comments Glucose Lvl (test code = Glucose Lvl) 89 70-99 [facility]2015-12-14 15:29:00 Test Item Value Reference Range Interpretation Comments Potassium Lvl (test code = Potassium 4.2 3.5-5.1 Lvl) [facility]2015-12-14 15:29:00 Test Item Value Reference Range Interpretation Comments Sodium Lvl (test code = Sodium Lvl) 134 135-145 [facility]2015-12-14 15:29:00 Test Item Value Reference Range Interpretation Comments AGAP (test code = AGAP) 11.2 10.0-20.0 [facility] HeightsVcijxysNGXXVLDZFJ5375-20-41 15:29:00 Test Item Value Reference Range Interpretation Comments MPV (test code = MPV) 9.2 7.4-10.4 [facility] HeightsSfacnsvFNOBZCSUTD5349-91-95 15:29:00 Test Item Value Reference Range Interpretation Comments Platelet (test code = Platelet) 307 133-450 [facility] HeightsYcbjdsmLWFOTLJTQI0284-53-28 15:29:00 Test Item Value Reference Range Interpretation Comments MCH (test code = MCH) 24.3 pg 27.0-31.0 [facility] HeightsCmitulyEBYSWJTKHM1331-60-35 15:29:00 Test Item Value Reference Range Interpretation Comments RDW (test code = RDW) 15.7 11.5-14.5 [facility] HeightsJeblzwmPTBRTQGJUK8345-72-13 15:29:00 Test Item Value Reference Range Interpretation Comments MCHC (test code = MCHC) 31.2 32.0-36.0 [facility] HeightsGppklyxNEWBZNMSYH1560-60-40 15:29:00 Test Item Value Reference Range Interpretation Comments MCV (test code = MCV) 78.0 80.0-98.0 [facility] HeightsTioeaitRZWWOLDXJB2986-13-57 15:29:00 Test Item Value Reference Range Interpretation Comments WBC (test code = WBC) 8.6 3.7-10.4 [facility] HeightsMuarehrDWUGSGBELS2227-07-42 15:29:00 Test Item Value Reference Range Interpretation Comments Hgb (test code = Hgb) 13.2 12.0-16.0 [facility] HeightsCdrarriQKJSJXDMOY3927-58-24 15:29:00 Test Item Value Reference Range Interpretation Comments RBC (test code = RBC) 5.41 4.20-5.40 [facility] HeightsYovbeplPQZASIKAZW1303-88-96 15:29:00 Test Item Value Reference Range Interpretation Comments Hct (test code = Hct) 42.1 36.0-48.0 [facility] HeightsRinqdfwNVNVLNUGKD5059-18-59 15:29:00 Test Item Value Reference Range Interpretation Comments Lymphocytes # (test code = Lymphocytes 3.2 1.0-5.5 #) [facility] HeightsNghhlbyUCJHFZRSFV4504-39-86 15:29:00 Test Item Value Reference Range Interpretation Comments Eosinophils # (test code 0.1 See_Comment [A utomated message] The = Eosinophils #) system whic h generated this result tra nsmitted reference range : <=0.5. The reference r kat was not used to int erpret this result as normal/abnormal . [facility] HeightsAmodcorWYKLKABWOW9704-62-08 15:29:00 Test Item Value Reference Range Interpretation Comments Monocytes # (test code 0.8 See_Comment [Aut omated message] The = Monocytes #) system which generated this result tra nsmitted reference range : <=0.8. The reference r kat was not used to int erpret this result as normal/abnormal . [facility] HeightsGvxbpviZSMBYOXIZO7766-03-87 15:29:00 Test Item Value Reference Range Interpretation Comments Basophils (test code = 0.7 See_Comment [Aut omated message] The Basophils) system which ge nerated this result tra nsmitted reference range : <=1.0. The reference r kat was not used to int erpret this result as normal/abnormal . [facility] HeightsUcagyznBYLFECUVUQ9781-77-56 15:29:00 Test Item Value Reference Range Interpretation Comments Segs-Bands # (test code = Segs-Bands #) 4.4 1.5-8.1 [facility] HeightsZyiewgwCDTGQJRWOS8969-52-35 15:29:00 Test Item Value Reference Range Interpretation Comments Eosinophils (test code = 1.2 See_Comment [A utomated message] The Eosinophils) system which ge nerated this result tra nsmitted reference range : <=4.0. The reference r kat was not used to int erpret this result as normal/abnormal . [facility] HeightsXltfsmiSLOYHZEQOE5658-51-73 15:29:00 Test Item Value Reference Range Interpretation Comments Lymphocytes (test code = Lymphocytes) 37.4 20.0-40.0 [facility] HeightsGcwrjdcDPQAVXBYLY3330-22-67 15:29:00 Test Item Value Reference Range Interpretation Comments Monocytes (test code = Monocytes) 8.9 2.0-12.0 [facility] HeightsHifalbzIYBKLQEUPK9646-56-61 15:29:00 Test Item Value Reference Range Interpretation Comments Segs (test code = Segs) 51.8 45.0-75.0 [facility] HeightsEyiurniRPTOYDVZZD8654-24-19 15:29:00 Test Item Value Reference Range Interpretation Comments Microcyte (test code = 1+ *ABN*(08/12/15 Microcyte) 9:29 AM) [facility] 15:29:00 Test Item Value Reference Range Interpretation Comments Basophils # (test code 0.1 See_Comment [Aut omated message] The = Basophils #) system which generated this result tra nsmitted reference range : <=0.2. The reference r kat was not used to int erpret this result as normal/abnormal . [facility] RFZL5988-11-01 15:29:00 Test Item Value Reference Range Interpretation Comments U Preg (test code = U Negative (08/12/15 9:29 Preg) AM) [facility] CNNXZ1622-30-84 15:29:00 Test Item Value Reference Range Interpretation Comments eGFR (test code = eGFR) 101 [facility]2015-12-14 15:29:00 Test Item Value Reference Range Interpretation Comments Creatinine Lvl (test code = Creatinine 0.81 0.50-1.40 Lvl) [facility]2015-12-14 15:29:00 Test Item Value Reference Range Interpretation Comments CO2 (test code = CO2) 27 24-32 [facility]2015-12-14 15:29:00 Test Item Value Reference Range Interpretation Comments Calcium Lvl (test code = Calcium Lvl) 9.7 8.5-10.5 [facility]2015-12-14 15:29:00 Test Item Value Reference Range Interpretation Comments Chloride Lvl (test code = Chloride Lvl) 100 95-109 [facility]2015-12-14 15:29:00 Test Item Value Reference Range Interpretation Comments BUN (test code = BUN) 13 7-22 [facility]2015-12-14 15:29:00 Test Item Value Reference Range Interpretation Comments Glucose Lvl (test code = Glucose Lvl) 89 70-99 [facility]2015-12-14 15:29:00 Test Item Value Reference Range Interpretation Comments Potassium Lvl (test code = Potassium 4.2 3.5-5.1 Lvl) [facility]2015-12-14 15:29:00 Test Item Value Reference Range Interpretation Comments Sodium Lvl (test code = Sodium Lvl) 134 135-145 [facility]2015-12-14 15:29:00 Test Item Value Reference Range Interpretation Comments AGAP (test code = AGAP) 11.2 10.0-20.0 [facility] HeightsZnrovusZXTDIZXRPQ8112-52-10 15:29:00 Test Item Value Reference Range Interpretation Comments MPV (test code = MPV) 9.2 7.4-10.4 [facility]QpqbuvlNSNMJQRQIB6219-75-34 15:29:00 Test Item Value Reference Range Interpretation Comments Platelet (test code = Platelet) 307 133-450 [facility] HeightsNvxjzfsJAXWNANEUJ3590-57-88 15:29:00 Test Item Value Reference Range Interpretation Comments MCH (test code = MCH) 24.3 pg 27.0-31.0 [facility] HeightsPnobeahORRCOORNRA6940-02-94 15:29:00 Test Item Value Reference Range Interpretation Comments RDW (test code = RDW) 15.7 11.5-14.5 [facility] HeightsSfdjerxLUBPNCPNOW4254-42-11 15:29:00 Test Item Value Reference Range Interpretation Comments MCHC (test code = MCHC) 31.2 32.0-36.0 [facility] HeightsMrrgiquCGUWBGQUDL3410-30-18 15:29:00 Test Item Value Reference Range Interpretation Comments MCV (test code = MCV) 78.0 80.0-98.0 [facility] HeightsWbnjtrlQPNSPYVGDM4341-89-42 15:29:00 Test Item Value Reference Range Interpretation Comments WBC (test code = WBC) 8.6 3.7-10.4 [facility] HeightsDctikzhWSMJWHDQIN6371-08-28 15:29:00 Test Item Value Reference Range Interpretation Comments Hgb (test code = Hgb) 13.2 12.0-16.0 [facility] HeightsJjyymrmYVAJBWAGXE0695-57-05 15:29:00 Test Item Value Reference Range Interpretation Comments RBC (test code = RBC) 5.41 4.20-5.40 [facility] HeightsNjcmtoeVPGHNLUOWP9241-22-02 15:29:00 Test Item Value Reference Range Interpretation Comments Hct (test code = Hct) 42.1 36.0-48.0 [facility] HeightsOhjsbzwOSZLAQAZRG0608-60-10 15:29:00 Test Item Value Reference Range Interpretation Comments Lymphocytes # (test code = Lymphocytes 3.2 1.0-5.5 #) [facility] HeightsHfvqkbpGBERHHETKX3720-82-66 15:29:00 Test Item Value Reference Range Interpretation Comments Eosinophils # (test code 0.1 See_Comment [A utomated message] The = Eosinophils #) system whic h generated this result tra nsmitted reference range : <=0.5. The reference r kat was not used to int erpret this result as normal/abnormal . [facility] HeightsAiepogjZJZHBOMSOR7154-96-81 15:29:00 Test Item Value Reference Range Interpretation Comments Monocytes # (test code 0.8 See_Comment [Aut omated message] The = Monocytes #) system which generated this result tra nsmitted reference range : <=0.8. The reference r kat was not used to int erpret this result as normal/abnormal . [facility] HeightsCgmpynyKUYDHFYAOL6395-09-62 15:29:00 Test Item Value Reference Range Interpretation Comments Basophils (test code = 0.7 See_Comment [Aut omated message] The Basophils) system which ge nerated this result tra nsmitted reference range : <=1.0. The reference r kat was not used to int erpret this result as normal/abnormal . [facility] HeightsNybbjipDYXIYJQMME3626-43-52 15:29:00 Test Item Value Reference Range Interpretation Comments Segs-Bands # (test code = Segs-Bands #) 4.4 1.5-8.1 [facility] HeightsLpnrmioUBLCMZYDVA3320-65-09 15:29:00 Test Item Value Reference Range Interpretation Comments Eosinophils (test code = 1.2 See_Comment [A utomated message] The Eosinophils) system which ge nerated this result tra nsmitted reference range : <=4.0. The reference r kat was not used to int erpret this result as normal/abnormal . [facility] HeightsVkbdqfxFZYPCACLCW5746-72-25 15:29:00 Test Item Value Reference Range Interpretation Comments Lymphocytes (test code = Lymphocytes) 37.4 20.0-40.0 [facility] HeightsSjabibySLJYFWMKEM1915-04-01 15:29:00 Test Item Value Reference Range Interpretation Comments Monocytes (test code = Monocytes) 8.9 2.0-12.0 [facility] HeightsAiactpmXOUQGNKXCP8858-30-74 15:29:00 Test Item Value Reference Range Interpretation Comments Segs (test code = Segs) 51.8 45.0-75.0 [facility] HeightsVxlhkdkBQHFUYGAVN0273-98-19 15:29:00 Test Item Value Reference Range Interpretation Comments Microcyte (test code = 1+ *ABN*(08/12/15 Microcyte) 9:29 AM) [facility]37[facility] 15:29:00 Test Item Value Reference Range Interpretation Comments Basophils # (test code 0.1 See_Comment [Aut omated message] The = Basophils #) system which generated this result tra nsmitted reference range : <=0.2. The reference r kat was not used to int erpret this result as normal/abnormal . [facility] [id number] 15:29:00 Test Item Value Reference Range Interpretation Comments U Preg (test code = U Negative (08/12/15 9:29 Preg) AM) [facility] [id number] 15:29:00 Test Item Value Reference Range Interpretation Comments eGFR (test code = eGFR) 101 [facility]2015-12-14 15:29:00 Test Item Value Reference Range Interpretation Comments Creatinine Lvl (test code = Creatinine 0.81 0.50-1.40 Lvl) [facility]2015-12-14 15:29:00 Test Item Value Reference Range Interpretation Comments CO2 (test code = CO2) 27 24-32 [facility]2015-12-14 15:29:00 Test Item Value Reference Range Interpretation Comments Calcium Lvl (test code = Calcium Lvl) 9.7 8.5-10.5 [facility]2015-12-14 15:29:00 Test Item Value Reference Range Interpretation Comments Chloride Lvl (test code = Chloride Lvl) 100 95-109 [facility]2015-12-14 15:29:00 Test Item Value Reference Range Interpretation Comments BUN (test code = BUN) 13 7-22 [facility]2015-12-14 15:29:00 Test Item Value Reference Range Interpretation Comments Glucose Lvl (test code = Glucose Lvl) 89 70-99 [facility]2015-12-14 15:29:00 Test Item Value Reference Range Interpretation Comments Potassium Lvl (test code = Potassium 4.2 3.5-5.1 Lvl) [facility]2015-12-14 15:29:00 Test Item Value Reference Range Interpretation Comments Sodium Lvl (test code = Sodium Lvl) 134 135-145 [facility]2015-12-14 15:29:00 Test Item Value Reference Range Interpretation Comments AGAP (test code = AGAP) 11.2 10.0-20.0 [facility] HeightsCqgfptsSXONABGVUF1491-22-01 15:29:00 Test Item Value Reference Range Interpretation Comments MPV (test code = MPV) 9.2 7.4-10.4 [facility] HeightsZykkpjpZXSJSGPZBB3549-69-71 15:29:00 Test Item Value Reference Range Interpretation Comments Platelet (test code = Platelet) 307 133-450 [facility] HeightsZylusazDQIOHCSBTR8343-01-23 15:29:00 Test Item Value Reference Range Interpretation Comments MCH (test code = MCH) 24.3 pg 27.0-31.0 [facility] HeightsKbtvlhtWCPCRJZTND5691-81-24 15:29:00 Test Item Value Reference Range Interpretation Comments RDW (test code = RDW) 15.7 11.5-14.5 [facility] HeightsRijyiupHSKNZZTTWK7869-63-73 15:29:00 Test Item Value Reference Range Interpretation Comments MCHC (test code = MCHC) 31.2 32.0-36.0 [facility] HeightsWnwndxwEIDWUSGMFK6455-70-38 15:29:00 Test Item Value Reference Range Interpretation Comments MCV (test code = MCV) 78.0 80.0-98.0 [facility] HeightsSyqdlcfDYELZKLSON9531-01-45 15:29:00 Test Item Value Reference Range Interpretation Comments WBC (test code = WBC) 8.6 3.7-10.4 [facility] HeightsQampscgPCTHMIEKTF2898-00-08 15:29:00 Test Item Value Reference Range Interpretation Comments Hgb (test code = Hgb) 13.2 12.0-16.0 [facility] HeightsJwfpphuUPQJPVQLKM8001-60-87 15:29:00 Test Item Value Reference Range Interpretation Comments RBC (test code = RBC) 5.41 4.20-5.40 [facility] HeightsBbsqsdrCOEEODDUKA7026-50-75 15:29:00 Test Item Value Reference Range Interpretation Comments Hct (test code = Hct) 42.1 36.0-48.0 [facility] HeightsTsjkutpBHBXCCRKPZ6868-47-88 15:29:00 Test Item Value Reference Range Interpretation Comments Lymphocytes # (test code = Lymphocytes 3.2 1.0-5.5 #) [facility] HeightsFwmbbqrMUDDEHJMEH3489-22-74 15:29:00 Test Item Value Reference Range Interpretation Comments Eosinophils # (test code 0.1 See_Comment [A utomated message] The = Eosinophils #) system whic h generated this result tra nsmitted reference range : <=0.5. The reference r kat was not used to int erpret this result as normal/abnormal . [facility] HeightsXfazwwvFMQNYCZAZK0004-36-84 15:29:00 Test Item Value Reference Range Interpretation Comments Monocytes # (test code 0.8 See_Comment [Aut omated message] The = Monocytes #) system which generated this result tra nsmitted reference range : <=0.8. The reference r kat was not used to int erpret this result as normal/abnormal . [facility] HeightsVbwmhgbHSKRBEQJXL1609-26-26 15:29:00 Test Item Value Reference Range Interpretation Comments Basophils (test code = 0.7 See_Comment [Aut omated message] The Basophils) system which ge nerated this result tra nsmitted reference range : <=1.0. The reference r kat was not used to int erpret this result as normal/abnormal . [facility] HeightsRcnqxauFGTVTRAXQX6163-96-88 15:29:00 Test Item Value Reference Range Interpretation Comments Segs-Bands # (test code = Segs-Bands #) 4.4 1.5-8.1 [facility] HeightsOdvcglqKPMDEUWZVY8114-41-95 15:29:00 Test Item Value Reference Range Interpretation Comments Eosinophils (test code = 1.2 See_Comment [A utomated message] The Eosinophils) system which ge nerated this result tra nsmitted reference range : <=4.0. The reference r kat was not used to int erpret this result as normal/abnormal . [facility] HeightsKktfoxaMYFTYKGSBK6847-92-94 15:29:00 Test Item Value Reference Range Interpretation Comments Lymphocytes (test code = Lymphocytes) 37.4 20.0-40.0 [facility] HeightsCnkqhpdKDNHMNNVYN5522-38-31 15:29:00 Test Item Value Reference Range Interpretation Comments Monocytes (test code = Monocytes) 8.9 2.0-12.0 [facility] HeightsLdbtjfkEAKGOKTXXV1128-73-36 15:29:00 Test Item Value Reference Range Interpretation Comments Segs (test code = Segs) 51.8 45.0-75.0 [facility] HeightsZrtwdxbUMWASQVGUM6779-82-63 15:29:00 Test Item Value Reference Range Interpretation Comments Microcyte (test code = 1+ *ABN*(08/12/15 Microcyte) 9:29 AM) [facility]ZksfnmqLZJTTYOLSA0923-76-49 15:29:00 Test Item Value Reference Range Interpretation Comments Basophils # (test code 0.1 See_Comment [Aut omated message] The = Basophils #) system which generated this result tra nsmitted reference range : <=0.2. The reference r kat was not used to int erpret this result as normal/abnormal . [facility] [id number] 15:29:00 Test Item Value Reference Range Interpretation Comments U Preg (test code = U Negative (08/12/15 9:29 Preg) AM) [facility] [id number] 15:29:00 Test Item Value Reference Range Interpretation Comments eGFR (test code = eGFR) 101 [facility]2015-12-14 15:29:00 Test Item Value Reference Range Interpretation Comments Creatinine Lvl (test code = Creatinine 0.81 0.50-1.40 Lvl) [facility]2015-12-14 15:29:00 Test Item Value Reference Range Interpretation Comments CO2 (test code = CO2) 27 24-32 [facility]2015-12-14 15:29:00 Test Item Value Reference Range Interpretation Comments Calcium Lvl (test code = Calcium Lvl) 9.7 8.5-10.5 [facility]2015-12-14 15:29:00 Test Item Value Reference Range Interpretation Comments Chloride Lvl (test code = Chloride Lvl) 100 95-109 [facility]2015-12-14 15:29:00 Test Item Value Reference Range Interpretation Comments BUN (test code = BUN) 13 7-22 [facility]2015-12-14 15:29:00 Test Item Value Reference Range Interpretation Comments Glucose Lvl (test code = Glucose Lvl) 89 70-99 [facility]2015-12-14 15:29:00 Test Item Value Reference Range Interpretation Comments Potassium Lvl (test code = Potassium 4.2 3.5-5.1 Lvl) [facility]2015-12-14 15:29:00 Test Item Value Reference Range Interpretation Comments Sodium Lvl (test code = Sodium Lvl) 134 135-145 [facility]2015-12-14 15:29:00 Test Item Value Reference Range Interpretation Comments AGAP (test code = AGAP) 11.2 10.0-20.0 [facility] HeightsDkyhqvqKMSEWBUGJS8527-47-61 15:29:00 Test Item Value Reference Range Interpretation Comments MPV (test code = MPV) 9.2 7.4-10.4 [facility] HeightsFsukuvgUFREVRUKVL2900-24-34 15:29:00 Test Item Value Reference Range Interpretation Comments Platelet (test code = Platelet) 307 133-450 [facility] HeightsDzwemgpLYRZFTRQEG0743-74-98 15:29:00 Test Item Value Reference Range Interpretation Comments MCH (test code = MCH) 24.3 pg 27.0-31.0 [facility] HeightsMcanlptUNFXHHOIXJ0924-52-91 15:29:00 Test Item Value Reference Range Interpretation Comments RDW (test code = RDW) 15.7 11.5-14.5 [facility] HeightsSrgzmtfKBNVRVGOCH7413-66-31 15:29:00 Test Item Value Reference Range Interpretation Comments MCHC (test code = MCHC) 31.2 32.0-36.0 [facility] HeightsGqeihhqXMGSRKZVTG3247-29-70 15:29:00 Test Item Value Reference Range Interpretation Comments MCV (test code = MCV) 78.0 80.0-98.0 [facility] HeightsZxkjhfpHGAIBRNVNK4899-40-26 15:29:00 Test Item Value Reference Range Interpretation Comments WBC (test code = WBC) 8.6 3.7-10.4 [facility] HeightsWvhceznYWAUXVUNID9474-90-02 15:29:00 Test Item Value Reference Range Interpretation Comments Hgb (test code = Hgb) 13.2 12.0-16.0 [facility] HeightsYcxjbeqUJPPTLRFZK1000-22-10 15:29:00 Test Item Value Reference Range Interpretation Comments RBC (test code = RBC) 5.41 4.20-5.40 [facility] HeightsJifueqvBDVAATSOBS9024-68-74 15:29:00 Test Item Value Reference Range Interpretation Comments Hct (test code = Hct) 42.1 36.0-48.0 [facility] HeightsRrilpppFPRDXPDPTT8537-27-96 15:29:00 Test Item Value Reference Range Interpretation Comments Lymphocytes # (test code = Lymphocytes 3.2 1.0-5.5 #) [facility] HeightsPjruzguYPMANFKMTX5739-56-73 15:29:00 Test Item Value Reference Range Interpretation Comments Eosinophils # (test code 0.1 See_Comment [A utomated message] The = Eosinophils #) system whic h generated this result tra nsmitted reference range : <=0.5. The reference r kat was not used to int erpret this result as normal/abnormal . [facility] HeightsGobfrirGOOYGORDME4561-87-91 15:29:00 Test Item Value Reference Range Interpretation Comments Monocytes # (test code 0.8 See_Comment [Aut omated message] The = Monocytes #) system which generated this result tra nsmitted reference range : <=0.8. The reference r kat was not used to int erpret this result as normal/abnormal . [facility] HeightsRcewidqKIWQGFQBPD4551-88-81 15:29:00 Test Item Value Reference Range Interpretation Comments Basophils (test code = 0.7 See_Comment [Aut omated message] The Basophils) system which ge nerated this result tra nsmitted reference range : <=1.0. The reference r kat was not used to int erpret this result as normal/abnormal . [facility] HeightsNsvtfyeTURZOPYPLY5075-54-19 15:29:00 Test Item Value Reference Range Interpretation Comments Segs-Bands # (test code = Segs-Bands #) 4.4 1.5-8.1 [facility] HeightsDraqchxTDFIJDVMEB1770-95-26 15:29:00 Test Item Value Reference Range Interpretation Comments Eosinophils (test code = 1.2 See_Comment [A utomated message] The Eosinophils) system which ge nerated this result tra nsmitted reference range : <=4.0. The reference r kat was not used to int erpret this result as normal/abnormal . [facility] HeightsKlhqmyfBXWJUJVNOP1923-13-85 15:29:00 Test Item Value Reference Range Interpretation Comments Lymphocytes (test code = Lymphocytes) 37.4 20.0-40.0 [facility] HeightsKihxqonKKMQKCALOC1953-33-86 15:29:00 Test Item Value Reference Range Interpretation Comments Monocytes (test code = Monocytes) 8.9 2.0-12.0 [facility] HeightsOpwtfuiPMKAKHBGRM9191-26-33 15:29:00 Test Item Value Reference Range Interpretation Comments Segs (test code = Segs) 51.8 45.0-75.0 [facility] HeightsPriakgaMHXHGNPTGS9961-00-11 15:29:00 Test Item Value Reference Range Interpretation Comments Microcyte (test code = 1+ *ABN*(08/12/15 Microcyte) 9:29 AM) [facility]WskqyzqEMYGEBVRKJ8884-67-28 15:29:00 Test Item Value Reference Range Interpretation Comments Basophils # (test code 0.1 See_Comment [Aut omated message] The = Basophils #) system which generated this result tra nsmitted reference range : <=0.2. The reference r kat was not used to int erpret this result as normal/abnormal . [facility] [id number] 15:29:00 Test Item Value Reference Range Interpretation Comments U Preg (test code = U Negative (08/12/15 9:29 Preg) AM) [facility] XLRNU1682-12-24 15:29:00 Test Item Value Reference Range Interpretation Comments eGFR (test code = eGFR) 101 [facility]2015-12-14 15:29:00 Test Item Value Reference Range Interpretation Comments Creatinine Lvl (test code = Creatinine 0.81 0.50-1.40 Lvl) [facility]2015-12-14 15:29:00 Test Item Value Reference Range Interpretation Comments CO2 (test code = CO2) 27 24-32 [facility]2015-12-14 15:29:00 Test Item Value Reference Range Interpretation Comments Calcium Lvl (test code = Calcium Lvl) 9.7 8.5-10.5 [facility]2015-12-14 15:29:00 Test Item Value Reference Range Interpretation Comments Chloride Lvl (test code = Chloride Lvl) 100 95-109 [facility]2015-12-14 15:29:00 Test Item Value Reference Range Interpretation Comments BUN (test code = BUN) 13 7-22 [facility]2015-12-14 15:29:00 Test Item Value Reference Range Interpretation Comments Glucose Lvl (test code = Glucose Lvl) 89 70-99 [facility]2015-12-14 15:29:00 Test Item Value Reference Range Interpretation Comments Potassium Lvl (test code = Potassium 4.2 3.5-5.1 Lvl) [facility]2015-12-14 15:29:00 Test Item Value Reference Range Interpretation Comments Sodium Lvl (test code = Sodium Lvl) 134 135-145 [facility]2015-12-14 15:29:00 Test Item Value Reference Range Interpretation Comments AGAP (test code = AGAP) 11.2 10.0-20.0 [facility] HeightsAalpjftTSCTCQCYHG0237-42-04 15:29:00 Test Item Value Reference Range Interpretation Comments MPV (test code = MPV) 9.2 7.4-10.4 [facility] HeightsWrctvczISTYAZKDUH6172-53-08 15:29:00 Test Item Value Reference Range Interpretation Comments Platelet (test code = Platelet) 307 133-450 [facility] HeightsTzoyvoeQVATRKACIG7550-48-72 15:29:00 Test Item Value Reference Range Interpretation Comments MCH (test code = MCH) 24.3 pg 27.0-31.0 [facility] HeightsJyrkwnlYNRIODPENG5432-54-57 15:29:00 Test Item Value Reference Range Interpretation Comments RDW (test code = RDW) 15.7 11.5-14.5 [facility] HeightsKtzzbgfWHOXNKXNJB5737-74-45 15:29:00 Test Item Value Reference Range Interpretation Comments MCHC (test code = MCHC) 31.2 32.0-36.0 [facility] HeightsQcwrnqfFHEDHEVQRO5473-42-24 15:29:00 Test Item Value Reference Range Interpretation Comments MCV (test code = MCV) 78.0 80.0-98.0 [facility] HeightsDtaeofvKPQFPKLAVI5466-79-55 15:29:00 Test Item Value Reference Range Interpretation Comments WBC (test code = WBC) 8.6 3.7-10.4 [facility] HeightsPcbxputGSDFTORDPM3705-38-20 15:29:00 Test Item Value Reference Range Interpretation Comments Hgb (test code = Hgb) 13.2 12.0-16.0 [facility] HeightsFuvytdsQRLLEOYKRV4188-37-93 15:29:00 Test Item Value Reference Range Interpretation Comments RBC (test code = RBC) 5.41 4.20-5.40 [facility] HeightsQffxflvDEWLEFRORU4205-93-73 15:29:00 Test Item Value Reference Range Interpretation Comments Hct (test code = Hct) 42.1 36.0-48.0 [facility] HeightsKvcmygxXUWETDDLGR9205-35-88 15:29:00 Test Item Value Reference Range Interpretation Comments Lymphocytes # (test code = Lymphocytes 3.2 1.0-5.5 #) [facility] HeightsYxahiuaVUKISTJRCA5971-59-19 15:29:00 Test Item Value Reference Range Interpretation Comments Eosinophils # (test code 0.1 See_Comment [A utomated message] The = Eosinophils #) system whic h generated this result tra nsmitted reference range : <=0.5. The reference r kat was not used to int erpret this result as normal/abnormal . [facility] HeightsHqsepffVZSIYVNATQ8656-35-60 15:29:00 Test Item Value Reference Range Interpretation Comments Monocytes # (test code 0.8 See_Comment [Aut omated message] The = Monocytes #) system which generated this result tra nsmitted reference range : <=0.8. The reference r kat was not used to int erpret this result as normal/abnormal . [facility] HeightsMprwivxMEDKKFUDFB4635-70-77 15:29:00 Test Item Value Reference Range Interpretation Comments Basophils (test code = 0.7 See_Comment [Aut omated message] The Basophils) system which ge nerated this result tra nsmitted reference range : <=1.0. The reference r kat was not used to int erpret this result as normal/abnormal . [facility] HeightsUmrezrcNPKEMFERIC4861-26-22 15:29:00 Test Item Value Reference Range Interpretation Comments Segs-Bands # (test code = Segs-Bands #) 4.4 1.5-8.1 [facility] HeightsUokzoxcZORAWEILHH4328-73-81 15:29:00 Test Item Value Reference Range Interpretation Comments Eosinophils (test code = 1.2 See_Comment [A utomated message] The Eosinophils) system which ge nerated this result tra nsmitted reference range : <=4.0. The reference r kat was not used to int erpret this result as normal/abnormal . [facility] HeightsUxemgqaHXTRLBBODY6202-94-99 15:29:00 Test Item Value Reference Range Interpretation Comments Lymphocytes (test code = Lymphocytes) 37.4 20.0-40.0 [facility] HeightsKxruoynWSKDQWMEVL0181-13-92 15:29:00 Test Item Value Reference Range Interpretation Comments Monocytes (test code = Monocytes) 8.9 2.0-12.0 [facility] HeightsWgwygszWEBWJGEQOH6255-56-69 15:29:00 Test Item Value Reference Range Interpretation Comments Segs (test code = Segs) 51.8 45.0-75.0 [facility] HeightsPdersqbBENNVXZYKS2337-05-36 15:29:00 Test Item Value Reference Range Interpretation Comments Microcyte (test code = 1+ *ABN*(12/14/15 Microcyte) 9:29 AM) [facility]VhloutxSTAFMMTVGW9474-49-50 15:29:00 Test Item Value Reference Range Interpretation Comments Basophils # (test code 0.1 See_Comment [Aut omated message] The = Basophils #) system which generated this result tra nsmitted reference range : <=0.2. The reference r kat was not used to int erpret this result as normal/abnormal . [facility] [id number] 15:29:00 Test Item Value Reference Range Interpretation Comments U Preg (test code = U Negative (08/12/15 9:29 Preg) AM) [facility] SBDMD5649-94-28 15:29:00 Test Item Value Reference Range Interpretation Comments eGFR (test code = eGFR) 101 [facility]2015-12-14 15:29:00 Test Item Value Reference Range Interpretation Comments Creatinine Lvl (test code = Creatinine 0.81 0.50-1.40 Lvl) [facility]2015-12-14 15:29:00 Test Item Value Reference Range Interpretation Comments CO2 (test code = CO2) 27 24-32 [facility]2015-12-14 15:29:00 Test Item Value Reference Range Interpretation Comments Calcium Lvl (test code = Calcium Lvl) 9.7 8.5-10.5 [facility]2015-12-14 15:29:00 Test Item Value Reference Range Interpretation Comments Chloride Lvl (test code = Chloride Lvl) 100 95-109 [facility]2015-12-14 15:29:00 Test Item Value Reference Range Interpretation Comments BUN (test code = BUN) 13 7-22 [facility]2015-12-14 15:29:00 Test Item Value Reference Range Interpretation Comments Glucose Lvl (test code = Glucose Lvl) 89 70-99 [facility]2015-12-14 15:29:00 Test Item Value Reference Range Interpretation Comments Potassium Lvl (test code = Potassium 4.2 3.5-5.1 Lvl) [facility]2015-12-14 15:29:00 Test Item Value Reference Range Interpretation Comments Sodium Lvl (test code = Sodium Lvl) 134 135-145 [facility]2015-12-14 15:29:00 Test Item Value Reference Range Interpretation Comments AGAP (test code = AGAP) 11.2 10.0-20.0 [facility]OjsvgohSXLDPCFQFF6757-78-24 15:29:00 Test Item Value Reference Range Interpretation Comments MPV (test code = MPV) 9.2 7.4-10.4 [facility] HeightsZmxatmsDHDRBZTAVO7931-53-93 15:29:00 Test Item Value Reference Range Interpretation Comments Platelet (test code = Platelet) 307 133-450 [facility] HeightsUmfazucIZORCRRYBV2781-03-24 15:29:00 Test Item Value Reference Range Interpretation Comments MCH (test code = MCH) 24.3 pg 27.0-31.0 [facility] HeightsGvpegrhYRJXVHFXOV9367-56-84 15:29:00 Test Item Value Reference Range Interpretation Comments RDW (test code = RDW) 15.7 11.5-14.5 [facility] HeightsXdivjeeZMJIDYDKJI3262-54-67 15:29:00 Test Item Value Reference Range Interpretation Comments MCHC (test code = MCHC) 31.2 32.0-36.0 [facility] HeightsGmlxbtoTLMHEONLBC1992-94-41 15:29:00 Test Item Value Reference Range Interpretation Comments MCV (test code = MCV) 78.0 80.0-98.0 [facility] HeightsCrgodaiQHJJPNDBTX5335-81-02 15:29:00 Test Item Value Reference Range Interpretation Comments WBC (test code = WBC) 8.6 3.7-10.4 [facility] HeightsYjnkmfjFLDFJHURVP4577-80-21 15:29:00 Test Item Value Reference Range Interpretation Comments Hgb (test code = Hgb) 13.2 12.0-16.0 [facility] HeightsAsarnuyTVVEDZLVQQ7405-51-89 15:29:00 Test Item Value Reference Range Interpretation Comments RBC (test code = RBC) 5.41 4.20-5.40 [facility] HeightsGwfushbGFRPSQUWBO1419-23-17 15:29:00 Test Item Value Reference Range Interpretation Comments Hct (test code = Hct) 42.1 36.0-48.0 [facility] HeightsHfvihfsIEFYVBGOAT9398-93-24 15:29:00 Test Item Value Reference Range Interpretation Comments Lymphocytes # (test code = Lymphocytes 3.2 1.0-5.5 #) [facility] HeightsEsuyvbcDPOLARPHXM4512-49-23 15:29:00 Test Item Value Reference Range Interpretation Comments Eosinophils # (test code 0.1 See_Comment [A utomated message] The = Eosinophils #) system whic h generated this result tra nsmitted reference range : <=0.5. The reference r kat was not used to int erpret this result as normal/abnormal . [facility] HeightsDpflorvAWQLTWNEJP1963-63-18 15:29:00 Test Item Value Reference Range Interpretation Comments Monocytes # (test code 0.8 See_Comment [Aut omated message] The = Monocytes #) system which generated this result tra nsmitted reference range : <=0.8. The reference r kat was not used to int erpret this result as normal/abnormal . [facility] HeightsEmuuerpQJMVWSPHWM8193-16-24 15:29:00 Test Item Value Reference Range Interpretation Comments Basophils (test code = 0.7 See_Comment [Aut omated message] The Basophils) system which ge nerated this result tra nsmitted reference range : <=1.0. The reference r kat was not used to int erpret this result as normal/abnormal . [facility] HeightsLimozyyGLMFNWGZLQ2474-52-36 15:29:00 Test Item Value Reference Range Interpretation Comments Segs-Bands # (test code = Segs-Bands #) 4.4 1.5-8.1 [facility] HeightsIcvpwmnQYAXHITXBB2152-66-86 15:29:00 Test Item Value Reference Range Interpretation Comments Eosinophils (test code = 1.2 See_Comment [A utomated message] The Eosinophils) system which ge nerated this result tra nsmitted reference range : <=4.0. The reference r kat was not used to int erpret this result as normal/abnormal . [facility] HeightsYswdoqsZIKVWVRUCL6139-26-34 15:29:00 Test Item Value Reference Range Interpretation Comments Lymphocytes (test code = Lymphocytes) 37.4 20.0-40.0 [facility] HeightsHmfsefkWIIRKZMUDB5474-64-94 15:29:00 Test Item Value Reference Range Interpretation Comments Monocytes (test code = Monocytes) 8.9 2.0-12.0 [facility] HeightsZdfubhgEHQLXCTYZA2731-00-04 15:29:00 Test Item Value Reference Range Interpretation Comments Segs (test code = Segs) 51.8 45.0-75.0 [facility] HeightsDwfaqztHVSFYBKSBL3392-86-39 15:29:00 Test Item Value Reference Range Interpretation Comments Microcyte (test code = 1+ *ABN*(08/12/15 Microcyte) 9:29 AM) [facility] 15:29:00 Test Item Value Reference Range Interpretation Comments Basophils # (test code 0.1 See_Comment [Aut omated message] The = Basophils #) system which generated this result tra nsmitted reference range : <=0.2. The reference r kat was not used to int erpret this result as normal/abnormal . [facility] [id number] 15:29:00 Test Item Value Reference Range Interpretation Comments U Preg (test code = U Negative (08/12/15 9:29 Preg) AM) [facility] [id number] 15:29:00 Test Item Value Reference Range Interpretation Comments eGFR (test code = eGFR) 101 [facility]2015-12-14 15:29:00 Test Item Value Reference Range Interpretation Comments Creatinine Lvl (test code = Creatinine 0.81 0.50-1.40 Lvl) [facility]2015-12-14 15:29:00 Test Item Value Reference Range Interpretation Comments CO2 (test code = CO2) 27 24-32 [facility]2015-12-14 15:29:00 Test Item Value Reference Range Interpretation Comments Calcium Lvl (test code = Calcium Lvl) 9.7 8.5-10.5 [facility]2015-12-14 15:29:00 Test Item Value Reference Range Interpretation Comments Chloride Lvl (test code = Chloride Lvl) 100 95-109 [facility]2015-12-14 15:29:00 Test Item Value Reference Range Interpretation Comments BUN (test code = BUN) 13 7-22 [facility]2015-12-14 15:29:00 Test Item Value Reference Range Interpretation Comments Glucose Lvl (test code = Glucose Lvl) 89 70-99 [facility]2015-12-14 15:29:00 Test Item Value Reference Range Interpretation Comments Potassium Lvl (test code = Potassium 4.2 3.5-5.1 Lvl) [facility]2015-12-14 15:29:00 Test Item Value Reference Range Interpretation Comments eGFR (test code = eGFR) 101 [facility]2015-12-14 15:29:00 Test Item Value Reference Range Interpretation Comments Creatinine Lvl (test code = Creatinine 0.81 0.50-1.40 Lvl) [facility]2015-12-14 15:29:00 Test Item Value Reference Range Interpretation Comments CO2 (test code = CO2) 27 24-32 [facility]2015-12-14 15:29:00 Test Item Value Reference Range Interpretation Comments Calcium Lvl (test code = Calcium Lvl) 9.7 8.5-10.5 [facility]2015-12-14 15:29:00 Test Item Value Reference Range Interpretation Comments Sodium Lvl (test code = Sodium Lvl) 134 135-145 [facility]2015-12-14 15:29:00 Test Item Value Reference Range Interpretation Comments Chloride Lvl (test code = Chloride Lvl) 100 95-109 [facility]2015-12-14 15:29:00 Test Item Value Reference Range Interpretation Comments BUN (test code = BUN) 13 7-22 [facility]2015-12-14 15:29:00 Test Item Value Reference Range Interpretation Comments Glucose Lvl (test code = Glucose Lvl) 89 70-99 [facility]2015-12-14 15:29:00 Test Item Value Reference Range Interpretation Comments Potassium Lvl (test code = Potassium 4.2 3.5-5.1 Lvl) [facility]2015-12-14 15:29:00 Test Item Value Reference Range Interpretation Comments Sodium Lvl (test code = Sodium Lvl) 134 135-145 [facility]2015-12-14 15:29:00 Test Item Value Reference Range Interpretation Comments AGAP (test code = AGAP) 11.2 10.0-20.0 [facility] HeightsDcdwhzxDWXURCJBSG0177-46-78 15:29:00 Test Item Value Reference Range Interpretation Comments MPV (test code = MPV) 9.2 7.4-10.4 [facility] HeightsXixlrldDVVPHAKSTI2953-26-95 15:29:00 Test Item Value Reference Range Interpretation Comments Platelet (test code = Platelet) 307 133-450 [facility] HeightsJpzknfzQTWFKUZJKH7396-39-17 15:29:00 Test Item Value Reference Range Interpretation Comments MCH (test code = MCH) 24.3 pg 27.0-31.0 [facility] HeightsFnirpniNQOHSFYDMD1506-66-67 15:29:00 Test Item Value Reference Range Interpretation Comments RDW (test code = RDW) 15.7 11.5-14.5 [facility]2015-12-14 15:29:00 Test Item Value Reference Range Interpretation Comments AGAP (test code = AGAP) 11.2 10.0-20.0 [facility] HeightsJnaqadqCKUEUEWEKH6587-85-33 15:29:00 Test Item Value Reference Range Interpretation Comments MCHC (test code = MCHC) 31.2 32.0-36.0 [facility] HeightsVsujmokNHYGFVQCXY7856-30-01 15:29:00 Test Item Value Reference Range Interpretation Comments MCV (test code = MCV) 78.0 80.0-98.0 [facility] HeightsWfjyzswAGNXGFUXGY0828-47-59 15:29:00 Test Item Value Reference Range Interpretation Comments WBC (test code = WBC) 8.6 3.7-10.4 [facility] HeightsMdlukqvYMTDRKNYUI9103-01-30 15:29:00 Test Item Value Reference Range Interpretation Comments Hgb (test code = Hgb) 13.2 12.0-16.0 [facility] HeightsGltumyfHYYUTXNTPF4230-79-85 15:29:00 Test Item Value Reference Range Interpretation Comments RBC (test code = RBC) 5.41 4.20-5.40 [facility] HeightsAjkrqbjHTAPDQDHGH2270-23-14 15:29:00 Test Item Value Reference Range Interpretation Comments Hct (test code = Hct) 42.1 36.0-48.0 [facility] HeightsEruaoukDGLJSTGPDD6294-04-46 15:29:00 Test Item Value Reference Range Interpretation Comments Lymphocytes # (test code = Lymphocytes 3.2 1.0-5.5 #) [facility] HeightsRhbqpslCJPPNAQNRP6553-94-84 15:29:00 Test Item Value Reference Range Interpretation Comments Eosinophils # (test code 0.1 See_Comment [A utomated message] The = Eosinophils #) system whic h generated this result tra nsmitted reference range : <=0.5. The reference r kat was not used to int erpret this result as normal/abnormal . [facility] HeightsMgcvvtrKGQIAHTGRT7897-57-20 15:29:00 Test Item Value Reference Range Interpretation Comments Monocytes # (test code 0.8 See_Comment [Aut omated message] The = Monocytes #) system which generated this result tra nsmitted reference range : <=0.8. The reference r kat was not used to int erpret this result as normal/abnormal . [facility] HeightsRtvkmobMZJHXIUQVZ5842-74-27 15:29:00 Test Item Value Reference Range Interpretation Comments Basophils (test code = 0.7 See_Comment [Aut omated message] The Basophils) system which ge nerated this result tra nsmitted reference range : <=1.0. The reference r kat was not used to int erpret this result as normal/abnormal . [facility] HeightsOwcwzltLLXSGYPLFN9209-41-63 15:29:00 Test Item Value Reference Range Interpretation Comments MPV (test code = MPV) 9.2 7.4-10.4 [facility] HeightsAmpghswXPUQNSZECB3514-79-45 15:29:00 Test Item Value Reference Range Interpretation Comments Segs-Bands # (test code = Segs-Bands #) 4.4 1.5-8.1 [facility] HeightsFikfbymQDFGNTRECY5392-00-72 15:29:00 Test Item Value Reference Range Interpretation Comments Eosinophils (test code = 1.2 See_Comment [A utomated message] The Eosinophils) system which ge nerated this result tra nsmitted reference range : <=4.0. The reference r kat was not used to int erpret this result as normal/abnormal . [facility] HeightsDfeenjjIUCAXKEGXI0128-74-98 15:29:00 Test Item Value Reference Range Interpretation Comments Lymphocytes (test code = Lymphocytes) 37.4 20.0-40.0 [facility] HeightsBpuhdguYWLUADYLNA7432-54-96 15:29:00 Test Item Value Reference Range Interpretation Comments Monocytes (test code = Monocytes) 8.9 2.0-12.0 [facility] HeightsPtxebaaRWFZZTBJHH4988-98-13 15:29:00 Test Item Value Reference Range Interpretation Comments Segs (test code = Segs) 51.8 45.0-75.0 [facility] HeightsSxdkccwVJHBZFHOHM7579-62-69 15:29:00 Test Item Value Reference Range Interpretation Comments Microcyte (test code = 1+ *ABN*(08/12/15 Microcyte) 9:29 AM) [facility] HeightsXtqiqtdFQLUYZNFOO0125-95-22 15:29:00 Test Item Value Reference Range Interpretation Comments Basophils # (test code 0.1 See_Comment [Aut omated message] The = Basophils #) system which generated this result tra nsmitted reference range : <=0.2. The reference r kat was not used to int erpret this result as normal/abnormal . [facility]2015-12-14 15:29:00 Test Item Value Reference Range Interpretation Comments U Preg (test code = U Negative (08/12/15 9:29 Preg) AM) [facility]UbnmsixSNOPYIPWWP6523-06-02 15:29:00 Test Item Value Reference Range Interpretation Comments Platelet (test code = Platelet) 307 133-450 [facility] WorthXduojqfHWTGDHMANS9569-02-48 15:29:00 Test Item Value Reference Range Interpretation Comments MCH (test code = MCH) 24.3 pg 27.0-31.0 [facility] WorthQfmzzlgBEYNOLKPUM2597-26-74 15:29:00 Test Item Value Reference Range Interpretation Comments RDW (test code = RDW) 15.7 11.5-14.5 [facility] WorthBpdxbayABSLDWGQZF2671-44-75 15:29:00 Test Item Value Reference Range Interpretation Comments MCHC (test code = MCHC) 31.2 32.0-36.0 [facility] WorthFjuoripSGDNPNQFBA1837-33-47 15:29:00 Test Item Value Reference Range Interpretation Comments MCV (test code = MCV) 78.0 80.0-98.0 [facility] WorthPkznudyIIBGIAEXTQ5708-15-14 15:29:00 Test Item Value Reference Range Interpretation Comments WBC (test code = WBC) 8.6 3.7-10.4 [facility] WorthRaigzheWZTXIQEIGE3755-93-75 15:29:00 Test Item Value Reference Range Interpretation Comments Hgb (test code = Hgb) 13.2 12.0-16.0 [facility] WorthZxxsextDNXPXOOZCT1811-28-79 15:29:00 Test Item Value Reference Range Interpretation Comments RBC (test code = RBC) 5.41 4.20-5.40 [facility] WorthItooyndVJTKXWHWZI2014-42-91 15:29:00 Test Item Value Reference Range Interpretation Comments Hct (test code = Hct) 42.1 36.0-48.0 [facility] WorthLsujbodKOBCUEBTGG3029-52-60 15:29:00 Test Item Value Reference Range Interpretation Comments Lymphocytes # (test code = Lymphocytes 3.2 1.0-5.5 #) [facility] WorthOcxnuaoYDVVSGPJED8926-92-60 15:29:00 Test Item Value Reference Range Interpretation Comments Eosinophils # (test code 0.1 See_Comment [A utomated message] The = Eosinophils #) system whic h generated this result tra nsmitted reference range : <=0.5. The reference r kat was not used to int erpret this result as normal/abnormal . [facility] HeightsMtehtvnKXJQUNUYLF2081-30-23 15:29:00 Test Item Value Reference Range Interpretation Comments Monocytes # (test code 0.8 See_Comment [Aut omated message] The = Monocytes #) system which generated this result tra nsmitted reference range : <=0.8. The reference r kat was not used to int erpret this result as normal/abnormal . [facility] HeightsEexltssOXHHJTTLDF7828-93-87 15:29:00 Test Item Value Reference Range Interpretation Comments Basophils (test code = 0.7 See_Comment [Aut omated message] The Basophils) system which ge nerated this result tra nsmitted reference range : <=1.0. The reference r kat was not used to int erpret this result as normal/abnormal . [facility] HeightsSjtaiuzEMXSNOGRPC1692-52-76 15:29:00 Test Item Value Reference Range Interpretation Comments Segs-Bands # (test code = Segs-Bands #) 4.4 1.5-8.1 [facility] HeightsKhrfsgsHOUCIZQUEF1215-96-43 15:29:00 Test Item Value Reference Range Interpretation Comments Eosinophils (test code = 1.2 See_Comment [A utomated message] The Eosinophils) system which ge nerated this result tra nsmitted reference range : <=4.0. The reference r kat was not used to int erpret this result as normal/abnormal . [facility] HeightsGfsoomyQMNPUHIJFU6754-03-61 15:29:00 Test Item Value Reference Range Interpretation Comments Lymphocytes (test code = Lymphocytes) 37.4 20.0-40.0 [facility] HeightsQiodlrzHPGECLHOSP4443-56-53 15:29:00 Test Item Value Reference Range Interpretation Comments Monocytes (test code = Monocytes) 8.9 2.0-12.0 [facility] HeightsKumamkcDRVNGTWBTZ8891-50-64 15:29:00 Test Item Value Reference Range Interpretation Comments Segs (test code = Segs) 51.8 45.0-75.0 [facility] HeightsUaaywgbRTVGDNJAWA3444-32-35 15:29:00 Test Item Value Reference Range Interpretation Comments Microcyte (test code = 1+ *ABN*(08/12/15 Microcyte) 9:29 AM) [facility]wwhqbpJDTTJIAASZ8570-84-18 15:29:00 Test Item Value Reference Range Interpretation Comments Basophils # (test code 0.1 See_Comment [Aut omated message] The = Basophils #) system which generated this result tra nsmitted reference range : <=0.2. The reference r kat was not used to int erpret this result as normal/abnormal . [facility] FSOX0998-70-50 15:29:00 Test Item Value Reference Range Interpretation Comments U Preg (test code = U Negative (08/12/15 9:29 Preg) AM) [facility] TQHFV2763-65-83 15:29:00 Test Item Value Reference Range Interpretation Comments eGFR (test code = eGFR) 101 [facility]2015-12-14 15:29:00 Test Item Value Reference Range Interpretation Comments Creatinine Lvl (test code = Creatinine 0.81 0.50-1.40 Lvl) [facility]2015-12-14 15:29:00 Test Item Value Reference Range Interpretation Comments CO2 (test code = CO2) 27 24-32 [facility]2015-12-14 15:29:00 Test Item Value Reference Range Interpretation Comments Calcium Lvl (test code = Calcium Lvl) 9.7 8.5-10.5 [facility]2015-12-14 15:29:00 Test Item Value Reference Range Interpretation Comments Chloride Lvl (test code = Chloride Lvl) 100 95-109 [facility]2015-12-14 15:29:00 Test Item Value Reference Range Interpretation Comments BUN (test code = BUN) 13 7-22 [facility]2015-12-14 15:29:00 Test Item Value Reference Range Interpretation Comments Glucose Lvl (test code = Glucose Lvl) 89 70-99 [facility]2015-12-14 15:29:00 Test Item Value Reference Range Interpretation Comments Potassium Lvl (test code = Potassium 4.2 3.5-5.1 Lvl) [facility]2015-12-14 15:29:00 Test Item Value Reference Range Interpretation Comments Sodium Lvl (test code = Sodium Lvl) 134 135-145 [facility]2015-12-14 15:29:00 Test Item Value Reference Range Interpretation Comments AGAP (test code = AGAP) 11.2 10.0-20.0 [facility] HeightsQqjerjoIRZPEXYKMQ7442-61-39 15:29:00 Test Item Value Reference Range Interpretation Comments MPV (test code = MPV) 9.2 7.4-10.4 [facility] HeightsZwxeckaYGEHGACSON4878-69-95 15:29:00 Test Item Value Reference Range Interpretation Comments Platelet (test code = Platelet) 307 133-450 [facility] HeightsXgtgwosYKDDKIEFIQ5061-13-08 15:29:00 Test Item Value Reference Range Interpretation Comments MCH (test code = MCH) 24.3 pg 27.0-31.0 [facility] HeightsZbklbgdYETXCDKPIL2610-24-05 15:29:00 Test Item Value Reference Range Interpretation Comments RDW (test code = RDW) 15.7 11.5-14.5 [facility] HeightsBmdhzwlDJGYHNJXWX2034-88-02 15:29:00 Test Item Value Reference Range Interpretation Comments MCHC (test code = MCHC) 31.2 32.0-36.0 [facility] HeightsOedlkfwJYASNTVSGK8719-47-20 15:29:00 Test Item Value Reference Range Interpretation Comments MCV (test code = MCV) 78.0 80.0-98.0 [facility] HeightsCsmictfDYONIGREWC7339-74-34 15:29:00 Test Item Value Reference Range Interpretation Comments WBC (test code = WBC) 8.6 3.7-10.4 [facility] HeightsCmigzmbQROITBGZHK2635-62-16 15:29:00 Test Item Value Reference Range Interpretation Comments Hgb (test code = Hgb) 13.2 12.0-16.0 [facility] HeightsOlhjsejZSZNIYLAAR3602-67-29 15:29:00 Test Item Value Reference Range Interpretation Comments RBC (test code = RBC) 5.41 4.20-5.40 [facility] HeightsOtpjejqXMDVASEOPP7020-91-11 15:29:00 Test Item Value Reference Range Interpretation Comments Hct (test code = Hct) 42.1 36.0-48.0 [facility] HeightsDjuzejlGCPKHLRPQS4134-53-67 15:29:00 Test Item Value Reference Range Interpretation Comments Lymphocytes # (test code = Lymphocytes 3.2 1.0-5.5 #) [facility] HeightsWyhcjlxUJIJBGGLGS9370-13-00 15:29:00 Test Item Value Reference Range Interpretation Comments Eosinophils # (test code 0.1 See_Comment [A utomated message] The = Eosinophils #) system whic h generated this result tra nsmitted reference range : <=0.5. The reference r kat was not used to int erpret this result as normal/abnormal . [facility] HeightsObadyksVLOIVDZCXI1709-41-22 15:29:00 Test Item Value Reference Range Interpretation Comments Monocytes # (test code 0.8 See_Comment [Aut omated message] The = Monocytes #) system which generated this result tra nsmitted reference range : <=0.8. The reference r kat was not used to int erpret this result as normal/abnormal . [facility] HeightsIlmkplcVJJTWFDLMJ0927-75-80 15:29:00 Test Item Value Reference Range Interpretation Comments Basophils (test code = 0.7 See_Comment [Aut omated message] The Basophils) system which ge nerated this result tra nsmitted reference range : <=1.0. The reference r kat was not used to int erpret this result as normal/abnormal . [facility] HeightsLnqmqacCVOBFXUSUU5662-08-06 15:29:00 Test Item Value Reference Range Interpretation Comments Segs-Bands # (test code = Segs-Bands #) 4.4 1.5-8.1 [facility] HeightsGjlpazbMKDDTMGXKP9335-97-75 15:29:00 Test Item Value Reference Range Interpretation Comments Eosinophils (test code = 1.2 See_Comment [A utomated message] The Eosinophils) system which ge nerated this result tra nsmitted reference range : <=4.0. The reference r kat was not used to int erpret this result as normal/abnormal . [facility] HeightsCqnetecMKNIPKSJCU2246-64-50 15:29:00 Test Item Value Reference Range Interpretation Comments Lymphocytes (test code = Lymphocytes) 37.4 20.0-40.0 [facility]CuhgqvlIXJFIYLMWB4603-04-50 15:29:00 Test Item Value Reference Range Interpretation Comments Monocytes (test code = Monocytes) 8.9 2.0-12.0 [facility] HeightsLfjuypnDXCGFPLWCT4553-97-59 15:29:00 Test Item Value Reference Range Interpretation Comments Segs (test code = Segs) 51.8 45.0-75.0 [facility] HeightsDjpmksvPVTMPZLAZH2883-06-14 15:29:00 Test Item Value Reference Range Interpretation Comments Microcyte (test code = 1+ *ABN*(08/12/15 Microcyte) 9:29 AM) [facility] 15:29:00 Test Item Value Reference Range Interpretation Comments Basophils # (test code 0.1 See_Comment [Aut omated message] The = Basophils #) system which generated this result tra nsmitted reference range : <=0.2. The reference r kat was not used to int erpret this result as normal/abnormal . [facility] [id number] 15:29:00 Test Item Value Reference Range Interpretation Comments U Preg (test code = U Negative (08/12/15 9:29 Preg) AM) [facility] UDMBQ9066-29-54 15:29:00 Test Item Value Reference Range Interpretation Comments eGFR (test code = eGFR) 101 [facility]2015-12-14 15:29:00 Test Item Value Reference Range Interpretation Comments Creatinine Lvl (test code = Creatinine 0.81 0.50-1.40 Lvl) [facility]2015-12-14 15:29:00 Test Item Value Reference Range Interpretation Comments CO2 (test code = CO2) 27 24-32 [facility]2015-12-14 15:29:00 Test Item Value Reference Range Interpretation Comments Calcium Lvl (test code = Calcium Lvl) 9.7 8.5-10.5 [facility]2015-12-14 15:29:00 Test Item Value Reference Range Interpretation Comments Chloride Lvl (test code = Chloride Lvl) 100 95-109 [facility]2015-12-14 15:29:00 Test Item Value Reference Range Interpretation Comments BUN (test code = BUN) 13 7-22 [facility]2015-12-14 15:29:00 Test Item Value Reference Range Interpretation Comments Glucose Lvl (test code = Glucose Lvl) 89 70-99 [facility]2015-12-14 15:29:00 Test Item Value Reference Range Interpretation Comments Potassium Lvl (test code = Potassium 4.2 3.5-5.1 Lvl) [facility]2015-12-14 15:29:00 Test Item Value Reference Range Interpretation Comments Sodium Lvl (test code = Sodium Lvl) 134 135-145 [facility]2015-12-14 15:29:00 Test Item Value Reference Range Interpretation Comments AGAP (test code = AGAP) 11.2 10.0-20.0 [facility] HeightsWrhkemgPKRDQTTVPB9882-39-46 15:29:00 Test Item Value Reference Range Interpretation Comments MPV (test code = MPV) 9.2 7.4-10.4 [facility] HeightsVfyqbiyVOZNBSYSLN0327-87-95 15:29:00 Test Item Value Reference Range Interpretation Comments Platelet (test code = Platelet) 307 133-450 [facility] HeightsHuglpwfMFNWZHDGIL7025-38-65 15:29:00 Test Item Value Reference Range Interpretation Comments MCH (test code = MCH) 24.3 pg 27.0-31.0 [facility] HeightsSqklysrFHHSIGBWZT2176-33-22 15:29:00 Test Item Value Reference Range Interpretation Comments RDW (test code = RDW) 15.7 11.5-14.5 [facility] HeightsIwlenllNCJDFMRXLM3259-37-61 15:29:00 Test Item Value Reference Range Interpretation Comments MCHC (test code = MCHC) 31.2 32.0-36.0 [facility] HeightsCatrsmhZLMNEYNCRG5782-74-63 15:29:00 Test Item Value Reference Range Interpretation Comments MCV (test code = MCV) 78.0 80.0-98.0 [facility] HeightsLyqdcagJJTCHSOVCU5749-88-44 15:29:00 Test Item Value Reference Range Interpretation Comments WBC (test code = WBC) 8.6 3.7-10.4 [facility] HeightsKrdobboANAWVTSBEO5570-16-37 15:29:00 Test Item Value Reference Range Interpretation Comments Hgb (test code = Hgb) 13.2 12.0-16.0 [facility] HeightsMlgkqkoUCGZMUHZSZ9661-09-67 15:29:00 Test Item Value Reference Range Interpretation Comments RBC (test code = RBC) 5.41 4.20-5.40 [facility] HeightsVtqvmjrIIBKDLLUQO8749-85-30 15:29:00 Test Item Value Reference Range Interpretation Comments Hct (test code = Hct) 42.1 36.0-48.0 [facility] HeightsEmvmfnaULTLDUCSOD9937-14-52 15:29:00 Test Item Value Reference Range Interpretation Comments Lymphocytes # (test code = Lymphocytes 3.2 1.0-5.5 #) [facility] HeightsAejprdzTUFUWXUIUA3221-87-21 15:29:00 Test Item Value Reference Range Interpretation Comments Eosinophils # (test code 0.1 See_Comment [A utomated message] The = Eosinophils #) system whic h generated this result tra nsmitted reference range : <=0.5. The reference r kat was not used to int erpret this result as normal/abnormal . [facility] HeightsNfnseauOTUNNMVNDG3790-74-34 15:29:00 Test Item Value Reference Range Interpretation Comments Monocytes # (test code 0.8 See_Comment [Aut omated message] The = Monocytes #) system which generated this result tra nsmitted reference range : <=0.8. The reference r kat was not used to int erpret this result as normal/abnormal . [facility] HeightsOukaydqMDTPYAVPUC1089-81-11 15:29:00 Test Item Value Reference Range Interpretation Comments Basophils (test code = 0.7 See_Comment [Aut omated message] The Basophils) system which ge nerated this result tra nsmitted reference range : <=1.0. The reference r kat was not used to int erpret this result as normal/abnormal . [facility] HeightsKzalnigEKVYOHLMWC0404-41-19 15:29:00 Test Item Value Reference Range Interpretation Comments Segs-Bands # (test code = Segs-Bands #) 4.4 1.5-8.1 [facility] HeightsAtzklmgWDDUJPCPBC4691-50-82 15:29:00 Test Item Value Reference Range Interpretation Comments Eosinophils (test code = 1.2 See_Comment [A utomated message] The Eosinophils) system which ge nerated this result tra nsmitted reference range : <=4.0. The reference r kat was not used to int erpret this result as normal/abnormal . [facility] HeightsEtxrzgaFXKYRCWTIA1764-28-82 15:29:00 Test Item Value Reference Range Interpretation Comments Lymphocytes (test code = Lymphocytes) 37.4 20.0-40.0 [facility] HeightsDdpricxWPJUXLJBXA4644-49-04 15:29:00 Test Item Value Reference Range Interpretation Comments Monocytes (test code = Monocytes) 8.9 2.0-12.0 [facility] HeightsOcytyseUHZXHBBCEQ0844-67-78 15:29:00 Test Item Value Reference Range Interpretation Comments Segs (test code = Segs) 51.8 45.0-75.0 [facility] HeightsKvyixgqDQKITLJGYT7205-58-79 15:29:00 Test Item Value Reference Range Interpretation Comments Microcyte (test code = 1+ *ABN*(08/12/15 Microcyte) 9:29 AM) [facility]AtyosgbWDYXPYDULF8502-81-34 15:29:00 Test Item Value Reference Range Interpretation Comments Basophils # (test code 0.1 See_Comment [Aut omated message] The = Basophils #) system which generated this result tra nsmitted reference range : <=0.2. The reference r kat was not used to int erpret this result as normal/abnormal . [facility] [id number] 15:29:00 Test Item Value Reference Range Interpretation Comments U Preg (test code = U Negative (08/12/15 9:29 Preg) AM) [facility] NAJZE4471-89-17 15:29:00 Test Item Value Reference Range Interpretation Comments eGFR (test code = eGFR) 101 [facility]2015-12-14 15:29:00 Test Item Value Reference Range Interpretation Comments Creatinine Lvl (test code = Creatinine 0.81 0.50-1.40 Lvl) [facility]2015-12-14 15:29:00 Test Item Value Reference Range Interpretation Comments CO2 (test code = CO2) 27 24-32 [facility]2015-12-14 15:29:00 Test Item Value Reference Range Interpretation Comments Calcium Lvl (test code = Calcium Lvl) 9.7 8.5-10.5 [facility]2015-12-14 15:29:00 Test Item Value Reference Range Interpretation Comments Chloride Lvl (test code = Chloride Lvl) 100 95-109 [facility]2015-12-14 15:29:00 Test Item Value Reference Range Interpretation Comments BUN (test code = BUN) 13 7-22 [facility]2015-12-14 15:29:00 Test Item Value Reference Range Interpretation Comments Glucose Lvl (test code = Glucose Lvl) 89 70-99 [facility]2015-12-14 15:29:00 Test Item Value Reference Range Interpretation Comments Potassium Lvl (test code = Potassium 4.2 3.5-5.1 Lvl) [facility]2015-12-14 15:29:00 Test Item Value Reference Range Interpretation Comments Sodium Lvl (test code = Sodium Lvl) 134 135-145 [facility]2015-12-14 15:29:00 Test Item Value Reference Range Interpretation Comments AGAP (test code = AGAP) 11.2 10.0-20.0 [facility] HeightsWndwhytVNGTTJMHMV8499-56-45 15:29:00 Test Item Value Reference Range Interpretation Comments MPV (test code = MPV) 9.2 7.4-10.4 [facility] HeightsWpgaahkKWVBPAVRYT5394-84-73 15:29:00 Test Item Value Reference Range Interpretation Comments Platelet (test code = Platelet) 307 133-450 [facility] HeightsArzmwcrJZKRCNVKYI0101-58-16 15:29:00 Test Item Value Reference Range Interpretation Comments MCH (test code = MCH) 24.3 pg 27.0-31.0 [facility] HeightsQmdekmmYEUHPPVBRT2346-71-74 15:29:00 Test Item Value Reference Range Interpretation Comments RDW (test code = RDW) 15.7 11.5-14.5 [facility] HeightsGflrldkGICCWAKNTG6095-37-17 15:29:00 Test Item Value Reference Range Interpretation Comments MCHC (test code = MCHC) 31.2 32.0-36.0 [facility] HeightsIuwxckvUTELTOSANN8669-19-04 15:29:00 Test Item Value Reference Range Interpretation Comments MCV (test code = MCV) 78.0 80.0-98.0 [facility] HeightsMzfbefoNGLZOPNBKL7116-47-56 15:29:00 Test Item Value Reference Range Interpretation Comments WBC (test code = WBC) 8.6 3.7-10.4 [facility] HeightsOunwecxKZVCNQSYFM0115-00-39 15:29:00 Test Item Value Reference Range Interpretation Comments Hgb (test code = Hgb) 13.2 12.0-16.0 [facility] HeightsFzbhkdzBJGBTRRTQR5805-98-16 15:29:00 Test Item Value Reference Range Interpretation Comments RBC (test code = RBC) 5.41 4.20-5.40 [facility] HeightsZqlpxntQGJGAUIZNH7447-41-65 15:29:00 Test Item Value Reference Range Interpretation Comments Hct (test code = Hct) 42.1 36.0-48.0 [facility] HeightsOzgkjleABWITRJCPK6581-12-34 15:29:00 Test Item Value Reference Range Interpretation Comments Lymphocytes # (test code = Lymphocytes 3.2 1.0-5.5 #) [facility] HeightsYswldlnKDKZHUYVHO2323-28-67 15:29:00 Test Item Value Reference Range Interpretation Comments Eosinophils # (test code 0.1 See_Comment [A utomated message] The = Eosinophils #) system whic h generated this result tra nsmitted reference range : <=0.5. The reference r kat was not used to int erpret this result as normal/abnormal . [facility] HeightsOupcsfzZDHGNSBZCN5780-29-06 15:29:00 Test Item Value Reference Range Interpretation Comments Monocytes # (test code 0.8 See_Comment [Aut omated message] The = Monocytes #) system which generated this result tra nsmitted reference range : <=0.8. The reference r kat was not used to int erpret this result as normal/abnormal . [facility] HeightsRyygrjyTDLKRCPQEZ4295-76-12 15:29:00 Test Item Value Reference Range Interpretation Comments Basophils (test code = 0.7 See_Comment [Aut omated message] The Basophils) system which ge nerated this result tra nsmitted reference range : <=1.0. The reference r kat was not used to int erpret this result as normal/abnormal . [facility] HeightsRyftffbVXYVZLSWZA0833-28-33 15:29:00 Test Item Value Reference Range Interpretation Comments Segs-Bands # (test code = Segs-Bands #) 4.4 1.5-8.1 [facility] HeightsYzdssfbFOAQZQYDXF3720-42-58 15:29:00 Test Item Value Reference Range Interpretation Comments Eosinophils (test code = 1.2 See_Comment [A utomated message] The Eosinophils) system which ge nerated this result tra nsmitted reference range : <=4.0. The reference r kat was not used to int erpret this result as normal/abnormal . [facility] HeightsVuznqjtZSBRNVBTDX6571-79-45 15:29:00 Test Item Value Reference Range Interpretation Comments Lymphocytes (test code = Lymphocytes) 37.4 20.0-40.0 [facility] HeightsAkouxysBUMBQIHXZE3185-59-88 15:29:00 Test Item Value Reference Range Interpretation Comments Monocytes (test code = Monocytes) 8.9 2.0-12.0 [facility] HeightsSoiehlxQLSUKDKEVP6546-13-15 15:29:00 Test Item Value Reference Range Interpretation Comments Segs (test code = Segs) 51.8 45.0-75.0 [facility] HeightsQqsgpilTYWDRLUAUZ3243-73-70 15:29:00 Test Item Value Reference Range Interpretation Comments Microcyte (test code = 1+ *ABN*(08/12/15 Microcyte) 9:29 AM) [facility]XfgkdilCSEAWOWDOV8254-98-27 15:29:00 Test Item Value Reference Range Interpretation Comments Basophils # (test code 0.1 See_Comment [Aut omated message] The = Basophils #) system which generated this result tra nsmitted reference range : <=0.2. The reference r kat was not used to int erpret this result as normal/abnormal . [facility] [id number] 15:29:00 Test Item Value Reference Range Interpretation Comments U Preg (test code = U Negative (08/12/15 9:29 Preg) AM) [facility] [id number] 15:29:00 Test Item Value Reference Range Interpretation Comments eGFR (test code = eGFR) 101 [facility]2015-12-14 15:29:00 Test Item Value Reference Range Interpretation Comments Creatinine Lvl (test code = Creatinine 0.81 0.50-1.40 Lvl) [facility]2015-12-14 15:29:00 Test Item Value Reference Range Interpretation Comments CO2 (test code = CO2) 27 24-32 [facility]2015-12-14 15:29:00 Test Item Value Reference Range Interpretation Comments Calcium Lvl (test code = Calcium Lvl) 9.7 8.5-10.5 [facility]2015-12-14 15:29:00 Test Item Value Reference Range Interpretation Comments Chloride Lvl (test code = Chloride Lvl) 100 95-109 [facility]2015-12-14 15:29:00 Test Item Value Reference Range Interpretation Comments BUN (test code = BUN) 13 7-22 [facility]2015-12-14 15:29:00 Test Item Value Reference Range Interpretation Comments Glucose Lvl (test code = Glucose Lvl) 89 70-99 [facility]2015-12-14 15:29:00 Test Item Value Reference Range Interpretation Comments Potassium Lvl (test code = Potassium 4.2 3.5-5.1 Lvl) [facility]2015-12-14 15:29:00 Test Item Value Reference Range Interpretation Comments Sodium Lvl (test code = Sodium Lvl) 134 135-145 [facility]2015-12-14 15:29:00 Test Item Value Reference Range Interpretation Comments AGAP (test code = AGAP) 11.2 10.0-20.0 [facility] HeightsYjoxexqQMUKPPCJML3826-87-40 15:29:00 Test Item Value Reference Range Interpretation Comments MPV (test code = MPV) 9.2 7.4-10.4 [facility] HeightsFdngviyHOGSOBTFWN5201-35-96 15:29:00 Test Item Value Reference Range Interpretation Comments Platelet (test code = Platelet) 307 133-450 [facility] HeightsWczgfdhKPHCTWGHZB8074-15-30 15:29:00 Test Item Value Reference Range Interpretation Comments MCH (test code = MCH) 24.3 pg 27.0-31.0 [facility] HeightsDwjjchqPRSNNBHZKP9877-06-18 15:29:00 Test Item Value Reference Range Interpretation Comments RDW (test code = RDW) 15.7 11.5-14.5 [facility] HeightsKcvbajzAJUKZEFZLT6861-79-98 15:29:00 Test Item Value Reference Range Interpretation Comments MCHC (test code = MCHC) 31.2 32.0-36.0 [facility] HeightsHprljxiJTCGNOSIYW8193-28-90 15:29:00 Test Item Value Reference Range Interpretation Comments MCV (test code = MCV) 78.0 80.0-98.0 [facility] HeightsYgatrmaJPTVGATOHW3386-65-29 15:29:00 Test Item Value Reference Range Interpretation Comments WBC (test code = WBC) 8.6 3.7-10.4 [facility] HeightsOcppvvxQHOSIJOIFE2693-71-56 15:29:00 Test Item Value Reference Range Interpretation Comments Hgb (test code = Hgb) 13.2 12.0-16.0 [facility] HeightsPstpyeuRIIPGBQATQ9783-74-10 15:29:00 Test Item Value Reference Range Interpretation Comments RBC (test code = RBC) 5.41 4.20-5.40 [facility] HeightsPrgmrdaPJNNSUGEPS7094-60-75 15:29:00 Test Item Value Reference Range Interpretation Comments Hct (test code = Hct) 42.1 36.0-48.0 [facility] HeightsDyjhasbDOUAHFHANE7397-31-67 15:29:00 Test Item Value Reference Range Interpretation Comments Lymphocytes # (test code = Lymphocytes 3.2 1.0-5.5 #) [facility] HeightsKnuczabMWJPEHBJJH2361-90-31 15:29:00 Test Item Value Reference Range Interpretation Comments Eosinophils # (test code 0.1 See_Comment [A utomated message] The = Eosinophils #) system whic h generated this result tra nsmitted reference range : <=0.5. The reference r kat was not used to int erpret this result as normal/abnormal . [facility] HeightsBcrhtgtZCFKLHTYHR5467-60-13 15:29:00 Test Item Value Reference Range Interpretation Comments Monocytes # (test code 0.8 See_Comment [Aut omated message] The = Monocytes #) system which generated this result tra nsmitted reference range : <=0.8. The reference r kat was not used to int erpret this result as normal/abnormal . [facility] HeightsHneoblhQDIXHBAZAB2814-69-88 15:29:00 Test Item Value Reference Range Interpretation Comments Basophils (test code = 0.7 See_Comment [Aut omated message] The Basophils) system which ge nerated this result tra nsmitted reference range : <=1.0. The reference r kat was not used to int erpret this result as normal/abnormal . [facility] HeightsQwmmvvyDGLFXHGWZQ2359-22-47 15:29:00 Test Item Value Reference Range Interpretation Comments Segs-Bands # (test code = Segs-Bands #) 4.4 1.5-8.1 [facility] HeightsVotzjpsIBCZFIBADC1044-88-59 15:29:00 Test Item Value Reference Range Interpretation Comments Eosinophils (test code = 1.2 See_Comment [A utomated message] The Eosinophils) system which ge nerated this result tra nsmitted reference range : <=4.0. The reference r kat was not used to int erpret this result as normal/abnormal . [facility] HeightsEimnkzxUJFVZGTEUX0200-68-18 15:29:00 Test Item Value Reference Range Interpretation Comments Lymphocytes (test code = Lymphocytes) 37.4 20.0-40.0 [facility] HeightsTavecfcYBJRVENDWA1533-20-49 15:29:00 Test Item Value Reference Range Interpretation Comments Monocytes (test code = Monocytes) 8.9 2.0-12.0 [facility] HeightsJjbyrgnCSPBROFWUD9188-75-68 15:29:00 Test Item Value Reference Range Interpretation Comments Segs (test code = Segs) 51.8 45.0-75.0 [facility] HeightsNzsdvzpPDTZRMIEAI5837-01-18 15:29:00 Test Item Value Reference Range Interpretation Comments Microcyte (test code = 1+ *ABN*(08/12/15 Microcyte) 9:29 AM) [facility]cdueltEGULQWMCOK9651-12-77 15:29:00 Test Item Value Reference Range Interpretation Comments Basophils # (test code 0.1 See_Comment [Aut omated message] The = Basophils #) system which generated this result tra nsmitted reference range : <=0.2. The reference r kat was not used to int erpret this result as normal/abnormal . [facility] YJES2669-93-41 15:29:00 Test Item Value Reference Range Interpretation Comments U Preg (test code = U Negative (08/12/15 9:29 Preg) AM) [facility] YHDMC2517-22-70 15:29:00 Test Item Value Reference Range Interpretation Comments eGFR (test code = eGFR) 101 [facility]2015-12-14 15:29:00 Test Item Value Reference Range Interpretation Comments Creatinine Lvl (test code = Creatinine 0.81 0.50-1.40 Lvl) [facility]2015-12-14 15:29:00 Test Item Value Reference Range Interpretation Comments CO2 (test code = CO2) 27 24-32 [facility]2015-12-14 15:29:00 Test Item Value Reference Range Interpretation Comments Calcium Lvl (test code = Calcium Lvl) 9.7 8.5-10.5 [facility]2015-12-14 15:29:00 Test Item Value Reference Range Interpretation Comments Chloride Lvl (test code = Chloride Lvl) 100 95-109 [facility]2015-12-14 15:29:00 Test Item Value Reference Range Interpretation Comments BUN (test code = BUN) 13 7-22 [facility]2015-12-14 15:29:00 Test Item Value Reference Range Interpretation Comments Glucose Lvl (test code = Glucose Lvl) 89 70-99 [facility]2015-12-14 15:29:00 Test Item Value Reference Range Interpretation Comments Potassium Lvl (test code = Potassium 4.2 3.5-5.1 Lvl) [facility]2015-12-14 15:29:00 Test Item Value Reference Range Interpretation Comments Sodium Lvl (test code = Sodium Lvl) 134 135-145 [facility]2015-12-14 15:29:00 Test Item Value Reference Range Interpretation Comments AGAP (test code = AGAP) 11.2 10.0-20.0 [facility] HeightsJbfeltxTHBDBNTYRK2305-90-83 15:29:00 Test Item Value Reference Range Interpretation Comments MPV (test code = MPV) 9.2 7.4-10.4 [facility] HeightsXukcoliQXQXIZNINH8940-49-94 15:29:00 Test Item Value Reference Range Interpretation Comments Platelet (test code = Platelet) 307 133-450 [facility] HeightsGyrufpvCSUKQSOFEM7233-03-02 15:29:00 Test Item Value Reference Range Interpretation Comments MCH (test code = MCH) 24.3 pg 27.0-31.0 [facility] HeightsJvdcgywPKMRAYDASW0265-53-27 15:29:00 Test Item Value Reference Range Interpretation Comments RDW (test code = RDW) 15.7 11.5-14.5 [facility] HeightsRssqnfpCMRFZEKPRO8676-48-24 15:29:00 Test Item Value Reference Range Interpretation Comments MCHC (test code = MCHC) 31.2 32.0-36.0 [facility] HeightsDznqgkcLFVQZWGRYP8075-08-76 15:29:00 Test Item Value Reference Range Interpretation Comments MCV (test code = MCV) 78.0 80.0-98.0 [facility] HeightsLjrictyPRAJUTJKVF2552-69-47 15:29:00 Test Item Value Reference Range Interpretation Comments WBC (test code = WBC) 8.6 3.7-10.4 [facility] HeightsXwspzbwTSHMENVHUY4102-45-39 15:29:00 Test Item Value Reference Range Interpretation Comments Hgb (test code = Hgb) 13.2 12.0-16.0 [facility] HeightsRwobloqXUJCZYNHPX4538-23-57 15:29:00 Test Item Value Reference Range Interpretation Comments RBC (test code = RBC) 5.41 4.20-5.40 [facility] HeightsUgqlvabAXGNDKUMLJ7877-11-04 15:29:00 Test Item Value Reference Range Interpretation Comments Hct (test code = Hct) 42.1 36.0-48.0 [facility] HeightsVvjdzqlOJDYZDSCOK2480-96-87 15:29:00 Test Item Value Reference Range Interpretation Comments Lymphocytes # (test code = Lymphocytes 3.2 1.0-5.5 #) [facility] HeightsRcqyrgdKQNZHESVRN0918-77-00 15:29:00 Test Item Value Reference Range Interpretation Comments Eosinophils # (test code 0.1 See_Comment [A utomated message] The = Eosinophils #) system whic h generated this result tra nsmitted reference range : <=0.5. The reference r kat was not used to int erpret this result as normal/abnormal . [facility] HeightsMiovofaNSZFDRYMUS8931-73-74 15:29:00 Test Item Value Reference Range Interpretation Comments Monocytes # (test code 0.8 See_Comment [Aut omated message] The = Monocytes #) system which generated this result tra nsmitted reference range : <=0.8. The reference r kat was not used to int erpret this result as normal/abnormal . [facility] HeightsCzztavbNUERKKKCPR6519-89-91 15:29:00 Test Item Value Reference Range Interpretation Comments Basophils (test code = 0.7 See_Comment [Aut omated message] The Basophils) system which ge nerated this result tra nsmitted reference range : <=1.0. The reference r kat was not used to int erpret this result as normal/abnormal . [facility] HeightsOfwhlakFXDIQRJBUT5852-34-21 15:29:00 Test Item Value Reference Range Interpretation Comments Segs-Bands # (test code = Segs-Bands #) 4.4 1.5-8.1 [facility] HeightsCjtxqhsTTBTJAMVMX3570-97-27 15:29:00 Test Item Value Reference Range Interpretation Comments Eosinophils (test code = 1.2 See_Comment [A utomated message] The Eosinophils) system which ge nerated this result tra nsmitted reference range : <=4.0. The reference r kat was not used to int erpret this result as normal/abnormal . [facility] HeightsCihiudqSXYKLMCQSM2615-39-44 15:29:00 Test Item Value Reference Range Interpretation Comments Lymphocytes (test code = Lymphocytes) 37.4 20.0-40.0 [facility] HeightsOvruhztMKEZNTARSZ2758-59-17 15:29:00 Test Item Value Reference Range Interpretation Comments Monocytes (test code = Monocytes) 8.9 2.0-12.0 [facility] HeightsBlafwkaEHOYFJIHIU0889-86-37 15:29:00 Test Item Value Reference Range Interpretation Comments Segs (test code = Segs) 51.8 45.0-75.0 [facility] HeightsAxkzmnyKJJZQPNIWK1067-68-84 15:29:00 Test Item Value Reference Range Interpretation Comments Microcyte (test code = 1+ *ABN*(08/12/15 Microcyte) 9:29 AM) [facility]IBXZI8244[facility]-29 15:29:00 Test Item Value Reference Range Interpretation Comments Basophils # (test code 0.1 See_Comment [Aut omated message] The = Basophils #) system which generated this result tra nsmitted reference range : <=0.2. The reference r kat was not used to int erpret this result as normal/abnormal . [facility] [id number] 15:29:00 Test Item Value Reference Range Interpretation Comments U Preg (test code = U Negative (08/12/15 9:29 Preg) AM) [facility] [id number] 15:29:00 Test Item Value Reference Range Interpretation Comments eGFR (test code = eGFR) 101 [facility]2015-12-14 15:29:00 Test Item Value Reference Range Interpretation Comments Creatinine Lvl (test code = Creatinine 0.81 0.50-1.40 Lvl) [facility]2015-12-14 15:29:00 Test Item Value Reference Range Interpretation Comments CO2 (test code = CO2) 27 24-32 [facility]2015-12-14 15:29:00 Test Item Value Reference Range Interpretation Comments Calcium Lvl (test code = Calcium Lvl) 9.7 8.5-10.5 [facility]2015-12-14 15:29:00 Test Item Value Reference Range Interpretation Comments Chloride Lvl (test code = Chloride Lvl) 100 95-109 [facility]2015-12-14 15:29:00 Test Item Value Reference Range Interpretation Comments BUN (test code = BUN) 13 7-22 [facility]2015-12-14 15:29:00 Test Item Value Reference Range Interpretation Comments Glucose Lvl (test code = Glucose Lvl) 89 70-99 [facility]2015-12-14 15:29:00 Test Item Value Reference Range Interpretation Comments Potassium Lvl (test code = Potassium 4.2 3.5-5.1 Lvl) [facility]2015-12-14 15:29:00 Test Item Value Reference Range Interpretation Comments Sodium Lvl (test code = Sodium Lvl) 134 135-145 [facility]2015-12-14 15:29:00 Test Item Value Reference Range Interpretation Comments AGAP (test code = AGAP) 11.2 10.0-20.0 [facility] HeightsYqvytksLBHGOPIFFJ5799-36-33 15:29:00 Test Item Value Reference Range Interpretation Comments MPV (test code = MPV) 9.2 7.4-10.4 [facility] HeightsHopoyotUKYQUPAABM8048-75-03 15:29:00 Test Item Value Reference Range Interpretation Comments Platelet (test code = Platelet) 307 133-450 [facility] HeightsQgfqvgjETWYJHFFJU5319-38-76 15:29:00 Test Item Value Reference Range Interpretation Comments MCH (test code = MCH) 24.3 pg 27.0-31.0 [facility] HeightsJveaxdcLAHBIUQBFT8521-64-06 15:29:00 Test Item Value Reference Range Interpretation Comments RDW (test code = RDW) 15.7 11.5-14.5 [facility] HeightsLqxxhmrBTREHGWIYS2514-97-71 15:29:00 Test Item Value Reference Range Interpretation Comments MCHC (test code = MCHC) 31.2 32.0-36.0 [facility] HeightsOaobhxqSDBVNGEWRN2441-74-48 15:29:00 Test Item Value Reference Range Interpretation Comments MCV (test code = MCV) 78.0 80.0-98.0 [facility] HeightsXnpeklnDAWNIISOHD3943-99-48 15:29:00 Test Item Value Reference Range Interpretation Comments WBC (test code = WBC) 8.6 3.7-10.4 [facility] HeightsTjtswabBSESINDVNL9076-25-28 15:29:00 Test Item Value Reference Range Interpretation Comments Hgb (test code = Hgb) 13.2 12.0-16.0 [facility] HeightsJglzydeQKETKISDXQ4123-89-10 15:29:00 Test Item Value Reference Range Interpretation Comments RBC (test code = RBC) 5.41 4.20-5.40 [facility] HeightsSbxnzntXIKRTNGTDD4291-41-22 15:29:00 Test Item Value Reference Range Interpretation Comments Hct (test code = Hct) 42.1 36.0-48.0 [facility] HeightsErnpiilCVOMBDJTXZ2877-93-02 15:29:00 Test Item Value Reference Range Interpretation Comments Lymphocytes # (test code = Lymphocytes 3.2 1.0-5.5 #) [place]205-12-14 15:29:00 Test Item Value Reference Range Interpretation Comments Eosinophils # (test code 0.1 See_Comment [A utomated message] The = Eosinophils #) system whic h generated this result tra nsmitted reference range : <=0.5. The reference r kat was not used to int erpret this result as normal/abnormal . [facility] HeightsEfiostmRJIAUEDVQS6665-68-22 15:29:00 Test Item Value Reference Range Interpretation Comments Monocytes # (test code 0.8 See_Comment [Aut omated message] The = Monocytes #) system which generated this result tra nsmitted reference range : <=0.8. The reference r kat was not used to int erpret this result as normal/abnormal . [facility] HeightsRxzyhliSHZSJJTTTW6851-69-34 15:29:00 Test Item Value Reference Range Interpretation Comments Basophils (test code = 0.7 See_Comment [Aut omated message] The Basophils) system which ge nerated this result tra nsmitted reference range : <=1.0. The reference r kat was not used to int erpret this result as normal/abnormal . [facility] HeightsUknklffRQZJWDXWHU4210-91-19 15:29:00 Test Item Value Reference Range Interpretation Comments Segs-Bands # (test code = Segs-Bands #) 4.4 1.5-8.1 [facility] HeightsWbmwyttKDCLMMIZHX6541-61-88 15:29:00 Test Item Value Reference Range Interpretation Comments Eosinophils (test code = 1.2 See_Comment [A utomated message] The Eosinophils) system which ge nerated this result tra nsmitted reference range : <=4.0. The reference r kat was not used to int erpret this result as normal/abnormal . [facility] HeightsNtdqkncQMUZUKYJNO6010-94-47 15:29:00 Test Item Value Reference Range Interpretation Comments Lymphocytes (test code = Lymphocytes) 37.4 20.0-40.0 [facility] HeightsHkkojiyMLLJJYZJXG2416-70-29 15:29:00 Test Item Value Reference Range Interpretation Comments Monocytes (test code = Monocytes) 8.9 2.0-12.0 [facility] HeightsWbkvdguOHDLOOYFZM9263-51-72 15:29:00 Test Item Value Reference Range Interpretation Comments Segs (test code = Segs) 51.8 45.0-75.0 [facility] HeightsQxnicemSFRQCJQJJU4242-25-76 15:29:00 Test Item Value Reference Range Interpretation Comments Microcyte (test code = 1+ *ABN*(08/12/15 Microcyte) 9:29 AM) [facility] HeightsXsqbfkjYFEZQKKZQB9951-21-52 15:29:00 Test Item Value Reference Range Interpretation Comments Basophils # (test code 0.1 See_Comment [Aut omated message] The = Basophils #) system which generated this result tra nsmitted reference range : <=0.2. The reference r kat was not used to int erpret this result as normal/abnormal . [facility] [id number] 15:29:00 Test Item Value Reference Range Interpretation Comments U Preg (test code = U Negative (08/12/15 9:29 Preg) AM) [facility] [id number] 15:29:00 Test Item Value Reference Range Interpretation Comments eGFR (test code = eGFR) 101 [facility]2015-12-14 15:29:00 Test Item Value Reference Range Interpretation Comments Creatinine Lvl (test code = Creatinine 0.81 0.50-1.40 Lvl) [facility]2015-12-14 15:29:00 Test Item Value Reference Range Interpretation Comments CO2 (test code = CO2) 27 24-32 [facility]2015-12-14 15:29:00 Test Item Value Reference Range Interpretation Comments Calcium Lvl (test code = Calcium Lvl) 9.7 8.5-10.5 [facility]2015-12-14 15:29:00 Test Item Value Reference Range Interpretation Comments Chloride Lvl (test code = Chloride Lvl) 100 95-109 [facility]2015-12-14 15:29:00 Test Item Value Reference Range Interpretation Comments BUN (test code = BUN) 13 7-22 [facility]2015-12-14 15:29:00 Test Item Value Reference Range Interpretation Comments Glucose Lvl (test code = Glucose Lvl) 89 70-99 [facility]2015-12-14 15:29:00 Test Item Value Reference Range Interpretation Comments Potassium Lvl (test code = Potassium 4.2 3.5-5.1 Lvl) [facility]2015-12-14 15:29:00 Test Item Value Reference Range Interpretation Comments Sodium Lvl (test code = Sodium Lvl) 134 135-145 [facility]2015-12-14 15:29:00 Test Item Value Reference Range Interpretation Comments AGAP (test code = AGAP) 11.2 10.0-20.0 [facility] HeightsQggpabkNNBJGONLEN2410-21-40 15:29:00 Test Item Value Reference Range Interpretation Comments MPV (test code = MPV) 9.2 7.4-10.4 [facility] HeightsVbxaswzPDIBNOPRZU7565-41-09 15:29:00 Test Item Value Reference Range Interpretation Comments Platelet (test code = Platelet) 307 133-450 [facility] HeightsIobuwfjKOBQWXQYOT7637-44-94 15:29:00 Test Item Value Reference Range Interpretation Comments MCH (test code = MCH) 24.3 pg 27.0-31.0 [facility] HeightsHffsqdxWACQXIWJSS8180-69-12 15:29:00 Test Item Value Reference Range Interpretation Comments RDW (test code = RDW) 15.7 11.5-14.5 [facility] HeightsJttgonrPSUCLONZFU7741-25-16 15:29:00 Test Item Value Reference Range Interpretation Comments MCHC (test code = MCHC) 31.2 32.0-36.0 [facility] HeightsCumaqkuCBMBMQVZDR2338-06-53 15:29:00 Test Item Value Reference Range Interpretation Comments MCV (test code = MCV) 78.0 80.0-98.0 [facility] HeightsUgnwieqRZAOOOYWVO8154-90-60 15:29:00 Test Item Value Reference Range Interpretation Comments WBC (test code = WBC) 8.6 3.7-10.4 [facility] HeightsUaxvqijMNFRTOUTGI2449-90-64 15:29:00 Test Item Value Reference Range Interpretation Comments Hgb (test code = Hgb) 13.2 12.0-16.0 [facility] HeightsFfbgjdbVSQOTJKZOX6953-94-10 15:29:00 Test Item Value Reference Range Interpretation Comments RBC (test code = RBC) 5.41 4.20-5.40 [facility] HeightsNkdvpjjFBFHVVGGGK8424-39-83 15:29:00 Test Item Value Reference Range Interpretation Comments Hct (test code = Hct) 42.1 36.0-48.0 [facility] HeightsWidmhblOKKXFHCEKD5956-98-01 15:29:00 Test Item Value Reference Range Interpretation Comments Lymphocytes # (test code = Lymphocytes 3.2 1.0-5.5 #) [facility] HeightsZklfwkrAMMFEAOJBI9375-41-25 15:29:00 Test Item Value Reference Range Interpretation Comments Eosinophils # (test code 0.1 See_Comment [A utomated message] The = Eosinophils #) system whic h generated this result tra nsmitted reference range : <=0.5. The reference r kat was not used to int erpret this result as normal/abnormal . [facility] HeightsLzqqtsnGYOVSRDAKN2441-78-88 15:29:00 Test Item Value Reference Range Interpretation Comments Monocytes # (test code 0.8 See_Comment [Aut omated message] The = Monocytes #) system which generated this result tra nsmitted reference range : <=0.8. The reference r kat was not used to int erpret this result as normal/abnormal . [facility] HeightsUhuomipCMEUVSXWUP2375-50-66 15:29:00 Test Item Value Reference Range Interpretation Comments Basophils (test code = 0.7 See_Comment [Aut omated message] The Basophils) system which ge nerated this result tra nsmitted reference range : <=1.0. The reference r kat was not used to int erpret this result as normal/abnormal . [facility] HeightsImvukyoNVRLJFKAPC7996-99-31 15:29:00 Test Item Value Reference Range Interpretation Comments Segs-Bands # (test code = Segs-Bands #) 4.4 1.5-8.1 [facility] HeightsSeckjziUAGIVPLCEF9608-12-38 15:29:00 Test Item Value Reference Range Interpretation Comments Eosinophils (test code = 1.2 See_Comment [A utomated message] The Eosinophils) system which ge nerated this result tra nsmitted reference range : <=4.0. The reference r kat was not used to int erpret this result as normal/abnormal . [facility] HeightsMsfjabjRWZZTCWTLO5559-26-28 15:29:00 Test Item Value Reference Range Interpretation Comments Lymphocytes (test code = Lymphocytes) 37.4 20.0-40.0 [facility] HeightsJkplpssCFRDHKDRUZ0481-36-73 15:29:00 Test Item Value Reference Range Interpretation Comments Monocytes (test code = Monocytes) 8.9 2.0-12.0 [facility] HeightsGizbkkoYNKRFYKZER4963-07-54 15:29:00 Test Item Value Reference Range Interpretation Comments Segs (test code = Segs) 51.8 45.0-75.0 [facility] HeightsVjubwjyHPUVNBUYMM1956-99-49 15:29:00 Test Item Value Reference Range Interpretation Comments Microcyte (test code = 1+ *ABN*(08/12/15 Microcyte) 9:29 AM) [facility]OnalckkDRFXJUOXQO7242-56-55 15:29:00 Test Item Value Reference Range Interpretation Comments Basophils # (test code 0.1 See_Comment [Aut omated message] The = Basophils #) system which generated this result tra nsmitted reference range : <=0.2. The reference r kat was not used to int erpret this result as normal/abnormal . [facility] [id number] 15:29:00 Test Item Value Reference Range Interpretation Comments U Preg (test code = U Negative (08/12/15 9:29 Preg) AM) [facility] [id number] 15:29:00 Test Item Value Reference Range Interpretation Comments eGFR (test code = eGFR) 101 [facility]2015-12-14 15:29:00 Test Item Value Reference Range Interpretation Comments Creatinine Lvl (test code = Creatinine 0.81 0.50-1.40 Lvl) [facility]2015-12-14 15:29:00 Test Item Value Reference Range Interpretation Comments CO2 (test code = CO2) 27 24-32 [facility]2015-12-14 15:29:00 Test Item Value Reference Range Interpretation Comments Calcium Lvl (test code = Calcium Lvl) 9.7 8.5-10.5 [facility]2015-12-14 15:29:00 Test Item Value Reference Range Interpretation Comments Chloride Lvl (test code = Chloride Lvl) 100 95-109 [facility]2015-12-14 15:29:00 Test Item Value Reference Range Interpretation Comments BUN (test code = BUN) 13 7-22 [facility]2015-12-14 15:29:00 Test Item Value Reference Range Interpretation Comments Glucose Lvl (test code = Glucose Lvl) 89 70-99 [facility]2015-12-14 15:29:00 Test Item Value Reference Range Interpretation Comments Potassium Lvl (test code = Potassium 4.2 3.5-5.1 Lvl) [facility] [id number] 15:29:00 Test Item Value Reference Range Interpretation Comments Sodium Lvl (test code = Sodium Lvl) 134 135-145 [facility]2015-12-14 15:29:00 Test Item Value Reference Range Interpretation Comments AGAP (test code = AGAP) 11.2 10.0-20.0 [facility] HeightsEzcqvlnVOUHEPRIZP4872-17-95 15:29:00 Test Item Value Reference Range Interpretation Comments MPV (test code = MPV) 9.2 7.4-10.4 [facility] HeightsKrdjtlbGSTWQXLFXH1664-25-55 15:29:00 Test Item Value Reference Range Interpretation Comments Platelet (test code = Platelet) 307 133-450 [facility] HeightsSsjnubvHQPSVFGYXD5179-25-68 15:29:00 Test Item Value Reference Range Interpretation Comments MCH (test code = MCH) 24.3 pg 27.0-31.0 [facility] HeightsGcjkbrpIBMCLMWYCH5274-05-25 15:29:00 Test Item Value Reference Range Interpretation Comments RDW (test code = RDW) 15.7 11.5-14.5 [facility] HeightsWubcwcdLLCWTSIAJK1078-97-09 15:29:00 Test Item Value Reference Range Interpretation Comments MCHC (test code = MCHC) 31.2 32.0-36.0 [facility] HeightsFvynkckCBLWJKDKKB3016-84-68 15:29:00 Test Item Value Reference Range Interpretation Comments MCV (test code = MCV) 78.0 80.0-98.0 [facility] HeightsBarmqlgACFWJKRPIW8745-24-14 15:29:00 Test Item Value Reference Range Interpretation Comments WBC (test code = WBC) 8.6 3.7-10.4 [facility] HeightsAdmpyzlPNOGRVIQIZ4903-51-48 15:29:00 Test Item Value Reference Range Interpretation Comments Hgb (test code = Hgb) 13.2 12.0-16.0 [facility] HeightsJulwwliJFKLOKZJJO9493-22-51 15:29:00 Test Item Value Reference Range Interpretation Comments RBC (test code = RBC) 5.41 4.20-5.40 [facility] HeightsLzaubdpPZOIAWZYLG8510-20-74 15:29:00 Test Item Value Reference Range Interpretation Comments Hct (test code = Hct) 42.1 36.0-48.0 [facility] HeightsVmnvqecGLYEDURBXU9697-35-64 15:29:00 Test Item Value Reference Range Interpretation Comments Lymphocytes # (test code = Lymphocytes 3.2 1.0-5.5 #) [facility] HeightsDqnccbgKECFPPAJDS5460-73-82 15:29:00 Test Item Value Reference Range Interpretation Comments Eosinophils # (test code 0.1 See_Comment [A utomated message] The = Eosinophils #) system whic h generated this result tra nsmitted reference range : <=0.5. The reference r kat was not used to int erpret this result as normal/abnormal . [facility] HeightsMtwlkraIEKSQTGIQI1741-29-59 15:29:00 Test Item Value Reference Range Interpretation Comments Monocytes # (test code 0.8 See_Comment [Aut omated message] The = Monocytes #) system which generated this result tra nsmitted reference range : <=0.8. The reference r kat was not used to int erpret this result as normal/abnormal . [facility] HeightsColmahuTTUBZWBWSV9741-01-08 15:29:00 Test Item Value Reference Range Interpretation Comments Basophils (test code = 0.7 See_Comment [Aut omated message] The Basophils) system which ge nerated this result tra nsmitted reference range : <=1.0. The reference r kat was not used to int erpret this result as normal/abnormal . [facility] HeightsUgjfhreXWDAADPIBE4818-03-84 15:29:00 Test Item Value Reference Range Interpretation Comments Segs-Bands # (test code = Segs-Bands #) 4.4 1.5-8.1 [facility] HeightsPfnrxdbTNYZACCQEG3435-56-77 15:29:00 Test Item Value Reference Range Interpretation Comments Eosinophils (test code = 1.2 See_Comment [A utomated message] The Eosinophils) system which ge nerated this result tra nsmitted reference range : <=4.0. The reference r kat was not used to int erpret this result as normal/abnormal . [facility] HeightsKyqnpmoPJSHVEJGWK9906-58-14 15:29:00 Test Item Value Reference Range Interpretation Comments Lymphocytes (test code = Lymphocytes) 37.4 20.0-40.0 [facility] HeightsJijcuykEAHLNHRFBE3368-19-44 15:29:00 Test Item Value Reference Range Interpretation Comments Monocytes (test code = Monocytes) 8.9 2.0-12.0 [facility] HeightsTbvfkerBXZWCEKVVP4550-85-20 15:29:00 Test Item Value Reference Range Interpretation Comments Segs (test code = Segs) 51.8 45.0-75.0 [facility] HeightsTretgjdJVWHDSUYTY3385-45-34 15:29:00 Test Item Value Reference Range Interpretation Comments Microcyte (test code = 1+ *ABN*(08/12/15 Microcyte) 9:29 AM) [facility] HeightsGsjkzvfBUJAFCUXQG4357-23-23 15:29:00 Test Item Value Reference Range Interpretation Comments Basophils # (test code 0.1 See_Comment [Aut omated message] The = Basophils #) system which generated this result tra nsmitted reference range : <=0.2. The reference r kat was not used to int erpret this result as normal/abnormal . [facility]2015-12-14 15:29:00 Test Item Value Reference Range Interpretation Comments U Preg (test code = U Negative (08/12/15 9:29 Preg) AM) [facility]2015-10-26 15:15:00 Test Item Value Reference Range Interpretation Comments U Preg (test code = U Negative (06/24/15 10:15 Preg) AM) [facility]WE[facility]ITALKMMD6069-74-74 15:15:00 Test Item Value Reference Range Interpretation Comments U Preg (test code = U Negative (06/24/15 10:15 Preg) AM) [facility] [id number] 15:15:00 Test Item Value Reference Range Interpretation Comments U Preg (test code = U Negative (06/24/15 10:15 Preg) AM) [facility]annWESTWO[facility]OD[facility] HOSPITALYDMA9429-68-10 15:15:00 Test Item Value Reference Range Interpretation Comments U Preg (test code = U Negative (06/24/15 10:15 Preg) AM) [facility]annWESTWO[facility] LOD[facility] HOSPITALSVUX5162-02-14 15:15:00 Test Item Value Reference Range Interpretation Comments U Preg (test code = U Negative (06/24/15 10:15 Preg) AM) [facility]UR[facility] [id number] 15:15:00 Test Item Value Reference Range Interpretation Comments U Preg (test code = U Negative (06/24/15 10:15 Preg) AM) [facility]UR[facility] [id number] 15:15:00 Test Item Value Reference Range Interpretation Comments U Preg (test code = U Negative (06/24/15 10:15 Preg) AM) [facility] [id number] 15:15:00 Test Item Value Reference Range Interpretation Comments U Preg (test code = U Negative (06/24/15 10:15 Preg) AM) [facility] [id number] 15:15:00 Test Item Value Reference Range Interpretation Comments U Preg (test code = U Negative (06/24/15 10:15 Preg) AM) [facility] NMJG1666-05-23 15:15:00 Test Item Value Reference Range Interpretation Comments U Preg (test code = U Negative (06/24/15 10:15 Preg) AM) [facility] [id number] 15:15:00 Test Item Value Reference Range Interpretation Comments U Preg (test code = U Negative (06/24/15 10:15 Preg) AM) [facility] [id number] 15:15:00 Test Item Value Reference Range Interpretation Comments U Preg (test code = U Negative (06/24/15 10:15 Preg) AM) [facility] [id number] 15:15:00 Test Item Value Reference Range Interpretation Comments U Preg (test code = U Negative (06/24/15 10:15 Preg) AM) [facility]annURINE [id number] 15:15:00 Test Item Value Reference Range Interpretation Comments U Preg (test code = U Negative (06/24/15 10:15 Preg) AM) [facility] [facility] [id number] 15:15:00 Test Item Value Reference Range Interpretation Comments U Preg (test code = U Negative (06/24/15 10:15 Preg) AM) [facility] [id number] 15:15:00 Test Item Value Reference Range Interpretation Comments U Preg (test code = U Negative (06/24/15 10:15 Preg) AM) [facility] [id number] 22:58:56 Test Item Value Reference Range Interpretation Comments U Cotinine Lvl (test Negative *NA*(06/07/15 code = U Cotinine Lvl) 5:58 PM) [facility] [id number] 22:58:56 Test Item Value Reference Range Interpretation Comments U Preg (test code = U Negative (06/07/15 5:58 Preg) PM) [facility] [id number] 22:58:56 Test Item Value Reference Range Interpretation Comments U Cotinine Lvl (test Negative *NA*(06/07/15 code = U Cotinine Lvl) 5:58 PM) [facility]2015-10-09 22:58:56 Test Item Value Reference Range Interpretation Comments U Preg (test code = U Negative (06/07/15 5:58 Preg) PM) [facility]2015-10-09 22:58:56 Test Item Value Reference Range Interpretation Comments U Cotinine Lvl (test Negative *NA*(06/07/15 code = U Cotinine Lvl) 5:58 PM) [facility]2015-10-09 22:58:56 Test Item Value Reference Range Interpretation Comments U Preg (test code = U Negative (06/07/15 5:58 Preg) PM) [facility]2015-10-09 22:58:56 Test Item Value Reference Range Interpretation Comments U Cotinine Lvl (test Negative *NA*(06/07/15 code = U Cotinine Lvl) 5:58 PM) [facility]2015-10-09 22:58:56 Test Item Value Reference Range Interpretation Comments U Preg (test code = U Negative (06/07/15 5:58 Preg) PM) [facility]2015-10-09 22:58:56 Test Item Value Reference Range Interpretation Comments U Cotinine Lvl (test Negative *NA*(06/07/15 code = U Cotinine Lvl) 5:58 PM) [facility]2015-10-09 22:58:56 Test Item Value Reference Range Interpretation Comments U Preg (test code = U Negative (06/07/15 5:58 Preg) PM) [facility]2015-10-09 22:58:56 Test Item Value Reference Range Interpretation Comments U Cotinine Lvl (test Negative *NA*(06/07/15 code = U Cotinine Lvl) 5:58 PM) [facility]2015-10-09 22:58:56 Test Item Value Reference Range Interpretation Comments U Preg (test code = U Negative (06/07/15 5:58 Preg) PM) [facility]2015-10-09 22:58:56 Test Item Value Reference Range Interpretation Comments U Cotinine Lvl (test Negative *NA*(06/07/15 code = U Cotinine Lvl) 5:58 PM) [facility]2015-10-09 22:58:56 Test Item Value Reference Range Interpretation Comments U Preg (test code = U Negative (06/07/15 5:58 Preg) PM) [facility]2015-10-09 22:58:56 Test Item Value Reference Range Interpretation Comments U Cotinine Lvl (test Negative *NA*(06/07/15 code = U Cotinine Lvl) 5:58 PM) [facility]2015-10-09 22:58:56 Test Item Value Reference Range Interpretation Comments U Preg (test code = U Negative (06/07/15 5:58 Preg) PM) [facility]2015-10-09 22:58:56 Test Item Value Reference Range Interpretation Comments U Cotinine Lvl (test Negative *NA*(06/07/15 code = U Cotinine Lvl) 5:58 PM) [facility]2015-10-09 22:58:56 Test Item Value Reference Range Interpretation Comments U Preg (test code = U Negative (06/07/15 5:58 Preg) PM) [facility]2015-10-09 22:58:56 Test Item Value Reference Range Interpretation Comments U Cotinine Lvl (test Negative *NA*(06/07/15 code = U Cotinine Lvl) 5:58 PM) [facility]2015-10-09 22:58:56 Test Item Value Reference Range Interpretation Comments U Preg (test code = U Negative (06/07/15 5:58 Preg) PM) [facility]2015-10-09 22:58:56 Test Item Value Reference Range Interpretation Comments U Cotinine Lvl (test Negative *NA*(06/07/15 code = U Cotinine Lvl) 5:58 PM) [facility]2015-10-09 22:58:56 Test Item Value Reference Range Interpretation Comments U Preg (test code = U Negative (06/07/15 5:58 Preg) PM) [facility]2015-10-09 22:58:56 Test Item Value Reference Range Interpretation Comments U Cotinine Lvl (test Negative *NA*(06/07/15 code = U Cotinine Lvl) 5:58 PM) [facility]2015-10-09 22:58:56 Test Item Value Reference Range Interpretation Comments U Preg (test code = U Negative (06/07/15 5:58 Preg) PM) [facility]2015-10-09 22:58:56 Test Item Value Reference Range Interpretation Comments U Cotinine Lvl (test Negative *NA*(06/07/15 code = U Cotinine Lvl) 5:58 PM) [facility]2015-10-09 22:58:56 Test Item Value Reference Range Interpretation Comments U Preg (test code = U Negative (06/07/15 5:58 Preg) PM) [facility]2015-10-09 22:58:56 Test Item Value Reference Range Interpretation Comments U Cotinine Lvl (test Negative *NA*(06/07/15 code = U Cotinine Lvl) 5:58 PM) [facility]2015-10-09 22:58:56 Test Item Value Reference Range Interpretation Comments U Preg (test code = U Negative (06/07/15 5:58 Preg) PM) [facility]2015-10-09 22:58:56 Test Item Value Reference Range Interpretation Comments U Cotinine Lvl (test Negative *NA*(06/07/15 code = U Cotinine Lvl) 5:58 PM) [facility]2015-10-09 22:58:56 Test Item Value Reference Range Interpretation Comments U Preg (test code = U Negative (06/07/15 5:58 Preg) PM) [facility]2015-10-09 22:58:56 Test Item Value Reference Range Interpretation Comments U Cotinine Lvl (test Negative *NA*(06/07/15 code = U Cotinine Lvl) 5:58 PM) [facility]2015-10-09 22:58:56 Test Item Value Reference Range Interpretation Comments U Preg (test code = U Negative (06/07/15 5:58 Preg) PM) [facility]2015-10-09 22:53:19 Test Item Value Reference Range Interpretation Comments B/C Ratio (test code = B/C Ratio) 13 6-25 [facility]2015-10-09 22:53:19 Test Item Value Reference Range Interpretation Comments Globulin (test code = Globulin) 3.6 2.0-4.0 [facility]2015-10-09 22:53:19 Test Item Value Reference Range Interpretation Comments Magnesium Lvl (test code = Magnesium 1.8 1.8-2.4 Lvl) [id number] 22:53:19 Test Item Value Reference Range Interpretation Comments Segs (test code = Segs) 57.5 45.0-75.0 [facility] HeightsNdhtlcdJYTLRNILGP9371-04-02 22:53:19 Test Item Value Reference Range Interpretation Comments Monocytes (test code = Monocytes) 7.6 2.0-12.0 [facility] Heigh[id number] 22:53:19 Test Item Value Reference Range Interpretation Comments Basophils (test code = 1.0 See_Comment [Aut omated message] The Basophils) system which ge nerated this result tra nsmitted reference range : <=1.0. The reference r kat was not used to int erpret this result as normal/abnormal . [facility] Heigh[id number] 22:53:19 Test Item Value Reference Range Interpretation Comments Lymphocytes (test code = Lymphocytes) 32.9 20.0-40.0 [facility] HeightsHsixlsqRXWGEZRXZS1743-70-99 22:53:19 Test Item Value Reference Range Interpretation Comments Eosinophils (test code = 1.0 See_Comment [A utomated message] The Eosinophils) system which ge nerated this result tra nsmitted reference range : <=4.0. The reference r kat was not used to int erpret this result as normal/abnormal . [facility] HeightsRubtjjlQNOLQSPWUC6664-20-77 22:53:19 Test Item Value Reference Range Interpretation Comments Lymphocytes # (test code = Lymphocytes 3.8 1.0-5.5 #) [facility] HeightsFcrepqyQREHDGGNBO7259-98-01 22:53:19 Test Item Value Reference Range Interpretation Comments Segs-Bands # (test code = Segs-Bands #) 6.6 1.5-8.1 [facility] HeightsGfjxuawOZLGRLTDGU8807-48-34 22:53:19 Test Item Value Reference Range Interpretation Comments Eosinophils # (test code 0.1 See_Comment [A utomated message] The = Eosinophils #) system whic h generated this result tra nsmitted reference range : <=0.5. The reference r kat was not used to int erpret this result as normal/abnormal . [facility] HeightsEpkhudrSMCEJGVVUR1031-72-83 22:53:19 Test Item Value Reference Range Interpretation Comments Monocytes # (test code 0.9 See_Comment [Aut omated message] The = Monocytes #) system which generated this result tra nsmitted reference range : <=0.8. The reference r kat was not used to int erpret this result as normal/abnormal . [facility] HeightsWgdogpbDNLROIQJGU4687-01-74 22:53:19 Test Item Value Reference Range Interpretation Comments Microcyte (test code = 1+ *ABN*(06/07/15 Microcyte) 5:53 PM) [facility] HeightsGzdknjlKYGFPDIQMM7918-37-39 22:53:19 Test Item Value Reference Range Interpretation Comments Basophils # (test code 0.1 See_Comment [Aut omated message] The = Basophils #) system which generated this result tra nsmitted reference range : <=0.2. The reference r kat was not used to int erpret this result as normal/abnormal . [facility] HeightsLembwhdVOBLWQYXIY0603-15-26 22:53:19 Test Item Value Reference Range Interpretation Comments RBC (test code = RBC) 5.23 4.20-5.40 [facility] HeightsDtitqvoVXYDYPXFTB0945-37-59 22:53:19 Test Item Value Reference Range Interpretation Comments Platelet (test code = Platelet) 241 133-450 [facility] HeightsHwmppjcKXITSTQMGO0551-54-61 22:53:19 Test Item Value Reference Range Interpretation Comments MPV (test code = MPV) 9.3 7.4-10.4 [facility] HeightsBtgeypdESOZDJCDBL3929-68-28 22:53:19 Test Item Value Reference Range Interpretation Comments RDW (test code = RDW) 16.5 11.5-14.5 [facility] HeightsCvnjojeVYZZHBQDKH9412-08-57 22:53:19 Test Item Value Reference Range Interpretation Comments Hct (test code = Hct) 41.0 36.0-48.0 [facility] HeightsRehpnzwBNXVGSBKCL5148-36-74 22:53:19 Test Item Value Reference Range Interpretation Comments Hgb (test code = Hgb) 12.7 12.0-16.0 [facility] HeightsFzoizikPSBSJEBVQW4448-75-47 22:53:19 Test Item Value Reference Range Interpretation Comments WBC (test code = WBC) 11.5 3.7-10.4 [facility] HeightsRvqlkjoYWLISYMRHH8698-31-75 22:53:19 Test Item Value Reference Range Interpretation Comments MCH (test code = MCH) 24.3 pg 27.0-31.0 [facility] HeightsAbsrsufHHKZASVMFG2759-84-20 22:53:19 Test Item Value Reference Range Interpretation Comments MCHC (test code = MCHC) 31.0 32.0-36.0 [facility] [id number] 22:53:19 Test Item Value Reference Range Interpretation Comments MCV (test code = MCV) 78.4 80.0-98.0 [facility]2015-10-09 22:53:19 Test Item Value Reference Range Interpretation Comments FTI (test code = FTI) 2.5 [facility]2015-10-09 22:53:19 Test Item Value Reference Range Interpretation Comments TSH (test code = TSH) 1.540 0.360-3.740 [facility]2015-10-09 22:53:19 Test Item Value Reference Range Interpretation Comments T3 Uptake (test code = T3 Uptake) 31 31-39 [facility]2015-10-09 22:53:19 Test Item Value Reference Range Interpretation Comments T4 (test code = T4) 8.0 4.7-13.3 [facility]2015-10-09 22:53:19 Test Item Value Reference Range Interpretation Comments Transferrin (test code = Transferrin) 256 212-360 [facility]2015-10-09 22:53:19 Test Item Value Reference Range Interpretation Comments Vitamin B12 Lvl (test code = Vitamin [phone] B12 Lvl) [facility]2015-10-09 22:53:19 Test Item Value Reference Range Interpretation Comments eGFR (test code = eGFR) 70 [facility]2015-10-09 22:53:19 Test Item Value Reference Range Interpretation Comments Glucose Lvl (test code = Glucose Lvl) 103 70-99 [facility]2015-10-09 22:53:19 Test Item Value Reference Range Interpretation Comments Albumin Lvl (test code = Albumin Lvl) 3.6 3.5-5.0 [facility]2015-10-09 22:53:19 Test Item Value Reference Range Interpretation Comments CO2 (test code = CO2) 24 24-32 [facility]2015-10-09 22:53:19 Test Item Value Reference Range Interpretation Comments Total Protein (test code = Total 7.2 6.4-8.4 Protein) [facility]2015-10-09 22:53:19 Test Item Value Reference Range Interpretation Comments Creatinine Lvl (test code = Creatinine 1.1 0.5-1.4 Lvl) [facility]2015-10-09 22:53:19 Test Item Value Reference Range Interpretation Comments BUN (test code = BUN) 14 7-22 [facility]2015-10-09 22:53:19 Test Item Value Reference Range Interpretation Comments AST (test code = AST) 12 See_Comment [Auto mated message] The system which ge nerated this result transmit arvind reference range : <=37. The reference range was not used to interpr et this result as mario l/abnormal. [facility]2015-10-09 22:53:19 Test Item Value Reference Range Interpretation Comments ALT (test code = ALT) 41 See_Comment [Auto mated message] The system which ge nerated this result transmit arvind reference range : <=65. The reference range was not used to interpr et this result as mario l/abnormal. [facility]2015-10-09 22:53:19 Test Item Value Reference Range Interpretation Comments Alk Phos (test code = Alk Phos) 100 39-136 [facility]2015-10-09 22:53:19 Test Item Value Reference Range Interpretation Comments Bili Total (test code = Bili Total) 0.2 0.2-1.3 [facility]2015-10-09 22:53:19 Test Item Value Reference Range Interpretation Comments Potassium Lvl (test code = Potassium 3.9 3.5-5.1 Lvl) [facility]2015-10-09 22:53:19 Test Item Value Reference Range Interpretation Comments Sodium Lvl (test code = Sodium Lvl) 141 135-145 [facility]2015-10-09 22:53:19 Test Item Value Reference Range Interpretation Comments Calcium Lvl (test code = Calcium Lvl) 9.0 8.5-10.5 [facility]2015-10-09 22:53:19 Test Item Value Reference Range Interpretation Comments Chloride Lvl (test code = Chloride Lvl) 109 95-109 [facility]2015-10-09 22:53:19 Test Item Value Reference Range Interpretation Comments AGAP (test code = AGAP) 11.9 10.0-20.0 [facility]2015-10-09 22:53:19 Test Item Value Reference Range Interpretation Comments A/G Ratio (test code = A/G Ratio) 1.0 0.7-1.6 [facility]2015-10-09 22:53:19 Test Item Value Reference Range Interpretation Comments B/C Ratio (test code = B/C Ratio) 13 6-25 [facility]2015-10-09 22:53:19 Test Item Value Reference Range Interpretation Comments Globulin (test code = Globulin) 3.6 2.0-4.0 [facility]2015-10-09 22:53:19 Test Item Value Reference Range Interpretation Comments Magnesium Lvl (test code = Magnesium 1.8 1.8-2.4 Lvl) [facility] HeightsZhkxlbmAFKLJYBAJB0592-76-44 22:53:19 Test Item Value Reference Range Interpretation Comments Segs (test code = Segs) 57.5 45.0-75.0 [facility] HeightsMwjmcusSKWFBDRQBV0337-99-78 22:53:19 Test Item Value Reference Range Interpretation Comments Monocytes (test code = Monocytes) 7.6 2.0-12.0 [facility] HeightsNobybttRIBPNSTJLJ8218-27-99 22:53:19 Test Item Value Reference Range Interpretation Comments Basophils (test code = 1.0 See_Comment [Aut omated message] The Basophils) system which ge nerated this result tra nsmitted reference range : <=1.0. The reference r kat was not used to int erpret this result as normal/abnormal . [facility] HeightsAgtqkpxEDEYCYYAZL3504-02-14 22:53:19 Test Item Value Reference Range Interpretation Comments Lymphocytes (test code = Lymphocytes) 32.9 20.0-40.0 [facility] HeightsSuyyhlkKTUDBOJUWS9761-57-11 22:53:19 Test Item Value Reference Range Interpretation Comments Eosinophils (test code = 1.0 See_Comment [A utomated message] The Eosinophils) system which ge nerated this result tra nsmitted reference range : <=4.0. The reference r kat was not used to int erpret this result as normal/abnormal . [facility] HeightsZoqsikbRRMMWSLYAG3633-49-30 22:53:19 Test Item Value Reference Range Interpretation Comments Lymphocytes # (test code = Lymphocytes 3.8 1.0-5.5 #) [facility] HeightsKweoulaOTMIKFKXWN2539-71-88 22:53:19 Test Item Value Reference Range Interpretation Comments Segs-Bands # (test code = Segs-Bands #) 6.6 1.5-8.1 [facility] HeightsQugcykzBYDEYFWKNT2212-00-65 22:53:19 Test Item Value Reference Range Interpretation Comments Eosinophils # (test code 0.1 See_Comment [A utomated message] The = Eosinophils #) system whic h generated this result tra nsmitted reference range : <=0.5. The reference r kat was not used to int erpret this result as normal/abnormal . [facility] HeightsNonxpsmXODCNUUMKZ8382-40-16 22:53:19 Test Item Value Reference Range Interpretation Comments Monocytes # (test code 0.9 See_Comment [Aut omated message] The = Monocytes #) system which generated this result tra nsmitted reference range : <=0.8. The reference r kat was not used to int erpret this result as normal/abnormal . [facility] HeightsEzxqjlgCLJARMHZWQ0051-76-61 22:53:19 Test Item Value Reference Range Interpretation Comments Microcyte (test code = 1+ *ABN*(06/07/15 Microcyte) 5:53 PM) [facility] HeightsPvgipztADGUPZQLWQ2566-13-89 22:53:19 Test Item Value Reference Range Interpretation Comments Basophils # (test code 0.1 See_Comment [Aut omated message] The = Basophils #) system which generated this result tra nsmitted reference range : <=0.2. The reference r kat was not used to int erpret this result as normal/abnormal . [facility] HeightsAndefnwHCEHUNJBCZ0243-52-24 22:53:19 Test Item Value Reference Range Interpretation Comments RBC (test code = RBC) 5.23 4.20-5.40 [facility] HeightsMddhpppFAPPWSNLQR5431-75-82 22:53:19 Test Item Value Reference Range Interpretation Comments Platelet (test code = Platelet) 241 133-450 [facility] HeightsBkmqmwxXEBLVRKSZE6172-23-08 22:53:19 Test Item Value Reference Range Interpretation Comments MPV (test code = MPV) 9.3 7.4-10.4 [facility] HeightsGuvvaztDMWOEUJRME2503-44-85 22:53:19 Test Item Value Reference Range Interpretation Comments RDW (test code = RDW) 16.5 11.5-14.5 [facility] HeightsItdjozqNYHITKMNNT0116-38-53 22:53:19 Test Item Value Reference Range Interpretation Comments Hct (test code = Hct) 41.0 36.0-48.0 [facility] HeightsHobeyzoMKIUPJJZBI1497-59-43 22:53:19 Test Item Value Reference Range Interpretation Comments Hgb (test code = Hgb) 12.7 12.0-16.0 [facility] HeightsLulqlzfCJATAPUSQJ3431-05-11 22:53:19 Test Item Value Reference Range Interpretation Comments WBC (test code = WBC) 11.5 3.7-10.4 [facility] HeightsUwnmaqyQVZAPJETGJ7414-90-13 22:53:19 Test Item Value Reference Range Interpretation Comments MCH (test code = MCH) 24.3 pg 27.0-31.0 [facility] HeightsBcovpisMGDSEKSXDH0540-04-83 22:53:19 Test Item Value Reference Range Interpretation Comments MCHC (test code = MCHC) 31.0 32.0-36.0 [facility] HeightsAazinckHOXVSMRRFW0181-42-75 22:53:19 Test Item Value Reference Range Interpretation Comments MCV (test code = MCV) 78.4 80.0-98.0 [facility]RLJWE6391-86-14 22:53:19 Test Item Value Reference Range Interpretation Comments FTI (test code = FTI) 2.5 [facility]2015-10-09 22:53:19 Test Item Value Reference Range Interpretation Comments TSH (test code = TSH) 1.540 0.360-3.740 [facility]2015-10-09 22:53:19 Test Item Value Reference Range Interpretation Comments T3 Uptake (test code = T3 Uptake) 31 31-39 [facility]2015-10-09 22:53:19 Test Item Value Reference Range Interpretation Comments T4 (test code = T4) 8.0 4.7-13.3 [facility]2015-10-09 22:53:19 Test Item Value Reference Range Interpretation Comments Transferrin (test code = Transferrin) 256 212-360 [facility]2015-10-09 22:53:19 Test Item Value Reference Range Interpretation Comments Vitamin B12 Lvl (test code = Vitamin [phone] B12 Lvl) [facility]2015-10-09 22:53:19 Test Item Value Reference Range Interpretation Comments eGFR (test code = eGFR) 70 [facility]2015-10-09 22:53:19 Test Item Value Reference Range Interpretation Comments Glucose Lvl (test code = Glucose Lvl) 103 70-99 [facility]2015-10-09 22:53:19 Test Item Value Reference Range Interpretation Comments Albumin Lvl (test code = Albumin Lvl) 3.6 3.5-5.0 [place] 372445-10-09 22:53:19 Test Item Value Reference Range Interpretation Comments CO2 (test code = CO2) 24 24-32 [facility]2015-10-09 22:53:19 Test Item Value Reference Range Interpretation Comments Total Protein (test code = Total 7.2 6.4-8.4 Protein) [facility]2015-10-09 22:53:19 Test Item Value Reference Range Interpretation Comments Creatinine Lvl (test code = Creatinine 1.1 0.5-1.4 Lvl) [facility]2015-10-09 22:53:19 Test Item Value Reference Range Interpretation Comments BUN (test code = BUN) 14 7-22 [facility]2015-10-09 22:53:19 Test Item Value Reference Range Interpretation Comments AST (test code = AST) 12 See_Comment [Auto mated message] The system which ge nerated this result transmit arvind reference range : <=37. The reference range was not used to interpr et this result as mario l/abnormal. [facility]2015-10-09 22:53:19 Test Item Value Reference Range Interpretation Comments ALT (test code = ALT) 41 See_Comment [Auto mated message] The system which ge nerated this result transmit arvind reference range : <=65. The reference range was not used to interpr et this result as mario l/abnormal. [facility]2015-10-09 22:53:19 Test Item Value Reference Range Interpretation Comments Alk Phos (test code = Alk Phos) 100 39-136 [facility]2015-10-09 22:53:19 Test Item Value Reference Range Interpretation Comments Bili Total (test code = Bili Total) 0.2 0.2-1.3 [facility]2015-10-09 22:53:19 Test Item Value Reference Range Interpretation Comments Potassium Lvl (test code = Potassium 3.9 3.5-5.1 Lvl) [facility]2015-10-09 22:53:19 Test Item Value Reference Range Interpretation Comments Sodium Lvl (test code = Sodium Lvl) 141 135-145 [facility]2015-10-09 22:53:19 Test Item Value Reference Range Interpretation Comments Calcium Lvl (test code = Calcium Lvl) 9.0 8.5-10.5 [facility]2015-10-09 22:53:19 Test Item Value Reference Range Interpretation Comments Chloride Lvl (test code = Chloride Lvl) 109 95-109 [facility]2015-10-09 22:53:19 Test Item Value Reference Range Interpretation Comments AGAP (test code = AGAP) 11.9 10.0-20.0 [facility]2015-10-09 22:53:19 Test Item Value Reference Range Interpretation Comments A/G Ratio (test code = A/G Ratio) 1.0 0.7-1.6 [facility]2015-10-09 22:53:19 Test Item Value Reference Range Interpretation Comments B/C Ratio (test code = B/C Ratio) 13 6-25 [facility]2015-10-09 22:53:19 Test Item Value Reference Range Interpretation Comments Globulin (test code = Globulin) 3.6 2.0-4.0 [facility]2015-10-09 22:53:19 Test Item Value Reference Range Interpretation Comments Magnesium Lvl (test code = Magnesium 1.8 1.8-2.4 Lvl) [facility]NodqaxjXGJBGOXDLK6083-64-13 22:53:19 Test Item Value Reference Range Interpretation Comments Segs (test code = Segs) 57.5 45.0-75.0 [facility] HeightsJdcitswZHNRZIXATA9568-18-30 22:53:19 Test Item Value Reference Range Interpretation Comments Monocytes (test code = Monocytes) 7.6 2.0-12.0 [facility] HeightsIeqktzhFQEKHLARUH6987-79-64 22:53:19 Test Item Value Reference Range Interpretation Comments Basophils (test code = 1.0 See_Comment [Aut omated message] The Basophils) system which ge nerated this result tra nsmitted reference range : <=1.0. The reference r kat was not used to int erpret this result as normal/abnormal . [facility] HeightsCducxcuQBKHGQQEBU1031-25-85 22:53:19 Test Item Value Reference Range Interpretation Comments Lymphocytes (test code = Lymphocytes) 32.9 20.0-40.0 [facility] HeightsJufbnokCRSQQVXTJX0273-29-02 22:53:19 Test Item Value Reference Range Interpretation Comments Eosinophils (test code = 1.0 See_Comment [A utomated message] The Eosinophils) system which ge nerated this result tra nsmitted reference range : <=4.0. The reference r kat was not used to int erpret this result as normal/abnormal . [facility] HeightsSoaybvoJUPDWFOCSQ0743-38-65 22:53:19 Test Item Value Reference Range Interpretation Comments Lymphocytes # (test code = Lymphocytes 3.8 1.0-5.5 #) [facility] HeightsUzxylhaRRBCYIMVWZ5925-95-58 22:53:19 Test Item Value Reference Range Interpretation Comments Segs-Bands # (test code = Segs-Bands #) 6.6 1.5-8.1 [facility] HeightsXfcnhhfHHGMMMNOLC5760-89-27 22:53:19 Test Item Value Reference Range Interpretation Comments Eosinophils # (test code 0.1 See_Comment [A utomated message] The = Eosinophils #) system whic h generated this result tra nsmitted reference range : <=0.5. The reference r kat was not used to int erpret this result as normal/abnormal . [facility] HeightsJvlzvydQTEDJTCXDK8718-70-75 22:53:19 Test Item Value Reference Range Interpretation Comments Monocytes # (test code 0.9 See_Comment [Aut omated message] The = Monocytes #) system which generated this result tra nsmitted reference range : <=0.8. The reference r kat was not used to int erpret this result as normal/abnormal . [facility] HeightsGsyualeGDSVLOQYLC8088-64-38 22:53:19 Test Item Value Reference Range Interpretation Comments Microcyte (test code = 1+ *ABN*(06/07/15 Microcyte) 5:53 PM) [facility] HeightsSekjqvnRBXENWRSEX3483-75-99 22:53:19 Test Item Value Reference Range Interpretation Comments Basophils # (test code 0.1 See_Comment [Aut omated message] The = Basophils #) system which generated this result tra nsmitted reference range : <=0.2. The reference r kat was not used to int erpret this result as normal/abnormal . [facility] HeightsVlimjmwKPAKTXRRXX0739-87-68 22:53:19 Test Item Value Reference Range Interpretation Comments RBC (test code = RBC) 5.23 4.20-5.40 [facility] HeightsKseuvcmZMLIBIZLHK0261-18-58 22:53:19 Test Item Value Reference Range Interpretation Comments Platelet (test code = Platelet) 241 133-450 [facility] HeightsUkgwonjROXXCZIXTN8037-51-85 22:53:19 Test Item Value Reference Range Interpretation Comments MPV (test code = MPV) 9.3 7.4-10.4 [facility] HeightsBbclaodDTVEBUZFSA9486-37-62 22:53:19 Test Item Value Reference Range Interpretation Comments RDW (test code = RDW) 16.5 11.5-14.5 [facility] HeightsYgyfuvoAMUKRRGXIX7627-14-43 22:53:19 Test Item Value Reference Range Interpretation Comments Hct (test code = Hct) 41.0 36.0-48.0 [facility] HeightsOztnmetFUZKZJHSTU9466-81-06 22:53:19 Test Item Value Reference Range Interpretation Comments Hgb (test code = Hgb) 12.7 12.0-16.0 [facility] HeightsCtadtsdVUVFNTQTPZ7854-01-65 22:53:19 Test Item Value Reference Range Interpretation Comments WBC (test code = WBC) 11.5 3.7-10.4 [facility] HeightsWgzfxraKVTCVIXEUI6859-05-81 22:53:19 Test Item Value Reference Range Interpretation Comments MCH (test code = MCH) 24.3 pg 27.0-31.0 [facility] HeightsTtmviqaMRLPSXIMZI2367-61-77 22:53:19 Test Item Value Reference Range Interpretation Comments MCHC (test code = MCHC) 31.0 32.0-36.0 [facility] HeightsJvjertuJXINSLNGJZ5906-42-08 22:53:19 Test Item Value Reference Range Interpretation Comments MCV (test code = MCV) 78.4 80.0-98.0 [facility] FIPYO3393[facility]75[facility]87 22:53:19 Test Item Value Reference Range Interpretation Comments FTI (test code = FTI) 2.5 [facility] QGKHR5401-37-67 22:53:19 Test Item Value Reference Range Interpretation Comments TSH (test code = TSH) 1.540 0.360-3.740 [facility]2015-10-09 22:53:19 Test Item Value Reference Range Interpretation Comments T3 Uptake (test code = T3 Uptake) 31 31-39 [facility]2015-10-09 22:53:19 Test Item Value Reference Range Interpretation Comments T4 (test code = T4) 8.0 4.7-13.3 [facility]2015-10-09 22:53:19 Test Item Value Reference Range Interpretation Comments Transferrin (test code = Transferrin) 256 212-360 [facility]2015-10-09 22:53:19 Test Item Value Reference Range Interpretation Comments Vitamin B12 Lvl (test code = Vitamin 252 423-1839 B12 Lvl) [facility]2015-10-09 22:53:19 Test Item Value Reference Range Interpretation Comments eGFR (test code = eGFR) 70 [facility]2015-10-09 22:53:19 Test Item Value Reference Range Interpretation Comments Glucose Lvl (test code = Glucose Lvl) 103 70-99 [facility]2015-10-09 22:53:19 Test Item Value Reference Range Interpretation Comments Albumin Lvl (test code = Albumin Lvl) 3.6 3.5-5.0 [facility]2015-10-09 22:53:19 Test Item Value Reference Range Interpretation Comments CO2 (test code = CO2) 24 24-32 [facility]2015-10-09 22:53:19 Test Item Value Reference Range Interpretation Comments Total Protein (test code = Total 7.2 6.4-8.4 Protein) [facility]2015-10-09 22:53:19 Test Item Value Reference Range Interpretation Comments Creatinine Lvl (test code = Creatinine 1.1 0.5-1.4 Lvl) [facility]2015-10-09 22:53:19 Test Item Value Reference Range Interpretation Comments BUN (test code = BUN) 14 7-22 [facility]2015-10-09 22:53:19 Test Item Value Reference Range Interpretation Comments AST (test code = AST) 12 See_Comment [Auto mated message] The system which ge nerated this result transmit arvind reference range : <=37. The reference range was not used to interpr et this result as mario l/abnormal. [facility]2015-10-09 22:53:19 Test Item Value Reference Range Interpretation Comments ALT (test code = ALT) 41 See_Comment [Auto mated message] The system which ge nerated this result transmit arvind reference range : <=65. The reference range was not used to interpr et this result as mario l/abnormal. [facility]2015-10-09 22:53:19 Test Item Value Reference Range Interpretation Comments Alk Phos (test code = Alk Phos) 100 39-136 [facility]2015-10-09 22:53:19 Test Item Value Reference Range Interpretation Comments Bili Total (test code = Bili Total) 0.2 0.2-1.3 [facility]2015-10-09 22:53:19 Test Item Value Reference Range Interpretation Comments Potassium Lvl (test code = Potassium 3.9 3.5-5.1 Lvl) [facility]2015-10-09 22:53:19 Test Item Value Reference Range Interpretation Comments Sodium Lvl (test code = Sodium Lvl) 141 135-145 [facility]2015-10-09 22:53:19 Test Item Value Reference Range Interpretation Comments Calcium Lvl (test code = Calcium Lvl) 9.0 8.5-10.5 [facility]2015-10-09 22:53:19 Test Item Value Reference Range Interpretation Comments Chloride Lvl (test code = Chloride Lvl) 109 95-109 [facility]2015-10-09 22:53:19 Test Item Value Reference Range Interpretation Comments AGAP (test code = AGAP) 11.9 10.0-20.0 [facility]2015-10-09 22:53:19 Test Item Value Reference Range Interpretation Comments A/G Ratio (test code = A/G Ratio) 1.0 0.7-1.6 [facility]2015-10-09 22:53:19 Test Item Value Reference Range Interpretation Comments B/C Ratio (test code = B/C Ratio) 13 6-25 [facility]2015-10-09 22:53:19 Test Item Value Reference Range Interpretation Comments Globulin (test code = Globulin) 3.6 2.0-4.0 [facility]2015-10-09 22:53:19 Test Item Value Reference Range Interpretation Comments Magnesium Lvl (test code = Magnesium 1.8 1.8-2.4 Lvl) [facility] HeightsNhfuaumCYNKGDKKIT6249-02-30 22:53:19 Test Item Value Reference Range Interpretation Comments Segs (test code = Segs) 57.5 45.0-75.0 [facility] HeightsIzvsyznYANPLYMUVB1257-35-45 22:53:19 Test Item Value Reference Range Interpretation Comments Monocytes (test code = Monocytes) 7.6 2.0-12.0 [facility] HeightsUenkynrLZDJOVHEKY4488-16-83 22:53:19 Test Item Value Reference Range Interpretation Comments Basophils (test code = 1.0 See_Comment [Aut omated message] The Basophils) system which ge nerated this result tra nsmitted reference range : <=1.0. The reference r kta was not used to int erpret this result as normal/abnormal . [facility] HeightsFdzmrrhIDCKBRKGRA7863-34-78 22:53:19 Test Item Value Reference Range Interpretation Comments Lymphocytes (test code = Lymphocytes) 32.9 20.0-40.0 [facility] HeightsTkmurogRNBEGQNCCX4517-88-51 22:53:19 Test Item Value Reference Range Interpretation Comments Eosinophils (test code = 1.0 See_Comment [A utomated message] The Eosinophils) system which ge nerated this result tra nsmitted reference range : <=4.0. The reference r kat was not used to int erpret this result as normal/abnormal . [facility] HeightsQytwsztNSOAIDCZJJ1368-33-16 22:53:19 Test Item Value Reference Range Interpretation Comments Lymphocytes # (test code = Lymphocytes 3.8 1.0-5.5 #) [facility] HeightsXlbuirsBWVTWPHQKP9863-80-40 22:53:19 Test Item Value Reference Range Interpretation Comments Segs-Bands # (test code = Segs-Bands #) 6.6 1.5-8.1 [facility] HeightsSfltibsJQFIJIVDLQ6125-20-69 22:53:19 Test Item Value Reference Range Interpretation Comments Eosinophils # (test code 0.1 See_Comment [A utomated message] The = Eosinophils #) system whic h generated this result tra nsmitted reference range : <=0.5. The reference r kat was not used to int erpret this result as normal/abnormal . [facility] HeightsUcgsxyoWURCUYEMRF1069-90-73 22:53:19 Test Item Value Reference Range Interpretation Comments Monocytes # (test code 0.9 See_Comment [Aut omated message] The = Monocytes #) system which generated this result tra nsmitted reference range : <=0.8. The reference r kat was not used to int erpret this result as normal/abnormal . [facility] HeightsMhsgvurSUWYMRASPM9608-85-35 22:53:19 Test Item Value Reference Range Interpretation Comments Microcyte (test code = 1+ *ABN*(06/07/15 Microcyte) 5:53 PM) [facility] HeightsAkmmmecQKRYVGWGLG4643-05-05 22:53:19 Test Item Value Reference Range Interpretation Comments Basophils # (test code 0.1 See_Comment [Aut omated message] The = Basophils #) system which generated this result tra nsmitted reference range : <=0.2. The reference r kat was not used to int erpret this result as normal/abnormal . [facility] HeightsNlgcurrVSYKFTLUIH3930-74-03 22:53:19 Test Item Value Reference Range Interpretation Comments RBC (test code = RBC) 5.23 4.20-5.40 [facility] HeightsKzgxbhvBVZDMNYSBP0791-71-65 22:53:19 Test Item Value Reference Range Interpretation Comments Platelet (test code = Platelet) 241 133-450 [facility] HeightsRwrqhzxPDLRZVFSMI6443-84-73 22:53:19 Test Item Value Reference Range Interpretation Comments MPV (test code = MPV) 9.3 7.4-10.4 [facility] HeightsJnrhqzqWOAVECBBAF9450-83-48 22:53:19 Test Item Value Reference Range Interpretation Comments RDW (test code = RDW) 16.5 11.5-14.5 [facility] HeightsBmapsfeZVQPLHKUQY2591-91-61 22:53:19 Test Item Value Reference Range Interpretation Comments Hct (test code = Hct) 41.0 36.0-48.0 [facility] HeightsLvwpmzzBIWJMZVOAH1741-23-14 22:53:19 Test Item Value Reference Range Interpretation Comments Hgb (test code = Hgb) 12.7 12.0-16.0 [facility] HeightsKvrhxhpUCRGTGWLIZ0869-00-94 22:53:19 Test Item Value Reference Range Interpretation Comments WBC (test code = WBC) 11.5 3.7-10.4 [facility] HeightsXfkgtltDFIYJYDCZM3009-62-47 22:53:19 Test Item Value Reference Range Interpretation Comments MCH (test code = MCH) 24.3 pg 27.0-31.0 [facility] HeightsNviktzwMUOINIPPZV6242-05-15 22:53:19 Test Item Value Reference Range Interpretation Comments MCHC (test code = MCHC) 31.0 32.0-36.0 [facility] HeightsUskyfvrTOLVCASYDP6238-95-19 22:53:19 Test Item Value Reference Range Interpretation Comments MCV (test code = MCV) 78.4 80.0-98.0 [facility]2015-10-09 22:53:19 Test Item Value Reference Range Interpretation Comments FTI (test code = FTI) 2.5 [facility]2015-10-09 22:53:19 Test Item Value Reference Range Interpretation Comments TSH (test code = TSH) 1.540 0.360-3.740 [facility]2015-10-09 22:53:19 Test Item Value Reference Range Interpretation Comments T3 Uptake (test code = T3 Uptake) 31 31-39 [facility]2015-10-09 22:53:19 Test Item Value Reference Range Interpretation Comments T4 (test code = T4) 8.0 4.7-13.3 [facility]2015-10-09 22:53:19 Test Item Value Reference Range Interpretation Comments Transferrin (test code = Transferrin) 256 212-360 [facility]2015-10-09 22:53:19 Test Item Value Reference Range Interpretation Comments Vitamin B12 Lvl (test code = Vitamin [phone] B12 Lvl) [facility]2015-10-09 22:53:19 Test Item Value Reference Range Interpretation Comments eGFR (test code = eGFR) 70 [facility]2015-10-09 22:53:19 Test Item Value Reference Range Interpretation Comments Glucose Lvl (test code = Glucose Lvl) 103 70-99 [facility]2015-10-09 22:53:19 Test Item Value Reference Range Interpretation Comments Albumin Lvl (test code = Albumin Lvl) 3.6 3.5-5.0 [facility]2015-10-09 22:53:19 Test Item Value Reference Range Interpretation Comments CO2 (test code = CO2) 24 24-32 [facility]2015-10-09 22:53:19 Test Item Value Reference Range Interpretation Comments Total Protein (test code = Total 7.2 6.4-8.4 Protein) [facility]2015-10-09 22:53:19 Test Item Value Reference Range Interpretation Comments Creatinine Lvl (test code = Creatinine 1.1 0.5-1.4 Lvl) [facility]2015-10-09 22:53:19 Test Item Value Reference Range Interpretation Comments BUN (test code = BUN) 14 7-22 [facility]2015-10-09 22:53:19 Test Item Value Reference Range Interpretation Comments AST (test code = AST) 12 See_Comment [Auto mated message] The system which ge nerated this result transmit arvind reference range : <=37. The reference range was not used to interpr et this result as mario l/abnormal. [facility]2015-10-09 22:53:19 Test Item Value Reference Range Interpretation Comments ALT (test code = ALT) 41 See_Comment [Auto mated message] The system which ge nerated this result transmit arvind reference range : <=65. The reference range was not used to interpr et this result as mario l/abnormal. [facility]2015-10-09 22:53:19 Test Item Value Reference Range Interpretation Comments Alk Phos (test code = Alk Phos) 100 39-136 [facility]2015-10-09 22:53:19 Test Item Value Reference Range Interpretation Comments Bili Total (test code = Bili Total) 0.2 0.2-1.3 [facility]2015-10-09 22:53:19 Test Item Value Reference Range Interpretation Comments Potassium Lvl (test code = Potassium 3.9 3.5-5.1 Lvl) [facility]2015-10-09 22:53:19 Test Item Value Reference Range Interpretation Comments Sodium Lvl (test code = Sodium Lvl) 141 135-145 [facility]2015-10-09 22:53:19 Test Item Value Reference Range Interpretation Comments Calcium Lvl (test code = Calcium Lvl) 9.0 8.5-10.5 [facility]2015-10-09 22:53:19 Test Item Value Reference Range Interpretation Comments Chloride Lvl (test code = Chloride Lvl) 109 95-109 [facility]2015-10-09 22:53:19 Test Item Value Reference Range Interpretation Comments AGAP (test code = AGAP) 11.9 10.0-20.0 [facility]2015-10-09 22:53:19 Test Item Value Reference Range Interpretation Comments A/G Ratio (test code = A/G Ratio) 1.0 0.7-1.6 [facility]2015-10-09 22:53:19 Test Item Value Reference Range Interpretation Comments B/C Ratio (test code = B/C Ratio) 13 6-25 [facility]2015-10-09 22:53:19 Test Item Value Reference Range Interpretation Comments Globulin (test code = Globulin) 3.6 2.0-4.0 [facility]2015-10-09 22:53:19 Test Item Value Reference Range Interpretation Comments Magnesium Lvl (test code = Magnesium 1.8 1.8-2.4 Lvl) [facility] HeightsKurijrmHROXLAVXXH5250-09-57 22:53:19 Test Item Value Reference Range Interpretation Comments Segs (test code = Segs) 57.5 45.0-75.0 [facility] HeightsJzeyzqlQIOSOYFBXK0987-60-12 22:53:19 Test Item Value Reference Range Interpretation Comments Monocytes (test code = Monocytes) 7.6 2.0-12.0 [facility] HeightsFikiwctKYYYVACZHW4335-46-42 22:53:19 Test Item Value Reference Range Interpretation Comments Basophils (test code = 1.0 See_Comment [Aut omated message] The Basophils) system which ge nerated this result tra nsmitted reference range : <=1.0. The reference r kat was not used to int erpret this result as normal/abnormal . [facility] HeightsVjepkdvFCZVRBRUFU4268-21-03 22:53:19 Test Item Value Reference Range Interpretation Comments Lymphocytes (test code = Lymphocytes) 32.9 20.0-40.0 [facility] HeightsEguxcjaXDDVXMIIWN6887-04-81 22:53:19 Test Item Value Reference Range Interpretation Comments Eosinophils (test code = 1.0 See_Comment [A utomated message] The Eosinophils) system which ge nerated this result tra nsmitted reference range : <=4.0. The reference r kat was not used to int erpret this result as normal/abnormal . [facility] HeightsFwzrgbvQJZMCNDPFE1369-69-28 22:53:19 Test Item Value Reference Range Interpretation Comments Lymphocytes # (test code = Lymphocytes 3.8 1.0-5.5 #) [facility] HeightsClodmuxSPLRYCPZNJ8449-73-68 22:53:19 Test Item Value Reference Range Interpretation Comments Segs-Bands # (test code = Segs-Bands #) 6.6 1.5-8.1 [facility] HeightsGawsgyyLNYGESQEMT3844-06-91 22:53:19 Test Item Value Reference Range Interpretation Comments Eosinophils # (test code 0.1 See_Comment [A utomated message] The = Eosinophils #) system whic h generated this result tra nsmitted reference range : <=0.5. The reference r kat was not used to int erpret this result as normal/abnormal . [facility] HeightsGeohnegUQGUQMQQMR2772-85-08 22:53:19 Test Item Value Reference Range Interpretation Comments Monocytes # (test code 0.9 See_Comment [Aut omated message] The = Monocytes #) system which generated this result tra nsmitted reference range : <=0.8. The reference r kat was not used to int erpret this result as normal/abnormal . [facility] HeightsEkaqspcNKFLBJWAAT1960-91-92 22:53:19 Test Item Value Reference Range Interpretation Comments Microcyte (test code = 1+ *ABN*(06/07/15 Microcyte) 5:53 PM) [facility] HeightsXsealkuUVTOEXNQUT5557-20-89 22:53:19 Test Item Value Reference Range Interpretation Comments Basophils # (test code 0.1 See_Comment [Aut omated message] The = Basophils #) system which generated this result tra nsmitted reference range : <=0.2. The reference r kat was not used to int erpret this result as normal/abnormal . [facility] HeightsFttaeboXIJTURFBUV5019-90-65 22:53:19 Test Item Value Reference Range Interpretation Comments RBC (test code = RBC) 5.23 4.20-5.40 [facility] HeightsTgvpelxYSMCOSTZHV6010-01-01 22:53:19 Test Item Value Reference Range Interpretation Comments Platelet (test code = Platelet) 241 133-450 [facility] HeightsOpuijeuSXDQPDONYJ5453-28-33 22:53:19 Test Item Value Reference Range Interpretation Comments MPV (test code = MPV) 9.3 7.4-10.4 [facility] HeightsQwzteleYULEGIBVGI8201-80-62 22:53:19 Test Item Value Reference Range Interpretation Comments RDW (test code = RDW) 16.5 11.5-14.5 [facility] HeightsBinvftjYXAXYXFTIN8413-89-30 22:53:19 Test Item Value Reference Range Interpretation Comments Hct (test code = Hct) 41.0 36.0-48.0 [facility] HeightsXmbhqqrQSWJQUUTLK0729-33-14 22:53:19 Test Item Value Reference Range Interpretation Comments Hgb (test code = Hgb) 12.7 12.0-16.0 [facility] HeightsGdfepjqYAIZAAZMTD7246-24-34 22:53:19 Test Item Value Reference Range Interpretation Comments WBC (test code = WBC) 11.5 3.7-10.4 [facility] HeightsQbenwwcMUIVJMUJAY5128-39-22 22:53:19 Test Item Value Reference Range Interpretation Comments MCH (test code = MCH) 24.3 pg 27.0-31.0 [facility] HeightsWihigkgWIZVPEXCEA0764-83-87 22:53:19 Test Item Value Reference Range Interpretation Comments MCHC (test code = MCHC) 31.0 32.0-36.0 [facility] HeightsNdutudbKNDCXYVYLL0604-85-00 22:53:19 Test Item Value Reference Range Interpretation Comments MCV (test code = MCV) 78.4 80.0-98.0 [facility]THY[facility] CENTERMZWAX5364-20-02 22:53:19 Test Item Value Reference Range Interpretation Comments FTI (test code = FTI) 2.5 [facility] [id number] 22:53:19 Test Item Value Reference Range Interpretation Comments TSH (test code = TSH) 1.540 0.360-3.740 [facility] VDFOF8778-99-37 22:53:19 Test Item Value Reference Range Interpretation Comments T3 Uptake (test code = T3 Uptake) 31 31-39 [facility]2015-10-09 22:53:19 Test Item Value Reference Range Interpretation Comments T4 (test code = T4) 8.0 4.7-13.3 [facility]2015-10-09 22:53:19 Test Item Value Reference Range Interpretation Comments Transferrin (test code = Transferrin) 256 212-360 [facility]PramodCOSHO[facility] [id number] 22:53:19 Test Item Value Reference Range Interpretation Comments Vitamin B12 Lvl (test code = Vitamin 914 [id number] B12 Lvl) [facility]2015-10-09 22:53:19 Test Item Value Reference Range Interpretation Comments eGFR (test code = eGFR) 70 [facility]2015-10-09 22:53:19 Test Item Value Reference Range Interpretation Comments Glucose Lvl (test code = Glucose Lvl) 103 70-99 [facility]2015-10-09 22:53:19 Test Item Value Reference Range Interpretation Comments Albumin Lvl (test code = Albumin Lvl) 3.6 3.5-5.0 [facility]2015-10-09 22:53:19 Test Item Value Reference Range Interpretation Comments CO2 (test code = CO2) 24 24-32 [facility]2015-10-09 22:53:19 Test Item Value Reference Range Interpretation Comments Total Protein (test code = Total 7.2 6.4-8.4 Protein) [facility]2015-10-09 22:53:19 Test Item Value Reference Range Interpretation Comments Creatinine Lvl (test code = Creatinine 1.1 0.5-1.4 Lvl) [facility]2015-10-09 22:53:19 Test Item Value Reference Range Interpretation Comments BUN (test code = BUN) 14 7-22 [facility]2015-10-09 22:53:19 Test Item Value Reference Range Interpretation Comments AST (test code = AST) 12 See_Comment [Auto mated message] The system which ge nerated this result transmit arvind reference range : <=37. The reference range was not used to interpr et this result as mario l/abnormal. [facility]2015-10-09 22:53:19 Test Item Value Reference Range Interpretation Comments ALT (test code = ALT) 41 See_Comment [Auto mated message] The system which ge nerated this result transmit arvind reference range : <=65. The reference range was not used to interpr et this result as mario l/abnormal. [facility]2015-10-09 22:53:19 Test Item Value Reference Range Interpretation Comments Alk Phos (test code = Alk Phos) 100 39-136 [facility]2015-10-09 22:53:19 Test Item Value Reference Range Interpretation Comments Bili Total (test code = Bili Total) 0.2 0.2-1.3 [facility]2015-10-09 22:53:19 Test Item Value Reference Range Interpretation Comments Potassium Lvl (test code = Potassium 3.9 3.5-5.1 Lvl) [facility]2015-10-09 22:53:19 Test Item Value Reference Range Interpretation Comments Sodium Lvl (test code = Sodium Lvl) 141 135-145 [facility]2015-10-09 22:53:19 Test Item Value Reference Range Interpretation Comments Calcium Lvl (test code = Calcium Lvl) 9.0 8.5-10.5 [facility]2015-10-09 22:53:19 Test Item Value Reference Range Interpretation Comments Chloride Lvl (test code = Chloride Lvl) 109 95-109 [facility]2015-10-09 22:53:19 Test Item Value Reference Range Interpretation Comments AGAP (test code = AGAP) 11.9 10.0-20.0 [facility]2015-10-09 22:53:19 Test Item Value Reference Range Interpretation Comments A/G Ratio (test code = A/G Ratio) 1.0 0.7-1.6 [facility]2015-10-09 22:53:19 Test Item Value Reference Range Interpretation Comments B/C Ratio (test code = B/C Ratio) 13 6-25 [facility]2015-10-09 22:53:19 Test Item Value Reference Range Interpretation Comments Globulin (test code = Globulin) 3.6 2.0-4.0 [facility]2015-10-09 22:53:19 Test Item Value Reference Range Interpretation Comments Magnesium Lvl (test code = Magnesium 1.8 1.8-2.4 Lvl) [facility]VwilbrvVKTKTRMLMZ5162-28-71 22:53:19 Test Item Value Reference Range Interpretation Comments Segs (test code = Segs) 57.5 45.0-75.0 [facility] HeightsIhsgicwXFNAWGIMCC8641-26-55 22:53:19 Test Item Value Reference Range Interpretation Comments Monocytes (test code = Monocytes) 7.6 2.0-12.0 [facility] HeightsXrsueoeUZFMPTFKJO1659-50-84 22:53:19 Test Item Value Reference Range Interpretation Comments Basophils (test code = 1.0 See_Comment [Aut omated message] The Basophils) system which ge nerated this result tra nsmitted reference range : <=1.0. The reference r kat was not used to int erpret this result as normal/abnormal . [facility] HeightsDmlvyuhKBAOWFMHUC1439-59-51 22:53:19 Test Item Value Reference Range Interpretation Comments Lymphocytes (test code = Lymphocytes) 32.9 20.0-40.0 [facility] HeightsSnakoeuCFNSIEPXZM5879-01-47 22:53:19 Test Item Value Reference Range Interpretation Comments Eosinophils (test code = 1.0 See_Comment [A utomated message] The Eosinophils) system which ge nerated this result tra nsmitted reference range : <=4.0. The reference r kat was not used to int erpret this result as normal/abnormal . [facility] HeightsYohykrjVNLZJWXLWY2476-22-10 22:53:19 Test Item Value Reference Range Interpretation Comments Lymphocytes # (test code = Lymphocytes 3.8 1.0-5.5 #) [facility] HeightsJgblnwrNOZCPHEVIY3262-23-78 22:53:19 Test Item Value Reference Range Interpretation Comments Segs-Bands # (test code = Segs-Bands #) 6.6 1.5-8.1 [facility] HeightsZnrbeqsHNJWGKAKPG4488-83-35 22:53:19 Test Item Value Reference Range Interpretation Comments Eosinophils # (test code 0.1 See_Comment [A utomated message] The = Eosinophils #) system [facility] generated this result tra nsmitted reference range : <=0.5. The reference r kat was not used to int erpret this result as normal/abnormal . [facility] HeightsHtzceuiMORDMCFKWM0100-45-54 22:53:19 Test Item Value Reference Range Interpretation Comments Monocytes # (test code 0.9 See_Comment [Aut omated message] The = Monocytes #) system which generated this result tra nsmitted reference range : <=0.8. The reference r kat was not used to int erpret this result as normal/abnormal . [facility] HeightsMkpxjkjLUPPSFKJHM5455-55-28 22:53:19 Test Item Value Reference Range Interpretation Comments Microcyte (test code = 1+ *ABN*(06/07/15 Microcyte) 5:53 PM) [facility] HeightsGaubpsdSWQTLLOSLT0349-23-91 22:53:19 Test Item Value Reference Range Interpretation Comments Basophils # (test code 0.1 See_Comment [Aut omated message] The = Basophils #) system which generated this result tra nsmitted reference range : <=0.2. The reference r kat was not used to int erpret this result as normal/abnormal . [facility] HeightsPnypcfmKIVIIOKROZ7163-38-55 22:53:19 Test Item Value Reference Range Interpretation Comments RBC (test code = RBC) 5.23 4.20-5.40 [facility] HeightsLfssgdtRATTHLQFMT7039-05-50 22:53:19 Test Item Value Reference Range Interpretation Comments Platelet (test code = Platelet) 241 133-450 [facility] HeightsYjfphniNKORQTNYJD3345-72-67 22:53:19 Test Item Value Reference Range Interpretation Comments MPV (test code = MPV) 9.3 7.4-10.4 [facility] HeightsPwblvgcUWSBPCHWML3937-61-93 22:53:19 Test Item Value Reference Range Interpretation Comments RDW (test code = RDW) 16.5 11.5-14.5 [facility] HeightsMptpslsCUPNIIOXVX5038-15-34 22:53:19 Test Item Value Reference Range Interpretation Comments Hct (test code = Hct) 41.0 36.0-48.0 [facility] HeightsHiskqksXMDMFCHMDZ7129-76-02 22:53:19 Test Item Value Reference Range Interpretation Comments Hgb (test code = Hgb) 12.7 12.0-16.0 [facility] HeightsEclufzqQCKXTLELSW1988-93-22 22:53:19 Test Item Value Reference Range Interpretation Comments WBC (test code = WBC) 11.5 3.7-10.4 [facility] HeightsFbpxuceZLRMVGEHMO1558-61-55 22:53:19 Test Item Value Reference Range Interpretation Comments MCH (test code = MCH) 24.3 pg 27.0-31.0 [facility] HeightsToqvijtQDDFETROUK7725-48-62 22:53:19 Test Item Value Reference Range Interpretation Comments MCHC (test code = MCHC) 31.0 32.0-36.0 [facility] HeightsMazcoqoLDBXCTHEJP8483-46-31 22:53:19 Test Item Value Reference Range Interpretation Comments MCV (test code = MCV) 78.4 80.0-98.0 [facility]2015-10-09 22:53:19 Test Item Value Reference Range Interpretation Comments FTI (test code = FTI) 2.5 [facility]2015-10-09 22:53:19 Test Item Value Reference Range Interpretation Comments TSH (test code = TSH) 1.540 0.360-3.740 [facility]2015-10-09 22:53:19 Test Item Value Reference Range Interpretation Comments T3 Uptake (test code = T3 Uptake) 31 31-39 [facility]2015-10-09 22:53:19 Test Item Value Reference Range Interpretation Comments T4 (test code = T4) 8.0 4.7-13.3 [facility]2015-10-09 22:53:19 Test Item Value Reference Range Interpretation Comments Transferrin (test code = Transferrin) 256 212-360 [facility]2015-10-09 22:53:19 Test Item Value Reference Range Interpretation Comments Vitamin B12 Lvl (test code = Vitamin [phone] B12 Lvl) [facility]2015-10-09 22:53:19 Test Item Value Reference Range Interpretation Comments eGFR (test code = eGFR) 70 [facility]2015-10-09 22:53:19 Test Item Value Reference Range Interpretation Comments Glucose Lvl (test code = Glucose Lvl) 103 70-99 [facility]2015-10-09 22:53:19 Test Item Value Reference Range Interpretation Comments Albumin Lvl (test code = Albumin Lvl) 3.6 3.5-5.0 [facility]2015-10-09 22:53:19 Test Item Value Reference Range Interpretation Comments CO2 (test code = CO2) 24 24-32 [facility]2015-10-09 22:53:19 Test Item Value Reference Range Interpretation Comments Total Protein (test code = Total 7.2 6.4-8.4 Protein) [facility]2015-10-09 22:53:19 Test Item Value Reference Range Interpretation Comments Creatinine Lvl (test code = Creatinine 1.1 0.5-1.4 Lvl) [facility]2015-10-09 22:53:19 Test Item Value Reference Range Interpretation Comments BUN (test code = BUN) 14 7-22 [facility]2015-10-09 22:53:19 Test Item Value Reference Range Interpretation Comments AST (test code = AST) 12 See_Comment [Auto mated message] The system which ge nerated this result transmit arvind reference range : <=37. The reference range was not used to interpr et this result as mario l/abnormal. [facility]2015-10-09 22:53:19 Test Item Value Reference Range Interpretation Comments ALT (test code = ALT) 41 See_Comment [Auto mated message] The system which ge nerated this result transmit arvind reference range : <=65. The reference range was not used to interpr et this result as mario l/abnormal. [facility]UNC [facility] LENOIRQDTYH1916-01-91 22:53:19 Test Item Value Reference Range Interpretation Comments Alk Phos (test code = Alk Phos) 100 39-136 [facility]2015-10-09 22:53:19 Test Item Value Reference Range Interpretation Comments Bili Total (test code = Bili Total) 0.2 0.2-1.3 [facility] WorthTaskRabbit [id number] 22:53:19 Test Item Value Reference Range Interpretation Comments Potassium Lvl (test code = Potassium 3.9 3.5-5.1 Lvl) [facility] WorthMed-TekUNC HEALTH LENOIRDDHIW5458-72-73 22:53:19 Test Item Value Reference Range Interpretation Comments Sodium Lvl (test code = Sodium Lvl) 141 135-145 [facility]2015-10-09 22:53:19 Test Item Value Reference Range Interpretation Comments Calcium Lvl (test code = Calcium Lvl) 9.0 8.5-10.5 [facility] WorthTaskR[facility] [id number] 22:53:19 Test Item Value Reference Range Interpretation Comments Chloride Lvl (test code = Chloride Lvl) 109 95-109 [facility] WorthTask[facility] [id number] 22:53:19 Test Item Value Reference Range Interpretation Comments AGAP (test code = AGAP) 11.9 10.0-20.0 [facility]2015-10-09 22:53:19 Test Item Value Reference Range Interpretation Comments A/G Ratio (test code = A/G Ratio) 1.0 0.7-1.6 [facility] JLMZD4110[facility] 22:53:19 Test Item Value Reference Range Interpretation Comments B/C Ratio (test code = B/C Ratio) 13 6-25 [facility]2015-10-09 22:53:19 Test Item Value Reference Range Interpretation Comments Globulin (test code = Globulin) 3.6 2.0-4.0 [facility]2015-10-09 22:53:19 Test Item Value Reference Range Interpretation Comments Magnesium Lvl (test code = Magnesium 1.8 1.8-2.4 Lvl) [facility] HeightsQaopvvsZRWXPOJMAH7009-85-98 22:53:19 Test Item Value Reference Range Interpretation Comments Segs (test code = Segs) 57.5 45.0-75.0 [facility] HeightsLgicdpuXGZLDWMPDQ4012-35-92 22:53:19 Test Item Value Reference Range Interpretation Comments Monocytes (test code = Monocytes) 7.6 2.0-12.0 [facility] HeightsRpinuckWSBORULKKG9238-26-64 22:53:19 Test Item Value Reference Range Interpretation Comments Basophils (test code = 1.0 See_Comment [Aut omated message] The Basophils) system which ge nerated this result tra nsmitted reference range : <=1.0. The reference r kat was not used to int erpret this result as normal/abnormal . [facility] HeightsHbupydpZOAGZPRABZ3852-17-63 22:53:19 Test Item Value Reference Range Interpretation Comments Lymphocytes (test code = Lymphocytes) 32.9 20.0-40.0 [facility] HeightsZmtbiauEGPKRULPVO5848-84-74 22:53:19 Test Item Value Reference Range Interpretation Comments Eosinophils (test code = 1.0 See_Comment [A utomated message] The Eosinophils) system which ge nerated this result tra nsmitted reference range : <=4.0. The reference r kat was not used to int erpret this result as normal/abnormal . [facility] HeightsHceorlrCWBXKWOXPN0791-79-59 22:53:19 Test Item Value Reference Range Interpretation Comments Lymphocytes # (test code = Lymphocytes 3.8 1.0-5.5 #) [facility] HeightsBevfuuuQIUQQBZTIC4936-63-40 22:53:19 Test Item Value Reference Range Interpretation Comments Segs-Bands # (test code = Segs-Bands #) 6.6 1.5-8.1 [facility] HeightsRtirsngQGKFSPGISU1869-44-80 22:53:19 Test Item Value Reference Range Interpretation Comments Eosinophils # (test code 0.1 See_Comment [A utomated message] The = Eosinophils #) system whic h generated this result tra nsmitted reference range : <=0.5. The reference r kat was not used to int erpret this result as normal/abnormal . [facility] HeightsQtyfqgaFCYTHLFZEP0821-08-66 22:53:19 Test Item Value Reference Range Interpretation Comments Monocytes # (test code 0.9 See_Comment [Aut omated message] The = Monocytes #) system which generated this result tra nsmitted reference range : <=0.8. The reference r kat was not used to int erpret this result as normal/abnormal . [facility] HeightsQjegbtrCBLVUXLEEH5715-42-66 22:53:19 Test Item Value Reference Range Interpretation Comments Microcyte (test code = 1+ *ABN*(06/07/15 Microcyte) 5:53 PM) [facility] HeightsLvfsbmmSBEDGHMDPX4328-58-49 22:53:19 Test Item Value Reference Range Interpretation Comments Basophils # (test code 0.1 See_Comment [Aut omated message] The = Basophils #) system which generated this result tra nsmitted reference range : <=0.2. The reference r kat was not used to int erpret this result as normal/abnormal . [facility] HeightsIywpiagOFCWFFMWKM4225-60-24 22:53:19 Test Item Value Reference Range Interpretation Comments RBC (test code = RBC) 5.23 4.20-5.40 [facility] HeightsHkdmaapDHUQDCGYAT6623-80-98 22:53:19 Test Item Value Reference Range Interpretation Comments Platelet (test code = Platelet) 241 133-450 [facility] HeightsFvhfszdDZVNHWITPI9442-94-43 22:53:19 Test Item Value Reference Range Interpretation Comments MPV (test code = MPV) 9.3 7.4-10.4 [facility] HeightsFhtybfvYXSKNOVKHU3990-93-04 22:53:19 Test Item Value Reference Range Interpretation Comments RDW (test code = RDW) 16.5 11.5-14.5 [facility] HeightsQabhbdyZDONNUSFMK5110-97-42 22:53:19 Test Item Value Reference Range Interpretation Comments Hct (test code = Hct) 41.0 36.0-48.0 [facility] HeightsJgltfnwHBERAHCDRV5153-58-26 22:53:19 Test Item Value Reference Range Interpretation Comments Hgb (test code = Hgb) 12.7 12.0-16.0 [facility] HeightsKtixuwjZHNBDGMIXT1576-30-76 22:53:19 Test Item Value Reference Range Interpretation Comments WBC (test code = WBC) 11.5 3.7-10.4 [facility] HeightsHiclxbqQNOTAOTBYQ7817-58-33 22:53:19 Test Item Value Reference Range Interpretation Comments MCH (test code = MCH) 24.3 pg 27.0-31.0 [facility] HeightsCyeyzikKAXBCLPMMG7731-04-95 22:53:19 Test Item Value Reference Range Interpretation Comments MCHC (test code = MCHC) 31.0 32.0-36.0 [facility] HeightsDbywtflULBAZCROKQ6071-04-18 22:53:19 Test Item Value Reference Range Interpretation Comments MCV (test code = MCV) 78.4 80.0-98.0 [facility]2015-10-09 22:53:19 Test Item Value Reference Range Interpretation Comments FTI (test code = FTI) 2.5 [facility]2015-10-09 22:53:19 Test Item Value Reference Range Interpretation Comments TSH (test code = TSH) 1.540 0.360-3.740 [facility]2015-10-09 22:53:19 Test Item Value Reference Range Interpretation Comments T3 Uptake (test code = T3 Uptake) 31 31-39 [facility]2015-10-09 22:53:19 Test Item Value Reference Range Interpretation Comments T4 (test code = T4) 8.0 4.7-13.3 [facility]2015-10-09 22:53:19 Test Item Value Reference Range Interpretation Comments Transferrin (test code = Transferrin) 256 212-360 [facility]2015-10-09 22:53:19 Test Item Value Reference Range Interpretation Comments Vitamin B12 Lvl (test code = Vitamin [phone] B12 Lvl) [facility]2015-10-09 22:53:19 Test Item Value Reference Range Interpretation Comments eGFR (test code = eGFR) 70 [facility]2015-10-09 22:53:19 Test Item Value Reference Range Interpretation Comments Glucose Lvl (test code = Glucose Lvl) 103 70-99 [facility]2015-10-09 22:53:19 Test Item Value Reference Range Interpretation Comments Albumin Lvl (test code = Albumin Lvl) 3.6 3.5-5.0 [facility]2015-10-09 22:53:19 Test Item Value Reference Range Interpretation Comments CO2 (test code = CO2) 24 24-32 [facility]2015-10-09 22:53:19 Test Item Value Reference Range Interpretation Comments Total Protein (test code = Total 7.2 6.4-8.4 Protein) [facility]2015-10-09 22:53:19 Test Item Value Reference Range Interpretation Comments Creatinine Lvl (test code = Creatinine 1.1 0.5-1.4 Lvl) [facility]2015-10-09 22:53:19 Test Item Value Reference Range Interpretation Comments BUN (test code = BUN) 14 7-22 [facility]2015-10-09 22:53:19 Test Item Value Reference Range Interpretation Comments AST (test code = AST) 12 See_Comment [Auto mated message] The system which ge nerated this result transmit arvind reference range : <=37. The reference range was not used to interpr et this result as mario l/abnormal. [facility]2015-10-09 22:53:19 Test Item Value Reference Range Interpretation Comments ALT (test code = ALT) 41 See_Comment [Auto mated message] The system which ge nerated this result transmit arvind reference range : <=65. The reference range was not used to interpr et this result as mario l/abnormal. [facility]2015-10-09 22:53:19 Test Item Value Reference Range Interpretation Comments Alk Phos (test code = Alk Phos) 100 39-136 [facility]2015-10-09 22:53:19 Test Item Value Reference Range Interpretation Comments Bili Total (test code = Bili Total) 0.2 0.2-1.3 [facility]2015-10-09 22:53:19 Test Item Value Reference Range Interpretation Comments Potassium Lvl (test code = Potassium 3.9 3.5-5.1 Lvl) [facility]2015-10-09 22:53:19 Test Item Value Reference Range Interpretation Comments Sodium Lvl (test code = Sodium Lvl) 141 135-145 [place] 372445-10-09 22:53:19 Test Item Value Reference Range Interpretation Comments Calcium Lvl (test code = Calcium Lvl) 9.0 8.5-10.5 [facility]2015-10-09 22:53:19 Test Item Value Reference Range Interpretation Comments Chloride Lvl (test code = Chloride Lvl) 109 95-109 [facility]2015-10-09 22:53:19 Test Item Value Reference Range Interpretation Comments AGAP (test code = AGAP) 11.9 10.0-20.0 [facility]2015-10-09 22:53:19 Test Item Value Reference Range Interpretation Comments A/G Ratio (test code = A/G Ratio) 1.0 0.7-1.6 [facility]2015-10-09 22:53:19 Test Item Value Reference Range Interpretation Comments B/C Ratio (test code = B/C Ratio) 13 6-25 [facility]2015-10-09 22:53:19 Test Item Value Reference Range Interpretation Comments Globulin (test code = Globulin) 3.6 2.0-4.0 [facility]2015-10-09 22:53:19 Test Item Value Reference Range Interpretation Comments Magnesium Lvl (test code = Magnesium 1.8 1.8-2.4 Lvl) [facility] HeightsRkkpwuyJIGITYHYNI8692-08-01 22:53:19 Test Item Value Reference Range Interpretation Comments Segs (test code = Segs) 57.5 45.0-75.0 [facility] HeightsShwbxzvQKGVSGFLYM2885-14-25 22:53:19 Test Item Value Reference Range Interpretation Comments Monocytes (test code = Monocytes) 7.6 2.0-12.0 [facility] HeightsQhaamfiIVDGEAYPII8839-74-29 22:53:19 Test Item Value Reference Range Interpretation Comments Basophils (test code = 1.0 See_Comment [Aut omated message] The Basophils) system which ge nerated this result tra nsmitted reference range : <=1.0. The reference r kat was not used to int erpret this result as normal/abnormal . [facility] HeightsUwlxlzxKEIPHJXRAG0646-29-11 22:53:19 Test Item Value Reference Range Interpretation Comments Lymphocytes (test code = Lymphocytes) 32.9 20.0-40.0 [facility] HeightsXqsoapuBFCAKDRCMA4053-00-33 22:53:19 Test Item Value Reference Range Interpretation Comments Eosinophils (test code = 1.0 See_Comment [A utomated message] The Eosinophils) system which ge nerated this result tra nsmitted reference range : <=4.0. The reference r kat was not used to int erpret this result as normal/abnormal . [facility] HeightsXxpwbglCDOGEQFLVS2962-95-06 22:53:19 Test Item Value Reference Range Interpretation Comments Lymphocytes # (test code = Lymphocytes 3.8 1.0-5.5 #) [facility] HeightsWcztlhlETAGGWFLGQ7779-45-57 22:53:19 Test Item Value Reference Range Interpretation Comments Segs-Bands # (test code = Segs-Bands #) 6.6 1.5-8.1 [facility] HeightsSlvshomQWSEKNMCHJ2473-14-17 22:53:19 Test Item Value Reference Range Interpretation Comments Eosinophils # (test code 0.1 See_Comment [A utomated message] The = Eosinophils #) system wh h generated this result tra nsmitted reference range : <=0.5. The reference r kat was not used to int erpret this result as normal/abnormal . [facility] HeightsHluemxiVDNVOJAWXQ5075-97-18 22:53:19 Test Item Value Reference Range Interpretation Comments Monocytes # (test code 0.9 See_Comment [Aut omated message] The = Monocytes #) system which generated this result tra nsmitted reference range : <=0.8. The reference r kat was not used to int erpret this result as normal/abnormal . [facility] HeightsPncqxbsSLBDPHUXWQ5144-48-91 22:53:19 Test Item Value Reference Range Interpretation Comments Microcyte (test code = 1+ *ABN*(06/07/15 Microcyte) 5:53 PM) [facility] HeightsNjsoeirHIAPOOFNHG1788-47-23 22:53:19 Test Item Value Reference Range Interpretation Comments Basophils # (test code 0.1 See_Comment [Aut omated message] The = Basophils #) system which generated this result tra nsmitted reference range : <=0.2. The reference r kat was not used to int erpret this result as normal/abnormal . [facility] HeightsRggibquNROKOGRWUE1416-59-58 22:53:19 Test Item Value Reference Range Interpretation Comments RBC (test code = RBC) 5.23 4.20-5.40 [facility] HeightsNmlvzpfGGDOENGPPQ6320-07-51 22:53:19 Test Item Value Reference Range Interpretation Comments Platelet (test code = Platelet) 241 133-450 [facility] HeightsTqncyhjGSQHFIZGWG1652-68-31 22:53:19 Test Item Value Reference Range Interpretation Comments MPV (test code = MPV) 9.3 7.4-10.4 [facility] HeightsZqhwtnnMBUJLJCXJT5675-63-01 22:53:19 Test Item Value Reference Range Interpretation Comments RDW (test code = RDW) 16.5 11.5-14.5 [facility] HeightsVbuujkeWJMPLXVXGO3714-80-51 22:53:19 Test Item Value Reference Range Interpretation Comments Hct (test code = Hct) 41.0 36.0-48.0 [facility] HeightsXnvoxhyYWQMMANHLM6178-38-08 22:53:19 Test Item Value Reference Range Interpretation Comments Hgb (test code = Hgb) 12.7 12.0-16.0 [facility] HeightsIugsyzgQLNQJVESRR8760-27-12 22:53:19 Test Item Value Reference Range Interpretation Comments WBC (test code = WBC) 11.5 3.7-10.4 [facility] HeightsVoladdxIYVKUEOHWL9921-19-14 22:53:19 Test Item Value Reference Range Interpretation Comments MCH (test code = MCH) 24.3 pg 27.0-31.0 [facility] HeightsUabzgxoDRGGXJAWTS0940-99-84 22:53:19 Test Item Value Reference Range Interpretation Comments MCHC (test code = MCHC) 31.0 32.0-36.0 [facility] HeightsZhzhcjvDFAHHTOINP8137-83-41 22:53:19 Test Item Value Reference Range Interpretation Comments MCV (test code = MCV) 78.4 80.0-98.0 [facility] NRKRH8002[facility] 22:53:19 Test Item Value Reference Range Interpretation Comments FTI (test code = FTI) 2.5 [facility] GHVEG7375-25-70 22:53:19 Test Item Value Reference Range Interpretation Comments TSH (test code = TSH) 1.540 0.360-3.740 [facility] RUGBV4360-84-58 22:53:19 Test Item Value Reference Range Interpretation Comments T3 Uptake (test code = T3 Uptake) 31 31-39 [facility] HIAVM1810-35-58 22:53:19 Test Item Value Reference Range Interpretation Comments T4 (test code = T4) 8.0 4.7-13.3 [facility]2015-10-09 22:53:19 Test Item Value Reference Range Interpretation Comments Transferrin (test code = Transferrin) 256 212-360 [facility]2015-10-09 22:53:19 Test Item Value Reference Range Interpretation Comments Vitamin B12 Lvl (test code = Vitamin [phone] B12 Lvl) [facility]2015-10-09 22:53:19 Test Item Value Reference Range Interpretation Comments eGFR (test code = eGFR) 70 [facility]2015-10-09 22:53:19 Test Item Value Reference Range Interpretation Comments Glucose Lvl (test code = Glucose Lvl) 103 70-99 [facility]2015-10-09 22:53:19 Test Item Value Reference Range Interpretation Comments Albumin Lvl (test code = Albumin Lvl) 3.6 3.5-5.0 [facility]2015-10-09 22:53:19 Test Item Value Reference Range Interpretation Comments CO2 (test code = CO2) 24 24-32 [place] 372445-10-09 22:53:19 Test Item Value Reference Range Interpretation Comments Total Protein (test code = Total 7.2 6.4-8.4 Protein) [facility]2015-10-09 22:53:19 Test Item Value Reference Range Interpretation Comments Creatinine Lvl (test code = Creatinine 1.1 0.5-1.4 Lvl) [facility]2015-10-09 22:53:19 Test Item Value Reference Range Interpretation Comments BUN (test code = BUN) 14 7-22 [facility]2015-10-09 22:53:19 Test Item Value Reference Range Interpretation Comments AST (test code = AST) 12 See_Comment [Auto mated message] The system which ge nerated this result transmit arvind reference range : <=37. The reference range was not used to interpr et this result as mario l/abnormal. [facility]2015-10-09 22:53:19 Test Item Value Reference Range Interpretation Comments ALT (test code = ALT) 41 See_Comment [Auto mated message] The system which ge nerated this result transmit arivnd reference range : <=65. The reference range was not used to interpr et this result as mario l/abnormal. [facility]2015-10-09 22:53:19 Test Item Value Reference Range Interpretation Comments Alk Phos (test code = Alk Phos) 100 39-136 [facility]2015-10-09 22:53:19 Test Item Value Reference Range Interpretation Comments Bili Total (test code = Bili Total) 0.2 0.2-1.3 [facility]2015-10-09 22:53:19 Test Item Value Reference Range Interpretation Comments Potassium Lvl (test code = Potassium 3.9 3.5-5.1 Lvl) [facility]2015-10-09 22:53:19 Test Item Value Reference Range Interpretation Comments Sodium Lvl (test code = Sodium Lvl) 141 135-145 [facility]2015-10-09 22:53:19 Test Item Value Reference Range Interpretation Comments Calcium Lvl (test code = Calcium Lvl) 9.0 8.5-10.5 [facility]2015-10-09 22:53:19 Test Item Value Reference Range Interpretation Comments Chloride Lvl (test code = Chloride Lvl) 109 95-109 [facility]2015-10-09 22:53:19 Test Item Value Reference Range Interpretation Comments AGAP (test code = AGAP) 11.9 10.0-20.0 [facility]2015-10-09 22:53:19 Test Item Value Reference Range Interpretation Comments A/G Ratio (test code = A/G Ratio) 1.0 0.7-1.6 [facility]2015-10-09 22:53:19 Test Item Value Reference Range Interpretation Comments B/C Ratio (test code = B/C Ratio) 13 6-25 [facility]2015-10-09 22:53:19 Test Item Value Reference Range Interpretation Comments Globulin (test code = Globulin) 3.6 2.0-4.0 [facility]2015-10-09 22:53:19 Test Item Value Reference Range Interpretation Comments Transferrin (test code = Transferrin) 256 212-360 [facility]2015-10-09 22:53:19 Test Item Value Reference Range Interpretation Comments Vitamin B12 Lvl (test code = Vitamin [phone] B12 Lvl) [facility]2015-10-09 22:53:19 Test Item Value Reference Range Interpretation Comments eGFR (test code = eGFR) 70 [facility]2015-10-09 22:53:19 Test Item Value Reference Range Interpretation Comments Glucose Lvl (test code = Glucose Lvl) 103 70-99 [facility]2015-10-09 22:53:19 Test Item Value Reference Range Interpretation Comments Albumin Lvl (test code = Albumin Lvl) 3.6 3.5-5.0 [facility]2015-10-09 22:53:19 Test Item Value Reference Range Interpretation Comments CO2 (test code = CO2) 24 24-32 [facility]2015-10-09 22:53:19 Test Item Value Reference Range Interpretation Comments Total Protein (test code = Total 7.2 6.4-8.4 Protein) [facility]2015-10-09 22:53:19 Test Item Value Reference Range Interpretation Comments Creatinine Lvl (test code = Creatinine 1.1 0.5-1.4 Lvl) [facility]2015-10-09 22:53:19 Test Item Value Reference Range Interpretation Comments BUN (test code = BUN) 14 7-22 [facility]2015-10-09 22:53:19 Test Item Value Reference Range Interpretation Comments Magnesium Lvl (test code = Magnesium 1.8 1.8-2.4 Lvl) [facility]2015-10-09 22:53:19 Test Item Value Reference Range Interpretation Comments AST (test code = AST) 12 See_Comment [Auto mated message] The system which ge nerated this result transmit arvind reference range : <=37. The reference range was not used to interpr et this result as mario l/abnormal. [facility]2015-10-09 22:53:19 Test Item Value Reference Range Interpretation Comments ALT (test code = ALT) 41 See_Comment [Auto mated message] The system which ge nerated this result transmit arvind reference range : <=65. The reference range was not used to interpr et this result as mario l/abnormal. [facility]2015-10-09 22:53:19 Test Item Value Reference Range Interpretation Comments Alk Phos (test code = Alk Phos) 100 39-136 [facility]2015-10-09 22:53:19 Test Item Value Reference Range Interpretation Comments Bili Total (test code = Bili Total) 0.2 0.2-1.3 [facility]2015-10-09 22:53:19 Test Item Value Reference Range Interpretation Comments Potassium Lvl (test code = Potassium 3.9 3.5-5.1 Lvl) [facility]2015-10-09 22:53:19 Test Item Value Reference Range Interpretation Comments Sodium Lvl (test code = Sodium Lvl) 141 135-145 [facility]2015-10-09 22:53:19 Test Item Value Reference Range Interpretation Comments Calcium Lvl (test code = Calcium Lvl) 9.0 8.5-10.5 [facility]2015-10-09 22:53:19 Test Item Value Reference Range Interpretation Comments Chloride Lvl (test code = Chloride Lvl) 109 95-109 [facility]2015-10-09 22:53:19 Test Item Value Reference Range Interpretation Comments AGAP (test code = AGAP) 11.9 10.0-20.0 [facility]2015-10-09 22:53:19 Test Item Value Reference Range Interpretation Comments A/G Ratio (test code = A/G Ratio) 1.0 0.7-1.6 [facility] HeightsFrdugqkPFFNVGFVZI7879-67-77 22:53:19 Test Item Value Reference Range Interpretation Comments Segs (test code = Segs) 57.5 45.0-75.0 [facility]2015-10-09 22:53:19 Test Item Value Reference Range Interpretation Comments B/C Ratio (test code = B/C Ratio) 13 6-25 [facility]2015-10-09 22:53:19 Test Item Value Reference Range Interpretation Comments Globulin (test code = Globulin) 3.6 2.0-4.0 [facility]2015-10-09 22:53:19 Test Item Value Reference Range Interpretation Comments Magnesium Lvl (test code = Magnesium 1.8 1.8-2.4 Lvl) [facility] HeightsFxdsvocPJSLGFEBDI7339-42-61 22:53:19 Test Item Value Reference Range Interpretation Comments Segs (test code = Segs) 57.5 45.0-75.0 [facility] HeightsBzbmxbwGAYHZUYCEK8217-13-53 22:53:19 Test Item Value Reference Range Interpretation Comments Monocytes (test code = Monocytes) 7.6 2.0-12.0 [facility] HeightsZbdbozzJUJEEWUCDH1508-42-14 22:53:19 Test Item Value Reference Range Interpretation Comments Basophils (test code = 1.0 See_Comment [Aut omated message] The Basophils) system which ge nerated this result tra nsmitted reference range : <=1.0. The reference r kat was not used to int erpret this result as normal/abnormal . [facility] HeightsTwdnyyyTHGJXQXGDR0855-77-27 22:53:19 Test Item Value Reference Range Interpretation Comments Lymphocytes (test code = Lymphocytes) 32.9 20.0-40.0 [facility] HeightsUgdbwzaPFMEDZSGOL5516-09-08 22:53:19 Test Item Value Reference Range Interpretation Comments Eosinophils (test code = 1.0 See_Comment [A utomated message] The Eosinophils) system which ge nerated this result tra nsmitted reference range : <=4.0. The reference r kat was not used to int erpret this result as normal/abnormal . [facility] HeightsMejbbxoXRTHTQXCJN2545-45-73 22:53:19 Test Item Value Reference Range Interpretation Comments Lymphocytes # (test code = Lymphocytes 3.8 1.0-5.5 #) [facility] HeightsYkcsejdEOEFDBAYBQ5097-83-57 22:53:19 Test Item Value Reference Range Interpretation Comments Segs-Bands # (test code = Segs-Bands #) 6.6 1.5-8.1 [facility] HeightsKpjxljvTFYANUIPMM0393-19-31 22:53:19 Test Item Value Reference Range Interpretation Comments Monocytes (test code = Monocytes) 7.6 2.0-12.0 [facility] HeightsVnwzejpYKJEXTVLQB5221-17-41 22:53:19 Test Item Value Reference Range Interpretation Comments Eosinophils # (test code 0.1 See_Comment [A utomated message] The = Eosinophils #) system whic h generated this result tra nsmitted reference range : <=0.5. The reference r kat was not used to int erpret this result as normal/abnormal . [facility] HeightsRtthmvmHWCJJNROWO7454-63-96 22:53:19 Test Item Value Reference Range Interpretation Comments Monocytes # (test code 0.9 See_Comment [Aut omated message] The = Monocytes #) system which generated this result tra nsmitted reference range : <=0.8. The reference r kat was not used to int erpret this result as normal/abnormal . [facility] HeightsDihsgcrLFHNJPLZFB8244-84-30 22:53:19 Test Item Value Reference Range Interpretation Comments Microcyte (test code = 1+ *ABN*(06/07/15 Microcyte) 5:53 PM) [facility] HeightsAkcnskaDSPHUECMZV5526-93-19 22:53:19 Test Item Value Reference Range Interpretation Comments Basophils # (test code 0.1 See_Comment [Aut omated message] The = Basophils #) system which generated this result tra nsmitted reference range : <=0.2. The reference r kat was not used to int erpret this result as normal/abnormal . [facility] HeightsWjkkndkRTBEKLLYWD5139-35-17 22:53:19 Test Item Value Reference Range Interpretation Comments RBC (test code = RBC) 5.23 4.20-5.40 [facility] HeightsSbkygbjPZYQNDNLAK8794-83-26 22:53:19 Test Item Value Reference Range Interpretation Comments Platelet (test code = Platelet) 241 133-450 [facility] HeightsYvqcikyQVNEYIYUPS7917-52-30 22:53:19 Test Item Value Reference Range Interpretation Comments MPV (test code = MPV) 9.3 7.4-10.4 [facility] HeightsEjtvqtiDYMNKVECBS3389-84-28 22:53:19 Test Item Value Reference Range Interpretation Comments RDW (test code = RDW) 16.5 11.5-14.5 [facility] HeightsHfrftwkODYRLGAAIJ5531-25-77 22:53:19 Test Item Value Reference Range Interpretation Comments Hct (test code = Hct) 41.0 36.0-48.0 [facility] HeightsVgctoxmBXZJXNOFGN2989-12-14 22:53:19 Test Item Value Reference Range Interpretation Comments Hgb (test code = Hgb) 12.7 12.0-16.0 [facility] HeightsVuczttkQUQZDFYJWH4374-65-62 22:53:19 Test Item Value Reference Range Interpretation Comments Basophils (test code = 1.0 See_Comment [Aut omated message] The Basophils) system which ge nerated this result tra nsmitted reference range : <=1.0. The reference r kat was not used to int erpret this result as normal/abnormal . [facility] HeightsOwszaiwRPESCAVSLQ2412-01-76 22:53:19 Test Item Value Reference Range Interpretation Comments WBC (test code = WBC) 11.5 3.7-10.4 [facility] HeightsPqzphagQWPYJXWNJL0936-49-32 22:53:19 Test Item Value Reference Range Interpretation Comments MCH (test code = MCH) 24.3 pg 27.0-31.0 [facility] HeightsIudcrzqICRBYBOZTS0791-94-11 22:53:19 Test Item Value Reference Range Interpretation Comments MCHC (test code = MCHC) 31.0 32.0-36.0 [facility] HeightsOltqifiAEKMTUHHPL3432-97-87 22:53:19 Test Item Value Reference Range Interpretation Comments MCV (test code = MCV) 78.4 80.0-98.0 [facility]2015-10-09 22:53:19 Test Item Value Reference Range Interpretation Comments FTI (test code = FTI) 2.5 [facility]2015-10-09 22:53:19 Test Item Value Reference Range Interpretation Comments TSH (test code = TSH) 1.540 0.360-3.740 [facility]2015-10-09 22:53:19 Test Item Value Reference Range Interpretation Comments T3 Uptake (test code = T3 Uptake) 31 31-39 [facility]2015-10-09 22:53:19 Test Item Value Reference Range Interpretation Comments T4 (test code = T4) 8.0 4.7-13.3 [facility] HeightsOudkqaoNADLGFIOCM9777-86-03 22:53:19 Test Item Value Reference Range Interpretation Comments Lymphocytes (test code = Lymphocytes) 32.9 20.0-40.0 [facility] HeightsKbgdxdvFDSSVNBEVS0281-17-53 22:53:19 Test Item Value Reference Range Interpretation Comments Eosinophils (test code = 1.0 See_Comment [A utomated message] The Eosinophils) system which ge nerated this result tra nsmitted reference range : <=4.0. The reference r kat was not used to int erpret this result as normal/abnormal . [facility] HeightsDysizoqWDGYNNUDIA4711-87-18 22:53:19 Test Item Value Reference Range Interpretation Comments Lymphocytes # (test code = Lymphocytes 3.8 1.0-5.5 #) [facility] HeightsKbptieqOIPNQGPPNT0160-34-05 22:53:19 Test Item Value Reference Range Interpretation Comments Segs-Bands # (test code = Segs-Bands #) 6.6 1.5-8.1 [facility] HeightsOhvznwaIQKZIHNUBR9821-99-38 22:53:19 Test Item Value Reference Range Interpretation Comments Eosinophils # (test code 0.1 See_Comment [A utomated message] The = Eosinophils #) system whic h generated this result tra nsmitted reference range : <=0.5. The reference r kat was not used to int erpret this result as normal/abnormal . [facility] HeightsEwrnknjJULDJSPDWC1954-95-80 22:53:19 Test Item Value Reference Range Interpretation Comments Monocytes # (test code 0.9 See_Comment [Aut omated message] The = Monocytes #) system which generated this result tra nsmitted reference range : <=0.8. The reference r kat was not used to int erpret this result as normal/abnormal . [facility] HeightsNqoegobSAWWOLQMLL2446-22-91 22:53:19 Test Item Value Reference Range Interpretation Comments Microcyte (test code = 1+ *ABN*(06/07/15 Microcyte) 5:53 PM) [facility] HeightsEmohkykEVTNFTKCQD0564-96-59 22:53:19 Test Item Value Reference Range Interpretation Comments Basophils # (test code 0.1 See_Comment [Aut omated message] The = Basophils #) system which generated this result tra nsmitted reference range : <=0.2. The reference r kat was not used to int erpret this result as normal/abnormal . [facility] HeightsDzsmbxlGEMUQQAITN9547-79-50 22:53:19 Test Item Value Reference Range Interpretation Comments RBC (test code = RBC) 5.23 4.20-5.40 [facility] HeightsSdcqflzCYQYIUAISA8512-20-09 22:53:19 Test Item Value Reference Range Interpretation Comments Platelet (test code = Platelet) 241 133-450 [facility] HeightsCcxjznrRDZBEXFOIO3414-81-58 22:53:19 Test Item Value Reference Range Interpretation Comments MPV (test code = MPV) 9.3 7.4-10.4 [facility] HeightsSzqvetnLRKPMJYEQE0519-05-94 22:53:19 Test Item Value Reference Range Interpretation Comments RDW (test code = RDW) 16.5 11.5-14.5 [facility] HeightsGqlqcbyOTOBLGLRXT4776-09-77 22:53:19 Test Item Value Reference Range Interpretation Comments Hct (test code = Hct) 41.0 36.0-48.0 [facility] HeightsWcevbmvLIDWEGBDIQ4753-71-90 22:53:19 Test Item Value Reference Range Interpretation Comments Hgb (test code = Hgb) 12.7 12.0-16.0 [facility] HeightsQepekmcRKDJRTSDKG4530-58-40 22:53:19 Test Item Value Reference Range Interpretation Comments WBC (test code = WBC) 11.5 3.7-10.4 [facility] HeightsXomyogzDEUJMWBDXQ4187-81-45 22:53:19 Test Item Value Reference Range Interpretation Comments MCH (test code = MCH) 24.3 pg 27.0-31.0 [facility] HeightsVjsaydrRLCDYJOYEN3816-23-27 22:53:19 Test Item Value Reference Range Interpretation Comments MCHC (test code = MCHC) 31.0 32.0-36.0 [facility] HeightsHdldowiXJXIWCFZXT9161-32-15 22:53:19 Test Item Value Reference Range Interpretation Comments MCV (test code = MCV) 78.4 80.0-98.0 [facility] KEQTF0559-90-11 22:53:19 Test Item Value Reference Range Interpretation Comments FTI (test code = FTI) 2.5 [facility]2015-10-09 22:53:19 Test Item Value Reference Range Interpretation Comments TSH (test code = TSH) 1.540 0.360-3.740 [facility]2015-10-09 22:53:19 Test Item Value Reference Range Interpretation Comments T3 Uptake (test code = T3 Uptake) 31 31-39 [facility] CENTERMTPGP0677-76-18 22:53:19 Test Item Value Reference Range Interpretation Comments T4 (test code = T4) 8.0 4.7-13.3 [facility]2015-10-09 22:53:19 Test Item Value Reference Range Interpretation Comments Transferrin (test code = Transferrin) 256 212-360 [facility]2015-10-09 22:53:19 Test Item Value Reference Range Interpretation Comments Vitamin B12 Lvl (test code = Vitamin [phone] B12 Lvl) [facility]2015-10-09 22:53:19 Test Item Value Reference Range Interpretation Comments eGFR (test code = eGFR) 70 [facility]2015-10-09 22:53:19 Test Item Value Reference Range Interpretation Comments Glucose Lvl (test code = Glucose Lvl) 103 70-99 [facility]2015-10-09 22:53:19 Test Item Value Reference Range Interpretation Comments Albumin Lvl (test code = Albumin Lvl) 3.6 3.5-5.0 [facility]2015-10-09 22:53:19 Test Item Value Reference Range Interpretation Comments CO2 (test code = CO2) 24 24-32 [facility]2015-10-09 22:53:19 Test Item Value Reference Range Interpretation Comments Total Protein (test code = Total 7.2 6.4-8.4 Protein) [facility]2015-10-09 22:53:19 Test Item Value Reference Range Interpretation Comments Creatinine Lvl (test code = Creatinine 1.1 0.5-1.4 Lvl) [facility]2015-10-09 22:53:19 Test Item Value Reference Range Interpretation Comments BUN (test code = BUN) 14 7-22 [facility]2015-10-09 22:53:19 Test Item Value Reference Range Interpretation Comments AST (test code = AST) 12 See_Comment [Auto mated message] The system which ge nerated this result transmit arvind reference range : <=37. The reference range was not used to interpr et this result as mario l/abnormal. [facility]2015-10-09 22:53:19 Test Item Value Reference Range Interpretation Comments ALT (test code = ALT) 41 See_Comment [Auto mated message] The system which ge nerated this result transmit arvind reference range : <=65. The reference range was not used to interpr et this result as mario l/abnormal. [facility]2015-10-09 22:53:19 Test Item Value Reference Range Interpretation Comments Alk Phos (test code = Alk Phos) 100 39-136 [facility]2015-10-09 22:53:19 Test Item Value Reference Range Interpretation Comments Bili Total (test code = Bili Total) 0.2 0.2-1.3 [facility]2015-10-09 22:53:19 Test Item Value Reference Range Interpretation Comments Potassium Lvl (test code = Potassium 3.9 3.5-5.1 Lvl) [facility]2015-10-09 22:53:19 Test Item Value Reference Range Interpretation Comments Sodium Lvl (test code = Sodium Lvl) 141 135-145 [facility]2015-10-09 22:53:19 Test Item Value Reference Range Interpretation Comments Calcium Lvl (test code = Calcium Lvl) 9.0 8.5-10.5 [facility]2015-10-09 22:53:19 Test Item Value Reference Range Interpretation Comments Chloride Lvl (test code = Chloride Lvl) 109 95-109 [facility]2015-10-09 22:53:19 Test Item Value Reference Range Interpretation Comments AGAP (test code = AGAP) 11.9 10.0-20.0 [facility]2015-10-09 22:53:19 Test Item Value Reference Range Interpretation Comments A/G Ratio (test code = A/G Ratio) 1.0 0.7-1.6 [facility]2015-10-09 22:53:19 Test Item Value Reference Range Interpretation Comments B/C Ratio (test code = B/C Ratio) 13 6-25 [facility]2015-10-09 22:53:19 Test Item Value Reference Range Interpretation Comments Globulin (test code = Globulin) 3.6 2.0-4.0 [facility]2015-10-09 22:53:19 Test Item Value Reference Range Interpretation Comments Magnesium Lvl (test code = Magnesium 1.8 1.8-2.4 Lvl) [facility]CqafebhUZOZNGBIBO1907-31-65 22:53:19 Test Item Value Reference Range Interpretation Comments Segs (test code = Segs) 57.5 45.0-75.0 [facility] HeightsTpegahdAHFOVTJHBF9661-94-81 22:53:19 Test Item Value Reference Range Interpretation Comments Monocytes (test code = Monocytes) 7.6 2.0-12.0 [facility] HeightsKapezczAWYZZUSRCC2890-64-30 22:53:19 Test Item Value Reference Range Interpretation Comments Basophils (test code = 1.0 See_Comment [Aut omated message] The Basophils) system which ge nerated this result tra nsmitted reference range : <=1.0. The reference r kat was not used to int erpret this result as normal/abnormal . [facility] HeightsUbtozpvJAOUJGAJLH7680-32-78 22:53:19 Test Item Value Reference Range Interpretation Comments Lymphocytes (test code = Lymphocytes) 32.9 20.0-40.0 [facility] HeightsZmonxztWOOFYRRAGB6055-59-72 22:53:19 Test Item Value Reference Range Interpretation Comments Eosinophils (test code = 1.0 See_Comment [A utomated message] The Eosinophils) system which ge nerated this result tra nsmitted reference range : <=4.0. The reference r kat was not used to int erpret this result as normal/abnormal . [facility] HeightsKtwipcaAGYUQIXQRF5724-35-47 22:53:19 Test Item Value Reference Range Interpretation Comments Lymphocytes # (test code = Lymphocytes 3.8 1.0-5.5 #) [facility] HeightsOafjvroSYWAWZJQZP6394-46-93 22:53:19 Test Item Value Reference Range Interpretation Comments Segs-Bands # (test code = Segs-Bands #) 6.6 1.5-8.1 [facility] HeightsSdulbzsUXEDHSBORG3099-27-12 22:53:19 Test Item Value Reference Range Interpretation Comments Eosinophils # (test code 0.1 See_Comment [A utomated message] The = Eosinophils #) system whic h generated this result tra nsmitted reference range : <=0.5. The reference r kat was not used to int erpret this result as normal/abnormal . [facility] HeightsTphfzyuQYBMENYEMJ7541-84-79 22:53:19 Test Item Value Reference Range Interpretation Comments Monocytes # (test code 0.9 See_Comment [Aut omated message] The = Monocytes #) system which generated this result tra nsmitted reference range : <=0.8. The reference r kat was not used to int erpret this result as normal/abnormal . [facility] HeightsVpyyvvdYBHCWDOGIR8584-79-35 22:53:19 Test Item Value Reference Range Interpretation Comments Microcyte (test code = 1+ *ABN*(06/07/15 Microcyte) 5:53 PM) [facility] HeightsGfzafwgRMXYMWROMX6594-24-32 22:53:19 Test Item Value Reference Range Interpretation Comments Basophils # (test code 0.1 See_Comment [Aut omated message] The = Basophils #) system which generated this result tra nsmitted reference range : <=0.2. The reference r kat was not used to int erpret this result as normal/abnormal . [facility] HeightsVacjvagZGUIWITXBC6232-37-58 22:53:19 Test Item Value Reference Range Interpretation Comments RBC (test code = RBC) 5.23 4.20-5.40 [facility] HeightsCsuwydbDWBTZJZITE6691-36-34 22:53:19 Test Item Value Reference Range Interpretation Comments Platelet (test code = Platelet) 241 133-450 [facility] HeightsXicfqjdRPQHNOHYZL7545-70-68 22:53:19 Test Item Value Reference Range Interpretation Comments MPV (test code = MPV) 9.3 7.4-10.4 [facility] HeightsKidolbhZBMHXBVYHK2392-56-57 22:53:19 Test Item Value Reference Range Interpretation Comments RDW (test code = RDW) 16.5 11.5-14.5 [facility] HeightsLfhnprrLADXXJZCSA6189-71-76 22:53:19 Test Item Value Reference Range Interpretation Comments Hct (test code = Hct) 41.0 36.0-48.0 [facility] HeightsEwrxunfWXURWADDUI5939-60-17 22:53:19 Test Item Value Reference Range Interpretation Comments Hgb (test code = Hgb) 12.7 12.0-16.0 [facility] HeightsAcezoxwOCJKOOIHCK0809-00-63 22:53:19 Test Item Value Reference Range Interpretation Comments WBC (test code = WBC) 11.5 3.7-10.4 [facility] HeightsMzgxrptKFFTBQEQCI6010-43-49 22:53:19 Test Item Value Reference Range Interpretation Comments MCH (test code = MCH) 24.3 pg 27.0-31.0 [facility] HeightsKrcehfvJODKXHTCNO6806-26-97 22:53:19 Test Item Value Reference Range Interpretation Comments MCHC (test code = MCHC) 31.0 32.0-36.0 [facility] HeightsIdicfwdOGJHHPNLLN0062-66-22 22:53:19 Test Item Value Reference Range Interpretation Comments MCV (test code = MCV) 78.4 80.0-98.0 [id number] 22:53:19 Test Item Value Reference Range Interpretation Comments FTI (test code = FTI) 2.5 [facility] ZFSKZ7377[facility]19-49 22:53:19 Test Item Value Reference Range Interpretation Comments TSH (test code = TSH) 1.540 0.360-3.740 [facility] EHFXH7148[facility]76-90 22:53:19 Test Item Value Reference Range Interpretation Comments T3 Uptake (test code = T3 Uptake) 31 31-39 [facility] EKKUJ3811-14-97 22:53:19 Test Item Value Reference Range Interpretation Comments T4 (test code = T4) 8.0 4.7-13.3 [facility]2015-10-09 22:53:19 Test Item Value Reference Range Interpretation Comments Transferrin (test code = Transferrin) 256 212-360 [facility]2015-10-09 22:53:19 Test Item Value Reference Range Interpretation Comments Vitamin B12 Lvl (test code = Vitamin 493 720-9815 B12 Lvl) [facility]2015-10-09 22:53:19 Test Item Value Reference Range Interpretation Comments eGFR (test code = eGFR) 70 [facility]2015-10-09 22:53:19 Test Item Value Reference Range Interpretation Comments Glucose Lvl (test code = Glucose Lvl) 103 70-99 [facility]2015-10-09 22:53:19 Test Item Value Reference Range Interpretation Comments Albumin Lvl (test code = Albumin Lvl) 3.6 3.5-5.0 [facility]2015-10-09 22:53:19 Test Item Value Reference Range Interpretation Comments CO2 (test code = CO2) 24 24-32 [facility]2015-10-09 22:53:19 Test Item Value Reference Range Interpretation Comments Total Protein (test code = Total 7.2 6.4-8.4 Protein) [facility]2015-10-09 22:53:19 Test Item Value Reference Range Interpretation Comments Creatinine Lvl (test code = Creatinine 1.1 0.5-1.4 Lvl) [facility]2015-10-09 22:53:19 Test Item Value Reference Range Interpretation Comments BUN (test code = BUN) 14 7-22 [facility]2015-10-09 22:53:19 Test Item Value Reference Range Interpretation Comments AST (test code = AST) 12 See_Comment [Auto mated message] The system which ge nerated this result transmit arvind reference range : <=37. The reference range was not used to interpr et this result as mario l/abnormal. [facility]2015-10-09 22:53:19 Test Item Value Reference Range Interpretation Comments ALT (test code = ALT) 41 See_Comment [Auto mated message] The system which ge nerated this result transmit arvind reference range : <=65. The reference range was not used to interpr et this result as mario l/abnormal. [facility]2015-10-09 22:53:19 Test Item Value Reference Range Interpretation Comments Alk Phos (test code = Alk Phos) 100 39-136 [facility]2015-10-09 22:53:19 Test Item Value Reference Range Interpretation Comments Bili Total (test code = Bili Total) 0.2 0.2-1.3 [facility]2015-10-09 22:53:19 Test Item Value Reference Range Interpretation Comments Potassium Lvl (test code = Potassium 3.9 3.5-5.1 Lvl) [facility]2015-10-09 22:53:19 Test Item Value Reference Range Interpretation Comments Sodium Lvl (test code = Sodium Lvl) 141 135-145 [facility]2015-10-09 22:53:19 Test Item Value Reference Range Interpretation Comments Calcium Lvl (test code = Calcium Lvl) 9.0 8.5-10.5 [facility]2015-10-09 22:53:19 Test Item Value Reference Range Interpretation Comments Chloride Lvl (test code = Chloride Lvl) 109 95-109 [facility]2015-10-09 22:53:19 Test Item Value Reference Range Interpretation Comments AGAP (test code = AGAP) 11.9 10.0-20.0 [facility]2015-10-09 22:53:19 Test Item Value Reference Range Interpretation Comments A/G Ratio (test code = A/G Ratio) 1.0 0.7-1.6 [facility]2015-10-09 22:53:19 Test Item Value Reference Range Interpretation Comments B/C Ratio (test code = B/C Ratio) 13 6-25 [facility]2015-10-09 22:53:19 Test Item Value Reference Range Interpretation Comments Globulin (test code = Globulin) 3.6 2.0-4.0 [facility]2015-10-09 22:53:19 Test Item Value Reference Range Interpretation Comments Magnesium Lvl (test code = Magnesium 1.8 1.8-2.4 Lvl) [facility] HeightsNrseylwVFOAMOYOBG2014-54-51 22:53:19 Test Item Value Reference Range Interpretation Comments Segs (test code = Segs) 57.5 45.0-75.0 [facility] HeightsFgjvhtoNKBFFCHREK5915-91-56 22:53:19 Test Item Value Reference Range Interpretation Comments Monocytes (test code = Monocytes) 7.6 2.0-12.0 [facility] HeightsNahmczdSFSKBZIVCP9480-82-29 22:53:19 Test Item Value Reference Range Interpretation Comments Basophils (test code = 1.0 See_Comment [Aut omated message] The Basophils) system which ge nerated this result tra nsmitted reference range : <=1.0. The reference r kat was not used to int erpret this result as normal/abnormal . [facility] HeightsVsvcmskBUVKSMFPZS9061-33-00 22:53:19 Test Item Value Reference Range Interpretation Comments Lymphocytes (test code = Lymphocytes) 32.9 20.0-40.0 [facility] HeightsHdsgaonJSGSVGVSOI8408-50-61 22:53:19 Test Item Value Reference Range Interpretation Comments Eosinophils (test code = 1.0 See_Comment [A utomated message] The Eosinophils) system which ge nerated this result tra nsmitted reference range : <=4.0. The reference r kat was not used to int erpret this result as normal/abnormal . [facility] HeightsMqfhfjtBFVWRLOWIL1127-42-86 22:53:19 Test Item Value Reference Range Interpretation Comments Lymphocytes # (test code = Lymphocytes 3.8 1.0-5.5 #) [facility] HeightsFkklwveTCQOTFEDXK3867-71-40 22:53:19 Test Item Value Reference Range Interpretation Comments Segs-Bands # (test code = Segs-Bands #) 6.6 1.5-8.1 [facility] HeightsAemblvsJYPVTRFYYK2244-75-21 22:53:19 Test Item Value Reference Range Interpretation Comments Eosinophils # (test code 0.1 See_Comment [A utomated message] The = Eosinophils #) system whic h generated this result tra nsmitted reference range : <=0.5. The reference r kat was not used to int erpret this result as normal/abnormal . [facility] HeightsDvexggwTEGTSYEVSA6120-83-19 22:53:19 Test Item Value Reference Range Interpretation Comments Monocytes # (test code 0.9 See_Comment [Aut omated message] The = Monocytes #) system which generated this result tra nsmitted reference range : <=0.8. The reference r kat was not used to int erpret this result as normal/abnormal . [facility] HeightsVovzghkOPSAEGFSSC6615-71-67 22:53:19 Test Item Value Reference Range Interpretation Comments Microcyte (test code = 1+ *ABN*(06/07/15 Microcyte) 5:53 PM) [facility] HeightsXzttzdcKGSXOMEQEA8004-37-23 22:53:19 Test Item Value Reference Range Interpretation Comments Basophils # (test code 0.1 See_Comment [Aut omated message] The = Basophils #) system which generated this result tra nsmitted reference range : <=0.2. The reference r kat was not used to int erpret this result as normal/abnormal . [facility] HeightsZkzsqjrSMIZHRDFKH4944-25-16 22:53:19 Test Item Value Reference Range Interpretation Comments RBC (test code = RBC) 5.23 4.20-5.40 [facility] HeightsTpwnjkjBUQJLURBFB2500-87-07 22:53:19 Test Item Value Reference Range Interpretation Comments Platelet (test code = Platelet) 241 133-450 [facility] HeightsIrvkremKIUFQRNKYT8695-79-75 22:53:19 Test Item Value Reference Range Interpretation Comments MPV (test code = MPV) 9.3 7.4-10.4 [facility] HeightsVdudomdBJTHYBNOHM4529-09-35 22:53:19 Test Item Value Reference Range Interpretation Comments RDW (test code = RDW) 16.5 11.5-14.5 [facility] HeightsWbwfcadQUFKZFIEPF9112-18-32 22:53:19 Test Item Value Reference Range Interpretation Comments Hct (test code = Hct) 41.0 36.0-48.0 [facility] HeightsKroelebRBDIVMBXAF3503-55-34 22:53:19 Test Item Value Reference Range Interpretation Comments Hgb (test code = Hgb) 12.7 12.0-16.0 [facility] HeightsWrsejxtOCPZVZEICU3283-99-53 22:53:19 Test Item Value Reference Range Interpretation Comments WBC (test code = WBC) 11.5 3.7-10.4 [facility] HeightsYxgjcpvWONURJWIPZ6862-21-86 22:53:19 Test Item Value Reference Range Interpretation Comments MCH (test code = MCH) 24.3 pg 27.0-31.0 [facility] HeightsAhoyrqjTQSHXJLRJJ9079-66-43 22:53:19 Test Item Value Reference Range Interpretation Comments MCHC (test code = MCHC) 31.0 32.0-36.0 [facility] HeightsYbbhllpGPBNKXWHWG1030-84-94 22:53:19 Test Item Value Reference Range Interpretation Comments MCV (test code = MCV) 78.4 80.0-98.0 [facility]2015-10-09 22:53:19 Test Item Value Reference Range Interpretation Comments FTI (test code = FTI) 2.5 [facility]2015-10-09 22:53:19 Test Item Value Reference Range Interpretation Comments TSH (test code = TSH) 1.540 0.360-3.740 [facility]2015-10-09 22:53:19 Test Item Value Reference Range Interpretation Comments T3 Uptake (test code = T3 Uptake) 31 31-39 [facility]2015-10-09 22:53:19 Test Item Value Reference Range Interpretation Comments T4 (test code = T4) 8.0 4.7-13.3 [facility]2015-10-09 22:53:19 Test Item Value Reference Range Interpretation Comments Transferrin (test code = Transferrin) 256 212-360 [facility]2015-10-09 22:53:19 Test Item Value Reference Range Interpretation Comments Vitamin B12 Lvl (test code = Vitamin 932 900-1309 B12 Lvl) [facility]2015-10-09 22:53:19 Test Item Value Reference Range Interpretation Comments eGFR (test code = eGFR) 70 [facility]2015-10-09 22:53:19 Test Item Value Reference Range Interpretation Comments Glucose Lvl (test code = Glucose Lvl) 103 70-99 [facility]2015-10-09 22:53:19 Test Item Value Reference Range Interpretation Comments Albumin Lvl (test code = Albumin Lvl) 3.6 3.5-5.0 [facility]2015-10-09 22:53:19 Test Item Value Reference Range Interpretation Comments CO2 (test code = CO2) 24 24-32 [facility]2015-10-09 22:53:19 Test Item Value Reference Range Interpretation Comments Total Protein (test code = Total 7.2 6.4-8.4 Protein) [facility]2015-10-09 22:53:19 Test Item Value Reference Range Interpretation Comments Creatinine Lvl (test code = Creatinine 1.1 0.5-1.4 Lvl) [facility]2015-10-09 22:53:19 Test Item Value Reference Range Interpretation Comments BUN (test code = BUN) 14 7-22 [facility]2015-10-09 22:53:19 Test Item Value Reference Range Interpretation Comments AST (test code = AST) 12 See_Comment [Auto mated message] The system which ge nerated this result transmit arvind reference range : <=37. The reference range was not used to interpr et this result as mario l/abnormal. [facility]2015-10-09 22:53:19 Test Item Value Reference Range Interpretation Comments ALT (test code = ALT) 41 See_Comment [Auto mated message] The system which ge nerated this result transmit arvind reference range : <=65. The reference range was not used to interpr et this result as mario l/abnormal. [facility]2015-10-09 22:53:19 Test Item Value Reference Range Interpretation Comments Alk Phos (test code = Alk Phos) 100 39-136 [facility]2015-10-09 22:53:19 Test Item Value Reference Range Interpretation Comments Bili Total (test code = Bili Total) 0.2 0.2-1.3 [facility]2015-10-09 22:53:19 Test Item Value Reference Range Interpretation Comments Potassium Lvl (test code = Potassium 3.9 3.5-5.1 Lvl) [facility]2015-10-09 22:53:19 Test Item Value Reference Range Interpretation Comments Sodium Lvl (test code = Sodium Lvl) 141 135-145 [facility]2015-10-09 22:53:19 Test Item Value Reference Range Interpretation Comments Calcium Lvl (test code = Calcium Lvl) 9.0 8.5-10.5 [facility]2015-10-09 22:53:19 Test Item Value Reference Range Interpretation Comments Chloride Lvl (test code = Chloride Lvl) 109 95-109 [facility]2015-10-09 22:53:19 Test Item Value Reference Range Interpretation Comments AGAP (test code = AGAP) 11.9 10.0-20.0 [facility]2015-10-09 22:53:19 Test Item Value Reference Range Interpretation Comments A/G Ratio (test code = A/G Ratio) 1.0 0.7-1.6 [facility]2015-10-09 22:53:19 Test Item Value Reference Range Interpretation Comments B/C Ratio (test code = B/C Ratio) 13 6-25 [facility]2015-10-09 22:53:19 Test Item Value Reference Range Interpretation Comments Globulin (test code = Globulin) 3.6 2.0-4.0 [facility]2015-10-09 22:53:19 Test Item Value Reference Range Interpretation Comments Magnesium Lvl (test code = Magnesium 1.8 1.8-2.4 Lvl) [facility] HeightsYrfhpxeYEROASBGBY1194-39-56 22:53:19 Test Item Value Reference Range Interpretation Comments Segs (test code = Segs) 57.5 45.0-75.0 [facility] HeightsPfojmlzPGZVGXXOIA5042-00-72 22:53:19 Test Item Value Reference Range Interpretation Comments Monocytes (test code = Monocytes) 7.6 2.0-12.0 [facility] HeightsBcrfqafCDEIMQYISO6297-35-31 22:53:19 Test Item Value Reference Range Interpretation Comments Basophils (test code = 1.0 See_Comment [Aut omated message] The Basophils) system which ge nerated this result tra nsmitted reference range : <=1.0. The reference r kat was not used to int erpret this result as normal/abnormal . [facility] HeightsBmssojjXDUNOBBFOE9110-56-17 22:53:19 Test Item Value Reference Range Interpretation Comments Lymphocytes (test code = Lymphocytes) 32.9 20.0-40.0 [facility] HeightsVkariymHMCPUPBPLS2689-14-07 22:53:19 Test Item Value Reference Range Interpretation Comments Eosinophils (test code = 1.0 See_Comment [A utomated message] The Eosinophils) system which ge nerated this result tra nsmitted reference range : <=4.0. The reference r kat was not used to int erpret this result as normal/abnormal . [facility] HeightsBqxqbdhCYKESZDTNL8262-79-08 22:53:19 Test Item Value Reference Range Interpretation Comments Lymphocytes # (test code = Lymphocytes 3.8 1.0-5.5 #) [facility] HeightsPzakgolPBENEHNXJK5644-80-30 22:53:19 Test Item Value Reference Range Interpretation Comments Segs-Bands # (test code = Segs-Bands #) 6.6 1.5-8.1 [facility] HeightsWlfrnlzEIBWGUDGNB3996-74-10 22:53:19 Test Item Value Reference Range Interpretation Comments Eosinophils # (test code 0.1 See_Comment [A utomated message] The = Eosinophils #) system whic h generated this result tra nsmitted reference range : <=0.5. The reference r kat was not used to int erpret this result as normal/abnormal . [facility] HeightsGfjffxdDKKEAOLBSZ8601-98-63 22:53:19 Test Item Value Reference Range Interpretation Comments Monocytes # (test code 0.9 See_Comment [Aut omated message] The = Monocytes #) system which generated this result tra nsmitted reference range : <=0.8. The reference r kat was not used to int erpret this result as normal/abnormal . [facility] HeightsYjplpbiJEPYTTXXVG2101-41-32 22:53:19 Test Item Value Reference Range Interpretation Comments Microcyte (test code = 1+ *ABN*(06/07/15 Microcyte) 5:53 PM) [facility] HeightsRtqcvitXIYMVBNYKQ0590-46-20 22:53:19 Test Item Value Reference Range Interpretation Comments Basophils # (test code 0.1 See_Comment [Aut omated message] The = Basophils #) system which generated this result tra nsmitted reference range : <=0.2. The reference r kat was not used to int erpret this result as normal/abnormal . [facility] HeightsFcvctyrKPXKAOKRSS5281-87-71 22:53:19 Test Item Value Reference Range Interpretation Comments RBC (test code = RBC) 5.23 4.20-5.40 [facility] HeightsGzvuszvSWLTWGUIAD5277-90-60 22:53:19 Test Item Value Reference Range Interpretation Comments Platelet (test code = Platelet) 241 133-450 [facility] HeightsRdxvnoeFMCHNHWTKP0217-57-98 22:53:19 Test Item Value Reference Range Interpretation Comments MPV (test code = MPV) 9.3 7.4-10.4 [facility] HeightsYvppprcVWIWZXLDOL9836-66-77 22:53:19 Test Item Value Reference Range Interpretation Comments RDW (test code = RDW) 16.5 11.5-14.5 [facility] HeightsWilzgriQSEZQNVUCY3765-05-58 22:53:19 Test Item Value Reference Range Interpretation Comments Hct (test code = Hct) 41.0 36.0-48.0 [facility] HeightsZwdclnzJQXBZDEOAD7718-61-63 22:53:19 Test Item Value Reference Range Interpretation Comments Hgb (test code = Hgb) 12.7 12.0-16.0 [facility] HeightsRzpkmqfJBRFWZDUAA0241-18-99 22:53:19 Test Item Value Reference Range Interpretation Comments WBC (test code = WBC) 11.5 3.7-10.4 [facility] HeightsNexhltvOLXHOSRTPH7618-76-36 22:53:19 Test Item Value Reference Range Interpretation Comments MCH (test code = MCH) 24.3 pg 27.0-31.0 [facility] HeightsEidduvnZTKNLZEFDG3243-71-28 22:53:19 Test Item Value Reference Range Interpretation Comments MCHC (test code = MCHC) 31.0 32.0-36.0 [facility] HeightsBbiecmaGWIQTNFOTM9475-84-69 22:53:19 Test Item Value Reference Range Interpretation Comments MCV (test code = MCV) 78.4 80.0-98.0 [id number] 22:53:19 Test Item Value Reference Range Interpretation Comments FTI (test code = FTI) 2.5 [facility]2015-10-09 22:53:19 Test Item Value Reference Range Interpretation Comments TSH (test code = TSH) 1.540 0.360-3.740 [facility]2015-10-09 22:53:19 Test Item Value Reference Range Interpretation Comments T3 Uptake (test code = T3 Uptake) 31 31-39 [facility] [id number] 22:53:19 Test Item Value Reference Range Interpretation Comments T4 (test code = T4) 8.0 4.7-13.3 [facility]2015-10-09 22:53:19 Test Item Value Reference Range Interpretation Comments Transferrin (test code = Transferrin) 256 212-360 [facility]2015-10-09 22:53:19 Test Item Value Reference Range Interpretation Comments Vitamin B12 Lvl (test code = Vitamin [phone] B12 Lvl) [facility]2015-10-09 22:53:19 Test Item Value Reference Range Interpretation Comments eGFR (test code = eGFR) 70 [facility]2015-10-09 22:53:19 Test Item Value Reference Range Interpretation Comments Glucose Lvl (test code = Glucose Lvl) 103 70-99 [facility]2015-10-09 22:53:19 Test Item Value Reference Range Interpretation Comments Albumin Lvl (test code = Albumin Lvl) 3.6 3.5-5.0 [facility]2015-10-09 22:53:19 Test Item Value Reference Range Interpretation Comments CO2 (test code = CO2) 24 24-32 [facility]2015-10-09 22:53:19 Test Item Value Reference Range Interpretation Comments Total Protein (test code = Total 7.2 6.4-8.4 Protein) [facility]2015-10-09 22:53:19 Test Item Value Reference Range Interpretation Comments Creatinine Lvl (test code = Creatinine 1.1 0.5-1.4 Lvl) [facility]2015-10-09 22:53:19 Test Item Value Reference Range Interpretation Comments BUN (test code = BUN) 14 7-22 [facility]2015-10-09 22:53:19 Test Item Value Reference Range Interpretation Comments AST (test code = AST) 12 See_Comment [Auto mated message] The system which ge nerated this result transmit arvind reference range : <=37. The reference range was not used to interpr et this result as mario l/abnormal. [facility]2015-10-09 22:53:19 Test Item Value Reference Range Interpretation Comments ALT (test code = ALT) 41 See_Comment [Auto mated message] The system which ge nerated this result transmit arvind reference range : <=65. The reference range was not used to interpr et this result as mario l/abnormal. [facility]2015-10-09 22:53:19 Test Item Value Reference Range Interpretation Comments Alk Phos (test code = Alk Phos) 100 39-136 [facility]2015-10-09 22:53:19 Test Item Value Reference Range Interpretation Comments Bili Total (test code = Bili Total) 0.2 0.2-1.3 [facility]2015-10-09 22:53:19 Test Item Value Reference Range Interpretation Comments Potassium Lvl (test code = Potassium 3.9 3.5-5.1 Lvl) [facility]2015-10-09 22:53:19 Test Item Value Reference Range Interpretation Comments Sodium Lvl (test code = Sodium Lvl) 141 135-145 [facility]2015-10-09 22:53:19 Test Item Value Reference Range Interpretation Comments Calcium Lvl (test code = Calcium Lvl) 9.0 8.5-10.5 [facility]2015-10-09 22:53:19 Test Item Value Reference Range Interpretation Comments Chloride Lvl (test code = Chloride Lvl) 109 95-109 [facility]2015-10-09 22:53:19 Test Item Value Reference Range Interpretation Comments AGAP (test code = AGAP) 11.9 10.0-20.0 [facility]2015-10-09 22:53:19 Test Item Value Reference Range Interpretation Comments A/G Ratio (test code = A/G Ratio) 1.0 0.7-1.6 [facility]2015-10-09 22:53:19 Test Item Value Reference Range Interpretation Comments B/C Ratio (test code = B/C Ratio) 13 6-25 [facility]2015-10-09 22:53:19 Test Item Value Reference Range Interpretation Comments Globulin (test code = Globulin) 3.6 2.0-4.0 [facility]2015-10-09 22:53:19 Test Item Value Reference Range Interpretation Comments Magnesium Lvl (test code = Magnesium 1.8 1.8-2.4 Lvl) [facility] HeightsIkzpmqvMWPXMZJKLO8322-36-70 22:53:19 Test Item Value Reference Range Interpretation Comments Segs (test code = Segs) 57.5 45.0-75.0 [facility] HeightsDozpgrgOYNDHJJODP3303-92-27 22:53:19 Test Item Value Reference Range Interpretation Comments Monocytes (test code = Monocytes) 7.6 2.0-12.0 [facility] HeightsEwyuaggEEHTMGJQWC3527-76-96 22:53:19 Test Item Value Reference Range Interpretation Comments Basophils (test code = 1.0 See_Comment [Aut omated message] The Basophils) system which ge nerated this result tra nsmitted reference range : <=1.0. The reference r kat was not used to int erpret this result as normal/abnormal . [facility] HeightsMlrimaqUFSELHFVXE2308-27-96 22:53:19 Test Item Value Reference Range Interpretation Comments Lymphocytes (test code = Lymphocytes) 32.9 20.0-40.0 [facility] HeightsWfopbbvVKFTJCHDPI1679-56-73 22:53:19 Test Item Value Reference Range Interpretation Comments Eosinophils (test code = 1.0 See_Comment [A utomated message] The Eosinophils) system which ge nerated this result tra nsmitted reference range : <=4.0. The reference r kat was not used to int erpret this result as normal/abnormal . [facility] HeightsYvxjgnzYXNASQDYZC8287-66-46 22:53:19 Test Item Value Reference Range Interpretation Comments Lymphocytes # (test code = Lymphocytes 3.8 1.0-5.5 #) [facility] HeightsSwvplhzRXAWBRGWMC9414-79-19 22:53:19 Test Item Value Reference Range Interpretation Comments Segs-Bands # (test code = Segs-Bands #) 6.6 1.5-8.1 [facility] HeightsHhauqfvEJYVCNPJZJ4141-84-71 22:53:19 Test Item Value Reference Range Interpretation Comments Eosinophils # (test code 0.1 See_Comment [A utomated message] The = Eosinophils #) system wh h generated this result tra nsmitted reference range : <=0.5. The reference r kat was not used to int erpret this result as normal/abnormal . [facility] HeightsIhvrtdkZNUREPGIME8071-91-09 22:53:19 Test Item Value Reference Range Interpretation Comments Monocytes # (test code 0.9 See_Comment [Aut omated message] The = Monocytes #) system which generated this result tra nsmitted reference range : <=0.8. The reference r kat was not used to int erpret this result as normal/abnormal . [facility] HeightsPaiokamSLEZMWLPLP9427-95-42 22:53:19 Test Item Value Reference Range Interpretation Comments Microcyte (test code = 1+ *ABN*(06/07/15 Microcyte) 5:53 PM) [facility] HeightsBaagherQPFKYXFHTO0835-47-04 22:53:19 Test Item Value Reference Range Interpretation Comments Basophils # (test code 0.1 See_Comment [Aut omated message] The = Basophils #) system which generated this result tra nsmitted reference range : <=0.2. The reference r kat was not used to int erpret this result as normal/abnormal . [facility] HeightsYxrboenDBGXWGBHJB3002-08-02 22:53:19 Test Item Value Reference Range Interpretation Comments RBC (test code = RBC) 5.23 4.20-5.40 [facility] HeightsCgqqlhlCJIVVBKDOP4027-55-08 22:53:19 Test Item Value Reference Range Interpretation Comments Platelet (test code = Platelet) 241 133-450 [facility] HeightsJcruulpBTZBMABKPM0688-31-16 22:53:19 Test Item Value Reference Range Interpretation Comments MPV (test code = MPV) 9.3 7.4-10.4 [facility] HeightsCbomeotKZVENDYDUH0661-61-36 22:53:19 Test Item Value Reference Range Interpretation Comments RDW (test code = RDW) 16.5 11.5-14.5 [facility] HeightsUikyqgcTQIPEQKQIR9504-51-37 22:53:19 Test Item Value Reference Range Interpretation Comments Hct (test code = Hct) 41.0 36.0-48.0 [facility] HeightsRcttmqmWKQNBBWIYZ3716-31-60 22:53:19 Test Item Value Reference Range Interpretation Comments Hgb (test code = Hgb) 12.7 12.0-16.0 [facility] HeightsCazmfpeTOFZPOSWOC1278-59-24 22:53:19 Test Item Value Reference Range Interpretation Comments WBC (test code = WBC) 11.5 3.7-10.4 [facility] HeightsHppqjbmDVLACUDXCQ1194-12-72 22:53:19 Test Item Value Reference Range Interpretation Comments MCH (test code = MCH) 24.3 pg 27.0-31.0 [facility] HeightsXitbflrELKLICYCHG0715-27-94 22:53:19 Test Item Value Reference Range Interpretation Comments MCHC (test code = MCHC) 31.0 32.0-36.0 [facility] HeightsTactsgnMWSNCZUGBF8878-51-18 22:53:19 Test Item Value Reference Range Interpretation Comments MCV (test code = MCV) 78.4 80.0-98.0 [facility] [id number] 22:53:19 Test Item Value Reference Range Interpretation Comments FTI (test code = FTI) 2.5 [facility] [id number] 22:53:19 Test Item Value Reference Range Interpretation Comments TSH (test code = TSH) 1.540 0.360-3.740 [facility] BOTRN3560-09-03 22:53:19 Test Item Value Reference Range Interpretation Comments T3 Uptake (test code = T3 Uptake) 31 31-39 [facility]2015-10-09 22:53:19 Test Item Value Reference Range Interpretation Comments T4 (test code = T4) 8.0 4.7-13.3 [facility]2015-10-09 22:53:19 Test Item Value Reference Range Interpretation Comments Transferrin (test code = Transferrin) 256 212-360 [facility]2015-10-09 22:53:19 Test Item Value Reference Range Interpretation Comments Vitamin B12 Lvl (test code = Vitamin 703 216-7144 B12 Lvl) [facility]2015-10-09 22:53:19 Test Item Value Reference Range Interpretation Comments eGFR (test code = eGFR) 70 [facility]2015-10-09 22:53:19 Test Item Value Reference Range Interpretation Comments Glucose Lvl (test code = Glucose Lvl) 103 70-99 [facility]2015-10-09 22:53:19 Test Item Value Reference Range Interpretation Comments Albumin Lvl (test code = Albumin Lvl) 3.6 3.5-5.0 [facility]2015-10-09 22:53:19 Test Item Value Reference Range Interpretation Comments CO2 (test code = CO2) 24 24-32 [facility]2015-10-09 22:53:19 Test Item Value Reference Range Interpretation Comments Total Protein (test code = Total 7.2 6.4-8.4 Protein) [facility]2015-10-09 22:53:19 Test Item Value Reference Range Interpretation Comments Creatinine Lvl (test code = Creatinine 1.1 0.5-1.4 Lvl) [facility]2015-10-09 22:53:19 Test Item Value Reference Range Interpretation Comments BUN (test code = BUN) 14 7-22 [facility]2015-10-09 22:53:19 Test Item Value Reference Range Interpretation Comments AST (test code = AST) 12 See_Comment [Auto mated message] The system which ge nerated this result transmit arvind reference range : <=37. The reference range was not used to interpr et this result as mario l/abnormal. [facility]2015-10-09 22:53:19 Test Item Value Reference Range Interpretation Comments ALT (test code = ALT) 41 See_Comment [Auto mated message] The system which ge nerated this result transmit arvind reference range : <=65. The reference range was not used to interpr et this result as mario l/abnormal. [facility]2015-10-09 22:53:19 Test Item Value Reference Range Interpretation Comments Alk Phos (test code = Alk Phos) 100 39-136 [facility]2015-10-09 22:53:19 Test Item Value Reference Range Interpretation Comments Bili Total (test code = Bili Total) 0.2 0.2-1.3 [facility]2015-10-09 22:53:19 Test Item Value Reference Range Interpretation Comments Potassium Lvl (test code = Potassium 3.9 3.5-5.1 Lvl) [facility]2015-10-09 22:53:19 Test Item Value Reference Range Interpretation Comments Sodium Lvl (test code = Sodium Lvl) 141 135-145 [facility]2015-10-09 22:53:19 Test Item Value Reference Range Interpretation Comments Calcium Lvl (test code = Calcium Lvl) 9.0 8.5-10.5 [facility]2015-10-09 22:53:19 Test Item Value Reference Range Interpretation Comments Chloride Lvl (test code = Chloride Lvl) 109 95-109 [facility]2015-10-09 22:53:19 Test Item Value Reference Range Interpretation Comments AGAP (test code = AGAP) 11.9 10.0-20.0 [facility]2015-10-09 22:53:19 Test Item Value Reference Range Interpretation Comments A/G Ratio (test code = A/G Ratio) 1.0 0.7-1.6 [facility]2015-10-09 22:53:19 Test Item Value Reference Range Interpretation Comments B/C Ratio (test code = B/C Ratio) 13 6-25 [facility]2015-10-09 22:53:19 Test Item Value Reference Range Interpretation Comments Globulin (test code = Globulin) 3.6 2.0-4.0 [facility]2015-10-09 22:53:19 Test Item Value Reference Range Interpretation Comments Magnesium Lvl (test code = Magnesium 1.8 1.8-2.4 Lvl) [facility] HeightsZqylaraLZSOJSAJVR2788-46-12 22:53:19 Test Item Value Reference Range Interpretation Comments Segs (test code = Segs) 57.5 45.0-75.0 [facility] HeightsEnkthnaBHDNMTABBM8799-93-46 22:53:19 Test Item Value Reference Range Interpretation Comments Monocytes (test code = Monocytes) 7.6 2.0-12.0 [facility] HeightsNnyfaulCPXNCANOLG4687-62-41 22:53:19 Test Item Value Reference Range Interpretation Comments Basophils (test code = 1.0 See_Comment [Aut omated message] The Basophils) system which ge nerated this result tra nsmitted reference range : <=1.0. The reference r kat was not used to int erpret this result as normal/abnormal . [facility] HeightsBsajjkbQVRXAEREGZ2074-07-08 22:53:19 Test Item Value Reference Range Interpretation Comments Lymphocytes (test code = Lymphocytes) 32.9 20.0-40.0 [facility] HeightsFkinmowKPQQLYCRVG3364-34-62 22:53:19 Test Item Value Reference Range Interpretation Comments Eosinophils (test code = 1.0 See_Comment [A utomated message] The Eosinophils) system which ge nerated this result tra nsmitted reference range : <=4.0. The reference r kat was not used to int erpret this result as normal/abnormal . [facility] HeightsCiuydyvJNONRONUKM5493-73-29 22:53:19 Test Item Value Reference Range Interpretation Comments Lymphocytes # (test code = Lymphocytes 3.8 1.0-5.5 #) [facility] HeightsXlbevqzKHRCDGWPEV2780-62-05 22:53:19 Test Item Value Reference Range Interpretation Comments Segs-Bands # (test code = Segs-Bands #) 6.6 1.5-8.1 [facility] HeightsDmryaqzHCBBSOYRYC1400-12-12 22:53:19 Test Item Value Reference Range Interpretation Comments Eosinophils # (test code 0.1 See_Comment [A utomated message] The = Eosinophils #) system whic h generated this result tra nsmitted reference range : <=0.5. The reference r kat was not used to int erpret this result as normal/abnormal . [facility] HeightsIykvpseKXAHILQGHV2072-32-51 22:53:19 Test Item Value Reference Range Interpretation Comments Monocytes # (test code 0.9 See_Comment [Aut omated message] The = Monocytes #) system which generated this result tra nsmitted reference range : <=0.8. The reference r kat was not used to int erpret this result as normal/abnormal . [facility] HeightsCqhgdjjHNGNFCDVKE5571-57-87 22:53:19 Test Item Value Reference Range Interpretation Comments Microcyte (test code = 1+ *ABN*(06/07/15 Microcyte) 5:53 PM) [facility] HeightsYrmqntwGVXMFQSSMA9586-60-92 22:53:19 Test Item Value Reference Range Interpretation Comments Basophils # (test code 0.1 See_Comment [Aut omated message] The = Basophils #) system which generated this result tra nsmitted reference range : <=0.2. The reference r kat was not used to int erpret this result as normal/abnormal . [facility] HeightsDqrrjmcYOIRDSUGQK3068-15-30 22:53:19 Test Item Value Reference Range Interpretation Comments RBC (test code = RBC) 5.23 4.20-5.40 [facility] HeightsIhyujzkFOKEVJNCDG1794-23-23 22:53:19 Test Item Value Reference Range Interpretation Comments Platelet (test code = Platelet) 241 133-450 [facility] HeightsVjqddqgZVFBQAFJYR4637-20-74 22:53:19 Test Item Value Reference Range Interpretation Comments MPV (test code = MPV) 9.3 7.4-10.4 [facility] HeightsRuccrhxXLRPVBALIB7443-47-38 22:53:19 Test Item Value Reference Range Interpretation Comments RDW (test code = RDW) 16.5 11.5-14.5 [facility] HeightsBmwxfgzKMSRHGJYCI7214-11-86 22:53:19 Test Item Value Reference Range Interpretation Comments Hct (test code = Hct) 41.0 36.0-48.0 [facility] HeightsIxritkaPKXOZIRRWA0803-98-05 22:53:19 Test Item Value Reference Range Interpretation Comments Hgb (test code = Hgb) 12.7 12.0-16.0 [facility] HeightsVafvbsmWBOAOBYOZG5928-56-09 22:53:19 Test Item Value Reference Range Interpretation Comments WBC (test code = WBC) 11.5 3.7-10.4 [facility] HeightsShizhabFIKQNZXRVF5114-53-72 22:53:19 Test Item Value Reference Range Interpretation Comments MCH (test code = MCH) 24.3 pg 27.0-31.0 [facility] HeightsGiiirvuLQKTVHOLGR6875-69-14 22:53:19 Test Item Value Reference Range Interpretation Comments MCHC (test code = MCHC) 31.0 32.0-36.0 [facility] HeightsGylbqkzVIURMXOLRI8714-47-87 22:53:19 Test Item Value Reference Range Interpretation Comments MCV (test code = MCV) 78.4 80.0-98.0 [facility]2015-10-09 22:53:19 Test Item Value Reference Range Interpretation Comments FTI (test code = FTI) 2.5 [facility]2015-10-09 22:53:19 Test Item Value Reference Range Interpretation Comments TSH (test code = TSH) 1.540 0.360-3.740 [facility]2015-10-09 22:53:19 Test Item Value Reference Range Interpretation Comments T3 Uptake (test code = T3 Uptake) 31 31-39 [facility]2015-10-09 22:53:19 Test Item Value Reference Range Interpretation Comments T4 (test code = T4) 8.0 4.7-13.3 [facility]2015-10-09 22:53:19 Test Item Value Reference Range Interpretation Comments Transferrin (test code = Transferrin) 256 212-360 [facility]2015-10-09 22:53:19 Test Item Value Reference Range Interpretation Comments Vitamin B12 Lvl (test code = Vitamin [phone] B12 Lvl) [facility]2015-10-09 22:53:19 Test Item Value Reference Range Interpretation Comments eGFR (test code = eGFR) 70 [facility]2015-10-09 22:53:19 Test Item Value Reference Range Interpretation Comments Glucose Lvl (test code = Glucose Lvl) 103 70-99 [facility]2015-10-09 22:53:19 Test Item Value Reference Range Interpretation Comments Albumin Lvl (test code = Albumin Lvl) 3.6 3.5-5.0 [facility]2015-10-09 22:53:19 Test Item Value Reference Range Interpretation Comments CO2 (test code = CO2) 24 24-32 [facility]2015-10-09 22:53:19 Test Item Value Reference Range Interpretation Comments Total Protein (test code = Total 7.2 6.4-8.4 Protein) [facility]2015-10-09 22:53:19 Test Item Value Reference Range Interpretation Comments Creatinine Lvl (test code = Creatinine 1.1 0.5-1.4 Lvl) [facility]2015-10-09 22:53:19 Test Item Value Reference Range Interpretation Comments BUN (test code = BUN) 14 7-22 [facility]2015-10-09 22:53:19 Test Item Value Reference Range Interpretation Comments AST (test code = AST) 12 See_Comment [Auto mated message] The system which ge nerated this result transmit arvind reference range : <=37. The reference range was not used to interpr et this result as mario l/abnormal. [facility]2015-10-09 22:53:19 Test Item Value Reference Range Interpretation Comments ALT (test code = ALT) 41 See_Comment [Auto mated message] The system which ge nerated this result transmit arvind reference range : <=65. The reference range was not used to interpr et this result as mario l/abnormal. [facility]2015-10-09 22:53:19 Test Item Value Reference Range Interpretation Comments Alk Phos (test code = Alk Phos) 100 39-136 [facility]2015-10-09 22:53:19 Test Item Value Reference Range Interpretation Comments Bili Total (test code = Bili Total) 0.2 0.2-1.3 [facility]2015-10-09 22:53:19 Test Item Value Reference Range Interpretation Comments Potassium Lvl (test code = Potassium 3.9 3.5-5.1 Lvl) [facility]2015-10-09 22:53:19 Test Item Value Reference Range Interpretation Comments Sodium Lvl (test code = Sodium Lvl) 141 135-145 [facility]2015-10-09 22:53:19 Test Item Value Reference Range Interpretation Comments Calcium Lvl (test code = Calcium Lvl) 9.0 8.5-10.5 [facility]2015-10-09 22:53:19 Test Item Value Reference Range Interpretation Comments Chloride Lvl (test code = Chloride Lvl) 109 95-109 [facility]2015-10-09 22:53:19 Test Item Value Reference Range Interpretation Comments AGAP (test code = AGAP) 11.9 10.0-20.0 [facility]2015-10-09 22:53:19 Test Item Value Reference Range Interpretation Comments A/G Ratio (test code = A/G Ratio) 1.0 0.7-1.6 [facility]2015-10-09 22:53:19 Test Item Value Reference Range Interpretation Comments Transferrin (test code = Transferrin) 256 212-360 [facility]2015-10-09 22:53:19 Test Item Value Reference Range Interpretation Comments Vitamin B12 Lvl (test code = Vitamin [phone] B12 Lvl) [facility]2015-10-09 22:53:19 Test Item Value Reference Range Interpretation Comments eGFR (test code = eGFR) 70 [facility]2015-10-09 22:53:19 Test Item Value Reference Range Interpretation Comments Glucose Lvl (test code = Glucose Lvl) 103 70-99 [facility]2015-10-09 22:53:19 Test Item Value Reference Range Interpretation Comments Albumin Lvl (test code = Albumin Lvl) 3.6 3.5-5.0 [facility]2015-10-09 22:53:19 Test Item Value Reference Range Interpretation Comments CO2 (test code = CO2) 24 24-32 [facility]2015-10-09 22:53:19 Test Item Value Reference Range Interpretation Comments Total Protein (test code = Total 7.2 6.4-8.4 Protein) [facility]2015-10-09 22:53:19 Test Item Value Reference Range Interpretation Comments Creatinine Lvl (test code = Creatinine 1.1 0.5-1.4 Lvl) [facility]2015-10-09 22:53:19 Test Item Value Reference Range Interpretation Comments BUN (test code = BUN) 14 7-22 [facility]2015-10-09 22:53:19 Test Item Value Reference Range Interpretation Comments AST (test code = AST) 12 See_Comment [Auto mated message] The system which ge nerated this result transmit arvind reference range : <=37. The reference range was not used to interpr et this result as mario l/abnormal. [facility]2015-10-09 22:53:19 Test Item Value Reference Range Interpretation Comments ALT (test code = ALT) 41 See_Comment [Auto mated message] The system which ge nerated this result transmit arvind reference range : <=65. The reference range was not used to interpr et this result as mario l/abnormal. [facility]2015-10-09 22:53:19 Test Item Value Reference Range Interpretation Comments Alk Phos (test code = Alk Phos) 100 39-136 [facility]2015-10-09 22:53:19 Test Item Value Reference Range Interpretation Comments Bili Total (test code = Bili Total) 0.2 0.2-1.3 [facility]2015-10-09 22:53:19 Test Item Value Reference Range Interpretation Comments Potassium Lvl (test code = Potassium 3.9 3.5-5.1 Lvl) [facility]2015-10-09 22:53:19 Test Item Value Reference Range Interpretation Comments Sodium Lvl (test code = Sodium Lvl) 141 135-145 [facility]2015-10-09 22:53:19 Test Item Value Reference Range Interpretation Comments Calcium Lvl (test code = Calcium Lvl) 9.0 8.5-10.5 [facility]2015-10-09 22:53:19 Test Item Value Reference Range Interpretation Comments Chloride Lvl (test code = Chloride Lvl) 109 95-109 [facility]2015-10-09 22:53:19 Test Item Value Reference Range Interpretation Comments AGAP (test code = AGAP) 11.9 10.0-20.0 [facility]2015-10-09 22:53:19 Test Item Value Reference Range Interpretation Comments A/G Ratio (test code = A/G Ratio) 1.0 0.7-1.6 [facility]2015-10-09 22:53:19 Test Item Value Reference Range Interpretation Comments B/C Ratio (test code = B/C Ratio) 13 6-25 [facility]2015-10-09 22:53:19 Test Item Value Reference Range Interpretation Comments Globulin (test code = Globulin) 3.6 2.0-4.0 [facility]2015-10-09 22:53:19 Test Item Value Reference Range Interpretation Comments Magnesium Lvl (test code = Magnesium 1.8 1.8-2.4 Lvl) [id number] 22:53:19 Test Item Value Reference Range Interpretation Comments Segs (test code = Segs) 57.5 45.0-75.0 [facility] HeightsEmhqskoMJVTNMNKBD2619-12-11 22:53:19 Test Item Value Reference Range Interpretation Comments Monocytes (test code = Monocytes) 7.6 2.0-12.0 [facility] [id number] 22:53:19 Test Item Value Reference Range Interpretation Comments Basophils (test code = 1.0 See_Comment [Aut omated message] The Basophils) system which ge nerated this result tra nsmitted reference range : <=1.0. The reference r kat was not used to int erpret this result as normal/abnormal . [facility] [id number] 22:53:19 Test Item Value Reference Range Interpretation Comments Lymphocytes (test code = Lymphocytes) 32.9 20.0-40.0 [facility] [id number] 22:53:19 Test Item Value Reference Range Interpretation Comments Eosinophils (test code = 1.0 See_Comment [A utomated message] The Eosinophils) system which ge nerated this result tra nsmitted reference range : <=4.0. The reference r kat was not used to int erpret this result as normal/abnormal . [facility] [id number] 22:53:19 Test Item Value Reference Range Interpretation Comments Lymphocytes # (test code = Lymphocytes 3.8 1.0-5.5 #) [facility] [id number] 22:53:19 Test Item Value Reference Range Interpretation Comments Segs-Bands # (test code = Segs-Bands #) 6.6 1.5-8.1 [facility] [id number] 22:53:19 Test Item Value Reference Range Interpretation Comments Eosinophils # (test code 0.1 See_Comment [A utomated message] The = Eosinophils #) system whic h generated this result tra nsmitted reference range : <=0.5. The reference r kat was not used to int erpret this result as normal/abnormal . [facility] [id number] 22:53:19 Test Item Value Reference Range Interpretation Comments Monocytes # (test code 0.9 See_Comment [Aut omated message] The = Monocytes #) system which generated this result tra nsmitted reference range : <=0.8. The reference r kat was not used to int erpret this result as normal/abnormal . [facility] [id number] 22:53:19 Test Item Value Reference Range Interpretation Comments Microcyte (test code = 1+ *ABN*(06/07/15 Microcyte) 5:53 PM) [facility] [id number] 22:53:19 Test Item Value Reference Range Interpretation Comments Basophils # (test code 0.1 See_Comment [Aut omated message] The = Basophils #) system which generated this result tra nsmitted reference range : <=0.2. The reference r kat was not used to int erpret this result as normal/abnormal . [facility] HeightsQkwhsykDRBTUEHYXX6417-18-01 22:53:19 Test Item Value Reference Range Interpretation Comments RBC (test code = RBC) 5.23 4.20-5.40 [facility] HeightsMtftbxlBTELGLITES8007-12-53 22:53:19 Test Item Value Reference Range Interpretation Comments Platelet (test code = Platelet) 241 133-450 [facility] [id number] 22:53:19 Test Item Value Reference Range Interpretation Comments MPV (test code = MPV) 9.3 7.4-10.4 [facility] [id number] 22:53:19 Test Item Value Reference Range Interpretation Comments RDW (test code = RDW) 16.5 11.5-14.5 [facility] [id number] 22:53:19 Test Item Value Reference Range Interpretation Comments Hct (test code = Hct) 41.0 36.0-48.0 [facility] [id number] 22:53:19 Test Item Value Reference Range Interpretation Comments Hgb (test code = Hgb) 12.7 12.0-16.0 [facility] [id number] 22:53:19 Test Item Value Reference Range Interpretation Comments WBC (test code = WBC) 11.5 3.7-10.4 [facility] [id number] 22:53:19 Test Item Value Reference Range Interpretation Comments MCH (test code = MCH) 24.3 pg 27.0-31.0 [facility] He[id number] 22:53:19 Test Item Value Reference Range Interpretation Comments MCHC (test code = MCHC) 31.0 32.0-36.0 [facility] [id number] 22:53:19 Test Item Value Reference Range Interpretation Comments MCV (test code = MCV) 78.4 80.0-98.0 [id number] 22:53:19 Test Item Value Reference Range Interpretation Comments FTI (test code = FTI) 2.5 [facility] [id number] 22:53:19 Test Item Value Reference Range Interpretation Comments TSH (test code = TSH) 1.540 0.360-3.740 [facility] [id number] 22:53:19 Test Item Value Reference Range Interpretation Comments T3 Uptake (test code = T3 Uptake) 31 31-39 [facility] [id number] 22:53:19 Test Item Value Reference Range Interpretation Comments T4 (test code = T4) 8.0 4.7-13.3 [facility]
[2023-01-21 16:17] LABS: Specific Gravity 1.016 (1.005-1.030)
[2023-01-21 16:20] LABS: Specific Gravity 1.016 (1.005-1.030); Urine Bacteria <20 /HPF (<20); Urine Bilirubin NEGATIVE (Negative); Urine Blood 2+ (Negative); Urine Clarity Clear (Clear); Urine Color Light-Yellow (Yellow); Urine Glucose NEGATIVE (Negative); Urine Mucus Slight /HPF (None Seen); Urine Protein NEGATIVE (Negative); Urine RBC <5 /HPF (None Seen); Urine Urobilinogen Normal (Normal); Urine pH 6.5 (5.0-7.0)
[2023-01-21 16:47] LABS: Potassium 4.3 mEq/L (3.5-5.1)
--- NOTE | 2023-01-21 16:59 | RAD REPORT ---
EXAM DESCRIPTION: US - Transvaginal Study Probe - 01/21/2023 4:49 pm CLINICAL HISTORY: Pelvic pain COMPARISON: January 16, 2023 CT FINDINGS: The uterus measures 8 x 4 x 4 cm. A fibroid is not seen. The endometrial stripe measures 3 millimeters Right ovary not seen secondary to overlying bowel gas. 2.8 centimeter left ovarian cyst. Normal blood flow to the left ovary. The right and left adnexa unremarkable No significant free fluid is seen. IMPRESSION: 2.8 centimeter left ovarian cyst without significant free fluid
--- NOTE | 2023-01-21 17:00 | ER ---
Nurse's Notes [facility] Name: Kyra Quispe Age: 32 yrs Sex: Female : 1990 Arrival Date: 01/21/2023 Time: 15:15 Bed 14 Private MD: Diagnosis: Other ovarian cysts Presentation: 01/21 15:26 Chief complaint: Patient states: Left lower abdominal pain, "i have a cyst". Vaginal nj1 bleeding, onset yesterday "lots of it", along with nausea and vomiting. Coronavirus screen: Vaccine status: Patient reports receiving the 2nd dose of the covid vaccine. Ebola Screen: No symptoms or risks identified at this time. Initial Sepsis Screen: Does the patient meet any 2 criteria? No. Patient's initial sepsis screen is negative. Does the patient have a suspected source of infection? No. Patient's initial sepsis screen is negative. Risk Assessment: Do you want to hurt yourself or someone else? Patient reports no desire to harm self or others. Onset of symptoms was January 20, 2023. 15:26 Method Of Arrival: Ambulatory nj 15:26 Acuity: MONE 3 nj1 Historical: - Allergies: 15:30 Latex, Natural Rubber; nj1 15:30 Tessalon Perles; nj1 - PMHx: 15:30 Anxiety; diabetes mellitus; Ovarian cyst; Seizure; nj1 - PSHx: 15:30 Cholecystectomy; gastric sleeve; knee; nj1 - Immunization history:: Client reports receiving the 2nd dose of the Covid vaccine. - Social history:: Smoking status: Patient denies any tobacco usage or history of. Screenin:32 [facility] ED Fall Risk Assessment (Adult) History of falling in the last 3 months, vg1 including since admission No falls in past 3 months (0 pts) Confusion or Disorientation No (0 pts) Intoxicated or Sedated No (0 pts) Impaired Gait No (0 pts) Mobility Assist Device Used No (0 pt) Altered Elimination No (0 pt) Score/Fall Risk Level 0 - 2 = Low Risk Oriented to surroundings, Maintained a safe environment, Educated pt \\T\\ family on fall prevention, incl call for assistance when getting out of bed, Assessed \\T\\ reinforced patient's understanding of fall precautions. Abuse screen: Denies threats or abuse. Denies injuries from another. Nutritional screening: No deficits noted. Tuberculosis screening: No symptoms or risk factors identified. Assessment: 15:32 General: Appears comfortable, Behavior is cooperative. Pain: Complains of pain in right vg1 lower quadrant and left lower quadrant Pain currently is 10 out of 10 on a pain scale. Pain began 4-5 days ago. Neuro: Level of Consciousness is awake, alert, obeys commands, Oriented to person, place, time, situation. Cardiovascular: Patient's skin is warm and dry. Respiratory: Airway is patent Respiratory effort is even, unlabored. GI: Abdomen is obese, Bowel sounds present X 4 quads. Abd is soft and non tender X 4 quads. Reports nausea, vomiting. : Urine is clear, Reports vaginal bleeding that is bright red, with clots, heavy flow "filling up pads fast". Derm: Skin is pink, warm \\T\\ dry. Musculoskeletal: Circulation, motion, and sensation intact. 16:58 Reassessment: Patient appears in no apparent distress at this time. No changes from [facility] previously documented assessment. Patient and/or family updated on plan of care and expected duration. Pain level reassessed. Patient is alert, oriented x 3, equal unlabored respirations, skin warm/dry/pink. Vital Signs: 15:26 BP 138 / 93; Pulse 62; Resp 18; Temp 98.4(O); Pulse Ox 100% on R/A; Weight 141.97 kg; nj1 Height 5 ft. 7 in. ; Pain 10/10; 15:57 BP 131 / 83; Pulse 60; Resp 16; Pulse Ox 100% on R/A; vg1 16:58 BP 133 / 87; Pulse 60; Resp 16; Pulse Ox 100% ; vg1 17:24 BP 119 / 85; Pulse 60; Resp 16; Pulse Ox 99% on R/A; vg1 15:26 Body Mass Index 49.02 (141.97 kg, 170.18 cm) nj1 15:26 Pain Scale: Adult [facility] ED Course: 15:17 Patient arrived in ED. rg4 15:17 Josephine Forrester FNP-C is PHCP. kb 15:17 Shawn Emerson DO is Attending Physician. kb 15:30 Triage completed. nj1 15:31 Arm band placed on. nj1 15:32 Cata Kirby, RN is Primary Nurse. 1 15:32 Patient has correct armband on for positive identification. Bed in low position. Call vg1 light in reach. Side rails up X 1. 15:45 Initial lab(s) drawn, by me, sent to lab. Inserted saline lock: 20 gauge in right vg1 antecubital area, using aseptic technique. Blood collected. 16:51 US Transvaginal Study (Probe) In Process Unspecified. EDTX 17:00 Phoebe Keller MD is Referral Physician. kb 17:25 No provider procedures requiring assistance completed. IV discontinued, intact, vg1 bleeding controlled, No redness/swelling at site. Pressure dressing applied. Administered Medications: 15:46 Drug: NS 0.9% IV 1000 ml Route: IV; Rate: 1000 ml; Site: right antecubital; vg1 17:25 Follow up: IV Status: Completed infusion; IV Intake: 1000ml vg1 Medication: 15:32 VIS not applicable for this client. vg1 Intake: 17:25 IV: 1000ml; Total: 1000ml. vg1 Outcome: 17:00 Discharge ordered by . kb 17:25 Discharged to home ambulatory. vg1 17:25 Condition: good 17:25 Discharge instructions given to patient, Instructed on discharge instructions, follow up and referral plans. Demonstrated understanding of instructions, follow-up care. 17:25 Patient left the ED. vg1 Signatures: Dispatcher [employer] EDTX Josephine Forrester, COMPRESSOR TECHNICIAN-C COMPRESSOR TECHNICIAN-Zaida Ryder rg4 Cata Kirby, RN RN vg1 Edna George RN RN nj1 Corrections: (The following items were deleted from the chart) 15:58 15:32 GI: Abdomen is obese, Bowel sounds present X 4 quads. Abd is soft and non tender vg1 X 4 quads. vg1
--- NOTE | 2023-01-21 17:00 | EDPHYS ---
Physician Documentation [facility] Name: Kyra Quispe Age: 32 yrs Sex: Female : 1990 Arrival Date: 01/21/2023 Time: 15:15 Bed 14 Private MD: ED Physician Shawn Emerson HPI: 01/21 17:06 This 32 yrs old Female presents to ER via Ambulatory with complaints of Abdominal Pain, kb Vaginal Bleeding, Dizziness. 17:06 The patient presents with abdominal pain in the left lower quadrant. Onset: The kb symptoms/episode began/occurred long standing. The symptoms do not radiate. Associated signs and symptoms: Pertinent positives: nausea and vomiting, vaginal bleeding, Pertinent negatives: fever. The symptoms are described as constant. Modifying factors: The symptoms are alleviated by nothing, the symptoms are aggravated by nothing. Severity of pain: At its worst the pain was moderate in the emergency department the pain is unchanged. The patient has experienced similar episodes in the past. The patient has been recently seen at the [facility] Emergency Department. Pt reports she has a left ovarian cyst that has been causing pain. Pt has been seen here for this multiple times and educated to follow up with [employer]. Pt states she did follow up, but was told she needed to go to [facility]. . Historical: - Allergies: 15:30 Latex, Natural Rubber; nj1 15:30 Tessalon Perles; nj1 - PMHx: 15:30 Anxiety; diabetes mellitus; Ovarian cyst; Seizure; nj1 - PSHx: 15:30 Cholecystectomy; gastric sleeve; knee; nj1 - Immunization history:: Client reports receiving the 2nd dose of the Covid vaccine. - Social history:: Smoking status: Patient denies any tobacco usage or history of. ROS: 17:05 Constitutional: Negative for fever, chills, and weight loss. kb 17:05 Abdomen/GI: Positive for abdominal pain, nausea and vomiting, of the left lower quadrant. 17:05 : Positive for vaginal bleeding. 17:05 All other systems are negative. Exam: 17:05 Constitutional: This is a well developed, well nourished patient who is awake, alert, kb and in no acute distress. Head/Face: Normocephalic, atraumatic. ENT: Moist Mucous membranes Cardiovascular: Regular rate and rhythm with a normal S1 and S2. No gallops, murmurs, or rubs. No pulse deficits. Respiratory: Respirations even and unlabored. No increased work of breathing. Talking in full sentences Skin: Warm, dry with normal turgor. Normal color. MS/ Extremity: Pulses equal, no cyanosis. Neurovascular intact. Full, normal range of motion. Neuro: Awake and alert, GCS 15, oriented to person, place, time, and situation. Moves all extremities. Normal gait. 17:05 Abdomen/GI: Inspection: abdomen appears normal, Bowel sounds: normal, Palpation: soft, in all quadrants, mild abdominal tenderness, in the left lower quadrant. Vital Signs: 15:26 BP 138 / 93; Pulse 62; Resp 18; Temp 98.4(O); Pulse Ox 100% on R/A; Weight 141.97 kg; nj1 Height 5 ft. 7 in. ; Pain 10/10; 15:57 BP 131 / 83; Pulse 60; Resp 16; Pulse Ox 100% on R/A; vg1 16:58 BP 133 / 87; Pulse 60; Resp 16; Pulse Ox 100% ; vg1 17:24 BP 119 / 85; Pulse 60; Resp 16; Pulse Ox 99% on R/A; vg1 15:26 Body Mass Index 49.02 (141.97 kg, 170.18 cm) nj1 15:26 Pain Scale: Adult nj1 MDM: 15:18 Patient medically screened. kb 17:05 Differential diagnosis: Ovarian Torsion, urinary tract infection, ovarian cyst. Data kb reviewed: vital signs, nurses notes. Counseling: I had a detailed discussion with the patient and/or guardian regarding: the historical points, exam findings, and any diagnostic results supporting the discharge/admit diagnosis, lab results, radiology results, the need for outpatient follow up, an OB/Gyne specialist, to return to the emergency department if symptoms worsen or persist or if there are any questions or concerns that arise at home. 01/21 15:23 Order name: Basic Metabolic Panel; Complete Time: 16:53 kb 01/21 15:23 Order name: CBC with Diff; Complete Time: 16:21 kb 01/21 15:23 Order name: Test, Urine; Complete Time: 16:21 kb 01/21 15:23 Order name: Urinalysis w/ reflexes; Complete Time: 16:21 kb 01/21 15:23 Order name: US Transvaginal Study (Probe); Complete Time: 16:59 kb 01/21 15:23 Order name: IV Saline Lock; Complete Time: 15:53 kb 01/21 15:23 Order name: Labs collected and sent; Complete Time: 15:53 kb 01/21 15:23 Order name: NPO; Complete Time: 15:32 kb Administered Medications: 15:46 Drug: NS 0.9% IV 1000 ml Route: IV; Rate: 1000 ml; Site: right antecubital; vg1 17:25 Follow up: IV Status: Completed infusion; IV Intake: 1000ml vg1 Disposition: 17:12 Co-signature as Attending Physician, Shawn Emerson DO I was immediately available on-site ms3 in the Emergency Department for consultation in the care of the patient. Disposition Summary: 01/21/23 17:00 Discharge Ordered Location: Home kb Condition: Stable kb Diagnosis - Other ovarian cysts kb Followup: kb - With: Emergency Department - When: As needed - Reason: Worsening of condition Followup: kb - With: Private Physician - When: 2 - 3 days - Reason: Recheck today's complaints, Continuance of care, Re-evaluation by your physician Followup: kb - With: Phoebe Keller MD - When: 2 - 3 days - Reason: Recheck today's complaints Discharge Instructions: - Discharge Summary Sheet kb - Ovarian Cyst, [id number] kb Forms: - Medication Reconciliation Form kb - Thank You Letter kb - Antibiotic Education kb - Prescription Opioid Use kb Signatures: Dispatcher [employer] Josephine Valle, ASSISTANT BRANCH OPERATIONS MANAGER-C ASSISTANT BRANCH OPERATIONS MANAGER-Cata Ryder, RN RN vg1 Shawn Emerson DO DO ms3 Edna George, RN RN nj1 Corrections: (The following items were deleted from the chart) 17:05 17:05 Abdomen/GI: Positive for abdominal pain, of the left lower quadrant, kb kb
[2023-01-21 17:35] VITALS: TEMP 98.4
[2023-01-21 17:53] VITALS: BP 119/85; O2SAT 99
== END 2023-01-21 17:25 | disposition home or self-care (01) ==
LOC: ER 15:15
DX: N83.292 Other ovarian cyst, left side (principal); R11.2 Nausea with vomiting, unspecified; E11.9 Type 2 diabetes mellitus without complications; Z88.8 Allergy status to other drugs, medicaments and biological substances; Z91.040 Latex allergy status; Z91.048 Other nonmedicinal substance allergy status
CPT/HCPCS: 96361; 85025; 81001; 80048; 36415; 81025; 76830; 96360; 99284; J7030

== ENCOUNTER 2023-02-24 18:27 | Emergency (ER) | payer OTHER ==
--- OUTSIDE RECORDS SUMMARY | 2023-02-24 19:27 | XMS REPORT | Continuity of Care Document ---
:1990 Author Organization [facility] t Address [address] [place] [address] Care Team Providers Name Role Phone FAWAD ALDRICH Primary Care Physician Unavailable RADIOLOGY Attending Clinician Unavailable Oxana Chan Attending Clinician FAWAD ALDRICH Attending Clinician Unavailable Fawad Cope Attending Clinician DOUG HAMMER Attending Clinician Unavailable Doug Gamble Attending Clinician PAM COLE Attending Clinician Unavailable Anahi Hoang MD Attending Clinician KARINA_SWHANBWH_Diggs_R Attending Clinician Unavailable DA CHAPIN Attending Clinician Unavailable JENNY FLETCHER Attending Clinician Unavailable BRIE GALVAN Attending Clinician Unavailable Kaycee Longo Attending Clinician [phone] LEYLA GALVAN Attending Clinician Unavailable Thania Bolanos Attending Clinician THANIA BOLANOS Attending Clinician Unavailable Sukhwinder Thomas Attending Clinician SUKHWINDER THOMAS Attending Clinician Unavailable AMBREEN_FARHANA Attending Clinician Unavailable MEHREEN BRADFORDEL A Attending Clinician Unavailable JANENE MASSEY Attending Clinician [...] Clinician Unavailable Domingo Miller Attending Clinician DOMINGO MLILER Attending Clinician Unavailable JERZY BRADFORD Attending Clinician [...] Attending Clinician Nato Mello Attending Clinician [phone] Tommy Del Toro Attending Clinician Sam Mcclendon Attending Clinician DOUG HAMMER Admitting Clinician Unavailable _SWHANBW_Diggs_R Admitting Clinician Unavailable ROSA M Admitting Clinician Unavailable González Flannery Admitting Clinician Tommy Del Toro Admitting Clinician Payers Payer Name Policy Type Policy Number Effective Date Expiration Date Davie CONTEH [place] [id number] 2020 2021 [employer] OON 00:00:00 00:00:00 EXCEPT [facility] [id number] [facility] [id number] 2022 00:00:00 [employer] [id number] 2022 OUT OF NETWORK 00:00:00 [id number] [facility] [id number] 2021 PROGRAM 00:00:00 [place] [id number] 2021 [facility] 00:00:00 PROGRAM (MEDICAID) [facility] [id number] 2020 00:00:00 Problems Condition Condition Condition Status Onset Resolution Last Treating Co mments Source Name Details Category Date Date Treatment Clinician Date FACE/RT FACE/RT Diagnosis Active 2022-03-19 Memoria SIDE SIDE 03-18 13:51:00 l NUMBNESS NUMBNESS 00:00: Garrett n Active 00 03/18/2022 [facility] FEVER, FEVER, Diagnosis Active 2022-03-13 Me moria BODY PAIN BODY PAIN 03-13 21:46:00 l Active 00:00: Dav 03/13/[address] [place] [address] Hypertensi Hypertensi Problem Active P rivia ve [...] disorder 00 Medica l Branch SENT BY SENT BY Diagnosis Active 2021-03-[address] Active 01-20 15:44:00 l 01/20/2021 00:00: Garrett lynch [address] Chronic Chronic Disease Active Univers left hip left hip 03-17 ity of pain pain 00:00: [address] INTRACTABL INTRACTAB Diagnosis Active 2015-10-17 Memoria E VOMITING LE 09-02 16:18:00 l S/P VOMITING 00:00: Dav GASTRIC S/P 00 SLEEVE GASTRIC SLEEVE Active 09/02/2015 [facility] VOMITTING Diagnosis Active 2015-09-17 Memoria VOMITTING 09-02 18:24:00 l Active 00:00: [place] 09/02/2015 00 [facility] ABDOMINAL ABDOMINAL Diagnosis Active 2014-082015-08-26 Memoria PAIN PAIN 10-27 11:29:00 l Active 00:00: Dav 08/26/2015 00 [facility] UNK UNK Diagnosis Active 2014-082015-08-06 Mem oria Active 10-06 12:24:00 l 08/05/2015 00:00: Garrett lynch 00 [facility] E66.01 E66.01 Diagnosis Active 2014-082015-08-16 Me moria Active 10-06 14:56:00 l 08/05/2015 00:00: Garrett lynch 00 [facility] MORBID MORBID Diagnosis Active 2014-082015-06-24 Co moria OBESITY OBESITY 0-23 15:17:00 l Active 00:00: [place] 06/21/2015 00 [facility] K21.9; K21.9; Diagnosis Active 2014-082015-06-24 Me moria GASTRO-ESO GASTRO-ESO 0- 09:25:00 l PHAGEAL PHAGEAL 00:00: Dav REFLUX REFLUX 00 DISEASE DISEASE Active 06/19/2015 [facility] K21.0 K21.0 Diagnosis Active 2015-06-10 Me moria Active 05-07 06:23:00 l 05/07/2015 00:00: Garrett lynch 00 [facility] Bipolar Bipolar Problem Resolve 2015-09-22 M emoria (qualifier (qualifier d 02:57:40 l value) value) Dav Resolved Problem 09/22/2015 [facility] Obesity Obesity Problem Resolve 2015-09-22 M emoria (disorder) (disorder) d 02:57:40 l Resolved [place] Problem 09/22/2015 [facility] Acid Acid Problem Active 2015-09-22 Memor ia reflux reflux 02:57:40 l (finding) (finding) Herm kailash Active Problem 09/22/2015 [facility] Pain in Pain in Problem Active 2022-03-21 Me moria lower limb lower limb 21:09:41 l (finding) (finding) Herm kailash Active Problem 03/21/2022 [facility] GASTRO-ESO GASTRO-ES Diagnosis Active 2015-06-10 Memoria PHAGEAL OPHAGEAL 06:23:00 l REFLUX REFLUX Dav DISEASE DISEASE WITH ES WITH ES Active [facility] MORBID MORBID Diagnosis Active 2015-08-16 Me moria (SEVERE) (SEVERE) 14:56:00 l OBESITY OBESITY [place] DUE TO DUE TO EXCESS CA EXCESS CA Active [facility] VOMITING, Diagnosis Active 2015-10-17 Memoria UNSPECIFIE VOMITING, 16:18:00 l D UNSPECIFIE Garrett n D Active [facility] History of Past Illness Condition Condition Condition Status Onset Resolution Last Treating Co mments Source Name Details Category Date Date Treatment Clinician Date 2018-nCoV 2018-nCoV Problem 2022-03-21 2022-03-21 Memoria acute acute 03-19 21:09:41 21:09:41 l respirator respirator 06:21: He rmann y disease y disease 00 03/19/2022 03/21/2022 [facility] Paresthesi Paresthes Problem 2022-03-21 2022-03-21 Memoria a of skin ia of skin 03-19 21:09:41 21:09:41 l 06:21: Garrett lynch 2 00 03/21/2022 [facility] Hypokalemi Hypokalem Problem 2022-03-21 2022-03-21 Memoria a ia 03-19 21:09:41 21:09:41 l 03/19/2022 06:21: Garrett lynch 03/21/2022 00 [facility] Discharge Discharge Problem 2014-082015-08-29 2015-08-29 Memoria Diagnosis: Diagnosis: 10-27 03:22:03 03:22:03 l Abdominal Abdominal 06:00: Rhina linder pain pain 00 08/26/2015 08/29/2015 [facility] Allergies, Adverse Reactions, Alerts Allergy Allergy Status [...] substanc e Latex Latex Active Memoria oj Demarco Tessalon Tessalon Active Memori a Alexi Demarco Social History Social Habit Start Date Stop Date Quantity Comments Source [facility] Tobacco use and 2023-01-19 2023-01-19 Smokeless Universit y of exposure 00:00:00 00:00:00 tobacco non-user [facility] [place] History of Social 2022-11-03 2022-11-[address] function 00:00:00 00:00:00 Hospital Exposure to 2022-08-16 2022-08-26 Not sure [facility] SARS-CoV-2 (event) 00:00:00 13:07:00 [facility] Alcohol intake 2022-06-11 2022-06-11 Current [facility] 00:00:00 00:00:00 non-drinker of Hospital alcohol (finding) Social History 2015-08-15 2015-08-15 [facility] 18:23:25 18:23:25 Sex Ass[birth year] At [birth year] [facility] 00:00[facility] 00:00:00 Hospital Smoking Status Start Date Stop Date Source Tobacco smoking consumption [facility] Never smoked tobacco [facility] Medications Ordered Filled Start Stop Current Ordering Indication Dosage Frequency Signature Comments Components Source Medication Medication Date Date Medication? Clinician (SIG) Name Name amitriptyli 2023-0 2023- No 100mg Take 1 Un jo ne 100 mg 5-23 05-23 tablet by ity of tablet 10:59: 00:00 mouth. [place] 19 :00 Medical Branch amitriptyli 2023-0 2023- No 100mg Take 1 Un jo ne 100 mg 5-23 05-23 tablet by ity of tablet 10:59: 00:00 mouth. [place] 19 :00 Medical Branch busPIRone 2023-0 2023- No 10mg Take 1 Unive rs 10 mg 5-23 05-23 tablet by ity of tablet 10:59: 00:00 mouth. [place] 16 :00 Medical Branch buPROPion 2023-0 2023- No 300mg Take 1 Univ ers XL 300 mg 5-23 05-23 tablet by ity of 24 hr 10:59: 00:00 mouth. [place] tablet 16 :00 Medical Branch busPIRone 2023-0 2023- No 10mg Take 1 Unive rs 10 mg 5-23 05-23 tablet by ity of tablet 10:59: 00:00 mouth. [place] 16 :00 Medical Branch buPROPion 2023-0 2023- No 300mg Take 1 Univ ers XL 300 mg 5-23 05-23 tablet by ity of 24 hr 10:59: 00:00 mouth. [place] tablet 16 :00 Medical Branch furosemide 3-0 2023- No 40mg Take 1 Univ ers 40 mg 5-23 05-23 tablet by ity of tablet 10:59: 00:00 mouth. [place] 09 :00 Medical Branch furosemide 2023-0 2023- No 40mg Take 1 Univ ers 40 mg 5-23 05-23 tablet by ity of tablet 10:59: 00:00 mouth. [place] 09 :00 Medical Branch insulin 3-0 2023- No inject Univers aspart 5-23 05-23 under the ity of RAPID 100 10:59: 00:00 skin. Dot unit/mL 06 :00 Medical injection Branch insulin 2023-0 2023- No inject Univers aspart 5-23 05-23 under the ity of RAPID 100 10:59: 00:00 skin. [place] unit/mL 06 :00 Medical injection Branch insulin 2023-0 2023- No inject Univers glargine 5-23 05-23 under the ity o f 100 unit/mL 10:59: 00:00 skin. [place] injection 03 :00 Medical Branch insulin 3-0 3- No inject Univers glargine -19 01-23 under the ity o f 100 unit/mL 10:59: [facility] Branch metFORMIN 3-0 3- No 850mg Take 1 Univ ers 850 mg 5-23 05-23 tablet by ity of tablet 10:58: 00:00 mouth. [place] 57 :00 [facility] Branch metFORMIN 3-0 2022- No 850mg Take 1 Univ ers 850 mg 5-23 05-23 tablet by ity of tablet 10:58: 00:00 mouth. [place] 57 :00 [facility] Branch SERTraline 2022-0 Yes 882 50mg Take 1 Unive rs (ZOLOFT) 50 5-23 tablet by ity of mg tablet 10:31: mouth in [place] [address] the Medical morning. Branch Indication s: depression [...] tablet by ity of tablet 10:31: mouth [place] [id number] every 8 Medical (eight) Branch hours as needed for Anxiety. Insulin 2022-0 Yes 25U inject 25 Unive rs NPH-Regular 5-23 Units ity of Human Rec 10:31: under the [place] as (NOVOLIN 26 skin Medical 70-30 before Branch FLEXPEN meals and U-100) 100 at unit/mL bedtime. (70-30) injection SERTraline 2022-0 Yes 882 50mg Take 1 Unive rs (ZOLOFT) 50 5-23 tablet by ity of mg tablet 10:31: mouth in [place] [address] the Medical morning. Branch Indication s: depression [...] 100 at unit/mL bedtime. (70-30) injection SERTraline 0 Yes 882 50mg Take 1 Unive rs (ZOLOFT) 50 5-23 tablet by ity of mg tablet 10:31: [place] the Medical morning. Branch Indication s: depression levETIRAcet 0 Yes 2716 500mg Take 1 Uni vers am (KEPPRA) 5-23 tablet by ity of 500 mg 10:31: mouth in [place] tablet 26 the Medical morning Branch and 1 tablet at noon and 1 tablet in the evening. Indication s: seizures hydrOXYzine Yes 25mg Take 1 Univ ers 25 [...] at unit/mL bedtime. (70-30) injection SERTraline 2022-0 2022- No Univer s 100 mg 4-30 05-23 ity of tablet 00:00: 00:00 [place] 00 :00 Medical Branch SERTraline 2022-0 2022- No Univer s 100 mg 4-30 05-23 ity of tablet 00:00: 00:00 [place] 00 :00 Medical Branch albuterol 2021-08 Yes [id number] 2{puff} Inhale 2 Univers 90 2-28 Puffs ity of mcg/actuati 00:00: every 4 Imer as on inhaler 00 (four) Medical hours as Branch needed for Wheezing or Shortness of Breath. albuterol 2021-08 Yes [id number] 2{puff} Inhale 2 Univers 90 2-28 Puffs ity of mcg/actuati 00:00: every 4 Imer as on inhaler 00 (four) Medical hours as Branch needed for Wheezing or Shortness of Breath. albuterol 2021-08 Yes [id number] 2{puff} Inhale 2 Univers 90 2-28 Puffs ity of mcg/actuati 00:00: every 4 Imer as on inhaler 00 (four) Medical hours as Branch needed for Wheezing or Shortness of Breath. albuterol 2021-08 Yes [id number] 2{puff} Inhale 2 Univers 90 2-28 Puffs ity of mcg/actuati 00:00: every 4 Imer as on inhaler 00 (four) Medical hours as Branch needed for Wheezing or Shortness of Breath. cephalexin 2021-08- No 500mg [id number] Take 1 Methodi (Keflex) 0-13 10-19 [id number] capsule s t 500 MG 00:00: 04:59 [...] to 5 days. cephalexin 2021-08- No 500mg Q.[id number] Take 1 Methodi (Keflex) 0-13 10-19 [id number] capsule s t 500 MG 00:00: 04:59 [...] to 5 days. cephalexin 2021-08- No 500mg Q.[id number] Take 1 [facility]i (Keflex) 0-13 10-19 [id number] capsule s t 500 MG 00:00: 04:59 [...] to 5 days. cephalexin 2021-08- No 500mg Q.[id number] Take 1 Methodi (Keflex) 0-13 10- [id number] capsule s t 500 MG 00:00: 04:59 [...] to 5 days. cephalexin 2021-08- No 500mg Q.[id number] Take 1 Methodi (Keflex) 0-13 - [id number] capsule s t 500 MG 00:00: 04:59 [...] to 5 days. cephalexin 2021-08- No 500mg Q.[id number] Take 1 Methodi (Keflex) 0-13 10- [id number] capsule s t 500 MG 00:00: 04:59 [...] to 5 days. cephalexin 2021-08- No 500mg Q.[id number] Take 1 Methodi (Keflex) 0-13 10-19 [id number] capsule s t 500 MG 00:00: 04:59 [...] to 5 days. cephalexin 2021-08 No 500mg Q.[id number] Take 1 Methodi (Keflex) 0-13 10-19 [id number] capsule s t 500 MG 00:00: 04:59 [...] to 5 days. cephalexin 2021-08- No 500mg Q.[id number] Take 1 Methodi (Keflex) 0-13 10-19 [id number] capsule s t 500 MG 00:00: 04:59 [...] No 1{tbl} Take 1 U nivers en-codeine 05-13- tablet by ity of 300-30 mg 00:00: 00:00 mouth. [place] tablet 00 :00 Medical Branch ergocalcife 2021-0 Yes [id number] Take 1 Un jo rol, 9-08 capsule by ity of vitamin d2, 00:00: mouth [place] 1,250 mcg 00 weekly. Medical (50,000 Branch unit) capsule ergocalcife 2-0 Yes [id number] Take 1 Un jo rol, 9-08 capsule by ity of vitamin d2, 00:00: mouth [place] 1,250 mcg 00 weekly. Medical (50,000 Branch unit) capsule ergocalcife 2022-0 Yes [id number] Take 1 Un jo rol, 9-08 capsule by ity of vitamin d2, 00:00: mouth [place] 1,250 mcg 00 weekly. Medical (50,000 Branch unit) capsule loratadine 2022- No 10mg Take 1 Univ ers 10 mg 05-07 tablet by ity of tablet 00:00: 00:00 mouth [place] 00 :00 every Medical morning. Branch SUMAtriptan 2022- No Take 1 Uni vers 25 mg 05-07-23 tablet by ity of tablet 00:00: 00:00 mouth at [place] 00 :00 onset of Medical headache. Branch Repeat after 2 hours if needed. Maximum 200mg/24 hours. loratadine 2022- No 10mg Take 1 Univ ers 10 mg 05-0723 tablet by ity of tablet 00:00: 00:00 mouth [place] 00 :00 every Medical morning. Branch SUMAtriptan 2021-0 2023- No Take 1 Uni vers 25 mg 05-07 tablet by ity of tablet 00:00: 00:00 mouth at [place] 00 :00 onset of Medical headache. Jeannette Repeat after 2 hours if needed. Maximum 200mg/24 hours. potassium 2021-0 No /= 14 Memoria chloride 7-21 Vietnamese, l 05:55: december [place] 00 dissolve each 20 mEq tablet in 4 oz of water. Allow about 2 minutes for the tablets to disintegra te. Stir before giving to prepare slurry and administer . Please exclude patient's with feeding tube less than 14 Vietnamese (Dobhoff, J-tube, etc) and pediatric and patients. potassium 2022-0 No /= 14 Memoria chloride 7-21 Vietnamese, l 05:55: december [place] 00 dissolve each 20 mEq tablet in 4 oz of water. Allow about 2 minutes for the tablets to disintegra te. Stir before giving to prepare slurry and administer . Please exclude patient's with feeding tube less than 14 Vietnamese (Dobhoff, J-tube, etc) and pediatric and patients. potassium 2022-0 No /= 14 Memoria chloride 7-21 Vietnamese, l 05:55: december [place] 00 dissolve each 20 mEq tablet in 4 oz of water. Allow about 2 minutes for the tablets to disintegra te. Stir before giving to prepare slurry and administer . Please exclude patient's with feeding tube less than 14 Vietnamese (Dobhoff, J-tube, etc) and pediatric and patients. potassium 2022-0 No /= 14 Memoria chloride 7-21 Vietnamese, l 05:55: december Dav 00 dissolve each 20 mEq tablet in 4 oz of water. Allow about 2 minutes for the tablets to disintegra te. Stir before giving to prepare slurry and administer . Please exclude patient's with feeding tube less than 14 Vietnamese (Dobhoff, J-tube, etc) and pediatric and patients. potassium 2022-0 No /= 14 Memoria chloride 7-21 Vietnamese, l 05:55: december Dav 00 dissolve each 20 mEq tablet in 4 oz of water. Allow about 2 minutes for the tablets to disintegra te. Stir before giving to prepare slurry and administer . Please exclude patient's with feeding tube less than 14 Vietnamese (Dobhoff, J-tube, etc) and pediatric and patients. potassium 2022-0 No /= 14 Memoria chloride 7-21 Vietnamese, l 05:55: may Dav 00 dissolve each 20 mEq tablet in 4 oz of water. Allow about 2 minutes for the tablets to disintegra te. Stir before giving to prepare slurry and administer . Please exclude patient's with feeding tube less than 14 Vietnamese (Dobhoff, J-tube, etc) and pediatric and patients. potassium 2022-0 No /= 14 Memoria chloride 7-21 Vietnamese, l 05:55: may [place] 00 dissolve each 20 mEq tablet in 4 oz of water. Allow about 2 minutes for the tablets to disintegra te. Stir before giving to prepare slurry and administer . Please exclude patient's with feeding tube less than 14 Vietnamese (Dobhoff, J-tube, etc) and pediatric and patients. potassium 2022-0 No /= 14 Memoria chloride 7-21 Vietnamese, l 05:55: may Dav 00 dissolve each 20 mEq tablet in 4 oz of water. Allow about 2 minutes for the tablets to disintegra te. Stir before giving to prepare slurry and administer . Please exclude patient's with feeding tube less than 14 Vietnamese (Dobhoff, J-tube, etc) and pediatric and patients. potassium 2022-0 No /= 14 Memoria chloride 7-21 Vietnamese, l 05:55: may [place] 00 dissolve each 20 mEq tablet in 4 oz of water. Allow about 2 minutes for the tablets to disintegra te. Stir before giving to prepare slurry and administer . Please exclude patient's with feeding tube less than 14 Vietnamese (Dobhoff, J-tube, etc) and pediatric and patients. potassium 2022-0 No /= 14 Memoria chloride 7-21 Vietnamese, l 05:55: may [place] 00 dissolve each 20 mEq tablet in 4 oz of water. Allow about 2 minutes for the tablets to disintegra te. Stir before giving to prepare slurry and administer . Please exclude patient's with feeding tube less than 14 Vietnamese (Dobhoff, J-tube, etc) and pediatric and patients. potassium 2022-0 No /= 14 Memoria chloride 7-21 Vietnamese, l 05:55: may [place] 00 dissolve each 20 mEq tablet in 4 oz of water. Allow about 2 minutes for the tablets to disintegra te. Stir before giving to prepare slurry and administer . Please exclude patient's with feeding tube less than 14 Vietnamese (Dobhoff, J-tube, etc) and pediatric and patients. potassium 2022-0 No /= 14 Memoria chloride 7-21 Vietnamese, l 05:55: may [place] 00 dissolve each 20 mEq tablet in 4 oz of water. Allow about 2 minutes for the tablets to disintegra te. Stir before giving to prepare slurry and administer . Please exclude patient's with feeding tube less than 14 Vietnamese (Dobhoff, J-tube, etc) and pediatric and patients. potassium 2022-0 No /= 14 Memoria chloride 7-21 Vietnamese, l 05:55: may Dav 00 dissolve each 20 mEq tablet in 4 oz of water. Allow about 2 minutes for the tablets to disintegra te. Stir before giving to prepare slurry and administer . Please exclude patient's with feeding tube less than 14 Vietnamese (Dobhoff, J-tube, etc) and pediatric and patients. potassium 2022-0 No /= 14 Memoria chloride 7-21 Vietnamese, l 05:55: may Dav 00 dissolve each 20 mEq tablet in 4 oz of water. Allow about 2 minutes for the tablets to disintegra te. Stir before giving to prepare slurry and administer . Please exclude patient's with feeding tube less than 14 Vietnamese (Dobhoff, J-tube, etc) and pediatric and patients. potassium 2022-0 No /= 14 Memoria chloride 7-21 Vietnamese, l 05:55: may [place] 00 dissolve each 20 mEq tablet in 4 oz of water. Allow about 2 minutes for the tablets to disintegra te. Stir before giving to prepare slurry and administer . Please exclude patient's with feeding tube less than 14 Vietnamese (Dobhoff, J-tube, etc) and pediatric and patients. potassium 2022-0 No /= 14 Memoria chloride 7-21 Vietnamese, l 05:55: may Dav 00 dissolve each 20 mEq tablet in 4 oz of water. Allow about 2 minutes for the tablets to disintegra te. Stir before giving to prepare slurry and administer . Please exclude patient's with feeding tube less than 14 Vietnamese (Dobhoff, J-tube, etc) and pediatric and patients. potassium 2022-0 No /= 14 Memoria chloride 7-21 Vietnamese, l 05:55: may [place] 00 dissolve each 20 mEq tablet in 4 oz of water. Allow about 2 minutes for the tablets to disintegra te. Stir before giving to prepare slurry and administer . Please exclude patient's with feeding tube less than 14 Vietnamese (Dobhoff, J-tube, etc) and pediatric and patients. EPINEPHrine 2021-0 Yes .3mg 0.3 mL by U nivers 0.3 mg/0.3 7-21 Intramuscu ity of mL 00:00: lar route. [place] injection 00 Medical Branch EPINEPHrine 2-0 Yes .3mg 0.3 mL by U nivers 0.3 mg/0.3 7-21 Intramuscu ity of mL 00:00: lar route. [place] injection 00 Medical Branch EPINEPHrine 2022-0 Yes .3mg 0.3 mL by U nivers 0.3 mg/0.3 7-21 Intramuscu ity of mL 00:00: lar route. [place] injection 00 Medical Branch fluticasone 2022-0 3- No 1{puff} Inhale 1 Univers propion-gideon 7-21 05-23 Puff. ity of meteroL 00:00: 00:00 [place] 250-50 00 :00 Medical mcg/dose Branch inhalation disk sucralfate 2-0 3- No 1g Take 1 Univ ers 1 gram 7-21 05-23 tablet by ity of tablet 00:00: 00:00 mouth 4 [place] 00 :00 (four) Medical times Branch daily. fluticasone 2022-0 3- No 1{puff} Inhale 1 Univers propion-gideon 7-21 05-23 Puff. ity of meteroL 00:00: 00:00 [place] 250-50 00 :00 Medical mcg/dose Branch inhalation disk sucralfate 2-0 3- No 1g Take 1 Univ ers 1 gram 7-21 05-23 tablet by ity of tablet 00:00: 00:00 [...] tab, PO, l tablet 03:27: Q6H, PRN [place] 00 Pain or Fever, Take with [...] day, # 40 tab, 0 Refill(s) ibuprofen 2-0 Yes 600 mg = 1 Me moria 600 mg oral 7-16 tab, PO, l tablet 03:27: Q6H, PRN [place] 00 Pain or Fever, Take with food, X 10 day, # 40 tab, 0 Refill(s) ibuprofen 2022-0 Yes 600 mg = 1 Me moria 600 mg oral 7-16 tab, PO, l tablet 03:27: Q6H, PRN [place] 00 Pain or Fever, Take with food, X 10 day, # 40 tab, 0 Refill(s) ibuprofen 2022-0 Yes 600 mg = 1 Me moria 600 mg oral 7-16 tab, PO, l tablet 03:27: Q6H, PRN [place] 00 Pain or Fever, Take with [...] tab, PO, l tablet 03:27: Q6H, PRN [place] 00 Pain or Fever, Take with food, X 10 day, # 40 tab, 0 Refill(s) ibuprofen 2021-0 Yes 600 mg = 1 Me moria 600 mg oral 7-16 tab, PO, l tablet 03:27: Q6H, PRN [place] 00 Pain or Fever, Take with [...] tab, PO, l tablet 03:27: Q6H, PRN [place] 00 Pain or Fever, Take with [...] vane 7-16 acetaminop l 00:44: hen 4000 [place] 00 mg/day (4 gm/day). (Same as: Tylenol Extra Strength) Tylenol No Notes: Max Henok vane 7-16 acetaminop l 00:44: hen 4000 [place] 00 mg/day (4 gm/day). (Same as: Tylenol Extra Strength) Tylenol 2021-0 No Notes: Max Henok vane 7-16 acetaminop l 00:44: hen 4000 [place] 00 mg/day (4 gm/day). (Same as: Tylenol Extra Strength) Tylenol 2021-0 No Notes: Max Henok vane 7-16 acetaminop l 00:44: hen 4000 [place] 00 mg/day (4 gm/day). (Same as: Tylenol Extra Strength) Tylenol 0 No Notes: Max Henok vane 7-16 acetaminop l 00:44: hen 4000 [place] 00 mg/day (4 gm/day). (Same as: Tylenol Extra Strength) Tylenol 0 No Notes: Max Henok vane 7-16 acetaminop l 00:44: hen 4000 [place] 00 mg/day (4 gm/day). (Same as: Tylenol Extra Strength) Tylenol 2021-0 No Notes: Max Henok vane 7-16 acetaminop l 00:44: hen 4000 [place] 00 mg/day (4 gm/day). (Same as: Tylenol Extra Strength) Tylenol No Notes: Max Henok avne 7-16 acetaminop l 00:44: hen 4000 [place] 00 mg/day (4 gm/day). (Same as: [...] vane 7-16 acetaminop l 00:44: hen 4000 [place] 00 mg/day (4 gm/day). (Same as: Tylenol Extra Strength) Tylenol 2021-0 No Notes: Max Henok vane 7-16 acetaminop l 00:44: hen 4000 [place] 00 mg/day (4 gm/day). (Same as: Tylenol Extra Strength) Tylenol 2021-0 No Notes: Max Henok vane 7-16 acetaminop l 00:44: hen 4000 [place] 00 mg/day (4 gm/day). (Same as: Tylenol Extra Strength) Tylenol 2021-0 No Notes: Max Henok vane 7-16 acetaminop l 00:44: hen 4000 Dav 00 mg/day (4 gm/day). (Same as: Tylenol Extra Strength) cyanocobala 2-0 Yes 1000ug 1 mL by U nivers min 1,000 7-05 Intramuscu ity of mcg/mL 00:00: lar route. [place] injection 00 [facility] cyanocobala 2-0 Yes 1000ug 1 mL by U nivers min 1,000 7-05 Intramuscu ity of mcg/mL 00:00: lar route. [place] injection 00 [facility] cyanocobala 2-0 Yes 1000ug 1 mL by U nivers min 1,000 7-05 Intramuscu ity of mcg/mL 00:00: lar route. [place] injection 00 [facility] ibuprofen 2022-0 2023- No 800mg Take 1 [facility] 800 mg 02-27-23 tablet by ity of tablet 00:00: 00:00 mouth. [place] 00 :00 [facility] ibuprofen 2022-0 2023- No 800mg Take 1 [facility] 800 mg 02-2723 tablet by ity of tablet 00:00: 00:00 mouth. [place] 00 :00 [facility] phentermine 2022-0 2023- No 37.5mg Take 1 U nivers 37.5 mg 6-28 05-23 capsule by ity o f capsule 00:00: 00:00 mouth [place] 00 :00 every Medical morning. Branch phentermine 2022-0 2023- No 37.5mg Take 1 U nivers 37.5 mg 6-28 05-23 capsule by ity o f capsule 00:00: 00:00 mouth [place] 00 :00 every Medical morning. Branch cabergoline 2021-0 Yes .25mg Take 0.5 U nivers 0.5 mg 6-09 tablets by ity of tablet 00:00: mouth. [place] 00 Medical [facility] cabergoline 2021-0 Yes .25mg Take 0.5 U nivers 0.5 mg 6-09 tablets by ity of tablet 00:00: mouth. [address] Branch cabergoline 2021-0 Yes .25mg Take 0.5 U nivers 0.5 mg 6-09 tablets by ity of tablet 00:00: mouth. [address] Branch venlafaxine 2021-0 3- No Take two U nivers 75 mg 6-01 05-23 tablets ity of tablet 00:00: 00:00 every [place] 00 :00 morning, Medical one tablet Branch at midday, and two tablets each evening for depression venlafaxine 2021-0 2022- No Take two U nivers 75 mg 6-01 05-23 tablets ity of tablet 00:00: 00:00 every [place] 00 :00 morning, Medical one tablet Branch at midday, and two tablets each evening for depression furosemide 2020-0 Yes 40mg Q.5D Take 40 mg M ethodi (LASIX) 40 5-[address] mg tablet 10:40: (two) [facility] 34 times a l day. furosemide 2020-0 Yes 40mg Q.5D Take 40 mg M ethodi (LASIX) 40 5-[address] mg tablet 10:40: (two) [facility]osp[facility] 34 times a l day. furosemide 1-0 Yes 40mg Q.5D Take 40 mg M [...] times a l day. insulin 2021-0 Yes [id number] Inject Me thodi ASPART 5-[id number] (NovoLOG) 10:40: 3D skin [...] nightly. l injection (vial) insulin 2021-0 Yes [id number] Inject Me thodi ASPART 5-[id number] (NovoLOG) 10:40: 3D skin [...] nightly. l injection (vial) insulin 2021-0 Yes [id number] Inject Me thodi ASPART 5-[id number] (NovoLOG) 10:40: 3D skin [...] nightly. l injection (vial) insulin 2021-0 Yes [id number] Inject Me thodi ASPART 5-[id number] (NovoLOG) 10:40: 3D skin [...] unit/mL 33 nightly. l injection (vial) insulin 202-0 Yes [id number] Inject Me thodi ASPART 5-[id number] (NovoLOG) 10:40: 3D skin [...] nightly. l injection (vial) insulin 2021-0 Yes [id number] Inject Me thodi ASPART 5-[id number] (NovoLOG) 10:40: 3D skin [...] nightly. l injection (vial) insulin 2021-0 Yes [id number] Inject Me thodi ASPART 5-[id number] (NovoLOG) 10:40: 3D skin [...] unit/mL 33 nightly. l injection (vial) insulin 202-0 Yes [id number] Inject Me thodi ASPART 5-[id number] (NovoLOG) 10:40: 3D skin 3 Hospit a 100 unit/mL 33 (three) l injection times a day before meals. metFORMIN 2020-0 Yes 850mg Q.5D Take 850 Met hodi (GLUCOPHAGE 5-[address] ) 850 mg 10:40: mouth 2 Hospit a tablet 33 (two) l times a day with meals. insulin 202-0 Yes QD Inject Methodi GLARGINE 5-[address] (LANTUS) 10:40: skin [facility]osp[facility] 100 unit/mL 33 nightly. l injection (vial) insulin 2021-0 Yes [id number] Inject Me thodi ASPART 5-[id number] (NovoLOG) 10:40: 3D skin [...] 1-22 (Same as: l 00:00: Reglan) Reglan 2016-0 No Notes: [facility] 1-22 (Same as: l 00:00: Reglan) [place] Reglan No Notes: [facility]oria 1-22 (Same as: l 00:00: Reglan) [facility] 00 Reglan No Notes: [facility] 1-22 (Same as: l 00:00: Reglan) [place] 00 Reglan No Notes: [facility] 1-22 (Same as: l 00:00: Reglan) [place] 00 Reglan No Notes: [facility] 1-22 (Same as: l 00:00: Reglan) [place] 00 Reglan No Notes: [facility] 1-22 (Same as: l 00:00: Reglan) [place] 00 Reglan No Notes: [facility] 1-22 (Same as: l 00:00: Reglan) [place] 00 Reglan No Notes: [facility] 1-22 (Same as: l 00:00: Reglan) [facility] 00 Reglan No Notes: [facility] 1-22 (Same as: l 00:00: Reglan) [place] 00 Reglan No Notes: [facility] 1-22 (Same as: l 00:00: Reglan) [place] 00 Sodium 0 No 1,000 mL, Memori a Chloride 1-21 Rate: 25 l 0.154 18:06: ml/hr, Dav MEQ/ML 00 Infuse Injectable over: 40 Solution hr, Route: IV, Dosing Weight 160.909 kg, Total Volume: 1,000, Start date: 09/19/15 12:06:00, Duration: 30 day, Stop date: 10/19/15 12:05:00 Sodium 2015-0 No 1,000 mL, Memori a Chloride 1-21 Rate: 25 l 0.154 18:06: ml/hr, [place] MEQ/ML 00 Infuse Injectable over: 40 [...] 1-21 Rate: 25 l 0.154 18:06: ml/hr, [place] MEQ/ML 00 Infuse Injectable over: 40 Solution hr, Route: IV, Dosing Weight 160.909 kg, Total Volume: 1,000, Start date: 09/19/15 12:06:00, Duration: 30 day, Stop date: 10/19/15 12:05:00 Sodium 2016-0 No 1,000 mL, Memori a Chloride 1-21 Rate: 25 l 0.154 18:06: ml/hr, [place] MEQ/ML 00 Infuse Injectable over: 40 Solution hr, Route: IV, Dosing Weight 160.909 kg, Total Volume: 1,000, Start date: 09/19/15 12:06:00, Duration: 30 day, Stop date: 10/19/15 12:05:00 Sodium 2016-0 No 1,000 mL, Memori a Chloride 1-21 Rate: 25 l 0.154 18:06: ml/hr, [place] MEQ/ML 00 Infuse Injectable over: 40 Solution hr, Route: IV, Dosing Weight 160.909 kg, Total Volume: 1,000, Start date: 09/19/15 12:06:00, Duration: 30 day, Stop date: 10/19/15 12:05:00 Sodium 2016-0 No 1,000 mL, Memori a Chloride 1-21 Rate: 25 l 0.154 18:06: ml/hr, [place] MEQ/ML 00 Infuse Injectable over: 40 [...] 1-21 Rate: 25 l 0.154 18:06: ml/hr, [place] MEQ/ML 00 Infuse Injectable over: 40 [...] 1-21 Rate: 25 l 0.154 18:06: ml/hr, [place] MEQ/ML 00 Infuse Injectable over: 40 [...] 1-21 Rate: 25 l 0.154 18:06: ml/hr, [place] MEQ/ML 00 Infuse Injectable over: 40 [...] 1-21 Rate: 25 l 0.154 18:06: ml/hr, [place] MEQ/ML 00 Infuse Injectable over: 40 Solution hr, Route: IV, Dosing Weight 160.909 kg, Total Volume: 1,000, Start date: 09/19/15 12:06:00, Duration: 30 day, Stop date: 10/19/15 12:05:00 thiamine 2016-0 Yes 100 mg = 1 Mem oria 100 mg oral 1-21 tab, PO, l tablet 17:08: Daily, X [place] 00 14 day, # 14 tab, 0 Refill(s) pantoprazol 0 Yes 40 mg = 1 M emoria e 40 mg 1-21 tab, PO, l oral 17:08: Before [place] enteric 00 Dinner, # coated 30 tab, 0 tablet Refill(s) Promethazin 2016-0 Yes 12.5 mg = M emoria e 1-21 1 tab, PO, l Hydrochlori 17:08: Q6H, PRN He nawaf de 12.5 MG 00 Nausea & Oral [...] 1-21 tab, PO, l oral 17:08: Before [place] enteric Dinner, # coated 30 tab, 0 tablet Refill(s) Promethazin 2016-0 Yes 12.5 mg = M emoria e 1-21 1 tab, PO, l Hydrochlori 17:08: Q6H, PRN Colin flores 12.5 MG 00 Nausea & Oral Tablet Vomiting, [Phenergan] X 7 day, # 28 tab, 0 Refill(s) Folic Acid 2016-0 Yes 1 mg = 1 Mem oria 1 MG Oral 1-21 tab, PO, l Tablet 17:08: Daily, # [place] 00 30 tab, 0 Refill(s) thiamine [...] tab, PO, l Hydrochlori 17:08: Q6H, PRN Colin rmkailash de 12.5 MG 00 Nausea & Oral [...] PO, l Hydrochlori 17:08: Q6H, PRN He de 12.5 MG 00 Nausea & Oral [...] 1-21 tab, PO, l oral 17:08: Before [place] enteric 00 Dinner, # coated 30 [...] 1-21 tab, PO, l oral 17:08: Before [place] enteric 00 Dinner, # coated 30 [...] day, # 14 tab, 0 Refill(s) pantoprazol 2015-0 Yes 40 mg = 1 M emoria [...] 1-21 tab, PO, l oral 17:08: Before [place] enteric 00 Dinner, # coated 30 [...] 17:08: Daily, # 30 tab, 0 Refill(s) Folic Acid 2016-0 [...] tab, PO, l Tablet 17:08: Daily, # [place] 00 30 tab, 0 Refill(s) thiamine 2015-0 Yes 100 mg = 1 Mem oria 100 mg oral 1-21 tab, PO, l tablet 17:08: Daily, X 14 day, # 14 tab, 0 Refill(s) pantoprazol 2016-0 Yes 40 mg = 1 M emoria e 40 mg 1-21 tab, PO, l oral 17:08: Before [place] enteric 00 Dinner, # coated 30 [...] [facility] 00 30 tab, 0 Refill(s) thiamine 2015-0 Yes 100 mg = 1 Mem oria 100 mg oral 1-21 tab, PO, l tablet 17:08: Daily, X 14 day, # 14 tab, 0 Refill(s) pantoprazol Yes 40 mg = 1 M emoria e 40 mg 1-21 tab, PO, l oral 17:08: Before [facility] enteric Dinner, # coated 30 tab, 0 tablet Refill(s) Promethazin 2015-0 Yes 12.5 mg = M emoria e [...] day, # 14 tab, 0 Refill(s) pantoprazol 2015-0 Yes 40 mg = 1 M emoria [...] 0 Refill(s) Melatonin No 1 mg, [facility] 1 Route: PO, l 03:00: Drug form: [place] 00 TAB, Bedtime, Dosing Weight 160.909, kg, Start date: 09/18/15 21:00:00, Duration: 30 day, Stop date: 10/17/15 21:00:00 Lamictal 2015-0 No Notes: [facility] 1-21 (Same l 03:00: as:LaMICta [place] 00 l) Strattera No 80 mg, Memori a 1-21 Route: PO, l 03:00: Drug form: [place] 00 CAP, Bedtime, Dosing Weight 160.909, kg, Start date: 09/18/15 21:00:00, Duration: 30 day, Stop date: 10/17/15 21:00:00 Melatonin No 1 mg, [facility] 1 Route: PO, l 03:00: Drug form: [place] 00 TAB, Bedtime, Dosing Weight 160.909, kg, Start date: 09/18/15 21:00:00, Duration: 30 day, Stop date: 10/17/15 21:00:00 Lamictal 2015-0 No Notes: [facility] 1-21 (Same l 03:00: as:LaMICta [place] 00 l) Strattera 0 No 80 mg, Memori a 1-21 Route: PO, l 03:00: Drug form: [place] 00 CAP, Bedtime, Dosing Weight 160.909, kg, Start date: 09/18/15 21:00:00, Duration: 30 day, Stop date: 10/17/15 21:00:00 Melatonin 2015-0 No 1 mg, [facility] 1-21 Route: PO, l 03:00: Drug form: [place] 00 TAB, Bedtime, Dosing Weight 160.909, kg, Start date: 09/18/15 21:00:00, Duration: 30 day, Stop date: 10/17/15 21:00:00 Lamictal 2016-0 No Notes: [facility] 1-21 (Same l 03:00: as:LaMICta [place] 00 l) Strattera 2016-0 No 80 mg, [...] 1-21 Route: PO, l 03:00: Drug form: [place] 00 CAP, Bedtime, Dosing Weight 160.909, kg, Start date: 09/18/15 21:00:00, Duration: 30 day, Stop date: 10/17/15 21:00:00 Melatonin 2015-0 No 1 mg, [facility] 1- Route: PO, l 03:00: Drug form: [place] 00 TAB, Bedtime, Dosing Weight 160.909, kg, Start date: 09/18/15 21:00:00, Duration: 30 day, Stop date: 10/17/15 21:00:00 Lamictal 2016-0 No Notes: [facility] 1-21 (Same l 03:00: as:LaMICta [place] 00 l) Strattera 2016-0 No 80 mg, Memori a 1-21 Route: PO, l 03:00: Drug form: [place] 00 CAP, Bedtime, Dosing Weight 160.909, [...] 21:00:00 Melatonin 0 No 1 mg, [facility] 09-19 Route: PO, l 03:00: Drug form: [place] 00 TAB, Bedtime, Dosing Weight 160.909, kg, Start date: 09/18/15 21:00:00, Duration: 30 day, Stop date: 10/17/15 21:00:00 Lamictal 2016-0 No Notes: [facility] 1- (Same l 03:00: as:LaMICta [place] 00 l) Strattera 0 No 80 mg, Memori a 1- Route: PO, l 03:00: Drug form: [place] 00 CAP, Bedtime, Dosing Weight 160.909, [...] 21:00:00 Melatonin 2015-0 No 1 mg, [facility] 1- Route: PO, l 03:00: Drug form: [place] 00 TAB, Bedtime, Dosing Weight 160.909, kg, Start date: 09/18/15 21:00:00, Duration: 30 day, Stop date: 10/17/15 21:00:00 Lamictal 2016-0 No Notes: [facility] 1-21 (Same l 03:00: as:LaMICta [place] 00 l) Strattera 0 No 80 mg, Memori a 1-21 Route: PO, l 03:00: Drug form: [place] 00 CAP, Bedtime, Dosing Weight 160.909, kg, Start date: 09/18/15 21:00:00, Duration: 30 day, Stop date: 10/17/15 21:00:00 Melatonin 2015-0 No 1 mg, [facility] 1 Route: PO, l 03:00: Drug form: [place] 00 TAB, Bedtime, Dosing Weight 160.909, kg, Start date: 09/18/15 21:00:00, Duration: 30 day, Stop date: 10/17/15 21:00:00 Lamictal 2016-0 No Notes: [facility] 1-21 (Same l 03:00: as:LaMICta [place] 00 l) Strattera 0 No 80 mg, Memori a 1-21 Route: PO, l 03:00: Drug form: [place] 00 CAP, Bedtime, Dosing Weight 160.909, kg, Start date: 09/18/15 21:00:00, Duration: 30 day, Stop date: 10/17/15 21:00:00 Melatonin 2015-0 No 1 mg, [facility] 1- Route: PO, l 03:00: Drug form: [place] 00 TAB, Bedtime, Dosing Weight 160.909, kg, Start date: 09/18/15 21:00:00, Duration: 30 day, Stop date: 10/17/15 21:00:00 Lamictal 2016-0 No Notes: [facility] 1-21 (Same l 03:00: as:LaMICta [place] 00 l) Strattera 2016-0 No 80 mg, Memori a 1-21 Route: PO, l 03:00: Drug form: [place] 00 CAP, Bedtime, Dosing Weight 160.909, kg, Start date: 09/18/15 21:00:00, Duration: 30 day, Stop date: 10/17/15 21:00:00 Melatonin 2015-0 No 1 mg, [facility] 1-21 Route: PO, l 03:00: Drug form: [place] 00 TAB, Bedtime, Dosing Weight 160.909, [...] Notes: [facility] 1-21 (Same l 03:00: as:LaMICta [place] 00 l) Strattera 2016-0 No 80 mg, [...] 1-21 Route: PO, l 03:00: Drug form: [place] 00 CAP, Bedtime, Dosing Weight 160.909, kg, Start date: 09/18/15 21:00:00, Duration: 30 day, Stop date: 10/17/15 21:00:00 Melatonin 2015-0 No 1 mg, [facility] 1-21 Route: PO, l 03:00: Drug form: [place] 00 TAB, Bedtime, Dosing Weight 160.909, kg, Start date: 09/18/15 21:00:00, Duration: 30 day, Stop date: 10/17/15 21:00:00 Lamictal 2016-0 No Notes: [facility] 1-21 (Same l 03:00: as:LaMICta [place] 00 l) Strattera 2015-0 No 80 mg, Memori a 1-21 Route: PO, l 03:00: Drug form: [place] 00 CAP, Bedtime, Dosing Weight 160.909, kg, Start date: 09/18/15 21:00:00, Duration: 30 day, Stop date: 10/17/15 21:00:00 Melatonin 2015-0 No 1 mg, [facility] 1- Route: PO, l 03:00: Drug form: [place] 00 TAB, Bedtime, Dosing Weight 160.909, kg, Start date: 09/18/15 21:00:00, Duration: 30 day, Stop date: 10/17/15 21:00:00 Lamictal 2016-0 No Notes: [facility] 1-21 (Same l 03:00: as:LaMICta [place] 00 l) Strattera 2016-0 No 80 mg, Memori a 1-21 Route: PO, l 03:00: Drug form: [place] 00 CAP, Bedtime, Dosing Weight 160.909, [...] Strattera 2015-0 No 80 mg, Memori a 09-19 Route: PO, l 03:00: Drug form: [place] 00 CAP, Bedtime, Dosing Weight 160.909, [...] Memoria 1-20 Tablet l 22:30: should not [place] 00 be chewed or crushed. (Same as: Protonix) Protonix 0 No Notes: [facility] 1-20 Tablet l 22:30: should not [facility] 00 be chewed or crushed. (Same as: Protonix) Protonix 2015-0 No Notes: [facility] 1-20 Tablet l 22:30: should not [place] 00 be chewed or crushed. (Same as: Protonix) Protonix 2015-0 No Notes: [facility] 1-20 Tablet l 22:30: should not [place] 00 be chewed or crushed. (Same as: Protonix) Protonix 2015-0 No Notes: [facility] 1-20 Tablet l 22:30: should not [place] 00 be chewed or crushed. (Same as: Protonix) Protonix 2015-0 No Notes: [facility] 1-20 Tablet l 22:30: should not [place] 00 be chewed or crushed. (Same [...] [facility]oria 1-20 Tablet l 22:30: should not [place] 00 be chewed or crushed. (Same [...] [facility] 1-20 Tablet l 22:30: should not [place] 00 be chewed or crushed. (Same as: Protonix) Thiamine No Notes: [facility] 1-20 (Same As: l 20:00: Vitamin [facility] 00 B1) Thiamine No Notes: [facility] 1-20 (Same As: l 20:00: Vitamin [place] 00 B1) Thiamine No Notes: [facility] 1-20 (Same As: l 20:00: Vitamin [place] 00 B1) Thiamine No Notes: [facility] 1-20 (Same As: l 20:00: Vitamin [place] 00 B1) Thiamine No Notes: [facility] 1-20 (Same As: l 20:00: Vitamin [place] 00 B1) Thiamine No Notes: [facility] 1-20 (Same As: l 20:00: Vitamin [place] 00 B1) Thiamine No Notes: [facility] 1-20 (Same As: l 20:00: Vitamin [place] 00 B1) Thiamine No Notes: [facility] 1-20 (Same As: l 20:00: Vitamin [place] 00 B1) Thiamine No Notes: [facility] 1-20 (Same As: l 20:00: Vitamin [place] 00 B1) Thiamine No Notes: [facility] 1-20 (Same As: l 20:00: Vitamin [place] 00 B1) Thiamine No Notes: [facility] 1-20 (Same As: l 20:00: Vitamin [place] 00 B1) Thiamine No Notes: [facility] 1-20 (Same As: l 20:00: Vitamin [place] 00 B1) Thiamine No Notes: [facility] 1-20 (Same As: l 20:00: Vitamin [place] 00 B1) Thiamine No Notes: [facility] 1-20 (Same As: l 20:00: Vitamin [place] 00 B1) Thiamine No Notes: [facility] 1-20 (Same As: l 20:00: Vitamin [place] 00 B1) Thiamine No Notes: [facility] 1-20 (Same As: l 20:00: Vitamin [place] 00 B1) Thiamine No Notes: [facility] 1-20 (Same As: l 20:00: Vitamin [place] 00 B1) Folic Acid No Notes: Memor ia 1-20 (Same as: l 19:00: Folvite) [place] 00 Folic Acid No Notes: Memor ia 1-20 (Same as: l 19:00: Folvite) [place] 00 Folic Acid No Notes: Memor ia 1-20 (Same as: l 19:00: Folvite) [place] 00 Folic Acid No Notes: Memor ia 1-20 (Same as: l 19:00: Folvite) [place] 00 Folic Acid No Notes: Memor ia 1-20 (Same as: l 19:00: Folvite) [place] Folic Acid No Notes: Memor ia 1-20 (Same as: l 19:00: Folvite) [place] 00 Folic Acid No Notes: Memor ia [...] 30 day, Stop date: 10/18/15 12:37:00 normal 0 No 1,000 mL, Memori a saline 0.9% 1-20 Rate: 125 l IV 1,000 mL 18:38: ml/hr, Herm kailash 00 Infuse over: 8 hr, Route: IV, Dosing Weight 160.909 kg, Total Volume: 1,000, Start date: 09/18/15 12:38:00, Duration: 30 day, Stop date: 10/18/15 12:37:00 normal 2015-0 No 1,000 mL, Memori a saline 0.9% [...] 30 day, Stop date: 10/18/15 12:37:00 Prinivil 2016-0 No Notes: [facility] 1-20 (Same as: l 15:00: Prinivil, [place] 00 Zestril) Lovenox 0 No Notes: [facility] 1-20 (Same as: l 15:00: Lovenox) hydrochloro No Notes: Henok vane thiazide 25 1-20 (Same as: l mg oral 15:00: Hydrodiuri Herm kailash tablet 00 l) With food. Prilosec No 40 mg, [facility] 1-20 Route: PO, l 15:00: Drug form: [place] 00 DRC, Daily, Dosing Weight 160.909, kg, [...] Memoria 1-20 (Same as: l 15:00: Prinivil, [place] 00 Zestril) Lovenox 0 No Notes: [...] vane n 1-20 Route: l 15:00: CHEW, [place] 00 Dosing Weight 160.909, kg, BID, Start date: 09/18/15 9:00:00, Duration: 30 day, Stop date: 10/17/15 17:00:00 Hydrochloro 2015-0 No 1 tab, Henok vane thiazide 25 1-20 Route: PO, l MG / 15:00: Drug Form: [place] Lisinopril 00 TAB, 20 MG Oral Dosing Tablet Weight 160.909, kg, Daily, Start date: 09/18/15 9:00:00, Duration: 30 day, Stop date: 10/17/15 9:00:00 Prinivil No Notes: [facility] 1-20 (Same as: l 15:00: Prinivil, [place] 00 Zestril) Lovenox 0 No Notes: [facility] 1-20 (Same as: l 15:00: Lovenox) [place] 00 hydrochloro No Notes: Henok vane thiazide 25 1-20 (Same as: l mg oral 15:00: Hydrodiuri Herm kailash tablet 00 l) With food. Prilosec No 40 mg, [facility] 1-20 Route: PO, l 15:00: Drug form: [place] 00 DRC, Daily, Dosing Weight 160.909, kg, Start date: 09/18/15 9:00:00, Duration: 30 day, Stop date: 10/17/15 9:00:00 multivitami 2016-0 No 2 tab, Henok vane n 1-20 Route: l 15:00: CHEW, [place] 00 Dosing Weight 160.909, kg, BID, Start date: 09/18/15 9:00:00, Duration: 30 day, Stop date: 10/17/15 17:00:00 Hydrochloro 2015-0 No 1 tab, Henok vane thiazide 25 1-20 Route: PO, l MG / 15:00: Drug Form: [place] Lisinopril 00 TAB, 20 MG Oral Dosing Tablet Weight 160.909, kg, Daily, Start date: 09/18/15 9:00:00, Duration: 30 day, Stop date: 10/17/15 9:00:00 Prinivil 2016-0 No Notes: [facility] 1-20 (Same as: l 15:00: Prinivil, [place] 00 Zestril) Lovenox No Notes: Memoria [...] vane n 1-20 Route: l 15:00: CHEW, [place] Dosing Weight 160.909, kg, BID, Start date: [...] Memoria 1-20 (Same as: l 15:00: Prinivil, [place] 00 Zestril) Lovenox No Notes: [facility] 1-20 (Same as: l 15:00: Lovenox) hydrochloro No Notes: Henok vane thiazide 25 1-20 (Same as: l mg oral 15:00: Hydrodiuri Herm kailash tablet 00 l) With food. Prilosec No 40 mg, [facility] 1-20 Route: PO, l 15:00: Drug form: [place] 00 DRC, Daily, Dosing Weight 160.909, kg, [...] PO, l MG / 15:00: Drug Form: [place] Lisinopril 00 TAB, 20 MG Oral Dosing Tablet Weight 160.909, kg, Daily, Start date: 09/18/15 9:00:00, Duration: 30 day, Stop date: 10/17/15 9:00:00 Prinivil 0 No Notes: [facility] 1-20 (Same as: l 15:00: Prinivil, [place] 00 Zestril) Lovenox 2015-0 No Notes: [facility] 1-20 (Same as: l 15:00: Lovenox) [place] 00 hydrochloro 0 No Notes: Henok vane thiazide 25 1-20 (Same as: l mg oral 15:00: Hydrodiuri Herm kailash tablet 00 l) With food. Prilosec 2016-0 No 40 mg, [facility] 1-20 Route: PO, l 15:00: Drug form: [place] 00 DRC, Daily, Dosing Weight 160.909, kg, Start date: 09/18/15 9:00:00, Duration: 30 day, Stop date: 10/17/15 9:00:00 multivitami 2016-0 No 2 tab, Henok vane n 1-20 Route: l 15:00: CHEW, [place] 00 Dosing Weight 160.909, kg, BID, [...] 1-20 Route: PO, l 15:00: Drug form: [place] 00 DRC, Daily, Dosing Weight 160.909, kg, Start date: 09/18/15 9:00:00, Duration: 30 day, Stop date: 10/17/15 9:00:00 multivitami No 2 tab, Henok vane n 1-20 Route: l 15:00: CHEW, [place] 00 Dosing Weight 160.909, kg, BID, [...] Notes: [facility] 1-20 (Same as: l 15:00: PrinivilRhinaDav Zestril) Lovenox 0 No Notes: [facility] 1-20 (Same as: l 15:00: Lovenox) [place] 00 hydrochloro 0 No Notes: Henok [...] vane n 1-20 Route: l 15:00: CHEW, [place] Dosing Weight 160.909, kg, BID, Start date: [...] [facility] 1-20 (Same as: l 15:00: Lovenox) [place] 00 hydrochloro No Notes: Henok vane thiazide [...] PO, l MG / 15:00: Drug Form: [place] Lisinopril 00 TAB, 20 MG Oral Dosing Tablet Weight 160.909, kg, Daily, Start date: 09/18/15 9:00:00, Duration: 30 day, Stop date: 10/17/15 9:00:00 Prinivil No Notes: [facility] 1-20 (Same as: l 15:00: Prinivil, [place] 00 Zestril) Prinivil No Notes: [facility] 1-20 (Same as: l 15:00: Prinivil, [place] 00 Zestril) Lovenox No Notes: [facility] 1-20 (Same as: l 15:00: Lovenox) [place] 00 hydrochloro No Notes: Henko vane thiazide 25 1-20 (Same as: l mg oral 15:00: Hydrodiuri Herm kailash tablet 00 l) With food. Prilosec No 40 mg, [facility] 1-20 Route: PO, l 15:00: Drug form: [place] 00 DRC, Daily, Dosing Weight 160.909, kg, [...] [facility] 1-20 (Same as: l 15:00: Lovenox) [place] 00 hydrochloro 2015-0 No Notes: Henok vane thiazide 25 1-20 (Same as: l mg oral 15:00: Hydrodiuri Herm kailash tablet 00 l) With food. Prilosec No 40 mg, [facility] 1-20 Route: PO, l 15:00: Drug form: [place] DRC, Daily, Dosing Weight 160.909, kg, [...] [facility] 1-20 (Same as: l 15:00: Lovenox) [place] hydrochloro No Notes: Henok vane thiazide [...] 30 day, Stop date: 10/17/15 9:00:00 Hydrochloro No 1 tab, Henok vane thiazide 25 1-20 Route: PO, l MG / 15:00: Drug Form: [place] Lisinopril 00 TAB, 20 MG Oral [...] vane n 1-20 Route: l 15:00: CHEW, [place] 00 Dosing Weight 160.909, kg, BID, [...] Memoria 1-20 (Same as: l 15:00: Lovenox) [place] hydrochloro 0 No Notes: Henok vane thiazide 25 1-20 (Same as: l mg oral 15:00: Hydrodiuri Herm kailash tablet 00 l) With food. Prilosec 0 No 40 mg, [facility]oria 1-20 Route: PO, l 15:00: Drug form: [place] 00 DRC, Daily, Dosing Weight 160.909, kg, Start date: 09/18/15 9:00:00, Duration: 30 day, Stop date: 10/17/15 9:00:00 multivitami 2016-0 No 2 tab, H[place] vane n 1-20 Route: l 15:00: CHEW, [place] 00 Dosing Weight 160.909, kg, BID, Start date: 09/18/15 9:00:00, Duration: 30 day, Stop date: 10/17/15 17:00:00 Hydrochloro 0 No 1 tab, Henok vane [...] 1-20 Route: PO, l 15:00: Drug form: [place] 00 DRC, Daily, Dosing Weight 160.909, kg, Start date: 09/18/15 9:00:00, Duration: 30 day, Stop date: 10/17/15 9:00:00 multivitami 2015-0 No 2 tab, Hen[place] vane n 1-20 Route: l 15:00: CHEW, [place] 00 Dosing Weight 160.909, kg, BID, Start date: 09/18/15 9:00:00, Duration: 30 day, Stop date: 10/17/15 17:00:00 Hydrochloro 0 No 1 tab, Henok vane thiazide 25 1-20 Route: PO, l MG / 15:00: Drug Form: [facility] Lisinopril 00 TAB, 20 MG Oral Dosing Tablet Weight 160.909, kg, Daily, Start date: 09/18/15 9:00:00, Duration: 30 day, Stop date: 10/17/15 9:00:00 Prinivil 0 No Notes: [facility] 1-20 (Same as: l 15:00: Prinivil, [facility] 00 Zestril) Lovenox 0 No Notes: Memoria [...] vane n 1-20 Route: l 15:00: CHEW, [place] Dosing Weight 160.909, kg, BID, Start date: 09/18/15 9:00:00, Duration: 30 day, Stop date: 10/17/15 17:00:00 Hydrochloro No 1 tab, Hen[place] vane thiazide 25 1-20 Route: PO, l MG / 15:00: Drug Form: [facility] Lisinopril 00 TAB, 20 MG Oral Dosing Tablet Weight 160.909, kg, Daily, Start date: 09/18/15 9:00:00, Duration: 30 day, Stop date: 10/17/15 9:00:00 *Remind pt No *Remind pt M emoria to bring 1-20 to bring l home med 06:00: home med Brigida nn melatonin 1 00 melatonin mg and 1 mg and multivitami multivitam n in, Reminder, Drug form: MISC, Route: KEEGAN POSADA, 09/18/15 0:00:00, Duration: 30 day, Stop date: [...] in, Reminder, Drug form: MISC, Route: MISC, ANASTASIYAHIFT, 09/18/15 0:00:00, Duration: 30 day, Stop date: [...] a 1-20 (Same as: l 05:00: Wellbutrin [place] 00 XL) "Do Not Crush" Bupropion No Notes: Memori a 1-20 (Same as: l 05:00: Wellbutrin [place] 00 XL) "Do Not Crush" Bupropion 2016-0 No Notes: Memori a 1-20 (Same as: l 05:00: Wellbutrin [place] 00 XL) "Do Not Crush" Bupropion 2015-0 No Notes: Memori a 1-20 (Same as: l 05:00: Wellbutrin [place] 00 XL) "Do Not Crush" Bupropion 0 No Notes: Memori a 1-20 (Same as: l 05:00: Wellbutrin [place] 00 XL) "Do Not Crush" Bupropion 0 No Notes: Memori a 1-20 (Same as: l 05:00: Wellbutrin [place] 00 XL) "Do Not Crush" Bupropion 2015-0 No Notes: Memori a 1-20 (Same as: l 05:00: Wellbutrin [place] 00 XL) "Do Not Crush" Bupropion 2015-0 No Notes: Memori a 1-20 (Same as: l 05:00: Wellbutrin [place] 00 XL) "Do Not Crush" Bupropion 2015-0 No Notes: Memori a 1-20 (Same as: l 05:00: Wellbutrin [place] 00 XL) "Do Not Crush" Bupropion 0 No Notes: Memori a 1-20 (Same as: l 05:00: Wellbutrin [place] 00 XL) "Do Not Crush" Bupropion 2015-0 No Notes: Memori a 1-20 (Same as: l 05:00: Wellbutrin [place] 00 XL) "Do Not Crush" Bupropion 2015-0 No Notes: Memori a 1-20 (Same as: l 05:00: Wellbutrin [place] 00 XL) "Do Not Crush" Bupropion 2015-0 No Notes: Memori a 1-20 (Same as: l 05:00: Wellbutrin [place] 00 XL) "Do Not Crush" Bupropion 2015-0 No Notes: Memori a 1-20 (Same as: l 05:00: Wellbutrin [place] 00 XL) "Do Not Crush" Bupropion 2015-0 No Notes: Memori a 1-20 (Same as: l 05:00: Wellbutrin [place] 00 XL) "Do Not Crush" Bupropion No Notes: Memori a 1-20 (Same as: l 05:00: Wellbutrin [place] 00 XL) "Do Not Crush" Bupropion No Notes: Memori a 1-20 (Same as: l 05:00: Wellbutrin [place] 00 XL) "Do Not Crush" Reglan No Notes: Memoria 1-20 (Same as: l 04:26: Reglan) Dav 00 Acetaminoph No Notes: Do M emoria en 1-20 not exceed l 04:26: 4 gm/day. Dav 00 (Same as: Tylenol) Ondansetron No Notes: [place] vane 1-20 (Same as: l 04:26: Zofran) Dav 00 MEDICATION WASTE Product Size: 4 mg Product Wasted: ___ mg Morphine No Notes: Memoria 1-20 (Same l 04:26: as:MORPhin Dav 00 e Sulfate) Phenergan No Notes: Do Mem oria 1-20 not give l 04:26: IV push. Dav 00 (Same as: Phenergan) Reglan No Notes: Memoria 1-20 (Same as: l 04:26: Reglan) [place] 00 Acetaminoph No Notes: Do M emoria en 1-20 not exceed l 04:26: 4 gm/day. Dav 00 (Same as: Tylenol) Ondansetron No Notes: Henok vane 1-20 (Same as: l 04:26: Zofran) [place] 00 MEDICATION WASTE Product Size: 4 mg Product Wasted: ___ mg Morphine No Notes: Memoria 1-20 (Same l 04:26: as:MORPhin [place] 00 e Sulfate) Phenergan No Notes: Do Mem oria 1-20 not give l 04:26: IV push. [place] 00 (Same as: Phenergan) Reglan No [...] Notes: Memoria 1-20 (Same l 04:26: as:MORPhin [place] 00 e Sulfate) Phenergan No Notes: Do Mem oria 1-20 not give l 04:26: IV push. Dav 00 (Same as: Phenergan) Reglan No Notes: Memoria 1-20 (Same as: l 04:26: Reglan) Dav Acetaminoph No Notes: Do M emoria en 1-20 not exceed l 04:26: 4 gm/day. [place] 00 (Same as: Tylenol) Ondansetron No Notes: Henok vane 1-20 (Same as: l 04:26: Zofran) Dav 00 MEDICATION WASTE Product Size: 4 mg Product Wasted: ___ mg Morphine No Notes: Memoria 1-20 (Same l 04:26: as:MORPhin [place] 00 e Sulfate) Phenergan No Notes: Do Mem oria 1-20 not give l 04:26: IV push. Dav 00 (Same as: Phenergan) Reglan No Notes: Memoria 1-20 (Same as: l 04:26: Reglan) Dav 00 Acetaminoph No Notes: Do M emoria en 1-20 not exceed l 04:26: 4 gm/day. [place] 00 (Same as: Tylenol) Ondansetron No Notes: Henok vane 1-20 (Same as: l 04:26: Zofran) Dav 00 MEDICATION WASTE Product Size: 4 mg Product Wasted: ___ mg Morphine No Notes: Memoria 1-20 (Same l 04:26: as:MORPhin [place] 00 e Sulfate) Phenergan No Notes: Do Mem oria 1-20 not give l 04:26: IV push. [place] 00 (Same as: Phenergan) Reglan No Notes: Memoria 1-20 (Same as: l 04:26: Reglan) [place] Acetaminoph No Notes: Do M emoria en 1-20 not exceed l 04:26: 4 gm/day. Dav (Same as: Tylenol) Ondansetron No Notes: Henok vane 1-20 (Same as: l 04:26: Zofran) Dav 00 MEDICATION WASTE Product Size: 4 mg Product Wasted: ___ mg Morphine No Notes: Memoria 1-20 (Same l 04:26: as:MORPhin [place] 00 e Sulfate) Phenergan No Notes: Do Mem oria 1-20 not give l 04:26: IV push. [place] (Same as: Phenergan) Reglan No Notes: Memoria 1-20 (Same as: l 04:26: Reglan) [place] Acetaminoph No Notes: Do M emoria [...] Memoria 1-20 (Same as: l 04:26: Reglan) [place] 00 Acetaminoph No Notes: Do M emoria en 1-20 not exceed l 04:26: 4 gm/day. [place] 00 (Same as: Tylenol) Ondansetron No [...] Memoria 1-20 (Same as: l 04:26: Reglan) [place] 00 Acetaminoph No Notes: Do M [...] 1-20 not give l 04:26: IV push. [place] 00 (Same as: Phenergan) Reglan No Notes: Memoria 1-20 (Same as: l 04:26: Reglan) [place] 00 Acetaminoph No Notes: Do M emoria en 1-20 not exceed l 04:26: 4 gm/day. [place] 00 (Same as: Tylenol) Ondansetron No Notes: Henok vane 1-20 (Same as: l 04:26: Zofran) Dav 00 MEDICATION WASTE Product Size: 4 mg Product Wasted: ___ mg Morphine No Notes: Memoria 1-20 (Same l 04:26: as:MORPhin [place] 00 e Sulfate) Phenergan No Notes: Do Mem oria 1-20 not give l 04:26: IV push. [place] 00 (Same as: Phenergan) Reglan No Notes: Memoria 1-20 (Same as: l 04:26: Reglan) [place] 00 Acetaminoph No Notes: Do M emoria en 1-20 not exceed l 04:26: 4 gm/day. [place] 00 (Same as: Tylenol) Ondansetron No Notes: Henok vane 1-20 (Same as: l 04:26: Zofran) Dav 00 MEDICATION WASTE Product Size: 4 mg Product Wasted: ___ mg Morphine No Notes: Memoria 1-20 (Same l 04:26: as:MORPhin [place] 00 e Sulfate) Phenergan No Notes: Do Mem oria 1-20 not give l 04:26: IV push. Dav 00 (Same as: Phenergan) Reglan No Notes: Memoria 1-20 (Same as: l 04:26: Reglan) [place] Acetaminoph No Notes: Do M emoria en 1-20 not exceed l 04:26: 4 gm/day. Dav 00 (Same as: Tylenol) Ondansetron No Notes: Henok vane 1-20 (Same as: l 04:26: Zofran) Dav 00 MEDICATION WASTE Product Size: 4 mg Product Wasted: ___ mg Morphine No Notes: Memoria 1-20 (Same l 04:26: as:MORPhin [place] 00 e Sulfate) Phenergan No Notes: Do Mem oria 1-20 not give l 04:26: IV push. [place] 00 (Same as: Phenergan) Reglan No [...] Notes: Memoria 1-20 (Same l 04:26: as:MORPhin [place] 00 e Sulfate) Phenergan No Notes: Do Mem oria 1-20 not give l 04:26: IV push. Dav 00 (Same as: Phenergan) Reglan No Notes: Memoria 1-20 (Same as: l 04:26: Reglan) [place] Acetaminoph No Notes: Do M emoria en 1-20 not exceed l 04:26: 4 gm/day. [place] 00 (Same as: Tylenol) Reglan No Notes: Memoria 1-20 (Same as: l 04:26: Reglan) Dav 00 Acetaminoph No Notes: Do M emoria en 1-20 not exceed l 04:26: 4 gm/day. Dav 00 (Same as: Tylenol) Ondansetron No Notes: Henok vane 1-20 (Same as: l 04:26: Zofran) [place] 00 MEDICATION WASTE Product Size: 4 mg Product Wasted: ___ mg Morphine No Notes: Memoria 1-20 (Same l 04:26: as:MORPhin [place] 00 e Sulfate) Phenergan No Notes: Do Mem oria 1-20 not give l 04:26: IV push. [place] 00 (Same as: Phenergan) Ondansetron No Notes: Henok vane 1-20 (Same as: l 04:26: Zofran) Dav 00 MEDICATION WASTE Product Size: 4 mg Product Wasted: ___ mg Morphine No Notes: Memoria 1-20 (Same l 04:26: as:MORPhin [place] 00 e Sulfate) Phenergan No Notes: Do Mem oria 1-20 not give l 04:26: IV push. [place] 00 (Same as: Phenergan) Reglan No Notes: Memoria 1-20 (Same as: l 04:26: Reglan) Dav 00 Acetaminoph No Notes: Do M emoria en 1-20 not exceed l 04:26: 4 gm/day. [place] 00 (Same as: Tylenol) Ondansetron No Notes: Henok vane 1-20 (Same as: l 04:26: Zofran) Dav 00 MEDICATION WASTE Product Size: 4 mg Product Wasted: ___ mg Morphine No Notes: Memoria 1-20 (Same l 04:26: as:MORPhin [place] 00 e Sulfate) Phenergan No Notes: Do Mem oria 1-20 not give l 04:26: IV push. Dav 00 (Same as: Phenergan) Reglan No Notes: Memoria 1-20 (Same as: l 04:26: Reglan) [place] 00 Acetaminoph No Notes: Do M emoria en 1-20 not exceed l 04:26: 4 gm/day. Dav 00 (Same as: Tylenol) Ondansetron No Notes: Henok vane 1-20 (Same as: l 04:26: Zofran) Dav 00 MEDICATION WASTE Product Size: 4 mg Product Wasted: ___ mg Morphine No Notes: Memoria 1-20 (Same l 04:26: as:MORPhin [place] 00 e Sulfate) Phenergan No Notes: Do Mem oria 1-20 not give l 04:26: IV push. [place] 00 (Same as: Phenergan) Zofran ODT No Notes: Memor ia 1-20 (Same as: l 04:25: Zofran Dav 00 ODT) Zofran ODT No Notes: Memor ia 1-20 (Same as: l 04:25: Zofran [place] 00 ODT) Zofran ODT No Notes: Memor ia 1-20 (Same as: l 04:25: Zofran [place] 00 ODT) Zofran ODT No Notes: Memor ia 1-20 (Same as: l 04:25: Zofran [place] 00 ODT) Zofran ODT No Notes: Memor ia 1-20 (Same as: l 04:25: Zofran [place] 00 ODT) Zofran ODT No Notes: Memor ia 1-20 (Same as: l 04:25: Zofran [place] 00 ODT) Zofran ODT No Notes: Memor ia 1-20 (Same as: l 04:25: Zofran [place] 00 ODT) Zofran ODT 0 No Notes: Memor ia 1-20 (Same as: l 04:25: Zofran [place] 00 ODT) Zofran ODT 0 No Notes: Memor ia 1-20 (Same as: l 04:25: Zofran Dav 00 ODT) Zofran ODT 0 No Notes: Memor ia 1-20 (Same as: l 04:25: Zofran [place] 00 ODT) Zofran ODT 0 No Notes: [...] ia 1-20 (Same as: l 04:25: Zofran [place] 00 ODT) Zofran ODT 0 No Notes: [...] Take 30 min before meals 200 ACTUAT 0 No Notes: Memor ia Albuterol 1-20 Same as: l 0.09 04:23: Ventolin [place] MG/ACTUAT 00 HFA Metered Dose Inhaler [Proventil] 200 ACTUAT No Notes: Memor ia Albuterol 1-20 Same as: l 0.09 04:23: Ventolin [place] MG/ACTUAT 00 HFA Metered Dose Inhaler [Proventil] 200 ACTUAT No Notes: Memor ia Albuterol 1-20 Same as: l 0.09 04:23: Ventolin [place] MG/ACTUAT 00 HFA Metered Dose Inhaler [Proventil] 200 ACTUAT No Notes: Memor ia Albuterol 1-20 Same as: l 0.09 04:23: Ventolin [place] MG/ACTUAT 00 HFA Metered Dose Inhaler [...] 1-20 Same as: l 0.09 04:23: Ventolin [place] MG/ACTUAT 00 HFA Metered Dose Inhaler [...] 1-20 Same as: l 0.09 04:23: Ventolin [place] MG/ACTUAT 00 HFA Metered Dose Inhaler [...] 1-20 Same as: l 0.09 04:23: Ventolin [place] MG/ACTUAT 00 HFA Metered Dose Inhaler [Proventil] 200 ACTUAT 0 No Notes: Memor ia Albuterol 1-20 Same as: l 0.09 04:23: Ventolin [place] MG/ACTUAT 00 HFA Metered Dose Inhaler [Proventil] Melatonin No Denisa Ambrosiooria 1mg -Pt's 1-20 n 1mg l own 04:19: -Pt's own [place] medication* 00 medication * , 1 [...] n 1mg l own 04:19: -Pt's own [place] medication* 00 medication * , 1 mg, 1 tab, Drug form: MISC, Route: PO, ONCE, 09/17/15 22:19:00, Stop date: 09/17/15 22:19:00 Melatonin No Melatoni Memoria 1mg -Pt's 1-20 n 1mg l own 04:19: -Pt's own [place] medication* 00 medication * , 1 mg, 1 tab, Drug form: MISC, Route: PO, ONCE, 09/17/15 22:19:00, Stop date: 09/17/15 22:19:00 Melatonin No Melatoni Memoria 1mg -Pt's 1-20 n 1mg l own 04:19: -Pt's own [place] medication* 00 medication * , 1 mg, 1 tab, Drug form: MISC, Route: PO, ONCE, 09/17/15 22:19:00, Stop date: 09/17/15 22:19:00 Melatonin No Melatoni Memoria 1mg -Pt's 1-20 n 1mg l own 04:19: -Pt's own [place] medication* 00 medication * , 1 mg, 1 tab, Drug form: MISC, Route: PO, ONCE, 09/17/15 22:19:00, Stop date: 09/17/15 22:19:00 Melatonin No Melatoni Memoria 1mg -Pt's 1-20 n 1mg l own 04:19: -Pt's own [place] medication* 00 medication * , 1 mg, 1 tab, Drug form: MISC, Route: PO, ONCE, 09/17/15 22:19:00, Stop date: 09/17/15 22:19:00 Melatonin No Melatoni Memoria 1mg -Pt's 1-20 n 1mg l own 04:19: -Pt's own [place] medication* 00 medication * , 1 [...] n 1mg l own 04:19: -Pt's own [place] medication* 00 medication * , 1 mg, 1 tab, Drug form: MISC, Route: PO, ONCE, 09/17/15 22:19:00, Stop date: 09/17/15 22:19:00 Melatonin No Melatoni Memoria 1mg -Pt's 1-20 n 1mg l own 04:19: -Pt's own [place] medication* 00 medication * , 1 mg, 1 tab, Drug form: MISC, Route: PO, ONCE, 09/17/15 22:19:00, Stop date: 09/17/15 22:19:00 Melatonin No Melatoni Memoria 1mg -Pt's 1-20 n 1mg l own 04:19: -Pt's own [place] medication* 00 medication * , 1 mg, 1 tab, Drug form: MISC, Route: PO, ONCE, 09/17/15 22:19:00, Stop date: 09/17/15 22:19:00 Melatonin No Melatoni Memoria 1mg -Pt's 1-20 n 1mg l own 04:19: -Pt's own [place] medication* 00 medication * , 1 mg, 1 tab, Drug form: MISC, Route: PO, ONCE, 09/17/15 22:19:00, Stop date: 09/17/15 22:19:00 Jere 2015- No 80 mg, Memori a 1-20 Route: PO, l 04:12: ONCE, [place] 00 Dosing Weight 160.909, kg, Start date: 09/17/15 22:12:00, Stop date: 09/17/15 22:12:00 Strattera 2016-0 No 80 mg, Memori a 1-20 Route: PO, l 04:12: ONCE, [place] 00 Dosing Weight 160.909, kg, Start date: 09/17/15 22:12:00, Stop date: 09/17/15 22:12:00 Strattera 2016-0 No 80 mg, Memori a 1-20 Route: PO, l 04:12: ONCE, [place] 00 Dosing Weight 160.909, kg, Start date: 09/17/15 22:12:00, Stop date: 09/17/15 22:12:00 Strattera 2016-0 No 80 mg, Memori a 1-20 Route: PO, l 04:12: ONCE, [place] Dosing Weight 160.909, kg, Start date: 09/17/15 22:12:00, Stop date: 09/17/15 22:12:00 Strattera 2016-0 No 80 mg, Memori a 1-20 Route: PO, l 04:12: ONCE, [place] 00 Dosing Weight 160.909, kg, Start date: 09/17/15 22:12:00, Stop date: 09/17/15 22:12:00 Strattera 2016-0 No 80 mg, Memori a 1-20 Route: PO, l 04:12: ONCE, [place] 00 Dosing Weight 160.909, kg, Start [...] a 1-20 Route: PO, l 04:12: ONCE, [place] Dosing Weight 160.909, kg, Start date: 09/17/15 22:12:00, Stop date: 09/17/15 22:12:00 Strattera 2016-0 No 80 mg, Memori a 1-20 Route: PO, l 04:12: ONCE, [place] Dosing Weight 160.909, kg, Start date: 09/17/15 22:12:00, Stop date: 09/17/15 22:12:00 Strattera 2016-0 No 80 mg, Memori a 1-20 Route: PO, l 04:12: ONCE, [place] 00 Dosing Weight 160.909, kg, Start date: 09/17/15 22:12:00, Stop date: 09/17/15 22:12:00 Strattera 2016-0 No 80 mg, Memori a 1-20 Route: PO, l 04:12: ONCE, [place] 00 Dosing Weight 160.909, kg, Start date: 09/17/15 22:12:00, Stop date: 09/17/15 22:12:00 Strattera 2016-0 No 80 mg, Memori a 1-20 Route: PO, l 04:12: ONCE, [place] 00 Dosing Weight 160.909, kg, Start date: 09/17/15 22:12:00, Stop date: 09/17/15 22:12:00 Strattera 2016-0 No 80 mg, Memori a 1-20 Route: PO, l 04:12: ONCE, [place] 00 Dosing Weight 160.909, kg, Start date: 09/17/15 22:12:00, Stop date: 09/17/15 22:12:00 Strattera 2016-0 No 80 mg, Memori a 1-20 Route: PO, l 04:12: ONCE, [place] 00 Dosing Weight 160.909, kg, Start [...] 04:11: as:LaMICta Brigida nn 00 l) Melatonin No 1 mg, Memoria 1-20 [...] INHALATION l 0.09 04:10: , QID, PRN [place] MG/ACTUAT 00 as needed Metered for Dose wheezing, Inhaler 0 [Proventil] Refill(s) 200 ACTUAT Yes 2 puff, Henok vane Albuterol 1-20 INHALATION l 0.09 04:10: , QID, PRN [place] MG/ACTUAT 00 as needed Metered for Dose wheezing, Inhaler 0 [Proventil] Refill(s) 200 ACTUAT Yes 2 puff, Henok vane Albuterol 1-20 INHALATION l 0.09 04:10: , QID, PRN Dav MG/ACTUAT 00 as needed Metered for Dose wheezing, Inhaler 0 [Proventil] Refill(s) 200 ACTUAT Yes 2 puff, Henok vane Albuterol 1-20 INHALATION l 0.09 04:10: , QID, PRN [place] MG/ACTUAT 00 as needed Metered for Dose wheezing, Inhaler 0 [Proventil] Refill(s) 200 ACTUAT 2016-0 Yes 2 puff, Henok vane Albuterol 1-20 INHALATION l 0.09 04:10: , QID, PRN [place] MG/ACTUAT 00 as needed Metered for Dose wheezing, Inhaler 0 [Proventil] Refill(s) 200 ACTUAT 20160 Yes 2 puff, Henok vane Albuterol 1-20 INHALATION l 0.09 04:10: , QID, PRN [place] MG/ACTUAT 00 as needed Metered for Dose wheezing, Inhaler 0 [Proventil] Refill(s) 200 ACTUAT 20160 Yes 2 puff, Henok vane Albuterol 1-20 INHALATION l 0.09 04:10: , QID, PRN [place] MG/ACTUAT 00 as needed Metered for Dose wheezing, Inhaler 0 [Proventil] Refill(s) 200 ACTUAT 20160 Yes 2 puff, Henok vane Albuterol 1-20 INHALATION l 0.09 04:10: , QID, PRN Dav MG/ACTUAT 00 as needed Metered for Dose wheezing, Inhaler 0 [Proventil] Refill(s) 200 ACTUAT 20160 Yes 2 puff, Henok vane Albuterol 1-20 INHALATION l 0.09 04:10: , QID, PRN [place] MG/ACTUAT 00 as needed Metered for Dose wheezing, Inhaler 0 [Proventil] Refill(s) 200 ACTUAT 20160 Yes 2 puff, Henok vane Albuterol 1-20 INHALATION l 0.09 04:10: , QID, PRN Dav MG/ACTUAT 00 as needed Metered for Dose wheezing, Inhaler 0 [Proventil] Refill(s) 200 ACTUAT 20160 Yes 2 puff, Henok vane Albuterol 1-20 INHALATION l 0.09 04:10: , QID, PRN [place] MG/ACTUAT 00 as needed Metered for Dose wheezing, Inhaler 0 [Proventil] Refill(s) 200 ACTUAT 20160 Yes 2 puff, Henok vane Albuterol 1-20 INHALATION l 0.09 04:10: , QID, PRN [place] MG/ACTUAT 00 as needed Metered for [...] INHALATION l 0.09 04:10: , QID, PRN [place] MG/ACTUAT 00 as needed Metered for Dose wheezing, Inhaler 0 [Proventil] Refill(s) 200 ACTUAT Yes 2 puff, Henok vane Albuterol 1-20 INHALATION l 0.09 04:10: , QID, PRN Dav MG/ACTUAT 00 as needed Metered for Dose wheezing, Inhaler 0 [Proventil] Refill(s) multivitami Yes 2 tab, Henok vane n 1-20 CHEW, BID, l 04:08: 0 [place] 00 Refill(s) multivitami Yes 2 tab, Henok vane n 1-20 CHEW, BID, l 04:08: 0 Dav 00 Refill(s) multivitami Yes 2 tab, Henok vane n 1-20 CHEW, BID, l 04:08: 0 [place] 00 Refill(s) multivitami Yes 2 tab, Henok vane n 1-20 CHEW, BID, l 04:08: 0 [place] 00 Refill(s) multivitami Yes 2 tab, Henok [...] n 1-20 CHEW, BID, l 04:08: 0 [place] 00 Refill(s) multivitami 20160 Yes 2 tab, Henok vane n 1-20 CHEW, BID, l 04:08: 0 [facility] 00 Refill(s) multivitami 20160 Yes 2 tab, Henok vane n 1-20 CHEW, BID, l 04:08: 0 [place] 00 Refill(s) multivitami 20160 Yes 2 tab, Henok vane n 1-20 CHEW, BID, l 04:08: 0 [place] 00 Refill(s) multivitami 20160 Yes 2 tab, Henok vane n 1-20 CHEW, BID, l 04:08: 0 [place] 00 Refill(s) multivitami 20160 Yes 2 tab, Henok vane n 1-20 CHEW, BID, l 04:08: 0 [place] 00 Refill(s) multivitami 20160 Yes 2 tab, Henok vane n 1-20 CHEW, BID, l 04:08: 0 [place] 00 Refill(s) multivitami 20160 Yes 2 tab, Henok vane n 1-20 CHEW, BID, l 04:08: 0 [place] 00 Refill(s) multivitami 20160 Yes 2 tab, Henok vane n 1-20 CHEW, BID, l 04:08: 0 [place] 00 Refill(s) Ondansetron 20160 Yes 8 mg [...] 00 Nausea & Vomiting, 0 Refill(s) buPROPion 2015-0 Yes 300 mg = 1 Me moria [...] Memoria 1-20 (Same as: l 03:49: Reglan) Reglan No Notes: Memoria 1-20 (Same as: l 03:49: Reglan) Reglan No Notes: Memoria 1-20 (Same as: l 03:49: Reglan) Dav Reglan No Notes: Memoria 1-20 (Same as: l 03:49: Reglan) [place] 00 Reglan No Notes: Memoria 1-20 (Same as: l 03:49: Reglan) Dav Reglan No Notes: Memoria 1-20 (Same as: l 03:49: Reglan) [place] 00 Reglan No Notes: Memoria 1-20 (Same as: l 03:49: Reglan) Dav 00 Reglan No Notes: Memoria 1-20 (Same as: l 03:49: Reglan) [place] 00 Reglan No Notes: Memoria 1-20 (Same as: l 03:49: Reglan) Dav Reglan No Notes: Memoria 1-20 (Same as: l 03:49: Reglan) Dav Reglan No Notes: Memoria 1-20 (Same as: l 03:49: Reglan) Dav Reglan No Notes: Memoria 1-20 (Same as: l 03:49: Reglan) [place] Reglan No Notes: Memoria 1-20 (Same as: l 03:49: Reglan) [place] Reglan No Notes: Memoria 1-20 (Same as: l 03:49: Reglan) Dav Reglan No Notes: Memoria 1-20 (Same as: l 03:49: Reglan) Dav Reglan No Notes: Memoria 1-20 (Same as: l 03:49: Reglan) Dav Reglan No Notes: Memoria 1-20 (Same as: l 03:49: Reglan) [place] Ondansetron No Notes: Henok vane 4 MG [...] 0.9% 1-20 (Same as: l 00:07: BD [place] 00 Posiflush) Ondansetron No Notes: Henok vane 4 MG 1-20 (Same as: l Disintegrat 00:07: Zofran Herm kailash ing Tablet 00 ODT) Saline No Notes: Memoria Flush 0.9% 1-20 (Same as: l 00:07: BD [place] 00 Posiflush) Ondansetron No Notes: Henok vane 4 MG 1-20 (Same as: l Disintegrat 00:07: Zofran Herm kailash ing Tablet 00 ODT) Saline No Notes: Memoria Flush 0.9% 1-20 (Same as: l 00:07: BD [place] 00 Posiflush) Ondansetron No Notes: Henok [...] 0.9% 1-20 (Same as: l 00:07: BD [place] 00 Posiflush) Ondansetron No Notes: Henok vane 4 MG 1-20 (Same as: l Disintegrat 00:07: Zofran Herm kailash ing Tablet 00 ODT) Saline No Notes: Memoria Flush 0.9% 1-20 (Same as: l 00:07: BD [place] 00 Posiflush) Ondansetron No Notes: Henok [...] 0.9% 1-20 (Same as: l 00:07: BD [place] 00 Posiflush) Ondansetron No Notes: Henok [...] 0.9% 1-20 (Same as: l 00:07: BD [place] 00 Posiflush) Ondansetron No Notes: Henok vane 4 MG 1-20 (Same as: l Disintegrat 00:07: Zofran Herm kailash ing Tablet 00 ODT) Saline No Notes: Memoria Flush 0.9% 1-20 (Same as: l 00:07: BD [place] 00 Posiflush) Ondansetron No Notes: Henok vane 4 MG 1-20 (Same as: l Disintegrat 00:07: Zofran Herm kailash ing Tablet 00 ODT) Saline No Notes: [facility] Flush 0.9% 1-20 (Same as: l 00:07: BD [place] 00 Posiflush) Ondansetron No Notes: Henok vane 4 MG 1-20 (Same as: l Disintegrat 00:07: Zofran Herm kailash ing Tablet 00 ODT) Saline No Notes: [facility] Flush 0.9% 1-20 (Same as: l 00:07: BD [place] 00 Posiflush) Ondansetron No Notes: Henok [...] # l / 22:06: 60 mL, 0 [place] Hydrocodone 00 Refill(s) Bitartrate 0.667 MG/ML [...] # l / 22:06: 60 mL, 0 [place] Hydrocodone 00 Refill(s) Bitartrate 0.667 MG/ML [...] # l / 22:06: 60 mL, 0 [place] Hydrocodone 00 Refill(s) Bitartrate 0.667 MG/ML [...] # l / 22:06: 60 mL, 0 [place] Hydrocodone 00 Refill(s) Bitartrate 0.667 MG/ML [...] # l / 22:06: 60 mL, 0 [place] Hydrocodone 00 Refill(s) Bitartrate 0.667 MG/ML [...] # l / 22:06: 60 mL, 0 [place] Hydrocodone 00 Refill(s) Bitartrate 0.667 MG/ML [...] # l / 22:06: 60 mL, 0 [place] Hydrocodone 00 Refill(s) Bitartrate 0.667 MG/ML [...] # l / 22:06: 60 mL, 0 [place] Hydrocodone 00 Refill(s) Bitartrate 0.667 MG/ML [...] # l / 22:06: 60 mL, 0 [place] Hydrocodone 00 Refill(s) Bitartrate 0.667 MG/ML [...] # l / 22:06: 60 mL, 0 [place] Hydrocodone 00 Refill(s) Bitartrate 0.667 MG/ML [...] Memoria 2-28 Route: l 18:38: IVP, Drug [place] 00 form: INJ, ONCE, Dosing Weight 162.273, kg, Priority: STAT, Start date: 08/26/15 12:38:00, Stop date: 08/26/15 12:38:00 Morphine 2014- No 6 mg, Memoria 2-28 Route: l 18:38: IVP, Drug [place] 00 form: INJ, ONCE, Dosing Weight 162.273, kg, Priority: STAT, Start date: 08/26/15 12:38:00, Stop date: 08/26/15 12:38:00 Morphine 2014- No 6 mg, [facility] 2-28 Route: l 18:38: IVP, Drug [place] 00 form: INJ, ONCE, Dosing Weight 162.273, kg, Priority: STAT, Start date: 08/26/15 12:38:00, Stop date: 08/26/15 12:38:00 Morphine 2014- No 6 mg, [facility] 2-28 Route: l 18:38: IVP, Drug [place] 00 form: INJ, ONCE, Dosing Weight 162.273, kg, Priority: STAT, Start date: 08/26/15 12:38:00, Stop date: 08/26/15 12:38:00 Morphine 2014-08 No 6 mg, [facility] 2-28 Route: l 18:38: IVP, Drug [place] 00 form: INJ, ONCE, Dosing Weight 162.273, kg, Priority: STAT, Start date: 08/26/15 12:38:00, Stop date: 08/26/15 12:38:00 Morphine 2014- No 6 mg, [facility] 2-28 Route: l 18:38: IVP, Drug [place] 00 form: INJ, ONCE, Dosing Weight 162.273, kg, Priority: STAT, Start date: 08/26/15 12:38:00, Stop date: 08/26/15 12:38:00 Morphine 2014- No 6 mg, [facility] 2-28 Route: l 18:38: IVP, Drug [place] 00 form: INJ, ONCE, Dosing Weight [...] [facility]oria 2-28 Route: l 18:38: IVP, Drug [place] 00 form: INJ, ONCE, Dosing Weight 162.273, kg, Priority: STAT, Start date: 08/26/15 12:38:00, Stop date: 08/26/15 12:38:00 Morphine 2014- No 6 mg, [facility] 2-28 Route: l 18:38: IVP, Drug [place] 00 form: INJ, ONCE, Dosing Weight 162.273, kg, Priority: STAT, Start date: 08/26/15 12:38:00, Stop date: 08/26/15 12:38:00 Morphine 2014- No 6 mg, [facility] 2-28 Route: l 18:38: IVP, Drug [place] 00 form: INJ, ONCE, Dosing Weight 162.273, kg, Priority: STAT, Start date: 08/26/15 12:38:00, Stop date: 08/26/15 12:38:00 Morphine 2014- No 6 mg, [facility] 2-28 Route: l 18:38: IVP, Drug [place] 00 form: INJ, ONCE, Dosing Weight 162.273, kg, Priority: STAT, Start date: 08/26/15 12:38:00, Stop date: 08/26/15 12:38:00 Morphine 2014- No 6 mg, [facility] 2-28 Route: l 18:38: IVP, Drug [place] 00 form: INJ, ONCE, Dosing Weight 162.273, kg, Priority: STAT, Start date: 08/26/15 12:38:00, Stop date: 08/26/15 12:38:00 Zofran 2014- No 4 mg, [facility] 2-28 Route: l 18:37: IVP, Drug [place] 00 form: INJ, ONCE, Dosing Weight 162.273, kg, Priority: STAT, Start date: 08/26/15 12:37:00, Stop date: 08/26/15 12:37:00 Zofran 2014- No 4 mg, [facility] 2-28 Route: l 18:37: IVP, Drug [place] 00 form: INJ, ONCE, Dosing Weight 162.273, kg, Priority: STAT, Start date: 08/26/15 12:37:00, Stop date: 08/26/15 12:37:00 Zofran 2014- No 4 mg, [facility] 2-28 Route: l 18:37: IVP, Drug [place] 00 form: INJ, ONCE, Dosing Weight 162.273, kg, Priority: STAT, Start date: 08/26/15 12:37:00, Stop date: 08/26/15 12:37:00 Zofran 2014- No 4 mg, [facility] 2-28 Route: l 18:37: IVP, Drug [place] 00 form: INJ, ONCE, Dosing Weight 162.273, kg, Priority: STAT, Start date: 08/26/15 12:37:00, Stop date: 08/26/15 12:37:00 Zofran 2014-08 No 4 mg, [facility] 2-28 Route: l 18:37: IVP, Drug [place] 00 form: INJ, ONCE, Dosing Weight 162.273, kg, Priority: STAT, Start date: 08/26/15 12:37:00, Stop date: 08/26/15 12:37:00 Zofran 2014-08 No 4 mg, [facility] 2-28 Route: l 18:37: IVP, Drug [place] 00 form: INJ, ONCE, Dosing Weight 162.273, kg, Priority: STAT, Start date: 08/26/15 12:37:00, Stop date: 08/26/15 12:37:00 Zofran 2014-08 No 4 mg, [facility] 2-28 Route: l 18:37: IVP, Drug [place] 00 form: INJ, ONCE, Dosing Weight 162.273, kg, Priority: STAT, Start date: 08/26/15 12:37:00, Stop date: 08/26/15 12:37:00 Zofran 2014-08 No 4 mg, [facility] 2-28 Route: l 18:37: IVP, Drug [place] 00 form: INJ, ONCE, Dosing Weight 162.273, kg, Priority: STAT, Start date: 08/26/15 12:37:00, Stop date: 08/26/15 12:37:00 Zofran 2014-08 No 4 mg, [facility] 2-28 Route: l 18:37: IVP, Drug [place] 00 form: INJ, ONCE, Dosing Weight 162.273, kg, Priority: STAT, Start date: 08/26/15 12:37:00, Stop date: 08/26/15 12:37:00 Zofran 2014-08 No 4 mg, [facility] 2-28 Route: l 18:37: IVP, Drug [place] 00 form: INJ, ONCE, Dosing Weight [...] 12:37:00 Zofran 2014-08 No 4 mg, [facility] 2- Route: l 18:37: IVP, Drug [place] 00 form: INJ, ONCE, Dosing Weight 162.273, kg, Priority: STAT, Start date: 08/26/15 12:37:00, Stop date: 08/26/15 12:37:00 Zofran 2014-08 No 4 mg, [facility] 2-28 Route: l 18:37: IVP, Drug [place] 00 form: INJ, ONCE, Dosing Weight 162.273, kg, Priority: STAT, Start date: 08/26/15 12:37:00, Stop date: 08/26/15 12:37:00 Zofran 2014-08 No 4 mg, [facility] 2-28 Route: l 18:37: IVP, Drug [place] 00 form: INJ, ONCE, Dosing Weight 162.273, kg, Priority: STAT, Start date: 08/26/15 12:37:00, Stop date: 08/26/15 12:37:00 Zofran 2014-08 No 4 mg, [facility] 2-28 Route: l 18:37: IVP, Drug [place] 00 form: INJ, ONCE, Dosing Weight 162.273, kg, Priority: STAT, Start date: 08/26/15 12:37:00, Stop date: 08/26/15 12:37:00 Zofran No 4 mg, [facility] 2-28 Route: l [...] Chloride 2-28 1,000 l 0.154 16:47: ml/hr, [place] MEQ/ML 00 Infuse Injectable Over: 1 Solution Hour, Route: IV, ONCE, Priority: STAT, Dosing Weight 162.273 kg, Start date: 08/26/15 10:47:00, Duration: 1 doses or times, Stop date: 08/26/15 10:47:00 Sodium 2014-1 No 1,000 mL, [facility] a Chloride 2-28 1,000 l 0.154 16:47: ml/hr, [place] MEQ/ML 00 Infuse Injectable Over: 1 [...] Chloride 2-28 1,000 l 0.154 16:47: ml/hr, [place] MEQ/ML 00 Infuse Injectable Over: 1 Solution Hour, Route: IV, ONCE, Priority: STAT, Dosing Weight 162.273 kg, Start date: 08/26/15 10:47:00, Duration: 1 doses or times, Stop date: 08/26/15 10:47:00 Sodium 2014- No 1,000 mL, [facility] a Chloride 2-28 1,000 l 0.154 16:47: ml/hr, [place] MEQ/ML 00 Infuse Injectable Over: 1 Solution Hour, Route: IV, ONCE, Priority: STAT, Dosing Weight 162.273 kg, Start date: 08/26/15 10:47:00, Duration: 1 doses or times, Stop date: 08/26/15 10:47:00 Sodium 2014-1 No 1,000 mL, [facility] a Chloride 2-28 1,000 l 0.154 16:47: ml/hr, [place] MEQ/ML 00 Infuse Injectable Over: 1 Solution Hour, Route: IV, ONCE, Priority: STAT, Dosing Weight 162.273 kg, Start date: 08/26/15 10:47:00, Duration: 1 doses or times, Stop date: 08/26/15 10:47:00 Sodium 2014-1 No 1,000 mL, [facility] a Chloride 2-28 1,000 l 0.154 16:47: ml/hr, [place] MEQ/ML 00 Infuse Injectable Over: 1 Solution Hour, Route: IV, ONCE, Priority: STAT, Dosing Weight 162.273 kg, Start date: 08/26/15 10:47:00, Duration: 1 doses or times, Stop date: 08/26/15 10:47:00 Sodium 2014- No 1,000 mL, [facility] a Chloride 2-28 1,000 l 0.154 16:47: ml/hr, [place] MEQ/ML 00 Infuse Injectable Over: 1 Solution Hour, Route: IV, ONCE, Priority: STAT, Dosing Weight 162.273 kg, Start date: 08/26/15 10:47:00, Duration: 1 doses or times, Stop date: 08/26/15 10:47:00 Sodium 2014- No 1,000 mL, [facility] a Chloride 2-28 1,000 l 0.154 16:47: ml/hr, [place] MEQ/ML 00 Infuse Injectable Over: 1 Solution Hour, Route: IV, ONCE, Priority: STAT, Dosing Weight 162.273 kg, Start date: 08/26/15 10:47:00, Duration: 1 doses or times, Stop date: 08/26/15 10:47:00 Sodium 2014- No 1,000 mL, [facility] a Chloride 2-28 1,000 l 0.154 16:47: ml/hr, [place] MEQ/ML 00 Infuse Injectable Over: 1 [...] Chloride 2-28 1,000 l 0.154 16:47: ml/hr, [place] MEQ/ML 00 Infuse Injectable Over: 1 Solution Hour, Route: IV, ONCE, Priority: STAT, Dosing Weight 162.273 kg, Start date: 08/26/15 10:47:00, Duration: 1 doses or times, Stop date: 08/26/15 10:47:00 Reglan 2014-08 No Notes: [facility] 2-19 (Same as: l 06:00: Reglan) [place] 00 Take 30 min before meals Reglan 2014-08 No Notes: [facility] 2-19 (Same as: l 06:00: Reglan) [place] 00 Take 30 min before meals Reglan 2014-08 No Notes: [facility] 2-19 (Same as: l 06:00: Reglan) [place] 00 Take 30 min before meals [...] [facility] 2-19 (Same as: l 06:00: Reglan) [place] 00 Take 30 min before meals Reglan 2014-08 No Notes: [facility] 2-19 (Same as: l 06:00: Reglan) [place] 00 Take 30 min before meals Reglan 2014-08 No Notes: [facility] 2-19 (Same as: l 06:00: Reglan) [place] 00 Take 30 min before meals Reglan 2014-08 No Notes: [facility] 2-19 (Same as: l 06:00: Reglan) [place] 00 Take 30 min before meals Reglan 2014-08 No Notes: [facility] 2-19 (Same as: l 06:00: Reglan) [place] 00 Take 30 min before meals Reglan 2014-08 No Notes: [facility] 2-19 (Same as: l 06:00: Reglan) [place] 00 Take 30 min before meals Reglan 2014-08 No Notes: [facility] 2-19 (Same as: l 06:00: Reglan) [place] 00 Take 30 min before meals Reglan 2014-08 No Notes: [facility] 2-19 (Same as: l 06:00: Reglan) [place] 00 Take 30 min before meals Reglan 2014-08 No Notes: [facility] 2-19 (Same as: l 06:00: Reglan) [place] 00 Take 30 min before meals Reglan 2014-08 No Notes: [facility] 2-19 (Same as: l 06:00: Reglan) [place] 00 Take 30 min before meals Reglan 2014-08 No Notes: [facility] 2-19 (Same as: l 06:00: Reglan) [place] 00 Take 30 min before meals Pepcid 2014-08 No Notes: [facility] 2-19 (Same as: l 03:00: Pepcid) [place] 00 Pepcid 2014-08 No Notes: [facility] 2-19 (Same as: l 03:00: Pepcid) [place] 00 Pepcid 2014-08 No Notes: [facility] 2-19 (Same as: l 03:00: Pepcid) [place] 00 Pepcid 2014-08 No Notes: [facility] 2-19 (Same as: l 03:00: Pepcid) [place] 00 Pepcid 2014-08 No Notes: [facility] 2-19 (Same as: l 03:00: Pepcid) [place] 00 Pepcid 2014-08 No Notes: [facility] 2-19 (Same as: l 03:00: Pepcid) [place] Pepcid 2014-08 No Notes: [facility] 2-19 (Same as: l 03:00: Pepcid) [place] Pepcid 2014-08 No Notes: [facility] 2-19 (Same as: l 03:00: Pepcid) [place] Pepcid 2014-08 No Notes: [facility] 2-19 (Same as: l 03:00: Pepcid) [facility] Pepcid 2014-08 No Notes: [facility] 2-19 (Same as: l 03:00: Pepcid) [place] Pepcid 2014-08 No Notes: [facility] 2-19 (Same as: l 03:00: Pepcid) [facility] Pepcid 2014-08 No Notes: [facility] 2-19 (Same as: l 03:00: Pepcid) [place] Pepcid 2014-08 No Notes: [facility] 2-19 (Same as: l 03:00: Pepcid) [place] 00 Pepcid 2014-08 No Notes: [facility] 2-19 (Same as: l 03:00: Pepcid) [facility] Pepcid 2014-08 No Notes: [facility] 2-19 (Same as: l 03:00: Pepcid) [place] Pepcid 2014-08 No Notes: [facility] 2-19 (Same as: l 03:00: Pepcid) [place] Pepcid 2014-08 No Notes: [facility] 2-19 (Same as: l 03:00: Pepcid) [place] Acetaminoph 2014-08 No Notes: Do M emoria [...] not exceed l / 17:48: 4gm/day of [place] Hydrocodone 00 acetaminop Bitartrate hen. (Same 0.667 MG/ML as: Oral Zolvit) Solution Acetaminoph 2014-08 No Notes: Do M emoria en 20 MG/ML 2-18 not exceed l / 17:48: 4gm/day of [place] Hydrocodone 00 acetaminop Bitartrate hen. (Same [...] not exceed l / 17:48: 4gm/day of [place] Hydrocodone 00 acetaminop Bitartrate hen. (Same [...] not exceed l / 17:48: 4gm/day of [place] Hydrocodone 00 acetaminop Bitartrate hen. (Same 0.667 MG/ML as: Oral Zolvit) Solution Acetaminoph 2014-08 No Notes: Do M emoria en 20 MG/ML 2-18 not exceed l / 17:48: 4gm/day of [place] Hydrocodone 00 acetaminop Bitartrate hen. (Same 0.667 MG/ML as: Oral Zolvit) Solution Wellbutrin 2014-08 No Notes: [facility] ia 2-18 (Same As: l 15:00: Wellbutrin [place] 00 ) Prinivil 2014-08 No Notes: [facility] 2-18 (Same as: l 15:00: Prinivil, [place] 00 Zestril) hydrochloro 2014-08 No Notes: [...] ia 2-18 (Same As: l 15:00: Wellbutrin [place] 00 ) Prinivil 2014-08 No Notes: [facility] 2-18 (Same as: l 15:00: Prinivil, [place] 00 Zestril) hydrochloro 2014-08 No Notes: [...] PO, l MG / 15:00: Drug Form: [place] Lisinopril 00 TAB, 20 MG Oral Dosing Tablet Weight 168.636, kg, Daily, Start date: 08/16/15 9:00:00, Duration: 30 day, Stop date: 09/14/15 9:00:00 Wellbutrin 2014-08 No Notes: [facility] 2-18 (Same As: l 15:00: Wellbutrin [place] 00 ) Prinivil 2014-08 No Notes: [facility] 2-18 (Same as: l 15:00: Prinivil, [place] 00 Zestril) hydrochloro 2014-08 No Notes: [...] ia 2-18 (Same As: l 15:00: Wellbutrin [place] 00 ) ivil 2014-08 No Notes: [facility] [...] PO, l MG / 15:00: Drug Form: [place] Lisinopril 00 TAB, 20 MG Oral [...] PO, l MG / 15:00: Drug Form: [place] Lisinopril 00 TAB, 20 MG Oral Dosing Tablet Weight 168.636, kg, Daily, Start date: 08/16/15 9:00:00, Duration: 30 day, Stop date: 09/14/15 9:00:00 Wellbutrin 2014-08 No Notes: [facility] 2-18 (Same As: l 15:00: Wellbutrin [place] 00 ) Prinivil 2014-08 No Notes: [facility] 2-18 (Same as: l 15:00: Prinivil, [place] 00 Zestril) hydrochloro 2014-08 No Notes: [...] [facility] 2-18 (Same as: l 15:00: Prinivil, [place] 00 Zestril) hydrochloro 2014-08 No Notes: Henok [...] PO, l MG / 15:00: Drug Form: [place] Lisinopril 00 TAB, 20 MG Oral [...] PO, l MG / 15:00: Drug Form: [place] Lisinopril 00 TAB, 20 MG Oral Dosing Tablet Weight 168.636, kg, Daily, Start date: 08/16/15 9:00:00, Duration: 30 day, Stop date: 09/14/15 9:00:00 Wellbutrin 2014-08 No Notes: [facility] 2-18 (Same As: l 15:00: Wellbutrin [place] 00 ) Prinivil 2014-08 No Notes: [facility] 2-18 (Same as: l 15:00: Prinivil, [place] 00 Zestril) hydrochloro 2014-08 No Notes: Henok vane thiazide 25 2-18 (Same as: l mg oral 15:00: Hydrodiuri Herm kailash tablet 00 l) With food. pneumococca 2014-08 No Notes: Henok vane l capsular 2-18 (Same as: l polysacchar 15:00: Pneumovax H ermann ojhn type 1 23) vaccine / Refrigerat pneumococca [...] ia 2-18 (Same As: l 15:00: Wellbutrin [place] 00 ) Prinivil 2014-08 No Notes: [facility] 2-18 (Same as: l 15:00: Prinivil, [place] 00 Zestril) hydrochloro 2014-08 No Notes: [...] PO, l MG / 15:00: Drug Form: [place] Lisinopril 00 TAB, 20 MG Oral Dosing Tablet Weight 168.636, kg, Daily, Start date: 08/16/15 9:00:00, Duration: 30 day, Stop date: 09/14/15 9:00:00 Wellbutrin 2014-08 No Notes: [facility] 2-18 (Same As: l 15:00: Wellbutrin [place] ) Prinivil 2014-08 No Notes: [facility] 2-18 [...] PO, l MG / 15:00: Drug Form: [place] Lisinopril 00 TAB, 20 MG Oral Dosing Tablet Weight 168.636, kg, Daily, Start date: 08/16/15 9:00:00, Duration: 30 day, Stop date: 09/14/15 9:00:00 Wellbutrin 2014-08 No Notes: [facility] ia 2-18 (Same As: l 15:00: Wellbutrin [place] 00 ) Prinivil 2014-08 No Notes: [facility] 2-18 (Same as: l 15:00: Prinivil, [place] 00 Zestril) hydrochloro 2014-08 No Notes: [...] PO, l MG / 15:00: Drug Form: [place] Lisinopril 00 TAB, 20 MG Oral [...] ia 2-18 (Same As: l 15:00: Wellbutrin [place] 00 ) Prinivil 2014-08 No Notes: [facility] 2-18 (Same as: l 15:00: Prinivil, [place] 00 Zestril) hydrochloro 2014-08 No Notes: [...] [facility] 2-18 (Same as: l 15:00: Prinivil, [place] 00 Zestril) hydrochloro 2014-08 No Notes: Henok avne thiazide 25 2-18 (Same as: l mg [...] ia 2-18 (Same As: l 15:00: Wellbutrin [place] 00 ) Prinivil 2014-08 No Notes: [facility] 2-18 (Same as: l 15:00: Prinivil, [place] 00 Zestril) hydrochloro 2014-08 No Notes: [...] PO, l MG / 15:00: Drug Form: [place] Lisinopril 00 TAB, 20 MG Oral [...] ia 2-18 (Same as: l 05:00: Lovenox) [place] Enoxaparin 2014-08 No Notes: [facility] 2-18 (Same as: l 05:00: Lovenox) [place] Enoxaparin 2014-08 No Notes: [facility] 2-18 (Same as: l 05:00: Lovenox) [place] Enoxaparin 2014-08 No Notes: [facility] 2-18 (Same as: l 05:00: Lovenox) [place] Enoxaparin 2014-08 No Notes: [facility] 2-18 (Same as: l 05:00: Lovenox) [place] Enoxaparin 2014-08 No Notes: [facility] 2-18 (Same as: l 05:00: Lovenox) [place] Enoxaparin 2014-08 No Notes: [facility] 2-18 (Same as: l 05:00: Lovenox) [place] Enoxaparin 2014-08 No Notes: [facility] 2-18 (Same as: l 05:00: Lovenox) [place] 00 Enoxaparin 2014-08 No Notes: [facility] 2-18 (Same as: l 05:00: Lovenox) [place] Enoxaparin 2014-08 No Notes: [facility] 2-18 (Same as: l 05:00: Lovenox) [place] Enoxaparin 2014-08 No Notes: [facility] 2-18 (Same as: l 05:00: Lovenox) [place] Enoxaparin 2014-08 No Notes: [facility] 2-18 (Same as: l 05:00: Lovenox) [place] 00 Enoxaparin 2014-08 No Notes: [facility] 2-18 (Same as: l 05:00: Lovenox) [place] Enoxaparin 2014-08 No Notes: [facility] 2-18 (Same as: l 05:00: Lovenox) [place] Enoxaparin 2014-08 No Notes: [facility] 2-18 (Same as: l 05:00: Lovenox) [place] Enoxaparin 2014-08 No Notes: [facility] 2-18 (Same as: l 05:00: Lovenox) [place] Enoxaparin 2014-08 No Notes: [facility] 2-18 (Same as: l 05:00: Lovenox) [place] Lamictal 2014-08 No Notes: [facility] 2-18 (Same l 03:00: as:LaMICta [place] l) Jere 2014-08 No 80 mg, Mem[facility] a 2-18 Route: PO, l 03:00: Drug form: [place] 00 CAP, Bedtime, Dosing Weight 168.636, kg, Start date: 08/15/15 21:00:00, Duration: 30 day, Stop date: 09/13/15 21:00:00 Famotidine 2014-08 No Notes: [facility] 2-18 (Same as: l 03:00: Pepcid) [place] 00 Can be dilute in 5-10cc NS IVP: Slow IV push over at least 2 minutes. Lamictal 2014-08 No Notes: [facility] 2-18 (Same l 03:00: as:LaMICta [place] 00 l) Strattera 2014-08 No 80 mg, [facility] a 2-18 Route: PO, l 03:00: Drug form: [place] 00 CAP, Bedtime, Dosing Weight 168.636, kg, Start date: 08/15/15 21:00:00, Duration: 30 day, Stop date: 09/13/15 21:00:00 Famotidine 2014-08 No Notes: [facility] 2-18 (Same as: l 03:00: Pepcid) [place] 00 Can be dilute in 5-10cc NS IVP: Slow IV push over at least 2 minutes. Lamictal 2014-08 No Notes: [facility] 2-18 (Same l 03:00: as:LaMICta [place] 00 l) Strattera 2014-08 No 80 [...] 2-18 Route: PO, l 03:00: Drug form: [place] 00 CAP, Bedtime, Dosing Weight 168.636, kg, Start date: 08/15/15 21:00:00, Duration: 30 day, Stop date: 09/13/15 21:00:00 Famotidine 2014-08 No Notes: [facility] 2-18 (Same as: l 03:00: Pepcid) [place] 00 Can be dilute in 5-10cc NS IVP: Slow IV push over at least 2 minutes. Lamictal 2014-08 No Notes: [facility] 2-18 (Same l 03:00: as:LaMICta [place] 00 l) Strattera 2014-08 No 80 mg, Mem[facility] a 2-18 Route: PO, l 03:00: Drug form: [place] 00 CAP, Bedtime, Dosing Weight 168.636, kg, Start date: 08/15/15 21:00:00, Duration: 30 day, Stop date: 09/13/15 21:00:00 Famotidine 2014-08 No Notes: [facility] ia 2-18 (Same as: l 03:00: Pepcid) [place] 00 Can be dilute in 5-10cc NS IVP: Slow IV push over at least 2 minutes. Lamictal 2014-08 No Notes: [facility] 2-18 (Same l 03:00: as:LaMICta [place] 00 l) Strattera 2014-08 No 80 mg, [facility] a 2-18 Route: PO, l 03:00: Drug form: [place] 00 CAP, Bedtime, Dosing Weight 168.636, kg, Start date: 08/15/15 21:00:00, Duration: 30 day, Stop date: 09/13/15 21:00:00 Famotidine 2014-08 No Notes: [facility] ia 2-18 (Same as: l 03:00: Pepcid) [place] 00 Can be dilute in 5-10cc NS IVP: Slow IV push over at least 2 minutes. Lamictal 2014-08 No Notes: [facility] 2-18 (Same l 03:00: as:LaMICta [place] 00 l) Strattera 2014-08 No 80 mg, [facility] a 2-18 Route: PO, l 03:00: Drug form: [place] 00 CAP, Bedtime, Dosing Weight 168.636, kg, Start date: 08/15/15 21:00:00, Duration: 30 day, Stop date: 09/13/15 21:00:00 Famotidine 2014-08 No Notes: [facility] ia 2-18 (Same as: l 03:00: Pepcid) [place] 00 Can be dilute in 5-10cc NS IVP: Slow IV push over at least 2 minutes. Lamictal 2014-08 No Notes: [facility] 2-18 (Same l 03:00: as:LaMICta [place] 00 l) Strattera 2014-08 No 80 mg, Mem[facility] a 2-18 Route: PO, l 03:00: Drug form: [place] 00 CAP, Bedtime, Dosing Weight 168.636, kg, Start date: 08/15/15 21:00:00, Duration: 30 day, Stop date: 09/13/15 21:00:00 Famotidine 2014-08 No Notes: [facility] ia 2-18 (Same as: l 03:00: Pepcid) [place] 00 Can be dilute in 5-10cc NS IVP: Slow IV push over at least 2 minutes. Lamictal 2014-08 No Notes: [facility] 2-18 (Same l 03:00: as:LaMICta [place] 00 l) ttera 2014-08 No 80 mg, [facility] a 2-18 Route: PO, l 03:00: Drug form: [place] 00 CAP, Bedtime, Dosing Weight 168.636, kg, Start date: 08/15/15 21:00:00, Duration: 30 day, Stop date: 09/13/15 21:00:00 Famotidine 2014-08 No Notes: Mem[facility] ia 2-18 (Same as: l 03:00: Pepcid) [place] 00 Can be dilute in 5-10cc NS IVP: Slow IV push over at least 2 minutes. Lamictal 2014-08 No Notes: [facility] 2-18 (Same l 03:00: as:LaMICta [place] 00 l) ttera 2014-08 No 80 mg, Memori a 2-18 Route: PO, l 03:00: Drug form: [place] 00 CAP, Bedtime, Dosing Weight 168.636, kg, Start date: 08/15/15 21:00:00, Duration: 30 day, Stop date: 09/13/15 21:00:00 Famotidine 2014-08 No Notes: [facility] ia 2-18 (Same as: l 03:00: Pepcid) [place] 00 Can be dilute in 5-10cc NS IVP: Slow IV push over at least 2 minutes. Lamictal 2014-08 No Notes: [facility] 2-18 (Same l 03:00: as:LaMICta [place] 00 l) Strattera 2014-08 No 80 mg, Memori a 2-18 Route: PO, l 03:00: Drug form: [place] 00 CAP, Bedtime, Dosing Weight 168.636, kg, Start date: 08/15/15 21:00:00, Duration: 30 day, Stop date: 09/13/15 21:00:00 Famotidine 2014-08 No Notes: [facility] ia 2-18 (Same as: l 03:00: Pepcid) [place] 00 Can be dilute in 5-10cc [...] 2-18 Route: PO, l 03:00: Drug form: [place] 00 CAP, Bedtime, Dosing Weight 168.636, [...] ia 2-18 (Same as: l 03:00: Pepcid) [place] 00 Can be dilute in 5-10cc NS IVP: Slow IV push over at least 2 minutes. Lamictal 2014-08 No Notes: [facility] 2-18 (Same l 03:00: as:LaMICta [place] 00 l) Strattera 2014-08 No 80 [...] 2-18 Route: PO, l 03:00: Drug form: [place] 00 CAP, Bedtime, Dosing Weight 168.636, kg, Start date: 08/15/15 21:00:00, Duration: 30 day, Stop date: 09/13/15 21:00:00 Famotidine 2014-08 No Notes: Mem[facility] ia 2-18 (Same as: l 03:00: Pepcid) [place] 00 Can be dilute in 5-10cc NS IVP: Slow IV push over at least 2 minutes. Famotidine 2014-08 No Notes: Memor ia 2-18 (Same as: l 03:00: Pepcid) [place] 00 Can be dilute in 5-10cc [...] john 2-17 (Same as: l 22:00: Reglan) [place] 00 Metoclopram 2014-08 No Notes: Henok vane [...] 2-17 Enteral l Oral 19:00: feeds may [place] Suspension 00 interfere [Carafate] with the absorption of this medication . Shake well. Take 1 hr before or 2 hrs after antacids, dairy pdt, minerals & meals. (Same As: Carafate) Sucralfate 2014-08 No Notes: Memor ia 100 MG/ML 2-17 Enteral l Oral 19:00: feeds may [place] Suspension 00 interfere [Carafate] with the absorption of this medication . Shake well. Take 1 hr before or 2 hrs after antacids, dairy pdt, minerals & meals. (Same As: Carafate) Sucralfate 2014-08 No Notes: [facility] ia 100 MG/ML 2-17 Enteral l Oral 19:00: feeds may [place] Suspension 00 interfere [Carafate] with the absorption of this medication . Shake well. Take 1 hr before or 2 hrs after antacids, dairy pdt, minerals & meals. (Same As: Carafate) Sucralfate 2014-08 No Notes: [facility] 100 MG/ML 2-17 Enteral l Oral 19:00: feeds may [place] Suspension 00 interfere [Carafate] with the [...] 2-17 Enteral l Oral 19:00: feeds may [place] Suspension 00 interfere [Carafate] with the absorption of this medication . Shake well. Take 1 hr before or 2 hrs after antacids, dairy pdt, minerals & meals. (Same As: Carafate) Sucralfate 2014-08 No Notes: [facility] 100 MG/ML 2-17 Enteral l Oral 19:00: feeds may [place] Suspension 00 interfere [Carafate] with the [...] 2-17 Enteral l Oral 19:00: feeds may [place] Suspension 00 interfere [Carafate] with the [...] 2-17 Enteral l Oral 19:00: feeds may [place] Suspension 00 interfere [Carafate] with the absorption of this medication . Shake well. Take 1 hr before or 2 hrs after antacids, dairy pdt, minerals & meals. (Same As: Carafate) Sucralfate 2014-08 No Notes: [facility] 100 MG/ML 2-17 Enteral l Oral 19:00: feeds may [place] Suspension 00 interfere [Carafate] with the absorption of this medication . Shake well. Take 1 hr before or 2 hrs after antacids, dairy pdt, minerals & meals. (Same As: Carafate) Sucralfate 2014-08 No Notes: [facility] [place] 100 MG/ML 2-17 Enteral l Oral 19:00: feeds may [place] Suspension 00 interfere [Carafate] with the [...] 2-17 Enteral l Oral 19:00: feeds may [place] Suspension 00 interfere [Carafate] with the absorption of this medication . Shake well. Take 1 hr before or 2 hrs after antacids, dairy pdt, minerals & meals. (Same As: Carafate) Sucralfate 2014-08 No Notes: [facility] [place] 100 MG/ML 2-17 Enteral l Oral 19:00: feeds may [place] Suspension 00 interfere [Carafate] with the absorption of this medication . Shake well. Take 1 hr before or 2 hrs after antacids, dairy pdt, minerals & meals. (Same As: Carafate) Ondansetron 2014- No Notes: [place] 2-17 [...] 2-17 Rate: 125 l 0.0014 16:34: ml/hr, [place] MEQ/ML / 00 Infuse Potassium over: 8 Chloride hr, Route: 0.004 IV, Dosing MEQ/ML / Weight Sodium 168.864 Chloride kg, Total 0.103 Volume: MEQ/ML / 1,000, Sodium Start Lactate date: 0.028 08/15/15 MEQ/ML 10:34:00, Injectable Duration: Solution 30 day, Stop date: 09/14/15 10:33:00 Hydromorpho 2014-08 No 0.5 mg, Mem oria ne 2-17 0.5 mL, l 16:34: Route: IV, [place] 00 Drug form: INJ, Q3H, Dosing [...] Phenergan) Acetaminoph 2014-08 No Notes: Do M christopherria en 2-17 not exceed l 16:34: 4 gm/day. Dav 00 (Same as: Tylenol) Metoprolol 2014-08 No Notes: [place] 2-17 (Same as: l 16:34: Lopressor) Push over 2 minutes Calcium 2014-08 No 1,000 mL, [place] [place] Chloride 2-17 Rate: 125 l 0.0014 16:34: ml/hr, [place] MEQ/ML / 00 Infuse Potassium over: 8 Chloride hr, Route: 0.004 IV, Dosing MEQ/ML / Weight Sodium 168.864 Chloride kg, Total 0.103 Volume: MEQ/ML / 1,000, Sodium Start Lactate date: 0.028 08/15/15 MEQ/ML 10:34:00, Injectable Duration: Solution 30 day, Stop date: 09/14/15 10:33:00 Hydromorpho 2014-08 No 0.5 mg, Mem oria ne 2-17 0.5 mL, l 16:34: Route: IV, [place] 00 Drug form: INJ, Q3H, Dosing [...] 2-17 Rate: 125 l 0.0014 16:34: ml/hr, [place] MEQ/ML / 00 Infuse Potassium over: 8 Chloride hr, Route: 0.004 IV, Dosing MEQ/ML / Weight Sodium 168.864 Chloride kg, Total 0.103 Volume: MEQ/ML / 1,000, Sodium Start Lactate date: 0.028 08/15/15 MEQ/ML 10:34:00, Injectable Duration: Solution 30 day, Stop date: 09/14/15 10:33:00 Hydromorpho 2014-08 No 0.5 mg, Mem oria ne 2-17 0.5 mL, l 16:34: Route: IV, [place] 00 Drug form: INJ, Q3H, Dosing [...] ia 2-17 (Same as: l 16:34: Lopressor) [place] 00 Push over 2 minutes Calcium 2014-08 [...] 2-17 0.5 mL, l 16:34: Route: IV, [place] 00 Drug form: INJ, Q3H, Dosing [...] 2-17 not exceed l 16:34: 4 gm/day. [place] 00 (Same as: Tylenol) Metoprolol 2014-08 No Notes: Memor ia 2-17 (Same as: l 16:34: Lopressor) [place] 00 Push over 2 minutes Calcium 2014-08 No 1,000 mL, [facility] ia Chloride 2-17 Rate: 125 l 0.0014 16:34: ml/hr, [place] MEQ/ML / 00 Infuse Potassium over: [...] Phenergan) Acetaminoph 2014-08 No Notes: Do M christopherria en 2-17 not exceed l 16:34: 4 gm/day. (Same as: Tylenol) Metoprolol 2014-08 No Notes: Memor ia 2-17 (Same as: l 16:34: Lopressor) Push over 2 minutes Calcium 2014-08 No 1,000 mL, [facility] ia Chloride 2-17 Rate: 125 l 0.0014 16:34: ml/hr, [place] MEQ/ML / 00 Infuse Potassium over: [...] 2-17 not exceed l 16:34: 4 gm/day. [place] 00 (Same as: Tylenol) Metoprolol 2014-08 No Notes: Memor ia 2-17 (Same as: l 16:34: Lopressor) Push over 2 minutes Calcium 2014-08 No 1,000 mL, [facility] Chloride 2-17 Rate: 125 l 0.0014 16:34: ml/hr, [place] MEQ/ML / 00 Infuse Potassium over: 8 Chloride hr, Route: 0.004 IV, Dosing MEQ/ML / Weight Sodium 168.864 Chloride kg, Total 0.103 Volume: MEQ/ML / 1,000, Sodium Start Lactate date: 0.028 08/15/15 MEQ/ML 10:34:00, Injectable Duration: Solution 30 day, Stop date: 09/14/15 10:33:00 Hydromorpho 2014-08 No 0.5 mg, Mem oria ne 2-17 0.5 mL, l 16:34: Route: IV, [place] 00 Drug form: INJ, Q3H, Dosing [...] 2-17 not exceed l 16:34: 4 gm/day. [place] 00 (Same as: Tylenol) Metoprolol 2014-08 [...] ia 2-17 (Same as: l 16:34: Lopressor) [place] 00 Push over 2 minutes Calcium 2014-08 No 1,000 mL, [facility] Chloride 2-17 Rate: 125 l 0.0014 16:34: ml/hr, [place] MEQ/ML / 00 Infuse Potassium over: [...] 2-17 not exceed l 16:34: 4 gm/day. [place] 00 (Same as: Tylenol) Metoprolol 2014-08 [...] Memor ia 2-17 Route: l 16:23: IVP, [place] 00 Q2MIN, Dosing Weight 168.864, kg, [...] vane 2-17 Route: l 16:23: IVP, PRN, [place] 00 Dosing Weight 168.864, kg, PRN Benzodiaze pine Reversal, Initial dose, Start date: 08/15/15 10:23:00, Duration: 30 day, Stop date: 09/14/15 10:22:00 Fentanyl 2014-08 No 25 Memoria 2-17 microgram, l 16:23: Route: [place] 00 IVP, Q5Min, Dosing Weight 168.864, kg, PRN Pain Score 4-6, Start date: 08/15/15 10:23:00, Duration: 4 doses or times, Stop date: Limited # of times Hydromorpho 2014-08 No 0.5 mg, Mem oria ne 2-17 Route: l 16:23: IVP, [place] 00 Q5Min, Dosing Weight 168.864, kg, [...] 25 Memoria 2-17 microgram, l 16:23: Route: [place] 00 IVP, Q5Min, Dosing Weight 168.864, kg, PRN Pain Score 4-6, Start date: 08/15/15 10:23:00, Duration: 4 doses or times, Stop date: Limited # of times Hydromorpho 2014-08 No 0.5 mg, Mem oria ne 2-17 Route: l 16:23: IVP, [place] 00 Q5Min, Dosing Weight 168.864, kg, PRN Pain Score 7-10, Start date: 08/15/15 10:23:00, Duration: 4 doses or times, Stop date: Limited # of times Naloxone 2014-08 No 0.04 mg, Mem[facility] ia 2-17 Route: l 16:23: IVP, [place] 00 Q2MIN, Dosing Weight 168.864, kg, PRN Narcotic Reversal, Start date: 08/15/15 10:23:00, Duration: 8 doses or times, Stop date: Limited # of times Ondansetron 2014-08 No 4 mg, Mem[facility] ia 2-17 Route: l 16:23: IVP, ONCE, [place] 00 Dosing Weight 168.864, kg, PRN Nausea & Vomiting, Start date: 08/15/15 10:23:00 Promethazin 2014-08 No 6.25 mg, Me moria e 2-17 Route: l 16:23: IVPB, [place] 00 ONCE, Dosing Weight 168.864, kg, PRN Nausea & Vomiting, Start date: 08/15/15 10:23:00 Flumazenil 2014-08 No 0.2 mg, Hen[place] vane 2-17 Route: l 16:23: IVP, PRN, [place] 00 Dosing Weight 168.864, kg, PRN [...] oria ne 2-17 Route: l 16:23: IVP, [place] 00 Q5Min, Dosing Weight 168.864, kg, PRN Pain Score 7-10, Start date: 08/15/15 10:23:00, Duration: 4 doses or times, Stop date: Limited # of times Naloxone 2014-08 No 0.04 mg, [facility] 2-17 Route: l 16:23: IVP, [place] 00 Q2MIN, Dosing Weight 168.864, kg, PRN Narcotic Reversal, Start date: 08/15/15 10:23:00, Duration: 8 doses or times, Stop date: Limited # of times Ondansetron 2014-08 No 4 mg, [facility] 2-17 Route: l 16:23: IVP, ONCE, [place] 00 Dosing Weight 168.864, kg, PRN Nausea & Vomiting, Start date: 08/15/15 10:23:00 Promethazin 2014-08 No 6.25 mg, Me moria e 2-17 Route: l 16:23: IVPB, [place] 00 ONCE, Dosing Weight 168.864, kg, PRN Nausea & Vomiting, Start date: 08/15/15 10:23:00 Flumazenil 2014-08 No 0.2 mg, [place] vane 2-17 Route: l 16:23: IVP, PRN, [place] 00 Dosing Weight 168.864, kg, PRN Benzodiaze pine Reversal, Initial dose, Start date: 08/15/15 10:23:00, Duration: 30 day, Stop date: 09/14/15 10:22:00 Fentanyl 2014-08 No 25 Memoria 2-17 microgram, l 16:23: Route: [place] 00 IVP, Q5Min, Dosing Weight 168.864, kg, PRN Pain Score 4-6, Start date: 08/15/15 10:23:00, Duration: 4 doses or times, Stop date: Limited # of times Hydromorpho 2014-08 No 0.5 mg, Mem oria ne -17 Route: l 16:23: IVP, [place] 00 Q5Min, Dosing Weight 168.864, kg, PRN Pain Score 7-10, Start date: 08/15/15 10:23:00, Duration: 4 doses or times, Stop date: Limited # of times Naloxone 2014-08 No 0.04 mg, [facility] 2-17 Route: l 16:23: IVP, [place] 00 Q2MIN, Dosing Weight 168.864, kg, PRN Narcotic Reversal, Start date: 08/15/15 10:23:00, Duration: 8 doses or times, Stop date: Limited # of times Ondansetron 2014-08 No 4 mg, [facility] 2-17 Route: l 16:23: IVP, ONCE, [place] 00 Dosing Weight 168.864, kg, PRN [...] oria ne 17 Route: l 16:23: IVP, [place] 00 Q5Min, Dosing Weight 168.864, kg, PRN Pain Score 7-10, Start date: 08/15/15 10:23:00, Duration: 4 doses or times, Stop date: Limited # of times Naloxone 2014-08 No 0.04 mg, [facility] 2-17 Route: l 16:23: IVP, [place] 00 Q2MIN, Dosing Weight 168.864, kg, PRN Narcotic Reversal, Start date: 08/15/15 10:23:00, Duration: 8 doses or times, Stop date: Limited # of times Ondansetron 2014-08 No 4 mg, [facility] 2-17 Route: l 16:23: IVP, ONCE, [place] 00 Dosing Weight 168.864, kg, PRN [...] 25 Memoria 2-17 microgram, l 16:23: Route: [place] 00 IVP, Q5Min, Dosing Weight 168.864, kg, PRN Pain Score 4-6, Start date: 08/15/15 10:23:00, Duration: 4 doses or times, Stop date: Limited # of times Hydromorpho 2014-08 No 0.5 mg, Mem oria ne 2-17 Route: l 16:23: IVP, [place] 00 Q5Min, Dosing Weight 168.864, kg, PRN Pain Score 7-10, Start date: 08/15/15 10:23:00, Duration: 4 doses or times, Stop date: Limited # of times Naloxone 2014-08 No 0.04 mg, [facility] 2-17 Route: l 16:23: IVP, [place] 00 Q2MIN, Dosing Weight 168.864, kg, PRN Narcotic Reversal, Start date: 08/15/15 10:23:00, Duration: 8 doses or times, Stop date: Limited # of times Ondansetron 2014-08 No 4 mg, [facility] 2-17 Route: l 16:23: IVP, ONCE, [place] 00 Dosing Weight 168.864, kg, PRN [...] 25 Memoria 2-17 microgram, l 16:23: Route: [place] 00 IVP, Q5Min, Dosing Weight 168.864, kg, PRN Pain Score 4-6, Start date: 08/15/15 10:23:00, Duration: 4 doses or times, Stop date: Limited # of times Hydromorpho 2014-08 No 0.5 mg, Mem oria ne 2-17 Route: l 16:23: IVP, [place] 00 Q5Min, Dosing Weight 168.864, kg, PRN Pain Score 7-10, Start date: 08/15/15 10:23:00, Duration: 4 doses or times, Stop date: Limited # of times Naloxone 2014-08 No 0.04 mg, [facility] 2-17 Route: l 16:23: IVP, [place] 00 Q2MIN, Dosing Weight 168.864, kg, [...] moria e 2-17 Route: l 16:23: IVPB, [place] 00 ONCE, Dosing Weight 168.864, kg, [...] oria ne 2-17 Route: l 16:23: IVP, [place] 00 Q5Min, Dosing Weight 168.864, kg, PRN Pain Score 7-10, Start date: 08/15/15 10:23:00, Duration: 4 doses or times, Stop date: Limited # of times Naloxone 2014-08 No 0.04 mg, [facility] 2-17 Route: l 16:23: IVP, [place] 00 Q2MIN, Dosing Weight 168.864, kg, [...] moria e 2-17 Route: l 16:23: IVPB, [place] 00 ONCE, Dosing Weight 168.864, kg, PRN Nausea & Vomiting, Start date: 08/15/15 10:23:00 Flumazenil 2014-08 No 0.2 mg, Hen[place] vane 2-17 Route: l 16:23: IVP, PRN, [place] 00 Dosing Weight 168.864, kg, PRN Benzodiaze pine Reversal, Initial dose, Start date: 08/15/15 10:23:00, Duration: 30 day, Stop date: 09/14/15 10:22:00 Fentanyl 2014-08 No 25 [facility] 2-17 microgram, l 16:23: Route: [place] 00 IVP, Q5Min, Dosing Weight 168.864, [...] moria e 2-17 Route: l 16:23: IVPB, [place] 00 ONCE, Dosing Weight 168.864, kg, PRN Nausea & Vomiting, Start date: 08/15/15 10:23:00 Flumazenil 2014-08 No 0.2 mg, [place] vane 2-17 Route: l 16:23: IVP, PRN, [place] 00 Dosing Weight 168.864, kg, PRN Benzodiaze pine Reversal, Initial dose, Start date: 08/15/15 10:23:00, Duration: 30 day, Stop date: 09/14/15 10:22:00 Fentanyl 2014- No 25 Mem[facility] 2-17 microgram, l 16:23: Route: [place] 00 IVP, Q5Min, Dosing Weight 168.864, [...] Memor ia 2-17 Route: l 16:23: IVP, [place] 00 Q2MIN, Dosing Weight 168.864, kg, PRN Narcotic Reversal, Start date: 08/15/15 10:23:00, Duration: 8 doses or times, Stop date: Limited # of times Ondansetron 2014-08 No 4 mg, [facility] 2-17 Route: l 16:23: IVP, ONCE, [place] 00 Dosing Weight 168.864, kg, PRN Nausea & Vomiting, Start date: 08/15/15 10:23:00 Promethazin 2014-08 No 6.25 mg, Me moria e 2-17 Route: l 16:23: IVPB, [place] 00 ONCE, Dosing Weight 168.864, kg, PRN Nausea & Vomiting, Start date: 08/15/15 10:23:00 Flumazenil 2014-08 No 0.2 mg, Hen[place] vane 2-17 Route: l 16:23: IVP, PRN, [place] 00 Dosing Weight 168.864, kg, PRN Benzodiaze pine Reversal, Initial dose, Start date: 08/15/15 10:23:00, Duration: 30 day, Stop date: 09/14/15 10:22:00 Fentanyl 2014-08 No 25 Mem[facility] 2-17 microgram, l 16:23: Route: [place] 00 IVP, Q5Min, Dosing Weight 168.864, kg, PRN Pain Score 4-6, Start date: 08/15/15 10:23:00, Duration: 4 doses or times, Stop date: Limited # of times Hydromorpho 2014-08 No 0.5 mg, Mem oria ne 2-17 Route: l 16:23: IVP, [place] 00 Q5Min, Dosing Weight 168.864, kg, PRN Pain Score 7-10, Start date: 08/15/15 10:23:00, Duration: 4 doses or times, Stop date: Limited # of times Naloxone 2014-08 No 0.04 mg, [facility] 2-17 Route: l 16:23: IVP, [place] 00 Q2MIN, Dosing Weight 168.864, kg, [...] moria e 2-17 Route: l 16:23: IVPB, [place] 00 ONCE, Dosing Weight 168.864, kg, PRN Nausea & Vomiting, Start date: 08/15/15 10:23:00 Flumazenil 2014-08 No 0.2 mg, [place] vane 2-17 Route: l 16:23: IVP, PRN, Dosing Weight 168.864, kg, PRN Benzodiaze pine Reversal, Initial dose, Start date: 08/15/15 10:23:00, Duration: 30 day, Stop date: 09/14/15 10:22:00 Fentanyl 2014-08 No 25 Mem[facility] 2-17 microgram, l 16:23: Route: [place] 00 IVP, Q5Min, Dosing Weight 168.864, [...] Memor ia 2-17 Route: l 16:23: IVP, [place] 00 Q2MIN, Dosing Weight 168.864, kg, [...] vane 2-17 Route: l 16:23: IVP, PRN, [place] 00 Dosing Weight 168.864, kg, PRN [...] oria ne 2-17 Route: l 16:23: IVP, [place] 00 Q5Min, Dosing Weight 168.864, kg, [...] oria ne 2-17 Route: l 16:23: IVP, 00 Q5Min, Dosing Weight 168.864, kg, PRN Pain Score 7-10, Start date: 08/15/15 10:23:00, Duration: 4 doses or times, Stop date: Limited # of times Naloxone 2014-08 No 0.04 mg, [facility] 2-17 Route: l 16:23: IVP, [place] 00 Q2MIN, Dosing Weight 168.864, kg, [...] 25 Memoria 2-17 microgram, l 16:23: Route: [place] 00 IVP, Q5Min, Dosing Weight 168.864, [...] Memor ia 2-17 Route: l 16:23: IVP, [place] 00 Q2MIN, Dosing Weight 168.864, kg, PRN Narcotic Reversal, Start date: 08/15/15 10:23:00, Duration: 8 doses or times, Stop date: Limited # of times Ondansetron 2014-08 No 4 mg, [facility] 2-17 Route: l 16:23: IVP, ONCE, [place] 00 Dosing Weight 168.864, kg, PRN [...] oria ne 2-17 Route: l 16:23: IVP, [place] 00 Q5Min, Dosing Weight 168.864, kg, PRN Pain Score 7-10, Start date: 08/15/15 10:23:00, Duration: 4 doses or times, Stop date: Limited # of times Naloxone 2014-08 No 0.04 mg, [facility] 2-17 Route: l 16:23: IVP, [place] 00 Q2MIN, Dosing Weight 168.864, kg, PRN Narcotic Reversal, Start date: 08/15/15 10:23:00, Duration: 8 doses or times, Stop date: Limited # of times Ondansetron 2014-08 No 4 mg, [facility] 2-17 Route: l 16:23: IVP, ONCE, [place] 00 Dosing Weight 168.864, kg, PRN Nausea & Vomiting, Start date: 08/15/15 10:23:00 Promethazin 2014-08 No 6.25 mg, Me moria e 2-17 Route: l 16:23: IVPB, [place] 00 ONCE, Dosing Weight 168.864, kg, PRN Nausea & Vomiting, Start date: 08/15/15 10:23:00 Flumazenil 2014-08 No 0.2 mg, Hen[place] vane 2-17 Route: l 16:23: IVP, PRN, [place] 00 Dosing Weight 168.864, kg, PRN Benzodiaze pine Reversal, Initial dose, Start date: 08/15/15 10:23:00, Duration: 30 day, Stop date: 09/14/15 10:22:00 Fentanyl 2014- No 25 [facility] 2-17 microgram, l 16:23: Route: [place] 00 IVP, Q5Min, Dosing Weight 168.864, kg, PRN Pain Score 4-6, Start date: 08/15/15 10:23:00, Duration: 4 doses or times, Stop date: Limited # of times Hydromorpho 2014-08 No 0.5 mg, Mem oria ne 2-17 Route: l 16:23: IVP, [place] 00 Q5Min, Dosing Weight 168.864, kg, [...] 2-17 Rate: 25 l 0.0014 13:59: ml/hr, [place] MEQ/ML / 00 Infuse Potassium over: 40 Chloride hr, Route: 0.004 IV, Dosing MEQ/ML / Weight 170 Sodium kg, Total Chloride Volume: 0.103 1,000, MEQ/ML / Start Sodium date: Lactate 08/15/15 0.028 7:59:00, MEQ/ML Duration: Injectable 30 day, Solution Stop date: 09/14/15 7:58:00 Calcium 2014-08 No 1,000 mL, Memor ia Chloride 2-17 Rate: 25 l 0.0014 13:59: ml/hr, [place] MEQ/ML / 00 Infuse Potassium over: 40 Chloride hr, Route: 0.004 IV, Dosing MEQ/ML / Weight 170 Sodium kg, Total Chloride Volume: 0.103 1,000, MEQ/ML / Start Sodium date: Lactate 08/15/15 0.028 7:59:00, MEQ/ML Duration: Injectable 30 day, Solution Stop date: 09/14/15 7:58:00 Calcium 2014-08 No 1,000 mL, Memor ia Chloride 2-17 Rate: 25 l 0.0014 13:59: ml/hr, [place] MEQ/ML / 00 Infuse Potassium over: [...] 2-17 Rate: 25 l 0.0014 13:59: ml/hr, [place] MEQ/ML / 00 Infuse Potassium over: 40 Chloride hr, Route: 0.004 IV, Dosing MEQ/ML / Weight 170 Sodium kg, Total Chloride Volume: 0.103 1,000, MEQ/ML / Start Sodium date: Lactate 08/15/15 0.028 7:59:00, MEQ/ML Duration: Injectable 30 day, Solution Stop date: 09/14/15 7:58:00 Calcium 2014-08 No 1,000 mL, Mem[facility] Chloride 2-17 Rate: 25 l 0.0014 13:59: ml/hr, [place] MEQ/ML / 00 Infuse Potassium over: [...] 2-17 Rate: 25 l 0.0014 13:59: ml/hr, [place] MEQ/ML / 00 Infuse Potassium over: 40 Chloride hr, Route: 0.004 IV, Dosing MEQ/ML / Weight 170 Sodium kg, Total Chloride Volume: 0.103 1,000, MEQ/ML / Start Sodium date: Lactate 08/15/15 0.028 7:59:00, MEQ/ML Duration: Injectable 30 day, Solution Stop date: 09/14/15 7:58:00 Calcium 2014-08 No 1,000 mL, [facility] Chloride 2-17 Rate: 25 l 0.0014 13:59: ml/hr, [place] MEQ/ML / 00 Infuse Potassium over: [...] 2-17 Rate: 25 l 0.0014 13:59: ml/hr, [place] MEQ/ML / 00 Infuse Potassium over: [...] HR 2014-08 No 1 patch, Memoria Scopolamine 10-16 Route: l 0.0139 12:47: TOP, Drug Garrett n MG/HR 00 Form: Transdermal ERFILM, Patch Dosing Weight 175.909, kg, ONCE, Start date: 08/15/15 6:47:00, Stop date: 08/15/15 6:47:00 Emend 2014-08 No Notes: Memoria 2-14 Same as: l 16:00: Emend [place] 00 restricted to the Hematology /Oncology service for high and moderate emetogenic regimen according to ASCO Guidelines [place] h Only for Chemothera py-Induced nausea & vomiting heparin 2014-08 No Notes: Memoria sodium, 2-14 porcine l porcine 16:00: heparin [place] 2500 UNT/ML 00 Injectable Solution Cefazolin 2014-08 No Notes: Memori a 2-14 Same as: l 16:00: Ancef [place] 00 Emend 2014-08 No Notes: [facility]oria 2-14 Same as: l 16:00: Emend [place] 00 restricted to the Hematology /Oncology service for high and moderate emetogenic regimen according to ASCO Guidelines [place] Only for Chemothera py-Induced nausea & vomiting heparin 2014-08 No Notes: [facility] sodium, 2-14 porcine l porcine 16:00: heparin [place] 2500 UNT/ML 00 Injectable Solution Cefazolin 2014-08 No Notes: Memori a 2-14 Same as: l 16:00: Ancef [place] 00 Emend 2014-08 No Notes: [facility]oria 2-14 Same as: l 16:00: Emend [place] 00 restricted to the Hematology /Oncology [...] sodium, 2-14 porcine l porcine 16:00: heparin [place] 2500 UNT/ML 00 Injectable Solution Cefazolin [...] sodium, 2-14 porcine l porcine 16:00: heparin [place] 2500 UNT/ML 00 Injectable Solution Cefazolin 2014-08 No Notes: Memori a 2-14 Same as: l 16:00: Ancef [place] 00 Emend 2014-08 No Notes: Memoria [...] Memoria 2-14 Same as: l 16:00: Emend [place] 00 restricted to the Hematology /Oncology service for high and moderate emetogenic regimen according to ASCO Guidelines [place] Only for Chemothera py-Induced nausea & vomiting heparin 2014-08 No Notes: [facility] sodium, 2-14 porcine l porcine 16:00: heparin [place] 2500 UNT/ML 00 Injectable Solution Cefazolin 2014-08 No Notes: Memori a 2-14 Same as: l 16:00: Ancef [place] 00 Emend 2014-08 No Notes: [facility] 2-14 Same as: l 16:00: Emend [place] 00 restricted to the Hematology /Oncology [...] Memoria 2-14 Same as: l 16:00: Emend [place] 00 restricted to the Hematology /Oncology service for high and moderate emetogenic regimen according to ASCO Guidelines [place] Only for Chemothera py-Induced nausea & vomiting heparin 2014-08 No Notes: [facility] sodium, 2-14 porcine l porcine 16:00: heparin [place] 2500 UNT/ML 00 Injectable Solution Cefazolin 2014-08 No Notes: Memori a 2-14 Same as: l 16:00: Ancef [place] 00 Emend 2014-08 No Notes: Memoria [...] Memoria 2-14 Same as: l 16:00: Emend [place] 00 restricted to the Hematology /Oncology service for high and moderate emetogenic regimen according to ASCO Guidelines [place] Only for Chemothera py-Induced nausea & vomiting heparin 2014-08 No Notes: [facility] sodium, 2-14 porcine l porcine 16:00: heparin [place] 2500 UNT/ML 00 Injectable Solution Cefazolin [...] sodium, 2-14 porcine l porcine 16:00: heparin [place] 2500 UNT/ML 00 Injectable Solution Cefazolin 2014-08 No Notes: Memori a 2-14 Same as: l 16:00: Ancef [place] 00 Emend 2014-08 No Notes: [facility]oria 2-14 Same as: l 16:00: Emend [place] 00 restricted to the Hematology /Oncology service for high and moderate emetogenic regimen according to ASCO Guidelines [place] Only for Chemothera py-Induced nausea & vomiting heparin 2014-08 No Notes: [facility] sodium, 2-14 porcine l porcine 16:00: heparin [place] 2500 UNT/ML 00 Injectable Solution Cefazolin 2014-08 No Notes: Memori a 2-14 Same as: l 16:00: Ancef [place] 00 Emend 2014-08 No Notes: [facility] 2-14 Same as: l 16:00: Emend [place] 00 restricted to the Hematology /Oncology [...] Memoria 2-14 Same as: l 16:00: Emend [place] 00 restricted to the Hematology /Oncology service for high and moderate emetogenic regimen according to ASCO Guidelines [place] Only for Chemothera py-Induced nausea & vomiting heparin 2014-08 No Notes: [facility] sodium, 2-14 porcine l porcine 16:00: heparin [place] 2500 UNT/ML 00 Injectable Solution Cefazolin 2014-08 No Notes: Memori a 2-14 Same as: l 16:00: Ancef [place] Emend 2014-08 No Notes: [facility]oria 2-14 Same as: l 16:00: Emend [place] 00 restricted to the Hematology /Oncology service for high and moderate emetogenic regimen according to ASCO Guidelines [place] Only for Chemothera py-Induced nausea & vomiting heparin 2014-08 No Notes: [facility] sodium, 2-14 porcine l porcine 16:00: heparin [place] 2500 UNT/ML 00 Injectable Solution Cefazolin 2014-08 No Notes: Memori a 2-14 Same as: l 16:00: Ancef [place] Omeprazole 2014-08 Yes 40 mg = 1 [...] 2-14 tab, PO, l tablet 15:44: Bedtime, [place] 00 PRN for insomnia, # 90 tab, 0 Refill(s) Depo-Curer Foam Rubber 2014-08 Yes 150 mg = 1 Memoria a 2-14 mL, IM, l Contracepti 15:44: q3mo, # 1 H ermann ve 150 00 mL, 0 mg/mL Refill(s) intramuscul ar suspension Hydrochloro 2014-08 Yes 1 tab, PO, [facility] thiazide 25 2-14 Daily, # l MG / 15:44: 30 tab, 0 [place] Lisinopril 00 Refill(s) 20 MG Oral Tablet Melatonin 2014-08 Yes 1 mg = 1 Me moria mg oral 2-14 tab, PO, l tablet 15:44: Bedtime, [place] 00 PRN for insomnia, # 90 tab, 0 Refill(s) Depo-Curer Foam Rubber 2014-08 Yes 150 mg = 1 [facility]oria a 2-14 mL, IM, l Contracepti 15:44: q3mo, # 1 H ermann ve 150 00 mL, 0 mg/mL Refill(s) intramuscul ar suspension Hydrochloro 2014-08 Yes 1 tab, PO, [facility] thiazide 25 2-14 Daily, # l MG / 15:44: 30 tab, 0 [place] Lisinopril 00 Refill(s) 20 MG Oral Tablet Melatonin 2014-08 Yes 1 mg = 1 Me moria mg oral 2-14 tab, PO, l tablet 15:44: Bedtime, [place] 00 PRN for insomnia, # 90 tab, 0 Refill(s) Depo-Curer Foam Rubber 2014-08 Yes 150 mg = 1 [facility] a 2-14 mL, IM, l Contracepti 15:44: q3mo, # 1 H ermann ve 150 00 mL, 0 mg/mL Refill(s) intramuscul ar suspension Hydrochloro 2014-08 Yes 1 tab, PO, [facility] thiazide 25 2-14 Daily, # l MG / 15:44: 30 tab, 0 [place] Lisinopril 00 Refill(s) 20 MG Oral Tablet Melatonin 2014-08 Yes 1 mg = 1 Me moria mg oral 2-14 tab, PO, l tablet 15:44: Bedtime, [place] 00 PRN for insomnia, # 90 tab, 0 Refill(s) Depo-Curer Foam Rubber 2014-08 Yes 150 mg = 1 [facility] a 2-14 mL, IM, l Contracepti 15:44: q3mo, # 1 H ermann ve 150 00 mL, 0 mg/mL Refill(s) intramuscul ar suspension Hydrochloro 2014-08 Yes 1 tab, PO, [facility] thiazide 25 2-14 Daily, # l MG / 15:44: 30 tab, 0 [place] Lisinopril 00 Refill(s) 20 MG Oral Tablet Melatonin 2014-08 Yes 1 mg = 1 Me moria mg oral 2-14 tab, PO, l tablet 15:44: Bedtime, [place] 00 PRN for insomnia, # 90 tab, 0 Refill(s) Depo-Curer Foam Rubber 2014-08 Yes 150 mg = 1 Memoria [...] for insomnia, # 90 tab, 0 Refill(s) Depo-Curer Foam Rubber 2014-08 Yes 150 mg = 1 Memoria a 2-14 mL, IM, l Contracepti 15:44: q3mo, # 1 H ermann ve 150 00 mL, 0 mg/mL Refill(s) intramuscul ar suspension Hydrochloro 2014-08 Yes 1 tab, PO, [facility]oria thiazide 25 2-14 Daily, # l MG / 15:44: 30 tab, 0 [place] Lisinopril 00 Refill(s) 20 MG Oral Tablet Melatonin 2014-08 Yes 1 mg = 1 Me moria mg oral 2-14 tab, PO, l tablet 15:44: Bedtime, [place] 00 PRN for insomnia, # 90 tab, 0 Refill(s) Depo-Curer Foam Rubber 2014-08 Yes 150 mg = 1 Memoria [...] for insomnia, # 90 tab, 0 Refill(s) Depo-Curer Foam Rubber 2014-08 Yes 150 mg = 1 [facility] a 2-14 mL, IM, l Contracepti 15:44: q3mo, # 1 H [place] ve 150 00 mL, 0 mg/mL Refill(s) intramuscul ar suspension Hydrochloro 2014-08 Yes 1 tab, PO, [facility] thiazide 25 2-14 Daily, # l MG / 15:44: 30 tab, 0 [place] Lisinopril 00 Refill(s) 20 MG Oral Tablet Melatonin 2014-08 Yes 1 mg = 1 Me moria mg oral 2-14 tab, PO, l tablet 15:44: Bedtime, [place] 00 PRN for insomnia, # 90 tab, 0 Refill(s) Depo-Curer Foam Rubber 2014-08 Yes 150 mg = 1 [facility] a 2-14 mL, IM, l Contracepti 15:44: q3mo, # 1 H [place] ve 150 00 mL, 0 mg/mL Refill(s) intramuscul ar suspension Hydrochloro 2014-08 Yes 1 tab, PO, [facility] thiazide 25 2-14 Daily, # l MG / 15:44: 30 tab, 0 [place] Lisinopril 00 Refill(s) 20 MG Oral Tablet Melatonin 2014-08 Yes 1 mg = 1 Me moria mg oral 2-14 tab, PO, l tablet 15:44: Bedtime, Dav 00 PRN for insomnia, # 90 tab, 0 Refill(s) Depo-Curer Foam Rubber 2014-08 Yes 150 mg = 1 Memoria a 2-14 mL, IM, l Contracepti 15:44: q3mo, # 1 H ermann ve 150 00 mL, 0 mg/mL Refill(s) intramuscul ar suspension Hydrochloro 2014-08 Yes 1 tab, PO, Memoria thiazide 25 2-14 Daily, # l MG / 15:44: 30 tab, 0 [place] Lisinopril 00 Refill(s) 20 MG Oral Tablet Melatonin 2014-08 Yes 1 mg = 1 Me moria mg oral 2-14 tab, PO, l tablet 15:44: Bedtime, [place] 00 PRN for insomnia, # 90 tab, 0 Refill(s) Depo-Curer Foam Rubber 2014-08 Yes 150 mg = 1 Memoria a 2-14 mL, IM, l Contracepti 15:44: q3mo, # 1 H ermann ve 150 00 mL, 0 mg/mL Refill(s) intramuscul ar suspension Hydrochloro 2014-08 Yes 1 tab, PO, Memoria thiazide 25 2-14 Daily, # l MG / 15:44: 30 tab, 0 [place] Lisinopril 00 Refill(s) 20 MG Oral Tablet Melatonin 2014-08 Yes 1 mg = 1 Me moria mg oral 2-14 tab, PO, l tablet 15:44: Bedtime, Dav 00 PRN for insomnia, # 90 tab, 0 Refill(s) Depo-Curer Foam Rubber 2014-08 Yes 150 mg = 1 Memoria a 2-14 mL, IM, l Contracepti 15:44: q3mo, # 1 H ermann ve 150 00 mL, 0 mg/mL Refill(s) intramuscul ar suspension Hydrochloro 2014-08 Yes 1 tab, PO, Memoria thiazide 25 2-14 Daily, # l MG / 15:44: 30 tab, 0 [place] Lisinopril 00 Refill(s) 20 MG Oral Tablet Melatonin 2014-08 Yes 1 mg = 1 Me moria mg oral 2-14 tab, PO, l tablet 15:44: Bedtime, Dav 00 PRN for insomnia, # 90 tab, 0 Refill(s) Depo-Curer Foam Rubber 2014-08 Yes 150 mg = 1 Memoria a 2-14 mL, IM, l Contracepti 15:44: q3mo, # 1 H ermann ve 150 00 mL, 0 mg/mL Refill(s) intramuscul ar suspension Hydrochloro 2014-08 Yes 1 tab, PO, Memoria thiazide 25 2-14 Daily, # l MG / 15:44: 30 tab, 0 [place] Lisinopril 00 Refill(s) 20 MG Oral Tablet Melatonin 2014-08 Yes 1 mg = 1 Me moria mg oral 2-14 tab, PO, l tablet 15:44: Bedtime, [place] 00 PRN for insomnia, # 90 tab, 0 Refill(s) Depo-Curer Foam Rubber 2014-08 Yes 150 mg = 1 Memoria a 2-14 mL, IM, l Contracepti 15:44: q3mo, # 1 H ermann ve 150 00 mL, 0 mg/mL Refill(s) intramuscul ar suspension Hydrochloro 2014-08 Yes 1 tab, PO, Memoria thiazide 25 2-14 Daily, # l MG / 15:44: 30 tab, 0 [place] Lisinopril 00 Refill(s) 20 MG Oral Tablet Melatonin 2014-08 Yes 1 mg = 1 Me moria mg oral 2-14 tab, PO, l tablet 15:44: Bedtime, [place] 00 PRN for insomnia, # 90 tab, 0 Refill(s) Depo-Curer Foam Rubber 2014-08 Yes 150 mg = 1 Memoria [...] 2-14 tab, PO, l tablet 15:44: Bedtime, [place] 00 PRN for insomnia, # 90 tab, 0 Refill(s) Depo-Curer Foam Rubber 2014-08 Yes 150 mg = 1 Memoria a 2-14 mL, IM, l Contracepti 15:44: q3mo, # 1 H ermann ve 150 00 mL, 0 mg/mL Refill(s) intramuscul ar suspension Hydrochloro 2014-08 Yes 1 tab, PO, Memoria thiazide 25 2-14 Daily, # l MG / 15:44: 30 tab, 0 [place] Lisinopril 00 Refill(s) 20 MG Oral Tablet Melatonin 2014-08 Yes 1 mg = 1 Me moria mg oral 2-14 tab, PO, l tablet 15:44: Bedtime, [place] 00 PRN for insomnia, # 90 tab, 0 Refill(s) Depo-Curer Foam Rubber 2014-08 Yes 150 mg = 1 Memoria a 2-14 mL, IM, l Contracepti 15:44: q3mo, # 1 H ermann ve 150 00 mL, 0 mg/mL Refill(s) intramuscul ar suspension [id number] 2014-08 No 1,000 mL, Memori a 1,000 [...] Transdermal hours Patch (Same as: Transderm- Scop) [facility] 2014-08 No 1,000 mL, Memori a 1,000 [...] Transdermal hours Patch (Same as: Transderm- Scop) [facility] 2014-08 No 1,000 mL, Memori a 1,000 mL 2-14 Rate: 125 l 15:13: ml/hr, [place] 00 Infuse over: 8 hr, Route: IV, Dosing Weight 175.909 kg, Total Volume: 1,000, Start date: 08/12/15 9:13:00, Duration: 4 day, Stop date: 08/16/15 9:12:00 72 HR 2014-08 No Notes: Memoria Scopolamine 2-14 Change l 0.0139 15:13: patch Dav MG/HR 00 every 72 Transdermal hours Patch (Same as: Transderm- Scop) [facility] 2014-08 No 1,000 mL, Memori a 1,000 mL 2-14 Rate: 125 l 15:13: ml/hr, [place] 00 Infuse over: 8 hr, Route: IV, Dosing Weight 175.909 kg, Total Volume: 1,000, Start date: 08/12/15 9:13:00, Duration: 4 day, Stop date: 08/16/15 9:12:00 72 HR 2014-08 No Notes: Memoria Scopolamine 2-14 Change l 0.0139 15:13: patch [place] MG/HR 00 every 72 Transdermal hours Patch (Same as: Transderm- Scop) [id number] 2014-08 No 1,000 mL, Memori a 1,000 mL 2-14 Rate: 125 l 15:13: ml/hr, [place] 00 Infuse over: 8 hr, Route: IV, Dosing Weight 175.909 kg, Total Volume: 1,000, Start date: 08/12/15 9:13:00, Duration: 4 day, Stop date: 08/16/15 9:12:00 72 HR 2014-08 No Notes: Memoria Scopolamine 2-14 Change l 0.0139 15:13: patch [place] MG/HR 00 every 72 Transdermal hours Patch (Same as: Transderm- Scop) [facility] 2014-08 No 1,000 mL, Memori a 1,000 mL 2-14 Rate: 125 l 15:13: ml/hr, [place] 00 Infuse over: 8 hr, Route: IV, Dosing Weight 175.909 kg, Total Volume: 1,000, Start date: 08/12/15 9:13:00, Duration: 4 day, Stop date: 08/16/15 9:12:00 72 HR 2014-08 No Notes: Memoria Scopolamine 2-14 Change l 0.0139 15:13: patch [place] MG/HR 00 every 72 Transdermal hours Patch (Same as: Transderm- Scop) [facility] 2014-08 No 1,000 mL, Memori a 1,000 mL 2-14 Rate: 125 l 15:13: ml/hr, [place] 00 Infuse over: 8 hr, Route: IV, Dosing Weight 175.909 kg, Total Volume: 1,000, Start date: 08/12/15 9:13:00, Duration: 4 day, Stop date: 08/16/15 9:12:00 72 HR 2014-08 No Notes: Memoria Scopolamine 2-14 Change l 0.0139 15:13: patch [place] MG/HR 00 every 72 Transdermal hours Patch (Same as: Transderm- Scop) [facility] 2014-08 No 1,000 mL, Memori a 1,000 [...] Transdermal hours Patch (Same as: Transderm- Scop) [facility] 2014-08 No 1,000 mL, Memori a 1,000 mL 2-14 Rate: 125 l 15:13: ml/hr, [place] 00 Infuse over: 8 hr, Route: IV, Dosing Weight 175.909 kg, Total Volume: 1,000, Start date: 08/12/15 9:13:00, Duration: 4 day, Stop date: 08/16/15 9:12:00 72 HR 2014-08 No Notes: Memoria Scopolamine 2-14 Change l 0.0139 15:13: patch [place] MG/HR 00 every 72 Transdermal hours Patch (Same as: Transderm- Scop) [facility] 2014-08 No 1,000 mL, Memori a 1,000 mL 2-14 Rate: 125 l 15:13: ml/hr, [place] 00 Infuse over: 8 hr, Route: IV, Dosing Weight 175.909 kg, Total Volume: 1,000, Start date: 08/12/15 9:13:00, Duration: 4 day, Stop date: 08/16/15 9:12:00 72 HR 2014-08 No Notes: Memoria Scopolamine 2-14 Change l 0.0139 15:13: patch [place] MG/HR 00 every 72 Transdermal hours Patch (Same as: Transderm- Scop) [facility] 2014-08 No 1,000 mL, Memori a 1,000 [...] Transdermal hours Patch (Same as: Transderm- Scop) [facility] 2014-08 No 1,000 mL, Memori a 1,000 mL 2-14 Rate: 125 l 15:13: ml/hr, [place] 00 Infuse over: 8 hr, Route: IV, Dosing Weight 175.909 kg, Total Volume: 1,000, Start date: 08/12/15 9:13:00, Duration: 4 day, Stop date: 08/16/15 9:12:00 72 HR 2014-08 No Notes: Memoria Scopolamine 2-14 Change l 0.0139 15:13: patch Dav MG/HR 00 every 72 Transdermal hours Patch (Same as: Transderm- Scop) [facility] 2014-08 No 1,000 mL, Memori a 1,000 [...] Transdermal hours Patch (Same as: Transderm- Scop) [facility] 2014-08 No 1,000 mL, Memori a 1,000 mL 2-14 Rate: 125 l 15:13: ml/hr, [place] 00 Infuse over: 8 hr, Route: IV, Dosing Weight 175.909 kg, Total Volume: 1,000, Start date: 08/12/15 9:13:00, Duration: 4 day, Stop date: 08/16/15 9:12:00 72 HR 2014-08 No Notes: Memoria Scopolamine 2-14 Change l 0.0139 15:13: patch [place] MG/HR 00 every 72 Transdermal hours Patch (Same as: Transderm- Scop) [facility] 2014-08 No 1,000 mL, Memori a 1,000 mL 2-14 Rate: 125 l 15:13: ml/hr, [place] 00 Infuse over: 8 hr, Route: IV, Dosing Weight 175.909 kg, Total Volume: 1,000, Start date: 08/12/15 9:13:00, Duration: 4 day, Stop date: 08/16/15 9:12:00 72 HR 2014-08 No Notes: Memoria Scopolamine 2-14 Change l 0.0139 15:13: patch [place] MG/HR 00 every 72 Transdermal hours Patch (Same as: Transderm- Scop) [id number] 2014-08 No 1,000 mL, Memori a 1,000 mL 2-14 Rate: 125 l 15:13: ml/hr, [place] 00 Infuse over: 8 hr, Route: IV, Dosing Weight 175.909 kg, Total Volume: 1,000, Start date: 08/12/15 9:13:00, Duration: 4 day, Stop date: 08/16/15 9:12:00 72 HR 2014-08 No Notes: Memoria Scopolamine 2-14 Change l 0.0139 15:13: patch [place] MG/HR 00 every 72 Transdermal hours Patch (Same as: Transderm- Scop) [id number] 2014-08 No 1,000 mL, Memori a 1,000 mL 2-14 Rate: 125 l 15:13: ml/hr, [place] 00 Infuse over: 8 hr, Route: IV, Dosing Weight 175.909 kg, Total Volume: 1,000, Start date: 08/12/15 9:13:00, Duration: 4 day, Stop date: 08/16/15 9:12:00 72 HR 2014-08 No Notes: Memoria Scopolamine 2-14 Change l 0.0139 15:13: patch [place] MG/HR 00 every 72 Transdermal hours Patch (Same as: Transderm- Scop) Naloxone 2014-08 No 0.1 mg, Memori a 0-12 Route: l 14:25: IVP, [place] 00 Q2MIN, Dosing Weight 175.909, kg, PRN Narcotic Reversal, Start date: 06/10/15 9:25:00, Duration: 4 doses or times, Stop date: Limited # of times Flumazenil 2014-08 No 0.1 mg, Henok vane 0-12 Route: l 14:25: IVP, [place] 00 Q5Min, Dosing Weight 175.909, kg, [...] Henok vane 0-12 Route: l 14:25: IVP, [place] 00 Q5Min, Dosing Weight 175.909, kg, PRN Other -See Comment, Start date: 06/10/15 9:25:00, Duration: 30 day, Stop date: 07/10/15 8:24:00 Naloxone 2014- No 0.1 mg, Memori a 0-12 Route: l 14:25: IVP, [place] 00 Q2MIN, Dosing Weight 175.909, kg, [...] Memori a 0-12 Route: l 14:25: IVP, [place] 00 Q2MIN, Dosing Weight 175.909, kg, PRN Narcotic Reversal, Start date: 06/10/15 9:25:00, Duration: 4 doses or times, Stop date: Limited # of times Flumazenil 2014- No 0.1 mg, Henok vane 0-12 Route: l 14:25: IVP, [place] 00 Q5Min, Dosing Weight 175.909, kg, PRN Other -See Comment, Start date: 06/10/15 9:25:00, Duration: 30 day, Stop date: 07/10/15 8:24:00 Naloxone 2014- No 0.1 mg, Memori a 0-12 Route: l 14:25: IVP, [place] 00 Q2MIN, Dosing Weight 175.909, kg, PRN Narcotic Reversal, Start date: 06/10/15 9:25:00, Duration: 4 doses or times, Stop date: Limited # of times Flumazenil 2014-08 No 0.1 mg, Henok vane 0-12 Route: l 14:25: IVP, [place] 00 Q5Min, Dosing Weight 175.909, kg, [...] Memori a 0-12 Route: l 14:25: IVP, [place] 00 Q2MIN, Dosing Weight 175.909, kg, PRN Narcotic Reversal, Start date: 06/10/15 9:25:00, Duration: 4 doses or times, Stop date: Limited # of times Flumazenil 2014-08 No 0.1 mg, Henok vane 0-12 Route: l 14:25: IVP, [place] 00 Q5Min, Dosing Weight 175.909, kg, [...] Henok vane 0-12 Route: l 14:25: IVP, [place] 00 Q5Min, Dosing Weight 175.909, kg, PRN Other -See Comment, Start date: 06/10/15 9:25:00, Duration: 30 day, Stop date: 07/10/15 8:24:00 Naloxone 2014-08 No 0.1 mg, Memori a 0-12 Route: l 14:25: IVP, [place] 00 Q2MIN, Dosing Weight 175.909, kg, PRN Narcotic Reversal, Start date: 06/10/15 9:25:00, Duration: 4 doses or times, Stop date: Limited # of times Flumazenil 2014- No 0.1 mg, Henok vane 0-12 Route: l 14:25: IVP, [place] 00 Q5Min, Dosing Weight 175.909, kg, PRN Other -See Comment, Start date: 06/10/15 9:25:00, Duration: 30 day, Stop date: 07/10/15 8:24:00 Naloxone 2014- No 0.1 mg, Memori a 0-12 Route: l 14:25: IVP, [place] 00 Q2MIN, Dosing Weight 175.909, kg, [...] Memori a 0-12 Route: l 14:25: IVP, [place] 00 Q2MIN, Dosing Weight 175.909, kg, [...] 0-12 Rate: 25 l 0.154 12:06: ml/hr, [place] MEQ/ML 00 Infuse Injectable over: 40 [...] 0-12 Rate: 25 l 0.154 12:06: ml/hr, [place] MEQ/ML 00 Infuse Injectable over: 40 Solution hr, Route: IV, Dosing Weight 175.909 kg, Total Volume: 1,000, Start date: 06/10/15 7:06:00, Duration: 30 day, Stop date: 07/10/15 7:05:00 Sodium 2014-1 No 1,000 mL, Memori a Chloride 0-12 Rate: 25 l 0.154 12:06: ml/hr, [place] MEQ/ML 00 Infuse Injectable over: 40 Solution hr, Route: IV, Dosing Weight 175.909 kg, Total Volume: 1,000, Start date: 06/10/15 7:06:00, Duration: 30 day, Stop date: 07/10/15 7:05:00 Sodium 2014-1 No 1,000 mL, Memori a Chloride 0-12 Rate: 25 l 0.154 12:06: ml/hr, [place] MEQ/ML 00 Infuse Injectable over: 40 [...] 0-12 Rate: 25 l 0.154 12:06: ml/hr, [place] MEQ/ML 00 Infuse Injectable over: 40 [...] 0-12 Rate: 25 l 0.154 12:06: ml/hr, [place] MEQ/ML 00 Infuse Injectable over: 40 Solution hr, Route: IV, Dosing Weight 175.909 kg, Total Volume: 1,000, Start date: 06/10/15 7:06:00, Duration: 30 day, Stop date: 07/10/15 7:05:00 Sodium 2015-1 No 1,000 mL, Memori a Chloride 0-12 Rate: 25 l 0.154 12:06: ml/hr, [place] MEQ/ML 00 Infuse Injectable over: 40 Solution hr, Route: IV, Dosing Weight 175.909 kg, Total Volume: 1,000, Start date: 06/10/15 7:06:00, Duration: 30 day, Stop date: 07/10/15 7:05:00 Sodium 2015-1 No 1,000 mL, Memori a Chloride 0-12 Rate: 25 l 0.154 12:06: ml/hr, [place] MEQ/ML 00 Infuse Injectable over: 40 [...] l MG / 19:35: 30 tab, 0 [place] Lisinopril 00 Refill(s) 20 MG Oral Tablet oxcarbazepi 2014-08 Yes 600 mg = 2 Memoria ne 300 MG 0-09 tab, PO, l Oral Tablet 19:35: BID, # 120 Dav [Trileptal] 00 tab, 0 Refill(s) Hydrochloro 2014-08 No 1 tab, PO, Memoria thiazide 25 0-09 Daily, # l MG / 19:35: 30 tab, 0 [place] Lisinopril 00 Refill(s) 20 MG Oral Tablet oxcarbazepi 2014-08 Yes 600 mg = 2 Memoria ne 300 MG 0-09 tab, PO, l Oral Tablet 19:35: BID, # 120 [place] [Trileptal] 00 tab, 0 Refill(s) Hydrochloro 2014-08 No 1 tab, PO, Memoria thiazide 25 0-09 Daily, # l MG / 19:35: 30 tab, 0 [place] Lisinopril 00 Refill(s) 20 MG Oral Tablet oxcarbazepi 2014-08 Yes 600 mg = 2 Memoria ne 300 MG 0-09 tab, PO, l Oral Tablet 19:35: BID, # 120 [place] [Trileptal] 00 tab, 0 Refill(s) Hydrochloro [...] l Oral Tablet 19:35: BID, # 120 [place] [Trileptal] 00 tab, 0 Refill(s) Hydrochloro [...] l MG / 19:35: 30 tab, 0 [place] Lisinopril 00 Refill(s) 20 MG Oral [...] l MG / 19:35: 30 tab, 0 [place] Lisinopril 00 Refill(s) 20 MG Oral Tablet oxcarbazepi 2014-08 Yes 600 mg = 2 Memoria ne 300 MG 0-09 tab, PO, l Oral Tablet 19:35: BID, # 120 [place] [Trileptal] 00 tab, 0 Refill(s) Hydrochloro 2014-08 No 1 tab, PO, Memoria thiazide 25 0-09 Daily, # l MG / 19:35: 30 tab, 0 [place] Lisinopril 00 Refill(s) 20 MG Oral Tablet oxcarbazepi 2014-08 Yes 600 mg = 2 Memoria ne 300 MG 0-09 tab, PO, l Oral Tablet 19:35: BID, # 120 [place] [Trileptal] 00 tab, 0 Refill(s) Hydrochloro 2014-08 No 1 tab, PO, Memoria thiazide 25 0-09 Daily, # l MG / 19:35: 30 tab, 0 [place] Lisinopril 00 Refill(s) 20 MG Oral Tablet oxcarbazepi 2014-08 Yes 600 mg = 2 Memoria ne 300 MG 0-09 tab, PO, l Oral Tablet 19:35: BID, # 120 [place] [Trileptal] 00 tab, 0 Refill(s) Hydrochloro 2014-08 No 1 tab, PO, Memoria thiazide 25 0-09 Daily, # l MG / 19:35: 30 tab, 0 [place] Lisinopril 00 Refill(s) 20 MG Oral Tablet oxcarbazepi 2014-08 Yes 600 mg = 2 Memoria ne 300 MG 0-09 tab, PO, l Oral Tablet 19:35: BID, # 120 [place] [Trileptal] 00 tab, 0 Refill(s) Hydrochloro [...] l MG / 19:35: 30 tab, 0 [place] Lisinopril 00 Refill(s) 20 MG Oral [...] l Oral Tablet 19:35: BID, # 120 [place] [Trileptal] 00 tab, 0 Refill(s) Hydrochloro 2014-08 No 1 tab, PO, Memoria thiazide 25 0-09 Daily, # l MG / 19:35: 30 tab, 0 [place] Lisinopril 00 Refill(s) 20 MG Oral [...] 0 Memori a 0-09 Refill(s) l 19:31: [place] Wellbutrin 2014-08 Yes PO, 0 Memori a 0-09 Refill(s) l 19:31: [place] Wellbutrin 2014-08 Yes PO, 0 Memori a 0-09 Refill(s) l 19:31: Dav Wellbutrin 2014-08 Yes PO, 0 Memori a [...] Immunizations Ordered Filled Immunization Date Status Comments Sour e Immunization Name Name SARS-COV-2 COVID-19 2021-12-16 Completed Un[facility] of [facility]NA 12+ YRS 00:00:00 [facility] SARS-COV-2 COVID-19 2021-12-16 Completed Unive rsity of MODERNA 12+ YRS 00:00:[address] [facility] ical VACCINE Branch SARS-COV-2 COVID-19 2021-12-16 Completed Unive rsity of MODERNA 12+ YRS 00:00:[address] [facility] ical VACCINE Branch DAVIDE COVID-19 2021-04-05 Completed [facility] AD26 VACCINATION 00:00:00 [facility] COVID-19 2021-04-05 Completed [facility] AD26 VACCINATION 00:00:00 [facility] COVID-19 2021-04-05 Completed [facility] AD26 VACCINATION 00:00:00 [facility] COVID-19 2021-04-05 Completed [facility] AD26 VACCINATION 00:00:00 [facility] COVID-19 2021-04-05 Completed [facility] AD26 VACCINATION 00:00:00 [facility] COVID-19 2021-04-05 Completed [facility] AD26 VACCINATION 00:00:00 [facility] COVID-19 2021-04-05 Completed [facility] AD26 VACCINATION 00:00:00 [facility] COVID-19 2021-04-05 Completed [facility] AD26 VACCINATION 00:00:00 [facility] COVID-19 2021-04-05 Completed [facility] t AD26 VACCINATION 00:00:00 [facility] Flu Injectable MDCK 2020-06-03 Completed [facility]ive rs[facility] of Quadrivalent 00:00:[facility] Flu Injectable MDCK 2020-06-03 Completed [facility]ive rs[facility] of Quadrivalent 00:00:00 [facility] Flu Injectable MDCK 2020-06-03 Completed [facility] rs[facility] of Quadrivalent 00:00:00 [facility] Flu Injectable MDCK 2019-07-10 Completed Unive rsity of Quadrivalent 00:00:00 [facility] Flu Injectable MDCK 2019-07-10 Completed Unive rsity of Quadrivalent 00:00:00 [facility] Flu Injectable MDCK 2019-07-10 Completed Unive rsity of Quadrivalent 00:00:00 [facility] Influenza Virus 2018-05-30 Completed [facility] Vaccine 00:00:00 [facility] Influenza Virus 2018-05-30 Completed [facility] of Vaccine 00:00:00 [facility] Influenza Virus 2018-05-30 Completed [facility] of Vaccine 00:00:00 [facility] Flu Trivalent 2017-06-11 Completed [facility] of 00:00:00 [facility] Flu Trivalent 2017-06-11 Completed [facility] of 00:00:00 [facility] Flu Trivalent 2017-06-11 Completed [facility] of 00:00:00 [facility] TDAP 2016-08-22 Completed [facility] of 00:00:00 [facility] TDAP 2016-08-22 Completed [facility] of 00:00:00 [facility] TDAP 2016-08-22 Completed [facility] of 00:00:00 [facility] pneumococcal 2015-08-16 Completed [facility] 23-valent [...] 2023-01-19 15:48:00 151 mm[Hg] Univer sity of [facility] Diastolic blood 2023-01-19 15:48:00 88 mm[Hg] Unive rsity [facility] Heart rate 2023-01-19 15:48:00 59 /min [facility] Body temperature 2023-01-19 15:48:00 35.89 Gabrielle [facility] Respiratory rate 2023-01-19 15:48:00 18 /min [facility] Body height 2023-01-19 15:48:00 170.2 cm [facility] Body weight 2023-01-19 15:48:00 144.335 kg [facility] BMI 2023-01-19 15:48:00 49.84 kg/m2 [facility] Oxygen saturation in 2023-01-19 15:48:00 98 /min [facility] Arterial blood by [facility] Pulse oximetry Branch Systolic blood 2022-08-26 19:08:00 166 mm[Hg] Univer sity of pressure [facility] Diastolic blood 2022-08-26 19:08:00 99 mm[Hg] Unive rsity of pressure [facility] Heart rate 2022-08-26 19:08:00 77 /min [facility] Body temperature 2022-08-26 19:08:00 37 [facility] Respiratory rate 2022-08-26 19:08:00 18 [facility] 2022-08-26 19:08:00 170.2 cm [facility] Body weight 2022-08-26 19:08:00 147.419 kg [facility] BMI 2022-08-26 19:08:00 50.90 kg/m2 Universi [facility] Oxygen saturation in 2022-08-26 19:08:00 98 /min [facility] Arterial blood by [facility] Pulse oximetry Branch BP Diastolic 2022-04-08 00:00:00 90 mm[Hg] [facility] edical Height 2022-04-08 00:00:00 66 [in_i] Faith Nicole [facility] BMI (Body Mass 2022-04-08 00:00:00 53.7 kg/m2 [facility] Medical Index) BP Systolic 2022-04-08 00:00:00 142 mm[Hg] [facility] Body Weight 2022-04-08 00:00:00 333 [lb_av] [facility] BP Diastolic 2021-12-18 00:00:00 86 mm[Hg] [facility] Height 2021-12-18 00:00:00 66 [in_i] [facility] BMI (Body Mass 2021-12-18 00:00:00 54.7 kg/m2 [facility] Medical Index) BP Systolic 2021-12-18 00:00:00 140 mm[Hg] [facility] Body Weight 2021-12-18 00:00:00 339 [lb_av] [facility] BP Diastolic 2021-11-25 00:00:00 88 mm[Hg] [facility] BP Systolic 2021-11-25 00:00:00 138 mm[Hg] [facility] Body Weight 2021-11-25 00:00:00 338 [lb_av] [facility] Systolic blood 2022-06-12 02:38:00 128 mm[Hg] [facility] pressure Diastolic blood 2022-06-12 02:38:00 77 mm[Hg] [facility] pressure Heart rate 2022-06-12 02:38:00 63 /min [facility] Respiratory rate 2022-06-12 02:38:00 18 /min [facility] Oxygen saturation in 2022-06-12 02:38:00 97 /min [facility] Arterial blood by Pulse oximetry Body temperature 2022-06-11 23:40:00 36.5 Gabrielle [facility] Body height 2022-06-11 23:38:00 170.2 cm [facility] Body weight 2022-06-11 23:38:00 145.151 kg [facility] BMI 2022-06-11 23:38:00 50.12 kg/m2 [facility] Systolic (mm Hg) 2022-03-19 07:00:00 Henok rial Dav Diastolic (mm Hg) 2022-03-19 07:00:00 Mem orial [place] Respitory Rate 2022-03-19 07:00:00 Memori al [place] Heart Rate 2022-03-19 07:00:00 [facility] [place] Height 2022-03-19 03:25:00 170.18 cm [facility] BMI Calculated 2022-03-19 03:25:00 Memori al Dav Weight 2022-03-19 03:25:00 [facility] Systolic (mm Hg) 2022-03-19 03:25:00 Henok rial Dav Diastolic (mm Hg) 2022-03-19 03:25:00 Mem orial [place] Heart Rate 2022-03-19 03:25:00 [facility] Respitory [...] orial Dav Heart Rate 2022-03-14 00:40:00 [facility] [place] Respitory Rate 2022-03-14 00:40:00 Memori al [place] Temperature Oral (F) 2022-03-14 00:40:00 100 F [facility] [place] Systolic (mm Hg) 2021-01-21 01:00:00 Henok rial Dav Diastolic (mm Hg) 2021-01-21 01:00:00 Mem orial Dav Heart Rate 2021-01-21 01:00:00 [facility] Respitory Rate 2021-01-21 01:00:00 Memori al [place] Temperature Oral (F) 2021-01-21 01:00:00 98.5 F [facility] Height 2021-01-20 21:08:00 170.18 cm [facility] BMI Calculated 2021-01-20 21:08:00 Memori al [place] Weight 2021-01-20 21:08:00 [facility] [place] Systolic (mm Hg) 2021-01-20 21:08:00 Henok rial Dav Diastolic (mm Hg) 2021-01-20 21:08:00 Mem orial Dav Heart Rate 2021-01-20 21:08:00 [facility] Respitory Rate 2021-01-20 21:08:00 Memori al Dav Temperature Oral (F) 2021-01-20 21:08:00 98.7 F [facility] Weight 2015-09-19 21:05:00 [facility] Temperature Oral (F) 2015-09-19 20:45:00 97.7 F [facility] [place] Systolic (mm Hg) 2015-09-19 20:45:00 [facility] Diastolic (mm Hg) 2015-09-19 20:45:00 [facility] Heart Rate 2015-09-19 20:45:00 [facility] [place] Respitory Rate 2015-09-19 20:45:00 [facility] [place] Respitory Rate 2015-09-19 18:54:00 [facility] Systolic (mm Hg) 2015-09-19 18:54:00 [facility] Diastolic (mm Hg) 2015-09-19 18:54:00 [facility] Systolic (mm Hg) 2015-09-19 18:39:00 [facility] [place] Diastolic (mm Hg) 2015-09-19 18:39:00 [facility] [place] Respitory Rate 2015-09-19 18:39:00 [facility] Heart Rate 2015-09-19 18:04:00 [facility] [place] [place] Temperature Oral (F) 2015-09-19 13:40:00 97.8 F [facility] Heart Rate 2015-09-19 13:40:00 [facility] Temperature Oral (F) 2015-09-19 11:08:00 97.9 F [facility] Weight 2015-09-18 05:03:00 [facility] Weight 2015-09-18 00:07:00 [facility] Height 2015-09-18 00:07:00 170.18 cm [facility] BMI Calculated 2015-09-18 00:07:00 [facility] Temperature Oral (F) 2015-08-26 22:06:00 98 F [facility] Heart Rate 2015-08-26 22:06:00 [facility] Respitory Rate 2015-08-26 22:06:00 [facility] Systolic (mm Hg) 2015-08-26 22:06:00 [facility] [place] Diastolic (mm Hg) 2015-08-26 22:06:00 [facility] [place] Temperature Oral (F) 2015-08-26 20:46:00 98.0 F [facility] Systolic (mm Hg) 2015-08-26 20:46:00 Henok rial Dav Diastolic (mm Hg) 2015-08-26 20:46:00 Mem [facility] Respitory Rate 2015-08-26 20:46:00 [facility] [place] Heart Rate 2015-08-26 20:46:00 [facility] Weight 2015-08-26 16:38:00 [facility] BMI Calculated 2015-08-26 16:38:00 [facility] Respitory Rate 2015-08-26 16:38:00 [facility] [place] Heart Rate 2015-08-26 16:38:00 [facility] Systolic (mm Hg) 2015-08-26 16:38:00 [facility] [place] Diastolic (mm Hg) 2015-08-26 16:38:00 [facility] [place] Height 2015-08-26 16:38:00 170.18 cm [facility] Temperature Oral (F) 2015-08-26 16:38:00 97.9 F [facility] Systolic (mm Hg) 2015-08-16 18:33:00 Henok rial Dav Diastolic (mm Hg) 2015-08-16 18:33:00 [facility] [place] Heart Rate 2015-08-16 18:33:00 [facility] Respitory Rate 2015-08-16 18:33:00 [facility] Temperature Oral (F) 2015-08-16 18:33:00 97.9 F [facility] Respitory Rate 2015-08-16 14:00:00 [facility] Systolic (mm Hg) 2015-08-16 14:00:00 Henok rial [facility] Diastolic (mm Hg) 2015-08-16 14:00:00 [facility] [place] Temperature Oral (F) 2015-08-16 14:00:00 98.0 F [facility] Heart Rate 2015-08-16 14:00:00 [facility] Temperature Oral (F) 2015-08-16 10:20:00 98.1 F [facility] Heart Rate 2015-08-16 10:20:00 [facility] Systolic (mm Hg) 2015-08-16 10:20:00 Henok rial Dav Diastolic (mm Hg) 2015-08-16 10:20:00 Mem [facility] Respitory Rate 2015-08-16 10:20:00 [facility] Height 2015-08-15 17:30:00 170.18 cm [facility] Weight 2015-08-15 17:30:00 [facility] BMI Calculated 2015-08-15 17:30:00 [facility] [place] Weight 2015-08-15 12:45:00 [facility] Height 2015-08-12 15:32:00 170.18 cm [facility] Weight 2015-08-12 15:32:00 [facility] BMI Calculated 2015-08-12 15:32:00 [facility] [place] Respitory Rate 2015-06-10 14:07:00 [facility] [place] Systolic (mm Hg) 2015-06-10 14:07:00 Henok rial Dav Diastolic (mm Hg) 2015-06-10 14:07:00 [facility] Systolic (mm Hg) 2015-06-10 13:52:00 Henok rial [facility] Diastolic (mm Hg) 2015-06-10 13:52:00 Mem [facility] Respitory Rate 2015-06-10 13:52:00 [facility] [place] Systolic (mm Hg) 2015-06-10 13:37:00 Henok rial [facility] Diastolic (mm Hg) 2015-06-10 13:37:00 [facility] [place] Respitory Rate 2015-06-10 13:37:00 Lucy Villalbaann Weight 2015-06-07 19:28:00 [facility] BMI Calculated 2015-06-07 19:28:00 Lucy Hannah Height 2015-06-07 19:28:00 170.18 cm [facility] Procedures Procedure Date / Time Performing Source Performed Clinician POCT TEST 2023-01-19 Fawad Aldrich [facility] 16:12:00 [facility] XR CHEST 2 VW 2022-08-26 [facility] 20:46:19 [facility] RAPID INFLUENZA A/B 2022-08-26 [facility] o f 19:56:00 [facility] COVID-19 (ID NOW RAPID TESTING) 2022-08-26 [facility] of 19:56:00 [facility] NOTICE OF PRIVACY PRACTICES 2022-08-26 [facility] ersity of 18:35:53 Unassigned, No [facility] CONSENT/REFUSAL FOR DIAGNOSIS AND 2022-08-26 [facility] TREATMENT 18:35:08 Unassigned, No [facility] URINE CULTURE 2022-06-12 Shayne Menezes 02:11:00 [facility] URINALYSIS 2022-06-12 Shayne Menezes 02:11:00 [facility] HCG QUALITATIVE, URINE SCREEN 2022-06-12 Shayne Menezes [facility] 02:11:00 [facility] INFLUENZA ANTIGEN 2022-06-12 Shayne Menezes 00:07:00 [facility] CBC WITH PLATELET AND DIFFERENTIAL 2022-06-12 Amaury Menezes 00:07:00 [facility] COMPREHENSIVE METABOLIC PANEL 2022-06-12 Shayne Menezes [facility] 00:07:00 [facility] ESTIMATED GFR 2022-06-12 Shayne Menezes 00:07:00 [facility] MANUAL DIFFERENTIAL 2022-06-12 Shayne Menezse 00:07:00 [facility] CBC WITH PLATELET AND DIFFERENTIAL 2022-06-12 Amaury Menezes 00:07:00 [facility] XR CHEST 1 VW 2022-06-11 Shayne Menezes 23:55:13 [facility] MRI PITUITARY W WO CONTRAST 2021-12-05 Kaycee Longo [facility] 16:05:12 [facility] MRI, pituitary, w/wo contrast 2021-11-27 [facility] 00:00:00 US PELVIC TRANSABDOMINAL 2021-11-[address] 07:30:53 [facility] US PELVIC TRANSVAGINAL 2021-11-09 Edin Lakhani 07:30:53 [facility] HCG QUALITATIVE, SERUM SCREEN 2021-11-09 Me [facility] 03:50:00 [facility] HC COMPLETE BLD COUNT W/AUTO DIFF 2021-11-09 Edin Lakhani 03:35:00 [facility] PROTHROMBIN TIME WITH INR 2021-11-09 Jack Lakhani ist 03:35:00 [facility] PARTIAL THROMBOPLASTIN TIME (PTT) 2021-11-09 Edin Lakhani 03:35:00 [facility] COMPREHENSIVE METABOLIC PANEL 2021-11-09 [facility] 03:35:00 [facility] ESTIMATED GFR 2021-11-09 Edin Lakhani 03:35:00 [facility] Gastric Bypass for Obesity 2014-08-30 [facility] 00:00:00 Cholecystectomy 2014-08-30 [facility] 00:00:00 Arthroscopy of knee<sup>1</sup> [facility] Esophagogastroduodenoscopy [facility] [place] Banding of gastric varices [facility] Plan of Care Planned Activity Planned Date Details Comments Source Future Scheduled Test 2023-02-11 Hepatitis C [facility]3] 16:53:30 screening (procedure) [code = 227183401] Future Scheduled Test 2023-02-11 [facility] 16:53:30 malignant neoplasm of cervix (procedure) [code = 965193442] Future Scheduled Test 2023-02-11 COVID-19 VACCINE ([address] [place] [address] 16:53:30 - Booster for Davide series) [code = COVID-19 VACCINE (3 - Booster for Davide series)] Future Scheduled Test 2023-02-11 INFLUENZA VACCINE [facility] 16:53:30 [code = INFLUENZA VACCINE] Future Scheduled Test 2022-12-04 Hepatitis C [facility]3] 03:26:37 screening (procedure) [code = 433404796] Future Scheduled Test 2022-12-04 [facility] 03:26:37 malignant neoplasm of cervix (procedure) [code = 147674423] Future Scheduled Test 2022-12-04 COVID-19 VACCINE ([address] [place] [address] 03:26:37 - Booster for Davide series) [code = COVID-19 VACCINE (3 - Booster for Davide series)] Future Scheduled Test 2022-12-04 INFLUENZA VACCINE [facility] 03:26:37 [code = INFLUENZA VACCINE] Future Scheduled Test 2022-12-04 Hepatitis C [facility]3] 03:26:37 screening (procedure) [code = 936860729] Future Scheduled Test 2022-12-04 [facility] 03:26:37 malignant neoplasm of cervix (procedure) [code = 064377495] Future Scheduled Test 2022-12-04 COVID-19 VACCINE ([address] [place] [address] 03:26:37 - Booster for Davide series) [code = COVID-19 VACCINE (3 - Booster for Davide series)] Future Scheduled Test 2022-12-04 INFLUENZA VACCINE [facility] 03:26:37 [code = INFLUENZA VACCINE] Future Scheduled Test 2022-12-04 Hepatitis C [facility]3] 03:26:37 screening (procedure) [code = 005971968] Future Scheduled Test 2022-12-04 [facility] 03:26:37 malignant neoplasm of cervix (procedure) [code = 492173088] Future Scheduled Test 2022-12-04 COVID-19 VACCINE ([address] [place] [address] 03:26:37 - Booster for Davide series) [code = COVID-19 VACCINE (3 - Booster for Davide series)] Future Scheduled Test 2022-12-04 INFLUENZA VACCINE [facility] 03:26:37 [code = INFLUENZA VACCINE] Future Scheduled Test 2022-12-04 Hepatitis C [facility]3] 03:26:37 screening (procedure) [code = 113855008] Future Scheduled Test 2022-12-04 [facility] 03:26:37 malignant neoplasm of cervix (procedure) [code = 364056081] Future Scheduled Test 2022-12-04 COVID-19 VACCINE ([address] [place] [address] 03:26:37 - Booster for Davide series) [code = COVID-19 VACCINE (3 - Booster for Davide series)] Future Scheduled Test 2022-12-04 INFLUENZA VACCINE [facility] 03:26:37 [code = INFLUENZA VACCINE] Future Scheduled Test 2022-12-04 Hepatitis C [facility]3] 03:26:37 screening (procedure) [code = 710822175] Future Scheduled Test 2022-12-04 Screening for [facility] 03:26:37 malignant neoplasm of cervix (procedure) [code = 287537760] Future Scheduled Test 2022-12-04 COVID-19 VACCINE ([address] [place] [address] 03:26:37 - Booster for Davide series) [code = COVID-19 VACCINE (3 - Booster for Davide series)] Future Scheduled Test 2022-12-04 INFLUENZA VACCINE [facility] 03:26:37 [code = INFLUENZA VACCINE] Future Scheduled Test 2022-10-17 Hepatitis C [facility]3] 21:28:36 screening (procedure) [code = 476068130] Future Scheduled Test 2022-10-17 [facility] 21:28:36 malignant neoplasm of cervix (procedure) [code = 695864794] Future Scheduled Test 2022-10-17 COVID-19 VACCINE ([address] [place] [address] 21:28:36 - Booster for Davide series) [code = COVID-19 VACCINE (3 - Booster for Davide series)] Future Scheduled Test 2022-10-17 INFLUENZA VACCINE [facility] 21:28:36 [code = INFLUENZA VACCINE] Future Scheduled Test 2022-10-17 Hepatitis C [facility]3] 21:28:36 screening (procedure) [code = 038159842] Future Scheduled Test 2022-10-17 [facility] 21:28:36 malignant neoplasm of cervix (procedure) [code = 919074060] Future Scheduled Test 2022-10-17 COVID-19 VACCINE ([facility] 21:28:36 - Booster for Davide series) [code = COVID-19 VACCINE (3 - Booster for Davide series)] Future Scheduled Test 2022-10-17 INFLUENZA VACCINE [facility] 21:28:36 [code = INFLUENZA VACCINE] Future Scheduled Test 2022-10-17 [facility] C [facility] 21:28:36 screening (procedure) [code = 466955311] Future Scheduled Test 2022-10-17 [facility] 21:28:36 malignant neoplasm of cervix (procedure) [code = 191734390] Future Scheduled Test 2022-10-17 COVID-19 VACCINE (3 [facility] 21:28:36 - Booster for Davide series) [code = COVID-19 VACCINE (3 - Booster for Davide series)] Future Scheduled Test 2022-10-17 INFLUENZA VACCINE [facility] 21:28:36 [code = INFLUENZA VACCINE] Diagnostic Test 2021-12-18 unlisted lab [code [facility] Pending 00:00:00 = unlisted lab] Encounters Start End Encounter Admission Attending Care Care Encounter Source Date/Time Date/Time Type Type Clinicians Facility Department ID 2022-05-13 Outpatient [facility] [id number] [place] 08:18:57 [id number] [facility] 2022-05-07 Outpatient [facility] [id number] [place] 12:12:06 [id number] [facility] 2022-05-06 Outpatient [facility] [id number] [place] 07:02:43 [id number] [facility] 2022-03-26 Outpatient [facility] [id number] [place] 11:04:27 [id number] [facility] 2022-02-06 Outpatient [facility] [id number] [place] 09:50:06 [id number] [facility] 2021-11-28 Outpatient [facility] [id number] [place] 13:41:01 [id number] [facility] 2021-11-26 Outpatient [facility] [id number] [place] 12:18:16 [id number] [facility] 2021-11-24 Outpatient [facility] [id number] [place] 06:46:20 [id number] [facility] 2016-09-10 Inpatient [facility] [id number] [place] rris 18:31:18 Health 2016-09-03 Inpatient [facility] [id number] [place] 19:49:43 Health 2016-09-02 Inpatient [facility] [id number] [place] 14:46:00 Health 2016-08-28 Inpatient [facility] [id number] [place] r[place] 12:49:08 Health 2016-08-25 Inpatient [facility] [id number] [place] r[facility] 18:38:06 Health 2016-08-25 Inpatient [facility] [id number] [place] [facility] 00:00:00 Health 2016-08-25 Inpatient [facility] [id number] [place] [facility] 00:00:00 [facility] 2016-08-24 Inpatient [facility] [id number] [place] 12:38:32 [facility] 2016-08-23 Inpatient [facility] [id number] [place] [facility] 23:40:15 [facility] 2016-08-23 Inpatient [facility] [id number] [place] r[place] 18:01:15 [facility] 2016-08-23 Inpatient [facility] [id number] [place] r[place] 05:23:14 [facility] 2016-08-23 Inpatient [facility] [id number] [place] r[place] 01:38:20 [facility] 2016-08-23 Inpatient [facility] [id number] Johnson rris 01:10:06 [facility] 2016-08-22 Inpatient [facility] [id number] Johnson rris 18:58:47 [facility] 2023-02-03 2023-02-03 Outpatient R [facility] [id number] Univers 15:00[facility]00 [facility] 2023-02-01 Outpatient R RADIOLOGY [facility] [id number] Univers 00:00:00 [facility]00[facility] 2023-01-26 2023-01-26 Telephone Grayson [facility] 1.2.840.114 [id number] Univers 00:00:00 00:00:00 Oxana [employer] SCI[employer]IST 350.1.13.10 [facility] 4.2.7.2.686 Imer as MATERNAL [id number] [facility] & CHILD [address] [place] [address] 2023-01-19 2023-01-19 Outpatient R VALDEMAR [facility] [id number] Univers 10:00:00 11:31:10 FAWAD [facility] 2023-01-19 2023-01-19 Office [facility] [id number] Univers 10:00:00 11:31:10 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 350.1.13.10 it [facility] 4.2.7.2.686 Imer as MATERNAL [id number] [facility] & [address] 2023-01-14 2023-01-14 Outpatient SFA [facility] 16:07:56 16:07:56 [id number] [facility] 2022-12-08 2022-12-08 Outpatient SFA [facility] 09:33:18 09:33:18 [id number] [facility] [place] 2022-11-26 2022-11-26 Outpatient SFA [facility] 15:59:13 15:59:13 [id number] [facility] [place] 2022-11-24 2022-11-24 Outpatient SFA [facility] 16:43:56 16:43:56 [id number] [facility] 2022-11-19 2022-11-19 Outpatient SFA [facility] 16:29:20 16:29:20 [id number] [facility] [place] 2022-10-20 2022-10-20 Outpatient SFA [facility] 15:07:59 15:07:59 [id number] [facility] 2022-10-19 2022-10-19 Outpatient SFA [facility] 15:42:38 15:42:38 [id number] [facility] 2022-08-26 2022-08-26 Emergency X [facility] ERT [id number] Univers 13:09:00 16:01:00 DOUG [facility] 2022-08-26 2022-08-26 Emergency [facility] [id number] Univers 13:09:00 16:01:00 Sorayarubin PACHECO 350.1.13.10 i cristina [facility] 4.2.7.2.686 [facility] [id number] [address] 2022-08-06 2022-08-06 Outpatient [facility] [id number] [address] [place] [address] 00:00:00 00:00:00 Health 2022-06-17 2022-06-17 Outpatient COLE, [facility] [id number] [place] 00:00:00 00:00:00 Counts include 234 beds at the [facility] 2022-06-11 2022-06-11 Emergency Hoang, 1.2.840.1 [id number] [id number] [facility]i 18:26:00 22:09:[address] 3.430.2.7 Hospit a .3.061836 l .8 2022-06-11 2022-06-11 Emergency Hoang, 1.2.840.1 [id number] [id number] [facility] 18:26:00 22:09:[address] 3.430.2.7 Hospit a .3.571054 l .8 2022-06-11 2022-06-11 Travel 1.2.840.1 1.2.578.230 [id number] [facility] 00:00:00 00:00:[address] 3.430.2.7 0.2.7.3.698 Ho spita .3.440342 084.8 l .8 2022-06-11 2022-06-11 Travel 1.2.840.1 1.2.975.547 [id number] Methodi 00:00:00 00:00:[address] 3.430.2.7 0.2.7.3.698 Ho spita .3.420566 084.8 l .8 2022-05-26 2022-05-26 Outpatient [facility] [id number] [place] 00:00:00 00:00:00 Health 2022-05-25 2022-05-25 Outpatient [facility] PRIV PRIV [id number] [facility] 00:00:00 00:00:00 _Diggs_R [id number] Medic al 2022-05-25 2022-05-25 Outpatient [facility] [id number] [place] 00:00:00 00:00:00 [facility] 2022-05-13 2022-05-13 Outpatient KATTCHEE, [facility] [id number] [place] 08:26:30 11:29:53 [facility] 2022-05-01 2022-05-01 Outpatient [facility] [id number] [place] 00:00:00 00:00:00 [facility] 2022-04-14 2022-04-14 Outpatient [facility] [id number] [place] 00:00:00 00:00:00 [facility] 2022-04-14 2022-04-14 [facility] [id number] [place] 00:00:00 00:00:00 [facility] 2022-04-08 2022-04-08 [facility] PRIV PRIV [id number] [facility] 00:00:00 00:00:00 _Diggs_R [id number] Medic al 2022-04-08 2022-04-08 Kaycee [facility]:00:00 00:00:00 [facility] al LANGUAGE ASST: [address], [address] [address] , Ph. 2022-04-08 2022-04-08 Outpatient Longo, PRIV PRIV [id number] 00:00:00 00:00:00 Kaycee [id number] 2022-04-06 2022-04-06 [facility] [id number] [place] 13:48:21 14:32:31 [facility] 2022-03-31 2022-03-31 Outpatient [facility] [id number] [place] 00:00:00 00:00:00 [facility] 2022-03-19 2022-03-19 Emergency nullFlavo [facility] [id number] Memoria 03:20:40 07:05:00 liang Demarco 02 [facility] 2022-03-19 2022-03-19 Emergency nullFlavo [facility] [id number] Memoria 03:20:40 07:05:00 liang Demarco 02 [facility] 2022-03-18 2022-03-19 Outpatient JUAN Bolanos [facility] [id number] [facility] 22:20:40 02:05:00 Reetoro 02 [facility] 2022-03-18 2022-03-19 Emergency E CICI, MHBL MHBL [id number] MHBL 22:20:00 02:05:00 REEVA 2022-03-14 2022-03-14 Emergency [facility]Flavo [facility] [id number] Memoria 00:15:07 05:00:00 r Dav 01 [facility] 2022-03-14 2022-03-14 Emergency nullFlavo [facility] [id number] Memoria 00:15:07 05:00:00 r Dav 01 [facility] 2022-03-13 2022-03-14 Outpatient Martha, MHPL MHPL [id number] 19:15:07 00:00:00 Abdiwahab 01 [facility] 2022-03-13 2022-03-14 Outpatient Mohwinter, MHPL MHPL [id number] 19:15:07 00:00:00 Abdiwahab 01 [facility] 2022-03-13 2022-03-14 Emergency E MARTHA, MHBL MHBL [id number] MHBL 19:15:00 00:00:00 ABDIWAHAB 2022-03-11 2022-03-11 [facility] [id number] [place] 11:25:00 11:25:00 PIETRO [id number] [facility] 2022-02-24 2022-02-24 [facility] [id number] [place] 09:53:24 10:41:58 [facility] 2022-02-24 2022-02-24 Outpatient [facility] [id number] [place] 10:34:06 10:41:26 Health 2022-02-23 2022-02-24 [facility] [id number] [place] 14:37:42 07:15:27 [facility] 2022-02-24 2022-02-24 [facility] [id number] [place] 00:00:00 00:00:00 [facility] 2022-02-10 2022-02-10 [facility] [id number] [place] 00:00:00 00:00:00 [facility] 2022-02-10 2022-02-10 [facility] [id number] [place] 00:00:00 00:00:00 [facility] 2022-02-05 2022-02-06 Emergency [facility]LY [facility] [id number] [place] 23:16:00 01:00:00 [facility] 2022-02-05 2022-02-06 Emergency 1 [facility] [id number] [place] 23:16:00 01:00:00 [facility] 2022-02-05 2022-02-05 Emergency [facility] [id number] [place] 23:32:16 23:55:28 [facility] 2022-02-05 2022-02-05 Emergency HERMES, [facility] [id number] [place] 21:30:24 21:41:51 [facility] 2022-02-04 2022-02-04 Outpatient CYNTHIA, [facility] [id number] [place] 13:16:26 14:54:03 [facility] 2022-01-20 2022-01-20 [facility] [id number] [place] 08:08:28 09:07:11 [facility] 2022-01-20 2022-01-20 Outpatient [facility] [id number] [place] 08:40:24 08:55:12 [facility] 2022-01-20 2022-01-20 Outpatient [facility] [id number] [place] 00:00:00 00:00:00 [facility] 2022-01-20 2022-01-20 [facility] [id number] [place] 00:00:00 00:00:00 [facility] 2022-01-02 2022-01-02 Outpatient KATHRYN ZELAYA [facility] [id number] [place] 00:00:00 00:00:00 [facility] 2021-12-30 2021-12-30 [facility] [id number] [place] 09:12:55 10:28:29 [facility] 2021-12-30 2021-12-30 Outpatient [facility] [id number] [place] 09:43:20 09:55:06 [facility] 2021-12-30 2021-12-30 [facility] [id number] [place] 00:00:00 00:00:00 [facility] 2021-12-18 2021-12-18 Outpatient _[facility] PRIV PRIV [id number] [facility] 11:17:00 11:17:00 _Diggs_R [id number] Medic al 2021-12-18 2021-12-18 Outpatient [facility] PRIV PRIV [id number] [facility] 11:17:00 11:17:00 _Diggs_R [id number] Medic al 2021-12-18 2021-12-18 Outpatient _[facility] PRIV PRIV [id number] [facility] 11:17:00 11:17:00 _Diggs_R [id number] Medic al 2021-12-18 2021-12-18 Outpatient Donta, PRIV PRIV [id number] 00:00:00 00:00:00 Kaycee [id number] 2021-12-18 2021-12-18 Kay[place]e PRIV [place] [facility] 00:00:00 00:00:00 [place], [facility] - Medic al LANGUAGE ASST: [address], Office [address] [place] [id number] , Ph. 2021-12-16 2021-12-16 Outpatient PERAZA, PRESLEY [facility] [id number] [place] 13:29:29 14:47:42 [facility] 2021-12-16 2021-12-16 Outpatient 3 PERAZAZORAIDA NicoleI [facility] [id number] [place] 13:29:29 14:47:42 [facility] 2021-12-16 2021-12-16 Outpatient PERAZAZORAIDA NicoleI [facility] [id number] [place] 00:00:00 00:00:00 [facility] 2021-12-05 2021-12-05 [facility], [id number] [facility] 09:34:18 23:59:00 Encounter Laith 03868.1.1 729 s t Peter 3.430.2.7 Hospit a .3.258149 l .8 2021-12-05 2021-12-05 Travel 1.2.840.1 1.2.092.864 [id number] Methodi 00:00:00 00:00:[address] 3.430.2.7 0.2.7.3.698 Ho spita .3.573415 084.8 l .8 2021-11-27 2021-11-27 Outpatient [facility] [id number] [facility] 01:52:00 01:52:00 _Diggs_R [id number] Medic al 2021-11-27 2021-11-27 Travel 1.2.840.1 1.2.768.001 5351 [id number] [facility] 00:00:00 00:00:[address] 3.430.2.7 0.2.7.3.698 Ho spita .3.990493 084.8 l .8 2021-11-27 2021-11-27 Transcribe Donta, 1.2.840.1 [id number] Methodi 00:00:00 00:00:00 Orders Kaycee Higgins 75353.1.[address] 3.430.2.7 Hospit a .3.804097 l .8 2021-11-25 2021-11-25 Outpatient [facility] [id number] [facility] 05:22:00 05:22:00 _Diggs_R [id number] Medic al 2021-11-25 2021-11-25 Outpatient [facility] [id number] [place] 00:00:00 00:00:00 [facility] 2021-11-25 2021-11-25 Kaycee PRIV [place] [facility] 00:00:00 00:00:00 [facility], Health - Medic al LANGUAGE ASST: [address] [address] [address], [address], [place] [address] , Ph. 2021-11-25 2021-11-25 Outpatient Longo, PRIV PRIV [id number] 00:00:00 00:00:00 Kaycee [id number]-a [id number] 2021-11-24 2021-11-24 Outpatient [facility] [id number] [facility] 09:14:00 09:14:00 _Diggs_R [id number] Medic al 2021-11-12 2021-11-12 Outpatient [facility] [id number] [facility] 10:32:00 10:32:00 _Diggs_R [id number] Medic al 2021-11-11 2021-11-11 Emergency [facility]LY [facility], [facility] [id number] [place] 15:32:00 17:59:00 [facility] 2021-11-11 2021-11-11 Outpatient [facility] [id number] [place] 09:22:13 10:07:10 [facility] 2021-11-11 2021-11-11 Outpatient [facility] [id number] [place] 09:43:27 09:47:12 [facility] 2021-11-11 2021-11-11 [facility] [id number] [place] 00:00:00 00:00:00 [facility] 2021-11-08 2021-11-09 Emergency Timur 1.2.840.1 [id number] [facility]i 21:17:00 03:19:[address] 3.430.2.7 Hospit a .3.864450 l .8 2021-10-27 2021-10-27 [facility] [id number] [place] 15:38:32 16:13:58 [facility] 2021-10-27 2021-10-27 Outpatient [facility] [id number] [place] 15:28:33 15:53:26 [facility] 2021-10-27 2021-10-27 [facility] [id number] [place] 15:00:16 15:00:16 [facility] 2021-10-27 2021-10-27 [facility] [id number] [place] 00:00:00 00:00:00 [facility] 2021-10-27 2021-10-27 [facility] [id number] [place] 00:00:00 00:00:00 [facility] 2021-09-14 2021-09-14 Emergency GABRIELLA COREA [facility] [id number] [place] 00:00:00 00:00:[address] 2021-08-22 2021-08-22 Emergency SAIGE, [facility] [id number] [place] 00:00:00 00:00:00 CASH [facility] 2021-07-22 2021-07-22 Outpatient [facility] [id number] [place] 00:00:00 00:00:00 [facility] 2021-07-17 2021-07-17 Outpatient ABOUGHALI, [facility] [id number] [place] 07:38:50 15:27:52 [facility] 2021-05-16 2021-05-16 Outpatient MARYANN, [facility] [id number] [place] 12:55:35 13:20:54 [facility] 2021-04-03 2021-04-03 Outpatient ABOUGHALI, [facility] [id number] [place] 10:24:01 11:40:13 [facility] 2021-04-03 2021-04-03 [facility] [id number] [place] 11:20:44 11:27:55 [facility] 2021-04-03 2021-04-03 [facility] [id number] [place] 00:00:00 00:00:00 [facility] 2021-02-10 2021-02-10 [facility] [id number] [place] 07:38:38 14:43:22 [facility] 2021-01-20 2021-01-21 [facility] [id number] [place] 21:01:36 01:40:00 r Dav 00 [facility] 2021-01-20 2021-01-21 Emergency nullFlavo [facility] [id number] [place] 21:01:36 01:40:00 r Dav [address] [facility] 2021-01-20 2021-01-20 Outpatient Paul, [facility] [id number] 16:01:36 20:40:00 Domingo 2021-01-20 2021-01-20 Emergency E PAUL, [facility] [id number] [facility] 16:01:00 20:40:00 DOMINGO 2021-01-20 2021-01-20 [facility] [id number] [place] 10:49:10 12:23:17 [facility] 2021-01-20 2021-01-20 Outpatient [facility] [id number] [place] 11:36:48 11:56:15 [facility] 2021-01-09 2021-01-09 Outpatient SUZETTE, [facility] [id number] [place] 11:01:40 13:18:27 [facility] 2021-01-02 2021-01-02 [facility] [id number] [place] 00:00:00 00:00:00 MICHELLE [address] 2020-12-25 2020-12-25 Outpatient LARRY-YU [facility] [id number] [place] 00:00:00 00:00:00 Y, G[facility]MEZ [facility] 2020-12-25 2020-12-25 Outpatient YING GALVAN [facility] [id number] [place] 00:00:00 00:00:00 [facility] 2020-12-10 2020-12-10 Outpatient TATO CONNOLLY [facility] [id number] [place] 00:00:00 00:00:00 [facility] 2020-11-28 2020-11-28 Outpatient ABNER MORALES [facility] [id number] [place] 09:52:10 10:35:59 [facility] 2020-11-28 2020-11-28 [facility] [id number] [place] 08:52:57 09:35:01 [facility] 2020-11-28 2020-11-28 [facility] [id number] [place] 00:00:00 00:00:00 [facility] 2020-11-26 2020-11-26 Outpatient LARRY-YU [facility] [id number] [place] 10:26:31 12:37:58 Y, GÓMEZ [facility] 2020-11-26 2020-11-26 Outpatient LARRY-SHARRONLE [facility] [id number] [place] 00:00:00 00:00:00 Y, GÓMEZ [facility] 2020-11-22 2020-11-22 Outpatient KITTY [facility] [id number] [place] 09:06:46 09:06:46 [facility] 2020-11-21 2020-11-21 Outpatient MEGAN [facility] [id number] [place] 00:00:00 00:00:00 [facility] 2020-11-21 2020-11-21 Outpatient WILLIAM, [facility] [id number] [place] 00:00:00 00:00:[address] [facility] 2020-11-18 2020-11-18 Outpatient SUZETTE, [facility] [id number] [place] 07:34:19 14:53:54 [facility] 2020-11-14 2020-11-14 Outpatient MEGAN, [place] [id number] [place] 00:00:00 00:00:00 [facility] 2020-11-12 2020-11-12 Outpatient WILLIAM, [facility] [id number] [place] 19:20:48 23:59:[address] [facility] 2020-11-07 2020-11-07 Outpatient WILLIAM, [facility] [id number] [place] 10:15:36 16:17:[address] [facility] 2020-11-07 2020-11-07 Outpatient MEGAN, [facility] [id number] [place] 00:00:00 00:00:00 [facility] 2020-11-06 2020-11-06 Outpatient ANDREW, ABNER [facility] [id number] [place] 09:10:44 09:31:28 [facility] 2020-11-06 2020-11-06 Outpatient ANDREW [facility] [id number] [place] 09:03:03 09:13:38 [facility] 2020-11-06 2020-11-06 Outpatient ANDREW, ABNER [facility] [id number] [place] 00:00:00 00:00:00 [facility] 2020-11-06 2020-11-06 Outpatient JOAN, [facility] [id number] [place] 00:00:00 00:00:00 Counts include 234 beds at the [facility] 2020-11-04 2020-11-04 Emergency ROLOFORMERLY [facility] [id number] [place] 07:18:00 08:55:00 [facility] 2020-10-31 2020-10-31 [facility] [id number] [place] 00:00:00 00:00:00 [facility] 2020-10-24 2020-10-24 [facility] [id number] [place] 08:03:09 08:03:09 [facility] 2020-10-23 2020-10-23 Outpatient LAKESHIA [facility] [id number] [place] 07:29:24 12:11:59 Y, GÓMEZ [facility] 2020-10-23 2020-10-23 Outpatient [facility] [id number] [place] 00:00:00 00:00:00 [facility] 2020-10-23 2020-10-23 Outpatient [facility] [id number] [place] 00:00:00 00:00:00 [facility] 2020-10-17 2020-10-17 [facility] [id number] [place] 00:00:00 00:00:00 [facility] 2020-10-10 2020-10-10 [facility] [id number] [place] 07:17:49 15:53:36 [facility] 2020-10-03 2020-10-03 [facility] [id number] [place] 07:29:37 07:29:37 [facility] 2020-09-26 2020-09-26 [facility] [id number] [place] 07:11:20 07:11:20 [facility] 2020-07-24 2020-07-24 [facility] [id number] [place] 00:00:00 00:00:00 [facility] 2020-01-25 2020-01-25 Emergency [facility] [id number] [place] 00:00:00 00:00:00 CASH Dugan [facility] 2019-11-01 2019-11-01 Outpatient [facility] [id number] [place] 00:00:00 00:00:00 [facility] 2019-10-19 2019-10-19 Outpatient [facility] [id number] [place] 00:00:00 00:00:00 [facility] 2019-10-11 2019-10-11 Outpatient [facility] [id number] [place] 00:00:00 00:00:00 [facility] 2019-09-28 2019-09-28 Outpatient [facility] [id number] [place] 00:00:00 00:00:00 Health 2019-09-22 2019-09-22 Outpatient [facility] [id number] [place] 00:00:00 00:00:00 Health 2019-09-22 2019-09-22 Outpatient [facility] [id number] [place] 00:00:00 00:00:00 [facility] 2019-09-08 2019-09-08 Outpatient [facility] [id number] [place] 00:00:00 00:00:00 [facility] 2019-09-06 2019-09-06 Outpatient [facility] [id number] [place] 00:00:00 00:00:00 [facility] 2019-08-29 2019-08-29 Outpatient [facility] [id number] [place] 08:07:37 08:07:37 [facility] 2019-08-11 2019-08-11 Outpatient [facility] [id number] [place] 14:34:35 14:34:35 [facility] 2019-08-11 2019-08-11 Outpatient [facility] [id number] [place] 14:10:42 14:10:42 [facility] 2019-08-11 2019-08-11 Outpatient [facility] [id number] [place] 00:00:00 00:00:00 [facility] 2019-08-03 2019-08-03 Outpatient [facility] [id number] [place] 10:45:43 10:45:43 [facility] 2019-08-01 2019-08-01 Outpatient [facility] [id number] [place] 08:17:31 08:17:31 [facility] 2019-07-12 2019-07-12 Outpatient [facility] [id number] [place] 13:34:12 13:34:12 [facility] 2019-07-10 2019-07-10 Outpatient [facility] [id number] [place] 10:18:59 10:18:59 [facility] 2019-07-10 2019-07-10 Outpatient [facility] [id number] [place] 09:23:42 09:23:42 [facility] 2019-07-10 2019-07-10 Outpatient [facility] [id number] [place] 00:00:00 00:00:00 [facility] 2019-07-05 2019-07-05 Outpatient [facility] [id number] [place] 00:00:00 00:00:00 [facility] 2019-06-21 2019-06-21 Outpatient [facility] [id number] [place] 14:43:36 14:43:36 [facility] 2019-05-31 2019-05-31 Outpatient [facility] [id number] [place] 09:01:41 09:01:41 [facility] 2019-05-31 2019-05-31 Outpatient [facility] [id number] [place] 00:00:00 00:00:00 [facility] 2019-04-21 2019-04-21 Outpatient [facility] [id number] [place] 00:00:00 00:00:00 [facility] 2019-04-14 2019-04-14 Outpatient [facility] [id number] [place] 14:55:03 14:55:03 [facility] 2019-04-07 2019-04-07 Outpatient [facility] [id number] [place] 00:00:00 00:00:00 [facility] 2019-04-07 2019-04-07 Outpatient [facility] [id number] [place] 00:00:00 00:00:00 [facility] 2019-04-07 2019-04-07 Outpatient [facility] [id number] [place] 00:00:00 00:00:00 [facility] 2019-04-06 2019-04-06 Outpatient [facility] [id number] [place] 00:00:00 00:00:00 [facility] 2019-04-05 2019-04-05 Outpatient [facility] [id number] [place] 00:00:00 00:00:00 [facility] 2019-03-29 2019-03-29 Outpatient [facility] [id number] [place] 15:23:28 15:23:28 [facility] 2019-03-28 2019-03-28 Outpatient [facility] [id number] [place] 16:10:03 16:10:03 [facility] 2019-03-28 2019-03-28 Outpatient [facility] [id number] [place] 14:56:12 14:56:12 [facility] 2019-03-28 2019-03-28 Outpatient [facility] [id number] [place] 00:00:00 00:00:00 [facility] 2019-03-24 2019-03-24 Outpatient [facility] [id number] [place] 15:03:38 15:03:38 [facility] 2019-03-10 2019-03-10 Outpatient [facility] [id number] [place] 00:00:00 00:00:00 [facility] 2019-03-09 2019-03-09 Outpatient [facility] [id number] [place] 14:32:57 14:32:57 [facility] 2019-03-03 2019-03-03 Outpatient [facility] [id number] [place] 13:53:33 13:53:33 [facility] 2019-02-23 2019-02-23 Outpatient [facility] [id number] [place] 13:41:45 13:41:45 [facility] 2019-02-16 2019-02-16 Outpatient [facility] [id number] [place] 14:30:15 14:30:15 [facility] 2019-02-09 2019-02-09 Outpatient [facility] [id number] [place] 00:00:00 00:00:00 [facility] 2019-01-18 2019-01-18 Outpatient [facility] [id number] [place] 15:15:44 15:15:44 [facility] 2019-01-11 2019-01-11 Outpatient [facility] [id number] [place] 00:00:00 00:00:00 [facility] 2019-01-04 2019-01-04 Outpatient [facility] [id number] [place] 00:00:00 00:00:00 [facility] 2019-01-02 2019-01-02 Outpatient [facility] [id number] [place] 10:29:45 10:29:45 [facility] 2018-12-20 2018-12-20 Outpatient [facility] [id number] [place] 14:29:22 14:29:22 [facility] 2018-12-12 2018-12-12 Outpatient [facility] [id number] [place] 00:00:00 00:00:00 [facility] 2018-12-07 2018-12-07 Outpatient [facility] [id number] [place] 00:00:00 00:00:00 [facility] 2018-11-18 2018-11-18 Outpatient [facility] [id number] [place] 00:00:00 00:00:00 [facility] 2018-10-27 2018-10-27 Outpatient [facility] [id number] [place] 00:00:00 00:00:00 [facility] 2018-10-25 2018-10-25 Outpatient [facility] [id number] [place] 09:12:01 09:12:01 [facility] 2018-10-25 2018-10-25 Outpatient [facility] [id number] [place] 00:00:00 00:00:00 [facility] 2018-09-29 2018-09-29 Outpatient [facility] [id number] [place] 11:41:40 11:41:40 [facility] 2018-09-22 2018-09-22 Outpatient [facility] [id number] [place] 00:00:00 00:00:00 [facility] 2018-09-21 2018-09-21 Outpatient [facility] [id number] [place] 13:17:51 13:17:51 [facility] 2018-08-08 2018-08-08 Outpatient [facility] [id number] [place] 15:08:56 15:08:56 [facility] 2018-08-08 2018-08-08 Outpatient [facility] [id number] [place] 13:50:11 13:50:11 [facility] 2018-04-20 2018-04-20 Outpatient [facility] [id number] [place] 00:00:00 00:00:00 [facility] 2018-04-11 2018-04-11 Outpatient [facility] [id number] [place] 00:00:00 00:00:00 [facility] 2018-03-24 2018-03-24 Outpatient [facility] [id number] [place] 14:30:08 14:30:08 [facility] 2018-03-11 2018-03-11 Outpatient [facility] [id number] [place] 08:59:56 08:59:56 [facility] 2018-03-09 2018-03-09 Outpatient [facility] [id number] [place] 15:10:05 15:10:05 [facility] 2018-02-25 2018-02-25 Outpatient [facility] [id number] [place] 00:00:00 00:00:00 [facility] 2018-02-22 2018-02-22 Outpatient [facility] [id number] [place] 09:47:44 09:47:44 [facility] 2018-02-01 2018-02-01 Outpatient [facility] [id number] [place] 15:31:00 15:31:00 [facility] 2018-02-01 2018-02-01 Outpatient [facility] [id number] [place] 00:00:00 00:00:00 [facility] 2018-01-28 2018-01-28 Outpatient [facility] [id number] [place] 14:25:09 14:25:09 [facility] 2018-01-13 2018-01-13 Outpatient [facility] [id number] [place] 00:00:00 00:00:00 [facility] 2018-01-07 2018-01-07 Outpatient [facility] [id number] [place] 00:00:00 00:00:00 [facility] 2018-01-06 2018-01-06 Outpatient [facility] [id number] [place] 08:49:34 08:49:34 [facility] 2018-01-03 2018-01-03 Outpatient [facility] [id number] [place] 09:36:54 09:36:54 [facility] 2017-12-23 2017-12-23 Outpatient [facility] [id number] [place] 09:40:46 09:40:46 [facility] 2017-12-09 2017-12-09 Outpatient [facility] [id number] [place] 15:13:23 15:13:23 [facility] 2017-11-25 2017-11-25 Outpatient [facility] [id number] [place] 00:00:00 00:00:00 [facility] 2017-11-24 2017-11-24 Outpatient [facility] [id number] [place] 15:38:59 15:38:59 [facility] 2017-11-24 2017-11-24 Outpatient [facility] [id number] [place] 00:00:00 00:00:00 [facility] 2017-11-22 2017-11-22 Outpatient [facility] [id number] [place] 15:36:55 15:36:55 [facility] 2017-11-17 2017-11-17 Outpatient [facility] [id number] [place] 00:00:00 00:00:00 [facility] 2017-11-11 2017-11-11 Outpatient [facility] [id number] [place] 14:05:46 14:05:46 [facility] 2017-11-10 2017-11-10 Outpatient [facility] [id number] [place] 00:00:00 00:00:00 [facility] 2017-11-03 2017-11-03 Outpatient [facility] [id number] [place] 00:00:00 00:00:00 [facility] 2017-10-27 2017-10-27 Outpatient [facility] [id number] [place] 00:00:00 00:00:00 [facility] 2017-10-20 2017-10-20 Outpatient [facility] [id number] [place] 00:00:00 00:00:00 [facility] 2017-10-13 2017-10-13 Outpatient [facility] [id number] [place] 00:00:00 00:00:00 [facility] 2017-10-08 2017-10-08 Outpatient [facility] [id number] [place] 13:12:58 13:12:58 [facility] 2017-10-08 2017-10-08 Outpatient [facility] [id number] [place] 00:00:00 00:00:00 [facility] 2017-10-04 2017-10-04 Outpatient [facility] [id number] [place] 00:00:00 00:00:00 [facility] 2017-10-01 2017-10-01 Outpatient [facility] [id number] [place] 16:05:17 16:05:17 [facility] 2017-10-01 2017-10-01 Outpatient [facility] [id number] [place] 15:08:55 15:08:55 [facility] 2017-09-09 2017-09-09 Outpatient [facility] [id number] [place] 09:51:17 09:51:17 [facility] 2017-09-08 2017-09-08 Outpatient [facility] [id number] [place] 14:31:52 14:31:52 [facility] 2017-07-28 2017-07-28 Outpatient [facility] [id number] [place] 09:51:18 09:51:18 [facility] 2017-07-18 2017-07-18 Emergency [facility] [id number] [place] 14:53:14 14:53:14 [facility] 2017-07-18 2017-07-18 Inpatient [facility] [id number] [place] 12:13:57 12:13:57 [facility] 2017-07-07 2017-07-07 Outpatient [facility] [id number] [place] 14:50:08 14:50:08 [facility] 2017-06-11 2017-06-11 Outpatient [facility] [id number] [place] 13:28:35 13:28:35 [facility] 2017-06-10 2017-06-10 Outpatient [facility] [id number] [place] 15:39:29 15:39:29 [facility] 2017-06-08 2017-06-08 Outpatient [facility] [id number] [place] 13:05:47 13:05:47 [facility] 2017-06-04 2017-06-04 Outpatient [facility] [id number] [place] 12:40:45 12:40:45 [facility] 2017-06-03 2017-06-03 Outpatient [facility] [id number] [place] 00:00:00 00:00:00 [facility] 2017-06-01 2017-06-01 Outpatient [facility] [id number] [place] 12:36:26 12:36:26 [facility] 2017-05-14 2017-05-14 Outpatient [facility] [id number] [place] 08:24:03 08:24:03 [facility] 2017-05-14 2017-05-14 Outpatient [facility] [id number] [place] 07:23:07 07:23:07 [facility] 2017-04-30 2017-04-30 Outpatient [facility] [id number] [place] 00:00:00 00:00:00 [facility] 2017-04-26 2017-04-26 Outpatient [facility] [id number] [place] 00:00:00 00:00:00 [facility] 2017-04-14 2017-04-14 Outpatient [facility] [id number] [place] 10:24:05 10:24:05 [facility] 2017-04-08 2017-04-08 Outpatient [facility] [id number] [place] 00:00:00 00:00:00 [facility] 2017-04-07 2017-04-07 Outpatient [facility] [id number] [place] 14:24:22 14:24:22 [facility] 2017-04-02 2017-04-02 Outpatient [facility] [id number] [place] 00:00:00 00:00:00 [facility] 2017-03-30 2017-03-30 Outpatient [facility] [id number] [place] 00:00:00 00:00:00 [facility] 2017 2017 Outpatient [facility] [id number] [place] 11:11:06 11:11:06 [facility] 2017-03-12 2017-03-12 Outpatient [facility] [id number] [place] 13:12:40 13:12:40 [facility] 2017-02-19 2017-02-19 Outpatient [facility] [id number] [place] 00:00:00 00:00:00 [facility] 2017-02-03 2017-02-03 Outpatient [facility] [id number] [place] 14:38:51 14:38:51 [facility] 2017-01-18 2017-01-18 Outpatient [facility] [id number] [place] 00:00:00 00:00:00 [facility] 2017-01-13 2017-01-13 Outpatient [facility] [id number] [place] 00:00:00 00:00:00 [facility] 2016-12-30 2016-12-30 Outpatient [facility] [id number] [place] 08:21:55 08:21:55 [facility] 2016-12-28 2016-12-28 Outpatient [facility] [id number] [place] 13:12:13 13:12:13 [facility] 2016-12-16 2016-12-16 Outpatient [facility] [id number] [place] 12:31:42 12:31:42 [facility] 2016-12-14 2016-12-14 Outpatient [facility] [id number] [place] 00:00:00 00:00:00 [facility] 2016-11-30 2016-11-30 Outpatient [facility] [id number] [place] 13:19:09 13:19:09 [facility] 2016-11-26 2016-11-26 Outpatient [facility] [id number] [place] 13:39:33 13:39:33 [facility] 2016-11-26 2016-11-26 Outpatient [facility] [id number] [place] 13:37:06 13:37:06 [facility] 2016-11-23 2016-11-23 Outpatient [facility] [id number] [place] 13:27:22 13:27:22 [facility] 2016-11-16 2016-11-16 Outpatient [facility] [id number] [place] 08:29:28 08:29:28 [facility] 2016-11-06 2016-11-06 Outpatient [facility] [id number] [place] 14:10:51 14:10:51 [facility] 2016-10-13 2016-10-13 Outpatient [facility] [id number] [place] 11:00:58 11:00:58 [facility] 2016-10-08 2016-10-08 Outpatient [facility] [id number] [place] 12:56:54 12:56:54 [facility] 2016-10-08 2016-10-08 Outpatient [facility] [id number] [place] 12:49:38 12:49:38 Health 2016-10-07 2016-10-07 Outpatient [facility] [id number] [place] 15:36:29 15:36:29 [facility] 2016-10-07 2016-10-07 Outpatient [facility] [id number] [place] 14:16:34 14:16:34 [facility] 2016-09-30 2016-09-30 Outpatient [facility] [id number] [place] 09:07:30 09:07:30 [facility] 2016-09-11 2016-09-11 Outpatient [facility] [id number] [place] 11:28:30 11:28:30 [facility] 2016-08-22 2016-08-22 Emergency [facility] [id number] [place] 22:23:29 22:23:29 [facility] 2016-08-22 2016-08-22 Emergency [facility] [id number] [place] 19:44:23 19:44:23 [facility] 2016-08-22 2016-08-22 Emergency [facility] [id number] [place] 19:17:50 19:17:50 [facility] 2016-08-22 2016-08-22 Emergency [facility] [id number] [place] 19:15:09 19:15:09 [facility] 2015-09-18 2015-09-19 Inpatient nullFlavo [facility] [id number] [place] 00:04:00 22:29:00 r [place] 04 [facility] 2015-09-18 2015-09-19 Inpatient nullFlavo [facility] [id number] [place] 00:04:00 22:29:00 r [place] 04 [facility] 2015-09-17 2015-09-19 Outpatient Prudencio, MHSE [place] [id number] 18:04:00 16:29:00 [facility] 04 2015-08-26 2015-08-26 EC nullFlavo [facility] [id number] [place] 16:33:00 22:17:00 Emergency r [place] 03 [facility] 2015-08-26 2015-08-26 EC nullFlavo [facility] [id number] [place] 16:33:00 22:17:00 Emergency r [place] 03 [facility] 2015-08-26 2015-08-26 Outpatient Mello, MHSE MHSE [id number] 10:33:00 16:17:00 [place] Josep Cotao 2015-08-15 2015-08-16 Inpatient [facility]Fl[facility] [id number] [place] 11:50:00 22:33:00 r [place] 02 [facility] 2015-08-15 2015-08-16 Inpatient [facility]Flavo [facility] [id number] [place] 11:50:00 22:33:00 r [place] 02 [facility] 2015-08-15 2015-08-16 [facility] [id number] 05:50:00 16:33:00 [place] 02 2015-06-24 2015-07-24 OP nullFlavo [facility] [id number] [place] 20:15:00 05:59:00 Recurring r Dav 01 [facility] 2015-06-24 2015-07-24 OP nullFlavo [facility] [id number] [place] 20:15:00 05:59:00 Recurring liang Demarco 01 [facility] 2015-06-24 2015-07-23 Outpatient JANICE Mcclendon SE [id number] 15:15:00 23:59:00 Sam W 2015-06-24 2015-06-25 Outpatient [facility]Fl[facility] [id number] [place] 14:21:00 04:59:00 r [place] 01 [facility] 2015-06-24 2015-06-25 Outpatient [facility]Flavo [facility] [id number] [place] 14:21:00 04:59:00 r [place] 01 [facility] 2015-06-24 2015-06-24 Outpatient JANIEC Mcclendon SE [id number] 09:21:00 23:59:00 Sam W 2015-05-23 2015-06-22 OP [facility]Flavo [facility] [id number] [place] 15:41:00 04:59:00 Recurring r Dav 00 [facility] 2015-05-23 2015-06-22 OP nullFlavo [facility] [id number] [place] 15:41:00 04:59:00 Recurring r Dav 00 [facility] 2015-05-23 2015-06-21 Outpatient JANICE Mcclendon SE [id number] 10:41:00 23:59:00 Sam W 00 2015-06-10 2015-06-10 Bedded [facility] [id number] [facility] 11:23:00 14:36:[address] 2015-06-10 2015-06-10 Bedded [facility] [id number] [facility] 11:23:00 14:36:[address] 2015-06-10 2015-06-10 Outpatient H[place], [place] [facility] [id number] 06:23:00 09:36:00 Sam W 00 Results [...] PREG TEST DATE (test code = 3576) [id number] 16:12:00 Test Item Value Reference Range Interpretation Comments POCT PREG (test code = 1605) Negative On board controls acceptable with C Yes Line (test code = 3574) POCT PREG LOT # (test code = 3575) POCT PREG TEST DATE (test code = 3576) [facility] [id number] 06:42:53 Test Item Value Reference Range Interpretation Comments GLUCOSE (test code = 92 MG/DL 70-99 2216) BUN (test code = 11 MG/DL -2207) CREATININE (test 0.74 MG/DL 0.60-1.30 code = 2214) eGFR (2020 CKD-EPI) 110 >60 (test code = 62692) ML/MIN/1.73 CALC BUN/CREAT (test 15 RATIO 6-28 code = 2235) SODIUM (test code = 142 MEQ/L 899-335 7583) POTASSIUM (test code 4.1 MEQ/L 3.5-5.4 = 2228) CHLORIDE (test code 106 MEQ/L 95-107 = 5) CARBON DIOXIDE (test 23 MEQ/L 19-31 code = 2206) CALCIUM (test code = 9.4 MG/DL 8.5-10.5 2209) PROTEIN, TOTAL (test 6.6 G/DL 6.1-8.3 code = 2229) ALBUMIN (test code = 4.2 G/DL 3.5-5.2 [...] PHOSPHATASE 84 U/L 40-114 (test code = 2203) AST (test code = 13 U/L 9-40 2217) ALT (test code = 14 U/L 5-40 2218) LIPID [id number] 06:42:53 Test Item Value Reference Range Interpretation [...] MOREINFORMATION , SEE CLIENT ANNOUNCE MENT AT [email or web address] [email or web address] RATIO LDL/HDL 1.92 RATIO <3.22 (test code = 2238) HEMOGLOBIN [id number] 04:03:53 Test Item Value Reference Range Interpretation Comments HEMOGLOBIN A1c (test 5.4 % 4.2-5.6 CP L has important code = 57639) pathology staf f changes effective 10/28. New pathology s taff will provide uninter rupted, excellent patie nt care and clinical consultation. S ee URL: [email or web address]. UNLESS O THERWISE INDICATED, ALL TESTING PERFORMED AT [facility] [employer] [address] [place] [address] RHYS BOYCE DIRECTOR: CHASE RAMOS M.D. [place] NUMBER [id number] CAP ACCREDITATION N O. [id number] CARDIAC [id number] 05:01:00 Test Item Value Reference Range Interpretation Comments HS Troponin I (test code = HS Troponin 5 I) [facility] [id number] 05:01:00 Test Item Value Reference Range Interpretation Comments Glucose Lvl (test code = Glucose Lvl) 96 70-99 [facility]2022-07-21 05:01:00 Test Item Value Reference Range Interpretation Comments BUN (test code = BUN) 16 7-22 [facility]2022-07-21 05:01:00 Test Item Value Reference Range Interpretation Comments Creatinine Lvl (test code = Creatinine 0.73 0.50-1.40 Lvl) [facility]2022-07-21 05:01:00 Test Item Value Reference Range Interpretation Comments Sodium Lvl (test code = Sodium Lvl) 141 135-145 [facility]2022-07-21 05:01:00 Test Item Value Reference Range Interpretation Comments Potassium Lvl (test code = Potassium 3.6 3.5-5.1 Lvl) [facility]2022-07-21 05:01:00 Test Item Value Reference Range Interpretation Comments Chloride Lvl (test code = Chloride Lvl) 110 95-109 [facility]2022-07-21 05:01:00 Test Item Value Reference Range Interpretation Comments CO2 (test code = CO2) 25 24-32 [facility]2022-07-21 05:01:00 Test Item Value Reference Range Interpretation Comments Calcium Lvl (test code = Calcium Lvl) 9.3 8.5-10.5 [facility]2022-07-21 05:01:00 Test Item Value Reference Range Interpretation Comments Total Protein (test code = Total 7.2 6.4-8.4 Protein) [facility]2022-07-21 05:01:00 Test Item Value Reference Range Interpretation Comments Albumin Lvl (test code = Albumin Lvl) 3.7 3.5-5.0 [facility]2022-07-21 05:01:00 Test Item Value Reference Range Interpretation Comments ALT (test code = ALT) 59 See_Comment [Auto mated message] The system which ge nerated this result transmit arvind reference range : <=65. The reference range was not used to interpr et this result as mario l/abnormal. [facility] [id number] 05:01:00 Test Item Value Reference Range Interpretation Comments AST (test code = AST) 24 See_Comment [Auto mated message] The system which ge nerated this result transmit arvind reference range : <=37. The reference range was not used to interpr et this result as mario l/abnormal. [facility] [employer] [id number] 05:01:00 Test Item Value Reference Range Interpretation Comments Alk Phos (test code = Alk Phos) 60 39-136 [facility] [id number] 05:01:00 Test Item Value Reference Range Interpretation Comments Bili Total (test code = Bili Total) 0.2 0.2-1.3 [facility] [id number] 05:01:00 Test Item Value Reference Range Interpretation Comments AGAP (test code = AGAP) 9.6 10.0-20.0 [facility] [id number] 05:01:00 Test Item Value Reference Range Interpretation Comments B/C Ratio (test code = B/C Ratio) 22 1 6-25 [facility] [id number] 05:01:00 Test Item Value Reference Range Interpretation Comments Globulin (test code = Globulin) 3.5 2.7-4.2 [facility] [id number] 05:01:00 Test Item Value Reference Range Interpretation Comments A/G Ratio (test code = A/G Ratio) 1.1 1 0.7-1.6 [facility] [id number] 05:01:00 Test Item Value Reference Range Interpretation Comments eGFR (test code = eGFR) 112 [facility] CenterQmdtbohORHPJSEMLC8340-56-98 05:01:00 Test Item Value Reference Range Interpretation Comments WBC (test code = WBC) 6.4 3.7-10.4 [facility] CenterSiddmlvJMSQSJWXCI6855-17-97 05:01:00 Test Item Value Reference Range Interpretation Comments RBC (test code = RBC) 5.28 4.20-5.40 [facility]ownWuwllqaXNNPELRSAE6348-14-39 05:01:00 Test Item Value Reference Range Interpretation Comments Hgb (test code = Hgb) 14.1 12.0-16.0 [facility] UptownCtoslwiPTDMPXSGDV9709-01-91 05:01:00 Test Item Value Reference Range Interpretation Comments Hct (test code = Hct) 43.0 36.0-48.0 [facility] UptownQtqwaygVURVNNMDEO8915-28-28 05:01:00 Test Item Value Reference Range Interpretation Comments MCV (test code = MCV) 81.4 80.0-98.0 [facility] UptownEltdlqhDLHFNLKDQQ7042-76-86 05:01:00 Test Item Value Reference Range Interpretation Comments MCH (test code = MCH) 26.7 pg 27.0-31.0 [facility] UptownKixwklbKZIADCADHA4614-42-35 05:01:00 Test Item Value Reference Range Interpretation Comments MCHC (test code = MCHC) 32.9 32.0-36.0 [facility] UptownNxloxrnCVWELIHJLX3530-43-47 05:01:00 Test Item Value Reference Range Interpretation Comments RDW (test code = RDW) 14.1 11.5-14.5 [facility] UptownCikbzntSVOKYMBYYL9539-53-52 05:01:00 Test Item Value Reference Range Interpretation Comments Platelet (test code = Platelet) 237 133-450 [facility] UptownYmrtevfBXGCUXEBEL6064-19-09 05:01:00 Test Item Value Reference Range Interpretation Comments MPV (test code = MPV) 9.1 7.4-10.4 [facility] UptownGrdgbgsBXLXVDGDJR7579-08-19 05:01:00 Test Item Value Reference Range Interpretation Comments PT (test code = PT) 12.4 s 12.0-14.7 [facility] UptownHkxpgbkKZSSSKBYAL8673-35-22 05:01:00 Test Item Value Reference Range Interpretation Comments INR (test code = INR) 0.93 1 0.85-1.17 [facility] UptownOwdnhhnEYEPZGIDMZ9208-78-10 05:01:00 Test Item Value Reference Range Interpretation Comments PTT (test code = PTT) 26.5 s 22.9-35.8 [facility] UptownIzdmgpeJNBRTDXPCT1272-96-34 05:01:00 Test Item Value Reference Range Interpretation Comments Segs (test code = Segs) 40.0 45.0-75.0 [place] [id number] 05:01:00 Test Item Value Reference Range Interpretation Comments Lymphocytes (test code = Lymphocytes) 49.7 20.0-40.0 [facility] UptownIdawmhpCIWOKSREQY8864-68-70 05:01:00 Test Item Value Reference Range Interpretation Comments Monocytes (test code = Monocytes) 8.5 2.0-12.0 [facility] UptownCjrnckbSUVGAJJNTH3678-01-24 05:01:00 Test Item Value Reference Range Interpretation Comments Eosinophils (test code = 1.0 See_Comment [A utomated message] The Eosinophils) system which ge nerated this result tra nsmitted reference range : <=4.0. The reference r kat was not used to int erpret this result as normal/abnormal . [facility] UptownZsmnbcuHFBVZQUCQI6521-36-45 05:01:00 Test Item Value Reference Range Interpretation Comments Basophils (test code = 0.8 See_Comment [Aut omated message] The Basophils) system which ge nerated this result tra nsmitted reference range : <=1.0. The reference r kat was not used to int erpret this result as normal/abnormal . [facility] UptownPlanfszBQTFDASOSB7523-24-47 05:01:00 Test Item Value Reference Range Interpretation Comments Neutrophils # (test code = Neutrophils 2.5 1.5-8.1 #) [facility] UptownZeuwxxtOFFVMLXNKS8901-57-58 05:01:00 Test Item Value Reference Range Interpretation Comments Lymphocytes # (test code = Lymphocytes 3.2 1.0-5.5 #) [facility] UptownEwgrmoqLDUUTFVFBF9795-65-61 05:01:00 Test Item Value Reference Range Interpretation Comments Monocytes # (test code 0.5 See_Comment [Aut omated message] The = Monocytes #) system which generated this result tra nsmitted reference range : <=0.8. The reference r kat was not used to int erpret this result as normal/abnormal . [facility] UptownZedfdadQVIAZBTYDL3304-31-27 05:01:00 Test Item Value Reference Range Interpretation Comments Eosinophils # (test code 0.1 See_Comment [A utomated message] The = Eosinophils #) system whic h generated this result tra nsmitted reference range : <=0.5. The reference r kat was not used to int erpret this result as normal/abnormal . [facility] [id number] 05:01:00 Test Item Value Reference Range Interpretation Comments HS Troponin I (test code = HS Troponin 5 I) [facility]2022-07-21 05:01:00 Test Item Value Reference Range Interpretation Comments Glucose Lvl (test code = Glucose Lvl) 96 70-99 [facility]2022-07-21 05:01:00 Test Item Value Reference Range Interpretation Comments BUN (test code = BUN) 16 7-22 [facility]2022-07-21 05:01:00 Test Item Value Reference Range Interpretation Comments Creatinine Lvl (test code = Creatinine 0.73 0.50-1.40 Lvl) [facility]2022-07-21 05:01:00 Test Item Value Reference Range Interpretation Comments Sodium Lvl (test code = Sodium Lvl) 141 135-145 [facility]2022-07-21 05:01:00 Test Item Value Reference Range Interpretation Comments Potassium Lvl (test code = Potassium 3.6 3.5-5.1 Lvl) [facility]2022-07-21 05:01:00 Test Item Value Reference Range Interpretation Comments Chloride Lvl (test code = Chloride Lvl) 110 95-109 [facility]2022-07-21 05:01:00 Test Item Value Reference Range Interpretation Comments CO2 (test code = CO2) 25 24-32 [facility]2022-07-21 05:01:00 Test Item Value Reference Range Interpretation Comments Calcium Lvl (test code = Calcium Lvl) 9.3 8.5-10.5 [facility]2022-07-21 05:01:00 Test Item Value Reference Range Interpretation Comments Total Protein (test code = Total 7.2 6.4-8.4 Protein) [facility]2022-07-21 05:01:00 Test Item Value Reference Range Interpretation Comments Albumin Lvl (test code = Albumin Lvl) 3.7 3.5-5.0 [facility]2022-07-21 05:01:00 Test Item Value Reference Range Interpretation Comments ALT (test code = ALT) 59 See_Comment [Auto mated message] The system which ge nerated this result transmit arvind reference range : <=65. The reference range was not used to interpr et this result as mario l/abnormal. [facility] [id number] 05:01:00 Test Item Value Reference Range Interpretation Comments AST (test code = AST) 24 See_Comment [Auto mated message] The system which ge nerated this result transmit arvind reference range : <=37. The reference range was not used to interpr et this result as mario l/abnormal. [facility] [id number] 05:01:00 Test Item Value Reference Range Interpretation Comments Alk Phos (test code = Alk Phos) 60 39-136 [facility] [id number] 05:01:00 Test Item Value Reference Range Interpretation Comments Bili Total (test code = Bili Total) 0.2 0.2-1.3 [facility]2022-07-21 05:01:00 Test Item Value Reference Range Interpretation Comments AGAP (test code = AGAP) 9.6 10.0-20.0 [facility] [id number] 05:01:00 Test Item Value Reference Range Interpretation Comments B/C Ratio (test code = B/C Ratio) 22 1 6-25 [facility] [id number] 05:01:00 Test Item Value Reference Range Interpretation Comments Globulin (test code = Globulin) 3.5 2.7-4.2 [facility] CenterEkaya.comUNC MEDICAL CENTERBAOAG4823-00-34 05:01:00 Test Item Value Reference Range Interpretation Comments A/G Ratio (test code = A/G Ratio) 1.1 1 0.7-1.6 [facility] [id number] 05:01:00 Test Item Value Reference Range Interpretation Comments eGFR (test code = eGFR) 112 [facility] CenterDvujutaGWQGPAUXJT6649-02-48 05:01:00 Test Item Value Reference Range Interpretation Comments WBC (test code = WBC) 6.4 3.7-10.4 [facility] CenterCARD[facility]AC [id number] 05:01:00 Test Item Value Reference Range Interpretation Comments HS Troponin I (test code = HS Troponin 5 I) [facility]2022-07-21 05:01:00 Test Item Value Reference Range Interpretation Comments Glucose Lvl (test code = Glucose Lvl) 96 70-99 [facility] [id number] 05:01:00 Test Item Value Reference Range Interpretation Comments BUN (test code = BUN) 16 7-22 [facility]FhuecvsLMJFUOBIML3752-58-85 05:01:00 Test Item Value Reference Range Interpretation Comments RBC (test code = RBC) 5.28 4.20-5.40 [facility]2022-07-21 05:01:00 Test Item Value Reference Range Interpretation Comments Creatinine Lvl (test code = Creatinine 0.73 0.50-1.40 Lvl) [place] 136722-07-21 05:01:00 Test Item Value Reference Range Interpretation Comments Sodium Lvl (test code = Sodium Lvl) 141 135-145 [place] 136722-07-21 05:01:00 Test Item Value Reference Range Interpretation Comments Potassium Lvl (test code = Potassium 3.6 3.5-5.1 Lvl) [place] 136722-07-21 05:01:00 Test Item Value Reference Range Interpretation Comments Chloride Lvl (test code = Chloride Lvl) 110 95-109 [facility]2022-07-21 05:01:00 Test Item Value Reference Range Interpretation Comments CO2 (test code = CO2) 25 24-32 [place] 136722-07-21 05:01:00 Test Item Value Reference Range Interpretation Comments Calcium Lvl (test code = Calcium Lvl) 9.3 8.5-10.5 [place] 136722-07-21 05:01:00 Test Item Value Reference Range Interpretation Comments Total Protein (test code = Total 7.2 6.4-8.4 Protein) [place] 136722-07-21 05:01:00 Test Item Value Reference Range Interpretation Comments Albumin Lvl (test code = Albumin Lvl) 3.7 3.5-5.0 [place] 136722-07-21 05:01:00 Test Item Value Reference Range Interpretation Comments ALT (test code = ALT) 59 See_Comment [Auto mated message] The system which ge nerated this result transmit arvind reference range : <=65. The reference range was not used to interpr et this result as mario l/abnormal. [facility]2022-07-21 05:01:00 Test Item Value Reference Range Interpretation Comments AST (test code = AST) 24 See_Comment [Auto mated message] The system which ge nerated this result transmit arvind reference range : <=37. The reference range was not used to interpr et this result as mario l/abnormal. [facility] UptownPitxpvnYMTLADLLDF1757-56-93 05:01:00 Test Item Value Reference Range Interpretation Comments Hgb (test code = Hgb) 14.1 12.0-16.0 [place] 136722-07-21 05:01:00 Test Item Value Reference Range Interpretation Comments Alk Phos (test code = Alk Phos) 60 39-136 [facility]2022-07-21 05:01:00 Test Item Value Reference Range Interpretation Comments Bili Total (test code = Bili Total) 0.2 0.2-1.3 [place] 136722-07-21 05:01:00 Test Item Value Reference Range Interpretation Comments AGAP (test code = AGAP) 9.6 10.0-20.0 [facility]2022-07-21 05:01:00 Test Item Value Reference Range Interpretation Comments B/C Ratio (test code = B/C Ratio) 22 1 6-25 [facility]2022-07-21 05:01:00 Test Item Value Reference Range Interpretation Comments Globulin (test code = Globulin) 3.5 2.7-4.2 [facility]2022-07-21 05:01:00 Test Item Value Reference Range Interpretation Comments A/G Ratio (test code = A/G Ratio) 1.1 1 0.7-1.6 [facility]2022-07-21 05:01:00 Test Item Value Reference Range Interpretation Comments eGFR (test code = eGFR) 112 [facility] UptownTylauwjYNRJCSIEQG1800-06-30 05:01:00 Test Item Value Reference Range Interpretation Comments WBC (test code = WBC) 6.4 3.7-10.4 [place] 842182-07-21 05:01:00 Test Item Value Reference Range Interpretation Comments RBC (test code = RBC) 5.28 4.20-5.40 [facility] UptownYucpbbaBMFEOPAXZP5294-68-39 05:01:00 Test Item Value Reference Range Interpretation Comments Hgb (test code = Hgb) 14.1 12.0-16.0 [place] 842182-07-21 05:01:00 Test Item Value Reference Range Interpretation Comments Hct (test code = Hct) 43.0 36.0-48.0 [facility] UptownXjppctpVVWSKFZLGX8675-50-39 05:01:00 Test Item Value Reference Range Interpretation Comments Hct (test code = Hct) 43.0 36.0-48.0 [facility] UptownBirfgntLXASMZAAND2976-30-63 05:01:00 Test Item Value Reference Range Interpretation Comments MCV (test code = MCV) 81.4 80.0-98.0 [facility] UptownBabhrclBCVODLAQFA4528-17-73 05:01:00 Test Item Value Reference Range Interpretation Comments MCH (test code = MCH) 26.7 pg 27.0-31.0 [facility] UptownPefzsngKQFLNRQKYW0033-17-14 05:01:00 Test Item Value Reference Range Interpretation Comments MCHC (test code = MCHC) 32.9 32.0-36.0 [facility] UptownSzdqolvNFBIZMVMMD2908-87-08 05:01:00 Test Item Value Reference Range Interpretation Comments RDW (test code = RDW) 14.1 11.5-14.5 [facility] UptownGcxsmitTSNOGSYXHE8747-37-14 05:01:00 Test Item Value Reference Range Interpretation Comments Platelet (test code = Platelet) 237 133-450 [facility] UptownXwiselzPCGOIIBLUW4042-59-23 05:01:00 Test Item Value Reference Range Interpretation Comments MPV (test code = MPV) 9.1 7.4-10.4 [facility] UptownKexlpvwHUYDRBYMCT2722-24-90 05:01:00 Test Item Value Reference Range Interpretation Comments PT (test code = PT) 12.4 s 12.0-14.7 [facility] UptownMoppuvyVIWJPTIDIS2136-55-06 05:01:00 Test Item Value Reference Range Interpretation Comments INR (test code = INR) 0.93 1 0.85-1.17 [facility]ptownRzhkozqBNSYRJWKJM1998-54-87 05:01:00 Test Item Value Reference Range Interpretation Comments PTT (test code = PTT) 26.5 s 22.9-35.8 [facility] UptownUzcfnerJEGMENZOVQ3347-77-48 05:01:00 Test Item Value Reference Range Interpretation Comments MCV (test code = MCV) 81.4 80.0-98.0 [facility] UptownKnavywvOAASLTBJIJ1238-19-26 05:01:00 Test Item Value Reference Range Interpretation Comments Segs (test code = Segs) 40.0 45.0-75.0 [facility]ptownVeodsqfLODUYGFPXJ3227-00-60 05:01:00 Test Item Value Reference Range Interpretation Comments Lymphocytes (test code = Lymphocytes) 49.7 20.0-40.0 [facility] UptownTkotnqmXBOHWTRPCA4617-50-62 05:01:00 Test Item Value Reference Range Interpretation Comments Monocytes (test code = Monocytes) 8.5 2.0-12.0 [facility] UptownBgpvrqoKTGBOGNIXV6958-15-22 05:01:00 Test Item Value Reference Range Interpretation Comments Eosinophils (test code = 1.0 See_Comment [A utomated message] The Eosinophils) system which ge nerated this result tra nsmitted reference range : <=4.0. The reference r kat was not used to int erpret this result as normal/abnormal . [facility] UptownNpeyahnYQEXNKHHXJ1949-54-00 05:01:00 Test Item Value Reference Range Interpretation Comments Basophils (test code = 0.8 See_Comment [Aut omated message] The Basophils) system which ge nerated this result tra nsmitted reference range : <=1.0. The reference r kat was not used to int erpret this result as normal/abnormal . [facility] UptownEkwvtqzIZPBEDYUGX6398-17-98 05:01:00 Test Item Value Reference Range Interpretation Comments Neutrophils # (test code = Neutrophils 2.5 1.5-8.1 #) [facility] UptownIdcobmxJSSVOMIOWZ9430-49-47 05:01:00 Test Item Value Reference Range Interpretation Comments Lymphocytes # (test code = Lymphocytes 3.2 1.0-5.5 #) [facility] UptownTevuerkXPCQYZHJAL9321-52-36 05:01:00 Test Item Value Reference Range Interpretation Comments Monocytes # (test code 0.5 See_Comment [Aut omated message] The = Monocytes #) system which generated this result tra nsmitted reference range : <=0.8. The reference r kat was not used to int erpret this result as normal/abnormal . [facility] UptownGimpnwfQDUQSIDLSY6961-67-64 05:01:00 Test Item Value Reference Range Interpretation Comments Eosinophils # (test code 0.1 See_Comment [A utomated message] The = Eosinophils #) system whic h generated this result tra nsmitted reference range : <=0.5. The reference r kat was not used to int erpret this result as normal/abnormal . [facility] UptownRdguilhRQCJGDVQWV7382-14-32 05:01:00 Test Item Value Reference Range Interpretation Comments MCH (test code = MCH) 26.7 pg 27.0-31.0 [facility] UptownNnahmufIDVYIKQXNB1389-41-01 05:01:00 Test Item Value Reference Range Interpretation Comments MCHC (test code = MCHC) 32.9 32.0-36.0 [facility] UptownJljplbeCHOBFGRSLT8578-88-95 05:01:00 Test Item Value Reference Range Interpretation Comments RDW (test code = RDW) 14.1 11.5-14.5 [facility] UptownLxizwalKEBPLDWADJ0877-69-22 05:01:00 Test Item Value Reference Range Interpretation Comments Platelet (test code = Platelet) 237 133-450 [facility] UptownUvlojroQBASAJYPXZ1583-04-55 05:01:00 Test Item Value Reference Range Interpretation Comments MPV (test code = MPV) 9.1 7.4-10.4 [facility] UptownNrqqfrrKGXCTOTFMU0649-36-92 05:01:00 Test Item Value Reference Range Interpretation Comments PT (test code = PT) 12.4 s 12.0-14.7 [facility] UptownOgksnudJCCKBMBYAF0538-66-47 05:01:00 Test Item Value Reference Range Interpretation Comments INR (test code = INR) 0.93 1 0.85-1.17 [facility] UptownVfdlmegEUQGRVNWTH6900-97-17 05:01:00 Test Item Value Reference Range Interpretation Comments PTT (test code = PTT) 26.5 s 22.9-35.8 [place] 842182-07-21 05:01:00 Test Item Value Reference Range Interpretation Comments Segs (test code = Segs) 40.0 45.0-75.0 [facility]ptownWbwlkawPTDXBIRTOY6426-52-27 05:01:00 Test Item Value Reference Range Interpretation Comments Lymphocytes (test code = Lymphocytes) 49.7 20.0-40.0 [place] 842182-07-21 05:01:00 Test Item Value Reference Range Interpretation Comments Monocytes (test code = Monocytes) 8.5 2.0-12.0 [facility] UptownCeokjxfERBXWYRNVN1031-44-09 05:01:00 Test Item Value Reference Range Interpretation Comments Eosinophils (test code = 1.0 See_Comment [A utomated message] The Eosinophils) system which ge nerated this result tra nsmitted reference range : <=4.0. The reference r kat was not used to int erpret this result as normal/abnormal . [facility] UptownWlafwbcRWEKMIVTVV7850-53-71 05:01:00 Test Item Value Reference Range Interpretation Comments Basophils (test code = 0.8 See_Comment [Aut omated message] The Basophils) system which ge nerated this result tra nsmitted reference range : <=1.0. The reference r kat was not used to int erpret this result as normal/abnormal . [facility]ptownGhhezwrIKJJTKTINY2304-09-96 05:01:00 Test Item Value Reference Range Interpretation Comments Neutrophils # (test code = Neutrophils 2.5 1.5-8.1 #) [facility]CticgtoQVAFQDWJLL4015-93-49 05:01:00 Test Item Value Reference Range Interpretation Comments Lymphocytes # (test code = Lymphocytes 3.2 1.0-5.5 #) [facility] UptownLonmfttSLIMFPKLLM3240-90-23 05:01:00 Test Item Value Reference Range Interpretation Comments Monocytes # (test code 0.5 See_Comment [Aut omated message] The = Monocytes #) system which generated this result tra nsmitted reference range : <=0.8. The reference r kat was not used to int erpret this result as normal/abnormal . [facility] UptownAtyeoikKEIGYDJGBV8762-10-95 05:01:00 Test Item Value Reference Range Interpretation Comments Eosinophils # (test code 0.1 See_Comment [A utomated message] The = Eosinophils #) system whic h generated this result tra nsmitted reference range : <=0.5. The reference r kat was not used to int erpret this result as normal/abnormal . [facility] FAFMLLS9690-33-82 05:01:00 Test Item Value Reference Range Interpretation Comments HS Troponin I (test code = HS Troponin 5 I) [facility] [id number] 05:01:00 Test Item Value Reference Range Interpretation Comments Glucose Lvl (test code = Glucose Lvl) 96 70-99 [facility] [id number] 05:01:00 Test Item Value Reference Range Interpretation Comments BUN (test code = BUN) 16 7-22 [facility] [id number] 05:01:00 Test Item Value Reference Range Interpretation Comments Creatinine Lvl (test code = Creatinine 0.73 0.50-1.40 Lvl) [place] 136722-07-21 05:01:00 Test Item Value Reference Range Interpretation Comments Sodium Lvl (test code = Sodium Lvl) 141 135-145 [place] 136722-07-21 05:01:00 Test Item Value Reference Range Interpretation Comments Potassium Lvl (test code = Potassium 3.6 3.5-5.1 Lvl) [place] 136722-07-21 05:01:00 Test Item Value Reference Range Interpretation Comments Chloride Lvl (test code = Chloride Lvl) 110 95-109 [place] 136722-07-21 05:01:00 Test Item Value Reference Range Interpretation Comments CO2 (test code = CO2) 25 24-32 [place] 136722-07-21 05:01:00 Test Item Value Reference Range Interpretation Comments Calcium Lvl (test code = Calcium Lvl) 9.3 8.5-10.5 [place] 136722-07-21 05:01:00 Test Item Value Reference Range Interpretation Comments Total Protein (test code = Total 7.2 6.4-8.4 Protein) [place] 136722-07-21 05:01:00 Test Item Value Reference Range Interpretation Comments Albumin Lvl (test code = Albumin Lvl) 3.7 3.5-5.0 [place] 136722-07-21 05:01:00 Test Item Value Reference Range Interpretation Comments ALT (test code = ALT) 59 See_Comment [Auto mated message] The system which ge nerated this result transmit arvind reference range : <=65. The reference range was not used to interpr et this result as mario l/abnormal. [place] 136722-07-21 05:01:00 Test Item Value Reference Range Interpretation Comments AST (test code = AST) 24 See_Comment [Auto mated message] The system which ge nerated this result transmit arvind reference range : <=37. The reference range was not used to interpr et this result as mario l/abnormal. [place] 136722-07-21 05:01:00 Test Item Value Reference Range Interpretation Comments Alk Phos (test code = Alk Phos) 60 39-136 [place] 136722-07-21 05:01:00 Test Item Value Reference Range Interpretation Comments Bili Total (test code = Bili Total) 0.2 0.2-1.3 [facility]2022-07-21 05:01:00 Test Item Value Reference Range Interpretation Comments AGAP (test code = AGAP) 9.6 10.0-20.0 [place] 136722-07-21 05:01:00 Test Item Value Reference Range Interpretation Comments B/C Ratio (test code = B/C Ratio) 22 1 6-25 [place] 136722-07-21 05:01:00 Test Item Value Reference Range Interpretation Comments Globulin (test code = Globulin) 3.5 2.7-4.2 [facility]2022-07-21 05:01:00 Test Item Value Reference Range Interpretation Comments A/G Ratio (test code = A/G Ratio) 1.1 1 0.7-1.6 [facility]2022-07-21 05:01:00 Test Item Value Reference Range Interpretation Comments eGFR (test code = eGFR) 112 [facility]ptownHxrjuizPXFSPDBRLT4217-87-08 05:01:00 Test Item Value Reference Range Interpretation Comments WBC (test code = WBC) 6.4 3.7-10.4 [facility] UptownZrpajzbLPENZEIEUA8123-90-59 05:01:00 Test Item Value Reference Range Interpretation Comments RBC (test code = RBC) 5.28 4.20-5.40 [place] 842182-07-21 05:01:00 Test Item Value Reference Range Interpretation Comments Hgb (test code = Hgb) 14.1 12.0-16.0 [place] 842182-07-21 05:01:00 Test Item Value Reference Range Interpretation Comments Hct (test code = Hct) 43.0 36.0-48.0 [place] 842182-07-21 05:01:00 Test Item Value Reference Range Interpretation Comments MCV (test code = MCV) 81.4 80.0-98.0 [place] 842182-07-21 05:01:00 Test Item Value Reference Range Interpretation Comments MCH (test code = MCH) 26.7 pg 27.0-31.0 [place] 842182-07-21 05:01:00 Test Item Value Reference Range Interpretation Comments MCHC (test code = MCHC) 32.9 32.0-36.0 [place] 842182-07-21 05:01:00 Test Item Value Reference Range Interpretation Comments RDW (test code = RDW) 14.1 11.5-14.5 [place] 842182-07-21 05:01:00 Test Item Value Reference Range Interpretation Comments Platelet (test code = Platelet) 237 133-450 [facility] UptownDumryjsITETXRPDKI5419-45-21 05:01:00 Test Item Value Reference Range Interpretation Comments MPV (test code = MPV) 9.1 7.4-10.4 [place] 842182-07-21 05:01:00 Test Item Value Reference Range Interpretation Comments PT (test code = PT) 12.4 s 12.0-14.7 [place] 842182-07-21 05:01:00 Test Item Value Reference Range Interpretation Comments INR (test code = INR) 0.93 1 0.85-1.17 [place] 842182-07-21 05:01:00 Test Item Value Reference Range Interpretation Comments PTT (test code = PTT) 26.5 s 22.9-35.8 [place] 842182-07-21 05:01:00 Test Item Value Reference Range Interpretation Comments Segs (test code = Segs) 40.0 45.0-75.0 [place] 842182-07-21 05:01:00 Test Item Value Reference Range Interpretation Comments Lymphocytes (test code = Lymphocytes) 49.7 20.0-40.0 [place] 842182-07-21 05:01:00 Test Item Value Reference Range Interpretation Comments Monocytes (test code = Monocytes) 8.5 2.0-12.0 [place] 842182-07-21 05:01:00 Test Item Value Reference Range Interpretation Comments Eosinophils (test code = 1.0 See_Comment [A utomated message] The Eosinophils) system which ge nerated this result tra nsmitted reference range : <=4.0. The reference r kat was not used to int erpret this result as normal/abnormal . [place] 842182-07-21 05:01:00 Test Item Value Reference Range Interpretation Comments Basophils (test code = 0.8 See_Comment [Aut omated message] The Basophils) system which ge nerated this result tra nsmitted reference range : <=1.0. The reference r kat was not used to int erpret this result as normal/abnormal . [facility]ptownWvqemkfIFJKTXDGSH8916-18-42 05:01:00 Test Item Value Reference Range Interpretation Comments Neutrophils # (test code = Neutrophils 2.5 1.5-8.1 #) [facility] UptownSuuskvyABIWKXGINV1523-24-25 05:01:00 Test Item Value Reference Range Interpretation Comments Lymphocytes # (test code = Lymphocytes 3.2 1.0-5.5 #) [facility] UptownMsefzsaGXSFFTKUMS9811-02-50 05:01:00 Test Item Value Reference Range Interpretation Comments Monocytes # (test code 0.5 See_Comment [Aut omated message] The = Monocytes #) system which generated this result tra nsmitted reference range : <=0.8. The reference r kat was not used to int erpret this result as normal/abnormal . [facility] UptownBycatenQEWJYNEKEG2533-79-19 05:01:00 Test Item Value Reference Range Interpretation Comments Eosinophils # (test code 0.1 See_Comment [A utomated message] The = Eosinophils #) system whic h generated this result tra nsmitted reference range : <=0.5. The reference r kat was not used to int erpret this result as normal/abnormal . [facility]DI[facility] FFSKYVK1292-78-20 05:01:00 Test Item Value Reference Range Interpretation Comments HS Troponin I (test code = HS Troponin 5 I) [facility]2022-07-21 05:01:00 Test Item Value Reference Range Interpretation Comments Glucose Lvl (test code = Glucose Lvl) 96 70-99 [facility]2022-07-21 05:01:00 Test Item Value Reference Range Interpretation Comments BUN (test code = BUN) 16 7-22 [facility]2022-07-21 05:01:00 Test Item Value Reference Range Interpretation Comments Creatinine Lvl (test code = Creatinine 0.73 0.50-1.40 Lvl) [facility]2022-07-21 05:01:00 Test Item Value Reference Range Interpretation Comments Sodium Lvl (test code = Sodium Lvl) 141 135-145 [facility]2022-07-21 05:01:00 Test Item Value Reference Range Interpretation Comments Potassium Lvl (test code = Potassium 3.6 3.5-5.1 Lvl) [facility]2022-07-21 05:01:00 Test Item Value Reference Range Interpretation Comments Chloride Lvl (test code = Chloride Lvl) 110 95-109 [facility]2022-07-21 05:01:00 Test Item Value Reference Range Interpretation Comments CO2 (test code = CO2) 25 24-32 [place] 136722-07-21 05:01:00 Test Item Value Reference Range Interpretation Comments Calcium Lvl (test code = Calcium Lvl) 9.3 8.5-10.5 [place] 136722-07-21 05:01:00 Test Item Value Reference Range Interpretation Comments Total Protein (test code = Total 7.2 6.4-8.4 Protein) [facility]2022-07-21 05:01:00 Test Item Value Reference Range Interpretation Comments Albumin Lvl (test code = Albumin Lvl) 3.7 3.5-5.0 [place] 136722-07-21 05:01:00 Test Item Value Reference Range Interpretation Comments ALT (test code = ALT) 59 See_Comment [Auto mated message] The system which ge nerated this result transmit arvind reference range : <=65. The reference range was not used to interpr et this result as mario l/abnormal. [facility]2022-07-21 05:01:00 Test Item Value Reference Range Interpretation Comments AST (test code = AST) 24 See_Comment [Auto mated message] The system which ge nerated this result transmit arvind reference range : <=37. The reference range was not used to interpr et this result as mario l/abnormal. [facility]2022-07-21 05:01:00 Test Item Value Reference Range Interpretation Comments Alk Phos (test code = Alk Phos) 60 39-136 [place] 136722-07-21 05:01:00 Test Item Value Reference Range Interpretation Comments Bili Total (test code = Bili Total) 0.2 0.2-1.3 [place] 136722-07-21 05:01:00 Test Item Value Reference Range Interpretation Comments AGAP (test code = AGAP) 9.6 10.0-20.0 [place] 136722-07-21 05:01:00 Test Item Value Reference Range Interpretation Comments B/C Ratio (test code = B/C Ratio) 22 1 6-25 [facility]2022-07-21 05:01:00 Test Item Value Reference Range Interpretation Comments Globulin (test code = Globulin) 3.5 2.7-4.2 [facility]2022-07-21 05:01:00 Test Item Value Reference Range Interpretation Comments A/G Ratio (test code = A/G Ratio) 1.1 1 0.7-1.6 [facility]2022-07-21 05:01:00 Test Item Value Reference Range Interpretation Comments eGFR (test code = eGFR) 112 [facility]ptownUwmhpaxMPRMQOAWOY3824-28-16 05:01:00 Test Item Value Reference Range Interpretation Comments WBC (test code = WBC) 6.4 3.7-10.4 [facility] UptownBurmkskBDNAPYGFOQ1977-75-88 05:01:00 Test Item Value Reference Range Interpretation Comments RBC (test code = RBC) 5.28 4.20-5.40 [place] 842182-07-21 05:01:00 Test Item Value Reference Range Interpretation Comments Hgb (test code = Hgb) 14.1 12.0-16.0 [facility] UptownKaptesuQWPOJFGLEA7958-01-81 05:01:00 Test Item Value Reference Range Interpretation Comments Hct (test code = Hct) 43.0 36.0-48.0 [facility] UptownMsrhaxiCSXDLHWZSN0435-92-65 05:01:00 Test Item Value Reference Range Interpretation Comments MCV (test code = MCV) 81.4 80.0-98.0 [place] 842182-07-21 05:01:00 Test Item Value Reference Range Interpretation Comments MCH (test code = MCH) 26.7 pg 27.0-31.0 [place] 842182-07-21 05:01:00 Test Item Value Reference Range Interpretation Comments MCHC (test code = MCHC) 32.9 32.0-36.0 [place] 842182-07-21 05:01:00 Test Item Value Reference Range Interpretation Comments RDW (test code = RDW) 14.1 11.5-14.5 [place] 842182-07-21 05:01:00 Test Item Value Reference Range Interpretation Comments Platelet (test code = Platelet) 237 133-450 [facility] UptownCpvoznrWONGMGTMEB2189-33-44 05:01:00 Test Item Value Reference Range Interpretation Comments MPV (test code = MPV) 9.1 7.4-10.4 [facility] UptownSvpewixEGOOVTSYSS5069-97-94 05:01:00 Test Item Value Reference Range Interpretation Comments PT (test code = PT) 12.4 s 12.0-14.7 [facility] UptownAquguscBSWHWDYTTE4891-84-84 05:01:00 Test Item Value Reference Range Interpretation Comments INR (test code = INR) 0.93 1 0.85-1.17 [facility] UptownTjscjgnRGPKUAJWVX5985-59-12 05:01:00 Test Item Value Reference Range Interpretation Comments PTT (test code = PTT) 26.5 s 22.9-35.8 [place] 842182-07-21 05:01:00 Test Item Value Reference Range Interpretation Comments Segs (test code = Segs) 40.0 45.0-75.0 [place] 842182-07-21 05:01:00 Test Item Value Reference Range Interpretation Comments Lymphocytes (test code = Lymphocytes) 49.7 20.0-40.0 [facility] UptownHypnlvqEBFEPHHXBQ4888-75-80 05:01:00 Test Item Value Reference Range Interpretation Comments Monocytes (test code = Monocytes) 8.5 2.0-12.0 [facility] UptownHljcjdcBXQCJELOYI2430-14-08 05:01:00 Test Item Value Reference Range Interpretation Comments Eosinophils (test code = 1.0 See_Comment [A utomated message] The Eosinophils) system which ge nerated this result tra nsmitted reference range : <=4.0. The reference r kat was not used to int erpret this result as normal/abnormal . [facility] UptownRhtejcsVYBKIZTCLK0687-11-63 05:01:00 Test Item Value Reference Range Interpretation Comments Basophils (test code = 0.8 See_Comment [Aut omated message] The Basophils) system which ge nerated this result tra nsmitted reference range : <=1.0. The reference r kat was not used to int erpret this result as normal/abnormal . [place] 842182-07-21 05:01:00 Test Item Value Reference Range Interpretation Comments Neutrophils # (test code = Neutrophils 2.5 1.5-8.1 #) [facility] HealthXrhdxasEAGBFAQYLA7042-56-30 05:01:00 Test Item Value Reference Range Interpretation Comments Lymphocytes # (test code = Lymphocytes 3.2 1.0-5.5 #) [facility] UptownVtwwgowCGAZINCJCC7127-58-25 05:01:00 Test Item Value Reference Range Interpretation Comments Monocytes # (test code 0.5 See_Comment [Aut omated message] The = Monocytes #) system which generated this result tra nsmitted reference range : <=0.8. The reference r kat was not used to int erpret this result as normal/abnormal . [facility]ptownAkmxdikKHWVJGYJZF4061-94-82 05:01:00 Test Item Value Reference Range Interpretation Comments Eosinophils # (test code 0.1 See_Comment [A utomated message] The = Eosinophils #) system whic h generated this result tra nsmitted reference range : <=0.5. The reference r kat was not used to int erpret this result as normal/abnormal . [facility] JFYPWKR8413-49-81 05:01:00 Test Item Value Reference Range Interpretation Comments HS Troponin I (test code = HS Troponin 5 I) [facility]2022-07-21 05:01:00 Test Item Value Reference Range Interpretation Comments Glucose Lvl (test code = Glucose Lvl) 96 70-99 [facility]2022-07-21 05:01:00 Test Item Value Reference Range Interpretation Comments BUN (test code = BUN) 16 7-22 [facility]2022-07-21 05:01:00 Test Item Value Reference Range Interpretation Comments Creatinine Lvl (test code = Creatinine 0.73 0.50-1.40 Lvl) [facility] [id number] 05:01:00 Test Item Value Reference Range Interpretation Comments Sodium Lvl (test code = Sodium Lvl) 141 135-145 [facility] [id number] 05:01:00 Test Item Value Reference Range Interpretation Comments Potassium Lvl (test code = Potassium 3.6 3.5-5.1 Lvl) [facility]2022-07-21 05:01:00 Test Item Value Reference Range Interpretation Comments Chloride Lvl (test code = Chloride Lvl) 110 95-109 [facility] [id number] 05:01:00 Test Item Value Reference Range Interpretation Comments CO2 (test code = CO2) 25 24-32 [facility] [id number] 05:01:00 Test Item Value Reference Range Interpretation Comments Calcium Lvl (test code = Calcium Lvl) 9.3 8.5-10.5 [place] 136722-07-21 05:01:00 Test Item Value Reference Range Interpretation Comments Total Protein (test code = Total 7.2 6.4-8.4 Protein) [facility]2022-07-21 05:01:00 Test Item Value Reference Range Interpretation Comments Albumin Lvl (test code = Albumin Lvl) 3.7 3.5-5.0 [facility] [id number] 05:01:00 Test Item Value Reference Range Interpretation Comments ALT (test code = ALT) 59 See_Comment [Auto mated message] The system which ge nerated this result transmit arvind reference range : <=65. The reference range was not used to interpr et this result as mario l/abnormal. [facility] [id number] 05:01:00 Test Item Value Reference Range Interpretation Comments AST (test code = AST) 24 See_Comment [Auto mated message] The system which ge nerated this result transmit arvind reference range : <=37. The reference range was not used to interpr et this result as mario l/abnormal. [facility] [id number] 05:01:00 Test Item Value Reference Range Interpretation Comments Alk Phos (test code = Alk Phos) 60 39-136 [facility] [id number] 05:01:00 Test Item Value Reference Range Interpretation Comments Bili Total (test code = Bili Total) 0.2 0.2-1.3 [facility] [id number] 05:01:00 Test Item Value Reference Range Interpretation Comments AGAP (test code = AGAP) 9.6 10.0-20.0 [facility] [id number] 05:01:00 Test Item Value Reference Range Interpretation Comments B/C Ratio (test code = B/C Ratio) 22 1 6-25 [facility] [id number] 05:01:00 Test Item Value Reference Range Interpretation Comments Globulin (test code = Globulin) 3.5 2.7-4.2 [facility]2022-07-21 05:01:00 Test Item Value Reference Range Interpretation Comments A/G Ratio (test code = A/G Ratio) 1.1 1 0.7-1.6 [facility]2022-07-21 05:01:00 Test Item Value Reference Range Interpretation Comments eGFR (test code = eGFR) 112 [facility]ownKtqvwrlLNPFHQYHCW7365-26-88 05:01:00 Test Item Value Reference Range Interpretation Comments WBC (test code = WBC) 6.4 3.7-10.4 [facility]ptownOnyaovmOFBOFRGVED3070-41-37 05:01:00 Test Item Value Reference Range Interpretation Comments RBC (test code = RBC) 5.28 4.20-5.40 [place] 842182-07-21 05:01:00 Test Item Value Reference Range Interpretation Comments Hgb (test code = Hgb) 14.1 12.0-16.0 [place] 842182-07-21 05:01:00 Test Item Value Reference Range Interpretation Comments Hct (test code = Hct) 43.0 36.0-48.0 [facility] UptownXhldregFUJWHGVAFV4822-68-32 05:01:00 Test Item Value Reference Range Interpretation Comments MCV (test code = MCV) 81.4 80.0-98.0 [facility] UptownEyamiuzEXACINTVLJ6988-47-01 05:01:00 Test Item Value Reference Range Interpretation Comments MCH (test code = MCH) 26.7 pg 27.0-31.0 [facility] UptownOuhfearOZVJDCBWTT8086-72-60 05:01:00 Test Item Value Reference Range Interpretation Comments MCHC (test code = MCHC) 32.9 32.0-36.0 [facility] UptownVmczydeVWAIYMIVCB0977-74-08 05:01:00 Test Item Value Reference Range Interpretation Comments RDW (test code = RDW) 14.1 11.5-14.5 [facility] UptownMmmavipEGGDXDIFSL5689-89-15 05:01:00 Test Item Value Reference Range Interpretation Comments Platelet (test code = Platelet) 237 133-450 [facility] UptownRqtgvwpSCCTLUBAVF4051-40-28 05:01:00 Test Item Value Reference Range Interpretation Comments MPV (test code = MPV) 9.1 7.4-10.4 [place] 842182-07-21 05:01:00 Test Item Value Reference Range Interpretation Comments PT (test code = PT) 12.4 s 12.0-14.7 [facility] UptownYzwmcckDRMFCDKHIG8031-62-78 05:01:00 Test Item Value Reference Range Interpretation Comments INR (test code = INR) 0.93 1 0.85-1.17 [place] 842182-07-21 05:01:00 Test Item Value Reference Range Interpretation Comments PTT (test code = PTT) 26.5 s 22.9-35.8 [place] 842182-07-21 05:01:00 Test Item Value Reference Range Interpretation Comments Segs (test code = Segs) 40.0 45.0-75.0 [place] 842182-07-21 05:01:00 Test Item Value Reference Range Interpretation Comments Lymphocytes (test code = Lymphocytes) 49.7 20.0-40.0 [place] 842182-07-21 05:01:00 Test Item Value Reference Range Interpretation Comments Monocytes (test code = Monocytes) 8.5 2.0-12.0 [facility] UptownIadbsssCSBVQCMRWL7604-06-62 05:01:00 Test Item Value Reference Range Interpretation Comments Eosinophils (test code = 1.0 See_Comment [A utomated message] The Eosinophils) system which ge nerated this result tra nsmitted reference range : <=4.0. The reference r kat was not used to int erpret this result as normal/abnormal . [facility] UptownYevgnguBGBDMUFCAH0461-74-72 05:01:00 Test Item Value Reference Range Interpretation Comments Basophils (test code = 0.8 See_Comment [Aut omated message] The Basophils) system which ge nerated this result tra nsmitted reference range : <=1.0. The reference r kat was not used to int erpret this result as normal/abnormal . [facility] UptownGyxjzqsXIJISBIGPU2704-63-14 05:01:00 Test Item Value Reference Range Interpretation Comments Neutrophils # (test code = Neutrophils 2.5 1.5-8.1 #) [facility] UptownUmokotwLWBJEYVTFS9914-09-94 05:01:00 Test Item Value Reference Range Interpretation Comments Lymphocytes # (test code = Lymphocytes 3.2 1.0-5.5 #) [facility] UptownXnmovypKOMWATZEEJ7542-88-91 05:01:00 Test Item Value Reference Range Interpretation Comments Monocytes # (test code 0.5 See_Comment [Aut omated message] The = Monocytes #) system which generated this result tra nsmitted reference range : <=0.8. The reference r kat was not used to int erpret this result as normal/abnormal . [facility] CenterVmxggarDLRQLMXZKB0506-11-31 05:01:00 Test Item Value Reference Range Interpretation Comments Eosinophils # (test code 0.1 See_Comment [A utomated message] The = Eosinophils #) system whic h generated this result tra nsmitted reference range : <=0.5. The reference r kat was not used to int erpret this result as normal/abnormal . [facility] CenterCARD[facility] [id number] 05:01:00 Test Item Value Reference Range Interpretation Comments HS Troponin I (test code = HS Troponin 5 I) [facility]2022-07-21 05:01:00 Test Item Value Reference Range Interpretation Comments Glucose Lvl (test code = Glucose Lvl) 96 70-99 [facility] [id number] 05:01:00 Test Item Value Reference Range Interpretation Comments BUN (test code = BUN) 16 7-22 [facility]2022-07-21 05:01:00 Test Item Value Reference Range Interpretation Comments Creatinine Lvl (test code = Creatinine 0.73 0.50-1.40 Lvl) [facility]2022-07-21 05:01:00 Test Item Value Reference Range Interpretation Comments Sodium Lvl (test code = Sodium Lvl) 141 135-145 [facility] [id number] 05:01:00 Test Item Value Reference Range Interpretation Comments Potassium Lvl (test code = Potassium 3.6 3.5-5.1 Lvl) [facility] CenterEkaya.comUNC MEDICAL CENTERGQVNE3904-18-11 05:01:00 Test Item Value Reference Range Interpretation Comments Chloride Lvl (test code = Chloride Lvl) 110 95-109 [facility] [id number] 05:01:00 Test Item Value Reference Range Interpretation Comments CO2 (test code = CO2) 25 24-32 [facility]2022-07-21 05:01:00 Test Item Value Reference Range Interpretation Comments Calcium Lvl (test code = Calcium Lvl) 9.3 8.5-10.5 [facility] [id number] 05:01:00 Test Item Value Reference Range Interpretation Comments Total Protein (test code = Total 7.2 6.4-8.4 Protein) [facility] [id number] 05:01:00 Test Item Value Reference Range Interpretation Comments Albumin Lvl (test code = Albumin Lvl) 3.7 3.5-5.0 [facility] [id number] 05:01:00 Test Item Value Reference Range Interpretation Comments ALT (test code = ALT) 59 See_Comment [Auto mated message] The system which ge nerated this result transmit arvind reference range : <=65. The reference range was not used to interpr et this result as mario l/abnormal. [facility] [id number] 05:01:00 Test Item Value Reference Range Interpretation Comments AST (test code = AST) 24 See_Comment [Auto mated message] The system which ge nerated this result transmit arvind reference range : <=37. The reference range was not used to interpr et this result as mario l/abnormal. [facility] [id number] 05:01:00 Test Item Value Reference Range Interpretation Comments Alk Phos (test code = Alk Phos) 60 39-136 [facility] [id number] 05:01:00 Test Item Value Reference Range Interpretation Comments Bili Total (test code = Bili Total) 0.2 0.2-1.3 [facility] [id number] 05:01:00 Test Item Value Reference Range Interpretation Comments AGAP (test code = AGAP) 9.6 10.0-20.0 [facility] [id number] 05:01:00 Test Item Value Reference Range Interpretation Comments B/C Ratio (test code = B/C Ratio) 22 1 6-25 [facility] [id number] 05:01:00 Test Item Value Reference Range Interpretation Comments Globulin (test code = Globulin) 3.5 2.7-4.2 [facility] [id number] 05:01:00 Test Item Value Reference Range Interpretation Comments A/G Ratio (test code = A/G Ratio) 1.1 1 0.7-1.6 [facility] [id number] 05:01:00 Test Item Value Reference Range Interpretation Comments eGFR (test code = eGFR) 112 [facility] UptownHfxahukOBDICIJULC2667-90-29 05:01:00 Test Item Value Reference Range Interpretation Comments WBC (test code = WBC) 6.4 3.7-10.4 [facility] UptownTvnbuygIJXFSRHSLQ4842-06-99 05:01:00 Test Item Value Reference Range Interpretation Comments RBC (test code = RBC) 5.28 4.20-5.40 [facility] UptownWevqvrxPECXQASYFP6288-31-09 05:01:00 Test Item Value Reference Range Interpretation Comments Hgb (test code = Hgb) 14.1 12.0-16.0 [facility] UptownPrvyccmYMAHBSONWZ6433-37-20 05:01:00 Test Item Value Reference Range Interpretation Comments Hct (test code = Hct) 43.0 36.0-48.0 [facility] UptownYqfeqghHASDXIENWN2520-03-33 05:01:00 Test Item Value Reference Range Interpretation Comments MCV (test code = MCV) 81.4 80.0-98.0 [facility] UptownPqvtpgjXLKXOBFGYW9122-94-08 05:01:00 Test Item Value Reference Range Interpretation Comments MCH (test code = MCH) 26.7 pg 27.0-31.0 [facility] UptownPnurxlhDGZMOGPHRQ6731-77-88 05:01:00 Test Item Value Reference Range Interpretation Comments MCHC (test code = MCHC) 32.9 32.0-36.0 [facility] UptownVfciicqORGKLEBEBO5618-78-07 05:01:00 Test Item Value Reference Range Interpretation Comments RDW (test code = RDW) 14.1 11.5-14.5 [facility] UptownKqtncseVULSBLSZWE7134-26-81 05:01:00 Test Item Value Reference Range Interpretation Comments Platelet (test code = Platelet) 237 133-450 [facility] UptownJmmfpenZQTXHLDJVX9961-31-66 05:01:00 Test Item Value Reference Range Interpretation Comments MPV (test code = MPV) 9.1 7.4-10.4 [facility] UptownIwuiymxIMNOQALYUB2074-18-97 05:01:00 Test Item Value Reference Range Interpretation Comments PT (test code = PT) 12.4 s 12.0-14.7 [facility] UptownOtgtgtkEQBUWPZIZO0332-94-98 05:01:00 Test Item Value Reference Range Interpretation Comments INR (test code = INR) 0.93 1 0.85-1.17 [facility] UptownNuzntciXHYGMIHUGD0531-15-41 05:01:00 Test Item Value Reference Range Interpretation Comments PTT (test code = PTT) 26.5 s 22.9-35.8 [place] 842182-07-21 05:01:00 Test Item Value Reference Range Interpretation Comments Segs (test code = Segs) 40.0 45.0-75.0 [place] 842182-07-21 05:01:00 Test Item Value Reference Range Interpretation Comments Lymphocytes (test code = Lymphocytes) 49.7 20.0-40.0 [place] 842182-07-21 05:01:00 Test Item Value Reference Range Interpretation Comments Monocytes (test code = Monocytes) 8.5 2.0-12.0 [place] 842182-07-21 05:01:00 Test Item Value Reference Range Interpretation Comments Eosinophils (test code = 1.0 See_Comment [A utomated message] The Eosinophils) system which ge nerated this result tra nsmitted reference range : <=4.0. The reference r kat was not used to int erpret this result as normal/abnormal . [facility] UptownUihdhaaWMPNCVJNMT9410-21-76 05:01:00 Test Item Value Reference Range Interpretation Comments Basophils (test code = 0.8 See_Comment [Aut omated message] The Basophils) system which ge nerated this result tra nsmitted reference range : <=1.0. The reference r kat was not used to int erpret this result as normal/abnormal . [facility] UptownHwwhcihZVJOTQDTOW1217-22-85 05:01:00 Test Item Value Reference Range Interpretation Comments Neutrophils # (test code = Neutrophils 2.5 1.5-8.1 #) [facility] UptownKpjvuboREPHFECOKU5995-37-15 05:01:00 Test Item Value Reference Range Interpretation Comments Lymphocytes # (test code = Lymphocytes 3.2 1.0-5.5 #) [place] 842182-07-21 05:01:00 Test Item Value Reference Range Interpretation Comments Monocytes # (test code 0.5 See_Comment [Aut omated message] The = Monocytes #) system which generated this result tra nsmitted reference range : <=0.8. The reference r kat was not used to int erpret this result as normal/abnormal . [place] 842182-07-21 05:01:00 Test Item Value Reference Range Interpretation Comments Eosinophils # (test code 0.1 See_Comment [A utomated message] The = Eosinophils #) system whic h generated this result tra nsmitted reference range : <=0.5. The reference r kat was not used to int erpret this result as normal/abnormal . [facility] [id number] 05:01:00 Test Item Value Reference Range Interpretation Comments HS Troponin I (test code = HS Troponin 5 I) [facility] [id number] 05:01:00 Test Item Value Reference Range Interpretation Comments Glucose Lvl (test code = Glucose Lvl) 96 70-99 [facility] [id number] 05:01:00 Test Item Value Reference Range Interpretation Comments BUN (test code = BUN) 16 7-22 [facility] [id number] 05:01:00 Test Item Value Reference Range Interpretation Comments Creatinine Lvl (test code = Creatinine 0.73 0.50-1.40 Lvl) [facility] [id number] 05:01:00 Test Item Value Reference Range Interpretation Comments Sodium Lvl (test code = Sodium Lvl) 141 135-145 [facility] [id number] 05:01:00 Test Item Value Reference Range Interpretation Comments Potassium Lvl (test code = Potassium 3.6 3.5-5.1 Lvl) [facility] [id number] 05:01:00 Test Item Value Reference Range Interpretation Comments Chloride Lvl (test code = Chloride Lvl) 110 95-109 [facility] [id number] 05:01:00 Test Item Value Reference Range Interpretation Comments CO2 (test code = CO2) 25 24-32 [facility] [id number] 05:01:00 Test Item Value Reference Range Interpretation Comments Calcium Lvl (test code = Calcium Lvl) 9.3 8.5-10.5 [facility] [id number] 05:01:00 Test Item Value Reference Range Interpretation Comments Total Protein (test code = Total 7.2 6.4-8.4 Protein) [facility]2022-07-21 05:01:00 Test Item Value Reference Range Interpretation Comments Albumin Lvl (test code = Albumin Lvl) 3.7 3.5-5.0 [facility] [id number] 05:01:00 Test Item Value Reference Range Interpretation Comments ALT (test code = ALT) 59 See_Comment [Auto mated message] The system which ge nerated this result transmit arvind reference range : <=65. The reference range was not used to interpr et this result as mario l/abnormal. [facility] [id number] 05:01:00 Test Item Value Reference Range Interpretation Comments AST (test code = AST) 24 See_Comment [Auto mated message] The system which ge nerated this result transmit arvind reference range : <=37. The reference range was not used to interpr et this result as mario l/abnormal. [facility] [id number] 05:01:00 Test Item Value Reference Range Interpretation Comments Alk Phos (test code = Alk Phos) 60 39-136 [facility] [id number] 05:01:00 Test Item Value Reference Range Interpretation Comments Bili Total (test code = Bili Total) 0.2 0.2-1.3 [facility] [id number] 05:01:00 Test Item Value Reference Range Interpretation Comments AGAP (test code = AGAP) 9.6 10.0-20.0 [facility] [id number] 05:01:00 Test Item Value Reference Range Interpretation Comments B/C Ratio (test code = B/C Ratio) 22 1 6-25 [facility] [id number] 05:01:00 Test Item Value Reference Range Interpretation Comments Globulin (test code = Globulin) 3.5 2.7-4.2 [facility] [id number] 05:01:00 Test Item Value Reference Range Interpretation Comments A/G Ratio (test code = A/G Ratio) 1.1 1 0.7-1.6 [facility] [id number] 05:01:00 Test Item Value Reference Range Interpretation Comments eGFR (test code = eGFR) 112 [place] 842182-07-21 05:01:00 Test Item Value Reference Range Interpretation Comments WBC (test code = WBC) 6.4 3.7-10.4 [facility] CenterXabtjntAQHPHZMTRD6701-69-82 05:01:00 Test Item Value Reference Range Interpretation Comments RBC (test code = RBC) 5.28 4.20-5.40 [facility] UptownZnnixxgKWAQCFZQNA6176-65-01 05:01:00 Test Item Value Reference Range Interpretation Comments Hgb (test code = Hgb) 14.1 12.0-16.0 [place] 842182-07-21 05:01:00 Test Item Value Reference Range Interpretation Comments Hct (test code = Hct) 43.0 36.0-48.0 [facility] UptownXthghamIDBKNZHUCR9854-52-35 05:01:00 Test Item Value Reference Range Interpretation Comments MCV (test code = MCV) 81.4 80.0-98.0 [facility] UptownMlqkwuwECMOLMUHRL8035-92-96 05:01:00 Test Item Value Reference Range Interpretation Comments MCH (test code = MCH) 26.7 pg 27.0-31.0 [facility] UptownMgomlvsFCUZIJMNST7539-09-22 05:01:00 Test Item Value Reference Range Interpretation Comments MCHC (test code = MCHC) 32.9 32.0-36.0 [facility] UptownLywmdlwKUVEOJPHAY2047-18-33 05:01:00 Test Item Value Reference Range Interpretation Comments RDW (test code = RDW) 14.1 11.5-14.5 [facility] UptownUtqbrlpUIPANFYGOE0136-93-17 05:01:00 Test Item Value Reference Range Interpretation Comments Platelet (test code = Platelet) 237 133-450 [facility] UptownVtlbdijVWJFUPXFGE4090-54-38 05:01:00 Test Item Value Reference Range Interpretation Comments MPV (test code = MPV) 9.1 7.4-10.4 [facility] UptownMdpsgrfNMSUTJOPCV0076-67-56 05:01:00 Test Item Value Reference Range Interpretation Comments PT (test code = PT) 12.4 s 12.0-14.7 [place] 842182-07-21 05:01:00 Test Item Value Reference Range Interpretation Comments INR (test code = INR) 0.93 1 0.85-1.17 [place] 842182-07-21 05:01:00 Test Item Value Reference Range Interpretation Comments PTT (test code = PTT) 26.5 s 22.9-35.8 [place] 842182-07-21 05:01:00 Test Item Value Reference Range Interpretation Comments Segs (test code = Segs) 40.0 45.0-75.0 [facility] UptownBfuccenNKEATAGWDC7152-30-43 05:01:00 Test Item Value Reference Range Interpretation Comments Lymphocytes (test code = Lymphocytes) 49.7 20.0-40.0 [facility] UptownVgzhwytRJFBGTLMNK0857-91-14 05:01:00 Test Item Value Reference Range Interpretation Comments Monocytes (test code = Monocytes) 8.5 2.0-12.0 [facility] UptownIzgxosmWUEAYSWGOR5848-40-00 05:01:00 Test Item Value Reference Range Interpretation Comments Eosinophils (test code = 1.0 See_Comment [A utomated message] The Eosinophils) system which ge nerated this result tra nsmitted reference range : <=4.0. The reference r kat was not used to int erpret this result as normal/abnormal . [facility] UptownLjgevceDPPTICPJRN3056-48-89 05:01:00 Test Item Value Reference Range Interpretation Comments Basophils (test code = 0.8 See_Comment [Aut omated message] The Basophils) system which ge nerated this result tra nsmitted reference range : <=1.0. The reference r kat was not used to int erpret this result as normal/abnormal . [facility] UptownCisnqnnGRMQKKOVXQ5859-28-50 05:01:00 Test Item Value Reference Range Interpretation Comments Neutrophils # (test code = Neutrophils 2.5 1.5-8.1 #) [facility] UptownTjkiappAVXJYWFFWL4153-59-04 05:01:00 Test Item Value Reference Range Interpretation Comments Lymphocytes # (test code = Lymphocytes 3.2 1.0-5.5 #) [facility] UptownBnnchmgUHDGLUKXSQ6891-83-57 05:01:00 Test Item Value Reference Range Interpretation Comments Monocytes # (test code 0.5 See_Comment [Aut omated message] The = Monocytes #) system which generated this result tra nsmitted reference range : <=0.8. The reference r kat was not used to int erpret this result as normal/abnormal . [facility] UptownOvqbpzyFBKUPEYVES3831-39-54 05:01:00 Test Item Value Reference Range Interpretation Comments Eosinophils # (test code 0.1 See_Comment [A utomated message] The = Eosinophils #) system whic h generated this result tra nsmitted reference range : <=0.5. The reference r kat was not used to int erpret this result as normal/abnormal . [facility] [id number] 05:01:00 Test Item Value Reference Range Interpretation Comments HS Troponin I (test code = HS Troponin 5 I) [facility]2022-07-21 05:01:00 Test Item Value Reference Range Interpretation Comments Glucose Lvl (test code = Glucose Lvl) 96 70-99 [facility]2022-07-21 05:01:00 Test Item Value Reference Range Interpretation Comments BUN (test code = BUN) 16 7-22 [facility]2022-07-21 05:01:00 Test Item Value Reference Range Interpretation Comments Creatinine Lvl (test code = Creatinine 0.73 0.50-1.40 Lvl) [facility]2022-07-21 05:01:00 Test Item Value Reference Range Interpretation Comments Sodium Lvl (test code = Sodium Lvl) 141 135-145 [facility]2022-07-21 05:01:00 Test Item Value Reference Range Interpretation Comments Potassium Lvl (test code = Potassium 3.6 3.5-5.1 Lvl) [facility]2022-07-21 05:01:00 Test Item Value Reference Range Interpretation Comments Chloride Lvl (test code = Chloride Lvl) 110 95-109 [facility]2022-07-21 05:01:00 Test Item Value Reference Range Interpretation Comments CO2 (test code = CO2) 25 24-32 [facility]2022-07-21 05:01:00 Test Item Value Reference Range Interpretation Comments Calcium Lvl (test code = Calcium Lvl) 9.3 8.5-10.5 [facility]2022-07-21 05:01:00 Test Item Value Reference Range Interpretation Comments Total Protein (test code = Total 7.2 6.4-8.4 Protein) [facility]2022-07-21 05:01:00 Test Item Value Reference Range Interpretation Comments Albumin Lvl (test code = Albumin Lvl) 3.7 3.5-5.0 [facility] [facility]2022-07-21 05:01:00 Test Item Value Reference Range Interpretation Comments ALT (test code = ALT) 59 See_Comment [Auto mated message] The system which ge nerated this result transmit arvind reference range : <=65. The reference range was not used to interpr et this result as mario l/abnormal. [facility]2022-07-21 05:01:00 Test Item Value Reference Range Interpretation Comments AST (test code = AST) 24 See_Comment [Auto mated message] The system which ge nerated this result transmit arvind reference range : <=37. The reference range was not used to interpr et this result as mario l/abnormal. [place] 136722-07-21 05:01:00 Test Item Value Reference Range Interpretation Comments Alk Phos (test code = Alk Phos) 60 39-136 [place] 136722-07-21 05:01:00 Test Item Value Reference Range Interpretation Comments Bili Total (test code = Bili Total) 0.2 0.2-1.3 [place] 136722-07-21 05:01:00 Test Item Value Reference Range Interpretation Comments AGAP (test code = AGAP) 9.6 10.0-20.0 [place] 136722-07-21 05:01:00 Test Item Value Reference Range Interpretation Comments B/C Ratio (test code = B/C Ratio) 22 1 6-25 [place] 136722-07-21 05:01:00 Test Item Value Reference Range Interpretation Comments Globulin (test code = Globulin) 3.5 2.7-4.2 [place] 136722-07-21 05:01:00 Test Item Value Reference Range Interpretation Comments A/G Ratio (test code = A/G Ratio) 1.1 1 0.7-1.6 [place] 136722-07-21 05:01:00 Test Item Value Reference Range Interpretation Comments eGFR (test code = eGFR) 112 [place] 842182-07-21 05:01:00 Test Item Value Reference Range Interpretation Comments WBC (test code = WBC) 6.4 3.7-10.4 [place] 842182-07-21 05:01:00 Test Item Value Reference Range Interpretation Comments RBC (test code = RBC) 5.28 4.20-5.40 [place] 842182-07-21 05:01:00 Test Item Value Reference Range Interpretation Comments Hgb (test code = Hgb) 14.1 12.0-16.0 [place] 842182-07-21 05:01:00 Test Item Value Reference Range Interpretation Comments Hct (test code = Hct) 43.0 36.0-48.0 [facility]ownYwwvbkzNZGPTUEKNK8139-97-93 05:01:00 Test Item Value Reference Range Interpretation Comments MCV (test code = MCV) 81.4 80.0-98.0 [facility] UptownLlpylhiPJCNHCQFHH7015-99-20 05:01:00 Test Item Value Reference Range Interpretation Comments MCH (test code = MCH) 26.7 pg 27.0-31.0 [facility] UptownLxwsbvbWWQHEQCOCM9604-40-81 05:01:00 Test Item Value Reference Range Interpretation Comments MCHC (test code = MCHC) 32.9 32.0-36.0 [facility] UptownXyytugoFZFVWRJUPS3732-60-78 05:01:00 Test Item Value Reference Range Interpretation Comments RDW (test code = RDW) 14.1 11.5-14.5 [facility]ptownKgvpwpuNVCMUAQKYN7111-01-30 05:01:00 Test Item Value Reference Range Interpretation Comments Platelet (test code = Platelet) 237 133-450 [facility] UptownDskbhagDGGZXYSUOY8607-78-42 05:01:00 Test Item Value Reference Range Interpretation Comments MPV (test code = MPV) 9.1 7.4-10.4 [facility] UptownNkyjnqaHDSIYRRAVO9318-70-36 05:01:00 Test Item Value Reference Range Interpretation Comments PT (test code = PT) 12.4 s 12.0-14.7 [facility] UptownCrmvmtaOSQAXJPZMN8716-73-17 05:01:00 Test Item Value Reference Range Interpretation Comments INR (test code = INR) 0.93 1 0.85-1.17 [facility]ptownCnnfywgTPDGKUYIZG9511-28-40 05:01:00 Test Item Value Reference Range Interpretation Comments PTT (test code = PTT) 26.5 s 22.9-35.8 [place] 842182-07-21 05:01:00 Test Item Value Reference Range Interpretation Comments Segs (test code = Segs) 40.0 45.0-75.0 [facility] UptownWjaslcnOAHCTPJYXD5963-57-47 05:01:00 Test Item Value Reference Range Interpretation Comments Lymphocytes (test code = Lymphocytes) 49.7 20.0-40.0 [facility] UptownMaasvvaHFTETYKBQW4802-78-00 05:01:00 Test Item Value Reference Range Interpretation Comments Monocytes (test code = Monocytes) 8.5 2.0-12.0 [facility]zhghomJPKYFSHLLX9747-65-81 05:01:00 Test Item Value Reference Range Interpretation Comments Eosinophils (test code = 1.0 See_Comment [A utomated message] The Eosinophils) system which ge nerated this result tra nsmitted reference range : <=4.0. The reference r kat was not used to int erpret this result as normal/abnormal . [facility] UptownOydgaaxCJHAZGHJTI8786-46-96 05:01:00 Test Item Value Reference Range Interpretation Comments Basophils (test code = 0.8 See_Comment [Aut omated message] The Basophils) system which ge nerated this result tra nsmitted reference range : <=1.0. The reference r kat was not used to int erpret this result as normal/abnormal . [facility] UptownRopaioxDBJTKGVMBR5803-13-18 05:01:00 Test Item Value Reference Range Interpretation Comments Neutrophils # (test code = Neutrophils 2.5 1.5-8.1 #) [facility] UptownZeefjkiNMHUMBIZTR8675-31-51 05:01:00 Test Item Value Reference Range Interpretation Comments Lymphocytes # (test code = Lymphocytes 3.2 1.0-5.5 #) [facility] UptownZcstjqnZMCEEDGNEC7799-24-87 05:01:00 Test Item Value Reference Range Interpretation Comments Monocytes # (test code 0.5 See_Comment [Aut omated message] The = Monocytes #) system which generated this result tra nsmitted reference range : <=0.8. The reference r kat was not used to int erpret this result as normal/abnormal . [facility] UptownHbqqtzwBJIZVWUYYG5888-12-61 05:01:00 Test Item Value Reference Range Interpretation Comments Eosinophils # (test code 0.1 See_Comment [A utomated message] The = Eosinophils #) system whic h generated this result tra nsmitted reference range : <=0.5. The reference r kat was not used to int erpret this result as normal/abnormal . [facility] [id number] 05:01:00 Test Item Value Reference Range Interpretation Comments HS Troponin I (test code = HS Troponin 5 I) [facility] CenterCHE[facility] [id number] 05:01:00 Test Item Value Reference Range Interpretation Comments Glucose Lvl (test code = Glucose Lvl) 96 70-99 [place] 136722-07-21 05:01:00 Test Item Value Reference Range Interpretation Comments BUN (test code = BUN) 16 7-22 [place] 136722-07-21 05:01:00 Test Item Value Reference Range Interpretation Comments Creatinine Lvl (test code = Creatinine 0.73 0.50-1.40 Lvl) [place] 136722-07-21 05:01:00 Test Item Value Reference Range Interpretation Comments Sodium Lvl (test code = Sodium Lvl) 141 135-145 [place] 136722-07-21 05:01:00 Test Item Value Reference Range Interpretation Comments Potassium Lvl (test code = Potassium 3.6 3.5-5.1 Lvl) [place] 136722-07-21 05:01:00 Test Item Value Reference Range Interpretation Comments Chloride Lvl (test code = Chloride Lvl) 110 95-109 [place] 136722-07-21 05:01:00 Test Item Value Reference Range Interpretation Comments CO2 (test code = CO2) 25 24-32 [place] 136722-07-21 05:01:00 Test Item Value Reference Range Interpretation Comments Calcium Lvl (test code = Calcium Lvl) 9.3 8.5-10.5 [place] 136722-07-21 05:01:00 Test Item Value Reference Range Interpretation Comments Total Protein (test code = Total 7.2 6.4-8.4 Protein) [place] 136722-07-21 05:01:00 Test Item Value Reference Range Interpretation Comments Albumin Lvl (test code = Albumin Lvl) 3.7 3.5-5.0 [place] 136722-07-21 05:01:00 Test Item Value Reference Range Interpretation Comments ALT (test code = ALT) 59 See_Comment [Auto mated message] The system which ge nerated this result transmit arvind reference range : <=65. The reference range was not used to interpr et this result as mario l/abnormal. [place] 136722-07-21 05:01:00 Test Item Value Reference Range Interpretation Comments AST (test code = AST) 24 See_Comment [Auto mated message] The system which ge nerated this result transmit arvind reference range : <=37. The reference range was not used to interpr et this result as mario l/abnormal. [facility]2022-07-21 05:01:00 Test Item Value Reference Range Interpretation Comments Alk Phos (test code = Alk Phos) 60 39-136 [place] 136722-07-21 05:01:00 Test Item Value Reference Range Interpretation Comments Bili Total (test code = Bili Total) 0.2 0.2-1.3 [place] 136722-07-21 05:01:00 Test Item Value Reference Range Interpretation Comments AGAP (test code = AGAP) 9.6 10.0-20.0 [facility]2022-07-21 05:01:00 Test Item Value Reference Range Interpretation Comments B/C Ratio (test code = B/C Ratio) 22 1 6-25 [place] 136722-07-21 05:01:00 Test Item Value Reference Range Interpretation Comments Globulin (test code = Globulin) 3.5 2.7-4.2 [place] 136722-07-21 05:01:00 Test Item Value Reference Range Interpretation Comments A/G Ratio (test code = A/G Ratio) 1.1 1 0.7-1.6 [place] 136722-07-21 05:01:00 Test Item Value Reference Range Interpretation Comments eGFR (test code = eGFR) 112 [facility] UptownDoxewocIZNYWSGOMF1282-32-08 05:01:00 Test Item Value Reference Range Interpretation Comments WBC (test code = WBC) 6.4 3.7-10.4 [place] 842182-07-21 05:01:00 Test Item Value Reference Range Interpretation Comments RBC (test code = RBC) 5.28 4.20-5.40 [place] 842182-07-21 05:01:00 Test Item Value Reference Range Interpretation Comments Hgb (test code = Hgb) 14.1 12.0-16.0 [place] 842182-07-21 05:01:00 Test Item Value Reference Range Interpretation Comments Hct (test code = Hct) 43.0 36.0-48.0 [place] 842182-07-21 05:01:00 Test Item Value Reference Range Interpretation Comments MCV (test code = MCV) 81.4 80.0-98.0 [facility] UptownTfjhcjqGPUDEVBDMX0115-13-38 05:01:00 Test Item Value Reference Range Interpretation Comments MCH (test code = MCH) 26.7 pg 27.0-31.0 [place] 842182-07-21 05:01:00 Test Item Value Reference Range Interpretation Comments MCHC (test code = MCHC) 32.9 32.0-36.0 [facility] UptownXfzeuojXELJNMUUZG3913-54-92 05:01:00 Test Item Value Reference Range Interpretation Comments RDW (test code = RDW) 14.1 11.5-14.5 [place] 842182-07-21 05:01:00 Test Item Value Reference Range Interpretation Comments Platelet (test code = Platelet) 237 133-450 [facility] UptownCabtgwbYMJMVXMTCX8319-90-19 05:01:00 Test Item Value Reference Range Interpretation Comments MPV (test code = MPV) 9.1 7.4-10.4 [place] 842182-07-21 05:01:00 Test Item Value Reference Range Interpretation Comments PT (test code = PT) 12.4 s 12.0-14.7 [facility] UptownUqsjireTPFAGREIDU6338-06-95 05:01:00 Test Item Value Reference Range Interpretation Comments INR (test code = INR) 0.93 1 0.85-1.17 [facility] UptownYicydpnZLRJYFIBTM6699-95-13 05:01:00 Test Item Value Reference Range Interpretation Comments PTT (test code = PTT) 26.5 s 22.9-35.8 [place] 842182-07-21 05:01:00 Test Item Value Reference Range Interpretation Comments Segs (test code = Segs) 40.0 45.0-75.0 [facility] UptownEmudxozGYYQHLQRLP1026-12-22 05:01:00 Test Item Value Reference Range Interpretation Comments Lymphocytes (test code = Lymphocytes) 49.7 20.0-40.0 [place] 842182-07-21 05:01:00 Test Item Value Reference Range Interpretation Comments Monocytes (test code = Monocytes) 8.5 2.0-12.0 [place] 842182-07-21 05:01:00 Test Item Value Reference Range Interpretation Comments Eosinophils (test code = 1.0 See_Comment [A utomated message] The Eosinophils) system which ge nerated this result tra nsmitted reference range : <=4.0. The reference r kat was not used to int erpret this result as normal/abnormal . [facility] HealthYscejlfFDIFRJWQYS3391-57-81 05:01:00 Test Item Value Reference Range Interpretation Comments Basophils (test code = 0.8 See_Comment [Aut omated message] The Basophils) system which ge nerated this result tra nsmitted reference range : <=1.0. The reference r kat was not used to int erpret this result as normal/abnormal . [facility] HealthQhjqhxoYJEDLZNVKZ3965-16-75 05:01:00 Test Item Value Reference Range Interpretation Comments Neutrophils # (test code = Neutrophils 2.5 1.5-8.1 #) [facility] HealthEsvcscoQAXCLCNFFL5990-00-22 05:01:00 Test Item Value Reference Range Interpretation Comments Lymphocytes # (test code = Lymphocytes 3.2 1.0-5.5 #) [facility] HealthJvnxdfoDYWHSUELYZ5194-24-10 05:01:00 Test Item Value Reference Range Interpretation Comments Monocytes # (test code 0.5 See_Comment [Aut omated message] The = Monocytes #) system which generated this result tra nsmitted reference range : <=0.8. The reference r kat was not used to int erpret this result as normal/abnormal . [facility] HealthVlhkkqdEQEAPWZUGB8765-97-09 05:01:00 Test Item Value Reference Range Interpretation Comments Eosinophils # (test code 0.1 See_Comment [A utomated message] The = Eosinophils #) system whic h generated this result tra nsmitted reference range : <=0.5. The reference r kat was not used to int erpret this result as normal/abnormal . [facility] CJLXDTM6862-00-72 05:01:00 Test Item Value Reference Range Interpretation Comments HS Troponin I (test code = HS Troponin 5 I) [facility] [id number] 05:01:00 Test Item Value Reference Range Interpretation Comments Glucose Lvl (test code = Glucose Lvl) 96 70-99 [facility] [id number] 05:01:00 Test Item Value Reference Range Interpretation Comments BUN (test code = BUN) 16 7-22 [facility] [id number] 05:01:00 Test Item Value Reference Range Interpretation Comments Creatinine Lvl (test code = Creatinine 0.73 0.50-1.40 Lvl) [place] 136722-07-21 05:01:00 Test Item Value Reference Range Interpretation Comments Sodium Lvl (test code = Sodium Lvl) 141 135-145 [place] 136722-07-21 05:01:00 Test Item Value Reference Range Interpretation Comments Potassium Lvl (test code = Potassium 3.6 3.5-5.1 Lvl) [place] 136722-07-21 05:01:00 Test Item Value Reference Range Interpretation Comments Chloride Lvl (test code = Chloride Lvl) 110 95-109 [place] 136722-07-21 05:01:00 Test Item Value Reference Range Interpretation Comments CO2 (test code = CO2) 25 24-32 [place] 136722-07-21 05:01:00 Test Item Value Reference Range Interpretation Comments Calcium Lvl (test code = Calcium Lvl) 9.3 8.5-10.5 [place] 136722-07-21 05:01:00 Test Item Value Reference Range Interpretation Comments Total Protein (test code = Total 7.2 6.4-8.4 Protein) [place] 136722-07-21 05:01:00 Test Item Value Reference Range Interpretation Comments Albumin Lvl (test code = Albumin Lvl) 3.7 3.5-5.0 [place] 136722-07-21 05:01:00 Test Item Value Reference Range Interpretation Comments ALT (test code = ALT) 59 See_Comment [Auto mated message] The system which ge nerated this result transmit arvind reference range : <=65. The reference range was not used to interpr et this result as mario l/abnormal. [place] 136722-07-21 05:01:00 Test Item Value Reference Range Interpretation Comments AST (test code = AST) 24 See_Comment [Auto mated message] The system which ge nerated this result transmit arvind reference range : <=37. The reference range was not used to interpr et this result as mario l/abnormal. [place] 136722-07-21 05:01:00 Test Item Value Reference Range Interpretation Comments Alk Phos (test code = Alk Phos) 60 39-136 [place] 136722-07-21 05:01:00 Test Item Value Reference Range Interpretation Comments Bili Total (test code = Bili Total) 0.2 0.2-1.3 [facility]2022-07-21 05:01:00 Test Item Value Reference Range Interpretation Comments AGAP (test code = AGAP) 9.6 10.0-20.0 [facility]2022-07-21 05:01:00 Test Item Value Reference Range Interpretation Comments B/C Ratio (test code = B/C Ratio) 22 1 6-25 [facility]2022-07-21 05:01:00 Test Item Value Reference Range Interpretation Comments Globulin (test code = Globulin) 3.5 2.7-4.2 [facility]2022-07-21 05:01:00 Test Item Value Reference Range Interpretation Comments A/G Ratio (test code = A/G Ratio) 1.1 1 0.7-1.6 [facility]2022-07-21 05:01:00 Test Item Value Reference Range Interpretation Comments eGFR (test code = eGFR) 112 [facility] UptownEqizuitKXSKKRZHFP6732-76-70 05:01:00 Test Item Value Reference Range Interpretation Comments WBC (test code = WBC) 6.4 3.7-10.4 [facility] UptownDwddzwtZZVCENQNWC7155-79-59 05:01:00 Test Item Value Reference Range Interpretation Comments RBC (test code = RBC) 5.28 4.20-5.40 [facility] UptownZerynliFJVIGQDXJK2059-75-01 05:01:00 Test Item Value Reference Range Interpretation Comments Hgb (test code = Hgb) 14.1 12.0-16.0 [facility] UptownWrzixxxUZNCFRPSEO0962-19-06 05:01:00 Test Item Value Reference Range Interpretation Comments Hct (test code = Hct) 43.0 36.0-48.0 [place] 842182-07-21 05:01:00 Test Item Value Reference Range Interpretation Comments MCV (test code = MCV) 81.4 80.0-98.0 [place] 842182-07-21 05:01:00 Test Item Value Reference Range Interpretation Comments MCH (test code = MCH) 26.7 pg 27.0-31.0 [place] 842182-07-21 05:01:00 Test Item Value Reference Range Interpretation Comments MCHC (test code = MCHC) 32.9 32.0-36.0 [facility] UptownNgmxykkJEQRGRBXRA0240-97-23 05:01:00 Test Item Value Reference Range Interpretation Comments RDW (test code = RDW) 14.1 11.5-14.5 [facility] UptownSnvvcggNBNZHOIPDB0638-80-27 05:01:00 Test Item Value Reference Range Interpretation Comments Platelet (test code = Platelet) 237 133-450 [facility] UptownPfqvyxpUTIZHVQKGW2916-60-66 05:01:00 Test Item Value Reference Range Interpretation Comments MPV (test code = MPV) 9.1 7.4-10.4 [place] 842182-07-21 05:01:00 Test Item Value Reference Range Interpretation Comments PT (test code = PT) 12.4 s 12.0-14.7 [place] 842182-07-21 05:01:00 Test Item Value Reference Range Interpretation Comments INR (test code = INR) 0.93 1 0.85-1.17 [facility]ptownPsskiqpAFOIBNHFMD6281-16-36 05:01:00 Test Item Value Reference Range Interpretation Comments PTT (test code = PTT) 26.5 s 22.9-35.8 [facility] UptownPuvtwgtCWRUGYTUBJ5424-43-20 05:01:00 Test Item Value Reference Range Interpretation Comments Segs (test code = Segs) 40.0 45.0-75.0 [facility] UptownYimgfgnEQPILFIXIU4970-41-23 05:01:00 Test Item Value Reference Range Interpretation Comments Lymphocytes (test code = Lymphocytes) 49.7 20.0-40.0 [facility] UptownIxrcaylYCBBXYMMDT8051-29-21 05:01:00 Test Item Value Reference Range Interpretation Comments Monocytes (test code = Monocytes) 8.5 2.0-12.0 [place] 842182-07-21 05:01:00 Test Item Value Reference Range Interpretation Comments Eosinophils (test code = 1.0 See_Comment [A utomated message] The Eosinophils) system which ge nerated this result tra nsmitted reference range : <=4.0. The reference r kat was not used to int erpret this result as normal/abnormal . [facility] UptownEbxghxhCEQGALFIEL4509-07-69 05:01:00 Test Item Value Reference Range Interpretation Comments Basophils (test code = 0.8 See_Comment [Aut omated message] The Basophils) system which ge nerated this result tra nsmitted reference range : <=1.0. The reference r kat was not used to int erpret this result as normal/abnormal . [facility] UptownTiozmxcAOBEIKFXNY3085-77-45 05:01:00 Test Item Value Reference Range Interpretation Comments Neutrophils # (test code = Neutrophils 2.5 1.5-8.1 #) [facility] UptownOxzuumpVQZPEPGFUB0461-99-32 05:01:00 Test Item Value Reference Range Interpretation Comments Lymphocytes # (test code = Lymphocytes 3.2 1.0-5.5 #) [facility] UptownBbbdqwrFZHRGMYCAO0786-49-73 05:01:00 Test Item Value Reference Range Interpretation Comments Monocytes # (test code 0.5 See_Comment [Aut omated message] The = Monocytes #) system which generated this result tra nsmitted reference range : <=0.8. The reference r kat was not used to int erpret this result as normal/abnormal . [facility] UptownDlrkiwnFARPYEUSOZ7001-71-65 05:01:00 Test Item Value Reference Range Interpretation Comments Eosinophils # (test code 0.1 See_Comment [A utomated message] The = Eosinophils #) system whic h generated this result tra nsmitted reference range : <=0.5. The reference r kat was not used to int erpret this result as normal/abnormal . [facility] UGAETVE3226-70-04 05:01:00 Test Item Value Reference Range Interpretation Comments HS Troponin I (test code = HS Troponin 5 I) [facility] [id number] 05:01:00 Test Item Value Reference Range Interpretation Comments Glucose Lvl (test code = Glucose Lvl) 96 70-99 [facility] [id number] 05:01:00 Test Item Value Reference Range Interpretation Comments BUN (test code = BUN) 16 7-22 [facility] [id number] 05:01:00 Test Item Value Reference Range Interpretation Comments Creatinine Lvl (test code = Creatinine 0.73 0.50-1.40 Lvl) [facility] [id number] 05:01:00 Test Item Value Reference Range Interpretation Comments Sodium Lvl (test code = Sodium Lvl) 141 135-145 [facility] [id number] 05:01:00 Test Item Value Reference Range Interpretation Comments Potassium Lvl (test code = Potassium 3.6 3.5-5.1 Lvl) [facility]2022-07-21 05:01:00 Test Item Value Reference Range Interpretation Comments Chloride Lvl (test code = Chloride Lvl) 110 95-109 [place] 136722-07-21 05:01:00 Test Item Value Reference Range Interpretation Comments CO2 (test code = CO2) 25 24-32 [place] 136722-07-21 05:01:00 Test Item Value Reference Range Interpretation Comments Calcium Lvl (test code = Calcium Lvl) 9.3 8.5-10.5 [place] 136722-07-21 05:01:00 Test Item Value Reference Range Interpretation Comments Total Protein (test code = Total 7.2 6.4-8.4 Protein) [place] 136722-07-21 05:01:00 Test Item Value Reference Range Interpretation Comments Albumin Lvl (test code = Albumin Lvl) 3.7 3.5-5.0 [place] 136722-07-21 05:01:00 Test Item Value Reference Range Interpretation Comments ALT (test code = ALT) 59 See_Comment [Auto mated message] The system which ge nerated this result transmit arvind reference range : <=65. The reference range was not used to interpr et this result as mario l/abnormal. [facility]2022-07-21 05:01:00 Test Item Value Reference Range Interpretation Comments AST (test code = AST) 24 See_Comment [Auto mated message] The system which ge nerated this result transmit arvind reference range : <=37. The reference range was not used to interpr et this result as mario l/abnormal. [place] 136722-07-21 05:01:00 Test Item Value Reference Range Interpretation Comments Alk Phos (test code = Alk Phos) 60 39-136 [place] 136722-07-21 05:01:00 Test Item Value Reference Range Interpretation Comments Bili Total (test code = Bili Total) 0.2 0.2-1.3 [place] 136722-07-21 05:01:00 Test Item Value Reference Range Interpretation Comments AGAP (test code = AGAP) 9.6 10.0-20.0 [facility]2022-07-21 05:01:00 Test Item Value Reference Range Interpretation Comments B/C Ratio (test code = B/C Ratio) 22 1 6-25 [facility]2022-07-21 05:01:00 Test Item Value Reference Range Interpretation Comments Globulin (test code = Globulin) 3.5 2.7-4.2 [facility]2022-07-21 05:01:00 Test Item Value Reference Range Interpretation Comments A/G Ratio (test code = A/G Ratio) 1.1 1 0.7-1.6 [facility]2022-07-21 05:01:00 Test Item Value Reference Range Interpretation Comments eGFR (test code = eGFR) 112 [facility]AfuytjdHSEGYSIRMO2075-[facility] 05:01:00 Test Item Value Reference Range Interpretation Comments WBC (test code = WBC) 6.4 3.7-10.4 [place] 842182-07-21 05:01:00 Test Item Value Reference Range Interpretation Comments RBC (test code = RBC) 5.28 4.20-5.40 [facility]ptownMhmdxdiLMPTMOVGYH2199-11-28 05:01:00 Test Item Value Reference Range Interpretation Comments Hgb (test code = Hgb) 14.1 12.0-16.0 [place] 842182-07-21 05:01:00 Test Item Value Reference Range Interpretation Comments Hct (test code = Hct) 43.0 36.0-48.0 [facility] UptownRdruaikMMKOQKTSPK4024-63-19 05:01:00 Test Item Value Reference Range Interpretation Comments MCV (test code = MCV) 81.4 80.0-98.0 [facility] UptownRrhafqqTBFEHPLEIY4148-78-37 05:01:00 Test Item Value Reference Range Interpretation Comments MCH (test code = MCH) 26.7 pg 27.0-31.0 [place] 842182-07-21 05:01:00 Test Item Value Reference Range Interpretation Comments MCHC (test code = MCHC) 32.9 32.0-36.0 [place] 842182-07-21 05:01:00 Test Item Value Reference Range Interpretation Comments RDW (test code = RDW) 14.1 11.5-14.5 [facility]ptownMnrworvGOMESKCAVI0326-59-13 05:01:00 Test Item Value Reference Range Interpretation Comments Platelet (test code = Platelet) 237 133-450 [facility] UptownItqzxptVLAXYOFOEX8523-10-28 05:01:00 Test Item Value Reference Range Interpretation Comments MPV (test code = MPV) 9.1 7.4-10.4 [place] 842182-07-21 05:01:00 Test Item Value Reference Range Interpretation Comments PT (test code = PT) 12.4 s 12.0-14.7 [place] 842182-07-21 05:01:00 Test Item Value Reference Range Interpretation Comments INR (test code = INR) 0.93 1 0.85-1.17 [place] 842182-07-21 05:01:00 Test Item Value Reference Range Interpretation Comments PTT (test code = PTT) 26.5 s 22.9-35.8 [place] 842182-07-21 05:01:00 Test Item Value Reference Range Interpretation Comments Segs (test code = Segs) 40.0 45.0-75.0 [place] 842182-07-21 05:01:00 Test Item Value Reference Range Interpretation Comments Lymphocytes (test code = Lymphocytes) 49.7 20.0-40.0 [place] 842182-07-21 05:01:00 Test Item Value Reference Range Interpretation Comments Monocytes (test code = Monocytes) 8.5 2.0-12.0 [place] 842182-07-21 05:01:00 Test Item Value Reference Range Interpretation Comments Eosinophils (test code = 1.0 See_Comment [A utomated message] The Eosinophils) system which ge nerated this result tra nsmitted reference range : <=4.0. The reference r kat was not used to int erpret this result as normal/abnormal . [facility]ptownCdljcwiZVFYFOYBDO4153-66-50 05:01:00 Test Item Value Reference Range Interpretation Comments Basophils (test code = 0.8 See_Comment [Aut omated message] The Basophils) system which ge nerated this result tra nsmitted reference range : <=1.0. The reference r kat was not used to int erpret this result as normal/abnormal . [facility] UptownTvhhgpbEDMOYQVYHC9887-30-93 05:01:00 Test Item Value Reference Range Interpretation Comments Neutrophils # (test code = Neutrophils 2.5 1.5-8.1 #) [facility]RxtcordCNCINUGVWT1158-03-81 05:01:00 Test Item Value Reference Range Interpretation Comments Lymphocytes # (test code = Lymphocytes 3.2 1.0-5.5 #) [facility] UptownSojdmsbODMCYIHING1513-37-29 05:01:00 Test Item Value Reference Range Interpretation Comments Monocytes # (test code 0.5 See_Comment [Aut omated message] The = Monocytes #) system which generated this result tra nsmitted reference range : <=0.8. The reference r kat was not used to int erpret this result as normal/abnormal . [facility] UptownLvecuxfWKKQOWNZMA6860-61-80 05:01:00 Test Item Value Reference Range Interpretation Comments Eosinophils # (test code 0.1 See_Comment [A utomated message] The = Eosinophils #) system whic h generated this result tra nsmitted reference range : <=0.5. The reference r kat was not used to int erpret this result as normal/abnormal . [facility]DI[facility] TFQKRIM2642-26-37 05:01:00 Test Item Value Reference Range Interpretation Comments HS Troponin I (test code = HS Troponin 5 I) [facility]2022-07-21 05:01:00 Test Item Value Reference Range Interpretation Comments Glucose Lvl (test code = Glucose Lvl) 96 70-99 [facility]2022-07-21 05:01:00 Test Item Value Reference Range Interpretation Comments BUN (test code = BUN) 16 7-22 [facility]2022-07-21 05:01:00 Test Item Value Reference Range Interpretation Comments Creatinine Lvl (test code = Creatinine 0.73 0.50-1.40 Lvl) [facility]2022-07-21 05:01:00 Test Item Value Reference Range Interpretation Comments Sodium Lvl (test code = Sodium Lvl) 141 135-145 [facility]2022-07-21 05:01:00 Test Item Value Reference Range Interpretation Comments Potassium Lvl (test code = Potassium 3.6 3.5-5.1 Lvl) [facility]2022-07-21 05:01:00 Test Item Value Reference Range Interpretation Comments Chloride Lvl (test code = Chloride Lvl) 110 95-109 [place] 136722-07-21 05:01:00 Test Item Value Reference Range Interpretation Comments CO2 (test code = CO2) 25 24-32 [place] 136722-07-21 05:01:00 Test Item Value Reference Range Interpretation Comments Calcium Lvl (test code = Calcium Lvl) 9.3 8.5-10.5 [place] 136722-07-21 05:01:00 Test Item Value Reference Range Interpretation Comments Total Protein (test code = Total 7.2 6.4-8.4 Protein) [place] 136722-07-21 05:01:00 Test Item Value Reference Range Interpretation Comments Albumin Lvl (test code = Albumin Lvl) 3.7 3.5-5.0 [place] 136722-07-21 05:01:00 Test Item Value Reference Range Interpretation Comments ALT (test code = ALT) 59 See_Comment [Auto mated message] The system which ge nerated this result transmit arvind reference range : <=65. The reference range was not used to interpr et this result as mario l/abnormal. [place] 136722-07-21 05:01:00 Test Item Value Reference Range Interpretation Comments AST (test code = AST) 24 See_Comment [Auto mated message] The system which ge nerated this result transmit arvind reference range : <=37. The reference range was not used to interpr et this result as mario l/abnormal. [place] 136722-07-21 05:01:00 Test Item Value Reference Range Interpretation Comments Alk Phos (test code = Alk Phos) 60 39-136 [place] 136722-07-21 05:01:00 Test Item Value Reference Range Interpretation Comments Bili Total (test code = Bili Total) 0.2 0.2-1.3 [place] 136722-07-21 05:01:00 Test Item Value Reference Range Interpretation Comments AGAP (test code = AGAP) 9.6 10.0-20.0 [place] 136722-07-21 05:01:00 Test Item Value Reference Range Interpretation Comments B/C Ratio (test code = B/C Ratio) 22 1 6-25 [place] 136722-07-21 05:01:00 Test Item Value Reference Range Interpretation Comments Globulin (test code = Globulin) 3.5 2.7-4.2 [facility] [id number] 05:01:00 Test Item Value Reference Range Interpretation Comments A/G Ratio (test code = A/G Ratio) 1.1 1 0.7-1.6 [facility] FTJGD1604-79-14 05:01:00 Test Item Value Reference Range Interpretation Comments eGFR (test code = eGFR) 112 [facility] UptownDkmedlrJAURHQDPAJ0092-39-88 05:01:00 Test Item Value Reference Range Interpretation Comments WBC (test code = WBC) 6.4 3.7-10.4 [facility] UptownBvlcrmkFOANUKYLEX4623-16-85 05:01:00 Test Item Value Reference Range Interpretation Comments RBC (test code = RBC) 5.28 4.20-5.40 [facility] UptownRfzhonaUJCMOYRZCH1954-56-23 05:01:00 Test Item Value Reference Range Interpretation Comments Hgb (test code = Hgb) 14.1 12.0-16.0 [facility] UptownJnmudfqVZOMEVSIRK0559-84-21 05:01:00 Test Item Value Reference Range Interpretation Comments Hct (test code = Hct) 43.0 36.0-48.0 [facility] UptownUqovgjvNGLGFRCUUT7277-43-09 05:01:00 Test Item Value Reference Range Interpretation Comments MCV (test code = MCV) 81.4 80.0-98.0 [facility] UptownOlueocuSADKGVDMKV2702-12-07 05:01:00 Test Item Value Reference Range Interpretation Comments MCH (test code = MCH) 26.7 pg 27.0-31.0 [facility] UptownUmdpurjWBENLKBIAI6478-18-55 05:01:00 Test Item Value Reference Range Interpretation Comments MCHC (test code = MCHC) 32.9 32.0-36.0 [facility] UptownSkfoyorUAXLVQPFVK2801-67-30 05:01:00 Test Item Value Reference Range Interpretation Comments RDW (test code = RDW) 14.1 11.5-14.5 [facility] UptownIzsenoiZPKJFKGFBB9457-84-54 05:01:00 Test Item Value Reference Range Interpretation Comments Platelet (test code = Platelet) 237 133-450 [facility] UptownQufejvpJVTEFOJJVI6460-16-40 05:01:00 Test Item Value Reference Range Interpretation Comments MPV (test code = MPV) 9.1 7.4-10.4 [facility] UptownNgrztdpKLYWBASWHE9352-18-47 05:01:00 Test Item Value Reference Range Interpretation Comments PT (test code = PT) 12.4 s 12.0-14.7 [facility] UptownDzimjhkITSTUHNNOZ5278-84-09 05:01:00 Test Item Value Reference Range Interpretation Comments INR (test code = INR) 0.93 1 0.85-1.17 [facility] UptownTyrofiwTADKFOXBHQ3491-36-27 05:01:00 Test Item Value Reference Range Interpretation Comments PTT (test code = PTT) 26.5 s 22.9-35.8 [facility] UptownRhbcjriJPBWGNEVYY0655-85-79 05:01:00 Test Item Value Reference Range Interpretation Comments Segs (test code = Segs) 40.0 45.0-75.0 [place] 842182-07-21 05:01:00 Test Item Value Reference Range Interpretation Comments Lymphocytes (test code = Lymphocytes) 49.7 20.0-40.0 [facility] UptownMurcdpzCBSEGGHJTN3761-34-02 05:01:00 Test Item Value Reference Range Interpretation Comments Monocytes (test code = Monocytes) 8.5 2.0-12.0 [facility] UptownNjbznrkEYLSVGKNPY5952-76-72 05:01:00 Test Item Value Reference Range Interpretation Comments Eosinophils (test code = 1.0 See_Comment [A utomated message] The Eosinophils) system which ge nerated this result tra nsmitted reference range : <=4.0. The reference r kat was not used to int erpret this result as normal/abnormal . [facility] UptownIzwqgvfDYXXPLFVEF6001-46-36 05:01:00 Test Item Value Reference Range Interpretation Comments Basophils (test code = 0.8 See_Comment [Aut omated message] The Basophils) system which ge nerated this result tra nsmitted reference range : <=1.0. The reference r kat was not used to int erpret this result as normal/abnormal . [facility] UptownZzaaknnFRSGTURYEL7168-96-62 05:01:00 Test Item Value Reference Range Interpretation Comments Neutrophils # (test code = Neutrophils 2.5 1.5-8.1 #) [place] 842182-07-21 05:01:00 Test Item Value Reference Range Interpretation Comments Lymphocytes # (test code = Lymphocytes 3.2 1.0-5.5 #) [facility] UptownXybshnpVZEAALRLIX6521-80-21 05:01:00 Test Item Value Reference Range Interpretation Comments Monocytes # (test code 0.5 See_Comment [Aut omated message] The = Monocytes #) system which generated this result tra nsmitted reference range : <=0.8. The reference r kat was not used to int erpret this result as normal/abnormal . [facility]FafpaoiFPKTTAANLX3430-52-83 05:01:00 Test Item Value Reference Range Interpretation Comments Eosinophils # (test code 0.1 See_Comment [A utomated message] The = Eosinophils #) system whic h generated this result tra nsmitted reference range : <=0.5. The reference r kat was not used to int erpret this result as normal/abnormal . [facility] CenterCARDIAC ENVIHAA0601-92-53 05:01:00 Test Item Value Reference Range Interpretation Comments HS Troponin I (test code = HS Troponin 5 I) [facility] [id number] 05:01:00 Test Item Value Reference Range Interpretation Comments Glucose Lvl (test code = Glucose Lvl) 96 70-99 [facility] [id number] 05:01:00 Test Item Value Reference Range Interpretation Comments BUN (test code = BUN) 16 7-22 [facility] [id number] 05:01:00 Test Item Value Reference Range Interpretation Comments Creatinine Lvl (test code = Creatinine 0.73 0.50-1.40 Lvl) [facility] [id number] 05:01:00 Test Item Value Reference Range Interpretation Comments Sodium Lvl (test code = Sodium Lvl) 141 135-145 [facility] [id number] 05:01:00 Test Item Value Reference Range Interpretation Comments Potassium Lvl (test code = Potassium 3.6 3.5-5.1 Lvl) [facility] [id number] 05:01:00 Test Item Value Reference Range Interpretation Comments Chloride Lvl (test code = Chloride Lvl) 110 95-109 [facility] [id number] 05:01:00 Test Item Value Reference Range Interpretation Comments CO2 (test code = CO2) 25 24-32 [facility] [id number] 05:01:00 Test Item Value Reference Range Interpretation Comments Calcium Lvl (test code = Calcium Lvl) 9.3 8.5-10.5 [place] 136722-07-21 05:01:00 Test Item Value Reference Range Interpretation Comments Total Protein (test code = Total 7.2 6.4-8.4 Protein) [place] 136722-07-21 05:01:00 Test Item Value Reference Range Interpretation Comments Albumin Lvl (test code = Albumin Lvl) 3.7 3.5-5.0 [place] 136722-07-21 05:01:00 Test Item Value Reference Range Interpretation Comments ALT (test code = ALT) 59 See_Comment [Auto mated message] The system which ge nerated this result transmit arvind reference range : <=65. The reference range was not used to interpr et this result as mario l/abnormal. [place] 136722-07-21 05:01:00 Test Item Value Reference Range Interpretation Comments AST (test code = AST) 24 See_Comment [Auto mated message] The system which ge nerated this result transmit arvind reference range : <=37. The reference range was not used to interpr et this result as mario l/abnormal. [facility] [id number] 05:01:00 Test Item Value Reference Range Interpretation Comments Alk Phos (test code = Alk Phos) 60 39-136 [facility] [id number] 05:01:00 Test Item Value Reference Range Interpretation Comments Bili Total (test code = Bili Total) 0.2 0.2-1.3 [facility]2022-07-21 05:01:00 Test Item Value Reference Range Interpretation Comments AGAP (test code = AGAP) 9.6 10.0-20.0 [facility] [id number] 05:01:00 Test Item Value Reference Range Interpretation Comments B/C Ratio (test code = B/C Ratio) 22 1 6-25 [facility] [id number] 05:01:00 Test Item Value Reference Range Interpretation Comments Globulin (test code = Globulin) 3.5 2.7-4.2 [place] 136722-07-21 05:01:00 Test Item Value Reference Range Interpretation Comments A/G Ratio (test code = A/G Ratio) 1.1 1 0.7-1.6 [facility] [id number] 05:01:00 Test Item Value Reference Range Interpretation Comments eGFR (test code = eGFR) 112 [facility]ownXvdcgquBOIWJAZIAQ4511-79-72 05:01:00 Test Item Value Reference Range Interpretation Comments WBC (test code = WBC) 6.4 3.7-10.4 [place] 842182-07-21 05:01:00 Test Item Value Reference Range Interpretation Comments RBC (test code = RBC) 5.28 4.20-5.40 [place] 842182-07-21 05:01:00 Test Item Value Reference Range Interpretation Comments Hgb (test code = Hgb) 14.1 12.0-16.0 [place] 842182-07-21 05:01:00 Test Item Value Reference Range Interpretation Comments Hct (test code = Hct) 43.0 36.0-48.0 [place] 842182-07-21 05:01:00 Test Item Value Reference Range Interpretation Comments MCV (test code = MCV) 81.4 80.0-98.0 [place] 842182-07-21 05:01:00 Test Item Value Reference Range Interpretation Comments MCH (test code = MCH) 26.7 pg 27.0-31.0 [facility]ptownPiierkzIEQYTFWBHW0622-30-48 05:01:00 Test Item Value Reference Range Interpretation Comments MCHC (test code = MCHC) 32.9 32.0-36.0 [facility] UptownHkbbkfeSLEKSXGSRU4978-20-55 05:01:00 Test Item Value Reference Range Interpretation Comments RDW (test code = RDW) 14.1 11.5-14.5 [place] 842182-07-21 05:01:00 Test Item Value Reference Range Interpretation Comments Platelet (test code = Platelet) 237 133-450 [facility] UptownDcuvpmiDUDCEIRCFE9245-02-14 05:01:00 Test Item Value Reference Range Interpretation Comments MPV (test code = MPV) 9.1 7.4-10.4 [place] 842182-07-21 05:01:00 Test Item Value Reference Range Interpretation Comments PT (test code = PT) 12.4 s 12.0-14.7 [facility] UptownSksbrvnJYDSIPDZPG6872-05-01 05:01:00 Test Item Value Reference Range Interpretation Comments INR (test code = INR) 0.93 1 0.85-1.17 [place] 842182-07-21 05:01:00 Test Item Value Reference Range Interpretation Comments PTT (test code = PTT) 26.5 s 22.9-35.8 [facility] UptownLblcnxwAMRRRAALTG8040-07-23 05:01:00 Test Item Value Reference Range Interpretation Comments Segs (test code = Segs) 40.0 45.0-75.0 [facility] UptownVdltbjuGMNBWMBXCL9677-98-18 05:01:00 Test Item Value Reference Range Interpretation Comments Lymphocytes (test code = Lymphocytes) 49.7 20.0-40.0 [place] 842182-07-21 05:01:00 Test Item Value Reference Range Interpretation Comments Monocytes (test code = Monocytes) 8.5 2.0-12.0 [facility] UptownDgqfsroSSMSLZOPCY2225-30-18 05:01:00 Test Item Value Reference Range Interpretation Comments Eosinophils (test code = 1.0 See_Comment [A utomated message] The Eosinophils) system which ge nerated this result tra nsmitted reference range : <=4.0. The reference r kat was not used to int erpret this result as normal/abnormal . [facility] UptownHilzscmZKFSOJXCBT1612-97-02 05:01:00 Test Item Value Reference Range Interpretation Comments Basophils (test code = 0.8 See_Comment [Aut omated message] The Basophils) system which ge nerated this result tra nsmitted reference range : <=1.0. The reference r kat was not used to int erpret this result as normal/abnormal . [facility] UptownRerwoqkIBCXVWJUYF5647-67-77 05:01:00 Test Item Value Reference Range Interpretation Comments Neutrophils # (test code = Neutrophils 2.5 1.5-8.1 #) [facility] UptownOvvlfroMTJAKUSDMD8304-39-87 05:01:00 Test Item Value Reference Range Interpretation Comments Lymphocytes # (test code = Lymphocytes 3.2 1.0-5.5 #) [facility] UptownVqmqycsCADKYWVLIP5857-11-57 05:01:00 Test Item Value Reference Range Interpretation Comments Monocytes # (test code 0.5 See_Comment [Aut omated message] The = Monocytes #) system which generated this result tra nsmitted reference range : <=0.8. The reference r kat was not used to int erpret this result as normal/abnormal . [place] 842182-07-21 05:01:00 Test Item Value Reference Range Interpretation Comments Eosinophils # (test code 0.1 See_Comment [A utomated message] The = Eosinophils #) system whic h generated this result tra nsmitted reference range : <=0.5. The reference r kat was not used to int erpret this result as normal/abnormal . [facility] [id number] 05:01:00 Test Item Value Reference Range Interpretation Comments HS Troponin I (test code = HS Troponin 5 I) [facility] [id number] 05:01:00 Test Item Value Reference Range Interpretation Comments Glucose Lvl (test code = Glucose Lvl) 96 70-99 [facility]2022-07-21 05:01:00 Test Item Value Reference Range Interpretation Comments BUN (test code = BUN) 16 7-22 [facility]2022-07-21 05:01:00 Test Item Value Reference Range Interpretation Comments Creatinine Lvl (test code = Creatinine 0.73 0.50-1.40 Lvl) [facility]2022-07-21 05:01:00 Test Item Value Reference Range Interpretation Comments Sodium Lvl (test code = Sodium Lvl) 141 135-145 [facility] [id number] 05:01:00 Test Item Value Reference Range Interpretation Comments Potassium Lvl (test code = Potassium 3.6 3.5-5.1 Lvl) [facility] CenterEkaya.comUNC MEDICAL CENTERRHCZP0165-44-18 05:01:00 Test Item Value Reference Range Interpretation Comments Chloride Lvl (test code = Chloride Lvl) 110 95-109 [facility]2022-07-21 05:01:00 Test Item Value Reference Range Interpretation Comments CO2 (test code = CO2) 25 24-32 [facility]2022-07-21 05:01:00 Test Item Value Reference Range Interpretation Comments Calcium Lvl (test code = Calcium Lvl) 9.3 8.5-10.5 [facility]2022-07-21 05:01:00 Test Item Value Reference Range Interpretation Comments Total Protein (test code = Total 7.2 6.4-8.4 Protein) [facility]2022-07-21 05:01:00 Test Item Value Reference Range Interpretation Comments Albumin Lvl (test code = Albumin Lvl) 3.7 3.5-5.0 [facility] [id number] 05:01:00 Test Item Value Reference Range Interpretation Comments ALT (test code = ALT) 59 See_Comment [Auto mated message] The system which ge nerated this result transmit arvind reference range : <=65. The reference range was not used to interpr et this result as mario l/abnormal. [facility] [id number] 05:01:00 Test Item Value Reference Range Interpretation Comments AST (test code = AST) 24 See_Comment [Auto mated message] The system which ge nerated this result transmit arvind reference range : <=37. The reference range was not used to interpr et this result as mario l/abnormal. [facility] [id number] 05:01:00 Test Item Value Reference Range Interpretation Comments Alk Phos (test code = Alk Phos) 60 39-136 [facility] [id number] 05:01:00 Test Item Value Reference Range Interpretation Comments Bili Total (test code = Bili Total) 0.2 0.2-1.3 [facility] [id number] 05:01:00 Test Item Value Reference Range Interpretation Comments AGAP (test code = AGAP) 9.6 10.0-20.0 [facility] [id number] 05:01:00 Test Item Value Reference Range Interpretation Comments B/C Ratio (test code = B/C Ratio) 22 1 6-25 [facility] [id number] 05:01:00 Test Item Value Reference Range Interpretation Comments Globulin (test code = Globulin) 3.5 2.7-4.2 [facility] [id number] 05:01:00 Test Item Value Reference Range Interpretation Comments A/G Ratio (test code = A/G Ratio) 1.1 1 0.7-1.6 [facility] CenterBirdpost OWNTY7742-95-53 05:01:00 Test Item Value Reference Range Interpretation Comments eGFR (test code = eGFR) 112 [facility] UptownBlronhtCJPPZJHXVS9938-57-89 05:01:00 Test Item Value Reference Range Interpretation Comments WBC (test code = WBC) 6.4 3.7-10.4 [facility] CenterIqfzfgqXHKLPNNMYW5083-87-32 05:01:00 Test Item Value Reference Range Interpretation Comments RBC (test code = RBC) 5.28 4.20-5.40 [facility]ZzhfokqGQCQVTBHMK6520-85-25 05:01:00 Test Item Value Reference Range Interpretation Comments Hgb (test code = Hgb) 14.1 12.0-16.0 [facility] PSPBETR9226-34-40 05:01:00 Test Item Value Reference Range Interpretation Comments HS Troponin I (test code = HS Troponin 5 I) [facility] UptownIxcjsehEGIRZWTSNB6895-97-32 05:01:00 Test Item Value Reference Range Interpretation Comments Hct (test code = Hct) 43.0 36.0-48.0 [facility] HealthZwbcfexAEWWKUGNOL3273-62-46 05:01:00 Test Item Value Reference Range Interpretation Comments MCV (test code = MCV) 81.4 80.0-98.0 [facility] UptownCjslbwkZGCQKVEJYI8306-87-39 05:01:00 Test Item Value Reference Range Interpretation Comments MCH (test code = MCH) 26.7 pg 27.0-31.0 [facility] UptownDtexzreDSEZILSXDO6176-91-98 05:01:00 Test Item Value Reference Range Interpretation Comments MCHC (test code = MCHC) 32.9 32.0-36.0 [facility] HealthItnbluuQSDBTHDDFD6161-92-58 05:01:00 Test Item Value Reference Range Interpretation Comments RDW (test code = RDW) 14.1 11.5-14.5 [facility] UptownDbgyvbmBFRGELDDPA9299-03-40 05:01:00 Test Item Value Reference Range Interpretation Comments Platelet (test code = Platelet) 237 133-450 [facility] UptownKcfsziaEHYKXBXRRR7824-47-59 05:01:00 Test Item Value Reference Range Interpretation Comments MPV (test code = MPV) 9.1 7.4-10.4 [facility] UptownBwrksifBUFEGETLMQ4194-43-55 05:01:00 Test Item Value Reference Range Interpretation Comments PT (test code = PT) 12.4 s 12.0-14.7 [facility] UptownThhwmtvTYFFVYDCXV1712-46-15 05:01:00 Test Item Value Reference Range Interpretation Comments INR (test code = INR) 0.93 1 0.85-1.17 [facility] UptownLwleetsBIVTDZOLXJ7056-72-00 05:01:00 Test Item Value Reference Range Interpretation Comments PTT (test code = PTT) 26.5 s 22.9-35.8 [facility]2022-07-21 05:01:00 Test Item Value Reference Range Interpretation Comments Glucose Lvl (test code = Glucose Lvl) 96 70-99 [facility] UptownEbsfauqJFNDGYCTSF0659-06-25 05:01:00 Test Item Value Reference Range Interpretation Comments Segs (test code = Segs) 40.0 45.0-75.0 [facility] UptownJvzokndHWMLGXKCNU8970-84-51 05:01:00 Test Item Value Reference Range Interpretation Comments Lymphocytes (test code = Lymphocytes) 49.7 20.0-40.0 [facility] UptownIdrkisbNACVSGPIYI8688-03-69 05:01:00 Test Item Value Reference Range Interpretation Comments Monocytes (test code = Monocytes) 8.5 2.0-12.0 [facility] UptownWatbgrtABIMJATSRN7043-68-63 05:01:00 Test Item Value Reference Range Interpretation Comments Eosinophils (test code = 1.0 See_Comment [A utomated message] The Eosinophils) system which ge nerated this result tra nsmitted reference range : <=4.0. The reference r kat was not used to int erpret this result as normal/abnormal . [facility] UptownUjcbtnlNXOCUBLNGC4983-16-82 05:01:00 Test Item Value Reference Range Interpretation Comments Basophils (test code = 0.8 See_Comment [Aut omated message] The Basophils) system which ge nerated this result tra nsmitted reference range : <=1.0. The reference r kat was not used to int erpret this result as normal/abnormal . [facility] UptownKsmynvzAYTUOHNQUA1473-96-14 05:01:00 Test Item Value Reference Range Interpretation Comments Neutrophils # (test code = Neutrophils 2.5 1.5-8.1 #) [place] 842182-07-21 05:01:00 Test Item Value Reference Range Interpretation Comments Lymphocytes # (test code = Lymphocytes 3.2 1.0-5.5 #) [place] 842182-07-21 05:01:00 Test Item Value Reference Range Interpretation Comments Monocytes # (test code 0.5 See_Comment [Aut omated message] The = Monocytes #) system which generated this result tra nsmitted reference range : <=0.8. The reference r kat was not used to int erpret this result as normal/abnormal . [facility]ptownIfwsyrdMRDOCVHMZC1940-57-44 05:01:00 Test Item Value Reference Range Interpretation Comments Eosinophils # (test code 0.1 See_Comment [A utomated message] The = Eosinophils #) system whic h generated this result tra nsmitted reference range : <=0.5. The reference r kat was not used to int erpret this result as normal/abnormal . [place] 136722-07-21 05:01:00 Test Item Value Reference Range Interpretation Comments BUN (test code = BUN) 16 7-22 [place] 136722-07-21 05:01:00 Test Item Value Reference Range Interpretation Comments Creatinine Lvl (test code = Creatinine 0.73 0.50-1.40 Lvl) [place] 136722-07-21 05:01:00 Test Item Value Reference Range Interpretation Comments Sodium Lvl (test code = Sodium Lvl) 141 135-145 [place] 136722-07-21 05:01:00 Test Item Value Reference Range Interpretation Comments Potassium Lvl (test code = Potassium 3.6 3.5-5.1 Lvl) [place] 136722-07-21 05:01:00 Test Item Value Reference Range Interpretation Comments Chloride Lvl (test code = Chloride Lvl) 110 95-109 [place] 136722-07-21 05:01:00 Test Item Value Reference Range Interpretation Comments CO2 (test code = CO2) 25 24-32 [place] 136722-07-21 05:01:00 Test Item Value Reference Range Interpretation Comments Calcium Lvl (test code = Calcium Lvl) 9.3 8.5-10.5 [place] 136722-07-21 05:01:00 Test Item Value Reference Range Interpretation Comments Total Protein (test code = Total 7.2 6.4-8.4 Protein) [place] 136722-07-21 05:01:00 Test Item Value Reference Range Interpretation Comments Albumin Lvl (test code = Albumin Lvl) 3.7 3.5-5.0 [place] 136722-07-21 05:01:00 Test Item Value Reference Range Interpretation Comments ALT (test code = ALT) 59 See_Comment [Auto mated message] The system which ge nerated this result transmit arvind reference range : <=65. The reference range was not used to interpr et this result as mario l/abnormal. [place] 136722-07-21 05:01:00 Test Item Value Reference Range Interpretation Comments AST (test code = AST) 24 See_Comment [Auto mated message] The system which ge nerated this result transmit arvind reference range : <=37. The reference range was not used to interpr et this result as mario l/abnormal. [place] 136722-07-21 05:01:00 Test Item Value Reference Range Interpretation Comments Alk Phos (test code = Alk Phos) 60 39-136 [place] 136722-07-21 05:01:00 Test Item Value Reference Range Interpretation Comments Bili Total (test code = Bili Total) 0.2 0.2-1.3 [place] 136722-07-21 05:01:00 Test Item Value Reference Range Interpretation Comments AGAP (test code = AGAP) 9.6 10.0-20.0 [place] 136722-07-21 05:01:00 Test Item Value Reference Range Interpretation Comments B/C Ratio (test code = B/C Ratio) 22 1 6-25 [place] 136722-07-21 05:01:00 Test Item Value Reference Range Interpretation Comments Globulin (test code = Globulin) 3.5 2.7-4.2 [place] 136722-07-21 05:01:00 Test Item Value Reference Range Interpretation Comments A/G Ratio (test code = A/G Ratio) 1.1 1 0.7-1.6 [place] 136722-07-21 05:01:00 Test Item Value Reference Range Interpretation Comments eGFR (test code = eGFR) 112 [place] 842182-07-21 05:01:00 Test Item Value Reference Range Interpretation Comments WBC (test code = WBC) 6.4 3.7-10.4 [place] 842182-07-21 05:01:00 Test Item Value Reference Range Interpretation Comments RBC (test code = RBC) 5.28 4.20-5.40 [place] 842182-07-21 05:01:00 Test Item Value Reference Range Interpretation Comments Hgb (test code = Hgb) 14.1 12.0-16.0 [facility] UptownXqckpsxURSMRJTAKZ3383-07-13 05:01:00 Test Item Value Reference Range Interpretation Comments Hct (test code = Hct) 43.0 36.0-48.0 [facility] UptownQimgiibLFYPWPCPZP4650-95-22 05:01:00 Test Item Value Reference Range Interpretation Comments MCV (test code = MCV) 81.4 80.0-98.0 [place] 842182-07-21 05:01:00 Test Item Value Reference Range Interpretation Comments MCH (test code = MCH) 26.7 pg 27.0-31.0 [place] 842182-07-21 05:01:00 Test Item Value Reference Range Interpretation Comments MCHC (test code = MCHC) 32.9 32.0-36.0 [facility] UptownZonunhvBFVJGGMSVK2855-82-29 05:01:00 Test Item Value Reference Range Interpretation Comments RDW (test code = RDW) 14.1 11.5-14.5 [place] 842182-07-21 05:01:00 Test Item Value Reference Range Interpretation Comments Platelet (test code = Platelet) 237 133-450 [facility] UptownKpyywngLEUPXIPEYX9090-53-16 05:01:00 Test Item Value Reference Range Interpretation Comments MPV (test code = MPV) 9.1 7.4-10.4 [place] 842182-07-21 05:01:00 Test Item Value Reference Range Interpretation Comments PT (test code = PT) 12.4 s 12.0-14.7 [place] 842182-07-21 05:01:00 Test Item Value Reference Range Interpretation Comments INR (test code = INR) 0.93 1 0.85-1.17 [place] 842182-07-21 05:01:00 Test Item Value Reference Range Interpretation Comments PTT (test code = PTT) 26.5 s 22.9-35.8 [place] 842182-07-21 05:01:00 Test Item Value Reference Range Interpretation Comments Segs (test code = Segs) 40.0 45.0-75.0 [place] 842182-07-21 05:01:00 Test Item Value Reference Range Interpretation Comments Lymphocytes (test code = Lymphocytes) 49.7 20.0-40.0 [facility] UptownDaolmtyQGTFTTIPHH6433-01-94 05:01:00 Test Item Value Reference Range Interpretation Comments Monocytes (test code = Monocytes) 8.5 2.0-12.0 [facility] UptownMjxjhrzRZBIXVWQBC6972-12-86 05:01:00 Test Item Value Reference Range Interpretation Comments Eosinophils (test code = 1.0 See_Comment [A utomated message] The Eosinophils) system which ge nerated this result tra nsmitted reference range : <=4.0. The reference r kat was not used to int erpret this result as normal/abnormal . [facility] UptownZrduivpLXKDLIHWCR0811-00-28 05:01:00 Test Item Value Reference Range Interpretation Comments Basophils (test code = 0.8 See_Comment [Aut omated message] The Basophils) system which ge nerated this result tra nsmitted reference range : <=1.0. The reference r kat was not used to int erpret this result as normal/abnormal . [facility] UptownLgaxccwAFCWYFASKN1261-79-68 05:01:00 Test Item Value Reference Range Interpretation Comments Neutrophils # (test code = Neutrophils 2.5 1.5-8.1 #) [facility] UptownTkacryjRPIDTOUNDF9352-38-38 05:01:00 Test Item Value Reference Range Interpretation Comments Lymphocytes # (test code = Lymphocytes 3.2 1.0-5.5 #) [facility] UptownIcogimaHITAFVLGIU6202-36-31 05:01:00 Test Item Value Reference Range Interpretation Comments Monocytes # (test code 0.5 See_Comment [Aut omated message] The = Monocytes #) system which generated this result tra nsmitted reference range : <=0.8. The reference r kat was not used to int erpret this result as normal/abnormal . [facility] UptownLttnmisCTTNLBJLAJ2755-41-10 05:01:00 Test Item Value Reference Range Interpretation Comments Eosinophils # (test code 0.1 See_Comment [A utomated message] The = Eosinophils #) system whic h generated this result tra nsmitted reference range : <=0.5. The reference r kat was not used to int erpret this result as normal/abnormal . [facility] BPUHGXS8134-90-99 05:01:00 Test Item Value Reference Range Interpretation Comments HS Troponin I (test code = HS Troponin 5 I) [facility] CenterCHEM DPPKG4637-75-68 05:01:00 Test Item Value Reference Range Interpretation Comments Glucose Lvl (test code = Glucose Lvl) 96 70-99 [facility]2022-07-21 05:01:00 Test Item Value Reference Range Interpretation Comments BUN (test code = BUN) 16 7-22 [place] 136722-07-21 05:01:00 Test Item Value Reference Range Interpretation Comments Creatinine Lvl (test code = Creatinine 0.73 0.50-1.40 Lvl) [place] 136722-07-21 05:01:00 Test Item Value Reference Range Interpretation Comments Sodium Lvl (test code = Sodium Lvl) 141 135-145 [place] 136722-07-21 05:01:00 Test Item Value Reference Range Interpretation Comments Potassium Lvl (test code = Potassium 3.6 3.5-5.1 Lvl) [place] 136722-07-21 05:01:00 Test Item Value Reference Range Interpretation Comments Chloride Lvl (test code = Chloride Lvl) 110 95-109 [facility]2022-07-21 05:01:00 Test Item Value Reference Range Interpretation Comments CO2 (test code = CO2) 25 24-32 [place] 136722-07-21 05:01:00 Test Item Value Reference Range Interpretation Comments Calcium Lvl (test code = Calcium Lvl) 9.3 8.5-10.5 [place] 136722-07-21 05:01:00 Test Item Value Reference Range Interpretation Comments Total Protein (test code = Total 7.2 6.4-8.4 Protein) [place] 136722-07-21 05:01:00 Test Item Value Reference Range Interpretation Comments Albumin Lvl (test code = Albumin Lvl) 3.7 3.5-5.0 [place] 136722-07-21 05:01:00 Test Item Value Reference Range Interpretation Comments ALT (test code = ALT) 59 See_Comment [Auto mated message] The system which ge nerated this result transmit arvind reference range : <=65. The reference range was not used to interpr et this result as mario l/abnormal. [place] 136722-07-21 05:01:00 Test Item Value Reference Range Interpretation Comments AST (test code = AST) 24 See_Comment [Auto mated message] The system which ge nerated this result transmit arvind reference range : <=37. The reference range was not used to interpr et this result as mario l/abnormal. [place] 136722-07-21 05:01:00 Test Item Value Reference Range Interpretation Comments Alk Phos (test code = Alk Phos) 60 39-136 [place] 136722-07-21 05:01:00 Test Item Value Reference Range Interpretation Comments Bili Total (test code = Bili Total) 0.2 0.2-1.3 [place] 136722-07-21 05:01:00 Test Item Value Reference Range Interpretation Comments AGAP (test code = AGAP) 9.6 10.0-20.0 [place] 136722-07-21 05:01:00 Test Item Value Reference Range Interpretation Comments B/C Ratio (test code = B/C Ratio) 22 1 6-25 [place] 136722-07-21 05:01:00 Test Item Value Reference Range Interpretation Comments Globulin (test code = Globulin) 3.5 2.7-4.2 [place] 136722-07-21 05:01:00 Test Item Value Reference Range Interpretation Comments A/G Ratio (test code = A/G Ratio) 1.1 1 0.7-1.6 [place] 136722-07-21 05:01:00 Test Item Value Reference Range Interpretation Comments eGFR (test code = eGFR) 112 [place] 842182-07-21 05:01:00 Test Item Value Reference Range Interpretation Comments WBC (test code = WBC) 6.4 3.7-10.4 [place] 842182-07-21 05:01:00 Test Item Value Reference Range Interpretation Comments RBC (test code = RBC) 5.28 4.20-5.40 [place] 842182-07-21 05:01:00 Test Item Value Reference Range Interpretation Comments Hgb (test code = Hgb) 14.1 12.0-16.0 [place] 842182-07-21 05:01:00 Test Item Value Reference Range Interpretation Comments Hct (test code = Hct) 43.0 36.0-48.0 [place] 842182-07-21 05:01:00 Test Item Value Reference Range Interpretation Comments MCV (test code = MCV) 81.4 80.0-98.0 [facility] UptownNaiitvhEATEXOFFCI9437-36-40 05:01:00 Test Item Value Reference Range Interpretation Comments MCH (test code = MCH) 26.7 pg 27.0-31.0 [facility] UptownLvoxmrfYMGCKTFAXG1697-68-63 05:01:00 Test Item Value Reference Range Interpretation Comments MCHC (test code = MCHC) 32.9 32.0-36.0 [facility] UptownNmljhqaYVJEWDIKCB8539-67-57 05:01:00 Test Item Value Reference Range Interpretation Comments RDW (test code = RDW) 14.1 11.5-14.5 [facility] UptownZjktbouCLTZSQXPUE0824-01-89 05:01:00 Test Item Value Reference Range Interpretation Comments Platelet (test code = Platelet) 237 133-450 [facility] UptownLznjaemDQOYTFJDCA2307-19-39 05:01:00 Test Item Value Reference Range Interpretation Comments MPV (test code = MPV) 9.1 7.4-10.4 [facility] UptownMyualhaTQLRINSIVR2280-30-10 05:01:00 Test Item Value Reference Range Interpretation Comments PT (test code = PT) 12.4 s 12.0-14.7 [facility] UptownDavnemfNMMDWFOYGT1078-82-03 05:01:00 Test Item Value Reference Range Interpretation Comments INR (test code = INR) 0.93 1 0.85-1.17 [facility] UptownFgasgpeTYRQVZXXHC2177-14-86 05:01:00 Test Item Value Reference Range Interpretation Comments PTT (test code = PTT) 26.5 s 22.9-35.8 [facility] UptownNxzquemWXFUPEDMVF5593-73-41 05:01:00 Test Item Value Reference Range Interpretation Comments Segs (test code = Segs) 40.0 45.0-75.0 [facility] UptownBaffigpWUOQJPLFFF0414-41-11 05:01:00 Test Item Value Reference Range Interpretation Comments Lymphocytes (test code = Lymphocytes) 49.7 20.0-40.0 [facility] UptownVxkgpdzDLKYDLJZQF8184-91-64 05:01:00 Test Item Value Reference Range Interpretation Comments Monocytes (test code = Monocytes) 8.5 2.0-12.0 [facility] UptownMblmvskJXGLCZOCTT4897-63-42 05:01:00 Test Item Value Reference Range Interpretation Comments Eosinophils (test code = 1.0 See_Comment [A utomated message] The Eosinophils) system which ge nerated this result tra nsmitted reference range : <=4.0. The reference r kat was not used to int erpret this result as normal/abnormal . [facility] UptownRpccvbiIERELXRNEA1800-39-98 05:01:00 Test Item Value Reference Range Interpretation Comments Basophils (test code = 0.8 See_Comment [Aut omated message] The Basophils) system which ge nerated this result tra nsmitted reference range : <=1.0. The reference r kat was not used to int erpret this result as normal/abnormal . [facility] UptownZebeafsAYXVBLAPLG4255-98-17 05:01:00 Test Item Value Reference Range Interpretation Comments Neutrophils # (test code = Neutrophils 2.5 1.5-8.1 #) [facility] UptownOxsfprbBHZPXRKRIV7555-50-69 05:01:00 Test Item Value Reference Range Interpretation Comments Lymphocytes # (test code = Lymphocytes 3.2 1.0-5.5 #) [facility] UptownYpjpxqpRHMMOVFUNY0320-88-07 05:01:00 Test Item Value Reference Range Interpretation Comments Monocytes # (test code 0.5 See_Comment [Aut omated message] The = Monocytes #) system which generated this result tra nsmitted reference range : <=0.8. The reference r kat was not used to int erpret this result as normal/abnormal . [facility] UptownWvhlfwdRAKRQCPFAY2431-78-96 05:01:00 Test Item Value Reference Range Interpretation Comments Eosinophils # (test code 0.1 See_Comment [A utomated message] The = Eosinophils #) system whic h generated this result tra nsmitted reference range : <=0.5. The reference r kat was not used to int erpret this result as normal/abnormal . [facility]VtslzgmVDVFIYVSYA7460-23-69 02:18:00 Test Item Value Reference Range Interpretation Comments Coronavirus (COVID-19) Detected MARLYN (test code = 1*ABN*(03/13/22 9:18 Coronavirus (COVID-19) PM) MARLYN) [facility] CenterViljigeWJYCHTXHCD1389-42-63 02:18:00 Test Item Value Reference Range Interpretation Comments Coronavirus (COVID-19) Detected MARLYN (test code = 1*ABN*(03/13/22 9:18 Coronavirus (COVID-19) PM) MARLYN) [facility] CenterZkrcqzmLSOVIVAXXM5401-05-39 02:18:00 Test Item Value Reference Range Interpretation Comments Coronavirus (COVID-19) Detected MARLYN (test code = 1*ABN*(03/13/22 9:18 Coronavirus (COVID-19) PM) MARLYN) [place] 902252-07-16 02:18:00 Test Item Value Reference Range Interpretation Comments Coronavirus (COVID-19) Detected MARLYN (test code = 1*ABN*(03/13/22 9:18 Coronavirus (COVID-19) PM) MARLYN) [place] [address]-07-16 02:18:00 Test Item Value Reference Range Interpretation Comments Coronavirus (COVID-19) Detected MARLYN (test code = 1*ABN*(03/13/22 9:18 Coronavirus (COVID-19) PM) MARLYN) [place] [address]-07-16 02:18:00 Test Item Value Reference Range Interpretation Comments Coronavirus (COVID-19) Detected MARLYN (test code = 1*ABN*(03/13/22 9:18 Coronavirus (COVID-19) PM) MARLYN) [place] [address]-07-16 02:18:00 Test Item Value Reference Range Interpretation Comments Coronavirus (COVID-19) Detected MARLYN (test code = 1*ABN*(03/13/22 9:18 Coronavirus (COVID-19) PM) MARLYN) [facility] CenterAyxammwOLIVZLPSFZ9034-09-20 02:18:00 Test Item Value Reference Range Interpretation Comments Coronavirus (COVID-19) Detected MARLYN (test code = 1*ABN*(03/13/22 9:18 Coronavirus (COVID-19) PM) MARLYN) [facility] CenterBqwjdruASBGJHJGGF8484-99-58 02:18:00 Test Item Value Reference Range Interpretation Comments Coronavirus (COVID-19) Detected MARLYN (test code = 1*ABN*(03/13/22 9:18 Coronavirus (COVID-19) PM) MARLYN) [place] [address]-07-16 02:18:00 Test Item Value Reference Range Interpretation Comments Coronavirus (COVID-19) Detected MARLYN (test code = 1*ABN*(03/13/22 9:18 Coronavirus (COVID-19) PM) MARLYN) [place] [address]-07-16 02:18:00 Test Item Value Reference Range Interpretation Comments Coronavirus (COVID-19) Detected MARLYN (test code = 1*ABN*(03/13/22 9:18 Coronavirus (COVID-19) PM) MARLYN) [facility] CenterEnonfiaYVSYHANELA1160-09-04 02:18:00 Test Item Value Reference Range Interpretation Comments Coronavirus (COVID-19) Detected MARLYN (test code = 1*ABN*(03/13/22 9:18 Coronavirus (COVID-19) PM) MARLYN) [facility] CenterAdlkingXSMKFZQUCX0849-73-59 02:18:00 Test Item Value Reference Range Interpretation Comments Coronavirus (COVID-19) Detected MARLYN (test code = 1*ABN*(03/13/22 9:18 Coronavirus (COVID-19) PM) MARLYN) [facility] CenterRdrvoutSXXDGAXKRJ6034-16-84 02:18:00 Test Item Value Reference Range Interpretation Comments Coronavirus (COVID-19) Detected MARLYN (test code = 1*ABN*(03/13/22 9:18 Coronavirus (COVID-19) PM) MARLYN) [facility] CenterWadvrrrFNAPJYUPDR5090-16-27 02:18:00 Test Item Value Reference Range Interpretation Comments Coronavirus (COVID-19) Detected MARLYN (test code = 1*ABN*(03/13/22 9:18 Coronavirus (COVID-19) PM) MARLYN) [facility] CenterGhtmyytTZNKXCXMBF8343-59-35 02:18:00 Test Item Value Reference Range Interpretation Comments Coronavirus (COVID-19) Detected MARLYN (test code = 1*ABN*(03/13/22 9:18 Coronavirus (COVID-19) PM) MARLYN) [facility] CenterWngzeylSBIIEVWKCZ0727-38-49 02:18:00 Test Item Value Reference Range Interpretation Comments Coronavirus (COVID-19) Detected MARLYN (test code = 1*ABN*(03/13/22 9:18 Coronavirus (COVID-19) PM) [facility]N) [facility] MARLYN+rtwuy9510-21-21 03:21:53 Test Item Value Reference Range Interpretation Comments Symptomatic as defined by CDC? (test code = 29327-7) Employed in No Healthcare? (test code = 40950-7) Resident in a No congregate care setting (including nursing homes, residential care for people with intellectual and developmental disabilities, psychiatric treatment facilities, group homes, board and care homes, homeless longterm, foster care or other): (test code = 57391-7) ? (test code = No 14737-6) SARS-CoV-2 RNA Nph Ql NOT DETECTED Not Detected The novel MARLYN+probe (test code = carolyne ramirez 29827-2) (SARS-CoV-2) ta rget nucleic acids a re not detected. COMMENT: The [employer] SARS-CoV-2 real-time RT-PCR based diagnostic test intended for the qualitative detection of SARS-CoV-2 viral RNA in a nasopharyngeal swab during acute phase of infection. This test was developed and its performance characteristics have been determined by the [facility]. This test has not been cleared or approved by the FDA. This testsystem has been authorized by the FDA under an Emergency Use Authorization (EUA). This test has beenvalidated in accordance with the FDA\\KG39389\\s Guidance document \\UC1360V\\Policy for Coronavirus Disease-2019 Tests During the Public Health Emergency\\EE7573T\\ (Revised December 2019) and is used for clinical purposes. It should not be regarded as investigational or for research\\MS5720V\\Detected\\CL3417H\\ results are indicative of the presence of the identified virus, but do not rule out bacterial infection or co-infection with other pathogens not detected by the test. Clinical correlation with patient his tory and other diagnostic information is necessary to determine patient infection status. \\QA6756W\\Not Detected\\LW5606B\\ results do not preclude SARS-CoV-2 and should not be used as the sole basis for treatment or other patient management decisions. Negative results must be combined with clinical observations, patient history, and/or epidemiological information.This laboratory is certified under the Clinical Laboratory Improvement Amendments (CLIA) as qualified to perform high complexity clinical laboratory testing.[facility] SARS-CoV-2 ORF1ab Resp Ql MARLYN+[id number] 01:19:53 Test Item Value Reference Range Interpretation Comments Symptomatic as defined No by CDC? (test code = 97707-9) Hospitalized? (test No code = 87345-0) ICU? (test code = No 04092-8) Employed in No Healthcare? (test code = 89512-5) Resident in a No congregate care setting (including nursing homes, residential care for people with intellectual and developmental disabilities, psychiatric treatment facilities, group homes, board and care homes, homeless longterm, foster care or other): (test code = 91193-2) ? (test code = No 48772-4) SARS-CoV-2 ORF1ab Resp NOT DETECTED Not Detected INTER PRETATION: No Ql MARLYN+probe (test detectabl e levels code = 92863-9) of SARS-CoV- 2 Coronavirus (COVID-19) were present [...] n with SARS-CoV-2 Coronavirus (COVID-19). COMMENT: This [employer] Aptima SARS-CoV-2 molecular diagnostic assay utilizes Payment Specialist Mediated Amplification (TMA) technology to rapidly detect the SARS-CoV-2 (COVID-19) virus from respiratory samples. In accordance with the FDA's guidance document "Policy for Diagnostic Tests for Coronavirus Disease- 2019 during the Public Health Emergency", this test was developed, and its performance characteristics were verified by the [facility] molecular diagnostics laboratory and is authorized [...] actual/normal in Platelet poor plasma by Coagulation pfcwe5469-69-98 00:00:00 Test Item Value Reference Range Interpretation Comments fact. VIII act. (test code = fact. VIII 106 act.) [facility] Medicalvon Willebrand factor (vWf).activity [Units/volume] in Platelet poor plasma by Tvapbjecpns6909-69-45 00:00:00 Test Item Value Reference Range Interpretation Comments ristocetin cofactor (test code = 57 ristocetin cofactor) [facility] MedicalaPTT in Platelet poor plasma by Coagulation galuo3755-06-08 00:00:00 Test Item Value Reference Range Interpretation Comments PTT (test code = PTT) 28.5 sec 23.6-31.6 [facility] MedicalAndrostenedione [Mass/volume] in Serum or Fvigxd6740-98-26 00:00:00 Test Item Value Reference Range Interpretation Comments androstenedione (1) (test code = 20 NG/dL androstenedione (1)) [facility] MedicalPT/DMC1593-06-74 00:00:00 Test Item Value Reference Range Interpretation Comments INR (test code = INR) 0.96 0.80-1.06 PT (test code = PT) 10.9 sec 9.1-11.9 [facility] Aeqxghm08-Xqqzkvyzuunsuqgncnz [Mass/volume] in Serum or Dkfjxz0335-66-10 00:00:00 Test Item Value Reference Range Interpretation Comments 17-hydroxyprogesterone (test code = <10 see below 17-hydroxyprogesterone) [facility] MedicalaPTT in Blood by Coagulation mrwfu2163-90-91 00:00:00 Test Item Value Reference Range Interpretation Comments P.T.T. (test code = P.T.T.) 30.9 [facility] MedicalChlamydia trachomatis and Neisseria gonorrhoeae rRNA panel - Specimen by MARLYN with probe jrmqlkpxd9817-37-61 00:00:00 Test Item Value Reference Range Interpretation [...] A (test code = trichomonas vaginalis (CV/TV)) [facility] MedicalCBC panel - Blood by Automated [id number] 00:00:00 Test Item Value Reference Range Interpretation [...] code = baso #) 0.0 10 0.0-0.2 [facility] MedicalThyrotropin [Units/volume] in Serum or Nfbluj5875-22-62 00:00:00 Test Item Value Reference Range Interpretation Comments TSH (test code = TSH) 2.010 uIU/mL 0.178-4.530 [facility] MedicalComprehensive metabolic 2000 panel - Serum or Rxpamv4917-17-98 00:00:00 Test Item Value Reference Range Interpretation [...] 124.483 >60.000 (test code = eGFR mL/min/1.73A? libyan) [facility] MedicalTestosterone [Mass/volume] in Serum or Plimor0498-88-90 00:00:00 Test Item Value Reference Range Interpretation Comments testosterone (test code = testosterone) < 2.5 8.4-48.1 L [facility] MedicalDehydroepiandrosterone sulfate (DHEA-S) [Mass/volume] in Serum or Rugbme2936-12-22 00:00:00 Test Item Value Reference Range Interpretation Comments DHEA-S (test code = DHEA-S) 43.1 ug/dL 98.8-340.0 L [facility] MedicalFollitropin and Lutropin panel [Units/volume] - Serum or Plasma 2021-11-26 00:00:00 Test Item Value Reference Range Interpretation Comments LH (test code = LH) 2.9 mIU/mL FSH (test code = FSH) 6.8 mIU/mL [facility] BouncefootballProlactin [Mass/volume] in Serum or Fsgrlj1529-21-48 00:00:00 Test Item Value Reference Range Interpretation Comments prolactin (test code = prolactin) 115.0 NG/mL 4.8-23.3 [facility] - Serum or Sijike8838-94-42 00:00:00 Test Item Value Reference Range Interpretation [...] Serum or Plasma (test code = 2089-1) [facility]DailyStrengthSTI czflo5544-14-25 00:00:00 Test Item Value Reference Range Interpretation Comments HPV thinprep (test code = HPV negative negative thinprep) [facility]DJ[facility] [place]-16 00:00:00 Test Item Value Reference Range Interpretation Comments LMP date: (test code = 09/09/2021 LMP date:) Pap, liquid-based nilm nilm (test code = Pap, liquid-based) source (liquid-based cervical (which cytology): (test code includes endocervical) = source (liquid-based cytology):) [facility] [id number] 21:13:00 Test Item Value Reference Range Interpretation Comments Glucose Lvl (test code = Glucose Lvl) 89 70-99 [facility] [id number] 21:13:00 Test Item Value Reference Range Interpretation Comments BUN (test code = BUN) 8 7-22 [facility] [id number] 21:13:00 Test Item Value Reference Range Interpretation Comments Creatinine Lvl (test code = Creatinine 0.55 0.50-1.40 Lvl) [facility] [id number] 21:13:00 Test Item Value Reference Range Interpretation Comments Sodium Lvl (test code = Sodium Lvl) 140 135-145 [place] 136721-05-24 21:13:00 Test Item Value Reference Range Interpretation Comments Potassium Lvl (test code = Potassium 3.5 3.5-5.1 Lvl) [place] 136721-05-24 21:13:00 Test Item Value Reference Range Interpretation Comments Chloride Lvl (test code = Chloride Lvl) 109 95-109 [place] 136721-05-24 21:13:00 Test Item Value Reference Range Interpretation Comments CO2 (test code = CO2) 27 24-32 [place] 136721-05-24 21:13:00 Test Item Value Reference Range Interpretation Comments Calcium Lvl (test code = Calcium Lvl) 9.0 8.5-10.5 [place] 136721-05-24 21:13:00 Test Item Value Reference Range Interpretation Comments AGAP (test code = AGAP) 7.5 10.0-20.0 [place] 136721-05-24 21:13:00 Test Item Value Reference Range Interpretation Comments eGFR (test code = eGFR) 126 [facility]2021-05-24 21:13:00 Test Item Value Reference Range Interpretation Comments Lactic Acid Lvl (test code = Lactic 0.6 0.5-2.2 Acid Lvl) [place] 39844021-05-24 21:13:00 Test Item Value Reference Range Interpretation Comments hCG Tot (test code = hCG Tot) no gt [facility]ownPfhyfrpAOWPCBENAC9839-37-55 21:13:00 Test Item Value Reference Range Interpretation Comments WBC X 10x3 (test code = WBC X 10x3) 7.9 3.7-10.4 [place] 842181-05-24 21:13:00 Test Item Value Reference Range Interpretation Comments RBC X 10x6 (test code = RBC X 10x6) 4.80 4.20-5.40 [place] 842181-05-24 21:13:00 Test Item Value Reference Range Interpretation Comments Hgb (test code = Hgb) 12.4 12.0-16.0 [place] 842181-05-24 21:13:00 Test Item Value Reference Range Interpretation Comments Hct (test code = Hct) 37.9 36.0-48.0 [place] 842181-05-24 21:13:00 Test Item Value Reference Range Interpretation Comments MCV (test code = MCV) 78.9 80.0-98.0 [place] 842181-05-24 21:13:00 Test Item Value Reference Range Interpretation Comments MCH (test code = MCH) 25.7 pg 27.0-31.0 [place] 842181-05-24 21:13:00 Test Item Value Reference Range Interpretation Comments MCHC (test code = MCHC) 32.6 32.0-36.0 [place] [address]-05-24 21:13:00 Test Item Value Reference Range Interpretation Comments RDW (test code = RDW) 15.5 11.5-14.5 [place] 842181-05-24 21:13:00 Test Item Value Reference Range Interpretation Comments Platelet (test code = Platelet) 243 133-450 [facility] UptownFhbxhohZLIFYYXLAE0530-53-32 21:13:00 Test Item Value Reference Range Interpretation Comments MPV (test code = MPV) 9.4 7.4-10.4 [place] [address]-05-24 21:13:00 Test Item Value Reference Range Interpretation Comments Segs (test code = Segs) 56.1 45.0-75.0 [place] [address]-05-24 21:13:00 Test Item Value Reference Range Interpretation Comments Lymphocytes (test code = Lymphocytes) 32.2 20.0-40.0 [place] [address]-05-24 21:13:00 Test Item Value Reference Range Interpretation Comments Monocytes (test code = Monocytes) 9.1 2.0-12.0 [place] [address]-05-24 21:13:00 Test Item Value Reference Range Interpretation Comments Eosinophils (test code = 2.2 See_Comment [A utomated message] The Eosinophils) system which ge nerated this result tra nsmitted reference range : <=4.0. The reference r kat was not used to int erpret this result as normal/abnormal . [place] 842181-05-24 21:13:00 Test Item Value Reference Range Interpretation Comments Basophils (test code = 0.4 See_Comment [Aut omated message] The Basophils) system which ge nerated this result tra nsmitted reference range : <=1.0. The reference r kat was not used to int erpret this result as normal/abnormal . [place] 842181-05-24 21:13:00 Test Item Value Reference Range Interpretation Comments Neutrophils # (test code = Neutrophils 4.4 1.5-8.1 #) [place] [address]-05-24 21:13:00 Test Item Value Reference Range Interpretation Comments Lymphocytes # (test code = Lymphocytes 2.5 1.0-5.5 #) [place] 842181-05-24 21:13:00 Test Item Value Reference Range Interpretation Comments Monocytes # (test code 0.7 See_Comment [Aut omated message] The = Monocytes #) system which generated this result tra nsmitted reference range : <=0.8. The reference r kat was not used to int erpret this result as normal/abnormal . [place] [address]-05-24 21:13:00 Test Item Value Reference Range Interpretation Comments Eosinophils # (test code 0.2 See_Comment [A utomated message] The = Eosinophils #) system whic h generated this result tra nsmitted reference range : <=0.5. The reference r kat was not used to int erpret this result as normal/abnormal . [place] 842181-05-24 21:13:00 Test Item Value Reference Range Interpretation Comments Microcyte (test code = 1+ *ABN*(01/20/21 Microcyte) 4:13 PM) [place] 136721-05-24 21:13:00 Test Item Value Reference Range Interpretation Comments Glucose Lvl (test code = Glucose Lvl) 89 70-99 [place] 136721-05-24 21:13:00 Test Item Value Reference Range Interpretation Comments BUN (test code = BUN) 8 7-22 [place] 136721-05-24 21:13:00 Test Item Value Reference Range Interpretation Comments Creatinine Lvl (test code = Creatinine 0.55 0.50-1.40 Lvl) [place] 136721-05-24 21:13:00 Test Item Value Reference Range Interpretation Comments Sodium Lvl (test code = Sodium Lvl) 140 135-145 [place] 136721-05-24 21:13:00 Test Item Value Reference Range Interpretation Comments Potassium Lvl (test code = Potassium 3.5 3.5-5.1 Lvl) [place] 136721-05-24 21:13:00 Test Item Value Reference Range Interpretation Comments Chloride Lvl (test code = Chloride Lvl) 109 95-109 [place] 136721-05-24 21:13:00 Test Item Value Reference Range Interpretation Comments CO2 (test code = CO2) 27 24-32 [place] 136721-05-24 21:13:00 Test Item Value Reference Range Interpretation Comments Calcium Lvl (test code = Calcium Lvl) 9.0 8.5-10.5 [place] 136721-05-24 21:13:00 Test Item Value Reference Range Interpretation Comments AGAP (test code = AGAP) 7.5 10.0-20.0 [place] 136721-05-24 21:13:00 Test Item Value Reference Range Interpretation Comments eGFR (test code = eGFR) 126 [place] 136721-05-24 21:13:00 Test Item Value Reference Range Interpretation Comments Lactic Acid Lvl (test code = Lactic 0.6 0.5-2.2 Acid Lvl) [place] 579731-05-24 21:13:00 Test Item Value Reference Range Interpretation Comments hCG Tot (test code = hCG Tot) no gt [place] 842181-05-24 21:13:00 Test Item Value Reference Range Interpretation Comments WBC X 10x3 (test code = WBC X 10x3) 7.9 3.7-10.4 [place] [address]-05-24 21:13:00 Test Item Value Reference Range Interpretation Comments RBC X 10x6 (test code = RBC X 10x6) 4.80 4.20-5.40 [place] [address]-05-24 21:13:00 Test Item Value Reference Range Interpretation Comments Hgb (test code = Hgb) 12.4 12.0-16.0 [place] [address]-05-24 21:13:00 Test Item Value Reference Range Interpretation Comments Hct (test code = Hct) 37.9 36.0-48.0 [place] 842181-05-24 21:13:00 Test Item Value Reference Range Interpretation Comments MCV (test code = MCV) 78.9 80.0-98.0 [place] 842181-05-24 21:13:00 Test Item Value Reference Range Interpretation Comments MCH (test code = MCH) 25.7 pg 27.0-31.0 [place] [address]-05-24 21:13:00 Test Item Value Reference Range Interpretation Comments MCHC (test code = MCHC) 32.6 32.0-36.0 [place] [address]-05-24 21:13:00 Test Item Value Reference Range Interpretation Comments RDW (test code = RDW) 15.5 11.5-14.5 [place] [address]-05-24 21:13:00 Test Item Value Reference Range Interpretation Comments Platelet (test code = Platelet) 243 133-450 [place] [address]-05-24 21:13:00 Test Item Value Reference Range Interpretation Comments MPV (test code = MPV) 9.4 7.4-10.4 [place] [address]-05-24 21:13:00 Test Item Value Reference Range Interpretation Comments Segs (test code = Segs) 56.1 45.0-75.0 [place] [address]-05-24 21:13:00 Test Item Value Reference Range Interpretation Comments Lymphocytes (test code = Lymphocytes) 32.2 20.0-40.0 [place] [address]-05-24 21:13:00 Test Item Value Reference Range Interpretation Comments Monocytes (test code = Monocytes) 9.1 2.0-12.0 [place] [address]-05-24 21:13:00 Test Item Value Reference Range Interpretation Comments Eosinophils (test code = 2.2 See_Comment [A utomated message] The Eosinophils) system which ge nerated this result tra nsmitted reference range : <=4.0. The reference r kat was not used to int erpret this result as normal/abnormal . [place] [address]-05-24 21:13:00 Test Item Value Reference Range Interpretation Comments Basophils (test code = 0.4 See_Comment [Aut omated message] The Basophils) system which ge nerated this result tra nsmitted reference range : <=1.0. The reference r kat was not used to int erpret this result as normal/abnormal . [place] 842181-05-24 21:13:00 Test Item Value Reference Range Interpretation Comments Neutrophils # (test code = Neutrophils 4.4 1.5-8.1 #) [place] 842181-05-24 21:13:00 Test Item Value Reference Range Interpretation Comments Lymphocytes # (test code = Lymphocytes 2.5 1.0-5.5 #) [place] 842181-05-24 21:13:00 Test Item Value Reference Range Interpretation Comments Monocytes # (test code 0.7 See_Comment [Aut omated message] The = Monocytes #) system which generated this result tra nsmitted reference range : <=0.8. The reference r kat was not used to int erpret this result as normal/abnormal . [place] 842181-05-24 21:13:00 Test Item Value Reference Range Interpretation Comments Eosinophils # (test code 0.2 See_Comment [A utomated message] The = Eosinophils #) system whic h generated this result tra nsmitted reference range : <=0.5. The reference r kat was not used to int erpret this result as normal/abnormal . [place] 842181-05-24 21:13:00 Test Item Value Reference Range Interpretation Comments Microcyte (test code = 1+ *ABN*(01/20/21 Microcyte) 4:13 PM) [place] [address]-05-24 21:13:00 Test Item Value Reference Range Interpretation Comments Glucose Lvl (test code = Glucose Lvl) 89 70-99 [place] 136721-05-24 21:13:00 Test Item Value Reference Range Interpretation Comments BUN (test code = BUN) 8 7-22 [place] 136721-05-24 21:13:00 Test Item Value Reference Range Interpretation Comments Creatinine Lvl (test code = Creatinine 0.55 0.50-1.40 Lvl) [place] 136721-05-24 21:13:00 Test Item Value Reference Range Interpretation Comments Sodium Lvl (test code = Sodium Lvl) 140 135-145 [place] 136721-05-24 21:13:00 Test Item Value Reference Range Interpretation Comments Potassium Lvl (test code = Potassium 3.5 3.5-5.1 Lvl) [place] 136721-05-24 21:13:00 Test Item Value Reference Range Interpretation Comments Chloride Lvl (test code = Chloride Lvl) 109 95-109 [place] 136721-05-24 21:13:00 Test Item Value Reference Range Interpretation Comments CO2 (test code = CO2) 27 24-32 [place] 136721-05-24 21:13:00 Test Item Value Reference Range Interpretation Comments Calcium Lvl (test code = Calcium Lvl) 9.0 8.5-10.5 [place] 136721-05-24 21:13:00 Test Item Value Reference Range Interpretation Comments AGAP (test code = AGAP) 7.5 10.0-20.0 [address]05-24 21:13:00 Test Item Value Reference Range Interpretation Comments eGFR (test code = eGFR) 126 [place] 136721-05-24 21:13:00 Test Item Value Reference Range Interpretation Comments Lactic Acid Lvl (test code = Lactic 0.6 0.5-2.2 Acid Lvl) [place] 579731-05-24 21:13:00 Test Item Value Reference Range Interpretation Comments hCG Tot (test code = hCG Tot) no gt [place] 842181-05-24 21:13:00 Test Item Value Reference Range Interpretation Comments WBC X 10x3 (test code = WBC X 10x3) 7.9 3.7-10.4 [place] [address]-05-24 21:13:00 Test Item Value Reference Range Interpretation Comments RBC X 10x6 (test code = RBC X 10x6) 4.80 4.20-5.40 [place] 842181-05-24 21:13:00 Test Item Value Reference Range Interpretation Comments Hgb (test code = Hgb) 12.4 12.0-16.0 [place] [address]-05-24 21:13:00 Test Item Value Reference Range Interpretation Comments Hct (test code = Hct) 37.9 36.0-48.0 [place] [address]-05-24 21:13:00 Test Item Value Reference Range Interpretation Comments MCV (test code = MCV) 78.9 80.0-98.0 [place] 842181-05-24 21:13:00 Test Item Value Reference Range Interpretation Comments MCH (test code = MCH) 25.7 pg 27.0-31.0 [facility]ptownFtsnpbeWPKOFORXQN5398-21-93 21:13:00 Test Item Value Reference Range Interpretation Comments MCHC (test code = MCHC) 32.6 32.0-36.0 [facility] UptownClxqpinPAHKHYOARQ0075-59-82 21:13:00 Test Item Value Reference Range Interpretation Comments RDW (test code = RDW) 15.5 11.5-14.5 [facility] UptownMwtdbocTQZWZNYWEO5448-83-79 21:13:00 Test Item Value Reference Range Interpretation Comments Platelet (test code = Platelet) 243 133-450 [facility] UptownFlwycniWNXJTGUHZQ0342-92-13 21:13:00 Test Item Value Reference Range Interpretation Comments MPV (test code = MPV) 9.4 7.4-10.4 [facility] UptownEkxhaggOYUCORFYVP3596-32-08 21:13:00 Test Item Value Reference Range Interpretation Comments Segs (test code = Segs) 56.1 45.0-75.0 [facility] UptownTahddxlFKDZPZFFIP5066-30-73 21:13:00 Test Item Value Reference Range Interpretation Comments Lymphocytes (test code = Lymphocytes) 32.2 20.0-40.0 [facility] UptownBqczwkkMOEQUFHHJM9405-68-08 21:13:00 Test Item Value Reference Range Interpretation Comments Monocytes (test code = Monocytes) 9.1 2.0-12.0 [facility] UptownCanwdkcGCMLWQVDSF4028-97-09 21:13:00 Test Item Value Reference Range Interpretation Comments Eosinophils (test code = 2.2 See_Comment [A utomated message] The Eosinophils) system which ge nerated this result tra nsmitted reference range : <=4.0. The reference r kat was not used to int erpret this result as normal/abnormal . [facility] UptownDigtpdnVMPZJSZPNA6624-47-68 21:13:00 Test Item Value Reference Range Interpretation Comments Basophils (test code = 0.4 See_Comment [Aut omated message] The Basophils) system which ge nerated this result tra nsmitted reference range : <=1.0. The reference r kat was not used to int erpret this result as normal/abnormal . [facility]2021-05-24 21:13:00 Test Item Value Reference Range Interpretation Comments Glucose Lvl (test code = Glucose Lvl) 89 70-99 [facility]2021-05-24 21:13:00 Test Item Value Reference Range Interpretation Comments BUN (test code = BUN) 8 7-22 [place] 136721-05-24 21:13:00 Test Item Value Reference Range Interpretation Comments Creatinine Lvl (test code = Creatinine 0.55 0.50-1.40 Lvl) [place] 136721-05-24 21:13:00 Test Item Value Reference Range Interpretation Comments Sodium Lvl (test code = Sodium Lvl) 140 135-145 [place] 136721-05-24 21:13:00 Test Item Value Reference Range Interpretation Comments Potassium Lvl (test code = Potassium 3.5 3.5-5.1 Lvl) [facility]2021-05-24 21:13:00 Test Item Value Reference Range Interpretation Comments Chloride Lvl (test code = Chloride Lvl) 109 95-109 [place] 136721-05-24 21:13:00 Test Item Value Reference Range Interpretation Comments CO2 (test code = CO2) 27 24-32 [place] 136721-05-24 21:13:00 Test Item Value Reference Range Interpretation Comments Calcium Lvl (test code = Calcium Lvl) 9.0 8.5-10.5 [facility]2021-05-24 21:13:00 Test Item Value Reference Range Interpretation Comments AGAP (test code = AGAP) 7.5 10.0-20.0 [facility]2021-05-24 21:13:00 Test Item Value Reference Range Interpretation Comments eGFR (test code = eGFR) 126 [facility] UptownXzonpowSGHVRRZJLX8025-59-07 21:13:00 Test Item Value Reference Range Interpretation Comments Neutrophils # (test code = Neutrophils 4.4 1.5-8.1 #) [facility]2021-05-24 21:13:00 Test Item Value Reference Range Interpretation Comments Lactic Acid Lvl (test code = Lactic 0.6 0.5-2.2 Acid Lvl) [facility] IrvingObkjbnmZFKXLOUVCPZQK5207-52-85 21:13:00 Test Item Value Reference Range Interpretation Comments hCG Tot (test code = hCG Tot) no gt [facility] UptownPgxncjuCLMKHKUGGF8362-44-29 21:13:00 Test Item Value Reference Range Interpretation Comments WBC X 10x3 (test code = WBC X 10x3) 7.9 3.7-10.4 [facility] UptownMzzgzkaJZCYHQTTXT6098-19-04 21:13:00 Test Item Value Reference Range Interpretation Comments RBC X 10x6 (test code = RBC X 10x6) 4.80 4.20-5.40 [facility] UptownPxwovusWQVVHQASYD5075-95-90 21:13:00 Test Item Value Reference Range Interpretation Comments Hgb (test code = Hgb) 12.4 12.0-16.0 [facility]ownJfpfclmFMNNIAAPLS9867-12-37 21:13:00 Test Item Value Reference Range Interpretation Comments Hct (test code = Hct) 37.9 36.0-48.0 [facility]ptownLvykmuyTELFAQETBS5286-84-22 21:13:00 Test Item Value Reference Range Interpretation Comments MCV (test code = MCV) 78.9 80.0-98.0 [place] 842181-05-24 21:13:00 Test Item Value Reference Range Interpretation Comments MCH (test code = MCH) 25.7 pg 27.0-31.0 [facility]ownJldnxweSBPFSTMQQC2199-49-24 21:13:00 Test Item Value Reference Range Interpretation Comments MCHC (test code = MCHC) 32.6 32.0-36.0 [facility]ptownCcwrpekGDNIQQPVNP6996-39-51 21:13:00 Test Item Value Reference Range Interpretation Comments RDW (test code = RDW) 15.5 11.5-14.5 [place] 842181-05-24 21:13:00 Test Item Value Reference Range Interpretation Comments Lymphocytes # (test code = Lymphocytes 2.5 1.0-5.5 #) [facility]ptownFihlzwqZDDIAJPAHE9760-05-97 21:13:00 Test Item Value Reference Range Interpretation Comments Platelet (test code = Platelet) 243 133-450 [facility]ptownRbsdbfkAKTVUOJXXL4833-19-54 21:13:00 Test Item Value Reference Range Interpretation Comments MPV (test code = MPV) 9.4 7.4-10.4 [place] 842181-05-24 21:13:00 Test Item Value Reference Range Interpretation Comments Segs (test code = Segs) 56.1 45.0-75.0 [facility]ownEuhzshdNPWVBKFIQG0305-82-83 21:13:00 Test Item Value Reference Range Interpretation Comments Lymphocytes (test code = Lymphocytes) 32.2 20.0-40.0 [place] 842181-05-24 21:13:00 Test Item Value Reference Range Interpretation Comments Monocytes (test code = Monocytes) 9.1 2.0-12.0 [place] 842181-05-24 21:13:00 Test Item Value Reference Range Interpretation Comments Eosinophils (test code = 2.2 See_Comment [A utomated message] The Eosinophils) system which ge nerated this result tra nsmitted reference range : <=4.0. The reference r kat was not used to int erpret this result as normal/abnormal . [place] 842181-05-24 21:13:00 Test Item Value Reference Range Interpretation Comments Basophils (test code = 0.4 See_Comment [Aut omated message] The Basophils) system which ge nerated this result tra nsmitted reference range : <=1.0. The reference r kat was not used to int erpret this result as normal/abnormal . [facility]ownFqvxxrtKXFZGGKQMO9497-03-50 21:13:00 Test Item Value Reference Range Interpretation Comments Neutrophils # (test code = Neutrophils 4.4 1.5-8.1 #) [facility]ptownRjhuitiAYGYKCJXZB3932-93-29 21:13:00 Test Item Value Reference Range Interpretation Comments Lymphocytes # (test code = Lymphocytes 2.5 1.0-5.5 #) [facility]ptownYnsatxnLBGBCZYCRH5607-74-54 21:13:00 Test Item Value Reference Range Interpretation Comments Monocytes # (test code 0.7 See_Comment [Aut omated message] The = Monocytes #) system which generated this result tra nsmitted reference range : <=0.8. The reference r kat was not used to int erpret this result as normal/abnormal . [place] 842181-05-24 21:13:00 Test Item Value Reference Range Interpretation Comments Monocytes # (test code 0.7 See_Comment [Aut omated message] The = Monocytes #) system which generated this result tra nsmitted reference range : <=0.8. The reference r kat was not used to int erpret this result as normal/abnormal . [place] 842181-05-24 21:13:00 Test Item Value Reference Range Interpretation Comments Eosinophils # (test code 0.2 See_Comment [A utomated message] The = Eosinophils #) system [employer] generated this result tra nsmitted reference range : <=0.5. The reference r kat was not used to int erpret this result as normal/abnormal . [place] [address]-05-24 21:13:00 Test Item Value Reference Range Interpretation Comments Microcyte (test code = 1+ *ABN*(01/20/21 Microcyte) 4:13 PM) [place] [address]-05-24 21:13:00 Test Item Value Reference Range Interpretation Comments Eosinophils # (test code 0.2 See_Comment [A utomated message] The = Eosinophils #) system [employer] generated this result tra nsmitted reference range : <=0.5. The reference r kat was not used to int erpret this result as normal/abnormal . [place] [address]-05-24 21:13:00 Test Item Value Reference Range Interpretation Comments Microcyte (test code = 1+ *ABN*(01/20/21 Microcyte) 4:13 PM) [place] 136721-05-24 21:13:00 Test Item Value Reference Range Interpretation Comments Glucose Lvl (test code = Glucose Lvl) 89 70-99 [place] 136721-05-24 21:13:00 Test Item Value Reference Range Interpretation Comments BUN (test code = BUN) 8 7-22 [place] [address]-05-24 21:13:00 Test Item Value Reference Range Interpretation Comments Creatinine Lvl (test code = Creatinine 0.55 0.50-1.40 Lvl) [place] 136721-05-24 21:13:00 Test Item Value Reference Range Interpretation Comments Sodium Lvl (test code = Sodium Lvl) 140 135-145 [place] [address]-05-24 21:13:00 Test Item Value Reference Range Interpretation Comments Potassium Lvl (test code = Potassium 3.5 3.5-5.1 Lvl) [place] 136721-05-24 21:13:00 Test Item Value Reference Range Interpretation Comments Chloride Lvl (test code = Chloride Lvl) 109 95-109 [place] 136721-05-24 21:13:00 Test Item Value Reference Range Interpretation Comments CO2 (test code = CO2) 27 24-32 [facility]2021-05-24 21:13:00 Test Item Value Reference Range Interpretation Comments Calcium Lvl (test code = Calcium Lvl) 9.0 8.5-10.5 [facility]2021-05-24 21:13:00 Test Item Value Reference Range Interpretation Comments AGAP (test code = AGAP) 7.5 10.0-20.0 [place] 136721-05-24 21:13:00 Test Item Value Reference Range Interpretation Comments eGFR (test code = eGFR) 126 [facility]2021-05-24 21:13:00 Test Item Value Reference Range Interpretation Comments Lactic Acid Lvl (test code = Lactic 0.6 0.5-2.2 Acid Lvl) [place] 39844021-05-24 21:13:00 Test Item Value Reference Range Interpretation Comments hCG Tot (test code = hCG Tot) no gt [facility]ownJfbdvajGGLFZNXFYU1968-75-88 21:13:00 Test Item Value Reference Range Interpretation Comments WBC X 10x3 (test code = WBC X 10x3) 7.9 3.7-10.4 [facility] UptownSewlcunJBANYZEEYC9978-07-95 21:13:00 Test Item Value Reference Range Interpretation Comments RBC X 10x6 (test code = RBC X 10x6) 4.80 4.20-5.40 [place] 842181-05-24 21:13:00 Test Item Value Reference Range Interpretation Comments Hgb (test code = Hgb) 12.4 12.0-16.0 [place] 842181-05-24 21:13:00 Test Item Value Reference Range Interpretation Comments Hct (test code = Hct) 37.9 36.0-48.0 [place] [address]-05-24 21:13:00 Test Item Value Reference Range Interpretation Comments MCV (test code = MCV) 78.9 80.0-98.0 [place] 842181-05-24 21:13:00 Test Item Value Reference Range Interpretation Comments MCH (test code = MCH) 25.7 pg 27.0-31.0 [place] 842181-05-24 21:13:00 Test Item Value Reference Range Interpretation Comments MCHC (test code = MCHC) 32.6 32.0-36.0 [place] 842181-05-24 21:13:00 Test Item Value Reference Range Interpretation Comments RDW (test code = RDW) 15.5 11.5-14.5 [place] 842181-05-24 21:13:00 Test Item Value Reference Range Interpretation Comments Platelet (test code = Platelet) 243 133-450 [place] 842181-05-24 21:13:00 Test Item Value Reference Range Interpretation Comments MPV (test code = MPV) 9.4 7.4-10.4 [place] 842181-05-24 21:13:00 Test Item Value Reference Range Interpretation Comments Segs (test code = Segs) 56.1 45.0-75.0 [place] [address]-05-24 21:13:00 Test Item Value Reference Range Interpretation Comments Lymphocytes (test code = Lymphocytes) 32.2 20.0-40.0 [place] 842181-05-24 21:13:00 Test Item Value Reference Range Interpretation Comments Monocytes (test code = Monocytes) 9.1 2.0-12.0 [place] 842181-05-24 21:13:00 Test Item Value Reference Range Interpretation Comments Eosinophils (test code = 2.2 See_Comment [A utomated message] The Eosinophils) system which ge nerated this result tra nsmitted reference range : <=4.0. The reference r kat was not used to int erpret this result as normal/abnormal . [facility]ptownNnuqjazYOJIGBVETC8924-04-38 21:13:00 Test Item Value Reference Range Interpretation Comments Basophils (test code = 0.4 See_Comment [Aut omated message] The Basophils) system which ge nerated this result tra nsmitted reference range : <=1.0. The reference r kat was not used to int erpret this result as normal/abnormal . [place] 842181-05-24 21:13:00 Test Item Value Reference Range Interpretation Comments Neutrophils # (test code = Neutrophils 4.4 1.5-8.1 #) [facility] UptownDqsohorKHKAKCXMXG6045-80-63 21:13:00 Test Item Value Reference Range Interpretation Comments Lymphocytes # (test code = Lymphocytes 2.5 1.0-5.5 #) [place] 842181-05-24 21:13:00 Test Item Value Reference Range Interpretation Comments Monocytes # (test code 0.7 See_Comment [Aut omated message] The = Monocytes #) system which generated this result tra nsmitted reference range : <=0.8. The reference r kat was not used to int erpret this result as normal/abnormal . [place] 842181-05-24 21:13:00 Test Item Value Reference Range Interpretation Comments Eosinophils # (test code 0.2 See_Comment [A utomated message] The = Eosinophils #) system whic h generated this result tra nsmitted reference range : <=0.5. The reference r kat was not used to int erpret this result as normal/abnormal . [place] 842181-05-24 21:13:00 Test Item Value Reference Range Interpretation Comments Microcyte (test code = 1+ *ABN*(01/20/21 Microcyte) 4:13 PM) [place] 136721-05-24 21:13:00 Test Item Value Reference Range Interpretation Comments Glucose Lvl (test code = Glucose Lvl) 89 70-99 [place] 136721-05-24 21:13:00 Test Item Value Reference Range Interpretation Comments BUN (test code = BUN) 8 7-22 [place] 136721-05-24 21:13:00 Test Item Value Reference Range Interpretation Comments Creatinine Lvl (test code = Creatinine 0.55 0.50-1.40 Lvl) [place] 136721-05-24 21:13:00 Test Item Value Reference Range Interpretation Comments Sodium Lvl (test code = Sodium Lvl) 140 135-145 [place] 136721-05-24 21:13:00 Test Item Value Reference Range Interpretation Comments Potassium Lvl (test code = Potassium 3.5 3.5-5.1 Lvl) [place] 136721-05-24 21:13:00 Test Item Value Reference Range Interpretation Comments Chloride Lvl (test code = Chloride Lvl) 109 95-109 [place] 136721-05-24 21:13:00 Test Item Value Reference Range Interpretation Comments CO2 (test code = CO2) 27 24-32 [place] 136721-05-24 21:13:00 Test Item Value Reference Range Interpretation Comments Calcium Lvl (test code = Calcium Lvl) 9.0 8.5-10.5 [facility]2021-05-24 21:13:00 Test Item Value Reference Range Interpretation Comments AGAP (test code = AGAP) 7.5 10.0-20.0 [facility]2021-05-24 21:13:00 Test Item Value Reference Range Interpretation Comments eGFR (test code = eGFR) 126 [facility]2021-05-24 21:13:00 Test Item Value Reference Range Interpretation Comments Lactic Acid Lvl (test code = Lactic 0.6 0.5-2.2 Acid Lvl) [facility]CdjnjwtKQCALLYXCCKTR7730-46-25 21:13:00 Test Item Value Reference Range Interpretation Comments hCG Tot (test code = hCG Tot) no gt [facility]ptownAhtcnjyEHSMKFEOVF4885-66-65 21:13:00 Test Item Value Reference Range Interpretation Comments WBC X 10x3 (test code = WBC X 10x3) 7.9 3.7-10.4 [facility]ptownJawhryoULVSWBKORC8964-09-43 21:13:00 Test Item Value Reference Range Interpretation Comments RBC X 10x6 (test code = RBC X 10x6) 4.80 4.20-5.40 [place] 842181-05-24 21:13:00 Test Item Value Reference Range Interpretation Comments Hgb (test code = Hgb) 12.4 12.0-16.0 [place] 842181-05-24 21:13:00 Test Item Value Reference Range Interpretation Comments Hct (test code = Hct) 37.9 36.0-48.0 [place] 842181-05-24 21:13:00 Test Item Value Reference Range Interpretation Comments MCV (test code = MCV) 78.9 80.0-98.0 [place] [address]-05-24 21:13:00 Test Item Value Reference Range Interpretation Comments MCH (test code = MCH) 25.7 pg 27.0-31.0 [facility]ownOpnibcsHGMFJQHZHH7459-22-55 21:13:00 Test Item Value Reference Range Interpretation Comments MCHC (test code = MCHC) 32.6 32.0-36.0 [facility] UptownCaoqjuyUMLHNCAUDD5167-68-21 21:13:00 Test Item Value Reference Range Interpretation Comments RDW (test code = RDW) 15.5 11.5-14.5 [place] 842181-05-24 21:13:00 Test Item Value Reference Range Interpretation Comments Platelet (test code = Platelet) 243 133-450 [place] 842181-05-24 21:13:00 Test Item Value Reference Range Interpretation Comments MPV (test code = MPV) 9.4 7.4-10.4 [place] 842181-05-24 21:13:00 Test Item Value Reference Range Interpretation Comments Segs (test code = Segs) 56.1 45.0-75.0 [place] 842181-05-24 21:13:00 Test Item Value Reference Range Interpretation Comments Lymphocytes (test code = Lymphocytes) 32.2 20.0-40.0 [place] [address]-05-24 21:13:00 Test Item Value Reference Range Interpretation Comments Monocytes (test code = Monocytes) 9.1 2.0-12.0 [place] 842181-05-24 21:13:00 Test Item Value Reference Range Interpretation Comments Eosinophils (test code = 2.2 See_Comment [A utomated message] The Eosinophils) system which ge nerated this result tra nsmitted reference range : <=4.0. The reference r kat was not used to int erpret this result as normal/abnormal . [place] 842181-05-24 21:13:00 Test Item Value Reference Range Interpretation Comments Basophils (test code = 0.4 See_Comment [Aut omated message] The Basophils) system which ge nerated this result tra nsmitted reference range : <=1.0. The reference r kat was not used to int erpret this result as normal/abnormal . [place] 842181-05-24 21:13:00 Test Item Value Reference Range Interpretation Comments Neutrophils # (test code = Neutrophils 4.4 1.5-8.1 #) [place] [address]-05-24 21:13:00 Test Item Value Reference Range Interpretation Comments Lymphocytes # (test code = Lymphocytes 2.5 1.0-5.5 #) [place] 842181-05-24 21:13:00 Test Item Value Reference Range Interpretation Comments Monocytes # (test code 0.7 See_Comment [Aut omated message] The = Monocytes #) system which generated this result tra nsmitted reference range : <=0.8. The reference r kat was not used to int erpret this result as normal/abnormal . [place] 842181-05-24 21:13:00 Test Item Value Reference Range Interpretation Comments Eosinophils # (test code 0.2 See_Comment [A utomated message] The = Eosinophils #) system whic h generated this result tra nsmitted reference range : <=0.5. The reference r kat was not used to int erpret this result as normal/abnormal . [place] 842181-05-24 21:13:00 Test Item Value Reference Range Interpretation Comments Microcyte (test code = 1+ *ABN*(01/20/21 Microcyte) 4:13 PM) [place] 136721-05-24 21:13:00 Test Item Value Reference Range Interpretation Comments Glucose Lvl (test code = Glucose Lvl) 89 70-99 [place] 136721-05-24 21:13:00 Test Item Value Reference Range Interpretation Comments BUN (test code = BUN) 8 7-22 [place] 136721-05-24 21:13:00 Test Item Value Reference Range Interpretation Comments Creatinine Lvl (test code = Creatinine 0.55 0.50-1.40 Lvl) [place] 136721-05-24 21:13:00 Test Item Value Reference Range Interpretation Comments Sodium Lvl (test code = Sodium Lvl) 140 135-145 [place] 136721-05-24 21:13:00 Test Item Value Reference Range Interpretation Comments Potassium Lvl (test code = Potassium 3.5 3.5-5.1 Lvl) [place] 136721-05-24 21:13:00 Test Item Value Reference Range Interpretation Comments Chloride Lvl (test code = Chloride Lvl) 109 95-109 [place] 136721-05-24 21:13:00 Test Item Value Reference Range Interpretation Comments CO2 (test code = CO2) 27 24-32 [place] 136721-05-24 21:13:00 Test Item Value Reference Range Interpretation Comments Calcium Lvl (test code = Calcium Lvl) 9.0 8.5-10.5 [place] 136721-05-24 21:13:00 Test Item Value Reference Range Interpretation Comments AGAP (test code = AGAP) 7.5 10.0-20.0 [facility]2021-05-24 21:13:00 Test Item Value Reference Range Interpretation Comments eGFR (test code = eGFR) 126 [facility]2021-05-24 21:13:00 Test Item Value Reference Range Interpretation Comments Lactic Acid Lvl (test code = Lactic 0.6 0.5-2.2 Acid Lvl) [place] 39844021-05-24 21:13:00 Test Item Value Reference Range Interpretation Comments hCG Tot (test code = hCG Tot) no gt [facility]ownIjlzgtgYJOUSQJVTX9951-08-22 21:13:00 Test Item Value Reference Range Interpretation Comments WBC X 10x3 (test code = WBC X 10x3) 7.9 3.7-10.4 [facility]ownWxduoozQNJUJOJLOO6149-81-59 21:13:00 Test Item Value Reference Range Interpretation Comments RBC X 10x6 (test code = RBC X 10x6) 4.80 4.20-5.40 [facility] UptownLwkfgvbSPLXDDFUUL4425-81-97 21:13:00 Test Item Value Reference Range Interpretation Comments Hgb (test code = Hgb) 12.4 12.0-16.0 [facility]ptownHctdguvCIJWKFFRKZ9070-72-22 21:13:00 Test Item Value Reference Range Interpretation Comments Hct (test code = Hct) 37.9 36.0-48.0 [facility]ptownDrcblgjIRMYQAOBSM0445-91-02 21:13:00 Test Item Value Reference Range Interpretation Comments MCV (test code = MCV) 78.9 80.0-98.0 [place] [address]-05-24 21:13:00 Test Item Value Reference Range Interpretation Comments MCH (test code = MCH) 25.7 pg 27.0-31.0 [facility]ptownDkzgxjiXZDYPSGRHB5125-06-07 21:13:00 Test Item Value Reference Range Interpretation Comments MCHC (test code = MCHC) 32.6 32.0-36.0 [facility] UptownKixrbcfVCJMVIUYUZ6624-68-37 21:13:00 Test Item Value Reference Range Interpretation Comments RDW (test code = RDW) 15.5 11.5-14.5 [facility] UptownQmpikdaKMOCGBDWEH9373-32-37 21:13:00 Test Item Value Reference Range Interpretation Comments Platelet (test code = Platelet) 243 133-450 [facility] UptownVzmqfqsVWWCFRSCDI0882-22-90 21:13:00 Test Item Value Reference Range Interpretation Comments MPV (test code = MPV) 9.4 7.4-10.4 [facility]ptownPumzsmoKCUCKERTKJ8655-66-72 21:13:00 Test Item Value Reference Range Interpretation Comments Segs (test code = Segs) 56.1 45.0-75.0 [place] 842181-05-24 21:13:00 Test Item Value Reference Range Interpretation Comments Lymphocytes (test code = Lymphocytes) 32.2 20.0-40.0 [place] 842181-05-24 21:13:00 Test Item Value Reference Range Interpretation Comments Monocytes (test code = Monocytes) 9.1 2.0-12.0 [facility] UptownGafljjfJCGWAUXKDC9271-32-37 21:13:00 Test Item Value Reference Range Interpretation Comments Eosinophils (test code = 2.2 See_Comment [A utomated message] The Eosinophils) system which ge nerated this result tra nsmitted reference range : <=4.0. The reference r kat was not used to int erpret this result as normal/abnormal . [facility] UptownFerkzveSCYCDAXXMB6908-26-62 21:13:00 Test Item Value Reference Range Interpretation Comments Basophils (test code = 0.4 See_Comment [Aut omated message] The Basophils) system which ge nerated this result tra nsmitted reference range : <=1.0. The reference r kat was not used to int erpret this result as normal/abnormal . [facility]ptownUmecwqmGFEXUSEVAX4169-29-73 21:13:00 Test Item Value Reference Range Interpretation Comments Neutrophils # (test code = Neutrophils 4.4 1.5-8.1 #) [place] 842181-05-24 21:13:00 Test Item Value Reference Range Interpretation Comments Lymphocytes # (test code = Lymphocytes 2.5 1.0-5.5 #) [place] [address]-05-24 21:13:00 Test Item Value Reference Range Interpretation Comments Monocytes # (test code 0.7 See_Comment [Aut omated message] The = Monocytes #) system which generated this result tra nsmitted reference range : <=0.8. The reference r kat was not used to int erpret this result as normal/abnormal . [place] 842181-05-24 21:13:00 Test Item Value Reference Range Interpretation Comments Eosinophils # (test code 0.2 See_Comment [A utomated message] The = Eosinophils #) system whic h generated this result tra nsmitted reference range : <=0.5. The reference r kat was not used to int erpret this result as normal/abnormal . [place] 842181-05-24 21:13:00 Test Item Value Reference Range Interpretation Comments Microcyte (test code = 1+ *ABN*(01/20/21 Microcyte) 4:13 PM) [place] 136721-05-24 21:13:00 Test Item Value Reference Range Interpretation Comments Glucose Lvl (test code = Glucose Lvl) 89 70-99 [facility]2021-05-24 21:13:00 Test Item Value Reference Range Interpretation Comments BUN (test code = BUN) 8 7-22 [place] 136721-05-24 21:13:00 Test Item Value Reference Range Interpretation Comments Creatinine Lvl (test code = Creatinine 0.55 0.50-1.40 Lvl) [facility]2021-05-24 21:13:00 Test Item Value Reference Range Interpretation Comments Sodium Lvl (test code = Sodium Lvl) 140 135-145 [facility]2021-05-24 21:13:00 Test Item Value Reference Range Interpretation Comments Potassium Lvl (test code = Potassium 3.5 3.5-5.1 Lvl) [facility]2021-05-24 21:13:00 Test Item Value Reference Range Interpretation Comments Chloride Lvl (test code = Chloride Lvl) 109 95-109 [place] 136721-05-24 21:13:00 Test Item Value Reference Range Interpretation Comments CO2 (test code = CO2) 27 24-32 [place] 136721-05-24 21:13:00 Test Item Value Reference Range Interpretation Comments Calcium Lvl (test code = Calcium Lvl) 9.0 8.5-10.5 [facility]2021-05-24 21:13:00 Test Item Value Reference Range Interpretation Comments AGAP (test code = AGAP) 7.5 10.0-20.0 [place] 136721-05-24 21:13:00 Test Item Value Reference Range Interpretation Comments eGFR (test code = eGFR) 126 [facility]2021-05-24 21:13:00 Test Item Value Reference Range Interpretation Comments Lactic Acid Lvl (test code = Lactic 0.6 0.5-2.2 Acid Lvl) [place] 39844021-05-24 21:13:00 Test Item Value Reference Range Interpretation Comments hCG Tot (test code = hCG Tot) no gt [facility] UptownZbijfnoUDSXINCLIZ3646-39-70 21:13:00 Test Item Value Reference Range Interpretation Comments WBC X 10x3 (test code = WBC X 10x3) 7.9 3.7-10.4 [facility] UptownYrrkrajOKWRUSJZUY3285-39-41 21:13:00 Test Item Value Reference Range Interpretation Comments RBC X 10x6 (test code = RBC X 10x6) 4.80 4.20-5.40 [facility] UptownPiqyjydEEASNKUWOX4632-27-57 21:13:00 Test Item Value Reference Range Interpretation Comments Hgb (test code = Hgb) 12.4 12.0-16.0 [facility] UptownRusghgfXQKUGAKJMB2812-40-26 21:13:00 Test Item Value Reference Range Interpretation Comments Hct (test code = Hct) 37.9 36.0-48.0 [facility] UptownLqbaovjKYKOGUQYFG3795-05-12 21:13:00 Test Item Value Reference Range Interpretation Comments MCV (test code = MCV) 78.9 80.0-98.0 [facility] UptownQweiikpHTDQDKGVDF8404-85-74 21:13:00 Test Item Value Reference Range Interpretation Comments MCH (test code = MCH) 25.7 pg 27.0-31.0 [facility] UptownOksaoosDBEGAYXLAO6491-20-11 21:13:00 Test Item Value Reference Range Interpretation Comments MCHC (test code = MCHC) 32.6 32.0-36.0 [facility] UptownPmzjpaoNPQSNMKKAE5504-36-88 21:13:00 Test Item Value Reference Range Interpretation Comments RDW (test code = RDW) 15.5 11.5-14.5 [facility] UptownGjvpmvbSUDNBGMDOH2122-75-86 21:13:00 Test Item Value Reference Range Interpretation Comments Platelet (test code = Platelet) 243 133-450 [facility] UptownRhqgtfwJVRHFMRMLZ5722-34-29 21:13:00 Test Item Value Reference Range Interpretation Comments MPV (test code = MPV) 9.4 7.4-10.4 [place] 842181-05-24 21:13:00 Test Item Value Reference Range Interpretation Comments Segs (test code = Segs) 56.1 45.0-75.0 [place] 842181-05-24 21:13:00 Test Item Value Reference Range Interpretation Comments Lymphocytes (test code = Lymphocytes) 32.2 20.0-40.0 [place] 842181-05-24 21:13:00 Test Item Value Reference Range Interpretation Comments Monocytes (test code = Monocytes) 9.1 2.0-12.0 [place] 842181-05-24 21:13:00 Test Item Value Reference Range Interpretation Comments Eosinophils (test code = 2.2 See_Comment [A utomated message] The Eosinophils) system which ge nerated this result tra nsmitted reference range : <=4.0. The reference r kat was not used to int erpret this result as normal/abnormal . [place] 842181-05-24 21:13:00 Test Item Value Reference Range Interpretation Comments Basophils (test code = 0.4 See_Comment [Aut omated message] The Basophils) system which ge nerated this result tra nsmitted reference range : <=1.0. The reference r kat was not used to int erpret this result as normal/abnormal . [place] 842181-05-24 21:13:00 Test Item Value Reference Range Interpretation Comments Neutrophils # (test code = Neutrophils 4.4 1.5-8.1 #) [facility] UptownKzucarzCUPKZFDXEZ4385-68-32 21:13:00 Test Item Value Reference Range Interpretation Comments Lymphocytes # (test code = Lymphocytes 2.5 1.0-5.5 #) [place] 842181-05-24 21:13:00 Test Item Value Reference Range Interpretation Comments Monocytes # (test code 0.7 See_Comment [Aut omated message] The = Monocytes #) system which generated this result tra nsmitted reference range : <=0.8. The reference r kat was not used to int erpret this result as normal/abnormal . [place] 842181-05-24 21:13:00 Test Item Value Reference Range Interpretation Comments Eosinophils # (test code 0.2 See_Comment [A utomated message] The = Eosinophils #) system [employer] generated this result tra nsmitted reference range : <=0.5. The reference r kat was not used to int erpret this result as normal/abnormal . [facility] UptownDbzdeqvEGKOAZEPIJ4792-09-59 21:13:00 Test Item Value Reference Range Interpretation Comments Microcyte (test code = 1+ *ABN*(01/20/21 Microcyte) 4:13 PM) [place] 136721-05-24 21:13:00 Test Item Value Reference Range Interpretation Comments Glucose Lvl (test code = Glucose Lvl) 89 70-99 [place] 136721-05-24 21:13:00 Test Item Value Reference Range Interpretation Comments BUN (test code = BUN) 8 7-22 [place] 136721-05-24 21:13:00 Test Item Value Reference Range Interpretation Comments Creatinine Lvl (test code = Creatinine 0.55 0.50-1.40 Lvl) [place] 136721-05-24 21:13:00 Test Item Value Reference Range Interpretation Comments Sodium Lvl (test code = Sodium Lvl) 140 135-145 [place] 136721-05-24 21:13:00 Test Item Value Reference Range Interpretation Comments Potassium Lvl (test code = Potassium 3.5 3.5-5.1 Lvl) [place] 136721-05-24 21:13:00 Test Item Value Reference Range Interpretation Comments Chloride Lvl (test code = Chloride Lvl) 109 95-109 [place] 136721-05-24 21:13:00 Test Item Value Reference Range Interpretation Comments CO2 (test code = CO2) 27 24-32 [place] 136721-05-24 21:13:00 Test Item Value Reference Range Interpretation Comments Calcium Lvl (test code = Calcium Lvl) 9.0 8.5-10.5 [place] 136721-05-24 21:13:00 Test Item Value Reference Range Interpretation Comments AGAP (test code = AGAP) 7.5 10.0-20.0 [place] 136721-05-24 21:13:00 Test Item Value Reference Range Interpretation Comments eGFR (test code = eGFR) 126 [place] 136721-05-24 21:13:00 Test Item Value Reference Range Interpretation Comments Lactic Acid Lvl (test code = Lactic 0.6 0.5-2.2 Acid Lvl) [facility]xbwtsoHEZKUEXKAYRCE8536-19-00 21:13:00 Test Item Value Reference Range Interpretation Comments hCG Tot (test code = hCG Tot) no gt [facility] UptownOvchymyYEGNFBQGOJ7294-45-66 21:13:00 Test Item Value Reference Range Interpretation Comments WBC X 10x3 (test code = WBC X 10x3) 7.9 3.7-10.4 [facility] UptownBmokzjyBIIBIAPELP5398-42-11 21:13:00 Test Item Value Reference Range Interpretation Comments RBC X 10x6 (test code = RBC X 10x6) 4.80 4.20-5.40 [facility] UptownVlltllnPZMATWRSVX8492-44-93 21:13:00 Test Item Value Reference Range Interpretation Comments Hgb (test code = Hgb) 12.4 12.0-16.0 [facility] UptownWlncrhjIOJYMCMLAQ2867-38-67 21:13:00 Test Item Value Reference Range Interpretation Comments Hct (test code = Hct) 37.9 36.0-48.0 [facility] UptownVjtatsdKSQTVLUVUZ7109-68-42 21:13:00 Test Item Value Reference Range Interpretation Comments MCV (test code = MCV) 78.9 80.0-98.0 [facility] UptownOakzzxrSRNYOLGVVR3142-40-05 21:13:00 Test Item Value Reference Range Interpretation Comments MCH (test code = MCH) 25.7 pg 27.0-31.0 [facility] UptownSzewlwpWNIYLNEXWF9393-59-33 21:13:00 Test Item Value Reference Range Interpretation Comments MCHC (test code = MCHC) 32.6 32.0-36.0 [facility] UptownGealsfzXZOPKTGTMJ5104-36-48 21:13:00 Test Item Value Reference Range Interpretation Comments RDW (test code = RDW) 15.5 11.5-14.5 [facility] UptownUoczujaUJHUVCCRDX6822-06-32 21:13:00 Test Item Value Reference Range Interpretation Comments Platelet (test code = Platelet) 243 133-450 [facility] UptownHqqakfmTHULNEKMKE2346-20-21 21:13:00 Test Item Value Reference Range Interpretation Comments MPV (test code = MPV) 9.4 7.4-10.4 [facility] UptownQbynxknOLJKABSHSC1519-30-90 21:13:00 Test Item Value Reference Range Interpretation Comments Segs (test code = Segs) 56.1 45.0-75.0 [place] 842181-05-24 21:13:00 Test Item Value Reference Range Interpretation Comments Lymphocytes (test code = Lymphocytes) 32.2 20.0-40.0 [place] 842181-05-24 21:13:00 Test Item Value Reference Range Interpretation Comments Monocytes (test code = Monocytes) 9.1 2.0-12.0 [place] [address]-05-24 21:13:00 Test Item Value Reference Range Interpretation Comments Eosinophils (test code = 2.2 See_Comment [A utomated message] The Eosinophils) system which ge nerated this result tra nsmitted reference range : <=4.0. The reference r kat was not used to int erpret this result as normal/abnormal . [place] 842181-05-24 21:13:00 Test Item Value Reference Range Interpretation Comments Basophils (test code = 0.4 See_Comment [Aut omated message] The Basophils) system which ge nerated this result tra nsmitted reference range : <=1.0. The reference r kat was not used to int erpret this result as normal/abnormal . [place] 842181-05-24 21:13:00 Test Item Value Reference Range Interpretation Comments Neutrophils # (test code = Neutrophils 4.4 1.5-8.1 #) [place] 842181-05-24 21:13:00 Test Item Value Reference Range Interpretation Comments Lymphocytes # (test code = Lymphocytes 2.5 1.0-5.5 #) [place] 842181-05-24 21:13:00 Test Item Value Reference Range Interpretation Comments Monocytes # (test code 0.7 See_Comment [Aut omated message] The = Monocytes #) system which generated this result tra nsmitted reference range : <=0.8. The reference r kat was not used to int erpret this result as normal/abnormal . [place] [address]-05-24 21:13:00 Test Item Value Reference Range Interpretation Comments Eosinophils # (test code 0.2 See_Comment [A utomated message] The = Eosinophils #) system whic h generated this result tra nsmitted reference range : <=0.5. The reference r kat was not used to int erpret this result as normal/abnormal . [place] 842181-05-24 21:13:00 Test Item Value Reference Range Interpretation Comments Microcyte (test code = 1+ *ABN*(01/20/21 Microcyte) 4:13 PM) [place] 136721-05-24 21:13:00 Test Item Value Reference Range Interpretation Comments Glucose Lvl (test code = Glucose Lvl) 89 70-99 [place] 136721-05-24 21:13:00 Test Item Value Reference Range Interpretation Comments BUN (test code = BUN) 8 7-22 [place] 136721-05-24 21:13:00 Test Item Value Reference Range Interpretation Comments Creatinine Lvl (test code = Creatinine 0.55 0.50-1.40 Lvl) [place] [address]-05-24 21:13:00 Test Item Value Reference Range Interpretation Comments Sodium Lvl (test code = Sodium Lvl) 140 135-145 [place] 136721-05-24 21:13:00 Test Item Value Reference Range Interpretation Comments Potassium Lvl (test code = Potassium 3.5 3.5-5.1 Lvl) [place] 136721-05-24 21:13:00 Test Item Value Reference Range Interpretation Comments Chloride Lvl (test code = Chloride Lvl) 109 95-109 [place] 136721-05-24 21:13:00 Test Item Value Reference Range Interpretation Comments CO2 (test code = CO2) 27 24-32 [place] 136721-05-24 21:13:00 Test Item Value Reference Range Interpretation Comments Calcium Lvl (test code = Calcium Lvl) 9.0 8.5-10.5 [place] 136721-05-24 21:13:00 Test Item Value Reference Range Interpretation Comments AGAP (test code = AGAP) 7.5 10.0-20.0 [place] 136721-05-24 21:13:00 Test Item Value Reference Range Interpretation Comments eGFR (test code = eGFR) 126 [place] 136721-05-24 21:13:00 Test Item Value Reference Range Interpretation Comments Lactic Acid Lvl (test code = Lactic 0.6 0.5-2.2 Acid Lvl) [facility] CenterQgsqisyOZGPVKJGGKMNT0063-99-54 21:13:00 Test Item Value Reference Range Interpretation Comments hCG Tot (test code = hCG Tot) no gt [facility] UptownXytelcfPYAGRMHAXL9320-08-66 21:13:00 Test Item Value Reference Range Interpretation Comments WBC X 10x3 (test code = WBC X 10x3) 7.9 3.7-10.4 [facility] UptownNooixfwCJLOLHUXKO7444-65-46 21:13:00 Test Item Value Reference Range Interpretation Comments RBC X 10x6 (test code = RBC X 10x6) 4.80 4.20-5.40 [facility] UptownPddwwecTQRHGNQWYA4295-63-26 21:13:00 Test Item Value Reference Range Interpretation Comments Hgb (test code = Hgb) 12.4 12.0-16.0 [facility] UptownYlftbcdOGSBDSYKZW0299-50-45 21:13:00 Test Item Value Reference Range Interpretation Comments Hct (test code = Hct) 37.9 36.0-48.0 [facility] UptownVbgujuvNOTKDFMJDI9175-20-73 21:13:00 Test Item Value Reference Range Interpretation Comments MCV (test code = MCV) 78.9 80.0-98.0 [facility] UptownVmwpsdlUKFZGKRETX8544-03-12 21:13:00 Test Item Value Reference Range Interpretation Comments MCH (test code = MCH) 25.7 pg 27.0-31.0 [facility] UptownJcgcvefRAUFMDUINZ6991-82-99 21:13:00 Test Item Value Reference Range Interpretation Comments MCHC (test code = MCHC) 32.6 32.0-36.0 [facility] UptownVlsoautFLDPJINJKJ1278-24-26 21:13:00 Test Item Value Reference Range Interpretation Comments RDW (test code = RDW) 15.5 11.5-14.5 [facility] UptownNvyrxcaGVVBFPYDSZ3022-88-68 21:13:00 Test Item Value Reference Range Interpretation Comments Platelet (test code = Platelet) 243 133-450 [facility] UptownGerscmlWUFEQSQOWG9240-02-43 21:13:00 Test Item Value Reference Range Interpretation Comments MPV (test code = MPV) 9.4 7.4-10.4 [facility] UptownTqrjwciRRZSQZYIWS3859-57-40 21:13:00 Test Item Value Reference Range Interpretation Comments Segs (test code = Segs) 56.1 45.0-75.0 [place] 842181-05-24 21:13:00 Test Item Value Reference Range Interpretation Comments Lymphocytes (test code = Lymphocytes) 32.2 20.0-40.0 [place] 842181-05-24 21:13:00 Test Item Value Reference Range Interpretation Comments Monocytes (test code = Monocytes) 9.1 2.0-12.0 [place] 842181-05-24 21:13:00 Test Item Value Reference Range Interpretation Comments Eosinophils (test code = 2.2 See_Comment [A utomated message] The Eosinophils) system which ge nerated this result tra nsmitted reference range : <=4.0. The reference r kat was not used to int erpret this result as normal/abnormal . [place] [address]-05-24 21:13:00 Test Item Value Reference Range Interpretation Comments Basophils (test code = 0.4 See_Comment [Aut omated message] The Basophils) system which ge nerated this result tra nsmitted reference range : <=1.0. The reference r kat was not used to int erpret this result as normal/abnormal . [facility] UptownKesoxlvKPSXAXQNXP3281-69-18 21:13:00 Test Item Value Reference Range Interpretation Comments Neutrophils # (test code = Neutrophils 4.4 1.5-8.1 #) [place] 842181-05-24 21:13:00 Test Item Value Reference Range Interpretation Comments Lymphocytes # (test code = Lymphocytes 2.5 1.0-5.5 #) [place] 842181-05-24 21:13:00 Test Item Value Reference Range Interpretation Comments Monocytes # (test code 0.7 See_Comment [Aut omated message] The = Monocytes #) system which generated this result tra nsmitted reference range : <=0.8. The reference r kat was not used to int erpret this result as normal/abnormal . [place] 842181-05-24 21:13:00 Test Item Value Reference Range Interpretation Comments Eosinophils # (test code 0.2 See_Comment [A utomated message] The = Eosinophils #) system whic h generated this result tra nsmitted reference range : <=0.5. The reference r kat was not used to int erpret this result as normal/abnormal . [place] 842181-05-24 21:13:00 Test Item Value Reference Range Interpretation Comments Microcyte (test code = 1+ *ABN*(01/20/21 Microcyte) 4:13 PM) [place] 136721-05-24 21:13:00 Test Item Value Reference Range Interpretation Comments Glucose Lvl (test code = Glucose Lvl) 89 70-99 [place] 136721-05-24 21:13:00 Test Item Value Reference Range Interpretation Comments BUN (test code = BUN) 8 7-22 [facility]2021-05-24 21:13:00 Test Item Value Reference Range Interpretation Comments Creatinine Lvl (test code = Creatinine 0.55 0.50-1.40 Lvl) [place] 136721-05-24 21:13:00 Test Item Value Reference Range Interpretation Comments Sodium Lvl (test code = Sodium Lvl) 140 135-145 [facility]2021-05-24 21:13:00 Test Item Value Reference Range Interpretation Comments Potassium Lvl (test code = Potassium 3.5 3.5-5.1 Lvl) [facility]2021-05-24 21:13:00 Test Item Value Reference Range Interpretation Comments Chloride Lvl (test code = Chloride Lvl) 109 95-109 [facility]2021-05-24 21:13:00 Test Item Value Reference Range Interpretation Comments CO2 (test code = CO2) 27 24-32 [place] 136721-05-24 21:13:00 Test Item Value Reference Range Interpretation Comments Calcium Lvl (test code = Calcium Lvl) 9.0 8.5-10.5 [place] 136721-05-24 21:13:00 Test Item Value Reference Range Interpretation Comments AGAP (test code = AGAP) 7.5 10.0-20.0 [facility]2021-05-24 21:13:00 Test Item Value Reference Range Interpretation Comments eGFR (test code = eGFR) 126 [facility]2021-05-24 21:13:00 Test Item Value Reference Range Interpretation Comments Lactic Acid Lvl (test code = Lactic 0.6 0.5-2.2 Acid Lvl) [facility] IrvingMdeuuwmCKAWJEIANSBDW1900-67-43 21:13:00 Test Item Value Reference Range Interpretation Comments hCG Tot (test code = hCG Tot) no gt [facility] UptownQptdobgPBIZOJGAIR6209-46-80 21:13:00 Test Item Value Reference Range Interpretation Comments WBC X 10x3 (test code = WBC X 10x3) 7.9 3.7-10.4 [facility] UptownDbkputbFBPLBXGGGV7549-81-65 21:13:00 Test Item Value Reference Range Interpretation Comments RBC X 10x6 (test code = RBC X 10x6) 4.80 4.20-5.40 [place] 842181-05-24 21:13:00 Test Item Value Reference Range Interpretation Comments Hgb (test code = Hgb) 12.4 12.0-16.0 [place] [address]-05-24 21:13:00 Test Item Value Reference Range Interpretation Comments Hct (test code = Hct) 37.9 36.0-48.0 [place] 842181-05-24 21:13:00 Test Item Value Reference Range Interpretation Comments MCV (test code = MCV) 78.9 80.0-98.0 [place] 842181-05-24 21:13:00 Test Item Value Reference Range Interpretation Comments MCH (test code = MCH) 25.7 pg 27.0-31.0 [facility] UptownXaipnvpNWKYDGGSLI3967-84-86 21:13:00 Test Item Value Reference Range Interpretation Comments MCHC (test code = MCHC) 32.6 32.0-36.0 [facility] UptownKlwrrshJVYYJHZKCN0248-61-29 21:13:00 Test Item Value Reference Range Interpretation Comments RDW (test code = RDW) 15.5 11.5-14.5 [place] 842181-05-24 21:13:00 Test Item Value Reference Range Interpretation Comments Platelet (test code = Platelet) 243 133-450 [facility] UptownRknqmnxXBLNDIEGDI0524-48-31 21:13:00 Test Item Value Reference Range Interpretation Comments MPV (test code = MPV) 9.4 7.4-10.4 [place] 842181-05-24 21:13:00 Test Item Value Reference Range Interpretation Comments Segs (test code = Segs) 56.1 45.0-75.0 [place] 842181-05-24 21:13:00 Test Item Value Reference Range Interpretation Comments Lymphocytes (test code = Lymphocytes) 32.2 20.0-40.0 [place] 842181-05-24 21:13:00 Test Item Value Reference Range Interpretation Comments Monocytes (test code = Monocytes) 9.1 2.0-12.0 [place] 842181-05-24 21:13:00 Test Item Value Reference Range Interpretation Comments Eosinophils (test code = 2.2 See_Comment [A utomated message] The Eosinophils) system which ge nerated this result tra nsmitted reference range : <=4.0. The reference r kat was not used to int erpret this result as normal/abnormal . [place] 842181-05-24 21:13:00 Test Item Value Reference Range Interpretation Comments Basophils (test code = 0.4 See_Comment [Aut omated message] The Basophils) system which ge nerated this result tra nsmitted reference range : <=1.0. The reference r kat was not used to int erpret this result as normal/abnormal . [place] 842181-05-24 21:13:00 Test Item Value Reference Range Interpretation Comments Neutrophils # (test code = Neutrophils 4.4 1.5-8.1 #) [place] 842181-05-24 21:13:00 Test Item Value Reference Range Interpretation Comments Lymphocytes # (test code = Lymphocytes 2.5 1.0-5.5 #) [place] 842181-05-24 21:13:00 Test Item Value Reference Range Interpretation Comments Monocytes # (test code 0.7 See_Comment [Aut omated message] The = Monocytes #) system which generated this result tra nsmitted reference range : <=0.8. The reference r kat was not used to int erpret this result as normal/abnormal . [place] 842181-05-24 21:13:00 Test Item Value Reference Range Interpretation Comments Eosinophils # (test code 0.2 See_Comment [A utomated message] The = Eosinophils #) system whic h generated this result tra nsmitted reference range : <=0.5. The reference r kat was not used to int erpret this result as normal/abnormal . [place] 842181-05-24 21:13:00 Test Item Value Reference Range Interpretation Comments Microcyte (test code = 1+ *ABN*(01/20/21 Microcyte) 4:13 PM) [facility]2021-05-24 21:13:00 Test Item Value Reference Range Interpretation Comments Glucose Lvl (test code = Glucose Lvl) 89 70-99 [place] 136721-05-24 21:13:00 Test Item Value Reference Range Interpretation Comments BUN (test code = BUN) 8 7-22 [place] 136721-05-24 21:13:00 Test Item Value Reference Range Interpretation Comments Creatinine Lvl (test code = Creatinine 0.55 0.50-1.40 Lvl) [facility]2021-05-24 21:13:00 Test Item Value Reference Range Interpretation Comments Sodium Lvl (test code = Sodium Lvl) 140 135-145 [facility]2021-05-24 21:13:00 Test Item Value Reference Range Interpretation Comments Potassium Lvl (test code = Potassium 3.5 3.5-5.1 Lvl) [facility]2021-05-24 21:13:00 Test Item Value Reference Range Interpretation Comments Chloride Lvl (test code = Chloride Lvl) 109 95-109 [facility]2021-05-24 21:13:00 Test Item Value Reference Range Interpretation Comments CO2 (test code = CO2) 27 24-32 [facility]2021-05-24 21:13:00 Test Item Value Reference Range Interpretation Comments Calcium Lvl (test code = Calcium Lvl) 9.0 8.5-10.5 [facility]2021-05-24 21:13:00 Test Item Value Reference Range Interpretation Comments AGAP (test code = AGAP) 7.5 10.0-20.0 [facility]2021-05-24 21:13:00 Test Item Value Reference Range Interpretation Comments eGFR (test code = eGFR) 126 [facility]2021-05-24 21:13:00 Test Item Value Reference Range Interpretation Comments Lactic Acid Lvl (test code = Lactic 0.6 0.5-2.2 Acid Lvl) [facility] IrvingQtryoqyQEAUBFUZIZDAC7033-49-30 21:13:00 Test Item Value Reference Range Interpretation Comments hCG Tot (test code = hCG Tot) no gt [facility]ObinetrBCQZWYGRMS1570-67-87 21:13:00 Test Item Value Reference Range Interpretation Comments WBC X 10x3 (test code = WBC X 10x3) 7.9 3.7-10.4 [facility] UptownYhrztnmVZLCKOFLME5437-28-61 21:13:00 Test Item Value Reference Range Interpretation Comments RBC X 10x6 (test code = RBC X 10x6) 4.80 4.20-5.40 [facility] UptownFdlrdgxMICZVOUZIW5302-17-50 21:13:00 Test Item Value Reference Range Interpretation Comments Hgb (test code = Hgb) 12.4 12.0-16.0 [facility] UptownGgleyleLAXXJXIERN1677-71-43 21:13:00 Test Item Value Reference Range Interpretation Comments Hct (test code = Hct) 37.9 36.0-48.0 [facility] UptownYyptvmlKNRXQAJGYH8037-99-44 21:13:00 Test Item Value Reference Range Interpretation Comments MCV (test code = MCV) 78.9 80.0-98.0 [facility] UptownPdfmaauPOKUXLHLEF4421-81-56 21:13:00 Test Item Value Reference Range Interpretation Comments MCH (test code = MCH) 25.7 pg 27.0-31.0 [facility] UptownFozemzoDHMTALZKWC2911-13-51 21:13:00 Test Item Value Reference Range Interpretation Comments MCHC (test code = MCHC) 32.6 32.0-36.0 [facility] UptownGgvijsmNROCIDYRGF1207-58-16 21:13:00 Test Item Value Reference Range Interpretation Comments RDW (test code = RDW) 15.5 11.5-14.5 [facility] UptownKlrmdhmIQPPOYLLKL4215-56-31 21:13:00 Test Item Value Reference Range Interpretation Comments Platelet (test code = Platelet) 243 133-450 [facility] UptownPbodfbqBVETZKKSKC2578-74-54 21:13:00 Test Item Value Reference Range Interpretation Comments MPV (test code = MPV) 9.4 7.4-10.4 [facility] UptownEcjmqmjIYIBWYEWSP8800-88-56 21:13:00 Test Item Value Reference Range Interpretation Comments Segs (test code = Segs) 56.1 45.0-75.0 [facility] UptownWvojqfbRAKGMSUMAU4118-16-51 21:13:00 Test Item Value Reference Range Interpretation Comments Lymphocytes (test code = Lymphocytes) 32.2 20.0-40.0 [facility] UptownPqopbowHNCOUNMOLW0026-68-47 21:13:00 Test Item Value Reference Range Interpretation Comments Monocytes (test code = Monocytes) 9.1 2.0-12.0 [place] 842181-05-24 21:13:00 Test Item Value Reference Range Interpretation Comments Eosinophils (test code = 2.2 See_Comment [A utomated message] The Eosinophils) system which ge nerated this result tra nsmitted reference range : <=4.0. The reference r kat was not used to int erpret this result as normal/abnormal . [place] 842181-05-24 21:13:00 Test Item Value Reference Range Interpretation Comments Basophils (test code = 0.4 See_Comment [Aut omated message] The Basophils) system which ge nerated this result tra nsmitted reference range : <=1.0. The reference r kat was not used to int erpret this result as normal/abnormal . [id number] 21:13:00 Test Item Value Reference Range Interpretation Comments Neutrophils # (test code = Neutrophils 4.4 1.5-8.1 #) [place] 842181-05-24 21:13:00 Test Item Value Reference Range Interpretation Comments Lymphocytes # (test code = Lymphocytes 2.5 1.0-5.5 #) [place] 842181-05-24 21:13:00 Test Item Value Reference Range Interpretation Comments Monocytes # (test code 0.7 See_Comment [Aut omated message] The = Monocytes #) system which generated this result tra nsmitted reference range : <=0.8. The reference r kat was not used to int erpret this result as normal/abnormal . [place] 842181-05-24 21:13:00 Test Item Value Reference Range Interpretation Comments Eosinophils # (test code 0.2 See_Comment [A utomated message] The = Eosinophils #) system whic h generated this result tra nsmitted reference range : <=0.5. The reference r kat was not used to int erpret this result as normal/abnormal . [place] 842181-05-24 21:13:00 Test Item Value Reference Range Interpretation Comments Microcyte (test code = 1+ *ABN*(01/20/21 Microcyte) 4:13 PM) [facility]2021-05-24 21:13:00 Test Item Value Reference Range Interpretation Comments Glucose Lvl (test code = Glucose Lvl) 89 70-99 [facility]2021-05-24 21:13:00 Test Item Value Reference Range Interpretation Comments BUN (test code = BUN) 8 7-22 [place] 136721-05-24 21:13:00 Test Item Value Reference Range Interpretation Comments Creatinine Lvl (test code = Creatinine 0.55 0.50-1.40 Lvl) [place] 136721-05-24 21:13:00 Test Item Value Reference Range Interpretation Comments Sodium Lvl (test code = Sodium Lvl) 140 135-145 [place] 136721-05-24 21:13:00 Test Item Value Reference Range Interpretation Comments Potassium Lvl (test code = Potassium 3.5 3.5-5.1 Lvl) [facility]2021-05-24 21:13:00 Test Item Value Reference Range Interpretation Comments Chloride Lvl (test code = Chloride Lvl) 109 95-109 [facility]2021-05-24 21:13:00 Test Item Value Reference Range Interpretation Comments CO2 (test code = CO2) 27 24-32 [place] 136721-05-24 21:13:00 Test Item Value Reference Range Interpretation Comments Calcium Lvl (test code = Calcium Lvl) 9.0 8.5-10.5 [facility]2021-05-24 21:13:00 Test Item Value Reference Range Interpretation Comments AGAP (test code = AGAP) 7.5 10.0-20.0 [facility]2021-05-24 21:13:00 Test Item Value Reference Range Interpretation Comments eGFR (test code = eGFR) 126 [facility]2021-05-24 21:13:00 Test Item Value Reference Range Interpretation Comments Lactic Acid Lvl (test code = Lactic 0.6 0.5-2.2 Acid Lvl) [id number] 21:13:00 Test Item Value Reference Range Interpretation Comments hCG Tot (test code = hCG Tot) no gt [facility]ownUuozqraLCTJVHZAHL1856-47-24 21:13:00 Test Item Value Reference Range Interpretation Comments WBC X 10x3 (test code = WBC X 10x3) 7.9 3.7-10.4 [facility]ownMdgyprrIQZSKJKEQQ0024-29-45 21:13:00 Test Item Value Reference Range Interpretation Comments RBC X 10x6 (test code = RBC X 10x6) 4.80 4.20-5.40 [place] 842181-05-24 21:13:00 Test Item Value Reference Range Interpretation Comments Hgb (test code = Hgb) 12.4 12.0-16.0 [place] 842181-05-24 21:13:00 Test Item Value Reference Range Interpretation Comments Hct (test code = Hct) 37.9 36.0-48.0 [facility]ownZnctegoXWMMDWZOMV4337-41-30 21:13:00 Test Item Value Reference Range Interpretation Comments MCV (test code = MCV) 78.9 80.0-98.0 [place] 842181-05-24 21:13:00 Test Item Value Reference Range Interpretation Comments MCH (test code = MCH) 25.7 pg 27.0-31.0 [place] [address]-05-24 21:13:00 Test Item Value Reference Range Interpretation Comments MCHC (test code = MCHC) 32.6 32.0-36.0 [facility]ownQpndlrfDZKEYBQPOQ0825-04-74 21:13:00 Test Item Value Reference Range Interpretation Comments RDW (test code = RDW) 15.5 11.5-14.5 [facility]ownPzyvdepZTTTXWWLXH6175-17-05 21:13:00 Test Item Value Reference Range Interpretation Comments Platelet (test code = Platelet) 243 133-450 [facility] UptownSnvlzadMXIFKYAUAW8901-23-55 21:13:00 Test Item Value Reference Range Interpretation Comments MPV (test code = MPV) 9.4 7.4-10.4 [place] 842181-05-24 21:13:00 Test Item Value Reference Range Interpretation Comments Segs (test code = Segs) 56.1 45.0-75.0 [place] [address]-05-24 21:13:00 Test Item Value Reference Range Interpretation Comments Lymphocytes (test code = Lymphocytes) 32.2 20.0-40.0 [place] [address]-05-24 21:13:00 Test Item Value Reference Range Interpretation Comments Monocytes (test code = Monocytes) 9.1 2.0-12.0 [place] [address]-05-24 21:13:00 Test Item Value Reference Range Interpretation Comments Eosinophils (test code = 2.2 See_Comment [A utomated message] The Eosinophils) system which ge nerated this result tra nsmitted reference range : <=4.0. The reference r kat was not used to int erpret this result as normal/abnormal . [place] 842181-05-24 21:13:00 Test Item Value Reference Range Interpretation Comments Basophils (test code = 0.4 See_Comment [Aut omated message] The Basophils) system which ge nerated this result tra nsmitted reference range : <=1.0. The reference r kat was not used to int erpret this result as normal/abnormal . [place] 842181-05-24 21:13:00 Test Item Value Reference Range Interpretation Comments Neutrophils # (test code = Neutrophils 4.4 1.5-8.1 #) [place] 842181-05-24 21:13:00 Test Item Value Reference Range Interpretation Comments Lymphocytes # (test code = Lymphocytes 2.5 1.0-5.5 #) [place] 842181-05-24 21:13:00 Test Item Value Reference Range Interpretation Comments Monocytes # (test code 0.7 See_Comment [Aut omated message] The = Monocytes #) system which generated this result tra nsmitted reference range : <=0.8. The reference r kat was not used to int erpret this result as normal/abnormal . [place]42181-05-24 21:13:00 Test Item Value Reference Range Interpretation Comments Eosinophils # (test code 0.2 See_Comment [A utomated message] The = Eosinophils #) system whic h generated this result tra nsmitted reference range : <=0.5. The reference r kat was not used to int erpret this result as normal/abnormal . [place] 842181-05-24 21:13:00 Test Item Value Reference Range Interpretation Comments Microcyte (test code = 1+ *ABN*(01/20/21 Microcyte) 4:13 PM) [id number] 21:13:00 Test Item Value Reference Range Interpretation Comments Glucose Lvl (test code = Glucose Lvl) 89 70-99 [facility] [id number] 21:13:00 Test Item Value Reference Range Interpretation Comments BUN (test code = BUN) 8 7-22 [facility]2021-05-24 21:13:00 Test Item Value Reference Range Interpretation Comments Creatinine Lvl (test code = Creatinine 0.55 0.50-1.40 Lvl) [facility]2021-05-24 21:13:00 Test Item Value Reference Range Interpretation Comments Sodium Lvl (test code = Sodium Lvl) 140 135-145 [place] 136721-05-24 21:13:00 Test Item Value Reference Range Interpretation Comments Potassium Lvl (test code = Potassium 3.5 3.5-5.1 Lvl) [place] 136721-05-24 21:13:00 Test Item Value Reference Range Interpretation Comments Chloride Lvl (test code = Chloride Lvl) 109 95-109 [facility]2021-05-24 21:13:00 Test Item Value Reference Range Interpretation Comments CO2 (test code = CO2) 27 24-32 [place] 136721-05-24 21:13:00 Test Item Value Reference Range Interpretation Comments Calcium Lvl (test code = Calcium Lvl) 9.0 8.5-10.5 [facility]2021-05-24 21:13:00 Test Item Value Reference Range Interpretation Comments AGAP (test code = AGAP) 7.5 10.0-20.0 [facility]2021-05-24 21:13:00 Test Item Value Reference Range Interpretation Comments eGFR (test code = eGFR) 126 [facility]2021-05-24 21:13:00 Test Item Value Reference Range Interpretation Comments Lactic Acid Lvl (test code = Lactic 0.6 0.5-2.2 Acid Lvl) [place] 39844021-05-24 21:13:00 Test Item Value Reference Range Interpretation Comments hCG Tot (test code = hCG Tot) no gt [facility]ownNtddcvnUEISBDWLOE7346-70-48 21:13:00 Test Item Value Reference Range Interpretation Comments WBC X 10x3 (test code = WBC X 10x3) 7.9 3.7-10.4 [place]42181-05-24 21:13:00 Test Item Value Reference Range Interpretation Comments RBC X 10x6 (test code = RBC X 10x6) 4.80 4.20-5.40 [place]42181-05-24 21:13:00 Test Item Value Reference Range Interpretation Comments Hgb (test code = Hgb) 12.4 12.0-16.0 [place]42181-05-24 21:13:00 Test Item Value Reference Range Interpretation Comments Hct (test code = Hct) 37.9 36.0-48.0 [place]42181-05-24 21:13:00 Test Item Value Reference Range Interpretation Comments MCV (test code = MCV) 78.9 80.0-98.0 [place]42181-05-24 21:13:00 Test Item Value Reference Range Interpretation Comments MCH (test code = MCH) 25.7 pg 27.0-31.0 [place] 842181-05-24 21:13:00 Test Item Value Reference Range Interpretation Comments MCHC (test code = MCHC) 32.6 32.0-36.0 [place] 842181-05-24 21:13:00 Test Item Value Reference Range Interpretation Comments RDW (test code = RDW) 15.5 11.5-14.5 [place] 842181-05-24 21:13:00 Test Item Value Reference Range Interpretation Comments Platelet (test code = Platelet) 243 133-450 [facility] UptownXzvugdiOYDNWAGSYQ9230-25-47 21:13:00 Test Item Value Reference Range Interpretation Comments MPV (test code = MPV) 9.4 7.4-10.4 [place]42181-05-24 21:13:00 Test Item Value Reference Range Interpretation Comments Segs (test code = Segs) 56.1 45.0-75.0 [place]42181-05-24 21:13:00 Test Item Value Reference Range Interpretation Comments Lymphocytes (test code = Lymphocytes) 32.2 20.0-40.0 [place] [address]-05-24 21:13:00 Test Item Value Reference Range Interpretation Comments Monocytes (test code = Monocytes) 9.1 2.0-12.0 [place] [address]-05-24 21:13:00 Test Item Value Reference Range Interpretation Comments Eosinophils (test code = 2.2 See_Comment [A utomated message] The Eosinophils) system which ge nerated this result tra nsmitted reference range : <=4.0. The reference r kat was not used to int erpret this result as normal/abnormal . [place] 842181-05-24 21:13:00 Test Item Value Reference Range Interpretation Comments Basophils (test code = 0.4 See_Comment [Aut omated message] The Basophils) system which ge nerated this result tra nsmitted reference range : <=1.0. The reference r kat was not used to int erpret this result as normal/abnormal . [place]42181-05-24 21:13:00 Test Item Value Reference Range Interpretation Comments Neutrophils # (test code = Neutrophils 4.4 1.5-8.1 #) [place] 842181-05-24 21:13:00 Test Item Value Reference Range Interpretation Comments Lymphocytes # (test code = Lymphocytes 2.5 1.0-5.5 #) [place]42181-05-24 21:13:00 Test Item Value Reference Range Interpretation Comments Monocytes # (test code 0.7 See_Comment [Aut omated message] The = Monocytes #) system which generated this result tra nsmitted reference range : <=0.8. The reference r kat was not used to int erpret this result as normal/abnormal . [place]42181-05-24 21:13:00 Test Item Value Reference Range Interpretation Comments Eosinophils # (test code 0.2 See_Comment [A utomated message] The = Eosinophils #) system whic h generated this result tra nsmitted reference range : <=0.5. The reference r kat was not used to int erpret this result as normal/abnormal . [place]42181-05-24 21:13:00 Test Item Value Reference Range Interpretation Comments Microcyte (test code = 1+ *ABN*(01/20/21 Microcyte) 4:13 PM) [place] 136721-05-24 21:13:00 Test Item Value Reference Range Interpretation Comments Glucose Lvl (test code = Glucose Lvl) 89 70-99 [place] 136721-05-24 21:13:00 Test Item Value Reference Range Interpretation Comments BUN (test code = BUN) 8 7-22 [place] 136721-05-24 21:13:00 Test Item Value Reference Range Interpretation Comments Creatinine Lvl (test code = Creatinine 0.55 0.50-1.40 Lvl) [facility]2021-05-24 21:13:00 Test Item Value Reference Range Interpretation Comments Sodium Lvl (test code = Sodium Lvl) 140 135-145 [place] 136721-05-24 21:13:00 Test Item Value Reference Range Interpretation Comments Potassium Lvl (test code = Potassium 3.5 3.5-5.1 Lvl) [place] 136721-05-24 21:13:00 Test Item Value Reference Range Interpretation Comments Chloride Lvl (test code = Chloride Lvl) 109 95-109 [place] 136721-05-24 21:13:00 Test Item Value Reference Range Interpretation Comments CO2 (test code = CO2) 27 24-32 [place] 136721-05-24 21:13:00 Test Item Value Reference Range Interpretation Comments Calcium Lvl (test code = Calcium Lvl) 9.0 8.5-10.5 [place] 136721-05-24 21:13:00 Test Item Value Reference Range Interpretation Comments AGAP (test code = AGAP) 7.5 10.0-20.0 [facility]2021-05-24 21:13:00 Test Item Value Reference Range Interpretation Comments eGFR (test code = eGFR) 126 [facility]2021-05-24 21:13:00 Test Item Value Reference Range Interpretation Comments Lactic Acid Lvl (test code = Lactic 0.6 0.5-2.2 Acid Lvl) [facility] Ir[id number] 21:13:00 Test Item Value Reference Range Interpretation Comments hCG Tot (test code = hCG Tot) no gt [facility]ptownVgxlmpaQXKIVAXDJF3205-12-76 21:13:00 Test Item Value Reference Range Interpretation Comments WBC X 10x3 (test code = WBC X 10x3) 7.9 3.7-10.4 [place]42181-05-24 21:13:00 Test Item Value Reference Range Interpretation Comments RBC X 10x6 (test code = RBC X 10x6) 4.80 4.20-5.40 [place]42181-05-24 21:13:00 Test Item Value Reference Range Interpretation Comments Hgb (test code = Hgb) 12.4 12.0-16.0 [facility] UptownZomiwxaMFVEBMAEGP4091-93-15 21:13:00 Test Item Value Reference Range Interpretation Comments Hct (test code = Hct) 37.9 36.0-48.0 [facility]ownOwjlbpxGJQKGYZVGD0891-21-61 21:13:00 Test Item Value Reference Range Interpretation Comments MCV (test code = MCV) 78.9 80.0-98.0 [facility] UptownBhpsrziXHMOSMNMXG8872-59-23 21:13:00 Test Item Value Reference Range Interpretation Comments MCH (test code = MCH) 25.7 pg 27.0-31.0 [facility] UptownZsyuxvyYVUIVTMZFG3628-74-58 21:13:00 Test Item Value Reference Range Interpretation Comments MCHC (test code = MCHC) 32.6 32.0-36.0 [facility] UptownTxowtosKOEEGTFMEH6642-45-34 21:13:00 Test Item Value Reference Range Interpretation Comments RDW (test code = RDW) 15.5 11.5-14.5 [facility] UptownCrjjxznJXUKUUZFTR2575-47-39 21:13:00 Test Item Value Reference Range Interpretation Comments Platelet (test code = Platelet) 243 133-450 [facility] UptownWwxshefLBTKMGQOGR5690-30-90 21:13:00 Test Item Value Reference Range Interpretation Comments MPV (test code = MPV) 9.4 7.4-10.4 [facility] UptownOdkadxwZVDZWOLUSC4487-85-69 21:13:00 Test Item Value Reference Range Interpretation Comments Segs (test code = Segs) 56.1 45.0-75.0 [facility] UptownDpszoabNOAWHUXCZC0493-25-44 21:13:00 Test Item Value Reference Range Interpretation Comments Lymphocytes (test code = Lymphocytes) 32.2 20.0-40.0 [place] 842181-05-24 21:13:00 Test Item Value Reference Range Interpretation Comments Monocytes (test code = Monocytes) 9.1 2.0-12.0 [place] 842181-05-24 21:13:00 Test Item Value Reference Range Interpretation Comments Eosinophils (test code = 2.2 See_Comment [A utomated message] The Eosinophils) system which ge nerated this result tra nsmitted reference range : <=4.0. The reference r kat was not used to int erpret this result as normal/abnormal . [place] [address]-05-24 21:13:00 Test Item Value Reference Range Interpretation Comments Basophils (test code = 0.4 See_Comment [Aut omated message] The Basophils) system which ge nerated this result tra nsmitted reference range : <=1.0. The reference r kat was not used to int erpret this result as normal/abnormal . [place]42181-05-24 21:13:00 Test Item Value Reference Range Interpretation Comments Neutrophils # (test code = Neutrophils 4.4 1.5-8.1 #) [place] [address]-05-24 21:13:00 Test Item Value Reference Range Interpretation Comments Lymphocytes # (test code = Lymphocytes 2.5 1.0-5.5 #) [place] [address]-05-24 21:13:00 Test Item Value Reference Range Interpretation Comments Monocytes # (test code 0.7 See_Comment [Aut omated message] The = Monocytes #) system which generated this result tra nsmitted reference range : <=0.8. The reference r kat was not used to int erpret this result as normal/abnormal . [place] [address]-05-24 21:13:00 Test Item Value Reference Range Interpretation Comments Eosinophils # (test code 0.2 See_Comment [A utomated message] The = Eosinophils #) system whic h generated this result tra nsmitted reference range : <=0.5. The reference r kat was not used to int erpret this result as normal/abnormal . [place]42181-05-24 21:13:00 Test Item Value Reference Range Interpretation Comments Microcyte (test code = 1+ *ABN*(01/20/21 Microcyte) 4:13 PM) [place] [address]-05-24 21:13:00 Test Item Value Reference Range Interpretation Comments Glucose Lvl (test code = Glucose Lvl) 89 70-99 [place] 136721-05-24 21:13:00 Test Item Value Reference Range Interpretation Comments BUN (test code = BUN) 8 7-22 [place] 136721-05-24 21:13:00 Test Item Value Reference Range Interpretation Comments Creatinine Lvl (test code = Creatinine 0.55 0.50-1.40 Lvl) [place] 136721-05-24 21:13:00 Test Item Value Reference Range Interpretation Comments Sodium Lvl (test code = Sodium Lvl) 140 135-145 [place] 136721-05-24 21:13:00 Test Item Value Reference Range Interpretation Comments Potassium Lvl (test code = Potassium 3.5 3.5-5.1 Lvl) [place] 136721-05-24 21:13:00 Test Item Value Reference Range Interpretation Comments Chloride Lvl (test code = Chloride Lvl) 109 95-109 [place] 136721-05-24 21:13:00 Test Item Value Reference Range Interpretation Comments CO2 (test code = CO2) 27 24-32 [place] 136721-05-24 21:13:00 Test Item Value Reference Range Interpretation Comments Calcium Lvl (test code = Calcium Lvl) 9.0 8.5-10.5 [place] 136721-05-24 21:13:00 Test Item Value Reference Range Interpretation Comments AGAP (test code = AGAP) 7.5 10.0-20.0 [place] 136721-05-24 21:13:00 Test Item Value Reference Range Interpretation Comments eGFR (test code = eGFR) 126 [place] 136721-05-24 21:13:00 Test Item Value Reference Range Interpretation Comments Lactic Acid Lvl (test code = Lactic 0.6 0.5-2.2 Acid Lvl) [place] 39844021-05-24 21:13:00 Test Item Value Reference Range Interpretation Comments hCG Tot (test code = hCG Tot) no gt [place] 842181-05-24 21:13:00 Test Item Value Reference Range Interpretation Comments WBC X 10x3 (test code = WBC X 10x3) 7.9 3.7-10.4 [place] [address]-05-24 21:13:00 Test Item Value Reference Range Interpretation Comments RBC X 10x6 (test code = RBC X 10x6) 4.80 4.20-5.40 [place] 842181-05-24 21:13:00 Test Item Value Reference Range Interpretation Comments Hgb (test code = Hgb) 12.4 12.0-16.0 [place]42181-05-24 21:13:00 Test Item Value Reference Range Interpretation Comments Hct (test code = Hct) 37.9 36.0-48.0 [place] [address]-05-24 21:13:00 Test Item Value Reference Range Interpretation Comments MCV (test code = MCV) 78.9 80.0-98.0 [place] [address]-05-24 21:13:00 Test Item Value Reference Range Interpretation Comments MCH (test code = MCH) 25.7 pg 27.0-31.0 [place] [address]-05-24 21:13:00 Test Item Value Reference Range Interpretation Comments MCHC (test code = MCHC) 32.6 32.0-36.0 [place] [address]-05-24 21:13:00 Test Item Value Reference Range Interpretation Comments RDW (test code = RDW) 15.5 11.5-14.5 [place] [address]-05-24 21:13:00 Test Item Value Reference Range Interpretation Comments Platelet (test code = Platelet) 243 133-450 [place] 842181-05-24 21:13:00 Test Item Value Reference Range Interpretation Comments MPV (test code = MPV) 9.4 7.4-10.4 [place] [address]-05-24 21:13:00 Test Item Value Reference Range Interpretation Comments Segs (test code = Segs) 56.1 45.0-75.0 [place] [address]-05-24 21:13:00 Test Item Value Reference Range Interpretation Comments Lymphocytes (test code = Lymphocytes) 32.2 20.0-40.0 [place] [address]-05-24 21:13:00 Test Item Value Reference Range Interpretation Comments Monocytes (test code = Monocytes) 9.1 2.0-12.0 [place] [address]-05-24 21:13:00 Test Item Value Reference Range Interpretation Comments Eosinophils (test code = 2.2 See_Comment [A utomated message] The Eosinophils) system which ge nerated this result tra nsmitted reference range : <=4.0. The reference r kat was not used to int erpret this result as normal/abnormal . [place] [address]-05-24 21:13:00 Test Item Value Reference Range Interpretation Comments Basophils (test code = 0.4 See_Comment [Aut omated message] The Basophils) system which ge nerated this result tra nsmitted reference range : <=1.0. The reference r kat was not used to int erpret this result as normal/abnormal . [place]42181-05-24 21:13:00 Test Item Value Reference Range Interpretation Comments Neutrophils # (test code = Neutrophils 4.4 1.5-8.1 #) [place]42181-05-24 21:13:00 Test Item Value Reference Range Interpretation Comments Lymphocytes # (test code = Lymphocytes 2.5 1.0-5.5 #) [place]42181-05-24 21:13:00 Test Item Value Reference Range Interpretation Comments Monocytes # (test code 0.7 See_Comment [Aut omated message] The = Monocytes #) system which generated this result tra nsmitted reference range : <=0.8. The reference r kat was not used to int erpret this result as normal/abnormal . [place]42181-05-24 21:13:00 Test Item Value Reference Range Interpretation Comments Eosinophils # (test code 0.2 See_Comment [A utomated message] The = Eosinophils #) system whic h generated this result tra nsmitted reference range : <=0.5. The reference r akt was not used to int erpret this result as normal/abnormal . [facility]ownDsqvjfnYRYIEISOZV7611-05-71 21:13:00 Test Item Value Reference Range Interpretation Comments Microcyte (test code = 1+ *ABN*(01/20/21 Microcyte) 4:13 PM) [place] 136721-05-24 21:13:00 Test Item Value Reference Range Interpretation Comments Glucose Lvl (test code = Glucose Lvl) 89 70-99 [place] 136721-05-24 21:13:00 Test Item Value Reference Range Interpretation Comments BUN (test code = BUN) 8 7-22 [place] 136721-05-24 21:13:00 Test Item Value Reference Range Interpretation Comments Creatinine Lvl (test code = Creatinine 0.55 0.50-1.40 Lvl) [place] 136721-05-24 21:13:00 Test Item Value Reference Range Interpretation Comments Sodium Lvl (test code = Sodium Lvl) 140 135-145 [place] 136721-05-24 21:13:00 Test Item Value Reference Range Interpretation Comments Potassium Lvl (test code = Potassium 3.5 3.5-5.1 Lvl) [place] 136721-05-24 21:13:00 Test Item Value Reference Range Interpretation Comments Chloride Lvl (test code = Chloride Lvl) 109 95-109 [place] 136721-05-24 21:13:00 Test Item Value Reference Range Interpretation Comments CO2 (test code = CO2) 27 24-32 [place] 136721-05-24 21:13:00 Test Item Value Reference Range Interpretation Comments Calcium Lvl (test code = Calcium Lvl) 9.0 8.5-10.5 [place] 136721-05-24 21:13:00 Test Item Value Reference Range Interpretation Comments AGAP (test code = AGAP) 7.5 10.0-20.0 [place] 136721-05-24 21:13:00 Test Item Value Reference Range Interpretation Comments eGFR (test code = eGFR) 126 [place] 136721-05-24 21:13:00 Test Item Value Reference Range Interpretation Comments Lactic Acid Lvl (test code = Lactic 0.6 0.5-2.2 Acid Lvl) [facility]2873[facility] 21:13:00 Test Item Value Reference Range Interpretation Comments hCG Tot (test code = hCG Tot) no gt [place] 842181-05-24 21:13:00 Test Item Value Reference Range Interpretation Comments WBC X 10x3 (test code = WBC X 10x3) 7.9 3.7-10.4 [place] 842181-05-24 21:13:00 Test Item Value Reference Range Interpretation Comments RBC X 10x6 (test code = RBC X 10x6) 4.80 4.20-5.40 [place] [address]-05-24 21:13:00 Test Item Value Reference Range Interpretation Comments Hgb (test code = Hgb) 12.4 12.0-16.0 [place] [address]-05-24 21:13:00 Test Item Value Reference Range Interpretation Comments Hct (test code = Hct) 37.9 36.0-48.0 [place] 842181-05-24 21:13:00 Test Item Value Reference Range Interpretation Comments MCV (test code = MCV) 78.9 80.0-98.0 [place] 842181-05-24 21:13:00 Test Item Value Reference Range Interpretation Comments MCH (test code = MCH) 25.7 pg 27.0-31.0 [place] 842181-05-24 21:13:00 Test Item Value Reference Range Interpretation Comments MCHC (test code = MCHC) 32.6 32.0-36.0 [place] 842181-05-24 21:13:00 Test Item Value Reference Range Interpretation Comments RDW (test code = RDW) 15.5 11.5-14.5 [place] 842181-05-24 21:13:00 Test Item Value Reference Range Interpretation Comments Platelet (test code = Platelet) 243 133-450 [place] 842181-05-24 21:13:00 Test Item Value Reference Range Interpretation Comments MPV (test code = MPV) 9.4 7.4-10.4 [place] 842181-05-24 21:13:00 Test Item Value Reference Range Interpretation Comments Segs (test code = Segs) 56.1 45.0-75.0 [place] 842181-05-24 21:13:00 Test Item Value Reference Range Interpretation Comments Lymphocytes (test code = Lymphocytes) 32.2 20.0-40.0 [place] 842181-05-24 21:13:00 Test Item Value Reference Range Interpretation Comments Monocytes (test code = Monocytes) 9.1 2.0-12.0 [place] [address]-05-24 21:13:00 Test Item Value Reference Range Interpretation Comments Eosinophils (test code = 2.2 See_Comment [A utomated message] The Eosinophils) system which ge nerated this result tra nsmitted reference range : <=4.0. The reference r kat was not used to int erpret this result as normal/abnormal . [place] 842181-05-24 21:13:00 Test Item Value Reference Range Interpretation Comments Basophils (test code = 0.4 See_Comment [Aut omated message] The Basophils) system which ge nerated this result tra nsmitted reference range : <=1.0. The reference r kat was not used to int erpret this result as normal/abnormal . [facility]ownZmtdaovTPFETQHLYQ1232-89-37 21:13:00 Test Item Value Reference Range Interpretation Comments Neutrophils # (test code = Neutrophils 4.4 1.5-8.1 #) [facility]ptownEuktdrrJQYJYZQIGZ8429-77-55 21:13:00 Test Item Value Reference Range Interpretation Comments Lymphocytes # (test code = Lymphocytes 2.5 1.0-5.5 #) [place] 842181-05-24 21:13:00 Test Item Value Reference Range Interpretation Comments Monocytes # (test code 0.7 See_Comment [Aut omated message] The = Monocytes #) system which generated this result tra nsmitted reference range : <=0.8. The reference r kat was not used to int erpret this result as normal/abnormal . [place] 842181-05-24 21:13:00 Test Item Value Reference Range Interpretation Comments Eosinophils # (test code 0.2 See_Comment [A utomated message] The = Eosinophils #) system whic h generated this result tra nsmitted reference range : <=0.5. The reference r kat was not used to int erpret this result as normal/abnormal . [facility] UptownItenfiuBBMCPUSCOP9675-39-00 21:13:00 Test Item Value Reference Range Interpretation Comments Microcyte (test code = 1+ *ABN*(01/20/21 Microcyte) 4:13 PM) [facility]2016-01-21 13:03:00 Test Item Value Reference Range Interpretation Comments Magnesium Lvl (test code = Magnesium 1.9 1.8-2.4 Lvl) [facility]2016-01-21 13:03:00 Test Item Value Reference Range Interpretation Comments eGFR (test code = eGFR) 127 [facility]2016-01-21 13:03:00 Test Item Value Reference Range Interpretation Comments Creatinine Lvl (test code = Creatinine 0.60 0.50-1.40 Lvl) [facility]2016-01-21 13:03:00 Test Item Value Reference Range Interpretation Comments Glucose Lvl (test code = Glucose Lvl) 82 70-99 [facility]2016-01-21 13:03:00 Test Item Value Reference Range Interpretation Comments BUN (test code = BUN) 7 7-22 [facility]2016-01-21 13:03:00 Test Item Value Reference Range Interpretation Comments Potassium Lvl (test code = Potassium 4.1 3.5-5.1 Lvl) [facility]2016-01-21 13:03:00 Test Item Value Reference Range Interpretation Comments Sodium Lvl (test code = Sodium Lvl) 141 135-145 [facility]2016-01-21 13:03:00 Test Item Value Reference Range Interpretation Comments Chloride Lvl (test code = Chloride Lvl) 108 95-109 [facility]2016-01-21 13:03:00 Test Item Value Reference Range Interpretation Comments CO2 (test code = CO2) 20 24-32 [facility]2016-01-21 13:03:00 Test Item Value Reference Range Interpretation Comments Calcium Lvl (test code = Calcium Lvl) 8.9 8.5-10.5 [facility]2016-01-21 13:03:00 Test Item Value Reference Range Interpretation Comments AGAP (test code = AGAP) 17.1 10.0-20.0 [facility] UptownNlnmxtzSDMRSOURQZ2736-36-08 13:03:00 Test Item Value Reference Range Interpretation Comments Lymphocytes # (test code = Lymphocytes 2.3 1.0-5.5 #) [facility] UptownWgpbsxcFQCHYCTNVA1190-46-01 13:03:00 Test Item Value Reference Range Interpretation Comments Basophils (test code = 1.0 See_Comment [Aut omated message] The Basophils) system which ge nerated this result tra nsmitted reference range : <=1.0. The reference r kat was not used to int erpret this result as normal/abnormal . [facility] UptownLtnfajvJNWOVSWQNB9211-43-15 13:03:00 Test Item Value Reference Range Interpretation Comments Segs-Bands # (test code = Segs-Bands #) 3.3 1.5-8.1 [facility] UptownAxetjesFGYTZGWHVZ5349-02-72 13:03:00 Test Item Value Reference Range Interpretation Comments Eosinophils (test code = 2.5 See_Comment [A utomated message] The Eosinophils) system which ge nerated this result tra nsmitted reference range : <=4.0. The reference r kat was not used to int erpret this result as normal/abnormal . [facility] UptownLhrbiamBZLLKWYCOG9408-90-44 13:03:00 Test Item Value Reference Range Interpretation Comments Eosinophils # (test code 0.2 See_Comment [A utomated message] The = Eosinophils #) system whic h generated this result tra nsmitted reference range : <=0.5. The reference r akt was not used to int erpret this result as normal/abnormal . [facility] UptownDfwfrmlWSSDELQGYX2610-86-95 13:03:00 Test Item Value Reference Range Interpretation Comments Monocytes # (test code 0.7 See_Comment [Aut omated message] The = Monocytes #) system which generated this result tra nsmitted reference range : <=0.8. The reference r kat was not used to int erpret this result as normal/abnormal . [facility] UptownBecgqjlQBASNLMBHG4670-88-19 13:03:00 Test Item Value Reference Range Interpretation Comments Microcyte (test code = 1+ *ABN*(09/19/15 Microcyte) 7:03 AM) [facility] UptownBrkfualMPLUIPJCNO0356-58-69 13:03:00 Test Item Value Reference Range Interpretation Comments Basophils # (test code 0.1 See_Comment [Aut omated message] The = Basophils #) system which generated this result tra nsmitted reference range : <=0.2. The reference r kat was not used to int erpret this result as normal/abnormal . [facility] UptownDhuexcgEJKGZTDSTT7111-88-22 13:03:00 Test Item Value Reference Range Interpretation Comments Monocytes (test code = Monocytes) 10.4 2.0-12.0 [facility] UptownBqpwdswHECJYLOAQA3062-18-75 13:03:00 Test Item Value Reference Range Interpretation Comments Lymphocytes (test code = Lymphocytes) 35.3 20.0-40.0 [facility] UptownQfguuleLNNDQTUFTJ7457-57-66 13:03:00 Test Item Value Reference Range Interpretation Comments Segs (test code = Segs) 50.8 45.0-75.0 [facility] UptownMloqqxxZOYMMFAOYV3840-92-90 13:03:00 Test Item Value Reference Range Interpretation Comments MCHC (test code = MCHC) 30.5 32.0-36.0 [facility] UptownMkrpnayRAMPQFRUJM7177-21-20 13:03:00 Test Item Value Reference Range Interpretation Comments Platelet (test code = Platelet) 175 133-450 [facility] UptownLkbksjeIODHHEPQAE4131-16-63 13:03:00 Test Item Value Reference Range Interpretation Comments RDW (test code = RDW) 17.1 11.5-14.5 [facility] UptownOaqzqyuUREMAPOCWB8065-38-38 13:03:00 Test Item Value Reference Range Interpretation Comments MCV (test code = MCV) 78.4 80.0-98.0 [facility] UptownLkmtcyoQEQMTYZMBL1073-01-59 13:03:00 Test Item Value Reference Range Interpretation Comments MCH (test code = MCH) 24.0 pg 27.0-31.0 [facility] UptownGtwztqpQIUFAFMQKE6879-63-76 13:03:00 Test Item Value Reference Range Interpretation Comments RBC (test code = RBC) 5.15 4.20-5.40 [facility] UptownDuovnyaBLYVESVMUE3060-19-21 13:03:00 Test Item Value Reference Range Interpretation Comments Hct (test code = Hct) 40.4 36.0-48.0 [facility] UptownFxlbicqAZDNSWXPII7060-52-58 13:03:00 Test Item Value Reference Range Interpretation Comments WBC (test code = WBC) 6.5 3.7-10.4 [facility] UptownDltgpgmZSGPQHJXJV5200-29-21 13:03:00 Test Item Value Reference Range Interpretation Comments MPV (test code = MPV) 10.2 7.4-10.4 [facility] UptownFffipghPUPSIVWUZR3163-08-82 13:03:00 Test Item Value Reference Range Interpretation Comments Hgb (test code = Hgb) 12.3 12.0-16.0 [facility]2016-01-21 13:03:00 Test Item Value Reference Range Interpretation Comments Magnesium Lvl (test code = Magnesium 1.9 1.8-2.4 Lvl) [facility]2016-01-21 13:03:00 Test Item Value Reference Range Interpretation Comments eGFR (test code = eGFR) 127 [facility]2016-01-21 13:03:00 Test Item Value Reference Range Interpretation Comments Creatinine Lvl (test code = Creatinine 0.60 0.50-1.40 Lvl) [facility]2016-01-21 13:03:00 Test Item Value Reference Range Interpretation Comments Glucose Lvl (test code = Glucose Lvl) 82 70-99 [facility]2016-01-21 13:03:00 Test Item Value Reference Range Interpretation Comments BUN (test code = BUN) 7 7-22 [facility]2016-01-21 13:03:00 Test Item Value Reference Range Interpretation Comments Potassium Lvl (test code = Potassium 4.1 3.5-5.1 Lvl) [facility]2016-01-21 13:03:00 Test Item Value Reference Range Interpretation Comments Sodium Lvl (test code = Sodium Lvl) 141 135-145 [facility]2016-01-21 13:03:00 Test Item Value Reference Range Interpretation Comments Chloride Lvl (test code = Chloride Lvl) 108 95-109 [facility]2016-01-21 13:03:00 Test Item Value Reference Range Interpretation Comments CO2 (test code = CO2) 20 24-32 [facility]2016-01-21 13:03:00 Test Item Value Reference Range Interpretation Comments Calcium Lvl (test code = Calcium Lvl) 8.9 8.5-10.5 [facility]2016-01-21 13:03:00 Test Item Value Reference Range Interpretation Comments AGAP (test code = AGAP) 17.1 10.0-20.0 [facility] UptownEqusopnLYDYFGWQDV9466-25-26 13:03:00 Test Item Value Reference Range Interpretation Comments Lymphocytes # (test code = Lymphocytes 2.3 1.0-5.5 #) [facility] UptownIjbsmaaYJEPVSBSQQ5790-84-95 13:03:00 Test Item Value Reference Range Interpretation Comments Basophils (test code = 1.0 See_Comment [Aut omated message] The Basophils) system which ge nerated this result tra nsmitted reference range : <=1.0. The reference r kat was not used to int erpret this result as normal/abnormal . [facility] UptownXhfptibMITOXTRYZT2397-63-79 13:03:00 Test Item Value Reference Range Interpretation Comments Segs-Bands # (test code = Segs-Bands #) 3.3 1.5-8.1 [facility] UptownRmkcohvWJSBANWQLK6344-41-46 13:03:00 Test Item Value Reference Range Interpretation Comments Eosinophils (test code = 2.5 See_Comment [A utomated message] The Eosinophils) system which ge nerated this result tra nsmitted reference range : <=4.0. The reference r kat was not used to int erpret this result as normal/abnormal . [place] 733976-01-21 13:03:00 Test Item Value Reference Range Interpretation Comments Eosinophils # (test code 0.2 See_Comment [A utomated message] The = Eosinophils #) system whic h generated this result tra nsmitted reference range : <=0.5. The reference r kat was not used to int erpret this result as normal/abnormal . [facility] UptownWesftucOYOLUJILJY7991-88-75 13:03:00 Test Item Value Reference Range Interpretation Comments Monocytes # (test code 0.7 See_Comment [Aut omated message] The = Monocytes #) system which generated this result tra nsmitted reference range : <=0.8. The reference r kat was not used to int erpret this result as normal/abnormal . [facility] UptownCbvudefTWCHEDQSFZ4372-08-94 13:03:00 Test Item Value Reference Range Interpretation Comments Microcyte (test code = 1+ *ABN*(09/19/15 Microcyte) 7:03 AM) [facility] UptownNrijljiAHQJNFASPH6538-15-71 13:03:00 Test Item Value Reference Range Interpretation Comments Basophils # (test code 0.1 See_Comment [Aut omated message] The = Basophils #) system which generated this result tra nsmitted reference range : <=0.2. The reference r kat was not used to int erpret this result as normal/abnormal . [facility] UptownFzicghyFKCYQSJQZG5184-10-50 13:03:00 Test Item Value Reference Range Interpretation Comments Monocytes (test code = Monocytes) 10.4 2.0-12.0 [facility] UptownRqsohvcYGVGCLWYIL0850-74-20 13:03:00 Test Item Value Reference Range Interpretation Comments Lymphocytes (test code = Lymphocytes) 35.3 20.0-40.0 [facility] UptownMnhzrbtJZEHSZLIJE1895-65-53 13:03:00 Test Item Value Reference Range Interpretation Comments Segs (test code = Segs) 50.8 45.0-75.0 [facility] UptownPxsayhsXTNBBGDUVN2013-33-06 13:03:00 Test Item Value Reference Range Interpretation Comments MCHC (test code = MCHC) 30.5 32.0-36.0 [facility] UptownAlcbpcqMITJYGFITF5788-32-55 13:03:00 Test Item Value Reference Range Interpretation Comments Platelet (test code = Platelet) 175 133-450 [facility] UptownHmwlbeyXWCDPAODPG3884-48-80 13:03:00 Test Item Value Reference Range Interpretation Comments RDW (test code = RDW) 17.1 11.5-14.5 [facility] UptownSxeifnyXHNUVNXTNQ1680-75-59 13:03:00 Test Item Value Reference Range Interpretation Comments MCV (test code = MCV) 78.4 80.0-98.0 [facility] UptownQvkrzctANCBMALANQ7497-34-95 13:03:00 Test Item Value Reference Range Interpretation Comments MCH (test code = MCH) 24.0 pg 27.0-31.0 [facility] UptownYfsootbVLKPXVESBW9520-33-71 13:03:00 Test Item Value Reference Range Interpretation Comments RBC (test code = RBC) 5.15 4.20-5.40 [facility] UptownCocsqwuDYISPXHSSA0444-12-71 13:03:00 Test Item Value Reference Range Interpretation Comments Hct (test code = Hct) 40.4 36.0-48.0 [facility] UptownDcpntrhUFOSODGDVM7767-17-85 13:03:00 Test Item Value Reference Range Interpretation Comments WBC (test code = WBC) 6.5 3.7-10.4 [facility] UptownQvtrvowVVGEUTEHHZ5080-06-05 13:03:00 Test Item Value Reference Range Interpretation Comments MPV (test code = MPV) 10.2 7.4-10.4 [facility] UptownXubauxfPQAQGZPFCA1202-61-10 13:03:00 Test Item Value Reference Range Interpretation Comments Hgb (test code = Hgb) 12.3 12.0-16.0 [facility]2016-01-21 13:03:00 Test Item Value Reference Range Interpretation Comments Magnesium Lvl (test code = Magnesium 1.9 1.8-2.4 Lvl) [facility]2016-01-21 13:03:00 Test Item Value Reference Range Interpretation Comments eGFR (test code = eGFR) 127 [facility]2016-01-21 13:03:00 Test Item Value Reference Range Interpretation Comments Creatinine Lvl (test code = Creatinine 0.60 0.50-1.40 Lvl) [facility]2016-01-21 13:03:00 Test Item Value Reference Range Interpretation Comments Glucose Lvl (test code = Glucose Lvl) 82 70-99 [facility]2016-01-21 13:03:00 Test Item Value Reference Range Interpretation Comments BUN (test code = BUN) 7 7-22 [facility]2016-01-21 13:03:00 Test Item Value Reference Range Interpretation Comments Potassium Lvl (test code = Potassium 4.1 3.5-5.1 Lvl) [facility]2016-01-21 13:03:00 Test Item Value Reference Range Interpretation Comments Sodium Lvl (test code = Sodium Lvl) 141 135-145 [facility]2016-01-21 13:03:00 Test Item Value Reference Range Interpretation Comments Chloride Lvl (test code = Chloride Lvl) 108 95-109 [facility]2016-01-21 13:03:00 Test Item Value Reference Range Interpretation Comments CO2 (test code = CO2) 20 24-32 [facility]2016-01-21 13:03:00 Test Item Value Reference Range Interpretation Comments Calcium Lvl (test code = Calcium Lvl) 8.9 8.5-10.5 [facility]2016-01-21 13:03:00 Test Item Value Reference Range Interpretation Comments AGAP (test code = AGAP) 17.1 10.0-20.0 [facility] UptownKaxredlSPIOPPZOZI6675-91-57 13:03:00 Test Item Value Reference Range Interpretation Comments Lymphocytes # (test code = Lymphocytes 2.3 1.0-5.5 #) [facility] UptownDqavljwOIERFOHHCE8366-30-51 13:03:00 Test Item Value Reference Range Interpretation Comments Basophils (test code = 1.0 See_Comment [Aut omated message] The Basophils) system which ge nerated this result tra nsmitted reference range : <=1.0. The reference r kat was not used to int erpret this result as normal/abnormal . [facility] UptownMmvfcrnLCVVXCUYRI3220-67-46 13:03:00 Test Item Value Reference Range Interpretation Comments Segs-Bands # (test code = Segs-Bands #) 3.3 1.5-8.1 [facility] UptownMpkjggkVLFUYLSBBG0413-92-24 13:03:00 Test Item Value Reference Range Interpretation Comments Eosinophils (test code = 2.5 See_Comment [A utomated message] The Eosinophils) system which ge nerated this result tra nsmitted reference range : <=4.0. The reference r kat was not used to int erpret this result as normal/abnormal . [place] 733976-01-21 13:03:00 Test Item Value Reference Range Interpretation Comments Eosinophils # (test code 0.2 See_Comment [A utomated message] The = Eosinophils #) system whic h generated this result tra nsmitted reference range : <=0.5. The reference r kat was not used to int erpret this result as normal/abnormal . [facility] UptownFhlmwzcMSABRIKGHV1743-32-37 13:03:00 Test Item Value Reference Range Interpretation Comments Monocytes # (test code 0.7 See_Comment [Aut omated message] The = Monocytes #) system which generated this result tra nsmitted reference range : <=0.8. The reference r kat was not used to int erpret this result as normal/abnormal . [facility] UptownGurimyvOKFEZUSIKM9800-61-71 13:03:00 Test Item Value Reference Range Interpretation Comments Microcyte (test code = 1+ *ABN*(09/19/15 Microcyte) 7:03 AM) [facility] UptownCjlsdftSKFRHLGBMO5110-10-36 13:03:00 Test Item Value Reference Range Interpretation Comments Basophils # (test code 0.1 See_Comment [Aut omated message] The = Basophils #) system which generated this result tra nsmitted reference range : <=0.2. The reference r kat was not used to int erpret this result as normal/abnormal . [facility] UptownOntggvzFCRJRTMYVF2045-06-72 13:03:00 Test Item Value Reference Range Interpretation Comments Monocytes (test code = Monocytes) 10.4 2.0-12.0 [facility] UptownMkrkwowUXDGILDIPA5196-69-02 13:03:00 Test Item Value Reference Range Interpretation Comments Lymphocytes (test code = Lymphocytes) 35.3 20.0-40.0 [facility] UptownUvxsnecECKJFYMDVW9771-72-82 13:03:00 Test Item Value Reference Range Interpretation Comments Segs (test code = Segs) 50.8 45.0-75.0 [facility] UptownAouresqWHPYOXKUUB0897-55-17 13:03:00 Test Item Value Reference Range Interpretation Comments MCHC (test code = MCHC) 30.5 32.0-36.0 [facility] UptownLmhwcwhBPEIGFWVEG8119-20-69 13:03:00 Test Item Value Reference Range Interpretation Comments Platelet (test code = Platelet) 175 133-450 [facility] UptownYdiltjgEHPETHTAOS5999-93-43 13:03:00 Test Item Value Reference Range Interpretation Comments RDW (test code = RDW) 17.1 11.5-14.5 [facility] UptownFavenpcJWEQROZNOC2518-65-08 13:03:00 Test Item Value Reference Range Interpretation Comments MCV (test code = MCV) 78.4 80.0-98.0 [facility] UptownBlydjwzRUAIVHWSOP4305-28-96 13:03:00 Test Item Value Reference Range Interpretation Comments MCH (test code = MCH) 24.0 pg 27.0-31.0 [facility] UptownEacafmbWGDSFTGWYH0417-34-93 13:03:00 Test Item Value Reference Range Interpretation Comments RBC (test code = RBC) 5.15 4.20-5.40 [facility] [facility]2016-01-21 13:03:00 Test Item Value Reference Range Interpretation Comments Magnesium Lvl (test code = Magnesium 1.9 1.8-2.4 Lvl) [facility]ownBgntndsNDJEDHLLRO0632-51-56 13:03:00 Test Item Value Reference Range Interpretation Comments Hct (test code = Hct) 40.4 36.0-48.0 [facility]ownGjflryfUTCLJTOBLE8993-94-80 13:03:00 Test Item Value Reference Range Interpretation Comments WBC (test code = WBC) 6.5 3.7-10.4 [facility]ptownPfwkzcoKLAIFUORLJ7616-20-18 13:03:00 Test Item Value Reference Range Interpretation Comments MPV (test code = MPV) 10.2 7.4-10.4 [facility]ownIvyfuavOTRUIFHVAL5495-23-42 13:03:00 Test Item Value Reference Range Interpretation Comments Hgb (test code = Hgb) 12.3 12.0-16.0 [facility]2016-01-21 13:03:00 Test Item Value Reference Range Interpretation Comments eGFR (test code = eGFR) 127 [facility]2016-01-21 13:03:00 Test Item Value Reference Range Interpretation Comments Creatinine Lvl (test code = Creatinine 0.60 0.50-1.40 Lvl) [facility]2016-01-21 13:03:00 Test Item Value Reference Range Interpretation Comments Glucose Lvl (test code = Glucose Lvl) 82 70-99 [facility]2016-01-21 13:03:00 Test Item Value Reference Range Interpretation Comments BUN (test code = BUN) 7 7-22 [facility]2016-01-21 13:03:00 Test Item Value Reference Range Interpretation Comments Potassium Lvl (test code = Potassium 4.1 3.5-5.1 Lvl) [facility]2016-01-21 13:03:00 Test Item Value Reference Range Interpretation Comments Sodium Lvl (test code = Sodium Lvl) 141 135-145 [facility]2016-01-21 13:03:00 Test Item Value Reference Range Interpretation Comments Chloride Lvl (test code = Chloride Lvl) 108 95-109 [facility]2016-01-21 13:03:00 Test Item Value Reference Range Interpretation Comments CO2 (test code = CO2) 20 24-32 [facility]2016-01-21 13:03:00 Test Item Value Reference Range Interpretation Comments Calcium Lvl (test code = Calcium Lvl) 8.9 8.5-10.5 [facility]2016-01-21 13:03:00 Test Item Value Reference Range Interpretation Comments AGAP (test code = AGAP) 17.1 10.0-20.0 [facility]ptownSvouucaVYOCJUSUGJ8102-60-29 13:03:00 Test Item Value Reference Range Interpretation Comments Lymphocytes # (test code = Lymphocytes 2.3 1.0-5.5 #) [facility]ptownBkmrwuwMCOMZYMIUF1631-79-94 13:03:00 Test Item Value Reference Range Interpretation Comments Basophils (test code = 1.0 See_Comment [Aut omated message] The Basophils) system which ge nerated this result tra nsmitted reference range : <=1.0. The reference r kat was not used to int erpret this result as normal/abnormal . [facility]ptownZldwiewPSCNGZZGKJ8953-68-13 13:03:00 Test Item Value Reference Range Interpretation Comments Segs-Bands # (test code = Segs-Bands #) 3.3 1.5-8.1 [facility]ptownMiuftmnQJJZQBHVXP1899-74-97 13:03:00 Test Item Value Reference Range Interpretation Comments Eosinophils (test code = 2.5 See_Comment [A utomated message] The Eosinophils) system which ge nerated this result tra nsmitted reference range : <=4.0. The reference r kat was not used to int erpret this result as normal/abnormal . [facility]ownQekgqgyJBCEEOSNFF1198-33-24 13:03:00 Test Item Value Reference Range Interpretation Comments Eosinophils # (test code 0.2 See_Comment [A utomated message] The = Eosinophils #) system whic h generated this result tra nsmitted reference range : <=0.5. The reference r kat was not used to int erpret this result as normal/abnormal . [facility]ptownHnauspqEJQAPWFLJG7076-62-42 13:03:00 Test Item Value Reference Range Interpretation Comments Monocytes # (test code 0.7 See_Comment [Aut omated message] The = Monocytes #) system which generated this result tra nsmitted reference range : <=0.8. The reference r kat was not used to int erpret this result as normal/abnormal . [facility]ownZhsamvpZFAZGMYNZJ8077-79-52 13:03:00 Test Item Value Reference Range Interpretation Comments Microcyte (test code = 1+ *ABN*(09/19/15 Microcyte) 7:03 AM) [facility]ownQxwuuwjIWLIEVITHZ5152-96-46 13:03:00 Test Item Value Reference Range Interpretation Comments Basophils # (test code 0.1 See_Comment [Aut omated message] The = Basophils #) system which generated this result tra nsmitted reference range : <=0.2. The reference r kat was not used to int erpret this result as normal/abnormal . [facility]ptownOdllbnoSUJDQIHHCS4344-77-06 13:03:00 Test Item Value Reference Range Interpretation Comments Monocytes (test code = Monocytes) 10.4 2.0-12.0 [facility] UptownVxroeupAYUSTLPYNG0731-91-54 13:03:00 Test Item Value Reference Range Interpretation Comments Lymphocytes (test code = Lymphocytes) 35.3 20.0-40.0 [facility]ptownLnbmkfbKSVUERUTVJ2806-93-06 13:03:00 Test Item Value Reference Range Interpretation Comments Segs (test code = Segs) 50.8 45.0-75.0 [facility]ptownPfxyjcrIPKPHVLWAG7931-55-00 13:03:00 Test Item Value Reference Range Interpretation Comments MCHC (test code = MCHC) 30.5 32.0-36.0 [facility]ptownJivmqzaXFEJSRPQZA8069-49-42 13:03:00 Test Item Value Reference Range Interpretation Comments Platelet (test code = Platelet) 175 133-450 [facility]ptownImvkdhgBSKYSQAYFX6594-53-22 13:03:00 Test Item Value Reference Range Interpretation Comments RDW (test code = RDW) 17.1 11.5-14.5 [facility]ptownLykklqyTEQSWBMXSI8227-27-74 13:03:00 Test Item Value Reference Range Interpretation Comments MCV (test code = MCV) 78.4 80.0-98.0 [place] 733976-01-21 13:03:00 Test Item Value Reference Range Interpretation Comments MCH (test code = MCH) 24.0 pg 27.0-31.0 [facility]ownOyacztgNOKNLJUOSQ4521-14-78 13:03:00 Test Item Value Reference Range Interpretation Comments RBC (test code = RBC) 5.15 4.20-5.40 [facility]ptownYmlwofcGULEYNCQHG9593-10-73 13:03:00 Test Item Value Reference Range Interpretation Comments Hct (test code = Hct) 40.4 36.0-48.0 [facility]ptownUqojyemQPYSBDFXLO9503-87-21 13:03:00 Test Item Value Reference Range Interpretation Comments WBC (test code = WBC) 6.5 3.7-10.4 [facility] UptownBsifegvXHCAGUSOXM7071-53-33 13:03:00 Test Item Value Reference Range Interpretation Comments MPV (test code = MPV) 10.2 7.4-10.4 [facility]ptownWsuxmjrHGRYESGZCC3530-13-62 13:03:00 Test Item Value Reference Range Interpretation Comments Hgb (test code = Hgb) 12.3 12.0-16.0 [facility]2016-01-21 13:03:00 Test Item Value Reference Range Interpretation Comments Magnesium Lvl (test code = Magnesium 1.9 1.8-2.4 Lvl) [facility]2016-01-21 13:03:00 Test Item Value Reference Range Interpretation Comments eGFR (test code = eGFR) 127 [facility]2016-01-21 13:03:00 Test Item Value Reference Range Interpretation Comments Creatinine Lvl (test code = Creatinine 0.60 0.50-1.40 Lvl) [facility]2016-01-21 13:03:00 Test Item Value Reference Range Interpretation Comments Glucose Lvl (test code = Glucose Lvl) 82 70-99 [facility]2016-01-21 13:03:00 Test Item Value Reference Range Interpretation Comments BUN (test code = BUN) 7 7-22 [facility]2016-01-21 13:03:00 Test Item Value Reference Range Interpretation Comments Potassium Lvl (test code = Potassium 4.1 3.5-5.1 Lvl) [facility]2016-01-21 13:03:00 Test Item Value Reference Range Interpretation Comments Sodium Lvl (test code = Sodium Lvl) 141 135-145 [facility]2016-01-21 13:03:00 Test Item Value Reference Range Interpretation Comments Chloride Lvl (test code = Chloride Lvl) 108 95-109 [facility]2016-01-21 13:03:00 Test Item Value Reference Range Interpretation Comments CO2 (test code = CO2) 20 24-32 [facility]2016-01-21 13:03:00 Test Item Value Reference Range Interpretation Comments Calcium Lvl (test code = Calcium Lvl) 8.9 8.5-10.5 [facility]2016-01-21 13:03:00 Test Item Value Reference Range Interpretation Comments AGAP (test code = AGAP) 17.1 10.0-20.0 [facility]ownCspzidtDNESEHERUR8043-52-89 13:03:00 Test Item Value Reference Range Interpretation Comments Lymphocytes # (test code = Lymphocytes 2.3 1.0-5.5 #) [facility]ownWsxrsbmFGVLAPDLGH7247-93-45 13:03:00 Test Item Value Reference Range Interpretation Comments Basophils (test code = 1.0 See_Comment [Aut omated message] The Basophils) system which ge nerated this result tra nsmitted reference range : <=1.0. The reference r kat was not used to int erpret this result as normal/abnormal . [facility]ptownMphbivdBZDXUKBFFT5026-03-95 13:03:00 Test Item Value Reference Range Interpretation Comments Segs-Bands # (test code = Segs-Bands #) 3.3 1.5-8.1 [facility]ptownKkhwwktCJXEVLCTJJ2337-75-31 13:03:00 Test Item Value Reference Range Interpretation Comments Eosinophils (test code = 2.5 See_Comment [A utomated message] The Eosinophils) system which ge nerated this result tra nsmitted reference range : <=4.0. The reference r kat was not used to int erpret this result as normal/abnormal . [facility]ownHmojwjyGBTTHHLYYW6084-61-77 13:03:00 Test Item Value Reference Range Interpretation Comments Eosinophils # (test code 0.2 See_Comment [A utomated message] The = Eosinophils #) system whic h generated this result tra nsmitted reference range : <=0.5. The reference r kat was not used to int erpret this result as normal/abnormal . [facility]ptownAwbzmxsSIODYOCAPN8408-40-32 13:03:00 Test Item Value Reference Range Interpretation Comments Monocytes # (test code 0.7 See_Comment [Aut omated message] The = Monocytes #) system which generated this result tra nsmitted reference range : <=0.8. The reference r kat was not used to int erpret this result as normal/abnormal . [facility]ptownAujgdajIGHODLSMOY1377-72-73 13:03:00 Test Item Value Reference Range Interpretation Comments Microcyte (test code = 1+ *ABN*(09/19/15 Microcyte) 7:03 AM) [facility]ownUeezpapWIAZQIHJGO6987-05-23 13:03:00 Test Item Value Reference Range Interpretation Comments Basophils # (test code 0.1 See_Comment [Aut omated message] The = Basophils #) system which generated this result tra nsmitted reference range : <=0.2. The reference r kat was not used to int erpret this result as normal/abnormal . [facility] UptownYfipzlsWASYTCNPZE8782-70-18 13:03:00 Test Item Value Reference Range Interpretation Comments Monocytes (test code = Monocytes) 10.4 2.0-12.0 [facility]ptownPjvgmvnKHANRXGRTK7795-84-60 13:03:00 Test Item Value Reference Range Interpretation Comments Lymphocytes (test code = Lymphocytes) 35.3 20.0-40.0 [facility]ownKldezkbMGQHXUJEGJ8075-35-01 13:03:00 Test Item Value Reference Range Interpretation Comments Segs (test code = Segs) 50.8 45.0-75.0 [facility]ptownLenvuqqPMGQTHEIEA7304-63-92 13:03:00 Test Item Value Reference Range Interpretation Comments MCHC (test code = MCHC) 30.5 32.0-36.0 [facility]ptownTofdczwIPQEZBDVCT3480-51-44 13:03:00 Test Item Value Reference Range Interpretation Comments Platelet (test code = Platelet) 175 133-450 [facility]ptownMppakhxFRZXAIACYS6633-95-34 13:03:00 Test Item Value Reference Range Interpretation Comments RDW (test code = RDW) 17.1 11.5-14.5 [facility]ptownCdbfttmYEONMVGJHB2829-31-68 13:03:00 Test Item Value Reference Range Interpretation Comments MCV (test code = MCV) 78.4 80.0-98.0 [facility]ptownYidpyjcPFKWOYJSBU7846-28-48 13:03:00 Test Item Value Reference Range Interpretation Comments MCH (test code = MCH) 24.0 pg 27.0-31.0 [facility]ptownHhiusbjZPIQCCIVSD1892-78-00 13:03:00 Test Item Value Reference Range Interpretation Comments RBC (test code = RBC) 5.15 4.20-5.40 [facility]ownMpqppuqSPPJEAULBF4480-82-93 13:03:00 Test Item Value Reference Range Interpretation Comments Hct (test code = Hct) 40.4 36.0-48.0 [facility] UptownUdbulhmYQKOSGKKQS5985-55-09 13:03:00 Test Item Value Reference Range Interpretation Comments WBC (test code = WBC) 6.5 3.7-10.4 [facility]ptownKyfmragUMNUGPPMBB9288-34-94 13:03:00 Test Item Value Reference Range Interpretation Comments MPV (test code = MPV) 10.2 7.4-10.4 [facility]ptownBjrxqzpMCLORMUVFB7151-29-51 13:03:00 Test Item Value Reference Range Interpretation Comments Hgb (test code = Hgb) 12.3 12.0-16.0 [facility]2016-01-21 13:03:00 Test Item Value Reference Range Interpretation Comments Magnesium Lvl (test code = Magnesium 1.9 1.8-2.4 Lvl) [facility]2016-01-21 13:03:00 Test Item Value Reference Range Interpretation Comments eGFR (test code = eGFR) 127 [facility]2016-01-21 13:03:00 Test Item Value Reference Range Interpretation Comments Creatinine Lvl (test code = Creatinine 0.60 0.50-1.40 Lvl) [facility]2016-01-21 13:03:00 Test Item Value Reference Range Interpretation Comments Glucose Lvl (test code = Glucose Lvl) 82 70-99 [facility]2016-01-21 13:03:00 Test Item Value Reference Range Interpretation Comments BUN (test code = BUN) 7 7-22 [facility]2016-01-21 13:03:00 Test Item Value Reference Range Interpretation Comments Potassium Lvl (test code = Potassium 4.1 3.5-5.1 Lvl) [facility]2016-01-21 13:03:00 Test Item Value Reference Range Interpretation Comments Sodium Lvl (test code = Sodium Lvl) 141 135-145 [facility]2016-01-21 13:03:00 Test Item Value Reference Range Interpretation Comments Chloride Lvl (test code = Chloride Lvl) 108 95-109 [facility]2016-01-21 13:03:00 Test Item Value Reference Range Interpretation Comments CO2 (test code = CO2) 20 24-32 [facility]2016-01-21 13:03:00 Test Item Value Reference Range Interpretation Comments Calcium Lvl (test code = Calcium Lvl) 8.9 8.5-10.5 [facility]2016-01-21 13:03:00 Test Item Value Reference Range Interpretation Comments AGAP (test code = AGAP) 17.1 10.0-20.0 [facility]ptownFnmzyjgZCOHKDCXFY4291-49-09 13:03:00 Test Item Value Reference Range Interpretation Comments Lymphocytes # (test code = Lymphocytes 2.3 1.0-5.5 #) [facility]ptownCtwuhddDLXPJYRTKK4147-67-75 13:03:00 Test Item Value Reference Range Interpretation Comments Basophils (test code = 1.0 See_Comment [Aut omated message] The Basophils) system which ge nerated this result tra nsmitted reference range : <=1.0. The reference r kat was not used to int erpret this result as normal/abnormal . [facility] UptownLozumiaUDFMBDLTOC7620-03-91 13:03:00 Test Item Value Reference Range Interpretation Comments Segs-Bands # (test code = Segs-Bands #) 3.3 1.5-8.1 [facility]ptownUbfbvebCJPRPCXVYD6631-16-59 13:03:00 Test Item Value Reference Range Interpretation Comments Eosinophils (test code = 2.5 See_Comment [A utomated message] The Eosinophils) system which ge nerated this result tra nsmitted reference range : <=4.0. The reference r kat was not used to int erpret this result as normal/abnormal . [facility]ptownDobtrhjWBCMMYFPUX1852-62-80 13:03:00 Test Item Value Reference Range Interpretation Comments Eosinophils # (test code 0.2 See_Comment [A utomated message] The = Eosinophils #) system whic h generated this result tra nsmitted reference range : <=0.5. The reference r kat was not used to int erpret this result as normal/abnormal . [facility] UptownOqislarSVAGOKOZFM2782-75-40 13:03:00 Test Item Value Reference Range Interpretation Comments Monocytes # (test code 0.7 See_Comment [Aut omated message] The = Monocytes #) system which generated this result tra nsmitted reference range : <=0.8. The reference r kat was not used to int erpret this result as normal/abnormal . [facility]ownOzfnxulJPDLWBHEXX2195-00-02 13:03:00 Test Item Value Reference Range Interpretation Comments Microcyte (test code = 1+ *ABN*(09/19/15 Microcyte) 7:03 AM) [facility]ptownWhpritjMSDNJFMHQA8930-48-87 13:03:00 Test Item Value Reference Range Interpretation Comments Basophils # (test code 0.1 See_Comment [Aut omated message] The = Basophils #) system which generated this result tra nsmitted reference range : <=0.2. The reference r kat was not used to int erpret this result as normal/abnormal . [facility]ptownJiqxcmmIIJWNJUVBI6399-72-04 13:03:00 Test Item Value Reference Range Interpretation Comments Monocytes (test code = Monocytes) 10.4 2.0-12.0 [facility]ownOrcgbqdDPWJCRHXUP6691-93-67 13:03:00 Test Item Value Reference Range Interpretation Comments Lymphocytes (test code = Lymphocytes) 35.3 20.0-40.0 [facility] UptownGelgyrvBAGRMILFYN6868-95-43 13:03:00 Test Item Value Reference Range Interpretation Comments Segs (test code = Segs) 50.8 45.0-75.0 [facility]ptownArowxxvALMHUAZNLT6470-63-49 13:03:00 Test Item Value Reference Range Interpretation Comments MCHC (test code = MCHC) 30.5 32.0-36.0 [facility]ptownKmkhwzsKQJVZJZEZS1897-67-28 13:03:00 Test Item Value Reference Range Interpretation Comments Platelet (test code = Platelet) 175 133-450 [facility]ptownCcvamakEJVUQOCACS4871-31-02 13:03:00 Test Item Value Reference Range Interpretation Comments RDW (test code = RDW) 17.1 11.5-14.5 [facility]ptownZhtttllOCFLIBUHFH8346-85-26 13:03:00 Test Item Value Reference Range Interpretation Comments MCV (test code = MCV) 78.4 80.0-98.0 [facility] UptownScidaenBKDVINXVMO1969-30-94 13:03:00 Test Item Value Reference Range Interpretation Comments MCH (test code = MCH) 24.0 pg 27.0-31.0 [facility]ptownYzrztazDHTROBCDQU7473-25-33 13:03:00 Test Item Value Reference Range Interpretation Comments RBC (test code = RBC) 5.15 4.20-5.40 [facility]ptownIuwcazgXIYUOVQGMO7540-50-84 13:03:00 Test Item Value Reference Range Interpretation Comments Hct (test code = Hct) 40.4 36.0-48.0 [facility] UptownGnwaixhRPCONFMIJU6748-36-78 13:03:00 Test Item Value Reference Range Interpretation Comments WBC (test code = WBC) 6.5 3.7-10.4 [facility]ptownOowmizzDNMHJHUHJT2070-80-35 13:03:00 Test Item Value Reference Range Interpretation Comments MPV (test code = MPV) 10.2 7.4-10.4 [facility]ptownSqbvuptPIRNBENMFJ4624-85-68 13:03:00 Test Item Value Reference Range Interpretation Comments Hgb (test code = Hgb) 12.3 12.0-16.0 [facility]2016-01-21 13:03:00 Test Item Value Reference Range Interpretation Comments Magnesium Lvl (test code = Magnesium 1.9 1.8-2.4 Lvl) [facility]2016-01-21 13:03:00 Test Item Value Reference Range Interpretation Comments eGFR (test code = eGFR) 127 [facility]2016-01-21 13:03:00 Test Item Value Reference Range Interpretation Comments Creatinine Lvl (test code = Creatinine 0.60 0.50-1.40 Lvl) [facility]2016-01-21 13:03:00 Test Item Value Reference Range Interpretation Comments Glucose Lvl (test code = Glucose Lvl) 82 70-99 [facility]2016-01-21 13:03:00 Test Item Value Reference Range Interpretation Comments BUN (test code = BUN) 7 7-22 [facility]2016-01-21 13:03:00 Test Item Value Reference Range Interpretation Comments Potassium Lvl (test code = Potassium 4.1 3.5-5.1 Lvl) [facility]2016-01-21 13:03:00 Test Item Value Reference Range Interpretation Comments Sodium Lvl (test code = Sodium Lvl) 141 135-145 [facility]2016-01-21 13:03:00 Test Item Value Reference Range Interpretation Comments Chloride Lvl (test code = Chloride Lvl) 108 95-109 [facility]2016-01-21 13:03:00 Test Item Value Reference Range Interpretation Comments CO2 (test code = CO2) 20 24-32 [facility]2016-01-21 13:03:00 Test Item Value Reference Range Interpretation Comments Calcium Lvl (test code = Calcium Lvl) 8.9 8.5-10.5 [facility]2016-01-21 13:03:00 Test Item Value Reference Range Interpretation Comments AGAP (test code = AGAP) 17.1 10.0-20.0 [facility]ptownYusnvvoUUXQMEJHTM1733-84-03 13:03:00 Test Item Value Reference Range Interpretation Comments Lymphocytes # (test code = Lymphocytes 2.3 1.0-5.5 #) [facility] UptownCytlxweRQRNTSQDDX7640-10-45 13:03:00 Test Item Value Reference Range Interpretation Comments Basophils (test code = 1.0 See_Comment [Aut omated message] The Basophils) system which ge nerated this result tra nsmitted reference range : <=1.0. The reference r kat was not used to int erpret this result as normal/abnormal . [facility] UptownAtmskaqLGFHKGDMNU2197-38-94 13:03:00 Test Item Value Reference Range Interpretation Comments Segs-Bands # (test code = Segs-Bands #) 3.3 1.5-8.1 [facility] UptownDvqeuwpGHQWAHGFPV9155-10-05 13:03:00 Test Item Value Reference Range Interpretation Comments Eosinophils (test code = 2.5 See_Comment [A utomated message] The Eosinophils) system which ge nerated this result tra nsmitted reference range : <=4.0. The reference r kat was not used to int erpret this result as normal/abnormal . [facility] UptownTlkscueLPVSHJCGMX9678-10-39 13:03:00 Test Item Value Reference Range Interpretation Comments Eosinophils # (test code 0.2 See_Comment [A utomated message] The = Eosinophils #) system whic h generated this result tra nsmitted reference range : <=0.5. The reference r kat was not used to int erpret this result as normal/abnormal . [facility] UptownOtuoniaSNHZUXOMUF0126-83-66 13:03:00 Test Item Value Reference Range Interpretation Comments Monocytes # (test code 0.7 See_Comment [Aut omated message] The = Monocytes #) system which generated this result tra nsmitted reference range : <=0.8. The reference r kat was not used to int erpret this result as normal/abnormal . [facility]UuujjggAWQXTLCUAX9804-17-20 13:03:00 Test Item Value Reference Range Interpretation Comments Microcyte (test code = 1+ *ABN*(09/19/15 Microcyte) 7:03 AM) [facility]ownPjkehzhMTQMDXFJDD6244-72-11 13:03:00 Test Item Value Reference Range Interpretation Comments Basophils # (test code 0.1 See_Comment [Aut omated message] The = Basophils #) system which generated this result tra nsmitted reference range : <=0.2. The reference r kat was not used to int erpret this result as normal/abnormal . [facility]ownZpxyqoiYSTYSEZSST2634-09-79 13:03:00 Test Item Value Reference Range Interpretation Comments Monocytes (test code = Monocytes) 10.4 2.0-12.0 [facility]ownTwecqmgXACCCZWJGZ5784-41-45 13:03:00 Test Item Value Reference Range Interpretation Comments Lymphocytes (test code = Lymphocytes) 35.3 20.0-40.0 [facility]ownYbxwmpjQQFAQTTNFA2703-60-30 13:03:00 Test Item Value Reference Range Interpretation Comments Segs (test code = Segs) 50.8 45.0-75.0 [facility]ownYxlkxbiKAFSKUBDXF6226-29-86 13:03:00 Test Item Value Reference Range Interpretation Comments MCHC (test code = MCHC) 30.5 32.0-36.0 [facility]ownEwbvbttKTHROHXAOI4816-47-16 13:03:00 Test Item Value Reference Range Interpretation Comments Platelet (test code = Platelet) 175 133-450 [facility]ptownYqdjpcjYAVDUEAXLK3533-85-76 13:03:00 Test Item Value Reference Range Interpretation Comments RDW (test code = RDW) 17.1 11.5-14.5 [facility]ptownDwikiuqNPZHWEVWLB6483-11-83 13:03:00 Test Item Value Reference Range Interpretation Comments MCV (test code = MCV) 78.4 80.0-98.0 [facility]ptownAnxogudEFVBZPPBAI4216-85-82 13:03:00 Test Item Value Reference Range Interpretation Comments MCH (test code = MCH) 24.0 pg 27.0-31.0 [facility] UptownLrmzlneAEULGFVYEJ3222-99-58 13:03:00 Test Item Value Reference Range Interpretation Comments RBC (test code = RBC) 5.15 4.20-5.40 [facility]ptownUxewsylMYMWRQANKO1196-06-06 13:03:00 Test Item Value Reference Range Interpretation Comments Hct (test code = Hct) 40.4 36.0-48.0 [facility]ownJidtwdvAASGYXQGEJ6656-56-39 13:03:00 Test Item Value Reference Range Interpretation Comments WBC (test code = WBC) 6.5 3.7-10.4 [facility] UptownSbkogveYESMSTDVLO3517-70-04 13:03:00 Test Item Value Reference Range Interpretation Comments MPV (test code = MPV) 10.2 7.4-10.4 [facility]ptownGbixrquUPSQYFUIVE1432-84-38 13:03:00 Test Item Value Reference Range Interpretation Comments Hgb (test code = Hgb) 12.3 12.0-16.0 [facility]2016-01-21 13:03:00 Test Item Value Reference Range Interpretation Comments Magnesium Lvl (test code = Magnesium 1.9 1.8-2.4 Lvl) [facility]2016-01-21 13:03:00 Test Item Value Reference Range Interpretation Comments eGFR (test code = eGFR) 127 [facility]2016-01-21 13:03:00 Test Item Value Reference Range Interpretation Comments Creatinine Lvl (test code = Creatinine 0.60 0.50-1.40 Lvl) [facility]2016-01-21 13:03:00 Test Item Value Reference Range Interpretation Comments Glucose Lvl (test code = Glucose Lvl) 82 70-99 [facility]2016-01-21 13:03:00 Test Item Value Reference Range Interpretation Comments BUN (test code = BUN) 7 7-22 [facility]2016-01-21 13:03:00 Test Item Value Reference Range Interpretation Comments Potassium Lvl (test code = Potassium 4.1 3.5-5.1 Lvl) [facility]2016-01-21 13:03:00 Test Item Value Reference Range Interpretation Comments Sodium Lvl (test code = Sodium Lvl) 141 135-145 [facility]2016-01-21 13:03:00 Test Item Value Reference Range Interpretation Comments Chloride Lvl (test code = Chloride Lvl) 108 95-109 [facility]2016-01-21 13:03:00 Test Item Value Reference Range Interpretation Comments CO2 (test code = CO2) 20 24-32 [facility]2016-01-21 13:03:00 Test Item Value Reference Range Interpretation Comments Calcium Lvl (test code = Calcium Lvl) 8.9 8.5-10.5 [facility]2016-01-21 13:03:00 Test Item Value Reference Range Interpretation Comments AGAP (test code = AGAP) 17.1 10.0-20.0 [facility]ownKgnsdrrXTZJSRROCB1437-93-72 13:03:00 Test Item Value Reference Range Interpretation Comments Lymphocytes # (test code = Lymphocytes 2.3 1.0-5.5 #) [facility]ownMebxsxfGQSTUHFGRS9058-68-44 13:03:00 Test Item Value Reference Range Interpretation Comments Basophils (test code = 1.0 See_Comment [Aut omated message] The Basophils) system which ge nerated this result tra nsmitted reference range : <=1.0. The reference r kat was not used to int erpret this result as normal/abnormal . [facility]ownYjqukrdMCGICNFZGQ6023-74-43 13:03:00 Test Item Value Reference Range Interpretation Comments Segs-Bands # (test code = Segs-Bands #) 3.3 1.5-8.1 [facility]ptownIngjfiuPYTGSSQVNX4742-89-89 13:03:00 Test Item Value Reference Range Interpretation Comments Eosinophils (test code = 2.5 See_Comment [A utomated message] The Eosinophils) system which ge nerated this result tra nsmitted reference range : <=4.0. The reference r kat was not used to int erpret this result as normal/abnormal . [facility]ptownKoujfamQIJRYXMPFZ9092-91-89 13:03:00 Test Item Value Reference Range Interpretation Comments Eosinophils # (test code 0.2 See_Comment [A utomated message] The = Eosinophils #) system whic h generated this result tra nsmitted reference range : <=0.5. The reference r kat was not used to int erpret this result as normal/abnormal . [facility]ptownOrqkrwuKGDALMYGJO3510-97-39 13:03:00 Test Item Value Reference Range Interpretation Comments Monocytes # (test code 0.7 See_Comment [Aut omated message] The = Monocytes #) system which generated this result tra nsmitted reference range : <=0.8. The reference r kat was not used to int erpret this result as normal/abnormal . [facility]ptownKaxuyujGWXNGZURVT9209-68-51 13:03:00 Test Item Value Reference Range Interpretation Comments Microcyte (test code = 1+ *ABN*(09/19/15 Microcyte) 7:03 AM) [facility] UptownZmasrcwTWHCNKATTW3511-05-27 13:03:00 Test Item Value Reference Range Interpretation Comments Basophils # (test code 0.1 See_Comment [Aut omated message] The = Basophils #) system which generated this result tra nsmitted reference range : <=0.2. The reference r kat was not used to int erpret this result as normal/abnormal . [facility] UptownRrilhevQSHKESLCJJ7579-59-10 13:03:00 Test Item Value Reference Range Interpretation Comments Monocytes (test code = Monocytes) 10.4 2.0-12.0 [facility] UptownMdbcykuOPXWQGCCDT6465-18-41 13:03:00 Test Item Value Reference Range Interpretation Comments Lymphocytes (test code = Lymphocytes) 35.3 20.0-40.0 [facility] UptownRxwhsehBDWOOUDLOR0769-22-91 13:03:00 Test Item Value Reference Range Interpretation Comments Segs (test code = Segs) 50.8 45.0-75.0 [facility] UptownRcxmbpoPQFSPEQOXO8021-58-95 13:03:00 Test Item Value Reference Range Interpretation Comments MCHC (test code = MCHC) 30.5 32.0-36.0 [facility] UptownMunimicAUZMIRKSVV5547-18-31 13:03:00 Test Item Value Reference Range Interpretation Comments Platelet (test code = Platelet) 175 133-450 [facility] UptownBffzbgrGWXEVXEPON5250-49-95 13:03:00 Test Item Value Reference Range Interpretation Comments RDW (test code = RDW) 17.1 11.5-14.5 [facility]ptownQbtkhwpDCEJCFIVNX9570-97-89 13:03:00 Test Item Value Reference Range Interpretation Comments MCV (test code = MCV) 78.4 80.0-98.0 [facility]ptownPoecivvNROQXCXSQI2948-59-93 13:03:00 Test Item Value Reference Range Interpretation Comments MCH (test code = MCH) 24.0 pg 27.0-31.0 [facility]ptownUxnnkiiJCTTRUZCYC0875-11-66 13:03:00 Test Item Value Reference Range Interpretation Comments RBC (test code = RBC) 5.15 4.20-5.40 [facility] UptownYiriewlNHIVZAOREY4427-21-25 13:03:00 Test Item Value Reference Range Interpretation Comments Hct (test code = Hct) 40.4 36.0-48.0 [facility] UptownTypndniTXSUVFXRSS5172-83-01 13:03:00 Test Item Value Reference Range Interpretation Comments WBC (test code = WBC) 6.5 3.7-10.4 [facility]ptownKjebsuqUJLPFESSDQ4405-59-63 13:03:00 Test Item Value Reference Range Interpretation Comments MPV (test code = MPV) 10.2 7.4-10.4 [facility] UptownTfzmnfeDQNCLMOEKC9615-61-28 13:03:00 Test Item Value Reference Range Interpretation Comments Hgb (test code = Hgb) 12.3 12.0-16.0 [facility]2016-01-21 13:03:00 Test Item Value Reference Range Interpretation Comments Magnesium Lvl (test code = Magnesium 1.9 1.8-2.4 Lvl) [facility]2016-01-21 13:03:00 Test Item Value Reference Range Interpretation Comments eGFR (test code = eGFR) 127 [facility]2016-01-21 13:03:00 Test Item Value Reference Range Interpretation Comments Creatinine Lvl (test code = Creatinine 0.60 0.50-1.40 Lvl) [facility]2016-01-21 13:03:00 Test Item Value Reference Range Interpretation Comments Glucose Lvl (test code = Glucose Lvl) 82 70-99 [facility]2016-01-21 13:03:00 Test Item Value Reference Range Interpretation Comments BUN (test code = BUN) 7 7-22 [facility]2016-01-21 13:03:00 Test Item Value Reference Range Interpretation Comments Potassium Lvl (test code = Potassium 4.1 3.5-5.1 Lvl) [facility]2016-01-21 13:03:00 Test Item Value Reference Range Interpretation Comments Sodium Lvl (test code = Sodium Lvl) 141 135-145 [facility]2016-01-21 13:03:00 Test Item Value Reference Range Interpretation Comments Chloride Lvl (test code = Chloride Lvl) 108 95-109 [facility]2016-01-21 13:03:00 Test Item Value Reference Range Interpretation Comments CO2 (test code = CO2) 20 24-32 [facility]2016-01-21 13:03:00 Test Item Value Reference Range Interpretation Comments Calcium Lvl (test code = Calcium Lvl) 8.9 8.5-10.5 [facility]2016-01-21 13:03:00 Test Item Value Reference Range Interpretation Comments AGAP (test code = AGAP) 17.1 10.0-20.0 [facility]ptownWpsidrbVWWOEVTETT3949-57-76 13:03:00 Test Item Value Reference Range Interpretation Comments Lymphocytes # (test code = Lymphocytes 2.3 1.0-5.5 #) [facility] UptownTzwjnrnTBEZNGWPBX7592-19-71 13:03:00 Test Item Value Reference Range Interpretation Comments Basophils (test code = 1.0 See_Comment [Aut omated message] The Basophils) system which ge nerated this result tra nsmitted reference range : <=1.0. The reference r kat was not used to int erpret this result as normal/abnormal . [facility] UptownTihdkjcCVYFBKLWBK4989-14-39 13:03:00 Test Item Value Reference Range Interpretation Comments Segs-Bands # (test code = Segs-Bands #) 3.3 1.5-8.1 [facility] UptownVhyxidyGYPPPJOEIW7781-69-31 13:03:00 Test Item Value Reference Range Interpretation Comments Eosinophils (test code = 2.5 See_Comment [A utomated message] The Eosinophils) system which ge nerated this result tra nsmitted reference range : <=4.0. The reference r kat was not used to int erpret this result as normal/abnormal . [facility] UptownIxubgszDSNJXLJDQG7780-92-41 13:03:00 Test Item Value Reference Range Interpretation Comments Eosinophils # (test code 0.2 See_Comment [A utomated message] The = Eosinophils #) system whic h generated this result tra nsmitted reference range : <=0.5. The reference r kat was not used to int erpret this result as normal/abnormal . [facility]ptownRuifpnaPIPGJBZXWO9599-16-17 13:03:00 Test Item Value Reference Range Interpretation Comments Monocytes # (test code 0.7 See_Comment [Aut omated message] The = Monocytes #) system which generated this result tra nsmitted reference range : <=0.8. The reference r kat was not used to int erpret this result as normal/abnormal . [facility]ownKbftxmnPSPVTWARIR7289-14-09 13:03:00 Test Item Value Reference Range Interpretation Comments Microcyte (test code = 1+ *ABN*(09/19/15 Microcyte) 7:03 AM) [facility]ownGgmjapnNNJKGSQYBA7493-92-44 13:03:00 Test Item Value Reference Range Interpretation Comments Basophils # (test code 0.1 See_Comment [Aut omated message] The = Basophils #) system which generated this result tra nsmitted reference range : <=0.2. The reference r kat was not used to int erpret this result as normal/abnormal . [facility]ptownPewttogPNPREMDBNH3611-62-04 13:03:00 Test Item Value Reference Range Interpretation Comments Monocytes (test code = Monocytes) 10.4 2.0-12.0 [facility]ptownGrvzxawKZMJBACSDS0405-33-01 13:03:00 Test Item Value Reference Range Interpretation Comments Lymphocytes (test code = Lymphocytes) 35.3 20.0-40.0 [facility] UptownWlllnywEXKENZLBXZ9992-26-73 13:03:00 Test Item Value Reference Range Interpretation Comments Segs (test code = Segs) 50.8 45.0-75.0 [facility]ptownEmwyrhuCNLTKQPREW4570-84-74 13:03:00 Test Item Value Reference Range Interpretation Comments MCHC (test code = MCHC) 30.5 32.0-36.0 [facility] UptownNslaanrYKACJHBLYJ4775-45-33 13:03:00 Test Item Value Reference Range Interpretation Comments Platelet (test code = Platelet) 175 133-450 [facility] UptownTxjjuvpIXXNWFQBOC8530-69-53 13:03:00 Test Item Value Reference Range Interpretation Comments RDW (test code = RDW) 17.1 11.5-14.5 [facility]ptownKdyqpriNSLKSFUMSC1581-63-56 13:03:00 Test Item Value Reference Range Interpretation Comments MCV (test code = MCV) 78.4 80.0-98.0 [facility] UptownGsypionRESLCVBYPJ0395-01-78 13:03:00 Test Item Value Reference Range Interpretation Comments MCH (test code = MCH) 24.0 pg 27.0-31.0 [facility] UptownXcbcefzULBGMMXQPO9225-99-91 13:03:00 Test Item Value Reference Range Interpretation Comments RBC (test code = RBC) 5.15 4.20-5.40 [facility]ptownOnpkzduRZOHFJQXAT0057-89-24 13:03:00 Test Item Value Reference Range Interpretation Comments Hct (test code = Hct) 40.4 36.0-48.0 [facility] UptownNvsudlqWRLJOLAOGA6665-18-49 13:03:00 Test Item Value Reference Range Interpretation Comments WBC (test code = WBC) 6.5 3.7-10.4 [facility]ptownSephkkqEKACHJZZGX3677-68-56 13:03:00 Test Item Value Reference Range Interpretation Comments MPV (test code = MPV) 10.2 7.4-10.4 [facility]ptownKvchhbcVUHRAMJJIL1111-15-60 13:03:00 Test Item Value Reference Range Interpretation Comments Hgb (test code = Hgb) 12.3 12.0-16.0 [facility]2016-01-21 13:03:00 Test Item Value Reference Range Interpretation Comments Magnesium Lvl (test code = Magnesium 1.9 1.8-2.4 Lvl) [facility]2016-01-21 13:03:00 Test Item Value Reference Range Interpretation Comments eGFR (test code = eGFR) 127 [facility]2016-01-21 13:03:00 Test Item Value Reference Range Interpretation Comments Creatinine Lvl (test code = Creatinine 0.60 0.50-1.40 Lvl) [facility]2016-01-21 13:03:00 Test Item Value Reference Range Interpretation Comments Glucose Lvl (test code = Glucose Lvl) 82 70-99 [facility]2016-01-21 13:03:00 Test Item Value Reference Range Interpretation Comments BUN (test code = BUN) 7 7-22 [facility]2016-01-21 13:03:00 Test Item Value Reference Range Interpretation Comments Potassium Lvl (test code = Potassium 4.1 3.5-5.1 Lvl) [facility]2016-01-21 13:03:00 Test Item Value Reference Range Interpretation Comments Sodium Lvl (test code = Sodium Lvl) 141 135-145 [facility]2016-01-21 13:03:00 Test Item Value Reference Range Interpretation Comments Chloride Lvl (test code = Chloride Lvl) 108 95-109 [facility]2016-01-21 13:03:00 Test Item Value Reference Range Interpretation Comments CO2 (test code = CO2) 20 24-32 [facility]2016-01-21 13:03:00 Test Item Value Reference Range Interpretation Comments Calcium Lvl (test code = Calcium Lvl) 8.9 8.5-10.5 [facility]2016-01-21 13:03:00 Test Item Value Reference Range Interpretation Comments AGAP (test code = AGAP) 17.1 10.0-20.0 [facility]ptownCttsfwwIFRMMWSAIC3448-33-74 13:03:00 Test Item Value Reference Range Interpretation Comments Lymphocytes # (test code = Lymphocytes 2.3 1.0-5.5 #) [facility] UptownOdhjcjgCSTRXFYMNW3700-65-75 13:03:00 Test Item Value Reference Range Interpretation Comments Basophils (test code = 1.0 See_Comment [Aut omated message] The Basophils) system which ge nerated this result tra nsmitted reference range : <=1.0. The reference r kta was not used to int erpret this result as normal/abnormal . [facility]ptownOrvaoutSBBLPMDMND7077-43-00 13:03:00 Test Item Value Reference Range Interpretation Comments Segs-Bands # (test code = Segs-Bands #) 3.3 1.5-8.1 [facility]ptownPtjxmjlMCIGAQGLGX3265-24-46 13:03:00 Test Item Value Reference Range Interpretation Comments Eosinophils (test code = 2.5 See_Comment [A utomated message] The Eosinophils) system which ge nerated this result tra nsmitted reference range : <=4.0. The reference r kat was not used to int erpret this result as normal/abnormal . [facility]ptownCevpikyVMUOOUZZJE1947-60-73 13:03:00 Test Item Value Reference Range Interpretation Comments Eosinophils # (test code 0.2 See_Comment [A utomated message] The = Eosinophils #) system whic h generated this result tra nsmitted reference range : <=0.5. The reference r kat was not used to int erpret this result as normal/abnormal . [facility]ptownKygehyvIPJDKXEGJT0900-47-15 13:03:00 Test Item Value Reference Range Interpretation Comments Monocytes # (test code 0.7 See_Comment [Aut omated message] The = Monocytes #) system which generated this result tra nsmitted reference range : <=0.8. The reference r kat was not used to int erpret this result as normal/abnormal . [facility] UptownCpgmadwWLBYKIXCVG8304-46-39 13:03:00 Test Item Value Reference Range Interpretation Comments Microcyte (test code = 1+ *ABN*(09/19/15 Microcyte) 7:03 AM) [facility]ptownGtwtbsoPUFPVNZFJZ4065-79-84 13:03:00 Test Item Value Reference Range Interpretation Comments Basophils # (test code 0.1 See_Comment [Aut omated message] The = Basophils #) system which generated this result tra nsmitted reference range : <=0.2. The reference r kat was not used to int erpret this result as normal/abnormal . [facility] UptownNlrrtzbQHJKFMTFNT7797-59-10 13:03:00 Test Item Value Reference Range Interpretation Comments Monocytes (test code = Monocytes) 10.4 2.0-12.0 [facility] UptownHfuzxvcQIQZPVUSCT4299-38-21 13:03:00 Test Item Value Reference Range Interpretation Comments Lymphocytes (test code = Lymphocytes) 35.3 20.0-40.0 [facility] UptownDndminyINLDNRVHSN6045-41-79 13:03:00 Test Item Value Reference Range Interpretation Comments Segs (test code = Segs) 50.8 45.0-75.0 [facility]ptownCwmejrdJPMSDGXXZK1430-19-31 13:03:00 Test Item Value Reference Range Interpretation Comments MCHC (test code = MCHC) 30.5 32.0-36.0 [facility] UptownWnlziirDOQXOZAYLE0144-82-91 13:03:00 Test Item Value Reference Range Interpretation Comments Platelet (test code = Platelet) 175 133-450 [facility] UptownIfzdwlyZPTRNHTIFQ1078-03-32 13:03:00 Test Item Value Reference Range Interpretation Comments RDW (test code = RDW) 17.1 11.5-14.5 [facility] UptownAxumhtgBZMNKMWOJJ8226-34-11 13:03:00 Test Item Value Reference Range Interpretation Comments MCV (test code = MCV) 78.4 80.0-98.0 [facility] UptownNortfrtIBHOHEOJGT5527-08-87 13:03:00 Test Item Value Reference Range Interpretation Comments MCH (test code = MCH) 24.0 pg 27.0-31.0 [facility] UptownDaynmooJGMENNMNAM3977-95-48 13:03:00 Test Item Value Reference Range Interpretation Comments RBC (test code = RBC) 5.15 4.20-5.40 [facility] UptownWkjypacFZYTYDMLSO7076-80-03 13:03:00 Test Item Value Reference Range Interpretation Comments Hct (test code = Hct) 40.4 36.0-48.0 [facility] UptownNbfmvofRSUYRMXVEN3350-29-55 13:03:00 Test Item Value Reference Range Interpretation Comments WBC (test code = WBC) 6.5 3.7-10.4 [facility] UptownKyxmcdqMGNWVEUIHJ5665-22-22 13:03:00 Test Item Value Reference Range Interpretation Comments MPV (test code = MPV) 10.2 7.4-10.4 [facility] UptownVyobgchQHSYHFZDAW9918-24-77 13:03:00 Test Item Value Reference Range Interpretation Comments Hgb (test code = Hgb) 12.3 12.0-16.0 [facility]2016-01-21 13:03:00 Test Item Value Reference Range Interpretation Comments Magnesium Lvl (test code = Magnesium 1.9 1.8-2.4 Lvl) [facility]2016-01-21 13:03:00 Test Item Value Reference Range Interpretation Comments eGFR (test code = eGFR) 127 [facility]2016-01-21 13:03:00 Test Item Value Reference Range Interpretation Comments Creatinine Lvl (test code = Creatinine 0.60 0.50-1.40 Lvl) [facility]2016-01-21 13:03:00 Test Item Value Reference Range Interpretation Comments Glucose Lvl (test code = Glucose Lvl) 82 70-99 [facility]2016-01-21 13:03:00 Test Item Value Reference Range Interpretation Comments BUN (test code = BUN) 7 7-22 [facility]2016-01-21 13:03:00 Test Item Value Reference Range Interpretation Comments Potassium Lvl (test code = Potassium 4.1 3.5-5.1 Lvl) [facility]2016-01-21 13:03:00 Test Item Value Reference Range Interpretation Comments Sodium Lvl (test code = Sodium Lvl) 141 135-145 [facility]2016-01-21 13:03:00 Test Item Value Reference Range Interpretation Comments Chloride Lvl (test code = Chloride Lvl) 108 95-109 [facility]2016-01-21 13:03:00 Test Item Value Reference Range Interpretation Comments CO2 (test code = CO2) 20 24-32 [facility]2016-01-21 13:03:00 Test Item Value Reference Range Interpretation Comments Calcium Lvl (test code = Calcium Lvl) 8.9 8.5-10.5 [facility]2016-01-21 13:03:00 Test Item Value Reference Range Interpretation Comments AGAP (test code = AGAP) 17.1 10.0-20.0 [facility]JdimlqsYJJQZVPMMM7527-58-84 13:03:00 Test Item Value Reference Range Interpretation Comments Lymphocytes # (test code = Lymphocytes 2.3 1.0-5.5 #) [facility]ownLaqnujcXYZDUQMVSE3537-15-15 13:03:00 Test Item Value Reference Range Interpretation Comments Basophils (test code = 1.0 See_Comment [Aut omated message] The Basophils) system which ge nerated this result tra nsmitted reference range : <=1.0. The reference r kat was not used to int erpret this result as normal/abnormal . [facility]ptownDueieubOXZPDKFITQ8473-60-49 13:03:00 Test Item Value Reference Range Interpretation Comments Segs-Bands # (test code = Segs-Bands #) 3.3 1.5-8.1 [facility]ownWnhxpbyNHJXPBNDHO1825-15-85 13:03:00 Test Item Value Reference Range Interpretation Comments Eosinophils (test code = 2.5 See_Comment [A utomated message] The Eosinophils) system which ge nerated this result tra nsmitted reference range : <=4.0. The reference r kat was not used to int erpret this result as normal/abnormal . [facility]ptownQidqkdsYWOJCYUNVU4104-89-25 13:03:00 Test Item Value Reference Range Interpretation Comments Eosinophils # (test code 0.2 See_Comment [A utomated message] The = Eosinophils #) system whic h generated this result tra nsmitted reference range : <=0.5. The reference r kat was not used to int erpret this result as normal/abnormal . [facility]ownXwxktfcYBMLRSOXIT6225-10-06 13:03:00 Test Item Value Reference Range Interpretation Comments Monocytes # (test code 0.7 See_Comment [Aut omated message] The = Monocytes #) system which generated this result tra nsmitted reference range : <=0.8. The reference r kat was not used to int erpret this result as normal/abnormal . [facility]ownGvrsgdhNOPHMVZFBK4262-35-94 13:03:00 Test Item Value Reference Range Interpretation Comments Microcyte (test code = 1+ *ABN*(09/19/15 Microcyte) 7:03 AM) [facility]ownVndbjxhZOQYSBZSRH2354-80-88 13:03:00 Test Item Value Reference Range Interpretation Comments Basophils # (test code 0.1 See_Comment [Aut omated message] The = Basophils #) system which generated this result tra nsmitted reference range : <=0.2. The reference r kat was not used to int erpret this result as normal/abnormal . [facility] UptownRnxqclqPWIIHMDGFY6701-33-71 13:03:00 Test Item Value Reference Range Interpretation Comments Monocytes (test code = Monocytes) 10.4 2.0-12.0 [facility] UptownCpaiineMUOGDQAZJT9638-34-22 13:03:00 Test Item Value Reference Range Interpretation Comments Lymphocytes (test code = Lymphocytes) 35.3 20.0-40.0 [facility] UptownMickcezRZQUXMMGXV5298-24-92 13:03:00 Test Item Value Reference Range Interpretation Comments Segs (test code = Segs) 50.8 45.0-75.0 [facility]ptownAgefqzqMNEZFEHNPG9898-89-66 13:03:00 Test Item Value Reference Range Interpretation Comments MCHC (test code = MCHC) 30.5 32.0-36.0 [facility]ptownQzfznihYUURLPFVOV3674-30-78 13:03:00 Test Item Value Reference Range Interpretation Comments Platelet (test code = Platelet) 175 133-450 [facility] UptownTbsizdyXYBAUGQGKI5436-23-26 13:03:00 Test Item Value Reference Range Interpretation Comments RDW (test code = RDW) 17.1 11.5-14.5 [facility] UptownVexrotaJIQIIWPSGO2605-94-44 13:03:00 Test Item Value Reference Range Interpretation Comments MCV (test code = MCV) 78.4 80.0-98.0 [facility] UptownJtajduwPONJJQAWQE8440-05-49 13:03:00 Test Item Value Reference Range Interpretation Comments MCH (test code = MCH) 24.0 pg 27.0-31.0 [facility]ptownUkmtkpdFAZYUMLAGW4751-23-16 13:03:00 Test Item Value Reference Range Interpretation Comments RBC (test code = RBC) 5.15 4.20-5.40 [facility] UptownDocxlcwMPCBEVNFXZ3058-52-34 13:03:00 Test Item Value Reference Range Interpretation Comments Hct (test code = Hct) 40.4 36.0-48.0 [facility]ptownXgxgwnlQOSYVGIZRC9420-93-63 13:03:00 Test Item Value Reference Range Interpretation Comments WBC (test code = WBC) 6.5 3.7-10.4 [facility] UptownUwqccepOCYNFKDEAX2184-39-68 13:03:00 Test Item Value Reference Range Interpretation Comments MPV (test code = MPV) 10.2 7.4-10.4 [facility] UptownElejwabSSYIXIEBVQ9471-49-40 13:03:00 Test Item Value Reference Range Interpretation Comments Hgb (test code = Hgb) 12.3 12.0-16.0 [facility]2016-01-21 13:03:00 Test Item Value Reference Range Interpretation Comments Magnesium Lvl (test code = Magnesium 1.9 1.8-2.4 Lvl) [facility]2016-01-21 13:03:00 Test Item Value Reference Range Interpretation Comments eGFR (test code = eGFR) 127 [facility]2016-01-21 13:03:00 Test Item Value Reference Range Interpretation Comments Creatinine Lvl (test code = Creatinine 0.60 0.50-1.40 Lvl) [facility]2016-01-21 13:03:00 Test Item Value Reference Range Interpretation Comments Glucose Lvl (test code = Glucose Lvl) 82 70-99 [place] 203066-01-21 13:03:00 Test Item Value Reference Range Interpretation Comments BUN (test code = BUN) 7 7-22 [facility]2016-01-21 13:03:00 Test Item Value Reference Range Interpretation Comments Potassium Lvl (test code = Potassium 4.1 3.5-5.1 Lvl) [facility]2016-01-21 13:03:00 Test Item Value Reference Range Interpretation Comments Sodium Lvl (test code = Sodium Lvl) 141 135-145 [facility]2016-01-21 13:03:00 Test Item Value Reference Range Interpretation Comments Chloride Lvl (test code = Chloride Lvl) 108 95-109 [facility]2016-01-21 13:03:00 Test Item Value Reference Range Interpretation Comments CO2 (test code = CO2) 20 24-32 [facility]2016-01-21 13:03:00 Test Item Value Reference Range Interpretation Comments Calcium Lvl (test code = Calcium Lvl) 8.9 8.5-10.5 [facility]2016-01-21 13:03:00 Test Item Value Reference Range Interpretation Comments AGAP (test code = AGAP) 17.1 10.0-20.0 [facility] UptownYlmgsnwDOTMQKBOHR5115-85-41 13:03:00 Test Item Value Reference Range Interpretation Comments Lymphocytes # (test code = Lymphocytes 2.3 1.0-5.5 #) [facility] UptownZoseugwLMDILUZABJ4085-87-95 13:03:00 Test Item Value Reference Range Interpretation Comments Basophils (test code = 1.0 See_Comment [Aut omated message] The Basophils) system which ge nerated this result tra nsmitted reference range : <=1.0. The reference r kat was not used to int erpret this result as normal/abnormal . [facility] UptownTdycrgmNUYVCKKYHI9303-24-23 13:03:00 Test Item Value Reference Range Interpretation Comments Segs-Bands # (test code = Segs-Bands #) 3.3 1.5-8.1 [facility] UptownIwzmhwpYCDZZZMDXQ6103-75-61 13:03:00 Test Item Value Reference Range Interpretation Comments Eosinophils (test code = 2.5 See_Comment [A utomated message] The Eosinophils) system which ge nerated this result tra nsmitted reference range : <=4.0. The reference r kat was not used to int erpret this result as normal/abnormal . [facility] UptownNocuqlwUANJROEDGX7928-86-28 13:03:00 Test Item Value Reference Range Interpretation Comments Eosinophils # (test code 0.2 See_Comment [A utomated message] The = Eosinophils #) system whic h generated this result tra nsmitted reference range : <=0.5. The reference r kat was not used to int erpret this result as normal/abnormal . [facility] UptownIkbemskGBSBYVGLFW6139-81-45 13:03:00 Test Item Value Reference Range Interpretation Comments Monocytes # (test code 0.7 See_Comment [Aut omated message] The = Monocytes #) system which generated this result tra nsmitted reference range : <=0.8. The reference r kat was not used to int erpret this result as normal/abnormal . [facility]ptownQksxfsaYOTRKIEZNG7439-00-73 13:03:00 Test Item Value Reference Range Interpretation Comments Microcyte (test code = 1+ *ABN*(09/19/15 Microcyte) 7:03 AM) [facility] UptownZhpvacrECEORRXBSM9791-85-68 13:03:00 Test Item Value Reference Range Interpretation Comments Basophils # (test code 0.1 See_Comment [Aut omated message] The = Basophils #) system which generated this result tra nsmitted reference range : <=0.2. The reference r kat was not used to int erpret this result as normal/abnormal . [facility] UptownWuipahbBMYOFWSTMG1264-29-36 13:03:00 Test Item Value Reference Range Interpretation Comments Monocytes (test code = Monocytes) 10.4 2.0-12.0 [facility] UptownQsmfluyBYUMZRTHAX8076-43-65 13:03:00 Test Item Value Reference Range Interpretation Comments Lymphocytes (test code = Lymphocytes) 35.3 20.0-40.0 [facility] UptownWhxymwvIHZZLUNSFJ1908-10-86 13:03:00 Test Item Value Reference Range Interpretation Comments Segs (test code = Segs) 50.8 45.0-75.0 [facility] UptownFkvypmpCXVVOESIBN4584-16-26 13:03:00 Test Item Value Reference Range Interpretation Comments MCHC (test code = MCHC) 30.5 32.0-36.0 [facility]ptownMvtytlzXEGAHGBQPO2583-69-40 13:03:00 Test Item Value Reference Range Interpretation Comments Platelet (test code = Platelet) 175 133-450 [facility] UptownPrguzboZMJRPGBWTT6215-92-01 13:03:00 Test Item Value Reference Range Interpretation Comments RDW (test code = RDW) 17.1 11.5-14.5 [facility] UptownHhgjikwIKNMWVXAVW6507-32-24 13:03:00 Test Item Value Reference Range Interpretation Comments MCV (test code = MCV) 78.4 80.0-98.0 [facility] UptownYvxpbnnLCKKOSJNZJ9967-63-48 13:03:00 Test Item Value Reference Range Interpretation Comments MCH (test code = MCH) 24.0 pg 27.0-31.0 [facility] UptownUatjzcpQBEHMGCSTQ9456-46-37 13:03:00 Test Item Value Reference Range Interpretation Comments RBC (test code = RBC) 5.15 4.20-5.40 [facility] UptownIkkeeyhAOJMHBKAFI1005-36-99 13:03:00 Test Item Value Reference Range Interpretation Comments Hct (test code = Hct) 40.4 36.0-48.0 [facility] UptownCspixhjARWLZLBSVV8224-47-42 13:03:00 Test Item Value Reference Range Interpretation Comments WBC (test code = WBC) 6.5 3.7-10.4 [facility] UptownXshnehkZPLBQQMCUF6270-79-21 13:03:00 Test Item Value Reference Range Interpretation Comments MPV (test code = MPV) 10.2 7.4-10.4 [facility] UptownAcadapwAMUESORPGN7235-09-79 13:03:00 Test Item Value Reference Range Interpretation Comments Hgb (test code = Hgb) 12.3 12.0-16.0 [facility]2016-01-21 13:03:00 Test Item Value Reference Range Interpretation Comments Magnesium Lvl (test code = Magnesium 1.9 1.8-2.4 Lvl) [facility]2016-01-21 13:03:00 Test Item Value Reference Range Interpretation Comments eGFR (test code = eGFR) 127 [facility]2016-01-21 13:03:00 Test Item Value Reference Range Interpretation Comments Creatinine Lvl (test code = Creatinine 0.60 0.50-1.40 Lvl) [facility]2016-01-21 13:03:00 Test Item Value Reference Range Interpretation Comments Glucose Lvl (test code = Glucose Lvl) 82 70-99 [facility]2016-01-21 13:03:00 Test Item Value Reference Range Interpretation Comments BUN (test code = BUN) 7 7-22 [facility]2016-01-21 13:03:00 Test Item Value Reference Range Interpretation Comments Potassium Lvl (test code = Potassium 4.1 3.5-5.1 Lvl) [facility]2016-01-21 13:03:00 Test Item Value Reference Range Interpretation Comments Sodium Lvl (test code = Sodium Lvl) 141 135-145 [facility]2016-01-21 13:03:00 Test Item Value Reference Range Interpretation Comments Chloride Lvl (test code = Chloride Lvl) 108 95-109 [facility]2016-01-21 13:03:00 Test Item Value Reference Range Interpretation Comments CO2 (test code = CO2) 20 24-32 [facility]2016-01-21 13:03:00 Test Item Value Reference Range Interpretation Comments Calcium Lvl (test code = Calcium Lvl) 8.9 8.5-10.5 [facility]2016-01-21 13:03:00 Test Item Value Reference Range Interpretation Comments AGAP (test code = AGAP) 17.1 10.0-20.0 [facility] UptownXpitthpTSGWDKUVGC2782-79-45 13:03:00 Test Item Value Reference Range Interpretation Comments Lymphocytes # (test code = Lymphocytes 2.3 1.0-5.5 #) [facility]ptownYvzbxdvVGQDIBDFKV6731-78-70 13:03:00 Test Item Value Reference Range Interpretation Comments Basophils (test code = 1.0 See_Comment [Aut omated message] The Basophils) system which ge nerated this result tra nsmitted reference range : <=1.0. The reference r kat was not used to int erpret this result as normal/abnormal . [facility] UptownVvjhudlBHQGOOFEEC7822-14-98 13:03:00 Test Item Value Reference Range Interpretation Comments Segs-Bands # (test code = Segs-Bands #) 3.3 1.5-8.1 [facility] UptownHfrsqylHETZWWIWEN0095-47-37 13:03:00 Test Item Value Reference Range Interpretation Comments Eosinophils (test code = 2.5 See_Comment [A utomated message] The Eosinophils) system which ge nerated this result tra nsmitted reference range : <=4.0. The reference r kat was not used to int erpret this result as normal/abnormal . [facility] UptownVhgbgfiFZDTDXFHNU0668-06-08 13:03:00 Test Item Value Reference Range Interpretation Comments Eosinophils # (test code 0.2 See_Comment [A utomated message] The = Eosinophils #) system whic h generated this result tra nsmitted reference range : <=0.5. The reference r kat was not used to int erpret this result as normal/abnormal . [facility]ptownVrgrxhxLDBPGOBQTJ0434-67-62 13:03:00 Test Item Value Reference Range Interpretation Comments Monocytes # (test code 0.7 See_Comment [Aut omated message] The = Monocytes #) system which generated this result tra nsmitted reference range : <=0.8. The reference r kat was not used to int erpret this result as normal/abnormal . [facility] UptownLfiohfhATYSCNBNTH5025-72-84 13:03:00 Test Item Value Reference Range Interpretation Comments Microcyte (test code = 1+ *ABN*(09/19/15 Microcyte) 7:03 AM) [facility]ptownZeafjarRHCTYQAXFC5477-47-14 13:03:00 Test Item Value Reference Range Interpretation Comments Basophils # (test code 0.1 See_Comment [Aut omated message] The = Basophils #) system which generated this result tra nsmitted reference range : <=0.2. The reference r kat was not used to int erpret this result as normal/abnormal . [facility] UptownYbhdywhMCEYZBKSZX8765-06-79 13:03:00 Test Item Value Reference Range Interpretation Comments Monocytes (test code = Monocytes) 10.4 2.0-12.0 [facility] UptownHfhafvgDWPWAXQGAM0943-48-45 13:03:00 Test Item Value Reference Range Interpretation Comments Lymphocytes (test code = Lymphocytes) 35.3 20.0-40.0 [facility] UptownWpvihceAZMJZMDVFY4199-69-67 13:03:00 Test Item Value Reference Range Interpretation Comments Segs (test code = Segs) 50.8 45.0-75.0 [facility] UptownHtmvowpJDAFFPDHAW5127-53-90 13:03:00 Test Item Value Reference Range Interpretation Comments MCHC (test code = MCHC) 30.5 32.0-36.0 [facility] UptownIpacesoCVFLZYOSSA9351-42-97 13:03:00 Test Item Value Reference Range Interpretation Comments Platelet (test code = Platelet) 175 133-450 [facility] UptownVsuxxnhNFKHFBUYBO6561-11-55 13:03:00 Test Item Value Reference Range Interpretation Comments RDW (test code = RDW) 17.1 11.5-14.5 [facility] UptownPhyebrsAGAPMAYRUR9602-18-37 13:03:00 Test Item Value Reference Range Interpretation Comments MCV (test code = MCV) 78.4 80.0-98.0 [facility]ptownYgytuprMEJXPDFOZQ7657-78-86 13:03:00 Test Item Value Reference Range Interpretation Comments MCH (test code = MCH) 24.0 pg 27.0-31.0 [facility] UptownGymfeqtSWZANKJOYO0850-49-45 13:03:00 Test Item Value Reference Range Interpretation Comments RBC (test code = RBC) 5.15 4.20-5.40 [facility] UptownCufplstBVRTTKJQLU9383-62-46 13:03:00 Test Item Value Reference Range Interpretation Comments Hct (test code = Hct) 40.4 36.0-48.0 [facility] UptownLgwwdsgFTEMQSVGVC8529-29-16 13:03:00 Test Item Value Reference Range Interpretation Comments WBC (test code = WBC) 6.5 3.7-10.4 [facility] UptownKxeaulxYUDLPHBKNO0156-30-80 13:03:00 Test Item Value Reference Range Interpretation Comments MPV (test code = MPV) 10.2 7.4-10.4 [facility]ptownCbxxcmjVZFEWJIXMU4760-04-21 13:03:00 Test Item Value Reference Range Interpretation Comments Hgb (test code = Hgb) 12.3 12.0-16.0 [facility]2016-01-21 13:03:00 Test Item Value Reference Range Interpretation Comments Magnesium Lvl (test code = Magnesium 1.9 1.8-2.4 Lvl) [facility]2016-01-21 13:03:00 Test Item Value Reference Range Interpretation Comments eGFR (test code = eGFR) 127 [facility]2016-01-21 13:03:00 Test Item Value Reference Range Interpretation Comments Creatinine Lvl (test code = Creatinine 0.60 0.50-1.40 Lvl) [facility]2016-01-21 13:03:00 Test Item Value Reference Range Interpretation Comments Glucose Lvl (test code = Glucose Lvl) 82 70-99 [facility]2016-01-21 13:03:00 Test Item Value Reference Range Interpretation Comments BUN (test code = BUN) 7 7-22 [facility]2016-01-21 13:03:00 Test Item Value Reference Range Interpretation Comments Potassium Lvl (test code = Potassium 4.1 3.5-5.1 Lvl) [facility]2016-01-21 13:03:00 Test Item Value Reference Range Interpretation Comments Sodium Lvl (test code = Sodium Lvl) 141 135-145 [facility]2016-01-21 13:03:00 Test Item Value Reference Range Interpretation Comments Chloride Lvl (test code = Chloride Lvl) 108 95-109 [facility]2016-01-21 13:03:00 Test Item Value Reference Range Interpretation Comments CO2 (test code = CO2) 20 24-32 [facility]2016-01-21 13:03:00 Test Item Value Reference Range Interpretation Comments Calcium Lvl (test code = Calcium Lvl) 8.9 8.5-10.5 [facility]2016-01-21 13:03:00 Test Item Value Reference Range Interpretation Comments AGAP (test code = AGAP) 17.1 10.0-20.0 [facility] UptownFnahqpfHXYMRUIPDX7000-62-37 13:03:00 Test Item Value Reference Range Interpretation Comments Lymphocytes # (test code = Lymphocytes 2.3 1.0-5.5 #) [facility] UptownYawdusbIOPNAJHEKM1565-82-89 13:03:00 Test Item Value Reference Range Interpretation Comments Basophils (test code = 1.0 See_Comment [Aut omated message] The Basophils) system which ge nerated this result tra nsmitted reference range : <=1.0. The reference r kat was not used to int erpret this result as normal/abnormal . [facility] UptownSfjrghdVGTWYZPCWT3680-48-81 13:03:00 Test Item Value Reference Range Interpretation Comments Segs-Bands # (test code = Segs-Bands #) 3.3 1.5-8.1 [facility] UptownNvtjhjzSDBQDNDXBZ5523-37-27 13:03:00 Test Item Value Reference Range Interpretation Comments Eosinophils (test code = 2.5 See_Comment [A utomated message] The Eosinophils) system which ge nerated this result tra nsmitted reference range : <=4.0. The reference r kat was not used to int erpret this result as normal/abnormal . [facility] UptownZuurvlcCODLFFBHVS8627-18-09 13:03:00 Test Item Value Reference Range Interpretation Comments Eosinophils # (test code 0.2 See_Comment [A utomated message] The = Eosinophils #) system whic h generated this result tra nsmitted reference range : <=0.5. The reference r kat was not used to int erpret this result as normal/abnormal . [facility] UptownOeqcoreDQBDIEEJTU8526-22-95 13:03:00 Test Item Value Reference Range Interpretation Comments Monocytes # (test code 0.7 See_Comment [Aut omated message] The = Monocytes #) system which generated this result tra nsmitted reference range : <=0.8. The reference r kat was not used to int erpret this result as normal/abnormal . [facility] UptownHebkfomUNKLCGSWMX5156-47-42 13:03:00 Test Item Value Reference Range Interpretation Comments Microcyte (test code = 1+ *ABN*(09/19/15 Microcyte) 7:03 AM) [facility] UptownKwrrklnJXRAQHEJNB8694-74-81 13:03:00 Test Item Value Reference Range Interpretation Comments Basophils # (test code 0.1 See_Comment [Aut omated message] The = Basophils #) system which generated this result tra nsmitted reference range : <=0.2. The reference r kat was not used to int erpret this result as normal/abnormal . [facility] UptownOthsijuGWNXCEXHEG2124-81-78 13:03:00 Test Item Value Reference Range Interpretation Comments Monocytes (test code = Monocytes) 10.4 2.0-12.0 [facility] UptownEeenxbpWGBNTVDEBH6746-97-79 13:03:00 Test Item Value Reference Range Interpretation Comments Lymphocytes (test code = Lymphocytes) 35.3 20.0-40.0 [facility] UptownTaplvuaZFFMUGLUWV6392-16-52 13:03:00 Test Item Value Reference Range Interpretation Comments Segs (test code = Segs) 50.8 45.0-75.0 [facility] UptownMiwofgpJBSMIBGTUP2752-98-39 13:03:00 Test Item Value Reference Range Interpretation Comments MCHC (test code = MCHC) 30.5 32.0-36.0 [facility] UptownIosyfasGDYGLXZEBV1689-30-74 13:03:00 Test Item Value Reference Range Interpretation Comments Platelet (test code = Platelet) 175 133-450 [facility]ownEldvvdxXTJKDRELRG0984-96-39 13:03:00 Test Item Value Reference Range Interpretation Comments RDW (test code = RDW) 17.1 11.5-14.5 [facility]ownRcvqajjRZPYFGNDAZ3322-08-91 13:03:00 Test Item Value Reference Range Interpretation Comments MCV (test code = MCV) 78.4 80.0-98.0 [facility]ownCvmglquRNBNWSDBDN6990-06-59 13:03:00 Test Item Value Reference Range Interpretation Comments MCH (test code = MCH) 24.0 pg 27.0-31.0 [facility]ptownTaylnicVHFKPMPHXZ6803-41-54 13:03:00 Test Item Value Reference Range Interpretation Comments RBC (test code = RBC) 5.15 4.20-5.40 [facility]ptownIdfqervIWUIFHVUZP0436-77-48 13:03:00 Test Item Value Reference Range Interpretation Comments Hct (test code = Hct) 40.4 36.0-48.0 [facility]ptownZomggafXJKYDFRKXZ2716-26-57 13:03:00 Test Item Value Reference Range Interpretation Comments WBC (test code = WBC) 6.5 3.7-10.4 [facility]ptownDojazfxSIQFZECVUM1140-76-15 13:03:00 Test Item Value Reference Range Interpretation Comments MPV (test code = MPV) 10.2 7.4-10.4 [facility]ptownJrhogqzEPCOVVWYOE5874-95-43 13:03:00 Test Item Value Reference Range Interpretation Comments Hgb (test code = Hgb) 12.3 12.0-16.0 [facility]2016-01-21 13:03:00 Test Item Value Reference Range Interpretation Comments Magnesium Lvl (test code = Magnesium 1.9 1.8-2.4 Lvl) [facility]2016-01-21 13:03:00 Test Item Value Reference Range Interpretation Comments eGFR (test code = eGFR) 127 [facility]2016-01-21 13:03:00 Test Item Value Reference Range Interpretation Comments Creatinine Lvl (test code = Creatinine 0.60 0.50-1.40 Lvl) [facility]2016-01-21 13:03:00 Test Item Value Reference Range Interpretation Comments Glucose Lvl (test code = Glucose Lvl) 82 70-99 [facility]2016-01-21 13:03:00 Test Item Value Reference Range Interpretation Comments BUN (test code = BUN) 7 7-22 [facility]2016-01-21 13:03:00 Test Item Value Reference Range Interpretation Comments Potassium Lvl (test code = Potassium 4.1 3.5-5.1 Lvl) [facility]2016-01-21 13:03:00 Test Item Value Reference Range Interpretation Comments Sodium Lvl (test code = Sodium Lvl) 141 135-145 [facility]2016-01-21 13:03:00 Test Item Value Reference Range Interpretation Comments Chloride Lvl (test code = Chloride Lvl) 108 95-109 [facility]2016-01-21 13:03:00 Test Item Value Reference Range Interpretation Comments CO2 (test code = CO2) 20 24-32 [facility]2016-01-21 13:03:00 Test Item Value Reference Range Interpretation Comments Calcium Lvl (test code = Calcium Lvl) 8.9 8.5-10.5 [facility]2016-01-21 13:03:00 Test Item Value Reference Range Interpretation Comments AGAP (test code = AGAP) 17.1 10.0-20.0 [facility]ptownVzjuthmELUSQYLYEL4757-48-51 13:03:00 Test Item Value Reference Range Interpretation Comments Lymphocytes # (test code = Lymphocytes 2.3 1.0-5.5 #) [facility]ptownTawwwonQXXJJGSLMR8604-13-34 13:03:00 Test Item Value Reference Range Interpretation Comments Basophils (test code = 1.0 See_Comment [Aut omated message] The Basophils) system which ge nerated this result tra nsmitted reference range : <=1.0. The reference r kat was not used to int erpret this result as normal/abnormal . [facility]ownCuxpvuzVTXBTBZYFQ8024-52-67 13:03:00 Test Item Value Reference Range Interpretation Comments Segs-Bands # (test code = Segs-Bands #) 3.3 1.5-8.1 [facility]ownSvtqxjqKLVHUYOOAJ9876-09-19 13:03:00 Test Item Value Reference Range Interpretation Comments Eosinophils (test code = 2.5 See_Comment [A utomated message] The Eosinophils) system which ge nerated this result tra nsmitted reference range : <=4.0. The reference r kat was not used to int erpret this result as normal/abnormal . [facility]ownNuykwcqCDMXNBNWRD2235-13-15 13:03:00 Test Item Value Reference Range Interpretation Comments Eosinophils # (test code 0.2 See_Comment [A utomated message] The = Eosinophils #) system whic h generated this result tra nsmitted reference range : <=0.5. The reference r kat was not used to int erpret this result as normal/abnormal . [facility]ownGxtwocsDSHIKEAWYV6327-90-15 13:03:00 Test Item Value Reference Range Interpretation Comments Monocytes # (test code 0.7 See_Comment [Aut omated message] The = Monocytes #) system which generated this result tra nsmitted reference range : <=0.8. The reference r kat was not used to int erpret this result as normal/abnormal . [facility]ownWejtejsRBXOAGVOKT7109-52-55 13:03:00 Test Item Value Reference Range Interpretation Comments Microcyte (test code = 1+ *ABN*(09/19/15 Microcyte) 7:03 AM) [facility]ownNdpewadFTNUAPIFVX6000-05-62 13:03:00 Test Item Value Reference Range Interpretation Comments Basophils # (test code 0.1 See_Comment [Aut omated message] The = Basophils #) system which generated this result tra nsmitted reference range : <=0.2. The reference r kat was not used to int erpret this result as normal/abnormal . [facility]ownLzvzsvqSTMIIDVYAV8919-95-55 13:03:00 Test Item Value Reference Range Interpretation Comments Monocytes (test code = Monocytes) 10.4 2.0-12.0 [facility]ptownJrmifprSHFRRHICVL4055-95-94 13:03:00 Test Item Value Reference Range Interpretation Comments Lymphocytes (test code = Lymphocytes) 35.3 20.0-40.0 [facility]ptownHcwoyafMHANIVRSWT8949-43-06 13:03:00 Test Item Value Reference Range Interpretation Comments Segs (test code = Segs) 50.8 45.0-75.0 [facility]ownGytxnnpSRPMXQTALU9938-27-51 13:03:00 Test Item Value Reference Range Interpretation Comments MCHC (test code = MCHC) 30.5 32.0-36.0 [facility]ownHsidvsiYZLFQXJAWB0028-86-09 13:03:00 Test Item Value Reference Range Interpretation Comments Platelet (test code = Platelet) 175 133-450 [facility]ownHsuozgsSXVSNPPCZW0764-73-86 13:03:00 Test Item Value Reference Range Interpretation Comments RDW (test code = RDW) 17.1 11.5-14.5 [facility]ptownAvyvfeaYTKVKJCVAN6108-57-12 13:03:00 Test Item Value Reference Range Interpretation Comments MCV (test code = MCV) 78.4 80.0-98.0 [facility]ownOpkijdyHXIQKFCSQB8415-88-48 13:03:00 Test Item Value Reference Range Interpretation Comments MCH (test code = MCH) 24.0 pg 27.0-31.0 [facility]ptownAihkycnRQVRSXIPHQ4679-27-87 13:03:00 Test Item Value Reference Range Interpretation Comments RBC (test code = RBC) 5.15 4.20-5.40 [facility] UptownRnomeeyGSCTVUBZYB2737-30-36 13:03:00 Test Item Value Reference Range Interpretation Comments Hct (test code = Hct) 40.4 36.0-48.0 [facility] UptownUrsvgijVRTCUMRKDN0558-85-49 13:03:00 Test Item Value Reference Range Interpretation Comments WBC (test code = WBC) 6.5 3.7-10.4 [facility] UptownOjzhtlaWLVFNYPPOK0635-52-02 13:03:00 Test Item Value Reference Range Interpretation Comments MPV (test code = MPV) 10.2 7.4-10.4 [facility] UptownNdzjsndGORGCIDDFO1273-93-80 13:03:00 Test Item Value Reference Range Interpretation Comments Hgb (test code = Hgb) 12.3 12.0-16.0 [facility]2016-01-21 13:03:00 Test Item Value Reference Range Interpretation Comments Magnesium Lvl (test code = Magnesium 1.9 1.8-2.4 Lvl) [facility]2016-01-21 13:03:00 Test Item Value Reference Range Interpretation Comments eGFR (test code = eGFR) 127 [facility]2016-01-21 13:03:00 Test Item Value Reference Range Interpretation Comments Creatinine Lvl (test code = Creatinine 0.60 0.50-1.40 Lvl) [facility]2016-01-21 13:03:00 Test Item Value Reference Range Interpretation Comments Glucose Lvl (test code = Glucose Lvl) 82 70-99 [facility]2016-01-21 13:03:00 Test Item Value Reference Range Interpretation Comments BUN (test code = BUN) 7 7-22 [facility]2016-01-21 13:03:00 Test Item Value Reference Range Interpretation Comments Potassium Lvl (test code = Potassium 4.1 3.5-5.1 Lvl) [facility]2016-01-21 13:03:00 Test Item Value Reference Range Interpretation Comments Sodium Lvl (test code = Sodium Lvl) 141 135-145 [facility]2016-01-21 13:03:00 Test Item Value Reference Range Interpretation Comments Chloride Lvl (test code = Chloride Lvl) 108 95-109 [facility]2016-01-21 13:03:00 Test Item Value Reference Range Interpretation Comments CO2 (test code = CO2) 20 24-32 [facility]2016-01-21 13:03:00 Test Item Value Reference Range Interpretation Comments Calcium Lvl (test code = Calcium Lvl) 8.9 8.5-10.5 [facility]2016-01-21 13:03:00 Test Item Value Reference Range Interpretation Comments AGAP (test code = AGAP) 17.1 10.0-20.0 [facility]ownLyqrlhpQZJNORUQSJ5800-14-53 13:03:00 Test Item Value Reference Range Interpretation Comments Lymphocytes # (test code = Lymphocytes 2.3 1.0-5.5 #) [facility] UptownXvhilhtDWHWOSWPME9859-64-10 13:03:00 Test Item Value Reference Range Interpretation Comments Basophils (test code = 1.0 See_Comment [Aut omated message] The Basophils) system which ge nerated this result tra nsmitted reference range : <=1.0. The reference r kat was not used to int erpret this result as normal/abnormal . [facility]ptownPtsbdnxVSKNNSFOAD6003-85-74 13:03:00 Test Item Value Reference Range Interpretation Comments Segs-Bands # (test code = Segs-Bands #) 3.3 1.5-8.1 [facility]ptownIrgtxphYGQRJJIEBZ7772-68-45 13:03:00 Test Item Value Reference Range Interpretation Comments Eosinophils (test code = 2.5 See_Comment [A utomated message] The Eosinophils) system which ge nerated this result tra nsmitted reference range : <=4.0. The reference r kat was not used to int erpret this result as normal/abnormal . [facility] UptownXmnruivFLVFYILUSH3029-07-50 13:03:00 Test Item Value Reference Range Interpretation Comments Eosinophils # (test code 0.2 See_Comment [A utomated message] The = Eosinophils #) system whic h generated this result tra nsmitted reference range : <=0.5. The reference r kat was not used to int erpret this result as normal/abnormal . [facility]ownXnlunldEUNTSMGDPW8194-30-00 13:03:00 Test Item Value Reference Range Interpretation Comments Monocytes # (test code 0.7 See_Comment [Aut omated message] The = Monocytes #) system which generated this result tra nsmitted reference range : <=0.8. The reference r kat was not used to int erpret this result as normal/abnormal . [facility]ptownEvehardLHCPCUKOMR6094-81-85 13:03:00 Test Item Value Reference Range Interpretation Comments Microcyte (test code = 1+ *ABN*(09/19/15 Microcyte) 7:03 AM) [facility]ownDuawfsdZUOEWYRVFK3768-96-07 13:03:00 Test Item Value Reference Range Interpretation Comments Basophils # (test code 0.1 See_Comment [Aut omated message] The = Basophils #) system which generated this result tra nsmitted reference range : <=0.2. The reference r kat was not used to int erpret this result as normal/abnormal . [facility]ptownTarswreBQGPUXNOXG2528-87-89 13:03:00 Test Item Value Reference Range Interpretation Comments Monocytes (test code = Monocytes) 10.4 2.0-12.0 [facility] UptownYxjpipcBBECAPHMPN1432-17-26 13:03:00 Test Item Value Reference Range Interpretation Comments Lymphocytes (test code = Lymphocytes) 35.3 20.0-40.0 [facility]ptownCtqbgvgYRBNHGVLFJ8660-75-43 13:03:00 Test Item Value Reference Range Interpretation Comments Segs (test code = Segs) 50.8 45.0-75.0 [facility]ptownTidlzlgEIIYDAXKHM6806-51-63 13:03:00 Test Item Value Reference Range Interpretation Comments MCHC (test code = MCHC) 30.5 32.0-36.0 [facility]ptownCltiyplLSEIBNZAQC5851-68-22 13:03:00 Test Item Value Reference Range Interpretation Comments Platelet (test code = Platelet) 175 133-450 [facility]ptownCzklzvvXMIHIIQSRQ7802-75-22 13:03:00 Test Item Value Reference Range Interpretation Comments RDW (test code = RDW) 17.1 11.5-14.5 [facility]ptownLuydvbvPQAWLABHNG8326-50-67 13:03:00 Test Item Value Reference Range Interpretation Comments MCV (test code = MCV) 78.4 80.0-98.0 [facility]ptownDrvniapDFFQHWFTXZ4309-29-21 13:03:00 Test Item Value Reference Range Interpretation Comments MCH (test code = MCH) 24.0 pg 27.0-31.0 [facility]ptownFwopzogGKYEVTHKNU6899-97-43 13:03:00 Test Item Value Reference Range Interpretation Comments RBC (test code = RBC) 5.15 4.20-5.40 [facility]ptownGvtselxFZUKBKHZFL0558-46-74 13:03:00 Test Item Value Reference Range Interpretation Comments Hct (test code = Hct) 40.4 36.0-48.0 [facility]ptownWxfbzbjNULHQYENSZ5363-13-35 13:03:00 Test Item Value Reference Range Interpretation Comments WBC (test code = WBC) 6.5 3.7-10.4 [facility] UptownEtbyahaGRCDVJOMPG8034-03-24 13:03:00 Test Item Value Reference Range Interpretation Comments MPV (test code = MPV) 10.2 7.4-10.4 [facility]ptownSzijnesPYXIJSYZMN5716-47-96 13:03:00 Test Item Value Reference Range Interpretation Comments Hgb (test code = Hgb) 12.3 12.0-16.0 [facility]2016-01-21 13:03:00 Test Item Value Reference Range Interpretation Comments Magnesium Lvl (test code = Magnesium 1.9 1.8-2.4 Lvl) [facility]2016-01-21 13:03:00 Test Item Value Reference Range Interpretation Comments eGFR (test code = eGFR) 127 [facility]2016-01-21 13:03:00 Test Item Value Reference Range Interpretation Comments Creatinine Lvl (test code = Creatinine 0.60 0.50-1.40 Lvl) [facility]2016-01-21 13:03:00 Test Item Value Reference Range Interpretation Comments Glucose Lvl (test code = Glucose Lvl) 82 70-99 [facility]2016-01-21 13:03:00 Test Item Value Reference Range Interpretation Comments BUN (test code = BUN) 7 7-22 [facility]2016-01-21 13:03:00 Test Item Value Reference Range Interpretation Comments Potassium Lvl (test code = Potassium 4.1 3.5-5.1 Lvl) [facility]2016-01-21 13:03:00 Test Item Value Reference Range Interpretation Comments Sodium Lvl (test code = Sodium Lvl) 141 135-145 [facility]2016-01-21 13:03:00 Test Item Value Reference Range Interpretation Comments Chloride Lvl (test code = Chloride Lvl) 108 95-109 [facility]2016-01-21 13:03:00 Test Item Value Reference Range Interpretation Comments CO2 (test code = CO2) 20 24-32 [facility]2016-01-21 13:03:00 Test Item Value Reference Range Interpretation Comments Calcium Lvl (test code = Calcium Lvl) 8.9 8.5-10.5 [facility]2016-01-21 13:03:00 Test Item Value Reference Range Interpretation Comments AGAP (test code = AGAP) 17.1 10.0-20.0 [facility]ptownZnhuqfeNBNRRISYXE7593-08-26 13:03:00 Test Item Value Reference Range Interpretation Comments Lymphocytes # (test code = Lymphocytes 2.3 1.0-5.5 #) [facility]ownFisgzxnMTQFNVWIYK1818-85-74 13:03:00 Test Item Value Reference Range Interpretation Comments Basophils (test code = 1.0 See_Comment [Aut omated message] The Basophils) system which ge nerated this result tra nsmitted reference range : <=1.0. The reference r kat was not used to int erpret this result as normal/abnormal . [facility]ptownFpyravlPAHZWHDLCL9872-54-30 13:03:00 Test Item Value Reference Range Interpretation Comments Segs-Bands # (test code = Segs-Bands #) 3.3 1.5-8.1 [facility]ptownFghcuuuTFZWIMZODC1176-52-04 13:03:00 Test Item Value Reference Range Interpretation Comments Eosinophils (test code = 2.5 See_Comment [A utomated message] The Eosinophils) system which ge nerated this result tra nsmitted reference range : <=4.0. The reference r kat was not used to int erpret this result as normal/abnormal . [facility]ptownJbpzvyyYUIDNAYUKU3438-91-85 13:03:00 Test Item Value Reference Range Interpretation Comments Eosinophils # (test code 0.2 See_Comment [A utomated message] The = Eosinophils #) system whic h generated this result tra nsmitted reference range : <=0.5. The reference r kat was not used to int erpret this result as normal/abnormal . [facility]ownJvhjhxePZKYSCMZUG3887-46-36 13:03:00 Test Item Value Reference Range Interpretation Comments Monocytes # (test code 0.7 See_Comment [Aut omated message] The = Monocytes #) system which generated this result tra nsmitted reference range : <=0.8. The reference r kat was not used to int erpret this result as normal/abnormal . [facility]ptownGbzplbnVCSNGOZGTA5706-95-26 13:03:00 Test Item Value Reference Range Interpretation Comments Microcyte (test code = 1+ *ABN*(09/19/15 Microcyte) 7:03 AM) [facility]ptownCrvzoewYLFMBSINOP3439-69-10 13:03:00 Test Item Value Reference Range Interpretation Comments Basophils # (test code 0.1 See_Comment [Aut omated message] The = Basophils #) system which generated this result tra nsmitted reference range : <=0.2. The reference r kat was not used to int erpret this result as normal/abnormal . [facility]ownPorlwcnWLCZBISPUE0507-62-63 13:03:00 Test Item Value Reference Range Interpretation Comments Monocytes (test code = Monocytes) 10.4 2.0-12.0 [facility]ptownShrqeyiOOSVOOQYKP2993-65-10 13:03:00 Test Item Value Reference Range Interpretation Comments Lymphocytes (test code = Lymphocytes) 35.3 20.0-40.0 [facility] UptownOkceuctDGAOVXQJBO0043-45-00 13:03:00 Test Item Value Reference Range Interpretation Comments Segs (test code = Segs) 50.8 45.0-75.0 [facility]ptownPeoplvoIRBCOZZIXJ1901-90-41 13:03:00 Test Item Value Reference Range Interpretation Comments MCHC (test code = MCHC) 30.5 32.0-36.0 [facility]ptownXydhxnxDWQUVKNDIF6398-05-31 13:03:00 Test Item Value Reference Range Interpretation Comments Platelet (test code = Platelet) 175 133-450 [facility]ptownVkbmhioTRRXXKTRRL7242-53-69 13:03:00 Test Item Value Reference Range Interpretation Comments RDW (test code = RDW) 17.1 11.5-14.5 [facility]ptownUgmqmbkOLVDFUFWHX4701-98-67 13:03:00 Test Item Value Reference Range Interpretation Comments MCV (test code = MCV) 78.4 80.0-98.0 [facility]ptownGxczeuzOFWDXIBLRW9742-43-30 13:03:00 Test Item Value Reference Range Interpretation Comments MCH (test code = MCH) 24.0 pg 27.0-31.0 [facility]ptownKcrebfoXGUWQIWJBU3848-66-61 13:03:00 Test Item Value Reference Range Interpretation Comments RBC (test code = RBC) 5.15 4.20-5.40 [facility]ptownGfdtyrwZKZWMMAKXJ6037-66-39 13:03:00 Test Item Value Reference Range Interpretation Comments Hct (test code = Hct) 40.4 36.0-48.0 [facility]ptownErdspbeGLDRWCWJLO2019-55-53 13:03:00 Test Item Value Reference Range Interpretation Comments WBC (test code = WBC) 6.5 3.7-10.4 [facility]ptownLgfqqugIEOFDRFBLQ9598-03-99 13:03:00 Test Item Value Reference Range Interpretation Comments MPV (test code = MPV) 10.2 7.4-10.4 [facility]ownAqxuecvTLBFAKXYSJ2768-48-47 13:03:00 Test Item Value Reference Range Interpretation Comments Hgb (test code = Hgb) 12.3 12.0-16.0 [facility]2016-01-20 12:40:00 Test Item Value Reference Range Interpretation Comments eGFR (test code = eGFR) 129 [facility]2016-01-20 12:40:00 Test Item Value Reference Range Interpretation Comments Creatinine Lvl (test code = Creatinine 0.58 0.50-1.40 Lvl) [facility]2016-01-20 12:40:00 Test Item Value Reference Range Interpretation Comments CO2 (test code = CO2) 23 24-32 [facility]2016-01-20 12:40:00 Test Item Value Reference Range Interpretation Comments Chloride Lvl (test code = Chloride Lvl) 109 95-109 [facility]2016-01-20 12:40:00 Test Item Value Reference Range Interpretation Comments Calcium Lvl (test code = Calcium Lvl) 9.0 8.5-10.5 [facility]2016-01-20 12:40:00 Test Item Value Reference Range Interpretation Comments Potassium Lvl (test code = Potassium 3.7 3.5-5.1 Lvl) [facility]2016-01-20 12:40:00 Test Item Value Reference Range Interpretation Comments AGAP (test code = AGAP) 12.7 10.0-20.0 [facility]2016-01-20 12:40:00 Test Item Value Reference Range Interpretation Comments BUN (test code = BUN) 9 7-22 [facility]2016-01-20 12:40:00 Test Item Value Reference Range Interpretation Comments Sodium Lvl (test code = Sodium Lvl) 141 135-145 [facility]2016-01-20 12:40:00 Test Item Value Reference Range Interpretation Comments Glucose Lvl (test code = Glucose Lvl) 87 70-99 [facility]2016-01-20 12:40:00 Test Item Value Reference Range Interpretation Comments eGFR (test code = eGFR) 129 [facility]2016-01-20 12:40:00 Test Item Value Reference Range Interpretation Comments Creatinine Lvl (test code = Creatinine 0.58 0.50-1.40 Lvl) [facility]2016-01-20 12:40:00 Test Item Value Reference Range Interpretation Comments CO2 (test code = CO2) 23 24-32 [facility]2016-01-20 12:40:00 Test Item Value Reference Range Interpretation Comments Chloride Lvl (test code = Chloride Lvl) 109 95-109 [facility]2016-01-20 12:40:00 Test Item Value Reference Range Interpretation Comments Calcium Lvl (test code = Calcium Lvl) 9.0 8.5-10.5 [facility] [place]2016-01-20 12:40:00 Test Item Value Reference Range Interpretation Comments Potassium Lvl (test code = Potassium 3.7 3.5-5.1 Lvl) [facility] [place]2016-01-20 12:40:00 Test Item Value Reference Range Interpretation Comments AGAP (test code = AGAP) 12.7 10.0-20.0 [facility] [place]2016-01-20 12:40:00 Test Item Value Reference Range Interpretation Comments BUN (test code = BUN) 9 - [facility] [place]2016-01-20 12:40:00 Test Item Value Reference Range Interpretation Comments Sodium Lvl (test code = Sodium Lvl) 141 135-145 [facility] [place]2016-01-20 12:40:00 Test Item Value Reference Range Interpretation Comments Glucose Lvl (test code = Glucose Lvl) 87 70-99 [facility] [place]2016-01-20 12:40:00 Test Item Value Reference Range Interpretation Comments eGFR (test code = eGFR) 129 [facility] [place]2016-01-20 12:40:00 Test Item Value Reference Range Interpretation Comments Creatinine Lvl (test code = Creatinine 0.58 0.50-1.40 Lvl) [facility] [place]2016-01-20 12:40:00 Test Item Value Reference Range Interpretation Comments CO2 (test code = CO2) 23 24-32 [facility] [place]2016-01-20 12:40:00 Test Item Value Reference Range Interpretation Comments Chloride Lvl (test code = Chloride Lvl) 109 95-109 [facility] [place]2016-01-20 12:40:00 Test Item Value Reference Range Interpretation Comments Calcium Lvl (test code = Calcium Lvl) 9.0 8.5-10.5 [facility] [place]2016-01-20 12:40:00 Test Item Value Reference Range Interpretation Comments Potassium Lvl (test code = Potassium 3.7 3.5-5.1 Lvl) [facility] [place]2016-01-20 12:40:00 Test Item Value Reference Range Interpretation Comments AGAP (test code = AGAP) 12.7 10.0-20.0 [facility] [place]2016-01-20 12:40:00 Test Item Value Reference Range Interpretation Comments BUN (test code = BUN) 9 - [facility] [place]2016-01-20 12:40:00 Test Item Value Reference Range Interpretation Comments Sodium Lvl (test code = Sodium Lvl) 141 135-145 [facility] [place]2016-01-20 12:40:00 Test Item Value Reference Range Interpretation Comments Glucose Lvl (test code = Glucose Lvl) 87 70-99 [facility] [place]2016-01-20 12:40:00 Test Item Value Reference Range Interpretation Comments eGFR (test code = eGFR) 129 [facility] [place]2016-01-20 12:40:00 Test Item Value Reference Range Interpretation Comments Creatinine Lvl (test code = Creatinine 0.58 0.50-1.40 Lvl) [facility] [place]2016-01-20 12:40:00 Test Item Value Reference Range Interpretation Comments CO2 (test code = CO2) 23 24-32 [facility] [place]2016-01-20 12:40:00 Test Item Value Reference Range Interpretation Comments Chloride Lvl (test code = Chloride Lvl) 109 95-109 [facility] [place]2016-01-20 12:40:00 Test Item Value Reference Range Interpretation Comments Calcium Lvl (test code = Calcium Lvl) 9.0 8.5-10.5 [facility] [place]2016-01-20 12:40:00 Test Item Value Reference Range Interpretation Comments Potassium Lvl (test code = Potassium 3.7 3.5-5.1 Lvl) [facility] [place]2016-01-20 12:40:00 Test Item Value Reference Range Interpretation Comments AGAP (test code = AGAP) 12.7 10.0-20.0 [facility] [place]2016-01-20 12:40:00 Test Item Value Reference Range Interpretation Comments BUN (test code = BUN) 9 7-22 [facility] [place]2016-01-20 12:40:00 Test Item Value Reference Range Interpretation Comments Sodium Lvl (test code = Sodium Lvl) 141 135-145 [facility] [place]2016-01-20 12:40:00 Test Item Value Reference Range Interpretation Comments Glucose Lvl (test code = Glucose Lvl) 87 70-99 [facility] [place]2016-01-20 12:40:00 Test Item Value Reference Range Interpretation Comments eGFR (test code = eGFR) 129 [facility] [place]2016-01-20 12:40:00 Test Item Value Reference Range Interpretation Comments Creatinine Lvl (test code = Creatinine 0.58 0.50-1.40 Lvl) [facility] [place]2016-01-20 12:40:00 Test Item Value Reference Range Interpretation Comments CO2 (test code = CO2) 23 24-32 [facility] [place]2016-01-20 12:40:00 Test Item Value Reference Range Interpretation Comments Chloride Lvl (test code = Chloride Lvl) 109 95-109 [facility] [place]2016-01-20 12:40:00 Test Item Value Reference Range Interpretation Comments Calcium Lvl (test code = Calcium Lvl) 9.0 8.5-10.5 [facility] [place]2016-01-20 12:40:00 Test Item Value Reference Range Interpretation Comments Potassium Lvl (test code = Potassium 3.7 3.5-5.1 Lvl) [facility] [place]2016-01-20 12:40:00 Test Item Value Reference Range Interpretation Comments AGAP (test code = AGAP) 12.7 10.0-20.0 [facility] [place]2016-01-20 12:40:00 Test Item Value Reference Range Interpretation Comments BUN (test code = BUN) 9 7-22 [facility] [place]2016-01-20 12:40:00 Test Item Value Reference Range Interpretation Comments Sodium Lvl (test code = Sodium Lvl) 141 135-145 [facility] [place]2016-01-20 12:40:00 Test Item Value Reference Range Interpretation Comments Glucose Lvl (test code = Glucose Lvl) 87 70-99 [facility] [place]2016-01-20 12:40:00 Test Item Value Reference Range Interpretation Comments eGFR (test code = eGFR) 129 [facility] [place]2016-01-20 12:40:00 Test Item Value Reference Range Interpretation Comments Creatinine Lvl (test code = Creatinine 0.58 0.50-1.40 Lvl) [facility] [place]2016-01-20 12:40:00 Test Item Value Reference Range Interpretation Comments CO2 (test code = CO2) 23 24-32 [facility] [place]2016-01-20 12:40:00 Test Item Value Reference Range Interpretation Comments Chloride Lvl (test code = Chloride Lvl) 109 95-109 [facility] [place]2016-01-20 12:40:00 Test Item Value Reference Range Interpretation Comments Calcium Lvl (test code = Calcium Lvl) 9.0 8.5-10.5 [facility] [place]2016-01-20 12:40:00 Test Item Value Reference Range Interpretation Comments Potassium Lvl (test code = Potassium 3.7 3.5-5.1 Lvl) [facility] [place]2016-01-20 12:40:00 Test Item Value Reference Range Interpretation Comments AGAP (test code = AGAP) 12.7 10.0-20.0 [facility] [place]2016-01-20 12:40:00 Test Item Value Reference Range Interpretation Comments BUN (test code = BUN) 9 7- [facility] [place]2016-01-20 12:40:00 Test Item Value Reference Range Interpretation Comments Sodium Lvl (test code = Sodium Lvl) 141 135-145 [facility] [place]2016-01-20 12:40:00 Test Item Value Reference Range Interpretation Comments Glucose Lvl (test code = Glucose Lvl) 87 70-99 [facility] [place]2016-01-20 12:40:00 Test Item Value Reference Range Interpretation Comments eGFR (test code = eGFR) 129 [facility] [place]2016-01-20 12:40:00 Test Item Value Reference Range Interpretation Comments Creatinine Lvl (test code = Creatinine 0.58 0.50-1.40 Lvl) [facility] [place]2016-01-20 12:40:00 Test Item Value Reference Range Interpretation Comments CO2 (test code = CO2) 23 24-32 [facility] [place]2016-01-20 12:40:00 Test Item Value Reference Range Interpretation Comments Chloride Lvl (test code = Chloride Lvl) 109 95-109 [facility] [place]2016-01-20 12:40:00 Test Item Value Reference Range Interpretation Comments Calcium Lvl (test code = Calcium Lvl) 9.0 8.5-10.5 [facility] [place]2016-01-20 12:40:00 Test Item Value Reference Range Interpretation Comments Potassium Lvl (test code = Potassium 3.7 3.5-5.1 Lvl) [facility] [place]2016-01-20 12:40:00 Test Item Value Reference Range Interpretation Comments AGAP (test code = AGAP) 12.7 10.0-20.0 [facility] [place]2016-01-20 12:40:00 Test Item Value Reference Range Interpretation Comments BUN (test code = BUN) 9 7-22 [facility] [place]2016-01-20 12:40:00 Test Item Value Reference Range Interpretation Comments Sodium Lvl (test code = Sodium Lvl) 141 135-145 [facility] [place]2016-01-20 12:40:00 Test Item Value Reference Range Interpretation Comments Glucose Lvl (test code = Glucose Lvl) 87 70- [facility] [place]2016-01-20 12:40:00 Test Item Value Reference Range Interpretation Comments eGFR (test code = eGFR) 129 [facility] [place]2016-01-20 12:40:00 Test Item Value Reference Range Interpretation Comments Creatinine Lvl (test code = Creatinine 0.58 0.50-1.40 Lvl) [facility] [place]2016-01-20 12:40:00 Test Item Value Reference Range Interpretation Comments CO2 (test code = CO2) 23 24-32 [facility] [place]2016-01-20 12:40:00 Test Item Value Reference Range Interpretation Comments Chloride Lvl (test code = Chloride Lvl) 109 95-109 [facility] [place]2016-01-20 12:40:00 Test Item Value Reference Range Interpretation Comments Calcium Lvl (test code = Calcium Lvl) 9.0 8.5-10.5 [facility] [place]2016-01-20 12:40:00 Test Item Value Reference Range Interpretation Comments Potassium Lvl (test code = Potassium 3.7 3.5-5.1 Lvl) [facility] [place]2016-01-20 12:40:00 Test Item Value Reference Range Interpretation Comments AGAP (test code = AGAP) 12.7 10.0-20.0 [facility] [place]2016-01-20 12:40:00 Test Item Value Reference Range Interpretation Comments BUN (test code = BUN) 9 7-22 [facility] [place]2016-01-20 12:40:00 Test Item Value Reference Range Interpretation Comments Sodium Lvl (test code = Sodium Lvl) 141 135-145 [facility] [place]2016-01-20 12:40:00 Test Item Value Reference Range Interpretation Comments Glucose Lvl (test code = Glucose Lvl) 87 70-99 [facility] [place]2016-01-20 12:40:00 Test Item Value Reference Range Interpretation Comments eGFR (test code = eGFR) 129 [facility] [place]2016-01-20 12:40:00 Test Item Value Reference Range Interpretation Comments Creatinine Lvl (test code = Creatinine 0.58 0.50-1.40 Lvl) [facility] [place]2016-01-20 12:40:00 Test Item Value Reference Range Interpretation Comments CO2 (test code = CO2) 23 - [facility] [place]2016-01-20 12:40:00 Test Item Value Reference Range Interpretation Comments Chloride Lvl (test code = Chloride Lvl) 109 95-109 [facility] [place]2016-01-20 12:40:00 Test Item Value Reference Range Interpretation Comments Calcium Lvl (test code = Calcium Lvl) 9.0 8.5-10.5 [facility] [place]2016-01-20 12:40:00 Test Item Value Reference Range Interpretation Comments Potassium Lvl (test code = Potassium 3.7 3.5-5.1 Lvl) [facility] [place]2016-01-20 12:40:00 Test Item Value Reference Range Interpretation Comments AGAP (test code = AGAP) 12.7 10.0-20.0 [facility] [place]2016-01-20 12:40:00 Test Item Value Reference Range Interpretation Comments BUN (test code = BUN) 9 7-22 [facility] [place]2016-01-20 12:40:00 Test Item Value Reference Range Interpretation Comments Sodium Lvl (test code = Sodium Lvl) 141 135-145 [facility] [place]2016-01-20 12:40:00 Test Item Value Reference Range Interpretation Comments Glucose Lvl (test code = Glucose Lvl) 87 70-99 [facility] [place]2016-01-20 12:40:00 Test Item Value Reference Range Interpretation Comments eGFR (test code = eGFR) 129 [facility] [place]2016-01-20 12:40:00 Test Item Value Reference Range Interpretation Comments Creatinine Lvl (test code = Creatinine 0.58 0.50-1.40 Lvl) [facility] [place]2016-01-20 12:40:00 Test Item Value Reference Range Interpretation Comments CO2 (test code = CO2) 23 - [facility] [place]2016-01-20 12:40:00 Test Item Value Reference Range Interpretation Comments Chloride Lvl (test code = Chloride Lvl) 109 95-109 [facility] [place]2016-01-20 12:40:00 Test Item Value Reference Range Interpretation Comments Calcium Lvl (test code = Calcium Lvl) 9.0 8.5-10.5 [facility] [place]2016-01-20 12:40:00 Test Item Value Reference Range Interpretation Comments Potassium Lvl (test code = Potassium 3.7 3.5-5.1 Lvl) [facility] [place]2016-01-20 12:40:00 Test Item Value Reference Range Interpretation Comments AGAP (test code = AGAP) 12.7 10.0-20.0 [facility] [place]2016-01-20 12:40:00 Test Item Value Reference Range Interpretation Comments BUN (test code = BUN) 9 7-22 [facility] [place]2016-01-20 12:40:00 Test Item Value Reference Range Interpretation Comments Sodium Lvl (test code = Sodium Lvl) 141 135-145 [facility] [place]2016-01-20 12:40:00 Test Item Value Reference Range Interpretation Comments Glucose Lvl (test code = Glucose Lvl) 87 70-99 [facility] [place]2016-01-20 12:40:00 Test Item Value Reference Range Interpretation Comments eGFR (test code = eGFR) 129 [facility] [place]2016-01-20 12:40:00 Test Item Value Reference Range Interpretation Comments Creatinine Lvl (test code = Creatinine 0.58 0.50-1.40 Lvl) [facility] [place]2016-01-20 12:40:00 Test Item Value Reference Range Interpretation Comments CO2 (test code = CO2) 23 24-32 [facility] [place]2016-01-20 12:40:00 Test Item Value Reference Range Interpretation Comments Chloride Lvl (test code = Chloride Lvl) 109 95-109 [facility] [place]2016-01-20 12:40:00 Test Item Value Reference Range Interpretation Comments Calcium Lvl (test code = Calcium Lvl) 9.0 8.5-10.5 [facility] [place]2016-01-20 12:40:00 Test Item Value Reference Range Interpretation Comments Potassium Lvl (test code = Potassium 3.7 3.5-5.1 Lvl) [facility] [place]2016-01-20 12:40:00 Test Item Value Reference Range Interpretation Comments AGAP (test code = AGAP) 12.7 10.0-20.0 [facility] [place]2016-01-20 12:40:00 Test Item Value Reference Range Interpretation Comments BUN (test code = BUN) 9 7- [facility] [place]2016-01-20 12:40:00 Test Item Value Reference Range Interpretation Comments Sodium Lvl (test code = Sodium Lvl) 141 135-145 [facility] [place]2016-01-20 12:40:00 Test Item Value Reference Range Interpretation Comments Glucose Lvl (test code = Glucose Lvl) 87 70- [facility] [place]2016-01-20 12:40:00 Test Item Value Reference Range Interpretation Comments eGFR (test code = eGFR) 129 [facility] [place]2016-01-20 12:40:00 Test Item Value Reference Range Interpretation Comments Creatinine Lvl (test code = Creatinine 0.58 0.50-1.40 Lvl) [facility] [place]2016-01-20 12:40:00 Test Item Value Reference Range Interpretation Comments CO2 (test code = CO2) 23 24-32 [facility] [place]2016-01-20 12:40:00 Test Item Value Reference Range Interpretation Comments Chloride Lvl (test code = Chloride Lvl) 109 95-109 [facility] [place]2016-01-20 12:40:00 Test Item Value Reference Range Interpretation Comments Calcium Lvl (test code = Calcium Lvl) 9.0 8.5-10.5 [facility] [place]2016-01-20 12:40:00 Test Item Value Reference Range Interpretation Comments Potassium Lvl (test code = Potassium 3.7 3.5-5.1 Lvl) [facility] [place]2016-01-20 12:40:00 Test Item Value Reference Range Interpretation Comments AGAP (test code = AGAP) 12.7 10.0-20.0 [facility] [place]2016-01-20 12:40:00 Test Item Value Reference Range Interpretation Comments BUN (test code = BUN) 9 - [facility] [place]2016-01-20 12:40:00 Test Item Value Reference Range Interpretation Comments Sodium Lvl (test code = Sodium Lvl) 141 135-145 [facility] [place]2016-01-20 12:40:00 Test Item Value Reference Range Interpretation Comments Glucose Lvl (test code = Glucose Lvl) 87 70-99 [facility] [place]2016-01-20 12:40:00 Test Item Value Reference Range Interpretation Comments eGFR (test code = eGFR) 129 [facility] [place]2016-01-20 12:40:00 Test Item Value Reference Range Interpretation Comments Creatinine Lvl (test code = Creatinine 0.58 0.50-1.40 Lvl) [facility] [place]2016-01-20 12:40:00 Test Item Value Reference Range Interpretation Comments CO2 (test code = CO2) [facility] [place]2016-01-20 12:40:00 Test Item Value Reference Range Interpretation Comments Chloride Lvl (test code = Chloride Lvl) 109 95-109 [facility] [place]2016-01-20 12:40:00 Test Item Value Reference Range Interpretation Comments Calcium Lvl (test code = Calcium Lvl) 9.0 8.5-10.5 [facility] [place]2016-01-20 12:40:00 Test Item Value Reference Range Interpretation Comments Potassium Lvl (test code = Potassium 3.7 3.5-5.1 Lvl) [facility] [place]2016-01-20 12:40:00 Test Item Value Reference Range Interpretation Comments AGAP (test code = AGAP) 12.7 10.0-20.0 [facility] [place]2016-01-20 12:40:00 Test Item Value Reference Range Interpretation Comments BUN (test code = BUN) 9 7-22 [facility] [place]2016-01-20 12:40:00 Test Item Value Reference Range Interpretation Comments Sodium Lvl (test code = Sodium Lvl) 141 135-145 [facility] [place]2016-01-20 12:40:00 Test Item Value Reference Range Interpretation Comments Glucose Lvl (test code = Glucose Lvl) 87 70-99 [facility] [place]2016-01-20 12:40:00 Test Item Value Reference Range Interpretation Comments eGFR (test code = eGFR) 129 [facility] [place]2016-01-20 12:40:00 Test Item Value Reference Range Interpretation Comments Creatinine Lvl (test code = Creatinine 0.58 0.50-1.40 Lvl) [facility] [place]2016-01-20 12:40:00 Test Item Value Reference Range Interpretation Comments CO2 (test code = CO2) - [facility] [place]2016-01-20 12:40:00 Test Item Value Reference Range Interpretation Comments Chloride Lvl (test code = Chloride Lvl) 109 95-109 [facility] [place]2016-01-20 12:40:00 Test Item Value Reference Range Interpretation Comments Calcium Lvl (test code = Calcium Lvl) 9.0 8.5-10.5 [facility] [place]2016-01-20 12:40:00 Test Item Value Reference Range Interpretation Comments Potassium Lvl (test code = Potassium 3.7 3.5-5.1 Lvl) [facility] [place]2016-01-20 12:40:00 Test Item Value Reference Range Interpretation Comments AGAP (test code = AGAP) 12.7 10.0-20.0 [facility] [place]2016-01-20 12:40:00 Test Item Value Reference Range Interpretation Comments BUN (test code = BUN) 9 - [facility] [place]2016-01-20 12:40:00 Test Item Value Reference Range Interpretation Comments Sodium Lvl (test code = Sodium Lvl) 141 135-145 [facility] [place]2016-01-20 12:40:00 Test Item Value Reference Range Interpretation Comments Glucose Lvl (test code = Glucose Lvl) 87 70-99 [facility] [place]2016-01-20 12:40:00 Test Item Value Reference Range Interpretation Comments eGFR (test code = eGFR) 129 [facility] [place]2016-01-20 12:40:00 Test Item Value Reference Range Interpretation Comments Creatinine Lvl (test code = Creatinine 0.58 0.50-1.40 Lvl) [facility] [place]2016-01-20 12:40:00 Test Item Value Reference Range Interpretation Comments CO2 (test code = CO2) 23 24-32 [facility] [place]2016-01-20 12:40:00 Test Item Value Reference Range Interpretation Comments Chloride Lvl (test code = Chloride Lvl) 109 95-109 [facility] [place]2016-01-20 12:40:00 Test Item Value Reference Range Interpretation Comments Calcium Lvl (test code = Calcium Lvl) 9.0 8.5-10.5 [facility] [place]2016-01-20 12:40:00 Test Item Value Reference Range Interpretation Comments Potassium Lvl (test code = Potassium 3.7 3.5-5.1 Lvl) [facility] [place]2016-01-20 12:40:00 Test Item Value Reference Range Interpretation Comments AGAP (test code = AGAP) 12.7 10.0-20.0 [facility] [place]2016-01-20 12:40:00 Test Item Value Reference Range Interpretation Comments BUN (test code = BUN) 9 7-22 [facility] [place]2016-01-20 12:40:00 Test Item Value Reference Range Interpretation Comments Sodium Lvl (test code = Sodium Lvl) 141 135-145 [facility] [place]2016-01-20 12:40:00 Test Item Value Reference Range Interpretation Comments Glucose Lvl (test code = Glucose Lvl) 87 70-99 [facility] [place]2016-01-20 12:40:00 Test Item Value Reference Range Interpretation Comments eGFR (test code = eGFR) 129 [facility] [place]2016-01-20 12:40:00 Test Item Value Reference Range Interpretation Comments Creatinine Lvl (test code = Creatinine 0.58 0.50-1.40 Lvl) [facility] [place]2016-01-20 12:40:00 Test Item Value Reference Range Interpretation Comments CO2 (test code = CO2) 23 24-32 [facility] [place]2016-01-20 12:40:00 Test Item Value Reference Range Interpretation Comments Chloride Lvl (test code = Chloride Lvl) 109 95-109 [facility] [place]2016-01-20 12:40:00 Test Item Value Reference Range Interpretation Comments Calcium Lvl (test code = Calcium Lvl) 9.0 8.5-10.5 [facility] [place]2016-01-20 12:40:00 Test Item Value Reference Range Interpretation Comments Potassium Lvl (test code = Potassium 3.7 3.5-5.1 Lvl) [facility] [place]2016-01-20 12:40:00 Test Item Value Reference Range Interpretation Comments AGAP (test code = AGAP) 12.7 10.0-20.0 [facility] [place]2016-01-20 12:40:00 Test Item Value Reference Range Interpretation Comments BUN (test code = BUN) 9 7-22 [facility] [place]2016-01-20 12:40:00 Test Item Value Reference Range Interpretation Comments Sodium Lvl (test code = Sodium Lvl) 141 135-145 [facility] [place]2016-01-20 12:40:00 Test Item Value Reference Range Interpretation Comments Glucose Lvl (test code = Glucose Lvl) 87 70- [facility] [place]2016-01-20 12:40:00 Test Item Value Reference Range Interpretation Comments eGFR (test code = eGFR) 129 [facility] [place]2016-01-20 12:40:00 Test Item Value Reference Range Interpretation Comments Creatinine Lvl (test code = Creatinine 0.58 0.50-1.40 Lvl) [facility] [place]2016-01-20 12:40:00 Test Item Value Reference Range Interpretation Comments CO2 (test code = CO2) 23 24-32 [facility] [place]2016-01-20 12:40:00 Test Item Value Reference Range Interpretation Comments Chloride Lvl (test code = Chloride Lvl) 109 95-109 [facility] [place]2016-01-20 12:40:00 Test Item Value Reference Range Interpretation Comments Calcium Lvl (test code = Calcium Lvl) 9.0 8.5-10.5 [facility] [place]2016-01-20 12:40:00 Test Item Value Reference Range Interpretation Comments Potassium Lvl (test code = Potassium 3.7 3.5-5.1 Lvl) [facility] [place]2016-01-20 12:40:00 Test Item Value Reference Range Interpretation Comments AGAP (test code = AGAP) 12.7 10.0-20.0 [facility] [place]2016-01-20 12:40:00 Test Item Value Reference Range Interpretation Comments BUN (test code = BUN) 9 7-22 [facility] [place]2016-01-20 12:40:00 Test Item Value Reference Range Interpretation Comments Sodium Lvl (test code = Sodium Lvl) 141 135-145 [facility] [place]2016-01-20 12:40:00 Test Item Value Reference Range Interpretation Comments Glucose Lvl (test code = Glucose Lvl) 87 70-99 [facility]2016-01-20 05:30:00 Test Item Value Reference Range Interpretation Comments UA Urobilinogen (test code = UA <=1.0 mg/dL 0.1-1.0 Urobilinogen) [facility]2016-01-20 05:30:00 Test Item Value Reference Range Interpretation Comments UA Color (test code = UA Color) [facility] [id number] 05:30:00 Test Item Value Reference Range Interpretation Comments UA Bacteria (test code = UA Many /HPF Bacteria) [facility] [id number] 05:30:00 Test Item Value Reference Range Interpretation Comments UA Mucus (test code = UA Mucus) Many /LPF [facility] [id number] 05:30:00 Test Item Value Reference Range Interpretation Comments UA Leuk Est (test code Large *ABN*(09/17/15 = UA Leuk Est) 11:30 PM) [facility] [id number] 05:30:00 Test Item Value Reference Range Interpretation Comments UA Sq Epi (test code = UA Sq Epi) Many /LPF [facility] [id number] 05:30:00 Test Item Value Reference Range Interpretation Comments UA Nitrite (test code Negative (09/17/15 11:30 = UA Nitrite) PM) [facility] [id number] 05:30:00 Test Item Value Reference Range Interpretation Comments UA WBC (test code = 16 See_Comment [Automa arvind message] The UA WBC) system which ge nerated this result transmit arvind reference range : <=5. The reference range was not used to interpr et this result as mario l/abnormal. [facility] AND [id number] 05:30:00 Test Item Value Reference Range Interpretation Comments UA RBC (test code = 5 See_Comment [Automa arvind message] The UA RBC) system which ge nerated this result transmit arvind reference range : <=2. The reference range was not used to interpr et this result as mario l/abnormal. [facility] [id number] 05:30:00 Test Item Value Reference Range Interpretation Comments UA Bili (test code = Negative *NA*(09/17/15 UA Bili) 11:30 PM) [facility] AND [id number] 05:30:00 Test Item Value Reference Range Interpretation Comments UA Blood (test code = Negative (09/17/15 11:30 UA Blood) PM) [facility] [id number] 05:30:00 Test Item Value Reference Range Interpretation Comments UA Glucose (test code = UA Negative mg/dL Glucose) [facility] AND [id number] 05:30:00 Test Item Value Reference Range Interpretation Comments UA Ketones (test code = UA Trace mg/dL Ketones) [facility] AND [id number] 05:30:00 Test Item Value Reference Range Interpretation Comments UA Protein (test code = UA Protein) 30 mg/dL [facility] AND [id number] 05:30:00 Test Item Value Reference Range Interpretation Comments UA pH (test code = UA pH) 5.0 5.0-8.0 [facility] AND [id number] 05:30:00 Test Item Value Reference Range Interpretation Comments UA Spec Grav (test code = UA Spec Grav) 1.030 [facility] AND [id number] 05:30:00 Test Item Value Reference Range Interpretation Comments UA Turbidity (test code Marked *ABN*(09/17/15 = UA Turbidity) 11:30 PM) [facility] [id number] 05:30:00 Test Item Value Reference Range Interpretation Comments U Preg (test code = U Negative (09/17/15 11:30 Preg) PM) [facility] AND [id number] 05:30:00 Test Item Value Reference Range Interpretation Comments UA Urobilinogen (test code = UA <=1.0 mg/dL 0.1-1.0 Urobilinogen) [facility] AND [id number] 05:30:00 Test Item Value Reference Range Interpretation Comments UA Color (test code = UA Color) Marry [facility] AND [id number] 05:30:00 Test Item Value Reference Range Interpretation Comments UA Bacteria (test code = UA Many /HPF Bacteria) [facility] AND [id number] 05:30:00 Test Item Value Reference Range Interpretation Comments UA Mucus (test code = UA Mucus) Many /LPF [facility] AND [id number] 05:30:00 Test Item Value Reference Range Interpretation Comments UA Leuk Est (test code Large *ABN*(09/17/15 = UA Leuk Est) 11:30 PM) [facility] AND [id number] 05:30:00 Test Item Value Reference Range Interpretation Comments UA Sq Epi (test code = UA Sq Epi) Many /LPF [facility] AND [id number] 05:30:00 Test Item Value Reference Range Interpretation Comments UA Nitrite (test code Negative (09/17/15 11:30 = UA Nitrite) PM) [facility] AND [id number] 05:30:00 Test Item Value Reference Range Interpretation Comments UA WBC (test code = 16 See_Comment [Automa arvind message] The UA WBC) system which ge nerated this result transmit arvind reference range : <=5. The reference range was not used to interpr et this result as mario l/abnormal. [facility] AND [id number] 05:30:00 Test Item Value Reference Range Interpretation Comments UA RBC (test code = 5 See_Comment [Automa arvind message] The UA RBC) system which ge nerated this result transmit arvind reference range : <=2. The reference range was not used to interpr et this result as mario l/abnormal. [facility] AND [id number] 05:30:00 Test Item Value Reference Range Interpretation Comments UA Bili (test code = Negative *NA*(09/17/15 UA Bili) 11:30 PM) [facility] AND [id number] 05:30:00 Test Item Value Reference Range Interpretation Comments UA Blood (test code = Negative (09/17/15 11:30 UA Blood) PM) [facility] AND [id number] 05:30:00 Test Item Value Reference Range Interpretation Comments UA Glucose (test code = UA Negative mg/dL Glucose) [facility] AND [id number] 05:30:00 Test Item Value Reference Range Interpretation Comments UA Ketones (test code = UA Trace mg/dL Ketones) [facility] AND [id number] 05:30:00 Test Item Value Reference Range Interpretation Comments UA Protein (test code = UA Protein) 30 mg/dL [facility] AND [id number] 05:30:00 Test Item Value Reference Range Interpretation Comments UA pH (test code = UA pH) 5.0 5.0-8.0 [facility] AND [id number] 05:30:00 Test Item Value Reference Range Interpretation Comments UA Spec Grav (test code = UA Spec Grav) 1.030 [facility] AND [id number] 05:30:00 Test Item Value Reference Range Interpretation Comments UA Turbidity (test code Marked *ABN*(09/17/15 = UA Turbidity) 11:30 PM) [facility] [id number] 05:30:00 Test Item Value Reference Range Interpretation Comments U Preg (test code = U Negative (09/17/15 11:30 Preg) PM) [facility] [id number] 05:30:00 Test Item Value Reference Range Interpretation Comments UA Urobilinogen (test code = UA <=1.0 mg/dL 0.1-1.0 Urobilinogen) [facility] AND [id number] 05:30:00 Test Item Value Reference Range Interpretation Comments UA Color (test code = UA Color) Marry [facility] AND [id number] 05:30:00 Test Item Value Reference Range Interpretation Comments UA Bacteria (test code = UA Many /HPF Bacteria) [facility] [id number] 05:30:00 Test Item Value Reference Range Interpretation Comments UA Mucus (test code = UA Mucus) Many /LPF [facility] AND [id number] 05:30:00 Test Item Value Reference Range Interpretation Comments UA Leuk Est (test code Large *ABN*(09/17/15 = UA Leuk Est) 11:30 PM) [facility] AND [id number] 05:30:00 Test Item Value Reference Range Interpretation Comments UA Sq Epi (test code = UA Sq Epi) Many /LPF [facility] [id number] 05:30:00 Test Item Value Reference Range Interpretation Comments UA Nitrite (test code Negative (09/17/15 11:30 = UA Nitrite) PM) [facility] AND [id number] 05:30:00 Test Item Value Reference Range Interpretation Comments UA WBC (test code = 16 See_Comment [Automa arvind message] The UA WBC) system which ge nerated this result transmit arvind reference range : <=5. The reference range was not used to interpr et this result as mario l/abnormal. [facility] [id number] 05:30:00 Test Item Value Reference Range Interpretation Comments UA RBC (test code = 5 See_Comment [Automa arvind message] The UA RBC) system which ge nerated this result transmit arvind reference range : <=2. The reference range was not used to interpr et this result as mario l/abnormal. [facility] AND [id number] 05:30:00 Test Item Value Reference Range Interpretation Comments UA Bili (test code = Negative *NA*(09/17/15 UA Bili) 11:30 PM) [facility] AND [id number] 05:30:00 Test Item Value Reference Range Interpretation Comments UA Blood (test code = Negative (09/17/15 11:30 UA Blood) PM) [facility] AND [id number] 05:30:00 Test Item Value Reference Range Interpretation Comments UA Glucose (test code = UA Negative mg/dL Glucose) [facility] AND [id number] 05:30:00 Test Item Value Reference Range Interpretation Comments UA Ketones (test code = UA Trace mg/dL Ketones) [facility] AND [id number] 05:30:00 Test Item Value Reference Range Interpretation Comments UA Protein (test code = UA Protein) 30 mg/dL [facility] AND [id number] 05:30:00 Test Item Value Reference Range Interpretation Comments UA pH (test code = UA pH) 5.0 5.0-8.0 [facility] AND [id number] 05:30:00 Test Item Value Reference Range Interpretation Comments UA Spec Grav (test code = UA Spec Grav) 1.030 [facility] AND [id number] 05:30:00 Test Item Value Reference Range Interpretation Comments UA Turbidity (test code Marked *ABN*(09/17/15 = UA Turbidity) 11:30 PM) [facility] [id number] 05:30:00 Test Item Value Reference Range Interpretation Comments U Preg (test code = U Negative (09/17/15 11:30 Preg) PM) [facility] AND [id number] 05:30:00 Test Item Value Reference Range Interpretation Comments UA Urobilinogen (test code = UA <=1.0 mg/dL 0.1-1.0 Urobilinogen) [facility] [id number] 05:30:00 Test Item Value Reference Range Interpretation Comments UA Color (test code = UA Color) Marry [facility] AND [id number] 05:30:00 Test Item Value Reference Range Interpretation Comments UA Bacteria (test code = UA Many /HPF Bacteria) [facility] AND [id number] 05:30:00 Test Item Value Reference Range Interpretation Comments UA Mucus (test code = UA Mucus) Many /LPF [facility] AND [id number] 05:30:00 Test Item Value Reference Range Interpretation Comments UA Urobilinogen (test code = UA <=1.0 mg/dL 0.1-1.0 Urobilinogen) [facility] AND [id number] 05:30:00 Test Item Value Reference Range Interpretation Comments UA Color (test code = UA Color) Marry [facility] AND [id number] 05:30:00 Test Item Value Reference Range Interpretation Comments UA Bacteria (test code = UA Many /HPF Bacteria) [facility] AND [id number] 05:30:00 Test Item Value Reference Range Interpretation Comments UA Mucus (test code = UA Mucus) Many /LPF [facility] AND [id number] 05:30:00 Test Item Value Reference Range Interpretation Comments UA Leuk Est (test code Large *ABN*(09/17/15 = UA Leuk Est) 11:30 PM) [facility] AND [id number] 05:30:00 Test Item Value Reference Range Interpretation Comments UA Sq Epi (test code = UA Sq Epi) Many /LPF [facility] AND [id number] 05:30:00 Test Item Value Reference Range Interpretation Comments UA Leuk Est (test code Large *ABN*(09/17/15 = UA Leuk Est) 11:30 PM) [facility] AND [id number] 05:30:00 Test Item Value Reference Range Interpretation Comments UA Nitrite (test code Negative (09/17/15 11:30 = UA Nitrite) PM) [facility] AND [id number] 05:30:00 Test Item Value Reference Range Interpretation Comments UA WBC (test code = 16 See_Comment [Automa arvind message] The UA WBC) system which ge nerated this result transmit arvind reference range : <=5. The reference range was not used to interpr et this result as mario l/abnormal. [facility] AND [id number] 05:30:00 Test Item Value Reference Range Interpretation Comments UA RBC (test code = 5 See_Comment [Automa arvind message] The UA RBC) system which ge nerated this result transmit arvind reference range : <=2. The reference range was not used to interpr et this result as mario l/abnormal. [facility] AND [id number] 05:30:00 Test Item Value Reference Range Interpretation Comments UA Bili (test code = Negative *NA*(09/17/15 UA Bili) 11:30 PM) [facility] AND [id number] 05:30:00 Test Item Value Reference Range Interpretation Comments UA Blood (test code = Negative (09/17/15 11:30 UA Blood) PM) [facility] AND [id number] 05:30:00 Test Item Value Reference Range Interpretation Comments UA Glucose (test code = UA Negative mg/dL Glucose) [facility] AND [id number] 05:30:00 Test Item Value Reference Range Interpretation Comments UA Ketones (test code = UA Trace mg/dL Ketones) [facility] AND [id number] 05:30:00 Test Item Value Reference Range Interpretation Comments UA Protein (test code = UA Protein) 30 mg/dL [facility] AND [id number] 05:30:00 Test Item Value Reference Range Interpretation Comments UA pH (test code = UA pH) 5.0 5.0-8.0 [facility] AND [id number] 05:30:00 Test Item Value Reference Range Interpretation Comments UA Spec Grav (test code = UA Spec Grav) 1.030 [facility] AND [id number] 05:30:00 Test Item Value Reference Range Interpretation Comments UA Sq Epi (test code = UA Sq Epi) Many /LPF [facility] AND [id number] 05:30:00 Test Item Value Reference Range Interpretation Comments UA Turbidity (test code Marked *ABN*(09/17/15 = UA Turbidity) 11:30 PM) [facility] [id number] 05:30:00 Test Item Value Reference Range Interpretation Comments U Preg (test code = U Negative (09/17/15 11:30 Preg) PM) [facility] AND [id number] 05:30:00 Test Item Value Reference Range Interpretation Comments UA Nitrite (test code Negative (09/17/15 11:30 = UA Nitrite) PM) [facility] AND [id number] 05:30:00 Test Item Value Reference Range Interpretation Comments UA WBC (test code = 16 See_Comment [Automa arvind message] The UA WBC) system which ge nerated this result transmit arvind reference range : <=5. The reference range was not used to interpr et this result as mario l/abnormal. [facility] AND [id number] 05:30:00 Test Item Value Reference Range Interpretation Comments UA RBC (test code = 5 See_Comment [Automa arvind message] The UA RBC) system which ge nerated this result transmit arvind reference range : <=2. The reference range was not used to interpr et this result as mario l/abnormal. [facility] AND [id number] 05:30:00 Test Item Value Reference Range Interpretation Comments UA Bili (test code = Negative *NA*(09/17/15 UA Bili) 11:30 PM) [facility] AND [id number] 05:30:00 Test Item Value Reference Range Interpretation Comments UA Blood (test code = Negative (09/17/15 11:30 UA Blood) PM) [facility] AND [id number] 05:30:00 Test Item Value Reference Range Interpretation Comments UA Glucose (test code = UA Negative mg/dL Glucose) [facility] AND [id number] 05:30:00 Test Item Value Reference Range Interpretation Comments UA Ketones (test code = UA Trace mg/dL Ketones) [facility] AND [id number] 05:30:00 Test Item Value Reference Range Interpretation Comments UA Protein (test code = UA Protein) 30 mg/dL [facility] AND [id number] 05:30:00 Test Item Value Reference Range Interpretation Comments UA pH (test code = UA pH) 5.0 5.0-8.0 [facility] AND [id number] 05:30:00 Test Item Value Reference Range Interpretation Comments UA Spec Grav (test code = UA Spec Grav) 1.030 [facility] AND [id number] 05:30:00 Test Item Value Reference Range Interpretation Comments UA Turbidity (test code Marked *ABN*(09/17/15 = UA Turbidity) 11:30 PM) [facility] [id number] 05:30:00 Test Item Value Reference Range Interpretation Comments U Preg (test code = U Negative (09/17/15 11:30 Preg) PM) [facility] [id number] 05:30:00 Test Item Value Reference Range Interpretation Comments UA Urobilinogen (test code = UA <=1.0 mg/dL 0.1-1.0 Urobilinogen) [facility] [id number] 05:30:00 Test Item Value Reference Range Interpretation Comments UA Color (test code = UA Color) Marry [facility] AND [id number] 05:30:00 Test Item Value Reference Range Interpretation Comments UA Bacteria (test code = UA Many /HPF Bacteria) [facility] [id number] 05:30:00 Test Item Value Reference Range Interpretation Comments UA Mucus (test code = UA Mucus) Many /LPF [facility] AND [id number] 05:30:00 Test Item Value Reference Range Interpretation Comments UA Leuk Est (test code Large *ABN*(09/17/15 = UA Leuk Est) 11:30 PM) [facility] AND [id number] 05:30:00 Test Item Value Reference Range Interpretation Comments UA Sq Epi (test code = UA Sq Epi) Many /LPF [facility] [id number] 05:30:00 Test Item Value Reference Range Interpretation Comments UA Nitrite (test code Negative (09/17/15 11:30 = UA Nitrite) PM) [facility] [id number] 05:30:00 Test Item Value Reference Range Interpretation Comments UA WBC (test code = 16 See_Comment [Automa arvind message] The UA WBC) system which ge nerated this result transmit arvind reference range : <=5. The reference range was not used to interpr et this result as mario l/abnormal. [facility] AND [id number] 05:30:00 Test Item Value Reference Range Interpretation Comments UA RBC (test code = 5 See_Comment [Automa arvind message] The UA RBC) system which ge nerated this result transmit arvind reference range : <=2. The reference range was not used to interpr et this result as mario l/abnormal. [facility] AND [id number] 05:30:00 Test Item Value Reference Range Interpretation Comments UA Bili (test code = Negative *NA*(09/17/15 UA Bili) 11:30 PM) [facility] AND [id number] 05:30:00 Test Item Value Reference Range Interpretation Comments UA Blood (test code = Negative (09/17/15 11:30 UA Blood) PM) [facility] AND [id number] 05:30:00 Test Item Value Reference Range Interpretation Comments UA Glucose (test code = UA Negative mg/dL Glucose) [facility] AND [id number] 05:30:00 Test Item Value Reference Range Interpretation Comments UA Ketones (test code = UA Trace mg/dL Ketones) [facility] AND [id number] 05:30:00 Test Item Value Reference Range Interpretation Comments UA Protein (test code = UA Protein) 30 mg/dL [facility] AND [id number] 05:30:00 Test Item Value Reference Range Interpretation Comments UA pH (test code = UA pH) 5.0 5.0-8.0 [facility] AND [id number] 05:30:00 Test Item Value Reference Range Interpretation Comments UA Spec Grav (test code = UA Spec Grav) 1.030 [facility] AND [id number] 05:30:00 Test Item Value Reference Range Interpretation Comments UA Turbidity (test code Marked *ABN*(09/17/15 = UA Turbidity) 11:30 PM) [facility] [id number] 05:30:00 Test Item Value Reference Range Interpretation Comments U Preg (test code = U Negative (09/17/15 11:30 Preg) PM) [facility] AND [id number] 05:30:00 Test Item Value Reference Range Interpretation Comments UA Urobilinogen (test code = UA <=1.0 mg/dL 0.1-1.0 Urobilinogen) [facility] AND [id number] 05:30:00 Test Item Value Reference Range Interpretation Comments UA Color (test code = UA Color) [facility] [id number] 05:30:00 Test Item Value Reference Range Interpretation Comments UA Bacteria (test code = UA Many /HPF Bacteria) [facility] [id number] 05:30:00 Test Item Value Reference Range Interpretation Comments UA Mucus (test code = UA Mucus) Many /LPF [facility] [id number] 05:30:00 Test Item Value Reference Range Interpretation Comments UA Leuk Est (test code Large *ABN*(09/17/15 = UA Leuk Est) 11:30 PM) [facility] [id number] 05:30:00 Test Item Value Reference Range Interpretation Comments UA Sq Epi (test code = UA Sq Epi) Many /LPF [facility] [id number] 05:30:00 Test Item Value Reference Range Interpretation Comments UA Nitrite (test code Negative (09/17/15 11:30 = UA Nitrite) PM) [facility] [id number] 05:30:00 Test Item Value Reference Range Interpretation Comments UA WBC (test code = 16 See_Comment [Automa arvind message] The UA WBC) system which ge nerated this result transmit arvind reference range : <=5. The reference range was not used to interpr et this result as mario l/abnormal. [facility] AND [id number] 05:30:00 Test Item Value Reference Range Interpretation Comments UA RBC (test code = 5 See_Comment [Automa arvind message] The UA RBC) system which ge nerated this result transmit arvind reference range : <=2. The reference range was not used to interpr et this result as mario l/abnormal. [facility] [id number] 05:30:00 Test Item Value Reference Range Interpretation Comments UA Bili (test code = Negative *NA*(09/17/15 UA Bili) 11:30 PM) [facility] [id number] 05:30:00 Test Item Value Reference Range Interpretation Comments UA Blood (test code = Negative (09/17/15 11:30 UA Blood) PM) [facility] AND [id number] 05:30:00 Test Item Value Reference Range Interpretation Comments UA Glucose (test code = UA Negative mg/dL Glucose) [facility] AND [id number] 05:30:00 Test Item Value Reference Range Interpretation Comments UA Ketones (test code = UA Trace mg/dL Ketones) [facility] AND [id number] 05:30:00 Test Item Value Reference Range Interpretation Comments UA Protein (test code = UA Protein) 30 mg/dL [facility] AND [id number] 05:30:00 Test Item Value Reference Range Interpretation Comments UA pH (test code = UA pH) 5.0 5.0-8.0 [facility] AND [id number] 05:30:00 Test Item Value Reference Range Interpretation Comments UA Spec Grav (test code = UA Spec Grav) 1.030 [facility] AND [id number] 05:30:00 Test Item Value Reference Range Interpretation Comments UA Turbidity (test code Marked *ABN*(09/17/15 = UA Turbidity) 11:30 PM) [facility] [id number] 05:30:00 Test Item Value Reference Range Interpretation Comments U Preg (test code = U Negative (09/17/15 11:30 Preg) PM) [facility] AND [id number] 05:30:00 Test Item Value Reference Range Interpretation Comments UA Urobilinogen (test code = UA <=1.0 mg/dL 0.1-1.0 Urobilinogen) [facility] AND [id number] 05:30:00 Test Item Value Reference Range Interpretation Comments UA Color (test code = UA Color) Marry [facility] AND [id number] 05:30:00 Test Item Value Reference Range Interpretation Comments UA Bacteria (test code = UA Many /HPF Bacteria) [facility] AND [id number] 05:30:00 Test Item Value Reference Range Interpretation Comments UA Mucus (test code = UA Mucus) Many /LPF [facility] AND [id number] 05:30:00 Test Item Value Reference Range Interpretation Comments UA Leuk Est (test code Large *ABN*(09/17/15 = UA Leuk Est) 11:30 PM) [facility] AND [id number] 05:30:00 Test Item Value Reference Range Interpretation Comments UA Sq Epi (test code = UA Sq Epi) Many /LPF [facility] AND [id number] 05:30:00 Test Item Value Reference Range Interpretation Comments UA Nitrite (test code Negative (09/17/15 11:30 = UA Nitrite) PM) [facility] AND [id number] 05:30:00 Test Item Value Reference Range Interpretation Comments UA WBC (test code = 16 See_Comment [Automa arvind message] The UA WBC) system which ge nerated this result transmit arvind reference range : <=5. The reference range was not used to interpr et this result as mario l/abnormal. [facility] AND [id number] 05:30:00 Test Item Value Reference Range Interpretation Comments UA RBC (test code = 5 See_Comment [Automa arvind message] The UA RBC) system which ge nerated this result transmit arvind reference range : <=2. The reference range was not used to interpr et this result as mario l/abnormal. [facility] AND [id number] 05:30:00 Test Item Value Reference Range Interpretation Comments UA Bili (test code = Negative *NA*(09/17/15 UA Bili) 11:30 PM) [facility] AND [id number] 05:30:00 Test Item Value Reference Range Interpretation Comments UA Blood (test code = Negative (09/17/15 11:30 UA Blood) PM) [facility] AND [id number] 05:30:00 Test Item Value Reference Range Interpretation Comments UA Glucose (test code = UA Negative mg/dL Glucose) [facility] AND [id number] 05:30:00 Test Item Value Reference Range Interpretation Comments UA Ketones (test code = UA Trace mg/dL Ketones) [facility] AND [id number] 05:30:00 Test Item Value Reference Range Interpretation Comments UA Protein (test code = UA Protein) 30 mg/dL [facility] AND [id number] 05:30:00 Test Item Value Reference Range Interpretation Comments UA pH (test code = UA pH) 5.0 5.0-8.0 [facility] AND [id number] 05:30:00 Test Item Value Reference Range Interpretation Comments UA Spec Grav (test code = UA Spec Grav) 1.030 [facility] AND [id number] 05:30:00 Test Item Value Reference Range Interpretation Comments UA Turbidity (test code Marked *ABN*(09/17/15 = UA Turbidity) 11:30 PM) [facility] [id number] 05:30:00 Test Item Value Reference Range Interpretation Comments U Preg (test code = U Negative (09/17/15 11:30 Preg) PM) [facility] [id number] 05:30:00 Test Item Value Reference Range Interpretation Comments UA Urobilinogen (test code = UA <=1.0 mg/dL 0.1-1.0 Urobilinogen) [facility] [id number] 05:30:00 Test Item Value Reference Range Interpretation Comments UA Color (test code = UA Color) Marry [facility] AND [id number] 05:30:00 Test Item Value Reference Range Interpretation Comments UA Bacteria (test code = UA Many /HPF Bacteria) [facility] [id number] 05:30:00 Test Item Value Reference Range Interpretation Comments UA Mucus (test code = UA Mucus) Many /LPF [facility] AND [id number] 05:30:00 Test Item Value Reference Range Interpretation Comments UA Leuk Est (test code Large *ABN*(09/17/15 = UA Leuk Est) 11:30 PM) [facility] AND [id number] 05:30:00 Test Item Value Reference Range Interpretation Comments UA Sq Epi (test code = UA Sq Epi) Many /LPF [facility] [id number] 05:30:00 Test Item Value Reference Range Interpretation Comments UA Nitrite (test code Negative (09/17/15 11:30 = UA Nitrite) PM) [facility] [id number] 05:30:00 Test Item Value Reference Range Interpretation Comments UA WBC (test code = 16 See_Comment [Automa arvind message] The UA WBC) system which ge nerated this result transmit arvind reference range : <=5. The reference range was not used to interpr et this result as mario l/abnormal. [facility] AND [id number] 05:30:00 Test Item Value Reference Range Interpretation Comments UA RBC (test code = 5 See_Comment [Automa arvind message] The UA RBC) system which ge nerated this result transmit arvind reference range : <=2. The reference range was not used to interpr et this result as mario l/abnormal. [facility] AND [id number] 05:30:00 Test Item Value Reference Range Interpretation Comments UA Bili (test code = Negative *NA*(09/17/15 UA Bili) 11:30 PM) [facility] AND [id number] 05:30:00 Test Item Value Reference Range Interpretation Comments UA Blood (test code = Negative (09/17/15 11:30 UA Blood) PM) [facility] AND [id number] 05:30:00 Test Item Value Reference Range Interpretation Comments UA Glucose (test code = UA Negative mg/dL Glucose) [facility] AND [id number] 05:30:00 Test Item Value Reference Range Interpretation Comments UA Ketones (test code = UA Trace mg/dL Ketones) [facility] AND [id number] 05:30:00 Test Item Value Reference Range Interpretation Comments UA Protein (test code = UA Protein) 30 mg/dL [facility] AND [id number] 05:30:00 Test Item Value Reference Range Interpretation Comments UA pH (test code = UA pH) 5.0 5.0-8.0 [facility] AND [id number] 05:30:00 Test Item Value Reference Range Interpretation Comments UA Spec Grav (test code = UA Spec Grav) 1.030 [facility] AND [id number] 05:30:00 Test Item Value Reference Range Interpretation Comments UA Turbidity (test code Marked *ABN*(09/17/15 = UA Turbidity) 11:30 PM) [facility] [id number] 05:30:00 Test Item Value Reference Range Interpretation Comments U Preg (test code = U Negative (09/17/15 11:30 Preg) PM) [facility] AND [id number] 05:30:00 Test Item Value Reference Range Interpretation Comments UA Urobilinogen (test code = UA <=1.0 mg/dL 0.1-1.0 Urobilinogen) [facility] AND [id number] 05:30:00 Test Item Value Reference Range Interpretation Comments UA Color (test code = UA Color) [facility] [id number] 05:30:00 Test Item Value Reference Range Interpretation Comments UA Bacteria (test code = UA Many /HPF Bacteria) [facility] AND [id number] 05:30:00 Test Item Value Reference Range Interpretation Comments UA Mucus (test code = UA Mucus) Many /LPF [facility] [id number] 05:30:00 Test Item Value Reference Range Interpretation Comments UA Leuk Est (test code Large *ABN*(09/17/15 = UA Leuk Est) 11:30 PM) [facility] AND [id number] 05:30:00 Test Item Value Reference Range Interpretation Comments UA Sq Epi (test code = UA Sq Epi) Many /LPF [facility] AND [id number] 05:30:00 Test Item Value Reference Range Interpretation Comments UA Nitrite (test code Negative (09/17/15 11:30 = UA Nitrite) PM) [facility] AND [id number] 05:30:00 Test Item Value Reference Range Interpretation Comments UA WBC (test code = 16 See_Comment [Automa arvind message] The UA WBC) system which ge nerated this result transmit arvind reference range : <=5. The reference range was not used to interpr et this result as mario l/abnormal. [facility] AND [id number] 05:30:00 Test Item Value Reference Range Interpretation Comments UA RBC (test code = 5 See_Comment [Automa arvind message] The UA RBC) system which ge nerated this result transmit arvind reference range : <=2. The reference range was not used to interpr et this result as mario l/abnormal. [facility] AND [id number] 05:30:00 Test Item Value Reference Range Interpretation Comments UA Bili (test code = Negative *NA*(09/17/15 UA Bili) 11:30 PM) [facility] [id number] 05:30:00 Test Item Value Reference Range Interpretation Comments UA Blood (test code = Negative (09/17/15 11:30 UA Blood) PM) [facility] [id number] 05:30:00 Test Item Value Reference Range Interpretation Comments UA Glucose (test code = UA Negative mg/dL Glucose) [facility] AND [id number] 05:30:00 Test Item Value Reference Range Interpretation Comments UA Ketones (test code = UA Trace mg/dL Ketones) [facility] AND [id number] 05:30:00 Test Item Value Reference Range Interpretation Comments UA Protein (test code = UA Protein) 30 mg/dL [facility] AND [id number] 05:30:00 Test Item Value Reference Range Interpretation Comments UA pH (test code = UA pH) 5.0 5.0-8.0 [facility] AND [id number] 05:30:00 Test Item Value Reference Range Interpretation Comments UA Spec Grav (test code = UA Spec Grav) 1.030 [facility] AND [id number] 05:30:00 Test Item Value Reference Range Interpretation Comments UA Turbidity (test code Marked *ABN*(09/17/15 = UA Turbidity) 11:30 PM) [facility] [id number] 05:30:00 Test Item Value Reference Range Interpretation Comments U Preg (test code = U Negative (09/17/15 11:30 Preg) PM) [facility] AND [id number] 05:30:00 Test Item Value Reference Range Interpretation Comments UA Urobilinogen (test code = UA <=1.0 mg/dL 0.1-1.0 Urobilinogen) [facility] AND [id number] 05:30:00 Test Item Value Reference Range Interpretation Comments UA Color (test code = UA Color) Marry [facility] AND [id number] 05:30:00 Test Item Value Reference Range Interpretation Comments UA Bacteria (test code = UA Many /HPF Bacteria) [facility] AND [id number] 05:30:00 Test Item Value Reference Range Interpretation Comments UA Mucus (test code = UA Mucus) Many /LPF [facility] AND [id number] 05:30:00 Test Item Value Reference Range Interpretation Comments UA Leuk Est (test code Large *ABN*(09/17/15 = UA Leuk Est) 11:30 PM) [facility] AND [id number] 05:30:00 Test Item Value Reference Range Interpretation Comments UA Sq Epi (test code = UA Sq Epi) Many /LPF [facility] AND [id number] 05:30:00 Test Item Value Reference Range Interpretation Comments UA Nitrite (test code Negative (09/17/15 11:30 = UA Nitrite) PM) [facility] AND [id number] 05:30:00 Test Item Value Reference Range Interpretation Comments UA WBC (test code = 16 See_Comment [Automa arvind message] The UA WBC) system which ge nerated this result transmit arvind reference range : <=5. The reference range was not used to interpr et this result as mario l/abnormal. [facility] AND [id number] 05:30:00 Test Item Value Reference Range Interpretation Comments UA RBC (test code = 5 See_Comment [Automa arvind message] The UA RBC) system which ge nerated this result transmit arvind reference range : <=2. The reference range was not used to interpr et this result as mario l/abnormal. [facility] AND [id number] 05:30:00 Test Item Value Reference Range Interpretation Comments UA Bili (test code = Negative *NA*(09/17/15 UA Bili) 11:30 PM) [facility] AND [id number] 05:30:00 Test Item Value Reference Range Interpretation Comments UA Blood (test code = Negative (09/17/15 11:30 UA Blood) PM) [facility] AND [id number] 05:30:00 Test Item Value Reference Range Interpretation Comments UA Glucose (test code = UA Negative mg/dL Glucose) [facility] AND [id number] 05:30:00 Test Item Value Reference Range Interpretation Comments UA Ketones (test code = UA Trace mg/dL Ketones) [facility] AND [id number] 05:30:00 Test Item Value Reference Range Interpretation Comments UA Protein (test code = UA Protein) 30 mg/dL [facility] AND [id number] 05:30:00 Test Item Value Reference Range Interpretation Comments UA pH (test code = UA pH) 5.0 5.0-8.0 [facility] AND [id number] 05:30:00 Test Item Value Reference Range Interpretation Comments UA Spec Grav (test code = UA Spec Grav) 1.030 [facility] AND [id number] 05:30:00 Test Item Value Reference Range Interpretation Comments UA Turbidity (test code Marked *ABN*(09/17/15 = UA Turbidity) 11:30 PM) [facility] [id number] 05:30:00 Test Item Value Reference Range Interpretation Comments U Preg (test code = U Negative (09/17/15 11:30 Preg) PM) [facility] AND [id number] 05:30:00 Test Item Value Reference Range Interpretation Comments UA Urobilinogen (test code = UA <=1.0 mg/dL 0.1-1.0 Urobilinogen) [facility] AND [id number] 05:30:00 Test Item Value Reference Range Interpretation Comments UA Color (test code = UA Color) Marry [facility] AND [id number] 05:30:00 Test Item Value Reference Range Interpretation Comments UA Bacteria (test code = UA Many /HPF Bacteria) [facility] [id number] 05:30:00 Test Item Value Reference Range Interpretation Comments UA Mucus (test code = UA Mucus) Many /LPF [facility] AND [id number] 05:30:00 Test Item Value Reference Range Interpretation Comments UA Leuk Est (test code Large *ABN*(09/17/15 = UA Leuk Est) 11:30 PM) [facility] AND [id number] 05:30:00 Test Item Value Reference Range Interpretation Comments UA Sq Epi (test code = UA Sq Epi) Many /LPF [facility] AND [id number] 05:30:00 Test Item Value Reference Range Interpretation Comments UA Nitrite (test code Negative (09/17/15 11:30 = UA Nitrite) PM) [facility] AND [id number] 05:30:00 Test Item Value Reference Range Interpretation Comments UA WBC (test code = 16 See_Comment [Automa arvind message] The UA WBC) system which ge nerated this result transmit arvind reference range : <=5. The reference range was not used to interpr et this result as mraio l/abnormal. [facility] AND [id number] 05:30:00 Test Item Value Reference Range Interpretation Comments UA RBC (test code = 5 See_Comment [Automa arvind message] The UA RBC) system which ge nerated this result transmit arvind reference range : <=2. The reference range was not used to interpr et this result as mario l/abnormal. [facility] AND [id number] 05:30:00 Test Item Value Reference Range Interpretation Comments UA Bili (test code = Negative *NA*(09/17/15 UA Bili) 11:30 PM) [facility] AND [id number] 05:30:00 Test Item Value Reference Range Interpretation Comments UA Blood (test code = Negative (09/17/15 11:30 UA Blood) PM) [facility] AND [id number] 05:30:00 Test Item Value Reference Range Interpretation Comments UA Glucose (test code = UA Negative mg/dL Glucose) [facility] AND [id number] 05:30:00 Test Item Value Reference Range Interpretation Comments UA Ketones (test code = UA Trace mg/dL Ketones) [facility] AND [id number] 05:30:00 Test Item Value Reference Range Interpretation Comments UA Protein (test code = UA Protein) 30 mg/dL [facility] AND [id number] 05:30:00 Test Item Value Reference Range Interpretation Comments UA pH (test code = UA pH) 5.0 5.0-8.0 [facility] AND [id number] 05:30:00 Test Item Value Reference Range Interpretation Comments UA Spec Grav (test code = UA Spec Grav) 1.030 [facility] AND [id number] 05:30:00 Test Item Value Reference Range Interpretation Comments UA Turbidity (test code Marked *ABN*(09/17/15 = UA Turbidity) 11:30 PM) [facility] [id number] 05:30:00 Test Item Value Reference Range Interpretation Comments U Preg (test code = U Negative (09/17/15 11:30 Preg) PM) [facility] AND [id number] 05:30:00 Test Item Value Reference Range Interpretation Comments UA Urobilinogen (test code = UA <=1.0 mg/dL 0.1-1.0 Urobilinogen) [facility] AND [id number] 05:30:00 Test Item Value Reference Range Interpretation Comments UA Color (test code = UA Color) [facility] [id number] 05:30:00 Test Item Value Reference Range Interpretation Comments UA Bacteria (test code = UA Many /HPF Bacteria) [facility] [id number] 05:30:00 Test Item Value Reference Range Interpretation Comments UA Mucus (test code = UA Mucus) Many /LPF [facility] [id number] 05:30:00 Test Item Value Reference Range Interpretation Comments UA Leuk Est (test code Large *ABN*(09/17/15 = UA Leuk Est) 11:30 PM) [facility] [id number] 05:30:00 Test Item Value Reference Range Interpretation Comments UA Sq Epi (test code = UA Sq Epi) Many /LPF [facility] [id number] 05:30:00 Test Item Value Reference Range Interpretation Comments UA Nitrite (test code Negative (09/17/15 11:30 = UA Nitrite) PM) [facility] [id number] 05:30:00 Test Item Value Reference Range Interpretation Comments UA WBC (test code = 16 See_Comment [Automa arvind message] The UA WBC) system which ge nerated this result transmit arvind reference range : <=5. The reference range was not used to interpr et this result as mario l/abnormal. [facility] AND [id number] 05:30:00 Test Item Value Reference Range Interpretation Comments UA RBC (test code = 5 See_Comment [Automa arvind message] The UA RBC) system which ge nerated this result transmit arvind reference range : <=2. The reference range was not used to interpr et this result as mario l/abnormal. [facility] [id number] 05:30:00 Test Item Value Reference Range Interpretation Comments UA Bili (test code = Negative *NA*(09/17/15 UA Bili) 11:30 PM) [facility] AND [id number] 05:30:00 Test Item Value Reference Range Interpretation Comments UA Blood (test code = Negative (09/17/15 11:30 UA Blood) PM) [facility] AND [id number] 05:30:00 Test Item Value Reference Range Interpretation Comments UA Glucose (test code = UA Negative mg/dL Glucose) [facility] AND [id number] 05:30:00 Test Item Value Reference Range Interpretation Comments UA Ketones (test code = UA Trace mg/dL Ketones) [facility] AND [id number] 05:30:00 Test Item Value Reference Range Interpretation Comments UA Protein (test code = UA Protein) 30 mg/dL [facility] AND [id number] 05:30:00 Test Item Value Reference Range Interpretation Comments UA pH (test code = UA pH) 5.0 5.0-8.0 [facility] AND [id number] 05:30:00 Test Item Value Reference Range Interpretation Comments UA Spec Grav (test code = UA Spec Grav) 1.030 [facility] AND [id number] 05:30:00 Test Item Value Reference Range Interpretation Comments UA Turbidity (test code Marked *ABN*(09/17/15 = UA Turbidity) 11:30 PM) [facility] [id number] 05:30:00 Test Item Value Reference Range Interpretation Comments U Preg (test code = U Negative (09/17/15 11:30 Preg) PM) [facility] AND [id number] 05:30:00 Test Item Value Reference Range Interpretation Comments UA Urobilinogen (test code = UA <=1.0 mg/dL 0.1-1.0 Urobilinogen) [facility] AND [id number] 05:30:00 Test Item Value Reference Range Interpretation Comments UA Color (test code = UA Color) Marry [facility] AND [id number] 05:30:00 Test Item Value Reference Range Interpretation Comments UA Bacteria (test code = UA Many /HPF Bacteria) [facility] AND [id number] 05:30:00 Test Item Value Reference Range Interpretation Comments UA Mucus (test code = UA Mucus) Many /LPF [facility] AND [id number] 05:30:00 Test Item Value Reference Range Interpretation Comments UA Leuk Est (test code Large *ABN*(09/17/15 = UA Leuk Est) 11:30 PM) [facility] AND [id number] 05:30:00 Test Item Value Reference Range Interpretation Comments UA Sq Epi (test code = UA Sq Epi) Many /LPF [facility] AND [id number] 05:30:00 Test Item Value Reference Range Interpretation Comments UA Nitrite (test code Negative (09/17/15 11:30 = UA Nitrite) PM) [facility] AND [id number] 05:30:00 Test Item Value Reference Range Interpretation Comments UA WBC (test code = 16 See_Comment [Automa arvind message] The UA WBC) system which ge nerated this result transmit arvind reference range : <=5. The reference range was not used to interpr et this result as mario l/abnormal. [facility] AND [id number] 05:30:00 Test Item Value Reference Range Interpretation Comments UA RBC (test code = 5 See_Comment [Automa arvind message] The UA RBC) system which ge nerated this result transmit arvind reference range : <=2. The reference range was not used to interpr et this result as mario l/abnormal. [facility] AND [id number] 05:30:00 Test Item Value Reference Range Interpretation Comments UA Bili (test code = Negative *NA*(09/17/15 UA Bili) 11:30 PM) [facility] AND [id number] 05:30:00 Test Item Value Reference Range Interpretation Comments UA Blood (test code = Negative (09/17/15 11:30 UA Blood) PM) [facility] AND [id number] 05:30:00 Test Item Value Reference Range Interpretation Comments UA Glucose (test code = UA Negative mg/dL Glucose) [facility] AND [id number] 05:30:00 Test Item Value Reference Range Interpretation Comments UA Ketones (test code = UA Trace mg/dL Ketones) [facility] AND [id number] 05:30:00 Test Item Value Reference Range Interpretation Comments UA Protein (test code = UA Protein) 30 mg/dL [facility] AND [id number] 05:30:00 Test Item Value Reference Range Interpretation Comments UA pH (test code = UA pH) 5.0 5.0-8.0 [facility] AND [id number] 05:30:00 Test Item Value Reference Range Interpretation Comments UA Spec Grav (test code = UA Spec Grav) 1.030 [facility] AND [id number] 05:30:00 Test Item Value Reference Range Interpretation Comments UA Turbidity (test code Marked *ABN*(09/17/15 = UA Turbidity) 11:30 PM) [facility] [id number] 05:30:00 Test Item Value Reference Range Interpretation Comments U Preg (test code = U Negative (09/17/15 11:30 Preg) PM) [facility] [id number] 05:30:00 Test Item Value Reference Range Interpretation Comments UA Urobilinogen (test code = UA <=1.0 mg/dL 0.1-1.0 Urobilinogen) [facility] [id number] 05:30:00 Test Item Value Reference Range Interpretation Comments UA Color (test code = UA Color) Marry [facility] AND [id number] 05:30:00 Test Item Value Reference Range Interpretation Comments UA Bacteria (test code = UA Many /HPF Bacteria) [facility] [id number] 05:30:00 Test Item Value Reference Range Interpretation Comments UA Mucus (test code = UA Mucus) Many /LPF [facility] AND [id number] 05:30:00 Test Item Value Reference Range Interpretation Comments UA Leuk Est (test code Large *ABN*(09/17/15 = UA Leuk Est) 11:30 PM) [facility] AND [id number] 05:30:00 Test Item Value Reference Range Interpretation Comments UA Sq Epi (test code = UA Sq Epi) Many /LPF [facility] [id number] 05:30:00 Test Item Value Reference Range Interpretation Comments UA Nitrite (test code Negative (09/17/15 11:30 = UA Nitrite) PM) [facility] AND [id number] 05:30:00 Test Item Value Reference Range Interpretation Comments UA WBC (test code = 16 See_Comment [Automa arvind message] The UA WBC) system which ge nerated this result transmit arvind reference range : <=5. The reference range was not used to interpr et this result as mario l/abnormal. [facility] AND [id number] 05:30:00 Test Item Value Reference Range Interpretation Comments UA RBC (test code = 5 See_Comment [Automa arvind message] The UA RBC) system which ge nerated this result transmit arvind reference range : <=2. The reference range was not used to interpr et this result as mario l/abnormal. [facility] AND [id number] 05:30:00 Test Item Value Reference Range Interpretation Comments UA Bili (test code = Negative *NA*(09/17/15 UA Bili) 11:30 PM) [facility] AND [id number] 05:30:00 Test Item Value Reference Range Interpretation Comments UA Blood (test code = Negative (09/17/15 11:30 UA Blood) PM) [facility] AND [id number] 05:30:00 Test Item Value Reference Range Interpretation Comments UA Glucose (test code = UA Negative mg/dL Glucose) [facility] AND [id number] 05:30:00 Test Item Value Reference Range Interpretation Comments UA Ketones (test code = UA Trace mg/dL Ketones) [facility] AND [id number] 05:30:00 Test Item Value Reference Range Interpretation Comments UA Protein (test code = UA Protein) 30 mg/dL [facility] AND [id number] 05:30:00 Test Item Value Reference Range Interpretation Comments UA pH (test code = UA pH) 5.0 5.0-8.0 [facility] AND [id number] 05:30:00 Test Item Value Reference Range Interpretation Comments UA Spec Grav (test code = UA Spec Grav) 1.030 [facility] AND [id number] 05:30:00 Test Item Value Reference Range Interpretation Comments UA Turbidity (test code Marked *ABN*(09/17/15 = UA Turbidity) 11:30 PM) [facility] [id number] 05:30:00 Test Item Value Reference Range Interpretation Comments U Preg (test code = U Negative (09/17/15 11:30 Preg) PM) [facility] AND [id number] 05:30:00 Test Item Value Reference Range Interpretation Comments UA Urobilinogen (test code = UA <=1.0 mg/dL 0.1-1.0 Urobilinogen) [facility] [id number] 05:30:00 Test Item Value Reference Range Interpretation Comments UA Color (test code = UA Color) [facility] [id number] 05:30:00 Test Item Value Reference Range Interpretation Comments UA Bacteria (test code = UA Many /HPF Bacteria) [facility] [id number] 05:30:00 Test Item Value Reference Range Interpretation Comments UA Mucus (test code = UA Mucus) Many /LPF [facility] [id number] 05:30:00 Test Item Value Reference Range Interpretation Comments UA Leuk Est (test code Large *ABN*(09/17/15 = UA Leuk Est) 11:30 PM) [facility] AND [id number] 05:30:00 Test Item Value Reference Range Interpretation Comments UA Sq Epi (test code = UA Sq Epi) Many /LPF [facility] [id number] 05:30:00 Test Item Value Reference Range Interpretation Comments UA Nitrite (test code Negative (09/17/15 11:30 = UA Nitrite) PM) [facility] AND [id number] 05:30:00 Test Item Value Reference Range Interpretation Comments UA WBC (test code = 16 See_Comment [Automa arvind message] The UA WBC) system which ge nerated this result transmit arvind reference range : <=5. The reference range was not used to interpr et this result as mario l/abnormal. [facility] AND [id number] 05:30:00 Test Item Value Reference Range Interpretation Comments UA RBC (test code = 5 See_Comment [Automa arvind message] The UA RBC) system which ge nerated this result transmit arvind reference range : <=2. The reference range was not used to interpr et this result as mario l/abnormal. [facility] AND [id number] 05:30:00 Test Item Value Reference Range Interpretation Comments UA Bili (test code = Negative *NA*(09/17/15 UA Bili) 11:30 PM) [facility] AND [id number] 05:30:00 Test Item Value Reference Range Interpretation Comments UA Blood (test code = Negative (09/17/15 11:30 UA Blood) PM) [facility] AND [id number] 05:30:00 Test Item Value Reference Range Interpretation Comments UA Glucose (test code = UA Negative mg/dL Glucose) [facility] AND [id number] 05:30:00 Test Item Value Reference Range Interpretation Comments UA Ketones (test code = UA Trace mg/dL Ketones) [facility] AND [id number] 05:30:00 Test Item Value Reference Range Interpretation Comments UA Protein (test code = UA Protein) 30 mg/dL [facility] AND [id number] 05:30:00 Test Item Value Reference Range Interpretation Comments UA pH (test code = UA pH) 5.0 5.0-8.0 [facility] AND [id number] 05:30:00 Test Item Value Reference Range Interpretation Comments UA Spec Grav (test code = UA Spec Grav) 1.030 [facility] AND [id number] 05:30:00 Test Item Value Reference Range Interpretation Comments UA Turbidity (test code Marked *ABN*(09/17/15 = UA Turbidity) 11:30 PM) [facility] [id number] 05:30:00 Test Item Value Reference Range Interpretation Comments U Preg (test code = U Negative (09/17/15 11:30 Preg) PM) [facility] AND [id number] 05:30:00 Test Item Value Reference Range Interpretation Comments UA Urobilinogen (test code = UA <=1.0 mg/dL 0.1-1.0 Urobilinogen) [facility] AND [id number] 05:30:00 Test Item Value Reference Range Interpretation Comments UA Color (test code = UA Color) Marry [facility] AND [id number] 05:30:00 Test Item Value Reference Range Interpretation Comments UA Bacteria (test code = UA Many /HPF Bacteria) [facility] AND [id number] 05:30:00 Test Item Value Reference Range Interpretation Comments UA Mucus (test code = UA Mucus) Many /LPF [facility] AND [id number] 05:30:00 Test Item Value Reference Range Interpretation Comments UA Leuk Est (test code Large *ABN*(09/17/15 = UA Leuk Est) 11:30 PM) [facility] AND [id number] 05:30:00 Test Item Value Reference Range Interpretation Comments UA Sq Epi (test code = UA Sq Epi) Many /LPF [facility] AND [id number] 05:30:00 Test Item Value Reference Range Interpretation Comments UA Nitrite (test code Negative (09/17/15 11:30 = UA Nitrite) PM) [facility] AND [id number] 05:30:00 Test Item Value Reference Range Interpretation Comments UA WBC (test code = 16 See_Comment [Automa arvind message] The UA WBC) system which ge nerated this result transmit arvind reference range : <=5. The reference range was not used to interpr et this result as mario l/abnormal. [facility] AND [id number] 05:30:00 Test Item Value Reference Range Interpretation Comments UA RBC (test code = 5 See_Comment [Automa arvind message] The UA RBC) system which ge nerated this result transmit arvind reference range : <=2. The reference range was not used to interpr et this result as mario l/abnormal. [facility] AND [id number] 05:30:00 Test Item Value Reference Range Interpretation Comments UA Bili (test code = Negative *NA*(09/17/15 UA Bili) 11:30 PM) [facility] AND [id number] 05:30:00 Test Item Value Reference Range Interpretation Comments UA Blood (test code = Negative (09/17/15 11:30 UA Blood) PM) [facility] AND [id number] 05:30:00 Test Item Value Reference Range Interpretation Comments UA Glucose (test code = UA Negative mg/dL Glucose) [facility] AND [id number] 05:30:00 Test Item Value Reference Range Interpretation Comments UA Ketones (test code = UA Trace mg/dL Ketones) [facility] AND [id number] 05:30:00 Test Item Value Reference Range Interpretation Comments UA Protein (test code = UA Protein) 30 mg/dL [facility] AND [id number] 05:30:00 Test Item Value Reference Range Interpretation Comments UA pH (test code = UA pH) 5.0 5.0-8.0 [facility] AND [id number] 05:30:00 Test Item Value Reference Range Interpretation Comments UA Spec Grav (test code = UA Spec Grav) 1.030 [facility] AND [id number] 05:30:00 Test Item Value Reference Range Interpretation Comments UA Turbidity (test code Marked *ABN*(09/17/15 = UA Turbidity) 11:30 PM) [facility] [id number] 05:30:00 Test Item Value Reference Range Interpretation Comments U Preg (test code = U Negative (09/17/15 11:30 Preg) PM) [facility]CHE[facility] [id number] 02:01:00 Test Item Value Reference Range Interpretation Comments Lipase Lvl (test code = Lipase Lvl) 196 73-393 [facility] [id number] 02:01:00 Test Item Value Reference Range Interpretation Comments Amylase Lvl (test code = Amylase Lvl) 33 25-115 [facility]ScjmffkWOEWTLTFOCUL3214-27-23 02:01:00 Test Item Value Reference Range Interpretation Comments AGAP (test code = AGAP) 10.7 10.0-20.0 [facility]pdSLRGDFNDWJAT2472-39-05 02:01:00 Test Item Value Reference Range Interpretation Comments A/G Ratio (test code = A/G Ratio) 1.2 0.7-1.6 [id number] 02:01:00 Test Item Value Reference Range Interpretation Comments Globulin (test code = Globulin) 3.1 2.0-4.0 [facility] Hos[id number] 02:01:00 Test Item Value Reference Range Interpretation Comments B/C Ratio (test code = B/C Ratio) 13 6-25 [facility] Hos[id number] 02:01:00 Test Item Value Reference Range Interpretation Comments Total Protein (test code = Total 6.9 6.4-8.4 Protein) [facility] C[id number] 02:01:00 Test Item Value Reference Range Interpretation Comments Calcium Lvl (test code = Calcium Lvl) 9.0 8.5-10.5 [facility] CenterEhuegjiVLUDTQGEOQZB4629-48-16 02:01:00 Test Item Value Reference Range Interpretation Comments CO2 (test code = CO2) 26 24-32 [facility] Hospital[id number] 02:01:00 Test Item Value Reference Range Interpretation Comments eGFR (test code = eGFR) 110 [facility] HospitalQdtptzuEDEKYBZYCVZI9751-48-83 02:01:00 Test Item Value Reference Range Interpretation Comments Bili Total (test code = Bili Total) 0.3 0.2-1.3 [facility] HospitalQvlymqoMLEHRXIKHAPE4537-83-25 02:01:00 Test Item Value Reference Range Interpretation Comments Alk Phos (test code = Alk Phos) 84 39-136 [facility] Hosp[id number] 02:01:00 Test Item Value Reference Range Interpretation Comments AST (test code = AST) 17 See_Comment [Auto mated message] The system which ge nerated this result transmit arvind reference range : <=37. The reference range was not used to interpr et this result as mario l/abnormal. [facility] HospitalZwzlgfzBCXPWKQEKHJS3080-18-14 02:01:00 Test Item Value Reference Range Interpretation Comments ALT (test code = ALT) 42 See_Comment [Auto mated message] The system which ge nerated this result transmit arvind reference range : <=65. The reference range was not used to interpr et this result as mario l/abnormal. [facility] Hospital[id number] 02:01:00 Test Item Value Reference Range Interpretation Comments Albumin Lvl (test code = Albumin Lvl) 3.8 3.5-5.0 [facility] HospitalUptunrjHWPVQEXPTIQF4259-15-39 02:01:00 Test Item Value Reference Range Interpretation Comments Sodium Lvl (test code = Sodium Lvl) 139 135-145 [facility] HospitalEbvzvwgTNVACQUTFKSW0634-90-98 02:01:00 Test Item Value Reference Range Interpretation Comments Chloride Lvl (test code = Chloride Lvl) 106 95-109 [facility] HospitalAoyzwkyIGCUCDLZBQED9752-00-88 02:01:00 Test Item Value Reference Range Interpretation Comments Potassium Lvl (test code = Potassium 3.7 3.5-5.1 Lvl) [facility] Hospital[id number] 02:01:00 Test Item Value Reference Range Interpretation Comments BUN (test code = BUN) 10 7-22 [facility] HospitalNhbylhsEFHNHIBREKIG0654-53-69 02:01:00 Test Item Value Reference Range Interpretation Comments Glucose Lvl (test code = Glucose Lvl) 88 70-99 [facility] Hos[id number] 02:01:00 Test Item Value Reference Range Interpretation Comments Creatinine Lvl (test code = Creatinine 0.76 0.50-1.40 Lvl) [facility]ownBoiwnqnYTMZZBXKKP6857-74-68 02:01:00 Test Item Value Reference Range Interpretation Comments Segs-Bands # (test code = Segs-Bands #) 5.4 1.5-8.1 [facility]ptownDdjpfjkBIKQMKXGJT2263-96-01 02:01:00 Test Item Value Reference Range Interpretation Comments Basophils (test code = 1.0 See_Comment [Aut omated message] The Basophils) system which ge nerated this result tra nsmitted reference range : <=1.0. The reference r kat was not used to int erpret this result as normal/abnormal . [facility] UptownGcjllewCKEWSLOYET8165-78-95 02:01:00 Test Item Value Reference Range Interpretation Comments Monocytes # (test code 0.7 See_Comment [Aut omated message] The = Monocytes #) system which generated this result tra nsmitted reference range : <=0.8. The reference r kat was not used to int erpret this result as normal/abnormal . [facility] UptownQqmruomKAXUSBNZON8796-86-86 02:01:00 Test Item Value Reference Range Interpretation Comments Lymphocytes (test code = Lymphocytes) 35.1 20.0-40.0 [facility] UptownPpyyijrHPQPHIBOBL7911-76-68 02:01:00 Test Item Value Reference Range Interpretation Comments Lymphocytes # (test code = Lymphocytes 3.5 1.0-5.5 #) [facility] UptownLlnrktwOBNHHXZNMF5194-47-71 02:01:00 Test Item Value Reference Range Interpretation Comments Monocytes (test code = Monocytes) 6.7 2.0-12.0 [facility] UptownEsnlvozEXOBYNXBAN8275-92-43 02:01:00 Test Item Value Reference Range Interpretation Comments Segs (test code = Segs) 54.8 45.0-75.0 [facility] UptownFspmqwvHQJRTRLYVG4366-22-94 02:01:00 Test Item Value Reference Range Interpretation Comments Eosinophils (test code = 2.4 See_Comment [A utomated message] The Eosinophils) system which ge nerated this result tra nsmitted reference range : <=4.0. The reference r kat was not used to int erpret this result as normal/abnormal . [facility]BuvxtibLACECJKMSU1333-12-54 02:01:00 Test Item Value Reference Range Interpretation Comments Basophils # (test code 0.1 See_Comment [Aut omated message] The = Basophils #) system which generated this result tra nsmitted reference range : <=0.2. The reference r kat was not used to int erpret this result as normal/abnormal . [facility]ownNyxbxupYQVDQOAMQQ4394-80-53 02:01:00 Test Item Value Reference Range Interpretation Comments Microcyte (test code = 1+ *ABN*(09/17/15 Microcyte) 8:01 PM) [facility]ptownDppuoydMPNJVHZOEA4363-70-58 02:01:00 Test Item Value Reference Range Interpretation Comments Eosinophils # (test code 0.2 See_Comment [A utomated message] The = Eosinophils #) system whic h generated this result tra nsmitted reference range : <=0.5. The reference r kat was not used to int erpret this result as normal/abnormal . [facility]ownUyzqlxcCXZXFHQLWL4037-85-14 02:01:00 Test Item Value Reference Range Interpretation Comments MPV (test code = MPV) 10.0 7.4-10.4 [facility]ptownSzfjcziUSUKYIZEIE8821-04-20 02:01:00 Test Item Value Reference Range Interpretation Comments RDW (test code = RDW) 16.9 11.5-14.5 [facility]ptownYfutphqWRRONAYNCA8144-39-50 02:01:00 Test Item Value Reference Range Interpretation Comments Platelet (test code = Platelet) 208 133-450 [facility] UptownQobetepTDRLMWYBRR4910-40-45 02:01:00 Test Item Value Reference Range Interpretation Comments MCV (test code = MCV) 77.9 80.0-98.0 [facility]ptownSqcpnzrBPJQUEFPNU6069-27-84 02:01:00 Test Item Value Reference Range Interpretation Comments MCH (test code = MCH) 24.2 pg 27.0-31.0 [facility]ownGsguqciSSJSPYQBKB0722-58-03 02:01:00 Test Item Value Reference Range Interpretation Comments MCHC (test code = MCHC) 31.1 32.0-36.0 [facility] UptownVhhbhewNRSAXHWYGE9572-57-68 02:01:00 Test Item Value Reference Range Interpretation Comments Hgb (test code = Hgb) 13.3 12.0-16.0 [facility] UptownBbsmjynEJJOLABLIS1479-10-01 02:01:00 Test Item Value Reference Range Interpretation Comments Hct (test code = Hct) 42.6 36.0-48.0 [facility] UptownMyllypiRONMLHDBVG0734-04-00 02:01:00 Test Item Value Reference Range Interpretation Comments WBC (test code = WBC) 9.9 3.7-10.4 [facility]ptownBjyqufgGBTILOHCRX0162-02-61 02:01:00 Test Item Value Reference Range Interpretation Comments RBC (test code = RBC) 5.47 4.20-5.40 [facility]2016-01-20 02:01:00 Test Item Value Reference Range Interpretation Comments Lipase Lvl (test code = Lipase Lvl) 196 73-393 [facility]2016-01-20 02:01:00 Test Item Value Reference Range Interpretation Comments Amylase Lvl (test code = Amylase Lvl) 33 25-115 [facility]ZlmqaijAAAKHUCUGQMN6292-35-19 02:01:00 Test Item Value Reference Range Interpretation Comments AGAP (test code = AGAP) 10.7 10.0-20.0 [facility] HospitalGkypgmxLKQXRUIVKCUT7774-41-81 02:01:00 Test Item Value Reference Range Interpretation Comments A/G Ratio (test code = A/G Ratio) 1.2 0.7-1.6 [facility] HospitalIviwwgwGBAFWTLWJSOY7050-20-03 02:01:00 Test Item Value Reference Range Interpretation Comments Globulin (test code = Globulin) 3.1 2.0-4.0 [facility] HospitalTsrxbrrJINMUFEELIZT1889-05-97 02:01:00 Test Item Value Reference Range Interpretation Comments B/C Ratio (test code = B/C Ratio) 13 6-25 [facility] HospitalEeuqscxBNMRQYJJATTB8435-87-80 02:01:00 Test Item Value Reference Range Interpretation Comments Total Protein (test code = Total 6.9 6.4-8.4 Protein) [facility] HospitalJpfoyyeZCZGLIZYTZTC7225-73-31 02:01:00 Test Item Value Reference Range Interpretation Comments Calcium Lvl (test code = Calcium Lvl) 9.0 8.5-10.5 [facility] HospitalIcaofmzNRUAFFZIIQHG9090-58-73 02:01:00 Test Item Value Reference Range Interpretation Comments CO2 (test code = CO2) 26 24-32 [facility] HospitalYillqkeUAEZREWLJKDA1215-06-82 02:01:00 Test Item Value Reference Range Interpretation Comments eGFR (test code = eGFR) 110 [facility] HospitalBqzkcwmDTWGGKZKJIVQ8397-70-58 02:01:00 Test Item Value Reference Range Interpretation Comments Bili Total (test code = Bili Total) 0.3 0.2-1.3 [facility] HospitalGzmswvpPVSZGAWEJEQG6206-74-99 02:01:00 Test Item Value Reference Range Interpretation Comments Alk Phos (test code = Alk Phos) 84 39-136 [facility] HospitalAfxbbhoQWHEHNNPIPOL3663-97-51 02:01:00 Test Item Value Reference Range Interpretation Comments AST (test code = AST) 17 See_Comment [Auto mated message] The system which ge nerated this result transmit arvind reference range : <=37. The reference range was not used to interpr et this result as mario l/abnormal. [facility] HospitalPdnpfonZEHEPUPJZWAA3608-26-75 02:01:00 Test Item Value Reference Range Interpretation Comments ALT (test code = ALT) 42 See_Comment [Auto mated message] The system which ge nerated this result transmit arvind reference range : <=65. The reference range was not used to interpr et this result as mario l/abnormal. [facility] HospitalFwmrjqwNNJSLTBDRWEU1976-44-60 02:01:00 Test Item Value Reference Range Interpretation Comments Albumin Lvl (test code = Albumin Lvl) 3.8 3.5-5.0 [facility] HospitalImacpryBCCZODEUQCNL0680-90-74 02:01:00 Test Item Value Reference Range Interpretation Comments Sodium Lvl (test code = Sodium Lvl) 139 135-145 [facility] HospitalVypvvpoVLUBOGVJJEKN7158-09-52 02:01:00 Test Item Value Reference Range Interpretation Comments Chloride Lvl (test code = Chloride Lvl) 106 95-109 [facility] HospitalSkhhhjfWWKOGEMETTOA4052-34-08 02:01:00 Test Item Value Reference Range Interpretation Comments Potassium Lvl (test code = Potassium 3.7 3.5-5.1 Lvl) [facility] HospitalOhdgbdkNMXAQWPPKQED6001-99-34 02:01:00 Test Item Value Reference Range Interpretation Comments BUN (test code = BUN) 10 7-22 [facility] HospitalXprqzwxZTNVOPWNEPAN3488-69-79 02:01:00 Test Item Value Reference Range Interpretation Comments Glucose Lvl (test code = Glucose Lvl) 88 70-99 [facility] HospitalJnmiijkXJOWVRDMGDKW9926-94-44 02:01:00 Test Item Value Reference Range Interpretation Comments Creatinine Lvl (test code = Creatinine 0.76 0.50-1.40 Lvl) [facility]ownTxthjjzSNGQRUCYRI1674-59-24 02:01:00 Test Item Value Reference Range Interpretation Comments Segs-Bands # (test code = Segs-Bands #) 5.4 1.5-8.1 [facility]ptownHnrecsbCGOKRUEVRB2679-57-56 02:01:00 Test Item Value Reference Range Interpretation Comments Basophils (test code = 1.0 See_Comment [Aut omated message] The Basophils) system which ge nerated this result tra nsmitted reference range : <=1.0. The reference r kat was not used to int erpret this result as normal/abnormal . [facility]ptownJkvtuzqYYKWPQDSDZ6463-35-36 02:01:00 Test Item Value Reference Range Interpretation Comments Monocytes # (test code 0.7 See_Comment [Aut omated message] The = Monocytes #) system which generated this result tra nsmitted reference range : <=0.8. The reference r kat was not used to int erpret this result as normal/abnormal . [facility]ptownUpsxmoqKERRSCQVRA8594-26-02 02:01:00 Test Item Value Reference Range Interpretation Comments Lymphocytes (test code = Lymphocytes) 35.1 20.0-40.0 [facility] UptownIkefbyvXYCYCYWQTA0105-95-71 02:01:00 Test Item Value Reference Range Interpretation Comments Lymphocytes # (test code = Lymphocytes 3.5 1.0-5.5 #) [facility]ptownIxwgqlnHQOUMKEUAU3413-15-10 02:01:00 Test Item Value Reference Range Interpretation Comments Monocytes (test code = Monocytes) 6.7 2.0-12.0 [facility] UptownSapeycbHNOKZGCHAC9328-54-28 02:01:00 Test Item Value Reference Range Interpretation Comments Segs (test code = Segs) 54.8 45.0-75.0 [facility]ptownJnafvniVHYIYZOIBX4071-99-56 02:01:00 Test Item Value Reference Range Interpretation Comments Eosinophils (test code = 2.4 See_Comment [A utomated message] The Eosinophils) system which ge nerated this result tra nsmitted reference range : <=4.0. The reference r kat was not used to int erpret this result as normal/abnormal . [facility]ptownRyyqftfCXEYGHCBMR4187-45-21 02:01:00 Test Item Value Reference Range Interpretation Comments Basophils # (test code 0.1 See_Comment [Aut omated message] The = Basophils #) system which generated this result tra nsmitted reference range : <=0.2. The reference r kat was not used to int erpret this result as normal/abnormal . [facility]ownGwabnkxYWRZEYAIUS4344-28-46 02:01:00 Test Item Value Reference Range Interpretation Comments Microcyte (test code = 1+ *ABN*(09/17/15 Microcyte) 8:01 PM) [facility]ptownTiaprtzRUQULGARDA0886-71-50 02:01:00 Test Item Value Reference Range Interpretation Comments Eosinophils # (test code 0.2 See_Comment [A utomated message] The = Eosinophils #) system whic h generated this result tra nsmitted reference range : <=0.5. The reference r kat was not used to int erpret this result as normal/abnormal . [facility]ptownSrzwkvoYSSIYGFKBM9032-74-61 02:01:00 Test Item Value Reference Range Interpretation Comments MPV (test code = MPV) 10.0 7.4-10.4 [facility]ptownHrhzyfoXRJJTRGNFW6022-51-53 02:01:00 Test Item Value Reference Range Interpretation Comments RDW (test code = RDW) 16.9 11.5-14.5 [facility]ptownNmrxlphPRZHTJDOPR1935-75-47 02:01:00 Test Item Value Reference Range Interpretation Comments Platelet (test code = Platelet) 208 133-450 [facility] UptownTozfjiiFIZLBQVSGT2140-11-64 02:01:00 Test Item Value Reference Range Interpretation Comments MCV (test code = MCV) 77.9 80.0-98.0 [facility]ptownDhhtoqwJKBGJQKQEB1910-02-26 02:01:00 Test Item Value Reference Range Interpretation Comments MCH (test code = MCH) 24.2 pg 27.0-31.0 [facility] UptownZzyynhnVUZVJEGAQU4010-56-58 02:01:00 Test Item Value Reference Range Interpretation Comments MCHC (test code = MCHC) 31.1 32.0-36.0 [facility]ptownBlvkgikHHGBKJGQTW1107-52-29 02:01:00 Test Item Value Reference Range Interpretation Comments Hgb (test code = Hgb) 13.3 12.0-16.0 [facility]ptownHofvwnjPBUIAQMBAC7329-10-74 02:01:00 Test Item Value Reference Range Interpretation Comments Hct (test code = Hct) 42.6 36.0-48.0 [facility] UptownWeijhjkCBLDRYNQNF5407-38-38 02:01:00 Test Item Value Reference Range Interpretation Comments WBC (test code = WBC) 9.9 3.7-10.4 [facility] UptownCcjpvgpLVMWJPKFFP6134-31-49 02:01:00 Test Item Value Reference Range Interpretation Comments RBC (test code = RBC) 5.47 4.20-5.40 [facility]2016-01-20 02:01:00 Test Item Value Reference Range Interpretation Comments Lipase Lvl (test code = Lipase Lvl) 196 73-393 [facility]2016-01-20 02:01:00 Test Item Value Reference Range Interpretation Comments Amylase Lvl (test code = Amylase Lvl) 33 25-115 [facility] HospitalImmtrvtSJJNNOTMPIAH8660-07-14 02:01:00 Test Item Value Reference Range Interpretation Comments AGAP (test code = AGAP) 10.7 10.0-20.0 [facility] HospitalAewpcevWRWBKMSKXHDP0671-91-10 02:01:00 Test Item Value Reference Range Interpretation Comments A/G Ratio (test code = A/G Ratio) 1.2 0.7-1.6 [facility] HospitalNlwpaakTBALAOWLRMSP7814-72-14 02:01:00 Test Item Value Reference Range Interpretation Comments Globulin (test code = Globulin) 3.1 2.0-4.0 [facility] HospitalLmcsokkIJGEPXMNABFD1131-00-15 02:01:00 Test Item Value Reference Range Interpretation Comments B/C Ratio (test code = B/C Ratio) 13 6-25 [facility] HospitalJrzehvmLRNYNKGCEXSD5237-24-88 02:01:00 Test Item Value Reference Range Interpretation Comments Total Protein (test code = Total 6.9 6.4-8.4 Protein) [facility] HospitalOhtpcsfZKHQYNNQVUBL4604-69-36 02:01:00 Test Item Value Reference Range Interpretation Comments Calcium Lvl (test code = Calcium Lvl) 9.0 8.5-10.5 [facility] HospitalCbncdntLTTEGJYQMRTP5634-46-88 02:01:00 Test Item Value Reference Range Interpretation Comments CO2 (test code = CO2) 26 24-32 [facility] HospitalYkoqugfJRCQEEPDGWXZ1868-97-95 02:01:00 Test Item Value Reference Range Interpretation Comments eGFR (test code = eGFR) 110 [facility] HospitalLdpyapxIXIBQRFRWPOA9343-95-52 02:01:00 Test Item Value Reference Range Interpretation Comments Bili Total (test code = Bili Total) 0.3 0.2-1.3 [facility] HospitalRaidduzTNLVFVSTRDRH6446-41-05 02:01:00 Test Item Value Reference Range Interpretation Comments Alk Phos (test code = Alk Phos) 84 39-136 [facility] HospitalRshziuuBPYXOEQJRQXQ1399-99-21 02:01:00 Test Item Value Reference Range Interpretation Comments AST (test code = AST) 17 See_Comment [Auto mated message] The system which ge nerated this result transmit arvind reference range : <=37. The reference range was not used to interpr et this result as mario l/abnormal. [facility] HospitalFqgegymRKEWNDMABVRC7514-55-11 02:01:00 Test Item Value Reference Range Interpretation Comments ALT (test code = ALT) 42 See_Comment [Auto mated message] The system which ge nerated this result transmit arvind reference range : <=65. The reference range was not used to interpr et this result as mario l/abnormal. [facility] HospitalNvgjsbiXUBVBKCUZXHD0165-36-72 02:01:00 Test Item Value Reference Range Interpretation Comments Albumin Lvl (test code = Albumin Lvl) 3.8 3.5-5.0 [facility] HospitalXhlbzucYVJGSQDXVNKK5027-68-88 02:01:00 Test Item Value Reference Range Interpretation Comments Sodium Lvl (test code = Sodium Lvl) 139 135-145 [facility] HospitalZzkypnlHNQZNBQZCROM2500-55-16 02:01:00 Test Item Value Reference Range Interpretation Comments Chloride Lvl (test code = Chloride Lvl) 106 95-109 [facility] HospitalCgeujfmQXVSHDVXRLGO9396-79-37 02:01:00 Test Item Value Reference Range Interpretation Comments Potassium Lvl (test code = Potassium 3.7 3.5-5.1 Lvl) [facility] HospitalDpxttbzMHHYHCKZFDJU1282-12-42 02:01:00 Test Item Value Reference Range Interpretation Comments BUN (test code = BUN) 10 7-22 [facility] HospitalUoqcwvcQCSORNXBBQDJ3738-97-06 02:01:00 Test Item Value Reference Range Interpretation Comments Glucose Lvl (test code = Glucose Lvl) 88 70-99 [facility] HospitalKgbjiaaQTFOREZHWWEO0145-96-01 02:01:00 Test Item Value Reference Range Interpretation Comments Creatinine Lvl (test code = Creatinine 0.76 0.50-1.40 Lvl) [facility]ownTsbnritZHYIRASFDW2774-51-01 02:01:00 Test Item Value Reference Range Interpretation Comments Segs-Bands # (test code = Segs-Bands #) 5.4 1.5-8.1 [facility]ptownLlaoepoDSSGFOUDSF3485-92-55 02:01:00 Test Item Value Reference Range Interpretation Comments Basophils (test code = 1.0 See_Comment [Aut omated message] The Basophils) system which ge nerated this result tra nsmitted reference range : <=1.0. The reference r kat was not used to int erpret this result as normal/abnormal . [facility]ptownMjuyejuSPDCPANDES6651-99-16 02:01:00 Test Item Value Reference Range Interpretation Comments Monocytes # (test code 0.7 See_Comment [Aut omated message] The = Monocytes #) system which generated this result tra nsmitted reference range : <=0.8. The reference r kat was not used to int erpret this result as normal/abnormal . [facility]ptownYazepkmTDEWGZHKIE5798-26-12 02:01:00 Test Item Value Reference Range Interpretation Comments Lymphocytes (test code = Lymphocytes) 35.1 20.0-40.0 [facility]ptownNrtytmfGCQKKQCVOP9346-84-14 02:01:00 Test Item Value Reference Range Interpretation Comments Lymphocytes # (test code = Lymphocytes 3.5 1.0-5.5 #) [facility]ptownMotyatcNUGQBEUDLV7116-43-22 02:01:00 Test Item Value Reference Range Interpretation Comments Monocytes (test code = Monocytes) 6.7 2.0-12.0 [facility]ptownUbbccvhCYIUGBEBGA0406-54-97 02:01:00 Test Item Value Reference Range Interpretation Comments Segs (test code = Segs) 54.8 45.0-75.0 [facility]ptownXsxplfdDPHKTTNTOH7691-03-49 02:01:00 Test Item Value Reference Range Interpretation Comments Eosinophils (test code = 2.4 See_Comment [A utomated message] The Eosinophils) system which ge nerated this result tra nsmitted reference range : <=4.0. The reference r kat was not used to int erpret this result as normal/abnormal . [facility]ptownQjaobkyPUXOSZSQJP6410-09-03 02:01:00 Test Item Value Reference Range Interpretation Comments Basophils # (test code 0.1 See_Comment [Aut omated message] The = Basophils #) system which generated this result tra nsmitted reference range : <=0.2. The reference r kat was not used to int erpret this result as normal/abnormal . [facility]ptownOtjjshyLDWNNJNMWK0845-86-60 02:01:00 Test Item Value Reference Range Interpretation Comments Microcyte (test code = 1+ *ABN*(09/17/15 Microcyte) 8:01 PM) [facility]ptownKwwpgowFGDZJFVDHS4262-90-89 02:01:00 Test Item Value Reference Range Interpretation Comments Eosinophils # (test code 0.2 See_Comment [A utomated message] The = Eosinophils #) system whic h generated this result tra nsmitted reference range : <=0.5. The reference r kat was not used to int erpret this result as normal/abnormal . [facility] UptownIwgagkiKFGCELDXYV2614-41-34 02:01:00 Test Item Value Reference Range Interpretation Comments MPV (test code = MPV) 10.0 7.4-10.4 [facility]ptownYwtdyrqNBSXLFHKDM4056-35-86 02:01:00 Test Item Value Reference Range Interpretation Comments RDW (test code = RDW) 16.9 11.5-14.5 [facility]ownXpuqjrzXJZJRPLPDD8209-33-79 02:01:00 Test Item Value Reference Range Interpretation Comments Platelet (test code = Platelet) 208 133-450 [facility]ptownFdpypqsPVBSJMGVHH0311-66-41 02:01:00 Test Item Value Reference Range Interpretation Comments MCV (test code = MCV) 77.9 80.0-98.0 [facility]ptownXmkuuccKSILYRYUVS0022-70-80 02:01:00 Test Item Value Reference Range Interpretation Comments MCH (test code = MCH) 24.2 pg 27.0-31.0 [facility]ptownJhbhuejKCRHIYFQYR9405-73-16 02:01:00 Test Item Value Reference Range Interpretation Comments MCHC (test code = MCHC) 31.1 32.0-36.0 [facility]ptownDmbemrwEWEOIAYQVB2452-29-12 02:01:00 Test Item Value Reference Range Interpretation Comments Hgb (test code = Hgb) 13.3 12.0-16.0 [facility]ownTvsxjrcYQXVYWDYND0469-82-12 02:01:00 Test Item Value Reference Range Interpretation Comments Hct (test code = Hct) 42.6 36.0-48.0 [facility] UptownZutizusBNKBLJRPOI1092-22-63 02:01:00 Test Item Value Reference Range Interpretation Comments WBC (test code = WBC) 9.9 3.7-10.4 [facility]ptownAmpeqsuTOCFGURVQG9958-88-26 02:01:00 Test Item Value Reference Range Interpretation Comments RBC (test code = RBC) 5.47 4.20-5.40 [facility]2016-01-20 02:01:00 Test Item Value Reference Range Interpretation Comments Lipase Lvl (test code = Lipase Lvl) 196 73-393 [facility]2016-01-20 02:01:00 Test Item Value Reference Range Interpretation Comments Amylase Lvl (test code = Amylase Lvl) 33 25-115 [facility] HospitalEpokuimQFPBRFNZTHSE1211-01-71 02:01:00 Test Item Value Reference Range Interpretation Comments AGAP (test code = AGAP) 10.7 10.0-20.0 [facility] HospitalJjgafbeESSFRZKTXDRM6077-04-38 02:01:00 Test Item Value Reference Range Interpretation Comments A/G Ratio (test code = A/G Ratio) 1.2 0.7-1.6 [facility] HospitalIdvdphcUBNZSFWERHQD4512-54-34 02:01:00 Test Item Value Reference Range Interpretation Comments Globulin (test code = Globulin) 3.1 2.0-4.0 [facility] HospitalGwfuwntRIBFHTKKNWFC4490-69-65 02:01:00 Test Item Value Reference Range Interpretation Comments B/C Ratio (test code = B/C Ratio) 13 6-25 [facility] HospitalPwibyqtYIRUPIPVBTRH8888-05-13 02:01:00 Test Item Value Reference Range Interpretation Comments Total Protein (test code = Total 6.9 6.4-8.4 Protein) [facility] HospitalElncxsxWORZALRTEMZU7892-93-95 02:01:00 Test Item Value Reference Range Interpretation Comments Calcium Lvl (test code = Calcium Lvl) 9.0 8.5-10.5 [facility] HospitalZogycmyWKYUBQNBFULE4827-36-96 02:01:00 Test Item Value Reference Range Interpretation Comments CO2 (test code = CO2) 26 24-32 [facility] HospitalObexvhhDVLFNVZBNHTB8426-39-10 02:01:00 Test Item Value Reference Range Interpretation Comments eGFR (test code = eGFR) 110 [facility] HospitalAvavcagRECSTMZEKPST9553-76-87 02:01:00 Test Item Value Reference Range Interpretation Comments Bili Total (test code = Bili Total) 0.3 0.2-1.3 [facility] HospitalLtjnivdPXOHYKCFAKTD5433-42-68 02:01:00 Test Item Value Reference Range Interpretation Comments Alk Phos (test code = Alk Phos) 84 39-136 [facility] HospitalMjjvxsjQMJBQQEMDJNQ3055-94-31 02:01:00 Test Item Value Reference Range Interpretation Comments AST (test code = AST) 17 See_Comment [Auto mated message] The system which ge nerated this result transmit arvind reference range : <=37. The reference range was not used to interpr et this result as mario l/abnormal. [facility] HospitalGstzzspKEBWIVFWJAFA4437-72-08 02:01:00 Test Item Value Reference Range Interpretation Comments ALT (test code = ALT) 42 See_Comment [Auto mated message] The system which ge nerated this result transmit arvind reference range : <=65. The reference range was not used to interpr et this result as mario l/abnormal. [facility] HospitalYhtautuZMHKFUFQLNIL6167-80-70 02:01:00 Test Item Value Reference Range Interpretation Comments Albumin Lvl (test code = Albumin Lvl) 3.8 3.5-5.0 [facility] HospitalFazshnpMJXECUEJIMQE1345-38-85 02:01:00 Test Item Value Reference Range Interpretation Comments Sodium Lvl (test code = Sodium Lvl) 139 135-145 [facility] HospitalVsyoehqWQOIDSMLXNQY0302-54-00 02:01:00 Test Item Value Reference Range Interpretation Comments Chloride Lvl (test code = Chloride Lvl) 106 95-109 [facility] HospitalIqkmofaBASKSHIORHNK3148-35-49 02:01:00 Test Item Value Reference Range Interpretation Comments Potassium Lvl (test code = Potassium 3.7 3.5-5.1 Lvl) [facility] HospitalXqwoxymXNTMKSCSWUKY1511-19-24 02:01:00 Test Item Value Reference Range Interpretation Comments BUN (test code = BUN) 10 7-22 [facility] HospitalBqbdyrsCPAHETRXSVVK3751-52-72 02:01:00 Test Item Value Reference Range Interpretation Comments Glucose Lvl (test code = Glucose Lvl) 88 70-99 [facility] HospitalTthqhvuMKUCJJEWIHOL7120-75-18 02:01:00 Test Item Value Reference Range Interpretation Comments Creatinine Lvl (test code = Creatinine 0.76 0.50-1.40 Lvl) [facility]ownGijwudvMBQTHVCOOF0911-20-90 02:01:00 Test Item Value Reference Range Interpretation Comments Segs-Bands # (test code = Segs-Bands #) 5.4 1.5-8.1 [facility]ownPwlxoezOVFQRBFPDT9345-54-18 02:01:00 Test Item Value Reference Range Interpretation Comments Basophils (test code = 1.0 See_Comment [Aut omated message] The Basophils) system which ge nerated this result tra nsmitted reference range : <=1.0. The reference r kat was not used to int erpret this result as normal/abnormal . [facility]ownIkvjaxxIYWWTJHXRI2960-01-29 02:01:00 Test Item Value Reference Range Interpretation Comments Monocytes # (test code 0.7 See_Comment [Aut omated message] The = Monocytes #) system which generated this result tra nsmitted reference range : <=0.8. The reference r kat was not used to int erpret this result as normal/abnormal . [facility]ownJdqhyfpZEMEMPSLGN3366-98-61 02:01:00 Test Item Value Reference Range Interpretation Comments Lymphocytes (test code = Lymphocytes) 35.1 20.0-40.0 [facility]ptownYibnnahXUJNNQIBNC4837-57-46 02:01:00 Test Item Value Reference Range Interpretation Comments Lymphocytes # (test code = Lymphocytes 3.5 1.0-5.5 #) [facility]ptownZblcrlwDTCKZEPIUV8473-08-57 02:01:00 Test Item Value Reference Range Interpretation Comments Monocytes (test code = Monocytes) 6.7 2.0-12.0 [facility]ptownRqdywpeIEFNMXZHJC0094-72-69 02:01:00 Test Item Value Reference Range Interpretation Comments Segs (test code = Segs) 54.8 45.0-75.0 [facility]ptownLcffyvgWSJWZAQHUW6114-41-55 02:01:00 Test Item Value Reference Range Interpretation Comments Eosinophils (test code = 2.4 See_Comment [A utomated message] The Eosinophils) system which ge nerated this result tra nsmitted reference range : <=4.0. The reference r kat was not used to int erpret this result as normal/abnormal . [facility]ptownStixxvqAPTIBHMBYT3059-17-95 02:01:00 Test Item Value Reference Range Interpretation Comments Basophils # (test code 0.1 See_Comment [Aut omated message] The = Basophils #) system which generated this result tra nsmitted reference range : <=0.2. The reference r kat was not used to int erpret this result as normal/abnormal . [facility]ownUjqzvouAVPXDOCUKO6604-72-09 02:01:00 Test Item Value Reference Range Interpretation Comments Microcyte (test code = 1+ *ABN*(09/17/15 Microcyte) 8:01 PM) [facility] UptownLupdrrkAHIEIDJOGZ3741-16-54 02:01:00 Test Item Value Reference Range Interpretation Comments Eosinophils # (test code 0.2 See_Comment [A utomated message] The = Eosinophils #) system whic h generated this result tra nsmitted reference range : <=0.5. The reference r kat was not used to int erpret this result as normal/abnormal . [facility]ptownAeqtgjlIRARSFJZJJ7294-68-35 02:01:00 Test Item Value Reference Range Interpretation Comments MPV (test code = MPV) 10.0 7.4-10.4 [facility] UptownDrrvqboFQJMDATHJQ2237-96-61 02:01:00 Test Item Value Reference Range Interpretation Comments RDW (test code = RDW) 16.9 11.5-14.5 [facility] UptownTjteulhODUIOALSEN5479-52-95 02:01:00 Test Item Value Reference Range Interpretation Comments Platelet (test code = Platelet) 208 133-450 [facility]ptownZqqsxgwNTEDLBHOCP2410-78-43 02:01:00 Test Item Value Reference Range Interpretation Comments MCV (test code = MCV) 77.9 80.0-98.0 [facility]ptownTjdwfpoVXBZFHYIOW5148-18-70 02:01:00 Test Item Value Reference Range Interpretation Comments MCH (test code = MCH) 24.2 pg 27.0-31.0 [facility]ptownGywhrijXENQKLUCMV4263-36-03 02:01:00 Test Item Value Reference Range Interpretation Comments MCHC (test code = MCHC) 31.1 32.0-36.0 [facility]ptownGcpzhjnLKNGWRLNJA4034-70-44 02:01:00 Test Item Value Reference Range Interpretation Comments Hgb (test code = Hgb) 13.3 12.0-16.0 [facility]ptownNbtycmpGYOBGMUXUL5474-81-53 02:01:00 Test Item Value Reference Range Interpretation Comments Hct (test code = Hct) 42.6 36.0-48.0 [facility]ptownHgzkbxfXQCUILMAJU8809-00-49 02:01:00 Test Item Value Reference Range Interpretation Comments WBC (test code = WBC) 9.9 3.7-10.4 [facility]ptownZhndwsfMINYPIVNBX9910-42-87 02:01:00 Test Item Value Reference Range Interpretation Comments RBC (test code = RBC) 5.47 4.20-5.40 [facility]2016-01-20 02:01:00 Test Item Value Reference Range Interpretation Comments Lipase Lvl (test code = Lipase Lvl) 196 73-393 [facility]2016-01-20 02:01:00 Test Item Value Reference Range Interpretation Comments Amylase Lvl (test code = Amylase Lvl) 33 25-115 [facility]UgpijfbXNZJDZRZMWQZ2186-14-31 02:01:00 Test Item Value Reference Range Interpretation Comments AGAP (test code = AGAP) 10.7 10.0-20.0 [facility] HospitalZgzrqkuMYGGAZBAPYUF2482-63-79 02:01:00 Test Item Value Reference Range Interpretation Comments A/G Ratio (test code = A/G Ratio) 1.2 0.7-1.6 [facility] HospitalNbsjeegJSHGZJFFLBSP8310-95-96 02:01:00 Test Item Value Reference Range Interpretation Comments Globulin (test code = Globulin) 3.1 2.0-4.0 [facility] HospitalRzmivypHZWQYMTRYAMO4443-66-11 02:01:00 Test Item Value Reference Range Interpretation Comments B/C Ratio (test code = B/C Ratio) 13 6-25 [facility] HospitalVokvgxzBNQQHSQWFGSB8452-49-45 02:01:00 Test Item Value Reference Range Interpretation Comments Total Protein (test code = Total 6.9 6.4-8.4 Protein) [facility] HospitalOjcxpacKZMUTJZJRYPH7003-78-98 02:01:00 Test Item Value Reference Range Interpretation Comments Calcium Lvl (test code = Calcium Lvl) 9.0 8.5-10.5 [facility] HospitalJycjgkoZCABHHANEMVQ4235-48-54 02:01:00 Test Item Value Reference Range Interpretation Comments CO2 (test code = CO2) 26 24-32 [facility] HospitalCfigdjhZBYVUCDFLJBO1857-57-14 02:01:00 Test Item Value Reference Range Interpretation Comments eGFR (test code = eGFR) 110 [facility] HospitalBkxtogcGMDKCWIEWXDV5142-58-78 02:01:00 Test Item Value Reference Range Interpretation Comments Bili Total (test code = Bili Total) 0.3 0.2-1.3 [facility] HospitalBbwbxdeXFQVSFYFAGMW5796-53-67 02:01:00 Test Item Value Reference Range Interpretation Comments Alk Phos (test code = Alk Phos) 84 39-136 [facility] HospitalWdympigBWLQMKKGZQWE8377-67-01 02:01:00 Test Item Value Reference Range Interpretation Comments AST (test code = AST) 17 See_Comment [Auto mated message] The system which ge nerated this result transmit arvind reference range : <=37. The reference range was not used to interpr et this result as mario l/abnormal. [facility] HospitalFansbhsKZZHZCKQKXVU4607-35-68 02:01:00 Test Item Value Reference Range Interpretation Comments ALT (test code = ALT) 42 See_Comment [Auto mated message] The system which ge nerated this result transmit arvind reference range : <=65. The reference range was not used to interpr et this result as mario l/abnormal. [facility] HospitalVnddvgjBMEKFVBNMMBC3350-25-41 02:01:00 Test Item Value Reference Range Interpretation Comments Albumin Lvl (test code = Albumin Lvl) 3.8 3.5-5.0 [facility] HospitalMtrcuknAOANZPCGJKYU2269-16-99 02:01:00 Test Item Value Reference Range Interpretation Comments Sodium Lvl (test code = Sodium Lvl) 139 135-145 [facility] HospitalGbkbapnYTCCRHKPVITK5989-36-00 02:01:00 Test Item Value Reference Range Interpretation Comments Chloride Lvl (test code = Chloride Lvl) 106 95-109 [facility] HospitalEaoraaoIIIGOKTGGZSO0425-42-59 02:01:00 Test Item Value Reference Range Interpretation Comments Potassium Lvl (test code = Potassium 3.7 3.5-5.1 Lvl) [facility] HospitalKpsseatWTNQQIBESKMS7981-69-59 02:01:00 Test Item Value Reference Range Interpretation Comments BUN (test code = BUN) 10 7-22 [facility] HospitalZjsahfxYBGXAZXISQQX1286-49-09 02:01:00 Test Item Value Reference Range Interpretation Comments Glucose Lvl (test code = Glucose Lvl) 88 70-99 [facility] HospitalHegfbdpJCYWCUMZJEMF6661-95-69 02:01:00 Test Item Value Reference Range Interpretation Comments Creatinine Lvl (test code = Creatinine 0.76 0.50-1.40 Lvl) [facility]ownUzsdgufAFQFGOCBXB2569-59-61 02:01:00 Test Item Value Reference Range Interpretation Comments Segs-Bands # (test code = Segs-Bands #) 5.4 1.5-8.1 [facility]ptownDpkgdphJUKWXDTGMT2516-31-13 02:01:00 Test Item Value Reference Range Interpretation Comments Basophils (test code = 1.0 See_Comment [Aut omated message] The Basophils) system which ge nerated this result tra nsmitted reference range : <=1.0. The reference r kat was not used to int erpret this result as normal/abnormal . [facility]ownErkliooXXPKCUYRDO3988-15-36 02:01:00 Test Item Value Reference Range Interpretation Comments Monocytes # (test code 0.7 See_Comment [Aut omated message] The = Monocytes #) system which generated this result tra nsmitted reference range : <=0.8. The reference r kat was not used to int erpret this result as normal/abnormal . [facility]ptownLikuzrnRGRKTNPNVO7697-99-52 02:01:00 Test Item Value Reference Range Interpretation Comments Lymphocytes (test code = Lymphocytes) 35.1 20.0-40.0 [facility]ptownUqlccwzZGXVYOIQCF2963-42-08 02:01:00 Test Item Value Reference Range Interpretation Comments Lymphocytes # (test code = Lymphocytes 3.5 1.0-5.5 #) [facility]ptownQsilsutDEZYIQLVVD1460-79-90 02:01:00 Test Item Value Reference Range Interpretation Comments Monocytes (test code = Monocytes) 6.7 2.0-12.0 [facility]ptownIhpgvteCYWBQJKVMU1987-26-31 02:01:00 Test Item Value Reference Range Interpretation Comments Segs (test code = Segs) 54.8 45.0-75.0 [facility]ownNdwnhosTRSJWJVYJT9509-66-89 02:01:00 Test Item Value Reference Range Interpretation Comments Eosinophils (test code = 2.4 See_Comment [A utomated message] The Eosinophils) system which ge nerated this result tra nsmitted reference range : <=4.0. The reference r kat was not used to int erpret this result as normal/abnormal . [facility]ptownXuhsrgaOLLOTCYGQL4860-98-09 02:01:00 Test Item Value Reference Range Interpretation Comments Basophils # (test code 0.1 See_Comment [Aut omated message] The = Basophils #) system which generated this result tra nsmitted reference range : <=0.2. The reference r kat was not used to int erpret this result as normal/abnormal . [facility]ownOjmjcqmHMTYQXIGIG4598-55-90 02:01:00 Test Item Value Reference Range Interpretation Comments Microcyte (test code = 1+ *ABN*(09/17/15 Microcyte) 8:01 PM) [facility]ptownIuhsqkjEWBRHNBTRJ8649-42-68 02:01:00 Test Item Value Reference Range Interpretation Comments Eosinophils # (test code 0.2 See_Comment [A utomated message] The = Eosinophils #) system whic h generated this result tra nsmitted reference range : <=0.5. The reference r kat was not used to int erpret this result as normal/abnormal . [facility]2016-01-20 02:01:00 Test Item Value Reference Range Interpretation Comments Lipase Lvl (test code = Lipase Lvl) 196 73-393 [facility] IZPEC6035-43-94 02:01:00 Test Item Value Reference Range Interpretation Comments Amylase Lvl (test code = Amylase Lvl) 33 25-115 [facility] HospitalAtxlsqqBYCZNYFVNQJE6986-21-90 02:01:00 Test Item Value Reference Range Interpretation Comments AGAP (test code = AGAP) 10.7 10.0-20.0 [facility] HospitalQdpqltcWRWOQWWYVPEN5977-48-49 02:01:00 Test Item Value Reference Range Interpretation Comments A/G Ratio (test code = A/G Ratio) 1.2 0.7-1.6 [facility] HospitalVhnnupnRRTFJFAMOBRL4176-75-57 02:01:00 Test Item Value Reference Range Interpretation Comments Globulin (test code = Globulin) 3.1 2.0-4.0 [facility] HospitalFqyqqryJOJYZHFZFNQP3104-06-46 02:01:00 Test Item Value Reference Range Interpretation Comments B/C Ratio (test code = B/C Ratio) 13 6-25 [facility] HospitalZgobyulBOXBGDGJNUYE8242-07-68 02:01:00 Test Item Value Reference Range Interpretation Comments Total Protein (test code = Total 6.9 6.4-8.4 Protein) [facility] HospitalMbkuqwdLPQEVFGVGMZB1315-33-91 02:01:00 Test Item Value Reference Range Interpretation Comments Calcium Lvl (test code = Calcium Lvl) 9.0 8.5-10.5 [facility] CenterXairgodOWAGXDEHOB2398-45-88 02:01:00 Test Item Value Reference Range Interpretation Comments MPV (test code = MPV) 10.0 7.4-10.4 [facility] HospitalUqxopwzDXVGHAARWJQH8461-03-39 02:01:00 Test Item Value Reference Range Interpretation Comments CO2 (test code = CO2) 26 24-32 [facility] HospitalIczfsrvQCPGZVENBTLJ7354-91-58 02:01:00 Test Item Value Reference Range Interpretation Comments eGFR (test code = eGFR) 110 [facility] HospitalGhwvmwyUPOFPOZHZWNV8256-75-59 02:01:00 Test Item Value Reference Range Interpretation Comments Bili Total (test code = Bili Total) 0.3 0.2-1.3 [facility] HospitalYykiqhiWVSNTVRNRJSN2551-39-59 02:01:00 Test Item Value Reference Range Interpretation Comments Alk Phos (test code = Alk Phos) 84 39-136 [facility] HospitalGehbvnlQBWRVRJDOGWW4200-96-77 02:01:00 Test Item Value Reference Range Interpretation Comments AST (test code = AST) 17 See_Comment [Auto mated message] The system which ge nerated this result transmit arvind reference range : <=37. The reference range was not used to interpr et this result as mario l/abnormal. [facility] HospitalNxvcgimMDRRXDXNRXSI8815-34-58 02:01:00 Test Item Value Reference Range Interpretation Comments ALT (test code = ALT) 42 See_Comment [Auto mated message] The system which ge nerated this result transmit arvind reference range : <=65. The reference range was not used to interpr et this result as mario l/abnormal. [facility] HospitalAxmdpffESHWHEMYOCBS2866-47-90 02:01:00 Test Item Value Reference Range Interpretation Comments Albumin Lvl (test code = Albumin Lvl) 3.8 3.5-5.0 [facility] HospitalTejrpjfKSOFJIHFTOQH5552-65-60 02:01:00 Test Item Value Reference Range Interpretation Comments Sodium Lvl (test code = Sodium Lvl) 139 135-145 [facility] HospitalVukimfsTYWQYXLKIJSG0619-23-42 02:01:00 Test Item Value Reference Range Interpretation Comments Chloride Lvl (test code = Chloride Lvl) 106 95-109 [facility] HospitalBeedzuxFJVZSPEDXZRE4148-41-31 02:01:00 Test Item Value Reference Range Interpretation Comments Potassium Lvl (test code = Potassium 3.7 3.5-5.1 Lvl) [facility]ownBlvphazHRQQOZFWPU5033-30-48 02:01:00 Test Item Value Reference Range Interpretation Comments RDW (test code = RDW) 16.9 11.5-14.5 [facility] HospitalNlqzdjwCMWSROLZOEXG3402-91-81 02:01:00 Test Item Value Reference Range Interpretation Comments BUN (test code = BUN) 10 7-22 [facility] HospitalFoakwvbIXGVXOAKLGHW7156-07-29 02:01:00 Test Item Value Reference Range Interpretation Comments Glucose Lvl (test code = Glucose Lvl) 88 70-99 [facility] HospitalTmdntciQRCURJKAXJXM5544-62-79 02:01:00 Test Item Value Reference Range Interpretation Comments Creatinine Lvl (test code = Creatinine 0.76 0.50-1.40 Lvl) [facility]ptownJvazwtxHAAYNAGGXX1096-09-48 02:01:00 Test Item Value Reference Range Interpretation Comments Segs-Bands # (test code = Segs-Bands #) 5.4 1.5-8.1 [facility]ptownYjjfffoCSIABFPNXK6619-17-63 02:01:00 Test Item Value Reference Range Interpretation Comments Basophils (test code = 1.0 See_Comment [Aut omated message] The Basophils) system which ge nerated this result tra nsmitted reference range : <=1.0. The reference r kat was not used to int erpret this result as normal/abnormal . [facility]ownTpjrnjjNMHTANARJQ0659-90-11 02:01:00 Test Item Value Reference Range Interpretation Comments Monocytes # (test code 0.7 See_Comment [Aut omated message] The = Monocytes #) system which generated this result tra nsmitted reference range : <=0.8. The reference r kat was not used to int erpret this result as normal/abnormal . [facility]ownPxmtraqXIKQZTTXDA1402-49-21 02:01:00 Test Item Value Reference Range Interpretation Comments Lymphocytes (test code = Lymphocytes) 35.1 20.0-40.0 [facility]ownBgvrpqjRKMPMVSYFL9379-90-28 02:01:00 Test Item Value Reference Range Interpretation Comments Lymphocytes # (test code = Lymphocytes 3.5 1.0-5.5 #) [facility] UptownGexkeakQQBGPKCMTW6811-17-76 02:01:00 Test Item Value Reference Range Interpretation Comments Monocytes (test code = Monocytes) 6.7 2.0-12.0 [facility]ptownZyoyqrlORHHGOULYF1166-68-03 02:01:00 Test Item Value Reference Range Interpretation Comments Segs (test code = Segs) 54.8 45.0-75.0 [facility]ptownRfwamfkFUXMFDEMOP1268-71-49 02:01:00 Test Item Value Reference Range Interpretation Comments Platelet (test code = Platelet) 208 133-450 [facility]ptownPbmypqtXBMRBSQBTP2845-20-51 02:01:00 Test Item Value Reference Range Interpretation Comments Eosinophils (test code = 2.4 See_Comment [A utomated message] The Eosinophils) system which ge nerated this result tra nsmitted reference range : <=4.0. The reference r kat was not used to int erpret this result as normal/abnormal . [facility]ptownRbsitqoXEHUQDAFIM2049-84-43 02:01:00 Test Item Value Reference Range Interpretation Comments Basophils # (test code 0.1 See_Comment [Aut omated message] The = Basophils #) system which generated this result tra nsmitted reference range : <=0.2. The reference r kat was not used to int erpret this result as normal/abnormal . [facility]ownArhnxdxBCQLRUKEZQ1422-77-53 02:01:00 Test Item Value Reference Range Interpretation Comments Microcyte (test code = 1+ *ABN*(09/17/15 Microcyte) 8:01 PM) [facility]ownAwgaqjaTMJLKTQHVP7369-93-97 02:01:00 Test Item Value Reference Range Interpretation Comments Eosinophils # (test code 0.2 See_Comment [A utomated message] The = Eosinophils #) system whic h generated this result tra nsmitted reference range : <=0.5. The reference r kat was not used to int erpret this result as normal/abnormal . [facility]ptownXtnixpiCPHPLQDIEY3580-77-92 02:01:00 Test Item Value Reference Range Interpretation Comments MPV (test code = MPV) 10.0 7.4-10.4 [facility]ptownHhbflgeMYQALDTFBL9675-48-47 02:01:00 Test Item Value Reference Range Interpretation Comments RDW (test code = RDW) 16.9 11.5-14.5 [facility]ptownYbhstvqCRXQALRIPY2996-67-30 02:01:00 Test Item Value Reference Range Interpretation Comments Platelet (test code = Platelet) 208 133-450 [facility]ptownUfuhauwXTTBYHDMWC0833-48-99 02:01:00 Test Item Value Reference Range Interpretation Comments MCV (test code = MCV) 77.9 80.0-98.0 [facility] UptownUuigijePBUTPKFVYR5959-75-51 02:01:00 Test Item Value Reference Range Interpretation Comments MCH (test code = MCH) 24.2 pg 27.0-31.0 [facility] UptownGmaeurzVVVAJMPGQW8366-94-13 02:01:00 Test Item Value Reference Range Interpretation Comments MCHC (test code = MCHC) 31.1 32.0-36.0 [facility]ptownFddcumkNJUCADWXIO9674-96-31 02:01:00 Test Item Value Reference Range Interpretation Comments MCV (test code = MCV) 77.9 80.0-98.0 [facility]ptownHxtosvqMPNLQGCASI0013-78-96 02:01:00 Test Item Value Reference Range Interpretation Comments Hgb (test code = Hgb) 13.3 12.0-16.0 [facility]ptownMfekcmtCHEZMKFSLC6966-44-64 02:01:00 Test Item Value Reference Range Interpretation Comments Hct (test code = Hct) 42.6 36.0-48.0 [facility] UptownSacybdaSWIPRKLIVW3869-57-13 02:01:00 Test Item Value Reference Range Interpretation Comments WBC (test code = WBC) 9.9 3.7-10.4 [facility]ptownYupaanbODEUFGIRCZ1979-44-53 02:01:00 Test Item Value Reference Range Interpretation Comments RBC (test code = RBC) 5.47 4.20-5.40 [facility] UptownKlwkbehDOMOBPMLDJ3378-98-46 02:01:00 Test Item Value Reference Range Interpretation Comments MCH (test code = MCH) 24.2 pg 27.0-31.0 [facility]ptownIsneugdSFILKOSCVG3798-30-15 02:01:00 Test Item Value Reference Range Interpretation Comments MCHC (test code = MCHC) 31.1 32.0-36.0 [facility]ptownNnszsqkHDKWOZCKKF7336-30-76 02:01:00 Test Item Value Reference Range Interpretation Comments Hgb (test code = Hgb) 13.3 12.0-16.0 [facility]ptownIutvtfoNVHIBAKGFC3979-33-35 02:01:00 Test Item Value Reference Range Interpretation Comments Hct (test code = Hct) 42.6 36.0-48.0 [facility]ownHvbxlbqWXEZJFNAUQ1113-26-67 02:01:00 Test Item Value Reference Range Interpretation Comments WBC (test code = WBC) 9.9 3.7-10.4 [facility]ptownLyyqqswPYEIECRXIQ7377-27-51 02:01:00 Test Item Value Reference Range Interpretation Comments RBC (test code = RBC) 5.47 4.20-5.40 [facility]2016-01-20 02:01:00 Test Item Value Reference Range Interpretation Comments Lipase Lvl (test code = Lipase Lvl) 196 73-393 [facility]2016-01-20 02:01:00 Test Item Value Reference Range Interpretation Comments Amylase Lvl (test code = Amylase Lvl) 33 25-115 [facility] HospitalDueygmvGNOBWBJMPMOU4278-04-71 02:01:00 Test Item Value Reference Range Interpretation Comments AGAP (test code = AGAP) 10.7 10.0-20.0 [facility] HospitalNzjsricXHCEEYFTCSQQ6488-63-90 02:01:00 Test Item Value Reference Range Interpretation Comments A/G Ratio (test code = A/G Ratio) 1.2 0.7-1.6 [facility] HospitalQcemzkyCRGQUVMZILOO0099-55-72 02:01:00 Test Item Value Reference Range Interpretation Comments Globulin (test code = Globulin) 3.1 2.0-4.0 [facility] HospitalTihxjhaEWLIJLBSTNUM7757-33-93 02:01:00 Test Item Value Reference Range Interpretation Comments B/C Ratio (test code = B/C Ratio) 13 6-25 [facility] HospitalNqodhvjRUFDFKTIDMSM8661-14-93 02:01:00 Test Item Value Reference Range Interpretation Comments Total Protein (test code = Total 6.9 6.4-8.4 Protein) [facility] HospitalSfmvvcjZJJDMBDYPCDA7399-02-32 02:01:00 Test Item Value Reference Range Interpretation Comments Calcium Lvl (test code = Calcium Lvl) 9.0 8.5-10.5 [facility] HospitalWuodlvvJUIKKAYILVCO1089-81-26 02:01:00 Test Item Value Reference Range Interpretation Comments CO2 (test code = CO2) 26 24-32 [facility] HospitalMqweaxeYMVKGRZURHLZ9891-54-16 02:01:00 Test Item Value Reference Range Interpretation Comments eGFR (test code = eGFR) 110 [facility] HospitalLukgaqlZSZQKYEMMDZG3468-90-09 02:01:00 Test Item Value Reference Range Interpretation Comments Bili Total (test code = Bili Total) 0.3 0.2-1.3 [facility] HospitalPpkzbdcCAJWZCIDUOMV1110-57-91 02:01:00 Test Item Value Reference Range Interpretation Comments Alk Phos (test code = Alk Phos) 84 39-136 [facility] HospitalRlbuzglDEPRNSZBOTRY4104-39-81 02:01:00 Test Item Value Reference Range Interpretation Comments AST (test code = AST) 17 See_Comment [Auto mated message] The system which ge nerated this result transmit arvind reference range : <=37. The reference range was not used to interpr et this result as mario l/abnormal. [facility] [facility]YIGZ2448-37-72 02:01:00 Test Item Value Reference Range Interpretation Comments ALT (test code = ALT) 42 See_Comment [Auto mated message] The system which ge nerated this result transmit arvind reference range : <=65. The reference range was not used to interpr et this result as mario l/abnormal. [facility]WzqbocvZWPAHLZXJQQW6683-05-00 02:01:00 Test Item Value Reference Range Interpretation Comments Albumin Lvl (test code = Albumin Lvl) 3.8 3.5-5.0 [facility] HospitalWgfoymtFQUIPJFKYFHR7491-59-94 02:01:00 Test Item Value Reference Range Interpretation Comments Sodium Lvl (test code = Sodium Lvl) 139 135-145 [facility] HospitalGoaaxoeIKIXMGKCLJUY8073-63-51 02:01:00 Test Item Value Reference Range Interpretation Comments Chloride Lvl (test code = Chloride Lvl) 106 95-109 [facility] HospitalWeaipuhYOZMHFPRMMFE0979-22-08 02:01:00 Test Item Value Reference Range Interpretation Comments Potassium Lvl (test code = Potassium 3.7 3.5-5.1 Lvl) [facility] HospitalTppiimoGZNYPHYXWTUI0242-18-08 02:01:00 Test Item Value Reference Range Interpretation Comments BUN (test code = BUN) 10 7-22 [facility] HospitalHpwutpxAWHBAWRSIQXI8062-53-09 02:01:00 Test Item Value Reference Range Interpretation Comments Glucose Lvl (test code = Glucose Lvl) 88 70-99 [facility] HospitalCpmwsifZZZTVCEAGJIM0435-30-43 02:01:00 Test Item Value Reference Range Interpretation Comments Creatinine Lvl (test code = Creatinine 0.76 0.50-1.40 Lvl) [facility]ownUbetgooMOEGHLSTKF9074-49-32 02:01:00 Test Item Value Reference Range Interpretation Comments Segs-Bands # (test code = Segs-Bands #) 5.4 1.5-8.1 [facility] UptownMvproiaAABEIXVESJ5280-41-47 02:01:00 Test Item Value Reference Range Interpretation Comments Basophils (test code = 1.0 See_Comment [Aut omated message] The Basophils) system which ge nerated this result tra nsmitted reference range : <=1.0. The reference r kat was not used to int erpret this result as normal/abnormal . [facility]ptownGbvqfghQIFSIBYZBN3547-19-29 02:01:00 Test Item Value Reference Range Interpretation Comments Monocytes # (test code 0.7 See_Comment [Aut omated message] The = Monocytes #) system which generated this result tra nsmitted reference range : <=0.8. The reference r kat was not used to int erpret this result as normal/abnormal . [facility]ptownXbwtukvJLWTZIQJAV1262-25-19 02:01:00 Test Item Value Reference Range Interpretation Comments Lymphocytes (test code = Lymphocytes) 35.1 20.0-40.0 [facility]ptownAmvtqjmKJCFKXPEGB2372-12-54 02:01:00 Test Item Value Reference Range Interpretation Comments Lymphocytes # (test code = Lymphocytes 3.5 1.0-5.5 #) [facility]ptownUksevrpUBJUDSQFKY5711-60-37 02:01:00 Test Item Value Reference Range Interpretation Comments Monocytes (test code = Monocytes) 6.7 2.0-12.0 [facility]ptownKhzwfqmZEWMQNYYTT7657-98-81 02:01:00 Test Item Value Reference Range Interpretation Comments Segs (test code = Segs) 54.8 45.0-75.0 [facility]ptownYgqpnnqPZRKZYCAYF4108-58-93 02:01:00 Test Item Value Reference Range Interpretation Comments Eosinophils (test code = 2.4 See_Comment [A utomated message] The Eosinophils) system which ge nerated this result tra nsmitted reference range : <=4.0. The reference r kat was not used to int erpret this result as normal/abnormal . [facility]ptownWqmuqgmCFPLDFGKVF2063-05-86 02:01:00 Test Item Value Reference Range Interpretation Comments Basophils # (test code 0.1 See_Comment [Aut omated message] The = Basophils #) system which generated this result tra nsmitted reference range : <=0.2. The reference r kat was not used to int erpret this result as normal/abnormal . [facility] UptownBjxqrouSWWVCELMRD9271-40-36 02:01:00 Test Item Value Reference Range Interpretation Comments Microcyte (test code = 1+ *ABN*(09/17/15 Microcyte) 8:01 PM) [facility]ptownCjwhgpoTBBNOFYXWP5988-05-24 02:01:00 Test Item Value Reference Range Interpretation Comments Eosinophils # (test code 0.2 See_Comment [A utomated message] The = Eosinophils #) system whic h generated this result tra nsmitted reference range : <=0.5. The reference r kat was not used to int erpret this result as normal/abnormal . [facility] UptownXdvneluVCURXVUTHD9324-99-50 02:01:00 Test Item Value Reference Range Interpretation Comments MPV (test code = MPV) 10.0 7.4-10.4 [facility]ptownWjqbvohSXMVYPBKXQ5780-57-77 02:01:00 Test Item Value Reference Range Interpretation Comments RDW (test code = RDW) 16.9 11.5-14.5 [facility] UptownZgbvzamIRKCUQFHTQ5074-54-68 02:01:00 Test Item Value Reference Range Interpretation Comments Platelet (test code = Platelet) 208 133-450 [facility] UptownWvnijgsZHHHKXYAMM2863-31-99 02:01:00 Test Item Value Reference Range Interpretation Comments MCV (test code = MCV) 77.9 80.0-98.0 [facility] UptownGajhlknTKCDJDLHAY6485-54-46 02:01:00 Test Item Value Reference Range Interpretation Comments MCH (test code = MCH) 24.2 pg 27.0-31.0 [facility] UptownLmoddsgJHHFFTETUA1130-58-94 02:01:00 Test Item Value Reference Range Interpretation Comments MCHC (test code = MCHC) 31.1 32.0-36.0 [facility]ptownSdmmdxtPSOQEPVSRV7347-44-19 02:01:00 Test Item Value Reference Range Interpretation Comments Hgb (test code = Hgb) 13.3 12.0-16.0 [facility]ptownUiqvbneVJXCRXTMNN0610-49-56 02:01:00 Test Item Value Reference Range Interpretation Comments Hct (test code = Hct) 42.6 36.0-48.0 [facility] UptownDffjnqlHZEDOSORFZ1262-50-19 02:01:00 Test Item Value Reference Range Interpretation Comments WBC (test code = WBC) 9.9 3.7-10.4 [facility] UptownUjwyquiXYIWUFMYEU8700-14-76 02:01:00 Test Item Value Reference Range Interpretation Comments RBC (test code = RBC) 5.47 4.20-5.40 [facility]2016-01-20 02:01:00 Test Item Value Reference Range Interpretation Comments Lipase Lvl (test code = Lipase Lvl) 196 73-393 [facility]2016-01-20 02:01:00 Test Item Value Reference Range Interpretation Comments Amylase Lvl (test code = Amylase Lvl) 33 25-115 [facility] HospitalIyqqyfpMECSKWBMFZWR9882-36-70 02:01:00 Test Item Value Reference Range Interpretation Comments AGAP (test code = AGAP) 10.7 10.0-20.0 [facility] HospitalKeylhyoEARAPLFILYEV2434-19-93 02:01:00 Test Item Value Reference Range Interpretation Comments A/G Ratio (test code = A/G Ratio) 1.2 0.7-1.6 [facility] HospitalEebotjdJXBALELXGYQR6230-62-71 02:01:00 Test Item Value Reference Range Interpretation Comments Globulin (test code = Globulin) 3.1 2.0-4.0 [facility] HospitalNexujfbDWGKWUSYJYKW3417-51-45 02:01:00 Test Item Value Reference Range Interpretation Comments B/C Ratio (test code = B/C Ratio) 13 6-25 [facility] HospitalLnfmuhwTOSLDKOKIKBT5143-59-38 02:01:00 Test Item Value Reference Range Interpretation Comments Total Protein (test code = Total 6.9 6.4-8.4 Protein) [facility] HospitalVowhflbTYZRBSOUIZRK9351-57-59 02:01:00 Test Item Value Reference Range Interpretation Comments Calcium Lvl (test code = Calcium Lvl) 9.0 8.5-10.5 [facility] HospitalUdynurpRUXIIMCDYAQS5236-02-16 02:01:00 Test Item Value Reference Range Interpretation Comments CO2 (test code = CO2) 26 24-32 [facility] HospitalUnuhmziDUMHZPLVXSBF3142-13-02 02:01:00 Test Item Value Reference Range Interpretation Comments eGFR (test code = eGFR) 110 [facility] HospitalGrintldOZRVUYBIPYAY9810-90-20 02:01:00 Test Item Value Reference Range Interpretation Comments Bili Total (test code = Bili Total) 0.3 0.2-1.3 [facility] HospitalLsmdifxQRQBQFWOKDXG7758-05-30 02:01:00 Test Item Value Reference Range Interpretation Comments Alk Phos (test code = Alk Phos) 84 39-136 [facility] HospitalXkqtthjTPHQSVYZHQPD7881-69-11 02:01:00 Test Item Value Reference Range Interpretation Comments AST (test code = AST) 17 See_Comment [Auto mated message] The system which ge nerated this result transmit arvind reference range : <=37. The reference range was not used to interpr et this result as mario l/abnormal. [facility] HospitalTtikrfgHJUHXEXXJYIR4771-32-95 02:01:00 Test Item Value Reference Range Interpretation Comments ALT (test code = ALT) 42 See_Comment [Auto mated message] The system which ge nerated this result transmit arvind reference range : <=65. The reference range was not used to interpr et this result as mario l/abnormal. [facility] HospitalNwewwflTVIBHMJWNUWP8366-41-88 02:01:00 Test Item Value Reference Range Interpretation Comments Albumin Lvl (test code = Albumin Lvl) 3.8 3.5-5.0 [facility] HospitalWpzszgiTUGIIDKIHHLV6710-49-75 02:01:00 Test Item Value Reference Range Interpretation Comments Sodium Lvl (test code = Sodium Lvl) 139 135-145 [facility] HospitalCbhjfhePFRSMUCRBHME2999-23-30 02:01:00 Test Item Value Reference Range Interpretation Comments Chloride Lvl (test code = Chloride Lvl) 106 95-109 [facility] HospitalJghdfvyTJJORIMLXGTQ3435-64-57 02:01:00 Test Item Value Reference Range Interpretation Comments Potassium Lvl (test code = Potassium 3.7 3.5-5.1 Lvl) [facility] HospitalTdibdvkXWSMQFEQNNBK7877-70-18 02:01:00 Test Item Value Reference Range Interpretation Comments BUN (test code = BUN) 10 7-22 [facility] HospitalWwjkfjpVIVGQGJATEDO5504-78-33 02:01:00 Test Item Value Reference Range Interpretation Comments Glucose Lvl (test code = Glucose Lvl) 88 70-99 [facility] HospitalHnmeuzoTAULUIZUXHFT1029-36-67 02:01:00 Test Item Value Reference Range Interpretation Comments Creatinine Lvl (test code = Creatinine 0.76 0.50-1.40 Lvl) [facility]ptownJhobscvDOXGNLHYWT9831-51-68 02:01:00 Test Item Value Reference Range Interpretation Comments Segs-Bands # (test code = Segs-Bands #) 5.4 1.5-8.1 [facility]ptownLaawdfdJLGUNGZUBN2895-54-24 02:01:00 Test Item Value Reference Range Interpretation Comments Basophils (test code = 1.0 See_Comment [Aut omated message] The Basophils) system which ge nerated this result tra nsmitted reference range : <=1.0. The reference r kat was not used to int erpret this result as normal/abnormal . [facility] UptownMjtktwxXDDJJEULAD5860-96-53 02:01:00 Test Item Value Reference Range Interpretation Comments Monocytes # (test code 0.7 See_Comment [Aut omated message] The = Monocytes #) system which generated this result tra nsmitted reference range : <=0.8. The reference r kat was not used to int erpret this result as normal/abnormal . [facility] UptownLrfojrwAQDMMWRARK9551-14-90 02:01:00 Test Item Value Reference Range Interpretation Comments Lymphocytes (test code = Lymphocytes) 35.1 20.0-40.0 [facility] UptownRdxtbexZRDCHQPWKX0831-15-89 02:01:00 Test Item Value Reference Range Interpretation Comments Lymphocytes # (test code = Lymphocytes 3.5 1.0-5.5 #) [facility]ptownMkjqjehOOCAOQXDHM7945-76-00 02:01:00 Test Item Value Reference Range Interpretation Comments Monocytes (test code = Monocytes) 6.7 2.0-12.0 [facility] UptownPjmqeheQAUCVGVTLB5303-36-60 02:01:00 Test Item Value Reference Range Interpretation Comments Segs (test code = Segs) 54.8 45.0-75.0 [facility] UptownZbtrrerBITYAMULRD3219-77-82 02:01:00 Test Item Value Reference Range Interpretation Comments Eosinophils (test code = 2.4 See_Comment [A utomated message] The Eosinophils) system which ge nerated this result tra nsmitted reference range : <=4.0. The reference r kat was not used to int erpret this result as normal/abnormal . [facility] UptownKqifincVSWLUBNVZC9212-36-19 02:01:00 Test Item Value Reference Range Interpretation Comments Basophils # (test code 0.1 See_Comment [Aut omated message] The = Basophils #) system which generated this result tra nsmitted reference range : <=0.2. The reference r kat was not used to int erpret this result as normal/abnormal . [facility] UptownYyywtgdIIQQFEXMLV6389-84-41 02:01:00 Test Item Value Reference Range Interpretation Comments Microcyte (test code = 1+ *ABN*(09/17/15 Microcyte) 8:01 PM) [facility]ptownWlkkwveLGJSSHVUHL5360-22-59 02:01:00 Test Item Value Reference Range Interpretation Comments Eosinophils # (test code 0.2 See_Comment [A utomated message] The = Eosinophils #) system whic h generated this result tra nsmitted reference range : <=0.5. The reference r kat was not used to int erpret this result as normal/abnormal . [facility] UptownCxurgyxRGPUSBXPOW3703-35-84 02:01:00 Test Item Value Reference Range Interpretation Comments MPV (test code = MPV) 10.0 7.4-10.4 [facility] UptownSbatgtsEDAEJDMVOV6120-26-72 02:01:00 Test Item Value Reference Range Interpretation Comments RDW (test code = RDW) 16.9 11.5-14.5 [facility] UptownNaldcteRWRVNIDOMT2114-77-44 02:01:00 Test Item Value Reference Range Interpretation Comments Platelet (test code = Platelet) 208 133-450 [facility] UptownIotfzxhVNWJDXDXLR4858-37-59 02:01:00 Test Item Value Reference Range Interpretation Comments MCV (test code = MCV) 77.9 80.0-98.0 [facility] UptownVoulldvYUDSEPOMXZ8570-79-99 02:01:00 Test Item Value Reference Range Interpretation Comments MCH (test code = MCH) 24.2 pg 27.0-31.0 [facility] UptownTieefilSDBDRLGLES0732-92-96 02:01:00 Test Item Value Reference Range Interpretation Comments MCHC (test code = MCHC) 31.1 32.0-36.0 [facility] UptownNfupdkgCUDIXDPWJP3790-70-62 02:01:00 Test Item Value Reference Range Interpretation Comments Hgb (test code = Hgb) 13.3 12.0-16.0 [facility] UptownXfevlvsDCWFAWIFEE2958-09-11 02:01:00 Test Item Value Reference Range Interpretation Comments Hct (test code = Hct) 42.6 36.0-48.0 [facility] UptownLhwmmkfQSWBUFQXLB7341-52-17 02:01:00 Test Item Value Reference Range Interpretation Comments WBC (test code = WBC) 9.9 3.7-10.4 [facility] UptownGhtvfejRXBFWPYWNQ9325-72-37 02:01:00 Test Item Value Reference Range Interpretation Comments RBC (test code = RBC) 5.47 4.20-5.40 [facility]2016-01-20 02:01:00 Test Item Value Reference Range Interpretation Comments Lipase Lvl (test code = Lipase Lvl) 196 73-393 [facility] JABZY5371-49-22 02:01:00 Test Item Value Reference Range Interpretation Comments Amylase Lvl (test code = Amylase Lvl) 33 25-115 [facility] HospitalUcagcqiZUGPSGNHKYLW9567-66-59 02:01:00 Test Item Value Reference Range Interpretation Comments AGAP (test code = AGAP) 10.7 10.0-20.0 [facility] HospitalXacexqmJCWEWMSKVFZV9995-90-37 02:01:00 Test Item Value Reference Range Interpretation Comments A/G Ratio (test code = A/G Ratio) 1.2 0.7-1.6 [facility] HospitalZususkqDIRUHZYZAKRF2504-36-17 02:01:00 Test Item Value Reference Range Interpretation Comments Globulin (test code = Globulin) 3.1 2.0-4.0 [facility] HospitalZjvpcfgETUZTQYHSQCO6175-04-02 02:01:00 Test Item Value Reference Range Interpretation Comments B/C Ratio (test code = B/C Ratio) 13 6-25 [facility] HospitalCgpekulYJWRXYDBGBGC9841-53-33 02:01:00 Test Item Value Reference Range Interpretation Comments Total Protein (test code = Total 6.9 6.4-8.4 Protein) [facility] HospitalLdcyglmVLUTAABSQNBF9240-50-01 02:01:00 Test Item Value Reference Range Interpretation Comments Calcium Lvl (test code = Calcium Lvl) 9.0 8.5-10.5 [facility] HospitalNysfxvcLOENRRREWQDH6537-84-65 02:01:00 Test Item Value Reference Range Interpretation Comments CO2 (test code = CO2) 26 24-32 [facility] HospitalSfplsxlGXAFPLCQTBPZ7593-34-12 02:01:00 Test Item Value Reference Range Interpretation Comments eGFR (test code = eGFR) 110 [facility] HospitalQpzvxwaIXKHMCBGCBLR5090-35-78 02:01:00 Test Item Value Reference Range Interpretation Comments Bili Total (test code = Bili Total) 0.3 0.2-1.3 [facility] HospitalSipcakxVLBOPBMBYNRB3341-10-60 02:01:00 Test Item Value Reference Range Interpretation Comments Alk Phos (test code = Alk Phos) 84 39-136 [facility] HospitalXfttyogGKJUWZFMNVGR4511-52-27 02:01:00 Test Item Value Reference Range Interpretation Comments AST (test code = AST) 17 See_Comment [Auto mated message] The system which ge nerated this result transmit arvind reference range : <=37. The reference range was not used to interpr et this result as mario l/abnormal. [facility] HospitalVwjuxnsBSSJYONIKUTV8520-12-37 02:01:00 Test Item Value Reference Range Interpretation Comments ALT (test code = ALT) 42 See_Comment [Auto mated message] The system which ge nerated this result transmit arvind reference range : <=65. The reference range was not used to interpr et this result as mario l/abnormal. [facility] HospitalYwjzawfNANIXOQYVZYT8691-78-14 02:01:00 Test Item Value Reference Range Interpretation Comments Albumin Lvl (test code = Albumin Lvl) 3.8 3.5-5.0 [facility] HospitalAwrihlpFUIDGKSOUQHB5463-14-66 02:01:00 Test Item Value Reference Range Interpretation Comments Sodium Lvl (test code = Sodium Lvl) 139 135-145 [facility] HospitalLitueatNZFFCOMCWXTM5292-06-21 02:01:00 Test Item Value Reference Range Interpretation Comments Chloride Lvl (test code = Chloride Lvl) 106 95-109 [facility] HospitalXebtfnyFHSKFGLYXRTH0743-19-75 02:01:00 Test Item Value Reference Range Interpretation Comments Potassium Lvl (test code = Potassium 3.7 3.5-5.1 Lvl) [facility] HospitalDfxjizbNMSYEWJEDDLF4698-65-63 02:01:00 Test Item Value Reference Range Interpretation Comments BUN (test code = BUN) 10 7-22 [facility] HospitalZuxtvnvSZYGUYGUAVPV3326-51-98 02:01:00 Test Item Value Reference Range Interpretation Comments Glucose Lvl (test code = Glucose Lvl) 88 70-99 [facility] HospitalEnafvrpCWACTDLCSGOW7387-78-92 02:01:00 Test Item Value Reference Range Interpretation Comments Creatinine Lvl (test code = Creatinine 0.76 0.50-1.40 Lvl) [facility]ptownLgnonofTPQEULCMWV1507-32-65 02:01:00 Test Item Value Reference Range Interpretation Comments Segs-Bands # (test code = Segs-Bands #) 5.4 1.5-8.1 [facility] UptownXwpltbeEDMCIDANLD5985-33-91 02:01:00 Test Item Value Reference Range Interpretation Comments Basophils (test code = 1.0 See_Comment [Aut omated message] The Basophils) system which ge nerated this result tra nsmitted reference range : <=1.0. The reference r akt was not used to int erpret this result as normal/abnormal . [facility] UptownTypccpyDEHERCWBLM3094-75-13 02:01:00 Test Item Value Reference Range Interpretation Comments Monocytes # (test code 0.7 See_Comment [Aut omated message] The = Monocytes #) system which generated this result tra nsmitted reference range : <=0.8. The reference r kat was not used to int erpret this result as normal/abnormal . [facility]ptownGrpbgklIOTUIINQHP5319-35-74 02:01:00 Test Item Value Reference Range Interpretation Comments Lymphocytes (test code = Lymphocytes) 35.1 20.0-40.0 [facility] UptownYojzdlzCHUIGSLUOQ7433-09-90 02:01:00 Test Item Value Reference Range Interpretation Comments Lymphocytes # (test code = Lymphocytes 3.5 1.0-5.5 #) [facility] UptownUoittuxDQCYYIPTXI5309-54-40 02:01:00 Test Item Value Reference Range Interpretation Comments Monocytes (test code = Monocytes) 6.7 2.0-12.0 [facility] UptownPfctcmmUMLNLEGKJY7027-33-47 02:01:00 Test Item Value Reference Range Interpretation Comments Segs (test code = Segs) 54.8 45.0-75.0 [facility]ptownEfocgfmRYTMDXYOQQ4114-43-70 02:01:00 Test Item Value Reference Range Interpretation Comments Eosinophils (test code = 2.4 See_Comment [A utomated message] The Eosinophils) system which ge nerated this result tra nsmitted reference range : <=4.0. The reference r kat was not used to int erpret this result as normal/abnormal . [facility] UptownTuumdweCTHDVRRVYT0677-72-56 02:01:00 Test Item Value Reference Range Interpretation Comments Basophils # (test code 0.1 See_Comment [Aut omated message] The = Basophils #) system which generated this result tra nsmitted reference range : <=0.2. The reference r kat was not used to int erpret this result as normal/abnormal . [facility] UptownHdthojySVIJLHTFWP7693-41-30 02:01:00 Test Item Value Reference Range Interpretation Comments Microcyte (test code = 1+ *ABN*(09/17/15 Microcyte) 8:01 PM) [facility] UptownNzoehecWWAQYPVJAN3592-56-79 02:01:00 Test Item Value Reference Range Interpretation Comments Eosinophils # (test code 0.2 See_Comment [A utomated message] The = Eosinophils #) system whic h generated this result tra nsmitted reference range : <=0.5. The reference r kat was not used to int erpret this result as normal/abnormal . [facility] UptownWlryuvmBMOEVYYGAE1257-87-73 02:01:00 Test Item Value Reference Range Interpretation Comments MPV (test code = MPV) 10.0 7.4-10.4 [facility] UptownNaxcuzlMOGTPKQTEN1349-93-09 02:01:00 Test Item Value Reference Range Interpretation Comments RDW (test code = RDW) 16.9 11.5-14.5 [facility] UptownLjzcmfpRUHIXCCBCP1918-89-31 02:01:00 Test Item Value Reference Range Interpretation Comments Platelet (test code = Platelet) 208 133-450 [facility] UptownBeqlgtqSWZTONRGRQ2414-76-53 02:01:00 Test Item Value Reference Range Interpretation Comments MCV (test code = MCV) 77.9 80.0-98.0 [facility] UptownQdmxbczDWSPAHVWWN0608-61-30 02:01:00 Test Item Value Reference Range Interpretation Comments MCH (test code = MCH) 24.2 pg 27.0-31.0 [facility] UptownXnuwtaeBGILIJRORW3380-10-64 02:01:00 Test Item Value Reference Range Interpretation Comments MCHC (test code = MCHC) 31.1 32.0-36.0 [facility] UptownFpjsfmqOPFZEOGWHE2304-72-20 02:01:00 Test Item Value Reference Range Interpretation Comments Hgb (test code = Hgb) 13.3 12.0-16.0 [facility] UptownStjpjjhMVGKJPSPLO3370-18-56 02:01:00 Test Item Value Reference Range Interpretation Comments Hct (test code = Hct) 42.6 36.0-48.0 [facility] UptownNvkyxieJFVHHSGBPU7142-89-92 02:01:00 Test Item Value Reference Range Interpretation Comments WBC (test code = WBC) 9.9 3.7-10.4 [facility] UptownBaihegkXOTEFPFQZB4529-94-61 02:01:00 Test Item Value Reference Range Interpretation Comments RBC (test code = RBC) 5.47 4.20-5.40 [facility]2016-01-20 02:01:00 Test Item Value Reference Range Interpretation Comments Lipase Lvl (test code = Lipase Lvl) 196 73-393 [facility]2016-01-20 02:01:00 Test Item Value Reference Range Interpretation Comments Amylase Lvl (test code = Amylase Lvl) 33 25-115 [facility] HospitalHsuyyzkGVUJMGLBCUJD2542-57-09 02:01:00 Test Item Value Reference Range Interpretation Comments AGAP (test code = AGAP) 10.7 10.0-20.0 [facility] HospitalSvhwavlXFTAQURVZOUH8016-41-87 02:01:00 Test Item Value Reference Range Interpretation Comments A/G Ratio (test code = A/G Ratio) 1.2 0.7-1.6 [facility] HospitalIchldglVBXDTHOJBAWD0571-72-65 02:01:00 Test Item Value Reference Range Interpretation Comments Globulin (test code = Globulin) 3.1 2.0-4.0 [facility] HospitalPuzkilvOCZZAKXNBUMB3842-28-31 02:01:00 Test Item Value Reference Range Interpretation Comments B/C Ratio (test code = B/C Ratio) 13 6-25 [facility] HospitalZojozkiVZOZGOGENKCT6085-92-57 02:01:00 Test Item Value Reference Range Interpretation Comments Total Protein (test code = Total 6.9 6.4-8.4 Protein) [facility] HospitalVxkspboRBIGVIKOCBEI4695-10-39 02:01:00 Test Item Value Reference Range Interpretation Comments Calcium Lvl (test code = Calcium Lvl) 9.0 8.5-10.5 [facility] HospitalGslaeiwPXZAHKTSKSFY6125-54-53 02:01:00 Test Item Value Reference Range Interpretation Comments CO2 (test code = CO2) 26 24-32 [facility] HospitalVlhmgrvWEJBTSMGWXXT4654-35-04 02:01:00 Test Item Value Reference Range Interpretation Comments eGFR (test code = eGFR) 110 [facility] HospitalPjzkzzwYGXARKPQJCMM6884-89-16 02:01:00 Test Item Value Reference Range Interpretation Comments Bili Total (test code = Bili Total) 0.3 0.2-1.3 [facility] HospitalSzzxyjrCIDTKNVTQZMT2053-87-94 02:01:00 Test Item Value Reference Range Interpretation Comments Alk Phos (test code = Alk Phos) 84 39-136 [facility] HospitalWupykctOEVYJHNNHNKV5584-41-94 02:01:00 Test Item Value Reference Range Interpretation Comments AST (test code = AST) 17 See_Comment [Auto mated message] The system which ge nerated this result transmit arvind reference range : <=37. The reference range was not used to interpr et this result as mario l/abnormal. [facility] HospitalYjsygvbAPSXZXIOEOXL5309-49-35 02:01:00 Test Item Value Reference Range Interpretation Comments ALT (test code = ALT) 42 See_Comment [Auto mated message] The system which ge nerated this result transmit arvind reference range : <=65. The reference range was not used to interpr et this result as mario l/abnormal. [facility] HospitalTyyzbthSHSVLRYMDPOE8636-75-71 02:01:00 Test Item Value Reference Range Interpretation Comments Albumin Lvl (test code = Albumin Lvl) 3.8 3.5-5.0 [facility] HospitalDyaqdddSIZSVFJHJMPF9403-85-48 02:01:00 Test Item Value Reference Range Interpretation Comments Sodium Lvl (test code = Sodium Lvl) 139 135-145 [facility] HospitalQoqhbibWCNNWZASZPSG1006-73-88 02:01:00 Test Item Value Reference Range Interpretation Comments Chloride Lvl (test code = Chloride Lvl) 106 95-109 [facility] HospitalFxcbldnNWSUHIGNNODA4298-74-96 02:01:00 Test Item Value Reference Range Interpretation Comments Potassium Lvl (test code = Potassium 3.7 3.5-5.1 Lvl) [facility] HospitalYfahcdbNFHIHXSEXGSI9693-21-01 02:01:00 Test Item Value Reference Range Interpretation Comments BUN (test code = BUN) 10 7-22 [facility] HospitalYzmubrvPCOXOAKUWYEV9501-51-25 02:01:00 Test Item Value Reference Range Interpretation Comments Glucose Lvl (test code = Glucose Lvl) 88 70-99 [facility] HospitalFciqhkrJJVOHCECBBNE8905-57-25 02:01:00 Test Item Value Reference Range Interpretation Comments Creatinine Lvl (test code = Creatinine 0.76 0.50-1.40 Lvl) [facility]ownEbrfegoAWCSRMTAEM1378-72-04 02:01:00 Test Item Value Reference Range Interpretation Comments Segs-Bands # (test code = Segs-Bands #) 5.4 1.5-8.1 [facility]ptownUpsufbvFDZVXHFDQV2828-88-95 02:01:00 Test Item Value Reference Range Interpretation Comments Basophils (test code = 1.0 See_Comment [Aut omated message] The Basophils) system which ge nerated this result tra nsmitted reference range : <=1.0. The reference r kat was not used to int erpret this result as normal/abnormal . [facility] UptownGokhsfcVCPCBBSVBC3094-89-39 02:01:00 Test Item Value Reference Range Interpretation Comments Monocytes # (test code 0.7 See_Comment [Aut omated message] The = Monocytes #) system which generated this result tra nsmitted reference range : <=0.8. The reference r kat was not used to int erpret this result as normal/abnormal . [facility]ptownXiikgevLLZXBGZASF9704-30-00 02:01:00 Test Item Value Reference Range Interpretation Comments Lymphocytes (test code = Lymphocytes) 35.1 20.0-40.0 [facility] UptownCucdlxlAQOANMRWXW9401-08-73 02:01:00 Test Item Value Reference Range Interpretation Comments Lymphocytes # (test code = Lymphocytes 3.5 1.0-5.5 #) [facility] UptownObusmzaZKZHETAEIB2521-14-40 02:01:00 Test Item Value Reference Range Interpretation Comments Monocytes (test code = Monocytes) 6.7 2.0-12.0 [facility] UptownUiediuuGCCHKKUPJX3881-14-63 02:01:00 Test Item Value Reference Range Interpretation Comments Segs (test code = Segs) 54.8 45.0-75.0 [facility] UptownNzpymamATYNWTFUKV6896-67-37 02:01:00 Test Item Value Reference Range Interpretation Comments Eosinophils (test code = 2.4 See_Comment [A utomated message] The Eosinophils) system which ge nerated this result tra nsmitted reference range : <=4.0. The reference r kat was not used to int erpret this result as normal/abnormal . [facility] UptownDbkynzoEIOKJKTAEJ5711-00-98 02:01:00 Test Item Value Reference Range Interpretation Comments Basophils # (test code 0.1 See_Comment [Aut omated message] The = Basophils #) system which generated this result tra nsmitted reference range : <=0.2. The reference r kat was not used to int erpret this result as normal/abnormal . [facility]ptownCxtfngsAMOALOGBPK1775-70-36 02:01:00 Test Item Value Reference Range Interpretation Comments Microcyte (test code = 1+ *ABN*(09/17/15 Microcyte) 8:01 PM) [facility] UptownPagneopKJCRPWQNJN8115-58-63 02:01:00 Test Item Value Reference Range Interpretation Comments Eosinophils # (test code 0.2 See_Comment [A utomated message] The = Eosinophils #) system whic h generated this result tra nsmitted reference range : <=0.5. The reference r kat was not used to int erpret this result as normal/abnormal . [facility] UptownUxdelmcRLNMDRDTZP3164-60-50 02:01:00 Test Item Value Reference Range Interpretation Comments MPV (test code = MPV) 10.0 7.4-10.4 [facility] UptownEfofahbBQMRPZCUKD5202-33-24 02:01:00 Test Item Value Reference Range Interpretation Comments RDW (test code = RDW) 16.9 11.5-14.5 [facility] UptownEzdwlvdZQCRYXVBRQ8274-96-87 02:01:00 Test Item Value Reference Range Interpretation Comments Platelet (test code = Platelet) 208 133-450 [facility] UptownIzukdgtJWUUEUYRHW5949-40-66 02:01:00 Test Item Value Reference Range Interpretation Comments MCV (test code = MCV) 77.9 80.0-98.0 [facility] UptownOvdnrevSUSXIOTIAN8326-96-29 02:01:00 Test Item Value Reference Range Interpretation Comments MCH (test code = MCH) 24.2 pg 27.0-31.0 [facility] UptownSzcszuwVMRKFKFYJH3372-84-73 02:01:00 Test Item Value Reference Range Interpretation Comments MCHC (test code = MCHC) 31.1 32.0-36.0 [facility] UptownVqpqtbmCQDQERIDJG7058-20-14 02:01:00 Test Item Value Reference Range Interpretation Comments Hgb (test code = Hgb) 13.3 12.0-16.0 [facility] UptownFtuahqcPBFYUDKMZY9819-80-73 02:01:00 Test Item Value Reference Range Interpretation Comments Hct (test code = Hct) 42.6 36.0-48.0 [facility] UptownUaignacHYLHVYFREQ8886-44-71 02:01:00 Test Item Value Reference Range Interpretation Comments WBC (test code = WBC) 9.9 3.7-10.4 [facility]ptownEjuxljwXFBXRKLXVC4772-55-40 02:01:00 Test Item Value Reference Range Interpretation Comments RBC (test code = RBC) 5.47 4.20-5.40 [facility]2016-01-20 02:01:00 Test Item Value Reference Range Interpretation Comments Lipase Lvl (test code = Lipase Lvl) 196 73-393 [facility]2016-01-20 02:01:00 Test Item Value Reference Range Interpretation Comments Amylase Lvl (test code = Amylase Lvl) 33 25-115 [facility] HospitalTobnjsaOUYBPBFGBZOW4279-79-80 02:01:00 Test Item Value Reference Range Interpretation Comments AGAP (test code = AGAP) 10.7 10.0-20.0 [facility] HospitalHbtvesxLUVXPPTPEUAR6878-54-23 02:01:00 Test Item Value Reference Range Interpretation Comments A/G Ratio (test code = A/G Ratio) 1.2 0.7-1.6 [facility] HospitalYaglgojRAHJOJEUASSS5226-94-38 02:01:00 Test Item Value Reference Range Interpretation Comments Globulin (test code = Globulin) 3.1 2.0-4.0 [facility] HospitalSnackvhUCESHLDCJSIH9128-40-90 02:01:00 Test Item Value Reference Range Interpretation Comments B/C Ratio (test code = B/C Ratio) 13 6-25 [facility] HospitalYfjwnhiVKDEWNWTVRLL9052-15-25 02:01:00 Test Item Value Reference Range Interpretation Comments Total Protein (test code = Total 6.9 6.4-8.4 Protein) [facility] HospitalYcijhmxBNTDEGGHJHIF7252-45-81 02:01:00 Test Item Value Reference Range Interpretation Comments Calcium Lvl (test code = Calcium Lvl) 9.0 8.5-10.5 [facility] HospitalCxwfgxqFRFWNTHHJVAB7837-73-96 02:01:00 Test Item Value Reference Range Interpretation Comments CO2 (test code = CO2) 26 24-32 [facility] HospitalSnijayjYBYCFQRGLJLI2306-64-82 02:01:00 Test Item Value Reference Range Interpretation Comments eGFR (test code = eGFR) 110 [facility] HospitalUkvhmyaORKFDWPWMOMC4149-30-13 02:01:00 Test Item Value Reference Range Interpretation Comments Bili Total (test code = Bili Total) 0.3 0.2-1.3 [facility] HospitalEvrjwhzUKVNMQWTASUW7291-47-65 02:01:00 Test Item Value Reference Range Interpretation Comments Alk Phos (test code = Alk Phos) 84 39-136 [facility] HospitalUntmazsCQOYQFXPMEHB7330-54-86 02:01:00 Test Item Value Reference Range Interpretation Comments AST (test code = AST) 17 See_Comment [Auto mated message] The system which ge nerated this result transmit arvind reference range : <=37. The reference range was not used to interpr et this result as mario l/abnormal. [facility] HospitalFtsypudFEJXQDVYEXKL2338-29-42 02:01:00 Test Item Value Reference Range Interpretation Comments ALT (test code = ALT) 42 See_Comment [Auto mated message] The system which ge nerated this result transmit arvind reference range : <=65. The reference range was not used to interpr et this result as mario l/abnormal. [facility] HospitalCdxzrylSMMXGHETRKKE4526-98-86 02:01:00 Test Item Value Reference Range Interpretation Comments Albumin Lvl (test code = Albumin Lvl) 3.8 3.5-5.0 [facility] HospitalKvsisdzJHUQCJTTPFVJ6344-86-42 02:01:00 Test Item Value Reference Range Interpretation Comments Sodium Lvl (test code = Sodium Lvl) 139 135-145 [facility] HospitalXuojnygAXMKTJKDPDVV0068-28-20 02:01:00 Test Item Value Reference Range Interpretation Comments Chloride Lvl (test code = Chloride Lvl) 106 95-109 [facility] HospitalElzrtsvVOOYLZREEURF7137-40-48 02:01:00 Test Item Value Reference Range Interpretation Comments Potassium Lvl (test code = Potassium 3.7 3.5-5.1 Lvl) [facility] HospitalFsmpwgnFRDDBSMEDPTV5694-60-08 02:01:00 Test Item Value Reference Range Interpretation Comments BUN (test code = BUN) 10 7-22 [facility] HospitalQvvlblnWMAWAZTZXBCN9109-71-52 02:01:00 Test Item Value Reference Range Interpretation Comments Glucose Lvl (test code = Glucose Lvl) 88 70-99 [facility] HospitalXqktkfiDFHHAQEWVLTW0582-81-36 02:01:00 Test Item Value Reference Range Interpretation Comments Creatinine Lvl (test code = Creatinine 0.76 0.50-1.40 Lvl) [facility]ptownDimwjaxOWFDNIOZEJ1859-63-85 02:01:00 Test Item Value Reference Range Interpretation Comments Segs-Bands # (test code = Segs-Bands #) 5.4 1.5-8.1 [facility] UptownJghgoeiYNOEEUHDMJ9314-67-18 02:01:00 Test Item Value Reference Range Interpretation Comments Basophils (test code = 1.0 See_Comment [Aut omated message] The Basophils) system which ge nerated this result tra nsmitted reference range : <=1.0. The reference r kat was not used to int erpret this result as normal/abnormal . [facility] UptownTsgbpuqBIVGWYPOTS7083-30-35 02:01:00 Test Item Value Reference Range Interpretation Comments Monocytes # (test code 0.7 See_Comment [Aut omated message] The = Monocytes #) system which generated this result tra nsmitted reference range : <=0.8. The reference r kat was not used to int erpret this result as normal/abnormal . [facility] UptownMktovmxITWBBMBYRY2791-68-43 02:01:00 Test Item Value Reference Range Interpretation Comments Lymphocytes (test code = Lymphocytes) 35.1 20.0-40.0 [facility] UptownCstaydkAHFESYGIIM3604-60-53 02:01:00 Test Item Value Reference Range Interpretation Comments Lymphocytes # (test code = Lymphocytes 3.5 1.0-5.5 #) [facility]ptownJsrysvsQGXFTTIHIP9841-71-74 02:01:00 Test Item Value Reference Range Interpretation Comments Monocytes (test code = Monocytes) 6.7 2.0-12.0 [facility] UptownKpqliknQUHCMCINJQ4675-08-04 02:01:00 Test Item Value Reference Range Interpretation Comments Segs (test code = Segs) 54.8 45.0-75.0 [facility] UptownRuaiezvCIRBBYYJQL3224-02-69 02:01:00 Test Item Value Reference Range Interpretation Comments Eosinophils (test code = 2.4 See_Comment [A utomated message] The Eosinophils) system which ge nerated this result tra nsmitted reference range : <=4.0. The reference r kat was not used to int erpret this result as normal/abnormal . [facility] UptownPlesakyYUNWMTAAXH4685-93-36 02:01:00 Test Item Value Reference Range Interpretation Comments Basophils # (test code 0.1 See_Comment [Aut omated message] The = Basophils #) system which generated this result tra nsmitted reference range : <=0.2. The reference r kat was not used to int erpret this result as normal/abnormal . [facility] UptownYqukrocGCPOLAQFOL8163-24-83 02:01:00 Test Item Value Reference Range Interpretation Comments Microcyte (test code = 1+ *ABN*(09/17/15 Microcyte) 8:01 PM) [facility] UptownKsisgviDNMAUGTABF3148-58-29 02:01:00 Test Item Value Reference Range Interpretation Comments Eosinophils # (test code 0.2 See_Comment [A utomated message] The = Eosinophils #) system whic h generated this result tra nsmitted reference range : <=0.5. The reference r kat was not used to int erpret this result as normal/abnormal . [facility] UptownUrbqrzjBHTQDMCHWE8890-55-24 02:01:00 Test Item Value Reference Range Interpretation Comments MPV (test code = MPV) 10.0 7.4-10.4 [facility] UptownSwwxelmHAPUFZQPQL9417-29-85 02:01:00 Test Item Value Reference Range Interpretation Comments RDW (test code = RDW) 16.9 11.5-14.5 [facility] UptownFbseqzdHLKXMDIRDS0506-71-76 02:01:00 Test Item Value Reference Range Interpretation Comments Platelet (test code = Platelet) 208 133-450 [facility] UptownXhuvrcrJWYPJRPCUA9170-96-30 02:01:00 Test Item Value Reference Range Interpretation Comments MCV (test code = MCV) 77.9 80.0-98.0 [facility] UptownSxyechwBQUPCONRXH5486-53-68 02:01:00 Test Item Value Reference Range Interpretation Comments MCH (test code = MCH) 24.2 pg 27.0-31.0 [facility] UptownAhdumqwXKMEPJODQQ4867-39-65 02:01:00 Test Item Value Reference Range Interpretation Comments MCHC (test code = MCHC) 31.1 32.0-36.0 [facility] UptownAqxiwmhLQEPHXEPIN2524-07-01 02:01:00 Test Item Value Reference Range Interpretation Comments Hgb (test code = Hgb) 13.3 12.0-16.0 [facility] UptownPwroawhJRUOIDTVDR0986-68-72 02:01:00 Test Item Value Reference Range Interpretation Comments Hct (test code = Hct) 42.6 36.0-48.0 [facility] UptownLyvzicpEKTJBXKBHN6874-99-64 02:01:00 Test Item Value Reference Range Interpretation Comments WBC (test code = WBC) 9.9 3.7-10.4 [facility] UptownStyeknpRNEOMOKJBS4010-72-44 02:01:00 Test Item Value Reference Range Interpretation Comments RBC (test code = RBC) 5.47 4.20-5.40 [facility]2016-01-20 02:01:00 Test Item Value Reference Range Interpretation Comments Lipase Lvl (test code = Lipase Lvl) 196 73-393 [facility] SCBYB1336-99-04 02:01:00 Test Item Value Reference Range Interpretation Comments Amylase Lvl (test code = Amylase Lvl) 33 25-115 [facility] HospitalViwxsspSFIEIDEJPJGE4877-94-12 02:01:00 Test Item Value Reference Range Interpretation Comments AGAP (test code = AGAP) 10.7 10.0-20.0 [facility] HospitalBdfcgqxGYIPNEVMDVOQ8105-95-13 02:01:00 Test Item Value Reference Range Interpretation Comments A/G Ratio (test code = A/G Ratio) 1.2 0.7-1.6 [facility] HospitalTikkggpFZBBZEDVQPIK7429-78-65 02:01:00 Test Item Value Reference Range Interpretation Comments Globulin (test code = Globulin) 3.1 2.0-4.0 [facility] HospitalCriczsjJZNRNMSARWRK7108-42-83 02:01:00 Test Item Value Reference Range Interpretation Comments B/C Ratio (test code = B/C Ratio) 13 6-25 [facility] HospitalXcxvjdvCFCQVWDRAXWO4603-72-57 02:01:00 Test Item Value Reference Range Interpretation Comments Total Protein (test code = Total 6.9 6.4-8.4 Protein) [facility] HospitalFyothhiLNJZNODNZEWB1498-55-49 02:01:00 Test Item Value Reference Range Interpretation Comments Calcium Lvl (test code = Calcium Lvl) 9.0 8.5-10.5 [facility] HospitalJjkgiooGSODEAKVMQOP0089-26-75 02:01:00 Test Item Value Reference Range Interpretation Comments CO2 (test code = CO2) 26 24-32 [facility] HospitalAjyxgthLTGYIXZGUPKO2759-48-67 02:01:00 Test Item Value Reference Range Interpretation Comments eGFR (test code = eGFR) 110 [facility] HospitalLgmnonxUKRKWLTFAPFS6776-69-10 02:01:00 Test Item Value Reference Range Interpretation Comments Bili Total (test code = Bili Total) 0.3 0.2-1.3 [facility] HospitalLwckhzxEZFNGHGSGUJI1883-50-76 02:01:00 Test Item Value Reference Range Interpretation Comments Alk Phos (test code = Alk Phos) 84 39-136 [facility] HospitalAcdtlhnGGQICVKHODHJ5778-71-84 02:01:00 Test Item Value Reference Range Interpretation Comments AST (test code = AST) 17 See_Comment [Auto mated message] The system which ge nerated this result transmit arvind reference range : <=37. The reference range was not used to interpr et this result as mario l/abnormal. [facility] HospitalMzayagrIRELQPANZLAH0948-66-08 02:01:00 Test Item Value Reference Range Interpretation Comments ALT (test code = ALT) 42 See_Comment [Auto mated message] The system which ge nerated this result transmit arvind reference range : <=65. The reference range was not used to interpr et this result as mario l/abnormal. [facility] HospitalTakjqjwGHXNPULLGXMC9092-40-60 02:01:00 Test Item Value Reference Range Interpretation Comments Albumin Lvl (test code = Albumin Lvl) 3.8 3.5-5.0 [facility] HospitalCnplmaaSDBTVVSZCBCU5110-83-68 02:01:00 Test Item Value Reference Range Interpretation Comments Sodium Lvl (test code = Sodium Lvl) 139 135-145 [facility] HospitalEzyzbnaXSQBPBZZRQUT1645-76-98 02:01:00 Test Item Value Reference Range Interpretation Comments Chloride Lvl (test code = Chloride Lvl) 106 95-109 [facility] HospitalAwichwvIHAMJKUCWZLK9439-42-77 02:01:00 Test Item Value Reference Range Interpretation Comments Potassium Lvl (test code = Potassium 3.7 3.5-5.1 Lvl) [facility] HospitalFenjrnyECOPXATRGXWC3024-98-48 02:01:00 Test Item Value Reference Range Interpretation Comments BUN (test code = BUN) 10 7-22 [facility] HospitalMnfszyvTYUFHKIMXLKM7384-63-24 02:01:00 Test Item Value Reference Range Interpretation Comments Glucose Lvl (test code = Glucose Lvl) 88 70-99 [facility] HospitalDyckykaFYCOHHPVQUGY7063-79-91 02:01:00 Test Item Value Reference Range Interpretation Comments Creatinine Lvl (test code = Creatinine 0.76 0.50-1.40 Lvl) [facility]ptownNiclyhlCQSFSSVIAA1260-78-97 02:01:00 Test Item Value Reference Range Interpretation Comments Segs-Bands # (test code = Segs-Bands #) 5.4 1.5-8.1 [facility] UptownCetclxqETKMKPBBAU8920-28-77 02:01:00 Test Item Value Reference Range Interpretation Comments Basophils (test code = 1.0 See_Comment [Aut omated message] The Basophils) system which ge nerated this result tra nsmitted reference range : <=1.0. The reference r kat was not used to int erpret this result as normal/abnormal . [facility] UptownEozvuzlFNHHETOFTF3421-92-98 02:01:00 Test Item Value Reference Range Interpretation Comments Monocytes # (test code 0.7 See_Comment [Aut omated message] The = Monocytes #) system which generated this result tra nsmitted reference range : <=0.8. The reference r kat was not used to int erpret this result as normal/abnormal . [facility] UptownHwhswgrVGKMTRVYWY6236-79-66 02:01:00 Test Item Value Reference Range Interpretation Comments Lymphocytes (test code = Lymphocytes) 35.1 20.0-40.0 [facility] UptownJzajavyWTTXGTEDZA6250-14-49 02:01:00 Test Item Value Reference Range Interpretation Comments Lymphocytes # (test code = Lymphocytes 3.5 1.0-5.5 #) [facility]ptownSuysvobHCFUFQVEMM5638-58-18 02:01:00 Test Item Value Reference Range Interpretation Comments Monocytes (test code = Monocytes) 6.7 2.0-12.0 [facility] UptownGugvhvcUSHMHTUZEY3999-18-34 02:01:00 Test Item Value Reference Range Interpretation Comments Segs (test code = Segs) 54.8 45.0-75.0 [facility]ptownJyumddbBTIMCABFSC3234-48-90 02:01:00 Test Item Value Reference Range Interpretation Comments Eosinophils (test code = 2.4 See_Comment [A utomated message] The Eosinophils) system which ge nerated this result tra nsmitted reference range : <=4.0. The reference r kat was not used to int erpret this result as normal/abnormal . [facility]ptownEuhyznqNMSIPTJNLJ0524-25-96 02:01:00 Test Item Value Reference Range Interpretation Comments Basophils # (test code 0.1 See_Comment [Aut omated message] The = Basophils #) system which generated this result tra nsmitted reference range : <=0.2. The reference r kat was not used to int erpret this result as normal/abnormal . [facility] UptownUfkbwgvBHAAPEHMYV6273-93-31 02:01:00 Test Item Value Reference Range Interpretation Comments Microcyte (test code = 1+ *ABN*(09/17/15 Microcyte) 8:01 PM) [facility] UptownFllymhqORAOBCQTKF1779-26-99 02:01:00 Test Item Value Reference Range Interpretation Comments Eosinophils # (test code 0.2 See_Comment [A utomated message] The = Eosinophils #) system whic h generated this result tra nsmitted reference range : <=0.5. The reference r kat was not used to int erpret this result as normal/abnormal . [facility] UptownXcrxhfjJGYSYHNYBN7121-60-87 02:01:00 Test Item Value Reference Range Interpretation Comments MPV (test code = MPV) 10.0 7.4-10.4 [facility] UptownHqazwymYWADZLKMXR4849-64-20 02:01:00 Test Item Value Reference Range Interpretation Comments RDW (test code = RDW) 16.9 11.5-14.5 [facility] UptownZmklehvIEDEBEKLIS1228-25-54 02:01:00 Test Item Value Reference Range Interpretation Comments Platelet (test code = Platelet) 208 133-450 [facility] UptownMpmmrkrPRHBFJGATB4750-01-84 02:01:00 Test Item Value Reference Range Interpretation Comments MCV (test code = MCV) 77.9 80.0-98.0 [facility] UptownPqeunmdLNETZOOELD7731-63-24 02:01:00 Test Item Value Reference Range Interpretation Comments MCH (test code = MCH) 24.2 pg 27.0-31.0 [facility]ownGanwfqpFZGUYRHVUD6090-91-22 02:01:00 Test Item Value Reference Range Interpretation Comments MCHC (test code = MCHC) 31.1 32.0-36.0 [facility]ptownBokhzzfAKSKYKHBPV1943-76-28 02:01:00 Test Item Value Reference Range Interpretation Comments Hgb (test code = Hgb) 13.3 12.0-16.0 [facility]ptownYoawmtdQIIDTQAHAK5157-34-00 02:01:00 Test Item Value Reference Range Interpretation Comments Hct (test code = Hct) 42.6 36.0-48.0 [facility]ptownFfnheajPNUBECOQZY3151-53-75 02:01:00 Test Item Value Reference Range Interpretation Comments WBC (test code = WBC) 9.9 3.7-10.4 [facility]ptownHxgrwxjMRAYAPPKYN9623-01-64 02:01:00 Test Item Value Reference Range Interpretation Comments RBC (test code = RBC) 5.47 4.20-5.40 [facility]2016-01-20 02:01:00 Test Item Value Reference Range Interpretation Comments Lipase Lvl (test code = Lipase Lvl) 196 73-393 [facility]2016-01-20 02:01:00 Test Item Value Reference Range Interpretation Comments Amylase Lvl (test code = Amylase Lvl) 33 25-115 [facility]HssjzwfVYQHDRRXXKLI8534-44-34 02:01:00 Test Item Value Reference Range Interpretation Comments AGAP (test code = AGAP) 10.7 10.0-20.0 [facility] HospitalWqwbzatDQKTBUADHYED0676-36-01 02:01:00 Test Item Value Reference Range Interpretation Comments A/G Ratio (test code = A/G Ratio) 1.2 0.7-1.6 [facility] HospitalGlubxgjDIVBDSVPVYEM3282-26-02 02:01:00 Test Item Value Reference Range Interpretation Comments Globulin (test code = Globulin) 3.1 2.0-4.0 [facility] HospitalIkhrkntIBZEITVJTJGC5353-47-79 02:01:00 Test Item Value Reference Range Interpretation Comments B/C Ratio (test code = B/C Ratio) 13 6-25 [facility] HospitalGrxgivrYHQODXRVKOMY4960-76-82 02:01:00 Test Item Value Reference Range Interpretation Comments Total Protein (test code = Total 6.9 6.4-8.4 Protein) [facility] HospitalPspefxbFTQOYCLIBYKS0548-46-38 02:01:00 Test Item Value Reference Range Interpretation Comments Calcium Lvl (test code = Calcium Lvl) 9.0 8.5-10.5 [facility] HospitalHrtbfvtBIBCALINHLEH8950-64-51 02:01:00 Test Item Value Reference Range Interpretation Comments CO2 (test code = CO2) 26 24-32 [facility] HospitalPddutyhXUICNRWTYVZJ5696-70-04 02:01:00 Test Item Value Reference Range Interpretation Comments eGFR (test code = eGFR) 110 [facility] HospitalEpqizbsEWDVQAHRQJHZ5488-49-79 02:01:00 Test Item Value Reference Range Interpretation Comments Bili Total (test code = Bili Total) 0.3 0.2-1.3 [facility] HospitalKcprkwuSQHJGBBBFKCT3671-56-58 02:01:00 Test Item Value Reference Range Interpretation Comments Alk Phos (test code = Alk Phos) 84 39-136 [facility] HospitalHpdwdbbUHYXENWPKPTB1598-75-82 02:01:00 Test Item Value Reference Range Interpretation Comments AST (test code = AST) 17 See_Comment [Auto mated message] The system which ge nerated this result transmit arvind reference range : <=37. The reference range was not used to interpr et this result as mario l/abnormal. [facility] HospitalCpdhgleCLFCQHVBBQFS6730-47-13 02:01:00 Test Item Value Reference Range Interpretation Comments ALT (test code = ALT) 42 See_Comment [Auto mated message] The system which ge nerated this result transmit arvind reference range : <=65. The reference range was not used to interpr et this result as mario l/abnormal. [facility] HospitalHzegfsiIEICXWHJZDHO0595-25-20 02:01:00 Test Item Value Reference Range Interpretation Comments Albumin Lvl (test code = Albumin Lvl) 3.8 3.5-5.0 [facility] HospitalXrqlkhoEKIZYXACIEUL2319-90-33 02:01:00 Test Item Value Reference Range Interpretation Comments Sodium Lvl (test code = Sodium Lvl) 139 135-145 [facility] HospitalZbyxxyrFRWTYHLJISEK1712-30-48 02:01:00 Test Item Value Reference Range Interpretation Comments Chloride Lvl (test code = Chloride Lvl) 106 95-109 [facility] HospitalAkdtcbxLBEQCOJXXQCB4920-10-49 02:01:00 Test Item Value Reference Range Interpretation Comments Potassium Lvl (test code = Potassium 3.7 3.5-5.1 Lvl) [facility] HospitalXxdqxckNROTJWSQSUXS1483-32-96 02:01:00 Test Item Value Reference Range Interpretation Comments BUN (test code = BUN) 10 7-22 [facility] HospitalUeozbqfXPNYUDSOCGPR4924-69-78 02:01:00 Test Item Value Reference Range Interpretation Comments Glucose Lvl (test code = Glucose Lvl) 88 70-99 [facility] HospitalTkyxfvaHIWSTUIDBYYZ4020-50-07 02:01:00 Test Item Value Reference Range Interpretation Comments Creatinine Lvl (test code = Creatinine 0.76 0.50-1.40 Lvl) [facility]ownMjpfdfxABHMKTKZRF6107-31-92 02:01:00 Test Item Value Reference Range Interpretation Comments Segs-Bands # (test code = Segs-Bands #) 5.4 1.5-8.1 [facility]ptownGhokhgeTSDSCFYPLX8555-71-02 02:01:00 Test Item Value Reference Range Interpretation Comments Basophils (test code = 1.0 See_Comment [Aut omated message] The Basophils) system which ge nerated this result tra nsmitted reference range : <=1.0. The reference r kat was not used to int erpret this result as normal/abnormal . [facility]ptownIokgsdeJOSOFICZZB1719-65-22 02:01:00 Test Item Value Reference Range Interpretation Comments Monocytes # (test code 0.7 See_Comment [Aut omated message] The = Monocytes #) system which generated this result tra nsmitted reference range : <=0.8. The reference r kat was not used to int erpret this result as normal/abnormal . [facility]ptownMrrpsckAAHDHJWNRE0562-03-29 02:01:00 Test Item Value Reference Range Interpretation Comments Lymphocytes (test code = Lymphocytes) 35.1 20.0-40.0 [facility]ptownLdbagzqVUFXGZSHNP0599-69-07 02:01:00 Test Item Value Reference Range Interpretation Comments Lymphocytes # (test code = Lymphocytes 3.5 1.0-5.5 #) [facility]ptownKaiuvvcELWFASGBUH3625-41-80 02:01:00 Test Item Value Reference Range Interpretation Comments Monocytes (test code = Monocytes) 6.7 2.0-12.0 [facility]ptownAthykkcJKSODLEXQJ6975-23-11 02:01:00 Test Item Value Reference Range Interpretation Comments Segs (test code = Segs) 54.8 45.0-75.0 [facility] UptownYdexaptWXDVYETJSV2523-49-40 02:01:00 Test Item Value Reference Range Interpretation Comments Eosinophils (test code = 2.4 See_Comment [A utomated message] The Eosinophils) system which ge nerated this result tra nsmitted reference range : <=4.0. The reference r kat was not used to int erpret this result as normal/abnormal . [facility]ptownQibwbanCNEVZWYYLY8001-07-60 02:01:00 Test Item Value Reference Range Interpretation Comments Basophils # (test code 0.1 See_Comment [Aut omated message] The = Basophils #) system which generated this result tra nsmitted reference range : <=0.2. The reference r kat was not used to int erpret this result as normal/abnormal . [facility]ownWnnrwzlYCUBJIVFOC9749-08-10 02:01:00 Test Item Value Reference Range Interpretation Comments Microcyte (test code = 1+ *ABN*(09/17/15 Microcyte) 8:01 PM) [facility]ptownNefhshzBTGSRUMACI4285-86-33 02:01:00 Test Item Value Reference Range Interpretation Comments Eosinophils # (test code 0.2 See_Comment [A utomated message] The = Eosinophils #) system whic h generated this result tra nsmitted reference range : <=0.5. The reference r kat was not used to int erpret this result as normal/abnormal . [facility]ptownFxmqhmwAVUVCDEACU3783-19-47 02:01:00 Test Item Value Reference Range Interpretation Comments MPV (test code = MPV) 10.0 7.4-10.4 [facility]ptownSpgknbfAAZCFKXOTS9415-18-87 02:01:00 Test Item Value Reference Range Interpretation Comments RDW (test code = RDW) 16.9 11.5-14.5 [facility]ptownNjuoopuKJJTVJJNEA4810-32-34 02:01:00 Test Item Value Reference Range Interpretation Comments Platelet (test code = Platelet) 208 133-450 [facility]ptownUqpcpjgGVTVFHTITG5288-76-76 02:01:00 Test Item Value Reference Range Interpretation Comments MCV (test code = MCV) 77.9 80.0-98.0 [facility]ptownYcmpjglOJPQSGYDIL3867-62-35 02:01:00 Test Item Value Reference Range Interpretation Comments MCH (test code = MCH) 24.2 pg 27.0-31.0 [facility] UptownBdzhxmnAWVHZNNIUT1370-31-08 02:01:00 Test Item Value Reference Range Interpretation Comments MCHC (test code = MCHC) 31.1 32.0-36.0 [facility]ptownPdzyqeaTZASYVBIVE1393-43-98 02:01:00 Test Item Value Reference Range Interpretation Comments Hgb (test code = Hgb) 13.3 12.0-16.0 [facility]ptownHwhtqraZWRVARDKBQ6099-84-81 02:01:00 Test Item Value Reference Range Interpretation Comments Hct (test code = Hct) 42.6 36.0-48.0 [facility]ptownVzzlgzcYGMRFAXJXB2723-65-79 02:01:00 Test Item Value Reference Range Interpretation Comments WBC (test code = WBC) 9.9 3.7-10.4 [facility]ptownMwaptqvVCXTQWFYSM9530-64-96 02:01:00 Test Item Value Reference Range Interpretation Comments RBC (test code = RBC) 5.47 4.20-5.40 [facility]2016-01-20 02:01:00 Test Item Value Reference Range Interpretation Comments Lipase Lvl (test code = Lipase Lvl) 196 73-393 [facility]2016-01-20 02:01:00 Test Item Value Reference Range Interpretation Comments Amylase Lvl (test code = Amylase Lvl) 33 25-115 [facility] HospitalVmudrpeTLLRZLMWCUZY3399-67-44 02:01:00 Test Item Value Reference Range Interpretation Comments AGAP (test code = AGAP) 10.7 10.0-20.0 [facility] HospitalJlsjbuxRVTKUSKFZWQO2012-19-64 02:01:00 Test Item Value Reference Range Interpretation Comments A/G Ratio (test code = A/G Ratio) 1.2 0.7-1.6 [facility] HospitalMxdspyoXMCNDSCMHESI3949-93-25 02:01:00 Test Item Value Reference Range Interpretation Comments Globulin (test code = Globulin) 3.1 2.0-4.0 [facility] HospitalOnorvlaUTBYXRHHBNEJ0352-25-04 02:01:00 Test Item Value Reference Range Interpretation Comments B/C Ratio (test code = B/C Ratio) 13 6-25 [facility] HospitalKcflygaELASGOPXRYJL1310-96-73 02:01:00 Test Item Value Reference Range Interpretation Comments Total Protein (test code = Total 6.9 6.4-8.4 Protein) [facility] HospitalFlnbietNBVWUKQGRDYH4524-87-06 02:01:00 Test Item Value Reference Range Interpretation Comments Calcium Lvl (test code = Calcium Lvl) 9.0 8.5-10.5 [facility] HospitalWvaibthJGTUUQPGIXLW7260-14-02 02:01:00 Test Item Value Reference Range Interpretation Comments CO2 (test code = CO2) 26 24-32 [facility] HospitalQwjhgrbTSVYWGZSSMQK3336-16-33 02:01:00 Test Item Value Reference Range Interpretation Comments eGFR (test code = eGFR) 110 [facility] HospitalCymzifbAJXMVMEZOKJU7386-00-72 02:01:00 Test Item Value Reference Range Interpretation Comments Bili Total (test code = Bili Total) 0.3 0.2-1.3 [facility] HospitalScisqvsDFROBODFQINI6888-86-61 02:01:00 Test Item Value Reference Range Interpretation Comments Alk Phos (test code = Alk Phos) 84 39-136 [facility] HospitalLvthfdwLVZIFDSDLBYB8629-45-87 02:01:00 Test Item Value Reference Range Interpretation Comments AST (test code = AST) 17 See_Comment [Auto mated message] The system which ge nerated this result transmit arvind reference range : <=37. The reference range was not used to interpr et this result as mario l/abnormal. [facility] HospitalJtcyeqxHCLIWTNKTBAW5705-90-34 02:01:00 Test Item Value Reference Range Interpretation Comments ALT (test code = ALT) 42 See_Comment [Auto mated message] The system which ge nerated this result transmit arvind reference range : <=65. The reference range was not used to interpr et this result as mario l/abnormal. [facility] HospitalKdijjcqVXMSIPWBMUXS1530-78-79 02:01:00 Test Item Value Reference Range Interpretation Comments Albumin Lvl (test code = Albumin Lvl) 3.8 3.5-5.0 [facility] HospitalUfpmpfxUAZJODWPYRBH4343-73-27 02:01:00 Test Item Value Reference Range Interpretation Comments Sodium Lvl (test code = Sodium Lvl) 139 135-145 [facility] HospitalLgwoxpxZEKRNZHIQUWD8340-95-41 02:01:00 Test Item Value Reference Range Interpretation Comments Chloride Lvl (test code = Chloride Lvl) 106 95-109 [facility] HospitalSpnbjuzOVCTZHGPRGDC5543-35-54 02:01:00 Test Item Value Reference Range Interpretation Comments Potassium Lvl (test code = Potassium 3.7 3.5-5.1 Lvl) [facility] HospitalVeqdtalAYGSIWDGANMK0309-84-17 02:01:00 Test Item Value Reference Range Interpretation Comments BUN (test code = BUN) 10 7-22 [facility] HospitalJrggntuDSTAIGIWCSDE6939-14-52 02:01:00 Test Item Value Reference Range Interpretation Comments Glucose Lvl (test code = Glucose Lvl) 88 70-99 [facility] HospitalQdcvspsECDFESJFOPJB6825-79-76 02:01:00 Test Item Value Reference Range Interpretation Comments Creatinine Lvl (test code = Creatinine 0.76 0.50-1.40 Lvl) [facility]ownYiyzsbmJOWYYMPPSO4555-13-90 02:01:00 Test Item Value Reference Range Interpretation Comments Segs-Bands # (test code = Segs-Bands #) 5.4 1.5-8.1 [facility]ptownVnysddhLNRIUZCYYF8293-47-66 02:01:00 Test Item Value Reference Range Interpretation Comments Basophils (test code = 1.0 See_Comment [Aut omated message] The Basophils) system which ge nerated this result tra nsmitted reference range : <=1.0. The reference r kat was not used to int erpret this result as normal/abnormal . [facility]ownIyjqnxtQPXHOESNQM6706-14-16 02:01:00 Test Item Value Reference Range Interpretation Comments Monocytes # (test code 0.7 See_Comment [Aut omated message] The = Monocytes #) system which generated this result tra nsmitted reference range : <=0.8. The reference r kat was not used to int erpret this result as normal/abnormal . [facility]ownStgyatpGUOSPVHKAW3041-61-79 02:01:00 Test Item Value Reference Range Interpretation Comments Lymphocytes (test code = Lymphocytes) 35.1 20.0-40.0 [facility]ptownCenohwgODWXQFKOZP5392-26-95 02:01:00 Test Item Value Reference Range Interpretation Comments Lymphocytes # (test code = Lymphocytes 3.5 1.0-5.5 #) [facility]ptownKcjulonPYFBVMMHAY3687-35-39 02:01:00 Test Item Value Reference Range Interpretation Comments Monocytes (test code = Monocytes) 6.7 2.0-12.0 [facility] UptownGhotrseZRCAENZZEM8639-72-53 02:01:00 Test Item Value Reference Range Interpretation Comments Segs (test code = Segs) 54.8 45.0-75.0 [facility]ptownJkggihfHXPBAGCUOM8866-27-97 02:01:00 Test Item Value Reference Range Interpretation Comments Eosinophils (test code = 2.4 See_Comment [A utomated message] The Eosinophils) system which ge nerated this result tra nsmitted reference range : <=4.0. The reference r kat was not used to int erpret this result as normal/abnormal . [facility]ptownTzslzmbORKUKVEHLU7829-07-64 02:01:00 Test Item Value Reference Range Interpretation Comments Basophils # (test code 0.1 See_Comment [Aut omated message] The = Basophils #) system which generated this result tra nsmitted reference range : <=0.2. The reference r kat was not used to int erpret this result as normal/abnormal . [facility]ptownYkyydyjSIYMELGVAG6409-12-80 02:01:00 Test Item Value Reference Range Interpretation Comments Microcyte (test code = 1+ *ABN*(09/17/15 Microcyte) 8:01 PM) [facility]ptownDrgxdtyOVUWXFQOKQ7602-17-25 02:01:00 Test Item Value Reference Range Interpretation Comments Eosinophils # (test code 0.2 See_Comment [A utomated message] The = Eosinophils #) system whic h generated this result tra nsmitted reference range : <=0.5. The reference r kat was not used to int erpret this result as normal/abnormal . [facility]ptownNilurufRFBFDRXIWU2189-18-44 02:01:00 Test Item Value Reference Range Interpretation Comments MPV (test code = MPV) 10.0 7.4-10.4 [facility]ptownWnmyegrFGWUULCYPU6694-74-63 02:01:00 Test Item Value Reference Range Interpretation Comments RDW (test code = RDW) 16.9 11.5-14.5 [facility]ptownOxxwlhcINDVQBBDES4944-10-70 02:01:00 Test Item Value Reference Range Interpretation Comments Platelet (test code = Platelet) 208 133-450 [facility]ptownCgnlgudSCCUYSRMRR9695-58-02 02:01:00 Test Item Value Reference Range Interpretation Comments MCV (test code = MCV) 77.9 80.0-98.0 [facility]ptownDkbvhzdXYYCDRTRPL0832-88-84 02:01:00 Test Item Value Reference Range Interpretation Comments MCH (test code = MCH) 24.2 pg 27.0-31.0 [facility]ptownEnkzfgzJBNUNSUYJR7942-16-71 02:01:00 Test Item Value Reference Range Interpretation Comments MCHC (test code = MCHC) 31.1 32.0-36.0 [facility]ptownEbeaxtiHXVLKYVTLZ9723-81-81 02:01:00 Test Item Value Reference Range Interpretation Comments Hgb (test code = Hgb) 13.3 12.0-16.0 [facility]ptownZzqkymcPUFOJEBGBP7713-92-35 02:01:00 Test Item Value Reference Range Interpretation Comments Hct (test code = Hct) 42.6 36.0-48.0 [facility]ptownPcicommEXXYEXKHHA5859-95-58 02:01:00 Test Item Value Reference Range Interpretation Comments WBC (test code = WBC) 9.9 3.7-10.4 [facility]ptownQllwoxbRQVFMHPOPR5657-65-67 02:01:00 Test Item Value Reference Range Interpretation Comments RBC (test code = RBC) 5.47 4.20-5.40 [facility]2016-01-20 02:01:00 Test Item Value Reference Range Interpretation Comments Lipase Lvl (test code = Lipase Lvl) 196 73-393 [facility]2016-01-20 02:01:00 Test Item Value Reference Range Interpretation Comments Amylase Lvl (test code = Amylase Lvl) 33 25-115 [facility] HospitalFnkacrjHAETZPZJOULT5291-52-87 02:01:00 Test Item Value Reference Range Interpretation Comments AGAP (test code = AGAP) 10.7 10.0-20.0 [facility] HospitalOtjaecaSQTIQKORAVAD7524-90-39 02:01:00 Test Item Value Reference Range Interpretation Comments A/G Ratio (test code = A/G Ratio) 1.2 0.7-1.6 [facility] HospitalEthdpomJVSIBLMUREPR3498-50-63 02:01:00 Test Item Value Reference Range Interpretation Comments Globulin (test code = Globulin) 3.1 2.0-4.0 [facility] HospitalXmgkiwyHFBVAWWCYVNT3980-85-34 02:01:00 Test Item Value Reference Range Interpretation Comments B/C Ratio (test code = B/C Ratio) 13 6-25 [facility] HospitalFmwvoymTSDJWYFPWJZX7690-52-29 02:01:00 Test Item Value Reference Range Interpretation Comments Total Protein (test code = Total 6.9 6.4-8.4 Protein) [facility] HospitalMkwbhasVHCENDRQSZXF6917-26-49 02:01:00 Test Item Value Reference Range Interpretation Comments Calcium Lvl (test code = Calcium Lvl) 9.0 8.5-10.5 [facility] HospitalLljvcsfUFYVWIVWTKYO2526-83-48 02:01:00 Test Item Value Reference Range Interpretation Comments CO2 (test code = CO2) 26 24-32 [facility] HospitalIgevamcLMGKJRPWPPFK5084-23-46 02:01:00 Test Item Value Reference Range Interpretation Comments eGFR (test code = eGFR) 110 [facility] HospitalUtgsuwrDQDAWYMLTJLM2396-97-80 02:01:00 Test Item Value Reference Range Interpretation Comments Bili Total (test code = Bili Total) 0.3 0.2-1.3 [facility] HospitalJlhnrmoUQTIRCYKYFLB0587-33-55 02:01:00 Test Item Value Reference Range Interpretation Comments Alk Phos (test code = Alk Phos) 84 39-136 [facility] HospitalKnhsueiWMCLJCQZVAPA2427-45-09 02:01:00 Test Item Value Reference Range Interpretation Comments AST (test code = AST) 17 See_Comment [Auto mated message] The system which ge nerated this result transmit arvind reference range : <=37. The reference range was not used to interpr et this result as mario l/abnormal. [facility] HospitalBbmcmnrPTADMVTDCLRV7357-64-87 02:01:00 Test Item Value Reference Range Interpretation Comments ALT (test code = ALT) 42 See_Comment [Auto mated message] The system which ge nerated this result transmit arvind reference range : <=65. The reference range was not used to interpr et this result as mario l/abnormal. [facility] HospitalVrpeghzYCTQTFXZYABU2558-86-06 02:01:00 Test Item Value Reference Range Interpretation Comments Albumin Lvl (test code = Albumin Lvl) 3.8 3.5-5.0 [facility] HospitalRvficmeFLDXJOTNIGUL9216-09-30 02:01:00 Test Item Value Reference Range Interpretation Comments Sodium Lvl (test code = Sodium Lvl) 139 135-145 [facility] HospitalKdkatfeCLQPEDQLHWKD5488-01-76 02:01:00 Test Item Value Reference Range Interpretation Comments Chloride Lvl (test code = Chloride Lvl) 106 95-109 [facility] HospitalMldhmriGHPVCLNXLTKD2355-34-79 02:01:00 Test Item Value Reference Range Interpretation Comments Potassium Lvl (test code = Potassium 3.7 3.5-5.1 Lvl) [facility] HospitalXkespfpKAFEOHWSGACW3264-06-07 02:01:00 Test Item Value Reference Range Interpretation Comments BUN (test code = BUN) 10 7-22 [facility] HospitalYliomwlEJZNPRPJTKRV3856-36-92 02:01:00 Test Item Value Reference Range Interpretation Comments Glucose Lvl (test code = Glucose Lvl) 88 70-99 [facility] HospitalKlnwxrvVGYIQFFKRIYC4368-90-90 02:01:00 Test Item Value Reference Range Interpretation Comments Creatinine Lvl (test code = Creatinine 0.76 0.50-1.40 Lvl) [facility]ownPjfariqUTQBSPPRJM1732-31-85 02:01:00 Test Item Value Reference Range Interpretation Comments Segs-Bands # (test code = Segs-Bands #) 5.4 1.5-8.1 [facility]ptownYwzeywsLVWYXTMXYJ7180-15-41 02:01:00 Test Item Value Reference Range Interpretation Comments Basophils (test code = 1.0 See_Comment [Aut omated message] The Basophils) system which ge nerated this result tra nsmitted reference range : <=1.0. The reference r kat was not used to int erpret this result as normal/abnormal . [facility]ptownJuplzgcXMSQSGEJBS7165-20-85 02:01:00 Test Item Value Reference Range Interpretation Comments Monocytes # (test code 0.7 See_Comment [Aut omated message] The = Monocytes #) system which generated this result tra nsmitted reference range : <=0.8. The reference r kat was not used to int erpret this result as normal/abnormal . [facility] UptownNewfiixCVDAQYAOZV1951-57-97 02:01:00 Test Item Value Reference Range Interpretation Comments Lymphocytes (test code = Lymphocytes) 35.1 20.0-40.0 [facility]ptownOrvmftvZLGMAXHIZU9767-17-95 02:01:00 Test Item Value Reference Range Interpretation Comments Lymphocytes # (test code = Lymphocytes 3.5 1.0-5.5 #) [facility]ptownDqlmvhdFIDQJFOMZS5484-33-17 02:01:00 Test Item Value Reference Range Interpretation Comments Monocytes (test code = Monocytes) 6.7 2.0-12.0 [facility]ptownQhrhbdbHHSFCVXDFP5940-07-52 02:01:00 Test Item Value Reference Range Interpretation Comments Segs (test code = Segs) 54.8 45.0-75.0 [facility]ptownQeekinhWBKMHUUADZ7491-89-86 02:01:00 Test Item Value Reference Range Interpretation Comments Eosinophils (test code = 2.4 See_Comment [A utomated message] The Eosinophils) system which ge nerated this result tra nsmitted reference range : <=4.0. The reference r kat was not used to int erpret this result as normal/abnormal . [facility] UptownBfgwdhdGLXRMHEREV7593-78-92 02:01:00 Test Item Value Reference Range Interpretation Comments Basophils # (test code 0.1 See_Comment [Aut omated message] The = Basophils #) system which generated this result tra nsmitted reference range : <=0.2. The reference r kat was not used to int erpret this result as normal/abnormal . [facility] UptownAzbheqsVGMFSUVJMX3707-78-87 02:01:00 Test Item Value Reference Range Interpretation Comments Microcyte (test code = 1+ *ABN*(09/17/15 Microcyte) 8:01 PM) [facility] UptownDoranbcNQOTPDUFDY8021-26-12 02:01:00 Test Item Value Reference Range Interpretation Comments Eosinophils # (test code 0.2 See_Comment [A utomated message] The = Eosinophils #) system whic h generated this result tra nsmitted reference range : <=0.5. The reference r kat was not used to int erpret this result as normal/abnormal . [facility] UptownJllhwwtZWRQFMLJZT5347-53-72 02:01:00 Test Item Value Reference Range Interpretation Comments MPV (test code = MPV) 10.0 7.4-10.4 [facility] UptownIrbuidtDEBKGDLQQR6866-07-03 02:01:00 Test Item Value Reference Range Interpretation Comments RDW (test code = RDW) 16.9 11.5-14.5 [facility] UptownMpoiplwJRFRIDIDPS9496-29-54 02:01:00 Test Item Value Reference Range Interpretation Comments Platelet (test code = Platelet) 208 133-450 [facility] UptownTwzotrjHBSYEXWAAF2746-74-53 02:01:00 Test Item Value Reference Range Interpretation Comments MCV (test code = MCV) 77.9 80.0-98.0 [facility] UptownXzmrmuoWUWIXSKEYA4227-60-72 02:01:00 Test Item Value Reference Range Interpretation Comments MCH (test code = MCH) 24.2 pg 27.0-31.0 [facility] UptownBeisysyBFMNJIHMZA2616-91-05 02:01:00 Test Item Value Reference Range Interpretation Comments MCHC (test code = MCHC) 31.1 32.0-36.0 [facility] UptownXqixmdnUYHUWAXGNI7683-40-54 02:01:00 Test Item Value Reference Range Interpretation Comments Hgb (test code = Hgb) 13.3 12.0-16.0 [facility] UptownSritzoyGCVLWATHCC7274-18-02 02:01:00 Test Item Value Reference Range Interpretation Comments Hct (test code = Hct) 42.6 36.0-48.0 [facility] UptownDgmgwifELHKZGAMWA5473-95-94 02:01:00 Test Item Value Reference Range Interpretation Comments WBC (test code = WBC) 9.9 3.7-10.4 [facility] UptownOobovpfPUBGQZGRXR4923-30-57 02:01:00 Test Item Value Reference Range Interpretation Comments RBC (test code = RBC) 5.47 4.20-5.40 [facility]2016-01-20 02:01:00 Test Item Value Reference Range Interpretation Comments Lipase Lvl (test code = Lipase Lvl) 196 73-393 [facility]2016-01-20 02:01:00 Test Item Value Reference Range Interpretation Comments Amylase Lvl (test code = Amylase Lvl) 33 25-115 [facility]XfqewtxHIFFEMVCBMWX6034-59-90 02:01:00 Test Item Value Reference Range Interpretation Comments AGAP (test code = AGAP) 10.7 10.0-20.0 [facility] HospitalRbxrltgXUZCXTNYBJEL1645-28-60 02:01:00 Test Item Value Reference Range Interpretation Comments A/G Ratio (test code = A/G Ratio) 1.2 0.7-1.6 [facility] HospitalSxsjljpECKCPGQNPFHG9446-05-39 02:01:00 Test Item Value Reference Range Interpretation Comments Globulin (test code = Globulin) 3.1 2.0-4.0 [facility] HospitalTaxbhiuIZGYHWHPCERU6221-35-06 02:01:00 Test Item Value Reference Range Interpretation Comments B/C Ratio (test code = B/C Ratio) 13 6-25 [facility] HospitalHdmgmrlJLTYABTWSUCP8532-73-78 02:01:00 Test Item Value Reference Range Interpretation Comments Total Protein (test code = Total 6.9 6.4-8.4 Protein) [facility] HospitalOkctoeiKGBFHKVJNWQV2344-38-66 02:01:00 Test Item Value Reference Range Interpretation Comments Calcium Lvl (test code = Calcium Lvl) 9.0 8.5-10.5 [facility] HospitalSxbmkppNOUKIATKTQDC6040-65-42 02:01:00 Test Item Value Reference Range Interpretation Comments CO2 (test code = CO2) 26 24-32 [facility] HospitalFjkhapcPHGCRRGAQQEH9685-95-97 02:01:00 Test Item Value Reference Range Interpretation Comments eGFR (test code = eGFR) 110 [facility] HospitalUsegujaOBRNDSZFYMKB4715-51-09 02:01:00 Test Item Value Reference Range Interpretation Comments Bili Total (test code = Bili Total) 0.3 0.2-1.3 [facility] HospitalTmatshpDMVPSOZZIEKV9106-43-00 02:01:00 Test Item Value Reference Range Interpretation Comments Alk Phos (test code = Alk Phos) 84 39-136 [facility] HospitalVlhmsajTUABJFVSIZUX6617-84-28 02:01:00 Test Item Value Reference Range Interpretation Comments AST (test code = AST) 17 See_Comment [Auto mated message] The system which ge nerated this result transmit arvind reference range : <=37. The reference range was not used to interpr et this result as mario l/abnormal. [facility] HospitalXknviqnWOSNAOUPXPBY9756-92-62 02:01:00 Test Item Value Reference Range Interpretation Comments ALT (test code = ALT) 42 See_Comment [Auto mated message] The system which ge nerated this result transmit arvind reference range : <=65. The reference range was not used to interpr et this result as mario l/abnormal. [facility] HospitalEmeuyzcRWYBNMLPJWTC5640-78-47 02:01:00 Test Item Value Reference Range Interpretation Comments Albumin Lvl (test code = Albumin Lvl) 3.8 3.5-5.0 [facility] HospitalWcicsjbMAQMPDJLCDSI6568-08-53 02:01:00 Test Item Value Reference Range Interpretation Comments Sodium Lvl (test code = Sodium Lvl) 139 135-145 [facility] HospitalZwddaksMECCVJLJCWOL1140-02-84 02:01:00 Test Item Value Reference Range Interpretation Comments Chloride Lvl (test code = Chloride Lvl) 106 95-109 [facility] HospitalJtreokgPPIKOFEKCWDE1609-48-99 02:01:00 Test Item Value Reference Range Interpretation Comments Potassium Lvl (test code = Potassium 3.7 3.5-5.1 Lvl) [facility] HospitalMxantimLPENYAKHRTDN8942-05-34 02:01:00 Test Item Value Reference Range Interpretation Comments BUN (test code = BUN) 10 7-22 [facility] HospitalQjlxqkvXJXJUDRZEDCF1832-96-65 02:01:00 Test Item Value Reference Range Interpretation Comments Glucose Lvl (test code = Glucose Lvl) 88 70-99 [facility] HospitalXdnoozcUKZTQNRFOGJY1314-65-07 02:01:00 Test Item Value Reference Range Interpretation Comments Creatinine Lvl (test code = Creatinine 0.76 0.50-1.40 Lvl) [facility] UptownVjdopaiXCTWHCVYXS4241-48-30 02:01:00 Test Item Value Reference Range Interpretation Comments Segs-Bands # (test code = Segs-Bands #) 5.4 1.5-8.1 [facility] UptownMmdimquWATCPFWHFZ7384-18-01 02:01:00 Test Item Value Reference Range Interpretation Comments Basophils (test code = 1.0 See_Comment [Aut omated message] The Basophils) system which ge nerated this result tra nsmitted reference range : <=1.0. The reference r kat was not used to int erpret this result as normal/abnormal . [facility] UptownSzhvjzdSEWDHRDIAI0889-32-27 02:01:00 Test Item Value Reference Range Interpretation Comments Monocytes # (test code 0.7 See_Comment [Aut omated message] The = Monocytes #) system which generated this result tra nsmitted reference range : <=0.8. The reference r kat was not used to int erpret this result as normal/abnormal . [facility] UptownRjalfijWGQKSBGKNQ5561-44-05 02:01:00 Test Item Value Reference Range Interpretation Comments Lymphocytes (test code = Lymphocytes) 35.1 20.0-40.0 [facility] UptownFgbaafmRZMIOSSPAG3589-05-88 02:01:00 Test Item Value Reference Range Interpretation Comments Lymphocytes # (test code = Lymphocytes 3.5 1.0-5.5 #) [facility] UptownLfyjkagDGZHZVIINK7180-59-28 02:01:00 Test Item Value Reference Range Interpretation Comments Monocytes (test code = Monocytes) 6.7 2.0-12.0 [facility] UptownEdyjhaaKETDTNRSRF1010-65-15 02:01:00 Test Item Value Reference Range Interpretation Comments Segs (test code = Segs) 54.8 45.0-75.0 [facility] UptownDdihgbkPIVFJZZZZY7150-92-25 02:01:00 Test Item Value Reference Range Interpretation Comments Eosinophils (test code = 2.4 See_Comment [A utomated message] The Eosinophils) system which ge nerated this result tra nsmitted reference range : <=4.0. The reference r kat was not used to int erpret this result as normal/abnormal . [facility] UptownUdlfnqoCIDRPJNVEM4960-48-56 02:01:00 Test Item Value Reference Range Interpretation Comments Basophils # (test code 0.1 See_Comment [Aut omated message] The = Basophils #) system which generated this result tra nsmitted reference range : <=0.2. The reference r kat was not used to int erpret this result as normal/abnormal . [facility] UptownDeqemcrIFPNAUHFPQ4334-62-88 02:01:00 Test Item Value Reference Range Interpretation Comments Microcyte (test code = 1+ *ABN*(09/17/15 Microcyte) 8:01 PM) [facility] UptownGkgpcsqHVSCRUZOUY5024-79-97 02:01:00 Test Item Value Reference Range Interpretation Comments Eosinophils # (test code 0.2 See_Comment [A utomated message] The = Eosinophils #) system whic h generated this result tra nsmitted reference range : <=0.5. The reference r kat was not used to int erpret this result as normal/abnormal . [facility] UptownWvvxzojHXQHKRJVJE1125-66-92 02:01:00 Test Item Value Reference Range Interpretation Comments MPV (test code = MPV) 10.0 7.4-10.4 [facility] UptownAojkmclCOVGVMAYMN4418-63-53 02:01:00 Test Item Value Reference Range Interpretation Comments RDW (test code = RDW) 16.9 11.5-14.5 [facility] UptownAkgetbiZOPICTAJHN5525-84-05 02:01:00 Test Item Value Reference Range Interpretation Comments Platelet (test code = Platelet) 208 133-450 [facility] UptownLaicfgoAWUCAWLFDN2287-88-69 02:01:00 Test Item Value Reference Range Interpretation Comments MCV (test code = MCV) 77.9 80.0-98.0 [facility] UptownWhyewxbYQMFPKLZIU4238-20-93 02:01:00 Test Item Value Reference Range Interpretation Comments MCH (test code = MCH) 24.2 pg 27.0-31.0 [facility] UptownKdpwazcILRDIOYRXK5274-62-64 02:01:00 Test Item Value Reference Range Interpretation Comments MCHC (test code = MCHC) 31.1 32.0-36.0 [facility] UptownKuqygfjKTBTXPNEEN7498-20-84 02:01:00 Test Item Value Reference Range Interpretation Comments Hgb (test code = Hgb) 13.3 12.0-16.0 [facility] UptownNsgpchxXSKJTGWFPQ7738-14-44 02:01:00 Test Item Value Reference Range Interpretation Comments Hct (test code = Hct) 42.6 36.0-48.0 [facility] UptownSyfmfruUSHILHEWQX5814-58-72 02:01:00 Test Item Value Reference Range Interpretation Comments WBC (test code = WBC) 9.9 3.7-10.4 [facility] UptownFilzfdvFXRZTIAYTM3119-16-55 02:01:00 Test Item Value Reference Range Interpretation Comments RBC (test code = RBC) 5.47 4.20-5.40 [facility]2016-01-20 02:01:00 Test Item Value Reference Range Interpretation Comments Lipase Lvl (test code = Lipase Lvl) 196 73-393 [facility]2016-01-20 02:01:00 Test Item Value Reference Range Interpretation Comments Amylase Lvl (test code = Amylase Lvl) 33 25-115 [facility] HospitalCwbpccgGKBXDWDRRSRD5886-21-25 02:01:00 Test Item Value Reference Range Interpretation Comments AGAP (test code = AGAP) 10.7 10.0-20.0 [facility] HospitalHvmvsxfKXFTLUEFNTFU1801-23-07 02:01:00 Test Item Value Reference Range Interpretation Comments A/G Ratio (test code = A/G Ratio) 1.2 0.7-1.6 [facility] HospitalZhtcewwNONQNYIBUMXV4868-15-23 02:01:00 Test Item Value Reference Range Interpretation Comments Globulin (test code = Globulin) 3.1 2.0-4.0 [facility] HospitalSsrwefxJWKUBQPLKBBF7798-08-27 02:01:00 Test Item Value Reference Range Interpretation Comments B/C Ratio (test code = B/C Ratio) 13 6-25 [facility] HospitalUpkynncJLKRWRYVTHZY1527-65-14 02:01:00 Test Item Value Reference Range Interpretation Comments Total Protein (test code = Total 6.9 6.4-8.4 Protein) [facility] HospitalVszenvwNFHFTMIVNUVT1848-76-19 02:01:00 Test Item Value Reference Range Interpretation Comments Calcium Lvl (test code = Calcium Lvl) 9.0 8.5-10.5 [facility] HospitalJqbszpoMNHVLCHGENCA6165-92-62 02:01:00 Test Item Value Reference Range Interpretation Comments CO2 (test code = CO2) 26 24-32 [facility] HospitalAkxncdxXXEDDUXQHNNX9897-90-76 02:01:00 Test Item Value Reference Range Interpretation Comments eGFR (test code = eGFR) 110 [facility] HospitalEobmcgxTOBNIKPJHCHL7771-25-97 02:01:00 Test Item Value Reference Range Interpretation Comments Bili Total (test code = Bili Total) 0.3 0.2-1.3 [facility] HospitalUaztbpcZJSNDFJTGZGD7490-85-75 02:01:00 Test Item Value Reference Range Interpretation Comments Alk Phos (test code = Alk Phos) 84 39-136 [facility] HospitalBlvgngrHFHMMZSRUNHI6771-37-11 02:01:00 Test Item Value Reference Range Interpretation Comments AST (test code = AST) 17 See_Comment [Auto mated message] The system which ge nerated this result transmit arvind reference range : <=37. The reference range was not used to interpr et this result as mario l/abnormal. [facility] HospitalImvlmtjPSMVTIFVLZAQ7048-20-58 02:01:00 Test Item Value Reference Range Interpretation Comments ALT (test code = ALT) 42 See_Comment [Auto mated message] The system which ge nerated this result transmit arvind reference range : <=65. The reference range was not used to interpr et this result as mario l/abnormal. [facility] HospitalQzdpqkxOSPIKAVXVLHN9076-86-47 02:01:00 Test Item Value Reference Range Interpretation Comments Albumin Lvl (test code = Albumin Lvl) 3.8 3.5-5.0 [facility] HospitalFxmsyfkWMEQXAYDWPGE0886-44-75 02:01:00 Test Item Value Reference Range Interpretation Comments Sodium Lvl (test code = Sodium Lvl) 139 135-145 [facility] HospitalMiluicwBSESVRIHSQBE5798-05-41 02:01:00 Test Item Value Reference Range Interpretation Comments Chloride Lvl (test code = Chloride Lvl) 106 95-109 [facility] HospitalFfiwaguJHTERYVAJTMZ3076-64-67 02:01:00 Test Item Value Reference Range Interpretation Comments Potassium Lvl (test code = Potassium 3.7 3.5-5.1 Lvl) [facility] HospitalPwuxxglBIGNPOAHUMCE1129-87-56 02:01:00 Test Item Value Reference Range Interpretation Comments BUN (test code = BUN) 10 7-22 [facility] HospitalWtskqwtPSDMEPRTYTSV9813-14-93 02:01:00 Test Item Value Reference Range Interpretation Comments Glucose Lvl (test code = Glucose Lvl) 88 70-99 [facility] HospitalBdcgcuwRVDHQBLKHDDW0437-95-41 02:01:00 Test Item Value Reference Range Interpretation Comments Creatinine Lvl (test code = Creatinine 0.76 0.50-1.40 Lvl) [facility] UptownKktbdgmUTSGPVZHWT3234-44-00 02:01:00 Test Item Value Reference Range Interpretation Comments Segs-Bands # (test code = Segs-Bands #) 5.4 1.5-8.1 [facility] UptownDxzoielXISLWTIZLY5442-58-45 02:01:00 Test Item Value Reference Range Interpretation Comments Basophils (test code = 1.0 See_Comment [Aut omated message] The Basophils) system which ge nerated this result tra nsmitted reference range : <=1.0. The reference r kat was not used to int erpret this result as normal/abnormal . [facility] UptownTadnfeaNXMQFZUSLZ4805-07-25 02:01:00 Test Item Value Reference Range Interpretation Comments Monocytes # (test code 0.7 See_Comment [Aut omated message] The = Monocytes #) system which generated this result tra nsmitted reference range : <=0.8. The reference r kat was not used to int erpret this result as normal/abnormal . [facility] UptownLjvoouwPTRWZOCEXV8380-46-07 02:01:00 Test Item Value Reference Range Interpretation Comments Lymphocytes (test code = Lymphocytes) 35.1 20.0-40.0 [facility] UptownVjlzpubKIIXDWZRML8583-08-10 02:01:00 Test Item Value Reference Range Interpretation Comments Lymphocytes # (test code = Lymphocytes 3.5 1.0-5.5 #) [facility] UptownKbwxawmIWVPLMLLME8402-22-72 02:01:00 Test Item Value Reference Range Interpretation Comments Monocytes (test code = Monocytes) 6.7 2.0-12.0 [facility] UptownLtrlpoyAXTRJXGWIH9844-48-81 02:01:00 Test Item Value Reference Range Interpretation Comments Segs (test code = Segs) 54.8 45.0-75.0 [facility] UptownTksgekrOAGPCNJVOG3419-89-35 02:01:00 Test Item Value Reference Range Interpretation Comments Eosinophils (test code = 2.4 See_Comment [A utomated message] The Eosinophils) system which ge nerated this result tra nsmitted reference range : <=4.0. The reference r kat was not used to int erpret this result as normal/abnormal . [facility] UptownLlzijkvZJZRHQIDSM3371-06-52 02:01:00 Test Item Value Reference Range Interpretation Comments Basophils # (test code 0.1 See_Comment [Aut omated message] The = Basophils #) system which generated this result tra nsmitted reference range : <=0.2. The reference r kat was not used to int erpret this result as normal/abnormal . [facility] UptownMtwtmmgKXYZTFEONJ0631-21-86 02:01:00 Test Item Value Reference Range Interpretation Comments Microcyte (test code = 1+ *ABN*(09/17/15 Microcyte) 8:01 PM) [facility] UptownTgajxztKRKADAAHJY2033-99-17 02:01:00 Test Item Value Reference Range Interpretation Comments Eosinophils # (test code 0.2 See_Comment [A utomated message] The = Eosinophils #) system whic h generated this result tra nsmitted reference range : <=0.5. The reference r kat was not used to int erpret this result as normal/abnormal . [facility] UptownWjzjakgELWMXRIYEF2585-34-89 02:01:00 Test Item Value Reference Range Interpretation Comments MPV (test code = MPV) 10.0 7.4-10.4 [facility] UptownKfwxbfcRDDODHNIXV8988-86-99 02:01:00 Test Item Value Reference Range Interpretation Comments RDW (test code = RDW) 16.9 11.5-14.5 [facility] UptownJiisupoNKDXUSEZYG3854-23-93 02:01:00 Test Item Value Reference Range Interpretation Comments Platelet (test code = Platelet) 208 133-450 [facility] UptownEhvzshmDQAQLHNHAR5474-99-56 02:01:00 Test Item Value Reference Range Interpretation Comments MCV (test code = MCV) 77.9 80.0-98.0 [facility] UptownIdxyeqcCYFGDZPWSC2370-92-49 02:01:00 Test Item Value Reference Range Interpretation Comments MCH (test code = MCH) 24.2 pg 27.0-31.0 [facility] UptownEtemcgnQTSGCKSYTI6685-09-61 02:01:00 Test Item Value Reference Range Interpretation Comments MCHC (test code = MCHC) 31.1 32.0-36.0 [facility] UptownObkgodaXCSYUMJQMR8061-63-13 02:01:00 Test Item Value Reference Range Interpretation Comments Hgb (test code = Hgb) 13.3 12.0-16.0 [facility] UptownOapqaueOGCHCAIKEO3678-42-91 02:01:00 Test Item Value Reference Range Interpretation Comments Hct (test code = Hct) 42.6 36.0-48.0 [facility] UptownNwaftguGORNYJHWPA2554-49-89 02:01:00 Test Item Value Reference Range Interpretation Comments WBC (test code = WBC) 9.9 3.7-10.4 [facility] UptownQkvnwhmHEEVZJEMVK6819-23-80 02:01:00 Test Item Value Reference Range Interpretation Comments RBC (test code = RBC) 5.47 4.20-5.40 [facility]2015-12-28 16:57:00 Test Item Value Reference Range Interpretation Comments eGFR (test code = eGFR) 86 [facility]2015-12-28 16:57:00 Test Item Value Reference Range Interpretation Comments Potassium Lvl (test code = Potassium 3.6 3.5-5.1 Lvl) [facility]2015-12-28 16:57:00 Test Item Value Reference Range Interpretation Comments CO2 (test code = CO2) 27 24-32 [facility]2015-12-28 16:57:00 Test Item Value Reference Range Interpretation Comments Chloride Lvl (test code = Chloride Lvl) 103 95-109 [facility]2015-12-28 16:57:00 Test Item Value Reference Range Interpretation Comments Calcium Lvl (test code = Calcium Lvl) 9.4 8.5-10.5 [facility]2015-12-28 16:57:00 Test Item Value Reference Range Interpretation Comments AST (test code = AST) 16 See_Comment [Auto mated message] The system which ge nerated this result transmit arvind reference range : <=37. The reference range was not used to interpr et this result as mario l/abnormal. [facility]2015-12-28 16:57:00 Test Item Value Reference Range Interpretation Comments ALT (test code = ALT) 43 See_Comment [Auto mated message] The system which ge nerated this result transmit arvind reference range : <=65. The reference range was not used to interpr et this result as mario l/abnormal. [facility]2015-12-28 16:57:00 Test Item Value Reference Range Interpretation Comments Alk Phos (test code = Alk Phos) 97 39-136 [facility]2015-12-28 16:57:00 Test Item Value Reference Range Interpretation Comments Albumin Lvl (test code = Albumin Lvl) 3.6 3.5-5.0 [facility]2015-12-28 16:57:00 Test Item Value Reference Range Interpretation Comments Total Protein (test code = Total 7.3 6.4-8.4 Protein) [facility]2015-12-28 16:57:00 Test Item Value Reference Range Interpretation Comments Bili Total (test code = Bili Total) 0.4 0.2-1.3 [facility]2015-12-28 16:57:00 Test Item Value Reference Range Interpretation Comments Glucose Lvl (test code = Glucose Lvl) 95 70-99 [facility]2015-12-28 16:57:00 Test Item Value Reference Range Interpretation Comments Creatinine Lvl (test code = Creatinine 0.93 0.50-1.40 Lvl) [facility]2015-12-28 16:57:00 Test Item Value Reference Range Interpretation Comments BUN (test code = BUN) 9 - [facility]2015-12-28 16:57:00 Test Item Value Reference Range Interpretation Comments Sodium Lvl (test code = Sodium Lvl) 139 135-145 [facility]2015-12-28 16:57:00 Test Item Value Reference Range Interpretation Comments A/G Ratio (test code = A/G Ratio) 1.0 0.7-1.6 [facility]2015-12-28 16:57:00 Test Item Value Reference Range Interpretation Comments Globulin (test code = Globulin) 3.7 2.0-4.0 [facility]2015-12-28 16:57:00 Test Item Value Reference Range Interpretation Comments B/C Ratio (test code = B/C Ratio) 10 - [facility]2015-12-28 16:57:00 Test Item Value Reference Range Interpretation Comments AGAP (test code = AGAP) 12.6 10.0-20.0 [facility]hfqttyGBUUVSAHZFYMB7542-05-12 16:57:00 Test Item Value Reference Range Interpretation Comments S Preg (test code = S Negative *NA*(08/26/15 Preg) 10:57 AM) [facility]ptownPrgpvkvNGZLMMDAYQ9140-20-84 16:57:00 Test Item Value Reference Range Interpretation Comments Eosinophils # (test code 0.4 See_Comment [A utomated message] The = Eosinophils #) system whic h generated this result tra nsmitted reference range : <=0.5. The reference r kat was not used to int erpret this result as normal/abnormal . [facility] UptownLlojsctUDYHQVTCAX6144-01-51 16:57:00 Test Item Value Reference Range Interpretation Comments Microcyte (test code = 1+ *ABN*(08/26/15 Microcyte) 10:57 AM) [facility] UptownQjtejwuRIIYWQIFCS7829-91-05 16:57:00 Test Item Value Reference Range Interpretation Comments Basophils # (test code 0.1 See_Comment [Aut omated message] The = Basophils #) system which generated this result tra nsmitted reference range : <=0.2. The reference r kat was not used to int erpret this result as normal/abnormal . [facility] UptownAfgwmusTKWAHHWNOX9334-60-83 16:57:00 Test Item Value Reference Range Interpretation Comments Monocytes (test code = Monocytes) 8.6 2.0-12.0 [facility] UptownFlvxhwiOETPMTSVBS0689-29-33 16:57:00 Test Item Value Reference Range Interpretation Comments Lymphocytes (test code = Lymphocytes) 40.6 20.0-40.0 [facility] UptownMdlwymcTQDAMCMXXI3087-82-37 16:57:00 Test Item Value Reference Range Interpretation Comments Eosinophils (test code = 5.0 See_Comment [A utomated message] The Eosinophils) system which ge nerated this result tra nsmitted reference range : <=4.0. The reference r kat was not used to int erpret this result as normal/abnormal . [facility] UptownMvevhzwIWNIVHMMSV0335-69-87 16:57:00 Test Item Value Reference Range Interpretation Comments Segs (test code = Segs) 44.8 45.0-75.0 [facility] UptownRbqhcozZKTJNOTJON3520-77-32 16:57:00 Test Item Value Reference Range Interpretation Comments Basophils (test code = 1.0 See_Comment [Aut omated message] The Basophils) system which ge nerated this result tra nsmitted reference range : <=1.0. The reference r kat was not used to int erpret this result as normal/abnormal . [facility] UptownYerbzvnRXHTMCUDDS1267-69-27 16:57:00 Test Item Value Reference Range Interpretation Comments Segs-Bands # (test code = Segs-Bands #) 3.3 1.5-8.1 [facility] UptownPpfdssvWDUKHHSUKY6113-62-23 16:57:00 Test Item Value Reference Range Interpretation Comments Monocytes # (test code 0.6 See_Comment [Aut omated message] The = Monocytes #) system which generated this result tra nsmitted reference range : <=0.8. The reference r kat was not used to int erpret this result as normal/abnormal . [facility] UptownYovizohGNLYWVQDQY8215-92-63 16:57:00 Test Item Value Reference Range Interpretation Comments Lymphocytes # (test code = Lymphocytes 3.0 1.0-5.5 #) [facility] UptownBiunkkiHAGBTLCADU8380-06-35 16:57:00 Test Item Value Reference Range Interpretation Comments PT (test code = PT) 14.0 s 12.0-14.7 [facility] UptownAlbofyjIUHVXACBRE3252-98-22 16:57:00 Test Item Value Reference Range Interpretation Comments INR (test code = INR) 1.05 0.85-1.17 [facility] UptownQifoxuvEXWXLNXZHC9256-82-40 16:57:00 Test Item Value Reference Range Interpretation Comments PTT (test code = PTT) 30.3 s 22.9-35.8 [facility] UptownGspjcfdZRWNXCPHIL8279-71-12 16:57:00 Test Item Value Reference Range Interpretation Comments MPV (test code = MPV) 8.9 7.4-10.4 [facility] UptownAlwpeahGHYFASIWGM6781-96-48 16:57:00 Test Item Value Reference Range Interpretation Comments RDW (test code = RDW) 15.8 11.5-14.5 [facility] UptownPxsrcpdMQYBXVIFDI6664-04-98 16:57:00 Test Item Value Reference Range Interpretation Comments Platelet (test code = Platelet) 271 133-450 [facility] UptownTizcsukHWTHOWBKDU2076-68-37 16:57:00 Test Item Value Reference Range Interpretation Comments WBC (test code = WBC) 7.3 3.7-10.4 [facility] UptownIrlvzljREUUYFGIKX3474-44-90 16:57:00 Test Item Value Reference Range Interpretation Comments RBC (test code = RBC) 5.14 4.20-5.40 [facility] UptownXzyhlgwLCJSOTTYVA2918-57-72 16:57:00 Test Item Value Reference Range Interpretation Comments MCV (test code = MCV) 77.9 80.0-98.0 [facility] UptownTzktdmvAUNQRGNBBY2670-28-06 16:57:00 Test Item Value Reference Range Interpretation Comments MCH (test code = MCH) 23.9 pg 27.0-31.0 [facility] UptownQietmtuSGSQZTKPVU5573-53-29 16:57:00 Test Item Value Reference Range Interpretation Comments MCHC (test code = MCHC) 30.7 32.0-36.0 [facility] UptownHzztwmtKPWNWXCYCI0945-92-68 16:57:00 Test Item Value Reference Range Interpretation Comments Hct (test code = Hct) 40.1 36.0-48.0 [facility] UptownVmqskhqCEXRFUSNLO2548-23-35 16:57:00 Test Item Value Reference Range Interpretation Comments Hgb (test code = Hgb) 12.3 12.0-16.0 [facility]2015-12-28 16:57:00 Test Item Value Reference Range Interpretation Comments eGFR (test code = eGFR) 86 [facility]2015-12-28 16:57:00 Test Item Value Reference Range Interpretation Comments Potassium Lvl (test code = Potassium 3.6 3.5-5.1 Lvl) [facility]2015-12-28 16:57:00 Test Item Value Reference Range Interpretation Comments CO2 (test code = CO2) 27 24-32 [facility]2015-12-28 16:57:00 Test Item Value Reference Range Interpretation Comments Chloride Lvl (test code = Chloride Lvl) 103 95-109 [facility]2015-12-28 16:57:00 Test Item Value Reference Range Interpretation Comments Calcium Lvl (test code = Calcium Lvl) 9.4 8.5-10.5 [facility]2015-12-28 16:57:00 Test Item Value Reference Range Interpretation Comments AST (test code = AST) 16 See_Comment [Auto mated message] The system which ge nerated this result transmit arvind reference range : <=37. The reference range was not used to interpr et this result as mario l/abnormal. [facility]2015-12-28 16:57:00 Test Item Value Reference Range Interpretation Comments ALT (test code = ALT) 43 See_Comment [Auto mated message] The system which ge nerated this result transmit arvind reference range : <=65. The reference range was not used to interpr et this result as mario l/abnormal. [place] 203065-12-28 16:57:00 Test Item Value Reference Range Interpretation Comments Alk Phos (test code = Alk Phos) 97 39-136 [facility]2015-12-28 16:57:00 Test Item Value Reference Range Interpretation Comments Albumin Lvl (test code = Albumin Lvl) 3.6 3.5-5.0 [facility]2015-12-28 16:57:00 Test Item Value Reference Range Interpretation Comments Total Protein (test code = Total 7.3 6.4-8.4 Protein) [facility]2015-12-28 16:57:00 Test Item Value Reference Range Interpretation Comments Bili Total (test code = Bili Total) 0.4 0.2-1.3 [facility]2015-12-28 16:57:00 Test Item Value Reference Range Interpretation Comments Glucose Lvl (test code = Glucose Lvl) 95 70-99 [facility]2015-12-28 16:57:00 Test Item Value Reference Range Interpretation Comments Creatinine Lvl (test code = Creatinine 0.93 0.50-1.40 Lvl) [facility]2015-12-28 16:57:00 Test Item Value Reference Range Interpretation Comments BUN (test code = BUN) 9 7-22 [facility]2015-12-28 16:57:00 Test Item Value Reference Range Interpretation Comments Sodium Lvl (test code = Sodium Lvl) 139 135-145 [facility]2015-12-28 16:57:00 Test Item Value Reference Range Interpretation Comments A/G Ratio (test code = A/G Ratio) 1.0 0.7-1.6 [facility]2015-12-28 16:57:00 Test Item Value Reference Range Interpretation Comments Globulin (test code = Globulin) 3.7 2.0-4.0 [facility]2015-12-28 16:57:00 Test Item Value Reference Range Interpretation Comments B/C Ratio (test code = B/C Ratio) 10 6-25 [facility]2015-12-28 16:57:00 Test Item Value Reference Range Interpretation Comments AGAP (test code = AGAP) 12.6 10.0-20.0 [facility] IrvingJzoqfqrOUMVZBYOXWIMJ9285-40-52 16:57:00 Test Item Value Reference Range Interpretation Comments S Preg (test code = S Negative *NA*(08/26/15 Preg) 10:57 AM) [facility] UptownDxdqqfeDUTMOUHEFV1449-94-64 16:57:00 Test Item Value Reference Range Interpretation Comments Eosinophils # (test code 0.4 See_Comment [A utomated message] The = Eosinophils #) system whic h generated this result tra nsmitted reference range : <=0.5. The reference r kat was not used to int erpret this result as normal/abnormal . [facility] UptownKpbcrbkXNWYCTTBUV6339-65-97 16:57:00 Test Item Value Reference Range Interpretation Comments Microcyte (test code = 1+ *ABN*(08/26/15 Microcyte) 10:57 AM) [facility] UptownAfdwkdoYUCSZNBBCW9452-88-24 16:57:00 Test Item Value Reference Range Interpretation Comments Basophils # (test code 0.1 See_Comment [Aut omated message] The = Basophils #) system which generated this result tra nsmitted reference range : <=0.2. The reference r kat was not used to int erpret this result as normal/abnormal . [facility] UptownScqxtwpTIUYXDOXFU2618-15-09 16:57:00 Test Item Value Reference Range Interpretation Comments Monocytes (test code = Monocytes) 8.6 2.0-12.0 [facility] UptownDwdzfzcQTHHZMEBUD0976-40-41 16:57:00 Test Item Value Reference Range Interpretation Comments Lymphocytes (test code = Lymphocytes) 40.6 20.0-40.0 [facility] UptownWjmgclcGGBIXFHOKB9427-32-28 16:57:00 Test Item Value Reference Range Interpretation Comments Eosinophils (test code = 5.0 See_Comment [A utomated message] The Eosinophils) system which ge nerated this result tra nsmitted reference range : <=4.0. The reference r kat was not used to int erpret this result as normal/abnormal . [facility] UptownVkkoddjGYOCLNTOED4609-31-81 16:57:00 Test Item Value Reference Range Interpretation Comments Segs (test code = Segs) 44.8 45.0-75.0 [facility] UptownTgefblfINIXBZWBYD2686-11-26 16:57:00 Test Item Value Reference Range Interpretation Comments Basophils (test code = 1.0 See_Comment [Aut omated message] The Basophils) system which ge nerated this result tra nsmitted reference range : <=1.0. The reference r kat was not used to int erpret this result as normal/abnormal . [facility] UptownBbqhkdkFBTHWZDKYA4969-39-21 16:57:00 Test Item Value Reference Range Interpretation Comments Segs-Bands # (test code = Segs-Bands #) 3.3 1.5-8.1 [facility] UptownStweklpRZJJGJVQIC7668-86-46 16:57:00 Test Item Value Reference Range Interpretation Comments Monocytes # (test code 0.6 See_Comment [Aut omated message] The = Monocytes #) system which generated this result tra nsmitted reference range : <=0.8. The reference r kat was not used to int erpret this result as normal/abnormal . [facility] UptownUvhxkmyUVWJUIMKGQ0286-95-31 16:57:00 Test Item Value Reference Range Interpretation Comments Lymphocytes # (test code = Lymphocytes 3.0 1.0-5.5 #) [facility] UptownWtyaqiiORPNJDTWVZ0539-42-20 16:57:00 Test Item Value Reference Range Interpretation Comments PT (test code = PT) 14.0 s 12.0-14.7 [facility] UptownIddiohhHKADSVEEXN8558-36-33 16:57:00 Test Item Value Reference Range Interpretation Comments INR (test code = INR) 1.05 0.85-1.17 [facility] UptownHxgtpmdMRLRIKFTPO9160-32-75 16:57:00 Test Item Value Reference Range Interpretation Comments PTT (test code = PTT) 30.3 s 22.9-35.8 [facility] UptownHbjapntZGXCKGRQNP4647-80-68 16:57:00 Test Item Value Reference Range Interpretation Comments MPV (test code = MPV) 8.9 7.4-10.4 [facility] UptownNskjqmuOFCQBMOYRB4325-31-33 16:57:00 Test Item Value Reference Range Interpretation Comments RDW (test code = RDW) 15.8 11.5-14.5 [facility] UptownLerkzsqKKCGPSKKSU5689-36-70 16:57:00 Test Item Value Reference Range Interpretation Comments Platelet (test code = Platelet) 271 133-450 [facility] UptownUraieilFGZXCBHNSN4328-09-13 16:57:00 Test Item Value Reference Range Interpretation Comments WBC (test code = WBC) 7.3 3.7-10.4 [facility] UptownIpyticuMOVBBMAIGI8454-86-85 16:57:00 Test Item Value Reference Range Interpretation Comments RBC (test code = RBC) 5.14 4.20-5.40 [facility] UptownLkcdlmyLWGYNYSZIV9590-90-70 16:57:00 Test Item Value Reference Range Interpretation Comments MCV (test code = MCV) 77.9 80.0-98.0 [facility] UptownYhefzjrYUUNSSILNQ1948-85-12 16:57:00 Test Item Value Reference Range Interpretation Comments MCH (test code = MCH) 23.9 pg 27.0-31.0 [facility] UptownYublpufTLMEAMVTMP3602-93-02 16:57:00 Test Item Value Reference Range Interpretation Comments MCHC (test code = MCHC) 30.7 32.0-36.0 [facility] UptownUcejqteCMGYULMDNV9594-04-01 16:57:00 Test Item Value Reference Range Interpretation Comments Hct (test code = Hct) 40.1 36.0-48.0 [facility] UptownGpbgsfsUUVJUKXNSV6137-94-10 16:57:00 Test Item Value Reference Range Interpretation Comments Hgb (test code = Hgb) 12.3 12.0-16.0 [facility]2015-12-28 16:57:00 Test Item Value Reference Range Interpretation Comments eGFR (test code = eGFR) 86 [facility]2015-12-28 16:57:00 Test Item Value Reference Range Interpretation Comments Potassium Lvl (test code = Potassium 3.6 3.5-5.1 Lvl) [facility]2015-12-28 16:57:00 Test Item Value Reference Range Interpretation Comments CO2 (test code = CO2) 27 24-32 [facility]2015-12-28 16:57:00 Test Item Value Reference Range Interpretation Comments Chloride Lvl (test code = Chloride Lvl) 103 95-109 [facility]2015-12-28 16:57:00 Test Item Value Reference Range Interpretation Comments Calcium Lvl (test code = Calcium Lvl) 9.4 8.5-10.5 [facility]2015-12-28 16:57:00 Test Item Value Reference Range Interpretation Comments AST (test code = AST) 16 See_Comment [Auto mated message] The system which ge nerated this result transmit arvind reference range : <=37. The reference range was not used to interpr et this result as mario l/abnormal. [place] 203065-12-28 16:57:00 Test Item Value Reference Range Interpretation Comments ALT (test code = ALT) 43 See_Comment [Auto mated message] The system which ge nerated this result transmit arvind reference range : <=65. The reference range was not used to interpr et this result as mario l/abnormal. [facility]2015-12-28 16:57:00 Test Item Value Reference Range Interpretation Comments Alk Phos (test code = Alk Phos) 97 39-136 [facility]2015-12-28 16:57:00 Test Item Value Reference Range Interpretation Comments Albumin Lvl (test code = Albumin Lvl) 3.6 3.5-5.0 [facility]2015-12-28 16:57:00 Test Item Value Reference Range Interpretation Comments Total Protein (test code = Total 7.3 6.4-8.4 Protein) [facility]2015-12-28 16:57:00 Test Item Value Reference Range Interpretation Comments Bili Total (test code = Bili Total) 0.4 0.2-1.3 [facility]2015-12-28 16:57:00 Test Item Value Reference Range Interpretation Comments Glucose Lvl (test code = Glucose Lvl) 95 70-99 [facility]2015-12-28 16:57:00 Test Item Value Reference Range Interpretation Comments Creatinine Lvl (test code = Creatinine 0.93 0.50-1.40 Lvl) [facility]2015-12-28 16:57:00 Test Item Value Reference Range Interpretation Comments BUN (test code = BUN) 9 7-22 [facility]2015-12-28 16:57:00 Test Item Value Reference Range Interpretation Comments Sodium Lvl (test code = Sodium Lvl) 139 135-145 [facility]2015-12-28 16:57:00 Test Item Value Reference Range Interpretation Comments A/G Ratio (test code = A/G Ratio) 1.0 0.7-1.6 [facility]2015-12-28 16:57:00 Test Item Value Reference Range Interpretation Comments Globulin (test code = Globulin) 3.7 2.0-4.0 [facility]2015-12-28 16:57:00 Test Item Value Reference Range Interpretation Comments B/C Ratio (test code = B/C Ratio) 10 6-25 [facility] BPIIT6005-63-53 16:57:00 Test Item Value Reference Range Interpretation Comments AGAP (test code = AGAP) 12.6 10.0-20.0 [facility] CenterWuxmyosWTZEVQFHTVCZE7483-38-18 16:57:00 Test Item Value Reference Range Interpretation Comments S Preg (test code = S Negative *NA*(08/26/15 Preg) 10:57 AM) [facility] UptownUcyzbkhIVFKWMOMWS7331-11-63 16:57:00 Test Item Value Reference Range Interpretation Comments Eosinophils # (test code 0.4 See_Comment [A utomated message] The = Eosinophils #) system whic h generated this result tra nsmitted reference range : <=0.5. The reference r kat was not used to int erpret this result as normal/abnormal . [facility] UptownNqevvupNNIWNTYAWK9902-24-97 16:57:00 Test Item Value Reference Range Interpretation Comments Microcyte (test code = 1+ *ABN*(08/26/15 Microcyte) 10:57 AM) [facility] UptownTghircvKSJGXEWIPX7136-11-57 16:57:00 Test Item Value Reference Range Interpretation Comments Basophils # (test code 0.1 See_Comment [Aut omated message] The = Basophils #) system which generated this result tra nsmitted reference range : <=0.2. The reference r kat was not used to int erpret this result as normal/abnormal . [facility] UptownAstspviZSBMKXICZA1975-17-83 16:57:00 Test Item Value Reference Range Interpretation Comments Monocytes (test code = Monocytes) 8.6 2.0-12.0 [facility] UptownDegnubuYAGCWPSSTL1648-87-78 16:57:00 Test Item Value Reference Range Interpretation Comments Lymphocytes (test code = Lymphocytes) 40.6 20.0-40.0 [facility] UptownRdmbopmGSBLBBAIMH9146-97-01 16:57:00 Test Item Value Reference Range Interpretation Comments Eosinophils (test code = 5.0 See_Comment [A utomated message] The Eosinophils) system which ge nerated this result tra nsmitted reference range : <=4.0. The reference r kat was not used to int erpret this result as normal/abnormal . [facility] UptownCxfxiqzGVEXQBOWWY7326-54-04 16:57:00 Test Item Value Reference Range Interpretation Comments Segs (test code = Segs) 44.8 45.0-75.0 [facility] UptownLgupiwkGAINHROLOY5605-89-52 16:57:00 Test Item Value Reference Range Interpretation Comments Basophils (test code = 1.0 See_Comment [Aut omated message] The Basophils) system which ge nerated this result tra nsmitted reference range : <=1.0. The reference r kat was not used to int erpret this result as normal/abnormal . [facility] UptownSxeblacVOWDJOMCUH3802-38-75 16:57:00 Test Item Value Reference Range Interpretation Comments Segs-Bands # (test code = Segs-Bands #) 3.3 1.5-8.1 [facility] UptownLvrysgqAPCSSKQDSR2610-96-60 16:57:00 Test Item Value Reference Range Interpretation Comments Monocytes # (test code 0.6 See_Comment [Aut omated message] The = Monocytes #) system which generated this result tra nsmitted reference range : <=0.8. The reference r kat was not used to int erpret this result as normal/abnormal . [facility] UptownLghcswzQXZQJHULWA6343-76-68 16:57:00 Test Item Value Reference Range Interpretation Comments Lymphocytes # (test code = Lymphocytes 3.0 1.0-5.5 #) [facility] UptownZwcltpmTBBSNAVQOG7375-95-48 16:57:00 Test Item Value Reference Range Interpretation Comments PT (test code = PT) 14.0 s 12.0-14.7 [facility] UptownCggjbrpJLVQIWSIKP6928-21-10 16:57:00 Test Item Value Reference Range Interpretation Comments INR (test code = INR) 1.05 0.85-1.17 [facility] UptownHstqjmhUOVELDSZFS8479-29-66 16:57:00 Test Item Value Reference Range Interpretation Comments PTT (test code = PTT) 30.3 s 22.9-35.8 [facility] UptownDtjvnylOTVDNUAMEC9415-24-02 16:57:00 Test Item Value Reference Range Interpretation Comments MPV (test code = MPV) 8.9 7.4-10.4 [facility] UptownDclnczmEGAFAGFAWA6937-71-39 16:57:00 Test Item Value Reference Range Interpretation Comments RDW (test code = RDW) 15.8 11.5-14.5 [facility] UptownUvfaiavJNUCCEZEOE3471-07-48 16:57:00 Test Item Value Reference Range Interpretation Comments Platelet (test code = Platelet) 271 133-450 [facility] UptownZwfxcbcPGAFSIRVVM2544-61-14 16:57:00 Test Item Value Reference Range Interpretation Comments WBC (test code = WBC) 7.3 3.7-10.4 [facility] UptownSthcnqxRAGGGFTIBK5359-61-05 16:57:00 Test Item Value Reference Range Interpretation Comments RBC (test code = RBC) 5.14 4.20-5.40 [facility] UptownYrbqjooBNKWLZXSDM9702-97-91 16:57:00 Test Item Value Reference Range Interpretation Comments MCV (test code = MCV) 77.9 80.0-98.0 [facility] UptownGwqrkvaKEFDPHTPHF8592-09-95 16:57:00 Test Item Value Reference Range Interpretation Comments MCH (test code = MCH) 23.9 pg 27.0-31.0 [facility] UptownAlpnytzEWIOWUUUNK9811-35-22 16:57:00 Test Item Value Reference Range Interpretation Comments MCHC (test code = MCHC) 30.7 32.0-36.0 [facility] UptownVeqtlttCXKYLWHZPM7652-49-21 16:57:00 Test Item Value Reference Range Interpretation Comments Hct (test code = Hct) 40.1 36.0-48.0 [facility] UptownZklkmvaDFJCZOSXJP4740-20-61 16:57:00 Test Item Value Reference Range Interpretation Comments Hgb (test code = Hgb) 12.3 12.0-16.0 [facility]2015-12-28 16:57:00 Test Item Value Reference Range Interpretation Comments eGFR (test code = eGFR) 86 [facility]2015-12-28 16:57:00 Test Item Value Reference Range Interpretation Comments Potassium Lvl (test code = Potassium 3.6 3.5-5.1 Lvl) [facility]2015-12-28 16:57:00 Test Item Value Reference Range Interpretation Comments CO2 (test code = CO2) 27 24-32 [facility]2015-12-28 16:57:00 Test Item Value Reference Range Interpretation Comments Chloride Lvl (test code = Chloride Lvl) 103 95-109 [facility]2015-12-28 16:57:00 Test Item Value Reference Range Interpretation Comments Calcium Lvl (test code = Calcium Lvl) 9.4 8.5-10.5 [place] 203065-12-28 16:57:00 Test Item Value Reference Range Interpretation Comments AST (test code = AST) 16 See_Comment [Auto mated message] The system which ge nerated this result transmit arvind reference range : <=37. The reference range was not used to interpr et this result as mario l/abnormal. [facility]2015-12-28 16:57:00 Test Item Value Reference Range Interpretation Comments ALT (test code = ALT) 43 See_Comment [Auto mated message] The system which ge nerated this result transmit arvind reference range : <=65. The reference range was not used to interpr et this result as mario l/abnormal. [facility]2015-12-28 16:57:00 Test Item Value Reference Range Interpretation Comments Alk Phos (test code = Alk Phos) 97 39-136 [facility]2015-12-28 16:57:00 Test Item Value Reference Range Interpretation Comments Albumin Lvl (test code = Albumin Lvl) 3.6 3.5-5.0 [facility]2015-12-28 16:57:00 Test Item Value Reference Range Interpretation Comments Total Protein (test code = Total 7.3 6.4-8.4 Protein) [facility]2015-12-28 16:57:00 Test Item Value Reference Range Interpretation Comments Bili Total (test code = Bili Total) 0.4 0.2-1.3 [facility]2015-12-28 16:57:00 Test Item Value Reference Range Interpretation Comments Glucose Lvl (test code = Glucose Lvl) 95 70-99 [facility]2015-12-28 16:57:00 Test Item Value Reference Range Interpretation Comments Creatinine Lvl (test code = Creatinine 0.93 0.50-1.40 Lvl) [facility]2015-12-28 16:57:00 Test Item Value Reference Range Interpretation Comments BUN (test code = BUN) 9 7-22 [facility]2015-12-28 16:57:00 Test Item Value Reference Range Interpretation Comments Sodium Lvl (test code = Sodium Lvl) 139 135-145 [facility]2015-12-28 16:57:00 Test Item Value Reference Range Interpretation Comments A/G Ratio (test code = A/G Ratio) 1.0 0.7-1.6 [facility]2015-12-28 16:57:00 Test Item Value Reference Range Interpretation Comments Globulin (test code = Globulin) 3.7 2.0-4.0 [facility]2015-12-28 16:57:00 Test Item Value Reference Range Interpretation Comments B/C Ratio (test code = B/C Ratio) 10 6-25 [facility]2015-12-28 16:57:00 Test Item Value Reference Range Interpretation Comments AGAP (test code = AGAP) 12.6 10.0-20.0 [facility]XwyuqysGJWUOABTKSJCG8570-59-32 16:57:00 Test Item Value Reference Range Interpretation Comments S Preg (test code = S Negative *NA*(08/26/15 Preg) 10:57 AM) [facility]ownAnwtrjjMLGCPBSHPI2595-71-13 16:57:00 Test Item Value Reference Range Interpretation Comments Eosinophils # (test code 0.4 See_Comment [A utomated message] The = Eosinophils #) system whic h generated this result tra nsmitted reference range : <=0.5. The reference r kat was not used to int erpret this result as normal/abnormal . [facility]ownMmbzrhrXHIGMSZFWD2150-42-73 16:57:00 Test Item Value Reference Range Interpretation Comments Microcyte (test code = 1+ *ABN*(08/26/15 Microcyte) 10:57 AM) [facility]ownXyvuhqmGYNIURBZPF5574-40-76 16:57:00 Test Item Value Reference Range Interpretation Comments Basophils # (test code 0.1 See_Comment [Aut omated message] The = Basophils #) system which generated this result tra nsmitted reference range : <=0.2. The reference r kat was not used to int erpret this result as normal/abnormal . [facility]ptownEijajrsSDQSLIUMWL5853-94-32 16:57:00 Test Item Value Reference Range Interpretation Comments Monocytes (test code = Monocytes) 8.6 2.0-12.0 [facility]ptownKrgqjipMQEHMIDUSU3963-22-61 16:57:00 Test Item Value Reference Range Interpretation Comments Lymphocytes (test code = Lymphocytes) 40.6 20.0-40.0 [facility] UptownJrpaugxEPTNYJJUIP6068-54-24 16:57:00 Test Item Value Reference Range Interpretation Comments Eosinophils (test code = 5.0 See_Comment [A utomated message] The Eosinophils) system which ge nerated this result tra nsmitted reference range : <=4.0. The reference r kat was not used to int erpret this result as normal/abnormal . [facility]ptownSqglkxhAREVZUQMVT1835-11-44 16:57:00 Test Item Value Reference Range Interpretation Comments Segs (test code = Segs) 44.8 45.0-75.0 [facility] UptownIwqhttaBWEVJAUEID1624-78-19 16:57:00 Test Item Value Reference Range Interpretation Comments Basophils (test code = 1.0 See_Comment [Aut omated message] The Basophils) system which ge nerated this result tra nsmitted reference range : <=1.0. The reference r kat was not used to int erpret this result as normal/abnormal . [facility]ptownZeiptbyRQZGAUUQQN8631-96-67 16:57:00 Test Item Value Reference Range Interpretation Comments Segs-Bands # (test code = Segs-Bands #) 3.3 1.5-8.1 [facility] UptownRxonzacYNKWBVJXNF7081-13-51 16:57:00 Test Item Value Reference Range Interpretation Comments Monocytes # (test code 0.6 See_Comment [Aut omated message] The = Monocytes #) system which generated this result tra nsmitted reference range : <=0.8. The reference r kat was not used to int erpret this result as normal/abnormal . [facility] UptownJdczbheQJKXSBTAZD6845-60-57 16:57:00 Test Item Value Reference Range Interpretation Comments Lymphocytes # (test code = Lymphocytes 3.0 1.0-5.5 #) [facility] UptownFamwvfjTCCDCFOIMO7733-03-96 16:57:00 Test Item Value Reference Range Interpretation Comments PT (test code = PT) 14.0 s 12.0-14.7 [facility] UptownBziqviaAJYOFSIOPU8460-22-80 16:57:00 Test Item Value Reference Range Interpretation Comments INR (test code = INR) 1.05 0.85-1.17 [facility] UptownFwfcwmkRJGODSSCYF5805-64-80 16:57:00 Test Item Value Reference Range Interpretation Comments PTT (test code = PTT) 30.3 s 22.9-35.8 [facility] UptownHinhvwgXRGBCXJYTY8604-02-49 16:57:00 Test Item Value Reference Range Interpretation Comments MPV (test code = MPV) 8.9 7.4-10.4 [facility] UptownVbhiqzkUPGDFTPKBG4981-23-90 16:57:00 Test Item Value Reference Range Interpretation Comments RDW (test code = RDW) 15.8 11.5-14.5 [facility] UptownCsmdkatMMGULHZPYZ4111-49-12 16:57:00 Test Item Value Reference Range Interpretation Comments Platelet (test code = Platelet) 271 133-450 [facility] UptownKfghpbnLDAUEPWYXS3017-37-40 16:57:00 Test Item Value Reference Range Interpretation Comments WBC (test code = WBC) 7.3 3.7-10.4 [facility] UptownLagcyzzWKGBMIXLQJ6657-02-39 16:57:00 Test Item Value Reference Range Interpretation Comments RBC (test code = RBC) 5.14 4.20-5.40 [facility] UptownXkrjmwrCWXFAOVOWR7703-09-98 16:57:00 Test Item Value Reference Range Interpretation Comments MCV (test code = MCV) 77.9 80.0-98.0 [facility] UptownPhbxentQJSGHELQTI6154-17-84 16:57:00 Test Item Value Reference Range Interpretation Comments MCH (test code = MCH) 23.9 pg 27.0-31.0 [facility] UptownDnpnuraYDRQTIMFDY9833-61-69 16:57:00 Test Item Value Reference Range Interpretation Comments MCHC (test code = MCHC) 30.7 32.0-36.0 [facility] UptownNihythcMNCIDYHNOT8204-25-54 16:57:00 Test Item Value Reference Range Interpretation Comments Hct (test code = Hct) 40.1 36.0-48.0 [facility] UptownLblhebdULOTKWEJSE3554-84-56 16:57:00 Test Item Value Reference Range Interpretation Comments Hgb (test code = Hgb) 12.3 12.0-16.0 [facility]2015-12-28 16:57:00 Test Item Value Reference Range Interpretation Comments eGFR (test code = eGFR) 86 [facility]2015-12-28 16:57:00 Test Item Value Reference Range Interpretation Comments Potassium Lvl (test code = Potassium 3.6 3.5-5.1 Lvl) [facility]2015-12-28 16:57:00 Test Item Value Reference Range Interpretation Comments CO2 (test code = CO2) 27 24-32 [facility]2015-12-28 16:57:00 Test Item Value Reference Range Interpretation Comments Chloride Lvl (test code = Chloride Lvl) 103 95-109 [facility]2015-12-28 16:57:00 Test Item Value Reference Range Interpretation Comments Calcium Lvl (test code = Calcium Lvl) 9.4 8.5-10.5 [facility]2015-12-28 16:57:00 Test Item Value Reference Range Interpretation Comments AST (test code = AST) 16 See_Comment [Auto mated message] The system which ge nerated this result transmit arvind reference range : <=37. The reference range was not used to interpr et this result as mario l/abnormal. [facility]2015-12-28 16:57:00 Test Item Value Reference Range Interpretation Comments ALT (test code = ALT) 43 See_Comment [Auto mated message] The system which ge nerated this result transmit arvind reference range : <=65. The reference range was not used to interpr et this result as mario l/abnormal. [facility]2015-12-28 16:57:00 Test Item Value Reference Range Interpretation Comments Alk Phos (test code = Alk Phos) 97 39-136 [facility]2015-12-28 16:57:00 Test Item Value Reference Range Interpretation Comments Albumin Lvl (test code = Albumin Lvl) 3.6 3.5-5.0 [facility]2015-12-28 16:57:00 Test Item Value Reference Range Interpretation Comments Total Protein (test code = Total 7.3 6.4-8.4 Protein) [facility]2015-12-28 16:57:00 Test Item Value Reference Range Interpretation Comments Bili Total (test code = Bili Total) 0.4 0.2-1.3 [place] 203065-12-28 16:57:00 Test Item Value Reference Range Interpretation Comments Glucose Lvl (test code = Glucose Lvl) 95 70-99 [facility]2015-12-28 16:57:00 Test Item Value Reference Range Interpretation Comments Creatinine Lvl (test code = Creatinine 0.93 0.50-1.40 Lvl) [facility]2015-12-28 16:57:00 Test Item Value Reference Range Interpretation Comments BUN (test code = BUN) 9 - [facility]2015-12-28 16:57:00 Test Item Value Reference Range Interpretation Comments Sodium Lvl (test code = Sodium Lvl) 139 135-145 [facility]2015-12-28 16:57:00 Test Item Value Reference Range Interpretation Comments A/G Ratio (test code = A/G Ratio) 1.0 0.7-1.6 [facility]2015-12-28 16:57:00 Test Item Value Reference Range Interpretation Comments Globulin (test code = Globulin) 3.7 2.0-4.0 [facility]2015-12-28 16:57:00 Test Item Value Reference Range Interpretation Comments B/C Ratio (test code = B/C Ratio) 10 - [facility]2015-12-28 16:57:00 Test Item Value Reference Range Interpretation Comments AGAP (test code = AGAP) 12.6 10.0-20.0 [facility] CenterMqlpmbnOOHOBYGWKHMZT0907-25-85 16:57:00 Test Item Value Reference Range Interpretation Comments S Preg (test code = S Negative *NA*(08/26/15 Preg) 10:57 AM) [facility] UptownUruqkroIDBCNNANXA7314-46-45 16:57:00 Test Item Value Reference Range Interpretation Comments Eosinophils # (test code 0.4 See_Comment [A utomated message] The = Eosinophils #) system whic h generated this result tra nsmitted reference range : <=0.5. The reference r kat was not used to int erpret this result as normal/abnormal . [facility] UptownBkjrreeLHJPHTKORH7906-38-94 16:57:00 Test Item Value Reference Range Interpretation Comments Microcyte (test code = 1+ *ABN*(08/26/15 Microcyte) 10:57 AM) [facility]ptownWsxpjwxZTIKFHGYYC6106-02-97 16:57:00 Test Item Value Reference Range Interpretation Comments Basophils # (test code 0.1 See_Comment [Aut omated message] The = Basophils #) system which generated this result tra nsmitted reference range : <=0.2. The reference r kat was not used to int erpret this result as normal/abnormal . [facility] UptownTdmfvdgDTRIBTNUJC9197-44-02 16:57:00 Test Item Value Reference Range Interpretation Comments Monocytes (test code = Monocytes) 8.6 2.0-12.0 [facility] UptownZydzgznSMEPMUYGYO8741-57-01 16:57:00 Test Item Value Reference Range Interpretation Comments Lymphocytes (test code = Lymphocytes) 40.6 20.0-40.0 [facility] UptownOwlewmkSWYMURCDOH8914-69-14 16:57:00 Test Item Value Reference Range Interpretation Comments Eosinophils (test code = 5.0 See_Comment [A utomated message] The Eosinophils) system which ge nerated this result tra nsmitted reference range : <=4.0. The reference r kat was not used to int erpret this result as normal/abnormal . [facility] UptownMtboatmXEPZQLFADI4456-03-18 16:57:00 Test Item Value Reference Range Interpretation Comments Segs (test code = Segs) 44.8 45.0-75.0 [facility] UptownRomfaamGSTINKDYOM4150-58-33 16:57:00 Test Item Value Reference Range Interpretation Comments Basophils (test code = 1.0 See_Comment [Aut omated message] The Basophils) system which ge nerated this result tra nsmitted reference range : <=1.0. The reference r kat was not used to int erpret this result as normal/abnormal . [facility] UptownLyncabqCREUDDEPUR2208-63-28 16:57:00 Test Item Value Reference Range Interpretation Comments Segs-Bands # (test code = Segs-Bands #) 3.3 1.5-8.1 [facility] UptownQbcjdxuAURMFAJYAW6570-50-39 16:57:00 Test Item Value Reference Range Interpretation Comments Monocytes # (test code 0.6 See_Comment [Aut omated message] The = Monocytes #) system which generated this result tra nsmitted reference range : <=0.8. The reference r kat was not used to int erpret this result as normal/abnormal . [facility] UptownEfhojozBTBCERHXPT1483-38-14 16:57:00 Test Item Value Reference Range Interpretation Comments Lymphocytes # (test code = Lymphocytes 3.0 1.0-5.5 #) [facility] UptownRpnszwnWTVEIOKAKD1333-29-49 16:57:00 Test Item Value Reference Range Interpretation Comments PT (test code = PT) 14.0 s 12.0-14.7 [facility] UptownZbztsslYCMRNSORPC3782-93-79 16:57:00 Test Item Value Reference Range Interpretation Comments INR (test code = INR) 1.05 0.85-1.17 [facility] UptownQmignsvLLFUYAIIAD8701-83-43 16:57:00 Test Item Value Reference Range Interpretation Comments PTT (test code = PTT) 30.3 s 22.9-35.8 [facility] UptownGzqrvmoQDADSXUOUN2649-61-22 16:57:00 Test Item Value Reference Range Interpretation Comments MPV (test code = MPV) 8.9 7.4-10.4 [facility] UptownUwcklziWSCUSTSNZT1693-24-06 16:57:00 Test Item Value Reference Range Interpretation Comments RDW (test code = RDW) 15.8 11.5-14.5 [facility] UptownAwexryoTGKRLIWSBK0713-03-58 16:57:00 Test Item Value Reference Range Interpretation Comments Platelet (test code = Platelet) 271 133-450 [facility] UptownWuwktgpZLFYMUTVOU3089-86-13 16:57:00 Test Item Value Reference Range Interpretation Comments WBC (test code = WBC) 7.3 3.7-10.4 [facility] UptownQnimgmjALTJCBNZRU6926-38-50 16:57:00 Test Item Value Reference Range Interpretation Comments RBC (test code = RBC) 5.14 4.20-5.40 [facility] UptownCkesixaHPKGYFWMPG7547-93-47 16:57:00 Test Item Value Reference Range Interpretation Comments MCV (test code = MCV) 77.9 80.0-98.0 [facility] UptownVzuzkvkKCTRBKWBYE4180-02-56 16:57:00 Test Item Value Reference Range Interpretation Comments MCH (test code = MCH) 23.9 pg 27.0-31.0 [facility] UptownFdegvwhRNWNKLIPHA1286-93-90 16:57:00 Test Item Value Reference Range Interpretation Comments MCHC (test code = MCHC) 30.7 32.0-36.0 [facility] UptownJfhaspvLMDZSWKVBF1670-41-24 16:57:00 Test Item Value Reference Range Interpretation Comments Hct (test code = Hct) 40.1 36.0-48.0 [facility] UptownAelectvTDMTXAGKVB6517-59-69 16:57:00 Test Item Value Reference Range Interpretation Comments Hgb (test code = Hgb) 12.3 12.0-16.0 [facility]2015-12-28 16:57:00 Test Item Value Reference Range Interpretation Comments eGFR (test code = eGFR) 86 [facility] LBEMP7228-94-82 16:57:00 Test Item Value Reference Range Interpretation Comments Potassium Lvl (test code = Potassium 3.6 3.5-5.1 Lvl) [facility]2015-12-28 16:57:00 Test Item Value Reference Range Interpretation Comments CO2 (test code = CO2) 27 24-32 [facility]2015-12-28 16:57:00 Test Item Value Reference Range Interpretation Comments Chloride Lvl (test code = Chloride Lvl) 103 95-109 [facility]2015-12-28 16:57:00 Test Item Value Reference Range Interpretation Comments Calcium Lvl (test code = Calcium Lvl) 9.4 8.5-10.5 [facility]2015-12-28 16:57:00 Test Item Value Reference Range Interpretation Comments AST (test code = AST) 16 See_Comment [Auto mated message] The system which ge nerated this result transmit arvind reference range : <=37. The reference range was not used to interpr et this result as mario l/abnormal. [facility]2015-12-28 16:57:00 Test Item Value Reference Range Interpretation Comments ALT (test code = ALT) 43 See_Comment [Auto mated message] The system which ge nerated this result transmit arvind reference range : <=65. The reference range was not used to interpr et this result as mario l/abnormal. [facility]2015-12-28 16:57:00 Test Item Value Reference Range Interpretation Comments Alk Phos (test code = Alk Phos) 97 39-136 [facility]2015-12-28 16:57:00 Test Item Value Reference Range Interpretation Comments Albumin Lvl (test code = Albumin Lvl) 3.6 3.5-5.0 [facility]2015-12-28 16:57:00 Test Item Value Reference Range Interpretation Comments Total Protein (test code = Total 7.3 6.4-8.4 Protein) [facility]2015-12-28 16:57:00 Test Item Value Reference Range Interpretation Comments Bili Total (test code = Bili Total) 0.4 0.2-1.3 [facility]2015-12-28 16:57:00 Test Item Value Reference Range Interpretation Comments Glucose Lvl (test code = Glucose Lvl) 95 70-99 [facility]2015-12-28 16:57:00 Test Item Value Reference Range Interpretation Comments Creatinine Lvl (test code = Creatinine 0.93 0.50-1.40 Lvl) [facility]2015-12-28 16:57:00 Test Item Value Reference Range Interpretation Comments BUN (test code = BUN) 9 7-22 [facility]2015-12-28 16:57:00 Test Item Value Reference Range Interpretation Comments Sodium Lvl (test code = Sodium Lvl) 139 135-145 [facility]2015-12-28 16:57:00 Test Item Value Reference Range Interpretation Comments A/G Ratio (test code = A/G Ratio) 1.0 0.7-1.6 [facility]2015-12-28 16:57:00 Test Item Value Reference Range Interpretation Comments Globulin (test code = Globulin) 3.7 2.0-4.0 [facility]2015-12-28 16:57:00 Test Item Value Reference Range Interpretation Comments B/C Ratio (test code = B/C Ratio) 10 - [facility]2015-12-28 16:57:00 Test Item Value Reference Range Interpretation Comments AGAP (test code = AGAP) 12.6 10.0-20.0 [place] 39844015-12-28 16:57:00 Test Item Value Reference Range Interpretation Comments S Preg (test code = S Negative *NA*(08/26/15 Preg) 10:57 AM) [facility] UptownWhrpwhkGOXNHYBPBL6946-74-78 16:57:00 Test Item Value Reference Range Interpretation Comments Eosinophils # (test code 0.4 See_Comment [A utomated message] The = Eosinophils #) system whic h generated this result tra nsmitted reference range : <=0.5. The reference r kat was not used to int erpret this result as normal/abnormal . [facility] UptownQimikswHVPMHAVYFQ0441-42-41 16:57:00 Test Item Value Reference Range Interpretation Comments Microcyte (test code = 1+ *ABN*(08/26/15 Microcyte) 10:57 AM) [facility] UptownYtvageyIQJOPIEIJV4210-74-98 16:57:00 Test Item Value Reference Range Interpretation Comments Basophils # (test code 0.1 See_Comment [Aut omated message] The = Basophils #) system which generated this result tra nsmitted reference range : <=0.2. The reference r kat was not used to int erpret this result as normal/abnormal . [facility] UptownCdnlnjsJWLTGRXQQL6820-21-66 16:57:00 Test Item Value Reference Range Interpretation Comments Monocytes (test code = Monocytes) 8.6 2.0-12.0 [facility] UptownKjtpgxaKTELCIIWDV1521-13-50 16:57:00 Test Item Value Reference Range Interpretation Comments Lymphocytes (test code = Lymphocytes) 40.6 20.0-40.0 [facility] UptownNrggvyhORQOJRQWMU6735-53-83 16:57:00 Test Item Value Reference Range Interpretation Comments Eosinophils (test code = 5.0 See_Comment [A utomated message] The Eosinophils) system which ge nerated this result tra nsmitted reference range : <=4.0. The reference r kat was not used to int erpret this result as normal/abnormal . [facility] UptownIorymcaVIERCNKBGS4070-47-20 16:57:00 Test Item Value Reference Range Interpretation Comments Segs (test code = Segs) 44.8 45.0-75.0 [facility] UptownJyooknvMAUIFIUWVN0606-07-24 16:57:00 Test Item Value Reference Range Interpretation Comments Basophils (test code = 1.0 See_Comment [Aut omated message] The Basophils) system which ge nerated this result tra nsmitted reference range : <=1.0. The reference r kat was not used to int erpret this result as normal/abnormal . [facility] UptownBxcpkrwQZOJPZQWUD3618-98-17 16:57:00 Test Item Value Reference Range Interpretation Comments Segs-Bands # (test code = Segs-Bands #) 3.3 1.5-8.1 [facility] UptownUchjgtrPCCNUVLSPO8028-99-50 16:57:00 Test Item Value Reference Range Interpretation Comments Monocytes # (test code 0.6 See_Comment [Aut omated message] The = Monocytes #) system which generated this result tra nsmitted reference range : <=0.8. The reference r kat was not used to int erpret this result as normal/abnormal . [facility] UptownPlbmrjxVYOHQWGOEY0795-44-92 16:57:00 Test Item Value Reference Range Interpretation Comments Lymphocytes # (test code = Lymphocytes 3.0 1.0-5.5 #) [facility] UptownQquarsxDDQSKBVDUI4714-11-60 16:57:00 Test Item Value Reference Range Interpretation Comments PT (test code = PT) 14.0 s 12.0-14.7 [facility] UptownQazgalgRTAIOKCYZF5818-58-76 16:57:00 Test Item Value Reference Range Interpretation Comments INR (test code = INR) 1.05 0.85-1.17 [place] [id number] 16:57:00 Test Item Value Reference Range Interpretation Comments PTT (test code = PTT) 30.3 s 22.9-35.8 [facility]HvxutxbRJPPNZGIRY1994-96-14 16:57:00 Test Item Value Reference Range Interpretation Comments MPV (test code = MPV) 8.9 7.4-10.4 [place] 733975-12-28 16:57:00 Test Item Value Reference Range Interpretation Comments RDW (test code = RDW) 15.8 11.5-14.5 [facility]ownDfuvgsqYHNIKFUVDO3196-48-54 16:57:00 Test Item Value Reference Range Interpretation Comments Platelet (test code = Platelet) 271 133-450 [facility]ptownLcyqrhxPDXRUSNYRL9219-60-04 16:57:00 Test Item Value Reference Range Interpretation Comments WBC (test code = WBC) 7.3 3.7-10.4 [facility]2015-12-28 16:57:00 Test Item Value Reference Range Interpretation Comments eGFR (test code = eGFR) 86 [facility]2015-12-28 16:57:00 Test Item Value Reference Range Interpretation Comments Potassium Lvl (test code = Potassium 3.6 3.5-5.1 Lvl) [facility]2015-12-28 16:57:00 Test Item Value Reference Range Interpretation Comments CO2 (test code = CO2) 27 24-32 [facility]2015-12-28 16:57:00 Test Item Value Reference Range Interpretation Comments Chloride Lvl (test code = Chloride Lvl) 103 95-109 [facility]2015-12-28 16:57:00 Test Item Value Reference Range Interpretation Comments Calcium Lvl (test code = Calcium Lvl) 9.4 8.5-10.5 [facility]2015-12-28 16:57:00 Test Item Value Reference Range Interpretation Comments AST (test code = AST) 16 See_Comment [Auto mated message] The system which ge nerated this result transmit arvind reference range : <=37. The reference range was not used to interpr et this result as mario l/abnormal. [facility]ptownRiqtiynKJWJRGRQQD3140-51-45 16:57:00 Test Item Value Reference Range Interpretation Comments RBC (test code = RBC) 5.14 4.20-5.40 [facility]2015-12-28 16:57:00 Test Item Value Reference Range Interpretation Comments ALT (test code = ALT) 43 See_Comment [Auto mated message] The system which ge nerated this result transmit arvind reference range : <=65. The reference range was not used to interpr et this result as mario l/abnormal. [facility]2015-12-28 16:57:00 Test Item Value Reference Range Interpretation Comments Alk Phos (test code = Alk Phos) 97 39-136 [facility]2015-12-28 16:57:00 Test Item Value Reference Range Interpretation Comments Albumin Lvl (test code = Albumin Lvl) 3.6 3.5-5.0 [facility]2015-12-28 16:57:00 Test Item Value Reference Range Interpretation Comments Total Protein (test code = Total 7.3 6.4-8.4 Protein) [facility]2015-12-28 16:57:00 Test Item Value Reference Range Interpretation Comments Bili Total (test code = Bili Total) 0.4 0.2-1.3 [facility]2015-12-28 16:57:00 Test Item Value Reference Range Interpretation Comments Glucose Lvl (test code = Glucose Lvl) 95 70-99 [facility]2015-12-28 16:57:00 Test Item Value Reference Range Interpretation Comments Creatinine Lvl (test code = Creatinine 0.93 0.50-1.40 Lvl) [facility]2015-12-28 16:57:00 Test Item Value Reference Range Interpretation Comments BUN (test code = BUN) 9 7-22 [facility]2015-12-28 16:57:00 Test Item Value Reference Range Interpretation Comments Sodium Lvl (test code = Sodium Lvl) 139 135-145 [facility]2015-12-28 16:57:00 Test Item Value Reference Range Interpretation Comments A/G Ratio (test code = A/G Ratio) 1.0 0.7-1.6 [facility]ptownWrzeysfMSRTNYROLA5511-54-25 16:57:00 Test Item Value Reference Range Interpretation Comments MCV (test code = MCV) 77.9 80.0-98.0 [facility]2015-12-28 16:57:00 Test Item Value Reference Range Interpretation Comments Globulin (test code = Globulin) 3.7 2.0-4.0 [facility]2015-12-28 16:57:00 Test Item Value Reference Range Interpretation Comments B/C Ratio (test code = B/C Ratio) 10 6-25 [facility]2015-12-28 16:57:00 Test Item Value Reference Range Interpretation Comments AGAP (test code = AGAP) 12.6 10.0-20.0 [place] 39844015-12-28 16:57:00 Test Item Value Reference Range Interpretation Comments S Preg (test code = S Negative *NA*(08/26/15 Preg) 10:57 AM) [facility] UptownYpfposhCVHCNDSATG1550-34-06 16:57:00 Test Item Value Reference Range Interpretation Comments Eosinophils # (test code 0.4 See_Comment [A utomated message] The = Eosinophils #) system whic h generated this result tra nsmitted reference range : <=0.5. The reference r kat was not used to int erpret this result as normal/abnormal . [facility] UptownCcuhfurIXVOCYWVAS2350-17-63 16:57:00 Test Item Value Reference Range Interpretation Comments Microcyte (test code = 1+ *ABN*(08/26/15 Microcyte) 10:57 AM) [facility] UptownQtvbafnVXYMICIQGH6558-83-06 16:57:00 Test Item Value Reference Range Interpretation Comments Basophils # (test code 0.1 See_Comment [Aut omated message] The = Basophils #) system which generated this result tra nsmitted reference range : <=0.2. The reference r kat was not used to int erpret this result as normal/abnormal . [facility] UptownBykuiezMUYBXGHHIK7498-63-13 16:57:00 Test Item Value Reference Range Interpretation Comments Monocytes (test code = Monocytes) 8.6 2.0-12.0 [facility] UptownFcvgisjDAOSYWFEDV6261-75-02 16:57:00 Test Item Value Reference Range Interpretation Comments Lymphocytes (test code = Lymphocytes) 40.6 20.0-40.0 [facility] UptownMprllmiGXIKYSHRVN4647-15-35 16:57:00 Test Item Value Reference Range Interpretation Comments Eosinophils (test code = 5.0 See_Comment [A utomated message] The Eosinophils) system which ge nerated this result tra nsmitted reference range : <=4.0. The reference r kat was not used to int erpret this result as normal/abnormal . [facility] UptownLvrwvelDPKEAVTLIO7242-40-49 16:57:00 Test Item Value Reference Range Interpretation Comments MCH (test code = MCH) 23.9 pg 27.0-31.0 [facility] UptownLtmskfmTBOZNRAMFO2270-16-64 16:57:00 Test Item Value Reference Range Interpretation Comments Segs (test code = Segs) 44.8 45.0-75.0 [facility] UptownTqwcdbyHCBGWLMZSS4428-57-43 16:57:00 Test Item Value Reference Range Interpretation Comments Basophils (test code = 1.0 See_Comment [Aut omated message] The Basophils) system which ge nerated this result tra nsmitted reference range : <=1.0. The reference r kat was not used to int erpret this result as normal/abnormal . [facility] UptownUcdxibtHUQDYUSTZL4662-89-19 16:57:00 Test Item Value Reference Range Interpretation Comments Segs-Bands # (test code = Segs-Bands #) 3.3 1.5-8.1 [facility] UptownPtankwxQUMSJCTDZK3160-83-02 16:57:00 Test Item Value Reference Range Interpretation Comments Monocytes # (test code 0.6 See_Comment [Aut omated message] The = Monocytes #) system which generated this result tra nsmitted reference range : <=0.8. The reference r kat was not used to int erpret this result as normal/abnormal . [facility] UptownTzfdoubCNNSKMOADW1789-85-01 16:57:00 Test Item Value Reference Range Interpretation Comments Lymphocytes # (test code = Lymphocytes 3.0 1.0-5.5 #) [facility] UptownQzwawubAYIFSUGIFV4961-29-90 16:57:00 Test Item Value Reference Range Interpretation Comments PT (test code = PT) 14.0 s 12.0-14.7 [facility] UptownIupbmjsAGMERQKDAO6751-60-55 16:57:00 Test Item Value Reference Range Interpretation Comments INR (test code = INR) 1.05 0.85-1.17 [facility] UptownJzaxlilCTRSUQNBXV1589-96-09 16:57:00 Test Item Value Reference Range Interpretation Comments PTT (test code = PTT) 30.3 s 22.9-35.8 [facility] UptownYkaqnwlAHHECZLRTO0997-31-61 16:57:00 Test Item Value Reference Range Interpretation Comments MPV (test code = MPV) 8.9 7.4-10.4 [facility] UptownKqzdpnpMNJGBJYLPY7975-20-31 16:57:00 Test Item Value Reference Range Interpretation Comments RDW (test code = RDW) 15.8 11.5-14.5 [facility] UptownLxkzgigWHKDNSLTMM2113-03-67 16:57:00 Test Item Value Reference Range Interpretation Comments MCHC (test code = MCHC) 30.7 32.0-36.0 [facility] UptownSrrlrnsAASTDQLRLU5093-32-33 16:57:00 Test Item Value Reference Range Interpretation Comments Platelet (test code = Platelet) 271 133-450 [facility] UptownJtyxkmwKXEZJAUPJR2186-51-52 16:57:00 Test Item Value Reference Range Interpretation Comments WBC (test code = WBC) 7.3 3.7-10.4 [facility] UptownOucmjnsQBQAUGMBTV8918-55-63 16:57:00 Test Item Value Reference Range Interpretation Comments RBC (test code = RBC) 5.14 4.20-5.40 [facility] UptownFkhmlblWPINGIREAE3224-65-46 16:57:00 Test Item Value Reference Range Interpretation Comments MCV (test code = MCV) 77.9 80.0-98.0 [facility] UptownIpwjjepXRUKQPQIMW1680-91-98 16:57:00 Test Item Value Reference Range Interpretation Comments MCH (test code = MCH) 23.9 pg 27.0-31.0 [facility] UptownHytdkzdEPGTVSFAQV3894-02-78 16:57:00 Test Item Value Reference Range Interpretation Comments MCHC (test code = MCHC) 30.7 32.0-36.0 [facility] UptownAmgdkxwTOMCMBPECM8734-98-53 16:57:00 Test Item Value Reference Range Interpretation Comments Hct (test code = Hct) 40.1 36.0-48.0 [facility] UptownCwqtdryGJVCZPRMAE6636-66-43 16:57:00 Test Item Value Reference Range Interpretation Comments Hgb (test code = Hgb) 12.3 12.0-16.0 [facility] UptownJwyjshwSIXBXTDQXD3883-82-83 16:57:00 Test Item Value Reference Range Interpretation Comments Hct (test code = Hct) 40.1 36.0-48.0 [facility] UptownWlsaxlmPEQCIUZGGT2145-81-98 16:57:00 Test Item Value Reference Range Interpretation Comments Hgb (test code = Hgb) 12.3 12.0-16.0 [facility]2015-12-28 16:57:00 Test Item Value Reference Range Interpretation Comments eGFR (test code = eGFR) 86 [facility]2015-12-28 16:57:00 Test Item Value Reference Range Interpretation Comments Potassium Lvl (test code = Potassium 3.6 3.5-5.1 Lvl) [facility]2015-12-28 16:57:00 Test Item Value Reference Range Interpretation Comments CO2 (test code = CO2) 27 24-32 [facility]2015-12-28 16:57:00 Test Item Value Reference Range Interpretation Comments Chloride Lvl (test code = Chloride Lvl) 103 95-109 [facility]2015-12-28 16:57:00 Test Item Value Reference Range Interpretation Comments Calcium Lvl (test code = Calcium Lvl) 9.4 8.5-10.5 [facility]2015-12-28 16:57:00 Test Item Value Reference Range Interpretation Comments AST (test code = AST) 16 See_Comment [Auto mated message] The system which ge nerated this result transmit arvind reference range : <=37. The reference range was not used to interpr et this result as mario l/abnormal. [facility]2015-12-28 16:57:00 Test Item Value Reference Range Interpretation Comments ALT (test code = ALT) 43 See_Comment [Auto mated message] The system which ge nerated this result transmit arvind reference range : <=65. The reference range was not used to interpr et this result as mario l/abnormal. [facility]2015-12-28 16:57:00 Test Item Value Reference Range Interpretation Comments Alk Phos (test code = Alk Phos) 97 39-136 [facility]2015-12-28 16:57:00 Test Item Value Reference Range Interpretation Comments Albumin Lvl (test code = Albumin Lvl) 3.6 3.5-5.0 [facility]2015-12-28 16:57:00 Test Item Value Reference Range Interpretation Comments Total Protein (test code = Total 7.3 6.4-8.4 Protein) [facility]2015-12-28 16:57:00 Test Item Value Reference Range Interpretation Comments Bili Total (test code = Bili Total) 0.4 0.2-1.3 [facility]2015-12-28 16:57:00 Test Item Value Reference Range Interpretation Comments Glucose Lvl (test code = Glucose Lvl) 95 70-99 [facility]2015-12-28 16:57:00 Test Item Value Reference Range Interpretation Comments Creatinine Lvl (test code = Creatinine 0.93 0.50-1.40 Lvl) [facility]2015-12-28 16:57:00 Test Item Value Reference Range Interpretation Comments BUN (test code = BUN) 9 03-20 [facility]2015-12-28 16:57:00 Test Item Value Reference Range Interpretation Comments Sodium Lvl (test code = Sodium Lvl) 139 135-145 [facility]2015-12-28 16:57:00 Test Item Value Reference Range Interpretation Comments A/G Ratio (test code = A/G Ratio) 1.0 0.7-1.6 [facility]2015-12-28 16:57:00 Test Item Value Reference Range Interpretation Comments Globulin (test code = Globulin) 3.7 2.0-4.0 [facility]2015-12-28 16:57:00 Test Item Value Reference Range Interpretation Comments B/C Ratio (test code = B/C Ratio) 10 - [facility]2015-12-28 16:57:00 Test Item Value Reference Range Interpretation Comments AGAP (test code = AGAP) 12.6 10.0-20.0 [place] 39844015-12-28 16:57:00 Test Item Value Reference Range Interpretation Comments S Preg (test code = S Negative *NA*(08/26/15 Preg) 10:57 AM) [facility]ptownMcwjrogZMFTBWSVSF1492-80-25 16:57:00 Test Item Value Reference Range Interpretation Comments Eosinophils # (test code 0.4 See_Comment [A utomated message] The = Eosinophils #) system whic h generated this result tra nsmitted reference range : <=0.5. The reference r kat was not used to int erpret this result as normal/abnormal . [facility] UptownSgcdhtfYRQEPMTCNB4121-03-59 16:57:00 Test Item Value Reference Range Interpretation Comments Microcyte (test code = 1+ *ABN*(08/26/15 Microcyte) 10:57 AM) [facility] UptownTsdxnxiSDYYVPXJUP5497-69-81 16:57:00 Test Item Value Reference Range Interpretation Comments Basophils # (test code 0.1 See_Comment [Aut omated message] The = Basophils #) system which generated this result tra nsmitted reference range : <=0.2. The reference r kat was not used to int erpret this result as normal/abnormal . [facility] UptownNuudskxMSKVBURWJR1728-63-36 16:57:00 Test Item Value Reference Range Interpretation Comments Monocytes (test code = Monocytes) 8.6 2.0-12.0 [facility] UptownLlguizdNAQUMARNSZ9165-40-09 16:57:00 Test Item Value Reference Range Interpretation Comments Lymphocytes (test code = Lymphocytes) 40.6 20.0-40.0 [facility] UptownPkjetcdEGUFSFZBOT9869-05-38 16:57:00 Test Item Value Reference Range Interpretation Comments Eosinophils (test code = 5.0 See_Comment [A utomated message] The Eosinophils) system which ge nerated this result tra nsmitted reference range : <=4.0. The reference r kat was not used to int erpret this result as normal/abnormal . [facility] UptownJermqpmJEPPDWFBDF3226-80-05 16:57:00 Test Item Value Reference Range Interpretation Comments Segs (test code = Segs) 44.8 45.0-75.0 [facility] UptownGjeklwhTKFZBAXKKE5543-64-98 16:57:00 Test Item Value Reference Range Interpretation Comments Basophils (test code = 1.0 See_Comment [Aut omated message] The Basophils) system which ge nerated this result tra nsmitted reference range : <=1.0. The reference r kat was not used to int erpret this result as normal/abnormal . [facility] UptownOglzoetSKQVGKRSCE6510-22-66 16:57:00 Test Item Value Reference Range Interpretation Comments Segs-Bands # (test code = Segs-Bands #) 3.3 1.5-8.1 [facility] UptownSvbybxtHWMLHAOCSV9761-72-01 16:57:00 Test Item Value Reference Range Interpretation Comments Monocytes # (test code 0.6 See_Comment [Aut omated message] The = Monocytes #) system which generated this result tra nsmitted reference range : <=0.8. The reference r kat was not used to int erpret this result as normal/abnormal . [facility] UptownVdxvbzxQIFFNYLEVW3846-25-49 16:57:00 Test Item Value Reference Range Interpretation Comments Lymphocytes # (test code = Lymphocytes 3.0 1.0-5.5 #) [facility] UptownSkqnnjrTTBPUJEHES3498-67-61 16:57:00 Test Item Value Reference Range Interpretation Comments PT (test code = PT) 14.0 s 12.0-14.7 [facility] UptownBsjkznwTRBISQKCSG7300-30-73 16:57:00 Test Item Value Reference Range Interpretation Comments INR (test code = INR) 1.05 0.85-1.17 [facility] UptownMmrannxFMMTBALVCJ7101-65-93 16:57:00 Test Item Value Reference Range Interpretation Comments PTT (test code = PTT) 30.3 s 22.9-35.8 [facility] UptownBtudylrLAALSYYBTH0583-75-43 16:57:00 Test Item Value Reference Range Interpretation Comments MPV (test code = MPV) 8.9 7.4-10.4 [facility] UptownQotdzzlHZHYZVIXJC5455-87-15 16:57:00 Test Item Value Reference Range Interpretation Comments RDW (test code = RDW) 15.8 11.5-14.5 [facility] UptownEewtgyeOPIQUPEUHG4832-01-99 16:57:00 Test Item Value Reference Range Interpretation Comments Platelet (test code = Platelet) 271 133-450 [facility] UptownPffjddxNRXSYVGBPG5303-26-53 16:57:00 Test Item Value Reference Range Interpretation Comments WBC (test code = WBC) 7.3 3.7-10.4 [facility] UptownSeimqcaZWXVYZMIFW1356-55-24 16:57:00 Test Item Value Reference Range Interpretation Comments RBC (test code = RBC) 5.14 4.20-5.40 [facility] UptownRedmbugQFCQFYOGUV9836-28-29 16:57:00 Test Item Value Reference Range Interpretation Comments MCV (test code = MCV) 77.9 80.0-98.0 [facility] UptownHoiiiixOFREOUHHGD8308-13-89 16:57:00 Test Item Value Reference Range Interpretation Comments MCH (test code = MCH) 23.9 pg 27.0-31.0 [facility] UptownBxmluywSAYRLYRNET7352-69-46 16:57:00 Test Item Value Reference Range Interpretation Comments MCHC (test code = MCHC) 30.7 32.0-36.0 [facility] UptownPdvaobqIUWJJAMKIB8144-39-30 16:57:00 Test Item Value Reference Range Interpretation Comments Hct (test code = Hct) 40.1 36.0-48.0 [facility] UptownBwohvxhMRVIBKCGNN7673-30-87 16:57:00 Test Item Value Reference Range Interpretation Comments Hgb (test code = Hgb) 12.3 12.0-16.0 [facility]2015-12-28 16:57:00 Test Item Value Reference Range Interpretation Comments eGFR (test code = eGFR) 86 [facility]2015-12-28 16:57:00 Test Item Value Reference Range Interpretation Comments Potassium Lvl (test code = Potassium 3.6 3.5-5.1 Lvl) [facility]2015-12-28 16:57:00 Test Item Value Reference Range Interpretation Comments CO2 (test code = CO2) 27 24-32 [facility]2015-12-28 16:57:00 Test Item Value Reference Range Interpretation Comments Chloride Lvl (test code = Chloride Lvl) 103 95-109 [facility]2015-12-28 16:57:00 Test Item Value Reference Range Interpretation Comments Calcium Lvl (test code = Calcium Lvl) 9.4 8.5-10.5 [facility]2015-12-28 16:57:00 Test Item Value Reference Range Interpretation Comments AST (test code = AST) 16 See_Comment [Auto mated message] The system which ge nerated this result transmit arvind reference range : <=37. The reference range was not used to interpr et this result as mario l/abnormal. [facility]2015-12-28 16:57:00 Test Item Value Reference Range Interpretation Comments ALT (test code = ALT) 43 See_Comment [Auto mated message] The system which ge nerated this result transmit arvind reference range : <=65. The reference range was not used to interpr et this result as mario l/abnormal. [facility]2015-12-28 16:57:00 Test Item Value Reference Range Interpretation Comments Alk Phos (test code = Alk Phos) 97 39-136 [facility]2015-12-28 16:57:00 Test Item Value Reference Range Interpretation Comments Albumin Lvl (test code = Albumin Lvl) 3.6 3.5-5.0 [facility]2015-12-28 16:57:00 Test Item Value Reference Range Interpretation Comments Total Protein (test code = Total 7.3 6.4-8.4 Protein) [facility]2015-12-28 16:57:00 Test Item Value Reference Range Interpretation Comments Bili Total (test code = Bili Total) 0.4 0.2-1.3 [facility]2015-12-28 16:57:00 Test Item Value Reference Range Interpretation Comments Glucose Lvl (test code = Glucose Lvl) 95 70-99 [facility]2015-12-28 16:57:00 Test Item Value Reference Range Interpretation Comments Creatinine Lvl (test code = Creatinine 0.93 0.50-1.40 Lvl) [facility]2015-12-28 16:57:00 Test Item Value Reference Range Interpretation Comments BUN (test code = BUN) 9 7-22 [facility]2015-12-28 16:57:00 Test Item Value Reference Range Interpretation Comments Sodium Lvl (test code = Sodium Lvl) 139 135-145 [facility]2015-12-28 16:57:00 Test Item Value Reference Range Interpretation Comments A/G Ratio (test code = A/G Ratio) 1.0 0.7-1.6 [facility]2015-12-28 16:57:00 Test Item Value Reference Range Interpretation Comments Globulin (test code = Globulin) 3.7 2.0-4.0 [facility]2015-12-28 16:57:00 Test Item Value Reference Range Interpretation Comments B/C Ratio (test code = B/C Ratio) 10 6-25 [facility]2015-12-28 16:57:00 Test Item Value Reference Range Interpretation Comments AGAP (test code = AGAP) 12.6 10.0-20.0 [facility] IrvingDymqaydBFSRZNDHIFMBA1292-50-70 16:57:00 Test Item Value Reference Range Interpretation Comments S Preg (test code = S Negative *NA*(08/26/15 Preg) 10:57 AM) [facility] UptownLbipaexXYXYMXVWHL4446-31-79 16:57:00 Test Item Value Reference Range Interpretation Comments Eosinophils # (test code 0.4 See_Comment [A utomated message] The = Eosinophils #) system whic h generated this result tra nsmitted reference range : <=0.5. The reference r kat was not used to int erpret this result as normal/abnormal . [facility]XblzfqgIUGBWZMDTM9567-43-09 16:57:00 Test Item Value Reference Range Interpretation Comments Microcyte (test code = 1+ *ABN*(08/26/15 Microcyte) 10:57 AM) [facility]ownCehywmiVMPGJDLRNV7345-34-91 16:57:00 Test Item Value Reference Range Interpretation Comments Basophils # (test code 0.1 See_Comment [Aut omated message] The = Basophils #) system which generated this result tra nsmitted reference range : <=0.2. The reference r kat was not used to int erpret this result as normal/abnormal . [facility]ownXhczutzWLSQIMGGMT1016-16-57 16:57:00 Test Item Value Reference Range Interpretation Comments Monocytes (test code = Monocytes) 8.6 2.0-12.0 [facility]ownZikqetqXHHEHBVLHT4920-03-58 16:57:00 Test Item Value Reference Range Interpretation Comments Lymphocytes (test code = Lymphocytes) 40.6 20.0-40.0 [facility]ptownNhooyjtGLRMIVBYQR4684-65-63 16:57:00 Test Item Value Reference Range Interpretation Comments Eosinophils (test code = 5.0 See_Comment [A utomated message] The Eosinophils) system which ge nerated this result tra nsmitted reference range : <=4.0. The reference r kat was not used to int erpret this result as normal/abnormal . [facility]ownUqcrwwoPNXXAWNDJE5886-68-34 16:57:00 Test Item Value Reference Range Interpretation Comments Segs (test code = Segs) 44.8 45.0-75.0 [facility]ownEmdlvpwWKTSJMMNOV4825-56-60 16:57:00 Test Item Value Reference Range Interpretation Comments Basophils (test code = 1.0 See_Comment [Aut omated message] The Basophils) system which ge nerated this result tra nsmitted reference range : <=1.0. The reference r kat was not used to int erpret this result as normal/abnormal . [facility]ownZttyshjOCTDGLUAOF3524-96-65 16:57:00 Test Item Value Reference Range Interpretation Comments Segs-Bands # (test code = Segs-Bands #) 3.3 1.5-8.1 [facility]ownYqhcypfESMZSUGMEL2386-67-23 16:57:00 Test Item Value Reference Range Interpretation Comments Monocytes # (test code 0.6 See_Comment [Aut omated message] The = Monocytes #) system which generated this result tra nsmitted reference range : <=0.8. The reference r kat was not used to int erpret this result as normal/abnormal . [facility]ownHfgkmkjGWJKGUOMJH7019-94-78 16:57:00 Test Item Value Reference Range Interpretation Comments Lymphocytes # (test code = Lymphocytes 3.0 1.0-5.5 #) [facility]ownZbjhgbvYITKCGTSIN2624-92-54 16:57:00 Test Item Value Reference Range Interpretation Comments PT (test code = PT) 14.0 s 12.0-14.7 [facility]ownEyxskuhEOSDVIZRAA9776-25-75 16:57:00 Test Item Value Reference Range Interpretation Comments INR (test code = INR) 1.05 0.85-1.17 [facility]ptownTgdiidpSWVLJWJKLG4360-41-03 16:57:00 Test Item Value Reference Range Interpretation Comments PTT (test code = PTT) 30.3 s 22.9-35.8 [facility] UptownEtdrylwLUQNSGLLCF1085-96-80 16:57:00 Test Item Value Reference Range Interpretation Comments MPV (test code = MPV) 8.9 7.4-10.4 [facility] UptownVskudoaVBVHYMTDQT0544-88-65 16:57:00 Test Item Value Reference Range Interpretation Comments RDW (test code = RDW) 15.8 11.5-14.5 [facility]ptownQpfruyeXZXZBPFLMO2233-02-30 16:57:00 Test Item Value Reference Range Interpretation Comments Platelet (test code = Platelet) 271 133-450 [facility] UptownBlaabdzFVCWQNQTPH9537-70-23 16:57:00 Test Item Value Reference Range Interpretation Comments WBC (test code = WBC) 7.3 3.7-10.4 [facility] UptownDpqvgntQHYDXMEOGO6852-31-50 16:57:00 Test Item Value Reference Range Interpretation Comments RBC (test code = RBC) 5.14 4.20-5.40 [facility] UptownBbkynayIVHYWGBFJF7035-92-96 16:57:00 Test Item Value Reference Range Interpretation Comments MCV (test code = MCV) 77.9 80.0-98.0 [facility]ptownBmeejcbSNAJQSMQHU0864-37-07 16:57:00 Test Item Value Reference Range Interpretation Comments MCH (test code = MCH) 23.9 pg 27.0-31.0 [facility]ptownZlqgwbfTDLWQLOZYG6870-76-69 16:57:00 Test Item Value Reference Range Interpretation Comments MCHC (test code = MCHC) 30.7 32.0-36.0 [facility]ptownTevwxzxHFROEEOCQI3307-58-64 16:57:00 Test Item Value Reference Range Interpretation Comments Hct (test code = Hct) 40.1 36.0-48.0 [facility]ptownVzyknblBVSOZRFCWW9106-26-76 16:57:00 Test Item Value Reference Range Interpretation Comments Hgb (test code = Hgb) 12.3 12.0-16.0 [facility]2015-12-28 16:57:00 Test Item Value Reference Range Interpretation Comments eGFR (test code = eGFR) 86 [facility]2015-12-28 16:57:00 Test Item Value Reference Range Interpretation Comments Potassium Lvl (test code = Potassium 3.6 3.5-5.1 Lvl) [facility]2015-12-28 16:57:00 Test Item Value Reference Range Interpretation Comments CO2 (test code = CO2) 27 24-32 [facility]2015-12-28 16:57:00 Test Item Value Reference Range Interpretation Comments Chloride Lvl (test code = Chloride Lvl) 103 95-109 [facility]2015-12-28 16:57:00 Test Item Value Reference Range Interpretation Comments Calcium Lvl (test code = Calcium Lvl) 9.4 8.5-10.5 [facility]2015-12-28 16:57:00 Test Item Value Reference Range Interpretation Comments AST (test code = AST) 16 See_Comment [Auto mated message] The system which ge nerated this result transmit arvind reference range : <=37. The reference range was not used to interpr et this result as mario l/abnormal. [facility]2015-12-28 16:57:00 Test Item Value Reference Range Interpretation Comments ALT (test code = ALT) 43 See_Comment [Auto mated message] The system which ge nerated this result transmit arvind reference range : <=65. The reference range was not used to interpr et this result as mario l/abnormal. [facility]2015-12-28 16:57:00 Test Item Value Reference Range Interpretation Comments Alk Phos (test code = Alk Phos) 97 39-136 [facility]2015-12-28 16:57:00 Test Item Value Reference Range Interpretation Comments Albumin Lvl (test code = Albumin Lvl) 3.6 3.5-5.0 [facility]2015-12-28 16:57:00 Test Item Value Reference Range Interpretation Comments Total Protein (test code = Total 7.3 6.4-8.4 Protein) [facility]2015-12-28 16:57:00 Test Item Value Reference Range Interpretation Comments Bili Total (test code = Bili Total) 0.4 0.2-1.3 [facility]2015-12-28 16:57:00 Test Item Value Reference Range Interpretation Comments Glucose Lvl (test code = Glucose Lvl) 95 70-99 [facility]2015-12-28 16:57:00 Test Item Value Reference Range Interpretation Comments Creatinine Lvl (test code = Creatinine 0.93 0.50-1.40 Lvl) [facility]2015-12-28 16:57:00 Test Item Value Reference Range Interpretation Comments BUN (test code = BUN) 9 7-22 [facility]2015-12-28 16:57:00 Test Item Value Reference Range Interpretation Comments Sodium Lvl (test code = Sodium Lvl) 139 135-145 [facility]2015-12-28 16:57:00 Test Item Value Reference Range Interpretation Comments A/G Ratio (test code = A/G Ratio) 1.0 0.7-1.6 [place] 203065-12-28 16:57:00 Test Item Value Reference Range Interpretation Comments Globulin (test code = Globulin) 3.7 2.0-4.0 [facility]2015-12-28 16:57:00 Test Item Value Reference Range Interpretation Comments B/C Ratio (test code = B/C Ratio) 10 6-25 [facility]2015-12-28 16:57:00 Test Item Value Reference Range Interpretation Comments AGAP (test code = AGAP) 12.6 10.0-20.0 [facility]AlcafjlRIVCWJXFWRSMT5900-00-04 16:57:00 Test Item Value Reference Range Interpretation Comments S Preg (test code = S Negative *NA*(08/26/15 Preg) 10:57 AM) [facility]ownEmqjptbZGGBSPLTEY0057-16-17 16:57:00 Test Item Value Reference Range Interpretation Comments Eosinophils # (test code 0.4 See_Comment [A utomated message] The = Eosinophils #) system whic h generated this result tra nsmitted reference range : <=0.5. The reference r kat was not used to int erpret this result as normal/abnormal . [facility]ownJmtgbfkSCRERQABYQ5381-83-92 16:57:00 Test Item Value Reference Range Interpretation Comments Microcyte (test code = 1+ *ABN*(08/26/15 Microcyte) 10:57 AM) [facility]ownZfvengxYKSFEBXPHV0443-80-34 16:57:00 Test Item Value Reference Range Interpretation Comments Basophils # (test code 0.1 See_Comment [Aut omated message] The = Basophils #) system which generated this result tra nsmitted reference range : <=0.2. The reference r kat was not used to int erpret this result as normal/abnormal . [facility]ownTaekzgeSBUNQDZIVB5212-37-67 16:57:00 Test Item Value Reference Range Interpretation Comments Monocytes (test code = Monocytes) 8.6 2.0-12.0 [facility]ptownFgzlaeeCPAVICLFVD2612-14-05 16:57:00 Test Item Value Reference Range Interpretation Comments Lymphocytes (test code = Lymphocytes) 40.6 20.0-40.0 [facility]ptownYmcyzxtABDRCRPCLL5088-01-51 16:57:00 Test Item Value Reference Range Interpretation Comments Eosinophils (test code = 5.0 See_Comment [A utomated message] The Eosinophils) system which ge nerated this result tra nsmitted reference range : <=4.0. The reference r kat was not used to int erpret this result as normal/abnormal . [facility]ownYdjkrdfYFXAXSYXZB0809-47-76 16:57:00 Test Item Value Reference Range Interpretation Comments Segs (test code = Segs) 44.8 45.0-75.0 [facility]ptownZvpgqhkOZLTLJTYOE4647-37-01 16:57:00 Test Item Value Reference Range Interpretation Comments Basophils (test code = 1.0 See_Comment [Aut omated message] The Basophils) system which ge nerated this result tra nsmitted reference range : <=1.0. The reference r kat was not used to int erpret this result as normal/abnormal . [facility] UptownZndodqcDKPEWJIULY8408-41-67 16:57:00 Test Item Value Reference Range Interpretation Comments Segs-Bands # (test code = Segs-Bands #) 3.3 1.5-8.1 [facility]ptownJbenplqFJSRHJRLFY3764-98-43 16:57:00 Test Item Value Reference Range Interpretation Comments Monocytes # (test code 0.6 See_Comment [Aut omated message] The = Monocytes #) system which generated this result tra nsmitted reference range : <=0.8. The reference r kat was not used to int erpret this result as normal/abnormal . [facility]ptownKizcdwsRLUBTKSVAU0185-10-43 16:57:00 Test Item Value Reference Range Interpretation Comments Lymphocytes # (test code = Lymphocytes 3.0 1.0-5.5 #) [facility]ptownGkelypsGQAGKXMIAD9154-40-31 16:57:00 Test Item Value Reference Range Interpretation Comments PT (test code = PT) 14.0 s 12.0-14.7 [facility]ptownDhsgltcEKXCIUOJVK0083-88-75 16:57:00 Test Item Value Reference Range Interpretation Comments INR (test code = INR) 1.05 0.85-1.17 [facility]ptownAdpnfyiFAMUWEJYWY0230-02-88 16:57:00 Test Item Value Reference Range Interpretation Comments PTT (test code = PTT) 30.3 s 22.9-35.8 [facility] UptownNdkjnimJWRZEWLPKV5571-75-60 16:57:00 Test Item Value Reference Range Interpretation Comments MPV (test code = MPV) 8.9 7.4-10.4 [facility] UptownYdxoubdUZLTWVFPFE3833-62-17 16:57:00 Test Item Value Reference Range Interpretation Comments RDW (test code = RDW) 15.8 11.5-14.5 [facility] UptownOtittpfBLVOCLOVXY5468-88-77 16:57:00 Test Item Value Reference Range Interpretation Comments Platelet (test code = Platelet) 271 133-450 [facility] UptownJhmrwdsYIXVGYLEXK9536-67-07 16:57:00 Test Item Value Reference Range Interpretation Comments WBC (test code = WBC) 7.3 3.7-10.4 [facility] UptownDnuymsfFZEPYHMEIY5108-42-87 16:57:00 Test Item Value Reference Range Interpretation Comments RBC (test code = RBC) 5.14 4.20-5.40 [facility] UptownSlzcrmcGNAZWETZQE9844-67-61 16:57:00 Test Item Value Reference Range Interpretation Comments MCV (test code = MCV) 77.9 80.0-98.0 [facility]ptownGojeuyyQAEWVSSHLS0057-34-05 16:57:00 Test Item Value Reference Range Interpretation Comments MCH (test code = MCH) 23.9 pg 27.0-31.0 [facility]ptownSomutgxYKSJVRRXMH9447-25-03 16:57:00 Test Item Value Reference Range Interpretation Comments MCHC (test code = MCHC) 30.7 32.0-36.0 [facility]ptownTpkdthfJGMXFNFUHD5292-69-18 16:57:00 Test Item Value Reference Range Interpretation Comments Hct (test code = Hct) 40.1 36.0-48.0 [facility]ptownNlywadwXGGNNJGVCN7392-11-13 16:57:00 Test Item Value Reference Range Interpretation Comments Hgb (test code = Hgb) 12.3 12.0-16.0 [facility]2015-12-28 16:57:00 Test Item Value Reference Range Interpretation Comments eGFR (test code = eGFR) 86 [facility]2015-12-28 16:57:00 Test Item Value Reference Range Interpretation Comments Potassium Lvl (test code = Potassium 3.6 3.5-5.1 Lvl) [facility]2015-12-28 16:57:00 Test Item Value Reference Range Interpretation Comments CO2 (test code = CO2) 27 24-32 [facility]2015-12-28 16:57:00 Test Item Value Reference Range Interpretation Comments Chloride Lvl (test code = Chloride Lvl) 103 95-109 [facility]2015-12-28 16:57:00 Test Item Value Reference Range Interpretation Comments Calcium Lvl (test code = Calcium Lvl) 9.4 8.5-10.5 [facility]2015-12-28 16:57:00 Test Item Value Reference Range Interpretation Comments AST (test code = AST) 16 See_Comment [Auto mated message] The system which ge nerated this result transmit arvind reference range : <=37. The reference range was not used to interpr et this result as mario l/abnormal. [facility]2015-12-28 16:57:00 Test Item Value Reference Range Interpretation Comments ALT (test code = ALT) 43 See_Comment [Auto mated message] The system which ge nerated this result transmit arvind reference range : <=65. The reference range was not used to interpr et this result as mario l/abnormal. [facility]2015-12-28 16:57:00 Test Item Value Reference Range Interpretation Comments Alk Phos (test code = Alk Phos) 97 39-136 [facility]2015-12-28 16:57:00 Test Item Value Reference Range Interpretation Comments Albumin Lvl (test code = Albumin Lvl) 3.6 3.5-5.0 [facility]2015-12-28 16:57:00 Test Item Value Reference Range Interpretation Comments Total Protein (test code = Total 7.3 6.4-8.4 Protein) [facility]2015-12-28 16:57:00 Test Item Value Reference Range Interpretation Comments Bili Total (test code = Bili Total) 0.4 0.2-1.3 [facility]2015-12-28 16:57:00 Test Item Value Reference Range Interpretation Comments Glucose Lvl (test code = Glucose Lvl) 95 70-99 [facility]2015-12-28 16:57:00 Test Item Value Reference Range Interpretation Comments Creatinine Lvl (test code = Creatinine 0.93 0.50-1.40 Lvl) [facility]2015-12-28 16:57:00 Test Item Value Reference Range Interpretation Comments BUN (test code = BUN) 9 7-22 [facility]2015-12-28 16:57:00 Test Item Value Reference Range Interpretation Comments Sodium Lvl (test code = Sodium Lvl) 139 135-145 [place] 203065-12-28 16:57:00 Test Item Value Reference Range Interpretation Comments A/G Ratio (test code = A/G Ratio) 1.0 0.7-1.6 [facility]2015-12-28 16:57:00 Test Item Value Reference Range Interpretation Comments Globulin (test code = Globulin) 3.7 2.0-4.0 [facility]2015-12-28 16:57:00 Test Item Value Reference Range Interpretation Comments B/C Ratio (test code = B/C Ratio) 10 6-25 [facility]2015-12-28 16:57:00 Test Item Value Reference Range Interpretation Comments AGAP (test code = AGAP) 12.6 10.0-20.0 [place] 39844015-12-28 16:57:00 Test Item Value Reference Range Interpretation Comments S Preg (test code = S Negative *NA*(08/26/15 Preg) 10:57 AM) [facility]ptownEftleexGVTHYJYQDO1550-96-54 16:57:00 Test Item Value Reference Range Interpretation Comments Eosinophils # (test code 0.4 See_Comment [A utomated message] The = Eosinophils #) system whic h generated this result tra nsmitted reference range : <=0.5. The reference r kat was not used to int erpret this result as normal/abnormal . [facility]ptownLmurkgdOVVMEGKWVC4367-08-19 16:57:00 Test Item Value Reference Range Interpretation Comments Microcyte (test code = 1+ *ABN*(08/26/15 Microcyte) 10:57 AM) [facility]ownSbqdmxpTNGPEXNBVX2395-00-20 16:57:00 Test Item Value Reference Range Interpretation Comments Basophils # (test code 0.1 See_Comment [Aut omated message] The = Basophils #) system which generated this result tra nsmitted reference range : <=0.2. The reference r kat was not used to int erpret this result as normal/abnormal . [facility]ptownSqdjridCCCMHBPGZD7138-93-27 16:57:00 Test Item Value Reference Range Interpretation Comments Monocytes (test code = Monocytes) 8.6 2.0-12.0 [facility] UptownXmqskcmNVCKFEJTHK9891-26-23 16:57:00 Test Item Value Reference Range Interpretation Comments Lymphocytes (test code = Lymphocytes) 40.6 20.0-40.0 [facility]ptownTxridinYGLDZRZSCV2337-02-17 16:57:00 Test Item Value Reference Range Interpretation Comments Eosinophils (test code = 5.0 See_Comment [A utomated message] The Eosinophils) system which ge nerated this result tra nsmitted reference range : <=4.0. The reference r kat was not used to int erpret this result as normal/abnormal . [facility] UptownGtkxmgwAZETOMIHKO2983-45-32 16:57:00 Test Item Value Reference Range Interpretation Comments Segs (test code = Segs) 44.8 45.0-75.0 [facility] UptownIwtstjgCFNNAFCIOL9484-82-75 16:57:00 Test Item Value Reference Range Interpretation Comments Basophils (test code = 1.0 See_Comment [Aut omated message] The Basophils) system which ge nerated this result tra nsmitted reference range : <=1.0. The reference r kat was not used to int erpret this result as normal/abnormal . [facility] UptownLmulmndASWKXKGYZR6999-82-59 16:57:00 Test Item Value Reference Range Interpretation Comments Segs-Bands # (test code = Segs-Bands #) 3.3 1.5-8.1 [facility] UptownTzbmwxbWMCFJPBUNX8966-92-38 16:57:00 Test Item Value Reference Range Interpretation Comments Monocytes # (test code 0.6 See_Comment [Aut omated message] The = Monocytes #) system which generated this result tra nsmitted reference range : <=0.8. The reference r kat was not used to int erpret this result as normal/abnormal . [facility]ptownOrzkdqcKRPWSEZUCQ3478-39-80 16:57:00 Test Item Value Reference Range Interpretation Comments Lymphocytes # (test code = Lymphocytes 3.0 1.0-5.5 #) [facility] UptownLvzstvfONCYFPTYSO8434-69-17 16:57:00 Test Item Value Reference Range Interpretation Comments PT (test code = PT) 14.0 s 12.0-14.7 [facility]ptownMwyybhvTBQZYULNMJ2091-25-29 16:57:00 Test Item Value Reference Range Interpretation Comments INR (test code = INR) 1.05 0.85-1.17 [facility] UptownLfiuyfuJGYHDXEFNC9910-55-88 16:57:00 Test Item Value Reference Range Interpretation Comments PTT (test code = PTT) 30.3 s 22.9-35.8 [facility]ptownMcmodmxQGMFYJKPSD0232-45-64 16:57:00 Test Item Value Reference Range Interpretation Comments MPV (test code = MPV) 8.9 7.4-10.4 [place] 733975-12-28 16:57:00 Test Item Value Reference Range Interpretation Comments RDW (test code = RDW) 15.8 11.5-14.5 [facility]ptownSaawdnpKOKHEDMVUE9503-56-04 16:57:00 Test Item Value Reference Range Interpretation Comments Platelet (test code = Platelet) 271 133-450 [facility] UptownDgdovpuATQDNIASOI9551-05-58 16:57:00 Test Item Value Reference Range Interpretation Comments WBC (test code = WBC) 7.3 3.7-10.4 [facility] UptownLnzikohJNLXGXHXXI1529-51-02 16:57:00 Test Item Value Reference Range Interpretation Comments RBC (test code = RBC) 5.14 4.20-5.40 [place] 733975-12-28 16:57:00 Test Item Value Reference Range Interpretation Comments MCV (test code = MCV) 77.9 80.0-98.0 [facility]ptownDwkjwjwQCTVLDGPWN6726-57-37 16:57:00 Test Item Value Reference Range Interpretation Comments MCH (test code = MCH) 23.9 pg 27.0-31.0 [facility] UptownOovtixhSDXRDXKHQE7070-88-49 16:57:00 Test Item Value Reference Range Interpretation Comments MCHC (test code = MCHC) 30.7 32.0-36.0 [facility] UptownMwgcfuvEOELQVVIRT9280-48-44 16:57:00 Test Item Value Reference Range Interpretation Comments Hct (test code = Hct) 40.1 36.0-48.0 [facility] UptownEaleuqdWAQDSMPLKR2827-44-23 16:57:00 Test Item Value Reference Range Interpretation Comments Hgb (test code = Hgb) 12.3 12.0-16.0 [facility]2015-12-28 16:57:00 Test Item Value Reference Range Interpretation Comments eGFR (test code = eGFR) 86 [facility]2015-12-28 16:57:00 Test Item Value Reference Range Interpretation Comments Potassium Lvl (test code = Potassium 3.6 3.5-5.1 Lvl) [facility]2015-12-28 16:57:00 Test Item Value Reference Range Interpretation Comments CO2 (test code = CO2) 27 24-32 [facility]2015-12-28 16:57:00 Test Item Value Reference Range Interpretation Comments Chloride Lvl (test code = Chloride Lvl) 103 95-109 [facility]2015-12-28 16:57:00 Test Item Value Reference Range Interpretation Comments Calcium Lvl (test code = Calcium Lvl) 9.4 8.5-10.5 [facility]2015-12-28 16:57:00 Test Item Value Reference Range Interpretation Comments AST (test code = AST) 16 See_Comment [Auto mated message] The system which ge nerated this result transmit arvind reference range : <=37. The reference range was not used to interpr et this result as mario l/abnormal. [facility]2015-12-28 16:57:00 Test Item Value Reference Range Interpretation Comments ALT (test code = ALT) 43 See_Comment [Auto mated message] The system which ge nerated this result transmit arvind reference range : <=65. The reference range was not used to interpr et this result as mario l/abnormal. [facility]2015-12-28 16:57:00 Test Item Value Reference Range Interpretation Comments Alk Phos (test code = Alk Phos) 97 39-136 [facility]2015-12-28 16:57:00 Test Item Value Reference Range Interpretation Comments Albumin Lvl (test code = Albumin Lvl) 3.6 3.5-5.0 [facility]2015-12-28 16:57:00 Test Item Value Reference Range Interpretation Comments Total Protein (test code = Total 7.3 6.4-8.4 Protein) [facility]2015-12-28 16:57:00 Test Item Value Reference Range Interpretation Comments Bili Total (test code = Bili Total) 0.4 0.2-1.3 [facility]2015-12-28 16:57:00 Test Item Value Reference Range Interpretation Comments Glucose Lvl (test code = Glucose Lvl) 95 70-99 [facility]2015-12-28 16:57:00 Test Item Value Reference Range Interpretation Comments Creatinine Lvl (test code = Creatinine 0.93 0.50-1.40 Lvl) [place] 203065-12-28 16:57:00 Test Item Value Reference Range Interpretation Comments BUN (test code = BUN) 9 7- [facility]2015-12-28 16:57:00 Test Item Value Reference Range Interpretation Comments Sodium Lvl (test code = Sodium Lvl) 139 135-145 [facility]2015-12-28 16:57:00 Test Item Value Reference Range Interpretation Comments A/G Ratio (test code = A/G Ratio) 1.0 0.7-1.6 [facility]2015-12-28 16:57:00 Test Item Value Reference Range Interpretation Comments Globulin (test code = Globulin) 3.7 2.0-4.0 [facility]2015-12-28 16:57:00 Test Item Value Reference Range Interpretation Comments B/C Ratio (test code = B/C Ratio) 10 - [facility]2015-12-28 16:57:00 Test Item Value Reference Range Interpretation Comments AGAP (test code = AGAP) 12.6 10.0-20.0 [place] 39844015-12-28 16:57:00 Test Item Value Reference Range Interpretation Comments S Preg (test code = S Negative *NA*(08/26/15 Preg) 10:57 AM) [facility]wscjzvKKESBRIWGY9392-50-82 16:57:00 Test Item Value Reference Range Interpretation Comments Eosinophils # (test code 0.4 See_Comment [A utomated message] The = Eosinophils #) system whic h generated this result tra nsmitted reference range : <=0.5. The reference r kat was not used to int erpret this result as normal/abnormal . [facility]ownTkmtaddZJLCPPUQDY7908-04-41 16:57:00 Test Item Value Reference Range Interpretation Comments Microcyte (test code = 1+ *ABN*(08/26/15 Microcyte) 10:57 AM) [facility]ptownSqaiwcrWKOGKWLIMV0327-50-55 16:57:00 Test Item Value Reference Range Interpretation Comments Basophils # (test code 0.1 See_Comment [Aut omated message] The = Basophils #) system which generated this result tra nsmitted reference range : <=0.2. The reference r kat was not used to int erpret this result as normal/abnormal . [facility]ptownSnfdtdpTJLTRZSDVV1173-98-59 16:57:00 Test Item Value Reference Range Interpretation Comments Monocytes (test code = Monocytes) 8.6 2.0-12.0 [facility] UptownNjdeksqSSAPPMPEUO1028-73-82 16:57:00 Test Item Value Reference Range Interpretation Comments Lymphocytes (test code = Lymphocytes) 40.6 20.0-40.0 [facility] UptownJeefctaQNIAMWZWPN1223-67-53 16:57:00 Test Item Value Reference Range Interpretation Comments Eosinophils (test code = 5.0 See_Comment [A utomated message] The Eosinophils) system which ge nerated this result tra nsmitted reference range : <=4.0. The reference r kat was not used to int erpret this result as normal/abnormal . [facility] UptownKytsnihXJTTEGIYHS2452-29-03 16:57:00 Test Item Value Reference Range Interpretation Comments Segs (test code = Segs) 44.8 45.0-75.0 [facility] UptownSpuivxvOFZEOHGKMQ7568-44-11 16:57:00 Test Item Value Reference Range Interpretation Comments Basophils (test code = 1.0 See_Comment [Aut omated message] The Basophils) system which ge nerated this result tra nsmitted reference range : <=1.0. The reference r kat was not used to int erpret this result as normal/abnormal . [facility] UptownUumuxapORVQTRGLJY4747-48-15 16:57:00 Test Item Value Reference Range Interpretation Comments Segs-Bands # (test code = Segs-Bands #) 3.3 1.5-8.1 [facility] UptownUzgcjjjHOFFKVGBWP5435-26-60 16:57:00 Test Item Value Reference Range Interpretation Comments Monocytes # (test code 0.6 See_Comment [Aut omated message] The = Monocytes #) system which generated this result tra nsmitted reference range : <=0.8. The reference r kat was not used to int erpret this result as normal/abnormal . [facility] UptownObbnezbMHVYRFGOVC4625-14-41 16:57:00 Test Item Value Reference Range Interpretation Comments Lymphocytes # (test code = Lymphocytes 3.0 1.0-5.5 #) [facility] UptownBpjgjjfHMYMENBXWG3613-58-32 16:57:00 Test Item Value Reference Range Interpretation Comments PT (test code = PT) 14.0 s 12.0-14.7 [place] 733975-12-28 16:57:00 Test Item Value Reference Range Interpretation Comments INR (test code = INR) 1.05 0.85-1.17 [facility] UptownRepfltgWWYMASYXXX9610-51-51 16:57:00 Test Item Value Reference Range Interpretation Comments PTT (test code = PTT) 30.3 s 22.9-35.8 [facility] UptownRjngiscXIILVFFATA8851-53-85 16:57:00 Test Item Value Reference Range Interpretation Comments MPV (test code = MPV) 8.9 7.4-10.4 [place] 733975-12-28 16:57:00 Test Item Value Reference Range Interpretation Comments RDW (test code = RDW) 15.8 11.5-14.5 [facility] UptownPsmdrzsOMFWAJKTEN5306-29-26 16:57:00 Test Item Value Reference Range Interpretation Comments Platelet (test code = Platelet) 271 133-450 [facility] UptownVdmlftvHOHXGFXHPJ8987-89-07 16:57:00 Test Item Value Reference Range Interpretation Comments WBC (test code = WBC) 7.3 3.7-10.4 [facility] UptownIrtfqzxMLZFVTIGCH3830-60-78 16:57:00 Test Item Value Reference Range Interpretation Comments RBC (test code = RBC) 5.14 4.20-5.40 [facility] UptownJjoeskpKEUAGEKROI8784-61-74 16:57:00 Test Item Value Reference Range Interpretation Comments MCV (test code = MCV) 77.9 80.0-98.0 [facility] UptownRkhqyaeNCMZROVHBN2545-95-42 16:57:00 Test Item Value Reference Range Interpretation Comments MCH (test code = MCH) 23.9 pg 27.0-31.0 [facility] UptownBaazimwEYRRUZIPHV3852-50-09 16:57:00 Test Item Value Reference Range Interpretation Comments MCHC (test code = MCHC) 30.7 32.0-36.0 [facility] UptownHxjjvdfJTUZEFIQMS3902-56-05 16:57:00 Test Item Value Reference Range Interpretation Comments Hct (test code = Hct) 40.1 36.0-48.0 [facility] UptownPjxlhvrSHUDGQRLCJ0505-64-72 16:57:00 Test Item Value Reference Range Interpretation Comments Hgb (test code = Hgb) 12.3 12.0-16.0 [facility]2015-12-28 16:57:00 Test Item Value Reference Range Interpretation Comments eGFR (test code = eGFR) 86 [facility]2015-12-28 16:57:00 Test Item Value Reference Range Interpretation Comments Potassium Lvl (test code = Potassium 3.6 3.5-5.1 Lvl) [facility]2015-12-28 16:57:00 Test Item Value Reference Range Interpretation Comments CO2 (test code = CO2) 27 24-32 [facility]2015-12-28 16:57:00 Test Item Value Reference Range Interpretation Comments Chloride Lvl (test code = Chloride Lvl) 103 95-109 [facility]2015-12-28 16:57:00 Test Item Value Reference Range Interpretation Comments Calcium Lvl (test code = Calcium Lvl) 9.4 8.5-10.5 [facility]2015-12-28 16:57:00 Test Item Value Reference Range Interpretation Comments AST (test code = AST) 16 See_Comment [Auto mated message] The system which ge nerated this result transmit arvind reference range : <=37. The reference range was not used to interpr et this result as mario l/abnormal. [facility]2015-12-28 16:57:00 Test Item Value Reference Range Interpretation Comments ALT (test code = ALT) 43 See_Comment [Auto mated message] The system which ge nerated this result transmit arvind reference range : <=65. The reference range was not used to interpr et this result as mario l/abnormal. [facility]2015-12-28 16:57:00 Test Item Value Reference Range Interpretation Comments Alk Phos (test code = Alk Phos) 97 39-136 [facility]2015-12-28 16:57:00 Test Item Value Reference Range Interpretation Comments Albumin Lvl (test code = Albumin Lvl) 3.6 3.5-5.0 [facility]2015-12-28 16:57:00 Test Item Value Reference Range Interpretation Comments Total Protein (test code = Total 7.3 6.4-8.4 Protein) [facility]2015-12-28 16:57:00 Test Item Value Reference Range Interpretation Comments Bili Total (test code = Bili Total) 0.4 0.2-1.3 [facility]2015-12-28 16:57:00 Test Item Value Reference Range Interpretation Comments Glucose Lvl (test code = Glucose Lvl) 95 70-99 [facility]2015-12-28 16:57:00 Test Item Value Reference Range Interpretation Comments Creatinine Lvl (test code = Creatinine 0.93 0.50-1.40 Lvl) [facility]2015-12-28 16:57:00 Test Item Value Reference Range Interpretation Comments BUN (test code = BUN) 9 7-22 [facility]2015-12-28 16:57:00 Test Item Value Reference Range Interpretation Comments Sodium Lvl (test code = Sodium Lvl) 139 135-145 [facility]2015-12-28 16:57:00 Test Item Value Reference Range Interpretation Comments A/G Ratio (test code = A/G Ratio) 1.0 0.7-1.6 [facility]2015-12-28 16:57:00 Test Item Value Reference Range Interpretation Comments Globulin (test code = Globulin) 3.7 2.0-4.0 [facility]2015-12-28 16:57:00 Test Item Value Reference Range Interpretation Comments B/C Ratio (test code = B/C Ratio) 10 6-25 [facility]2015-12-28 16:57:00 Test Item Value Reference Range Interpretation Comments AGAP (test code = AGAP) 12.6 10.0-20.0 [place] 39844015-12-28 16:57:00 Test Item Value Reference Range Interpretation Comments S Preg (test code = S Negative *NA*(08/26/15 Preg) 10:57 AM) [facility] UptownBisxuxuDCZZYZBEYY7070-21-22 16:57:00 Test Item Value Reference Range Interpretation Comments Eosinophils # (test code 0.4 See_Comment [A utomated message] The = Eosinophils #) system whic h generated this result tra nsmitted reference range : <=0.5. The reference r kat was not used to int erpret this result as normal/abnormal . [facility] UptownTtspiuhTUZOEVXOTU6925-52-86 16:57:00 Test Item Value Reference Range Interpretation Comments Microcyte (test code = 1+ *ABN*(08/26/15 Microcyte) 10:57 AM) [facility] UptownQcgrwtoUQAQATBYZQ9988-56-63 16:57:00 Test Item Value Reference Range Interpretation Comments Basophils # (test code 0.1 See_Comment [Aut omated message] The = Basophils #) system which generated this result tra nsmitted reference range : <=0.2. The reference r kat was not used to int erpret this result as normal/abnormal . [facility] UptownLfocymoFOWLIZKPUG0929-97-53 16:57:00 Test Item Value Reference Range Interpretation Comments Monocytes (test code = Monocytes) 8.6 2.0-12.0 [facility] UptownPdrxxqrWFJOBXLTUH0379-31-05 16:57:00 Test Item Value Reference Range Interpretation Comments Lymphocytes (test code = Lymphocytes) 40.6 20.0-40.0 [facility] UptownYmlvkmaDBUBUVWCEL1247-63-50 16:57:00 Test Item Value Reference Range Interpretation Comments Eosinophils (test code = 5.0 See_Comment [A utomated message] The Eosinophils) system which ge nerated this result tra nsmitted reference range : <=4.0. The reference r kat was not used to int erpret this result as normal/abnormal . [facility] UptownTojcvjhCINAYVXIRB9773-47-55 16:57:00 Test Item Value Reference Range Interpretation Comments Segs (test code = Segs) 44.8 45.0-75.0 [facility] UptownMiecnlpDEIXFZNPYG8588-70-63 16:57:00 Test Item Value Reference Range Interpretation Comments Basophils (test code = 1.0 See_Comment [Aut omated message] The Basophils) system which ge nerated this result tra nsmitted reference range : <=1.0. The reference r kat was not used to int erpret this result as normal/abnormal . [facility] UptownJlsdizzTJFMYOLPAP4864-37-48 16:57:00 Test Item Value Reference Range Interpretation Comments Segs-Bands # (test code = Segs-Bands #) 3.3 1.5-8.1 [facility] UptownCbyridpBPDJZVXVXF7001-09-88 16:57:00 Test Item Value Reference Range Interpretation Comments Monocytes # (test code 0.6 See_Comment [Aut omated message] The = Monocytes #) system which generated this result tra nsmitted reference range : <=0.8. The reference r kat was not used to int erpret this result as normal/abnormal . [facility] UptownInffbljMCNOGGPXTS7450-59-03 16:57:00 Test Item Value Reference Range Interpretation Comments Lymphocytes # (test code = Lymphocytes 3.0 1.0-5.5 #) [facility] UptownZoxusvpPYSMEROIVK4180-79-17 16:57:00 Test Item Value Reference Range Interpretation Comments PT (test code = PT) 14.0 s 12.0-14.7 [facility] UptownVcmtppiKLELNLHFRO6645-20-89 16:57:00 Test Item Value Reference Range Interpretation Comments INR (test code = INR) 1.05 0.85-1.17 [facility] UptownUtlultoMPVYHQDJSD8793-33-24 16:57:00 Test Item Value Reference Range Interpretation Comments PTT (test code = PTT) 30.3 s 22.9-35.8 [facility] UptownTeeqafrFYMDZXGOTO9035-01-64 16:57:00 Test Item Value Reference Range Interpretation Comments MPV (test code = MPV) 8.9 7.4-10.4 [facility] UptownKbmqcdiNFAEVYMNJR1139-70-30 16:57:00 Test Item Value Reference Range Interpretation Comments RDW (test code = RDW) 15.8 11.5-14.5 [facility] UptownExhftfsELLQKLSJSE0208-74-45 16:57:00 Test Item Value Reference Range Interpretation Comments Platelet (test code = Platelet) 271 133-450 [facility] UptownRjzatnjBSZLUDCOHR5249-16-54 16:57:00 Test Item Value Reference Range Interpretation Comments WBC (test code = WBC) 7.3 3.7-10.4 [facility] UptownKwrwvyaYROIPWFPHB5513-85-33 16:57:00 Test Item Value Reference Range Interpretation Comments RBC (test code = RBC) 5.14 4.20-5.40 [facility] UptownEcaabonFPWZOJKOYK9427-88-73 16:57:00 Test Item Value Reference Range Interpretation Comments MCV (test code = MCV) 77.9 80.0-98.0 [facility] UptownArpzywvVVERHDYCUA5941-42-61 16:57:00 Test Item Value Reference Range Interpretation Comments MCH (test code = MCH) 23.9 pg 27.0-31.0 [facility] UptownOeuiumsYTQIUKCHIV5684-25-37 16:57:00 Test Item Value Reference Range Interpretation Comments MCHC (test code = MCHC) 30.7 32.0-36.0 [facility] UptownZjyskbfZCLILAMQQV1738-58-71 16:57:00 Test Item Value Reference Range Interpretation Comments Hct (test code = Hct) 40.1 36.0-48.0 [facility]DtlnnqrISYJVMVBLU8056-85-73 16:57:00 Test Item Value Reference Range Interpretation Comments Hgb (test code = Hgb) 12.3 12.0-16.0 [facility]2015-12-28 16:57:00 Test Item Value Reference Range Interpretation Comments eGFR (test code = eGFR) 86 [facility]2015-12-28 16:57:00 Test Item Value Reference Range Interpretation Comments Potassium Lvl (test code = Potassium 3.6 3.5-5.1 Lvl) [facility]2015-12-28 16:57:00 Test Item Value Reference Range Interpretation Comments CO2 (test code = CO2) 27 24-32 [facility]2015-12-28 16:57:00 Test Item Value Reference Range Interpretation Comments Chloride Lvl (test code = Chloride Lvl) 103 95-109 [facility]2015-12-28 16:57:00 Test Item Value Reference Range Interpretation Comments Calcium Lvl (test code = Calcium Lvl) 9.4 8.5-10.5 [facility]2015-12-28 16:57:00 Test Item Value Reference Range Interpretation Comments AST (test code = AST) 16 See_Comment [Auto mated message] The system which ge nerated this result transmit arvind reference range : <=37. The reference range was not used to interpr et this result as mario l/abnormal. [facility]2015-12-28 16:57:00 Test Item Value Reference Range Interpretation Comments ALT (test code = ALT) 43 See_Comment [Auto mated message] The system which ge nerated this result transmit arvind reference range : <=65. The reference range was not used to interpr et this result as mario l/abnormal. [facility]2015-12-28 16:57:00 Test Item Value Reference Range Interpretation Comments Alk Phos (test code = Alk Phos) 97 39-136 [facility]2015-12-28 16:57:00 Test Item Value Reference Range Interpretation Comments Albumin Lvl (test code = Albumin Lvl) 3.6 3.5-5.0 [facility]2015-12-28 16:57:00 Test Item Value Reference Range Interpretation Comments Total Protein (test code = Total 7.3 6.4-8.4 Protein) [facility]2015-12-28 16:57:00 Test Item Value Reference Range Interpretation Comments Bili Total (test code = Bili Total) 0.4 0.2-1.3 [facility]2015-12-28 16:57:00 Test Item Value Reference Range Interpretation Comments Glucose Lvl (test code = Glucose Lvl) 95 70-99 [facility]2015-12-28 16:57:00 Test Item Value Reference Range Interpretation Comments Creatinine Lvl (test code = Creatinine 0.93 0.50-1.40 Lvl) [facility]2015-12-28 16:57:00 Test Item Value Reference Range Interpretation Comments BUN (test code = BUN) 9 - [facility]2015-12-28 16:57:00 Test Item Value Reference Range Interpretation Comments Sodium Lvl (test code = Sodium Lvl) 139 135-145 [facility]2015-12-28 16:57:00 Test Item Value Reference Range Interpretation Comments A/G Ratio (test code = A/G Ratio) 1.0 0.7-1.6 [facility]2015-12-28 16:57:00 Test Item Value Reference Range Interpretation Comments Globulin (test code = Globulin) 3.7 2.0-4.0 [facility]2015-12-28 16:57:00 Test Item Value Reference Range Interpretation Comments B/C Ratio (test code = B/C Ratio) 10 - [facility]2015-12-28 16:57:00 Test Item Value Reference Range Interpretation Comments AGAP (test code = AGAP) 12.6 10.0-20.0 [facility] IrvingXkhpjpiJSGULFSGJWBXL5276-77-77 16:57:00 Test Item Value Reference Range Interpretation Comments S Preg (test code = S Negative *NA*(08/26/15 Preg) 10:57 AM) [facility] UptownYxgkqofVYNLEAOMOB5865-26-47 16:57:00 Test Item Value Reference Range Interpretation Comments Eosinophils # (test code 0.4 See_Comment [A utomated message] The = Eosinophils #) system [facility] h generated this result tra nsmitted reference range : <=0.5. The reference r kat was not used to int erpret this result as normal/abnormal . [facility] UptownMdxrapwNTYQUQBXNK0012-42-66 16:57:00 Test Item Value Reference Range Interpretation Comments Microcyte (test code = 1+ *ABN*(08/26/15 Microcyte) 10:57 AM) [facility] UptownSdoygfuGCMTQXAFPN8691-64-31 16:57:00 Test Item Value Reference Range Interpretation Comments Basophils # (test code 0.1 See_Comment [Aut omated message] The = Basophils #) system which generated this result tra nsmitted reference range : <=0.2. The reference r kat was not used to int erpret this result as normal/abnormal . [facility] UptownTrobjckLNMXXRCMCF3940-78-38 16:57:00 Test Item Value Reference Range Interpretation Comments Monocytes (test code = Monocytes) 8.6 2.0-12.0 [facility] UptownPlhboavIQFVGEDHNN1968-63-66 16:57:00 Test Item Value Reference Range Interpretation Comments Lymphocytes (test code = Lymphocytes) 40.6 20.0-40.0 [facility] UptownJxwnsubEJYNPJIBTM1889-84-34 16:57:00 Test Item Value Reference Range Interpretation Comments Eosinophils (test code = 5.0 See_Comment [A utomated message] The Eosinophils) system which ge nerated this result tra nsmitted reference range : <=4.0. The reference r kat was not used to int erpret this result as normal/abnormal . [facility] UptownWjsgzrdFXMVTCDIUB2547-17-60 16:57:00 Test Item Value Reference Range Interpretation Comments Segs (test code = Segs) 44.8 45.0-75.0 [facility] UptownBvvjphfEVHGZHHGFC7882-44-75 16:57:00 Test Item Value Reference Range Interpretation Comments Basophils (test code = 1.0 See_Comment [Aut omated message] The Basophils) system which ge nerated this result tra nsmitted reference range : <=1.0. The reference r kat was not used to int erpret this result as normal/abnormal . [facility] UptownDppdydbBEMIMKMNVW5506-57-90 16:57:00 Test Item Value Reference Range Interpretation Comments Segs-Bands # (test code = Segs-Bands #) 3.3 1.5-8.1 [facility] UptownArtyidyFHNBJFLDWR0505-48-46 16:57:00 Test Item Value Reference Range Interpretation Comments Monocytes # (test code 0.6 See_Comment [Aut omated message] The = Monocytes #) system which generated this result tra nsmitted reference range : <=0.8. The reference r kat was not used to int erpret this result as normal/abnormal . [facility] UptownRrtlwwxSQMGEONHSJ2141-98-67 16:57:00 Test Item Value Reference Range Interpretation Comments Lymphocytes # (test code = Lymphocytes 3.0 1.0-5.5 #) [facility] UptownQbwfgglFKKJNQTNCR2571-84-75 16:57:00 Test Item Value Reference Range Interpretation Comments PT (test code = PT) 14.0 s 12.0-14.7 [facility] UptownSxeppznKZXOUHWITW0501-13-41 16:57:00 Test Item Value Reference Range Interpretation Comments INR (test code = INR) 1.05 0.85-1.17 [facility]ownYktfwziEUPGDHMYTJ1255-81-34 16:57:00 Test Item Value Reference Range Interpretation Comments PTT (test code = PTT) 30.3 s 22.9-35.8 [facility]ptownYrtzqhdMECWUEJCSV7410-58-05 16:57:00 Test Item Value Reference Range Interpretation Comments MPV (test code = MPV) 8.9 7.4-10.4 [facility]ptownLdflbsjOKEIVOPXSG8861-86-57 16:57:00 Test Item Value Reference Range Interpretation Comments RDW (test code = RDW) 15.8 11.5-14.5 [facility]ptownEvkflapGDXMARDULR3375-22-20 16:57:00 Test Item Value Reference Range Interpretation Comments Platelet (test code = Platelet) 271 133-450 [facility] UptownUkihkisGBZIACCWJA3302-00-62 16:57:00 Test Item Value Reference Range Interpretation Comments WBC (test code = WBC) 7.3 3.7-10.4 [facility]ptownEytsqeiOTABBPBQCE7786-53-13 16:57:00 Test Item Value Reference Range Interpretation Comments RBC (test code = RBC) 5.14 4.20-5.40 [facility]ptownNicecdxFSSLEXYQZO6335-66-40 16:57:00 Test Item Value Reference Range Interpretation Comments MCV (test code = MCV) 77.9 80.0-98.0 [facility] UptownLyupxarEGOXFBPYXL4642-46-38 16:57:00 Test Item Value Reference Range Interpretation Comments MCH (test code = MCH) 23.9 pg 27.0-31.0 [facility] UptownBgumgcmCMAGKWXDWK4931-89-11 16:57:00 Test Item Value Reference Range Interpretation Comments MCHC (test code = MCHC) 30.7 32.0-36.0 [facility] UptownDrdrwfnXXDJRILLUA0237-90-61 16:57:00 Test Item Value Reference Range Interpretation Comments Hct (test code = Hct) 40.1 36.0-48.0 [facility]ptownWptnqcmLMZUVSYWKL2118-24-73 16:57:00 Test Item Value Reference Range Interpretation Comments Hgb (test code = Hgb) 12.3 12.0-16.0 [facility]2015-12-28 16:57:00 Test Item Value Reference Range Interpretation Comments eGFR (test code = eGFR) 86 [facility]2015-12-28 16:57:00 Test Item Value Reference Range Interpretation Comments Potassium Lvl (test code = Potassium 3.6 3.5-5.1 Lvl) [facility]2015-12-28 16:57:00 Test Item Value Reference Range Interpretation Comments CO2 (test code = CO2) 27 24-32 [facility]2015-12-28 16:57:00 Test Item Value Reference Range Interpretation Comments Chloride Lvl (test code = Chloride Lvl) 103 95-109 [facility]2015-12-28 16:57:00 Test Item Value Reference Range Interpretation Comments Calcium Lvl (test code = Calcium Lvl) 9.4 8.5-10.5 [facility]2015-12-28 16:57:00 Test Item Value Reference Range Interpretation Comments AST (test code = AST) 16 See_Comment [Auto mated message] The system which ge nerated this result transmit arvind reference range : <=37. The reference range was not used to interpr et this result as mario l/abnormal. [facility]2015-12-28 16:57:00 Test Item Value Reference Range Interpretation Comments ALT (test code = ALT) 43 See_Comment [Auto mated message] The system which ge nerated this result transmit arvind reference range : <=65. The reference range was not used to interpr et this result as mario l/abnormal. [facility]2015-12-28 16:57:00 Test Item Value Reference Range Interpretation Comments Alk Phos (test code = Alk Phos) 97 39-136 [facility]2015-12-28 16:57:00 Test Item Value Reference Range Interpretation Comments Albumin Lvl (test code = Albumin Lvl) 3.6 3.5-5.0 [facility]2015-12-28 16:57:00 Test Item Value Reference Range Interpretation Comments Total Protein (test code = Total 7.3 6.4-8.4 Protein) [facility]2015-12-28 16:57:00 Test Item Value Reference Range Interpretation Comments Bili Total (test code = Bili Total) 0.4 0.2-1.3 [facility]2015-12-28 16:57:00 Test Item Value Reference Range Interpretation Comments Glucose Lvl (test code = Glucose Lvl) 95 70-99 [facility]2015-12-28 16:57:00 Test Item Value Reference Range Interpretation Comments Creatinine Lvl (test code = Creatinine 0.93 0.50-1.40 Lvl) [facility]2015-12-28 16:57:00 Test Item Value Reference Range Interpretation Comments BUN (test code = BUN) 9 - [facility]2015-12-28 16:57:00 Test Item Value Reference Range Interpretation Comments Sodium Lvl (test code = Sodium Lvl) 139 135-145 [facility]2015-12-28 16:57:00 Test Item Value Reference Range Interpretation Comments A/G Ratio (test code = A/G Ratio) 1.0 0.7-1.6 [facility]2015-12-28 16:57:00 Test Item Value Reference Range Interpretation Comments Globulin (test code = Globulin) 3.7 2.0-4.0 [facility]2015-12-28 16:57:00 Test Item Value Reference Range Interpretation Comments B/C Ratio (test code = B/C Ratio) 10 6- [facility]2015-12-28 16:57:00 Test Item Value Reference Range Interpretation Comments AGAP (test code = AGAP) 12.6 10.0-20.0 [facility] IrvingEfsozvwACTFIETRULXTB8067-63-18 16:57:00 Test Item Value Reference Range Interpretation Comments S Preg (test code = S Negative *NA*(08/26/15 Preg) 10:57 AM) [facility]ptownMiozleqBQPUMCCSXC7063-30-42 16:57:00 Test Item Value Reference Range Interpretation Comments Eosinophils # (test code 0.4 See_Comment [A utomated message] The = Eosinophils #) system whic h generated this result tra nsmitted reference range : <=0.5. The reference r kat was not used to int erpret this result as normal/abnormal . [facility]ptownHowhutvQPPKMGOHXW1112-80-93 16:57:00 Test Item Value Reference Range Interpretation Comments Microcyte (test code = 1+ *ABN*(08/26/15 Microcyte) 10:57 AM) [facility]ptownCofjbyiCXGLZKAKRS1253-67-56 16:57:00 Test Item Value Reference Range Interpretation Comments Basophils # (test code 0.1 See_Comment [Aut omated message] The = Basophils #) system which generated this result tra nsmitted reference range : <=0.2. The reference r kat was not used to int erpret this result as normal/abnormal . [facility]ptownEakndlaTJKNDJUQKE9529-51-90 16:57:00 Test Item Value Reference Range Interpretation Comments Monocytes (test code = Monocytes) 8.6 2.0-12.0 [facility] UptownRzdohbqIALWEKICNN4996-58-83 16:57:00 Test Item Value Reference Range Interpretation Comments Lymphocytes (test code = Lymphocytes) 40.6 20.0-40.0 [facility] UptownCjatnzvMCFVJJLGCF9742-33-81 16:57:00 Test Item Value Reference Range Interpretation Comments Eosinophils (test code = 5.0 See_Comment [A utomated message] The Eosinophils) system which ge nerated this result tra nsmitted reference range : <=4.0. The reference r kat was not used to int erpret this result as normal/abnormal . [facility] UptownUsdnspxXSCVYUBYUA2826-85-36 16:57:00 Test Item Value Reference Range Interpretation Comments Segs (test code = Segs) 44.8 45.0-75.0 [facility] UptownUnlvkibTVBSQHSZBC5294-71-14 16:57:00 Test Item Value Reference Range Interpretation Comments Basophils (test code = 1.0 See_Comment [Aut omated message] The Basophils) system which ge nerated this result tra nsmitted reference range : <=1.0. The reference r kat was not used to int erpret this result as normal/abnormal . [facility] UptownJcicqodEATYFWOVTB8432-51-27 16:57:00 Test Item Value Reference Range Interpretation Comments Segs-Bands # (test code = Segs-Bands #) 3.3 1.5-8.1 [facility] UptownTeheyghTSDBCGRRGI2141-02-68 16:57:00 Test Item Value Reference Range Interpretation Comments Monocytes # (test code 0.6 See_Comment [Aut omated message] The = Monocytes #) system which generated this result tra nsmitted reference range : <=0.8. The reference r kat was not used to int erpret this result as normal/abnormal . [facility] UptownXgsyiygMLFHBHMPQL5963-02-95 16:57:00 Test Item Value Reference Range Interpretation Comments Lymphocytes # (test code = Lymphocytes 3.0 1.0-5.5 #) [facility] UptownDraixjqASGCRSSMCY0770-10-81 16:57:00 Test Item Value Reference Range Interpretation Comments PT (test code = PT) 14.0 s 12.0-14.7 [facility] UptownWprqrnyMXWOYNPUYP7865-51-92 16:57:00 Test Item Value Reference Range Interpretation Comments INR (test code = INR) 1.05 0.85-1.17 [facility] UptownDcticlgOQWGREIWMG5803-82-19 16:57:00 Test Item Value Reference Range Interpretation Comments PTT (test code = PTT) 30.3 s 22.9-35.8 [facility] UptownLzapyipKLQRHRRZIG8620-38-40 16:57:00 Test Item Value Reference Range Interpretation Comments MPV (test code = MPV) 8.9 7.4-10.4 [facility] UptownFhowdfnSOZJRBAUIC9555-36-13 16:57:00 Test Item Value Reference Range Interpretation Comments RDW (test code = RDW) 15.8 11.5-14.5 [facility] UptownFswckfgXKHJAQFWIJ6148-01-05 16:57:00 Test Item Value Reference Range Interpretation Comments Platelet (test code = Platelet) 271 133-450 [facility] UptownYcawqdeAHPYRAEQND0094-78-40 16:57:00 Test Item Value Reference Range Interpretation Comments WBC (test code = WBC) 7.3 3.7-10.4 [facility] UptownFylvxzdURUJUQEMXZ2655-81-06 16:57:00 Test Item Value Reference Range Interpretation Comments RBC (test code = RBC) 5.14 4.20-5.40 [facility] UptownFbneukoXLMBLQQYWK3371-33-07 16:57:00 Test Item Value Reference Range Interpretation Comments MCV (test code = MCV) 77.9 80.0-98.0 [facility] UptownAllvpxmKPOXUYYUVO8158-87-77 16:57:00 Test Item Value Reference Range Interpretation Comments MCH (test code = MCH) 23.9 pg 27.0-31.0 [facility] UptownBugsheaKKFHNOYUMC0907-75-63 16:57:00 Test Item Value Reference Range Interpretation Comments MCHC (test code = MCHC) 30.7 32.0-36.0 [facility] UptownJveozqxMBKZRPIZJN4200-48-09 16:57:00 Test Item Value Reference Range Interpretation Comments Hct (test code = Hct) 40.1 36.0-48.0 [facility] UptownMittzjvFNKUUUXKGH9134-58-27 16:57:00 Test Item Value Reference Range Interpretation Comments Hgb (test code = Hgb) 12.3 12.0-16.0 [facility]2015-12-28 16:57:00 Test Item Value Reference Range Interpretation Comments eGFR (test code = eGFR) 86 [facility]2015-12-28 16:57:00 Test Item Value Reference Range Interpretation Comments Potassium Lvl (test code = Potassium 3.6 3.5-5.1 Lvl) [facility]2015-12-28 16:57:00 Test Item Value Reference Range Interpretation Comments CO2 (test code = CO2) 27 24-32 [facility]2015-12-28 16:57:00 Test Item Value Reference Range Interpretation Comments Chloride Lvl (test code = Chloride Lvl) 103 95-109 [facility]2015-12-28 16:57:00 Test Item Value Reference Range Interpretation Comments Calcium Lvl (test code = Calcium Lvl) 9.4 8.5-10.5 [facility]2015-12-28 16:57:00 Test Item Value Reference Range Interpretation Comments AST (test code = AST) 16 See_Comment [Auto mated message] The system which ge nerated this result transmit arvind reference range : <=37. The reference range was not used to interpr et this result as mario l/abnormal. [facility]2015-12-28 16:57:00 Test Item Value Reference Range Interpretation Comments ALT (test code = ALT) 43 See_Comment [Auto mated message] The system which ge nerated this result transmit arvind reference range : <=65. The reference range was not used to interpr et this result as mario l/abnormal. [facility]2015-12-28 16:57:00 Test Item Value Reference Range Interpretation Comments Alk Phos (test code = Alk Phos) 97 39-136 [facility]2015-12-28 16:57:00 Test Item Value Reference Range Interpretation Comments Albumin Lvl (test code = Albumin Lvl) 3.6 3.5-5.0 [facility]2015-12-28 16:57:00 Test Item Value Reference Range Interpretation Comments Total Protein (test code = Total 7.3 6.4-8.4 Protein) [facility]2015-12-28 16:57:00 Test Item Value Reference Range Interpretation Comments Bili Total (test code = Bili Total) 0.4 0.2-1.3 [facility]2015-12-28 16:57:00 Test Item Value Reference Range Interpretation Comments Glucose Lvl (test code = Glucose Lvl) 95 70-99 [facility]2015-12-28 16:57:00 Test Item Value Reference Range Interpretation Comments Creatinine Lvl (test code = Creatinine 0.93 0.50-1.40 Lvl) [facility]2015-12-28 16:57:00 Test Item Value Reference Range Interpretation Comments BUN (test code = BUN) 9 7-22 [facility]2015-12-28 16:57:00 Test Item Value Reference Range Interpretation Comments Sodium Lvl (test code = Sodium Lvl) 139 135-145 [facility]2015-12-28 16:57:00 Test Item Value Reference Range Interpretation Comments A/G Ratio (test code = A/G Ratio) 1.0 0.7-1.6 [facility]2015-12-28 16:57:00 Test Item Value Reference Range Interpretation Comments Globulin (test code = Globulin) 3.7 2.0-4.0 [facility]2015-12-28 16:57:00 Test Item Value Reference Range Interpretation Comments B/C Ratio (test code = B/C Ratio) 10 6-25 [place] 203065-12-28 16:57:00 Test Item Value Reference Range Interpretation Comments AGAP (test code = AGAP) 12.6 10.0-20.0 [facility] IrvingUvlxaxcADGKCRHLWLBVJ2301-66-68 16:57:00 Test Item Value Reference Range Interpretation Comments S Preg (test code = S Negative *NA*(08/26/15 Preg) 10:57 AM) [facility] UptownPcvirhqIIHYBJEUKJ1956-52-39 16:57:00 Test Item Value Reference Range Interpretation Comments Eosinophils # (test code 0.4 See_Comment [A utomated message] The = Eosinophils #) system whic h generated this result tra nsmitted reference range : <=0.5. The reference r kat was not used to int erpret this result as normal/abnormal . [facility] UptownNttduvvEMBKMXKNXZ5785-23-08 16:57:00 Test Item Value Reference Range Interpretation Comments Microcyte (test code = 1+ *ABN*(08/26/15 Microcyte) 10:57 AM) [facility] UptownBogomhoLGQRVUJTQK3562-40-45 16:57:00 Test Item Value Reference Range Interpretation Comments Basophils # (test code 0.1 See_Comment [Aut omated message] The = Basophils #) system which generated this result tra nsmitted reference range : <=0.2. The reference r kat was not used to int erpret this result as normal/abnormal . [facility] UptownCcihvrfOBGOOHQQJG4674-27-29 16:57:00 Test Item Value Reference Range Interpretation Comments Monocytes (test code = Monocytes) 8.6 2.0-12.0 [facility] UptownQycxavfIMLBKPMRQE2899-31-83 16:57:00 Test Item Value Reference Range Interpretation Comments Lymphocytes (test code = Lymphocytes) 40.6 20.0-40.0 [facility] UptownLelwpyeGANNMWLWHS3280-63-71 16:57:00 Test Item Value Reference Range Interpretation Comments Eosinophils (test code = 5.0 See_Comment [A utomated message] The Eosinophils) system which ge nerated this result tra nsmitted reference range : <=4.0. The reference r kat was not used to int erpret this result as normal/abnormal . [facility] UptownSysvkbeHQAQUTFSNH8093-87-66 16:57:00 Test Item Value Reference Range Interpretation Comments Segs (test code = Segs) 44.8 45.0-75.0 [facility] UptownWwggwxhEXKHPMGPZG5407-41-22 16:57:00 Test Item Value Reference Range Interpretation Comments Basophils (test code = 1.0 See_Comment [Aut omated message] The Basophils) system which ge nerated this result tra nsmitted reference range : <=1.0. The reference r kat was not used to int erpret this result as normal/abnormal . [facility] UptownXqhpgyoFDFIJVDVLO3454-38-11 16:57:00 Test Item Value Reference Range Interpretation Comments Segs-Bands # (test code = Segs-Bands #) 3.3 1.5-8.1 [facility] UptownOflaozlMPTANMCXAA2514-27-46 16:57:00 Test Item Value Reference Range Interpretation Comments Monocytes # (test code 0.6 See_Comment [Aut omated message] The = Monocytes #) system which generated this result tra nsmitted reference range : <=0.8. The reference r kat was not used to int erpret this result as normal/abnormal . [facility] UptownXaigyblOQKTWCQAKR2515-54-42 16:57:00 Test Item Value Reference Range Interpretation Comments Lymphocytes # (test code = Lymphocytes 3.0 1.0-5.5 #) [facility] UptownReauypmBRPODICRYC6198-95-08 16:57:00 Test Item Value Reference Range Interpretation Comments PT (test code = PT) 14.0 s 12.0-14.7 [facility] UptownAqjpoygMNRZATRKWF9476-58-40 16:57:00 Test Item Value Reference Range Interpretation Comments INR (test code = INR) 1.05 0.85-1.17 [facility] UptownNdrrkuqLMHPFZOVUP4412-47-04 16:57:00 Test Item Value Reference Range Interpretation Comments PTT (test code = PTT) 30.3 s 22.9-35.8 [facility] UptownVexbggvCXWBJJDFJH7309-78-86 16:57:00 Test Item Value Reference Range Interpretation Comments MPV (test code = MPV) 8.9 7.4-10.4 [facility] UptownZxowiufTNKFEPDQKK9721-50-59 16:57:00 Test Item Value Reference Range Interpretation Comments RDW (test code = RDW) 15.8 11.5-14.5 [facility] UptownVjghwwmPPUIAUZKSE8620-70-49 16:57:00 Test Item Value Reference Range Interpretation Comments Platelet (test code = Platelet) 271 133-450 [place] 733975-12-28 16:57:00 Test Item Value Reference Range Interpretation Comments WBC (test code = WBC) 7.3 3.7-10.4 [facility] UptownGokzubvVXLUSTPTIW5639-86-67 16:57:00 Test Item Value Reference Range Interpretation Comments RBC (test code = RBC) 5.14 4.20-5.40 [facility] UptownEvtfexgKVMRWKXBTC1148-57-29 16:57:00 Test Item Value Reference Range Interpretation Comments MCV (test code = MCV) 77.9 80.0-98.0 [facility] UptownEeirlzdUUWXDEFSGY6866-45-93 16:57:00 Test Item Value Reference Range Interpretation Comments MCH (test code = MCH) 23.9 pg 27.0-31.0 [facility] UptownHogcueeKCMHFNRZZT8275-93-54 16:57:00 Test Item Value Reference Range Interpretation Comments MCHC (test code = MCHC) 30.7 32.0-36.0 [facility] UptownCcaamsbUCICIJAIIC6651-73-73 16:57:00 Test Item Value Reference Range Interpretation Comments Hct (test code = Hct) 40.1 36.0-48.0 [facility] UptownGaahmskNTSHXCDJJX1508-34-47 16:57:00 Test Item Value Reference Range Interpretation Comments Hgb (test code = Hgb) 12.3 12.0-16.0 [facility]2015-12-28 16:57:00 Test Item Value Reference Range Interpretation Comments eGFR (test code = eGFR) 86 [facility]2015-12-28 16:57:00 Test Item Value Reference Range Interpretation Comments Potassium Lvl (test code = Potassium 3.6 3.5-5.1 Lvl) [facility]2015-12-28 16:57:00 Test Item Value Reference Range Interpretation Comments CO2 (test code = CO2) 27 24-32 [facility]2015-12-28 16:57:00 Test Item Value Reference Range Interpretation Comments Chloride Lvl (test code = Chloride Lvl) 103 95-109 [facility]2015-12-28 16:57:00 Test Item Value Reference Range Interpretation Comments Calcium Lvl (test code = Calcium Lvl) 9.4 8.5-10.5 [facility]2015-12-28 16:57:00 Test Item Value Reference Range Interpretation Comments AST (test code = AST) 16 See_Comment [Auto mated message] The system which ge nerated this result transmit arvind reference range : <=37. The reference range was not used to interpr et this result as mario l/abnormal. [facility]2015-12-28 16:57:00 Test Item Value Reference Range Interpretation Comments ALT (test code = ALT) 43 See_Comment [Auto mated message] The system which ge nerated this result transmit arvind reference range : <=65. The reference range was not used to interpr et this result as mario l/abnormal. [facility]2015-12-28 16:57:00 Test Item Value Reference Range Interpretation Comments Alk Phos (test code = Alk Phos) 97 39-136 [facility]2015-12-28 16:57:00 Test Item Value Reference Range Interpretation Comments Albumin Lvl (test code = Albumin Lvl) 3.6 3.5-5.0 [facility]2015-12-28 16:57:00 Test Item Value Reference Range Interpretation Comments Total Protein (test code = Total 7.3 6.4-8.4 Protein) [facility]2015-12-28 16:57:00 Test Item Value Reference Range Interpretation Comments Bili Total (test code = Bili Total) 0.4 0.2-1.3 [facility]2015-12-28 16:57:00 Test Item Value Reference Range Interpretation Comments Glucose Lvl (test code = Glucose Lvl) 95 70-99 [facility]2015-12-28 16:57:00 Test Item Value Reference Range Interpretation Comments Creatinine Lvl (test code = Creatinine 0.93 0.50-1.40 Lvl) [facility]2015-12-28 16:57:00 Test Item Value Reference Range Interpretation Comments BUN (test code = BUN) 9 7-22 [facility]2015-12-28 16:57:00 Test Item Value Reference Range Interpretation Comments Sodium Lvl (test code = Sodium Lvl) 139 135-145 [facility]2015-12-28 16:57:00 Test Item Value Reference Range Interpretation Comments A/G Ratio (test code = A/G Ratio) 1.0 0.7-1.6 [facility]2015-12-28 16:57:00 Test Item Value Reference Range Interpretation Comments Globulin (test code = Globulin) 3.7 2.0-4.0 [facility]2015-12-28 16:57:00 Test Item Value Reference Range Interpretation Comments B/C Ratio (test code = B/C Ratio) 10 6-25 [facility]2015-12-28 16:57:00 Test Item Value Reference Range Interpretation Comments AGAP (test code = AGAP) 12.6 10.0-20.0 [facility]HdlsnboRZDYEJBBAKDAL1486-93-02 16:57:00 Test Item Value Reference Range Interpretation Comments S Preg (test code = S Negative *NA*(08/26/15 Preg) 10:57 AM) [facility] UptownKxfvtdkKATSBJSSYS4587-84-47 16:57:00 Test Item Value Reference Range Interpretation Comments Eosinophils # (test code 0.4 See_Comment [A utomated message] The = Eosinophils #) system whic h generated this result tra nsmitted reference range : <=0.5. The reference r kat was not used to int erpret this result as normal/abnormal . [facility]KwzriyfQTOFXXRZBF6592-92-11 16:57:00 Test Item Value Reference Range Interpretation Comments Microcyte (test code = 1+ *ABN*(08/26/15 Microcyte) 10:57 AM) [facility]ownSzmowlgILENXTTUET7392-34-14 16:57:00 Test Item Value Reference Range Interpretation Comments Basophils # (test code 0.1 See_Comment [Aut omated message] The = Basophils #) system which generated this result tra nsmitted reference range : <=0.2. The reference r kat was not used to int erpret this result as normal/abnormal . [facility]ptownRultcewZRAVAEJHKK3975-47-79 16:57:00 Test Item Value Reference Range Interpretation Comments Monocytes (test code = Monocytes) 8.6 2.0-12.0 [facility]ownPtiyftgIWZHBEFIUI9213-11-08 16:57:00 Test Item Value Reference Range Interpretation Comments Lymphocytes (test code = Lymphocytes) 40.6 20.0-40.0 [facility] UptownBpeefdrPLJZQYHJCH4476-40-05 16:57:00 Test Item Value Reference Range Interpretation Comments Eosinophils (test code = 5.0 See_Comment [A utomated message] The Eosinophils) system which ge nerated this result tra nsmitted reference range : <=4.0. The reference r kat was not used to int erpret this result as normal/abnormal . [facility]ownUlhxmhySDNPFOTRGS5099-12-12 16:57:00 Test Item Value Reference Range Interpretation Comments Segs (test code = Segs) 44.8 45.0-75.0 [facility] UptownLugchybLCOFZQXRKQ5132-33-00 16:57:00 Test Item Value Reference Range Interpretation Comments Basophils (test code = 1.0 See_Comment [Aut omated message] The Basophils) system which ge nerated this result tra nsmitted reference range : <=1.0. The reference r kat was not used to int erpret this result as normal/abnormal . [facility]ownJrwtdnuEISLUCCGRO9206-50-24 16:57:00 Test Item Value Reference Range Interpretation Comments Segs-Bands # (test code = Segs-Bands #) 3.3 1.5-8.1 [facility]ptownXweotjuRMDZCCPDYG0973-20-48 16:57:00 Test Item Value Reference Range Interpretation Comments Monocytes # (test code 0.6 See_Comment [Aut omated message] The = Monocytes #) system which generated this result tra nsmitted reference range : <=0.8. The reference r kat was not used to int erpret this result as normal/abnormal . [facility]ptownNlgyxrqDZPCRZOLLC3681-20-03 16:57:00 Test Item Value Reference Range Interpretation Comments Lymphocytes # (test code = Lymphocytes 3.0 1.0-5.5 #) [facility] UptownDympujbRVXRSVAJOE1051-61-25 16:57:00 Test Item Value Reference Range Interpretation Comments PT (test code = PT) 14.0 s 12.0-14.7 [facility]ptownWrhqlmuMOBURKBAJN8102-71-83 16:57:00 Test Item Value Reference Range Interpretation Comments INR (test code = INR) 1.05 0.85-1.17 [facility]ptownWpturxyECXXSRNMBK5713-63-16 16:57:00 Test Item Value Reference Range Interpretation Comments PTT (test code = PTT) 30.3 s 22.9-35.8 [facility] UptownQxgonocBOHBYOBJQE8140-44-45 16:57:00 Test Item Value Reference Range Interpretation Comments MPV (test code = MPV) 8.9 7.4-10.4 [facility] UptownQibfvgyFWGAQWVRQV0600-02-31 16:57:00 Test Item Value Reference Range Interpretation Comments RDW (test code = RDW) 15.8 11.5-14.5 [facility]ptownSbvreecZSKDKZXCYJ4956-19-94 16:57:00 Test Item Value Reference Range Interpretation Comments Platelet (test code = Platelet) 271 133-450 [facility] UptownTzsyqhtWBROSNWALW3343-61-88 16:57:00 Test Item Value Reference Range Interpretation Comments WBC (test code = WBC) 7.3 3.7-10.4 [facility]ptownSpkibinNBOKFKXWQY8453-60-29 16:57:00 Test Item Value Reference Range Interpretation Comments RBC (test code = RBC) 5.14 4.20-5.40 [facility]ptownJxjzrpgYGEPZSJOGM4944-97-31 16:57:00 Test Item Value Reference Range Interpretation Comments MCV (test code = MCV) 77.9 80.0-98.0 [facility]ptownRqvemjwXDAKWPTMAB3382-22-78 16:57:00 Test Item Value Reference Range Interpretation Comments MCH (test code = MCH) 23.9 pg 27.0-31.0 [facility] UptownOcnyykkRHCJQKIIFR9395-43-66 16:57:00 Test Item Value Reference Range Interpretation Comments MCHC (test code = MCHC) 30.7 32.0-36.0 [facility] UptownSlrggbpWXEINISWUW4355-79-55 16:57:00 Test Item Value Reference Range Interpretation Comments Hct (test code = Hct) 40.1 36.0-48.0 [facility] UptownTydiagxUKCBFZXIFW0516-55-21 16:57:00 Test Item Value Reference Range Interpretation Comments Hgb (test code = Hgb) 12.3 12.0-16.0 [facility] PJRSY1525-70-10 10:58:00 Test Item Value Reference Range Interpretation Comments eGFR (test code = eGFR) 126 [facility]2015-12-18 10:58:00 Test Item Value Reference Range Interpretation Comments AST (test code = AST) 29 See_Comment [Auto mated message] The system which ge nerated this result transmit arvind reference range : <=37. The reference range was not used to interpr et this result as mario l/abnormal. [facility]2015-12-18 10:58:00 Test Item Value Reference Range Interpretation Comments Alk Phos (test code = Alk Phos) 86 39-136 [facility]2015-12-18 10:58:00 Test Item Value Reference Range Interpretation Comments Bili Total (test code = Bili Total) 0.3 0.2-1.3 [facility]2015-12-18 10:58:00 Test Item Value Reference Range Interpretation Comments ALT (test code = ALT) 50 See_Comment [Auto mated message] The system which ge nerated this result transmit arvind reference range : <=65. The reference range was not used to interpr et this result as mario l/abnormal. [facility]2015-12-18 10:58:00 Test Item Value Reference Range Interpretation Comments Sodium Lvl (test code = Sodium Lvl) 136 135-145 [facility]2015-12-18 10:58:00 Test Item Value Reference Range Interpretation Comments Potassium Lvl (test code = Potassium 4.0 3.5-5.1 Lvl) [facility]2015-12-18 10:58:00 Test Item Value Reference Range Interpretation Comments Creatinine Lvl (test code = Creatinine 0.62 0.50-1.40 Lvl) [facility]2015-12-18 10:58:00 Test Item Value Reference Range Interpretation Comments Glucose Lvl (test code = Glucose Lvl) 101 70-99 [facility]2015-12-18 10:58:00 Test Item Value Reference Range Interpretation Comments BUN (test code = BUN) 5 7-22 [facility]2015-12-18 10:58:00 Test Item Value Reference Range Interpretation Comments Total Protein (test code = Total 5.8 6.4-8.4 Protein) [facility]2015-12-18 10:58:00 Test Item Value Reference Range Interpretation Comments Albumin Lvl (test code = Albumin Lvl) 3.2 3.5-5.0 [facility]2015-12-18 10:58:00 Test Item Value Reference Range Interpretation Comments Chloride Lvl (test code = Chloride Lvl) 100 95-109 [facility]2015-12-18 10:58:00 Test Item Value Reference Range Interpretation Comments Calcium Lvl (test code = Calcium Lvl) 8.6 8.5-10.5 [facility]2015-12-18 10:58:00 Test Item Value Reference Range Interpretation Comments CO2 (test code = CO2) 27 24-32 [facility]2015-12-18 10:58:00 Test Item Value Reference Range Interpretation Comments B/C Ratio (test code = B/C Ratio) 8 6-25 [facility]2015-12-18 10:58:00 Test Item Value Reference Range Interpretation Comments Globulin (test code = Globulin) 2.6 2.0-4.0 [facility]2015-12-18 10:58:00 Test Item Value Reference Range Interpretation Comments A/G Ratio (test code = A/G Ratio) 1.2 0.7-1.6 [facility]2015-12-18 10:58:00 Test Item Value Reference Range Interpretation Comments AGAP (test code = AGAP) 13.0 10.0-20.0 [facility] UptownLcknwvuCHBRXGGUEW8802-23-79 10:58:00 Test Item Value Reference Range Interpretation Comments Segs (test code = Segs) 74.2 45.0-75.0 [facility]ownSsqhsdxDSUWGROQPB0466-73-06 10:58:00 Test Item Value Reference Range Interpretation Comments Lymphocytes (test code = Lymphocytes) 18.3 20.0-40.0 [facility] UptownDjrankcJBPCVKAZQA2002-34-76 10:58:00 Test Item Value Reference Range Interpretation Comments Monocytes (test code = Monocytes) 7.0 2.0-12.0 [facility] UptownPjekndoMGJQNYHTWF3311-20-07 10:58:00 Test Item Value Reference Range Interpretation Comments Basophils (test code = 0.3 See_Comment [Aut omated message] The Basophils) system which ge nerated this result tra nsmitted reference range : <=1.0. The reference r kat was not used to int erpret this result as normal/abnormal . [facility] UptownHsgsehmIUCOCOTDWT4354-49-03 10:58:00 Test Item Value Reference Range Interpretation Comments Segs-Bands # (test code = Segs-Bands #) 8.1 1.5-8.1 [facility] UptownNjppntqVTDJMYBGJM3684-03-87 10:58:00 Test Item Value Reference Range Interpretation Comments Eosinophils (test code = 0.2 See_Comment [A utomated message] The Eosinophils) system which ge nerated this result tra nsmitted reference range : <=4.0. The reference r kat was not used to int erpret this result as normal/abnormal . [facility] UptownXyftmslPHDEILXPNB0513-07-20 10:58:00 Test Item Value Reference Range Interpretation Comments Monocytes # (test code 0.8 See_Comment [Aut omated message] The = Monocytes #) system which generated this result tra nsmitted reference range : <=0.8. The reference r kat was not used to int erpret this result as normal/abnormal . [facility] UptownCwsjfsfKBKAPBMCWO8600-44-04 10:58:00 Test Item Value Reference Range Interpretation Comments Lymphocytes # (test code = Lymphocytes 2.0 1.0-5.5 #) [facility]ownXizqopsZGWLFCDQOQ6190-53-00 10:58:00 Test Item Value Reference Range Interpretation Comments Microcyte (test code = 1+ *ABN*(08/16/15 Microcyte) 4:58 AM) [facility]ptownJriokhvWEXVXLIXQW3573-98-74 10:58:00 Test Item Value Reference Range Interpretation Comments MPV (test code = MPV) 8.9 7.4-10.4 [facility] UptownCljgusrUDMNEUNEUH1888-69-09 10:58:00 Test Item Value Reference Range Interpretation Comments MCV (test code = MCV) 77.3 80.0-98.0 [facility] UptownYksiinnDWUECZMILY0832-29-54 10:58:00 Test Item Value Reference Range Interpretation Comments Hgb (test code = Hgb) 11.9 12.0-16.0 [facility] UptownCpsdhtoUPEIEGRHEC4848-35-35 10:58:00 Test Item Value Reference Range Interpretation Comments Hct (test code = Hct) 37.5 36.0-48.0 [facility] UptownCcteuddETWRKHAJTM3684-26-01 10:58:00 Test Item Value Reference Range Interpretation Comments MCH (test code = MCH) 24.5 pg 27.0-31.0 [facility] UptownRjzmxkdBYOKSCPWJA9691-95-48 10:58:00 Test Item Value Reference Range Interpretation Comments RBC (test code = RBC) 4.85 4.20-5.40 [facility] UptownVofpwddXSHDWMCCNK7121-92-17 10:58:00 Test Item Value Reference Range Interpretation Comments WBC (test code = WBC) 10.9 3.7-10.4 [facility] UptownJpimechVXKOBFXBAC2612-03-12 10:58:00 Test Item Value Reference Range Interpretation Comments RDW (test code = RDW) 15.9 11.5-14.5 [facility]ownSbdewjfZQXAWPSQQE8920-95-98 10:58:00 Test Item Value Reference Range Interpretation Comments MCHC (test code = MCHC) 31.7 32.0-36.0 [facility] UptownJuywnpmMLNHKZJIEA4227-44-63 10:58:00 Test Item Value Reference Range Interpretation Comments Platelet (test code = Platelet) 242 133-450 [facility]2015-12-18 10:58:00 Test Item Value Reference Range Interpretation Comments eGFR (test code = eGFR) 126 [facility]2015-12-18 10:58:00 Test Item Value Reference Range Interpretation Comments AST (test code = AST) 29 See_Comment [Auto mated message] The system which ge nerated this result transmit arvind reference range : <=37. The reference range was not used to interpr et this result as mario l/abnormal. [facility]2015-12-18 10:58:00 Test Item Value Reference Range Interpretation Comments Alk Phos (test code = Alk Phos) 86 39-136 [facility]2015-12-18 10:58:00 Test Item Value Reference Range Interpretation Comments Bili Total (test code = Bili Total) 0.3 0.2-1.3 [facility]2015-12-18 10:58:00 Test Item Value Reference Range Interpretation Comments ALT (test code = ALT) 50 See_Comment [Auto mated message] The system which ge nerated this result transmit arvind reference range : <=65. The reference range was not used to interpr et this result as mario l/abnormal. [facility]2015-12-18 10:58:00 Test Item Value Reference Range Interpretation Comments Sodium Lvl (test code = Sodium Lvl) 136 135-145 [facility]2015-12-18 10:58:00 Test Item Value Reference Range Interpretation Comments Potassium Lvl (test code = Potassium 4.0 3.5-5.1 Lvl) [facility]2015-12-18 10:58:00 Test Item Value Reference Range Interpretation Comments Creatinine Lvl (test code = Creatinine 0.62 0.50-1.40 Lvl) [facility]2015-12-18 10:58:00 Test Item Value Reference Range Interpretation Comments Glucose Lvl (test code = Glucose Lvl) 101 70-99 [facility]2015-12-18 10:58:00 Test Item Value Reference Range Interpretation Comments BUN (test code = BUN) 5 7-22 [facility]2015-12-18 10:58:00 Test Item Value Reference Range Interpretation Comments Total Protein (test code = Total 5.8 6.4-8.4 Protein) [facility]2015-12-18 10:58:00 Test Item Value Reference Range Interpretation Comments Albumin Lvl (test code = Albumin Lvl) 3.2 3.5-5.0 [facility]2015-12-18 10:58:00 Test Item Value Reference Range Interpretation Comments Chloride Lvl (test code = Chloride Lvl) 100 95-109 [facility]2015-12-18 10:58:00 Test Item Value Reference Range Interpretation Comments Calcium Lvl (test code = Calcium Lvl) 8.6 8.5-10.5 [facility]2015-12-18 10:58:00 Test Item Value Reference Range Interpretation Comments CO2 (test code = CO2) 27 24-32 [facility]2015-12-18 10:58:00 Test Item Value Reference Range Interpretation Comments B/C Ratio (test code = B/C Ratio) 8 6-25 [facility]2015-12-18 10:58:00 Test Item Value Reference Range Interpretation Comments Globulin (test code = Globulin) 2.6 2.0-4.0 [facility]2015-12-18 10:58:00 Test Item Value Reference Range Interpretation Comments A/G Ratio (test code = A/G Ratio) 1.2 0.7-1.6 [facility]2015-12-18 10:58:00 Test Item Value Reference Range Interpretation Comments AGAP (test code = AGAP) 13.0 10.0-20.0 [facility]ownXvxkydnPAIQZISUBZ0464-51-40 10:58:00 Test Item Value Reference Range Interpretation Comments Segs (test code = Segs) 74.2 45.0-75.0 [facility]ptownQxajcglCNZGQPCCKD3336-91-99 10:58:00 Test Item Value Reference Range Interpretation Comments Lymphocytes (test code = Lymphocytes) 18.3 20.0-40.0 [facility]ptownEemzrvpHVHYSNXIEG5630-68-25 10:58:00 Test Item Value Reference Range Interpretation Comments Monocytes (test code = Monocytes) 7.0 2.0-12.0 [facility]ptownKejdiqpAKMPZYSEJW4887-83-80 10:58:00 Test Item Value Reference Range Interpretation Comments Basophils (test code = 0.3 See_Comment [Aut omated message] The Basophils) system which ge nerated this result tra nsmitted reference range : <=1.0. The reference r kat was not used to int erpret this result as normal/abnormal . [facility]ownXfaeblgSHYGRYDXXT7732-95-84 10:58:00 Test Item Value Reference Range Interpretation Comments Segs-Bands # (test code = Segs-Bands #) 8.1 1.5-8.1 [facility] UptownOjiluneUFOUWQVEAU4505-15-23 10:58:00 Test Item Value Reference Range Interpretation Comments Eosinophils (test code = 0.2 See_Comment [A utomated message] The Eosinophils) system which ge nerated this result tra nsmitted reference range : <=4.0. The reference r kat was not used to int erpret this result as normal/abnormal . [facility]ptownDkpbfrpGBTUZVDMBA8524-25-95 10:58:00 Test Item Value Reference Range Interpretation Comments Monocytes # (test code 0.8 See_Comment [Aut omated message] The = Monocytes #) system which generated this result tra nsmitted reference range : <=0.8. The reference r kat was not used to int erpret this result as normal/abnormal . [facility] UptownHmncpboCWKNBAMWZO2075-07-14 10:58:00 Test Item Value Reference Range Interpretation Comments Lymphocytes # (test code = Lymphocytes 2.0 1.0-5.5 #) [facility]ownQosjgdtBPAMNRACNK5836-30-03 10:58:00 Test Item Value Reference Range Interpretation Comments Microcyte (test code = 1+ *ABN*(08/16/15 Microcyte) 4:58 AM) [facility]ptownBaitxtuMXDTQMTXHP3349-69-83 10:58:00 Test Item Value Reference Range Interpretation Comments MPV (test code = MPV) 8.9 7.4-10.4 [facility] UptownYcwnnxfERZPZZFGLL8292-55-40 10:58:00 Test Item Value Reference Range Interpretation Comments MCV (test code = MCV) 77.3 80.0-98.0 [facility]ptownXpjnyjjWPVAKOZHZL4806-22-79 10:58:00 Test Item Value Reference Range Interpretation Comments Hgb (test code = Hgb) 11.9 12.0-16.0 [facility] UptownVrcppmkOBKPIEDYLC5737-01-81 10:58:00 Test Item Value Reference Range Interpretation Comments Hct (test code = Hct) 37.5 36.0-48.0 [facility]ptownQfctxchMOEQBMTLLN9924-58-91 10:58:00 Test Item Value Reference Range Interpretation Comments MCH (test code = MCH) 24.5 pg 27.0-31.0 [facility] UptownXrdlwihJEYFGMJVVV0145-02-57 10:58:00 Test Item Value Reference Range Interpretation Comments RBC (test code = RBC) 4.85 4.20-5.40 [facility]ownPejkzbbXVGHSOQZAB6241-53-14 10:58:00 Test Item Value Reference Range Interpretation Comments WBC (test code = WBC) 10.9 3.7-10.4 [facility] UptownRnyrsjaTRSSBWADDZ8509-17-27 10:58:00 Test Item Value Reference Range Interpretation Comments RDW (test code = RDW) 15.9 11.5-14.5 [facility] UptownTkesuckZYLVVZYFAP5808-50-27 10:58:00 Test Item Value Reference Range Interpretation Comments MCHC (test code = MCHC) 31.7 32.0-36.0 [facility] UptownZunqptuXEPGPOOPCZ1430-54-98 10:58:00 Test Item Value Reference Range Interpretation Comments Platelet (test code = Platelet) 242 133-450 [facility]2015-12-18 10:58:00 Test Item Value Reference Range Interpretation Comments eGFR (test code = eGFR) 126 [facility]2015-12-18 10:58:00 Test Item Value Reference Range Interpretation Comments AST (test code = AST) 29 See_Comment [Auto mated message] The system which ge nerated this result transmit arvind reference range : <=37. The reference range was not used to interpr et this result as mario l/abnormal. [facility]2015-12-18 10:58:00 Test Item Value Reference Range Interpretation Comments Alk Phos (test code = Alk Phos) 86 39-136 [facility]2015-12-18 10:58:00 Test Item Value Reference Range Interpretation Comments Bili Total (test code = Bili Total) 0.3 0.2-1.3 [facility]2015-12-18 10:58:00 Test Item Value Reference Range Interpretation Comments ALT (test code = ALT) 50 See_Comment [Auto mated message] The system which ge nerated this result transmit arvind reference range : <=65. The reference range was not used to interpr et this result as mario l/abnormal. [facility]2015-12-18 10:58:00 Test Item Value Reference Range Interpretation Comments Sodium Lvl (test code = Sodium Lvl) 136 135-145 [facility]2015-12-18 10:58:00 Test Item Value Reference Range Interpretation Comments Potassium Lvl (test code = Potassium 4.0 3.5-5.1 Lvl) [facility]2015-12-18 10:58:00 Test Item Value Reference Range Interpretation Comments Creatinine Lvl (test code = Creatinine 0.62 0.50-1.40 Lvl) [facility]2015-12-18 10:58:00 Test Item Value Reference Range Interpretation Comments Glucose Lvl (test code = Glucose Lvl) 101 70-99 [facility]2015-12-18 10:58:00 Test Item Value Reference Range Interpretation Comments BUN (test code = BUN) 5 7-22 [facility]2015-12-18 10:58:00 Test Item Value Reference Range Interpretation Comments Total Protein (test code = Total 5.8 6.4-8.4 Protein) [facility]2015-12-18 10:58:00 Test Item Value Reference Range Interpretation Comments Albumin Lvl (test code = Albumin Lvl) 3.2 3.5-5.0 [facility]2015-12-18 10:58:00 Test Item Value Reference Range Interpretation Comments Chloride Lvl (test code = Chloride Lvl) 100 95-109 [facility]2015-12-18 10:58:00 Test Item Value Reference Range Interpretation Comments Calcium Lvl (test code = Calcium Lvl) 8.6 8.5-10.5 [facility]2015-12-18 10:58:00 Test Item Value Reference Range Interpretation Comments CO2 (test code = CO2) 27 24-32 [facility]2015-12-18 10:58:00 Test Item Value Reference Range Interpretation Comments B/C Ratio (test code = B/C Ratio) 8 6-25 [facility]2015-12-18 10:58:00 Test Item Value Reference Range Interpretation Comments Globulin (test code = Globulin) 2.6 2.0-4.0 [facility]2015-12-18 10:58:00 Test Item Value Reference Range Interpretation Comments A/G Ratio (test code = A/G Ratio) 1.2 0.7-1.6 [facility]2015-12-18 10:58:00 Test Item Value Reference Range Interpretation Comments AGAP (test code = AGAP) 13.0 10.0-20.0 [facility] [facility]ownVydtiylIXZNHCEXMK4145-35-87 10:58:00 Test Item Value Reference Range Interpretation Comments Segs (test code = Segs) 74.2 45.0-75.0 [facility]ptownBlukxasTIPWEBMRLN8987-40-16 10:58:00 Test Item Value Reference Range Interpretation Comments Lymphocytes (test code = Lymphocytes) 18.3 20.0-40.0 [facility] UptownDyzgnncKHFYEOIWZQ7599-38-28 10:58:00 Test Item Value Reference Range Interpretation Comments Monocytes (test code = Monocytes) 7.0 2.0-12.0 [facility] UptownIqlaguaJJDUOHJUVI0447-59-76 10:58:00 Test Item Value Reference Range Interpretation Comments Basophils (test code = 0.3 See_Comment [Aut omated message] The Basophils) system which ge nerated this result tra nsmitted reference range : <=1.0. The reference r kat was not used to int erpret this result as normal/abnormal . [facility] UptownGuxkhknBDPHTAEEXD4576-92-79 10:58:00 Test Item Value Reference Range Interpretation Comments Segs-Bands # (test code = Segs-Bands #) 8.1 1.5-8.1 [facility]ptownMxacdfkQPYKMGILIU5146-31-27 10:58:00 Test Item Value Reference Range Interpretation Comments Eosinophils (test code = 0.2 See_Comment [A utomated message] The Eosinophils) system which ge nerated this result tra nsmitted reference range : <=4.0. The reference r kat was not used to int erpret this result as normal/abnormal . [place] 733975-12-18 10:58:00 Test Item Value Reference Range Interpretation Comments Monocytes # (test code 0.8 See_Comment [Aut omated message] The = Monocytes #) system which generated this result tra nsmitted reference range : <=0.8. The reference r kat was not used to int erpret this result as normal/abnormal . [facility] UptownKecqoieZJCMGAVYMR7409-35-82 10:58:00 Test Item Value Reference Range Interpretation Comments Lymphocytes # (test code = Lymphocytes 2.0 1.0-5.5 #) [facility]ptownAwuekkxSSGTSEOTMP5668-98-32 10:58:00 Test Item Value Reference Range Interpretation Comments Microcyte (test code = 1+ *ABN*(08/16/15 Microcyte) 4:58 AM) [facility]ptownFawqgdhACRQIBWIEH0353-34-37 10:58:00 Test Item Value Reference Range Interpretation Comments MPV (test code = MPV) 8.9 7.4-10.4 [facility] UptownQdatjsdFNIZPUREJF1612-40-84 10:58:00 Test Item Value Reference Range Interpretation Comments MCV (test code = MCV) 77.3 80.0-98.0 [facility] UptownAnsowszRBTTGMOFHR7196-80-26 10:58:00 Test Item Value Reference Range Interpretation Comments Hgb (test code = Hgb) 11.9 12.0-16.0 [facility]ptownYdcbhfaDGLSONEFPJ6677-22-79 10:58:00 Test Item Value Reference Range Interpretation Comments Hct (test code = Hct) 37.5 36.0-48.0 [facility] UptownAoqpmyuUTKHRESUIJ0384-45-22 10:58:00 Test Item Value Reference Range Interpretation Comments MCH (test code = MCH) 24.5 pg 27.0-31.0 [facility] UptownWselqzsDZFLRSMXIL2448-81-61 10:58:00 Test Item Value Reference Range Interpretation Comments RBC (test code = RBC) 4.85 4.20-5.40 [facility]ptownStzawofDGAJRNSVJX6592-92-50 10:58:00 Test Item Value Reference Range Interpretation Comments WBC (test code = WBC) 10.9 3.7-10.4 [facility] UptownZhnioahRADXRPTYJO4966-08-51 10:58:00 Test Item Value Reference Range Interpretation Comments RDW (test code = RDW) 15.9 11.5-14.5 [place] 733975-12-18 10:58:00 Test Item Value Reference Range Interpretation Comments MCHC (test code = MCHC) 31.7 32.0-36.0 [facility]ptownEknsgrlUSORFFOMJY0285-89-20 10:58:00 Test Item Value Reference Range Interpretation Comments Platelet (test code = Platelet) 242 133-450 [facility]2015-12-18 10:58:00 Test Item Value Reference Range Interpretation Comments eGFR (test code = eGFR) 126 [facility]2015-12-18 10:58:00 Test Item Value Reference Range Interpretation Comments AST (test code = AST) 29 See_Comment [Auto mated message] The system which ge nerated this result transmit arvind reference range : <=37. The reference range was not used to interpr et this result as mario l/abnormal. [facility]2015-12-18 10:58:00 Test Item Value Reference Range Interpretation Comments Alk Phos (test code = Alk Phos) 86 39-136 [facility]2015-12-18 10:58:00 Test Item Value Reference Range Interpretation Comments Bili Total (test code = Bili Total) 0.3 0.2-1.3 [facility]2015-12-18 10:58:00 Test Item Value Reference Range Interpretation Comments ALT (test code = ALT) 50 See_Comment [Auto mated message] The system which ge nerated this result transmit arvind reference range : <=65. The reference range was not used to interpr et this result as mario l/abnormal. [facility]2015-12-18 10:58:00 Test Item Value Reference Range Interpretation Comments Sodium Lvl (test code = Sodium Lvl) 136 135-145 [facility]2015-12-18 10:58:00 Test Item Value Reference Range Interpretation Comments Potassium Lvl (test code = Potassium 4.0 3.5-5.1 Lvl) [facility]2015-12-18 10:58:00 Test Item Value Reference Range Interpretation Comments Creatinine Lvl (test code = Creatinine 0.62 0.50-1.40 Lvl) [facility]2015-12-18 10:58:00 Test Item Value Reference Range Interpretation Comments Glucose Lvl (test code = Glucose Lvl) 101 70-99 [place] 203065-12-18 10:58:00 Test Item Value Reference Range Interpretation Comments BUN (test code = BUN) 5 7-22 [facility]2015-12-18 10:58:00 Test Item Value Reference Range Interpretation Comments Total Protein (test code = Total 5.8 6.4-8.4 Protein) [facility]2015-12-18 10:58:00 Test Item Value Reference Range Interpretation Comments Albumin Lvl (test code = Albumin Lvl) 3.2 3.5-5.0 [facility]2015-12-18 10:58:00 Test Item Value Reference Range Interpretation Comments Chloride Lvl (test code = Chloride Lvl) 100 95-109 [facility]2015-12-18 10:58:00 Test Item Value Reference Range Interpretation Comments Calcium Lvl (test code = Calcium Lvl) 8.6 8.5-10.5 [facility]2015-12-18 10:58:00 Test Item Value Reference Range Interpretation Comments CO2 (test code = CO2) 27 24-32 [facility]2015-12-18 10:58:00 Test Item Value Reference Range Interpretation Comments B/C Ratio (test code = B/C Ratio) 8 6-25 [facility]2015-12-18 10:58:00 Test Item Value Reference Range Interpretation Comments Globulin (test code = Globulin) 2.6 2.0-4.0 [facility]2015-12-18 10:58:00 Test Item Value Reference Range Interpretation Comments A/G Ratio (test code = A/G Ratio) 1.2 0.7-1.6 [facility]2015-12-18 10:58:00 Test Item Value Reference Range Interpretation Comments AGAP (test code = AGAP) 13.0 10.0-20.0 [facility] UptownGkgvyadLIVEOTUALD8801-81-08 10:58:00 Test Item Value Reference Range Interpretation Comments Segs (test code = Segs) 74.2 45.0-75.0 [facility]ptownMjdlbjvWPQKCXBNWC0325-92-93 10:58:00 Test Item Value Reference Range Interpretation Comments Lymphocytes (test code = Lymphocytes) 18.3 20.0-40.0 [facility]ptownWoxwwpnLYWEGHJVKP8165-29-52 10:58:00 Test Item Value Reference Range Interpretation Comments Monocytes (test code = Monocytes) 7.0 2.0-12.0 [facility] UptownBdlelqfNWKLWNZLVX9444-20-95 10:58:00 Test Item Value Reference Range Interpretation Comments Basophils (test code = 0.3 See_Comment [Aut omated message] The Basophils) system which ge nerated this result tra nsmitted reference range : <=1.0. The reference r kat was not used to int erpret this result as normal/abnormal . [facility] UptownHyolrfuJIXYHDEDFF1090-06-92 10:58:00 Test Item Value Reference Range Interpretation Comments Segs-Bands # (test code = Segs-Bands #) 8.1 1.5-8.1 [facility] UptownCujtesqGYAVWACBPR3913-19-65 10:58:00 Test Item Value Reference Range Interpretation Comments Eosinophils (test code = 0.2 See_Comment [A utomated message] The Eosinophils) system which ge nerated this result tra nsmitted reference range : <=4.0. The reference r kat was not used to int erpret this result as normal/abnormal . [facility]ptownXgaudteTVWNHWUCKP6040-38-94 10:58:00 Test Item Value Reference Range Interpretation Comments Monocytes # (test code 0.8 See_Comment [Aut omated message] The = Monocytes #) system which generated this result tra nsmitted reference range : <=0.8. The reference r kat was not used to int erpret this result as normal/abnormal . [facility]ptownQmazitpDVJBBYFQQB5000-72-61 10:58:00 Test Item Value Reference Range Interpretation Comments Lymphocytes # (test code = Lymphocytes 2.0 1.0-5.5 #) [facility]ownMaaupbhVSTFLKQXCD6921-71-33 10:58:00 Test Item Value Reference Range Interpretation Comments Microcyte (test code = 1+ *ABN*(08/16/15 Microcyte) 4:58 AM) [facility]ptownCfjqvinETBQOJOKWS3065-18-09 10:58:00 Test Item Value Reference Range Interpretation Comments MPV (test code = MPV) 8.9 7.4-10.4 [facility] UptownGrdvqvrLFAWUBDHPJ8506-61-78 10:58:00 Test Item Value Reference Range Interpretation Comments MCV (test code = MCV) 77.3 80.0-98.0 [facility]ptownVvwomxvKEUALKLPAS4498-33-89 10:58:00 Test Item Value Reference Range Interpretation Comments Hgb (test code = Hgb) 11.9 12.0-16.0 [facility]ptownNgjqqncYXJSZMUPJK8442-64-25 10:58:00 Test Item Value Reference Range Interpretation Comments Hct (test code = Hct) 37.5 36.0-48.0 [facility]ptownCeywuzqONKYCLLWCV5456-39-24 10:58:00 Test Item Value Reference Range Interpretation Comments MCH (test code = MCH) 24.5 pg 27.0-31.0 [facility]ptownMawxegvVWIIPPKOPO5690-54-22 10:58:00 Test Item Value Reference Range Interpretation Comments RBC (test code = RBC) 4.85 4.20-5.40 [facility] UptownZnsgtcySJUXJGIQXU1338-68-03 10:58:00 Test Item Value Reference Range Interpretation Comments WBC (test code = WBC) 10.9 3.7-10.4 [facility] UptownItccnsnCPJFLNKCDK7595-38-99 10:58:00 Test Item Value Reference Range Interpretation Comments RDW (test code = RDW) 15.9 11.5-14.5 [facility] UptownEfrnfdeYXEPWPBVKD7711-66-75 10:58:00 Test Item Value Reference Range Interpretation Comments MCHC (test code = MCHC) 31.7 32.0-36.0 [facility] UptownFmqiifeYSHZMSYSCC1479-12-07 10:58:00 Test Item Value Reference Range Interpretation Comments Platelet (test code = Platelet) 242 133-450 [facility]2015-12-18 10:58:00 Test Item Value Reference Range Interpretation Comments eGFR (test code = eGFR) 126 [facility]2015-12-18 10:58:00 Test Item Value Reference Range Interpretation Comments AST (test code = AST) 29 See_Comment [Auto mated message] The system which ge nerated this result transmit arvind reference range : <=37. The reference range was not used to interpr et this result as mario l/abnormal. [facility]2015-12-18 10:58:00 Test Item Value Reference Range Interpretation Comments Alk Phos (test code = Alk Phos) 86 39-136 [facility]2015-12-18 10:58:00 Test Item Value Reference Range Interpretation Comments Bili Total (test code = Bili Total) 0.3 0.2-1.3 [place] 203065-12-18 10:58:00 Test Item Value Reference Range Interpretation Comments ALT (test code = ALT) 50 See_Comment [Auto mated message] The system which ge nerated this result transmit arvind reference range : <=65. The reference range was not used to interpr et this result as mario l/abnormal. [facility]2015-12-18 10:58:00 Test Item Value Reference Range Interpretation Comments Sodium Lvl (test code = Sodium Lvl) 136 135-145 [facility]2015-12-18 10:58:00 Test Item Value Reference Range Interpretation Comments Potassium Lvl (test code = Potassium 4.0 3.5-5.1 Lvl) [facility]2015-12-18 10:58:00 Test Item Value Reference Range Interpretation Comments Creatinine Lvl (test code = Creatinine 0.62 0.50-1.40 Lvl) [facility]2015-12-18 10:58:00 Test Item Value Reference Range Interpretation Comments Glucose Lvl (test code = Glucose Lvl) 101 70-99 [facility]2015-12-18 10:58:00 Test Item Value Reference Range Interpretation Comments BUN (test code = BUN) 5 7-22 [facility]2015-12-18 10:58:00 Test Item Value Reference Range Interpretation Comments Total Protein (test code = Total 5.8 6.4-8.4 Protein) [facility]2015-12-18 10:58:00 Test Item Value Reference Range Interpretation Comments Albumin Lvl (test code = Albumin Lvl) 3.2 3.5-5.0 [facility]2015-12-18 10:58:00 Test Item Value Reference Range Interpretation Comments Chloride Lvl (test code = Chloride Lvl) 100 95-109 [facility]2015-12-18 10:58:00 Test Item Value Reference Range Interpretation Comments Calcium Lvl (test code = Calcium Lvl) 8.6 8.5-10.5 [facility]2015-12-18 10:58:00 Test Item Value Reference Range Interpretation Comments CO2 (test code = CO2) 27 24-32 [facility]2015-12-18 10:58:00 Test Item Value Reference Range Interpretation Comments B/C Ratio (test code = B/C Ratio) 8 6-25 [facility]2015-12-18 10:58:00 Test Item Value Reference Range Interpretation Comments Globulin (test code = Globulin) 2.6 2.0-4.0 [facility]2015-12-18 10:58:00 Test Item Value Reference Range Interpretation Comments A/G Ratio (test code = A/G Ratio) 1.2 0.7-1.6 [facility]2015-12-18 10:58:00 Test Item Value Reference Range Interpretation Comments AGAP (test code = AGAP) 13.0 10.0-20.0 [facility]ptownWbaksmzPQSBHXPISO0429-74-18 10:58:00 Test Item Value Reference Range Interpretation Comments Segs (test code = Segs) 74.2 45.0-75.0 [facility] UptownVfkmbbaRJNHFKMWIO3698-54-86 10:58:00 Test Item Value Reference Range Interpretation Comments Lymphocytes (test code = Lymphocytes) 18.3 20.0-40.0 [facility] UptownXqewmrsNCZKTNTKDJ9940-36-39 10:58:00 Test Item Value Reference Range Interpretation Comments Monocytes (test code = Monocytes) 7.0 2.0-12.0 [facility] UptownFsgdvisRHVFIOKEYG1812-65-00 10:58:00 Test Item Value Reference Range Interpretation Comments Basophils (test code = 0.3 See_Comment [Aut omated message] The Basophils) system which ge nerated this result tra nsmitted reference range : <=1.0. The reference r kat was not used to int erpret this result as normal/abnormal . [facility]ptownEgtmrbaMKZGHLZSTL9329-97-36 10:58:00 Test Item Value Reference Range Interpretation Comments Segs-Bands # (test code = Segs-Bands #) 8.1 1.5-8.1 [facility] UptownTqjrbpnXOWXONWKIT3523-46-77 10:58:00 Test Item Value Reference Range Interpretation Comments Eosinophils (test code = 0.2 See_Comment [A utomated message] The Eosinophils) system which ge nerated this result tra nsmitted reference range : <=4.0. The reference r kat was not used to int erpret this result as normal/abnormal . [facility] UptownZbbyqurJMKQJSVZQW5297-06-67 10:58:00 Test Item Value Reference Range Interpretation Comments Monocytes # (test code 0.8 See_Comment [Aut omated message] The = Monocytes #) system which generated this result tra nsmitted reference range : <=0.8. The reference r kat was not used to int erpret this result as normal/abnormal . [facility] UptownRjihmioFJADDCODVT8404-93-48 10:58:00 Test Item Value Reference Range Interpretation Comments Lymphocytes # (test code = Lymphocytes 2.0 1.0-5.5 #) [facility] UptownYzdtuifARBSQGSMYU3533-61-63 10:58:00 Test Item Value Reference Range Interpretation Comments Microcyte (test code = 1+ *ABN*(08/16/15 Microcyte) 4:58 AM) [facility]ptownTtwlzqcDNGCGVFRQN4709-96-26 10:58:00 Test Item Value Reference Range Interpretation Comments MPV (test code = MPV) 8.9 7.4-10.4 [facility] UptownMprurkyERLLLELXGL3997-60-47 10:58:00 Test Item Value Reference Range Interpretation Comments MCV (test code = MCV) 77.3 80.0-98.0 [facility] UptownOmkllvyGKAZONIEBR0702-42-74 10:58:00 Test Item Value Reference Range Interpretation Comments Hgb (test code = Hgb) 11.9 12.0-16.0 [facility] UptownTpgaliaCFZWMTNJEE4017-71-79 10:58:00 Test Item Value Reference Range Interpretation Comments Hct (test code = Hct) 37.5 36.0-48.0 [facility] UptownJwyenrtTFDUMCNBNH0341-30-31 10:58:00 Test Item Value Reference Range Interpretation Comments MCH (test code = MCH) 24.5 pg 27.0-31.0 [facility] UptownTowxchxPNQSYPFGYZ8311-65-97 10:58:00 Test Item Value Reference Range Interpretation Comments RBC (test code = RBC) 4.85 4.20-5.40 [facility] UptownXetowssULEIWWZMMV7231-27-79 10:58:00 Test Item Value Reference Range Interpretation Comments WBC (test code = WBC) 10.9 3.7-10.4 [facility]ptownCevpxruMKMQJJGVTJ8052-05-30 10:58:00 Test Item Value Reference Range Interpretation Comments RDW (test code = RDW) 15.9 11.5-14.5 [facility] UptownLvieubcKEBIYYPGWS1624-85-21 10:58:00 Test Item Value Reference Range Interpretation Comments MCHC (test code = MCHC) 31.7 32.0-36.0 [facility]ur[facility]rmGALJNNHLZP3081-56-58 10:58:00 Test Item Value Reference Range Interpretation Comments Platelet (test code = Platelet) 242 133-450 [facility]2015-12-18 10:58:00 Test Item Value Reference Range Interpretation Comments eGFR (test code = eGFR) 126 [facility]2015-12-18 10:58:00 Test Item Value Reference Range Interpretation Comments AST (test code = AST) 29 See_Comment [Auto mated message] The system which ge nerated this result transmit arvind reference range : <=37. The reference range was not used to interpr et this result as mario l/abnormal. [facility]2015-12-18 10:58:00 Test Item Value Reference Range Interpretation Comments Alk Phos (test code = Alk Phos) 86 39-136 [facility]2015-12-18 10:58:00 Test Item Value Reference Range Interpretation Comments Bili Total (test code = Bili Total) 0.3 0.2-1.3 [facility]2015-12-18 10:58:00 Test Item Value Reference Range Interpretation Comments ALT (test code = ALT) 50 See_Comment [Auto mated message] The system which ge nerated this result transmit arvind reference range : <=65. The reference range was not used to interpr et this result as maroi l/abnormal. [facility]2015-12-18 10:58:00 Test Item Value Reference Range Interpretation Comments Sodium Lvl (test code = Sodium Lvl) 136 135-145 [facility]2015-12-18 10:58:00 Test Item Value Reference Range Interpretation Comments Potassium Lvl (test code = Potassium 4.0 3.5-5.1 Lvl) [facility]2015-12-18 10:58:00 Test Item Value Reference Range Interpretation Comments Creatinine Lvl (test code = Creatinine 0.62 0.50-1.40 Lvl) [facility]2015-12-18 10:58:00 Test Item Value Reference Range Interpretation Comments Glucose Lvl (test code = Glucose Lvl) 101 70-99 [facility]2015-12-18 10:58:00 Test Item Value Reference Range Interpretation Comments BUN (test code = BUN) 5 7-22 [facility]2015-12-18 10:58:00 Test Item Value Reference Range Interpretation Comments Total Protein (test code = Total 5.8 6.4-8.4 Protein) [facility]2015-12-18 10:58:00 Test Item Value Reference Range Interpretation Comments Albumin Lvl (test code = Albumin Lvl) 3.2 3.5-5.0 [facility]2015-12-18 10:58:00 Test Item Value Reference Range Interpretation Comments Chloride Lvl (test code = Chloride Lvl) 100 95-109 [facility]2015-12-18 10:58:00 Test Item Value Reference Range Interpretation Comments Calcium Lvl (test code = Calcium Lvl) 8.6 8.5-10.5 [facility]2015-12-18 10:58:00 Test Item Value Reference Range Interpretation Comments CO2 (test code = CO2) 27 24-32 [facility]2015-12-18 10:58:00 Test Item Value Reference Range Interpretation Comments B/C Ratio (test code = B/C Ratio) 8 6-25 [facility]2015-12-18 10:58:00 Test Item Value Reference Range Interpretation Comments Globulin (test code = Globulin) 2.6 2.0-4.0 [facility]2015-12-18 10:58:00 Test Item Value Reference Range Interpretation Comments A/G Ratio (test code = A/G Ratio) 1.2 0.7-1.6 [facility]2015-12-18 10:58:00 Test Item Value Reference Range Interpretation Comments AGAP (test code = AGAP) 13.0 10.0-20.0 [facility]ownZgzvupgHYEFCTSTEG9584-98-74 10:58:00 Test Item Value Reference Range Interpretation Comments Segs (test code = Segs) 74.2 45.0-75.0 [facility]ptownPoaowvaJQTXGEANKD6781-78-38 10:58:00 Test Item Value Reference Range Interpretation Comments Lymphocytes (test code = Lymphocytes) 18.3 20.0-40.0 [facility]ptownXwldbrxNHMABORUEF5856-57-94 10:58:00 Test Item Value Reference Range Interpretation Comments Monocytes (test code = Monocytes) 7.0 2.0-12.0 [facility]2015-12-18 10:58:00 Test Item Value Reference Range Interpretation Comments eGFR (test code = eGFR) 126 [facility]ownMkrsojkYLPZTKMHXD3555-09-89 10:58:00 Test Item Value Reference Range Interpretation Comments Basophils (test code = 0.3 See_Comment [Aut omated message] The Basophils) system which ge nerated this result tra nsmitted reference range : <=1.0. The reference r kat was not used to int erpret this result as normal/abnormal . [facility] UptownBitmsnkSNONQTCGKO2569-29-91 10:58:00 Test Item Value Reference Range Interpretation Comments Segs-Bands # (test code = Segs-Bands #) 8.1 1.5-8.1 [facility] UptownGtpbtvpLFMBFMGOGX8396-09-95 10:58:00 Test Item Value Reference Range Interpretation Comments Eosinophils (test code = 0.2 See_Comment [A utomated message] The Eosinophils) system which ge nerated this result tra nsmitted reference range : <=4.0. The reference r kat was not used to int erpret this result as normal/abnormal . [facility]PgvxmbrRGJAFORWAY2003-[facility] 10:58:00 Test Item Value Reference Range Interpretation Comments Monocytes # (test code 0.8 See_Comment [Aut omated message] The = Monocytes #) system which generated this result tra nsmitted reference range : <=0.8. The reference r kat was not used to int erpret this result as normal/abnormal . [facility]ptownGuzutunDSITHXEYBT1024-11-40 10:58:00 Test Item Value Reference Range Interpretation Comments Lymphocytes # (test code = Lymphocytes 2.0 1.0-5.5 #) [facility]ptownGeolkalEKNGXCFNTC7864-89-90 10:58:00 Test Item Value Reference Range Interpretation Comments Microcyte (test code = 1+ *ABN*(08/16/15 Microcyte) 4:58 AM) [facility]ptownIsxsqxeQXDNSPTEBS7151-60-50 10:58:00 Test Item Value Reference Range Interpretation Comments MPV (test code = MPV) 8.9 7.4-10.4 [facility]ptownJhgggvyEPLSVPLQTD0258-65-25 10:58:00 Test Item Value Reference Range Interpretation Comments MCV (test code = MCV) 77.3 80.0-98.0 [place] 733975-12-18 10:58:00 Test Item Value Reference Range Interpretation Comments Hgb (test code = Hgb) 11.9 12.0-16.0 [facility]ptownDlucfymQYKFNIIYEF2034-29-98 10:58:00 Test Item Value Reference Range Interpretation Comments Hct (test code = Hct) 37.5 36.0-48.0 [facility]2015-12-18 10:58:00 Test Item Value Reference Range Interpretation Comments AST (test code = AST) 29 See_Comment [Auto mated message] The system which ge nerated this result transmit arvind reference range : <=37. The reference range was not used to interpr et this result as mario l/abnormal. [facility] UptownSweucemQBRYLLKBSI7193-58-07 10:58:00 Test Item Value Reference Range Interpretation Comments MCH (test code = MCH) 24.5 pg 27.0-31.0 [facility]ptownVpnmjkuKFAVBFVAKB1515-49-86 10:58:00 Test Item Value Reference Range Interpretation Comments RBC (test code = RBC) 4.85 4.20-5.40 [facility] UptownUzewmerHTJNSAJCPY3830-43-13 10:58:00 Test Item Value Reference Range Interpretation Comments WBC (test code = WBC) 10.9 3.7-10.4 [facility]ptownQhcbczjXRCHXDPRIB2100-98-58 10:58:00 Test Item Value Reference Range Interpretation Comments RDW (test code = RDW) 15.9 11.5-14.5 [facility]ptownCnbjgqeMKZEMVAHUR5614-10-41 10:58:00 Test Item Value Reference Range Interpretation Comments MCHC (test code = MCHC) 31.7 32.0-36.0 [facility] UptownIpqloqaMWZESGDQLZ3567-22-29 10:58:00 Test Item Value Reference Range Interpretation Comments Platelet (test code = Platelet) 242 133-450 [facility]2015-12-18 10:58:00 Test Item Value Reference Range Interpretation Comments Alk Phos (test code = Alk Phos) 86 39-136 [facility]2015-12-18 10:58:00 Test Item Value Reference Range Interpretation Comments Bili Total (test code = Bili Total) 0.3 0.2-1.3 [facility]2015-12-18 10:58:00 Test Item Value Reference Range Interpretation Comments ALT (test code = ALT) 50 See_Comment [Auto mated message] The system which ge nerated this result transmit arvind reference range : <=65. The reference range was not used to interpr et this result as mario l/abnormal. [facility]2015-12-18 10:58:00 Test Item Value Reference Range Interpretation Comments Sodium Lvl (test code = Sodium Lvl) 136 135-145 [facility]2015-12-18 10:58:00 Test Item Value Reference Range Interpretation Comments Potassium Lvl (test code = Potassium 4.0 3.5-5.1 Lvl) [facility]2015-12-18 10:58:00 Test Item Value Reference Range Interpretation Comments Creatinine Lvl (test code = Creatinine 0.62 0.50-1.40 Lvl) [facility]2015-12-18 10:58:00 Test Item Value Reference Range Interpretation Comments Glucose Lvl (test code = Glucose Lvl) 101 70-99 [facility]2015-12-18 10:58:00 Test Item Value Reference Range Interpretation Comments BUN (test code = BUN) 5 7-22 [facility]2015-12-18 10:58:00 Test Item Value Reference Range Interpretation Comments Total Protein (test code = Total 5.8 6.4-8.4 Protein) [facility]2015-12-18 10:58:00 Test Item Value Reference Range Interpretation Comments Albumin Lvl (test code = Albumin Lvl) 3.2 3.5-5.0 [facility]2015-12-18 10:58:00 Test Item Value Reference Range Interpretation Comments Chloride Lvl (test code = Chloride Lvl) 100 95-109 [facility]2015-12-18 10:58:00 Test Item Value Reference Range Interpretation Comments Calcium Lvl (test code = Calcium Lvl) 8.6 8.5-10.5 [facility]2015-12-18 10:58:00 Test Item Value Reference Range Interpretation Comments CO2 (test code = CO2) 27 24-32 [facility]2015-12-18 10:58:00 Test Item Value Reference Range Interpretation Comments B/C Ratio (test code = B/C Ratio) 8 6-25 [facility]2015-12-18 10:58:00 Test Item Value Reference Range Interpretation Comments Globulin (test code = Globulin) 2.6 2.0-4.0 [facility]2015-12-18 10:58:00 Test Item Value Reference Range Interpretation Comments A/G Ratio (test code = A/G Ratio) 1.2 0.7-1.6 [facility]2015-12-18 10:58:00 Test Item Value Reference Range Interpretation Comments AGAP (test code = AGAP) 13.0 10.0-20.0 [facility]ptownSgbxonxOWSDUHMTTQ5416-47-05 10:58:00 Test Item Value Reference Range Interpretation Comments Segs (test code = Segs) 74.2 45.0-75.0 [facility] UptownGxweailBGDXPXTVYP5083-46-56 10:58:00 Test Item Value Reference Range Interpretation Comments Lymphocytes (test code = Lymphocytes) 18.3 20.0-40.0 [facility] UptownOedhcljAYTSJLZPXZ7866-04-43 10:58:00 Test Item Value Reference Range Interpretation Comments Monocytes (test code = Monocytes) 7.0 2.0-12.0 [facility] UptownSdhxeuuFKSLNOSKAG4485-01-26 10:58:00 Test Item Value Reference Range Interpretation Comments Basophils (test code = 0.3 See_Comment [Aut omated message] The Basophils) system which ge nerated this result tra nsmitted reference range : <=1.0. The reference r kat was not used to int erpret this result as normal/abnormal . [facility] UptownRrfuytoUTBRCMUGQZ8428-62-09 10:58:00 Test Item Value Reference Range Interpretation Comments Segs-Bands # (test code = Segs-Bands #) 8.1 1.5-8.1 [facility] UptownKpdyhrbICQCDGIHLM2084-79-37 10:58:00 Test Item Value Reference Range Interpretation Comments Eosinophils (test code = 0.2 See_Comment [A utomated message] The Eosinophils) system which ge nerated this result tra nsmitted reference range : <=4.0. The reference r kat was not used to int erpret this result as normal/abnormal . [facility] UptownHihspzgZYYNZXXNWP4826-16-94 10:58:00 Test Item Value Reference Range Interpretation Comments Monocytes # (test code 0.8 See_Comment [Aut omated message] The = Monocytes #) system which generated this result tra nsmitted reference range : <=0.8. The reference r kat was not used to int erpret this result as normal/abnormal . [facility]ptownGvdmuumCYQYHUCLNQ3952-63-46 10:58:00 Test Item Value Reference Range Interpretation Comments Lymphocytes # (test code = Lymphocytes 2.0 1.0-5.5 #) [facility] UptownKplnuihAGGVRVEHJJ2718-35-56 10:58:00 Test Item Value Reference Range Interpretation Comments Microcyte (test code = 1+ *ABN*(08/16/15 Microcyte) 4:58 AM) [facility] UptownFlfutbmTYAJLCYIDX6033-90-51 10:58:00 Test Item Value Reference Range Interpretation Comments MPV (test code = MPV) 8.9 7.4-10.4 [facility] UptownHvwhaspILWZYXVJSK7144-86-44 10:58:00 Test Item Value Reference Range Interpretation Comments MCV (test code = MCV) 77.3 80.0-98.0 [facility] UptownKatzlxzEIWUAAHTWH8334-57-51 10:58:00 Test Item Value Reference Range Interpretation Comments Hgb (test code = Hgb) 11.9 12.0-16.0 [facility] UptownGgyqbdmDVMFBOIPRT8917-28-19 10:58:00 Test Item Value Reference Range Interpretation Comments Hct (test code = Hct) 37.5 36.0-48.0 [facility] UptownWziuwfrOKZFLECLED8646-99-70 10:58:00 Test Item Value Reference Range Interpretation Comments MCH (test code = MCH) 24.5 pg 27.0-31.0 [facility] UptownUtpfiwiGEDUHFLBIZ8956-47-08 10:58:00 Test Item Value Reference Range Interpretation Comments RBC (test code = RBC) 4.85 4.20-5.40 [facility] UptownFtvmvkwFEBIBUOZWL9919-67-59 10:58:00 Test Item Value Reference Range Interpretation Comments WBC (test code = WBC) 10.9 3.7-10.4 [facility] UptownSdngbahQYAHCEWZZG8197-95-53 10:58:00 Test Item Value Reference Range Interpretation Comments RDW (test code = RDW) 15.9 11.5-14.5 [facility] UptownDprskdzLBFQNWYWDQ2875-87-24 10:58:00 Test Item Value Reference Range Interpretation Comments MCHC (test code = MCHC) 31.7 32.0-36.0 [facility] UptownLvenrfwMKTWJZZZEY9815-32-31 10:58:00 Test Item Value Reference Range Interpretation Comments Platelet (test code = Platelet) 242 133-450 [facility]2015-12-18 10:58:00 Test Item Value Reference Range Interpretation Comments eGFR (test code = eGFR) 126 [facility]2015-12-18 10:58:00 Test Item Value Reference Range Interpretation Comments AST (test code = AST) 29 See_Comment [Auto mated message] The system which ge nerated this result transmit arvind reference range : <=37. The reference range was not used to interpr et this result as mario l/abnormal. [facility]2015-12-18 10:58:00 Test Item Value Reference Range Interpretation Comments Alk Phos (test code = Alk Phos) 86 39-136 [facility]2015-12-18 10:58:00 Test Item Value Reference Range Interpretation Comments Bili Total (test code = Bili Total) 0.3 0.2-1.3 [facility]2015-12-18 10:58:00 Test Item Value Reference Range Interpretation Comments ALT (test code = ALT) 50 See_Comment [Auto mated message] The system which ge nerated this result transmit arvind reference range : <=65. The reference range was not used to interpr et this result as mario l/abnormal. [facility]2015-12-18 10:58:00 Test Item Value Reference Range Interpretation Comments Sodium Lvl (test code = Sodium Lvl) 136 135-145 [facility]2015-12-18 10:58:00 Test Item Value Reference Range Interpretation Comments Potassium Lvl (test code = Potassium 4.0 3.5-5.1 Lvl) [facility]2015-12-18 10:58:00 Test Item Value Reference Range Interpretation Comments Creatinine Lvl (test code = Creatinine 0.62 0.50-1.40 Lvl) [facility]2015-12-18 10:58:00 Test Item Value Reference Range Interpretation Comments Glucose Lvl (test code = Glucose Lvl) 101 70-99 [facility]2015-12-18 10:58:00 Test Item Value Reference Range Interpretation Comments BUN (test code = BUN) 5 7-22 [facility]2015-12-18 10:58:00 Test Item Value Reference Range Interpretation Comments Total Protein (test code = Total 5.8 6.4-8.4 Protein) [facility]2015-12-18 10:58:00 Test Item Value Reference Range Interpretation Comments Albumin Lvl (test code = Albumin Lvl) 3.2 3.5-5.0 [facility]2015-12-18 10:58:00 Test Item Value Reference Range Interpretation Comments Chloride Lvl (test code = Chloride Lvl) 100 95-109 [facility]2015-12-18 10:58:00 Test Item Value Reference Range Interpretation Comments Calcium Lvl (test code = Calcium Lvl) 8.6 8.5-10.5 [facility]2015-12-18 10:58:00 Test Item Value Reference Range Interpretation Comments CO2 (test code = CO2) 27 24-32 [facility]2015-12-18 10:58:00 Test Item Value Reference Range Interpretation Comments B/C Ratio (test code = B/C Ratio) 8 6-25 [facility]2015-12-18 10:58:00 Test Item Value Reference Range Interpretation Comments Globulin (test code = Globulin) 2.6 2.0-4.0 [facility]2015-12-18 10:58:00 Test Item Value Reference Range Interpretation Comments A/G Ratio (test code = A/G Ratio) 1.2 0.7-1.6 [facility]2015-12-18 10:58:00 Test Item Value Reference Range Interpretation Comments AGAP (test code = AGAP) 13.0 10.0-20.0 [facility] UptownTartocfRZXASWOISW7887-86-04 10:58:00 Test Item Value Reference Range Interpretation Comments Segs (test code = Segs) 74.2 45.0-75.0 [facility]ptownThmnfpbYJOTLZQQZA3912-48-55 10:58:00 Test Item Value Reference Range Interpretation Comments Lymphocytes (test code = Lymphocytes) 18.3 20.0-40.0 [facility] UptownMsodkndGUCTYWKORT7236-75-45 10:58:00 Test Item Value Reference Range Interpretation Comments Monocytes (test code = Monocytes) 7.0 2.0-12.0 [facility]ptownSphzxftKNBLCFRBJC0997-76-32 10:58:00 Test Item Value Reference Range Interpretation Comments Basophils (test code = 0.3 See_Comment [Aut omated message] The Basophils) system which ge nerated this result tra nsmitted reference range : <=1.0. The reference r kat was not used to int erpret this result as normal/abnormal . [facility] UptownKluhtluZTRWHOXNVX9923-23-39 10:58:00 Test Item Value Reference Range Interpretation Comments Segs-Bands # (test code = Segs-Bands #) 8.1 1.5-8.1 [facility] UptownQpaxqmkZQJKEMEHTC7495-75-76 10:58:00 Test Item Value Reference Range Interpretation Comments Eosinophils (test code = 0.2 See_Comment [A utomated message] The Eosinophils) system which ge nerated this result tra nsmitted reference range : <=4.0. The reference r kat was not used to int erpret this result as normal/abnormal . [facility]ptownEfyvehsQPOOPMQVJX9408-35-55 10:58:00 Test Item Value Reference Range Interpretation Comments Monocytes # (test code 0.8 See_Comment [Aut omated message] The = Monocytes #) system which generated this result tra nsmitted reference range : <=0.8. The reference r kat was not used to int erpret this result as normal/abnormal . [facility] UptownWihncjoORXIWCWCWX5671-30-42 10:58:00 Test Item Value Reference Range Interpretation Comments Lymphocytes # (test code = Lymphocytes 2.0 1.0-5.5 #) [facility] UptownTsthnlpVFYZEICSVV2745-62-23 10:58:00 Test Item Value Reference Range Interpretation Comments Microcyte (test code = 1+ *ABN*(08/16/15 Microcyte) 4:58 AM) [facility] UptownZrtsexoHFJVQATFWH1367-65-51 10:58:00 Test Item Value Reference Range Interpretation Comments MPV (test code = MPV) 8.9 7.4-10.4 [facility] UptownDafkgjfVPJZHOXLNC0885-10-70 10:58:00 Test Item Value Reference Range Interpretation Comments MCV (test code = MCV) 77.3 80.0-98.0 [facility] UptownVbawhqzAHSBEMXFRO2146-76-29 10:58:00 Test Item Value Reference Range Interpretation Comments Hgb (test code = Hgb) 11.9 12.0-16.0 [facility] UptownUhuwaqhPKQANHYWBA7935-22-98 10:58:00 Test Item Value Reference Range Interpretation Comments Hct (test code = Hct) 37.5 36.0-48.0 [facility] UptownMndebiaWPDTCAMGYH9364-73-24 10:58:00 Test Item Value Reference Range Interpretation Comments MCH (test code = MCH) 24.5 pg 27.0-31.0 [facility]ptownOvavqnmOHQTGZBQFT5000-42-46 10:58:00 Test Item Value Reference Range Interpretation Comments RBC (test code = RBC) 4.85 4.20-5.40 [facility] UptownAidouywTJCFIBLMSK6802-71-16 10:58:00 Test Item Value Reference Range Interpretation Comments WBC (test code = WBC) 10.9 3.7-10.4 [facility]ptownCxcwzqeQGIARILRSD8654-35-72 10:58:00 Test Item Value Reference Range Interpretation Comments RDW (test code = RDW) 15.9 11.5-14.5 [facility] UptownXyrubfpTLMOYJVIOK3150-02-14 10:58:00 Test Item Value Reference Range Interpretation Comments MCHC (test code = MCHC) 31.7 32.0-36.0 [facility] UptownOtdfvecLZBLTBSKAH3073-11-27 10:58:00 Test Item Value Reference Range Interpretation Comments Platelet (test code = Platelet) 242 133-450 [facility]2015-12-18 10:58:00 Test Item Value Reference Range Interpretation Comments eGFR (test code = eGFR) 126 [facility]2015-12-18 10:58:00 Test Item Value Reference Range Interpretation Comments AST (test code = AST) 29 See_Comment [Auto mated message] The system which ge nerated this result transmit arvind reference range : <=37. The reference range was not used to interpr et this result as mario l/abnormal. [facility]2015-12-18 10:58:00 Test Item Value Reference Range Interpretation Comments Alk Phos (test code = Alk Phos) 86 39-136 [facility]2015-12-18 10:58:00 Test Item Value Reference Range Interpretation Comments Bili Total (test code = Bili Total) 0.3 0.2-1.3 [facility]2015-12-18 10:58:00 Test Item Value Reference Range Interpretation Comments ALT (test code = ALT) 50 See_Comment [Auto mated message] The system which ge nerated this result transmit arvind reference range : <=65. The reference range was not used to interpr et this result as mario l/abnormal. [facility]2015-12-18 10:58:00 Test Item Value Reference Range Interpretation Comments Sodium Lvl (test code = Sodium Lvl) 136 135-145 [facility]2015-12-18 10:58:00 Test Item Value Reference Range Interpretation Comments Potassium Lvl (test code = Potassium 4.0 3.5-5.1 Lvl) [facility]2015-12-18 10:58:00 Test Item Value Reference Range Interpretation Comments Creatinine Lvl (test code = Creatinine 0.62 0.50-1.40 Lvl) [facility]2015-12-18 10:58:00 Test Item Value Reference Range Interpretation Comments Glucose Lvl (test code = Glucose Lvl) 101 70-99 [facility]2015-12-18 10:58:00 Test Item Value Reference Range Interpretation Comments BUN (test code = BUN) 5 7-22 [facility]2015-12-18 10:58:00 Test Item Value Reference Range Interpretation Comments Total Protein (test code = Total 5.8 6.4-8.4 Protein) [facility]2015-12-18 10:58:00 Test Item Value Reference Range Interpretation Comments Albumin Lvl (test code = Albumin Lvl) 3.2 3.5-5.0 [facility]2015-12-18 10:58:00 Test Item Value Reference Range Interpretation Comments Chloride Lvl (test code = Chloride Lvl) 100 95-109 [facility]2015-12-18 10:58:00 Test Item Value Reference Range Interpretation Comments Calcium Lvl (test code = Calcium Lvl) 8.6 8.5-10.5 [facility]2015-12-18 10:58:00 Test Item Value Reference Range Interpretation Comments CO2 (test code = CO2) 27 24-32 [facility]2015-12-18 10:58:00 Test Item Value Reference Range Interpretation Comments B/C Ratio (test code = B/C Ratio) 8 6-25 [facility]2015-12-18 10:58:00 Test Item Value Reference Range Interpretation Comments Globulin (test code = Globulin) 2.6 2.0-4.0 [facility]2015-12-18 10:58:00 Test Item Value Reference Range Interpretation Comments A/G Ratio (test code = A/G Ratio) 1.2 0.7-1.6 [facility]2015-12-18 10:58:00 Test Item Value Reference Range Interpretation Comments AGAP (test code = AGAP) 13.0 10.0-20.0 [facility]ptownHbosuykCSPNIUNHOP2306-56-76 10:58:00 Test Item Value Reference Range Interpretation Comments Segs (test code = Segs) 74.2 45.0-75.0 [facility] UptownXlqfymbOVHWNHNTYJ9831-73-81 10:58:00 Test Item Value Reference Range Interpretation Comments Lymphocytes (test code = Lymphocytes) 18.3 20.0-40.0 [facility] UptownJoynovjESBJEAIEVJ3457-88-33 10:58:00 Test Item Value Reference Range Interpretation Comments Monocytes (test code = Monocytes) 7.0 2.0-12.0 [facility] UptownStcjrmsQROZOQGTUR4032-67-50 10:58:00 Test Item Value Reference Range Interpretation Comments Basophils (test code = 0.3 See_Comment [Aut omated message] The Basophils) system which ge nerated this result tra nsmitted reference range : <=1.0. The reference r kat was not used to int erpret this result as normal/abnormal . [facility] UptownVqleazkLOLGHWDIJA9214-03-90 10:58:00 Test Item Value Reference Range Interpretation Comments Segs-Bands # (test code = Segs-Bands #) 8.1 1.5-8.1 [facility] UptownBzwsswtNHEWVQBZAW0556-79-94 10:58:00 Test Item Value Reference Range Interpretation Comments Eosinophils (test code = 0.2 See_Comment [A utomated message] The Eosinophils) system which ge nerated this result tra nsmitted reference range : <=4.0. The reference r kat was not used to int erpret this result as normal/abnormal . [facility] UptownTlzirxqXAQMOCHZPI6945-23-54 10:58:00 Test Item Value Reference Range Interpretation Comments Monocytes # (test code 0.8 See_Comment [Aut omated message] The = Monocytes #) system which generated this result tra nsmitted reference range : <=0.8. The reference r kat was not used to int erpret this result as normal/abnormal . [facility] UptownSagjoygSODLHRHDGM9146-14-24 10:58:00 Test Item Value Reference Range Interpretation Comments Lymphocytes # (test code = Lymphocytes 2.0 1.0-5.5 #) [facility] UptownBunmgeaQVCKMLSOZG6051-32-64 10:58:00 Test Item Value Reference Range Interpretation Comments Microcyte (test code = 1+ *ABN*(08/16/15 Microcyte) 4:58 AM) [facility] UptownYvdpagyQKEJWANLYF2137-87-80 10:58:00 Test Item Value Reference Range Interpretation Comments MPV (test code = MPV) 8.9 7.4-10.4 [facility] UptownPsawsllUQRSMJBRBF0318-14-48 10:58:00 Test Item Value Reference Range Interpretation Comments MCV (test code = MCV) 77.3 80.0-98.0 [facility]ownAhliemcLJGXLGNGZM3551-30-27 10:58:00 Test Item Value Reference Range Interpretation Comments Hgb (test code = Hgb) 11.9 12.0-16.0 [facility]ptownHgilvwwZASBPEQCOU7844-76-18 10:58:00 Test Item Value Reference Range Interpretation Comments Hct (test code = Hct) 37.5 36.0-48.0 [facility] UptownRpyihtyWYUXSPBZEA4270-40-37 10:58:00 Test Item Value Reference Range Interpretation Comments MCH (test code = MCH) 24.5 pg 27.0-31.0 [facility] UptownAmelpzpDEBGEZMAXK9370-75-42 10:58:00 Test Item Value Reference Range Interpretation Comments RBC (test code = RBC) 4.85 4.20-5.40 [facility] UptownZacqasjJBWSKQIOGI7618-31-42 10:58:00 Test Item Value Reference Range Interpretation Comments WBC (test code = WBC) 10.9 3.7-10.4 [facility]ptownKccxxlcGJZXLJBLAM5986-23-07 10:58:00 Test Item Value Reference Range Interpretation Comments RDW (test code = RDW) 15.9 11.5-14.5 [facility] UptownSdpykzzJHVAVGENFF9573-41-26 10:58:00 Test Item Value Reference Range Interpretation Comments MCHC (test code = MCHC) 31.7 32.0-36.0 [facility] UptownWiepcrcZTGIJRCOKS0008-19-88 10:58:00 Test Item Value Reference Range Interpretation Comments Platelet (test code = Platelet) 242 133-450 [facility]2015-12-18 10:58:00 Test Item Value Reference Range Interpretation Comments eGFR (test code = eGFR) 126 [facility]2015-12-18 10:58:00 Test Item Value Reference Range Interpretation Comments AST (test code = AST) 29 See_Comment [Auto mated message] The system which ge nerated this result transmit arvind reference range : <=37. The reference range was not used to interpr et this result as mario l/abnormal. [facility]2015-12-18 10:58:00 Test Item Value Reference Range Interpretation Comments Alk Phos (test code = Alk Phos) 86 39-136 [facility]2015-12-18 10:58:00 Test Item Value Reference Range Interpretation Comments Bili Total (test code = Bili Total) 0.3 0.2-1.3 [facility]2015-12-18 10:58:00 Test Item Value Reference Range Interpretation Comments ALT (test code = ALT) 50 See_Comment [Auto mated message] The system which ge nerated this result transmit arvind reference range : <=65. The reference range was not used to interpr et this result as mario l/abnormal. [facility]2015-12-18 10:58:00 Test Item Value Reference Range Interpretation Comments Sodium Lvl (test code = Sodium Lvl) 136 135-145 [facility]2015-12-18 10:58:00 Test Item Value Reference Range Interpretation Comments Potassium Lvl (test code = Potassium 4.0 3.5-5.1 Lvl) [facility]2015-12-18 10:58:00 Test Item Value Reference Range Interpretation Comments Creatinine Lvl (test code = Creatinine 0.62 0.50-1.40 Lvl) [facility]2015-12-18 10:58:00 Test Item Value Reference Range Interpretation Comments Glucose Lvl (test code = Glucose Lvl) 101 70-99 [facility]2015-12-18 10:58:00 Test Item Value Reference Range Interpretation Comments BUN (test code = BUN) 5 7-22 [facility]2015-12-18 10:58:00 Test Item Value Reference Range Interpretation Comments Total Protein (test code = Total 5.8 6.4-8.4 Protein) [facility]2015-12-18 10:58:00 Test Item Value Reference Range Interpretation Comments Albumin Lvl (test code = Albumin Lvl) 3.2 3.5-5.0 [facility]2015-12-18 10:58:00 Test Item Value Reference Range Interpretation Comments Chloride Lvl (test code = Chloride Lvl) 100 95-109 [facility]2015-12-18 10:58:00 Test Item Value Reference Range Interpretation Comments Calcium Lvl (test code = Calcium Lvl) 8.6 8.5-10.5 [facility]2015-12-18 10:58:00 Test Item Value Reference Range Interpretation Comments CO2 (test code = CO2) 27 24-32 [facility]2015-12-18 10:58:00 Test Item Value Reference Range Interpretation Comments B/C Ratio (test code = B/C Ratio) 8 6-25 [facility]2015-12-18 10:58:00 Test Item Value Reference Range Interpretation Comments Globulin (test code = Globulin) 2.6 2.0-4.0 [facility]2015-12-18 10:58:00 Test Item Value Reference Range Interpretation Comments A/G Ratio (test code = A/G Ratio) 1.2 0.7-1.6 [facility]2015-12-18 10:58:00 Test Item Value Reference Range Interpretation Comments AGAP (test code = AGAP) 13.0 10.0-20.0 [facility]ptownKuiofpgXJKJAENDNR9721-27-47 10:58:00 Test Item Value Reference Range Interpretation Comments Segs (test code = Segs) 74.2 45.0-75.0 [facility] UptownQovgoteEKOGRINPBQ1350-17-01 10:58:00 Test Item Value Reference Range Interpretation Comments Lymphocytes (test code = Lymphocytes) 18.3 20.0-40.0 [facility] UptownHwednjhESKKCXYMWK8827-57-25 10:58:00 Test Item Value Reference Range Interpretation Comments Monocytes (test code = Monocytes) 7.0 2.0-12.0 [facility] UptownIwnsdqfEMARRRLUCY2294-72-12 10:58:00 Test Item Value Reference Range Interpretation Comments Basophils (test code = 0.3 See_Comment [Aut omated message] The Basophils) system which ge nerated this result tra nsmitted reference range : <=1.0. The reference r kat was not used to int erpret this result as normal/abnormal . [facility]ptownMqksfjlPOGIGKSXAT6745-53-59 10:58:00 Test Item Value Reference Range Interpretation Comments Segs-Bands # (test code = Segs-Bands #) 8.1 1.5-8.1 [facility]ptownMedcpbgGJGMLMCPHV0350-27-90 10:58:00 Test Item Value Reference Range Interpretation Comments Eosinophils (test code = 0.2 See_Comment [A utomated message] The Eosinophils) system which ge nerated this result tra nsmitted reference range : <=4.0. The reference r kat was not used to int erpret this result as normal/abnormal . [facility]ptownSzbenfeZQJOEKBVNA0822-74-10 10:58:00 Test Item Value Reference Range Interpretation Comments Monocytes # (test code 0.8 See_Comment [Aut omated message] The = Monocytes #) system which generated this result tra nsmitted reference range : <=0.8. The reference r kat was not used to int erpret this result as normal/abnormal . [facility] UptownVrqigqjCSSMHRNTGY3279-04-46 10:58:00 Test Item Value Reference Range Interpretation Comments Lymphocytes # (test code = Lymphocytes 2.0 1.0-5.5 #) [facility] UptownBgqbtylWKAPAFXZVL8137-91-71 10:58:00 Test Item Value Reference Range Interpretation Comments Microcyte (test code = 1+ *ABN*(08/16/15 Microcyte) 4:58 AM) [facility]ptownGspzkfaYWKTGHCJSC8288-28-49 10:58:00 Test Item Value Reference Range Interpretation Comments MPV (test code = MPV) 8.9 7.4-10.4 [facility] UptownLwkkeyyIBXIZXDFRK5358-95-21 10:58:00 Test Item Value Reference Range Interpretation Comments MCV (test code = MCV) 77.3 80.0-98.0 [facility] UptownWtmerdnPRYWDOPLKJ2092-22-78 10:58:00 Test Item Value Reference Range Interpretation Comments Hgb (test code = Hgb) 11.9 12.0-16.0 [facility] UptownCseilmmKDUJSDVION0199-36-65 10:58:00 Test Item Value Reference Range Interpretation Comments Hct (test code = Hct) 37.5 36.0-48.0 [facility] UptownOpgwxfwHUJHHTCKAZ8278-44-58 10:58:00 Test Item Value Reference Range Interpretation Comments MCH (test code = MCH) 24.5 pg 27.0-31.0 [facility] UptownWjrisdgHURLSWEZKH7807-68-00 10:58:00 Test Item Value Reference Range Interpretation Comments RBC (test code = RBC) 4.85 4.20-5.40 [facility] UptownJmpmzfcUCPNOVHHLP1138-47-32 10:58:00 Test Item Value Reference Range Interpretation Comments WBC (test code = WBC) 10.9 3.7-10.4 [facility] UptownNswgefaFJRQTNTEYL2631-41-97 10:58:00 Test Item Value Reference Range Interpretation Comments RDW (test code = RDW) 15.9 11.5-14.5 [facility] UptownGgfsvxcQZMJYPZIDM2511-60-54 10:58:00 Test Item Value Reference Range Interpretation Comments MCHC (test code = MCHC) 31.7 32.0-36.0 [facility] UptownMjuojvmBUNLZVRBVO4726-47-84 10:58:00 Test Item Value Reference Range Interpretation Comments Platelet (test code = Platelet) 242 133-450 [facility]2015-12-18 10:58:00 Test Item Value Reference Range Interpretation Comments eGFR (test code = eGFR) 126 [facility]2015-12-18 10:58:00 Test Item Value Reference Range Interpretation Comments AST (test code = AST) 29 See_Comment [Auto mated message] The system which ge nerated this result transmit arvind reference range : <=37. The reference range was not used to interpr et this result as mario l/abnormal. [facility]2015-12-18 10:58:00 Test Item Value Reference Range Interpretation Comments Alk Phos (test code = Alk Phos) 86 39-136 [facility]2015-12-18 10:58:00 Test Item Value Reference Range Interpretation Comments Bili Total (test code = Bili Total) 0.3 0.2-1.3 [facility]2015-12-18 10:58:00 Test Item Value Reference Range Interpretation Comments ALT (test code = ALT) 50 See_Comment [Auto mated message] The system which ge nerated this result transmit arvind reference range : <=65. The reference range was not used to interpr et this result as mario l/abnormal. [facility]2015-12-18 10:58:00 Test Item Value Reference Range Interpretation Comments Sodium Lvl (test code = Sodium Lvl) 136 135-145 [facility]2015-12-18 10:58:00 Test Item Value Reference Range Interpretation Comments Potassium Lvl (test code = Potassium 4.0 3.5-5.1 Lvl) [facility]2015-12-18 10:58:00 Test Item Value Reference Range Interpretation Comments Creatinine Lvl (test code = Creatinine 0.62 0.50-1.40 Lvl) [facility]2015-12-18 10:58:00 Test Item Value Reference Range Interpretation Comments Glucose Lvl (test code = Glucose Lvl) 101 70-99 [facility]2015-12-18 10:58:00 Test Item Value Reference Range Interpretation Comments BUN (test code = BUN) 5 7-22 [facility]2015-12-18 10:58:00 Test Item Value Reference Range Interpretation Comments Total Protein (test code = Total 5.8 6.4-8.4 Protein) [facility]2015-12-18 10:58:00 Test Item Value Reference Range Interpretation Comments Albumin Lvl (test code = Albumin Lvl) 3.2 3.5-5.0 [facility]2015-12-18 10:58:00 Test Item Value Reference Range Interpretation Comments Chloride Lvl (test code = Chloride Lvl) 100 95-109 [facility]2015-12-18 10:58:00 Test Item Value Reference Range Interpretation Comments Calcium Lvl (test code = Calcium Lvl) 8.6 8.5-10.5 [facility]2015-12-18 10:58:00 Test Item Value Reference Range Interpretation Comments CO2 (test code = CO2) 27 24-32 [facility]2015-12-18 10:58:00 Test Item Value Reference Range Interpretation Comments B/C Ratio (test code = B/C Ratio) 8 6-25 [facility]2015-12-18 10:58:00 Test Item Value Reference Range Interpretation Comments Globulin (test code = Globulin) 2.6 2.0-4.0 [facility]2015-12-18 10:58:00 Test Item Value Reference Range Interpretation Comments A/G Ratio (test code = A/G Ratio) 1.2 0.7-1.6 [facility]2015-12-18 10:58:00 Test Item Value Reference Range Interpretation Comments AGAP (test code = AGAP) 13.0 10.0-20.0 [facility]ptownUbzijmdWTYHQQPBLV5937-53-65 10:58:00 Test Item Value Reference Range Interpretation Comments Segs (test code = Segs) 74.2 45.0-75.0 [facility] UptownClcvhshCDIGLOTHQR7816-51-29 10:58:00 Test Item Value Reference Range Interpretation Comments Lymphocytes (test code = Lymphocytes) 18.3 20.0-40.0 [facility] UptownIxzeapaOWKQRVNBIG5599-67-90 10:58:00 Test Item Value Reference Range Interpretation Comments Monocytes (test code = Monocytes) 7.0 2.0-12.0 [facility] UptownYoegbloWHWOHVWVMK7465-79-11 10:58:00 Test Item Value Reference Range Interpretation Comments Basophils (test code = 0.3 See_Comment [Aut omated message] The Basophils) system which ge nerated this result tra nsmitted reference range : <=1.0. The reference r kat was not used to int erpret this result as normal/abnormal . [facility] UptownJhmsmujBLIKEDNKGV0083-67-99 10:58:00 Test Item Value Reference Range Interpretation Comments Segs-Bands # (test code = Segs-Bands #) 8.1 1.5-8.1 [facility]ptownVzfxchjWBSGZWDGBV4650-49-03 10:58:00 Test Item Value Reference Range Interpretation Comments Eosinophils (test code = 0.2 See_Comment [A utomated message] The Eosinophils) system which ge nerated this result tra nsmitted reference range : <=4.0. The reference r kat was not used to int erpret this result as normal/abnormal . [facility] UptownIowqcvuVIJFLBGJKZ4426-18-12 10:58:00 Test Item Value Reference Range Interpretation Comments Monocytes # (test code 0.8 See_Comment [Aut omated message] The = Monocytes #) system which generated this result tra nsmitted reference range : <=0.8. The reference r kat was not used to int erpret this result as normal/abnormal . [facility]ptownFdvchugGJPCJREWFC4956-41-89 10:58:00 Test Item Value Reference Range Interpretation Comments Lymphocytes # (test code = Lymphocytes 2.0 1.0-5.5 #) [facility] UptownLhsrnhvWRPSBZCKQA2257-58-02 10:58:00 Test Item Value Reference Range Interpretation Comments Microcyte (test code = 1+ *ABN*(08/16/15 Microcyte) 4:58 AM) [facility] UptownVlzkrrkWLNTMGPQYR3418-03-20 10:58:00 Test Item Value Reference Range Interpretation Comments MPV (test code = MPV) 8.9 7.4-10.4 [facility] UptownMyxorwhGYRNDJASSF1570-51-13 10:58:00 Test Item Value Reference Range Interpretation Comments MCV (test code = MCV) 77.3 80.0-98.0 [facility] UptownUqwiakwJBRGLMMHGT1520-49-94 10:58:00 Test Item Value Reference Range Interpretation Comments Hgb (test code = Hgb) 11.9 12.0-16.0 [facility]ptownVcygrlqBPQWBXHOQC1726-75-78 10:58:00 Test Item Value Reference Range Interpretation Comments Hct (test code = Hct) 37.5 36.0-48.0 [facility]ptownZhmttzjYZIXZEVCQG8974-22-15 10:58:00 Test Item Value Reference Range Interpretation Comments MCH (test code = MCH) 24.5 pg 27.0-31.0 [facility] UptownHouzcxjKNGMUKDEBS3556-72-91 10:58:00 Test Item Value Reference Range Interpretation Comments RBC (test code = RBC) 4.85 4.20-5.40 [facility] UptownDoetjzsKURXJHHNJF7805-48-30 10:58:00 Test Item Value Reference Range Interpretation Comments WBC (test code = WBC) 10.9 3.7-10.4 [facility] UptownCqcbedtPHJUNOYWGQ1655-66-21 10:58:00 Test Item Value Reference Range Interpretation Comments RDW (test code = RDW) 15.9 11.5-14.5 [facility] UptownHrjoswsLTQAAHYRGX8363-81-92 10:58:00 Test Item Value Reference Range Interpretation Comments MCHC (test code = MCHC) 31.7 32.0-36.0 [facility] UptownFiavsutICFYYJHTQY9297-88-74 10:58:00 Test Item Value Reference Range Interpretation Comments Platelet (test code = Platelet) 242 133-450 [facility]2015-12-18 10:58:00 Test Item Value Reference Range Interpretation Comments eGFR (test code = eGFR) 126 [facility]2015-12-18 10:58:00 Test Item Value Reference Range Interpretation Comments AST (test code = AST) 29 See_Comment [Auto mated message] The system which ge nerated this result transmit arvind reference range : <=37. The reference range was not used to interpr et this result as mario l/abnormal. [facility]2015-12-18 10:58:00 Test Item Value Reference Range Interpretation Comments Alk Phos (test code = Alk Phos) 86 39-136 [facility]2015-12-18 10:58:00 Test Item Value Reference Range Interpretation Comments Bili Total (test code = Bili Total) 0.3 0.2-1.3 [facility]2015-12-18 10:58:00 Test Item Value Reference Range Interpretation Comments ALT (test code = ALT) 50 See_Comment [Auto mated message] The system which ge nerated this result transmit arvind reference range : <=65. The reference range was not used to interpr et this result as mario l/abnormal. [facility]2015-12-18 10:58:00 Test Item Value Reference Range Interpretation Comments Sodium Lvl (test code = Sodium Lvl) 136 135-145 [facility]2015-12-18 10:58:00 Test Item Value Reference Range Interpretation Comments Potassium Lvl (test code = Potassium 4.0 3.5-5.1 Lvl) [facility]2015-12-18 10:58:00 Test Item Value Reference Range Interpretation Comments Creatinine Lvl (test code = Creatinine 0.62 0.50-1.40 Lvl) [facility]2015-12-18 10:58:00 Test Item Value Reference Range Interpretation Comments Glucose Lvl (test code = Glucose Lvl) 101 70-99 [facility]2015-12-18 10:58:00 Test Item Value Reference Range Interpretation Comments BUN (test code = BUN) 5 7-22 [facility]2015-12-18 10:58:00 Test Item Value Reference Range Interpretation Comments Total Protein (test code = Total 5.8 6.4-8.4 Protein) [facility]2015-12-18 10:58:00 Test Item Value Reference Range Interpretation Comments Albumin Lvl (test code = Albumin Lvl) 3.2 3.5-5.0 [facility]2015-12-18 10:58:00 Test Item Value Reference Range Interpretation Comments Chloride Lvl (test code = Chloride Lvl) 100 95-109 [facility]2015-12-18 10:58:00 Test Item Value Reference Range Interpretation Comments Calcium Lvl (test code = Calcium Lvl) 8.6 8.5-10.5 [facility]2015-12-18 10:58:00 Test Item Value Reference Range Interpretation Comments CO2 (test code = CO2) 27 24-32 [facility]2015-12-18 10:58:00 Test Item Value Reference Range Interpretation Comments B/C Ratio (test code = B/C Ratio) 8 6-25 [facility]2015-12-18 10:58:00 Test Item Value Reference Range Interpretation Comments Globulin (test code = Globulin) 2.6 2.0-4.0 [facility]2015-12-18 10:58:00 Test Item Value Reference Range Interpretation Comments A/G Ratio (test code = A/G Ratio) 1.2 0.7-1.6 [facility]2015-12-18 10:58:00 Test Item Value Reference Range Interpretation Comments AGAP (test code = AGAP) 13.0 10.0-20.0 [facility]ptownYbliexxZQAJIPKXKB1990 10:58:00 Test Item Value Reference Range Interpretation Comments Segs (test code = Segs) 74.2 45.0-75.0 [facility] UptownRunidadPHRWOHPUPJ8249-29-89 10:58:00 Test Item Value Reference Range Interpretation Comments Lymphocytes (test code = Lymphocytes) 18.3 20.0-40.0 [facility] UptownRhvjpgxXTEBXPRLVI2368-65-95 10:58:00 Test Item Value Reference Range Interpretation Comments Monocytes (test code = Monocytes) 7.0 2.0-12.0 [facility]ptownWbfiahxVHWAYVIXCV3873-64-03 10:58:00 Test Item Value Reference Range Interpretation Comments Basophils (test code = 0.3 See_Comment [Aut omated message] The Basophils) system which ge nerated this result tra nsmitted reference range : <=1.0. The reference r kat was not used to int erpret this result as normal/abnormal . [facility]ptownGpazxfnJYRPOVEAVH9423-01-67 10:58:00 Test Item Value Reference Range Interpretation Comments Segs-Bands # (test code = Segs-Bands #) 8.1 1.5-8.1 [facility]ptownSpqxqkjIIKZBOOODS5397-47-46 10:58:00 Test Item Value Reference Range Interpretation Comments Eosinophils (test code = 0.2 See_Comment [A utomated message] The Eosinophils) system which ge nerated this result tra nsmitted reference range : <=4.0. The reference r kat was not used to int erpret this result as normal/abnormal . [facility] UptownItzkdieULLMXPAECA4981-63-43 10:58:00 Test Item Value Reference Range Interpretation Comments Monocytes # (test code 0.8 See_Comment [Aut omated message] The = Monocytes #) system which generated this result tra nsmitted reference range : <=0.8. The reference r kat was not used to int erpret this result as normal/abnormal . [facility]ptownWguwwnwCVVRKXFVKL1391-70-16 10:58:00 Test Item Value Reference Range Interpretation Comments Lymphocytes # (test code = Lymphocytes 2.0 1.0-5.5 #) [facility] UptownXozolnlLCOCUWIDUX6690-43-46 10:58:00 Test Item Value Reference Range Interpretation Comments Microcyte (test code = 1+ *ABN*(08/16/15 Microcyte) 4:58 AM) [facility]ptownIublfbfLGJSFGTVGX3512-24-12 10:58:00 Test Item Value Reference Range Interpretation Comments MPV (test code = MPV) 8.9 7.4-10.4 [facility] UptownUufvugrUITKQRQIYY1021-22-43 10:58:00 Test Item Value Reference Range Interpretation Comments MCV (test code = MCV) 77.3 80.0-98.0 [facility] UptownTnkqkcnJHYAOTINCM0378-18-80 10:58:00 Test Item Value Reference Range Interpretation Comments Hgb (test code = Hgb) 11.9 12.0-16.0 [facility] UptownUzeqqvtJFJRVWSZJZ9389-25-53 10:58:00 Test Item Value Reference Range Interpretation Comments Hct (test code = Hct) 37.5 36.0-48.0 [facility] UptownBuyxngmCVHMMOFQKJ5096-82-74 10:58:00 Test Item Value Reference Range Interpretation Comments MCH (test code = MCH) 24.5 pg 27.0-31.0 [facility] UptownKnuosmhYFGSDJLJHI0911-82-61 10:58:00 Test Item Value Reference Range Interpretation Comments RBC (test code = RBC) 4.85 4.20-5.40 [facility] UptownKkhorydYOEGKSYMOW5719-14-34 10:58:00 Test Item Value Reference Range Interpretation Comments WBC (test code = WBC) 10.9 3.7-10.4 [facility] UptownYkffzgqLTGGWLLDTM6697-20-51 10:58:00 Test Item Value Reference Range Interpretation Comments RDW (test code = RDW) 15.9 11.5-14.5 [facility] UptownAtuqgjfRFSDRCMNGH1930-76-46 10:58:00 Test Item Value Reference Range Interpretation Comments MCHC (test code = MCHC) 31.7 32.0-36.0 [facility]ownZxyuwpnWMFUSGGEBS3103-11-34 10:58:00 Test Item Value Reference Range Interpretation Comments Platelet (test code = Platelet) 242 133-450 [facility]2015-12-18 10:58:00 Test Item Value Reference Range Interpretation Comments eGFR (test code = eGFR) 126 [facility]2015-12-18 10:58:00 Test Item Value Reference Range Interpretation Comments AST (test code = AST) 29 See_Comment [Auto mated message] The system which ge nerated this result transmit arvind reference range : <=37. The reference range was not used to interpr et this result as mario l/abnormal. [facility]2015-12-18 10:58:00 Test Item Value Reference Range Interpretation Comments Alk Phos (test code = Alk Phos) 86 39-136 [facility]2015-12-18 10:58:00 Test Item Value Reference Range Interpretation Comments Bili Total (test code = Bili Total) 0.3 0.2-1.3 [place] 203065-12-18 10:58:00 Test Item Value Reference Range Interpretation Comments ALT (test code = ALT) 50 See_Comment [Auto mated message] The system which ge nerated this result transmit arvind reference range : <=65. The reference range was not used to interpr et this result as mario l/abnormal. [facility]2015-12-18 10:58:00 Test Item Value Reference Range Interpretation Comments Sodium Lvl (test code = Sodium Lvl) 136 135-145 [facility]2015-12-18 10:58:00 Test Item Value Reference Range Interpretation Comments Potassium Lvl (test code = Potassium 4.0 3.5-5.1 Lvl) [facility]2015-12-18 10:58:00 Test Item Value Reference Range Interpretation Comments Creatinine Lvl (test code = Creatinine 0.62 0.50-1.40 Lvl) [facility]2015-12-18 10:58:00 Test Item Value Reference Range Interpretation Comments Glucose Lvl (test code = Glucose Lvl) 101 70-99 [facility]2015-12-18 10:58:00 Test Item Value Reference Range Interpretation Comments BUN (test code = BUN) 5 7-22 [facility]2015-12-18 10:58:00 Test Item Value Reference Range Interpretation Comments Total Protein (test code = Total 5.8 6.4-8.4 Protein) [facility]2015-12-18 10:58:00 Test Item Value Reference Range Interpretation Comments Albumin Lvl (test code = Albumin Lvl) 3.2 3.5-5.0 [facility]2015-12-18 10:58:00 Test Item Value Reference Range Interpretation Comments Chloride Lvl (test code = Chloride Lvl) 100 95-109 [facility]2015-12-18 10:58:00 Test Item Value Reference Range Interpretation Comments Calcium Lvl (test code = Calcium Lvl) 8.6 8.5-10.5 [facility]2015-12-18 10:58:00 Test Item Value Reference Range Interpretation Comments CO2 (test code = CO2) 27 24-32 [facility]2015-12-18 10:58:00 Test Item Value Reference Range Interpretation Comments B/C Ratio (test code = B/C Ratio) 8 6-25 [facility]2015-12-18 10:58:00 Test Item Value Reference Range Interpretation Comments Globulin (test code = Globulin) 2.6 2.0-4.0 [facility]2015-12-18 10:58:00 Test Item Value Reference Range Interpretation Comments A/G Ratio (test code = A/G Ratio) 1.2 0.7-1.6 [facility]2015-12-18 10:58:00 Test Item Value Reference Range Interpretation Comments AGAP (test code = AGAP) 13.0 10.0-20.0 [facility]ownHseimgqTWUMXYYWEZ6164-82-99 10:58:00 Test Item Value Reference Range Interpretation Comments Segs (test code = Segs) 74.2 45.0-75.0 [facility] UptownUkshitbHWKPSIPTWY9650-63-43 10:58:00 Test Item Value Reference Range Interpretation Comments Lymphocytes (test code = Lymphocytes) 18.3 20.0-40.0 [facility]ptownHjggnysLLECPKSALA4563-04-99 10:58:00 Test Item Value Reference Range Interpretation Comments Monocytes (test code = Monocytes) 7.0 2.0-12.0 [facility]ownZqeiirpYQEVPNFHDJ4169-38-71 10:58:00 Test Item Value Reference Range Interpretation Comments Basophils (test code = 0.3 See_Comment [Aut omated message] The Basophils) system which ge nerated this result tra nsmitted reference range : <=1.0. The reference r kat was not used to int erpret this result as normal/abnormal . [facility]ptownCieaclgYGBXBWLXJM9951-31-61 10:58:00 Test Item Value Reference Range Interpretation Comments Segs-Bands # (test code = Segs-Bands #) 8.1 1.5-8.1 [facility] UptownIolcsblZVRUZDRQBQ6004-40-39 10:58:00 Test Item Value Reference Range Interpretation Comments Eosinophils (test code = 0.2 See_Comment [A utomated message] The Eosinophils) system which ge nerated this result tra nsmitted reference range : <=4.0. The reference r kat was not used to int erpret this result as normal/abnormal . [facility] UptownDfxqfytLYCNICDPMU3773-20-75 10:58:00 Test Item Value Reference Range Interpretation Comments Monocytes # (test code 0.8 See_Comment [Aut omated message] The = Monocytes #) system which generated this result tra nsmitted reference range : <=0.8. The reference r kat was not used to int erpret this result as normal/abnormal . [facility]ptownKnwlznyRPMEVOZGFR4873-97-32 10:58:00 Test Item Value Reference Range Interpretation Comments Lymphocytes # (test code = Lymphocytes 2.0 1.0-5.5 #) [facility] UptownIrhfmhdOGZYPDMYVD8151-74-69 10:58:00 Test Item Value Reference Range Interpretation Comments Microcyte (test code = 1+ *ABN*(08/16/15 Microcyte) 4:58 AM) [facility]ptownRqkfppxNFNNWKQVCI1994-26-15 10:58:00 Test Item Value Reference Range Interpretation Comments MPV (test code = MPV) 8.9 7.4-10.4 [facility]ptownJtgsjswNHFQPPXYRX3425-24-62 10:58:00 Test Item Value Reference Range Interpretation Comments MCV (test code = MCV) 77.3 80.0-98.0 [facility]ptownAipwvbbGGOGWUFORL0500-16-05 10:58:00 Test Item Value Reference Range Interpretation Comments Hgb (test code = Hgb) 11.9 12.0-16.0 [facility] UptownCeubbeuKXYSAGIBTO9167-71-13 10:58:00 Test Item Value Reference Range Interpretation Comments Hct (test code = Hct) 37.5 36.0-48.0 [facility] UptownOghfbpiTCNLPMOBCH6137-46-27 10:58:00 Test Item Value Reference Range Interpretation Comments MCH (test code = MCH) 24.5 pg 27.0-31.0 [facility] UptownZrwvxodMPFFUEHZND3968-93-99 10:58:00 Test Item Value Reference Range Interpretation Comments RBC (test code = RBC) 4.85 4.20-5.40 [facility] UptownTpvvrhvXFQUZRKXRH9974-42-96 10:58:00 Test Item Value Reference Range Interpretation Comments WBC (test code = WBC) 10.9 3.7-10.4 [facility] UptownYoqbathQIMDOAFICN3174-63-23 10:58:00 Test Item Value Reference Range Interpretation Comments RDW (test code = RDW) 15.9 11.5-14.5 [facility] UptownLbsxzttGCJZFZWXXN4123-39-89 10:58:00 Test Item Value Reference Range Interpretation Comments MCHC (test code = MCHC) 31.7 32.0-36.0 [facility] UptownTwgfmmhTSGYGMZWQL7259-18-68 10:58:00 Test Item Value Reference Range Interpretation Comments Platelet (test code = Platelet) 242 133-450 [facility]2015-12-18 10:58:00 Test Item Value Reference Range Interpretation Comments eGFR (test code = eGFR) 126 [facility] MIEWF2786-61-61 10:58:00 Test Item Value Reference Range Interpretation Comments AST (test code = AST) 29 See_Comment [Auto mated message] The system which ge nerated this result transmit arvind reference range : <=37. The reference range was not used to interpr et this result as mario l/abnormal. [facility]2015-12-18 10:58:00 Test Item Value Reference Range Interpretation Comments Alk Phos (test code = Alk Phos) 86 39-136 [facility]2015-12-18 10:58:00 Test Item Value Reference Range Interpretation Comments Bili Total (test code = Bili Total) 0.3 0.2-1.3 [facility]2015-12-18 10:58:00 Test Item Value Reference Range Interpretation Comments ALT (test code = ALT) 50 See_Comment [Auto mated message] The system which ge nerated this result transmit arvind reference range : <=65. The reference range was not used to interpr et this result as mario l/abnormal. [facility]2015-12-18 10:58:00 Test Item Value Reference Range Interpretation Comments Sodium Lvl (test code = Sodium Lvl) 136 135-145 [facility]2015-12-18 10:58:00 Test Item Value Reference Range Interpretation Comments Potassium Lvl (test code = Potassium 4.0 3.5-5.1 Lvl) [facility]2015-12-18 10:58:00 Test Item Value Reference Range Interpretation Comments Creatinine Lvl (test code = Creatinine 0.62 0.50-1.40 Lvl) [facility]2015-12-18 10:58:00 Test Item Value Reference Range Interpretation Comments Glucose Lvl (test code = Glucose Lvl) 101 70-99 [facility]2015-12-18 10:58:00 Test Item Value Reference Range Interpretation Comments BUN (test code = BUN) 5 7-22 [facility]2015-12-18 10:58:00 Test Item Value Reference Range Interpretation Comments Total Protein (test code = Total 5.8 6.4-8.4 Protein) [facility]2015-12-18 10:58:00 Test Item Value Reference Range Interpretation Comments Albumin Lvl (test code = Albumin Lvl) 3.2 3.5-5.0 [place] 203065-12-18 10:58:00 Test Item Value Reference Range Interpretation Comments Chloride Lvl (test code = Chloride Lvl) 100 95-109 [facility]2015-12-18 10:58:00 Test Item Value Reference Range Interpretation Comments Calcium Lvl (test code = Calcium Lvl) 8.6 8.5-10.5 [facility]2015-12-18 10:58:00 Test Item Value Reference Range Interpretation Comments CO2 (test code = CO2) 27 24-32 [facility]2015-12-18 10:58:00 Test Item Value Reference Range Interpretation Comments B/C Ratio (test code = B/C Ratio) 8 6-25 [facility]2015-12-18 10:58:00 Test Item Value Reference Range Interpretation Comments Globulin (test code = Globulin) 2.6 2.0-4.0 [facility]2015-12-18 10:58:00 Test Item Value Reference Range Interpretation Comments A/G Ratio (test code = A/G Ratio) 1.2 0.7-1.6 [facility]2015-12-18 10:58:00 Test Item Value Reference Range Interpretation Comments AGAP (test code = AGAP) 13.0 10.0-20.0 [facility] UptownEvvvadrUCYCVJHNKU9311-28-90 10:58:00 Test Item Value Reference Range Interpretation Comments Segs (test code = Segs) 74.2 45.0-75.0 [facility] UptownQnvmckzWOLOYIRSZV8229-43-98 10:58:00 Test Item Value Reference Range Interpretation Comments Lymphocytes (test code = Lymphocytes) 18.3 20.0-40.0 [facility] UptownLhksdozNQFUTXNHGP3403-32-99 10:58:00 Test Item Value Reference Range Interpretation Comments Monocytes (test code = Monocytes) 7.0 2.0-12.0 [facility] UptownZxvhknrAIZOXMHZUM2233-67-28 10:58:00 Test Item Value Reference Range Interpretation Comments Basophils (test code = 0.3 See_Comment [Aut omated message] The Basophils) system which ge nerated this result tra nsmitted reference range : <=1.0. The reference r kat was not used to int erpret this result as normal/abnormal . [facility] UptownYoyreqiPTTIHOAOSN3277-46-03 10:58:00 Test Item Value Reference Range Interpretation Comments Segs-Bands # (test code = Segs-Bands #) 8.1 1.5-8.1 [facility] UptownOeoinorRTLADHYMLN5244-92-18 10:58:00 Test Item Value Reference Range Interpretation Comments Eosinophils (test code = 0.2 See_Comment [A utomated message] The Eosinophils) system which ge nerated this result tra nsmitted reference range : <=4.0. The reference r kat was not used to int erpret this result as normal/abnormal . [facility]ownWcxlqvwOQXSWNQNDH0434-97-64 10:58:00 Test Item Value Reference Range Interpretation Comments Monocytes # (test code 0.8 See_Comment [Aut omated message] The = Monocytes #) system which generated this result tra nsmitted reference range : <=0.8. The reference r kat was not used to int erpret this result as normal/abnormal . [facility]ptownNwqgptgZWVOCJXKVV4546-12-32 10:58:00 Test Item Value Reference Range Interpretation Comments Lymphocytes # (test code = Lymphocytes 2.0 1.0-5.5 #) [facility] UptownAeimnotARDDJIWJXY3722-74-34 10:58:00 Test Item Value Reference Range Interpretation Comments Microcyte (test code = 1+ *ABN*(08/16/15 Microcyte) 4:58 AM) [facility]ptownRiuahpwOOHZEIGLAT1191-46-74 10:58:00 Test Item Value Reference Range Interpretation Comments MPV (test code = MPV) 8.9 7.4-10.4 [facility] UptownYvxxojuTFXHYVBUNG7942-94-03 10:58:00 Test Item Value Reference Range Interpretation Comments MCV (test code = MCV) 77.3 80.0-98.0 [facility]ptownCgqpijtIBCFDMBFWI4593-68-93 10:58:00 Test Item Value Reference Range Interpretation Comments Hgb (test code = Hgb) 11.9 12.0-16.0 [facility] UptownLmrxctkCDICJOHBGO1967-46-95 10:58:00 Test Item Value Reference Range Interpretation Comments Hct (test code = Hct) 37.5 36.0-48.0 [facility] UptownIhkygtmBKRYUGCPIC2787-55-58 10:58:00 Test Item Value Reference Range Interpretation Comments MCH (test code = MCH) 24.5 pg 27.0-31.0 [facility] UptownVtwhnrsTPWOMYQKJS5508-18-71 10:58:00 Test Item Value Reference Range Interpretation Comments RBC (test code = RBC) 4.85 4.20-5.40 [facility] UptownJpcnnepSBHCZRIPMJ0778-12-92 10:58:00 Test Item Value Reference Range Interpretation Comments WBC (test code = WBC) 10.9 3.7-10.4 [facility] UptownLmwexlpBQLZQSCCVD9905-41-70 10:58:00 Test Item Value Reference Range Interpretation Comments RDW (test code = RDW) 15.9 11.5-14.5 [facility]ptownHoaezepMZKVLNVGXD8923-82-66 10:58:00 Test Item Value Reference Range Interpretation Comments MCHC (test code = MCHC) 31.7 32.0-36.0 [facility] UptownEfnistnPKLILPGEUH1124-58-98 10:58:00 Test Item Value Reference Range Interpretation Comments Platelet (test code = Platelet) 242 133-450 [facility]2015-12-18 10:58:00 Test Item Value Reference Range Interpretation Comments eGFR (test code = eGFR) 126 [facility]2015-12-18 10:58:00 Test Item Value Reference Range Interpretation Comments AST (test code = AST) 29 See_Comment [Auto mated message] The system which ge nerated this result transmit arvind reference range : <=37. The reference range was not used to interpr et this result as mario l/abnormal. [facility]2015-12-18 10:58:00 Test Item Value Reference Range Interpretation Comments Alk Phos (test code = Alk Phos) 86 39-136 [facility]2015-12-18 10:58:00 Test Item Value Reference Range Interpretation Comments Bili Total (test code = Bili Total) 0.3 0.2-1.3 [facility]2015-12-18 10:58:00 Test Item Value Reference Range Interpretation Comments ALT (test code = ALT) 50 See_Comment [Auto mated message] The system which ge nerated this result transmit arvind reference range : <=65. The reference range was not used to interpr et this result as mario l/abnormal. [facility]2015-12-18 10:58:00 Test Item Value Reference Range Interpretation Comments Sodium Lvl (test code = Sodium Lvl) 136 135-145 [facility]2015-12-18 10:58:00 Test Item Value Reference Range Interpretation Comments Potassium Lvl (test code = Potassium 4.0 3.5-5.1 Lvl) [facility]2015-12-18 10:58:00 Test Item Value Reference Range Interpretation Comments Creatinine Lvl (test code = Creatinine 0.62 0.50-1.40 Lvl) [facility]2015-12-18 10:58:00 Test Item Value Reference Range Interpretation Comments Glucose Lvl (test code = Glucose Lvl) 101 70-99 [facility]2015-12-18 10:58:00 Test Item Value Reference Range Interpretation Comments BUN (test code = BUN) 5 7-22 [facility]2015-12-18 10:58:00 Test Item Value Reference Range Interpretation Comments Total Protein (test code = Total 5.8 6.4-8.4 Protein) [facility]2015-12-18 10:58:00 Test Item Value Reference Range Interpretation Comments Albumin Lvl (test code = Albumin Lvl) 3.2 3.5-5.0 [facility]2015-12-18 10:58:00 Test Item Value Reference Range Interpretation Comments Chloride Lvl (test code = Chloride Lvl) 100 95-109 [facility]2015-12-18 10:58:00 Test Item Value Reference Range Interpretation Comments Calcium Lvl (test code = Calcium Lvl) 8.6 8.5-10.5 [facility]2015-12-18 10:58:00 Test Item Value Reference Range Interpretation Comments CO2 (test code = CO2) 27 24-32 [facility]2015-12-18 10:58:00 Test Item Value Reference Range Interpretation Comments B/C Ratio (test code = B/C Ratio) 8 6-25 [facility]2015-12-18 10:58:00 Test Item Value Reference Range Interpretation Comments Globulin (test code = Globulin) 2.6 2.0-4.0 [facility]2015-12-18 10:58:00 Test Item Value Reference Range Interpretation Comments A/G Ratio (test code = A/G Ratio) 1.2 0.7-1.6 [facility]2015-12-18 10:58:00 Test Item Value Reference Range Interpretation Comments AGAP (test code = AGAP) 13.0 10.0-20.0 [facility]ownXnbavkxBLDTPUGHFQ8268-94-40 10:58:00 Test Item Value Reference Range Interpretation Comments Segs (test code = Segs) 74.2 45.0-75.0 [facility] UptownRynbdtfOIYEPKTGXD4183-68-31 10:58:00 Test Item Value Reference Range Interpretation Comments Lymphocytes (test code = Lymphocytes) 18.3 20.0-40.0 [facility] UptownVjmmwrgGSZLSNHGDX7392-37-20 10:58:00 Test Item Value Reference Range Interpretation Comments Monocytes (test code = Monocytes) 7.0 2.0-12.0 [facility] UptownBkdigjbQFMMENMHSE9782-04-59 10:58:00 Test Item Value Reference Range Interpretation Comments Basophils (test code = 0.3 See_Comment [Aut omated message] The Basophils) system which ge nerated this result tra nsmitted reference range : <=1.0. The reference r kat was not used to int erpret this result as normal/abnormal . [facility] UptownRlqudyuGBIICQLKDU4787-48-47 10:58:00 Test Item Value Reference Range Interpretation Comments Segs-Bands # (test code = Segs-Bands #) 8.1 1.5-8.1 [facility]ptownYcokkzdRURSYGJPMJ2202-33-98 10:58:00 Test Item Value Reference Range Interpretation Comments Eosinophils (test code = 0.2 See_Comment [A utomated message] The Eosinophils) system which ge nerated this result tra nsmitted reference range : <=4.0. The reference r kat was not used to int erpret this result as normal/abnormal . [facility]ptownHxofpnaRJPXWPKKBE2823-70-14 10:58:00 Test Item Value Reference Range Interpretation Comments Monocytes # (test code 0.8 See_Comment [Aut omated message] The = Monocytes #) system which generated this result tra nsmitted reference range : <=0.8. The reference r kat was not used to int erpret this result as normal/abnormal . [facility]ownGepxckuDCQENQCGYT1253-24-01 10:58:00 Test Item Value Reference Range Interpretation Comments Lymphocytes # (test code = Lymphocytes 2.0 1.0-5.5 #) [facility] UptownAcobsorPLAMRSMJSR0003-04-22 10:58:00 Test Item Value Reference Range Interpretation Comments Microcyte (test code = 1+ *ABN*(08/16/15 Microcyte) 4:58 AM) [facility] UptownAoshumbTYJJEIGTBX5997-87-96 10:58:00 Test Item Value Reference Range Interpretation Comments MPV (test code = MPV) 8.9 7.4-10.4 [facility] UptownKnxotoeWSWHJRKYWK2196-57-09 10:58:00 Test Item Value Reference Range Interpretation Comments MCV (test code = MCV) 77.3 80.0-98.0 [facility] UptownXvpptumWOJFTBARGU9876-93-02 10:58:00 Test Item Value Reference Range Interpretation Comments Hgb (test code = Hgb) 11.9 12.0-16.0 [facility] UptownFujscvjNAGJGOKKNG3146-89-20 10:58:00 Test Item Value Reference Range Interpretation Comments Hct (test code = Hct) 37.5 36.0-48.0 [facility] UptownKoczdzxYFKYINWWIF8502-87-06 10:58:00 Test Item Value Reference Range Interpretation Comments MCH (test code = MCH) 24.5 pg 27.0-31.0 [facility] UptownVrgnwqiVRNKWXORNZ9885-59-27 10:58:00 Test Item Value Reference Range Interpretation Comments RBC (test code = RBC) 4.85 4.20-5.40 [facility] UptownGvjvywpBJUFDOTMRC2206-67-89 10:58:00 Test Item Value Reference Range Interpretation Comments WBC (test code = WBC) 10.9 3.7-10.4 [facility] UptownPlavglpPMXPITHEDQ6240-67-28 10:58:00 Test Item Value Reference Range Interpretation Comments RDW (test code = RDW) 15.9 11.5-14.5 [facility] UptownIrfpoqiZSNYQLGGHJ0007-77-94 10:58:00 Test Item Value Reference Range Interpretation Comments MCHC (test code = MCHC) 31.7 32.0-36.0 [facility] UptownKjeckshWJYJIZELKC4147-49-15 10:58:00 Test Item Value Reference Range Interpretation Comments Platelet (test code = Platelet) 242 133-450 [facility] JJGAQ7451-66-05 10:58:00 Test Item Value Reference Range Interpretation Comments eGFR (test code = eGFR) 126 [facility] NHYJS9320-17-39 10:58:00 Test Item Value Reference Range Interpretation Comments AST (test code = AST) 29 See_Comment [Auto mated message] The system which ge nerated this result transmit arvind reference range : <=37. The reference range was not used to interpr et this result as mario l/abnormal. [facility]2015-12-18 10:58:00 Test Item Value Reference Range Interpretation Comments Alk Phos (test code = Alk Phos) 86 39-136 [facility]2015-12-18 10:58:00 Test Item Value Reference Range Interpretation Comments Bili Total (test code = Bili Total) 0.3 0.2-1.3 [facility]2015-12-18 10:58:00 Test Item Value Reference Range Interpretation Comments ALT (test code = ALT) 50 See_Comment [Auto mated message] The system which ge nerated this result transmit arvind reference range : <=65. The reference range was not used to interpr et this result as mario l/abnormal. [facility]2015-12-18 10:58:00 Test Item Value Reference Range Interpretation Comments Sodium Lvl (test code = Sodium Lvl) 136 135-145 [facility]2015-12-18 10:58:00 Test Item Value Reference Range Interpretation Comments Potassium Lvl (test code = Potassium 4.0 3.5-5.1 Lvl) [facility]2015-12-18 10:58:00 Test Item Value Reference Range Interpretation Comments Creatinine Lvl (test code = Creatinine 0.62 0.50-1.40 Lvl) [facility]2015-12-18 10:58:00 Test Item Value Reference Range Interpretation Comments Glucose Lvl (test code = Glucose Lvl) 101 70-99 [facility]2015-12-18 10:58:00 Test Item Value Reference Range Interpretation Comments BUN (test code = BUN) 5 7-22 [facility]2015-12-18 10:58:00 Test Item Value Reference Range Interpretation Comments Total Protein (test code = Total 5.8 6.4-8.4 Protein) [facility]2015-12-18 10:58:00 Test Item Value Reference Range Interpretation Comments Albumin Lvl (test code = Albumin Lvl) 3.2 3.5-5.0 [facility]2015-12-18 10:58:00 Test Item Value Reference Range Interpretation Comments Chloride Lvl (test code = Chloride Lvl) 100 95-109 [facility]2015-12-18 10:58:00 Test Item Value Reference Range Interpretation Comments Calcium Lvl (test code = Calcium Lvl) 8.6 8.5-10.5 [facility]2015-12-18 10:58:00 Test Item Value Reference Range Interpretation Comments CO2 (test code = CO2) 27 24-32 [facility]2015-12-18 10:58:00 Test Item Value Reference Range Interpretation Comments B/C Ratio (test code = B/C Ratio) 8 6-25 [facility]2015-12-18 10:58:00 Test Item Value Reference Range Interpretation Comments Globulin (test code = Globulin) 2.6 2.0-4.0 [facility]2015-12-18 10:58:00 Test Item Value Reference Range Interpretation Comments A/G Ratio (test code = A/G Ratio) 1.2 0.7-1.6 [facility]2015-12-18 10:58:00 Test Item Value Reference Range Interpretation Comments AGAP (test code = AGAP) 13.0 10.0-20.0 [facility]WpxnvusZWXSWWUNRF6243-09-37 10:58:00 Test Item Value Reference Range Interpretation Comments Segs (test code = Segs) 74.2 45.0-75.0 [facility]ptownCvkkhgfWMFXHPMLMA3259-01-42 10:58:00 Test Item Value Reference Range Interpretation Comments Lymphocytes (test code = Lymphocytes) 18.3 20.0-40.0 [facility] UptownIemxrxoLVHRWQBFHO6131-09-92 10:58:00 Test Item Value Reference Range Interpretation Comments Monocytes (test code = Monocytes) 7.0 2.0-12.0 [facility]ownEwyjpraPNBKWRXVSK9866-09-73 10:58:00 Test Item Value Reference Range Interpretation Comments Basophils (test code = 0.3 See_Comment [Aut omated message] The Basophils) system which ge nerated this result tra nsmitted reference range : <=1.0. The reference r kat was not used to int erpret this result as normal/abnormal . [facility]ptownQsmdrnmVNXXBMHDTE1569-89-12 10:58:00 Test Item Value Reference Range Interpretation Comments Segs-Bands # (test code = Segs-Bands #) 8.1 1.5-8.1 [facility]ptownWyekhwmVVPWZEMXSW7024-30-09 10:58:00 Test Item Value Reference Range Interpretation Comments Eosinophils (test code = 0.2 See_Comment [A utomated message] The Eosinophils) system which ge nerated this result tra nsmitted reference range : <=4.0. The reference r kat was not used to int erpret this result as normal/abnormal . [facility]ptownIjcvvjeVHQHXBLMJV8062-78-92 10:58:00 Test Item Value Reference Range Interpretation Comments Monocytes # (test code 0.8 See_Comment [Aut omated message] The = Monocytes #) system which generated this result tra nsmitted reference range : <=0.8. The reference r kat was not used to int erpret this result as normal/abnormal . [facility] UptownDkhakgoQQJMTHRNZQ6111-63-36 10:58:00 Test Item Value Reference Range Interpretation Comments Lymphocytes # (test code = Lymphocytes 2.0 1.0-5.5 #) [facility] UptownVvjfylvYODUGPASOY5976-66-79 10:58:00 Test Item Value Reference Range Interpretation Comments Microcyte (test code = 1+ *ABN*(08/16/15 Microcyte) 4:58 AM) [facility] UptownBetyckkXYXXSRABWU0193-28-59 10:58:00 Test Item Value Reference Range Interpretation Comments MPV (test code = MPV) 8.9 7.4-10.4 [facility] UptownJwouasdZQAINTQREC7763-24-23 10:58:00 Test Item Value Reference Range Interpretation Comments MCV (test code = MCV) 77.3 80.0-98.0 [facility] UptownWhfltndTWGWDKNTNJ5120-02-98 10:58:00 Test Item Value Reference Range Interpretation Comments Hgb (test code = Hgb) 11.9 12.0-16.0 [facility] UptownKjebffmSFUAYVHGZG2564-43-71 10:58:00 Test Item Value Reference Range Interpretation Comments Hct (test code = Hct) 37.5 36.0-48.0 [facility]ptownWijxwduMZTPAYZESD6892-14-30 10:58:00 Test Item Value Reference Range Interpretation Comments MCH (test code = MCH) 24.5 pg 27.0-31.0 [facility] UptownMevazmqOVEVWQMCXJ5799-90-07 10:58:00 Test Item Value Reference Range Interpretation Comments RBC (test code = RBC) 4.85 4.20-5.40 [facility]ptownUzvrcgeKLWQWDPBTW8773-42-70 10:58:00 Test Item Value Reference Range Interpretation Comments WBC (test code = WBC) 10.9 3.7-10.4 [facility] UptownBmxkjmgGDQDYHHULO5863-87-71 10:58:00 Test Item Value Reference Range Interpretation Comments RDW (test code = RDW) 15.9 11.5-14.5 [facility]ptownWnrpjxsQVXXLWPVDE9300-23-77 10:58:00 Test Item Value Reference Range Interpretation Comments MCHC (test code = MCHC) 31.7 32.0-36.0 [facility] UptownVazfeywGCVOEOKJTY1756-55-61 10:58:00 Test Item Value Reference Range Interpretation Comments Platelet (test code = Platelet) 242 133-450 [facility]2015-12-18 10:58:00 Test Item Value Reference Range Interpretation Comments eGFR (test code = eGFR) 126 [facility]2015-12-18 10:58:00 Test Item Value Reference Range Interpretation Comments AST (test code = AST) 29 See_Comment [Auto mated message] The system which ge nerated this result transmit arvind reference range : <=37. The reference range was not used to interpr et this result as mario l/abnormal. [facility]2015-12-18 10:58:00 Test Item Value Reference Range Interpretation Comments Alk Phos (test code = Alk Phos) 86 39-136 [facility]2015-12-18 10:58:00 Test Item Value Reference Range Interpretation Comments Bili Total (test code = Bili Total) 0.3 0.2-1.3 [facility]2015-12-18 10:58:00 Test Item Value Reference Range Interpretation Comments ALT (test code = ALT) 50 See_Comment [Auto mated message] The system which ge nerated this result transmit arvind reference range : <=65. The reference range was not used to interpr et this result as mario l/abnormal. [facility]2015-12-18 10:58:00 Test Item Value Reference Range Interpretation Comments Sodium Lvl (test code = Sodium Lvl) 136 135-145 [facility]2015-12-18 10:58:00 Test Item Value Reference Range Interpretation Comments Potassium Lvl (test code = Potassium 4.0 3.5-5.1 Lvl) [facility]2015-12-18 10:58:00 Test Item Value Reference Range Interpretation Comments Creatinine Lvl (test code = Creatinine 0.62 0.50-1.40 Lvl) [facility]2015-12-18 10:58:00 Test Item Value Reference Range Interpretation Comments Glucose Lvl (test code = Glucose Lvl) 101 70-99 [facility]2015-12-18 10:58:00 Test Item Value Reference Range Interpretation Comments BUN (test code = BUN) 5 7-22 [facility]2015-12-18 10:58:00 Test Item Value Reference Range Interpretation Comments Total Protein (test code = Total 5.8 6.4-8.4 Protein) [facility]2015-12-18 10:58:00 Test Item Value Reference Range Interpretation Comments Albumin Lvl (test code = Albumin Lvl) 3.2 3.5-5.0 [facility]2015-12-18 10:58:00 Test Item Value Reference Range Interpretation Comments Chloride Lvl (test code = Chloride Lvl) 100 95-109 [facility]2015-12-18 10:58:00 Test Item Value Reference Range Interpretation Comments Calcium Lvl (test code = Calcium Lvl) 8.6 8.5-10.5 [facility]2015-12-18 10:58:00 Test Item Value Reference Range Interpretation Comments CO2 (test code = CO2) 27 24-32 [facility]2015-12-18 10:58:00 Test Item Value Reference Range Interpretation Comments B/C Ratio (test code = B/C Ratio) 8 6-25 [facility]2015-12-18 10:58:00 Test Item Value Reference Range Interpretation Comments Globulin (test code = Globulin) 2.6 2.0-4.0 [facility]2015-12-18 10:58:00 Test Item Value Reference Range Interpretation Comments A/G Ratio (test code = A/G Ratio) 1.2 0.7-1.6 [facility]2015-12-18 10:58:00 Test Item Value Reference Range Interpretation Comments AGAP (test code = AGAP) 13.0 10.0-20.0 [facility] UptownDrkkhepBRWAZFKAHW6150-47-92 10:58:00 Test Item Value Reference Range Interpretation Comments Segs (test code = Segs) 74.2 45.0-75.0 [facility] UptownWqeacfnHSOENYMEIY3465-57-30 10:58:00 Test Item Value Reference Range Interpretation Comments Lymphocytes (test code = Lymphocytes) 18.3 20.0-40.0 [facility] UptownSzhlpmdNFDEEFDNCL6420-05-79 10:58:00 Test Item Value Reference Range Interpretation Comments Monocytes (test code = Monocytes) 7.0 2.0-12.0 [facility] UptownZfxphtvWHUBAENFKY3154-78-16 10:58:00 Test Item Value Reference Range Interpretation Comments Basophils (test code = 0.3 See_Comment [Aut omated message] The Basophils) system which ge nerated this result tra nsmitted reference range : <=1.0. The reference r kat was not used to int erpret this result as normal/abnormal . [facility] UptownYrbivywCZRLROAWIA2113-27-81 10:58:00 Test Item Value Reference Range Interpretation Comments Segs-Bands # (test code = Segs-Bands #) 8.1 1.5-8.1 [facility] UptownDnsysraPEZZRONHVS2041-79-29 10:58:00 Test Item Value Reference Range Interpretation Comments Eosinophils (test code = 0.2 See_Comment [A utomated message] The Eosinophils) system which ge nerated this result tra nsmitted reference range : <=4.0. The reference r kat was not used to int erpret this result as normal/abnormal . [facility] UptownYyfavovNNLQQHZWDF0755-18-55 10:58:00 Test Item Value Reference Range Interpretation Comments Monocytes # (test code 0.8 See_Comment [Aut omated message] The = Monocytes #) system which generated this result tra nsmitted reference range : <=0.8. The reference r kat was not used to int erpret this result as normal/abnormal . [facility] UptownPezvjzsMWZBZQFMJO3745-69-09 10:58:00 Test Item Value Reference Range Interpretation Comments Lymphocytes # (test code = Lymphocytes 2.0 1.0-5.5 #) [facility] UptownZvgngvbADTMLKTKVG9546-73-39 10:58:00 Test Item Value Reference Range Interpretation Comments Microcyte (test code = 1+ *ABN*(08/16/15 Microcyte) 4:58 AM) [facility]ptownSjppvafIUAQDUMCGR8277-61-15 10:58:00 Test Item Value Reference Range Interpretation Comments MPV (test code = MPV) 8.9 7.4-10.4 [facility] UptownWazsttuHFWNXYHNGU6664-72-38 10:58:00 Test Item Value Reference Range Interpretation Comments MCV (test code = MCV) 77.3 80.0-98.0 [facility] UptownGesfzwdWXPKXXISUM5653-70-54 10:58:00 Test Item Value Reference Range Interpretation Comments Hgb (test code = Hgb) 11.9 12.0-16.0 [facility] UptownPcogsnzHHWAQESQPU2507-34-34 10:58:00 Test Item Value Reference Range Interpretation Comments Hct (test code = Hct) 37.5 36.0-48.0 [facility] UptownCuessyjTTMWIGSENF7277-41-34 10:58:00 Test Item Value Reference Range Interpretation Comments MCH (test code = MCH) 24.5 pg 27.0-31.0 [facility] UptownSxkwmvzGRFIHMXHLM0185-02-41 10:58:00 Test Item Value Reference Range Interpretation Comments RBC (test code = RBC) 4.85 4.20-5.40 [facility] UptownSyczfjmZCOHMILXUM7673-05-43 10:58:00 Test Item Value Reference Range Interpretation Comments WBC (test code = WBC) 10.9 3.7-10.4 [facility] UptownKeiydgsDSYDZUTEUO8942-77-25 10:58:00 Test Item Value Reference Range Interpretation Comments RDW (test code = RDW) 15.9 11.5-14.5 [facility] UptownEqztywuPYHUFOJGSF4463-00-32 10:58:00 Test Item Value Reference Range Interpretation Comments MCHC (test code = MCHC) 31.7 32.0-36.0 [facility] UptownZaaipfeZZRSMVMWQF3524-10-43 10:58:00 Test Item Value Reference Range Interpretation Comments Platelet (test code = Platelet) 242 133-450 [facility]2015-12-14 15:29:00 Test Item Value Reference Range Interpretation Comments eGFR (test code = eGFR) 101 [facility]2015-12-14 15:29:00 Test Item Value Reference Range Interpretation Comments Creatinine Lvl (test code = Creatinine 0.81 0.50-1.40 Lvl) [facility]2015-12-14 15:29:00 Test Item Value Reference Range Interpretation Comments CO2 (test code = CO2) 27 24-32 [facility]2015-12-14 15:29:00 Test Item Value Reference Range Interpretation Comments Calcium Lvl (test code = Calcium Lvl) 9.7 8.5-10.5 [facility]2015-12-14 15:29:00 Test Item Value Reference Range Interpretation Comments Chloride Lvl (test code = Chloride Lvl) 100 95-109 [facility]2015-12-14 15:29:00 Test Item Value Reference Range Interpretation Comments BUN (test code = BUN) 13 7-22 [facility]2015-12-14 15:29:00 Test Item Value Reference Range Interpretation Comments Glucose Lvl (test code = Glucose Lvl) 89 70-99 [facility]2015-12-14 15:29:00 Test Item Value Reference Range Interpretation Comments Potassium Lvl (test code = Potassium 4.2 3.5-5.1 Lvl) [facility]2015-12-14 15:29:00 Test Item Value Reference Range Interpretation Comments Sodium Lvl (test code = Sodium Lvl) 134 135-145 [facility]2015-12-14 15:29:00 Test Item Value Reference Range Interpretation Comments AGAP (test code = AGAP) 11.2 10.0-20.0 [facility] UptownUzwxbecAPGUICOKSE7754-16-56 15:29:00 Test Item Value Reference Range Interpretation Comments MPV (test code = MPV) 9.2 7.4-10.4 [facility] UptownNdgodcwZOPTYGXTQC0352-40-95 15:29:00 Test Item Value Reference Range Interpretation Comments Platelet (test code = Platelet) 307 133-450 [facility] UptownLgmayblKXUFECIFUB4558-90-91 15:29:00 Test Item Value Reference Range Interpretation Comments MCH (test code = MCH) 24.3 pg 27.0-31.0 [facility] UptownHppblasVXPRVVFTHV6633-68-83 15:29:00 Test Item Value Reference Range Interpretation Comments RDW (test code = RDW) 15.7 11.5-14.5 [facility] UptownYexlqxqXICPEKUIIR7942-95-38 15:29:00 Test Item Value Reference Range Interpretation Comments MCHC (test code = MCHC) 31.2 32.0-36.0 [facility] UptownVyzpmtaFVLSWBGDEW5740-44-63 15:29:00 Test Item Value Reference Range Interpretation Comments MCV (test code = MCV) 78.0 80.0-98.0 [facility] UptownQwlwafeYPIQBXFXZB0832-09-85 15:29:00 Test Item Value Reference Range Interpretation Comments WBC (test code = WBC) 8.6 3.7-10.4 [facility] UptownPydildzPVKESKTDIM3195-75-28 15:29:00 Test Item Value Reference Range Interpretation Comments Hgb (test code = Hgb) 13.2 12.0-16.0 [facility] UptownKahdkmvFDBKOHPLZO3211-22-58 15:29:00 Test Item Value Reference Range Interpretation Comments RBC (test code = RBC) 5.41 4.20-5.40 [facility] UptownFbqtdukPFTGRYPZCZ7368-65-64 15:29:00 Test Item Value Reference Range Interpretation Comments Hct (test code = Hct) 42.1 36.0-48.0 [facility] UptownYirebazYRSJHGDWZZ4449-82-95 15:29:00 Test Item Value Reference Range Interpretation Comments Lymphocytes # (test code = Lymphocytes 3.2 1.0-5.5 #) [facility] UptownOwvfcxdSYNGOYXULZ4022-23-89 15:29:00 Test Item Value Reference Range Interpretation Comments Eosinophils # (test code 0.1 See_Comment [A utomated message] The = Eosinophils #) system [facility] h generated this result tra nsmitted reference range : <=0.5. The reference r kat was not used to int erpret this result as normal/abnormal . [facility] UptownEglgrvfPQTVNISLPQ9275-61-19 15:29:00 Test Item Value Reference Range Interpretation Comments Monocytes # (test code 0.8 See_Comment [Aut omated message] The = Monocytes #) system which generated this result tra nsmitted reference range : <=0.8. The reference r kat was not used to int erpret this result as normal/abnormal . [facility] UptownTnhypteBPZZUBNFXD1146-32-54 15:29:00 Test Item Value Reference Range Interpretation Comments Basophils (test code = 0.7 See_Comment [Aut omated message] The Basophils) system which ge nerated this result tra nsmitted reference range : <=1.0. The reference r kat was not used to int erpret this result as normal/abnormal . [facility] UptownZsocqssWTSLNJWNTZ2148-54-71 15:29:00 Test Item Value Reference Range Interpretation Comments Segs-Bands # (test code = Segs-Bands #) 4.4 1.5-8.1 [facility]JbhslpbCCJPPWSDUU5648-53-42 15:29:00 Test Item Value Reference Range Interpretation Comments Eosinophils (test code = 1.2 See_Comment [A utomated message] The Eosinophils) system which ge nerated this result tra nsmitted reference range : <=4.0. The reference r kat was not used to int erpret this result as normal/abnormal . [facility]ouhkUTXSJHWBLC7113-40-19 15:29:00 Test Item Value Reference Range Interpretation Comments Lymphocytes (test code = Lymphocytes) 37.4 20.0-40.0 [facility] MpcgpnrHMJWQSVEFD5074-92-40 15:29:00 Test Item Value Reference Range Interpretation Comments Monocytes (test code = Monocytes) 8.9 2.0-12.0 [facility] CenterZdqrnjuTXYBNOWJQV2522-56-02 15:29:00 Test Item Value Reference Range Interpretation Comments Segs (test code = Segs) 51.8 45.0-75.0 [facility] YwclxbrAEECUIKMAX5527-00-03 15:29:00 Test Item Value Reference Range Interpretation Comments Microcyte (test code = 1+ *ABN*(08/12/15 Microcyte) 9:29 AM) [facility] CenterNimhmfvLQVAMTYZJW5288-38-27 15:29:00 Test Item Value Reference Range Interpretation Comments Basophils # (test code 0.1 See_Comment [Aut omated message] The = Basophils #) system which generated this result tra nsmitted reference range : <=0.2. The reference r kat was not used to int erpret this result as normal/abnormal . [facility] CenterannURINE UTAS0526-90-32 15:29:00 Test Item Value Reference Range Interpretation Comments U Preg (test code = U Negative (08/12/15 9:29 Preg) AM) [facility] JPSJF4585-76-69 15:29:00 Test Item Value Reference Range Interpretation Comments eGFR (test code = eGFR) 101 [facility]annCHE[facility] ETZQL1582-96-02 15:29:00 Test Item Value Reference Range Interpretation Comments Creatinine Lvl (test code = Creatinine 0.81 0.50-1.40 Lvl) [facility]CHE[facility] IFWJO0833-01-77 15:29:00 Test Item Value Reference Range Interpretation Comments CO2 (test code = CO2) 27 24-32 [facility]2015-12-14 15:29:00 Test Item Value Reference Range Interpretation Comments Calcium Lvl (test code = Calcium Lvl) 9.7 8.5-10.5 [facility]2015-12-14 15:29:00 Test Item Value Reference Range Interpretation Comments Chloride Lvl (test code = Chloride Lvl) 100 95-109 [facility]2015-12-14 15:29:00 Test Item Value Reference Range Interpretation Comments BUN (test code = BUN) 13 7-22 [facility]2015-12-14 15:29:00 Test Item Value Reference Range Interpretation Comments Glucose Lvl (test code = Glucose Lvl) 89 70-99 [facility]2015-12-14 15:29:00 Test Item Value Reference Range Interpretation Comments Potassium Lvl (test code = Potassium 4.2 3.5-5.1 Lvl) [facility]2015-12-14 15:29:00 Test Item Value Reference Range Interpretation Comments Sodium Lvl (test code = Sodium Lvl) 134 135-145 [facility]2015-12-14 15:29:00 Test Item Value Reference Range Interpretation Comments AGAP (test code = AGAP) 11.2 10.0-20.0 [facility] UptownObcnsgpQMKRZXAMVT1810-38-43 15:29:00 Test Item Value Reference Range Interpretation Comments MPV (test code = MPV) 9.2 7.4-10.4 [facility] UptownDslyndoLKSKCGPSHE6892-34-93 15:29:00 Test Item Value Reference Range Interpretation Comments Platelet (test code = Platelet) 307 133-450 [facility] UptownAsugxteXIIXTBZASK5823-73-66 15:29:00 Test Item Value Reference Range Interpretation Comments MCH (test code = MCH) 24.3 pg 27.0-31.0 [facility] UptownErcdptpMQFWDQIDXT6487-55-48 15:29:00 Test Item Value Reference Range Interpretation Comments RDW (test code = RDW) 15.7 11.5-14.5 [facility] UptownVdoowqzGVTBMNTCKS5313-88-86 15:29:00 Test Item Value Reference Range Interpretation Comments MCHC (test code = MCHC) 31.2 32.0-36.0 [facility] UptownInfdxphIVSKKVMMVS7014-40-48 15:29:00 Test Item Value Reference Range Interpretation Comments MCV (test code = MCV) 78.0 80.0-98.0 [facility] UptownRzivxhgFOBYVDOWYU6644-80-73 15:29:00 Test Item Value Reference Range Interpretation Comments WBC (test code = WBC) 8.6 3.7-10.4 [facility] UptownDyeruxzJEOVIWGMZB5285-37-63 15:29:00 Test Item Value Reference Range Interpretation Comments Hgb (test code = Hgb) 13.2 12.0-16.0 [facility] UptownFynjqvsFXRFDPOATY4848-19-41 15:29:00 Test Item Value Reference Range Interpretation Comments RBC (test code = RBC) 5.41 4.20-5.40 [facility] UptownHwrxvbyBASXPMGRKC6431-75-75 15:29:00 Test Item Value Reference Range Interpretation Comments Hct (test code = Hct) 42.1 36.0-48.0 [facility] UptownOnuiglgURCUGORVOT2597-83-59 15:29:00 Test Item Value Reference Range Interpretation Comments Lymphocytes # (test code = Lymphocytes 3.2 1.0-5.5 #) [facility] UptownQofnacwZGVZUDPNRW7976-38-25 15:29:00 Test Item Value Reference Range Interpretation Comments Eosinophils # (test code 0.1 See_Comment [A utomated message] The = Eosinophils #) system whic h generated this result tra nsmitted reference range : <=0.5. The reference r kat was not used to int erpret this result as normal/abnormal . [facility] UptownAhmjrjrWXZGHMYVKD5698-80-44 15:29:00 Test Item Value Reference Range Interpretation Comments Monocytes # (test code 0.8 See_Comment [Aut omated message] The = Monocytes #) system which generated this result tra nsmitted reference range : <=0.8. The reference r kat was not used to int erpret this result as normal/abnormal . [facility] UptownKiidskuQFXMZPZWPL9488-79-81 15:29:00 Test Item Value Reference Range Interpretation Comments Basophils (test code = 0.7 See_Comment [Aut omated message] The Basophils) system which ge nerated this result tra nsmitted reference range : <=1.0. The reference r kat was not used to int erpret this result as normal/abnormal . [facility] UptownYyelulhSLTSXIRERP9893-58-20 15:29:00 Test Item Value Reference Range Interpretation Comments Segs-Bands # (test code = Segs-Bands #) 4.4 1.5-8.1 [facility]NfahrgsNFPUHUJGAX0035-35-41 15:29:00 Test Item Value Reference Range Interpretation Comments Eosinophils (test code = 1.2 See_Comment [A utomated message] The Eosinophils) system which ge nerated this result tra nsmitted reference range : <=4.0. The reference r kat was not used to int erpret this result as normal/abnormal . [facility] CenterIwodlywMTOBNNANVE3753-62-87 15:29:00 Test Item Value Reference Range Interpretation Comments Lymphocytes (test code = Lymphocytes) 37.4 20.0-40.0 [facility] CenterGggyhbzXAGFPGXADZ0031-88-46 15:29:00 Test Item Value Reference Range Interpretation Comments Monocytes (test code = Monocytes) 8.9 2.0-12.0 [facility] HealthUkcihccSFDKXRRXID0134-83-39 15:29:00 Test Item Value Reference Range Interpretation Comments Segs (test code = Segs) 51.8 45.0-75.0 [facility] CenterDarecjhOHJEJFICOL4052-61-03 15:29:00 Test Item Value Reference Range Interpretation Comments Microcyte (test code = 1+ *ABN*(08/12/15 Microcyte) 9:29 AM) [facility] HealthGyivolpHBDXUEXBSD0194-08-11 15:29:00 Test Item Value Reference Range Interpretation Comments Basophils # (test code 0.1 See_Comment [Aut omated message] The = Basophils #) system which generated this result tra nsmitted reference range : <=0.2. The reference r kat was not used to int erpret this result as normal/abnormal . [facility] [id number] 15:29:00 Test Item Value Reference Range Interpretation Comments U Preg (test code = U Negative (08/12/15 9:29 Preg) AM) [facility]annCHEM [id number] 15:29:00 Test Item Value Reference Range Interpretation Comments eGFR (test code = eGFR) 101 [facility]annCHEM [id number] 15:29:00 Test Item Value Reference Range Interpretation Comments Creatinine Lvl (test code = Creatinine 0.81 0.50-1.40 Lvl) [facility]annCHEM [id number] 15:29:00 Test Item Value Reference Range Interpretation Comments CO2 (test code = CO2) 27 24-32 [facility]2015-12-14 15:29:00 Test Item Value Reference Range Interpretation Comments Calcium Lvl (test code = Calcium Lvl) 9.7 8.5-10.5 [facility]2015-12-14 15:29:00 Test Item Value Reference Range Interpretation Comments Chloride Lvl (test code = Chloride Lvl) 100 95-109 [facility]2015-12-14 15:29:00 Test Item Value Reference Range Interpretation Comments BUN (test code = BUN) 13 7-22 [facility]2015-12-14 15:29:00 Test Item Value Reference Range Interpretation Comments Glucose Lvl (test code = Glucose Lvl) 89 70-99 [facility]2015-12-14 15:29:00 Test Item Value Reference Range Interpretation Comments Potassium Lvl (test code = Potassium 4.2 3.5-5.1 Lvl) [facility]2015-12-14 15:29:00 Test Item Value Reference Range Interpretation Comments Sodium Lvl (test code = Sodium Lvl) 134 135-145 [facility]2015-12-14 15:29:00 Test Item Value Reference Range Interpretation Comments AGAP (test code = AGAP) 11.2 10.0-20.0 [facility] UptownVwkvrtsDXMSDQXVIG7224-05-02 15:29:00 Test Item Value Reference Range Interpretation Comments MPV (test code = MPV) 9.2 7.4-10.4 [facility] UptownBwzolxxMRATXOYKOC2723-21-25 15:29:00 Test Item Value Reference Range Interpretation Comments Platelet (test code = Platelet) 307 133-450 [facility] UptownIeidynwTDCRBAXSER0408-33-40 15:29:00 Test Item Value Reference Range Interpretation Comments MCH (test code = MCH) 24.3 pg 27.0-31.0 [facility] UptownDhqgzfsNFXTRNAVXV8254-63-20 15:29:00 Test Item Value Reference Range Interpretation Comments RDW (test code = RDW) 15.7 11.5-14.5 [facility] UptownJvxqpwhLTDDCTUQER7092-19-31 15:29:00 Test Item Value Reference Range Interpretation Comments MCHC (test code = MCHC) 31.2 32.0-36.0 [place] [id number] 15:29:00 Test Item Value Reference Range Interpretation Comments MCV (test code = MCV) 78.0 80.0-98.0 [facility] UptownWqgxkajSQYWSVOPJB9760-96-52 15:29:00 Test Item Value Reference Range Interpretation Comments WBC (test code = WBC) 8.6 3.7-10.4 [facility] UptownLfncngrDQQHZNMZVE5078-75-94 15:29:00 Test Item Value Reference Range Interpretation Comments Hgb (test code = Hgb) 13.2 12.0-16.0 [facility] UptownZwzjrrqHNSKXLUALN4491-82-54 15:29:00 Test Item Value Reference Range Interpretation Comments RBC (test code = RBC) 5.41 4.20-5.40 [facility] UptownYbwhwvjXYNBILSRKW0610-92-00 15:29:00 Test Item Value Reference Range Interpretation Comments Hct (test code = Hct) 42.1 36.0-48.0 [facility] UptownBvgjcgrLIVRKEDFNR9755-55-50 15:29:00 Test Item Value Reference Range Interpretation Comments Lymphocytes # (test code = Lymphocytes 3.2 1.0-5.5 #) [facility] UptownFhgwgakQDBAKRKBKI1857-50-47 15:29:00 Test Item Value Reference Range Interpretation Comments Eosinophils # (test code 0.1 See_Comment [A utomated message] The = Eosinophils #) system whic h generated this result tra nsmitted reference range : <=0.5. The reference r kat was not used to int erpret this result as normal/abnormal . [facility] UptownXmobzflJXNPMIKALB0093-75-60 15:29:00 Test Item Value Reference Range Interpretation Comments Monocytes # (test code 0.8 See_Comment [Aut omated message] The = Monocytes #) system which generated this result tra nsmitted reference range : <=0.8. The reference r kat was not used to int erpret this result as normal/abnormal . [facility] UptownPeozeqaIBGXQJVDJQ6092-81-89 15:29:00 Test Item Value Reference Range Interpretation Comments Basophils (test code = 0.7 See_Comment [Aut omated message] The Basophils) system which ge nerated this result tra nsmitted reference range : <=1.0. The reference r kat was not used to int erpret this result as normal/abnormal . [facility] UptownVixsoamJAYUTFMWRV6622-79-59 15:29:00 Test Item Value Reference Range Interpretation Comments Segs-Bands # (test code = Segs-Bands #) 4.4 1.5-8.1 [facility] CenterVyzrauwGQHJLPKUZL7569-01-13 15:29:00 Test Item Value Reference Range Interpretation Comments Eosinophils (test code = 1.2 See_Comment [A utomated message] The Eosinophils) system which ge nerated this result tra nsmitted reference range : <=4.0. The reference r kat was not used to int erpret this result as normal/abnormal . [facility] CenterGklgftgWTRMNNWOOF2939-46-75 15:29:00 Test Item Value Reference Range Interpretation Comments Lymphocytes (test code = Lymphocytes) 37.4 20.0-40.0 [facility] CenterBsbehkgMMMEGINGPM3911-40-84 15:29:00 Test Item Value Reference Range Interpretation Comments Monocytes (test code = Monocytes) 8.9 2.0-12.0 [facility] HealthKzjdyduHQKGOGTZKD0899-73-03 15:29:00 Test Item Value Reference Range Interpretation Comments Segs (test code = Segs) 51.8 45.0-75.0 [facility] HealthDzqufxiEWIGGGIPVZ1927-57-90 15:29:00 Test Item Value Reference Range Interpretation Comments Microcyte (test code = 1+ *ABN*(08/12/15 Microcyte) 9:29 AM) [facility] CenterGpqkefqQYOIVOGQWF5072-34-30 15:29:00 Test Item Value Reference Range Interpretation Comments Basophils # (test code 0.1 See_Comment [Aut omated message] The = Basophils #) system which generated this result tra nsmitted reference range : <=0.2. The reference r kat was not used to int erpret this result as normal/abnormal . [facility]annURINE [id number] 15:29:00 Test Item Value Reference Range Interpretation Comments U Preg (test code = U Negative (08/12/15 9:29 Preg) AM) [facility]annCHEM [id number] 15:29:00 Test Item Value Reference Range Interpretation Comments eGFR (test code = eGFR) 101 [facility]annCHE[facility] [id number] 15:29:00 Test Item Value Reference Range Interpretation Comments Creatinine Lvl (test code = Creatinine 0.81 0.50-1.40 Lvl) [facility] JJHYF5495-25-12 15:29:00 Test Item Value Reference Range Interpretation Comments CO2 (test code = CO2) 27 24-32 [facility]2015-12-14 15:29:00 Test Item Value Reference Range Interpretation Comments Calcium Lvl (test code = Calcium Lvl) 9.7 8.5-10.5 [facility]2015-12-14 15:29:00 Test Item Value Reference Range Interpretation Comments Chloride Lvl (test code = Chloride Lvl) 100 95-109 [facility]2015-12-14 15:29:00 Test Item Value Reference Range Interpretation Comments BUN (test code = BUN) 13 7-22 [facility]2015-12-14 15:29:00 Test Item Value Reference Range Interpretation Comments Glucose Lvl (test code = Glucose Lvl) 89 70-99 [facility]2015-12-14 15:29:00 Test Item Value Reference Range Interpretation Comments Potassium Lvl (test code = Potassium 4.2 3.5-5.1 Lvl) [facility]2015-12-14 15:29:00 Test Item Value Reference Range Interpretation Comments Sodium Lvl (test code = Sodium Lvl) 134 135-145 [facility]2015-12-14 15:29:00 Test Item Value Reference Range Interpretation Comments AGAP (test code = AGAP) 11.2 10.0-20.0 [facility] UptownNpecnajEMUWQHQQJP4744-37-15 15:29:00 Test Item Value Reference Range Interpretation Comments MPV (test code = MPV) 9.2 7.4-10.4 [facility] UptownEfwkmqzPUUKFIUNTS8012-60-35 15:29:00 Test Item Value Reference Range Interpretation Comments Platelet (test code = Platelet) 307 133-450 [facility] UptownBnnfwelFRCNKQFYID0119-07-80 15:29:00 Test Item Value Reference Range Interpretation Comments MCH (test code = MCH) 24.3 pg 27.0-31.0 [facility] UptownXmejovpBVZLLTLSBR6657-41-19 15:29:00 Test Item Value Reference Range Interpretation Comments RDW (test code = RDW) 15.7 11.5-14.5 [facility] UptownOvrkjypMGTTKYXYZZ9377-19-31 15:29:00 Test Item Value Reference Range Interpretation Comments MCHC (test code = MCHC) 31.2 32.0-36.0 [facility] UptownEilsuyvPAYHDNERXH8489-50-83 15:29:00 Test Item Value Reference Range Interpretation Comments MCV (test code = MCV) 78.0 80.0-98.0 [facility] UptownZbudajcZQMNNKOSUB6671-95-01 15:29:00 Test Item Value Reference Range Interpretation Comments WBC (test code = WBC) 8.6 3.7-10.4 [facility] UptownAqqaawzPCGDSXVZKZ4161-31-67 15:29:00 Test Item Value Reference Range Interpretation Comments Hgb (test code = Hgb) 13.2 12.0-16.0 [place] 733975-12-14 15:29:00 Test Item Value Reference Range Interpretation Comments RBC (test code = RBC) 5.41 4.20-5.40 [facility] UptownAojjbraZEFZUUBFHO9672-15-96 15:29:00 Test Item Value Reference Range Interpretation Comments Hct (test code = Hct) 42.1 36.0-48.0 [facility] UptownEsusfyaYQVCHGSTHN3069-45-01 15:29:00 Test Item Value Reference Range Interpretation Comments Lymphocytes # (test code = Lymphocytes 3.2 1.0-5.5 #) [facility] UptownTuucyiiOVNXYZYHFE4574-97-99 15:29:00 Test Item Value Reference Range Interpretation Comments Eosinophils # (test code 0.1 See_Comment [A utomated message] The = Eosinophils #) system whic h generated this result tra nsmitted reference range : <=0.5. The reference r kat was not used to int erpret this result as normal/abnormal . [facility] UptownNwkzcyyHHLHIBSETT9696-44-08 15:29:00 Test Item Value Reference Range Interpretation Comments Monocytes # (test code 0.8 See_Comment [Aut omated message] The = Monocytes #) system which generated this result tra nsmitted reference range : <=0.8. The reference r kat was not used to int erpret this result as normal/abnormal . [facility] UptownBciyzsuETTGDPQHYF1023-01-52 15:29:00 Test Item Value Reference Range Interpretation Comments Basophils (test code = 0.7 See_Comment [Aut omated message] The Basophils) system which ge nerated this result tra nsmitted reference range : <=1.0. The reference r kat was not used to int erpret this result as normal/abnormal . [place] 733975-12-14 15:29:00 Test Item Value Reference Range Interpretation Comments Segs-Bands # (test code = Segs-Bands #) 4.4 1.5-8.1 [facility] CenterPahfzntVTYGXJINFI8118-57-29 15:29:00 Test Item Value Reference Range Interpretation Comments Eosinophils (test code = 1.2 See_Comment [A utomated message] The Eosinophils) system which ge nerated this result tra nsmitted reference range : <=4.0. The reference r kat was not used to int erpret this result as normal/abnormal . [facility] CenterFaxvkgxMNUMQHUDNV6094-73-66 15:29:00 Test Item Value Reference Range Interpretation Comments Lymphocytes (test code = Lymphocytes) 37.4 20.0-40.0 [facility] CenterVtzixltEJTAFAEJOR9288-56-29 15:29:00 Test Item Value Reference Range Interpretation Comments Monocytes (test code = Monocytes) 8.9 2.0-12.0 [facility] HealthFyomoopZXBCBWVZLU2900-92-01 15:29:00 Test Item Value Reference Range Interpretation Comments Segs (test code = Segs) 51.8 45.0-75.0 [facility] HealthTpmenexCEOLDIKYGR7630-02-20 15:29:00 Test Item Value Reference Range Interpretation Comments Microcyte (test code = 1+ *ABN*(08/12/15 Microcyte) 9:29 AM) [facility] HealthYemtblqZNPPPMWVCL8732-37-30 15:29:00 Test Item Value Reference Range Interpretation Comments Basophils # (test code 0.1 See_Comment [Aut omated message] The = Basophils #) system which generated this result tra nsmitted reference range : <=0.2. The reference r kat was not used to int erpret this result as normal/abnormal . [facility] CenterURINE EOPX5684-92-75 15:29:00 Test Item Value Reference Range Interpretation Comments U Preg (test code = U Negative (08/12/15 9:29 Preg) AM) [facility]annCHE[facility] [id number] 15:29:00 Test Item Value Reference Range Interpretation Comments eGFR (test code = eGFR) 101 [facility]annCHEM RNGRZ4481-00-69 15:29:00 Test Item Value Reference Range Interpretation Comments Creatinine Lvl (test code = Creatinine 0.81 0.50-1.40 Lvl) [facility] CMIFV5187-18-02 15:29:00 Test Item Value Reference Range Interpretation Comments CO2 (test code = CO2) 27 24-32 [facility]2015-12-14 15:29:00 Test Item Value Reference Range Interpretation Comments Calcium Lvl (test code = Calcium Lvl) 9.7 8.5-10.5 [facility]2015-12-14 15:29:00 Test Item Value Reference Range Interpretation Comments Chloride Lvl (test code = Chloride Lvl) 100 95-109 [facility]2015-12-14 15:29:00 Test Item Value Reference Range Interpretation Comments BUN (test code = BUN) 13 7-22 [facility]2015-12-14 15:29:00 Test Item Value Reference Range Interpretation Comments Glucose Lvl (test code = Glucose Lvl) 89 70-99 [facility]2015-12-14 15:29:00 Test Item Value Reference Range Interpretation Comments Potassium Lvl (test code = Potassium 4.2 3.5-5.1 Lvl) [facility]2015-12-14 15:29:00 Test Item Value Reference Range Interpretation Comments Sodium Lvl (test code = Sodium Lvl) 134 135-145 [facility]2015-12-14 15:29:00 Test Item Value Reference Range Interpretation Comments AGAP (test code = AGAP) 11.2 10.0-20.0 [facility] UptownJxfugwuNDZJEKNGBA0752-50-70 15:29:00 Test Item Value Reference Range Interpretation Comments MPV (test code = MPV) 9.2 7.4-10.4 [facility] UptownIjzydpyRETTGMMDCR1884-65-00 15:29:00 Test Item Value Reference Range Interpretation Comments Platelet (test code = Platelet) 307 133-450 [facility] UptownFwxwqkmWZAPRVMXFN0450-00-73 15:29:00 Test Item Value Reference Range Interpretation Comments MCH (test code = MCH) 24.3 pg 27.0-31.0 [facility] UptownHxywvfvJYJQTNKTLC7265-51-54 15:29:00 Test Item Value Reference Range Interpretation Comments RDW (test code = RDW) 15.7 11.5-14.5 [facility] UptownDarlhpiBNVISYRNOZ8233-61-98 15:29:00 Test Item Value Reference Range Interpretation Comments MCHC (test code = MCHC) 31.2 32.0-36.0 [facility] UptownMltogpxUGJNSRTBLD9961-50-91 15:29:00 Test Item Value Reference Range Interpretation Comments MCV (test code = MCV) 78.0 80.0-98.0 [facility] UptownIwwvjmnWSJLJAJNFN9712-14-71 15:29:00 Test Item Value Reference Range Interpretation Comments WBC (test code = WBC) 8.6 3.7-10.4 [facility] UptownLvqyseeAVDJXNMSIH4273-60-83 15:29:00 Test Item Value Reference Range Interpretation Comments Hgb (test code = Hgb) 13.2 12.0-16.0 [facility] UptownGvxaxwzVWMBJCZAAJ3856-79-73 15:29:00 Test Item Value Reference Range Interpretation Comments RBC (test code = RBC) 5.41 4.20-5.40 [facility] UptownDqrsofiSTJMILUOXM0052-67-33 15:29:00 Test Item Value Reference Range Interpretation Comments Hct (test code = Hct) 42.1 36.0-48.0 [facility] UptownThwimdeWKWWUNAFPC4716-09-08 15:29:00 Test Item Value Reference Range Interpretation Comments Lymphocytes # (test code = Lymphocytes 3.2 1.0-5.5 #) [facility] UptownZucseibNHJPTEMLWO9670-52-09 15:29:00 Test Item Value Reference Range Interpretation Comments Eosinophils # (test code 0.1 See_Comment [A utomated message] The = Eosinophils #) system whic h generated this result tra nsmitted reference range : <=0.5. The reference r kat was not used to int erpret this result as normal/abnormal . [facility] UptownXomntriAEPSUBMWCK6908-91-26 15:29:00 Test Item Value Reference Range Interpretation Comments Monocytes # (test code 0.8 See_Comment [Aut omated message] The = Monocytes #) system which generated this result tra nsmitted reference range : <=0.8. The reference r kat was not used to int erpret this result as normal/abnormal . [facility] UptownVrswjupIMZHUZBESU8291-34-00 15:29:00 Test Item Value Reference Range Interpretation Comments Basophils (test code = 0.7 See_Comment [Aut omated message] The Basophils) system which ge nerated this result tra nsmitted reference range : <=1.0. The reference r kat was not used to int erpret this result as normal/abnormal . [facility] UptownDixcewdNOFPUSCBKF0442-63-11 15:29:00 Test Item Value Reference Range Interpretation Comments Segs-Bands # (test code = Segs-Bands #) 4.4 1.5-8.1 [facility] CenterWhkeeunWCKPZEQPJF6903-14-03 15:29:00 Test Item Value Reference Range Interpretation Comments Eosinophils (test code = 1.2 See_Comment [A utomated message] The Eosinophils) system which ge nerated this result tra nsmitted reference range : <=4.0. The reference r kat was not used to int erpret this result as normal/abnormal . [facility] CenterJygrndbMKILUKCKBG7117-82-32 15:29:00 Test Item Value Reference Range Interpretation Comments Lymphocytes (test code = Lymphocytes) 37.4 20.0-40.0 [facility] CenterPibzuqgJLBUGKLIQL5920-28-15 15:29:00 Test Item Value Reference Range Interpretation Comments Monocytes (test code = Monocytes) 8.9 2.0-12.0 [facility] HealthHjrtpxkJOLFYEXKSE2036-73-88 15:29:00 Test Item Value Reference Range Interpretation Comments Segs (test code = Segs) 51.8 45.0-75.0 [facility] HealthWwjfdnyAYCZWYDHKA0912-62-73 15:29:00 Test Item Value Reference Range Interpretation Comments Microcyte (test code = 1+ *ABN*(08/12/15 Microcyte) 9:29 AM) [facility] HealthLauxdjiNYXVFGDIJX5461-29-96 15:29:00 Test Item Value Reference Range Interpretation Comments Basophils # (test code 0.1 See_Comment [Aut omated message] The = Basophils #) system which generated this result tra nsmitted reference range : <=0.2. The reference r kat was not used to int erpret this result as normal/abnormal . [facility]ann[facility] [id number] 15:29:00 Test Item Value Reference Range Interpretation Comments U Preg (test code = U Negative (08/12/15 9:29 Preg) AM) [facility]annCHEM [id number] 15:29:00 Test Item Value Reference Range Interpretation Comments eGFR (test code = eGFR) 101 [facility] CenterCHE[facility] TDZVT1495-49-27 15:29:00 Test Item Value Reference Range Interpretation Comments Creatinine Lvl (test code = Creatinine 0.81 0.50-1.40 Lvl) [facility]2015-12-14 15:29:00 Test Item Value Reference Range Interpretation Comments CO2 (test code = CO2) 27 24-32 [facility]2015-12-14 15:29:00 Test Item Value Reference Range Interpretation Comments Calcium Lvl (test code = Calcium Lvl) 9.7 8.5-10.5 [facility]2015-12-14 15:29:00 Test Item Value Reference Range Interpretation Comments Chloride Lvl (test code = Chloride Lvl) 100 95-109 [facility]2015-12-14 15:29:00 Test Item Value Reference Range Interpretation Comments BUN (test code = BUN) 13 7-22 [facility]2015-12-14 15:29:00 Test Item Value Reference Range Interpretation Comments Glucose Lvl (test code = Glucose Lvl) 89 70-99 [facility]2015-12-14 15:29:00 Test Item Value Reference Range Interpretation Comments Potassium Lvl (test code = Potassium 4.2 3.5-5.1 Lvl) [facility]2015-12-14 15:29:00 Test Item Value Reference Range Interpretation Comments Sodium Lvl (test code = Sodium Lvl) 134 135-145 [facility]2015-12-14 15:29:00 Test Item Value Reference Range Interpretation Comments AGAP (test code = AGAP) 11.2 10.0-20.0 [facility]ownNyrqahpPNDXGQPSRH0793-08-50 15:29:00 Test Item Value Reference Range Interpretation Comments MPV (test code = MPV) 9.2 7.4-10.4 [facility]ptownVoyfalyARRXOXGGVN5253-98-34 15:29:00 Test Item Value Reference Range Interpretation Comments Platelet (test code = Platelet) 307 133-450 [facility] UptownHrrimmmRUJUQASYME0167-17-35 15:29:00 Test Item Value Reference Range Interpretation Comments MCH (test code = MCH) 24.3 pg 27.0-31.0 [facility] UptownKptlovaZQHHUZAMZZ9274-55-68 15:29:00 Test Item Value Reference Range Interpretation Comments RDW (test code = RDW) 15.7 11.5-14.5 [facility]ptownQmkrkhbWNDOULUQDT0287-99-69 15:29:00 Test Item Value Reference Range Interpretation Comments MCHC (test code = MCHC) 31.2 32.0-36.0 [facility] UptownFyxehnsSWGCMQLSDG4676-83-74 15:29:00 Test Item Value Reference Range Interpretation Comments MCV (test code = MCV) 78.0 80.0-98.0 [facility] UptownZuhoauyWBIEALYIBD8467-73-07 15:29:00 Test Item Value Reference Range Interpretation Comments WBC (test code = WBC) 8.6 3.7-10.4 [facility] UptownFtnlwawIMTDDVTTHN4776-98-21 15:29:00 Test Item Value Reference Range Interpretation Comments Hgb (test code = Hgb) 13.2 12.0-16.0 [facility] UptownTbygjbuCXNGPUEWYO7011-36-52 15:29:00 Test Item Value Reference Range Interpretation Comments RBC (test code = RBC) 5.41 4.20-5.40 [facility] UptownXuidhmpDRSHNFMDMZ2727-03-75 15:29:00 Test Item Value Reference Range Interpretation Comments Hct (test code = Hct) 42.1 36.0-48.0 [facility]ptownBvfqqvzWIYZPQZRVT8834-60-87 15:29:00 Test Item Value Reference Range Interpretation Comments Lymphocytes # (test code = Lymphocytes 3.2 1.0-5.5 #) [facility] UptownMumzgejWLIUSQYENU9346-18-98 15:29:00 Test Item Value Reference Range Interpretation Comments Eosinophils # (test code 0.1 See_Comment [A utomated message] The = Eosinophils #) system whic h generated this result tra nsmitted reference range : <=0.5. The reference r kat was not used to int erpret this result as normal/abnormal . [facility] UptownUrsnfysFANKYKLJFF1278-33-44 15:29:00 Test Item Value Reference Range Interpretation Comments Monocytes # (test code 0.8 See_Comment [Aut omated message] The = Monocytes #) system which generated this result tra nsmitted reference range : <=0.8. The reference r kat was not used to int erpret this result as normal/abnormal . [facility] UptownIcwpvniECSSCFBLSP6553-42-38 15:29:00 Test Item Value Reference Range Interpretation Comments Basophils (test code = 0.7 See_Comment [Aut omated message] The Basophils) system which ge nerated this result tra nsmitted reference range : <=1.0. The reference r kat was not used to int erpret this result as normal/abnormal . [facility] UptownQeihtfhZCXUPDOPJA2407-35-17 15:29:00 Test Item Value Reference Range Interpretation Comments Segs-Bands # (test code = Segs-Bands #) 4.4 1.5-8.1 [facility]OytohxeYWAJNRJPZM8744-27-69 15:29:00 Test Item Value Reference Range Interpretation Comments Eosinophils (test code = 1.2 See_Comment [A utomated message] The Eosinophils) system which ge nerated this result tra nsmitted reference range : <=4.0. The reference r kat was not used to int erpret this result as normal/abnormal . [facility] CenterLmshcblRJFQTYAQGK3772-45-29 15:29:00 Test Item Value Reference Range Interpretation Comments Lymphocytes (test code = Lymphocytes) 37.4 20.0-40.0 [facility] CenterZhpedhwFICQCYGCLR8302-21-16 15:29:00 Test Item Value Reference Range Interpretation Comments Monocytes (test code = Monocytes) 8.9 2.0-12.0 [facility] HealthPhfsfejEZIKVLHDZJ8937-40-70 15:29:00 Test Item Value Reference Range Interpretation Comments Segs (test code = Segs) 51.8 45.0-75.0 [facility] HealthPwdcdntJAHIMVDUEN9489-97-57 15:29:00 Test Item Value Reference Range Interpretation Comments Microcyte (test code = 1+ *ABN*(08/12/15 Microcyte) 9:29 AM) [facility] CenterNnfnmeuNCMSESYBIB4668-98-02 15:29:00 Test Item Value Reference Range Interpretation Comments Basophils # (test code 0.1 See_Comment [Aut omated message] The = Basophils #) system which generated this result tra nsmitted reference range : <=0.2. The reference r kat was not used to int erpret this result as normal/abnormal . [facility] CenterannURINE [id number] 15:29:00 Test Item Value Reference Range Interpretation Comments U Preg (test code = U Negative (08/12/15 9:29 Preg) AM) [facility] CenterannCHEM AJSCU2822-46-51 15:29:00 Test Item Value Reference Range Interpretation Comments eGFR (test code = eGFR) 101 [facility] CenterannCHEM PYLNY9710-91-57 15:29:00 Test Item Value Reference Range Interpretation Comments Creatinine Lvl (test code = Creatinine 0.81 0.50-1.40 Lvl) [facility]2015-12-14 15:29:00 Test Item Value Reference Range Interpretation Comments CO2 (test code = CO2) [facility]2015-12-14 15:29:00 Test Item Value Reference Range Interpretation Comments Calcium Lvl (test code = Calcium Lvl) 9.7 8.5-10.5 [facility]2015-12-14 15:29:00 Test Item Value Reference Range Interpretation Comments Chloride Lvl (test code = Chloride Lvl) 100 95-109 [facility]2015-12-14 15:29:00 Test Item Value Reference Range Interpretation Comments BUN (test code = BUN) 03-20 [facility]2015-12-14 15:29:00 Test Item Value Reference Range Interpretation Comments Glucose Lvl (test code = Glucose Lvl) 89 70-99 [facility]2015-12-14 15:29:00 Test Item Value Reference Range Interpretation Comments Potassium Lvl (test code = Potassium 4.2 3.5-5.1 Lvl) [facility]2015-12-14 15:29:00 Test Item Value Reference Range Interpretation Comments eGFR (test code = eGFR) 101 [facility]2015-12-14 15:29:00 Test Item Value Reference Range Interpretation Comments Creatinine Lvl (test code = Creatinine 0.81 0.50-1.40 Lvl) [facility]2015-12-14 15:29:00 Test Item Value Reference Range Interpretation Comments CO2 (test code = CO2) [facility]2015-12-14 15:29:00 Test Item Value Reference Range Interpretation Comments Calcium Lvl (test code = Calcium Lvl) 9.7 8.5-10.5 [facility]2015-12-14 15:29:00 Test Item Value Reference Range Interpretation Comments Sodium Lvl (test code = Sodium Lvl) 134 135-145 [facility]2015-12-14 15:29:00 Test Item Value Reference Range Interpretation Comments Chloride Lvl (test code = Chloride Lvl) 100 95-109 [facility]2015-12-14 15:29:00 Test Item Value Reference Range Interpretation Comments BUN (test code = BUN) 03-20 [facility]2015-12-14 15:29:00 Test Item Value Reference Range Interpretation Comments Glucose Lvl (test code = Glucose Lvl) 89 70-99 [facility]2015-12-14 15:29:00 Test Item Value Reference Range Interpretation Comments Potassium Lvl (test code = Potassium 4.2 3.5-5.1 Lvl) [facility]2015-12-14 15:29:00 Test Item Value Reference Range Interpretation Comments Sodium Lvl (test code = Sodium Lvl) 134 135-145 [facility]2015-12-14 15:29:00 Test Item Value Reference Range Interpretation Comments AGAP (test code = AGAP) 11.2 10.0-20.0 [facility] UptownFaatlliWGBKVNWMMF4095-30-69 15:29:00 Test Item Value Reference Range Interpretation Comments MPV (test code = MPV) 9.2 7.4-10.4 [facility]ptownSqcdtpgQZKWAPHBHZ2764-89-05 15:29:00 Test Item Value Reference Range Interpretation Comments Platelet (test code = Platelet) 307 133-450 [facility]ptownJsjozylWLHBIUYUVP6534-68-50 15:29:00 Test Item Value Reference Range Interpretation Comments MCH (test code = MCH) 24.3 pg 27.0-31.0 [facility] UptownHqhjxubWTMHYOJFEV3238-93-14 15:29:00 Test Item Value Reference Range Interpretation Comments RDW (test code = RDW) 15.7 11.5-14.5 [facility]2015-12-14 15:29:00 Test Item Value Reference Range Interpretation Comments AGAP (test code = AGAP) 11.2 10.0-20.0 [facility] UptownAzoaacbLBOJXNHZGA4185-22-95 15:29:00 Test Item Value Reference Range Interpretation Comments MCHC (test code = MCHC) 31.2 32.0-36.0 [facility] UptownJbazvezFYQTAIJFGI6649-27-82 15:29:00 Test Item Value Reference Range Interpretation Comments MCV (test code = MCV) 78.0 80.0-98.0 [facility] UptownEzmneqrUDWKIFGNFF3484-48-19 15:29:00 Test Item Value Reference Range Interpretation Comments WBC (test code = WBC) 8.6 3.7-10.4 [facility]ptownEzypvhgPEHVEYHJFD3585-14-73 15:29:00 Test Item Value Reference Range Interpretation Comments Hgb (test code = Hgb) 13.2 12.0-16.0 [facility] UptownDtxyiowEFQLIAUZGN0461-01-84 15:29:00 Test Item Value Reference Range Interpretation Comments RBC (test code = RBC) 5.41 4.20-5.40 [facility] UptownJgyzmdmALPOYLNEGN1893-44-38 15:29:00 Test Item Value Reference Range Interpretation Comments Hct (test code = Hct) 42.1 36.0-48.0 [facility] UptownMqtjsgiJVEQOUGTXO2808-04-78 15:29:00 Test Item Value Reference Range Interpretation Comments Lymphocytes # (test code = Lymphocytes 3.2 1.0-5.5 #) [facility] UptownMmjeltwAQYYXHJUEC0514-60-82 15:29:00 Test Item Value Reference Range Interpretation Comments Eosinophils # (test code 0.1 See_Comment [A utomated message] The = Eosinophils #) system whic h generated this result tra nsmitted reference range : <=0.5. The reference r kat was not used to int erpret this result as normal/abnormal . [facility] UptownBmbwgibJEZJKRMVXU9305-64-93 15:29:00 Test Item Value Reference Range Interpretation Comments Monocytes # (test code 0.8 See_Comment [Aut omated message] The = Monocytes #) system which generated this result tra nsmitted reference range : <=0.8. The reference r kat was not used to int erpret this result as normal/abnormal . [facility] UptownJhvotkeWQQFGYQYTX3167-92-35 15:29:00 Test Item Value Reference Range Interpretation Comments Basophils (test code = 0.7 See_Comment [Aut omated message] The Basophils) system which ge nerated this result tra nsmitted reference range : <=1.0. The reference r kat was not used to int erpret this result as normal/abnormal . [facility] UptownQtmysocPYBRKFJLAQ6169-87-91 15:29:00 Test Item Value Reference Range Interpretation Comments MPV (test code = MPV) 9.2 7.4-10.4 [facility]ptownQvgjornLVSYHDSMGG2539-67-91 15:29:00 Test Item Value Reference Range Interpretation Comments Segs-Bands # (test code = Segs-Bands #) 4.4 1.5-8.1 [facility] UptownVvcsmypQGGSGGROHV5897-53-89 15:29:00 Test Item Value Reference Range Interpretation Comments Eosinophils (test code = 1.2 See_Comment [A utomated message] The Eosinophils) system which ge nerated this result tra nsmitted reference range : <=4.0. The reference r kat was not used to int erpret this result as normal/abnormal . [facility] HealthErxnlgxMRLFESISSH3464-89-45 15:29:00 Test Item Value Reference Range Interpretation Comments Lymphocytes (test code = Lymphocytes) 37.4 20.0-40.0 [facility] HealthGwsinjbUSNIWGBLEM1233-27-33 15:29:00 Test Item Value Reference Range Interpretation Comments Monocytes (test code = Monocytes) 8.9 2.0-12.0 [facility] HealthMmgbhbiAZTSRTWWEV9281-38-81 15:29:00 Test Item Value Reference Range Interpretation Comments Segs (test code = Segs) 51.8 45.0-75.0 [facility] HealthVadnuisZLCSQJOBWW8754-19-78 15:29:00 Test Item Value Reference Range Interpretation Comments Microcyte (test code = 1+ *ABN*(08/12/15 Microcyte) 9:29 AM) [facility] HealthZadkilrRTTWAMLSWD0697-57-49 15:29:00 Test Item Value Reference Range Interpretation Comments Basophils # (test code 0.1 See_Comment [Aut omated message] The = Basophils #) system which generated this result tra nsmitted reference range : <=0.2. The reference r kat was not used to int erpret this result as normal/abnormal . [facility] [id number] 15:29:00 Test Item Value Reference Range Interpretation Comments U Preg (test code = U Negative (08/12/15 9:29 Preg) AM) [facility] HealthElmhoerNVQRYTRFFT4036-64-96 15:29:00 Test Item Value Reference Range Interpretation Comments Platelet (test code = Platelet) 307 133-450 [facility] CenterDdbqkvcSBGSBBYVWM3658-36-32 15:29:00 Test Item Value Reference Range Interpretation Comments MCH (test code = MCH) 24.3 pg 27.0-31.0 [facility] HealthSrsjhlaDBYYLWFJXJ0852-48-71 15:29:00 Test Item Value Reference Range Interpretation Comments RDW (test code = RDW) 15.7 11.5-14.5 [facility] CenterJsbmxyfTIIGMSVJRX2550-29-99 15:29:00 Test Item Value Reference Range Interpretation Comments MCHC (test code = MCHC) 31.2 32.0-36.0 [facility]ptownSjbdqzlCMUWBNZZEO4782-09-55 15:29:00 Test Item Value Reference Range Interpretation Comments MCV (test code = MCV) 78.0 80.0-98.0 [facility] UptownWpydlfhEJKNPPRRFO7567-51-39 15:29:00 Test Item Value Reference Range Interpretation Comments WBC (test code = WBC) 8.6 3.7-10.4 [facility] UptownYkuiwgmMZKJIZHEBE5420-81-92 15:29:00 Test Item Value Reference Range Interpretation Comments Hgb (test code = Hgb) 13.2 12.0-16.0 [facility] UptownCmglgdcNIUTCDPMFI5869-25-66 15:29:00 Test Item Value Reference Range Interpretation Comments RBC (test code = RBC) 5.41 4.20-5.40 [facility] UptownXceqrzjBKLXQZCMGP9997-03-89 15:29:00 Test Item Value Reference Range Interpretation Comments Hct (test code = Hct) 42.1 36.0-48.0 [facility] UptownLfzypolHMVGKVEMGY7502-67-73 15:29:00 Test Item Value Reference Range Interpretation Comments Lymphocytes # (test code = Lymphocytes 3.2 1.0-5.5 #) [facility] UptownFvhowrfPCMAFXMPHC1976-05-63 15:29:00 Test Item Value Reference Range Interpretation Comments Eosinophils # (test code 0.1 See_Comment [A utomated message] The = Eosinophils #) system whic h generated this result tra nsmitted reference range : <=0.5. The reference r kat was not used to int erpret this result as normal/abnormal . [facility] UptownSodyapkXXNUDBHJOR3227-37-63 15:29:00 Test Item Value Reference Range Interpretation Comments Monocytes # (test code 0.8 See_Comment [Aut omated message] The = Monocytes #) system which generated this result tra nsmitted reference range : <=0.8. The reference r kat was not used to int erpret this result as normal/abnormal . [facility] UptownVdwbjnmIYJPTJTXKW4123-48-11 15:29:00 Test Item Value Reference Range Interpretation Comments Basophils (test code = 0.7 See_Comment [Aut omated message] The Basophils) system which ge nerated this result tra nsmitted reference range : <=1.0. The reference r kta was not used to int erpret this result as normal/abnormal . [facility] CenterAkkyykxPVIEKYNCXG7733-31-13 15:29:00 Test Item Value Reference Range Interpretation Comments Segs-Bands # (test code = Segs-Bands #) 4.4 1.5-8.1 [facility] CenterOxjuxjaTTEYXTOMGY0497-62-78 15:29:00 Test Item Value Reference Range Interpretation Comments Eosinophils (test code = 1.2 See_Comment [A utomated message] The Eosinophils) system which ge nerated this result tra nsmitted reference range : <=4.0. The reference r kat was not used to int erpret this result as normal/abnormal . [facility] CenterDzgvuxrATTYGVBCKN5728-91-47 15:29:00 Test Item Value Reference Range Interpretation Comments Lymphocytes (test code = Lymphocytes) 37.4 20.0-40.0 [facility] CenterWaynpwqZKGTURGAZS8910-31-74 15:29:00 Test Item Value Reference Range Interpretation Comments Monocytes (test code = Monocytes) 8.9 2.0-12.0 [facility] CenterDnatzpxPJDSEJGKWR3098-27-48 15:29:00 Test Item Value Reference Range Interpretation Comments Segs (test code = Segs) 51.8 45.0-75.0 [facility] CenterDqdufbpQDDFTRYSBB0477-97-47 15:29:00 Test Item Value Reference Range Interpretation Comments Microcyte (test code = 1+ *ABN*(08/12/15 Microcyte) 9:29 AM) [facility] CenterVqoljzuTAYZMPZGSH2110-41-10 15:29:00 Test Item Value Reference Range Interpretation Comments Basophils # (test code 0.1 See_Comment [Aut omated message] The = Basophils #) system which generated this result tra nsmitted reference range : <=0.2. The reference r kat was not used to int erpret this result as normal/abnormal . [facility]annURINE KTGX8270-43-71 15:29:00 Test Item Value Reference Range Interpretation Comments U Preg (test code = U Negative (08/12/15 9:29 Preg) AM) [facility] CenterannCHEM KFQBD5689-80-09 15:29:00 Test Item Value Reference Range Interpretation Comments eGFR (test code = eGFR) 101 [facility] CenterCHEM XEXOS1676-80-33 15:29:00 Test Item Value Reference Range Interpretation Comments Creatinine Lvl (test code = Creatinine 0.81 0.50-1.40 Lvl) [facility]2015-12-14 15:29:00 Test Item Value Reference Range Interpretation Comments CO2 (test code = CO2) 27 24-32 [facility]2015-12-14 15:29:00 Test Item Value Reference Range Interpretation Comments Calcium Lvl (test code = Calcium Lvl) 9.7 8.5-10.5 [facility]2015-12-14 15:29:00 Test Item Value Reference Range Interpretation Comments Chloride Lvl (test code = Chloride Lvl) 100 95-109 [facility]2015-12-14 15:29:00 Test Item Value Reference Range Interpretation Comments BUN (test code = BUN) 13 7-22 [facility]2015-12-14 15:29:00 Test Item Value Reference Range Interpretation Comments Glucose Lvl (test code = Glucose Lvl) 89 70-99 [facility]2015-12-14 15:29:00 Test Item Value Reference Range Interpretation Comments Potassium Lvl (test code = Potassium 4.2 3.5-5.1 Lvl) [facility]2015-12-14 15:29:00 Test Item Value Reference Range Interpretation Comments Sodium Lvl (test code = Sodium Lvl) 134 135-145 [facility]2015-12-14 15:29:00 Test Item Value Reference Range Interpretation Comments AGAP (test code = AGAP) 11.2 10.0-20.0 [facility]ptownTwrjuidUOUNXLDQKW6815-94-38 15:29:00 Test Item Value Reference Range Interpretation Comments MPV (test code = MPV) 9.2 7.4-10.4 [facility] UptownRrjtqhpSYMWECDXBX8741-41-86 15:29:00 Test Item Value Reference Range Interpretation Comments Platelet (test code = Platelet) 307 133-450 [facility] UptownErxcfimBQAYCBWKTZ9887-62-05 15:29:00 Test Item Value Reference Range Interpretation Comments MCH (test code = MCH) 24.3 pg 27.0-31.0 [facility] UptownMunpwkhZGXVAIENXC9146-49-22 15:29:00 Test Item Value Reference Range Interpretation Comments RDW (test code = RDW) 15.7 11.5-14.5 [facility] UptownGarpccqCMLBFADVMX6320-74-42 15:29:00 Test Item Value Reference Range Interpretation Comments MCHC (test code = MCHC) 31.2 32.0-36.0 [facility] UptownMxiwfdrKSPCLVHWLT7635-70-31 15:29:00 Test Item Value Reference Range Interpretation Comments MCV (test code = MCV) 78.0 80.0-98.0 [facility] UptownUpeppojIYYERURRPI3612-63-15 15:29:00 Test Item Value Reference Range Interpretation Comments WBC (test code = WBC) 8.6 3.7-10.4 [facility] UptownUpxtihfMEJXTDXDGM4333-30-16 15:29:00 Test Item Value Reference Range Interpretation Comments Hgb (test code = Hgb) 13.2 12.0-16.0 [facility] UptownJcohvvuAOJVQVHCYG2015-56-82 15:29:00 Test Item Value Reference Range Interpretation Comments RBC (test code = RBC) 5.41 4.20-5.40 [facility] UptownXjxkhzwWAAJSXBALR1667-74-77 15:29:00 Test Item Value Reference Range Interpretation Comments Hct (test code = Hct) 42.1 36.0-48.0 [facility] UptownSownnwnDYWUTABLMR5869-86-34 15:29:00 Test Item Value Reference Range Interpretation Comments Lymphocytes # (test code = Lymphocytes 3.2 1.0-5.5 #) [facility] UptownOhnebotKRSDWTHYBN3128-92-09 15:29:00 Test Item Value Reference Range Interpretation Comments Eosinophils # (test code 0.1 See_Comment [A utomated message] The = Eosinophils #) system ic h generated this result tra nsmitted reference range : <=0.5. The reference r kat was not used to int erpret this result as normal/abnormal . [facility] UptownMtthlggKNCHMFIIIA7091-86-12 15:29:00 Test Item Value Reference Range Interpretation Comments Monocytes # (test code 0.8 See_Comment [Aut omated message] The = Monocytes #) system which generated this result tra nsmitted reference range : <=0.8. The reference r kat was not used to int erpret this result as normal/abnormal . [facility] UptownEajrurpLQGGZFJTEO0312-54-38 15:29:00 Test Item Value Reference Range Interpretation Comments Basophils (test code = 0.7 See_Comment [Aut omated message] The Basophils) system which ge nerated this result tra nsmitted reference range : <=1.0. The reference r kat was not used to int erpret this result as normal/abnormal . [facility] CenterPdoxiisALRVUKYAGX3571-57-38 15:29:00 Test Item Value Reference Range Interpretation Comments Segs-Bands # (test code = Segs-Bands #) 4.4 1.5-8.1 [facility] CenterAfsbmtdQRLROWIQEO2271-93-51 15:29:00 Test Item Value Reference Range Interpretation Comments Eosinophils (test code = 1.2 See_Comment [A utomated message] The Eosinophils) system which ge nerated this result tra nsmitted reference range : <=4.0. The reference r kat was not used to int erpret this result as normal/abnormal . [facility] CenterQbimoqnSBOSGHPTYU3298-22-39 15:29:00 Test Item Value Reference Range Interpretation Comments Lymphocytes (test code = Lymphocytes) 37.4 20.0-40.0 [facility] CenterOwcykolHVXWPXGOHO0308-96-73 15:29:00 Test Item Value Reference Range Interpretation Comments Monocytes (test code = Monocytes) 8.9 2.0-12.0 [facility] HealthAmzvqtbEHDJKPITEF4925-34-59 15:29:00 Test Item Value Reference Range Interpretation Comments Segs (test code = Segs) 51.8 45.0-75.0 [facility] CenterHdigfifGECVEUKQDC1363-77-76 15:29:00 Test Item Value Reference Range Interpretation Comments Microcyte (test code = 1+ *ABN*(08/12/15 Microcyte) 9:29 AM) [facility]RfgtpfrVRCKBARPWO7020-22-47 15:29:00 Test Item Value Reference Range Interpretation Comments Basophils # (test code 0.1 See_Comment [Aut omated message] The = Basophils #) system which generated this result tra nsmitted reference range : <=0.2. The reference r kat was not used to int erpret this result as normal/abnormal . [facility] [id number] 15:29:00 Test Item Value Reference Range Interpretation Comments U Preg (test code = U Negative (08/12/15 9:29 Preg) AM) [facility]annCHE[facility] [id number] 15:29:00 Test Item Value Reference Range Interpretation Comments eGFR (test code = eGFR) 101 [facility]annCHE[facility] [id number] 15:29:00 Test Item Value Reference Range Interpretation Comments Creatinine Lvl (test code = Creatinine 0.81 0.50-1.40 Lvl) [facility]2015-12-14 15:29:00 Test Item Value Reference Range Interpretation Comments CO2 (test code = CO2) 27 24-32 [facility]2015-12-14 15:29:00 Test Item Value Reference Range Interpretation Comments Calcium Lvl (test code = Calcium Lvl) 9.7 8.5-10.5 [facility]2015-12-14 15:29:00 Test Item Value Reference Range Interpretation Comments Chloride Lvl (test code = Chloride Lvl) 100 95-109 [facility]2015-12-14 15:29:00 Test Item Value Reference Range Interpretation Comments BUN (test code = BUN) 13 7-22 [facility]2015-12-14 15:29:00 Test Item Value Reference Range Interpretation Comments Glucose Lvl (test code = Glucose Lvl) 89 70-99 [facility]2015-12-14 15:29:00 Test Item Value Reference Range Interpretation Comments Potassium Lvl (test code = Potassium 4.2 3.5-5.1 Lvl) [facility]2015-12-14 15:29:00 Test Item Value Reference Range Interpretation Comments Sodium Lvl (test code = Sodium Lvl) 134 135-145 [facility]2015-12-14 15:29:00 Test Item Value Reference Range Interpretation Comments AGAP (test code = AGAP) 11.2 10.0-20.0 [facility]ownJcbdyxtJTKUAORHCC7437-71-23 15:29:00 Test Item Value Reference Range Interpretation Comments MPV (test code = MPV) 9.2 7.4-10.4 [facility] UptownTieqhyoBYNHPIPOJL4280-63-00 15:29:00 Test Item Value Reference Range Interpretation Comments Platelet (test code = Platelet) 307 133-450 [facility] UptownUxjqstaYBYLJIWTLY1521-33-92 15:29:00 Test Item Value Reference Range Interpretation Comments MCH (test code = MCH) 24.3 pg 27.0-31.0 [facility] UptownAfmkhclRSEPCWTKUR2989-35-31 15:29:00 Test Item Value Reference Range Interpretation Comments RDW (test code = RDW) 15.7 11.5-14.5 [facility] UptownIlbzetfGIKHVUOELP1356-02-51 15:29:00 Test Item Value Reference Range Interpretation Comments MCHC (test code = MCHC) 31.2 32.0-36.0 [facility] UptownFoztnrnBOQECSJHUN8363-00-31 15:29:00 Test Item Value Reference Range Interpretation Comments MCV (test code = MCV) 78.0 80.0-98.0 [facility]ptownJsnsnmtBWQQDEYDEE8509-69-00 15:29:00 Test Item Value Reference Range Interpretation Comments WBC (test code = WBC) 8.6 3.7-10.4 [facility] UptownSsvuknxBUTVQDBDBJ6945-92-34 15:29:00 Test Item Value Reference Range Interpretation Comments Hgb (test code = Hgb) 13.2 12.0-16.0 [facility] UptownKawxgiyFZLRNMVEXO9565-18-25 15:29:00 Test Item Value Reference Range Interpretation Comments RBC (test code = RBC) 5.41 4.20-5.40 [facility] UptownYqjprmyVXBUTJVTDA1783-22-08 15:29:00 Test Item Value Reference Range Interpretation Comments Hct (test code = Hct) 42.1 36.0-48.0 [facility] UptownUgoqveiTYAFAESFQA8838-74-29 15:29:00 Test Item Value Reference Range Interpretation Comments Lymphocytes # (test code = Lymphocytes 3.2 1.0-5.5 #) [facility] UptownFqyglznDFHYPOKXZV7251-12-87 15:29:00 Test Item Value Reference Range Interpretation Comments Eosinophils # (test code 0.1 See_Comment [A utomated message] The = Eosinophils #) system whic h generated this result tra nsmitted reference range : <=0.5. The reference r kat was not used to int erpret this result as normal/abnormal . [facility] UptownJcahaevZPPNEFHDCJ0229-19-73 15:29:00 Test Item Value Reference Range Interpretation Comments Monocytes # (test code 0.8 See_Comment [Aut omated message] The = Monocytes #) system which generated this result tra nsmitted reference range : <=0.8. The reference r kat was not used to int erpret this result as normal/abnormal . [facility] UptownHriidkvKHYDFUJUTH2631-46-13 15:29:00 Test Item Value Reference Range Interpretation Comments Basophils (test code = 0.7 See_Comment [Aut omated message] The Basophils) system which ge nerated this result tra nsmitted reference range : <=1.0. The reference r kat was not used to int erpret this result as normal/abnormal . [facility] HealthQrntmccUFZOKZWUEJ5973-51-60 15:29:00 Test Item Value Reference Range Interpretation Comments Segs-Bands # (test code = Segs-Bands #) 4.4 1.5-8.1 [facility] CenterJclbxvuYUOJRGAVGO9440-74-67 15:29:00 Test Item Value Reference Range Interpretation Comments Eosinophils (test code = 1.2 See_Comment [A utomated message] The Eosinophils) system which ge nerated this result tra nsmitted reference range : <=4.0. The reference r kat was not used to int erpret this result as normal/abnormal . [facility] CenterLseuppfABWBUGHCYQ2685-20-24 15:29:00 Test Item Value Reference Range Interpretation Comments Lymphocytes (test code = Lymphocytes) 37.4 20.0-40.0 [facility] CenterGthfgkpEKTNGONWQH0674-35-11 15:29:00 Test Item Value Reference Range Interpretation Comments Monocytes (test code = Monocytes) 8.9 2.0-12.0 [facility] HealthTthwhvkKGEHVWHQBY4948-04-98 15:29:00 Test Item Value Reference Range Interpretation Comments Segs (test code = Segs) 51.8 45.0-75.0 [facility] HealthOboxvpxTQOFPKLSGL8361-49-93 15:29:00 Test Item Value Reference Range Interpretation Comments Microcyte (test code = 1+ *ABN*(08/12/15 Microcyte) 9:29 AM) [facility] CenterYzykmsgMSIQVASKIM6572-32-43 15:29:00 Test Item Value Reference Range Interpretation Comments Basophils # (test code 0.1 See_Comment [Aut omated message] The = Basophils #) system which generated this result tra nsmitted reference range : <=0.2. The reference r kat was not used to int erpret this result as normal/abnormal . [facility]ann[facility] [id number] 15:29:00 Test Item Value Reference Range Interpretation Comments U Preg (test code = U Negative (08/12/15 9:29 Preg) AM) [facility]annCHEM [id number] 15:29:00 Test Item Value Reference Range Interpretation Comments eGFR (test code = eGFR) 101 [facility] CenterCHEM KCWFQ1779-10-41 15:29:00 Test Item Value Reference Range Interpretation Comments Creatinine Lvl (test code = Creatinine 0.81 0.50-1.40 Lvl) [facility]2015-12-14 15:29:00 Test Item Value Reference Range Interpretation Comments CO2 (test code = CO2) 27 24-32 [facility]2015-12-14 15:29:00 Test Item Value Reference Range Interpretation Comments Calcium Lvl (test code = Calcium Lvl) 9.7 8.5-10.5 [facility]2015-12-14 15:29:00 Test Item Value Reference Range Interpretation Comments Chloride Lvl (test code = Chloride Lvl) 100 95-109 [facility]2015-12-14 15:29:00 Test Item Value Reference Range Interpretation Comments BUN (test code = BUN) 13 7-22 [facility]2015-12-14 15:29:00 Test Item Value Reference Range Interpretation Comments Glucose Lvl (test code = Glucose Lvl) 89 70-99 [facility]2015-12-14 15:29:00 Test Item Value Reference Range Interpretation Comments Potassium Lvl (test code = Potassium 4.2 3.5-5.1 Lvl) [facility]2015-12-14 15:29:00 Test Item Value Reference Range Interpretation Comments Sodium Lvl (test code = Sodium Lvl) 134 135-145 [facility]2015-12-14 15:29:00 Test Item Value Reference Range Interpretation Comments AGAP (test code = AGAP) 11.2 10.0-20.0 [facility] UptownRaausbrBRPXGAMYBM4331-30-48 15:29:00 Test Item Value Reference Range Interpretation Comments MPV (test code = MPV) 9.2 7.4-10.4 [facility] UptownJxsjrmyOFBOSBFEME6429-79-28 15:29:00 Test Item Value Reference Range Interpretation Comments Platelet (test code = Platelet) 307 133-450 [facility] UptownJonplpoCDOFLWEPSF2685-33-92 15:29:00 Test Item Value Reference Range Interpretation Comments MCH (test code = MCH) 24.3 pg 27.0-31.0 [facility] UptownFyirhkhCSIVHDDIXG0582-77-47 15:29:00 Test Item Value Reference Range Interpretation Comments RDW (test code = RDW) 15.7 11.5-14.5 [facility] UptownNyqixklPRSNMAEZVP9661-84-53 15:29:00 Test Item Value Reference Range Interpretation Comments MCHC (test code = MCHC) 31.2 32.0-36.0 [facility] UptownYqfgqzbRVCVMAARLN7083-75-14 15:29:00 Test Item Value Reference Range Interpretation Comments MCV (test code = MCV) 78.0 80.0-98.0 [facility] UptownHhlitiuKUXBZDHKLC6838-87-12 15:29:00 Test Item Value Reference Range Interpretation Comments WBC (test code = WBC) 8.6 3.7-10.4 [facility] UptownBwxadxyQDIZPXYVKG6270-86-75 15:29:00 Test Item Value Reference Range Interpretation Comments Hgb (test code = Hgb) 13.2 12.0-16.0 [facility] UptownUzwnabqGOZXFUPPTQ2355-58-85 15:29:00 Test Item Value Reference Range Interpretation Comments RBC (test code = RBC) 5.41 4.20-5.40 [facility] UptownUaldlvjYVWTKUEDCG3091-27-17 15:29:00 Test Item Value Reference Range Interpretation Comments Hct (test code = Hct) 42.1 36.0-48.0 [facility] UptownMflxvdxTRYHHVWEOU5093-57-04 15:29:00 Test Item Value Reference Range Interpretation Comments Lymphocytes # (test code = Lymphocytes 3.2 1.0-5.5 #) [facility] UptownZjcvegyLPSJQTVCMR2553-48-32 15:29:00 Test Item Value Reference Range Interpretation Comments Eosinophils # (test code 0.1 See_Comment [A utomated message] The = Eosinophils #) system whic h generated this result tra nsmitted reference range : <=0.5. The reference r kat was not used to int erpret this result as normal/abnormal . [facility] UptownOziqudlOWIAMTRAOS3553-01-29 15:29:00 Test Item Value Reference Range Interpretation Comments Monocytes # (test code 0.8 See_Comment [Aut omated message] The = Monocytes #) system which generated this result tra nsmitted reference range : <=0.8. The reference r kat was not used to int erpret this result as normal/abnormal . [facility] UptownIpuugbgRTZDSIAPYB8424-49-27 15:29:00 Test Item Value Reference Range Interpretation Comments Basophils (test code = 0.7 See_Comment [Aut omated message] The Basophils) system which ge nerated this result tra nsmitted reference range : <=1.0. The reference r kat was not used to int erpret this result as normal/abnormal . [facility] HealthIdeycqxMKNCGOLHQX9819-36-62 15:29:00 Test Item Value Reference Range Interpretation Comments Segs-Bands # (test code = Segs-Bands #) 4.4 1.5-8.1 [facility] CenterLrgzmupJKWJLIRSRN0409-87-00 15:29:00 Test Item Value Reference Range Interpretation Comments Eosinophils (test code = 1.2 See_Comment [A utomated message] The Eosinophils) system which ge nerated this result tra nsmitted reference range : <=4.0. The reference r kat was not used to int erpret this result as normal/abnormal . [facility] CenterSfodcnoCHBEGRBKIX9849-00-87 15:29:00 Test Item Value Reference Range Interpretation Comments Lymphocytes (test code = Lymphocytes) 37.4 20.0-40.0 [facility] CenterRgusiibCFIHTVNETF5416-41-23 15:29:00 Test Item Value Reference Range Interpretation Comments Monocytes (test code = Monocytes) 8.9 2.0-12.0 [facility] HealthWcinqkiWPOXTFJBIY1591-65-63 15:29:00 Test Item Value Reference Range Interpretation Comments Segs (test code = Segs) 51.8 45.0-75.0 [facility] HealthQldgjdmOJAIWSQEZI8080-82-69 15:29:00 Test Item Value Reference Range Interpretation Comments Microcyte (test code = 1+ *ABN*(08/12/15 Microcyte) 9:29 AM) [facility] CenterFwecudvHRSYBLAUSH8810-04-79 15:29:00 Test Item Value Reference Range Interpretation Comments Basophils # (test code 0.1 See_Comment [Aut omated message] The = Basophils #) system which generated this result tra nsmitted reference range : <=0.2. The reference r kat was not used to int erpret this result as normal/abnormal . [facility] CenterUR[facility] [id number] 15:29:00 Test Item Value Reference Range Interpretation Comments U Preg (test code = U Negative (08/12/15 9:29 Preg) AM) [facility] CenterCHEM [id number] 15:29:00 Test Item Value Reference Range Interpretation Comments eGFR (test code = eGFR) 101 [facility] CenterCHEM GCBLB1032-55-04 15:29:00 Test Item Value Reference Range Interpretation Comments Creatinine Lvl (test code = Creatinine 0.81 0.50-1.40 Lvl) [facility]2015-12-14 15:29:00 Test Item Value Reference Range Interpretation Comments CO2 (test code = CO2) 27 24-32 [facility]2015-12-14 15:29:00 Test Item Value Reference Range Interpretation Comments Calcium Lvl (test code = Calcium Lvl) 9.7 8.5-10.5 [facility]2015-12-14 15:29:00 Test Item Value Reference Range Interpretation Comments Chloride Lvl (test code = Chloride Lvl) 100 95-109 [facility]2015-12-14 15:29:00 Test Item Value Reference Range Interpretation Comments BUN (test code = BUN) 13 7-22 [facility]2015-12-14 15:29:00 Test Item Value Reference Range Interpretation Comments Glucose Lvl (test code = Glucose Lvl) 89 70-99 [facility]2015-12-14 15:29:00 Test Item Value Reference Range Interpretation Comments Potassium Lvl (test code = Potassium 4.2 3.5-5.1 Lvl) [facility]2015-12-14 15:29:00 Test Item Value Reference Range Interpretation Comments Sodium Lvl (test code = Sodium Lvl) 134 135-145 [facility]2015-12-14 15:29:00 Test Item Value Reference Range Interpretation Comments AGAP (test code = AGAP) 11.2 10.0-20.0 [facility] UptownUsxpsmsHCGMVIDJTK3086-93-13 15:29:00 Test Item Value Reference Range Interpretation Comments MPV (test code = MPV) 9.2 7.4-10.4 [facility] UptownXhrzjwzGPGNFJRUOS8602-76-81 15:29:00 Test Item Value Reference Range Interpretation Comments Platelet (test code = Platelet) 307 133-450 [facility] UptownIiljzprGQBQCJTDTJ4637-34-52 15:29:00 Test Item Value Reference Range Interpretation Comments MCH (test code = MCH) 24.3 pg 27.0-31.0 [facility] UptownKsydfeqAWKORXUQDT1543-93-70 15:29:00 Test Item Value Reference Range Interpretation Comments RDW (test code = RDW) 15.7 11.5-14.5 [facility] UptownJpezpxjXJPPMLWVWH3161-96-73 15:29:00 Test Item Value Reference Range Interpretation Comments MCHC (test code = MCHC) 31.2 32.0-36.0 [facility] UptownOcegripLDTAKVWPKM1263-14-18 15:29:00 Test Item Value Reference Range Interpretation Comments MCV (test code = MCV) 78.0 80.0-98.0 [facility] UptownLpybuihOEJHXMQGVB2987-44-23 15:29:00 Test Item Value Reference Range Interpretation Comments WBC (test code = WBC) 8.6 3.7-10.4 [facility] UptownEeafpzuDRNLKWADEU1070-83-87 15:29:00 Test Item Value Reference Range Interpretation Comments Hgb (test code = Hgb) 13.2 12.0-16.0 [facility] UptownChnykycIFMVEYINPU4639-00-57 15:29:00 Test Item Value Reference Range Interpretation Comments RBC (test code = RBC) 5.41 4.20-5.40 [facility] UptownBdcnmfyHBRBFOHZXT4955-30-45 15:29:00 Test Item Value Reference Range Interpretation Comments Hct (test code = Hct) 42.1 36.0-48.0 [facility] UptownBnmbbkaREMZVVGQBH4744-28-15 15:29:00 Test Item Value Reference Range Interpretation Comments Lymphocytes # (test code = Lymphocytes 3.2 1.0-5.5 #) [facility] UptownJwtybgmKHWDZCHOUC4326-80-33 15:29:00 Test Item Value Reference Range Interpretation Comments Eosinophils # (test code 0.1 See_Comment [A utomated message] The = Eosinophils #) system whic h generated this result tra nsmitted reference range : <=0.5. The reference r kat was not used to int erpret this result as normal/abnormal . [facility] UptownYaqczafXKGYSKMREZ6168-60-22 15:29:00 Test Item Value Reference Range Interpretation Comments Monocytes # (test code 0.8 See_Comment [Aut omated message] The = Monocytes #) system which generated this result tra nsmitted reference range : <=0.8. The reference r kat was not used to int erpret this result as normal/abnormal . [facility] UptownLxiclxfSWQGQCLIPY3603-36-89 15:29:00 Test Item Value Reference Range Interpretation Comments Basophils (test code = 0.7 See_Comment [Aut omated message] The Basophils) system which ge nerated this result tra nsmitted reference range : <=1.0. The reference r kat was not used to int erpret this result as normal/abnormal . [facility] HealthHqskfdlOEZPYIMMNF9974-55-96 15:29:00 Test Item Value Reference Range Interpretation Comments Segs-Bands # (test code = Segs-Bands #) 4.4 1.5-8.1 [facility] HealthZvoznsvTZCMXJCPZJ0385-00-66 15:29:00 Test Item Value Reference Range Interpretation Comments Eosinophils (test code = 1.2 See_Comment [A utomated message] The Eosinophils) system which ge nerated this result tra nsmitted reference range : <=4.0. The reference r kat was not used to int erpret this result as normal/abnormal . [facility] HealthZychewwXGIZSOETCB2323-16-27 15:29:00 Test Item Value Reference Range Interpretation Comments Lymphocytes (test code = Lymphocytes) 37.4 20.0-40.0 [facility] HealthJgcfuwrGVMMYRWYKS9164-76-34 15:29:00 Test Item Value Reference Range Interpretation Comments Monocytes (test code = Monocytes) 8.9 2.0-12.0 [facility] HealthFpvsdhrHKLEBTMVPA0410-84-44 15:29:00 Test Item Value Reference Range Interpretation Comments Segs (test code = Segs) 51.8 45.0-75.0 [facility] HealthLrufgbvLNTWGSROTV3119-46-00 15:29:00 Test Item Value Reference Range Interpretation Comments Microcyte (test code = 1+ *ABN*(08/12/15 Microcyte) 9:29 AM) [facility] CenterDtgbeczHQCZYOVEHV4394-65-22 15:29:00 Test Item Value Reference Range Interpretation Comments Basophils # (test code 0.1 See_Comment [Aut omated message] The = Basophils #) system which generated this result tra nsmitted reference range : <=0.2. The reference r kat was not used to int erpret this result as normal/abnormal . [facility]annUR[facility] SAEX0217-74-33 15:29:00 Test Item Value Reference Range Interpretation Comments U Preg (test code = U Negative (08/12/15 9:29 Preg) AM) [facility]annCHEM [id number] 15:29:00 Test Item Value Reference Range Interpretation Comments eGFR (test code = eGFR) 101 [facility]CHE[facility] BHJRU9233-35-89 15:29:00 Test Item Value Reference Range Interpretation Comments Creatinine Lvl (test code = Creatinine 0.81 0.50-1.40 Lvl) [facility]2015-12-14 15:29:00 Test Item Value Reference Range Interpretation Comments CO2 (test code = CO2) 27 24-32 [facility]2015-12-14 15:29:00 Test Item Value Reference Range Interpretation Comments Calcium Lvl (test code = Calcium Lvl) 9.7 8.5-10.5 [facility]2015-12-14 15:29:00 Test Item Value Reference Range Interpretation Comments Chloride Lvl (test code = Chloride Lvl) 100 95-109 [facility]2015-12-14 15:29:00 Test Item Value Reference Range Interpretation Comments BUN (test code = BUN) 13 7-22 [facility]2015-12-14 15:29:00 Test Item Value Reference Range Interpretation Comments Glucose Lvl (test code = Glucose Lvl) 89 70-99 [facility]2015-12-14 15:29:00 Test Item Value Reference Range Interpretation Comments Potassium Lvl (test code = Potassium 4.2 3.5-5.1 Lvl) [facility]2015-12-14 15:29:00 Test Item Value Reference Range Interpretation Comments Sodium Lvl (test code = Sodium Lvl) 134 135-145 [facility]2015-12-14 15:29:00 Test Item Value Reference Range Interpretation Comments AGAP (test code = AGAP) 11.2 10.0-20.0 [facility] UptownFvozyepYSTWVBROON3847-85-92 15:29:00 Test Item Value Reference Range Interpretation Comments MPV (test code = MPV) 9.2 7.4-10.4 [facility] UptownOhhcsfdCCPDCCTAEW6120-49-23 15:29:00 Test Item Value Reference Range Interpretation Comments Platelet (test code = Platelet) 307 133-450 [facility] UptownYxlzdniUQMCNAYWBV0284-56-50 15:29:00 Test Item Value Reference Range Interpretation Comments MCH (test code = MCH) 24.3 pg 27.0-31.0 [facility] UptownQlnpdxbWZHZRCSNDY7745-36-68 15:29:00 Test Item Value Reference Range Interpretation Comments RDW (test code = RDW) 15.7 11.5-14.5 [facility] UptownReiwrtuRBKJJVLVZT3685-79-34 15:29:00 Test Item Value Reference Range Interpretation Comments MCHC (test code = MCHC) 31.2 32.0-36.0 [facility] UptownCsmwgrnOHZGJOBATS3667-64-34 15:29:00 Test Item Value Reference Range Interpretation Comments MCV (test code = MCV) 78.0 80.0-98.0 [facility] UptownAwpspnvMOSITDJNBO7602-62-26 15:29:00 Test Item Value Reference Range Interpretation Comments WBC (test code = WBC) 8.6 3.7-10.4 [facility] UptownKqcfpcjTUFWOFWUPW5961-25-15 15:29:00 Test Item Value Reference Range Interpretation Comments Hgb (test code = Hgb) 13.2 12.0-16.0 [facility] UptownRxjmnxdQHFXNUAEMA2070-02-24 15:29:00 Test Item Value Reference Range Interpretation Comments RBC (test code = RBC) 5.41 4.20-5.40 [facility] UptownTgtxhnwSJEHOPGPKG7154-57-55 15:29:00 Test Item Value Reference Range Interpretation Comments Hct (test code = Hct) 42.1 36.0-48.0 [facility] UptownGipqndoHMUTEIXTHP1918-20-57 15:29:00 Test Item Value Reference Range Interpretation Comments Lymphocytes # (test code = Lymphocytes 3.2 1.0-5.5 #) [facility] UptownMacvoxlERICPYJVSW2060-39-01 15:29:00 Test Item Value Reference Range Interpretation Comments Eosinophils # (test code 0.1 See_Comment [A utomated message] The = Eosinophils #) system whic h generated this result tra nsmitted reference range : <=0.5. The reference r kat was not used to int erpret this result as normal/abnormal . [facility]ownOiaqrziOBACZXXRGA8608-75-23 15:29:00 Test Item Value Reference Range Interpretation Comments Monocytes # (test code 0.8 See_Comment [Aut omated message] The = Monocytes #) system which generated this result tra nsmitted reference range : <=0.8. The reference r kat was not used to int erpret this result as normal/abnormal . [facility]ownDypkzjpIEUDSASHTB5689-15-83 15:29:00 Test Item Value Reference Range Interpretation Comments Basophils (test code = 0.7 See_Comment [Aut omated message] The Basophils) system which ge nerated this result tra nsmitted reference range : <=1.0. The reference r kat was not used to int erpret this result as normal/abnormal . [facility]AhyxadcGEOHCUWMHQ0091-72-34 15:29:00 Test Item Value Reference Range Interpretation Comments Segs-Bands # (test code = Segs-Bands #) 4.4 1.5-8.1 [facility] CenterRjjbixjXYPHGWGVLD8205-59-53 15:29:00 Test Item Value Reference Range Interpretation Comments Eosinophils (test code = 1.2 See_Comment [A utomated message] The Eosinophils) system which ge nerated this result tra nsmitted reference range : <=4.0. The reference r kat was not used to int erpret this result as normal/abnormal . [facility] CenterHaqsouqNRUAZEEYBF8700-48-52 15:29:00 Test Item Value Reference Range Interpretation Comments Lymphocytes (test code = Lymphocytes) 37.4 20.0-40.0 [facility] CenterBmnpsjpEECPAPYQDD1731-85-03 15:29:00 Test Item Value Reference Range Interpretation Comments Monocytes (test code = Monocytes) 8.9 2.0-12.0 [facility] CenterAafpvrxSMNKPBRZPT0010-00-46 15:29:00 Test Item Value Reference Range Interpretation Comments Segs (test code = Segs) 51.8 45.0-75.0 [facility]QadytzgYGEONJBXEQ0520-24-49 15:29:00 Test Item Value Reference Range Interpretation Comments Microcyte (test code = 1+ *ABN*(08/12/15 Microcyte) 9:29 AM) [facility] CenterPuoegdcLXPSNUNNES1487-99-31 15:29:00 Test Item Value Reference Range Interpretation Comments Basophils # (test code 0.1 See_Comment [Aut omated message] The = Basophils #) system which generated this result tra nsmitted reference range : <=0.2. The reference r kat was not used to int erpret this result as normal/abnormal . [facility] CenterannURINE [id number] 15:29:00 Test Item Value Reference Range Interpretation Comments U Preg (test code = U Negative (08/12/15 9:29 Preg) AM) [facility] CenterannCHEM [id number] 15:29:00 Test Item Value Reference Range Interpretation Comments eGFR (test code = eGFR) 101 [facility]annCHEM [id number] 15:29:00 Test Item Value Reference Range Interpretation Comments Creatinine Lvl (test code = Creatinine 0.81 0.50-1.40 Lvl) [facility]2015-12-14 15:29:00 Test Item Value Reference Range Interpretation Comments CO2 (test code = CO2) 27 24-32 [facility]2015-12-14 15:29:00 Test Item Value Reference Range Interpretation Comments Calcium Lvl (test code = Calcium Lvl) 9.7 8.5-10.5 [facility]2015-12-14 15:29:00 Test Item Value Reference Range Interpretation Comments Chloride Lvl (test code = Chloride Lvl) 100 95-109 [facility]2015-12-14 15:29:00 Test Item Value Reference Range Interpretation Comments BUN (test code = BUN) 13 7-22 [facility]2015-12-14 15:29:00 Test Item Value Reference Range Interpretation Comments Glucose Lvl (test code = Glucose Lvl) 89 70-99 [facility]2015-12-14 15:29:00 Test Item Value Reference Range Interpretation Comments Potassium Lvl (test code = Potassium 4.2 3.5-5.1 Lvl) [facility]2015-12-14 15:29:00 Test Item Value Reference Range Interpretation Comments Sodium Lvl (test code = Sodium Lvl) 134 135-145 [facility]2015-12-14 15:29:00 Test Item Value Reference Range Interpretation Comments AGAP (test code = AGAP) 11.2 10.0-20.0 [facility]ptownBubzorqHAEQQEKNCF8605-68-44 15:29:00 Test Item Value Reference Range Interpretation Comments MPV (test code = MPV) 9.2 7.4-10.4 [facility] UptownUauttsmEEUORWQUHN0064-25-30 15:29:00 Test Item Value Reference Range Interpretation Comments Platelet (test code = Platelet) 307 133-450 [facility] UptownRkkvcedLTHJKAQXIE9740-75-75 15:29:00 Test Item Value Reference Range Interpretation Comments MCH (test code = MCH) 24.3 pg 27.0-31.0 [facility] UptownTnswkynRDKXLURIRU5229-12-15 15:29:00 Test Item Value Reference Range Interpretation Comments RDW (test code = RDW) 15.7 11.5-14.5 [facility] UptownTbhodneEWGAXJLUSN1846-05-84 15:29:00 Test Item Value Reference Range Interpretation Comments MCHC (test code = MCHC) 31.2 32.0-36.0 [facility]ownOwdhgceGNNSKQSXFX8224-50-72 15:29:00 Test Item Value Reference Range Interpretation Comments MCV (test code = MCV) 78.0 80.0-98.0 [facility] UptownIykfkjpUZZTCFFMLT3329-82-08 15:29:00 Test Item Value Reference Range Interpretation Comments WBC (test code = WBC) 8.6 3.7-10.4 [facility] UptownXnfdifiKZOWECZRXD2144-36-14 15:29:00 Test Item Value Reference Range Interpretation Comments Hgb (test code = Hgb) 13.2 12.0-16.0 [facility] UptownImjyixfMFULODRLRB6437-81-81 15:29:00 Test Item Value Reference Range Interpretation Comments RBC (test code = RBC) 5.41 4.20-5.40 [facility]ptownEhkkrhzLNCZJGBHSI9599-11-36 15:29:00 Test Item Value Reference Range Interpretation Comments Hct (test code = Hct) 42.1 36.0-48.0 [facility]ptownQkdjkclMMVFEAVRWT4740-05-45 15:29:00 Test Item Value Reference Range Interpretation Comments Lymphocytes # (test code = Lymphocytes 3.2 1.0-5.5 #) [facility]ownPnwhbgnDJGKCHSTSJ8516-04-97 15:29:00 Test Item Value Reference Range Interpretation Comments Eosinophils # (test code 0.1 See_Comment [A utomated message] The = Eosinophils #) system whic h generated this result tra nsmitted reference range : <=0.5. The reference r kat was not used to int erpret this result as normal/abnormal . [facility] UptownVuaobazHZAHDHVHFC9469-84-91 15:29:00 Test Item Value Reference Range Interpretation Comments Monocytes # (test code 0.8 See_Comment [Aut omated message] The = Monocytes #) system which generated this result tra nsmitted reference range : <=0.8. The reference r kat was not used to int erpret this result as normal/abnormal . [facility] UptownHyyzcwuIWLNYRFJVA1391-32-84 15:29:00 Test Item Value Reference Range Interpretation Comments Basophils (test code = 0.7 See_Comment [Aut omated message] The Basophils) system which ge nerated this result tra nsmitted reference range : <=1.0. The reference r kat was not used to int erpret this result as normal/abnormal . [facility] CenterSjuxlbrKCCAMFBVHE0779-67-26 15:29:00 Test Item Value Reference Range Interpretation Comments Segs-Bands # (test code = Segs-Bands #) 4.4 1.5-8.1 [facility] CenterPzyyygkMEAVKHDLCI9649-52-18 15:29:00 Test Item Value Reference Range Interpretation Comments Eosinophils (test code = 1.2 See_Comment [A utomated message] The Eosinophils) system which ge nerated this result tra nsmitted reference range : <=4.0. The reference r akt was not used to int erpret this result as normal/abnormal . [facility] CenterTawzzdlFHYSFUENNZ5621-90-00 15:29:00 Test Item Value Reference Range Interpretation Comments Lymphocytes (test code = Lymphocytes) 37.4 20.0-40.0 [facility] CenterEqeimuaNWVBMGURWB6550-69-09 15:29:00 Test Item Value Reference Range Interpretation Comments Monocytes (test code = Monocytes) 8.9 2.0-12.0 [facility] CenterAfcebwjGQPPJVNRMH4614-61-07 15:29:00 Test Item Value Reference Range Interpretation Comments Segs (test code = Segs) 51.8 45.0-75.0 [facility] CenterNydjptnGYDMPEXFSN0534-02-07 15:29:00 Test Item Value Reference Range Interpretation Comments Microcyte (test code = 1+ *ABN*(08/12/15 Microcyte) 9:29 AM) [facility] CenterUzveywpQMTHYJOVKQ4163-66-54 15:29:00 Test Item Value Reference Range Interpretation Comments Basophils # (test code 0.1 See_Comment [Aut omated message] The = Basophils #) system which generated this result tra nsmitted reference range : <=0.2. The reference r kat was not used to int erpret this result as normal/abnormal . [facility]annURINE [id number] 15:29:00 Test Item Value Reference Range Interpretation Comments U Preg (test code = U Negative (08/12/15 9:29 Preg) AM) [facility]annCHEM [id number] 15:29:00 Test Item Value Reference Range Interpretation Comments eGFR (test code = eGFR) 101 [facility]annCHEM BILSS7296-03-08 15:29:00 Test Item Value Reference Range Interpretation Comments Creatinine Lvl (test code = Creatinine 0.81 0.50-1.40 Lvl) [facility]2015-12-14 15:29:00 Test Item Value Reference Range Interpretation Comments CO2 (test code = CO2) 27 24-32 [facility]2015-12-14 15:29:00 Test Item Value Reference Range Interpretation Comments Calcium Lvl (test code = Calcium Lvl) 9.7 8.5-10.5 [facility]2015-12-14 15:29:00 Test Item Value Reference Range Interpretation Comments Chloride Lvl (test code = Chloride Lvl) 100 95-109 [facility]2015-12-14 15:29:00 Test Item Value Reference Range Interpretation Comments BUN (test code = BUN) 13 7-22 [facility]2015-12-14 15:29:00 Test Item Value Reference Range Interpretation Comments Glucose Lvl (test code = Glucose Lvl) 89 70-99 [facility]2015-12-14 15:29:00 Test Item Value Reference Range Interpretation Comments Potassium Lvl (test code = Potassium 4.2 3.5-5.1 Lvl) [facility]2015-12-14 15:29:00 Test Item Value Reference Range Interpretation Comments Sodium Lvl (test code = Sodium Lvl) 134 135-145 [facility]2015-12-14 15:29:00 Test Item Value Reference Range Interpretation Comments AGAP (test code = AGAP) 11.2 10.0-20.0 [facility]ptownIvztkgfAYTHPWXMUG3654-96-83 15:29:00 Test Item Value Reference Range Interpretation Comments MPV (test code = MPV) 9.2 7.4-10.4 [facility] UptownKjroacyNBEIBUXCDJ4247-62-64 15:29:00 Test Item Value Reference Range Interpretation Comments Platelet (test code = Platelet) 307 133-450 [facility] UptownYrkomqmYKCZJFGOTJ5006-86-34 15:29:00 Test Item Value Reference Range Interpretation Comments MCH (test code = MCH) 24.3 pg 27.0-31.0 [facility] UptownSghwmugFMMWHIYAII6121-09-65 15:29:00 Test Item Value Reference Range Interpretation Comments RDW (test code = RDW) 15.7 11.5-14.5 [facility] UptownKdmpwepFFGAWCIJVT1206-75-88 15:29:00 Test Item Value Reference Range Interpretation Comments MCHC (test code = MCHC) 31.2 32.0-36.0 [facility] UptownJmgaekwIWSJYPXGBX7190-05-14 15:29:00 Test Item Value Reference Range Interpretation Comments MCV (test code = MCV) 78.0 80.0-98.0 [facility] UptownZofsiilXCIMHPMRPU4900-24-68 15:29:00 Test Item Value Reference Range Interpretation Comments WBC (test code = WBC) 8.6 3.7-10.4 [facility] UptownHmpkyorNWVAWMZUYW2064-84-04 15:29:00 Test Item Value Reference Range Interpretation Comments Hgb (test code = Hgb) 13.2 12.0-16.0 [facility] UptownFtrdyctLBPSJGJAGL3489-27-92 15:29:00 Test Item Value Reference Range Interpretation Comments RBC (test code = RBC) 5.41 4.20-5.40 [facility] UptownBtrfmkdSEIMBPMBJR6174-79-22 15:29:00 Test Item Value Reference Range Interpretation Comments Hct (test code = Hct) 42.1 36.0-48.0 [facility] UptownDvnzkxfGBKNOBJWRO3384-79-68 15:29:00 Test Item Value Reference Range Interpretation Comments Lymphocytes # (test code = Lymphocytes 3.2 1.0-5.5 #) [facility] UptownHagmqbbAXIQEMMEAI9916-54-23 15:29:00 Test Item Value Reference Range Interpretation Comments Eosinophils # (test code 0.1 See_Comment [A utomated message] The = Eosinophils #) system whic h generated this result tra nsmitted reference range : <=0.5. The reference r kat was not used to int erpret this result as normal/abnormal . [facility] UptownEcsfbskBCROKNUBNA2578-36-59 15:29:00 Test Item Value Reference Range Interpretation Comments Monocytes # (test code 0.8 See_Comment [Aut omated message] The = Monocytes #) system which generated this result tra nsmitted reference range : <=0.8. The reference r kat was not used to int erpret this result as normal/abnormal . [facility] UptownJecdvroUITJAWDUTA9126-42-45 15:29:00 Test Item Value Reference Range Interpretation Comments Basophils (test code = 0.7 See_Comment [Aut omated message] The Basophils) system which ge nerated this result tra nsmitted reference range : <=1.0. The reference r kat was not used to int erpret this result as normal/abnormal . [facility] HealthOcvarokIUSUTZWBUQ7899-13-14 15:29:00 Test Item Value Reference Range Interpretation Comments Segs-Bands # (test code = Segs-Bands #) 4.4 1.5-8.1 [facility] HealthRummapvVRNUSRHWLN9355-58-90 15:29:00 Test Item Value Reference Range Interpretation Comments Eosinophils (test code = 1.2 See_Comment [A utomated message] The Eosinophils) system which ge nerated this result tra nsmitted reference range : <=4.0. The reference r kat was not used to int erpret this result as normal/abnormal . [facility] HealthUveypgoJIZLYMCMPD2149-29-20 15:29:00 Test Item Value Reference Range Interpretation Comments Lymphocytes (test code = Lymphocytes) 37.4 20.0-40.0 [facility] HealthHjrnkzbGTIQPMIPXB3054-30-04 15:29:00 Test Item Value Reference Range Interpretation Comments Monocytes (test code = Monocytes) 8.9 2.0-12.0 [facility] HealthNifkpngDWCPVWBUQQ7285-59-92 15:29:00 Test Item Value Reference Range Interpretation Comments Segs (test code = Segs) 51.8 45.0-75.0 [facility] HealthMnvfgvsIALYSYMFPH6988-10-21 15:29:00 Test Item Value Reference Range Interpretation Comments Microcyte (test code = 1+ *ABN*(08/12/15 Microcyte) 9:29 AM) [facility] CenterDgkyckxMISNPQVAVZ3285-25-87 15:29:00 Test Item Value Reference Range Interpretation Comments Basophils # (test code 0.1 See_Comment [Aut omated message] The = Basophils #) system which generated this result tra nsmitted reference range : <=0.2. The reference r kat was not used to int erpret this result as normal/abnormal . [facility]annURINE RGGN0713-18-25 15:29:00 Test Item Value Reference Range Interpretation Comments U Preg (test code = U Negative (08/12/15 9:29 Preg) AM) [facility]annCHEM [id number] 15:29:00 Test Item Value Reference Range Interpretation Comments eGFR (test code = eGFR) 101 [facility] CenterannCHEM HEQKB9557-63-73 15:29:00 Test Item Value Reference Range Interpretation Comments Creatinine Lvl (test code = Creatinine 0.81 0.50-1.40 Lvl) [facility]2015-12-14 15:29:00 Test Item Value Reference Range Interpretation Comments CO2 (test code = CO2) 27 24-32 [facility]2015-12-14 15:29:00 Test Item Value Reference Range Interpretation Comments Calcium Lvl (test code = Calcium Lvl) 9.7 8.5-10.5 [facility]2015-12-14 15:29:00 Test Item Value Reference Range Interpretation Comments Chloride Lvl (test code = Chloride Lvl) 100 95-109 [facility]2015-12-14 15:29:00 Test Item Value Reference Range Interpretation Comments BUN (test code = BUN) 13 7-22 [facility]2015-12-14 15:29:00 Test Item Value Reference Range Interpretation Comments Glucose Lvl (test code = Glucose Lvl) 89 70-99 [facility]2015-12-14 15:29:00 Test Item Value Reference Range Interpretation Comments Potassium Lvl (test code = Potassium 4.2 3.5-5.1 Lvl) [facility]2015-12-14 15:29:00 Test Item Value Reference Range Interpretation Comments Sodium Lvl (test code = Sodium Lvl) 134 135-145 [facility]2015-12-14 15:29:00 Test Item Value Reference Range Interpretation Comments AGAP (test code = AGAP) 11.2 10.0-20.0 [facility]ownKmfrhjwOTDGITUQAH4753-54-40 15:29:00 Test Item Value Reference Range Interpretation Comments MPV (test code = MPV) 9.2 7.4-10.4 [facility] UptownUykntvfCWCSTIIRMV4551-98-67 15:29:00 Test Item Value Reference Range Interpretation Comments Platelet (test code = Platelet) 307 133-450 [facility] UptownPvnbmgrEQPOSAERDV8765-97-04 15:29:00 Test Item Value Reference Range Interpretation Comments MCH (test code = MCH) 24.3 pg 27.0-31.0 [facility] UptownNujtoubOAGYAWELFZ8445-82-23 15:29:00 Test Item Value Reference Range Interpretation Comments RDW (test code = RDW) 15.7 11.5-14.[address]12-14 15:29:00 Test Item Value Reference Range Interpretation Comments MCHC (test code = MCHC) 31.2 32.0-36.0 [facility] UptownIwvhikrFWJSGKSYDE7265-94-51 15:29:00 Test Item Value Reference Range Interpretation Comments MCV (test code = MCV) 78.0 80.0-98.0 [facility] UptownQudpsigDOTUIDXUFT3131-85-30 15:29:00 Test Item Value Reference Range Interpretation Comments WBC (test code = WBC) 8.6 3.7-10.4 [facility] UptownHoizqcdEMFUQTBZSQ4045-24-40 15:29:00 Test Item Value Reference Range Interpretation Comments Hgb (test code = Hgb) 13.2 12.0-16.0 [facility] UptownWahvxuaMGBUGPLBPJ5287-39-12 15:29:00 Test Item Value Reference Range Interpretation Comments RBC (test code = RBC) 5.41 4.20-5.40 [facility] UptownAnnlvegARCKPAPLEQ0258-49-82 15:29:00 Test Item Value Reference Range Interpretation Comments Hct (test code = Hct) 42.1 36.0-48.0 [facility] UptownVnktkqtEBWTYOKUVU6591-05-17 15:29:00 Test Item Value Reference Range Interpretation Comments Lymphocytes # (test code = Lymphocytes 3.2 1.0-5.5 #) [facility] UptownIbtftzbMKVSZDRKWW9517-09-19 15:29:00 Test Item Value Reference Range Interpretation Comments Eosinophils # (test code 0.1 See_Comment [A utomated message] The = Eosinophils #) system whic h generated this result tra nsmitted reference range : <=0.5. The reference r kat was not used to int erpret this result as normal/abnormal . [facility] UptownXsugoqjLXLBDJFRLR5361-68-50 15:29:00 Test Item Value Reference Range Interpretation Comments Monocytes # (test code 0.8 See_Comment [Aut omated message] The = Monocytes #) system which generated this result tra nsmitted reference range : <=0.8. The reference r kat was not used to int erpret this result as normal/abnormal . [facility] UptownYqyxwddPKXTPDEQSN7633-20-42 15:29:00 Test Item Value Reference Range Interpretation Comments Basophils (test code = 0.7 See_Comment [Aut omated message] The Basophils) system which ge nerated this result tra nsmitted reference range : <=1.0. The reference r kat was not used to int erpret this result as normal/abnormal . [facility] HealthEkrnipkKQORNMWKBR6075-56-47 15:29:00 Test Item Value Reference Range Interpretation Comments Segs-Bands # (test code = Segs-Bands #) 4.4 1.5-8.1 [facility] CenterJcbhbajTJFRMWSBSF1926-19-83 15:29:00 Test Item Value Reference Range Interpretation Comments Eosinophils (test code = 1.2 See_Comment [A utomated message] The Eosinophils) system which ge nerated this result tra nsmitted reference range : <=4.0. The reference r kat was not used to int erpret this result as normal/abnormal . [facility] CenterTnztzvgHSDDYECQLK2091-19-99 15:29:00 Test Item Value Reference Range Interpretation Comments Lymphocytes (test code = Lymphocytes) 37.4 20.0-40.0 [facility] CenterTdnjuokNUJIVOOOUI4342-46-97 15:29:00 Test Item Value Reference Range Interpretation Comments Monocytes (test code = Monocytes) 8.9 2.0-12.0 [facility] CenterMkywlyaLGCPCRCHVJ0759-42-62 15:29:00 Test Item Value Reference Range Interpretation Comments Segs (test code = Segs) 51.8 45.0-75.0 [facility] HealthJmzquoeLGMGOPNUOM5592-55-39 15:29:00 Test Item Value Reference Range Interpretation Comments Microcyte (test code = 1+ *ABN*(08/12/15 Microcyte) 9:29 AM) [facility] CenterDawqkirFEQWXLWLHC2193-01-23 15:29:00 Test Item Value Reference Range Interpretation Comments Basophils # (test code 0.1 See_Comment [Aut omated message] The = Basophils #) system which generated this result tra nsmitted reference range : <=0.2. The reference r kat was not used to int erpret this result as normal/abnormal . [facility]annURINE YKPT9872-43-28 15:29:00 Test Item Value Reference Range Interpretation Comments U Preg (test code = U Negative (08/12/15 9:29 Preg) AM) [facility] CenterannCHEM GJHQX5076-72-51 15:29:00 Test Item Value Reference Range Interpretation Comments eGFR (test code = eGFR) 101 [facility]annCHEM IPDJA3654-41-25 15:29:00 Test Item Value Reference Range Interpretation Comments Creatinine Lvl (test code = Creatinine 0.81 0.50-1.40 Lvl) [facility]2015-12-14 15:29:00 Test Item Value Reference Range Interpretation Comments CO2 (test code = CO2) 27 24-32 [place] 203065-12-14 15:29:00 Test Item Value Reference Range Interpretation Comments Calcium Lvl (test code = Calcium Lvl) 9.7 8.5-10.5 [facility]2015-12-14 15:29:00 Test Item Value Reference Range Interpretation Comments Chloride Lvl (test code = Chloride Lvl) 100 95-109 [facility]2015-12-14 15:29:00 Test Item Value Reference Range Interpretation Comments BUN (test code = BUN) 13 7-22 [facility]2015-12-14 15:29:00 Test Item Value Reference Range Interpretation Comments Glucose Lvl (test code = Glucose Lvl) 89 70-99 [facility]2015-12-14 15:29:00 Test Item Value Reference Range Interpretation Comments Potassium Lvl (test code = Potassium 4.2 3.5-5.1 Lvl) [facility]2015-12-14 15:29:00 Test Item Value Reference Range Interpretation Comments Sodium Lvl (test code = Sodium Lvl) 134 135-145 [facility]2015-12-14 15:29:00 Test Item Value Reference Range Interpretation Comments AGAP (test code = AGAP) 11.2 10.0-20.0 [facility]ownTilssxnQUYWRNSXBK9165-66-04 15:29:00 Test Item Value Reference Range Interpretation Comments MPV (test code = MPV) 9.2 7.4-10.4 [facility] UptownQvvvupkVXZQTTJFKF4297-66-78 15:29:00 Test Item Value Reference Range Interpretation Comments Platelet (test code = Platelet) 307 133-450 [facility]ownFzqwqmnOBUYYCITNS1831-42-98 15:29:00 Test Item Value Reference Range Interpretation Comments MCH (test code = MCH) 24.3 pg 27.0-31.0 [facility]ptownRgshgmjZFSTZLSCZL1681-43-85 15:29:00 Test Item Value Reference Range Interpretation Comments RDW (test code = RDW) 15.7 11.5-14.5 [place] [id number] 15:29:00 Test Item Value Reference Range Interpretation Comments MCHC (test code = MCHC) 31.2 32.0-36.0 [facility] UptownFlwacdxYGRVPIAMYH1785-22-43 15:29:00 Test Item Value Reference Range Interpretation Comments MCV (test code = MCV) 78.0 80.0-98.0 [facility]ptownEmwwlwwTSALFAPMPH9914-10-02 15:29:00 Test Item Value Reference Range Interpretation Comments WBC (test code = WBC) 8.6 3.7-10.4 [facility] UptownMqagrclRGKEZGUULC4471-05-79 15:29:00 Test Item Value Reference Range Interpretation Comments Hgb (test code = Hgb) 13.2 12.0-16.0 [facility]ptownBbvfyqzHBJQRVVZRT2411-28-84 15:29:00 Test Item Value Reference Range Interpretation Comments RBC (test code = RBC) 5.41 4.20-5.40 [facility] UptownSfimnoeNCCWBJRBGT8673-76-70 15:29:00 Test Item Value Reference Range Interpretation Comments Hct (test code = Hct) 42.1 36.0-48.0 [facility] UptownPlivcmgRDJAKYKRQI3252-77-33 15:29:00 Test Item Value Reference Range Interpretation Comments Lymphocytes # (test code = Lymphocytes 3.2 1.0-5.5 #) [facility]ptownPpuwjhoSKSGRZAKJE4296-78-38 15:29:00 Test Item Value Reference Range Interpretation Comments Eosinophils # (test code 0.1 See_Comment [A utomated message] The = Eosinophils #) system whic h generated this result tra nsmitted reference range : <=0.5. The reference r kat was not used to int erpret this result as normal/abnormal . [facility] UptownJygwljiVVIAEXEADJ5763-25-91 15:29:00 Test Item Value Reference Range Interpretation Comments Monocytes # (test code 0.8 See_Comment [Aut omated message] The = Monocytes #) system which generated this result tra nsmitted reference range : <=0.8. The reference r kat was not used to int erpret this result as normal/abnormal . [facility]ownPtniqsjIRUSUFWCEL7572-58-30 15:29:00 Test Item Value Reference Range Interpretation Comments Basophils (test code = 0.7 See_Comment [Aut omated message] The Basophils) system which ge nerated this result tra nsmitted reference range : <=1.0. The reference r kat was not used to int erpret this result as normal/abnormal . [facility] UptownTbesziuAEMPATVNZC6220-97-81 15:29:00 Test Item Value Reference Range Interpretation Comments Segs-Bands # (test code = Segs-Bands #) 4.4 1.5-8.1 [facility]ptownVegcgpjGHKQUZYQRL2073-40-50 15:29:00 Test Item Value Reference Range Interpretation Comments Eosinophils (test code = 1.2 See_Comment [A utomated message] The Eosinophils) system which ge nerated this result tra nsmitted reference range : <=4.0. The reference r kat was not used to int erpret this result as normal/abnormal . [facility]ptownWbjnrrhKQSLUZFVHH3476-57-39 15:29:00 Test Item Value Reference Range Interpretation Comments Lymphocytes (test code = Lymphocytes) 37.4 20.0-40.0 [facility] UptownAjedcqdRIECSSBAUW7455-90-49 15:29:00 Test Item Value Reference Range Interpretation Comments Monocytes (test code = Monocytes) 8.9 2.0-12.0 [facility]ptownKlhjqkbGVYZKCFUYE8655-27-01 15:29:00 Test Item Value Reference Range Interpretation Comments Segs (test code = Segs) 51.8 45.0-75.0 [facility]ptownQrfdencOSUACIHKDP8150-60-77 15:29:00 Test Item Value Reference Range Interpretation Comments Microcyte (test code = 1+ *ABN*(08/12/15 Microcyte) 9:29 AM) [facility]ptownApboydlVZLNKOGOIE9317-33-58 15:29:00 Test Item Value Reference Range Interpretation Comments Basophils # (test code 0.1 See_Comment [Aut omated message] The = Basophils #) system which generated this result tra nsmitted reference range : <=0.2. The reference r kat was not used to int erpret this result as normal/abnormal . [facility]2015-12-14 15:29:00 Test Item Value Reference Range Interpretation Comments U Preg (test code = U Negative (08/12/15 9:29 Preg) AM) [facility]2015-10-26 15:15:00 Test Item Value Reference Range Interpretation Comments U Preg (test code = U Negative (06/24/15 10:15 Preg) AM) [id number] 15:15:[facility] Test Item Value Reference Range Interpretation Comments U Preg (test code = U Negative (06/24/15 10:15 Preg) AM) [facility] [id number] 15:15:00 Test Item Value Reference Range Interpretation Comments U Preg (test code = U Negative (06/24/15 10:15 Preg) AM) [facility] [id number] 15:15:00 Test Item Value Reference Range Interpretation Comments U Preg (test code = U Negative (06/24/15 10:15 Preg) AM) [facility] [id number] 15:15:00 Test Item Value Reference Range Interpretation Comments U Preg (test code = U Negative (06/24/15 10:15 Preg) AM) [facility] [id number] 15:15:00 Test Item Value Reference Range Interpretation Comments U Preg (test code = U Negative (06/24/15 10:15 Preg) AM) [facility] [id number] 15:15:00 Test Item Value Reference Range Interpretation Comments U Preg (test code = U Negative (06/24/15 10:15 Preg) AM) [facility] [id number] 15:15:00 Test Item Value Reference Range Interpretation Comments U Preg (test code = U Negative (06/24/15 10:15 Preg) AM) [facility] [id number] 15:15:00 Test Item Value Reference Range Interpretation Comments U Preg (test code = U Negative (06/24/15 10:15 Preg) AM) [facility] [id number] 15:15:00 Test Item Value Reference Range Interpretation Comments U Preg (test code = U Negative (06/24/15 10:15 Preg) AM) [facility] [id number] 15:15:00 Test Item Value Reference Range Interpretation Comments U Preg (test code = U Negative (06/24/15 10:15 Preg) AM) [facility] [id number] 15:15:00 Test Item Value Reference Range Interpretation Comments U Preg (test code = U Negative (06/24/15 10:15 Preg) AM) [facility] [id number] 15:15:00 Test Item Value Reference Range Interpretation Comments U Preg (test code = U Negative (06/24/15 10:15 Preg) AM) [facility] [id number] 15:15:00 Test Item Value Reference Range Interpretation Comments U Preg (test code = U Negative (06/24/15 10:15 Preg) AM) [facility] [id number] 15:15:00 Test Item Value Reference Range Interpretation Comments U Preg (test code = U Negative (06/24/15 10:15 Preg) AM) [facility] [id number] 15:15:00 Test Item Value Reference Range Interpretation Comments U Preg (test code = U Negative (06/24/15 10:15 Preg) AM) [facility]2015-10-26 15:15:00 Test Item Value Reference Range Interpretation Comments U Preg (test code = U Negative (06/24/15 10:15 Preg) AM) [facility]2015-10-09 22:58:56 Test Item Value Reference Range Interpretation Comments U Cotinine Lvl (test Negative *NA*(06/07/15 code = U Cotinine Lvl) 5:58 PM) [facility]2015-10-09 22:58:56 Test Item Value Reference Range Interpretation Comments U Preg (test code = U Negative (06/07/15 5:58 Preg) PM) [facility]2015-10-09 22:58:56 Test Item Value Reference Range Interpretation Comments U Cotinine Lvl (test Negative *NA*(06/07/15 code = U Cotinine Lvl) 5:58 PM) [facility]2015-10-09 22:58:56 Test Item Value Reference Range Interpretation Comments U Preg (test code = U Negative (06/07/15 5:58 Preg) PM) [facility]2015-10-09 22:58:56 Test Item Value Reference Range Interpretation Comments U Cotinine Lvl (test Negative *NA*(06/07/15 code = U Cotinine Lvl) 5:58 PM) [facility]2015-10-09 22:58:56 Test Item Value Reference Range Interpretation Comments U Preg (test code = U Negative (06/07/15 5:58 Preg) PM) [facility] [id number] 22:58:56 Test Item Value Reference Range Interpretation Comments U Cotinine Lvl (test Negative *NA*(06/07/15 code = U Cotinine Lvl) 5:58 PM) [facility]2015-10-09 22:58:56 Test Item Value Reference Range Interpretation Comments U Preg (test code = U Negative (06/07/15 5:58 Preg) PM) [facility]2015-10-09 22:58:56 Test Item Value Reference Range Interpretation Comments U Cotinine Lvl (test Negative *NA*(06/07/15 code = U Cotinine Lvl) 5:58 PM) [facility]2015-10-09 22:58:56 Test Item Value Reference Range Interpretation Comments U Preg (test code = U Negative (06/07/15 5:58 Preg) PM) [facility]2015-10-09 22:58:56 Test Item Value Reference Range Interpretation Comments U Cotinine Lvl (test Negative *NA*(06/07/15 code = U Cotinine Lvl) 5:58 PM) [facility]2015-10-09 22:58:56 Test Item Value Reference Range Interpretation Comments U Preg (test code = U Negative (06/07/15 5:58 Preg) PM) [facility]2015-10-09 22:58:56 Test Item Value Reference Range Interpretation Comments U Cotinine Lvl (test Negative *NA*(06/07/15 code = U Cotinine Lvl) 5:58 PM) [facility]2015-10-09 22:58:56 Test Item Value Reference Range Interpretation Comments U Preg (test code = U Negative (06/07/15 5:58 Preg) PM) [facility]2015-10-09 22:58:56 Test Item Value Reference Range Interpretation Comments U Cotinine Lvl (test Negative *NA*(06/07/15 code = U Cotinine Lvl) 5:58 PM) [facility]2015-10-09 22:58:56 Test Item Value Reference Range Interpretation Comments U Preg (test code = U Negative (06/07/15 5:58 Preg) PM) [facility]2015-10-09 22:58:56 Test Item Value Reference Range Interpretation Comments U Cotinine Lvl (test Negative *NA*(06/07/15 code = U Cotinine Lvl) 5:58 PM) [facility]2015-10-09 22:58:56 Test Item Value Reference Range Interpretation Comments U Preg (test code = U Negative (06/07/15 5:58 Preg) PM) [facility]2015-10-09 22:58:56 Test Item Value Reference Range Interpretation Comments U Cotinine Lvl (test Negative *NA*(06/07/15 code = U Cotinine Lvl) 5:58 PM) [facility]2015-10-09 22:58:56 Test Item Value Reference Range Interpretation Comments U Preg (test code = U Negative (06/07/15 5:58 Preg) PM) [facility]2015-10-09 22:58:56 Test Item Value Reference Range Interpretation Comments U Cotinine Lvl (test Negative *NA*(06/07/15 code = U Cotinine Lvl) 5:58 PM) [facility]2015-10-09 22:58:56 Test Item Value Reference Range Interpretation Comments U Preg (test code = U Negative (06/07/15 5:58 Preg) PM) [facility]2015-10-09 22:58:56 Test Item Value Reference Range Interpretation Comments U Cotinine Lvl (test Negative *NA*(06/07/15 code = U Cotinine Lvl) 5:58 PM) [facility]2015-10-09 22:58:56 Test Item Value Reference Range Interpretation Comments U Preg (test code = U Negative (06/07/15 5:58 Preg) PM) [facility]2015-10-09 22:58:56 Test Item Value Reference Range Interpretation Comments U Cotinine Lvl (test Negative *NA*(06/07/15 code = U Cotinine Lvl) 5:58 PM) [facility]2015-10-09 22:58:56 Test Item Value Reference Range Interpretation Comments U Preg (test code = U Negative (06/07/15 5:58 Preg) PM) [facility]2015-10-09 22:58:56 Test Item Value Reference Range Interpretation Comments U Cotinine Lvl (test Negative *NA*(06/07/15 code = U Cotinine Lvl) 5:58 PM) [facility]2015-10-09 22:58:56 Test Item Value Reference Range Interpretation Comments U Preg (test code = U Negative (06/07/15 5:58 Preg) PM) [facility]2015-10-09 22:58:56 Test Item Value Reference Range Interpretation Comments U Cotinine Lvl (test Negative *NA*(06/07/15 code = U Cotinine Lvl) 5:58 PM) [facility]2015-10-09 22:58:56 Test Item Value Reference Range Interpretation Comments U Preg (test code = U Negative (06/07/15 5:58 Preg) PM) [facility]2015-10-09 22:58:56 Test Item Value Reference Range Interpretation Comments U Cotinine Lvl (test Negative *NA*(06/07/15 code = U Cotinine Lvl) 5:58 PM) [facility]2015-10-09 22:58:56 Test Item Value Reference Range Interpretation Comments U Preg (test code = U Negative (06/07/15 5:58 Preg) PM) [facility]2015-10-09 22:58:56 Test Item Value Reference Range Interpretation Comments U Cotinine Lvl (test Negative *NA*(06/07/15 code = U Cotinine Lvl) 5:58 PM) [facility]2015-10-09 22:58:56 Test Item Value Reference Range Interpretation Comments U Preg (test code = U Negative (06/07/15 5:58 Preg) PM) [facility]2015-10-09 22:53:19 Test Item Value Reference Range Interpretation Comments B/C Ratio (test code = B/C Ratio) 13 6-25 [facility]2015-10-09 22:53:19 Test Item Value Reference Range Interpretation Comments Globulin (test code = Globulin) 3.6 2.0-4.0 [facility] [id number] 22:53:19 Test Item Value Reference Range Interpretation Comments Magnesium Lvl (test code = Magnesium 1.8 1.8-2.4 Lvl) [facility]ownQ[id number] 22:53:19 Test Item Value Reference Range Interpretation Comments Segs (test code = Segs) 57.5 45.0-75.0 [facility]ptownUanltbkJTAECCQMNS2497-78-63 22:53:19 Test Item Value Reference Range Interpretation Comments Monocytes (test code = Monocytes) 7.6 2.0-12.0 [facility]ptownMgpvlbfHGLLTBTEGB3777-93-94 22:53:19 Test Item Value Reference Range Interpretation Comments Basophils (test code = 1.0 See_Comment [Aut omated message] The Basophils) system which ge nerated this result tra nsmitted reference range : <=1.0. The reference r kat was not used to int erpret this result as normal/abnormal . [facility] UptownTxytaqlDYXDFYHIES1805-48-73 22:53:19 Test Item Value Reference Range Interpretation Comments Lymphocytes (test code = Lymphocytes) 32.9 20.0-40.0 [facility] UptownPrnurfaBLPXHSEWWE5014-01-94 22:53:19 Test Item Value Reference Range Interpretation Comments Eosinophils (test code = 1.0 See_Comment [A utomated message] The Eosinophils) system which ge nerated this result tra nsmitted reference range : <=4.0. The reference r kat was not used to int erpret this result as normal/abnormal . [facility]ownGqjvioyOLLPLVBUCA1620-43-34 22:53:19 Test Item Value Reference Range Interpretation Comments Lymphocytes # (test code = Lymphocytes 3.8 1.0-5.5 #) [facility] UptownWdudpwmBKBMZCSNOK7692-11-91 22:53:19 Test Item Value Reference Range Interpretation Comments Segs-Bands # (test code = Segs-Bands #) 6.6 1.5-8.1 [facility]ptownLkuybfyXQFKITJPRY3669-45-21 22:53:19 Test Item Value Reference Range Interpretation Comments Eosinophils # (test code 0.1 See_Comment [A utomated message] The = Eosinophils #) system [facility] h generated this result tra nsmitted reference range : <=0.5. The reference r kat was not used to int erpret this result as normal/abnormal . [facility]ownGfbkgfyPOUOFXZNYD0124-20-69 22:53:19 Test Item Value Reference Range Interpretation Comments Monocytes # (test code 0.9 See_Comment [Aut omated message] The = Monocytes #) system which generated this result tra nsmitted reference range : <=0.8. The reference r kat was not used to int erpret this result as normal/abnormal . [facility]ownQspgjgsGWHLQVXITE8827-19-30 22:53:19 Test Item Value Reference Range Interpretation Comments Microcyte (test code = 1+ *ABN*(06/07/15 Microcyte) 5:53 PM) [facility]ownQxiwbpeLKVNQVRQDM0416-72-65 22:53:19 Test Item Value Reference Range Interpretation Comments Basophils # (test code 0.1 See_Comment [Aut omated message] The = Basophils #) system which generated this result tra nsmitted reference range : <=0.2. The reference r kat was not used to int erpret this result as normal/abnormal . [facility]ownSjqqzgxJEZZAFMLZV9180-63-13 22:53:19 Test Item Value Reference Range Interpretation Comments RBC (test code = RBC) 5.23 4.20-5.40 [facility]ptownWpybsdcAJCJDHKLVI3552-77-92 22:53:19 Test Item Value Reference Range Interpretation Comments Platelet (test code = Platelet) 241 133-450 [facility] UptownNdxqiazQQWGSEXICX5427-98-16 22:53:19 Test Item Value Reference Range Interpretation Comments MPV (test code = MPV) 9.3 7.4-10.4 [facility] UptownDyjppgiQURZYBMLOR0628-52-76 22:53:19 Test Item Value Reference Range Interpretation Comments RDW (test code = RDW) 16.5 11.5-14.5 [facility] UptownTnzgukkPWCTPHFTAT3384-49-77 22:53:19 Test Item Value Reference Range Interpretation Comments Hct (test code = Hct) 41.0 36.0-48.0 [facility] UptownTcsxbrzAXQYXQNXRX9133-25-70 22:53:19 Test Item Value Reference Range Interpretation Comments Hgb (test code = Hgb) 12.7 12.0-16.0 [facility]ownGsvbjfcGXSVOQGVRW7717-25-47 22:53:19 Test Item Value Reference Range Interpretation Comments WBC (test code = WBC) 11.5 3.7-10.4 [facility] UptownEcryximGRDZTZCXAM3719-26-84 22:53:19 Test Item Value Reference Range Interpretation Comments MCH (test code = MCH) 24.3 pg 27.0-31.0 [facility] UptownOfifhawTLFTNQVBDB4425-61-05 22:53:19 Test Item Value Reference Range Interpretation Comments MCHC (test code = MCHC) 31.0 32.0-36.0 [facility] UptownNrvrhkmPAKFPTHXQE4381-14-25 22:53:19 Test Item Value Reference Range Interpretation Comments MCV (test code = MCV) 78.4 80.0-98.0 [facility]2015-10-09 22:53:19 Test Item Value Reference Range Interpretation Comments FTI (test code = FTI) 2.5 [facility]2015-10-09 22:53:19 Test Item Value Reference Range Interpretation Comments TSH (test code = TSH) 1.540 0.360-3.740 [facility]2015-10-09 22:53:19 Test Item Value Reference Range Interpretation Comments T3 Uptake (test code = T3 Uptake) 31 31-39 [facility]2015-10-09 22:53:19 Test Item Value Reference Range Interpretation Comments T4 (test code = T4) 8.0 4.7-13.3 [facility]2015-10-09 22:53:19 Test Item Value Reference Range Interpretation Comments Transferrin (test code = Transferrin) 256 212-360 [facility]2015-10-09 22:53:19 Test Item Value Reference Range Interpretation Comments Vitamin B12 Lvl (test code = Vitamin 614 412-3048 B12 Lvl) [facility]2015-10-09 22:53:19 Test Item Value Reference Range Interpretation Comments eGFR (test code = eGFR) 70 [facility]2015-10-09 22:53:19 Test Item Value Reference Range Interpretation Comments Glucose Lvl (test code = Glucose Lvl) 103 70-99 [facility]2015-10-09 22:53:19 Test Item Value Reference Range Interpretation Comments Albumin Lvl (test code = Albumin Lvl) 3.6 3.5-5.0 [facility]2015-10-09 22:53:19 Test Item Value Reference Range Interpretation Comments CO2 (test code = CO2) 24 24-32 [facility]2015-10-09 22:53:19 Test Item Value Reference Range Interpretation Comments Total Protein (test code = Total 7.2 6.4-8.4 Protein) [facility]2015-10-09 22:53:19 Test Item Value Reference Range Interpretation Comments Creatinine Lvl (test code = Creatinine 1.1 0.5-1.4 Lvl) [facility]2015-10-09 22:53:19 Test Item Value Reference Range Interpretation Comments BUN (test code = BUN) 14 7-22 [facility]2015-10-09 22:53:19 Test Item Value Reference Range Interpretation Comments AST (test code = AST) 12 See_Comment [Auto mated message] The system which ge nerated this result transmit arvind reference range : <=37. The reference range was not used to interpr et this result as mario l/abnormal. [facility]2015-10-09 22:53:19 Test Item Value Reference Range Interpretation Comments ALT (test code = ALT) 41 See_Comment [Auto mated message] The system which ge nerated this result transmit arvind reference range : <=65. The reference range was not used to interpr et this result as mario l/abnormal. [facility]2015-10-09 22:53:19 Test Item Value Reference Range Interpretation Comments Alk Phos (test code = Alk Phos) 100 39-136 [facility]2015-10-09 22:53:19 Test Item Value Reference Range Interpretation Comments Bili Total (test code = Bili Total) 0.2 0.2-1.3 [facility]2015-10-09 22:53:19 Test Item Value Reference Range Interpretation Comments Potassium Lvl (test code = Potassium 3.9 3.5-5.1 Lvl) [facility]2015-10-09 22:53:19 Test Item Value Reference Range Interpretation Comments Sodium Lvl (test code = Sodium Lvl) 141 135-145 [facility]2015-10-09 22:53:19 Test Item Value Reference Range Interpretation Comments Calcium Lvl (test code = Calcium Lvl) 9.0 8.5-10.5 [facility]2015-10-09 22:53:19 Test Item Value Reference Range Interpretation Comments Chloride Lvl (test code = Chloride Lvl) 109 95-109 [facility]2015-10-09 22:53:19 Test Item Value Reference Range Interpretation Comments AGAP (test code = AGAP) 11.9 10.0-20.0 [facility]2015-10-09 22:53:19 Test Item Value Reference Range Interpretation Comments A/G Ratio (test code = A/G Ratio) 1.0 0.7-1.6 [place] 203065-10-09 22:53:19 Test Item Value Reference Range Interpretation Comments B/C Ratio (test code = B/C Ratio) 13 6-25 [facility]2015-10-09 22:53:19 Test Item Value Reference Range Interpretation Comments Globulin (test code = Globulin) 3.6 2.0-4.0 [facility]2015-10-09 22:53:19 Test Item Value Reference Range Interpretation Comments Magnesium Lvl (test code = Magnesium 1.8 1.8-2.4 Lvl) [facility]ownLktynugUKZHKMNAFW1352-37-91 22:53:19 Test Item Value Reference Range Interpretation Comments Segs (test code = Segs) 57.5 45.0-75.0 [facility] [facility]ownMxlgkcpGAQKUKQVVE0780-40-84 22:53:19 Test Item Value Reference Range Interpretation Comments Monocytes (test code = Monocytes) 7.6 2.0-12.0 [facility]ownAxftgthNFHDNGRGRD4143-81-74 22:53:19 Test Item Value Reference Range Interpretation Comments Basophils (test code = 1.0 See_Comment [Aut omated message] The Basophils) system which ge nerated this result tra nsmitted reference range : <=1.0. The reference r kat was not used to int erpret this result as normal/abnormal . [facility] UptownYluljyqDEJWRIQFLN0277-52-55 22:53:19 Test Item Value Reference Range Interpretation Comments Lymphocytes (test code = Lymphocytes) 32.9 20.0-40.0 [facility] UptownHtxhhhlXZDYWJGISO7520-97-69 22:53:19 Test Item Value Reference Range Interpretation Comments Eosinophils (test code = 1.0 See_Comment [A utomated message] The Eosinophils) system which ge nerated this result tra nsmitted reference range : <=4.0. The reference r kat was not used to int erpret this result as normal/abnormal . [facility] UptownCkgkguvUEZHNCOWNV3478-43-92 22:53:19 Test Item Value Reference Range Interpretation Comments Lymphocytes # (test code = Lymphocytes 3.8 1.0-5.5 #) [facility] UptownQvazedvJJAWJTCWKQ7309-64-21 22:53:19 Test Item Value Reference Range Interpretation Comments Segs-Bands # (test code = Segs-Bands #) 6.6 1.5-8.1 [place] 733975-10-09 22:53:19 Test Item Value Reference Range Interpretation Comments Eosinophils # (test code 0.1 See_Comment [A utomated message] The = Eosinophils #) system whic h generated this result tra nsmitted reference range : <=0.5. The reference r kat was not used to int erpret this result as normal/abnormal . [facility] UptownIdjbkqwARTEONWXAJ2560-51-82 22:53:19 Test Item Value Reference Range Interpretation Comments Monocytes # (test code 0.9 See_Comment [Aut omated message] The = Monocytes #) system which generated this result tra nsmitted reference range : <=0.8. The reference r kat was not used to int erpret this result as normal/abnormal . [facility] UptownAhnxkjrAOUVOCJKWA9083-22-41 22:53:19 Test Item Value Reference Range Interpretation Comments Microcyte (test code = 1+ *ABN*(06/07/15 Microcyte) 5:53 PM) [facility] UptownLqwqdjhMJELFDSVXN3980-99-52 22:53:19 Test Item Value Reference Range Interpretation Comments Basophils # (test code 0.1 See_Comment [Aut omated message] The = Basophils #) system which generated this result tra nsmitted reference range : <=0.2. The reference r kat was not used to int erpret this result as normal/abnormal . [facility] UptownPdcmbwmPNMNQXACLH0023-00-84 22:53:19 Test Item Value Reference Range Interpretation Comments RBC (test code = RBC) 5.23 4.20-5.40 [facility] UptownLapswzcGSNYRMGMEX1553-47-45 22:53:19 Test Item Value Reference Range Interpretation Comments Platelet (test code = Platelet) 241 133-450 [facility] UptownHznylihWUZQCHHSEL6383-09-14 22:53:19 Test Item Value Reference Range Interpretation Comments MPV (test code = MPV) 9.3 7.4-10.4 [facility] UptownPjsjcmgANOOPZIYHO7599-34-48 22:53:19 Test Item Value Reference Range Interpretation Comments RDW (test code = RDW) 16.5 11.5-14.5 [facility] UptownUvvobjwXBVJTZOKJP0752-02-44 22:53:19 Test Item Value Reference Range Interpretation Comments Hct (test code = Hct) 41.0 36.0-48.0 [facility] UptownCfmzycjLNMRPSFRXH4647-26-23 22:53:19 Test Item Value Reference Range Interpretation Comments Hgb (test code = Hgb) 12.7 12.0-16.0 [facility] UptownQlvqzegCATPFOWSYE4890-43-05 22:53:19 Test Item Value Reference Range Interpretation Comments WBC (test code = WBC) 11.5 3.7-10.4 [facility] UptownTgmkxswYMPXJCCYAV7820-39-44 22:53:19 Test Item Value Reference Range Interpretation Comments MCH (test code = MCH) 24.3 pg 27.0-31.0 [facility] UptownEkacnnrKDJNMANQLT4546-58-86 22:53:19 Test Item Value Reference Range Interpretation Comments MCHC (test code = MCHC) 31.0 32.0-36.0 [facility] UptownVxnolaqVEUTBANSLY5040-40-05 22:53:19 Test Item Value Reference Range Interpretation Comments MCV (test code = MCV) 78.4 80.0-98.0 [facility]2015-10-09 22:53:19 Test Item Value Reference Range Interpretation Comments FTI (test code = FTI) 2.5 [facility]2015-10-09 22:53:19 Test Item Value Reference Range Interpretation Comments TSH (test code = TSH) 1.540 0.360-3.740 [facility]2015-10-09 22:53:19 Test Item Value Reference Range Interpretation Comments T3 Uptake (test code = T3 Uptake) 31 31-39 [facility]2015-10-09 22:53:19 Test Item Value Reference Range Interpretation Comments T4 (test code = T4) 8.0 4.7-13.3 [facility]2015-10-09 22:53:19 Test Item Value Reference Range Interpretation Comments Transferrin (test code = Transferrin) 256 212-360 [facility]2015-10-09 22:53:19 Test Item Value Reference Range Interpretation Comments Vitamin B12 Lvl (test code = Vitamin [phone] B12 Lvl) [facility]2015-10-09 22:53:19 Test Item Value Reference Range Interpretation Comments eGFR (test code = eGFR) 70 [facility]2015-10-09 22:53:19 Test Item Value Reference Range Interpretation Comments Glucose Lvl (test code = Glucose Lvl) 103 70-99 [place] 203065-10-09 22:53:19 Test Item Value Reference Range Interpretation Comments Albumin Lvl (test code = Albumin Lvl) 3.6 3.5-5.0 [facility]2015-10-09 22:53:19 Test Item Value Reference Range Interpretation Comments CO2 (test code = CO2) 24 24-32 [facility]2015-10-09 22:53:19 Test Item Value Reference Range Interpretation Comments Total Protein (test code = Total 7.2 6.4-8.4 Protein) [facility]2015-10-09 22:53:19 Test Item Value Reference Range Interpretation Comments Creatinine Lvl (test code = Creatinine 1.1 0.5-1.4 Lvl) [facility]2015-10-09 22:53:19 Test Item Value Reference Range Interpretation Comments BUN (test code = BUN) 14 7-22 [facility]2015-10-09 22:53:19 Test Item Value Reference Range Interpretation Comments AST (test code = AST) 12 See_Comment [Auto mated message] The system which ge nerated this result transmit arvind reference range : <=37. The reference range was not used to interpr et this result as mario l/abnormal. [facility]2015-10-09 22:53:19 Test Item Value Reference Range Interpretation Comments ALT (test code = ALT) 41 See_Comment [Auto mated message] The system which ge nerated this result transmit arvind reference range : <=65. The reference range was not used to interpr et this result as mario l/abnormal. [facility]2015-10-09 22:53:19 Test Item Value Reference Range Interpretation Comments Alk Phos (test code = Alk Phos) 100 39-136 [facility]2015-10-09 22:53:19 Test Item Value Reference Range Interpretation Comments Bili Total (test code = Bili Total) 0.2 0.2-1.3 [facility]2015-10-09 22:53:19 Test Item Value Reference Range Interpretation Comments Potassium Lvl (test code = Potassium 3.9 3.5-5.1 Lvl) [facility]2015-10-09 22:53:19 Test Item Value Reference Range Interpretation Comments Sodium Lvl (test code = Sodium Lvl) 141 135-145 [facility]2015-10-09 22:53:19 Test Item Value Reference Range Interpretation Comments Calcium Lvl (test code = Calcium Lvl) 9.0 8.5-10.5 [facility]2015-10-09 22:53:19 Test Item Value Reference Range Interpretation Comments Chloride Lvl (test code = Chloride Lvl) 109 95-109 [facility]2015-10-09 22:53:19 Test Item Value Reference Range Interpretation Comments AGAP (test code = AGAP) 11.9 10.0-20.0 [facility]2015-10-09 22:53:19 Test Item Value Reference Range Interpretation Comments A/G Ratio (test code = A/G Ratio) 1.0 0.7-1.6 [facility]2015-10-09 22:53:19 Test Item Value Reference Range Interpretation Comments B/C Ratio (test code = B/C Ratio) 13 6-25 [facility]2015-10-09 22:53:19 Test Item Value Reference Range Interpretation Comments Globulin (test code = Globulin) 3.6 2.0-4.0 [facility]2015-10-09 22:53:19 Test Item Value Reference Range Interpretation Comments Magnesium Lvl (test code = Magnesium 1.8 1.8-2.4 Lvl) [facility] UptownDxtvuexHIXNBNFPGR0324-87-91 22:53:19 Test Item Value Reference Range Interpretation Comments Segs (test code = Segs) 57.5 45.0-75.0 [facility] UptownLvoprliDKQVOIRWPT4370-23-10 22:53:19 Test Item Value Reference Range Interpretation Comments Monocytes (test code = Monocytes) 7.6 2.0-12.0 [facility] UptownVmfrvelCORUCGRSYB3093-50-89 22:53:19 Test Item Value Reference Range Interpretation Comments Basophils (test code = 1.0 See_Comment [Aut omated message] The Basophils) system which ge nerated this result tra nsmitted reference range : <=1.0. The reference r kat was not used to int erpret this result as normal/abnormal . [facility] UptownZemgsikHMLWHXZQOL7456-12-63 22:53:19 Test Item Value Reference Range Interpretation Comments Lymphocytes (test code = Lymphocytes) 32.9 20.0-40.0 [facility] UptownFbxpfujRAYSJAQWGP5048-27-76 22:53:19 Test Item Value Reference Range Interpretation Comments Eosinophils (test code = 1.0 See_Comment [A utomated message] The Eosinophils) system which ge nerated this result tra nsmitted reference range : <=4.0. The reference r kat was not used to int erpret this result as normal/abnormal . [facility] UptownHatosodUURMQDAGMP9702-64-58 22:53:19 Test Item Value Reference Range Interpretation Comments Lymphocytes # (test code = Lymphocytes 3.8 1.0-5.5 #) [facility] UptownRuxbtqhAABJDTPCLK0159-16-53 22:53:19 Test Item Value Reference Range Interpretation Comments Segs-Bands # (test code = Segs-Bands #) 6.6 1.5-8.1 [facility] UptownHxodojfYNFABVOBRW1710-74-03 22:53:19 Test Item Value Reference Range Interpretation Comments Eosinophils # (test code 0.1 See_Comment [A utomated message] The = Eosinophils #) system [facility] generated this result tra nsmitted reference range : <=0.5. The reference r kat was not used to int erpret this result as normal/abnormal . [facility] UptownLbznhipAHZLOYMDIW7986-72-30 22:53:19 Test Item Value Reference Range Interpretation Comments Monocytes # (test code 0.9 See_Comment [Aut omated message] The = Monocytes #) system which generated this result tra nsmitted reference range : <=0.8. The reference r kat was not used to int erpret this result as normal/abnormal . [facility] UptownFdjjnyvDENVUQIKOP8478-56-95 22:53:19 Test Item Value Reference Range Interpretation Comments Microcyte (test code = 1+ *ABN*(06/07/15 Microcyte) 5:53 PM) [facility] UptownAbcqxkoXATRSFYOSX6925-04-80 22:53:19 Test Item Value Reference Range Interpretation Comments Basophils # (test code 0.1 See_Comment [Aut omated message] The = Basophils #) system which generated this result tra nsmitted reference range : <=0.2. The reference r kat was not used to int erpret this result as normal/abnormal . [facility] UptownRihljamPASRXZWZYO3231-97-42 22:53:19 Test Item Value Reference Range Interpretation Comments RBC (test code = RBC) 5.23 4.20-5.40 [facility] UptownKqbctzhLBXQETOUDD1717-24-88 22:53:19 Test Item Value Reference Range Interpretation Comments Platelet (test code = Platelet) 241 133-450 [facility] UptownAshuebqTQYCJMFPFH5008-95-57 22:53:19 Test Item Value Reference Range Interpretation Comments MPV (test code = MPV) 9.3 7.4-10.4 [facility] UptownWrgbvyiEUXWPDOLNU5438-93-40 22:53:19 Test Item Value Reference Range Interpretation Comments RDW (test code = RDW) 16.5 11.5-14.5 [facility] UptownHudwmwgTPLMBKRVOJ0826-39-07 22:53:19 Test Item Value Reference Range Interpretation Comments Hct (test code = Hct) 41.0 36.0-48.0 [facility] UptownEhdjwmcHROMPTOHCD5970-79-41 22:53:19 Test Item Value Reference Range Interpretation Comments Hgb (test code = Hgb) 12.7 12.0-16.0 [facility] UptownJphoaiuTGCOQTPAOV1772-52-14 22:53:19 Test Item Value Reference Range Interpretation Comments WBC (test code = WBC) 11.5 3.7-10.4 [facility] UptownVistgdwZOFDIKCBSJ7850-84-25 22:53:19 Test Item Value Reference Range Interpretation Comments MCH (test code = MCH) 24.3 pg 27.0-31.0 [facility] UptownCcdzceqELYMXKUIJJ9617-66-76 22:53:19 Test Item Value Reference Range Interpretation Comments MCHC (test code = MCHC) 31.0 32.0-36.0 [facility] UptownHqajplmZKCHBGGNNL3559-41-26 22:53:19 Test Item Value Reference Range Interpretation Comments MCV (test code = MCV) 78.4 80.0-98.0 [facility] DGILA0723-60-13 22:53:19 Test Item Value Reference Range Interpretation Comments FTI (test code = FTI) 2.5 [facility] VPEGK6232-70-13 22:53:19 Test Item Value Reference Range Interpretation Comments TSH (test code = TSH) 1.540 0.360-3.740 [facility] DIJIX2044-91-88 22:53:19 Test Item Value Reference Range Interpretation Comments T3 Uptake (test code = T3 Uptake) 31 31-39 [facility]annTHYPORT[facility]ITALQODHS2166-12-46 22:53:19 Test Item Value Reference Range Interpretation Comments T4 (test code = T4) 8.0 4.7-13.3 [facility]2015-10-09 22:53:19 Test Item Value Reference Range Interpretation Comments Transferrin (test code = Transferrin) 256 212-360 [facility]2015-10-09 22:53:19 Test Item Value Reference Range Interpretation Comments Vitamin B12 Lvl (test code = Vitamin [phone] B12 Lvl) [facility]2015-10-09 22:53:19 Test Item Value Reference Range Interpretation Comments eGFR (test code = eGFR) 70 [facility]2015-10-09 22:53:19 Test Item Value Reference Range Interpretation Comments Glucose Lvl (test code = Glucose Lvl) 103 70-99 [facility]2015-10-09 22:53:19 Test Item Value Reference Range Interpretation Comments Albumin Lvl (test code = Albumin Lvl) 3.6 3.5-5.0 [facility]2015-10-09 22:53:19 Test Item Value Reference Range Interpretation Comments CO2 (test code = CO2) 24 24-32 [facility]2015-10-09 22:53:19 Test Item Value Reference Range Interpretation Comments Total Protein (test code = Total 7.2 6.4-8.4 Protein) [facility]2015-10-09 22:53:19 Test Item Value Reference Range Interpretation Comments Creatinine Lvl (test code = Creatinine 1.1 0.5-1.4 Lvl) [facility]2015-10-09 22:53:19 Test Item Value Reference Range Interpretation Comments BUN (test code = BUN) 14 7-22 [place] 203065-10-09 22:53:19 Test Item Value Reference Range Interpretation Comments AST (test code = AST) 12 See_Comment [Auto mated message] The system which ge nerated this result transmit arvind reference range : <=37. The reference range was not used to interpr et this result as mario l/abnormal. [facility]2015-10-09 22:53:19 Test Item Value Reference Range Interpretation Comments ALT (test code = ALT) 41 See_Comment [Auto mated message] The system which ge nerated this result transmit arvind reference range : <=65. The reference range was not used to interpr et this result as mario l/abnormal. [facility]2015-10-09 22:53:19 Test Item Value Reference Range Interpretation Comments Alk Phos (test code = Alk Phos) 100 39-136 [facility]2015-10-09 22:53:19 Test Item Value Reference Range Interpretation Comments Bili Total (test code = Bili Total) 0.2 0.2-1.3 [facility]2015-10-09 22:53:19 Test Item Value Reference Range Interpretation Comments Potassium Lvl (test code = Potassium 3.9 3.5-5.1 Lvl) [facility]2015-10-09 22:53:19 Test Item Value Reference Range Interpretation Comments Sodium Lvl (test code = Sodium Lvl) 141 135-145 [facility]2015-10-09 22:53:19 Test Item Value Reference Range Interpretation Comments Calcium Lvl (test code = Calcium Lvl) 9.0 8.5-10.5 [facility]2015-10-09 22:53:19 Test Item Value Reference Range Interpretation Comments Chloride Lvl (test code = Chloride Lvl) 109 95-109 [facility]2015-10-09 22:53:19 Test Item Value Reference Range Interpretation Comments AGAP (test code = AGAP) 11.9 10.0-20.0 [facility]2015-10-09 22:53:19 Test Item Value Reference Range Interpretation Comments A/G Ratio (test code = A/G Ratio) 1.0 0.7-1.6 [facility]2015-10-09 22:53:19 Test Item Value Reference Range Interpretation Comments B/C Ratio (test code = B/C Ratio) 13 6-25 [facility]2015-10-09 22:53:19 Test Item Value Reference Range Interpretation Comments Globulin (test code = Globulin) 3.6 2.0-4.0 [facility]2015-10-09 22:53:19 Test Item Value Reference Range Interpretation Comments Magnesium Lvl (test code = Magnesium 1.8 1.8-2.4 Lvl) [facility] UptownAtfxoaxFSVOTQXRAL0391-58-03 22:53:19 Test Item Value Reference Range Interpretation Comments Segs (test code = Segs) 57.5 45.0-75.0 [facility] UptownCjamuewDSCYCCOROA9886-44-98 22:53:19 Test Item Value Reference Range Interpretation Comments Monocytes (test code = Monocytes) 7.6 2.0-12.0 [facility] UptownGwarinkRTGIOOKMKA5303-08-00 22:53:19 Test Item Value Reference Range Interpretation Comments Basophils (test code = 1.0 See_Comment [Aut omated message] The Basophils) system which ge nerated this result tra nsmitted reference range : <=1.0. The reference r kat was not used to int erpret this result as normal/abnormal . [facility] UptownUlbekyyNVJRCUKVWP9639-64-59 22:53:19 Test Item Value Reference Range Interpretation Comments Lymphocytes (test code = Lymphocytes) 32.9 20.0-40.0 [facility] UptownIplejsoPWMMAZYNRT1022-62-53 22:53:19 Test Item Value Reference Range Interpretation Comments Eosinophils (test code = 1.0 See_Comment [A utomated message] The Eosinophils) system which ge nerated this result tra nsmitted reference range : <=4.0. The reference r kat was not used to int erpret this result as normal/abnormal . [facility] UptownAefxabqLSSWMDFQPB2668-44-05 22:53:19 Test Item Value Reference Range Interpretation Comments Lymphocytes # (test code = Lymphocytes 3.8 1.0-5.5 #) [facility] UptownKftgngoENWSXNSRGL9904-80-87 22:53:19 Test Item Value Reference Range Interpretation Comments Segs-Bands # (test code = Segs-Bands #) 6.6 1.5-8.1 [facility] UptownEsjppsaUWLIDPPNRP3785-71-26 22:53:19 Test Item Value Reference Range Interpretation Comments Eosinophils # (test code 0.1 See_Comment [A utomated message] The = Eosinophils #) system whic h generated this result tra nsmitted reference range : <=0.5. The reference r kat was not used to int erpret this result as normal/abnormal . [facility] UptownXximadhUGPHFKDGHN3074-89-46 22:53:19 Test Item Value Reference Range Interpretation Comments Monocytes # (test code 0.9 See_Comment [Aut omated message] The = Monocytes #) system which generated this result tra nsmitted reference range : <=0.8. The reference r kat was not used to int erpret this result as normal/abnormal . [facility] UptownOsqbnxvQNUXRVYIUH8236-05-96 22:53:19 Test Item Value Reference Range Interpretation Comments Microcyte (test code = 1+ *ABN*(06/07/15 Microcyte) 5:53 PM) [facility] UptownLzbfwcbARATZTEGPM2656-86-50 22:53:19 Test Item Value Reference Range Interpretation Comments Basophils # (test code 0.1 See_Comment [Aut omated message] The = Basophils #) system which generated this result tra nsmitted reference range : <=0.2. The reference r kat was not used to int erpret this result as normal/abnormal . [facility] UptownPwyrnbqUUUIPXUGJQ7281-37-96 22:53:19 Test Item Value Reference Range Interpretation Comments RBC (test code = RBC) 5.23 4.20-5.40 [facility] UptownMkaulsbRDADGZVPLF3125-63-04 22:53:19 Test Item Value Reference Range Interpretation Comments Platelet (test code = Platelet) 241 133-450 [facility] UptownPlrecneVREAWCYXNM6469-44-49 22:53:19 Test Item Value Reference Range Interpretation Comments MPV (test code = MPV) 9.3 7.4-10.4 [facility] UptownCkiyzhbVPZONGSJEC4793-13-31 22:53:19 Test Item Value Reference Range Interpretation Comments RDW (test code = RDW) 16.5 11.5-14.5 [facility] UptownElzbqswDIJXLRUBID8651-58-14 22:53:19 Test Item Value Reference Range Interpretation Comments Hct (test code = Hct) 41.0 36.0-48.0 [facility] UptownPoqlgolOTDVACWHMC7516-92-12 22:53:19 Test Item Value Reference Range Interpretation Comments Hgb (test code = Hgb) 12.7 12.0-16.0 [facility] UptownXwxrgpcEPMRFMDYJR3296-34-08 22:53:19 Test Item Value Reference Range Interpretation Comments WBC (test code = WBC) 11.5 3.7-10.4 [facility] UptownZohzsvxWPPIFCYHHU0285-82-69 22:53:19 Test Item Value Reference Range Interpretation Comments MCH (test code = MCH) 24.3 pg 27.0-31.0 [facility] UptownVvqaazvQWCPZMJSMO3530-77-91 22:53:19 Test Item Value Reference Range Interpretation Comments MCHC (test code = MCHC) 31.0 32.0-36.0 [facility] CenterSwebyjlFLINMMSWPL7588-36-78 22:53:19 Test Item Value Reference Range Interpretation Comments MCV (test code = MCV) 78.4 80.0-98.0 [facility]2015-10-09 22:53:19 Test Item Value Reference Range Interpretation Comments FTI (test code = FTI) 2.5 [facility]2015-10-09 22:53:19 Test Item Value Reference Range Interpretation Comments TSH (test code = TSH) 1.540 0.360-3.740 [facility]2015-10-09 22:53:19 Test Item Value Reference Range Interpretation Comments T3 Uptake (test code = T3 Uptake) 31 31-39 [facility]2015-10-09 22:53:19 Test Item Value Reference Range Interpretation Comments T4 (test code = T4) 8.0 4.7-13.3 [facility]2015-10-09 22:53:19 Test Item Value Reference Range Interpretation Comments Transferrin (test code = Transferrin) 256 212-360 [facility]2015-10-09 22:53:19 Test Item Value Reference Range Interpretation Comments Vitamin B12 Lvl (test code = Vitamin [phone] B12 Lvl) [facility]2015-10-09 22:53:19 Test Item Value Reference Range Interpretation Comments eGFR (test code = eGFR) 70 [facility]2015-10-09 22:53:19 Test Item Value Reference Range Interpretation Comments Glucose Lvl (test code = Glucose Lvl) 103 70-99 [facility]2015-10-09 22:53:19 Test Item Value Reference Range Interpretation Comments Albumin Lvl (test code = Albumin Lvl) 3.6 3.5-5.0 [facility]2015-10-09 22:53:19 Test Item Value Reference Range Interpretation Comments CO2 (test code = CO2) 24 24-32 [facility]2015-10-09 22:53:19 Test Item Value Reference Range Interpretation Comments Total Protein (test code = Total 7.2 6.4-8.4 Protein) [facility]2015-10-09 22:53:19 Test Item Value Reference Range Interpretation Comments Creatinine Lvl (test code = Creatinine 1.1 0.5-1.4 Lvl) [facility]2015-10-09 22:53:19 Test Item Value Reference Range Interpretation Comments BUN (test code = BUN) 14 7-22 [facility]2015-10-09 22:53:19 Test Item Value Reference Range Interpretation Comments AST (test code = AST) 12 See_Comment [Auto mated message] The system which ge nerated this result transmit arvind reference range : <=37. The reference range was not used to interpr et this result as mario l/abnormal. [facility]2015-10-09 22:53:19 Test Item Value Reference Range Interpretation Comments ALT (test code = ALT) 41 See_Comment [Auto mated message] The system which ge nerated this result transmit arvind reference range : <=65. The reference range was not used to interpr et this result as mario l/abnormal. [facility]2015-10-09 22:53:19 Test Item Value Reference Range Interpretation Comments Alk Phos (test code = Alk Phos) 100 39-136 [facility]2015-10-09 22:53:19 Test Item Value Reference Range Interpretation Comments Bili Total (test code = Bili Total) 0.2 0.2-1.3 [facility]2015-10-09 22:53:19 Test Item Value Reference Range Interpretation Comments Potassium Lvl (test code = Potassium 3.9 3.5-5.1 Lvl) [facility]2015-10-09 22:53:19 Test Item Value Reference Range Interpretation Comments Sodium Lvl (test code = Sodium Lvl) 141 135-145 [facility]2015-10-09 22:53:19 Test Item Value Reference Range Interpretation Comments Calcium Lvl (test code = Calcium Lvl) 9.0 8.5-10.5 [facility]2015-10-09 22:53:19 Test Item Value Reference Range Interpretation Comments Chloride Lvl (test code = Chloride Lvl) 109 95-109 [facility]2015-10-09 22:53:19 Test Item Value Reference Range Interpretation Comments AGAP (test code = AGAP) 11.9 10.0-20.0 [facility]2015-10-09 22:53:19 Test Item Value Reference Range Interpretation Comments A/G Ratio (test code = A/G Ratio) 1.0 0.7-1.6 [facility]2015-10-09 22:53:19 Test Item Value Reference Range Interpretation Comments B/C Ratio (test code = B/C Ratio) 13 6-25 [facility]2015-10-09 22:53:19 Test Item Value Reference Range Interpretation Comments Globulin (test code = Globulin) 3.6 2.0-4.0 [facility]2015-10-09 22:53:19 Test Item Value Reference Range Interpretation Comments Magnesium Lvl (test code = Magnesium 1.8 1.8-2.4 Lvl) [facility]cdxljnSWHWPGNSIO4163[facility] 22:53:19 Test Item Value Reference Range Interpretation Comments Segs (test code = Segs) 57.5 45.0-75.0 [facility]ptownZbmcckdJZOFWMEJYQ2497-28-76 22:53:19 Test Item Value Reference Range Interpretation Comments Monocytes (test code = Monocytes) 7.6 2.0-12.0 [facility]ownHqghfirDHMELBAFDE8657-29-47 22:53:19 Test Item Value Reference Range Interpretation Comments Basophils (test code = 1.0 See_Comment [Aut omated message] The Basophils) system which ge nerated this result tra nsmitted reference range : <=1.0. The reference r kat was not used to int erpret this result as normal/abnormal . [facility]ptownBdqscvsLYGXJAOELF9746-30-05 22:53:19 Test Item Value Reference Range Interpretation Comments Lymphocytes (test code = Lymphocytes) 32.9 20.0-40.0 [facility]ownAerjnluDMJXXPOEWU2756-62-94 22:53:19 Test Item Value Reference Range Interpretation Comments Eosinophils (test code = 1.0 See_Comment [A utomated message] The Eosinophils) system which ge nerated this result tra nsmitted reference range : <=4.0. The reference r kat was not used to int erpret this result as normal/abnormal . [facility] UptownOptmfbaFPHLLVDMRA9580-61-23 22:53:19 Test Item Value Reference Range Interpretation Comments Lymphocytes # (test code = Lymphocytes 3.8 1.0-5.5 #) [facility] UptownAsrdlynIKXDKWEWSB8079-04-88 22:53:19 Test Item Value Reference Range Interpretation Comments Segs-Bands # (test code = Segs-Bands #) 6.6 1.5-8.1 [facility] UptownNdfjulwHQLWMSUZTM3279-94-22 22:53:19 Test Item Value Reference Range Interpretation Comments Eosinophils # (test code 0.1 See_Comment [A utomated message] The = Eosinophils #) system whic h generated this result tra nsmitted reference range : <=0.5. The reference r kat was not used to int erpret this result as normal/abnormal . [facility] UptownIamhhzlKWCDVMGAUW1582-03-06 22:53:19 Test Item Value Reference Range Interpretation Comments Monocytes # (test code 0.9 See_Comment [Aut omated message] The = Monocytes #) system which generated this result tra nsmitted reference range : <=0.8. The reference r kat was not used to int erpret this result as normal/abnormal . [facility] UptownKzcmfyaPOJSUKBGBY0458-66-05 22:53:19 Test Item Value Reference Range Interpretation Comments Microcyte (test code = 1+ *ABN*(06/07/15 Microcyte) 5:53 PM) [facility]ptownRbjgbnvQXIVDVGBFH5319-62-66 22:53:19 Test Item Value Reference Range Interpretation Comments Basophils # (test code 0.1 See_Comment [Aut omated message] The = Basophils #) system which generated this result tra nsmitted reference range : <=0.2. The reference r kat was not used to int erpret this result as normal/abnormal . [facility] UptownIeklnqwQJTYEZONAI9094-52-78 22:53:19 Test Item Value Reference Range Interpretation Comments RBC (test code = RBC) 5.23 4.20-5.40 [facility] UptownVqsuqccNVNTIWZQUW9621-80-85 22:53:19 Test Item Value Reference Range Interpretation Comments Platelet (test code = Platelet) 241 133-450 [facility] UptownVqkgrrsLEBCVTCCNY9216-64-80 22:53:19 Test Item Value Reference Range Interpretation Comments MPV (test code = MPV) 9.3 7.4-10.4 [facility] UptownNxndjteNZMQHHRSBF9718-01-12 22:53:19 Test Item Value Reference Range Interpretation Comments RDW (test code = RDW) 16.5 11.5-14.5 [facility] UptownYxrzeinMVQZEJHELW4918-77-36 22:53:19 Test Item Value Reference Range Interpretation Comments Hct (test code = Hct) 41.0 36.0-48.0 [facility] UptownEwqdshsTYCKZPDAYV7946-13-33 22:53:19 Test Item Value Reference Range Interpretation Comments Hgb (test code = Hgb) 12.7 12.0-16.0 [facility] UptownTtgkuanEGYXVETTJP8423-99-95 22:53:19 Test Item Value Reference Range Interpretation Comments WBC (test code = WBC) 11.5 3.7-10.4 [facility] UptownNoqgpgeYVIMISVPZN8609-52-19 22:53:19 Test Item Value Reference Range Interpretation Comments MCH (test code = MCH) 24.3 pg 27.0-31.0 [facility] UptownYmisfllHIFRDRSEQU9323-26-02 22:53:19 Test Item Value Reference Range Interpretation Comments MCHC (test code = MCHC) 31.0 32.0-36.0 [facility] UptownOwldyjaCTFRCXEKJY1558-73-08 22:53:19 Test Item Value Reference Range Interpretation Comments MCV (test code = MCV) 78.4 80.0-98.0 [facility]2015-10-09 22:53:19 Test Item Value Reference Range Interpretation Comments FTI (test code = FTI) 2.5 [facility]2015-10-09 22:53:19 Test Item Value Reference Range Interpretation Comments TSH (test code = TSH) 1.540 0.360-3.740 [facility]2015-10-09 22:53:19 Test Item Value Reference Range Interpretation Comments T3 Uptake (test code = T3 Uptake) 31 31-39 [facility]2015-10-09 22:53:19 Test Item Value Reference Range Interpretation Comments T4 (test code = T4) 8.0 4.7-13.3 [facility]2015-10-09 22:53:19 Test Item Value Reference Range Interpretation Comments Transferrin (test code = Transferrin) 256 212-360 [facility]2015-10-09 22:53:19 Test Item Value Reference Range Interpretation Comments Vitamin B12 Lvl (test code = Vitamin 971 150-1075 B12 Lvl) [facility]2015-10-09 22:53:19 Test Item Value Reference Range Interpretation Comments eGFR (test code = eGFR) 70 [facility]2015-10-09 22:53:19 Test Item Value Reference Range Interpretation Comments Glucose Lvl (test code = Glucose Lvl) 103 70-99 [facility]2015-10-09 22:53:19 Test Item Value Reference Range Interpretation Comments Albumin Lvl (test code = Albumin Lvl) 3.6 3.5-5.0 [facility]2015-10-09 22:53:19 Test Item Value Reference Range Interpretation Comments CO2 (test code = CO2) 24 24-32 [facility]2015-10-09 22:53:19 Test Item Value Reference Range Interpretation Comments Total Protein (test code = Total 7.2 6.4-8.4 Protein) [facility]2015-10-09 22:53:19 Test Item Value Reference Range Interpretation Comments Creatinine Lvl (test code = Creatinine 1.1 0.5-1.4 Lvl) [facility]2015-10-09 22:53:19 Test Item Value Reference Range Interpretation Comments BUN (test code = BUN) 14 7-22 [place] 203065-10-09 22:53:19 Test Item Value Reference Range Interpretation Comments AST (test code = AST) 12 See_Comment [Auto mated message] The system which ge nerated this result transmit arvind reference range : <=37. The reference range was not used to interpr et this result as mario l/abnormal. [facility]2015-10-09 22:53:19 Test Item Value Reference Range Interpretation Comments ALT (test code = ALT) 41 See_Comment [Auto mated message] The system which ge nerated this result transmit arvind reference range : <=65. The reference range was not used to interpr et this result as mario l/abnormal. [facility]2015-10-09 22:53:19 Test Item Value Reference Range Interpretation Comments Alk Phos (test code = Alk Phos) 100 39-136 [facility]2015-10-09 22:53:19 Test Item Value Reference Range Interpretation Comments Bili Total (test code = Bili Total) 0.2 0.2-1.3 [facility]2015-10-09 22:53:19 Test Item Value Reference Range Interpretation Comments Potassium Lvl (test code = Potassium 3.9 3.5-5.1 Lvl) [facility]2015-10-09 22:53:19 Test Item Value Reference Range Interpretation Comments Sodium Lvl (test code = Sodium Lvl) 141 135-145 [facility]2015-10-09 22:53:19 Test Item Value Reference Range Interpretation Comments Calcium Lvl (test code = Calcium Lvl) 9.0 8.5-10.5 [facility]2015-10-09 22:53:19 Test Item Value Reference Range Interpretation Comments Chloride Lvl (test code = Chloride Lvl) 109 95-109 [facility]2015-10-09 22:53:19 Test Item Value Reference Range Interpretation Comments AGAP (test code = AGAP) 11.9 10.0-20.0 [facility]2015-10-09 22:53:19 Test Item Value Reference Range Interpretation Comments A/G Ratio (test code = A/G Ratio) 1.0 0.7-1.6 [facility]2015-10-09 22:53:19 Test Item Value Reference Range Interpretation Comments B/C Ratio (test code = B/C Ratio) 13 6-25 [facility]2015-10-09 22:53:19 Test Item Value Reference Range Interpretation Comments Globulin (test code = Globulin) 3.6 2.0-4.0 [facility]2015-10-09 22:53:19 Test Item Value Reference Range Interpretation Comments Magnesium Lvl (test code = Magnesium 1.8 1.8-2.4 Lvl) [facility]ptownTeiefkwCBXLWAMLIU1784-51-54 22:53:19 Test Item Value Reference Range Interpretation Comments Segs (test code = Segs) 57.5 45.0-75.0 [facility] UptownCrsryteZYBGORUNJV6114-72-08 22:53:19 Test Item Value Reference Range Interpretation Comments Monocytes (test code = Monocytes) 7.6 2.0-12.0 [facility] UptownDtzgspaRZPCFIWQRL9069-82-84 22:53:19 Test Item Value Reference Range Interpretation Comments Basophils (test code = 1.0 See_Comment [Aut omated message] The Basophils) system which ge nerated this result tra nsmitted reference range : <=1.0. The reference r kat was not used to int erpret this result as normal/abnormal . [facility] UptownDyudsvaWJKLGGAAAK8760-02-98 22:53:19 Test Item Value Reference Range Interpretation Comments Lymphocytes (test code = Lymphocytes) 32.9 20.0-40.0 [facility] UptownArowkkuHYXRUVHONV0787-83-46 22:53:19 Test Item Value Reference Range Interpretation Comments Eosinophils (test code = 1.0 See_Comment [A utomated message] The Eosinophils) system which ge nerated this result tra nsmitted reference range : <=4.0. The reference r kat was not used to int erpret this result as normal/abnormal . [facility] UptownEtwgptmBXYTYFYSEN7766-84-25 22:53:19 Test Item Value Reference Range Interpretation Comments Lymphocytes # (test code = Lymphocytes 3.8 1.0-5.5 #) [facility] UptownUxrxxzaPNRFWEWLQT8606-99-70 22:53:19 Test Item Value Reference Range Interpretation Comments Segs-Bands # (test code = Segs-Bands #) 6.6 1.5-8.1 [facility] UptownRysfrruMTNYNYKVKH0910-20-30 22:53:19 Test Item Value Reference Range Interpretation Comments Eosinophils # (test code 0.1 See_Comment [A utomated message] The = Eosinophils #) system whic h generated this result tra nsmitted reference range : <=0.5. The reference r kat was not used to int erpret this result as normal/abnormal . [facility] UptownRqqqintMBMNDRYCEW6807-41-95 22:53:19 Test Item Value Reference Range Interpretation Comments Monocytes # (test code 0.9 See_Comment [Aut omated message] The = Monocytes #) system which generated this result tra nsmitted reference range : <=0.8. The reference r kat was not used to int erpret this result as normal/abnormal . [facility] UptownMpvtxskUPLCPDAUGG5835-35-83 22:53:19 Test Item Value Reference Range Interpretation Comments Microcyte (test code = 1+ *ABN*(06/07/15 Microcyte) 5:53 PM) [facility] UptownFdcikrkTLFGEFHCFD4885-72-97 22:53:19 Test Item Value Reference Range Interpretation Comments Basophils # (test code 0.1 See_Comment [Aut omated message] The = Basophils #) system which generated this result tra nsmitted reference range : <=0.2. The reference r kat was not used to int erpret this result as normal/abnormal . [facility] UptownMxjghftAGRXBDPYGF8118-28-78 22:53:19 Test Item Value Reference Range Interpretation Comments RBC (test code = RBC) 5.23 4.20-5.40 [facility] UptownBfffjxoBSQCFNBIVD4663-33-32 22:53:19 Test Item Value Reference Range Interpretation Comments Platelet (test code = Platelet) 241 133-450 [facility] UptownIsuzvsoDZOYKAHGAZ5383-01-01 22:53:19 Test Item Value Reference Range Interpretation Comments MPV (test code = MPV) 9.3 7.4-10.4 [facility] UptownEycyqfpKKAHFVKXSX5422-58-07 22:53:19 Test Item Value Reference Range Interpretation Comments RDW (test code = RDW) 16.5 11.5-14.5 [facility] UptownWceacztLZRSVXCHVE2168-27-70 22:53:19 Test Item Value Reference Range Interpretation Comments Hct (test code = Hct) 41.0 36.0-48.0 [facility] UptownHasqbkbCLQZJPXGIW8189-33-19 22:53:19 Test Item Value Reference Range Interpretation Comments Hgb (test code = Hgb) 12.7 12.0-16.0 [facility] UptownBufjfaeLRLYBGDKYN7567-51-29 22:53:19 Test Item Value Reference Range Interpretation Comments WBC (test code = WBC) 11.5 3.7-10.4 [facility] UptownAabgmntZIBXDOZNIG0239-14-87 22:53:19 Test Item Value Reference Range Interpretation Comments MCH (test code = MCH) 24.3 pg 27.0-31.0 [facility] UptownIpydntcAUGTXQGIPC9964-55-04 22:53:19 Test Item Value Reference Range Interpretation Comments MCHC (test code = MCHC) 31.0 32.0-36.0 [facility] UptownGzceydmABEUAVAGVY1019-55-57 22:53:19 Test Item Value Reference Range Interpretation Comments MCV (test code = MCV) 78.4 80.0-98.0 [facility] JDQYS1526-95-15 22:53:19 Test Item Value Reference Range Interpretation Comments FTI (test code = FTI) 2.5 [facility]TH[facility] OOGUK2780-86-93 22:53:19 Test Item Value Reference Range Interpretation Comments TSH (test code = TSH) 1.540 0.360-3.740 [facility]2015-10-09 22:53:19 Test Item Value Reference Range Interpretation Comments T3 Uptake (test code = T3 Uptake) 31 31-39 [facility]2015-10-09 22:53:19 Test Item Value Reference Range Interpretation Comments T4 (test code = T4) 8.0 4.7-13.3 [facility]2015-10-09 22:53:19 Test Item Value Reference Range Interpretation Comments Transferrin (test code = Transferrin) 256 212-360 [facility]2015-10-09 22:53:19 Test Item Value Reference Range Interpretation Comments Vitamin B12 Lvl (test code = Vitamin 280 577-1363 B12 Lvl) [facility]2015-10-09 22:53:19 Test Item Value Reference Range Interpretation Comments eGFR (test code = eGFR) 70 [facility]2015-10-09 22:53:19 Test Item Value Reference Range Interpretation Comments Glucose Lvl (test code = Glucose Lvl) 103 70-99 [facility]2015-10-09 22:53:19 Test Item Value Reference Range Interpretation Comments Albumin Lvl (test code = Albumin Lvl) 3.6 3.5-5.0 [facility]2015-10-09 22:53:19 Test Item Value Reference Range Interpretation Comments CO2 (test code = CO2) 24 24-32 [facility]2015-10-09 22:53:19 Test Item Value Reference Range Interpretation Comments Total Protein (test code = Total 7.2 6.4-8.4 Protein) [facility]2015-10-09 22:53:19 Test Item Value Reference Range Interpretation Comments Creatinine Lvl (test code = Creatinine 1.1 0.5-1.4 Lvl) [facility]2015-10-09 22:53:19 Test Item Value Reference Range Interpretation Comments BUN (test code = BUN) 14 7-22 [facility]2015-10-09 22:53:19 Test Item Value Reference Range Interpretation Comments AST (test code = AST) 12 See_Comment [Auto mated message] The system which ge nerated this result transmit arvind reference range : <=37. The reference range was not used to interpr et this result as mario l/abnormal. [facility]2015-10-09 22:53:19 Test Item Value Reference Range Interpretation Comments ALT (test code = ALT) 41 See_Comment [Auto mated message] The system which ge nerated this result transmit arvind reference range : <=65. The reference range was not used to interpr et this result as mario l/abnormal. [facility]2015-10-09 22:53:19 Test Item Value Reference Range Interpretation Comments Alk Phos (test code = Alk Phos) 100 39-136 [facility]2015-10-09 22:53:19 Test Item Value Reference Range Interpretation Comments Bili Total (test code = Bili Total) 0.2 0.2-1.3 [facility]2015-10-09 22:53:19 Test Item Value Reference Range Interpretation Comments Potassium Lvl (test code = Potassium 3.9 3.5-5.1 Lvl) [facility]2015-10-09 22:53:19 Test Item Value Reference Range Interpretation Comments Sodium Lvl (test code = Sodium Lvl) 141 135-145 [facility]2015-10-09 22:53:19 Test Item Value Reference Range Interpretation Comments Calcium Lvl (test code = Calcium Lvl) 9.0 8.5-10.5 [facility]2015-10-09 22:53:19 Test Item Value Reference Range Interpretation Comments Chloride Lvl (test code = Chloride Lvl) 109 95-109 [facility]2015-10-09 22:53:19 Test Item Value Reference Range Interpretation Comments AGAP (test code = AGAP) 11.9 10.0-20.0 [facility]2015-10-09 22:53:19 Test Item Value Reference Range Interpretation Comments A/G Ratio (test code = A/G Ratio) 1.0 0.7-1.6 [facility]2015-10-09 22:53:19 Test Item Value Reference Range Interpretation Comments B/C Ratio (test code = B/C Ratio) 13 6-25 [facility]2015-10-09 22:53:19 Test Item Value Reference Range Interpretation Comments Globulin (test code = Globulin) 3.6 2.0-4.0 [facility] CenterGeoDigital [id number] 22:53:19 Test Item Value Reference Range Interpretation Comments Magnesium Lvl (test code = Magnesium 1.8 1.8-2.4 Lvl) [facility] UptownZupvpqxJIMWWUXSMK3500-19-17 22:53:19 Test Item Value Reference Range Interpretation Comments Segs (test code = Segs) 57.5 45.0-75.0 [facility] UptownXddgjwwNRSKRQDICL7040-25-24 22:53:19 Test Item Value Reference Range Interpretation Comments Monocytes (test code = Monocytes) 7.6 2.0-12.0 [facility] UptownToqvwgfLNSEJVDOIP5198-70-28 22:53:19 Test Item Value Reference Range Interpretation Comments Basophils (test code = 1.0 See_Comment [Aut omated message] The Basophils) system which ge nerated this result tra nsmitted reference range : <=1.0. The reference r kat was not used to int erpret this result as normal/abnormal . [facility] UptownNhcfehrMZAAGLWYHM7620-84-15 22:53:19 Test Item Value Reference Range Interpretation Comments Lymphocytes (test code = Lymphocytes) 32.9 20.0-40.0 [facility] UptownKowspvpXJXSZPIIXT1218-97-60 22:53:19 Test Item Value Reference Range Interpretation Comments Eosinophils (test code = 1.0 See_Comment [A utomated message] The Eosinophils) system which ge nerated this result tra nsmitted reference range : <=4.0. The reference r kat was not used to int erpret this result as normal/abnormal . [facility]ownRxecoinSVQCNMBKKV8526-68-17 22:53:19 Test Item Value Reference Range Interpretation Comments Lymphocytes # (test code = Lymphocytes 3.8 1.0-5.5 #) [facility]ptownKmiupzxJYWWCUDWLD9792-78-85 22:53:19 Test Item Value Reference Range Interpretation Comments Segs-Bands # (test code = Segs-Bands #) 6.6 1.5-8.1 [facility]ptownJgpurlmSXKGZTHMKT2970-50-89 22:53:19 Test Item Value Reference Range Interpretation Comments Eosinophils # (test code 0.1 See_Comment [A utomated message] The = Eosinophils #) system whic h generated this result tra nsmitted reference range : <=0.5. The reference r kat was not used to int erpret this result as normal/abnormal . [facility]ownCjdcebqJKIPBMHDQO5500-78-91 22:53:19 Test Item Value Reference Range Interpretation Comments Monocytes # (test code 0.9 See_Comment [Aut omated message] The = Monocytes #) system which generated this result tra nsmitted reference range : <=0.8. The reference r kat was not used to int erpret this result as normal/abnormal . [facility]ownHsyctkxWWDUCMXZXZ7826-41-97 22:53:19 Test Item Value Reference Range Interpretation Comments Microcyte (test code = 1+ *ABN*(06/07/15 Microcyte) 5:53 PM) [facility]ptownEydewclIDGJJCAZXG7468-90-33 22:53:19 Test Item Value Reference Range Interpretation Comments Basophils # (test code 0.1 See_Comment [Aut omated message] The = Basophils #) system which generated this result tra nsmitted reference range : <=0.2. The reference r kat was not used to int erpret this result as normal/abnormal . [facility] UptownHykixudGLEAZLQFUU2171-32-18 22:53:19 Test Item Value Reference Range Interpretation Comments RBC (test code = RBC) 5.23 4.20-5.40 [facility] UptownRlmqautYRFJALKQPU5771-06-86 22:53:19 Test Item Value Reference Range Interpretation Comments Platelet (test code = Platelet) 241 133-450 [facility] UptownZywismwKVPZYJLRNB0912-20-07 22:53:19 Test Item Value Reference Range Interpretation Comments MPV (test code = MPV) 9.3 7.4-10.4 [facility] UptownQwrtcycVOFAQRNDYA6721-23-92 22:53:19 Test Item Value Reference Range Interpretation Comments RDW (test code = RDW) 16.5 11.5-14.5 [facility] UptownPouthcaZLGWGTPXKF2491-23-51 22:53:19 Test Item Value Reference Range Interpretation Comments Hct (test code = Hct) 41.0 36.0-48.0 [facility]ptownJxhqxgvEEOWBNVOGC3911-23-51 22:53:19 Test Item Value Reference Range Interpretation Comments Hgb (test code = Hgb) 12.7 12.0-16.0 [facility]ptownSixdfkxQPJSTIEQOX5325-05-66 22:53:19 Test Item Value Reference Range Interpretation Comments WBC (test code = WBC) 11.5 3.7-10.4 [facility] UptownUfxaqtsKRRIRWNXYH6512-00-43 22:53:19 Test Item Value Reference Range Interpretation Comments MCH (test code = MCH) 24.3 pg 27.0-31.0 [facility] UptownOfdrqvuACMHIZIQKZ5936-12-44 22:53:19 Test Item Value Reference Range Interpretation Comments MCHC (test code = MCHC) 31.0 32.0-36.0 [facility] UptownRpfgoniOMMSKSHTPF8864-33-15 22:53:19 Test Item Value Reference Range Interpretation Comments MCV (test code = MCV) 78.4 80.0-98.0 [facility]2015-10-09 22:53:19 Test Item Value Reference Range Interpretation Comments FTI (test code = FTI) 2.5 [facility]2015-10-09 22:53:19 Test Item Value Reference Range Interpretation Comments TSH (test code = TSH) 1.540 0.360-3.740 [facility]2015-10-09 22:53:19 Test Item Value Reference Range Interpretation Comments T3 Uptake (test code = T3 Uptake) 31 31-39 [facility]2015-10-09 22:53:19 Test Item Value Reference Range Interpretation Comments T4 (test code = T4) 8.0 4.7-13.3 [facility]2015-10-09 22:53:19 Test Item Value Reference Range Interpretation Comments Transferrin (test code = Transferrin) 256 212-360 [facility]2015-10-09 22:53:19 Test Item Value Reference Range Interpretation Comments Vitamin B12 Lvl (test code = Vitamin [phone] B12 Lvl) [facility]2015-10-09 22:53:19 Test Item Value Reference Range Interpretation Comments eGFR (test code = eGFR) 70 [facility]2015-10-09 22:53:19 Test Item Value Reference Range Interpretation Comments Glucose Lvl (test code = Glucose Lvl) 103 70-99 [facility]2015-10-09 22:53:19 Test Item Value Reference Range Interpretation Comments Albumin Lvl (test code = Albumin Lvl) 3.6 3.5-5.0 [facility]2015-10-09 22:53:19 Test Item Value Reference Range Interpretation Comments CO2 (test code = CO2) 24 24-32 [facility]2015-10-09 22:53:19 Test Item Value Reference Range Interpretation Comments Total Protein (test code = Total 7.2 6.4-8.4 Protein) [facility]2015-10-09 22:53:19 Test Item Value Reference Range Interpretation Comments Creatinine Lvl (test code = Creatinine 1.1 0.5-1.4 Lvl) [facility]2015-10-09 22:53:19 Test Item Value Reference Range Interpretation Comments BUN (test code = BUN) 14 7-22 [facility]2015-10-09 22:53:19 Test Item Value Reference Range Interpretation Comments AST (test code = AST) 12 See_Comment [Auto mated message] The system which ge nerated this result transmit arvind reference range : <=37. The reference range was not used to interpr et this result as mario l/abnormal. [facility]2015-10-09 22:53:19 Test Item Value Reference Range Interpretation Comments ALT (test code = ALT) 41 See_Comment [Auto mated message] The system which ge nerated this result transmit arvind reference range : <=65. The reference range was not used to interpr et this result as mario l/abnormal. [facility]2015-10-09 22:53:19 Test Item Value Reference Range Interpretation Comments Alk Phos (test code = Alk Phos) 100 39-136 [facility]2015-10-09 22:53:19 Test Item Value Reference Range Interpretation Comments Bili Total (test code = Bili Total) 0.2 0.2-1.3 [facility]2015-10-09 22:53:19 Test Item Value Reference Range Interpretation Comments Potassium Lvl (test code = Potassium 3.9 3.5-5.1 Lvl) [facility]2015-10-09 22:53:19 Test Item Value Reference Range Interpretation Comments Sodium Lvl (test code = Sodium Lvl) 141 135-145 [facility]2015-10-09 22:53:19 Test Item Value Reference Range Interpretation Comments Calcium Lvl (test code = Calcium Lvl) 9.0 8.5-10.5 [facility]2015-10-09 22:53:19 Test Item Value Reference Range Interpretation Comments Chloride Lvl (test code = Chloride Lvl) 109 95-109 [facility]2015-10-09 22:53:19 Test Item Value Reference Range Interpretation Comments AGAP (test code = AGAP) 11.9 10.0-20.0 [facility]2015-10-09 22:53:19 Test Item Value Reference Range Interpretation Comments A/G Ratio (test code = A/G Ratio) 1.0 0.7-1.6 [facility]2015-10-09 22:53:19 Test Item Value Reference Range Interpretation Comments B/C Ratio (test code = B/C Ratio) 13 6-25 [facility]2015-10-09 22:53:19 Test Item Value Reference Range Interpretation Comments Globulin (test code = Globulin) 3.6 2.0-4.0 [facility]2015-10-09 22:53:19 Test Item Value Reference Range Interpretation Comments Magnesium Lvl (test code = Magnesium 1.8 1.8-2.4 Lvl) [facility] UptownBymadaqPEXYCSJBIG4825-06-97 22:53:19 Test Item Value Reference Range Interpretation Comments Segs (test code = Segs) 57.5 45.0-75.0 [facility] UptownDgppfujTIVAEIOONT9923-73-48 22:53:19 Test Item Value Reference Range Interpretation Comments Monocytes (test code = Monocytes) 7.6 2.0-12.0 [facility] UptownAupmkrpSVHBTVCEKY2046-80-40 22:53:19 Test Item Value Reference Range Interpretation Comments Basophils (test code = 1.0 See_Comment [Aut omated message] The Basophils) system which ge nerated this result tra nsmitted reference range : <=1.0. The reference r kat was not used to int erpret this result as normal/abnormal . [facility] UptownMpujxhdJOBLMRPABQ2249-41-83 22:53:19 Test Item Value Reference Range Interpretation Comments Lymphocytes (test code = Lymphocytes) 32.9 20.0-40.0 [facility] UptownIofnvedAVTCINRLXJ5869-87-49 22:53:19 Test Item Value Reference Range Interpretation Comments Eosinophils (test code = 1.0 See_Comment [A utomated message] The Eosinophils) system which ge nerated this result tra nsmitted reference range : <=4.0. The reference r kat was not used to int erpret this result as normal/abnormal . [facility] UptownKqslpfdUGWQZJJNLD8917-36-81 22:53:19 Test Item Value Reference Range Interpretation Comments Lymphocytes # (test code = Lymphocytes 3.8 1.0-5.5 #) [facility] UptownLezcnlwGEBNDHEBRO2695-66-77 22:53:19 Test Item Value Reference Range Interpretation Comments Segs-Bands # (test code = Segs-Bands #) 6.6 1.5-8.1 [facility] UptownZfcxqneCRGDHDJSKG2108-20-56 22:53:19 Test Item Value Reference Range Interpretation Comments Eosinophils # (test code 0.1 See_Comment [A utomated message] The = Eosinophils #) system whic h generated this result tra nsmitted reference range : <=0.5. The reference r kat was not used to int erpret this result as normal/abnormal . [facility]ownQpxtdykWJPHABUXNQ0648-70-44 22:53:19 Test Item Value Reference Range Interpretation Comments Monocytes # (test code 0.9 See_Comment [Aut omated message] The = Monocytes #) system which generated this result tra nsmitted reference range : <=0.8. The reference r kat was not used to int erpret this result as normal/abnormal . [facility] UptownYcrovwmOBMTZROYGF4683-29-57 22:53:19 Test Item Value Reference Range Interpretation Comments Microcyte (test code = 1+ *ABN*(06/07/15 Microcyte) 5:53 PM) [facility]ptownHwrjkasAZGBRRKSRN5833-02-38 22:53:19 Test Item Value Reference Range Interpretation Comments Basophils # (test code 0.1 See_Comment [Aut omated message] The = Basophils #) system which generated this result tra nsmitted reference range : <=0.2. The reference r kat was not used to int erpret this result as normal/abnormal . [facility]ownQmgtvltKODDIBVOXA0686-88-62 22:53:19 Test Item Value Reference Range Interpretation Comments RBC (test code = RBC) 5.23 4.20-5.40 [facility] UptownRmovwqyHXAIXXUPWD8894-30-85 22:53:19 Test Item Value Reference Range Interpretation Comments Platelet (test code = Platelet) 241 133-450 [facility] UptownDntvfiuLIIAWNZLJG1972-68-14 22:53:19 Test Item Value Reference Range Interpretation Comments MPV (test code = MPV) 9.3 7.4-10.4 [facility] UptownOyxksvmCNBFGVAGCM8709-69-17 22:53:19 Test Item Value Reference Range Interpretation Comments RDW (test code = RDW) 16.5 11.5-14.5 [facility] UptownAkpjpasRLTYNDDUUY1771-55-74 22:53:19 Test Item Value Reference Range Interpretation Comments Hct (test code = Hct) 41.0 36.0-48.0 [facility] UptownQbshwxhLWISYVTROX6523-30-67 22:53:19 Test Item Value Reference Range Interpretation Comments Hgb (test code = Hgb) 12.7 12.0-16.0 [facility] UptownBwbpcqkKOBUZJSMRC8089-45-08 22:53:19 Test Item Value Reference Range Interpretation Comments WBC (test code = WBC) 11.5 3.7-10.4 [facility] UptownJqqioseWGWPLNHZMX0117-27-89 22:53:19 Test Item Value Reference Range Interpretation Comments MCH (test code = MCH) 24.3 pg 27.0-31.0 [facility] UptownKjervdyCCPTMSXQQE3317-00-23 22:53:19 Test Item Value Reference Range Interpretation Comments MCHC (test code = MCHC) 31.0 32.0-36.0 [facility] UptownQxdzezaFUJFMNCWWJ5925-97-46 22:53:19 Test Item Value Reference Range Interpretation Comments MCV (test code = MCV) 78.4 80.0-98.0 [facility]2015-10-09 22:53:19 Test Item Value Reference Range Interpretation Comments FTI (test code = FTI) 2.5 [facility]2015-10-09 22:53:19 Test Item Value Reference Range Interpretation Comments TSH (test code = TSH) 1.540 0.360-3.740 [facility]2015-10-09 22:53:19 Test Item Value Reference Range Interpretation Comments T3 Uptake (test code = T3 Uptake) 31 31-39 [facility]2015-10-09 22:53:19 Test Item Value Reference Range Interpretation Comments T4 (test code = T4) 8.0 4.7-13.3 [facility]2015-10-09 22:53:19 Test Item Value Reference Range Interpretation Comments Transferrin (test code = Transferrin) 256 212-360 [facility]2015-10-09 22:53:19 Test Item Value Reference Range Interpretation Comments Vitamin B12 Lvl (test code = Vitamin [phone] B12 Lvl) [facility]2015-10-09 22:53:19 Test Item Value Reference Range Interpretation Comments eGFR (test code = eGFR) 70 [facility]2015-10-09 22:53:19 Test Item Value Reference Range Interpretation Comments Glucose Lvl (test code = Glucose Lvl) 103 70-99 [facility]2015-10-09 22:53:19 Test Item Value Reference Range Interpretation Comments Albumin Lvl (test code = Albumin Lvl) 3.6 3.5-5.0 [facility]2015-10-09 22:53:19 Test Item Value Reference Range Interpretation Comments CO2 (test code = CO2) 24 24-32 [facility]2015-10-09 22:53:19 Test Item Value Reference Range Interpretation Comments Total Protein (test code = Total 7.2 6.4-8.4 Protein) [facility]2015-10-09 22:53:19 Test Item Value Reference Range Interpretation Comments Creatinine Lvl (test code = Creatinine 1.1 0.5-1.4 Lvl) [facility]2015-10-09 22:53:19 Test Item Value Reference Range Interpretation Comments BUN (test code = BUN) 14 7-22 [facility]2015-10-09 22:53:19 Test Item Value Reference Range Interpretation Comments AST (test code = AST) 12 See_Comment [Auto mated message] The system which ge nerated this result transmit arvind reference range : <=37. The reference range was not used to interpr et this result as mario l/abnormal. [facility]2015-10-09 22:53:19 Test Item Value Reference Range Interpretation Comments ALT (test code = ALT) 41 See_Comment [Auto mated message] The system which ge nerated this result transmit arvind reference range : <=65. The reference range was not used to interpr et this result as mario l/abnormal. [facility]2015-10-09 22:53:19 Test Item Value Reference Range Interpretation Comments Alk Phos (test code = Alk Phos) 100 39-136 [facility]2015-10-09 22:53:19 Test Item Value Reference Range Interpretation Comments Bili Total (test code = Bili Total) 0.2 0.2-1.3 [facility]2015-10-09 22:53:19 Test Item Value Reference Range Interpretation Comments Potassium Lvl (test code = Potassium 3.9 3.5-5.1 Lvl) [facility]2015-10-09 22:53:19 Test Item Value Reference Range Interpretation Comments Sodium Lvl (test code = Sodium Lvl) 141 135-145 [facility]2015-10-09 22:53:19 Test Item Value Reference Range Interpretation Comments Calcium Lvl (test code = Calcium Lvl) 9.0 8.5-10.5 [facility]2015-10-09 22:53:19 Test Item Value Reference Range Interpretation Comments Chloride Lvl (test code = Chloride Lvl) 109 95-109 [facility]2015-10-09 22:53:19 Test Item Value Reference Range Interpretation Comments AGAP (test code = AGAP) 11.9 10.0-20.0 [facility]2015-10-09 22:53:19 Test Item Value Reference Range Interpretation Comments A/G Ratio (test code = A/G Ratio) 1.0 0.7-1.6 [facility]2015-10-09 22:53:19 Test Item Value Reference Range Interpretation Comments B/C Ratio (test code = B/C Ratio) 13 6-25 [facility]2015-10-09 22:53:19 Test Item Value Reference Range Interpretation Comments Globulin (test code = Globulin) 3.6 2.0-4.0 [facility]2015-10-09 22:53:19 Test Item Value Reference Range Interpretation Comments Transferrin (test code = Transferrin) 256 212-360 [facility]2015-10-09 22:53:19 Test Item Value Reference Range Interpretation Comments Vitamin B12 Lvl (test code = Vitamin [phone] B12 Lvl) [facility]2015-10-09 22:53:19 Test Item Value Reference Range Interpretation Comments eGFR (test code = eGFR) 70 [facility]2015-10-09 22:53:19 Test Item Value Reference Range Interpretation Comments Glucose Lvl (test code = Glucose Lvl) 103 70-99 [facility]2015-10-09 22:53:19 Test Item Value Reference Range Interpretation Comments Albumin Lvl (test code = Albumin Lvl) 3.6 3.5-5.0 [facility]2015-10-09 22:53:19 Test Item Value Reference Range Interpretation Comments CO2 (test code = CO2) 24 24-32 [facility]2015-10-09 22:53:19 Test Item Value Reference Range Interpretation Comments Total Protein (test code = Total 7.2 6.4-8.4 Protein) [facility]2015-10-09 22:53:19 Test Item Value Reference Range Interpretation Comments Creatinine Lvl (test code = Creatinine 1.1 0.5-1.4 Lvl) [facility]2015-10-09 22:53:19 Test Item Value Reference Range Interpretation Comments BUN (test code = BUN) 14 7-22 [facility]2015-10-09 22:53:19 Test Item Value Reference Range Interpretation Comments Magnesium Lvl (test code = Magnesium 1.8 1.8-2.4 Lvl) [facility]2015-10-09 22:53:19 Test Item Value Reference Range Interpretation Comments AST (test code = AST) 12 See_Comment [Auto mated message] The system which ge nerated this result transmit arvind reference range : <=37. The reference range was not used to interpr et this result as mario l/abnormal. [facility]2015-10-09 22:53:19 Test Item Value Reference Range Interpretation Comments ALT (test code = ALT) 41 See_Comment [Auto mated message] The system which ge nerated this result transmit arvind reference range : <=65. The reference range was not used to interpr et this result as mario l/abnormal. [facility]2015-10-09 22:53:19 Test Item Value Reference Range Interpretation Comments Alk Phos (test code = Alk Phos) 100 39-136 [facility]2015-10-09 22:53:19 Test Item Value Reference Range Interpretation Comments Bili Total (test code = Bili Total) 0.2 0.2-1.3 [place] 203065-10-09 22:53:19 Test Item Value Reference Range Interpretation Comments Potassium Lvl (test code = Potassium 3.9 3.5-5.1 Lvl) [facility]2015-10-09 22:53:19 Test Item Value Reference Range Interpretation Comments Sodium Lvl (test code = Sodium Lvl) 141 135-145 [facility]2015-10-09 22:53:19 Test Item Value Reference Range Interpretation Comments Calcium Lvl (test code = Calcium Lvl) 9.0 8.5-10.5 [facility]2015-10-09 22:53:19 Test Item Value Reference Range Interpretation Comments Chloride Lvl (test code = Chloride Lvl) 109 95-109 [facility]2015-10-09 22:53:19 Test Item Value Reference Range Interpretation Comments AGAP (test code = AGAP) 11.9 10.0-20.0 [facility]2015-10-09 22:53:19 Test Item Value Reference Range Interpretation Comments A/G Ratio (test code = A/G Ratio) 1.0 0.7-1.6 [facility]ownKxslbpdDMSJIYZJTH7805-92-54 22:53:19 Test Item Value Reference Range Interpretation Comments Segs (test code = Segs) 57.5 45.0-75.0 [facility]2015-10-09 22:53:19 Test Item Value Reference Range Interpretation Comments B/C Ratio (test code = B/C Ratio) 13 6-25 [facility]2015-10-09 22:53:19 Test Item Value Reference Range Interpretation Comments Globulin (test code = Globulin) 3.6 2.0-4.0 [facility]2015-10-09 22:53:19 Test Item Value Reference Range Interpretation Comments Magnesium Lvl (test code = Magnesium 1.8 1.8-2.4 Lvl) [facility] UptownGygeendSKQGSWKKQT7436-43-93 22:53:19 Test Item Value Reference Range Interpretation Comments Segs (test code = Segs) 57.5 45.0-75.0 [facility]ptownHwhzdjwLJOEFWMLDG8057-68-70 22:53:19 Test Item Value Reference Range Interpretation Comments Monocytes (test code = Monocytes) 7.6 2.0-12.0 [facility] UptownJpijqyjVWOOMLOJPL8341-52-35 22:53:19 Test Item Value Reference Range Interpretation Comments Basophils (test code = 1.0 See_Comment [Aut omated message] The Basophils) system which ge nerated this result tra nsmitted reference range : <=1.0. The reference r kat was not used to int erpret this result as normal/abnormal . [facility] UptownDqtukgwTBRUDMGOTZ0764-96-78 22:53:19 Test Item Value Reference Range Interpretation Comments Lymphocytes (test code = Lymphocytes) 32.9 20.0-40.0 [facility] UptownIzzzwgsNTLOOUZYZE9785-57-35 22:53:19 Test Item Value Reference Range Interpretation Comments Eosinophils (test code = 1.0 See_Comment [A utomated message] The Eosinophils) system which ge nerated this result tra nsmitted reference range : <=4.0. The reference r kat was not used to int erpret this result as normal/abnormal . [facility] UptownYmbdqnmJTMICYURAW4981-55-42 22:53:19 Test Item Value Reference Range Interpretation Comments Lymphocytes # (test code = Lymphocytes 3.8 1.0-5.5 #) [facility] UptownNqjymkqVOCQZSMEKL5218-05-34 22:53:19 Test Item Value Reference Range Interpretation Comments Segs-Bands # (test code = Segs-Bands #) 6.6 1.5-8.1 [facility] UptownNdsqzcrPDRAVNPETP7367-60-15 22:53:19 Test Item Value Reference Range Interpretation Comments Monocytes (test code = Monocytes) 7.6 2.0-12.0 [facility] UptownBepmsmnAHJBPVDVDC4863-95-55 22:53:19 Test Item Value Reference Range Interpretation Comments Eosinophils # (test code 0.1 See_Comment [A utomated message] The = Eosinophils #) system [facility] generated this result tra nsmitted reference range : <=0.5. The reference r kat was not used to int erpret this result as normal/abnormal . [facility]ownVbsreiaPMSYJQXGUS4799-87-99 22:53:19 Test Item Value Reference Range Interpretation Comments Monocytes # (test code 0.9 See_Comment [Aut omated message] The = Monocytes #) system which generated this result tra nsmitted reference range : <=0.8. The reference r kat was not used to int erpret this result as normal/abnormal . [facility] UptownFrxvetnKIHQCXESJL7651-79-50 22:53:19 Test Item Value Reference Range Interpretation Comments Microcyte (test code = 1+ *ABN*(06/07/15 Microcyte) 5:53 PM) [facility]ptownCjbwmqvDTVZLLIPAK0087-53-68 22:53:19 Test Item Value Reference Range Interpretation Comments Basophils # (test code 0.1 See_Comment [Aut omated message] The = Basophils #) system which generated this result tra nsmitted reference range : <=0.2. The reference r kat was not used to int erpret this result as normal/abnormal . [facility] UptownMpkskorRONEJDJXEK7336-73-78 22:53:19 Test Item Value Reference Range Interpretation Comments RBC (test code = RBC) 5.23 4.20-5.40 [facility] UptownAdistxsTRUTCZOZUR0125-85-79 22:53:19 Test Item Value Reference Range Interpretation Comments Platelet (test code = Platelet) 241 133-450 [facility] UptownEbgcjyrLXAOMZFHRT4987-65-49 22:53:19 Test Item Value Reference Range Interpretation Comments MPV (test code = MPV) 9.3 7.4-10.4 [facility] UptownXxuxxmiXVOOCRLWNT4094-57-64 22:53:19 Test Item Value Reference Range Interpretation Comments RDW (test code = RDW) 16.5 11.5-14.5 [facility] UptownMyfquhbCPXRJXYGWN9618-29-87 22:53:19 Test Item Value Reference Range Interpretation Comments Hct (test code = Hct) 41.0 36.0-48.0 [facility] UptownGfuhyyzWBAUOALLYG9377-81-26 22:53:19 Test Item Value Reference Range Interpretation Comments Hgb (test code = Hgb) 12.7 12.0-16.0 [facility] UptownLmfeaduMPZDHMROSQ1720-83-98 22:53:19 Test Item Value Reference Range Interpretation Comments Basophils (test code = 1.0 See_Comment [Aut omated message] The Basophils) system which ge nerated this result tra nsmitted reference range : <=1.0. The reference r kat was not used to int erpret this result as normal/abnormal . [facility] UptownVnufamhGIRMEKCRFG4211-34-89 22:53:19 Test Item Value Reference Range Interpretation Comments WBC (test code = WBC) 11.5 3.7-10.4 [facility] UptownRphecnhBSVQRZNVSO3200-95-14 22:53:19 Test Item Value Reference Range Interpretation Comments MCH (test code = MCH) 24.3 pg 27.0-31.0 [facility] UptownUlcekmwNKWPCXLRWX3384-73-03 22:53:19 Test Item Value Reference Range Interpretation Comments MCHC (test code = MCHC) 31.0 32.0-36.0 [facility] UptownCtfdtgaTMKJFOFWKA4963-49-80 22:53:19 Test Item Value Reference Range Interpretation Comments MCV (test code = MCV) 78.4 80.0-98.0 [facility]2015-10-09 22:53:19 Test Item Value Reference Range Interpretation Comments FTI (test code = FTI) 2.5 [facility]2015-10-09 22:53:19 Test Item Value Reference Range Interpretation Comments TSH (test code = TSH) 1.540 0.360-3.740 [facility]2015-10-09 22:53:19 Test Item Value Reference Range Interpretation Comments T3 Uptake (test code = T3 Uptake) 31 31-39 [facility]2015-10-09 22:53:19 Test Item Value Reference Range Interpretation Comments T4 (test code = T4) 8.0 4.7-13.3 [facility] UptownIqxsmhfWRIVHVDNAD8356-24-96 22:53:19 Test Item Value Reference Range Interpretation Comments Lymphocytes (test code = Lymphocytes) 32.9 20.0-40.0 [facility] UptownYayirlcAGKZFXWANT9167-71-12 22:53:19 Test Item Value Reference Range Interpretation Comments Eosinophils (test code = 1.0 See_Comment [A utomated message] The Eosinophils) system which ge nerated this result tra nsmitted reference range : <=4.0. The reference r kat was not used to int erpret this result as normal/abnormal . [facility] UptownEinuohdJIAAXRXDUH3650-68-32 22:53:19 Test Item Value Reference Range Interpretation Comments Lymphocytes # (test code = Lymphocytes 3.8 1.0-5.5 #) [facility] UptownYdlebokSATEROLMKB3669-70-92 22:53:19 Test Item Value Reference Range Interpretation Comments Segs-Bands # (test code = Segs-Bands #) 6.6 1.5-8.1 [facility] UptownJpxmgblQLVWLKLGHP6327-86-43 22:53:19 Test Item Value Reference Range Interpretation Comments Eosinophils # (test code 0.1 See_Comment [A utomated message] The = Eosinophils #) system whic h generated this result tra nsmitted reference range : <=0.5. The reference r akt was not used to int erpret this result as normal/abnormal . [facility] UptownDmylrtzQPHQVQZACK7839-63-24 22:53:19 Test Item Value Reference Range Interpretation Comments Monocytes # (test code 0.9 See_Comment [Aut omated message] The = Monocytes #) system which generated this result tra nsmitted reference range : <=0.8. The reference r kat was not used to int erpret this result as normal/abnormal . [facility] UptownPckiaowMFGUCGOHPU2781-57-90 22:53:19 Test Item Value Reference Range Interpretation Comments Microcyte (test code = 1+ *ABN*(06/07/15 Microcyte) 5:53 PM) [facility] UptownFkjuzjbBMFBRWQKJV8638-60-63 22:53:19 Test Item Value Reference Range Interpretation Comments Basophils # (test code 0.1 See_Comment [Aut omated message] The = Basophils #) system which generated this result tra nsmitted reference range : <=0.2. The reference r kat was not used to int erpret this result as normal/abnormal . [facility] UptownOuatceeRRRIYNDORI6967-51-17 22:53:19 Test Item Value Reference Range Interpretation Comments RBC (test code = RBC) 5.23 4.20-5.40 [facility] UptownBhzogsmJOYITVBNRD6442-82-54 22:53:19 Test Item Value Reference Range Interpretation Comments Platelet (test code = Platelet) 241 133-450 [facility] UptownEzvbfuaOCISSFWENY9598-96-97 22:53:19 Test Item Value Reference Range Interpretation Comments MPV (test code = MPV) 9.3 7.4-10.4 [facility] UptownLvsrfigYEIKABYQDH7777-53-24 22:53:19 Test Item Value Reference Range Interpretation Comments RDW (test code = RDW) 16.5 11.5-14.5 [facility] UptownKwfcfciOCKLFYMCRX1222-74-37 22:53:19 Test Item Value Reference Range Interpretation Comments Hct (test code = Hct) 41.0 36.0-48.0 [facility] UptownYwdenefPQJRTGNYMB1771-65-02 22:53:19 Test Item Value Reference Range Interpretation Comments Hgb (test code = Hgb) 12.7 12.0-16.0 [facility] UptownSswbvzhHNZAWTQJTF1374-03-44 22:53:19 Test Item Value Reference Range Interpretation Comments WBC (test code = WBC) 11.5 3.7-10.4 [facility] UptownEdkwlruYTOSONBRPT8318-45-74 22:53:19 Test Item Value Reference Range Interpretation Comments MCH (test code = MCH) 24.3 pg 27.0-31.0 [facility] UptownKnyipfzQHLTXRRKYS2927-61-80 22:53:19 Test Item Value Reference Range Interpretation Comments MCHC (test code = MCHC) 31.0 32.0-36.0 [facility] UptownTaceocmRZZPWGCFOS8922-35-83 22:53:19 Test Item Value Reference Range Interpretation Comments MCV (test code = MCV) 78.4 80.0-98.0 [facility]2015-10-09 22:53:19 Test Item Value Reference Range Interpretation Comments FTI (test code = FTI) 2.5 [facility]2015-10-09 22:53:19 Test Item Value Reference Range Interpretation Comments TSH (test code = TSH) 1.540 0.360-3.740 [facility]2015-10-09 22:53:19 Test Item Value Reference Range Interpretation Comments T3 Uptake (test code = T3 Uptake) 31 31-39 [facility]2015-10-09 22:53:19 Test Item Value Reference Range Interpretation Comments T4 (test code = T4) 8.0 4.7-13.3 [facility]2015-10-09 22:53:19 Test Item Value Reference Range Interpretation Comments Transferrin (test code = Transferrin) 256 212-360 [facility]2015-10-09 22:53:19 Test Item Value Reference Range Interpretation Comments Vitamin B12 Lvl (test code = Vitamin [phone] B12 Lvl) [facility]2015-10-09 22:53:19 Test Item Value Reference Range Interpretation Comments eGFR (test code = eGFR) 70 [facility]2015-10-09 22:53:19 Test Item Value Reference Range Interpretation Comments Glucose Lvl (test code = Glucose Lvl) 103 70-99 [facility]2015-10-09 22:53:19 Test Item Value Reference Range Interpretation Comments Albumin Lvl (test code = Albumin Lvl) 3.6 3.5-5.0 [facility]2015-10-09 22:53:19 Test Item Value Reference Range Interpretation Comments CO2 (test code = CO2) 24 24-32 [facility]2015-10-09 22:53:19 Test Item Value Reference Range Interpretation Comments Total Protein (test code = Total 7.2 6.4-8.4 Protein) [facility]2015-10-09 22:53:19 Test Item Value Reference Range Interpretation Comments Creatinine Lvl (test code = Creatinine 1.1 0.5-1.4 Lvl) [facility]2015-10-09 22:53:19 Test Item Value Reference Range Interpretation Comments BUN (test code = BUN) 14 7-22 [facility]2015-10-09 22:53:19 Test Item Value Reference Range Interpretation Comments AST (test code = AST) 12 See_Comment [Auto mated message] The system which ge nerated this result transmit arvind reference range : <=37. The reference range was not used to interpr et this result as mario l/abnormal. [facility]2015-10-09 22:53:19 Test Item Value Reference Range Interpretation Comments ALT (test code = ALT) 41 See_Comment [Auto mated message] The system which ge nerated this result transmit arvind reference range : <=65. The reference range was not used to interpr et this result as mario l/abnormal. [facility]2015-10-09 22:53:19 Test Item Value Reference Range Interpretation Comments Alk Phos (test code = Alk Phos) 100 39-136 [facility]2015-10-09 22:53:19 Test Item Value Reference Range Interpretation Comments Bili Total (test code = Bili Total) 0.2 0.2-1.3 [facility]2015-10-09 22:53:19 Test Item Value Reference Range Interpretation Comments Potassium Lvl (test code = Potassium 3.9 3.5-5.1 Lvl) [facility]2015-10-09 22:53:19 Test Item Value Reference Range Interpretation Comments Sodium Lvl (test code = Sodium Lvl) 141 135-145 [facility]2015-10-09 22:53:19 Test Item Value Reference Range Interpretation Comments Calcium Lvl (test code = Calcium Lvl) 9.0 8.5-10.5 [facility]2015-10-09 22:53:19 Test Item Value Reference Range Interpretation Comments Chloride Lvl (test code = Chloride Lvl) 109 95-109 [facility]2015-10-09 22:53:19 Test Item Value Reference Range Interpretation Comments AGAP (test code = AGAP) 11.9 10.0-20.0 [facility]2015-10-09 22:53:19 Test Item Value Reference Range Interpretation Comments A/G Ratio (test code = A/G Ratio) 1.0 0.7-1.6 [facility]2015-10-09 22:53:19 Test Item Value Reference Range Interpretation Comments B/C Ratio (test code = B/C Ratio) 13 6-25 [facility]2015-10-09 22:53:19 Test Item Value Reference Range Interpretation Comments Globulin (test code = Globulin) 3.6 2.0-4.0 [facility]2015-10-09 22:53:19 Test Item Value Reference Range Interpretation Comments Magnesium Lvl (test code = Magnesium 1.8 1.8-2.4 Lvl) [facility]ownOccjkgbJLKAOFEVOR2250-77-06 22:53:19 Test Item Value Reference Range Interpretation Comments Segs (test code = Segs) 57.5 45.0-75.0 [facility] UptownYzdqofpKNLLGAIEIS8457-21-41 22:53:19 Test Item Value Reference Range Interpretation Comments Monocytes (test code = Monocytes) 7.6 2.0-12.0 [facility] UptownWqrhikfASOKMJJTUY0172-25-21 22:53:19 Test Item Value Reference Range Interpretation Comments Basophils (test code = 1.0 See_Comment [Aut omated message] The Basophils) system which ge nerated this result tra nsmitted reference range : <=1.0. The reference r kat was not used to int erpret this result as normal/abnormal . [facility] UptownSlyqtbgCIVRZWRHBQ3798-99-07 22:53:19 Test Item Value Reference Range Interpretation Comments Lymphocytes (test code = Lymphocytes) 32.9 20.0-40.0 [facility] UptownYgcffkdTMPJHIYFEQ7387-69-48 22:53:19 Test Item Value Reference Range Interpretation Comments Eosinophils (test code = 1.0 See_Comment [A utomated message] The Eosinophils) system which ge nerated this result tra nsmitted reference range : <=4.0. The reference r kat was not used to int erpret this result as normal/abnormal . [facility] UptownBkfdcghWYHENVBGYW4154-31-41 22:53:19 Test Item Value Reference Range Interpretation Comments Lymphocytes # (test code = Lymphocytes 3.8 1.0-5.5 #) [facility] UptownVkteznpDAFPEPNUNC9872-36-47 22:53:19 Test Item Value Reference Range Interpretation Comments Segs-Bands # (test code = Segs-Bands #) 6.6 1.5-8.1 [facility]ptownAeaavwzFTTFVFTWTI0469-65-00 22:53:19 Test Item Value Reference Range Interpretation Comments Eosinophils # (test code 0.1 See_Comment [A utomated message] The = Eosinophils #) system whic h generated this result tra nsmitted reference range : <=0.5. The reference r kat was not used to int erpret this result as normal/abnormal . [facility] UptownLuoogxlOCFNESJPAK3939-73-97 22:53:19 Test Item Value Reference Range Interpretation Comments Monocytes # (test code 0.9 See_Comment [Aut omated message] The = Monocytes #) system which generated this result tra nsmitted reference range : <=0.8. The reference r kat was not used to int erpret this result as normal/abnormal . [facility] UptownTzdrcgfURRINVRJCQ9631-28-69 22:53:19 Test Item Value Reference Range Interpretation Comments Microcyte (test code = 1+ *ABN*(06/07/15 Microcyte) 5:53 PM) [facility] UptownMilveqeFWVGCQAIXO6997-56-52 22:53:19 Test Item Value Reference Range Interpretation Comments Basophils # (test code 0.1 See_Comment [Aut omated message] The = Basophils #) system which generated this result tra nsmitted reference range : <=0.2. The reference r kat was not used to int erpret this result as normal/abnormal . [facility] UptownOziqtsyWTBFBHHRXW5652-84-82 22:53:19 Test Item Value Reference Range Interpretation Comments RBC (test code = RBC) 5.23 4.20-5.40 [facility] UptownFbxbdvfZMUZJZWYCB1016-63-77 22:53:19 Test Item Value Reference Range Interpretation Comments Platelet (test code = Platelet) 241 133-450 [facility] UptownRhopihvOSPDLCFGEH1234-73-45 22:53:19 Test Item Value Reference Range Interpretation Comments MPV (test code = MPV) 9.3 7.4-10.4 [facility] UptownPytxvdsPIXVVBKSRI7384-35-69 22:53:19 Test Item Value Reference Range Interpretation Comments RDW (test code = RDW) 16.5 11.5-14.5 [facility] UptownFzmjdgmNFBRPNEGRY9370-67-27 22:53:19 Test Item Value Reference Range Interpretation Comments Hct (test code = Hct) 41.0 36.0-48.0 [facility] UptownNrtoqxgAMHFYVNVBD1151-86-82 22:53:19 Test Item Value Reference Range Interpretation Comments Hgb (test code = Hgb) 12.7 12.0-16.0 [facility] UptownRhvabylDWRLAVQTOC1034-59-60 22:53:19 Test Item Value Reference Range Interpretation Comments WBC (test code = WBC) 11.5 3.7-10.4 [facility] UptownOzhuwrsXPLIRWVUFM4381-35-19 22:53:19 Test Item Value Reference Range Interpretation Comments MCH (test code = MCH) 24.3 pg 27.0-31.0 [facility] UptownFijvxdkGBILCGAIJD1662-47-00 22:53:19 Test Item Value Reference Range Interpretation Comments MCHC (test code = MCHC) 31.0 32.0-36.0 [facility] UptownKhzahlzCQJQKUEPAK6319-59-80 22:53:19 Test Item Value Reference Range Interpretation Comments MCV (test code = MCV) 78.4 80.0-98.0 [facility]2015-10-09 22:53:19 Test Item Value Reference Range Interpretation Comments FTI (test code = FTI) 2.5 [facility]2015-10-09 22:53:19 Test Item Value Reference Range Interpretation Comments TSH (test code = TSH) 1.540 0.360-3.740 [facility]2015-10-09 22:53:19 Test Item Value Reference Range Interpretation Comments T3 Uptake (test code = T3 Uptake) 31 31-39 [facility]2015-10-09 22:53:19 Test Item Value Reference Range Interpretation Comments T4 (test code = T4) 8.0 4.7-13.3 [facility]2015-10-09 22:53:19 Test Item Value Reference Range Interpretation Comments Transferrin (test code = Transferrin) 256 212-360 [facility]2015-10-09 22:53:19 Test Item Value Reference Range Interpretation Comments Vitamin B12 Lvl (test code = Vitamin [phone] B12 Lvl) [facility]2015-10-09 22:53:19 Test Item Value Reference Range Interpretation Comments eGFR (test code = eGFR) 70 [facility]2015-10-09 22:53:19 Test Item Value Reference Range Interpretation Comments Glucose Lvl (test code = Glucose Lvl) 103 70-99 [facility]2015-10-09 22:53:19 Test Item Value Reference Range Interpretation Comments Albumin Lvl (test code = Albumin Lvl) 3.6 3.5-5.0 [facility]2015-10-09 22:53:19 Test Item Value Reference Range Interpretation Comments CO2 (test code = CO2) 24 24-32 [facility]2015-10-09 22:53:19 Test Item Value Reference Range Interpretation Comments Total Protein (test code = Total 7.2 6.4-8.4 Protein) [facility]2015-10-09 22:53:19 Test Item Value Reference Range Interpretation Comments Creatinine Lvl (test code = Creatinine 1.1 0.5-1.4 Lvl) [facility]2015-10-09 22:53:19 Test Item Value Reference Range Interpretation Comments BUN (test code = BUN) 14 7-22 [facility]2015-10-09 22:53:19 Test Item Value Reference Range Interpretation Comments AST (test code = AST) 12 See_Comment [Auto mated message] The system which ge nerated this result transmit arvind reference range : <=37. The reference range was not used to interpr et this result as mario l/abnormal. [facility]2015-10-09 22:53:19 Test Item Value Reference Range Interpretation Comments ALT (test code = ALT) 41 See_Comment [Auto mated message] The system which ge nerated this result transmit arvind reference range : <=65. The reference range was not used to interpr et this result as mario l/abnormal. [facility]2015-10-09 22:53:19 Test Item Value Reference Range Interpretation Comments Alk Phos (test code = Alk Phos) 100 39-136 [facility]2015-10-09 22:53:19 Test Item Value Reference Range Interpretation Comments Bili Total (test code = Bili Total) 0.2 0.2-1.3 [facility]2015-10-09 22:53:19 Test Item Value Reference Range Interpretation Comments Potassium Lvl (test code = Potassium 3.9 3.5-5.1 Lvl) [facility]2015-10-09 22:53:19 Test Item Value Reference Range Interpretation Comments Sodium Lvl (test code = Sodium Lvl) 141 135-145 [facility]2015-10-09 22:53:19 Test Item Value Reference Range Interpretation Comments Calcium Lvl (test code = Calcium Lvl) 9.0 8.5-10.5 [facility]2015-10-09 22:53:19 Test Item Value Reference Range Interpretation Comments Chloride Lvl (test code = Chloride Lvl) 109 95-109 [facility]2015-10-09 22:53:19 Test Item Value Reference Range Interpretation Comments AGAP (test code = AGAP) 11.9 10.0-20.0 [facility]2015-10-09 22:53:19 Test Item Value Reference Range Interpretation Comments A/G Ratio (test code = A/G Ratio) 1.0 0.7-1.6 [facility]2015-10-09 22:53:19 Test Item Value Reference Range Interpretation Comments B/C Ratio (test code = B/C Ratio) 13 6-25 [facility]2015-10-09 22:53:19 Test Item Value Reference Range Interpretation Comments Globulin (test code = Globulin) 3.6 2.0-4.0 [facility]2015-10-09 22:53:19 Test Item Value Reference Range Interpretation Comments Magnesium Lvl (test code = Magnesium 1.8 1.8-2.4 Lvl) [facility]ownHgquqlfQNMSQDPTZZ3192-16-49 22:53:19 Test Item Value Reference Range Interpretation Comments Segs (test code = Segs) 57.5 45.0-75.0 [facility] UptownAkcvcsxWESKVBMMOA8686-02-87 22:53:19 Test Item Value Reference Range Interpretation Comments Monocytes (test code = Monocytes) 7.6 2.0-12.0 [facility] UptownIxkztwjDLITQZWPWL8425-58-80 22:53:19 Test Item Value Reference Range Interpretation Comments Basophils (test code = 1.0 See_Comment [Aut omated message] The Basophils) system which ge nerated this result tra nsmitted reference range : <=1.0. The reference r kat was not used to int erpret this result as normal/abnormal . [facility] UptownSlkutxhCUUWWEXOKY2606-35-92 22:53:19 Test Item Value Reference Range Interpretation Comments Lymphocytes (test code = Lymphocytes) 32.9 20.0-40.0 [facility] UptownRkfkxiwQTSWWEQOBG3204-83-42 22:53:19 Test Item Value Reference Range Interpretation Comments Eosinophils (test code = 1.0 See_Comment [A utomated message] The Eosinophils) system which ge nerated this result tra nsmitted reference range : <=4.0. The reference r kat was not used to int erpret this result as normal/abnormal . [facility] UptownTeqvmzdSBQPIORDZP3499-47-36 22:53:19 Test Item Value Reference Range Interpretation Comments Lymphocytes # (test code = Lymphocytes 3.8 1.0-5.5 #) [facility] UptownGdottarQOZYOASRPM5747-66-73 22:53:19 Test Item Value Reference Range Interpretation Comments Segs-Bands # (test code = Segs-Bands #) 6.6 1.5-8.1 [facility] UptownExfoykuAVPSITUYZG9212-93-85 22:53:19 Test Item Value Reference Range Interpretation Comments Eosinophils # (test code 0.1 See_Comment [A utomated message] The = Eosinophils #) system [facility] generated this result tra nsmitted reference range : <=0.5. The reference r kat was not used to int erpret this result as normal/abnormal . [facility]ownVrmaetxOISFRTDCDS6949-55-70 22:53:19 Test Item Value Reference Range Interpretation Comments Monocytes # (test code 0.9 See_Comment [Aut omated message] The = Monocytes #) system which generated this result tra nsmitted reference range : <=0.8. The reference r kat was not used to int erpret this result as normal/abnormal . [facility]ptownVjgxaawOBFTGXDEYT5525-72-06 22:53:19 Test Item Value Reference Range Interpretation Comments Microcyte (test code = 1+ *ABN*(06/07/15 Microcyte) 5:53 PM) [facility]ptownJawyjoxINNHRDBBNB6685-59-87 22:53:19 Test Item Value Reference Range Interpretation Comments Basophils # (test code 0.1 See_Comment [Aut omated message] The = Basophils #) system which generated this result tra nsmitted reference range : <=0.2. The reference r kat was not used to int erpret this result as normal/abnormal . [facility] UptownUhohatbIMMOHYMZUQ6532-21-04 22:53:19 Test Item Value Reference Range Interpretation Comments RBC (test code = RBC) 5.23 4.20-5.40 [facility]ptownYeslexkHUGHEGHJZB0927-28-56 22:53:19 Test Item Value Reference Range Interpretation Comments Platelet (test code = Platelet) 241 133-450 [facility] UptownObydajoACHSBFTZLD9231-04-69 22:53:19 Test Item Value Reference Range Interpretation Comments MPV (test code = MPV) 9.3 7.4-10.4 [facility] UptownVwxzdmhPQXYMSGACW5225-71-65 22:53:19 Test Item Value Reference Range Interpretation Comments RDW (test code = RDW) 16.5 11.5-14.5 [facility] UptownKpadwitKNDBCRTCOB6451-26-38 22:53:19 Test Item Value Reference Range Interpretation Comments Hct (test code = Hct) 41.0 36.0-48.0 [facility] UptownYdncvidYQRSGESDHI6409-63-66 22:53:19 Test Item Value Reference Range Interpretation Comments Hgb (test code = Hgb) 12.7 12.0-16.0 [facility] UptownAockdnmJHDDZQTDGO1742-97-89 22:53:19 Test Item Value Reference Range Interpretation Comments WBC (test code = WBC) 11.5 3.7-10.4 [facility] UptownLuoxyfhVIMHLCVYDC0490-37-00 22:53:19 Test Item Value Reference Range Interpretation Comments MCH (test code = MCH) 24.3 pg 27.0-31.0 [facility] UptownBlhgaldMCAOAWFKWX6110-90-24 22:53:19 Test Item Value Reference Range Interpretation Comments MCHC (test code = MCHC) 31.0 32.0-36.0 [facility] UptownZceptlqMUOKCGJEJN7744-07-92 22:53:19 Test Item Value Reference Range Interpretation Comments MCV (test code = MCV) 78.4 80.0-98.0 [facility]2015-10-09 22:53:19 Test Item Value Reference Range Interpretation Comments FTI (test code = FTI) 2.5 [facility]2015-10-09 22:53:19 Test Item Value Reference Range Interpretation Comments TSH (test code = TSH) 1.540 0.360-3.740 [facility]2015-10-09 22:53:19 Test Item Value Reference Range Interpretation Comments T3 Uptake (test code = T3 Uptake) 31 31-39 [facility]2015-10-09 22:53:19 Test Item Value Reference Range Interpretation Comments T4 (test code = T4) 8.0 4.7-13.3 [facility]2015-10-09 22:53:19 Test Item Value Reference Range Interpretation Comments Transferrin (test code = Transferrin) 256 212-360 [facility]2015-10-09 22:53:19 Test Item Value Reference Range Interpretation Comments Vitamin B12 Lvl (test code = Vitamin [phone] B12 Lvl) [facility]2015-10-09 22:53:19 Test Item Value Reference Range Interpretation Comments eGFR (test code = eGFR) 70 [facility]2015-10-09 22:53:19 Test Item Value Reference Range Interpretation Comments Glucose Lvl (test code = Glucose Lvl) 103 70-99 [facility]2015-10-09 22:53:19 Test Item Value Reference Range Interpretation Comments Albumin Lvl (test code = Albumin Lvl) 3.6 3.5-5.0 [facility]2015-10-09 22:53:19 Test Item Value Reference Range Interpretation Comments CO2 (test code = CO2) 24 24-32 [facility]2015-10-09 22:53:19 Test Item Value Reference Range Interpretation Comments Total Protein (test code = Total 7.2 6.4-8.4 Protein) [facility]2015-10-09 22:53:19 Test Item Value Reference Range Interpretation Comments Creatinine Lvl (test code = Creatinine 1.1 0.5-1.4 Lvl) [facility]2015-10-09 22:53:19 Test Item Value Reference Range Interpretation Comments BUN (test code = BUN) 14 7-22 [facility]2015-10-09 22:53:19 Test Item Value Reference Range Interpretation Comments AST (test code = AST) 12 See_Comment [Auto mated message] The system which ge nerated this result transmit arvind reference range : <=37. The reference range was not used to interpr et this result as mario l/abnormal. [facility]2015-10-09 22:53:19 Test Item Value Reference Range Interpretation Comments ALT (test code = ALT) 41 See_Comment [Auto mated message] The system which ge nerated this result transmit arvind reference range : <=65. The reference range was not used to interpr et this result as mario l/abnormal. [facility]2015-10-09 22:53:19 Test Item Value Reference Range Interpretation Comments Alk Phos (test code = Alk Phos) 100 39-136 [facility]2015-10-09 22:53:19 Test Item Value Reference Range Interpretation Comments Bili Total (test code = Bili Total) 0.2 0.2-1.3 [facility]2015-10-09 22:53:19 Test Item Value Reference Range Interpretation Comments Potassium Lvl (test code = Potassium 3.9 3.5-5.1 Lvl) [facility]2015-10-09 22:53:19 Test Item Value Reference Range Interpretation Comments Sodium Lvl (test code = Sodium Lvl) 141 135-145 [facility]2015-10-09 22:53:19 Test Item Value Reference Range Interpretation Comments Calcium Lvl (test code = Calcium Lvl) 9.0 8.5-10.5 [facility] CenterEkaya.comUNC MEDICAL CENTERNQEQW9528-13-83 22:53:19 Test Item Value Reference Range Interpretation Comments Chloride Lvl (test code = Chloride Lvl) 109 95-109 [facility] CenterEkaya.comUNC MEDICAL CENTERIZKHN6664-58-01 22:53:19 Test Item Value Reference Range Interpretation Comments AGAP (test code = AGAP) 11.9 10.0-20.0 [facility]2015-10-09 22:53:19 Test Item Value Reference Range Interpretation Comments A/G Ratio (test code = A/G Ratio) 1.0 0.7-1.6 [facility]2015-10-09 22:53:19 Test Item Value Reference Range Interpretation Comments B/C Ratio (test code = B/C Ratio) 13 6-25 [facility]2015-10-09 22:53:19 Test Item Value Reference Range Interpretation Comments Globulin (test code = Globulin) 3.6 2.0-4.0 [facility]2015-10-09 22:53:19 Test Item Value Reference Range Interpretation Comments Magnesium Lvl (test code = Magnesium 1.8 1.8-2.4 Lvl) [facility] UptownKnwhdsoJANWNIMBEN9699-52-80 22:53:19 Test Item Value Reference Range Interpretation Comments Segs (test code = Segs) 57.5 45.0-75.0 [facility] UptownSykozrnVRGCQQZIVZ7546-06-85 22:53:19 Test Item Value Reference Range Interpretation Comments Monocytes (test code = Monocytes) 7.6 2.0-12.0 [facility] UptownGrqjrczWGNQWQIXJS0272-15-63 22:53:19 Test Item Value Reference Range Interpretation Comments Basophils (test code = 1.0 See_Comment [Aut omated message] The Basophils) system which ge nerated this result tra nsmitted reference range : <=1.0. The reference r kat was not used to int erpret this result as normal/abnormal . [facility] UptownKekiodyADRRMTSQYB1626-99-02 22:53:19 Test Item Value Reference Range Interpretation Comments Lymphocytes (test code = Lymphocytes) 32.9 20.0-40.0 [facility] UptownRszynudMGGNAOYRIM6875-63-56 22:53:19 Test Item Value Reference Range Interpretation Comments Eosinophils (test code = 1.0 See_Comment [A utomated message] The Eosinophils) system which ge nerated this result tra nsmitted reference range : <=4.0. The reference r kat was not used to int erpret this result as normal/abnormal . [facility] UptownApqnyweDCVFYBNXQH2151-35-61 22:53:19 Test Item Value Reference Range Interpretation Comments Lymphocytes # (test code = Lymphocytes 3.8 1.0-5.5 #) [facility] UptownVkymgvdFUIBCAVHRT1158-37-92 22:53:19 Test Item Value Reference Range Interpretation Comments Segs-Bands # (test code = Segs-Bands #) 6.6 1.5-8.1 [facility] UptownGalozblPZEDELJWFK2853-03-13 22:53:19 Test Item Value Reference Range Interpretation Comments Eosinophils # (test code 0.1 See_Comment [A utomated message] The = Eosinophils #) system whic h generated this result tra nsmitted reference range : <=0.5. The reference r kat was not used to int erpret this result as normal/abnormal . [facility] UptownJtexecmJCQGJNIJKC9327-01-89 22:53:19 Test Item Value Reference Range Interpretation Comments Monocytes # (test code 0.9 See_Comment [Aut omated message] The = Monocytes #) system which generated this result tra nsmitted reference range : <=0.8. The reference r kat was not used to int erpret this result as normal/abnormal . [facility] UptownOkujllzTCOOLZOJVJ0685-27-31 22:53:19 Test Item Value Reference Range Interpretation Comments Microcyte (test code = 1+ *ABN*(06/07/15 Microcyte) 5:53 PM) [facility] UptownWtymifiOACIOFQTYG3744-75-85 22:53:19 Test Item Value Reference Range Interpretation Comments Basophils # (test code 0.1 See_Comment [Aut omated message] The = Basophils #) system which generated this result tra nsmitted reference range : <=0.2. The reference r kat was not used to int erpret this result as normal/abnormal . [facility] UptownXngpgtjFAAGCQDBCG8659-02-72 22:53:19 Test Item Value Reference Range Interpretation Comments RBC (test code = RBC) 5.23 4.20-5.40 [facility] UptownEiiqbxkIVCIKQNHMY1688-92-03 22:53:19 Test Item Value Reference Range Interpretation Comments Platelet (test code = Platelet) 241 133-450 [facility] UptownClcthmpOUTESTSGFC4157-12-04 22:53:19 Test Item Value Reference Range Interpretation Comments MPV (test code = MPV) 9.3 7.4-10.4 [facility] UptownCgwitndILWUBLXGLH9187-89-29 22:53:19 Test Item Value Reference Range Interpretation Comments RDW (test code = RDW) 16.5 11.5-14.5 [facility] UptownArwvmxeKYRUBTCMRQ1019-08-81 22:53:19 Test Item Value Reference Range Interpretation Comments Hct (test code = Hct) 41.0 36.0-48.0 [facility] UptownBaqelsuASWYAFEYDA1443-63-09 22:53:19 Test Item Value Reference Range Interpretation Comments Hgb (test code = Hgb) 12.7 12.0-16.0 [facility] UptownFehfdeaWOWMFZYSYY3381-07-15 22:53:19 Test Item Value Reference Range Interpretation Comments WBC (test code = WBC) 11.5 3.7-10.4 [facility] UptownJuxvwbjUYHBFCAQQO5958-06-34 22:53:19 Test Item Value Reference Range Interpretation Comments MCH (test code = MCH) 24.3 pg 27.0-31.0 [facility] UptownOmwuqysMKFWFXUUME9668-60-09 22:53:19 Test Item Value Reference Range Interpretation Comments MCHC (test code = MCHC) 31.0 32.0-36.0 [facility] UptownRxlpwibBCMHMOCJQB4967-19-85 22:53:19 Test Item Value Reference Range Interpretation Comments MCV (test code = MCV) 78.4 80.0-98.0 [facility]2015-10-09 22:53:19 Test Item Value Reference Range Interpretation Comments FTI (test code = FTI) 2.5 [facility]2015-10-09 22:53:19 Test Item Value Reference Range Interpretation Comments TSH (test code = TSH) 1.540 0.360-3.740 [facility]2015-10-09 22:53:19 Test Item Value Reference Range Interpretation Comments T3 Uptake (test code = T3 Uptake) 31 31-39 [facility]2015-10-09 22:53:19 Test Item Value Reference Range Interpretation Comments T4 (test code = T4) 8.0 4.7-13.3 [facility]2015-10-09 22:53:19 Test Item Value Reference Range Interpretation Comments Transferrin (test code = Transferrin) 256 212-360 [facility]2015-10-09 22:53:19 Test Item Value Reference Range Interpretation Comments Vitamin B12 Lvl (test code = Vitamin [phone] B12 Lvl) [facility]2015-10-09 22:53:19 Test Item Value Reference Range Interpretation Comments eGFR (test code = eGFR) 70 [facility]2015-10-09 22:53:19 Test Item Value Reference Range Interpretation Comments Glucose Lvl (test code = Glucose Lvl) 103 70-99 [facility]2015-10-09 22:53:19 Test Item Value Reference Range Interpretation Comments Albumin Lvl (test code = Albumin Lvl) 3.6 3.5-5.0 [facility]2015-10-09 22:53:19 Test Item Value Reference Range Interpretation Comments CO2 (test code = CO2) 24 24-32 [facility]2015-10-09 22:53:19 Test Item Value Reference Range Interpretation Comments Total Protein (test code = Total 7.2 6.4-8.4 Protein) [facility]2015-10-09 22:53:19 Test Item Value Reference Range Interpretation Comments Creatinine Lvl (test code = Creatinine 1.1 0.5-1.4 Lvl) [facility]2015-10-09 22:53:19 Test Item Value Reference Range Interpretation Comments BUN (test code = BUN) 14 7-22 [facility]2015-10-09 22:53:19 Test Item Value Reference Range Interpretation Comments AST (test code = AST) 12 See_Comment [Auto mated message] The system which ge nerated this result transmit arvind reference range : <=37. The reference range was not used to interpr et this result as mario l/abnormal. [facility]2015-10-09 22:53:19 Test Item Value Reference Range Interpretation Comments ALT (test code = ALT) 41 See_Comment [Auto mated message] The system which ge nerated this result transmit arvind reference range : <=65. The reference range was not used to interpr et this result as mario l/abnormal. [facility]2015-10-09 22:53:19 Test Item Value Reference Range Interpretation Comments Alk Phos (test code = Alk Phos) 100 39-136 [facility]2015-10-09 22:53:19 Test Item Value Reference Range Interpretation Comments Bili Total (test code = Bili Total) 0.2 0.2-1.3 [facility]2015-10-09 22:53:19 Test Item Value Reference Range Interpretation Comments Potassium Lvl (test code = Potassium 3.9 3.5-5.1 Lvl) [facility]2015-10-09 22:53:19 Test Item Value Reference Range Interpretation Comments Sodium Lvl (test code = Sodium Lvl) 141 135-145 [facility]2015-10-09 22:53:19 Test Item Value Reference Range Interpretation Comments Calcium Lvl (test code = Calcium Lvl) 9.0 8.5-10.5 [facility]2015-10-09 22:53:19 Test Item Value Reference Range Interpretation Comments Chloride Lvl (test code = Chloride Lvl) 109 95-109 [facility]2015-10-09 22:53:19 Test Item Value Reference Range Interpretation Comments AGAP (test code = AGAP) 11.9 10.0-20.0 [facility]2015-10-09 22:53:19 Test Item Value Reference Range Interpretation Comments A/G Ratio (test code = A/G Ratio) 1.0 0.7-1.6 [facility]2015-10-09 22:53:19 Test Item Value Reference Range Interpretation Comments B/C Ratio (test code = B/C Ratio) 13 6-25 [facility]2015-10-09 22:53:19 Test Item Value Reference Range Interpretation Comments Globulin (test code = Globulin) 3.6 2.0-4.0 [facility]2015-10-09 22:53:19 Test Item Value Reference Range Interpretation Comments Magnesium Lvl (test code = Magnesium 1.8 1.8-2.4 Lvl) [facility] UptownSovvozkYFRPAJJDMH9106-31-58 22:53:19 Test Item Value Reference Range Interpretation Comments Segs (test code = Segs) 57.5 45.0-75.0 [facility] UptownNzcwotnZRMZTAFSWZ2047-78-70 22:53:19 Test Item Value Reference Range Interpretation Comments Monocytes (test code = Monocytes) 7.6 2.0-12.0 [facility] UptownBoueuejPSMWUGYEOQ7857-48-47 22:53:19 Test Item Value Reference Range Interpretation Comments Basophils (test code = 1.0 See_Comment [Aut omated message] The Basophils) system which ge nerated this result tra nsmitted reference range : <=1.0. The reference r kat was not used to int erpret this result as normal/abnormal . [facility] UptownOhxllwgGMZURROKAO7026-12-15 22:53:19 Test Item Value Reference Range Interpretation Comments Lymphocytes (test code = Lymphocytes) 32.9 20.0-40.0 [place] 733975-10-09 22:53:19 Test Item Value Reference Range Interpretation Comments Eosinophils (test code = 1.0 See_Comment [A utomated message] The Eosinophils) system which ge nerated this result tra nsmitted reference range : <=4.0. The reference r kat was not used to int erpret this result as normal/abnormal . [facility] UptownBaqwmcsFIINRTWXXN5590-31-28 22:53:19 Test Item Value Reference Range Interpretation Comments Lymphocytes # (test code = Lymphocytes 3.8 1.0-5.5 #) [facility] UptownSxetjpbAVYNKBWVTA8351-36-35 22:53:19 Test Item Value Reference Range Interpretation Comments Segs-Bands # (test code = Segs-Bands #) 6.6 1.5-8.1 [facility] UptownEcsxqxnFVKEXQIMBR2470-63-11 22:53:19 Test Item Value Reference Range Interpretation Comments Eosinophils # (test code 0.1 See_Comment [A utomated message] The = Eosinophils #) system [facility] generated this result tra nsmitted reference range : <=0.5. The reference r kat was not used to int erpret this result as normal/abnormal . [facility] UptownQpyerxjIMTDVOBEBC3757-68-96 22:53:19 Test Item Value Reference Range Interpretation Comments Monocytes # (test code 0.9 See_Comment [Aut omated message] The = Monocytes #) system which generated this result tra nsmitted reference range : <=0.8. The reference r kat was not used to int erpret this result as normal/abnormal . [facility] UptownXuettesPGQGIVVBHA7428-20-07 22:53:19 Test Item Value Reference Range Interpretation Comments Microcyte (test code = 1+ *ABN*(06/07/15 Microcyte) 5:53 PM) [facility] UptownYcxmiwiPEJSAZTGRL7528-52-44 22:53:19 Test Item Value Reference Range Interpretation Comments Basophils # (test code 0.1 See_Comment [Aut omated message] The = Basophils #) system which generated this result tra nsmitted reference range : <=0.2. The reference r kat was not used to int erpret this result as normal/abnormal . [facility] UptownNzrokeuWXEPJJXKGI8692-95-24 22:53:19 Test Item Value Reference Range Interpretation Comments RBC (test code = RBC) 5.23 4.20-5.40 [facility] UptownMfqduhbNKZZMRNLLL5585-42-69 22:53:19 Test Item Value Reference Range Interpretation Comments Platelet (test code = Platelet) 241 133-450 [facility] UptownJbkkxbgOMKCSXFTSW1128-44-06 22:53:19 Test Item Value Reference Range Interpretation Comments MPV (test code = MPV) 9.3 7.4-10.4 [facility] UptownJymblvsDCVANTKGPP0909-68-87 22:53:19 Test Item Value Reference Range Interpretation Comments RDW (test code = RDW) 16.5 11.5-14.5 [facility] UptownYvkzkidVWKYDXCKEE1655-53-09 22:53:19 Test Item Value Reference Range Interpretation Comments Hct (test code = Hct) 41.0 36.0-48.0 [facility] UptownDdyrhaaSBZXFHRTWF5547-90-65 22:53:19 Test Item Value Reference Range Interpretation Comments Hgb (test code = Hgb) 12.7 12.0-16.0 [facility] UptownUnciugwKKBCJLMMHQ0025-30-34 22:53:19 Test Item Value Reference Range Interpretation Comments WBC (test code = WBC) 11.5 3.7-10.4 [facility] UptownEzycbkxGGWHATBUFE1947-85-06 22:53:19 Test Item Value Reference Range Interpretation Comments MCH (test code = MCH) 24.3 pg 27.0-31.0 [facility] UptownEqrtlfjORPKCGIING0474-72-87 22:53:19 Test Item Value Reference Range Interpretation Comments MCHC (test code = MCHC) 31.0 32.0-36.0 [facility] UptownCbildsiKHVJMSALLF1692-39-47 22:53:19 Test Item Value Reference Range Interpretation Comments MCV (test code = MCV) 78.4 80.0-98.0 [facility] LAFOR6303-45-47 22:53:19 Test Item Value Reference Range Interpretation Comments FTI (test code = FTI) 2.5 [facility] CenterTHY[facility] SDSLZ2553-03-36 22:53:19 Test Item Value Reference Range Interpretation Comments TSH (test code = TSH) 1.540 0.360-3.740 [facility] CenterTHY[facility] NMDAC9063-04-13 22:53:19 Test Item Value Reference Range Interpretation Comments T3 Uptake (test code = T3 Uptake) 31 31-39 [facility] CenterTHY[facility] FQASV2287-80-49 22:53:19 Test Item Value Reference Range Interpretation Comments T4 (test code = T4) 8.0 4.7-13.3 [facility]2015-10-09 22:53:19 Test Item Value Reference Range Interpretation Comments Transferrin (test code = Transferrin) 256 212-360 [facility]2015-10-09 22:53:19 Test Item Value Reference Range Interpretation Comments Vitamin B12 Lvl (test code = Vitamin [phone] B12 Lvl) [facility]2015-10-09 22:53:19 Test Item Value Reference Range Interpretation Comments eGFR (test code = eGFR) 70 [facility]2015-10-09 22:53:19 Test Item Value Reference Range Interpretation Comments Glucose Lvl (test code = Glucose Lvl) 103 70-99 [facility]2015-10-09 22:53:19 Test Item Value Reference Range Interpretation Comments Albumin Lvl (test code = Albumin Lvl) 3.6 3.5-5.0 [facility]2015-10-09 22:53:19 Test Item Value Reference Range Interpretation Comments CO2 (test code = CO2) 24 24-32 [facility]2015-10-09 22:53:19 Test Item Value Reference Range Interpretation Comments Total Protein (test code = Total 7.2 6.4-8.4 Protein) [facility]2015-10-09 22:53:19 Test Item Value Reference Range Interpretation Comments Creatinine Lvl (test code = Creatinine 1.1 0.5-1.4 Lvl) [facility]2015-10-09 22:53:19 Test Item Value Reference Range Interpretation Comments BUN (test code = BUN) 14 7-22 [facility]2015-10-09 22:53:19 Test Item Value Reference Range Interpretation Comments AST (test code = AST) 12 See_Comment [Auto mated message] The system which ge nerated this result transmit arvind reference range : <=37. The reference range was not used to interpr et this result as mario l/abnormal. [facility]2015-10-09 22:53:19 Test Item Value Reference Range Interpretation Comments ALT (test code = ALT) 41 See_Comment [Auto mated message] The system which ge nerated this result transmit arvind reference range : <=65. The reference range was not used to interpr et this result as mario l/abnormal. [facility]2015-10-09 22:53:19 Test Item Value Reference Range Interpretation Comments Alk Phos (test code = Alk Phos) 100 39-136 [facility]2015-10-09 22:53:19 Test Item Value Reference Range Interpretation Comments Bili Total (test code = Bili Total) 0.2 0.2-1.3 [facility]2015-10-09 22:53:19 Test Item Value Reference Range Interpretation Comments Potassium Lvl (test code = Potassium 3.9 3.5-5.1 Lvl) [facility]2015-10-09 22:53:19 Test Item Value Reference Range Interpretation Comments Sodium Lvl (test code = Sodium Lvl) 141 135-145 [facility]2015-10-09 22:53:19 Test Item Value Reference Range Interpretation Comments Calcium Lvl (test code = Calcium Lvl) 9.0 8.5-10.5 [facility]2015-10-09 22:53:19 Test Item Value Reference Range Interpretation Comments Chloride Lvl (test code = Chloride Lvl) 109 95-109 [facility]2015-10-09 22:53:19 Test Item Value Reference Range Interpretation Comments AGAP (test code = AGAP) 11.9 10.0-20.0 [facility]2015-10-09 22:53:19 Test Item Value Reference Range Interpretation Comments A/G Ratio (test code = A/G Ratio) 1.0 0.7-1.6 [facility]2015-10-09 22:53:19 Test Item Value Reference Range Interpretation Comments B/C Ratio (test code = B/C Ratio) 13 6-25 [facility]2015-10-09 22:53:19 Test Item Value Reference Range Interpretation Comments Globulin (test code = Globulin) 3.6 2.0-4.0 [facility]2015-10-09 22:53:19 Test Item Value Reference Range Interpretation Comments Magnesium Lvl (test code = Magnesium 1.8 1.8-2.4 Lvl) [facility]ownHeygfiiLLYBMRTCLH6280-89-07 22:53:19 Test Item Value Reference Range Interpretation Comments Segs (test code = Segs) 57.5 45.0-75.0 [facility] UptownBkupydmJFHRHSLLJJ5466-56-54 22:53:19 Test Item Value Reference Range Interpretation Comments Monocytes (test code = Monocytes) 7.6 2.0-12.0 [facility]ptownQftteqjLAXOWJLZUP3137-56-46 22:53:19 Test Item Value Reference Range Interpretation Comments Basophils (test code = 1.0 See_Comment [Aut omated message] The Basophils) system which ge nerated this result tra nsmitted reference range : <=1.0. The reference r kat was not used to int erpret this result as normal/abnormal . [facility] UptownPwzdywyJRIISEWETW2888-40-18 22:53:19 Test Item Value Reference Range Interpretation Comments Lymphocytes (test code = Lymphocytes) 32.9 20.0-40.0 [facility] UptownMwbefxaRCVOQUBSOR0939-22-36 22:53:19 Test Item Value Reference Range Interpretation Comments Eosinophils (test code = 1.0 See_Comment [A utomated message] The Eosinophils) system which ge nerated this result tra nsmitted reference range : <=4.0. The reference r kat was not used to int erpret this result as normal/abnormal . [facility] UptownUisbllwRNNBLZIYCI5307-71-36 22:53:19 Test Item Value Reference Range Interpretation Comments Lymphocytes # (test code = Lymphocytes 3.8 1.0-5.5 #) [facility] UptownIoadgirRSETGBHSOY1396-27-52 22:53:19 Test Item Value Reference Range Interpretation Comments Segs-Bands # (test code = Segs-Bands #) 6.6 1.5-8.1 [facility] UptownYsxyybbWEXOVYJPIS6970-21-98 22:53:19 Test Item Value Reference Range Interpretation Comments Eosinophils # (test code 0.1 See_Comment [A utomated message] The = Eosinophils #) system whic h generated this result tra nsmitted reference range : <=0.5. The reference r kat was not used to int erpret this result as normal/abnormal . [facility] UptownNtvbmiqYVQFMDHPLR0864-37-08 22:53:19 Test Item Value Reference Range Interpretation Comments Monocytes # (test code 0.9 See_Comment [Aut omated message] The = Monocytes #) system which generated this result tra nsmitted reference range : <=0.8. The reference r kat was not used to int erpret this result as normal/abnormal . [facility] UptownNozzdmhAJWDSOKOHR3714-79-71 22:53:19 Test Item Value Reference Range Interpretation Comments Microcyte (test code = 1+ *ABN*(06/07/15 Microcyte) 5:53 PM) [facility] UptownHgkfnqrEFUHOAJZNW1645-79-30 22:53:19 Test Item Value Reference Range Interpretation Comments Basophils # (test code 0.1 See_Comment [Aut omated message] The = Basophils #) system which generated this result tra nsmitted reference range : <=0.2. The reference r kat was not used to int erpret this result as normal/abnormal . [facility] UptownRcalmzjUIMFTYEUUD0836-58-93 22:53:19 Test Item Value Reference Range Interpretation Comments RBC (test code = RBC) 5.23 4.20-5.40 [facility] UptownRawptscVPZLKODRPA9307-30-81 22:53:19 Test Item Value Reference Range Interpretation Comments Platelet (test code = Platelet) 241 133-450 [facility] UptownJmbpwpdTABZHXLUNZ5603-05-28 22:53:19 Test Item Value Reference Range Interpretation Comments MPV (test code = MPV) 9.3 7.4-10.4 [facility] UptownNfgtxltGZOVGDVTBU5660-67-25 22:53:19 Test Item Value Reference Range Interpretation Comments RDW (test code = RDW) 16.5 11.5-14.5 [facility] UptownFaygjbiKNQKOABHEV2900-43-49 22:53:19 Test Item Value Reference Range Interpretation Comments Hct (test code = Hct) 41.0 36.0-48.0 [facility] UptownOzstnjxJMSIRYYSTM5473-09-21 22:53:19 Test Item Value Reference Range Interpretation Comments Hgb (test code = Hgb) 12.7 12.0-16.0 [facility] UptownAvgqtrsYNVYMNVHYP0831-79-12 22:53:19 Test Item Value Reference Range Interpretation Comments WBC (test code = WBC) 11.5 3.7-10.4 [facility] UptownBfyztslVJQQMZKCPB3135-15-66 22:53:19 Test Item Value Reference Range Interpretation Comments MCH (test code = MCH) 24.3 pg 27.0-31.0 [facility] UptownWogbhahZMKXOUUQEH5580-81-35 22:53:19 Test Item Value Reference Range Interpretation Comments MCHC (test code = MCHC) 31.0 32.0-36.0 [facility]JcqhtnlLAZESHNKUG1917-[facility]-35 22:53:19 Test Item Value Reference Range Interpretation Comments MCV (test code = MCV) 78.4 80.0-98.0 [facility]2015-10-09 22:53:19 Test Item Value Reference Range Interpretation Comments FTI (test code = FTI) 2.5 [facility]2015-10-09 22:53:19 Test Item Value Reference Range Interpretation Comments TSH (test code = TSH) 1.540 0.360-3.740 [facility]2015-10-09 22:53:19 Test Item Value Reference Range Interpretation Comments T3 Uptake (test code = T3 Uptake) 31 31-39 [facility]2015-10-09 22:53:19 Test Item Value Reference Range Interpretation Comments T4 (test code = T4) 8.0 4.7-13.3 [facility]2015-10-09 22:53:19 Test Item Value Reference Range Interpretation Comments Transferrin (test code = Transferrin) 256 212-360 [facility]2015-10-09 22:53:19 Test Item Value Reference Range Interpretation Comments Vitamin B12 Lvl (test code = Vitamin [phone] B12 Lvl) [facility]2015-10-09 22:53:19 Test Item Value Reference Range Interpretation Comments eGFR (test code = eGFR) 70 [facility]2015-10-09 22:53:19 Test Item Value Reference Range Interpretation Comments Glucose Lvl (test code = Glucose Lvl) 103 70-99 [facility]2015-10-09 22:53:19 Test Item Value Reference Range Interpretation Comments Albumin Lvl (test code = Albumin Lvl) 3.6 3.5-5.0 [facility]2015-10-09 22:53:19 Test Item Value Reference Range Interpretation Comments CO2 (test code = CO2) 24 24-32 [facility]2015-10-09 22:53:19 Test Item Value Reference Range Interpretation Comments Total Protein (test code = Total 7.2 6.4-8.4 Protein) [facility]2015-10-09 22:53:19 Test Item Value Reference Range Interpretation Comments Creatinine Lvl (test code = Creatinine 1.1 0.5-1.4 Lvl) [facility]2015-10-09 22:53:19 Test Item Value Reference Range Interpretation Comments BUN (test code = BUN) 14 7-22 [facility]2015-10-09 22:53:19 Test Item Value Reference Range Interpretation Comments AST (test code = AST) 12 See_Comment [Auto mated message] The system which ge nerated this result transmit arvind reference range : <=37. The reference range was not used to interpr et this result as mario l/abnormal. [facility]2015-10-09 22:53:19 Test Item Value Reference Range Interpretation Comments ALT (test code = ALT) 41 See_Comment [Auto mated message] The system which ge nerated this result transmit arvind reference range : <=65. The reference range was not used to interpr et this result as mario l/abnormal. [facility]2015-10-09 22:53:19 Test Item Value Reference Range Interpretation Comments Alk Phos (test code = Alk Phos) 100 39-136 [facility]2015-10-09 22:53:19 Test Item Value Reference Range Interpretation Comments Bili Total (test code = Bili Total) 0.2 0.2-1.3 [facility]2015-10-09 22:53:19 Test Item Value Reference Range Interpretation Comments Potassium Lvl (test code = Potassium 3.9 3.5-5.1 Lvl) [facility]2015-10-09 22:53:19 Test Item Value Reference Range Interpretation Comments Sodium Lvl (test code = Sodium Lvl) 141 135-145 [facility]2015-10-09 22:53:19 Test Item Value Reference Range Interpretation Comments Calcium Lvl (test code = Calcium Lvl) 9.0 8.5-10.5 [facility]2015-10-09 22:53:19 Test Item Value Reference Range Interpretation Comments Chloride Lvl (test code = Chloride Lvl) 109 95-109 [facility]2015-10-09 22:53:19 Test Item Value Reference Range Interpretation Comments AGAP (test code = AGAP) 11.9 10.0-20.0 [facility]2015-10-09 22:53:19 Test Item Value Reference Range Interpretation Comments A/G Ratio (test code = A/G Ratio) 1.0 0.7-1.6 [facility]2015-10-09 22:53:19 Test Item Value Reference Range Interpretation Comments B/C Ratio (test code = B/C Ratio) 13 6-25 [facility]2015-10-09 22:53:19 Test Item Value Reference Range Interpretation Comments Globulin (test code = Globulin) 3.6 2.0-4.0 [facility]2015-10-09 22:53:19 Test Item Value Reference Range Interpretation Comments Magnesium Lvl (test code = Magnesium 1.8 1.8-2.4 Lvl) [facility] UptownLmsylufMYPPCEUQNL0943-02-76 22:53:19 Test Item Value Reference Range Interpretation Comments Segs (test code = Segs) 57.5 45.0-75.0 [facility] UptownKexhqnfMGQEACYVKX8884-46-15 22:53:19 Test Item Value Reference Range Interpretation Comments Monocytes (test code = Monocytes) 7.6 2.0-12.0 [facility] UptownOlulmqwLXRETEVMBK1326-40-56 22:53:19 Test Item Value Reference Range Interpretation Comments Basophils (test code = 1.0 See_Comment [Aut omated message] The Basophils) system which ge nerated this result tra nsmitted reference range : <=1.0. The reference r kat was not used to int erpret this result as normal/abnormal . [facility] UptownLtcizsdEOPSNWWVZR0830-65-52 22:53:19 Test Item Value Reference Range Interpretation Comments Lymphocytes (test code = Lymphocytes) 32.9 20.0-40.0 [facility] UptownNauurczOUYBXURKSH2768-75-06 22:53:19 Test Item Value Reference Range Interpretation Comments Eosinophils (test code = 1.0 See_Comment [A utomated message] The Eosinophils) system which ge nerated this result tra nsmitted reference range : <=4.0. The reference r kat was not used to int erpret this result as normal/abnormal . [facility] UptownCxptgmtVYRPUKILXQ8166-36-64 22:53:19 Test Item Value Reference Range Interpretation Comments Lymphocytes # (test code = Lymphocytes 3.8 1.0-5.5 #) [facility] UptownWbfigwcKBNEVYMFWJ3841-72-44 22:53:19 Test Item Value Reference Range Interpretation Comments Segs-Bands # (test code = Segs-Bands #) 6.6 1.5-8.1 [facility] UptownAgnwsbcNJMXLRZPTZ3808-52-56 22:53:19 Test Item Value Reference Range Interpretation Comments Eosinophils # (test code 0.1 See_Comment [A utomated message] The = Eosinophils #) system whic h generated this result tra nsmitted reference range : <=0.5. The reference r kat was not used to int erpret this result as normal/abnormal . [facility] UptownGzqtbnuKWGHXRGWEF4581-02-43 22:53:19 Test Item Value Reference Range Interpretation Comments Monocytes # (test code 0.9 See_Comment [Aut omated message] The = Monocytes #) system which generated this result tra nsmitted reference range : <=0.8. The reference r kat was not used to int erpret this result as normal/abnormal . [facility] UptownGhlxzaxPIHYIIPLKH9504-78-37 22:53:19 Test Item Value Reference Range Interpretation Comments Microcyte (test code = 1+ *ABN*(06/07/15 Microcyte) 5:53 PM) [facility] UptownSgiyuqvWNQITOKKPP9778-58-46 22:53:19 Test Item Value Reference Range Interpretation Comments Basophils # (test code 0.1 See_Comment [Aut omated message] The = Basophils #) system which generated this result tra nsmitted reference range : <=0.2. The reference r kat was not used to int erpret this result as normal/abnormal . [facility] UptownBhwgkqaUXSRKIVAIQ3747-46-35 22:53:19 Test Item Value Reference Range Interpretation Comments RBC (test code = RBC) 5.23 4.20-5.40 [facility] UptownEfneywhQMGMBOLYZM7065-29-98 22:53:19 Test Item Value Reference Range Interpretation Comments Platelet (test code = Platelet) 241 133-450 [facility] UptownWomkjkgRRGIOAWOYT3903-23-12 22:53:19 Test Item Value Reference Range Interpretation Comments MPV (test code = MPV) 9.3 7.4-10.4 [facility] UptownNqgxggvTURBIHGUSJ6943-87-69 22:53:19 Test Item Value Reference Range Interpretation Comments RDW (test code = RDW) 16.5 11.5-14.5 [facility] UptownDepkulbBEKUHYECZU1993-03-00 22:53:19 Test Item Value Reference Range Interpretation Comments Hct (test code = Hct) 41.0 36.0-48.0 [facility] UptownEbuyltvSFQPJTNPJW0217-79-34 22:53:19 Test Item Value Reference Range Interpretation Comments Hgb (test code = Hgb) 12.7 12.0-16.0 [facility] UptownZaosfsxRNRDEMNNIH9478-30-51 22:53:19 Test Item Value Reference Range Interpretation Comments WBC (test code = WBC) 11.5 3.7-10.4 [facility] UptownYjxiglnPZVCKSDGOR7301-69-24 22:53:19 Test Item Value Reference Range Interpretation Comments MCH (test code = MCH) 24.3 pg 27.0-31.0 [facility] UptownTdwvrplIRATTOLMQP3046-94-07 22:53:19 Test Item Value Reference Range Interpretation Comments MCHC (test code = MCHC) 31.0 32.0-36.0 [facility] UptownRzmxnhjANQGBECZQT5239-06-10 22:53:19 Test Item Value Reference Range Interpretation Comments MCV (test code = MCV) 78.4 80.0-98.0 [facility]THY[facility] EPERR4467-34-37 22:53:19 Test Item Value Reference Range Interpretation Comments FTI (test code = FTI) 2.5 [facility]2015-10-09 22:53:19 Test Item Value Reference Range Interpretation Comments TSH (test code = TSH) 1.540 0.360-3.740 [facility]2015-10-09 22:53:19 Test Item Value Reference Range Interpretation Comments T3 Uptake (test code = T3 Uptake) 31 31-39 [facility] CenterTHYPORT[facility]ITALJNYQC6255-47-57 22:53:19 Test Item Value Reference Range Interpretation Comments T4 (test code = T4) 8.0 4.7-13.3 [facility]2015-10-09 22:53:19 Test Item Value Reference Range Interpretation Comments Transferrin (test code = Transferrin) 256 212-360 [facility]2015-10-09 22:53:19 Test Item Value Reference Range Interpretation Comments Vitamin B12 Lvl (test code = Vitamin [phone] B12 Lvl) [facility]2015-10-09 22:53:19 Test Item Value Reference Range Interpretation Comments eGFR (test code = eGFR) 70 [facility]2015-10-09 22:53:19 Test Item Value Reference Range Interpretation Comments Glucose Lvl (test code = Glucose Lvl) 103 70-99 [facility]2015-10-09 22:53:19 Test Item Value Reference Range Interpretation Comments Albumin Lvl (test code = Albumin Lvl) 3.6 3.5-5.0 [facility]2015-10-09 22:53:19 Test Item Value Reference Range Interpretation Comments CO2 (test code = CO2) 24 24-32 [place] 203065-10-09 22:53:19 Test Item Value Reference Range Interpretation Comments Total Protein (test code = Total 7.2 6.4-8.4 Protein) [facility]2015-10-09 22:53:19 Test Item Value Reference Range Interpretation Comments Creatinine Lvl (test code = Creatinine 1.1 0.5-1.4 Lvl) [facility]2015-10-09 22:53:19 Test Item Value Reference Range Interpretation Comments BUN (test code = BUN) 14 7-22 [facility]2015-10-09 22:53:19 Test Item Value Reference Range Interpretation Comments AST (test code = AST) 12 See_Comment [Auto mated message] The system which ge nerated this result transmit arvind reference range : <=37. The reference range was not used to interpr et this result as mario l/abnormal. [facility]2015-10-09 22:53:19 Test Item Value Reference Range Interpretation Comments ALT (test code = ALT) 41 See_Comment [Auto mated message] The system which ge nerated this result transmit arvind reference range : <=65. The reference range was not used to interpr et this result as mario l/abnormal. [facility]2015-10-09 22:53:19 Test Item Value Reference Range Interpretation Comments Alk Phos (test code = Alk Phos) 100 39-136 [facility]2015-10-09 22:53:19 Test Item Value Reference Range Interpretation Comments Bili Total (test code = Bili Total) 0.2 0.2-1.3 [facility]2015-10-09 22:53:19 Test Item Value Reference Range Interpretation Comments Potassium Lvl (test code = Potassium 3.9 3.5-5.1 Lvl) [facility]2015-10-09 22:53:19 Test Item Value Reference Range Interpretation Comments Sodium Lvl (test code = Sodium Lvl) 141 135-145 [facility]2015-10-09 22:53:19 Test Item Value Reference Range Interpretation Comments Calcium Lvl (test code = Calcium Lvl) 9.0 8.5-10.5 [facility]2015-10-09 22:53:19 Test Item Value Reference Range Interpretation Comments Chloride Lvl (test code = Chloride Lvl) 109 95-109 [facility]2015-10-09 22:53:19 Test Item Value Reference Range Interpretation Comments AGAP (test code = AGAP) 11.9 10.0-20.0 [facility]2015-10-09 22:53:19 Test Item Value Reference Range Interpretation Comments A/G Ratio (test code = A/G Ratio) 1.0 0.7-1.6 [facility]2015-10-09 22:53:19 Test Item Value Reference Range Interpretation Comments Transferrin (test code = Transferrin) 256 212-360 [facility]2015-10-09 22:53:19 Test Item Value Reference Range Interpretation Comments Vitamin B12 Lvl (test code = Vitamin [phone] B12 Lvl) [facility]2015-10-09 22:53:19 Test Item Value Reference Range Interpretation Comments eGFR (test code = eGFR) 70 [facility]2015-10-09 22:53:19 Test Item Value Reference Range Interpretation Comments Glucose Lvl (test code = Glucose Lvl) 103 70-99 [facility]2015-10-09 22:53:19 Test Item Value Reference Range Interpretation Comments Albumin Lvl (test code = Albumin Lvl) 3.6 3.5-5.0 [facility]2015-10-09 22:53:19 Test Item Value Reference Range Interpretation Comments CO2 (test code = CO2) 24 24-32 [facility]2015-10-09 22:53:19 Test Item Value Reference Range Interpretation Comments Total Protein (test code = Total 7.2 6.4-8.4 Protein) [facility]2015-10-09 22:53:19 Test Item Value Reference Range Interpretation Comments Creatinine Lvl (test code = Creatinine 1.1 0.5-1.4 Lvl) [facility]2015-10-09 22:53:19 Test Item Value Reference Range Interpretation Comments BUN (test code = BUN) 14 7-22 [facility]2015-10-09 22:53:19 Test Item Value Reference Range Interpretation Comments AST (test code = AST) 12 See_Comment [Auto mated message] The system which ge nerated this result transmit arvind reference range : <=37. The reference range was not used to interpr et this result as mario l/abnormal. [facility]2015-10-09 22:53:19 Test Item Value Reference Range Interpretation Comments ALT (test code = ALT) 41 See_Comment [Auto mated message] The system which ge nerated this result transmit arvind reference range : <=65. The reference range was not used to interpr et this result as mario l/abnormal. [facility]2015-10-09 22:53:19 Test Item Value Reference Range Interpretation Comments Alk Phos (test code = Alk Phos) 100 39-136 [facility]2015-10-09 22:53:19 Test Item Value Reference Range Interpretation Comments Bili Total (test code = Bili Total) 0.2 0.2-1.3 [facility]2015-10-09 22:53:19 Test Item Value Reference Range Interpretation Comments Potassium Lvl (test code = Potassium 3.9 3.5-5.1 Lvl) [facility]2015-10-09 22:53:19 Test Item Value Reference Range Interpretation Comments Sodium Lvl (test code = Sodium Lvl) 141 135-145 [facility]2015-10-09 22:53:19 Test Item Value Reference Range Interpretation Comments Calcium Lvl (test code = Calcium Lvl) 9.0 8.5-10.5 [facility]2015-10-09 22:53:19 Test Item Value Reference Range Interpretation Comments Chloride Lvl (test code = Chloride Lvl) 109 95-109 [facility]2015-10-09 22:53:19 Test Item Value Reference Range Interpretation Comments AGAP (test code = AGAP) 11.9 10.0-20.0 [facility]2015-10-09 22:53:19 Test Item Value Reference Range Interpretation Comments A/G Ratio (test code = A/G Ratio) 1.0 0.7-1.6 [facility]2015-10-09 22:53:19 Test Item Value Reference Range Interpretation Comments B/C Ratio (test code = B/C Ratio) 13 6-25 [facility]2015-10-09 22:53:19 Test Item Value Reference Range Interpretation Comments Globulin (test code = Globulin) 3.6 2.0-4.0 [facility]2015-10-09 22:53:19 Test Item Value Reference Range Interpretation Comments Magnesium Lvl (test code = Magnesium 1.8 1.8-2.4 Lvl) [id number] 22:53:19 Test Item Value Reference Range Interpretation Comments Segs (test code = Segs) 57.5 45.0-75.0 [id number] 22:53:19 Test Item Value Reference Range Interpretation Comments Monocytes (test code = Monocytes) 7.6 2.0-12.0 [id number] 22:53:19 Test Item Value Reference Range Interpretation Comments Basophils (test code = 1.0 See_Comment [Aut omated message] The Basophils) system which ge nerated this result tra nsmitted reference range : <=1.0. The reference r kat was not used to int erpret this result as normal/abnormal . [id number] 22:53:19 Test Item Value Reference Range Interpretation Comments Lymphocytes (test code = Lymphocytes) 32.9 20.0-40.0 [id number] 22:53:19 Test Item Value Reference Range Interpretation Comments Eosinophils (test code = 1.0 See_Comment [A utomated message] The Eosinophils) system which ge nerated this result tra nsmitted reference range : <=4.0. The reference r kat was not used to int erpret this result as normal/abnormal . [id number] 22:53:19 Test Item Value Reference Range Interpretation Comments Lymphocytes # (test code = Lymphocytes 3.8 1.0-5.5 #) [id number] 22:53:19 Test Item Value Reference Range Interpretation Comments Segs-Bands # (test code = Segs-Bands #) 6.6 1.5-8.1 [id number] 22:53:19 Test Item Value Reference Range Interpretation Comments Eosinophils # (test code 0.1 See_Comment [A utomated message] The = Eosinophils #) system whic h generated this result tra nsmitted reference range : <=0.5. The reference r kat was not used to int erpret this result as normal/abnormal . [id number] 22:53:19 Test Item Value Reference Range Interpretation Comments Monocytes # (test code 0.9 See_Comment [Aut omated message] The = Monocytes #) system which generated this result tra nsmitted reference range : <=0.8. The reference r kat was not used to int erpret this result as normal/abnormal . [facility] [id number] 22:53:19 Test Item Value Reference Range Interpretation Comments Microcyte (test code = 1+ *ABN*(06/07/15 Microcyte) 5:53 PM) [id number] 22:53:19 Test Item Value Reference Range Interpretation Comments Basophils # (test code 0.1 See_Comment [Aut omated message] The = Basophils #) system which generated this result tra nsmitted reference range : <=0.2. The reference r kat was not used to int erpret this result as normal/abnormal . [id number] 22:53:19 Test Item Value Reference Range Interpretation Comments RBC (test code = RBC) 5.23 4.20-5.40 [id number] 22:53:19 Test Item Value Reference Range Interpretation Comments Platelet (test code = Platelet) 241 133-450 [facility] [id number] 22:53:19 Test Item Value Reference Range Interpretation Comments MPV (test code = MPV) 9.3 7.4-10.4 [id number] 22:53:19 Test Item Value Reference Range Interpretation Comments RDW (test code = RDW) 16.5 11.5-14.5 [id number] 22:53:19 Test Item Value Reference Range Interpretation Comments Hct (test code = Hct) 41.0 36.0-48.0 [facility] [id number] 22:53:19 Test Item Value Reference Range Interpretation Comments Hgb (test code = Hgb) 12.7 12.0-16.0 [facility] [id number] 22:53:19 Test Item Value Reference Range Interpretation Comments WBC (test code = WBC) 11.5 3.7-10.4 [id number] 22:53:19 Test Item Value Reference Range Interpretation Comments MCH (test code = MCH) 24.3 pg 27.0-31.0 [facility] [id number] 22:53:19 Test Item Value Reference Range Interpretation Comments MCHC (test code = MCHC) 31.0 32.0-36.0 [facility] [id number] 22:53:19 Test Item Value Reference Range Interpretation Comments MCV (test code = MCV) 78.4 80.0-98.0 [id number] 22:53:19 Test Item Value Reference Range Interpretation Comments FTI (test code = FTI) 2.5 [facility]2015-10-09 22:53:19 Test Item Value Reference Range Interpretation Comments TSH (test code = TSH) 1.540 0.360-3.740 [facility]2015-10-09 22:53:19 Test Item Value Reference Range Interpretation Comments T3 Uptake (test code = T3 Uptake) 31 31-39 [facility]2015-10-09 22:53:19 Test Item Value Reference Range Interpretation Comments T4 (test code = T4) 8.0 4.7-13.3 [facility] Notes Date/Time Note Provider Source 2022-03-18 PROCEDURE INFORMATION: [facility] 23:42:01-00:00 Exam: XR Chest Exam date and time: 03/18/2022 11:23 PM Age: 32 years old Clinical indication: /numbness TECHNIQUE: Imaging protocol: Radiologic exam of the chest. Views: 1 view. COMPARISON: CHEST 1VIEW DX 03/13/2022 8:05 PM FINDINGS: Lungs: Lung volumes are maintained. There are no infiltrates. Pleural spaces: Unremarkable. No pleural effusio n. No pneumothorax. Heart/Mediastinum: The cardiac silhouette is nor mal in caliber. The aorta is unremarkable. Bones/joints: Unremarkable. IMPRESSION: No acute cardiopulmonary findings. Marques Davila MD On 03/18/2022 23:46:41; [id number] 2022-03-18 Radiation Dose CTDIVOL = 0 (mGy): DLP = 1045.3 ( mGy-cm) [facility] 22:50:05-00:00 PROCEDURE INFORMATION: Exam: CT Head Without Contrast Exam date and time: 03/18/2022 10:51 PM Age: 32 years old Clinical indication: /right sided numbness TECHNIQUE: Imaging protocol: Computed tomography of the hea d without contrast. Radiation optimization: All CT scans at this facility use at least one of these dose optimization techniques: automated exposure control; mA and/or kV adjustment per patient size (includes targeted e xams where dose is matched to clinical indication); or iterative reconstructio n. COMPARISON: No relevant prior studies available. RADIATION DOSE METRICS: Total DLP (mGy-cm): 1045.3 FINDINGS: There is no evidence for an acute pathologic intracranial process. There is no evidence for recent ischemic event, infarct, hem orrhage, mass lesions, mass effect or edema. The ventricles, sulci and cisterns are age-appr opriate in size and configuration. There is no e vidence for abnormality in the dumont or white matter of either cerebral hemisphere or within the post erior fossa. The paranasal sinuses are well aerated. The mastoid air cells are well aerated. There is no soft tissue abnormality IMPRESSION: There is no acute pathologic intracranial abnorm ality. Ashu Sifuentes MD On 03/18/2022 23:08:56; [id number] XK 2022-03-13 PROCEDURE INFORMATION: [facility] 20:10:53-00:00 Exam: XR Chest Exam date and time: 03/13/2022 8:05 PM Age: 31 years old Clinical indication: /cough TECHNIQUE: Imaging protocol: Radiologic exam of the chest. Views: 1 view. COMPARISON: No relevant prior studies available. FINDINGS: Lungs: Mildly hypoinflated lungs with hazy left lower lobe opacity likely subsegmental atelectasis or artifact related to pericardial fat along the cardiac apex. No definite consolidation is prese nt to suggest pneumonia. Pleural spaces: Unremarkable. No pleural effusio n. No pneumothorax. Heart/Mediastinum: Normal size heart. Bones/joints: No acute osseous abnormality. IMPRESSION: Mildly hypoinflated lungs wi th hazy left lower lobe opacity likely subsegmental atelectasis or artifact related to pericardial f at along the cardiac apex. No definite consolidation is present to suggest pne umonia. Kanu Coleman MD On 03/13/2022 20:57:24; ROXIE [id number] 2021-01-20 EXAM: XR RIGHT TIBIA 2 VIEWS [facility] 16:50:00-00:00 DATE: 01/20/2021 16:12 CDT INDICATION: - RLL swelling/cellulitis. please ev al for SQ air. COMPARISON: None. TECHNIQUE: AP and lateral radiographs of the tib ia FINDINGS: No acute fracture or malalignment is i dentified. Diffuse soft tissue swelling of the distal leg and ankle. No soft tissue emphysema. Multiple small soft tissue calcification is noted along the anterior mid to distal leg likely represent vascular calcifications.. IMPRESSION: Diffuse soft tissue swelling of the distal leg and ankle without underlying acute osseous abnormality UT SECTION: ER 2015-09-18 Single Contrast Upper GI series: [facility] 10:00:28-00:00 CLINICAL HISTORY: Gastric sleeve, evaluate for l eaks, obstruction Multiple fluoroscopic and ov erhead images of the GE junction were performed following ingestion of single contrast barium. There is prompt passage of b arium from the esophagus into the stomach. Elongated tubular appearance of the stomach is consistent with patient's history of a gastric sleeve. There is no evidence for obstruction nor any sig nificant delay in passage of barium from the stomach into the small bowel. No leakage of contrast is identified outside the lumen of the stomach. IMPRESSION: Postoperative changes relate d to gastric sleeve are evident. No obstruction nor any significant delay in passage of barium from the esophagus to the stomach and subsequently into the small bowel. Fluoroscopy Time: 0.6 minutes SL:13 2015-09-18 EXAM: CT ABDOMEN AND PELVIS WITH IV CONTRAST [facility] 00:56:07-00:00 DATE: Sep 18, 2015 12:56:07 AM CLINICAL INDICATIONS: Recent spleen gastrectomy. Upper abdominal pain and nausea. TECHNIQUE: Multiple helical of abdomen and pelvis from the level of the domes of the diaphragm through the symphysis pubis after the administration of intravenous contrast. Axial, sagittal and coronal r eformats are provided. Delayed images through e abdomen were acquired. COMPARISON: CT abdomen pelvis 08/26/2015. FINDINGS: Bilateral lung bases are clear without pleural e ffusions. The liver, spleen, gallbladd er, bilateral adrenal glands, pancreas, and bilateral kidneys are within normal limits. No subdiaphragmatic lymphade nopathy is seen. No intraperitoneal free air or fluid is identified. The large and small bowel are normal in caliber. . Sleeve gastrectomy is again seen. Residual stranding a long the staple lines is lik lisa postoperative and decreased since prior examination. No extraluminal air or fluid is seen. No fluid collection is identified. A few descending and sigmoid colon diverticu la are seen without focal in flammation. Descending and sigmoid colon wall prominence is likely related to nondistention. The appendix is normal. No osseous destructive lesio ns are seen. Postsurgical changes are seen in the upper anterior abdominal wall without collection. IMPRESSION: 1. 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 2. Left colon diverticulosis without evidence of diverticulitis. SL: 2015-08-26 CT ABDOMEN AND PELVIS WITH CONTRAST [facility] 12:51:07-00:00 INDICATION: History of recen t gastric sleeve surgery, epigastric pain with eating and drinking COMPARISON: None FINDINGS: ABDOMEN: The visible lung bases are c lear. The liver, spleen, pancreas, gallbladder, adrenal glands, and kidneys appear normal. There are postoperative changes of the stomach, compatible with recent history of g astric sleeve surgery. There is mild stranding of the subcutaneous fat of the abdomen, associated mild subcutaneous emphysema. There is no pneumoperitoneum. No free fluid or abnormal fluid collections a re seen. The stomach and bow el loops are otherwise unremarkable. Orally ingested contrast is seen within the small bowel; therefore, there is no gastric outlet obstruction. No abdominal lymphadenopathy is identified. PELVIS: The bladder, uterus, and adn exa are unremarkable. No pelvic mass or lymphadenopathy are identified. BONES: No acute bony abnormalities are seen. IMPRESSION: Postoperative changes of the stomach, compatible with recent gastric sleeve surgery. Otherwise, no acute abdominal or pelvic abnormalities are visualized. SL: 16 2015-08-16 Stomach upper GI study [facility] 07:39:54-00:00 CLINICAL HISTORY: Gastric sleeve, evaluate for l eaks, obstruction. Multiple fluoroscopic images of the GE j unction were performed for evaluation. There is prompt passage of c ontrast from the esophagus into the stomach. Elongated tubular appearance of the stomach is consistent with patient's history of a gastric sleeve. There is no eviden ce for obstruction. No leaka ge of contrast is identified outside the lumen of the stomach. Fluoroscopy Time: 0.4 minutes. SL: 2015-06-24 Gastric emptying study. [facility] 10:30:00-00:00 CLINICAL HISTORY: Abnormality on other imaging s tudy. GERD TECHNIQUE: 1 mCi of sulfur c olloid meal was administered orally. Images were performed in anterior projection and an excretion curve plotted. FINDINGS: There is prompt ac tivity identified within the stomach and prompt excretion into the small bowel thereafter. The slope of the excretion curve is within normal limits. The T half life is 79 minutes. (Normal range of 45min- 110min). % excretion at approx. 48 minutes: Essentially n o excretion % excretion at approx. 80 minutes: 49% % excretion at approx. 116 minutes: 81% % excretion at approx. 173 minutes: 89% % excretion at approx. 236 minutes: 98% IMPRESSION: Normal gastric emptying study. SL:2015-06-10 Barium Swallow/Video esophagram: [facility] 09:36:00-00:00 CLINICAL HX: GERD, preop for gastric sleeve TECHNIQUE: Thin barium was u tilized for prone and LPO images. Thick barium was utilized for upright imaging of the esophagus and pharynx. Hamburger meat with barium paste was given to evaluate motility with solids. FINDINGS: There is no delay in passage of bolus from the pharynx into the esophagus. The cricopharyngeus relaxes normally. There is no evidence for a cricopharyngeal bar or Zenker's diverticulum. Prone and LPO images of the esophagus reveal a small hiatal hernia at the GE junction approximately 2 cm in size. Mild to moderate gastroesophageal reflux. Mild nonspecific esophageal dysmotility is als o noted. Few tertiary contractions are visualize d Upright images with thick ba rium reveal no significant dysmotility. No mass lesions or strictures are visualized. Moderate gastroesophageal reflux. Subsequently 2 separate swal lows of a small piece of hamburger meat and barium were fluoroscopically followed through the length of esophagus. Piecemeal deglutition is noted. There is mild delay in pass age of the solid barium bolu s from the pharynx to the esophagus and subsequently into the stomach. The patient is able to clear the residual solids from the esophagus following ingestion of additional thin barium. Overhead image performed at the conclusion of the procedure reveals retained food products and majority of barium to remain within the stomach on the upright study. IMPRESSION: Small hiatal hernia is visua lized at the GE junction. Moderate gastroesophageal reflux. Mild nonspecific esophageal dysmotility with respect to liquids on the recumbent exam and with respect to solids on the upright study. Changes are at least partly related to piecemeal deglutition. Apparent delay in passage of barium from the stomach into proximal small bowel. Gastric emptying study may be performed as clinically indicated. Fluoroscopy Time: 3.1 minutes. SL:13
[2023-02-24] MEDS ORDERED: NA CHLORIDE 0.9% 1,000 ML ONE (20:08)
[2023-02-24 20:23] LABS: Specific Gravity > 1.030 (1.005-1.030)
[2023-02-24 20:23] LABS: Absolute Lymphocytes (CBC) 2.7 K/uL (0.7-4.9); Hematocrit 40.8 % (36.0-45.0); Lymphocytes % 30.5 % (15.3-44.8); MCV 76.9 fL (80-100); MPV 8.7 fL (7.6-11.3)
[2023-02-24 20:26] LABS: Specific Gravity > 1.030 (1.005-1.030); Urine Bacteria None Seen /HPF (<20); Urine Bilirubin NEGATIVE (Negative); Urine Blood 1+ (Negative); Urine Clarity Turbid (Clear); Urine Color Yellow (Yellow); Urine Crystals Unidentified Few /HPF (None Seen); Urine Glucose NEGATIVE (Negative); Urine Mucus Slight /HPF (None Seen); Urine Protein TRACE (Negative); Urine RBC <5 /HPF (None Seen); Urine Urobilinogen Normal (Normal); Urine pH 5.5 (5.0-7.0)
[2023-02-24 20:31] LABS: Albumin 3.4 g/dL (3.4-5.0); Bilirubin Total 0.1 mg/dL (0.2-1.0); Protein, Total 6.8 g/dL (6.4-8.2)
--- NOTE | 2023-02-24 21:36 | ER ---
Nurse's Notes [facility] Name: Kyra Quispe Age: 32 yrs Sex: Female : 1990 Arrival Date: 02/24/2023 Time: 18:27 Bed 10 Private MD: Diagnosis: Dizziness and giddiness;UTI/ Urinary tract infection, site not specified;Acute lower UTI, diabetes mellitus type 1, generalized dizziness Presentation: 02/24 18:49 Chief complaint: Patient states: BGL has been high for 4 days. C/O dizziness and ld1 increased thirst. Coronavirus screen: At this time, the client does not indicate any symptoms associated with coronavirus-19. Ebola Screen: No symptoms or risks identified at this time. Initial Sepsis Screen: Does the patient meet any 2 criteria? No. Patient's initial sepsis screen is negative. Does the patient have a suspected source of infection? No. Patient's initial sepsis screen is negative. Risk Assessment: Do you want to hurt yourself or someone else? Patient reports no desire to harm self or others. Onset of symptoms was February 24, 2023. 18:49 Method Of Arrival: Ambulatory ld1 18:49 Acuity: MONE 3 ld1 Triage Assessment: 18:49 General: Appears in no apparent distress. comfortable, Behavior is calm, cooperative, ld1 appropriate for age. Pain: Denies pain. EENT: No signs and/or symptoms were reported regarding the EENT system. Neuro: Level of Consciousness is awake, alert, obeys commands, Oriented to person, place, time, situation. Neuro: Reports dizziness. Cardiovascular: Capillary refill < 3 seconds Patient's skin is warm and dry. Respiratory: Airway is patent Respiratory effort is even, unlabored. GI: Abdomen is round non-distended. : No signs and/or symptoms were reported regarding the genitourinary system. Derm: No signs and/or symptoms reported regarding the dermatologic system. Musculoskeletal: No signs and/or symptoms reported regarding the musculoskeletal system. Historical: - Allergies: 18:49 Latex, Natural Rubber; ld1 18:49 Tessalon Perles; ld1 - PMHx: 18:49 Anxiety; diabetes mellitus; Ovarian cyst; Seizure; ld1 - PSHx: 18:49 Cholecystectomy; gastric sleeve; knee; ld1 - Immunization history:: Adult Immunizations up to date, Client reports receiving the 2nd dose of the Covid vaccine. - Social history:: Smoking status: Patient denies any tobacco usage or history of. Patient/guardian denies using alcohol. - Family history:: not pertinent. Screenin:28 [facility] ED Fall Risk Assessment (Adult) History of falling in the last 3 months, mb9 including since admission No falls in past 3 months (0 pts) Confusion or Disorientation No (0 pts) Intoxicated or Sedated No (0 pts) Impaired Gait No (0 pts) Mobility Assist Device Used No (0 pt) Altered Elimination No (0 pt) Score/Fall Risk Level 0 - 2 = Low Risk Oriented to surroundings, Maintained a safe environment, Educated pt \T\ family on fall prevention, incl call for assistance when getting out of bed. Abuse screen: Denies threats or abuse. Nutritional screening: No deficits noted. Tuberculosis screening: No symptoms or risk factors identified. Assessment: 19:38 General: Appears in no apparent distress. Behavior is calm, cooperative. Pain: Denies mb9 pain. Neuro: Reports dizziness, since 4 days ago. Neuro: Level of Consciousness is awake, alert, obeys commands, Oriented to person, place, time, situation, Appropriate for age. Respiratory: Airway is patent Respiratory effort is even, unlabored, Respiratory pattern is regular, symmetrical. Derm: Skin is pink, warm \T\ dry. Musculoskeletal: Range of motion: intact in all extremities. 21:57 Reassessment: No changes from previously documented assessment. Patient and/or family mb9 updated on plan of care and expected duration. Pain level reassessed. Patient is alert, oriented x 3, equal unlabored respirations, skin warm/dry/pink. Vital Signs: 18:49 Pulse 85; Resp 18; Temp 97.7(TE); Pulse Ox 97% on R/A; Weight 144.24 kg; Height 5 ft. 7 ld1 in. ; Pain 0/10; 18:49 BP 143 / 79; ld1 19:37 BP 109 / 66; Pulse 73; Resp 18; Pulse Ox 98% on R/A; mb9 21:04 BP 114 / 69; Pulse 78; Resp 16; Pulse Ox 100% on R/A; mb9 18:49 Body Mass Index 49.81 (144.24 kg, 170.18 cm) ld1 18:49 Pain Scale: Adult ld1 ED Course: 18:30 Patient arrived in ED. im 18:49 Triage completed. ld1 18:49 Arm band placed on right wrist. ld1 18:54 Umesh Baird MD is Attending Physician. kdr 19:23 Vicky Dye, RN is Primary Nurse. mb9 19:23 Placed in gown. Bed in low position. Call light in reach. Side rails up X 1. Client mb9 placed on continuous cardiac and pulse oximetry monitoring. NIBP monitoring applied. 20:09 Inserted saline lock: 22 gauge in left antecubital area, using aseptic technique. Blood rv1 collected. 20:10 CMP Sent. rv1 20:10 CBC with Diff Sent. rv1 20:16 CBC with Diff Sent. rv1 20:16 CMP Sent. rv1 20:16 Urinalysis w/ reflexes Sent. rv1 20:16 Test, Urine Sent. rv1 20:22 Attending Physician role handed off by Umesh Baird MD sp4 20:22 Jose Soria MD is Attending Physician. sp4 21:05 No provider procedures requiring assistance completed. mb9 21:57 IV discontinued, intact, bleeding controlled, No redness/swelling at site. Pressure mb9 dressing applied. Administered Medications: 20:20 Drug: NS 0.9% IV 1000 ml Route: IV; Rate: 1 bolus; Site: left antecubital; mb9 Medication: 19:24 VIS not applicable for this client. mb9 Outcome: 21:35 Discharge ordered by . sp4 21:57 Discharged to home ambulatory. mb9 21:57 Condition: stable 21:57 Discharge instructions given to patient, Instructed on discharge instructions, follow up and referral plans. Demonstrated understanding of instructions, follow-up care, medications, Prescriptions given X 1. 21:57 Patient left the ED. mb9 Signatures: Umesh Baird MD MD kdr Sims, Lauren, RN RN ld1 Vicky yDe, CY RN mb9 Fe Mark rv1 Jose Soria MD MD sp4 Ashley You Corrections: (The following items were deleted from the chart) 18:51 18:49 Chief complaint: Patient states: BGL has been high for 4 days. C/O dizziness ld1 ld1
--- NOTE | 2023-02-24 21:36 | EDPHYS ---
Physician Documentation [facility] Name: yKra Quispe Age: 32 yrs Sex: Female : 1990 Arrival Date: 02/24/2023 Time: 18:27 Bed 10 Private MD: ED Physician Jose Soria HPI: 02/24 20:22 This 32 yrs old Other Race Female presents to ER via Ambulatory with complaints of sp4 Dizziness. 21:32 32-year-old female presents with complaint of dizziness and elevated blood sugar for sp4 the past 3 days. Patient states yesterday blood sugar was above 300.. Historical: - Allergies: 18:49 Latex, Natural Rubber; ld1 18:49 Tessalon Perles; ld1 - PMHx: 18:49 Anxiety; diabetes mellitus; Ovarian cyst; Seizure; ld1 - PSHx: 18:49 Cholecystectomy; gastric sleeve; knee; ld1 - Immunization history:: Adult Immunizations up to date, Client reports receiving the 2nd dose of the Covid vaccine. - Social history:: Smoking status: Patient denies any tobacco usage or history of. Patient/guardian denies using alcohol. - Family history:: not pertinent. ROS: 21:32 Constitutional: Negative for fever, chills, and weight loss, positive for dizziness sp4 Eyes: Negative for injury, pain, redness, and discharge, ENT: Negative for injury, pain, and discharge, Neck: Negative for injury, pain, and swelling, Cardiovascular: Negative for chest pain, palpitations, and edema, Respiratory: Negative for shortness of breath, cough, wheezing, and pleuritic chest pain, Abdomen/GI: Negative for abdominal pain, nausea, vomiting, diarrhea, and constipation, Back: Negative for injury and pain, : Negative for injury, bleeding, discharge, and swelling, MS/Extremity: Negative for injury and deformity, Skin: Negative for injury, rash, and discoloration, Neuro: Negative for headache, weakness, numbness, tingling, and seizure, Psych: Negative for depression, anxiety, Allergy/Immunology: Negative for hives, rash, and allergies Endocrine: Negative for neck swelling, polydipsia, polyuria, polyphagia, and weight changes Hematologic/Lymphatic: Negative for swollen nodes, abnormal bleeding, and unusual bruising Exam: 21:32 Constitutional: This is a well developed, well nourished patient who is awake, alert, sp4 and in no acute distress. Head/Face: Normocephalic, atraumatic. Eyes: Pupils equal round and reactive to light, extra-ocular motions intact. Lids and lashes normal. Conjunctiva and sclera are not injected. Cornea within normal limits. Periorbital areas with no swelling, redness, or edema. ENT: Nares patent. No nasal discharge, no septal abnormalities noted. Tympanic membranes are normal and external auditory canals are clear. Oropharynx with no redness, swelling, or masses, exudates, or evidence of obstruction, uvula midline. Mucous membranes moist. Neck: Trachea midline, no thyromegaly or masses palpated, and no cervical lymphadenopathy. Supple, full range of motion without nuchal rigidity, or vertebral point tenderness. Chest/axilla: Normal chest wall appearance and motion. Nontender with no deformity. No lesions are appreciated. Cardiovascular: Regular rate and rhythm with a normal S1 and S2. No gallops, murmurs, or rubs. Normal PMI, no JVD. No pulse deficits. Respiratory: Lungs have equal breath sounds bilaterally, clear to auscultation and percussion. No rales, rhonchi or wheezes noted. No increased work of breathing, no retractions or nasal flaring. Abdomen/GI: Soft, non-tender, with normal bowel sounds. No distension or tympany. No guarding or rebound. No evidence of tenderness throughout. Back: No spinal tenderness. No costovertebral tenderness. Skin: Warm, dry with normal turgor. Normal color with no rashes, no lesions, and no evidence of cellulitis. MS/ Extremity: Pulses equal, no cyanosis. Neurovascular intact. Full, normal range of motion. Neuro: Awake and alert, GCS 15, oriented to person, place, time, and situation. Cranial nerves II-XII grossly intact. Motor strength 5/5 in all extremities. Sensory grossly intact. Psych: Awake, alert, with orientation to person, place and time. Behavior, mood, and affect are within normal limits Vital Signs: 18:49 Pulse 85; Resp 18; Temp 97.7(TE); Pulse Ox 97% on R/A; Weight 144.24 kg; Height 5 ft. 7 ld1 in. ; Pain 0/10; 18:49 BP 143 / 79; ld1 19:37 BP 109 / 66; Pulse 73; Resp 18; Pulse Ox 98% on R/A; mb9 21:04 BP 114 / 69; Pulse 78; Resp 16; Pulse Ox 100% on R/A; mb9 18:49 Body Mass Index 49.81 (144.24 kg, 170.18 cm) ld1 18:49 Pain Scale: Adult ld1 MDM: 20:38 Patient medically screened. sp4 21:32 Differential diagnosis: generalized weakness, hyperventilation, hypovolemia, idiopathic sp4 dizziness, near-syncope, . Data reviewed: vital signs, nurses notes, lab test result(s). Consideration of Admission/Observation Escalation of care including admission/observation considered. ED course: Patient's blood sugar is actually normal at 82, patient was given IV fluids, patient care was accepted from daytime provider at 8 PM.. Patient has a mild case of UTI will prescribe Macrobid for the next 5 days we will advised to continue home insulin and all other home medications.. 02/24 19:05 Order name: Glucose, Ancillary Testing; Complete Time: 19:45 EDMS 02/24 19:45 Order name: CBC with Diff; Complete Time: 21:11 kdr 02/24 19:45 Order name: CMP; Complete Time: 21:11 kdr 02/24 19:45 Order name: Test, Urine; Complete Time: 21:11 kdr 02/24 19:45 Order name: Urinalysis w/ reflexes; Complete Time: 21:11 kdr Administered Medications: 20:20 Drug: NS 0.9% IV 1000 ml Route: IV; Rate: 1 bolus; Site: left antecubital; mb9 Disposition Summary: 02/24/23 21:35 Discharge Ordered Location: Home sp4 Problem: new sp4 Symptoms: have improved sp4 Condition: Stable sp4 Diagnosis - Dizziness and giddiness sp4 - UTI/ Urinary tract infection, site not specified sp4 - Acute lower UTI, diabetes mellitus type 1, generalized dizziness sp4 Followup: sp4 - With: Private Physician - When: 5 - 6 days - Reason: Recheck today's complaints Discharge Instructions: - Discharge Summary Sheet sp4 - Urinary Tract Infection, Adult sp4 Prescriptions: - Macrobid 100 mg Oral Capsule - take 1 capsule by ORAL route every 12 hours for 10 days; 20 capsule; Refills: sp4 0, Product Selection Permitted Signatures: Dispatcher [employer] Umesh Carty MD MD kdr Lor Emerson RN RN ld1 Vicky Dye RN RN mb9 Jose Soria MD MD sp4
[2023-02-24 22:19] VITALS: TEMP 97.7
[2023-02-24 22:23] VITALS: BP 114/69; O2SAT 100
== END 2023-02-24 21:57 | disposition home or self-care (01) ==
LOC: ER 18:27
DX: N39.0 Urinary tract infection, site not specified (principal); E10.9 Type 1 diabetes mellitus without complications; Z88.8 Allergy status to other drugs, medicaments and biological substances; Z91.040 Latex allergy status; Z91.048 Other nonmedicinal substance allergy status
CPT/HCPCS: 85025; 81001; 36415; 81025; 82947; 80053; J7030; 99284

== ENCOUNTER 2023-04-10 13:58 | Emergency (ER) | payer OTHER ==
--- NOTE | 2023-04-10 14:55 | RAD REPORT ---
EXAM DESCRIPTION: RAD - Hip Left 2 View - 04/10/2023 2:35 pm CLINICAL HISTORY: PAIN COMPARISON: No comparisons TECHNIQUE: Left hip, AP and frogleg views of the left hip. FINDINGS: There is no fracture or dislocation. No acute or destructive bony process seen. IMPRESSION: No acute findings of the left hip.
--- NOTE | 2023-04-10 14:55 | RAD REPORT ---
EXAM DESCRIPTION: RAD - Pelvis - 04/10/2023 2:35 pm CLINICAL HISTORY: PAIN COMPARISON: Transvaginal Study Probe dated 01/21/2023; Hip Left 2 View dated 04/10/2023 TECHNIQUE: Single AP view of the pelvis. FINDINGS: The visualized pelvic ring is intact. No suspicious osseous lesions. No significant degene rative changes or erosions of the hip joints. Sacral fusion screws traversing the left sacroiliac anil nt. Other pelvic joints are unremarkable. Visualized aspects of the abdomen and soft tissues are unre markable. IMPRESSION: No acute osseous abnormality of the bony pelvis.
--- OUTSIDE RECORDS SUMMARY | 2023-04-10 15:21 | XMS REPORT | Continuity of Care Document ---
:1990 Author Organization [facility] t Address [address] [place] [address] [address] [place] [address] Care Team Providers Name Role Phone FAWAD ALDRICH Primary Care Physician Unavailable RADIOLOGY Attending Clinician Unavailable Oxana Chan Attending Clinician FAWAD ALDRICH Attending Clinician Unavailable Fawad Cope Attending Clinician DOUG HAMMER Attending Clinician Unavailable Doug Gamble Attending Clinician PAM COLE Attending Clinician Unavailable Anahi Hoang MD Attending Clinician DA CHAPIN Attending Clinician Unavailable GC_[email or web address] Attending Clinician Unavailable JENNY FLETCHER Attending Clinician Unavailable Steff Bradford MD Attending Clinician BRIE GALVAN Attending Clinician Unavailable Kaycee Longo Attending Clinician [phone] LEYLA GALVAN Attending Clinician Unavailable Thania Bolanos Attending Clinician THANIA BOLANOS Attending Clinician Unavailable Sukhwinder Thomas Attending Clinician SUKHWINDER THOMAS Attending Clinician Unavailable STEFF BRADFORD Attending Clinician Unavailable JANENE MASSEY Attending [...] Attending Clinician DOMINGO MILLER Attending Clinician Unavailable MICHELLE MARINO Attending Clinician [...] Attending Clinician DOUG HAMMER Admitting Clinician Unavailable _SWHANBWH_Diggs_R Admitting Clinician Unavailable González Flannery Admitting Clinician Tommy Del Toro Admitting Clinician Payers Payer Name Policy Type Policy Number Effective Date Expiration Date Davie [place] [id number] 2020 2021 [employer] O[employer] 00:00:00 00:00:00 EXCEPT [facility] [id number] [facility] [id number] 2022 00:00:00 [employer] [id number] 2022 OUT OF NETWORK 00:00:00 TP68 [facility] [id number] 2021 PROGRAM 00:00:00 [place] [id number] 2021 [facility] 00:00:00 PROGRAM (MEDICAID) [facility] [id number] 2020 00:00:00 Problems Condition Condition Condition Status Onset Resolution Last Treating Co mments Source Name Details Category Date Date Treatment Clinician Date FACE/RT FACE/RT Diagnosis Active 2022-03-19 Memoria SIDE SIDE 03-18 13:51:00 l NUMBNESS NUMBNESS 00:00: Garrett n Active 00 03/18/2022 [facility] FEVER, FEVER, Diagnosis Active 2022-03-13 Me moria BODY PAIN BODY PAIN 03-13 21:46:00 l Active 00:00: Dav 03/13/[address] [place] [address] Hypertensi Hypertensi Problem Active P rivia ve [...] 01-20 15:44:00 l 01/20/2021 00:00: Garrett lynch [address] Chronic Chronic Disease Active Univers left hip left hip 03-17 ity of pain pain 00:00: [address] Branch INTRACTABL Diagnosis Active 2015-10-17 Memoria E VOMITING INTRACTABL 09-02 16:18:00 l S/P E VOMITING 00:00: Garrett lynch GASTRIC S/P 00 SLEEVE GASTRIC SLEEVE Active 09/02/2015 [facility] VOMITTING VOMITTING Diagnosis Active 2015-09-17 Memoria Active 09-02 18:24:00 l 09/02/2015 00:00: Garrett lynch 00 [facility] ABDOMINAL ABDOMINAL Diagnosis Active 2014-082015-08-26 Memoria PAIN PAIN 10-27 11:29:00 l Active 00:00: Dav 08/26/2015 00 [facility] UNK UNK Diagnosis Active 2014-082015-08-06 Mem oria Active 10-06 12:24:00 l 08/05/2015 00:00: Garrett lynch 00 [facility] E66.01 E66.01 Diagnosis Active 2014-082015-08-16 Me moria Active 10-06 14:56:00 l 08/05/2015 00:00: Garrett lynch 00 [facility] MORBID MORBID Diagnosis Active 2014-082015-06-24 Me moria OBESITY OBESITY 0-23 15:17:00 l Active 00:00: Dav 06/21/2015 00 [facility] K21.9; K21.9; Diagnosis Active 2014-082015-06-24 M emoria GASTRO-ESO GASTRO-ESO 0- 09:25:00 l PHAGEAL PHAGEAL 00:00: Dav REFLUX REFLUX 00 DISEASE DISEASE Active 06/19/2015 [facility] K21.0 K21.0 Diagnosis Active 2015-06-10 Mem oria Active 05-07 06:23:00 l 05/07/2015 00:00: Garrett lynch 00 [facility] Bipolar Bipolar Problem Resolve 2015-09-22 M emoria (qualifier (qualifier d 02:57:40 l value) value) Dav Resolved Problem 09/22/2015 [facility] Obesity Obesity Problem Resolve 2015-09-22 Memoria (disorder) (disorder) d 02:57:40 l Resolved [place] Problem 09/22/2015 [facility] Acid Acid Problem Active 2015-09-22 Memor ia reflux reflux 02:57:40 l (finding) (finding) Herm kailash Active Problem 09/22/2015 [facility] Pain in Pain in Problem Active 2022-03-21 Me moria lower limb lower limb 21:09:41 l (finding) (finding) Herm kailash Active Problem 03/21/2022 [facility] GASTRO-ESO GASTRO-ES Diagnosis Active 2015-06-10 Memoria PHAGEAL OPHAGEAL 06:23:00 l REFLUX REFLUX Dav DISEASE DISEASE WITH ES WITH ES Active [facility] MORBID MORBID Diagnosis Active 2015-08-16 M emoria (SEVERE) (SEVERE) 14:56:00 l OBESITY OBESITY Dav DUE TO DUE TO EXCESS CA EXCESS CA Active [facility] VOMITING, VOMITING, Diagnosis Active 2015-10-17 Memoria UNSPECIFIE UNSPECIFIE 16:18:00 l D D Active [facility] History of Past Illness Condition Condition Condition Status Onset Resolution Last Treating Co mments Source Name Details Category Date Date Treatment Clinician Date 2018-nCoV 2018-nCoV Problem 2022-03-21 2022-03-21 Memoria acute acute 03-19 21:09:41 21:09:41 l respirator respirator 06:21: He rmann y disease y disease 00 03/19/2022 03/21/2022 [facility] Paresthesi Paresthes Problem 2022-03-21 2022-03-21 Memoria a of skin ia of skin 03-19 21:09:41 21:09:41 l 03/19/2022 06:21: Garrett lynch 03/21/2022 00 [facility] Hypokalemi Hypokalem Problem 2022-03-21 2022-03-21 Memoria a ia 03-19 21:09:41 21:09:41 l 03/19/2022 06:21: Garrett lynch 2 [facility] Discharge Discharge Problem 2014-082015-08-29 2015-08-29 Memoria Diagnosis: Diagnosis: 10-27 03:22:03 03:22:03 l Abdominal Abdominal 06:00: Rhina linder pain pain 00 08/26/201508/29/ [address] [place] [address] Allergies, Adverse Reactions, Alerts Allergy Allergy Status [...] l Dav Tessalon Tessalon Active Memori a Perles Perles l Dav Latex Allergy Active [facility] to Medical substanc e Social History Social Habit Start Date Stop Date Quantity Comments Source Gender identity [facility] Tobacco use and 2023-01-19 2023-01-19 Smokeless [facility] y of exposure 00:00:00 00:00:00 tobacco non-user [facility] History of Social 2022-11-03 2022-11-[address] function 00:00:00 00:00:00 Hospital Exposure to 2022-08-16 2022-08-26 Not sure [facility] SARS-CoV-2 (event) 00:00:00 13:07:00 [facility] Alcohol intake 2022-06-11 2022-06-11 Current [facility] 00:00:00 00:00:00 non-drinker of Hospital alcohol (finding) Social History 2015-08-15 2015-08-15 [facility] 18:23:25 18:23:25 Sex Ass[birth year] At [birth year] [facility] 00:00:00 00:00:00 Hospital Smoking Status Start Date Stop Date Source Tobacco smoking consumption [facility] Never smoked tobacco [facility] Medications Ordered Filled Start Stop Current Ordering Indication Dosage Frequency Signature Comments Components Source Medication Medication Date Date Medication? Clinician (SIG) Name Name amitriptyli 2023-0 2023- No 100mg Take 1 Un jo ne 100 mg 5-23 05-23 tablet by ity of tablet 10:59: 00:00 mouth. [place] 19 :00 Medical Branch amitriptyli 3-0 2023- No 100mg Take 1 Un jo ne 100 mg 5-23 05-23 tablet by ity of tablet 10:59: 00:00 mouth. [place] 19 :00 Medical Branch buPROPion 2022-0 2023- No 300mg Take 1 Univ ers XL 300 mg 5-23 05-23 tablet by ity of 24 hr 10:59: 00:00 mouth. [place] tablet 16 :00 Medical Branch busPIRone 2023-0 2023- No 10mg Take 1 Unive rs 10 mg 5-23 05-23 tablet by ity of tablet 10:59: 00:00 mouth. [place] 16 :00 Medical Branch buPROPion 3-0 3- No 300mg Take 1 Univ ers XL 300 mg 5-23 05-23 tablet by ity of 24 hr 10:59: 00:00 mouth. [place] tablet 16 :00 Medical Branch busPIRone 3-0 2023- No 10mg Take 1 Unive rs 10 mg 5-23 05-23 tablet by ity of tablet 10:59: 00:00 mouth. [place] 16 :00 Medical Branch furosemide 3-0 2023- No 40mg Take 1 Univ ers 40 mg 5-23 05-23 tablet by ity of tablet 10:59: 00:00 mouth. [place] 09 :00 Medical Branch furosemide 3-0 2023- No 40mg Take 1 Univ ers 40 mg 5-23 05-23 tablet by ity of tablet 10:59: 00:00 mouth. [place] 09 :00 Medical Branch insulin 3-0 2023- No inject Univers aspart 5-23 05-23 under the ity of RAPID 100 10:59: 00:00 skin. [place] unit/mL 06 :00 Medical injection Branch insulin 3-0 2023- No inject Univers aspart 5-23 05-23 under the ity of RAPID 100 10:59: 00:00 skin. [place] unit/mL 06 :00 Medical injection Branch insulin 3-0 2023- No inject Univers glargine 5-23 05-23 under the ity o f 100 unit/mL 10:59: 00:00 skin. [place] injection 03 :00 Medical Branch insulin 3-0 2023- No inject Univers glargine -19 01-23 under the ity o f 100 unit/mL 10:59: 00:[place] injection 03 :00 [facility] Branch metFORMIN 3-0 2023- No 850mg Take 1 Univ ers 850 mg 5-23 05-23 tablet by ity of tablet 10:58: 00:00 mouth. [place] 57 :00 [facility] Branch metFORMIN 3-0 2023- No 850mg Take 1 Univ ers 850 mg 5-23 05-23 tablet by ity of tablet 10:58: 00:00 mouth. [place] 57 :00 [facility] Branch SERTraline 2022-0 Yes [id number] 50mg Take 1 Unive rs (ZOLOFT) 50 5-23 tablet by ity of mg tablet 10:31: mouth in [place] [address] the Medical morning. Branch Indication s: depression levETIRAcet 2022-0 Yes 2716 500mg Take 1 Uni vers am (KEPPRA) 5-23 tablet by ity of 500 mg 10:31: mouth in [place] tablet the Medical morning Branch and 1 tablet at noon and 1 tablet in the evening. Indication s: seizures hydrOXYzine 2022-0 Yes 25mg Take 1 Univ ers 25 mg 5-23 tablet by ity of tablet 10:31: mouth [place] 26 every 8 Medical (eight) Branch hours [...] ity of mg tablet 10:31: mouth in [place] [address] the Medical morning. Branch Indication s: depression levETIRAcet 2022-0 Yes 2716 500mg Take 1 Uni vers am (KEPPRA) 5-23 tablet by ity of 500 mg 10:31: mouth in [place] tablet 26 the Medical morning Branch and [...] 00 :00 Medical Branch albuterol 2021-08 Yes [id number] 2{puff} Inhale 2 Univers 90 2-28 Puffs ity of mcg/actuati 00:00: every 4 Imer as on inhaler 00 (four) Medical hours as Branch needed for Wheezing or Shortness of Breath. albuterol 2021-08 Yes [id number] 2{puff} Inhale 2 Univers 90 2-28 Puffs ity of mcg/actuati 00:00: every 4 Imer as on inhaler 00 (four) Medical hours as Branch needed for Wheezing or Shortness of Breath. albuterol 2021-08 Yes [id number] 2{puff} Inhale 2 Univers 90 2-28 Puffs ity of mcg/actuati 00:00: every 4 Imer as on inhaler 00 (four) Medical hours as Branch needed for Wheezing or Shortness of Breath. albuterol 2021-08 Yes [id number] 2{puff} Inhale 2 Univers 90 2-28 Puffs ity of mcg/actuati 00:00: every 4 Imer as on inhaler 00 (four) Medical hours as Branch needed for Wheezing or Shortness of Breath. cephalexin 2021-08- No 500mg [id number] Take 1 Methodi (Keflex) 0-13 10-19 [id number] capsule s t 500 MG 00:00: 04:59 [...] to 5 days. cephalexin 2021-08- No 500mg Q.[id number] Take 1 [facility] (Keflex) 0-13 10- [id number] capsule s t 500 MG 00:00: 04:59 [...] to 5 days. cephalexin 2021-08- No 500mg Q.[id number] Take 1 [facility] (Keflex) 0-13 10-19 [id number] capsule s t 500 MG 00:00: 04:59 [...] to 5 days. cephalexin 2021-08 No 500mg Q.[id number] Take 1 [facility] (Keflex) 0-13 06-17 [id number] capsule s t 500 MG 00:00: 04:59 3D (500 mg [facility]osp[facility] capsule 00 :00 total) by l mouth 3 (three) times a day for 5 days. ondansetron 2021-08- No 4mg Q8H Take 1 Met hodi ODT 0-13 19 tablet (4 st (ZOFRAN-ODT 00:00: 04:59 mg total) Hospita ) 4 MG 00 :00 by mouth l disintegrat every 8 ing tablet (eight) hours as needed for nausea or vomiting for up to 5 days. cephalexin 2021-08 No 500mg Q.[id number] Take 1 [facility] (Keflex) 0-13 06-17 [id number] capsule s t 500 MG 00:00: 04:59 [...] to 5 days. cephalexin 2021-08- No 500mg Q.[id number] Take 1 [facility] (Keflex) 0-13 - [id number] capsule s t 500 MG 00:00: 04:59 [...] to 5 days. cephalexin 2021-08- No 500mg Q.[id number] Take 1 [facility] (Keflex) 0-13 10-19 [id number] capsule s t 500 MG 00:00: 04:59 [...] to 5 days. cephalexin 2021-08 No 500mg Q.[id number] Take 1 [facility] (Keflex) 0-13 10-19 [id number] capsule s t 500 MG 00:00: 04:59 [...] to 5 days. cephalexin 2021-08- No 500mg Q.[id number] Take 1 [facility] (Keflex) 0-13 10-19 [id number] capsule s t 500 MG 00:00: 04:59 [...] to 5 days. cephalexin 2021-08- No 500mg Q.[id number] Take 1 [facility] (Keflex) 0-13 10-19 [id number] capsule s t 500 MG 00:00: 04:59 [...] to 5 days. cephalexin 2021-08- No 500mg Q.[id number] Take 1 [facility] (Keflex) 0-13 10-19 [id number] capsule s t 500 MG 00:00: 04:59 [...] to 5 days. cephalexin 2021-08- No 500mg Q.[id number] Take 1 [facility] (Keflex) 0-13 10-19 [id number] capsule s t 500 MG 00:00: 04:59 [...] to 5 days. cephalexin 2021-08- No 500mg Q.[id number] Take 1 [facility] (Keflex) 06-17 [id number] capsule s t 500 MG 00:00: 04:59 [...] No 1{tbl} Take 1 U nivers en-codeine 9- 05-23 tablet by ity of 300-30 mg 00:00: 00:00 mouth. [place] tablet 00 :00 Medical Branch acetaminoph 2021-2022- No 1{tbl} Take 1 U nivers en-codeine 9-14 05-23 tablet by ity of 300-30 mg 00:00: 00:00 mouth. [place] tablet 00 :00 Medical Branch ergocalcife 2022-0 Yes [id number] Take 1 Un jo rol, 9-08 capsule by ity of vitamin d2, 00:00: mouth [place] 1,250 mcg 00 weekly. Medical (50,000 Branch unit) capsule ergocalcife 2022-0 Yes [id number] Take 1 Un jo rol, 9-08 capsule by ity of vitamin d2, 00:00: mouth [place] 1,250 mcg 00 weekly. Medical (50,000 Branch unit) capsule ergocalcife 2022-0 Yes [id number] Take 1 Un jo rol, 9-08 capsule by ity of vitamin d2, 00:00: mouth [place] 1,250 mcg 00 weekly. Medical (50,000 Branch unit) capsule loratadine 2022- No 10mg Take 1 Univ ers 10 mg 9-08 05-23 tablet by ity of tablet 00:00: 00:00 mouth [place] 00 :00 every Medical morning. Jeannette SUMAtriptan 0 2022- No Take 1 Uni vers 25 mg 05-07-23 tablet by ity of tablet 00:00: 00:00 mouth at [place] 00 :00 onset of Medical headache. Branch Repeat after 2 hours if needed. Maximum 200mg/24 hours. loratadine 2022- No 10mg Take 1 Univ ers 10 mg -04 03-23 tablet by ity of tablet 00:00: 00:00 mouth [place] 00 :00 every Medical morning. Jeannette SUMAtriptan 2021-0 2022- No Take 1 Uni vers 25 mg -04 03- tablet by ity of tablet 00:00: 00:00 mouth at [place] 00 :00 onset of Medical headache. Branch Repeat after 2 hours if needed. Maximum 200mg/24 hours. potassium No /= 14 Memoria chloride 7-21 [place], l 05:55: december Dav 00 dissolve each 20 mEq tablet in 4 oz of water. Allow about 2 minutes for the tablets to disintegra te. Stir before giving to prepare slurry and administer . Please exclude patient's with feeding tube less than 14 [place] (Dobhoff, J-tube, etc) and pediatric and patients. potassium 2021-0 No /= 14 Memoria chloride 7-21 [place], l 05:55: december Dav 00 dissolve each 20 mEq tablet in 4 oz of water. Allow about 2 minutes for the tablets to disintegra te. Stir before giving to prepare slurry and administer . Please exclude patient's with feeding tube less than 14 [place] (Dobhoff, J-tube, etc) and pediatric and patients. potassium 2-0 No /= 14 Memoria chloride 7-21 [place], l 05:55: december Dav 00 dissolve each 20 mEq tablet in 4 oz of water. Allow about 2 minutes for the tablets to disintegra te. Stir before giving to prepare slurry and administer . Please exclude patient's with feeding tube less than 14 [place] (Dobhoff, J-tube, etc) and pediatric and patients. potassium 2-0 No /= 14 Memoria chloride 7-21 [place], l 05:55: december [place] 00 dissolve each 20 mEq tablet in 4 oz of water. Allow about 2 minutes for the tablets to disintegra te. Stir before giving to prepare slurry and administer . Please exclude patient's with feeding tube less than 14 [place] (Dobhoff, J-tube, etc) and pediatric and patients. potassium 2022-0 No /= 14 Memoria chloride 7-21 [place], l 05:55: may Dav 00 dissolve each 20 mEq tablet in 4 oz of water. Allow about 2 minutes for the tablets to disintegra te. Stir before giving to prepare slurry and administer . Please exclude patient's with feeding tube less than 14 [place] (Dobhoff, J-tube, etc) and pediatric and patients. potassium 2022-0 No /= 14 Memoria chloride 7-21 [place], l 05:55: may [place] 00 dissolve each 20 mEq tablet in 4 oz of water. Allow about 2 minutes for the tablets to disintegra te. Stir before giving to prepare slurry and administer . Please exclude patient's with feeding tube less than 14 [place] (Dobhoff, J-tube, etc) and pediatric and patients. potassium 2022-0 No /= 14 Memoria chloride 7-21 [place], l 05:55: may [place] 00 dissolve each 20 mEq tablet in 4 oz of water. Allow about 2 minutes for the tablets to disintegra te. Stir before giving to prepare slurry and administer . Please exclude patient's with feeding tube less than 14 [place] (Dobhoff, J-tube, etc) and pediatric and patients. potassium 2022-0 No /= 14 Memoria chloride 7-21 [place], l 05:55: december Dav 00 dissolve each 20 mEq tablet in 4 oz of water. Allow about 2 minutes for the tablets to disintegra te. Stir before giving to prepare slurry and administer . Please exclude patient's with feeding tube less than 14 [place] (Dobhoff, J-tube, etc) and pediatric and patients. potassium 2022-0 No /= 14 Memoria chloride 7-21 [place], l 05:55: may [place] 00 dissolve each 20 mEq tablet in 4 oz of water. Allow about 2 minutes for the tablets to disintegra te. Stir before giving to prepare slurry and administer . Please exclude patient's with feeding tube less than 14 [place] (Dobhoff, J-tube, etc) and pediatric and patients. potassium 2022-0 No /= 14 Memoria chloride 7-21 [place], l 05:55: december [place] 00 dissolve each 20 mEq tablet in 4 oz of water. Allow about 2 minutes for the tablets to disintegra te. Stir before giving to prepare slurry and administer . Please exclude patient's with feeding tube less than 14 [place] (Dobhoff, J-tube, etc) and pediatric and patients. potassium 2022-0 No /= 14 Memoria chloride 7-21 [place], l 05:55: december [place] 00 dissolve each 20 mEq tablet in 4 oz of water. Allow about 2 minutes for the tablets to disintegra te. Stir before giving to prepare slurry and administer . Please exclude patient's with feeding tube less than 14 [place] (Dobhoff, J-tube, etc) and pediatric and patients. potassium 2022-0 No /= 14 Memoria chloride 7-21 [place], l 05:55: may Dav 00 dissolve each 20 mEq tablet in 4 oz of water. Allow about 2 minutes for the tablets to disintegra te. Stir before giving to prepare slurry and administer . Please exclude patient's with feeding tube less than 14 [place] (Dobhoff, J-tube, etc) and pediatric and patients. potassium 2022-0 No /= 14 Memoria chloride 7-21 [place], l 05:55: december Dav 00 dissolve each 20 mEq tablet in 4 oz of water. Allow about 2 minutes for the tablets to disintegra te. Stir before giving to prepare slurry and administer . Please exclude patient's with feeding tube less than 14 [place] (Dobhoff, J-tube, etc) and pediatric and patients. potassium 2022-0 No /= 14 Memoria chloride 7-21 [place], l 05:55: december [place] 00 dissolve each 20 mEq tablet in 4 oz of water. Allow about 2 minutes for the tablets to disintegra te. Stir before giving to prepare slurry and administer . Please exclude patient's with feeding tube less than 14 [place] (Dobhoff, J-tube, etc) and pediatric and patients. potassium 2022-0 No /= 14 Memoria chloride 7-21 [place], l 05:55: may [place] 00 dissolve each 20 mEq tablet in 4 oz of water. Allow about 2 minutes for the tablets to disintegra te. Stir before giving to prepare slurry and administer . Please exclude patient's with feeding tube less than 14 [place] (Dobhoff, J-tube, etc) and pediatric and patients. potassium 2022-0 No /= 14 Memoria chloride 7-21 [place], l 05:55: may Dav 00 dissolve each 20 mEq tablet in 4 oz of water. Allow about 2 minutes for the tablets to disintegra te. Stir before giving to prepare slurry and administer . Please exclude patient's with feeding tube less than 14 [place] (Dobhoff, J-tube, etc) and pediatric and patients. potassium 2022-0 No /= 14 Memoria chloride 7-21 [place], l 05:55: may [place] 00 dissolve each 20 mEq tablet in 4 oz of water. Allow about 2 minutes for the tablets to disintegra te. Stir before giving to prepare slurry and administer . Please exclude patient's with feeding tube less than 14 [place] (Dobhoff, J-tube, etc) and pediatric and patients. potassium 2022-0 No /= 14 Memoria chloride 7-21 [place], l 05:55: may [place] 00 dissolve each 20 mEq tablet in 4 oz of water. Allow about 2 minutes for the tablets to disintegra te. Stir before giving to prepare slurry and administer . Please exclude patient's with feeding tube less than 14 [place] (Dobhoff, J-tube, etc) and pediatric and patients. potassium 2022-0 No /= 14 Memoria chloride 7-21 [place], l 05:55: may [place] 00 dissolve each 20 mEq tablet in 4 oz of water. Allow about 2 minutes for the tablets to disintegra te. Stir before giving to prepare slurry and administer . Please exclude patient's with feeding tube less than 14 [place] (Dobhoff, J-tube, etc) and pediatric and patients. potassium 2022-0 No /= 14 Memoria chloride 7-21 [place], l 05:55: may [place] 00 dissolve each 20 mEq tablet in 4 oz of water. Allow about 2 minutes for the tablets to disintegra te. Stir before giving to prepare slurry and administer . Please exclude patient's with feeding tube less than 14 [place] (Dobhoff, J-tube, etc) and pediatric and patients. potassium 2022-0 No /= 14 Memoria chloride 7-21 [place], l 05:55: may Dav 00 dissolve each 20 mEq tablet in 4 oz of water. Allow about 2 minutes for the tablets to disintegra te. Stir before giving to prepare slurry and administer . Please exclude patient's with feeding tube less than 14 [place] (Dobhoff, J-tube, etc) and pediatric and patients. [...] Intramuscu ity of mL 00:00: lar route. [place] injection 00 Medical Branch fluticasone 2021-0 3- No 1{puff} Inhale 1 Univers propion-gideon 7-21 05-23 Puff. ity of meteroL 00:00: 00:00 [place] 250-50 00 :00 Medical mcg/dose Branch inhalation disk sucralfate 2021-0 3- No 1g Take 1 Univ ers 1 gram 7-21 05-23 tablet by ity of tablet 00:00: 00:00 mouth 4 [place] 00 :00 (four) Medical times Branch daily. fluticasone 2-0 2022- No 1{puff} Inhale 1 Univers propion-gideon 7-21 05-23 Puff. ity of meteroL 00:00: 00:00 [place] 250-50 00 :00 Medical mcg/dose Branch inhalation disk sucralfate 2-0 3- No 1g Take 1 Univ ers 1 gram 7-21 05-23 tablet by ity of tablet 00:00: 00:00 mouth 4 [place] 00 :00 (four) Medical times Branch daily. [...] tab, PO, l tablet 03:27: Q6H, PRN [place] 00 Pain or Fever, Take with food, X 10 day, # 40 tab, 0 Refill(s) ibuprofen 0 Yes 600 mg = 1 Me moria 600 mg oral 7-16 tab, PO, l tablet 03:27: Q6H, PRN [place] 00 Pain or Fever, Take with food, [...] tab, PO, l tablet 03:27: Q6H, PRN [place] 00 Pain or Fever, Take with food, [...] tab, PO, l tablet 03:27: Q6H, PRN [place] 00 Pain or Fever, Take with food, X 10 day, # 40 tab, 0 Refill(s) ibuprofen 2022-0 Yes 600 mg = 1 Me moria 600 mg oral 7-16 tab, PO, l tablet 03:27: Q6H, PRN [place] 00 Pain or Fever, Take with food, X 10 day, # 40 tab, 0 Refill(s) ibuprofen 2022-0 Yes 600 mg = 1 Me moria 600 mg oral 7-16 tab, PO, l tablet 03:27: Q6H, PRN [place] 00 Pain or Fever, Take with food, X 10 day, # 40 tab, 0 Refill(s) ibuprofen 2-0 Yes 600 mg = 1 Me moria 600 mg oral 7-16 tab, PO, l tablet 03:27: Q6H, PRN [place] 00 Pain or Fever, Take with food, [...] tab, PO, l tablet 03:27: Q6H, PRN [place] 00 Pain or Fever, Take with food, [...] tab, PO, l tablet 03:27: Q6H, PRN [place] 00 Pain or Fever, Take with food, [...] vane 7-16 acetaminop l 00:44: hen 4000 [place] 00 mg/day (4 gm/day). (Same as: Tylenol Extra Strength) Tylenol No Notes: Max Henok vane 7-16 acetaminop l 00:44: hen 4000 [place] 00 mg/day (4 gm/day). (Same as: Tylenol Extra Strength) Tylenol No Notes: Max Henok vane 7-16 acetaminop l 00:44: hen 4000 [place] 00 mg/day (4 gm/day). (Same as: Tylenol Extra Strength) Tylenol No Notes: Max Henok vane 7-16 acetaminop l 00:44: hen 4000 [place] 00 mg/day (4 gm/day). (Same as: Tylenol Extra Strength) Tylenol No Notes: Max Henok vane 7-16 acetaminop l 00:44: hen 4000 [place] 00 mg/day (4 gm/day). (Same as: Tylenol Extra Strength) Tylenol 2022-0 No Notes: Max Henok vane 7-16 acetaminop l 00:44: hen 4000 [place] 00 mg/day (4 gm/day). (Same as: Tylenol Extra Strength) Tylenol 2021-0 No Notes: Max Henok vane 7-16 acetaminop l 00:44: hen 4000 [place] 00 mg/day (4 gm/day). (Same as: Tylenol Extra Strength) Tylenol 0 No Notes: Max Henok vane 7-16 acetaminop l 00:44: hen 4000 [place] 00 mg/day (4 gm/day). (Same as: Tylenol [...] vane 7-16 acetaminop l 00:44: hen 4000 [place] 00 mg/day (4 gm/day). (Same as: Tylenol Extra Strength) Tylenol 0 No Notes: Max Henok vane 7-16 acetaminop l 00:44: hen 4000 [place] 00 mg/day (4 gm/day). (Same as: Tylenol Extra Strength) Tylenol 0 No Notes: Max Henok vane 7-16 acetaminop l 00:44: hen 4000 [place] 00 mg/day (4 gm/day). (Same as: Tylenol Extra Strength) Tylenol 2021-0 No Notes: Max Henok vane 7-16 acetaminop l 00:44: hen 4000 [place] 00 mg/day (4 gm/day). (Same as: Tylenol Extra Strength) Tylenol 2021-0 No Notes: Max Henok vane 7-16 acetaminop l 00:44: hen 4000 [place] 00 mg/day (4 gm/day). (Same as: Tylenol Extra Strength) Tylenol 0 No Notes: Max Henok vane 7-16 acetaminop l 00:44: hen 4000 [place] 00 mg/day (4 gm/day). (Same as: Tylenol Extra Strength) Tylenol 2021-0 No Notes: Max Henok vane 7-16 acetaminop l 00:44: hen 4000 [place] 00 mg/day (4 gm/day). (Same as: Tylenol Extra Strength) Tylenol 0 No Notes: Max Henok vane 7-16 acetaminop l 00:44: hen 4000 [place] 00 mg/day (4 gm/day). (Same as: Tylenol Extra Strength) Tylenol 0 No Notes: Max Henok vane 7-16 acetaminop l 00:44: hen 4000 [place] 00 mg/day (4 gm/day). (Same as: Tylenol Extra Strength) Tylenol 0 No Notes: Max Henok vane 7-16 acetaminop l 00:44: hen 4000 [place] 00 mg/day (4 gm/day). (Same as: Tylenol [...] [place] injection 00 [facility] ibuprofen 2021-0 3- No 800mg Take 1 [facility] 800 mg 02-27 tablet by [facility] of tablet 00:00: 00:00 mouth. [place] 00 :00 [facility] ibuprofen 2-0 3- No 800mg Take 1 [facility] 800 mg 02-27 tablet by [facility] of tablet 00:00: 00:00 mouth. [place] 00 :00 [facility] phentermine 2021-0 3- No 37.5mg Take 1 [facility] nivers 37.5 mg 6- 05-23 capsule by ity o f capsule 00:00: 00:00 mouth [place] 00 :00 every Medical morning. Branch phentermine 0 2022- No 37.5mg Take 1 [facility] nivers 37.5 mg 6-28 05-23 capsule by ity o f capsule 00:00: 00:00 mouth [place] 00 :00 every Medical morning. Branch cabergoline 0 Yes .25mg Take 0.5 U nivers 0.5 mg 6-09 tablets by ity of tablet 00:00: mouth. [place] [facility] cabergoline 0 Yes .25mg Take 0.5 U nivers 0.5 mg 6-09 tablets by ity of tablet 00:00: mouth. [place] [facility] cabergoline Yes .25mg Take 0.5 U nivers 0.5 mg 6-09 tablets by ity of tablet 00:00: mouth. [place] [facility] venlafaxine 0 2022- No Take two U nivers 75 mg 6-09 03-23 tablets ity of tablet 00:00: 00:00 every [place] 00 :00 morning, Medical one tablet Branch at midday, and two tablets each evening for depression venlafaxine 0 2022- No Take two U nivers 75 mg 6-09 03-23 tablets ity of tablet 00:00: 00:00 every [place] 00 :00 morning, Medical one tablet Branch [...] times a l day. insulin 2021-0 Yes [id number] Inject Me thodi ASPART 5-[id number] (NovoLOG) 10:40: 3D skin [...] nightly. l injection (vial) insulin 2021-0 Yes [id number] Inject Me thodi ASPART 5-[id number] (NovoLOG) 10:40: 3D skin [...] nightly. l injection (vial) insulin 202-0 Yes [id number] Inject Me thodi ASPART 5-[id number] (NovoLOG) 10:40: 3D skin [...] nightly. l injection (vial) insulin 2021-0 Yes [id number] Inject Me thodi ASPART 5-[id number] (NovoLOG) 10:40: 3D skin [...] nightly. l injection (vial) insulin 2021-0 Yes [id number] Inject Me thodi ASPART 5-[id number] (NovoLOG) 10:40: 3D skin [...] nightly. l injection (vial) insulin 2021-0 Yes [id number] Inject Me thodi ASPART 5-[id number] (NovoLOG) 10:40: 3D skin [...] nightly. l injection (vial) insulin 2021-0 Yes [id number] Inject Me thodi ASPART 5-[id number] (NovoLOG) 10:40: 3D skin [...] nightly. l injection (vial) insulin 2021-0 Yes [id number] Inject Me thodi ASPART 5-[id number] (NovoLOG) 10:40: 3D skin [...] nightly. l injection (vial) insulin 2021-0 Yes [id number] Inject Me thodi ASPART 5-[id number] (NovoLOG) 10:40: 3D skin [...] nightly. l injection (vial) insulin 2021-0 Yes [id number] Inject Me thodi ASPART 5-[id number] (NovoLOG) 10:40: 3D skin [...] nightly. l injection (vial) insulin 2021-0 Yes [id number] Inject Me thodi ASPART 5-[id number] (NovoLOG) 10:40: 3D skin [...] nightly. l injection (vial) insulin 2021-0 Yes [id number] Inject Me thodi ASPART 5-[id number] (NovoLOG) 10:40: 3D skin [...] nightly. l injection (vial) insulin 2021-0 Yes [id number] Inject Me thodi ASPART 5-[id number] (NovoLOG) 10:40: 3D skin [...] [facility] 1-22 (Same as: l 00:00: Reglan) [place] 00 Reglan No Notes: [facility] 1-22 (Same as: l 00:00: Reglan) [place] 00 Reglan No Notes: [facility] 1-22 (Same as: l 00:00: Reglan) [place] 00 Reglan No Notes: [facility] 1-22 (Same as: l 00:00: Reglan) [place] 00 Reglan No Notes: [facility] 1-22 (Same as: l 00:00: Reglan) [place] 00 Reglan No Notes: [facility] 1-22 (Same as: l 00:00: Reglan) [place] 00 Reglan No Notes: [facility] 1-22 (Same as: l 00:00: Reglan) [place] 00 Reglan No Notes: [facility] 1-22 (Same as: l 00:00: Reglan) [place] 00 Reglan No Notes: [facility] 1-22 (Same as: l 00:00: Reglan) [place] 00 Reglan No Notes: [facility] 1-22 (Same as: l 00:00: Reglan) [place] 00 Reglan No Notes: [facility] 1-22 (Same as: l 00:00: Reglan) [place] 00 Reglan No Notes: [facility] 1-22 (Same as: l 00:00: Reglan) [place] 00 Reglan No Notes: [facility] 1-22 (Same as: l 00:00: Reglan) Dav 00 Reglan No Notes: [facility] 1-22 (Same as: l 00:00: Reglan) [place] 00 Reglan No Notes: [facility] 1-22 (Same as: l 00:00: Reglan) [place] 00 Reglan No Notes: [facility] 1-22 (Same as: l 00:00: Reglan) [place] 00 Reglan No Notes: [facility] 1-22 (Same as: l 00:00: Reglan) [place] 00 Reglan 2016-0 No Notes: [facility] 1-22 (Same as: l 00:00: Reglan) Dav Reglan 0 No Notes: [facility] 1-22 (Same as: l 00:00: Reglan) Dav Reglan 0 No Notes: [facility] 1-22 (Same as: l 00:00: Reglan) Dav Reglan 0 No Notes: [facility]oria 1-22 (Same as: l 00:00: Reglan) [place] Sodium 2016-0 No 1,000 mL, Memori a Chloride 1-21 Rate: 25 l 0.154 18:06: ml/hr, [place] MEQ/ML 00 Infuse Injectable over: 40 Solution hr, Route: IV, Dosing Weight 160.909 kg, Total Volume: 1,000, Start date: 09/19/15 12:06:00, Duration: 30 day, Stop date: 10/19/15 12:05:00 Sodium 2016-0 No 1,000 mL, Memori a Chloride 1-21 Rate: 25 l 0.154 18:06: ml/hr, [place] MEQ/ML 00 Infuse Injectable over: 40 Solution hr, Route: IV, Dosing Weight 160.909 kg, Total Volume: 1,000, Start date: 09/19/15 12:06:00, Duration: 30 day, Stop date: 10/19/15 12:05:00 Sodium 2016-0 No 1,000 mL, Memori a Chloride 1-21 Rate: 25 l 0.154 18:06: ml/hr, [place] MEQ/ML 00 Infuse Injectable over: 40 Solution [...] 1-21 Rate: 25 l 0.154 18:06: ml/hr, [place] MEQ/ML 00 Infuse Injectable over: 40 Solution [...] 1-21 Rate: 25 l 0.154 18:06: ml/hr, [place] MEQ/ML 00 Infuse Injectable over: 40 Solution hr, Route: IV, Dosing Weight 160.909 kg, Total Volume: 1,000, Start date: 09/19/15 12:06:00, Duration: 30 day, Stop date: 10/19/15 12:05:00 Sodium 2016-0 No 1,000 mL, Memori a Chloride 1-21 Rate: 25 l 0.154 18:06: ml/hr, [place] MEQ/ML 00 Infuse Injectable over: 40 Solution hr, Route: IV, Dosing Weight 160.909 kg, Total Volume: 1,000, Start date: 09/19/15 12:06:00, Duration: 30 day, Stop date: 10/19/15 12:05:00 Sodium 2016-0 No 1,000 mL, Memori a Chloride 1-21 Rate: 25 l 0.154 18:06: ml/hr, [place] MEQ/ML 00 Infuse Injectable over: 40 Solution hr, Route: IV, Dosing Weight 160.909 kg, Total Volume: 1,000, Start date: 09/19/15 12:06:00, Duration: 30 day, Stop date: 10/19/15 12:05:00 Sodium 2016-0 No 1,000 mL, Memori a Chloride 1-21 Rate: 25 l 0.154 18:06: ml/hr, [place] MEQ/ML 00 Infuse Injectable over: 40 Solution hr, Route: IV, Dosing Weight 160.909 kg, Total Volume: 1,000, Start date: 09/19/15 12:06:00, Duration: 30 day, Stop date: 10/19/15 12:05:00 Sodium 2016-0 No 1,000 mL, Memori a Chloride 1-21 Rate: 25 l 0.154 18:06: ml/hr, [place] MEQ/ML 00 Infuse Injectable over: 40 Solution hr, Route: IV, Dosing Weight 160.909 kg, Total Volume: 1,000, Start date: 09/19/15 12:06:00, Duration: 30 day, Stop date: 10/19/15 12:05:00 Sodium 2016-0 No 1,000 mL, Memori a Chloride 1-21 Rate: 25 l 0.154 18:06: ml/hr, [place] MEQ/ML 00 Infuse Injectable over: 40 Solution hr, Route: IV, Dosing Weight 160.909 kg, Total Volume: 1,000, Start date: 09/19/15 12:06:00, Duration: 30 day, Stop date: 10/19/15 12:05:00 Sodium 2016-0 No 1,000 mL, Memori a Chloride 1-21 Rate: 25 l 0.154 18:06: ml/hr, [place] MEQ/ML 00 Infuse Injectable over: 40 Solution hr, Route: IV, Dosing Weight 160.909 kg, Total Volume: 1,000, Start date: 09/19/15 12:06:00, Duration: 30 day, Stop date: 10/19/15 12:05:00 Sodium 2016-0 No 1,000 mL, Memori a Chloride 1-21 Rate: 25 l 0.154 18:06: ml/hr, [place] MEQ/ML 00 Infuse Injectable over: 40 Solution hr, Route: IV, Dosing Weight 160.909 kg, Total Volume: 1,000, Start date: 09/19/15 12:06:00, Duration: 30 day, Stop date: 10/19/15 12:05:00 Sodium 2016-0 No 1,000 mL, Memori a Chloride 1-21 Rate: 25 l 0.154 18:06: ml/hr, [place] MEQ/ML 00 Infuse Injectable over: 40 Solution [...] 1-21 Rate: 25 l 0.154 18:06: ml/hr, [place] MEQ/ML 00 Infuse Injectable over: 40 Solution hr, Route: IV, Dosing Weight 160.909 kg, Total Volume: 1,000, Start date: 09/19/15 12:06:00, Duration: 30 day, Stop date: 10/19/15 12:05:00 Sodium 2016-0 No 1,000 mL, Memori a Chloride 1-21 Rate: 25 l 0.154 18:06: ml/hr, [place] MEQ/ML 00 Infuse Injectable over: 40 Solution hr, Route: IV, Dosing Weight 160.909 kg, Total Volume: 1,000, Start date: 09/19/15 12:06:00, Duration: 30 day, Stop date: 10/19/15 12:05:00 Sodium 2016-0 No 1,000 mL, Memori a Chloride -21 Rate: 25 l 0.154 18:06: ml/hr, [place] MEQ/ML 00 Infuse Injectable over: 40 Solution hr, Route: IV, Dosing Weight 160.909 kg, Total Volume: 1,000, Start date: 09/19/15 12:06:00, Duration: 30 day, Stop date: 10/19/15 12:05:00 thiamine 2016-0 Yes 100 mg = 1 Mem oria 100 mg oral 1-21 tab, PO, l tablet 17:08: Daily, X [place] 14 day, # 14 tab, 0 Refill(s) pantoprazol 2015-0 Yes 40 mg = 1 M emoria e 40 mg 1-21 tab, PO, l oral 17:08: Before [place] enteric 00 Dinner, # coated 30 tab, 0 tablet Refill(s) Promethazin 2016-0 Yes 12.5 mg = M emoria e -21 1 tab, PO, l Hydrochlori 17:08: Q6H, [facility].5 MG 00 Nausea & Oral Tablet Vomiting, [Phenergan] X 7 day, # 28 tab, 0 Refill(s) Folic Acid 2015-0 Yes 1 mg = 1 Mem oria 1 MG Oral 1-21 tab, PO, l Tablet 17:08: Daily, # [place] 00 30 tab, 0 Refill(s) thiamine 2016-0 Yes 100 mg = 1 Mem oria 100 mg oral 1-21 tab, PO, l tablet 17:08: Daily, X [place] 14 day, # 14 tab, 0 Refill(s) pantoprazol 2016-0 Yes 40 mg = 1 M emoria e 40 mg 1-21 tab, PO, l oral 17:08: Before [place] enteric 00 Dinner, # coated 30 tab, [...] tab, PO, l Tablet 17:08: Daily, # [place] 00 30 tab, 0 Refill(s) thiamine 2016-0 [...] tab, PO, l Tablet 17:08: Daily, # [place] 00 30 tab, 0 Refill(s) thiamine 2016-0 Yes 100 mg = 1 Mem oria 100 mg oral 1-21 tab, PO, l tablet 17:08: Daily, X 14 day, # 14 tab, 0 Refill(s) pantoprazol 2016-0 Yes 40 mg = 1 M emoria e 40 mg 1-21 tab, PO, l oral 17:08: Before [place] enteric 00 Dinner, # coated 30 tab, [...] 1-21 tab, PO, l oral 17:08: Before [place] enteric Dinner, # coated 30 tab, 0 [...] 1-21 tab, PO, l oral 17:08: Before [place] enteric 00 Dinner, # coated 30 tab, [...] tab, PO, l Tablet 17:08: Daily, # [place] 00 30 tab, 0 Refill(s) thiamine 2016-0 [...] 1-21 tab, PO, l oral 17:08: Before [place] enteric 00 Dinner, # coated 30 tab, [...] tab, PO, l Tablet 17:08: Daily, # [place] 00 30 tab, 0 Refill(s) thiamine 2016-0 [...] tab, PO, l Tablet 17:08: Daily, # [place] 00 30 tab, 0 Refill(s) thiamine 2016-0 [...] tab, PO, l Tablet 17:08: Daily, # [place] 00 30 tab, 0 Refill(s) thiamine 2016-0 Yes 100 mg = 1 Mem oria 100 mg oral 1-21 tab, PO, l tablet 17:08: Daily, X 14 day, # 14 tab, 0 Refill(s) pantoprazol 2016-0 Yes 40 mg = 1 M emoria e 40 mg 1-21 tab, PO, l oral 17:08: Before [place] enteric Dinner, # coated 30 tab, 0 [...] 1-21 tab, PO, l oral 17:08: Before [place] enteric 00 Dinner, # coated 30 tab, [...] 1-21 tab, PO, l oral 17:08: Before [place] enteric Dinner, # coated 30 tab, 0 [...] 1-21 tab, PO, l oral 17:08: Before [place] enteric 00 Dinner, # coated 30 tab, [...] tab, PO, l Tablet 17:08: Daily, # 00 30 tab, 0 Refill(s) thiamine 2016-0 Yes 100 mg = 1 Mem oria 100 mg oral 1-21 tab, PO, l tablet 17:08: Daily, X 14 day, # 14 tab, 0 Refill(s) pantoprazol 2016-0 Yes 40 mg = 1 M emoria e 40 mg 1-21 tab, PO, l oral 17:08: Before [place] enteric 00 Dinner, # coated 30 tab, [...] 1-21 tab, PO, l oral 17:08: Before [place] enteric Dinner, # coated 30 tab, 0 [...] -21 tab, PO, l oral 17:08: Before [place] enteric 00 Dinner, # coated 30 tab, 0 tablet Refill(s) Promethazin Yes 12.5 mg = M emoria e -21 1 tab, PO, l Hydrochlori 17:08: Q6H, PRN He nawaf de 12.5 MG 00 Nausea & Oral Tablet Vomiting, [Phenergan] X 7 day, # 28 tab, 0 Refill(s) Folic Acid Yes 1 mg = 1 Mem oria 1 MG Oral 21 tab, PO, l Tablet 17:08: Daily, # [place] 00 30 tab, 0 Refill(s) Melatonin No 1 mg, [facility]oria 09-19 Route: PO, l 03:00: Drug form: Dav 00 TAB, Bedtime, Dosing Weight 160.909, kg, Start date: 09/18/15 21:00:00, Duration: 30 day, Stop date: 10/17/15 21:00:00 Lamictal No Notes: [facility]oria - (Same l 03:00: as:LaMICta Dav l) Strattera No 80 mg, Memori a 09-19 Route: PO, l 03:00: Drug form: [place] 00 CAP, Bedtime, Dosing Weight 160.909, kg, Start date: 09/18/15 21:00:00, Duration: 30 day, Stop date: 10/17/15 21:00:00 Melatonin No 1 mg, Mem[facility] 09-19 Route: PO, l 03:00: Drug form: [place] 00 TAB, Bedtime, Dosing Weight 160.909, kg, Start date: 09/18/15 21:00:00, Duration: 30 day, Stop date: 10/17/15 21:00:00 Lamictal 2015-0 No Notes: [facility]oria - (Same l 03:00: as:LaMICta Dav l) Strattera 0 No 80 mg, Memori a 09-19 Route: [...] 1-21 Route: PO, l 03:00: Drug form: [place] 00 CAP, Bedtime, Dosing Weight 160.909, kg, Start date: 09/18/15 21:00:00, Duration: 30 day, Stop date: 10/17/15 21:00:00 Melatonin 2015-0 No 1 mg, [facility] 1-21 Route: PO, l 03:00: Drug form: [place] 00 TAB, Bedtime, Dosing Weight 160.909, kg, Start date: 09/18/15 21:00:00, Duration: 30 day, Stop date: 10/17/15 21:00:00 Lamictal 2016-0 No Notes: [facility]oria 1-21 (Same l 03:00: as:LaMICta [place] l) Strattera 2015-0 No 80 mg, Memori a 1-21 Route: PO, l 03:00: Drug form: [place] 00 CAP, Bedtime, Dosing Weight 160.909, kg, Start date: 09/18/15 21:00:00, Duration: 30 day, Stop date: 10/17/15 21:00:00 Melatonin 2015-0 No 1 mg, [facility] 1-21 Route: PO, l 03:00: Drug form: [place] 00 TAB, Bedtime, Dosing Weight 160.909, kg, Start date: 09/18/15 21:00:00, Duration: 30 day, Stop date: 10/17/15 21:00:00 Lamictal 2016-0 No Notes: [facility] 1-21 (Same l 03:00: as:LaMICta [place] 00 l) Strattera 2015-0 No 80 mg, Memori a 1-21 Route: PO, l 03:00: Drug form: [place] 00 CAP, Bedtime, Dosing Weight 160.909, kg, Start date: 09/18/15 21:00:00, Duration: 30 day, Stop date: 10/17/15 21:00:00 Melatonin 2015-0 No 1 mg, Memoria 121 Route: PO, l 03:00: Drug form: [place] 00 TAB, Bedtime, Dosing Weight 160.909, kg, Start date: 09/18/15 21:00:00, Duration: 30 day, Stop date: 10/17/15 21:00:00 Lamictal 2016-0 No Notes: [facility] 1-21 (Same l 03:00: as:LaMICta [place] 00 l) Strattera 2016-0 No 80 mg, [...] Notes: [facility]oria 1-21 (Same l 03:00: as:LaMICta [place] 00 l) Strattera 2016-0 No 80 mg, Memori a 1-21 Route: PO, l 03:00: Drug form: [place] 00 CAP, Bedtime, Dosing Weight 160.909, kg, Start date: 09/18/15 21:00:00, Duration: 30 day, Stop date: 10/17/15 21:00:00 Melatonin 2015-0 No 1 mg, [facility]oria 1-21 Route: PO, l 03:00: Drug form: [place] 00 TAB, Bedtime, Dosing Weight 160.909, kg, Start date: 09/18/15 21:00:00, Duration: 30 day, Stop date: 10/17/15 21:00:00 Lamictal 2016-0 No Notes: [facility] 1-21 (Same l 03:00: as:LaMICta Dav 00 l) Strattera 2015-0 No 80 mg, Memori a 1-21 Route: PO, l 03:00: Drug form: [place] 00 CAP, Bedtime, Dosing Weight 160.909, kg, Start date: 09/18/15 21:00:00, Duration: 30 day, Stop date: 10/17/15 21:00:00 Melatonin 2015-0 No 1 mg, Memoria 121 Route: PO, l 03:00: Drug form: [place] 00 TAB, Bedtime, Dosing Weight 160.909, kg, [...] 1-21 Route: PO, l 03:00: Drug form: [place] 00 CAP, Bedtime, Dosing Weight 160.909, kg, Start date: 09/18/15 21:00:00, Duration: 30 day, Stop date: 10/17/15 21:00:00 Melatonin 2015-0 No 1 mg, [facility]oria 1-21 Route: PO, l 03:00: Drug form: [place] 00 TAB, Bedtime, Dosing Weight 160.909, kg, Start date: 09/18/15 21:00:00, Duration: 30 day, Stop date: 10/17/15 21:00:00 Lamictal 2016-0 No Notes: [facility]oria 1-21 (Same l 03:00: as:LaMICta Dav 00 l) Strattera 2015-0 No 80 mg, Memori a 1-21 Route: PO, l 03:00: Drug form: [place] 00 CAP, Bedtime, Dosing Weight 160.909, kg, Start date: 09/18/15 21:00:00, Duration: 30 day, Stop date: 10/17/15 21:00:00 Melatonin 2015-0 No 1 mg, Memoria 1 Route: PO, l 03:00: Drug form: Dav 00 TAB, Bedtime, Dosing Weight 160.909, kg, Start date: 09/18/15 21:00:00, Duration: 30 day, Stop date: 10/17/15 21:00:00 Lamictal 2016-0 No Notes: [facility]oria 1-21 (Same l 03:00: as:LaMICta [place] 00 l) Strattera 2015-0 No 80 mg, Memori a 1- Route: PO, l 03:00: Drug form: [place] 00 CAP, Bedtime, Dosing Weight 160.909, kg, [...] 1-21 Route: PO, l 03:00: Drug form: [place] 00 CAP, Bedtime, Dosing Weight 160.909, kg, Start date: 09/18/15 21:00:00, Duration: 30 day, Stop date: 10/17/15 21:00:00 Melatonin 2015-0 No 1 mg, Memoria 1- Route: PO, l 03:00: Drug form: [place] 00 TAB, Bedtime, Dosing Weight 160.909, kg, Start date: 09/18/15 21:00:00, Duration: 30 day, Stop date: 10/17/15 21:00:00 Lamictal 2016-0 No Notes: [facility] 1-21 (Same l 03:00: as:LaMICta [place] l) Strattera 2015-0 No 80 mg, Memori a 1-21 Route: PO, l 03:00: Drug form: Dav 00 CAP, Bedtime, Dosing Weight 160.909, kg, Start date: 09/18/15 21:00:00, Duration: 30 day, Stop date: 10/17/15 21:00:00 Melatonin 2015-0 No 1 mg, Memoria 1-21 Route: PO, l 03:00: Drug form: [place] 00 TAB, Bedtime, Dosing Weight 160.909, kg, Start date: 09/18/15 21:00:00, Duration: 30 day, Stop date: 10/17/15 21:00:00 Lamictal 2016-0 No Notes: [facility]oria 1-21 (Same l 03:00: as:LaMICta Dav 00 l) Strattera 2015-0 No 80 mg, Memori a 1-21 Route: PO, l 03:00: Drug form: [place] 00 CAP, Bedtime, Dosing Weight 160.909, kg, Start date: 09/18/15 21:00:00, Duration: 30 day, Stop date: 10/17/15 21:00:00 Melatonin 2015-0 No 1 mg, Memoria 1 Route: PO, l 03:00: Drug form: Dav 00 TAB, Bedtime, Dosing Weight 160.909, kg, Start date: 09/18/15 21:00:00, Duration: 30 day, Stop date: 10/17/15 21:00:00 Lamictal 2015-0 No Notes: [facility] 1-21 (Same l 03:00: as:LaMICta Dav 00 l) Chandattera 2015-0 No 80 mg, Memori a 1-21 Route: PO, l 03:00: Drug form: Dav 00 CAP, Bedtime, Dosing Weight 160.909, kg, Start date: 09/18/15 21:00:00, Duration: 30 day, Stop date: 10/17/15 21:00:00 Melatonin 2015-0 No 1 mg, Memoria 1 Route: PO, l 03:00: Drug form: [place] 00 TAB, Bedtime, Dosing Weight 160.909, kg, [...] 1-21 Route: PO, l 03:00: Drug form: [place] 00 TAB, Bedtime, Dosing Weight 160.909, kg, [...] 1- Route: PO, l 03:00: Drug form: [place] 00 CAP, Bedtime, Dosing Weight 160.909, kg, Start date: 09/18/15 21:00:00, Duration: 30 day, Stop date: 10/17/15 21:00:00 Melatonin 0 No 1 mg, Memoria 09-19 Route: PO, l 03:00: Drug form: Dav 00 TAB, Bedtime, Dosing Weight 160.909, kg, Start date: 09/18/15 21:00:00, Duration: 30 day, Stop date: 10/17/15 21:00:00 Lamictal 2015-0 No Notes: [facility] 1-21 (Same l 03:00: as:LaMICta [place] 00 l) Strattera 2015-0 No 80 mg, Memori a 1-21 Route: PO, l 03:00: Drug form: [place] 00 CAP, Bedtime, Dosing Weight 160.909, kg, Start date: 09/18/15 21:00:00, Duration: 30 day, Stop date: 10/17/15 21:00:00 Protonix 2015-0 No Notes: Memoria 1-20 Tablet l 22:30: should not Dav 00 be chewed or crushed. (Same as: Protonix) Protonix 2015-0 No Notes: Memoria 1-20 Tablet l 22:30: should not [place] 00 be chewed or crushed. (Same as: Protonix) Protonix 2015-0 No Notes: Memoria 1-20 Tablet l 22:30: should not [place] 00 be chewed or crushed. (Same as: Protonix) Protonix 2015-0 No Notes: Memoria 1-20 Tablet l 22:30: should not [place] 00 be chewed or crushed. (Same as: Protonix) Protonix 2015-0 No Notes: [facility] 1-20 Tablet l 22:30: should not [place] 00 be chewed or crushed. (Same as: Protonix) Protonix 2015-0 No Notes: [facility] 1-20 Tablet l 22:30: should not [place] 00 be chewed or crushed. (Same as: Protonix) Protonix 2015-0 No Notes: [facility] 1-20 Tablet l 22:30: should not [place] 00 be chewed or crushed. (Same as: Protonix) Protonix 0 No Notes: [facility] 1-20 Tablet l 22:30: should not [place] 00 be chewed or crushed. (Same as: Protonix) Protonix 0 No Notes: [facility] 1-20 Tablet l 22:30: should not Dav 00 be chewed or crushed. (Same as: Protonix) Protonix 0 No Notes: [facility] 1-20 Tablet l 22:30: should not [place] 00 be chewed or crushed. (Same as: Protonix) Protonix 2015-0 No Notes: [facility] 1-20 Tablet l 22:30: should not Dav 00 be chewed or crushed. (Same as: Protonix) Protonix 2015-0 No Notes: [facility] 1-20 Tablet l 22:30: should not Dav 00 be chewed or crushed. (Same as: Protonix) Protonix 2015-0 No Notes: [facility] 1-20 Tablet l 22:30: should not [place] 00 be chewed or crushed. (Same as: [...] Memoria 1-20 Tablet l 22:30: should not [place] 00 be chewed or crushed. (Same as: Protonix) Protonix 0 No Notes: [facility] 1-20 Tablet l 22:30: should not [place] 00 be chewed or crushed. (Same as: Protonix) Protonix 0 No Notes: [facility]oria 1-20 Tablet l 22:30: should not [place] 00 be chewed or crushed. (Same as: Protonix) Protonix No Notes: Memoria 1-20 Tablet l 22:30: should not Dav 00 be chewed or crushed. (Same as: Protonix) Protonix No Notes: Memoria 1-20 Tablet l 22:30: should not [place] 00 be chewed or crushed. (Same as: Protonix) Thiamine No Notes: Memoria 1-20 (Same As: l 20:00: Vitamin [place] 00 B1) Thiamine No Notes: Memoria 1-20 (Same As: l 20:00: Vitamin [place] 00 B1) Thiamine No Notes: Memoria 1-20 (Same As: l 20:00: Vitamin Dav 00 B1) Thiamine No Notes: Memoria 1-20 (Same As: l 20:00: Vitamin [place] 00 B1) Thiamine No Notes: Memoria 1-20 (Same As: l 20:00: Vitamin Dav 00 B1) Thiamine No Notes: Memoria 1-20 (Same As: l 20:00: Vitamin Dav 00 B1) Thiamine No Notes: Memoria 1-20 (Same As: l 20:00: Vitamin Dav 00 B1) Thiamine No Notes: Memoria 1-20 (Same As: l 20:00: Vitamin Dav 00 B1) Thiamine 2016-0 No Notes: Memoria 1-20 (Same As: l 20:00: Vitamin [place] 00 B1) Thiamine No Notes: Memoria 1-20 (Same As: l 20:00: Vitamin [place] 00 B1) Thiamine No Notes: Memoria 1-20 (Same As: l 20:00: Vitamin [place] 00 B1) Thiamine No Notes: Memoria 1-20 [...] Memoria 1-20 (Same As: l 20:00: Vitamin [place] 00 B1) Thiamine No Notes: Memoria 1-20 (Same As: l 20:00: Vitamin Dav 00 B1) Thiamine No Notes: Memoria 1-20 (Same As: l 20:00: Vitamin [place] 00 B1) Thiamine No Notes: Memoria 1-20 (Same As: l 20:00: Vitamin Dav 00 B1) Thiamine No Notes: Memoria 1-20 (Same As: l 20:00: Vitamin [place] 00 B1) Folic Acid No Notes: Memor ia 1-20 (Same as: l 19:00: Folvite) Dav 00 Folic Acid No Notes: Memor ia 1-20 (Same as: l 19:00: Folvite) [place] 00 Folic Acid No Notes: Memor ia 1-20 (Same as: l 19:00: Folvite) Dav 00 Folic Acid No Notes: Memor ia 1-20 (Same as: l 19:00: Folvite) [place] 00 Folic Acid No Notes: Memor ia 1-20 (Same as: l 19:00: Folvite) [place] 00 Folic Acid 2016-0 No Notes: Memor ia [...] (Same as: l 19:00: Folvite) Folic Acid 0 No Notes: Memor ia 1-20 (Same as: l 19:00: Folvite) normal 2015-0 No 1,000 mL, Memori a [...] Memoria 1-20 (Same as: l 15:00: Prinivil, [place] 00 Zestril) Lovenox No Notes: Memoria 1-20 (Same as: l 15:00: Lovenox) [place] hydrochloro No Notes: Henok vane thiazide 25 1-20 (Same as: l mg oral 15:00: Hydrodiuri Herm kailash tablet 00 l) With food. Prilosec No 40 mg, Memoria 1-20 Route: PO, l 15:00: Drug form: [place] 00 DRC, Daily, Dosing Weight 160.909, kg, [...] Memoria 1-20 (Same as: l 15:00: Prinivil, [place] 00 Zestril) Lovenox No Notes: Memoria 1-20 [...] vane n 1-20 Route: l 15:00: CHEW, [place] 00 Dosing Weight 160.909, kg, BID, Start date: 09/18/15 9:00:00, Duration: 30 day, Stop date: 10/17/15 17:00:00 Hydrochloro 2016-0 No 1 tab, Henok vane thiazide 25 1-20 Route: PO, l MG / 15:00: Drug Form: [place] Lisinopril 00 TAB, 20 MG Oral Dosing Tablet Weight 160.909, kg, Daily, Start date: 09/18/15 9:00:00, Duration: 30 day, Stop date: 10/17/15 9:00:00 Prinivil 0 No Notes: Memoria 1-20 (Same as: l 15:00: Prinivil, Dav 00 Zestril) Lovenox 2015-0 No Notes: Memoria 1-20 (Same as: l 15:00: Lovenox) [place] 00 hydrochloro 0 No Notes: Henok vane thiazide 25 1-20 (Same as: l mg oral 15:00: Hydrodiuri Herm kailash tablet 00 l) With food. Prilosec 2015-0 No 40 mg, Memoria 1-20 Route: PO, l 15:00: Drug form: [place] 00 DRC, Daily, Dosing Weight 160.909, kg, [...] 1-20 Route: PO, l 15:00: Drug form: [place] 00 DRC, Daily, Dosing Weight 160.909, kg, [...] PO, l MG / 15:00: Drug Form: [place] Lisinopril 00 TAB, 20 MG Oral Dosing Tablet Weight 160.909, kg, Daily, Start date: 09/18/15 9:00:00, Duration: 30 day, Stop date: 10/17/15 9:00:00 Prinivil No Notes: Memoria 1-20 (Same as: l 15:00: Prinivil, Dav 00 Zestril) Lovenox No Notes: Memoria 1-20 (Same as: l 15:00: Lovenox) [place] 00 hydrochloro No Notes: Henok vane thiazide [...] Notes: Memoria 1-20 (Same as: l 15:00: PrinivilDav Zestril) Lovenox 0 No Notes: Memoria 1-20 (Same as: l 15:00: Lovenox) Dav 00 hydrochloro 0 No Notes: Henok vane thiazide 25 1-20 (Same as: l mg oral 15:00: Hydrodiuri Herm kailash tablet 00 l) With food. Prilosec No 40 mg, Memoria 1-20 Route: PO, l 15:00: Drug form: [place] 00 DRC, Daily, Dosing Weight 160.909, kg, Start date: 09/18/15 9:00:00, Duration: 30 day, Stop date: 10/17/15 9:00:00 multivitami 2016-0 No 2 tab, Henok vane n 1-20 Route: l 15:00: CHEW, [place] 00 Dosing Weight 160.909, kg, BID, Start date: 09/18/15 9:00:00, Duration: 30 day, Stop date: 10/17/15 17:00:00 Hydrochloro 2015-0 No 1 tab, Henok vane thiazide 25 1-20 Route: PO, l MG / 15:00: Drug Form: [place] Lisinopril 00 TAB, 20 MG Oral Dosing Tablet Weight 160.909, kg, Daily, Start date: 09/18/15 9:00:00, Duration: 30 day, Stop date: 10/17/15 9:00:00 Prinivil 2015-0 No Notes: Memoria 1-20 (Same as: l 15:00: Prinivil, Dav 00 Zestril) Lovenox 2015-0 No Notes: Memoria 1-20 (Same as: l 15:00: Lovenox) [place] 00 hydrochloro 0 No Notes: Henok vane [...] vane n 1-20 Route: l 15:00: CHEW, [place] 00 Dosing Weight 160.909, kg, BID, Start [...] Memoria 1-20 (Same as: l 15:00: Prinivil, [place] 00 Zestril) Lovenox 2015-0 No Notes: Memoria [...] 1-20 Route: PO, l 15:00: Drug form: [place] 00 DRC, Daily, Dosing Weight 160.909, kg, [...] PO, l MG / 15:00: Drug Form: [place] Lisinopril 00 TAB, 20 MG Oral Dosing Tablet Weight 160.909, kg, Daily, Start date: 09/18/15 9:00:00, Duration: 30 day, Stop date: 10/17/15 9:00:00 Prinivil 0 No Notes: Memoria 1-20 (Same as: l 15:00: Prinivil, [place] 00 Zestril) Lovenox 0 No Notes: [facility]oria 1-20 (Same as: l 15:00: Lovenox) [place] 00 hydrochloro 0 No Notes: Henok vane thiazide 25 1-20 (Same as: l mg oral 15:00: Hydrodiuri Herm kailash tablet 00 l) With food. Prilosec No 40 mg, Memoria 1-20 Route: PO, l 15:00: Drug form: [place] 00 DRC, Daily, Dosing Weight 160.909, kg, [...] PO, l MG / 15:00: Drug Form: [place] Lisinopril 00 TAB, 20 MG Oral Dosing Tablet Weight 160.909, kg, Daily, Start date: 09/18/15 9:00:00, Duration: 30 day, Stop date: 10/17/15 9:00:00 Prinivil 2015-0 No Notes: Memoria 1-20 (Same as: l 15:00: Prinivil, Dav 00 Zestril) Lovenox No Notes: Memoria 1-20 (Same as: l 15:00: Lovenox) [place] 00 hydrochloro No Notes: Henok vane thiazide [...] Memoria 1-20 (Same as: l 15:00: Prinivil, [place] 00 Zestril) Prinivil No Notes: Memoria 1-20 (Same as: l 15:00: Prinivil, [place] 00 Zestril) Lovenox No Notes: Memoria 1-20 (Same as: l 15:00: Lovenox) [place] 00 hydrochloro No Notes: Henok vane thiazide 25 1-20 (Same as: l mg oral 15:00: Hydrodiuri Herm kailash tablet 00 l) With food. Prilosec No 40 mg, Memoria 1-20 Route: PO, l 15:00: Drug form: [place] 00 DRC, Daily, Dosing Weight 160.909, kg, [...] PO, l MG / 15:00: Drug Form: [place] Lisinopril 00 TAB, 20 MG Oral Dosing Tablet Weight 160.909, kg, Daily, Start date: 09/18/15 9:00:00, Duration: 30 day, Stop date: 10/17/15 9:00:00 Lovenox No Notes: Memoria 1-20 (Same as: l 15:00: Lovenox) Dav hydrochloro No Notes: Henok vane thiazide 25 1-20 (Same as: l mg oral 15:00: Hydrodiuri Herm kailash tablet 00 l) With food. Prilosec No 40 mg, Memoria 1-20 Route: PO, l 15:00: Drug form: [place] 00 DRC, Daily, Dosing Weight 160.909, kg, Start date: 09/18/15 9:00:00, Duration: 30 day, Stop date: 10/17/15 9:00:00 multivitami 2015-0 No 2 tab, Henok vane n 1-20 Route: l 15:00: CHEW, [place] 00 Dosing Weight 160.909, kg, BID, Start date: 09/18/15 9:00:00, Duration: 30 day, Stop date: 10/17/15 17:00:00 Prinivil 2015-0 No Notes: Memoria 1-20 (Same [...] vane n 1-20 Route: l 15:00: CHEW, [place] 00 Dosing Weight 160.909, kg, BID, Start date: 09/18/15 9:00:00, Duration: 30 day, Stop date: 10/17/15 17:00:00 Hydrochloro 2015-0 No 1 tab, Henok vane thiazide 25 1-20 Route: PO, l MG / 15:00: Drug Form: Dav Lisinopril 00 TAB, 20 MG Oral Dosing Tablet Weight 160.909, kg, Daily, Start date: 09/18/15 9:00:00, Duration: 30 day, Stop date: 10/17/15 9:00:00 Hydrochloro 2015-0 No 1 tab, Henok vane thiazide 25 1-20 Route: PO, l MG / 15:00: Drug Form: Dav Lisinopril 00 TAB, 20 MG Oral Dosing Tablet Weight 160.909, kg, Daily, Start date: 09/18/15 9:00:00, Duration: 30 day, Stop date: 10/17/15 9:00:00 Prinivil 2015-0 No Notes: Memoria 1-20 (Same as: l 15:00: Prinivil, Dav Zestril) Lovenox 2015-0 No Notes: Memoria 1-20 [...] Memoria 1-20 (Same as: l 15:00: Prinivil, [place] 00 Zestril) Lovenox 2015-0 No Notes: Memoria 1-20 (Same as: l 15:00: Lovenox) [place] 00 hydrochloro 2015-0 No Notes: Henok vane thiazide 25 1-20 (Same as: l mg oral 15:00: Hydrodiuri Herm kailash tablet 00 l) With food. Prilosec 2016-0 No 40 mg, Memoria 1-20 Route: PO, l 15:00: Drug form: [place] 00 DRC, Daily, Dosing Weight 160.909, kg, Start date: 09/18/15 9:00:00, Duration: 30 day, Stop date: 10/17/15 9:00:00 multivitami 2016-0 No 2 tab, Henok vane n 1-20 Route: l 15:00: CHEW, [place] 00 Dosing Weight 160.909, kg, BID, Start date: 09/18/15 9:00:00, Duration: 30 day, Stop date: 10/17/15 17:00:00 Hydrochloro 2016-0 No 1 tab, Henok vane thiazide 25 1-20 Route: PO, l MG / 15:00: Drug Form: [place] Lisinopril 00 TAB, 20 MG Oral Dosing Tablet Weight 160.909, kg, Daily, Start date: 09/18/15 9:00:00, Duration: 30 day, Stop date: 10/17/15 9:00:00 Prinivil No Notes: Memoria 1-20 (Same as: l 15:00: Prinivil, Dav 00 Zestril) Lovenox No Notes: [facility]oria 1-20 (Same as: l 15:00: Lovenox) [place] 00 hydrochloro No Notes: Henok vane thiazide 25 1-20 (Same as: l mg oral 15:00: Hydrodiuri Herm kaliash tablet 00 l) With food. Prilosec No 40 mg, Memoria 1-20 Route: PO, l 15:00: Drug form: [place] 00 DRC, Daily, Dosing Weight 160.909, kg, [...] Memoria 1-20 (Same as: l 15:00: Prinivil, [place] 00 Zestril) Lovenox No Notes: Memoria 1-20 (Same as: l 15:00: Lovenox) [place] hydrochloro No Notes: Henok vane thiazide 25 1-20 (Same as: l mg oral 15:00: Hydrodiuri Herm kailash tablet 00 l) With food. Prilosec No 40 mg, Memoria 1-20 Route: PO, l 15:00: Drug form: [place] 00 DRC, Daily, Dosing Weight 160.909, kg, Start date: 09/18/15 9:00:00, Duration: 30 day, Stop date: 10/17/15 9:00:00 multivitami 2015-0 No 2 tab, Henok vane n 1-20 Route: l 15:00: CHEW, [place] Dosing Weight 160.909, kg, BID, Start date: [...] Memoria 1-20 (Same as: l 15:00: Lovenox) [place] 00 hydrochloro 0 No Notes: Henok vane [...] PO, l MG / 15:00: Drug Form: [place] Lisinopril 00 TAB, 20 MG Oral Dosing [...] 1-20 Route: PO, l 15:00: Drug form: [place] 00 DRC, Daily, Dosing Weight 160.909, kg, Start date: 09/18/15 9:00:00, Duration: 30 day, Stop date: 10/17/15 9:00:00 multivitami No 2 tab, Henok vane n 1-20 Route: l 15:00: CHEW, [place] 00 Dosing Weight 160.909, kg, BID, Start [...] Memoria 1-20 (Same as: l 15:00: Prinivil, [place] 00 Zestril) Lovenox No Notes: Memoria 1-20 (Same as: l 15:00: Lovenox) [place] hydrochloro No Notes: Henok vane thiazide 25 1-20 (Same as: l mg oral 15:00: Hydrodiuri Herm kailash tablet 00 l) With food. Prilosec 2016-0 No 40 mg, Memoria 1-20 Route: PO, l 15:00: Drug form: [place] 00 DRC, Daily, Dosing Weight 160.909, kg, Start date: 09/18/15 9:00:00, Duration: 30 day, Stop date: 10/17/15 9:00:00 multivitami 2015-0 No 2 tab, Henok vane n 1-20 Route: l 15:00: CHEW, [place] 00 Dosing Weight 160.909, kg, BID, Start [...] a 1-20 (Same as: l 05:00: Wellbutrin [place] 00 XL) "Do Not Crush" Bupropion 0 No Notes: Memori a 1-20 (Same as: l 05:00: Wellbutrin Dav 00 XL) "Do Not Crush" Bupropion 2015-0 No Notes: Memori a 1-20 (Same as: l 05:00: Wellbutrin [place] 00 XL) "Do Not Crush" Bupropion 2015-0 No Notes: Memori a 1-20 (Same as: l 05:00: Wellbutrin [place] 00 XL) "Do Not Crush" Bupropion 2015-0 No Notes: Memori a 1-20 (Same as: l 05:00: Wellbutrin [place] 00 XL) "Do Not Crush" Bupropion 2015-0 No Notes: Memori a 1-20 (Same as: l 05:00: Wellbutrin [place] 00 XL) "Do Not Crush" Bupropion 2016-0 [...] a 1-20 (Same as: l 05:00: Wellbutrin [place] 00 XL) "Do Not Crush" Bupropion 2015-0 No Notes: Memori a 1-20 (Same as: l 05:00: Wellbutrin Dav 00 XL) "Do Not Crush" Bupropion 2015-0 No Notes: Memori a 1-20 (Same as: l 05:00: Wellbutrin [place] 00 XL) "Do Not Crush" Bupropion 2015-0 No Notes: Memori a 1-20 (Same as: l 05:00: Wellbutrin [place] 00 XL) "Do Not Crush" Bupropion 0 No Notes: Memori a 1-20 (Same as: l 05:00: Wellbutrin [place] 00 XL) "Do Not Crush" Bupropion 0 No Notes: Memori a 1-20 (Same as: l 05:00: Wellbutrin [place] 00 XL) "Do Not Crush" Bupropion 2015-0 No Notes: Memori a 1-20 (Same as: l 05:00: Wellbutrin [place] 00 XL) "Do Not Crush" Bupropion 2015-0 No Notes: Memori a 1-20 (Same as: l 05:00: Wellbutrin [place] 00 XL) "Do Not Crush" Bupropion 2015-0 [...] 1-20 not exceed l 04:26: 4 gm/day. [place] 00 (Same as: Tylenol) Ondansetron No Notes: Henok vane 1-20 (Same as: l 04:26: Zofran) [place] 00 MEDICATION WASTE Product Size: 4 mg Product Wasted: ___ mg Morphine No Notes: Memoria 1-20 (Same l 04:26: as:MORPhin Dav 00 e Sulfate) Phenergan No Notes: Do Mem oria 1-20 not give l 04:26: IV push. [place] 00 (Same as: Phenergan) Reglan No Notes: Memoria 1-20 (Same as: l 04:26: Reglan) Dav 00 Acetaminoph No Notes: Do M emoria en 1-20 not exceed l 04:26: 4 gm/day. [place] 00 (Same as: Tylenol) Ondansetron No Notes: Henok vane 1-20 (Same as: l 04:26: Zofran) Dav 00 MEDICATION WASTE Product Size: 4 mg Product Wasted: ___ mg Morphine No Notes: Memoria 1-20 (Same l 04:26: as:MORPhin Dav 00 e Sulfate) Phenergan No Notes: Do Mem oria 1-20 not give l 04:26: IV push. [place] 00 (Same as: Phenergan) Reglan No Notes: Memoria 1-20 (Same as: l 04:26: Reglan) Dav 00 Acetaminoph No Notes: Do M emoria en 1-20 not exceed l 04:26: 4 gm/day. [place] 00 (Same as: Tylenol) Ondansetron No Notes: Henok vane 1-20 (Same as: l 04:26: Zofran) Dav 00 MEDICATION WASTE Product Size: 4 mg Product Wasted: ___ mg Morphine No Notes: Memoria 1-20 (Same l 04:26: as:MORPhin [place] 00 e Sulfate) Phenergan No Notes: Do Mem oria 1-20 not give l 04:26: IV push. [place] 00 (Same as: Phenergan) Reglan No Notes: Memoria 1-20 (Same as: l 04:26: Reglan) [place] Acetaminoph No Notes: Do M emoria en 1-20 not exceed l 04:26: 4 gm/day. Dav 00 (Same as: Tylenol) Ondansetron No Notes: Henok vane 1-20 (Same as: l 04:26: Zofran) Dav 00 MEDICATION WASTE Product Size: 4 mg Product Wasted: ___ mg Morphine No Notes: Memoria 1-20 (Same l 04:26: as:MORPhin [place] 00 e Sulfate) Phenergan No Notes: Do Mem oria 1-20 not give l 04:26: IV push. [place] 00 (Same as: Phenergan) Reglan No Notes: Memoria 1-20 (Same as: l 04:26: Reglan) [place] 00 Acetaminoph No Notes: Do M emoria en 1-20 not exceed l 04:26: 4 gm/day. [place] 00 (Same as: Tylenol) Ondansetron No Notes: Henok vane 1-20 (Same as: l 04:26: Zofran) Dav 00 MEDICATION WASTE Product Size: 4 mg Product Wasted: ___ mg Morphine No Notes: Memoria 1-20 (Same l 04:26: as:MORPhin [place] 00 e Sulfate) Phenergan No Notes: Do Mem oria 1-20 not give l 04:26: IV push. [place] 00 (Same as: Phenergan) Reglan No Notes: Memoria 1-20 (Same as: l 04:26: Reglan) [place] Acetaminoph No Notes: Do M emoria en 1-20 not exceed l 04:26: 4 gm/day. Dav (Same as: Tylenol) Ondansetron No Notes: Henok vane 1-20 (Same as: l 04:26: Zofran) Dav 00 MEDICATION WASTE Product Size: 4 mg Product Wasted: ___ mg Morphine No Notes: Memoria 1-20 (Same l 04:26: as:MORPhin [place] 00 e Sulfate) Phenergan No Notes: Do Mem oria 1-20 not give l 04:26: IV push. Dav 00 (Same as: Phenergan) Reglan No Notes: Memoria 1-20 (Same as: l 04:26: Reglan) [place] Acetaminoph No Notes: Do M emoria en 1-20 not exceed l 04:26: 4 gm/day. [place] 00 (Same as: Tylenol) Ondansetron No Notes: [...] Memoria 1-20 (Same as: l 04:26: Reglan) [place] Acetaminoph No Notes: Do M emoria en 1-20 not exceed l 04:26: 4 gm/day. [place] (Same as: Tylenol) Ondansetron No Notes: Henok vane 1-20 (Same as: l 04:26: Zofran) Dav 00 MEDICATION WASTE Product Size: 4 mg Product Wasted: ___ mg Morphine No Notes: Memoria 1-20 (Same l 04:26: as:MORPhin [place] 00 e Sulfate) Phenergan No Notes: Do Mem oria 1-20 not give l 04:26: IV push. Dav 00 (Same as: Phenergan) Reglan No Notes: Memoria 1-20 (Same as: l 04:26: Reglan) Dav 00 Acetaminoph No Notes: Do M emoria en 1-20 not exceed l 04:26: 4 gm/day. [place] 00 (Same as: Tylenol) Ondansetron No Notes: Henok vane 1-20 (Same as: l 04:26: Zofran) Dav 00 MEDICATION WASTE Product Size: 4 mg Product Wasted: ___ mg Morphine No Notes: Memoria 1-20 (Same l 04:26: as:MORPhin [place] 00 e Sulfate) Phenergan No Notes: Do Mem oria 1-20 not give l 04:26: IV push. Dav 00 (Same as: Phenergan) Reglan No Notes: Memoria 1-20 (Same as: l 04:26: Reglan) [place] 00 Acetaminoph No Notes: Do M emoria [...] Memoria 1-20 (Same as: l 04:26: Reglan) [place] 00 Acetaminoph No Notes: Do M emoria en 1-20 not exceed l 04:26: 4 gm/day. [place] 00 (Same as: Tylenol) Ondansetron No Notes: Henok vane 1-20 (Same as: l 04:26: Zofran) [place] 00 MEDICATION WASTE Product Size: 4 mg Product Wasted: ___ mg Morphine No Notes: Memoria 1-20 (Same l 04:26: as:MORPhin Dav 00 e Sulfate) Phenergan No Notes: Do Mem oria 1-20 not give l 04:26: IV push. Dav 00 (Same as: Phenergan) Reglan No Notes: Memoria 1-20 (Same as: l 04:26: Reglan) [place] Acetaminoph No Notes: Do M emoria en 1-20 not exceed l 04:26: 4 gm/day. Dav 00 (Same as: Tylenol) Ondansetron No Notes: Henok vane 1-20 (Same as: l 04:26: Zofran) [place] 00 MEDICATION WASTE Product Size: 4 mg Product Wasted: ___ mg Morphine No Notes: Memoria 1-20 (Same l 04:26: as:MORPhin [place] 00 e Sulfate) Phenergan No Notes: Do Mem oria 1-20 not give l 04:26: IV push. [place] 00 (Same as: Phenergan) Reglan No Notes: Memoria 1-20 (Same as: l 04:26: Reglan) [place] 00 Acetaminoph No Notes: Do M emoria en 1-20 not exceed l 04:26: 4 gm/day. [place] 00 (Same as: Tylenol) Ondansetron No Notes: Henok vane 1-20 (Same as: l 04:26: Zofran) [place] 00 MEDICATION WASTE Product Size: 4 mg Product Wasted: ___ mg Morphine No Notes: Memoria 1-20 (Same l 04:26: as:MORPhin [place] 00 e Sulfate) Phenergan No Notes: Do Mem oria 1-20 not give l 04:26: IV push. [place] 00 (Same as: Phenergan) Reglan No Notes: Memoria 1-20 (Same as: l 04:26: Reglan) [place] 00 Acetaminoph No Notes: Do M emoria en 1-20 not exceed l 04:26: 4 gm/day. Dav 00 (Same as: Tylenol) Ondansetron No Notes: Henok vane 1-20 (Same as: l 04:26: Zofran) Dav 00 MEDICATION WASTE Product Size: 4 mg Product Wasted: ___ mg Morphine No Notes: Memoria 1-20 (Same l 04:26: as:MORPhin [place] 00 e Sulfate) Phenergan No Notes: Do Mem oria 1-20 not give l 04:26: IV push. Dav 00 (Same as: Phenergan) Reglan No Notes: Memoria 1-20 (Same as: l 04:26: Reglan) Dav Acetaminoph No Notes: Do M emoria en 1-20 not exceed l 04:26: 4 gm/day. [place] 00 (Same as: Tylenol) Reglan No Notes: [...] Notes: Memoria 1-20 (Same l 04:26: as:MORPhin [place] 00 e Sulfate) Phenergan No Notes: Do Mem oria 1-20 not give l 04:26: IV push. [place] 00 (Same as: Phenergan) Ondansetron No Notes: [...] vane 1-20 (Same as: l 04:26: Zofran) [place] 00 MEDICATION WASTE Product Size: 4 mg Product Wasted: ___ mg Morphine No Notes: Memoria 1-20 (Same l 04:26: as:MORPhin Dav 00 e Sulfate) Phenergan No Notes: Do Mem oria 1-20 not give l 04:26: IV push. [place] 00 (Same as: Phenergan) Reglan No Notes: Memoria 1-20 (Same as: l 04:26: Reglan) [place] 00 Acetaminoph No Notes: Do M emoria [...] Memoria 1-20 (Same as: l 04:26: Reglan) [place] 00 Acetaminoph No Notes: Do M emoria [...] 1-20 not give l 04:26: IV push. [place] 00 (Same as: Phenergan) Reglan No Notes: Memoria 1-20 (Same as: l 04:26: Reglan) [place] 00 Acetaminoph No Notes: Do M emoria en 1-20 not exceed l 04:26: 4 gm/day. Dav 00 (Same as: Tylenol) Ondansetron No Notes: Henok vane 1-20 (Same as: l 04:26: Zofran) [place] 00 MEDICATION WASTE Product Size: 4 mg Product Wasted: ___ mg Morphine No Notes: Memoria 1-20 (Same l 04:26: as:MORPhin Dav 00 e Sulfate) Phenergan No Notes: Do Mem oria 1-20 not give l 04:26: IV push. [place] 00 (Same as: Phenergan) Reglan No Notes: Memoria 1-20 (Same as: l 04:26: Reglan) [place] 00 Acetaminoph No Notes: Do M emoria en 1-20 not exceed l 04:26: 4 gm/day. [place] 00 (Same as: Tylenol) Ondansetron No Notes: Henok vane 1-20 (Same as: l 04:26: Zofran) Dav 00 MEDICATION WASTE Product Size: 4 mg Product Wasted: ___ mg Morphine No Notes: Memoria 1-20 (Same l 04:26: as:MORPhin [place] 00 e Sulfate) Phenergan No Notes: Do Mem oria 1-20 not give l 04:26: IV push. Dav 00 (Same as: Phenergan) Zofran ODT 2016-0 No Notes: Memor ia 1-20 (Same as: l 04:25: Zofran [place] 00 ODT) Zofran ODT 2016-0 No Notes: Memor ia 1-20 (Same as: l 04:25: Zofran [place] 00 ODT) Zofran ODT 2016-0 No Notes: Memor ia 1-20 (Same as: l 04:25: Zofran [place] 00 ODT) Zofran ODT 2015-0 No Notes: Memor ia 1-20 (Same as: l 04:25: Zofran [place] 00 ODT) Zofran ODT 2015-0 No Notes: Memor ia 1-20 (Same as: l 04:25: Zofran [place] 00 ODT) Zofran ODT 2015-0 No Notes: Memor ia 1-20 (Same as: l 04:25: Zofran Dav 00 ODT) Zofran ODT 2015-0 No Notes: Memor ia 1-20 (Same as: l 04:25: Zofran [place] 00 ODT) Zofran ODT 2015-0 No Notes: Memor ia 1-20 (Same as: l 04:25: Zofran [place] 00 ODT) Zofran ODT 2015-0 No Notes: Memor ia 1-20 (Same as: l 04:25: Zofran Dav 00 ODT) Zofran ODT 2015-0 No Notes: Memor ia 1-20 (Same as: l 04:25: Zofran [place] 00 ODT) Zofran ODT 2015-0 No Notes: Memor ia 1-20 (Same as: l 04:25: Zofran Dav 00 ODT) Zofran ODT 2015-0 No Notes: Memor ia 1-20 (Same as: l 04:25: Zofran Dav 00 ODT) Zofran ODT 2015-0 No Notes: Memor ia 1-20 (Same as: l 04:25: Zofran [place] 00 ODT) Zofran ODT 2015-0 No Notes: Memor ia 1-20 (Same as: l 04:25: Zofran [place] 00 ODT) Zofran ODT 2015-0 No Notes: Memor ia 1-20 (Same as: l 04:25: Zofran Dav 00 ODT) Zofran ODT 0 No Notes: Memor ia 1-20 (Same as: l 04:25: Zofran Dav 00 ODT) Zofran ODT 0 No Notes: Memor ia 1-20 (Same as: l 04:25: Zofran [place] 00 ODT) Zofran ODT No Notes: Memor [...] 1-20 Same as: l 0.09 04:23: Ventolin [place] MG/ACTUAT 00 HFA Metered Dose Inhaler [Proventil] 200 ACTUAT No Notes: Memor ia Albuterol 1-20 Same as: l 0.09 04:23: Ventolin [place] MG/ACTUAT 00 HFA Metered Dose Inhaler [Proventil] 200 ACTUAT 0 No Notes: Memor ia Albuterol 1-20 Same as: l 0.09 04:23: Ventolin [place] MG/ACTUAT 00 HFA Metered Dose Inhaler [Proventil] 200 ACTUAT 0 No Notes: Memor ia Albuterol 1-20 Same as: l 0.09 04:23: Ventolin [place] MG/ACTUAT 00 HFA Metered Dose Inhaler [Proventil] 200 ACTUAT 0 No Notes: Memor ia Albuterol 1-20 Same as: l 0.09 04:23: Ventolin [place] MG/ACTUAT 00 HFA Metered Dose Inhaler [Proventil] 200 ACTUAT 0 No Notes: Memor ia Albuterol 1-20 Same as: l 0.09 04:23: Ventolin Dav MG/ACTUAT 00 HFA Metered Dose Inhaler [Proventil] 200 ACTUAT No Notes: Memor ia Albuterol 1-20 Same as: l 0.09 04:23: Ventolin [place] MG/ACTUAT 00 HFA Metered Dose Inhaler [Proventil] [...] 1-20 Same as: l 0.09 04:23: Ventolin [place] MG/ACTUAT 00 HFA Metered Dose Inhaler [Proventil] 200 ACTUAT 0 No Notes: Memor ia Albuterol 1-20 Same as: l 0.09 04:23: Ventolin [place] MG/ACTUAT 00 HFA Metered Dose Inhaler [Proventil] 200 ACTUAT 0 No Notes: Memor ia Albuterol 1-20 Same as: l 0.09 04:23: Ventolin [place] MG/ACTUAT 00 HFA Metered Dose Inhaler [Proventil] 200 ACTUAT 0 No Notes: Memor ia Albuterol 1-20 Same as: l 0.09 04:23: Ventolin [place] MG/ACTUAT 00 HFA Metered Dose Inhaler [Proventil] 200 ACTUAT 0 No Notes: Memor ia Albuterol 1-20 Same as: l 0.09 04:23: Ventolin [place] MG/ACTUAT 00 HFA Metered Dose Inhaler [Proventil] 200 ACTUAT No Notes: Memor ia Albuterol 1-20 Same as: l 0.09 04:23: Ventolin [place] MG/ACTUAT 00 HFA Metered Dose Inhaler [Proventil] 200 ACTUAT No Notes: Memor ia Albuterol 1-20 Same as: l 0.09 04:23: Ventolin Dav MG/ACTUAT 00 HFA Metered Dose Inhaler [Proventil] 200 ACTUAT No Notes: Memor ia Albuterol 1-20 Same as: l 0.09 04:23: Ventolin [place] MG/ACTUAT 00 HFA Metered Dose Inhaler [Proventil] Melatonin No Melatoni Memoria 1mg -Pt's 1-20 n 1mg l own 04:19: -Pt's own Conway medication* 00 medication * , 1 mg, 1 tab, Drug form: MISC, Route: PO, ONCE, 09/17/15 22:19:00, Stop date: 09/17/15 22:19:00 Melatonin No Melatoni Memoria 1mg -Pt's 1-20 n 1mg l own 04:19: -Pt's own Conway medication* 00 medication * , 1 mg, 1 tab, Drug form: MISC, Route: PO, ONCE, 09/17/15 22:19:00, Stop date: 09/17/15 22:19:00 Melatonin No Melatoni [facility] 1mg -Pt's 1-20 n 1mg l own 04:19: -Pt's own Conway medication* 00 medication * , 1 mg, [...] n 1mg l own 04:19: -Pt's own Conway medication* 00 medication * , 1 mg, 1 tab, Drug form: MISC, Route: PO, ONCE, 09/17/15 22:19:00, Stop date: 09/17/15 22:19:00 Melatonin No Melatoni Memoria 1mg -Pt's 1-20 n 1mg l own 04:19: -Pt's own Conway medication* 00 medication * , 1 mg, [...] n 1mg l own 04:19: -Pt's own Conway medication* 00 medication * , 1 mg, [...] n 1mg l own 04:19: -Pt's own Conway medication* 00 medication * , 1 mg, 1 tab, Drug form: MISC, Route: PO, ONCE, 09/17/15 22:19:00, Stop date: 09/17/15 22:19:00 Melatonin No Melatoni Memoria 1mg -Pt's 1-20 n 1mg l own 04:19: -Pt's own Conway medication* 00 medication * , 1 mg, [...] 09/17/15 22:19:00, Stop date: 09/17/15 22:19:00 Melatonin 0 No Melatoni Memoria 1mg -Pt's 1-20 n 1mg l own 04:19: -Pt's own Conway medication* 00 medication * , 1 mg, [...] n 1mg l own 04:19: -Pt's own Conway medication* 00 medication * , 1 mg, [...] a 1-20 Route: PO, l 04:12: ONCE, Conway Dosing Weight 160.909, kg, Start date: 09/17/15 [...] date: 09/17/15 22:11:00, Stop date: 09/17/15 22:11:00 Melatonin No 1 mg, Memoria 1-20 Route: PO, l 04:11: ONCE, Dosing Weight 160.909, kg, Start date: 09/17/15 22:11:00, Stop date: 09/17/15 22:11:00 lamotrigine 2015-0 No Notes: Henok vane 150 MG Oral 1-20 (Same l Tablet 04:11: as:LaMICta Brigida nn l) lamotrigine 0 No Notes: Henok vane 150 [...] INHALATION l 0.09 04:10: , QID, PRN Conway MG/ACTUAT 00 as needed Metered for Dose wheezing, Inhaler 0 [Proventil] Refill(s) 200 ACTUAT Yes 2 puff, Henok vane Albuterol 1-20 INHALATION l 0.09 04:10: , QID, PRN [place] MG/ACTUAT 00 as needed Metered for Dose wheezing, Inhaler 0 [Proventil] Refill(s) 200 ACTUAT Yes 2 puff, Henok vane Albuterol 1-20 INHALATION l 0.09 04:10: , QID, PRN [place] MG/ACTUAT 00 as needed Metered for Dose wheezing, Inhaler 0 [Proventil] Refill(s) 200 ACTUAT Yes 2 puff, Henok vane Albuterol 1-20 INHALATION l 0.09 04:10: , QID, PRN Dav MG/ACTUAT 00 as needed Metered for Dose wheezing, Inhaler 0 [Proventil] Refill(s) 200 ACTUAT Yes 2 puff, Henok vane Albuterol 1-20 INHALATION l 0.09 04:10: , QID, PRN [place] MG/ACTUAT 00 as needed Metered for Dose wheezing, Inhaler 0 [Proventil] Refill(s) 200 ACTUAT Yes 2 puff, Henok vane Albuterol 1-20 INHALATION l 0.09 04:10: , QID, PRN [place] MG/ACTUAT 00 as needed Metered for Dose wheezing, Inhaler 0 [Proventil] Refill(s) 200 ACTUAT Yes 2 puff, Henok vane Albuterol 1-20 INHALATION l 0.09 04:10: , QID, PRN Dav MG/ACTUAT 00 as needed Metered for Dose wheezing, Inhaler 0 [Proventil] Refill(s) 200 ACTUAT Yes 2 puff, Henok vane Albuterol 1-20 INHALATION l 0.09 04:10: , QID, PRN [place] MG/ACTUAT 00 as needed Metered for Dose [...] INHALATION l 0.09 04:10: , QID, PRN [place] MG/ACTUAT 00 as needed Metered for Dose wheezing, Inhaler 0 [Proventil] Refill(s) 200 ACTUAT Yes 2 puff, Henok vane Albuterol 1-20 INHALATION l 0.09 04:10: , QID, PRN [place] MG/ACTUAT 00 as needed Metered for Dose wheezing, Inhaler 0 [Proventil] Refill(s) 200 ACTUAT 2016-0 Yes 2 puff, Henok vane Albuterol 1-20 INHALATION l 0.09 04:10: , QID, PRN Dav MG/ACTUAT 00 as needed Metered for Dose wheezing, Inhaler 0 [Proventil] Refill(s) 200 ACTUAT Yes 2 puff, Henok vane Albuterol 1-20 INHALATION l 0.09 04:10: , QID, PRN [place] MG/ACTUAT 00 as needed Metered for Dose [...] INHALATION l 0.09 04:10: , QID, PRN [place] MG/ACTUAT 00 as needed Metered for Dose wheezing, Inhaler 0 [Proventil] Refill(s) multivitami Yes 2 tab, Henok vane n 1-20 CHEW, BID, l 04:08: 0 [place] 00 Refill(s) multivitami Yes 2 tab, Henok vane n 1-20 CHEW, BID, l 04:08: 0 [place] 00 Refill(s) multivitami Yes 2 tab, Henok vane n 1-20 CHEW, BID, l 04:08: 0 [place] 00 Refill(s) multivitami Yes 2 tab, Henok [...] n 1-20 CHEW, BID, l 04:08: 0 [place] 00 Refill(s) multivitami 2016-0 Yes 2 tab, Henok vane n 1-20 CHEW, BID, l 04:08: 0 Dav 00 Refill(s) multivitami 2016-0 Yes 2 tab, Henok vane n 1-20 CHEW, BID, l 04:08: 0 Dav 00 Refill(s) multivitami 2016-0 Yes 2 tab, Henok vane n 1-20 CHEW, BID, l 04:08: 0 [place] 00 Refill(s) multivitami 2016-0 Yes 2 tab, Henok vane n 1-20 CHEW, BID, l 04:08: 0 Dav 00 Refill(s) multivitami 2016-0 Yes 2 tab, Henok vane n 1-20 CHEW, BID, l 04:08: 0 [place] 00 Refill(s) multivitami 2016-0 Yes 2 tab, Henok vane n 1-20 CHEW, BID, l 04:08: 0 [place] 00 Refill(s) multivitami 2016-0 Yes 2 tab, Henok vane n 1-20 CHEW, BID, l 04:08: 0 [place] 00 Refill(s) multivitami 2016-0 Yes 2 tab, Henok vane n 1-20 CHEW, BID, l 04:08: 0 [place] 00 Refill(s) multivitami 2016-0 Yes 2 tab, Henok vane n 1-20 CHEW, BID, l 04:08: 0 Dav 00 Refill(s) multivitami 2016-0 Yes 2 tab, Henok vane n 1-20 CHEW, BID, l 04:08: 0 Dav 00 Refill(s) multivitami 2016-0 Yes 2 tab, Henok vane n 1-20 CHEW, BID, l 04:08: 0 [place] 00 Refill(s) multivitami 2016-0 Yes 2 tab, Henok vane n 1-20 CHEW, BID, l 04:08: 0 Dav 00 Refill(s) multivitami 2016-0 Yes 2 tab, Henok vane n 1-20 CHEW, BID, l 04:08: 0 Dav 00 Refill(s) Ondansetron 2016-0 Yes 8 mg [...] Yes 10 mg = 1 M emoria ojhn 10 MG 1-20 tab, PO, l Oral Tablet 04:07: Q6H, PRN He rmann [Reglan] 00 Nausea & Vomiting, 0 Refill(s) Ondansetron 2016-0 Yes 8 mg = 1 Me moria 8 MG 1-20 tab, PO, l Disintegrat 04:07: Q8H, PRN He rmann ing Tablet 00 as needed [Zofran] for nausea/vom iting, 0 Refill(s) Ondansetron 2016-0 Yes 8 mg [...] [Reglan] 00 Nausea & Vomiting, 0 Refill(s) Metoclopram 2016-0 Yes 10 mg [...] Memoria 1-20 (Same as: l 03:49: Reglan) [place] 00 Reglan No Notes: Memoria 1-20 (Same as: l 03:49: Reglan) Dav 00 Reglan No Notes: Memoria 1-20 (Same as: l 03:49: Reglan) [place] 00 Reglan No Notes: Memoria 1-20 (Same as: l 03:49: Reglan) [place] 00 Reglan No Notes: Memoria 1-20 (Same [...] Memoria 1-20 (Same as: l 03:49: Reglan) [place] Reglan No Notes: Memoria 1-20 (Same as: l 03:49: Reglan) [place] Reglan No Notes: Memoria 1-20 (Same as: l 03:49: Reglan) [place] 00 Reglan No Notes: Memoria 1-20 (Same as: l 03:49: Reglan) [place] 00 Reglan No Notes: Memoria 1-20 (Same as: l 03:49: Reglan) [place] 00 Reglan No Notes: Memoria 1-20 (Same as: l 03:49: Reglan) Dav Reglan No Notes: Memoria 1-20 (Same as: l 03:49: Reglan) [place] Reglan No Notes: Memoria 1-20 (Same as: l 03:49: Reglan) Dav Reglan No Notes: Memoria 1-20 (Same as: l 03:49: Reglan) Dav Reglan No Notes: Memoria 1-20 (Same as: l 03:49: Reglan) [place] Reglan No Notes: Memoria 1-20 (Same as: l 03:49: Reglan) Dav Ondansetron No Notes: Henok vane 4 MG [...] 0.9% 1-20 (Same as: l 00:07: BD [place] 00 Posiflush) Ondansetron No Notes: Henok vane [...] 0.9% 1-20 (Same as: l 00:07: BD [place] 00 Posiflush) Ondansetron No Notes: Henok vane [...] 0.9% 1-20 (Same as: l 00:07: BD [place] 00 Posiflush) Ondansetron No Notes: Henok vane [...] BD Dav 00 Posiflush) Ondansetron No Notes: Henko vane 4 MG 1-20 (Same as: l Disintegrat 00:07: Zofran Herm kailash ing Tablet 00 ODT) Saline No Notes: Memoria Flush 0.9% 1-20 (Same as: l 00:07: BD [place] 00 Posiflush) Ondansetron No Notes: Henok vane 4 MG 1-20 (Same as: l Disintegrat 00:07: Zofran Herm kailash ing Tablet 00 ODT) Saline No Notes: Memoria Flush 0.9% 1-20 (Same as: l 00:07: BD [place] 00 Posiflush) Ondansetron No Notes: Henok vane [...] 0.9% 1-20 (Same as: l 00:07: BD [place] 00 Posiflush) Ondansetron No Notes: Henok vane 4 MG 1-20 (Same as: l Disintegrat 00:07: Zofran Herm kailash ing Tablet 00 ODT) Saline No Notes: Memoria Flush 0.9% 1-20 (Same as: l 00:07: BD [place] 00 Posiflush) Ondansetron No Notes: Henok vane [...] 0.9% 1-20 (Same as: l 00:07: BD [place] 00 Posiflush) Ondansetron No Notes: Henok vane 4 MG 1-20 (Same as: l Disintegrat 00:07: Zofran Herm kailash ing Tablet 00 ODT) Saline No Notes: Memoria Flush 0.9% 1-20 (Same as: l 00:07: BD [place] 00 Posiflush) Ondansetron No Notes: Henok vane 4 MG 1-20 (Same as: l Disintegrat 00:07: Zofran Herm kailash ing Tablet 00 ODT) Saline No Notes: Memoria Flush 0.9% 1-20 (Same as: l 00:07: BD [place] 00 Posiflush) Ondansetron No Notes: Henok vane [...] # l / 22:06: 60 mL, 0 [place] Hydrocodone 00 Refill(s) Bitartrate 0.667 MG/ML Oral [...] # l / 22:06: 60 mL, 0 [place] Hydrocodone 00 Refill(s) Bitartrate 0.667 MG/ML Oral [...] # l / 22:06: 60 mL, 0 [place] Hydrocodone 00 Refill(s) Bitartrate 0.667 MG/ML Oral [...] # l / 22:06: 60 mL, 0 [place] Hydrocodone 00 Refill(s) Bitartrate 0.667 MG/ML Oral [...] # l / 22:06: 60 mL, 0 [place] Hydrocodone 00 Refill(s) Bitartrate 0.667 MG/ML Oral [...] # l / 22:06: 60 mL, 0 [place] Hydrocodone 00 Refill(s) Bitartrate 0.667 MG/ML Oral [...] # l / 22:06: 60 mL, 0 [place] Hydrocodone 00 Refill(s) Bitartrate 0.667 MG/ML Oral [...] # l / 22:06: 60 mL, 0 [place] Hydrocodone 00 Refill(s) Bitartrate 0.667 MG/ML Oral [...] # l / 22:06: 60 mL, 0 [place] Hydrocodone 00 Refill(s) Bitartrate 0.667 MG/ML Oral [...] # l / 22:06: 60 mL, 0 [place] Hydrocodone 00 Refill(s) Bitartrate 0.667 MG/ML Oral [...] # l / 22:06: 60 mL, 0 [place] Hydrocodone 00 Refill(s) Bitartrate 0.667 MG/ML Oral [...] # l / 22:06: 60 mL, 0 [place] Hydrocodone 00 Refill(s) Bitartrate 0.667 MG/ML Oral [...] Memoria 2-28 Route: l 18:38: IVP, Drug [place] 00 form: INJ, ONCE, Dosing Weight 162.273, kg, Priority: STAT, Start date: 08/26/15 12:38:00, Stop date: 08/26/15 12:38:00 Morphine 2014- No 6 mg, Memoria 2-28 Route: l 18:38: IVP, Drug Dav 00 form: INJ, ONCE, Dosing Weight 162.273, kg, Priority: STAT, Start date: 08/26/15 12:38:00, Stop date: 08/26/15 12:38:00 Morphine 2014- No 6 mg, Memoria 2-28 Route: l 18:38: IVP, Drug [place] 00 form: INJ, ONCE, Dosing Weight 162.273, [...] Memoria 2-28 Route: l 18:38: IVP, Drug [place] 00 form: INJ, ONCE, Dosing Weight 162.273, [...] Memoria 2-28 Route: l 18:38: IVP, Drug [place] 00 form: INJ, ONCE, Dosing Weight 162.273, kg, Priority: STAT, Start date: 08/26/15 12:38:00, Stop date: 08/26/15 12:38:00 Morphine 2014- No 6 mg, Memoria 2-28 Route: l 18:38: IVP, Drug [place] 00 form: INJ, ONCE, Dosing Weight 162.273, kg, Priority: STAT, Start date: 08/26/15 12:38:00, Stop date: 08/26/15 12:38:00 Morphine 2014- No 6 mg, Memoria 2-28 Route: l 18:38: IVP, Drug Dav 00 form: INJ, ONCE, Dosing Weight 162.273, kg, Priority: STAT, Start date: 08/26/15 12:38:00, Stop date: 08/26/15 12:38:00 Morphine 2014- No 6 mg, Memoria 2-28 Route: l 18:38: IVP, Drug [place] 00 form: INJ, ONCE, Dosing Weight 162.273, [...] Memoria 2-28 Route: l 18:38: IVP, Drug [place] 00 form: INJ, ONCE, Dosing Weight 162.273, kg, Priority: STAT, Start date: 08/26/15 12:38:00, Stop date: 08/26/15 12:38:00 Morphine 2014- No 6 mg, Memoria 2-28 Route: l 18:38: IVP, Drug [place] 00 form: INJ, ONCE, Dosing Weight 162.273, kg, Priority: STAT, Start date: 08/26/15 12:38:00, Stop date: 08/26/15 12:38:00 Morphine 2014- No 6 mg, Memoria 2-28 Route: l 18:38: IVP, Drug Dav 00 form: INJ, ONCE, Dosing Weight 162.273, kg, Priority: STAT, Start date: 08/26/15 12:38:00, Stop date: 08/26/15 12:38:00 Zofran 2014- No 4 mg, Memoria 2-28 Route: l 18:37: IVP, Drug [place] 00 form: INJ, ONCE, Dosing Weight 162.273, kg, Priority: STAT, Start date: 08/26/15 12:37:00, Stop date: 08/26/15 12:37:00 Zofran 2014- No 4 mg, Memoria 2-28 Route: l 18:37: IVP, Drug [place] 00 form: INJ, ONCE, Dosing Weight 162.273, kg, Priority: STAT, Start date: 08/26/15 12:37:00, Stop date: 08/26/15 12:37:00 Zofran 2014- No 4 mg, Memoria 2-28 Route: l 18:37: IVP, Drug [place] 00 form: INJ, ONCE, Dosing Weight 162.273, kg, Priority: STAT, Start date: 08/26/15 12:37:00, Stop date: 08/26/15 12:37:00 Zofran 2014- No 4 mg, Memoria 2-28 Route: l 18:37: IVP, Drug Dav 00 form: INJ, ONCE, Dosing Weight 162.273, kg, Priority: STAT, Start date: 08/26/15 12:37:00, Stop date: 08/26/15 12:37:00 Zofran 2014- No 4 mg, Memoria 2-28 Route: l 18:37: IVP, Drug [place] 00 form: INJ, ONCE, Dosing Weight 162.273, [...] Memoria 2-28 Route: l 18:37: IVP, Drug [place] 00 form: INJ, ONCE, Dosing Weight 162.273, kg, Priority: STAT, Start date: 08/26/15 12:37:00, Stop date: 08/26/15 12:37:00 Zofran 2014-08 No 4 mg, Memoria 2-28 Route: l 18:37: IVP, Drug Dav 00 form: INJ, ONCE, Dosing Weight 162.273, kg, Priority: STAT, Start date: 08/26/15 12:37:00, Stop date: 08/26/15 12:37:00 Zofran 2014- No 4 mg, Memoria 2-28 Route: l 18:37: IVP, Drug [place] 00 form: INJ, ONCE, Dosing Weight 162.273, kg, Priority: STAT, Start date: 08/26/15 12:37:00, Stop date: 08/26/15 12:37:00 Zofran 2014- No 4 mg, Memoria 2-28 Route: l 18:37: IVP, Drug Dav 00 form: INJ, ONCE, Dosing Weight 162.273, kg, Priority: STAT, Start date: 08/26/15 12:37:00, Stop date: 08/26/15 12:37:00 Zofran 2014- No 4 mg, Memoria 2-28 Route: l 18:37: IVP, Drug [place] 00 form: INJ, ONCE, Dosing Weight 162.273, kg, Priority: STAT, Start date: 08/26/15 12:37:00, Stop date: 08/26/15 12:37:00 Zofran 2014-08 No 4 mg, Memoria 2-28 Route: l 18:37: IVP, Drug [place] 00 form: INJ, ONCE, Dosing Weight 162.273, kg, Priority: STAT, Start date: 08/26/15 12:37:00, Stop date: 08/26/15 12:37:00 Zofran 2014-08 No 4 mg, Memoria 2-28 Route: l 18:37: IVP, Drug [place] 00 form: INJ, ONCE, Dosing Weight 162.273, [...] Memoria 2-28 Route: l 18:37: IVP, Drug [place] 00 form: INJ, ONCE, Dosing Weight 162.273, kg, Priority: STAT, Start date: 08/26/15 12:37:00, Stop date: 08/26/15 12:37:00 Sodium 2014-1 No 1,000 mL, Memori a Chloride 2-28 1,000 l 0.154 16:47: ml/hr, [place] MEQ/ML 00 Infuse Injectable Over: 1 Solution [...] Chloride 2-28 1,000 l 0.154 16:47: ml/hr, [place] MEQ/ML 00 Infuse Injectable Over: 1 Solution Hour, Route: IV, ONCE, Priority: STAT, Dosing Weight 162.273 kg, Start date: 08/26/15 10:47:00, Duration: 1 doses or times, Stop date: 08/26/15 10:47:00 Sodium 2014-1 No 1,000 mL, Memori a Chloride 2-28 1,000 l 0.154 16:47: ml/hr, [place] MEQ/ML 00 Infuse Injectable Over: 1 Solution [...] Chloride 2-28 1,000 l 0.154 16:47: ml/hr, [place] MEQ/ML 00 Infuse Injectable Over: 1 Solution Hour, Route: IV, ONCE, Priority: STAT, Dosing Weight 162.273 kg, Start date: 08/26/15 10:47:00, Duration: 1 doses or times, Stop date: 08/26/15 10:47:00 Sodium 2014-1 No 1,000 mL, Memori a Chloride 2-28 1,000 l 0.154 16:47: ml/hr, [place] MEQ/ML 00 Infuse Injectable Over: 1 Solution [...] Chloride 2-28 1,000 l 0.154 16:47: ml/hr, [place] MEQ/ML 00 Infuse Injectable Over: 1 Solution [...] Chloride 2-28 1,000 l 0.154 16:47: ml/hr, [place] MEQ/ML 00 Infuse Injectable Over: 1 Solution Hour, Route: IV, ONCE, Priority: STAT, Dosing Weight 162.273 kg, Start date: 08/26/15 10:47:00, Duration: 1 doses or times, Stop date: 08/26/15 10:47:00 Reglan 2014-08 No Notes: Memoria 2-19 (Same as: l 06:00: Reglan) [place] 00 Take 30 min before meals Reglan 2014-08 No Notes: Memoria 2-19 (Same as: l 06:00: Reglan) Dav 00 Take 30 min before meals Reglan 2014-08 No Notes: Memoria 2-19 (Same as: l 06:00: Reglan) Dav 00 Take 30 min before meals Reglan 2014-08 No Notes: Memoria 2-19 (Same as: l 06:00: Reglan) [place] 00 Take 30 min before meals Reglan 2014-08 No Notes: Memoria 2-19 (Same as: l 06:00: Reglan) Dav 00 Take 30 min before meals Reglan 2014-08 No Notes: Memoria 2-19 (Same as: l 06:00: Reglan) [place] 00 Take 30 min before meals Reglan 2014-08 No Notes: Memoria 2-19 (Same as: l 06:00: Reglan) [place] 00 Take 30 min before meals Reglan 2014-08 No Notes: Memoria 2-19 (Same as: l 06:00: Reglan) Dav 00 Take 30 min before meals Reglan 2014-08 No Notes: Memoria 2-19 (Same as: l 06:00: Reglan) Dav 00 Take 30 min before meals Reglan 2014-08 No Notes: Memoria 2-19 (Same as: l 06:00: Reglan) [place] 00 Take 30 min before meals Reglan 2014-08 No Notes: Memoria 2-19 (Same as: l 06:00: Reglan) [place] 00 Take 30 min before meals Reglan 2014-08 No Notes: Memoria 2-19 (Same as: l 06:00: Reglan) [place] 00 Take 30 min before meals Reglan 2014-08 No Notes: Memoria 2-19 (Same as: l 06:00: Reglan) Dav 00 Take 30 min before meals Reglan 2014-08 No Notes: Memoria 2-19 (Same as: l 06:00: Reglan) [place] 00 Take 30 min before meals Reglan 2014-08 No Notes: Memoria 2-19 (Same as: l 06:00: Reglan) [place] 00 Take 30 min before meals Reglan 2014-08 No Notes: Memoria 2-19 (Same as: l 06:00: Reglan) Dav 00 Take 30 min before meals Reglan 2014-08 No Notes: Memoria 2-19 (Same as: l 06:00: Reglan) [place] 00 Take 30 min before meals Reglan 2014-08 No Notes: Memoria 2-19 (Same as: l 06:00: Reglan) [place] 00 Take 30 min before meals Reglan 2014-08 No Notes: Memoria 2-19 (Same as: l 06:00: Reglan) [place] 00 Take 30 min before meals Reglan 2014-08 No Notes: Memoria 2-19 (Same as: l 06:00: Reglan) Dav 00 Take 30 min before meals Reglan 2014-08 No Notes: Memoria 2-19 (Same as: l 06:00: Reglan) Dav 00 Take 30 min before meals Pepcid 2014-08 No Notes: Memoria 2-19 (Same as: l 03:00: Pepcid) Dav Pepcid 2014-08 No Notes: Memoria 2-19 (Same as: l 03:00: Pepcid) Dav Pepcid 2014-08 No Notes: Memoria 2-19 (Same as: l 03:00: Pepcid) [place] Pepcid 2014-08 No Notes: Memoria 2-19 (Same as: l 03:00: Pepcid) Dav Pepcid 2014-08 No Notes: Memoria 2-19 (Same as: l 03:00: Pepcid) Dav Pepcid 2014-08 No Notes: Memoria 2-19 (Same as: l 03:00: Pepcid) [place] Pepcid 2014-08 No Notes: Memoria 2-19 (Same as: l 03:00: Pepcid) Dav Pepcid 2014-08 No Notes: Memoria 2-19 (Same as: l 03:00: Pepcid) Dav Pepcid 2014-08 No Notes: Memoria 2-19 (Same as: l 03:00: Pepcid) [place] Pepcid 2014-08 No Notes: Memoria 2-19 (Same as: l 03:00: Pepcid) [place] Pepcid 2014-08 No Notes: Memoria 2-19 (Same as: l 03:00: Pepcid) Dav Pepcid 2014-08 No Notes: Memoria 2-19 (Same as: l 03:00: Pepcid) Dav Pepcid 2014-08 No Notes: Memoria 2-19 (Same as: l 03:00: Pepcid) [place] Pepcid 2014-08 No Notes: Memoria 2-19 (Same as: l 03:00: Pepcid) Dav Pepcid 2014-08 No Notes: Memoria 2-19 (Same as: l 03:00: Pepcid) Dav Pepcid 2014-08 No Notes: Memoria 2-19 (Same as: l 03:00: Pepcid) [place] Pepcid 2014-08 No Notes: Memoria 2-19 (Same as: l 03:00: Pepcid) Dav Pepcid 2014-08 No Notes: Memoria 2-19 (Same as: l 03:00: Pepcid) [place] 00 Pepcid 2014-08 No Notes: Memoria 2-19 (Same as: l 03:00: Pepcid) [place] Pepcid 2014-08 No Notes: Memoria 2-19 (Same as: l 03:00: Pepcid) Dav Pepcid 2014-08 No Notes: Memoria 2-19 (Same as: l 03:00: Pepcid) [place] 00 Acetaminoph 2014-08 No Notes: Do M [...] not exceed l / 17:48: 4gm/day of [place] Hydrocodone 00 acetaminop Bitartrate hen. (Same 0.667 MG/ML as: Oral Zolvit) Solution Acetaminoph 2014-08 No Notes: Do M emoria en 20 MG/ML 2-18 not exceed l / 17:48: 4gm/day of [place] Hydrocodone 00 acetaminop Bitartrate hen. (Same 0.667 [...] Notes: Do M emoria en 20 MG/ML 218 not exceed l / 17:48: 4gm/day of [place] Hydrocodone 00 acetaminop Bitartrate hen. (Same 0.667 MG/ML as: Oral Zolvit) Solution Acetaminoph 2014-08 No Notes: Do M emoria en 20 MG/ML 218 not exceed l / 17:48: 4gm/day of [place] Hydrocodone 00 acetaminop Bitartrate hen. (Same 0.667 MG/ML as: Oral Zolvit) Solution Acetaminoph 2014-08 No Notes: Do M emoria en 20 MG/ML 218 not exceed l / 17:48: 4gm/day of [place] Hydrocodone 00 acetaminop Bitartrate hen. (Same 0.667 [...] not exceed l / 17:48: 4gm/day of [place] Hydrocodone 00 acetaminop Bitartrate hen. (Same 0.667 [...] ia 2-18 (Same As: l 15:00: Wellbutrin [place] 00 ) Prinivil 2014-08 No Notes: Memoria 2-18 (Same as: l 15:00: Prinivil, [place] 00 Zestril) hydrochloro 2014-08 No Notes: Henok [...] 2-18 (Same As: l 15:00: Wellbutrin Dav ) ivil 2014-08 No Notes: Memoria 2-18 (Same as: l 15:00: Prinivil, Dav Zestril) hydrochloro 2014-08 No Notes: Henok vane [...] PO, l MG / 15:00: Drug Form: [place] Lisinopril 00 TAB, 20 MG Oral Dosing Tablet Weight 168.636, kg, Daily, Start date: 08/16/15 9:00:00, Duration: 30 day, Stop date: 09/14/15 9:00:00 Wellbutrin 2014-08 No Notes: Memor ia 2-18 (Same As: l 15:00: Wellbutrin Dav 00 ) Prinivil 2014-08 No Notes: Memoria 2-18 (Same as: l 15:00: Prinivil, [place] 00 Zestril) hydrochloro 2014-08 No Notes: Henok [...] ia 2-18 (Same As: l 15:00: Wellbutrin [place] 00 ) Prinivil 2014-08 No Notes: Memoria 2-18 (Same as: l 15:00: Prinivil, [place] 00 Zestril) hydrochloro 2014-08 No Notes: Henok [...] PO, l MG / 15:00: Drug Form: [place] Lisinopril 00 TAB, 20 MG Oral Dosing Tablet Weight 168.636, kg, Daily, Start date: 08/16/15 9:00:00, Duration: 30 day, Stop date: 09/14/15 9:00:00 Wellbutrin 2014-08 No Notes: Memor ia 2-18 (Same As: l 15:00: Wellbutrin [place] 00 ) Prinivil 2014-08 No Notes: Memoria 2-18 (Same as: l 15:00: Prinivil, [place] 00 Zestril) hydrochloro 2014-08 No Notes: Henok [...] PO, l MG / 15:00: Drug Form: [place] Lisinopril 00 TAB, 20 MG Oral Dosing Tablet Weight 168.636, kg, Daily, Start date: 08/16/15 9:00:00, Duration: 30 day, Stop date: 09/14/15 9:00:00 Wellbutrin 2014-08 No Notes: Memor ia 2-18 (Same As: l 15:00: Wellbutrin Dav 00 ) Prinivil 2014-08 No Notes: Memoria 2-18 (Same as: l 15:00: Prinivil, [place] 00 Zestril) hydrochloro 2014-08 No Notes: Henok [...] ia 2-18 (Same As: l 15:00: Wellbutrin [place] 00 ) Prinivil 2014-08 No Notes: Memoria 2-18 (Same as: l 15:00: Prinivil, [place] 00 Zestril) hydrochloro 2014-08 No Notes: Henok [...] ia 2-18 (Same As: l 15:00: Wellbutrin [place] 00 ) ivil 2014-08 No Notes: Memoria 2-18 (Same as: l 15:00: Prinivil, [place] 00 Zestril) hydrochloro 2014-08 No Notes: Henok [...] ia 2-18 (Same As: l 15:00: Wellbutrin [place] 00 ) Prinivil 2014-08 No Notes: Memoria 2-18 (Same as: l 15:00: Prinivil, Dav 00 Zestril) hydrochloro 2014-08 No Notes: Henok vane thiazide 25 2-18 (Same as: l mg oral 15:00: Hydrodiuri Herm kailsah tablet 00 l) With food. pneumococca 2014-08 [...] PO, l MG / 15:00: Drug Form: [place] Lisinopril 00 TAB, 20 MG Oral Dosing [...] ia 2-18 (Same As: l 15:00: Wellbutrin [place] 00 ) Prinivil 2014-08 No Notes: Memoria [...] PO, l MG / 15:00: Drug Form: [place] Lisinopril 00 TAB, 20 MG Oral Dosing Tablet Weight 168.636, kg, Daily, Start date: 08/16/15 9:00:00, Duration: 30 day, Stop date: 09/14/15 9:00:00 Wellbutrin 2014-08 No Notes: Memor ia 2-18 (Same As: l 15:00: Wellbutrin Dav 00 ) Prinivil 2014-08 No Notes: Memoria 2-18 (Same as: l 15:00: Prinivil, Dav 00 Zestril) hydrochloro 2014-08 No Notes: [place] vane thiazide 25 2-18 (Same as: l [...] ia 2-18 (Same As: l 15:00: Wellbutrin [place] 00 ) Prinivil 2014-08 No Notes: Memoria [...] ia 2-18 (Same As: l 15:00: Wellbutrin [place] 00 ) Prinivil 2014-08 No Notes: Memoria [...] 2-18 (Same As: l 15:00: Wellbutrin ) Prinivil 2014-08 No Notes: Memoria 2-18 (Same as: l 15:00: Prinivil, [place] 00 Zestril) hydrochloro 2014-08 No Notes: Henok [...] ia 2-18 (Same As: l 15:00: Wellbutrin [place] 00 ) Prinivil 2014-08 No Notes: Memoria [...] PO, l MG / 15:00: Drug Form: [place] Lisinopril 00 TAB, 20 MG Oral Dosing [...] ia 2-18 (Same As: l 15:00: Wellbutrin [place] 00 ) Prinivil 2014-08 No Notes: Memoria 2-18 (Same as: l 15:00: Prinivil, [place] 00 Zestril) hydrochloro 2014-08 No Notes: Henok [...] ia 2-18 (Same As: l 15:00: Wellbutrin [place] 00 ) Prinivil 2014-08 No Notes: Memoria [...] PO, l MG / 15:00: Drug Form: [place] Lisinopril 00 TAB, 20 MG Oral Dosing [...] ia 2-18 (Same as: l 05:00: Lovenox) [place] Enoxaparin 2014-08 No Notes: Memor ia 2-18 (Same as: l 05:00: Lovenox) Dav Enoxaparin 2014-08 No Notes: Memor ia 2-18 (Same as: l 05:00: Lovenox) Dav 00 Enoxaparin 2014-08 No Notes: Memor ia 2-18 (Same as: l 05:00: Lovenox) [place] 00 Enoxaparin 2014-08 No Notes: Memor ia 2-18 (Same as: l 05:00: Lovenox) [place] 00 Enoxaparin 2014-08 No Notes: Memor ia 2-18 (Same as: l 05:00: Lovenox) Dav 00 Enoxaparin 2014-08 No Notes: Memor ia 2-18 (Same as: l 05:00: Lovenox) [place] 00 Enoxaparin 2014-08 No Notes: Memor ia 2-18 (Same as: l 05:00: Lovenox) [place] 00 Enoxaparin 2014-08 No Notes: Memor ia 2-18 (Same as: l 05:00: Lovenox) Enoxaparin 2014-08 No Notes: Memor ia 2-18 (Same as: l 05:00: Lovenox) [place] Enoxaparin 2014-08 No Notes: Memor ia 2-18 (Same as: l 05:00: Lovenox) Dav Enoxaparin 2014-08 No Notes: Memor ia 2-18 (Same as: l 05:00: Lovenox) Dav Enoxaparin 2014-08 No Notes: Memor ia 2-18 (Same as: l 05:00: Lovenox) [place] 00 Enoxaparin 2014-08 No Notes: [facility] 2-18 (Same as: l 05:00: Lovenox) Dav Enoxaparin 2014-08 No Notes: [facility] 2-18 (Same as: l 05:00: Lovenox) Dav Enoxaparin 2014-08 No Notes: [facility] 2-18 (Same as: l 05:00: Lovenox) Dav Enoxaparin 2014-08 No Notes: [facility] 2-18 (Same as: l 05:00: Lovenox) [place] Enoxaparin 2014-08 No Notes: [facility] 2-18 (Same as: l 05:00: Lovenox) Dav Enoxaparin 2014-08 No Notes: [facility] 2-18 (Same as: l 05:00: Lovenox) Dav 00 Enoxaparin 2014-08 No Notes: [facility] 2-18 (Same as: l 05:00: Lovenox) [place] 00 Enoxaparin 2014-08 No Notes: [facility] 2-18 (Same as: l 05:00: Lovenox) [place] 00 Famotidine 2014-08 No Notes: [facility] 2-18 (Same as: l 03:00: Pepcid) Dav 00 Can be dilute in 5-10cc NS IVP: Slow IV push over at least 2 minutes. Lamictal 2014-08 No Notes: [facility] 2-18 (Same l 03:00: as:LaMICta [place] 00 l) Strattera 2014-08 No 80 mg, [facility] a 2-18 Route: PO, l 03:00: Drug form: [place] 00 CAP, Bedtime, Dosing Weight 168.636, kg, Start date: 08/15/15 21:00:00, Duration: 30 day, Stop date: 09/13/15 21:00:00 Lamictal 2014-08 No Notes: [facility] 2-18 (Same l 03:00: as:LaMICta Dav 00 l) Strattera 2014-08 No 80 mg, [facility] a 2-18 Route: PO, l 03:00: Drug form: [place] 00 CAP, Bedtime, Dosing Weight 168.636, kg, Start date: 08/15/15 21:00:00, Duration: 30 day, Stop date: 09/13/15 21:00:00 Famotidine 2014-08 No Notes: [facility] 2-18 (Same as: l 03:00: Pepcid) [place] 00 Can be dilute in 5-10cc NS IVP: Slow IV push over at least 2 minutes. Lamictal 2014-08 No Notes: [facility] 2-18 (Same l 03:00: as:LaMICta [place] 00 l) Strattera 2014-08 No 80 mg, [facility] a 2-18 Route: PO, l 03:00: Drug form: Dav 00 CAP, Bedtime, Dosing Weight 168.636, kg, Start date: 08/15/15 21:00:00, Duration: 30 day, Stop date: 09/13/15 21:00:00 Famotidine 2014-08 No Notes: [facility] 2-18 (Same as: l 03:00: Pepcid) [place] 00 Can be dilute in 5-10cc NS IVP: Slow IV push over at least 2 minutes. Lamictal 2014-08 No Notes: [facility] 2-18 (Same l 03:00: as:LaMICta [place] 00 l) Strattera 2014-08 No 80 mg, [...] Notes: [facility] 2-18 (Same l 03:00: as:LaMICta [place] 00 l) Strattera 2014-08 No 80 mg, [facility] a 2-18 Route: PO, l 03:00: Drug form: Dav 00 CAP, Bedtime, Dosing Weight 168.636, kg, Start date: 08/15/15 21:00:00, Duration: 30 day, Stop date: 09/13/15 21:00:00 Famotidine 2014-08 No Notes: [facility] 2-18 (Same as: l 03:00: Pepcid) Dva 00 Can be dilute in 5-10cc NS IVP: Slow IV push over at least 2 minutes. Lamictal 2014-08 No Notes: [facility] 2-18 (Same l 03:00: as:LaMICta [place] 00 l) Strattera 2014-08 No 80 mg, Memori a 2-18 Route: PO, l 03:00: Drug form: [place] 00 CAP, Bedtime, Dosing Weight 168.636, kg, [...] 2-18 Route: PO, l 03:00: Drug form: [place] 00 CAP, Bedtime, Dosing Weight 168.636, kg, Start date: 08/15/15 21:00:00, Duration: 30 day, Stop date: 09/13/15 21:00:00 Famotidine 2014-08 No Notes: Memor ia 2-18 (Same as: l 03:00: Pepcid) [place] 00 Can be dilute in 5-10cc NS IVP: Slow IV push over at least 2 minutes. Lamictal 2014-08 No Notes: Memoria 2-18 (Same l 03:00: as:LaMICta Dav 00 l) Strattera 2014-08 No 80 mg, Memori a 2-18 Route: PO, l 03:00: Drug form: [place] 00 CAP, Bedtime, Dosing Weight 168.636, kg, [...] ia 2-18 (Same as: l 03:00: Pepcid) [place] 00 Can be dilute in 5-10cc NS [...] ia 2-18 (Same as: l 03:00: Pepcid) [place] 00 Can be dilute in 5-10cc NS IVP: Slow IV push over at least 2 minutes. Lamictal 2014-08 No Notes: Memoria 2-18 (Same l 03:00: as:LaMICta [place] 00 l) Strattera 2014-08 No 80 mg, Memori a 2-18 Route: PO, l 03:00: Drug form: [place] 00 CAP, Bedtime, Dosing Weight 168.636, kg, Start date: 08/15/15 21:00:00, Duration: 30 day, Stop date: 09/13/15 21:00:00 Famotidine 2014-08 No Notes: Memor ia 2-18 (Same as: l 03:00: Pepcid) Dav 00 Can be dilute in 5-10cc NS IVP: Slow IV push over at least 2 minutes. Lamictal 2014-08 No Notes: Memoria 2-18 (Same l 03:00: as:LaMICta [place] 00 l) Strattera 2014-08 No 80 mg, Memori a 2-18 Route: PO, l 03:00: Drug form: [place] 00 CAP, Bedtime, Dosing Weight 168.636, kg, Start date: 08/15/15 21:00:00, Duration: 30 day, Stop date: 09/13/15 21:00:00 Famotidine 2014-08 No Notes: Memor ia 2-18 (Same as: l 03:00: Pepcid) [place] 00 Can be dilute in 5-10cc NS IVP: Slow IV push over at least 2 minutes. Lamictal 2014-08 No Notes: Memoria 2-18 (Same l 03:00: as:LaMICta Dav 00 l) Strattera 2014-08 No 80 mg, Memori a 2-18 Route: PO, l 03:00: Drug form: [place] 00 CAP, Bedtime, Dosing Weight 168.636, kg, [...] 2-18 Route: PO, l 03:00: Drug form: [place] 00 CAP, Bedtime, Dosing Weight 168.636, kg, Start date: 08/15/15 21:00:00, Duration: 30 day, Stop date: 09/13/15 21:00:00 Famotidine 2014-08 No Notes: Memor ia 2-18 (Same as: l 03:00: Pepcid) Dav 00 Can be dilute in 5-10cc NS IVP: Slow IV push over at least 2 minutes. Lamictal 2014-08 No Notes: Memoria 2-18 (Same l 03:00: as:LaMICta [place] 00 l) Strattera 2014-08 No 80 mg, Memori a 2-18 Route: PO, l 03:00: Drug form: Dav 00 CAP, Bedtime, Dosing Weight 168.636, kg, Start date: 08/15/15 21:00:00, Duration: 30 day, Stop date: 09/13/15 21:00:00 Famotidine 2014-08 No Notes: Memor ia 2-18 (Same as: l 03:00: Pepcid) [place] 00 Can be dilute in 5-10cc NS IVP: Slow IV push over at least 2 minutes. Lamictal 2014-08 No Notes: Memoria 2-18 (Same l 03:00: as:LaMICta Dav 00 l) Strattera 2014-08 No 80 mg, Memori a 2-18 Route: PO, l 03:00: Drug form: [place] 00 CAP, Bedtime, Dosing Weight 168.636, kg, [...] 2-18 Route: PO, l 03:00: Drug form: [place] 00 CAP, Bedtime, Dosing Weight 168.636, kg, [...] ia 2-18 (Same as: l 03:00: Pepcid) [place] 00 Can be dilute in 5-10cc NS IVP: Slow IV push over at least 2 minutes. Lamictal 2014-08 No Notes: Memoria 2-18 (Same l 03:00: as:LaMICta [place] 00 l) Strattera 2014-08 No 80 mg, Memori a 2-18 Route: PO, l 03:00: Drug form: Dav 00 CAP, Bedtime, Dosing Weight 168.636, kg, Start date: 08/15/15 21:00:00, Duration: 30 day, Stop date: 09/13/15 21:00:00 Famotidine 2014-08 No Notes: Memor ia 2-18 (Same as: l 03:00: Pepcid) [place] 00 Can be dilute in 5-10cc NS IVP: Slow IV push over at least 2 minutes. Lamictal 2014-08 No Notes: Memoria 2-18 (Same l 03:00: as:LaMICta [place] 00 l) Strattera 2014-08 No 80 mg, Memori a 2-18 Route: PO, l 03:00: Drug form: Dav 00 CAP, Bedtime, Dosing Weight 168.636, kg, Start date: 08/15/15 21:00:00, Duration: 30 day, Stop date: 09/13/15 21:00:00 Famotidine 2014-08 No Notes: Memor ia 2-18 (Same as: l 03:00: Pepcid) [place] 00 Can be dilute in 5-10cc NS IVP: Slow IV push over at least 2 minutes. Lamictal 2014-08 No Notes: Memoria 2-18 (Same l 03:00: as:LaMICta [place] 00 l) Strattera 2014-08 No 80 mg, Memori a 2-18 Route: PO, l 03:00: Drug form: [place] 00 CAP, Bedtime, Dosing Weight 168.636, kg, Start date: 08/15/15 21:00:00, Duration: 30 day, Stop date: 09/13/15 21:00:00 Famotidine 2014-08 No Notes: Memor ia 2-18 (Same as: l 03:00: Pepcid) Can be dilute in 5-10cc NS IVP: Slow IV push over at least 2 minutes. Metoclopram 2014-08 No Notes: Henok vane john 2-17 (Same as: l 22:00: Reglan) [place] 00 Metoclopram 2014-08 No Notes: Henok vane john 2-17 (Same as: l 22:00: Reglan) [place] 00 Metoclopram 2014-08 No Notes: Henok vane john 2-17 (Same as: l 22:00: Reglan) [place] 00 Metoclopram 2014-08 No Notes: Henok vane [...] john 2-17 (Same as: l 22:00: Reglan) [place] 00 Metoclopram 2014-08 No Notes: Henok vane john 2-17 (Same as: l 22:00: Reglan) Dav 00 Metoclopram 2014-08 No Notes: Henok vane john 2-17 (Same as: l 22:00: Reglan) [place] 00 Metoclopram 2014-08 No Notes: Henok vane john 2-17 (Same as: l 22:00: Reglan) [place] 00 Metoclopram 2014-08 No Notes: Henok vane john 2-17 (Same as: l 22:00: Reglan) Dav 00 Metoclopram 2014-08 No Notes: Henok vane john 2-17 (Same as: l 22:00: Reglan) [place] 00 Metoclopram 2014-08 No Notes: Henok vane [...] 2-17 Enteral l Oral 19:00: feeds may [place] Suspension 00 interfere [Carafate] with the absorption of this medication . Shake well. Take 1 hr before or 2 hrs after antacids, dairy pdt, minerals & meals. (Same As: Carafate) Sucralfate 2014-08 No Notes: Memor ia 100 MG/ML 2-17 Enteral l Oral 19:00: feeds may [place] Suspension 00 interfere [Carafate] with the absorption of this medication . Shake well. Take 1 hr before or 2 hrs after antacids, dairy pdt, minerals & meals. (Same As: Carafate) Sucralfate 2014-08 No Notes: Memor ia 100 MG/ML 2-17 Enteral l Oral 19:00: feeds may [place] Suspension 00 interfere [Carafate] with the absorption of this medication . Shake well. Take 1 hr before or 2 hrs after antacids, dairy pdt, minerals & meals. (Same As: Carafate) Sucralfate 2014-08 No Notes: Memor ia 100 MG/ML 2-17 Enteral l Oral 19:00: feeds may [place] Suspension 00 interfere [Carafate] with the absorption of this medication . Shake well. Take 1 hr before or 2 hrs after antacids, dairy pdt, minerals & meals. (Same As: Carafate) Sucralfate 2014-08 No Notes: Memor ia 100 MG/ML 2-17 Enteral l Oral 19:00: feeds may [place] Suspension 00 interfere [Carafate] with the absorption [...] 2-17 Enteral l Oral 19:00: feeds may [place] Suspension 00 interfere [Carafate] with the absorption [...] 2-17 Enteral l Oral 19:00: feeds may [place] Suspension 00 interfere [Carafate] with the absorption of this medication . Shake well. Take 1 hr before or 2 hrs after antacids, dairy pdt, minerals & meals. (Same As: Carafate) Sucralfate 2014-08 No Notes: Memor ia 100 MG/ML 2-17 Enteral l Oral 19:00: feeds may [place] Suspension 00 interfere [Carafate] with the absorption [...] 2-17 Enteral l Oral 19:00: feeds may [place] Suspension 00 interfere [Carafate] with the absorption [...] 2-17 Enteral l Oral 19:00: feeds may [place] Suspension 00 interfere [Carafate] with the absorption [...] 2-17 Enteral l Oral 19:00: feeds may [place] Suspension 00 interfere [Carafate] with the absorption [...] Wasted: ___ mg Ondansetron 2014- No Notes: Ehnok vane 2-17 (Same as: l 18:00: Zofran) Dav 00 MEDICATION WASTE Product Size: 4 mg Product Wasted: ___ mg Ondansetron 2014- No Notes: Henok vane 2-17 (Same as: l 18:00: Zofran) aDv 00 MEDICATION WASTE Product Size: 4 mg [...] mL 2-17 Rate: 125 l 16:34: ml/hr, [place] 00 Infuse over: 8 hr, Route: IV, Dosing Weight 168.864 kg, Total Volume: 1,000, Start date: 08/15/15 10:34:00, Duration: 30 day, Stop date: 09/14/15 10:33:00 Promethazin 2014-08 No Notes: Henok vane e 2-17 (Same as: l 16:34: Phenergan) Acetaminoph 2014-08 No Notes: Do M emoria en 2-17 not exceed l 16:34: 4 gm/day. [place] 00 (Same as: Tylenol) Metoprolol 2014-08 No [...] 2-17 not exceed l 16:34: 4 gm/day. [place] 00 (Same as: Tylenol) Metoprolol 2014-08 No Notes: Memor ia 2-17 (Same as: l 16:34: Lopressor) Push over 2 minutes Calcium 2014-08 No 1,000 mL, Memor ia Chloride 2-17 Rate: 125 l 0.0014 16:34: ml/hr, [place] MEQ/ML / 00 Infuse Potassium over: 8 [...] 2-17 Rate: 125 l 0.0014 16:34: ml/hr, [place] MEQ/ML / 00 Infuse Potassium over: 8 [...] 2-17 Rate: 125 l 0.0014 16:34: ml/hr, [place] MEQ/ML / 00 Infuse Potassium over: 8 [...] 2-17 Rate: 125 l 0.0014 16:34: ml/hr, [place] MEQ/ML / 00 Infuse Potassium over: 8 Chloride hr, Route: 0.004 IV, Dosing MEQ/ML / Weight Sodium 168.864 Chloride kg, Total 0.103 Volume: MEQ/ML / 1,000, Sodium Start Lactate date: 0.028 15 MEQ/ML 10:34:00, Injectable Duration: Solution 30 day, Stop date: 09/14/15 10:33:00 Hydromorpho 2014-08 No 0.5 mg, Mem oria ne 2-17 0.5 mL, l 16:34: Route: IV, [place] Drug form: INJ, Q3H, Dosing Weight 175.909, [...] 2-17 Rate: 125 l 0.0014 16:34: ml/hr, [place] MEQ/ML / 00 Infuse Potassium over: 8 [...] 2-17 Rate: 125 l 0.0014 16:34: ml/hr, [place] MEQ/ML / 00 Infuse Potassium over: 8 [...] ia 2-17 (Same as: l 16:34: Lopressor) [place] 00 Push over 2 minutes Calcium 2014-08 [...] 2-17 not exceed l 16:34: 4 gm/day. [place] 00 (Same as: Tylenol) Metoprolol 2014-08 No Notes: Memor ia 2-17 (Same as: l 16:34: Lopressor) 00 Push over 2 minutes Calcium 2014-08 No 1,000 mL, Memor ia Chloride 2-17 Rate: 125 l 0.0014 16:34: ml/hr, [place] MEQ/ML / 00 Infuse Potassium over: 8 Chloride hr, Route: 0.004 IV, Dosing MEQ/ML / Weight Sodium 168.864 Chloride kg, Total 0.103 Volume: MEQ/ML / 1,000, Sodium Start Lactate date: 0.028 08/15/15 MEQ/ML 10:34:00, Injectable Duration: Solution 30 day, Stop date: 09/14/15 10:33:00 Hydromorpho 2014-08 No 0.5 mg, Mem oria ne 2-17 0.5 mL, l 16:34: Route: IV, [place] 00 Drug form: INJ, Q3H, Dosing Weight [...] 2-17 not exceed l 16:34: 4 gm/day. [place] 00 (Same as: Tylenol) Metoprolol 2014-08 No [...] 2-17 Rate: 125 l 0.0014 16:34: ml/hr, [place] MEQ/ML / 00 Infuse Potassium over: 8 [...] 2-17 Rate: 125 l 0.0014 16:34: ml/hr, [place] MEQ/ML / 00 Infuse Potassium over: 8 Chloride hr, Route: 0.004 IV, Dosing MEQ/ML / Weight Sodium 168.864 Chloride kg, Total 0.103 Volume: MEQ/ML / 1,000, Sodium Start Lactate date: 0.028 08/15/15 MEQ/ML 10:34:00, Injectable Duration: Solution 30 day, Stop date: 09/14/15 10:33:00 Hydromorpho 2014-08 No 0.5 mg, Mem oria ne 2-17 0.5 mL, l 16:34: Route: IV, [place] 00 Drug form: INJ, Q3H, Dosing Weight [...] Naloxone 2014-08 No 0.04 mg, Memor ia 217 Route: l 16:23: IVP, Q2MIN, Dosing Weight 168.864, kg, PRN Narcotic Reversal, Start date: 08/15/15 10:23:00, Duration: 8 doses or times, Stop date: Limited # of times Ondansetron 2014-08 No 4 mg, Memor ia 2-17 Route: l 16:23: IVP, ONCE, Dosing Weight 168.864, kg, PRN Nausea & Vomiting, Start date: 08/15/15 10:23:00 Promethazin 2014-08 No 6.25 mg, Me moria e 2-17 Route: l 16:23: IVPB, ONCE, Dosing Weight 168.864, kg, PRN Nausea [...] Memor ia 2-17 Route: l 16:23: IVP, [place] 00 Q2MIN, Dosing Weight 168.864, kg, PRN Narcotic Reversal, Start date: 08/15/15 10:23:00, Duration: 8 doses or times, Stop date: Limited # of times Ondansetron 2014-08 No 4 mg, Memor ia 2-17 Route: l 16:23: IVP, ONCE, [place] 00 Dosing Weight 168.864, kg, PRN Nausea & Vomiting, Start date: 08/15/15 10:23:00 Promethazin 2014-08 No 6.25 mg, Me moria e 2-17 Route: l 16:23: IVPB, [place] 00 ONCE, Dosing Weight 168.864, kg, PRN Nausea & Vomiting, Start date: 08/15/15 10:23:00 Flumazenil 2014-08 No 0.2 mg, Henok vane 2-17 Route: l 16:23: IVP, PRN, [place] 00 Dosing Weight 168.864, kg, PRN Benzodiaze pine Reversal, Initial dose, Start date: 08/15/15 10:23:00, Duration: 30 day, Stop date: 09/14/15 10:22:00 Fentanyl 2014-08 No 25 Memoria 2-17 microgram, l 16:23: Route: [place] 00 IVP, Q5Min, Dosing Weight 168.864, kg, [...] moria e 2-17 Route: l 16:23: IVPB, [place] 00 ONCE, Dosing Weight 168.864, kg, PRN Nausea & Vomiting, Start date: 08/15/15 10:23:00 Flumazenil 2014-08 No 0.2 mg, Henok vane 2-17 Route: l 16:23: IVP, PRN, [place] 00 Dosing Weight 168.864, kg, PRN Benzodiaze pine Reversal, Initial dose, Start date: 08/15/15 10:23:00, Duration: 30 day, Stop date: 09/14/15 10:22:00 Fentanyl 2014-08 No 25 Memoria 2-17 microgram, l 16:23: Route: [place] 00 IVP, Q5Min, Dosing Weight 168.864, kg, [...] ia 2-17 Route: l 16:23: IVP, ONCE, [place] 00 Dosing Weight 168.864, kg, PRN Nausea [...] 25 Memoria 2-17 microgram, l 16:23: Route: [place] 00 IVP, Q5Min, Dosing Weight 168.864, kg, [...] ia 2-17 Route: l 16:23: IVP, ONCE, [place] 00 Dosing Weight 168.864, kg, PRN Nausea & Vomiting, Start date: 08/15/15 10:23:00 Promethazin 2014-08 No 6.25 mg, Me moria e 2-17 Route: l 16:23: IVPB, [place] 00 ONCE, Dosing Weight 168.864, kg, PRN Nausea & Vomiting, Start date: 08/15/15 10:23:00 Flumazenil 2014-08 No 0.2 mg, Henok vane 2-17 Route: l 16:23: IVP, PRN, Dav 00 Dosing Weight 168.864, kg, PRN Benzodiaze pine Reversal, Initial dose, Start date: 08/15/15 10:23:00, Duration: 30 day, Stop date: 09/14/15 10:22:00 Fentanyl 2014-08 No 25 Memoria 2-17 microgram, l 16:23: Route: [place] 00 IVP, Q5Min, Dosing Weight 168.864, kg, PRN Pain Score 4-6, Start date: 08/15/15 10:23:00, Duration: 4 doses or times, Stop date: Limited # of times Hydromorpho 2014-08 No 0.5 mg, Mem oria ne 2-17 Route: l 16:23: IVP, [place] 00 Q5Min, Dosing Weight 168.864, kg, PRN [...] ia 2-17 Route: l 16:23: IVP, ONCE, [place] 00 Dosing Weight 168.864, kg, PRN Nausea & Vomiting, Start date: 08/15/15 10:23:00 Promethazin 2014-08 No 6.25 mg, Me moria e 2-17 Route: l 16:23: IVPB, [place] 00 ONCE, Dosing Weight 168.864, kg, PRN Nausea & Vomiting, Start date: 08/15/15 10:23:00 Flumazenil 2014-08 No 0.2 mg, Henok vane 2-17 Route: l 16:23: IVP, PRN, [place] 00 Dosing Weight 168.864, kg, PRN Benzodiaze [...] ia 2-17 Route: l 16:23: IVP, ONCE, [place] 00 Dosing Weight 168.864, kg, PRN Nausea & Vomiting, Start date: 08/15/15 10:23:00 Promethazin 2014-08 No 6.25 mg, Me moria e 2-17 Route: l 16:23: IVPB, [place] 00 ONCE, Dosing Weight 168.864, kg, PRN [...] oria ne 2-17 Route: l 16:23: IVP, [place] 00 Q5Min, Dosing Weight 168.864, kg, PRN Pain Score 7-10, Start date: 08/15/15 10:23:00, Duration: 4 doses or times, Stop date: Limited # of times Naloxone 2014-08 No 0.04 mg, Memor ia 2-17 Route: l 16:23: IVP, [place] 00 Q2MIN, Dosing Weight 168.864, kg, PRN [...] vane 2-17 Route: l 16:23: IVP, PRN, [place] 00 Dosing Weight 168.864, kg, PRN Benzodiaze [...] oria ne 2-17 Route: l 16:23: IVP, [place] 00 Q5Min, Dosing Weight 168.864, kg, PRN Pain Score 7-10, Start date: 08/15/15 10:23:00, Duration: 4 doses or times, Stop date: Limited # of times Naloxone 2014-08 No 0.04 mg, Memor ia 2-17 Route: l 16:23: IVP, [place] 00 Q2MIN, Dosing Weight 168.864, kg, PRN Narcotic Reversal, Start date: 08/15/15 10:23:00, Duration: 8 doses or times, Stop date: Limited # of times Ondansetron 2014-08 No 4 mg, Memor ia 2-17 Route: l 16:23: IVP, ONCE, [place] 00 Dosing Weight 168.864, kg, PRN Nausea & Vomiting, Start date: 08/15/15 10:23:00 Promethazin 2014-08 No 6.25 mg, Me moria e 2-17 Route: l 16:23: IVPB, Dav 00 ONCE, Dosing Weight 168.864, kg, PRN Nausea & Vomiting, Start date: 08/15/15 10:23:00 Flumazenil 2014-08 No 0.2 mg, Henok vane 2-17 Route: l 16:23: IVP, PRN, [place] 00 Dosing Weight 168.864, kg, PRN Benzodiaze [...] oria ne 2-17 Route: l 16:23: IVP, [place] 00 Q5Min, Dosing Weight 168.864, kg, PRN Pain Score 7-10, Start date: 08/15/15 10:23:00, Duration: 4 doses or times, Stop date: Limited # of times Naloxone 2014-08 No 0.04 mg, Memor ia 2-17 Route: l 16:23: IVP, [place] 00 Q2MIN, Dosing Weight 168.864, kg, PRN Narcotic Reversal, Start date: 08/15/15 10:23:00, Duration: 8 doses or times, Stop date: Limited # of times Ondansetron 2014-08 No 4 mg, Memor ia 2-17 Route: l 16:23: IVP, ONCE, Dosing Weight 168.864, kg, PRN Nausea & Vomiting, Start date: 08/15/15 10:23:00 Promethazin 2014-08 No 6.25 mg, Me moria e 2-17 Route: l 16:23: IVPB, [place] 00 ONCE, Dosing Weight 168.864, kg, PRN [...] oria ne 2-17 Route: l 16:23: IVP, [place] 00 Q5Min, Dosing Weight 168.864, kg, PRN Pain Score 7-10, Start date: 08/15/15 10:23:00, Duration: 4 doses or times, Stop date: Limited # of times Naloxone 2014-08 No 0.04 mg, Memor ia 2-17 Route: l 16:23: IVP, [place] 00 Q2MIN, Dosing Weight 168.864, kg, PRN Narcotic Reversal, Start date: 08/15/15 10:23:00, Duration: 8 doses or times, Stop date: Limited # of times Ondansetron 2014-08 No 4 mg, Memor ia 2-17 Route: l 16:23: IVP, ONCE, Dosing Weight 168.864, kg, PRN Nausea & Vomiting, Start date: 08/15/15 10:23:00 Promethazin 2014-08 No 6.25 mg, Me moria e 2-17 Route: l 16:23: IVPB, ONCE, Dosing Weight 168.864, kg, PRN Nausea [...] ia 2-17 Route: l 16:23: IVP, ONCE, [place] 00 Dosing Weight 168.864, kg, PRN Nausea & Vomiting, Start date: 08/15/15 10:23:00 Promethazin 2014-08 No 6.25 mg, Me moria e 2-17 Route: l 16:23: IVPB, [place] 00 ONCE, Dosing Weight 168.864, kg, PRN Nausea & Vomiting, Start date: 08/15/15 10:23:00 Flumazenil 2014-08 No 0.2 mg, Henok vane 2-17 Route: l 16:23: IVP, PRN, [place] 00 Dosing Weight 168.864, kg, PRN Benzodiaze pine Reversal, Initial dose, Start date: 08/15/15 10:23:00, Duration: 30 day, Stop date: 09/14/15 10:22:00 Fentanyl 2014- No 25 Memoria 2-17 microgram, l 16:23: Route: [place] 00 IVP, Q5Min, Dosing Weight 168.864, kg, [...] 25 Memoria 2-17 microgram, l 16:23: Route: [place] 00 IVP, Q5Min, Dosing Weight 168.864, kg, PRN Pain Score 4-6, Start date: 08/15/15 10:23:00, Duration: 4 doses or times, Stop date: Limited # of times Hydromorpho 2014-08 No 0.5 mg, Mem oria ne 2-17 Route: l 16:23: IVP, [place] 00 Q5Min, Dosing Weight 168.864, kg, PRN [...] moria e 17 Route: l 16:23: IVPB, [place] 00 ONCE, Dosing Weight 168.864, kg, PRN Nausea & Vomiting, Start date: 08/15/15 10:23:00 Flumazenil 2014-08 No 0.2 mg, Henok vane 17 Route: l 16:23: IVP, PRN, Dav 00 Dosing Weight 168.864, kg, PRN Benzodiaze pine Reversal, Initial dose, Start date: 08/15/15 10:23:00, Duration: 30 day, Stop date: 09/14/15 10:22:00 Fentanyl 2014-08 No 25 Memoria 2-17 microgram, l 16:23: Route: [place] 00 IVP, Q5Min, Dosing Weight 168.864, kg, PRN Pain Score 4-6, Start date: 08/15/15 10:23:00, Duration: 4 doses or times, Stop date: Limited # of times Hydromorpho 2014-08 No 0.5 mg, Mem oria ne -17 Route: l 16:23: IVP, [place] 00 Q5Min, Dosing Weight 168.864, kg, PRN Pain Score 7-10, Start date: 08/15/15 10:23:00, Duration: 4 doses or times, Stop date: Limited # of times Naloxone 2014-08 No 0.04 mg, Memor ia 2-17 Route: l 16:23: IVP, [place] 00 Q2MIN, Dosing Weight 168.864, kg, PRN Narcotic Reversal, Start date: 08/15/15 10:23:00, Duration: 8 doses or times, Stop date: Limited # of times Ondansetron 2014-08 No 4 mg, Memor ia 2-17 Route: l 16:23: IVP, ONCE, [place] 00 Dosing Weight 168.864, kg, PRN Nausea & Vomiting, Start date: 08/15/15 10:23:00 Promethazin 2014-08 No 6.25 mg, Me moria e 2-17 Route: l 16:23: IVPB, [place] 00 ONCE, Dosing Weight 168.864, kg, PRN [...] moria e 2-17 Route: l 16:23: IVPB, [place] 00 ONCE, Dosing Weight 168.864, kg, PRN Nausea & Vomiting, Start date: 08/15/15 10:23:00 Flumazenil 2014-08 No 0.2 mg, Henok vane 2-17 Route: l 16:23: IVP, PRN, [place] 00 Dosing Weight 168.864, kg, PRN Benzodiaze pine Reversal, Initial dose, Start date: 08/15/15 10:23:00, Duration: 30 day, Stop date: 09/14/15 10:22:00 Fentanyl 2014-08 No 25 Memoria 2-17 microgram, l 16:23: Route: [place] 00 IVP, Q5Min, Dosing Weight 168.864, kg, [...] Memor ia 2-17 Route: l 16:23: IVP, [place] 00 Q2MIN, Dosing Weight 168.864, kg, PRN [...] Memor ia 2-17 Route: l 16:23: IVP, [place] 00 Q2MIN, Dosing Weight 168.864, kg, PRN [...] moria e 2-17 Route: l 16:23: IVPB, [place] 00 ONCE, Dosing Weight 168.864, kg, PRN Nausea & Vomiting, Start date: 08/15/15 10:23:00 Flumazenil 2014-08 No 0.2 mg, Henok vane 2-17 Route: l 16:23: IVP, PRN, [place] 00 Dosing Weight 168.864, kg, PRN Benzodiaze pine Reversal, Initial dose, Start date: 08/15/15 10:23:00, Duration: 30 day, Stop date: 09/14/15 10:22:00 Fentanyl 2014- No 25 Memoria 2-17 microgram, l 16:23: Route: [place] 00 IVP, Q5Min, Dosing Weight 168.864, kg, [...] Memor ia 2-17 Route: l 16:23: IVP, [place] 00 Q2MIN, Dosing Weight 168.864, kg, PRN Narcotic Reversal, Start date: 08/15/15 10:23:00, Duration: 8 doses or times, Stop date: Limited # of times Ondansetron 2014-08 No 4 mg, Memor ia 2-17 Route: l 16:23: IVP, ONCE, [place] 00 Dosing Weight 168.864, kg, PRN Nausea & Vomiting, Start date: 08/15/15 10:23:00 Promethazin 2014-08 No 6.25 mg, Me moria e 2-17 Route: l 16:23: IVPB, [place] 00 ONCE, Dosing Weight 168.864, kg, PRN [...] Memor ia 2-17 Route: l 16:23: IVP, [place] 00 Q2MIN, Dosing Weight 168.864, kg, PRN Narcotic Reversal, Start date: 08/15/15 10:23:00, Duration: 8 doses or times, Stop date: Limited # of times Ondansetron 2014-08 No 4 mg, Memor ia 2-17 Route: l 16:23: IVP, ONCE, [place] 00 Dosing Weight 168.864, kg, PRN Nausea & Vomiting, Start date: 08/15/15 10:23:00 Promethazin 2014-08 No 6.25 mg, Me moria e 2-17 Route: l 16:23: IVPB, [place] 00 ONCE, Dosing Weight 168.864, kg, PRN Nausea & Vomiting, Start date: 08/15/15 10:23:00 Flumazenil 2014-08 No 0.2 mg, Henok vane 2-17 Route: l 16:23: IVP, PRN, [place] 00 Dosing Weight 168.864, kg, PRN Benzodiaze [...] oria ne 2-17 Route: l 16:23: IVP, [place] 00 Q5Min, Dosing Weight 168.864, kg, PRN [...] 2-17 Rate: 25 l 0.0014 13:59: ml/hr, [place] MEQ/ML / 00 Infuse Potassium over: 40 [...] 2-17 Rate: 25 l 0.0014 13:59: ml/hr, [place] MEQ/ML / 00 Infuse Potassium over: 40 Chloride hr, Route: 0.004 IV, Dosing MEQ/ML / Weight 170 Sodium kg, Total Chloride Volume: 0.103 1,000, MEQ/ML / Start Sodium date: Lactate 08/15/15 0.028 7:59:00, MEQ/ML Duration: Injectable 30 day, Solution Stop date: 09/14/15 7:58:00 Calcium 2014-08 No 1,000 mL, Memor ia Chloride 2-17 Rate: 25 l 0.0014 13:59: ml/hr, [place] MEQ/ML / 00 Infuse Potassium over: 40 [...] 2014-08 No 1,000 mL, [facility] Chloride 217 Rate: 25 l 0.0014 13:59: ml/hr, Dav MEQ/ML / 00 Infuse Potassium over: 40 Chloride hr, Route: 0.004 IV, Dosing MEQ/ML / Weight 170 Sodium kg, Total Chloride Volume: 0.103 1,000, MEQ/ML / Start Sodium date: Lactate 08/15/15 0.028 7:59:00, MEQ/ML Duration: Injectable 30 day, Solution Stop date: 09/14/15 7:58:00 Calcium 2014-08 No 1,000 mL, [facility] Chloride 217 Rate: 25 l 0.0014 13:59: ml/hr, [place] MEQ/ML / 00 Infuse Potassium over: 40 Chloride hr, Route: 0.004 IV, Dosing MEQ/ML / Weight 170 Sodium kg, Total Chloride Volume: 0.103 1,000, MEQ/ML / Start Sodium date: Lactate 08/15/15 0.028 7:59:00, MEQ/ML Duration: Injectable 30 day, Solution Stop date: 09/14/15 7:58:00 Calcium 2014-08 No 1,000 mL, [facility] Chloride 217 Rate: 25 l 0.0014 13:59: ml/hr, [place] MEQ/ML / 00 Infuse Potassium over: 40 Chloride hr, Route: 0.004 IV, Dosing MEQ/ML / Weight 170 Sodium kg, Total Chloride Volume: 0.103 1,000, MEQ/ML / Start Sodium date: Lactate 08/15/15 0.028 7:59:00, MEQ/ML Duration: Injectable 30 day, Solution Stop date: 09/14/15 7:58:00 Calcium 2014-08 No 1,000 mL, [facility] Chloride 217 Rate: 25 l 0.0014 13:59: ml/hr, Dav MEQ/ML / 00 Infuse Potassium over: 40 Chloride hr, Route: 0.004 IV, Dosing MEQ/ML / Weight 170 Sodium kg, Total Chloride Volume: 0.103 1,000, MEQ/ML / Start Sodium date: Lactate 08/15/15 0.028 7:59:00, MEQ/ML Duration: Injectable 30 day, Solution Stop date: 09/14/15 7:58:00 Calcium 2014-08 No 1,000 mL, [facility] Chloride 217 Rate: 25 l 0.0014 13:59: ml/hr, [place] MEQ/ML / 00 Infuse Potassium over: 40 Chloride hr, Route: 0.004 IV, Dosing MEQ/ML / Weight 170 Sodium kg, Total Chloride Volume: 0.103 1,000, MEQ/ML / Start Sodium date: Lactate 08/15/15 0.028 7:59:00, MEQ/ML Duration: Injectable 30 day, Solution Stop date: 09/14/15 7:58:00 Calcium 2014-08 No 1,000 mL, [facility] Chloride 217 Rate: 25 l 0.0014 13:59: ml/hr, Dav MEQ/ML / 00 Infuse Potassium over: 40 Chloride hr, Route: 0.004 IV, Dosing MEQ/ML / Weight 170 Sodium kg, Total Chloride Volume: 0.103 1,000, MEQ/ML / Start Sodium date: Lactate 08/15/15 0.028 7:59:00, MEQ/ML Duration: Injectable 30 day, Solution Stop date: 09/14/15 7:58:00 Calcium 2014-08 No 1,000 mL, [facility] Chloride 217 Rate: 25 l 0.0014 13:59: ml/hr, Dav MEQ/ML / 00 Infuse Potassium over: 40 Chloride hr, Route: 0.004 IV, Dosing MEQ/ML / Weight 170 Sodium kg, Total Chloride Volume: 0.103 1,000, MEQ/ML / Start Sodium date: Lactate 08/15/15 0.028 7:59:00, MEQ/ML Duration: Injectable 30 day, Solution Stop date: 09/14/15 7:58:00 Calcium 2014-08 No 1,000 mL, Memor ia Chloride 217 Rate: 25 l 0.0014 13:59: ml/hr, [place] MEQ/ML / 00 Infuse Potassium over: 40 [...] 2-17 Rate: 25 l 0.0014 13:59: ml/hr, [place] MEQ/ML / 00 Infuse Potassium over: 40 [...] 2-17 Rate: 25 l 0.0014 13:59: ml/hr, [place] MEQ/ML / 00 Infuse Potassium over: 40 [...] Memoria 2-14 Same as: l 16:00: Emend [place] 00 restricted to the Hematology /Oncology service [...] a 2-14 Same as: l 16:00: Ancef [place] 00 Emend 2014-08 No Notes: [facility]oria 2-14 Same as: l 16:00: Emend [place] 00 restricted to the Hematology /Oncology service for high and moderate emetogenic regimen according to ASCO Guidelines [place] [facility] Only for Chemothera py-Induced nausea & vomiting heparin 2014-08 No Notes: Memoria sodium, 2-14 porcine l porcine 16:00: heparin [place] 2500 UNT/ML 00 Injectable Solution Cefazolin 2014-08 [...] sodium, 2-14 porcine l porcine 16:00: heparin [place] 2500 UNT/ML 00 Injectable Solution Cefazolin 2014-08 No Notes: Memori a 2-14 Same as: l 16:00: Ancef [place] 00 Emend 2014-08 No Notes: [facility]oria 2-14 Same as: l 16:00: Emend [place] 00 restricted to the Hematology /Oncology service for high and moderate emetogenic regimen according to ASCO Guidelines [place] [facility] Only for Chemothera py-Induced nausea & vomiting heparin 2014-08 No Notes: [facility]oria sodium, 2-14 porcine l porcine 16:00: heparin [place] 2500 UNT/ML 00 Injectable Solution Cefazolin 2014-08 [...] sodium, 2-14 porcine l porcine 16:00: heparin [place] 2500 UNT/ML 00 Injectable Solution Cefazolin 2014-08 No Notes: Memori a 2-14 Same as: l 16:00: Ancef Dav 00 Emend 2014-08 No Notes: [facility]oria 2-14 Same as: l 16:00: Emend [place] 00 restricted to the Hematology /Oncology service for high and moderate emetogenic regimen according to ASCO Guidelines [place] Only for Chemothera py-Induced nausea & vomiting heparin 2014-08 No Notes: [facility]oria sodium, 2-14 porcine l porcine 16:00: heparin [place] 2500 UNT/ML 00 Injectable Solution Cefazolin 2014-08 No Notes: Memori a 2-14 Same as: l 16:00: Ancef [place] 00 Emend 2014-08 No Notes: [facility]oria 2-14 [...] sodium, 2-14 porcine l porcine 16:00: heparin [place] 2500 UNT/ML 00 Injectable Solution Cefazolin 2014-08 No Notes: Memori a 2-14 Same as: l 16:00: Ancef Dav 00 Emend 2014-08 No Notes: [facility]oria 2-14 Same as: l 16:00: Emend [place] 00 restricted to the Hematology /Oncology service for high and moderate emetogenic regimen according to ASCO Guidelines [place] Only for Chemothera py-Induced nausea & vomiting heparin 2014-08 No Notes: [facility]oria sodium, 2-14 porcine l porcine 16:00: heparin [place] 2500 UNT/ML 00 Injectable Solution Cefazolin 2014-08 [...] sodium, 2-14 porcine l porcine 16:00: heparin [place] 2500 UNT/ML 00 Injectable Solution Cefazolin 2014-08 [...] Memoria 2-14 Same as: l 16:00: Emend [place] 00 restricted to the Hematology /Oncology service [...] Memoria 2-14 Same as: l 16:00: Emend [place] 00 restricted to the Hematology /Oncology service for high and moderate emetogenic regimen according to ASCO Guidelines [place] Only for Chemothera py-Induced nausea & vomiting heparin 2014-08 No Notes: [facility]oria sodium, 2-14 porcine l porcine 16:00: heparin [place] 2500 UNT/ML 00 Injectable Solution Cefazolin 2014-08 No Notes: Memori a 2-14 Same as: l 16:00: Ancef Dav 00 Emend 2014-08 No Notes: [facility]oria 2-14 Same as: l 16:00: Emend [place] 00 restricted to the Hematology /Oncology service for high and moderate emetogenic regimen according to ASCO Guidelines [place] Only for Chemothera py-Induced nausea & vomiting heparin 2014-08 No Notes: [facility]oria sodium, 2-14 porcine l porcine 16:00: heparin [place] 2500 UNT/ML 00 Injectable Solution Cefazolin 2014-08 No Notes: Memori a 2-14 Same as: l 16:00: Ancef [place] 00 Emend 2014-08 No Notes: [facility]oria 2-14 Same as: l 16:00: Emend [place] 00 restricted to the Hematology /Oncology service for high and moderate emetogenic regimen according to ASCO Guidelines [place] Only for Chemothera py-Induced nausea & vomiting heparin 2014-08 No Notes: [facility]oria sodium, 2-14 porcine l porcine 16:00: heparin [place] 2500 UNT/ML 00 Injectable Solution Cefazolin 2014-08 No Notes: Memori a 2-14 Same as: l 16:00: Ancef [place] 00 Emend 2014-08 No Notes: [facility]oria 2-14 Same as: l 16:00: Emend Dav 00 restricted to the Hematology /Oncology service for high and moderate emetogenic regimen according to ASCO Guidelines [place] Only for Chemothera py-Induced nausea & vomiting heparin 2014-08 No Notes: [facility]oria sodium, 2-14 porcine l porcine 16:00: heparin [place] 2500 UNT/ML 00 Injectable Solution Cefazolin 2014-08 [...] sodium, 2-14 porcine l porcine 16:00: heparin [place] 2500 UNT/ML 00 Injectable Solution Cefazolin 2014-08 No Notes: Memori a 2-14 Same as: l 16:00: Ancef [place] 00 Omeprazole 2014-08 Yes 40 mg = [...] for insomnia, # 90 tab, 0 Refill(s) Depo-Dry Chain Puller 2014-08 Yes 150 mg = 1 Memoria a 2-14 mL, IM, l Contracepti 15:44: q3mo, # 1 H ermann ve 150 00 mL, 0 mg/mL Refill(s) intramuscul ar suspension Hydrochloro 2014-08 Yes 1 tab, PO, Memoria thiazide 25 2-14 Daily, # l MG / 15:44: 30 tab, 0 [place] Lisinopril 00 Refill(s) 20 MG Oral Tablet Melatonin 2014-08 Yes 1 mg = 1 Me moria mg oral 2-14 tab, PO, l tablet 15:44: Bedtime, [place] 00 PRN for insomnia, # 90 tab, 0 Refill(s) Depo-Dry Chain Puller 2014-08 Yes 150 mg = 1 Memoria [...] 2-14 tab, PO, l tablet 15:44: Bedtime, [place] 00 PRN for insomnia, # 90 tab, 0 Refill(s) Depo-Dry Chain Puller 2014-08 Yes 150 mg = 1 Memoria a 2-14 mL, IM, l Contracepti 15:44: q3mo, # 1 H ermann ve 150 00 mL, 0 mg/mL Refill(s) intramuscul ar suspension Hydrochloro 2014-08 Yes 1 tab, PO, Memoria thiazide 25 2-14 Daily, # l MG / 15:44: 30 tab, 0 [place] Lisinopril 00 Refill(s) 20 MG Oral Tablet Melatonin 2014-08 Yes 1 mg = 1 Me moria mg oral 2-14 tab, PO, l tablet 15:44: Bedtime, [place] 00 PRN for insomnia, # 90 tab, 0 Refill(s) Depo-Dry Chain Puller 2014-08 Yes 150 mg = 1 Memoria a 2-14 mL, IM, l Contracepti 15:44: q3mo, # 1 H ermann ve 150 00 mL, 0 mg/mL Refill(s) intramuscul ar suspension Hydrochloro 2014-08 Yes 1 tab, PO, Memoria thiazide 25 2-14 Daily, # l MG / 15:44: 30 tab, 0 [place] Lisinopril 00 Refill(s) 20 MG Oral Tablet Melatonin 2014-08 Yes 1 mg = 1 Me moria mg oral 2-14 tab, PO, l tablet 15:44: Bedtime, [place] 00 PRN for insomnia, # 90 tab, 0 Refill(s) Depo-Dry Chain Puller 2014-08 Yes 150 mg = 1 Memoria a 2-14 mL, IM, l Contracepti 15:44: q3mo, # 1 H ermann ve 150 00 mL, 0 mg/mL Refill(s) intramuscul ar suspension Hydrochloro 2014-08 Yes 1 tab, PO, Memoria thiazide 25 2-14 Daily, # l MG / 15:44: 30 tab, 0 [place] Lisinopril 00 Refill(s) 20 MG Oral Tablet Melatonin 2014-08 Yes 1 mg = 1 Me moria mg oral 2-14 tab, PO, l tablet 15:44: Bedtime, [place] 00 PRN for insomnia, # 90 tab, 0 Refill(s) Depo-Dry Chain Puller 2014-08 Yes 150 mg = 1 Memoria a 2-14 mL, IM, l Contracepti 15:44: q3mo, # 1 H ermann ve 150 00 mL, 0 mg/mL Refill(s) intramuscul ar suspension Hydrochloro 2014-08 Yes 1 tab, PO, Memoria thiazide 25 2-14 Daily, # l MG / 15:44: 30 tab, 0 [place] Lisinopril 00 Refill(s) 20 MG Oral Tablet Melatonin 2014-08 Yes 1 mg = 1 Me moria mg oral 2-14 tab, PO, l tablet 15:44: Bedtime, [place] 00 PRN for insomnia, # 90 tab, 0 Refill(s) Depo-Dry Chain Puller 2014-08 Yes 150 mg = 1 Memoria [...] 2-14 tab, PO, l tablet 15:44: Bedtime, [place] 00 PRN for insomnia, # 90 tab, 0 Refill(s) Depo-Dry Chain Puller 2014-08 Yes 150 mg = 1 Memoria [...] for insomnia, # 90 tab, 0 Refill(s) Depo-Dry Chain Puller 2014-08 Yes 150 mg = 1 Memoria a 2-14 mL, IM, l Contracepti 15:44: q3mo, # 1 H ermann ve 150 00 mL, 0 mg/mL Refill(s) intramuscul ar suspension Hydrochloro 2014-08 Yes 1 tab, PO, [facility]oria thiazide 25 2-14 Daily, # l MG / 15:44: 30 tab, 0 [place] Lisinopril 00 Refill(s) 20 MG Oral Tablet Melatonin 2014-08 Yes 1 mg = 1 Me moria mg oral 2-14 tab, PO, l tablet 15:44: Bedtime, [place] 00 PRN for insomnia, # 90 tab, 0 Refill(s) Depo-Dry Chain Puller 2014-08 Yes 150 mg = 1 Memoria [...] 2-14 tab, PO, l tablet 15:44: Bedtime, [place] 00 PRN for insomnia, # 90 tab, 0 Refill(s) Depo-Dry Chain Puller 2014-08 Yes 150 mg = 1 Memoria [...] 2-14 tab, PO, l tablet 15:44: Bedtime, [place] 00 PRN for insomnia, # 90 tab, 0 Refill(s) Depo-Dry Chain Puller 2014-08 Yes 150 mg = 1 Memoria [...] 2-14 tab, PO, l tablet 15:44: Bedtime, [place] 00 PRN for insomnia, # 90 tab, 0 Refill(s) Depo-Dry Chain Puller 2014-08 Yes 150 mg = 1 Memoria a 2-14 mL, IM, l Contracepti 15:44: q3mo, # 1 H ermann ve 150 00 mL, 0 mg/mL Refill(s) intramuscul ar suspension Hydrochloro 2014-08 Yes 1 tab, PO, Memoria thiazide 25 2-14 Daily, # l MG / 15:44: 30 tab, 0 [place] Lisinopril 00 Refill(s) 20 MG Oral Tablet Melatonin 2014-08 Yes 1 mg = 1 Me moria mg oral 2-14 tab, PO, l tablet 15:44: Bedtime, [place] 00 PRN for insomnia, # 90 tab, 0 Refill(s) Depo-Dry Chain Puller 2014-08 Yes 150 mg = 1 Memoria a 2-14 mL, IM, l Contracepti 15:44: q3mo, # 1 H ermann ve 150 00 mL, 0 mg/mL Refill(s) intramuscul ar suspension Hydrochloro 2014-08 Yes 1 tab, PO, Memoria thiazide 25 2-14 Daily, # l MG / 15:44: 30 tab, 0 [place] Lisinopril 00 Refill(s) 20 MG Oral Tablet Melatonin 2014-08 Yes 1 mg = 1 Me moria mg oral 2-14 tab, PO, l tablet 15:44: Bedtime, [place] 00 PRN for insomnia, # 90 tab, 0 Refill(s) Depo-Dry Chain Puller 2014-08 Yes 150 mg = 1 Memoria [...] 2-14 tab, PO, l tablet 15:44: Bedtime, [place] 00 PRN for insomnia, # 90 tab, 0 Refill(s) Depo-Dry Chain Puller 2014-08 Yes 150 mg = 1 Memoria a 2-14 mL, IM, l Contracepti 15:44: q3mo, # 1 H ermann ve 150 00 mL, 0 mg/mL Refill(s) intramuscul ar suspension Hydrochloro 2014-08 Yes 1 tab, PO, Memoria thiazide 25 2-14 Daily, # l MG / 15:44: 30 tab, 0 [place] Lisinopril 00 Refill(s) 20 MG Oral Tablet Melatonin 2014-08 Yes 1 mg = 1 Me moria mg oral 2-14 tab, PO, l tablet 15:44: Bedtime, Dav 00 PRN for insomnia, # 90 tab, 0 Refill(s) Depo-Dry Chain Puller 2014-08 Yes 150 mg = 1 Memoria a 2-14 mL, IM, l Contracepti 15:44: q3mo, # 1 H ermann ve 150 00 mL, 0 mg/mL Refill(s) intramuscul ar suspension Hydrochloro 2014-08 Yes 1 tab, PO, Memoria thiazide 25 2-14 Daily, # l MG / 15:44: 30 tab, 0 [place] Lisinopril 00 Refill(s) 20 MG Oral Tablet Melatonin 2014-08 Yes 1 mg = 1 Me moria mg oral 2-14 tab, PO, l tablet 15:44: Bedtime, Dav 00 PRN for insomnia, # 90 tab, 0 Refill(s) Depo-Dry Chain Puller 2014-08 Yes 150 mg = 1 Memoria a 2-14 mL, IM, l Contracepti 15:44: q3mo, # 1 H ermann ve 150 00 mL, 0 mg/mL Refill(s) intramuscul ar suspension Hydrochloro 2014-08 Yes 1 tab, PO, Memoria thiazide 25 2-14 Daily, # l MG / 15:44: 30 tab, 0 [place] Lisinopril 00 Refill(s) 20 MG Oral Tablet Melatonin 2014-08 Yes 1 mg = 1 Me moria mg oral 2-14 tab, PO, l tablet 15:44: Bedtime, [place] 00 PRN for insomnia, # 90 tab, 0 Refill(s) Depo-Dry Chain Puller 2014-08 Yes 150 mg = 1 Memoria a 2-14 mL, IM, l Contracepti 15:44: q3mo, # 1 H ermann ve 150 00 mL, 0 mg/mL Refill(s) intramuscul ar suspension Hydrochloro 2014-08 Yes 1 tab, PO, Memoria thiazide 25 2-14 Daily, # l MG / 15:44: 30 tab, 0 [place] Lisinopril 00 Refill(s) 20 MG Oral Tablet Melatonin 2014-08 Yes 1 mg = 1 Me moria mg oral 2-14 tab, PO, l tablet 15:44: Bedtime, Dav 00 PRN for insomnia, # 90 tab, 0 Refill(s) Depo-Dry Chain Puller 2014-08 Yes 150 mg = 1 Memoria [...] 2-14 tab, PO, l tablet 15:44: Bedtime, [place] 00 PRN for insomnia, # 90 tab, 0 Refill(s) Depo-Dry Chain Puller 2014-08 Yes 150 mg = 1 Memoria a 2-14 mL, IM, l Contracepti 15:44: q3mo, # 1 H ermann ve 150 00 mL, 0 mg/mL Refill(s) intramuscul ar suspension [id number] 2014-08 No 1,000 mL, Memori a 1,000 mL 2-14 Rate: 125 l 15:13: ml/hr, Dav 00 Infuse over: 8 hr, Route: IV, Dosing Weight 175.909 kg, Total Volume: 1,000, Start date: 08/12/15 9:13:00, Duration: 4 day, Stop date: 08/16/15 9:12:00 72 HR 2014-08 No Notes: Memoria Scopolamine 2-14 Change l 0.0139 15:13: patch [place] MG/HR 00 every 72 Transdermal hours Patch (Same as: Transderm- Scop) [id number] 2014-08 No 1,000 mL, Memori a 1,000 mL 2-14 Rate: 125 l 15:13: ml/hr, [place] 00 Infuse over: 8 hr, Route: IV, Dosing Weight 175.909 kg, Total Volume: 1,000, Start date: 08/12/15 9:13:00, Duration: 4 day, Stop date: 08/16/15 9:12:00 72 HR 2014-08 No Notes: Memoria Scopolamine 2-14 Change l 0.0139 15:13: patch Dav MG/HR 00 every 72 Transdermal hours Patch (Same as: Transderm- Scop) [id number] 2014-08 No 1,000 mL, Memori a 1,000 mL 2-14 Rate: 125 l 15:13: ml/hr, [place] 00 Infuse over: 8 hr, Route: IV, Dosing Weight 175.909 kg, Total Volume: 1,000, Start date: 08/12/15 9:13:00, Duration: 4 day, Stop date: 08/16/15 9:12:00 72 HR 2014-08 No Notes: Memoria Scopolamine 2-14 Change l 0.0139 15:13: patch [place] MG/HR 00 every 72 Transdermal hours Patch (Same as: Transderm- Scop) [facility] 2014-08 No 1,000 mL, Memori a 1,000 mL 2-14 Rate: 125 l 15:13: ml/hr, [place] 00 Infuse over: 8 hr, Route: IV, Dosing Weight 175.909 kg, Total Volume: 1,000, Start date: 08/12/15 9:13:00, Duration: 4 day, Stop date: 08/16/15 9:12:00 72 HR 2014-08 No Notes: Memoria Scopolamine 2-14 Change l 0.0139 15:13: patch [place] MG/HR 00 every 72 Transdermal hours Patch (Same as: Transderm- Scop) [id number] 2014-08 No 1,000 mL, Memori a 1,000 mL 2-14 Rate: 125 l 15:13: ml/hr, [place] 00 Infuse over: 8 hr, Route: IV, Dosing Weight 175.909 kg, Total Volume: 1,000, Start date: 08/12/15 9:13:00, Duration: 4 day, Stop date: 08/16/15 9:12:00 72 HR 2014-08 No Notes: Memoria Scopolamine 2-14 Change l 0.0139 15:13: patch [place] MG/HR 00 every 72 Transdermal hours Patch (Same as: Transderm- Scop) [facility] 2014-08 No 1,000 mL, Memori a 1,000 mL 2-14 Rate: 125 l 15:13: ml/hr, Dav 00 Infuse over: 8 hr, Route: IV, Dosing Weight 175.909 kg, Total Volume: 1,000, Start date: 08/12/15 9:13:00, Duration: 4 day, Stop date: 08/16/15 9:12:00 72 HR 2014-08 No Notes: Memoria Scopolamine 2-14 Change l 0.0139 15:13: patch [place] MG/HR 00 every 72 Transdermal hours Patch (Same as: Transderm- Scop) [facility] 2014-08 No 1,000 mL, Memori a 1,000 mL 2-14 Rate: 125 l 15:13: ml/hr, Dav 00 Infuse over: 8 hr, Route: IV, Dosing Weight 175.909 kg, Total Volume: 1,000, Start date: 08/12/15 9:13:00, Duration: 4 day, Stop date: 08/16/15 9:12:00 72 HR 2014-08 No Notes: Memoria Scopolamine 2-14 Change l 0.0139 15:13: patch [place] MG/HR 00 every 72 Transdermal hours Patch (Same as: Transderm- Scop) [facility] 2014-08 No 1,000 mL, Memori a 1,000 mL 2-14 Rate: 125 l 15:13: ml/hr, [place] 00 Infuse over: 8 hr, Route: IV, Dosing Weight 175.909 kg, Total Volume: 1,000, Start date: 08/12/15 9:13:00, Duration: 4 day, Stop date: 08/16/15 9:12:00 72 HR 2014-08 No Notes: Memoria Scopolamine 2-14 Change l 0.0139 15:13: patch Dav MG/HR 00 every 72 Transdermal hours Patch (Same as: Transderm- Scop) [facility] 2014-08 No 1,000 mL, Memori [...] Transdermal hours Patch (Same as: Transderm- Scop) [id number] 2014-08 No 1,000 mL, Memori a 1,000 mL 2-14 Rate: 125 l 15:13: ml/hr, [place] 00 Infuse over: 8 hr, Route: IV, Dosing Weight 175.909 kg, Total Volume: 1,000, Start date: 08/12/15 9:13:00, Duration: 4 day, Stop date: 08/16/15 9:12:00 72 HR 2014-08 No Notes: Memoria Scopolamine 2-14 Change l 0.0139 15:13: patch Dav MG/HR 00 every 72 Transdermal hours Patch (Same as: Transderm- Scop) [facility] 2014-08 No 1,000 mL, Memori [...] Transdermal hours Patch (Same as: Transderm- Scop) [id number] 2014-08 No 1,000 mL, Memori a 1,000 mL 2-14 Rate: 125 l 15:13: ml/hr, [place] 00 Infuse over: 8 hr, Route: IV, Dosing Weight 175.909 kg, Total Volume: 1,000, Start date: 08/12/15 9:13:00, Duration: 4 day, Stop date: 08/16/15 9:12:00 72 HR 2014-08 No Notes: Memoria Scopolamine 2-14 Change l 0.0139 15:13: patch [place] MG/HR 00 every 72 Transdermal hours Patch (Same as: Transderm- Scop) [id number] 2014-08 No 1,000 mL, Memori a 1,000 mL 2-14 Rate: 125 l 15:13: ml/hr, [place] 00 Infuse over: 8 hr, Route: IV, Dosing Weight 175.909 kg, Total Volume: 1,000, Start date: 08/12/15 9:13:00, Duration: 4 day, Stop date: 08/16/15 9:12:00 72 HR 2014-08 No Notes: Memoria Scopolamine 2-14 Change l 0.0139 15:13: patch [place] MG/HR 00 every 72 Transdermal hours Patch (Same as: Transderm- Scop) [facility] 2014-08 No 1,000 mL, Memori a 1,000 mL 2-14 Rate: 125 l 15:13: ml/hr, [place] 00 Infuse over: 8 hr, Route: IV, Dosing Weight 175.909 kg, Total Volume: 1,000, Start date: 08/12/15 9:13:00, Duration: 4 day, Stop date: 08/16/15 9:12:00 72 HR 2014-08 No Notes: Memoria Scopolamine 2-14 Change l 0.0139 15:13: patch Dav MG/HR 00 every 72 Transdermal hours Patch (Same as: Transderm- Scop) [facility] 2014-08 No 1,000 mL, Memori a 1,000 mL 2-14 Rate: 125 l 15:13: ml/hr, [place] 00 Infuse over: 8 hr, Route: IV, Dosing Weight 175.909 kg, Total Volume: 1,000, Start date: 08/12/15 9:13:00, Duration: 4 day, Stop date: 08/16/15 9:12:00 72 HR 2014-08 No Notes: Memoria Scopolamine 2-14 Change l 0.0139 15:13: patch [place] MG/HR 00 every 72 Transdermal hours Patch (Same as: Transderm- Scop) [facility] 2014-08 No 1,000 mL, Memori a 1,000 mL 2-14 Rate: 125 l 15:13: ml/hr, [place] 00 Infuse over: 8 hr, Route: IV, Dosing Weight 175.909 kg, Total Volume: 1,000, Start date: 08/12/15 9:13:00, Duration: 4 day, Stop date: 08/16/15 9:12:00 72 HR 2014-08 No Notes: Memoria Scopolamine 2-14 Change l 0.0139 15:13: patch Dav MG/HR 00 every 72 Transdermal hours Patch (Same as: Transderm- Scop) [facility] 2014-08 No 1,000 mL, Memori [...] Transdermal hours Patch (Same as: Transderm- Scop) [facility] 2014-08 No 1,000 mL, Memori a 1,000 mL 2-14 Rate: 125 l 15:13: ml/hr, [place] 00 Infuse over: 8 hr, Route: IV, Dosing Weight 175.909 kg, Total Volume: 1,000, Start date: 08/12/15 9:13:00, Duration: 4 day, Stop date: 08/16/15 9:12:00 72 HR 2014-08 No Notes: Memoria Scopolamine 2-14 Change l 0.0139 15:13: patch [place] MG/HR 00 every 72 Transdermal hours Patch (Same as: Transderm- Scop) [facility] 2014-08 No 1,000 mL, Memori [...] Transdermal hours Patch (Same as: Transderm- Scop) [facility] 2014-08 No 1,000 mL, Memori a 1,000 mL 2-14 Rate: 125 l 15:13: ml/hr, [place] 00 Infuse over: 8 hr, Route: IV, Dosing Weight 175.909 kg, Total Volume: 1,000, Start date: 08/12/15 9:13:00, Duration: 4 day, Stop date: 08/16/15 9:12:00 72 HR 2014-08 No Notes: Memoria Scopolamine 2-14 Change l 0.0139 15:13: patch Dav MG/HR 00 every 72 Transdermal hours Patch (Same as: Transderm- Scop) [id number] 2014-08 No 1,000 mL, Memori a 1,000 mL 2-14 Rate: 125 l 15:13: ml/hr, [place] 00 Infuse over: 8 hr, Route: IV, Dosing Weight 175.909 kg, Total Volume: 1,000, Start date: 08/12/15 9:13:00, Duration: 4 day, Stop date: 08/16/15 9:12:00 72 HR 2014-08 No Notes: Memoria Scopolamine 2-14 Change l 0.0139 15:13: patch [place] MG/HR 00 every 72 Transdermal hours Patch [...] Henok vane 0-12 Route: l 14:25: IVP, [place] 00 Q5Min, Dosing Weight 175.909, kg, PRN [...] Henok vane 0-12 Route: l 14:25: IVP, [place] 00 Q5Min, Dosing Weight 175.909, kg, PRN Other -See Comment, Start date: 06/10/15 9:25:00, Duration: 30 day, Stop date: 07/10/15 8:24:00 Naloxone 2014-1 No 0.1 mg, Memori a 0-12 Route: l 14:25: IVP, [place] 00 Q2MIN, Dosing Weight 175.909, kg, PRN [...] Henok vane 0-12 Route: l 14:25: IVP, [place] 00 Q5Min, Dosing Weight 175.909, kg, PRN [...] Memori a 0-12 Route: l 14:25: IVP, [place] 00 Q2MIN, Dosing Weight 175.909, kg, PRN Narcotic Reversal, Start date: 06/10/15 9:25:00, Duration: 4 doses or times, Stop date: Limited # of times Flumazenil 2014-08 No 0.1 mg, Henok vane 0-12 Route: l 14:25: IVP, [place] 00 Q5Min, Dosing Weight 175.909, kg, PRN [...] Henok vane 0-12 Route: l 14:25: IVP, [place] 00 Q5Min, Dosing Weight 175.909, kg, PRN Other -See Comment, Start date: 06/10/15 9:25:00, Duration: 30 day, Stop date: 07/10/15 8:24:00 Naloxone 2014- No 0.1 mg, Memori a 0-12 Route: l 14:25: IVP, [place] 00 Q2MIN, Dosing Weight 175.909, kg, PRN Narcotic Reversal, Start date: 06/10/15 9:25:00, Duration: 4 doses or times, Stop date: Limited # of times Flumazenil 2014-08 No 0.1 mg, Henok vane 0-12 Route: l 14:25: IVP, [place] 00 Q5Min, Dosing Weight 175.909, kg, PRN Other -See Comment, Start date: 06/10/15 9:25:00, Duration: 30 day, Stop date: 07/10/15 8:24:00 Naloxone 2014- No 0.1 mg, Memori a 0-12 Route: l 14:25: IVP, [place] 00 Q2MIN, Dosing Weight 175.909, kg, PRN Narcotic Reversal, Start date: 06/10/15 9:25:00, Duration: 4 doses or times, Stop date: Limited # of times Flumazenil 2014-08 No 0.1 mg, Henok vane 0-12 Route: l 14:25: IVP, [place] 00 Q5Min, Dosing Weight 175.909, kg, PRN [...] Memori a 0-12 Route: l 14:25: IVP, [place] 00 Q2MIN, Dosing Weight 175.909, kg, PRN [...] Henok vane 0-12 Route: l 14:25: IVP, [place] 00 Q5Min, Dosing Weight 175.909, kg, PRN Other -See Comment, Start date: 06/10/15 9:25:00, Duration: 30 day, Stop date: 07/10/15 8:24:00 Naloxone 2014- No 0.1 mg, Memori a 0-12 Route: l 14:25: IVP, [place] 00 Q2MIN, Dosing Weight 175.909, kg, PRN [...] Henok vane 0-12 Route: l 14:25: IVP, [place] 00 Q5Min, Dosing Weight 175.909, kg, PRN Other -See Comment, Start date: 06/10/15 9:25:00, Duration: 30 day, Stop date: 07/10/15 8:24:00 Naloxone 2014- No 0.1 mg, Memori a 0-12 Route: l 14:25: IVP, [place] 00 Q2MIN, Dosing Weight 175.909, kg, PRN Narcotic Reversal, Start date: 06/10/15 9:25:00, Duration: 4 doses or times, Stop date: Limited # of times Flumazenil 2014- No 0.1 mg, Henok vane 0-12 Route: l 14:25: IVP, [place] 00 Q5Min, Dosing Weight 175.909, kg, PRN Other -See Comment, Start date: 06/10/15 9:25:00, Duration: 30 day, Stop date: 07/10/15 8:24:00 Naloxone 2014- No 0.1 mg, Memori a 0-12 Route: l 14:25: IVP, [place] 00 Q2MIN, Dosing Weight 175.909, kg, PRN Narcotic Reversal, Start date: 06/10/15 9:25:00, Duration: 4 doses or times, Stop date: Limited # of times Flumazenil 2014- No 0.1 mg, Henok vane 0-12 Route: l 14:25: IVP, [place] 00 Q5Min, Dosing Weight 175.909, kg, PRN [...] Henok vane 0-12 Route: l 14:25: IVP, [place] 00 Q5Min, Dosing Weight 175.909, kg, PRN Other -See Comment, Start date: 06/10/15 9:25:00, Duration: 30 day, Stop date: 07/10/15 8:24:00 Naloxone 2014- No 0.1 mg, Memori a 0-12 Route: l 14:25: IVP, [place] 00 Q2MIN, Dosing Weight 175.909, kg, PRN [...] 0-12 Rate: 25 l 0.154 12:06: ml/hr, [place] MEQ/ML 00 Infuse Injectable over: 40 Solution [...] 0-12 Rate: 25 l 0.154 12:06: ml/hr, [place] MEQ/ML 00 Infuse Injectable over: 40 Solution hr, Route: IV, Dosing Weight 175.909 kg, Total Volume: 1,000, Start date: 06/10/15 7:06:00, Duration: 30 day, Stop date: 07/10/15 7:05:00 Sodium 2014-1 No 1,000 mL, Memori a Chloride 0-12 Rate: 25 l 0.154 12:06: ml/hr, [place] MEQ/ML 00 Infuse Injectable over: 40 Solution [...] 0-12 Rate: 25 l 0.154 12:06: ml/hr, [place] MEQ/ML 00 Infuse Injectable over: 40 Solution hr, Route: IV, Dosing Weight 175.909 kg, Total Volume: 1,000, Start date: 06/10/15 7:06:00, Duration: 30 day, Stop date: 07/10/15 7:05:00 Sodium 2014-1 No 1,000 mL, Memori a Chloride 0-12 Rate: 25 l 0.154 12:06: ml/hr, [place] MEQ/ML 00 Infuse Injectable over: 40 Solution [...] 0-12 Rate: 25 l 0.154 12:06: ml/hr, [place] MEQ/ML 00 Infuse Injectable over: 40 Solution hr, Route: IV, Dosing Weight 175.909 kg, Total Volume: 1,000, Start date: 06/10/15 7:06:00, Duration: 30 day, Stop date: 07/10/15 7:05:00 Sodium 2014-1 No 1,000 mL, Memori a Chloride 0-12 Rate: 25 l 0.154 12:06: ml/hr, [place] MEQ/ML 00 Infuse Injectable over: 40 Solution hr, Route: IV, Dosing Weight 175.909 kg, Total Volume: 1,000, Start date: 06/10/15 7:06:00, Duration: 30 day, Stop date: 07/10/15 7:05:00 Sodium 2014- No 1,000 mL, Memori a Chloride 0-12 Rate: 25 l 0.154 12:06: ml/hr, [place] MEQ/ML 00 Infuse Injectable over: 40 Solution hr, Route: IV, Dosing Weight 175.909 kg, Total Volume: 1,000, Start date: 06/10/15 7:06:00, Duration: 30 day, Stop date: 07/10/15 7:05:00 Sodium 2014- No 1,000 mL, Memori a Chloride 0-12 Rate: 25 l 0.154 12:06: ml/hr, [place] MEQ/ML 00 Infuse Injectable over: 40 Solution hr, Route: IV, Dosing Weight 175.909 kg, Total Volume: 1,000, Start date: 06/10/15 7:06:00, Duration: 30 day, Stop date: 07/10/15 7:05:00 Sodium 2014- No 1,000 mL, Memori a Chloride 0-12 Rate: 25 l 0.154 12:06: ml/hr, [place] MEQ/ML 00 Infuse Injectable over: 40 Solution [...] 0-12 Rate: 25 l 0.154 12:06: ml/hr, [place] MEQ/ML 00 Infuse Injectable over: 40 Solution [...] l Oral Tablet 19:35: BID, # 120 [place] [Trileptal] 00 tab, 0 Refill(s) Hydrochloro 2014-08 [...] l MG / 19:35: 30 tab, 0 [place] Lisinopril 00 Refill(s) 20 MG Oral Tablet oxcarbazepi 2014-08 Yes 600 mg = 2 Memoria ne 300 MG 0-09 tab, PO, l Oral Tablet 19:35: BID, # 120 [place] [Trileptal] 00 tab, 0 Refill(s) Hydrochloro 2014-08 No 1 tab, PO, Memoria thiazide 25 0-09 Daily, # l MG / 19:35: 30 tab, 0 Dav Lisinopril 00 Refill(s) 20 MG Oral Tablet oxcarbazepi 2014-08 Yes 600 mg = 2 Memoria ne 300 MG 0-09 tab, PO, l Oral Tablet 19:35: BID, # 120 [place] [Trileptal] 00 tab, 0 Refill(s) Hydrochloro 2014-08 No 1 tab, PO, Memoria thiazide 25 0-09 Daily, # l MG / 19:35: 30 tab, 0 Dav Lisinopril 00 Refill(s) 20 MG Oral Tablet oxcarbazepi 2014-08 Yes 600 mg = 2 Memoria ne 300 MG 0-09 tab, PO, l Oral Tablet 19:35: BID, # 120 [place] [Trileptal] 00 tab, 0 Refill(s) Hydrochloro 2014-08 No 1 tab, PO, Memoria thiazide 25 0-09 Daily, # l MG / 19:35: 30 tab, 0 [place] Lisinopril 00 Refill(s) 20 MG Oral Tablet oxcarbazepi 2014-08 Yes 600 mg = 2 Memoria ne 300 MG 0-09 tab, PO, l Oral Tablet 19:35: BID, # 120 [place] [Trileptal] 00 tab, 0 Refill(s) Hydrochloro 2014-08 No 1 tab, PO, Memoria thiazide 25 0-09 Daily, # l MG / 19:35: 30 tab, 0 [place] Lisinopril 00 Refill(s) 20 MG Oral Tablet oxcarbazepi 2014-08 Yes 600 mg = 2 Memoria ne 300 MG 0-09 tab, PO, l Oral Tablet 19:35: BID, # 120 [place] [Trileptal] 00 tab, 0 Refill(s) Hydrochloro 2014-08 No 1 tab, PO, Memoria thiazide 25 0-09 Daily, # l MG / 19:35: 30 tab, 0 [place] Lisinopril 00 Refill(s) 20 MG Oral Tablet oxcarbazepi 2014-08 Yes 600 mg = 2 Memoria ne 300 MG 0-09 tab, PO, l Oral Tablet 19:35: BID, # 120 [place] [Trileptal] 00 tab, 0 Refill(s) Hydrochloro 2014-08 [...] l MG / 19:35: 30 tab, 0 [place] Lisinopril 00 Refill(s) 20 MG Oral Tablet oxcarbazepi 2014-08 Yes 600 mg = 2 Memoria ne 300 MG 0-09 tab, PO, l Oral Tablet 19:35: BID, # 120 [place] [Trileptal] 00 tab, 0 Refill(s) Hydrochloro 2014-08 No 1 tab, PO, Memoria thiazide 25 0-09 Daily, # l MG / 19:35: 30 tab, 0 [place] Lisinopril 00 Refill(s) 20 MG Oral Tablet [...] l Oral Tablet 19:35: BID, # 120 [place] [Trileptal] 00 tab, 0 Refill(s) Hydrochloro 2014-08 [...] l MG / 19:35: 30 tab, 0 [place] Lisinopril 00 Refill(s) 20 MG Oral Tablet oxcarbazepi 2014-08 Yes 600 mg = 2 Memoria ne 300 MG 0-09 tab, PO, l Oral Tablet 19:35: BID, # 120 [place] [Trileptal] 00 tab, 0 Refill(s) Hydrochloro 2014-08 No 1 tab, PO, Memoria thiazide 25 0-09 Daily, # l MG / 19:35: 30 tab, 0 Dav Lisinopril 00 Refill(s) 20 MG Oral Tablet oxcarbazepi 2014-08 Yes 600 mg = 2 Memoria ne 300 MG 0-09 tab, PO, l Oral Tablet 19:35: BID, # 120 [place] [Trileptal] 00 tab, 0 Refill(s) Hydrochloro 2014-08 [...] l MG / 19:35: 30 tab, 0 [place] Lisinopril 00 Refill(s) 20 MG Oral Tablet oxcarbazepi 2014-08 Yes 600 mg = 2 Memoria ne 300 MG 0-09 tab, PO, l Oral Tablet 19:35: BID, # 120 [place] [Trileptal] 00 tab, 0 Refill(s) Hydrochloro 2014-08 No 1 tab, PO, Memoria thiazide 25 0-09 Daily, # l MG / 19:35: 30 tab, 0 Dav Lisinopril 00 Refill(s) 20 MG Oral Tablet oxcarbazepi 2014-08 Yes 600 mg = 2 Memoria ne 300 MG 0-09 tab, PO, l Oral Tablet 19:35: BID, # 120 [place] [Trileptal] 00 tab, 0 Refill(s) Hydrochloro 2014-08 No 1 tab, PO, Memoria thiazide 25 0-09 Daily, # l MG / 19:35: 30 tab, 0 [place] Lisinopril 00 Refill(s) 20 MG Oral Tablet oxcarbazepi 2014-08 Yes 600 mg = 2 Memoria ne 300 MG 0-09 tab, PO, l Oral Tablet 19:35: BID, # 120 [place] [Trileptal] 00 tab, 0 Refill(s) Hydrochloro 2014-08 No 1 tab, PO, Memoria thiazide 25 0-09 Daily, # l MG / 19:35: 30 tab, 0 [place] Lisinopril 00 Refill(s) 20 MG Oral Tablet [...] 0 Memori a 0-09 Refill(s) l 19:31: [place] Wellbutrin 2014-08 Yes PO, 0 Memori a [...] a 0-09 Refill(s) l 19:31: Dav 00 benzonatate benzonatate No benzonatat [facility] [...] Immunizations Ordered Filled Immunization Date Status Comments [facility] e Immunization Name Name SARS-COV-2 COVID-19 2021-12-16 Completed Unive rsity of MODERNA 12+ YRS 00:00:00 [facility] ical VACCINE Branch SARS-COV-2 COVID-19 2021-12-16 Completed Unive rsity of MODERNA 12+ YRS 00:00:00 [facility] ical VACCINE Branch SARS-COV-2 COVID-19 2021-12-16 Completed Unive rsity of MODERNA 12+ YRS 00:00:00 [facility] ical VACCINE [facility] COVID-19 2021-04-05 Completed Methodis t AD26 VACCINATION 00:00:00 [facility] COVID-19 2021-04-05 Completed Methodis t AD26 VACCINATION 00:00:00 [facility] COVID-19 2021-04-05 Completed Methodis t AD26 VACCINATION 00:00:00 [facility] COVID- 2021-04-05 Completed Methodis t AD26 VACCINATION 00:00:00 [facility] COVID- 2021-04-05 Completed Methodis t AD26 VACCINATION 00:00:00 [facility] [employer] 2021-04-05 Completed Methodis t AD26 VACCINATION 00:00:00 [facility] [employer] 2021-04-05 Completed Methodis t AD26 VACCINATION 00:00:00 [facility] [facility] [employer] 2021-04-05 Completed Methodis t AD26 VACCINATION 00:00:00 [facility] DAVIDE COVID-19 2021-04-05 Completed Methodis t AD26 VACCINATION 00:00:00 [facility] DAVIDE COVID-19 2021-04-05 Completed Methodis t AD26 VACCINATION 00:00:00 [facility] DAVIDE COVID-19 2021-04-05 Completed Methodis t AD26 VACCINATION 00:00:00 [facility] COVID-19 2021-04-05 Completed Methodis t AD26 VACCINATION 00:00:00 [facility] COVID-19 2021-04-05 Completed Methodis t AD26 VACCINATION 00:00:00 [facility] Flu Injectable MDCK 2020-06-03 Completed Unive rsity of Quadrivalent 00:00:00 [facility] Flu Injectable MDCK 2020-06-03 Completed Unive rsity of Quadrivalent 00:00:00 [facility] Flu Injectable MDCK 2020-06-03 Completed Unive rsity of Quadrivalent 00:00:00 [facility] Flu Injectable MDCK 2019-07-10 Completed Unive rsity of Quadrivalent 00:00:00 [facility] Flu Injectable MDCK 2019-07-10 Completed Unive rsity of Quadrivalent 00:00:00 [facility] Flu Injectable MDCK 2019-07-10 Completed Unive rsity of Quadrivalent 00:00:00 [facility] Influenza Virus 2018-05-30 Completed Universit y of Vaccine 00:00:00 [facility] Influenza Virus 2018-05-30 Completed Universit y of Vaccine 00:00:00 [facility] Influenza Virus 2018-05-30 Completed Universit y of Vaccine 00:00:00 [facility] Flu Trivalent 2017-06-11 Completed University of 00:00:00 [facility] Flu Trivalent 2017-06-11 Completed University of 00:00:00 [facility] Flu Trivalent 2017-06-11 Completed University of 00:00:00 [facility] TDAP 2016-08-22 Completed University of 00:00:00 [facility] TDAP 2016-08-22 Completed University of 00:00:00 [facility] TDAP 2016-08-22 Completed University of 00:00:00 [facility] pneumococcal 2015-08-16 Completed [facility] 23-valent 18:10:35 vaccine<sup>1</sup> pneumococcal 2015-08-16 Completed [facility] [...] blanca 23-valent 18:10:35 vaccine<sup>1</sup> pneumococcal 2015-08-16 Completed [facility] blanca 23-valent 18:10:35 vaccine<sup>1</sup> pneumococcal 2015-08-16 Completed [facility] blanca 23-valent 18:10:35 vaccine<sup>1</sup> Vital Signs Vital Name Observation Time Observation Value Comments Source Systolic blood 2023-01-19 15:48:00 151 mm[Hg] Univer sity of pressure [facility] Diastolic blood 2023-01-19 15:48:00 88 mm[Hg] Unive rsity of pressure [facility] Heart rate 2023-01-19 15:48:00 59 /min [facility]i ty of [facility] Body temperature 2023-01-19 15:48:00 35.89 Gabrielle Univ ersity of [facility] Respiratory rate 2023-01-19 15:48:00 18 /min [facility] Body height 2023-01-19 15:48:00 170.2 cm [facility] Body weight 2023-01-19 15:48:00 144.335 kg [facility] BMI 2023-01-19 15:48:00 49.84 kg/m2 [facility] Oxygen saturation in 2023-01-19 15:48:00 98 /min [facility] blood by [facility] Pulse oximetry Branch Systolic blood 2022-08-26 19:08:00 166 mm[Hg] Univer sity of pressure [facility] Diastolic blood 2022-08-26 19:08:00 99 mm[Hg] Unive rsity of pressure [facility] Heart rate 2022-08-26 19:08:00 77 /min [facility] Body temperature 2022-08-26 19:08:00 37 Gabrielle Univ ersity of [facility] Branch Respiratory rate 2022-08-26 19:08:00 18 /min Univ ersity of [facility] Body height 2022-08-26 19:08:00 170.2 cm [facility] Body weight 2022-08-26 19:08:00 147.419 kg [facility] BMI 2022-08-26 19:08:00 50.90 kg/m2 [facility] Oxygen saturation in 2022-08-26 19:08:00 98 /min University of Arterial blood by [facility] Pulse oximetry Branch BP Diastolic 2022-04-08 00:00:00 90 mm[Hg] [facility] Height 2022-04-08 00:00:00 66 [in_i] [facility] BMI (Body Mass 2022-04-08 00:00:00 53.7 kg/m2 [facility] Medical Index) BP Systolic 2022-04-08 00:00:00 142 mm[Hg] [facility] Body Weight 2022-04-08 00:00:00 333 [lb_av] [facility] BP Diastolic 2021-12-18 00:00:00 86 mm[Hg] [facility] Height 2021-12-18 00:00:00 66 [in_i] [facility] BMI (Body Mass 2021-12-18 00:00:00 54.7 kg/m2 [facility] Medical Index) BP Systolic 2021-12-18 00:00:00 140 mm[Hg] [facility] Body Weight 2021-12-18 00:00:00 339 [lb_av] [facility] BP Diastolic 2021-11-25 00:00:00 88 mm[Hg] [facility] BP Systolic 2021-11-25 00:00:00 138 mm[Hg] [facility] Body Weight 2021-11-25 00:00:00 338 [lb_av] [facility]ical Systolic blood 2022-06-12 02:38:00 128 mm[Hg] [facility] pressure Diastolic blood 2022-06-12 02:38:00 77 mm[Hg] [facility] pressure Heart rate 2022-06-12 02:38:00 63 /min [facility] Respiratory rate 2022-06-12 02:38:00 18 /min [facility] Oxygen saturation in 2022-06-12 02:38:00 97 /min [facility] Arterial blood by Pulse oximetry Body temperature 2022-06-11 23:40:00 36.5 Gabrielle [facility] Body height 2022-06-11 23:38:00 170.2 cm [facility] Body weight 2022-06-11 23:38:00 145.151 kg [facility] BMI 2022-06-11 23:38:00 50.12 kg/m2 [facility] Systolic (mm Hg) 2022-03-19 07:00:00 Henok rial Dav Diastolic (mm Hg) 2022-03-19 07:00:00 Mem orial Dav Respitory Rate 2022-03-19 07:00:00 Memori al [place] Heart Rate 2022-03-19 07:00:00 [facility] [place] Height 2022-03-19 03:25:00 170.18 cm [facility] Calculated 2022-03-19 03:25:00 Memori al [place] Weight 2022-03-19 03:25:00 [facility] [place] Systolic (mm Hg) 2022-03-19 03:25:00 Henok rial Dav Diastolic (mm Hg) 2022-03-19 03:25:00 Mem orial [place] Heart Rate 2022-03-19 03:25:00 [facility] Respitory Rate 2022-03-19 03:25:00 Memori al [place] Temperature Oral (F) 2022-03-19 03:25:00 98.4 F [facility] Temperature Oral (F) 2022-03-14 04:45:00 99.1 F [facility] Heart Rate 2022-03-14 04:45:00 [facility] Respitory Rate 2022-03-14 04:45:00 Memori al [place] Systolic (mm Hg) 2022-03-14 04:45:00 Henok rial [place] Diastolic (mm Hg) 2022-03-14 04:45:00 Mem orial [place] Weight 2022-03-14 00:40:00 [facility] Dav Systolic (mm Hg) 2022-03-14 00:40:00 Henok rial Dav Diastolic (mm Hg) 2022-03-14 00:40:00 Mem orial [place] Heart Rate 2022-03-14 00:40:00 [facility] Dav Respitory Rate 2022-03-14 00:40:00 Memori al Dav Temperature Oral (F) 2022-03-14 00:40:00 100 F [facility] Systolic (mm Hg) 2021-01-21 01:00:00 Henok rial [place] Diastolic (mm Hg) 2021-01-21 01:00:00 Mem orial Dav Heart Rate 2021-01-21 01:00:00 [facility] Dav Respitory Rate 2021-01-21 01:00:00 Memori al [place] Temperature Oral (F) 2021-01-21 01:00:00 98.5 F [facility] Height 2021-01-20 21:08:00 170.18 cm [facility] [place] BMI Calculated 2021-01-20 21:08:00 Memori al Dav Weight 2021-01-20 21:08:00 [facility] [place] Systolic (mm Hg) 2021-01-20 21:08:00 Henok rial [place] Diastolic (mm Hg) 2021-01-20 21:08:00 Mem orial Dav Heart Rate 2021-01-20 21:08:00 [facility] Dav Respitory Rate 2021-01-20 21:08:00 Memori al [place] Temperature Oral (F) 2021-01-20 21:08:00 98.7 F [facility] [place] Weight 2015-09-19 21:05:00 [facility] [place] Temperature Oral (F) 2015-09-19 20:45:00 97.7 F [facility] [place] Systolic (mm Hg) 2015-09-19 20:45:00 Henok rial [place] Diastolic (mm Hg) 2015-09-19 20:45:00 Mem orial Dav Heart Rate 2015-09-19 20:45:00 [facility] Dav Respitory Rate 2015-09-19 20:45:00 Memori al [place] Respitory Rate 2015-09-19 18:54:00 Memori al Dav Systolic (mm Hg) 2015-09-19 18:54:00 Henok rial [place] Diastolic (mm Hg) 2015-09-19 18:54:00 Mem orial Dav Respitory Rate 2015-09-19 18:39:00 Memori al [place] Systolic (mm Hg) 2015-09-19 18:39:00 Henok rial [place] Diastolic (mm Hg) 2015-09-19 18:39:00 Mem orial Dav Heart Rate 2015-09-19 18:04:00 [facility] Dav Temperature Oral (F) 2015-09-19 13:40:00 97.8 F [facility] Heart Rate 2015-09-19 13:40:00 [facility] Temperature Oral (F) 2015-09-19 11:08:00 97.9 F [facility] Weight 2015-09-18 05:03:00 [facility] [place] Weight 2015-09-18 00:07:00 [facility] [place] Height 2015-09-18 00:07:00 170.18 cm [facility] BMI Calculated 2015-09-18 00:07:00 Memori al [place] Temperature Oral (F) 2015-08-26 22:06:00 98 F [facility] [place] Heart Rate 2015-08-26 22:06:00 [facility] [place] Respitory Rate 2015-08-26 22:06:00 Memori al [place] Systolic (mm Hg) 2015-08-26 22:06:00 Henok rial [place] Diastolic (mm Hg) 2015-08-26 22:06:00 Mem orial [place] Temperature Oral (F) 2015-08-26 20:46:00 98.0 F [facility] [place] Systolic (mm Hg) 2015-08-26 20:46:00 Henok rial Dav Diastolic (mm Hg) 2015-08-26 20:46:00 Mem orial [place] Respitory Rate 2015-08-26 20:46:00 Memori al Dav Heart Rate 2015-08-26 20:46:00 [facility] [place] Weight 2015-08-26 16:38:00 [facility] [place] BMI Calculated 2015-08-26 16:38:00 [facility] al [place] Respitory Rate 2015-08-26 16:38:00 Memori al [place] Heart Rate 2015-08-26 16:38:00 [facility] Dav Systolic (mm Hg) 2015-08-26 16:38:00 Henok rial [place] Diastolic (mm Hg) 2015-08-26 16:38:00 Mem orial Dav Height 2015-08-26 16:38:00 170.18 cm [facility] [place] Temperature Oral (F) 2015-08-26 16:38:00 97.9 F [facility] Systolic (mm Hg) 2015-08-16 18:33:00 Henok rial [place] Diastolic (mm Hg) 2015-08-16 18:33:00 Mem orial Dav Heart Rate 2015-08-16 18:33:00 [facility] [place] Respitory Rate 2015-08-16 18:33:00 Memori al Dav Temperature Oral (F) 2015-08-16 18:33:00 97.9 F [facility] [place] Respitory Rate 2015-08-16 14:00:00 Memori al Dav Systolic (mm Hg) 2015-08-16 14:00:00 Henok rial [place] Diastolic (mm Hg) 2015-08-16 14:00:00 Mem orial Dav Temperature Oral (F) 2015-08-16 14:00:00 98.0 F [facility] [place] Heart Rate 2015-08-16 14:00:00 [facility] [place] Temperature Oral (F) 2015-08-16 10:20:00 98.1 F [facility] Heart Rate 2015-08-16 10:20:00 [facility] Systolic (mm Hg) 2015-08-16 10:20:00 Henok rial Dav Diastolic (mm Hg) 2015-08-16 10:20:00 Mem orial [place] Respitory Rate 2015-08-16 10:20:00 Memori al Dav Height 2015-08-15 17:30:00 170.18 cm [facility] Weight 2015-08-15 17:30:00 [facility] [place] BMI Calculated 2015-08-15 17:30:00 Memori al Dav Weight 2015-08-15 12:45:00 [facility] Height 2015-08-12 15:32:00 170.18 cm [facility] Weight 2015-08-12 15:32:00 [facility] [place] BMI Calculated 2015-08-12 15:32:00 Memori al Dav Respitory Rate 2015-06-10 14:07:00 Memori al Dav Systolic (mm Hg) 2015-06-10 14:07:00 Henok rial [place] Diastolic (mm Hg) 2015-06-10 14:07:00 Mem orial Dav Systolic (mm Hg) 2015-06-10 13:52:00 Henok rial [place] Diastolic (mm Hg) 2015-06-10 13:52:00 Mem orial [place] Respitory Rate 2015-06-10 13:52:00 Memori al Dav Systolic (mm Hg) 2015-06-10 13:37:00 Henok rial Dav Diastolic (mm Hg) 2015-06-10 13:37:00 Mem orial Dav Respitory Rate 2015-06-10 13:37:00 Memori al [place] Weight 2015-06-07 19:28:00 [facility] BMI Calculated 2015-06-07 19:28:00 Lucy Hannah Height 2015-06-07 19:28:00 170.18 cm [facility] Procedures Procedure Date / Time Performing Source Performed Clinician POCT TEST 2023-01-19 Fawad Aldrich [facility] 16:12:00 [facility] XR CHEST 2 VW 2022-08-26 [facility] of 20:46:19 [facility] RAPID INFLUENZA A/B 2022-08-26 [facility] o f 19:56:00 [facility] COVID-19 (ID NOW RAPID TESTING) 2022-08-26 [facility] of 19:56:00 [facility] NOTICE OF PRIVACY PRACTICES 2022-08-26 [facility] 18:35:53 Unassigned, No [facility] CONSENT/REFUSAL FOR DIAGNOSIS AND 2022-08-26 [facility] of TREATMENT 18:35:08 Unassigned, No [facility] URINE CULTURE 2022-06-12 Shayne Menezes 02:11:00 [facility] URINALYSIS 2022-06-12 Shayne Menezes 02:11:00 [facility] HCG QUALITATIVE, URINE SCREEN 2022-06-12 Shayne Menezes 02:11:00 [facility] INFLUENZA ANTIGEN 2022-06-12 Shayne Menezes 00:07:00 [facility] CBC WITH PLATELET AND DIFFERENTIAL 2022-06-12 Amaury Menezes 00:07:00 [facility] COMPREHENSIVE METABOLIC PANEL 2022-06-12 Shayne Menezes 00:07:00 [facility] ESTIMATED GFR 2022-06-12 Shayne Menezes 00:07:00 [facility] MANUAL DIFFERENTIAL 2022-06-12 Shayne Menezes 00:07:00 [facility] CBC WITH PLATELET AND DIFFERENTIAL 2022-06-12 Amaury Menezes 00:07:00 [facility] XR CHEST 1 VW 2022-06-11 Shayne Menezes 23:55:13 [facility] MRI PITUITARY W WO CONTRAST 2021-12-05 Longo, Kaycee [facility] 16:05:12 [facility] MRI, pituitary, w/wo contrast 2021-11-27 [facility] 00:00:00 US PELVIC TRANSABDOMINAL 2021-11-[address] 07:30:53 [facility] US PELVIC TRANSVAGINAL 2021-11-09 Edin Lakhnai 07:30:53 [facility] HCG QUALITATIVE, SERUM SCREEN 2021-11-09 [facility] 03:50:00 [facility] HC COMPLETE BLD COUNT W/AUTO DIFF 2021-11-09 Edin Lakhani 03:35:00 [facility] PROTHROMBIN TIME WITH INR 2021-11-09 Jack Lakhani ist 03:35:00 [facility] PARTIAL THROMBOPLASTIN TIME (PTT) 2021-11-09 Edin Lakhani 03:35:00 [facility] COMPREHENSIVE METABOLIC PANEL 2021-11-09 [facility] 03:35:00 [facility] ESTIMATED GFR 2021-11-09 Edin Lakhani 03:35:00 [facility] G[facility] Bypass for Ob[facility] 2014[facility]-30 [facility] 00:[facility]:00 [facility] 2014-08-30 [facility] 00:[facility]:00 Esophagogastroduodenoscopy Memor ial Dav Banding of gastric varices Memor ial [place] Arthroscopy of knee<sup>1</sup> [facility] Plan of Care Planned Activity Planned Date Details Comments Source Future Scheduled Test 2023-04-[address] [facility] 17:04:33 screening (procedure) [code = 975764725] Future Scheduled Test 2023-04-01 Screening for [facility] 17:04:33 malignant neoplasm of cervix (procedure) [code = 448773602] Future Scheduled Test 2023-04-01 COVID-19 VACCINE (3 [facility] 17:04:33 - Booster for Davide series) [code = COVID-19 VACCINE (3 - Booster for Davide series)] Future Scheduled Test 2023-04-01 INFLUENZA VACCINE M [facility] 17:04:33 [code = INFLUENZA VACCINE] Future Scheduled Test 2023-03-[address] [facility] 15:43:49 screening (procedure) [code = 200820953] Future Scheduled Test 2023-03-08 Screening for [facility] 15:43:49 malignant neoplasm of cervix (procedure) [code = 059952560] Future Scheduled Test 2023-03-08 COVID-19 VACCINE ([address] [place] [address] 15:43:49 - Booster for Davide series) [code = COVID-19 VACCINE (3 - Booster for Davide series)] Future Scheduled Test 2023-03-[address] [facility] 15:43:49 [code = INFLUENZA VACCINE] Future Scheduled Test 2023-03-[address] [facility] 15:43:49 screening (procedure) [code = 673822387] Future Scheduled Test 2023-03-08 [facility] 15:43:49 malignant neoplasm of cervix (procedure) [code = 359835728] Future Scheduled Test 2023-03-08 COVID-19 VACCINE ([address] [place] [address] 15:43:49 - Booster for Davide series) [code = COVID-19 VACCINE (3 - Booster for Davide series)] Future Scheduled Test 2023-03-[address] [facility] 15:43:49 [code = INFLUENZA VACCINE] Future Scheduled Test 2023-02-[address] [facility] 16:53:30 screening (procedure) [code = 739162481] Future Scheduled Test 2023-02-11 [facility] 16:53:30 malignant neoplasm of cervix (procedure) [code = 864434295] Future Scheduled Test 2023-02-11 COVID-19 VACCINE ([address] [place] [address] 16:53:30 - Booster for Davide series) [code = COVID-19 VACCINE (3 - Booster for Davide series)] Future Scheduled Test 2023-02-[address] [facility] 16:53:30 [code = INFLUENZA VACCINE] Future Scheduled Test 2023-02-[address] [facility] 16:53:30 screening (procedure) [code = 296363661] Future Scheduled Test 2023-02-11 [facility] 16:53:30 malignant neoplasm of cervix (procedure) [code = 124715495] Future Scheduled Test 2023-02-11 COVID-19 VACCINE ([address] [place] [address] 16:53:30 - Booster for Davide series) [code = COVID-19 VACCINE (3 - Booster for Davide series)] Future Scheduled Test 2023-02-[address] [facility] 16:53:30 [code = INFLUENZA VACCINE] Future Scheduled Test 2022-12-[address] [facility] 03:26:37 screening (procedure) [code = 599985186] Future Scheduled Test 2022-12-04 [facility] 03:26:37 malignant neoplasm of cervix (procedure) [code = 598570412] Future Scheduled Test 2022-12-04 COVID-19 VACCINE ([address] [place] [address] 03:26:37 - Booster for Davide series) [code = COVID-19 VACCINE (3 - Booster for Davide series)] Future Scheduled Test 2022-12-[address] [facility] 03:26:37 [code = INFLUENZA VACCINE] Future Scheduled Test 2022-12-[address] [facility] 03:26:37 screening (procedure) [code = 047821707] Future Scheduled Test 2022-12-04 [facility] 03:26:37 malignant neoplasm of cervix (procedure) [code = 056438580] Future Scheduled Test 2022-12-04 COVID-19 VACCINE ([address] [place] [address] 03:26:37 - Booster for Davide series) [code = COVID-19 VACCINE (3 - Booster for Davide series)] Future Scheduled Test 2022-12-[address] [facility] 03:26:37 [code = INFLUENZA VACCINE] Future Scheduled Test 2022-12-[address] [facility] 03:26:37 screening (procedure) [code = 873962479] Future Scheduled Test 2022-12-04 [facility] 03:26:37 malignant neoplasm of cervix (procedure) [code = 995328306] Future Scheduled Test 2022-12-04 COVID-19 VACCINE ([address] [place] [address] 03:26:37 - Booster for Davide series) [code = COVID-19 VACCINE (3 - Booster for Davide series)] Future Scheduled Test 2022-12-[address] [facility] 03:26:37 [code = INFLUENZA VACCINE] Future Scheduled Test 2022-12-[address] [facility] 03:26:37 screening (procedure) [code = 850722820] Future Scheduled Test 2022-12-04 [facility] 03:26:37 malignant neoplasm of cervix (procedure) [code = 926300618] Future Scheduled Test 2022-12-04 COVID-19 VACCINE ([address] [place] [address] 03:26:37 - Booster for Davide series) [code = COVID-19 VACCINE (3 - Booster for Davide series)] Future Scheduled Test 2022-12-[address] [facility] 03:26:37 [code = INFLUENZA VACCINE] Future Scheduled Test 2022-12-[address] [facility] 03:26:37 screening (procedure) [code = 727009921] Future Scheduled Test 2022-12-04 [facility] 03:26:37 malignant neoplasm of cervix (procedure) [code = 294179757] Future Scheduled Test 2022-12-04 COVID-19 VACCINE ([address] [place] [address] 03:26:37 - Booster for Davide series) [code = COVID-19 VACCINE (3 - Booster for Davide series)] Future Scheduled Test 2022-12-[address] [facility] 03:26:37 [code = INFLUENZA VACCINE] Future Scheduled Test 2022-10-[address] [facility] 21:28:36 screening (procedure) [code = 070162264] Future Scheduled Test 2022-10-17 [facility] 21:28:36 malignant neoplasm of cervix (procedure) [code = 475926647] Future Scheduled Test 2022-10-17 COVID-19 VACCINE ([address] [place] [address] 21:28:36 - Booster for Davide series) [code = COVID-19 VACCINE (3 - Booster for Davide series)] Future Scheduled Test 2022-10-[address] [facility] 21:28:36 [code = INFLUENZA VACCINE] Future Scheduled Test 2022-10-[address] [facility] 21:28:36 screening (procedure) [code = 140964401] Future Scheduled Test 2022-10-17 [facility] 21:28:36 malignant neoplasm of cervix (procedure) [code = 445458404] Future Scheduled Test 2022-10-17 COVID-19 VACCINE ([address] [place] [address] 21:28:36 - Booster for Davide series) [code = COVID-19 VACCINE (3 - Booster for Davide series)] Future Scheduled Test 2022-10-[address] [facility] 21:28:36 [code = INFLUENZA VACCINE] Future Scheduled Test 2022-10-[address] [facility] 21:28:36 screening (procedure) [code = 081625962] Future Scheduled Test 2022-10-17 [facility] 21:28:36 malignant neoplasm of cervix (procedure) [code = 670538897] Future Scheduled Test 2022-10-17 COVID-19 VACCINE ([facility] 21:28:36 - Booster for Davide series) [code = COVID-19 VACCINE (3 - Booster for Davide series)] Future Scheduled Test 2022-10-[address] [facility] 21:28:36 [code = INFLUENZA VACCINE] Diagnostic Test 2021-12-18 unlisted lab [code [facility] Pending 00:00:00 = unlisted lab] Encounters Start End Encounter Admission Attending Care Care Encounter Source Date/Time Date/Time Type Type Clinicians Facility Department ID 2022-05-13 Outpatient [facility] [id number] [place] 08:18:57 [id number] [facility] 2022-05-07 Outpatient [facility] [id number] [place] 12:12:06 [id number] [facility] 2022-05-06 Outpatient [facility] [id number] [place] 07:02:43 [id number] [facility] 2022-03-26 Outpatient [facility] [id number] [place] 11:04:27 [id number] [facility] 2022-02-06 Outpatient [facility] [id number] [place] 09:50:06 [id number] [facility] 2021-11-28 Outpatient [facility] [id number] [place] 13:41:01 [id number] [facility] 2021-11-26 Outpatient [facility] [id number] [place] 12:18:16 [id number] [facility] 2021-11-24 Outpatient [facility] [id number] [place] 06:46:20 [id number] [facility] 2016-09-10 Inpatient [facility] [id number] Johnson rris 18:31:18 Health 2016-09-03 Inpatient [facility] [id number] rris 19:49:43 Health 2016-09-02 Inpatient [facility] [id number] rris 14:46:00 Health 2016-08-28 Inpatient [facility] [id number] rris 12:49:08 Health 2016-08-25 Inpatient [facility] [id number] rris 18:38:06 Health 2016-08-25 Inpatient [facility] [id number] Johnson rris 00:00:00 [facility] 2016-08-25 Inpatient [facility] [id number] Johnson rris 00:00:00 [facility] 2016-08-24 Inpatient [facility] [id number] Johnson rris 12:38:32 [facility] 2016-08-23 Inpatient [facility] [id number] Johnson rris 23:40:15 [facility] 2016-08-23 Inpatient [facility] [id number] Johnson rris 18:01:15 [facility] 2016-08-23 Inpatient [facility] [id number] Johnson rris 05:23:14 [facility] 2016-08-23 Inpatient [facility] [id number] Johnson rris 01:38:20 [facility] 2016-08-23 Inpatient [facility] [id number] Johnson rris 01:10:06 [facility] 2016-08-22 Inpatient [facility] [id number] Johnson rris 18:58:47 [facility] 2023-02-03 2023-02-03 Outpatient R [facility] [id number] Univers 15:00:00 15:00:[address] [facility] 2023-02-01 2023-02-01 Outpatient R RADIOLOGY [facility] [id number] Univers 00:00:00 00:00:[address] [facility] 2023-01-26 2023-01-26 [facility] 1.2.840.114 [id number] Univers 00:00:00 00:00:00 Oxana CONSERVATION OFFICER 350.1.13.10 it y of REGIONAL 4.2.7.2.686 Imer as MATERNAL [id number] [facility] & CHILD [address] [place] [address] 2023-01-19 2023-01-19 [facility] [id number] Univers 10:00:00 11:31:10 FAWAD sarmiento [facility] 2023-01-19 2023-01-19 Office Valdemar [facility] [id number] [id number] Univers 10:00:00 11:31:10 Visit Fawad Lynch CONSERVATION OFFICER 350.1.13.10 it y of REGIONAL 4.2.7.2.686 Imer as MATERNAL [id number] [facility] CHILD [address] [place] [address] 2022-08-26 2022-08-26 Emergency X JAQUELIN, [facility] ERT [id number] Univers 13:09:00 16:01:00 DOUG itnawaf of [facility] 2022-08-26 2022-08-26 Emergency Jaquelin [facility] 1.2.999.180 [id number] Univers 13:09:00 16:01:00 Doug BERGMAN 350.1.13.10 i ty [facility] 4.2.7.2.686 [facility] [id number] [place] [id number] [place] 2022-08-06 2022-08-06 Outpatient [facility] [id number] [place] [address] 00:00:00 00:00:00 Health 2022-06-17 2022-06-17 Outpatient [facility], [facility] [id number] [place] 00:00:00 00:00:00 [facility] 2022-06-11 2022-06-11 Emergency Hoang, 1.2.840.1 [id number] Methodi 18:26:00 22:09:[address] 3.430.2.7 Hospit a .3.964183 l .8 2022-06-11 2022-06-11 Emergency Hoang, 1.2.840.1 [id number] [facility]i 18:26:00 22:09:[address] 3.430.2.7 Hospit a .3.369439 l .8 2022-06-11 2022-06-11 Travel 1.2.840.1 1.2.842.528 [id number] [facility]i 00:00:00 00:00:[address] 3.430.2.7 0.2.7.3.698 Ho spita .3.995244 084.8 l .8 2022-06-11 2022-06-11 Travel 1.2.840.1 1.2.945.946 9104 [id number] [facility]i 00:00:00 00:00:[address] 3.430.2.7 0.2.7.3.698 Ho spita .3.284578 084.8 l .8 2022-05-26 2022-05-26 Outpatient [facility] [id number] [place] 00:00:00 00:00:00 [facility] 2022-05-25 2022-05-25 Outpatient CHAPIN, [facility] [id number] [place] 00:00:00 00:00:00 [facility] 2022-05-25 2022-05-25 Outpatient [facility] PRIV PRIV [id number] [facility] 00:00:00 00:00:00 _Digivania_R [id number] Medic al 2022-05-13 2022-05-13 Outpatient JUSTINE, [facility] [id number] [place] 08:26:30 11:29:53 [facility] 2022-05-07 2022-05-07 [facility] Suzette CASTLETON 1.2.840.114 [id number] [place] 00:00:00 12:48:36 Steff Prince 350.1.13.43 He alth .2.7.2.6869 [id number] 3273-09-02 2022-05-01 Outpatient [facility] [id number] [place] 00:00:00 00:00:00 [facility] 2022-04-14 2022-04-14 Outpatient [facility] [id number] [place] 00:00:00 00:00:00 [facility] 2022-04-14 2022-04-14 [facility] [id number] [place] 00:00:00 00:00:00 [facility] 2022-04-08 2022-04-08 Outpatient [facility] PRIV PRIV [id number] [facility] 00:00:00 00:00:00 _Chloé_R [id number] Medic al 2022-04-08 2022-04-08 Kaycee [facility] 10 [facility] 00:00:00 00:00:00 Rubina Longo Medic al 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 2022-04-08 2022-04-08 Outpatient Donta PRIV PRIV [id number] e-1 00:00:00 00:00:00 Kaycee [id number]-11ed-b [id number] 2022-04-06 2022-04-06 [facility] [id number] [place] 13:48:21 14:32:31 [facility] 2022-03-31 2022-03-31 Outpatient [facility] [id number] [place] 00:00:00 00:00:00 [facility] 2022-03-19 2022-03-19 Emergency [facility] [id number] Memoria 03:20:40 07:05:00 r Dav 02 [facility] 2022-03-19 2022-03-19 Emergency [facility]Fl[facility] [id number] Memoria 03:20:40 07:05:00 r Dav 02 [facility] 2022-03-18 2022-03-19 Outpatient Bruce, [facility]ENPL [facility]PL [id number] 22:20:40 02:05:00 Reeva 02 [facility] 2022-03-18 2022-03-19 Emergency E ALLEN BOLANOSBL MHBL [id number] 22:20:00 02:05:00 REEVA 2022-03-14 2022-03-14 Emergency [facility] [id number] Memoria 00:15:07 05:00:00 r Dav 01 [facility] 2022-03-14 2022-03-14 Emergency [facility] [id number] Memoria 00:15:07 05:00:00 r Dav 01 [facility] 2022-03-13 2022-03-14 Outpatient Martha, [facility] [id number] 19:15:07 00:00:00 Abdiwahab 01 [facility] 2022-03-13 2022-03-14 Outpatient Martha, [facility] [id number] 19:15:07 00:00:00 Abdiwahab 01 [facility] 2022-03-13 2022-03-14 Emergency E ALLEN THOMASBL MHBL [id number] MHBL 19:15:00 00:00:00 ABDIWAHAB 2022-02-24 2022-02-24 Outpatient SUZETTE [facility] [id number] [place] 09:53:24 10:41:58 [facility] 2022-02-24 2022-02-24 Outpatient [facility] [id number] [place] 10:34:06 10:41:26 [facility] 2022-02-23 2022-02-24 Outpatient SHILPA, [facility] [id number] [place] 14:37:42 07:15:27 [facility] 2022-02-24 2022-02-24 [id number] [place] 00:00:00 00:00:00 [facility] 2022-02-10 2022-02-10 [facility] [id number] [place] 00:00:00 00:00:00 [facility] 2022-02-10 2022-02-10 [facility] [id number] [place] 00:00:00 00:00:00 [facility] 2022-02-05 2022-02-06 Emergency 1 [facility] [id number] [place] 23:16:00 01:00:00 [facility] 2022-02-05 2022-02-06 Emergency [facility] [id number] [place] 23:16:00 01:00:00 [facility] 2022-02-05 2022-02-05 Emergency [facility] [id number] [place] 23:32:16 23:55:28 [facility] 2022-02-05 2022-02-05 [facility] [id number] [place] 21:30:24 21:41:51 [facility] 2022-02-04 2022-02-04 Outpatient CYNTHIA, [facility] [id number] [place] 13:16:26 14:54:03 [facility] 2022-01-20 2022-01-20 [facility] [id number] [place] 08:08:28 09:07:11 [facility] 2022-01-20 2022-01-20 Outpatient [facility] [id number] [place] 08:40:24 08:55:12 [facility] 2022-01-20 2022-01-20 Outpatient [facility] [id number] [place] 00:00:00 00:00:00 [facility] 2022-01-20 2022-01-20 [facility] [id number] [place] 00:00:00 00:00:00 [facility] 2022-01-02 2022-01-02 Outpatient NATHALIE KATHRYN [facility] [id number] [place] 00:00:00 00:00:00 [facility] 2021-12-30 2021-12-30 Outpatient FERNANDOZENOBIAGALE, [facility] [id number] [place] 09:12:55 10:28:29 [facility] 2021-12-30 2021-12-30 Outpatient [facility] [id number] [place] 09:43:20 09:55:06 [facility] 2021-12-30 2021-12-30 Outpatient SUZETTE, [facility] [id number] [place] 00:00:00 00:00:00 [facility] 2021-12-18 2021-12-18 Outpatient [facility] PRIV PRIV [id number] [facility] 11:17:00 11:17:00 _Diggs_R [id number] Medic al 2021-12-18 2021-12-18 Outpatient [facility] PRIV PRIV [id number] [facility] 11:17:00 11:17:00 _Diggs_R [id number] Medic al 2021-12-18 2021-12-18 Outpatient [facility] PRIV PRIV [id number] [facility] 11:17:00 11:17:00 _Diggs_R [id number] Medic al 2021-12-18 2021-12-18 Outpatient Longo, PRIV PRIV [id number] a-c 00:00:00 00:00:00 Kaycee 25f-11ec-b [id number] 2021-12-18 2021-12-18 Kaycee PRIV [facility] - [facility]:00:00 00:00:00 [facility] - Medic al 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 2021-12-16 2021-12-16 Outpatient 3 PRESLEY PERAZA [facility] [id number] [place] 13:29:29 14:47:42 [facility] 2021-12-16 2021-12-16 Outpatient PRESLEY PERAZA [facility] [id number] [place] 13:29:29 14:47:42 Health 2021-12-16 2021-12-16 [facility] [id number] [place] 00:00:00 00:00:00 [facility] 2021-12-05 2021-12-05 [facility] Chloé, 1.2.840.1 [id number] Methodi 09:34:18 23:59:00 Encounter Laith 00188.1.1 729 s t Peter 3.430.2.7 Hospit a .3.471051 l .8 2021-12-05 2021-12-05 Travel 1.2.840.1 1.2.343.201 [id number] [facility] 00:00:00 00:00:[address] 3.430.2.7 0.2.7.3.698 Ho spita .3.135588 084.8 l .8 2021-11-27 2021-11-27 Outpatient [facility] PRIV PRIV [id number] [facility] 01:52:00 01:52:00 _Diggs_R [id number] Medic al 2021-11-27 2021-11-27 Travel 1.2.840.1 1.2.910.490 6175 [id number] [facility] 00:00:00 00:00:[address] 3.430.2.7 0.2.7.3.698 Ho spita .3.981907 084.8 l .8 2021-11-27 2021-11-27 Transcribe Donta 1.2.840.1 [id number] [facility] 00:00:00 00:00:00 Orders Kaycee Higgins 81184.1.[address] 3.430.2.7 Hospit a .3.700471 l .8 2021-11-25 2021-11-25 Outpatient [facility] PRIV PRIV [id number] [facility] 05:22:00 05:22:00 _Diggs_R [id number] Medic al 2021-11-25 2021-11-25 [facility] [id number] [place] 00:00:00 00:00:00 [facility] 2021-11-25 2021-11-25 Kaycee [facility] 00:00:00 00:00:00 Donta [facility] Medic al SENIOR SOFTWARE DEVELOPMENT ENGINEER: [address] [facility] [address], [address], [place] [address] , Ph. 2021-11-25 2021-11-25 Outpatient Donta PRIV PRIV [id number] 00:00:00 00:00:00 Kaycee 4-11ec-a [id number] 2021-11-24 2021-11-24 Outpatient [facility] PRIV PRIV [id number] [facility] 09:14:00 09:14:00 _Diggs_R [id number] Medic al 2021-11-12 2021-11-12 Outpatient [facility] PRIV PRIV [id number] [facility] 10:32:00 10:32:00 _Diggs_R [id number] Medic al 2021-11-11 2021-11-11 [facility] [id number] [place] 15:32:00 17:59:00 [facility] 2021-11-11 2021-11-11 Out[place] [id number] [place] 09:22:13 10:07:10 [facility] 2021-11-11 2021-11-11 Outpatient [facility] [id number] [place] 09:43:27 09:47:12 [facility] 2021-11-11 2021-11-11 Outpatient [place] [id number] [place] 00:00:00 00:00:00 [facility] 2021-11-08 2021-11-09 Emergency Jack-Chris 1.2.840.1 [id number] [facility] 21:17:00 03:19:[address] 3.430.2.7 Hospit a .3.925205 l .8 2021-10-27 2021-10-27 Outpatient [place] [id number] [place] 15:38:32 16:13:58 [facility] 2021-10-27 2021-10-27 Outpatient [facility] [id number] [place] 15:28:33 15:53:26 Health 2021-10-27 2021-10-27 Outpatient NORBERTOALI, [facility] [id number] [place] 15:00:16 15:00:16 [facility] 2021-10-27 2021-10-27 Outpatient FERNANDOUGHALI, [facility] [id number] [place] 00:00:00 00:00:00 [facility] 2021-10-27 2021-10-27 [facility] [id number] [place] 00:00:00 00:00:00 [facility] 2021-09-14 2021-09-14 Emergency GABRIELLA JACK [facility] [id number] [place] 00:00:00 00:00:00 534 Method i 2021-08-22 2021-08-22 Emergency SAIGE [facility] [id number] [place] [address] 00:00:00 00:00:00 CASH [facility] 2021-07-22 2021-07-22 Outpatient [facility] [id number] [place] 00:00:00 00:00:00 [facility] 2021-07-17 2021-07-17 [facility] [id number] [place] 07:38:50 15:27:52 [facility] 2021-05-16 2021-05-16 [facility] [id number] [place] 12:55:35 13:20:54 [facility] 2021-04-03 2021-04-03 [facility] [id number] [place] 10:24:01 11:40:13 [facility] 2021-04-03 2021-04-03 [facility] [id number] [place] 11:20:44 11:27:55 [facility] 2021-04-03 2021-04-03 [facility] [id number] [place] 00:00:00 00:00:00 [facility] 2021-02-10 2021-02-10 [facility] [id number] [place] 07:38:38 14:43:22 [facility] 2021-01-20 2021-01-21 Emergency [facility] [id number] [place] 21:01:36 01:40:00 r Dav 00 l [facility] 2021-01-20 2021-01-21 Emergency [facility] [id number] [place] 21:01:36 01:40:00 r Dav 00 l [facility] 2021-01-20 2021-01-20 Outpatient Paul [facility] [id number] 16:01:36 20:40:00 Domingo Guzman 00 2021-01-20 2021-01-20 Emergency E PAUL, [facility] [id number] [facility] [facility] 16:01:00 20:40:00 DOMINGO 2021-01-20 2021-01-20 [facility] [id number] [place] 10:49:10 12:23:17 [facility] 2021-01-20 2021-01-20 Outpatient [facility] [id number] [place] 11:36:48 11:56:15 [facility] 2021-01-09 2021-01-09 [facility] [id number] [place] 11:01:40 13:18:27 [facility] 2021-01-02 2021-01-02 Emergency JAMILA, [facility] [id number] [place] 00:00:00 00:00:00 MICHELLE [address] 2020-12-25 2020-12-25 Outpatient LARRY-YU [facility] [id number] [place] 00:00:00 00:00:00 Nawaf GÓMEZ [facility] 2020-12-25 2020-12-25 Outpatient YING GALVAN [facility] [id number] [place] 00:00:00 00:00:00 [facility] 2020-12-10 2020-12-10 Outpatient TATO CONNOLLY [facility] [id number] [place] 00:00:00 00:00:00 [facility] 2020-11-28 2020-11-28 Outpatient ABNER MORALES [facility] [id number] [place] 09:52:10 10:35:59 [facility] 2020-11-28 2020-11-28 [facility] [id number] [place] 08:52:57 09:35:01 [facility] 2020-11-28 2020-11-28 [facility] [id number] [place] 00:00:00 00:00:00 [facility] 2020-11-26 2020-11-26 Outpatient LARRY-YU [facility] [id number] [place] 10:26:31 12:37:58 Y, GÓMEZ [facility] 2020-11-26 2020-11-26 Outpatient LARRY-SHARRONLE [facility] [id number] [place] 00:00:00 00:00:00 Y, GÓMEZ [facility] 2020-11-22 2020-11-22 [facility] [id number] [place] 09:06:46 09:06:46 [facility] 2020-11-21 2020-11-21 [facility] [id number] [place] 00:00:00 00:00:00 [facility] 2020-11-21 2020-11-21 [facility] [id number] [place] 00:00:00 00:00:00 [facility] 2020-11-18 2020-11-18 [facility] [id number] [place] 07:34:19 14:53:54 [facility] 2020-11-14 2020-11-14 [id number] [place] 00:00:00 00:00:00 [facility] 2020-11-12 2020-11-12 [facility] [id number] [place] 19:20:48 23:59:00 [facility] 2020-11-07 2020-11-07 [facility] [id number] [place] 10:15:36 16:17:47 [facility] 2020-11-07 2020-11-07 [id number] [place] 00:00:00 00:00:00 [facility] 2020-11-06 2020-11-06 Outpatient ABNER MORALES [facility] [id number] [place] 09:10:44 09:31:28 [facility] 2020-11-06 2020-11-06 Outpatient ABNER MORALES [facility] [id number] [place] 09:03:03 09:13:38 Health 2020-11-06 2020-11-06 Outpatient ABNER MORALES [facility] [id number] [place] 00:00:00 00:00:00 [facility] 2020-11-06 2020-11-06 Outpatient JOAN, [facility] [id number] [place] 00:00:00 00:00:00 [facility] 2020-11-04 2020-11-04 Emergency [facility] [id number] [place] 07:18:00 08:55:00 NERY Roche 2020-10-31 2020-10-31 [id number] [place] 00:00:00 00:00:00 [facility] 2020-10-24 2020-10-24 [facility] [id number] [place] 08:03:09 08:03:09 [facility] 2020-10-23 2020-10-23 Outpatient LAKESHIA [facility] [id number] [place] 07:29:24 12:11:59 Y, GÓEMZ [facility] 2020-10-23 2020-10-23 [id number] [place] 00:00:00 00:00:00 [facility] 2020-10-23 2020-10-23 Outpatient [facility] [id number] [place] 00:00:00 00:00:00 [facility] 2020-10-17 2020-10-17 [facility] [id number] [place] 00:00:00 00:00:00 [facility] 2020-10-10 2020-10-10 [facility] [id number] [place] 07:17:49 15:53:36 [facility] 2020-10-03 2020-10-03 [facility] [id number] [place] 07:29:37 07:29:37 [facility] 2020-09-26 2020-09-26 [facility] [id number] [place] 07:11:20 07:11:20 [facility] 2020-07-24 2020-07-24 [facility] [id number] [place] 00:00:00 00:00:[address] [facility] 2020-01-25 2020-01-25 [id number] [place] 00:00:00 00:00:00 [facility] 2019-11-01 2019-11-01 Outpatient [facility] [id number] [place] 00:00:00 00:00:00 [facility] 2019-10-19 2019-10-19 Outpatient [facility] [id number] [place] 00:00:00 00:00:00 [facility] 2019-10-11 2019-10-11 Outpatient [facility] [id number] [place] 00:00:00 00:00:00 [facility] 2019-09-28 2019-09-28 Outpatient [facility] [id number] [place] 00:00:00 00:00:00 [facility] 2019-09-22 2019-09-22 Outpatient [facility] [id number] [place] 00:00:00 00:00:00 [facility] 2019-09-22 2019-09-22 Outpatient [facility] [id number] [place] 00:00:00 00:00:00 [facility] 2019-09-08 2019-09-08 Outpatient [facility] [id number] [place] 00:00:00 00:00:00 [facility] 2019-09-06 2019-09-06 Outpatient [facility] [id number] [place] 00:00:00 00:00:00 [facility] 2019-08-29 2019-08-29 Outpatient [facility] [id number] [place] 08:07:37 08:07:37 Health 2019-08-11 2019-08-11 Outpatient [facility] [id number] [place] 14:34:35 14:34:35 Health 2019-08-11 2019-08-11 Outpatient [facility] [id number] [place] 14:10:42 14:10:42 [facility] 2019-08-11 2019-08-11 Outpatient [facility] [id number] [place] 00:00:00 00:00:00 [facility] 2019-08-03 2019-08-03 Outpatient [facility] [id number] [place] 10:45:43 10:45:43 Health 2019-08-01 2019-08-01 Outpatient [facility] [id number] [place] 08:17:31 08:17:31 Health 2019-07-12 2019-07-12 Outpatient [facility] [id number] [place] 13:34:12 13:34:12 Health 2019-07-10 2019-07-10 Outpatient [facility] [id number] [place] 10:18:59 10:18:59 Health 2019-07-10 2019-07-10 Outpatient [facility] [id number] [place] 09:23:42 09:23:42 Health 2019-07-10 2019-07-10 Outpatient [facility] [id number] [place] 00:00:00 00:00:00 [facility] 2019-07-05 2019-07-05 Outpatient [facility] [id number] [place] 00:00:00 00:00:00 [facility] 2019-06-21 2019-06-21 Outpatient [facility] [id number] [place] 14:43:36 14:43:36 [facility] 2019-05-31 2019-05-31 Outpatient [facility] [id number] [place] 09:01:41 09:01:41 [facility] 2019-05-31 2019-05-31 Outpatient [facility] [id number] [place] 00:00:00 00:00:00 [facility] 2019-04-21 2019-04-21 Outpatient [facility] [id number] [place] 00:00:00 00:00:00 [facility] 2019-04-14 2019-04-14 Outpatient [facility] [id number] [place] 14:55:03 14:55:03 [facility] 2019-04-07 2019-04-07 Outpatient [facility] [id number] [place] 00:00:00 00:00:00 [facility] 2019-04-07 2019-04-07 Outpatient [facility] [id number] [place] 00:00:00 00:00:00 [facility] 2019-04-07 2019-04-07 Outpatient [facility] [id number] [place] 00:00:00 00:00:00 [facility] 2019-04-06 2019-04-06 Outpatient [facility] [id number] [place] 00:00:00 00:00:00 [facility] 2019-04-05 2019-04-05 Outpatient [facility] [id number] [place] 00:00:00 00:00:00 [facility] 2019-03-29 2019-03-29 Outpatient [facility] [id number] [place] 15:23:28 15:23:28 [facility] 2019-03-28 2019-03-28 Outpatient [facility] [id number] [place] 16:10:03 16:10:03 [facility] 2019-03-28 2019-03-28 Outpatient [facility] [id number] [place] 14:56:12 14:56:12 [facility] 2019-03-28 2019-03-28 Outpatient [facility] [id number] [place] 00:00:00 00:00:00 [facility] 2019-03-24 2019-03-24 Outpatient [facility] [id number] [place] 15:03:38 15:03:38 [facility] 2019-03-10 2019-03-10 Outpatient [facility] [id number] [place] 00:00:00 00:00:00 [facility] 2019-03-09 2019-03-09 Outpatient [facility] [id number] [place] 14:32:57 14:32:57 [facility] 2019-03-03 2019-03-03 Outpatient [facility] [id number] [place] 13:53:33 13:53:33 [facility] 2019-02-23 2019-02-23 Outpatient [facility] [id number] [place] 13:41:45 13:41:45 [facility] 2019-02-16 2019-02-16 Outpatient [facility] [id number] [place] 14:30:15 14:30:15 [facility] 2019-02-09 2019-02-09 Outpatient [facility] [id number] [place] 00:00:00 00:00:00 [facility] 2019-01-18 2019-01-18 Outpatient [facility] [id number] [place] 15:15:44 15:15:44 [facility] 2019-01-11 2019-01-11 Outpatient [facility] [id number] [place] 00:00:00 00:00:00 [facility] 2019-01-04 2019-01-04 Outpatient [facility] [id number] [place] 00:00:00 00:00:00 [facility] 2019-01-02 2019-01-02 Outpatient [facility] [id number] [place] 10:29:45 10:29:45 [facility] 2018-12-20 2018-12-20 Outpatient [facility] [id number] [place] 14:29:22 14:29:22 [facility] 2018-12-12 2018-12-12 Outpatient [facility] [id number] [place] 00:00:00 00:00:00 [facility] 2018-12-07 2018-12-07 Outpatient [facility] [id number] [place] 00:00:00 00:00:00 [facility] 2018-11-18 2018-11-18 Outpatient [facility] [id number] [place] 00:00:00 00:00:00 [facility] 2018-10-27 2018-10-27 Outpatient [facility] [id number] [place] 00:00:00 00:00:00 [facility] 2018-10-25 2018-10-25 Outpatient [facility] [id number] [place] 09:12:01 09:12:01 [facility] 2018-10-25 2018-10-25 Outpatient [facility] [id number] [place] 00:00:00 00:00:00 [facility] 2018-09-29 2018-09-29 Outpatient [facility] [id number] [place] 11:41:40 11:41:40 [facility] 2018-09-22 2018-09-22 Outpatient [facility] [id number] [place] 00:00:00 00:00:00 [facility] 2018-09-21 2018-09-21 Outpatient [facility] [id number] [place] 13:17:51 13:17:51 [facility] 2018-08-08 2018-08-08 Outpatient [facility] [id number] [place] 15:08:56 15:08:56 [facility] 2018-08-08 2018-08-08 Outpatient [facility] [id number] [place] 13:50:11 13:50:11 [facility] 2018-04-20 2018-04-20 Outpatient [facility] [id number] [place] 00:00:00 00:00:00 [facility] 2018-04-11 2018-04-11 Outpatient [facility] [id number] [place] 00:00:00 00:00:00 [facility] 2018-03-24 2018-03-24 Outpatient [facility] [id number] [place] 14:30:08 14:30:08 [facility] 2018-03-11 2018-03-11 Outpatient [facility] [id number] [place] 08:59:56 08:59:56 [facility] 2018-03-09 2018-03-09 Outpatient [facility] [id number] [place] 15:10:05 15:10:05 [facility] 2018-02-25 2018-02-25 Outpatient [facility] [id number] [place] 00:00:00 00:00:00 [facility] 2018-02-22 2018-02-22 Outpatient [facility] [id number] [place] 09:47:44 09:47:44 [facility] 2018-02-01 2018-02-01 Outpatient [facility] [id number] [place] 15:31:00 15:31:00 [facility] 2018-02-01 2018-02-01 Outpatient [facility] [id number] [place] 00:00:00 00:00:00 [facility] 2018-01-28 2018-01-28 Outpatient [facility] [id number] [place] 14:25:09 14:25:09 [facility] 2018-01-13 2018-01-13 Outpatient [facility] [id number] [place] 00:00:00 00:00:00 [facility] 2018-01-07 2018-01-07 Outpatient [facility] [id number] [place] 00:00:00 00:00:00 [facility] 2018-01-06 2018-01-06 Outpatient [facility] [id number] [place] 08:49:34 08:49:34 [facility] 2018-01-03 2018-01-03 Outpatient [facility] [id number] [place] 09:36:54 09:36:54 [facility] 2017-12-23 2017-12-23 Outpatient [facility] [id number] [place] 09:40:46 09:40:46 [facility] 2017-12-09 2017-12-09 Outpatient [facility] [id number] [place] 15:13:23 15:13:23 [facility] 2017-11-25 2017-11-25 Outpatient [facility] [id number] [place] 00:00:00 00:00:00 [facility] 2017-11-24 2017-11-24 Outpatient [facility] [id number] [place] 15:38:59 15:38:59 [facility] 2017-11-24 2017-11-24 Outpatient [facility] [id number] [place] 00:00:00 00:00:00 [facility] 2017-11-22 2017-11-22 Outpatient [facility] [id number] [place] 15:36:55 15:36:55 [facility] 2017-11-17 2017-11-17 Outpatient [facility] [id number] [place] 00:00:00 00:00:00 [facility] 2017-11-11 2017-11-11 Outpatient [facility] [id number] [place] 14:05:46 14:05:46 [facility] 2017-11-10 2017-11-10 Outpatient [facility] [id number] [place] 00:00:00 00:00:00 [facility] 2017-11-03 2017-11-03 Outpatient [facility] [id number] [place] 00:00:00 00:00:00 [facility] 2017-10-27 2017-10-27 Outpatient [facility] [id number] [place] 00:00:00 00:00:00 [facility] 2017-10-20 2017-10-20 Outpatient [facility] [id number] [place] 00:00:00 00:00:00 [facility] 2017-10-13 2017-10-13 Outpatient [facility] [id number] [place] 00:00:00 00:00:00 [facility] 2017-10-08 2017-10-08 Outpatient [facility] [id number] [place] 13:12:58 13:12:58 [facility] 2017-10-08 2017-10-08 Outpatient [facility] [id number] [place] 00:00:00 00:00:00 [facility] 2017-10-04 2017-10-04 Outpatient [facility] [id number] [place] 00:00:00 00:00:00 [facility] 2017-10-01 2017-10-01 Outpatient [facility] [id number] [place] 16:05:17 16:05:17 [facility] 2017-10-01 2017-10-01 Outpatient [facility] [id number] [place] 15:08:55 15:08:55 [facility] 2017-09-09 2017-09-09 Outpatient [facility] [id number] [place] 09:51:17 09:51:17 [facility] 2017-09-08 2017-09-08 Outpatient [facility] [id number] [place] 14:31:52 14:31:52 [facility] 2017-07-28 2017-07-28 Outpatient [facility] [id number] [place] 09:51:18 09:51:18 [facility] 2017-07-18 2017-07-18 Emergency [facility] [id number] [place] 14:53:14 14:53:14 [facility] 2017-07-18 2017-07-18 Inpatient [facility] [id number] [place] 12:13:57 12:13:57 [facility] 2017-07-07 2017-07-07 Outpatient [facility] [id number] [place] 14:50:08 14:50:08 [facility] 2017-06-11 2017-06-11 Outpatient [facility] [id number] [place] 13:28:35 13:28:35 [facility] 2017-06-10 2017-06-10 Outpatient [facility] [id number] [place] 15:39:29 15:39:29 [facility] 2017-06-08 2017-06-08 Outpatient [facility] [id number] [place] 13:05:47 13:05:47 [facility] 2017-06-04 2017-06-04 Outpatient [facility] [id number] [place] 12:40:45 12:40:45 [facility] 2017-06-03 2017-06-03 Outpatient [facility] [id number] [place] 00:00:00 00:00:00 [facility] 2017-06-01 2017-06-01 Outpatient [facility] [id number] [place] 12:36:26 12:36:26 [facility] 2017-05-14 2017-05-14 Outpatient [facility] [id number] [place] 08:24:03 08:24:03 [facility] 2017-05-14 2017-05-14 Outpatient [facility] [id number] [place] 07:23:07 07:23:07 [facility] 2017-04-30 2017-04-30 Outpatient [facility] [id number] [place] 00:00:00 00:00:00 [facility] 2017-04-26 2017-04-26 Outpatient [facility] [id number] [place] 00:00:00 00:00:00 [facility] 2017-04-14 2017-04-14 Outpatient [facility] [id number] [place] 10:24:05 10:24:05 [facility] 2017-04-08 2017-04-08 Outpatient [facility] [id number] [place] 00:00:00 00:00:00 [facility] 2017-04-07 2017-04-07 Outpatient [facility] [id number] [place] 14:24:22 14:24:22 [facility] 2017-04-02 2017-04-02 Outpatient [facility] [id number] [place] 00:00:00 00:00:00 [facility] 2017-03-30 2017-03-30 Outpatient [facility] [id number] [place] 00:00:00 00:00:00 [facility] 2017 2017 Outpatient [facility] [id number] [place] 11:11:06 11:11:06 [facility] 2017-03-12 2017-03-12 Outpatient [facility] [id number] [place] 13:12:40 13:12:40 [facility] 2017-02-19 2017-02-19 Outpatient [facility] [id number] [place] 00:00:00 00:00:00 [facility] 2017-02-03 2017-02-03 Outpatient [facility] [id number] [place] 14:38:51 14:38:51 [facility] 2017-01-18 2017-01-18 Outpatient [facility] [id number] [place] 00:00:00 00:00:00 [facility] 2017-01-13 2017-01-13 Outpatient [facility] [id number] [place] 00:00:00 00:00:00 [facility] 2016-12-30 2016-12-30 Outpatient [facility] [id number] [place] 08:21:55 08:21:55 [facility] 2016-12-28 2016-12-28 Outpatient [facility] [id number] [place] 13:12:13 13:12:13 [facility] 2016-12-16 2016-12-16 Outpatient [facility] [id number] [place] 12:31:42 12:31:42 [facility] 2016-12-14 2016-12-14 Outpatient [facility] [id number] [place] 00:00:00 00:00:00 [facility] 2016-11-30 2016-11-30 Outpatient [facility] [id number] [place] 13:19:09 13:19:09 [facility] 2016-11-26 2016-11-26 Outpatient [facility] [id number] [place] 13:39:33 13:39:33 [facility] 2016-11-26 2016-11-26 Outpatient [facility] [id number] [place] 13:37:06 13:37:06 [facility] 2016-11-23 2016-11-23 Outpatient [facility] [id number] [place] 13:27:22 13:27:22 [facility] 2016-11-16 2016-11-16 Outpatient [facility] [id number] [place] 08:29:28 08:29:28 [facility] 2016-11-06 2016-11-06 Outpatient [facility] [id number] [place] 14:10:51 14:10:51 [facility] 2016-10-13 2016-10-13 Outpatient [facility] [id number] [place] 11:00:58 11:00:58 [facility] 2016-10-08 2016-10-08 Outpatient [facility] [id number] [place] 12:56:54 12:56:54 [facility] 2016-10-08 2016-10-08 Outpatient [facility] [id number] [place] 12:49:38 12:49:38 [facility] 2016-10-07 2016-10-07 Outpatient [facility] [id number] [place] 15:36:29 15:36:29 [facility] 2016-10-07 2016-10-07 Outpatient [facility] [id number] [place] 14:16:34 14:16:34 [facility] 2016-09-30 2016-09-30 Outpatient [facility] [id number] [place] 09:07:30 09:07:30 [facility] 2016-09-11 2016-09-11 Outpatient [facility] [id number] [place] 11:28:30 11:28:30 [facility] 2016-08-22 2016-08-22 Emergency [facility] [id number] [place] 22:23:29 22:23:29 [facility] 2016-08-22 2016-08-22 Emergency [facility] [id number] [place] 19:44:23 19:44:23 [facility] 2016-08-22 2016-08-22 Emergency [facility] [id number] [place] 19:17:50 19:17:50 [facility] 2016-08-22 2016-08-22 Emergency [facility] [id number] [place] 19:15:09 19:15:09 [facility] 2015-09-18 2015-09-19 Inpatient nullFlavo [facility] [id number] [place] 00:04:00 22:29:00 liang Demarco 04 l [facility] 2015-09-18 2015-09-19 Inpatient nullFlavo [facility] [id number] [place] 00:04:00 22:29:[address] [facility] 2015-09-17 2015-09-19 Outpatient Prudencio, MHSE MHSE [id number] 18:04:00 16:29:00 González 04 2015-08-26 2015-08-26 EC [facility] [id number] [place] 16:33:00 22:17:00 Emergency r Dav 03 [facility] 2015-08-26 2015-08-26 EC [facility] [id number] [place] 16:33:00 22:17:00 Emergency r Conway 03 [facility] 2015-08-26 2015-08-26 Outpatient Mello, MHSE MHSE [id number] 10:33:00 16:17:00 Natocaridad Mcqueen 2015-08-15 2015-08-16 Inpatient [facility] [id number] [place] 11:50:00 22:33:[address] [facility] 2015-08-15 2015-08-16 Inpatient [facility] [id number] [place] 11:50:00 22:33:[address] [facility] 2015-08-15 2015-08-16 Outpatient AlvertoRamsesan MHSE MHSE [id number] 05:50:00 16:33:00 Clyde 02 2015-06-24 2015-07-24 OP [facility] [id number] [place] 20:15:00 05:59:00 Recurring r Dav 01 [facility] 2015-06-24 2015-07-24 OP [facility]Fl[facility] [id number] [place] 20:15:00 05:59:00 Recurring r Dav 01 [facility] 2015-06-24 2015-07-23 Outpatient Mcclendon, MHSE MHSE [id number] 15:15:00 23:59:00 Sam Garcia 2015-06-24 2015-06-25 [facility]patient [facility] [id number] [place] 14:21:00 04:59:[address] [facility] 2015-06-24 2015-06-25 Outpatient [facility] [id number] [place] 14:21:00 04:59:[address] [facility] 2015-06-24 2015-06-24 Outpatient Mcclendon, MHSE MHSE [id number] 09:21:00 23:59:00 Sam [place] 2015-05-23 2015-06-22 OP [facility] [id number] [place] 15:41:00 04:59:00 Recurring r Dav 00 l [facility] 2015-05-23 2015-06-22 OP [facility] [id number] [place] 15:41:00 04:59:00 Recurring r Conway 00 l [facility] 2015-05-23 2015-06-21 Outpatient Mcclendon, MHSE MHSE [id number] 10:41:00 23:59:00 Sam W 2015-06-10 2015-06-10 Bedded [facility] [id number] [place] 11:23:00 14:36:00 Outpatient r Conway 00 l [facility] 2015-06-10 2015-06-10 Bedded [facility]Fl[facility] [id number] [place] 11:23:00 14:36:00 Outpatient r Dav 00 [facility] 2015-06-10 2015-06-10 Outpatient Hakan, MHSE [place] [id number] 06:23:00 09:36:00 Sam W Results Test Description Test Time Test Comments Results Result Comments Source POCT TEST 2023-01-19 16:12:00 Test Item Value Reference Range Interpretation Comme nts POCT PREG (test code = 1605) Negative On board controls acceptable with C Line (test code = 3574) Yes POCT PREG LOT # (test code = 3575) PO[facility]REG TEST DATE (test code = 3576[id number] 16:12:00 Test Item Value Reference Range Interpretation Comments POCT PREG (test code = 1605) Negative On board controls acceptable with C Yes Line (test code = 3574) POCT PREG LOT # (test code = 3575) POCT PREG TEST DATE (test code = 3576) [facility] [id number] 05:01:00 Test Item Value Reference Range Interpretation Comments HS Troponin I (test code = HS Troponin 5 I) [facility] [id number] 05:01:00 Test Item Value Reference Range Interpretation Comments Glucose Lvl (test code = Glucose Lvl) 96 70-99 [place] [id number] 05:01:00 Test Item Value Reference Range Interpretation Comments BUN (test code = BUN) 16 7-22 [place] [id number] 05:01:00 Test Item Value Reference Range Interpretation Comments Creatinine Lvl (test code = Creatinine 0.73 0.50-1.40 Lvl) [place] [id number] 05:01:00 Test Item Value Reference Range Interpretation Comments Sodium Lvl (test code = Sodium Lvl) 141 135-145 [place] [id number] 05:01:00 Test Item Value Reference Range Interpretation Comments Potassium Lvl (test code = Potassium 3.6 3.5-5.1 Lvl) [facility]2022-07-21 05:01:00 Test Item Value Reference Range Interpretation Comments Chloride Lvl (test code = Chloride Lvl) 110 95-109 [facility]2022-07-21 05:01:00 Test Item Value Reference Range Interpretation Comments CO2 (test code = CO2) 25 24-32 [place] [id number] 05:01:00 Test Item Value Reference Range Interpretation Comments Calcium Lvl (test code = Calcium Lvl) 9.3 8.5-10.5 [facility]2022-07-21 05:01:00 Test Item Value Reference Range Interpretation Comments Total Protein (test code = Total 7.2 6.4-8.4 Protein) [facility]2022-07-21 05:01:00 Test Item Value Reference Range Interpretation Comments Albumin Lvl (test code = Albumin Lvl) 3.7 3.5-5.0 [place] 656902-07-21 05:01:00 Test Item Value Reference Range Interpretation Comments ALT (test code = ALT) 59 See_Comment [Auto mated message] The system which ge nerated this result transmit arvind reference range : <=65. The reference range was not used to interpr et this result as mario l/abnormal. [place]6902-07-21 05:01:00 Test Item Value Reference Range Interpretation Comments AST (test code = AST) 24 See_Comment [Auto mated message] The system which ge nerated this result transmit arvind reference range : <=37. The reference range was not used to interpr et this result as mario l/abnormal. [facility] [id number] 05:01:00 Test Item Value Reference Range Interpretation Comments Alk Phos (test code = Alk Phos) 60 39-136 [place] 656902-07-21 05:01:00 Test Item Value Reference Range Interpretation Comments Bili Total (test code = Bili Total) 0.2 0.2-1.3 [place] 656902-07-21 05:01:00 Test Item Value Reference Range Interpretation Comments AGAP (test code = AGAP) 9.6 10.0-20.0 [place] 656902-07-21 05:01:00 Test Item Value Reference Range Interpretation Comments B/C Ratio (test code = B/C Ratio) 22 1 6-25 [place] 656902-07-21 05:01:00 Test Item Value Reference Range Interpretation Comments Globulin (test code = Globulin) 3.5 2.7-4.2 [facility]2022-07-21 05:01:00 Test Item Value Reference Range Interpretation Comments A/G Ratio (test code = A/G Ratio) 1.1 1 0.7-1.6 [place] 656902-07-21 05:01:00 Test Item Value Reference Range Interpretation Comments eGFR (test code = eGFR) 112 [facility] CenterRjlxcrqAUZYQWPOQY7578-21-01 05:01:00 Test Item Value Reference Range Interpretation Comments WBC (test code = WBC) 6.4 3.7-10.4 [place] 440272-07-21 05:01:00 Test Item Value Reference Range Interpretation Comments RBC (test code = RBC) 5.28 4.20-5.40 [place] 440272-07-21 05:01:00 Test Item Value Reference Range Interpretation Comments Hgb (test code = Hgb) 14.1 12.0-16.0 [place] 440272-07-21 05:01:00 Test Item Value Reference Range Interpretation Comments Hct (test code = Hct) 43.0 36.0-48.0 [place] 440272-07-21 05:01:00 Test Item Value Reference Range Interpretation Comments MCV (test code = MCV) 81.4 80.0-98.0 [facility] CenterGudtlebLKKEGQMNOJ1386-24-86 05:01:00 Test Item Value Reference Range Interpretation Comments MCH (test code = MCH) 26.7 pg 27.0-31.0 [facility] CenterWutquqdYIQLUKMJER6230-27-89 05:01:00 Test Item Value Reference Range Interpretation Comments MCHC (test code = MCHC) 32.9 32.0-36.0 [facility] CenterXzfjdmgSIXDMJQMZS7053-58-72 05:01:00 Test Item Value Reference Range Interpretation Comments RDW (test code = RDW) 14.1 11.5-14.5 [facility] CenterRlgfrvpFYPJLIJUFP6588-88-81 05:01:00 Test Item Value Reference Range Interpretation Comments Platelet (test code = Platelet) 237 133-450 [facility] CenterNtkcpfhLQDNSUIKKZ5883-34-77 05:01:00 Test Item Value Reference Range Interpretation Comments MPV (test code = MPV) 9.1 7.4-10.4 [facility] CenterJwskdnsPCJCCKMRWY0583-24-82 05:01:00 Test Item Value Reference Range Interpretation Comments PT (test code = PT) 12.4 s 12.0-14.7 [facility] CenterZaqfrldLLBEHSBTRQ0236-02-87 05:01:00 Test Item Value Reference Range Interpretation Comments INR (test code = INR) 0.93 1 0.85-1.17 [facility] CenterAitnienBGTBIHLUWG7309-01-61 05:01:00 Test Item Value Reference Range Interpretation Comments PTT (test code = PTT) 26.5 s 22.9-35.8 [facility] CenterGhimxkfCPWAQJYJZP3767-06-28 05:01:00 Test Item Value Reference Range Interpretation Comments Segs (test code = Segs) 40.0 45.0-75.0 [place] 440272-07-21 05:01:00 Test Item Value Reference Range Interpretation Comments Lymphocytes (test code = Lymphocytes) 49.7 20.0-40.0 [facility] CenterXnnjfllMZDHOTPAMN3773-20-88 05:01:00 Test Item Value Reference Range Interpretation Comments Monocytes (test code = Monocytes) 8.5 2.0-12.0 [facility] CenterFnchyebEYDYDPTPXC7256-24-19 05:01:00 Test Item Value Reference Range Interpretation Comments Eosinophils (test code = 1.0 See_Comment [A utomated message] The Eosinophils) system which ge nerated this result tra nsmitted reference range : <=4.0. The reference r kat was not used to int erpret this result as normal/abnormal . [facility]DwsdsqsUGEDTREQDT3028-48-91 05:01:00 Test Item Value Reference Range Interpretation Comments Basophils (test code = 0.8 See_Comment [Aut omated message] The Basophils) system which ge nerated this result tra nsmitted reference range : <=1.0. The reference r kat was not used to int erpret this result as normal/abnormal . [facility] InstituteTevnwftIPGXMCUYOD0717-61-00 05:01:00 Test Item Value Reference Range Interpretation Comments Neutrophils # (test code = Neutrophils 2.5 1.5-8.1 #) [facility] InstituteUbwczmeCISUDKXMUT2460-90-54 05:01:00 Test Item Value Reference Range Interpretation Comments Lymphocytes # (test code = Lymphocytes 3.2 1.0-5.5 #) [facility] InstituteAqsmsecHHDWHJFUEP9014-77-66 05:01:00 Test Item Value Reference Range Interpretation Comments Monocytes # (test code 0.5 See_Comment [Aut omated message] The = Monocytes #) system which generated this result tra nsmitted reference range : <=0.8. The reference r kat was not used to int erpret this result as normal/abnormal . [facility] InstituteJztsybjVSKRHOSPTC2561-48-78 05:01:00 Test Item Value Reference Range Interpretation Comments Eosinophils # (test code 0.1 See_Comment [A utomated message] The = Eosinophils #) system whic h generated this result tra nsmitted reference range : <=0.5. The reference r kat was not used to int erpret this result as normal/abnormal . [facility]CARD[facility] ESQUGOR9183-13-02 05:01:00 Test Item Value Reference Range Interpretation Comments HS Troponin I (test code = HS Troponin 5 I) [facility] [id number] 05:01:00 Test Item Value Reference Range Interpretation Comments Glucose Lvl (test code = Glucose Lvl) 96 70-99 [facility] [id number] 05:01:00 Test Item Value Reference Range Interpretation Comments BUN (test code = BUN) 16 7-22 [facility]2022-07-21 05:01:00 Test Item Value Reference Range Interpretation Comments Creatinine Lvl (test code = Creatinine 0.73 0.50-1.40 Lvl) [place] 656902-07-21 05:01:00 Test Item Value Reference Range Interpretation Comments Sodium Lvl (test code = Sodium Lvl) 141 135-145 [place] 656902-07-21 05:01:00 Test Item Value Reference Range Interpretation Comments Potassium Lvl (test code = Potassium 3.6 3.5-5.1 Lvl) [place] 656902-07-21 05:01:00 Test Item Value Reference Range Interpretation Comments Chloride Lvl (test code = Chloride Lvl) 110 95-109 [place] 656902-07-21 05:01:00 Test Item Value Reference Range Interpretation Comments CO2 (test code = CO2) 25 24-32 [place] 656902-07-21 05:01:00 Test Item Value Reference Range Interpretation Comments Calcium Lvl (test code = Calcium Lvl) 9.3 8.5-10.5 [place] 656902-07-21 05:01:00 Test Item Value Reference Range Interpretation Comments Total Protein (test code = Total 7.2 6.4-8.4 Protein) [place] 656902-07-21 05:01:00 Test Item Value Reference Range Interpretation Comments Albumin Lvl (test code = Albumin Lvl) 3.7 3.5-5.0 [place] 656902-07-21 05:01:00 Test Item Value Reference Range Interpretation Comments ALT (test code = ALT) 59 See_Comment [Auto mated message] The system which ge nerated this result transmit arvind reference range : <=65. The reference range was not used to interpr et this result as mario l/abnormal. [place] 656902-07-21 05:01:00 Test Item Value Reference Range Interpretation Comments AST (test code = AST) 24 See_Comment [Auto mated message] The system which ge nerated this result transmit arvind reference range : <=37. The reference range was not used to interpr et this result as mario l/abnormal. [place] 656902-07-21 05:01:00 Test Item Value Reference Range Interpretation Comments Alk Phos (test code = Alk Phos) 60 39-136 [facility]2022-07-21 05:01:00 Test Item Value Reference Range Interpretation Comments Bili Total (test code = Bili Total) 0.2 0.2-1.3 [facility]2022-07-21 05:01:00 Test Item Value Reference Range Interpretation Comments AGAP (test code = AGAP) 9.6 10.0-20.0 [facility]2022-07-21 05:01:00 Test Item Value Reference Range Interpretation Comments B/C Ratio (test code = B/C Ratio) 22 1 6-25 [facility]2022-07-21 05:01:00 Test Item Value Reference Range Interpretation Comments Globulin (test code = Globulin) 3.5 2.7-4.2 [facility]2022-07-21 05:01:00 Test Item Value Reference Range Interpretation Comments A/G Ratio (test code = A/G Ratio) 1.1 1 0.7-1.6 [facility]2022-07-21 05:01:00 Test Item Value Reference Range Interpretation Comments eGFR (test code = eGFR) 112 [facility] CenterQqqauozAVIKMJHKUQ3000-24-14 05:01:00 Test Item Value Reference Range Interpretation Comments WBC (test code = WBC) 6.4 3.7-10.4 [facility] CenterRhuxcsvRNTJKTQPLK0296-86-09 05:01:00 Test Item Value Reference Range Interpretation Comments RBC (test code = RBC) 5.28 4.20-5.40 [facility] CenterWlnlfezIPCURPNTEF1627-54-04 05:01:00 Test Item Value Reference Range Interpretation Comments Hgb (test code = Hgb) 14.1 12.0-16.0 [place] 440272-07-21 05:01:00 Test Item Value Reference Range Interpretation Comments Hct (test code = Hct) 43.0 36.0-48.0 [place] 440272-07-21 05:01:00 Test Item Value Reference Range Interpretation Comments MCV (test code = MCV) 81.4 80.0-98.0 [facility] CenterSktvcubFEONPBWJXK5130-58-28 05:01:00 Test Item Value Reference Range Interpretation Comments MCH (test code = MCH) 26.7 pg 27.0-31.0 [place] 440272-07-21 05:01:00 Test Item Value Reference Range Interpretation Comments MCHC (test code = MCHC) 32.9 32.0-36.0 [place] 440272-07-21 05:01:00 Test Item Value Reference Range Interpretation Comments RDW (test code = RDW) 14.1 11.5-14.5 [place] 440272-07-21 05:01:00 Test Item Value Reference Range Interpretation Comments Platelet (test code = Platelet) 237 133-450 [facility] CenterLflfdpiRQDJTXMJVV4501-05-93 05:01:00 Test Item Value Reference Range Interpretation Comments MPV (test code = MPV) 9.1 7.4-10.4 [place] 440272-07-21 05:01:00 Test Item Value Reference Range Interpretation Comments PT (test code = PT) 12.4 s 12.0-14.7 [place] 440272-07-21 05:01:00 Test Item Value Reference Range Interpretation Comments INR (test code = INR) 0.93 1 0.85-1.17 [facility] CenterGijzbhxIJBLNSDLYO6175-72-67 05:01:00 Test Item Value Reference Range Interpretation Comments PTT (test code = PTT) 26.5 s 22.9-35.8 [place] 440272-07-21 05:01:00 Test Item Value Reference Range Interpretation Comments Segs (test code = Segs) 40.0 45.0-75.0 [facility] CenterSynbrqzOAHVRWNUYQ4801-62-83 05:01:00 Test Item Value Reference Range Interpretation Comments Lymphocytes (test code = Lymphocytes) 49.7 20.0-40.0 [facility] CenterDxsnfmdENULDCXAHK6739-86-32 05:01:00 Test Item Value Reference Range Interpretation Comments Monocytes (test code = Monocytes) 8.5 2.0-12.0 [place] 440272-07-21 05:01:00 Test Item Value Reference Range Interpretation Comments Eosinophils (test code = 1.0 See_Comment [A utomated message] The Eosinophils) system which ge nerated this result tra nsmitted reference range : <=4.0. The reference r kat was not used to int erpret this result as normal/abnormal . [facility] CenterEklojpsFFQGQYHAHG8012-37-37 05:01:00 Test Item Value Reference Range Interpretation Comments Basophils (test code = 0.8 See_Comment [Aut omated message] The Basophils) system which ge nerated this result tra nsmitted reference range : <=1.0. The reference r kat was not used to int erpret this result as normal/abnormal . [facility] CenterKqlzmmiMJDIAEAVIJ4819-66-48 05:01:00 Test Item Value Reference Range Interpretation Comments Neutrophils # (test code = Neutrophils 2.5 1.5-8.1 #) [facility]IzjejsdPNQADNDEXO1148-29-83 05:01:00 Test Item Value Reference Range Interpretation Comments Lymphocytes # (test code = Lymphocytes 3.2 1.0-5.5 #) [facility] CenterObznpsjDEHTSAIXSL1757-79-21 05:01:00 Test Item Value Reference Range Interpretation Comments Monocytes # (test code 0.5 See_Comment [Aut omated message] The = Monocytes #) system which generated this result tra nsmitted reference range : <=0.8. The reference r kat was not used to int erpret this result as normal/abnormal . [facility] CenterYmlashiJYANKJQMCX1953-15-36 05:01:00 Test Item Value Reference Range Interpretation Comments Eosinophils # (test code 0.1 See_Comment [A utomated message] The = Eosinophils #) system whic h generated this result tra nsmitted reference range : <=0.5. The reference r kat was not used to int erpret this result as normal/abnormal . [facility] XDZZBXN3828-69-96 05:01:00 Test Item Value Reference Range Interpretation Comments HS Troponin I (test code = HS Troponin 5 I) [facility] [id number] 05:01:00 Test Item Value Reference Range Interpretation Comments Glucose Lvl (test code = Glucose Lvl) 96 70-99 [facility] [id number] 05:01:00 Test Item Value Reference Range Interpretation Comments BUN (test code = BUN) 16 7-22 [facility]Bi[facility] [id number] 05:01:00 Test Item Value Reference Range Interpretation Comments Creatinine Lvl (test code = Creatinine 0.73 0.50-1.40 Lvl) [facility] [id number] 05:01:00 Test Item Value Reference Range Interpretation Comments Sodium Lvl (test code = Sodium Lvl) 141 135-145 [place]6902-07-21 05:01:00 Test Item Value Reference Range Interpretation Comments Potassium Lvl (test code = Potassium 3.6 3.5-5.1 Lvl) [place]6902-07-21 05:01:00 Test Item Value Reference Range Interpretation Comments Chloride Lvl (test code = Chloride Lvl) 110 95-109 [place] 656902-07-21 05:01:00 Test Item Value Reference Range Interpretation Comments CO2 (test code = CO2) 25 24-32 [place]6902-07-21 05:01:00 Test Item Value Reference Range Interpretation Comments Calcium Lvl (test code = Calcium Lvl) 9.3 8.5-10.5 [place] 656902-07-21 05:01:00 Test Item Value Reference Range Interpretation Comments Total Protein (test code = Total 7.2 6.4-8.4 Protein) [place] 656902-07-21 05:01:00 Test Item Value Reference Range Interpretation Comments Albumin Lvl (test code = Albumin Lvl) 3.7 3.5-5.0 [place] 656902-07-21 05:01:00 Test Item Value Reference Range Interpretation Comments ALT (test code = ALT) 59 See_Comment [Auto mated message] The system which ge nerated this result transmit arvind reference range : <=65. The reference range was not used to interpr et this result as mario l/abnormal. [place] 656902-07-21 05:01:00 Test Item Value Reference Range Interpretation Comments AST (test code = AST) 24 See_Comment [Auto mated message] The system which ge nerated this result transmit arvind reference range : <=37. The reference range was not used to interpr et this result as mario l/abnormal. [place] 656902-07-21 05:01:00 Test Item Value Reference Range Interpretation Comments Alk Phos (test code = Alk Phos) 60 39-136 [place] 656902-07-21 05:01:00 Test Item Value Reference Range Interpretation Comments Bili Total (test code = Bili Total) 0.2 0.2-1.3 [place] 656902-07-21 05:01:00 Test Item Value Reference Range Interpretation Comments AGAP (test code = AGAP) 9.6 10.0-20.0 [facility] [id number] 05:01:00 Test Item Value Reference Range Interpretation Comments B/C Ratio (test code = B/C Ratio) 22 1 6-25 [facility] [id number] 05:01:00 Test Item Value Reference Range Interpretation Comments Globulin (test code = Globulin) 3.5 2.7-4.2 [facility] [id number] 05:01:00 Test Item Value Reference Range Interpretation Comments A/G Ratio (test code = A/G Ratio) 1.1 1 0.7-1.6 [facility]2022-07-21 05:01:00 Test Item Value Reference Range Interpretation Comments eGFR (test code = eGFR) 112 [facility] CenterOqstagrYHKAMUETXY2756-55-47 05:01:00 Test Item Value Reference Range Interpretation Comments WBC (test code = WBC) 6.4 3.7-10.4 [facility] YNMXXCJ6562-57-07 05:01:00 Test Item Value Reference Range Interpretation Comments HS Troponin I (test code = HS Troponin 5 I) [facility] [id number] 05:01:00 Test Item Value Reference Range Interpretation Comments Glucose Lvl (test code = Glucose Lvl) 96 70-99 [facility] [id number] 05:01:00 Test Item Value Reference Range Interpretation Comments BUN (test code = BUN) 16 7-22 [facility] CenterXznhaesEBKEEHYTXS6343-39-39 05:01:00 Test Item Value Reference Range Interpretation Comments RBC (test code = RBC) 5.28 4.20-5.40 [facility] [id number] 05:01:00 Test Item Value Reference Range Interpretation Comments Creatinine Lvl (test code = Creatinine 0.73 0.50-1.40 Lvl) [facility] [id number] 05:01:00 Test Item Value Reference Range Interpretation Comments Sodium Lvl (test code = Sodium Lvl) 141 135-145 [facility] [id number] 05:01:00 Test Item Value Reference Range Interpretation Comments Potassium Lvl (test code = Potassium 3.6 3.5-5.1 Lvl) [place]6902-07-21 05:01:00 Test Item Value Reference Range Interpretation Comments Chloride Lvl (test code = Chloride Lvl) 110 95-109 [place] 656902-07-21 05:01:00 Test Item Value Reference Range Interpretation Comments CO2 (test code = CO2) 25 24-32 [facility]2022-07-21 05:01:00 Test Item Value Reference Range Interpretation Comments Calcium Lvl (test code = Calcium Lvl) 9.3 8.5-10.5 [facility]2022-07-21 05:01:00 Test Item Value Reference Range Interpretation Comments Total Protein (test code = Total 7.2 6.4-8.4 Protein) [facility]2022-07-21 05:01:00 Test Item Value Reference Range Interpretation Comments Albumin Lvl (test code = Albumin Lvl) 3.7 3.5-5.0 [facility]2022-07-21 05:01:00 Test Item Value Reference Range Interpretation Comments ALT (test code = ALT) 59 See_Comment [Auto mated message] The system which ge nerated this result transmit arvind reference range : <=65. The reference range was not used to interpr et this result as mario l/abnormal. [facility]2022-07-21 05:01:00 Test Item Value Reference Range Interpretation Comments AST (test code = AST) 24 See_Comment [Auto mated message] The system which ge nerated this result transmit arvind reference range : <=37. The reference range was not used to interpr et this result as mario l/abnormal. [facility] CenterNldnbamGGPONSWIMH2139-22-56 05:01:00 Test Item Value Reference Range Interpretation Comments Hgb (test code = Hgb) 14.1 12.0-16.0 [place]6902-07-21 05:01:00 Test Item Value Reference Range Interpretation Comments Alk Phos (test code = Alk Phos) 60 39-136 [facility]2022-07-21 05:01:00 Test Item Value Reference Range Interpretation Comments Bili Total (test code = Bili Total) 0.2 0.2-1.3 [place]6902-07-21 05:01:00 Test Item Value Reference Range Interpretation Comments AGAP (test code = AGAP) 9.6 10.0-20.0 [facility]2022-07-21 05:01:00 Test Item Value Reference Range Interpretation Comments B/C Ratio (test code = B/C Ratio) 22 1 6-25 [facility]2022-07-21 05:01:00 Test Item Value Reference Range Interpretation Comments Globulin (test code = Globulin) 3.5 2.7-4.2 [facility]2022-07-21 05:01:00 Test Item Value Reference Range Interpretation Comments A/G Ratio (test code = A/G Ratio) 1.1 1 0.7-1.6 [facility]2022-07-21 05:01:00 Test Item Value Reference Range Interpretation Comments eGFR (test code = eGFR) 112 [facility] CenterBxcapjzDVXUZKUOPA0819-49-09 05:01:00 Test Item Value Reference Range Interpretation Comments WBC (test code = WBC) 6.4 3.7-10.4 [facility] CenterGwjaxflLXROILJFWE8743-13-97 05:01:00 Test Item Value Reference Range Interpretation Comments RBC (test code = RBC) 5.28 4.20-5.40 [facility] CenterQnumxbkZQQZWOUNZK1807-05-03 05:01:00 Test Item Value Reference Range Interpretation Comments Hgb (test code = Hgb) 14.1 12.0-16.0 [facility] CenterCqmvlzrBJSDHZBEWA6428-40-97 05:01:00 Test Item Value Reference Range Interpretation Comments Hct (test code = Hct) 43.0 36.0-48.0 [facility] CenterTpyjuhkXAPDPNPXDK5591-74-06 05:01:00 Test Item Value Reference Range Interpretation Comments Hct (test code = Hct) 43.0 36.0-48.0 [place]272-07-21 05:01:00 Test Item Value Reference Range Interpretation Comments MCV (test code = MCV) 81.4 80.0-98.0 [place] 440272-07-21 05:01:00 Test Item Value Reference Range Interpretation Comments MCH (test code = MCH) 26.7 pg 27.0-31.0 [facility] CenterUuczrehJQETDMFKWY8092-25-58 05:01:00 Test Item Value Reference Range Interpretation Comments MCHC (test code = MCHC) 32.9 32.0-36.0 [place] 440272-07-21 05:01:00 Test Item Value Reference Range Interpretation Comments RDW (test code = RDW) 14.1 11.5-14.5 [place]272-07-21 05:01:00 Test Item Value Reference Range Interpretation Comments Platelet (test code = Platelet) 237 133-450 [place] 440272-07-21 05:01:00 Test Item Value Reference Range Interpretation Comments MPV (test code = MPV) 9.1 7.4-10.4 [place] 440272-07-21 05:01:00 Test Item Value Reference Range Interpretation Comments PT (test code = PT) 12.4 s 12.0-14.7 [place]272-07-21 05:01:00 Test Item Value Reference Range Interpretation Comments INR (test code = INR) 0.93 1 0.85-1.17 [place]272-07-21 05:01:00 Test Item Value Reference Range Interpretation Comments PTT (test code = PTT) 26.5 s 22.9-35.8 [place] 440272-07-21 05:01:00 Test Item Value Reference Range Interpretation Comments MCV (test code = MCV) 81.4 80.0-98.0 [place]272-07-21 05:01:00 Test Item Value Reference Range Interpretation Comments Segs (test code = Segs) 40.0 45.0-75.0 [place]272-07-21 05:01:00 Test Item Value Reference Range Interpretation Comments Lymphocytes (test code = Lymphocytes) 49.7 20.0-40.0 [place]272-07-21 05:01:00 Test Item Value Reference Range Interpretation Comments Monocytes (test code = Monocytes) 8.5 2.0-12.0 [place]272-07-21 05:01:00 Test Item Value Reference Range Interpretation Comments Eosinophils (test code = 1.0 See_Comment [A utomated message] The Eosinophils) system which ge nerated this result tra nsmitted reference range : <=4.0. The reference r kat was not used to int erpret this result as normal/abnormal . [facility] CenterZxcrgdaPYLLCXRDVI5489-49-76 05:01:00 Test Item Value Reference Range Interpretation Comments Basophils (test code = 0.8 See_Comment [Aut omated message] The Basophils) system which ge nerated this result tra nsmitted reference range : <=1.0. The reference r kat was not used to int erpret this result as normal/abnormal . [facility] CenterYdvqcnkQEKVYVQZEJ3196-25-18 05:01:00 Test Item Value Reference Range Interpretation Comments Neutrophils # (test code = Neutrophils 2.5 1.5-8.1 #) [facility] CenterPwwzectBONMGCRJLG4484-00-89 05:01:00 Test Item Value Reference Range Interpretation Comments Lymphocytes # (test code = Lymphocytes 3.2 1.0-5.5 #) [facility] CenterLajcsqcRKETVJATJB9630-14-01 05:01:00 Test Item Value Reference Range Interpretation Comments Monocytes # (test code 0.5 See_Comment [Aut omated message] The = Monocytes #) system which generated this result tra nsmitted reference range : <=0.8. The reference r kat was not used to int erpret this result as normal/abnormal . [facility] CenterDlybrvtFJRZUEHLOO6118-68-98 05:01:00 Test Item Value Reference Range Interpretation Comments Eosinophils # (test code 0.1 See_Comment [A utomated message] The = Eosinophils #) system whic h generated this result tra nsmitted reference range : <=0.5. The reference r kat was not used to int erpret this result as normal/abnormal . [facility] CenterTqngckjFZSGYWNXBM5777-23-66 05:01:00 Test Item Value Reference Range Interpretation Comments MCH (test code = MCH) 26.7 pg 27.0-31.0 [facility] CenterCkvykbuUXJKKOAQEZ8534-54-17 05:01:00 Test Item Value Reference Range Interpretation Comments MCHC (test code = MCHC) 32.9 32.0-36.0 [facility] CenterBhqlkpcZBXJEOALFQ5219-56-28 05:01:00 Test Item Value Reference Range Interpretation Comments RDW (test code = RDW) 14.1 11.5-14.5 [facility] CenterIfaijwhPIWWVZCCVT3431-92-01 05:01:00 Test Item Value Reference Range Interpretation Comments Platelet (test code = Platelet) 237 133-450 [facility] CenterWnhjxssNVFVOEDCEG0155-01-34 05:01:00 Test Item Value Reference Range Interpretation Comments MPV (test code = MPV) 9.1 7.4-10.4 [facility] CenterIfnvglrZSVPFUBVFJ8998-80-80 05:01:00 Test Item Value Reference Range Interpretation Comments PT (test code = PT) 12.4 s 12.0-14.7 [facility] CenterAdwmbfiSZAPFUHTFG5805-93-79 05:01:00 Test Item Value Reference Range Interpretation Comments INR (test code = INR) 0.93 1 0.85-1.17 [place] 440272-07-21 05:01:00 Test Item Value Reference Range Interpretation Comments PTT (test code = PTT) 26.5 s 22.9-35.8 [place] 440272-07-21 05:01:00 Test Item Value Reference Range Interpretation Comments Segs (test code = Segs) 40.0 45.0-75.0 [place] 440272-07-21 05:01:00 Test Item Value Reference Range Interpretation Comments Lymphocytes (test code = Lymphocytes) 49.7 20.0-40.0 [place] 440272-07-21 05:01:00 Test Item Value Reference Range Interpretation Comments Monocytes (test code = Monocytes) 8.5 2.0-12.0 [facility] CenterCdfekowIXAPJRIXXH0394-11-91 05:01:00 Test Item Value Reference Range Interpretation Comments Eosinophils (test code = 1.0 See_Comment [A utomated message] The Eosinophils) system which ge nerated this result tra nsmitted reference range : <=4.0. The reference r kat was not used to int erpret this result as normal/abnormal . [facility] CenterKycqdpaHSWQGPFUIY6497-24-34 05:01:00 Test Item Value Reference Range Interpretation Comments Basophils (test code = 0.8 See_Comment [Aut omated message] The Basophils) system which ge nerated this result tra nsmitted reference range : <=1.0. The reference r kat was not used to int erpret this result as normal/abnormal . [place] 440272-07-21 05:01:00 Test Item Value Reference Range Interpretation Comments Neutrophils # (test code = Neutrophils 2.5 1.5-8.1 #) [place] 440272-07-21 05:01:00 Test Item Value Reference Range Interpretation Comments Lymphocytes # (test code = Lymphocytes 3.2 1.0-5.5 #) [facility]WllkmaoSJPBRZUJWL6844-25-57 05:01:00 Test Item Value Reference Range Interpretation Comments Monocytes # (test code 0.5 See_Comment [Aut omated message] The = Monocytes #) system which generated this result tra nsmitted reference range : <=0.8. The reference r kat was not used to int erpret this result as normal/abnormal . [facility] InstituteMrgnpoyDBADKDZKXB5248-76-24 05:01:00 Test Item Value Reference Range Interpretation Comments Eosinophils # (test code 0.1 See_Comment [A utomated message] The = Eosinophils #) system whic h generated this result tra nsmitted reference range : <=0.5. The reference r kat was not used to int erpret this result as normal/abnormal . [facility]CARD[facility] HQUNLIH8104-15-18 05:01:00 Test Item Value Reference Range Interpretation Comments HS Troponin I (test code = HS Troponin 5 I) [facility] HospitalBiocro[facility] [id number] 05:01:00 Test Item Value Reference Range Interpretation Comments Glucose Lvl (test code = Glucose Lvl) 96 70-99 [facility] [id number] 05:01:00 Test Item Value Reference Range Interpretation Comments BUN (test code = BUN) 16 7-22 [facility] [id number] 05:01:00 Test Item Value Reference Range Interpretation Comments Creatinine Lvl (test code = Creatinine 0.73 0.50-1.40 Lvl) [facility]ptownInterpretOmicsCAROMONT [id number] 05:01:00 Test Item Value Reference Range Interpretation Comments Sodium Lvl (test code = Sodium Lvl) 141 135-145 [facility] [id number] 05:01:00 Test Item Value Reference Range Interpretation Comments Potassium Lvl (test code = Potassium 3.6 3.5-5.1 Lvl) [facility] [id number] 05:01:00 Test Item Value Reference Range Interpretation Comments Chloride Lvl (test code = Chloride Lvl) 110 95-109 [facility] [id number] 05:01:00 Test Item Value Reference Range Interpretation Comments CO2 (test code = CO2) 25 24-32 [facility] [id number] 05:01:00 Test Item Value Reference Range Interpretation Comments Calcium Lvl (test code = Calcium Lvl) 9.3 8.5-10.5 [place] 656902-07-21 05:01:00 Test Item Value Reference Range Interpretation Comments Total Protein (test code = Total 7.2 6.4-8.4 Protein) [place] 656902-07-21 05:01:00 Test Item Value Reference Range Interpretation Comments Albumin Lvl (test code = Albumin Lvl) 3.7 3.5-5.0 [place] 656902-07-21 05:01:00 Test Item Value Reference Range Interpretation Comments ALT (test code = ALT) 59 See_Comment [Auto mated message] The system which ge nerated this result transmit arvind reference range : <=65. The reference range was not used to interpr et this result as mario l/abnormal. [place] 656902-07-21 05:01:00 Test Item Value Reference Range Interpretation Comments AST (test code = AST) 24 See_Comment [Auto mated message] The system which ge nerated this result transmit arvind reference range : <=37. The reference range was not used to interpr et this result as mario l/abnormal. [facility]2022-07-21 05:01:00 Test Item Value Reference Range Interpretation Comments Alk Phos (test code = Alk Phos) 60 39-136 [facility] HospitalBioc[facility] [id number] 05:01:00 Test Item Value Reference Range Interpretation Comments Bili Total (test code = Bili Total) 0.2 0.2-1.3 [place] 656902-07-21 05:01:00 Test Item Value Reference Range Interpretation Comments AGAP (test code = AGAP) 9.6 10.0-20.0 [facility] [id number] 05:01:00 Test Item Value Reference Range Interpretation Comments B/C Ratio (test code = B/C Ratio) 22 1 6-25 [place] 656902-07-21 05:01:00 Test Item Value Reference Range Interpretation Comments Globulin (test code = Globulin) 3.5 2.7-4.2 [facility] HospitalBi[facility] [id number] 05:01:00 Test Item Value Reference Range Interpretation Comments A/G Ratio (test code = A/G Ratio) 1.1 1 0.7-1.6 [facility]2022-07-21 05:01:00 Test Item Value Reference Range Interpretation Comments eGFR (test code = eGFR) 112 [facility] CenterGakagorHIIPDRHXKY9876-44-59 05:01:00 Test Item Value Reference Range Interpretation Comments WBC (test code = WBC) 6.4 3.7-10.4 [facility] CenterMyxtkprKUTWEEBTTW4823-94-53 05:01:00 Test Item Value Reference Range Interpretation Comments RBC (test code = RBC) 5.28 4.20-5.40 [place] 440272-07-21 05:01:00 Test Item Value Reference Range Interpretation Comments Hgb (test code = Hgb) 14.1 12.0-16.0 [facility] CenterBtogqgmSUAFVPKOKG9680-17-47 05:01:00 Test Item Value Reference Range Interpretation Comments Hct (test code = Hct) 43.0 36.0-48.0 [facility] CenterBbcwmroPEELNHNYFP9057-81-64 05:01:00 Test Item Value Reference Range Interpretation Comments MCV (test code = MCV) 81.4 80.0-98.0 [facility] CenterDznmiteCIZBVWYKIF9147-82-29 05:01:00 Test Item Value Reference Range Interpretation Comments MCH (test code = MCH) 26.7 pg 27.0-31.0 [facility] CenterBodouxtVQYROPYZFD3879-60-70 05:01:00 Test Item Value Reference Range Interpretation Comments MCHC (test code = MCHC) 32.9 32.0-36.0 [facility] CenterJweifftNDXIDDTZXA7386-64-86 05:01:00 Test Item Value Reference Range Interpretation Comments RDW (test code = RDW) 14.1 11.5-14.5 [facility] CenterWcdviqeNRWYISFSOX2429-37-21 05:01:00 Test Item Value Reference Range Interpretation Comments Platelet (test code = Platelet) 237 133-450 [facility] CenterGuvgoaoBMTURYEFQU8543-78-15 05:01:00 Test Item Value Reference Range Interpretation Comments MPV (test code = MPV) 9.1 7.4-10.4 [facility] CenterBmibnceJRJPSFFUEQ8884-99-38 05:01:00 Test Item Value Reference Range Interpretation Comments PT (test code = PT) 12.4 s 12.0-14.7 [facility] CenterQgkzikzZUOTKJCDCI6447-28-49 05:01:00 Test Item Value Reference Range Interpretation Comments INR (test code = INR) 0.93 1 0.85-1.17 [place] 440272-07-21 05:01:00 Test Item Value Reference Range Interpretation Comments PTT (test code = PTT) 26.5 s 22.9-35.8 [place] 440272-07-21 05:01:00 Test Item Value Reference Range Interpretation Comments Segs (test code = Segs) 40.0 45.0-75.0 [place] 440272-07-21 05:01:00 Test Item Value Reference Range Interpretation Comments Lymphocytes (test code = Lymphocytes) 49.7 20.0-40.0 [place] 440272-07-21 05:01:00 Test Item Value Reference Range Interpretation Comments Monocytes (test code = Monocytes) 8.5 2.0-12.0 [place] 440272-07-21 05:01:00 Test Item Value Reference Range Interpretation Comments Eosinophils (test code = 1.0 See_Comment [A utomated message] The Eosinophils) system which ge nerated this result tra nsmitted reference range : <=4.0. The reference r kat was not used to int erpret this result as normal/abnormal . [facility] CenterLcgisdzCRQJUHCIRA7922-05-51 05:01:00 Test Item Value Reference Range Interpretation Comments Basophils (test code = 0.8 See_Comment [Aut omated message] The Basophils) system which ge nerated this result tra nsmitted reference range : <=1.0. The reference r kat was not used to int erpret this result as normal/abnormal . [facility] CenterJthugyrBYIAAFONXY3751-24-24 05:01:00 Test Item Value Reference Range Interpretation Comments Neutrophils # (test code = Neutrophils 2.5 1.5-8.1 #) [place] 440272-07-21 05:01:00 Test Item Value Reference Range Interpretation Comments Lymphocytes # (test code = Lymphocytes 3.2 1.0-5.5 #) [place] 440272-07-21 05:01:00 Test Item Value Reference Range Interpretation Comments Monocytes # (test code 0.5 See_Comment [Aut omated message] The = Monocytes #) system which generated this result tra nsmitted reference range : <=0.8. The reference r kat was not used to int erpret this result as normal/abnormal . [facility] HospitalRgwoozdTTRBHMVZTM5301-60-69 05:01:00 Test Item Value Reference Range Interpretation Comments Eosinophils # (test code 0.1 See_Comment [A utomated message] The = Eosinophils #) system Reasultic h generated this result tra nsmitted reference range : <=0.5. The reference r kat was not used to int erpret this result as normal/abnormal . [facility] HospitalCARD[facility]AC [id number] 05:01:00 Test Item Value Reference Range Interpretation Comments HS Troponin I (test code = HS Troponin 5 I) [facility] [id number] 05:01:00 Test Item Value Reference Range Interpretation Comments Glucose Lvl (test code = Glucose Lvl) 96 70-99 [facility]2022-07-21 05:01:00 Test Item Value Reference Range Interpretation Comments BUN (test code = BUN) 16 7-22 [facility]2022-07-21 05:01:00 Test Item Value Reference Range Interpretation Comments Creatinine Lvl (test code = Creatinine 0.73 0.50-1.40 Lvl) [facility]2022-07-21 05:01:00 Test Item Value Reference Range Interpretation Comments Sodium Lvl (test code = Sodium Lvl) 141 135-145 [facility] [id number] 05:01:00 Test Item Value Reference Range Interpretation Comments Potassium Lvl (test code = Potassium 3.6 3.5-5.1 Lvl) [facility] UptownInterpretOmicsCAROMONT [id number] 05:01:00 Test Item Value Reference Range Interpretation Comments Chloride Lvl (test code = Chloride Lvl) 110 95-109 [facility] [id number] 05:01:00 Test Item Value Reference Range Interpretation Comments CO2 (test code = CO2) 25 24-32 [facility] [id number] 05:01:00 Test Item Value Reference Range Interpretation Comments Calcium Lvl (test code = Calcium Lvl) 9.3 8.5-10.5 [facility]2022-07-21 05:01:00 Test Item Value Reference Range Interpretation Comments Total Protein (test code = Total 7.2 6.4-8.4 Protein) [place] 656902-07-21 05:01:00 Test Item Value Reference Range Interpretation Comments Albumin Lvl (test code = Albumin Lvl) 3.7 3.5-5.0 [place] 656902-07-21 05:01:00 Test Item Value Reference Range Interpretation Comments ALT (test code = ALT) 59 See_Comment [Auto mated message] The system which ge nerated this result transmit arvind reference range : <=65. The reference range was not used to interpr et this result as mario l/abnormal. [facility]2022-07-21 05:01:00 Test Item Value Reference Range Interpretation Comments AST (test code = AST) 24 See_Comment [Auto mated message] The system which ge nerated this result transmit arvind reference range : <=37. The reference range was not used to interpr et this result as mario l/abnormal. [place] 656902-07-21 05:01:00 Test Item Value Reference Range Interpretation Comments Alk Phos (test code = Alk Phos) 60 39-136 [facility]2022-07-21 05:01:00 Test Item Value Reference Range Interpretation Comments Bili Total (test code = Bili Total) 0.2 0.2-1.3 [facility]2022-07-21 05:01:00 Test Item Value Reference Range Interpretation Comments AGAP (test code = AGAP) 9.6 10.0-20.0 [place] 656902-07-21 05:01:00 Test Item Value Reference Range Interpretation Comments B/C Ratio (test code = B/C Ratio) 22 1 6-25 [place] 656902-07-21 05:01:00 Test Item Value Reference Range Interpretation Comments Globulin (test code = Globulin) 3.5 2.7-4.2 [place] 656902-07-21 05:01:00 Test Item Value Reference Range Interpretation Comments A/G Ratio (test code = A/G Ratio) 1.1 1 0.7-1.6 [place] 656902-07-21 05:01:00 Test Item Value Reference Range Interpretation Comments eGFR (test code = eGFR) 112 [facility] CenterIjwsiyuLUZZWFLHUQ4403-34-28 05:01:00 Test Item Value Reference Range Interpretation Comments WBC (test code = WBC) 6.4 3.7-10.4 [facility] CenterDbiznmcRIBEARFUMX8902-05-59 05:01:00 Test Item Value Reference Range Interpretation Comments RBC (test code = RBC) 5.28 4.20-5.40 [facility] CenterUxceqezXDLPFQNPOZ1748-89-44 05:01:00 Test Item Value Reference Range Interpretation Comments Hgb (test code = Hgb) 14.1 12.0-16.0 [facility] CenterJuklamfRYURLJILJI1302-46-08 05:01:00 Test Item Value Reference Range Interpretation Comments Hct (test code = Hct) 43.0 36.0-48.0 [facility] CenterAjbfxjcLNXZOIOISL9796-01-49 05:01:00 Test Item Value Reference Range Interpretation Comments MCV (test code = MCV) 81.4 80.0-98.0 [facility] CenterSkuduimEUJIRKIITL1238-19-63 05:01:00 Test Item Value Reference Range Interpretation Comments MCH (test code = MCH) 26.7 pg 27.0-31.0 [facility] CenterLaikpuqWJHRNIAFZP4818-33-86 05:01:00 Test Item Value Reference Range Interpretation Comments MCHC (test code = MCHC) 32.9 32.0-36.0 [facility] CenterDlxsbqbPMVBTSIMLW8979-83-24 05:01:00 Test Item Value Reference Range Interpretation Comments RDW (test code = RDW) 14.1 11.5-14.5 [facility] CenterGlwipekHGIVVXJKZY7502-69-70 05:01:00 Test Item Value Reference Range Interpretation Comments Platelet (test code = Platelet) 237 133-450 [facility] CenterXpcaycySOLWKCLOSY8313-78-88 05:01:00 Test Item Value Reference Range Interpretation Comments MPV (test code = MPV) 9.1 7.4-10.4 [facility] CenterReuvvulRAGCHFBSGP7183-23-81 05:01:00 Test Item Value Reference Range Interpretation Comments PT (test code = PT) 12.4 s 12.0-14.7 [facility] CenterIhpzjavTZULYQUWTI8558-55-85 05:01:00 Test Item Value Reference Range Interpretation Comments INR (test code = INR) 0.93 1 0.85-1.17 [facility] CenterGyiqkgvKMZGTOPCJN3109-25-71 05:01:00 Test Item Value Reference Range Interpretation Comments PTT (test code = PTT) 26.5 s 22.9-35.8 [place] 440272-07-21 05:01:00 Test Item Value Reference Range Interpretation Comments Segs (test code = Segs) 40.0 45.0-75.0 [place] 440272-07-21 05:01:00 Test Item Value Reference Range Interpretation Comments Lymphocytes (test code = Lymphocytes) 49.7 20.0-40.0 [place] 440272-07-21 05:01:00 Test Item Value Reference Range Interpretation Comments Monocytes (test code = Monocytes) 8.5 2.0-12.0 [place] 440272-07-21 05:01:00 Test Item Value Reference Range Interpretation Comments Eosinophils (test code = 1.0 See_Comment [A utomated message] The Eosinophils) system which ge nerated this result tra nsmitted reference range : <=4.0. The reference r kat was not used to int erpret this result as normal/abnormal . [facility] CenterUdrbwphCZBVROHPYG8133-38-59 05:01:00 Test Item Value Reference Range Interpretation Comments Basophils (test code = 0.8 See_Comment [Aut omated message] The Basophils) system which ge nerated this result tra nsmitted reference range : <=1.0. The reference r kat was not used to int erpret this result as normal/abnormal . [facility] CenterBrrdjcoOFGHESKEXS9487-60-45 05:01:00 Test Item Value Reference Range Interpretation Comments Neutrophils # (test code = Neutrophils 2.5 1.5-8.1 #) [facility] CenterJacvioxATIUEOUMXC1149-16-43 05:01:00 Test Item Value Reference Range Interpretation Comments Lymphocytes # (test code = Lymphocytes 3.2 1.0-5.5 #) [place] 440272-07-21 05:01:00 Test Item Value Reference Range Interpretation Comments Monocytes # (test code 0.5 See_Comment [Aut omated message] The = Monocytes #) system which generated this result tra nsmitted reference range : <=0.8. The reference r kat was not used to int erpret this result as normal/abnormal . [place] 440272-07-21 05:01:00 Test Item Value Reference Range Interpretation Comments Eosinophils # (test code 0.1 See_Comment [A utomated message] The = Eosinophils #) system whic h generated this result tra nsmitted reference range : <=0.5. The reference r kat was not used to int erpret this result as normal/abnormal . [facility] [id number] 05:01:00 Test Item Value Reference Range Interpretation Comments HS Troponin I (test code = HS Troponin 5 I) [facility] [id number] 05:01:00 Test Item Value Reference Range Interpretation Comments Glucose Lvl (test code = Glucose Lvl) 96 70-99 [facility]2022-07-21 05:01:00 Test Item Value Reference Range Interpretation Comments BUN (test code = BUN) 16 7-22 [facility]2022-07-21 05:01:00 Test Item Value Reference Range Interpretation Comments Creatinine Lvl (test code = Creatinine 0.73 0.50-1.40 Lvl) [facility]2022-07-21 05:01:00 Test Item Value Reference Range Interpretation Comments Sodium Lvl (test code = Sodium Lvl) 141 135-145 [facility]2022-07-21 05:01:00 Test Item Value Reference Range Interpretation Comments Potassium Lvl (test code = Potassium 3.6 3.5-5.1 Lvl) [facility]2022-07-21 05:01:00 Test Item Value Reference Range Interpretation Comments Chloride Lvl (test code = Chloride Lvl) 110 95-109 [facility]2022-07-21 05:01:00 Test Item Value Reference Range Interpretation Comments CO2 (test code = CO2) 25 24-32 [facility]2022-07-21 05:01:00 Test Item Value Reference Range Interpretation Comments Calcium Lvl (test code = Calcium Lvl) 9.3 8.5-10.5 [facility]2022-07-21 05:01:00 Test Item Value Reference Range Interpretation Comments Total Protein (test code = Total 7.2 6.4-8.4 Protein) [facility]2022-07-21 05:01:00 Test Item Value Reference Range Interpretation Comments Albumin Lvl (test code = Albumin Lvl) 3.7 3.5-5.0 [facility]2022-07-21 05:01:00 Test Item Value Reference Range Interpretation Comments ALT (test code = ALT) 59 See_Comment [Auto mated message] The system which ge nerated this result transmit arvind reference range : <=65. The reference range was not used to interpr et this result as mario l/abnormal. [facility] [id number] 05:01:00 Test Item Value Reference Range Interpretation Comments AST (test code = AST) 24 See_Comment [Auto mated message] The system which ge nerated this result transmit arvind reference range : <=37. The reference range was not used to interpr et this result as mario l/abnormal. [facility] [id number] 05:01:00 Test Item Value Reference Range Interpretation Comments Alk Phos (test code = Alk Phos) 60 39-136 [facility] [id number] 05:01:00 Test Item Value Reference Range Interpretation Comments Bili Total (test code = Bili Total) 0.2 0.2-1.3 [facility]Bi[facility] [id number] 05:01:00 Test Item Value Reference Range Interpretation Comments AGAP (test code = AGAP) 9.6 10.0-20.0 [facility]Bi[facility] [id number] 05:01:00 Test Item Value Reference Range Interpretation Comments B/C Ratio (test code = B/C Ratio) 22 1 6-25 [facility] [id number] 05:01:00 Test Item Value Reference Range Interpretation Comments Globulin (test code = Globulin) 3.5 2.7-4.2 [facility] [id number] 05:01:00 Test Item Value Reference Range Interpretation Comments A/G Ratio (test code = A/G Ratio) 1.1 1 0.7-1.6 [facility] [id number] 05:01:00 Test Item Value Reference Range Interpretation Comments eGFR (test code = eGFR) 112 [place] 440272-07-21 05:01:00 Test Item Value Reference Range Interpretation Comments WBC (test code = WBC) 6.4 3.7-10.4 [place] 440272-07-21 05:01:00 Test Item Value Reference Range Interpretation Comments RBC (test code = RBC) 5.28 4.20-5.40 [place] 440272-07-21 05:01:00 Test Item Value Reference Range Interpretation Comments Hgb (test code = Hgb) 14.1 12.0-16.0 [facility] CenterByjnicqVKARNZGMOT8253-88-73 05:01:00 Test Item Value Reference Range Interpretation Comments Hct (test code = Hct) 43.0 36.0-48.0 [facility] CenterWtmhordRBTAAPGZTK0347-63-57 05:01:00 Test Item Value Reference Range Interpretation Comments MCV (test code = MCV) 81.4 80.0-98.0 [facility] CenterSujhodaAVVFCTLWIE0235-17-53 05:01:00 Test Item Value Reference Range Interpretation Comments MCH (test code = MCH) 26.7 pg 27.0-31.0 [facility] CenterCtbghrlABMYLJPDPA6765-50-12 05:01:00 Test Item Value Reference Range Interpretation Comments MCHC (test code = MCHC) 32.9 32.0-36.0 [facility] CenterWliecgpKOYXPEWFNH0358-37-84 05:01:00 Test Item Value Reference Range Interpretation Comments RDW (test code = RDW) 14.1 11.5-14.5 [facility] CenterLnpxqcgDUJWQZWYAT4227-40-08 05:01:00 Test Item Value Reference Range Interpretation Comments Platelet (test code = Platelet) 237 133-450 [facility] CenterSiqyiycLIGNUGLHMY4089-98-92 05:01:00 Test Item Value Reference Range Interpretation Comments MPV (test code = MPV) 9.1 7.4-10.4 [facility] CenterFwfxtzmELYHFTRFVL0227-28-09 05:01:00 Test Item Value Reference Range Interpretation Comments PT (test code = PT) 12.4 s 12.0-14.7 [facility] CenterXouzpgtFEZJIBYOZY5305-86-51 05:01:00 Test Item Value Reference Range Interpretation Comments INR (test code = INR) 0.93 1 0.85-1.17 [facility] CenterSsolxvjCCUSOYRERO8417-22-92 05:01:00 Test Item Value Reference Range Interpretation Comments PTT (test code = PTT) 26.5 s 22.9-35.8 [facility] CenterGyymyidHZJGEGMZHJ3983-30-06 05:01:00 Test Item Value Reference Range Interpretation Comments Segs (test code = Segs) 40.0 45.0-75.0 [facility] CenterXcuycqaZYFIDLGTIJ7875-89-20 05:01:00 Test Item Value Reference Range Interpretation Comments Lymphocytes (test code = Lymphocytes) 49.7 20.0-40.0 [facility]WlhawacJIMAOZMBNK4796-90-08 05:01:00 Test Item Value Reference Range Interpretation Comments Monocytes (test code = Monocytes) 8.5 2.0-12.0 [facility] CenterUnprbiqUSFHCGJHPI7132-91-04 05:01:00 Test Item Value Reference Range Interpretation Comments Eosinophils (test code = 1.0 See_Comment [A utomated message] The Eosinophils) system which ge nerated this result tra nsmitted reference range : <=4.0. The reference r kat was not used to int erpret this result as normal/abnormal . [facility] CenterIkiuxynSSODPLVGQV8937-28-20 05:01:00 Test Item Value Reference Range Interpretation Comments Basophils (test code = 0.8 See_Comment [Aut omated message] The Basophils) system which ge nerated this result tra nsmitted reference range : <=1.0. The reference r kat was not used to int erpret this result as normal/abnormal . [facility] CenterDvkgqfjDKRTJCYFVR9646-41-83 05:01:00 Test Item Value Reference Range Interpretation Comments Neutrophils # (test code = Neutrophils 2.5 1.5-8.1 #) [facility] CenterEdzzudlVIKNEMETLP0443-62-48 05:01:00 Test Item Value Reference Range Interpretation Comments Lymphocytes # (test code = Lymphocytes 3.2 1.0-5.5 #) [facility] CenterBsyyelpQROFLQSETE7884-06-96 05:01:00 Test Item Value Reference Range Interpretation Comments Monocytes # (test code 0.5 See_Comment [Aut omated message] The = Monocytes #) system which generated this result tra nsmitted reference range : <=0.8. The reference r kat was not used to int erpret this result as normal/abnormal . [facility] CenterOxxwjrtPOVYDITKAE1266-65-27 05:01:00 Test Item Value Reference Range Interpretation Comments Eosinophils # (test code 0.1 See_Comment [A utomated message] The = Eosinophils #) system whic h generated this result tra nsmitted reference range : <=0.5. The reference r kat was not used to int erpret this result as normal/abnormal . [facility]CARD[facility] LVFASPJ7853-95-74 05:01:00 Test Item Value Reference Range Interpretation Comments HS Troponin I (test code = HS Troponin 5 I) [place] 656902-07-21 05:01:00 Test Item Value Reference Range Interpretation Comments Glucose Lvl (test code = Glucose Lvl) 96 70-99 [place] 656902-07-21 05:01:00 Test Item Value Reference Range Interpretation Comments BUN (test code = BUN) 16 7-22 [place] 656902-07-21 05:01:00 Test Item Value Reference Range Interpretation Comments Creatinine Lvl (test code = Creatinine 0.73 0.50-1.40 Lvl) [facility]2022-07-21 05:01:00 Test Item Value Reference Range Interpretation Comments Sodium Lvl (test code = Sodium Lvl) 141 135-145 [place] 656902-07-21 05:01:00 Test Item Value Reference Range Interpretation Comments Potassium Lvl (test code = Potassium 3.6 3.5-5.1 Lvl) [place] 656902-07-21 05:01:00 Test Item Value Reference Range Interpretation Comments Chloride Lvl (test code = Chloride Lvl) 110 95-109 [place] 656902-07-21 05:01:00 Test Item Value Reference Range Interpretation Comments CO2 (test code = CO2) 25 24-32 [place] 656902-07-21 05:01:00 Test Item Value Reference Range Interpretation Comments Calcium Lvl (test code = Calcium Lvl) 9.3 8.5-10.5 [place] 656902-07-21 05:01:00 Test Item Value Reference Range Interpretation Comments Total Protein (test code = Total 7.2 6.4-8.4 Protein) [place] 656902-07-21 05:01:00 Test Item Value Reference Range Interpretation Comments Albumin Lvl (test code = Albumin Lvl) 3.7 3.5-5.0 [place] 656902-07-21 05:01:00 Test Item Value Reference Range Interpretation Comments ALT (test code = ALT) 59 See_Comment [Auto mated message] The system which ge nerated this result transmit arvind reference range : <=65. The reference range was not used to interpr et this result as mario l/abnormal. [place] 656902-07-21 05:01:00 Test Item Value Reference Range Interpretation Comments AST (test code = AST) 24 See_Comment [Auto mated message] The system which ge nerated this result transmit arvind reference range : <=37. The reference range was not used to interpr et this result as mario l/abnormal. [facility]2022-07-21 05:01:00 Test Item Value Reference Range Interpretation Comments Alk Phos (test code = Alk Phos) 60 39-136 [facility]2022-07-21 05:01:00 Test Item Value Reference Range Interpretation Comments Bili Total (test code = Bili Total) 0.2 0.2-1.3 [facility]2022-07-21 05:01:00 Test Item Value Reference Range Interpretation Comments AGAP (test code = AGAP) 9.6 10.0-20.0 [facility]2022-07-21 05:01:00 Test Item Value Reference Range Interpretation Comments B/C Ratio (test code = B/C Ratio) 22 1 6-25 [place] 656902-07-21 05:01:00 Test Item Value Reference Range Interpretation Comments Globulin (test code = Globulin) 3.5 2.7-4.2 [facility]2022-07-21 05:01:00 Test Item Value Reference Range Interpretation Comments A/G Ratio (test code = A/G Ratio) 1.1 1 0.7-1.6 [place] 656902-07-21 05:01:00 Test Item Value Reference Range Interpretation Comments eGFR (test code = eGFR) 112 [facility] CenterFqnmcrxGBTYMGNRWY2887-82-46 05:01:00 Test Item Value Reference Range Interpretation Comments WBC (test code = WBC) 6.4 3.7-10.4 [place] 440272-07-21 05:01:00 Test Item Value Reference Range Interpretation Comments RBC (test code = RBC) 5.28 4.20-5.40 [place] 440272-07-21 05:01:00 Test Item Value Reference Range Interpretation Comments Hgb (test code = Hgb) 14.1 12.0-16.0 [place] 440272-07-21 05:01:00 Test Item Value Reference Range Interpretation Comments Hct (test code = Hct) 43.0 36.0-48.0 [place] 440272-07-21 05:01:00 Test Item Value Reference Range Interpretation Comments MCV (test code = MCV) 81.4 80.0-98.0 [facility] CenterJwusmtoPURJMRDYAC5356-87-75 05:01:00 Test Item Value Reference Range Interpretation Comments MCH (test code = MCH) 26.7 pg 27.0-31.0 [facility] CenterFzhxqugEVIUSSJKZX8718-05-90 05:01:00 Test Item Value Reference Range Interpretation Comments MCHC (test code = MCHC) 32.9 32.0-36.0 [facility] CenterBpifnhvXKALHPICIA3811-50-70 05:01:00 Test Item Value Reference Range Interpretation Comments RDW (test code = RDW) 14.1 11.5-14.5 [facility] CenterGloqjtwUJKWLCAHZU2458-39-26 05:01:00 Test Item Value Reference Range Interpretation Comments Platelet (test code = Platelet) 237 133-450 [facility] CenterDtoggbtWSFNMXYTKL9401-33-53 05:01:00 Test Item Value Reference Range Interpretation Comments MPV (test code = MPV) 9.1 7.4-10.4 [facility] CenterKnvinidPMHYRIOPVO9111-57-71 05:01:00 Test Item Value Reference Range Interpretation Comments PT (test code = PT) 12.4 s 12.0-14.7 [facility] CenterOathmflYJZAQAVDDY9253-09-53 05:01:00 Test Item Value Reference Range Interpretation Comments INR (test code = INR) 0.93 1 0.85-1.17 [facility] CenterVrjdmkfFOPUASPMNM9043-01-12 05:01:00 Test Item Value Reference Range Interpretation Comments PTT (test code = PTT) 26.5 s 22.9-35.8 [facility] CenterMwwsczzKYPNQZZTVG6314-42-07 05:01:00 Test Item Value Reference Range Interpretation Comments Segs (test code = Segs) 40.0 45.0-75.0 [place] 440272-07-21 05:01:00 Test Item Value Reference Range Interpretation Comments Lymphocytes (test code = Lymphocytes) 49.7 20.0-40.0 [place] 440272-07-21 05:01:00 Test Item Value Reference Range Interpretation Comments Monocytes (test code = Monocytes) 8.5 2.0-12.0 [place] 440272-07-21 05:01:00 Test Item Value Reference Range Interpretation Comments Eosinophils (test code = 1.0 See_Comment [A utomated message] The Eosinophils) system which ge nerated this result tra nsmitted reference range : <=4.0. The reference r kat was not used to int erpret this result as normal/abnormal . [facility] CenterAtvgamtRWAWNNDNKP6774-07-37 05:01:00 Test Item Value Reference Range Interpretation Comments Basophils (test code = 0.8 See_Comment [Aut omated message] The Basophils) system which ge nerated this result tra nsmitted reference range : <=1.0. The reference r kat was not used to int erpret this result as normal/abnormal . [facility] CenterRkcxmxmPPJBLPLSHS2918-34-99 05:01:00 Test Item Value Reference Range Interpretation Comments Neutrophils # (test code = Neutrophils 2.5 1.5-8.1 #) [facility] CenterQhrvtarHWEZTILUDD1782-34-50 05:01:00 Test Item Value Reference Range Interpretation Comments Lymphocytes # (test code = Lymphocytes 3.2 1.0-5.5 #) [facility] CenterZiwqlfxJJOUQTUAZW9067-76-51 05:01:00 Test Item Value Reference Range Interpretation Comments Monocytes # (test code 0.5 See_Comment [Aut omated message] The = Monocytes #) system which generated this result tra nsmitted reference range : <=0.8. The reference r kat was not used to int erpret this result as normal/abnormal . [facility] CenterLeitsxhZLKZJQZLVP5829-77-27 05:01:00 Test Item Value Reference Range Interpretation Comments Eosinophils # (test code 0.1 See_Comment [A utomated message] The = Eosinophils #) system whic h generated this result tra nsmitted reference range : <=0.5. The reference r kat was not used to int erpret this result as normal/abnormal . [facility] YEWNNKQ0158-47-49 05:01:00 Test Item Value Reference Range Interpretation Comments HS Troponin I (test code = HS Troponin 5 I) [facility] [id number] 05:01:00 Test Item Value Reference Range Interpretation Comments Glucose Lvl (test code = Glucose Lvl) 96 70-99 [facility] RYXZZ9651-46-90 05:01:00 Test Item Value Reference Range Interpretation Comments BUN (test code = BUN) 16 7-22 [place] 656902-07-21 05:01:00 Test Item Value Reference Range Interpretation Comments Creatinine Lvl (test code = Creatinine 0.73 0.50-1.40 Lvl) [place] 656902-07-21 05:01:00 Test Item Value Reference Range Interpretation Comments Sodium Lvl (test code = Sodium Lvl) 141 135-145 [place] 656902-07-21 05:01:00 Test Item Value Reference Range Interpretation Comments Potassium Lvl (test code = Potassium 3.6 3.5-5.1 Lvl) [place] 656902-07-21 05:01:00 Test Item Value Reference Range Interpretation Comments Chloride Lvl (test code = Chloride Lvl) 110 95-109 [place] 656902-07-21 05:01:00 Test Item Value Reference Range Interpretation Comments CO2 (test code = CO2) 25 24-32 [place] 656902-07-21 05:01:00 Test Item Value Reference Range Interpretation Comments Calcium Lvl (test code = Calcium Lvl) 9.3 8.5-10.5 [place] 656902-07-21 05:01:00 Test Item Value Reference Range Interpretation Comments Total Protein (test code = Total 7.2 6.4-8.4 Protein) [place] 656902-07-21 05:01:00 Test Item Value Reference Range Interpretation Comments Albumin Lvl (test code = Albumin Lvl) 3.7 3.5-5.0 [place] 656902-07-21 05:01:00 Test Item Value Reference Range Interpretation Comments ALT (test code = ALT) 59 See_Comment [Auto mated message] The system which ge nerated this result transmit arvind reference range : <=65. The reference range was not used to interpr et this result as mario l/abnormal. [place] 656902-07-21 05:01:00 Test Item Value Reference Range Interpretation Comments AST (test code = AST) 24 See_Comment [Auto mated message] The system which ge nerated this result transmit arvind reference range : <=37. The reference range was not used to interpr et this result as mario l/abnormal. [place] 656902-07-21 05:01:00 Test Item Value Reference Range Interpretation Comments Alk Phos (test code = Alk Phos) 60 39-136 [facility]2022-07-21 05:01:00 Test Item Value Reference Range Interpretation Comments Bili Total (test code = Bili Total) 0.2 0.2-1.3 [facility]2022-07-21 05:01:00 Test Item Value Reference Range Interpretation Comments AGAP (test code = AGAP) 9.6 10.0-20.0 [facility]2022-07-21 05:01:00 Test Item Value Reference Range Interpretation Comments B/C Ratio (test code = B/C Ratio) 22 1 6-25 [facility]2022-07-21 05:01:00 Test Item Value Reference Range Interpretation Comments Globulin (test code = Globulin) 3.5 2.7-4.2 [place] 656902-07-21 05:01:00 Test Item Value Reference Range Interpretation Comments A/G Ratio (test code = A/G Ratio) 1.1 1 0.7-1.6 [facility]2022-07-21 05:01:00 Test Item Value Reference Range Interpretation Comments eGFR (test code = eGFR) 112 [facility] CenterQvdasfhGCQLFHFGNV6670-45-17 05:01:00 Test Item Value Reference Range Interpretation Comments WBC (test code = WBC) 6.4 3.7-10.4 [facility] CenterXhnektvOZPNOMHDTH9601-67-09 05:01:00 Test Item Value Reference Range Interpretation Comments RBC (test code = RBC) 5.28 4.20-5.40 [place] 440272-07-21 05:01:00 Test Item Value Reference Range Interpretation Comments Hgb (test code = Hgb) 14.1 12.0-16.0 [place] 440272-07-21 05:01:00 Test Item Value Reference Range Interpretation Comments Hct (test code = Hct) 43.0 36.0-48.0 [place] 440272-07-21 05:01:00 Test Item Value Reference Range Interpretation Comments MCV (test code = MCV) 81.4 80.0-98.0 [place] 440272-07-21 05:01:00 Test Item Value Reference Range Interpretation Comments MCH (test code = MCH) 26.7 pg 27.0-31.0 [facility] CenterSnearncFSHMNMPKUO1582-20-92 05:01:00 Test Item Value Reference Range Interpretation Comments MCHC (test code = MCHC) 32.9 32.0-36.0 [facility] CenterGsuzrluBJZEGLSSNN9497-78-58 05:01:00 Test Item Value Reference Range Interpretation Comments RDW (test code = RDW) 14.1 11.5-14.5 [place] 440272-07-21 05:01:00 Test Item Value Reference Range Interpretation Comments Platelet (test code = Platelet) 237 133-450 [facility] CenterOcbdbebJAWSQWNXTK2322-09-97 05:01:00 Test Item Value Reference Range Interpretation Comments MPV (test code = MPV) 9.1 7.4-10.4 [place] 440272-07-21 05:01:00 Test Item Value Reference Range Interpretation Comments PT (test code = PT) 12.4 s 12.0-14.7 [place] 440272-07-21 05:01:00 Test Item Value Reference Range Interpretation Comments INR (test code = INR) 0.93 1 0.85-1.17 [facility] CenterPvlwrttRKCKONVLUN8889-44-82 05:01:00 Test Item Value Reference Range Interpretation Comments PTT (test code = PTT) 26.5 s 22.9-35.8 [place] 440272-07-21 05:01:00 Test Item Value Reference Range Interpretation Comments Segs (test code = Segs) 40.0 45.0-75.0 [facility] CenterAmabuozDXCPTJUZVL1482-77-99 05:01:00 Test Item Value Reference Range Interpretation Comments Lymphocytes (test code = Lymphocytes) 49.7 20.0-40.0 [place] 440272-07-21 05:01:00 Test Item Value Reference Range Interpretation Comments Monocytes (test code = Monocytes) 8.5 2.0-12.0 [place] 440272-07-21 05:01:00 Test Item Value Reference Range Interpretation Comments Eosinophils (test code = 1.0 See_Comment [A utomated message] The Eosinophils) system which ge nerated this result tra nsmitted reference range : <=4.0. The reference r kat was not used to int erpret this result as normal/abnormal . [facility] CenterIclbfcnBHKDVVQIDS1929-99-10 05:01:00 Test Item Value Reference Range Interpretation Comments Basophils (test code = 0.8 See_Comment [Aut omated message] The Basophils) system which ge nerated this result tra nsmitted reference range : <=1.0. The reference r kat was not used to int erpret this result as normal/abnormal . [facility] CenterVviqefqCHQYMMRQDT1790-49-98 05:01:00 Test Item Value Reference Range Interpretation Comments Neutrophils # (test code = Neutrophils 2.5 1.5-8.1 #) [facility]PggjjpdTIMVCKJBYF4162-55-87 05:01:00 Test Item Value Reference Range Interpretation Comments Lymphocytes # (test code = Lymphocytes 3.2 1.0-5.5 #) [facility] CenterSaswkizLPOJIVRGDF3426-66-80 05:01:00 Test Item Value Reference Range Interpretation Comments Monocytes # (test code 0.5 See_Comment [Aut omated message] The = Monocytes #) system which generated this result tra nsmitted reference range : <=0.8. The reference r kat was not used to int erpret this result as normal/abnormal . [facility] CenterIwqhogmBYOZYELCSU9064-68-51 05:01:00 Test Item Value Reference Range Interpretation Comments Eosinophils # (test code 0.1 See_Comment [A utomated message] The = Eosinophils #) system whic h generated this result tra nsmitted reference range : <=0.5. The reference r kat was not used to int erpret this result as normal/abnormal . [facility] QRJECEX6256-16-70 05:01:00 Test Item Value Reference Range Interpretation Comments HS Troponin I (test code = HS Troponin 5 I) [facility] [id number] 05:01:00 Test Item Value Reference Range Interpretation Comments Glucose Lvl (test code = Glucose Lvl) 96 70-99 [facility]2022-07-21 05:01:00 Test Item Value Reference Range Interpretation Comments BUN (test code = BUN) 16 7-22 [facility]2022-07-21 05:01:00 Test Item Value Reference Range Interpretation Comments Creatinine Lvl (test code = Creatinine 0.73 0.50-1.40 Lvl) [facility]2022-07-21 05:01:00 Test Item Value Reference Range Interpretation Comments Sodium Lvl (test code = Sodium Lvl) 141 135-145 [place] 656902-07-21 05:01:00 Test Item Value Reference Range Interpretation Comments Potassium Lvl (test code = Potassium 3.6 3.5-5.1 Lvl) [place] 656902-07-21 05:01:00 Test Item Value Reference Range Interpretation Comments Chloride Lvl (test code = Chloride Lvl) 110 95-109 [place] 656902-07-21 05:01:00 Test Item Value Reference Range Interpretation Comments CO2 (test code = CO2) 25 24-32 [place] 656902-07-21 05:01:00 Test Item Value Reference Range Interpretation Comments Calcium Lvl (test code = Calcium Lvl) 9.3 8.5-10.5 [place] 656902-07-21 05:01:00 Test Item Value Reference Range Interpretation Comments Total Protein (test code = Total 7.2 6.4-8.4 Protein) [place] 656902-07-21 05:01:00 Test Item Value Reference Range Interpretation Comments Albumin Lvl (test code = Albumin Lvl) 3.7 3.5-5.0 [facility]2022-07-21 05:01:00 Test Item Value Reference Range Interpretation Comments ALT (test code = ALT) 59 See_Comment [Auto mated message] The system which ge nerated this result transmit arvind reference range : <=65. The reference range was not used to interpr et this result as mario l/abnormal. [facility]2022-07-21 05:01:00 Test Item Value Reference Range Interpretation Comments AST (test code = AST) 24 See_Comment [Auto mated message] The system which ge nerated this result transmit arvind reference range : <=37. The reference range was not used to interpr et this result as mario l/abnormal. [place] 656902-07-21 05:01:00 Test Item Value Reference Range Interpretation Comments Alk Phos (test code = Alk Phos) 60 39-136 [place] 656902-07-21 05:01:00 Test Item Value Reference Range Interpretation Comments Bili Total (test code = Bili Total) 0.2 0.2-1.3 [place] 656902-07-21 05:01:00 Test Item Value Reference Range Interpretation Comments AGAP (test code = AGAP) 9.6 10.0-20.0 [place] 656902-07-21 05:01:00 Test Item Value Reference Range Interpretation Comments B/C Ratio (test code = B/C Ratio) 22 1 6-25 [place] 656902-07-21 05:01:00 Test Item Value Reference Range Interpretation Comments Globulin (test code = Globulin) 3.5 2.7-4.2 [facility]2022-07-21 05:01:00 Test Item Value Reference Range Interpretation Comments A/G Ratio (test code = A/G Ratio) 1.1 1 0.7-1.6 [place] 656902-07-21 05:01:00 Test Item Value Reference Range Interpretation Comments eGFR (test code = eGFR) 112 [facility] CenterYzqvvilTHYMOROYOT1647-87-44 05:01:00 Test Item Value Reference Range Interpretation Comments WBC (test code = WBC) 6.4 3.7-10.4 [place] 440272-07-21 05:01:00 Test Item Value Reference Range Interpretation Comments RBC (test code = RBC) 5.28 4.20-5.40 [place] 440272-07-21 05:01:00 Test Item Value Reference Range Interpretation Comments Hgb (test code = Hgb) 14.1 12.0-16.0 [place] 440272-07-21 05:01:00 Test Item Value Reference Range Interpretation Comments Hct (test code = Hct) 43.0 36.0-48.0 [place] 440272-07-21 05:01:00 Test Item Value Reference Range Interpretation Comments MCV (test code = MCV) 81.4 80.0-98.0 [place] 440272-07-21 05:01:00 Test Item Value Reference Range Interpretation Comments MCH (test code = MCH) 26.7 pg 27.0-31.0 [place] 440272-07-21 05:01:00 Test Item Value Reference Range Interpretation Comments MCHC (test code = MCHC) 32.9 32.0-36.0 [place] 440272-07-21 05:01:00 Test Item Value Reference Range Interpretation Comments RDW (test code = RDW) 14.1 11.5-14.5 [place] 440272-07-21 05:01:00 Test Item Value Reference Range Interpretation Comments Platelet (test code = Platelet) 237 133-450 [place] 440272-07-21 05:01:00 Test Item Value Reference Range Interpretation Comments MPV (test code = MPV) 9.1 7.4-10.4 [place] 440272-07-21 05:01:00 Test Item Value Reference Range Interpretation Comments PT (test code = PT) 12.4 s 12.0-14.7 [place] 440272-07-21 05:01:00 Test Item Value Reference Range Interpretation Comments INR (test code = INR) 0.93 1 0.85-1.17 [place] 440272-07-21 05:01:00 Test Item Value Reference Range Interpretation Comments PTT (test code = PTT) 26.5 s 22.9-35.8 [place] 440272-07-21 05:01:00 Test Item Value Reference Range Interpretation Comments Segs (test code = Segs) 40.0 45.0-75.0 [place] 440272-07-21 05:01:00 Test Item Value Reference Range Interpretation Comments Lymphocytes (test code = Lymphocytes) 49.7 20.0-40.0 [place] 440272-07-21 05:01:00 Test Item Value Reference Range Interpretation Comments Monocytes (test code = Monocytes) 8.5 2.0-12.0 [place] 440272-07-21 05:01:00 Test Item Value Reference Range Interpretation Comments Eosinophils (test code = 1.0 See_Comment [A utomated message] The Eosinophils) system which ge nerated this result tra nsmitted reference range : <=4.0. The reference r kat was not used to int erpret this result as normal/abnormal . [place] 440272-07-21 05:01:00 Test Item Value Reference Range Interpretation Comments Basophils (test code = 0.8 See_Comment [Aut omated message] The Basophils) system which ge nerated this result tra nsmitted reference range : <=1.0. The reference r kat was not used to int erpret this result as normal/abnormal . [facility] CenterGidsysxPSZWQDXWUF5989-37-27 05:01:00 Test Item Value Reference Range Interpretation Comments Neutrophils # (test code = Neutrophils 2.5 1.5-8.1 #) [facility] CenterOpruvyvENYYSATAIY8239-82-30 05:01:00 Test Item Value Reference Range Interpretation Comments Lymphocytes # (test code = Lymphocytes 3.2 1.0-5.5 #) [facility] CenterLihpgbaLKWOTFETTL4954-91-55 05:01:00 Test Item Value Reference Range Interpretation Comments Monocytes # (test code 0.5 See_Comment [Aut omated message] The = Monocytes #) system which generated this result tra nsmitted reference range : <=0.8. The reference r kat was not used to int erpret this result as normal/abnormal . [facility] CenterCcpdhrbRAZXYJMXOG8391-05-10 05:01:00 Test Item Value Reference Range Interpretation Comments Eosinophils # (test code 0.1 See_Comment [A utomated message] The = Eosinophils #) system whic h generated this result tra nsmitted reference range : <=0.5. The reference r kat was not used to int erpret this result as normal/abnormal . [facility] BVYRVMI1303-27-69 05:01:00 Test Item Value Reference Range Interpretation Comments HS Troponin I (test code = HS Troponin [address] I) [facility]2022-07-21 05:01:00 Test Item Value Reference Range Interpretation Comments Glucose Lvl (test code = Glucose Lvl) 96 70-99 [facility]2022-07-21 05:01:00 Test Item Value Reference Range Interpretation Comments BUN (test code = BUN) 16 7-22 [facility]2022-07-21 05:01:00 Test Item Value Reference Range Interpretation Comments Creatinine Lvl (test code = Creatinine 0.73 0.50-1.40 Lvl) [facility]2022-07-21 05:01:00 Test Item Value Reference Range Interpretation Comments Sodium Lvl (test code = Sodium Lvl) 141 135-145 [facility]2022-07-21 05:01:00 Test Item Value Reference Range Interpretation Comments Potassium Lvl (test code = Potassium 3.6 3.5-5.1 Lvl) [facility]2022-07-21 05:01:00 Test Item Value Reference Range Interpretation Comments Chloride Lvl (test code = Chloride Lvl) 110 95-109 [place] 656902-07-21 05:01:00 Test Item Value Reference Range Interpretation Comments CO2 (test code = CO2) 25 24-32 [place] 656902-07-21 05:01:00 Test Item Value Reference Range Interpretation Comments Calcium Lvl (test code = Calcium Lvl) 9.3 8.5-10.5 [place] 656902-07-21 05:01:00 Test Item Value Reference Range Interpretation Comments Total Protein (test code = Total 7.2 6.4-8.4 Protein) [place] 656902-07-21 05:01:00 Test Item Value Reference Range Interpretation Comments Albumin Lvl (test code = Albumin Lvl) 3.7 3.5-5.0 [place] 656902-07-21 05:01:00 Test Item Value Reference Range Interpretation Comments ALT (test code = ALT) 59 See_Comment [Auto mated message] The system which ge nerated this result transmit arvind reference range : <=65. The reference range was not used to interpr et this result as mario l/abnormal. [place] 656902-07-21 05:01:00 Test Item Value Reference Range Interpretation Comments AST (test code = AST) 24 See_Comment [Auto mated message] The system which ge nerated this result transmit arvind reference range : <=37. The reference range was not used to interpr et this result as mario l/abnormal. [facility]2022-07-21 05:01:00 Test Item Value Reference Range Interpretation Comments Alk Phos (test code = Alk Phos) 60 39-136 [place] 656902-07-21 05:01:00 Test Item Value Reference Range Interpretation Comments Bili Total (test code = Bili Total) 0.2 0.2-1.3 [place] 656902-07-21 05:01:00 Test Item Value Reference Range Interpretation Comments AGAP (test code = AGAP) 9.6 10.0-20.0 [place] 656902-07-21 05:01:00 Test Item Value Reference Range Interpretation Comments B/C Ratio (test code = B/C Ratio) 22 1 6-25 [facility]2022-07-21 05:01:00 Test Item Value Reference Range Interpretation Comments Globulin (test code = Globulin) 3.5 2.7-4.2 [facility]2022-07-21 05:01:00 Test Item Value Reference Range Interpretation Comments A/G Ratio (test code = A/G Ratio) 1.1 1 0.7-1.6 [facility]2022-07-21 05:01:00 Test Item Value Reference Range Interpretation Comments eGFR (test code = eGFR) 112 [facility] CenterObbavghMJZNOGENST9729-11-27 05:01:00 Test Item Value Reference Range Interpretation Comments WBC (test code = WBC) 6.4 3.7-10.4 [facility] CenterChfueujGLTFPGBKEO1561-98-86 05:01:00 Test Item Value Reference Range Interpretation Comments RBC (test code = RBC) 5.28 4.20-5.40 [facility] CenterGaigdzoFHPOYDBHTU8219-75-44 05:01:00 Test Item Value Reference Range Interpretation Comments Hgb (test code = Hgb) 14.1 12.0-16.0 [facility] CenterFkoisjqQGGCLHVZXB9321-43-08 05:01:00 Test Item Value Reference Range Interpretation Comments Hct (test code = Hct) 43.0 36.0-48.0 [facility] CenterBezoqcnTIVROGNUAY5456-38-85 05:01:00 Test Item Value Reference Range Interpretation Comments MCV (test code = MCV) 81.4 80.0-98.0 [facility] CenterEolxerfSMRSJUUYWA3872-35-00 05:01:00 Test Item Value Reference Range Interpretation Comments MCH (test code = MCH) 26.7 pg 27.0-31.0 [facility] CenterLunmeteGYJTNKXFXX2169-90-68 05:01:00 Test Item Value Reference Range Interpretation Comments MCHC (test code = MCHC) 32.9 32.0-36.0 [facility] CenterFvbnbqpHCWUJCWDVQ7227-23-05 05:01:00 Test Item Value Reference Range Interpretation Comments RDW (test code = RDW) 14.1 11.5-14.5 [facility] CenterEpcgeunCJACNVJYEV7377-84-89 05:01:00 Test Item Value Reference Range Interpretation Comments Platelet (test code = Platelet) 237 133-450 [facility] CenterGsnxjboRPEWPIISXG4681-37-69 05:01:00 Test Item Value Reference Range Interpretation Comments MPV (test code = MPV) 9.1 7.4-10.4 [facility] CenterDelneacJUGRQALUSF1205-33-56 05:01:00 Test Item Value Reference Range Interpretation Comments PT (test code = PT) 12.4 s 12.0-14.7 [place] 440272-07-21 05:01:00 Test Item Value Reference Range Interpretation Comments INR (test code = INR) 0.93 1 0.85-1.17 [place] 440272-07-21 05:01:00 Test Item Value Reference Range Interpretation Comments PTT (test code = PTT) 26.5 s 22.9-35.8 [place] 440272-07-21 05:01:00 Test Item Value Reference Range Interpretation Comments Segs (test code = Segs) 40.0 45.0-75.0 [place] 440272-07-21 05:01:00 Test Item Value Reference Range Interpretation Comments Lymphocytes (test code = Lymphocytes) 49.7 20.0-40.0 [place] 440272-07-21 05:01:00 Test Item Value Reference Range Interpretation Comments Monocytes (test code = Monocytes) 8.5 2.0-12.0 [facility] CenterRydvxitOMEPPZSQOH6917-42-71 05:01:00 Test Item Value Reference Range Interpretation Comments Eosinophils (test code = 1.0 See_Comment [A utomated message] The Eosinophils) system which ge nerated this result tra nsmitted reference range : <=4.0. The reference r kat was not used to int erpret this result as normal/abnormal . [facility] CenterIymjsxeUXZNANFPFQ0938-45-87 05:01:00 Test Item Value Reference Range Interpretation Comments Basophils (test code = 0.8 See_Comment [Aut omated message] The Basophils) system which ge nerated this result tra nsmitted reference range : <=1.0. The reference r kat was not used to int erpret this result as normal/abnormal . [facility] CenterVxwilvnZECFGXOQVL1010-26-94 05:01:00 Test Item Value Reference Range Interpretation Comments Neutrophils # (test code = Neutrophils 2.5 1.5-8.1 #) [facility] CenterFoxdxtpKYMIHNJUGK2441-90-50 05:01:00 Test Item Value Reference Range Interpretation Comments Lymphocytes # (test code = Lymphocytes 3.2 1.0-5.5 #) [facility]BcopcnpTWTPOZTJMO1112-26-70 05:01:00 Test Item Value Reference Range Interpretation Comments Monocytes # (test code 0.5 See_Comment [Aut omated message] The = Monocytes #) system which generated this result tra nsmitted reference range : <=0.8. The reference r kat was not used to int erpret this result as normal/abnormal . [facility] CenterXgxdhfjHVGYYDQYYF5048-30-68 05:01:00 Test Item Value Reference Range Interpretation Comments Eosinophils # (test code 0.1 See_Comment [A utomated message] The = Eosinophils #) system whic h generated this result tra nsmitted reference range : <=0.5. The reference r kat was not used to int erpret this result as normal/abnormal . [facility]CARD[facility]AC CSNDGHO4572-32-73 05:01:00 Test Item Value Reference Range Interpretation Comments HS Troponin I (test code = HS Troponin [address] I) [facility]2022-07-21 05:01:00 Test Item Value Reference Range Interpretation Comments Glucose Lvl (test code = Glucose Lvl) 96 70-99 [facility] HospitalBiocroí [id number] 05:01:00 Test Item Value Reference Range Interpretation Comments BUN (test code = BUN) 16 7-22 [facility]2022-07-21 05:01:00 Test Item Value Reference Range Interpretation Comments Creatinine Lvl (test code = Creatinine 0.73 0.50-1.40 Lvl) [facility]2022-07-21 05:01:00 Test Item Value Reference Range Interpretation Comments Sodium Lvl (test code = Sodium Lvl) 141 135-145 [facility] [id number] 05:01:00 Test Item Value Reference Range Interpretation Comments Potassium Lvl (test code = Potassium 3.6 3.5-5.1 Lvl) [facility]2022-07-21 05:01:00 Test Item Value Reference Range Interpretation Comments Chloride Lvl (test code = Chloride Lvl) 110 95-109 [facility]2022-07-21 05:01:00 Test Item Value Reference Range Interpretation Comments CO2 (test code = CO2) 25 24-32 [facility] [id number] 05:01:00 Test Item Value Reference Range Interpretation Comments Calcium Lvl (test code = Calcium Lvl) 9.3 8.5-10.5 [facility] [id number] 05:01:00 Test Item Value Reference Range Interpretation Comments Total Protein (test code = Total 7.2 6.4-8.4 Protein) [facility] [id number] 05:01:00 Test Item Value Reference Range Interpretation Comments Albumin Lvl (test code = Albumin Lvl) 3.7 3.5-5.0 [facility] [id number] 05:01:00 Test Item Value Reference Range Interpretation Comments ALT (test code = ALT) 59 See_Comment [Auto mated message] The system which ge nerated this result transmit arvind reference range : <=65. The reference range was not used to interpr et this result as mario l/abnormal. [facility] [id number] 05:01:00 Test Item Value Reference Range Interpretation Comments AST (test code = AST) 24 See_Comment [Auto mated message] The system which ge nerated this result transmit arvind reference range : <=37. The reference range was not used to interpr et this result as mario l/abnormal. [facility] [employer] [id number] 05:01:00 Test Item Value Reference Range Interpretation Comments Alk Phos (test code = Alk Phos) 60 39-136 [facility] [employer] [id number] 05:01:00 Test Item Value Reference Range Interpretation Comments Bili Total (test code = Bili Total) 0.2 0.2-1.3 [facility] [employer] [id number] 05:01:00 Test Item Value Reference Range Interpretation Comments AGAP (test code = AGAP) 9.6 10.0-20.0 [facility] [employer] [id number] 05:01:00 Test Item Value Reference Range Interpretation Comments B/C Ratio (test code = B/C Ratio) 22 1 6-25 [facility] [id number] 05:01:00 Test Item Value Reference Range Interpretation Comments Globulin (test code = Globulin) 3.5 2.7-4.2 [facility] [employer] [id number] 05:01:00 Test Item Value Reference Range Interpretation Comments A/G Ratio (test code = A/G Ratio) 1.1 1 0.7-1.6 [facility]2022-07-21 05:01:00 Test Item Value Reference Range Interpretation Comments eGFR (test code = eGFR) 112 [facility] CenterOngaocpPREJIYQKCN6659-16-52 05:01:00 Test Item Value Reference Range Interpretation Comments WBC (test code = WBC) 6.4 3.7-10.4 [facility] CenterUredrujVOPJCDSJCZ9186-67-50 05:01:00 Test Item Value Reference Range Interpretation Comments RBC (test code = RBC) 5.28 4.20-5.40 [facility] CenterUyifiyxCQJDTEEUSW0017-25-66 05:01:00 Test Item Value Reference Range Interpretation Comments Hgb (test code = Hgb) 14.1 12.0-16.0 [facility] CenterZcgugreFBARCOLKET8992-99-98 05:01:00 Test Item Value Reference Range Interpretation Comments Hct (test code = Hct) 43.0 36.0-48.0 [facility] CenterNmwxxgnSYAPYENONQ8199-99-30 05:01:00 Test Item Value Reference Range Interpretation Comments MCV (test code = MCV) 81.4 80.0-98.0 [facility] CenterNcppcqmSDBUNYAPPF6796-76-18 05:01:00 Test Item Value Reference Range Interpretation Comments MCH (test code = MCH) 26.7 pg 27.0-31.0 [facility] CenterVmnucwdYTSYDZKTCY6936-97-84 05:01:00 Test Item Value Reference Range Interpretation Comments MCHC (test code = MCHC) 32.9 32.0-36.0 [facility] CenterVrflmmzWMMMKGKEJX3438-35-65 05:01:00 Test Item Value Reference Range Interpretation Comments RDW (test code = RDW) 14.1 11.5-14.5 [facility] CenterQunijvhGBAVIDEOMR4160-58-41 05:01:00 Test Item Value Reference Range Interpretation Comments Platelet (test code = Platelet) 237 133-450 [facility] CenterAmqjkjdXDJCUWYLHJ1578-81-86 05:01:00 Test Item Value Reference Range Interpretation Comments MPV (test code = MPV) 9.1 7.4-10.4 [facility] CenterGwyquaeEJBFONTFVP7447-54-46 05:01:00 Test Item Value Reference Range Interpretation Comments PT (test code = PT) 12.4 s 12.0-14.7 [place] 440272-07-21 05:01:00 Test Item Value Reference Range Interpretation Comments INR (test code = INR) 0.93 1 0.85-1.17 [facility] CenterHxsxsquKCLGFWWZFF8297-59-76 05:01:00 Test Item Value Reference Range Interpretation Comments PTT (test code = PTT) 26.5 s 22.9-35.8 [place] 440272-07-21 05:01:00 Test Item Value Reference Range Interpretation Comments Segs (test code = Segs) 40.0 45.0-75.0 [place] 440272-07-21 05:01:00 Test Item Value Reference Range Interpretation Comments Lymphocytes (test code = Lymphocytes) 49.7 20.0-40.0 [place] 440272-07-21 05:01:00 Test Item Value Reference Range Interpretation Comments Monocytes (test code = Monocytes) 8.5 2.0-12.0 [facility] CenterEkjhotmKCQTUZSWWG6484-43-48 05:01:00 Test Item Value Reference Range Interpretation Comments Eosinophils (test code = 1.0 See_Comment [A utomated message] The Eosinophils) system which ge nerated this result tra nsmitted reference range : <=4.0. The reference r kat was not used to int erpret this result as normal/abnormal . [facility] CenterAfeeitzGVDAWLXGCO5767-59-73 05:01:00 Test Item Value Reference Range Interpretation Comments Basophils (test code = 0.8 See_Comment [Aut omated message] The Basophils) system which ge nerated this result tra nsmitted reference range : <=1.0. The reference r kat was not used to int erpret this result as normal/abnormal . [facility] CenterUtbinomFKVGFQWTRK2482-44-74 05:01:00 Test Item Value Reference Range Interpretation Comments Neutrophils # (test code = Neutrophils 2.5 1.5-8.1 #) [place] 440272-07-21 05:01:00 Test Item Value Reference Range Interpretation Comments Lymphocytes # (test code = Lymphocytes 3.2 1.0-5.5 #) [place] 440272-07-21 05:01:00 Test Item Value Reference Range Interpretation Comments Monocytes # (test code 0.5 See_Comment [Aut omated message] The = Monocytes #) system which generated this result tra nsmitted reference range : <=0.8. The reference r kat was not used to int erpret this result as normal/abnormal . [facility] HospitalVgalnhsRUTWGGNEDO9180-32-62 05:01:00 Test Item Value Reference Range Interpretation Comments Eosinophils # (test code 0.1 See_Comment [A utomated message] The = Eosinophils #) system whic h generated this result tra nsmitted reference range : <=0.5. The reference r kta was not used to int erpret this result as normal/abnormal . [facility] HospitalCARDIAC [id number] 05:01:00 Test Item Value Reference Range Interpretation Comments HS Troponin I (test code = HS Troponin 5 I) [facility] [id number] 05:01:00 Test Item Value Reference Range Interpretation Comments Glucose Lvl (test code = Glucose Lvl) 96 70-99 [facility]2022-07-21 05:01:00 Test Item Value Reference Range Interpretation Comments BUN (test code = BUN) 16 7-22 [facility]2022-07-21 05:01:00 Test Item Value Reference Range Interpretation Comments Creatinine Lvl (test code = Creatinine 0.73 0.50-1.40 Lvl) [facility]ownInterpretOmicsCAROMONT [id number] 05:01:00 Test Item Value Reference Range Interpretation Comments Sodium Lvl (test code = Sodium Lvl) 141 135-145 [facility]2022-07-21 05:01:00 Test Item Value Reference Range Interpretation Comments Potassium Lvl (test code = Potassium 3.6 3.5-5.1 Lvl) [facility]2022-07-21 05:01:00 Test Item Value Reference Range Interpretation Comments Chloride Lvl (test code = Chloride Lvl) 110 95-109 [facility] UptownInterpretOmicsCAROMONT [id number] 05:01:00 Test Item Value Reference Range Interpretation Comments CO2 (test code = CO2) 25 24-32 [facility]2022-07-21 05:01:00 Test Item Value Reference Range Interpretation Comments Calcium Lvl (test code = Calcium Lvl) 9.3 8.5-10.5 [facility]2022-07-21 05:01:00 Test Item Value Reference Range Interpretation Comments Total Protein (test code = Total 7.2 6.4-8.4 Protein) [facility]2022-07-21 05:01:00 Test Item Value Reference Range Interpretation Comments Albumin Lvl (test code = Albumin Lvl) 3.7 3.5-5.0 [place] 656902-07-21 05:01:00 Test Item Value Reference Range Interpretation Comments ALT (test code = ALT) 59 See_Comment [Auto mated message] The system which ge nerated this result transmit arvind reference range : <=65. The reference range was not used to interpr et this result as mario l/abnormal. [place] 656902-07-21 05:01:00 Test Item Value Reference Range Interpretation Comments AST (test code = AST) 24 See_Comment [Auto mated message] The system which ge nerated this result transmit arvind reference range : <=37. The reference range was not used to interpr et this result as mario l/abnormal. [place] 656902-07-21 05:01:00 Test Item Value Reference Range Interpretation Comments Alk Phos (test code = Alk Phos) 60 39-136 [facility]2022-07-21 05:01:00 Test Item Value Reference Range Interpretation Comments Bili Total (test code = Bili Total) 0.2 0.2-1.3 [place] 656902-07-21 05:01:00 Test Item Value Reference Range Interpretation Comments AGAP (test code = AGAP) 9.6 10.0-20.0 [place] 656902-07-21 05:01:00 Test Item Value Reference Range Interpretation Comments B/C Ratio (test code = B/C Ratio) 22 1 6-25 [place] 656902-07-21 05:01:00 Test Item Value Reference Range Interpretation Comments Globulin (test code = Globulin) 3.5 2.7-4.2 [place] 656902-07-21 05:01:00 Test Item Value Reference Range Interpretation Comments A/G Ratio (test code = A/G Ratio) 1.1 1 0.7-1.6 [place] 656902-07-21 05:01:00 Test Item Value Reference Range Interpretation Comments eGFR (test code = eGFR) 112 [facility] CenterOhnyzwnGCLHXDWKYB5803-79-58 05:01:00 Test Item Value Reference Range Interpretation Comments WBC (test code = WBC) 6.4 3.7-10.4 [facility] CenterTieijymXLFQYVZPPC6929-94-22 05:01:00 Test Item Value Reference Range Interpretation Comments RBC (test code = RBC) 5.28 4.20-5.40 [facility] CenterQjqkypsYDMGCIJCJZ1684-41-71 05:01:00 Test Item Value Reference Range Interpretation Comments Hgb (test code = Hgb) 14.1 12.0-16.0 [facility] CenterClalkvlLANLTIXNYH7321-59-07 05:01:00 Test Item Value Reference Range Interpretation Comments Hct (test code = Hct) 43.0 36.0-48.0 [facility] CenterUadumpgETAQKJFXSR8345-53-37 05:01:00 Test Item Value Reference Range Interpretation Comments MCV (test code = MCV) 81.4 80.0-98.0 [place] 440272-07-21 05:01:00 Test Item Value Reference Range Interpretation Comments MCH (test code = MCH) 26.7 pg 27.0-31.0 [facility] CenterAmbkyasLAZCKFWCXW9130-45-92 05:01:00 Test Item Value Reference Range Interpretation Comments MCHC (test code = MCHC) 32.9 32.0-36.0 [facility] CenterIdahbccSADEWLSGLO5528-00-51 05:01:00 Test Item Value Reference Range Interpretation Comments RDW (test code = RDW) 14.1 11.5-14.5 [facility] CenterBjoevshLZKCXDHZZG0095-45-09 05:01:00 Test Item Value Reference Range Interpretation Comments Platelet (test code = Platelet) 237 133-450 [facility] CenterUuzarqyDSSEMQPIGU5457-48-22 05:01:00 Test Item Value Reference Range Interpretation Comments MPV (test code = MPV) 9.1 7.4-10.4 [facility] CenterAmtbltlETLUOSICOE3495-03-27 05:01:00 Test Item Value Reference Range Interpretation Comments PT (test code = PT) 12.4 s 12.0-14.7 [facility] CenterRineleaNPPODAJUCC4885-56-05 05:01:00 Test Item Value Reference Range Interpretation Comments INR (test code = INR) 0.93 1 0.85-1.17 [facility] CenterQolwcadFISWVISBXN4338-50-15 05:01:00 Test Item Value Reference Range Interpretation Comments PTT (test code = PTT) 26.5 s 22.9-35.8 [facility] CenterRpruwtrCDWQONFDIP6811-89-42 05:01:00 Test Item Value Reference Range Interpretation Comments Segs (test code = Segs) 40.0 45.0-75.0 [facility] CenterPwrkriwBEYSXEJFHP5534-22-86 05:01:00 Test Item Value Reference Range Interpretation Comments Lymphocytes (test code = Lymphocytes) 49.7 20.0-40.0 [place] 440272-07-21 05:01:00 Test Item Value Reference Range Interpretation Comments Monocytes (test code = Monocytes) 8.5 2.0-12.0 [place] 440272-07-21 05:01:00 Test Item Value Reference Range Interpretation Comments Eosinophils (test code = 1.0 See_Comment [A utomated message] The Eosinophils) system which ge nerated this result tra nsmitted reference range : <=4.0. The reference r kat was not used to int erpret this result as normal/abnormal . [facility] CenterBgukghgHKJISVIQCO6798-80-75 05:01:00 Test Item Value Reference Range Interpretation Comments Basophils (test code = 0.8 See_Comment [Aut omated message] The Basophils) system which ge nerated this result tra nsmitted reference range : <=1.0. The reference r kat was not used to int erpret this result as normal/abnormal . [facility] CenterFhlkorxGSLYINHEHM0308-27-87 05:01:00 Test Item Value Reference Range Interpretation Comments Neutrophils # (test code = Neutrophils 2.5 1.5-8.1 #) [facility] CenterBjfbxdtGVLSPLNIGO2073-78-58 05:01:00 Test Item Value Reference Range Interpretation Comments Lymphocytes # (test code = Lymphocytes 3.2 1.0-5.5 #) [place] 440272-07-21 05:01:00 Test Item Value Reference Range Interpretation Comments Monocytes # (test code 0.5 See_Comment [Aut omated message] The = Monocytes #) system which generated this result tra nsmitted reference range : <=0.8. The reference r kat was not used to int erpret this result as normal/abnormal . [place] 440272-07-21 05:01:00 Test Item Value Reference Range Interpretation Comments Eosinophils # (test code 0.1 See_Comment [A utomated message] The = Eosinophils #) system Reasultic h generated this result tra nsmitted reference range : <=0.5. The reference r kat was not used to int erpret this result as normal/abnormal . [facility] [id number] 05:01:00 Test Item Value Reference Range Interpretation Comments HS Troponin I (test code = HS Troponin 5 I) [facility] [id number] 05:01:00 Test Item Value Reference Range Interpretation Comments Glucose Lvl (test code = Glucose Lvl) 96 70-99 [facility] [id number] 05:01:00 Test Item Value Reference Range Interpretation Comments BUN (test code = BUN) 16 7-22 [facility]2022-07-21 05:01:00 Test Item Value Reference Range Interpretation Comments Creatinine Lvl (test code = Creatinine 0.73 0.50-1.40 Lvl) [facility] [id number] 05:01:00 Test Item Value Reference Range Interpretation Comments Sodium Lvl (test code = Sodium Lvl) 141 135-145 [facility] HospitalBioc[facility] [id number] 05:01:00 Test Item Value Reference Range Interpretation Comments Potassium Lvl (test code = Potassium 3.6 3.5-5.1 Lvl) [facility]2022-07-21 05:01:00 Test Item Value Reference Range Interpretation Comments Chloride Lvl (test code = Chloride Lvl) 110 95-109 [facility]2022-07-21 05:01:00 Test Item Value Reference Range Interpretation Comments CO2 (test code = CO2) 25 24-32 [facility]2022-07-21 05:01:00 Test Item Value Reference Range Interpretation Comments Calcium Lvl (test code = Calcium Lvl) 9.3 8.5-10.5 [facility]2022-07-21 05:01:00 Test Item Value Reference Range Interpretation Comments Total Protein (test code = Total 7.2 6.4-8.4 Protein) [facility]2022-07-21 05:01:00 Test Item Value Reference Range Interpretation Comments Albumin Lvl (test code = Albumin Lvl) 3.7 3.5-5.0 [facility]2022-07-21 05:01:00 Test Item Value Reference Range Interpretation Comments ALT (test code = ALT) 59 See_Comment [Auto mated message] The system which ge nerated this result transmit arvind reference range : <=65. The reference range was not used to interpr et this result as amrio l/abnormal. [facility]Bi[facility] [id number] 05:01:00 Test Item Value Reference Range Interpretation Comments AST (test code = AST) 24 See_Comment [Auto mated message] The system which ge nerated this result transmit arvind reference range : <=37. The reference range was not used to interpr et this result as mario l/abnormal. [facility] [id number] 05:01:00 Test Item Value Reference Range Interpretation Comments Alk Phos (test code = Alk Phos) 60 39-136 [facility] [id number] 05:01:00 Test Item Value Reference Range Interpretation Comments Bili Total (test code = Bili Total) 0.2 0.2-1.3 [facility]Bi[facility] [id number] 05:01:00 Test Item Value Reference Range Interpretation Comments AGAP (test code = AGAP) 9.6 10.0-20.0 [facility]Bi[facility] [id number] 05:01:00 Test Item Value Reference Range Interpretation Comments B/C Ratio (test code = B/C Ratio) 22 1 6-25 [facility] [id number] 05:01:00 Test Item Value Reference Range Interpretation Comments Globulin (test code = Globulin) 3.5 2.7-4.2 [facility] [id number] 05:01:00 Test Item Value Reference Range Interpretation Comments A/G Ratio (test code = A/G Ratio) 1.1 1 0.7-1.6 [place] 656902-07-21 05:01:00 Test Item Value Reference Range Interpretation Comments eGFR (test code = eGFR) 112 [place] 440272-07-21 05:01:00 Test Item Value Reference Range Interpretation Comments WBC (test code = WBC) 6.4 3.7-10.4 [place] 440272-07-21 05:01:00 Test Item Value Reference Range Interpretation Comments RBC (test code = RBC) 5.28 4.20-5.40 [place] 440272-07-21 05:01:00 Test Item Value Reference Range Interpretation Comments Hgb (test code = Hgb) 14.1 12.0-16.0 [facility] CenterFnniybbHOWWGNRKHK2486-81-67 05:01:00 Test Item Value Reference Range Interpretation Comments Hct (test code = Hct) 43.0 36.0-48.0 [facility] CenterAsjirxyGFSVKIVWBR5546-23-47 05:01:00 Test Item Value Reference Range Interpretation Comments MCV (test code = MCV) 81.4 80.0-98.0 [facility] CenterEzoeyylTTNGLXKKRK8796-54-80 05:01:00 Test Item Value Reference Range Interpretation Comments MCH (test code = MCH) 26.7 pg 27.0-31.0 [facility] CenterPpqgefzTAXEMABWTU3003-72-42 05:01:00 Test Item Value Reference Range Interpretation Comments MCHC (test code = MCHC) 32.9 32.0-36.0 [facility] CenterLvoukziXQTWGVDCYW4408-03-35 05:01:00 Test Item Value Reference Range Interpretation Comments RDW (test code = RDW) 14.1 11.5-14.5 [facility] CenterDbrlcmzAGPGXVEEUT2630-00-27 05:01:00 Test Item Value Reference Range Interpretation Comments Platelet (test code = Platelet) 237 133-450 [facility] CenterNbxwkcjVQQUUSPILI3302-38-16 05:01:00 Test Item Value Reference Range Interpretation Comments MPV (test code = MPV) 9.1 7.4-10.4 [facility] CenterCwrnxurVSDHPXFSRJ8834-81-23 05:01:00 Test Item Value Reference Range Interpretation Comments PT (test code = PT) 12.4 s 12.0-14.7 [place] 440272-07-21 05:01:00 Test Item Value Reference Range Interpretation Comments INR (test code = INR) 0.93 1 0.85-1.17 [place] 440272-07-21 05:01:00 Test Item Value Reference Range Interpretation Comments PTT (test code = PTT) 26.5 s 22.9-35.8 [place] 440272-07-21 05:01:00 Test Item Value Reference Range Interpretation Comments Segs (test code = Segs) 40.0 45.0-75.0 [facility] CenterVkztzmxFCGYBHTHFQ3080-99-52 05:01:00 Test Item Value Reference Range Interpretation Comments Lymphocytes (test code = Lymphocytes) 49.7 20.0-40.0 [facility]IjvkyqkCRLXYVJBMV5000-89-47 05:01:00 Test Item Value Reference Range Interpretation Comments Monocytes (test code = Monocytes) 8.5 2.0-12.0 [facility] CenterTpiuycjUTYPRCZFEP1052-00-95 05:01:00 Test Item Value Reference Range Interpretation Comments Eosinophils (test code = 1.0 See_Comment [A utomated message] The Eosinophils) system which ge nerated this result tra nsmitted reference range : <=4.0. The reference r kat was not used to int erpret this result as normal/abnormal . [facility] CenterPskqzdgZMYUTGGXMP4300-69-23 05:01:00 Test Item Value Reference Range Interpretation Comments Basophils (test code = 0.8 See_Comment [Aut omated message] The Basophils) system which ge nerated this result tra nsmitted reference range : <=1.0. The reference r kat was not used to int erpret this result as normal/abnormal . [facility] CenterItjmwetABVSMEONMY9739-90-76 05:01:00 Test Item Value Reference Range Interpretation Comments Neutrophils # (test code = Neutrophils 2.5 1.5-8.1 #) [facility] CenterVpaiiuyCOIGMHPWIU2103-79-61 05:01:00 Test Item Value Reference Range Interpretation Comments Lymphocytes # (test code = Lymphocytes 3.2 1.0-5.5 #) [facility] CenterUtcpbemMACSCJYADE1478-86-42 05:01:00 Test Item Value Reference Range Interpretation Comments Monocytes # (test code 0.5 See_Comment [Aut omated message] The = Monocytes #) system which generated this result tra nsmitted reference range : <=0.8. The reference r kat was not used to int erpret this result as normal/abnormal . [facility] CenterEmsotaeXGWPPEDJTY3859-25-48 05:01:00 Test Item Value Reference Range Interpretation Comments Eosinophils # (test code 0.1 See_Comment [A utomated message] The = Eosinophils #) system whic h generated this result tra nsmitted reference range : <=0.5. The reference r kat was not used to int erpret this result as normal/abnormal . [facility] PTHSRLI9538-02-46 05:01:00 Test Item Value Reference Range Interpretation Comments HS Troponin I (test code = HS Troponin [address] I) [facility]2022-07-21 05:01:00 Test Item Value Reference Range Interpretation Comments Glucose Lvl (test code = Glucose Lvl) 96 70-99 [place] 656902-07-21 05:01:00 Test Item Value Reference Range Interpretation Comments BUN (test code = BUN) 16 7-22 [place] 656902-07-21 05:01:00 Test Item Value Reference Range Interpretation Comments Creatinine Lvl (test code = Creatinine 0.73 0.50-1.40 Lvl) [place] 656902-07-21 05:01:00 Test Item Value Reference Range Interpretation Comments Sodium Lvl (test code = Sodium Lvl) 141 135-145 [place] 656902-07-21 05:01:00 Test Item Value Reference Range Interpretation Comments Potassium Lvl (test code = Potassium 3.6 3.5-5.1 Lvl) [place] 656902-07-21 05:01:00 Test Item Value Reference Range Interpretation Comments Chloride Lvl (test code = Chloride Lvl) 110 95-109 [place] 656902-07-21 05:01:00 Test Item Value Reference Range Interpretation Comments CO2 (test code = CO2) 25 24-32 [place] 656902-07-21 05:01:00 Test Item Value Reference Range Interpretation Comments Calcium Lvl (test code = Calcium Lvl) 9.3 8.5-10.5 [place] 656902-07-21 05:01:00 Test Item Value Reference Range Interpretation Comments Total Protein (test code = Total 7.2 6.4-8.4 Protein) [facility]2022-07-21 05:01:00 Test Item Value Reference Range Interpretation Comments Albumin Lvl (test code = Albumin Lvl) 3.7 3.5-5.0 [place] 656902-07-21 05:01:00 Test Item Value Reference Range Interpretation Comments ALT (test code = ALT) 59 See_Comment [Auto mated message] The system which ge nerated this result transmit arvind reference range : <=65. The reference range was not used to interpr et this result as mario l/abnormal. [place] 656902-07-21 05:01:00 Test Item Value Reference Range Interpretation Comments AST (test code = AST) 24 See_Comment [Auto mated message] The system which ge nerated this result transmit arvind reference range : <=37. The reference range was not used to interpr et this result as mario l/abnormal. [facility]2022-07-21 05:01:00 Test Item Value Reference Range Interpretation Comments Alk Phos (test code = Alk Phos) 60 39-136 [facility]2022-07-21 05:01:00 Test Item Value Reference Range Interpretation Comments Bili Total (test code = Bili Total) 0.2 0.2-1.3 [facility]2022-07-21 05:01:00 Test Item Value Reference Range Interpretation Comments AGAP (test code = AGAP) 9.6 10.0-20.0 [place] 656902-07-21 05:01:00 Test Item Value Reference Range Interpretation Comments B/C Ratio (test code = B/C Ratio) 22 1 6-25 [place] 656902-07-21 05:01:00 Test Item Value Reference Range Interpretation Comments Globulin (test code = Globulin) 3.5 2.7-4.2 [facility]2022-07-21 05:01:00 Test Item Value Reference Range Interpretation Comments A/G Ratio (test code = A/G Ratio) 1.1 1 0.7-1.6 [facility]2022-07-21 05:01:00 Test Item Value Reference Range Interpretation Comments eGFR (test code = eGFR) 112 [facility] CenterZjdpjzwJNJMKZRGBM3721-23-39 05:01:00 Test Item Value Reference Range Interpretation Comments WBC (test code = WBC) 6.4 3.7-10.4 [place] 440272-07-21 05:01:00 Test Item Value Reference Range Interpretation Comments RBC (test code = RBC) 5.28 4.20-5.40 [place] 440272-07-21 05:01:00 Test Item Value Reference Range Interpretation Comments Hgb (test code = Hgb) 14.1 12.0-16.0 [place] 440272-07-21 05:01:00 Test Item Value Reference Range Interpretation Comments Hct (test code = Hct) 43.0 36.0-48.0 [facility] CenterRhpydvjIFVRJIMHDO7196-00-01 05:01:00 Test Item Value Reference Range Interpretation Comments MCV (test code = MCV) 81.4 80.0-98.0 [facility] CenterAsmjulkCECBCERUTY8946-66-87 05:01:00 Test Item Value Reference Range Interpretation Comments MCH (test code = MCH) 26.7 pg 27.0-31.0 [facility] CenterKgheyraALZFKIYRLN7444-73-49 05:01:00 Test Item Value Reference Range Interpretation Comments MCHC (test code = MCHC) 32.9 32.0-36.0 [facility] CenterLvnfifwIZADMJOHRC9625-71-66 05:01:00 Test Item Value Reference Range Interpretation Comments RDW (test code = RDW) 14.1 11.5-14.5 [place] 440272-07-21 05:01:00 Test Item Value Reference Range Interpretation Comments Platelet (test code = Platelet) 237 133-450 [facility] CenterFxrpuizRGOUOYODOL1929-23-76 05:01:00 Test Item Value Reference Range Interpretation Comments MPV (test code = MPV) 9.1 7.4-10.4 [facility] CenterLngnzvpLFFYZVDXEH3807-79-24 05:01:00 Test Item Value Reference Range Interpretation Comments PT (test code = PT) 12.4 s 12.0-14.7 [facility] CenterLzebueoLYEOOUUXHQ4780-71-54 05:01:00 Test Item Value Reference Range Interpretation Comments INR (test code = INR) 0.93 1 0.85-1.17 [facility] CenterGrlbylfTQCPRBZGPF4647-84-22 05:01:00 Test Item Value Reference Range Interpretation Comments PTT (test code = PTT) 26.5 s 22.9-35.8 [facility] CenterHgyuydaMUIWNHMESE2830-01-77 05:01:00 Test Item Value Reference Range Interpretation Comments Segs (test code = Segs) 40.0 45.0-75.0 [place] 440272-07-21 05:01:00 Test Item Value Reference Range Interpretation Comments Lymphocytes (test code = Lymphocytes) 49.7 20.0-40.0 [facility] CenterUgzffuxBYNNISRTNE2444-91-67 05:01:00 Test Item Value Reference Range Interpretation Comments Monocytes (test code = Monocytes) 8.5 2.0-12.0 [facility] CenterHjqqgxxGFXWZQFLDX6733-69-25 05:01:00 Test Item Value Reference Range Interpretation Comments Eosinophils (test code = 1.0 See_Comment [A utomated message] The Eosinophils) system which ge nerated this result tra nsmitted reference range : <=4.0. The reference r kat was not used to int erpret this result as normal/abnormal . [facility] CenterAxeojpcOIZRADDGIR3243-30-24 05:01:00 Test Item Value Reference Range Interpretation Comments Basophils (test code = 0.8 See_Comment [Aut omated message] The Basophils) system which ge nerated this result tra nsmitted reference range : <=1.0. The reference r kat was not used to int erpret this result as normal/abnormal . [facility] CenterVpboqfeMNMGYUFAWV6083-38-63 05:01:00 Test Item Value Reference Range Interpretation Comments Neutrophils # (test code = Neutrophils 2.5 1.5-8.1 #) [facility]YdjhnirRQPDHFIRNV4017-85-96 05:01:00 Test Item Value Reference Range Interpretation Comments Lymphocytes # (test code = Lymphocytes 3.2 1.0-5.5 #) [facility] CenterCqfrnaiUHAAYJBBDV8606-42-84 05:01:00 Test Item Value Reference Range Interpretation Comments Monocytes # (test code 0.5 See_Comment [Aut omated message] The = Monocytes #) system which generated this result tra nsmitted reference range : <=0.8. The reference r kat was not used to int erpret this result as normal/abnormal . [facility] CenterJibtgnxWHPPLOKVJF3337-97-29 05:01:00 Test Item Value Reference Range Interpretation Comments Eosinophils # (test code 0.1 See_Comment [A utomated message] The = Eosinophils #) system whic h generated this result tra nsmitted reference range : <=0.5. The reference r kat was not used to int erpret this result as normal/abnormal . [facility]CARD[facility] WHENRVQ5220-60-55 05:01:00 Test Item Value Reference Range Interpretation Comments HS Troponin I (test code = HS Troponin 5 I) [facility] [id number] 05:01:00 Test Item Value Reference Range Interpretation Comments Glucose Lvl (test code = Glucose Lvl) 96 70-99 [facility] VWHDY7544-97-77 05:01:00 Test Item Value Reference Range Interpretation Comments BUN (test code = BUN) 16 7-22 [place] 656902-07-21 05:01:00 Test Item Value Reference Range Interpretation Comments Creatinine Lvl (test code = Creatinine 0.73 0.50-1.40 Lvl) [place] 656902-07-21 05:01:00 Test Item Value Reference Range Interpretation Comments Sodium Lvl (test code = Sodium Lvl) 141 135-145 [place] 656902-07-21 05:01:00 Test Item Value Reference Range Interpretation Comments Potassium Lvl (test code = Potassium 3.6 3.5-5.1 Lvl) [place] 656902-07-21 05:01:00 Test Item Value Reference Range Interpretation Comments Chloride Lvl (test code = Chloride Lvl) 110 95-109 [place] 656902-07-21 05:01:00 Test Item Value Reference Range Interpretation Comments CO2 (test code = CO2) 25 24-32 [place] 656902-07-21 05:01:00 Test Item Value Reference Range Interpretation Comments Calcium Lvl (test code = Calcium Lvl) 9.3 8.5-10.5 [place] 656902-07-21 05:01:00 Test Item Value Reference Range Interpretation Comments Total Protein (test code = Total 7.2 6.4-8.4 Protein) [place] 656902-07-21 05:01:00 Test Item Value Reference Range Interpretation Comments Albumin Lvl (test code = Albumin Lvl) 3.7 3.5-5.0 [place] 656902-07-21 05:01:00 Test Item Value Reference Range Interpretation Comments ALT (test code = ALT) 59 See_Comment [Auto mated message] The system which ge nerated this result transmit arvind reference range : <=65. The reference range was not used to interpr et this result as mario l/abnormal. [place] 656902-07-21 05:01:00 Test Item Value Reference Range Interpretation Comments AST (test code = AST) 24 See_Comment [Auto mated message] The system which ge nerated this result transmit arvind reference range : <=37. The reference range was not used to interpr et this result as mario l/abnormal. [place] 656902-07-21 05:01:00 Test Item Value Reference Range Interpretation Comments Alk Phos (test code = Alk Phos) 60 39-136 [facility]2022-07-21 05:01:00 Test Item Value Reference Range Interpretation Comments Bili Total (test code = Bili Total) 0.2 0.2-1.3 [facility]2022-07-21 05:01:00 Test Item Value Reference Range Interpretation Comments AGAP (test code = AGAP) 9.6 10.0-20.0 [facility]2022-07-21 05:01:00 Test Item Value Reference Range Interpretation Comments B/C Ratio (test code = B/C Ratio) 22 1 6-25 [facility]2022-07-21 05:01:00 Test Item Value Reference Range Interpretation Comments Globulin (test code = Globulin) 3.5 2.7-4.2 [facility]2022-07-21 05:01:00 Test Item Value Reference Range Interpretation Comments A/G Ratio (test code = A/G Ratio) 1.1 1 0.7-1.6 [facility]2022-07-21 05:01:00 Test Item Value Reference Range Interpretation Comments eGFR (test code = eGFR) 112 [facility] CenterAzsvqmdBIQBLKJKGN9875-02-88 05:01:00 Test Item Value Reference Range Interpretation Comments WBC (test code = WBC) 6.4 3.7-10.4 [facility] CenterNtibueoMAFXTXQQSX2548-60-37 05:01:00 Test Item Value Reference Range Interpretation Comments RBC (test code = RBC) 5.28 4.20-5.40 [facility] CenterJzswxnsZOUJGKTPHW8746-74-86 05:01:00 Test Item Value Reference Range Interpretation Comments Hgb (test code = Hgb) 14.1 12.0-16.0 [facility] QRMFODH1005-14-52 05:01:00 Test Item Value Reference Range Interpretation Comments HS Troponin I (test code = HS Troponin 5 I) [facility] CenterJkijianEIXYCWCAJC1107-96-41 05:01:00 Test Item Value Reference Range Interpretation Comments Hct (test code = Hct) 43.0 36.0-48.0 [facility] CenterKvbnwizRXXVHNKHIK4843-98-28 05:01:00 Test Item Value Reference Range Interpretation Comments MCV (test code = MCV) 81.4 80.0-98.0 [facility] CenterWapnptwBAHHTWSVNZ8612-16-38 05:01:00 Test Item Value Reference Range Interpretation Comments MCH (test code = MCH) 26.7 pg 27.0-31.0 [facility] CenterNuurrelWMMVIOJGQV3729-03-78 05:01:00 Test Item Value Reference Range Interpretation Comments MCHC (test code = MCHC) 32.9 32.0-36.0 [facility] CenterAawuujqZGWEGQTXYO6278-79-34 05:01:00 Test Item Value Reference Range Interpretation Comments RDW (test code = RDW) 14.1 11.5-14.5 [facility] CenterRcjsuabPSXCVZWQJN9585-62-74 05:01:00 Test Item Value Reference Range Interpretation Comments Platelet (test code = Platelet) 237 133-450 [facility] CenterTahiexnPAEHCXBRXS3679-34-45 05:01:00 Test Item Value Reference Range Interpretation Comments MPV (test code = MPV) 9.1 7.4-10.4 [facility] CenterYzaksxcJQAECOFMXZ0263-29-64 05:01:00 Test Item Value Reference Range Interpretation Comments PT (test code = PT) 12.4 s 12.0-14.7 [facility] CenterAhalxgrAABOIQPHRU8847-27-75 05:01:00 Test Item Value Reference Range Interpretation Comments INR (test code = INR) 0.93 1 0.85-1.17 [facility] CenterQiftqubIHEWWJSEIE3375-34-39 05:01:00 Test Item Value Reference Range Interpretation Comments PTT (test code = PTT) 26.5 s 22.9-35.8 [facility]2022-07-21 05:01:00 Test Item Value Reference Range Interpretation Comments Glucose Lvl (test code = Glucose Lvl) 96 70-99 [facility] CenterZmaddudIYPMQAKNUQ2318-57-11 05:01:00 Test Item Value Reference Range Interpretation Comments Segs (test code = Segs) 40.0 45.0-75.0 [facility] CenterThtpfqqPRIORWJEAW1666-55-64 05:01:00 Test Item Value Reference Range Interpretation Comments Lymphocytes (test code = Lymphocytes) 49.7 20.0-40.0 [facility] CenterYpqkeiyQCFDLLPDTM9874-32-48 05:01:00 Test Item Value Reference Range Interpretation Comments Monocytes (test code = Monocytes) 8.5 2.0-12.0 [place] 440272-07-21 05:01:00 Test Item Value Reference Range Interpretation Comments Eosinophils (test code = 1.0 See_Comment [A utomated message] The Eosinophils) system which ge nerated this result tra nsmitted reference range : <=4.0. The reference r kat was not used to int erpret this result as normal/abnormal . [facility] CenterMaeiwneKSAGTVXNHC2918-16-34 05:01:00 Test Item Value Reference Range Interpretation Comments Basophils (test code = 0.8 See_Comment [Aut omated message] The Basophils) system which ge nerated this result tra nsmitted reference range : <=1.0. The reference r kat was not used to int erpret this result as normal/abnormal . [facility] CenterPlsxdchARGAVWAFZC6184-34-19 05:01:00 Test Item Value Reference Range Interpretation Comments Neutrophils # (test code = Neutrophils 2.5 1.5-8.1 #) [facility] CenterBoiubnyPKJUQJFPLW9393-85-42 05:01:00 Test Item Value Reference Range Interpretation Comments Lymphocytes # (test code = Lymphocytes 3.2 1.0-5.5 #) [facility] CenterLusouuyJWGOEVUKTA1558-28-18 05:01:00 Test Item Value Reference Range Interpretation Comments Monocytes # (test code 0.5 See_Comment [Aut omated message] The = Monocytes #) system which generated this result tra nsmitted reference range : <=0.8. The reference r kat was not used to int erpret this result as normal/abnormal . [facility] CenterGiofnzvKWDCQWEPKE1125-52-65 05:01:00 Test Item Value Reference Range Interpretation Comments Eosinophils # (test code 0.1 See_Comment [A utomated message] The = Eosinophils #) system whic h generated this result tra nsmitted reference range : <=0.5. The reference r kat was not used to int erpret this result as normal/abnormal . [facility]2022-07-21 05:01:00 Test Item Value Reference Range Interpretation Comments BUN (test code = BUN) 16 03-20 [place] 656902-07-21 05:01:00 Test Item Value Reference Range Interpretation Comments Creatinine Lvl (test code = Creatinine 0.73 0.50-1.40 Lvl) [facility]2022-07-21 05:01:00 Test Item Value Reference Range Interpretation Comments Sodium Lvl (test code = Sodium Lvl) 141 135-145 [place] 656902-07-21 05:01:00 Test Item Value Reference Range Interpretation Comments Potassium Lvl (test code = Potassium 3.6 3.5-5.1 Lvl) [place] 656902-07-21 05:01:00 Test Item Value Reference Range Interpretation Comments Chloride Lvl (test code = Chloride Lvl) 110 95-109 [place] 656902-07-21 05:01:00 Test Item Value Reference Range Interpretation Comments CO2 (test code = CO2) 25 24-32 [place] 656902-07-21 05:01:00 Test Item Value Reference Range Interpretation Comments Calcium Lvl (test code = Calcium Lvl) 9.3 8.5-10.5 [place] 656902-07-21 05:01:00 Test Item Value Reference Range Interpretation Comments Total Protein (test code = Total 7.2 6.4-8.4 Protein) [place] 656902-07-21 05:01:00 Test Item Value Reference Range Interpretation Comments Albumin Lvl (test code = Albumin Lvl) 3.7 3.5-5.0 [place] 656902-07-21 05:01:00 Test Item Value Reference Range Interpretation Comments ALT (test code = ALT) 59 See_Comment [Auto mated message] The system which ge nerated this result transmit arvind reference range : <=65. The reference range was not used to interpr et this result as mario l/abnormal. [facility] [id number] 05:01:00 Test Item Value Reference Range Interpretation Comments AST (test code = AST) 24 See_Comment [Auto mated message] The system which ge nerated this result transmit arvind reference range : <=37. The reference range was not used to interpr et this result as mario l/abnormal. [facility]Bi[facility] [id number] 05:01:00 Test Item Value Reference Range Interpretation Comments Alk Phos (test code = Alk Phos) 60 39-136 [place] 656902-07-21 05:01:00 Test Item Value Reference Range Interpretation Comments Bili Total (test code = Bili Total) 0.2 0.2-1.3 [facility]2022-07-21 05:01:00 Test Item Value Reference Range Interpretation Comments AGAP (test code = AGAP) 9.6 10.0-20.0 [facility]2022-07-21 05:01:00 Test Item Value Reference Range Interpretation Comments B/C Ratio (test code = B/C Ratio) 22 1 6-25 [place] 656902-07-21 05:01:00 Test Item Value Reference Range Interpretation Comments Globulin (test code = Globulin) 3.5 2.7-4.2 [facility]2022-07-21 05:01:00 Test Item Value Reference Range Interpretation Comments A/G Ratio (test code = A/G Ratio) 1.1 1 0.7-1.6 [facility]2022-07-21 05:01:00 Test Item Value Reference Range Interpretation Comments eGFR (test code = eGFR) 112 [facility] CenterHehknxpBDKMGZTEKY7361-50-78 05:01:00 Test Item Value Reference Range Interpretation Comments WBC (test code = WBC) 6.4 3.7-10.4 [facility] CenterDptdepjZACYGMAPPC9196-85-94 05:01:00 Test Item Value Reference Range Interpretation Comments RBC (test code = RBC) 5.28 4.20-5.40 [facility] CenterVaxkbrkTRYVMTKJBB4956-76-65 05:01:00 Test Item Value Reference Range Interpretation Comments Hgb (test code = Hgb) 14.1 12.0-16.0 [facility] CenterPjeoqdgFGVGXMOLLX7401-97-90 05:01:00 Test Item Value Reference Range Interpretation Comments Hct (test code = Hct) 43.0 36.0-48.0 [place] 440272-07-21 05:01:00 Test Item Value Reference Range Interpretation Comments MCV (test code = MCV) 81.4 80.0-98.0 [place] 440272-07-21 05:01:00 Test Item Value Reference Range Interpretation Comments MCH (test code = MCH) 26.7 pg 27.0-31.0 [place] 440272-07-21 05:01:00 Test Item Value Reference Range Interpretation Comments MCHC (test code = MCHC) 32.9 32.0-36.0 [facility] CenterEzaomcyEIVULWYKNQ1462-82-78 05:01:00 Test Item Value Reference Range Interpretation Comments RDW (test code = RDW) 14.1 11.5-14.5 [place] 440272-07-21 05:01:00 Test Item Value Reference Range Interpretation Comments Platelet (test code = Platelet) 237 133-450 [place] 440272-07-21 05:01:00 Test Item Value Reference Range Interpretation Comments MPV (test code = MPV) 9.1 7.4-10.4 [place] 440272-07-21 05:01:00 Test Item Value Reference Range Interpretation Comments PT (test code = PT) 12.4 s 12.0-14.7 [place] 440272-07-21 05:01:00 Test Item Value Reference Range Interpretation Comments INR (test code = INR) 0.93 1 0.85-1.17 [place] 440272-07-21 05:01:00 Test Item Value Reference Range Interpretation Comments PTT (test code = PTT) 26.5 s 22.9-35.8 [place] 440272-07-21 05:01:00 Test Item Value Reference Range Interpretation Comments Segs (test code = Segs) 40.0 45.0-75.0 [place] 440272-07-21 05:01:00 Test Item Value Reference Range Interpretation Comments Lymphocytes (test code = Lymphocytes) 49.7 20.0-40.0 [place] 440272-07-21 05:01:00 Test Item Value Reference Range Interpretation Comments Monocytes (test code = Monocytes) 8.5 2.0-12.0 [place] 440272-07-21 05:01:00 Test Item Value Reference Range Interpretation Comments Eosinophils (test code = 1.0 See_Comment [A utomated message] The Eosinophils) system which ge nerated this result tra nsmitted reference range : <=4.0. The reference r kat was not used to int erpret this result as normal/abnormal . [facility] CenterKirqwlvLIWYKTVSQI7058-75-13 05:01:00 Test Item Value Reference Range Interpretation Comments Basophils (test code = 0.8 See_Comment [Aut omated message] The Basophils) system which ge nerated this result tra nsmitted reference range : <=1.0. The reference r kat was not used to int erpret this result as normal/abnormal . [facility] CenterUzzvdvsKUSQCJRJFM9849-64-15 05:01:00 Test Item Value Reference Range Interpretation Comments Neutrophils # (test code = Neutrophils 2.5 1.5-8.1 #) [facility]RwvvvztWGUCTTXIAB1799-84-04 05:01:00 Test Item Value Reference Range Interpretation Comments Lymphocytes # (test code = Lymphocytes 3.2 1.0-5.5 #) [facility] CenterPcvfydgZOSFDHGFGY8532-61-16 05:01:00 Test Item Value Reference Range Interpretation Comments Monocytes # (test code 0.5 See_Comment [Aut omated message] The = Monocytes #) system which generated this result tra nsmitted reference range : <=0.8. The reference r kat was not used to int erpret this result as normal/abnormal . [facility] CenterSavmietOOJWMESWPN6947-07-55 05:01:00 Test Item Value Reference Range Interpretation Comments Eosinophils # (test code 0.1 See_Comment [A utomated message] The = Eosinophils #) system whic h generated this result tra nsmitted reference range : <=0.5. The reference r kat was not used to int erpret this result as normal/abnormal . [facility]CARDIAC EXAEFNT7873-72-72 05:01:00 Test Item Value Reference Range Interpretation Comments HS Troponin I (test code = HS Troponin [address] I) [facility]2022-07-21 05:01:00 Test Item Value Reference Range Interpretation Comments Glucose Lvl (test code = Glucose Lvl) 96 70-99 [facility]2022-07-21 05:01:00 Test Item Value Reference Range Interpretation Comments BUN (test code = BUN) 16 7-22 [facility]2022-07-21 05:01:00 Test Item Value Reference Range Interpretation Comments Creatinine Lvl (test code = Creatinine 0.73 0.50-1.40 Lvl) [facility]2022-07-21 05:01:00 Test Item Value Reference Range Interpretation Comments Sodium Lvl (test code = Sodium Lvl) 141 135-145 [facility]2022-07-21 05:01:00 Test Item Value Reference Range Interpretation Comments Potassium Lvl (test code = Potassium 3.6 3.5-5.1 Lvl) [place] 656902-07-21 05:01:00 Test Item Value Reference Range Interpretation Comments Chloride Lvl (test code = Chloride Lvl) 110 95-109 [place] 656902-07-21 05:01:00 Test Item Value Reference Range Interpretation Comments CO2 (test code = CO2) 25 24-32 [place] 656902-07-21 05:01:00 Test Item Value Reference Range Interpretation Comments Calcium Lvl (test code = Calcium Lvl) 9.3 8.5-10.5 [facility] [place] [id number] 05:01:00 Test Item Value Reference Range Interpretation Comments Total Protein (test code = Total 7.2 6.4-8.4 Protein) [place] 656902-07-21 05:01:00 Test Item Value Reference Range Interpretation Comments Albumin Lvl (test code = Albumin Lvl) 3.7 3.5-5.0 [facility] [place]InterpretOmicsEV[place] [id number] 05:01:00 Test Item Value Reference Range Interpretation Comments ALT (test code = ALT) 59 See_Comment [Auto mated message] The system which ge nerated this result transmit arvind reference range : <=65. The reference range was not used to interpr et this result as mario l/abnormal. [facility] [id number] 05:01:00 Test Item Value Reference Range Interpretation Comments AST (test code = AST) 24 See_Comment [Auto mated message] The system which ge nerated this result transmit arvind reference range : <=37. The reference range was not used to interpr et this result as mario l/abnormal. [facility] [id number] 05:01:00 Test Item Value Reference Range Interpretation Comments Alk Phos (test code = Alk Phos) 60 39-136 [place] 656902-07-21 05:01:00 Test Item Value Reference Range Interpretation Comments Bili Total (test code = Bili Total) 0.2 0.2-1.3 [place] 656902-07-21 05:01:00 Test Item Value Reference Range Interpretation Comments AGAP (test code = AGAP) 9.6 10.0-20.0 [facility] [id number] 05:01:00 Test Item Value Reference Range Interpretation Comments B/C Ratio (test code = B/C Ratio) 22 1 6-25 [facility] [id number] 05:01:00 Test Item Value Reference Range Interpretation Comments Globulin (test code = Globulin) 3.5 2.7-4.2 [facility] [id number] 05:01:00 Test Item Value Reference Range Interpretation Comments A/G Ratio (test code = A/G Ratio) 1.1 1 0.7-1.6 [facility]2022-07-21 05:01:00 Test Item Value Reference Range Interpretation Comments eGFR (test code = eGFR) 112 [facility] CenterToxylhvHSDTTZJPEO4524-61-69 05:01:00 Test Item Value Reference Range Interpretation Comments WBC (test code = WBC) 6.4 3.7-10.4 [facility] CenterLfazaldRPOJZTCSIX5531-44-60 05:01:00 Test Item Value Reference Range Interpretation Comments RBC (test code = RBC) 5.28 4.20-5.40 [facility] CenterOtxldpxWSUIQETPFQ6530-22-00 05:01:00 Test Item Value Reference Range Interpretation Comments Hgb (test code = Hgb) 14.1 12.0-16.0 [facility] CenterFeeyhinZEVVWJKOOP9969-52-75 05:01:00 Test Item Value Reference Range Interpretation Comments Hct (test code = Hct) 43.0 36.0-48.0 [facility] CenterZwbqmhkVAITHGLHWB8428-27-57 05:01:00 Test Item Value Reference Range Interpretation Comments MCV (test code = MCV) 81.4 80.0-98.0 [facility] CenterZcfpbpiFJZRPUPNWC0888-21-41 05:01:00 Test Item Value Reference Range Interpretation Comments MCH (test code = MCH) 26.7 pg 27.0-31.0 [facility] CenterRkrmxneIDHZLWSZYS9735-88-12 05:01:00 Test Item Value Reference Range Interpretation Comments MCHC (test code = MCHC) 32.9 32.0-36.0 [facility] CenterQrndndzYPXNWSBBSV4445-21-88 05:01:00 Test Item Value Reference Range Interpretation Comments RDW (test code = RDW) 14.1 11.5-14.5 [facility] CenterEqugespYTFOQPVIIT1920-56-74 05:01:00 Test Item Value Reference Range Interpretation Comments Platelet (test code = Platelet) 237 133-450 [facility] CenterHzeikemDHBBQEQAIF2831-03-79 05:01:00 Test Item Value Reference Range Interpretation Comments MPV (test code = MPV) 9.1 7.4-10.4 [place] 440272-07-21 05:01:00 Test Item Value Reference Range Interpretation Comments PT (test code = PT) 12.4 s 12.0-14.7 [place] 440272-07-21 05:01:00 Test Item Value Reference Range Interpretation Comments INR (test code = INR) 0.93 1 0.85-1.17 [place] 440272-07-21 05:01:00 Test Item Value Reference Range Interpretation Comments PTT (test code = PTT) 26.5 s 22.9-35.8 [place] 440272-07-21 05:01:00 Test Item Value Reference Range Interpretation Comments Segs (test code = Segs) 40.0 45.0-75.0 [place] 440272-07-21 05:01:00 Test Item Value Reference Range Interpretation Comments Lymphocytes (test code = Lymphocytes) 49.7 20.0-40.0 [place] 440272-07-21 05:01:00 Test Item Value Reference Range Interpretation Comments Monocytes (test code = Monocytes) 8.5 2.0-12.0 [place] 440272-07-21 05:01:00 Test Item Value Reference Range Interpretation Comments Eosinophils (test code = 1.0 See_Comment [A utomated message] The Eosinophils) system which ge nerated this result tra nsmitted reference range : <=4.0. The reference r kat was not used to int erpret this result as normal/abnormal . [facility] CenterIwvyjbqSVXXVPIRBY6942-21-90 05:01:00 Test Item Value Reference Range Interpretation Comments Basophils (test code = 0.8 See_Comment [Aut omated message] The Basophils) system which ge nerated this result tra nsmitted reference range : <=1.0. The reference r kat was not used to int erpret this result as normal/abnormal . [place] 440272-07-21 05:01:00 Test Item Value Reference Range Interpretation Comments Neutrophils # (test code = Neutrophils 2.5 1.5-8.1 #) [facility] CenterVpouaftDBVTEAYIJK2854-99-22 05:01:00 Test Item Value Reference Range Interpretation Comments Lymphocytes # (test code = Lymphocytes 3.2 1.0-5.5 #) [facility]EsaxeyoQWVOWPKEFM6108-40-81 05:01:00 Test Item Value Reference Range Interpretation Comments Monocytes # (test code 0.5 See_Comment [Aut omated message] The = Monocytes #) system which generated this result tra nsmitted reference range : <=0.8. The reference r kat was not used to int erpret this result as normal/abnormal . [facility] InstituteTaqskkmKRSRWHNWLW6561-93-70 05:01:00 Test Item Value Reference Range Interpretation Comments Eosinophils # (test code 0.1 See_Comment [A utomated message] The = Eosinophils #) system whic h generated this result tra nsmitted reference range : <=0.5. The reference r kat was not used to int erpret this result as normal/abnormal . [facility] [id number] 05:01:00 Test Item Value Reference Range Interpretation Comments HS Troponin I (test code = HS Troponin 5 I) [facility] [id number] 05:01:00 Test Item Value Reference Range Interpretation Comments Glucose Lvl (test code = Glucose Lvl) 96 70-99 [facility] HospitalBioc[facility] [id number] 05:01:00 Test Item Value Reference Range Interpretation Comments BUN (test code = BUN) 16 7-22 [facility]2022-07-21 05:01:00 Test Item Value Reference Range Interpretation Comments Creatinine Lvl (test code = Creatinine 0.73 0.50-1.40 Lvl) [facility] [id number] 05:01:00 Test Item Value Reference Range Interpretation Comments Sodium Lvl (test code = Sodium Lvl) 141 135-145 [facility] [id number] 05:01:00 Test Item Value Reference Range Interpretation Comments Potassium Lvl (test code = Potassium 3.6 3.5-5.1 Lvl) [facility]Bi[facility] [id number] 05:01:00 Test Item Value Reference Range Interpretation Comments Chloride Lvl (test code = Chloride Lvl) 110 95-109 [facility] [id number] 05:01:00 Test Item Value Reference Range Interpretation Comments CO2 (test code = CO2) 25 24-32 [facility] [id number] 05:01:00 Test Item Value Reference Range Interpretation Comments Calcium Lvl (test code = Calcium Lvl) 9.3 8.5-10.5 [facility] [id number] 05:01:00 Test Item Value Reference Range Interpretation Comments Total Protein (test code = Total 7.2 6.4-8.4 Protein) [place] 656902-07-21 05:01:00 Test Item Value Reference Range Interpretation Comments Albumin Lvl (test code = Albumin Lvl) 3.7 3.5-5.0 [facility] [id number] 05:01:00 Test Item Value Reference Range Interpretation Comments ALT (test code = ALT) 59 See_Comment [Auto mated message] The system which ge nerated this result transmit arvind reference range : <=65. The reference range was not used to interpr et this result as mario l/abnormal. [facility] [id number] 05:01:00 Test Item Value Reference Range Interpretation Comments AST (test code = AST) 24 See_Comment [Auto mated message] The system which ge nerated this result transmit arvind reference range : <=37. The reference range was not used to interpr et this result as mario l/abnormal. [facility] [id number] 05:01:00 Test Item Value Reference Range Interpretation Comments Alk Phos (test code = Alk Phos) 60 39-136 [facility] [id number] 05:01:00 Test Item Value Reference Range Interpretation Comments Bili Total (test code = Bili Total) 0.2 0.2-1.3 [facility] [id number] 05:01:00 Test Item Value Reference Range Interpretation Comments AGAP (test code = AGAP) 9.6 10.0-20.0 [facility] ShareThe [id number] 05:01:00 Test Item Value Reference Range Interpretation Comments B/C Ratio (test code = B/C Ratio) 22 1 6-25 [facility] [id number] 05:01:00 Test Item Value Reference Range Interpretation Comments Globulin (test code = Globulin) 3.5 2.7-4.2 [facility] Share[employer] [id number] 05:01:00 Test Item Value Reference Range Interpretation Comments A/G Ratio (test code = A/G Ratio) 1.1 1 0.7-1.6 [facility]2022-07-21 05:01:00 Test Item Value Reference Range Interpretation Comments eGFR (test code = eGFR) 112 [facility] CenterLxjdrjjRHUFQTVMEM0455-98-01 05:01:00 Test Item Value Reference Range Interpretation Comments WBC (test code = WBC) 6.4 3.7-10.4 [facility] CenterRfupnlwRBPMEEEUMT5773-62-61 05:01:00 Test Item Value Reference Range Interpretation Comments RBC (test code = RBC) 5.28 4.20-5.40 [facility] CenterJtovvzlDBROHZCEVT4935-03-47 05:01:00 Test Item Value Reference Range Interpretation Comments Hgb (test code = Hgb) 14.1 12.0-16.0 [place] 440272-07-21 05:01:00 Test Item Value Reference Range Interpretation Comments Hct (test code = Hct) 43.0 36.0-48.0 [facility] CenterDxzekofCZNDAJNFLB2211-20-11 05:01:00 Test Item Value Reference Range Interpretation Comments MCV (test code = MCV) 81.4 80.0-98.0 [place] 440272-07-21 05:01:00 Test Item Value Reference Range Interpretation Comments MCH (test code = MCH) 26.7 pg 27.0-31.0 [facility] CenterVgdqmpaGDFDYQLCFP6428-28-56 05:01:00 Test Item Value Reference Range Interpretation Comments MCHC (test code = MCHC) 32.9 32.0-36.0 [facility] CenterTqaibqaQSBPDJTJLG4520-04-32 05:01:00 Test Item Value Reference Range Interpretation Comments RDW (test code = RDW) 14.1 11.5-14.5 [facility] CenterVcnazoxZFPZOSQRGF7987-00-46 05:01:00 Test Item Value Reference Range Interpretation Comments Platelet (test code = Platelet) 237 133-450 [facility] CenterHzvzexzWKCYCLGIVS5650-80-26 05:01:00 Test Item Value Reference Range Interpretation Comments MPV (test code = MPV) 9.1 7.4-10.4 [facility] CenterOupisluHFDUUNXWUL1650-62-55 05:01:00 Test Item Value Reference Range Interpretation Comments PT (test code = PT) 12.4 s 12.0-14.7 [facility] CenterYpgkhibLCIPKCRCNS5896-65-12 05:01:00 Test Item Value Reference Range Interpretation Comments INR (test code = INR) 0.93 1 0.85-1.17 [facility] CenterKrrmtwxQKDGVRYAUW9192-96-69 05:01:00 Test Item Value Reference Range Interpretation Comments PTT (test code = PTT) 26.5 s 22.9-35.8 [place] 440272-07-21 05:01:00 Test Item Value Reference Range Interpretation Comments Segs (test code = Segs) 40.0 45.0-75.0 [place] 440272-07-21 05:01:00 Test Item Value Reference Range Interpretation Comments Lymphocytes (test code = Lymphocytes) 49.7 20.0-40.0 [place] 440272-07-21 05:01:00 Test Item Value Reference Range Interpretation Comments Monocytes (test code = Monocytes) 8.5 2.0-12.0 [facility] CenterUuohhtuJWUYMFGBWG9058-88-25 05:01:00 Test Item Value Reference Range Interpretation Comments Eosinophils (test code = 1.0 See_Comment [A utomated message] The Eosinophils) system which ge nerated this result tra nsmitted reference range : <=4.0. The reference r kat was not used to int erpret this result as normal/abnormal . [facility] CenterHcdihlpUVOLSBKZGA1969-58-69 05:01:00 Test Item Value Reference Range Interpretation Comments Basophils (test code = 0.8 See_Comment [Aut omated message] The Basophils) system which ge nerated this result tra nsmitted reference range : <=1.0. The reference r kat was not used to int erpret this result as normal/abnormal . [facility] CenterRuquuimYTXUVVFOMV7759-64-90 05:01:00 Test Item Value Reference Range Interpretation Comments Neutrophils # (test code = Neutrophils 2.5 1.5-8.1 #) [place] 440272-07-21 05:01:00 Test Item Value Reference Range Interpretation Comments Lymphocytes # (test code = Lymphocytes 3.2 1.0-5.5 #) [facility] CenterEhwmwvpMQJJDMYAVW4009-54-15 05:01:00 Test Item Value Reference Range Interpretation Comments Monocytes # (test code 0.5 See_Comment [Aut omated message] The = Monocytes #) system which generated this result tra nsmitted reference range : <=0.8. The reference r kat was not used to int erpret this result as normal/abnormal . [facility]RszobuwUPGMLBXSYX0648-14-48 05:01:00 Test Item Value Reference Range Interpretation Comments Eosinophils # (test code 0.1 See_Comment [A utomated message] The = Eosinophils #) system whic h generated this result tra nsmitted reference range : <=0.5. The reference r kat was not used to int erpret this result as normal/abnormal . [facility] HospitalCARD[facility] [id number] 05:01:00 Test Item Value Reference Range Interpretation Comments HS Troponin I (test code = HS Troponin 5 I) [facility] [id number] 05:01:00 Test Item Value Reference Range Interpretation Comments Glucose Lvl (test code = Glucose Lvl) 96 70-99 [facility] [id number] 05:01:00 Test Item Value Reference Range Interpretation Comments BUN (test code = BUN) 16 7-22 [facility] [id number] 05:01:00 Test Item Value Reference Range Interpretation Comments Creatinine Lvl (test code = Creatinine 0.73 0.50-1.40 Lvl) [facility] [id number] 05:01:00 Test Item Value Reference Range Interpretation Comments Sodium Lvl (test code = Sodium Lvl) 141 135-145 [facility] [id number] 05:01:00 Test Item Value Reference Range Interpretation Comments Potassium Lvl (test code = Potassium 3.6 3.5-5.1 Lvl) [facility] [id number] 05:01:00 Test Item Value Reference Range Interpretation Comments Chloride Lvl (test code = Chloride Lvl) 110 95-109 [facility] [id number] 05:01:00 Test Item Value Reference Range Interpretation Comments CO2 (test code = CO2) 25 24-32 [facility]Bioc[facility] [id number] 05:01:00 Test Item Value Reference Range Interpretation Comments Calcium Lvl (test code = Calcium Lvl) 9.3 8.5-10.5 [facility] [id number] 05:01:00 Test Item Value Reference Range Interpretation Comments Total Protein (test code = Total 7.2 6.4-8.4 Protein) [facility]2022-07-21 05:01:00 Test Item Value Reference Range Interpretation Comments Albumin Lvl (test code = Albumin Lvl) 3.7 3.5-5.0 [place] 656902-07-21 05:01:00 Test Item Value Reference Range Interpretation Comments ALT (test code = ALT) 59 See_Comment [Auto mated message] The system which ge nerated this result transmit arvind reference range : <=65. The reference range was not used to interpr et this result as mario l/abnormal. [facility] [id number] 05:01:00 Test Item Value Reference Range Interpretation Comments AST (test code = AST) 24 See_Comment [Auto mated message] The system which ge nerated this result transmit arvind reference range : <=37. The reference range was not used to interpr et this result as mario l/abnormal. [facility] [id number] 05:01:00 Test Item Value Reference Range Interpretation Comments Alk Phos (test code = Alk Phos) 60 39-136 [facility] [id number] 05:01:00 Test Item Value Reference Range Interpretation Comments Bili Total (test code = Bili Total) 0.2 0.2-1.3 [facility]2022-07-21 05:01:00 Test Item Value Reference Range Interpretation Comments AGAP (test code = AGAP) 9.6 10.0-20.0 [facility] [id number] 05:01:00 Test Item Value Reference Range Interpretation Comments B/C Ratio (test code = B/C Ratio) 22 1 6-25 [facility] [id number] 05:01:00 Test Item Value Reference Range Interpretation Comments Globulin (test code = Globulin) 3.5 2.7-4.2 [facility] [id number] 05:01:00 Test Item Value Reference Range Interpretation Comments A/G Ratio (test code = A/G Ratio) 1.1 1 0.7-1.6 [facility]2022-07-21 05:01:00 Test Item Value Reference Range Interpretation Comments eGFR (test code = eGFR) 112 [facility] CenterHsfmiirCBXYCNNRSG2140-54-59 05:01:00 Test Item Value Reference Range Interpretation Comments WBC (test code = WBC) 6.4 3.7-10.4 [facility] CenterRzofdgtZNBJHVQCYZ1232-61-87 05:01:00 Test Item Value Reference Range Interpretation Comments RBC (test code = RBC) 5.28 4.20-5.40 [facility] CenterXjhyvjfMKZBWUVMYV6282-57-95 05:01:00 Test Item Value Reference Range Interpretation Comments Hgb (test code = Hgb) 14.1 12.0-16.0 [facility] CenterJjhlrmzQFOJQFYRUP3614-37-88 05:01:00 Test Item Value Reference Range Interpretation Comments Hct (test code = Hct) 43.0 36.0-48.0 [facility] CenterLryghwhXYDTOPGDTR8797-03-98 05:01:00 Test Item Value Reference Range Interpretation Comments MCV (test code = MCV) 81.4 80.0-98.0 [facility] CenterSvhphyzMYKIRENOAA4892-10-72 05:01:00 Test Item Value Reference Range Interpretation Comments MCH (test code = MCH) 26.7 pg 27.0-31.0 [facility] CenterJornbzhDMEJRBAGOE4787-76-63 05:01:00 Test Item Value Reference Range Interpretation Comments MCHC (test code = MCHC) 32.9 32.0-36.0 [facility] CenterMlloyebMUKEOXMIDE4385-31-41 05:01:00 Test Item Value Reference Range Interpretation Comments RDW (test code = RDW) 14.1 11.5-14.5 [facility] CenterIhquviqGDWPJPNNRK8740-25-07 05:01:00 Test Item Value Reference Range Interpretation Comments Platelet (test code = Platelet) 237 133-450 [facility] CenterAyvbzldWJILCLXIPG0264-24-41 05:01:00 Test Item Value Reference Range Interpretation Comments MPV (test code = MPV) 9.1 7.4-10.4 [facility] CenterPndrvonMWHQTPRXCO3037-18-91 05:01:00 Test Item Value Reference Range Interpretation Comments PT (test code = PT) 12.4 s 12.0-14.7 [facility] CenterSallftzWTOPKTPEKL5631-99-72 05:01:00 Test Item Value Reference Range Interpretation Comments INR (test code = INR) 0.93 1 0.85-1.17 [facility] CenterUmghvgnGKAEVLQCPW2754-63-04 05:01:00 Test Item Value Reference Range Interpretation Comments PTT (test code = PTT) 26.5 s 22.9-35.8 [place] 440272-07-21 05:01:00 Test Item Value Reference Range Interpretation Comments Segs (test code = Segs) 40.0 45.0-75.0 [place] 440272-07-21 05:01:00 Test Item Value Reference Range Interpretation Comments Lymphocytes (test code = Lymphocytes) 49.7 20.0-40.0 [place] 440272-07-21 05:01:00 Test Item Value Reference Range Interpretation Comments Monocytes (test code = Monocytes) 8.5 2.0-12.0 [place] 440272-07-21 05:01:00 Test Item Value Reference Range Interpretation Comments Eosinophils (test code = 1.0 See_Comment [A utomated message] The Eosinophils) system which ge nerated this result tra nsmitted reference range : <=4.0. The reference r kat was not used to int erpret this result as normal/abnormal . [facility] CenterPtxmsbdYKTUYAWGTP4295-65-19 05:01:00 Test Item Value Reference Range Interpretation Comments Basophils (test code = 0.8 See_Comment [Aut omated message] The Basophils) system which ge nerated this result tra nsmitted reference range : <=1.0. The reference r kat was not used to int erpret this result as normal/abnormal . [facility] CenterQwxlpfqMPHLGGOURQ1727-99-56 05:01:00 Test Item Value Reference Range Interpretation Comments Neutrophils # (test code = Neutrophils 2.5 1.5-8.1 #) [facility] CenterMcbgfieHRMJZIGICA7050-82-02 05:01:00 Test Item Value Reference Range Interpretation Comments Lymphocytes # (test code = Lymphocytes 3.2 1.0-5.5 #) [place] 440272-07-21 05:01:00 Test Item Value Reference Range Interpretation Comments Monocytes # (test code 0.5 See_Comment [Aut omated message] The = Monocytes #) system which generated this result tra nsmitted reference range : <=0.8. The reference r kat was not used to int erpret this result as normal/abnormal . [place] 440272-07-21 05:01:00 Test Item Value Reference Range Interpretation Comments Eosinophils # (test code 0.1 See_Comment [A utomated message] The = Eosinophils #) system whic h generated this result tra nsmitted reference range : <=0.5. The reference r kat was not used to int erpret this result as normal/abnormal . [facility] [id number] 05:01:00 Test Item Value Reference Range Interpretation Comments HS Troponin I (test code = HS Troponin 5 I) [facility] [id number] 05:01:00 Test Item Value Reference Range Interpretation Comments Glucose Lvl (test code = Glucose Lvl) 96 70-99 [facility]2022-07-21 05:01:00 Test Item Value Reference Range Interpretation Comments BUN (test code = BUN) 16 7-22 [facility]2022-07-21 05:01:00 Test Item Value Reference Range Interpretation Comments Creatinine Lvl (test code = Creatinine 0.73 0.50-1.40 Lvl) [facility]2022-07-21 05:01:00 Test Item Value Reference Range Interpretation Comments Sodium Lvl (test code = Sodium Lvl) 141 135-145 [facility] [id number] 05:01:00 Test Item Value Reference Range Interpretation Comments Potassium Lvl (test code = Potassium 3.6 3.5-5.1 Lvl) [facility] [id number] 05:01:00 Test Item Value Reference Range Interpretation Comments Chloride Lvl (test code = Chloride Lvl) 110 95-109 [facility]Bi[facility] [id number] 05:01:00 Test Item Value Reference Range Interpretation Comments CO2 (test code = CO2) 25 24-32 [facility] [id number] 05:01:00 Test Item Value Reference Range Interpretation Comments Calcium Lvl (test code = Calcium Lvl) 9.3 8.5-10.5 [facility] [id number] 05:01:00 Test Item Value Reference Range Interpretation Comments Total Protein (test code = Total 7.2 6.4-8.4 Protein) [facility]2022-07-21 05:01:00 Test Item Value Reference Range Interpretation Comments Albumin Lvl (test code = Albumin Lvl) 3.7 3.5-5.0 [facility] [id number] 05:01:00 Test Item Value Reference Range Interpretation Comments ALT (test code = ALT) 59 See_Comment [Auto mated message] The system which ge nerated this result transmit arvind reference range : <=65. The reference range was not used to interpr et this result as mario l/abnormal. [place] 656902-07-21 05:01:00 Test Item Value Reference Range Interpretation Comments AST (test code = AST) 24 See_Comment [Auto mated message] The system which ge nerated this result transmit arvind reference range : <=37. The reference range was not used to interpr et this result as mario l/abnormal. [facility] [id number] 05:01:00 Test Item Value Reference Range Interpretation Comments Alk Phos (test code = Alk Phos) 60 39-136 [place] 656902-07-21 05:01:00 Test Item Value Reference Range Interpretation Comments Bili Total (test code = Bili Total) 0.2 0.2-1.3 [place] 656902-07-21 05:01:00 Test Item Value Reference Range Interpretation Comments AGAP (test code = AGAP) 9.6 10.0-20.0 [place] 656902-07-21 05:01:00 Test Item Value Reference Range Interpretation Comments B/C Ratio (test code = B/C Ratio) 22 1 6-25 [place] 656902-07-21 05:01:00 Test Item Value Reference Range Interpretation Comments Globulin (test code = Globulin) 3.5 2.7-4.2 [place] 656902-07-21 05:01:00 Test Item Value Reference Range Interpretation Comments A/G Ratio (test code = A/G Ratio) 1.1 1 0.7-1.6 [place] 656902-07-21 05:01:00 Test Item Value Reference Range Interpretation Comments eGFR (test code = eGFR) 112 [place] 440272-07-21 05:01:00 Test Item Value Reference Range Interpretation Comments WBC (test code = WBC) 6.4 3.7-10.4 [place] 440272-07-21 05:01:00 Test Item Value Reference Range Interpretation Comments RBC (test code = RBC) 5.28 4.20-5.40 [facility] CenterNzurrhdRUAROLHPRL3642-75-69 05:01:00 Test Item Value Reference Range Interpretation Comments Hgb (test code = Hgb) 14.1 12.0-16.0 [facility] CenterWwxyyutGAWODKXKYU0573-68-37 05:01:00 Test Item Value Reference Range Interpretation Comments Hct (test code = Hct) 43.0 36.0-48.0 [facility] CenterQzaeokxWHRXKHQRLW5042-81-11 05:01:00 Test Item Value Reference Range Interpretation Comments MCV (test code = MCV) 81.4 80.0-98.0 [facility] CenterKusibeyPIULOUQYQT4988-03-88 05:01:00 Test Item Value Reference Range Interpretation Comments MCH (test code = MCH) 26.7 pg 27.0-31.0 [facility] CenterGjqjxtcDBOOJFLIBM4359-78-14 05:01:00 Test Item Value Reference Range Interpretation Comments MCHC (test code = MCHC) 32.9 32.0-36.0 [facility] CenterKdwyrmjYGKNYFXGTL1109-64-93 05:01:00 Test Item Value Reference Range Interpretation Comments RDW (test code = RDW) 14.1 11.5-14.5 [facility] CenterRedjzhlPRRYYZETLG0170-84-26 05:01:00 Test Item Value Reference Range Interpretation Comments Platelet (test code = Platelet) 237 133-450 [facility] CenterVdfmmgoSGNJDDQTWS5033-58-46 05:01:00 Test Item Value Reference Range Interpretation Comments MPV (test code = MPV) 9.1 7.4-10.4 [facility] CenterQcanwnzFEKIRPESFS5680-34-15 05:01:00 Test Item Value Reference Range Interpretation Comments PT (test code = PT) 12.4 s 12.0-14.7 [facility] CenterSzxpjqdETDUNSNSAX9541-47-93 05:01:00 Test Item Value Reference Range Interpretation Comments INR (test code = INR) 0.93 1 0.85-1.17 [facility] CenterBftwfglOMIVLZUNYT4829-56-54 05:01:00 Test Item Value Reference Range Interpretation Comments PTT (test code = PTT) 26.5 s 22.9-35.8 [facility] CenterZfgjjovUSZXIHTORT4078-18-04 05:01:00 Test Item Value Reference Range Interpretation Comments Segs (test code = Segs) 40.0 45.0-75.0 [facility] CenterJhowspjVFMWGUGRSJ4612-86-31 05:01:00 Test Item Value Reference Range Interpretation Comments Lymphocytes (test code = Lymphocytes) 49.7 20.0-40.0 [facility] CenterClemqukHOLNOJJMPC6004-60-07 05:01:00 Test Item Value Reference Range Interpretation Comments Monocytes (test code = Monocytes) 8.5 2.0-12.0 [facility] CenterMasszjvIXROASHRYH8069-66-35 05:01:00 Test Item Value Reference Range Interpretation Comments Eosinophils (test code = 1.0 See_Comment [A utomated message] The Eosinophils) system which ge nerated this result tra nsmitted reference range : <=4.0. The reference r kat was not used to int erpret this result as normal/abnormal . [facility] CenterTduvlauQINAENLESH3510-18-36 05:01:00 Test Item Value Reference Range Interpretation Comments Basophils (test code = 0.8 See_Comment [Aut omated message] The Basophils) system which ge nerated this result tra nsmitted reference range : <=1.0. The reference r kat was not used to int erpret this result as normal/abnormal . [facility] CenterOstfmhsMLDQYZCBML5243-18-69 05:01:00 Test Item Value Reference Range Interpretation Comments Neutrophils # (test code = Neutrophils 2.5 1.5-8.1 #) [facility] CenterEgkfngyTVXRCFRGXT3997-18-59 05:01:00 Test Item Value Reference Range Interpretation Comments Lymphocytes # (test code = Lymphocytes 3.2 1.0-5.5 #) [facility] CenterUslvbkxRZDPYJMHWR1220-27-00 05:01:00 Test Item Value Reference Range Interpretation Comments Monocytes # (test code 0.5 See_Comment [Aut omated message] The = Monocytes #) system which generated this result tra nsmitted reference range : <=0.8. The reference r kat was not used to int erpret this result as normal/abnormal . [facility] CenterPxslojzEMRSJFFXMN0844-75-20 05:01:00 Test Item Value Reference Range Interpretation Comments Eosinophils # (test code 0.1 See_Comment [A utomated message] The = Eosinophils #) system whic h generated this result tra nsmitted reference range : <=0.5. The reference r kat was not used to int erpret this result as normal/abnormal . [facility]IV[facility]MUJ[facility] 02:18:00 Test Item Value Reference Range Interpretation Comments Coronavirus (COVID-19) Detected MARLYN (test code = 1*ABN*(03/13/22 9:18 Coronavirus (COVID-19) PM) MARLYN) [facility]KawcuomFGRVTGBKVD2861-46-94 02:18:00 Test Item Value Reference Range Interpretation Comments Coronavirus (COVID-19) Detected MARLYN (test code = 1*ABN*(03/13/22 9:18 Coronavirus (COVID-19) PM) MARLYN) [facility]RuvcgfxZHCEHUYYTB9276-43-46 02:18:00 Test Item Value Reference Range Interpretation Comments Coronavirus (COVID-19) Detected MARLYN (test code = 1*ABN*(03/13/22 9:18 Coronavirus (COVID-19) PM) MARLYN) [place] [address]-07-16 02:18:00 Test Item Value Reference Range Interpretation Comments Coronavirus (COVID-19) Detected MARLYN (test code = 1*ABN*(03/13/22 9:18 Coronavirus (COVID-19) PM) MARLYN) [facility]ClcsyhgOXLVFWXQBP7113-37-29 02:18:00 Test Item Value Reference Range Interpretation Comments Coronavirus (COVID-19) Detected MARLYN (test code = 1*ABN*(03/13/22 9:18 Coronavirus (COVID-19) PM) MARLYN) [facility] HendersonZhglqsbURZRJISANK7342-82-77 02:18:00 Test Item Value Reference Range Interpretation Comments Coronavirus (COVID-19) Detected MARLYN (test code = 1*ABN*(03/13/22 9:18 Coronavirus (COVID-19) PM) MARLYN) [facility] HendersonZfsbiyqYRLPKVVOLC4154-78-25 02:18:00 Test Item Value Reference Range Interpretation Comments Coronavirus (COVID-19) Detected MARLYN (test code = 1*ABN*(03/13/22 9:18 Coronavirus (COVID-19) PM) MARLYN) [place] [address]-07-16 02:18:00 Test Item Value Reference Range Interpretation Comments Coronavirus (COVID-19) Detected MARLYN (test code = 1*ABN*(03/13/22 9:18 Coronavirus (COVID-19) PM) MARLYN) [place] [address]-07-16 02:18:00 Test Item Value Reference Range Interpretation Comments Coronavirus (COVID-19) Detected MARLYN (test code = 1*ABN*(03/13/22 9:18 Coronavirus (COVID-19) PM) MARLYN) [place] [address]-07-16 02:18:00 Test Item Value Reference Range Interpretation Comments Coronavirus (COVID-19) Detected MARLYN (test code = 1*ABN*(03/13/22 9:18 Coronavirus (COVID-19) PM) MARLYN) [place] [address]-07-16 02:18:00 Test Item Value Reference Range Interpretation Comments Coronavirus (COVID-19) Detected MARLYN (test code = 1*ABN*(03/13/22 9:18 Coronavirus (COVID-19) PM) MARLYN) [place] [address]-07-16 02:18:00 Test Item Value Reference Range Interpretation Comments Coronavirus (COVID-19) Detected MARLYN (test code = 1*ABN*(03/13/22 9:18 Coronavirus (COVID-19) PM) MARLYN) [place] [address]-07-16 02:18:00 Test Item Value Reference Range Interpretation Comments Coronavirus (COVID-19) Detected MARLYN (test code = 1*ABN*(03/13/22 9:18 Coronavirus (COVID-19) PM) MARLYN) [place] [address]-07-16 02:18:00 Test Item Value Reference Range Interpretation Comments Coronavirus (COVID-19) Detected MARLYN (test code = 1*ABN*(03/13/22 9:18 Coronavirus (COVID-19) PM) MARLYN) [place] [address]-07-16 02:18:00 Test Item Value Reference Range Interpretation Comments Coronavirus (COVID-19) Detected MARLYN (test code = 1*ABN*(03/13/22 9:18 Coronavirus (COVID-19) PM) MARLYN) [place] [address]-07-16 02:18:00 Test Item Value Reference Range Interpretation Comments Coronavirus (COVID-19) Detected MARLYN (test code = 1*ABN*(03/13/22 9:18 Coronavirus (COVID-19) PM) MARLYN) [place] [address]-07-16 02:18:00 Test Item Value Reference Range Interpretation Comments Coronavirus (COVID-19) Detected MARLYN (test code = 1*ABN*(03/13/22 9:18 Coronavirus (COVID-19) PM) MARLYN) [facility]CuswnfaXKEQYZLQJN0878-44-90 02:18:00 Test Item Value Reference Range Interpretation Comments Coronavirus (COVID-19) Detected MARLYN (test code = 1*ABN*(03/13/22 9:18 Coronavirus (COVID-19) PM) MARLYN) [facility]IwcqiwxCRUJNRYPRG1621-48-46 02:18:00 Test Item Value Reference Range Interpretation Comments Coronavirus (COVID-19) Detected MARLYN (test code = 1*ABN*(03/13/22 9:18 Coronavirus (COVID-19) PM) MARLYN) [facility] HendersonUizpxpgDLVVJEKQOJ8225-79-50 02:18:00 Test Item Value Reference Range Interpretation Comments Coronavirus (COVID-19) Detected MARLYN (test code = 1*ABN*(03/13/22 9:18 Coronavirus (COVID-19) PM) MARLYN) [facility] HendersonJqqnkpgZKBNJZVAAN7724-36-51 02:18:00 Test Item Value Reference Range Interpretation Comments Coronavirus (COVID-19) Detected MARLYN (test code = 1*ABN*(03/13/22 9:18 Coronavirus (COVID-19) PM) MARLYN) [facility] MARLYN+kyrah9448-90-30 03:21:53 Test Item Value Reference Range Interpretation Comments Symptomatic as defined by CDC? (test code = 90062-4) Employed in No Healthcare? (test code = 27119-8) Resident in a No congregate care setting (including nursing homes, residential care for people with intellectual and developmental disabilities, psychiatric treatment facilities, group homes, board and care homes, homeless longterm, foster care or other): (test code = 48589-2) ? (test code = No 78044-8) SARS-CoV-2 RNA Nph Ql NOT DETECTED Not Detected The novel MARLYN+probe (test code = carolyne ramirez 48670-0) (SARS-CoV-2) ta rget nucleic acids a re not detected. COMMENT: The [employer] SARS-CoV-2 real-time RT-PCR based diagnostic test intended for the qualitative detection of SARS-CoV-2 viral RNA in a nasopharyngeal swab during acute phase of infection. This test was developed and its performance characteristics have been determined by the [facility]. This test has not been cleared or approved by the FDA. This testsystem has been authorized by the FDA under an Emergency Use Authorization (EUA). This test has beenvalidated in accordance with the FDA\\[id number]\\s Guidance document \\XJ5982P\\Policy for Coronavirus Disease-2019 Tests During the Public Health Emergency\\OV3325K\\ (Revised December 2019) and is used for clinical purposes. It should not be regarded as investigational or for research\\NF5954S\\Detected\\[id number]\\ results are indicative of the presence of the identified virus, but do not rule out bacterial infection or co-infection with other pathogens not detected by the test. Clinical correlation with patient his tory and other diagnostic information is necessary to determine patient infection status. \\TJ2149V\\Not Detected\\[id number]\\ results do not preclude SARS-CoV-2 and should not be used as the sole basis for treatment or other patient management decisions. Negative results must be combined with clinical observations, patient history, and/or epidemiological information.This laboratory is certified under the Clinical Laboratory Improvement Amendments (CLIA) as qualified to perform high complexity clinical laboratory testing.[facility] SARS-CoV-2 ORF1ab Resp Ql MARLYN+kowcy8695-55-92 01:19:53 Test Item Value Reference Range Interpretation Comments Symptomatic as defined No by CDC? (test code = 71525-9) Hospitalized? (test No code = 17674-6) ICU? (test code = No 86189-5) Employed in No Healthcare? (test code = 69412-8) Resident in a No congregate care setting (including nursing homes, residential care for people with intellectual and developmental disabilities, psychiatric treatment facilities, group homes, board and care homes, homeless longterm, foster care or other): (test code = 80243-4) ? (test code = No 17760-7) SARS-CoV-2 ORF1ab Resp NOT DETECTED Not Detected INTER PRETATION: No Ql MARLYN+probe (test detectabl e levels code = 13533-4) of SARS-CoV- 2 Coronavirus (COVID-19) were present [...] n with SARS-CoV-2 Coronavirus (COVID-19). COMMENT: This [place] SARS-CoV-2 molecular diagnostic assay utilizes [employer] Mediated Amplification (TMA) technology to rapidly detect the SARS-CoV-2 (COVID-19) virus from respiratory samples. In accordance with the FDA's guidance document "Policy for Diagnostic Tests for Coronavirus Disease- 2019 during the Public Health Emergency", this test was developed, and its performance characteristics were verified by the [facility] molecular diagnostics laboratory and is authorized for [...] actual/normal in Platelet poor plasma by Coagulation oxvlh1383-36-25 00:00:00 Test Item Value Reference Range Interpretation Comments fact. VIII act. (test code = fact. VIII 106 act.) [facility] Medical[facility] Willebrand factor (vWf).activity [Units/volume] in Platelet poor plasma by Yvvmwixjptd2920-35-24 00:00:00 Test Item Value Reference Range Interpretation Comments ristocetin cofactor (test code = 57 ristocetin cofactor) [facility] MedicalaPTT in Platelet poor plasma by Coagulation uqqdt0615-77-71 00:00:00 Test Item Value Reference Range Interpretation Comments PTT (test code = PTT) 28.5 sec 23.6-31.6 [facility] MedicalAndrostenedione [Mass/volume] in Serum or Fmdwef6546-67-96 00:00:00 Test Item Value Reference Range Interpretation Comments androstenedione (1) (test code = 20 NG/dL androstenedione (1)) [facility] MedicalPT/[id number] 00:00:00 Test Item Value Reference Range Interpretation Comments INR (test code = INR) 0.96 0.80-1.06 PT (test code = PT) 10.9 sec 9.1-11.9 [facility] Rowfyea65-Qiyjmheeuiiwuowzzre [Mass/volume] in Serum or [id number] 00:00:00 Test Item Value Reference Range Interpretation Comments 17-hydroxyprogesterone (test code = <10 see below 17-hydroxyprogesterone) [facility] Medical[facility] in Blood by Coagulation mbylj7116-98-54 00:00:00 Test Item Value Reference Range Interpretation Comments P.T.T. (test code = P.T.T.) 30.9 [facility]omat[facility] and Neisseria gonorrhoeae rRNA panel - Specimen by MARLYN with probe cilqvcqjq8614-91-66 00:00:00 Test Item Value Reference Range Interpretation Comments aptima combo 2 swab (CT) (test code = CT neg negative aptima combo 2 swab (CT)) aptima combo 2 swab (GC) (test code = GC neg negative aptima combo 2 swab (GC)) [facility] Medicalaptima swab vaginitis 2021-11-26 00:00:00 Test Item Value Reference Range Interpretation Comments bacterial vaginosis (test code = bv neg negative bacterial vaginosis) warner species (test code = C. spp neg negative warner species) warner glabrata (test code = C. gla neg negative warner glabrata) trichomonas vaginalis (CV/TV) trich pos negative A (test code = trichomonas vaginalis (CV/TV)) [facility] - Blood by Automated iwjgg4595-62-20 00:00:00 Test Item Value Reference Range Interpretation [...] 0.0-0.2 [facility] MedicalThyrotropin [Units/volume] in Serum or Odmruz7850-06-10 00:00:00 Test Item Value Reference Range Interpretation Comments TSH (test code = TSH) 2.010 uIU/mL 0.178-4.530 [facility] MedicalComprehensive metabolic 2000 panel - Serum or Tgpvcn4591-04-70 00:00:00 Test Item Value Reference Range Interpretation [...] 124.483 >60.000 (test code = eGFR mL/min/1.73A? burkinan) [facility] MedicalTestosterone [Mass/volume] in Serum or Gzhnop0005-48-81 00:00:00 Test Item Value Reference Range Interpretation Comments testosterone (test code = testosterone) < 2.5 8.4-48.1 L [facility] MedicalDehydroepiandrosterone sulfate (DHEA-S) [Mass/volume] in Serum or Kjbqpc1770-30-76 00:00:00 Test Item Value Reference Range Interpretation Comments DHEA-S (test code = DHEA-S) 43.1 ug/dL 98.8-340.0 L [facility] MedicalFollitropin and Lutropin panel [Units/volume] - Serum or Plasma 2021-11-26 00:00:00 Test Item Value Reference Range Interpretation Comments LH (test code = LH) 2.9 mIU/mL FSH (test code = FSH) 6.8 mIU/mL [facility] MedicalProlactin [Mass/volume] in Serum or Bagxqe0227-13-68 00:00:00 Test Item Value Reference Range Interpretation Comments prolactin (test code = prolactin) 115.0 NG/mL 4.8-23.3 H [facility] MedicalLipid 1996 panel - Serum or [id number] 00:00:00 Test Item Value Reference Range Interpretation [...] Serum or Plasma (test code = 2089-1) [facility] HospitalClearServeI gzdke3390-31-92 00:00:00 Test Item Value Reference Range Interpretation Comments HPV thinprep (test code = HPV negative negative thinprep) [facility] Gaosouyipap, [id number] 00:00:00 Test Item Value Reference Range Interpretation Comments LMP date: (test code = 09/09/2021 LMP date:) Pap, liquid-based nilm nilm (test code = Pap, liquid-based) source (liquid-based cervical (which cytology): (test code includes endocervical) = source (liquid-based cytology):) [facility]Sxm[facility] Technology KSFER4445-05-13 21:13:00 Test Item Value Reference Range Interpretation Comments Glucose Lvl (test code = Glucose Lvl) 89 70-99 [facility] [employer] [id number] 21:13:00 Test Item Value Reference Range Interpretation Comments BUN (test code = BUN) 8 7-22 [facility] [employer] [id number] 21:13:00 Test Item Value Reference Range Interpretation Comments Creatinine Lvl (test code = Creatinine 0.55 0.50-1.40 Lvl) [facility] [employer] [id number] 21:13:00 Test Item Value Reference Range Interpretation Comments Sodium Lvl (test code = Sodium Lvl) 140 135-145 [facility] [employer] [id number] 21:13:00 Test Item Value Reference Range Interpretation Comments Potassium Lvl (test code = Potassium 3.5 3.5-5.1 Lvl) [facility] [employer] CCRDL5230-14-17 21:13:00 Test Item Value Reference Range Interpretation Comments Chloride Lvl (test code = Chloride Lvl) 109 95-109 [facility] [employer] QWTUD4802-16-53 21:13:00 Test Item Value Reference Range Interpretation Comments CO2 (test code = CO2) 27 24-32 [facility]2021-05-24 21:13:00 Test Item Value Reference Range Interpretation Comments Calcium Lvl (test code = Calcium Lvl) 9.0 8.5-10.5 [place] 656901-05-24 21:13:00 Test Item Value Reference Range Interpretation Comments AGAP (test code = AGAP) 7.5 10.0-20.0 [facility]2021-05-24 21:13:00 Test Item Value Reference Range Interpretation Comments eGFR (test code = eGFR) 126 [facility]2021-05-24 21:13:00 Test Item Value Reference Range Interpretation Comments Lactic Acid Lvl (test code = Lactic 0.6 0.5-2.2 Acid Lvl) [place] 68251021-05-24 21:13:00 Test Item Value Reference Range Interpretation Comments hCG Tot (test code = hCG Tot) no gt [facility] CenterXmncnqvSXIETUFAUI9213-75-52 21:13:00 Test Item Value Reference Range Interpretation Comments WBC X 10x3 (test code = WBC X 10x3) 7.9 3.7-10.4 [facility] CenterLmwtqbiRMCYGRWESG2921-89-86 21:13:00 Test Item Value Reference Range Interpretation Comments RBC X 10x6 (test code = RBC X 10x6) 4.80 4.20-5.40 [facility] CenterWkbyzlrBJZKTUUEVM9066-80-23 21:13:00 Test Item Value Reference Range Interpretation Comments Hgb (test code = Hgb) 12.4 12.0-16.0 [facility] CenterNhwiqrsRHNOLVVJOE0683-77-05 21:13:00 Test Item Value Reference Range Interpretation Comments Hct (test code = Hct) 37.9 36.0-48.0 [place] 440271-05-24 21:13:00 Test Item Value Reference Range Interpretation Comments MCV (test code = MCV) 78.9 80.0-98.0 [place] 440271-05-24 21:13:00 Test Item Value Reference Range Interpretation Comments MCH (test code = MCH) 25.7 pg 27.0-31.0 [facility] CenterZuqtzyoWPOTJCWWZK4186-52-72 21:13:00 Test Item Value Reference Range Interpretation Comments MCHC (test code = MCHC) 32.6 32.0-36.0 [place] 440271-05-24 21:13:00 Test Item Value Reference Range Interpretation Comments RDW (test code = RDW) 15.5 11.5-14.5 [place] 440271-05-24 21:13:00 Test Item Value Reference Range Interpretation Comments Platelet (test code = Platelet) 243 133-450 [place] 440271-05-24 21:13:00 Test Item Value Reference Range Interpretation Comments MPV (test code = MPV) 9.4 7.4-10.4 [place] 440271-05-24 21:13:00 Test Item Value Reference Range Interpretation Comments Segs (test code = Segs) 56.1 45.0-75.0 [place] [address]-05-24 21:13:00 Test Item Value Reference Range Interpretation Comments Lymphocytes (test code = Lymphocytes) 32.2 20.0-40.0 [place] [address]-05-24 21:13:00 Test Item Value Reference Range Interpretation Comments Monocytes (test code = Monocytes) 9.1 2.0-12.0 [place] [address]-05-24 21:13:00 Test Item Value Reference Range Interpretation Comments Eosinophils (test code = 2.2 See_Comment [A utomated message] The Eosinophils) system which ge nerated this result tra nsmitted reference range : <=4.0. The reference r kat was not used to int erpret this result as normal/abnormal . [place] 440271-05-24 21:13:00 Test Item Value Reference Range Interpretation Comments Basophils (test code = 0.4 See_Comment [Aut omated message] The Basophils) system which ge nerated this result tra nsmitted reference range : <=1.0. The reference r kat was not used to int erpret this result as normal/abnormal . [place] 440271-05-24 21:13:00 Test Item Value Reference Range Interpretation Comments Neutrophils # (test code = Neutrophils 4.4 1.5-8.1 #) [place] 440271-05-24 21:13:00 Test Item Value Reference Range Interpretation Comments Lymphocytes # (test code = Lymphocytes 2.5 1.0-5.5 #) [place] 440271-05-24 21:13:00 Test Item Value Reference Range Interpretation Comments Monocytes # (test code 0.7 See_Comment [Aut omated message] The = Monocytes #) system which generated this result tra nsmitted reference range : <=0.8. The reference r kat was not used to int erpret this result as normal/abnormal . [place] 440271-05-24 21:13:00 Test Item Value Reference Range Interpretation Comments Eosinophils # (test code 0.2 See_Comment [A utomated message] The = Eosinophils #) system whic h generated this result tra nsmitted reference range : <=0.5. The reference r kat was not used to int erpret this result as normal/abnormal . [place] 440271-05-24 21:13:00 Test Item Value Reference Range Interpretation Comments Microcyte (test code = 1+ *ABN*(01/20/21 Microcyte) 4:13 PM) [place] 656901-05-24 21:13:00 Test Item Value Reference Range Interpretation Comments Glucose Lvl (test code = Glucose Lvl) 89 70-99 [place] 656901-05-24 21:13:00 Test Item Value Reference Range Interpretation Comments BUN (test code = BUN) 8 7-22 [place] 656901-05-24 21:13:00 Test Item Value Reference Range Interpretation Comments Creatinine Lvl (test code = Creatinine 0.55 0.50-1.40 Lvl) [place] 656901-05-24 21:13:00 Test Item Value Reference Range Interpretation Comments Sodium Lvl (test code = Sodium Lvl) 140 135-145 [place] 656901-05-24 21:13:00 Test Item Value Reference Range Interpretation Comments Potassium Lvl (test code = Potassium 3.5 3.5-5.1 Lvl) [place] 656901-05-24 21:13:00 Test Item Value Reference Range Interpretation Comments Chloride Lvl (test code = Chloride Lvl) 109 95-109 [place] 656901-05-24 21:13:00 Test Item Value Reference Range Interpretation Comments CO2 (test code = CO2) 27 24-32 [place] 656901-05-24 21:13:00 Test Item Value Reference Range Interpretation Comments Calcium Lvl (test code = Calcium Lvl) 9.0 8.5-10.5 [facility]2021-05-24 21:13:00 Test Item Value Reference Range Interpretation Comments AGAP (test code = AGAP) 7.5 10.0-20.0 [facility]2021-05-24 21:13:00 Test Item Value Reference Range Interpretation Comments eGFR (test code = eGFR) 126 [facility]2021-05-24 21:13:00 Test Item Value Reference Range Interpretation Comments Lactic Acid Lvl (test code = Lactic 0.6 0.5-2.2 Acid Lvl) [facility]fcomvvWTCKLUXRIUYZX0784-43-07 21:13:00 Test Item Value Reference Range Interpretation Comments hCG Tot (test code = hCG Tot) no gt [facility] CenterAwaewojQWRBAPJIPL4229-45-96 21:13:00 Test Item Value Reference Range Interpretation Comments WBC X 10x3 (test code = WBC X 10x3) 7.9 3.7-10.4 [facility] CenterKsejtsiEUDFTMJWQR7617-89-69 21:13:00 Test Item Value Reference Range Interpretation Comments RBC X 10x6 (test code = RBC X 10x6) 4.80 4.20-5.40 [facility] CenterLhopvluWEOFZBKPOG9338-79-40 21:13:00 Test Item Value Reference Range Interpretation Comments Hgb (test code = Hgb) 12.4 12.0-16.0 [facility] CenterUoqitjaUOGWSQVPPZ2833-01-72 21:13:00 Test Item Value Reference Range Interpretation Comments Hct (test code = Hct) 37.9 36.0-48.0 [facility] CenterRmwyphbKPXJYBUWJT6880-78-71 21:13:00 Test Item Value Reference Range Interpretation Comments MCV (test code = MCV) 78.9 80.0-98.0 [place] 440271-05-24 21:13:00 Test Item Value Reference Range Interpretation Comments MCH (test code = MCH) 25.7 pg 27.0-31.0 [facility] CenterDzhyemkPMUZKUWWBH5831-03-42 21:13:00 Test Item Value Reference Range Interpretation Comments MCHC (test code = MCHC) 32.6 32.0-36.0 [facility] CenterChytfzsAYORKYHLAW9060-79-48 21:13:00 Test Item Value Reference Range Interpretation Comments RDW (test code = RDW) 15.5 11.5-14.5 [place] 440271-05-24 21:13:00 Test Item Value Reference Range Interpretation Comments Platelet (test code = Platelet) 243 133-450 [place] 440271-05-24 21:13:00 Test Item Value Reference Range Interpretation Comments MPV (test code = MPV) 9.4 7.4-10.4 [place] 440271-05-24 21:13:00 Test Item Value Reference Range Interpretation Comments Segs (test code = Segs) 56.1 45.0-75.0 [place] 440271-05-24 21:13:00 Test Item Value Reference Range Interpretation Comments Lymphocytes (test code = Lymphocytes) 32.2 20.0-40.0 [place] [address]-05-24 21:13:00 Test Item Value Reference Range Interpretation Comments Monocytes (test code = Monocytes) 9.1 2.0-12.0 [place] [address]-05-24 21:13:00 Test Item Value Reference Range Interpretation Comments Eosinophils (test code = 2.2 See_Comment [A utomated message] The Eosinophils) system which ge nerated this result tra nsmitted reference range : <=4.0. The reference r kat was not used to int erpret this result as normal/abnormal . [place] [address]-05-24 21:13:00 Test Item Value Reference Range Interpretation Comments Basophils (test code = 0.4 See_Comment [Aut omated message] The Basophils) system which ge nerated this result tra nsmitted reference range : <=1.0. The reference r kat was not used to int erpret this result as normal/abnormal . [place] 440271-05-24 21:13:00 Test Item Value Reference Range Interpretation Comments Neutrophils # (test code = Neutrophils 4.4 1.5-8.1 #) [place] 440271-05-24 21:13:00 Test Item Value Reference Range Interpretation Comments Lymphocytes # (test code = Lymphocytes 2.5 1.0-5.5 #) [place] 440271-05-24 21:13:00 Test Item Value Reference Range Interpretation Comments Monocytes # (test code 0.7 See_Comment [Aut omated message] The = Monocytes #) system which generated this result tra nsmitted reference range : <=0.8. The reference r kat was not used to int erpret this result as normal/abnormal . [place] 440271-05-24 21:13:00 Test Item Value Reference Range Interpretation Comments Eosinophils # (test code 0.2 See_Comment [A utomated message] The = Eosinophils #) system whic h generated this result tra nsmitted reference range : <=0.5. The reference r kat was not used to int erpret this result as normal/abnormal . [place] 440271-05-24 21:13:00 Test Item Value Reference Range Interpretation Comments Microcyte (test code = 1+ *ABN*(01/20/21 Microcyte) 4:13 PM) [place] [address]-05-24 21:13:00 Test Item Value Reference Range Interpretation Comments Glucose Lvl (test code = Glucose Lvl) 89 70-99 [place] 656901-05-24 21:13:00 Test Item Value Reference Range Interpretation Comments BUN (test code = BUN) 8 7-22 [place] 656901-05-24 21:13:00 Test Item Value Reference Range Interpretation Comments Creatinine Lvl (test code = Creatinine 0.55 0.50-1.40 Lvl) [place] 656901-05-24 21:13:00 Test Item Value Reference Range Interpretation Comments Sodium Lvl (test code = Sodium Lvl) 140 135-145 [place] 656901-05-24 21:13:00 Test Item Value Reference Range Interpretation Comments Potassium Lvl (test code = Potassium 3.5 3.5-5.1 Lvl) [place] 656901-05-24 21:13:00 Test Item Value Reference Range Interpretation Comments Chloride Lvl (test code = Chloride Lvl) 109 95-109 [place] 656901-05-24 21:13:00 Test Item Value Reference Range Interpretation Comments CO2 (test code = CO2) 27 24-32 [place] 656901-05-24 21:13:00 Test Item Value Reference Range Interpretation Comments Calcium Lvl (test code = Calcium Lvl) 9.0 8.5-10.5 [place] 656901-05-24 21:13:00 Test Item Value Reference Range Interpretation Comments AGAP (test code = AGAP) 7.5 10.0-20.0 [facility]2021-05-24 21:13:00 Test Item Value Reference Range Interpretation Comments eGFR (test code = eGFR) 126 [facility]2021-05-24 21:13:00 Test Item Value Reference Range Interpretation Comments Lactic Acid Lvl (test code = Lactic 0.6 0.5-2.2 Acid Lvl) [facility]JdkeqzcMIWXSTRFBLYVK5687-14-41 21:13:00 Test Item Value Reference Range Interpretation Comments hCG Tot (test code = hCG Tot) no gt [facility] CenterMasrehlDANIMMCWXO7946-69-42 21:13:00 Test Item Value Reference Range Interpretation Comments WBC X 10x3 (test code = WBC X 10x3) 7.9 3.7-10.4 [facility] CenterWdenpiaPYADPFLCVN5066-99-08 21:13:00 Test Item Value Reference Range Interpretation Comments RBC X 10x6 (test code = RBC X 10x6) 4.80 4.20-5.40 [facility] CenterNoyjtixPUCVZEGSVB1559-45-61 21:13:00 Test Item Value Reference Range Interpretation Comments Hgb (test code = Hgb) 12.4 12.0-16.0 [facility] CenterBymjhniYHFYQZCGKC2941-73-62 21:13:00 Test Item Value Reference Range Interpretation Comments Hct (test code = Hct) 37.9 36.0-48.0 [place] 440271-05-24 21:13:00 Test Item Value Reference Range Interpretation Comments MCV (test code = MCV) 78.9 80.0-98.0 [place] 440271-05-24 21:13:00 Test Item Value Reference Range Interpretation Comments MCH (test code = MCH) 25.7 pg 27.0-31.0 [place] [address]-05-24 21:13:00 Test Item Value Reference Range Interpretation Comments MCHC (test code = MCHC) 32.6 32.0-36.0 [facility] CenterGkptgblEODYCRYIIJ8533-62-83 21:13:00 Test Item Value Reference Range Interpretation Comments RDW (test code = RDW) 15.5 11.5-14.5 [place] 440271-05-24 21:13:00 Test Item Value Reference Range Interpretation Comments Platelet (test code = Platelet) 243 133-450 [facility] CenterKmcxfnaOVGTAZFGRO4185-93-35 21:13:00 Test Item Value Reference Range Interpretation Comments MPV (test code = MPV) 9.4 7.4-10.4 [facility] CenterBsxnndwBINVGYYLEP4092-52-05 21:13:00 Test Item Value Reference Range Interpretation Comments Segs (test code = Segs) 56.1 45.0-75.0 [facility] CenterYqrqfvvMDCAKRLUNR1895-18-94 21:13:00 Test Item Value Reference Range Interpretation Comments Lymphocytes (test code = Lymphocytes) 32.2 20.0-40.0 [place] 440271-05-24 21:13:00 Test Item Value Reference Range Interpretation Comments Monocytes (test code = Monocytes) 9.1 2.0-12.0 [facility] CenterAjpqzclHDUVYLCMKN4330-70-68 21:13:00 Test Item Value Reference Range Interpretation Comments Eosinophils (test code = 2.2 See_Comment [A utomated message] The Eosinophils) system which ge nerated this result tra nsmitted reference range : <=4.0. The reference r kat was not used to int erpret this result as normal/abnormal . [facility] CenterTnaotufOVLCEOMOVZ0943-54-15 21:13:00 Test Item Value Reference Range Interpretation Comments Basophils (test code = 0.4 See_Comment [Aut omated message] The Basophils) system which ge nerated this result tra nsmitted reference range : <=1.0. The reference r kat was not used to int erpret this result as normal/abnormal . [facility] CenterBwcuadfHPHBLWSKTG2394-88-61 21:13:00 Test Item Value Reference Range Interpretation Comments Neutrophils # (test code = Neutrophils 4.4 1.5-8.1 #) [place] 440271-05-24 21:13:00 Test Item Value Reference Range Interpretation Comments Lymphocytes # (test code = Lymphocytes 2.5 1.0-5.5 #) [place] 440271-05-24 21:13:00 Test Item Value Reference Range Interpretation Comments Monocytes # (test code 0.7 See_Comment [Aut omated message] The = Monocytes #) system which generated this result tra nsmitted reference range : <=0.8. The reference r kat was not used to int erpret this result as normal/abnormal . [place] 440271-05-24 21:13:00 Test Item Value Reference Range Interpretation Comments Eosinophils # (test code 0.2 See_Comment [A utomated message] The = Eosinophils #) system whic h generated this result tra nsmitted reference range : <=0.5. The reference r kat was not used to int erpret this result as normal/abnormal . [place] 440271-05-24 21:13:00 Test Item Value Reference Range Interpretation Comments Microcyte (test code = 1+ *ABN*(01/20/21 Microcyte) 4:13 PM) [place] 656901-05-24 21:13:00 Test Item Value Reference Range Interpretation Comments Glucose Lvl (test code = Glucose Lvl) 89 70-99 [place] 656901-05-24 21:13:00 Test Item Value Reference Range Interpretation Comments BUN (test code = BUN) 8 7-22 [place] 656901-05-24 21:13:00 Test Item Value Reference Range Interpretation Comments Creatinine Lvl (test code = Creatinine 0.55 0.50-1.40 Lvl) [place] [place] 21:13:00 Test Item Value Reference Range Interpretation Comments Sodium Lvl (test code = Sodium Lvl) 140 135-145 [place] 656901-05-24 21:13:00 Test Item Value Reference Range Interpretation Comments Potassium Lvl (test code = Potassium 3.5 3.5-5.1 Lvl) [place] 656901-05-24 21:13:00 Test Item Value Reference Range Interpretation Comments Chloride Lvl (test code = Chloride Lvl) 109 95-109 [place] 656901-05-24 21:13:00 Test Item Value Reference Range Interpretation Comments CO2 (test code = CO2) 27 24-32 [place]6901-05-24 21:13:00 Test Item Value Reference Range Interpretation Comments Calcium Lvl (test code = Calcium Lvl) 9.0 8.5-10.5 [place] 656901-05-24 21:13:00 Test Item Value Reference Range Interpretation Comments AGAP (test code = AGAP) 7.5 10.0-20.0 [place] 656901-05-24 21:13:00 Test Item Value Reference Range Interpretation Comments eGFR (test code = eGFR) 126 [facility] 21:13:00 Test Item Value Reference Range Interpretation Comments Lactic Acid Lvl (test code = Lactic 0.6 0.5-2.2 Acid Lvl) [facility]PthpalhAYMVNXJNOYJQH5010-11-40 21:13:00 Test Item Value Reference Range Interpretation Comments hCG Tot (test code = hCG Tot) no gt [facility] CenterIuauiirGCJDAFHNNS4861-94-71 21:13:00 Test Item Value Reference Range Interpretation Comments WBC X 10x3 (test code = WBC X 10x3) 7.9 3.7-10.4 [facility] CenterHdggwaePDHSGOCLJW2782-59-08 21:13:00 Test Item Value Reference Range Interpretation Comments RBC X 10x6 (test code = RBC X 10x6) 4.80 4.20-5.40 [facility] CenterQcudupaTDVZQCWYJL0309-79-42 21:13:00 Test Item Value Reference Range Interpretation Comments Hgb (test code = Hgb) 12.4 12.0-16.0 [facility] CenterTjykodjPOTZOTVSIY2273-29-52 21:13:00 Test Item Value Reference Range Interpretation Comments Hct (test code = Hct) 37.9 36.0-48.0 [facility] CenterWjcqrwhDAONZZQFWC0844-29-72 21:13:00 Test Item Value Reference Range Interpretation Comments MCV (test code = MCV) 78.9 80.0-98.0 [facility] CenterVxltobeUUYDPSSLIX1754-29-38 21:13:00 Test Item Value Reference Range Interpretation Comments MCH (test code = MCH) 25.7 pg 27.0-31.0 [facility] CenterGfgttveITHQPEGQWC6813-24-56 21:13:00 Test Item Value Reference Range Interpretation Comments MCHC (test code = MCHC) 32.6 32.0-36.0 [facility] CenterImamgrxZXFEWPZHCJ4040-60-97 21:13:00 Test Item Value Reference Range Interpretation Comments RDW (test code = RDW) 15.5 11.5-14.5 [facility] CenterBbtquzsSXJVDFCKRA2191-98-87 21:13:00 Test Item Value Reference Range Interpretation Comments Platelet (test code = Platelet) 243 133-450 [facility] CenterRckbgxwLERHTSTORJ4654-90-10 21:13:00 Test Item Value Reference Range Interpretation Comments MPV (test code = MPV) 9.4 7.4-10.4 [place] [address]-05-24 21:13:00 Test Item Value Reference Range Interpretation Comments Segs (test code = Segs) 56.1 45.0-75.0 [place] [address]-05-24 21:13:00 Test Item Value Reference Range Interpretation Comments Lymphocytes (test code = Lymphocytes) 32.2 20.0-40.0 [place] [address]-05-24 21:13:00 Test Item Value Reference Range Interpretation Comments Monocytes (test code = Monocytes) 9.1 2.0-12.0 [place] [address]-05-24 21:13:00 Test Item Value Reference Range Interpretation Comments Eosinophils (test code = 2.2 See_Comment [A utomated message] The Eosinophils) system which nerated this result tra nsmitted reference range : <=4.0. The reference r kat was not used to int erpret this result as normal/abnormal . [place] [address]-05-24 21:13:00 Test Item Value Reference Range Interpretation Comments Basophils (test code = 0.4 See_Comment [Aut omated message] The Basophils) system which ge nerated this result tra nsmitted reference range : <=1.0. The reference r kat was not used to int erpret this result as normal/abnormal . [facility]2021-05-24 21:13:00 Test Item Value Reference Range Interpretation Comments Glucose Lvl (test code = Glucose Lvl) 89 70-99 [place] 656901-05-24 21:13:00 Test Item Value Reference Range Interpretation Comments BUN (test code = BUN) 8 7-22 [place] 656901-05-24 21:13:00 Test Item Value Reference Range Interpretation Comments Creatinine Lvl (test code = Creatinine 0.55 0.50-1.40 Lvl) [place] 656901-05-24 21:13:00 Test Item Value Reference Range Interpretation Comments Sodium Lvl (test code = Sodium Lvl) 140 135-145 [place] 656901-05-24 21:13:00 Test Item Value Reference Range Interpretation Comments Potassium Lvl (test code = Potassium 3.5 3.5-5.1 Lvl) [place] 656901-05-24 21:13:00 Test Item Value Reference Range Interpretation Comments Chloride Lvl (test code = Chloride Lvl) 109 95-109 [place] 656901-05-24 21:13:00 Test Item Value Reference Range Interpretation Comments CO2 (test code = CO2) 27 24-32 [place] [address]-05-24 21:13:00 Test Item Value Reference Range Interpretation Comments Calcium Lvl (test code = Calcium Lvl) 9.0 8.5-10.5 [place] 656901-05-24 21:13:00 Test Item Value Reference Range Interpretation Comments AGAP (test code = AGAP) 7.5 10.0-20.0 [address]05-24 21:13:00 Test Item Value Reference Range Interpretation Comments eGFR (test code = eGFR) 126 [place] [address]-05-24 21:13:00 Test Item Value Reference Range Interpretation Comments Neutrophils # (test code = Neutrophils 4.4 1.5-8.1 #) [place] 656901-05-24 21:13:00 Test Item Value Reference Range Interpretation Comments Lactic Acid Lvl (test code = Lactic 0.6 0.5-2.2 Acid Lvl) [place] [address]-05-24 21:13:00 Test Item Value Reference Range Interpretation Comments hCG Tot (test code = hCG Tot) no gt [place] 440271-05-24 21:13:00 Test Item Value Reference Range Interpretation Comments WBC X 10x3 (test code = WBC X 10x3) 7.9 3.7-10.4 [place]271-05-24 21:13:00 Test Item Value Reference Range Interpretation Comments RBC X 10x6 (test code = RBC X 10x6) 4.80 4.20-5.40 [place] [address]-05-24 21:13:00 Test Item Value Reference Range Interpretation Comments Hgb (test code = Hgb) 12.4 12.0-16.0 [place] [address]-05-24 21:13:00 Test Item Value Reference Range Interpretation Comments Hct (test code = Hct) 37.9 36.0-48.0 [place] [address]-05-24 21:13:00 Test Item Value Reference Range Interpretation Comments MCV (test code = MCV) 78.9 80.0-98.0 [place]271-05-24 21:13:00 Test Item Value Reference Range Interpretation Comments MCH (test code = MCH) 25.7 pg 27.0-31.0 [place] 440271-05-24 21:13:00 Test Item Value Reference Range Interpretation Comments MCHC (test code = MCHC) 32.6 32.0-36.0 [place] 440271-05-24 21:13:00 Test Item Value Reference Range Interpretation Comments RDW (test code = RDW) 15.5 11.5-14.5 [place] 440271-05-24 21:13:00 Test Item Value Reference Range Interpretation Comments Lymphocytes # (test code = Lymphocytes 2.5 1.0-5.5 #) [facility] CenterUkatxuvVTPWBCVEPS7442-96-79 21:13:00 Test Item Value Reference Range Interpretation Comments Platelet (test code = Platelet) 243 133-450 [facility] CenterMibbqipMZJFRNMMBZ9940-08-45 21:13:00 Test Item Value Reference Range Interpretation Comments MPV (test code = MPV) 9.4 7.4-10.4 [place] 440271-05-24 21:13:00 Test Item Value Reference Range Interpretation Comments Segs (test code = Segs) 56.1 45.0-75.0 [place] [address]-05-24 21:13:00 Test Item Value Reference Range Interpretation Comments Lymphocytes (test code = Lymphocytes) 32.2 20.0-40.0 [place] [address]-05-24 21:13:00 Test Item Value Reference Range Interpretation Comments Monocytes (test code = Monocytes) 9.1 2.0-12.0 [place] [address]-05-24 21:13:00 Test Item Value Reference Range Interpretation Comments Eosinophils (test code = 2.2 See_Comment [A utomated message] The Eosinophils) system which ge nerated this result tra nsmitted reference range : <=4.0. The reference r kat was not used to int erpret this result as normal/abnormal . [facility] CenterIbmvfgoHNETJVDHIF8113-38-60 21:13:00 Test Item Value Reference Range Interpretation Comments Basophils (test code = 0.4 See_Comment [Aut omated message] The Basophils) system which ge nerated this result tra nsmitted reference range : <=1.0. The reference r kat was not used to int erpret this result as normal/abnormal . [place] 440271-05-24 21:13:00 Test Item Value Reference Range Interpretation Comments Neutrophils # (test code = Neutrophils 4.4 1.5-8.1 #) [place] 440271-05-24 21:13:00 Test Item Value Reference Range Interpretation Comments Lymphocytes # (test code = Lymphocytes 2.5 1.0-5.5 #) [place] 440271-05-24 21:13:00 Test Item Value Reference Range Interpretation Comments Monocytes # (test code 0.7 See_Comment [Aut omated message] The = Monocytes #) system which generated this result tra nsmitted reference range : <=0.8. The reference r kat was not used to int erpret this result as normal/abnormal . [place] [address]-05-24 21:13:00 Test Item Value Reference Range Interpretation Comments Monocytes # (test code 0.7 See_Comment [Aut omated message] The = Monocytes #) system which generated this result tra nsmitted reference range : <=0.8. The reference r kat was not used to int erpret this result as normal/abnormal . [place] [address]-05-24 21:13:00 Test Item Value Reference Range Interpretation Comments Eosinophils # (test code 0.2 See_Comment [A utomated message] The = Eosinophils #) system [facility] [employer] generated this result tra nsmitted reference range : <=0.5. The reference r kat was not used to int erpret this result as normal/abnormal . [place] 440271-05-24 21:13:00 Test Item Value Reference Range Interpretation Comments Microcyte (test code = 1+ *ABN*(01/20/21 Microcyte) 4:13 PM) [place] [address]-05-24 21:13:00 Test Item Value Reference Range Interpretation Comments Eosinophils # (test code 0.2 See_Comment [A utomated message] The = Eosinophils #) system [facility] [employer] generated this result tra nsmitted reference range : <=0.5. The reference r kat was not used to int erpret this result as normal/abnormal . [facility]NbrokapKNMKFCQHAK7219-99-42 21:13:00 Test Item Value Reference Range Interpretation Comments Microcyte (test code = 1+ *ABN*(01/20/21 Microcyte) 4:13 PM) [place] [address]-05-24 21:13:00 Test Item Value Reference Range Interpretation Comments Glucose Lvl (test code = Glucose Lvl) 89 70-99 [place] 656901-05-24 21:13:00 Test Item Value Reference Range Interpretation Comments BUN (test code = BUN) 8 7-22 [place] 656901-05-24 21:13:00 Test Item Value Reference Range Interpretation Comments Creatinine Lvl (test code = Creatinine 0.55 0.50-1.40 Lvl) [place] [address]-05-24 21:13:00 Test Item Value Reference Range Interpretation Comments Sodium Lvl (test code = Sodium Lvl) 140 135-145 [place] 656901-05-24 21:13:00 Test Item Value Reference Range Interpretation Comments Potassium Lvl (test code = Potassium 3.5 3.5-5.1 Lvl) [place] 656901-05-24 21:13:00 Test Item Value Reference Range Interpretation Comments Chloride Lvl (test code = Chloride Lvl) 109 95-109 [place] 656901-05-24 21:13:00 Test Item Value Reference Range Interpretation Comments CO2 (test code = CO2) 27 24-32 [place] 656901-05-24 21:13:00 Test Item Value Reference Range Interpretation Comments Calcium Lvl (test code = Calcium Lvl) 9.0 8.5-10.5 [place] 656901-05-24 21:13:00 Test Item Value Reference Range Interpretation Comments AGAP (test code = AGAP) 7.5 10.0-20.0 [place] 656901-05-24 21:13:00 Test Item Value Reference Range Interpretation Comments eGFR (test code = eGFR) 126 [place] 656901-05-24 21:13:00 Test Item Value Reference Range Interpretation Comments Lactic Acid Lvl (test code = Lactic 0.6 0.5-2.2 Acid Lvl) [place] 68251021-05-24 21:13:00 Test Item Value Reference Range Interpretation Comments hCG Tot (test code = hCG Tot) no gt [facility] CenterKwditmlSCGYNMWBHJ6359-81-80 21:13:00 Test Item Value Reference Range Interpretation Comments WBC X 10x3 (test code = WBC X 10x3) 7.9 3.7-10.4 [facility] CenterEodkbcxUYSXQPOBUE7964-53-32 21:13:00 Test Item Value Reference Range Interpretation Comments RBC X 10x6 (test code = RBC X 10x6) 4.80 4.20-5.40 [facility] CenterYrdyfddHMTOUFCOOJ4472-98-83 21:13:00 Test Item Value Reference Range Interpretation Comments Hgb (test code = Hgb) 12.4 12.0-16.0 [facility] CenterEpipqznVVFURHPULP5963-87-11 21:13:00 Test Item Value Reference Range Interpretation Comments Hct (test code = Hct) 37.9 36.0-48.0 [facility] CenterZqenturHIMYBLLEKI4247-18-96 21:13:00 Test Item Value Reference Range Interpretation Comments MCV (test code = MCV) 78.9 80.0-98.0 [facility] CenterJyouxjuOEBRXHPKJG5025-49-48 21:13:00 Test Item Value Reference Range Interpretation Comments MCH (test code = MCH) 25.7 pg 27.0-31.0 [facility] CenterRfvcipqRAUMWBVQMP3686-71-91 21:13:00 Test Item Value Reference Range Interpretation Comments MCHC (test code = MCHC) 32.6 32.0-36.0 [facility] CenterFyrszdlIUXEOEZBFU2945-59-67 21:13:00 Test Item Value Reference Range Interpretation Comments RDW (test code = RDW) 15.5 11.5-14.5 [facility] CenterFacdjfdBFCOBASFJZ8437-22-71 21:13:00 Test Item Value Reference Range Interpretation Comments Platelet (test code = Platelet) 243 133-450 [facility] CenterDhehujlFOMVSJEZPR4663-02-82 21:13:00 Test Item Value Reference Range Interpretation Comments MPV (test code = MPV) 9.4 7.4-10.4 [facility] CenterGjzwfnlGNQIWIVOXO2261-86-53 21:13:00 Test Item Value Reference Range Interpretation Comments Segs (test code = Segs) 56.1 45.0-75.0 [facility] CenterKwlruktZJUGKLPRUL4523-54-12 21:13:00 Test Item Value Reference Range Interpretation Comments Lymphocytes (test code = Lymphocytes) 32.2 20.0-40.0 [place] [address]-05-24 21:13:00 Test Item Value Reference Range Interpretation Comments Monocytes (test code = Monocytes) 9.1 2.0-12.0 [place] 440271-05-24 21:13:00 Test Item Value Reference Range Interpretation Comments Eosinophils (test code = 2.2 See_Comment [A utomated message] The Eosinophils) system which ge nerated this result tra nsmitted reference range : <=4.0. The reference r kat was not used to int erpret this result as normal/abnormal . [place] [address]-05-24 21:13:00 Test Item Value Reference Range Interpretation Comments Basophils (test code = 0.4 See_Comment [Aut omated message] The Basophils) system which ge nerated this result tra nsmitted reference range : <=1.0. The reference r kat was not used to int erpret this result as normal/abnormal . [place] 440271-05-24 21:13:00 Test Item Value Reference Range Interpretation Comments Neutrophils # (test code = Neutrophils 4.4 1.5-8.1 #) [place] [address]-05-24 21:13:00 Test Item Value Reference Range Interpretation Comments Lymphocytes # (test code = Lymphocytes 2.5 1.0-5.5 #) [place] 440271-05-24 21:13:00 Test Item Value Reference Range Interpretation Comments Monocytes # (test code 0.7 See_Comment [Aut omated message] The = Monocytes #) system which generated this result tra nsmitted reference range : <=0.8. The reference r kat was not used to int erpret this result as normal/abnormal . [place] [address]-05-24 21:13:00 Test Item Value Reference Range Interpretation Comments Eosinophils # (test code 0.2 See_Comment [A utomated message] The = Eosinophils #) system whic h generated this result tra nsmitted reference range : <=0.5. The reference r kat was not used to int erpret this result as normal/abnormal . [place] 440271-05-24 21:13:00 Test Item Value Reference Range Interpretation Comments Microcyte (test code = 1+ *ABN*(01/20/21 Microcyte) 4:13 PM) [facility]2021-05-24 21:13:00 Test Item Value Reference Range Interpretation Comments Glucose Lvl (test code = Glucose Lvl) 89 70-99 [facility]2021-05-24 21:13:00 Test Item Value Reference Range Interpretation Comments BUN (test code = BUN) 8 7-22 [facility]2021-05-24 21:13:00 Test Item Value Reference Range Interpretation Comments Creatinine Lvl (test code = Creatinine 0.55 0.50-1.40 Lvl) [facility]2021-05-24 21:13:00 Test Item Value Reference Range Interpretation Comments Sodium Lvl (test code = Sodium Lvl) 140 135-145 [place] 656901-05-24 21:13:00 Test Item Value Reference Range Interpretation Comments Potassium Lvl (test code = Potassium 3.5 3.5-5.1 Lvl) [facility]2021-05-24 21:13:00 Test Item Value Reference Range Interpretation Comments Chloride Lvl (test code = Chloride Lvl) 109 95-109 [facility]2021-05-24 21:13:00 Test Item Value Reference Range Interpretation Comments CO2 (test code = CO2) 27 24-32 [facility]2021-05-24 21:13:00 Test Item Value Reference Range Interpretation Comments Calcium Lvl (test code = Calcium Lvl) 9.0 8.5-10.5 [facility]2021-05-24 21:13:00 Test Item Value Reference Range Interpretation Comments AGAP (test code = AGAP) 7.5 10.0-20.0 [facility]2021-05-24 21:13:00 Test Item Value Reference Range Interpretation Comments eGFR (test code = eGFR) 126 [facility]2021-05-24 21:13:00 Test Item Value Reference Range Interpretation Comments Lactic Acid Lvl (test code = Lactic 0.6 0.5-2.2 Acid Lvl) [facility]CenuenmWWJGCXSIOJXPJ1779-66-69 21:13:00 Test Item Value Reference Range Interpretation Comments hCG Tot (test code = hCG Tot) no gt [facility] CenterOfjgmycGITATJVZYK4691-54-68 21:13:00 Test Item Value Reference Range Interpretation Comments WBC X 10x3 (test code = WBC X 10x3) 7.9 3.7-10.4 [facility] CenterFpnbhpwKSTRRBGAQY3833-48-98 21:13:00 Test Item Value Reference Range Interpretation Comments RBC X 10x6 (test code = RBC X 10x6) 4.80 4.20-5.40 [facility] CenterFqzvzerEIUNFIILVC8971-03-10 21:13:00 Test Item Value Reference Range Interpretation Comments Hgb (test code = Hgb) 12.4 12.0-16.0 [place] [address]-05-24 21:13:00 Test Item Value Reference Range Interpretation Comments Hct (test code = Hct) 37.9 36.0-48.0 [facility] CenterCjmjzckZWOWHFLACW9978-16-38 21:13:00 Test Item Value Reference Range Interpretation Comments MCV (test code = MCV) 78.9 80.0-98.0 [place] 440271-05-24 21:13:00 Test Item Value Reference Range Interpretation Comments MCH (test code = MCH) 25.7 pg 27.0-31.0 [facility] CenterNtsvfzwDYSUCHSBGT7501-97-33 21:13:00 Test Item Value Reference Range Interpretation Comments MCHC (test code = MCHC) 32.6 32.0-36.0 [facility] CenterCstxzkePTRQOGIQXN0317-39-26 21:13:00 Test Item Value Reference Range Interpretation Comments RDW (test code = RDW) 15.5 11.5-14.5 [facility] CenterBjiwfqzJNUZUUHBPM1451-86-28 21:13:00 Test Item Value Reference Range Interpretation Comments Platelet (test code = Platelet) 243 133-450 [facility] CenterDdoeydqKRTSDWLTJX9815-68-41 21:13:00 Test Item Value Reference Range Interpretation Comments MPV (test code = MPV) 9.4 7.4-10.4 [place] 440271-05-24 21:13:00 Test Item Value Reference Range Interpretation Comments Segs (test code = Segs) 56.1 45.0-75.0 [place] 440271-05-24 21:13:00 Test Item Value Reference Range Interpretation Comments Lymphocytes (test code = Lymphocytes) 32.2 20.0-40.0 [place] 440271-05-24 21:13:00 Test Item Value Reference Range Interpretation Comments Monocytes (test code = Monocytes) 9.1 2.0-12.0 [place] 440271-05-24 21:13:00 Test Item Value Reference Range Interpretation Comments Eosinophils (test code = 2.2 See_Comment [A utomated message] The Eosinophils) system which ge nerated this result tra nsmitted reference range : <=4.0. The reference r kat was not used to int erpret this result as normal/abnormal . [place] 440271-05-24 21:13:00 Test Item Value Reference Range Interpretation Comments Basophils (test code = 0.4 See_Comment [Aut omated message] The Basophils) system which ge nerated this result tra nsmitted reference range : <=1.0. The reference r kat was not used to int erpret this result as normal/abnormal . [place] 440271-05-24 21:13:00 Test Item Value Reference Range Interpretation Comments Neutrophils # (test code = Neutrophils 4.4 1.5-8.1 #) [place] 440271-05-24 21:13:00 Test Item Value Reference Range Interpretation Comments Lymphocytes # (test code = Lymphocytes 2.5 1.0-5.5 #) [place] 440271-05-24 21:13:00 Test Item Value Reference Range Interpretation Comments Monocytes # (test code 0.7 See_Comment [Aut omated message] The = Monocytes #) system which generated this result tra nsmitted reference range : <=0.8. The reference r kat was not used to int erpret this result as normal/abnormal . [place] 440271-05-24 21:13:00 Test Item Value Reference Range Interpretation Comments Eosinophils # (test code 0.2 See_Comment [A utomated message] The = Eosinophils #) system whic h generated this result tra nsmitted reference range : <=0.5. The reference r kat was not used to int erpret this result as normal/abnormal . [place] 440271-05-24 21:13:00 Test Item Value Reference Range Interpretation Comments Microcyte (test code = 1+ *ABN*(01/20/21 Microcyte) 4:13 PM) [facility]2021-05-24 21:13:00 Test Item Value Reference Range Interpretation Comments Glucose Lvl (test code = Glucose Lvl) 89 70-99 [place] 656901-05-24 21:13:00 Test Item Value Reference Range Interpretation Comments BUN (test code = BUN) 8 7-22 [facility]2021-05-24 21:13:00 Test Item Value Reference Range Interpretation Comments Creatinine Lvl (test code = Creatinine 0.55 0.50-1.40 Lvl) [facility]2021-05-24 21:13:00 Test Item Value Reference Range Interpretation Comments Sodium Lvl (test code = Sodium Lvl) 140 135-145 [facility]2021-05-24 21:13:00 Test Item Value Reference Range Interpretation Comments Potassium Lvl (test code = Potassium 3.5 3.5-5.1 Lvl) [facility]2021-05-24 21:13:00 Test Item Value Reference Range Interpretation Comments Chloride Lvl (test code = Chloride Lvl) 109 95-109 [facility]2021-05-24 21:13:00 Test Item Value Reference Range Interpretation Comments CO2 (test code = CO2) 27 24-32 [place] 656901-05-24 21:13:00 Test Item Value Reference Range Interpretation Comments Calcium Lvl (test code = Calcium Lvl) 9.0 8.5-10.5 [facility]2021-05-24 21:13:00 Test Item Value Reference Range Interpretation Comments AGAP (test code = AGAP) 7.5 10.0-20.0 [facility]2021-05-24 21:13:00 Test Item Value Reference Range Interpretation Comments eGFR (test code = eGFR) 126 [facility]2021-05-24 21:13:00 Test Item Value Reference Range Interpretation Comments Lactic Acid Lvl (test code = Lactic 0.6 0.5-2.2 Acid Lvl) [facility] CampusIvndckrGVYRSGEIGSRNZ6222-39-18 21:13:00 Test Item Value Reference Range Interpretation Comments hCG Tot (test code = hCG Tot) no gt [facility]FebilgyTXNARCDSHU4652-46-80 21:13:00 Test Item Value Reference Range Interpretation Comments WBC X 10x3 (test code = WBC X 10x3) 7.9 3.7-10.4 [facility] CenterJmneevsBZYMGAJFTU7071-90-34 21:13:00 Test Item Value Reference Range Interpretation Comments RBC X 10x6 (test code = RBC X 10x6) 4.80 4.20-5.40 [place] 440271-05-24 21:13:00 Test Item Value Reference Range Interpretation Comments Hgb (test code = Hgb) 12.4 12.0-16.0 [place] [address]-05-24 21:13:00 Test Item Value Reference Range Interpretation Comments Hct (test code = Hct) 37.9 36.0-48.0 [facility] CenterCppxbynCXEOECTPAD1253-18-52 21:13:00 Test Item Value Reference Range Interpretation Comments MCV (test code = MCV) 78.9 80.0-98.0 [place] [address]-05-24 21:13:00 Test Item Value Reference Range Interpretation Comments MCH (test code = MCH) 25.7 pg 27.0-31.0 [place] 440271-05-24 21:13:00 Test Item Value Reference Range Interpretation Comments MCHC (test code = MCHC) 32.6 32.0-36.0 [facility] CenterYdzfizuWVJAHSMQWV3169-01-45 21:13:00 Test Item Value Reference Range Interpretation Comments RDW (test code = RDW) 15.5 11.5-14.5 [place] 440271-05-24 21:13:00 Test Item Value Reference Range Interpretation Comments Platelet (test code = Platelet) 243 133-450 [facility] CenterTtkbtpdJRGVAQEMLH2320-37-08 21:13:00 Test Item Value Reference Range Interpretation Comments MPV (test code = MPV) 9.4 7.4-10.4 [place] 440271-05-24 21:13:00 Test Item Value Reference Range Interpretation Comments Segs (test code = Segs) 56.1 45.0-75.0 [place] 440271-05-24 21:13:00 Test Item Value Reference Range Interpretation Comments Lymphocytes (test code = Lymphocytes) 32.2 20.0-40.0 [place] 440271-05-24 21:13:00 Test Item Value Reference Range Interpretation Comments Monocytes (test code = Monocytes) 9.1 2.0-12.0 [place] 440271-05-24 21:13:00 Test Item Value Reference Range Interpretation Comments Eosinophils (test code = 2.2 See_Comment [A utomated message] The Eosinophils) system which ge nerated this result tra nsmitted reference range : <=4.0. The reference r kat was not used to int erpret this result as normal/abnormal . [place] 440271-05-24 21:13:00 Test Item Value Reference Range Interpretation Comments Basophils (test code = 0.4 See_Comment [Aut omated message] The Basophils) system which ge nerated this result tra nsmitted reference range : <=1.0. The reference r kat was not used to int erpret this result as normal/abnormal . [place] 440271-05-24 21:13:00 Test Item Value Reference Range Interpretation Comments Neutrophils # (test code = Neutrophils 4.4 1.5-8.1 #) [place] 440271-05-24 21:13:00 Test Item Value Reference Range Interpretation Comments Lymphocytes # (test code = Lymphocytes 2.5 1.0-5.5 #) [place] 440271-05-24 21:13:00 Test Item Value Reference Range Interpretation Comments Monocytes # (test code 0.7 See_Comment [Aut omated message] The = Monocytes #) system which generated this result tra nsmitted reference range : <=0.8. The reference r kat was not used to int erpret this result as normal/abnormal . [place] 440271-05-24 21:13:00 Test Item Value Reference Range Interpretation Comments Eosinophils # (test code 0.2 See_Comment [A utomated message] The = Eosinophils #) system whic h generated this result tra nsmitted reference range : <=0.5. The reference r kat was not used to int erpret this result as normal/abnormal . [place] 440271-05-24 21:13:00 Test Item Value Reference Range Interpretation Comments Microcyte (test code = 1+ *ABN*(01/20/21 Microcyte) 4:13 PM) [facility]2021-05-24 21:13:00 Test Item Value Reference Range Interpretation Comments Glucose Lvl (test code = Glucose Lvl) 89 70-99 [facility]2021-05-24 21:13:00 Test Item Value Reference Range Interpretation Comments BUN (test code = BUN) 8 7-22 [place] 656901-05-24 21:13:00 Test Item Value Reference Range Interpretation Comments Creatinine Lvl (test code = Creatinine 0.55 0.50-1.40 Lvl) [place] 656901-05-24 21:13:00 Test Item Value Reference Range Interpretation Comments Sodium Lvl (test code = Sodium Lvl) 140 135-145 [place] 656901-05-24 21:13:00 Test Item Value Reference Range Interpretation Comments Potassium Lvl (test code = Potassium 3.5 3.5-5.1 Lvl) [place] 656901-05-24 21:13:00 Test Item Value Reference Range Interpretation Comments Chloride Lvl (test code = Chloride Lvl) 109 95-109 [facility]2021-05-24 21:13:00 Test Item Value Reference Range Interpretation Comments CO2 (test code = CO2) 27 24-32 [place] 656901-05-24 21:13:00 Test Item Value Reference Range Interpretation Comments Calcium Lvl (test code = Calcium Lvl) 9.0 8.5-10.5 [facility]2021-05-24 21:13:00 Test Item Value Reference Range Interpretation Comments AGAP (test code = AGAP) 7.5 10.0-20.0 [facility]2021-05-24 21:13:00 Test Item Value Reference Range Interpretation Comments eGFR (test code = eGFR) 126 [facility]2021-05-24 21:13:00 Test Item Value Reference Range Interpretation Comments Lactic Acid Lvl (test code = Lactic 0.6 0.5-2.2 Acid Lvl) [facility]AqyleezBWVAADNHJDYFK3064-83-22 21:13:00 Test Item Value Reference Range Interpretation Comments hCG Tot (test code = hCG Tot) no gt [facility] CenterUvrkkxsHYUKRASWCX3875-99-19 21:13:00 Test Item Value Reference Range Interpretation Comments WBC X 10x3 (test code = WBC X 10x3) 7.9 3.7-10.4 [facility] CenterMnnoyrwSKPFPKEGOG4839-83-33 21:13:00 Test Item Value Reference Range Interpretation Comments RBC X 10x6 (test code = RBC X 10x6) 4.80 4.20-5.40 [facility] CenterCpbzfjvXEPGLDGOMO6988-26-33 21:13:00 Test Item Value Reference Range Interpretation Comments Hgb (test code = Hgb) 12.4 12.0-16.0 [facility] CenterZzcopukHZCFNHBALQ5253-60-66 21:13:00 Test Item Value Reference Range Interpretation Comments Hct (test code = Hct) 37.9 36.0-48.0 [facility] CenterVgmqhenDGADIVTEHU9574-57-01 21:13:00 Test Item Value Reference Range Interpretation Comments MCV (test code = MCV) 78.9 80.0-98.0 [facility] CenterQoycwavMPYDTKFJKU5568-71-64 21:13:00 Test Item Value Reference Range Interpretation Comments MCH (test code = MCH) 25.7 pg 27.0-31.0 [place] 440271-05-24 21:13:00 Test Item Value Reference Range Interpretation Comments MCHC (test code = MCHC) 32.6 32.0-36.0 [facility] CenterUgyrzwkARZBVNNRID6131-31-27 21:13:00 Test Item Value Reference Range Interpretation Comments RDW (test code = RDW) 15.5 11.5-14.5 [facility] CenterIavglqqQEFCQSLNRQ5001-95-85 21:13:00 Test Item Value Reference Range Interpretation Comments Platelet (test code = Platelet) 243 133-450 [facility] CenterFoqhnebNXXVMYXJMQ1562-34-16 21:13:00 Test Item Value Reference Range Interpretation Comments MPV (test code = MPV) 9.4 7.4-10.4 [facility] CenterVypsngdCXJHZRVAMJ1850-15-62 21:13:00 Test Item Value Reference Range Interpretation Comments Segs (test code = Segs) 56.1 45.0-75.0 [place] 440271-05-24 21:13:00 Test Item Value Reference Range Interpretation Comments Lymphocytes (test code = Lymphocytes) 32.2 20.0-40.0 [place] 440271-05-24 21:13:00 Test Item Value Reference Range Interpretation Comments Monocytes (test code = Monocytes) 9.1 2.0-12.0 [place] 440271-05-24 21:13:00 Test Item Value Reference Range Interpretation Comments Eosinophils (test code = 2.2 See_Comment [A utomated message] The Eosinophils) system which ge nerated this result tra nsmitted reference range : <=4.0. The reference r kat was not used to int erpret this result as normal/abnormal . [place] 440271-05-24 21:13:00 Test Item Value Reference Range Interpretation Comments Basophils (test code = 0.4 See_Comment [Aut omated message] The Basophils) system which ge nerated this result tra nsmitted reference range : <=1.0. The reference r kat was not used to int erpret this result as normal/abnormal . [place] 440271-05-24 21:13:00 Test Item Value Reference Range Interpretation Comments Neutrophils # (test code = Neutrophils 4.4 1.5-8.1 #) [place] 440271-05-24 21:13:00 Test Item Value Reference Range Interpretation Comments Lymphocytes # (test code = Lymphocytes 2.5 1.0-5.5 #) [place] 440271-05-24 21:13:00 Test Item Value Reference Range Interpretation Comments Monocytes # (test code 0.7 See_Comment [Aut omated message] The = Monocytes #) system which generated this result tra nsmitted reference range : <=0.8. The reference r kat was not used to int erpret this result as normal/abnormal . [place] 440271-05-24 21:13:00 Test Item Value Reference Range Interpretation Comments Eosinophils # (test code 0.2 See_Comment [A utomated message] The = Eosinophils #) system whic h generated this result tra nsmitted reference range : <=0.5. The reference r kat was not used to int erpret this result as normal/abnormal . [place] 440271-05-24 21:13:00 Test Item Value Reference Range Interpretation Comments Microcyte (test code = 1+ *ABN*(01/20/21 Microcyte) 4:13 PM) [place] 656901-05-24 21:13:00 Test Item Value Reference Range Interpretation Comments Glucose Lvl (test code = Glucose Lvl) 89 70-99 [place] 656901-05-24 21:13:00 Test Item Value Reference Range Interpretation Comments BUN (test code = BUN) 8 7-22 [facility]2021-05-24 21:13:00 Test Item Value Reference Range Interpretation Comments Creatinine Lvl (test code = Creatinine 0.55 0.50-1.40 Lvl) [facility]2021-05-24 21:13:00 Test Item Value Reference Range Interpretation Comments Sodium Lvl (test code = Sodium Lvl) 140 135-145 [place] 656901-05-24 21:13:00 Test Item Value Reference Range Interpretation Comments Potassium Lvl (test code = Potassium 3.5 3.5-5.1 Lvl) [facility]2021-05-24 21:13:00 Test Item Value Reference Range Interpretation Comments Chloride Lvl (test code = Chloride Lvl) 109 95-109 [facility]2021-05-24 21:13:00 Test Item Value Reference Range Interpretation Comments CO2 (test code = CO2) 27 24-32 [place] 656901-05-24 21:13:00 Test Item Value Reference Range Interpretation Comments Calcium Lvl (test code = Calcium Lvl) 9.0 8.5-10.5 [facility]2021-05-24 21:13:00 Test Item Value Reference Range Interpretation Comments AGAP (test code = AGAP) 7.5 10.0-20.0 [facility]2021-05-24 21:13:00 Test Item Value Reference Range Interpretation Comments eGFR (test code = eGFR) 126 [facility]2021-05-24 21:13:00 Test Item Value Reference Range Interpretation Comments Lactic Acid Lvl (test code = Lactic 0.6 0.5-2.2 Acid Lvl) [place] 68251021-05-24 21:13:00 Test Item Value Reference Range Interpretation Comments hCG Tot (test code = hCG Tot) no gt [facility] CenterEislshdPAYWICVTRO6522-52-79 21:13:00 Test Item Value Reference Range Interpretation Comments WBC X 10x3 (test code = WBC X 10x3) 7.9 3.7-10.4 [facility] CenterUpuslcpZFSZUQEJTX8810-14-47 21:13:00 Test Item Value Reference Range Interpretation Comments RBC X 10x6 (test code = RBC X 10x6) 4.80 4.20-5.40 [place] 440271-05-24 21:13:00 Test Item Value Reference Range Interpretation Comments Hgb (test code = Hgb) 12.4 12.0-16.0 [place] [address]-05-24 21:13:00 Test Item Value Reference Range Interpretation Comments Hct (test code = Hct) 37.9 36.0-48.0 [place] [address]-05-24 21:13:00 Test Item Value Reference Range Interpretation Comments MCV (test code = MCV) 78.9 80.0-98.0 [place] [address]-05-24 21:13:00 Test Item Value Reference Range Interpretation Comments MCH (test code = MCH) 25.7 pg 27.0-31.0 [place] [address]-05-24 21:13:00 Test Item Value Reference Range Interpretation Comments MCHC (test code = MCHC) 32.6 32.0-36.0 [place] 440271-05-24 21:13:00 Test Item Value Reference Range Interpretation Comments RDW (test code = RDW) 15.5 11.5-14.5 [place] [address]-05-24 21:13:00 Test Item Value Reference Range Interpretation Comments Platelet (test code = Platelet) 243 133-450 [place] [address]-05-24 21:13:00 Test Item Value Reference Range Interpretation Comments MPV (test code = MPV) 9.4 7.4-10.4 [place] [address]-05-24 21:13:00 Test Item Value Reference Range Interpretation Comments Segs (test code = Segs) 56.1 45.0-75.0 [place] 440271-05-24 21:13:00 Test Item Value Reference Range Interpretation Comments Lymphocytes (test code = Lymphocytes) 32.2 20.0-40.0 [place] [address]-05-24 21:13:00 Test Item Value Reference Range Interpretation Comments Monocytes (test code = Monocytes) 9.1 2.0-12.0 [place] [address]-05-24 21:13:00 Test Item Value Reference Range Interpretation Comments Eosinophils (test code = 2.2 See_Comment [A utomated message] The Eosinophils) system which ge nerated this result tra nsmitted reference range : <=4.0. The reference r kat was not used to int erpret this result as normal/abnormal . [place] 440271-05-24 21:13:00 Test Item Value Reference Range Interpretation Comments Basophils (test code = 0.4 See_Comment [Aut omated message] The Basophils) system which ge nerated this result tra nsmitted reference range : <=1.0. The reference r kat was not used to int erpret this result as normal/abnormal . [place] 440271-05-24 21:13:00 Test Item Value Reference Range Interpretation Comments Neutrophils # (test code = Neutrophils 4.4 1.5-8.1 #) [place] 440271-05-24 21:13:00 Test Item Value Reference Range Interpretation Comments Lymphocytes # (test code = Lymphocytes 2.5 1.0-5.5 #) [place] 440271-05-24 21:13:00 Test Item Value Reference Range Interpretation Comments Monocytes # (test code 0.7 See_Comment [Aut omated message] The = Monocytes #) system which generated this result tra nsmitted reference range : <=0.8. The reference r kat was not used to int erpret this result as normal/abnormal . [place] [address]-05-24 21:13:00 Test Item Value Reference Range Interpretation Comments Eosinophils # (test code 0.2 See_Comment [A utomated message] The = Eosinophils #) system whic h generated this result tra nsmitted reference range : <=0.5. The reference r kat was not used to int erpret this result as normal/abnormal . [place] 440271-05-24 21:13:00 Test Item Value Reference Range Interpretation Comments Microcyte (test code = 1+ *ABN*(01/20/21 Microcyte) 4:13 PM) [place] 656901-05-24 21:13:00 Test Item Value Reference Range Interpretation Comments Glucose Lvl (test code = Glucose Lvl) 89 70-99 [place] 656901-05-24 21:13:00 Test Item Value Reference Range Interpretation Comments BUN (test code = BUN) 8 7-22 [place] 656901-05-24 21:13:00 Test Item Value Reference Range Interpretation Comments Creatinine Lvl (test code = Creatinine 0.55 0.50-1.40 Lvl) [facility]2021-05-24 21:13:00 Test Item Value Reference Range Interpretation Comments Sodium Lvl (test code = Sodium Lvl) 140 135-145 [place] 656901-05-24 21:13:00 Test Item Value Reference Range Interpretation Comments Potassium Lvl (test code = Potassium 3.5 3.5-5.1 Lvl) [place] 656901-05-24 21:13:00 Test Item Value Reference Range Interpretation Comments Chloride Lvl (test code = Chloride Lvl) 109 95-109 [place] 656901-05-24 21:13:00 Test Item Value Reference Range Interpretation Comments CO2 (test code = CO2) 27 24-32 [place] 656901-05-24 21:13:00 Test Item Value Reference Range Interpretation Comments Calcium Lvl (test code = Calcium Lvl) 9.0 8.5-10.5 [place] 656901-05-24 21:13:00 Test Item Value Reference Range Interpretation Comments AGAP (test code = AGAP) 7.5 10.0-20.0 [facility]2021-05-24 21:13:00 Test Item Value Reference Range Interpretation Comments eGFR (test code = eGFR) 126 [facility]2021-05-24 21:13:00 Test Item Value Reference Range Interpretation Comments Lactic Acid Lvl (test code = Lactic 0.6 0.5-2.2 Acid Lvl) [facility]CcewzwdWQMVJCBJXFYOW5147-38-72 21:13:00 Test Item Value Reference Range Interpretation Comments hCG Tot (test code = hCG Tot) no gt [facility] CenterSjuvagqCTDGEVNJJZ9185-33-02 21:13:00 Test Item Value Reference Range Interpretation Comments WBC X 10x3 (test code = WBC X 10x3) 7.9 3.7-10.4 [place] 440271-05-24 21:13:00 Test Item Value Reference Range Interpretation Comments RBC X 10x6 (test code = RBC X 10x6) 4.80 4.20-5.40 [place] 440271-05-24 21:13:00 Test Item Value Reference Range Interpretation Comments Hgb (test code = Hgb) 12.4 12.0-16.0 [place] 440271-05-24 21:13:00 Test Item Value Reference Range Interpretation Comments Hct (test code = Hct) 37.9 36.0-48.0 [place] 440271-05-24 21:13:00 Test Item Value Reference Range Interpretation Comments MCV (test code = MCV) 78.9 80.0-98.0 [place] 440271-05-24 21:13:00 Test Item Value Reference Range Interpretation Comments MCH (test code = MCH) 25.7 pg 27.0-31.0 [place] [address]-05-24 21:13:00 Test Item Value Reference Range Interpretation Comments MCHC (test code = MCHC) 32.6 32.0-36.0 [place] [address]-05-24 21:13:00 Test Item Value Reference Range Interpretation Comments RDW (test code = RDW) 15.5 11.5-14.5 [place] 440271-05-24 21:13:00 Test Item Value Reference Range Interpretation Comments Platelet (test code = Platelet) 243 133-450 [place] 440271-05-24 21:13:00 Test Item Value Reference Range Interpretation Comments MPV (test code = MPV) 9.4 7.4-10.4 [place] [address]-05-24 21:13:00 Test Item Value Reference Range Interpretation Comments Segs (test code = Segs) 56.1 45.0-75.0 [place] [address]-05-24 21:13:00 Test Item Value Reference Range Interpretation Comments Lymphocytes (test code = Lymphocytes) 32.2 20.0-40.0 [place] 440271-05-24 21:13:00 Test Item Value Reference Range Interpretation Comments Monocytes (test code = Monocytes) 9.1 2.0-12.0 [place] [address]-05-24 21:13:00 Test Item Value Reference Range Interpretation Comments Eosinophils (test code = 2.2 See_Comment [A utomated message] The Eosinophils) system which ge nerated this result tra nsmitted reference range : <=4.0. The reference r kat was not used to int erpret this result as normal/abnormal . [place] 440271-05-24 21:13:00 Test Item Value Reference Range Interpretation Comments Basophils (test code = 0.4 See_Comment [Aut omated message] The Basophils) system which ge nerated this result tra nsmitted reference range : <=1.0. The reference r kat was not used to int erpret this result as normal/abnormal . [place] 440271-05-24 21:13:00 Test Item Value Reference Range Interpretation Comments Neutrophils # (test code = Neutrophils 4.4 1.5-8.1 #) [place] 440271-05-24 21:13:00 Test Item Value Reference Range Interpretation Comments Lymphocytes # (test code = Lymphocytes 2.5 1.0-5.5 #) [place] 440271-05-24 21:13:00 Test Item Value Reference Range Interpretation Comments Monocytes # (test code 0.7 See_Comment [Aut omated message] The = Monocytes #) system which generated this result tra nsmitted reference range : <=0.8. The reference r kat was not used to int erpret this result as normal/abnormal . [place] [address]-05-24 21:13:00 Test Item Value Reference Range Interpretation Comments Eosinophils # (test code 0.2 See_Comment [A utomated message] The = Eosinophils #) system whic h generated this result tra nsmitted reference range : <=0.5. The reference r kat was not used to int erpret this result as normal/abnormal . [place] 440271-05-24 21:13:00 Test Item Value Reference Range Interpretation Comments Microcyte (test code = 1+ *ABN*(01/20/21 Microcyte) 4:13 PM) [place] [address]-05-24 21:13:00 Test Item Value Reference Range Interpretation Comments Glucose Lvl (test code = Glucose Lvl) 89 70-99 [place] 656901-05-24 21:13:00 Test Item Value Reference Range Interpretation Comments BUN (test code = BUN) 8 7-22 [place] [address]-05-24 21:13:00 Test Item Value Reference Range Interpretation Comments Creatinine Lvl (test code = Creatinine 0.55 0.50-1.40 Lvl) [place] 656901-05-24 21:13:00 Test Item Value Reference Range Interpretation Comments Sodium Lvl (test code = Sodium Lvl) 140 135-145 [place] 656901-05-24 21:13:00 Test Item Value Reference Range Interpretation Comments Potassium Lvl (test code = Potassium 3.5 3.5-5.1 Lvl) [place] 656901-05-24 21:13:00 Test Item Value Reference Range Interpretation Comments Chloride Lvl (test code = Chloride Lvl) 109 95-109 [place] 656901-05-24 21:13:00 Test Item Value Reference Range Interpretation Comments CO2 (test code = CO2) 27 24-32 [place] 656901-05-24 21:13:00 Test Item Value Reference Range Interpretation Comments Calcium Lvl (test code = Calcium Lvl) 9.0 8.5-10.5 [place] 656901-05-24 21:13:00 Test Item Value Reference Range Interpretation Comments AGAP (test code = AGAP) 7.5 10.0-20.0 [place] 656901-05-24 21:13:00 Test Item Value Reference Range Interpretation Comments eGFR (test code = eGFR) 126 [facility]2021-05-24 21:13:00 Test Item Value Reference Range Interpretation Comments Lactic Acid Lvl (test code = Lactic 0.6 0.5-2.2 Acid Lvl) [facility] 21:13:00 Test Item Value Reference Range Interpretation Comments hCG Tot (test code = hCG Tot) no gt [place] 440271-05-24 21:13:00 Test Item Value Reference Range Interpretation Comments WBC X 10x3 (test code = WBC X 10x3) 7.9 3.7-10.4 [place] 440271-05-24 21:13:00 Test Item Value Reference Range Interpretation Comments RBC X 10x6 (test code = RBC X 10x6) 4.80 4.20-5.40 [place] 440271-05-24 21:13:00 Test Item Value Reference Range Interpretation Comments Hgb (test code = Hgb) 12.4 12.0-16.0 [place] 440271-05-24 21:13:00 Test Item Value Reference Range Interpretation Comments Hct (test code = Hct) 37.9 36.0-48.0 [place] 440271-05-24 21:13:00 Test Item Value Reference Range Interpretation Comments MCV (test code = MCV) 78.9 80.0-98.0 [place] 440271-05-24 21:13:00 Test Item Value Reference Range Interpretation Comments MCH (test code = MCH) 25.7 pg 27.0-31.0 [place] 440271-05-24 21:13:00 Test Item Value Reference Range Interpretation Comments MCHC (test code = MCHC) 32.6 32.0-36.0 [place] 440271-05-24 21:13:00 Test Item Value Reference Range Interpretation Comments RDW (test code = RDW) 15.5 11.5-14.5 [place] 440271-05-24 21:13:00 Test Item Value Reference Range Interpretation Comments Platelet (test code = Platelet) 243 133-450 [place] 440271-05-24 21:13:00 Test Item Value Reference Range Interpretation Comments MPV (test code = MPV) 9.4 7.4-10.4 [place] [address]-05-24 21:13:00 Test Item Value Reference Range Interpretation Comments Segs (test code = Segs) 56.1 45.0-75.0 [place] [address]-05-24 21:13:00 Test Item Value Reference Range Interpretation Comments Lymphocytes (test code = Lymphocytes) 32.2 20.0-40.0 [place] 440271-05-24 21:13:00 Test Item Value Reference Range Interpretation Comments Monocytes (test code = Monocytes) 9.1 2.0-12.0 [place] [address]-05-24 21:13:00 Test Item Value Reference Range Interpretation Comments Eosinophils (test code = 2.2 See_Comment [A utomated message] The Eosinophils) system which ge nerated this result tra nsmitted reference range : <=4.0. The reference r kat was not used to int erpret this result as normal/abnormal . [place] [address]-05-24 21:13:00 Test Item Value Reference Range Interpretation Comments Basophils (test code = 0.4 See_Comment [Aut omated message] The Basophils) system which ge nerated this result tra nsmitted reference range : <=1.0. The reference r kat was not used to int erpret this result as normal/abnormal . [place] 440271-05-24 21:13:00 Test Item Value Reference Range Interpretation Comments Neutrophils # (test code = Neutrophils 4.4 1.5-8.1 #) [place] [address]-05-24 21:13:00 Test Item Value Reference Range Interpretation Comments Lymphocytes # (test code = Lymphocytes 2.5 1.0-5.5 #) [place] 440271-05-24 21:13:00 Test Item Value Reference Range Interpretation Comments Monocytes # (test code 0.7 See_Comment [Aut omated message] The = Monocytes #) system which generated this result tra nsmitted reference range : <=0.8. The reference r kat was not used to int erpret this result as normal/abnormal . [place] [address]-05-24 21:13:00 Test Item Value Reference Range Interpretation Comments Eosinophils # (test code 0.2 See_Comment [A utomated message] The = Eosinophils #) system whic h generated this result tra nsmitted reference range : <=0.5. The reference r kat was not used to int erpret this result as normal/abnormal . [place] 440271-05-24 21:13:00 Test Item Value Reference Range Interpretation Comments Microcyte (test code = 1+ *ABN*(01/20/21 Microcyte) 4:13 PM) [place] 656901-05-24 21:13:00 Test Item Value Reference Range Interpretation Comments Glucose Lvl (test code = Glucose Lvl) 89 70-99 [place] 656901-05-24 21:13:00 Test Item Value Reference Range Interpretation Comments BUN (test code = BUN) 8 7-22 [place] 656901-05-24 21:13:00 Test Item Value Reference Range Interpretation Comments Creatinine Lvl (test code = Creatinine 0.55 0.50-1.40 Lvl) [place] 656901-05-24 21:13:00 Test Item Value Reference Range Interpretation Comments Sodium Lvl (test code = Sodium Lvl) 140 135-145 [place] 656901-05-24 21:13:00 Test Item Value Reference Range Interpretation Comments Potassium Lvl (test code = Potassium 3.5 3.5-5.1 Lvl) [place] 656901-05-24 21:13:00 Test Item Value Reference Range Interpretation Comments Chloride Lvl (test code = Chloride Lvl) 109 95-109 [place] 656901-05-24 21:13:00 Test Item Value Reference Range Interpretation Comments CO2 (test code = CO2) 27 24-32 [place] 656901-05-24 21:13:00 Test Item Value Reference Range Interpretation Comments Calcium Lvl (test code = Calcium Lvl) 9.0 8.5-10.5 [place] 656901-05-24 21:13:00 Test Item Value Reference Range Interpretation Comments AGAP (test code = AGAP) 7.5 10.0-20.0 [place] 656901-05-24 21:13:00 Test Item Value Reference Range Interpretation Comments eGFR (test code = eGFR) 126 [place] 656901-05-24 21:13:00 Test Item Value Reference Range Interpretation Comments Lactic Acid Lvl (test code = Lactic 0.6 0.5-2.2 Acid Lvl) [facility] 21:13:00 Test Item Value Reference Range Interpretation Comments hCG Tot (test code = hCG Tot) no gt [place] 440271-05-24 21:13:00 Test Item Value Reference Range Interpretation Comments WBC X 10x3 (test code = WBC X 10x3) 7.9 3.7-10.4 [place] 440271-05-24 21:13:00 Test Item Value Reference Range Interpretation Comments RBC X 10x6 (test code = RBC X 10x6) 4.80 4.20-5.40 [place] [address]-05-24 21:13:00 Test Item Value Reference Range Interpretation Comments Hgb (test code = Hgb) 12.4 12.0-16.0 [place] [address]-05-24 21:13:00 Test Item Value Reference Range Interpretation Comments Hct (test code = Hct) 37.9 36.0-48.0 [place] 440271-05-24 21:13:00 Test Item Value Reference Range Interpretation Comments MCV (test code = MCV) 78.9 80.0-98.0 [place] 440271-05-24 21:13:00 Test Item Value Reference Range Interpretation Comments MCH (test code = MCH) 25.7 pg 27.0-31.0 [place] 440271-05-24 21:13:00 Test Item Value Reference Range Interpretation Comments MCHC (test code = MCHC) 32.6 32.0-36.0 [place] [address]-05-24 21:13:00 Test Item Value Reference Range Interpretation Comments RDW (test code = RDW) 15.5 11.5-14.5 [place] [address]-05-24 21:13:00 Test Item Value Reference Range Interpretation Comments Platelet (test code = Platelet) 243 133-450 [place] [address]-05-24 21:13:00 Test Item Value Reference Range Interpretation Comments MPV (test code = MPV) 9.4 7.4-10.4 [place] [address]-05-24 21:13:00 Test Item Value Reference Range Interpretation Comments Segs (test code = Segs) 56.1 45.0-75.0 [place] [address]-05-24 21:13:00 Test Item Value Reference Range Interpretation Comments Lymphocytes (test code = Lymphocytes) 32.2 20.0-40.0 [place] [address]-05-24 21:13:00 Test Item Value Reference Range Interpretation Comments Monocytes (test code = Monocytes) 9.1 2.0-12.0 [place] [address]-05-24 21:13:00 Test Item Value Reference Range Interpretation Comments Eosinophils (test code = 2.2 See_Comment [A utomated message] The Eosinophils) system which ge nerated this result tra nsmitted reference range : <=4.0. The reference r kat was not used to int erpret this result as normal/abnormal . [place] [address]-05-24 21:13:00 Test Item Value Reference Range Interpretation Comments Basophils (test code = 0.4 See_Comment [Aut omated message] The Basophils) system which ge nerated this result tra nsmitted reference range : <=1.0. The reference r kat was not used to int erpret this result as normal/abnormal . [place] 440271-05-24 21:13:00 Test Item Value Reference Range Interpretation Comments Neutrophils # (test code = Neutrophils 4.4 1.5-8.1 #) [place] 440271-05-24 21:13:00 Test Item Value Reference Range Interpretation Comments Lymphocytes # (test code = Lymphocytes 2.5 1.0-5.5 #) [place] 440271-05-24 21:13:00 Test Item Value Reference Range Interpretation Comments Monocytes # (test code 0.7 See_Comment [Aut omated message] The = Monocytes #) system which generated this result tra nsmitted reference range : <=0.8. The reference r kat was not used to int erpret this result as normal/abnormal . [place] 440271-05-24 21:13:00 Test Item Value Reference Range Interpretation Comments Eosinophils # (test code 0.2 See_Comment [A utomated message] The = Eosinophils #) system whic h generated this result tra nsmitted reference range : <=0.5. The reference r kat was not used to int erpret this result as normal/abnormal . [place] 440271-05-24 21:13:00 Test Item Value Reference Range Interpretation Comments Microcyte (test code = 1+ *ABN*(01/20/21 Microcyte) 4:13 PM) [place] 656901-05-24 21:13:00 Test Item Value Reference Range Interpretation Comments Glucose Lvl (test code = Glucose Lvl) 89 70-99 [place] 656901-05-24 21:13:00 Test Item Value Reference Range Interpretation Comments BUN (test code = BUN) 8 7-22 [place] 656901-05-24 21:13:00 Test Item Value Reference Range Interpretation Comments Creatinine Lvl (test code = Creatinine 0.55 0.50-1.40 Lvl) [place] 656901-05-24 21:13:00 Test Item Value Reference Range Interpretation Comments Sodium Lvl (test code = Sodium Lvl) 140 135-145 [place] 656901-05-24 21:13:00 Test Item Value Reference Range Interpretation Comments Potassium Lvl (test code = Potassium 3.5 3.5-5.1 Lvl) [place] 656901-05-24 21:13:00 Test Item Value Reference Range Interpretation Comments Chloride Lvl (test code = Chloride Lvl) 109 95-109 [place] 656901-05-24 21:13:00 Test Item Value Reference Range Interpretation Comments CO2 (test code = CO2) 27 24-32 [place] 656901-05-24 21:13:00 Test Item Value Reference Range Interpretation Comments Calcium Lvl (test code = Calcium Lvl) 9.0 8.5-10.5 [place] 656901-05-24 21:13:00 Test Item Value Reference Range Interpretation Comments AGAP (test code = AGAP) 7.5 10.0-20.0 [address]05-24 21:13:00 Test Item Value Reference Range Interpretation Comments eGFR (test code = eGFR) 126 [place] 656901-05-24 21:13:00 Test Item Value Reference Range Interpretation Comments Lactic Acid Lvl (test code = Lactic 0.6 0.5-2.2 Acid Lvl) [facility] 21:13:00 Test Item Value Reference Range Interpretation Comments hCG Tot (test code = hCG Tot) no gt [place] 440271-05-24 21:13:00 Test Item Value Reference Range Interpretation Comments WBC X 10x3 (test code = WBC X 10x3) 7.9 3.7-10.4 [place] 440271-05-24 21:13:00 Test Item Value Reference Range Interpretation Comments RBC X 10x6 (test code = RBC X 10x6) 4.80 4.20-5.40 [place] [address]-05-24 21:13:00 Test Item Value Reference Range Interpretation Comments Hgb (test code = Hgb) 12.4 12.0-16.0 [place] [address]-05-24 21:13:00 Test Item Value Reference Range Interpretation Comments Hct (test code = Hct) 37.9 36.0-48.0 [place] [address]-05-24 21:13:00 Test Item Value Reference Range Interpretation Comments MCV (test code = MCV) 78.9 80.0-98.0 [place] 440271-05-24 21:13:00 Test Item Value Reference Range Interpretation Comments MCH (test code = MCH) 25.7 pg 27.0-31.0 [facility] CenterEphxrdsUPOTMMBNQA0882-92-73 21:13:00 Test Item Value Reference Range Interpretation Comments MCHC (test code = MCHC) 32.6 32.0-36.0 [place] 440271-05-24 21:13:00 Test Item Value Reference Range Interpretation Comments RDW (test code = RDW) 15.5 11.5-14.5 [place] 440271-05-24 21:13:00 Test Item Value Reference Range Interpretation Comments Platelet (test code = Platelet) 243 133-450 [facility] CenterSkyowdaTHWSVASWYF5842-65-58 21:13:00 Test Item Value Reference Range Interpretation Comments MPV (test code = MPV) 9.4 7.4-10.4 [place] 440271-05-24 21:13:00 Test Item Value Reference Range Interpretation Comments Segs (test code = Segs) 56.1 45.0-75.0 [place] 440271-05-24 21:13:00 Test Item Value Reference Range Interpretation Comments Lymphocytes (test code = Lymphocytes) 32.2 20.0-40.0 [facility] CenterJslsmmfPWJEGJFYTH9932-50-67 21:13:00 Test Item Value Reference Range Interpretation Comments Monocytes (test code = Monocytes) 9.1 2.0-12.0 [place] 440271-05-24 21:13:00 Test Item Value Reference Range Interpretation Comments Eosinophils (test code = 2.2 See_Comment [A utomated message] The Eosinophils) system which ge nerated this result tra nsmitted reference range : <=4.0. The reference r kat was not used to int erpret this result as normal/abnormal . [place] 440271-05-24 21:13:00 Test Item Value Reference Range Interpretation Comments Basophils (test code = 0.4 See_Comment [Aut omated message] The Basophils) system which ge nerated this result tra nsmitted reference range : <=1.0. The reference r kat was not used to int erpret this result as normal/abnormal . [facility] CenterGarfnrcITYWKSWSEV3413-56-53 21:13:00 Test Item Value Reference Range Interpretation Comments Neutrophils # (test code = Neutrophils 4.4 1.5-8.1 #) [place] 440271-05-24 21:13:00 Test Item Value Reference Range Interpretation Comments Lymphocytes # (test code = Lymphocytes 2.5 1.0-5.5 #) [place] 440271-05-24 21:13:00 Test Item Value Reference Range Interpretation Comments Monocytes # (test code 0.7 See_Comment [Aut omated message] The = Monocytes #) system which generated this result tra nsmitted reference range : <=0.8. The reference r kat was not used to int erpret this result as normal/abnormal . [place] [address]-05-24 21:13:00 Test Item Value Reference Range Interpretation Comments Eosinophils # (test code 0.2 See_Comment [A utomated message] The = Eosinophils #) system whic h generated this result tra nsmitted reference range : <=0.5. The reference r kat was not used to int erpret this result as normal/abnormal . [place] 440271-05-24 21:13:00 Test Item Value Reference Range Interpretation Comments Microcyte (test code = 1+ *ABN*(01/20/21 Microcyte) 4:13 PM) [place] [address]-05-24 21:13:00 Test Item Value Reference Range Interpretation Comments Glucose Lvl (test code = Glucose Lvl) 89 70-99 [place] 656901-05-24 21:13:00 Test Item Value Reference Range Interpretation Comments BUN (test code = BUN) 8 7-22 [place] [address]-05-24 21:13:00 Test Item Value Reference Range Interpretation Comments Creatinine Lvl (test code = Creatinine 0.55 0.50-1.40 Lvl) [place] 656901-05-24 21:13:00 Test Item Value Reference Range Interpretation Comments Sodium Lvl (test code = Sodium Lvl) 140 135-145 [place] 656901-05-24 21:13:00 Test Item Value Reference Range Interpretation Comments Potassium Lvl (test code = Potassium 3.5 3.5-5.1 Lvl) [place] 656901-05-24 21:13:00 Test Item Value Reference Range Interpretation Comments Chloride Lvl (test code = Chloride Lvl) 109 95-109 [facility]2021-05-24 21:13:00 Test Item Value Reference Range Interpretation Comments CO2 (test code = CO2) 27 24-32 [place] 656901-05-24 21:13:00 Test Item Value Reference Range Interpretation Comments Calcium Lvl (test code = Calcium Lvl) 9.0 8.5-10.5 [place] 656901-05-24 21:13:00 Test Item Value Reference Range Interpretation Comments AGAP (test code = AGAP) 7.5 10.0-20.0 [place] 656901-05-24 21:13:00 Test Item Value Reference Range Interpretation Comments eGFR (test code = eGFR) 126 [facility]2021-05-24 21:13:00 Test Item Value Reference Range Interpretation Comments Lactic Acid Lvl (test code = Lactic 0.6 0.5-2.2 Acid Lvl) [place] 68251021-05-24 21:13:00 Test Item Value Reference Range Interpretation Comments hCG Tot (test code = hCG Tot) no gt [facility] CenterKhrtgspHVLTZFJXHG6233-65-91 21:13:00 Test Item Value Reference Range Interpretation Comments WBC X 10x3 (test code = WBC X 10x3) 7.9 3.7-10.4 [facility] CenterIiwaeafJLWVYHWJTS9161-20-77 21:13:00 Test Item Value Reference Range Interpretation Comments RBC X 10x6 (test code = RBC X 10x6) 4.80 4.20-5.40 [place] 440271-05-24 21:13:00 Test Item Value Reference Range Interpretation Comments Hgb (test code = Hgb) 12.4 12.0-16.0 [place] 440271-05-24 21:13:00 Test Item Value Reference Range Interpretation Comments Hct (test code = Hct) 37.9 36.0-48.0 [place] 440271-05-24 21:13:00 Test Item Value Reference Range Interpretation Comments MCV (test code = MCV) 78.9 80.0-98.0 [place] 440271-05-24 21:13:00 Test Item Value Reference Range Interpretation Comments MCH (test code = MCH) 25.7 pg 27.0-31.0 [place] [address]-05-24 21:13:00 Test Item Value Reference Range Interpretation Comments MCHC (test code = MCHC) 32.6 32.0-36.0 [place] [address]-05-24 21:13:00 Test Item Value Reference Range Interpretation Comments RDW (test code = RDW) 15.5 11.5-14.5 [place] [address]-05-24 21:13:00 Test Item Value Reference Range Interpretation Comments Platelet (test code = Platelet) 243 133-450 [place] 440271-05-24 21:13:00 Test Item Value Reference Range Interpretation Comments MPV (test code = MPV) 9.4 7.4-10.4 [place] [address]-05-24 21:13:00 Test Item Value Reference Range Interpretation Comments Segs (test code = Segs) 56.1 45.0-75.0 [place] [address]-05-24 21:13:00 Test Item Value Reference Range Interpretation Comments Lymphocytes (test code = Lymphocytes) 32.2 20.0-40.0 [place] [address]-05-24 21:13:00 Test Item Value Reference Range Interpretation Comments Monocytes (test code = Monocytes) 9.1 2.0-12.0 [place] [address]-05-24 21:13:00 Test Item Value Reference Range Interpretation Comments Eosinophils (test code = 2.2 See_Comment [A utomated message] The Eosinophils) system which ge nerated this result tra nsmitted reference range : <=4.0. The reference r kat was not used to int erpret this result as normal/abnormal . [place] 440271-05-24 21:13:00 Test Item Value Reference Range Interpretation Comments Basophils (test code = 0.4 See_Comment [Aut omated message] The Basophils) system which ge nerated this result tra nsmitted reference range : <=1.0. The reference r kat was not used to int erpret this result as normal/abnormal . [place] [address]-05-24 21:13:00 Test Item Value Reference Range Interpretation Comments Neutrophils # (test code = Neutrophils 4.4 1.5-8.1 #) [place] [address]-05-24 21:13:00 Test Item Value Reference Range Interpretation Comments Lymphocytes # (test code = Lymphocytes 2.5 1.0-5.5 #) [place] 440271-05-24 21:13:00 Test Item Value Reference Range Interpretation Comments Monocytes # (test code 0.7 See_Comment [Aut omated message] The = Monocytes #) system which generated this result tra nsmitted reference range : <=0.8. The reference r kat was not used to int erpret this result as normal/abnormal . [place] 440271-05-24 21:13:00 Test Item Value Reference Range Interpretation Comments Eosinophils # (test code 0.2 See_Comment [A utomated message] The = Eosinophils #) system whic h generated this result tra nsmitted reference range : <=0.5. The reference r kat was not used to int erpret this result as normal/abnormal . [place] 440271-05-24 21:13:00 Test Item Value Reference Range Interpretation Comments Microcyte (test code = 1+ *ABN*(01/20/21 Microcyte) 4:13 PM) [place] 656901-05-24 21:13:00 Test Item Value Reference Range Interpretation Comments Glucose Lvl (test code = Glucose Lvl) 89 70-99 [place] 656901-05-24 21:13:00 Test Item Value Reference Range Interpretation Comments BUN (test code = BUN) 8 7-22 [place] 656901-05-24 21:13:00 Test Item Value Reference Range Interpretation Comments Creatinine Lvl (test code = Creatinine 0.55 0.50-1.40 Lvl) [place] 656901-05-24 21:13:00 Test Item Value Reference Range Interpretation Comments Sodium Lvl (test code = Sodium Lvl) 140 135-145 [place] 656901-05-24 21:13:00 Test Item Value Reference Range Interpretation Comments Potassium Lvl (test code = Potassium 3.5 3.5-5.1 Lvl) [place] 656901-05-24 21:13:00 Test Item Value Reference Range Interpretation Comments Chloride Lvl (test code = Chloride Lvl) 109 95-109 [place] 656901-05-24 21:13:00 Test Item Value Reference Range Interpretation Comments CO2 (test code = CO2) 27 24-32 [facility]2021-05-24 21:13:00 Test Item Value Reference Range Interpretation Comments Calcium Lvl (test code = Calcium Lvl) 9.0 8.5-10.5 [facility]2021-05-24 21:13:00 Test Item Value Reference Range Interpretation Comments AGAP (test code = AGAP) 7.5 10.0-20.0 [facility]2021-05-24 21:13:00 Test Item Value Reference Range Interpretation Comments eGFR (test code = eGFR) 126 [facility]2021-05-24 21:13:00 Test Item Value Reference Range Interpretation Comments Lactic Acid Lvl (test code = Lactic 0.6 0.5-2.2 Acid Lvl) [place] 68251021-05-24 21:13:00 Test Item Value Reference Range Interpretation Comments hCG Tot (test code = hCG Tot) no gt [facility] CenterMysomczSJMNQSDHZW9011-52-05 21:13:00 Test Item Value Reference Range Interpretation Comments WBC X 10x3 (test code = WBC X 10x3) 7.9 3.7-10.4 [facility] CenterZwpppfjOFNJONWCSH3107-82-78 21:13:00 Test Item Value Reference Range Interpretation Comments RBC X 10x6 (test code = RBC X 10x6) 4.80 4.20-5.40 [place] 440271-05-24 21:13:00 Test Item Value Reference Range Interpretation Comments Hgb (test code = Hgb) 12.4 12.0-16.0 [place] 440271-05-24 21:13:00 Test Item Value Reference Range Interpretation Comments Hct (test code = Hct) 37.9 36.0-48.0 [place] 440271-05-24 21:13:00 Test Item Value Reference Range Interpretation Comments MCV (test code = MCV) 78.9 80.0-98.0 [place] 440271-05-24 21:13:00 Test Item Value Reference Range Interpretation Comments MCH (test code = MCH) 25.7 pg 27.0-31.0 [place] 440271-05-24 21:13:00 Test Item Value Reference Range Interpretation Comments MCHC (test code = MCHC) 32.6 32.0-36.0 [place] [address]-05-24 21:13:00 Test Item Value Reference Range Interpretation Comments RDW (test code = RDW) 15.5 11.5-14.5 [place] 440271-05-24 21:13:00 Test Item Value Reference Range Interpretation Comments Platelet (test code = Platelet) 243 133-450 [place] 440271-05-24 21:13:00 Test Item Value Reference Range Interpretation Comments MPV (test code = MPV) 9.4 7.4-10.4 [place] [address]-05-24 21:13:00 Test Item Value Reference Range Interpretation Comments Segs (test code = Segs) 56.1 45.0-75.0 [place] [address]-05-24 21:13:00 Test Item Value Reference Range Interpretation Comments Lymphocytes (test code = Lymphocytes) 32.2 20.0-40.0 [place] [address]-05-24 21:13:00 Test Item Value Reference Range Interpretation Comments Monocytes (test code = Monocytes) 9.1 2.0-12.0 [place] 440271-05-24 21:13:00 Test Item Value Reference Range Interpretation Comments Eosinophils (test code = 2.2 See_Comment [A utomated message] The Eosinophils) system which ge nerated this result tra nsmitted reference range : <=4.0. The reference r kat was not used to int erpret this result as normal/abnormal . [place] 440271-05-24 21:13:00 Test Item Value Reference Range Interpretation Comments Basophils (test code = 0.4 See_Comment [Aut omated message] The Basophils) system which ge nerated this result tra nsmitted reference range : <=1.0. The reference r kat was not used to int erpret this result as normal/abnormal . [place] 440271-05-24 21:13:00 Test Item Value Reference Range Interpretation Comments Neutrophils # (test code = Neutrophils 4.4 1.5-8.1 #) [place] 440271-05-24 21:13:00 Test Item Value Reference Range Interpretation Comments Lymphocytes # (test code = Lymphocytes 2.5 1.0-5.5 #) [place] 440271-05-24 21:13:00 Test Item Value Reference Range Interpretation Comments Monocytes # (test code 0.7 See_Comment [Aut omated message] The = Monocytes #) system which generated this result tra nsmitted reference range : <=0.8. The reference r kat was not used to int erpret this result as normal/abnormal . [facility] CenterGnzdytqZIUNHHWPPJ7622-43-96 21:13:00 Test Item Value Reference Range Interpretation Comments Eosinophils # (test code 0.2 See_Comment [A utomated message] The = Eosinophils #) system whic h generated this result tra nsmitted reference range : <=0.5. The reference r kat was not used to int erpret this result as normal/abnormal . [place] 440271-05-24 21:13:00 Test Item Value Reference Range Interpretation Comments Microcyte (test code = 1+ *ABN*(01/20/21 Microcyte) 4:13 PM) [place] 656901-05-24 21:13:00 Test Item Value Reference Range Interpretation Comments Glucose Lvl (test code = Glucose Lvl) 89 70-99 [place] 656901-05-24 21:13:00 Test Item Value Reference Range Interpretation Comments BUN (test code = BUN) 8 - [place] 656901-05-24 21:13:00 Test Item Value Reference Range Interpretation Comments Creatinine Lvl (test code = Creatinine 0.55 0.50-1.40 Lvl) [facility]2021-05-24 21:13:00 Test Item Value Reference Range Interpretation Comments Sodium Lvl (test code = Sodium Lvl) 140 135-145 [place] 656901-05-24 21:13:00 Test Item Value Reference Range Interpretation Comments Glucose Lvl (test code = Glucose Lvl) 89 70-99 [place] 656901-05-24 21:13:00 Test Item Value Reference Range Interpretation Comments BUN (test code = BUN) 8 - [place] 656901-05-24 21:13:00 Test Item Value Reference Range Interpretation Comments Creatinine Lvl (test code = Creatinine 0.55 0.50-1.40 Lvl) [place] 656901-05-24 21:13:00 Test Item Value Reference Range Interpretation Comments Sodium Lvl (test code = Sodium Lvl) 140 135-145 [facility]2021-05-24 21:13:00 Test Item Value Reference Range Interpretation Comments Potassium Lvl (test code = Potassium 3.5 3.5-5.1 Lvl) [facility]2021-05-24 21:13:00 Test Item Value Reference Range Interpretation Comments Chloride Lvl (test code = Chloride Lvl) 109 95-109 [place] 656901-05-24 21:13:00 Test Item Value Reference Range Interpretation Comments CO2 (test code = CO2) 27 24-32 [place] 656901-05-24 21:13:00 Test Item Value Reference Range Interpretation Comments Calcium Lvl (test code = Calcium Lvl) 9.0 8.5-10.5 [place] 656901-05-24 21:13:00 Test Item Value Reference Range Interpretation Comments AGAP (test code = AGAP) 7.5 10.0-20.0 [place] 656901-05-24 21:13:00 Test Item Value Reference Range Interpretation Comments eGFR (test code = eGFR) 126 [facility] [facility]2021-05-24 21:13:00 Test Item Value Reference Range Interpretation Comments Potassium Lvl (test code = Potassium 3.5 3.5-5.1 Lvl) [place] 656901-05-24 21:13:00 Test Item Value Reference Range Interpretation Comments Lactic Acid Lvl (test code = Lactic 0.6 0.5-2.2 Acid Lvl) [place] [id number] 21:13:00 Test Item Value Reference Range Interpretation Comments hCG Tot (test code = hCG Tot) no gt [facility] CenterAhftewjDRDJZEEJMG[facility] 21:13:00 Test Item Value Reference Range Interpretation Comments WBC X 10x3 (test code = WBC X 10x3) 7.9 3.7-10.4 [place] 440271-05-24 21:13:00 Test Item Value Reference Range Interpretation Comments RBC X 10x6 (test code = RBC X 10x6) 4.80 4.20-5.40 [place] 440271-05-24 21:13:00 Test Item Value Reference Range Interpretation Comments Hgb (test code = Hgb) 12.4 12.0-16.0 [place] 440271-05-24 21:13:00 Test Item Value Reference Range Interpretation Comments Hct (test code = Hct) 37.9 36.0-48.0 [place] 440271-05-24 21:13:00 Test Item Value Reference Range Interpretation Comments MCV (test code = MCV) 78.9 80.0-98.0 [place] 440271-05-24 21:13:00 Test Item Value Reference Range Interpretation Comments MCH (test code = MCH) 25.7 pg 27.0-31.0 [facility] CenterIpzguhqBCSWKYVGXU0175-81-68 21:13:00 Test Item Value Reference Range Interpretation Comments MCHC (test code = MCHC) 32.6 32.0-36.0 [place] [address]-05-24 21:13:00 Test Item Value Reference Range Interpretation Comments RDW (test code = RDW) 15.5 11.5-14.5 [facility]2021-05-24 21:13:00 Test Item Value Reference Range Interpretation Comments Chloride Lvl (test code = Chloride Lvl) 109 95-109 [facility] CenterYogyfgaGWOTDBHIAD6366-52-95 21:13:00 Test Item Value Reference Range Interpretation Comments Platelet (test code = Platelet) 243 133-450 [place] 440271-05-24 21:13:00 Test Item Value Reference Range Interpretation Comments MPV (test code = MPV) 9.4 7.4-10.4 [place] 440271-05-24 21:13:00 Test Item Value Reference Range Interpretation Comments Segs (test code = Segs) 56.1 45.0-75.0 [place] 440271-05-24 21:13:00 Test Item Value Reference Range Interpretation Comments Lymphocytes (test code = Lymphocytes) 32.2 20.0-40.0 [place] [address]-05-24 21:13:00 Test Item Value Reference Range Interpretation Comments Monocytes (test code = Monocytes) 9.1 2.0-12.0 [place] [address]-05-24 21:13:00 Test Item Value Reference Range Interpretation Comments Eosinophils (test code = 2.2 See_Comment [A utomated message] The Eosinophils) system which ge nerated this result tra nsmitted reference range : <=4.0. The reference r kat was not used to int erpret this result as normal/abnormal . [place] 440271-05-24 21:13:00 Test Item Value Reference Range Interpretation Comments Basophils (test code = 0.4 See_Comment [Aut omated message] The Basophils) system which ge nerated this result tra nsmitted reference range : <=1.0. The reference r kat was not used to int erpret this result as normal/abnormal . [place] 440271-05-24 21:13:00 Test Item Value Reference Range Interpretation Comments Neutrophils # (test code = Neutrophils 4.4 1.5-8.1 #) [place] 440271-05-24 21:13:00 Test Item Value Reference Range Interpretation Comments Lymphocytes # (test code = Lymphocytes 2.5 1.0-5.5 #) [place] 440271-05-24 21:13:00 Test Item Value Reference Range Interpretation Comments Monocytes # (test code 0.7 See_Comment [Aut omated message] The = Monocytes #) system which generated this result tra nsmitted reference range : <=0.8. The reference r kat was not used to int erpret this result as normal/abnormal . [facility]2021-05-24 21:13:00 Test Item Value Reference Range Interpretation Comments CO2 (test code = CO2) 27 -32 [place] 440271-05-24 21:13:00 Test Item Value Reference Range Interpretation Comments Eosinophils # (test code 0.2 See_Comment [A utomated message] The = Eosinophils #) system whic h generated this result tra nsmitted reference range : <=0.5. The reference r kat was not used to int erpret this result as normal/abnormal . [place] 440271-05-24 21:13:00 Test Item Value Reference Range Interpretation Comments Microcyte (test code = 1+ *ABN*(01/20/21 Microcyte) 4:13 PM) [place] [address]-05-24 21:13:00 Test Item Value Reference Range Interpretation Comments Calcium Lvl (test code = Calcium Lvl) 9.0 8.5-10.5 [place] 656901-05-24 21:13:00 Test Item Value Reference Range Interpretation Comments AGAP (test code = AGAP) 7.5 10.0-20.0 [facility]2021-05-24 21:13:00 Test Item Value Reference Range Interpretation Comments eGFR (test code = eGFR) 126 [facility]2021-05-24 21:13:00 Test Item Value Reference Range Interpretation Comments Lactic Acid Lvl (test code = Lactic 0.6 0.5-2.2 Acid Lvl) [place] 68251021-05-24 21:13:00 Test Item Value Reference Range Interpretation Comments hCG Tot (test code = hCG Tot) no gt [facility] CenterDblecytUUHGJZCFIE2020-59-79 21:13:00 Test Item Value Reference Range Interpretation Comments WBC X 10x3 (test code = WBC X 10x3) 7.9 3.7-10.4 [facility] CenterBzvidzcTCNREPOQTY3155-33-30 21:13:00 Test Item Value Reference Range Interpretation Comments RBC X 10x6 (test code = RBC X 10x6) 4.80 4.20-5.40 [facility] CenterScarfjlVSYNCNWRQI9233-38-54 21:13:00 Test Item Value Reference Range Interpretation Comments Hgb (test code = Hgb) 12.4 12.0-16.0 [facility] CenterYfsobawKENOKFFGKP4345-70-89 21:13:00 Test Item Value Reference Range Interpretation Comments Hct (test code = Hct) 37.9 36.0-48.0 [facility] CenterYrnzixsHTHIFEVDYQ8277-33-23 21:13:00 Test Item Value Reference Range Interpretation Comments MCV (test code = MCV) 78.9 80.0-98.0 [place] [address]-05-24 21:13:00 Test Item Value Reference Range Interpretation Comments MCH (test code = MCH) 25.7 pg 27.0-31.0 [facility] CenterUobkkjzVLNCLZODSK7494-34-37 21:13:00 Test Item Value Reference Range Interpretation Comments MCHC (test code = MCHC) 32.6 32.0-36.0 [facility] CenterFyyhkqfZLFIYRQSVK4132-44-49 21:13:00 Test Item Value Reference Range Interpretation Comments RDW (test code = RDW) 15.5 11.5-14.5 [facility] CenterLtmtynpCWYCPBBQRM7089-05-67 21:13:00 Test Item Value Reference Range Interpretation Comments Platelet (test code = Platelet) 243 133-450 [facility] CenterIidtnsbTNBONBXPGX0034-66-85 21:13:00 Test Item Value Reference Range Interpretation Comments MPV (test code = MPV) 9.4 7.4-10.4 [place] 440271-05-24 21:13:00 Test Item Value Reference Range Interpretation Comments Segs (test code = Segs) 56.1 45.0-75.0 [place] 440271-05-24 21:13:00 Test Item Value Reference Range Interpretation Comments Lymphocytes (test code = Lymphocytes) 32.2 20.0-40.0 [place] [address]-05-24 21:13:00 Test Item Value Reference Range Interpretation Comments Monocytes (test code = Monocytes) 9.1 2.0-12.0 [place] 440271-05-24 21:13:00 Test Item Value Reference Range Interpretation Comments Eosinophils (test code = 2.2 See_Comment [A utomated message] The Eosinophils) system which ge nerated this result tra nsmitted reference range : <=4.0. The reference r kat was not used to int erpret this result as normal/abnormal . [facility] CenterSwgocirVONQRGLQVC9847-22-14 21:13:00 Test Item Value Reference Range Interpretation Comments Basophils (test code = 0.4 See_Comment [Aut omated message] The Basophils) system which ge nerated this result tra nsmitted reference range : <=1.0. The reference r kat was not used to int erpret this result as normal/abnormal . [facility] CenterEvuefscMZFKSEVBQV7521-32-01 21:13:00 Test Item Value Reference Range Interpretation Comments Neutrophils # (test code = Neutrophils 4.4 1.5-8.1 #) [place] 440271-05-24 21:13:00 Test Item Value Reference Range Interpretation Comments Lymphocytes # (test code = Lymphocytes 2.5 1.0-5.5 #) [place] [address]-05-24 21:13:00 Test Item Value Reference Range Interpretation Comments Monocytes # (test code 0.7 See_Comment [Aut omated message] The = Monocytes #) system which generated this result tra nsmitted reference range : <=0.8. The reference r kat was not used to int erpret this result as normal/abnormal . [place] 440271-05-24 21:13:00 Test Item Value Reference Range Interpretation Comments Eosinophils # (test code 0.2 See_Comment [A utomated message] The = Eosinophils #) system whic h generated this result tra nsmitted reference range : <=0.5. The reference r kat was not used to int erpret this result as normal/abnormal . [place] 440271-05-24 21:13:00 Test Item Value Reference Range Interpretation Comments Microcyte (test code = 1+ *ABN*(01/20/21 Microcyte) 4:13 PM) [place] 656901-05-24 21:13:00 Test Item Value Reference Range Interpretation Comments Glucose Lvl (test code = Glucose Lvl) 89 70-99 [facility]2021-05-24 21:13:00 Test Item Value Reference Range Interpretation Comments BUN (test code = BUN) 8 7-22 [place] 656901-05-24 21:13:00 Test Item Value Reference Range Interpretation Comments Creatinine Lvl (test code = Creatinine 0.55 0.50-1.40 Lvl) [place] 656901-05-24 21:13:00 Test Item Value Reference Range Interpretation Comments Sodium Lvl (test code = Sodium Lvl) 140 135-145 [place] 656901-05-24 21:13:00 Test Item Value Reference Range Interpretation Comments Potassium Lvl (test code = Potassium 3.5 3.5-5.1 Lvl) [place] 656901-05-24 21:13:00 Test Item Value Reference Range Interpretation Comments Chloride Lvl (test code = Chloride Lvl) 109 95-109 [place] 656901-05-24 21:13:00 Test Item Value Reference Range Interpretation Comments CO2 (test code = CO2) 27 24-32 [place] 656901-05-24 21:13:00 Test Item Value Reference Range Interpretation Comments Calcium Lvl (test code = Calcium Lvl) 9.0 8.5-10.5 [place] 656901-05-24 21:13:00 Test Item Value Reference Range Interpretation Comments AGAP (test code = AGAP) 7.5 10.0-20.0 [place] 656901-05-24 21:13:00 Test Item Value Reference Range Interpretation Comments eGFR (test code = eGFR) 126 [facility]2021-05-24 21:13:00 Test Item Value Reference Range Interpretation Comments Lactic Acid Lvl (test code = Lactic 0.6 0.5-2.2 Acid Lvl) [place] 68251021-05-24 21:13:00 Test Item Value Reference Range Interpretation Comments hCG Tot (test code = hCG Tot) no gt [facility] CenterEvlzxddATDYBDAKAS2226-35-43 21:13:00 Test Item Value Reference Range Interpretation Comments WBC X 10x3 (test code = WBC X 10x3) 7.9 3.7-10.4 [facility] CenterIigftaxXVQKTFIGAA5961-55-82 21:13:00 Test Item Value Reference Range Interpretation Comments RBC X 10x6 (test code = RBC X 10x6) 4.80 4.20-5.40 [facility] CenterOygiiwmBFOUSMVDED1110-35-92 21:13:00 Test Item Value Reference Range Interpretation Comments Hgb (test code = Hgb) 12.4 12.0-16.0 [facility] CenterPcxqvdiOUGSZODUQB9295-05-48 21:13:00 Test Item Value Reference Range Interpretation Comments Hct (test code = Hct) 37.9 36.0-48.0 [facility] CenterZzvlxbtHSQZZRHYOX7158-07-72 21:13:00 Test Item Value Reference Range Interpretation Comments MCV (test code = MCV) 78.9 80.0-98.0 [facility] CenterWdwwphpQMUYRGVWBA3163-24-03 21:13:00 Test Item Value Reference Range Interpretation Comments MCH (test code = MCH) 25.7 pg 27.0-31.0 [facility] CenterDkoniwkHPBQUBIEYA2665-08-74 21:13:00 Test Item Value Reference Range Interpretation Comments MCHC (test code = MCHC) 32.6 32.0-36.0 [facility] CenterStwhjgwPGWQRVKSMK5741-51-00 21:13:00 Test Item Value Reference Range Interpretation Comments RDW (test code = RDW) 15.5 11.5-14.5 [facility] CenterFotufbfXODDICLRZF8339-80-85 21:13:00 Test Item Value Reference Range Interpretation Comments Platelet (test code = Platelet) 243 133-450 [facility] CenterVjqdzwcEMLYXPYDHT7801-41-16 21:13:00 Test Item Value Reference Range Interpretation Comments MPV (test code = MPV) 9.4 7.4-10.4 [place] 440271-05-24 21:13:00 Test Item Value Reference Range Interpretation Comments Segs (test code = Segs) 56.1 45.0-75.0 [place] [address]-05-24 21:13:00 Test Item Value Reference Range Interpretation Comments Lymphocytes (test code = Lymphocytes) 32.2 20.0-40.0 [place] 440271-05-24 21:13:00 Test Item Value Reference Range Interpretation Comments Monocytes (test code = Monocytes) 9.1 2.0-12.0 [place] 440271-05-24 21:13:00 Test Item Value Reference Range Interpretation Comments Eosinophils (test code = 2.2 See_Comment [A utomated message] The Eosinophils) system which ge nerated this result tra nsmitted reference range : <=4.0. The reference r kat was not used to int erpret this result as normal/abnormal . [place] 440271-05-24 21:13:00 Test Item Value Reference Range Interpretation Comments Basophils (test code = 0.4 See_Comment [Aut omated message] The Basophils) system which ge nerated this result tra nsmitted reference range : <=1.0. The reference r kat was not used to int erpret this result as normal/abnormal . [place] 440271-05-24 21:13:00 Test Item Value Reference Range Interpretation Comments Neutrophils # (test code = Neutrophils 4.4 1.5-8.1 #) [place] 440271-05-24 21:13:00 Test Item Value Reference Range Interpretation Comments Lymphocytes # (test code = Lymphocytes 2.5 1.0-5.5 #) [place] 440271-05-24 21:13:00 Test Item Value Reference Range Interpretation Comments Monocytes # (test code 0.7 See_Comment [Aut omated message] The = Monocytes #) system which generated this result tra nsmitted reference range : <=0.8. The reference r kat was not used to int erpret this result as normal/abnormal . [place] 440271-05-24 21:13:00 Test Item Value Reference Range Interpretation Comments Eosinophils # (test code 0.2 See_Comment [A utomated message] The = Eosinophils #) system [employer] generated this result tra nsmitted reference range : <=0.5. The reference r kat was not used to int erpret this result as normal/abnormal . [facility] CenterDuayqiyKUOEXAJQSY7917-56-31 21:13:00 Test Item Value Reference Range Interpretation Comments Microcyte (test code = 1+ *ABN*(01/20/21 Microcyte) 4:13 PM) [place] 656901-05-24 21:13:00 Test Item Value Reference Range Interpretation Comments Glucose Lvl (test code = Glucose Lvl) 89 70-99 [place] 656901-05-24 21:13:00 Test Item Value Reference Range Interpretation Comments BUN (test code = BUN) 8 7-22 [place] 656901-05-24 21:13:00 Test Item Value Reference Range Interpretation Comments Creatinine Lvl (test code = Creatinine 0.55 0.50-1.40 Lvl) [place] 656901-05-24 21:13:00 Test Item Value Reference Range Interpretation Comments Sodium Lvl (test code = Sodium Lvl) 140 135-145 [place] 656901-05-24 21:13:00 Test Item Value Reference Range Interpretation Comments Potassium Lvl (test code = Potassium 3.5 3.5-5.1 Lvl) [facility]2021-05-24 21:13:00 Test Item Value Reference Range Interpretation Comments Chloride Lvl (test code = Chloride Lvl) 109 95-109 [place] 656901-05-24 21:13:00 Test Item Value Reference Range Interpretation Comments CO2 (test code = CO2) 27 24-32 [place] 656901-05-24 21:13:00 Test Item Value Reference Range Interpretation Comments Calcium Lvl (test code = Calcium Lvl) 9.0 8.5-10.5 [place] 656901-05-24 21:13:00 Test Item Value Reference Range Interpretation Comments AGAP (test code = AGAP) 7.5 10.0-20.0 [place] 656901-05-24 21:13:00 Test Item Value Reference Range Interpretation Comments eGFR (test code = eGFR) 126 [place] 656901-05-24 21:13:00 Test Item Value Reference Range Interpretation Comments Lactic Acid Lvl (test code = Lactic 0.6 0.5-2.2 Acid Lvl) [place] 68251021-05-24 21:13:00 Test Item Value Reference Range Interpretation Comments hCG Tot (test code = hCG Tot) no gt [facility] CenterCsnzxwtTRAVQWGGFL9398-05-52 21:13:00 Test Item Value Reference Range Interpretation Comments WBC X 10x3 (test code = WBC X 10x3) 7.9 3.7-10.4 [place] 440271-05-24 21:13:00 Test Item Value Reference Range Interpretation Comments RBC X 10x6 (test code = RBC X 10x6) 4.80 4.20-5.40 [place] 440271-05-24 21:13:00 Test Item Value Reference Range Interpretation Comments Hgb (test code = Hgb) 12.4 12.0-16.0 [place] 440271-05-24 21:13:00 Test Item Value Reference Range Interpretation Comments Hct (test code = Hct) 37.9 36.0-48.0 [place] 440271-05-24 21:13:00 Test Item Value Reference Range Interpretation Comments MCV (test code = MCV) 78.9 80.0-98.0 [place] 440271-05-24 21:13:00 Test Item Value Reference Range Interpretation Comments MCH (test code = MCH) 25.7 pg 27.0-31.0 [place] 440271-05-24 21:13:00 Test Item Value Reference Range Interpretation Comments MCHC (test code = MCHC) 32.6 32.0-36.0 [place] 440271-05-24 21:13:00 Test Item Value Reference Range Interpretation Comments RDW (test code = RDW) 15.5 11.5-14.5 [place] 440271-05-24 21:13:00 Test Item Value Reference Range Interpretation Comments Platelet (test code = Platelet) 243 133-450 [facility] CenterMtwukesJNTKTFUUSZ8718-76-32 21:13:00 Test Item Value Reference Range Interpretation Comments MPV (test code = MPV) 9.4 7.4-10.4 [place] 440271-05-24 21:13:00 Test Item Value Reference Range Interpretation Comments Segs (test code = Segs) 56.1 45.0-75.0 [place] 440271-05-24 21:13:00 Test Item Value Reference Range Interpretation Comments Lymphocytes (test code = Lymphocytes) 32.2 20.0-40.0 [place] 440271-05-24 21:13:00 Test Item Value Reference Range Interpretation Comments Monocytes (test code = Monocytes) 9.1 2.0-12.0 [place] 440271-05-24 21:13:00 Test Item Value Reference Range Interpretation Comments Eosinophils (test code = 2.2 See_Comment [A utomated message] The Eosinophils) system which ge nerated this result tra nsmitted reference range : <=4.0. The reference r kat was not used to int erpret this result as normal/abnormal . [place] 440271-05-24 21:13:00 Test Item Value Reference Range Interpretation Comments Basophils (test code = 0.4 See_Comment [Aut omated message] The Basophils) system which ge nerated this result tra nsmitted reference range : <=1.0. The reference r kat was not used to int erpret this result as normal/abnormal . [place] 440271-05-24 21:13:00 Test Item Value Reference Range Interpretation Comments Neutrophils # (test code = Neutrophils 4.4 1.5-8.1 #) [place] 440271-05-24 21:13:00 Test Item Value Reference Range Interpretation Comments Lymphocytes # (test code = Lymphocytes 2.5 1.0-5.5 #) [place] 440271-05-24 21:13:00 Test Item Value Reference Range Interpretation Comments Monocytes # (test code 0.7 See_Comment [Aut omated message] The = Monocytes #) system which generated this result tra nsmitted reference range : <=0.8. The reference r kat was not used to int erpret this result as normal/abnormal . [place] [address]-05-24 21:13:00 Test Item Value Reference Range Interpretation Comments Eosinophils # (test code 0.2 See_Comment [A utomated message] The = Eosinophils #) system wh h generated this result tra nsmitted reference range : <=0.5. The reference r kat was not used to int erpret this result as normal/abnormal . [facility]EllzcvdWVPHFODRTD1462-[facility]-76 21:13:00 Test Item Value Reference Range Interpretation Comments Microcyte (test code = 1+ *ABN*(01/20/21 Microcyte) 4:13 PM) [place] 656901-05-24 21:13:00 Test Item Value Reference Range Interpretation Comments Glucose Lvl (test code = Glucose Lvl) 89 70-99 [place] 656901-05-24 21:13:00 Test Item Value Reference Range Interpretation Comments BUN (test code = BUN) 8 7-22 [place] 656901-05-24 21:13:00 Test Item Value Reference Range Interpretation Comments Creatinine Lvl (test code = Creatinine 0.55 0.50-1.40 Lvl) [place] 656901-05-24 21:13:00 Test Item Value Reference Range Interpretation Comments Sodium Lvl (test code = Sodium Lvl) 140 135-145 [place] 656901-05-24 21:13:00 Test Item Value Reference Range Interpretation Comments Potassium Lvl (test code = Potassium 3.5 3.5-5.1 Lvl) [place] 656901-05-24 21:13:00 Test Item Value Reference Range Interpretation Comments Chloride Lvl (test code = Chloride Lvl) 109 95-109 [place] 656901-05-24 21:13:00 Test Item Value Reference Range Interpretation Comments CO2 (test code = CO2) 27 24-32 [place] 656901-05-24 21:13:00 Test Item Value Reference Range Interpretation Comments Calcium Lvl (test code = Calcium Lvl) 9.0 8.5-10.5 [place] 656901-05-24 21:13:00 Test Item Value Reference Range Interpretation Comments AGAP (test code = AGAP) 7.5 10.0-20.0 [place] 656901-05-24 21:13:00 Test Item Value Reference Range Interpretation Comments eGFR (test code = eGFR) 126 [place] 656901-05-24 21:13:00 Test Item Value Reference Range Interpretation Comments Lactic Acid Lvl (test code = Lactic 0.6 0.5-2.2 Acid Lvl) [facility] 21:13:00 Test Item Value Reference Range Interpretation Comments hCG Tot (test code = hCG Tot) no gt [facility] CenterHmnlrabTPZGMSNFJC3467-57-14 21:13:00 Test Item Value Reference Range Interpretation Comments WBC X 10x3 (test code = WBC X 10x3) 7.9 3.7-10.4 [facility] CenterKvadjylUDKBGVJIRK0377-10-33 21:13:00 Test Item Value Reference Range Interpretation Comments RBC X 10x6 (test code = RBC X 10x6) 4.80 4.20-5.40 [facility] CenterKkhvsmePPNXCSVIVF7162-30-85 21:13:00 Test Item Value Reference Range Interpretation Comments Hgb (test code = Hgb) 12.4 12.0-16.0 [facility] CenterBgeqflwNRBNREJTIK7358-29-77 21:13:00 Test Item Value Reference Range Interpretation Comments Hct (test code = Hct) 37.9 36.0-48.0 [facility] CenterVlzberkITQQCNZKDT8158-75-82 21:13:00 Test Item Value Reference Range Interpretation Comments MCV (test code = MCV) 78.9 80.0-98.0 [facility] CenterEzqjmrbWNXAHYZVWM0303-61-51 21:13:00 Test Item Value Reference Range Interpretation Comments MCH (test code = MCH) 25.7 pg 27.0-31.0 [facility] CenterRxuewzbABXAKPDVKI2489-37-74 21:13:00 Test Item Value Reference Range Interpretation Comments MCHC (test code = MCHC) 32.6 32.0-36.0 [facility] CenterWyfgklaMPUHALGDUF7320-65-95 21:13:00 Test Item Value Reference Range Interpretation Comments RDW (test code = RDW) 15.5 11.5-14.5 [facility] CenterUzbtecyNWBJFBIGOR5308-93-18 21:13:00 Test Item Value Reference Range Interpretation Comments Platelet (test code = Platelet) 243 133-450 [facility] CenterOgznxsxJVMPYCRVCV7649-27-75 21:13:00 Test Item Value Reference Range Interpretation Comments MPV (test code = MPV) 9.4 7.4-10.4 [facility] CenterFomczzsIBPLELWSGB3612-68-31 21:13:00 Test Item Value Reference Range Interpretation Comments Segs (test code = Segs) 56.1 45.0-75.0 [place] 440271-05-24 21:13:00 Test Item Value Reference Range Interpretation Comments Lymphocytes (test code = Lymphocytes) 32.2 20.0-40.0 [place] 440271-05-24 21:13:00 Test Item Value Reference Range Interpretation Comments Monocytes (test code = Monocytes) 9.1 2.0-12.0 [place] 440271-05-24 21:13:00 Test Item Value Reference Range Interpretation Comments Eosinophils (test code = 2.2 See_Comment [A utomated message] The Eosinophils) system which ge nerated this result tra nsmitted reference range : <=4.0. The reference r kat was not used to int erpret this result as normal/abnormal . [place] [address]-05-24 21:13:00 Test Item Value Reference Range Interpretation Comments Basophils (test code = 0.4 See_Comment [Aut omated message] The Basophils) system which ge nerated this result tra nsmitted reference range : <=1.0. The reference r kat was not used to int erpret this result as normal/abnormal . [facility] CenterWuitlmcLQRVOURZEI7400-96-71 21:13:00 Test Item Value Reference Range Interpretation Comments Neutrophils # (test code = Neutrophils 4.4 1.5-8.1 #) [place] [id number] 21:13:00 Test Item Value Reference Range Interpretation Comments Lymphocytes # (test code = Lymphocytes 2.5 1.0-5.5 #) [place] 440271-05-24 21:13:00 Test Item Value Reference Range Interpretation Comments Monocytes # (test code 0.7 See_Comment [Aut omated message] The = Monocytes #) system which generated this result tra nsmitted reference range : <=0.8. The reference r kat was not used to int erpret this result as normal/abnormal . [place] 440271-05-24 21:13:00 Test Item Value Reference Range Interpretation Comments Eosinophils # (test code 0.2 See_Comment [A utomated message] The = Eosinophils #) system whic h generated this result tra nsmitted reference range : <=0.5. The reference r kat was not used to int erpret this result as normal/abnormal . [place] 440271-05-24 21:13:00 Test Item Value Reference Range Interpretation Comments Microcyte (test code = 1+ *ABN*(01/20/21 Microcyte) 4:13 PM) [facility]2016-01-21 13:03:00 Test Item Value Reference Range Interpretation Comments Magnesium Lvl (test code = Magnesium 1.9 1.8-2.4 Lvl) [facility]2016-01-21 13:03:00 Test Item Value Reference Range Interpretation Comments eGFR (test code = eGFR) 127 [facility]2016-01-21 13:03:00 Test Item Value Reference Range Interpretation Comments Creatinine Lvl (test code = Creatinine 0.60 0.50-1.40 Lvl) [facility]2016-01-21 13:03:00 Test Item Value Reference Range Interpretation Comments Glucose Lvl (test code = Glucose Lvl) 82 70-99 [facility]2016-01-21 13:03:00 Test Item Value Reference Range Interpretation Comments BUN (test code = BUN) 7 7-22 [facility]2016-01-21 13:03:00 Test Item Value Reference Range Interpretation Comments Potassium Lvl (test code = Potassium 4.1 3.5-5.1 Lvl) [facility]2016-01-21 13:03:00 Test Item Value Reference Range Interpretation Comments Sodium Lvl (test code = Sodium Lvl) 141 135-145 [facility]2016-01-21 13:03:00 Test Item Value Reference Range Interpretation Comments Chloride Lvl (test code = Chloride Lvl) 108 95-109 [facility]2016-01-21 13:03:00 Test Item Value Reference Range Interpretation Comments CO2 (test code = CO2) 20 24-32 [facility]2016-01-21 13:03:00 Test Item Value Reference Range Interpretation Comments Calcium Lvl (test code = Calcium Lvl) 8.9 8.5-10.5 [facility]2016-01-21 13:03:00 Test Item Value Reference Range Interpretation Comments AGAP (test code = AGAP) 17.1 10.0-20.0 [facility] CenterFajevaoQVTSDYBNDY9449-21-39 13:03:00 Test Item Value Reference Range Interpretation Comments Lymphocytes # (test code = Lymphocytes 2.3 1.0-5.5 #) [facility] CenterKmkkvsxBPTWGXMVDH6746-53-20 13:03:00 Test Item Value Reference Range Interpretation Comments Basophils (test code = 1.0 See_Comment [Aut omated message] The Basophils) system which ge nerated this result tra nsmitted reference range : <=1.0. The reference r kat was not used to int erpret this result as normal/abnormal . [facility] CenterLukghlrFSZKNYNPJD1577-65-53 13:03:00 Test Item Value Reference Range Interpretation Comments Segs-Bands # (test code = Segs-Bands #) 3.3 1.5-8.1 [facility] CenterXcuzwjkUMAYQLTJGD6852-14-58 13:03:00 Test Item Value Reference Range Interpretation Comments Eosinophils (test code = 2.5 See_Comment [A utomated message] The Eosinophils) system which ge nerated this result tra nsmitted reference range : <=4.0. The reference r kat was not used to int erpret this result as normal/abnormal . [facility] CenterTvcmathSXUJGIWRID2997-62-93 13:03:00 Test Item Value Reference Range Interpretation Comments Eosinophils # (test code 0.2 See_Comment [A utomated message] The = Eosinophils #) system whic h generated this result tra nsmitted reference range : <=0.5. The reference r kat was not used to int erpret this result as normal/abnormal . [facility] CenterEpjtdjnXZIORYTMGR1712-17-22 13:03:00 Test Item Value Reference Range Interpretation Comments Monocytes # (test code 0.7 See_Comment [Aut omated message] The = Monocytes #) system which generated this result tra nsmitted reference range : <=0.8. The reference r kat was not used to int erpret this result as normal/abnormal . [facility] CenterOkevpblNXEFIKBNWK0270-45-70 13:03:00 Test Item Value Reference Range Interpretation Comments Microcyte (test code = 1+ *ABN*(09/19/15 Microcyte) 7:03 AM) [facility] CenterKvhnswmWTBULYZZSE0397-98-91 13:03:00 Test Item Value Reference Range Interpretation Comments Basophils # (test code 0.1 See_Comment [Aut omated message] The = Basophils #) system which generated this result tra nsmitted reference range : <=0.2. The reference r kat was not used to int erpret this result as normal/abnormal . [facility] CenterSfuqfmnVLPLIEOKYN7199-04-83 13:03:00 Test Item Value Reference Range Interpretation Comments Monocytes (test code = Monocytes) 10.4 2.0-12.0 [facility] CenterNoaojvnAGKGGRUBNC7907-82-82 13:03:00 Test Item Value Reference Range Interpretation Comments Lymphocytes (test code = Lymphocytes) 35.3 20.0-40.0 [facility] CenterPvgmlycQKVRNNMVEN9193-13-67 13:03:00 Test Item Value Reference Range Interpretation Comments Segs (test code = Segs) 50.8 45.0-75.0 [facility] CenterMdtcpdaITNHOLGOQN4881-56-25 13:03:00 Test Item Value Reference Range Interpretation Comments MCHC (test code = MCHC) 30.5 32.0-36.0 [facility] CenterBahqynwMFSAYPIVIX8306-54-05 13:03:00 Test Item Value Reference Range Interpretation Comments Platelet (test code = Platelet) 175 133-450 [facility] CenterSluqegeRZIYWMEQHS2945-03-17 13:03:00 Test Item Value Reference Range Interpretation Comments RDW (test code = RDW) 17.1 11.5-14.5 [facility] CenterYbqgemyDBNVZVOTYV6626-07-86 13:03:00 Test Item Value Reference Range Interpretation Comments MCV (test code = MCV) 78.4 80.0-98.0 [facility] CenterRulchskZTJRNBMNDG4978-76-06 13:03:00 Test Item Value Reference Range Interpretation Comments MCH (test code = MCH) 24.0 pg 27.0-31.0 [facility] CenterUlavzxuTTDUOAOEIA0356-27-53 13:03:00 Test Item Value Reference Range Interpretation Comments RBC (test code = RBC) 5.15 4.20-5.40 [facility] CenterWjcxcqkRSURLEVRFG7325-68-75 13:03:00 Test Item Value Reference Range Interpretation Comments Hct (test code = Hct) 40.4 36.0-48.0 [facility] CenterHsujcljEPHGVGSGKZ4361-97-38 13:03:00 Test Item Value Reference Range Interpretation Comments WBC (test code = WBC) 6.5 3.7-10.4 [facility] CenterDlvfugkEIISIOJLHN7726-58-27 13:03:00 Test Item Value Reference Range Interpretation Comments MPV (test code = MPV) 10.2 7.4-10.4 [facility] CenterNjxldxxPDDGWJIGIZ4408-65-48 13:03:00 Test Item Value Reference Range Interpretation Comments Hgb (test code = Hgb) 12.3 12.0-16.0 [facility]2016-01-21 13:03:00 Test Item Value Reference Range Interpretation Comments Magnesium Lvl (test code = Magnesium 1.9 1.8-2.4 Lvl) [facility]2016-01-21 13:03:00 Test Item Value Reference Range Interpretation Comments eGFR (test code = eGFR) 127 [facility]2016-01-21 13:03:00 Test Item Value Reference Range Interpretation Comments Creatinine Lvl (test code = Creatinine 0.60 0.50-1.40 Lvl) [facility]2016-01-21 13:03:00 Test Item Value Reference Range Interpretation Comments Glucose Lvl (test code = Glucose Lvl) 82 70-99 [facility]2016-01-21 13:03:00 Test Item Value Reference Range Interpretation Comments BUN (test code = BUN) 7 7-22 [facility]2016-01-21 13:03:00 Test Item Value Reference Range Interpretation Comments Potassium Lvl (test code = Potassium 4.1 3.5-5.1 Lvl) [facility]2016-01-21 13:03:00 Test Item Value Reference Range Interpretation Comments Sodium Lvl (test code = Sodium Lvl) 141 135-145 [facility]2016-01-21 13:03:00 Test Item Value Reference Range Interpretation Comments Chloride Lvl (test code = Chloride Lvl) 108 95-109 [facility]2016-01-21 13:03:00 Test Item Value Reference Range Interpretation Comments CO2 (test code = CO2) 20 24-32 [facility]2016-01-21 13:03:00 Test Item Value Reference Range Interpretation Comments Calcium Lvl (test code = Calcium Lvl) 8.9 8.5-10.5 [facility]2016-01-21 13:03:00 Test Item Value Reference Range Interpretation Comments AGAP (test code = AGAP) 17.1 10.0-20.0 [facility] CenterYxnwgjiVTGBFUIJBR0402-04-32 13:03:00 Test Item Value Reference Range Interpretation Comments Lymphocytes # (test code = Lymphocytes 2.3 1.0-5.5 #) [facility] CenterFwzjtxsQCMJUZRKXV9358-41-33 13:03:00 Test Item Value Reference Range Interpretation Comments Basophils (test code = 1.0 See_Comment [Aut omated message] The Basophils) system which ge nerated this result tra nsmitted reference range : <=1.0. The reference r kat was not used to int erpret this result as normal/abnormal . [facility] CenterGarnbnhBFMRCESMDJ6408-88-15 13:03:00 Test Item Value Reference Range Interpretation Comments Segs-Bands # (test code = Segs-Bands #) 3.3 1.5-8.1 [facility] CenterTxomuifTXUHEUKHTF2234-69-71 13:03:00 Test Item Value Reference Range Interpretation Comments Eosinophils (test code = 2.5 See_Comment [A utomated message] The Eosinophils) system which ge nerated this result tra nsmitted reference range : <=4.0. The reference r kat was not used to int erpret this result as normal/abnormal . [facility] CenterDtoygirSCNMIWAJEC5438-75-40 13:03:00 Test Item Value Reference Range Interpretation Comments Eosinophils # (test code 0.2 See_Comment [A utomated message] The = Eosinophils #) system whic h generated this result tra nsmitted reference range : <=0.5. The reference r kat was not used to int erpret this result as normal/abnormal . [facility] CenterSxammmaKWPXJANIDS2479-65-52 13:03:00 Test Item Value Reference Range Interpretation Comments Monocytes # (test code 0.7 See_Comment [Aut omated message] The = Monocytes #) system which generated this result tra nsmitted reference range : <=0.8. The reference r kat was not used to int erpret this result as normal/abnormal . [facility] CenterOniguwcABGBIKBASH0696-16-54 13:03:00 Test Item Value Reference Range Interpretation Comments Microcyte (test code = 1+ *ABN*(09/19/15 Microcyte) 7:03 AM) [facility] CenterWcgwxqoGTHFJDGDWA9967-67-96 13:03:00 Test Item Value Reference Range Interpretation Comments Basophils # (test code 0.1 See_Comment [Aut omated message] The = Basophils #) system which generated this result tra nsmitted reference range : <=0.2. The reference r kat was not used to int erpret this result as normal/abnormal . [facility] CenterIglnzmbZKLBLCGJLT1117-64-66 13:03:00 Test Item Value Reference Range Interpretation Comments Monocytes (test code = Monocytes) 10.4 2.0-12.0 [facility] CenterAsbtwhgEWCGGMISBH6927-89-60 13:03:00 Test Item Value Reference Range Interpretation Comments Lymphocytes (test code = Lymphocytes) 35.3 20.0-40.0 [facility] CenterWztpgkmLEXAACWCHO3139-34-30 13:03:00 Test Item Value Reference Range Interpretation Comments Segs (test code = Segs) 50.8 45.0-75.0 [facility] CenterDdkgkoxRVMQNIRFIV7351-07-79 13:03:00 Test Item Value Reference Range Interpretation Comments MCHC (test code = MCHC) 30.5 32.0-36.0 [facility] CenterGgbgrxdKXNNTHPGEJ7702-53-30 13:03:00 Test Item Value Reference Range Interpretation Comments Platelet (test code = Platelet) 175 133-450 [facility] CenterZieshdtPOHWPUFBXS5169-28-03 13:03:00 Test Item Value Reference Range Interpretation Comments RDW (test code = RDW) 17.1 11.5-14.5 [facility] CenterEnremheDKVTCFMLIL0928-28-26 13:03:00 Test Item Value Reference Range Interpretation Comments MCV (test code = MCV) 78.4 80.0-98.0 [facility] CenterZzkisvoWZOECKFQTY7554-04-48 13:03:00 Test Item Value Reference Range Interpretation Comments MCH (test code = MCH) 24.0 pg 27.0-31.0 [facility] CenterTcybrseNALMWHVDEB8477-71-96 13:03:00 Test Item Value Reference Range Interpretation Comments RBC (test code = RBC) 5.15 4.20-5.40 [facility] CenterVnbrneoFIHCEBDHGZ7162-81-01 13:03:00 Test Item Value Reference Range Interpretation Comments Hct (test code = Hct) 40.4 36.0-48.0 [facility] CenterOnateldNNZDOPCRIL3112-05-21 13:03:00 Test Item Value Reference Range Interpretation Comments WBC (test code = WBC) 6.5 3.7-10.4 [facility] CenterXqqqflbONAAUWTUZB4383-10-29 13:03:00 Test Item Value Reference Range Interpretation Comments MPV (test code = MPV) 10.2 7.4-10.4 [facility] CenterWwkbkbmQEVEDDXFVW3532-66-70 13:03:00 Test Item Value Reference Range Interpretation Comments Hgb (test code = Hgb) 12.3 12.0-16.0 [facility]2016-01-21 13:03:00 Test Item Value Reference Range Interpretation Comments Magnesium Lvl (test code = Magnesium 1.9 1.8-2.4 Lvl) [facility]2016-01-21 13:03:00 Test Item Value Reference Range Interpretation Comments eGFR (test code = eGFR) 127 [facility]2016-01-21 13:03:00 Test Item Value Reference Range Interpretation Comments Creatinine Lvl (test code = Creatinine 0.60 0.50-1.40 Lvl) [facility]2016-01-21 13:03:00 Test Item Value Reference Range Interpretation Comments Glucose Lvl (test code = Glucose Lvl) 82 70-99 [facility]2016-01-21 13:03:00 Test Item Value Reference Range Interpretation Comments BUN (test code = BUN) 7 7-22 [facility]2016-01-21 13:03:00 Test Item Value Reference Range Interpretation Comments Potassium Lvl (test code = Potassium 4.1 3.5-5.1 Lvl) [facility]2016-01-21 13:03:00 Test Item Value Reference Range Interpretation Comments Sodium Lvl (test code = Sodium Lvl) 141 135-145 [facility]2016-01-21 13:03:00 Test Item Value Reference Range Interpretation Comments Chloride Lvl (test code = Chloride Lvl) 108 95-109 [facility]2016-01-21 13:03:00 Test Item Value Reference Range Interpretation Comments CO2 (test code = CO2) 20 24-32 [facility]2016-01-21 13:03:00 Test Item Value Reference Range Interpretation Comments Calcium Lvl (test code = Calcium Lvl) 8.9 8.5-10.5 [facility]2016-01-21 13:03:00 Test Item Value Reference Range Interpretation Comments AGAP (test code = AGAP) 17.1 10.0-20.0 [facility] CenterDhaarafRTVOYBWACZ2728-31-69 13:03:00 Test Item Value Reference Range Interpretation Comments Lymphocytes # (test code = Lymphocytes 2.3 1.0-5.5 #) [facility] CenterIouljpkVWZLRPUBKN7920-78-27 13:03:00 Test Item Value Reference Range Interpretation Comments Basophils (test code = 1.0 See_Comment [Aut omated message] The Basophils) system which ge nerated this result tra nsmitted reference range : <=1.0. The reference r kat was not used to int erpret this result as normal/abnormal . [facility] CenterOnfhvemZWZOCBFBKM8868-06-52 13:03:00 Test Item Value Reference Range Interpretation Comments Segs-Bands # (test code = Segs-Bands #) 3.3 1.5-8.1 [facility] CenterTgpsultTVRBLFKZLO7939-12-92 13:03:00 Test Item Value Reference Range Interpretation Comments Eosinophils (test code = 2.5 See_Comment [A utomated message] The Eosinophils) system which ge nerated this result tra nsmitted reference range : <=4.0. The reference r kat was not used to int erpret this result as normal/abnormal . [facility] CenterGxdsdgdXLBVREJLAH7828-15-39 13:03:00 Test Item Value Reference Range Interpretation Comments Eosinophils # (test code 0.2 See_Comment [A utomated message] The = Eosinophils #) system whic h generated this result tra nsmitted reference range : <=0.5. The reference r kat was not used to int erpret this result as normal/abnormal . [facility] CenterVlzruneJMAMFDLUAO3972-92-27 13:03:00 Test Item Value Reference Range Interpretation Comments Monocytes # (test code 0.7 See_Comment [Aut omated message] The = Monocytes #) system which generated this result tra nsmitted reference range : <=0.8. The reference r kat was not used to int erpret this result as normal/abnormal . [facility] CenterUrskjpiETYEIONPRJ9319-47-55 13:03:00 Test Item Value Reference Range Interpretation Comments Microcyte (test code = 1+ *ABN*(09/19/15 Microcyte) 7:03 AM) [facility] CenterUpcyrdbKLQWAHGADB3795-67-31 13:03:00 Test Item Value Reference Range Interpretation Comments Basophils # (test code 0.1 See_Comment [Aut omated message] The = Basophils #) system which generated this result tra nsmitted reference range : <=0.2. The reference r kat was not used to int erpret this result as normal/abnormal . [facility] CenterGutyrumFJWTFCKDUT2112-07-74 13:03:00 Test Item Value Reference Range Interpretation Comments Monocytes (test code = Monocytes) 10.4 2.0-12.0 [place] 845916-01-21 13:03:00 Test Item Value Reference Range Interpretation Comments Lymphocytes (test code = Lymphocytes) 35.3 20.0-40.0 [facility] CenterMevnihzJRRNOARYIB2567-90-15 13:03:00 Test Item Value Reference Range Interpretation Comments Segs (test code = Segs) 50.8 45.0-75.0 [facility] CenterOxkoosqAHKZDNQWMV1196-81-83 13:03:00 Test Item Value Reference Range Interpretation Comments MCHC (test code = MCHC) 30.5 32.0-36.0 [place] 845916-01-21 13:03:00 Test Item Value Reference Range Interpretation Comments Platelet (test code = Platelet) 175 133-450 [facility] CenterHjbtpxlQUCJBWZURB5126-34-20 13:03:00 Test Item Value Reference Range Interpretation Comments RDW (test code = RDW) 17.1 11.5-14.5 [facility] CenterGxmnjyrINFOKBPEQP2567-42-69 13:03:00 Test Item Value Reference Range Interpretation Comments MCV (test code = MCV) 78.4 80.0-98.0 [facility] CenterSypaqyrICZHVJJWZC6531-66-08 13:03:00 Test Item Value Reference Range Interpretation Comments MCH (test code = MCH) 24.0 pg 27.0-31.0 [facility] CenterLvhufzkUGMGPKBRFG0470-71-81 13:03:00 Test Item Value Reference Range Interpretation Comments RBC (test code = RBC) 5.15 4.20-5.40 [facility] CenterIprgeflNSLYGOBMKX1661-17-97 13:03:00 Test Item Value Reference Range Interpretation Comments Hct (test code = Hct) 40.4 36.0-48.0 [facility] CenterEpfkfztRNLFXTAJWV7743-36-71 13:03:00 Test Item Value Reference Range Interpretation Comments WBC (test code = WBC) 6.5 3.7-10.4 [facility] CenterMjqtkcsSNFGKOPFKH3669-84-69 13:03:00 Test Item Value Reference Range Interpretation Comments MPV (test code = MPV) 10.2 7.4-10.4 [facility] CenterXoxodadNSTRPVMGPJ9362-27-55 13:03:00 Test Item Value Reference Range Interpretation Comments Hgb (test code = Hgb) 12.3 12.0-16.0 [facility]2016-01-21 13:03:00 Test Item Value Reference Range Interpretation Comments Magnesium Lvl (test code = Magnesium 1.9 1.8-2.4 Lvl) [facility]2016-01-21 13:03:00 Test Item Value Reference Range Interpretation Comments eGFR (test code = eGFR) 127 [facility]2016-01-21 13:03:00 Test Item Value Reference Range Interpretation Comments Creatinine Lvl (test code = Creatinine 0.60 0.50-1.40 Lvl) [facility]2016-01-21 13:03:00 Test Item Value Reference Range Interpretation Comments Glucose Lvl (test code = Glucose Lvl) 82 70-99 [facility]2016-01-21 13:03:00 Test Item Value Reference Range Interpretation Comments BUN (test code = BUN) 7 7-22 [facility]2016-01-21 13:03:00 Test Item Value Reference Range Interpretation Comments Potassium Lvl (test code = Potassium 4.1 3.5-5.1 Lvl) [facility]2016-01-21 13:03:00 Test Item Value Reference Range Interpretation Comments Sodium Lvl (test code = Sodium Lvl) 141 135-145 [facility]2016-01-21 13:03:00 Test Item Value Reference Range Interpretation Comments Chloride Lvl (test code = Chloride Lvl) 108 95-109 [facility]2016-01-21 13:03:00 Test Item Value Reference Range Interpretation Comments CO2 (test code = CO2) 20 24-32 [facility]2016-01-21 13:03:00 Test Item Value Reference Range Interpretation Comments Calcium Lvl (test code = Calcium Lvl) 8.9 8.5-10.5 [facility]2016-01-21 13:03:00 Test Item Value Reference Range Interpretation Comments AGAP (test code = AGAP) 17.1 10.0-20.0 [facility] CenterIcneplsOAQBWMJZXV1923-55-78 13:03:00 Test Item Value Reference Range Interpretation Comments Lymphocytes # (test code = Lymphocytes 2.3 1.0-5.5 #) [facility] CenterWlbbtbbLZHOVHMEJV7678-63-73 13:03:00 Test Item Value Reference Range Interpretation Comments Basophils (test code = 1.0 See_Comment [Aut omated message] The Basophils) system which ge nerated this result tra nsmitted reference range : <=1.0. The reference r kat was not used to int erpret this result as normal/abnormal . [facility] CenterIyxvnycIBAMQNIFTL4731-55-31 13:03:00 Test Item Value Reference Range Interpretation Comments Segs-Bands # (test code = Segs-Bands #) 3.3 1.5-8.1 [facility] CenterOyodarxCFLQFPGTZC8329-22-23 13:03:00 Test Item Value Reference Range Interpretation Comments Eosinophils (test code = 2.5 See_Comment [A utomated message] The Eosinophils) system which ge nerated this result tra nsmitted reference range : <=4.0. The reference r kat was not used to int erpret this result as normal/abnormal . [facility] CenterPsmzyyhEDPFNBDELC9887-28-17 13:03:00 Test Item Value Reference Range Interpretation Comments Eosinophils # (test code 0.2 See_Comment [A utomated message] The = Eosinophils #) system whic h generated this result tra nsmitted reference range : <=0.5. The reference r kat was not used to int erpret this result as normal/abnormal . [facility] CenterCvythedJQZIQPBOSI3702-10-64 13:03:00 Test Item Value Reference Range Interpretation Comments Monocytes # (test code 0.7 See_Comment [Aut omated message] The = Monocytes #) system which generated this result tra nsmitted reference range : <=0.8. The reference r kat was not used to int erpret this result as normal/abnormal . [facility] CenterEkjwgsrBWTJAVRMNH6740-62-18 13:03:00 Test Item Value Reference Range Interpretation Comments Microcyte (test code = 1+ *ABN*(09/19/15 Microcyte) 7:03 AM) [facility] CenterQzinytnYXWOMLHELH1199-85-56 13:03:00 Test Item Value Reference Range Interpretation Comments Basophils # (test code 0.1 See_Comment [Aut omated message] The = Basophils #) system which generated this result tra nsmitted reference range : <=0.2. The reference r kat was not used to int erpret this result as normal/abnormal . [facility] CenterRxyutpaMCTCCTYSVN6134-20-04 13:03:00 Test Item Value Reference Range Interpretation Comments Monocytes (test code = Monocytes) 10.4 2.0-12.0 [facility] CenterXlmuyzvHIYHKSHLSU2805-32-77 13:03:00 Test Item Value Reference Range Interpretation Comments Lymphocytes (test code = Lymphocytes) 35.3 20.0-40.0 [facility] CenterYqcgzenMWCUJYQJYB3566-47-25 13:03:00 Test Item Value Reference Range Interpretation Comments Segs (test code = Segs) 50.8 45.0-75.0 [facility] CenterAknojkwUQLDXLMSMR3722-16-96 13:03:00 Test Item Value Reference Range Interpretation Comments MCHC (test code = MCHC) 30.5 32.0-36.0 [facility] CenterPgvjsbjRNOVOETQEQ8578-46-15 13:03:00 Test Item Value Reference Range Interpretation Comments Platelet (test code = Platelet) 175 133-450 [facility] CenterVpffdcbTLQCVQZSCT0706-43-82 13:03:00 Test Item Value Reference Range Interpretation Comments RDW (test code = RDW) 17.1 11.5-14.5 [facility] CenterUbtjtsuEXPCBHYIBY5107-52-24 13:03:00 Test Item Value Reference Range Interpretation Comments MCV (test code = MCV) 78.4 80.0-98.0 [facility]jkDZZ[facility]AAKVIJ9431[facility]47-06 13:03:00 Test Item Value Reference Range Interpretation Comments MCH (test code = MCH) 24.0 pg 27.0-31.0 [facility] HospitalApsrqkdTRUEGAVOUY2892-62-72 13:03:00 Test Item Value Reference Range Interpretation Comments RBC (test code = RBC) 5.15 4.20-5.40 [facility]CHEM PZGWZ7494-65-46 13:03:00 Test Item Value Reference Range Interpretation Comments Magnesium Lvl (test code = Magnesium 1.9 1.8-2.4 Lvl) [facility] CenterFesjeknNNTBZBONWJ0684-71-72 13:03:00 Test Item Value Reference Range Interpretation Comments Hct (test code = Hct) 40.4 36.0-48.0 [facility] CenterWvtwwimHQUPNLPQRJ9671-57-80 13:03:00 Test Item Value Reference Range Interpretation Comments WBC (test code = WBC) 6.5 3.7-10.4 [facility] CenterAxvsjacWDOCZYJKGH2453-37-88 13:03:00 Test Item Value Reference Range Interpretation Comments MPV (test code = MPV) 10.2 7.4-10.4 [facility] CenterTwpwuwtFIQQXDVILP2014-20-46 13:03:00 Test Item Value Reference Range Interpretation Comments Hgb (test code = Hgb) 12.3 12.0-16.0 [facility]2016-01-21 13:03:00 Test Item Value Reference Range Interpretation Comments eGFR (test code = eGFR) 127 [facility]2016-01-21 13:03:00 Test Item Value Reference Range Interpretation Comments Creatinine Lvl (test code = Creatinine 0.60 0.50-1.40 Lvl) [facility]2016-01-21 13:03:00 Test Item Value Reference Range Interpretation Comments Glucose Lvl (test code = Glucose Lvl) 82 70-99 [facility]2016-01-21 13:03:00 Test Item Value Reference Range Interpretation Comments BUN (test code = BUN) 7 7-22 [facility]2016-01-21 13:03:00 Test Item Value Reference Range Interpretation Comments Potassium Lvl (test code = Potassium 4.1 3.5-5.1 Lvl) [facility]2016-01-21 13:03:00 Test Item Value Reference Range Interpretation Comments Sodium Lvl (test code = Sodium Lvl) 141 135-145 [facility]2016-01-21 13:03:00 Test Item Value Reference Range Interpretation Comments Chloride Lvl (test code = Chloride Lvl) 108 95-109 [facility]2016-01-21 13:03:00 Test Item Value Reference Range Interpretation Comments CO2 (test code = CO2) 20 24-32 [facility]2016-01-21 13:03:00 Test Item Value Reference Range Interpretation Comments Calcium Lvl (test code = Calcium Lvl) 8.9 8.5-10.5 [facility]2016-01-21 13:03:00 Test Item Value Reference Range Interpretation Comments AGAP (test code = AGAP) 17.1 10.0-20.0 [facility] CenterGmttuakUQTAVJVURS9757-89-91 13:03:00 Test Item Value Reference Range Interpretation Comments Lymphocytes # (test code = Lymphocytes 2.3 1.0-5.5 #) [facility] CenterBgykiyeMXUAYOPDFQ7577-50-88 13:03:00 Test Item Value Reference Range Interpretation Comments Basophils (test code = 1.0 See_Comment [Aut omated message] The Basophils) system which ge nerated this result tra nsmitted reference range : <=1.0. The reference r kat was not used to int erpret this result as normal/abnormal . [facility] CenterHehzyrwDZLXRATVMS6792-19-31 13:03:00 Test Item Value Reference Range Interpretation Comments Segs-Bands # (test code = Segs-Bands #) 3.3 1.5-8.1 [facility] CenterKzqxsnkHDVNBVSLEZ6100-37-97 13:03:00 Test Item Value Reference Range Interpretation Comments Eosinophils (test code = 2.5 See_Comment [A utomated message] The Eosinophils) system which ge nerated this result tra nsmitted reference range : <=4.0. The reference r kat was not used to int erpret this result as normal/abnormal . [facility] CenterEzctwmkEOSQZNBQAO7766-62-06 13:03:00 Test Item Value Reference Range Interpretation Comments Eosinophils # (test code 0.2 See_Comment [A utomated message] The = Eosinophils #) system wh h generated this result tra nsmitted reference range : <=0.5. The reference r kat was not used to int erpret this result as normal/abnormal . [facility] CenterYhwtzwsUEJRVVCKRD6739-86-59 13:03:00 Test Item Value Reference Range Interpretation Comments Monocytes # (test code 0.7 See_Comment [Aut omated message] The = Monocytes #) system which generated this result tra nsmitted reference range : <=0.8. The reference r kat was not used to int erpret this result as normal/abnormal . [facility] CenterXdbstxjXVXJYZMEMD5649-62-91 13:03:00 Test Item Value Reference Range Interpretation Comments Microcyte (test code = 1+ *ABN*(09/19/15 Microcyte) 7:03 AM) [facility] CenterXnjmrbiXPTWPXZDOK7024-70-24 13:03:00 Test Item Value Reference Range Interpretation Comments Basophils # (test code 0.1 See_Comment [Aut omated message] The = Basophils #) system which generated this result tra nsmitted reference range : <=0.2. The reference r kat was not used to int erpret this result as normal/abnormal . [facility] CenterPysqiyjHMRZLAHWRZ6964-82-76 13:03:00 Test Item Value Reference Range Interpretation Comments Monocytes (test code = Monocytes) 10.4 2.0-12.0 [facility] CenterEuffysoFXUVCJNQKP5381-36-84 13:03:00 Test Item Value Reference Range Interpretation Comments Lymphocytes (test code = Lymphocytes) 35.3 20.0-40.0 [facility] CenterHidkmljXRJPOZQPYB6655-33-34 13:03:00 Test Item Value Reference Range Interpretation Comments Segs (test code = Segs) 50.8 45.0-75.0 [facility] CenterZpclkzlJNUHDMLZUJ2629-90-61 13:03:00 Test Item Value Reference Range Interpretation Comments MCHC (test code = MCHC) 30.5 32.0-36.0 [facility] CenterLrfcbgrCVVAXYAQFO0838-98-60 13:03:00 Test Item Value Reference Range Interpretation Comments Platelet (test code = Platelet) 175 133-450 [facility] CenterZnhvxwkWRCIVFYGRP4744-17-36 13:03:00 Test Item Value Reference Range Interpretation Comments RDW (test code = RDW) 17.1 11.5-14.5 [facility] CenterUozqmtiYUSAJDXRJM8506-84-72 13:03:00 Test Item Value Reference Range Interpretation Comments MCV (test code = MCV) 78.4 80.0-98.0 [facility] CenterTeostouHFKEYEXRBW6104-49-77 13:03:00 Test Item Value Reference Range Interpretation Comments MCH (test code = MCH) 24.0 pg 27.0-31.0 [facility] CenterJxegloaCUTTKURNQK7029-07-77 13:03:00 Test Item Value Reference Range Interpretation Comments RBC (test code = RBC) 5.15 4.20-5.40 [facility] CenterCnxnmqiQPZKBSXIVY2244-45-23 13:03:00 Test Item Value Reference Range Interpretation Comments Hct (test code = Hct) 40.4 36.0-48.0 [facility] CenterSmflldhBSGUQFTBUO8532-36-37 13:03:00 Test Item Value Reference Range Interpretation Comments WBC (test code = WBC) 6.5 3.7-10.4 [facility] CenterAatobywGINPZCNPIG9948-17-43 13:03:00 Test Item Value Reference Range Interpretation Comments MPV (test code = MPV) 10.2 7.4-10.4 [facility] CenterAxarmqyDFOBOZTPFO9327-10-47 13:03:00 Test Item Value Reference Range Interpretation Comments Hgb (test code = Hgb) 12.3 12.0-16.0 [facility]2016-01-21 13:03:00 Test Item Value Reference Range Interpretation Comments Magnesium Lvl (test code = Magnesium 1.9 1.8-2.4 Lvl) [facility]2016-01-21 13:03:00 Test Item Value Reference Range Interpretation Comments eGFR (test code = eGFR) 127 [facility]2016-01-21 13:03:00 Test Item Value Reference Range Interpretation Comments Creatinine Lvl (test code = Creatinine 0.60 0.50-1.40 Lvl) [facility]2016-01-21 13:03:00 Test Item Value Reference Range Interpretation Comments Glucose Lvl (test code = Glucose Lvl) 82 70-99 [facility]2016-01-21 13:03:00 Test Item Value Reference Range Interpretation Comments BUN (test code = BUN) 7 7-22 [facility]2016-01-21 13:03:00 Test Item Value Reference Range Interpretation Comments Potassium Lvl (test code = Potassium 4.1 3.5-5.1 Lvl) [facility]2016-01-21 13:03:00 Test Item Value Reference Range Interpretation Comments Sodium Lvl (test code = Sodium Lvl) 141 135-145 [facility]2016-01-21 13:03:00 Test Item Value Reference Range Interpretation Comments Chloride Lvl (test code = Chloride Lvl) 108 95-109 [facility]2016-01-21 13:03:00 Test Item Value Reference Range Interpretation Comments CO2 (test code = CO2) 20 24-32 [facility]2016-01-21 13:03:00 Test Item Value Reference Range Interpretation Comments Calcium Lvl (test code = Calcium Lvl) 8.9 8.5-10.5 [facility]2016-01-21 13:03:00 Test Item Value Reference Range Interpretation Comments AGAP (test code = AGAP) 17.1 10.0-20.0 [facility] CenterCxzzsrjJOPRBZPVLX5109-38-28 13:03:00 Test Item Value Reference Range Interpretation Comments Lymphocytes # (test code = Lymphocytes 2.3 1.0-5.5 #) [facility] CenterXcfwhskFOHUMHMPRR5940-26-11 13:03:00 Test Item Value Reference Range Interpretation Comments Basophils (test code = 1.0 See_Comment [Aut omated message] The Basophils) system which ge nerated this result tra nsmitted reference range : <=1.0. The reference r kat was not used to int erpret this result as normal/abnormal . [facility] CenterFspayubAXLBTHCDVC8761-36-48 13:03:00 Test Item Value Reference Range Interpretation Comments Segs-Bands # (test code = Segs-Bands #) 3.3 1.5-8.1 [facility] CenterPednsyqCYHBZPHCSY9560-44-15 13:03:00 Test Item Value Reference Range Interpretation Comments Eosinophils (test code = 2.5 See_Comment [A utomated message] The Eosinophils) system which ge nerated this result tra nsmitted reference range : <=4.0. The reference r kat was not used to int erpret this result as normal/abnormal . [facility] CenterOlcpmvpQZMPNITJOQ2399-42-57 13:03:00 Test Item Value Reference Range Interpretation Comments Eosinophils # (test code 0.2 See_Comment [A utomated message] The = Eosinophils #) system wh h generated this result tra nsmitted reference range : <=0.5. The reference r kat was not used to int erpret this result as normal/abnormal . [facility] CenterXkgvqpzKIOZDCSRYL5591-16-96 13:03:00 Test Item Value Reference Range Interpretation Comments Monocytes # (test code 0.7 See_Comment [Aut omated message] The = Monocytes #) system which generated this result tra nsmitted reference range : <=0.8. The reference r kat was not used to int erpret this result as normal/abnormal . [facility] CenterDyrzfdjEMMWHAXJZD0968-91-41 13:03:00 Test Item Value Reference Range Interpretation Comments Microcyte (test code = 1+ *ABN*(09/19/15 Microcyte) 7:03 AM) [facility] CenterFljxoqcCQOGTLLMDZ6172-51-78 13:03:00 Test Item Value Reference Range Interpretation Comments Basophils # (test code 0.1 See_Comment [Aut omated message] The = Basophils #) system which generated this result tra nsmitted reference range : <=0.2. The reference r kat was not used to int erpret this result as normal/abnormal . [facility] CenterArfudwmJHVPGWMRDI0286-26-66 13:03:00 Test Item Value Reference Range Interpretation Comments Monocytes (test code = Monocytes) 10.4 2.0-12.0 [facility] CenterEzozmhoFBIYLIBLWE3823-69-99 13:03:00 Test Item Value Reference Range Interpretation Comments Lymphocytes (test code = Lymphocytes) 35.3 20.0-40.0 [facility] CenterJgfsvhvIRVUZNNINZ8250-94-60 13:03:00 Test Item Value Reference Range Interpretation Comments Segs (test code = Segs) 50.8 45.0-75.0 [facility] CenterJawsqztZHYDLZFNME6030-77-94 13:03:00 Test Item Value Reference Range Interpretation Comments MCHC (test code = MCHC) 30.5 32.0-36.0 [facility] CenterIpxergqBYOHKZRHLZ2899-95-83 13:03:00 Test Item Value Reference Range Interpretation Comments Platelet (test code = Platelet) 175 133-450 [facility] CenterYvpxuetLQHPLBUNSK5008-63-79 13:03:00 Test Item Value Reference Range Interpretation Comments RDW (test code = RDW) 17.1 11.5-14.5 [facility] CenterXnxfignBALUTLFQTH6951-99-23 13:03:00 Test Item Value Reference Range Interpretation Comments MCV (test code = MCV) 78.4 80.0-98.0 [facility] CenterFyykljcVMHTCBWXVU9011-44-34 13:03:00 Test Item Value Reference Range Interpretation Comments MCH (test code = MCH) 24.0 pg 27.0-31.0 [facility] CenterYmtwlqwXXBKYWPKXM3599-44-56 13:03:00 Test Item Value Reference Range Interpretation Comments RBC (test code = RBC) 5.15 4.20-5.40 [facility] CenterAuefaqoMSWHEETMJU4314-25-27 13:03:00 Test Item Value Reference Range Interpretation Comments Hct (test code = Hct) 40.4 36.0-48.0 [facility] CenterNdxrjydVVYTJDWYEF8283-55-46 13:03:00 Test Item Value Reference Range Interpretation Comments WBC (test code = WBC) 6.5 3.7-10.4 [facility] CenterHzlvmhyVUDNFJRDXO2453-33-68 13:03:00 Test Item Value Reference Range Interpretation Comments MPV (test code = MPV) 10.2 7.4-10.4 [facility] CenterIqskwzbEGSSHSOENG9263-06-39 13:03:00 Test Item Value Reference Range Interpretation Comments Hgb (test code = Hgb) 12.3 12.0-16.0 [facility]2016-01-21 13:03:00 Test Item Value Reference Range Interpretation Comments Magnesium Lvl (test code = Magnesium 1.9 1.8-2.4 Lvl) [facility]2016-01-21 13:03:00 Test Item Value Reference Range Interpretation Comments eGFR (test code = eGFR) 127 [facility]2016-01-21 13:03:00 Test Item Value Reference Range Interpretation Comments Creatinine Lvl (test code = Creatinine 0.60 0.50-1.40 Lvl) [facility]2016-01-21 13:03:00 Test Item Value Reference Range Interpretation Comments Glucose Lvl (test code = Glucose Lvl) 82 70-99 [facility]2016-01-21 13:03:00 Test Item Value Reference Range Interpretation Comments BUN (test code = BUN) 7 7-22 [facility]2016-01-21 13:03:00 Test Item Value Reference Range Interpretation Comments Potassium Lvl (test code = Potassium 4.1 3.5-5.1 Lvl) [facility]2016-01-21 13:03:00 Test Item Value Reference Range Interpretation Comments Sodium Lvl (test code = Sodium Lvl) 141 135-145 [facility]2016-01-21 13:03:00 Test Item Value Reference Range Interpretation Comments Chloride Lvl (test code = Chloride Lvl) 108 95-109 [facility]2016-01-21 13:03:00 Test Item Value Reference Range Interpretation Comments CO2 (test code = CO2) 20 24-32 [facility]2016-01-21 13:03:00 Test Item Value Reference Range Interpretation Comments Calcium Lvl (test code = Calcium Lvl) 8.9 8.5-10.5 [facility]2016-01-21 13:03:00 Test Item Value Reference Range Interpretation Comments AGAP (test code = AGAP) 17.1 10.0-20.0 [facility] CenterChvurgpJAMDMCUMUC0358-00-35 13:03:00 Test Item Value Reference Range Interpretation Comments Lymphocytes # (test code = Lymphocytes 2.3 1.0-5.5 #) [facility] CenterKqwskoeDNRPHZQYIG5490-78-71 13:03:00 Test Item Value Reference Range Interpretation Comments Basophils (test code = 1.0 See_Comment [Aut omated message] The Basophils) system which ge nerated this result tra nsmitted reference range : <=1.0. The reference r kat was not used to int erpret this result as normal/abnormal . [facility] CenterRfryonyIHWUDMTBBF0533-84-80 13:03:00 Test Item Value Reference Range Interpretation Comments Segs-Bands # (test code = Segs-Bands #) 3.3 1.5-8.1 [facility] CenterTnuocahVUNCSDMWFY0258-63-52 13:03:00 Test Item Value Reference Range Interpretation Comments Eosinophils (test code = 2.5 See_Comment [A utomated message] The Eosinophils) system which ge nerated this result tra nsmitted reference range : <=4.0. The reference r kat was not used to int erpret this result as normal/abnormal . [facility] CenterNgvyjnyLYGXCWFOBT1406-33-87 13:03:00 Test Item Value Reference Range Interpretation Comments Eosinophils # (test code 0.2 See_Comment [A utomated message] The = Eosinophils #) system whic h generated this result tra nsmitted reference range : <=0.5. The reference r kat was not used to int erpret this result as normal/abnormal . [facility] CenterWejxgppSRWGRNPXFG3008-38-97 13:03:00 Test Item Value Reference Range Interpretation Comments Monocytes # (test code 0.7 See_Comment [Aut omated message] The = Monocytes #) system which generated this result tra nsmitted reference range : <=0.8. The reference r kat was not used to int erpret this result as normal/abnormal . [facility] CenterDgczgofEAFNAPNDGL0372-93-41 13:03:00 Test Item Value Reference Range Interpretation Comments Microcyte (test code = 1+ *ABN*(09/19/15 Microcyte) 7:03 AM) [facility] CenterLatkxmuQKUKFHNOEI7789-44-39 13:03:00 Test Item Value Reference Range Interpretation Comments Basophils # (test code 0.1 See_Comment [Aut omated message] The = Basophils #) system which generated this result tra nsmitted reference range : <=0.2. The reference r kat was not used to int erpret this result as normal/abnormal . [facility] CenterNwepyqtGUKSPTXQKL5426-38-84 13:03:00 Test Item Value Reference Range Interpretation Comments Monocytes (test code = Monocytes) 10.4 2.0-12.0 [facility] CenterNcqymnkKVJJXBOCAP0817-01-19 13:03:00 Test Item Value Reference Range Interpretation Comments Lymphocytes (test code = Lymphocytes) 35.3 20.0-40.0 [facility] CenterCvspfyjJNLNJJBXEF6586-39-19 13:03:00 Test Item Value Reference Range Interpretation Comments Segs (test code = Segs) 50.8 45.0-75.0 [facility] CenterQxrafnnJPNBJZUSGP2147-07-62 13:03:00 Test Item Value Reference Range Interpretation Comments MCHC (test code = MCHC) 30.5 32.0-36.0 [facility] CenterTitrrheUWQVNFBVHZ8776-91-15 13:03:00 Test Item Value Reference Range Interpretation Comments Platelet (test code = Platelet) 175 133-450 [facility] CenterDumetixDLGKTJTMGR9448-71-42 13:03:00 Test Item Value Reference Range Interpretation Comments RDW (test code = RDW) 17.1 11.5-14.5 [facility] CenterWfzxhenESHWDNPBHQ0173-46-31 13:03:00 Test Item Value Reference Range Interpretation Comments MCV (test code = MCV) 78.4 80.0-98.0 [facility] CenterPhhgtqgBWEBXCCGAZ4188-79-00 13:03:00 Test Item Value Reference Range Interpretation Comments MCH (test code = MCH) 24.0 pg 27.0-31.0 [facility] CenterQamlwxmNBLWVUZJIR3952-24-40 13:03:00 Test Item Value Reference Range Interpretation Comments RBC (test code = RBC) 5.15 4.20-5.40 [facility] CenterUtomuuqGHDJKECRIV1519-53-69 13:03:00 Test Item Value Reference Range Interpretation Comments Hct (test code = Hct) 40.4 36.0-48.0 [facility] CenterKmhqhqrFDCCGMXEPQ8555-84-83 13:03:00 Test Item Value Reference Range Interpretation Comments WBC (test code = WBC) 6.5 3.7-10.4 [facility] CenterPpbqgzpWRIYFDTSIQ8665-27-11 13:03:00 Test Item Value Reference Range Interpretation Comments MPV (test code = MPV) 10.2 7.4-10.4 [facility] CenterCpduwjpUEPSUBYAER0104-41-74 13:03:00 Test Item Value Reference Range Interpretation Comments Hgb (test code = Hgb) 12.3 12.0-16.0 [facility]2016-01-21 13:03:00 Test Item Value Reference Range Interpretation Comments Magnesium Lvl (test code = Magnesium 1.9 1.8-2.4 Lvl) [facility]2016-01-21 13:03:00 Test Item Value Reference Range Interpretation Comments eGFR (test code = eGFR) 127 [facility]2016-01-21 13:03:00 Test Item Value Reference Range Interpretation Comments Creatinine Lvl (test code = Creatinine 0.60 0.50-1.40 Lvl) [facility]2016-01-21 13:03:00 Test Item Value Reference Range Interpretation Comments Glucose Lvl (test code = Glucose Lvl) 82 70-99 [facility]2016-01-21 13:03:00 Test Item Value Reference Range Interpretation Comments BUN (test code = BUN) 7 7-22 [facility]2016-01-21 13:03:00 Test Item Value Reference Range Interpretation Comments Potassium Lvl (test code = Potassium 4.1 3.5-5.1 Lvl) [facility]2016-01-21 13:03:00 Test Item Value Reference Range Interpretation Comments Sodium Lvl (test code = Sodium Lvl) 141 135-145 [facility]2016-01-21 13:03:00 Test Item Value Reference Range Interpretation Comments Chloride Lvl (test code = Chloride Lvl) 108 95-109 [facility]2016-01-21 13:03:00 Test Item Value Reference Range Interpretation Comments CO2 (test code = CO2) 20 24-32 [facility]2016-01-21 13:03:00 Test Item Value Reference Range Interpretation Comments Calcium Lvl (test code = Calcium Lvl) 8.9 8.5-10.5 [facility]2016-01-21 13:03:00 Test Item Value Reference Range Interpretation Comments AGAP (test code = AGAP) 17.1 10.0-20.0 [facility] CenterG[id number] 13:03:00 Test Item Value Reference Range Interpretation Comments Lymphocytes # (test code = Lymphocytes 2.3 1.0-5.5 #) [facility] CenterMnqzxwdKOUVEDIMVZ2110-49-73 13:03:00 Test Item Value Reference Range Interpretation Comments Basophils (test code = 1.0 See_Comment [Aut omated message] The Basophils) system which ge nerated this result tra nsmitted reference range : <=1.0. The reference r kat was not used to int erpret this result as normal/abnormal . [facility] CenterLtjdxqzNWCSNNZDRL2938-48-07 13:03:00 Test Item Value Reference Range Interpretation Comments Segs-Bands # (test code = Segs-Bands #) 3.3 1.5-8.1 [facility] CenterPupwtgwXHQKMOKDYP9926-12-03 13:03:00 Test Item Value Reference Range Interpretation Comments Eosinophils (test code = 2.5 See_Comment [A utomated message] The Eosinophils) system which ge nerated this result tra nsmitted reference range : <=4.0. The reference r kat was not used to int erpret this result as normal/abnormal . [facility] CenterOpbqjzwBYOPTUQEWW9066-25-46 13:03:00 Test Item Value Reference Range Interpretation Comments Eosinophils # (test code 0.2 See_Comment [A utomated message] The = Eosinophils #) system whic h generated this result tra nsmitted reference range : <=0.5. The reference r kat was not used to int erpret this result as normal/abnormal . [facility] CenterApvumriSPHFOYTEVC7240-19-56 13:03:00 Test Item Value Reference Range Interpretation Comments Monocytes # (test code 0.7 See_Comment [Aut omated message] The = Monocytes #) system which generated this result tra nsmitted reference range : <=0.8. The reference r kat was not used to int erpret this result as normal/abnormal . [facility] CenterJfwrshwGYYDGFDVAO4010-56-08 13:03:00 Test Item Value Reference Range Interpretation Comments Microcyte (test code = 1+ *ABN*(09/19/15 Microcyte) 7:03 AM) [facility] CenterRhiogniNGPJKNISUL1920-72-08 13:03:00 Test Item Value Reference Range Interpretation Comments Basophils # (test code 0.1 See_Comment [Aut omated message] The = Basophils #) system which generated this result tra nsmitted reference range : <=0.2. The reference r kat was not used to int erpret this result as normal/abnormal . [facility] CenterCsbsxnbHJMMJPZHQT6774-53-37 13:03:00 Test Item Value Reference Range Interpretation Comments Monocytes (test code = Monocytes) 10.4 2.0-12.0 [facility] CenterPxngvkcVSXCDTNSPP8863-41-13 13:03:00 Test Item Value Reference Range Interpretation Comments Lymphocytes (test code = Lymphocytes) 35.3 20.0-40.0 [facility] CenterYbfubwqYEPQTUHANA4454-56-35 13:03:00 Test Item Value Reference Range Interpretation Comments Segs (test code = Segs) 50.8 45.0-75.0 [facility] CenterCvqlablYKGGUVHNFZ3295-88-93 13:03:00 Test Item Value Reference Range Interpretation Comments MCHC (test code = MCHC) 30.5 32.0-36.0 [facility] CenterAtwuhqkMYHAXIDMZB5307-64-44 13:03:00 Test Item Value Reference Range Interpretation Comments Platelet (test code = Platelet) 175 133-450 [facility] CenterZdnahizABTBPHVBRP2420-48-44 13:03:00 Test Item Value Reference Range Interpretation Comments RDW (test code = RDW) 17.1 11.5-14.5 [facility] CenterSqftuuiGYFJLVVSZE7739-60-41 13:03:00 Test Item Value Reference Range Interpretation Comments MCV (test code = MCV) 78.4 80.0-98.0 [facility] CenterDrlyhghTAIBVFYEPQ9399-60-50 13:03:00 Test Item Value Reference Range Interpretation Comments MCH (test code = MCH) 24.0 pg 27.0-31.0 [facility] CenterBuzgpfwVDOOPFCQHO0048-75-17 13:03:00 Test Item Value Reference Range Interpretation Comments RBC (test code = RBC) 5.15 4.20-5.40 [facility] CenterKlolcqjHRHGZKGENS0047-38-51 13:03:00 Test Item Value Reference Range Interpretation Comments Hct (test code = Hct) 40.4 36.0-48.0 [facility] CenterPzoleunRXOGSUCPTQ0632-85-58 13:03:00 Test Item Value Reference Range Interpretation Comments WBC (test code = WBC) 6.5 3.7-10.4 [facility] CenterAevdcuoDPXXUUCCOB7878-68-48 13:03:00 Test Item Value Reference Range Interpretation Comments MPV (test code = MPV) 10.2 7.4-10.4 [facility] CenterPeigrstXIFQEUOMON6304-73-36 13:03:00 Test Item Value Reference Range Interpretation Comments Hgb (test code = Hgb) 12.3 12.0-16.0 [facility]2016-01-21 13:03:00 Test Item Value Reference Range Interpretation Comments Magnesium Lvl (test code = Magnesium 1.9 1.8-2.4 Lvl) [facility]2016-01-21 13:03:00 Test Item Value Reference Range Interpretation Comments eGFR (test code = eGFR) 127 [facility]2016-01-21 13:03:00 Test Item Value Reference Range Interpretation Comments Creatinine Lvl (test code = Creatinine 0.60 0.50-1.40 Lvl) [facility]2016-01-21 13:03:00 Test Item Value Reference Range Interpretation Comments Glucose Lvl (test code = Glucose Lvl) 82 70-99 [facility]2016-01-21 13:03:00 Test Item Value Reference Range Interpretation Comments BUN (test code = BUN) 7 7-22 [facility]2016-01-21 13:03:00 Test Item Value Reference Range Interpretation Comments Potassium Lvl (test code = Potassium 4.1 3.5-5.1 Lvl) [facility]2016-01-21 13:03:00 Test Item Value Reference Range Interpretation Comments Sodium Lvl (test code = Sodium Lvl) 141 135-145 [facility]2016-01-21 13:03:00 Test Item Value Reference Range Interpretation Comments Chloride Lvl (test code = Chloride Lvl) 108 95-109 [facility]2016-01-21 13:03:00 Test Item Value Reference Range Interpretation Comments CO2 (test code = CO2) 20 24-32 [facility]2016-01-21 13:03:00 Test Item Value Reference Range Interpretation Comments Calcium Lvl (test code = Calcium Lvl) 8.9 8.5-10.5 [facility]2016-01-21 13:03:00 Test Item Value Reference Range Interpretation Comments AGAP (test code = AGAP) 17.1 10.0-20.0 [facility] CenterPdzpzetETSUILLBFU6696-86-92 13:03:00 Test Item Value Reference Range Interpretation Comments Lymphocytes # (test code = Lymphocytes 2.3 1.0-5.5 #) [facility] CenterWmhlbgwBHBKVHVTSN3594-64-42 13:03:00 Test Item Value Reference Range Interpretation Comments Basophils (test code = 1.0 See_Comment [Aut omated message] The Basophils) system which ge nerated this result tra nsmitted reference range : <=1.0. The reference r kat was not used to int erpret this result as normal/abnormal . [facility] CenterWxxxuniMGJMPRIFRL0648-39-41 13:03:00 Test Item Value Reference Range Interpretation Comments Segs-Bands # (test code = Segs-Bands #) 3.3 1.5-8.1 [facility] CenterOozlwqnODRIXLPYQL8029-10-05 13:03:00 Test Item Value Reference Range Interpretation Comments Eosinophils (test code = 2.5 See_Comment [A utomated message] The Eosinophils) system which ge nerated this result tra nsmitted reference range : <=4.0. The reference r kat was not used to int erpret this result as normal/abnormal . [facility] CenterYmelnfiOUQCOLXSRV1112-56-66 13:03:00 Test Item Value Reference Range Interpretation Comments Eosinophils # (test code 0.2 See_Comment [A utomated message] The = Eosinophils #) system whic h generated this result tra nsmitted reference range : <=0.5. The reference r kat was not used to int erpret this result as normal/abnormal . [facility] CenterRlbuocfOBHNCYVGVB8330-88-54 13:03:00 Test Item Value Reference Range Interpretation Comments Monocytes # (test code 0.7 See_Comment [Aut omated message] The = Monocytes #) system which generated this result tra nsmitted reference range : <=0.8. The reference r kat was not used to int erpret this result as normal/abnormal . [facility] CenterVuvkmvlLLBUDFQXLC4384-37-24 13:03:00 Test Item Value Reference Range Interpretation Comments Microcyte (test code = 1+ *ABN*(09/19/15 Microcyte) 7:03 AM) [facility] CenterVofxnkrMPEJODJISZ4467-66-63 13:03:00 Test Item Value Reference Range Interpretation Comments Basophils # (test code 0.1 See_Comment [Aut omated message] The = Basophils #) system which generated this result tra nsmitted reference range : <=0.2. The reference r kat was not used to int erpret this result as normal/abnormal . [facility] CenterMscghenVNABQVRLNX5772-24-15 13:03:00 Test Item Value Reference Range Interpretation Comments Monocytes (test code = Monocytes) 10.4 2.0-12.0 [facility] CenterCxakvjdKBPIOKWFZE6410-44-53 13:03:00 Test Item Value Reference Range Interpretation Comments Lymphocytes (test code = Lymphocytes) 35.3 20.0-40.0 [facility] CenterNsxvqxmIPHQMDCARY9583-05-57 13:03:00 Test Item Value Reference Range Interpretation Comments Segs (test code = Segs) 50.8 45.0-75.0 [facility] CenterZschagbTXZXNHQSPT0708-29-18 13:03:00 Test Item Value Reference Range Interpretation Comments MCHC (test code = MCHC) 30.5 32.0-36.0 [facility] CenterCjjwcqxQWPTHBLGVX3706-13-17 13:03:00 Test Item Value Reference Range Interpretation Comments Platelet (test code = Platelet) 175 133-450 [facility] CenterSunjrtqXRHPJFUUVR0169-09-38 13:03:00 Test Item Value Reference Range Interpretation Comments RDW (test code = RDW) 17.1 11.5-14.5 [facility] CenterZcxxvgwSTQLZMZJKS0844-49-57 13:03:00 Test Item Value Reference Range Interpretation Comments MCV (test code = MCV) 78.4 80.0-98.0 [facility] CenterTjxcobdVVFDHMFUIJ5454-26-22 13:03:00 Test Item Value Reference Range Interpretation Comments MCH (test code = MCH) 24.0 pg 27.0-31.0 [facility] CenterKxvwrgqLNNNHPXENF8540-42-02 13:03:00 Test Item Value Reference Range Interpretation Comments RBC (test code = RBC) 5.15 4.20-5.40 [facility] CenterWceqdpvUCJGJWIAQH1394-95-35 13:03:00 Test Item Value Reference Range Interpretation Comments Hct (test code = Hct) 40.4 36.0-48.0 [facility] CenterBxcwqdhDMMOYTTNRI3632-70-09 13:03:00 Test Item Value Reference Range Interpretation Comments WBC (test code = WBC) 6.5 3.7-10.4 [facility] CenterIiqiesdNFDBMEFQCF5117-77-60 13:03:00 Test Item Value Reference Range Interpretation Comments MPV (test code = MPV) 10.2 7.4-10.4 [facility] CenterFphfuwvURPVDQZCSZ9401-70-11 13:03:00 Test Item Value Reference Range Interpretation Comments Hgb (test code = Hgb) 12.3 12.0-16.0 [facility]2016-01-21 13:03:00 Test Item Value Reference Range Interpretation Comments Magnesium Lvl (test code = Magnesium 1.9 1.8-2.4 Lvl) [facility]2016-01-21 13:03:00 Test Item Value Reference Range Interpretation Comments eGFR (test code = eGFR) 127 [facility]2016-01-21 13:03:00 Test Item Value Reference Range Interpretation Comments Creatinine Lvl (test code = Creatinine 0.60 0.50-1.40 Lvl) [facility]2016-01-21 13:03:00 Test Item Value Reference Range Interpretation Comments Glucose Lvl (test code = Glucose Lvl) 82 70-99 [facility]2016-01-21 13:03:00 Test Item Value Reference Range Interpretation Comments BUN (test code = BUN) 7 7-22 [facility]2016-01-21 13:03:00 Test Item Value Reference Range Interpretation Comments Potassium Lvl (test code = Potassium 4.1 3.5-5.1 Lvl) [facility]2016-01-21 13:03:00 Test Item Value Reference Range Interpretation Comments Sodium Lvl (test code = Sodium Lvl) 141 135-145 [facility]2016-01-21 13:03:00 Test Item Value Reference Range Interpretation Comments Chloride Lvl (test code = Chloride Lvl) 108 95-109 [facility]2016-01-21 13:03:00 Test Item Value Reference Range Interpretation Comments CO2 (test code = CO2) 20 24-32 [facility]2016-01-21 13:03:00 Test Item Value Reference Range Interpretation Comments Calcium Lvl (test code = Calcium Lvl) 8.9 8.5-10.5 [facility]2016-01-21 13:03:00 Test Item Value Reference Range Interpretation Comments AGAP (test code = AGAP) 17.1 10.0-20.0 [facility] CenterRidpfbeKJKBHGZNWJ4315-12-21 13:03:00 Test Item Value Reference Range Interpretation Comments Lymphocytes # (test code = Lymphocytes 2.3 1.0-5.5 #) [facility] CenterTxjpgjfTGBRAGLMZS4926-55-22 13:03:00 Test Item Value Reference Range Interpretation Comments Basophils (test code = 1.0 See_Comment [Aut omated message] The Basophils) system which ge nerated this result tra nsmitted reference range : <=1.0. The reference r kat was not used to int erpret this result as normal/abnormal . [facility] CenterLazgtufNMPWZAERPQ1371-66-11 13:03:00 Test Item Value Reference Range Interpretation Comments Segs-Bands # (test code = Segs-Bands #) 3.3 1.5-8.1 [facility] CenterBukdbphTIWIAEKFPR6150-79-19 13:03:00 Test Item Value Reference Range Interpretation Comments Eosinophils (test code = 2.5 See_Comment [A utomated message] The Eosinophils) system which ge nerated this result tra nsmitted reference range : <=4.0. The reference r kat was not used to int erpret this result as normal/abnormal . [facility] CenterMqtsmvrGXVUKBHPQH0541-73-77 13:03:00 Test Item Value Reference Range Interpretation Comments Eosinophils # (test code 0.2 See_Comment [A utomated message] The = Eosinophils #) system whic h generated this result tra nsmitted reference range : <=0.5. The reference r kat was not used to int erpret this result as normal/abnormal . [facility] CenterUmsnrbsJTJOOBNTJP1490-87-91 13:03:00 Test Item Value Reference Range Interpretation Comments Monocytes # (test code 0.7 See_Comment [Aut omated message] The = Monocytes #) system which generated this result tra nsmitted reference range : <=0.8. The reference r kat was not used to int erpret this result as normal/abnormal . [facility] CenterAjpuouzVYWXUMHMIL0797-46-00 13:03:00 Test Item Value Reference Range Interpretation Comments Microcyte (test code = 1+ *ABN*(09/19/15 Microcyte) 7:03 AM) [facility] CenterIqcogvrXEOZHOGGPL7366-76-76 13:03:00 Test Item Value Reference Range Interpretation Comments Basophils # (test code 0.1 See_Comment [Aut omated message] The = Basophils #) system which generated this result tra nsmitted reference range : <=0.2. The reference r kat was not used to int erpret this result as normal/abnormal . [facility] CenterXkgheelXQCENYFGUQ8914-43-78 13:03:00 Test Item Value Reference Range Interpretation Comments Monocytes (test code = Monocytes) 10.4 2.0-12.0 [facility] CenterBdzldytQLVGIPLTKD6622-26-23 13:03:00 Test Item Value Reference Range Interpretation Comments Lymphocytes (test code = Lymphocytes) 35.3 20.0-40.0 [facility] CenterSwhtlmaDCOVCTEWEY5437-44-11 13:03:00 Test Item Value Reference Range Interpretation Comments Segs (test code = Segs) 50.8 45.0-75.0 [facility] CenterGeefdtvMTCWYGQNAN9490-47-20 13:03:00 Test Item Value Reference Range Interpretation Comments MCHC (test code = MCHC) 30.5 32.0-36.0 [facility] CenterEfykgfyVBVQGRWJCC3464-99-10 13:03:00 Test Item Value Reference Range Interpretation Comments Platelet (test code = Platelet) 175 133-450 [facility] CenterMmngiwkJNVZBWKWZR9661-29-94 13:03:00 Test Item Value Reference Range Interpretation Comments RDW (test code = RDW) 17.1 11.5-14.5 [facility] CenterNesclkrTURYQQGHQB1619-81-01 13:03:00 Test Item Value Reference Range Interpretation Comments MCV (test code = MCV) 78.4 80.0-98.0 [facility] CenterYilujokZDNXDGHXQW2777-37-61 13:03:00 Test Item Value Reference Range Interpretation Comments MCH (test code = MCH) 24.0 pg 27.0-31.0 [facility] CenterEvljtsrSJUXAQJVAU9666-86-15 13:03:00 Test Item Value Reference Range Interpretation Comments RBC (test code = RBC) 5.15 4.20-5.40 [facility] CenterYdnrutcOHARDGHUOV3606-52-50 13:03:00 Test Item Value Reference Range Interpretation Comments Hct (test code = Hct) 40.4 36.0-48.0 [facility] CenterZbzewfeEMCPHIDXNW3793-09-82 13:03:00 Test Item Value Reference Range Interpretation Comments WBC (test code = WBC) 6.5 3.7-10.4 [facility] CenterPxdezlvXAUGNJZOPN8848-96-02 13:03:00 Test Item Value Reference Range Interpretation Comments MPV (test code = MPV) 10.2 7.4-10.4 [facility] CenterMtlipghDPKYHUPALS8928-23-18 13:03:00 Test Item Value Reference Range Interpretation Comments Hgb (test code = Hgb) 12.3 12.0-16.0 [facility]2016-01-21 13:03:00 Test Item Value Reference Range Interpretation Comments Magnesium Lvl (test code = Magnesium 1.9 1.8-2.4 Lvl) [facility]2016-01-21 13:03:00 Test Item Value Reference Range Interpretation Comments eGFR (test code = eGFR) 127 [facility]2016-01-21 13:03:00 Test Item Value Reference Range Interpretation Comments Creatinine Lvl (test code = Creatinine 0.60 0.50-1.40 Lvl) [facility]2016-01-21 13:03:00 Test Item Value Reference Range Interpretation Comments Glucose Lvl (test code = Glucose Lvl) 82 70-99 [facility]2016-01-21 13:03:00 Test Item Value Reference Range Interpretation Comments BUN (test code = BUN) 7 7-22 [facility]2016-01-21 13:03:00 Test Item Value Reference Range Interpretation Comments Potassium Lvl (test code = Potassium 4.1 3.5-5.1 Lvl) [facility]2016-01-21 13:03:00 Test Item Value Reference Range Interpretation Comments Sodium Lvl (test code = Sodium Lvl) 141 135-145 [facility]2016-01-21 13:03:00 Test Item Value Reference Range Interpretation Comments Chloride Lvl (test code = Chloride Lvl) 108 95-109 [facility]2016-01-21 13:03:00 Test Item Value Reference Range Interpretation Comments CO2 (test code = CO2) 20 24-32 [facility]2016-01-21 13:03:00 Test Item Value Reference Range Interpretation Comments Calcium Lvl (test code = Calcium Lvl) 8.9 8.5-10.5 [facility]2016-01-21 13:03:00 Test Item Value Reference Range Interpretation Comments AGAP (test code = AGAP) 17.1 10.0-20.0 [facility] CenterBijkrdlKDBPMCXYFW3833-32-02 13:03:00 Test Item Value Reference Range Interpretation Comments Lymphocytes # (test code = Lymphocytes 2.3 1.0-5.5 #) [facility] CenterNurdqlnCGFBDPSSFJ5107-31-38 13:03:00 Test Item Value Reference Range Interpretation Comments Basophils (test code = 1.0 See_Comment [Aut omated message] The Basophils) system which ge nerated this result tra nsmitted reference range : <=1.0. The reference r kat was not used to int erpret this result as normal/abnormal . [facility] CenterYpknidyRNSEFVYHTA7254-49-00 13:03:00 Test Item Value Reference Range Interpretation Comments Segs-Bands # (test code = Segs-Bands #) 3.3 1.5-8.1 [facility] CenterFvdqtjaJDEYGXMAOC4237-11-28 13:03:00 Test Item Value Reference Range Interpretation Comments Eosinophils (test code = 2.5 See_Comment [A utomated message] The Eosinophils) system which ge nerated this result tra nsmitted reference range : <=4.0. The reference r kat was not used to int erpret this result as normal/abnormal . [facility] CenterMojaaqgZQUDKKXPDD8199-38-07 13:03:00 Test Item Value Reference Range Interpretation Comments Eosinophils # (test code 0.2 See_Comment [A utomated message] The = Eosinophils #) system whic h generated this result tra nsmitted reference range : <=0.5. The reference r kat was not used to int erpret this result as normal/abnormal . [facility] CenterSrxhgrpDGCKPGKAFB2388-77-72 13:03:00 Test Item Value Reference Range Interpretation Comments Monocytes # (test code 0.7 See_Comment [Aut omated message] The = Monocytes #) system which generated this result tra nsmitted reference range : <=0.8. The reference r kat was not used to int erpret this result as normal/abnormal . [facility] CenterZufwtzbETZNXGEFCS9978-43-91 13:03:00 Test Item Value Reference Range Interpretation Comments Microcyte (test code = 1+ *ABN*(09/19/15 Microcyte) 7:03 AM) [facility] CenterIggnrdlTUQGHECTSE7718-29-81 13:03:00 Test Item Value Reference Range Interpretation Comments Basophils # (test code 0.1 See_Comment [Aut omated message] The = Basophils #) system which generated this result tra nsmitted reference range : <=0.2. The reference r kat was not used to int erpret this result as normal/abnormal . [facility] CenterBapkbqwDDDCLRLTYD7732-38-44 13:03:00 Test Item Value Reference Range Interpretation Comments Monocytes (test code = Monocytes) 10.4 2.0-12.0 [facility] CenterLldomycNRRKHDAZFW1622-32-18 13:03:00 Test Item Value Reference Range Interpretation Comments Lymphocytes (test code = Lymphocytes) 35.3 20.0-40.0 [facility] CenterRtttzziRRWQQDINLN9630-00-46 13:03:00 Test Item Value Reference Range Interpretation Comments Segs (test code = Segs) 50.8 45.0-75.0 [facility] CenterCnfnngxGNWCSRJPDQ8215-53-31 13:03:00 Test Item Value Reference Range Interpretation Comments MCHC (test code = MCHC) 30.5 32.0-36.0 [facility] CenterScztungLVNDGMYFGD2709-61-19 13:03:00 Test Item Value Reference Range Interpretation Comments Platelet (test code = Platelet) 175 133-450 [facility] CenterChdlbprNZDVXHYGAX8017-08-78 13:03:00 Test Item Value Reference Range Interpretation Comments RDW (test code = RDW) 17.1 11.5-14.5 [facility] CenterMppametNYKLFBVGJV2928-74-68 13:03:00 Test Item Value Reference Range Interpretation Comments MCV (test code = MCV) 78.4 80.0-98.0 [facility] CenterXdclnvhTRZINDZMII8002-72-84 13:03:00 Test Item Value Reference Range Interpretation Comments MCH (test code = MCH) 24.0 pg 27.0-31.0 [facility] CenterUsjjxooEYHXEUBNHD8960-59-69 13:03:00 Test Item Value Reference Range Interpretation Comments RBC (test code = RBC) 5.15 4.20-5.40 [facility] CenterBvthruiHLIDWMBALV9061-72-72 13:03:00 Test Item Value Reference Range Interpretation Comments Hct (test code = Hct) 40.4 36.0-48.0 [facility] CenterUidiixrXPWLIFNUBP4106-30-78 13:03:00 Test Item Value Reference Range Interpretation Comments WBC (test code = WBC) 6.5 3.7-10.4 [facility] CenterYlkniooOQIBTZADJI4146-25-64 13:03:00 Test Item Value Reference Range Interpretation Comments MPV (test code = MPV) 10.2 7.4-10.4 [facility] CenterGbeguavVTPRTTTLMN6792-71-68 13:03:00 Test Item Value Reference Range Interpretation Comments Hgb (test code = Hgb) 12.3 12.0-16.0 [facility]2016-01-21 13:03:00 Test Item Value Reference Range Interpretation Comments Magnesium Lvl (test code = Magnesium 1.9 1.8-2.4 Lvl) [facility]2016-01-21 13:03:00 Test Item Value Reference Range Interpretation Comments eGFR (test code = eGFR) 127 [facility]2016-01-21 13:03:00 Test Item Value Reference Range Interpretation Comments Creatinine Lvl (test code = Creatinine 0.60 0.50-1.40 Lvl) [facility]2016-01-21 13:03:00 Test Item Value Reference Range Interpretation Comments Glucose Lvl (test code = Glucose Lvl) 82 70-99 [facility]2016-01-21 13:03:00 Test Item Value Reference Range Interpretation Comments BUN (test code = BUN) 7 7-22 [facility]2016-01-21 13:03:00 Test Item Value Reference Range Interpretation Comments Potassium Lvl (test code = Potassium 4.1 3.5-5.1 Lvl) [facility]2016-01-21 13:03:00 Test Item Value Reference Range Interpretation Comments Sodium Lvl (test code = Sodium Lvl) 141 135-145 [facility]2016-01-21 13:03:00 Test Item Value Reference Range Interpretation Comments Chloride Lvl (test code = Chloride Lvl) 108 95-109 [facility]2016-01-21 13:03:00 Test Item Value Reference Range Interpretation Comments CO2 (test code = CO2) 20 24-32 [facility]2016-01-21 13:03:00 Test Item Value Reference Range Interpretation Comments Calcium Lvl (test code = Calcium Lvl) 8.9 8.5-10.5 [facility]2016-01-21 13:03:00 Test Item Value Reference Range Interpretation Comments AGAP (test code = AGAP) 17.1 10.0-20.0 [facility] CenterGzkozclSHMMWTYFWK6076-57-12 13:03:00 Test Item Value Reference Range Interpretation Comments Lymphocytes # (test code = Lymphocytes 2.3 1.0-5.5 #) [facility] CenterErroszrUTCWSMQPSU4278-50-30 13:03:00 Test Item Value Reference Range Interpretation Comments Basophils (test code = 1.0 See_Comment [Aut omated message] The Basophils) system which ge nerated this result tra nsmitted reference range : <=1.0. The reference r kat was not used to int erpret this result as normal/abnormal . [facility] CenterSlelzmkVHQSRLNBMP3761-86-14 13:03:00 Test Item Value Reference Range Interpretation Comments Segs-Bands # (test code = Segs-Bands #) 3.3 1.5-8.1 [facility] CenterQgxthjfCEFDRCSSNF3362-26-42 13:03:00 Test Item Value Reference Range Interpretation Comments Eosinophils (test code = 2.5 See_Comment [A utomated message] The Eosinophils) system which ge nerated this result tra nsmitted reference range : <=4.0. The reference r kat was not used to int erpret this result as normal/abnormal . [facility] CenterXgsgqwsCERYNDAXQU8142-03-16 13:03:00 Test Item Value Reference Range Interpretation Comments Eosinophils # (test code 0.2 See_Comment [A utomated message] The = Eosinophils #) system whic h generated this result tra nsmitted reference range : <=0.5. The reference r kat was not used to int erpret this result as normal/abnormal . [facility] CenterVfqyurbKRTVBTCHUL0688-43-50 13:03:00 Test Item Value Reference Range Interpretation Comments Monocytes # (test code 0.7 See_Comment [Aut omated message] The = Monocytes #) system which generated this result tra nsmitted reference range : <=0.8. The reference r kat was not used to int erpret this result as normal/abnormal . [facility] CenterZczlybcJBHMBNESBB2917-15-78 13:03:00 Test Item Value Reference Range Interpretation Comments Microcyte (test code = 1+ *ABN*(09/19/15 Microcyte) 7:03 AM) [facility] CenterUufkyspLICXTLLNHK1948-17-94 13:03:00 Test Item Value Reference Range Interpretation Comments Basophils # (test code 0.1 See_Comment [Aut omated message] The = Basophils #) system which generated this result tra nsmitted reference range : <=0.2. The reference r kat was not used to int erpret this result as normal/abnormal . [facility] CenterMnivsnjXFTTZYYUTD1067-55-20 13:03:00 Test Item Value Reference Range Interpretation Comments Monocytes (test code = Monocytes) 10.4 2.0-12.0 [facility] CenterEfbdmhhTPYVODUSTI2645-05-25 13:03:00 Test Item Value Reference Range Interpretation Comments Lymphocytes (test code = Lymphocytes) 35.3 20.0-40.0 [facility] CenterDxrvjoxTGRVWYJBRS7693-87-11 13:03:00 Test Item Value Reference Range Interpretation Comments Segs (test code = Segs) 50.8 45.0-75.0 [facility] CenterWybiasiBEDJDNPUSC4162-92-94 13:03:00 Test Item Value Reference Range Interpretation Comments MCHC (test code = MCHC) 30.5 32.0-36.0 [facility] CenterXouucodITDNKQYJVA9695-91-01 13:03:00 Test Item Value Reference Range Interpretation Comments Platelet (test code = Platelet) 175 133-450 [facility] CenterDyordgpEKUJYYSJUN0025-27-47 13:03:00 Test Item Value Reference Range Interpretation Comments RDW (test code = RDW) 17.1 11.5-14.5 [facility] CenterYsquafbGQPYPIITQN8427-81-58 13:03:00 Test Item Value Reference Range Interpretation Comments MCV (test code = MCV) 78.4 80.0-98.0 [facility] CenterEicmmocWGSABNHOTD8634-35-79 13:03:00 Test Item Value Reference Range Interpretation Comments MCH (test code = MCH) 24.0 pg 27.0-31.0 [facility] CenterLziypkcWIHRSXBSYK2589-73-57 13:03:00 Test Item Value Reference Range Interpretation Comments RBC (test code = RBC) 5.15 4.20-5.40 [facility] CenterYjwejyxJHDKRSRUHO9177-27-89 13:03:00 Test Item Value Reference Range Interpretation Comments Hct (test code = Hct) 40.4 36.0-48.0 [facility] CenterIsewhwaSFWOIQOCIF5194-83-78 13:03:00 Test Item Value Reference Range Interpretation Comments WBC (test code = WBC) 6.5 3.7-10.4 [facility] CenterKqafxehSBWGOWGLJS2005-42-95 13:03:00 Test Item Value Reference Range Interpretation Comments MPV (test code = MPV) 10.2 7.4-10.4 [facility] CenterXmeanjkGWOTESAZAR0701-17-47 13:03:00 Test Item Value Reference Range Interpretation Comments Hgb (test code = Hgb) 12.3 12.0-16.0 [facility]2016-01-21 13:03:00 Test Item Value Reference Range Interpretation Comments Magnesium Lvl (test code = Magnesium 1.9 1.8-2.4 Lvl) [facility]2016-01-21 13:03:00 Test Item Value Reference Range Interpretation Comments eGFR (test code = eGFR) 127 [facility]2016-01-21 13:03:00 Test Item Value Reference Range Interpretation Comments Creatinine Lvl (test code = Creatinine 0.60 0.50-1.40 Lvl) [facility]2016-01-21 13:03:00 Test Item Value Reference Range Interpretation Comments Glucose Lvl (test code = Glucose Lvl) 82 70-99 [facility]2016-01-21 13:03:00 Test Item Value Reference Range Interpretation Comments BUN (test code = BUN) 7 7-22 [facility]2016-01-21 13:03:00 Test Item Value Reference Range Interpretation Comments Potassium Lvl (test code = Potassium 4.1 3.5-5.1 Lvl) [facility]2016-01-21 13:03:00 Test Item Value Reference Range Interpretation Comments Sodium Lvl (test code = Sodium Lvl) 141 135-145 [facility]2016-01-21 13:03:00 Test Item Value Reference Range Interpretation Comments Chloride Lvl (test code = Chloride Lvl) 108 95-109 [facility]2016-01-21 13:03:00 Test Item Value Reference Range Interpretation Comments CO2 (test code = CO2) 20 24-32 [facility]2016-01-21 13:03:00 Test Item Value Reference Range Interpretation Comments Calcium Lvl (test code = Calcium Lvl) 8.9 8.5-10.5 [facility]2016-01-21 13:03:00 Test Item Value Reference Range Interpretation Comments AGAP (test code = AGAP) 17.1 10.0-20.0 [facility] CenterNmumzyoXAZNSBPPHP4634-93-31 13:03:00 Test Item Value Reference Range Interpretation Comments Lymphocytes # (test code = Lymphocytes 2.3 1.0-5.5 #) [facility] CenterCqxgyljZPICUROFDL8128-53-80 13:03:00 Test Item Value Reference Range Interpretation Comments Basophils (test code = 1.0 See_Comment [Aut omated message] The Basophils) system which ge nerated this result tra nsmitted reference range : <=1.0. The reference r kat was not used to int erpret this result as normal/abnormal . [facility] CenterXphgewnKWVEHJFSWM4756-05-94 13:03:00 Test Item Value Reference Range Interpretation Comments Segs-Bands # (test code = Segs-Bands #) 3.3 1.5-8.1 [facility] CenterGrkmqkmJZFFHYTGCK4267-86-29 13:03:00 Test Item Value Reference Range Interpretation Comments Eosinophils (test code = 2.5 See_Comment [A utomated message] The Eosinophils) system which ge nerated this result tra nsmitted reference range : <=4.0. The reference r kat was not used to int erpret this result as normal/abnormal . [facility] CenterPyeeaerHPUDPOUGYW5034-49-65 13:03:00 Test Item Value Reference Range Interpretation Comments Eosinophils # (test code 0.2 See_Comment [A utomated message] The = Eosinophils #) system whic h generated this result tra nsmitted reference range : <=0.5. The reference r kat was not used to int erpret this result as normal/abnormal . [facility] CenterWhkynsgAZTVOIZXNX2212-33-41 13:03:00 Test Item Value Reference Range Interpretation Comments Monocytes # (test code 0.7 See_Comment [Aut omated message] The = Monocytes #) system which generated this result tra nsmitted reference range : <=0.8. The reference r kat was not used to int erpret this result as normal/abnormal . [facility] CenterWpgvvdjVLHDJCVNFJ8056-26-10 13:03:00 Test Item Value Reference Range Interpretation Comments Microcyte (test code = 1+ *ABN*(09/19/15 Microcyte) 7:03 AM) [facility] CenterUlijrplOHOVSVZLPP9366-19-94 13:03:00 Test Item Value Reference Range Interpretation Comments Basophils # (test code 0.1 See_Comment [Aut omated message] The = Basophils #) system which generated this result tra nsmitted reference range : <=0.2. The reference r kat was not used to int erpret this result as normal/abnormal . [facility] CenterRacajhhNUWRVUVGTY9190-30-09 13:03:00 Test Item Value Reference Range Interpretation Comments Monocytes (test code = Monocytes) 10.4 2.0-12.0 [facility] CenterAqnktjrEAIWVAYPYK2333-52-56 13:03:00 Test Item Value Reference Range Interpretation Comments Lymphocytes (test code = Lymphocytes) 35.3 20.0-40.0 [facility] CenterXkbnyvaSWZNWMTATL1683-67-37 13:03:00 Test Item Value Reference Range Interpretation Comments Segs (test code = Segs) 50.8 45.0-75.0 [facility] CenterSasyatsCGFALEMMCS4479-91-87 13:03:00 Test Item Value Reference Range Interpretation Comments MCHC (test code = MCHC) 30.5 32.0-36.0 [facility] CenterVospfbePMAAYPHAZQ3277-14-50 13:03:00 Test Item Value Reference Range Interpretation Comments Platelet (test code = Platelet) 175 133-450 [facility] CenterDiwwyzbNTUVOUGUFU4953-33-21 13:03:00 Test Item Value Reference Range Interpretation Comments RDW (test code = RDW) 17.1 11.5-14.5 [facility] CenterWdxjsquBDQEALNMXW1534-13-34 13:03:00 Test Item Value Reference Range Interpretation Comments MCV (test code = MCV) 78.4 80.0-98.0 [facility] CenterQdbeqdkIBEPFZSNRM4837-78-47 13:03:00 Test Item Value Reference Range Interpretation Comments MCH (test code = MCH) 24.0 pg 27.0-31.0 [facility] CenterRkqaieuLEAAWEDFSR7179-53-68 13:03:00 Test Item Value Reference Range Interpretation Comments RBC (test code = RBC) 5.15 4.20-5.40 [facility] CenterIpoqvxqBECTBVOVEC9663-89-99 13:03:00 Test Item Value Reference Range Interpretation Comments Hct (test code = Hct) 40.4 36.0-48.0 [facility] CenterDtqqferJIFJZSVUJQ5127-31-21 13:03:00 Test Item Value Reference Range Interpretation Comments WBC (test code = WBC) 6.5 3.7-10.4 [facility] CenterWtephvcPRZSMLUUDC5280-35-17 13:03:00 Test Item Value Reference Range Interpretation Comments MPV (test code = MPV) 10.2 7.4-10.4 [facility] CenterXwnksgrAUVGOODDNM8794-02-22 13:03:00 Test Item Value Reference Range Interpretation Comments Hgb (test code = Hgb) 12.3 12.0-16.0 [facility]2016-01-21 13:03:00 Test Item Value Reference Range Interpretation Comments Magnesium Lvl (test code = Magnesium 1.9 1.8-2.4 Lvl) [facility]2016-01-21 13:03:00 Test Item Value Reference Range Interpretation Comments eGFR (test code = eGFR) 127 [facility]2016-01-21 13:03:00 Test Item Value Reference Range Interpretation Comments Creatinine Lvl (test code = Creatinine 0.60 0.50-1.40 Lvl) [facility]2016-01-21 13:03:00 Test Item Value Reference Range Interpretation Comments Glucose Lvl (test code = Glucose Lvl) 82 70-99 [facility]2016-01-21 13:03:00 Test Item Value Reference Range Interpretation Comments BUN (test code = BUN) 7 7-22 [facility]2016-01-21 13:03:00 Test Item Value Reference Range Interpretation Comments Potassium Lvl (test code = Potassium 4.1 3.5-5.1 Lvl) [facility]2016-01-21 13:03:00 Test Item Value Reference Range Interpretation Comments Sodium Lvl (test code = Sodium Lvl) 141 135-145 [facility]2016-01-21 13:03:00 Test Item Value Reference Range Interpretation Comments Chloride Lvl (test code = Chloride Lvl) 108 95-109 [facility]2016-01-21 13:03:00 Test Item Value Reference Range Interpretation Comments CO2 (test code = CO2) 20 24-32 [facility]2016-01-21 13:03:00 Test Item Value Reference Range Interpretation Comments Calcium Lvl (test code = Calcium Lvl) 8.9 8.5-10.5 [facility]2016-01-21 13:03:00 Test Item Value Reference Range Interpretation Comments AGAP (test code = AGAP) 17.1 10.0-20.0 [facility] CenterOadtvtdULAIIPOTGO2857-56-71 13:03:00 Test Item Value Reference Range Interpretation Comments Lymphocytes # (test code = Lymphocytes 2.3 1.0-5.5 #) [facility] CenterYjtnlqqHVYLGOGILO6259-78-66 13:03:00 Test Item Value Reference Range Interpretation Comments Basophils (test code = 1.0 See_Comment [Aut omated message] The Basophils) system which ge nerated this result tra nsmitted reference range : <=1.0. The reference r kat was not used to int erpret this result as normal/abnormal . [facility] CenterSyznktuPDXJHAPUYC0199-24-63 13:03:00 Test Item Value Reference Range Interpretation Comments Segs-Bands # (test code = Segs-Bands #) 3.3 1.5-8.1 [facility] CenterZhjsumcMSBWIVIJWN1645-23-91 13:03:00 Test Item Value Reference Range Interpretation Comments Eosinophils (test code = 2.5 See_Comment [A utomated message] The Eosinophils) system which ge nerated this result tra nsmitted reference range : <=4.0. The reference r kat was not used to int erpret this result as normal/abnormal . [facility] CenterFnrbkjqHVPJZNBXBU5777-53-94 13:03:00 Test Item Value Reference Range Interpretation Comments Eosinophils # (test code 0.2 See_Comment [A utomated message] The = Eosinophils #) system whic h generated this result tra nsmitted reference range : <=0.5. The reference r kat was not used to int erpret this result as normal/abnormal . [facility] CenterGtrulxvDQHNKNRPOL7977-06-13 13:03:00 Test Item Value Reference Range Interpretation Comments Monocytes # (test code 0.7 See_Comment [Aut omated message] The = Monocytes #) system which generated this result tra nsmitted reference range : <=0.8. The reference r kat was not used to int erpret this result as normal/abnormal . [facility] CenterGtqdwobQADZIYVYJI1545-70-39 13:03:00 Test Item Value Reference Range Interpretation Comments Microcyte (test code = 1+ *ABN*(09/19/15 Microcyte) 7:03 AM) [facility] CenterSsxpfdfWAAFAYWOXW6214-70-62 13:03:00 Test Item Value Reference Range Interpretation Comments Basophils # (test code 0.1 See_Comment [Aut omated message] The = Basophils #) system which generated this result tra nsmitted reference range : <=0.2. The reference r kat was not used to int erpret this result as normal/abnormal . [facility] CenterLehjsexNBZVKWYITA2809-67-55 13:03:00 Test Item Value Reference Range Interpretation Comments Monocytes (test code = Monocytes) 10.4 2.0-12.0 [facility] CenterIjkgehbFUSMCWMAKD0631-58-76 13:03:00 Test Item Value Reference Range Interpretation Comments Lymphocytes (test code = Lymphocytes) 35.3 20.0-40.0 [facility] CenterHcjxddtZKFPFVHWUF9255-96-58 13:03:00 Test Item Value Reference Range Interpretation Comments Segs (test code = Segs) 50.8 45.0-75.0 [facility] CenterTfjzxvsFGNCOKMLTO0997-95-05 13:03:00 Test Item Value Reference Range Interpretation Comments MCHC (test code = MCHC) 30.5 32.0-36.0 [facility] CenterDyvdkfpHLOGRMXFYX7840-05-68 13:03:00 Test Item Value Reference Range Interpretation Comments Platelet (test code = Platelet) 175 133-450 [facility] CenterUeczwlnAXVVVDAWGQ6007-87-13 13:03:00 Test Item Value Reference Range Interpretation Comments RDW (test code = RDW) 17.1 11.5-14.5 [facility] CenterSmiwkbhRWCJDLXVDP9543-18-56 13:03:00 Test Item Value Reference Range Interpretation Comments MCV (test code = MCV) 78.4 80.0-98.0 [facility] CenterGijefciRAJNWMZFON5815-67-58 13:03:00 Test Item Value Reference Range Interpretation Comments MCH (test code = MCH) 24.0 pg 27.0-31.0 [facility] CenterIvrfkuaERSIWKDTDX7640-87-24 13:03:00 Test Item Value Reference Range Interpretation Comments RBC (test code = RBC) 5.15 4.20-5.40 [facility] CenterMnssoxuBGXUVCIRLI1643-65-41 13:03:00 Test Item Value Reference Range Interpretation Comments Hct (test code = Hct) 40.4 36.0-48.0 [facility] CenterDgdnmjjNLGVSPTPCR9612-19-32 13:03:00 Test Item Value Reference Range Interpretation Comments WBC (test code = WBC) 6.5 3.7-10.4 [facility] CenterWnurnpiGHXLYJKPPO2511-94-80 13:03:00 Test Item Value Reference Range Interpretation Comments MPV (test code = MPV) 10.2 7.4-10.4 [facility] CenterJodafydKFTOATNUTM4194-79-88 13:03:00 Test Item Value Reference Range Interpretation Comments Hgb (test code = Hgb) 12.3 12.0-16.0 [facility]2016-01-21 13:03:00 Test Item Value Reference Range Interpretation Comments Magnesium Lvl (test code = Magnesium 1.9 1.8-2.4 Lvl) [facility]2016-01-21 13:03:00 Test Item Value Reference Range Interpretation Comments eGFR (test code = eGFR) 127 [facility]2016-01-21 13:03:00 Test Item Value Reference Range Interpretation Comments Creatinine Lvl (test code = Creatinine 0.60 0.50-1.40 Lvl) [facility]2016-01-21 13:03:00 Test Item Value Reference Range Interpretation Comments Glucose Lvl (test code = Glucose Lvl) 82 70-99 [facility]2016-01-21 13:03:00 Test Item Value Reference Range Interpretation Comments BUN (test code = BUN) 7 7-22 [facility]2016-01-21 13:03:00 Test Item Value Reference Range Interpretation Comments Potassium Lvl (test code = Potassium 4.1 3.5-5.1 Lvl) [facility]2016-01-21 13:03:00 Test Item Value Reference Range Interpretation Comments Sodium Lvl (test code = Sodium Lvl) 141 135-145 [facility]2016-01-21 13:03:00 Test Item Value Reference Range Interpretation Comments Chloride Lvl (test code = Chloride Lvl) 108 95-109 [facility]2016-01-21 13:03:00 Test Item Value Reference Range Interpretation Comments CO2 (test code = CO2) 20 24-32 [facility]2016-01-21 13:03:00 Test Item Value Reference Range Interpretation Comments Calcium Lvl (test code = Calcium Lvl) 8.9 8.5-10.5 [facility]2016-01-21 13:03:00 Test Item Value Reference Range Interpretation Comments AGAP (test code = AGAP) 17.1 10.0-20.0 [facility] CenterPveaaobQEJCDIHZWE6766-07-81 13:03:00 Test Item Value Reference Range Interpretation Comments Lymphocytes # (test code = Lymphocytes 2.3 1.0-5.5 #) [facility] CenterAdpcrlqQOPEYQOCIT6883-09-43 13:03:00 Test Item Value Reference Range Interpretation Comments Basophils (test code = 1.0 See_Comment [Aut omated message] The Basophils) system which ge nerated this result tra nsmitted reference range : <=1.0. The reference r kat was not used to int erpret this result as normal/abnormal . [facility] CenterVfasqvvASBTWVDFVH9725-19-53 13:03:00 Test Item Value Reference Range Interpretation Comments Segs-Bands # (test code = Segs-Bands #) 3.3 1.5-8.1 [facility] CenterUbajyrdIDPFAPAITC1660-43-96 13:03:00 Test Item Value Reference Range Interpretation Comments Eosinophils (test code = 2.5 See_Comment [A utomated message] The Eosinophils) system which ge nerated this result tra nsmitted reference range : <=4.0. The reference r kat was not used to int erpret this result as normal/abnormal . [facility] CenterYnsmefkGLNHGQDEJV3007-26-79 13:03:00 Test Item Value Reference Range Interpretation Comments Eosinophils # (test code 0.2 See_Comment [A utomated message] The = Eosinophils #) system whic h generated this result tra nsmitted reference range : <=0.5. The reference r kat was not used to int erpret this result as normal/abnormal . [facility] Cent[id number] 13:03:00 Test Item Value Reference Range Interpretation Comments Monocytes # (test code 0.7 See_Comment [Aut omated message] The = Monocytes #) system which generated this result tra nsmitted reference range : <=0.8. The reference r kat was not used to int erpret this result as normal/abnormal . [facility] CenterOuumefxIQYTOWPPZQ7396-60-21 13:03:00 Test Item Value Reference Range Interpretation Comments Microcyte (test code = 1+ *ABN*(09/19/15 Microcyte) 7:03 AM) [facility] CenterLrmgjoiLWSBKTCKVI6118-90-27 13:03:00 Test Item Value Reference Range Interpretation Comments Basophils # (test code 0.1 See_Comment [Aut omated message] The = Basophils #) system which generated this result tra nsmitted reference range : <=0.2. The reference r kat was not used to int erpret this result as normal/abnormal . [facility] CenterYqqfiqbQVNUALBTXU0956-69-74 13:03:00 Test Item Value Reference Range Interpretation Comments Monocytes (test code = Monocytes) 10.4 2.0-12.0 [facility] CenterHdkmzopFISKQLBIAZ5478-41-76 13:03:00 Test Item Value Reference Range Interpretation Comments Lymphocytes (test code = Lymphocytes) 35.3 20.0-40.0 [facility] CenterDjzykwvUUXHZGKDPS9714-73-55 13:03:00 Test Item Value Reference Range Interpretation Comments Segs (test code = Segs) 50.8 45.0-75.0 [facility] CenterBglqxwgGFAFOENPTT2702-78-26 13:03:00 Test Item Value Reference Range Interpretation Comments MCHC (test code = MCHC) 30.5 32.0-36.0 [facility] CenterMcrkdpsGZXJIXABPT0475-32-16 13:03:00 Test Item Value Reference Range Interpretation Comments Platelet (test code = Platelet) 175 133-450 [facility] CenterIitpvcjUHCTEXFCFM7933-00-66 13:03:00 Test Item Value Reference Range Interpretation Comments RDW (test code = RDW) 17.1 11.5-14.5 [facility] CenterNfmbumhLRDRBJOTZO7025-57-83 13:03:00 Test Item Value Reference Range Interpretation Comments MCV (test code = MCV) 78.4 80.0-98.0 [facility] CenterVafdxzdVFBAOXNZET3738-75-96 13:03:00 Test Item Value Reference Range Interpretation Comments MCH (test code = MCH) 24.0 pg 27.0-31.0 [facility] CenterFemsptwQUSRXSSYOP3373-77-32 13:03:00 Test Item Value Reference Range Interpretation Comments RBC (test code = RBC) 5.15 4.20-5.40 [facility] CenterPbusfafTFZOTPNIZL6362-67-87 13:03:00 Test Item Value Reference Range Interpretation Comments Hct (test code = Hct) 40.4 36.0-48.0 [facility] CenterLumjdpdNJSRWKCUGW3350-95-68 13:03:00 Test Item Value Reference Range Interpretation Comments WBC (test code = WBC) 6.5 3.7-10.4 [facility] CenterQicjpdkOCEYOMYDBY5644-64-47 13:03:00 Test Item Value Reference Range Interpretation Comments MPV (test code = MPV) 10.2 7.4-10.4 [facility] CenterOdrmdtfJQMBOZAXMB7953-53-39 13:03:00 Test Item Value Reference Range Interpretation Comments Hgb (test code = Hgb) 12.3 12.0-16.0 [facility]2016-01-21 13:03:00 Test Item Value Reference Range Interpretation Comments Magnesium Lvl (test code = Magnesium 1.9 1.8-2.4 Lvl) [facility]2016-01-21 13:03:00 Test Item Value Reference Range Interpretation Comments eGFR (test code = eGFR) 127 [facility]2016-01-21 13:03:00 Test Item Value Reference Range Interpretation Comments Creatinine Lvl (test code = Creatinine 0.60 0.50-1.40 Lvl) [facility]2016-01-21 13:03:00 Test Item Value Reference Range Interpretation Comments Glucose Lvl (test code = Glucose Lvl) 82 70-99 [facility]2016-01-21 13:03:00 Test Item Value Reference Range Interpretation Comments BUN (test code = BUN) 7 7-22 [facility]2016-01-21 13:03:00 Test Item Value Reference Range Interpretation Comments Potassium Lvl (test code = Potassium 4.1 3.5-5.1 Lvl) [facility]2016-01-21 13:03:00 Test Item Value Reference Range Interpretation Comments Sodium Lvl (test code = Sodium Lvl) 141 135-145 [facility]2016-01-21 13:03:00 Test Item Value Reference Range Interpretation Comments Chloride Lvl (test code = Chloride Lvl) 108 95-109 [facility]2016-01-21 13:03:00 Test Item Value Reference Range Interpretation Comments CO2 (test code = CO2) 20 24-32 [facility]2016-01-21 13:03:00 Test Item Value Reference Range Interpretation Comments Calcium Lvl (test code = Calcium Lvl) 8.9 8.5-10.5 [facility]2016-01-21 13:03:00 Test Item Value Reference Range Interpretation Comments AGAP (test code = AGAP) 17.1 10.0-20.0 [facility] CenterQjbspaeCTGIMPXPRF9658-24-54 13:03:00 Test Item Value Reference Range Interpretation Comments Lymphocytes # (test code = Lymphocytes 2.3 1.0-5.5 #) [facility] CenterDceljioRXJXJGGEIB7967-17-31 13:03:00 Test Item Value Reference Range Interpretation Comments Basophils (test code = 1.0 See_Comment [Aut omated message] The Basophils) system which ge nerated this result tra nsmitted reference range : <=1.0. The reference r kat was not used to int erpret this result as normal/abnormal . [facility] CenterJkroiqhMXASDZZHIE6299-64-74 13:03:00 Test Item Value Reference Range Interpretation Comments Segs-Bands # (test code = Segs-Bands #) 3.3 1.5-8.1 [facility] CenterPwknzeiPYJNJDAKZE0109-01-33 13:03:00 Test Item Value Reference Range Interpretation Comments Eosinophils (test code = 2.5 See_Comment [A utomated message] The Eosinophils) system which ge nerated this result tra nsmitted reference range : <=4.0. The reference r kat was not used to int erpret this result as normal/abnormal . [facility] CenterYopqxtySVRCNPBAWH7733-58-40 13:03:00 Test Item Value Reference Range Interpretation Comments Eosinophils # (test code 0.2 See_Comment [A utomated message] The = Eosinophils #) system whic h generated this result tra nsmitted reference range : <=0.5. The reference r kat was not used to int erpret this result as normal/abnormal . [facility] CenterZrddcjrCHXLORHILW5946-39-15 13:03:00 Test Item Value Reference Range Interpretation Comments Monocytes # (test code 0.7 See_Comment [Aut omated message] The = Monocytes #) system which generated this result tra nsmitted reference range : <=0.8. The reference r kat was not used to int erpret this result as normal/abnormal . [facility] CenterYsdnlkjBMNKEXKZDK1392-59-88 13:03:00 Test Item Value Reference Range Interpretation Comments Microcyte (test code = 1+ *ABN*(09/19/15 Microcyte) 7:03 AM) [facility] CenterUwqgzhuAEXZIQKTXD5835-18-04 13:03:00 Test Item Value Reference Range Interpretation Comments Basophils # (test code 0.1 See_Comment [Aut omated message] The = Basophils #) system which generated this result tra nsmitted reference range : <=0.2. The reference r kat was not used to int erpret this result as normal/abnormal . [facility] CenterLcrtjqcZFTDARQYEW6729-13-48 13:03:00 Test Item Value Reference Range Interpretation Comments Monocytes (test code = Monocytes) 10.4 2.0-12.0 [facility] CenterQnznttxHZTEGNWTVE1066-96-58 13:03:00 Test Item Value Reference Range Interpretation Comments Lymphocytes (test code = Lymphocytes) 35.3 20.0-40.0 [facility] CenterYkeqwslUGLFSKZCMM2936-36-97 13:03:00 Test Item Value Reference Range Interpretation Comments Segs (test code = Segs) 50.8 45.0-75.0 [facility] CenterZgwmpguWBUUSHHUTU3402-75-81 13:03:00 Test Item Value Reference Range Interpretation Comments MCHC (test code = MCHC) 30.5 32.0-36.0 [facility] CenterCwvucyqAJPFDWPYNG9575-58-28 13:03:00 Test Item Value Reference Range Interpretation Comments Platelet (test code = Platelet) 175 133-450 [facility] CenterAkxigbvTQBKZTROBN0351-63-43 13:03:00 Test Item Value Reference Range Interpretation Comments RDW (test code = RDW) 17.1 11.5-14.5 [facility] CenterNgodcpjXOAUSZRLIS8816-99-55 13:03:00 Test Item Value Reference Range Interpretation Comments MCV (test code = MCV) 78.4 80.0-98.0 [facility] CenterCeuedkjSTORSPVTXZ9479-06-93 13:03:00 Test Item Value Reference Range Interpretation Comments MCH (test code = MCH) 24.0 pg 27.0-31.0 [facility] CenterQgwfgilXIMTQLMGZS3260-54-01 13:03:00 Test Item Value Reference Range Interpretation Comments RBC (test code = RBC) 5.15 4.20-5.40 [facility] CenterRpyzbvsXEQMGAWGXM3510-68-41 13:03:00 Test Item Value Reference Range Interpretation Comments Hct (test code = Hct) 40.4 36.0-48.0 [facility] CenterXerkdsjHVBNAZPQHS2761-29-94 13:03:00 Test Item Value Reference Range Interpretation Comments WBC (test code = WBC) 6.5 3.7-10.4 [facility] CenterIxacajzOHSXXXLTCF4036-42-37 13:03:00 Test Item Value Reference Range Interpretation Comments MPV (test code = MPV) 10.2 7.4-10.4 [facility] CenterEduwngeYKZSEEHAQR4969-73-04 13:03:00 Test Item Value Reference Range Interpretation Comments Hgb (test code = Hgb) 12.3 12.0-16.0 [facility]2016-01-21 13:03:00 Test Item Value Reference Range Interpretation Comments Magnesium Lvl (test code = Magnesium 1.9 1.8-2.4 Lvl) [facility]2016-01-21 13:03:00 Test Item Value Reference Range Interpretation Comments eGFR (test code = eGFR) 127 [facility]2016-01-21 13:03:00 Test Item Value Reference Range Interpretation Comments Creatinine Lvl (test code = Creatinine 0.60 0.50-1.40 Lvl) [facility]2016-01-21 13:03:00 Test Item Value Reference Range Interpretation Comments Glucose Lvl (test code = Glucose Lvl) 82 70-99 [facility]2016-01-21 13:03:00 Test Item Value Reference Range Interpretation Comments BUN (test code = BUN) 7 7-22 [facility]2016-01-21 13:03:00 Test Item Value Reference Range Interpretation Comments Potassium Lvl (test code = Potassium 4.1 3.5-5.1 Lvl) [facility]2016-01-21 13:03:00 Test Item Value Reference Range Interpretation Comments Sodium Lvl (test code = Sodium Lvl) 141 135-145 [facility]2016-01-21 13:03:00 Test Item Value Reference Range Interpretation Comments Chloride Lvl (test code = Chloride Lvl) 108 95-109 [facility]2016-01-21 13:03:00 Test Item Value Reference Range Interpretation Comments CO2 (test code = CO2) 20 24-32 [facility]2016-01-21 13:03:00 Test Item Value Reference Range Interpretation Comments Calcium Lvl (test code = Calcium Lvl) 8.9 8.5-10.5 [facility]2016-01-21 13:03:00 Test Item Value Reference Range Interpretation Comments AGAP (test code = AGAP) 17.1 10.0-20.0 [facility] CenterIohtrunAPCPBMQLTY8340-32-96 13:03:00 Test Item Value Reference Range Interpretation Comments Lymphocytes # (test code = Lymphocytes 2.3 1.0-5.5 #) [facility] CenterGwrjnxmDLEVKNCOSY5611-55-18 13:03:00 Test Item Value Reference Range Interpretation Comments Basophils (test code = 1.0 See_Comment [Aut omated message] The Basophils) system which ge nerated this result tra nsmitted reference range : <=1.0. The reference r kat was not used to int erpret this result as normal/abnormal . [facility] CenterHrwdidyANLASBBJYY7906-62-04 13:03:00 Test Item Value Reference Range Interpretation Comments Segs-Bands # (test code = Segs-Bands #) 3.3 1.5-8.1 [facility] CenterM[id number] 13:03:00 Test Item Value Reference Range Interpretation Comments Eosinophils (test code = 2.5 See_Comment [A utomated message] The Eosinophils) system which ge nerated this result tra nsmitted reference range : <=4.0. The reference r kat was not used to int erpret this result as normal/abnormal . [facility] CenterNyjqijpWGMFELYUNI0194-07-42 13:03:00 Test Item Value Reference Range Interpretation Comments Eosinophils # (test code 0.2 See_Comment [A utomated message] The = Eosinophils #) system whic h generated this result tra nsmitted reference range : <=0.5. The reference r kat was not used to int erpret this result as normal/abnormal . [facility] CenterHejajsnCNMQILFELX7349-29-07 13:03:00 Test Item Value Reference Range Interpretation Comments Monocytes # (test code 0.7 See_Comment [Aut omated message] The = Monocytes #) system which generated this result tra nsmitted reference range : <=0.8. The reference r kat was not used to int erpret this result as normal/abnormal . [facility] CenterNowuziqEOZFDBFJGJ1135-42-17 13:03:00 Test Item Value Reference Range Interpretation Comments Microcyte (test code = 1+ *ABN*(09/19/15 Microcyte) 7:03 AM) [facility] CenterKthchphUKYZXBFDBA7235-82-62 13:03:00 Test Item Value Reference Range Interpretation Comments Basophils # (test code 0.1 See_Comment [Aut omated message] The = Basophils #) system which generated this result tra nsmitted reference range : <=0.2. The reference r kat was not used to int erpret this result as normal/abnormal . [facility] CenterCirsdcdNHYFDKYCVB4946-43-69 13:03:00 Test Item Value Reference Range Interpretation Comments Monocytes (test code = Monocytes) 10.4 2.0-12.0 [facility] CenterNiulxqoIFLSYFZGBA9296-87-65 13:03:00 Test Item Value Reference Range Interpretation Comments Lymphocytes (test code = Lymphocytes) 35.3 20.0-40.0 [facility] CenterBdhcddxEZRSCNHMJM9644-54-11 13:03:00 Test Item Value Reference Range Interpretation Comments Segs (test code = Segs) 50.8 45.0-75.0 [facility] CenterPabztrjCOHXHKBPLS1665-81-73 13:03:00 Test Item Value Reference Range Interpretation Comments MCHC (test code = MCHC) 30.5 32.0-36.0 [facility] CenterKqfahojBSZKZRGOFG4687-09-57 13:03:00 Test Item Value Reference Range Interpretation Comments Platelet (test code = Platelet) 175 133-450 [facility] CenterNqogwasNMKURASDQQ8533-42-94 13:03:00 Test Item Value Reference Range Interpretation Comments RDW (test code = RDW) 17.1 11.5-14.5 [facility] CenterWgvayqfZVAOERUUHU6411-86-48 13:03:00 Test Item Value Reference Range Interpretation Comments MCV (test code = MCV) 78.4 80.0-98.0 [facility] CenterMlzabbtTGNZLHEEIG3962-65-94 13:03:00 Test Item Value Reference Range Interpretation Comments MCH (test code = MCH) 24.0 pg 27.0-31.0 [facility] CenterCygbwbzSFECSVKVKJ4706-03-60 13:03:00 Test Item Value Reference Range Interpretation Comments RBC (test code = RBC) 5.15 4.20-5.40 [facility] CenterKejoeekSCDEFQJKOU7591-33-26 13:03:00 Test Item Value Reference Range Interpretation Comments Hct (test code = Hct) 40.4 36.0-48.0 [facility] CenterDqvzgetKZLWBRZXGO9353-88-68 13:03:00 Test Item Value Reference Range Interpretation Comments WBC (test code = WBC) 6.5 3.7-10.4 [facility] CenterFgnkoseXLORKWRVZJ6174-23-57 13:03:00 Test Item Value Reference Range Interpretation Comments MPV (test code = MPV) 10.2 7.4-10.4 [facility] CenterFuquamfNLIIHVDELG2059-63-99 13:03:00 Test Item Value Reference Range Interpretation Comments Hgb (test code = Hgb) 12.3 12.0-16.0 [facility]2016-01-21 13:03:00 Test Item Value Reference Range Interpretation Comments Magnesium Lvl (test code = Magnesium 1.9 1.8-2.4 Lvl) [facility]2016-01-21 13:03:00 Test Item Value Reference Range Interpretation Comments eGFR (test code = eGFR) 127 [facility]2016-01-21 13:03:00 Test Item Value Reference Range Interpretation Comments Creatinine Lvl (test code = Creatinine 0.60 0.50-1.40 Lvl) [facility]2016-01-21 13:03:00 Test Item Value Reference Range Interpretation Comments Glucose Lvl (test code = Glucose Lvl) 82 70-99 [facility]2016-01-21 13:03:00 Test Item Value Reference Range Interpretation Comments BUN (test code = BUN) 7 7-22 [facility]2016-01-21 13:03:00 Test Item Value Reference Range Interpretation Comments Potassium Lvl (test code = Potassium 4.1 3.5-5.1 Lvl) [facility]2016-01-21 13:03:00 Test Item Value Reference Range Interpretation Comments Sodium Lvl (test code = Sodium Lvl) 141 135-145 [facility]2016-01-21 13:03:00 Test Item Value Reference Range Interpretation Comments Chloride Lvl (test code = Chloride Lvl) 108 95-109 [facility]2016-01-21 13:03:00 Test Item Value Reference Range Interpretation Comments CO2 (test code = CO2) 20 24-32 [facility]2016-01-21 13:03:00 Test Item Value Reference Range Interpretation Comments Calcium Lvl (test code = Calcium Lvl) 8.9 8.5-10.5 [facility]2016-01-21 13:03:00 Test Item Value Reference Range Interpretation Comments AGAP (test code = AGAP) 17.1 10.0-20.0 [facility] CenterTboxovdYSVAAVCXOO0912-21-61 13:03:00 Test Item Value Reference Range Interpretation Comments Lymphocytes # (test code = Lymphocytes 2.3 1.0-5.5 #) [facility] CenterXsntnbiLRRLUJOIHC3445-22-41 13:03:00 Test Item Value Reference Range Interpretation Comments Basophils (test code = 1.0 See_Comment [Aut omated message] The Basophils) system which ge nerated this result tra nsmitted reference range : <=1.0. The reference r kat was not used to int erpret this result as normal/abnormal . [facility] CenterFkqztqfZMOYZKHSTF3067-99-55 13:03:00 Test Item Value Reference Range Interpretation Comments Segs-Bands # (test code = Segs-Bands #) 3.3 1.5-8.1 [facility] CenterAexsoheEBOXPHZUTN2962-50-14 13:03:00 Test Item Value Reference Range Interpretation Comments Eosinophils (test code = 2.5 See_Comment [A utomated message] The Eosinophils) system which ge nerated this result tra nsmitted reference range : <=4.0. The reference r kat was not used to int erpret this result as normal/abnormal . [facility] CenterRwrdqxrKZSOOKJYCU9175-12-35 13:03:00 Test Item Value Reference Range Interpretation Comments Eosinophils # (test code 0.2 See_Comment [A utomated message] The = Eosinophils #) system whic h generated this result tra nsmitted reference range : <=0.5. The reference r kat was not used to int erpret this result as normal/abnormal . [facility] CenterFbaxtffYDKLDPIQVR8765-72-61 13:03:00 Test Item Value Reference Range Interpretation Comments Monocytes # (test code 0.7 See_Comment [Aut omated message] The = Monocytes #) system which generated this result tra nsmitted reference range : <=0.8. The reference r kat was not used to int erpret this result as normal/abnormal . [facility] CenterKvaaebfNMGLCNYZNT6703-86-91 13:03:00 Test Item Value Reference Range Interpretation Comments Microcyte (test code = 1+ *ABN*(09/19/15 Microcyte) 7:03 AM) [facility] CenterUmewamnCCBCUMOIXY4940-92-32 13:03:00 Test Item Value Reference Range Interpretation Comments Basophils # (test code 0.1 See_Comment [Aut omated message] The = Basophils #) system which generated this result tra nsmitted reference range : <=0.2. The reference r kat was not used to int erpret this result as normal/abnormal . [facility] CenterJpkdttsYEVPMATSKF1222-66-77 13:03:00 Test Item Value Reference Range Interpretation Comments Monocytes (test code = Monocytes) 10.4 2.0-12.0 [facility]2016-01-21 13:03:00 Test Item Value Reference Range Interpretation Comments Magnesium Lvl (test code = Magnesium 1.9 1.8-2.4 Lvl) [facility]2016-01-21 13:03:00 Test Item Value Reference Range Interpretation Comments eGFR (test code = eGFR) 127 [facility]2016-01-21 13:03:00 Test Item Value Reference Range Interpretation Comments Creatinine Lvl (test code = Creatinine 0.60 0.50-1.40 Lvl) [facility]2016-01-21 13:03:00 Test Item Value Reference Range Interpretation Comments Glucose Lvl (test code = Glucose Lvl) 82 70-99 [facility]2016-01-21 13:03:00 Test Item Value Reference Range Interpretation Comments BUN (test code = BUN) 7 7-22 [facility]2016-01-21 13:03:00 Test Item Value Reference Range Interpretation Comments Potassium Lvl (test code = Potassium 4.1 3.5-5.1 Lvl) [facility]2016-01-21 13:03:00 Test Item Value Reference Range Interpretation Comments Sodium Lvl (test code = Sodium Lvl) 141 135-145 [facility]2016-01-21 13:03:00 Test Item Value Reference Range Interpretation Comments Chloride Lvl (test code = Chloride Lvl) 108 95-109 [facility] CenterZazdodaJBWZCZJBHM8850-05-70 13:03:00 Test Item Value Reference Range Interpretation Comments Lymphocytes (test code = Lymphocytes) 35.3 20.0-40.0 [facility]2016-01-21 13:03:00 Test Item Value Reference Range Interpretation Comments CO2 (test code = CO2) 20 24-32 [facility]2016-01-21 13:03:00 Test Item Value Reference Range Interpretation Comments Calcium Lvl (test code = Calcium Lvl) 8.9 8.5-10.5 [facility]2016-01-21 13:03:00 Test Item Value Reference Range Interpretation Comments AGAP (test code = AGAP) 17.1 10.0-20.0 [facility] CenterKahdwqaJGAOVQFGBS8788-32-93 13:03:00 Test Item Value Reference Range Interpretation Comments Lymphocytes # (test code = Lymphocytes 2.3 1.0-5.5 #) [facility] CenterJfbvxtkJRNQGXOXHX5814-94-36 13:03:00 Test Item Value Reference Range Interpretation Comments Basophils (test code = 1.0 See_Comment [Aut omated message] The Basophils) system which ge nerated this result tra nsmitted reference range : <=1.0. The reference r kat was not used to int erpret this result as normal/abnormal . [facility] CenterBkxykjzIZAIGYFTNT9886-61-93 13:03:00 Test Item Value Reference Range Interpretation Comments Segs-Bands # (test code = Segs-Bands #) 3.3 1.5-8.1 [facility] CenterSckeepgRSFQIEEPUU3720-41-80 13:03:00 Test Item Value Reference Range Interpretation Comments Eosinophils (test code = 2.5 See_Comment [A utomated message] The Eosinophils) system which ge nerated this result tra nsmitted reference range : <=4.0. The reference r kat was not used to int erpret this result as normal/abnormal . [facility] CenterIpgvxqbFWRGXINABI5709-52-10 13:03:00 Test Item Value Reference Range Interpretation Comments Eosinophils # (test code 0.2 See_Comment [A utomated message] The = Eosinophils #) system whic h generated this result tra nsmitted reference range : <=0.5. The reference r kat was not used to int erpret this result as normal/abnormal . [facility] CenterRzchjurQZAJBBXMQN5225-93-41 13:03:00 Test Item Value Reference Range Interpretation Comments Monocytes # (test code 0.7 See_Comment [Aut omated message] The = Monocytes #) system which generated this result tra nsmitted reference range : <=0.8. The reference r kat was not used to int erpret this result as normal/abnormal . [facility] CenterRelrjdjVZVNAHUYIS2617-64-46 13:03:00 Test Item Value Reference Range Interpretation Comments Microcyte (test code = 1+ *ABN*(09/19/15 Microcyte) 7:03 AM) [facility] CenterGqizporQHAYEIAOCN2809-66-55 13:03:00 Test Item Value Reference Range Interpretation Comments Segs (test code = Segs) 50.8 45.0-75.0 [facility] CenterStnrunqABURENXJSK5881-48-03 13:03:00 Test Item Value Reference Range Interpretation Comments Basophils # (test code 0.1 See_Comment [Aut omated message] The = Basophils #) system which generated this result tra nsmitted reference range : <=0.2. The reference r kat was not used to int erpret this result as normal/abnormal . [facility] CenterNzvuwbkYMUDCFQFMB4948-89-93 13:03:00 Test Item Value Reference Range Interpretation Comments Monocytes (test code = Monocytes) 10.4 2.0-12.0 [facility] CenterVqoyirqFZOARUMCMN4903-06-58 13:03:00 Test Item Value Reference Range Interpretation Comments Lymphocytes (test code = Lymphocytes) 35.3 20.0-40.0 [facility] CenterSoyumkxUSWJNXYXQC2054-08-99 13:03:00 Test Item Value Reference Range Interpretation Comments Segs (test code = Segs) 50.8 45.0-75.0 [facility] CenterWqwhuqhIEXNIMINLV2271-93-99 13:03:00 Test Item Value Reference Range Interpretation Comments MCHC (test code = MCHC) 30.5 32.0-36.0 [facility] CenterAtspkniGPFIJHRYTR5973-82-32 13:03:00 Test Item Value Reference Range Interpretation Comments Platelet (test code = Platelet) 175 133-450 [facility] CenterHjxenpzQHYRJGKCPS3136-15-73 13:03:00 Test Item Value Reference Range Interpretation Comments RDW (test code = RDW) 17.1 11.5-14.5 [facility] CenterOaboveaQJBNFNSDLS2225-64-25 13:03:00 Test Item Value Reference Range Interpretation Comments MCV (test code = MCV) 78.4 80.0-98.0 [facility] CenterPginnfiPRPILDNVBV6015-04-05 13:03:00 Test Item Value Reference Range Interpretation Comments MCH (test code = MCH) 24.0 pg 27.0-31.0 [facility] CenterWuyngigRFEUQUDQBE3544-95-98 13:03:00 Test Item Value Reference Range Interpretation Comments RBC (test code = RBC) 5.15 4.20-5.40 [facility] CenterWekjskaEKLIYQWQYX2569-91-35 13:03:00 Test Item Value Reference Range Interpretation Comments MCHC (test code = MCHC) 30.5 32.0-36.0 [facility] CenterSjbidviKUQYEVZNUW1972-82-33 13:03:00 Test Item Value Reference Range Interpretation Comments Hct (test code = Hct) 40.4 36.0-48.0 [facility] CenterQqftnfdAVCIIHIXUZ2069-47-51 13:03:00 Test Item Value Reference Range Interpretation Comments WBC (test code = WBC) 6.5 3.7-10.4 [facility] CenterPnwwjraNMIKROOPCF5124-21-67 13:03:00 Test Item Value Reference Range Interpretation Comments MPV (test code = MPV) 10.2 7.4-10.4 [facility] CenterHnzlurbBRDYQWPMMQ2740-71-25 13:03:00 Test Item Value Reference Range Interpretation Comments Hgb (test code = Hgb) 12.3 12.0-16.0 [facility] CenterWlrudzmVITVYJSDBB2952-01-30 13:03:00 Test Item Value Reference Range Interpretation Comments Platelet (test code = Platelet) 175 133-450 [facility] CenterPbidfrmMMINBXJMHL5830-14-28 13:03:00 Test Item Value Reference Range Interpretation Comments RDW (test code = RDW) 17.1 11.5-14.5 [facility] CenterUbutcyzRYZHHERYWD5266-97-68 13:03:00 Test Item Value Reference Range Interpretation Comments MCV (test code = MCV) 78.4 80.0-98.0 [facility] CenterMclmicwYYPPTISJSF0967-21-25 13:03:00 Test Item Value Reference Range Interpretation Comments MCH (test code = MCH) 24.0 pg 27.0-31.0 [facility] CenterQxbeujvMSGMTIVLWA1842-14-70 13:03:00 Test Item Value Reference Range Interpretation Comments RBC (test code = RBC) 5.15 4.20-5.40 [facility] CenterPoknbycBLHOMRMQJJ5767-66-62 13:03:00 Test Item Value Reference Range Interpretation Comments Hct (test code = Hct) 40.4 36.0-48.0 [facility] CenterLplgughVXXXJLZENU8847-84-57 13:03:00 Test Item Value Reference Range Interpretation Comments WBC (test code = WBC) 6.5 3.7-10.4 [facility] CenterDlqrfceYQYREJCXFB5791-92-10 13:03:00 Test Item Value Reference Range Interpretation Comments MPV (test code = MPV) 10.2 7.4-10.4 [facility] CenterJijlytjSQZNGIBUKF7141-71-32 13:03:00 Test Item Value Reference Range Interpretation Comments Hgb (test code = Hgb) 12.3 12.0-16.0 [facility]2016-01-21 13:03:00 Test Item Value Reference Range Interpretation Comments Magnesium Lvl (test code = Magnesium 1.9 1.8-2.4 Lvl) [facility]2016-01-21 13:03:00 Test Item Value Reference Range Interpretation Comments eGFR (test code = eGFR) 127 [facility]2016-01-21 13:03:00 Test Item Value Reference Range Interpretation Comments Creatinine Lvl (test code = Creatinine 0.60 0.50-1.40 Lvl) [facility]2016-01-21 13:03:00 Test Item Value Reference Range Interpretation Comments Glucose Lvl (test code = Glucose Lvl) 82 70-99 [facility]2016-01-21 13:03:00 Test Item Value Reference Range Interpretation Comments BUN (test code = BUN) 7 7-22 [facility]2016-01-21 13:03:00 Test Item Value Reference Range Interpretation Comments Potassium Lvl (test code = Potassium 4.1 3.5-5.1 Lvl) [facility]2016-01-21 13:03:00 Test Item Value Reference Range Interpretation Comments Sodium Lvl (test code = Sodium Lvl) 141 135-145 [facility]2016-01-21 13:03:00 Test Item Value Reference Range Interpretation Comments Chloride Lvl (test code = Chloride Lvl) 108 95-109 [facility]2016-01-21 13:03:00 Test Item Value Reference Range Interpretation Comments CO2 (test code = CO2) 20 24-32 [facility]2016-01-21 13:03:00 Test Item Value Reference Range Interpretation Comments Calcium Lvl (test code = Calcium Lvl) 8.9 8.5-10.5 [facility]2016-01-21 13:03:00 Test Item Value Reference Range Interpretation Comments AGAP (test code = AGAP) 17.1 10.0-20.0 [facility] CenterKduwiaxLTNGCXJGEK7593-57-98 13:03:00 Test Item Value Reference Range Interpretation Comments Lymphocytes # (test code = Lymphocytes 2.3 1.0-5.5 #) [facility] CenterDicirivJQJMCBJFEK0927-78-84 13:03:00 Test Item Value Reference Range Interpretation Comments Basophils (test code = 1.0 See_Comment [Aut omated message] The Basophils) system which ge nerated this result tra nsmitted reference range : <=1.0. The reference r kat was not used to int erpret this result as normal/abnormal . [facility] CenterLygnykdNFPTXLXUZD9450-55-97 13:03:00 Test Item Value Reference Range Interpretation Comments Segs-Bands # (test code = Segs-Bands #) 3.3 1.5-8.1 [facility] CenterFkynrkkTDSLJOEYUI7989-87-62 13:03:00 Test Item Value Reference Range Interpretation Comments Eosinophils (test code = 2.5 See_Comment [A utomated message] The Eosinophils) system which ge nerated this result tra nsmitted reference range : <=4.0. The reference r kat was not used to int erpret this result as normal/abnormal . [facility] CenterJmfhjdnBJDDNWZTWC8469-99-28 13:03:00 Test Item Value Reference Range Interpretation Comments Eosinophils # (test code 0.2 See_Comment [A utomated message] The = Eosinophils #) system whic h generated this result tra nsmitted reference range : <=0.5. The reference r kat was not used to int erpret this result as normal/abnormal . [facility] CenterGbgrsskBJBJTSSRAE8139-50-01 13:03:00 Test Item Value Reference Range Interpretation Comments Monocytes # (test code 0.7 See_Comment [Aut omated message] The = Monocytes #) system which generated this result tra nsmitted reference range : <=0.8. The reference r kat was not used to int erpret this result as normal/abnormal . [facility] CenterBehvduvYBPLRIJLZV5735-26-56 13:03:00 Test Item Value Reference Range Interpretation Comments Microcyte (test code = 1+ *ABN*(09/19/15 Microcyte) 7:03 AM) [facility] CenterFagfrqhJIJOJCPOIX7021-35-46 13:03:00 Test Item Value Reference Range Interpretation Comments Basophils # (test code 0.1 See_Comment [Aut omated message] The = Basophils #) system which generated this result tra nsmitted reference range : <=0.2. The reference r kat was not used to int erpret this result as normal/abnormal . [facility] CenterIzngskzJXYLPKESQE0617-19-61 13:03:00 Test Item Value Reference Range Interpretation Comments Monocytes (test code = Monocytes) 10.4 2.0-12.0 [facility] CenterHwdugfbOXSYVNNLZU0111-68-57 13:03:00 Test Item Value Reference Range Interpretation Comments Lymphocytes (test code = Lymphocytes) 35.3 20.0-40.0 [facility] CenterGjtmhpbXAYEFZURWG5644-40-55 13:03:00 Test Item Value Reference Range Interpretation Comments Segs (test code = Segs) 50.8 45.0-75.0 [facility] CenterAleulioCAGSBDNLCE2048-93-72 13:03:00 Test Item Value Reference Range Interpretation Comments MCHC (test code = MCHC) 30.5 32.0-36.0 [facility] CenterJbmplkcIMKVKFPKIG1609-84-25 13:03:00 Test Item Value Reference Range Interpretation Comments Platelet (test code = Platelet) 175 133-450 [facility] CenterAjftajcYEDJNQAJTI4152-57-63 13:03:00 Test Item Value Reference Range Interpretation Comments RDW (test code = RDW) 17.1 11.5-14.5 [facility] CenterUpmbhwgEFSTTYTIRK0997-05-92 13:03:00 Test Item Value Reference Range Interpretation Comments MCV (test code = MCV) 78.4 80.0-98.0 [facility] CenterErvtsklOLDPBOBYSD0144-57-09 13:03:00 Test Item Value Reference Range Interpretation Comments MCH (test code = MCH) 24.0 pg 27.0-31.0 [facility] CenterRbxmyjpMSGGDOVBOT0705-88-69 13:03:00 Test Item Value Reference Range Interpretation Comments RBC (test code = RBC) 5.15 4.20-5.40 [facility] CenterLebcwdvHOVWZVPNYL5411-49-77 13:03:00 Test Item Value Reference Range Interpretation Comments Hct (test code = Hct) 40.4 36.0-48.0 [facility] CenterYolnyjtMNGVXCOLVP0324-18-72 13:03:00 Test Item Value Reference Range Interpretation Comments WBC (test code = WBC) 6.5 3.7-10.4 [facility] CenterDvsqavoJCIZUSUGCG3728-04-64 13:03:00 Test Item Value Reference Range Interpretation Comments MPV (test code = MPV) 10.2 7.4-10.4 [facility] CenterMwdrakkIRZIMPZXIF0646-75-81 13:03:00 Test Item Value Reference Range Interpretation Comments Hgb (test code = Hgb) 12.3 12.0-16.0 [facility]2016-01-21 13:03:00 Test Item Value Reference Range Interpretation Comments Magnesium Lvl (test code = Magnesium 1.9 1.8-2.4 Lvl) [facility]2016-01-21 13:03:00 Test Item Value Reference Range Interpretation Comments eGFR (test code = eGFR) 127 [facility]2016-01-21 13:03:00 Test Item Value Reference Range Interpretation Comments Creatinine Lvl (test code = Creatinine 0.60 0.50-1.40 Lvl) [facility]2016-01-21 13:03:00 Test Item Value Reference Range Interpretation Comments Glucose Lvl (test code = Glucose Lvl) 82 70-99 [facility]2016-01-21 13:03:00 Test Item Value Reference Range Interpretation Comments BUN (test code = BUN) 7 7-22 [facility]2016-01-21 13:03:00 Test Item Value Reference Range Interpretation Comments Potassium Lvl (test code = Potassium 4.1 3.5-5.1 Lvl) [facility]2016-01-21 13:03:00 Test Item Value Reference Range Interpretation Comments Sodium Lvl (test code = Sodium Lvl) 141 135-145 [facility]2016-01-21 13:03:00 Test Item Value Reference Range Interpretation Comments Chloride Lvl (test code = Chloride Lvl) 108 95-109 [facility]2016-01-21 13:03:00 Test Item Value Reference Range Interpretation Comments CO2 (test code = CO2) 20 24-32 [facility]2016-01-21 13:03:00 Test Item Value Reference Range Interpretation Comments Calcium Lvl (test code = Calcium Lvl) 8.9 8.5-10.5 [facility]2016-01-21 13:03:00 Test Item Value Reference Range Interpretation Comments AGAP (test code = AGAP) 17.1 10.0-20.0 [facility] CenterZqstlfgHXWKHOIEKO7220-82-82 13:03:00 Test Item Value Reference Range Interpretation Comments Lymphocytes # (test code = Lymphocytes 2.3 1.0-5.5 #) [facility] CenterGdxoilzYCZKBKYUNL3243-12-05 13:03:00 Test Item Value Reference Range Interpretation Comments Basophils (test code = 1.0 See_Comment [Aut omated message] The Basophils) system which ge nerated this result tra nsmitted reference range : <=1.0. The reference r kat was not used to int erpret this result as normal/abnormal . [facility] CenterUnhnrxgVFMHQAEAGR8085-04-23 13:03:00 Test Item Value Reference Range Interpretation Comments Segs-Bands # (test code = Segs-Bands #) 3.3 1.5-8.1 [facility] CenterCbaczzbJITSWKGNVI3197-58-38 13:03:00 Test Item Value Reference Range Interpretation Comments Eosinophils (test code = 2.5 See_Comment [A utomated message] The Eosinophils) system which ge nerated this result tra nsmitted reference range : <=4.0. The reference r kat was not used to int erpret this result as normal/abnormal . [facility] CenterDboljhhYVKEYZRPTP3799-12-55 13:03:00 Test Item Value Reference Range Interpretation Comments Eosinophils # (test code 0.2 See_Comment [A utomated message] The = Eosinophils #) system whic h generated this result tra nsmitted reference range : <=0.5. The reference r kat was not used to int erpret this result as normal/abnormal . [facility] CenterZgobmtqGTUCFHMDYL6943-07-64 13:03:00 Test Item Value Reference Range Interpretation Comments Monocytes # (test code 0.7 See_Comment [Aut omated message] The = Monocytes #) system which generated this result tra nsmitted reference range : <=0.8. The reference r kat was not used to int erpret this result as normal/abnormal . [facility] CenterHsnswqkLKBIECZDMJ1562-30-32 13:03:00 Test Item Value Reference Range Interpretation Comments Microcyte (test code = 1+ *ABN*(09/19/15 Microcyte) 7:03 AM) [facility] CenterWvhtaohNZIODTQNJJ2139-11-90 13:03:00 Test Item Value Reference Range Interpretation Comments Basophils # (test code 0.1 See_Comment [Aut omated message] The = Basophils #) system which generated this result tra nsmitted reference range : <=0.2. The reference r kat was not used to int erpret this result as normal/abnormal . [facility] CenterEvdhjqfXGGWTXWURJ0003-81-07 13:03:00 Test Item Value Reference Range Interpretation Comments Monocytes (test code = Monocytes) 10.4 2.0-12.0 [facility] CenterXztyzjhTJMXRHPKED3711-25-67 13:03:00 Test Item Value Reference Range Interpretation Comments Lymphocytes (test code = Lymphocytes) 35.3 20.0-40.0 [facility] CenterYriujhlAKMSQNKAAJ7973-69-84 13:03:00 Test Item Value Reference Range Interpretation Comments Segs (test code = Segs) 50.8 45.0-75.0 [facility] CenterUbbckclPSRECXOXOR7385-66-71 13:03:00 Test Item Value Reference Range Interpretation Comments MCHC (test code = MCHC) 30.5 32.0-36.0 [facility] CenterFwfnvuoZNPZCGXGRX5597-36-51 13:03:00 Test Item Value Reference Range Interpretation Comments Platelet (test code = Platelet) 175 133-450 [facility] CenterPuuwgwgQHRBTPSQNZ2252-57-63 13:03:00 Test Item Value Reference Range Interpretation Comments RDW (test code = RDW) 17.1 11.5-14.5 [facility] CenterNlpfpmmUGPKSVOZHU0315-95-12 13:03:00 Test Item Value Reference Range Interpretation Comments MCV (test code = MCV) 78.4 80.0-98.0 [facility] CenterElxxqhuXFZEHWBPEI5886-02-71 13:03:00 Test Item Value Reference Range Interpretation Comments MCH (test code = MCH) 24.0 pg 27.0-31.0 [facility] CenterFxltfplRNHEVIGWFQ9238-11-93 13:03:00 Test Item Value Reference Range Interpretation Comments RBC (test code = RBC) 5.15 4.20-5.40 [facility] CenterHucoiqcUGAYGQNEMF6170-44-05 13:03:00 Test Item Value Reference Range Interpretation Comments Hct (test code = Hct) 40.4 36.0-48.0 [facility] CenterMllbmnuPATNVCXVUW0214-42-84 13:03:00 Test Item Value Reference Range Interpretation Comments WBC (test code = WBC) 6.5 3.7-10.4 [facility] CenterDivclddSXMHMPDIAZ6022-05-36 13:03:00 Test Item Value Reference Range Interpretation Comments MPV (test code = MPV) 10.2 7.4-10.4 [facility] CenterShaazjxYYLFNFMTKT0507-14-20 13:03:00 Test Item Value Reference Range Interpretation Comments Hgb (test code = Hgb) 12.3 12.0-16.0 [facility]2016-01-20 12:40:00 Test Item Value Reference Range Interpretation Comments eGFR (test code = eGFR) 129 [facility]2016-01-20 12:40:00 Test Item Value Reference Range Interpretation Comments Creatinine Lvl (test code = Creatinine 0.58 0.50-1.40 Lvl) [facility]2016-01-20 12:40:00 Test Item Value Reference Range Interpretation Comments CO2 (test code = CO2) 23 24-32 [facility]2016-01-20 12:40:00 Test Item Value Reference Range Interpretation Comments Chloride Lvl (test code = Chloride Lvl) 109 95-109 [facility]2016-01-20 12:40:00 Test Item Value Reference Range Interpretation Comments Calcium Lvl (test code = Calcium Lvl) 9.0 8.5-10.5 [facility]2016-01-20 12:40:00 Test Item Value Reference Range Interpretation Comments Potassium Lvl (test code = Potassium 3.7 3.5-5.1 Lvl) [facility]2016-01-20 12:40:00 Test Item Value Reference Range Interpretation Comments AGAP (test code = AGAP) 12.7 10.0-20.0 [facility]2016-01-20 12:40:00 Test Item Value Reference Range Interpretation Comments BUN (test code = BUN) 9 7-22 [facility]2016-01-20 12:40:00 Test Item Value Reference Range Interpretation Comments Sodium Lvl (test code = Sodium Lvl) 141 135-145 [facility]2016-01-20 12:40:00 Test Item Value Reference Range Interpretation Comments Glucose Lvl (test code = Glucose Lvl) 87 70-99 [facility]2016-01-20 12:40:00 Test Item Value Reference Range Interpretation Comments eGFR (test code = eGFR) 129 [facility]2016-01-20 12:40:00 Test Item Value Reference Range Interpretation Comments Creatinine Lvl (test code = Creatinine 0.58 0.50-1.40 Lvl) [facility]2016-01-20 12:40:00 Test Item Value Reference Range Interpretation Comments CO2 (test code = CO2) 23 - [facility]2016-01-20 12:40:00 Test Item Value Reference Range Interpretation Comments Chloride Lvl (test code = Chloride Lvl) 109 95-109 [facility]2016-01-20 12:40:00 Test Item Value Reference Range Interpretation Comments Calcium Lvl (test code = Calcium Lvl) 9.0 8.5-10.5 [facility]2016-01-20 12:40:00 Test Item Value Reference Range Interpretation Comments Potassium Lvl (test code = Potassium 3.7 3.5-5.1 Lvl) [facility]2016-01-20 12:40:00 Test Item Value Reference Range Interpretation Comments AGAP (test code = AGAP) 12.7 10.0-20.0 [facility]2016-01-20 12:40:00 Test Item Value Reference Range Interpretation Comments BUN (test code = BUN) 9 7-22 [facility]2016-01-20 12:40:00 Test Item Value Reference Range Interpretation Comments Sodium Lvl (test code = Sodium Lvl) 141 135-145 [facility]2016-01-20 12:40:00 Test Item Value Reference Range Interpretation Comments Glucose Lvl (test code = Glucose Lvl) 87 70-99 [facility]2016-01-20 12:40:00 Test Item Value Reference Range Interpretation Comments eGFR (test code = eGFR) 129 [facility]2016-01-20 12:40:00 Test Item Value Reference Range Interpretation Comments Creatinine Lvl (test code = Creatinine 0.58 0.50-1.40 Lvl) [facility]2016-01-20 12:40:00 Test Item Value Reference Range Interpretation Comments CO2 (test code = CO2) 23 24-32 [facility]2016-01-20 12:40:00 Test Item Value Reference Range Interpretation Comments Chloride Lvl (test code = Chloride Lvl) 109 95-109 [facility]2016-01-20 12:40:00 Test Item Value Reference Range Interpretation Comments Calcium Lvl (test code = Calcium Lvl) 9.0 8.5-10.5 [facility]2016-01-20 12:40:00 Test Item Value Reference Range Interpretation Comments Potassium Lvl (test code = Potassium 3.7 3.5-5.1 Lvl) [facility]2016-01-20 12:40:00 Test Item Value Reference Range Interpretation Comments AGAP (test code = AGAP) 12.7 10.0-20.0 [facility]2016-01-20 12:40:00 Test Item Value Reference Range Interpretation Comments BUN (test code = BUN) 9 7-22 [facility]2016-01-20 12:40:00 Test Item Value Reference Range Interpretation Comments Sodium Lvl (test code = Sodium Lvl) 141 135-145 [facility]2016-01-20 12:40:00 Test Item Value Reference Range Interpretation Comments Glucose Lvl (test code = Glucose Lvl) 87 70-99 [facility]2016-01-20 12:40:00 Test Item Value Reference Range Interpretation Comments eGFR (test code = eGFR) 129 [facility]2016-01-20 12:40:00 Test Item Value Reference Range Interpretation Comments Creatinine Lvl (test code = Creatinine 0.58 0.50-1.40 Lvl) [facility]2016-01-20 12:40:00 Test Item Value Reference Range Interpretation Comments CO2 (test code = CO2) 23 24-32 [facility]2016-01-20 12:40:00 Test Item Value Reference Range Interpretation Comments Chloride Lvl (test code = Chloride Lvl) 109 95-109 [facility]2016-01-20 12:40:00 Test Item Value Reference Range Interpretation Comments Calcium Lvl (test code = Calcium Lvl) 9.0 8.5-10.5 [facility]2016-01-20 12:40:00 Test Item Value Reference Range Interpretation Comments Potassium Lvl (test code = Potassium 3.7 3.5-5.1 Lvl) [facility]2016-01-20 12:40:00 Test Item Value Reference Range Interpretation Comments AGAP (test code = AGAP) 12.7 10.0-20.0 [facility]2016-01-20 12:40:00 Test Item Value Reference Range Interpretation Comments BUN (test code = BUN) 9 - [facility]2016-01-20 12:40:00 Test Item Value Reference Range Interpretation Comments Sodium Lvl (test code = Sodium Lvl) 141 135-145 [facility]2016-01-20 12:40:00 Test Item Value Reference Range Interpretation Comments Glucose Lvl (test code = Glucose Lvl) 87 70-99 [facility]2016-01-20 12:40:00 Test Item Value Reference Range Interpretation Comments eGFR (test code = eGFR) 129 [facility]2016-01-20 12:40:00 Test Item Value Reference Range Interpretation Comments Creatinine Lvl (test code = Creatinine 0.58 0.50-1.40 Lvl) [facility]2016-01-20 12:40:00 Test Item Value Reference Range Interpretation Comments CO2 (test code = CO2) 23 24-32 [facility]2016-01-20 12:40:00 Test Item Value Reference Range Interpretation Comments Chloride Lvl (test code = Chloride Lvl) 109 95-109 [facility]2016-01-20 12:40:00 Test Item Value Reference Range Interpretation Comments Calcium Lvl (test code = Calcium Lvl) 9.0 8.5-10.5 [facility]2016-01-20 12:40:00 Test Item Value Reference Range Interpretation Comments Potassium Lvl (test code = Potassium 3.7 3.5-5.1 Lvl) [facility]2016-01-20 12:40:00 Test Item Value Reference Range Interpretation Comments AGAP (test code = AGAP) 12.7 10.0-20.0 [facility]2016-01-20 12:40:00 Test Item Value Reference Range Interpretation Comments BUN (test code = BUN) 9 - [facility]2016-01-20 12:40:00 Test Item Value Reference Range Interpretation Comments Sodium Lvl (test code = Sodium Lvl) 141 135-145 [place] 610126-01-20 12:40:00 Test Item Value Reference Range Interpretation Comments Glucose Lvl (test code = Glucose Lvl) 87 70-99 [facility]2016-01-20 12:40:00 Test Item Value Reference Range Interpretation Comments eGFR (test code = eGFR) 129 [facility]2016-01-20 12:40:00 Test Item Value Reference Range Interpretation Comments Creatinine Lvl (test code = Creatinine 0.58 0.50-1.40 Lvl) [facility]2016-01-20 12:40:00 Test Item Value Reference Range Interpretation Comments CO2 (test code = CO2) 23 24-32 [facility]2016-01-20 12:40:00 Test Item Value Reference Range Interpretation Comments Chloride Lvl (test code = Chloride Lvl) 109 95-109 [facility]2016-01-20 12:40:00 Test Item Value Reference Range Interpretation Comments Calcium Lvl (test code = Calcium Lvl) 9.0 8.5-10.5 [facility]2016-01-20 12:40:00 Test Item Value Reference Range Interpretation Comments Potassium Lvl (test code = Potassium 3.7 3.5-5.1 Lvl) [facility]2016-01-20 12:40:00 Test Item Value Reference Range Interpretation Comments AGAP (test code = AGAP) 12.7 10.0-20.0 [facility]2016-01-20 12:40:00 Test Item Value Reference Range Interpretation Comments BUN (test code = BUN) 9 7-22 [facility]2016-01-20 12:40:00 Test Item Value Reference Range Interpretation Comments Sodium Lvl (test code = Sodium Lvl) 141 135-145 [facility]2016-01-20 12:40:00 Test Item Value Reference Range Interpretation Comments Glucose Lvl (test code = Glucose Lvl) 87 70-99 [facility]2016-01-20 12:40:00 Test Item Value Reference Range Interpretation Comments eGFR (test code = eGFR) 129 [facility]2016-01-20 12:40:00 Test Item Value Reference Range Interpretation Comments Creatinine Lvl (test code = Creatinine 0.58 0.50-1.40 Lvl) [facility]2016-01-20 12:40:00 Test Item Value Reference Range Interpretation Comments CO2 (test code = CO2) 23 24-32 [facility]2016-01-20 12:40:00 Test Item Value Reference Range Interpretation Comments Chloride Lvl (test code = Chloride Lvl) 109 95-109 [facility]2016-01-20 12:40:00 Test Item Value Reference Range Interpretation Comments Calcium Lvl (test code = Calcium Lvl) 9.0 8.5-10.5 [facility]2016-01-20 12:40:00 Test Item Value Reference Range Interpretation Comments Potassium Lvl (test code = Potassium 3.7 3.5-5.1 Lvl) [facility]2016-01-20 12:40:00 Test Item Value Reference Range Interpretation Comments AGAP (test code = AGAP) 12.7 10.0-20.0 [facility]2016-01-20 12:40:00 Test Item Value Reference Range Interpretation Comments BUN (test code = BUN) 9 7- [facility]2016-01-20 12:40:00 Test Item Value Reference Range Interpretation Comments Sodium Lvl (test code = Sodium Lvl) 141 135-145 [facility]2016-01-20 12:40:00 Test Item Value Reference Range Interpretation Comments Glucose Lvl (test code = Glucose Lvl) 87 70-99 [facility]2016-01-20 12:40:00 Test Item Value Reference Range Interpretation Comments eGFR (test code = eGFR) 129 [facility]2016-01-20 12:40:00 Test Item Value Reference Range Interpretation Comments Creatinine Lvl (test code = Creatinine 0.58 0.50-1.40 Lvl) [facility]2016-01-20 12:40:00 Test Item Value Reference Range Interpretation Comments CO2 (test code = CO2) 23 24-32 [facility]2016-01-20 12:40:00 Test Item Value Reference Range Interpretation Comments Chloride Lvl (test code = Chloride Lvl) 109 95-109 [facility]2016-01-20 12:40:00 Test Item Value Reference Range Interpretation Comments Calcium Lvl (test code = Calcium Lvl) 9.0 8.5-10.5 [facility]2016-01-20 12:40:00 Test Item Value Reference Range Interpretation Comments Potassium Lvl (test code = Potassium 3.7 3.5-5.1 Lvl) [facility]2016-01-20 12:40:00 Test Item Value Reference Range Interpretation Comments AGAP (test code = AGAP) 12.7 10.0-20.0 [facility]2016-01-20 12:40:00 Test Item Value Reference Range Interpretation Comments BUN (test code = BUN) 9 7-22 [facility]2016-01-20 12:40:00 Test Item Value Reference Range Interpretation Comments Sodium Lvl (test code = Sodium Lvl) 141 135-145 [facility]2016-01-20 12:40:00 Test Item Value Reference Range Interpretation Comments Glucose Lvl (test code = Glucose Lvl) 87 70-99 [facility]2016-01-20 12:40:00 Test Item Value Reference Range Interpretation Comments eGFR (test code = eGFR) 129 [facility]2016-01-20 12:40:00 Test Item Value Reference Range Interpretation Comments Creatinine Lvl (test code = Creatinine 0.58 0.50-1.40 Lvl) [facility]2016-01-20 12:40:00 Test Item Value Reference Range Interpretation Comments CO2 (test code = CO2) 23 24-32 [facility]2016-01-20 12:40:00 Test Item Value Reference Range Interpretation Comments Chloride Lvl (test code = Chloride Lvl) 109 95-109 [facility]2016-01-20 12:40:00 Test Item Value Reference Range Interpretation Comments Calcium Lvl (test code = Calcium Lvl) 9.0 8.5-10.5 [facility]2016-01-20 12:40:00 Test Item Value Reference Range Interpretation Comments Potassium Lvl (test code = Potassium 3.7 3.5-5.1 Lvl) [facility]2016-01-20 12:40:00 Test Item Value Reference Range Interpretation Comments AGAP (test code = AGAP) 12.7 10.0-20.0 [facility]2016-01-20 12:40:00 Test Item Value Reference Range Interpretation Comments BUN (test code = BUN) 9 7-22 [facility]2016-01-20 12:40:00 Test Item Value Reference Range Interpretation Comments Sodium Lvl (test code = Sodium Lvl) 141 135-145 [facility]2016-01-20 12:40:00 Test Item Value Reference Range Interpretation Comments Glucose Lvl (test code = Glucose Lvl) 87 70- [facility]2016-01-20 12:40:00 Test Item Value Reference Range Interpretation Comments eGFR (test code = eGFR) 129 [facility]2016-01-20 12:40:00 Test Item Value Reference Range Interpretation Comments Creatinine Lvl (test code = Creatinine 0.58 0.50-1.40 Lvl) [facility]2016-01-20 12:40:00 Test Item Value Reference Range Interpretation Comments CO2 (test code = CO2) 23 24-32 [facility]2016-01-20 12:40:00 Test Item Value Reference Range Interpretation Comments Chloride Lvl (test code = Chloride Lvl) 109 95-109 [facility]2016-01-20 12:40:00 Test Item Value Reference Range Interpretation Comments Calcium Lvl (test code = Calcium Lvl) 9.0 8.5-10.5 [facility]2016-01-20 12:40:00 Test Item Value Reference Range Interpretation Comments Potassium Lvl (test code = Potassium 3.7 3.5-5.1 Lvl) [facility]2016-01-20 12:40:00 Test Item Value Reference Range Interpretation Comments AGAP (test code = AGAP) 12.7 10.0-20.0 [facility]2016-01-20 12:40:00 Test Item Value Reference Range Interpretation Comments BUN (test code = BUN) 9 7-22 [facility]2016-01-20 12:40:00 Test Item Value Reference Range Interpretation Comments Sodium Lvl (test code = Sodium Lvl) 141 135-145 [facility]2016-01-20 12:40:00 Test Item Value Reference Range Interpretation Comments Glucose Lvl (test code = Glucose Lvl) 87 70-99 [facility]2016-01-20 12:40:00 Test Item Value Reference Range Interpretation Comments eGFR (test code = eGFR) 129 [facility]2016-01-20 12:40:00 Test Item Value Reference Range Interpretation Comments Creatinine Lvl (test code = Creatinine 0.58 0.50-1.40 Lvl) [facility]2016-01-20 12:40:00 Test Item Value Reference Range Interpretation Comments CO2 (test code = CO2) - [facility]2016-01-20 12:40:00 Test Item Value Reference Range Interpretation Comments Chloride Lvl (test code = Chloride Lvl) 109 95-109 [facility]2016-01-20 12:40:00 Test Item Value Reference Range Interpretation Comments Calcium Lvl (test code = Calcium Lvl) 9.0 8.5-10.5 [facility]2016-01-20 12:40:00 Test Item Value Reference Range Interpretation Comments Potassium Lvl (test code = Potassium 3.7 3.5-5.1 Lvl) [facility]2016-01-20 12:40:00 Test Item Value Reference Range Interpretation Comments AGAP (test code = AGAP) 12.7 10.0-20.0 [facility]2016-01-20 12:40:00 Test Item Value Reference Range Interpretation Comments BUN (test code = BUN) 9 7-22 [facility]2016-01-20 12:40:00 Test Item Value Reference Range Interpretation Comments Sodium Lvl (test code = Sodium Lvl) 141 135-145 [facility]2016-01-20 12:40:00 Test Item Value Reference Range Interpretation Comments Glucose Lvl (test code = Glucose Lvl) 87 70-99 [facility]2016-01-20 12:40:00 Test Item Value Reference Range Interpretation Comments eGFR (test code = eGFR) 129 [facility]2016-01-20 12:40:00 Test Item Value Reference Range Interpretation Comments Creatinine Lvl (test code = Creatinine 0.58 0.50-1.40 Lvl) [facility]2016-01-20 12:40:00 Test Item Value Reference Range Interpretation Comments CO2 (test code = CO2) 23 24-32 [facility]2016-01-20 12:40:00 Test Item Value Reference Range Interpretation Comments Chloride Lvl (test code = Chloride Lvl) 109 95-109 [facility]2016-01-20 12:40:00 Test Item Value Reference Range Interpretation Comments Calcium Lvl (test code = Calcium Lvl) 9.0 8.5-10.5 [facility]2016-01-20 12:40:00 Test Item Value Reference Range Interpretation Comments Potassium Lvl (test code = Potassium 3.7 3.5-5.1 Lvl) [facility]2016-01-20 12:40:00 Test Item Value Reference Range Interpretation Comments AGAP (test code = AGAP) 12.7 10.0-20.0 [facility]2016-01-20 12:40:00 Test Item Value Reference Range Interpretation Comments BUN (test code = BUN) 9 7-22 [facility]2016-01-20 12:40:00 Test Item Value Reference Range Interpretation Comments Sodium Lvl (test code = Sodium Lvl) 141 135-145 [facility]2016-01-20 12:40:00 Test Item Value Reference Range Interpretation Comments Glucose Lvl (test code = Glucose Lvl) 87 70-99 [facility]2016-01-20 12:40:00 Test Item Value Reference Range Interpretation Comments eGFR (test code = eGFR) 129 [facility]2016-01-20 12:40:00 Test Item Value Reference Range Interpretation Comments Creatinine Lvl (test code = Creatinine 0.58 0.50-1.40 Lvl) [facility]2016-01-20 12:40:00 Test Item Value Reference Range Interpretation Comments CO2 (test code = CO2) 23 24-32 [facility]2016-01-20 12:40:00 Test Item Value Reference Range Interpretation Comments Chloride Lvl (test code = Chloride Lvl) 109 95-109 [facility]2016-01-20 12:40:00 Test Item Value Reference Range Interpretation Comments Calcium Lvl (test code = Calcium Lvl) 9.0 8.5-10.5 [facility]2016-01-20 12:40:00 Test Item Value Reference Range Interpretation Comments Potassium Lvl (test code = Potassium 3.7 3.5-5.1 Lvl) [facility]2016-01-20 12:40:00 Test Item Value Reference Range Interpretation Comments AGAP (test code = AGAP) 12.7 10.0-20.0 [facility]2016-01-20 12:40:00 Test Item Value Reference Range Interpretation Comments BUN (test code = BUN) 9 - [facility]2016-01-20 12:40:00 Test Item Value Reference Range Interpretation Comments Sodium Lvl (test code = Sodium Lvl) 141 135-145 [facility]2016-01-20 12:40:00 Test Item Value Reference Range Interpretation Comments Glucose Lvl (test code = Glucose Lvl) 87 70-99 [facility]2016-01-20 12:40:00 Test Item Value Reference Range Interpretation Comments eGFR (test code = eGFR) 129 [facility]2016-01-20 12:40:00 Test Item Value Reference Range Interpretation Comments Creatinine Lvl (test code = Creatinine 0.58 0.50-1.40 Lvl) [facility]2016-01-20 12:40:00 Test Item Value Reference Range Interpretation Comments CO2 (test code = CO2) 23 24-32 [facility]2016-01-20 12:40:00 Test Item Value Reference Range Interpretation Comments Chloride Lvl (test code = Chloride Lvl) 109 95-109 [facility]2016-01-20 12:40:00 Test Item Value Reference Range Interpretation Comments Calcium Lvl (test code = Calcium Lvl) 9.0 8.5-10.5 [facility]2016-01-20 12:40:00 Test Item Value Reference Range Interpretation Comments Potassium Lvl (test code = Potassium 3.7 3.5-5.1 Lvl) [facility]2016-01-20 12:40:00 Test Item Value Reference Range Interpretation Comments AGAP (test code = AGAP) 12.7 10.0-20.0 [facility]2016-01-20 12:40:00 Test Item Value Reference Range Interpretation Comments BUN (test code = BUN) 9 - [facility]2016-01-20 12:40:00 Test Item Value Reference Range Interpretation Comments Sodium Lvl (test code = Sodium Lvl) 141 135-145 [facility]2016-01-20 12:40:00 Test Item Value Reference Range Interpretation Comments Glucose Lvl (test code = Glucose Lvl) 87 70-99 [facility]2016-01-20 12:40:00 Test Item Value Reference Range Interpretation Comments eGFR (test code = eGFR) 129 [facility]2016-01-20 12:40:00 Test Item Value Reference Range Interpretation Comments Creatinine Lvl (test code = Creatinine 0.58 0.50-1.40 Lvl) [facility]2016-01-20 12:40:00 Test Item Value Reference Range Interpretation Comments CO2 (test code = CO2) 23 24-32 [facility]2016-01-20 12:40:00 Test Item Value Reference Range Interpretation Comments Chloride Lvl (test code = Chloride Lvl) 109 95-109 [facility]2016-01-20 12:40:00 Test Item Value Reference Range Interpretation Comments Calcium Lvl (test code = Calcium Lvl) 9.0 8.5-10.5 [facility]2016-01-20 12:40:00 Test Item Value Reference Range Interpretation Comments Potassium Lvl (test code = Potassium 3.7 3.5-5.1 Lvl) [facility]2016-01-20 12:40:00 Test Item Value Reference Range Interpretation Comments AGAP (test code = AGAP) 12.7 10.0-20.0 [facility]2016-01-20 12:40:00 Test Item Value Reference Range Interpretation Comments BUN (test code = BUN) 9 7-22 [facility]2016-01-20 12:40:00 Test Item Value Reference Range Interpretation Comments Sodium Lvl (test code = Sodium Lvl) 141 135-145 [facility]2016-01-20 12:40:00 Test Item Value Reference Range Interpretation Comments Glucose Lvl (test code = Glucose Lvl) 87 70-99 [facility]2016-01-20 12:40:00 Test Item Value Reference Range Interpretation Comments eGFR (test code = eGFR) 129 [facility]2016-01-20 12:40:00 Test Item Value Reference Range Interpretation Comments Creatinine Lvl (test code = Creatinine 0.58 0.50-1.40 Lvl) [facility]2016-01-20 12:40:00 Test Item Value Reference Range Interpretation Comments CO2 (test code = CO2) 23 24-32 [facility]2016-01-20 12:40:00 Test Item Value Reference Range Interpretation Comments Chloride Lvl (test code = Chloride Lvl) 109 95-109 [facility]2016-01-20 12:40:00 Test Item Value Reference Range Interpretation Comments Calcium Lvl (test code = Calcium Lvl) 9.0 8.5-10.5 [facility]2016-01-20 12:40:00 Test Item Value Reference Range Interpretation Comments Potassium Lvl (test code = Potassium 3.7 3.5-5.1 Lvl) [facility]2016-01-20 12:40:00 Test Item Value Reference Range Interpretation Comments AGAP (test code = AGAP) 12.7 10.0-20.0 [facility]2016-01-20 12:40:00 Test Item Value Reference Range Interpretation Comments BUN (test code = BUN) 9 7-22 [facility]2016-01-20 12:40:00 Test Item Value Reference Range Interpretation Comments Sodium Lvl (test code = Sodium Lvl) 141 135-145 [facility]2016-01-20 12:40:00 Test Item Value Reference Range Interpretation Comments Glucose Lvl (test code = Glucose Lvl) 87 70-99 [facility]2016-01-20 12:40:00 Test Item Value Reference Range Interpretation Comments eGFR (test code = eGFR) 129 [facility]2016-01-20 12:40:00 Test Item Value Reference Range Interpretation Comments Creatinine Lvl (test code = Creatinine 0.58 0.50-1.40 Lvl) [facility]2016-01-20 12:40:00 Test Item Value Reference Range Interpretation Comments CO2 (test code = CO2) 23 24-32 [facility]2016-01-20 12:40:00 Test Item Value Reference Range Interpretation Comments Chloride Lvl (test code = Chloride Lvl) 109 95-109 [facility]2016-01-20 12:40:00 Test Item Value Reference Range Interpretation Comments Calcium Lvl (test code = Calcium Lvl) 9.0 8.5-10.5 [facility]2016-01-20 12:40:00 Test Item Value Reference Range Interpretation Comments Potassium Lvl (test code = Potassium 3.7 3.5-5.1 Lvl) [facility]2016-01-20 12:40:00 Test Item Value Reference Range Interpretation Comments AGAP (test code = AGAP) 12.7 10.0-20.0 [facility]2016-01-20 12:40:00 Test Item Value Reference Range Interpretation Comments BUN (test code = BUN) 9 - [facility]2016-01-20 12:40:00 Test Item Value Reference Range Interpretation Comments Sodium Lvl (test code = Sodium Lvl) 141 135-145 [facility]2016-01-20 12:40:00 Test Item Value Reference Range Interpretation Comments Glucose Lvl (test code = Glucose Lvl) 87 70-99 [facility]2016-01-20 12:40:00 Test Item Value Reference Range Interpretation Comments eGFR (test code = eGFR) 129 [facility]2016-01-20 12:40:00 Test Item Value Reference Range Interpretation Comments Creatinine Lvl (test code = Creatinine 0.58 0.50-1.40 Lvl) [facility]2016-01-20 12:40:00 Test Item Value Reference Range Interpretation Comments CO2 (test code = CO2) 23 24-32 [facility]2016-01-20 12:40:00 Test Item Value Reference Range Interpretation Comments Chloride Lvl (test code = Chloride Lvl) 109 95-109 [facility]2016-01-20 12:40:00 Test Item Value Reference Range Interpretation Comments Calcium Lvl (test code = Calcium Lvl) 9.0 8.5-10.5 [facility]2016-01-20 12:40:00 Test Item Value Reference Range Interpretation Comments Potassium Lvl (test code = Potassium 3.7 3.5-5.1 Lvl) [facility]2016-01-20 12:40:00 Test Item Value Reference Range Interpretation Comments AGAP (test code = AGAP) 12.7 10.0-20.0 [facility]2016-01-20 12:40:00 Test Item Value Reference Range Interpretation Comments BUN (test code = BUN) 9 7- [facility]2016-01-20 12:40:00 Test Item Value Reference Range Interpretation Comments Sodium Lvl (test code = Sodium Lvl) 141 135-145 [facility]2016-01-20 12:40:00 Test Item Value Reference Range Interpretation Comments Glucose Lvl (test code = Glucose Lvl) 87 70-99 [facility]2016-01-20 12:40:00 Test Item Value Reference Range Interpretation Comments eGFR (test code = eGFR) 129 [facility]2016-01-20 12:40:00 Test Item Value Reference Range Interpretation Comments Creatinine Lvl (test code = Creatinine 0.58 0.50-1.40 Lvl) [facility]2016-01-20 12:40:00 Test Item Value Reference Range Interpretation Comments CO2 (test code = CO2) 23 24-32 [facility]2016-01-20 12:40:00 Test Item Value Reference Range Interpretation Comments Chloride Lvl (test code = Chloride Lvl) 109 95-109 [facility]2016-01-20 12:40:00 Test Item Value Reference Range Interpretation Comments Calcium Lvl (test code = Calcium Lvl) 9.0 8.5-10.5 [facility]2016-01-20 12:40:00 Test Item Value Reference Range Interpretation Comments Potassium Lvl (test code = Potassium 3.7 3.5-5.1 Lvl) [facility]2016-01-20 12:40:00 Test Item Value Reference Range Interpretation Comments AGAP (test code = AGAP) 12.7 10.0-20.0 [facility]2016-01-20 12:40:00 Test Item Value Reference Range Interpretation Comments BUN (test code = BUN) 9 7-22 [facility]2016-01-20 12:40:00 Test Item Value Reference Range Interpretation Comments Sodium Lvl (test code = Sodium Lvl) 141 135-145 [facility]2016-01-20 12:40:00 Test Item Value Reference Range Interpretation Comments Glucose Lvl (test code = Glucose Lvl) 87 70-99 [facility]2016-01-20 12:40:00 Test Item Value Reference Range Interpretation Comments eGFR (test code = eGFR) 129 [facility]2016-01-20 12:40:00 Test Item Value Reference Range Interpretation Comments Creatinine Lvl (test code = Creatinine 0.58 0.50-1.40 Lvl) [facility]2016-01-20 12:40:00 Test Item Value Reference Range Interpretation Comments CO2 (test code = CO2) 23 - [facility]2016-01-20 12:40:00 Test Item Value Reference Range Interpretation Comments Chloride Lvl (test code = Chloride Lvl) 109 95-109 [facility]2016-01-20 12:40:00 Test Item Value Reference Range Interpretation Comments Calcium Lvl (test code = Calcium Lvl) 9.0 8.5-10.5 [facility]2016-01-20 12:40:00 Test Item Value Reference Range Interpretation Comments Potassium Lvl (test code = Potassium 3.7 3.5-5.1 Lvl) [facility]2016-01-20 12:40:00 Test Item Value Reference Range Interpretation Comments AGAP (test code = AGAP) 12.7 10.0-20.0 [facility]2016-01-20 12:40:00 Test Item Value Reference Range Interpretation Comments BUN (test code = BUN) 9 7-22 [facility]2016-01-20 12:40:00 Test Item Value Reference Range Interpretation Comments Sodium Lvl (test code = Sodium Lvl) 141 135-145 [facility]2016-01-20 12:40:00 Test Item Value Reference Range Interpretation Comments Glucose Lvl (test code = Glucose Lvl) 87 70-99 [facility]2016-01-20 12:40:00 Test Item Value Reference Range Interpretation Comments eGFR (test code = eGFR) 129 [facility]2016-01-20 12:40:00 Test Item Value Reference Range Interpretation Comments Creatinine Lvl (test code = Creatinine 0.58 0.50-1.40 Lvl) [facility]2016-01-20 12:40:00 Test Item Value Reference Range Interpretation Comments CO2 (test code = CO2) 23 - [facility]2016-01-20 12:40:00 Test Item Value Reference Range Interpretation Comments Chloride Lvl (test code = Chloride Lvl) 109 95-109 [facility]2016-01-20 12:40:00 Test Item Value Reference Range Interpretation Comments Calcium Lvl (test code = Calcium Lvl) 9.0 8.5-10.5 [facility]2016-01-20 12:40:00 Test Item Value Reference Range Interpretation Comments Potassium Lvl (test code = Potassium 3.7 3.5-5.1 Lvl) [facility]2016-01-20 12:40:00 Test Item Value Reference Range Interpretation Comments AGAP (test code = AGAP) 12.7 10.0-20.0 [facility]2016-01-20 12:40:00 Test Item Value Reference Range Interpretation Comments BUN (test code = BUN) 9 7-22 [facility]2016-01-20 12:40:00 Test Item Value Reference Range Interpretation Comments Sodium Lvl (test code = Sodium Lvl) 141 135-145 [facility]2016-01-20 12:40:00 Test Item Value Reference Range Interpretation Comments Glucose Lvl (test code = Glucose Lvl) 87 70-99 [facility] AND [id number] 05:30:00 Test Item Value Reference Range Interpretation Comments UA Urobilinogen (test code = UA <=1.0 mg/dL 0.1-1.0 Urobilinogen) [facility] AND [id number] 05:30:00 Test Item Value Reference Range Interpretation Comments UA Color (test code = UA Color) Marry [facility] AND [id number] 05:30:00 Test Item Value Reference Range Interpretation Comments UA Bacteria (test code = UA Many /HPF Bacteria) [facility] AND [id number] 05:30:00 Test Item Value Reference Range Interpretation Comments UA Mucus (test code = UA Mucus) Many /LPF [facility] AND [id number] 05:30:00 Test Item Value Reference Range Interpretation Comments UA Leuk Est (test code Large *ABN*(09/17/15 = UA Leuk Est) 11:30 PM) [facility] AND [id number] 05:30:00 Test Item Value Reference Range Interpretation Comments UA Sq Epi (test code = UA Sq Epi) Many /LPF [facility] AND [id number] 05:30:00 Test Item Value Reference Range Interpretation Comments UA Nitrite (test code Negative (09/17/15 11:30 = UA Nitrite) PM) [facility] AND [id number] 05:30:00 Test Item Value Reference Range Interpretation Comments UA WBC (test code = 16 See_Comment [Automa arvind message] The UA WBC) system which ge nerated this result transmit arvind reference range : <=5. The reference range was not used to interpr et this result as mario l/abnormal. [facility] AND [id number] 05:30:00 Test Item Value Reference Range Interpretation Comments UA RBC (test code = 5 See_Comment [Automa arvind message] The UA RBC) system which ge nerated this result transmit arvind reference range : <=2. The reference range was not used to interpr et this result as mario l/abnormal. [facility] AND [id number] 05:30:00 Test Item Value Reference Range Interpretation Comments UA Bili (test code = Negative *NA*(09/17/15 UA Bili) 11:30 PM) [facility] AND [id number] 05:30:00 Test Item Value Reference Range Interpretation Comments UA Blood (test code = Negative (09/17/15 11:30 UA Blood) PM) [facility] AND [id number] 05:30:00 Test Item Value Reference Range Interpretation Comments UA Glucose (test code = UA Negative mg/dL Glucose) [facility] AND [id number] 05:30:00 Test Item Value Reference Range Interpretation Comments UA Ketones (test code = UA Trace mg/dL Ketones) [facility] AND [id number] 05:30:00 Test Item Value Reference Range Interpretation Comments UA Protein (test code = UA Protein) 30 mg/dL [facility] AND [id number] 05:30:00 Test Item Value Reference Range Interpretation Comments UA pH (test code = UA pH) 5.0 5.0-8.0 [facility] AND [id number] 05:30:00 Test Item Value Reference Range Interpretation Comments UA Spec Grav (test code = UA Spec Grav) 1.030 [facility] AND [id number] 05:30:00 Test Item Value Reference Range Interpretation Comments UA Turbidity (test code Marked *ABN*(09/17/15 = UA Turbidity) 11:30 PM) [facility] [id number] 05:30:00 Test Item Value Reference Range Interpretation Comments U Preg (test code = U Negative (09/17/15 11:30 Preg) PM) [facility] AND [id number] 05:30:00 Test Item Value Reference Range Interpretation Comments UA Urobilinogen (test code = UA <=1.0 mg/dL 0.1-1.0 Urobilinogen) [facility] AND [id number] 05:30:00 Test Item Value Reference Range Interpretation Comments UA Color (test code = UA Color) Marry [facility] AND [id number] 05:30:00 Test Item Value Reference Range Interpretation Comments UA Bacteria (test code = UA Many /HPF Bacteria) [facility] AND [id number] 05:30:00 Test Item Value Reference Range Interpretation Comments UA Mucus (test code = UA Mucus) Many /LPF [facility] AND [id number] 05:30:00 Test Item Value Reference Range Interpretation Comments UA Leuk Est (test code Large *ABN*(09/17/15 = UA Leuk Est) 11:30 PM) [facility] AND [id number] 05:30:00 Test Item Value Reference Range Interpretation Comments UA Sq Epi (test code = UA Sq Epi) Many /LPF [facility] AND [id number] 05:30:00 Test Item Value Reference Range Interpretation Comments UA Nitrite (test code Negative (09/17/15 11:30 = UA Nitrite) PM) [facility] AND [id number] 05:30:00 Test Item Value Reference Range Interpretation Comments UA WBC (test code = 16 See_Comment [Automa arvind message] The UA WBC) system which ge nerated this result transmit arvind reference range : <=5. The reference range was not used to interpr et this result as mario l/abnormal. [facility] AND [id number] 05:30:00 Test Item Value Reference Range Interpretation Comments UA RBC (test code = 5 See_Comment [Automa arvind message] The UA RBC) system which ge nerated this result transmit arvind reference range : <=2. The reference range was not used to interpr et this result as mario l/abnormal. [facility] [id number] 05:30:00 Test Item Value Reference Range Interpretation Comments UA Bili (test code = Negative *NA*(09/17/15 UA Bili) 11:30 PM) [facility] [id number] 05:30:00 Test Item Value Reference Range Interpretation Comments UA Blood (test code = Negative (09/17/15 11:30 UA Blood) PM) [facility] [id number] 05:30:00 Test Item Value Reference Range Interpretation Comments UA Glucose (test code = UA Negative mg/dL Glucose) [facility] [id number] 05:30:00 Test Item Value Reference Range Interpretation Comments UA Ketones (test code = UA Trace mg/dL Ketones) [facility] [id number] 05:30:00 Test Item Value Reference Range Interpretation Comments UA Protein (test code = UA Protein) 30 mg/dL [facility] AND [id number] 05:30:00 Test Item Value Reference Range Interpretation Comments UA pH (test code = UA pH) 5.0 5.0-8.0 [facility] [id number] 05:30:00 Test Item Value Reference Range Interpretation Comments UA Spec Grav (test code = UA Spec Grav) 1.030 [facility] AND [id number] 05:30:00 Test Item Value Reference Range Interpretation Comments UA Turbidity (test code Marked *ABN*(09/17/15 = UA Turbidity) 11:30 PM) [facility] [id number] 05:30:00 Test Item Value Reference Range Interpretation Comments U Preg (test code = U Negative (09/17/15 11:30 Preg) PM) [facility] [id number] 05:30:00 Test Item Value Reference Range Interpretation Comments UA Urobilinogen (test code = UA <=1.0 mg/dL 0.1-1.0 Urobilinogen) [facility] [id number] 05:30:00 Test Item Value Reference Range Interpretation Comments UA Color (test code = UA Color) Marry [facility] AND [id number] 05:30:00 Test Item Value Reference Range Interpretation Comments UA Bacteria (test code = UA Many /HPF Bacteria) [facility] AND [id number] 05:30:00 Test Item Value Reference Range Interpretation Comments UA Mucus (test code = UA Mucus) Many /LPF [facility] [id number] 05:30:00 Test Item Value Reference Range Interpretation Comments UA Leuk Est (test code Large *ABN*(09/17/15 = UA Leuk Est) 11:30 PM) [facility] AND [id number] 05:30:00 Test Item Value Reference Range Interpretation Comments UA Sq Epi (test code = UA Sq Epi) Many /LPF [facility] AND [id number] 05:30:00 Test Item Value Reference Range Interpretation Comments UA Nitrite (test code Negative (09/17/15 11:30 = UA Nitrite) PM) [facility] AND [id number] 05:30:00 Test Item Value Reference Range Interpretation Comments UA WBC (test code = 16 See_Comment [Automa arvind message] The UA WBC) system which ge nerated this result transmit arvind reference range : <=5. The reference range was not used to interpr et this result as mario l/abnormal. [facility] AND [id number] 05:30:00 Test Item Value Reference Range Interpretation Comments UA RBC (test code = 5 See_Comment [Automa arvind message] The UA RBC) system which ge nerated this result transmit arvind reference range : <=2. The reference range was not used to interpr et this result as mario l/abnormal. [facility] AND [id number] 05:30:00 Test Item Value Reference Range Interpretation Comments UA Bili (test code = Negative *NA*(09/17/15 UA Bili) 11:30 PM) [facility] AND [id number] 05:30:00 Test Item Value Reference Range Interpretation Comments UA Blood (test code = Negative (09/17/15 11:30 UA Blood) PM) [facility] AND [id number] 05:30:00 Test Item Value Reference Range Interpretation Comments UA Glucose (test code = UA Negative mg/dL Glucose) [facility] AND [id number] 05:30:00 Test Item Value Reference Range Interpretation Comments UA Ketones (test code = UA Trace mg/dL Ketones) [facility] [id number] 05:30:00 Test Item Value Reference Range Interpretation Comments UA Protein (test code = UA Protein) 30 mg/dL [facility] [id number] 05:30:00 Test Item Value Reference Range Interpretation Comments UA pH (test code = UA pH) 5.0 5.0-8.0 [facility] [id number] 05:30:00 Test Item Value Reference Range Interpretation Comments UA Spec Grav (test code = UA Spec Grav) 1.030 [facility] [id number] 05:30:00 Test Item Value Reference Range Interpretation Comments UA Turbidity (test code Marked *ABN*(09/17/15 = UA Turbidity) 11:30 PM) [facility] [id number] 05:30:00 Test Item Value Reference Range Interpretation Comments U Preg (test code = U Negative (09/17/15 11:30 Preg) PM) [facility] [id number] 05:30:00 Test Item Value Reference Range Interpretation Comments UA Urobilinogen (test code = UA <=1.0 mg/dL 0.1-1.0 Urobilinogen) [facility] [id number] 05:30:00 Test Item Value Reference Range Interpretation Comments UA Color (test code = UA Color) Marry [facility] AND [id number] 05:30:00 Test Item Value Reference Range Interpretation Comments UA Bacteria (test code = UA Many /HPF Bacteria) [facility] [id number] 05:30:00 Test Item Value Reference Range Interpretation Comments UA Mucus (test code = UA Mucus) Many /LPF [facility] [id number] 05:30:00 Test Item Value Reference Range Interpretation Comments UA Leuk Est (test code Large *ABN*(09/17/15 = UA Leuk Est) 11:30 PM) [facility] [id number] 05:30:00 Test Item Value Reference Range Interpretation Comments UA Sq Epi (test code = UA Sq Epi) Many /LPF [facility] [id number] 05:30:00 Test Item Value Reference Range Interpretation Comments UA Nitrite (test code Negative (09/17/15 11:30 = UA Nitrite) PM) [facility] AND [id number] 05:30:00 Test Item Value Reference Range Interpretation Comments UA WBC (test code = 16 See_Comment [Automa arvind message] The UA WBC) system which ge nerated this result transmit arvind reference range : <=5. The reference range was not used to interpr et this result as mario l/abnormal. [facility] AND [id number] 05:30:00 Test Item Value Reference Range Interpretation Comments UA RBC (test code = 5 See_Comment [Automa arvind message] The UA RBC) system which ge nerated this result transmit arvind reference range : <=2. The reference range was not used to interpr et this result as mario l/abnormal. [facility] AND [id number] 05:30:00 Test Item Value Reference Range Interpretation Comments UA Bili (test code = Negative *NA*(09/17/15 UA Bili) 11:30 PM) [facility] AND [id number] 05:30:00 Test Item Value Reference Range Interpretation Comments UA Blood (test code = Negative (09/17/15 11:30 UA Blood) PM) [facility] AND [id number] 05:30:00 Test Item Value Reference Range Interpretation Comments UA Glucose (test code = UA Negative mg/dL Glucose) [facility] AND [id number] 05:30:00 Test Item Value Reference Range Interpretation Comments UA Ketones (test code = UA Trace mg/dL Ketones) [facility] AND [id number] 05:30:00 Test Item Value Reference Range Interpretation Comments UA Protein (test code = UA Protein) 30 mg/dL [facility] AND [id number] 05:30:00 Test Item Value Reference Range Interpretation Comments UA pH (test code = UA pH) 5.0 5.0-8.0 [facility] AND [id number] 05:30:00 Test Item Value Reference Range Interpretation Comments UA Spec Grav (test code = UA Spec Grav) 1.030 [facility] AND [id number] 05:30:00 Test Item Value Reference Range Interpretation Comments UA Turbidity (test code Marked *ABN*(09/17/15 = UA Turbidity) 11:30 PM) [facility] [id number] 05:30:00 Test Item Value Reference Range Interpretation Comments U Preg (test code = U Negative (09/17/15 11:30 Preg) PM) [facility] [id number] 05:30:00 Test Item Value Reference Range Interpretation Comments UA Urobilinogen (test code = UA <=1.0 mg/dL 0.1-1.0 Urobilinogen) [facility] [id number] 05:30:00 Test Item Value Reference Range Interpretation Comments UA Color (test code = UA Color) Marry [facility] [id number] 05:30:00 Test Item Value Reference Range Interpretation Comments UA Bacteria (test code = UA Many /HPF Bacteria) [facility] [id number] 05:30:00 Test Item Value Reference Range Interpretation Comments UA Mucus (test code = UA Mucus) Many /LPF [facility] [id number] 05:30:00 Test Item Value Reference Range Interpretation Comments UA Urobilinogen (test code = UA <=1.0 mg/dL 0.1-1.0 Urobilinogen) [facility] [id number] 05:30:00 Test Item Value Reference Range Interpretation Comments UA Color (test code = UA Color) Marry [facility] [id number] 05:30:00 Test Item Value Reference Range Interpretation Comments UA Bacteria (test code = UA Many /HPF Bacteria) [facility] [id number] 05:30:00 Test Item Value Reference Range Interpretation Comments UA Mucus (test code = UA Mucus) Many /LPF [facility] [id number] 05:30:00 Test Item Value Reference Range Interpretation Comments UA Leuk Est (test code Large *ABN*(09/17/15 = UA Leuk Est) 11:30 PM) [facility] [id number] 05:30:00 Test Item Value Reference Range Interpretation Comments UA Sq Epi (test code = UA Sq Epi) Many /LPF [facility] [id number] 05:30:00 Test Item Value Reference Range Interpretation Comments UA Leuk Est (test code Large *ABN*(09/17/15 = UA Leuk Est) 11:30 PM) [facility] AND [id number] 05:30:00 Test Item Value Reference Range Interpretation Comments UA Nitrite (test code Negative (09/17/15 11:30 = UA Nitrite) PM) [facility] AND [id number] 05:30:00 Test Item Value Reference Range Interpretation Comments UA WBC (test code = 16 See_Comment [Automa arvind message] The UA WBC) system which ge nerated this result transmit arvind reference range : <=5. The reference range was not used to interpr et this result as mario l/abnormal. [facility] AND [id number] 05:30:00 Test Item Value Reference Range Interpretation Comments UA RBC (test code = 5 See_Comment [Automa arvind message] The UA RBC) system which ge nerated this result transmit arvind reference range : <=2. The reference range was not used to interpr et this result as mario l/abnormal. [facility] AND [id number] 05:30:00 Test Item Value Reference Range Interpretation Comments UA Bili (test code = Negative *NA*(09/17/15 UA Bili) 11:30 PM) [facility] AND [id number] 05:30:00 Test Item Value Reference Range Interpretation Comments UA Blood (test code = Negative (09/17/15 11:30 UA Blood) PM) [facility] AND [id number] 05:30:00 Test Item Value Reference Range Interpretation Comments UA Glucose (test code = UA Negative mg/dL Glucose) [facility] AND [id number] 05:30:00 Test Item Value Reference Range Interpretation Comments UA Ketones (test code = UA Trace mg/dL Ketones) [facility] AND [id number] 05:30:00 Test Item Value Reference Range Interpretation Comments UA Protein (test code = UA Protein) 30 mg/dL [facility] AND [id number] 05:30:00 Test Item Value Reference Range Interpretation Comments UA pH (test code = UA pH) 5.0 5.0-8.0 [facility] AND [id number] 05:30:00 Test Item Value Reference Range Interpretation Comments UA Spec Grav (test code = UA Spec Grav) 1.030 [facility] AND [id number] 05:30:00 Test Item Value Reference Range Interpretation Comments UA Sq Epi (test code = UA Sq Epi) Many /LPF [facility] AND [id number] 05:30:00 Test Item Value Reference Range Interpretation Comments UA Turbidity (test code Marked *ABN*(09/17/15 = UA Turbidity) 11:30 PM) [facility] [id number] 05:30:00 Test Item Value Reference Range Interpretation Comments U Preg (test code = U Negative (09/17/15 11:30 Preg) PM) [facility] AND [id number] 05:30:00 Test Item Value Reference Range Interpretation Comments UA Nitrite (test code Negative (09/17/15 11:30 = UA Nitrite) PM) [facility] AND [id number] 05:30:00 Test Item Value Reference Range Interpretation Comments UA WBC (test code = 16 See_Comment [Automa arvind message] The UA WBC) system which ge nerated this result transmit arvind reference range : <=5. The reference range was not used to interpr et this result as mario l/abnormal. [facility] AND [id number] 05:30:00 Test Item Value Reference Range Interpretation Comments UA RBC (test code = 5 See_Comment [Automa arvind message] The UA RBC) system which ge nerated this result transmit arvind reference range : <=2. The reference range was not used to interpr et this result as mario l/abnormal. [facility] AND [id number] 05:30:00 Test Item Value Reference Range Interpretation Comments UA Bili (test code = Negative *NA*(09/17/15 UA Bili) 11:30 PM) [facility] [id number] 05:30:00 Test Item Value Reference Range Interpretation Comments UA Blood (test code = Negative (09/17/15 11:30 UA Blood) PM) [facility] AND [id number] 05:30:00 Test Item Value Reference Range Interpretation Comments UA Glucose (test code = UA Negative mg/dL Glucose) [facility] AND [id number] 05:30:00 Test Item Value Reference Range Interpretation Comments UA Ketones (test code = UA Trace mg/dL Ketones) [facility] [id number] 05:30:00 Test Item Value Reference Range Interpretation Comments UA Protein (test code = UA Protein) 30 mg/dL [facility] [id number] 05:30:00 Test Item Value Reference Range Interpretation Comments UA pH (test code = UA pH) 5.0 5.0-8.0 [facility] [id number] 05:30:00 Test Item Value Reference Range Interpretation Comments UA Spec Grav (test code = UA Spec Grav) 1.030 [facility] [id number] 05:30:00 Test Item Value Reference Range Interpretation Comments UA Turbidity (test code Marked *ABN*(09/17/15 = UA Turbidity) 11:30 PM) [facility] [id number] 05:30:00 Test Item Value Reference Range Interpretation Comments U Preg (test code = U Negative (09/17/15 11:30 Preg) PM) [facility] [id number] 05:30:00 Test Item Value Reference Range Interpretation Comments UA Urobilinogen (test code = UA <=1.0 mg/dL 0.1-1.0 Urobilinogen) [facility] [id number] 05:30:00 Test Item Value Reference Range Interpretation Comments UA Color (test code = UA Color) [facility] [id number] 05:30:00 Test Item Value Reference Range Interpretation Comments UA Bacteria (test code = UA Many /HPF Bacteria) [facility] [id number] 05:30:00 Test Item Value Reference Range Interpretation Comments UA Mucus (test code = UA Mucus) Many /LPF [facility] [id number] 05:30:00 Test Item Value Reference Range Interpretation Comments UA Leuk Est (test code Large *ABN*(09/17/15 = UA Leuk Est) 11:30 PM) [facility] AND [id number] 05:30:00 Test Item Value Reference Range Interpretation Comments UA Sq Epi (test code = UA Sq Epi) Many /LPF [facility] [id number] 05:30:00 Test Item Value Reference Range Interpretation Comments UA Nitrite (test code Negative (09/17/15 11:30 = UA Nitrite) PM) [facility] AND [id number] 05:30:00 Test Item Value Reference Range Interpretation Comments UA WBC (test code = 16 See_Comment [Automa arvind message] The UA WBC) system which ge nerated this result transmit arvind reference range : <=5. The reference range was not used to interpr et this result as mario l/abnormal. [facility] AND [id number] 05:30:00 Test Item Value Reference Range Interpretation Comments UA RBC (test code = 5 See_Comment [Automa arvind message] The UA RBC) system which ge nerated this result transmit arvind reference range : <=2. The reference range was not used to interpr et this result as mario l/abnormal. [facility] AND [id number] 05:30:00 Test Item Value Reference Range Interpretation Comments UA Bili (test code = Negative *NA*(09/17/15 UA Bili) 11:30 PM) [facility] AND [id number] 05:30:00 Test Item Value Reference Range Interpretation Comments UA Blood (test code = Negative (09/17/15 11:30 UA Blood) PM) [facility] AND [id number] 05:30:00 Test Item Value Reference Range Interpretation Comments UA Glucose (test code = UA Negative mg/dL Glucose) [facility] AND [id number] 05:30:00 Test Item Value Reference Range Interpretation Comments UA Ketones (test code = UA Trace mg/dL Ketones) [facility] AND [id number] 05:30:00 Test Item Value Reference Range Interpretation Comments UA Protein (test code = UA Protein) 30 mg/dL [facility] AND [id number] 05:30:00 Test Item Value Reference Range Interpretation Comments UA pH (test code = UA pH) 5.0 5.0-8.0 [facility] AND [id number] 05:30:00 Test Item Value Reference Range Interpretation Comments UA Spec Grav (test code = UA Spec Grav) 1.030 [facility] AND [id number] 05:30:00 Test Item Value Reference Range Interpretation Comments UA Turbidity (test code Marked *ABN*(09/17/15 = UA Turbidity) 11:30 PM) [facility] [id number] 05:30:00 Test Item Value Reference Range Interpretation Comments U Preg (test code = U Negative (09/17/15 11:30 Preg) PM) [facility] AND [id number] 05:30:00 Test Item Value Reference Range Interpretation Comments UA Urobilinogen (test code = UA <=1.0 mg/dL 0.1-1.0 Urobilinogen) [facility] AND [id number] 05:30:00 Test Item Value Reference Range Interpretation Comments UA Color (test code = UA Color) [facility] AND [id number] 05:30:00 Test Item Value Reference Range Interpretation Comments UA Bacteria (test code = UA Many /HPF Bacteria) [facility] AND [id number] 05:30:00 Test Item Value Reference Range Interpretation Comments UA Mucus (test code = UA Mucus) Many /LPF [facility] AND [id number] 05:30:00 Test Item Value Reference Range Interpretation Comments UA Leuk Est (test code Large *ABN*(09/17/15 = UA Leuk Est) 11:30 PM) [facility] AND [id number] 05:30:00 Test Item Value Reference Range Interpretation Comments UA Sq Epi (test code = UA Sq Epi) Many /LPF [facility] AND [id number] 05:30:00 Test Item Value Reference Range Interpretation Comments UA Nitrite (test code Negative (09/17/15 11:30 = UA Nitrite) PM) [facility] AND [id number] 05:30:00 Test Item Value Reference Range Interpretation Comments UA WBC (test code = 16 See_Comment [Automa arvind message] The UA WBC) system which ge nerated this result transmit arvind reference range : <=5. The reference range was not used to interpr et this result as mario l/abnormal. [facility] AND [id number] 05:30:00 Test Item Value Reference Range Interpretation Comments UA RBC (test code = 5 See_Comment [Automa arvind message] The UA RBC) system which ge nerated this result transmit arvind reference range : <=2. The reference range was not used to interpr et this result as mario l/abnormal. [facility] AND [id number] 05:30:00 Test Item Value Reference Range Interpretation Comments UA Bili (test code = Negative *NA*(09/17/15 UA Bili) 11:30 PM) [facility] AND [id number] 05:30:00 Test Item Value Reference Range Interpretation Comments UA Blood (test code = Negative (09/17/15 11:30 UA Blood) PM) [facility] [id number] 05:30:00 Test Item Value Reference Range Interpretation Comments UA Glucose (test code = UA Negative mg/dL Glucose) [facility] AND [id number] 05:30:00 Test Item Value Reference Range Interpretation Comments UA Ketones (test code = UA Trace mg/dL Ketones) [facility] AND [id number] 05:30:00 Test Item Value Reference Range Interpretation Comments UA Protein (test code = UA Protein) 30 mg/dL [facility] AND [id number] 05:30:00 Test Item Value Reference Range Interpretation Comments UA pH (test code = UA pH) 5.0 5.0-8.0 [facility] AND [id number] 05:30:00 Test Item Value Reference Range Interpretation Comments UA Spec Grav (test code = UA Spec Grav) 1.030 [facility] AND [id number] 05:30:00 Test Item Value Reference Range Interpretation Comments UA Turbidity (test code Marked *ABN*(09/17/15 = UA Turbidity) 11:30 PM) [facility] [id number] 05:30:00 Test Item Value Reference Range Interpretation Comments U Preg (test code = U Negative (09/17/15 11:30 Preg) PM) [facility] [id number] 05:30:00 Test Item Value Reference Range Interpretation Comments UA Urobilinogen (test code = UA <=1.0 mg/dL 0.1-1.0 Urobilinogen) [facility] [id number] 05:30:00 Test Item Value Reference Range Interpretation Comments UA Color (test code = UA Color) [facility] AND [id number] 05:30:00 Test Item Value Reference Range Interpretation Comments UA Bacteria (test code = UA Many /HPF Bacteria) [facility] AND [id number] 05:30:00 Test Item Value Reference Range Interpretation Comments UA Mucus (test code = UA Mucus) Many /LPF [facility] AND [id number] 05:30:00 Test Item Value Reference Range Interpretation Comments UA Leuk Est (test code Large *ABN*(09/17/15 = UA Leuk Est) 11:30 PM) [facility] AND [id number] 05:30:00 Test Item Value Reference Range Interpretation Comments UA Sq Epi (test code = UA Sq Epi) Many /LPF [facility] AND [id number] 05:30:00 Test Item Value Reference Range Interpretation Comments UA Nitrite (test code Negative (09/17/15 11:30 = UA Nitrite) PM) [facility] AND [id number] 05:30:00 Test Item Value Reference Range Interpretation Comments UA WBC (test code = 16 See_Comment [Automa arvind message] The UA WBC) system which ge nerated this result transmit arvind reference range : <=5. The reference range was not used to interpr et this result as mario l/abnormal. [facility] AND [id number] 05:30:00 Test Item Value Reference Range Interpretation Comments UA RBC (test code = 5 See_Comment [Automa arvind message] The UA RBC) system which ge nerated this result transmit arvind reference range : <=2. The reference range was not used to interpr et this result as mario l/abnormal. [facility] AND [id number] 05:30:00 Test Item Value Reference Range Interpretation Comments UA Bili (test code = Negative *NA*(09/17/15 UA Bili) 11:30 PM) [facility] AND [id number] 05:30:00 Test Item Value Reference Range Interpretation Comments UA Blood (test code = Negative (09/17/15 11:30 UA Blood) PM) [facility] AND [id number] 05:30:00 Test Item Value Reference Range Interpretation Comments UA Glucose (test code = UA Negative mg/dL Glucose) [facility] AND [id number] 05:30:00 Test Item Value Reference Range Interpretation Comments UA Ketones (test code = UA Trace mg/dL Ketones) [facility] [id number] 05:30:00 Test Item Value Reference Range Interpretation Comments UA Protein (test code = UA Protein) 30 mg/dL [facility] [id number] 05:30:00 Test Item Value Reference Range Interpretation Comments UA pH (test code = UA pH) 5.0 5.0-8.0 [facility] [id number] 05:30:00 Test Item Value Reference Range Interpretation Comments UA Spec Grav (test code = UA Spec Grav) 1.030 [facility] [id number] 05:30:00 Test Item Value Reference Range Interpretation Comments UA Turbidity (test code Marked *ABN*(09/17/15 = UA Turbidity) 11:30 PM) [facility] [id number] 05:30:00 Test Item Value Reference Range Interpretation Comments U Preg (test code = U Negative (09/17/15 11:30 Preg) PM) [facility] AND [id number] 05:30:00 Test Item Value Reference Range Interpretation Comments UA Urobilinogen (test code = UA <=1.0 mg/dL 0.1-1.0 Urobilinogen) [facility] [id number] 05:30:00 Test Item Value Reference Range Interpretation Comments UA Color (test code = UA Color) [facility] [id number] 05:30:00 Test Item Value Reference Range Interpretation Comments UA Bacteria (test code = UA Many /HPF Bacteria) [facility] [id number] 05:30:00 Test Item Value Reference Range Interpretation Comments UA Mucus (test code = UA Mucus) Many /LPF [facility] [id number] 05:30:00 Test Item Value Reference Range Interpretation Comments UA Leuk Est (test code Large *ABN*(09/17/15 = UA Leuk Est) 11:30 PM) [facility] AND [id number] 05:30:00 Test Item Value Reference Range Interpretation Comments UA Sq Epi (test code = UA Sq Epi) Many /LPF [facility] [id number] 05:30:00 Test Item Value Reference Range Interpretation Comments UA Nitrite (test code Negative (09/17/15 11:30 = UA Nitrite) PM) [facility] AND [id number] 05:30:00 Test Item Value Reference Range Interpretation Comments UA WBC (test code = 16 See_Comment [Automa arvind message] The UA WBC) system which ge nerated this result transmit arvind reference range : <=5. The reference range was not used to interpr et this result as mario l/abnormal. [facility] AND [id number] 05:30:00 Test Item Value Reference Range Interpretation Comments UA RBC (test code = 5 See_Comment [Automa arvind message] The UA RBC) system which ge nerated this result transmit arvind reference range : <=2. The reference range was not used to interpr et this result as mario l/abnormal. [facility] AND [id number] 05:30:00 Test Item Value Reference Range Interpretation Comments UA Bili (test code = Negative *NA*(09/17/15 UA Bili) 11:30 PM) [facility] AND [id number] 05:30:00 Test Item Value Reference Range Interpretation Comments UA Blood (test code = Negative (09/17/15 11:30 UA Blood) PM) [facility] AND [id number] 05:30:00 Test Item Value Reference Range Interpretation Comments UA Glucose (test code = UA Negative mg/dL Glucose) [facility] AND [id number] 05:30:00 Test Item Value Reference Range Interpretation Comments UA Ketones (test code = UA Trace mg/dL Ketones) [facility] AND [id number] 05:30:00 Test Item Value Reference Range Interpretation Comments UA Protein (test code = UA Protein) 30 mg/dL [facility] AND [id number] 05:30:00 Test Item Value Reference Range Interpretation Comments UA pH (test code = UA pH) 5.0 5.0-8.0 [facility] AND [id number] 05:30:00 Test Item Value Reference Range Interpretation Comments UA Spec Grav (test code = UA Spec Grav) 1.030 [facility] AND [id number] 05:30:00 Test Item Value Reference Range Interpretation Comments UA Turbidity (test code Marked *ABN*(09/17/15 = UA Turbidity) 11:30 PM) [facility] [id number] 05:30:00 Test Item Value Reference Range Interpretation Comments U Preg (test code = U Negative (09/17/15 11:30 Preg) PM) [facility] AND [id number] 05:30:00 Test Item Value Reference Range Interpretation Comments UA Urobilinogen (test code = UA <=1.0 mg/dL 0.1-1.0 Urobilinogen) [facility] AND [id number] 05:30:00 Test Item Value Reference Range Interpretation Comments UA Color (test code = UA Color) [facility] AND [id number] 05:30:00 Test Item Value Reference Range Interpretation Comments UA Bacteria (test code = UA Many /HPF Bacteria) [facility] AND [id number] 05:30:00 Test Item Value Reference Range Interpretation Comments UA Mucus (test code = UA Mucus) Many /LPF [facility] AND [id number] 05:30:00 Test Item Value Reference Range Interpretation Comments UA Leuk Est (test code Large *ABN*(09/17/15 = UA Leuk Est) 11:30 PM) [facility] AND [id number] 05:30:00 Test Item Value Reference Range Interpretation Comments UA Sq Epi (test code = UA Sq Epi) Many /LPF [facility] AND [id number] 05:30:00 Test Item Value Reference Range Interpretation Comments UA Nitrite (test code Negative (09/17/15 11:30 = UA Nitrite) PM) [facility] AND [id number] 05:30:00 Test Item Value Reference Range Interpretation Comments UA WBC (test code = 16 See_Comment [Automa arvind message] The UA WBC) system which ge nerated this result transmit arvind reference range : <=5. The reference range was not used to interpr et this result as mario l/abnormal. [facility] AND [id number] 05:30:00 Test Item Value Reference Range Interpretation Comments UA RBC (test code = 5 See_Comment [Automa arvind message] The UA RBC) system which ge nerated this result transmit arvind reference range : <=2. The reference range was not used to interpr et this result as mario l/abnormal. [facility] AND [id number] 05:30:00 Test Item Value Reference Range Interpretation Comments UA Bili (test code = Negative *NA*(09/17/15 UA Bili) 11:30 PM) [facility] AND [id number] 05:30:00 Test Item Value Reference Range Interpretation Comments UA Blood (test code = Negative (09/17/15 11:30 UA Blood) PM) [facility] AND [id number] 05:30:00 Test Item Value Reference Range Interpretation Comments UA Glucose (test code = UA Negative mg/dL Glucose) [facility] AND [id number] 05:30:00 Test Item Value Reference Range Interpretation Comments UA Ketones (test code = UA Trace mg/dL Ketones) [facility] AND [id number] 05:30:00 Test Item Value Reference Range Interpretation Comments UA Protein (test code = UA Protein) 30 mg/dL [facility] AND [id number] 05:30:00 Test Item Value Reference Range Interpretation Comments UA pH (test code = UA pH) 5.0 5.0-8.0 [facility] AND [id number] 05:30:00 Test Item Value Reference Range Interpretation Comments UA Spec Grav (test code = UA Spec Grav) 1.030 [facility] AND [id number] 05:30:00 Test Item Value Reference Range Interpretation Comments UA Turbidity (test code Marked *ABN*(09/17/15 = UA Turbidity) 11:30 PM) [facility] [id number] 05:30:00 Test Item Value Reference Range Interpretation Comments U Preg (test code = U Negative (09/17/15 11:30 Preg) PM) [facility] AND [id number] 05:30:00 Test Item Value Reference Range Interpretation Comments UA Urobilinogen (test code = UA <=1.0 mg/dL 0.1-1.0 Urobilinogen) [facility] AND [id number] 05:30:00 Test Item Value Reference Range Interpretation Comments UA Color (test code = UA Color) [facility] AND [id number] 05:30:00 Test Item Value Reference Range Interpretation Comments UA Bacteria (test code = UA Many /HPF Bacteria) [facility] AND [id number] 05:30:00 Test Item Value Reference Range Interpretation Comments UA Mucus (test code = UA Mucus) Many /LPF [facility] AND [id number] 05:30:00 Test Item Value Reference Range Interpretation Comments UA Leuk Est (test code Large *ABN*(09/17/15 = UA Leuk Est) 11:30 PM) [facility] AND [id number] 05:30:00 Test Item Value Reference Range Interpretation Comments UA Sq Epi (test code = UA Sq Epi) Many /LPF [facility] AND [id number] 05:30:00 Test Item Value Reference Range Interpretation Comments UA Nitrite (test code Negative (09/17/15 11:30 = UA Nitrite) PM) [facility] AND [id number] 05:30:00 Test Item Value Reference Range Interpretation Comments UA WBC (test code = 16 See_Comment [Automa arvind message] The UA WBC) system which ge nerated this result transmit arvind reference range : <=5. The reference range was not used to interpr et this result as mario l/abnormal. [facility] AND [id number] 05:30:00 Test Item Value Reference Range Interpretation Comments UA RBC (test code = 5 See_Comment [Automa arvind message] The UA RBC) system which ge nerated this result transmit arvind reference range : <=2. The reference range was not used to interpr et this result as mario l/abnormal. [facility] AND [id number] 05:30:00 Test Item Value Reference Range Interpretation Comments UA Bili (test code = Negative *NA*(09/17/15 UA Bili) 11:30 PM) [facility] AND [id number] 05:30:00 Test Item Value Reference Range Interpretation Comments UA Blood (test code = Negative (09/17/15 11:30 UA Blood) PM) [facility] AND [id number] 05:30:00 Test Item Value Reference Range Interpretation Comments UA Glucose (test code = UA Negative mg/dL Glucose) [facility] AND [id number] 05:30:00 Test Item Value Reference Range Interpretation Comments UA Ketones (test code = UA Trace mg/dL Ketones) [facility] [id number] 05:30:00 Test Item Value Reference Range Interpretation Comments UA Protein (test code = UA Protein) 30 mg/dL [facility] [id number] 05:30:00 Test Item Value Reference Range Interpretation Comments UA pH (test code = UA pH) 5.0 5.0-8.0 [facility] [id number] 05:30:00 Test Item Value Reference Range Interpretation Comments UA Spec Grav (test code = UA Spec Grav) [facility].030 [facility] [id number] 05:30:00 Test Item Value Reference Range Interpretation Comments UA Turbidity (test code Marked *ABN*(09/17/15 = UA Turbidity) 11:30 PM) [facility] [id number] 05:30:00 Test Item Value Reference Range Interpretation Comments U Preg (test code = U Negative (09/17/15 11:30 Preg) PM) [facility] [id number] 05:30:00 Test Item Value Reference Range Interpretation Comments UA Urobilinogen (test code = UA <=1.0 mg/dL 0.1-1.0 Urobilinogen) [facility] [id number] 05:30:00 Test Item Value Reference Range Interpretation Comments UA Color (test code = UA Color) [facility] AND [id number] 05:30:00 Test Item Value Reference Range Interpretation Comments UA Bacteria (test code = UA Many /HPF Bacteria) [facility] [id number] 05:30:00 Test Item Value Reference Range Interpretation Comments UA Mucus (test code = UA Mucus) Many /LPF [facility] [id number] 05:30:00 Test Item Value Reference Range Interpretation Comments UA Leuk Est (test code Large *ABN*(09/17/15 = UA Leuk Est) 11:30 PM) [facility] [id number] 05:30:00 Test Item Value Reference Range Interpretation Comments UA Sq Epi (test code = UA Sq Epi) Many /LPF [facility] [id number] 05:30:00 Test Item Value Reference Range Interpretation Comments UA Nitrite (test code Negative (09/17/15 11:30 = UA Nitrite) PM) [facility] AND [id number] 05:30:00 Test Item Value Reference Range Interpretation Comments UA WBC (test code = 16 See_Comment [Automa arvind message] The UA WBC) system which ge nerated this result transmit arvind reference range : <=5. The reference range was not used to interpr et this result as mario l/abnormal. [facility] AND [id number] 05:30:00 Test Item Value Reference Range Interpretation Comments UA RBC (test code = 5 See_Comment [Automa arvind message] The UA RBC) system which ge nerated this result transmit arvind reference range : <=2. The reference range was not used to interpr et this result as mario l/abnormal. [facility] AND [id number] 05:30:00 Test Item Value Reference Range Interpretation Comments UA Bili (test code = Negative *NA*(09/17/15 UA Bili) 11:30 PM) [facility] AND [id number] 05:30:00 Test Item Value Reference Range Interpretation Comments UA Blood (test code = Negative (09/17/15 11:30 UA Blood) PM) [facility] AND [id number] 05:30:00 Test Item Value Reference Range Interpretation Comments UA Glucose (test code = UA Negative mg/dL Glucose) [facility] AND [id number] 05:30:00 Test Item Value Reference Range Interpretation Comments UA Ketones (test code = UA Trace mg/dL Ketones) [facility] AND [id number] 05:30:00 Test Item Value Reference Range Interpretation Comments UA Protein (test code = UA Protein) 30 mg/dL [facility] AND [id number] 05:30:00 Test Item Value Reference Range Interpretation Comments UA pH (test code = UA pH) 5.0 5.0-8.0 [facility] AND [id number] 05:30:00 Test Item Value Reference Range Interpretation Comments UA Spec Grav (test code = UA Spec Grav) 1.030 [facility] AND [id number] 05:30:00 Test Item Value Reference Range Interpretation Comments UA Turbidity (test code Marked *ABN*(09/17/15 = UA Turbidity) 11:30 PM) [facility] [id number] 05:30:00 Test Item Value Reference Range Interpretation Comments U Preg (test code = U Negative (09/17/15 11:30 Preg) PM) [facility] AND [id number] 05:30:00 Test Item Value Reference Range Interpretation Comments UA Urobilinogen (test code = UA <=1.0 mg/dL 0.1-1.0 Urobilinogen) [facility] AND [id number] 05:30:00 Test Item Value Reference Range Interpretation Comments UA Color (test code = UA Color) [facility] AND [id number] 05:30:00 Test Item Value Reference Range Interpretation Comments UA Bacteria (test code = UA Many /HPF Bacteria) [facility] AND [id number] 05:30:00 Test Item Value Reference Range Interpretation Comments UA Mucus (test code = UA Mucus) Many /LPF [facility] AND [id number] 05:30:00 Test Item Value Reference Range Interpretation Comments UA Leuk Est (test code Large *ABN*(09/17/15 = UA Leuk Est) 11:30 PM) [facility] AND [id number] 05:30:00 Test Item Value Reference Range Interpretation Comments UA Sq Epi (test code = UA Sq Epi) Many /LPF [facility] AND [id number] 05:30:00 Test Item Value Reference Range Interpretation Comments UA Nitrite (test code Negative (09/17/15 11:30 = UA Nitrite) PM) [facility] AND [id number] 05:30:00 Test Item Value Reference Range Interpretation Comments UA WBC (test code = 16 See_Comment [Automa arvind message] The UA WBC) system which ge nerated this result transmit arvind reference range : <=5. The reference range was not used to interpr et this result as mario l/abnormal. [facility] AND [id number] 05:30:00 Test Item Value Reference Range Interpretation Comments UA RBC (test code = 5 See_Comment [Automa arvind message] The UA RBC) system which ge nerated this result transmit arvind reference range : <=2. The reference range was not used to interpr et this result as mario l/abnormal. [facility] AND [id number] 05:30:00 Test Item Value Reference Range Interpretation Comments UA Bili (test code = Negative *NA*(09/17/15 UA Bili) 11:30 PM) [facility] AND [id number] 05:30:00 Test Item Value Reference Range Interpretation Comments UA Blood (test code = Negative (09/17/15 11:30 UA Blood) PM) [facility] AND [id number] 05:30:00 Test Item Value Reference Range Interpretation Comments UA Glucose (test code = UA Negative mg/dL Glucose) [facility] AND [id number] 05:30:00 Test Item Value Reference Range Interpretation Comments UA Ketones (test code = UA Trace mg/dL Ketones) [facility] AND [id number] 05:30:00 Test Item Value Reference Range Interpretation Comments UA Protein (test code = UA Protein) 30 mg/dL [facility] AND [id number] 05:30:00 Test Item Value Reference Range Interpretation Comments UA pH (test code = UA pH) 5.0 5.0-8.0 [facility] AND [id number] 05:30:00 Test Item Value Reference Range Interpretation Comments UA Spec Grav (test code = UA Spec Grav) 1.030 [facility] AND [id number] 05:30:00 Test Item Value Reference Range Interpretation Comments UA Turbidity (test code Marked *ABN*(09/17/15 = UA Turbidity) 11:30 PM) [facility] [id number] 05:30:00 Test Item Value Reference Range Interpretation Comments U Preg (test code = U Negative (09/17/15 11:30 Preg) PM) [facility] AND [id number] 05:30:00 Test Item Value Reference Range Interpretation Comments UA Urobilinogen (test code = UA <=1.0 mg/dL 0.1-1.0 Urobilinogen) [facility] AND [id number] 05:30:00 Test Item Value Reference Range Interpretation Comments UA Color (test code = UA Color) [facility] AND [id number] 05:30:00 Test Item Value Reference Range Interpretation Comments UA Bacteria (test code = UA Many /HPF Bacteria) [facility] AND [id number] 05:30:00 Test Item Value Reference Range Interpretation Comments UA Mucus (test code = UA Mucus) Many /LPF [facility] AND [id number] 05:30:00 Test Item Value Reference Range Interpretation Comments UA Leuk Est (test code Large *ABN*(09/17/15 = UA Leuk Est) 11:30 PM) [facility] AND [id number] 05:30:00 Test Item Value Reference Range Interpretation Comments UA Sq Epi (test code = UA Sq Epi) Many /LPF [facility] AND [id number] 05:30:00 Test Item Value Reference Range Interpretation Comments UA Nitrite (test code Negative (09/17/15 11:30 = UA Nitrite) PM) [facility] AND [id number] 05:30:00 Test Item Value Reference Range Interpretation Comments UA WBC (test code = 16 See_Comment [Automa arvind message] The UA WBC) system which ge nerated this result transmit arvind reference range : <=5. The reference range was not used to interpr et this result as mario l/abnormal. [facility] AND [id number] 05:30:00 Test Item Value Reference Range Interpretation Comments UA RBC (test code = 5 See_Comment [Automa arvind message] The UA RBC) system which ge nerated this result transmit arvind reference range : <=2. The reference range was not used to interpr et this result as mario l/abnormal. [facility] AND [id number] 05:30:00 Test Item Value Reference Range Interpretation Comments UA Bili (test code = Negative *NA*(09/17/15 UA Bili) 11:30 PM) [facility] AND [id number] 05:30:00 Test Item Value Reference Range Interpretation Comments UA Blood (test code = Negative (09/17/15 11:30 UA Blood) PM) [facility] AND [id number] 05:30:00 Test Item Value Reference Range Interpretation Comments UA Glucose (test code = UA Negative mg/dL Glucose) [facility] AND [id number] 05:30:00 Test Item Value Reference Range Interpretation Comments UA Ketones (test code = UA Trace mg/dL Ketones) [facility] [id number] 05:30:00 Test Item Value Reference Range Interpretation Comments UA Protein (test code = UA Protein) 30 mg/dL [facility] [id number] 05:30:00 Test Item Value Reference Range Interpretation Comments UA pH (test code = UA pH) 5.0 5.0-8.0 [facility] [id number] 05:30:00 Test Item Value Reference Range Interpretation Comments UA Spec Grav (test code = UA Spec Grav) 1.030 [facility] [id number] 05:30:00 Test Item Value Reference Range Interpretation Comments UA Turbidity (test code Marked *ABN*(09/17/15 = UA Turbidity) 11:30 PM) [facility] [id number] 05:30:00 Test Item Value Reference Range Interpretation Comments U Preg (test code = U Negative (09/17/15 11:30 Preg) PM) [facility] [id number] 05:30:00 Test Item Value Reference Range Interpretation Comments UA Urobilinogen (test code = UA <=1.0 mg/dL 0.1-1.0 Urobilinogen) [facility] [id number] 05:30:00 Test Item Value Reference Range Interpretation Comments UA Color (test code = UA Color) [facility] AND [id number] 05:30:00 Test Item Value Reference Range Interpretation Comments UA Bacteria (test code = UA Many /HPF Bacteria) [facility] [id number] 05:30:00 Test Item Value Reference Range Interpretation Comments UA Mucus (test code = UA Mucus) Many /LPF [facility] [id number] 05:30:00 Test Item Value Reference Range Interpretation Comments UA Leuk Est (test code Large *ABN*(09/17/15 = UA Leuk Est) 11:30 PM) [facility] [id number] 05:30:00 Test Item Value Reference Range Interpretation Comments UA Sq Epi (test code = UA Sq Epi) Many [facility]LPF [facility] [id number] 05:30:00 Test Item Value Reference Range Interpretation Comments UA Nitrite (test code Negative (09/17/15 11:30 = UA Nitrite) PM) [facility] AND [id number] 05:30:00 Test Item Value Reference Range Interpretation Comments UA WBC (test code = 16 See_Comment [Automa arvind message] The UA WBC) system which ge nerated this result transmit arvind reference range : <=5. The reference range was not used to interpr et this result as mario l/abnormal. [facility] AND [id number] 05:30:00 Test Item Value Reference Range Interpretation Comments UA RBC (test code = 5 See_Comment [Automa arvind message] The UA RBC) system which ge nerated this result transmit arvind reference range : <=2. The reference range was not used to interpr et this result as mario l/abnormal. [facility] AND [id number] 05:30:00 Test Item Value Reference Range Interpretation Comments UA Bili (test code = Negative *NA*(09/17/15 UA Bili) 11:30 PM) [facility] AND [id number] 05:30:00 Test Item Value Reference Range Interpretation Comments UA Blood (test code = Negative (09/17/15 11:30 UA Blood) PM) [facility] AND [id number] 05:30:00 Test Item Value Reference Range Interpretation Comments UA Glucose (test code = UA Negative mg/dL Glucose) [facility] AND [id number] 05:30:00 Test Item Value Reference Range Interpretation Comments UA Ketones (test code = UA Trace mg/dL Ketones) [facility] AND [id number] 05:30:00 Test Item Value Reference Range Interpretation Comments UA Protein (test code = UA Protein) 30 mg/dL [facility] AND [id number] 05:30:00 Test Item Value Reference Range Interpretation Comments UA pH (test code = UA pH) 5.0 5.0-8.0 [facility] AND [id number] 05:30:00 Test Item Value Reference Range Interpretation Comments UA Spec Grav (test code = UA Spec Grav) 1.030 [facility] AND [id number] 05:30:00 Test Item Value Reference Range Interpretation Comments UA Turbidity (test code Marked *ABN*(09/17/15 = UA Turbidity) 11:30 PM) [facility] [id number] 05:30:00 Test Item Value Reference Range Interpretation Comments U Preg (test code = U Negative (09/17/15 11:30 Preg) PM) [facility] AND [id number] 05:30:00 Test Item Value Reference Range Interpretation Comments UA Urobilinogen (test code = UA <=1.0 mg/dL 0.1-1.0 Urobilinogen) [facility] AND [id number] 05:30:00 Test Item Value Reference Range Interpretation Comments UA Color (test code = UA Color) [facility] AND [id number] 05:30:00 Test Item Value Reference Range Interpretation Comments UA Bacteria (test code = UA Many /HPF Bacteria) [facility] [id number] 05:30:00 Test Item Value Reference Range Interpretation Comments UA Mucus (test code = UA Mucus) Many /LPF [facility] AND [id number] 05:30:00 Test Item Value Reference Range Interpretation Comments UA Leuk Est (test code Large *ABN*(09/17/15 = UA Leuk Est) 11:30 PM) [facility] AND [id number] 05:30:00 Test Item Value Reference Range Interpretation Comments UA Sq Epi (test code = UA Sq Epi) Many /LPF [facility] AND [id number] 05:30:00 Test Item Value Reference Range Interpretation Comments UA Nitrite (test code Negative (09/17/15 11:30 = UA Nitrite) PM) [facility] AND [id number] 05:30:00 Test Item Value Reference Range Interpretation Comments UA WBC (test code = 16 See_Comment [Automa arvind message] The UA WBC) system which ge nerated this result transmit arvind reference range : <=5. The reference range was not used to interpr et this result as mario l/abnormal. [facility] AND [id number] 05:30:00 Test Item Value Reference Range Interpretation Comments UA RBC (test code = 5 See_Comment [Automa arvind message] The UA RBC) system which ge nerated this result transmit arvind reference range : <=2. The reference range was not used to interpr et this result as mario l/abnormal. [facility] AND [id number] 05:30:00 Test Item Value Reference Range Interpretation Comments UA Bili (test code = Negative *NA*(09/17/15 UA Bili) 11:30 PM) [facility] AND [id number] 05:30:00 Test Item Value Reference Range Interpretation Comments UA Blood (test code = Negative (09/17/15 11:30 UA Blood) PM) [facility] AND [id number] 05:30:00 Test Item Value Reference Range Interpretation Comments UA Glucose (test code = UA Negative mg/dL Glucose) [facility] AND [id number] 05:30:00 Test Item Value Reference Range Interpretation Comments UA Ketones (test code = UA Trace mg/dL Ketones) [facility] AND [id number] 05:30:00 Test Item Value Reference Range Interpretation Comments UA Protein (test code = UA Protein) 30 mg/dL [facility] AND [id number] 05:30:00 Test Item Value Reference Range Interpretation Comments UA pH (test code = UA pH) 5.0 5.0-8.0 [facility] AND [id number] 05:30:00 Test Item Value Reference Range Interpretation Comments UA Spec Grav (test code = UA Spec Grav) 1.030 [facility] AND [id number] 05:30:00 Test Item Value Reference Range Interpretation Comments UA Turbidity (test code Marked *ABN*(09/17/15 = UA Turbidity) 11:30 PM) [facility] [id number] 05:30:00 Test Item Value Reference Range Interpretation Comments U Preg (test code = U Negative (09/17/15 11:30 Preg) PM) [facility] AND [id number] 05:30:00 Test Item Value Reference Range Interpretation Comments UA Urobilinogen (test code = UA <=1.0 mg/dL 0.1-1.0 Urobilinogen) [facility] AND [id number] 05:30:00 Test Item Value Reference Range Interpretation Comments UA Color (test code = UA Color) Marry [facility] AND [id number] 05:30:00 Test Item Value Reference Range Interpretation Comments UA Bacteria (test code = UA Many /HPF Bacteria) [facility] AND [id number] 05:30:00 Test Item Value Reference Range Interpretation Comments UA Mucus (test code = UA Mucus) Many /LPF [facility] AND [id number] 05:30:00 Test Item Value Reference Range Interpretation Comments UA Leuk Est (test code Large *ABN*(09/17/15 = UA Leuk Est) 11:30 PM) [facility] AND [id number] 05:30:00 Test Item Value Reference Range Interpretation Comments UA Sq Epi (test code = UA Sq Epi) Many /LPF [facility] AND [id number] 05:30:00 Test Item Value Reference Range Interpretation Comments UA Nitrite (test code Negative (09/17/15 11:30 = UA Nitrite) PM) [facility] AND [id number] 05:30:00 Test Item Value Reference Range Interpretation Comments UA WBC (test code = 16 See_Comment [Automa arvind message] The UA WBC) system which ge nerated this result transmit arvind reference range : <=5. The reference range was not used to interpr et this result as mario l/abnormal. [facility] AND [id number] 05:30:00 Test Item Value Reference Range Interpretation Comments UA RBC (test code = 5 See_Comment [Automa arvind message] The UA RBC) system which ge nerated this result transmit arvind reference range : <=2. The reference range was not used to interpr et this result as maroi l/abnormal. [facility] AND [id number] 05:30:00 Test Item Value Reference Range Interpretation Comments UA Bili (test code = Negative *NA*(09/17/15 UA Bili) 11:30 PM) [facility] AND [id number] 05:30:00 Test Item Value Reference Range Interpretation Comments UA Blood (test code = Negative (09/17/15 11:30 UA Blood) PM) [facility] AND [id number] 05:30:00 Test Item Value Reference Range Interpretation Comments UA Glucose (test code = UA Negative mg/dL Glucose) [facility] AND [id number] 05:30:00 Test Item Value Reference Range Interpretation Comments UA Ketones (test code = UA Trace mg/dL Ketones) [facility] [id number] 05:30:00 Test Item Value Reference Range Interpretation Comments UA Protein (test code = UA Protein) 30 mg/dL [facility] [id number] 05:30:00 Test Item Value Reference Range Interpretation Comments UA pH (test code = UA pH) 5.0 5.0-8.0 [facility] [id number] 05:30:00 Test Item Value Reference Range Interpretation Comments UA Spec Grav (test code = UA Spec Grav) 1.030 [facility] [id number] 05:30:00 Test Item Value Reference Range Interpretation Comments UA Turbidity (test code Marked *ABN*(09/17/15 = UA Turbidity) 11:30 PM) [facility] [id number] 05:30:00 Test Item Value Reference Range Interpretation Comments U Preg (test code = U Negative (09/17/15 11:30 Preg) PM) [facility] [id number] 05:30:00 Test Item Value Reference Range Interpretation Comments UA Urobilinogen (test code = UA <=1.0 mg/dL 0.1-1.0 Urobilinogen) [facility] [id number] 05:30:00 Test Item Value Reference Range Interpretation Comments UA Color (test code = UA Color) [facility] AND [id number] 05:30:00 Test Item Value Reference Range Interpretation Comments UA Bacteria (test code = UA Many /HPF Bacteria) [facility] [id number] 05:30:00 Test Item Value Reference Range Interpretation Comments UA Mucus (test code = UA Mucus) Many /LPF [facility] [id number] 05:30:00 Test Item Value Reference Range Interpretation Comments UA Leuk Est (test code Large *ABN*(09/17/15 = UA Leuk Est) 11:30 PM) [facility] [id number] 05:30:00 Test Item Value Reference Range Interpretation Comments UA Sq Epi (test code = UA Sq Epi) Many /LPF [facility] [id number] 05:30:00 Test Item Value Reference Range Interpretation Comments UA Nitrite (test code Negative (09/17/15 11:30 = UA Nitrite) PM) [facility] AND [id number] 05:30:00 Test Item Value Reference Range Interpretation Comments UA WBC (test code = 16 See_Comment [Automa arvind message] The UA WBC) system which ge nerated this result transmit arvind reference range : <=5. The reference range was not used to interpr et this result as mario l/abnormal. [facility] AND [id number] 05:30:00 Test Item Value Reference Range Interpretation Comments UA RBC (test code = 5 See_Comment [Automa arvind message] The UA RBC) system which ge nerated this result transmit arvind reference range : <=2. The reference range was not used to interpr et this result as mario l/abnormal. [facility] AND [id number] 05:30:00 Test Item Value Reference Range Interpretation Comments UA Bili (test code = Negative *NA*(09/17/15 UA Bili) 11:30 PM) [facility] AND [id number] 05:30:00 Test Item Value Reference Range Interpretation Comments UA Blood (test code = Negative (09/17/15 11:30 UA Blood) PM) [facility] AND [id number] 05:30:00 Test Item Value Reference Range Interpretation Comments UA Glucose (test code = UA Negative mg/dL Glucose) [facility] AND [id number] 05:30:00 Test Item Value Reference Range Interpretation Comments UA Ketones (test code = UA Trace mg/dL Ketones) [facility] AND [id number] 05:30:00 Test Item Value Reference Range Interpretation Comments UA Protein (test code = UA Protein) 30 mg/dL [facility] AND [id number] 05:30:00 Test Item Value Reference Range Interpretation Comments UA pH (test code = UA pH) 5.0 5.0-8.0 [facility] AND [id number] 05:30:00 Test Item Value Reference Range Interpretation Comments UA Spec Grav (test code = UA Spec Grav) 1.030 [facility] AND [id number] 05:30:00 Test Item Value Reference Range Interpretation Comments UA Turbidity (test code Marked *ABN*(09/17/15 = UA Turbidity) 11:30 PM) [id number] 05:30:00 Test Item Value Reference Range Interpretation Comments U Preg (test code = U Negative (09/17/15 11:30 Preg) PM) [facility] AND [id number] 05:30:00 Test Item Value Reference Range Interpretation Comments UA Urobilinogen (test code = UA <=1.0 mg/dL 0.1-1.0 Urobilinogen) [facility] AND [id number] 05:30:00 Test Item Value Reference Range Interpretation Comments UA Color (test code = UA Color) [facility] AND [id number] 05:30:00 Test Item Value Reference Range Interpretation Comments UA Bacteria (test code = UA Many /HPF Bacteria) [facility] AND [id number] 05:30:00 Test Item Value Reference Range Interpretation Comments UA Mucus (test code = UA Mucus) Many /LPF [facility] AND [id number] 05:30:00 Test Item Value Reference Range Interpretation Comments UA Leuk Est (test code Large *ABN*(09/17/15 = UA Leuk Est) 11:30 PM) [facility] AND [id number] 05:30:00 Test Item Value Reference Range Interpretation Comments UA Sq Epi (test code = UA Sq Epi) Many /LPF [facility] AND [id number] 05:30:00 Test Item Value Reference Range Interpretation Comments UA Nitrite (test code Negative (09/17/15 11:30 = UA Nitrite) PM) [facility] AND [id number] 05:30:00 Test Item Value Reference Range Interpretation Comments UA WBC (test code = 16 See_Comment [Automa arvind message] The UA WBC) system which ge nerated this result transmit arvind reference range : <=5. The reference range was not used to interpr et this result as mario l/abnormal. [facility] AND [id number] 05:30:00 Test Item Value Reference Range Interpretation Comments UA RBC (test code = 5 See_Comment [Automa arvind message] The UA RBC) system which ge nerated this result transmit arvind reference range : <=2. The reference range was not used to interpr et this result as mario l/abnormal. [facility] AND [id number] 05:30:00 Test Item Value Reference Range Interpretation Comments UA Bili (test code = Negative *NA*(09/17/15 UA Bili) 11:30 PM) [facility] AND [id number] 05:30:00 Test Item Value Reference Range Interpretation Comments UA Blood (test code = Negative (09/17/15 11:30 UA Blood) PM) [facility] AND [id number] 05:30:00 Test Item Value Reference Range Interpretation Comments UA Glucose (test code = UA Negative mg/dL Glucose) [facility] AND [id number] 05:30:00 Test Item Value Reference Range Interpretation Comments UA Ketones (test code = UA Trace mg/dL Ketones) [facility] AND [id number] 05:30:00 Test Item Value Reference Range Interpretation Comments UA Protein (test code = UA Protein) 30 mg/dL [facility] AND [id number] 05:30:00 Test Item Value Reference Range Interpretation Comments UA pH (test code = UA pH) 5.0 5.0-8.0 [facility] AND [id number] 05:30:00 Test Item Value Reference Range Interpretation Comments UA Spec Grav (test code = UA Spec Grav) 1.030 [facility] AND [id number] 05:30:00 Test Item Value Reference Range Interpretation Comments UA Turbidity (test code Marked *ABN*(09/17/15 = UA Turbidity) 11:30 PM) [facility] [id number] 05:30:00 Test Item Value Reference Range Interpretation Comments U Preg (test code = U Negative (09/17/15 11:30 Preg) PM) [facility] AND [id number] 05:30:00 Test Item Value Reference Range Interpretation Comments UA Urobilinogen (test code = UA <=1.0 mg/dL 0.1-1.0 Urobilinogen) [facility] AND [id number] 05:30:00 Test Item Value Reference Range Interpretation Comments UA Color (test code = UA Color) Marry [facility] AND [id number] 05:30:00 Test Item Value Reference Range Interpretation Comments UA Bacteria (test code = UA Many /HPF Bacteria) [facility] AND [id number] 05:30:00 Test Item Value Reference Range Interpretation Comments UA Mucus (test code = UA Mucus) Many /LPF [facility] AND [id number] 05:30:00 Test Item Value Reference Range Interpretation Comments UA Leuk Est (test code Large *ABN*(09/17/15 = UA Leuk Est) 11:30 PM) [facility] AND [id number] 05:30:00 Test Item Value Reference Range Interpretation Comments UA Sq Epi (test code = UA Sq Epi) Many /LPF [facility] AND [id number] 05:30:00 Test Item Value Reference Range Interpretation Comments UA Nitrite (test code Negative (09/17/15 11:30 = UA Nitrite) PM) [facility] AND [id number] 05:30:00 Test Item Value Reference Range Interpretation Comments UA WBC (test code = 16 See_Comment [Automa arvind message] The UA WBC) system which ge nerated this result transmit arvind reference range : <=5. The reference range was not used to interpr et this result as mario l/abnormal. [facility] AND [id number] 05:30:00 Test Item Value Reference Range Interpretation Comments UA RBC (test code = 5 See_Comment [Automa arvind message] The UA RBC) system which ge nerated this result transmit arvind reference range : <=2. The reference range was not used to interpr et this result as mario l/abnormal. [facility] AND [id number] 05:30:00 Test Item Value Reference Range Interpretation Comments UA Bili (test code = Negative *NA*(09/17/15 UA Bili) 11:30 PM) [facility] AND [id number] 05:30:00 Test Item Value Reference Range Interpretation Comments UA Blood (test code = Negative (09/17/15 11:30 UA Blood) PM) [facility] AND [id number] 05:30:00 Test Item Value Reference Range Interpretation Comments UA Glucose (test code = UA Negative mg/dL Glucose) [facility] [id number] 05:30:00 Test Item Value Reference Range Interpretation Comments UA Ketones (test code = UA Trace mg/dL Ketones) [facility] [id number] 05:30:00 Test Item Value Reference Range Interpretation Comments UA Protein (test code = UA Protein) 30 mg/dL [facility] [id number] 05:30:00 Test Item Value Reference Range Interpretation Comments UA pH (test code = UA pH) 5.0 5.0-8.0 [facility] [id number] 05:30:00 Test Item Value Reference Range Interpretation Comments UA Spec Grav (test code = UA Spec Grav) 1.030 [facility] AND [id number] 05:30:00 Test Item Value Reference Range Interpretation Comments UA Turbidity (test code Marked *ABN*(09/17/15 = UA Turbidity) 11:30 PM) [facility] [id number] 05:30:00 Test Item Value Reference Range Interpretation Comments U Preg (test code = U Negative (09/17/15 11:30 Preg) PM) [facility] [id number] 02:01:00 Test Item Value Reference Range Interpretation Comments Lipase Lvl (test code = Lipase Lvl) 196 73-393 [facility] [id number] 02:01:00 Test Item Value Reference Range Interpretation Comments Amylase Lvl (test code = Amylase Lvl) 33 25-115 [facility] HospitalYzeesssLSTKMMILXBMS5950-75-76 02:01:00 Test Item Value Reference Range Interpretation Comments AGAP (test code = AGAP) 10.7 10.0-20.0 [facility][id number] 02:01:00 Test Item Value Reference Range Interpretation Comments A/G Ratio (test code = A/G Ratio) 1.2 0.7-1.6 [facility] CenterXvntknrQLPPHMBWRGFH7419-60-29 02:01:00 Test Item Value Reference Range Interpretation Comments Globulin (test code = Globulin) 3.1 2.0-4.0 [facility] Center[id number] 02:01:00 Test Item Value Reference Range Interpretation Comments B/C Ratio (test code = B/C Ratio) 13 6-25 [facility] CenterLvdcipdOLTIXOJWZOKU0051-24-58 02:01:00 Test Item Value Reference Range Interpretation Comments Total Protein (test code = Total 6.9 6.4-8.4 Protein) [facility] HospitalYruudemUQPQWASKGPCC8039-30-04 02:01:00 Test Item Value Reference Range Interpretation Comments Calcium Lvl (test code = Calcium Lvl) 9.0 8.5-10.5 [facility] HospitalWhpflhyETAWBOGLXRXW1868-01-45 02:01:00 Test Item Value Reference Range Interpretation Comments CO2 (test code = CO2) 26 24-32 [facility] HospitalJjwopexNGODBCHGWNUK9898-79-87 02:01:00 Test Item Value Reference Range Interpretation Comments eGFR (test code = eGFR) 110 [facility] HospitalRphcjiwRSWFIMJBQWCH4256-08-67 02:01:00 Test Item Value Reference Range Interpretation Comments Bili Total (test code = Bili Total) 0.3 0.2-1.3 [facility] HospitalEgiwkowRMQKRLIHQDSR0142-08-28 02:01:00 Test Item Value Reference Range Interpretation Comments Alk Phos (test code = Alk Phos) 84 39-136 [facility] HospitalObowogtZIGYHGLPEPFH3303-83-68 02:01:00 Test Item Value Reference Range Interpretation Comments AST (test code = AST) 17 See_Comment [Auto mated message] The system which ge nerated this result transmit arvind reference range : <=37. The reference range was not used to interpr et this result as mario l/abnormal. [facility] HospitalRmvgrbcNIAADDIETEZX3127-61-78 02:01:00 Test Item Value Reference Range Interpretation Comments ALT (test code = ALT) 42 See_Comment [Auto mated message] The system which ge nerated this result transmit arvind reference range : <=65. The reference range was not used to interpr et this result as mario l/abnormal. [facility] HospitalJvhxoicGDVQKBHIZJMS9819-78-99 02:01:00 Test Item Value Reference Range Interpretation Comments Albumin Lvl (test code = Albumin Lvl) 3.8 3.5-5.0 [facility] HospitalBitcukaTAXYGUQJDDLN6088-78-14 02:01:00 Test Item Value Reference Range Interpretation Comments Sodium Lvl (test code = Sodium Lvl) 139 135-145 [facility] HospitalOkjklgvUGJKAQXYOWFD6498-86-96 02:01:00 Test Item Value Reference Range Interpretation Comments Chloride Lvl (test code = Chloride Lvl) 106 95-109 [facility] HospitalPslslhyLERLJIBCJIED8835-75-61 02:01:00 Test Item Value Reference Range Interpretation Comments Potassium Lvl (test code = Potassium 3.7 3.5-5.1 Lvl) [facility] HospitalFwvmsywQYWHWKIKXTLZ2147-59-35 02:01:00 Test Item Value Reference Range Interpretation Comments BUN (test code = BUN) 10 7-22 [facility] HospitalMgwinbiNNASBOGHFDRR2276-38-38 02:01:00 Test Item Value Reference Range Interpretation Comments Glucose Lvl (test code = Glucose Lvl) 88 70-99 [facility] HospitalDlzfxgnEBYYIPRBPXEX8134-20-34 02:01:00 Test Item Value Reference Range Interpretation Comments Creatinine Lvl (test code = Creatinine 0.76 0.50-1.40 Lvl) [facility] CenterAnxkynyWZZSRAFKFA6285-80-71 02:01:00 Test Item Value Reference Range Interpretation Comments Segs-Bands # (test code = Segs-Bands #) 5.4 1.5-8.1 [facility] CenterUribjprFMMPUBNMPO2210-36-33 02:01:00 Test Item Value Reference Range Interpretation Comments Basophils (test code = 1.0 See_Comment [Aut omated message] The Basophils) system which ge nerated this result tra nsmitted reference range : <=1.0. The reference r kat was not used to int erpret this result as normal/abnormal . [facility] CenterCxxkjtwJOAPOMCLDY9132-22-50 02:01:00 Test Item Value Reference Range Interpretation Comments Monocytes # (test code 0.7 See_Comment [Aut omated message] The = Monocytes #) system which generated this result tra nsmitted reference range : <=0.8. The reference r kat was not used to int erpret this result as normal/abnormal . [facility] CenterGyybfcbNCXROCIGQI1849-03-40 02:01:00 Test Item Value Reference Range Interpretation Comments Lymphocytes (test code = Lymphocytes) 35.1 20.0-40.0 [facility] CenterZfdfnvqMPXGXGQSTO5204-63-22 02:01:00 Test Item Value Reference Range Interpretation Comments Lymphocytes # (test code = Lymphocytes 3.5 1.0-5.5 #) [facility] CenterRogpawzBFOHYSKAVV4630-74-35 02:01:00 Test Item Value Reference Range Interpretation Comments Monocytes (test code = Monocytes) 6.7 2.0-12.0 [facility] CenterUaqsaksVYNVPABUIM3391-95-10 02:01:00 Test Item Value Reference Range Interpretation Comments Segs (test code = Segs) 54.8 45.0-75.0 [facility] CenterAfybsmuDPHPONDNHV8787-87-26 02:01:00 Test Item Value Reference Range Interpretation Comments Eosinophils (test code = 2.4 See_Comment [A utomated message] The Eosinophils) system which ge nerated this result tra nsmitted reference range : <=4.0. The reference r kat was not used to int erpret this result as normal/abnormal . [facility] CenterUpqvuavXLOKMUWZEO8152-54-88 02:01:00 Test Item Value Reference Range Interpretation Comments Basophils # (test code 0.1 See_Comment [Aut omated message] The = Basophils #) system which generated this result tra nsmitted reference range : <=0.2. The reference r kat was not used to int erpret this result as normal/abnormal . [facility] CenterZbkhcorKLWUXGAFSO5985-27-18 02:01:00 Test Item Value Reference Range Interpretation Comments Microcyte (test code = 1+ *ABN*(09/17/15 Microcyte) 8:01 PM) [facility] CenterCmlvppvFMXZENGEJB7764-52-79 02:01:00 Test Item Value Reference Range Interpretation Comments Eosinophils # (test code 0.2 See_Comment [A utomated message] The = Eosinophils #) system whic h generated this result tra nsmitted reference range : <=0.5. The reference r kat was not used to int erpret this result as normal/abnormal . [facility] CenterRjbbpqpQXRMMHGRDA6127-10-41 02:01:00 Test Item Value Reference Range Interpretation Comments MPV (test code = MPV) 10.0 7.4-10.4 [facility] CenterOacwhqoYLAYAMSQAN9287-30-10 02:01:00 Test Item Value Reference Range Interpretation Comments RDW (test code = RDW) 16.9 11.5-14.5 [facility] CenterOdfjvxxOLWBMQRNVR8352-12-79 02:01:00 Test Item Value Reference Range Interpretation Comments Platelet (test code = Platelet) 208 133-450 [facility] CenterZooxesqHFVRECMAJX3307-02-64 02:01:00 Test Item Value Reference Range Interpretation Comments MCV (test code = MCV) 77.9 80.0-98.0 [facility] CenterAfgbskkTCILSLQMBL6566-50-52 02:01:00 Test Item Value Reference Range Interpretation Comments MCH (test code = MCH) 24.2 pg 27.0-31.0 [facility] CenterXxintrzCVHYDVVHXC4933-49-32 02:01:00 Test Item Value Reference Range Interpretation Comments MCHC (test code = MCHC) 31.1 32.0-36.0 [facility] CenterKfxopqcPGIDAOGVGX2372-53-97 02:01:00 Test Item Value Reference Range Interpretation Comments Hgb (test code = Hgb) 13.3 12.0-16.0 [facility] CenterSrboluxSEGIEZYAAP5887-74-04 02:01:00 Test Item Value Reference Range Interpretation Comments Hct (test code = Hct) 42.6 36.0-48.0 [facility] CenterLxkxdhjAGRBOWMPND1317-86-73 02:01:00 Test Item Value Reference Range Interpretation Comments WBC (test code = WBC) 9.9 3.7-10.4 [facility] CenterZykmxmjQIWOYILNCI3129-80-70 02:01:00 Test Item Value Reference Range Interpretation Comments RBC (test code = RBC) 5.47 4.20-5.40 [facility]CHE[facility] GBOOW4411-56-59 02:01:00 Test Item Value Reference Range Interpretation Comments Lipase Lvl (test code = Lipase Lvl) 196 73-393 [facility] HSVOB5119-24-40 02:01:00 Test Item Value Reference Range Interpretation Comments Amylase Lvl (test code = Amylase Lvl) 33 25-115 [facility] HospitalZabtzdmSHVBYOOTQAUN3331-07-77 02:01:00 Test Item Value Reference Range Interpretation Comments AGAP (test code = AGAP) 10.7 10.0-20.0 [facility] HospitalVxrepbtZPVOSTMPKCVK6191-50-66 02:01:00 Test Item Value Reference Range Interpretation Comments A/G Ratio (test code = A/G Ratio) 1.2 0.7-1.6 [facility] HospitalNetoehbCPPBNOAFHMDM1332-71-59 02:01:00 Test Item Value Reference Range Interpretation Comments Globulin (test code = Globulin) 3.1 2.0-4.0 [facility] HospitalGczqrbiDMTMVCHHBQUC8187-66-87 02:01:00 Test Item Value Reference Range Interpretation Comments B/C Ratio (test code = B/C Ratio) 13 6-25 [facility] HospitalRfpsvuwOWRCZZWMZIXO7643-98-69 02:01:00 Test Item Value Reference Range Interpretation Comments Total Protein (test code = Total 6.9 6.4-8.4 Protein) [facility] HospitalYkbjnigSCRFJISULFMN4471-37-28 02:01:00 Test Item Value Reference Range Interpretation Comments Calcium Lvl (test code = Calcium Lvl) 9.0 8.5-10.5 [facility] HospitalVjzlwjgITHDUOGLKLOC8452-46-52 02:01:00 Test Item Value Reference Range Interpretation Comments CO2 (test code = CO2) 26 24-32 [facility] HospitalVgdyxemVQULDHIOHBKA5847-78-81 02:01:00 Test Item Value Reference Range Interpretation Comments eGFR (test code = eGFR) 110 [facility] HospitalEibljkgEPEWVUAUHRKL7218-30-83 02:01:00 Test Item Value Reference Range Interpretation Comments Bili Total (test code = Bili Total) 0.3 0.2-1.3 [facility] HospitalDeidlwcUXVGCAIPFOWG0065-04-12 02:01:00 Test Item Value Reference Range Interpretation Comments Alk Phos (test code = Alk Phos) 84 39-136 [facility] HospitalPcfrdkiYHXSPFIURMRE2413-85-19 02:01:00 Test Item Value Reference Range Interpretation Comments AST (test code = AST) 17 See_Comment [Auto mated message] The system which ge nerated this result transmit arvind reference range : <=37. The reference range was not used to interpr et this result as mario l/abnormal. [facility] HospitalDfaoglrZEGACCNQZVEZ0485-43-17 02:01:00 Test Item Value Reference Range Interpretation Comments ALT (test code = ALT) 42 See_Comment [Auto mated message] The system which ge nerated this result transmit arvind reference range : <=65. The reference range was not used to interpr et this result as mario l/abnormal. [facility] HospitalXacujnnQGLBGBCXTVZE9864-93-49 02:01:00 Test Item Value Reference Range Interpretation Comments Albumin Lvl (test code = Albumin Lvl) 3.8 3.5-5.0 [facility] HospitalXujnesrHIPRUVYYZFFP7593-82-01 02:01:00 Test Item Value Reference Range Interpretation Comments Sodium Lvl (test code = Sodium Lvl) 139 135-145 [facility] HospitalJbljbihEBGOUCTFPFNK1213-93-72 02:01:00 Test Item Value Reference Range Interpretation Comments Chloride Lvl (test code = Chloride Lvl) 106 95-109 [facility] HospitalZnzbsxvZKYEWCLLGUVP0252-09-25 02:01:00 Test Item Value Reference Range Interpretation Comments Potassium Lvl (test code = Potassium 3.7 3.5-5.1 Lvl) [facility] HospitalMuaraudVBQDYYNJTDAX1378-96-64 02:01:00 Test Item Value Reference Range Interpretation Comments BUN (test code = BUN) 10 7-22 [facility] HospitalWhmqfbvVEENLTUTWIFI6018-36-24 02:01:00 Test Item Value Reference Range Interpretation Comments Glucose Lvl (test code = Glucose Lvl) 88 70-99 [facility] HospitalXepjowdKQHNXOEKHUNP2090-35-28 02:01:00 Test Item Value Reference Range Interpretation Comments Creatinine Lvl (test code = Creatinine 0.76 0.50-1.40 Lvl) [facility] CenterWnaohpiZFCOSOIYKO5834-79-82 02:01:00 Test Item Value Reference Range Interpretation Comments Segs-Bands # (test code = Segs-Bands #) 5.4 1.5-8.1 [facility] CenterWoqlhinEQSXGEZQNJ8566-40-07 02:01:00 Test Item Value Reference Range Interpretation Comments Basophils (test code = 1.0 See_Comment [Aut omated message] The Basophils) system which ge nerated this result tra nsmitted reference range : <=1.0. The reference r kat was not used to int erpret this result as normal/abnormal . [facility] CenterJovdqavJSODSRBOTO0857-21-26 02:01:00 Test Item Value Reference Range Interpretation Comments Monocytes # (test code 0.7 See_Comment [Aut omated message] The = Monocytes #) system which generated this result tra nsmitted reference range : <=0.8. The reference r kat was not used to int erpret this result as normal/abnormal . [facility] CenterChclklzJWVKWJOVJG0999-61-03 02:01:00 Test Item Value Reference Range Interpretation Comments Lymphocytes (test code = Lymphocytes) 35.1 20.0-40.0 [facility] CenterKcpnkxiSQRVOUKYHS5449-23-24 02:01:00 Test Item Value Reference Range Interpretation Comments Lymphocytes # (test code = Lymphocytes 3.5 1.0-5.5 #) [facility] CenterUhuufuvDSYWUAIPUI4781-21-83 02:01:00 Test Item Value Reference Range Interpretation Comments Monocytes (test code = Monocytes) 6.7 2.0-12.0 [facility] CenterCnkarjxBBTYFHQAJH3840-35-89 02:01:00 Test Item Value Reference Range Interpretation Comments Segs (test code = Segs) 54.8 45.0-75.0 [facility] CenterVvukfceKQSDWAYVYB2486-49-58 02:01:00 Test Item Value Reference Range Interpretation Comments Eosinophils (test code = 2.4 See_Comment [A utomated message] The Eosinophils) system which ge nerated this result tra nsmitted reference range : <=4.0. The reference r kat was not used to int erpret this result as normal/abnormal . [facility] CenterFodwhmdIVBWGSGQWG4229-53-22 02:01:00 Test Item Value Reference Range Interpretation Comments Basophils # (test code 0.1 See_Comment [Aut omated message] The = Basophils #) system which generated this result tra nsmitted reference range : <=0.2. The reference r kat was not used to int erpret this result as normal/abnormal . [facility] CenterUqzccspOSGGVYKEYZ2833-11-36 02:01:00 Test Item Value Reference Range Interpretation Comments Microcyte (test code = 1+ *ABN*(09/17/15 Microcyte) 8:01 PM) [facility] CenterJjjkwpkPTAWMKSDEE2760-26-19 02:01:00 Test Item Value Reference Range Interpretation Comments Eosinophils # (test code 0.2 See_Comment [A utomated message] The = Eosinophils #) system whic h generated this result tra nsmitted reference range : <=0.5. The reference r kat was not used to int erpret this result as normal/abnormal . [facility] CenterPwcphmjSEGSSCGHPS6124-34-84 02:01:00 Test Item Value Reference Range Interpretation Comments MPV (test code = MPV) 10.0 7.4-10.4 [facility] CenterLfaggmiBHERXCZHJD1723-69-38 02:01:00 Test Item Value Reference Range Interpretation Comments RDW (test code = RDW) 16.9 11.5-14.5 [facility] CenterUmexucjQLVZBCAKQG8973-98-91 02:01:00 Test Item Value Reference Range Interpretation Comments Platelet (test code = Platelet) 208 133-450 [facility] CenterDpthhooICJXMOIIBV5655-61-65 02:01:00 Test Item Value Reference Range Interpretation Comments MCV (test code = MCV) 77.9 80.0-98.0 [facility] CenterVrrfrbzHUNNBNPYOS1815-51-04 02:01:00 Test Item Value Reference Range Interpretation Comments MCH (test code = MCH) 24.2 pg 27.0-31.0 [facility]EzpyqmdKWKJOHNEEO2852-88-12 02:01:00 Test Item Value Reference Range Interpretation Comments MCHC (test code = MCHC) 31.1 32.0-36.0 [facility] CenterMvjeivsJWXFVTHIPG8463-01-28 02:01:00 Test Item Value Reference Range Interpretation Comments Hgb (test code = Hgb) 13.3 12.0-16.0 [facility] CenterFcmguqqLWJDMMSYGF4445-66-12 02:01:00 Test Item Value Reference Range Interpretation Comments Hct (test code = Hct) 42.6 36.0-48.0 [facility] CenterBhsrdheMIMKPOAARZ6257-12-32 02:01:00 Test Item Value Reference Range Interpretation Comments WBC (test code = WBC) 9.9 3.7-10.4 [facility] CenterCatjshtSOZFJQUKWP5594-19-43 02:01:00 Test Item Value Reference Range Interpretation Comments RBC (test code = RBC) 5.47 4.20-5.40 [facility]2016-01-20 02:01:00 Test Item Value Reference Range Interpretation Comments Lipase Lvl (test code = Lipase Lvl) 196 73-393 [facility] JZTSY5014-70-30 02:01:00 Test Item Value Reference Range Interpretation Comments Amylase Lvl (test code = Amylase Lvl) 33 25-115 [facility]VpooxmwHWPSTNVNYXXN1682-06-52 02:01:00 Test Item Value Reference Range Interpretation Comments AGAP (test code = AGAP) 10.7 10.0-20.0 [facility] HospitalYjmhbkxMWUSGPBSFEYI6264-72-30 02:01:00 Test Item Value Reference Range Interpretation Comments A/G Ratio (test code = A/G Ratio) 1.2 0.7-1.6 [facility] HospitalQwjcosrXAFVOZRZNOVJ8810-29-98 02:01:00 Test Item Value Reference Range Interpretation Comments Globulin (test code = Globulin) 3.1 2.0-4.0 [facility] HospitalOpjocyiKTZIUPPNBKPE5119-16-46 02:01:00 Test Item Value Reference Range Interpretation Comments B/C Ratio (test code = B/C Ratio) 13 6-25 [facility] HospitalWwemmxoAWIHAUXMHLOM4081-20-17 02:01:00 Test Item Value Reference Range Interpretation Comments Total Protein (test code = Total 6.9 6.4-8.4 Protein) [facility] HospitalGhbyzkyVYHOTETKOYLI9713-54-65 02:01:00 Test Item Value Reference Range Interpretation Comments Calcium Lvl (test code = Calcium Lvl) 9.0 8.5-10.5 [facility] HospitalSnzroxiIQORGLLHMBNB5341-01-21 02:01:00 Test Item Value Reference Range Interpretation Comments CO2 (test code = CO2) 26 24-32 [facility] HospitalGwbzamePISEOWDONJCY6524-05-95 02:01:00 Test Item Value Reference Range Interpretation Comments eGFR (test code = eGFR) 110 [facility] HospitalIzsdecsOXOGNDDVPFBL6670-25-49 02:01:00 Test Item Value Reference Range Interpretation Comments Bili Total (test code = Bili Total) 0.3 0.2-1.3 [facility] HospitalSxfcbsbNESYWMOUWFXP0990-79-38 02:01:00 Test Item Value Reference Range Interpretation Comments Alk Phos (test code = Alk Phos) 84 39-136 [facility] HospitalPqhbmgqVTVEBNADXZAZ3005-21-45 02:01:00 Test Item Value Reference Range Interpretation Comments AST (test code = AST) 17 See_Comment [Auto mated message] The system which ge nerated this result transmit arvind reference range : <=37. The reference range was not used to interpr et this result as mario l/abnormal. [facility] HospitalXrlsoirBIVKKCRTWSYE8811-33-43 02:01:00 Test Item Value Reference Range Interpretation Comments ALT (test code = ALT) 42 See_Comment [Auto mated message] The system which ge nerated this result transmit arvind reference range : <=65. The reference range was not used to interpr et this result as mario l/abnormal. [facility] HospitalFxpuirnFNAUZXKPTEEU4854-59-83 02:01:00 Test Item Value Reference Range Interpretation Comments Albumin Lvl (test code = Albumin Lvl) 3.8 3.5-5.0 [facility] HospitalAyvqxkdYBLJDXQYCJTV6443-38-15 02:01:00 Test Item Value Reference Range Interpretation Comments Sodium Lvl (test code = Sodium Lvl) 139 135-145 [facility] HospitalMcogbpjZFNCBLDIZIZE8965-89-35 02:01:00 Test Item Value Reference Range Interpretation Comments Chloride Lvl (test code = Chloride Lvl) 106 95-109 [facility] HospitalQqlpromHMXQQIHZZLGJ5575-63-48 02:01:00 Test Item Value Reference Range Interpretation Comments Potassium Lvl (test code = Potassium 3.7 3.5-5.1 Lvl) [facility] HospitalQcrbdbyZSKRJFEQAKBN2039-59-87 02:01:00 Test Item Value Reference Range Interpretation Comments BUN (test code = BUN) 10 7-22 [facility] HospitalYznuiqqOQTKJDJRCDPB7059-37-77 02:01:00 Test Item Value Reference Range Interpretation Comments Glucose Lvl (test code = Glucose Lvl) 88 70-99 [facility] HospitalJrcjebcKZYZCIOGFMUZ7239-26-88 02:01:00 Test Item Value Reference Range Interpretation Comments Creatinine Lvl (test code = Creatinine 0.76 0.50-1.40 Lvl) [facility] CenterKsvglgwGAKCVFAIYH4199-55-19 02:01:00 Test Item Value Reference Range Interpretation Comments Segs-Bands # (test code = Segs-Bands #) 5.4 1.5-8.1 [facility] CenterYqwcwwuHZIXUWGIVX7817-71-36 02:01:00 Test Item Value Reference Range Interpretation Comments Basophils (test code = 1.0 See_Comment [Aut omated message] The Basophils) system which ge nerated this result tra nsmitted reference range : <=1.0. The reference r kat was not used to int erpret this result as normal/abnormal . [facility] CenterJbxrimoPVUIFCTMSG0344-57-25 02:01:00 Test Item Value Reference Range Interpretation Comments Monocytes # (test code 0.7 See_Comment [Aut omated message] The = Monocytes #) system which generated this result tra nsmitted reference range : <=0.8. The reference r kat was not used to int erpret this result as normal/abnormal . [facility] CenterUvdmowfQPCESMYEFQ0807-31-33 02:01:00 Test Item Value Reference Range Interpretation Comments Lymphocytes (test code = Lymphocytes) 35.1 20.0-40.0 [facility] CenterFpljdtnBTXOJCXLYA3873-95-69 02:01:00 Test Item Value Reference Range Interpretation Comments Lymphocytes # (test code = Lymphocytes 3.5 1.0-5.5 #) [facility] CenterIfgcysqJPLGSQSOZQ3745-78-24 02:01:00 Test Item Value Reference Range Interpretation Comments Monocytes (test code = Monocytes) 6.7 2.0-12.0 [facility] CenterOspwycgMAIZQFIBID4280-74-78 02:01:00 Test Item Value Reference Range Interpretation Comments Segs (test code = Segs) 54.8 45.0-75.0 [facility] CenterCmpbgozERAKZMPDPV9595-27-21 02:01:00 Test Item Value Reference Range Interpretation Comments Eosinophils (test code = 2.4 See_Comment [A utomated message] The Eosinophils) system which ge nerated this result tra nsmitted reference range : <=4.0. The reference r kat was not used to int erpret this result as normal/abnormal . [facility] CenterAnccbbqNAGCEQGNEB4037-59-31 02:01:00 Test Item Value Reference Range Interpretation Comments Basophils # (test code 0.1 See_Comment [Aut omated message] The = Basophils #) system which generated this result tra nsmitted reference range : <=0.2. The reference r kat was not used to int erpret this result as normal/abnormal . [facility] CenterVragxahRUHXEPTJWD4116-34-37 02:01:00 Test Item Value Reference Range Interpretation Comments Microcyte (test code = 1+ *ABN*(09/17/15 Microcyte) 8:01 PM) [facility] CenterVjhbgvsZBRFIZUCOA3071-52-18 02:01:00 Test Item Value Reference Range Interpretation Comments Eosinophils # (test code 0.2 See_Comment [A utomated message] The = Eosinophils #) system whic h generated this result tra nsmitted reference range : <=0.5. The reference r kat was not used to int erpret this result as normal/abnormal . [facility] CenterWplognkETHETSQDMQ9374-55-80 02:01:00 Test Item Value Reference Range Interpretation Comments MPV (test code = MPV) 10.0 7.4-10.4 [facility] CenterXzkkbeuKMUYNGOOYR3966-54-59 02:01:00 Test Item Value Reference Range Interpretation Comments RDW (test code = RDW) 16.9 11.5-14.5 [facility] CenterBaotdlnIOIWCANFPT6717-20-51 02:01:00 Test Item Value Reference Range Interpretation Comments Platelet (test code = Platelet) 208 133-450 [facility] CenterOcjghtsEKWDNPSDOF0144-67-12 02:01:00 Test Item Value Reference Range Interpretation Comments MCV (test code = MCV) 77.9 80.0-98.0 [facility] CenterArflrqnZXLCSCTDWH4170-83-11 02:01:00 Test Item Value Reference Range Interpretation Comments MCH (test code = MCH) 24.2 pg 27.0-31.0 [facility]YjxtsevUTQCPNPSDH2594-21-52 02:01:00 Test Item Value Reference Range Interpretation Comments MCHC (test code = MCHC) 31.1 32.0-36.0 [facility] InstituteHedvcllJGHVGAEMFK3296-26-32 02:01:00 Test Item Value Reference Range Interpretation Comments Hgb (test code = Hgb) 13.3 12.0-16.0 [facility] CenterQpbfvehJOALJFFTYJ0397-81-79 02:01:00 Test Item Value Reference Range Interpretation Comments Hct (test code = Hct) 42.6 36.0-48.0 [facility] CenterPudlngwXSWJKWUFYM9145-75-18 02:01:00 Test Item Value Reference Range Interpretation Comments WBC (test code = WBC) 9.9 3.7-10.4 [facility] CenterKqcjnubOKKEAHXFQJ3940-73-64 02:01:00 Test Item Value Reference Range Interpretation Comments RBC (test code = RBC) 5.47 4.20-5.40 [facility]Y3608[facility]59[facility]67 02:01:00 Test Item Value Reference Range Interpretation Comments Lipase Lvl (test code = Lipase Lvl) 196 73-393 [facility]CHE[facility] ITZCF5875-29-81 02:01:00 Test Item Value Reference Range Interpretation Comments Amylase Lvl (test code = Amylase Lvl) 33 25-115 [facility] HospitalCddwjlgYMXPSWPTJWOV7876-20-82 02:01:00 Test Item Value Reference Range Interpretation Comments AGAP (test code = AGAP) 10.7 10.0-20.0 [facility] HospitalTfvrlwjIZUBNXBPSQTS1497-90-65 02:01:00 Test Item Value Reference Range Interpretation Comments A/G Ratio (test code = A/G Ratio) 1.2 0.7-1.6 [facility] HospitalWvmijarYPJMVFGSSCPL0842-41-85 02:01:00 Test Item Value Reference Range Interpretation Comments Globulin (test code = Globulin) 3.1 2.0-4.0 [facility] HospitalWkoyuavMMTWWWHXMYVZ1408-87-47 02:01:00 Test Item Value Reference Range Interpretation Comments B/C Ratio (test code = B/C Ratio) 13 6-25 [facility] HospitalEatoxeqDZCFIJJJFBQT0361-55-54 02:01:00 Test Item Value Reference Range Interpretation Comments Total Protein (test code = Total 6.9 6.4-8.4 Protein) [facility] HospitalAiqksmwHIVIVHRNXRDC9415-13-96 02:01:00 Test Item Value Reference Range Interpretation Comments Calcium Lvl (test code = Calcium Lvl) 9.0 8.5-10.5 [facility] HospitalDogloedVBDCUBAJNTBS3750-61-99 02:01:00 Test Item Value Reference Range Interpretation Comments CO2 (test code = CO2) 26 24-32 [facility] HospitalKjeunhyUGLWGKNOVHSH2568-85-46 02:01:00 Test Item Value Reference Range Interpretation Comments eGFR (test code = eGFR) 110 [facility] HospitalObhyaioWIHPCDXNPWDI7438-93-15 02:01:00 Test Item Value Reference Range Interpretation Comments Bili Total (test code = Bili Total) 0.3 0.2-1.3 [facility] HospitalPzxstzjYYIFTLWKQOLC7513-61-82 02:01:00 Test Item Value Reference Range Interpretation Comments Alk Phos (test code = Alk Phos) 84 39-136 [facility] HospitalKmcliapZJAEWCHRRMSV2863-40-49 02:01:00 Test Item Value Reference Range Interpretation Comments AST (test code = AST) 17 See_Comment [Auto mated message] The system which ge nerated this result transmit arvind reference range : <=37. The reference range was not used to interpr et this result as mario l/abnormal. [facility] HospitalEubnrwxNKNJMKHTXLQY2847-63-55 02:01:00 Test Item Value Reference Range Interpretation Comments ALT (test code = ALT) 42 See_Comment [Auto mated message] The system which ge nerated this result transmit arvind reference range : <=65. The reference range was not used to interpr et this result as mario l/abnormal. [facility] HospitalTrhvhfhTWASVUWDRCRQ7732-08-86 02:01:00 Test Item Value Reference Range Interpretation Comments Albumin Lvl (test code = Albumin Lvl) 3.8 3.5-5.0 [facility] HospitalAscxfxkHVQJYVQEYMXT1599-51-87 02:01:00 Test Item Value Reference Range Interpretation Comments Sodium Lvl (test code = Sodium Lvl) 139 135-145 [facility] HospitalRiewucpHRRQJLQRSLER8612-18-74 02:01:00 Test Item Value Reference Range Interpretation Comments Chloride Lvl (test code = Chloride Lvl) 106 95-109 [facility] HospitalWoujwkjYWWPSNRWQBOL4205-19-76 02:01:00 Test Item Value Reference Range Interpretation Comments Potassium Lvl (test code = Potassium 3.7 3.5-5.1 Lvl) [facility] HospitalJbizayzLCJISWKKRTCL9928-43-86 02:01:00 Test Item Value Reference Range Interpretation Comments BUN (test code = BUN) 10 7-22 [facility] HospitalKclyjefUMUBWYTHSBMI4818-11-54 02:01:00 Test Item Value Reference Range Interpretation Comments Glucose Lvl (test code = Glucose Lvl) 88 70-99 [facility] HospitalUgalzpsCDMWGDRBYTPW4667-05-47 02:01:00 Test Item Value Reference Range Interpretation Comments Creatinine Lvl (test code = Creatinine 0.76 0.50-1.40 Lvl) [facility] CenterXtitbagDSVHBTKZNR0492-92-07 02:01:00 Test Item Value Reference Range Interpretation Comments Segs-Bands # (test code = Segs-Bands #) 5.4 1.5-8.1 [facility] CenterHngrckhSUKZMRCKHM9446-09-66 02:01:00 Test Item Value Reference Range Interpretation Comments Basophils (test code = 1.0 See_Comment [Aut omated message] The Basophils) system which ge nerated this result tra nsmitted reference range : <=1.0. The reference r kat was not used to int erpret this result as normal/abnormal . [facility] CenterOxbsgdaGAFXYHAPAM6934-56-42 02:01:00 Test Item Value Reference Range Interpretation Comments Monocytes # (test code 0.7 See_Comment [Aut omated message] The = Monocytes #) system which generated this result tra nsmitted reference range : <=0.8. The reference r kat was not used to int erpret this result as normal/abnormal . [facility] CenterDxulkfcIWNPUJGIYR1094-84-27 02:01:00 Test Item Value Reference Range Interpretation Comments Lymphocytes (test code = Lymphocytes) 35.1 20.0-40.0 [facility] CenterLoupbuvUDBCGDWHJZ3967-34-17 02:01:00 Test Item Value Reference Range Interpretation Comments Lymphocytes # (test code = Lymphocytes 3.5 1.0-5.5 #) [facility] CenterBaxdvikYAZKHHTUVC4372-91-26 02:01:00 Test Item Value Reference Range Interpretation Comments Monocytes (test code = Monocytes) 6.7 2.0-12.0 [facility] CenterYdldluiDSJIFGAVDR5617-62-11 02:01:00 Test Item Value Reference Range Interpretation Comments Segs (test code = Segs) 54.8 45.0-75.0 [facility] CenterFuwykfwMAKJLCRXIO1754-97-39 02:01:00 Test Item Value Reference Range Interpretation Comments Eosinophils (test code = 2.4 See_Comment [A utomated message] The Eosinophils) system which ge nerated this result tra nsmitted reference range : <=4.0. The reference r kat was not used to int erpret this result as normal/abnormal . [facility] CenterBukrhunSHJXKIJEMY7363-82-71 02:01:00 Test Item Value Reference Range Interpretation Comments Basophils # (test code 0.1 See_Comment [Aut omated message] The = Basophils #) system which generated this result tra nsmitted reference range : <=0.2. The reference r kat was not used to int erpret this result as normal/abnormal . [facility] CenterGktbjhfFMSKKZXKUL8738-56-07 02:01:00 Test Item Value Reference Range Interpretation Comments Microcyte (test code = 1+ *ABN*(09/17/15 Microcyte) 8:01 PM) [facility] CenterDdginlhVMGVCVZPFW2235-30-35 02:01:00 Test Item Value Reference Range Interpretation Comments Eosinophils # (test code 0.2 See_Comment [A utomated message] The = Eosinophils #) system whic h generated this result tra nsmitted reference range : <=0.5. The reference r kat was not used to int erpret this result as normal/abnormal . [facility] CenterPjseuzmQVOIBEHMHO1340-16-25 02:01:00 Test Item Value Reference Range Interpretation Comments MPV (test code = MPV) 10.0 7.4-10.4 [facility] CenterZhgtssaBPQPMKKZEV1691-56-72 02:01:00 Test Item Value Reference Range Interpretation Comments RDW (test code = RDW) 16.9 11.5-14.5 [facility] CenterAberuggZHLUOBGKUS9703-95-91 02:01:00 Test Item Value Reference Range Interpretation Comments Platelet (test code = Platelet) 208 133-450 [facility] CenterXwxldvrRXAFVZWQJJ8103-01-67 02:01:00 Test Item Value Reference Range Interpretation Comments MCV (test code = MCV) 77.9 80.0-98.0 [facility] CenterRxusqtrHVXIDKHGPV3130-49-97 02:01:00 Test Item Value Reference Range Interpretation Comments MCH (test code = MCH) 24.2 pg 27.0-31.0 [facility]DlmiltbEDAZUETUQY3167-30-77 02:01:00 Test Item Value Reference Range Interpretation Comments MCHC (test code = MCHC) 31.1 32.0-36.0 [facility] InstituteMcrxamaZRSNSXHPMZ1634-71-63 02:01:00 Test Item Value Reference Range Interpretation Comments Hgb (test code = Hgb) 13.3 12.0-16.0 [facility] CenterIhurupuMMZIUWUSFM2173-25-43 02:01:00 Test Item Value Reference Range Interpretation Comments Hct (test code = Hct) 42.6 36.0-48.0 [facility] CenterPhuqrnyCMHULLMUAU0393-22-48 02:01:00 Test Item Value Reference Range Interpretation Comments WBC (test code = WBC) 9.9 3.7-10.4 [facility] CenterCtfsuqhJARRVBXBEH2996-00-59 02:01:00 Test Item Value Reference Range Interpretation Comments RBC (test code = RBC) 5.47 4.20-5.40 [facility]CHE[facility] USXCL2607-66-74 02:01:00 Test Item Value Reference Range Interpretation Comments Lipase Lvl (test code = Lipase Lvl) 196 73-393 [facility]CHE[facility] TFSSW3017-41-59 02:01:00 Test Item Value Reference Range Interpretation Comments Amylase Lvl (test code = Amylase Lvl) 33 25-115 [facility] HospitalSezygmhTKDEUQHFBXCD3295-76-80 02:01:00 Test Item Value Reference Range Interpretation Comments AGAP (test code = AGAP) 10.7 10.0-20.0 [facility] HospitalAvhtdcpBGQMSNVNTHMQ5228-95-94 02:01:00 Test Item Value Reference Range Interpretation Comments A/G Ratio (test code = A/G Ratio) 1.2 0.7-1.6 [facility] HospitalBikjepjIRSXOTBETULP2362-11-22 02:01:00 Test Item Value Reference Range Interpretation Comments Globulin (test code = Globulin) 3.1 2.0-4.0 [facility] HospitalAxfreblYHLICBJYMEYT9318-07-46 02:01:00 Test Item Value Reference Range Interpretation Comments B/C Ratio (test code = B/C Ratio) 13 6-25 [facility] HospitalNtdfwegXRJNEVMPYXYN6653-73-75 02:01:00 Test Item Value Reference Range Interpretation Comments Total Protein (test code = Total 6.9 6.4-8.4 Protein) [facility] HospitalWagfkrcQOJEGZVKUSRT7594-86-38 02:01:00 Test Item Value Reference Range Interpretation Comments Calcium Lvl (test code = Calcium Lvl) 9.0 8.5-10.5 [facility] HospitalSccjyhmLZRCSKCGRPHY5579-23-22 02:01:00 Test Item Value Reference Range Interpretation Comments CO2 (test code = CO2) 26 24-32 [facility] HospitalJpakukfUHEKVIFIGVFM0677-70-18 02:01:00 Test Item Value Reference Range Interpretation Comments eGFR (test code = eGFR) 110 [facility] HospitalUwtdcfbGMZBGMCUKZPW8571-58-12 02:01:00 Test Item Value Reference Range Interpretation Comments Bili Total (test code = Bili Total) 0.3 0.2-1.3 [facility] HospitalWgbmfhnMHVZUGNOZYRB3447-36-42 02:01:00 Test Item Value Reference Range Interpretation Comments Alk Phos (test code = Alk Phos) 84 39-136 [facility] HospitalCxgogjjAEHNGSKHQBQF0624-65-23 02:01:00 Test Item Value Reference Range Interpretation Comments AST (test code = AST) 17 See_Comment [Auto mated message] The system which ge nerated this result transmit arvind reference range : <=37. The reference range was not used to interpr et this result as mario l/abnormal. [facility] HospitalHkwhldgVZGWRMXDMEFC2744-98-83 02:01:00 Test Item Value Reference Range Interpretation Comments ALT (test code = ALT) 42 See_Comment [Auto mated message] The system which ge nerated this result transmit arvind reference range : <=65. The reference range was not used to interpr et this result as mario l/abnormal. [facility] HospitalFdamnreUKZDROLIMRAO9608-35-38 02:01:00 Test Item Value Reference Range Interpretation Comments Albumin Lvl (test code = Albumin Lvl) 3.8 3.5-5.0 [facility] HospitalWhadsfuXJQLPYMVBYJY7213-35-86 02:01:00 Test Item Value Reference Range Interpretation Comments Sodium Lvl (test code = Sodium Lvl) 139 135-145 [facility] HospitalLvrgumdPXDEJIMTUETL6652-82-57 02:01:00 Test Item Value Reference Range Interpretation Comments Chloride Lvl (test code = Chloride Lvl) 106 95-109 [facility] HospitalDgbgawnZGGAQQQEVREU4411-46-91 02:01:00 Test Item Value Reference Range Interpretation Comments Potassium Lvl (test code = Potassium 3.7 3.5-5.1 Lvl) [facility] HospitalLuoonqwLBKILSZEMPRA2772-08-25 02:01:00 Test Item Value Reference Range Interpretation Comments BUN (test code = BUN) 10 7-22 [facility] HospitalBhhxhuuTKPRNKUEVEAJ1583-55-41 02:01:00 Test Item Value Reference Range Interpretation Comments Glucose Lvl (test code = Glucose Lvl) 88 70-99 [facility] HospitalWvprypvQJHIBSJBQCKO5415-33-12 02:01:00 Test Item Value Reference Range Interpretation Comments Creatinine Lvl (test code = Creatinine 0.76 0.50-1.40 Lvl) [facility] CenterTymnlnhAXEGIETQNK5399-82-51 02:01:00 Test Item Value Reference Range Interpretation Comments Segs-Bands # (test code = Segs-Bands #) 5.4 1.5-8.1 [facility] CenterKvhzlufIHWNFQMZVF5311-02-51 02:01:00 Test Item Value Reference Range Interpretation Comments Basophils (test code = 1.0 See_Comment [Aut omated message] The Basophils) system which ge nerated this result tra nsmitted reference range : <=1.0. The reference r kat was not used to int erpret this result as normal/abnormal . [facility] CenterXwdinozCXHQJJQGBP0187-70-88 02:01:00 Test Item Value Reference Range Interpretation Comments Monocytes # (test code 0.7 See_Comment [Aut omated message] The = Monocytes #) system which generated this result tra nsmitted reference range : <=0.8. The reference r kat was not used to int erpret this result as normal/abnormal . [facility] CenterZemjvyyXHSZZUQTMW4262-11-55 02:01:00 Test Item Value Reference Range Interpretation Comments Lymphocytes (test code = Lymphocytes) 35.1 20.0-40.0 [facility] CenterGyebvncDLTGYEUKBC4123-59-17 02:01:00 Test Item Value Reference Range Interpretation Comments Lymphocytes # (test code = Lymphocytes 3.5 1.0-5.5 #) [facility] CenterDfoalplZLUMAGJNNZ9859-32-19 02:01:00 Test Item Value Reference Range Interpretation Comments Monocytes (test code = Monocytes) 6.7 2.0-12.0 [facility] CenterCpxllpdYLNZSGOZGX0758-29-42 02:01:00 Test Item Value Reference Range Interpretation Comments Segs (test code = Segs) 54.8 45.0-75.0 [facility] CenterObkttvpXWFLJUCRMP2861-11-85 02:01:00 Test Item Value Reference Range Interpretation Comments Eosinophils (test code = 2.4 See_Comment [A utomated message] The Eosinophils) system which ge nerated this result tra nsmitted reference range : <=4.0. The reference r kat was not used to int erpret this result as normal/abnormal . [facility] CenterYggxqhmHZSLXBGYPG6568-01-77 02:01:00 Test Item Value Reference Range Interpretation Comments Basophils # (test code 0.1 See_Comment [Aut omated message] The = Basophils #) system which generated this result tra nsmitted reference range : <=0.2. The reference r kat was not used to int erpret this result as normal/abnormal . [facility] CenterPcnsbfrCTSIQJUDZG2713-44-77 02:01:00 Test Item Value Reference Range Interpretation Comments Microcyte (test code = 1+ *ABN*(09/17/15 Microcyte) 8:01 PM) [facility] CenterEqlneifUQRAFXKQVR4568-77-71 02:01:00 Test Item Value Reference Range Interpretation Comments Eosinophils # (test code 0.2 See_Comment [A utomated message] The = Eosinophils #) system whic h generated this result tra nsmitted reference range : <=0.5. The reference r kat was not used to int erpret this result as normal/abnormal . [facility] CenterTluizliTYHXVNLISR8204-48-70 02:01:00 Test Item Value Reference Range Interpretation Comments MPV (test code = MPV) 10.0 7.4-10.4 [facility] CenterUljenmmXBMHSFXJRC8123-26-74 02:01:00 Test Item Value Reference Range Interpretation Comments RDW (test code = RDW) 16.9 11.5-14.5 [facility] CenterDsmyowtBXDYBPWJCC9485-55-57 02:01:00 Test Item Value Reference Range Interpretation Comments Platelet (test code = Platelet) 208 133-450 [facility] CenterFdxwjxlITZBIQKZBA7703-91-86 02:01:00 Test Item Value Reference Range Interpretation Comments MCV (test code = MCV) 77.9 80.0-98.0 [facility] CenterWxgdxtwZLQSAZMVAO8572-89-74 02:01:00 Test Item Value Reference Range Interpretation Comments MCH (test code = MCH) 24.2 pg 27.0-31.0 [facility]JuinmlnWGXLDVSMDU0843-03-83 02:01:00 Test Item Value Reference Range Interpretation Comments MCHC (test code = MCHC) 31.1 32.0-36.0 [facility] CenterUrdaezuTLMFONSALN8604-97-79 02:01:00 Test Item Value Reference Range Interpretation Comments Hgb (test code = Hgb) 13.3 12.0-16.0 [facility] CenterQpaadubKKZCATLQAS5874-17-34 02:01:00 Test Item Value Reference Range Interpretation Comments Hct (test code = Hct) 42.6 36.0-48.0 [facility] CenterXuosgaqNEFGHFBZSA6235-53-81 02:01:00 Test Item Value Reference Range Interpretation Comments WBC (test code = WBC) 9.9 3.7-10.4 [facility] CenterEwbcnenEEPEUDDCIK1355-53-05 02:01:00 Test Item Value Reference Range Interpretation Comments RBC (test code = RBC) 5.47 4.20-5.40 [facility] SBAFC7006-79-88 02:01:00 Test Item Value Reference Range Interpretation Comments Lipase Lvl (test code = Lipase Lvl) 196 73-393 [facility] IDDZG1697-50-75 02:01:00 Test Item Value Reference Range Interpretation Comments Amylase Lvl (test code = Amylase Lvl) 33 25-115 [facility] HospitalIbacqdmPFGIZPPYHBAV1102-70-57 02:01:00 Test Item Value Reference Range Interpretation Comments AGAP (test code = AGAP) 10.7 10.0-20.0 [facility] HospitalTsnphqlQSZDPPHUGGZY0563-38-51 02:01:00 Test Item Value Reference Range Interpretation Comments A/G Ratio (test code = A/G Ratio) 1.2 0.7-1.6 [facility] HospitalNionjuiGOAALWBYVORU0880-38-37 02:01:00 Test Item Value Reference Range Interpretation Comments Globulin (test code = Globulin) 3.1 2.0-4.0 [facility] HospitalEguwbqvKVRBDSDQSZRR6004-07-84 02:01:00 Test Item Value Reference Range Interpretation Comments B/C Ratio (test code = B/C Ratio) 13 6-25 [facility] HospitalQxbnpnwPTOZFRQBAVLQ8242-74-63 02:01:00 Test Item Value Reference Range Interpretation Comments Total Protein (test code = Total 6.9 6.4-8.4 Protein) [facility] HospitalLmqvwquBDJJGPVTRIJK4867-43-53 02:01:00 Test Item Value Reference Range Interpretation Comments Calcium Lvl (test code = Calcium Lvl) 9.0 8.5-10.5 [facility] HospitalAqdsdryGBKHOKLVKUGF6732-07-96 02:01:00 Test Item Value Reference Range Interpretation Comments CO2 (test code = CO2) 26 24-32 [facility] HospitalUzsgbrrZLSPBRXWXBTO6481-18-36 02:01:00 Test Item Value Reference Range Interpretation Comments eGFR (test code = eGFR) 110 [facility] HospitalOkjiljlHZTMNVCADJAJ2347-28-83 02:01:00 Test Item Value Reference Range Interpretation Comments Bili Total (test code = Bili Total) 0.3 0.2-1.3 [facility] HospitalOgzbvjvMEKLVITGAGUC0571-21-13 02:01:00 Test Item Value Reference Range Interpretation Comments Alk Phos (test code = Alk Phos) 84 39-136 [facility] HospitalRceiqheZHDNWYXMVAGF5216-15-39 02:01:00 Test Item Value Reference Range Interpretation Comments AST (test code = AST) 17 See_Comment [Auto mated message] The system which ge nerated this result transmit arvind reference range : <=37. The reference range was not used to interpr et this result as mario l/abnormal. [facility] HospitalQoouwpyJSOTAGKJUPVY1803-08-42 02:01:00 Test Item Value Reference Range Interpretation Comments ALT (test code = ALT) 42 See_Comment [Auto mated message] The system which ge nerated this result transmit arvind reference range : <=65. The reference range was not used to interpr et this result as mario l/abnormal. [facility] HospitalPihrudeOMLFGQLETZDF1741-38-36 02:01:00 Test Item Value Reference Range Interpretation Comments Albumin Lvl (test code = Albumin Lvl) 3.8 3.5-5.0 [facility] HospitalPwjgtyiSSOAPXAVACLM5171-80-58 02:01:00 Test Item Value Reference Range Interpretation Comments Sodium Lvl (test code = Sodium Lvl) 139 135-145 [facility] HospitalHoczqpbJGMBOQMAZNRO1668-02-66 02:01:00 Test Item Value Reference Range Interpretation Comments Chloride Lvl (test code = Chloride Lvl) 106 95-109 [facility] HospitalBfpopewLNLCYPURMTLT7426-62-32 02:01:00 Test Item Value Reference Range Interpretation Comments Potassium Lvl (test code = Potassium 3.7 3.5-5.1 Lvl) [facility] HospitalYlaejkhVJLXNAKZWBGS5364-55-20 02:01:00 Test Item Value Reference Range Interpretation Comments BUN (test code = BUN) 10 7-22 [facility] HospitalYqausjaJLTQMZEMHAEB7597-78-90 02:01:00 Test Item Value Reference Range Interpretation Comments Glucose Lvl (test code = Glucose Lvl) 88 70-99 [facility] HospitalIzvhootDRHWYKHOPKVO8390-03-01 02:01:00 Test Item Value Reference Range Interpretation Comments Creatinine Lvl (test code = Creatinine 0.76 0.50-1.40 Lvl) [facility] CenterPtmzndvHECFNKKRCK5455-32-58 02:01:00 Test Item Value Reference Range Interpretation Comments Segs-Bands # (test code = Segs-Bands #) 5.4 1.5-8.1 [facility] CenterSwzzaukFZOJNZIEEF3644-28-61 02:01:00 Test Item Value Reference Range Interpretation Comments Basophils (test code = 1.0 See_Comment [Aut omated message] The Basophils) system which ge nerated this result tra nsmitted reference range : <=1.0. The reference r kat was not used to int erpret this result as normal/abnormal . [facility] CenterObnvadoSDKJFQJCWU2973-70-16 02:01:00 Test Item Value Reference Range Interpretation Comments Monocytes # (test code 0.7 See_Comment [Aut omated message] The = Monocytes #) system which generated this result tra nsmitted reference range : <=0.8. The reference r kat was not used to int erpret this result as normal/abnormal . [facility] CenterBwxwhanYJCINLDERJ7246-67-42 02:01:00 Test Item Value Reference Range Interpretation Comments Lymphocytes (test code = Lymphocytes) 35.1 20.0-40.0 [facility] CenterUvkbrmpMXVJCQLJUG9711-82-12 02:01:00 Test Item Value Reference Range Interpretation Comments Lymphocytes # (test code = Lymphocytes 3.5 1.0-5.5 #) [facility] CenterVmdinacYMWKJVDSYI8038-29-93 02:01:00 Test Item Value Reference Range Interpretation Comments Monocytes (test code = Monocytes) 6.7 2.0-12.0 [facility] CenterAlfvvynQUWERHNGXH2798-54-53 02:01:00 Test Item Value Reference Range Interpretation Comments Segs (test code = Segs) 54.8 45.0-75.0 [facility] CenterAvpvsxqNWHDEQGZBG0769-52-16 02:01:00 Test Item Value Reference Range Interpretation Comments Eosinophils (test code = 2.4 See_Comment [A utomated message] The Eosinophils) system which ge nerated this result tra nsmitted reference range : <=4.0. The reference r kat was not used to int erpret this result as normal/abnormal . [facility] CenterSqfrhoqDHJKIIVCPO3069-38-69 02:01:00 Test Item Value Reference Range Interpretation Comments Basophils # (test code 0.1 See_Comment [Aut omated message] The = Basophils #) system which generated this result tra nsmitted reference range : <=0.2. The reference r kat was not used to int erpret this result as normal/abnormal . [facility] CenterQnjfdqhFEDJBTZEOE6308-04-42 02:01:00 Test Item Value Reference Range Interpretation Comments Microcyte (test code = 1+ *ABN*(09/17/15 Microcyte) 8:01 PM) [facility] CenterIdlvptbLKOJGHTONG1868-53-65 02:01:00 Test Item Value Reference Range Interpretation Comments Eosinophils # (test code 0.2 See_Comment [A utomated message] The = Eosinophils #) system whic h generated this result tra nsmitted reference range : <=0.5. The reference r kat was not used to int erpret this result as normal/abnormal . [facility]2016-01-20 02:01:00 Test Item Value Reference Range Interpretation Comments Lipase Lvl (test code = Lipase Lvl) 196 73-393 [facility]Bioc[facility] SALIA6141-21-80 02:01:00 Test Item Value Reference Range Interpretation Comments Amylase Lvl (test code = Amylase Lvl) 33 25-115 [facility] HospitalVbiokkrAHSCTYDEDGKL2566-62-90 02:01:00 Test Item Value Reference Range Interpretation Comments AGAP (test code = AGAP) 10.7 10.0-20.0 [facility] HospitalGnwzguhOZKEZBKBNFOZ0715-90-12 02:01:00 Test Item Value Reference Range Interpretation Comments A/G Ratio (test code = A/G Ratio) 1.2 0.7-1.6 [facility] HospitalIkdpeqjKGQWCQSJONBM5988-23-45 02:01:00 Test Item Value Reference Range Interpretation Comments Globulin (test code = Globulin) 3.1 2.0-4.0 [facility] HospitalSrvciznRMZAKKVSRPLW7580-98-23 02:01:00 Test Item Value Reference Range Interpretation Comments B/C Ratio (test code = B/C Ratio) 13 6-25 [facility] HospitalLrtrsgsLAMKYLEKGZUS6978-30-07 02:01:00 Test Item Value Reference Range Interpretation Comments Total Protein (test code = Total 6.9 6.4-8.4 Protein) [facility] HospitalOcfjztuNSPYYNMVULEO4715-65-62 02:01:00 Test Item Value Reference Range Interpretation Comments Calcium Lvl (test code = Calcium Lvl) 9.0 8.5-10.5 [facility]WpspobcESWGDCETIJ8811-60-90 02:01:00 Test Item Value Reference Range Interpretation Comments MPV (test code = MPV) 10.0 7.4-10.4 [facility] HospitalGxsbrmvCFRSKVYUMFYJ4666-48-28 02:01:00 Test Item Value Reference Range Interpretation Comments CO2 (test code = CO2) 26 24-32 [facility] HospitalCouluuiTKGHXADVTVYK3407-04-99 02:01:00 Test Item Value Reference Range Interpretation Comments eGFR (test code = eGFR) 110 [facility] HospitalTvrgokaWMVBEGODMWJS5501-64-42 02:01:00 Test Item Value Reference Range Interpretation Comments Bili Total (test code = Bili Total) 0.3 0.2-1.3 [facility] HospitalZtvceygAZZGQAEGVHBJ3887-50-58 02:01:00 Test Item Value Reference Range Interpretation Comments Alk Phos (test code = Alk Phos) 84 39-136 [facility] HospitalTjrofglJIPGOTLVAZWH2652-32-42 02:01:00 Test Item Value Reference Range Interpretation Comments AST (test code = AST) 17 See_Comment [Auto mated message] The system which ge nerated this result transmit arvind reference range : <=37. The reference range was not used to interpr et this result as mario l/abnormal. [facility] HospitalJuzfvryNVXHYYGYPGLJ0025-68-70 02:01:00 Test Item Value Reference Range Interpretation Comments ALT (test code = ALT) 42 See_Comment [Auto mated message] The system which ge nerated this result transmit arvind reference range : <=65. The reference range was not used to interpr et this result as mario l/abnormal. [facility] HospitalVbnovspQKLSONAPCPPO5066-76-69 02:01:00 Test Item Value Reference Range Interpretation Comments Albumin Lvl (test code = Albumin Lvl) 3.8 3.5-5.0 [facility] HospitalZrugccnJMCNCBIWESEE8340-41-82 02:01:00 Test Item Value Reference Range Interpretation Comments Sodium Lvl (test code = Sodium Lvl) 139 135-145 [facility] HospitalWbbnrbgCJTMXQJJJNWD2942-43-10 02:01:00 Test Item Value Reference Range Interpretation Comments Chloride Lvl (test code = Chloride Lvl) 106 95-109 [facility] HospitalLlackkbWKRAVXKXRIDU9608-58-77 02:01:00 Test Item Value Reference Range Interpretation Comments Potassium Lvl (test code = Potassium 3.7 3.5-5.1 Lvl) [facility] CenterWjcnidgPCWXGZZHGY4230-42-09 02:01:00 Test Item Value Reference Range Interpretation Comments RDW (test code = RDW) 16.9 11.5-14.5 [facility] HospitalMeheqcxKHDCEWKPZUKO4737-38-60 02:01:00 Test Item Value Reference Range Interpretation Comments BUN (test code = BUN) 10 7-22 [facility] HospitalZgfmtyvFOITALPBAYIQ9833-36-61 02:01:00 Test Item Value Reference Range Interpretation Comments Glucose Lvl (test code = Glucose Lvl) 88 70-99 [facility] HospitalAaqjuhpBTZCOMWNWQBR9438-19-96 02:01:00 Test Item Value Reference Range Interpretation Comments Creatinine Lvl (test code = Creatinine 0.76 0.50-1.40 Lvl) [facility] CenterNawicmqOKLJEUVPYJ3387-35-96 02:01:00 Test Item Value Reference Range Interpretation Comments Segs-Bands # (test code = Segs-Bands #) 5.4 1.5-8.1 [facility] CenterXsjqdycPCYGYEIICW1862-76-90 02:01:00 Test Item Value Reference Range Interpretation Comments Basophils (test code = 1.0 See_Comment [Aut omated message] The Basophils) system which ge nerated this result tra nsmitted reference range : <=1.0. The reference r kat was not used to int erpret this result as normal/abnormal . [facility] CenterNwgpwonWPFXHFEOHY8234-03-97 02:01:00 Test Item Value Reference Range Interpretation Comments Monocytes # (test code 0.7 See_Comment [Aut omated message] The = Monocytes #) system which generated this result tra nsmitted reference range : <=0.8. The reference r kat was not used to int erpret this result as normal/abnormal . [facility] CenterMtpxdfoHTPYRQVFML8137-40-91 02:01:00 Test Item Value Reference Range Interpretation Comments Lymphocytes (test code = Lymphocytes) 35.1 20.0-40.0 [facility] CenterNpdnxoxHABGQPAZLG8490-61-66 02:01:00 Test Item Value Reference Range Interpretation Comments Lymphocytes # (test code = Lymphocytes 3.5 1.0-5.5 #) [facility] CenterCpnicjwDUGKWXLZMT0100-89-26 02:01:00 Test Item Value Reference Range Interpretation Comments Monocytes (test code = Monocytes) 6.7 2.0-12.0 [facility] CenterDgaikvcEXEZHOBWYH3448-29-75 02:01:00 Test Item Value Reference Range Interpretation Comments Segs (test code = Segs) 54.8 45.0-75.0 [facility] CenterCzmfocbNTBWAXAKXI0803-64-51 02:01:00 Test Item Value Reference Range Interpretation Comments Platelet (test code = Platelet) 208 133-450 [facility] CenterLfbrzrtAJZZLRFOPP1975-09-43 02:01:00 Test Item Value Reference Range Interpretation Comments Eosinophils (test code = 2.4 See_Comment [A utomated message] The Eosinophils) system which ge nerated this result tra nsmitted reference range : <=4.0. The reference r kat was not used to int erpret this result as normal/abnormal . [facility] CenterEqbnsqpUSGQPHTHHT3098-01-91 02:01:00 Test Item Value Reference Range Interpretation Comments Basophils # (test code 0.1 See_Comment [Aut omated message] The = Basophils #) system which generated this result tra nsmitted reference range : <=0.2. The reference r kat was not used to int erpret this result as normal/abnormal . [facility] CenterSazugecURAUOQOZTZ4080-97-34 02:01:00 Test Item Value Reference Range Interpretation Comments Microcyte (test code = 1+ *ABN*(09/17/15 Microcyte) 8:01 PM) [facility] CenterVjmdwwzFLZTCAJCCF9467-74-38 02:01:00 Test Item Value Reference Range Interpretation Comments Eosinophils # (test code 0.2 See_Comment [A utomated message] The = Eosinophils #) system whic h generated this result tra nsmitted reference range : <=0.5. The reference r kat was not used to int erpret this result as normal/abnormal . [facility] CenterOevhqkyQWDKAVUVNJ4550-15-45 02:01:00 Test Item Value Reference Range Interpretation Comments MPV (test code = MPV) 10.0 7.4-10.4 [facility] CenterZuegoleUTQPHJALRD1962-69-42 02:01:00 Test Item Value Reference Range Interpretation Comments RDW (test code = RDW) 16.9 11.5-14.5 [facility] CenterIvipgcaYJYPXUYYAZ9130-19-91 02:01:00 Test Item Value Reference Range Interpretation Comments Platelet (test code = Platelet) 208 133-450 [facility] CenterHjksemnURTDYMRYIH3887-37-96 02:01:00 Test Item Value Reference Range Interpretation Comments MCV (test code = MCV) 77.9 80.0-98.0 [facility] CenterFhqthelQLYNHXRQBN9216-17-47 02:01:00 Test Item Value Reference Range Interpretation Comments MCH (test code = MCH) 24.2 pg 27.0-31.0 [facility] CenterPcagoqcAZBASKONUE3652-45-60 02:01:00 Test Item Value Reference Range Interpretation Comments MCHC (test code = MCHC) 31.1 32.0-36.0 [facility] CenterWtiidnzWGLOIXGTPG8885-92-57 02:01:00 Test Item Value Reference Range Interpretation Comments MCV (test code = MCV) 77.9 80.0-98.0 [facility] CenterVnohdgwMOBWLREHPH7621-49-09 02:01:00 Test Item Value Reference Range Interpretation Comments Hgb (test code = Hgb) 13.3 12.0-16.0 [facility] CenterQlqabirRHOXTFXCFX8050-09-08 02:01:00 Test Item Value Reference Range Interpretation Comments Hct (test code = Hct) 42.6 36.0-48.0 [facility] CenterGcmklllZPLNLYLYTS4369-70-37 02:01:00 Test Item Value Reference Range Interpretation Comments WBC (test code = WBC) 9.9 3.7-10.4 [facility] CenterFyvueqgUHZQSLEPYW1836-89-63 02:01:00 Test Item Value Reference Range Interpretation Comments RBC (test code = RBC) 5.47 4.20-5.40 [facility] CenterGpxzzdvIJUDHMQWOS5806-46-95 02:01:00 Test Item Value Reference Range Interpretation Comments MCH (test code = MCH) 24.2 pg 27.0-31.0 [facility] CenterNhjpvtdLNAVMMBNRT1754-50-98 02:01:00 Test Item Value Reference Range Interpretation Comments MCHC (test code = MCHC) 31.1 32.0-36.0 [facility] CenterXxacfdkFAOPDQUHMQ1755-04-30 02:01:00 Test Item Value Reference Range Interpretation Comments Hgb (test code = Hgb) 13.3 12.0-16.0 [facility] CenterBuveiobYXWCONEJAZ9650-11-39 02:01:00 Test Item Value Reference Range Interpretation Comments Hct (test code = Hct) 42.6 36.0-48.0 [facility] CenterZwxnjxkTHCNIXSOOB0018-57-13 02:01:00 Test Item Value Reference Range Interpretation Comments WBC (test code = WBC) 9.9 3.7-10.4 [facility] CenterOskxkhvJNXRENUTSK3879-58-98 02:01:00 Test Item Value Reference Range Interpretation Comments RBC (test code = RBC) 5.47 4.20-5.40 [facility]2016-01-20 02:01:00 Test Item Value Reference Range Interpretation Comments Lipase Lvl (test code = Lipase Lvl) 196 73-393 [facility] ZBKJW5547-25-79 02:01:00 Test Item Value Reference Range Interpretation Comments Amylase Lvl (test code = Amylase Lvl) 33 25-115 [facility] HospitalArmkyivCUTQJCADOFJG1216-20-12 02:01:00 Test Item Value Reference Range Interpretation Comments AGAP (test code = AGAP) 10.7 10.0-20.0 [facility] HospitalSavrnjpCDVEWAWFRCRM5503-11-76 02:01:00 Test Item Value Reference Range Interpretation Comments A/G Ratio (test code = A/G Ratio) 1.2 0.7-1.6 [facility] HospitalPnhqcsrDXBCKCYXUFEQ4170-33-18 02:01:00 Test Item Value Reference Range Interpretation Comments Globulin (test code = Globulin) 3.1 2.0-4.0 [facility] HospitalLlmixmgAUKKNVASTICA7452-31-01 02:01:00 Test Item Value Reference Range Interpretation Comments B/C Ratio (test code = B/C Ratio) 13 6-25 [facility] HospitalJcujbbjPFDUOJQNZJQV5965-97-07 02:01:00 Test Item Value Reference Range Interpretation Comments Total Protein (test code = Total 6.9 6.4-8.4 Protein) [facility] HospitalEqhrhgbOJENHFHBOSAY7130-98-53 02:01:00 Test Item Value Reference Range Interpretation Comments Calcium Lvl (test code = Calcium Lvl) 9.0 8.5-10.5 [facility] HospitalLzotfazYHQYGSGDVITS1154-34-71 02:01:00 Test Item Value Reference Range Interpretation Comments CO2 (test code = CO2) 26 24-32 [facility] HospitalKlkhmhvYANWTKEFBBCY1351-46-74 02:01:00 Test Item Value Reference Range Interpretation Comments eGFR (test code = eGFR) 110 [facility] HospitalPmefuvaIILTIXRMIHIU4118-99-97 02:01:00 Test Item Value Reference Range Interpretation Comments Bili Total (test code = Bili Total) 0.3 0.2-1.3 [facility] HospitalRwjdbccUXJVCZMOFOJW0680-31-70 02:01:00 Test Item Value Reference Range Interpretation Comments Alk Phos (test code = Alk Phos) 84 39-136 [facility] HospitalAsxcqaiBHZMUPTRESMG5355-73-39 02:01:00 Test Item Value Reference Range Interpretation Comments AST (test code = AST) 17 See_Comment [Auto mated message] The system which ge nerated this result transmit arvind reference range : <=37. The reference range was not used to interpr et this result as mario l/abnormal. [facility] HospitalQkvyjltHIGXAKBTBZWS0666-94-70 02:01:00 Test Item Value Reference Range Interpretation Comments ALT (test code = ALT) 42 See_Comment [Auto mated message] The system which ge nerated this result transmit arvind reference range : <=65. The reference range was not used to interpr et this result as mario l/abnormal. [facility] HospitalLfzpfoaVIABVELMQFSG5918-83-50 02:01:00 Test Item Value Reference Range Interpretation Comments Albumin Lvl (test code = Albumin Lvl) 3.8 3.5-5.0 [facility] HospitalYykfudfPMLADLCYLNFU7134-11-06 02:01:00 Test Item Value Reference Range Interpretation Comments Sodium Lvl (test code = Sodium Lvl) 139 135-145 [facility] HospitalRkpfoipQGEUGHRIFNYH2089-12-34 02:01:00 Test Item Value Reference Range Interpretation Comments Chloride Lvl (test code = Chloride Lvl) 106 95-109 [facility] HospitalKqldmhsBVYNIWYKNFGC4936-78-59 02:01:00 Test Item Value Reference Range Interpretation Comments Potassium Lvl (test code = Potassium 3.7 3.5-5.1 Lvl) [facility] [facility]ysydiGXVPKZEXXBDO2865-91-54 02:01:00 Test Item Value Reference Range Interpretation Comments BUN (test code = BUN) 10 7-22 [facility]HxvfkgaBAFUTIXVPQGJ9185-65-06 02:01:00 Test Item Value Reference Range Interpretation Comments Glucose Lvl (test code = Glucose Lvl) 88 70-99 [facility] HospitalStdshvsZDWRVGDUGDYT3021-82-47 02:01:00 Test Item Value Reference Range Interpretation Comments Creatinine Lvl (test code = Creatinine 0.76 0.50-1.40 Lvl) [facility] CenterQnsolwuPMSVJMOJFL5119-24-48 02:01:00 Test Item Value Reference Range Interpretation Comments Segs-Bands # (test code = Segs-Bands #) 5.4 1.5-8.1 [facility] CenterSzojguxAFKREDFRTU3249-04-78 02:01:00 Test Item Value Reference Range Interpretation Comments Basophils (test code = 1.0 See_Comment [Aut omated message] The Basophils) system which ge nerated this result tra nsmitted reference range : <=1.0. The reference r kat was not used to int erpret this result as normal/abnormal . [facility] CenterVramtivUSAPXTXUTJ8462-85-12 02:01:00 Test Item Value Reference Range Interpretation Comments Monocytes # (test code 0.7 See_Comment [Aut omated message] The = Monocytes #) system which generated this result tra nsmitted reference range : <=0.8. The reference r kat was not used to int erpret this result as normal/abnormal . [facility] CenterMnfkhpiBICOGWKQNW1398-73-01 02:01:00 Test Item Value Reference Range Interpretation Comments Lymphocytes (test code = Lymphocytes) 35.1 20.0-40.0 [facility] CenterDkdemaxBFZJWVPUPH9640-89-41 02:01:00 Test Item Value Reference Range Interpretation Comments Lymphocytes # (test code = Lymphocytes 3.5 1.0-5.5 #) [facility] CenterGeypxrhPDDVEILKPZ4228-89-93 02:01:00 Test Item Value Reference Range Interpretation Comments Monocytes (test code = Monocytes) 6.7 2.0-12.0 [facility] CenterAhnveitDTDWZTEIRI0787-04-81 02:01:00 Test Item Value Reference Range Interpretation Comments Segs (test code = Segs) 54.8 45.0-75.0 [facility] CenterLlteucdUNEMYKHDLT6445-31-98 02:01:00 Test Item Value Reference Range Interpretation Comments Eosinophils (test code = 2.4 See_Comment [A utomated message] The Eosinophils) system which ge nerated this result tra nsmitted reference range : <=4.0. The reference r kat was not used to int erpret this result as normal/abnormal . [facility] CenterPooobcoTERQUGYKKD8987-96-31 02:01:00 Test Item Value Reference Range Interpretation Comments Basophils # (test code 0.1 See_Comment [Aut omated message] The = Basophils #) system which generated this result tra nsmitted reference range : <=0.2. The reference r kat was not used to int erpret this result as normal/abnormal . [facility] CenterKflojlcPFZLKTTSGB8223-37-08 02:01:00 Test Item Value Reference Range Interpretation Comments Microcyte (test code = 1+ *ABN*(09/17/15 Microcyte) 8:01 PM) [facility] CenterBqfbnzoYVRPQWQQEX4339-46-89 02:01:00 Test Item Value Reference Range Interpretation Comments Eosinophils # (test code 0.2 See_Comment [A utomated message] The = Eosinophils #) system whic h generated this result tra nsmitted reference range : <=0.5. The reference r kat was not used to int erpret this result as normal/abnormal . [facility] CenterDdozidrHHTTCMSABZ4776-60-16 02:01:00 Test Item Value Reference Range Interpretation Comments MPV (test code = MPV) 10.0 7.4-10.4 [facility] CenterKcdbmtwYSVMUPKVDY4096-42-68 02:01:00 Test Item Value Reference Range Interpretation Comments RDW (test code = RDW) 16.9 11.5-14.5 [facility] CenterYghdfhyROQPPBWXAF9669-88-48 02:01:00 Test Item Value Reference Range Interpretation Comments Platelet (test code = Platelet) 208 133-450 [facility] CenterHzbhaugFSCTCZBSCH8605-51-77 02:01:00 Test Item Value Reference Range Interpretation Comments MCV (test code = MCV) 77.9 80.0-98.0 [facility] CenterBwxhhebYKGBLRSSNU4449-76-85 02:01:00 Test Item Value Reference Range Interpretation Comments MCH (test code = MCH) 24.2 pg 27.0-31.0 [facility] CenterYtieuhbWROXLJAMCO6011-62-00 02:01:00 Test Item Value Reference Range Interpretation Comments MCHC (test code = MCHC) 31.1 32.0-36.0 [facility] CenterJlnjtozHSLQQXWYDF5735-98-66 02:01:00 Test Item Value Reference Range Interpretation Comments Hgb (test code = Hgb) 13.3 12.0-16.0 [facility] CenterWvdfjetUIHIKWYGMQ3274-97-05 02:01:00 Test Item Value Reference Range Interpretation Comments Hct (test code = Hct) 42.6 36.0-48.0 [facility] CenterLnflsauZOGLGHSBFI7081-43-76 02:01:00 Test Item Value Reference Range Interpretation Comments WBC (test code = WBC) 9.9 3.7-10.4 [facility] CenterNtxgiklLFDUNCHKML5540-35-72 02:01:00 Test Item Value Reference Range Interpretation Comments RBC (test code = RBC) 5.47 4.20-5.40 [facility]2016-01-20 02:01:00 Test Item Value Reference Range Interpretation Comments Lipase Lvl (test code = Lipase Lvl) 196 73-393 [facility] FUBAJ3405-21-58 02:01:00 Test Item Value Reference Range Interpretation Comments Amylase Lvl (test code = Amylase Lvl) 33 25-115 [facility] HospitalVrkjcyfWYTWXUYLMPTM8136-98-75 02:01:00 Test Item Value Reference Range Interpretation Comments AGAP (test code = AGAP) 10.7 10.0-20.0 [facility] HospitalCdkwxcuIPERYBYWSWZR3976-32-08 02:01:00 Test Item Value Reference Range Interpretation Comments A/G Ratio (test code = A/G Ratio) 1.2 0.7-1.6 [facility] HospitalEeguuvfJSLAYAUQPBBN7278-56-20 02:01:00 Test Item Value Reference Range Interpretation Comments Globulin (test code = Globulin) 3.1 2.0-4.0 [facility] HospitalExkiqkdXGPKUWTSCVDT9820-82-85 02:01:00 Test Item Value Reference Range Interpretation Comments B/C Ratio (test code = B/C Ratio) 13 6-25 [facility] HospitalQodcfarLULQXMQGBQRZ9835-94-55 02:01:00 Test Item Value Reference Range Interpretation Comments Total Protein (test code = Total 6.9 6.4-8.4 Protein) [facility] HospitalKtqxtskONOZLHCQGGCC8045-46-48 02:01:00 Test Item Value Reference Range Interpretation Comments Calcium Lvl (test code = Calcium Lvl) 9.0 8.5-10.5 [facility] HospitalXtyadarJFTRWHQFJGLP4531-47-37 02:01:00 Test Item Value Reference Range Interpretation Comments CO2 (test code = CO2) 26 24-32 [facility] HospitalNtkroqyQCOETAJHLIVN0873-18-95 02:01:00 Test Item Value Reference Range Interpretation Comments eGFR (test code = eGFR) 110 [facility] HospitalLbmpgnlPUZRVZMRFFVO0121-79-60 02:01:00 Test Item Value Reference Range Interpretation Comments Bili Total (test code = Bili Total) 0.3 0.2-1.3 [facility] HospitalXadxfzaGCGAHGZXHQQZ0808-52-64 02:01:00 Test Item Value Reference Range Interpretation Comments Alk Phos (test code = Alk Phos) 84 39-136 [facility] HospitalYisqtdaSKALGAQOOOGG1874-66-33 02:01:00 Test Item Value Reference Range Interpretation Comments AST (test code = AST) 17 See_Comment [Auto mated message] The system which ge nerated this result transmit arvind reference range : <=37. The reference range was not used to interpr et this result as mario l/abnormal. [facility] HospitalSykejteKSSPRKAHOXIW3519-85-84 02:01:00 Test Item Value Reference Range Interpretation Comments ALT (test code = ALT) 42 See_Comment [Auto mated message] The system which ge nerated this result transmit arvind reference range : <=65. The reference range was not used to interpr et this result as mario l/abnormal. [facility] HospitalBkiucqySYLRQYAHMZXV7280-52-25 02:01:00 Test Item Value Reference Range Interpretation Comments Albumin Lvl (test code = Albumin Lvl) 3.8 3.5-5.0 [facility] HospitalBuptqbgLRNLWRPFSBJM6038-92-86 02:01:00 Test Item Value Reference Range Interpretation Comments Sodium Lvl (test code = Sodium Lvl) 139 135-145 [facility] HospitalKlckpavJFJXPCBJINJS3543-46-89 02:01:00 Test Item Value Reference Range Interpretation Comments Chloride Lvl (test code = Chloride Lvl) 106 95-109 [facility] HospitalFhleieeOKBSVIKONVCI1015-73-84 02:01:00 Test Item Value Reference Range Interpretation Comments Potassium Lvl (test code = Potassium 3.7 3.5-5.1 Lvl) [facility] HospitalCuvjdsbNHEBFRAVHAXJ8358-61-34 02:01:00 Test Item Value Reference Range Interpretation Comments BUN (test code = BUN) 10 7-22 [facility] HospitalDfekzgwXYPRKEZBTCLM7677-46-66 02:01:00 Test Item Value Reference Range Interpretation Comments Glucose Lvl (test code = Glucose Lvl) 88 70-99 [facility] HospitalWkdzszhZHAVFNTDUPZV9724-28-04 02:01:00 Test Item Value Reference Range Interpretation Comments Creatinine Lvl (test code = Creatinine 0.76 0.50-1.40 Lvl) [facility] CenterBzgmqksPTWRGBKSYP9539-31-72 02:01:00 Test Item Value Reference Range Interpretation Comments Segs-Bands # (test code = Segs-Bands #) 5.4 1.5-8.1 [facility] CenterRxabsquJQAEODLOFV9084-63-54 02:01:00 Test Item Value Reference Range Interpretation Comments Basophils (test code = 1.0 See_Comment [Aut omated message] The Basophils) system which ge nerated this result tra nsmitted reference range : <=1.0. The reference r kat was not used to int erpret this result as normal/abnormal . [facility] CenterKujfdtyJMERKSKYPB5429-56-41 02:01:00 Test Item Value Reference Range Interpretation Comments Monocytes # (test code 0.7 See_Comment [Aut omated message] The = Monocytes #) system which generated this result tra nsmitted reference range : <=0.8. The reference r kat was not used to int erpret this result as normal/abnormal . [facility] CenterYdiukcvGMROFRLCHZ4311-63-65 02:01:00 Test Item Value Reference Range Interpretation Comments Lymphocytes (test code = Lymphocytes) 35.1 20.0-40.0 [facility] CenterSsnnvnpYGAXQDJLXC3444-03-52 02:01:00 Test Item Value Reference Range Interpretation Comments Lymphocytes # (test code = Lymphocytes 3.5 1.0-5.5 #) [facility] CenterPdmsswyFNTHKZVVPV7783-35-61 02:01:00 Test Item Value Reference Range Interpretation Comments Monocytes (test code = Monocytes) 6.7 2.0-12.0 [facility] CenterHlesrjjYMSETHAYUT8115-66-08 02:01:00 Test Item Value Reference Range Interpretation Comments Segs (test code = Segs) 54.8 45.0-75.0 [facility] CenterZavpnkzVADCMTDQGW9171-94-09 02:01:00 Test Item Value Reference Range Interpretation Comments Eosinophils (test code = 2.4 See_Comment [A utomated message] The Eosinophils) system which ge nerated this result tra nsmitted reference range : <=4.0. The reference r kat was not used to int erpret this result as normal/abnormal . [facility] CenterKltftekWVTPHUBFNC5054-23-90 02:01:00 Test Item Value Reference Range Interpretation Comments Basophils # (test code 0.1 See_Comment [Aut omated message] The = Basophils #) system which generated this result tra nsmitted reference range : <=0.2. The reference r kat was not used to int erpret this result as normal/abnormal . [facility] CenterZnlxifdRRFBRCRTPV1837-98-97 02:01:00 Test Item Value Reference Range Interpretation Comments Microcyte (test code = 1+ *ABN*(09/17/15 Microcyte) 8:01 PM) [facility] CenterYbedlklYDKCFRQBBG0940-78-31 02:01:00 Test Item Value Reference Range Interpretation Comments Eosinophils # (test code 0.2 See_Comment [A utomated message] The = Eosinophils #) system whic h generated this result tra nsmitted reference range : <=0.5. The reference r kat was not used to int erpret this result as normal/abnormal . [facility] CenterCteaghwMJENOGQXPB6974-57-34 02:01:00 Test Item Value Reference Range Interpretation Comments MPV (test code = MPV) 10.0 7.4-10.4 [facility] CenterAlvbokxHTPULXGZOU1789-44-83 02:01:00 Test Item Value Reference Range Interpretation Comments RDW (test code = RDW) 16.9 11.5-14.5 [facility] CenterQirwopmOTFCTDNZSJ6880-07-12 02:01:00 Test Item Value Reference Range Interpretation Comments Platelet (test code = Platelet) 208 133-450 [facility] CenterRvnuwtoTDTDGTAAEQ4174-88-76 02:01:00 Test Item Value Reference Range Interpretation Comments MCV (test code = MCV) 77.9 80.0-98.0 [facility] CenterWsxxqbvRWHUJMPTHM2729-35-16 02:01:00 Test Item Value Reference Range Interpretation Comments MCH (test code = MCH) 24.2 pg 27.0-31.0 [facility] CenterJaqpmlcPXZVTSYHUI4130-51-48 02:01:00 Test Item Value Reference Range Interpretation Comments MCHC (test code = MCHC) 31.1 32.0-36.0 [facility] CenterMjkxpdbYXWYVSQVED8154-19-20 02:01:00 Test Item Value Reference Range Interpretation Comments Hgb (test code = Hgb) 13.3 12.0-16.0 [facility] CenterCirsqnaMWFYNEDYWX6769-79-70 02:01:00 Test Item Value Reference Range Interpretation Comments Hct (test code = Hct) 42.6 36.0-48.0 [facility] CenterWtfojjpTJRLJGIQFH2422-49-84 02:01:00 Test Item Value Reference Range Interpretation Comments WBC (test code = WBC) 9.9 3.7-10.4 [facility] CenterNckhbmoKUYFSEVNAW2370-28-72 02:01:00 Test Item Value Reference Range Interpretation Comments RBC (test code = RBC) 5.47 4.20-5.40 [facility]2016-01-20 02:01:00 Test Item Value Reference Range Interpretation Comments Lipase Lvl (test code = Lipase Lvl) 196 73-393 [facility]2016-01-20 02:01:00 Test Item Value Reference Range Interpretation Comments Amylase Lvl (test code = Amylase Lvl) 33 25-115 [facility] HospitalIzrcnolPPVGDZQGMSXC3538-21-42 02:01:00 Test Item Value Reference Range Interpretation Comments AGAP (test code = AGAP) 10.7 10.0-20.0 [facility] HospitalDrvjeghFWKRLVTAQXDF3744-51-28 02:01:00 Test Item Value Reference Range Interpretation Comments A/G Ratio (test code = A/G Ratio) 1.2 0.7-1.6 [facility] HospitalYppqmvbEXIPODCFAJXT9335-74-82 02:01:00 Test Item Value Reference Range Interpretation Comments Globulin (test code = Globulin) 3.1 2.0-4.0 [facility] HospitalWvujfzgQSGDYNQLDDXQ4558-04-93 02:01:00 Test Item Value Reference Range Interpretation Comments B/C Ratio (test code = B/C Ratio) 13 6-25 [facility] HospitalJbzftgnJEYEDYAMFYSE9095-88-48 02:01:00 Test Item Value Reference Range Interpretation Comments Total Protein (test code = Total 6.9 6.4-8.4 Protein) [facility] HospitalSmzwbcsSIFYPIEQRLRR0306-71-15 02:01:00 Test Item Value Reference Range Interpretation Comments Calcium Lvl (test code = Calcium Lvl) 9.0 8.5-10.5 [facility] HospitalDxlfribNBQFIAXVUUFM8248-79-07 02:01:00 Test Item Value Reference Range Interpretation Comments CO2 (test code = CO2) 26 24-32 [facility] HospitalItabvuzWHADEYSLXXVL4583-47-04 02:01:00 Test Item Value Reference Range Interpretation Comments eGFR (test code = eGFR) 110 [facility] HospitalZzllsvaANKFJCLFXDDW6799-16-30 02:01:00 Test Item Value Reference Range Interpretation Comments Bili Total (test code = Bili Total) 0.3 0.2-1.3 [facility] HospitalMvirubhGHAAECANYRNI5570-60-28 02:01:00 Test Item Value Reference Range Interpretation Comments Alk Phos (test code = Alk Phos) 84 39-136 [facility] HospitalTfaclcvUWANPBNAKPWD8643-78-81 02:01:00 Test Item Value Reference Range Interpretation Comments AST (test code = AST) 17 See_Comment [Auto mated message] The system which ge nerated this result transmit arvind reference range : <=37. The reference range was not used to interpr et this result as mario l/abnormal. [facility] HospitalRdkfwihCQFMMYWUXVHR6118-27-22 02:01:00 Test Item Value Reference Range Interpretation Comments ALT (test code = ALT) 42 See_Comment [Auto mated message] The system which ge nerated this result transmit arvind reference range : <=65. The reference range was not used to interpr et this result as mario l/abnormal. [facility] HospitalAmiduyhSPRQVJFCLIIX2828-67-92 02:01:00 Test Item Value Reference Range Interpretation Comments Albumin Lvl (test code = Albumin Lvl) 3.8 3.5-5.0 [facility] HospitalAjjpuwkGSVQBCHDADBR9819-20-17 02:01:00 Test Item Value Reference Range Interpretation Comments Sodium Lvl (test code = Sodium Lvl) 139 135-145 [facility] HospitalEqhcykvHRJZMTJFPHLE9755-08-00 02:01:00 Test Item Value Reference Range Interpretation Comments Chloride Lvl (test code = Chloride Lvl) 106 95-109 [facility] HospitalFpjegxhAKJQWUBCKDXV2131-87-01 02:01:00 Test Item Value Reference Range Interpretation Comments Potassium Lvl (test code = Potassium 3.7 3.5-5.1 Lvl) [facility] HospitalCmeujwoVWEPGUQDYBUM1404-56-03 02:01:00 Test Item Value Reference Range Interpretation Comments BUN (test code = BUN) 10 7-22 [facility] HospitalPclamweHEXFLJSXLMKA9928-56-61 02:01:00 Test Item Value Reference Range Interpretation Comments Glucose Lvl (test code = Glucose Lvl) 88 70-99 [facility] HospitalNlcbycjTNNQBEAPTBQS3171-63-31 02:01:00 Test Item Value Reference Range Interpretation Comments Creatinine Lvl (test code = Creatinine 0.76 0.50-1.40 Lvl) [facility] CenterOrolayoLOYOZVXVZM1905-15-27 02:01:00 Test Item Value Reference Range Interpretation Comments Segs-Bands # (test code = Segs-Bands #) 5.4 1.5-8.1 [facility] CenterIacxpslJCGRIENFWX5599-05-79 02:01:00 Test Item Value Reference Range Interpretation Comments Basophils (test code = 1.0 See_Comment [Aut omated message] The Basophils) system which ge nerated this result tra nsmitted reference range : <=1.0. The reference r kat was not used to int erpret this result as normal/abnormal . [facility] CenterKxgmdyjQMOEMILISC6358-02-08 02:01:00 Test Item Value Reference Range Interpretation Comments Monocytes # (test code 0.7 See_Comment [Aut omated message] The = Monocytes #) system which generated this result tra nsmitted reference range : <=0.8. The reference r kat was not used to int erpret this result as normal/abnormal . [facility] CenterRpjcbgmWJCVIBOKGQ5146-04-69 02:01:00 Test Item Value Reference Range Interpretation Comments Lymphocytes (test code = Lymphocytes) 35.1 20.0-40.0 [facility] CenterUjtpirhSZTKLKFIAQ3430-05-98 02:01:00 Test Item Value Reference Range Interpretation Comments Lymphocytes # (test code = Lymphocytes 3.5 1.0-5.5 #) [facility] CenterXgnqdvbHMXWBBGEDU2092-56-97 02:01:00 Test Item Value Reference Range Interpretation Comments Monocytes (test code = Monocytes) 6.7 2.0-12.0 [facility] CenterGpmbzujLBWQVLXPMV3388-83-53 02:01:00 Test Item Value Reference Range Interpretation Comments Segs (test code = Segs) 54.8 45.0-75.0 [facility] CenterNzcptjyXBNUNAYHCI7417-58-07 02:01:00 Test Item Value Reference Range Interpretation Comments Eosinophils (test code = 2.4 See_Comment [A utomated message] The Eosinophils) system which ge nerated this result tra nsmitted reference range : <=4.0. The reference r kat was not used to int erpret this result as normal/abnormal . [facility] CenterFsazvzjHRVWZDIGTP1475-42-00 02:01:00 Test Item Value Reference Range Interpretation Comments Basophils # (test code 0.1 See_Comment [Aut omated message] The = Basophils #) system which generated this result tra nsmitted reference range : <=0.2. The reference r kat was not used to int erpret this result as normal/abnormal . [facility] CenterSgsankbIUIJUIEOIW2438-11-14 02:01:00 Test Item Value Reference Range Interpretation Comments Microcyte (test code = 1+ *ABN*(09/17/15 Microcyte) 8:01 PM) [facility] CenterFyxdxmxAWQKIRZAEE3965-33-99 02:01:00 Test Item Value Reference Range Interpretation Comments Eosinophils # (test code 0.2 See_Comment [A utomated message] The = Eosinophils #) system whic h generated this result tra nsmitted reference range : <=0.5. The reference r kat was not used to int erpret this result as normal/abnormal . [facility] CenterRolormyOVHUOHJAEZ3651-99-48 02:01:00 Test Item Value Reference Range Interpretation Comments MPV (test code = MPV) 10.0 7.4-10.4 [facility] CenterZkvqfkzGRVJFUMZQC0425-50-03 02:01:00 Test Item Value Reference Range Interpretation Comments RDW (test code = RDW) 16.9 11.5-14.5 [facility] CenterXmmklckVJBTSTZNKX6737-32-65 02:01:00 Test Item Value Reference Range Interpretation Comments Platelet (test code = Platelet) 208 133-450 [facility] CenterMgtyzplBCFGQLNJQA0011-55-06 02:01:00 Test Item Value Reference Range Interpretation Comments MCV (test code = MCV) 77.9 80.0-98.0 [facility] CenterPhhdnpmRSVVPDJVRG0053-77-46 02:01:00 Test Item Value Reference Range Interpretation Comments MCH (test code = MCH) 24.2 pg 27.0-31.0 [facility] CenterWbxtgkeYNQVWEIXJD0296-69-33 02:01:00 Test Item Value Reference Range Interpretation Comments MCHC (test code = MCHC) 31.1 32.0-36.0 [facility] CenterJacqwupXXHHKEMKZN8529-89-24 02:01:00 Test Item Value Reference Range Interpretation Comments Hgb (test code = Hgb) 13.3 12.0-16.0 [facility] CenterMkupkagXPLUDZWXTD9202-36-90 02:01:00 Test Item Value Reference Range Interpretation Comments Hct (test code = Hct) 42.6 36.0-48.0 [facility] CenterRxyhxytVNUEJBLUMO7352-89-38 02:01:00 Test Item Value Reference Range Interpretation Comments WBC (test code = WBC) 9.9 3.7-10.4 [facility] CenterPfilubxFSUAZRQBBW7453-04-59 02:01:00 Test Item Value Reference Range Interpretation Comments RBC (test code = RBC) 5.47 4.20-5.40 [facility]2016-01-20 02:01:00 Test Item Value Reference Range Interpretation Comments Lipase Lvl (test code = Lipase Lvl) 196 73-393 [facility] JGRWZ3500-23-92 02:01:00 Test Item Value Reference Range Interpretation Comments Amylase Lvl (test code = Amylase Lvl) 33 25-115 [facility] HospitalNvzrvowGMIVXXBPQKZW1659-55-62 02:01:00 Test Item Value Reference Range Interpretation Comments AGAP (test code = AGAP) 10.7 10.0-20.0 [facility] HospitalKgvxladMDBWOOOQDUXP0505-43-47 02:01:00 Test Item Value Reference Range Interpretation Comments A/G Ratio (test code = A/G Ratio) 1.2 0.7-1.6 [facility] HospitalFmgvwxiEGWEWYLMXBCF8634-88-70 02:01:00 Test Item Value Reference Range Interpretation Comments Globulin (test code = Globulin) 3.1 2.0-4.0 [facility] HospitalAqngxrgORCREEHFQRRV1092-55-83 02:01:00 Test Item Value Reference Range Interpretation Comments B/C Ratio (test code = B/C Ratio) 13 6-25 [facility] HospitalHkofpyzJWHVANNYFADZ7641-46-07 02:01:00 Test Item Value Reference Range Interpretation Comments Total Protein (test code = Total 6.9 6.4-8.4 Protein) [facility] HospitalYexeeshOTOTGPGBBEFA6944-54-38 02:01:00 Test Item Value Reference Range Interpretation Comments Calcium Lvl (test code = Calcium Lvl) 9.0 8.5-10.5 [facility] [facility]GZK2590-42-42 02:01:00 Test Item Value Reference Range Interpretation Comments CO2 (test code = CO2) 26 24-32 [facility]GpmijjyUPPVSJFNHVUH5355-83-22 02:01:00 Test Item Value Reference Range Interpretation Comments eGFR (test code = eGFR) 110 [facility] HospitalYzxlywgETAVLTZRORGO5006-51-35 02:01:00 Test Item Value Reference Range Interpretation Comments Bili Total (test code = Bili Total) 0.3 0.2-1.3 [facility] HospitalTecmnreXFGULPGVVOBE1279-87-42 02:01:00 Test Item Value Reference Range Interpretation Comments Alk Phos (test code = Alk Phos) 84 39-136 [facility] HospitalKawqgipPQONJTHPILND3827-42-46 02:01:00 Test Item Value Reference Range Interpretation Comments AST (test code = AST) 17 See_Comment [Auto mated message] The system which ge nerated this result transmit arvind reference range : <=37. The reference range was not used to interpr et this result as mario l/abnormal. [facility] HospitalWpetmnzJWMRBXHVBORG5909-20-82 02:01:00 Test Item Value Reference Range Interpretation Comments ALT (test code = ALT) 42 See_Comment [Auto mated message] The system which ge nerated this result transmit arvind reference range : <=65. The reference range was not used to interpr et this result as mario l/abnormal. [facility] HospitalCpyakslDSZTTGCTTDUQ2110-41-09 02:01:00 Test Item Value Reference Range Interpretation Comments Albumin Lvl (test code = Albumin Lvl) 3.8 3.5-5.0 [facility] HospitalBjoqvurLPRVULTJNBPF4341-84-59 02:01:00 Test Item Value Reference Range Interpretation Comments Sodium Lvl (test code = Sodium Lvl) 139 135-145 [facility] HospitalDsxuvgvPRBNXNPCEKVW5537-19-32 02:01:00 Test Item Value Reference Range Interpretation Comments Chloride Lvl (test code = Chloride Lvl) 106 95-109 [facility] HospitalQlwfztfIWFIVWYGVCTT1523-45-08 02:01:00 Test Item Value Reference Range Interpretation Comments Potassium Lvl (test code = Potassium 3.7 3.5-5.1 Lvl) [facility] HospitalSvhjfflZPNZHATNSBAP8620-02-64 02:01:00 Test Item Value Reference Range Interpretation Comments BUN (test code = BUN) 10 7-22 [facility] HospitalZivxxdcVRLDFXLSOVFY6563-65-27 02:01:00 Test Item Value Reference Range Interpretation Comments Glucose Lvl (test code = Glucose Lvl) 88 70-99 [facility] HospitalQkrbipaGZLEGGUUVZHE3724-42-66 02:01:00 Test Item Value Reference Range Interpretation Comments Creatinine Lvl (test code = Creatinine 0.76 0.50-1.40 Lvl) [facility] CenterGxkdibiRWADCZKNIW2176-81-22 02:01:00 Test Item Value Reference Range Interpretation Comments Segs-Bands # (test code = Segs-Bands #) 5.4 1.5-8.1 [facility] CenterNlqeagsIDRTLNBQQP8772-83-49 02:01:00 Test Item Value Reference Range Interpretation Comments Basophils (test code = 1.0 See_Comment [Aut omated message] The Basophils) system which ge nerated this result tra nsmitted reference range : <=1.0. The reference r kat was not used to int erpret this result as normal/abnormal . [facility] CenterTdktwupOUVYWYEVGG9548-13-56 02:01:00 Test Item Value Reference Range Interpretation Comments Monocytes # (test code 0.7 See_Comment [Aut omated message] The = Monocytes #) system which generated this result tra nsmitted reference range : <=0.8. The reference r kat was not used to int erpret this result as normal/abnormal . [facility] CenterGenmcnuAJVUJPVVSJ1979-62-30 02:01:00 Test Item Value Reference Range Interpretation Comments Lymphocytes (test code = Lymphocytes) 35.1 20.0-40.0 [facility] CenterKjlihaiBYIDWPDCYW4945-07-19 02:01:00 Test Item Value Reference Range Interpretation Comments Lymphocytes # (test code = Lymphocytes 3.5 1.0-5.5 #) [facility] CenterWmztappPSYPNWMJWV8668-00-33 02:01:00 Test Item Value Reference Range Interpretation Comments Monocytes (test code = Monocytes) 6.7 2.0-12.0 [facility] CenterRctqyveEPTLLOWJCK4335-75-13 02:01:00 Test Item Value Reference Range Interpretation Comments Segs (test code = Segs) 54.8 45.0-75.0 [facility] CenterLjtbisdYCQXAOCOBD9392-33-87 02:01:00 Test Item Value Reference Range Interpretation Comments Eosinophils (test code = 2.4 See_Comment [A utomated message] The Eosinophils) system which ge nerated this result tra nsmitted reference range : <=4.0. The reference r kat was not used to int erpret this result as normal/abnormal . [facility] CenterKyvybxnZOTMUXBMGD7370-16-58 02:01:00 Test Item Value Reference Range Interpretation Comments Basophils # (test code 0.1 See_Comment [Aut omated message] The = Basophils #) system which generated this result tra nsmitted reference range : <=0.2. The reference r kat was not used to int erpret this result as normal/abnormal . [facility] CenterUiqwefhQUCYOEXLNI2630-01-49 02:01:00 Test Item Value Reference Range Interpretation Comments Microcyte (test code = 1+ *ABN*(09/17/15 Microcyte) 8:01 PM) [facility] CenterUlchzhxLDWUWVKNKF4014-86-98 02:01:00 Test Item Value Reference Range Interpretation Comments Eosinophils # (test code 0.2 See_Comment [A utomated message] The = Eosinophils #) system whic h generated this result tra nsmitted reference range : <=0.5. The reference r kat was not used to int erpret this result as normal/abnormal . [facility] CenterNjqwufpZFVCATWPAY0422-48-72 02:01:00 Test Item Value Reference Range Interpretation Comments MPV (test code = MPV) 10.0 7.4-10.4 [facility] CenterUdicbhoKXPXJHHJMJ5467-03-03 02:01:00 Test Item Value Reference Range Interpretation Comments RDW (test code = RDW) 16.9 11.5-14.5 [facility] CenterDtygjkaQEFIJLUCSV0001-52-58 02:01:00 Test Item Value Reference Range Interpretation Comments Platelet (test code = Platelet) 208 133-450 [facility] CenterLfoxxwsUAQVBRZEDH5214-91-66 02:01:00 Test Item Value Reference Range Interpretation Comments MCV (test code = MCV) 77.9 80.0-98.0 [facility] CenterJkqmpwtNVMMYENRZK0296-44-63 02:01:00 Test Item Value Reference Range Interpretation Comments MCH (test code = MCH) 24.2 pg 27.0-31.0 [facility] CenterAanpcvrCQOXVMWYKK2545-04-58 02:01:00 Test Item Value Reference Range Interpretation Comments MCHC (test code = MCHC) 31.1 32.0-36.0 [facility] CenterThivimcUQUZJFVCDE9658-30-66 02:01:00 Test Item Value Reference Range Interpretation Comments Hgb (test code = Hgb) 13.3 12.0-16.0 [facility] CenterLaydkmaWPMZSGXVFU6814-50-65 02:01:00 Test Item Value Reference Range Interpretation Comments Hct (test code = Hct) 42.6 36.0-48.0 [facility] CenterOlfzclvCNXBLBRGLV2721-65-84 02:01:00 Test Item Value Reference Range Interpretation Comments WBC (test code = WBC) 9.9 3.7-10.4 [facility] CenterXbdmfleJGAWUVDDZJ5777-49-71 02:01:00 Test Item Value Reference Range Interpretation Comments RBC (test code = RBC) 5.47 4.20-5.40 [facility]2016-01-20 02:01:00 Test Item Value Reference Range Interpretation Comments Lipase Lvl (test code = Lipase Lvl) 196 73-393 [facility] RBDNQ6299-66-60 02:01:00 Test Item Value Reference Range Interpretation Comments Amylase Lvl (test code = Amylase Lvl) 33 25-115 [facility] HospitalCbjbhvjEAHUTVFYOOOS2848-90-99 02:01:00 Test Item Value Reference Range Interpretation Comments AGAP (test code = AGAP) 10.7 10.0-20.0 [facility] HospitalZidtdwjTTYOBONKRYYA7756-86-27 02:01:00 Test Item Value Reference Range Interpretation Comments A/G Ratio (test code = A/G Ratio) 1.2 0.7-1.6 [facility] HospitalMyilbcxKXQYLDKHXGVW4225-87-22 02:01:00 Test Item Value Reference Range Interpretation Comments Globulin (test code = Globulin) 3.1 2.0-4.0 [facility] HospitalDkdhjvrCRBODYNQCQWA1975-44-39 02:01:00 Test Item Value Reference Range Interpretation Comments B/C Ratio (test code = B/C Ratio) 13 6-25 [facility] HospitalQeotrttPZSLYDIOVMSN3790-06-96 02:01:00 Test Item Value Reference Range Interpretation Comments Total Protein (test code = Total 6.9 6.4-8.4 Protein) [facility] HospitalGkmcdjvFDHTJQSFEMQE0874-47-75 02:01:00 Test Item Value Reference Range Interpretation Comments Calcium Lvl (test code = Calcium Lvl) 9.0 8.5-10.5 [facility] HospitalMhlwbprDLPTZXPGEGLE5547-93-15 02:01:00 Test Item Value Reference Range Interpretation Comments CO2 (test code = CO2) 26 24-32 [facility] HospitalUzvpnqvWFDVWBVZPHIL3032-51-69 02:01:00 Test Item Value Reference Range Interpretation Comments eGFR (test code = eGFR) 110 [facility] HospitalEkvsetmSDZGFTLNBZMO2047-68-82 02:01:00 Test Item Value Reference Range Interpretation Comments Bili Total (test code = Bili Total) 0.3 0.2-1.3 [facility] HospitalIilqukkOZDRVCSPFLXR3336-96-13 02:01:00 Test Item Value Reference Range Interpretation Comments Alk Phos (test code = Alk Phos) 84 39-136 [facility] HospitalYgdboaiMUXSWJMPNFYQ1183-72-34 02:01:00 Test Item Value Reference Range Interpretation Comments AST (test code = AST) 17 See_Comment [Auto mated message] The system which ge nerated this result transmit arvind reference range : <=37. The reference range was not used to interpr et this result as mario l/abnormal. [facility] HospitalCroogxxETQIBQRXARMK4700-49-29 02:01:00 Test Item Value Reference Range Interpretation Comments ALT (test code = ALT) 42 See_Comment [Auto mated message] The system which ge nerated this result transmit arvind reference range : <=65. The reference range was not used to interpr et this result as mario l/abnormal. [facility] HospitalHanmregRVTNBAIIRRKY4013-40-37 02:01:00 Test Item Value Reference Range Interpretation Comments Albumin Lvl (test code = Albumin Lvl) 3.8 3.5-5.0 [facility] HospitalXwejfuaWPPBUYGQYWFK0681-95-18 02:01:00 Test Item Value Reference Range Interpretation Comments Sodium Lvl (test code = Sodium Lvl) 139 135-145 [facility] HospitalNvqowvgIJUVPBWPGQUT4988-23-98 02:01:00 Test Item Value Reference Range Interpretation Comments Chloride Lvl (test code = Chloride Lvl) 106 95-109 [facility] HospitalGucmdjxFIHDXYJAGZDR6949-23-34 02:01:00 Test Item Value Reference Range Interpretation Comments Potassium Lvl (test code = Potassium 3.7 3.5-5.1 Lvl) [facility] HospitalXpgnwryJQHRDWEKGTER6196-97-90 02:01:00 Test Item Value Reference Range Interpretation Comments BUN (test code = BUN) 10 7-22 [facility] HospitalUhtpjokGYJOAMTSEUWM0489-34-46 02:01:00 Test Item Value Reference Range Interpretation Comments Glucose Lvl (test code = Glucose Lvl) 88 70-99 [facility] HospitalCistomyKQEQFYLAOXPL3943-79-61 02:01:00 Test Item Value Reference Range Interpretation Comments Creatinine Lvl (test code = Creatinine 0.76 0.50-1.40 Lvl) [facility] CenterJsbnyyjXGLFPWBGCI7222-38-65 02:01:00 Test Item Value Reference Range Interpretation Comments Segs-Bands # (test code = Segs-Bands #) 5.4 1.5-8.1 [facility] CenterWbnndurPPAZCJNNFV3283-60-17 02:01:00 Test Item Value Reference Range Interpretation Comments Basophils (test code = 1.0 See_Comment [Aut omated message] The Basophils) system which ge nerated this result tra nsmitted reference range : <=1.0. The reference r kat was not used to int erpret this result as normal/abnormal . [facility] CenterFjptzceLUNIKAFZIK9671-43-88 02:01:00 Test Item Value Reference Range Interpretation Comments Monocytes # (test code 0.7 See_Comment [Aut omated message] The = Monocytes #) system which generated this result tra nsmitted reference range : <=0.8. The reference r kat was not used to int erpret this result as normal/abnormal . [facility] CenterLrbtltwNSTOZBOGMN8560-28-49 02:01:00 Test Item Value Reference Range Interpretation Comments Lymphocytes (test code = Lymphocytes) 35.1 20.0-40.0 [facility] CenterOxfznzxOPCTXIKGLM4737-37-94 02:01:00 Test Item Value Reference Range Interpretation Comments Lymphocytes # (test code = Lymphocytes 3.5 1.0-5.5 #) [facility] CenterYpkwbveKOCBMAHZJU8818-92-71 02:01:00 Test Item Value Reference Range Interpretation Comments Monocytes (test code = Monocytes) 6.7 2.0-12.0 [facility] CenterJqfgyjwNDIAXMWFUE0456-28-92 02:01:00 Test Item Value Reference Range Interpretation Comments Segs (test code = Segs) 54.8 45.0-75.0 [facility] CenterOcjmmkgXXXKRGFNIO5552-73-37 02:01:00 Test Item Value Reference Range Interpretation Comments Eosinophils (test code = 2.4 See_Comment [A utomated message] The Eosinophils) system which ge nerated this result tra nsmitted reference range : <=4.0. The reference r kat was not used to int erpret this result as normal/abnormal . [facility] CenterZfsahzrHOGLTWVHRU1667-55-34 02:01:00 Test Item Value Reference Range Interpretation Comments Basophils # (test code 0.1 See_Comment [Aut omated message] The = Basophils #) system which generated this result tra nsmitted reference range : <=0.2. The reference r kat was not used to int erpret this result as normal/abnormal . [facility] CenterQanplbwHZZTPAKCBG4173-28-40 02:01:00 Test Item Value Reference Range Interpretation Comments Microcyte (test code = 1+ *ABN*(09/17/15 Microcyte) 8:01 PM) [facility] CenterFdtuvkwIIWKFJZOXP7181-36-48 02:01:00 Test Item Value Reference Range Interpretation Comments Eosinophils # (test code 0.2 See_Comment [A utomated message] The = Eosinophils #) system whic h generated this result tra nsmitted reference range : <=0.5. The reference r kat was not used to int erpret this result as normal/abnormal . [facility] CenterQlqvwdmYIGZFFSXJX5011-78-87 02:01:00 Test Item Value Reference Range Interpretation Comments MPV (test code = MPV) 10.0 7.4-10.4 [facility] CenterVfyrvulRYFYVRYOYW5719-27-33 02:01:00 Test Item Value Reference Range Interpretation Comments RDW (test code = RDW) 16.9 11.5-14.5 [facility] CenterWpmtqhxAASBNAZVJA3368-69-96 02:01:00 Test Item Value Reference Range Interpretation Comments Platelet (test code = Platelet) 208 133-450 [facility] CenterOerguiwDINXRDZUTB6614-05-78 02:01:00 Test Item Value Reference Range Interpretation Comments MCV (test code = MCV) 77.9 80.0-98.0 [facility] CenterTxojljaONLLEMEFIZ7792-72-41 02:01:00 Test Item Value Reference Range Interpretation Comments MCH (test code = MCH) 24.2 pg 27.0-31.0 [facility] CenterZgbwazaAAKJOLBEWI7505-26-18 02:01:00 Test Item Value Reference Range Interpretation Comments MCHC (test code = MCHC) 31.1 32.0-36.0 [facility] CenterVrydhofHOJCWXHTUV4618-29-14 02:01:00 Test Item Value Reference Range Interpretation Comments Hgb (test code = Hgb) 13.3 12.0-16.0 [facility] CenterDodirxkYKHHZXLGJI9541-03-61 02:01:00 Test Item Value Reference Range Interpretation Comments Hct (test code = Hct) 42.6 36.0-48.0 [facility] CenterJtndirwHQULCTYFFZ5675-62-02 02:01:00 Test Item Value Reference Range Interpretation Comments WBC (test code = WBC) 9.9 3.7-10.4 [facility] CenterVdtrhnnRMJMHWDYZO0559-20-69 02:01:00 Test Item Value Reference Range Interpretation Comments RBC (test code = RBC) 5.47 4.20-5.40 [facility] UVDHA3378-48-27 02:01:00 Test Item Value Reference Range Interpretation Comments Lipase Lvl (test code = Lipase Lvl) 196 73-393 [facility] MYPLV7145-57-25 02:01:00 Test Item Value Reference Range Interpretation Comments Amylase Lvl (test code = Amylase Lvl) 33 25-115 [facility] HospitalIdartdvPVDPJTZZGJJL5662-61-67 02:01:00 Test Item Value Reference Range Interpretation Comments AGAP (test code = AGAP) 10.7 10.0-20.0 [facility] HospitalOgydtdtCVAOVWFEUZAP2658-73-81 02:01:00 Test Item Value Reference Range Interpretation Comments A/G Ratio (test code = A/G Ratio) 1.2 0.7-1.6 [facility] HospitalNxvlsbdEQFDANFJTMFA5558-45-72 02:01:00 Test Item Value Reference Range Interpretation Comments Globulin (test code = Globulin) 3.1 2.0-4.0 [facility] HospitalKvmhefeKIWIPKSIGVFO4173-13-04 02:01:00 Test Item Value Reference Range Interpretation Comments B/C Ratio (test code = B/C Ratio) 13 6-25 [facility] HospitalGeqhwkpWNHCRMWXTTFC6993-19-68 02:01:00 Test Item Value Reference Range Interpretation Comments Total Protein (test code = Total 6.9 6.4-8.4 Protein) [facility] HospitalSpcmrzoZLFYFWQMBVWD8964-95-89 02:01:00 Test Item Value Reference Range Interpretation Comments Calcium Lvl (test code = Calcium Lvl) 9.0 8.5-10.5 [facility] HospitalElhkjvoCEBDOZOGAVXC8828-02-66 02:01:00 Test Item Value Reference Range Interpretation Comments CO2 (test code = CO2) 26 24-32 [facility] HospitalHpqshhsTMLZMRKPRBRV5659-68-24 02:01:00 Test Item Value Reference Range Interpretation Comments eGFR (test code = eGFR) 110 [facility] HospitalYlvnltrPJLGCFYYWWQQ5355-40-04 02:01:00 Test Item Value Reference Range Interpretation Comments Bili Total (test code = Bili Total) 0.3 0.2-1.3 [facility] HospitalOuuhaxoMUHJMZCQABKS6044-67-83 02:01:00 Test Item Value Reference Range Interpretation Comments Alk Phos (test code = Alk Phos) 84 39-136 [facility] HospitalZmzkscgZFEZZQVCDZDI3976-87-80 02:01:00 Test Item Value Reference Range Interpretation Comments AST (test code = AST) 17 See_Comment [Auto mated message] The system which ge nerated this result transmit arvind reference range : <=37. The reference range was not used to interpr et this result as mario l/abnormal. [facility] HospitalWcjfwzpMCTXCBZTUCET1373-89-64 02:01:00 Test Item Value Reference Range Interpretation Comments ALT (test code = ALT) 42 See_Comment [Auto mated message] The system which ge nerated this result transmit arvind reference range : <=65. The reference range was not used to interpr et this result as mario l/abnormal. [facility] HospitalSwjsvmjSJIZVKKSQFAX7769-82-99 02:01:00 Test Item Value Reference Range Interpretation Comments Albumin Lvl (test code = Albumin Lvl) 3.8 3.5-5.0 [facility] HospitalQposxkoXSXEVLDIKYTN6864-17-00 02:01:00 Test Item Value Reference Range Interpretation Comments Sodium Lvl (test code = Sodium Lvl) 139 135-145 [facility] HospitalFbrwtofMCITJGYGFHGO7721-23-30 02:01:00 Test Item Value Reference Range Interpretation Comments Chloride Lvl (test code = Chloride Lvl) 106 95-109 [facility] HospitalTehjuwsPOJPRWCVOCEV6213-22-14 02:01:00 Test Item Value Reference Range Interpretation Comments Potassium Lvl (test code = Potassium 3.7 3.5-5.1 Lvl) [facility] HospitalJsvjkhoYEPTWFYMYQMK0841-68-32 02:01:00 Test Item Value Reference Range Interpretation Comments BUN (test code = BUN) 10 7-22 [facility] HospitalVepbvudBNJCSOVDPZXM3440-47-44 02:01:00 Test Item Value Reference Range Interpretation Comments Glucose Lvl (test code = Glucose Lvl) 88 70-99 [facility] HospitalQyvwyzaSBIYXCWQHMCU9496-04-01 02:01:00 Test Item Value Reference Range Interpretation Comments Creatinine Lvl (test code = Creatinine 0.76 0.50-1.40 Lvl) [facility] CenterKebvgumOAZQWPCHUI2393-71-83 02:01:00 Test Item Value Reference Range Interpretation Comments Segs-Bands # (test code = Segs-Bands #) 5.4 1.5-8.1 [facility] CenterEfznhwmTAOHWOQUAT2471-59-43 02:01:00 Test Item Value Reference Range Interpretation Comments Basophils (test code = 1.0 See_Comment [Aut omated message] The Basophils) system which ge nerated this result tra nsmitted reference range : <=1.0. The reference r kat was not used to int erpret this result as normal/abnormal . [facility] CenterOkkolomDHTWKXSDSG6504-46-92 02:01:00 Test Item Value Reference Range Interpretation Comments Monocytes # (test code 0.7 See_Comment [Aut omated message] The = Monocytes #) system which generated this result tra nsmitted reference range : <=0.8. The reference r kat was not used to int erpret this result as normal/abnormal . [facility] CenterAbhyqxaJZSOYNJTZJ2787-92-40 02:01:00 Test Item Value Reference Range Interpretation Comments Lymphocytes (test code = Lymphocytes) 35.1 20.0-40.0 [facility] CenterIkbwervHUKBWIYFKG8371-09-71 02:01:00 Test Item Value Reference Range Interpretation Comments Lymphocytes # (test code = Lymphocytes 3.5 1.0-5.5 #) [facility] CenterNxiicdkPGMEBSAKLK8664-83-88 02:01:00 Test Item Value Reference Range Interpretation Comments Monocytes (test code = Monocytes) 6.7 2.0-12.0 [facility] CenterVqsdafkISTYNSERAB1763-85-89 02:01:00 Test Item Value Reference Range Interpretation Comments Segs (test code = Segs) 54.8 45.0-75.0 [facility] CenterUtpzfkjNHCBUXQNZY8969-71-77 02:01:00 Test Item Value Reference Range Interpretation Comments Eosinophils (test code = 2.4 See_Comment [A utomated message] The Eosinophils) system which ge nerated this result tra nsmitted reference range : <=4.0. The reference r kat was not used to int erpret this result as normal/abnormal . [facility] CenterXgoieezYROBJELVQX0860-54-56 02:01:00 Test Item Value Reference Range Interpretation Comments Basophils # (test code 0.1 See_Comment [Aut omated message] The = Basophils #) system which generated this result tra nsmitted reference range : <=0.2. The reference r kat was not used to int erpret this result as normal/abnormal . [facility] CenterLcnvyniKGGHYHKAIN9052-02-39 02:01:00 Test Item Value Reference Range Interpretation Comments Microcyte (test code = 1+ *ABN*(09/17/15 Microcyte) 8:01 PM) [facility] CenterSnypazaCDZPWSPNDS2612-94-24 02:01:00 Test Item Value Reference Range Interpretation Comments Eosinophils # (test code 0.2 See_Comment [A utomated message] The = Eosinophils #) system whic h generated this result tra nsmitted reference range : <=0.5. The reference r kat was not used to int erpret this result as normal/abnormal . [facility] CenterUkusnhxOXXULMDXHE0452-98-40 02:01:00 Test Item Value Reference Range Interpretation Comments MPV (test code = MPV) 10.0 7.4-10.4 [facility] CenterRyvcrvnRRCVFYYDRU4987-04-54 02:01:00 Test Item Value Reference Range Interpretation Comments RDW (test code = RDW) 16.9 11.5-14.5 [facility] CenterSbuppsmDORDECJXPI9530-95-01 02:01:00 Test Item Value Reference Range Interpretation Comments Platelet (test code = Platelet) 208 133-450 [facility] CenterNigvzwdEYGJVRPCZU2187-63-83 02:01:00 Test Item Value Reference Range Interpretation Comments MCV (test code = MCV) 77.9 80.0-98.0 [facility] CenterKmukuzgGMEPBEFFEI5605-75-19 02:01:00 Test Item Value Reference Range Interpretation Comments MCH (test code = MCH) 24.2 pg 27.0-31.0 [facility] CenterPmxfckhCJUASWOVME5366-32-40 02:01:00 Test Item Value Reference Range Interpretation Comments MCHC (test code = MCHC) 31.1 32.0-36.0 [facility] [facility]AFCCOFLIIT4343[facility]76[facility]60 [facility]:01:00 Test Item Value Reference Range Interpretation Comments Hgb (test code = Hgb) 13.3 12.0-16.0 [facility]OsktbmgXEGWYRKMPR4053-93-69 02:01:00 Test Item Value Reference Range Interpretation Comments Hct (test code = Hct) 42.6 36.0-48.0 [facility] CenterAnxywncRPTXTMVHML7134-78-96 02:01:00 Test Item Value Reference Range Interpretation Comments WBC (test code = WBC) 9.9 3.7-10.4 [facility] CenterXvobvcpBAZICJNMYO0456-58-55 02:01:00 Test Item Value Reference Range Interpretation Comments RBC (test code = RBC) 5.47 4.20-5.40 [facility] SKDTU5555-50-36 02:01:00 Test Item Value Reference Range Interpretation Comments Lipase Lvl (test code = Lipase Lvl) 196 73-393 [facility] BACEY7246-84-67 02:01:00 Test Item Value Reference Range Interpretation Comments Amylase Lvl (test code = Amylase Lvl) 33 25-115 [facility]OjxdossMULCYXJONCYH9282-05-27 02:01:00 Test Item Value Reference Range Interpretation Comments AGAP (test code = AGAP) 10.7 10.0-20.0 [facility] HospitalXeortfgLJZGNVTWFZNC6985-41-80 02:01:00 Test Item Value Reference Range Interpretation Comments A/G Ratio (test code = A/G Ratio) 1.2 0.7-1.6 [facility] HospitalQtxdhdiOIRWLUXWLUTX4328-51-58 02:01:00 Test Item Value Reference Range Interpretation Comments Globulin (test code = Globulin) 3.1 2.0-4.0 [facility] HospitalWtjxewsKTMNZXJHMCXA0453-35-07 02:01:00 Test Item Value Reference Range Interpretation Comments B/C Ratio (test code = B/C Ratio) 13 6-25 [facility] HospitalBgzngpoPCFZWVZAMUUB5341-05-37 02:01:00 Test Item Value Reference Range Interpretation Comments Total Protein (test code = Total 6.9 6.4-8.4 Protein) [facility] HospitalDnhkgbdVHFBZWQHSVLD0823-32-62 02:01:00 Test Item Value Reference Range Interpretation Comments Calcium Lvl (test code = Calcium Lvl) 9.0 8.5-10.5 [facility] HospitalUussnlqNVTPGVKNMJTY7674-24-98 02:01:00 Test Item Value Reference Range Interpretation Comments CO2 (test code = CO2) 26 24-32 [facility] HospitalQzxlboeLCAJQWNIMGBX4159-69-78 02:01:00 Test Item Value Reference Range Interpretation Comments eGFR (test code = eGFR) 110 [facility] HospitalPchfcejULUPXIXCRTON7017-72-46 02:01:00 Test Item Value Reference Range Interpretation Comments Bili Total (test code = Bili Total) 0.3 0.2-1.3 [facility] HospitalAojiodsBCYJNGEQLYYV2977-34-16 02:01:00 Test Item Value Reference Range Interpretation Comments Alk Phos (test code = Alk Phos) 84 39-136 [facility] HospitalHkszdyjEXXFYRPNYFNA3230-30-02 02:01:00 Test Item Value Reference Range Interpretation Comments AST (test code = AST) 17 See_Comment [Auto mated message] The system which ge nerated this result transmit arvind reference range : <=37. The reference range was not used to interpr et this result as mario l/abnormal. [facility] HospitalTxxtmofUWVGRJFHQCPR6872-80-51 02:01:00 Test Item Value Reference Range Interpretation Comments ALT (test code = ALT) 42 See_Comment [Auto mated message] The system which ge nerated this result transmit arvind reference range : <=65. The reference range was not used to interpr et this result as mario l/abnormal. [facility] HospitalGdcdlziKHVKMCMZQMDD4720-62-13 02:01:00 Test Item Value Reference Range Interpretation Comments Albumin Lvl (test code = Albumin Lvl) 3.8 3.5-5.0 [facility] HospitalBzulwhhMNVQBQRIBLDI3491-22-81 02:01:00 Test Item Value Reference Range Interpretation Comments Sodium Lvl (test code = Sodium Lvl) 139 135-145 [facility] HospitalMfquvygZASRLYPHQXQM0548-66-64 02:01:00 Test Item Value Reference Range Interpretation Comments Chloride Lvl (test code = Chloride Lvl) 106 95-109 [facility] HospitalQwjzlviXHKMHFPBWPGD8319-90-19 02:01:00 Test Item Value Reference Range Interpretation Comments Potassium Lvl (test code = Potassium 3.7 3.5-5.1 Lvl) [facility] HospitalYxpkqcsWOXMLDQWQHRC6293-37-66 02:01:00 Test Item Value Reference Range Interpretation Comments BUN (test code = BUN) 10 7-22 [facility] HospitalHtuyqzlIQPKHVKEURIU1424-26-02 02:01:00 Test Item Value Reference Range Interpretation Comments Glucose Lvl (test code = Glucose Lvl) 88 70-99 [facility] HospitalYrvswtzBBFZLZLUBSET0355-85-39 02:01:00 Test Item Value Reference Range Interpretation Comments Creatinine Lvl (test code = Creatinine 0.76 0.50-1.40 Lvl) [facility] CenterFurlfadZLRLAZZUBF2019-23-48 02:01:00 Test Item Value Reference Range Interpretation Comments Segs-Bands # (test code = Segs-Bands #) 5.4 1.5-8.1 [facility] CenterMpqbfijXZHIFFRTQS9896-27-01 02:01:00 Test Item Value Reference Range Interpretation Comments Basophils (test code = 1.0 See_Comment [Aut omated message] The Basophils) system which ge nerated this result tra nsmitted reference range : <=1.0. The reference r kat was not used to int erpret this result as normal/abnormal . [facility] CenterFqbhdugTFZXVLPMEA2067-98-60 02:01:00 Test Item Value Reference Range Interpretation Comments Monocytes # (test code 0.7 See_Comment [Aut omated message] The = Monocytes #) system which generated this result tra nsmitted reference range : <=0.8. The reference r kat was not used to int erpret this result as normal/abnormal . [facility] CenterBbhlwtuUPUZIYZNNO5369-96-42 02:01:00 Test Item Value Reference Range Interpretation Comments Lymphocytes (test code = Lymphocytes) 35.1 20.0-40.0 [facility] CenterIvurpnlNJTVABCGYG7986-55-50 02:01:00 Test Item Value Reference Range Interpretation Comments Lymphocytes # (test code = Lymphocytes 3.5 1.0-5.5 #) [facility] CenterWuocetvHREPMJPWCI2274-73-09 02:01:00 Test Item Value Reference Range Interpretation Comments Monocytes (test code = Monocytes) 6.7 2.0-12.0 [facility] CenterAaeeovpYNMXVUDVBJ1481-91-54 02:01:00 Test Item Value Reference Range Interpretation Comments Segs (test code = Segs) 54.8 45.0-75.0 [facility] CenterAhmlzpyJKISMOUBEP1779-83-66 02:01:00 Test Item Value Reference Range Interpretation Comments Eosinophils (test code = 2.4 See_Comment [A utomated message] The Eosinophils) system which ge nerated this result tra nsmitted reference range : <=4.0. The reference r kat was not used to int erpret this result as normal/abnormal . [facility] CenterIvxiumxKWHONOWFDE2581-51-24 02:01:00 Test Item Value Reference Range Interpretation Comments Basophils # (test code 0.1 See_Comment [Aut omated message] The = Basophils #) system which generated this result tra nsmitted reference range : <=0.2. The reference r kat was not used to int erpret this result as normal/abnormal . [facility] CenterOavujmqEYMBNBNWWK5868-15-45 02:01:00 Test Item Value Reference Range Interpretation Comments Microcyte (test code = 1+ *ABN*(09/17/15 Microcyte) 8:01 PM) [facility] CenterJvblhpcGRAPXDRXZY0304-12-67 02:01:00 Test Item Value Reference Range Interpretation Comments Eosinophils # (test code 0.2 See_Comment [A utomated message] The = Eosinophils #) system whic h generated this result tra nsmitted reference range : <=0.5. The reference r kat was not used to int erpret this result as normal/abnormal . [facility] CenterIpoyjctEYSYYEXRHG9027-55-08 02:01:00 Test Item Value Reference Range Interpretation Comments MPV (test code = MPV) 10.0 7.4-10.4 [facility] CenterBuijfilLBUUNKLPOY3271-65-98 02:01:00 Test Item Value Reference Range Interpretation Comments RDW (test code = RDW) 16.9 11.5-14.5 [facility] CenterWwrhrolIRMZDMWTMN1133-52-57 02:01:00 Test Item Value Reference Range Interpretation Comments Platelet (test code = Platelet) 208 133-450 [facility] CenterHwodgqbTSCNLXQRPM4969-40-54 02:01:00 Test Item Value Reference Range Interpretation Comments MCV (test code = MCV) 77.9 80.0-98.0 [facility] CenterByfowhvFQBZVMWZQH8453-71-74 02:01:00 Test Item Value Reference Range Interpretation Comments MCH (test code = MCH) 24.2 pg 27.0-31.0 [facility] CenterNkqurghOMGZZGZSVE3712-22-85 02:01:00 Test Item Value Reference Range Interpretation Comments MCHC (test code = MCHC) 31.1 32.0-36.0 [facility] CenterSzoushcXYOPKDKIEL8325-04-87 02:01:00 Test Item Value Reference Range Interpretation Comments Hgb (test code = Hgb) 13.3 12.0-16.0 [facility] CenterBaywhqrAWTORGMUWV6687-17-99 02:01:00 Test Item Value Reference Range Interpretation Comments Hct (test code = Hct) 42.6 36.0-48.0 [facility] CenterUnsiivuRYQRYNVWQC4276-08-90 02:01:00 Test Item Value Reference Range Interpretation Comments WBC (test code = WBC) 9.9 3.7-10.4 [facility] CenterHdazhsjGHELGCVTWV7134-95-65 02:01:00 Test Item Value Reference Range Interpretation Comments RBC (test code = RBC) 5.47 4.20-5.40 [facility]2016-01-20 02:01:00 Test Item Value Reference Range Interpretation Comments Lipase Lvl (test code = Lipase Lvl) 196 73-393 [facility]2016-01-20 02:01:00 Test Item Value Reference Range Interpretation Comments Amylase Lvl (test code = Amylase Lvl) 33 25-115 [facility] HospitalJzsfdvuCRQZUEJSKHEG7871-00-54 02:01:00 Test Item Value Reference Range Interpretation Comments AGAP (test code = AGAP) 10.7 10.0-20.0 [facility] HospitalWhmfsbhEATTEWHJOFZX8837-13-65 02:01:00 Test Item Value Reference Range Interpretation Comments A/G Ratio (test code = A/G Ratio) 1.2 0.7-1.6 [facility] HospitalKxwjdndQEUCKHTZNDEF0503-19-65 02:01:00 Test Item Value Reference Range Interpretation Comments Globulin (test code = Globulin) 3.1 2.0-4.0 [facility] HospitalXpoogofGXYTWWEEXVBC8225-67-83 02:01:00 Test Item Value Reference Range Interpretation Comments B/C Ratio (test code = B/C Ratio) 13 6-25 [facility] HospitalZdjkopxZDPZMDWTBJGW2296-07-21 02:01:00 Test Item Value Reference Range Interpretation Comments Total Protein (test code = Total 6.9 6.4-8.4 Protein) [facility] HospitalYhgzcqgALWHQLKXBKVI7004-03-31 02:01:00 Test Item Value Reference Range Interpretation Comments Calcium Lvl (test code = Calcium Lvl) 9.0 8.5-10.5 [facility] HospitalDrzvdraJINNIITBUOVW2613-90-49 02:01:00 Test Item Value Reference Range Interpretation Comments CO2 (test code = CO2) 26 24-32 [facility] HospitalCyueywzFPPDZFLSZWGI5671-93-16 02:01:00 Test Item Value Reference Range Interpretation Comments eGFR (test code = eGFR) 110 [facility] HospitalHivamayORCLAQQEAGMF9475-80-95 02:01:00 Test Item Value Reference Range Interpretation Comments Bili Total (test code = Bili Total) 0.3 0.2-1.3 [facility] HospitalQggpcufIUUTNPYMDKVR6679-53-15 02:01:00 Test Item Value Reference Range Interpretation Comments Alk Phos (test code = Alk Phos) 84 39-136 [facility] HospitalTyhluvaFHVJXCCLHRDC7043-04-50 02:01:00 Test Item Value Reference Range Interpretation Comments AST (test code = AST) 17 See_Comment [Auto mated message] The system which ge nerated this result transmit arvind reference range : <=37. The reference range was not used to interpr et this result as mario l/abnormal. [facility] HospitalNtwpjzxWLDLIQIBJKWW9592-65-24 02:01:00 Test Item Value Reference Range Interpretation Comments ALT (test code = ALT) 42 See_Comment [Auto mated message] The system which ge nerated this result transmit arvind reference range : <=65. The reference range was not used to interpr et this result as mario l/abnormal. [facility] HospitalZnubcyzRDXDBCOOQYEB0270-51-43 02:01:00 Test Item Value Reference Range Interpretation Comments Albumin Lvl (test code = Albumin Lvl) 3.8 3.5-5.0 [facility] HospitalTjywgduOOKVACURYBFJ9278-97-37 02:01:00 Test Item Value Reference Range Interpretation Comments Sodium Lvl (test code = Sodium Lvl) 139 135-145 [facility] HospitalQgfmubeZXQHQSHMFGWH2677-03-54 02:01:00 Test Item Value Reference Range Interpretation Comments Chloride Lvl (test code = Chloride Lvl) 106 95-109 [facility] HospitalQwhqfdnJZIMNZTCRGNY9885-21-18 02:01:00 Test Item Value Reference Range Interpretation Comments Potassium Lvl (test code = Potassium 3.7 3.5-5.1 Lvl) [facility] HospitalTyxbugoMMONKKTXZKNH6634-63-80 02:01:00 Test Item Value Reference Range Interpretation Comments BUN (test code = BUN) 10 7-22 [facility] HospitalAqbtfgaSWQZYOZKBWKB4867-54-30 02:01:00 Test Item Value Reference Range Interpretation Comments Glucose Lvl (test code = Glucose Lvl) 88 70-99 [facility] HospitalEapdqcgLZDDZVQGRURK6041-67-23 02:01:00 Test Item Value Reference Range Interpretation Comments Creatinine Lvl (test code = Creatinine 0.76 0.50-1.40 Lvl) [facility] CenterTbldwivVQKMFWIGWK1149-62-74 02:01:00 Test Item Value Reference Range Interpretation Comments Segs-Bands # (test code = Segs-Bands #) 5.4 1.5-8.1 [facility] CenterWwhwnswYHTFPZSSYT2157-64-51 02:01:00 Test Item Value Reference Range Interpretation Comments Basophils (test code = 1.0 See_Comment [Aut omated message] The Basophils) system which ge nerated this result tra nsmitted reference range : <=1.0. The reference r kat was not used to int erpret this result as normal/abnormal . [facility] CenterKghjlhtZNWREFSWHM2725-75-76 02:01:00 Test Item Value Reference Range Interpretation Comments Monocytes # (test code 0.7 See_Comment [Aut omated message] The = Monocytes #) system which generated this result tra nsmitted reference range : <=0.8. The reference r kat was not used to int erpret this result as normal/abnormal . [facility] CenterGrtqjftHCGUMCMJYL5814-46-49 02:01:00 Test Item Value Reference Range Interpretation Comments Lymphocytes (test code = Lymphocytes) 35.1 20.0-40.0 [facility] CenterAbawsrcEMZKPWFRQW2203-83-02 02:01:00 Test Item Value Reference Range Interpretation Comments Lymphocytes # (test code = Lymphocytes 3.5 1.0-5.5 #) [facility] CenterQlvuvsvXOVNWUDWOP6680-70-95 02:01:00 Test Item Value Reference Range Interpretation Comments Monocytes (test code = Monocytes) 6.7 2.0-12.0 [facility] CenterFzztmumUSICZLGOQI8219-10-73 02:01:00 Test Item Value Reference Range Interpretation Comments Segs (test code = Segs) 54.8 45.0-75.0 [facility] CenterDpiihmxPFPNTGYHZJ3295-42-92 02:01:00 Test Item Value Reference Range Interpretation Comments Eosinophils (test code = 2.4 See_Comment [A utomated message] The Eosinophils) system which ge nerated this result tra nsmitted reference range : <=4.0. The reference r kat was not used to int erpret this result as normal/abnormal . [facility] CenterDqilqwqNHJYDOBVLE6205-75-83 02:01:00 Test Item Value Reference Range Interpretation Comments Basophils # (test code 0.1 See_Comment [Aut omated message] The = Basophils #) system which generated this result tra nsmitted reference range : <=0.2. The reference r kat was not used to int erpret this result as normal/abnormal . [facility] CenterCbyiqmpKRTHPGTWBB2571-39-05 02:01:00 Test Item Value Reference Range Interpretation Comments Microcyte (test code = 1+ *ABN*(09/17/15 Microcyte) 8:01 PM) [facility] CenterDuasljmUZGYLKUJQL6888-32-72 02:01:00 Test Item Value Reference Range Interpretation Comments Eosinophils # (test code 0.2 See_Comment [A utomated message] The = Eosinophils #) system whic h generated this result tra nsmitted reference range : <=0.5. The reference r kat was not used to int erpret this result as normal/abnormal . [facility] CenterVhmfitrOTAOGYAUKV0598-48-87 02:01:00 Test Item Value Reference Range Interpretation Comments MPV (test code = MPV) 10.0 7.4-10.4 [facility] CenterReidkcxRXDGGOGUPA7808-38-92 02:01:00 Test Item Value Reference Range Interpretation Comments RDW (test code = RDW) 16.9 11.5-14.5 [facility] CenterSinkjulZFATMPIVXU1150-27-94 02:01:00 Test Item Value Reference Range Interpretation Comments Platelet (test code = Platelet) 208 133-450 [facility] CenterKswpwneAPBLNXBMJU1298-89-60 02:01:00 Test Item Value Reference Range Interpretation Comments MCV (test code = MCV) 77.9 80.0-98.0 [facility] CenterLmaajeoCHZHJTBZMT7932-83-56 02:01:00 Test Item Value Reference Range Interpretation Comments MCH (test code = MCH) 24.2 pg 27.0-31.0 [facility] CenterHhblrlqOXUKXYTZUH0458-40-84 02:01:00 Test Item Value Reference Range Interpretation Comments MCHC (test code = MCHC) 31.1 32.0-36.0 [facility] CenterWkwjzznSHSXTKLHID2757-72-03 02:01:00 Test Item Value Reference Range Interpretation Comments Hgb (test code = Hgb) 13.3 12.0-16.0 [facility] CenterYuqlvdsOJCVTDJOTY5216-14-82 02:01:00 Test Item Value Reference Range Interpretation Comments Hct (test code = Hct) 42.6 36.0-48.0 [facility] CenterWxfjrptFVRMZNRCZL4253-00-80 02:01:00 Test Item Value Reference Range Interpretation Comments WBC (test code = WBC) 9.9 3.7-10.4 [facility] CenterDywwapuDLLDJAPAXK6264-84-75 02:01:00 Test Item Value Reference Range Interpretation Comments RBC (test code = RBC) 5.47 4.20-5.40 [facility]2016-01-20 02:01:00 Test Item Value Reference Range Interpretation Comments Lipase Lvl (test code = Lipase Lvl) 196 73-393 [facility]2016-01-20 02:01:00 Test Item Value Reference Range Interpretation Comments Amylase Lvl (test code = Amylase Lvl) 33 25-115 [facility] HospitalDvcljhaMSVKMSFETWMY5248-77-71 02:01:00 Test Item Value Reference Range Interpretation Comments AGAP (test code = AGAP) 10.7 10.0-20.0 [facility] HospitalKcoukvsMNPXTMLYSVGI4303-50-34 02:01:00 Test Item Value Reference Range Interpretation Comments A/G Ratio (test code = A/G Ratio) 1.2 0.7-1.6 [facility] HospitalIlhnblbHBWZJPGPCPDH6681-64-61 02:01:00 Test Item Value Reference Range Interpretation Comments Globulin (test code = Globulin) 3.1 2.0-4.0 [facility] HospitalTgrrzfmZLHAEPOKKICE6741-77-19 02:01:00 Test Item Value Reference Range Interpretation Comments B/C Ratio (test code = B/C Ratio) 13 6-25 [facility] HospitalVqpxuoeZMKPSDNQAPYF9163-93-62 02:01:00 Test Item Value Reference Range Interpretation Comments Total Protein (test code = Total 6.9 6.4-8.4 Protein) [facility] HospitalUjznfsrGKDLXUYRGJYF0079-45-75 02:01:00 Test Item Value Reference Range Interpretation Comments Calcium Lvl (test code = Calcium Lvl) 9.0 8.5-10.5 [facility] HospitalYepdlxoQZTOBQTVILLA1601-46-29 02:01:00 Test Item Value Reference Range Interpretation Comments CO2 (test code = CO2) 26 24-32 [facility] HospitalPcednfbCWMZFCDIBQLW3361-10-01 02:01:00 Test Item Value Reference Range Interpretation Comments eGFR (test code = eGFR) 110 [facility] HospitalKsnmyunWAAYUKQUZWYT9022-64-62 02:01:00 Test Item Value Reference Range Interpretation Comments Bili Total (test code = Bili Total) 0.3 0.2-1.3 [facility] HospitalNcjxktvEMVZXSQGXALX0227-68-40 02:01:00 Test Item Value Reference Range Interpretation Comments Alk Phos (test code = Alk Phos) 84 39-136 [facility] HospitalKxrtaawQUVMUHHHGLFC9435-58-54 02:01:00 Test Item Value Reference Range Interpretation Comments AST (test code = AST) 17 See_Comment [Auto mated message] The system which ge nerated this result transmit arvind reference range : <=37. The reference range was not used to interpr et this result as mario l/abnormal. [facility] HospitalEeffqqtBISHCBMYYKLN3574-23-96 02:01:00 Test Item Value Reference Range Interpretation Comments ALT (test code = ALT) 42 See_Comment [Auto mated message] The system which ge nerated this result transmit arvind reference range : <=65. The reference range was not used to interpr et this result as mario l/abnormal. [facility] HospitalQbgolrlMBZKIMAXEDIP7582-80-45 02:01:00 Test Item Value Reference Range Interpretation Comments Albumin Lvl (test code = Albumin Lvl) 3.8 3.5-5.0 [facility] HospitalOuzqknkRUVBXBCROILA6651-07-84 02:01:00 Test Item Value Reference Range Interpretation Comments Sodium Lvl (test code = Sodium Lvl) 139 135-145 [facility] HospitalSwfemmnIAAYBVVAPPJB1340-83-78 02:01:00 Test Item Value Reference Range Interpretation Comments Chloride Lvl (test code = Chloride Lvl) 106 95-109 [facility] HospitalZkzhmprBKXJBEUWBXSN8648-19-38 02:01:00 Test Item Value Reference Range Interpretation Comments Potassium Lvl (test code = Potassium 3.7 3.5-5.1 Lvl) [facility] HospitalWxdekvnJBMIRMHKOBUP5842-15-95 02:01:00 Test Item Value Reference Range Interpretation Comments BUN (test code = BUN) 10 7-22 [facility] HospitalZhifekbEDLRQWZVKSIO6252-08-32 02:01:00 Test Item Value Reference Range Interpretation Comments Glucose Lvl (test code = Glucose Lvl) 88 70-99 [facility] HospitalUpdkimsQLRBKMLMYDJI5284-11-75 02:01:00 Test Item Value Reference Range Interpretation Comments Creatinine Lvl (test code = Creatinine 0.76 0.50-1.40 Lvl) [facility] CenterDoxypxmHKDQMSXEFK8509-18-08 02:01:00 Test Item Value Reference Range Interpretation Comments Segs-Bands # (test code = Segs-Bands #) 5.4 1.5-8.1 [facility] CenterKflhagsKNEWWUUYKB0863-90-43 02:01:00 Test Item Value Reference Range Interpretation Comments Basophils (test code = 1.0 See_Comment [Aut omated message] The Basophils) system which ge nerated this result tra nsmitted reference range : <=1.0. The reference r kat was not used to int erpret this result as normal/abnormal . [facility] CenterViqltrzQGLSOBMLDF4383-24-27 02:01:00 Test Item Value Reference Range Interpretation Comments Monocytes # (test code 0.7 See_Comment [Aut omated message] The = Monocytes #) system which generated this result tra nsmitted reference range : <=0.8. The reference r kat was not used to int erpret this result as normal/abnormal . [facility] CenterYvoffixJZCZOQYUFM7999-26-26 02:01:00 Test Item Value Reference Range Interpretation Comments Lymphocytes (test code = Lymphocytes) 35.1 20.0-40.0 [facility] CenterVlcsyzqOIUHUXLAOE8866-38-06 02:01:00 Test Item Value Reference Range Interpretation Comments Lymphocytes # (test code = Lymphocytes 3.5 1.0-5.5 #) [facility] CenterKgnbicxOHIZHFGJBF0881-40-43 02:01:00 Test Item Value Reference Range Interpretation Comments Monocytes (test code = Monocytes) 6.7 2.0-12.0 [facility] CenterOgbqwhoJXNCWXPJPA4456-73-65 02:01:00 Test Item Value Reference Range Interpretation Comments Segs (test code = Segs) 54.8 45.0-75.0 [facility] CenterQirezwuGCMRXLKWDG3460-27-04 02:01:00 Test Item Value Reference Range Interpretation Comments Eosinophils (test code = 2.4 See_Comment [A utomated message] The Eosinophils) system which ge nerated this result tra nsmitted reference range : <=4.0. The reference r kat was not used to int erpret this result as normal/abnormal . [facility] CenterRicjwrjUDKVIGUEED9091-71-40 02:01:00 Test Item Value Reference Range Interpretation Comments Basophils # (test code 0.1 See_Comment [Aut omated message] The = Basophils #) system which generated this result tra nsmitted reference range : <=0.2. The reference r kat was not used to int erpret this result as normal/abnormal . [facility] CenterPcyfrviHVOXQDUENM2655-89-07 02:01:00 Test Item Value Reference Range Interpretation Comments Microcyte (test code = 1+ *ABN*(09/17/15 Microcyte) 8:01 PM) [facility] CenterKtxeztfPJPGVBFHBP4811-65-15 02:01:00 Test Item Value Reference Range Interpretation Comments Eosinophils # (test code 0.2 See_Comment [A utomated message] The = Eosinophils #) system whic h generated this result tra nsmitted reference range : <=0.5. The reference r kat was not used to int erpret this result as normal/abnormal . [facility] CenterXrhnqqcEGEPFVDFSL7657-61-44 02:01:00 Test Item Value Reference Range Interpretation Comments MPV (test code = MPV) 10.0 7.4-10.4 [facility] CenterVfqbertEDCQLBOYDN5165-33-38 02:01:00 Test Item Value Reference Range Interpretation Comments RDW (test code = RDW) 16.9 11.5-14.5 [facility] CenterJlswhpxVYGJTVQEES5633-74-04 02:01:00 Test Item Value Reference Range Interpretation Comments Platelet (test code = Platelet) 208 133-450 [facility] CenterAzuqxslQUBSVJAOQM5518-89-19 02:01:00 Test Item Value Reference Range Interpretation Comments MCV (test code = MCV) 77.9 80.0-98.0 [facility] CenterIuhoereMIEIJTWHIF5052-70-96 02:01:00 Test Item Value Reference Range Interpretation Comments MCH (test code = MCH) 24.2 pg 27.0-31.0 [facility] CenterVjyzhfhQVLNQJVARM0815-20-82 02:01:00 Test Item Value Reference Range Interpretation Comments MCHC (test code = MCHC) 31.1 32.0-36.0 [facility] CenterQeekudzTHFKXOUFHC1571-67-18 02:01:00 Test Item Value Reference Range Interpretation Comments Hgb (test code = Hgb) 13.3 12.0-16.0 [facility] CenterHdgynldGSPBLUIPLY5790-67-44 02:01:00 Test Item Value Reference Range Interpretation Comments Hct (test code = Hct) 42.6 36.0-48.0 [facility] CenterTfdsdeuEQCPBSRNTT0053-24-24 02:01:00 Test Item Value Reference Range Interpretation Comments WBC (test code = WBC) 9.9 3.7-10.4 [facility] CenterLtcqcjmLUGKETQAES2312-75-53 02:01:00 Test Item Value Reference Range Interpretation Comments RBC (test code = RBC) 5.47 4.20-5.40 [facility]2016-01-20 02:01:00 Test Item Value Reference Range Interpretation Comments Lipase Lvl (test code = Lipase Lvl) 196 73-393 [facility]2016-01-20 02:01:00 Test Item Value Reference Range Interpretation Comments Amylase Lvl (test code = Amylase Lvl) 33 25-115 [facility]PjbdmfxXWLQNKZRLDVY5815-94-10 02:01:00 Test Item Value Reference Range Interpretation Comments AGAP (test code = AGAP) 10.7 10.0-20.0 [facility] HospitalGjfhjehUALWBKZSQDWV1516-96-08 02:01:00 Test Item Value Reference Range Interpretation Comments A/G Ratio (test code = A/G Ratio) 1.2 0.7-1.6 [facility] HospitalKtzyqrhEPSBOEARYNZL9754-28-66 02:01:00 Test Item Value Reference Range Interpretation Comments Globulin (test code = Globulin) 3.1 2.0-4.0 [facility] HospitalSqxrdaxAEMRSJYZPGEE2533-91-47 02:01:00 Test Item Value Reference Range Interpretation Comments B/C Ratio (test code = B/C Ratio) 13 6-25 [facility] HospitalElhfqrpLXSOOYPQIEMH3300-33-87 02:01:00 Test Item Value Reference Range Interpretation Comments Total Protein (test code = Total 6.9 6.4-8.4 Protein) [facility] HospitalCogjdrkOIZZJNCOGTSJ3860-25-13 02:01:00 Test Item Value Reference Range Interpretation Comments Calcium Lvl (test code = Calcium Lvl) 9.0 8.5-10.5 [facility] HospitalMkwvtetXTSCJMZCKQUY0186-10-72 02:01:00 Test Item Value Reference Range Interpretation Comments CO2 (test code = CO2) 26 24-32 [facility] HospitalPkwtlooQNUKZJXPYAGG2054-59-79 02:01:00 Test Item Value Reference Range Interpretation Comments eGFR (test code = eGFR) 110 [facility] HospitalLpsxpoyUWJYRCLXRRQF9536-72-14 02:01:00 Test Item Value Reference Range Interpretation Comments Bili Total (test code = Bili Total) 0.3 0.2-1.3 [facility] HospitalPypxkyxDFKCKHHNBOGX1666-41-48 02:01:00 Test Item Value Reference Range Interpretation Comments Alk Phos (test code = Alk Phos) 84 39-136 [facility] HospitalRgduimzLRJURNREXRWQ0556-72-22 02:01:00 Test Item Value Reference Range Interpretation Comments AST (test code = AST) 17 See_Comment [Auto mated message] The system which ge nerated this result transmit arvind reference range : <=37. The reference range was not used to interpr et this result as mario l/abnormal. [facility] HospitalEbdmkbfTEXHNGOMVIBP8764-07-43 02:01:00 Test Item Value Reference Range Interpretation Comments ALT (test code = ALT) 42 See_Comment [Auto mated message] The system which ge nerated this result transmit arvind reference range : <=65. The reference range was not used to interpr et this result as mario l/abnormal. [facility] HospitalMcpbjvxFOXNHYMYHQUH3577-38-49 02:01:00 Test Item Value Reference Range Interpretation Comments Albumin Lvl (test code = Albumin Lvl) 3.8 3.5-5.0 [facility] HospitalZijtpexHULJBZMVRIUB1950-60-60 02:01:00 Test Item Value Reference Range Interpretation Comments Sodium Lvl (test code = Sodium Lvl) 139 135-145 [facility] HospitalLmnrgacUXDWAUMSRFFX6035-42-53 02:01:00 Test Item Value Reference Range Interpretation Comments Chloride Lvl (test code = Chloride Lvl) 106 95-109 [facility] HospitalMnldqgaUNBDUACCQGWH2145-46-80 02:01:00 Test Item Value Reference Range Interpretation Comments Potassium Lvl (test code = Potassium 3.7 3.5-5.1 Lvl) [facility] HospitalGtxnkrkVTNKQZZWEGOJ5285-99-34 02:01:00 Test Item Value Reference Range Interpretation Comments BUN (test code = BUN) 10 7-22 [facility] HospitalVwndkqvBJBETTLDZIPL2390-78-96 02:01:00 Test Item Value Reference Range Interpretation Comments Glucose Lvl (test code = Glucose Lvl) 88 70-99 [facility] HospitalGnevmdxFHCBQQAUTGDL6689-84-57 02:01:00 Test Item Value Reference Range Interpretation Comments Creatinine Lvl (test code = Creatinine 0.76 0.50-1.40 Lvl) [facility] CenterQscfpcjCMNSHGXJZR4118-00-11 02:01:00 Test Item Value Reference Range Interpretation Comments Segs-Bands # (test code = Segs-Bands #) 5.4 1.5-8.1 [facility] CenterEoglrobADVDJDCSSS5178-98-00 02:01:00 Test Item Value Reference Range Interpretation Comments Basophils (test code = 1.0 See_Comment [Aut omated message] The Basophils) system which ge nerated this result tra nsmitted reference range : <=1.0. The reference r kat was not used to int erpret this result as normal/abnormal . [facility] CenterKwaerzvUNOZXHEHDZ5834-92-05 02:01:00 Test Item Value Reference Range Interpretation Comments Monocytes # (test code 0.7 See_Comment [Aut omated message] The = Monocytes #) system which generated this result tra nsmitted reference range : <=0.8. The reference r kat was not used to int erpret this result as normal/abnormal . [facility] CenterAjuigyrJUPLVWYLGN1106-86-56 02:01:00 Test Item Value Reference Range Interpretation Comments Lymphocytes (test code = Lymphocytes) 35.1 20.0-40.0 [facility] CenterOymkghmRCURPZDEEX6879-85-02 02:01:00 Test Item Value Reference Range Interpretation Comments Lymphocytes # (test code = Lymphocytes 3.5 1.0-5.5 #) [facility] CenterTfqjddrPMAYZEUJGO8448-14-31 02:01:00 Test Item Value Reference Range Interpretation Comments Monocytes (test code = Monocytes) 6.7 2.0-12.0 [facility] CenterAtxfiqkACLJVFRQNO4853-32-61 02:01:00 Test Item Value Reference Range Interpretation Comments Segs (test code = Segs) 54.8 45.0-75.0 [facility] CenterRyizfqeGWWQNSJUTG1312-31-81 02:01:00 Test Item Value Reference Range Interpretation Comments Eosinophils (test code = 2.4 See_Comment [A utomated message] The Eosinophils) system which ge nerated this result tra nsmitted reference range : <=4.0. The reference r kat was not used to int erpret this result as normal/abnormal . [facility] CenterTgutyfyHBTZAEPCCF6746-28-33 02:01:00 Test Item Value Reference Range Interpretation Comments Basophils # (test code 0.1 See_Comment [Aut omated message] The = Basophils #) system which generated this result tra nsmitted reference range : <=0.2. The reference r kat was not used to int erpret this result as normal/abnormal . [facility] CenterFqrqbmwDMSAWGAHCA2097-06-06 02:01:00 Test Item Value Reference Range Interpretation Comments Microcyte (test code = 1+ *ABN*(09/17/15 Microcyte) 8:01 PM) [facility] CenterHljxnkjLRFRDPMOJN2362-21-95 02:01:00 Test Item Value Reference Range Interpretation Comments Eosinophils # (test code 0.2 See_Comment [A utomated message] The = Eosinophils #) system whic h generated this result tra nsmitted reference range : <=0.5. The reference r kat was not used to int erpret this result as normal/abnormal . [facility] CenterEbddeixVHPUZJVOGR6415-38-69 02:01:00 Test Item Value Reference Range Interpretation Comments MPV (test code = MPV) 10.0 7.4-10.4 [facility] CenterHuzrrzgANWJZUYGRW5335-99-40 02:01:00 Test Item Value Reference Range Interpretation Comments RDW (test code = RDW) 16.9 11.5-14.5 [facility] CenterAsovjtbGAFCYRGDBW5887-45-48 02:01:00 Test Item Value Reference Range Interpretation Comments Platelet (test code = Platelet) 208 133-450 [facility] CenterMztzbnnDBYAGKYMYQ8396-52-96 02:01:00 Test Item Value Reference Range Interpretation Comments MCV (test code = MCV) 77.9 80.0-98.0 [facility] CenterFoqmbzgWSAJSXPRSD2368-75-60 02:01:00 Test Item Value Reference Range Interpretation Comments MCH (test code = MCH) 24.2 pg 27.0-31.0 [facility] CenterMdclqdyOHQQWLMAFQ3609-56-25 02:01:00 Test Item Value Reference Range Interpretation Comments MCHC (test code = MCHC) 31.1 32.0-36.0 [facility] CenterXinimttNXECSSLFYC5484-94-94 02:01:00 Test Item Value Reference Range Interpretation Comments Hgb (test code = Hgb) 13.3 12.0-16.0 [facility] CenterVuvvxtmSYDEXMBUAY6676-51-23 02:01:00 Test Item Value Reference Range Interpretation Comments Hct (test code = Hct) 42.6 36.0-48.0 [facility] CenterOqfdyhbNJDUFKPHQU7621-42-00 02:01:00 Test Item Value Reference Range Interpretation Comments WBC (test code = WBC) 9.9 3.7-10.4 [facility] CenterShrppefFGSYLLPPQU2216-64-90 02:01:00 Test Item Value Reference Range Interpretation Comments RBC (test code = RBC) 5.47 4.20-5.40 [facility]2016-01-20 02:01:00 Test Item Value Reference Range Interpretation Comments Lipase Lvl (test code = Lipase Lvl) 196 73-393 [facility]2016-01-20 02:01:00 Test Item Value Reference Range Interpretation Comments Amylase Lvl (test code = Amylase Lvl) 33 25-115 [facility] HospitalRqgrilzLFYQOIZWBOSC8233-42-88 02:01:00 Test Item Value Reference Range Interpretation Comments AGAP (test code = AGAP) 10.7 10.0-20.0 [facility] HospitalWsuymqlLBTZQJTJGENW8818-32-67 02:01:00 Test Item Value Reference Range Interpretation Comments A/G Ratio (test code = A/G Ratio) 1.2 0.7-1.6 [facility] HospitalQswbourGETVMLHKRBFV3202-19-44 02:01:00 Test Item Value Reference Range Interpretation Comments Globulin (test code = Globulin) 3.1 2.0-4.0 [facility] HospitalEbbhdbqMZWBBKAVLMMK1173-09-89 02:01:00 Test Item Value Reference Range Interpretation Comments B/C Ratio (test code = B/C Ratio) 13 6-25 [facility] HospitalHejjppnVAPTDDZQNRVU0065-40-79 02:01:00 Test Item Value Reference Range Interpretation Comments Total Protein (test code = Total 6.9 6.4-8.4 Protein) [facility] HospitalBvxalaoUXVCIYNHKKTL8836-26-76 02:01:00 Test Item Value Reference Range Interpretation Comments Calcium Lvl (test code = Calcium Lvl) 9.0 8.5-10.5 [facility] HospitalRokzohhRYLLMUHVZQMQ1996-31-98 02:01:00 Test Item Value Reference Range Interpretation Comments CO2 (test code = CO2) 26 24-32 [facility] HospitalQipgssiCVLNBRMYLCXU0322-74-33 02:01:00 Test Item Value Reference Range Interpretation Comments eGFR (test code = eGFR) 110 [facility] HospitalAprgaojMYIXOEYUICVD0621-95-50 02:01:00 Test Item Value Reference Range Interpretation Comments Bili Total (test code = Bili Total) 0.3 0.2-1.3 [facility] HospitalEanynkzADUEYFGJSWGJ9889-23-05 02:01:00 Test Item Value Reference Range Interpretation Comments Alk Phos (test code = Alk Phos) 84 39-136 [facility] HospitalPuqsffaMRDKNUBQEJSH0915-20-87 02:01:00 Test Item Value Reference Range Interpretation Comments AST (test code = AST) 17 See_Comment [Auto mated message] The system which ge nerated this result transmit arvind reference range : <=37. The reference range was not used to interpr et this result as mario l/abnormal. [facility] HospitalYgzbqudDPKVXVPQQUVD5686-99-19 02:01:00 Test Item Value Reference Range Interpretation Comments ALT (test code = ALT) 42 See_Comment [Auto mated message] The system which ge nerated this result transmit arvind reference range : <=65. The reference range was not used to interpr et this result as mario l/abnormal. [facility] HospitalBicllpcNLEISTQOVEDU5799-00-68 02:01:00 Test Item Value Reference Range Interpretation Comments Albumin Lvl (test code = Albumin Lvl) 3.8 3.5-5.0 [facility] HospitalLmzfdeaNTAWXRIKZTLM8529-14-33 02:01:00 Test Item Value Reference Range Interpretation Comments Sodium Lvl (test code = Sodium Lvl) 139 135-145 [facility] HospitalLnlgttzVCVRPLBTRVZH1733-18-07 02:01:00 Test Item Value Reference Range Interpretation Comments Chloride Lvl (test code = Chloride Lvl) 106 95-109 [facility] HospitalPeucvxiPJQIQTQIENMO9094-53-43 02:01:00 Test Item Value Reference Range Interpretation Comments Potassium Lvl (test code = Potassium 3.7 3.5-5.1 Lvl) [facility] HospitalDqbsukwNOMGIEPQKHBF3459-31-46 02:01:00 Test Item Value Reference Range Interpretation Comments BUN (test code = BUN) 10 7-22 [facility] HospitalNlhbqjgAAMFQLKIMTED2371-35-77 02:01:00 Test Item Value Reference Range Interpretation Comments Glucose Lvl (test code = Glucose Lvl) 88 70-99 [facility] HospitalMajrvutIUSLXSNVAJSG0409-51-89 02:01:00 Test Item Value Reference Range Interpretation Comments Creatinine Lvl (test code = Creatinine 0.76 0.50-1.40 Lvl) [facility] CenterRuoafekMMJGJCPOPZ1105-49-63 02:01:00 Test Item Value Reference Range Interpretation Comments Segs-Bands # (test code = Segs-Bands #) 5.4 1.5-8.1 [facility] CenterIukdnqfYMKIXBSGLB1788-64-88 02:01:00 Test Item Value Reference Range Interpretation Comments Basophils (test code = 1.0 See_Comment [Aut omated message] The Basophils) system which ge nerated this result tra nsmitted reference range : <=1.0. The reference r kat was not used to int erpret this result as normal/abnormal . [facility] CenterVgqbbzhXXSDSHJSBM3585-26-86 02:01:00 Test Item Value Reference Range Interpretation Comments Monocytes # (test code 0.7 See_Comment [Aut omated message] The = Monocytes #) system which generated this result tra nsmitted reference range : <=0.8. The reference r kat was not used to int erpret this result as normal/abnormal . [facility] CenterWsjiyzbVLLTQZLJCZ4331-57-11 02:01:00 Test Item Value Reference Range Interpretation Comments Lymphocytes (test code = Lymphocytes) 35.1 20.0-40.0 [facility] CenterTlukintZRLEDILBTK1034-58-24 02:01:00 Test Item Value Reference Range Interpretation Comments Lymphocytes # (test code = Lymphocytes 3.5 1.0-5.5 #) [facility] CenterSfntevaCUDKVDJBDP3510-22-63 02:01:00 Test Item Value Reference Range Interpretation Comments Monocytes (test code = Monocytes) 6.7 2.0-12.0 [facility] CenterHutlcldUTFAPEVCLP3226-94-47 02:01:00 Test Item Value Reference Range Interpretation Comments Segs (test code = Segs) 54.8 45.0-75.0 [facility] CenterEwcaavdKLKGHYJGUV7530-43-96 02:01:00 Test Item Value Reference Range Interpretation Comments Eosinophils (test code = 2.4 See_Comment [A utomated message] The Eosinophils) system which ge nerated this result tra nsmitted reference range : <=4.0. The reference r kat was not used to int erpret this result as normal/abnormal . [facility] CenterMxxyzarSFOHPRNSUZ8910-43-50 02:01:00 Test Item Value Reference Range Interpretation Comments Basophils # (test code 0.1 See_Comment [Aut omated message] The = Basophils #) system which generated this result tra nsmitted reference range : <=0.2. The reference r kat was not used to int erpret this result as normal/abnormal . [facility] CenterXncutnsSFWMMCKCIU6101-70-22 02:01:00 Test Item Value Reference Range Interpretation Comments Microcyte (test code = 1+ *ABN*(09/17/15 Microcyte) 8:01 PM) [facility] CenterRxvxkuuKBIPOJZYDV4073-34-65 02:01:00 Test Item Value Reference Range Interpretation Comments Eosinophils # (test code 0.2 See_Comment [A utomated message] The = Eosinophils #) system whic h generated this result tra nsmitted reference range : <=0.5. The reference r kat was not used to int erpret this result as normal/abnormal . [facility] CenterFvzddspZSEJXIIPTU0227-44-50 02:01:00 Test Item Value Reference Range Interpretation Comments MPV (test code = MPV) 10.0 7.4-10.4 [facility] CenterXrhhxylUZDIMRFDNK5183-07-29 02:01:00 Test Item Value Reference Range Interpretation Comments RDW (test code = RDW) 16.9 11.5-14.5 [facility] CenterCufhnjpXCWAMNXSLD9813-29-38 02:01:00 Test Item Value Reference Range Interpretation Comments Platelet (test code = Platelet) 208 133-450 [facility] CenterEoxxumxLCRNKVJXIY7516-79-11 02:01:00 Test Item Value Reference Range Interpretation Comments MCV (test code = MCV) 77.9 80.0-98.0 [facility] CenterSljnvayXJKHPEXTBR5713-22-63 02:01:00 Test Item Value Reference Range Interpretation Comments MCH (test code = MCH) 24.2 pg 27.0-31.0 [facility] CenterRraktrxFMCEYNMMVL8666-55-67 02:01:00 Test Item Value Reference Range Interpretation Comments MCHC (test code = MCHC) 31.1 32.0-36.0 [facility] CenterOkgipzyFGVIAFCFIU7805-39-41 02:01:00 Test Item Value Reference Range Interpretation Comments Hgb (test code = Hgb) 13.3 12.0-16.0 [facility] CenterGumsutkSJMPYZZGCS3707-21-24 02:01:00 Test Item Value Reference Range Interpretation Comments Hct (test code = Hct) 42.6 36.0-48.0 [facility] CenterOobnumiULXMBLXDRV9265-14-02 02:01:00 Test Item Value Reference Range Interpretation Comments WBC (test code = WBC) 9.9 3.7-10.4 [facility] CenterBbpvvdcIAXKLCACGP3732-67-96 02:01:00 Test Item Value Reference Range Interpretation Comments RBC (test code = RBC) 5.47 4.20-5.40 [facility]2016-01-20 02:01:00 Test Item Value Reference Range Interpretation Comments Lipase Lvl (test code = Lipase Lvl) 196 73-393 [facility]2016-01-20 02:01:00 Test Item Value Reference Range Interpretation Comments Amylase Lvl (test code = Amylase Lvl) 33 25-115 [facility] HospitalSfwxggrUQHOFNFFCEMB1736-24-35 02:01:00 Test Item Value Reference Range Interpretation Comments AGAP (test code = AGAP) 10.7 10.0-20.0 [facility] HospitalSidnpirLWBIMKHZMGIX8678-80-20 02:01:00 Test Item Value Reference Range Interpretation Comments A/G Ratio (test code = A/G Ratio) 1.2 0.7-1.6 [facility] HospitalWlprihfZPINQSUKVAWJ0695-93-79 02:01:00 Test Item Value Reference Range Interpretation Comments Globulin (test code = Globulin) 3.1 2.0-4.0 [facility] HospitalHqkmfecFHVAVQCXPYRR0697-16-89 02:01:00 Test Item Value Reference Range Interpretation Comments B/C Ratio (test code = B/C Ratio) 13 6-25 [facility] HospitalPiqkkupMNAYHWNMIYBN9862-74-39 02:01:00 Test Item Value Reference Range Interpretation Comments Total Protein (test code = Total 6.9 6.4-8.4 Protein) [facility] HospitalHegxgduCWHJPUHBVPVR4714-47-35 02:01:00 Test Item Value Reference Range Interpretation Comments Calcium Lvl (test code = Calcium Lvl) 9.0 8.5-10.5 [facility] HospitalEuvekrjBUJRTLEILCUJ3788-59-77 02:01:00 Test Item Value Reference Range Interpretation Comments CO2 (test code = CO2) 26 24-32 [facility] HospitalSpohjgwVWYOSWFWSNMY9043-15-73 02:01:00 Test Item Value Reference Range Interpretation Comments eGFR (test code = eGFR) 110 [facility] HospitalCkoiovoOGHEMMJLUDFW8378-46-19 02:01:00 Test Item Value Reference Range Interpretation Comments Bili Total (test code = Bili Total) 0.3 0.2-1.3 [facility] XRHKU8967-86-70 02:01:00 Test Item Value Reference Range Interpretation Comments Lipase Lvl (test code = Lipase Lvl) 196 73-393 [facility] HospitalBiocro[facility] HOOGA0499-17-92 02:01:00 Test Item Value Reference Range Interpretation Comments Amylase Lvl (test code = Amylase Lvl) 33 25-115 [facility] HospitalMusujqgKDYXBOPJOZAS7223-16-22 02:01:00 Test Item Value Reference Range Interpretation Comments AGAP (test code = AGAP) 10.7 10.0-20.0 [facility] HospitalBwxhevmMGOHJGKKSQEB6666-19-45 02:01:00 Test Item Value Reference Range Interpretation Comments A/G Ratio (test code = A/G Ratio) 1.2 0.7-1.6 [facility] HospitalYgvrcmyXIKGBKYQKLKV2688-49-87 02:01:00 Test Item Value Reference Range Interpretation Comments Globulin (test code = Globulin) 3.1 2.0-4.0 [facility] HospitalFrybibwXXAEQTCKPEJS2653-02-42 02:01:00 Test Item Value Reference Range Interpretation Comments B/C Ratio (test code = B/C Ratio) 13 6-25 [facility] HospitalOwmrferVREPVDXXUPMC9148-40-00 02:01:00 Test Item Value Reference Range Interpretation Comments Total Protein (test code = Total 6.9 6.4-8.4 Protein) [facility] HospitalZvcmmvbNXXITOZZXESE3380-64-81 02:01:00 Test Item Value Reference Range Interpretation Comments Calcium Lvl (test code = Calcium Lvl) 9.0 8.5-10.5 [facility] HospitalRmuokqiJKVSLJUCVGLI9090-49-01 02:01:00 Test Item Value Reference Range Interpretation Comments Alk Phos (test code = Alk Phos) 84 39-136 [facility] HospitalTfnlkbqZNELEGKKFXUF4773-13-99 02:01:00 Test Item Value Reference Range Interpretation Comments CO2 (test code = CO2) 26 24-32 [facility] HospitalBuafwrsTQGKGPRUKCFR7479-72-24 02:01:00 Test Item Value Reference Range Interpretation Comments eGFR (test code = eGFR) 110 [facility]VhomorjSJUHRRLDMUCU7285-69-66 02:01:00 Test Item Value Reference Range Interpretation Comments Bili Total (test code = Bili Total) 0.3 0.2-1.3 [facility] HospitalCveliatXAXUNKOTRMWW7153-29-67 02:01:00 Test Item Value Reference Range Interpretation Comments Alk Phos (test code = Alk Phos) 84 39-136 [facility] HospitalHplpsabWULQZLKHAMUO4908-40-09 02:01:00 Test Item Value Reference Range Interpretation Comments AST (test code = AST) 17 See_Comment [Auto mated message] The system which ge nerated this result transmit arvind reference range : <=37. The reference range was not used to interpr et this result as mario l/abnormal. [facility] HospitalZzxojyoMLDAYELFUDCR2731-80-62 02:01:00 Test Item Value Reference Range Interpretation Comments ALT (test code = ALT) 42 See_Comment [Auto mated message] The system which ge nerated this result transmit arvind reference range : <=65. The reference range was not used to interpr et this result as mario l/abnormal. [facility] HospitalJdngoiuYQYKJRJJNCIN2607-43-27 02:01:00 Test Item Value Reference Range Interpretation Comments Albumin Lvl (test code = Albumin Lvl) 3.8 3.5-5.0 [facility] HospitalQbzsrmrRUVCUIPDEPTL8973-04-38 02:01:00 Test Item Value Reference Range Interpretation Comments Sodium Lvl (test code = Sodium Lvl) 139 135-145 [facility] HospitalBrtdcjmLYGPUABOVNLT7458-57-66 02:01:00 Test Item Value Reference Range Interpretation Comments Chloride Lvl (test code = Chloride Lvl) 106 95-109 [facility] HospitalRbehbpcEWPCGPKBPKBJ6759-97-26 02:01:00 Test Item Value Reference Range Interpretation Comments Potassium Lvl (test code = Potassium 3.7 3.5-5.1 Lvl) [facility] HospitalFlynppwHRINZTRNKWRD8655-08-91 02:01:00 Test Item Value Reference Range Interpretation Comments AST (test code = AST) 17 See_Comment [Auto mated message] The system which ge nerated this result transmit arvind reference range : <=37. The reference range was not used to interpr et this result as mario l/abnormal. [facility] HospitalUrfshxsKTEPSYEZTNOF7160-79-14 02:01:00 Test Item Value Reference Range Interpretation Comments BUN (test code = BUN) 10 7-22 [facility] HospitalBddnnwrSLOQGDZCTZYD9834-72-55 02:01:00 Test Item Value Reference Range Interpretation Comments Glucose Lvl (test code = Glucose Lvl) 88 70-99 [facility] HospitalYvhroxwEVPZAHYGQOID7585-26-61 02:01:00 Test Item Value Reference Range Interpretation Comments Creatinine Lvl (test code = Creatinine 0.76 0.50-1.40 Lvl) [facility] CenterFjijjdmZPMVGZTTAW8252-46-98 02:01:00 Test Item Value Reference Range Interpretation Comments Segs-Bands # (test code = Segs-Bands #) 5.4 1.5-8.1 [facility] CenterMtgsiudHNJVNBEZVN0214-07-35 02:01:00 Test Item Value Reference Range Interpretation Comments Basophils (test code = 1.0 See_Comment [Aut omated message] The Basophils) system which ge nerated this result tra nsmitted reference range : <=1.0. The reference r kat was not used to int erpret this result as normal/abnormal . [facility] CenterJghazdsSIRKKHLFZB1349-51-51 02:01:00 Test Item Value Reference Range Interpretation Comments Monocytes # (test code 0.7 See_Comment [Aut omated message] The = Monocytes #) system which generated this result tra nsmitted reference range : <=0.8. The reference r kat was not used to int erpret this result as normal/abnormal . [facility] CenterTjjjzvpKKSNNNUNLO3759-55-21 02:01:00 Test Item Value Reference Range Interpretation Comments Lymphocytes (test code = Lymphocytes) 35.1 20.0-40.0 [facility] CenterIoxqldjOGPCQZVIKF8100-37-79 02:01:00 Test Item Value Reference Range Interpretation Comments Lymphocytes # (test code = Lymphocytes 3.5 1.0-5.5 #) [facility] CenterRrzgsroZDUIPRPWLU4127-85-02 02:01:00 Test Item Value Reference Range Interpretation Comments Monocytes (test code = Monocytes) 6.7 2.0-12.0 [facility] CenterPsxlxdsIUWFVHBSGO1877-64-42 02:01:00 Test Item Value Reference Range Interpretation Comments Segs (test code = Segs) 54.8 45.0-75.0 [facility]UpztlnhAVPBRYEMJHLO9967-75-18 02:01:00 Test Item Value Reference Range Interpretation Comments ALT (test code = ALT) 42 See_Comment [Auto mated message] The system which ge nerated this result transmit arvind reference range : <=65. The reference range was not used to interpr et this result as mario l/abnormal. [facility] CenterVxjthqxNMKNGWDGSA3033-92-22 02:01:00 Test Item Value Reference Range Interpretation Comments Eosinophils (test code = 2.4 See_Comment [A utomated message] The Eosinophils) system which ge nerated this result tra nsmitted reference range : <=4.0. The reference r kat was not used to int erpret this result as normal/abnormal . [facility] CenterZvpegzzXRPJQTYVIX1535-49-88 02:01:00 Test Item Value Reference Range Interpretation Comments Basophils # (test code 0.1 See_Comment [Aut omated message] The = Basophils #) system which generated this result tra nsmitted reference range : <=0.2. The reference r kat was not used to int erpret this result as normal/abnormal . [facility] CenterSdwicssXXTPMAYETC0975-45-72 02:01:00 Test Item Value Reference Range Interpretation Comments Microcyte (test code = 1+ *ABN*(09/17/15 Microcyte) 8:01 PM) [facility] CenterEmglbkjPREDEAKGXY7512-47-65 02:01:00 Test Item Value Reference Range Interpretation Comments Eosinophils # (test code 0.2 See_Comment [A utomated message] The = Eosinophils #) system whic h generated this result tra nsmitted reference range : <=0.5. The reference r kat was not used to int erpret this result as normal/abnormal . [facility] CenterKkaqlnmGBOZBFKQYB2781-49-72 02:01:00 Test Item Value Reference Range Interpretation Comments MPV (test code = MPV) 10.0 7.4-10.4 [facility] CenterBelzxqgZYBKQSLGHE1390-75-10 02:01:00 Test Item Value Reference Range Interpretation Comments RDW (test code = RDW) 16.9 11.5-14.5 [facility] CenterNvcsbcrYKROZXYKHX0545-07-50 02:01:00 Test Item Value Reference Range Interpretation Comments Platelet (test code = Platelet) 208 133-450 [facility] CenterGuuutwaTZRRECAQTW6130-84-72 02:01:00 Test Item Value Reference Range Interpretation Comments MCV (test code = MCV) 77.9 80.0-98.0 [facility] CenterHlkbcawAZHXYPBFRD2675-48-80 02:01:00 Test Item Value Reference Range Interpretation Comments MCH (test code = MCH) 24.2 pg 27.0-31.0 [facility] CenterDkpthkjPCGAHSBOQZ2105-41-31 02:01:00 Test Item Value Reference Range Interpretation Comments MCHC (test code = MCHC) 31.1 32.0-36.0 [facility] HospitalBpuokutPBTQKHDMHPGB9238-84-32 02:01:00 Test Item Value Reference Range Interpretation Comments Albumin Lvl (test code = Albumin Lvl) 3.8 3.5-5.0 [facility] CenterJrikqylMDCRYPYPIX9342-50-08 02:01:00 Test Item Value Reference Range Interpretation Comments Hgb (test code = Hgb) 13.3 12.0-16.0 [facility] CenterAmyqivmVUBSILFTDJ8076-23-96 02:01:00 Test Item Value Reference Range Interpretation Comments Hct (test code = Hct) 42.6 36.0-48.0 [facility] CenterUuiaphxLVGZLOOKNS8199-14-02 02:01:00 Test Item Value Reference Range Interpretation Comments WBC (test code = WBC) 9.9 3.7-10.4 [facility] CenterUecvmjxJRXWLBOOAD5297-51-30 02:01:00 Test Item Value Reference Range Interpretation Comments RBC (test code = RBC) 5.47 4.20-5.40 [facility] HospitalSwngayeIOLHTEAAFZEG0342-10-36 02:01:00 Test Item Value Reference Range Interpretation Comments Sodium Lvl (test code = Sodium Lvl) 139 135-145 [facility] HospitalNkfniqsDZSVSJTBCFAJ9457-71-67 02:01:00 Test Item Value Reference Range Interpretation Comments Chloride Lvl (test code = Chloride Lvl) 106 95-109 [facility] HospitalFiapbagNMXNMWQLBPWD7444-51-63 02:01:00 Test Item Value Reference Range Interpretation Comments Potassium Lvl (test code = Potassium 3.7 3.5-5.1 Lvl) [facility] HospitalGxglpdsCWEDGXUDLYWL8771-13-19 02:01:00 Test Item Value Reference Range Interpretation Comments BUN (test code = BUN) 10 7-22 [facility] HospitalNeggiikOSBAKSLEVPIK4167-17-16 02:01:00 Test Item Value Reference Range Interpretation Comments Glucose Lvl (test code = Glucose Lvl) 88 70-99 [facility] HospitalKqiqgyeQRFDRWQMCQYC4218-61-65 02:01:00 Test Item Value Reference Range Interpretation Comments Creatinine Lvl (test code = Creatinine 0.76 0.50-1.40 Lvl) [facility] CenterMvqblgwERWKTDFYLY4541-27-82 02:01:00 Test Item Value Reference Range Interpretation Comments Segs-Bands # (test code = Segs-Bands #) 5.4 1.5-8.1 [facility] CenterYwtykhqGHIPJDVMOY5217-29-77 02:01:00 Test Item Value Reference Range Interpretation Comments Basophils (test code = 1.0 See_Comment [Aut omated message] The Basophils) system which ge nerated this result tra nsmitted reference range : <=1.0. The reference r kat was not used to int erpret this result as normal/abnormal . [facility] CenterAgxwzmwZWYVDJBLWC1996-45-67 02:01:00 Test Item Value Reference Range Interpretation Comments Monocytes # (test code 0.7 See_Comment [Aut omated message] The = Monocytes #) system which generated this result tra nsmitted reference range : <=0.8. The reference r kat was not used to int erpret this result as normal/abnormal . [facility] CenterTyqrgkeOBYPIIJXXA7939-83-95 02:01:00 Test Item Value Reference Range Interpretation Comments Lymphocytes (test code = Lymphocytes) 35.1 20.0-40.0 [facility] CenterVfusxzkSESEZNOBHM1001-44-70 02:01:00 Test Item Value Reference Range Interpretation Comments Lymphocytes # (test code = Lymphocytes 3.5 1.0-5.5 #) [facility] CenterUaumbgwWSKCRFUBSZ6032-74-25 02:01:00 Test Item Value Reference Range Interpretation Comments Monocytes (test code = Monocytes) 6.7 2.0-12.0 [facility] CenterDigdrbhFTKQFEAFMU1203-89-40 02:01:00 Test Item Value Reference Range Interpretation Comments Segs (test code = Segs) 54.8 45.0-75.0 [facility] CenterEkircjyLSBNEJHQCR6666-50-68 02:01:00 Test Item Value Reference Range Interpretation Comments Eosinophils (test code = 2.4 See_Comment [A utomated message] The Eosinophils) system which ge nerated this result tra nsmitted reference range : <=4.0. The reference r kat was not used to int erpret this result as normal/abnormal . [facility] CenterBputshgKFZAVLQVKB1004-64-26 02:01:00 Test Item Value Reference Range Interpretation Comments Basophils # (test code 0.1 See_Comment [Aut omated message] The = Basophils #) system which generated this result tra nsmitted reference range : <=0.2. The reference r kat was not used to int erpret this result as normal/abnormal . [facility] CenterDhuoqliLKGBFJQTUS6271-72-91 02:01:00 Test Item Value Reference Range Interpretation Comments Microcyte (test code = 1+ *ABN*(09/17/15 Microcyte) 8:01 PM) [facility] CenterNwksugjDCUQXCARXH5260-49-61 02:01:00 Test Item Value Reference Range Interpretation Comments Eosinophils # (test code 0.2 See_Comment [A utomated message] The = Eosinophils #) system whic h generated this result tra nsmitted reference range : <=0.5. The reference r kat was not used to int erpret this result as normal/abnormal . [facility] CenterXuprgvyBZHEGKVZWP7990-56-93 02:01:00 Test Item Value Reference Range Interpretation Comments MPV (test code = MPV) 10.0 7.4-10.4 [facility] CenterAuryfasZOADSTXROI8819-55-74 02:01:00 Test Item Value Reference Range Interpretation Comments RDW (test code = RDW) 16.9 11.5-14.5 [facility] CenterEwqthvoSYBGCEVZRG4601-60-69 02:01:00 Test Item Value Reference Range Interpretation Comments Platelet (test code = Platelet) 208 133-450 [facility] CenterPhojiojHNXJDXYUKA6883-02-23 02:01:00 Test Item Value Reference Range Interpretation Comments MCV (test code = MCV) 77.9 80.0-98.0 [facility] CenterYcjxewxTLBJVUHLMN0993-97-55 02:01:00 Test Item Value Reference Range Interpretation Comments MCH (test code = MCH) 24.2 pg 27.0-31.0 [facility] CenterVsexxqqSQITRHIPGE6639-21-10 02:01:00 Test Item Value Reference Range Interpretation Comments MCHC (test code = MCHC) 31.1 32.0-36.0 [facility] CenterGupmhxdHLKFIUMDSW0166-50-55 02:01:00 Test Item Value Reference Range Interpretation Comments Hgb (test code = Hgb) 13.3 12.0-16.0 [facility] CenterBfgtwenXKHKLERTXS0727-31-33 02:01:00 Test Item Value Reference Range Interpretation Comments Hct (test code = Hct) 42.6 36.0-48.0 [facility] CenterOuovpiqWLLDATUJKQ4967-55-43 02:01:00 Test Item Value Reference Range Interpretation Comments WBC (test code = WBC) 9.9 3.7-10.4 [facility] CenterAcpsbkmQAZYAUJTUJ5780-92-81 02:01:00 Test Item Value Reference Range Interpretation Comments RBC (test code = RBC) 5.47 4.20-5.40 [facility]2016-01-20 02:01:00 Test Item Value Reference Range Interpretation Comments Lipase Lvl (test code = Lipase Lvl) 196 73-393 [facility]2016-01-20 02:01:00 Test Item Value Reference Range Interpretation Comments Amylase Lvl (test code = Amylase Lvl) 33 25-115 [facility] HospitalYsvqhjdRCLYXYQVMBEJ0285-27-16 02:01:00 Test Item Value Reference Range Interpretation Comments AGAP (test code = AGAP) 10.7 10.0-20.0 [facility] HospitalDfdbokjHCIXXOMAIUMA7818-52-82 02:01:00 Test Item Value Reference Range Interpretation Comments A/G Ratio (test code = A/G Ratio) 1.2 0.7-1.6 [facility] HospitalGhowectEINRKBDGGRRG9997-06-43 02:01:00 Test Item Value Reference Range Interpretation Comments Globulin (test code = Globulin) 3.1 2.0-4.0 [facility] HospitalXsobofqFMSSNUNGWGEZ0112-08-07 02:01:00 Test Item Value Reference Range Interpretation Comments B/C Ratio (test code = B/C Ratio) 13 6-25 [facility] HospitalFwmynpaFZVZSHPXNRPA0239-91-50 02:01:00 Test Item Value Reference Range Interpretation Comments Total Protein (test code = Total 6.9 6.4-8.4 Protein) [facility] HospitalHoxndxsLRVZZNIOPVLR0152-69-87 02:01:00 Test Item Value Reference Range Interpretation Comments Calcium Lvl (test code = Calcium Lvl) 9.0 8.5-10.5 [facility] HospitalKzaysyrZSAXOVBKWDSQ4445-15-01 02:01:00 Test Item Value Reference Range Interpretation Comments CO2 (test code = CO2) 26 24-32 [facility] HospitalRuonwvxNAHYHJODLIGY1115-24-11 02:01:00 Test Item Value Reference Range Interpretation Comments eGFR (test code = eGFR) 110 [facility] HospitalOmkpkplFHIFLUONMGZQ2186-57-85 02:01:00 Test Item Value Reference Range Interpretation Comments Bili Total (test code = Bili Total) 0.3 0.2-1.3 [facility] HospitalTnyblokYALNYYDBJJEE6384-90-20 02:01:00 Test Item Value Reference Range Interpretation Comments Alk Phos (test code = Alk Phos) 84 39-136 [facility] HospitalRjzrzicQTRQVBTEGBDX5063-10-46 02:01:00 Test Item Value Reference Range Interpretation Comments AST (test code = AST) 17 See_Comment [Auto mated message] The system which ge nerated this result transmit arvind reference range : <=37. The reference range was not used to interpr et this result as mario l/abnormal. [facility] HospitalEjioeclIMLHFVIREHVA9670-47-76 02:01:00 Test Item Value Reference Range Interpretation Comments ALT (test code = ALT) 42 See_Comment [Auto mated message] The system which ge nerated this result transmit arvind reference range : <=65. The reference range was not used to interpr et this result as mario l/abnormal. [facility] HospitalZwruvfiBRFGUYJUTZDI7312-79-33 02:01:00 Test Item Value Reference Range Interpretation Comments Albumin Lvl (test code = Albumin Lvl) 3.8 3.5-5.0 [facility] HospitalJwfldddYILSWHJCRKMM9871-67-98 02:01:00 Test Item Value Reference Range Interpretation Comments Sodium Lvl (test code = Sodium Lvl) 139 135-145 [facility] HospitalIiztccbPQPMUPSEVPTE7030-49-42 02:01:00 Test Item Value Reference Range Interpretation Comments Chloride Lvl (test code = Chloride Lvl) 106 95-109 [facility] HospitalWhnhnmeUNQVAFPWACNP5355-77-48 02:01:00 Test Item Value Reference Range Interpretation Comments Potassium Lvl (test code = Potassium 3.7 3.5-5.1 Lvl) [facility] HospitalDehewpvJAFSREGEWOVK6392-61-96 02:01:00 Test Item Value Reference Range Interpretation Comments BUN (test code = BUN) 10 7-22 [facility] HospitalXukhaheXGAKLGZRFZQO5179-31-74 02:01:00 Test Item Value Reference Range Interpretation Comments Glucose Lvl (test code = Glucose Lvl) 88 70-99 [facility] HospitalSeskccmPWARZQUUWCZI8889-49-27 02:01:00 Test Item Value Reference Range Interpretation Comments Creatinine Lvl (test code = Creatinine 0.76 0.50-1.40 Lvl) [facility] CenterYslwntnWBPKDFNDEM0234-59-38 02:01:00 Test Item Value Reference Range Interpretation Comments Segs-Bands # (test code = Segs-Bands #) 5.4 1.5-8.1 [facility] CenterCtzhlgjFGMHAXAIXW1611-71-19 02:01:00 Test Item Value Reference Range Interpretation Comments Basophils (test code = 1.0 See_Comment [Aut omated message] The Basophils) system which ge nerated this result tra nsmitted reference range : <=1.0. The reference r kat was not used to int erpret this result as normal/abnormal . [facility] CenterJgrjotlXTIDOLTHQG1622-50-81 02:01:00 Test Item Value Reference Range Interpretation Comments Monocytes # (test code 0.7 See_Comment [Aut omated message] The = Monocytes #) system which generated this result tra nsmitted reference range : <=0.8. The reference r kat was not used to int erpret this result as normal/abnormal . [facility] CenterMwojbdiBMUTIMOBLR3761-66-94 02:01:00 Test Item Value Reference Range Interpretation Comments Lymphocytes (test code = Lymphocytes) 35.1 20.0-40.0 [facility] CenterXwwighqQEPJCYHTSC5966-52-17 02:01:00 Test Item Value Reference Range Interpretation Comments Lymphocytes # (test code = Lymphocytes 3.5 1.0-5.5 #) [facility] CenterJcyckraRUWRIGZKKH4016-83-27 02:01:00 Test Item Value Reference Range Interpretation Comments Monocytes (test code = Monocytes) 6.7 2.0-12.0 [facility] CenterCovstgwMGEEXFBMCK0481-52-23 02:01:00 Test Item Value Reference Range Interpretation Comments Segs (test code = Segs) 54.8 45.0-75.0 [facility] CenterTlrwlajSLRBYKNTMV8796-96-94 02:01:00 Test Item Value Reference Range Interpretation Comments Eosinophils (test code = 2.4 See_Comment [A utomated message] The Eosinophils) system which ge nerated this result tra nsmitted reference range : <=4.0. The reference r kat was not used to int erpret this result as normal/abnormal . [facility] CenterNvysfhiTASDJDXQPM6802-08-55 02:01:00 Test Item Value Reference Range Interpretation Comments Basophils # (test code 0.1 See_Comment [Aut omated message] The = Basophils #) system which generated this result tra nsmitted reference range : <=0.2. The reference r kat was not used to int erpret this result as normal/abnormal . [facility] CenterZbtokibZZTYGRUOGD9377-03-32 02:01:00 Test Item Value Reference Range Interpretation Comments Microcyte (test code = 1+ *ABN*(09/17/15 Microcyte) 8:01 PM) [facility] CenterDztqqbpKKUBSBLEEG5268-20-99 02:01:00 Test Item Value Reference Range Interpretation Comments Eosinophils # (test code 0.2 See_Comment [A utomated message] The = Eosinophils #) system whic h generated this result tra nsmitted reference range : <=0.5. The reference r kat was not used to int erpret this result as normal/abnormal . [facility] CenterSrrhwpcXGIRRJJFEZ5917-28-99 02:01:00 Test Item Value Reference Range Interpretation Comments MPV (test code = MPV) 10.0 7.4-10.4 [facility] CenterEmdbqoiWGGECZADBD1016-47-56 02:01:00 Test Item Value Reference Range Interpretation Comments RDW (test code = RDW) 16.9 11.5-14.5 [facility] CenterLtejmccCZLPTNUHVM1300-41-90 02:01:00 Test Item Value Reference Range Interpretation Comments Platelet (test code = Platelet) 208 133-450 [facility] CenterXkhoxpxZLHLXGIGJC0084-89-90 02:01:00 Test Item Value Reference Range Interpretation Comments MCV (test code = MCV) 77.9 80.0-98.0 [facility] CenterUcqknftJKWPYKMMTG7748-58-99 02:01:00 Test Item Value Reference Range Interpretation Comments MCH (test code = MCH) 24.2 pg 27.0-31.0 [facility] CenterFwwxjefHGBXFDQQNU5705-57-81 02:01:00 Test Item Value Reference Range Interpretation Comments MCHC (test code = MCHC) 31.1 32.0-36.0 [facility] CenterBuihrafOCGFIDILLI7053-91-78 02:01:00 Test Item Value Reference Range Interpretation Comments Hgb (test code = Hgb) 13.3 12.0-16.0 [facility] CenterZzxycxyYYHNZURVRK3962-78-16 02:01:00 Test Item Value Reference Range Interpretation Comments Hct (test code = Hct) 42.6 36.0-48.0 [facility] CenterVoitgafFPKAAPYOMT0257-42-14 02:01:00 Test Item Value Reference Range Interpretation Comments WBC (test code = WBC) 9.9 3.7-10.4 [facility] CenterYghlqcaVTLQGOLFKK8718-68-51 02:01:00 Test Item Value Reference Range Interpretation Comments RBC (test code = RBC) 5.47 4.20-5.40 [facility]2015-12-28 16:57:00 Test Item Value Reference Range Interpretation Comments eGFR (test code = eGFR) 86 [facility]2015-12-28 16:57:00 Test Item Value Reference Range Interpretation Comments Potassium Lvl (test code = Potassium 3.6 3.5-5.1 Lvl) [facility]2015-12-28 16:57:00 Test Item Value Reference Range Interpretation Comments CO2 (test code = CO2) 27 24-32 [facility]2015-12-28 16:57:00 Test Item Value Reference Range Interpretation Comments Chloride Lvl (test code = Chloride Lvl) 103 95-109 [facility]2015-12-28 16:57:00 Test Item Value Reference Range Interpretation Comments Calcium Lvl (test code = Calcium Lvl) 9.4 8.5-10.5 [facility]2015-12-28 16:57:00 Test Item Value Reference Range Interpretation Comments AST (test code = AST) 16 See_Comment [Auto mated message] The system which ge nerated this result transmit arvind reference range : <=37. The reference range was not used to interpr et this result as mario l/abnormal. [facility]2015-12-28 16:57:00 Test Item Value Reference Range Interpretation Comments ALT (test code = ALT) 43 See_Comment [Auto mated message] The system which ge nerated this result transmit arvind reference range : <=65. The reference range was not used to interpr et this result as mario l/abnormal. [facility]2015-12-28 16:57:00 Test Item Value Reference Range Interpretation Comments Alk Phos (test code = Alk Phos) 97 39-136 [facility]2015-12-28 16:57:00 Test Item Value Reference Range Interpretation Comments Albumin Lvl (test code = Albumin Lvl) 3.6 3.5-5.0 [facility]2015-12-28 16:57:00 Test Item Value Reference Range Interpretation Comments Total Protein (test code = Total 7.3 6.4-8.4 Protein) [facility]2015-12-28 16:57:00 Test Item Value Reference Range Interpretation Comments Bili Total (test code = Bili Total) 0.4 0.2-1.3 [facility]2015-12-28 16:57:00 Test Item Value Reference Range Interpretation Comments Glucose Lvl (test code = Glucose Lvl) 95 70-99 [facility]2015-12-28 16:57:00 Test Item Value Reference Range Interpretation Comments Creatinine Lvl (test code = Creatinine 0.93 0.50-1.40 Lvl) [facility]2015-12-28 16:57:00 Test Item Value Reference Range Interpretation Comments BUN (test code = BUN) 9 7-22 [facility]2015-12-28 16:57:00 Test Item Value Reference Range Interpretation Comments Sodium Lvl (test code = Sodium Lvl) 139 135-145 [facility]2015-12-28 16:57:00 Test Item Value Reference Range Interpretation Comments A/G Ratio (test code = A/G Ratio) 1.0 0.7-1.6 [facility]2015-12-28 16:57:00 Test Item Value Reference Range Interpretation Comments Globulin (test code = Globulin) 3.7 2.0-4.0 [facility]2015-12-28 16:57:00 Test Item Value Reference Range Interpretation Comments B/C Ratio (test code = B/C Ratio) 10 6-25 [facility]2015-12-28 16:57:00 Test Item Value Reference Range Interpretation Comments AGAP (test code = AGAP) 12.6 10.0-20.0 [facility] 16:57:00 Test Item Value Reference Range Interpretation Comments S Preg (test code = S Negative *NA*(08/26/15 Preg) 10:57 AM) [facility] CenterTcxjxyiRPICUVWRME2395-40-29 16:57:00 Test Item Value Reference Range Interpretation Comments Eosinophils # (test code 0.4 See_Comment [A utomated message] The = Eosinophils #) system whic h generated this result tra nsmitted reference range : <=0.5. The reference r kat was not used to int erpret this result as normal/abnormal . [facility] CenterFwximmrXBVFFJEWUW2442-95-45 16:57:00 Test Item Value Reference Range Interpretation Comments Microcyte (test code = 1+ *ABN*(08/26/15 Microcyte) 10:57 AM) [facility] CenterFlrzjhgEPQYZAHFYO2617-24-35 16:57:00 Test Item Value Reference Range Interpretation Comments Basophils # (test code 0.1 See_Comment [Aut omated message] The = Basophils #) system which generated this result tra nsmitted reference range : <=0.2. The reference r kat was not used to int erpret this result as normal/abnormal . [facility] CenterYapzbjmMPLAUNBAFA9430-62-83 16:57:00 Test Item Value Reference Range Interpretation Comments Monocytes (test code = Monocytes) 8.6 2.0-12.0 [facility] CenterIyafoppPZAINLKHZT2638-93-73 16:57:00 Test Item Value Reference Range Interpretation Comments Lymphocytes (test code = Lymphocytes) 40.6 20.0-40.0 [facility] CenterMyhuhjaWVNIZSNTJZ3258-13-69 16:57:00 Test Item Value Reference Range Interpretation Comments Eosinophils (test code = 5.0 See_Comment [A utomated message] The Eosinophils) system which ge nerated this result tra nsmitted reference range : <=4.0. The reference r kat was not used to int erpret this result as normal/abnormal . [facility] CenterMqgocxhORZSIGDNRB9122-89-77 16:57:00 Test Item Value Reference Range Interpretation Comments Segs (test code = Segs) 44.8 45.0-75.0 [facility] CenterKrhibtlGVSMBWVGTL4061-23-38 16:57:00 Test Item Value Reference Range Interpretation Comments Basophils (test code = 1.0 See_Comment [Aut omated message] The Basophils) system which ge nerated this result tra nsmitted reference range : <=1.0. The reference r kat was not used to int erpret this result as normal/abnormal . [facility] CenterJtklkcqCBYRGWXCXR7424-78-32 16:57:00 Test Item Value Reference Range Interpretation Comments Segs-Bands # (test code = Segs-Bands #) 3.3 1.5-8.1 [facility] CenterWnbgckgRLWONOSFAQ7857-34-54 16:57:00 Test Item Value Reference Range Interpretation Comments Monocytes # (test code 0.6 See_Comment [Aut omated message] The = Monocytes #) system which generated this result tra nsmitted reference range : <=0.8. The reference r kat was not used to int erpret this result as normal/abnormal . [facility] CenterQfslhfnPOOTBVQFLR2442-40-80 16:57:00 Test Item Value Reference Range Interpretation Comments Lymphocytes # (test code = Lymphocytes 3.0 1.0-5.5 #) [facility] CenterPxkhzicIWKVANAFDW5556-62-57 16:57:00 Test Item Value Reference Range Interpretation Comments PT (test code = PT) 14.0 s 12.0-14.7 [facility] CenterRnmpbvcPWUTDFJFQN3117-11-69 16:57:00 Test Item Value Reference Range Interpretation Comments INR (test code = INR) 1.05 0.85-1.17 [facility] CenterGdqchckUKINMGBIHN9392-30-78 16:57:00 Test Item Value Reference Range Interpretation Comments PTT (test code = PTT) 30.3 s 22.9-35.8 [facility] CenterXixbfkaYUJFRHTZTA5515-03-24 16:57:00 Test Item Value Reference Range Interpretation Comments MPV (test code = MPV) 8.9 7.4-10.4 [facility] CenterIkicllbWQBGZQHPFS9373-37-31 16:57:00 Test Item Value Reference Range Interpretation Comments RDW (test code = RDW) 15.8 11.5-14.5 [facility] CenterHanusgnBWZABCVXVT8015-24-65 16:57:00 Test Item Value Reference Range Interpretation Comments Platelet (test code = Platelet) 271 133-450 [facility] CenterWsyyshpIJOVYFLDXK3135-76-75 16:57:00 Test Item Value Reference Range Interpretation Comments WBC (test code = WBC) 7.3 3.7-10.4 [facility] CenterWkrenzdEJBYLEFCDU7800-62-59 16:57:00 Test Item Value Reference Range Interpretation Comments RBC (test code = RBC) 5.14 4.20-5.40 [facility] CenterZwgtuvqNETROKVDMQ5427-36-48 16:57:00 Test Item Value Reference Range Interpretation Comments MCV (test code = MCV) 77.9 80.0-98.0 [facility] CenterJdtvwwwNSOYDUAJJB5645-13-95 16:57:00 Test Item Value Reference Range Interpretation Comments MCH (test code = MCH) 23.9 pg 27.0-31.0 [facility] CenterYpdarsnFPZGBPCRXI2370-38-03 16:57:00 Test Item Value Reference Range Interpretation Comments MCHC (test code = MCHC) 30.7 32.0-36.0 [facility] CenterQhdqhtyJBHJVQBYSU5472-62-51 16:57:00 Test Item Value Reference Range Interpretation Comments Hct (test code = Hct) 40.1 36.0-48.0 [facility] CenterNulskkqGFIUQXNCUV6987-45-75 16:57:00 Test Item Value Reference Range Interpretation Comments Hgb (test code = Hgb) 12.3 12.0-16.0 [facility]2015-12-28 16:57:00 Test Item Value Reference Range Interpretation Comments eGFR (test code = eGFR) 86 [facility]2015-12-28 16:57:00 Test Item Value Reference Range Interpretation Comments Potassium Lvl (test code = Potassium 3.6 3.5-5.1 Lvl) [facility]2015-12-28 16:57:00 Test Item Value Reference Range Interpretation Comments CO2 (test code = CO2) 27 24-32 [facility]2015-12-28 16:57:00 Test Item Value Reference Range Interpretation Comments Chloride Lvl (test code = Chloride Lvl) 103 95-109 [facility]2015-12-28 16:57:00 Test Item Value Reference Range Interpretation Comments Calcium Lvl (test code = Calcium Lvl) 9.4 8.5-10.5 [facility]2015-12-28 16:57:00 Test Item Value Reference Range Interpretation Comments AST (test code = AST) 16 See_Comment [Auto mated message] The system which ge nerated this result transmit arvind reference range : <=37. The reference range was not used to interpr et this result as mario l/abnormal. [facility]2015-12-28 16:57:00 Test Item Value Reference Range Interpretation Comments ALT (test code = ALT) 43 See_Comment [Auto mated message] The system which ge nerated this result transmit arvind reference range : <=65. The reference range was not used to interpr et this result as mario l/abnormal. [facility]2015-12-28 16:57:00 Test Item Value Reference Range Interpretation Comments Alk Phos (test code = Alk Phos) 97 39-136 [place] 610125-12-28 16:57:00 Test Item Value Reference Range Interpretation Comments Albumin Lvl (test code = Albumin Lvl) 3.6 3.5-5.0 [place] 610125-12-28 16:57:00 Test Item Value Reference Range Interpretation Comments Total Protein (test code = Total 7.3 6.4-8.4 Protein) [facility]2015-12-28 16:57:00 Test Item Value Reference Range Interpretation Comments Bili Total (test code = Bili Total) 0.4 0.2-1.3 [place] 610125-12-28 16:57:00 Test Item Value Reference Range Interpretation Comments Glucose Lvl (test code = Glucose Lvl) 95 70-99 [facility]2015-12-28 16:57:00 Test Item Value Reference Range Interpretation Comments Creatinine Lvl (test code = Creatinine 0.93 0.50-1.40 Lvl) [place] 610125-12-28 16:57:00 Test Item Value Reference Range Interpretation Comments BUN (test code = BUN) 9 7-22 [place] 610125-12-28 16:57:00 Test Item Value Reference Range Interpretation Comments Sodium Lvl (test code = Sodium Lvl) 139 135-145 [place] 610125-12-28 16:57:00 Test Item Value Reference Range Interpretation Comments A/G Ratio (test code = A/G Ratio) 1.0 0.7-1.6 [place] 610125-12-28 16:57:00 Test Item Value Reference Range Interpretation Comments Globulin (test code = Globulin) 3.7 2.0-4.0 [facility]2015-12-28 16:57:00 Test Item Value Reference Range Interpretation Comments B/C Ratio (test code = B/C Ratio) 10 6-25 [facility]2015-12-28 16:57:00 Test Item Value Reference Range Interpretation Comments AGAP (test code = AGAP) 12.6 10.0-20.0 [facility]ZydklifFXOGHUHPGTPZK7222-24-75 16:57:00 Test Item Value Reference Range Interpretation Comments S Preg (test code = S Negative *NA*(08/26/15 Preg) 10:57 AM) [facility] CenterWauypanGZDVPYOLEF3702-05-96 16:57:00 Test Item Value Reference Range Interpretation Comments Eosinophils # (test code 0.4 See_Comment [A utomated message] The = Eosinophils #) system whic h generated this result tra nsmitted reference range : <=0.5. The reference r kat was not used to int erpret this result as normal/abnormal . [facility] CenterPzigvusWYXRFBTZZI7652-42-95 16:57:00 Test Item Value Reference Range Interpretation Comments Microcyte (test code = 1+ *ABN*(08/26/15 Microcyte) 10:57 AM) [facility] CenterSshxmpdYPZXGSCJND8361-07-31 16:57:00 Test Item Value Reference Range Interpretation Comments Basophils # (test code 0.1 See_Comment [Aut omated message] The = Basophils #) system which generated this result tra nsmitted reference range : <=0.2. The reference r kat was not used to int erpret this result as normal/abnormal . [facility] CenterWprsqscUZTSJDSUEW7642-87-56 16:57:00 Test Item Value Reference Range Interpretation Comments Monocytes (test code = Monocytes) 8.6 2.0-12.0 [facility] CenterIptytbaVBKOVITRRX4558-71-84 16:57:00 Test Item Value Reference Range Interpretation Comments Lymphocytes (test code = Lymphocytes) 40.6 20.0-40.0 [facility] CenterHzolqxhRIQSRMMHQA6052-49-39 16:57:00 Test Item Value Reference Range Interpretation Comments Eosinophils (test code = 5.0 See_Comment [A utomated message] The Eosinophils) system which ge nerated this result tra nsmitted reference range : <=4.0. The reference r kat was not used to int erpret this result as normal/abnormal . [facility] CenterNjggygqGYRNKUHYYD7589-26-42 16:57:00 Test Item Value Reference Range Interpretation Comments Segs (test code = Segs) 44.8 45.0-75.0 [facility] CenterHncdnxsYMPIMDDWTW2177-88-09 16:57:00 Test Item Value Reference Range Interpretation Comments Basophils (test code = 1.0 See_Comment [Aut omated message] The Basophils) system which ge nerated this result tra nsmitted reference range : <=1.0. The reference r kat was not used to int erpret this result as normal/abnormal . [facility] CenterWehivsmSLRQOWZBIS7978-43-09 16:57:00 Test Item Value Reference Range Interpretation Comments Segs-Bands # (test code = Segs-Bands #) 3.3 1.5-8.1 [facility] CenterKozmnyzLCEQGTLHXH7694-43-80 16:57:00 Test Item Value Reference Range Interpretation Comments Monocytes # (test code 0.6 See_Comment [Aut omated message] The = Monocytes #) system which generated this result tra nsmitted reference range : <=0.8. The reference r kat was not used to int erpret this result as normal/abnormal . [facility] CenterKyzesuzOIFGRJJFYU4412-20-03 16:57:00 Test Item Value Reference Range Interpretation Comments Lymphocytes # (test code = Lymphocytes 3.0 1.0-5.5 #) [facility] CenterTjrxbbbSLKHDKWMSG4437-02-09 16:57:00 Test Item Value Reference Range Interpretation Comments PT (test code = PT) 14.0 s 12.0-14.7 [facility] CenterLvsdnrpSMGJUHITTD0568-46-04 16:57:00 Test Item Value Reference Range Interpretation Comments INR (test code = INR) 1.05 0.85-1.17 [facility] CenterZvddqpdVWIASTGYTP7323-35-69 16:57:00 Test Item Value Reference Range Interpretation Comments PTT (test code = PTT) 30.3 s 22.9-35.8 [facility] CenterFnnzaveUXFYYCCNCC3593-06-52 16:57:00 Test Item Value Reference Range Interpretation Comments MPV (test code = MPV) 8.9 7.4-10.4 [facility] CenterPusjjaiPKSFELWRPF5245-68-92 16:57:00 Test Item Value Reference Range Interpretation Comments RDW (test code = RDW) 15.8 11.5-14.5 [facility] CenterYhthnzlXPMDJQSIAL9194-59-20 16:57:00 Test Item Value Reference Range Interpretation Comments Platelet (test code = Platelet) 271 133-450 [facility] CenterHrmncfhCFHZNPPFSY8652-58-43 16:57:00 Test Item Value Reference Range Interpretation Comments WBC (test code = WBC) 7.3 3.7-10.4 [facility] CenterMlpnkttLMWJXFLVDN5270-11-18 16:57:00 Test Item Value Reference Range Interpretation Comments RBC (test code = RBC) 5.14 4.20-5.40 [facility] CenterHlnpoysUZUQKWRSMP5322-46-80 16:57:00 Test Item Value Reference Range Interpretation Comments MCV (test code = MCV) 77.9 80.0-98.0 [facility] CenterAjhkzhjNNSRJLYBTS2770-23-37 16:57:00 Test Item Value Reference Range Interpretation Comments MCH (test code = MCH) 23.9 pg 27.0-31.0 [facility] CenterQfzmygbFUQHYFJSJW3581-07-63 16:57:00 Test Item Value Reference Range Interpretation Comments MCHC (test code = MCHC) 30.7 32.0-36.0 [facility] CenterPkurrmuRAJFTQBNFV0055-75-05 16:57:00 Test Item Value Reference Range Interpretation Comments Hct (test code = Hct) 40.1 36.0-48.0 [facility] CenterUxanrvcYVOQOETJQV6119-04-75 16:57:00 Test Item Value Reference Range Interpretation Comments Hgb (test code = Hgb) 12.3 12.0-16.0 [facility]2015-12-28 16:57:00 Test Item Value Reference Range Interpretation Comments eGFR (test code = eGFR) 86 [facility]2015-12-28 16:57:00 Test Item Value Reference Range Interpretation Comments Potassium Lvl (test code = Potassium 3.6 3.5-5.1 Lvl) [facility]2015-12-28 16:57:00 Test Item Value Reference Range Interpretation Comments CO2 (test code = CO2) 27 24-32 [facility]2015-12-28 16:57:00 Test Item Value Reference Range Interpretation Comments Chloride Lvl (test code = Chloride Lvl) 103 95-109 [place] 610125-12-28 16:57:00 Test Item Value Reference Range Interpretation Comments Calcium Lvl (test code = Calcium Lvl) 9.4 8.5-10.5 [facility]2015-12-28 16:57:00 Test Item Value Reference Range Interpretation Comments AST (test code = AST) 16 See_Comment [Auto mated message] The system which ge nerated this result transmit arvind reference range : <=37. The reference range was not used to interpr et this result as mario l/abnormal. [facility]2015-12-28 16:57:00 Test Item Value Reference Range Interpretation Comments ALT (test code = ALT) 43 See_Comment [Auto mated message] The system which ge nerated this result transmit arvind reference range : <=65. The reference range was not used to interpr et this result as mario l/abnormal. [place] 610125-12-28 16:57:00 Test Item Value Reference Range Interpretation Comments Alk Phos (test code = Alk Phos) 97 39-136 [facility]2015-12-28 16:57:00 Test Item Value Reference Range Interpretation Comments Albumin Lvl (test code = Albumin Lvl) 3.6 3.5-5.0 [facility]2015-12-28 16:57:00 Test Item Value Reference Range Interpretation Comments Total Protein (test code = Total 7.3 6.4-8.4 Protein) [facility]2015-12-28 16:57:00 Test Item Value Reference Range Interpretation Comments Bili Total (test code = Bili Total) 0.4 0.2-1.3 [place] 610125-12-28 16:57:00 Test Item Value Reference Range Interpretation Comments Glucose Lvl (test code = Glucose Lvl) 95 70-99 [place] 610125-12-28 16:57:00 Test Item Value Reference Range Interpretation Comments Creatinine Lvl (test code = Creatinine 0.93 0.50-1.40 Lvl) [place] 610125-12-28 16:57:00 Test Item Value Reference Range Interpretation Comments BUN (test code = BUN) 9 7-22 [place] 610125-12-28 16:57:00 Test Item Value Reference Range Interpretation Comments Sodium Lvl (test code = Sodium Lvl) 139 135-145 [facility]2015-12-28 16:57:00 Test Item Value Reference Range Interpretation Comments A/G Ratio (test code = A/G Ratio) 1.0 0.7-1.6 [facility]2015-12-28 16:57:00 Test Item Value Reference Range Interpretation Comments Globulin (test code = Globulin) 3.7 2.0-4.0 [facility]2015-12-28 16:57:00 Test Item Value Reference Range Interpretation Comments B/C Ratio (test code = B/C Ratio) 10 6-25 [facility]2015-12-28 16:57:00 Test Item Value Reference Range Interpretation Comments AGAP (test code = AGAP) 12.6 10.0-20.0 [place] 68251015-12-28 16:57:00 Test Item Value Reference Range Interpretation Comments S Preg (test code = S Negative *NA*(08/26/15 Preg) 10:57 AM) [facility] CenterLfamervTOLHWKONPP8056-09-82 16:57:00 Test Item Value Reference Range Interpretation Comments Eosinophils # (test code 0.4 See_Comment [A utomated message] The = Eosinophils #) system whic h generated this result tra nsmitted reference range : <=0.5. The reference r kat was not used to int erpret this result as normal/abnormal . [facility] CenterSrhfenoBEOJTCAIBP3973-22-89 16:57:00 Test Item Value Reference Range Interpretation Comments Microcyte (test code = 1+ *ABN*(08/26/15 Microcyte) 10:57 AM) [facility] CenterJruowjoGEMKLDUVQV1974-63-36 16:57:00 Test Item Value Reference Range Interpretation Comments Basophils # (test code 0.1 See_Comment [Aut omated message] The = Basophils #) system which generated this result tra nsmitted reference range : <=0.2. The reference r kat was not used to int erpret this result as normal/abnormal . [facility] CenterThjwippQGZDDWSLDA2724-80-71 16:57:00 Test Item Value Reference Range Interpretation Comments Monocytes (test code = Monocytes) 8.6 2.0-12.0 [facility] CenterGipiioxGBJOMDLKOB4184-46-25 16:57:00 Test Item Value Reference Range Interpretation Comments Lymphocytes (test code = Lymphocytes) 40.6 20.0-40.0 [facility] CenterMfgvegsYVYPNGZGXB9170-33-52 16:57:00 Test Item Value Reference Range Interpretation Comments Eosinophils (test code = 5.0 See_Comment [A utomated message] The Eosinophils) system which ge nerated this result tra nsmitted reference range : <=4.0. The reference r kat was not used to int erpret this result as normal/abnormal . [facility] CenterSbwxmdnNKNOPXXNBL1744-38-27 16:57:00 Test Item Value Reference Range Interpretation Comments Segs (test code = Segs) 44.8 45.0-75.0 [facility] CenterMrfiugtTSOAHZLZFB0392-56-50 16:57:00 Test Item Value Reference Range Interpretation Comments Basophils (test code = 1.0 See_Comment [Aut omated message] The Basophils) system which ge nerated this result tra nsmitted reference range : <=1.0. The reference r kat was not used to int erpret this result as normal/abnormal . [facility] CenterUhmhzsuFACOQFEDPL2529-08-77 16:57:00 Test Item Value Reference Range Interpretation Comments Segs-Bands # (test code = Segs-Bands #) 3.3 1.5-8.1 [facility] CenterGejzpnrOGNUTOLPVI3477-95-24 16:57:00 Test Item Value Reference Range Interpretation Comments Monocytes # (test code 0.6 See_Comment [Aut omated message] The = Monocytes #) system which generated this result tra nsmitted reference range : <=0.8. The reference r kat was not used to int erpret this result as normal/abnormal . [facility] CenterTfmwdmjYPPTXPTQSH1051-39-01 16:57:00 Test Item Value Reference Range Interpretation Comments Lymphocytes # (test code = Lymphocytes 3.0 1.0-5.5 #) [facility] CenterQkzojpqHCCJNBJMTN5630-16-61 16:57:00 Test Item Value Reference Range Interpretation Comments PT (test code = PT) 14.0 s 12.0-14.7 [facility] CenterDyrcgtoIKNESWOQKL5055-96-73 16:57:00 Test Item Value Reference Range Interpretation Comments INR (test code = INR) 1.05 0.85-1.17 [facility] CenterWssblmuHKZAWIUARP5607-74-63 16:57:00 Test Item Value Reference Range Interpretation Comments PTT (test code = PTT) 30.3 s 22.9-35.8 [facility] CenterCdagcbrOQCZTZJCAM8764-81-04 16:57:00 Test Item Value Reference Range Interpretation Comments MPV (test code = MPV) 8.9 7.4-10.4 [facility] CenterGdugfffYUYUYHCCSK3305-97-21 16:57:00 Test Item Value Reference Range Interpretation Comments RDW (test code = RDW) 15.8 11.5-14.5 [facility] CenterCqrofrqDCQZLIHYGY9628-27-50 16:57:00 Test Item Value Reference Range Interpretation Comments Platelet (test code = Platelet) 271 133-450 [facility] CenterCtdzjkdSFYZQILOPX9081-10-66 16:57:00 Test Item Value Reference Range Interpretation Comments WBC (test code = WBC) 7.3 3.7-10.4 [facility] CenterVvjnvjfYDPNWBMBTM6561-58-55 16:57:00 Test Item Value Reference Range Interpretation Comments RBC (test code = RBC) 5.14 4.20-5.40 [facility] CenterQiflhviEZHODHYUWS1669-28-83 16:57:00 Test Item Value Reference Range Interpretation Comments MCV (test code = MCV) 77.9 80.0-98.0 [facility] [facility] CenterDefakyiLTMINXSPKJ0427-60-68 16:57:00 Test Item Value Reference Range Interpretation Comments MCH (test code = MCH) 23.9 pg 27.0-31.0 [facility] CenterRzsjfwnERVRNAFQSE6417-39-48 16:57:00 Test Item Value Reference Range Interpretation Comments MCHC (test code = MCHC) 30.7 32.0-36.0 [facility] CenterSrxiwtgDRPOJWOSYM8256-25-71 16:57:00 Test Item Value Reference Range Interpretation Comments Hct (test code = Hct) 40.1 36.0-48.0 [facility] CenterLzfpdjmRUDOMRKBZE4973-74-03 16:57:00 Test Item Value Reference Range Interpretation Comments Hgb (test code = Hgb) 12.3 12.0-16.0 [facility]2015-12-28 16:57:00 Test Item Value Reference Range Interpretation Comments eGFR (test code = eGFR) 86 [facility] WBHAZ4986-91-03 16:57:00 Test Item Value Reference Range Interpretation Comments Potassium Lvl (test code = Potassium 3.6 3.5-5.1 Lvl) [facility]2015-12-28 16:57:00 Test Item Value Reference Range Interpretation Comments CO2 (test code = CO2) 27 24-32 [facility]2015-12-28 16:57:00 Test Item Value Reference Range Interpretation Comments Chloride Lvl (test code = Chloride Lvl) 103 95-109 [facility]2015-12-28 16:57:00 Test Item Value Reference Range Interpretation Comments Calcium Lvl (test code = Calcium Lvl) 9.4 8.5-10.5 [facility]2015-12-28 16:57:00 Test Item Value Reference Range Interpretation Comments AST (test code = AST) 16 See_Comment [Auto mated message] The system which ge nerated this result transmit arvind reference range : <=37. The reference range was not used to interpr et this result as mario l/abnormal. [facility]2015-12-28 16:57:00 Test Item Value Reference Range Interpretation Comments ALT (test code = ALT) 43 See_Comment [Auto mated message] The system which ge nerated this result transmit arvind reference range : <=65. The reference range was not used to interpr et this result as mario l/abnormal. [facility]2015-12-28 16:57:00 Test Item Value Reference Range Interpretation Comments Alk Phos (test code = Alk Phos) 97 39-136 [facility]2015-12-28 16:57:00 Test Item Value Reference Range Interpretation Comments Albumin Lvl (test code = Albumin Lvl) 3.6 3.5-5.0 [facility]2015-12-28 16:57:00 Test Item Value Reference Range Interpretation Comments Total Protein (test code = Total 7.3 6.4-8.4 Protein) [facility]2015-12-28 16:57:00 Test Item Value Reference Range Interpretation Comments Bili Total (test code = Bili Total) 0.4 0.2-1.3 [facility]2015-12-28 16:57:00 Test Item Value Reference Range Interpretation Comments Glucose Lvl (test code = Glucose Lvl) 95 70-99 [facility]2015-12-28 16:57:00 Test Item Value Reference Range Interpretation Comments Creatinine Lvl (test code = Creatinine 0.93 0.50-1.40 Lvl) [facility]2015-12-28 16:57:00 Test Item Value Reference Range Interpretation Comments BUN (test code = BUN) 9 7- [facility]2015-12-28 16:57:00 Test Item Value Reference Range Interpretation Comments Sodium Lvl (test code = Sodium Lvl) 139 135-145 [facility]2015-12-28 16:57:00 Test Item Value Reference Range Interpretation Comments A/G Ratio (test code = A/G Ratio) 1.0 0.7-1.6 [facility]2015-12-28 16:57:00 Test Item Value Reference Range Interpretation Comments Globulin (test code = Globulin) 3.7 2.0-4.0 [facility]2015-12-28 16:57:00 Test Item Value Reference Range Interpretation Comments B/C Ratio (test code = B/C Ratio) 10 - [facility]2015-12-28 16:57:00 Test Item Value Reference Range Interpretation Comments AGAP (test code = AGAP) 12.6 10.0-20.0 [facility]MWMTXONW9936[facility]-98 16:57:00 Test Item Value Reference Range Interpretation Comments S Preg (test code = S Negative *NA*(08/26/15 Preg) 10:57 AM) [facility] CenterAfvpjpyZOMCOKIXSF7597-62-32 16:57:00 Test Item Value Reference Range Interpretation Comments Eosinophils # (test code 0.4 See_Comment [A utomated message] The = Eosinophils #) system whic h generated this result tra nsmitted reference range : <=0.5. The reference r kat was not used to int erpret this result as normal/abnormal . [facility] CenterGndwbsxETUGGSUYPM9081-89-09 16:57:00 Test Item Value Reference Range Interpretation Comments Microcyte (test code = 1+ *ABN*(08/26/15 Microcyte) 10:57 AM) [facility] CenterYucucvqCUHPANUSSP8920-74-46 16:57:00 Test Item Value Reference Range Interpretation Comments Basophils # (test code 0.1 See_Comment [Aut omated message] The = Basophils #) system which generated this result tra nsmitted reference range : <=0.2. The reference r kat was not used to int erpret this result as normal/abnormal . [facility] CenterGkzjdhwASPSVVYYHX3737-03-62 16:57:00 Test Item Value Reference Range Interpretation Comments Monocytes (test code = Monocytes) 8.6 2.0-12.0 [facility] CenterKexlrlcBIDTPPJAOL8420-66-40 16:57:00 Test Item Value Reference Range Interpretation Comments Lymphocytes (test code = Lymphocytes) 40.6 20.0-40.0 [facility] CenterCrfzfurEXCLAHJNXX3309-64-75 16:57:00 Test Item Value Reference Range Interpretation Comments Eosinophils (test code = 5.0 See_Comment [A utomated message] The Eosinophils) system which ge nerated this result tra nsmitted reference range : <=4.0. The reference r kat was not used to int erpret this result as normal/abnormal . [facility] CenterVhbtrebWUDUFMIQWK1834-35-90 16:57:00 Test Item Value Reference Range Interpretation Comments Segs (test code = Segs) 44.8 45.0-75.0 [facility] CenterFnwbrhnMOOTJOBDJC6142-30-93 16:57:00 Test Item Value Reference Range Interpretation Comments Basophils (test code = 1.0 See_Comment [Aut omated message] The Basophils) system which ge nerated this result tra nsmitted reference range : <=1.0. The reference r kat was not used to int erpret this result as normal/abnormal . [facility] CenterZtcidyzHTUJPICCNA0251-58-56 16:57:00 Test Item Value Reference Range Interpretation Comments Segs-Bands # (test code = Segs-Bands #) 3.3 1.5-8.1 [facility] CenterFznibdgKRQAQJKRGS0427-72-32 16:57:00 Test Item Value Reference Range Interpretation Comments Monocytes # (test code 0.6 See_Comment [Aut omated message] The = Monocytes #) system which generated this result tra nsmitted reference range : <=0.8. The reference r kat was not used to int erpret this result as normal/abnormal . [facility] CenterHmzksxaUSLMNCWFDM3693-58-11 16:57:00 Test Item Value Reference Range Interpretation Comments Lymphocytes # (test code = Lymphocytes 3.0 1.0-5.5 #) [facility] CenterTplabutXGUPQNJSCG7630-46-91 16:57:00 Test Item Value Reference Range Interpretation Comments PT (test code = PT) 14.0 s 12.0-14.7 [facility] CenterEwqtdimSIDLRHLRFZ9795-91-98 16:57:00 Test Item Value Reference Range Interpretation Comments INR (test code = INR) 1.05 0.85-1.17 [facility] CenterNtqaqiuNWRXQEFFDN3137-77-95 16:57:00 Test Item Value Reference Range Interpretation Comments PTT (test code = PTT) 30.3 s 22.9-35.8 [facility] CenterMtigexcKIYYMAWAVQ1735-72-73 16:57:00 Test Item Value Reference Range Interpretation Comments MPV (test code = MPV) 8.9 7.4-10.4 [facility] CenterIreuihpSBCNSDIQVN8532-98-87 16:57:00 Test Item Value Reference Range Interpretation Comments RDW (test code = RDW) 15.8 11.5-14.5 [facility] CenterNpzfikbSLKULXJFBA3381-11-52 16:57:00 Test Item Value Reference Range Interpretation Comments Platelet (test code = Platelet) 271 133-450 [facility] CenterRzctwuoMJIWDZHLWE6074-73-96 16:57:00 Test Item Value Reference Range Interpretation Comments WBC (test code = WBC) 7.3 3.7-10.4 [facility] CenterVnkmjdkAHQNQQEYQN1145-20-22 16:57:00 Test Item Value Reference Range Interpretation Comments RBC (test code = RBC) 5.14 4.20-5.40 [facility] CenterNgmbnxeEENGMYMTCG5414-44-62 16:57:00 Test Item Value Reference Range Interpretation Comments MCV (test code = MCV) 77.9 80.0-98.0 [facility] CenterNyymhcfUDRDVHJZKI0877-35-56 16:57:00 Test Item Value Reference Range Interpretation Comments MCH (test code = MCH) 23.9 pg 27.0-31.0 [facility] CenterOwefmjhGNKEDIAJJO0077-77-24 16:57:00 Test Item Value Reference Range Interpretation Comments MCHC (test code = MCHC) 30.7 32.0-36.0 [facility] CenterKuzcggfJMKLJYCKVM3903-55-67 16:57:00 Test Item Value Reference Range Interpretation Comments Hct (test code = Hct) 40.1 36.0-48.0 [facility] CenterWgmtsssTSMHYKBIOS4352-22-62 16:57:00 Test Item Value Reference Range Interpretation Comments Hgb (test code = Hgb) 12.3 12.0-16.0 [facility]2015-12-28 16:57:00 Test Item Value Reference Range Interpretation Comments eGFR (test code = eGFR) 86 [facility]2015-12-28 16:57:00 Test Item Value Reference Range Interpretation Comments Potassium Lvl (test code = Potassium 3.6 3.5-5.1 Lvl) [facility]2015-12-28 16:57:00 Test Item Value Reference Range Interpretation Comments CO2 (test code = CO2) 27 24-32 [facility]2015-12-28 16:57:00 Test Item Value Reference Range Interpretation Comments Chloride Lvl (test code = Chloride Lvl) 103 95-109 [place] 610125-12-28 16:57:00 Test Item Value Reference Range Interpretation Comments Calcium Lvl (test code = Calcium Lvl) 9.4 8.5-10.5 [facility]2015-12-28 16:57:00 Test Item Value Reference Range Interpretation Comments AST (test code = AST) 16 See_Comment [Auto mated message] The system which ge nerated this result transmit arvind reference range : <=37. The reference range was not used to interpr et this result as mario l/abnormal. [facility]2015-12-28 16:57:00 Test Item Value Reference Range Interpretation Comments ALT (test code = ALT) 43 See_Comment [Auto mated message] The system which ge nerated this result transmit arvind reference range : <=65. The reference range was not used to interpr et this result as mario l/abnormal. [facility]2015-12-28 16:57:00 Test Item Value Reference Range Interpretation Comments Alk Phos (test code = Alk Phos) 97 39-136 [facility]2015-12-28 16:57:00 Test Item Value Reference Range Interpretation Comments Albumin Lvl (test code = Albumin Lvl) 3.6 3.5-5.0 [facility]2015-12-28 16:57:00 Test Item Value Reference Range Interpretation Comments Total Protein (test code = Total 7.3 6.4-8.4 Protein) [facility]2015-12-28 16:57:00 Test Item Value Reference Range Interpretation Comments Bili Total (test code = Bili Total) 0.4 0.2-1.3 [facility]2015-12-28 16:57:00 Test Item Value Reference Range Interpretation Comments Glucose Lvl (test code = Glucose Lvl) 95 70-99 [facility]2015-12-28 16:57:00 Test Item Value Reference Range Interpretation Comments Creatinine Lvl (test code = Creatinine 0.93 0.50-1.40 Lvl) [facility]2015-12-28 16:57:00 Test Item Value Reference Range Interpretation Comments BUN (test code = BUN) 9 7-22 [facility]2015-12-28 16:57:00 Test Item Value Reference Range Interpretation Comments Sodium Lvl (test code = Sodium Lvl) 139 135-145 [facility]2015-12-28 16:57:00 Test Item Value Reference Range Interpretation Comments A/G Ratio (test code = A/G Ratio) 1.0 0.7-1.6 [facility]2015-12-28 16:57:00 Test Item Value Reference Range Interpretation Comments Globulin (test code = Globulin) 3.7 2.0-4.0 [facility]2015-12-28 16:57:00 Test Item Value Reference Range Interpretation Comments B/C Ratio (test code = B/C Ratio) 10 - [facility]2015-12-28 16:57:00 Test Item Value Reference Range Interpretation Comments AGAP (test code = AGAP) 12.6 10.0-20.0 [facility]ElosqalJEIFKLXZZMVHN2792-77-88 16:57:00 Test Item Value Reference Range Interpretation Comments S Preg (test code = S Negative *NA*(08/26/15 Preg) 10:57 AM) [facility] CenterYkybjsqUBZKLDLXFN7260-77-40 16:57:00 Test Item Value Reference Range Interpretation Comments Eosinophils # (test code 0.4 See_Comment [A utomated message] The = Eosinophils #) system whic h generated this result tra nsmitted reference range : <=0.5. The reference r kat was not used to int erpret this result as normal/abnormal . [facility] CenterJzgzdufHLBDDDXVQA2118-62-08 16:57:00 Test Item Value Reference Range Interpretation Comments Microcyte (test code = 1+ *ABN*(08/26/15 Microcyte) 10:57 AM) [facility] CenterUbdfbjdIDQMFSBPIV3090-32-63 16:57:00 Test Item Value Reference Range Interpretation Comments Basophils # (test code 0.1 See_Comment [Aut omated message] The = Basophils #) system which generated this result tra nsmitted reference range : <=0.2. The reference r kat was not used to int erpret this result as normal/abnormal . [facility] CenterAmmurzyYSBUHCMLLO5227-21-24 16:57:00 Test Item Value Reference Range Interpretation Comments Monocytes (test code = Monocytes) 8.6 2.0-12.0 [facility] CenterQsahlfjPMTZUFURKY1410-58-65 16:57:00 Test Item Value Reference Range Interpretation Comments Lymphocytes (test code = Lymphocytes) 40.6 20.0-40.0 [facility] CenterGywcmocDEKMLRYEMC8543-35-04 16:57:00 Test Item Value Reference Range Interpretation Comments Eosinophils (test code = 5.0 See_Comment [A utomated message] The Eosinophils) system which ge nerated this result tra nsmitted reference range : <=4.0. The reference r kat was not used to int erpret this result as normal/abnormal . [facility] CenterVpmcgthXGKVHTIVZI8199-23-31 16:57:00 Test Item Value Reference Range Interpretation Comments Segs (test code = Segs) 44.8 45.0-75.0 [facility] CenterXnjlcdpPEKBHDVWSJ3112-25-09 16:57:00 Test Item Value Reference Range Interpretation Comments Basophils (test code = 1.0 See_Comment [Aut omated message] The Basophils) system which ge nerated this result tra nsmitted reference range : <=1.0. The reference r kat was not used to int erpret this result as normal/abnormal . [facility] CenterZsubktnCLRXFVGGEK1317-07-95 16:57:00 Test Item Value Reference Range Interpretation Comments Segs-Bands # (test code = Segs-Bands #) 3.3 1.5-8.1 [facility] CenterVfotzrkXRGCVPNSLY2886-83-37 16:57:00 Test Item Value Reference Range Interpretation Comments Monocytes # (test code 0.6 See_Comment [Aut omated message] The = Monocytes #) system which generated this result tra nsmitted reference range : <=0.8. The reference r kat was not used to int erpret this result as normal/abnormal . [facility] CenterSwjtxlpIHWRYLDLVC9967-13-59 16:57:00 Test Item Value Reference Range Interpretation Comments Lymphocytes # (test code = Lymphocytes 3.0 1.0-5.5 #) [facility] CenterTjrryjpZNAMRVJPYV2452-72-83 16:57:00 Test Item Value Reference Range Interpretation Comments PT (test code = PT) 14.0 s 12.0-14.7 [facility] CenterUkbbrjyJAIXSCTUAL7564-45-97 16:57:00 Test Item Value Reference Range Interpretation Comments INR (test code = INR) 1.05 0.85-1.17 [facility] CenterAjjrwjmKZGVNELDGA9509-33-08 16:57:00 Test Item Value Reference Range Interpretation Comments PTT (test code = PTT) 30.3 s 22.9-35.8 [facility] CenterQmldzrsXOMYEGVMMR5234-19-52 16:57:00 Test Item Value Reference Range Interpretation Comments MPV (test code = MPV) 8.9 7.4-10.4 [facility] CenterHrhvcsmLBYFDWAPWK1377-39-43 16:57:00 Test Item Value Reference Range Interpretation Comments RDW (test code = RDW) 15.8 11.5-14.5 [facility] CenterXtvfuexPWAZKPXBJH6306-63-17 16:57:00 Test Item Value Reference Range Interpretation Comments Platelet (test code = Platelet) 271 133-450 [facility] CenterYvruuppVKADHVGYXG4828-75-01 16:57:00 Test Item Value Reference Range Interpretation Comments WBC (test code = WBC) 7.3 3.7-10.4 [facility] CenterRotzyprQYYVCYTJXH6636-58-44 16:57:00 Test Item Value Reference Range Interpretation Comments RBC (test code = RBC) 5.14 4.20-5.40 [facility] CenterWznbeepKNFCVOYJEE5714-66-21 16:57:00 Test Item Value Reference Range Interpretation Comments MCV (test code = MCV) 77.9 80.0-98.0 [facility] CenterIcnwlsaGURALNWYEO8260-68-86 16:57:00 Test Item Value Reference Range Interpretation Comments MCH (test code = MCH) 23.9 pg 27.0-31.0 [facility] CenterFvnsslmAQPIVCLERX6223-27-10 16:57:00 Test Item Value Reference Range Interpretation Comments MCHC (test code = MCHC) 30.7 32.0-36.0 [facility] CenterYcrtuyjAWRSGUWUPK8289-29-61 16:57:00 Test Item Value Reference Range Interpretation Comments Hct (test code = Hct) 40.1 36.0-48.0 [facility] CenterZznnsieXYZZXYMCUH4859-51-34 16:57:00 Test Item Value Reference Range Interpretation Comments Hgb (test code = Hgb) 12.3 12.0-16.0 [facility]2015-12-28 16:57:00 Test Item Value Reference Range Interpretation Comments eGFR (test code = eGFR) 86 [facility]2015-12-28 16:57:00 Test Item Value Reference Range Interpretation Comments Potassium Lvl (test code = Potassium 3.6 3.5-5.1 Lvl) [facility]2015-12-28 16:57:00 Test Item Value Reference Range Interpretation Comments CO2 (test code = CO2) 27 24-32 [facility]2015-12-28 16:57:00 Test Item Value Reference Range Interpretation Comments Chloride Lvl (test code = Chloride Lvl) 103 95-109 [facility]2015-12-28 16:57:00 Test Item Value Reference Range Interpretation Comments Calcium Lvl (test code = Calcium Lvl) 9.4 8.5-10.5 [facility]2015-12-28 16:57:00 Test Item Value Reference Range Interpretation Comments AST (test code = AST) 16 See_Comment [Auto mated message] The system which ge nerated this result transmit arvind reference range : <=37. The reference range was not used to interpr et this result as mario l/abnormal. [facility]2015-12-28 16:57:00 Test Item Value Reference Range Interpretation Comments ALT (test code = ALT) 43 See_Comment [Auto mated message] The system which ge nerated this result transmit arvind reference range : <=65. The reference range was not used to interpr et this result as mario l/abnormal. [facility]2015-12-28 16:57:00 Test Item Value Reference Range Interpretation Comments Alk Phos (test code = Alk Phos) 97 39-136 [facility]2015-12-28 16:57:00 Test Item Value Reference Range Interpretation Comments Albumin Lvl (test code = Albumin Lvl) 3.6 3.5-5.0 [place] 610125-12-28 16:57:00 Test Item Value Reference Range Interpretation Comments Total Protein (test code = Total 7.3 6.4-8.4 Protein) [facility]2015-12-28 16:57:00 Test Item Value Reference Range Interpretation Comments Bili Total (test code = Bili Total) 0.4 0.2-1.3 [facility]2015-12-28 16:57:00 Test Item Value Reference Range Interpretation Comments Glucose Lvl (test code = Glucose Lvl) 95 70-99 [facility]2015-12-28 16:57:00 Test Item Value Reference Range Interpretation Comments Creatinine Lvl (test code = Creatinine 0.93 0.50-1.40 Lvl) [facility]2015-12-28 16:57:00 Test Item Value Reference Range Interpretation Comments BUN (test code = BUN) 9 - [facility]2015-12-28 16:57:00 Test Item Value Reference Range Interpretation Comments Sodium Lvl (test code = Sodium Lvl) 139 135-145 [facility]2015-12-28 16:57:00 Test Item Value Reference Range Interpretation Comments A/G Ratio (test code = A/G Ratio) 1.0 0.7-1.6 [facility]2015-12-28 16:57:00 Test Item Value Reference Range Interpretation Comments Globulin (test code = Globulin) 3.7 2.0-4.0 [facility]2015-12-28 16:57:00 Test Item Value Reference Range Interpretation Comments B/C Ratio (test code = B/C Ratio) 10 - [facility]2015-12-28 16:57:00 Test Item Value Reference Range Interpretation Comments AGAP (test code = AGAP) 12.6 10.0-20.0 [facility]TsyfjxkGARWAYNHSEVCZ7555-67-64 16:57:00 Test Item Value Reference Range Interpretation Comments S Preg (test code = S Negative *NA*(08/26/15 Preg) 10:57 AM) [facility] CenterMprgwkpJABEWPTJRO2966-05-65 16:57:00 Test Item Value Reference Range Interpretation Comments Eosinophils # (test code 0.4 See_Comment [A utomated message] The = Eosinophils #) system whic h generated this result tra nsmitted reference range : <=0.5. The reference r kat was not used to int erpret this result as normal/abnormal . [facility] CenterZdhojdkNZPPTSJMXO0358-10-37 16:57:00 Test Item Value Reference Range Interpretation Comments Microcyte (test code = 1+ *ABN*(08/26/15 Microcyte) 10:57 AM) [facility] CenterLxoegpjJVQFZZLKUU8158-21-98 16:57:00 Test Item Value Reference Range Interpretation Comments Basophils # (test code 0.1 See_Comment [Aut omated message] The = Basophils #) system which generated this result tra nsmitted reference range : <=0.2. The reference r kat was not used to int erpret this result as normal/abnormal . [facility] CenterBqfmjfoGJAHJRZMTE7396-22-01 16:57:00 Test Item Value Reference Range Interpretation Comments Monocytes (test code = Monocytes) 8.6 2.0-12.0 [facility] CenterYaddgblOBFXOOHEAS9086-24-48 16:57:00 Test Item Value Reference Range Interpretation Comments Lymphocytes (test code = Lymphocytes) 40.6 20.0-40.0 [facility] CenterMdetwyyGUDIUUHGYP2872-94-80 16:57:00 Test Item Value Reference Range Interpretation Comments Eosinophils (test code = 5.0 See_Comment [A utomated message] The Eosinophils) system which ge nerated this result tra nsmitted reference range : <=4.0. The reference r kat was not used to int erpret this result as normal/abnormal . [facility] CenterWyzadipDYFKDJZXEC3251-72-37 16:57:00 Test Item Value Reference Range Interpretation Comments Segs (test code = Segs) 44.8 45.0-75.0 [facility]NtogqljZJXQKMVKHM2289-41-38 16:57:00 Test Item Value Reference Range Interpretation Comments Basophils (test code = 1.0 See_Comment [Aut omated message] The Basophils) system which ge nerated this result tra nsmitted reference range : <=1.0. The reference r kat was not used to int erpret this result as normal/abnormal . [facility] CenterSqcbvnmPEDGTKRDLT5585-02-89 16:57:00 Test Item Value Reference Range Interpretation Comments Segs-Bands # (test code = Segs-Bands #) 3.3 1.5-8.1 [facility] CenterAcfjifmSHBRPOIOOU9270-52-00 16:57:00 Test Item Value Reference Range Interpretation Comments Monocytes # (test code 0.6 See_Comment [Aut omated message] The = Monocytes #) system which generated this result tra nsmitted reference range : <=0.8. The reference r kat was not used to int erpret this result as normal/abnormal . [facility] CenterKzoblxlUJYJYIKTGV2510-54-62 16:57:00 Test Item Value Reference Range Interpretation Comments Lymphocytes # (test code = Lymphocytes 3.0 1.0-5.5 #) [facility] CenterVoasnolICPWJAYWGG6128-01-78 16:57:00 Test Item Value Reference Range Interpretation Comments PT (test code = PT) 14.0 s 12.0-14.7 [facility] CenterYjlrbbqLOEWUWKTXN3339-71-29 16:57:00 Test Item Value Reference Range Interpretation Comments INR (test code = INR) 1.05 0.85-1.17 [facility] CenterNnuzhavQWCBLORPXZ6384-71-58 16:57:00 Test Item Value Reference Range Interpretation Comments PTT (test code = PTT) 30.3 s 22.9-35.8 [facility] CenterNurfaneXRXKHHFIXW4651-68-47 16:57:00 Test Item Value Reference Range Interpretation Comments MPV (test code = MPV) 8.9 7.4-10.4 [facility] CenterQsbcbkeSCQKKLQUFZ6581-13-57 16:57:00 Test Item Value Reference Range Interpretation Comments RDW (test code = RDW) 15.8 11.5-14.5 [facility] CenterXdsprggJXGHOSTRJQ3188-77-64 16:57:00 Test Item Value Reference Range Interpretation Comments Platelet (test code = Platelet) 271 133-450 [facility] CenterEqubxeiLZGIKNWBCN1081-37-03 16:57:00 Test Item Value Reference Range Interpretation Comments WBC (test code = WBC) 7.3 3.7-10.4 [facility] CenterNphbxmcHVALPJEZSB9319-82-26 16:57:00 Test Item Value Reference Range Interpretation Comments RBC (test code = RBC) 5.14 4.20-5.40 [facility] CenterIcrchadFNJUHWQFAV5744-72-04 16:57:00 Test Item Value Reference Range Interpretation Comments MCV (test code = MCV) 77.9 80.0-98.0 [facility] CenterGftcgpjWKWTLQLOUF9937-44-78 16:57:00 Test Item Value Reference Range Interpretation Comments MCH (test code = MCH) 23.9 pg 27.0-31.0 [facility] CenterVgolookRLGRHJRGZH7852-83-12 16:57:00 Test Item Value Reference Range Interpretation Comments MCHC (test code = MCHC) 30.7 32.0-36.0 [facility] CenterOwbuoinYRLOYBWQUN0137-35-53 16:57:00 Test Item Value Reference Range Interpretation Comments Hct (test code = Hct) 40.1 36.0-48.0 [facility] CenterAramqomPSQFLMLAYE7769-21-24 16:57:00 Test Item Value Reference Range Interpretation Comments Hgb (test code = Hgb) 12.3 12.0-16.0 [facility]2015-12-28 16:57:00 Test Item Value Reference Range Interpretation Comments eGFR (test code = eGFR) 86 [facility]2015-12-28 16:57:00 Test Item Value Reference Range Interpretation Comments Potassium Lvl (test code = Potassium 3.6 3.5-5.1 Lvl) [facility]2015-12-28 16:57:00 Test Item Value Reference Range Interpretation Comments CO2 (test code = CO2) 27 24-32 [facility]2015-12-28 16:57:00 Test Item Value Reference Range Interpretation Comments Chloride Lvl (test code = Chloride Lvl) 103 95-109 [facility]2015-12-28 16:57:00 Test Item Value Reference Range Interpretation Comments Calcium Lvl (test code = Calcium Lvl) 9.4 8.5-10.5 [facility]2015-12-28 16:57:00 Test Item Value Reference Range Interpretation Comments AST (test code = AST) 16 See_Comment [Auto mated message] The system which ge nerated this result transmit arvind reference range : <=37. The reference range was not used to interpr et this result as mario l/abnormal. [facility]2015-12-28 16:57:00 Test Item Value Reference Range Interpretation Comments ALT (test code = ALT) 43 See_Comment [Auto mated message] The system which ge nerated this result transmit arvind reference range : <=65. The reference range was not used to interpr et this result as mario l/abnormal. [facility]2015-12-28 16:57:00 Test Item Value Reference Range Interpretation Comments Alk Phos (test code = Alk Phos) 97 39-136 [facility]2015-12-28 16:57:00 Test Item Value Reference Range Interpretation Comments Albumin Lvl (test code = Albumin Lvl) 3.6 3.5-5.0 [facility]2015-12-28 16:57:00 Test Item Value Reference Range Interpretation Comments Total Protein (test code = Total 7.3 6.4-8.4 Protein) [facility]2015-12-28 16:57:00 Test Item Value Reference Range Interpretation Comments Bili Total (test code = Bili Total) 0.4 0.2-1.3 [facility]2015-12-28 16:57:00 Test Item Value Reference Range Interpretation Comments Glucose Lvl (test code = Glucose Lvl) 95 70-99 [facility]2015-12-28 16:57:00 Test Item Value Reference Range Interpretation Comments Creatinine Lvl (test code = Creatinine 0.93 0.50-1.40 Lvl) [facility]2015-12-28 16:57:00 Test Item Value Reference Range Interpretation Comments BUN (test code = BUN) 9 - [facility]2015-12-28 16:57:00 Test Item Value Reference Range Interpretation Comments Sodium Lvl (test code = Sodium Lvl) 139 135-145 [facility]2015-12-28 16:57:00 Test Item Value Reference Range Interpretation Comments A/G Ratio (test code = A/G Ratio) 1.0 0.7-1.6 [facility]2015-12-28 16:57:00 Test Item Value Reference Range Interpretation Comments Globulin (test code = Globulin) 3.7 2.0-4.0 [facility]2015-12-28 16:57:00 Test Item Value Reference Range Interpretation Comments B/C Ratio (test code = B/C Ratio) 10 6-25 [facility]2015-12-28 16:57:00 Test Item Value Reference Range Interpretation Comments AGAP (test code = AGAP) 12.6 10.0-20.0 [facility]NWYQHECSTRP4361-98-77 16:57:00 Test Item Value Reference Range Interpretation Comments S Preg (test code = S Negative *NA*(08/26/15 Preg) 10:57 AM) [facility] CenterSsamphoJDCQYUUDUN8146-54-16 16:57:00 Test Item Value Reference Range Interpretation Comments Eosinophils # (test code 0.4 See_Comment [A utomated message] The = Eosinophils #) system whic h generated this result tra nsmitted reference range : <=0.5. The reference r kat was not used to int erpret this result as normal/abnormal . [facility] CenterWrjspgtTLYLZDMIDZ7134-61-81 16:57:00 Test Item Value Reference Range Interpretation Comments Microcyte (test code = 1+ *ABN*(08/26/15 Microcyte) 10:57 AM) [facility] CenterNlwnijzLBMDNBVZIX0284-80-64 16:57:00 Test Item Value Reference Range Interpretation Comments Basophils # (test code 0.1 See_Comment [Aut omated message] The = Basophils #) system which generated this result tra nsmitted reference range : <=0.2. The reference r kat was not used to int erpret this result as normal/abnormal . [facility] CenterSsmeoylCTUAYJJAHC9147-60-72 16:57:00 Test Item Value Reference Range Interpretation Comments Monocytes (test code = Monocytes) 8.6 2.0-12.0 [facility] CenterNvynsqxDPMQYROERF8813-61-23 16:57:00 Test Item Value Reference Range Interpretation Comments Lymphocytes (test code = Lymphocytes) 40.6 20.0-40.0 [facility] CenterHzrgvdpOJCATHPAPM6995-87-31 16:57:00 Test Item Value Reference Range Interpretation Comments Eosinophils (test code = 5.0 See_Comment [A utomated message] The Eosinophils) system which ge nerated this result tra nsmitted reference range : <=4.0. The reference r kat was not used to int erpret this result as normal/abnormal . [facility] CenterHajfwyuDKFQEWDMSJ3927-49-95 16:57:00 Test Item Value Reference Range Interpretation Comments Segs (test code = Segs) 44.8 45.0-75.0 [facility] CenterUkleoxwSSHLKSMRZG6426-08-74 16:57:00 Test Item Value Reference Range Interpretation Comments Basophils (test code = 1.0 See_Comment [Aut omated message] The Basophils) system which ge nerated this result tra nsmitted reference range : <=1.0. The reference r kat was not used to int erpret this result as normal/abnormal . [facility] CenterXspqshwUQTNGLISPJ6446-79-75 16:57:00 Test Item Value Reference Range Interpretation Comments Segs-Bands # (test code = Segs-Bands #) 3.3 1.5-8.1 [facility] CenterMbzvxrlIHCMSYBXWJ9066-21-75 16:57:00 Test Item Value Reference Range Interpretation Comments Monocytes # (test code 0.6 See_Comment [Aut omated message] The = Monocytes #) system which generated this result tra nsmitted reference range : <=0.8. The reference r kat was not used to int erpret this result as normal/abnormal . [facility] CenterBfsysjbRJEPPAQDJX8878-81-36 16:57:00 Test Item Value Reference Range Interpretation Comments Lymphocytes # (test code = Lymphocytes 3.0 1.0-5.5 #) [facility] CenterBxamxigXCOCTQGJBW8999-87-42 16:57:00 Test Item Value Reference Range Interpretation Comments PT (test code = PT) 14.0 s 12.0-14.7 [facility] CenterTbsbchsBTSQJAWPSE3602-98-48 16:57:00 Test Item Value Reference Range Interpretation Comments INR (test code = INR) 1.05 0.85-1.17 [facility] CenterZbdjcqdTKYGJLTBKX9051-36-18 16:57:00 Test Item Value Reference Range Interpretation Comments PTT (test code = PTT) 30.3 s 22.9-35.8 [facility] CenterQdkomdzTQARNVWOVY7963-97-14 16:57:00 Test Item Value Reference Range Interpretation Comments MPV (test code = MPV) 8.9 7.4-10.4 [facility] CenterIdkdxnlHOIWQWISLB2384-81-55 16:57:00 Test Item Value Reference Range Interpretation Comments RDW (test code = RDW) 15.8 11.5-14.5 [facility] CenterFbzeihcEKABFLFBUR5628-74-09 16:57:00 Test Item Value Reference Range Interpretation Comments Platelet (test code = Platelet) 271 133-450 [facility] CenterBrkmujaNHANGASFOK3818-51-98 16:57:00 Test Item Value Reference Range Interpretation Comments WBC (test code = WBC) 7.3 3.7-10.4 [facility]2015-12-28 16:57:00 Test Item Value Reference Range Interpretation Comments eGFR (test code = eGFR) 86 [facility]2015-12-28 16:57:00 Test Item Value Reference Range Interpretation Comments Potassium Lvl (test code = Potassium 3.6 3.5-5.1 Lvl) [facility]2015-12-28 16:57:00 Test Item Value Reference Range Interpretation Comments CO2 (test code = CO2) 27 24-32 [facility]2015-12-28 16:57:00 Test Item Value Reference Range Interpretation Comments Chloride Lvl (test code = Chloride Lvl) 103 95-109 [facility]2015-12-28 16:57:00 Test Item Value Reference Range Interpretation Comments Calcium Lvl (test code = Calcium Lvl) 9.4 8.5-10.5 [facility]2015-12-28 16:57:00 Test Item Value Reference Range Interpretation Comments AST (test code = AST) 16 See_Comment [Auto mated message] The system which ge nerated this result transmit arvind reference range : <=37. The reference range was not used to interpr et this result as mario l/abnormal. [facility] CenterCqskktcCJTYPKCCPJ4573-03-17 16:57:00 Test Item Value Reference Range Interpretation Comments RBC (test code = RBC) 5.14 4.20-5.40 [facility]2015-12-28 16:57:00 Test Item Value Reference Range Interpretation Comments ALT (test code = ALT) 43 See_Comment [Auto mated message] The system which ge nerated this result transmit arvind reference range : <=65. The reference range was not used to interpr et this result as mario l/abnormal. [facility]2015-12-28 16:57:00 Test Item Value Reference Range Interpretation Comments Alk Phos (test code = Alk Phos) 97 39-136 [facility]2015-12-28 16:57:00 Test Item Value Reference Range Interpretation Comments Albumin Lvl (test code = Albumin Lvl) 3.6 3.5-5.0 [facility]2015-12-28 16:57:00 Test Item Value Reference Range Interpretation Comments Total Protein (test code = Total 7.3 6.4-8.4 Protein) [facility]2015-12-28 16:57:00 Test Item Value Reference Range Interpretation Comments Bili Total (test code = Bili Total) 0.4 0.2-1.3 [facility]2015-12-28 16:57:00 Test Item Value Reference Range Interpretation Comments Glucose Lvl (test code = Glucose Lvl) 95 70-99 [facility]2015-12-28 16:57:00 Test Item Value Reference Range Interpretation Comments Creatinine Lvl (test code = Creatinine 0.93 0.50-1.40 Lvl) [facility]2015-12-28 16:57:00 Test Item Value Reference Range Interpretation Comments BUN (test code = BUN) 9 7-22 [facility]2015-12-28 16:57:00 Test Item Value Reference Range Interpretation Comments Sodium Lvl (test code = Sodium Lvl) 139 135-145 [facility]2015-12-28 16:57:00 Test Item Value Reference Range Interpretation Comments A/G Ratio (test code = A/G Ratio) 1.0 0.7-1.6 [facility] CenterBdnsjlqKUWUNREKMX2357-12-48 16:57:00 Test Item Value Reference Range Interpretation Comments MCV (test code = MCV) 77.9 80.0-98.0 [facility]2015-12-28 16:57:00 Test Item Value Reference Range Interpretation Comments Globulin (test code = Globulin) 3.7 2.0-4.0 [facility]2015-12-28 16:57:00 Test Item Value Reference Range Interpretation Comments B/C Ratio (test code = B/C Ratio) 10 6-25 [facility]2015-12-28 16:57:00 Test Item Value Reference Range Interpretation Comments AGAP (test code = AGAP) 12.6 10.0-20.0 [facility]IgmoaywKPENXLDVUSXFV7899-63-60 16:57:00 Test Item Value Reference Range Interpretation Comments S Preg (test code = S Negative *NA*(08/26/15 Preg) 10:57 AM) [facility] CenterKrxppmvQLDACSMRXT4300-27-67 16:57:00 Test Item Value Reference Range Interpretation Comments Eosinophils # (test code 0.4 See_Comment [A utomated message] The = Eosinophils #) system [facility] h generated this result tra nsmitted reference range : <=0.5. The reference r kat was not used to int erpret this result as normal/abnormal . [facility] CenterVsbkfjbLSOFZHFTIC4892-88-64 16:57:00 Test Item Value Reference Range Interpretation Comments Microcyte (test code = 1+ *ABN*(08/26/15 Microcyte) 10:57 AM) [facility] CenterVsfrkrrEMDPAKPDSL8555-64-59 16:57:00 Test Item Value Reference Range Interpretation Comments Basophils # (test code 0.1 See_Comment [Aut omated message] The = Basophils #) system which generated this result tra nsmitted reference range : <=0.2. The reference r kat was not used to int erpret this result as normal/abnormal . [facility] CenterZrbneyxIANKLTPUGZ0343-59-73 16:57:00 Test Item Value Reference Range Interpretation Comments Monocytes (test code = Monocytes) 8.6 2.0-12.0 [facility] CenterAlqlondUTIRMSASKR3076-12-53 16:57:00 Test Item Value Reference Range Interpretation Comments Lymphocytes (test code = Lymphocytes) 40.6 20.0-40.0 [facility] CenterOzevtdmQPYDQZXGMH9779-04-08 16:57:00 Test Item Value Reference Range Interpretation Comments Eosinophils (test code = 5.0 See_Comment [A utomated message] The Eosinophils) system which ge nerated this result tra nsmitted reference range : <=4.0. The reference r kat was not used to int erpret this result as normal/abnormal . [facility] CenterXiwvsueKAHATXXCOQ1704-06-61 16:57:00 Test Item Value Reference Range Interpretation Comments MCH (test code = MCH) 23.9 pg 27.0-31.0 [facility] CenterMdkgmebRCEJDMRAGG5094-09-65 16:57:00 Test Item Value Reference Range Interpretation Comments Segs (test code = Segs) 44.8 45.0-75.0 [facility] CenterJsvgfrpZRTIDDFNWI5792-47-49 16:57:00 Test Item Value Reference Range Interpretation Comments Basophils (test code = 1.0 See_Comment [Aut omated message] The Basophils) system which ge nerated this result tra nsmitted reference range : <=1.0. The reference r kat was not used to int erpret this result as normal/abnormal . [facility] CenterBcleejoSBXFEPEHBL2151-41-92 16:57:00 Test Item Value Reference Range Interpretation Comments Segs-Bands # (test code = Segs-Bands #) 3.3 1.5-8.1 [facility] CenterOhdgkklUQJBCHEPFL3719-53-06 16:57:00 Test Item Value Reference Range Interpretation Comments Monocytes # (test code 0.6 See_Comment [Aut omated message] The = Monocytes #) system which generated this result tra nsmitted reference range : <=0.8. The reference r kat was not used to int erpret this result as normal/abnormal . [facility] CenterVhwlkkkIXPTMUGSZO1283-17-21 16:57:00 Test Item Value Reference Range Interpretation Comments Lymphocytes # (test code = Lymphocytes 3.0 1.0-5.5 #) [facility] CenterRcciqnkFWQFRAFUAD5153-24-39 16:57:00 Test Item Value Reference Range Interpretation Comments PT (test code = PT) 14.0 s 12.0-14.7 [facility] CenterJeruuzfFORFYTCNLO9213-00-48 16:57:00 Test Item Value Reference Range Interpretation Comments INR (test code = INR) 1.05 0.85-1.17 [facility] CenterPhnbidjTKWNDZXSEI8287-81-09 16:57:00 Test Item Value Reference Range Interpretation Comments PTT (test code = PTT) 30.3 s 22.9-35.8 [facility] CenterSueaevsZSGWXLRGTX5580-86-99 16:57:00 Test Item Value Reference Range Interpretation Comments MPV (test code = MPV) 8.9 7.4-10.4 [facility] CenterKzqzzcbTVFTFXZRKE6879-73-50 16:57:00 Test Item Value Reference Range Interpretation Comments RDW (test code = RDW) 15.8 11.5-14.5 [facility] CenterCbqhkqeBXGQDMSQUW2435-52-20 16:57:00 Test Item Value Reference Range Interpretation Comments MCHC (test code = MCHC) 30.7 32.0-36.0 [facility] CenterEwcunzxMXAIMJPPII1202-53-16 16:57:00 Test Item Value Reference Range Interpretation Comments Platelet (test code = Platelet) 271 133-450 [facility] CenterPifnbmoDDUDXQTCLA6090-11-25 16:57:00 Test Item Value Reference Range Interpretation Comments WBC (test code = WBC) 7.3 3.7-10.4 [facility] CenterWcdrqheJUOUFDEAGV6789-10-87 16:57:00 Test Item Value Reference Range Interpretation Comments RBC (test code = RBC) 5.14 4.20-5.40 [facility] CenterIvvmrsyLWIKWEOYSB5374-86-43 16:57:00 Test Item Value Reference Range Interpretation Comments MCV (test code = MCV) 77.9 80.0-98.0 [facility] CenterHcbqrgkKPSNUTHUFH5692-29-13 16:57:00 Test Item Value Reference Range Interpretation Comments MCH (test code = MCH) 23.9 pg 27.0-31.0 [facility] CenterUwaizdxSYZLOKRDRF5932-55-43 16:57:00 Test Item Value Reference Range Interpretation Comments MCHC (test code = MCHC) 30.7 32.0-36.0 [facility] CenterElbgdycWOEKHAMFLK0707-19-62 16:57:00 Test Item Value Reference Range Interpretation Comments Hct (test code = Hct) 40.1 36.0-48.0 [facility] CenterKxppljzJVUZMXHMVM8577-63-03 16:57:00 Test Item Value Reference Range Interpretation Comments Hgb (test code = Hgb) 12.3 12.0-16.0 [facility] CenterDvsbnzsMGYDJDBLVR5236-64-51 16:57:00 Test Item Value Reference Range Interpretation Comments Hct (test code = Hct) 40.1 36.0-48.0 [facility] CenterQjndflkQUILYQGTNZ3271-01-50 16:57:00 Test Item Value Reference Range Interpretation Comments Hgb (test code = Hgb) 12.3 12.0-16.0 [facility]2015-12-28 16:57:00 Test Item Value Reference Range Interpretation Comments eGFR (test code = eGFR) 86 [facility]2015-12-28 16:57:00 Test Item Value Reference Range Interpretation Comments Potassium Lvl (test code = Potassium 3.6 3.5-5.1 Lvl) [facility]2015-12-28 16:57:00 Test Item Value Reference Range Interpretation Comments CO2 (test code = CO2) 27 24-32 [facility]2015-12-28 16:57:00 Test Item Value Reference Range Interpretation Comments Chloride Lvl (test code = Chloride Lvl) 103 95-109 [facility]2015-12-28 16:57:00 Test Item Value Reference Range Interpretation Comments Calcium Lvl (test code = Calcium Lvl) 9.4 8.5-10.5 [facility]2015-12-28 16:57:00 Test Item Value Reference Range Interpretation Comments AST (test code = AST) 16 See_Comment [Auto mated message] The system which ge nerated this result transmit arvind reference range : <=37. The reference range was not used to interpr et this result as mario l/abnormal. [facility]2015-12-28 16:57:00 Test Item Value Reference Range Interpretation Comments ALT (test code = ALT) 43 See_Comment [Auto mated message] The system which ge nerated this result transmit arvind reference range : <=65. The reference range was not used to interpr et this result as mario l/abnormal. [place] 610125-12-28 16:57:00 Test Item Value Reference Range Interpretation Comments Alk Phos (test code = Alk Phos) 97 39-136 [facility]2015-12-28 16:57:00 Test Item Value Reference Range Interpretation Comments Albumin Lvl (test code = Albumin Lvl) 3.6 3.5-5.0 [facility]2015-12-28 16:57:00 Test Item Value Reference Range Interpretation Comments Total Protein (test code = Total 7.3 6.4-8.4 Protein) [place] 610125-12-28 16:57:00 Test Item Value Reference Range Interpretation Comments Bili Total (test code = Bili Total) 0.4 0.2-1.3 [place] 610125-12-28 16:57:00 Test Item Value Reference Range Interpretation Comments Glucose Lvl (test code = Glucose Lvl) 95 70-99 [facility]2015-12-28 16:57:00 Test Item Value Reference Range Interpretation Comments Creatinine Lvl (test code = Creatinine 0.93 0.50-1.40 Lvl) [place] 610125-12-28 16:57:00 Test Item Value Reference Range Interpretation Comments BUN (test code = BUN) 9 7-22 [facility]2015-12-28 16:57:00 Test Item Value Reference Range Interpretation Comments Sodium Lvl (test code = Sodium Lvl) 139 135-145 [facility]2015-12-28 16:57:00 Test Item Value Reference Range Interpretation Comments A/G Ratio (test code = A/G Ratio) 1.0 0.7-1.6 [facility]2015-12-28 16:57:00 Test Item Value Reference Range Interpretation Comments Globulin (test code = Globulin) 3.7 2.0-4.0 [facility]2015-12-28 16:57:00 Test Item Value Reference Range Interpretation Comments B/C Ratio (test code = B/C Ratio) 10 6-25 [facility]2015-12-28 16:57:00 Test Item Value Reference Range Interpretation Comments AGAP (test code = AGAP) 12.6 10.0-20.0 [facility]JUTPSG[facility]UIAI1277[facility]78-40 16:57:00 Test Item Value Reference Range Interpretation Comments S Preg (test code = S Negative *NA*(08/26/15 Preg) 10:57 AM) [facility] CenterVyiohpbAIERNVGXNX1479-23-10 16:57:00 Test Item Value Reference Range Interpretation Comments Eosinophils # (test code 0.4 See_Comment [A utomated message] The = Eosinophils #) system whic h generated this result tra nsmitted reference range : <=0.5. The reference r kat was not used to int erpret this result as normal/abnormal . [facility] CenterXqwhcloHEGJWSNPKP5461-34-13 16:57:00 Test Item Value Reference Range Interpretation Comments Microcyte (test code = 1+ *ABN*(08/26/15 Microcyte) 10:57 AM) [facility] CenterYhuffswSORTWYVUXH5076-43-28 16:57:00 Test Item Value Reference Range Interpretation Comments Basophils # (test code 0.1 See_Comment [Aut omated message] The = Basophils #) system which generated this result tra nsmitted reference range : <=0.2. The reference r kat was not used to int erpret this result as normal/abnormal . [facility] CenterSjnqxasCEXWPFPCRC1262-51-53 16:57:00 Test Item Value Reference Range Interpretation Comments Monocytes (test code = Monocytes) 8.6 2.0-12.0 [facility] CenterWirfzphRMZELCTUEU7455-24-31 16:57:00 Test Item Value Reference Range Interpretation Comments Lymphocytes (test code = Lymphocytes) 40.6 20.0-40.0 [facility] CenterXjsmdirEFDRWATQXR5725-26-36 16:57:00 Test Item Value Reference Range Interpretation Comments Eosinophils (test code = 5.0 See_Comment [A utomated message] The Eosinophils) system which ge nerated this result tra nsmitted reference range : <=4.0. The reference r kat was not used to int erpret this result as normal/abnormal . [facility] CenterHewfguvHZXFWFDKWH5774-49-93 16:57:00 Test Item Value Reference Range Interpretation Comments Segs (test code = Segs) 44.8 45.0-75.0 [facility] CenterOupgalhIEQTYAOUXE6852-06-20 16:57:00 Test Item Value Reference Range Interpretation Comments Basophils (test code = 1.0 See_Comment [Aut omated message] The Basophils) system which ge nerated this result tra nsmitted reference range : <=1.0. The reference r kat was not used to int erpret this result as normal/abnormal . [facility] CenterCrmdqulIYNTYCCSVP7501-34-60 16:57:00 Test Item Value Reference Range Interpretation Comments Segs-Bands # (test code = Segs-Bands #) 3.3 1.5-8.1 [facility] CenterRzzzijzGVJXEZHPNC6437-83-59 16:57:00 Test Item Value Reference Range Interpretation Comments Monocytes # (test code 0.6 See_Comment [Aut omated message] The = Monocytes #) system which generated this result tra nsmitted reference range : <=0.8. The reference r kat was not used to int erpret this result as normal/abnormal . [facility] CenterDxrxzrzIXQZLOQLDO0008-39-52 16:57:00 Test Item Value Reference Range Interpretation Comments Lymphocytes # (test code = Lymphocytes 3.0 1.0-5.5 #) [facility] CenterWcebgdyIXTJGFNGMG2763-55-40 16:57:00 Test Item Value Reference Range Interpretation Comments PT (test code = PT) 14.0 s 12.0-14.7 [facility] CenterIlagnzvBBGWOJZULI5462-05-09 16:57:00 Test Item Value Reference Range Interpretation Comments INR (test code = INR) 1.05 0.85-1.17 [facility] CenterSetzkrcYVGIMGVKIR0702-29-17 16:57:00 Test Item Value Reference Range Interpretation Comments PTT (test code = PTT) 30.3 s 22.9-35.8 [facility] CenterWejvdouBTUVOBCPWA7549-10-55 16:57:00 Test Item Value Reference Range Interpretation Comments MPV (test code = MPV) 8.9 7.4-10.4 [facility] CenterXxspjsaQLHXRFGJFC3374-96-84 16:57:00 Test Item Value Reference Range Interpretation Comments RDW (test code = RDW) 15.8 11.5-14.5 [facility] CenterKgpsulmRAYVTFGGEO2744-68-64 16:57:00 Test Item Value Reference Range Interpretation Comments Platelet (test code = Platelet) 271 133-450 [facility] CenterRdamsqlKCVFXLWVUS9220-77-70 16:57:00 Test Item Value Reference Range Interpretation Comments WBC (test code = WBC) 7.3 3.7-10.4 [facility] CenterFlkudwwASEZTTQMXH8063-12-94 16:57:00 Test Item Value Reference Range Interpretation Comments RBC (test code = RBC) 5.14 4.20-5.40 [facility] CenterMakhbemMBOUYBBTOO0035-91-53 16:57:00 Test Item Value Reference Range Interpretation Comments MCV (test code = MCV) 77.9 80.0-98.0 [facility] CenterXgjngbdIRYXULPTSY1818-04-33 16:57:00 Test Item Value Reference Range Interpretation Comments MCH (test code = MCH) 23.9 pg 27.0-31.0 [facility] CenterFhftmbvLTODFHTYJK2417-05-49 16:57:00 Test Item Value Reference Range Interpretation Comments MCHC (test code = MCHC) 30.7 32.0-36.0 [facility] CenterSrukebiHQAWOUJNRD7351-99-63 16:57:00 Test Item Value Reference Range Interpretation Comments Hct (test code = Hct) 40.1 36.0-48.0 [facility] CenterVlysfppSYDOQGGHVV9667-94-48 16:57:00 Test Item Value Reference Range Interpretation Comments Hgb (test code = Hgb) 12.3 12.0-16.0 [facility]2015-12-28 16:57:00 Test Item Value Reference Range Interpretation Comments eGFR (test code = eGFR) 86 [facility]2015-12-28 16:57:00 Test Item Value Reference Range Interpretation Comments Potassium Lvl (test code = Potassium 3.6 3.5-5.1 Lvl) [facility]2015-12-28 16:57:00 Test Item Value Reference Range Interpretation Comments CO2 (test code = CO2) 27 24-32 [facility]2015-12-28 16:57:00 Test Item Value Reference Range Interpretation Comments Chloride Lvl (test code = Chloride Lvl) 103 95-109 [facility]2015-12-28 16:57:00 Test Item Value Reference Range Interpretation Comments Calcium Lvl (test code = Calcium Lvl) 9.4 8.5-10.5 [facility]2015-12-28 16:57:00 Test Item Value Reference Range Interpretation Comments AST (test code = AST) 16 See_Comment [Auto mated message] The system which ge nerated this result transmit arvind reference range : <=37. The reference range was not used to interpr et this result as mario l/abnormal. [facility]2015-12-28 16:57:00 Test Item Value Reference Range Interpretation Comments ALT (test code = ALT) 43 See_Comment [Auto mated message] The system which ge nerated this result transmit arvind reference range : <=65. The reference range was not used to interpr et this result as mario l/abnormal. [facility]2015-12-28 16:57:00 Test Item Value Reference Range Interpretation Comments Alk Phos (test code = Alk Phos) 97 39-136 [facility]2015-12-28 16:57:00 Test Item Value Reference Range Interpretation Comments Albumin Lvl (test code = Albumin Lvl) 3.6 3.5-5.0 [facility]2015-12-28 16:57:00 Test Item Value Reference Range Interpretation Comments Total Protein (test code = Total 7.3 6.4-8.4 Protein) [facility]2015-12-28 16:57:00 Test Item Value Reference Range Interpretation Comments Bili Total (test code = Bili Total) 0.4 0.2-1.3 [facility]2015-12-28 16:57:00 Test Item Value Reference Range Interpretation Comments Glucose Lvl (test code = Glucose Lvl) 95 70-99 [facility]2015-12-28 16:57:00 Test Item Value Reference Range Interpretation Comments Creatinine Lvl (test code = Creatinine 0.93 0.50-1.40 Lvl) [facility]2015-12-28 16:57:00 Test Item Value Reference Range Interpretation Comments BUN (test code = BUN) 9 7-22 [facility]2015-12-28 16:57:00 Test Item Value Reference Range Interpretation Comments Sodium Lvl (test code = Sodium Lvl) 139 135-145 [facility]2015-12-28 16:57:00 Test Item Value Reference Range Interpretation Comments A/G Ratio (test code = A/G Ratio) 1.0 0.7-1.6 [facility]2015-12-28 16:57:00 Test Item Value Reference Range Interpretation Comments Globulin (test code = Globulin) 3.7 2.0-4.0 [facility]2015-12-28 16:57:00 Test Item Value Reference Range Interpretation Comments B/C Ratio (test code = B/C Ratio) 10 - [facility]2015-12-28 16:57:00 Test Item Value Reference Range Interpretation Comments AGAP (test code = AGAP) 12.6 10.0-20.0 [place] [id number] 16:57:00 Test Item Value Reference Range Interpretation Comments S Preg (test code = S Negative *NA*(08/26/15 Preg) 10:57 AM) [facility] CenterJzhhffcMCJFHUFVHH7584-00-55 16:57:00 Test Item Value Reference Range Interpretation Comments Eosinophils # (test code 0.4 See_Comment [A utomated message] The = Eosinophils #) system whic h generated this result tra nsmitted reference range : <=0.5. The reference r kat was not used to int erpret this result as normal/abnormal . [facility] CenterLmcijsyZTMNBZLTXV9922-71-47 16:57:00 Test Item Value Reference Range Interpretation Comments Microcyte (test code = 1+ *ABN*(08/26/15 Microcyte) 10:57 AM) [facility] CenterQbwxdusMSAXSOHAGK5504-43-00 16:57:00 Test Item Value Reference Range Interpretation Comments Basophils # (test code 0.1 See_Comment [Aut omated message] The = Basophils #) system which generated this result tra nsmitted reference range : <=0.2. The reference r kat was not used to int erpret this result as normal/abnormal . [facility] CenterPugileiDPFLZYDNMA5353-16-22 16:57:00 Test Item Value Reference Range Interpretation Comments Monocytes (test code = Monocytes) 8.6 2.0-12.0 [facility] CenterLxwreirJKSLLHBAPP1629-82-61 16:57:00 Test Item Value Reference Range Interpretation Comments Lymphocytes (test code = Lymphocytes) 40.6 20.0-40.0 [facility] CenterNjzzbiyAQEKQXCQAZ1663-48-54 16:57:00 Test Item Value Reference Range Interpretation Comments Eosinophils (test code = 5.0 See_Comment [A utomated message] The Eosinophils) system which ge nerated this result tra nsmitted reference range : <=4.0. The reference r kat was not used to int erpret this result as normal/abnormal . [facility] CenterPeueqwfJTFNHIZQPK4828-15-04 16:57:00 Test Item Value Reference Range Interpretation Comments Segs (test code = Segs) 44.8 45.0-75.0 [facility] CenterBdwztyiNIYXKMAPIU3357-76-16 16:57:00 Test Item Value Reference Range Interpretation Comments Basophils (test code = 1.0 See_Comment [Aut omated message] The Basophils) system which ge nerated this result tra nsmitted reference range : <=1.0. The reference r kat was not used to int erpret this result as normal/abnormal . [facility] CenterAztfvmdWGWHQUBZTE6189-66-93 16:57:00 Test Item Value Reference Range Interpretation Comments Segs-Bands # (test code = Segs-Bands #) 3.3 1.5-8.1 [facility] CenterDjzclkbLKWOIXEESE9124-24-91 16:57:00 Test Item Value Reference Range Interpretation Comments Monocytes # (test code 0.6 See_Comment [Aut omated message] The = Monocytes #) system which generated this result tra nsmitted reference range : <=0.8. The reference r kat was not used to int erpret this result as normal/abnormal . [facility] CenterCqwwqnoSWRRQBAJER3022-78-65 16:57:00 Test Item Value Reference Range Interpretation Comments Lymphocytes # (test code = Lymphocytes 3.0 1.0-5.5 #) [facility] CenterIcsxoecXOXVKFMBKI4564-86-28 16:57:00 Test Item Value Reference Range Interpretation Comments PT (test code = PT) 14.0 s 12.0-14.7 [facility] CenterGzypireIWDERFUWHD1404-99-83 16:57:00 Test Item Value Reference Range Interpretation Comments INR (test code = INR) 1.05 0.85-1.17 [facility] CenterIfvmcinSTRHUAQZME0565-44-51 16:57:00 Test Item Value Reference Range Interpretation Comments PTT (test code = PTT) 30.3 s 22.9-35.8 [facility] CenterAaxzrrkMWPWGLMQND1033-66-88 16:57:00 Test Item Value Reference Range Interpretation Comments MPV (test code = MPV) 8.9 7.4-10.4 [facility] CenterFfjojpyOKPNSUTMTG5011-50-91 16:57:00 Test Item Value Reference Range Interpretation Comments RDW (test code = RDW) 15.8 11.5-14.5 [facility] CenterHhwzgfhKIRMRQZSUM7788-00-18 16:57:00 Test Item Value Reference Range Interpretation Comments Platelet (test code = Platelet) 271 133-450 [facility] CenterBrxzapfEOIYTAVXSX7967-28-87 16:57:00 Test Item Value Reference Range Interpretation Comments WBC (test code = WBC) 7.3 3.7-10.4 [facility] CenterJymsucaQMCLKLUSZX3571-14-29 16:57:00 Test Item Value Reference Range Interpretation Comments RBC (test code = RBC) 5.14 4.20-5.40 [facility] CenterEezjdbyIRJVUVFKAN8253-24-90 16:57:00 Test Item Value Reference Range Interpretation Comments MCV (test code = MCV) 77.9 80.0-98.0 [facility] CenterFlunaodXRNGBSHLWO7926-23-81 16:57:00 Test Item Value Reference Range Interpretation Comments MCH (test code = MCH) 23.9 pg 27.0-31.0 [facility] CenterDhpzpvsKRSNBRFPUK4344-27-11 16:57:00 Test Item Value Reference Range Interpretation Comments MCHC (test code = MCHC) 30.7 32.0-36.0 [facility] CenterZwaxekaSMFTWYPHED7397-05-90 16:57:00 Test Item Value Reference Range Interpretation Comments Hct (test code = Hct) 40.1 36.0-48.0 [facility] CenterFstyudzRGCJAWWEDS7770-99-10 16:57:00 Test Item Value Reference Range Interpretation Comments Hgb (test code = Hgb) 12.3 12.0-16.0 [facility]2015-12-28 16:57:00 Test Item Value Reference Range Interpretation Comments eGFR (test code = eGFR) 86 [facility] XZHKA6042-63-63 16:57:00 Test Item Value Reference Range Interpretation Comments Potassium Lvl (test code = Potassium 3.6 3.5-5.1 Lvl) [facility]2015-12-28 16:57:00 Test Item Value Reference Range Interpretation Comments CO2 (test code = CO2) 27 24-32 [facility]2015-12-28 16:57:00 Test Item Value Reference Range Interpretation Comments Chloride Lvl (test code = Chloride Lvl) 103 95-109 [facility]2015-12-28 16:57:00 Test Item Value Reference Range Interpretation Comments Calcium Lvl (test code = Calcium Lvl) 9.4 8.5-10.5 [facility]2015-12-28 16:57:00 Test Item Value Reference Range Interpretation Comments AST (test code = AST) 16 See_Comment [Auto mated message] The system which ge nerated this result transmit arvind reference range : <=37. The reference range was not used to interpr et this result as mario l/abnormal. [facility]2015-12-28 16:57:00 Test Item Value Reference Range Interpretation Comments ALT (test code = ALT) 43 See_Comment [Auto mated message] The system which ge nerated this result transmit arvind reference range : <=65. The reference range was not used to interpr et this result as mario l/abnormal. [facility]2015-12-28 16:57:00 Test Item Value Reference Range Interpretation Comments Alk Phos (test code = Alk Phos) 97 39-136 [facility]2015-12-28 16:57:00 Test Item Value Reference Range Interpretation Comments Albumin Lvl (test code = Albumin Lvl) 3.6 3.5-5.0 [facility]2015-12-28 16:57:00 Test Item Value Reference Range Interpretation Comments Total Protein (test code = Total 7.3 6.4-8.4 Protein) [facility]2015-12-28 16:57:00 Test Item Value Reference Range Interpretation Comments Bili Total (test code = Bili Total) 0.4 0.2-1.3 [facility]2015-12-28 16:57:00 Test Item Value Reference Range Interpretation Comments Glucose Lvl (test code = Glucose Lvl) 95 70-99 [place] 610125-12-28 16:57:00 Test Item Value Reference Range Interpretation Comments Creatinine Lvl (test code = Creatinine 0.93 0.50-1.40 Lvl) [facility]2015-12-28 16:57:00 Test Item Value Reference Range Interpretation Comments BUN (test code = BUN) 9 7- [facility]2015-12-28 16:57:00 Test Item Value Reference Range Interpretation Comments Sodium Lvl (test code = Sodium Lvl) 139 135-145 [facility]2015-12-28 16:57:00 Test Item Value Reference Range Interpretation Comments A/G Ratio (test code = A/G Ratio) 1.0 0.7-1.6 [facility]2015-12-28 16:57:00 Test Item Value Reference Range Interpretation Comments Globulin (test code = Globulin) 3.7 2.0-4.0 [facility]2015-12-28 16:57:00 Test Item Value Reference Range Interpretation Comments B/C Ratio (test code = B/C Ratio) 10 - [facility]2015-12-28 16:57:00 Test Item Value Reference Range Interpretation Comments AGAP (test code = AGAP) 12.6 10.0-20.0 [place] [id number] 16:57:00 Test Item Value Reference Range Interpretation Comments S Preg (test code = S Negative *NA*(08/26/15 Preg) 10:57 AM) [facility] CenterGhekgjlIXWQWQCFLR8669-82-43 16:57:00 Test Item Value Reference Range Interpretation Comments Eosinophils # (test code 0.4 See_Comment [A utomated message] The = Eosinophils #) system whic h generated this result tra nsmitted reference range : <=0.5. The reference r kat was not used to int erpret this result as normal/abnormal . [facility] CenterFxxwonjBOQGFGJXND5725-18-05 16:57:00 Test Item Value Reference Range Interpretation Comments Microcyte (test code = 1+ *ABN*(08/26/15 Microcyte) 10:57 AM) [facility] CenterEhtzdgbUPPODMACBN7989-29-66 16:57:00 Test Item Value Reference Range Interpretation Comments Basophils # (test code 0.1 See_Comment [Aut omated message] The = Basophils #) system which generated this result tra nsmitted reference range : <=0.2. The reference r kat was not used to int erpret this result as normal/abnormal . [facility] CenterNtgnhssZYIALRIJIL6282-86-44 16:57:00 Test Item Value Reference Range Interpretation Comments Monocytes (test code = Monocytes) 8.6 2.0-12.0 [facility] CenterGqzrbqlHRZCJZZSKW3847-79-71 16:57:00 Test Item Value Reference Range Interpretation Comments Lymphocytes (test code = Lymphocytes) 40.6 20.0-40.0 [facility] CenterNiddalsCVKGSMRYMJ5683-61-16 16:57:00 Test Item Value Reference Range Interpretation Comments Eosinophils (test code = 5.0 See_Comment [A utomated message] The Eosinophils) system which ge nerated this result tra nsmitted reference range : <=4.0. The reference r kat was not used to int erpret this result as normal/abnormal . [facility] CenterGepnyplDAEZFIDDHQ3288-59-82 16:57:00 Test Item Value Reference Range Interpretation Comments Segs (test code = Segs) 44.8 45.0-75.0 [facility] CenterYccleanOAAVRBZTLA6573-84-86 16:57:00 Test Item Value Reference Range Interpretation Comments Basophils (test code = 1.0 See_Comment [Aut omated message] The Basophils) system which ge nerated this result tra nsmitted reference range : <=1.0. The reference r kat was not used to int erpret this result as normal/abnormal . [facility] CenterQxtyivuRGTTUBZITR3037-09-00 16:57:00 Test Item Value Reference Range Interpretation Comments Segs-Bands # (test code = Segs-Bands #) 3.3 1.5-8.1 [facility] CenterNcjeukrKMPUIEPUUB9144-07-71 16:57:00 Test Item Value Reference Range Interpretation Comments Monocytes # (test code 0.6 See_Comment [Aut omated message] The = Monocytes #) system which generated this result tra nsmitted reference range : <=0.8. The reference r kat was not used to int erpret this result as normal/abnormal . [facility] CenterIoxkdbhVTPOEQZHKQ2751-25-70 16:57:00 Test Item Value Reference Range Interpretation Comments Lymphocytes # (test code = Lymphocytes 3.0 1.0-5.5 #) [facility] CenterSwozojyAVWKIXWPMA5740-21-30 16:57:00 Test Item Value Reference Range Interpretation Comments PT (test code = PT) 14.0 s 12.0-14.7 [facility] CenterOfiqqblWVEKAWJLHC6894-84-38 16:57:00 Test Item Value Reference Range Interpretation Comments INR (test code = INR) 1.05 0.85-1.17 [place] [address]-12-28 16:57:00 Test Item Value Reference Range Interpretation Comments PTT (test code = PTT) 30.3 s 22.9-35.8 [place] 845915-12-28 16:57:00 Test Item Value Reference Range Interpretation Comments MPV (test code = MPV) 8.9 7.4-10.4 [place] 845915-12-28 16:57:00 Test Item Value Reference Range Interpretation Comments RDW (test code = RDW) 15.8 11.5-14.5 [facility] CenterOhfkbcyIARUSGDKKT8546-65-10 16:57:00 Test Item Value Reference Range Interpretation Comments Platelet (test code = Platelet) 271 937-450 [facility] CenterBhrhymjIMAGIVGDHS0918-49-73 16:57:00 Test Item Value Reference Range Interpretation Comments WBC (test code = WBC) 7.3 3.7-10.4 [facility] CenterBmmcjluFFHKDGVIZP7530-55-56 16:57:00 Test Item Value Reference Range Interpretation Comments RBC (test code = RBC) 5.14 4.20-5.40 [facility] CenterWmhbasqQTRAGHWUWZ6887-49-98 16:57:00 Test Item Value Reference Range Interpretation Comments MCV (test code = MCV) 77.9 80.0-98.0 [facility] CenterSnlnojkKKEQBTIDIK1237-61-24 16:57:00 Test Item Value Reference Range Interpretation Comments MCH (test code = MCH) 23.9 pg 27.0-31.0 [facility] CenterBhohgyxOUZYRCJNGC9808-56-09 16:57:00 Test Item Value Reference Range Interpretation Comments MCHC (test code = MCHC) 30.7 32.0-36.0 [place] 845915-12-28 16:57:00 Test Item Value Reference Range Interpretation Comments Hct (test code = Hct) 40.1 36.0-48.0 [facility] CenterHvngvglFUVEVEBTJX2672-41-09 16:57:00 Test Item Value Reference Range Interpretation Comments Hgb (test code = Hgb) 12.3 12.0-16.0 [facility]2015-12-28 16:57:00 Test Item Value Reference Range Interpretation Comments eGFR (test code = eGFR) 86 [facility]2015-12-28 16:57:00 Test Item Value Reference Range Interpretation Comments Potassium Lvl (test code = Potassium 3.6 3.5-5.1 Lvl) [facility]2015-12-28 16:57:00 Test Item Value Reference Range Interpretation Comments CO2 (test code = CO2) 27 24-32 [facility]2015-12-28 16:57:00 Test Item Value Reference Range Interpretation Comments Chloride Lvl (test code = Chloride Lvl) 103 95-109 [facility]2015-12-28 16:57:00 Test Item Value Reference Range Interpretation Comments Calcium Lvl (test code = Calcium Lvl) 9.4 8.5-10.5 [facility]2015-12-28 16:57:00 Test Item Value Reference Range Interpretation Comments AST (test code = AST) 16 See_Comment [Auto mated message] The system which ge nerated this result transmit arvind reference range : <=37. The reference range was not used to interpr et this result as mario l/abnormal. [facility]2015-12-28 16:57:00 Test Item Value Reference Range Interpretation Comments ALT (test code = ALT) 43 See_Comment [Auto mated message] The system which ge nerated this result transmit arvind reference range : <=65. The reference range was not used to interpr et this result as mario l/abnormal. [facility]2015-12-28 16:57:00 Test Item Value Reference Range Interpretation Comments Alk Phos (test code = Alk Phos) 97 39-136 [facility]2015-12-28 16:57:00 Test Item Value Reference Range Interpretation Comments Albumin Lvl (test code = Albumin Lvl) 3.6 3.5-5.0 [facility]2015-12-28 16:57:00 Test Item Value Reference Range Interpretation Comments Total Protein (test code = Total 7.3 6.4-8.4 Protein) [facility]2015-12-28 16:57:00 Test Item Value Reference Range Interpretation Comments Bili Total (test code = Bili Total) 0.4 0.2-1.3 [facility]2015-12-28 16:57:00 Test Item Value Reference Range Interpretation Comments Glucose Lvl (test code = Glucose Lvl) 95 70-99 [facility]2015-12-28 16:57:00 Test Item Value Reference Range Interpretation Comments Creatinine Lvl (test code = Creatinine 0.93 0.50-1.40 Lvl) [facility]2015-12-28 16:57:00 Test Item Value Reference Range Interpretation Comments BUN (test code = BUN) 9 7-22 [facility]2015-12-28 16:57:00 Test Item Value Reference Range Interpretation Comments Sodium Lvl (test code = Sodium Lvl) 139 135-145 [facility]2015-12-28 16:57:00 Test Item Value Reference Range Interpretation Comments A/G Ratio (test code = A/G Ratio) 1.0 0.7-1.6 [facility]2015-12-28 16:57:00 Test Item Value Reference Range Interpretation Comments Globulin (test code = Globulin) 3.7 2.0-4.0 [facility]2015-12-28 16:57:00 Test Item Value Reference Range Interpretation Comments B/C Ratio (test code = B/C Ratio) 10 6-25 [facility]2015-12-28 16:57:00 Test Item Value Reference Range Interpretation Comments AGAP (test code = AGAP) 12.6 10.0-20.0 [facility] 16:57:00 Test Item Value Reference Range Interpretation Comments S Preg (test code = S Negative *NA*(08/26/15 Preg) 10:57 AM) [facility] CenterFgpblxzYPJXGTQPZS1635-52-49 16:57:00 Test Item Value Reference Range Interpretation Comments Eosinophils # (test code 0.4 See_Comment [A utomated message] The = Eosinophils #) system whic h generated this result tra nsmitted reference range : <=0.5. The reference r kat was not used to int erpret this result as normal/abnormal . [facility] CenterXpfscgiXZFKHXPNCE4182-30-40 16:57:00 Test Item Value Reference Range Interpretation Comments Microcyte (test code = 1+ *ABN*(08/26/15 Microcyte) 10:57 AM) [facility] CenterIgjrwgyRRFJBPHUMH1532-91-18 16:57:00 Test Item Value Reference Range Interpretation Comments Basophils # (test code 0.1 See_Comment [Aut omated message] The = Basophils #) system which generated this result tra nsmitted reference range : <=0.2. The reference r kat was not used to int erpret this result as normal/abnormal . [facility] CenterSpebsaoVZWKQBYQYB7170-10-57 16:57:00 Test Item Value Reference Range Interpretation Comments Monocytes (test code = Monocytes) 8.6 2.0-12.0 [facility] CenterTeyyoflNTYIWDQLFQ6058-74-13 16:57:00 Test Item Value Reference Range Interpretation Comments Lymphocytes (test code = Lymphocytes) 40.6 20.0-40.0 [facility] CenterXihhnoiQKLULYOTBZ4088-18-76 16:57:00 Test Item Value Reference Range Interpretation Comments Eosinophils (test code = 5.0 See_Comment [A utomated message] The Eosinophils) system which ge nerated this result tra nsmitted reference range : <=4.0. The reference r kat was not used to int erpret this result as normal/abnormal . [facility] CenterJslzbejRETQSQDQMA4271-66-93 16:57:00 Test Item Value Reference Range Interpretation Comments Segs (test code = Segs) 44.8 45.0-75.0 [facility] CenterCbcjrhaWYRAUBFUYC8427-51-61 16:57:00 Test Item Value Reference Range Interpretation Comments Basophils (test code = 1.0 See_Comment [Aut omated message] The Basophils) system which ge nerated this result tra nsmitted reference range : <=1.0. The reference r kat was not used to int erpret this result as normal/abnormal . [facility] CenterIrnzgmyHYVJSOOJTD7204-00-00 16:57:00 Test Item Value Reference Range Interpretation Comments Segs-Bands # (test code = Segs-Bands #) 3.3 1.5-8.1 [facility] CenterQtodkzcYQIWYGGTAW3625-57-76 16:57:00 Test Item Value Reference Range Interpretation Comments Monocytes # (test code 0.6 See_Comment [Aut omated message] The = Monocytes #) system which generated this result tra nsmitted reference range : <=0.8. The reference r kat was not used to int erpret this result as normal/abnormal . [facility] CenterRqhpqaxSFDDFQFAXH9761-19-56 16:57:00 Test Item Value Reference Range Interpretation Comments Lymphocytes # (test code = Lymphocytes 3.0 1.0-5.5 #) [facility] CenterPhrbgxyMSRCUOAMSB2160-58-16 16:57:00 Test Item Value Reference Range Interpretation Comments PT (test code = PT) 14.0 s 12.0-14.7 [facility] CenterVrixkfvSKAINXSDOR0371-82-24 16:57:00 Test Item Value Reference Range Interpretation Comments INR (test code = INR) 1.05 0.85-1.17 [facility] CenterCpwueqzWUEVVLIXRQ3154-12-27 16:57:00 Test Item Value Reference Range Interpretation Comments PTT (test code = PTT) 30.3 s 22.9-35.8 [facility] CenterRkyevfaKHYVJEVFFD2618-83-95 16:57:00 Test Item Value Reference Range Interpretation Comments MPV (test code = MPV) 8.9 7.4-10.4 [facility] CenterEbafpmrVBVRWKPDSP4685-70-05 16:57:00 Test Item Value Reference Range Interpretation Comments RDW (test code = RDW) 15.8 11.5-14.5 [facility] CenterMaetwohUQGTSNYLNL5753-87-17 16:57:00 Test Item Value Reference Range Interpretation Comments Platelet (test code = Platelet) 271 133-450 [facility] CenterXflxvzdZDUMATVLUY9740-77-21 16:57:00 Test Item Value Reference Range Interpretation Comments WBC (test code = WBC) 7.3 3.7-10.4 [facility] CenterWacolegOIPEOWYWFE3457-27-61 16:57:00 Test Item Value Reference Range Interpretation Comments RBC (test code = RBC) 5.14 4.20-5.40 [facility] CenterDwozdxoNRFCZXIYUE2386-91-86 16:57:00 Test Item Value Reference Range Interpretation Comments MCV (test code = MCV) 77.9 80.0-98.0 [facility] CenterNawdeqjJKVBRYFTOX5242-35-81 16:57:00 Test Item Value Reference Range Interpretation Comments MCH (test code = MCH) 23.9 pg 27.0-31.0 [facility] CenterSjcluqiVHAJQIJZNC5449-27-77 16:57:00 Test Item Value Reference Range Interpretation Comments MCHC (test code = MCHC) 30.7 32.0-36.0 [facility] CenterDfymgfrHRBBJSYJTG3455-96-02 16:57:00 Test Item Value Reference Range Interpretation Comments Hct (test code = Hct) 40.1 36.0-48.0 [facility] CenterHobaebiXZMSJEMWEG4808-03-01 16:57:00 Test Item Value Reference Range Interpretation Comments Hgb (test code = Hgb) 12.3 12.0-16.0 [facility]2015-12-28 16:57:00 Test Item Value Reference Range Interpretation Comments eGFR (test code = eGFR) 86 [facility]2015-12-28 16:57:00 Test Item Value Reference Range Interpretation Comments Potassium Lvl (test code = Potassium 3.6 3.5-5.1 Lvl) [facility]2015-12-28 16:57:00 Test Item Value Reference Range Interpretation Comments CO2 (test code = CO2) 27 24-32 [facility]2015-12-28 16:57:00 Test Item Value Reference Range Interpretation Comments Chloride Lvl (test code = Chloride Lvl) 103 95-109 [facility]2015-12-28 16:57:00 Test Item Value Reference Range Interpretation Comments Calcium Lvl (test code = Calcium Lvl) 9.4 8.5-10.5 [facility]2015-12-28 16:57:00 Test Item Value Reference Range Interpretation Comments AST (test code = AST) 16 See_Comment [Auto mated message] The system which ge nerated this result transmit arvind reference range : <=37. The reference range was not used to interpr et this result as mario l/abnormal. [facility]2015-12-28 16:57:00 Test Item Value Reference Range Interpretation Comments ALT (test code = ALT) 43 See_Comment [Auto mated message] The system which ge nerated this result transmit arvind reference range : <=65. The reference range was not used to interpr et this result as mario l/abnormal. [facility]2015-12-28 16:57:00 Test Item Value Reference Range Interpretation Comments Alk Phos (test code = Alk Phos) 97 39-136 [facility]2015-12-28 16:57:00 Test Item Value Reference Range Interpretation Comments Albumin Lvl (test code = Albumin Lvl) 3.6 3.5-5.0 [facility]2015-12-28 16:57:00 Test Item Value Reference Range Interpretation Comments Total Protein (test code = Total 7.3 6.4-8.4 Protein) [facility]2015-12-28 16:57:00 Test Item Value Reference Range Interpretation Comments Bili Total (test code = Bili Total) 0.4 0.2-1.3 [facility]2015-12-28 16:57:00 Test Item Value Reference Range Interpretation Comments Glucose Lvl (test code = Glucose Lvl) 95 70-99 [facility]2015-12-28 16:57:00 Test Item Value Reference Range Interpretation Comments Creatinine Lvl (test code = Creatinine 0.93 0.50-1.40 Lvl) [facility]2015-12-28 16:57:00 Test Item Value Reference Range Interpretation Comments BUN (test code = BUN) 9 03-20 [facility]2015-12-28 16:57:00 Test Item Value Reference Range Interpretation Comments Sodium Lvl (test code = Sodium Lvl) 139 135-145 [facility]2015-12-28 16:57:00 Test Item Value Reference Range Interpretation Comments A/G Ratio (test code = A/G Ratio) 1.0 0.7-1.6 [facility]2015-12-28 16:57:00 Test Item Value Reference Range Interpretation Comments Globulin (test code = Globulin) 3.7 2.0-4.0 [facility]2015-12-28 16:57:00 Test Item Value Reference Range Interpretation Comments B/C Ratio (test code = B/C Ratio) 10 - [facility]2015-12-28 16:57:00 Test Item Value Reference Range Interpretation Comments AGAP (test code = AGAP) 12.6 10.0-20.0 [place] [id number] 16:57:00 Test Item Value Reference Range Interpretation Comments S Preg (test code = S Negative *NA*(08/26/15 Preg) 10:57 AM) [facility] CenterOuarcivWJQEUXHSIW3845-61-89 16:57:00 Test Item Value Reference Range Interpretation Comments Eosinophils # (test code 0.4 See_Comment [A utomated message] The = Eosinophils #) system whic h generated this result tra nsmitted reference range : <=0.5. The reference r kat was not used to int erpret this result as normal/abnormal . [facility] CenterJyogipnWOLPRMTAED9356-14-77 16:57:00 Test Item Value Reference Range Interpretation Comments Microcyte (test code = 1+ *ABN*(08/26/15 Microcyte) 10:57 AM) [facility] CenterFnvljojOYEKIUROOJ2708-07-98 16:57:00 Test Item Value Reference Range Interpretation Comments Basophils # (test code 0.1 See_Comment [Aut omated message] The = Basophils #) system which generated this result tra nsmitted reference range : <=0.2. The reference r kat was not used to int erpret this result as normal/abnormal . [facility] CenterUgkbtbvIGGWJJTJJR1600-13-85 16:57:00 Test Item Value Reference Range Interpretation Comments Monocytes (test code = Monocytes) 8.6 2.0-12.0 [facility] CenterXrfiztrDBHYCHYUII8750-04-53 16:57:00 Test Item Value Reference Range Interpretation Comments Lymphocytes (test code = Lymphocytes) 40.6 20.0-40.0 [facility] CenterXmvdrhbFWEABJBBDL5084-88-95 16:57:00 Test Item Value Reference Range Interpretation Comments Eosinophils (test code = 5.0 See_Comment [A utomated message] The Eosinophils) system which ge nerated this result tra nsmitted reference range : <=4.0. The reference r kat was not used to int erpret this result as normal/abnormal . [facility] CenterAciljkfOYRPZQNZVN6973-28-31 16:57:00 Test Item Value Reference Range Interpretation Comments Segs (test code = Segs) 44.8 45.0-75.0 [facility] CenterIbpypstPUGJLSSCIG6918-22-23 16:57:00 Test Item Value Reference Range Interpretation Comments Basophils (test code = 1.0 See_Comment [Aut omated message] The Basophils) system which ge nerated this result tra nsmitted reference range : <=1.0. The reference r kat was not used to int erpret this result as normal/abnormal . [facility] CenterKwynxntXASTWPZLSF6109-73-00 16:57:00 Test Item Value Reference Range Interpretation Comments Segs-Bands # (test code = Segs-Bands #) 3.3 1.5-8.1 [facility] CenterJwecpsxIZFNUXBMLC6171-33-63 16:57:00 Test Item Value Reference Range Interpretation Comments Monocytes # (test code 0.6 See_Comment [Aut omated message] The = Monocytes #) system which generated this result tra nsmitted reference range : <=0.8. The reference r kat was not used to int erpret this result as normal/abnormal . [facility] CenterZiydmukONMDUEYRNP0598-47-03 16:57:00 Test Item Value Reference Range Interpretation Comments Lymphocytes # (test code = Lymphocytes 3.0 1.0-5.5 #) [facility] CenterBnpcluwRXTORTDBWP1954-88-28 16:57:00 Test Item Value Reference Range Interpretation Comments PT (test code = PT) 14.0 s 12.0-14.7 [facility] CenterKloxunoDJBSZYRSXB0902-95-28 16:57:00 Test Item Value Reference Range Interpretation Comments INR (test code = INR) 1.05 0.85-1.17 [facility] CenterWrjumlpMNRAGANTJP4845-89-74 16:57:00 Test Item Value Reference Range Interpretation Comments PTT (test code = PTT) 30.3 s 22.9-35.8 [facility] CenterFvynbspSWKQLMTARU0695-89-06 16:57:00 Test Item Value Reference Range Interpretation Comments MPV (test code = MPV) 8.9 7.4-10.4 [facility] CenterKugqlwxKCJKKFVYRX1115-09-25 16:57:00 Test Item Value Reference Range Interpretation Comments RDW (test code = RDW) 15.8 11.5-14.5 [facility] CenterEjbpnmiBONJGNXZRO4478-66-55 16:57:00 Test Item Value Reference Range Interpretation Comments Platelet (test code = Platelet) 271 133-450 [facility] CenterWstgmidTXLPWMKLBG6181-88-19 16:57:00 Test Item Value Reference Range Interpretation Comments WBC (test code = WBC) 7.3 3.7-10.4 [facility] CenterSjfonvvETMNBDYSON2287-44-89 16:57:00 Test Item Value Reference Range Interpretation Comments RBC (test code = RBC) 5.14 4.20-5.40 [facility] CenterUnmwwjeGCWGGOVXMA1121-30-51 16:57:00 Test Item Value Reference Range Interpretation Comments MCV (test code = MCV) 77.9 80.0-98.0 [facility] CenterWncwrtwSZEXXEDJLI3901-09-34 16:57:00 Test Item Value Reference Range Interpretation Comments MCH (test code = MCH) 23.9 pg 27.0-31.0 [facility] CenterVyewoosBRYIVIXXBH0603-59-73 16:57:00 Test Item Value Reference Range Interpretation Comments MCHC (test code = MCHC) 30.7 32.0-36.0 [facility] CenterBbiuyzpLZYIRZYSQI1133-88-85 16:57:00 Test Item Value Reference Range Interpretation Comments Hct (test code = Hct) 40.1 36.0-48.0 [facility] CenterMcrjgfrBAAEGPXVPM0687-63-53 16:57:00 Test Item Value Reference Range Interpretation Comments Hgb (test code = Hgb) 12.3 12.0-16.0 [facility]2015-12-28 16:57:00 Test Item Value Reference Range Interpretation Comments eGFR (test code = eGFR) 86 [facility]2015-12-28 16:57:00 Test Item Value Reference Range Interpretation Comments Potassium Lvl (test code = Potassium 3.6 3.5-5.1 Lvl) [facility]2015-12-28 16:57:00 Test Item Value Reference Range Interpretation Comments CO2 (test code = CO2) 27 24-32 [facility]2015-12-28 16:57:00 Test Item Value Reference Range Interpretation Comments Chloride Lvl (test code = Chloride Lvl) 103 95-109 [facility]2015-12-28 16:57:00 Test Item Value Reference Range Interpretation Comments Calcium Lvl (test code = Calcium Lvl) 9.4 8.5-10.5 [facility]2015-12-28 16:57:00 Test Item Value Reference Range Interpretation Comments AST (test code = AST) 16 See_Comment [Auto mated message] The system which ge nerated this result transmit arvind reference range : <=37. The reference range was not used to interpr et this result as mario l/abnormal. [facility]2015-12-28 16:57:00 Test Item Value Reference Range Interpretation Comments ALT (test code = ALT) 43 See_Comment [Auto mated message] The system which ge nerated this result transmit arvind reference range : <=65. The reference range was not used to interpr et this result as mario l/abnormal. [facility]2015-12-28 16:57:00 Test Item Value Reference Range Interpretation Comments Alk Phos (test code = Alk Phos) 97 39-136 [facility]2015-12-28 16:57:00 Test Item Value Reference Range Interpretation Comments Albumin Lvl (test code = Albumin Lvl) 3.6 3.5-5.0 [facility]2015-12-28 16:57:00 Test Item Value Reference Range Interpretation Comments Total Protein (test code = Total 7.3 6.4-8.4 Protein) [facility]2015-12-28 16:57:00 Test Item Value Reference Range Interpretation Comments Bili Total (test code = Bili Total) 0.4 0.2-1.3 [facility]2015-12-28 16:57:00 Test Item Value Reference Range Interpretation Comments Glucose Lvl (test code = Glucose Lvl) 95 70-99 [facility]2015-12-28 16:57:00 Test Item Value Reference Range Interpretation Comments Creatinine Lvl (test code = Creatinine 0.93 0.50-1.40 Lvl) [facility]2015-12-28 16:57:00 Test Item Value Reference Range Interpretation Comments BUN (test code = BUN) 9 7-22 [facility]2015-12-28 16:57:00 Test Item Value Reference Range Interpretation Comments Sodium Lvl (test code = Sodium Lvl) 139 135-145 [facility]2015-12-28 16:57:00 Test Item Value Reference Range Interpretation Comments A/G Ratio (test code = A/G Ratio) 1.0 0.7-1.6 [facility]2015-12-28 16:57:00 Test Item Value Reference Range Interpretation Comments Globulin (test code = Globulin) 3.7 2.0-4.0 [facility]2015-12-28 16:57:00 Test Item Value Reference Range Interpretation Comments B/C Ratio (test code = B/C Ratio) 10 6-25 [facility]2015-12-28 16:57:00 Test Item Value Reference Range Interpretation Comments AGAP (test code = AGAP) 12.6 10.0-20.0 [facility]AYLM2908[facility]75-71 16:57:00 Test Item Value Reference Range Interpretation Comments S Preg (test code = S Negative *NA*(08/26/15 Preg) 10:57 AM) [facility] CenterPaljvwoWJOBJQTDZT6829-90-51 16:57:00 Test Item Value Reference Range Interpretation Comments Eosinophils # (test code 0.4 See_Comment [A utomated message] The = Eosinophils #) system whic h generated this result tra nsmitted reference range : <=0.5. The reference r kat was not used to int erpret this result as normal/abnormal . [facility] CenterYfpyozmPFIACYNQSG2812-69-49 16:57:00 Test Item Value Reference Range Interpretation Comments Microcyte (test code = 1+ *ABN*(08/26/15 Microcyte) 10:57 AM) [facility] CenterUejwakvYLAKWYXWGV4723-65-48 16:57:00 Test Item Value Reference Range Interpretation Comments Basophils # (test code 0.1 See_Comment [Aut omated message] The = Basophils #) system which generated this result tra nsmitted reference range : <=0.2. The reference r kat was not used to int erpret this result as normal/abnormal . [facility] CenterSoerrohTWUCXKWRKQ6962-01-97 16:57:00 Test Item Value Reference Range Interpretation Comments Monocytes (test code = Monocytes) 8.6 2.0-12.0 [facility] CenterXavimwgOMDWVBPJXT4892-76-92 16:57:00 Test Item Value Reference Range Interpretation Comments Lymphocytes (test code = Lymphocytes) 40.6 20.0-40.0 [facility] CenterYtsctbxGDFTMYYDNY1569-14-56 16:57:00 Test Item Value Reference Range Interpretation Comments Eosinophils (test code = 5.0 See_Comment [A utomated message] The Eosinophils) system which ge nerated this result tra nsmitted reference range : <=4.0. The reference r kat was not used to int erpret this result as normal/abnormal . [facility] CenterWbtuwayTXEHFPFEYX5499-46-42 16:57:00 Test Item Value Reference Range Interpretation Comments Segs (test code = Segs) 44.8 45.0-75.0 [facility] CenterJjexrzyZDCCZAOXCE3588-69-12 16:57:00 Test Item Value Reference Range Interpretation Comments Basophils (test code = 1.0 See_Comment [Aut omated message] The Basophils) system which ge nerated this result tra nsmitted reference range : <=1.0. The reference r akt was not used to int erpret this result as normal/abnormal . [facility] CenterUjgblfcETMKIUQQUO7541-25-57 16:57:00 Test Item Value Reference Range Interpretation Comments Segs-Bands # (test code = Segs-Bands #) 3.3 1.5-8.1 [facility] CenterNjznzkvGUSSLERPJY3671-43-20 16:57:00 Test Item Value Reference Range Interpretation Comments Monocytes # (test code 0.6 See_Comment [Aut omated message] The = Monocytes #) system which generated this result tra nsmitted reference range : <=0.8. The reference r kat was not used to int erpret this result as normal/abnormal . [facility] CenterUqozabbGEVYDYAPJZ7476-66-19 16:57:00 Test Item Value Reference Range Interpretation Comments Lymphocytes # (test code = Lymphocytes 3.0 1.0-5.5 #) [facility] CenterUijdimmHUBRVHTZOI5932-58-70 16:57:00 Test Item Value Reference Range Interpretation Comments PT (test code = PT) 14.0 s 12.0-14.7 [facility] CenterBghtygxPUWMZEJVAF7241-47-33 16:57:00 Test Item Value Reference Range Interpretation Comments INR (test code = INR) 1.05 0.85-1.17 [facility] CenterIaxsauzQRYBFFGUWO5604-85-73 16:57:00 Test Item Value Reference Range Interpretation Comments PTT (test code = PTT) 30.3 s 22.9-35.8 [facility] CenterKvsvavbEEREOKVRYZ4705-53-68 16:57:00 Test Item Value Reference Range Interpretation Comments MPV (test code = MPV) 8.9 7.4-10.4 [facility] CenterQkljfwwAWNNYWNQTA8081-86-88 16:57:00 Test Item Value Reference Range Interpretation Comments RDW (test code = RDW) 15.8 11.5-14.5 [facility] CenterCmiegwuOEIYMKTBXG5430-26-26 16:57:00 Test Item Value Reference Range Interpretation Comments Platelet (test code = Platelet) 271 133-450 [facility] CenterXvjpmihBZQWTTAMYY4013-90-84 16:57:00 Test Item Value Reference Range Interpretation Comments WBC (test code = WBC) 7.3 3.7-10.4 [facility] CenterTvxksflYBUWXWLSER3760-24-98 16:57:00 Test Item Value Reference Range Interpretation Comments RBC (test code = RBC) 5.14 4.20-5.40 [facility] CenterLqvicekRLWOOFWVYA8900-75-07 16:57:00 Test Item Value Reference Range Interpretation Comments MCV (test code = MCV) 77.9 80.0-98.0 [facility] CenterPsghnaaPLVTGXQYOH3331-02-65 16:57:00 Test Item Value Reference Range Interpretation Comments MCH (test code = MCH) 23.9 pg 27.0-31.0 [facility] CenterEeaqajxNPFTGJIKTS1969-43-21 16:57:00 Test Item Value Reference Range Interpretation Comments MCHC (test code = MCHC) 30.7 32.0-36.0 [facility] CenterDotnqhrIDCKCTRZRA6385-20-97 16:57:00 Test Item Value Reference Range Interpretation Comments Hct (test code = Hct) 40.1 36.0-48.0 [facility] CenterXkvojpyUQLBOTROVY3632-60-93 16:57:00 Test Item Value Reference Range Interpretation Comments Hgb (test code = Hgb) 12.3 12.0-16.0 [facility]2015-12-28 16:57:00 Test Item Value Reference Range Interpretation Comments eGFR (test code = eGFR) 86 [facility]2015-12-28 16:57:00 Test Item Value Reference Range Interpretation Comments Potassium Lvl (test code = Potassium 3.6 3.5-5.1 Lvl) [facility]2015-12-28 16:57:00 Test Item Value Reference Range Interpretation Comments CO2 (test code = CO2) 27 24-32 [facility]2015-12-28 16:57:00 Test Item Value Reference Range Interpretation Comments Chloride Lvl (test code = Chloride Lvl) 103 95-109 [facility]2015-12-28 16:57:00 Test Item Value Reference Range Interpretation Comments Calcium Lvl (test code = Calcium Lvl) 9.4 8.5-10.5 [facility]2015-12-28 16:57:00 Test Item Value Reference Range Interpretation Comments AST (test code = AST) 16 See_Comment [Auto mated message] The system which ge nerated this result transmit arvind reference range : <=37. The reference range was not used to interpr et this result as mario l/abnormal. [facility]2015-12-28 16:57:00 Test Item Value Reference Range Interpretation Comments ALT (test code = ALT) 43 See_Comment [Auto mated message] The system which ge nerated this result transmit arvind reference range : <=65. The reference range was not used to interpr et this result as mario l/abnormal. [facility]2015-12-28 16:57:00 Test Item Value Reference Range Interpretation Comments Alk Phos (test code = Alk Phos) 97 39-136 [facility]2015-12-28 16:57:00 Test Item Value Reference Range Interpretation Comments Albumin Lvl (test code = Albumin Lvl) 3.6 3.5-5.0 [facility]2015-12-28 16:57:00 Test Item Value Reference Range Interpretation Comments Total Protein (test code = Total 7.3 6.4-8.4 Protein) [facility]2015-12-28 16:57:00 Test Item Value Reference Range Interpretation Comments Bili Total (test code = Bili Total) 0.4 0.2-1.3 [facility]2015-12-28 16:57:00 Test Item Value Reference Range Interpretation Comments Glucose Lvl (test code = Glucose Lvl) 95 70-99 [facility]2015-12-28 16:57:00 Test Item Value Reference Range Interpretation Comments Creatinine Lvl (test code = Creatinine 0.93 0.50-1.40 Lvl) [facility]2015-12-28 16:57:00 Test Item Value Reference Range Interpretation Comments BUN (test code = BUN) 9 7-22 [facility]2015-12-28 16:57:00 Test Item Value Reference Range Interpretation Comments Sodium Lvl (test code = Sodium Lvl) 139 135-145 [facility]2015-12-28 16:57:00 Test Item Value Reference Range Interpretation Comments A/G Ratio (test code = A/G Ratio) 1.0 0.7-1.6 [facility]2015-12-28 16:57:00 Test Item Value Reference Range Interpretation Comments Globulin (test code = Globulin) 3.7 2.0-4.0 [facility]2015-12-28 16:57:00 Test Item Value Reference Range Interpretation Comments B/C Ratio (test code = B/C Ratio) 10 6-25 [facility]2015-12-28 16:57:00 Test Item Value Reference Range Interpretation Comments AGAP (test code = AGAP) 12.6 10.0-20.0 [facility]XsdixwnLNZNHDCGLIXKA9672-63-35 16:57:00 Test Item Value Reference Range Interpretation Comments S Preg (test code = S Negative *NA*(08/26/15 Preg) 10:57 AM) [facility] CenterRyttbpvOKQGTTXQDE5698-78-68 16:57:00 Test Item Value Reference Range Interpretation Comments Eosinophils # (test code 0.4 See_Comment [A utomated message] The = Eosinophils #) system whic h generated this result tra nsmitted reference range : <=0.5. The reference r kat was not used to int erpret this result as normal/abnormal . [facility] CenterWzgrbtkQIURMXARVZ9002-98-67 16:57:00 Test Item Value Reference Range Interpretation Comments Microcyte (test code = 1+ *ABN*(08/26/15 Microcyte) 10:57 AM) [facility] CenterLmhxtiuQSNQZZMLXG5339-41-96 16:57:00 Test Item Value Reference Range Interpretation Comments Basophils # (test code 0.1 See_Comment [Aut omated message] The = Basophils #) system which generated this result tra nsmitted reference range : <=0.2. The reference r kat was not used to int erpret this result as normal/abnormal . [facility] CenterElvksifJAKPWONOMP5389-11-06 16:57:00 Test Item Value Reference Range Interpretation Comments Monocytes (test code = Monocytes) 8.6 2.0-12.0 [facility] CenterDorbjyaMOAQZABFMD8870-05-77 16:57:00 Test Item Value Reference Range Interpretation Comments Lymphocytes (test code = Lymphocytes) 40.6 20.0-40.0 [facility] CenterQoiuqlxIFLFGSRUYT4543-82-47 16:57:00 Test Item Value Reference Range Interpretation Comments Eosinophils (test code = 5.0 See_Comment [A utomated message] The Eosinophils) system which ge nerated this result tra nsmitted reference range : <=4.0. The reference r kat was not used to int erpret this result as normal/abnormal . [facility] CenterXjtpazcXDSXKKFIKV3262-86-06 16:57:00 Test Item Value Reference Range Interpretation Comments Segs (test code = Segs) 44.8 45.0-75.0 [facility] CenterTvesjqvIIOWZYBDLH8326-72-45 16:57:00 Test Item Value Reference Range Interpretation Comments Basophils (test code = 1.0 See_Comment [Aut omated message] The Basophils) system which ge nerated this result tra nsmitted reference range : <=1.0. The reference r kat was not used to int erpret this result as normal/abnormal . [facility] CenterAcxqaudJYZPDAGXXG9138-19-60 16:57:00 Test Item Value Reference Range Interpretation Comments Segs-Bands # (test code = Segs-Bands #) 3.3 1.5-8.1 [facility] CenterMnxomdjYEHTDLZMXA6033-20-07 16:57:00 Test Item Value Reference Range Interpretation Comments Monocytes # (test code 0.6 See_Comment [Aut omated message] The = Monocytes #) system which generated this result tra nsmitted reference range : <=0.8. The reference r kat was not used to int erpret this result as normal/abnormal . [facility] CenterIrqlaofIWWLQFFJOI3793-85-77 16:57:00 Test Item Value Reference Range Interpretation Comments Lymphocytes # (test code = Lymphocytes 3.0 1.0-5.5 #) [facility] CenterNecbrxsBMSIZRVRGF4935-02-55 16:57:00 Test Item Value Reference Range Interpretation Comments PT (test code = PT) 14.0 s 12.0-14.7 [facility] CenterTeamtfhZXHJQFFFGD6114-30-67 16:57:00 Test Item Value Reference Range Interpretation Comments INR (test code = INR) 1.05 0.85-1.17 [facility] CenterDnpbskoVBDLOSIBVV7125-49-13 16:57:00 Test Item Value Reference Range Interpretation Comments PTT (test code = PTT) 30.3 s 22.9-35.8 [facility] CenterKebtpnlCDMBQLNDHI8066-54-38 16:57:00 Test Item Value Reference Range Interpretation Comments MPV (test code = MPV) 8.9 7.4-10.4 [facility] CenterWzfgmnsQVEWFDXEIA8134-16-01 16:57:00 Test Item Value Reference Range Interpretation Comments RDW (test code = RDW) 15.8 11.5-14.5 [facility] CenterLrpsoqtKNNTFCYKZS8991-39-17 16:57:00 Test Item Value Reference Range Interpretation Comments Platelet (test code = Platelet) 271 133-450 [facility] CenterVfbaxjjMPGTZQTRWR5155-15-05 16:57:00 Test Item Value Reference Range Interpretation Comments WBC (test code = WBC) 7.3 3.7-10.4 [facility] CenterMawjnisSBMHSILZBW1209-21-14 16:57:00 Test Item Value Reference Range Interpretation Comments RBC (test code = RBC) 5.14 4.20-5.40 [facility] CenterRexvaihXKKLYEWGIM3039-09-77 16:57:00 Test Item Value Reference Range Interpretation Comments MCV (test code = MCV) 77.9 80.0-98.0 [facility] CenterUvjztlrEKYXEGPBCG1510-75-51 16:57:00 Test Item Value Reference Range Interpretation Comments MCH (test code = MCH) 23.9 pg 27.0-31.0 [facility] CenterEfebmgoRYOPNFRWKC0662-75-79 16:57:00 Test Item Value Reference Range Interpretation Comments MCHC (test code = MCHC) 30.7 32.0-36.0 [facility] CenterHgpfahaJBARLNNMZG6291-44-07 16:57:00 Test Item Value Reference Range Interpretation Comments Hct (test code = Hct) 40.1 36.0-48.0 [facility] CenterRhmfmpkJGFIUYUWYC7202-13-85 16:57:00 Test Item Value Reference Range Interpretation Comments Hgb (test code = Hgb) 12.3 12.0-16.0 [facility]2015-12-28 16:57:00 Test Item Value Reference Range Interpretation Comments eGFR (test code = eGFR) 86 [facility]2015-12-28 16:57:00 Test Item Value Reference Range Interpretation Comments Potassium Lvl (test code = Potassium 3.6 3.5-5.1 Lvl) [facility]2015-12-28 16:57:00 Test Item Value Reference Range Interpretation Comments CO2 (test code = CO2) 27 24-32 [facility]2015-12-28 16:57:00 Test Item Value Reference Range Interpretation Comments Chloride Lvl (test code = Chloride Lvl) 103 95-109 [facility]2015-12-28 16:57:00 Test Item Value Reference Range Interpretation Comments Calcium Lvl (test code = Calcium Lvl) 9.4 8.5-10.5 [facility]2015-12-28 16:57:00 Test Item Value Reference Range Interpretation Comments AST (test code = AST) 16 See_Comment [Auto mated message] The system which ge nerated this result transmit arvind reference range : <=37. The reference range was not used to interpr et this result as mario l/abnormal. [facility]2015-12-28 16:57:00 Test Item Value Reference Range Interpretation Comments ALT (test code = ALT) 43 See_Comment [Auto mated message] The system which ge nerated this result transmit arvind reference range : <=65. The reference range was not used to interpr et this result as mario l/abnormal. [facility]2015-12-28 16:57:00 Test Item Value Reference Range Interpretation Comments Alk Phos (test code = Alk Phos) 97 39-136 [facility]2015-12-28 16:57:00 Test Item Value Reference Range Interpretation Comments Albumin Lvl (test code = Albumin Lvl) 3.6 3.5-5.0 [facility]2015-12-28 16:57:00 Test Item Value Reference Range Interpretation Comments Total Protein (test code = Total 7.3 6.4-8.4 Protein) [facility]2015-12-28 16:57:00 Test Item Value Reference Range Interpretation Comments Bili Total (test code = Bili Total) 0.4 0.2-1.3 [facility]2015-12-28 16:57:00 Test Item Value Reference Range Interpretation Comments Glucose Lvl (test code = Glucose Lvl) 95 70-99 [facility]2015-12-28 16:57:00 Test Item Value Reference Range Interpretation Comments Creatinine Lvl (test code = Creatinine 0.93 0.50-1.40 Lvl) [facility]2015-12-28 16:57:00 Test Item Value Reference Range Interpretation Comments BUN (test code = BUN) 9 7-22 [facility]2015-12-28 16:57:00 Test Item Value Reference Range Interpretation Comments Sodium Lvl (test code = Sodium Lvl) 139 135-145 [facility]2015-12-28 16:57:00 Test Item Value Reference Range Interpretation Comments A/G Ratio (test code = A/G Ratio) 1.0 0.7-1.6 [facility]2015-12-28 16:57:00 Test Item Value Reference Range Interpretation Comments Globulin (test code = Globulin) 3.7 2.0-4.0 [facility]2015-12-28 16:57:00 Test Item Value Reference Range Interpretation Comments B/C Ratio (test code = B/C Ratio) 10 6-25 [facility]2015-12-28 16:57:00 Test Item Value Reference Range Interpretation Comments AGAP (test code = AGAP) 12.6 10.0-20.0 [place] [id number] 16:57:00 Test Item Value Reference Range Interpretation Comments S Preg (test code = S Negative *NA*(08/26/15 Preg) 10:57 AM) [facility] CenterBlemtliJPCEGYJCMY3807-86-49 16:57:00 Test Item Value Reference Range Interpretation Comments Eosinophils # (test code 0.4 See_Comment [A utomated message] The = Eosinophils #) system whic h generated this result tra nsmitted reference range : <=0.5. The reference r kat was not used to int erpret this result as normal/abnormal . [facility] CenterNozcwyeYGWCUXOEMQ1599-71-57 16:57:00 Test Item Value Reference Range Interpretation Comments Microcyte (test code = 1+ *ABN*(08/26/15 Microcyte) 10:57 AM) [facility] CenterHmsgsxcMELHPAGUCH5107-89-00 16:57:00 Test Item Value Reference Range Interpretation Comments Basophils # (test code 0.1 See_Comment [Aut omated message] The = Basophils #) system which generated this result tra nsmitted reference range : <=0.2. The reference r kat was not used to int erpret this result as normal/abnormal . [facility] CenterPqtgrykCCSOTRGTOJ8359-35-72 16:57:00 Test Item Value Reference Range Interpretation Comments Monocytes (test code = Monocytes) 8.6 2.0-12.0 [facility] CenterNftpfjqDCOIMLDPHP5272-72-46 16:57:00 Test Item Value Reference Range Interpretation Comments Lymphocytes (test code = Lymphocytes) 40.6 20.0-40.0 [facility] CenterNrwvqfxOXIFBOYYUR5736-96-60 16:57:00 Test Item Value Reference Range Interpretation Comments Eosinophils (test code = 5.0 See_Comment [A utomated message] The Eosinophils) system which ge nerated this result tra nsmitted reference range : <=4.0. The reference r kat was not used to int erpret this result as normal/abnormal . [facility] CenterIltvzgxJRDUAWHROK5199-91-80 16:57:00 Test Item Value Reference Range Interpretation Comments Segs (test code = Segs) 44.8 45.0-75.0 [facility] CenterYrmayewTOPRPUXFSA7332-59-75 16:57:00 Test Item Value Reference Range Interpretation Comments Basophils (test code = 1.0 See_Comment [Aut omated message] The Basophils) system which ge nerated this result tra nsmitted reference range : <=1.0. The reference r kat was not used to int erpret this result as normal/abnormal . [facility] CenterZrabbhaHNATHILNMF9670-64-09 16:57:00 Test Item Value Reference Range Interpretation Comments Segs-Bands # (test code = Segs-Bands #) 3.3 1.5-8.1 [facility] CenterCgaawrxDVKAXAQPXO8653-85-11 16:57:00 Test Item Value Reference Range Interpretation Comments Monocytes # (test code 0.6 See_Comment [Aut omated message] The = Monocytes #) system which generated this result tra nsmitted reference range : <=0.8. The reference r kat was not used to int erpret this result as normal/abnormal . [facility] CenterXtnggwlLUSVSEKKEM8567-80-16 16:57:00 Test Item Value Reference Range Interpretation Comments Lymphocytes # (test code = Lymphocytes 3.0 1.0-5.5 #) [facility] CenterGbtuwchRJCPUJOXQS7049-16-66 16:57:00 Test Item Value Reference Range Interpretation Comments PT (test code = PT) 14.0 s 12.0-14.7 [facility] CenterSgkpiupNQWRODWKUX2533-46-90 16:57:00 Test Item Value Reference Range Interpretation Comments INR (test code = INR) 1.05 0.85-1.17 [facility] CenterWiqdrizTPEVNIECOI3825-70-36 16:57:00 Test Item Value Reference Range Interpretation Comments PTT (test code = PTT) 30.3 s 22.9-35.8 [place] 845915-12-28 16:57:00 Test Item Value Reference Range Interpretation Comments MPV (test code = MPV) 8.9 7.4-10.4 [facility] CenterNnlhmveOXYLTRICIM6585-48-68 16:57:00 Test Item Value Reference Range Interpretation Comments RDW (test code = RDW) 15.8 11.5-14.5 [facility] CenterEftkwemPWHJPWIABZ8681-35-59 16:57:00 Test Item Value Reference Range Interpretation Comments Platelet (test code = Platelet) 271 133-450 [facility] CenterHqptrqzFTYUGXQTCE6559-84-35 16:57:00 Test Item Value Reference Range Interpretation Comments WBC (test code = WBC) 7.3 3.7-10.4 [facility] CenterLqtqieyZULGWSCROV4440-66-30 16:57:00 Test Item Value Reference Range Interpretation Comments RBC (test code = RBC) 5.14 4.20-5.40 [facility] CenterXnzwsvgRKHEBYLMAB9531-32-11 16:57:00 Test Item Value Reference Range Interpretation Comments MCV (test code = MCV) 77.9 80.0-98.0 [facility] CenterWtolxevHYQNHFXPXM3048-72-93 16:57:00 Test Item Value Reference Range Interpretation Comments MCH (test code = MCH) 23.9 pg 27.0-31.0 [facility] CenterJdpykjhAMRHHRVHIT7519-78-88 16:57:00 Test Item Value Reference Range Interpretation Comments MCHC (test code = MCHC) 30.7 32.0-36.0 [facility] CenterActqenaJCXGVAIJQM5924-28-09 16:57:00 Test Item Value Reference Range Interpretation Comments Hct (test code = Hct) 40.1 36.0-48.0 [facility] CenterVuqueyoTCLLQDTPMS6981-60-25 16:57:00 Test Item Value Reference Range Interpretation Comments Hgb (test code = Hgb) 12.3 12.0-16.0 [facility]2015-12-28 16:57:00 Test Item Value Reference Range Interpretation Comments eGFR (test code = eGFR) 86 [facility]2015-12-28 16:57:00 Test Item Value Reference Range Interpretation Comments Potassium Lvl (test code = Potassium 3.6 3.5-5.1 Lvl) [facility]2015-12-28 16:57:00 Test Item Value Reference Range Interpretation Comments CO2 (test code = CO2) 27 24-32 [facility]2015-12-28 16:57:00 Test Item Value Reference Range Interpretation Comments Chloride Lvl (test code = Chloride Lvl) 103 95-109 [facility]2015-12-28 16:57:00 Test Item Value Reference Range Interpretation Comments Calcium Lvl (test code = Calcium Lvl) 9.4 8.5-10.5 [facility]2015-12-28 16:57:00 Test Item Value Reference Range Interpretation Comments AST (test code = AST) 16 See_Comment [Auto mated message] The system which ge nerated this result transmit arvind reference range : <=37. The reference range was not used to interpr et this result as mario l/abnormal. [facility]2015-12-28 16:57:00 Test Item Value Reference Range Interpretation Comments ALT (test code = ALT) 43 See_Comment [Auto mated message] The system which ge nerated this result transmit arvind reference range : <=65. The reference range was not used to interpr et this result as mario l/abnormal. [facility]2015-12-28 16:57:00 Test Item Value Reference Range Interpretation Comments Alk Phos (test code = Alk Phos) 97 39-136 [facility]2015-12-28 16:57:00 Test Item Value Reference Range Interpretation Comments Albumin Lvl (test code = Albumin Lvl) 3.6 3.5-5.0 [facility]2015-12-28 16:57:00 Test Item Value Reference Range Interpretation Comments Total Protein (test code = Total 7.3 6.4-8.4 Protein) [facility]2015-12-28 16:57:00 Test Item Value Reference Range Interpretation Comments Bili Total (test code = Bili Total) 0.4 0.2-1.3 [facility]2015-12-28 16:57:00 Test Item Value Reference Range Interpretation Comments Glucose Lvl (test code = Glucose Lvl) 95 70-99 [facility]2015-12-28 16:57:00 Test Item Value Reference Range Interpretation Comments Creatinine Lvl (test code = Creatinine 0.93 0.50-1.40 Lvl) [facility]2015-12-28 16:57:00 Test Item Value Reference Range Interpretation Comments BUN (test code = BUN) 9 7- [facility]2015-12-28 16:57:00 Test Item Value Reference Range Interpretation Comments Sodium Lvl (test code = Sodium Lvl) 139 135-145 [facility]2015-12-28 16:57:00 Test Item Value Reference Range Interpretation Comments A/G Ratio (test code = A/G Ratio) 1.0 0.7-1.6 [facility]2015-12-28 16:57:00 Test Item Value Reference Range Interpretation Comments Globulin (test code = Globulin) 3.7 2.0-4.0 [facility]2015-12-28 16:57:00 Test Item Value Reference Range Interpretation Comments B/C Ratio (test code = B/C Ratio) 10 6- [facility]2015-12-28 16:57:00 Test Item Value Reference Range Interpretation Comments AGAP (test code = AGAP) 12.6 10.0-20.0 [place] [id number] 16:57:00 Test Item Value Reference Range Interpretation Comments S Preg (test code = S Negative *NA*(08/26/15 Preg) 10:57 AM) [facility]XrfpqtpWOSMNXRJSS7238-20-57 16:57:00 Test Item Value Reference Range Interpretation Comments Eosinophils # (test code 0.4 See_Comment [A utomated message] The = Eosinophils #) system ic h generated this result tra nsmitted reference range : <=0.5. The reference r kat was not used to int erpret this result as normal/abnormal . [facility] CenterCsuhejdUILVCZXCKT9058-21-07 16:57:00 Test Item Value Reference Range Interpretation Comments Microcyte (test code = 1+ *ABN*(08/26/15 Microcyte) 10:57 AM) [facility] CenterTzqozpxGQMTQWBSYQ6672-00-30 16:57:00 Test Item Value Reference Range Interpretation Comments Basophils # (test code 0.1 See_Comment [Aut omated message] The = Basophils #) system which generated this result tra nsmitted reference range : <=0.2. The reference r kat was not used to int erpret this result as normal/abnormal . [facility] CenterCtoipccTYDLRKRZBR0497-56-92 16:57:00 Test Item Value Reference Range Interpretation Comments Monocytes (test code = Monocytes) 8.6 2.0-12.0 [facility] CenterPlfepomBHRGGVTTFE8945-97-30 16:57:00 Test Item Value Reference Range Interpretation Comments Lymphocytes (test code = Lymphocytes) 40.6 20.0-40.0 [facility] CenterXayppksKFWIDDGTJT3915-51-92 16:57:00 Test Item Value Reference Range Interpretation Comments Eosinophils (test code = 5.0 See_Comment [A utomated message] The Eosinophils) system which ge nerated this result tra nsmitted reference range : <=4.0. The reference r kat was not used to int erpret this result as normal/abnormal . [facility] CenterAkvzlknZXFXSAWRGT8604-32-72 16:57:00 Test Item Value Reference Range Interpretation Comments Segs (test code = Segs) 44.8 45.0-75.0 [facility] CenterMmaoenuZDIHISOSLL3422-30-10 16:57:00 Test Item Value Reference Range Interpretation Comments Basophils (test code = 1.0 See_Comment [Aut omated message] The Basophils) system which ge nerated this result tra nsmitted reference range : <=1.0. The reference r kat was not used to int erpret this result as normal/abnormal . [facility] CenterZarrjmrJXGBRZMDNL7688-67-18 16:57:00 Test Item Value Reference Range Interpretation Comments Segs-Bands # (test code = Segs-Bands #) 3.3 1.5-8.1 [facility] CenterYrrgsrjEAAUSIMHKX1371-37-15 16:57:00 Test Item Value Reference Range Interpretation Comments Monocytes # (test code 0.6 See_Comment [Aut omated message] The = Monocytes #) system which generated this result tra nsmitted reference range : <=0.8. The reference r kat was not used to int erpret this result as normal/abnormal . [facility] CenterSzttmimEGPAMHMQPB2983-72-59 16:57:00 Test Item Value Reference Range Interpretation Comments Lymphocytes # (test code = Lymphocytes 3.0 1.0-5.5 #) [facility] CenterTgpgtxfBUPRWEUQVO7169-03-82 16:57:00 Test Item Value Reference Range Interpretation Comments PT (test code = PT) 14.0 s 12.0-14.7 [facility] CenterFppsrktMNSSCMPRWD9945-99-13 16:57:00 Test Item Value Reference Range Interpretation Comments INR (test code = INR) 1.05 0.85-1.17 [facility] CenterStavlnlZRLQEYDXHS2814-43-77 16:57:00 Test Item Value Reference Range Interpretation Comments PTT (test code = PTT) 30.3 s 22.9-35.8 [facility] CenterNwpcfztQDRYWMKYLM2186-89-61 16:57:00 Test Item Value Reference Range Interpretation Comments MPV (test code = MPV) 8.9 7.4-10.4 [facility] CenterCjdyyivQNMLWSDQXK3864-46-44 16:57:00 Test Item Value Reference Range Interpretation Comments RDW (test code = RDW) 15.8 11.5-14.5 [facility] CenterJzmthzbRLINPXLIIG6152-35-95 16:57:00 Test Item Value Reference Range Interpretation Comments Platelet (test code = Platelet) 271 133-450 [facility] CenterGckroqlNABZJXINSC6822-57-53 16:57:00 Test Item Value Reference Range Interpretation Comments WBC (test code = WBC) 7.3 3.7-10.4 [facility] CenterCiwtnssHBWABQVARU8006-69-15 16:57:00 Test Item Value Reference Range Interpretation Comments RBC (test code = RBC) 5.14 4.20-5.40 [facility] CenterXhkpdkgBTOVUVGPYI0568-46-09 16:57:00 Test Item Value Reference Range Interpretation Comments MCV (test code = MCV) 77.9 80.0-98.0 [facility] CenterFthibgzEVQVNTSOTH6814-87-81 16:57:00 Test Item Value Reference Range Interpretation Comments MCH (test code = MCH) 23.9 pg 27.0-31.0 [facility] CenterCkufpnxOXJKHOQYFX8789-71-99 16:57:00 Test Item Value Reference Range Interpretation Comments MCHC (test code = MCHC) 30.7 32.0-36.0 [facility] CenterFjpicjuJZNRJGSMQE8564-50-51 16:57:00 Test Item Value Reference Range Interpretation Comments Hct (test code = Hct) 40.1 36.0-48.0 [facility] CenterTpotqohUNURYMSIIM4889-64-18 16:57:00 Test Item Value Reference Range Interpretation Comments Hgb (test code = Hgb) 12.3 12.0-16.0 [facility]2015-12-28 16:57:00 Test Item Value Reference Range Interpretation Comments eGFR (test code = eGFR) 86 [facility]2015-12-28 16:57:00 Test Item Value Reference Range Interpretation Comments Potassium Lvl (test code = Potassium 3.6 3.5-5.1 Lvl) [facility]2015-12-28 16:57:00 Test Item Value Reference Range Interpretation Comments CO2 (test code = CO2) 27 24-32 [place] 610125-12-28 16:57:00 Test Item Value Reference Range Interpretation Comments Chloride Lvl (test code = Chloride Lvl) 103 95-109 [facility]2015-12-28 16:57:00 Test Item Value Reference Range Interpretation Comments Calcium Lvl (test code = Calcium Lvl) 9.4 8.5-10.5 [facility]2015-12-28 16:57:00 Test Item Value Reference Range Interpretation Comments AST (test code = AST) 16 See_Comment [Auto mated message] The system which ge nerated this result transmit arvind reference range : <=37. The reference range was not used to interpr et this result as mario l/abnormal. [facility]2015-12-28 16:57:00 Test Item Value Reference Range Interpretation Comments ALT (test code = ALT) 43 See_Comment [Auto mated message] The system which ge nerated this result transmit arvind reference range : <=65. The reference range was not used to interpr et this result as mario l/abnormal. [facility]2015-12-28 16:57:00 Test Item Value Reference Range Interpretation Comments Alk Phos (test code = Alk Phos) 97 39-136 [facility]2015-12-28 16:57:00 Test Item Value Reference Range Interpretation Comments Albumin Lvl (test code = Albumin Lvl) 3.6 3.5-5.0 [facility]2015-12-28 16:57:00 Test Item Value Reference Range Interpretation Comments Total Protein (test code = Total 7.3 6.4-8.4 Protein) [facility]2015-12-28 16:57:00 Test Item Value Reference Range Interpretation Comments Bili Total (test code = Bili Total) 0.4 0.2-1.3 [place] 610125-12-28 16:57:00 Test Item Value Reference Range Interpretation Comments Glucose Lvl (test code = Glucose Lvl) 95 70-99 [facility]2015-12-28 16:57:00 Test Item Value Reference Range Interpretation Comments Creatinine Lvl (test code = Creatinine 0.93 0.50-1.40 Lvl) [facility]2015-12-28 16:57:00 Test Item Value Reference Range Interpretation Comments BUN (test code = BUN) 9 7- [facility]2015-12-28 16:57:00 Test Item Value Reference Range Interpretation Comments Sodium Lvl (test code = Sodium Lvl) 139 135-145 [facility]2015-12-28 16:57:00 Test Item Value Reference Range Interpretation Comments A/G Ratio (test code = A/G Ratio) 1.0 0.7-1.6 [facility]2015-12-28 16:57:00 Test Item Value Reference Range Interpretation Comments Globulin (test code = Globulin) 3.7 2.0-4.0 [facility]2015-12-28 16:57:00 Test Item Value Reference Range Interpretation Comments B/C Ratio (test code = B/C Ratio) 10 - [facility]2015-12-28 16:57:00 Test Item Value Reference Range Interpretation Comments AGAP (test code = AGAP) 12.6 10.0-20.0 [place] 68251015-12-28 16:57:00 Test Item Value Reference Range Interpretation Comments S Preg (test code = S Negative *NA*(08/26/15 Preg) 10:57 AM) [facility] CenterXzxcujaEQPCYMAABU2156-49-25 16:57:00 Test Item Value Reference Range Interpretation Comments Eosinophils # (test code 0.4 See_Comment [A utomated message] The = Eosinophils #) system whic h generated this result tra nsmitted reference range : <=0.5. The reference r kat was not used to int erpret this result as normal/abnormal . [facility] CenterAoqemafGUKYAKMKXF0651-69-85 16:57:00 Test Item Value Reference Range Interpretation Comments Microcyte (test code = 1+ *ABN*(08/26/15 Microcyte) 10:57 AM) [facility] CenterIpgpiszQDATEBVWOU6100-56-80 16:57:00 Test Item Value Reference Range Interpretation Comments Basophils # (test code 0.1 See_Comment [Aut omated message] The = Basophils #) system which generated this result tra nsmitted reference range : <=0.2. The reference r kat was not used to int erpret this result as normal/abnormal . [facility] CenterFgosfiaBHZSOOYFJD2757-58-47 16:57:00 Test Item Value Reference Range Interpretation Comments Monocytes (test code = Monocytes) 8.6 2.0-12.0 [facility] CenterLuhmzvxROGDMUFOXC3466-05-88 16:57:00 Test Item Value Reference Range Interpretation Comments Lymphocytes (test code = Lymphocytes) 40.6 20.0-40.0 [facility] CenterJydkuxnVAULTYIKUS5309-76-46 16:57:00 Test Item Value Reference Range Interpretation Comments Eosinophils (test code = 5.0 See_Comment [A utomated message] The Eosinophils) system which ge nerated this result tra nsmitted reference range : <=4.0. The reference r kat was not used to int erpret this result as normal/abnormal . [facility] CenterScgbjiiCNCDJEYFIU6325-32-73 16:57:00 Test Item Value Reference Range Interpretation Comments Segs (test code = Segs) 44.8 45.0-75.0 [facility] CenterTgvtvaeCHVECXSRTA7852-57-82 16:57:00 Test Item Value Reference Range Interpretation Comments Basophils (test code = 1.0 See_Comment [Aut omated message] The Basophils) system which ge nerated this result tra nsmitted reference range : <=1.0. The reference r kat was not used to int erpret this result as normal/abnormal . [facility] CenterUfjelxiVEHYZENUXN5574-90-41 16:57:00 Test Item Value Reference Range Interpretation Comments Segs-Bands # (test code = Segs-Bands #) 3.3 1.5-8.1 [facility] CenterHpyoigvBBQIUFUCUP1151-95-15 16:57:00 Test Item Value Reference Range Interpretation Comments Monocytes # (test code 0.6 See_Comment [Aut omated message] The = Monocytes #) system which generated this result tra nsmitted reference range : <=0.8. The reference r kat was not used to int erpret this result as normal/abnormal . [facility] CenterUjilbnwYBOMWGMJQP9314-49-37 16:57:00 Test Item Value Reference Range Interpretation Comments Lymphocytes # (test code = Lymphocytes 3.0 1.0-5.5 #) [facility] CenterSoabsyoOPDTAFIBCE7753-93-21 16:57:00 Test Item Value Reference Range Interpretation Comments PT (test code = PT) 14.0 s 12.0-14.7 [facility] CenterHgshfjtYEMMCOONTB3477-78-08 16:57:00 Test Item Value Reference Range Interpretation Comments INR (test code = INR) 1.05 0.85-1.17 [facility] CenterLmhcckmSBVNLSFBMW8143-37-29 16:57:00 Test Item Value Reference Range Interpretation Comments PTT (test code = PTT) 30.3 s 22.9-35.8 [facility] CenterYbqkqdaHUVNOQWIZR6750-56-36 16:57:00 Test Item Value Reference Range Interpretation Comments MPV (test code = MPV) 8.9 7.4-10.4 [facility] CenterGgqhnirOAXYMTFPEJ1759-18-53 16:57:00 Test Item Value Reference Range Interpretation Comments RDW (test code = RDW) 15.8 11.5-14.5 [facility] CenterGpkmkolUCBSPZHGNE8559-20-73 16:57:00 Test Item Value Reference Range Interpretation Comments Platelet (test code = Platelet) 271 133-450 [facility] CenterLspaoaoXDUIAMFZKZ7840-61-98 16:57:00 Test Item Value Reference Range Interpretation Comments WBC (test code = WBC) 7.3 3.7-10.4 [facility] CenterZobzkizTHBSCQATAZ4203-96-14 16:57:00 Test Item Value Reference Range Interpretation Comments RBC (test code = RBC) 5.14 4.20-5.40 [facility] CenterHjpzgvkTZAXMCQTFS3817-86-05 16:57:00 Test Item Value Reference Range Interpretation Comments MCV (test code = MCV) 77.9 80.0-98.0 [facility] CenterLewsdrrUZYQWLIMCE1002-53-70 16:57:00 Test Item Value Reference Range Interpretation Comments MCH (test code = MCH) 23.9 pg 27.0-31.0 [facility] CenterWpxriieCFAIQHVONN0031-10-46 16:57:00 Test Item Value Reference Range Interpretation Comments MCHC (test code = MCHC) 30.7 32.0-36.0 [facility] CenterVkopgduYSOHCKVIYX8341-61-77 16:57:00 Test Item Value Reference Range Interpretation Comments Hct (test code = Hct) 40.1 36.0-48.0 [facility]bgre[facility]XZENSRNUPM5089-66-35 16:57:00 Test Item Value Reference Range Interpretation Comments Hgb (test code = Hgb) 12.3 12.0-16.0 [facility]2015-12-28 16:57:00 Test Item Value Reference Range Interpretation Comments eGFR (test code = eGFR) 86 [facility]2015-12-28 16:57:00 Test Item Value Reference Range Interpretation Comments Potassium Lvl (test code = Potassium 3.6 3.5-5.1 Lvl) [facility]2015-12-28 16:57:00 Test Item Value Reference Range Interpretation Comments CO2 (test code = CO2) 27 24-32 [facility]2015-12-28 16:57:00 Test Item Value Reference Range Interpretation Comments Chloride Lvl (test code = Chloride Lvl) 103 95-109 [facility]2015-12-28 16:57:00 Test Item Value Reference Range Interpretation Comments Calcium Lvl (test code = Calcium Lvl) 9.4 8.5-10.5 [facility]2015-12-28 16:57:00 Test Item Value Reference Range Interpretation Comments AST (test code = AST) 16 See_Comment [Auto mated message] The system which ge nerated this result transmit arvind reference range : <=37. The reference range was not used to interpr et this result as mario l/abnormal. [facility]2015-12-28 16:57:00 Test Item Value Reference Range Interpretation Comments ALT (test code = ALT) 43 See_Comment [Auto mated message] The system which ge nerated this result transmit arvind reference range : <=65. The reference range was not used to interpr et this result as mario l/abnormal. [facility]2015-12-28 16:57:00 Test Item Value Reference Range Interpretation Comments Alk Phos (test code = Alk Phos) 97 39-136 [facility]2015-12-28 16:57:00 Test Item Value Reference Range Interpretation Comments Albumin Lvl (test code = Albumin Lvl) 3.6 3.5-5.0 [facility]2015-12-28 16:57:00 Test Item Value Reference Range Interpretation Comments Total Protein (test code = Total 7.3 6.4-8.4 Protein) [facility]2015-12-28 16:57:00 Test Item Value Reference Range Interpretation Comments Bili Total (test code = Bili Total) 0.4 0.2-1.3 [facility]2015-12-28 16:57:00 Test Item Value Reference Range Interpretation Comments Glucose Lvl (test code = Glucose Lvl) 95 70-99 [facility]2015-12-28 16:57:00 Test Item Value Reference Range Interpretation Comments Creatinine Lvl (test code = Creatinine 0.93 0.50-1.40 Lvl) [facility]2015-12-28 16:57:00 Test Item Value Reference Range Interpretation Comments BUN (test code = BUN) 9 - [facility]2015-12-28 16:57:00 Test Item Value Reference Range Interpretation Comments Sodium Lvl (test code = Sodium Lvl) 139 135-145 [facility]2015-12-28 16:57:00 Test Item Value Reference Range Interpretation Comments A/G Ratio (test code = A/G Ratio) 1.0 0.7-1.6 [facility]2015-12-28 16:57:00 Test Item Value Reference Range Interpretation Comments Globulin (test code = Globulin) 3.7 2.0-4.0 [facility]2015-12-28 16:57:00 Test Item Value Reference Range Interpretation Comments B/C Ratio (test code = B/C Ratio) 10 - [facility]2015-12-28 16:57:00 Test Item Value Reference Range Interpretation Comments AGAP (test code = AGAP) 12.6 10.0-20.0 [facility]FRFYUFK9741[facility]71[facility]95 16:57:00 Test Item Value Reference Range Interpretation Comments S Preg (test code = S Negative *NA*(08/26/15 Preg) 10:57 AM) [facility] CenterNuyticcAWKAVLANIU0043-33-81 16:57:00 Test Item Value Reference Range Interpretation Comments Eosinophils # (test code 0.4 See_Comment [A utomated message] The = Eosinophils #) system [facility] h generated this result tra nsmitted reference range : <=0.5. The reference r kat was not used to int erpret this result as normal/abnormal . [facility] CenterHruxmvwVXCZPVVJBT6539-75-23 16:57:00 Test Item Value Reference Range Interpretation Comments Microcyte (test code = 1+ *ABN*(08/26/15 Microcyte) 10:57 AM) [facility] CenterCsvfjpeQXNNCHKDAO1162-24-83 16:57:00 Test Item Value Reference Range Interpretation Comments Basophils # (test code 0.1 See_Comment [Aut omated message] The = Basophils #) system which generated this result tra nsmitted reference range : <=0.2. The reference r kat was not used to int erpret this result as normal/abnormal . [facility] CenterCbwvvxgQOGUIQNQDY0593-72-02 16:57:00 Test Item Value Reference Range Interpretation Comments Monocytes (test code = Monocytes) 8.6 2.0-12.0 [facility] CenterJvzfltmCPUWVEHKBX3404-37-67 16:57:00 Test Item Value Reference Range Interpretation Comments Lymphocytes (test code = Lymphocytes) 40.6 20.0-40.0 [facility] CenterBjrotslHKMDXHYUFF6267-77-82 16:57:00 Test Item Value Reference Range Interpretation Comments Eosinophils (test code = 5.0 See_Comment [A utomated message] The Eosinophils) system which ge nerated this result tra nsmitted reference range : <=4.0. The reference r kat was not used to int erpret this result as normal/abnormal . [facility] CenterUqyqtwvXMHCCFQVPC0943-56-49 16:57:00 Test Item Value Reference Range Interpretation Comments Segs (test code = Segs) 44.8 45.0-75.0 [facility] CenterEsxfohcHNWBXOBGNB1080-60-48 16:57:00 Test Item Value Reference Range Interpretation Comments Basophils (test code = 1.0 See_Comment [Aut omated message] The Basophils) system which ge nerated this result tra nsmitted reference range : <=1.0. The reference r kat was not used to int erpret this result as normal/abnormal . [facility] CenterYcbfmtbJOCYTFKJNP8266-89-49 16:57:00 Test Item Value Reference Range Interpretation Comments Segs-Bands # (test code = Segs-Bands #) 3.3 1.5-8.1 [facility] CenterTogefjnPPVYWXQOCM0860-10-68 16:57:00 Test Item Value Reference Range Interpretation Comments Monocytes # (test code 0.6 See_Comment [Aut omated message] The = Monocytes #) system which generated this result tra nsmitted reference range : <=0.8. The reference r kat was not used to int erpret this result as normal/abnormal . [facility] CenterXssfyneLNGWASLHBB3735-29-57 16:57:00 Test Item Value Reference Range Interpretation Comments Lymphocytes # (test code = Lymphocytes 3.0 1.0-5.5 #) [facility] CenterDjwpayoJWZPHSMKXS5045-88-01 16:57:00 Test Item Value Reference Range Interpretation Comments PT (test code = PT) 14.0 s 12.0-14.7 [facility] CenterHcgmadeJGULXUHVFI4575-15-92 16:57:00 Test Item Value Reference Range Interpretation Comments INR (test code = INR) 1.05 0.85-1.17 [facility] CenterWcmnymqBLWLWDSUIE8264-47-49 16:57:00 Test Item Value Reference Range Interpretation Comments PTT (test code = PTT) 30.3 s 22.9-35.8 [facility] CenterTbhkmznTLBIVAYKBA7337-27-66 16:57:00 Test Item Value Reference Range Interpretation Comments MPV (test code = MPV) 8.9 7.4-10.4 [facility] CenterIrsrlcdHQDIRSWCUO7727-51-87 16:57:00 Test Item Value Reference Range Interpretation Comments RDW (test code = RDW) 15.8 11.5-14.5 [facility] CenterSmbvauxNRJVIZJDPK6645-18-71 16:57:00 Test Item Value Reference Range Interpretation Comments Platelet (test code = Platelet) 271 133-450 [facility] CenterJgpxjcoHELQQADXMF3805-66-63 16:57:00 Test Item Value Reference Range Interpretation Comments WBC (test code = WBC) 7.3 3.7-10.4 [facility] CenterQlafoeiFJJBECVXNG7959-12-98 16:57:00 Test Item Value Reference Range Interpretation Comments RBC (test code = RBC) 5.14 4.20-5.40 [facility] CenterQcgnikqSXAODSKIBT8476-03-56 16:57:00 Test Item Value Reference Range Interpretation Comments MCV (test code = MCV) 77.9 80.0-98.0 [facility] CenterEzwmicnRTTISDRYRG4487-78-31 16:57:00 Test Item Value Reference Range Interpretation Comments MCH (test code = MCH) 23.9 pg 27.0-31.0 [facility] CenterHateyscYLNPLNMDFA8494-94-55 16:57:00 Test Item Value Reference Range Interpretation Comments MCHC (test code = MCHC) 30.7 32.0-36.0 [facility] CenterMmkiakkWAFAAIXKBE3595-38-73 16:57:00 Test Item Value Reference Range Interpretation Comments Hct (test code = Hct) 40.1 36.0-48.0 [facility] CenterUivgtskTGOPRKGJCQ6309-55-10 16:57:00 Test Item Value Reference Range Interpretation Comments Hgb (test code = Hgb) 12.3 12.0-16.0 [place] 610125-12-28 16:57:00 Test Item Value Reference Range Interpretation Comments eGFR (test code = eGFR) 86 [facility]2015-12-28 16:57:00 Test Item Value Reference Range Interpretation Comments Potassium Lvl (test code = Potassium 3.6 3.5-5.1 Lvl) [facility]2015-12-28 16:57:00 Test Item Value Reference Range Interpretation Comments CO2 (test code = CO2) 27 24-32 [facility]2015-12-28 16:57:00 Test Item Value Reference Range Interpretation Comments Chloride Lvl (test code = Chloride Lvl) 103 95-109 [facility]2015-12-28 16:57:00 Test Item Value Reference Range Interpretation Comments Calcium Lvl (test code = Calcium Lvl) 9.4 8.5-10.5 [facility]2015-12-28 16:57:00 Test Item Value Reference Range Interpretation Comments AST (test code = AST) 16 See_Comment [Auto mated message] The system which ge nerated this result transmit arvind reference range : <=37. The reference range was not used to interpr et this result as mario l/abnormal. [facility]2015-12-28 16:57:00 Test Item Value Reference Range Interpretation Comments ALT (test code = ALT) 43 See_Comment [Auto mated message] The system which ge nerated this result transmit arvind reference range : <=65. The reference range was not used to interpr et this result as mario l/abnormal. [place] 610125-12-28 16:57:00 Test Item Value Reference Range Interpretation Comments Alk Phos (test code = Alk Phos) 97 39-136 [facility]2015-12-28 16:57:00 Test Item Value Reference Range Interpretation Comments Albumin Lvl (test code = Albumin Lvl) 3.6 3.5-5.0 [facility]2015-12-28 16:57:00 Test Item Value Reference Range Interpretation Comments Total Protein (test code = Total 7.3 6.4-8.4 Protein) [facility]2015-12-28 16:57:00 Test Item Value Reference Range Interpretation Comments Bili Total (test code = Bili Total) 0.4 0.2-1.3 [facility]2015-12-28 16:57:00 Test Item Value Reference Range Interpretation Comments Glucose Lvl (test code = Glucose Lvl) 95 70-99 [facility]2015-12-28 16:57:00 Test Item Value Reference Range Interpretation Comments Creatinine Lvl (test code = Creatinine 0.93 0.50-1.40 Lvl) [facility]2015-12-28 16:57:00 Test Item Value Reference Range Interpretation Comments BUN (test code = BUN) 9 - [facility]2015-12-28 16:57:00 Test Item Value Reference Range Interpretation Comments Sodium Lvl (test code = Sodium Lvl) 139 135-145 [facility]2015-12-28 16:57:00 Test Item Value Reference Range Interpretation Comments A/G Ratio (test code = A/G Ratio) 1.0 0.7-1.6 [facility]2015-12-28 16:57:00 Test Item Value Reference Range Interpretation Comments Globulin (test code = Globulin) 3.7 2.0-4.0 [facility]2015-12-28 16:57:00 Test Item Value Reference Range Interpretation Comments B/C Ratio (test code = B/C Ratio) 10 6- [facility]2015-12-28 16:57:00 Test Item Value Reference Range Interpretation Comments eGFR (test code = eGFR) 86 [facility]2015-12-28 16:57:00 Test Item Value Reference Range Interpretation Comments Potassium Lvl (test code = Potassium 3.6 3.5-5.1 Lvl) [facility]2015-12-28 16:57:00 Test Item Value Reference Range Interpretation Comments CO2 (test code = CO2) 27 24-32 [facility]2015-12-28 16:57:00 Test Item Value Reference Range Interpretation Comments Chloride Lvl (test code = Chloride Lvl) 103 95-109 [facility]2015-12-28 16:57:00 Test Item Value Reference Range Interpretation Comments Calcium Lvl (test code = Calcium Lvl) 9.4 8.5-10.5 [facility]2015-12-28 16:57:00 Test Item Value Reference Range Interpretation Comments AST (test code = AST) 16 See_Comment [Auto mated message] The system which ge nerated this result transmit arvind reference range : <=37. The reference range was not used to interpr et this result as mario l/abnormal. [facility]2015-12-28 16:57:00 Test Item Value Reference Range Interpretation Comments AGAP (test code = AGAP) 12.6 10.0-20.0 [facility]2015-12-28 16:57:00 Test Item Value Reference Range Interpretation Comments ALT (test code = ALT) 43 See_Comment [Auto mated message] The system which ge nerated this result transmit arvind reference range : <=65. The reference range was not used to interpr et this result as mario l/abnormal. [facility]2015-12-28 16:57:00 Test Item Value Reference Range Interpretation Comments Alk Phos (test code = Alk Phos) 97 39-136 [facility]2015-12-28 16:57:00 Test Item Value Reference Range Interpretation Comments Albumin Lvl (test code = Albumin Lvl) 3.6 3.5-5.0 [facility]2015-12-28 16:57:00 Test Item Value Reference Range Interpretation Comments Total Protein (test code = Total 7.3 6.4-8.4 Protein) [facility]2015-12-28 16:57:00 Test Item Value Reference Range Interpretation Comments Bili Total (test code = Bili Total) 0.4 0.2-1.3 [facility]2015-12-28 16:57:00 Test Item Value Reference Range Interpretation Comments Glucose Lvl (test code = Glucose Lvl) 95 70-99 [facility]2015-12-28 16:57:00 Test Item Value Reference Range Interpretation Comments Creatinine Lvl (test code = Creatinine 0.93 0.50-1.40 Lvl) [facility]2015-12-28 16:57:00 Test Item Value Reference Range Interpretation Comments BUN (test code = BUN) 9 7-22 [facility]2015-12-28 16:57:00 Test Item Value Reference Range Interpretation Comments Sodium Lvl (test code = Sodium Lvl) 139 135-145 [facility]2015-12-28 16:57:00 Test Item Value Reference Range Interpretation Comments A/G Ratio (test code = A/G Ratio) 1.0 0.7-1.6 [place] 086305-12-28 16:57:00 Test Item Value Reference Range Interpretation Comments S Preg (test code = S Negative *NA*(08/26/15 Preg) 10:57 AM) [facility]2015-12-28 16:57:00 Test Item Value Reference Range Interpretation Comments Globulin (test code = Globulin) 3.7 2.0-4.0 [facility]2015-12-28 16:57:00 Test Item Value Reference Range Interpretation Comments B/C Ratio (test code = B/C Ratio) 10 6-25 [facility]2015-12-28 16:57:00 Test Item Value Reference Range Interpretation Comments AGAP (test code = AGAP) 12.6 10.0-20.0 [place] 086305-12-28 16:57:00 Test Item Value Reference Range Interpretation Comments S Preg (test code = S Negative *NA*(08/26/15 Preg) 10:57 AM) [facility] CenterNftijfcTZSXDBYATC9074-46-34 16:57:00 Test Item Value Reference Range Interpretation Comments Eosinophils # (test code 0.4 See_Comment [A utomated message] The = Eosinophils #) system whic h generated this result tra nsmitted reference range : <=0.5. The reference r kat was not used to int erpret this result as normal/abnormal . [facility] CenterMgcgwmiTFIIQKBWZD0249-36-73 16:57:00 Test Item Value Reference Range Interpretation Comments Microcyte (test code = 1+ *ABN*(08/26/15 Microcyte) 10:57 AM) [facility] CenterIkpmawtCKZKVUQIYI8154-01-01 16:57:00 Test Item Value Reference Range Interpretation Comments Basophils # (test code 0.1 See_Comment [Aut omated message] The = Basophils #) system which generated this result tra nsmitted reference range : <=0.2. The reference r kat was not used to int erpret this result as normal/abnormal . [facility] CenterOruixekCVBTPWBBIK3932-88-95 16:57:00 Test Item Value Reference Range Interpretation Comments Monocytes (test code = Monocytes) 8.6 2.0-12.0 [facility] CenterYapbvuxMXRBIGLJPE3070-41-57 16:57:00 Test Item Value Reference Range Interpretation Comments Lymphocytes (test code = Lymphocytes) 40.6 20.0-40.0 [facility] CenterLnohtmcLBLPIIZGNE4381-95-98 16:57:00 Test Item Value Reference Range Interpretation Comments Eosinophils (test code = 5.0 See_Comment [A utomated message] The Eosinophils) system which ge nerated this result tra nsmitted reference range : <=4.0. The reference r kat was not used to int erpret this result as normal/abnormal . [facility] CenterAbqpwwrYZRFUJQYQY4379-05-30 16:57:00 Test Item Value Reference Range Interpretation Comments Eosinophils # (test code 0.4 See_Comment [A utomated message] The = Eosinophils #) system [facility] h generated this result tra nsmitted reference range : <=0.5. The reference r kat was not used to int erpret this result as normal/abnormal . [facility] CenterZptdzooXVCBESQAHF6149-29-15 16:57:00 Test Item Value Reference Range Interpretation Comments Segs (test code = Segs) 44.8 45.0-75.0 [facility] CenterFsonxomYSFIICPEEQ8366-00-26 16:57:00 Test Item Value Reference Range Interpretation Comments Basophils (test code = 1.0 See_Comment [Aut omated message] The Basophils) system which ge nerated this result tra nsmitted reference range : <=1.0. The reference r kat was not used to int erpret this result as normal/abnormal . [facility] CenterOaphokuCZXOOYAQTO9808-90-45 16:57:00 Test Item Value Reference Range Interpretation Comments Segs-Bands # (test code = Segs-Bands #) 3.3 1.5-8.1 [facility] CenterTamncybOSGICHPIKN1972-74-39 16:57:00 Test Item Value Reference Range Interpretation Comments Monocytes # (test code 0.6 See_Comment [Aut omated message] The = Monocytes #) system which generated this result tra nsmitted reference range : <=0.8. The reference r kat was not used to int erpret this result as normal/abnormal . [facility] CenterMpvioxxMDMTKQDRKB5650-40-66 16:57:00 Test Item Value Reference Range Interpretation Comments Lymphocytes # (test code = Lymphocytes 3.0 1.0-5.5 #) [facility] CenterVxdwxckKOKUBSYIOQ6235-93-51 16:57:00 Test Item Value Reference Range Interpretation Comments PT (test code = PT) 14.0 s 12.0-14.7 [facility] CenterRtwlwhhCFWLMGGODS1319-14-10 16:57:00 Test Item Value Reference Range Interpretation Comments INR (test code = INR) 1.05 0.85-1.17 [facility] CenterWdiokmfVSQKNWECKD9747-23-10 16:57:00 Test Item Value Reference Range Interpretation Comments PTT (test code = PTT) 30.3 s 22.9-35.8 [facility] CenterPrrmiiiRMJJQDWJFC7166-13-78 16:57:00 Test Item Value Reference Range Interpretation Comments MPV (test code = MPV) 8.9 7.4-10.4 [facility] CenterSkucpzoMQFJVQPISC1186-98-28 16:57:00 Test Item Value Reference Range Interpretation Comments RDW (test code = RDW) 15.8 11.5-14.5 [facility] CenterGeirtiiZFHKPXDAWN0361-91-02 16:57:00 Test Item Value Reference Range Interpretation Comments Microcyte (test code = 1+ *ABN*(08/26/15 Microcyte) 10:57 AM) [facility] CenterSoiumpwHSRWBTIULU3558-40-22 16:57:00 Test Item Value Reference Range Interpretation Comments Platelet (test code = Platelet) 271 133-450 [facility] CenterJuaywqaMVNUJNKMTJ6430-02-73 16:57:00 Test Item Value Reference Range Interpretation Comments WBC (test code = WBC) 7.3 3.7-10.4 [facility] CenterQwdbcvfUWARMIDFYL4647-14-91 16:57:00 Test Item Value Reference Range Interpretation Comments RBC (test code = RBC) 5.14 4.20-5.40 [facility] CenterFohvmyqFIEUMOOIJP9205-45-77 16:57:00 Test Item Value Reference Range Interpretation Comments MCV (test code = MCV) 77.9 80.0-98.0 [facility] CenterRsiddjgFIGFNHFOEL4885-94-28 16:57:00 Test Item Value Reference Range Interpretation Comments MCH (test code = MCH) 23.9 pg 27.0-31.0 [facility] CenterOcfuqmsKEAFKNDQYX0484-29-09 16:57:00 Test Item Value Reference Range Interpretation Comments MCHC (test code = MCHC) 30.7 32.0-36.0 [facility] CenterGygadmqZJJCWELCPX1648-50-02 16:57:00 Test Item Value Reference Range Interpretation Comments Hct (test code = Hct) 40.1 36.0-48.0 [facility] CenterEqczjbfJPREYBEONS0958-42-55 16:57:00 Test Item Value Reference Range Interpretation Comments Hgb (test code = Hgb) 12.3 12.0-16.0 [facility] CenterQsjmmqkRVQFJCJRFJ6342-24-46 16:57:00 Test Item Value Reference Range Interpretation Comments Basophils # (test code 0.1 See_Comment [Aut omated message] The = Basophils #) system which generated this result tra nsmitted reference range : <=0.2. The reference r kat was not used to int erpret this result as normal/abnormal . [facility] CenterQyksdiaSKNHKTOPAH7668-30-62 16:57:00 Test Item Value Reference Range Interpretation Comments Monocytes (test code = Monocytes) 8.6 2.0-12.0 [facility] CenterLxafqsnLLGAWIWNPE4716-85-97 16:57:00 Test Item Value Reference Range Interpretation Comments Lymphocytes (test code = Lymphocytes) 40.6 20.0-40.0 [facility] CenterDwtfajmRSOHLXEAOX9446-78-55 16:57:00 Test Item Value Reference Range Interpretation Comments Eosinophils (test code = 5.0 See_Comment [A utomated message] The Eosinophils) system which ge nerated this result tra nsmitted reference range : <=4.0. The reference r kat was not used to int erpret this result as normal/abnormal . [facility] CenterAoskherPBKMJETVFO7279-21-65 16:57:00 Test Item Value Reference Range Interpretation Comments Segs (test code = Segs) 44.8 45.0-75.0 [facility] CenterTmtpsycFWDQTFNVDN3631-85-76 16:57:00 Test Item Value Reference Range Interpretation Comments Basophils (test code = 1.0 See_Comment [Aut omated message] The Basophils) system which ge nerated this result tra nsmitted reference range : <=1.0. The reference r kat was not used to int erpret this result as normal/abnormal . [facility] CenterVyalsnzIKMNWSSWXD2023-74-37 16:57:00 Test Item Value Reference Range Interpretation Comments Segs-Bands # (test code = Segs-Bands #) 3.3 1.5-8.1 [facility] CenterFhhcqtrYEMFDLHSEK9889-35-41 16:57:00 Test Item Value Reference Range Interpretation Comments Monocytes # (test code 0.6 See_Comment [Aut omated message] The = Monocytes #) system which generated this result tra nsmitted reference range : <=0.8. The reference r kat was not used to int erpret this result as normal/abnormal . [facility] CenterBowuinpDJNHUQHFNG9762-88-31 16:57:00 Test Item Value Reference Range Interpretation Comments Lymphocytes # (test code = Lymphocytes 3.0 1.0-5.5 #) [facility] CenterUozctpmBYBBYOLRMA8351-53-55 16:57:00 Test Item Value Reference Range Interpretation Comments PT (test code = PT) 14.0 s 12.0-14.7 [facility] CenterSdvroyiMKYTKJRTKB0129-85-91 16:57:00 Test Item Value Reference Range Interpretation Comments INR (test code = INR) 1.05 0.85-1.17 [facility] CenterItezvshQKBCUTGXSE1590-26-68 16:57:00 Test Item Value Reference Range Interpretation Comments PTT (test code = PTT) 30.3 s 22.9-35.8 [facility] CenterJgidvzuSETLIZMXGK0457-20-24 16:57:00 Test Item Value Reference Range Interpretation Comments MPV (test code = MPV) 8.9 7.4-10.4 [facility] CenterEtdbdegSCPVCAYKQI4126-90-79 16:57:00 Test Item Value Reference Range Interpretation Comments RDW (test code = RDW) 15.8 11.5-14.5 [facility] CenterKxlxghdMGHMVFRGRZ2005-56-01 16:57:00 Test Item Value Reference Range Interpretation Comments Platelet (test code = Platelet) 271 133-450 [facility] CenterYsdpozbVFSPXJNNIO4536-56-96 16:57:00 Test Item Value Reference Range Interpretation Comments WBC (test code = WBC) 7.3 3.7-10.4 [facility] CenterMtxzkdyZUVCCGNPGX4474-56-57 16:57:00 Test Item Value Reference Range Interpretation Comments RBC (test code = RBC) 5.14 4.20-5.40 [facility] CenterOjenbqlRDYIYJXHOV8925-10-88 16:57:00 Test Item Value Reference Range Interpretation Comments MCV (test code = MCV) 77.9 80.0-98.0 [facility] CenterOfmknmfQXBREAJBAH2600-20-79 16:57:00 Test Item Value Reference Range Interpretation Comments MCH (test code = MCH) 23.9 pg 27.0-31.0 [facility] CenterGezzzezOMQCMTHVRC5642-63-15 16:57:00 Test Item Value Reference Range Interpretation Comments MCHC (test code = MCHC) 30.7 32.0-36.0 [facility] CenterVxoqweeCTJGHCCULM9778-18-96 16:57:00 Test Item Value Reference Range Interpretation Comments Hct (test code = Hct) 40.1 36.0-48.0 [facility] CenterFuglsoxWCRBQRZSPQ7658-76-91 16:57:00 Test Item Value Reference Range Interpretation Comments Hgb (test code = Hgb) 12.3 12.0-16.0 [facility]2015-12-18 10:58:00 Test Item Value Reference Range Interpretation Comments eGFR (test code = eGFR) 126 [facility]2015-12-18 10:58:00 Test Item Value Reference Range Interpretation Comments AST (test code = AST) 29 See_Comment [Auto mated message] The system which ge nerated this result transmit arvind reference range : <=37. The reference range was not used to interpr et this result as mario l/abnormal. [facility]2015-12-18 10:58:00 Test Item Value Reference Range Interpretation Comments Alk Phos (test code = Alk Phos) 86 39-136 [facility]2015-12-18 10:58:00 Test Item Value Reference Range Interpretation Comments Bili Total (test code = Bili Total) 0.3 0.2-1.3 [facility]2015-12-18 10:58:00 Test Item Value Reference Range Interpretation Comments ALT (test code = ALT) 50 See_Comment [Auto mated message] The system which ge nerated this result transmit arvind reference range : <=65. The reference range was not used to interpr et this result as mario l/abnormal. [facility]2015-12-18 10:58:00 Test Item Value Reference Range Interpretation Comments Sodium Lvl (test code = Sodium Lvl) 136 135-145 [facility]2015-12-18 10:58:00 Test Item Value Reference Range Interpretation Comments Potassium Lvl (test code = Potassium 4.0 3.5-5.1 Lvl) [facility]2015-12-18 10:58:00 Test Item Value Reference Range Interpretation Comments Creatinine Lvl (test code = Creatinine 0.62 0.50-1.40 Lvl) [facility]2015-12-18 10:58:00 Test Item Value Reference Range Interpretation Comments Glucose Lvl (test code = Glucose Lvl) 101 70-99 [facility]2015-12-18 10:58:00 Test Item Value Reference Range Interpretation Comments BUN (test code = BUN) 5 7-22 [facility]2015-12-18 10:58:00 Test Item Value Reference Range Interpretation Comments Total Protein (test code = Total 5.8 6.4-8.4 Protein) [facility]2015-12-18 10:58:00 Test Item Value Reference Range Interpretation Comments Albumin Lvl (test code = Albumin Lvl) 3.2 3.5-5.0 [facility]2015-12-18 10:58:00 Test Item Value Reference Range Interpretation Comments Chloride Lvl (test code = Chloride Lvl) 100 95-109 [facility]2015-12-18 10:58:00 Test Item Value Reference Range Interpretation Comments Calcium Lvl (test code = Calcium Lvl) 8.6 8.5-10.5 [facility]2015-12-18 10:58:00 Test Item Value Reference Range Interpretation Comments CO2 (test code = CO2) 27 24-32 [facility]2015-12-18 10:58:00 Test Item Value Reference Range Interpretation Comments B/C Ratio (test code = B/C Ratio) 8 6-25 [facility]2015-12-18 10:58:00 Test Item Value Reference Range Interpretation Comments Globulin (test code = Globulin) 2.6 2.0-4.0 [facility]2015-12-18 10:58:00 Test Item Value Reference Range Interpretation Comments A/G Ratio (test code = A/G Ratio) 1.2 0.7-1.6 [facility]2015-12-18 10:58:00 Test Item Value Reference Range Interpretation Comments AGAP (test code = AGAP) 13.0 10.0-20.0 [facility] CenterUybchrfAZLYEBKMYO3340-48-81 10:58:00 Test Item Value Reference Range Interpretation Comments Segs (test code = Segs) 74.2 45.0-75.0 [facility] CenterIslqtlfCOTNSBXVKM1499-45-05 10:58:00 Test Item Value Reference Range Interpretation Comments Lymphocytes (test code = Lymphocytes) 18.3 20.0-40.0 [facility] CenterGkaycbsXMBBSADCCP6939-49-20 10:58:00 Test Item Value Reference Range Interpretation Comments Monocytes (test code = Monocytes) 7.0 2.0-12.0 [facility] CenterMjtvfyxPMYANVFHLZ0089-32-13 10:58:00 Test Item Value Reference Range Interpretation Comments Basophils (test code = 0.3 See_Comment [Aut omated message] The Basophils) system which ge nerated this result tra nsmitted reference range : <=1.0. The reference r kat was not used to int erpret this result as normal/abnormal . [facility] CenterQwfnjaiEFWQTXUDPJ6335-42-57 10:58:00 Test Item Value Reference Range Interpretation Comments Segs-Bands # (test code = Segs-Bands #) 8.1 1.5-8.1 [facility] CenterZxtdhbeBYOSYIFKMN6922-70-23 10:58:00 Test Item Value Reference Range Interpretation Comments Eosinophils (test code = 0.2 See_Comment [A utomated message] The Eosinophils) system which ge nerated this result tra nsmitted reference range : <=4.0. The reference r kat was not used to int erpret this result as normal/abnormal . [facility] CenterAbvxahxYJNLBGIBCU0291-16-61 10:58:00 Test Item Value Reference Range Interpretation Comments Monocytes # (test code 0.8 See_Comment [Aut omated message] The = Monocytes #) system which generated this result tra nsmitted reference range : <=0.8. The reference r kat was not used to int erpret this result as normal/abnormal . [facility] CenterGrhlebkCJYYGSRHYV9805-04-37 10:58:00 Test Item Value Reference Range Interpretation Comments Lymphocytes # (test code = Lymphocytes 2.0 1.0-5.5 #) [facility] CenterQgttubwECMUMFTJJO5298-26-18 10:58:00 Test Item Value Reference Range Interpretation Comments Microcyte (test code = 1+ *ABN*(08/16/15 Microcyte) 4:58 AM) [facility] CenterXinixkbKLHDNDSYDR7718-15-36 10:58:00 Test Item Value Reference Range Interpretation Comments MPV (test code = MPV) 8.9 7.4-10.4 [facility] CenterTnsvbgoVYFOZRWKUJ1666-65-84 10:58:00 Test Item Value Reference Range Interpretation Comments MCV (test code = MCV) 77.3 80.0-98.0 [facility] CenterDdtgnleJEZSJGSBUZ3275-50-18 10:58:00 Test Item Value Reference Range Interpretation Comments Hgb (test code = Hgb) 11.9 12.0-16.0 [facility] CenterVoqcirgMMAOZWKHBS7593-01-33 10:58:00 Test Item Value Reference Range Interpretation Comments Hct (test code = Hct) 37.5 36.0-48.0 [facility] CenterHrdchcwLFKYZJLZUL7077-06-90 10:58:00 Test Item Value Reference Range Interpretation Comments MCH (test code = MCH) 24.5 pg 27.0-31.0 [facility] CenterPlwzvziAJZGCNKUYR7724-83-47 10:58:00 Test Item Value Reference Range Interpretation Comments RBC (test code = RBC) 4.85 4.20-5.40 [facility] CenterRxfxtomVIFRFKMKUJ5862-36-90 10:58:00 Test Item Value Reference Range Interpretation Comments WBC (test code = WBC) 10.9 3.7-10.4 [facility] CenterHcnitztGKHZMPWPTF1491-32-37 10:58:00 Test Item Value Reference Range Interpretation Comments RDW (test code = RDW) 15.9 11.5-14.5 [facility] CenterStpwewhKZQDRSLEEF4049-74-52 10:58:00 Test Item Value Reference Range Interpretation Comments MCHC (test code = MCHC) 31.7 32.0-36.0 [facility] CenterLgfeycnTCXASSLNUH9793-03-53 10:58:00 Test Item Value Reference Range Interpretation Comments Platelet (test code = Platelet) 242 133-450 [facility]2015-12-18 10:58:00 Test Item Value Reference Range Interpretation Comments eGFR (test code = eGFR) 126 [facility]2015-12-18 10:58:00 Test Item Value Reference Range Interpretation Comments AST (test code = AST) 29 See_Comment [Auto mated message] The system which ge nerated this result transmit arvind reference range : <=37. The reference range was not used to interpr et this result as mario l/abnormal. [facility]2015-12-18 10:58:00 Test Item Value Reference Range Interpretation Comments Alk Phos (test code = Alk Phos) 86 39-136 [facility]2015-12-18 10:58:00 Test Item Value Reference Range Interpretation Comments Bili Total (test code = Bili Total) 0.3 0.2-1.3 [facility]2015-12-18 10:58:00 Test Item Value Reference Range Interpretation Comments ALT (test code = ALT) 50 See_Comment [Auto mated message] The system which ge nerated this result transmit arvind reference range : <=65. The reference range was not used to interpr et this result as mario l/abnormal. [facility]2015-12-18 10:58:00 Test Item Value Reference Range Interpretation Comments Sodium Lvl (test code = Sodium Lvl) 136 135-145 [facility]2015-12-18 10:58:00 Test Item Value Reference Range Interpretation Comments Potassium Lvl (test code = Potassium 4.0 3.5-5.1 Lvl) [facility]2015-12-18 10:58:00 Test Item Value Reference Range Interpretation Comments Creatinine Lvl (test code = Creatinine 0.62 0.50-1.40 Lvl) [facility]2015-12-18 10:58:00 Test Item Value Reference Range Interpretation Comments Glucose Lvl (test code = Glucose Lvl) 101 70-99 [facility]2015-12-18 10:58:00 Test Item Value Reference Range Interpretation Comments BUN (test code = BUN) 5 7-22 [facility]2015-12-18 10:58:00 Test Item Value Reference Range Interpretation Comments Total Protein (test code = Total 5.8 6.4-8.4 Protein) [facility]2015-12-18 10:58:00 Test Item Value Reference Range Interpretation Comments Albumin Lvl (test code = Albumin Lvl) 3.2 3.5-5.0 [facility]2015-12-18 10:58:00 Test Item Value Reference Range Interpretation Comments Chloride Lvl (test code = Chloride Lvl) 100 95-109 [facility]2015-12-18 10:58:00 Test Item Value Reference Range Interpretation Comments Calcium Lvl (test code = Calcium Lvl) 8.6 8.5-10.5 [facility]2015-12-18 10:58:00 Test Item Value Reference Range Interpretation Comments CO2 (test code = CO2) 27 24-32 [facility]2015-12-18 10:58:00 Test Item Value Reference Range Interpretation Comments B/C Ratio (test code = B/C Ratio) 8 6-25 [facility]2015-12-18 10:58:00 Test Item Value Reference Range Interpretation Comments Globulin (test code = Globulin) 2.6 2.0-4.0 [facility]2015-12-18 10:58:00 Test Item Value Reference Range Interpretation Comments A/G Ratio (test code = A/G Ratio) 1.2 0.7-1.6 [facility]2015-12-18 10:58:00 Test Item Value Reference Range Interpretation Comments AGAP (test code = AGAP) 13.0 10.0-20.0 [facility] CenterUmydkjdSWAMMLYIIH3963-01-32 10:58:00 Test Item Value Reference Range Interpretation Comments Segs (test code = Segs) 74.2 45.0-75.0 [facility] CenterKgukendODRGHBEZBL0408-06-17 10:58:00 Test Item Value Reference Range Interpretation Comments Lymphocytes (test code = Lymphocytes) 18.3 20.0-40.0 [facility] CenterNkjufkwSWPBVYSWCY1189-84-11 10:58:00 Test Item Value Reference Range Interpretation Comments Monocytes (test code = Monocytes) 7.0 2.0-12.0 [facility] CenterTqoyisdKQAQPMWYXR2688-65-04 10:58:00 Test Item Value Reference Range Interpretation Comments Basophils (test code = 0.3 See_Comment [Aut omated message] The Basophils) system which ge nerated this result tra nsmitted reference range : <=1.0. The reference r kat was not used to int erpret this result as normal/abnormal . [facility] CenterXalixvnLYDDJAOEYU9078-34-82 10:58:00 Test Item Value Reference Range Interpretation Comments Segs-Bands # (test code = Segs-Bands #) 8.1 1.5-8.1 [facility] CenterWmtdbfoYFLMXNMRTP9032-66-32 10:58:00 Test Item Value Reference Range Interpretation Comments Eosinophils (test code = 0.2 See_Comment [A utomated message] The Eosinophils) system which ge nerated this result tra nsmitted reference range : <=4.0. The reference r kat was not used to int erpret this result as normal/abnormal . [facility] CenterRxjvisyNKGDSMCONI1024-87-29 10:58:00 Test Item Value Reference Range Interpretation Comments Monocytes # (test code 0.8 See_Comment [Aut omated message] The = Monocytes #) system which generated this result tra nsmitted reference range : <=0.8. The reference r kat was not used to int erpret this result as normal/abnormal . [facility] CenterSbrovnoHQARVYMQSU4093-40-92 10:58:00 Test Item Value Reference Range Interpretation Comments Lymphocytes # (test code = Lymphocytes 2.0 1.0-5.5 #) [facility] CenterJtqduyqFKARVBTZAN1611-33-57 10:58:00 Test Item Value Reference Range Interpretation Comments Microcyte (test code = 1+ *ABN*(08/16/15 Microcyte) 4:58 AM) [facility] CenterIevjbwkXMNPODMCKE0581-65-98 10:58:00 Test Item Value Reference Range Interpretation Comments MPV (test code = MPV) 8.9 7.4-10.4 [facility] CenterQzsxupeQZZRWJIEJW8020-68-81 10:58:00 Test Item Value Reference Range Interpretation Comments MCV (test code = MCV) 77.3 80.0-98.0 [facility] CenterTzcxokpHCSWGLUMJJ0272-17-19 10:58:00 Test Item Value Reference Range Interpretation Comments Hgb (test code = Hgb) 11.9 12.0-16.0 [facility] CenterTmwadzcHARWXGQLFB1566-88-30 10:58:00 Test Item Value Reference Range Interpretation Comments Hct (test code = Hct) 37.5 36.0-48.0 [facility] CenterWgzzbviIKDRPXCFKV6426-35-19 10:58:00 Test Item Value Reference Range Interpretation Comments MCH (test code = MCH) 24.5 pg 27.0-31.0 [facility] CenterSbjoyppUARUQYZGCC9258-21-39 10:58:00 Test Item Value Reference Range Interpretation Comments RBC (test code = RBC) 4.85 4.20-5.40 [facility] CenterWczxwamBZFJTNCRKV9677-49-48 10:58:00 Test Item Value Reference Range Interpretation Comments WBC (test code = WBC) 10.9 3.7-10.4 [facility] CenterWlsgalnQLEDLPCBYA3387-80-62 10:58:00 Test Item Value Reference Range Interpretation Comments RDW (test code = RDW) 15.9 11.5-14.5 [facility] CenterWuwxendYZPVGSDPKX9901-55-81 10:58:00 Test Item Value Reference Range Interpretation Comments MCHC (test code = MCHC) 31.7 32.0-36.0 [facility] CenterRsvwyjhLXUPLKTATZ2033-14-40 10:58:00 Test Item Value Reference Range Interpretation Comments Platelet (test code = Platelet) 242 133-450 [facility]2015-12-18 10:58:00 Test Item Value Reference Range Interpretation Comments eGFR (test code = eGFR) 126 [facility]2015-12-18 10:58:00 Test Item Value Reference Range Interpretation Comments AST (test code = AST) 29 See_Comment [Auto mated message] The system which ge nerated this result transmit arvind reference range : <=37. The reference range was not used to interpr et this result as mario l/abnormal. [facility]2015-12-18 10:58:00 Test Item Value Reference Range Interpretation Comments Alk Phos (test code = Alk Phos) 86 39-136 [facility]2015-12-18 10:58:00 Test Item Value Reference Range Interpretation Comments Bili Total (test code = Bili Total) 0.3 0.2-1.3 [facility]2015-12-18 10:58:00 Test Item Value Reference Range Interpretation Comments ALT (test code = ALT) 50 See_Comment [Auto mated message] The system which ge nerated this result transmit arvind reference range : <=65. The reference range was not used to interpr et this result as mario l/abnormal. [facility]2015-12-18 10:58:00 Test Item Value Reference Range Interpretation Comments Sodium Lvl (test code = Sodium Lvl) 136 135-145 [facility]2015-12-18 10:58:00 Test Item Value Reference Range Interpretation Comments Potassium Lvl (test code = Potassium 4.0 3.5-5.1 Lvl) [facility]2015-12-18 10:58:00 Test Item Value Reference Range Interpretation Comments Creatinine Lvl (test code = Creatinine 0.62 0.50-1.40 Lvl) [facility]2015-12-18 10:58:00 Test Item Value Reference Range Interpretation Comments Glucose Lvl (test code = Glucose Lvl) 101 70-99 [facility]2015-12-18 10:58:00 Test Item Value Reference Range Interpretation Comments BUN (test code = BUN) 5 7-22 [facility]2015-12-18 10:58:00 Test Item Value Reference Range Interpretation Comments Total Protein (test code = Total 5.8 6.4-8.4 Protein) [facility]2015-12-18 10:58:00 Test Item Value Reference Range Interpretation Comments Albumin Lvl (test code = Albumin Lvl) 3.2 3.5-5.0 [facility]2015-12-18 10:58:00 Test Item Value Reference Range Interpretation Comments Chloride Lvl (test code = Chloride Lvl) 100 95-109 [facility]2015-12-18 10:58:00 Test Item Value Reference Range Interpretation Comments Calcium Lvl (test code = Calcium Lvl) 8.6 8.5-10.5 [facility]2015-12-18 10:58:00 Test Item Value Reference Range Interpretation Comments CO2 (test code = CO2) 27 24-32 [facility]2015-12-18 10:58:00 Test Item Value Reference Range Interpretation Comments B/C Ratio (test code = B/C Ratio) 8 6-25 [facility]2015-12-18 10:58:00 Test Item Value Reference Range Interpretation Comments Globulin (test code = Globulin) 2.6 2.0-4.0 [facility]2015-12-18 10:58:00 Test Item Value Reference Range Interpretation Comments A/G Ratio (test code = A/G Ratio) 1.2 0.7-1.6 [facility]2015-12-18 10:58:00 Test Item Value Reference Range Interpretation Comments AGAP (test code = AGAP) 13.0 10.0-20.0 [facility] CenterZrqreliTHCSXJMILP5600-25-90 10:58:00 Test Item Value Reference Range Interpretation Comments Segs (test code = Segs) 74.2 45.0-75.0 [facility] CenterRyjcklyIGNXDKYIAA0197-87-78 10:58:00 Test Item Value Reference Range Interpretation Comments Lymphocytes (test code = Lymphocytes) 18.3 20.0-40.0 [facility] CenterVncoeijNJNTBGHBIX5786-97-32 10:58:00 Test Item Value Reference Range Interpretation Comments Monocytes (test code = Monocytes) 7.0 2.0-12.0 [facility] CenterCjgnpsqLZRAAHZEAF0194-25-77 10:58:00 Test Item Value Reference Range Interpretation Comments Basophils (test code = 0.3 See_Comment [Aut omated message] The Basophils) system which ge nerated this result tra nsmitted reference range : <=1.0. The reference r kat was not used to int erpret this result as normal/abnormal . [facility] CenterGzbvvtvLITWNLOORQ4680-43-13 10:58:00 Test Item Value Reference Range Interpretation Comments Segs-Bands # (test code = Segs-Bands #) 8.1 1.5-8.1 [facility] CenterXzlxurnNMUKKKDANW4114-63-71 10:58:00 Test Item Value Reference Range Interpretation Comments Eosinophils (test code = 0.2 See_Comment [A utomated message] The Eosinophils) system which ge nerated this result tra nsmitted reference range : <=4.0. The reference r kat was not used to int erpret this result as normal/abnormal . [facility] CenterLbgxwziULNSUOEFSZ6457-98-12 10:58:00 Test Item Value Reference Range Interpretation Comments Monocytes # (test code 0.8 See_Comment [Aut omated message] The = Monocytes #) system which generated this result tra nsmitted reference range : <=0.8. The reference r kat was not used to int erpret this result as normal/abnormal . [facility] CenterUsxhhrrUHTITGJKVB5980-59-60 10:58:00 Test Item Value Reference Range Interpretation Comments Lymphocytes # (test code = Lymphocytes 2.0 1.0-5.5 #) [facility] CenterSfpnwciGJPMWFLZHH4527-17-05 10:58:00 Test Item Value Reference Range Interpretation Comments Microcyte (test code = 1+ *ABN*(08/16/15 Microcyte) 4:58 AM) [facility] CenterQdjmzwxJIPHVFIPDQ3552-38-01 10:58:00 Test Item Value Reference Range Interpretation Comments MPV (test code = MPV) 8.9 7.4-10.4 [facility] CenterVbnfqpmRHZUDEGMTR8763-25-92 10:58:00 Test Item Value Reference Range Interpretation Comments MCV (test code = MCV) 77.3 80.0-98.0 [facility] CenterMcjfhyiNPJUKJUHQH4522-35-29 10:58:00 Test Item Value Reference Range Interpretation Comments Hgb (test code = Hgb) 11.9 12.0-16.0 [facility] CenterNewrdhzPXIFLZFJKD0919-19-35 10:58:00 Test Item Value Reference Range Interpretation Comments Hct (test code = Hct) 37.5 36.0-48.0 [facility] CenterKurtvipPZPPPBVGDT0902-61-89 10:58:00 Test Item Value Reference Range Interpretation Comments MCH (test code = MCH) 24.5 pg 27.0-31.0 [facility] CenterVqypjlgPZGAHLFBOE5034-94-21 10:58:00 Test Item Value Reference Range Interpretation Comments RBC (test code = RBC) 4.85 4.20-5.40 [facility] CenterUmglkprTPFDQRITRP4025-30-26 10:58:00 Test Item Value Reference Range Interpretation Comments WBC (test code = WBC) 10.9 3.7-10.4 [facility] CenterFtnkeveTVNLRVUORZ3890-25-58 10:58:00 Test Item Value Reference Range Interpretation Comments RDW (test code = RDW) 15.9 11.5-14.5 [facility] CenterDntakkwAHSMFZBVSA6126-31-14 10:58:00 Test Item Value Reference Range Interpretation Comments MCHC (test code = MCHC) 31.7 32.0-36.0 [facility] CenterFyuotfoQLMHBPFSBC3894-00-17 10:58:00 Test Item Value Reference Range Interpretation Comments Platelet (test code = Platelet) 242 133-450 [facility]2015-12-18 10:58:00 Test Item Value Reference Range Interpretation Comments eGFR (test code = eGFR) 126 [facility]2015-12-18 10:58:00 Test Item Value Reference Range Interpretation Comments AST (test code = AST) 29 See_Comment [Auto mated message] The system which ge nerated this result transmit arvind reference range : <=37. The reference range was not used to interpr et this result as mario l/abnormal. [facility]2015-12-18 10:58:00 Test Item Value Reference Range Interpretation Comments Alk Phos (test code = Alk Phos) 86 39-136 [facility]2015-12-18 10:58:00 Test Item Value Reference Range Interpretation Comments Bili Total (test code = Bili Total) 0.3 0.2-1.3 [facility]2015-12-18 10:58:00 Test Item Value Reference Range Interpretation Comments ALT (test code = ALT) 50 See_Comment [Auto mated message] The system which ge nerated this result transmit arvind reference range : <=65. The reference range was not used to interpr et this result as mario l/abnormal. [facility]2015-12-18 10:58:00 Test Item Value Reference Range Interpretation Comments Sodium Lvl (test code = Sodium Lvl) 136 135-145 [facility]2015-12-18 10:58:00 Test Item Value Reference Range Interpretation Comments Potassium Lvl (test code = Potassium 4.0 3.5-5.1 Lvl) [facility]2015-12-18 10:58:00 Test Item Value Reference Range Interpretation Comments Creatinine Lvl (test code = Creatinine 0.62 0.50-1.40 Lvl) [facility]2015-12-18 10:58:00 Test Item Value Reference Range Interpretation Comments Glucose Lvl (test code = Glucose Lvl) 101 70-99 [facility]2015-12-18 10:58:00 Test Item Value Reference Range Interpretation Comments BUN (test code = BUN) 5 7-22 [facility]2015-12-18 10:58:00 Test Item Value Reference Range Interpretation Comments Total Protein (test code = Total 5.8 6.4-8.4 Protein) [facility]2015-12-18 10:58:00 Test Item Value Reference Range Interpretation Comments Albumin Lvl (test code = Albumin Lvl) 3.2 3.5-5.0 [facility]2015-12-18 10:58:00 Test Item Value Reference Range Interpretation Comments Chloride Lvl (test code = Chloride Lvl) 100 95-109 [facility]2015-12-18 10:58:00 Test Item Value Reference Range Interpretation Comments Calcium Lvl (test code = Calcium Lvl) 8.6 8.5-10.5 [facility]2015-12-18 10:58:00 Test Item Value Reference Range Interpretation Comments CO2 (test code = CO2) 27 24-32 [facility]2015-12-18 10:58:00 Test Item Value Reference Range Interpretation Comments B/C Ratio (test code = B/C Ratio) 8 6-25 [facility]2015-12-18 10:58:00 Test Item Value Reference Range Interpretation Comments Globulin (test code = Globulin) 2.6 2.0-4.0 [facility]2015-12-18 10:58:00 Test Item Value Reference Range Interpretation Comments A/G Ratio (test code = A/G Ratio) 1.2 0.7-1.6 [facility]2015-12-18 10:58:00 Test Item Value Reference Range Interpretation Comments AGAP (test code = AGAP) 13.0 10.0-20.0 [facility] CenterDldfijjWGTPJXDQAG1143-56-32 10:58:00 Test Item Value Reference Range Interpretation Comments Segs (test code = Segs) 74.2 45.0-75.0 [facility] CenterBiqmbauQTLSYBLSUB3488-90-13 10:58:00 Test Item Value Reference Range Interpretation Comments Lymphocytes (test code = Lymphocytes) 18.3 20.0-40.0 [facility] CenterYpanuaeJVKTQTZLPE6392-41-45 10:58:00 Test Item Value Reference Range Interpretation Comments Monocytes (test code = Monocytes) 7.0 2.0-12.0 [facility] CenterTijohwfQTUVOSKRJF0528-81-30 10:58:00 Test Item Value Reference Range Interpretation Comments Basophils (test code = 0.3 See_Comment [Aut omated message] The Basophils) system which ge nerated this result tra nsmitted reference range : <=1.0. The reference r kat was not used to int erpret this result as normal/abnormal . [facility] CenterTlbnarvGFHQIXEUNM4506-29-45 10:58:00 Test Item Value Reference Range Interpretation Comments Segs-Bands # (test code = Segs-Bands #) 8.1 1.5-8.1 [facility] CenterEpokmmcKYHKUXTLAJ7865-52-89 10:58:00 Test Item Value Reference Range Interpretation Comments Eosinophils (test code = 0.2 See_Comment [A utomated message] The Eosinophils) system which ge nerated this result tra nsmitted reference range : <=4.0. The reference r kat was not used to int erpret this result as normal/abnormal . [facility] CenterEmafbdyNIWPCUVGYA1447-55-42 10:58:00 Test Item Value Reference Range Interpretation Comments Monocytes # (test code 0.8 See_Comment [Aut omated message] The = Monocytes #) system which generated this result tra nsmitted reference range : <=0.8. The reference r kat was not used to int erpret this result as normal/abnormal . [facility] CenterCxcytviKHCFPHUHVM3988-72-60 10:58:00 Test Item Value Reference Range Interpretation Comments Lymphocytes # (test code = Lymphocytes 2.0 1.0-5.5 #) [facility] CenterKqncbouGBRFWAHEKG2851-65-78 10:58:00 Test Item Value Reference Range Interpretation Comments Microcyte (test code = 1+ *ABN*(08/16/15 Microcyte) 4:58 AM) [facility] CenterUbqrgjeDFCTCFUQGN3628-81-02 10:58:00 Test Item Value Reference Range Interpretation Comments MPV (test code = MPV) 8.9 7.4-10.4 [facility] CenterCetonmvFLWNREHASZ4873-50-82 10:58:00 Test Item Value Reference Range Interpretation Comments MCV (test code = MCV) 77.3 80.0-98.0 [facility] CenterYcqayekOVCNGWLZFH1578-35-89 10:58:00 Test Item Value Reference Range Interpretation Comments Hgb (test code = Hgb) 11.9 12.0-16.0 [facility] CenterIwkqjusGVNPWPXVCH9106-11-59 10:58:00 Test Item Value Reference Range Interpretation Comments Hct (test code = Hct) 37.5 36.0-48.0 [facility] CenterYktodlqSLQLXGZVJK1266-63-76 10:58:00 Test Item Value Reference Range Interpretation Comments MCH (test code = MCH) 24.5 pg 27.0-31.0 [facility] CenterAdhugthCYNRYZQHPM6213-02-75 10:58:00 Test Item Value Reference Range Interpretation Comments RBC (test code = RBC) 4.85 4.20-5.40 [facility] CenterAnqjxtySIEZTLVORD3088-78-84 10:58:00 Test Item Value Reference Range Interpretation Comments WBC (test code = WBC) 10.9 3.7-10.4 [facility] CenterWrifxssQLUTSPISTH7540-97-86 10:58:00 Test Item Value Reference Range Interpretation Comments RDW (test code = RDW) 15.9 11.5-14.5 [facility] CenterWhhfeevJRHXEMAJRU9772-93-81 10:58:00 Test Item Value Reference Range Interpretation Comments MCHC (test code = MCHC) 31.7 32.0-36.0 [facility] CenterSfhmaqxUKPDQZEYUX0432-91-44 10:58:00 Test Item Value Reference Range Interpretation Comments Platelet (test code = Platelet) 242 133-450 [facility]2015-12-18 10:58:00 Test Item Value Reference Range Interpretation Comments eGFR (test code = eGFR) 126 [facility]2015-12-18 10:58:00 Test Item Value Reference Range Interpretation Comments AST (test code = AST) 29 See_Comment [Auto mated message] The system which ge nerated this result transmit arvind reference range : <=37. The reference range was not used to interpr et this result as mario l/abnormal. [facility]2015-12-18 10:58:00 Test Item Value Reference Range Interpretation Comments Alk Phos (test code = Alk Phos) 86 39-136 [facility]2015-12-18 10:58:00 Test Item Value Reference Range Interpretation Comments Bili Total (test code = Bili Total) 0.3 0.2-1.3 [facility]2015-12-18 10:58:00 Test Item Value Reference Range Interpretation Comments ALT (test code = ALT) 50 See_Comment [Auto mated message] The system which ge nerated this result transmit arvind reference range : <=65. The reference range was not used to interpr et this result as mario l/abnormal. [facility]2015-12-18 10:58:00 Test Item Value Reference Range Interpretation Comments Sodium Lvl (test code = Sodium Lvl) 136 135-145 [facility]2015-12-18 10:58:00 Test Item Value Reference Range Interpretation Comments Potassium Lvl (test code = Potassium 4.0 3.5-5.1 Lvl) [facility]2015-12-18 10:58:00 Test Item Value Reference Range Interpretation Comments Creatinine Lvl (test code = Creatinine 0.62 0.50-1.40 Lvl) [facility]2015-12-18 10:58:00 Test Item Value Reference Range Interpretation Comments Glucose Lvl (test code = Glucose Lvl) 101 70-99 [facility]2015-12-18 10:58:00 Test Item Value Reference Range Interpretation Comments BUN (test code = BUN) 5 7-22 [facility]2015-12-18 10:58:00 Test Item Value Reference Range Interpretation Comments Total Protein (test code = Total 5.8 6.4-8.4 Protein) [facility]2015-12-18 10:58:00 Test Item Value Reference Range Interpretation Comments Albumin Lvl (test code = Albumin Lvl) 3.2 3.5-5.0 [facility]2015-12-18 10:58:00 Test Item Value Reference Range Interpretation Comments Chloride Lvl (test code = Chloride Lvl) 100 95-109 [facility]2015-12-18 10:58:00 Test Item Value Reference Range Interpretation Comments Calcium Lvl (test code = Calcium Lvl) 8.6 8.5-10.5 [facility]2015-12-18 10:58:00 Test Item Value Reference Range Interpretation Comments CO2 (test code = CO2) 27 24-32 [facility]2015-12-18 10:58:00 Test Item Value Reference Range Interpretation Comments B/C Ratio (test code = B/C Ratio) 8 6-25 [facility]2015-12-18 10:58:00 Test Item Value Reference Range Interpretation Comments Globulin (test code = Globulin) 2.6 2.0-4.0 [facility]2015-12-18 10:58:00 Test Item Value Reference Range Interpretation Comments A/G Ratio (test code = A/G Ratio) 1.2 0.7-1.6 [facility]2015-12-18 10:58:00 Test Item Value Reference Range Interpretation Comments AGAP (test code = AGAP) 13.0 10.0-20.0 [facility] [id number] 10:58:00 Test Item Value Reference Range Interpretation Comments Segs (test code = Segs) 74.2 45.0-75.0 [facility] CenterYuduppyHBKGGUZDCK7781-43-36 10:58:00 Test Item Value Reference Range Interpretation Comments Lymphocytes (test code = Lymphocytes) 18.3 20.0-40.0 [facility] CenterWuoqkwaJDFKVXUSOG7033-06-19 10:58:00 Test Item Value Reference Range Interpretation Comments Monocytes (test code = Monocytes) 7.0 2.0-12.0 [facility] CenterRzcscpsCBAESAFXPB7338-93-04 10:58:00 Test Item Value Reference Range Interpretation Comments Basophils (test code = 0.3 See_Comment [Aut omated message] The Basophils) system which ge nerated this result tra nsmitted reference range : <=1.0. The reference r kat was not used to int erpret this result as normal/abnormal . [facility] CenterUcjilaxVBUERDBOTX3302-73-49 10:58:00 Test Item Value Reference Range Interpretation Comments Segs-Bands # (test code = Segs-Bands #) 8.1 1.5-8.1 [facility] CenterHmphvmeWWWHPLMVLB9462-63-74 10:58:00 Test Item Value Reference Range Interpretation Comments Eosinophils (test code = 0.2 See_Comment [A utomated message] The Eosinophils) system which ge nerated this result tra nsmitted reference range : <=4.0. The reference r kat was not used to int erpret this result as normal/abnormal . [facility] CenterLkdwcjhNAELTPXTSM3189-75-20 10:58:00 Test Item Value Reference Range Interpretation Comments Monocytes # (test code 0.8 See_Comment [Aut omated message] The = Monocytes #) system which generated this result tra nsmitted reference range : <=0.8. The reference r kat was not used to int erpret this result as normal/abnormal . [facility] CenterQrlxhraVRNIKGSEEP6353-78-95 10:58:00 Test Item Value Reference Range Interpretation Comments Lymphocytes # (test code = Lymphocytes 2.0 1.0-5.5 #) [facility] CenterOvdqaafUCOFBDEOSX5384-23-49 10:58:00 Test Item Value Reference Range Interpretation Comments Microcyte (test code = 1+ *ABN*(08/16/15 Microcyte) 4:58 AM) [facility] CenterVymhccvVMCMZLWPXE6283-27-68 10:58:00 Test Item Value Reference Range Interpretation Comments MPV (test code = MPV) 8.9 7.4-10.4 [facility] CenterOmmmufhLKUNFJSHOI1520-22-83 10:58:00 Test Item Value Reference Range Interpretation Comments MCV (test code = MCV) 77.3 80.0-98.0 [facility] CenterLmkghraUJMLTJKPTX7402-02-14 10:58:00 Test Item Value Reference Range Interpretation Comments Hgb (test code = Hgb) 11.9 12.0-16.0 [facility] CenterKapsedtEZXIPRSPUQ0062-81-42 10:58:00 Test Item Value Reference Range Interpretation Comments Hct (test code = Hct) 37.5 36.0-48.0 [facility] CenterOpscbvtNZRQGLITRK6193-63-81 10:58:00 Test Item Value Reference Range Interpretation Comments MCH (test code = MCH) 24.5 pg 27.0-31.0 [facility] CenterWunwwooXCSDOHGETY3476-14-69 10:58:00 Test Item Value Reference Range Interpretation Comments RBC (test code = RBC) 4.85 4.20-5.40 [facility] CenterKwfeofpIHMVYVNKDH5081-66-29 10:58:00 Test Item Value Reference Range Interpretation Comments WBC (test code = WBC) 10.9 3.7-10.4 [facility] CenterLepkudoVFINCUZBEE6746-70-13 10:58:00 Test Item Value Reference Range Interpretation Comments RDW (test code = RDW) 15.9 11.5-14.5 [facility] CenterYekzgndURZEOJPYKQ2616-89-63 10:58:00 Test Item Value Reference Range Interpretation Comments MCHC (test code = MCHC) 31.7 32.0-36.0 [facility] CenterFrqmbsoRJDFIZSDBF3721-53-69 10:58:00 Test Item Value Reference Range Interpretation Comments Platelet (test code = Platelet) 242 133-450 [facility]2015-12-18 10:58:00 Test Item Value Reference Range Interpretation Comments eGFR (test code = eGFR) 126 [facility]2015-12-18 10:58:00 Test Item Value Reference Range Interpretation Comments AST (test code = AST) 29 See_Comment [Auto mated message] The system which ge nerated this result transmit arvind reference range : <=37. The reference range was not used to interpr et this result as mario l/abnormal. [facility]2015-12-18 10:58:00 Test Item Value Reference Range Interpretation Comments Alk Phos (test code = Alk Phos) 86 39-136 [facility]2015-12-18 10:58:00 Test Item Value Reference Range Interpretation Comments Bili Total (test code = Bili Total) 0.3 0.2-1.3 [facility]2015-12-18 10:58:00 Test Item Value Reference Range Interpretation Comments ALT (test code = ALT) 50 See_Comment [Auto mated message] The system which ge nerated this result transmit arvind reference range : <=65. The reference range was not used to interpr et this result as mario l/abnormal. [facility]2015-12-18 10:58:00 Test Item Value Reference Range Interpretation Comments Sodium Lvl (test code = Sodium Lvl) 136 135-145 [facility]2015-12-18 10:58:00 Test Item Value Reference Range Interpretation Comments Potassium Lvl (test code = Potassium 4.0 3.5-5.1 Lvl) [facility]2015-12-18 10:58:00 Test Item Value Reference Range Interpretation Comments Creatinine Lvl (test code = Creatinine 0.62 0.50-1.40 Lvl) [facility]2015-12-18 10:58:00 Test Item Value Reference Range Interpretation Comments Glucose Lvl (test code = Glucose Lvl) 101 70-99 [facility]2015-12-18 10:58:00 Test Item Value Reference Range Interpretation Comments BUN (test code = BUN) 5 7-22 [facility]2015-12-18 10:58:00 Test Item Value Reference Range Interpretation Comments Total Protein (test code = Total 5.8 6.4-8.4 Protein) [facility]2015-12-18 10:58:00 Test Item Value Reference Range Interpretation Comments Albumin Lvl (test code = Albumin Lvl) 3.2 3.5-5.0 [facility]2015-12-18 10:58:00 Test Item Value Reference Range Interpretation Comments Chloride Lvl (test code = Chloride Lvl) 100 95-109 [facility]2015-12-18 10:58:00 Test Item Value Reference Range Interpretation Comments Calcium Lvl (test code = Calcium Lvl) 8.6 8.5-10.5 [facility]2015-12-18 10:58:00 Test Item Value Reference Range Interpretation Comments CO2 (test code = CO2) 27 24-32 [facility]2015-12-18 10:58:00 Test Item Value Reference Range Interpretation Comments B/C Ratio (test code = B/C Ratio) 8 6-25 [facility]2015-12-18 10:58:00 Test Item Value Reference Range Interpretation Comments Globulin (test code = Globulin) 2.6 2.0-4.0 [facility]2015-12-18 10:58:00 Test Item Value Reference Range Interpretation Comments A/G Ratio (test code = A/G Ratio) 1.2 0.7-1.6 [facility]2015-12-18 10:58:00 Test Item Value Reference Range Interpretation Comments AGAP (test code = AGAP) 13.0 10.0-20.0 [facility] CenterIzfsckcZYSJJJJXXH8904-96-71 10:58:00 Test Item Value Reference Range Interpretation Comments Segs (test code = Segs) 74.2 45.0-75.0 [facility] CenterQubphuqNHUXZYGSPW4805-00-35 10:58:00 Test Item Value Reference Range Interpretation Comments Lymphocytes (test code = Lymphocytes) 18.3 20.0-40.0 [facility] CenterWvnvyomAQXGPKLCHB9557-19-58 10:58:00 Test Item Value Reference Range Interpretation Comments Monocytes (test code = Monocytes) 7.0 2.0-12.0 [facility] CenterSqvudwpWBHWTTHKUN5786-47-63 10:58:00 Test Item Value Reference Range Interpretation Comments Basophils (test code = 0.3 See_Comment [Aut omated message] The Basophils) system which ge nerated this result tra nsmitted reference range : <=1.0. The reference r kat was not used to int erpret this result as normal/abnormal . [facility] CenterJxjatgaEUNLYSOKRH2510-99-33 10:58:00 Test Item Value Reference Range Interpretation Comments Segs-Bands # (test code = Segs-Bands #) 8.1 1.5-8.1 [facility] CenterMzpookeHOURVJMGSX0559-45-91 10:58:00 Test Item Value Reference Range Interpretation Comments Eosinophils (test code = 0.2 See_Comment [A utomated message] The Eosinophils) system which ge nerated this result tra nsmitted reference range : <=4.0. The reference r kat was not used to int erpret this result as normal/abnormal . [facility] CenterIipwchdBXNSFVUFAX1644-48-67 10:58:00 Test Item Value Reference Range Interpretation Comments Monocytes # (test code 0.8 See_Comment [Aut omated message] The = Monocytes #) system which generated this result tra nsmitted reference range : <=0.8. The reference r kat was not used to int erpret this result as normal/abnormal . [facility] CenterMdxxzylGAMBCBAKCO0352-53-65 10:58:00 Test Item Value Reference Range Interpretation Comments Lymphocytes # (test code = Lymphocytes 2.0 1.0-5.5 #) [facility] CenterPyorlgcYLUIKLHVQH7277-18-05 10:58:00 Test Item Value Reference Range Interpretation Comments Microcyte (test code = 1+ *ABN*(08/16/15 Microcyte) 4:58 AM) [facility] CenterJgufkxwVAEXTWWBQZ9593-83-00 10:58:00 Test Item Value Reference Range Interpretation Comments MPV (test code = MPV) 8.9 7.4-10.4 [facility] CenterKqmjkycTWKOLMLRDV5702-22-32 10:58:00 Test Item Value Reference Range Interpretation Comments MCV (test code = MCV) 77.3 80.0-98.0 [facility] CenterVvktmwqULFMSJCYQP1478-02-14 10:58:00 Test Item Value Reference Range Interpretation Comments Hgb (test code = Hgb) 11.9 12.0-16.0 [facility] CenterJrojfgaHLRMPTOYCW9177-69-41 10:58:00 Test Item Value Reference Range Interpretation Comments Hct (test code = Hct) 37.5 36.0-48.0 [facility] CenterUzbrjelVNFGFLPZOQ9567-73-08 10:58:00 Test Item Value Reference Range Interpretation Comments MCH (test code = MCH) 24.5 pg 27.0-31.0 [facility] CenterHqeuvvxDJFKUXWLQS0405-07-95 10:58:00 Test Item Value Reference Range Interpretation Comments RBC (test code = RBC) 4.85 4.20-5.40 [facility] CenterEbwezrlOJYNJSVYGL4821-20-29 10:58:00 Test Item Value Reference Range Interpretation Comments WBC (test code = WBC) 10.9 3.7-10.4 [facility] CenterLqzvejzGSRMUVTSFW7674-59-49 10:58:00 Test Item Value Reference Range Interpretation Comments RDW (test code = RDW) 15.9 11.5-14.5 [facility] CenterOcxtsknHTTMAJWOZA7131-14-75 10:58:00 Test Item Value Reference Range Interpretation Comments MCHC (test code = MCHC) 31.7 32.0-36.0 [facility] CenterGmhepfwHEGAJPEDJX7888-74-56 10:58:00 Test Item Value Reference Range Interpretation Comments Platelet (test code = Platelet) 242 133-450 [facility]2015-12-18 10:58:00 Test Item Value Reference Range Interpretation Comments eGFR (test code = eGFR) 126 [facility]2015-12-18 10:58:00 Test Item Value Reference Range Interpretation Comments AST (test code = AST) 29 See_Comment [Auto mated message] The system which ge nerated this result transmit arvind reference range : <=37. The reference range was not used to interpr et this result as mario l/abnormal. [facility]2015-12-18 10:58:00 Test Item Value Reference Range Interpretation Comments Alk Phos (test code = Alk Phos) 86 39-136 [facility]2015-12-18 10:58:00 Test Item Value Reference Range Interpretation Comments Bili Total (test code = Bili Total) 0.3 0.2-1.3 [facility]2015-12-18 10:58:00 Test Item Value Reference Range Interpretation Comments ALT (test code = ALT) 50 See_Comment [Auto mated message] The system which ge nerated this result transmit arvind reference range : <=65. The reference range was not used to interpr et this result as mario l/abnormal. [facility]2015-12-18 10:58:00 Test Item Value Reference Range Interpretation Comments Sodium Lvl (test code = Sodium Lvl) 136 135-145 [facility]2015-12-18 10:58:00 Test Item Value Reference Range Interpretation Comments Potassium Lvl (test code = Potassium 4.0 3.5-5.1 Lvl) [facility]2015-12-18 10:58:00 Test Item Value Reference Range Interpretation Comments Creatinine Lvl (test code = Creatinine 0.62 0.50-1.40 Lvl) [facility]2015-12-18 10:58:00 Test Item Value Reference Range Interpretation Comments Glucose Lvl (test code = Glucose Lvl) 101 70-99 [facility]2015-12-18 10:58:00 Test Item Value Reference Range Interpretation Comments BUN (test code = BUN) 5 7-22 [facility]2015-12-18 10:58:00 Test Item Value Reference Range Interpretation Comments Total Protein (test code = Total 5.8 6.4-8.4 Protein) [facility]2015-12-18 10:58:00 Test Item Value Reference Range Interpretation Comments Albumin Lvl (test code = Albumin Lvl) 3.2 3.5-5.0 [facility]2015-12-18 10:58:00 Test Item Value Reference Range Interpretation Comments Chloride Lvl (test code = Chloride Lvl) 100 95-109 [facility]2015-12-18 10:58:00 Test Item Value Reference Range Interpretation Comments Calcium Lvl (test code = Calcium Lvl) 8.6 8.5-10.5 [facility]2015-12-18 10:58:00 Test Item Value Reference Range Interpretation Comments CO2 (test code = CO2) 27 24-32 [facility]2015-12-18 10:58:00 Test Item Value Reference Range Interpretation Comments B/C Ratio (test code = B/C Ratio) 8 6-25 [facility]2015-12-18 10:58:00 Test Item Value Reference Range Interpretation Comments Globulin (test code = Globulin) 2.6 2.0-4.0 [facility]2015-12-18 10:58:00 Test Item Value Reference Range Interpretation Comments A/G Ratio (test code = A/G Ratio) 1.2 0.7-1.6 [facility]2015-12-18 10:58:00 Test Item Value Reference Range Interpretation Comments AGAP (test code = AGAP) 13.0 10.0-20.0 [facility] CenterGetwusoBOFTSCKYTR0477-40-80 10:58:00 Test Item Value Reference Range Interpretation Comments Segs (test code = Segs) 74.2 45.0-75.0 [facility] CenterKnxpitbINMLBFDBAI3923-91-54 10:58:00 Test Item Value Reference Range Interpretation Comments Lymphocytes (test code = Lymphocytes) 18.3 20.0-40.0 [facility] CenterZhxrfbeOUFROGMGPG7685-06-05 10:58:00 Test Item Value Reference Range Interpretation Comments Monocytes (test code = Monocytes) 7.0 2.0-12.0 [facility]2015-12-18 10:58:00 Test Item Value Reference Range Interpretation Comments eGFR (test code = eGFR) 126 [facility] CenterFoxpshyZGCRAWSHRE1197-60-76 10:58:00 Test Item Value Reference Range Interpretation Comments Basophils (test code = 0.3 See_Comment [Aut omated message] The Basophils) system which ge nerated this result tra nsmitted reference range : <=1.0. The reference r kat was not used to int erpret this result as normal/abnormal . [facility] CenterAwgojeqKPQQXNYRYU1388-55-84 10:58:00 Test Item Value Reference Range Interpretation Comments Segs-Bands # (test code = Segs-Bands #) 8.1 1.5-8.1 [facility] CenterIdkamykBRTJXQIEZX4060-32-90 10:58:00 Test Item Value Reference Range Interpretation Comments Eosinophils (test code = 0.2 See_Comment [A utomated message] The Eosinophils) system which ge nerated this result tra nsmitted reference range : <=4.0. The reference r kat was not used to int erpret this result as normal/abnormal . [facility] CenterNrfrjxuNOMWFXMRRR3877-50-42 10:58:00 Test Item Value Reference Range Interpretation Comments Monocytes # (test code 0.8 See_Comment [Aut omated message] The = Monocytes #) system which generated this result tra nsmitted reference range : <=0.8. The reference r kat was not used to int erpret this result as normal/abnormal . [facility] CenterAafinnsUTAEFPWHLK3154-52-08 10:58:00 Test Item Value Reference Range Interpretation Comments Lymphocytes # (test code = Lymphocytes 2.0 1.0-5.5 #) [facility] CenterPzxeqqjNPCMYMNICA3612-94-67 10:58:00 Test Item Value Reference Range Interpretation Comments Microcyte (test code = 1+ *ABN*(08/16/15 Microcyte) 4:58 AM) [facility] CenterJemkqrsGXBDOIEUZA6188-57-66 10:58:00 Test Item Value Reference Range Interpretation Comments MPV (test code = MPV) 8.9 7.4-10.4 [facility] CenterWhdougjWDYYQQKEPM1320-97-82 10:58:00 Test Item Value Reference Range Interpretation Comments MCV (test code = MCV) 77.3 80.0-98.0 [facility] CenterPxfysjoBGEKNANSQK1740-95-96 10:58:00 Test Item Value Reference Range Interpretation Comments Hgb (test code = Hgb) 11.9 12.0-16.0 [facility] CenterPrlvduxASYNTGHTWC7101-04-89 10:58:00 Test Item Value Reference Range Interpretation Comments Hct (test code = Hct) 37.5 36.0-48.0 [facility]2015-12-18 10:58:00 Test Item Value Reference Range Interpretation Comments AST (test code = AST) 29 See_Comment [Auto mated message] The system which ge nerated this result transmit arvind reference range : <=37. The reference range was not used to interpr et this result as mario l/abnormal. [facility] CenterWothqspKHOPFAULEE3963-31-83 10:58:00 Test Item Value Reference Range Interpretation Comments MCH (test code = MCH) 24.5 pg 27.0-31.0 [facility] CenterWoguqtoZHDTYLYSLM5243-37-57 10:58:00 Test Item Value Reference Range Interpretation Comments RBC (test code = RBC) 4.85 4.20-5.40 [facility] CenterYjwfkkkGPDOSNXOIO4850-57-93 10:58:00 Test Item Value Reference Range Interpretation Comments WBC (test code = WBC) 10.9 3.7-10.4 [facility] CenterEeaqavcYJYEIWUMUE5871-81-85 10:58:00 Test Item Value Reference Range Interpretation Comments RDW (test code = RDW) 15.9 11.5-14.5 [facility] CenterIokavhgAXVUZCPFSU9442-71-17 10:58:00 Test Item Value Reference Range Interpretation Comments MCHC (test code = MCHC) 31.7 32.0-36.0 [facility]po[facility]IB[facility]Z9651-81-09 10:58:00 Test Item Value Reference Range Interpretation Comments Platelet (test code = Platelet) 242 133-450 [facility]2015-12-18 10:58:00 Test Item Value Reference Range Interpretation Comments Alk Phos (test code = Alk Phos) 86 39-136 [facility]2015-12-18 10:58:00 Test Item Value Reference Range Interpretation Comments Bili Total (test code = Bili Total) 0.3 0.2-1.3 [facility]2015-12-18 10:58:00 Test Item Value Reference Range Interpretation Comments ALT (test code = ALT) 50 See_Comment [Auto mated message] The system which ge nerated this result transmit arvind reference range : <=65. The reference range was not used to interpr et this result as mario l/abnormal. [facility]2015-12-18 10:58:00 Test Item Value Reference Range Interpretation Comments Sodium Lvl (test code = Sodium Lvl) 136 135-145 [facility]2015-12-18 10:58:00 Test Item Value Reference Range Interpretation Comments Potassium Lvl (test code = Potassium 4.0 3.5-5.1 Lvl) [facility]2015-12-18 10:58:00 Test Item Value Reference Range Interpretation Comments Creatinine Lvl (test code = Creatinine 0.62 0.50-1.40 Lvl) [facility]2015-12-18 10:58:00 Test Item Value Reference Range Interpretation Comments Glucose Lvl (test code = Glucose Lvl) 101 70-99 [facility]2015-12-18 10:58:00 Test Item Value Reference Range Interpretation Comments BUN (test code = BUN) 5 7-22 [facility]2015-12-18 10:58:00 Test Item Value Reference Range Interpretation Comments Total Protein (test code = Total 5.8 6.4-8.4 Protein) [facility]2015-12-18 10:58:00 Test Item Value Reference Range Interpretation Comments Albumin Lvl (test code = Albumin Lvl) 3.2 3.5-5.0 [facility]2015-12-18 10:58:00 Test Item Value Reference Range Interpretation Comments Chloride Lvl (test code = Chloride Lvl) 100 95-109 [facility]2015-12-18 10:58:00 Test Item Value Reference Range Interpretation Comments Calcium Lvl (test code = Calcium Lvl) 8.6 8.5-10.5 [facility]2015-12-18 10:58:00 Test Item Value Reference Range Interpretation Comments CO2 (test code = CO2) 27 24-32 [facility]2015-12-18 10:58:00 Test Item Value Reference Range Interpretation Comments B/C Ratio (test code = B/C Ratio) 8 6-25 [facility]2015-12-18 10:58:00 Test Item Value Reference Range Interpretation Comments Globulin (test code = Globulin) 2.6 2.0-4.0 [facility]2015-12-18 10:58:00 Test Item Value Reference Range Interpretation Comments A/G Ratio (test code = A/G Ratio) 1.2 0.7-1.6 [facility]2015-12-18 10:58:00 Test Item Value Reference Range Interpretation Comments AGAP (test code = AGAP) 13.0 10.0-20.0 [facility] CenterSdoxduiWVCPUECXAR9132-56-47 10:58:00 Test Item Value Reference Range Interpretation Comments Segs (test code = Segs) 74.2 45.0-75.0 [facility] CenterUzzjeobPCNGXYPIDL3151-32-46 10:58:00 Test Item Value Reference Range Interpretation Comments Lymphocytes (test code = Lymphocytes) 18.3 20.0-40.0 [facility] CenterDhfpncuHFJVVCEGSH5695-14-78 10:58:00 Test Item Value Reference Range Interpretation Comments Monocytes (test code = Monocytes) 7.0 2.0-12.0 [facility] CenterTtutscvDZQBTXOVPV2570-05-18 10:58:00 Test Item Value Reference Range Interpretation Comments Basophils (test code = 0.3 See_Comment [Aut omated message] The Basophils) system which ge nerated this result tra nsmitted reference range : <=1.0. The reference r kat was not used to int erpret this result as normal/abnormal . [facility] CenterYygmsoqTQCWQTKNXD9075-32-22 10:58:00 Test Item Value Reference Range Interpretation Comments Segs-Bands # (test code = Segs-Bands #) 8.1 1.5-8.1 [facility] CenterZbmmqffDLZJAQMIJA6999-14-13 10:58:00 Test Item Value Reference Range Interpretation Comments Eosinophils (test code = 0.2 See_Comment [A utomated message] The Eosinophils) system which ge nerated this result tra nsmitted reference range : <=4.0. The reference r kat was not used to int erpret this result as normal/abnormal . [facility] CenterCrzhnixPUPTHAPMNH7046-55-97 10:58:00 Test Item Value Reference Range Interpretation Comments Monocytes # (test code 0.8 See_Comment [Aut omated message] The = Monocytes #) system which generated this result tra nsmitted reference range : <=0.8. The reference r kat was not used to int erpret this result as normal/abnormal . [facility] CenterHzmblojHANTQIHIGG3803-74-04 10:58:00 Test Item Value Reference Range Interpretation Comments Lymphocytes # (test code = Lymphocytes 2.0 1.0-5.5 #) [facility] CenterJvqvehtKZWLLDXAHN8954-30-68 10:58:00 Test Item Value Reference Range Interpretation Comments Microcyte (test code = 1+ *ABN*(08/16/15 Microcyte) 4:58 AM) [facility] CenterLylkhkdRNJNIIGCKW2338-62-44 10:58:00 Test Item Value Reference Range Interpretation Comments MPV (test code = MPV) 8.9 7.4-10.4 [facility] CenterNjpaspcSSPIPEIGIZ6330-00-31 10:58:00 Test Item Value Reference Range Interpretation Comments MCV (test code = MCV) 77.3 80.0-98.0 [facility] CenterKgnrhtbZLYUIZPAHJ3407-65-41 10:58:00 Test Item Value Reference Range Interpretation Comments Hgb (test code = Hgb) 11.9 12.0-16.0 [facility] CenterQiflrdqGZKBRPWKMS9354-02-81 10:58:00 Test Item Value Reference Range Interpretation Comments Hct (test code = Hct) 37.5 36.0-48.0 [facility] CenterBrzjggwMWOOLPQPXR5494-77-19 10:58:00 Test Item Value Reference Range Interpretation Comments MCH (test code = MCH) 24.5 pg 27.0-31.0 [facility] CenterXhavuxhZXFMBTNMGG2593-57-74 10:58:00 Test Item Value Reference Range Interpretation Comments RBC (test code = RBC) 4.85 4.20-5.40 [facility] CenterJlnuqrrKJGREADYCY0385-17-15 10:58:00 Test Item Value Reference Range Interpretation Comments WBC (test code = WBC) 10.9 3.7-10.4 [facility] CenterRupbrnsIRRLDEPWWV9566-64-05 10:58:00 Test Item Value Reference Range Interpretation Comments RDW (test code = RDW) 15.9 11.5-14.5 [facility] CenterLfrfttmOQZSRQOWLL0731-57-50 10:58:00 Test Item Value Reference Range Interpretation Comments MCHC (test code = MCHC) 31.7 32.0-36.0 [facility] CenterFdofpeqMLIVUZNZYH5412-91-01 10:58:00 Test Item Value Reference Range Interpretation Comments Platelet (test code = Platelet) 242 133-450 [facility]2015-12-18 10:58:00 Test Item Value Reference Range Interpretation Comments eGFR (test code = eGFR) 126 [facility]2015-12-18 10:58:00 Test Item Value Reference Range Interpretation Comments AST (test code = AST) 29 See_Comment [Auto mated message] The system which ge nerated this result transmit arvind reference range : <=37. The reference range was not used to interpr et this result as mario l/abnormal. [facility]2015-12-18 10:58:00 Test Item Value Reference Range Interpretation Comments Alk Phos (test code = Alk Phos) 86 39-136 [facility]2015-12-18 10:58:00 Test Item Value Reference Range Interpretation Comments Bili Total (test code = Bili Total) 0.3 0.2-1.3 [facility]2015-12-18 10:58:00 Test Item Value Reference Range Interpretation Comments ALT (test code = ALT) 50 See_Comment [Auto mated message] The system which ge nerated this result transmit arvind reference range : <=65. The reference range was not used to interpr et this result as mario l/abnormal. [facility]2015-12-18 10:58:00 Test Item Value Reference Range Interpretation Comments Sodium Lvl (test code = Sodium Lvl) 136 135-145 [facility]2015-12-18 10:58:00 Test Item Value Reference Range Interpretation Comments Potassium Lvl (test code = Potassium 4.0 3.5-5.1 Lvl) [facility]2015-12-18 10:58:00 Test Item Value Reference Range Interpretation Comments Creatinine Lvl (test code = Creatinine 0.62 0.50-1.40 Lvl) [facility]2015-12-18 10:58:00 Test Item Value Reference Range Interpretation Comments Glucose Lvl (test code = Glucose Lvl) 101 70-99 [facility]2015-12-18 10:58:00 Test Item Value Reference Range Interpretation Comments BUN (test code = BUN) 5 7-22 [facility]2015-12-18 10:58:00 Test Item Value Reference Range Interpretation Comments Total Protein (test code = Total 5.8 6.4-8.4 Protein) [facility]2015-12-18 10:58:00 Test Item Value Reference Range Interpretation Comments Albumin Lvl (test code = Albumin Lvl) 3.2 3.5-5.0 [facility]2015-12-18 10:58:00 Test Item Value Reference Range Interpretation Comments Chloride Lvl (test code = Chloride Lvl) 100 95-109 [facility]2015-12-18 10:58:00 Test Item Value Reference Range Interpretation Comments Calcium Lvl (test code = Calcium Lvl) 8.6 8.5-10.5 [facility]2015-12-18 10:58:00 Test Item Value Reference Range Interpretation Comments CO2 (test code = CO2) 27 24-32 [facility]2015-12-18 10:58:00 Test Item Value Reference Range Interpretation Comments B/C Ratio (test code = B/C Ratio) 8 6-25 [facility]2015-12-18 10:58:00 Test Item Value Reference Range Interpretation Comments Globulin (test code = Globulin) 2.6 2.0-4.0 [facility]2015-12-18 10:58:00 Test Item Value Reference Range Interpretation Comments A/G Ratio (test code = A/G Ratio) 1.2 0.7-1.6 [facility]2015-12-18 10:58:00 Test Item Value Reference Range Interpretation Comments AGAP (test code = AGAP) 13.0 10.0-20.0 [facility] CenterYzumjqqEFCFPMGODC1564-57-51 10:58:00 Test Item Value Reference Range Interpretation Comments Segs (test code = Segs) 74.2 45.0-75.0 [facility] CenterZduvfrnUGHJJYQOAZ1404-25-09 10:58:00 Test Item Value Reference Range Interpretation Comments Lymphocytes (test code = Lymphocytes) 18.3 20.0-40.0 [facility] CenterHgpbxxrQRJVCJQGMV7040-01-55 10:58:00 Test Item Value Reference Range Interpretation Comments Monocytes (test code = Monocytes) 7.0 2.0-12.0 [facility] CenterBdiifymOUMNAVVCTE0355-72-01 10:58:00 Test Item Value Reference Range Interpretation Comments Basophils (test code = 0.3 See_Comment [Aut omated message] The Basophils) system which ge nerated this result tra nsmitted reference range : <=1.0. The reference r kat was not used to int erpret this result as normal/abnormal . [facility] CenterYzpjnlrCZEVOTSHQW5354-40-19 10:58:00 Test Item Value Reference Range Interpretation Comments Segs-Bands # (test code = Segs-Bands #) 8.1 1.5-8.1 [facility] CenterMjcsgokHDRQGDMDZV2727-98-87 10:58:00 Test Item Value Reference Range Interpretation Comments Eosinophils (test code = 0.2 See_Comment [A utomated message] The Eosinophils) system which ge nerated this result tra nsmitted reference range : <=4.0. The reference r kat was not used to int erpret this result as normal/abnormal . [facility] CenterNnsyscaGFOOSASPKQ3899-74-72 10:58:00 Test Item Value Reference Range Interpretation Comments Monocytes # (test code 0.8 See_Comment [Aut omated message] The = Monocytes #) system which generated this result tra nsmitted reference range : <=0.8. The reference r kat was not used to int erpret this result as normal/abnormal . [facility] CenterOpvzcpqWTDJBBTANG5403-42-84 10:58:00 Test Item Value Reference Range Interpretation Comments Lymphocytes # (test code = Lymphocytes 2.0 1.0-5.5 #) [facility] CenterDicfclaXMXBOSQHXM9658-39-27 10:58:00 Test Item Value Reference Range Interpretation Comments Microcyte (test code = 1+ *ABN*(08/16/15 Microcyte) 4:58 AM) [facility] CenterGidutzuDPKNKESQII4717-15-64 10:58:00 Test Item Value Reference Range Interpretation Comments MPV (test code = MPV) 8.9 7.4-10.4 [facility] CenterVcwpzcgMWHEJUENFA3180-24-91 10:58:00 Test Item Value Reference Range Interpretation Comments MCV (test code = MCV) 77.3 80.0-98.0 [facility] CenterTmhylmcJUUTASONUX3233-88-86 10:58:00 Test Item Value Reference Range Interpretation Comments Hgb (test code = Hgb) 11.9 12.0-16.0 [facility] CenterIqxlgkdYIPDYGMITP3970-14-21 10:58:00 Test Item Value Reference Range Interpretation Comments Hct (test code = Hct) 37.5 36.0-48.0 [facility] CenterJhjssykQOGGJONTWV0486-83-55 10:58:00 Test Item Value Reference Range Interpretation Comments MCH (test code = MCH) 24.5 pg 27.0-31.0 [facility] CenterNqnapalODDRXZNRPL2766-61-07 10:58:00 Test Item Value Reference Range Interpretation Comments RBC (test code = RBC) 4.85 4.20-5.40 [facility] CenterYyqslcwTLSLNHWXUS2764-59-66 10:58:00 Test Item Value Reference Range Interpretation Comments WBC (test code = WBC) 10.9 3.7-10.4 [facility] CenterLutbzbrXOOKOCYEGT3655-90-99 10:58:00 Test Item Value Reference Range Interpretation Comments RDW (test code = RDW) 15.9 11.5-14.5 [facility] CenterGaudxfmGVLSLCDAKE6162-53-47 10:58:00 Test Item Value Reference Range Interpretation Comments MCHC (test code = MCHC) 31.7 32.0-36.0 [facility] CenterWsikubcJRAPXRDQRZ6079-08-81 10:58:00 Test Item Value Reference Range Interpretation Comments Platelet (test code = Platelet) 242 133-450 [facility]2015-12-18 10:58:00 Test Item Value Reference Range Interpretation Comments eGFR (test code = eGFR) 126 [facility]2015-12-18 10:58:00 Test Item Value Reference Range Interpretation Comments AST (test code = AST) 29 See_Comment [Auto mated message] The system which ge nerated this result transmit arvind reference range : <=37. The reference range was not used to interpr et this result as mario l/abnormal. [facility]2015-12-18 10:58:00 Test Item Value Reference Range Interpretation Comments Alk Phos (test code = Alk Phos) 86 39-136 [facility]2015-12-18 10:58:00 Test Item Value Reference Range Interpretation Comments Bili Total (test code = Bili Total) 0.3 0.2-1.3 [facility]2015-12-18 10:58:00 Test Item Value Reference Range Interpretation Comments ALT (test code = ALT) 50 See_Comment [Auto mated message] The system which ge nerated this result transmit arvind reference range : <=65. The reference range was not used to interpr et this result as mario l/abnormal. [facility]2015-12-18 10:58:00 Test Item Value Reference Range Interpretation Comments Sodium Lvl (test code = Sodium Lvl) 136 135-145 [facility]2015-12-18 10:58:00 Test Item Value Reference Range Interpretation Comments Potassium Lvl (test code = Potassium 4.0 3.5-5.1 Lvl) [facility]2015-12-18 10:58:00 Test Item Value Reference Range Interpretation Comments Creatinine Lvl (test code = Creatinine 0.62 0.50-1.40 Lvl) [facility]2015-12-18 10:58:00 Test Item Value Reference Range Interpretation Comments Glucose Lvl (test code = Glucose Lvl) 101 70-99 [facility]2015-12-18 10:58:00 Test Item Value Reference Range Interpretation Comments BUN (test code = BUN) 5 7-22 [facility]2015-12-18 10:58:00 Test Item Value Reference Range Interpretation Comments Total Protein (test code = Total 5.8 6.4-8.4 Protein) [facility]2015-12-18 10:58:00 Test Item Value Reference Range Interpretation Comments Albumin Lvl (test code = Albumin Lvl) 3.2 3.5-5.0 [facility]2015-12-18 10:58:00 Test Item Value Reference Range Interpretation Comments Chloride Lvl (test code = Chloride Lvl) 100 95-109 [facility]2015-12-18 10:58:00 Test Item Value Reference Range Interpretation Comments Calcium Lvl (test code = Calcium Lvl) 8.6 8.5-10.5 [facility]2015-12-18 10:58:00 Test Item Value Reference Range Interpretation Comments CO2 (test code = CO2) 27 24-32 [facility]2015-12-18 10:58:00 Test Item Value Reference Range Interpretation Comments B/C Ratio (test code = B/C Ratio) 8 6-25 [facility]2015-12-18 10:58:00 Test Item Value Reference Range Interpretation Comments Globulin (test code = Globulin) 2.6 2.0-4.0 [facility]2015-12-18 10:58:00 Test Item Value Reference Range Interpretation Comments A/G Ratio (test code = A/G Ratio) 1.2 0.7-1.6 [facility]2015-12-18 10:58:00 Test Item Value Reference Range Interpretation Comments AGAP (test code = AGAP) 13.0 10.0-20.0 [facility] CenterDdassjnKCVDHPWWZJ2868-44-81 10:58:00 Test Item Value Reference Range Interpretation Comments Segs (test code = Segs) 74.2 45.0-75.0 [facility] CenterQbihrjdEBGBPUTZOW3613-07-72 10:58:00 Test Item Value Reference Range Interpretation Comments Lymphocytes (test code = Lymphocytes) 18.3 20.0-40.0 [facility] CenterZlcvqdjERSZLYGOGY4139-07-15 10:58:00 Test Item Value Reference Range Interpretation Comments Monocytes (test code = Monocytes) 7.0 2.0-12.0 [facility] CenterTngjrdwGPFIBXPFRE4933-39-05 10:58:00 Test Item Value Reference Range Interpretation Comments Basophils (test code = 0.3 See_Comment [Aut omated message] The Basophils) system which ge nerated this result tra nsmitted reference range : <=1.0. The reference r kat was not used to int erpret this result as normal/abnormal . [facility] CenterLqyzgcwBOFSIISWXS4451-51-54 10:58:00 Test Item Value Reference Range Interpretation Comments Segs-Bands # (test code = Segs-Bands #) 8.1 1.5-8.1 [facility] CenterNaazqdpLNTJXXDOHM8630-48-39 10:58:00 Test Item Value Reference Range Interpretation Comments Eosinophils (test code = 0.2 See_Comment [A utomated message] The Eosinophils) system which ge nerated this result tra nsmitted reference range : <=4.0. The reference r kat was not used to int erpret this result as normal/abnormal . [facility] CenterIiimejzIORXLHQPUP3079-15-42 10:58:00 Test Item Value Reference Range Interpretation Comments Monocytes # (test code 0.8 See_Comment [Aut omated message] The = Monocytes #) system which generated this result tra nsmitted reference range : <=0.8. The reference r kat was not used to int erpret this result as normal/abnormal . [facility] CenterPptjhbnLWTBLPXPVW4047-69-99 10:58:00 Test Item Value Reference Range Interpretation Comments Lymphocytes # (test code = Lymphocytes 2.0 1.0-5.5 #) [facility] CenterDstihfdYBQSUOFSHW0321-88-83 10:58:00 Test Item Value Reference Range Interpretation Comments Microcyte (test code = 1+ *ABN*(08/16/15 Microcyte) 4:58 AM) [facility] CenterZlfmcfdRZLSCQGHIX2185-67-91 10:58:00 Test Item Value Reference Range Interpretation Comments MPV (test code = MPV) 8.9 7.4-10.4 [facility] CenterJakfwlhDHYGJYHIOG0457-27-04 10:58:00 Test Item Value Reference Range Interpretation Comments MCV (test code = MCV) 77.3 80.0-98.0 [facility] CenterVltwehcXZOMNSSMDM3056-58-67 10:58:00 Test Item Value Reference Range Interpretation Comments Hgb (test code = Hgb) 11.9 12.0-16.0 [facility] CenterTpucedrKRMVRMCHFY5554-12-19 10:58:00 Test Item Value Reference Range Interpretation Comments Hct (test code = Hct) 37.5 36.0-48.0 [facility] CenterZclgymdBSCDQTNZOI8387-97-03 10:58:00 Test Item Value Reference Range Interpretation Comments MCH (test code = MCH) 24.5 pg 27.0-31.0 [facility] CenterUzffoajYEHXEVLCDS5615-53-71 10:58:00 Test Item Value Reference Range Interpretation Comments RBC (test code = RBC) 4.85 4.20-5.40 [place] 845915-12-18 10:58:00 Test Item Value Reference Range Interpretation Comments WBC (test code = WBC) 10.9 3.7-10.4 [facility] CenterMlfcpdpQKBFYXCPOO8206-47-38 10:58:00 Test Item Value Reference Range Interpretation Comments RDW (test code = RDW) 15.9 11.5-14.5 [facility] CenterXklkmegRKAQSMIRII5548-46-23 10:58:00 Test Item Value Reference Range Interpretation Comments MCHC (test code = MCHC) 31.7 32.0-36.0 [facility] CenterXuzyjlmTGNEZKWLUX0601-13-53 10:58:00 Test Item Value Reference Range Interpretation Comments Platelet (test code = Platelet) 242 133-450 [facility]2015-12-18 10:58:00 Test Item Value Reference Range Interpretation Comments eGFR (test code = eGFR) 126 [facility]2015-12-18 10:58:00 Test Item Value Reference Range Interpretation Comments AST (test code = AST) 29 See_Comment [Auto mated message] The system which ge nerated this result transmit arvind reference range : <=37. The reference range was not used to interpr et this result as mario l/abnormal. [facility]2015-12-18 10:58:00 Test Item Value Reference Range Interpretation Comments Alk Phos (test code = Alk Phos) 86 39-136 [facility]2015-12-18 10:58:00 Test Item Value Reference Range Interpretation Comments Bili Total (test code = Bili Total) 0.3 0.2-1.3 [facility]2015-12-18 10:58:00 Test Item Value Reference Range Interpretation Comments ALT (test code = ALT) 50 See_Comment [Auto mated message] The system which ge nerated this result transmit arvind reference range : <=65. The reference range was not used to interpr et this result as mario l/abnormal. [facility]2015-12-18 10:58:00 Test Item Value Reference Range Interpretation Comments Sodium Lvl (test code = Sodium Lvl) 136 135-145 [facility]2015-12-18 10:58:00 Test Item Value Reference Range Interpretation Comments Potassium Lvl (test code = Potassium 4.0 3.5-5.1 Lvl) [facility]2015-12-18 10:58:00 Test Item Value Reference Range Interpretation Comments Creatinine Lvl (test code = Creatinine 0.62 0.50-1.40 Lvl) [facility]2015-12-18 10:58:00 Test Item Value Reference Range Interpretation Comments Glucose Lvl (test code = Glucose Lvl) 101 70-99 [facility]2015-12-18 10:58:00 Test Item Value Reference Range Interpretation Comments BUN (test code = BUN) 5 7-22 [facility]2015-12-18 10:58:00 Test Item Value Reference Range Interpretation Comments Total Protein (test code = Total 5.8 6.4-8.4 Protein) [facility]2015-12-18 10:58:00 Test Item Value Reference Range Interpretation Comments Albumin Lvl (test code = Albumin Lvl) 3.2 3.5-5.0 [facility]2015-12-18 10:58:00 Test Item Value Reference Range Interpretation Comments Chloride Lvl (test code = Chloride Lvl) 100 95-109 [facility]2015-12-18 10:58:00 Test Item Value Reference Range Interpretation Comments Calcium Lvl (test code = Calcium Lvl) 8.6 8.5-10.5 [facility]2015-12-18 10:58:00 Test Item Value Reference Range Interpretation Comments CO2 (test code = CO2) 27 24-32 [facility]2015-12-18 10:58:00 Test Item Value Reference Range Interpretation Comments B/C Ratio (test code = B/C Ratio) 8 6-25 [facility]2015-12-18 10:58:00 Test Item Value Reference Range Interpretation Comments Globulin (test code = Globulin) 2.6 2.0-4.0 [facility]2015-12-18 10:58:00 Test Item Value Reference Range Interpretation Comments A/G Ratio (test code = A/G Ratio) 1.2 0.7-1.6 [facility]2015-12-18 10:58:00 Test Item Value Reference Range Interpretation Comments AGAP (test code = AGAP) 13.0 10.0-20.0 [facility]TPIDCT7027-74[facility]75 10:58:00 Test Item Value Reference Range Interpretation Comments Segs (test code = Segs) 74.2 45.0-75.0 [facility] CenterQbrzuncCELQDAIXSP9033-81-73 10:58:00 Test Item Value Reference Range Interpretation Comments Lymphocytes (test code = Lymphocytes) 18.3 20.0-40.0 [facility] CenterTqhpthjGTSMZNIVKK4783-98-25 10:58:00 Test Item Value Reference Range Interpretation Comments Monocytes (test code = Monocytes) 7.0 2.0-12.0 [facility] CenterNsysvgcECXVJAXAXY0759-64-26 10:58:00 Test Item Value Reference Range Interpretation Comments Basophils (test code = 0.3 See_Comment [Aut omated message] The Basophils) system which ge nerated this result tra nsmitted reference range : <=1.0. The reference r kat was not used to int erpret this result as normal/abnormal . [facility] CenterGteixjmZTJEXTFTCL7225-01-52 10:58:00 Test Item Value Reference Range Interpretation Comments Segs-Bands # (test code = Segs-Bands #) 8.1 1.5-8.1 [facility] CenterYpjusrdEVDMDKWYFW2336-22-22 10:58:00 Test Item Value Reference Range Interpretation Comments Eosinophils (test code = 0.2 See_Comment [A utomated message] The Eosinophils) system which ge nerated this result tra nsmitted reference range : <=4.0. The reference r kat was not used to int erpret this result as normal/abnormal . [facility] CenterVicaurqGQHIMYBPZW3234-40-92 10:58:00 Test Item Value Reference Range Interpretation Comments Monocytes # (test code 0.8 See_Comment [Aut omated message] The = Monocytes #) system which generated this result tra nsmitted reference range : <=0.8. The reference r kat was not used to int erpret this result as normal/abnormal . [facility] CenterDnlllwmWYHNGDSRYT4796-89-59 10:58:00 Test Item Value Reference Range Interpretation Comments Lymphocytes # (test code = Lymphocytes 2.0 1.0-5.5 #) [facility] CenterOncxdrkGXYLFPBXUW1418-27-17 10:58:00 Test Item Value Reference Range Interpretation Comments Microcyte (test code = 1+ *ABN*(08/16/15 Microcyte) 4:58 AM) [facility] CenterXzpofnnVKCUQDHGEN4361-30-49 10:58:00 Test Item Value Reference Range Interpretation Comments MPV (test code = MPV) 8.9 7.4-10.4 [facility] CenterEhcxnzpWNOKCKFUWE7659-76-51 10:58:00 Test Item Value Reference Range Interpretation Comments MCV (test code = MCV) 77.3 80.0-98.0 [facility] CenterXatnhhdFWAKJWTKRN8228-54-80 10:58:00 Test Item Value Reference Range Interpretation Comments Hgb (test code = Hgb) 11.9 12.0-16.0 [facility] CenterVvskngsHZFSMOCUVJ6124-71-04 10:58:00 Test Item Value Reference Range Interpretation Comments Hct (test code = Hct) 37.5 36.0-48.0 [facility] CenterZixurclYBJZYFAIQD3363-78-46 10:58:00 Test Item Value Reference Range Interpretation Comments MCH (test code = MCH) 24.5 pg 27.0-31.0 [facility] CenterUddgotyDWFDODMNOQ8054-84-40 10:58:00 Test Item Value Reference Range Interpretation Comments RBC (test code = RBC) 4.85 4.20-5.40 [facility] CenterGjuicndIIZICSEMWC6185-14-28 10:58:00 Test Item Value Reference Range Interpretation Comments WBC (test code = WBC) 10.9 3.7-10.4 [facility] CenterClvanciTEDEHYRYKC8783-51-93 10:58:00 Test Item Value Reference Range Interpretation Comments RDW (test code = RDW) 15.9 11.5-14.5 [facility] CenterLwfhxolQCSLTLMYLV0612-18-99 10:58:00 Test Item Value Reference Range Interpretation Comments MCHC (test code = MCHC) 31.7 32.0-36.0 [facility] CenterRtalbmcWNVPYENMQY4346-83-28 10:58:00 Test Item Value Reference Range Interpretation Comments Platelet (test code = Platelet) 242 133-450 [facility]2015-12-18 10:58:00 Test Item Value Reference Range Interpretation Comments eGFR (test code = eGFR) 126 [facility] BPKUM8479-64-14 10:58:00 Test Item Value Reference Range Interpretation Comments AST (test code = AST) 29 See_Comment [Auto mated message] The system which ge nerated this result transmit arvind reference range : <=37. The reference range was not used to interpr et this result as mario l/abnormal. [facility]2015-12-18 10:58:00 Test Item Value Reference Range Interpretation Comments Alk Phos (test code = Alk Phos) 86 39-136 [facility]2015-12-18 10:58:00 Test Item Value Reference Range Interpretation Comments Bili Total (test code = Bili Total) 0.3 0.2-1.3 [facility]2015-12-18 10:58:00 Test Item Value Reference Range Interpretation Comments ALT (test code = ALT) 50 See_Comment [Auto mated message] The system which ge nerated this result transmit arvind reference range : <=65. The reference range was not used to interpr et this result as mario l/abnormal. [facility]2015-12-18 10:58:00 Test Item Value Reference Range Interpretation Comments Sodium Lvl (test code = Sodium Lvl) 136 135-145 [facility]2015-12-18 10:58:00 Test Item Value Reference Range Interpretation Comments Potassium Lvl (test code = Potassium 4.0 3.5-5.1 Lvl) [facility]2015-12-18 10:58:00 Test Item Value Reference Range Interpretation Comments Creatinine Lvl (test code = Creatinine 0.62 0.50-1.40 Lvl) [facility]2015-12-18 10:58:00 Test Item Value Reference Range Interpretation Comments Glucose Lvl (test code = Glucose Lvl) 101 70-99 [facility]2015-12-18 10:58:00 Test Item Value Reference Range Interpretation Comments BUN (test code = BUN) 5 7-22 [facility]2015-12-18 10:58:00 Test Item Value Reference Range Interpretation Comments Total Protein (test code = Total 5.8 6.4-8.4 Protein) [facility]2015-12-18 10:58:00 Test Item Value Reference Range Interpretation Comments Albumin Lvl (test code = Albumin Lvl) 3.2 3.5-5.0 [facility]2015-12-18 10:58:00 Test Item Value Reference Range Interpretation Comments Chloride Lvl (test code = Chloride Lvl) 100 95-109 [facility]2015-12-18 10:58:00 Test Item Value Reference Range Interpretation Comments Calcium Lvl (test code = Calcium Lvl) 8.6 8.5-10.5 [facility]2015-12-18 10:58:00 Test Item Value Reference Range Interpretation Comments CO2 (test code = CO2) 27 24-32 [facility]2015-12-18 10:58:00 Test Item Value Reference Range Interpretation Comments B/C Ratio (test code = B/C Ratio) 8 6-25 [facility]2015-12-18 10:58:00 Test Item Value Reference Range Interpretation Comments Globulin (test code = Globulin) 2.6 2.0-4.0 [facility]2015-12-18 10:58:00 Test Item Value Reference Range Interpretation Comments A/G Ratio (test code = A/G Ratio) 1.2 0.7-1.6 [facility]2015-12-18 10:58:00 Test Item Value Reference Range Interpretation Comments AGAP (test code = AGAP) 13.0 10.0-20.0 [facility] CenterPffulgoRJOIRPIMEJ9094-47-52 10:58:00 Test Item Value Reference Range Interpretation Comments Segs (test code = Segs) 74.2 45.0-75.0 [facility] CenterHbetaxePCCKBRHVBR1736-41-42 10:58:00 Test Item Value Reference Range Interpretation Comments Lymphocytes (test code = Lymphocytes) 18.3 20.0-40.0 [facility] CenterEfzsorlGISMTWLAPA2028-03-26 10:58:00 Test Item Value Reference Range Interpretation Comments Monocytes (test code = Monocytes) 7.0 2.0-12.0 [facility] CenterLihncqlZDFUNQBGLF9490-66-11 10:58:00 Test Item Value Reference Range Interpretation Comments Basophils (test code = 0.3 See_Comment [Aut omated message] The Basophils) system which ge nerated this result tra nsmitted reference range : <=1.0. The reference r kat was not used to int erpret this result as normal/abnormal . [facility] CenterYvjndboRVIUZWZEBO1874-91-06 10:58:00 Test Item Value Reference Range Interpretation Comments Segs-Bands # (test code = Segs-Bands #) 8.1 1.5-8.1 [facility] CenterXlwuohgCRTIKBBBXQ6717-48-16 10:58:00 Test Item Value Reference Range Interpretation Comments Eosinophils (test code = 0.2 See_Comment [A utomated message] The Eosinophils) system which ge nerated this result tra nsmitted reference range : <=4.0. The reference r kat was not used to int erpret this result as normal/abnormal . [facility] CenterJgeepkpWMZXVKXCJD1403-90-83 10:58:00 Test Item Value Reference Range Interpretation Comments Monocytes # (test code 0.8 See_Comment [Aut omated message] The = Monocytes #) system which generated this result tra nsmitted reference range : <=0.8. The reference r kat was not used to int erpret this result as normal/abnormal . [facility] CenterCuaspkdABGEHPKGXC1219-78-74 10:58:00 Test Item Value Reference Range Interpretation Comments Lymphocytes # (test code = Lymphocytes 2.0 1.0-5.5 #) [facility] CenterUjhcwhmEISXPKAOHX8855-49-06 10:58:00 Test Item Value Reference Range Interpretation Comments Microcyte (test code = 1+ *ABN*(08/16/15 Microcyte) 4:58 AM) [facility] CenterAqfvsymTSRETLCFRH0834-03-93 10:58:00 Test Item Value Reference Range Interpretation Comments MPV (test code = MPV) 8.9 7.4-10.4 [facility] CenterUxhhagjOCZDFFQUBC5991-80-36 10:58:00 Test Item Value Reference Range Interpretation Comments MCV (test code = MCV) 77.3 80.0-98.0 [facility] CenterMxajhrgBZKKPWJPUT8718-75-68 10:58:00 Test Item Value Reference Range Interpretation Comments Hgb (test code = Hgb) 11.9 12.0-16.0 [facility] CenterIxncjikPECDWMSFUG5447-00-60 10:58:00 Test Item Value Reference Range Interpretation Comments Hct (test code = Hct) 37.5 36.0-48.0 [facility] CenterYzfgbksQUTLIXTPYZ7436-14-68 10:58:00 Test Item Value Reference Range Interpretation Comments MCH (test code = MCH) 24.5 pg 27.0-31.0 [facility] CenterKkthquvFCLKWJLLZN6170-85-79 10:58:00 Test Item Value Reference Range Interpretation Comments RBC (test code = RBC) 4.85 4.20-5.40 [facility] CenterLoigobfDTGOBNTBYL9009-13-58 10:58:00 Test Item Value Reference Range Interpretation Comments WBC (test code = WBC) 10.9 3.7-10.4 [facility] CenterKeuebhcSUZNGJXVYT3589-71-44 10:58:00 Test Item Value Reference Range Interpretation Comments RDW (test code = RDW) 15.9 11.5-14.5 [facility] CenterGtviynrABMTFJZNCV8819-06-34 10:58:00 Test Item Value Reference Range Interpretation Comments MCHC (test code = MCHC) 31.7 32.0-36.0 [facility] CenterMdwnnuiICJQUZFMVI1976-96-82 10:58:00 Test Item Value Reference Range Interpretation Comments Platelet (test code = Platelet) 242 133-450 [facility]2015-12-18 10:58:00 Test Item Value Reference Range Interpretation Comments eGFR (test code = eGFR) 126 [facility]2015-12-18 10:58:00 Test Item Value Reference Range Interpretation Comments AST (test code = AST) 29 See_Comment [Auto mated message] The system which ge nerated this result transmit arvind reference range : <=37. The reference range was not used to interpr et this result as mario l/abnormal. [facility]2015-12-18 10:58:00 Test Item Value Reference Range Interpretation Comments Alk Phos (test code = Alk Phos) 86 39-136 [facility]2015-12-18 10:58:00 Test Item Value Reference Range Interpretation Comments Bili Total (test code = Bili Total) 0.3 0.2-1.3 [facility]2015-12-18 10:58:00 Test Item Value Reference Range Interpretation Comments ALT (test code = ALT) 50 See_Comment [Auto mated message] The system which ge nerated this result transmit arvind reference range : <=65. The reference range was not used to interpr et this result as mario l/abnormal. [facility]2015-12-18 10:58:00 Test Item Value Reference Range Interpretation Comments Sodium Lvl (test code = Sodium Lvl) 136 135-145 [facility]2015-12-18 10:58:00 Test Item Value Reference Range Interpretation Comments Potassium Lvl (test code = Potassium 4.0 3.5-5.1 Lvl) [facility]2015-12-18 10:58:00 Test Item Value Reference Range Interpretation Comments Creatinine Lvl (test code = Creatinine 0.62 0.50-1.40 Lvl) [facility]2015-12-18 10:58:00 Test Item Value Reference Range Interpretation Comments Glucose Lvl (test code = Glucose Lvl) 101 70-99 [facility]2015-12-18 10:58:00 Test Item Value Reference Range Interpretation Comments BUN (test code = BUN) 5 7-22 [facility]2015-12-18 10:58:00 Test Item Value Reference Range Interpretation Comments Total Protein (test code = Total 5.8 6.4-8.4 Protein) [facility]2015-12-18 10:58:00 Test Item Value Reference Range Interpretation Comments Albumin Lvl (test code = Albumin Lvl) 3.2 3.5-5.0 [facility]2015-12-18 10:58:00 Test Item Value Reference Range Interpretation Comments Chloride Lvl (test code = Chloride Lvl) 100 95-109 [facility]2015-12-18 10:58:00 Test Item Value Reference Range Interpretation Comments Calcium Lvl (test code = Calcium Lvl) 8.6 8.5-10.5 [facility]2015-12-18 10:58:00 Test Item Value Reference Range Interpretation Comments CO2 (test code = CO2) 27 24-32 [facility]2015-12-18 10:58:00 Test Item Value Reference Range Interpretation Comments B/C Ratio (test code = B/C Ratio) 8 6-25 [facility]2015-12-18 10:58:00 Test Item Value Reference Range Interpretation Comments Globulin (test code = Globulin) 2.6 2.0-4.0 [facility]2015-12-18 10:58:00 Test Item Value Reference Range Interpretation Comments A/G Ratio (test code = A/G Ratio) 1.2 0.7-1.6 [facility]2015-12-18 10:58:00 Test Item Value Reference Range Interpretation Comments AGAP (test code = AGAP) 13.0 10.0-20.0 [facility] CenterEcmgoxmTPMROFBYVA8372-19-60 10:58:00 Test Item Value Reference Range Interpretation Comments Segs (test code = Segs) 74.2 45.0-75.0 [facility] CenterTgtfygiLSMYNOZSDG9109-51-96 10:58:00 Test Item Value Reference Range Interpretation Comments Lymphocytes (test code = Lymphocytes) 18.3 20.0-40.0 [facility] CenterAozyawfRWZXWLIDOA3569-56-45 10:58:00 Test Item Value Reference Range Interpretation Comments Monocytes (test code = Monocytes) 7.0 2.0-12.0 [facility] CenterOblgwpoEDDBYTOYVG2565-83-44 10:58:00 Test Item Value Reference Range Interpretation Comments Basophils (test code = 0.3 See_Comment [Aut omated message] The Basophils) system which ge nerated this result tra nsmitted reference range : <=1.0. The reference r kat was not used to int erpret this result as normal/abnormal . [facility] CenterCfhtxuvYRDNSAPZQV8833-94-24 10:58:00 Test Item Value Reference Range Interpretation Comments Segs-Bands # (test code = Segs-Bands #) 8.1 1.5-8.1 [facility] CenterLqxbradPDTLLPINFN2545-13-72 10:58:00 Test Item Value Reference Range Interpretation Comments Eosinophils (test code = 0.2 See_Comment [A utomated message] The Eosinophils) system which ge nerated this result tra nsmitted reference range : <=4.0. The reference r kat was not used to int erpret this result as normal/abnormal . [facility] CenterRkboqoeTYPNJSMXRN2206-05-03 10:58:00 Test Item Value Reference Range Interpretation Comments Monocytes # (test code 0.8 See_Comment [Aut omated message] The = Monocytes #) system which generated this result tra nsmitted reference range : <=0.8. The reference r kat was not used to int erpret this result as normal/abnormal . [facility] CenterZshagvbSSFETWIMSJ2689-35-63 10:58:00 Test Item Value Reference Range Interpretation Comments Lymphocytes # (test code = Lymphocytes 2.0 1.0-5.5 #) [facility] CenterEsawmgcKCNNAVUUFA2811-86-07 10:58:00 Test Item Value Reference Range Interpretation Comments Microcyte (test code = 1+ *ABN*(08/16/15 Microcyte) 4:58 AM) [facility] CenterSgurigeVWNLSCWGUJ0997-53-37 10:58:00 Test Item Value Reference Range Interpretation Comments MPV (test code = MPV) 8.9 7.4-10.4 [facility] CenterJkxbapfIMSWOWAVCC4241-07-05 10:58:00 Test Item Value Reference Range Interpretation Comments MCV (test code = MCV) 77.3 80.0-98.0 [facility] CenterMslxqidVSOLYARWDZ9578-58-38 10:58:00 Test Item Value Reference Range Interpretation Comments Hgb (test code = Hgb) 11.9 12.0-16.0 [facility] CenterCqccefnJRODYBYGVF3391-15-28 10:58:00 Test Item Value Reference Range Interpretation Comments Hct (test code = Hct) 37.5 36.0-48.0 [facility] CenterYhccjooNKIKGZUHXW9758-46-74 10:58:00 Test Item Value Reference Range Interpretation Comments MCH (test code = MCH) 24.5 pg 27.0-31.0 [facility] CenterYuobauzWUUVNDVYTD1744-05-72 10:58:00 Test Item Value Reference Range Interpretation Comments RBC (test code = RBC) 4.85 4.20-5.40 [facility] CenterPvxkqqeJUAUDMGXZE2198-47-53 10:58:00 Test Item Value Reference Range Interpretation Comments WBC (test code = WBC) 10.9 3.7-10.4 [facility] CenterKddylknXGMUYIBYPE8325-93-29 10:58:00 Test Item Value Reference Range Interpretation Comments RDW (test code = RDW) 15.9 11.5-14.5 [facility] CenterHtgclqwMKCPKVUKVJ5959-52-98 10:58:00 Test Item Value Reference Range Interpretation Comments MCHC (test code = MCHC) 31.7 32.0-36.0 [facility] CenterExkgpqxGXSZNKIPHW0511-84-45 10:58:00 Test Item Value Reference Range Interpretation Comments Platelet (test code = Platelet) 242 133-450 [facility]2015-12-18 10:58:00 Test Item Value Reference Range Interpretation Comments eGFR (test code = eGFR) 126 [facility]2015-12-18 10:58:00 Test Item Value Reference Range Interpretation Comments AST (test code = AST) 29 See_Comment [Auto mated message] The system which ge nerated this result transmit arvind reference range : <=37. The reference range was not used to interpr et this result as mario l/abnormal. [facility]2015-12-18 10:58:00 Test Item Value Reference Range Interpretation Comments Alk Phos (test code = Alk Phos) 86 39-136 [facility]2015-12-18 10:58:00 Test Item Value Reference Range Interpretation Comments Bili Total (test code = Bili Total) 0.3 0.2-1.3 [facility]2015-12-18 10:58:00 Test Item Value Reference Range Interpretation Comments ALT (test code = ALT) 50 See_Comment [Auto mated message] The system which ge nerated this result transmit arvind reference range : <=65. The reference range was not used to interpr et this result as mario l/abnormal. [facility]2015-12-18 10:58:00 Test Item Value Reference Range Interpretation Comments Sodium Lvl (test code = Sodium Lvl) 136 135-145 [facility]2015-12-18 10:58:00 Test Item Value Reference Range Interpretation Comments Potassium Lvl (test code = Potassium 4.0 3.5-5.1 Lvl) [facility]2015-12-18 10:58:00 Test Item Value Reference Range Interpretation Comments Creatinine Lvl (test code = Creatinine 0.62 0.50-1.40 Lvl) [facility]2015-12-18 10:58:00 Test Item Value Reference Range Interpretation Comments Glucose Lvl (test code = Glucose Lvl) 101 70-99 [facility]2015-12-18 10:58:00 Test Item Value Reference Range Interpretation Comments BUN (test code = BUN) 5 7-22 [facility]2015-12-18 10:58:00 Test Item Value Reference Range Interpretation Comments Total Protein (test code = Total 5.8 6.4-8.4 Protein) [facility]2015-12-18 10:58:00 Test Item Value Reference Range Interpretation Comments Albumin Lvl (test code = Albumin Lvl) 3.2 3.5-5.0 [facility]2015-12-18 10:58:00 Test Item Value Reference Range Interpretation Comments Chloride Lvl (test code = Chloride Lvl) 100 95-109 [facility]2015-12-18 10:58:00 Test Item Value Reference Range Interpretation Comments Calcium Lvl (test code = Calcium Lvl) 8.6 8.5-10.5 [place] 610125-12-18 10:58:00 Test Item Value Reference Range Interpretation Comments CO2 (test code = CO2) 27 24-32 [facility]2015-12-18 10:58:00 Test Item Value Reference Range Interpretation Comments B/C Ratio (test code = B/C Ratio) 8 6-25 [facility]2015-12-18 10:58:00 Test Item Value Reference Range Interpretation Comments Globulin (test code = Globulin) 2.6 2.0-4.0 [facility]2015-12-18 10:58:00 Test Item Value Reference Range Interpretation Comments A/G Ratio (test code = A/G Ratio) 1.2 0.7-1.6 [facility]2015-12-18 10:58:00 Test Item Value Reference Range Interpretation Comments AGAP (test code = AGAP) 13.0 10.0-20.0 [facility] CenterZmmshcnYVHNKYRYKN0696-42-99 10:58:00 Test Item Value Reference Range Interpretation Comments Segs (test code = Segs) 74.2 45.0-75.0 [facility] CenterFvgvdflHNHOTLVODB5448-19-75 10:58:00 Test Item Value Reference Range Interpretation Comments Lymphocytes (test code = Lymphocytes) 18.3 20.0-40.0 [facility] CenterPjaqrfjZIMJMSHNAN5647-05-44 10:58:00 Test Item Value Reference Range Interpretation Comments Monocytes (test code = Monocytes) 7.0 2.0-12.0 [facility] CenterTomcaybGJLGYJPPHF3318-65-44 10:58:00 Test Item Value Reference Range Interpretation Comments Basophils (test code = 0.3 See_Comment [Aut omated message] The Basophils) system which ge nerated this result tra nsmitted reference range : <=1.0. The reference r kat was not used to int erpret this result as normal/abnormal . [facility] CenterOcfyhozYHLWXCXJTY5699-13-27 10:58:00 Test Item Value Reference Range Interpretation Comments Segs-Bands # (test code = Segs-Bands #) 8.1 1.5-8.1 [facility] CenterBwahkjkWBFWAVABUQ6334-72-36 10:58:00 Test Item Value Reference Range Interpretation Comments Eosinophils (test code = 0.2 See_Comment [A utomated message] The Eosinophils) system which ge nerated this result tra nsmitted reference range : <=4.0. The reference r kat was not used to int erpret this result as normal/abnormal . [facility] CenterBozlelbOEBTGBJXTE3042-17-06 10:58:00 Test Item Value Reference Range Interpretation Comments Monocytes # (test code 0.8 See_Comment [Aut omated message] The = Monocytes #) system which generated this result tra nsmitted reference range : <=0.8. The reference r kat was not used to int erpret this result as normal/abnormal . [facility] CenterUxzlseiSJOXRXFYRI0785-20-15 10:58:00 Test Item Value Reference Range Interpretation Comments Lymphocytes # (test code = Lymphocytes 2.0 1.0-5.5 #) [facility] CenterPmmaymyPVEEWOBZXF9600-69-79 10:58:00 Test Item Value Reference Range Interpretation Comments Microcyte (test code = 1+ *ABN*(08/16/15 Microcyte) 4:58 AM) [facility] CenterIlqpwqkRTFPMGVWVF4471-72-88 10:58:00 Test Item Value Reference Range Interpretation Comments MPV (test code = MPV) 8.9 7.4-10.4 [facility] CenterQiwviacQXFTOGIWXP8668-62-27 10:58:00 Test Item Value Reference Range Interpretation Comments MCV (test code = MCV) 77.3 80.0-98.0 [facility] CenterHujswjhVEADFTAVBF4417-42-49 10:58:00 Test Item Value Reference Range Interpretation Comments Hgb (test code = Hgb) 11.9 12.0-16.0 [facility] CenterWuphxjbSOVAFRTKDM6966-46-75 10:58:00 Test Item Value Reference Range Interpretation Comments Hct (test code = Hct) 37.5 36.0-48.0 [facility] CenterHojchgpVHVMITRIKU6504-70-73 10:58:00 Test Item Value Reference Range Interpretation Comments MCH (test code = MCH) 24.5 pg 27.0-31.0 [facility] CenterEhojvoyOKFFREOEED6833-66-33 10:58:00 Test Item Value Reference Range Interpretation Comments RBC (test code = RBC) 4.85 4.20-5.40 [facility] CenterHknifyzSXXIYZBQUG7050-92-44 10:58:00 Test Item Value Reference Range Interpretation Comments WBC (test code = WBC) 10.9 3.7-10.4 [facility] CenterQnqjiceBPPVLTKFMO2436-49-59 10:58:00 Test Item Value Reference Range Interpretation Comments RDW (test code = RDW) 15.9 11.5-14.5 [facility] CenterBfofjyiXSZGSAWLAR2316-31-43 10:58:00 Test Item Value Reference Range Interpretation Comments MCHC (test code = MCHC) 31.7 32.0-36.0 [facility] CenterYfejgxmMBEHTEFNSS4322-17-91 10:58:00 Test Item Value Reference Range Interpretation Comments Platelet (test code = Platelet) 242 133-450 [facility]2015-12-18 10:58:00 Test Item Value Reference Range Interpretation Comments eGFR (test code = eGFR) 126 [facility]2015-12-18 10:58:00 Test Item Value Reference Range Interpretation Comments AST (test code = AST) 29 See_Comment [Auto mated message] The system which ge nerated this result transmit arvind reference range : <=37. The reference range was not used to interpr et this result as mario l/abnormal. [facility]2015-12-18 10:58:00 Test Item Value Reference Range Interpretation Comments Alk Phos (test code = Alk Phos) 86 39-136 [facility]2015-12-18 10:58:00 Test Item Value Reference Range Interpretation Comments Bili Total (test code = Bili Total) 0.3 0.2-1.3 [facility]2015-12-18 10:58:00 Test Item Value Reference Range Interpretation Comments ALT (test code = ALT) 50 See_Comment [Auto mated message] The system which ge nerated this result transmit arvind reference range : <=65. The reference range was not used to interpr et this result as mario l/abnormal. [facility]2015-12-18 10:58:00 Test Item Value Reference Range Interpretation Comments Sodium Lvl (test code = Sodium Lvl) 136 135-145 [facility]2015-12-18 10:58:00 Test Item Value Reference Range Interpretation Comments Potassium Lvl (test code = Potassium 4.0 3.5-5.1 Lvl) [facility]2015-12-18 10:58:00 Test Item Value Reference Range Interpretation Comments Creatinine Lvl (test code = Creatinine 0.62 0.50-1.40 Lvl) [place] 610125-12-18 10:58:00 Test Item Value Reference Range Interpretation Comments Glucose Lvl (test code = Glucose Lvl) 101 70-99 [facility]2015-12-18 10:58:00 Test Item Value Reference Range Interpretation Comments BUN (test code = BUN) 5 7-22 [facility]2015-12-18 10:58:00 Test Item Value Reference Range Interpretation Comments Total Protein (test code = Total 5.8 6.4-8.4 Protein) [facility]2015-12-18 10:58:00 Test Item Value Reference Range Interpretation Comments Albumin Lvl (test code = Albumin Lvl) 3.2 3.5-5.0 [facility]2015-12-18 10:58:00 Test Item Value Reference Range Interpretation Comments Chloride Lvl (test code = Chloride Lvl) 100 95-109 [facility]2015-12-18 10:58:00 Test Item Value Reference Range Interpretation Comments Calcium Lvl (test code = Calcium Lvl) 8.6 8.5-10.5 [facility]2015-12-18 10:58:00 Test Item Value Reference Range Interpretation Comments CO2 (test code = CO2) 27 24-32 [facility]2015-12-18 10:58:00 Test Item Value Reference Range Interpretation Comments B/C Ratio (test code = B/C Ratio) 8 6-25 [facility]2015-12-18 10:58:00 Test Item Value Reference Range Interpretation Comments Globulin (test code = Globulin) 2.6 2.0-4.0 [facility]2015-12-18 10:58:00 Test Item Value Reference Range Interpretation Comments A/G Ratio (test code = A/G Ratio) 1.2 0.7-1.6 [facility]2015-12-18 10:58:00 Test Item Value Reference Range Interpretation Comments AGAP (test code = AGAP) 13.0 10.0-20.0 [facility] CenterJuslohwGYNXNPPFSO7367-97-50 10:58:00 Test Item Value Reference Range Interpretation Comments Segs (test code = Segs) 74.2 45.0-75.0 [facility] CenterVneyokpXTYYUEYVVT3894-10-08 10:58:00 Test Item Value Reference Range Interpretation Comments Lymphocytes (test code = Lymphocytes) 18.3 20.0-40.0 [facility] CenterGanfrjaXXEGNNZWQZ5039-00-06 10:58:00 Test Item Value Reference Range Interpretation Comments Monocytes (test code = Monocytes) 7.0 2.0-12.0 [facility] CenterUswtbtvBYAXIUCMAP0965-93-16 10:58:00 Test Item Value Reference Range Interpretation Comments Basophils (test code = 0.3 See_Comment [Aut omated message] The Basophils) system which ge nerated this result tra nsmitted reference range : <=1.0. The reference r kat was not used to int erpret this result as normal/abnormal . [facility] CenterHxuisoiJJWIIBHVOL0214-49-08 10:58:00 Test Item Value Reference Range Interpretation Comments Segs-Bands # (test code = Segs-Bands #) 8.1 1.5-8.1 [facility] CenterXnduzdsGGGMKVJDWK5587-02-71 10:58:00 Test Item Value Reference Range Interpretation Comments Eosinophils (test code = 0.2 See_Comment [A utomated message] The Eosinophils) system which ge nerated this result tra nsmitted reference range : <=4.0. The reference r kat was not used to int erpret this result as normal/abnormal . [facility] CenterMtkorymNXTQXYPDJQ0002-92-98 10:58:00 Test Item Value Reference Range Interpretation Comments Monocytes # (test code 0.8 See_Comment [Aut omated message] The = Monocytes #) system which generated this result tra nsmitted reference range : <=0.8. The reference r kat was not used to int erpret this result as normal/abnormal . [facility] CenterZsxufbrZYBENDOCED7200-05-58 10:58:00 Test Item Value Reference Range Interpretation Comments Lymphocytes # (test code = Lymphocytes 2.0 1.0-5.5 #) [facility] CenterQixwziaWULURJUMTC0487-54-00 10:58:00 Test Item Value Reference Range Interpretation Comments Microcyte (test code = 1+ *ABN*(08/16/15 Microcyte) 4:58 AM) [facility] CenterUxeorolIRCVWRKICX7225-85-89 10:58:00 Test Item Value Reference Range Interpretation Comments MPV (test code = MPV) 8.9 7.4-10.4 [facility] CenterYodjfbfDDCTHJWWSW9501-06-25 10:58:00 Test Item Value Reference Range Interpretation Comments MCV (test code = MCV) 77.3 80.0-98.0 [facility] CenterAanvhhdTQKBYCLDBC6464-05-39 10:58:00 Test Item Value Reference Range Interpretation Comments Hgb (test code = Hgb) 11.9 12.0-16.0 [facility] CenterKytobsxNUDYJVOUUV0451-22-66 10:58:00 Test Item Value Reference Range Interpretation Comments Hct (test code = Hct) 37.5 36.0-48.0 [facility] CenterRistrylNQVZYEAYUW5373-69-82 10:58:00 Test Item Value Reference Range Interpretation Comments MCH (test code = MCH) 24.5 pg 27.0-31.0 [facility] CenterIdbvmfhIDESXTHCVY2179-14-09 10:58:00 Test Item Value Reference Range Interpretation Comments RBC (test code = RBC) 4.85 4.20-5.40 [facility] CenterYwfqcbyDIPQMWCACG0816-39-45 10:58:00 Test Item Value Reference Range Interpretation Comments WBC (test code = WBC) 10.9 3.7-10.4 [facility] CenterGcmgueuGHUHUYOCCA9259-05-37 10:58:00 Test Item Value Reference Range Interpretation Comments RDW (test code = RDW) 15.9 11.5-14.5 [facility] CenterVmpdwedSHCLIUVDTR7089-63-32 10:58:00 Test Item Value Reference Range Interpretation Comments MCHC (test code = MCHC) 31.7 32.0-36.0 [facility] CenterIdhdgmyJLBHEAAUEP2419-67-77 10:58:00 Test Item Value Reference Range Interpretation Comments Platelet (test code = Platelet) 242 133-450 [facility]2015-12-18 10:58:00 Test Item Value Reference Range Interpretation Comments eGFR (test code = eGFR) 126 [facility]2015-12-18 10:58:00 Test Item Value Reference Range Interpretation Comments AST (test code = AST) 29 See_Comment [Auto mated message] The system which ge nerated this result transmit arvind reference range : <=37. The reference range was not used to interpr et this result as mario l/abnormal. [facility]2015-12-18 10:58:00 Test Item Value Reference Range Interpretation Comments Alk Phos (test code = Alk Phos) 86 39-136 [facility]2015-12-18 10:58:00 Test Item Value Reference Range Interpretation Comments Bili Total (test code = Bili Total) 0.3 0.2-1.3 [facility]2015-12-18 10:58:00 Test Item Value Reference Range Interpretation Comments ALT (test code = ALT) 50 See_Comment [Auto mated message] The system which ge nerated this result transmit arvind reference range : <=65. The reference range was not used to interpr et this result as mario l/abnormal. [facility]2015-12-18 10:58:00 Test Item Value Reference Range Interpretation Comments Sodium Lvl (test code = Sodium Lvl) 136 135-145 [facility]2015-12-18 10:58:00 Test Item Value Reference Range Interpretation Comments Potassium Lvl (test code = Potassium 4.0 3.5-5.1 Lvl) [facility]2015-12-18 10:58:00 Test Item Value Reference Range Interpretation Comments Creatinine Lvl (test code = Creatinine 0.62 0.50-1.40 Lvl) [facility]2015-12-18 10:58:00 Test Item Value Reference Range Interpretation Comments Glucose Lvl (test code = Glucose Lvl) 101 70-99 [facility]2015-12-18 10:58:00 Test Item Value Reference Range Interpretation Comments BUN (test code = BUN) 5 7-22 [facility]2015-12-18 10:58:00 Test Item Value Reference Range Interpretation Comments Total Protein (test code = Total 5.8 6.4-8.4 Protein) [facility]2015-12-18 10:58:00 Test Item Value Reference Range Interpretation Comments Albumin Lvl (test code = Albumin Lvl) 3.2 3.5-5.0 [facility]2015-12-18 10:58:00 Test Item Value Reference Range Interpretation Comments Chloride Lvl (test code = Chloride Lvl) 100 95-109 [facility]2015-12-18 10:58:00 Test Item Value Reference Range Interpretation Comments Calcium Lvl (test code = Calcium Lvl) 8.6 8.5-10.5 [facility]2015-12-18 10:58:00 Test Item Value Reference Range Interpretation Comments CO2 (test code = CO2) 27 24-32 [facility]2015-12-18 10:58:00 Test Item Value Reference Range Interpretation Comments B/C Ratio (test code = B/C Ratio) 8 6-25 [facility]2015-12-18 10:58:00 Test Item Value Reference Range Interpretation Comments Globulin (test code = Globulin) 2.6 2.0-4.0 [facility]2015-12-18 10:58:00 Test Item Value Reference Range Interpretation Comments A/G Ratio (test code = A/G Ratio) 1.2 0.7-1.6 [facility]2015-12-18 10:58:00 Test Item Value Reference Range Interpretation Comments AGAP (test code = AGAP) 13.0 10.0-20.0 [facility] CenterScbpediSPDQVVPAKL8511-13-42 10:58:00 Test Item Value Reference Range Interpretation Comments Segs (test code = Segs) 74.2 45.0-75.0 [facility] CenterXgxadraEVGQPRECSI9458-20-17 10:58:00 Test Item Value Reference Range Interpretation Comments Lymphocytes (test code = Lymphocytes) 18.3 20.0-40.0 [facility] CenterTotpmntBTMJMCXLOJ0035-21-37 10:58:00 Test Item Value Reference Range Interpretation Comments Monocytes (test code = Monocytes) 7.0 2.0-12.0 [facility] CenterHgaqbrdNQTPRLPCJU9568-38-89 10:58:00 Test Item Value Reference Range Interpretation Comments Basophils (test code = 0.3 See_Comment [Aut omated message] The Basophils) system which ge nerated this result tra nsmitted reference range : <=1.0. The reference r kat was not used to int erpret this result as normal/abnormal . [facility] CenterCmzruzhQFYVPTZMZN1587-13-49 10:58:00 Test Item Value Reference Range Interpretation Comments Segs-Bands # (test code = Segs-Bands #) 8.1 1.5-8.1 [facility] CenterQfbyreuYSIUSIBSGG4119-88-08 10:58:00 Test Item Value Reference Range Interpretation Comments Eosinophils (test code = 0.2 See_Comment [A utomated message] The Eosinophils) system which ge nerated this result tra nsmitted reference range : <=4.0. The reference r kat was not used to int erpret this result as normal/abnormal . [facility] CenterKlhtfeqSHDBQKHFWY1136-40-63 10:58:00 Test Item Value Reference Range Interpretation Comments Monocytes # (test code 0.8 See_Comment [Aut omated message] The = Monocytes #) system which generated this result tra nsmitted reference range : <=0.8. The reference r kat was not used to int erpret this result as normal/abnormal . [facility] CenterPembkcxAXBJTDSKQY5402-51-53 10:58:00 Test Item Value Reference Range Interpretation Comments Lymphocytes # (test code = Lymphocytes 2.0 1.0-5.5 #) [facility] CenterRqguebtKWZLYEDBUB4845-29-10 10:58:00 Test Item Value Reference Range Interpretation Comments Microcyte (test code = 1+ *ABN*(08/16/15 Microcyte) 4:58 AM) [facility] CenterKgelzzeRAADKQSAEO0736-05-79 10:58:00 Test Item Value Reference Range Interpretation Comments MPV (test code = MPV) 8.9 7.4-10.4 [facility] CenterBwjspepBHWECQPZAZ0894-28-90 10:58:00 Test Item Value Reference Range Interpretation Comments MCV (test code = MCV) 77.3 80.0-98.0 [facility] CenterIqmbniqKNGJYQBYDQ2552-96-69 10:58:00 Test Item Value Reference Range Interpretation Comments Hgb (test code = Hgb) 11.9 12.0-16.0 [facility] CenterYrkohkcXMKSWHAAXC0733-08-15 10:58:00 Test Item Value Reference Range Interpretation Comments Hct (test code = Hct) 37.5 36.0-48.0 [facility] CenterBegxcjiBGCNKEWNEB2103-63-98 10:58:00 Test Item Value Reference Range Interpretation Comments MCH (test code = MCH) 24.5 pg 27.0-31.0 [facility] CenterXevcbyzUDUEIMYRHW9993-78-56 10:58:00 Test Item Value Reference Range Interpretation Comments RBC (test code = RBC) 4.85 4.20-5.40 [facility] CenterZtnccyqRTUXGAMMAI9417-34-52 10:58:00 Test Item Value Reference Range Interpretation Comments WBC (test code = WBC) 10.9 3.7-10.4 [facility] CenterAdqxkziGBZCAHAPTE3637-47-12 10:58:00 Test Item Value Reference Range Interpretation Comments RDW (test code = RDW) 15.9 11.5-14.5 [facility] CenterJiboqhrQWSLTQNOXW6415-19-51 10:58:00 Test Item Value Reference Range Interpretation Comments MCHC (test code = MCHC) 31.7 32.0-36.0 [facility] CenterJqdxpfnXFKAOJKOSM7032-40-87 10:58:00 Test Item Value Reference Range Interpretation Comments Platelet (test code = Platelet) 242 133-450 [facility]2015-12-18 10:58:00 Test Item Value Reference Range Interpretation Comments eGFR (test code = eGFR) 126 [facility]2015-12-18 10:58:00 Test Item Value Reference Range Interpretation Comments AST (test code = AST) 29 See_Comment [Auto mated message] The system which ge nerated this result transmit arvind reference range : <=37. The reference range was not used to interpr et this result as mario l/abnormal. [facility]2015-12-18 10:58:00 Test Item Value Reference Range Interpretation Comments Alk Phos (test code = Alk Phos) 86 39-136 [facility]2015-12-18 10:58:00 Test Item Value Reference Range Interpretation Comments Bili Total (test code = Bili Total) 0.3 0.2-1.3 [facility]2015-12-18 10:58:00 Test Item Value Reference Range Interpretation Comments ALT (test code = ALT) 50 See_Comment [Auto mated message] The system which ge nerated this result transmit arvind reference range : <=65. The reference range was not used to interpr et this result as mario l/abnormal. [facility]2015-12-18 10:58:00 Test Item Value Reference Range Interpretation Comments Sodium Lvl (test code = Sodium Lvl) 136 135-145 [facility]2015-12-18 10:58:00 Test Item Value Reference Range Interpretation Comments Potassium Lvl (test code = Potassium 4.0 3.5-5.1 Lvl) [facility]2015-12-18 10:58:00 Test Item Value Reference Range Interpretation Comments Creatinine Lvl (test code = Creatinine 0.62 0.50-1.40 Lvl) [facility]2015-12-18 10:58:00 Test Item Value Reference Range Interpretation Comments Glucose Lvl (test code = Glucose Lvl) 101 70-99 [facility]2015-12-18 10:58:00 Test Item Value Reference Range Interpretation Comments BUN (test code = BUN) 5 7-22 [facility]2015-12-18 10:58:00 Test Item Value Reference Range Interpretation Comments Total Protein (test code = Total 5.8 6.4-8.4 Protein) [facility]2015-12-18 10:58:00 Test Item Value Reference Range Interpretation Comments Albumin Lvl (test code = Albumin Lvl) 3.2 3.5-5.0 [facility]2015-12-18 10:58:00 Test Item Value Reference Range Interpretation Comments Chloride Lvl (test code = Chloride Lvl) 100 95-109 [facility]2015-12-18 10:58:00 Test Item Value Reference Range Interpretation Comments Calcium Lvl (test code = Calcium Lvl) 8.6 8.5-10.5 [facility]2015-12-18 10:58:00 Test Item Value Reference Range Interpretation Comments CO2 (test code = CO2) 27 24-32 [facility]2015-12-18 10:58:00 Test Item Value Reference Range Interpretation Comments B/C Ratio (test code = B/C Ratio) 8 6-25 [facility]2015-12-18 10:58:00 Test Item Value Reference Range Interpretation Comments Globulin (test code = Globulin) 2.6 2.0-4.0 [facility]2015-12-18 10:58:00 Test Item Value Reference Range Interpretation Comments A/G Ratio (test code = A/G Ratio) 1.2 0.7-1.6 [facility]2015-12-18 10:58:00 Test Item Value Reference Range Interpretation Comments AGAP (test code = AGAP) 13.0 10.0-20.0 [facility] CenterUdvemzvAXQVQITCJX7135-07-95 10:58:00 Test Item Value Reference Range Interpretation Comments Segs (test code = Segs) 74.2 45.0-75.0 [facility] CenterNqdhpchKOFJGNFFMI1347-99-56 10:58:00 Test Item Value Reference Range Interpretation Comments Lymphocytes (test code = Lymphocytes) 18.3 20.0-40.0 [facility] CenterDamtxkhEOONRFIQXW8481-20-67 10:58:00 Test Item Value Reference Range Interpretation Comments Monocytes (test code = Monocytes) 7.0 2.0-12.0 [facility] CenterMcundqyDXCUUPCSHL4768-49-39 10:58:00 Test Item Value Reference Range Interpretation Comments Basophils (test code = 0.3 See_Comment [Aut omated message] The Basophils) system which ge nerated this result tra nsmitted reference range : <=1.0. The reference r kat was not used to int erpret this result as normal/abnormal . [facility] CenterOjuzlpjKIPYTWWBXW5254-95-80 10:58:00 Test Item Value Reference Range Interpretation Comments Segs-Bands # (test code = Segs-Bands #) 8.1 1.5-8.1 [facility] CenterAnscobzKTLYCCOQJM2135-29-04 10:58:00 Test Item Value Reference Range Interpretation Comments Eosinophils (test code = 0.2 See_Comment [A utomated message] The Eosinophils) system which ge nerated this result tra nsmitted reference range : <=4.0. The reference r kat was not used to int erpret this result as normal/abnormal . [facility] CenterQyzknriGLHFASKSXV7355-97-61 10:58:00 Test Item Value Reference Range Interpretation Comments Monocytes # (test code 0.8 See_Comment [Aut omated message] The = Monocytes #) system which generated this result tra nsmitted reference range : <=0.8. The reference r kat was not used to int erpret this result as normal/abnormal . [facility] CenterQtqkdlqOQUAFVSQTO1045-92-75 10:58:00 Test Item Value Reference Range Interpretation Comments Lymphocytes # (test code = Lymphocytes 2.0 1.0-5.5 #) [facility] CenterQirndrfRWEVMFVIDB3887-37-48 10:58:00 Test Item Value Reference Range Interpretation Comments Microcyte (test code = 1+ *ABN*(08/16/15 Microcyte) 4:58 AM) [facility] CenterGaibqxoFRDHAGPQET9988-65-44 10:58:00 Test Item Value Reference Range Interpretation Comments MPV (test code = MPV) 8.9 7.4-10.4 [facility] CenterFjpmprqZCSHLUYELB9584-44-60 10:58:00 Test Item Value Reference Range Interpretation Comments MCV (test code = MCV) 77.3 80.0-98.0 [facility] CenterPgdsencKPSSGWXUDN7247-05-20 10:58:00 Test Item Value Reference Range Interpretation Comments Hgb (test code = Hgb) 11.9 12.0-16.0 [facility] CenterNevhspyWWLZNLFRNM3033-95-48 10:58:00 Test Item Value Reference Range Interpretation Comments Hct (test code = Hct) 37.5 36.0-48.0 [facility] CenterEqknmzmRZRVSWDEZH5555-85-48 10:58:00 Test Item Value Reference Range Interpretation Comments MCH (test code = MCH) 24.5 pg 27.0-31.0 [facility] CenterOqrrvqcHKDUZJREOF6994-24-15 10:58:00 Test Item Value Reference Range Interpretation Comments RBC (test code = RBC) 4.85 4.20-5.40 [facility] CenterKaottpaVZXLTTRDSJ6130-97-91 10:58:00 Test Item Value Reference Range Interpretation Comments WBC (test code = WBC) 10.9 3.7-10.4 [facility] CenterAckxrfvWWQQGKOKSJ3757-52-89 10:58:00 Test Item Value Reference Range Interpretation Comments RDW (test code = RDW) 15.9 11.5-14.5 [facility] CenterPrzkibePXHUSZYDEP1367-19-46 10:58:00 Test Item Value Reference Range Interpretation Comments MCHC (test code = MCHC) 31.7 32.0-36.0 [facility] CenterBpqohpvQRXMDICTDP5294-74-07 10:58:00 Test Item Value Reference Range Interpretation Comments Platelet (test code = Platelet) 242 133-450 [facility]2015-12-18 10:58:00 Test Item Value Reference Range Interpretation Comments eGFR (test code = eGFR) 126 [facility]2015-12-18 10:58:00 Test Item Value Reference Range Interpretation Comments AST (test code = AST) 29 See_Comment [Auto mated message] The system which ge nerated this result transmit arvind reference range : <=37. The reference range was not used to interpr et this result as mario l/abnormal. [facility]2015-12-18 10:58:00 Test Item Value Reference Range Interpretation Comments Alk Phos (test code = Alk Phos) 86 39-136 [facility]2015-12-18 10:58:00 Test Item Value Reference Range Interpretation Comments Bili Total (test code = Bili Total) 0.3 0.2-1.3 [facility]2015-12-18 10:58:00 Test Item Value Reference Range Interpretation Comments ALT (test code = ALT) 50 See_Comment [Auto mated message] The system which ge nerated this result transmit arvind reference range : <=65. The reference range was not used to interpr et this result as mario l/abnormal. [facility]2015-12-18 10:58:00 Test Item Value Reference Range Interpretation Comments Sodium Lvl (test code = Sodium Lvl) 136 135-145 [facility]2015-12-18 10:58:00 Test Item Value Reference Range Interpretation Comments Potassium Lvl (test code = Potassium 4.0 3.5-5.1 Lvl) [facility]2015-12-18 10:58:00 Test Item Value Reference Range Interpretation Comments Creatinine Lvl (test code = Creatinine 0.62 0.50-1.40 Lvl) [facility]2015-12-18 10:58:00 Test Item Value Reference Range Interpretation Comments Glucose Lvl (test code = Glucose Lvl) 101 70-99 [facility]2015-12-18 10:58:00 Test Item Value Reference Range Interpretation Comments BUN (test code = BUN) 5 7-22 [facility]2015-12-18 10:58:00 Test Item Value Reference Range Interpretation Comments Total Protein (test code = Total 5.8 6.4-8.4 Protein) [facility]2015-12-18 10:58:00 Test Item Value Reference Range Interpretation Comments Albumin Lvl (test code = Albumin Lvl) 3.2 3.5-5.0 [facility]2015-12-18 10:58:00 Test Item Value Reference Range Interpretation Comments Chloride Lvl (test code = Chloride Lvl) 100 95-109 [facility]2015-12-18 10:58:00 Test Item Value Reference Range Interpretation Comments Calcium Lvl (test code = Calcium Lvl) 8.6 8.5-10.5 [facility]2015-12-18 10:58:00 Test Item Value Reference Range Interpretation Comments CO2 (test code = CO2) 27 24-32 [facility]2015-12-18 10:58:00 Test Item Value Reference Range Interpretation Comments B/C Ratio (test code = B/C Ratio) 8 6-25 [facility]2015-12-18 10:58:00 Test Item Value Reference Range Interpretation Comments Globulin (test code = Globulin) 2.6 2.0-4.0 [facility]2015-12-18 10:58:00 Test Item Value Reference Range Interpretation Comments A/G Ratio (test code = A/G Ratio) 1.2 0.7-1.6 [facility]2015-12-18 10:58:00 Test Item Value Reference Range Interpretation Comments AGAP (test code = AGAP) 13.0 10.0-20.0 [facility] Cent[id number] 10:58:00 Test Item Value Reference Range Interpretation Comments Segs (test code = Segs) 74.2 45.0-75.0 [facility] CenterVwifxlhLZHNWMTMFM2834-78-86 10:58:00 Test Item Value Reference Range Interpretation Comments Lymphocytes (test code = Lymphocytes) 18.3 20.0-40.0 [facility] CenterFmgqsmsUVWIIMQVDO1443-03-76 10:58:00 Test Item Value Reference Range Interpretation Comments Monocytes (test code = Monocytes) 7.0 2.0-12.0 [facility] CenterZiuoeuqHTEKGAWBMT2982-24-00 10:58:00 Test Item Value Reference Range Interpretation Comments Basophils (test code = 0.3 See_Comment [Aut omated message] The Basophils) system which ge nerated this result tra nsmitted reference range : <=1.0. The reference r kat was not used to int erpret this result as normal/abnormal . [facility] CenterLjuwmtmCGTWKKPROY6738-26-21 10:58:00 Test Item Value Reference Range Interpretation Comments Segs-Bands # (test code = Segs-Bands #) 8.1 1.5-8.1 [facility] CenterLsziryvMRLFMEYLFC5093-38-81 10:58:00 Test Item Value Reference Range Interpretation Comments Eosinophils (test code = 0.2 See_Comment [A utomated message] The Eosinophils) system which ge nerated this result tra nsmitted reference range : <=4.0. The reference r kat was not used to int erpret this result as normal/abnormal . [facility] CenterHmixutoMEDTTXNLHA5979-41-53 10:58:00 Test Item Value Reference Range Interpretation Comments Monocytes # (test code 0.8 See_Comment [Aut omated message] The = Monocytes #) system which generated this result tra nsmitted reference range : <=0.8. The reference r kat was not used to int erpret this result as normal/abnormal . [facility] CenterQbvfohtWGGLPVISCU7136-20-35 10:58:00 Test Item Value Reference Range Interpretation Comments Lymphocytes # (test code = Lymphocytes 2.0 1.0-5.5 #) [facility] CenterSrfwudcABMPYANVIL3080-98-70 10:58:00 Test Item Value Reference Range Interpretation Comments Microcyte (test code = 1+ *ABN*(08/16/15 Microcyte) 4:58 AM) [facility] CenterMeikqsuLNGPXUVXSM4354-13-14 10:58:00 Test Item Value Reference Range Interpretation Comments MPV (test code = MPV) 8.9 7.4-10.4 [facility] CenterBdlxuxyESXUHWVXNR1817-39-15 10:58:00 Test Item Value Reference Range Interpretation Comments MCV (test code = MCV) 77.3 80.0-98.0 [facility] CenterEcvjghoLXMKPIWROZ4458-67-48 10:58:00 Test Item Value Reference Range Interpretation Comments Hgb (test code = Hgb) 11.9 12.0-16.0 [facility] CenterDtxrzyoQMHBQUDEYP9336-54-84 10:58:00 Test Item Value Reference Range Interpretation Comments Hct (test code = Hct) 37.5 36.0-48.0 [facility] CenterVzrgtfxJICYGCQTUB5742-53-10 10:58:00 Test Item Value Reference Range Interpretation Comments MCH (test code = MCH) 24.5 pg 27.0-31.0 [facility] CenterObwkquwTDYRGLUDSW6942-21-74 10:58:00 Test Item Value Reference Range Interpretation Comments RBC (test code = RBC) 4.85 4.20-5.40 [facility] CenterWcvyeplZKSSGVKTWW4153-77-22 10:58:00 Test Item Value Reference Range Interpretation Comments WBC (test code = WBC) 10.9 3.7-10.4 [facility] CenterNdonvpcFHGQWMUMTO6497-53-97 10:58:00 Test Item Value Reference Range Interpretation Comments RDW (test code = RDW) 15.9 11.5-14.5 [facility] CenterMwcbcpiBGTDFEPQPF7891-55-99 10:58:00 Test Item Value Reference Range Interpretation Comments MCHC (test code = MCHC) 31.7 32.0-36.0 [facility]XX2456[facility]-60 10:58:00 Test Item Value Reference Range Interpretation Comments Platelet (test code = Platelet) 242 133-450 [facility]2015-12-18 10:58:00 Test Item Value Reference Range Interpretation Comments eGFR (test code = eGFR) 126 [facility]2015-12-18 10:58:00 Test Item Value Reference Range Interpretation Comments AST (test code = AST) 29 See_Comment [Auto mated message] The system which ge nerated this result transmit arvind reference range : <=37. The reference range was not used to interpr et this result as mario l/abnormal. [facility]2015-12-18 10:58:00 Test Item Value Reference Range Interpretation Comments Alk Phos (test code = Alk Phos) 86 39-136 [facility]2015-12-18 10:58:00 Test Item Value Reference Range Interpretation Comments Bili Total (test code = Bili Total) 0.3 0.2-1.3 [facility]2015-12-18 10:58:00 Test Item Value Reference Range Interpretation Comments ALT (test code = ALT) 50 See_Comment [Auto mated message] The system which ge nerated this result transmit arvind reference range : <=65. The reference range was not used to interpr et this result as mario l/abnormal. [facility]2015-12-18 10:58:00 Test Item Value Reference Range Interpretation Comments Sodium Lvl (test code = Sodium Lvl) 136 135-145 [facility]2015-12-18 10:58:00 Test Item Value Reference Range Interpretation Comments Potassium Lvl (test code = Potassium 4.0 3.5-5.1 Lvl) [facility]2015-12-18 10:58:00 Test Item Value Reference Range Interpretation Comments Creatinine Lvl (test code = Creatinine 0.62 0.50-1.40 Lvl) [facility]2015-12-18 10:58:00 Test Item Value Reference Range Interpretation Comments Glucose Lvl (test code = Glucose Lvl) 101 70-99 [facility]2015-12-18 10:58:00 Test Item Value Reference Range Interpretation Comments BUN (test code = BUN) 5 7-22 [facility]2015-12-18 10:58:00 Test Item Value Reference Range Interpretation Comments Total Protein (test code = Total 5.8 6.4-8.4 Protein) [facility]2015-12-18 10:58:00 Test Item Value Reference Range Interpretation Comments Albumin Lvl (test code = Albumin Lvl) 3.2 3.5-5.0 [facility]2015-12-18 10:58:00 Test Item Value Reference Range Interpretation Comments Chloride Lvl (test code = Chloride Lvl) 100 95-109 [facility]2015-12-18 10:58:00 Test Item Value Reference Range Interpretation Comments Calcium Lvl (test code = Calcium Lvl) 8.6 8.5-10.5 [facility]2015-12-18 10:58:00 Test Item Value Reference Range Interpretation Comments CO2 (test code = CO2) 27 24-32 [facility]2015-12-18 10:58:00 Test Item Value Reference Range Interpretation Comments B/C Ratio (test code = B/C Ratio) 8 6-25 [facility]2015-12-18 10:58:00 Test Item Value Reference Range Interpretation Comments Globulin (test code = Globulin) 2.6 2.0-4.0 [facility]2015-12-18 10:58:00 Test Item Value Reference Range Interpretation Comments A/G Ratio (test code = A/G Ratio) 1.2 0.7-1.6 [facility]2015-12-18 10:58:00 Test Item Value Reference Range Interpretation Comments AGAP (test code = AGAP) 13.0 10.0-20.0 [facility] CenterGzzulfjOBRFHRQRAV4712-63-36 10:58:00 Test Item Value Reference Range Interpretation Comments Segs (test code = Segs) 74.2 45.0-75.0 [facility] CenterViujwshKFAKUBEGCE2967-66-40 10:58:00 Test Item Value Reference Range Interpretation Comments Lymphocytes (test code = Lymphocytes) 18.3 20.0-40.0 [facility] CenterPozapcvWNRFPNDYQC7304-31-63 10:58:00 Test Item Value Reference Range Interpretation Comments Monocytes (test code = Monocytes) 7.0 2.0-12.0 [facility] CenterOppewciKYRHMFMSOA5106-96-28 10:58:00 Test Item Value Reference Range Interpretation Comments Basophils (test code = 0.3 See_Comment [Aut omated message] The Basophils) system which ge nerated this result tra nsmitted reference range : <=1.0. The reference r kat was not used to int erpret this result as normal/abnormal . [facility] CenterGxfcmrdAPLMZAGPUG9113-21-57 10:58:00 Test Item Value Reference Range Interpretation Comments Segs-Bands # (test code = Segs-Bands #) 8.1 1.5-8.1 [facility] CenterBobywbdMPNQVGCFYC1857-53-57 10:58:00 Test Item Value Reference Range Interpretation Comments Eosinophils (test code = 0.2 See_Comment [A utomated message] The Eosinophils) system which ge nerated this result tra nsmitted reference range : <=4.0. The reference r kat was not used to int erpret this result as normal/abnormal . [facility] CenterVqnpnieKLIQVGWABI3171-83-12 10:58:00 Test Item Value Reference Range Interpretation Comments Monocytes # (test code 0.8 See_Comment [Aut omated message] The = Monocytes #) system which generated this result tra nsmitted reference range : <=0.8. The reference r kat was not used to int erpret this result as normal/abnormal . [facility] CenterIerplggZIAHYEKCGA1440-46-87 10:58:00 Test Item Value Reference Range Interpretation Comments Lymphocytes # (test code = Lymphocytes 2.0 1.0-5.5 #) [facility] CenterHafpggxZJEEGQIFYH6590-47-28 10:58:00 Test Item Value Reference Range Interpretation Comments Microcyte (test code = 1+ *ABN*(08/16/15 Microcyte) 4:58 AM) [facility] CenterWxrjwqrRVWAGKOVMV8085-22-62 10:58:00 Test Item Value Reference Range Interpretation Comments MPV (test code = MPV) 8.9 7.4-10.4 [facility] CenterZbewbtuMCYQPEANNM4067-18-56 10:58:00 Test Item Value Reference Range Interpretation Comments MCV (test code = MCV) 77.3 80.0-98.0 [facility] CenterLvdnrqqWTXNDOVXDQ5330-04-74 10:58:00 Test Item Value Reference Range Interpretation Comments Hgb (test code = Hgb) 11.9 12.0-16.0 [facility] CenterVvtsoksOTFGORPFUC8834-01-06 10:58:00 Test Item Value Reference Range Interpretation Comments Hct (test code = Hct) 37.5 36.0-48.0 [facility] CenterXdmbikrZUMBFDDVMD3654-90-94 10:58:00 Test Item Value Reference Range Interpretation Comments MCH (test code = MCH) 24.5 pg 27.0-31.0 [facility] CenterVaegntkZINRJRMAZA1928-26-59 10:58:00 Test Item Value Reference Range Interpretation Comments RBC (test code = RBC) 4.85 4.20-5.40 [facility] CenterCjkbhhsOCATVSFERZ5632-69-95 10:58:00 Test Item Value Reference Range Interpretation Comments WBC (test code = WBC) 10.9 3.7-10.4 [facility] CenterPfnmnbcGWORCLAIYG5530-65-53 10:58:00 Test Item Value Reference Range Interpretation Comments RDW (test code = RDW) 15.9 11.5-14.5 [facility] CenterEifogppZEBQZQTTER2200-91-18 10:58:00 Test Item Value Reference Range Interpretation Comments MCHC (test code = MCHC) 31.7 32.0-36.0 [facility] CenterMfoujlzLPUKXTMWLZ1261-05-16 10:58:00 Test Item Value Reference Range Interpretation Comments Platelet (test code = Platelet) 242 133-450 [facility]2015-12-18 10:58:00 Test Item Value Reference Range Interpretation Comments eGFR (test code = eGFR) 126 [facility]2015-12-18 10:58:00 Test Item Value Reference Range Interpretation Comments AST (test code = AST) 29 See_Comment [Auto mated message] The system which ge nerated this result transmit arvind reference range : <=37. The reference range was not used to interpr et this result as mario l/abnormal. [facility]2015-12-18 10:58:00 Test Item Value Reference Range Interpretation Comments Alk Phos (test code = Alk Phos) 86 39-136 [facility]2015-12-18 10:58:00 Test Item Value Reference Range Interpretation Comments Bili Total (test code = Bili Total) 0.3 0.2-1.3 [facility]2015-12-18 10:58:00 Test Item Value Reference Range Interpretation Comments ALT (test code = ALT) 50 See_Comment [Auto mated message] The system which ge nerated this result transmit arvind reference range : <=65. The reference range was not used to interpr et this result as mario l/abnormal. [facility]2015-12-18 10:58:00 Test Item Value Reference Range Interpretation Comments Sodium Lvl (test code = Sodium Lvl) 136 135-145 [facility]2015-12-18 10:58:00 Test Item Value Reference Range Interpretation Comments Potassium Lvl (test code = Potassium 4.0 3.5-5.1 Lvl) [facility]2015-12-18 10:58:00 Test Item Value Reference Range Interpretation Comments Creatinine Lvl (test code = Creatinine 0.62 0.50-1.40 Lvl) [facility]2015-12-18 10:58:00 Test Item Value Reference Range Interpretation Comments Glucose Lvl (test code = Glucose Lvl) 101 70-99 [facility]2015-12-18 10:58:00 Test Item Value Reference Range Interpretation Comments BUN (test code = BUN) 5 7-22 [facility]2015-12-18 10:58:00 Test Item Value Reference Range Interpretation Comments Total Protein (test code = Total 5.8 6.4-8.4 Protein) [facility]2015-12-18 10:58:00 Test Item Value Reference Range Interpretation Comments Albumin Lvl (test code = Albumin Lvl) 3.2 3.5-5.0 [facility]2015-12-18 10:58:00 Test Item Value Reference Range Interpretation Comments Chloride Lvl (test code = Chloride Lvl) 100 95-109 [facility]2015-12-18 10:58:00 Test Item Value Reference Range Interpretation Comments Calcium Lvl (test code = Calcium Lvl) 8.6 8.5-10.5 [facility]2015-12-18 10:58:00 Test Item Value Reference Range Interpretation Comments CO2 (test code = CO2) 27 24-32 [facility]2015-12-18 10:58:00 Test Item Value Reference Range Interpretation Comments B/C Ratio (test code = B/C Ratio) 8 6-25 [facility]2015-12-18 10:58:00 Test Item Value Reference Range Interpretation Comments Globulin (test code = Globulin) 2.6 2.0-4.0 [facility]2015-12-18 10:58:00 Test Item Value Reference Range Interpretation Comments A/G Ratio (test code = A/G Ratio) 1.2 0.7-1.6 [facility]2015-12-18 10:58:00 Test Item Value Reference Range Interpretation Comments AGAP (test code = AGAP) 13.0 10.0-20.0 [facility] CenterEyeikwtOURAOHCRAN4710-66-31 10:58:00 Test Item Value Reference Range Interpretation Comments Segs (test code = Segs) 74.2 45.0-75.0 [facility] CenterIoudscvAAQQZAFPMI1595-88-72 10:58:00 Test Item Value Reference Range Interpretation Comments Lymphocytes (test code = Lymphocytes) 18.3 20.0-40.0 [facility] CenterUdqkfazNUDTWQPBLD6021-46-25 10:58:00 Test Item Value Reference Range Interpretation Comments Monocytes (test code = Monocytes) 7.0 2.0-12.0 [facility] CenterEgvtbfyPPPRTGAVEE6108-23-86 10:58:00 Test Item Value Reference Range Interpretation Comments Basophils (test code = 0.3 See_Comment [Aut omated message] The Basophils) system which ge nerated this result tra nsmitted reference range : <=1.0. The reference r kat was not used to int erpret this result as normal/abnormal . [facility] CenterKyekazuBKRFKMHNXC2501-45-51 10:58:00 Test Item Value Reference Range Interpretation Comments Segs-Bands # (test code = Segs-Bands #) 8.1 1.5-8.1 [facility] CenterGsxnyqtYQQNNFLFYL7542-42-07 10:58:00 Test Item Value Reference Range Interpretation Comments Eosinophils (test code = 0.2 See_Comment [A utomated message] The Eosinophils) system which ge nerated this result tra nsmitted reference range : <=4.0. The reference r kat was not used to int erpret this result as normal/abnormal . [facility] CenterDymniynNLHYBAULYW3873-71-03 10:58:00 Test Item Value Reference Range Interpretation Comments Monocytes # (test code 0.8 See_Comment [Aut omated message] The = Monocytes #) system which generated this result tra nsmitted reference range : <=0.8. The reference r kat was not used to int erpret this result as normal/abnormal . [facility] CenterZlpaaxwJFVGYTXSJT7809-32-38 10:58:00 Test Item Value Reference Range Interpretation Comments Lymphocytes # (test code = Lymphocytes 2.0 1.0-5.5 #) [facility] CenterFvdlexbQFSPWCRAJU8441-07-68 10:58:00 Test Item Value Reference Range Interpretation Comments Microcyte (test code = 1+ *ABN*(08/16/15 Microcyte) 4:58 AM) [facility] CenterPqxzdneVURMUDHQWT6402-72-21 10:58:00 Test Item Value Reference Range Interpretation Comments MPV (test code = MPV) 8.9 7.4-10.4 [facility] CenterVsnuhlxGIMFWTDKLV9567-29-70 10:58:00 Test Item Value Reference Range Interpretation Comments MCV (test code = MCV) 77.3 80.0-98.0 [facility] CenterYurnzupWFMPNMAXLZ5438-56-15 10:58:00 Test Item Value Reference Range Interpretation Comments Hgb (test code = Hgb) 11.9 12.0-16.0 [facility] CenterLalmnqmBXGHEBKUUA9434-55-61 10:58:00 Test Item Value Reference Range Interpretation Comments Hct (test code = Hct) 37.5 36.0-48.0 [facility] CenterSxgiqczNZOQHSEBNQ6205-01-47 10:58:00 Test Item Value Reference Range Interpretation Comments MCH (test code = MCH) 24.5 pg 27.0-31.0 [facility] CenterAbypoaaDVLNQITOAY7202-87-08 10:58:00 Test Item Value Reference Range Interpretation Comments RBC (test code = RBC) 4.85 4.20-5.40 [facility] CenterIaemqflTKZUMWYWNK3163-66-87 10:58:00 Test Item Value Reference Range Interpretation Comments WBC (test code = WBC) 10.9 3.7-10.4 [facility] CenterTkziaqtCAQCCCBMYF7931-41-65 10:58:00 Test Item Value Reference Range Interpretation Comments RDW (test code = RDW) 15.9 11.5-14.5 [facility] CenterMnqzczyRXHEYMBPGQ5517-64-62 10:58:00 Test Item Value Reference Range Interpretation Comments MCHC (test code = MCHC) 31.7 32.0-36.0 [facility] CenterHobomcwYMBKKTMULK4299-49-77 10:58:00 Test Item Value Reference Range Interpretation Comments Platelet (test code = Platelet) 242 133-450 [facility]2015-12-18 10:58:00 Test Item Value Reference Range Interpretation Comments eGFR (test code = eGFR) 126 [facility]2015-12-18 10:58:00 Test Item Value Reference Range Interpretation Comments AST (test code = AST) 29 See_Comment [Auto mated message] The system which ge nerated this result transmit arvind reference range : <=37. The reference range was not used to interpr et this result as mario l/abnormal. [facility]2015-12-18 10:58:00 Test Item Value Reference Range Interpretation Comments Alk Phos (test code = Alk Phos) 86 39-136 [facility]2015-12-18 10:58:00 Test Item Value Reference Range Interpretation Comments Bili Total (test code = Bili Total) 0.3 0.2-1.3 [facility]2015-12-18 10:58:00 Test Item Value Reference Range Interpretation Comments ALT (test code = ALT) 50 See_Comment [Auto mated message] The system which ge nerated this result transmit arvind reference range : <=65. The reference range was not used to interpr et this result as mario l/abnormal. [facility]2015-12-18 10:58:00 Test Item Value Reference Range Interpretation Comments Sodium Lvl (test code = Sodium Lvl) 136 135-145 [facility]2015-12-18 10:58:00 Test Item Value Reference Range Interpretation Comments Potassium Lvl (test code = Potassium 4.0 3.5-5.1 Lvl) [facility]2015-12-18 10:58:00 Test Item Value Reference Range Interpretation Comments Creatinine Lvl (test code = Creatinine 0.62 0.50-1.40 Lvl) [facility]2015-12-18 10:58:00 Test Item Value Reference Range Interpretation Comments Glucose Lvl (test code = Glucose Lvl) 101 70-99 [facility]2015-12-18 10:58:00 Test Item Value Reference Range Interpretation Comments BUN (test code = BUN) 5 7-22 [place] 610125-12-18 10:58:00 Test Item Value Reference Range Interpretation Comments Total Protein (test code = Total 5.8 6.4-8.4 Protein) [facility]2015-12-18 10:58:00 Test Item Value Reference Range Interpretation Comments Albumin Lvl (test code = Albumin Lvl) 3.2 3.5-5.0 [facility]2015-12-18 10:58:00 Test Item Value Reference Range Interpretation Comments Chloride Lvl (test code = Chloride Lvl) 100 95-109 [facility]2015-12-18 10:58:00 Test Item Value Reference Range Interpretation Comments Calcium Lvl (test code = Calcium Lvl) 8.6 8.5-10.5 [facility]2015-12-18 10:58:00 Test Item Value Reference Range Interpretation Comments CO2 (test code = CO2) 27 24-32 [facility]2015-12-18 10:58:00 Test Item Value Reference Range Interpretation Comments B/C Ratio (test code = B/C Ratio) 8 6-25 [facility]2015-12-18 10:58:00 Test Item Value Reference Range Interpretation Comments Globulin (test code = Globulin) 2.6 2.0-4.0 [facility]2015-12-18 10:58:00 Test Item Value Reference Range Interpretation Comments A/G Ratio (test code = A/G Ratio) 1.2 0.7-1.6 [facility]2015-12-18 10:58:00 Test Item Value Reference Range Interpretation Comments AGAP (test code = AGAP) 13.0 10.0-20.0 [facility] CenterHsaaxehQGNEUSNSMY8434-87-25 10:58:00 Test Item Value Reference Range Interpretation Comments Segs (test code = Segs) 74.2 45.0-75.0 [facility] CenterVosksxiXWGKXVLGUM9040-91-44 10:58:00 Test Item Value Reference Range Interpretation Comments Lymphocytes (test code = Lymphocytes) 18.3 20.0-40.0 [facility] CenterIcgwutmYZFQRLXNOK7621-88-93 10:58:00 Test Item Value Reference Range Interpretation Comments Monocytes (test code = Monocytes) 7.0 2.0-12.0 [facility] CenterTdipznaUWJJRVVKRM0342-53-40 10:58:00 Test Item Value Reference Range Interpretation Comments Basophils (test code = 0.3 See_Comment [Aut omated message] The Basophils) system which ge nerated this result tra nsmitted reference range : <=1.0. The reference r kat was not used to int erpret this result as normal/abnormal . [facility] CenterVdlfsflNQZUKUTGHO1710-02-26 10:58:00 Test Item Value Reference Range Interpretation Comments Segs-Bands # (test code = Segs-Bands #) 8.1 1.5-8.1 [facility] CenterYoqqoxlZKBJWYAYFV7999-70-85 10:58:00 Test Item Value Reference Range Interpretation Comments Eosinophils (test code = 0.2 See_Comment [A utomated message] The Eosinophils) system which ge nerated this result tra nsmitted reference range : <=4.0. The reference r kat was not used to int erpret this result as normal/abnormal . [facility] CenterJlweaobJMVWXQCPJR3583-04-56 10:58:00 Test Item Value Reference Range Interpretation Comments Monocytes # (test code 0.8 See_Comment [Aut omated message] The = Monocytes #) system which generated this result tra nsmitted reference range : <=0.8. The reference r kat was not used to int erpret this result as normal/abnormal . [facility] CenterSejssdnZWGPVXXOFY3198-15-65 10:58:00 Test Item Value Reference Range Interpretation Comments Lymphocytes # (test code = Lymphocytes 2.0 1.0-5.5 #) [facility] CenterRfambneODJYUIEHBX2374-86-90 10:58:00 Test Item Value Reference Range Interpretation Comments Microcyte (test code = 1+ *ABN*(08/16/15 Microcyte) 4:58 AM) [facility] CenterSkqalsaMBRNJVNEEB2834-05-31 10:58:00 Test Item Value Reference Range Interpretation Comments MPV (test code = MPV) 8.9 7.4-10.4 [facility] CenterCtnrykeVPJPBHTESM1598-72-45 10:58:00 Test Item Value Reference Range Interpretation Comments MCV (test code = MCV) 77.3 80.0-98.0 [facility] CenterOahfwmrHZYKPCAMNU6741-72-56 10:58:00 Test Item Value Reference Range Interpretation Comments Hgb (test code = Hgb) 11.9 12.0-16.0 [facility] CenterXmlbaedFEKMXVGCVH6340-68-85 10:58:00 Test Item Value Reference Range Interpretation Comments Hct (test code = Hct) 37.5 36.0-48.0 [facility] CenterTnishabMHQUJCIYEV8843-05-94 10:58:00 Test Item Value Reference Range Interpretation Comments MCH (test code = MCH) 24.5 pg 27.0-31.0 [facility] CenterCrxslytCXCKZCGDAN4155-45-56 10:58:00 Test Item Value Reference Range Interpretation Comments RBC (test code = RBC) 4.85 4.20-5.40 [facility] CenterInityyhDMIPFYLULE0545-92-69 10:58:00 Test Item Value Reference Range Interpretation Comments WBC (test code = WBC) 10.9 3.7-10.4 [facility] CenterTdlpatuXIRZFPLHFO5978-70-66 10:58:00 Test Item Value Reference Range Interpretation Comments RDW (test code = RDW) 15.9 11.5-14.5 [facility] CenterSrdagylLYFOWPYAYD1490-69-74 10:58:00 Test Item Value Reference Range Interpretation Comments MCHC (test code = MCHC) 31.7 32.0-36.0 [facility] CenterWmalwfjSESVTSQFJW2853-07-22 10:58:00 Test Item Value Reference Range Interpretation Comments Platelet (test code = Platelet) 242 133-450 [facility]2015-12-14 15:29:00 Test Item Value Reference Range Interpretation Comments eGFR (test code = eGFR) 101 [facility]2015-12-14 15:29:00 Test Item Value Reference Range Interpretation Comments Creatinine Lvl (test code = Creatinine 0.81 0.50-1.40 Lvl) [facility]2015-12-14 15:29:00 Test Item Value Reference Range Interpretation Comments CO2 (test code = CO2) 27 24-32 [facility]2015-12-14 15:29:00 Test Item Value Reference Range Interpretation Comments Calcium Lvl (test code = Calcium Lvl) 9.7 8.5-10.5 [facility]2015-12-14 15:29:00 Test Item Value Reference Range Interpretation Comments Chloride Lvl (test code = Chloride Lvl) 100 95-109 [facility]2015-12-14 15:29:00 Test Item Value Reference Range Interpretation Comments BUN (test code = BUN) 13 7-22 [place] 610125-12-14 15:29:00 Test Item Value Reference Range Interpretation Comments Glucose Lvl (test code = Glucose Lvl) 89 70-99 [facility]2015-12-14 15:29:00 Test Item Value Reference Range Interpretation Comments Potassium Lvl (test code = Potassium 4.2 3.5-5.1 Lvl) [facility]2015-12-14 15:29:00 Test Item Value Reference Range Interpretation Comments Sodium Lvl (test code = Sodium Lvl) 134 135-145 [facility]2015-12-14 15:29:00 Test Item Value Reference Range Interpretation Comments AGAP (test code = AGAP) 11.2 10.0-20.0 [facility] CenterCkmhuzzRNIMFQMQRH0275-15-70 15:29:00 Test Item Value Reference Range Interpretation Comments MPV (test code = MPV) 9.2 7.4-10.4 [facility] CenterSiwjrbuBJFKDQESMD6168-75-23 15:29:00 Test Item Value Reference Range Interpretation Comments Platelet (test code = Platelet) 307 133-450 [facility] CenterWscnlpgICMAIDDOZM0757-67-07 15:29:00 Test Item Value Reference Range Interpretation Comments MCH (test code = MCH) 24.3 pg 27.0-31.0 [facility] CenterQydcjauVNWGDYPKVR7350-31-88 15:29:00 Test Item Value Reference Range Interpretation Comments RDW (test code = RDW) 15.7 11.5-14.5 [facility] CenterFoclgrxDTGLUSCPDE7292-36-53 15:29:00 Test Item Value Reference Range Interpretation Comments MCHC (test code = MCHC) 31.2 32.0-36.0 [facility] CenterRnpjckmDIEZKCXTHL2500-58-83 15:29:00 Test Item Value Reference Range Interpretation Comments MCV (test code = MCV) 78.0 80.0-98.0 [facility] CenterAikakfjAFBNLDMZEP8887-84-21 15:29:00 Test Item Value Reference Range Interpretation Comments WBC (test code = WBC) 8.6 3.7-10.4 [facility] CenterHemsodmYIEXIPNYIU5129-25-41 15:29:00 Test Item Value Reference Range Interpretation Comments Hgb (test code = Hgb) 13.2 12.0-16.0 [facility] CenterWtkciguHRRAKTFVKR5239-59-51 15:29:00 Test Item Value Reference Range Interpretation Comments RBC (test code = RBC) 5.41 4.20-5.40 [facility] CenterXbtlyzdWXRSYEJWXX4526-01-34 15:29:00 Test Item Value Reference Range Interpretation Comments Hct (test code = Hct) 42.1 36.0-48.0 [facility] CenterSsvfsahESIWBGTKFC4153-12-54 15:29:00 Test Item Value Reference Range Interpretation Comments Lymphocytes # (test code = Lymphocytes 3.2 1.0-5.5 #) [facility] CenterRrimzvpJVOEIBLDIY0617-74-01 15:29:00 Test Item Value Reference Range Interpretation Comments Eosinophils # (test code 0.1 See_Comment [A utomated message] The = Eosinophils #) system whic h generated this result tra nsmitted reference range : <=0.5. The reference r kat was not used to int erpret this result as normal/abnormal . [facility] CenterLekxjrgQLIEPAJFYH4820-13-31 15:29:00 Test Item Value Reference Range Interpretation Comments Monocytes # (test code 0.8 See_Comment [Aut omated message] The = Monocytes #) system which generated this result tra nsmitted reference range : <=0.8. The reference r kat was not used to int erpret this result as normal/abnormal . [facility] CenterVwuuhmiFCTCGSYZST3031-18-54 15:29:00 Test Item Value Reference Range Interpretation Comments Basophils (test code = 0.7 See_Comment [Aut omated message] The Basophils) system which ge nerated this result tra nsmitted reference range : <=1.0. The reference r kat was not used to int erpret this result as normal/abnormal . [facility] CenterWvjtwzaAIBBNAOOGA0781-97-34 15:29:00 Test Item Value Reference Range Interpretation Comments Segs-Bands # (test code = Segs-Bands #) 4.4 1.5-8.1 [facility] CenterJfoshwsWBSWDQQGIK4673-86-05 15:29:00 Test Item Value Reference Range Interpretation Comments Eosinophils (test code = 1.2 See_Comment [A utomated message] The Eosinophils) system which ge nerated this result tra nsmitted reference range : <=4.0. The reference r kat was not used to int erpret this result as normal/abnormal . [facility] CenterLgjhfdhWWRSPKEJOZ2693-71-06 15:29:00 Test Item Value Reference Range Interpretation Comments Lymphocytes (test code = Lymphocytes) 37.4 20.0-40.0 [facility]ownKnoeeceOYQZLHGFOX4099-73-53 15:29:00 Test Item Value Reference Range Interpretation Comments Monocytes (test code = Monocytes) 8.9 2.0-12.0 [facility]quvOFVVXIZHDT8410-02-29 15:29:00 Test Item Value Reference Range Interpretation Comments Segs (test code = Segs) 51.8 45.0-75.0 [facility] UptownLrckufgGNRNDYLJIZ8695-82-03 15:29:00 Test Item Value Reference Range Interpretation Comments Microcyte (test code = 1+ *ABN*(08/12/15 Microcyte) 9:29 AM) [facility] UptownZggziezJWNEXXMEOG2056-79-76 15:29:00 Test Item Value Reference Range Interpretation Comments Basophils # (test code 0.1 See_Comment [Aut omated message] The = Basophils #) system which generated this result tra nsmitted reference range : <=0.2. The reference r kat was not used to int erpret this result as normal/abnormal . [facility]ownannURINE PCYR1897-30-50 15:29:00 Test Item Value Reference Range Interpretation Comments U Preg (test code = U Negative (08/12/15 9:29 Preg) AM) [facility]ownannCHEM OWQMC0158-06-26 15:29:00 Test Item Value Reference Range Interpretation Comments eGFR (test code = eGFR) 101 [facility]CHE[facility] HCQRA1508-74-63 15:29:00 Test Item Value Reference Range Interpretation Comments Creatinine Lvl (test code = Creatinine 0.81 0.50-1.40 Lvl) [facility]CHE[facility] [id number] 15:29:00 Test Item Value Reference Range Interpretation Comments CO2 (test code = CO2) 27 24-32 [facility] HermannCHEM DCKDI6961-84-18 15:29:00 Test Item Value Reference Range Interpretation Comments Calcium Lvl (test code = Calcium Lvl) 9.7 8.5-10.5 [facility] HermannCHEM PVOKU3794-78-41 15:29:00 Test Item Value Reference Range Interpretation Comments Chloride Lvl (test code = Chloride Lvl) 100 95-109 [facility]CHE[facility] RZBVL7860-84-83 15:29:00 Test Item Value Reference Range Interpretation Comments BUN (test code = BUN) 13 7-22 [facility]2015-12-14 15:29:00 Test Item Value Reference Range Interpretation Comments Glucose Lvl (test code = Glucose Lvl) 89 70-99 [facility]2015-12-14 15:29:00 Test Item Value Reference Range Interpretation Comments Potassium Lvl (test code = Potassium 4.2 3.5-5.1 Lvl) [facility]2015-12-14 15:29:00 Test Item Value Reference Range Interpretation Comments Sodium Lvl (test code = Sodium Lvl) 134 135-145 [facility]2015-12-14 15:29:00 Test Item Value Reference Range Interpretation Comments AGAP (test code = AGAP) 11.2 10.0-20.0 [facility] CenterKizagijOUMUHIVNGX0888-67-27 15:29:00 Test Item Value Reference Range Interpretation Comments MPV (test code = MPV) 9.2 7.4-10.4 [facility] CenterWyjerkeHUJNRYGVSP5346-74-89 15:29:00 Test Item Value Reference Range Interpretation Comments Platelet (test code = Platelet) 307 133-450 [facility] CenterGjjuktvXCEOTEBDXS4577-32-76 15:29:00 Test Item Value Reference Range Interpretation Comments MCH (test code = MCH) 24.3 pg 27.0-31.0 [facility] CenterBrfspoqKJCFSBESDQ7467-27-66 15:29:00 Test Item Value Reference Range Interpretation Comments RDW (test code = RDW) 15.7 11.5-14.5 [facility] CenterYxlzgmxSUUJOBFRYC9389-38-66 15:29:00 Test Item Value Reference Range Interpretation Comments MCHC (test code = MCHC) 31.2 32.0-36.0 [facility] CenterLfulcgzJVPZCSPQXZ4350-48-19 15:29:00 Test Item Value Reference Range Interpretation Comments MCV (test code = MCV) 78.0 80.0-98.0 [facility] CenterRyesokoABNUZEMRXO1246-18-91 15:29:00 Test Item Value Reference Range Interpretation Comments WBC (test code = WBC) 8.6 3.7-10.4 [place] 845915-12-14 15:29:00 Test Item Value Reference Range Interpretation Comments Hgb (test code = Hgb) 13.2 12.0-16.0 [facility] CenterOhvosoeFNGMJOXLXP2810-79-42 15:29:00 Test Item Value Reference Range Interpretation Comments RBC (test code = RBC) 5.41 4.20-5.40 [facility] CenterDymfypqWDPWEYNUJN7645-97-10 15:29:00 Test Item Value Reference Range Interpretation Comments Hct (test code = Hct) 42.1 36.0-48.0 [facility] CenterHrawrevFRIFSXTSBR2571-32-11 15:29:00 Test Item Value Reference Range Interpretation Comments Lymphocytes # (test code = Lymphocytes 3.2 1.0-5.5 #) [facility] CenterRpycfreNXHZPZXAOR0799-74-02 15:29:00 Test Item Value Reference Range Interpretation Comments Eosinophils # (test code 0.1 See_Comment [A utomated message] The = Eosinophils #) system whic h generated this result tra nsmitted reference range : <=0.5. The reference r kat was not used to int erpret this result as normal/abnormal . [facility] CenterPcymjhdAJSTZFEYLR3771-44-58 15:29:00 Test Item Value Reference Range Interpretation Comments Monocytes # (test code 0.8 See_Comment [Aut omated message] The = Monocytes #) system which generated this result tra nsmitted reference range : <=0.8. The reference r kat was not used to int erpret this result as normal/abnormal . [facility] CenterYpufknyVADOYTZWCK5586-35-09 15:29:00 Test Item Value Reference Range Interpretation Comments Basophils (test code = 0.7 See_Comment [Aut omated message] The Basophils) system which ge nerated this result tra nsmitted reference range : <=1.0. The reference r kat was not used to int erpret this result as normal/abnormal . [facility] CenterQyytuofSCOURKFCSJ0404-42-80 15:29:00 Test Item Value Reference Range Interpretation Comments Segs-Bands # (test code = Segs-Bands #) 4.4 1.5-8.1 [facility] CenterTvfnckjOYROZIWETU4496-06-49 15:29:00 Test Item Value Reference Range Interpretation Comments Eosinophils (test code = 1.2 See_Comment [A utomated message] The Eosinophils) system which ge nerated this result tra nsmitted reference range : <=4.0. The reference r kat was not used to int erpret this result as normal/abnormal . [facility] CenterByroxufHFCFIIGSWU6411-28-00 15:29:00 Test Item Value Reference Range Interpretation Comments Lymphocytes (test code = Lymphocytes) 37.4 20.0-40.0 [facility] UptownCeprancCCUNZHEMRG5865-32-44 15:29:00 Test Item Value Reference Range Interpretation Comments Monocytes (test code = Monocytes) 8.9 2.0-12.0 [facility] UptownZwqdkteEHWIZMCPHD2388-61-35 15:29:00 Test Item Value Reference Range Interpretation Comments Segs (test code = Segs) 51.8 45.0-75.0 [facility] UptownAbnmqyqJFOOBEIMZG6715-28-01 15:29:00 Test Item Value Reference Range Interpretation Comments Microcyte (test code = 1+ *ABN*(08/12/15 Microcyte) 9:29 AM) [facility] UptownDjcinqoQSPXKDGBJO8029-03-78 15:29:00 Test Item Value Reference Range Interpretation Comments Basophils # (test code 0.1 See_Comment [Aut omated message] The = Basophils #) system which generated this result tra nsmitted reference range : <=0.2. The reference r kat was not used to int erpret this result as normal/abnormal . [facility]own[facility]URINE [id number] 15:29:00 Test Item Value Reference Range Interpretation Comments U Preg (test code = U Negative (08/12/15 9:29 Preg) AM) [facility]CHEM [id number] 15:29:00 Test Item Value Reference Range Interpretation Comments eGFR (test code = eGFR) 101 [facility]CHE[facility] [id number] 15:29:00 Test Item Value Reference Range Interpretation Comments Creatinine Lvl (test code = Creatinine 0.81 0.50-1.40 Lvl) [facility] OXVQM1571-04-48 15:29:00 Test Item Value Reference Range Interpretation Comments CO2 (test code = CO2) 27 24-32 [facility]CHE[facility] ZMQQK4312-40-92 15:29:00 Test Item Value Reference Range Interpretation Comments Calcium Lvl (test code = Calcium Lvl) 9.7 8.5-10.5 [facility]CHE[facility] NWAXW5135-09-13 15:29:00 Test Item Value Reference Range Interpretation Comments Chloride Lvl (test code = Chloride Lvl) 100 95-109 [facility]ownannCHEM PEOZR5017-85-92 15:29:00 Test Item Value Reference Range Interpretation Comments BUN (test code = BUN) 13 7-22 [facility]2015-12-14 15:29:00 Test Item Value Reference Range Interpretation Comments Glucose Lvl (test code = Glucose Lvl) 89 70-99 [facility]2015-12-14 15:29:00 Test Item Value Reference Range Interpretation Comments Potassium Lvl (test code = Potassium 4.2 3.5-5.1 Lvl) [facility]2015-12-14 15:29:00 Test Item Value Reference Range Interpretation Comments Sodium Lvl (test code = Sodium Lvl) 134 135-145 [facility]2015-12-14 15:29:00 Test Item Value Reference Range Interpretation Comments AGAP (test code = AGAP) 11.2 10.0-20.0 [facility] CenterSqwuofgLIICMAAWZP8266-88-59 15:29:00 Test Item Value Reference Range Interpretation Comments MPV (test code = MPV) 9.2 7.4-10.4 [facility] CenterJvfsphqIRBEIEHCVQ2178-81-83 15:29:00 Test Item Value Reference Range Interpretation Comments Platelet (test code = Platelet) 307 133-450 [facility] CenterHdcfistXKQYTOSBSR1141-08-02 15:29:00 Test Item Value Reference Range Interpretation Comments MCH (test code = MCH) 24.3 pg 27.0-31.0 [facility] CenterSsoouoiXKAVMQKQIS0569-68-71 15:29:00 Test Item Value Reference Range Interpretation Comments RDW (test code = RDW) 15.7 11.5-14.5 [facility] CenterMgsmhcaALPYMHDNNW5446-56-26 15:29:00 Test Item Value Reference Range Interpretation Comments MCHC (test code = MCHC) 31.2 32.0-36.0 [facility] CenterHqphpxzVWPIDTKRNC2535-31-52 15:29:00 Test Item Value Reference Range Interpretation Comments MCV (test code = MCV) 78.0 80.0-98.0 [facility] CenterRsvsdrqQKFRRCKGNY5832-51-02 15:29:00 Test Item Value Reference Range Interpretation Comments WBC (test code = WBC) 8.6 3.7-10.4 [facility] CenterIgmyzhaNIMPOKPEBH9250-32-78 15:29:00 Test Item Value Reference Range Interpretation Comments Hgb (test code = Hgb) 13.2 12.0-16.0 [facility] CenterGczpvnxTEILLTPXYT9783-16-36 15:29:00 Test Item Value Reference Range Interpretation Comments RBC (test code = RBC) 5.41 4.20-5.40 [facility] CenterOhknpshNEQUUSITYT5492-68-03 15:29:00 Test Item Value Reference Range Interpretation Comments Hct (test code = Hct) 42.1 36.0-48.0 [facility] CenterJbdxgtsRSWTYSYVLD4962-88-12 15:29:00 Test Item Value Reference Range Interpretation Comments Lymphocytes # (test code = Lymphocytes 3.2 1.0-5.5 #) [facility] CenterHnzvagjVBNNHXVMPV1942-19-14 15:29:00 Test Item Value Reference Range Interpretation Comments Eosinophils # (test code 0.1 See_Comment [A utomated message] The = Eosinophils #) system whic h generated this result tra nsmitted reference range : <=0.5. The reference r kat was not used to int erpret this result as normal/abnormal . [facility] CenterAcpptiuJBIWNDZBXI6605-08-35 15:29:00 Test Item Value Reference Range Interpretation Comments Monocytes # (test code 0.8 See_Comment [Aut omated message] The = Monocytes #) system which generated this result tra nsmitted reference range : <=0.8. The reference r kat was not used to int erpret this result as normal/abnormal . [facility] CenterOlwtkbaSFWQVGJUBH0630-51-18 15:29:00 Test Item Value Reference Range Interpretation Comments Basophils (test code = 0.7 See_Comment [Aut omated message] The Basophils) system which ge nerated this result tra nsmitted reference range : <=1.0. The reference r kat was not used to int erpret this result as normal/abnormal . [facility] CenterCpatjriHKLRZHZVSA9836-11-24 15:29:00 Test Item Value Reference Range Interpretation Comments Segs-Bands # (test code = Segs-Bands #) 4.4 1.5-8.1 [facility] CenterRumefrjKLNHEKBQYU9823-68-15 15:29:00 Test Item Value Reference Range Interpretation Comments Eosinophils (test code = 1.2 See_Comment [A utomated message] The Eosinophils) system which ge nerated this result tra nsmitted reference range : <=4.0. The reference r kat was not used to int erpret this result as normal/abnormal . [facility] CenterVuonlkdJPHPZCQJTW3198-43-52 15:29:00 Test Item Value Reference Range Interpretation Comments Lymphocytes (test code = Lymphocytes) 37.4 20.0-40.0 [facility]ownLnqokhnTGCQTUGPFL1079-36-38 15:29:00 Test Item Value Reference Range Interpretation Comments Monocytes (test code = Monocytes) 8.9 2.0-12.0 [facility]ptownNafqndqLBPVHZEQNA8558-54-63 15:29:00 Test Item Value Reference Range Interpretation Comments Segs (test code = Segs) 51.8 45.0-75.0 [facility]ptownXxgkqajBTZXINZUKQ9092-20-79 15:29:00 Test Item Value Reference Range Interpretation Comments Microcyte (test code = 1+ *ABN*(08/12/15 Microcyte) 9:29 AM) [facility] UptownJbbdpipSZRHDMHLYK1024-78-53 15:29:00 Test Item Value Reference Range Interpretation Comments Basophils # (test code 0.1 See_Comment [Aut omated message] The = Basophils #) system which generated this result tra nsmitted reference range : <=0.2. The reference r kat was not used to int erpret this result as normal/abnormal . [id number] 15:29:00 Test Item Value Reference Range Interpretation Comments U Preg (test code = U Negative (08/12/15 9:29 Preg) AM) [facility] [id number] 15:29:00 Test Item Value Reference Range Interpretation Comments eGFR (test code = eGFR) 101 [facility] [id number] 15:29:00 Test Item Value Reference Range Interpretation Comments Creatinine Lvl (test code = Creatinine 0.81 0.50-1.40 Lvl) [facility] [id number] 15:29:00 Test Item Value Reference Range Interpretation Comments CO2 (test code = CO2) 27 24-32 [facility] [id number] 15:29:00 Test Item Value Reference Range Interpretation Comments Calcium Lvl (test code = Calcium Lvl) 9.7 8.5-10.5 [facility] [id number] 15:29:00 Test Item Value Reference Range Interpretation Comments Chloride Lvl (test code = Chloride Lvl) 100 95-109 [facility] [id number] 15:29:00 Test Item Value Reference Range Interpretation Comments BUN (test code = BUN) 13 7-22 [facility]2015-12-14 15:29:00 Test Item Value Reference Range Interpretation Comments Glucose Lvl (test code = Glucose Lvl) 89 70-99 [facility]2015-12-14 15:29:00 Test Item Value Reference Range Interpretation Comments Potassium Lvl (test code = Potassium 4.2 3.5-5.1 Lvl) [facility]2015-12-14 15:29:00 Test Item Value Reference Range Interpretation Comments Sodium Lvl (test code = Sodium Lvl) 134 135-145 [facility]2015-12-14 15:29:00 Test Item Value Reference Range Interpretation Comments AGAP (test code = AGAP) 11.2 10.0-20.0 [facility] CenterFggqpufIXMQMCDCBR4696-01-28 15:29:00 Test Item Value Reference Range Interpretation Comments MPV (test code = MPV) 9.2 7.4-10.4 [facility] CenterAqmvnsfMKUVIHAFFW9363-11-90 15:29:00 Test Item Value Reference Range Interpretation Comments Platelet (test code = Platelet) 307 133-450 [facility] CenterTbbbaftYWJGBRGGDP6803-34-66 15:29:00 Test Item Value Reference Range Interpretation Comments MCH (test code = MCH) 24.3 pg 27.0-31.0 [facility] CenterBkkflqxDRHSOOVWIH1917-51-92 15:29:00 Test Item Value Reference Range Interpretation Comments RDW (test code = RDW) 15.7 11.5-14.5 [facility] CenterJgvuxvaOMJYQLDQVD5769-02-73 15:29:00 Test Item Value Reference Range Interpretation Comments MCHC (test code = MCHC) 31.2 32.0-36.0 [facility] CenterOfspyvvEAOQMAPMDP9588-35-05 15:29:00 Test Item Value Reference Range Interpretation Comments MCV (test code = MCV) 78.0 80.0-98.0 [facility] CenterJpvhkvsUPTQQEOSMK4067-54-49 15:29:00 Test Item Value Reference Range Interpretation Comments WBC (test code = WBC) 8.6 3.7-10.4 [facility] CenterXoclyayVGAJJFQQZB0328-07-24 15:29:00 Test Item Value Reference Range Interpretation Comments Hgb (test code = Hgb) 13.2 12.0-16.0 [place] 845915-12-14 15:29:00 Test Item Value Reference Range Interpretation Comments RBC (test code = RBC) 5.41 4.20-5.40 [facility] CenterZozoebaZQRUGKLHWJ3247-43-16 15:29:00 Test Item Value Reference Range Interpretation Comments Hct (test code = Hct) 42.1 36.0-48.0 [facility] CenterRxawhzhAKROLSRSRQ3308-52-22 15:29:00 Test Item Value Reference Range Interpretation Comments Lymphocytes # (test code = Lymphocytes 3.2 1.0-5.5 #) [facility] CenterKnidwzaHBMAIDQQLW9320-17-36 15:29:00 Test Item Value Reference Range Interpretation Comments Eosinophils # (test code 0.1 See_Comment [A utomated message] The = Eosinophils #) system whic h generated this result tra nsmitted reference range : <=0.5. The reference r kat was not used to int erpret this result as normal/abnormal . [facility] CenterFmvxvgnOQSFQMXYIR5573-99-97 15:29:00 Test Item Value Reference Range Interpretation Comments Monocytes # (test code 0.8 See_Comment [Aut omated message] The = Monocytes #) system which generated this result tra nsmitted reference range : <=0.8. The reference r kat was not used to int erpret this result as normal/abnormal . [facility] CenterVgbypjeLUMXQPKXJI7337-01-58 15:29:00 Test Item Value Reference Range Interpretation Comments Basophils (test code = 0.7 See_Comment [Aut omated message] The Basophils) system which ge nerated this result tra nsmitted reference range : <=1.0. The reference r kat was not used to int erpret this result as normal/abnormal . [facility] CenterJrdrsgdTBITUREKWX5716-38-99 15:29:00 Test Item Value Reference Range Interpretation Comments Segs-Bands # (test code = Segs-Bands #) 4.4 1.5-8.1 [facility] CenterFbijprtVXZOPZPRGZ7934-17-43 15:29:00 Test Item Value Reference Range Interpretation Comments Eosinophils (test code = 1.2 See_Comment [A utomated message] The Eosinophils) system which ge nerated this result tra nsmitted reference range : <=4.0. The reference r kat was not used to int erpret this result as normal/abnormal . [facility] CenterKpijqicXOQLDHHQWU6440-17-33 15:29:00 Test Item Value Reference Range Interpretation Comments Lymphocytes (test code = Lymphocytes) 37.4 20.0-40.0 [facility]ptownNdfftlwDCIGEGJNCM8159-25-16 15:29:00 Test Item Value Reference Range Interpretation Comments Monocytes (test code = Monocytes) 8.9 2.0-12.0 [facility] QltmwouGDIKEIRPOZ6674-68-73 15:29:00 Test Item Value Reference Range Interpretation Comments Segs (test code = Segs) 51.8 45.0-75.0 [facility] UptownJxhplyiGSMCEVQTOY6366-68-78 15:29:00 Test Item Value Reference Range Interpretation Comments Microcyte (test code = 1+ *ABN*(08/12/15 Microcyte) 9:29 AM) [facility]ptownXjdnvpfHTTIYMJAUM9739-63-92 15:29:00 Test Item Value Reference Range Interpretation Comments Basophils # (test code 0.1 See_Comment [Aut omated message] The = Basophils #) system which generated this result tra nsmitted reference range : <=0.2. The reference r kat was not used to int erpret this result as normal/abnormal . [facility] [id number] 15:29:00 Test Item Value Reference Range Interpretation Comments U Preg (test code = U Negative (08/12/15 9:29 Preg) AM) [facility]CHE[facility] [id number] 15:29:00 Test Item Value Reference Range Interpretation Comments eGFR (test code = eGFR) 101 [facility] YRCPR8187-73-53 15:29:00 Test Item Value Reference Range Interpretation Comments Creatinine Lvl (test code = Creatinine 0.81 0.50-1.40 Lvl) [facility] OTBIW2257-12-72 15:29:00 Test Item Value Reference Range Interpretation Comments CO2 (test code = CO2) 27 24-32 [facility] [id number] 15:29:00 Test Item Value Reference Range Interpretation Comments Calcium Lvl (test code = Calcium Lvl) 9.7 8.5-10.5 [facility] BSWVU5731-05-72 15:29:00 Test Item Value Reference Range Interpretation Comments Chloride Lvl (test code = Chloride Lvl) 100 95-109 [facility] FKKPV8753-80-35 15:29:00 Test Item Value Reference Range Interpretation Comments BUN (test code = BUN) 13 7-22 [facility]2015-12-14 15:29:00 Test Item Value Reference Range Interpretation Comments Glucose Lvl (test code = Glucose Lvl) 89 70-99 [facility]2015-12-14 15:29:00 Test Item Value Reference Range Interpretation Comments Potassium Lvl (test code = Potassium 4.2 3.5-5.1 Lvl) [facility]2015-12-14 15:29:00 Test Item Value Reference Range Interpretation Comments Sodium Lvl (test code = Sodium Lvl) 134 135-145 [facility]2015-12-14 15:29:00 Test Item Value Reference Range Interpretation Comments AGAP (test code = AGAP) 11.2 10.0-20.0 [facility] CenterHcwoymqKZRVRCXBAH1855-07-50 15:29:00 Test Item Value Reference Range Interpretation Comments MPV (test code = MPV) 9.2 7.4-10.4 [facility] CenterVechwvrPOPHWBYWOK7845-31-49 15:29:00 Test Item Value Reference Range Interpretation Comments Platelet (test code = Platelet) 307 133-450 [facility] CenterKczaljmCDEDJGICOB9460-70-13 15:29:00 Test Item Value Reference Range Interpretation Comments MCH (test code = MCH) 24.3 pg 27.0-31.0 [facility] CenterKkuqcvuJOHOTWISHO0779-27-86 15:29:00 Test Item Value Reference Range Interpretation Comments RDW (test code = RDW) 15.7 11.5-14.5 [facility] CenterNgtsbduUPMUEFXLGJ9768-82-44 15:29:00 Test Item Value Reference Range Interpretation Comments MCHC (test code = MCHC) 31.2 32.0-36.0 [facility] CenterAbsbxbeEVRSIUPYEK6288-55-26 15:29:00 Test Item Value Reference Range Interpretation Comments MCV (test code = MCV) 78.0 80.0-98.0 [facility] CenterQteehnpBKZXNUJBQK5960-31-62 15:29:00 Test Item Value Reference Range Interpretation Comments WBC (test code = WBC) 8.6 3.7-10.4 [facility] CenterAxpkrigYBPAUMYVLL7992-86-93 15:29:00 Test Item Value Reference Range Interpretation Comments Hgb (test code = Hgb) 13.2 12.0-16.0 [place] 845915-12-14 15:29:00 Test Item Value Reference Range Interpretation Comments RBC (test code = RBC) 5.41 4.20-5.40 [facility] CenterGqxeaylMSHVTISVLS2718-37-82 15:29:00 Test Item Value Reference Range Interpretation Comments Hct (test code = Hct) 42.1 36.0-48.0 [facility] CenterHdkucypRISRDFJALV2044-58-04 15:29:00 Test Item Value Reference Range Interpretation Comments Lymphocytes # (test code = Lymphocytes 3.2 1.0-5.5 #) [facility] CenterJitdzipPYQDRZZXOM0071-44-06 15:29:00 Test Item Value Reference Range Interpretation Comments Eosinophils # (test code 0.1 See_Comment [A utomated message] The = Eosinophils #) system whic h generated this result tra nsmitted reference range : <=0.5. The reference r kat was not used to int erpret this result as normal/abnormal . [facility] CenterMorhfvfKWBFMHYEJY9710-08-52 15:29:00 Test Item Value Reference Range Interpretation Comments Monocytes # (test code 0.8 See_Comment [Aut omated message] The = Monocytes #) system which generated this result tra nsmitted reference range : <=0.8. The reference r kat was not used to int erpret this result as normal/abnormal . [facility] CenterMbkaajiQXIWLCLDIY2262-75-62 15:29:00 Test Item Value Reference Range Interpretation Comments Basophils (test code = 0.7 See_Comment [Aut omated message] The Basophils) system which ge nerated this result tra nsmitted reference range : <=1.0. The reference r kat was not used to int erpret this result as normal/abnormal . [facility] CenterNskqugsTELWKNXZOU9306-37-92 15:29:00 Test Item Value Reference Range Interpretation Comments Segs-Bands # (test code = Segs-Bands #) 4.4 1.5-8.1 [facility] CenterQtvvpjvUJUPYRFIPT1573-06-72 15:29:00 Test Item Value Reference Range Interpretation Comments Eosinophils (test code = 1.2 See_Comment [A utomated message] The Eosinophils) system which ge nerated this result tra nsmitted reference range : <=4.0. The reference r kat was not used to int erpret this result as normal/abnormal . [facility] CenterQikbpmzWVWWOZMVMR9707-57-77 15:29:00 Test Item Value Reference Range Interpretation Comments Lymphocytes (test code = Lymphocytes) 37.4 20.0-40.0 [facility]ptownMibqadgMQYUJZQZOS6880-63-80 15:29:00 Test Item Value Reference Range Interpretation Comments Monocytes (test code = Monocytes) 8.9 2.0-12.0 [facility]WbcujdkONVJCQGMTO7483-57-37 15:29:00 Test Item Value Reference Range Interpretation Comments Segs (test code = Segs) 51.8 45.0-75.0 [facility] InstituteEdxxiyjWAWLLQCMDP4353-50-55 15:29:00 Test Item Value Reference Range Interpretation Comments Microcyte (test code = 1+ *ABN*(08/12/15 Microcyte) 9:29 AM) [facility] InstituteJspqimdNCBWYHJQEW7664-37-78 15:29:00 Test Item Value Reference Range Interpretation Comments Basophils # (test code 0.1 See_Comment [Aut omated message] The = Basophils #) system which generated this result tra nsmitted reference range : <=0.2. The reference r kat was not used to int erpret this result as normal/abnormal . [facility] [id number] 15:29:00 Test Item Value Reference Range Interpretation Comments U Preg (test code = U Negative (08/12/15 9:29 Preg) AM) [facility]CHE[facility] [id number] 15:29:00 Test Item Value Reference Range Interpretation Comments eGFR (test code = eGFR) 101 [facility] [id number] 15:29:00 Test Item Value Reference Range Interpretation Comments Creatinine Lvl (test code = Creatinine 0.81 0.50-1.40 Lvl) [facility] [id number] 15:29:00 Test Item Value Reference Range Interpretation Comments CO2 (test code = CO2) 27 24-32 [facility] [id number] 15:29:00 Test Item Value Reference Range Interpretation Comments Calcium Lvl (test code = Calcium Lvl) 9.7 8.5-10.5 [facility]CHE[facility] [id number] 15:29:00 Test Item Value Reference Range Interpretation Comments Chloride Lvl (test code = Chloride Lvl) 100 95-109 [facility]CHE[facility] NXETK9957-83-78 15:29:00 Test Item Value Reference Range Interpretation Comments BUN (test code = BUN) 13 7-22 [facility]2015-12-14 15:29:00 Test Item Value Reference Range Interpretation Comments Glucose Lvl (test code = Glucose Lvl) 89 70-99 [facility]2015-12-14 15:29:00 Test Item Value Reference Range Interpretation Comments Potassium Lvl (test code = Potassium 4.2 3.5-5.1 Lvl) [facility]2015-12-14 15:29:00 Test Item Value Reference Range Interpretation Comments Sodium Lvl (test code = Sodium Lvl) 134 135-145 [facility]2015-12-14 15:29:00 Test Item Value Reference Range Interpretation Comments AGAP (test code = AGAP) 11.2 10.0-20.0 [facility] CenterLmqxpeoGFNVYTDNAG0811-22-83 15:29:00 Test Item Value Reference Range Interpretation Comments MPV (test code = MPV) 9.2 7.4-10.4 [facility] CenterCskvygfQGSYJPXGTO1765-08-08 15:29:00 Test Item Value Reference Range Interpretation Comments Platelet (test code = Platelet) 307 133-450 [facility] CenterZjlscafMCJXAVGPEQ6246-32-91 15:29:00 Test Item Value Reference Range Interpretation Comments MCH (test code = MCH) 24.3 pg 27.0-31.0 [facility] CenterOmwoxhxPHMYYKMMDQ9034-57-45 15:29:00 Test Item Value Reference Range Interpretation Comments RDW (test code = RDW) 15.7 11.5-14.5 [facility] CenterEkinkypEOVDSGZHYT3633-57-47 15:29:00 Test Item Value Reference Range Interpretation Comments MCHC (test code = MCHC) 31.2 32.0-36.0 [facility] CenterCzrbwptWRVLJBDYDK6709-49-83 15:29:00 Test Item Value Reference Range Interpretation Comments MCV (test code = MCV) 78.0 80.0-98.0 [facility] CenterXnhojslDYDVXJMAXF6636-55-53 15:29:00 Test Item Value Reference Range Interpretation Comments WBC (test code = WBC) 8.6 3.7-10.4 [facility] CenterQtbpmzeUDLPSEHBAA0824-88-73 15:29:00 Test Item Value Reference Range Interpretation Comments Hgb (test code = Hgb) 13.2 12.0-16.0 [place] 845915-12-14 15:29:00 Test Item Value Reference Range Interpretation Comments RBC (test code = RBC) 5.41 4.20-5.40 [facility] CenterFelngacZDLGKBNWWP7292-04-72 15:29:00 Test Item Value Reference Range Interpretation Comments Hct (test code = Hct) 42.1 36.0-48.0 [facility] CenterSddtzuwNRAFOVZJCB6614-31-71 15:29:00 Test Item Value Reference Range Interpretation Comments Lymphocytes # (test code = Lymphocytes 3.2 1.0-5.5 #) [facility] CenterDbeimonQUTEYQHSLH6566-17-26 15:29:00 Test Item Value Reference Range Interpretation Comments Eosinophils # (test code 0.1 See_Comment [A utomated message] The = Eosinophils #) system whic h generated this result tra nsmitted reference range : <=0.5. The reference r kat was not used to int erpret this result as normal/abnormal . [facility] CenterUeqdyurVCSELKJXJI0173-33-20 15:29:00 Test Item Value Reference Range Interpretation Comments Monocytes # (test code 0.8 See_Comment [Aut omated message] The = Monocytes #) system which generated this result tra nsmitted reference range : <=0.8. The reference r kat was not used to int erpret this result as normal/abnormal . [facility] CenterVlscohyOERLVTNGFT0350-81-30 15:29:00 Test Item Value Reference Range Interpretation Comments Basophils (test code = 0.7 See_Comment [Aut omated message] The Basophils) system which ge nerated this result tra nsmitted reference range : <=1.0. The reference r kat was not used to int erpret this result as normal/abnormal . [facility] CenterHyjmwndPESZISGWGV7947-17-48 15:29:00 Test Item Value Reference Range Interpretation Comments Segs-Bands # (test code = Segs-Bands #) 4.4 1.5-8.1 [facility] CenterYshtipiJIIOMXQRSX3417-37-21 15:29:00 Test Item Value Reference Range Interpretation Comments Eosinophils (test code = 1.2 See_Comment [A utomated message] The Eosinophils) system which ge nerated this result tra nsmitted reference range : <=4.0. The reference r kat was not used to int erpret this result as normal/abnormal . [facility] CenterXhvrvbaTIPOLWWQEK6363-41-83 15:29:00 Test Item Value Reference Range Interpretation Comments Lymphocytes (test code = Lymphocytes) 37.4 20.0-40.0 [facility]ownDpbqayfZIXMPGTUCU8993-06-77 15:29:00 Test Item Value Reference Range Interpretation Comments Monocytes (test code = Monocytes) 8.9 2.0-12.0 [facility]CciwwjhQHSCFUMZLQ2586-39-92 15:29:00 Test Item Value Reference Range Interpretation Comments Segs (test code = Segs) 51.8 45.0-75.0 [facility] InstituteHeairrdOKPLXNFGPV3666-86-17 15:29:00 Test Item Value Reference Range Interpretation Comments Microcyte (test code = 1+ *ABN*(08/12/15 Microcyte) 9:29 AM) [facility] HospitalCfichyjXTGQRKYHVX7608-45-62 15:29:00 Test Item Value Reference Range Interpretation Comments Basophils # (test code 0.1 See_Comment [Aut omated message] The = Basophils #) system which generated this result tra nsmitted reference range : <=0.2. The reference r kat was not used to int erpret this result as normal/abnormal . [facility] [id number] 15:29:00 Test Item Value Reference Range Interpretation Comments U Preg (test code = U Negative (08/12/15 9:29 Preg) AM) [facility]CHE[facility] OBWKB2046-99-54 15:29:00 Test Item Value Reference Range Interpretation Comments eGFR (test code = eGFR) 101 [facility]CHE[facility] LZERF9971-56-87 15:29:00 Test Item Value Reference Range Interpretation Comments Creatinine Lvl (test code = Creatinine 0.81 0.50-1.40 Lvl) [facility] XJVLK9583-27-79 15:29:00 Test Item Value Reference Range Interpretation Comments CO2 (test code = CO2) 27 24-32 [facility] [id number] 15:29:00 Test Item Value Reference Range Interpretation Comments Calcium Lvl (test code = Calcium Lvl) 9.7 8.5-10.5 [facility] [id number] 15:29:00 Test Item Value Reference Range Interpretation Comments Chloride Lvl (test code = Chloride Lvl) 100 95-109 [facility]CHE[facility] SHDEX9467-00-04 15:29:00 Test Item Value Reference Range Interpretation Comments BUN (test code = BUN) 13 7-22 [facility]2015-12-14 15:29:00 Test Item Value Reference Range Interpretation Comments Glucose Lvl (test code = Glucose Lvl) 89 70-99 [facility]2015-12-14 15:29:00 Test Item Value Reference Range Interpretation Comments Potassium Lvl (test code = Potassium 4.2 3.5-5.1 Lvl) [facility]2015-12-14 15:29:00 Test Item Value Reference Range Interpretation Comments Sodium Lvl (test code = Sodium Lvl) 134 135-145 [facility]2015-12-14 15:29:00 Test Item Value Reference Range Interpretation Comments AGAP (test code = AGAP) 11.2 10.0-20.0 [facility] CenterEahvnvyJROHFEUGBZ3472-54-73 15:29:00 Test Item Value Reference Range Interpretation Comments MPV (test code = MPV) 9.2 7.4-10.4 [facility] CenterVwltahqHFPDIDCXTA0130-03-63 15:29:00 Test Item Value Reference Range Interpretation Comments Platelet (test code = Platelet) 307 133-450 [facility] CenterZyuflutAAVDONQYQE3729-37-88 15:29:00 Test Item Value Reference Range Interpretation Comments MCH (test code = MCH) 24.3 pg 27.0-31.0 [facility] CenterZvxprioWZZIYTCDAJ0382-59-60 15:29:00 Test Item Value Reference Range Interpretation Comments RDW (test code = RDW) 15.7 11.5-14.5 [facility] CenterVsoocfpRRXUYLPCMM5231-79-20 15:29:00 Test Item Value Reference Range Interpretation Comments MCHC (test code = MCHC) 31.2 32.0-36.0 [facility] CenterXxydwkeSZPWTAIPDK5967-09-88 15:29:00 Test Item Value Reference Range Interpretation Comments MCV (test code = MCV) 78.0 80.0-98.0 [facility] CenterPtjrspdGVIWLTTVBF4961-49-27 15:29:00 Test Item Value Reference Range Interpretation Comments WBC (test code = WBC) 8.6 3.7-10.4 [facility] CenterOkwzmggMAELWKYUJJ7208-00-74 15:29:00 Test Item Value Reference Range Interpretation Comments Hgb (test code = Hgb) 13.2 12.0-16.0 [facility] CenterDevjsmuJVSYWCTZWJ5620-20-97 15:29:00 Test Item Value Reference Range Interpretation Comments RBC (test code = RBC) 5.41 4.20-5.40 [facility] CenterHvstnsoCNQFJYGJQV0130-62-78 15:29:00 Test Item Value Reference Range Interpretation Comments Hct (test code = Hct) 42.1 36.0-48.0 [facility] CenterOowfqsxHMRVZRSRXJ0872-08-01 15:29:00 Test Item Value Reference Range Interpretation Comments Lymphocytes # (test code = Lymphocytes 3.2 1.0-5.5 #) [facility] CenterZejswgoHKHPPGIJUV9245-03-88 15:29:00 Test Item Value Reference Range Interpretation Comments Eosinophils # (test code 0.1 See_Comment [A utomated message] The = Eosinophils #) system whic h generated this result tra nsmitted reference range : <=0.5. The reference r kat was not used to int erpret this result as normal/abnormal . [facility] CenterJbtvrzaRNZGTKWJNO3720-33-87 15:29:00 Test Item Value Reference Range Interpretation Comments Monocytes # (test code 0.8 See_Comment [Aut omated message] The = Monocytes #) system which generated this result tra nsmitted reference range : <=0.8. The reference r kat was not used to int erpret this result as normal/abnormal . [facility] CenterGahxgezXBJWAMAORZ0046-18-71 15:29:00 Test Item Value Reference Range Interpretation Comments Basophils (test code = 0.7 See_Comment [Aut omated message] The Basophils) system which ge nerated this result tra nsmitted reference range : <=1.0. The reference r kat was not used to int erpret this result as normal/abnormal . [facility] CenterLuosdynLQLXIQLLHR1718-36-15 15:29:00 Test Item Value Reference Range Interpretation Comments Segs-Bands # (test code = Segs-Bands #) 4.4 1.5-8.1 [facility] CenterPnconisNYOZHJQCTB5670-14-67 15:29:00 Test Item Value Reference Range Interpretation Comments Eosinophils (test code = 1.2 See_Comment [A utomated message] The Eosinophils) system which ge nerated this result tra nsmitted reference range : <=4.0. The reference r kat was not used to int erpret this result as normal/abnormal . [facility] CenterLynnijaUJNOOLKPJS5123-01-80 15:29:00 Test Item Value Reference Range Interpretation Comments Lymphocytes (test code = Lymphocytes) 37.4 20.0-40.0 [facility]ownGqzxzlfFTXGONNYCI5300-96-48 15:29:00 Test Item Value Reference Range Interpretation Comments Monocytes (test code = Monocytes) 8.9 2.0-12.0 [facility]ptownKldopzaRTVPXMHWSH9886-25-52 15:29:00 Test Item Value Reference Range Interpretation Comments Segs (test code = Segs) 51.8 45.0-75.0 [facility]IannpzbICERKHWOUC6688-85-07 15:29:00 Test Item Value Reference Range Interpretation Comments Microcyte (test code = 1+ *ABN*(08/12/15 Microcyte) 9:29 AM) [facility] HospitalYcqumgwSYAWFRBRWC8770-33-60 15:29:00 Test Item Value Reference Range Interpretation Comments Basophils # (test code 0.1 See_Comment [Aut omated message] The = Basophils #) system which generated this result tra nsmitted reference range : <=0.2. The reference r kat was not used to int erpret this result as normal/abnormal . [facility] HospitalURINE [id number] 15:29:00 Test Item Value Reference Range Interpretation Comments U Preg (test code = U Negative (08/12/15 9:29 Preg) AM) [facility]CHEM NFAQB2161-51-95 15:29:00 Test Item Value Reference Range Interpretation Comments eGFR (test code = eGFR) 101 [facility] HospitalCHE[facility] AXKIX5343-98-56 15:29:00 Test Item Value Reference Range Interpretation Comments Creatinine Lvl (test code = Creatinine 0.81 0.50-1.40 Lvl) [facility] [id number] 15:29:00 Test Item Value Reference Range Interpretation Comments CO2 (test code = CO2) 27 24-32 [facility]CHE[facility] YWXFC9131-09-73 15:29:00 Test Item Value Reference Range Interpretation Comments Calcium Lvl (test code = Calcium Lvl) 9.7 8.5-10.5 [facility]CHE[facility] RTBUH3450-15-15 15:29:00 Test Item Value Reference Range Interpretation Comments Chloride Lvl (test code = Chloride Lvl) 100 95-109 [facility]CHE[facility] BPZVK9541-14-55 15:29:00 Test Item Value Reference Range Interpretation Comments BUN (test code = BUN) 03-20 [facility]2015-12-14 15:29:00 Test Item Value Reference Range Interpretation Comments Glucose Lvl (test code = Glucose Lvl) 89 70- [facility]2015-12-14 15:29:00 Test Item Value Reference Range Interpretation Comments Potassium Lvl (test code = Potassium 4.2 3.5-5.1 Lvl) [facility]2015-12-14 15:29:00 Test Item Value Reference Range Interpretation Comments eGFR (test code = eGFR) 101 [facility]2015-12-14 15:29:00 Test Item Value Reference Range Interpretation Comments Creatinine Lvl (test code = Creatinine 0.81 0.50-1.40 Lvl) [facility]2015-12-14 15:29:00 Test Item Value Reference Range Interpretation Comments CO2 (test code = CO2) 27 24-32 [facility]2015-12-14 15:29:00 Test Item Value Reference Range Interpretation Comments Calcium Lvl (test code = Calcium Lvl) 9.7 8.5-10.5 [facility]2015-12-14 15:29:00 Test Item Value Reference Range Interpretation Comments Sodium Lvl (test code = Sodium Lvl) 134 135-145 [facility]2015-12-14 15:29:00 Test Item Value Reference Range Interpretation Comments Chloride Lvl (test code = Chloride Lvl) 100 95-109 [facility]2015-12-14 15:29:00 Test Item Value Reference Range Interpretation Comments BUN (test code = BUN) 03-20 [facility]2015-12-14 15:29:00 Test Item Value Reference Range Interpretation Comments Glucose Lvl (test code = Glucose Lvl) 89 -99 [facility]2015-12-14 15:29:00 Test Item Value Reference Range Interpretation Comments Potassium Lvl (test code = Potassium 4.2 3.5-5.1 Lvl) [facility]2015-12-14 15:29:00 Test Item Value Reference Range Interpretation Comments Sodium Lvl (test code = Sodium Lvl) 134 135-145 [facility]2015-12-14 15:29:00 Test Item Value Reference Range Interpretation Comments AGAP (test code = AGAP) 11.2 10.0-20.0 [facility] HospitalWlieutaHYKVOHLJIG0880-09-07 15:29:00 Test Item Value Reference Range Interpretation Comments MPV (test code = MPV) 9.2 7.4-10.4 [facility]ZbfipfvVAJNKMXSDX3932-40-26 15:29:00 Test Item Value Reference Range Interpretation Comments Platelet (test code = Platelet) 307 133-450 [facility] HospitalRhtrdeyFMSCPNNDUU5069-57-14 15:29:00 Test Item Value Reference Range Interpretation Comments MCH (test code = MCH) 24.3 pg 27.0-31.0 [facility] HospitalMgrmoseRCDFGOUJRF2973-65-93 15:29:00 Test Item Value Reference Range Interpretation Comments RDW (test code = RDW) 15.7 11.5-14.5 [facility]2015-12-14 15:29:00 Test Item Value Reference Range Interpretation Comments AGAP (test code = AGAP) 11.2 10.0-20.0 [facility] HospitalKcvzwpjOYAITJEHRS8189-31-98 15:29:00 Test Item Value Reference Range Interpretation Comments MCHC (test code = MCHC) 31.2 32.0-36.0 [facility] HospitalAoukwjdOVTPGDEXUS9825-54-85 15:29:00 Test Item Value Reference Range Interpretation Comments MCV (test code = MCV) 78.0 80.0-98.0 [facility] CenterUxkkcxwEWTVQYJVMA5071-31-49 15:29:00 Test Item Value Reference Range Interpretation Comments WBC (test code = WBC) 8.6 3.7-10.4 [facility] CenterPoqmtpaYWCTXPWGTK0700-27-54 15:29:00 Test Item Value Reference Range Interpretation Comments Hgb (test code = Hgb) 13.2 12.0-16.0 [facility] CenterSbmkazpLGPHXQWRDM5907-16-50 15:29:00 Test Item Value Reference Range Interpretation Comments RBC (test code = RBC) 5.41 4.20-5.40 [facility]CyoggfzXRNBYRLAQX3999-31-57 15:29:00 Test Item Value Reference Range Interpretation Comments Hct (test code = Hct) 42.1 36.0-48.0 [facility] CenterMrqdtocFATRMYPMMC2379-47-00 15:29:00 Test Item Value Reference Range Interpretation Comments Lymphocytes # (test code = Lymphocytes 3.2 1.0-5.5 #) [facility] CenterGhsdzghJVPLDRYROE3715-80-05 15:29:00 Test Item Value Reference Range Interpretation Comments Eosinophils # (test code 0.1 See_Comment [A utomated message] The = Eosinophils #) system whic h generated this result tra nsmitted reference range : <=0.5. The reference r kat was not used to int erpret this result as normal/abnormal . [facility] CenterKzapndfIDMHJUDIAH6692-53-20 15:29:00 Test Item Value Reference Range Interpretation Comments Monocytes # (test code 0.8 See_Comment [Aut omated message] The = Monocytes #) system which generated this result tra nsmitted reference range : <=0.8. The reference r kat was not used to int erpret this result as normal/abnormal . [facility] CenterLafmhgnNUBMLXAECK8448-12-30 15:29:00 Test Item Value Reference Range Interpretation Comments Basophils (test code = 0.7 See_Comment [Aut omated message] The Basophils) system which ge nerated this result tra nsmitted reference range : <=1.0. The reference r kat was not used to int erpret this result as normal/abnormal . [facility] CenterYexgvwjPRIPAJYKRL5514-10-93 15:29:00 Test Item Value Reference Range Interpretation Comments MPV (test code = MPV) 9.2 7.4-10.4 [facility] CenterWszmezaHFWORVNPPV4328-81-90 15:29:00 Test Item Value Reference Range Interpretation Comments Segs-Bands # (test code = Segs-Bands #) 4.4 1.5-8.1 [facility] CenterLoazvkzFETHXKLHGB2580-82-68 15:29:00 Test Item Value Reference Range Interpretation Comments Eosinophils (test code = 1.2 See_Comment [A utomated message] The Eosinophils) system which ge nerated this result tra nsmitted reference range : <=4.0. The reference r kat was not used to int erpret this result as normal/abnormal . [facility] CenterAimklnlTHXSTJQXJF9486-39-46 15:29:00 Test Item Value Reference Range Interpretation Comments Lymphocytes (test code = Lymphocytes) 37.4 20.0-40.0 [facility] CenterCdyzcpnSKPNWHEPZS9928-22-70 15:29:00 Test Item Value Reference Range Interpretation Comments Monocytes (test code = Monocytes) 8.9 2.0-12.0 [facility] UptownRaywywbGZITXWXGWX9700-04-85 15:29:00 Test Item Value Reference Range Interpretation Comments Segs (test code = Segs) 51.8 45.0-75.0 [facility] UptownHoxbwybDREMXKZMXW7734-97-09 15:29:00 Test Item Value Reference Range Interpretation Comments Microcyte (test code = 1+ *ABN*(08/12/15 Microcyte) 9:29 AM) [facility] UptownUuknwzrMOYYZTCFYE0209-01-34 15:29:00 Test Item Value Reference Range Interpretation Comments Basophils # (test code 0.1 See_Comment [Aut omated message] The = Basophils #) system which generated this result tra nsmitted reference range : <=0.2. The reference r kat was not used to int erpret this result as normal/abnormal . [facility] PVDI4806-05-78 15:29:00 Test Item Value Reference Range Interpretation Comments U Preg (test code = U Negative (08/12/15 9:29 Preg) AM) [facility] UptownWrrswuiHOQECCDERL0105-24-01 15:29:00 Test Item Value Reference Range Interpretation Comments Platelet (test code = Platelet) 307 133-450 [facility] UptownHwgchcdBPVOOHWJWI8032-42-57 15:29:00 Test Item Value Reference Range Interpretation Comments MCH (test code = MCH) 24.3 pg 27.0-31.0 [facility] InstituteCarltshSHHECXZHGO4363-98-13 15:29:00 Test Item Value Reference Range Interpretation Comments RDW (test code = RDW) 15.7 11.5-14.5 [facility] UptownDjlhxfbDSMWWNKAIQ6822-29-62 15:29:00 Test Item Value Reference Range Interpretation Comments MCHC (test code = MCHC) 31.2 32.0-36.0 [facility]gihfjhCGRDLDMKCE7422-01-11 15:29:00 Test Item Value Reference Range Interpretation Comments MCV (test code = MCV) 78.0 80.0-98.0 [facility] UptownYbonyhoYPSBUIFFTM4270-69-22 15:29:00 Test Item Value Reference Range Interpretation Comments WBC (test code = WBC) 8.6 3.7-10.4 [facility] UptownVwqvrcfYYFDCTVDQP0691-52-43 15:29:00 Test Item Value Reference Range Interpretation Comments Hgb (test code = Hgb) 13.2 12.0-16.0 [facility] CenterEqvoazvSXIVHQNQDZ4594-34-27 15:29:00 Test Item Value Reference Range Interpretation Comments RBC (test code = RBC) 5.41 4.20-5.40 [facility] CenterYgvxurlLXTRXDNYYN0400-71-41 15:29:00 Test Item Value Reference Range Interpretation Comments Hct (test code = Hct) 42.1 36.0-48.0 [facility] CenterXcurlrtOGXGDYEUNB3558-20-82 15:29:00 Test Item Value Reference Range Interpretation Comments Lymphocytes # (test code = Lymphocytes 3.2 1.0-5.5 #) [facility] CenterAcyphwgJXWKWMNIGZ9292-16-91 15:29:00 Test Item Value Reference Range Interpretation Comments Eosinophils # (test code 0.1 See_Comment [A utomated message] The = Eosinophils #) system whic h generated this result tra nsmitted reference range : <=0.5. The reference r kat was not used to int erpret this result as normal/abnormal . [facility] CenterOstjjghQUPASLIGOS3023-39-39 15:29:00 Test Item Value Reference Range Interpretation Comments Monocytes # (test code 0.8 See_Comment [Aut omated message] The = Monocytes #) system which generated this result tra nsmitted reference range : <=0.8. The reference r kat was not used to int erpret this result as normal/abnormal . [facility] CenterGvshadtDVTXQYZCRG2821-11-17 15:29:00 Test Item Value Reference Range Interpretation Comments Basophils (test code = 0.7 See_Comment [Aut omated message] The Basophils) system which ge nerated this result tra nsmitted reference range : <=1.0. The reference r kat was not used to int erpret this result as normal/abnormal . [facility] CenterWemuparFWLCUQTORR4204-44-55 15:29:00 Test Item Value Reference Range Interpretation Comments Segs-Bands # (test code = Segs-Bands #) 4.4 1.5-8.1 [facility] CenterBpzddkqORUDKFIYCE6410-37-58 15:29:00 Test Item Value Reference Range Interpretation Comments Eosinophils (test code = 1.2 See_Comment [A utomated message] The Eosinophils) system which ge nerated this result tra nsmitted reference range : <=4.0. The reference r kat was not used to int erpret this result as normal/abnormal . [facility] UptownVsjevfzIBLADTVUZX5464-88-55 15:29:00 Test Item Value Reference Range Interpretation Comments Lymphocytes (test code = Lymphocytes) 37.4 20.0-40.0 [facility] UptownVpxaguuVYLZVYJLJR6667-95-72 15:29:00 Test Item Value Reference Range Interpretation Comments Monocytes (test code = Monocytes) 8.9 2.0-12.0 [facility] UptownJhjsuqqLMZYQFLDGC6152-98-86 15:29:00 Test Item Value Reference Range Interpretation Comments Segs (test code = Segs) 51.8 45.0-75.0 [facility] UptownUviyzyvLIUUUKUWMQ2902-64-53 15:29:00 Test Item Value Reference Range Interpretation Comments Microcyte (test code = 1+ *ABN*(08/12/15 Microcyte) 9:29 AM) [facility] UptownEtrluwmFHTTRHIRLW7407-11-60 15:29:00 Test Item Value Reference Range Interpretation Comments Basophils # (test code 0.1 See_Comment [Aut omated message] The = Basophils #) system which generated this result tra nsmitted reference range : <=0.2. The reference r kat was not used to int erpret this result as normal/abnormal . [facility]ownannURINE MYGS4044-41-13 15:29:00 Test Item Value Reference Range Interpretation Comments U Preg (test code = U Negative (08/12/15 9:29 Preg) AM) [facility]ownannCHEM EQLDI2835-42-78 15:29:00 Test Item Value Reference Range Interpretation Comments eGFR (test code = eGFR) 101 [facility]ownannCHEM KFHUP3731-79-89 15:29:00 Test Item Value Reference Range Interpretation Comments Creatinine Lvl (test code = Creatinine 0.81 0.50-1.40 Lvl) [facility]ownannCHEM IEMFC2551-04-38 15:29:00 Test Item Value Reference Range Interpretation Comments CO2 (test code = CO2) 27 24-32 [facility]ownannCHEM CBBDR9726-50-24 15:29:00 Test Item Value Reference Range Interpretation Comments Calcium Lvl (test code = Calcium Lvl) 9.7 8.5-10.5 [facility]annCHE[facility] QXMDS3993-42-01 15:29:00 Test Item Value Reference Range Interpretation Comments Chloride Lvl (test code = Chloride Lvl) 100 95-109 [facility]ownannCHEM QQUQI3820-77-15 15:29:00 Test Item Value Reference Range Interpretation Comments BUN (test code = BUN) 13 7-22 [facility]2015-12-14 15:29:00 Test Item Value Reference Range Interpretation Comments Glucose Lvl (test code = Glucose Lvl) 89 70-99 [facility]2015-12-14 15:29:00 Test Item Value Reference Range Interpretation Comments Potassium Lvl (test code = Potassium 4.2 3.5-5.1 Lvl) [facility]2015-12-14 15:29:00 Test Item Value Reference Range Interpretation Comments Sodium Lvl (test code = Sodium Lvl) 134 135-145 [facility]2015-12-14 15:29:00 Test Item Value Reference Range Interpretation Comments AGAP (test code = AGAP) 11.2 10.0-20.0 [facility] CenterOftfpuiPGKUPBBTNL5601-28-67 15:29:00 Test Item Value Reference Range Interpretation Comments MPV (test code = MPV) 9.2 7.4-10.4 [facility] CenterEmeatuqQFIKEWGAGT7016-17-66 15:29:00 Test Item Value Reference Range Interpretation Comments Platelet (test code = Platelet) 307 133-450 [facility] CenterHjhouxzTJCQVXQDKY2571-09-46 15:29:00 Test Item Value Reference Range Interpretation Comments MCH (test code = MCH) 24.3 pg 27.0-31.0 [facility] CenterXbtmouoOOFSDALKEC1503-73-93 15:29:00 Test Item Value Reference Range Interpretation Comments RDW (test code = RDW) 15.7 11.5-14.5 [facility] CenterLutouasANAHIORTZJ5351-37-15 15:29:00 Test Item Value Reference Range Interpretation Comments MCHC (test code = MCHC) 31.2 32.0-36.0 [facility] CenterQkfqegvNMVCXGEJXS4586-28-08 15:29:00 Test Item Value Reference Range Interpretation Comments MCV (test code = MCV) 78.0 80.0-98.0 [facility] CenterDmgdqirTSVQNYLRMD8490-86-05 15:29:00 Test Item Value Reference Range Interpretation Comments WBC (test code = WBC) 8.6 3.7-10.4 [place] 845915-12-14 15:29:00 Test Item Value Reference Range Interpretation Comments Hgb (test code = Hgb) 13.2 12.0-16.0 [facility] CenterYyuxppiCHSYNOIFSQ5566-57-64 15:29:00 Test Item Value Reference Range Interpretation Comments RBC (test code = RBC) 5.41 4.20-5.40 [facility] CenterWrwvndmBQBDRIFFAF6939-04-83 15:29:00 Test Item Value Reference Range Interpretation Comments Hct (test code = Hct) 42.1 36.0-48.0 [facility] CenterFrhrbraZLPDTOKGPO6816-68-28 15:29:00 Test Item Value Reference Range Interpretation Comments Lymphocytes # (test code = Lymphocytes 3.2 1.0-5.5 #) [facility] CenterWfiliqeMIJJBBAHMT4495-21-58 15:29:00 Test Item Value Reference Range Interpretation Comments Eosinophils # (test code 0.1 See_Comment [A utomated message] The = Eosinophils #) system whic h generated this result tra nsmitted reference range : <=0.5. The reference r kat was not used to int erpret this result as normal/abnormal . [facility] CenterGrrcsewUNKMMLQPRY5501-79-28 15:29:00 Test Item Value Reference Range Interpretation Comments Monocytes # (test code 0.8 See_Comment [Aut omated message] The = Monocytes #) system which generated this result tra nsmitted reference range : <=0.8. The reference r kat was not used to int erpret this result as normal/abnormal . [facility] CenterZscxojkDJXBYZSNXK7508-49-66 15:29:00 Test Item Value Reference Range Interpretation Comments Basophils (test code = 0.7 See_Comment [Aut omated message] The Basophils) system which ge nerated this result tra nsmitted reference range : <=1.0. The reference r kat was not used to int erpret this result as normal/abnormal . [facility] CenterQigloccHKJMOXKDEN4551-90-60 15:29:00 Test Item Value Reference Range Interpretation Comments Segs-Bands # (test code = Segs-Bands #) 4.4 1.5-8.1 [facility] CenterGcskeokFAVUNXEONO4651-38-20 15:29:00 Test Item Value Reference Range Interpretation Comments Eosinophils (test code = 1.2 See_Comment [A utomated message] The Eosinophils) system which ge nerated this result tra nsmitted reference range : <=4.0. The reference r kat was not used to int erpret this result as normal/abnormal . [facility] UptownNfptddqJLYOGZJIOM6855-17-89 15:29:00 Test Item Value Reference Range Interpretation Comments Lymphocytes (test code = Lymphocytes) 37.4 20.0-40.0 [facility] UptownRrlmaltPSBPURGUQS1934-42-93 15:29:00 Test Item Value Reference Range Interpretation Comments Monocytes (test code = Monocytes) 8.9 2.0-12.0 [facility] UptownAojltzvMBVWMIMHPV9437-93-14 15:29:00 Test Item Value Reference Range Interpretation Comments Segs (test code = Segs) 51.8 45.0-75.0 [facility] UptownBmhzhuwIDYTACPGHI8498-29-28 15:29:00 Test Item Value Reference Range Interpretation Comments Microcyte (test code = 1+ *ABN*(08/12/15 Microcyte) 9:29 AM) [facility] UptownRufhkyxLVCPDEZMKZ0148-26-30 15:29:00 Test Item Value Reference Range Interpretation Comments Basophils # (test code 0.1 See_Comment [Aut omated message] The = Basophils #) system which generated this result tra nsmitted reference range : <=0.2. The reference r kat was not used to int erpret this result as normal/abnormal . [facility]ownannURINE FBVO5600-55-62 15:29:00 Test Item Value Reference Range Interpretation Comments U Preg (test code = U Negative (08/12/15 9:29 Preg) AM) [facility]ownannCHEM AHGCP6800-18-72 15:29:00 Test Item Value Reference Range Interpretation Comments eGFR (test code = eGFR) 101 [facility]ownannCHEM UHAVD3693-59-29 15:29:00 Test Item Value Reference Range Interpretation Comments Creatinine Lvl (test code = Creatinine 0.81 0.50-1.40 Lvl) [facility]ownannCHEM [id number] 15:29:00 Test Item Value Reference Range Interpretation Comments CO2 (test code = CO2) 27 24-32 [facility] [id number] 15:29:00 Test Item Value Reference Range Interpretation Comments Calcium Lvl (test code = Calcium Lvl) 9.7 8.5-10.5 [facility] [id number] 15:29:00 Test Item Value Reference Range Interpretation Comments Chloride Lvl (test code = Chloride Lvl) 100 95-109 [facility]2015-12-14 15:29:00 Test Item Value Reference Range Interpretation Comments BUN (test code = BUN) 13 7-22 [facility]2015-12-14 15:29:00 Test Item Value Reference Range Interpretation Comments Glucose Lvl (test code = Glucose Lvl) 89 70-99 [facility]2015-12-14 15:29:00 Test Item Value Reference Range Interpretation Comments Potassium Lvl (test code = Potassium 4.2 3.5-5.1 Lvl) [facility]2015-12-14 15:29:00 Test Item Value Reference Range Interpretation Comments Sodium Lvl (test code = Sodium Lvl) 134 135-145 [facility]2015-12-14 15:29:00 Test Item Value Reference Range Interpretation Comments AGAP (test code = AGAP) 11.2 10.0-20.0 [facility] CenterRedvdzoSOJBBURLGU2093-25-45 15:29:00 Test Item Value Reference Range Interpretation Comments MPV (test code = MPV) 9.2 7.4-10.4 [facility] CenterQunehwrBIKLXMANFA2756-76-83 15:29:00 Test Item Value Reference Range Interpretation Comments Platelet (test code = Platelet) 307 133-450 [facility] CenterJlfvrkfQVLWAQOSGA1774-91-16 15:29:00 Test Item Value Reference Range Interpretation Comments MCH (test code = MCH) 24.3 pg 27.0-31.0 [facility] CenterQletwrpGKMFWSGVAE1962-27-82 15:29:00 Test Item Value Reference Range Interpretation Comments RDW (test code = RDW) 15.7 11.5-14.5 [facility] CenterYkysunpOMAWGWFRNY8079-48-84 15:29:00 Test Item Value Reference Range Interpretation Comments MCHC (test code = MCHC) 31.2 32.0-36.0 [facility] CenterGdkdojvYTEWUNYTHI8591-13-07 15:29:00 Test Item Value Reference Range Interpretation Comments MCV (test code = MCV) 78.0 80.0-98.0 [facility] CenterYveqfudYCVEKDTLGE2155-03-06 15:29:00 Test Item Value Reference Range Interpretation Comments WBC (test code = WBC) 8.6 3.7-10.4 [facility] CenterIehevagKIFMMIFXMM9934-76-89 15:29:00 Test Item Value Reference Range Interpretation Comments Hgb (test code = Hgb) 13.2 12.0-16.0 [facility] CenterBgbadplAYIILESHIU4470-59-14 15:29:00 Test Item Value Reference Range Interpretation Comments RBC (test code = RBC) 5.41 4.20-5.40 [facility] CenterLhbfxurWKXJGEIBLS8870-02-39 15:29:00 Test Item Value Reference Range Interpretation Comments Hct (test code = Hct) 42.1 36.0-48.0 [facility] CenterMjmjrchQNSSSHISWQ9463-89-30 15:29:00 Test Item Value Reference Range Interpretation Comments Lymphocytes # (test code = Lymphocytes 3.2 1.0-5.5 #) [facility] CenterItgclazREYDJGJUFS1199-76-27 15:29:00 Test Item Value Reference Range Interpretation Comments Eosinophils # (test code 0.1 See_Comment [A utomated message] The = Eosinophils #) system whic h generated this result tra nsmitted reference range : <=0.5. The reference r kat was not used to int erpret this result as normal/abnormal . [facility] CenterRabipnsOJSCMNBVFL7662-25-59 15:29:00 Test Item Value Reference Range Interpretation Comments Monocytes # (test code 0.8 See_Comment [Aut omated message] The = Monocytes #) system which generated this result tra nsmitted reference range : <=0.8. The reference r kat was not used to int erpret this result as normal/abnormal . [facility] CenterCxxigjkCFOPLNUJJE2442-38-48 15:29:00 Test Item Value Reference Range Interpretation Comments Basophils (test code = 0.7 See_Comment [Aut omated message] The Basophils) system which ge nerated this result tra nsmitted reference range : <=1.0. The reference r kat was not used to int erpret this result as normal/abnormal . [facility] CenterRtgllvtVRETRRDYKG5229-27-45 15:29:00 Test Item Value Reference Range Interpretation Comments Segs-Bands # (test code = Segs-Bands #) 4.4 1.5-8.1 [facility] CenterLsxfukzHRGPWTMFUL6382-70-31 15:29:00 Test Item Value Reference Range Interpretation Comments Eosinophils (test code = 1.2 See_Comment [A utomated message] The Eosinophils) system which ge nerated this result tra nsmitted reference range : <=4.0. The reference r kat was not used to int erpret this result as normal/abnormal . [facility]ownSvkesznWJJCZDKXMN4635-43-56 15:29:00 Test Item Value Reference Range Interpretation Comments Lymphocytes (test code = Lymphocytes) 37.4 20.0-40.0 [facility]ownFdkvkwtWCJHNTUMKI9382-02-42 15:29:00 Test Item Value Reference Range Interpretation Comments Monocytes (test code = Monocytes) 8.9 2.0-12.0 [facility]ownItbznguIADKVYUYWR5444-04-78 15:29:00 Test Item Value Reference Range Interpretation Comments Segs (test code = Segs) 51.8 45.0-75.0 [facility]NrolmpdKWDXHPHMUK5303-46-95 15:29:00 Test Item Value Reference Range Interpretation Comments Microcyte (test code = 1+ *ABN*(08/12/15 Microcyte) 9:29 AM) [facility]ownPzoucdmLGCANQREWC1396-48-99 15:29:00 Test Item Value Reference Range Interpretation Comments Basophils # (test code 0.1 See_Comment [Aut omated message] The = Basophils #) system which generated this result tra nsmitted reference range : <=0.2. The reference r kat was not used to int erpret this result as normal/abnormal . [facility]UR[facility] [id number] 15:29:00 Test Item Value Reference Range Interpretation Comments U Preg (test code = U Negative (08/12/15 9:29 Preg) AM) [facility] CQKQJ0683-30-53 15:29:00 Test Item Value Reference Range Interpretation Comments eGFR (test code = eGFR) 101 [facility]CHE[facility] REUSN6449-54-48 15:29:00 Test Item Value Reference Range Interpretation Comments Creatinine Lvl (test code = Creatinine 0.81 0.50-1.40 Lvl) [facility]CHE[facility] [id number] 15:29:00 Test Item Value Reference Range Interpretation Comments CO2 (test code = CO2) 27 24-32 [facility] [id number] 15:29:00 Test Item Value Reference Range Interpretation Comments Calcium Lvl (test code = Calcium Lvl) 9.7 8.5-10.5 [facility] [id number] 15:29:00 Test Item Value Reference Range Interpretation Comments Chloride Lvl (test code = Chloride Lvl) 100 95-109 [facility]2015-12-14 15:29:00 Test Item Value Reference Range Interpretation Comments BUN (test code = BUN) 13 7-22 [facility]2015-12-14 15:29:00 Test Item Value Reference Range Interpretation Comments Glucose Lvl (test code = Glucose Lvl) 89 70-99 [facility]2015-12-14 15:29:00 Test Item Value Reference Range Interpretation Comments Potassium Lvl (test code = Potassium 4.2 3.5-5.1 Lvl) [facility]2015-12-14 15:29:00 Test Item Value Reference Range Interpretation Comments Sodium Lvl (test code = Sodium Lvl) 134 135-145 [facility]2015-12-14 15:29:00 Test Item Value Reference Range Interpretation Comments AGAP (test code = AGAP) 11.2 10.0-20.0 [facility] CenterOxeumupJUJGFYIFNG9063-56-47 15:29:00 Test Item Value Reference Range Interpretation Comments MPV (test code = MPV) 9.2 7.4-10.4 [facility] CenterLxxdroqMLSZUZHFWP8011-76-88 15:29:00 Test Item Value Reference Range Interpretation Comments Platelet (test code = Platelet) 307 133-450 [facility] CenterEpedroyURNSZJILGN4568-98-14 15:29:00 Test Item Value Reference Range Interpretation Comments MCH (test code = MCH) 24.3 pg 27.0-31.0 [facility] CenterImsmwkzDDPTALEVWC8393-54-66 15:29:00 Test Item Value Reference Range Interpretation Comments RDW (test code = RDW) 15.7 11.5-14.5 [facility] CenterSmyowdgSQVSMPURIW5702-55-94 15:29:00 Test Item Value Reference Range Interpretation Comments MCHC (test code = MCHC) 31.2 32.0-36.0 [facility] CenterAksaypwAEAGJSPFIW4051-14-22 15:29:00 Test Item Value Reference Range Interpretation Comments MCV (test code = MCV) 78.0 80.0-98.0 [facility] CenterJqsopwoZAJBFRDDZU6510-09-49 15:29:00 Test Item Value Reference Range Interpretation Comments WBC (test code = WBC) 8.6 3.7-10.4 [facility] CenterEueoxvvJZKPGSPUEH1320-55-88 15:29:00 Test Item Value Reference Range Interpretation Comments Hgb (test code = Hgb) 13.2 12.0-16.0 [facility] CenterSsvkgcuUKYMZYPGOG6936-28-76 15:29:00 Test Item Value Reference Range Interpretation Comments RBC (test code = RBC) 5.41 4.20-5.40 [facility] CenterYqzdcogOHCTCGJTGT3490-62-46 15:29:00 Test Item Value Reference Range Interpretation Comments Hct (test code = Hct) 42.1 36.0-48.0 [facility] CenterCaxipnlZMDUCULINR6478-59-13 15:29:00 Test Item Value Reference Range Interpretation Comments Lymphocytes # (test code = Lymphocytes 3.2 1.0-5.5 #) [facility] CenterEtjwueoTUVQYULIKZ6087-55-13 15:29:00 Test Item Value Reference Range Interpretation Comments Eosinophils # (test code 0.1 See_Comment [A utomated message] The = Eosinophils #) system whic h generated this result tra nsmitted reference range : <=0.5. The reference r kat was not used to int erpret this result as normal/abnormal . [facility] CenterEalpcwdPQGMPJBKJS0005-48-35 15:29:00 Test Item Value Reference Range Interpretation Comments Monocytes # (test code 0.8 See_Comment [Aut omated message] The = Monocytes #) system which generated this result tra nsmitted reference range : <=0.8. The reference r kat was not used to int erpret this result as normal/abnormal . [facility] CenterKwhylkaXXHPLEIGOV6544-22-38 15:29:00 Test Item Value Reference Range Interpretation Comments Basophils (test code = 0.7 See_Comment [Aut omated message] The Basophils) system which ge nerated this result tra nsmitted reference range : <=1.0. The reference r kat was not used to int erpret this result as normal/abnormal . [facility] CenterYoftdpwXHVJSZYSKV5104-86-44 15:29:00 Test Item Value Reference Range Interpretation Comments Segs-Bands # (test code = Segs-Bands #) 4.4 1.5-8.1 [facility] CenterXbruvbdDDMZBPKXGG7491-03-00 15:29:00 Test Item Value Reference Range Interpretation Comments Eosinophils (test code = 1.2 See_Comment [A utomated message] The Eosinophils) system which ge nerated this result tra nsmitted reference range : <=4.0. The reference r kat was not used to int erpret this result as normal/abnormal . [facility]ownRgdoshfAMDNTOMZZT7410-02-02 15:29:00 Test Item Value Reference Range Interpretation Comments Lymphocytes (test code = Lymphocytes) 37.4 20.0-40.0 [facility]htcgfVFYFMZMIIO1315-39-09 15:29:00 Test Item Value Reference Range Interpretation Comments Monocytes (test code = Monocytes) 8.9 2.0-12.0 [facility]ownSqrgrxjZFUZGHALRZ1869-39-77 15:29:00 Test Item Value Reference Range Interpretation Comments Segs (test code = Segs) 51.8 45.0-75.0 [facility]ownTkxnqmwHPUHEHSHCY0987-24-05 15:29:00 Test Item Value Reference Range Interpretation Comments Microcyte (test code = 1+ *ABN*(08/12/15 Microcyte) 9:29 AM) [facility]ownAabvqsyIOKIJDWIHC1696-77-06 15:29:00 Test Item Value Reference Range Interpretation Comments Basophils # (test code 0.1 See_Comment [Aut omated message] The = Basophils #) system which generated this result tra nsmitted reference range : <=0.2. The reference r kat was not used to int erpret this result as normal/abnormal . [facility] [id number] 15:29:00 Test Item Value Reference Range Interpretation Comments U Preg (test code = U Negative (08/12/15 9:29 Preg) AM) [facility] OIDIY8530-72-14 15:29:00 Test Item Value Reference Range Interpretation Comments eGFR (test code = eGFR) 101 [facility] TKHXD1896-09-89 15:29:00 Test Item Value Reference Range Interpretation Comments Creatinine Lvl (test code = Creatinine 0.81 0.50-1.40 Lvl) [facility] LEWOA5004-03-58 15:29:00 Test Item Value Reference Range Interpretation Comments CO2 (test code = CO2) 27 24-32 [facility] [id number] 15:29:00 Test Item Value Reference Range Interpretation Comments Calcium Lvl (test code = Calcium Lvl) 9.7 8.5-10.5 [facility] [id number] 15:29:00 Test Item Value Reference Range Interpretation Comments Chloride Lvl (test code = Chloride Lvl) 100 95-109 [facility]2015-12-14 15:29:00 Test Item Value Reference Range Interpretation Comments BUN (test code = BUN) 13 7-22 [facility]2015-12-14 15:29:00 Test Item Value Reference Range Interpretation Comments Glucose Lvl (test code = Glucose Lvl) 89 70-99 [facility]2015-12-14 15:29:00 Test Item Value Reference Range Interpretation Comments Potassium Lvl (test code = Potassium 4.2 3.5-5.1 Lvl) [facility]2015-12-14 15:29:00 Test Item Value Reference Range Interpretation Comments Sodium Lvl (test code = Sodium Lvl) 134 135-145 [facility]2015-12-14 15:29:00 Test Item Value Reference Range Interpretation Comments AGAP (test code = AGAP) 11.2 10.0-20.0 [facility] CenterQvqlgxwQZVLFSTNYC2146-12-02 15:29:00 Test Item Value Reference Range Interpretation Comments MPV (test code = MPV) 9.2 7.4-10.4 [facility] CenterUfhpnlmJJATCNLOOV0587-85-88 15:29:00 Test Item Value Reference Range Interpretation Comments Platelet (test code = Platelet) 307 133-450 [facility] CenterQomaucoGJHLCMZOKY2100-44-76 15:29:00 Test Item Value Reference Range Interpretation Comments MCH (test code = MCH) 24.3 pg 27.0-31.0 [facility] CenterAlkcabySOQWXUFPSW3277-69-59 15:29:00 Test Item Value Reference Range Interpretation Comments RDW (test code = RDW) 15.7 11.5-14.5 [facility] CenterBuonlifWIIGCJNYRB0685-62-68 15:29:00 Test Item Value Reference Range Interpretation Comments MCHC (test code = MCHC) 31.2 32.0-36.0 [facility] CenterHcmzpxwUQKEVMZQWS3766-82-99 15:29:00 Test Item Value Reference Range Interpretation Comments MCV (test code = MCV) 78.0 80.0-98.0 [facility] CenterVvpjabuIQXIHUCBVD3593-28-33 15:29:00 Test Item Value Reference Range Interpretation Comments WBC (test code = WBC) 8.6 3.7-10.4 [facility] CenterWniofxsCKJYSZOXRF2417-25-65 15:29:00 Test Item Value Reference Range Interpretation Comments Hgb (test code = Hgb) 13.2 12.0-16.0 [facility] CenterYlbuslhZZKVOAUYTV1417-09-92 15:29:00 Test Item Value Reference Range Interpretation Comments RBC (test code = RBC) 5.41 4.20-5.40 [facility] CenterAqgfmhqLSTGJHPQMZ1044-14-06 15:29:00 Test Item Value Reference Range Interpretation Comments Hct (test code = Hct) 42.1 36.0-48.0 [facility] CenterCunrwrkRMEMVGIXCZ4691-33-92 15:29:00 Test Item Value Reference Range Interpretation Comments Lymphocytes # (test code = Lymphocytes 3.2 1.0-5.5 #) [facility] CenterDowxugqVBHVJSYYWQ1233-04-40 15:29:00 Test Item Value Reference Range Interpretation Comments Eosinophils # (test code 0.1 See_Comment [A utomated message] The = Eosinophils #) system whic h generated this result tra nsmitted reference range : <=0.5. The reference r kat was not used to int erpret this result as normal/abnormal . [facility] CenterLwvpbngHJMJBRUVOM5495-15-57 15:29:00 Test Item Value Reference Range Interpretation Comments Monocytes # (test code 0.8 See_Comment [Aut omated message] The = Monocytes #) system which generated this result tra nsmitted reference range : <=0.8. The reference r kat was not used to int erpret this result as normal/abnormal . [facility] CenterNgggklcBJZGPATBJZ9047-75-78 15:29:00 Test Item Value Reference Range Interpretation Comments Basophils (test code = 0.7 See_Comment [Aut omated message] The Basophils) system which ge nerated this result tra nsmitted reference range : <=1.0. The reference r kat was not used to int erpret this result as normal/abnormal . [facility] CenterCsstoudSERCTCBBXQ6037-68-82 15:29:00 Test Item Value Reference Range Interpretation Comments Segs-Bands # (test code = Segs-Bands #) 4.4 1.5-8.1 [facility] CenterBwjhvedLYTDCIAAPR2715-61-24 15:29:00 Test Item Value Reference Range Interpretation Comments Eosinophils (test code = 1.2 See_Comment [A utomated message] The Eosinophils) system which ge nerated this result tra nsmitted reference range : <=4.0. The reference r kat was not used to int erpret this result as normal/abnormal . [facility] HospitalRqursfpVKHFEMPZNG7134-44-37 15:29:00 Test Item Value Reference Range Interpretation Comments Lymphocytes (test code = Lymphocytes) 37.4 20.0-40.0 [facility]ownWkkfvfdTZLJKXLDRH9496-18-47 15:29:00 Test Item Value Reference Range Interpretation Comments Monocytes (test code = Monocytes) 8.9 2.0-12.0 [facility]GjmgibmHSZQVDIXLC1521-19-19 15:29:00 Test Item Value Reference Range Interpretation Comments Segs (test code = Segs) 51.8 45.0-75.0 [facility] InstituteTpgasioCIOWESNDTM7884-11-75 15:29:00 Test Item Value Reference Range Interpretation Comments Microcyte (test code = 1+ *ABN*(08/12/15 Microcyte) 9:29 AM) [facility] HospitalZlmjiaqEWPIBGVOPF4751-26-62 15:29:00 Test Item Value Reference Range Interpretation Comments Basophils # (test code 0.1 See_Comment [Aut omated message] The = Basophils #) system which generated this result tra nsmitted reference range : <=0.2. The reference r kat was not used to int erpret this result as normal/abnormal . [facility]UR[facility] DAGU5425-70-49 15:29:00 Test Item Value Reference Range Interpretation Comments U Preg (test code = U Negative (08/12/15 9:29 Preg) AM) [facility] QYKFS7894-40-39 15:29:00 Test Item Value Reference Range Interpretation Comments eGFR (test code = eGFR) 101 [facility]CHE[facility] CDWDY9098-06-22 15:29:00 Test Item Value Reference Range Interpretation Comments Creatinine Lvl (test code = Creatinine 0.81 0.50-1.40 Lvl) [facility] [id number] 15:29:00 Test Item Value Reference Range Interpretation Comments CO2 (test code = CO2) 27 24-32 [facility] [id number] 15:29:00 Test Item Value Reference Range Interpretation Comments Calcium Lvl (test code = Calcium Lvl) 9.7 8.5-10.5 [facility] WCJRL9967-02-67 15:29:00 Test Item Value Reference Range Interpretation Comments Chloride Lvl (test code = Chloride Lvl) 100 95-109 [facility]2015-12-14 15:29:00 Test Item Value Reference Range Interpretation Comments BUN (test code = BUN) 13 7-22 [facility]2015-12-14 15:29:00 Test Item Value Reference Range Interpretation Comments Glucose Lvl (test code = Glucose Lvl) 89 70-99 [facility]2015-12-14 15:29:00 Test Item Value Reference Range Interpretation Comments Potassium Lvl (test code = Potassium 4.2 3.5-5.1 Lvl) [facility]2015-12-14 15:29:00 Test Item Value Reference Range Interpretation Comments Sodium Lvl (test code = Sodium Lvl) 134 135-145 [facility]2015-12-14 15:29:00 Test Item Value Reference Range Interpretation Comments AGAP (test code = AGAP) 11.2 10.0-20.0 [facility] CenterThbtqphZTWJZOHGHJ3184-46-13 15:29:00 Test Item Value Reference Range Interpretation Comments MPV (test code = MPV) 9.2 7.4-10.4 [facility] CenterYmcnjoxUVHOCZAMPA5500-96-21 15:29:00 Test Item Value Reference Range Interpretation Comments Platelet (test code = Platelet) 307 133-450 [facility] CenterEnxijrzLXJWQZSRAB8951-44-09 15:29:00 Test Item Value Reference Range Interpretation Comments MCH (test code = MCH) 24.3 pg 27.0-31.0 [facility] CenterKoneqetOFRLXYYKFD7515-02-89 15:29:00 Test Item Value Reference Range Interpretation Comments RDW (test code = RDW) 15.7 11.5-14.5 [facility] CenterNmcfuwzJMOPKWNEKK6674-28-97 15:29:00 Test Item Value Reference Range Interpretation Comments MCHC (test code = MCHC) 31.2 32.0-36.0 [facility] CenterMpffmhtQXASYTPKZQ2749-65-11 15:29:00 Test Item Value Reference Range Interpretation Comments MCV (test code = MCV) 78.0 80.0-98.0 [facility] CenterTafcsdgNAYAXTDTLZ0074-87-85 15:29:00 Test Item Value Reference Range Interpretation Comments WBC (test code = WBC) 8.6 3.7-10.4 [facility] CenterRikrehnRFRKSXDBGL2917-67-23 15:29:00 Test Item Value Reference Range Interpretation Comments Hgb (test code = Hgb) 13.2 12.0-16.0 [facility] CenterMliwptgYAJLMYQRHD7363-21-42 15:29:00 Test Item Value Reference Range Interpretation Comments RBC (test code = RBC) 5.41 4.20-5.40 [facility] CenterCuhohuzUNWIXXSJWB6974-99-60 15:29:00 Test Item Value Reference Range Interpretation Comments Hct (test code = Hct) 42.1 36.0-48.0 [facility] CenterCqqmmigSRCWLONNYC6110-50-84 15:29:00 Test Item Value Reference Range Interpretation Comments Lymphocytes # (test code = Lymphocytes 3.2 1.0-5.5 #) [facility] CenterMojhttcQSNDDRQSXB6275-58-86 15:29:00 Test Item Value Reference Range Interpretation Comments Eosinophils # (test code 0.1 See_Comment [A utomated message] The = Eosinophils #) system whic h generated this result tra nsmitted reference range : <=0.5. The reference r kat was not used to int erpret this result as normal/abnormal . [facility] CenterHpdhxvyPOHDMVYZNW7499-29-96 15:29:00 Test Item Value Reference Range Interpretation Comments Monocytes # (test code 0.8 See_Comment [Aut omated message] The = Monocytes #) system which generated this result tra nsmitted reference range : <=0.8. The reference r kat was not used to int erpret this result as normal/abnormal . [facility] CenterUlaogdlNCBCFOQHAZ6319-55-23 15:29:00 Test Item Value Reference Range Interpretation Comments Basophils (test code = 0.7 See_Comment [Aut omated message] The Basophils) system which ge nerated this result tra nsmitted reference range : <=1.0. The reference r kat was not used to int erpret this result as normal/abnormal . [facility] CenterKtlqurvQPKLIUNCNM8850-57-11 15:29:00 Test Item Value Reference Range Interpretation Comments Segs-Bands # (test code = Segs-Bands #) 4.4 1.5-8.1 [facility] [id number] 15:29:00 Test Item Value Reference Range Interpretation Comments Eosinophils (test code = 1.2 See_Comment [A utomated message] The Eosinophils) system which ge nerated this result tra nsmitted reference range : <=4.0. The reference r kat was not used to int erpret this result as normal/abnormal . [facility]DqmlenkSBGFTYMXBY2637-24-74 15:29:00 Test Item Value Reference Range Interpretation Comments Lymphocytes (test code = Lymphocytes) 37.4 20.0-40.0 [facility] HospitalOfgceisROXIWSJFRG1783-07-27 15:29:00 Test Item Value Reference Range Interpretation Comments Monocytes (test code = Monocytes) 8.9 2.0-12.0 [facility]FtfzoqrFSPHNRYIAX8073-81-70 15:29:00 Test Item Value Reference Range Interpretation Comments Segs (test code = Segs) 51.8 45.0-75.0 [facility] InstituteDxehyvfKCAIKCZQWM3578-34-84 15:29:00 Test Item Value Reference Range Interpretation Comments Microcyte (test code = 1+ *ABN*(08/12/15 Microcyte) 9:29 AM) [facility] InstituteOeejtqwNTXJHEQFCO3842-65-39 15:29:00 Test Item Value Reference Range Interpretation Comments Basophils # (test code 0.1 See_Comment [Aut omated message] The = Basophils #) system which generated this result tra nsmitted reference range : <=0.2. The reference r akt was not used to int erpret this result as normal/abnormal . [facility] [id number] 15:29:00 Test Item Value Reference Range Interpretation Comments U Preg (test code = U Negative (08/12/15 9:29 Preg) AM) [facility]CHE[facility] [id number] 15:29:00 Test Item Value Reference Range Interpretation Comments eGFR (test code = eGFR) 101 [facility] [id number] 15:29:00 Test Item Value Reference Range Interpretation Comments Creatinine Lvl (test code = Creatinine 0.81 0.50-1.40 Lvl) [facility] [id number] 15:29:00 Test Item Value Reference Range Interpretation Comments CO2 (test code = CO2) 27 24-32 [facility]CHE[facility] [id number] 15:29:00 Test Item Value Reference Range Interpretation Comments Calcium Lvl (test code = Calcium Lvl) 9.7 8.5-10.5 [facility] OSCFR8213-95-71 15:29:00 Test Item Value Reference Range Interpretation Comments Chloride Lvl (test code = Chloride Lvl) 100 95-109 [facility]2015-12-14 15:29:00 Test Item Value Reference Range Interpretation Comments BUN (test code = BUN) 13 7-22 [facility]2015-12-14 15:29:00 Test Item Value Reference Range Interpretation Comments Glucose Lvl (test code = Glucose Lvl) 89 70-99 [facility]2015-12-14 15:29:00 Test Item Value Reference Range Interpretation Comments Potassium Lvl (test code = Potassium 4.2 3.5-5.1 Lvl) [facility]2015-12-14 15:29:00 Test Item Value Reference Range Interpretation Comments Sodium Lvl (test code = Sodium Lvl) 134 135-145 [facility]2015-12-14 15:29:00 Test Item Value Reference Range Interpretation Comments AGAP (test code = AGAP) 11.2 10.0-20.0 [facility] CenterVciwzloPQEDBYXSTQ5156-93-50 15:29:00 Test Item Value Reference Range Interpretation Comments MPV (test code = MPV) 9.2 7.4-10.4 [facility] CenterXtfnichYRWIUXYMHW6300-74-59 15:29:00 Test Item Value Reference Range Interpretation Comments Platelet (test code = Platelet) 307 133-450 [facility] CenterHnkznioKHLXMDQNWF1631-33-80 15:29:00 Test Item Value Reference Range Interpretation Comments MCH (test code = MCH) 24.3 pg 27.0-31.0 [facility] CenterHjcumwlFJZAQSDAPS7522-20-82 15:29:00 Test Item Value Reference Range Interpretation Comments RDW (test code = RDW) 15.7 11.5-14.5 [facility] CenterNikfqexLTVCPKTGGO8009-22-68 15:29:00 Test Item Value Reference Range Interpretation Comments MCHC (test code = MCHC) 31.2 32.0-36.0 [facility] CenterCqsznxiPHYTYZFHQD5662-54-64 15:29:00 Test Item Value Reference Range Interpretation Comments MCV (test code = MCV) 78.0 80.0-98.0 [place] 845915-12-14 15:29:00 Test Item Value Reference Range Interpretation Comments WBC (test code = WBC) 8.6 3.7-10.4 [facility] CenterIjvhrwcZCRRHVXOSR9876-41-49 15:29:00 Test Item Value Reference Range Interpretation Comments Hgb (test code = Hgb) 13.2 12.0-16.0 [facility] CenterCywakviOIXZXTVYLF2872-24-54 15:29:00 Test Item Value Reference Range Interpretation Comments RBC (test code = RBC) 5.41 4.20-5.40 [facility] CenterJrzbgxuYJRCTAWHYH2577-04-29 15:29:00 Test Item Value Reference Range Interpretation Comments Hct (test code = Hct) 42.1 36.0-48.0 [facility] CenterYtudllkLEYILHUNGQ1041-60-20 15:29:00 Test Item Value Reference Range Interpretation Comments Lymphocytes # (test code = Lymphocytes 3.2 1.0-5.5 #) [facility] CenterNejhptbPHJLXWBHEL8240-69-35 15:29:00 Test Item Value Reference Range Interpretation Comments Eosinophils # (test code 0.1 See_Comment [A utomated message] The = Eosinophils #) system whic h generated this result tra nsmitted reference range : <=0.5. The reference r kat was not used to int erpret this result as normal/abnormal . [facility] CenterMxhqsbeAKLQPOFKGU7957-77-14 15:29:00 Test Item Value Reference Range Interpretation Comments Monocytes # (test code 0.8 See_Comment [Aut omated message] The = Monocytes #) system which generated this result tra nsmitted reference range : <=0.8. The reference r kat was not used to int erpret this result as normal/abnormal . [facility] CenterXfwwvutVKIEGQROGS9982-10-65 15:29:00 Test Item Value Reference Range Interpretation Comments Basophils (test code = 0.7 See_Comment [Aut omated message] The Basophils) system which ge nerated this result tra nsmitted reference range : <=1.0. The reference r kat was not used to int erpret this result as normal/abnormal . [facility] CenterKbjxkodTVVXKRHOQD2594-80-92 15:29:00 Test Item Value Reference Range Interpretation Comments Segs-Bands # (test code = Segs-Bands #) 4.4 1.5-8.1 [facility] CenterHdbjlrdILMOSFATTC8801-31-66 15:29:00 Test Item Value Reference Range Interpretation Comments Eosinophils (test code = 1.2 See_Comment [A utomated message] The Eosinophils) system which ge nerated this result tra nsmitted reference range : <=4.0. The reference r kat was not used to int erpret this result as normal/abnormal . [facility] HospitalRgqvaddGLXEXHKRBO8733-43-38 15:29:00 Test Item Value Reference Range Interpretation Comments Lymphocytes (test code = Lymphocytes) 37.4 20.0-40.0 [facility]ownMnbdwyaQFCEGTCVGN7354-52-47 15:29:00 Test Item Value Reference Range Interpretation Comments Monocytes (test code = Monocytes) 8.9 2.0-12.0 [facility]ptownSbpqglaYIKNKMDARO2639-62-63 15:29:00 Test Item Value Reference Range Interpretation Comments Segs (test code = Segs) 51.8 45.0-75.0 [facility] UptownOhguarsLHNJJOCHNS3367-28-91 15:29:00 Test Item Value Reference Range Interpretation Comments Microcyte (test code = 1+ *ABN*(08/12/15 Microcyte) 9:29 AM) [facility]ownBsbcnxtJLLRGVSISE5119-76-55 15:29:00 Test Item Value Reference Range Interpretation Comments Basophils # (test code 0.1 See_Comment [Aut omated message] The = Basophils #) system which generated this result tra nsmitted reference range : <=0.2. The reference r kat was not used to int erpret this result as normal/abnormal . [facility]UR[facility] [id number] 15:29:00 Test Item Value Reference Range Interpretation Comments U Preg (test code = U Negative (08/12/15 9:29 Preg) AM) [facility] [id number] 15:29:00 Test Item Value Reference Range Interpretation Comments eGFR (test code = eGFR) 101 [facility] [id number] 15:29:00 Test Item Value Reference Range Interpretation Comments Creatinine Lvl (test code = Creatinine 0.81 0.50-1.40 Lvl) [facility] [id number] 15:29:00 Test Item Value Reference Range Interpretation Comments CO2 (test code = CO2) 27 24-32 [facility] [id number] 15:29:00 Test Item Value Reference Range Interpretation Comments Calcium Lvl (test code = Calcium Lvl) 9.7 8.5-10.5 [facility] [id number] 15:29:00 Test Item Value Reference Range Interpretation Comments Chloride Lvl (test code = Chloride Lvl) 100 95-109 [facility]2015-12-14 15:29:00 Test Item Value Reference Range Interpretation Comments BUN (test code = BUN) 13 7-22 [facility]2015-12-14 15:29:00 Test Item Value Reference Range Interpretation Comments Glucose Lvl (test code = Glucose Lvl) 89 70-99 [facility]2015-12-14 15:29:00 Test Item Value Reference Range Interpretation Comments Potassium Lvl (test code = Potassium 4.2 3.5-5.1 Lvl) [facility]2015-12-14 15:29:00 Test Item Value Reference Range Interpretation Comments Sodium Lvl (test code = Sodium Lvl) 134 135-145 [facility]2015-12-14 15:29:00 Test Item Value Reference Range Interpretation Comments AGAP (test code = AGAP) 11.2 10.0-20.0 [facility] CenterSrkcduvQNSXGDTCXF2925-36-12 15:29:00 Test Item Value Reference Range Interpretation Comments MPV (test code = MPV) 9.2 7.4-10.4 [facility] CenterVbjbuttEOROSXMXCC2614-18-26 15:29:00 Test Item Value Reference Range Interpretation Comments Platelet (test code = Platelet) 307 133-450 [facility] CenterFzzlibfMABUIHXLVC1697-87-51 15:29:00 Test Item Value Reference Range Interpretation Comments MCH (test code = MCH) 24.3 pg 27.0-31.0 [facility] CenterWmcifrzEDKHRYFVPW0341-05-69 15:29:00 Test Item Value Reference Range Interpretation Comments RDW (test code = RDW) 15.7 11.5-14.5 [facility] CenterTebdpthATTQFBDIAG9362-23-81 15:29:00 Test Item Value Reference Range Interpretation Comments MCHC (test code = MCHC) 31.2 32.0-36.0 [facility] CenterZeqpuwtBUVQCNLGLD5246-38-57 15:29:00 Test Item Value Reference Range Interpretation Comments MCV (test code = MCV) 78.0 80.0-98.0 [facility] CenterEbnvvvbSDXJGMVHZA3381-64-66 15:29:00 Test Item Value Reference Range Interpretation Comments WBC (test code = WBC) 8.6 3.7-10.4 [facility] CenterGxpwbksILZWJBRMVG9986-35-27 15:29:00 Test Item Value Reference Range Interpretation Comments Hgb (test code = Hgb) 13.2 12.0-16.0 [facility] CenterKvkugrfFICACATZKW2675-19-59 15:29:00 Test Item Value Reference Range Interpretation Comments RBC (test code = RBC) 5.41 4.20-5.40 [facility] CenterWaayyucOPADOZWDWE4145-53-37 15:29:00 Test Item Value Reference Range Interpretation Comments Hct (test code = Hct) 42.1 36.0-48.0 [facility] CenterRadaeyuKIBZANRALP2723-96-31 15:29:00 Test Item Value Reference Range Interpretation Comments Lymphocytes # (test code = Lymphocytes 3.2 1.0-5.5 #) [facility] CenterZmivbhnGEOAQKVMAM1530-86-47 15:29:00 Test Item Value Reference Range Interpretation Comments Eosinophils # (test code 0.1 See_Comment [A utomated message] The = Eosinophils #) system whic h generated this result tra nsmitted reference range : <=0.5. The reference r kat was not used to int erpret this result as normal/abnormal . [facility] CenterEhfsgsnISHMBCDYAH8257-60-25 15:29:00 Test Item Value Reference Range Interpretation Comments Monocytes # (test code 0.8 See_Comment [Aut omated message] The = Monocytes #) system which generated this result tra nsmitted reference range : <=0.8. The reference r kat was not used to int erpret this result as normal/abnormal . [facility] CenterKhazcdjPGUZLXPLGO7022-92-50 15:29:00 Test Item Value Reference Range Interpretation Comments Basophils (test code = 0.7 See_Comment [Aut omated message] The Basophils) system which ge nerated this result tra nsmitted reference range : <=1.0. The reference r kat was not used to int erpret this result as normal/abnormal . [facility] CenterXcxdvsuHJJEPHABEG5542-99-91 15:29:00 Test Item Value Reference Range Interpretation Comments Segs-Bands # (test code = Segs-Bands #) 4.4 1.5-8.1 [facility] CenterVdisydjQMZLCZUULO9889-35-80 15:29:00 Test Item Value Reference Range Interpretation Comments Eosinophils (test code = 1.2 See_Comment [A utomated message] The Eosinophils) system which ge nerated this result tra nsmitted reference range : <=4.0. The reference r kat was not used to int erpret this result as normal/abnormal . [facility]ownQwudiyyQJARLGXDSI6680-45-20 15:29:00 Test Item Value Reference Range Interpretation Comments Lymphocytes (test code = Lymphocytes) 37.4 20.0-40.0 [facility] UptownUwzhbatSTHYGPGMYP3524-20-84 15:29:00 Test Item Value Reference Range Interpretation Comments Monocytes (test code = Monocytes) 8.9 2.0-12.0 [facility]ownKzmcwbvXOAOQAPYQJ9858-07-88 15:29:00 Test Item Value Reference Range Interpretation Comments Segs (test code = Segs) 51.8 45.0-75.0 [facility] UptownVkwkxfeUBUSIXXTMB5375-33-21 15:29:00 Test Item Value Reference Range Interpretation Comments Microcyte (test code = 1+ *ABN*(08/12/15 Microcyte) 9:29 AM) [facility]ownNzmfxohJYXPRSXMSQ7214-32-24 15:29:00 Test Item Value Reference Range Interpretation Comments Basophils # (test code 0.1 See_Comment [Aut omated message] The = Basophils #) system which generated this result tra nsmitted reference range : <=0.2. The reference r kat was not used to int erpret this result as normal/abnormal . [facility] [id number] 15:29:00 Test Item Value Reference Range Interpretation Comments U Preg (test code = U Negative (08/12/15 9:29 Preg) AM) [facility] TJMBS5198-02-27 15:29:00 Test Item Value Reference Range Interpretation Comments eGFR (test code = eGFR) 101 [facility] ONMWB4797-77-16 15:29:00 Test Item Value Reference Range Interpretation Comments Creatinine Lvl (test code = Creatinine 0.81 0.50-1.40 Lvl) [facility] PFYFP8663-95-01 15:29:00 Test Item Value Reference Range Interpretation Comments CO2 (test code = CO2) 27 24-32 [facility] [id number] 15:29:00 Test Item Value Reference Range Interpretation Comments Calcium Lvl (test code = Calcium Lvl) 9.7 8.5-10.5 [facility] BOUJS2618-66-25 15:29:00 Test Item Value Reference Range Interpretation Comments Chloride Lvl (test code = Chloride Lvl) 100 95-109 [facility]2015-12-14 15:29:00 Test Item Value Reference Range Interpretation Comments BUN (test code = BUN) 13 7-22 [facility]2015-12-14 15:29:00 Test Item Value Reference Range Interpretation Comments Glucose Lvl (test code = Glucose Lvl) 89 70-99 [facility]2015-12-14 15:29:00 Test Item Value Reference Range Interpretation Comments Potassium Lvl (test code = Potassium 4.2 3.5-5.1 Lvl) [facility]2015-12-14 15:29:00 Test Item Value Reference Range Interpretation Comments Sodium Lvl (test code = Sodium Lvl) 134 135-145 [facility]2015-12-14 15:29:00 Test Item Value Reference Range Interpretation Comments AGAP (test code = AGAP) 11.2 10.0-20.0 [facility] CenterYsochodBIGZTDEMYF7933-88-77 15:29:00 Test Item Value Reference Range Interpretation Comments MPV (test code = MPV) 9.2 7.4-10.4 [facility] CenterChkknrkRPEUHMEVAU9813-02-29 15:29:00 Test Item Value Reference Range Interpretation Comments Platelet (test code = Platelet) 307 133-450 [facility] CenterUfccnqwAXMWCQGZOJ3608-32-11 15:29:00 Test Item Value Reference Range Interpretation Comments MCH (test code = MCH) 24.3 pg 27.0-31.0 [facility] CenterPlcxapuYAKNMURJDY1436-60-15 15:29:00 Test Item Value Reference Range Interpretation Comments RDW (test code = RDW) 15.7 11.5-14.5 [facility] CenterUiabbbzJWWTTYUQCV0925-24-80 15:29:00 Test Item Value Reference Range Interpretation Comments MCHC (test code = MCHC) 31.2 32.0-36.0 [facility] CenterAdqolfuJPHSISIWYS1791-66-36 15:29:00 Test Item Value Reference Range Interpretation Comments MCV (test code = MCV) 78.0 80.0-98.0 [facility] CenterTkoyzhdRGMNWFVAXQ0172-54-60 15:29:00 Test Item Value Reference Range Interpretation Comments WBC (test code = WBC) 8.6 3.7-10.4 [facility] CenterJhojuojVOIBWPGJFQ5811-49-57 15:29:00 Test Item Value Reference Range Interpretation Comments Hgb (test code = Hgb) 13.2 12.0-16.0 [facility] CenterRuonwqaTPXBETKYVS1313-39-05 15:29:00 Test Item Value Reference Range Interpretation Comments RBC (test code = RBC) 5.41 4.20-5.40 [facility] CenterStsgxzzISSEABSNJH9003-91-67 15:29:00 Test Item Value Reference Range Interpretation Comments Hct (test code = Hct) 42.1 36.0-48.0 [facility] CenterRgtapvySBRXWQTDXX7907-04-51 15:29:00 Test Item Value Reference Range Interpretation Comments Lymphocytes # (test code = Lymphocytes 3.2 1.0-5.5 #) [facility] CenterGhaexobBUSLPRHQOO6298-45-50 15:29:00 Test Item Value Reference Range Interpretation Comments Eosinophils # (test code 0.1 See_Comment [A utomated message] The = Eosinophils #) system whic h generated this result tra nsmitted reference range : <=0.5. The reference r kat was not used to int erpret this result as normal/abnormal . [facility] CenterZhotqhrTSRVQZQXYZ1245-54-51 15:29:00 Test Item Value Reference Range Interpretation Comments Monocytes # (test code 0.8 See_Comment [Aut omated message] The = Monocytes #) system which generated this result tra nsmitted reference range : <=0.8. The reference r kat was not used to int erpret this result as normal/abnormal . [facility] CenterYzztedjZXQUWXBFIO2772-94-41 15:29:00 Test Item Value Reference Range Interpretation Comments Basophils (test code = 0.7 See_Comment [Aut omated message] The Basophils) system which ge nerated this result tra nsmitted reference range : <=1.0. The reference r kat was not used to int erpret this result as normal/abnormal . [facility] CenterDlzdocgMNLELIWJUX3361-73-04 15:29:00 Test Item Value Reference Range Interpretation Comments Segs-Bands # (test code = Segs-Bands #) 4.4 1.5-8.1 [facility] CenterMqvqxypPITTHMSDNE8798-31-35 15:29:00 Test Item Value Reference Range Interpretation Comments Eosinophils (test code = 1.2 See_Comment [A utomated message] The Eosinophils) system which ge nerated this result tra nsmitted reference range : <=4.0. The reference r kat was not used to int erpret this result as normal/abnormal . [facility] HospitalOtxbjwmIKQYDPWGVF9521-35-79 15:29:00 Test Item Value Reference Range Interpretation Comments Lymphocytes (test code = Lymphocytes) 37.4 20.0-40.0 [facility]ownVqyilfbTTLUKNRGTC9382-62-27 15:29:00 Test Item Value Reference Range Interpretation Comments Monocytes (test code = Monocytes) 8.9 2.0-12.0 [facility]ptownAeeisgqMZSBDSGRPV3488-22-04 15:29:00 Test Item Value Reference Range Interpretation Comments Segs (test code = Segs) 51.8 45.0-75.0 [facility]HwjmgdfEDGVQTZDJQ4899-13-13 15:29:00 Test Item Value Reference Range Interpretation Comments Microcyte (test code = 1+ *ABN*(08/12/15 Microcyte) 9:29 AM) [facility] HospitalNutqsknQSNSPTIXMF6970-91-65 15:29:00 Test Item Value Reference Range Interpretation Comments Basophils # (test code 0.1 See_Comment [Aut omated message] The = Basophils #) system which generated this result tra nsmitted reference range : <=0.2. The reference r kat was not used to int erpret this result as normal/abnormal . [facility] [id number] 15:29:00 Test Item Value Reference Range Interpretation Comments U Preg (test code = U Negative (08/12/15 9:29 Preg) AM) [facility] [id number] 15:29:00 Test Item Value Reference Range Interpretation Comments eGFR (test code = eGFR) 101 [facility]CHE[facility] HXHAR4035-81-75 15:29:00 Test Item Value Reference Range Interpretation Comments Creatinine Lvl (test code = Creatinine 0.81 0.50-1.40 Lvl) [facility] [id number] 15:29:00 Test Item Value Reference Range Interpretation Comments CO2 (test code = CO2) 27 24-32 [facility] IBTFI9806-08-59 15:29:00 Test Item Value Reference Range Interpretation Comments Calcium Lvl (test code = Calcium Lvl) 9.7 8.5-10.5 [facility] [id number] 15:29:00 Test Item Value Reference Range Interpretation Comments Chloride Lvl (test code = Chloride Lvl) 100 95-109 [facility]2015-12-14 15:29:00 Test Item Value Reference Range Interpretation Comments BUN (test code = BUN) 13 7-22 [facility]2015-12-14 15:29:00 Test Item Value Reference Range Interpretation Comments Glucose Lvl (test code = Glucose Lvl) 89 70-99 [facility]2015-12-14 15:29:00 Test Item Value Reference Range Interpretation Comments Potassium Lvl (test code = Potassium 4.2 3.5-5.1 Lvl) [facility]2015-12-14 15:29:00 Test Item Value Reference Range Interpretation Comments Sodium Lvl (test code = Sodium Lvl) 134 135-145 [facility]2015-12-14 15:29:00 Test Item Value Reference Range Interpretation Comments AGAP (test code = AGAP) 11.2 10.0-20.0 [facility] CenterZuuvuqlPYAQTLPYOD9970-17-70 15:29:00 Test Item Value Reference Range Interpretation Comments MPV (test code = MPV) 9.2 7.4-10.4 [facility] CenterJyudfwiZHWJCKLHWK3722-20-69 15:29:00 Test Item Value Reference Range Interpretation Comments Platelet (test code = Platelet) 307 133-450 [facility] CenterSykqzjcRIXHBNWRKD4898-63-15 15:29:00 Test Item Value Reference Range Interpretation Comments MCH (test code = MCH) 24.3 pg 27.0-31.0 [facility] CenterHardsebCZTNZIKHNO1430-83-87 15:29:00 Test Item Value Reference Range Interpretation Comments RDW (test code = RDW) 15.7 11.5-14.5 [facility] CenterUsagmokNMPHHKGCLS8452-21-06 15:29:00 Test Item Value Reference Range Interpretation Comments MCHC (test code = MCHC) 31.2 32.0-36.0 [facility] CenterHogsskjWFKRFKWLSL1301-61-80 15:29:00 Test Item Value Reference Range Interpretation Comments MCV (test code = MCV) 78.0 80.0-98.0 [facility] CenterCdqhzewOBZWGXMDDR3638-56-28 15:29:00 Test Item Value Reference Range Interpretation Comments WBC (test code = WBC) 8.6 3.7-10.4 [place] 845915-12-14 15:29:00 Test Item Value Reference Range Interpretation Comments Hgb (test code = Hgb) 13.2 12.0-16.0 [facility] CenterFjhecbkGMAUWEYYKL1462-80-64 15:29:00 Test Item Value Reference Range Interpretation Comments RBC (test code = RBC) 5.41 4.20-5.40 [facility] CenterYgclxaxXCLLVJKRKG9147-23-19 15:29:00 Test Item Value Reference Range Interpretation Comments Hct (test code = Hct) 42.1 36.0-48.0 [facility] CenterMoadebjNPQXIMFEIX6715-89-13 15:29:00 Test Item Value Reference Range Interpretation Comments Lymphocytes # (test code = Lymphocytes 3.2 1.0-5.5 #) [facility] CenterSdtqeulULLQGUAJZA0901-95-02 15:29:00 Test Item Value Reference Range Interpretation Comments Eosinophils # (test code 0.1 See_Comment [A utomated message] The = Eosinophils #) system whic h generated this result tra nsmitted reference range : <=0.5. The reference r kat was not used to int erpret this result as normal/abnormal . [facility] CenterZechhhiEMVSENPKWT5745-35-71 15:29:00 Test Item Value Reference Range Interpretation Comments Monocytes # (test code 0.8 See_Comment [Aut omated message] The = Monocytes #) system which generated this result tra nsmitted reference range : <=0.8. The reference r kat was not used to int erpret this result as normal/abnormal . [facility] CenterWawhrjnKGGZSCQKJV5624-03-93 15:29:00 Test Item Value Reference Range Interpretation Comments Basophils (test code = 0.7 See_Comment [Aut omated message] The Basophils) system which ge nerated this result tra nsmitted reference range : <=1.0. The reference r kat was not used to int erpret this result as normal/abnormal . [facility] CenterRjrvfrrEDSVRLIDSM4840-61-81 15:29:00 Test Item Value Reference Range Interpretation Comments Segs-Bands # (test code = Segs-Bands #) 4.4 1.5-8.1 [facility] CenterOggmpvkCYQQCHRJPT6120-33-62 15:29:00 Test Item Value Reference Range Interpretation Comments Eosinophils (test code = 1.2 See_Comment [A utomated message] The Eosinophils) system which ge nerated this result tra nsmitted reference range : <=4.0. The reference r kat was not used to int erpret this result as normal/abnormal . [facility]ownEfvngqkEDDXBCPLQG6042-76-76 15:29:00 Test Item Value Reference Range Interpretation Comments Lymphocytes (test code = Lymphocytes) 37.4 20.0-40.0 [facility] UptownCtretksNXXTINLYRW4891-16-11 15:29:00 Test Item Value Reference Range Interpretation Comments Monocytes (test code = Monocytes) 8.9 2.0-12.0 [facility] UptownXfodevwRRVPEYSUOU1877-00-08 15:29:00 Test Item Value Reference Range Interpretation Comments Segs (test code = Segs) 51.8 45.0-75.0 [facility] UptownEglcjywWZELMYIUNE8102-55-52 15:29:00 Test Item Value Reference Range Interpretation Comments Microcyte (test code = 1+ *ABN*(08/12/15 Microcyte) 9:29 AM) [facility]BvegtyoCYVLYKCZEM4538-37-77 15:29:00 Test Item Value Reference Range Interpretation Comments Basophils # (test code 0.1 See_Comment [Aut omated message] The = Basophils #) system which generated this result tra nsmitted reference range : <=0.2. The reference r kat was not used to int erpret this result as normal/abnormal . [facility]UR[facility] [id number] 15:29:00 Test Item Value Reference Range Interpretation Comments U Preg (test code = U Negative (08/12/15 9:29 Preg) AM) [facility]own[facility]CHEM [id number] 15:29:00 Test Item Value Reference Range Interpretation Comments eGFR (test code = eGFR) 101 [facility]CHE[facility] [id number] 15:29:00 Test Item Value Reference Range Interpretation Comments Creatinine Lvl (test code = Creatinine 0.81 0.50-1.40 Lvl) [facility]CHE[facility] [id number] 15:29:00 Test Item Value Reference Range Interpretation Comments CO2 (test code = CO2) 27 24-32 [facility]CHE[facility] [id number] 15:29:00 Test Item Value Reference Range Interpretation Comments Calcium Lvl (test code = Calcium Lvl) 9.7 8.5-10.5 [facility]CHE[facility] [id number] 15:29:00 Test Item Value Reference Range Interpretation Comments Chloride Lvl (test code = Chloride Lvl) 100 95-109 [facility]2015-12-14 15:29:00 Test Item Value Reference Range Interpretation Comments BUN (test code = BUN) 13 7-22 [facility]2015-12-14 15:29:00 Test Item Value Reference Range Interpretation Comments Glucose Lvl (test code = Glucose Lvl) 89 70-99 [facility]2015-12-14 15:29:00 Test Item Value Reference Range Interpretation Comments Potassium Lvl (test code = Potassium 4.2 3.5-5.1 Lvl) [facility]2015-12-14 15:29:00 Test Item Value Reference Range Interpretation Comments Sodium Lvl (test code = Sodium Lvl) 134 135-145 [facility]2015-12-14 15:29:00 Test Item Value Reference Range Interpretation Comments AGAP (test code = AGAP) 11.2 10.0-20.0 [facility] CenterRsmudbsCHLRWIVGJX8497-55-07 15:29:00 Test Item Value Reference Range Interpretation Comments MPV (test code = MPV) 9.2 7.4-10.4 [facility] CenterGtnnjevSVLAVEFVBE8951-50-04 15:29:00 Test Item Value Reference Range Interpretation Comments Platelet (test code = Platelet) 307 133-450 [facility] CenterYlkjbatMARKJFLCQA5309-47-36 15:29:00 Test Item Value Reference Range Interpretation Comments MCH (test code = MCH) 24.3 pg 27.0-31.0 [facility] CenterSigaoqeDGLZSDXGZC5319-80-11 15:29:00 Test Item Value Reference Range Interpretation Comments RDW (test code = RDW) 15.7 11.5-14.5 [facility] CenterHciuowrZXGZGRNUCD6113-72-07 15:29:00 Test Item Value Reference Range Interpretation Comments MCHC (test code = MCHC) 31.2 32.0-36.0 [facility] CenterOgakxxbUVUPNIJHHC0958-95-05 15:29:00 Test Item Value Reference Range Interpretation Comments MCV (test code = MCV) 78.0 80.0-98.0 [facility] CenterSvgaoewDURALENBNB3337-59-03 15:29:00 Test Item Value Reference Range Interpretation Comments WBC (test code = WBC) 8.6 3.7-10.4 [place] 845915-12-14 15:29:00 Test Item Value Reference Range Interpretation Comments Hgb (test code = Hgb) 13.2 12.0-16.0 [facility] CenterVeaqtpwRJCTKFMLBY2705-95-80 15:29:00 Test Item Value Reference Range Interpretation Comments RBC (test code = RBC) 5.41 4.20-5.40 [facility] CenterRrijbcpZDHEDEVWAP2057-08-87 15:29:00 Test Item Value Reference Range Interpretation Comments Hct (test code = Hct) 42.1 36.0-48.0 [facility] CenterYezkiqfYFMCVZQVUY3584-47-92 15:29:00 Test Item Value Reference Range Interpretation Comments Lymphocytes # (test code = Lymphocytes 3.2 1.0-5.5 #) [facility] CenterXsihvolRUHNGFWCRR7782-94-99 15:29:00 Test Item Value Reference Range Interpretation Comments Eosinophils # (test code 0.1 See_Comment [A utomated message] The = Eosinophils #) system whic h generated this result tra nsmitted reference range : <=0.5. The reference r kat was not used to int erpret this result as normal/abnormal . [facility] CenterPqzzornRCKVDAGKBY0170-17-59 15:29:00 Test Item Value Reference Range Interpretation Comments Monocytes # (test code 0.8 See_Comment [Aut omated message] The = Monocytes #) system which generated this result tra nsmitted reference range : <=0.8. The reference r kat was not used to int erpret this result as normal/abnormal . [facility] CenterOjzkxajKJNBKRLAAD5424-82-55 15:29:00 Test Item Value Reference Range Interpretation Comments Basophils (test code = 0.7 See_Comment [Aut omated message] The Basophils) system which ge nerated this result tra nsmitted reference range : <=1.0. The reference r kat was not used to int erpret this result as normal/abnormal . [facility] CenterFamyvdcAHOFGGAKOU4245-54-03 15:29:00 Test Item Value Reference Range Interpretation Comments Segs-Bands # (test code = Segs-Bands #) 4.4 1.5-8.1 [facility] CenterPnkkyjgGOQVNWYRAZ2428-95-93 15:29:00 Test Item Value Reference Range Interpretation Comments Eosinophils (test code = 1.2 See_Comment [A utomated message] The Eosinophils) system which ge nerated this result tra nsmitted reference range : <=4.0. The reference r kat was not used to int erpret this result as normal/abnormal . [facility] UptownSoskpmtOMWXJUMICL5841-50-44 15:29:00 Test Item Value Reference Range Interpretation Comments Lymphocytes (test code = Lymphocytes) 37.4 20.0-40.0 [facility] UptownJahyetfDHWXPETBQZ9831-47-24 15:29:00 Test Item Value Reference Range Interpretation Comments Monocytes (test code = Monocytes) 8.9 2.0-12.0 [facility] UptownWdrobirQHXOXIKIYM6904-47-12 15:29:00 Test Item Value Reference Range Interpretation Comments Segs (test code = Segs) 51.8 45.0-75.0 [facility] UptownJayctsyPWYZJLSXLE3839-54-65 15:29:00 Test Item Value Reference Range Interpretation Comments Microcyte (test code = 1+ *ABN*(08/12/15 Microcyte) 9:29 AM) [facility] HospitalXtecxmsSIIKJPLLKQ0340-68-67 15:29:00 Test Item Value Reference Range Interpretation Comments Basophils # (test code 0.1 See_Comment [Aut omated message] The = Basophils #) system which generated this result tra nsmitted reference range : <=0.2. The reference r kat was not used to int erpret this result as normal/abnormal . [facility]UR[facility] [id number] 15:29:00 Test Item Value Reference Range Interpretation Comments U Preg (test code = U Negative (08/12/15 9:29 Preg) AM) [facility]CHEM [id number] 15:29:00 Test Item Value Reference Range Interpretation Comments eGFR (test code = eGFR) 101 [facility]ownannCHEM PNAKG1305-94-70 15:29:00 Test Item Value Reference Range Interpretation Comments Creatinine Lvl (test code = Creatinine 0.81 0.50-1.40 Lvl) [facility]CHE[facility] [id number] 15:29:00 Test Item Value Reference Range Interpretation Comments CO2 (test code = CO2) 27 24-32 [facility]ownannCHEM [id number] 15:29:00 Test Item Value Reference Range Interpretation Comments Calcium Lvl (test code = Calcium Lvl) 9.7 8.5-10.5 [facility] SSMWV0470-66-04 15:29:00 Test Item Value Reference Range Interpretation Comments Chloride Lvl (test code = Chloride Lvl) 100 95-109 [facility]2015-12-14 15:29:00 Test Item Value Reference Range Interpretation Comments BUN (test code = BUN) 13 7-22 [facility]2015-12-14 15:29:00 Test Item Value Reference Range Interpretation Comments Glucose Lvl (test code = Glucose Lvl) 89 70-99 [facility]2015-12-14 15:29:00 Test Item Value Reference Range Interpretation Comments Potassium Lvl (test code = Potassium 4.2 3.5-5.1 Lvl) [facility]2015-12-14 15:29:00 Test Item Value Reference Range Interpretation Comments Sodium Lvl (test code = Sodium Lvl) 134 135-145 [facility]2015-12-14 15:29:00 Test Item Value Reference Range Interpretation Comments AGAP (test code = AGAP) 11.2 10.0-20.0 [facility] CenterMgwuiewUXGJEUYDQP2532-11-64 15:29:00 Test Item Value Reference Range Interpretation Comments MPV (test code = MPV) 9.2 7.4-10.4 [facility] CenterRncarfdVBFTNPEMNC4184-44-35 15:29:00 Test Item Value Reference Range Interpretation Comments Platelet (test code = Platelet) 307 133-450 [facility] CenterBwofgwdONRZKZKCBY6045-96-16 15:29:00 Test Item Value Reference Range Interpretation Comments MCH (test code = MCH) 24.3 pg 27.0-31.0 [facility] CenterAyicbpyACQOBOWPID5539-07-28 15:29:00 Test Item Value Reference Range Interpretation Comments RDW (test code = RDW) 15.7 11.5-14.5 [facility] CenterLyrmqvdXQNMOYMCKY9226-74-92 15:29:00 Test Item Value Reference Range Interpretation Comments MCHC (test code = MCHC) 31.2 32.0-36.0 [facility] CenterRwztqxbHIENBRFCTR1071-24-97 15:29:00 Test Item Value Reference Range Interpretation Comments MCV (test code = MCV) 78.0 80.0-98.0 [facility] CenterWestttgCRERSGRWUK4510-32-38 15:29:00 Test Item Value Reference Range Interpretation Comments WBC (test code = WBC) 8.6 3.7-10.4 [place] 845915-12-14 15:29:00 Test Item Value Reference Range Interpretation Comments Hgb (test code = Hgb) 13.2 12.0-16.0 [facility] CenterHfoltnnTDPMLVWZJN4588-25-02 15:29:00 Test Item Value Reference Range Interpretation Comments RBC (test code = RBC) 5.41 4.20-5.40 [facility] CenterDqslmqoFCOYVASMAI1699-20-10 15:29:00 Test Item Value Reference Range Interpretation Comments Hct (test code = Hct) 42.1 36.0-48.0 [facility] CenterJkggxkcDXPGUTDZDW9021-23-68 15:29:00 Test Item Value Reference Range Interpretation Comments Lymphocytes # (test code = Lymphocytes 3.2 1.0-5.5 #) [facility] CenterNaorhmkRHEMNHGMAM3565-88-08 15:29:00 Test Item Value Reference Range Interpretation Comments Eosinophils # (test code 0.1 See_Comment [A utomated message] The = Eosinophils #) system whic h generated this result tra nsmitted reference range : <=0.5. The reference r kat was not used to int erpret this result as normal/abnormal . [facility] CenterVoqopytCEJVPKBFLS6560-26-25 15:29:00 Test Item Value Reference Range Interpretation Comments Monocytes # (test code 0.8 See_Comment [Aut omated message] The = Monocytes #) system which generated this result tra nsmitted reference range : <=0.8. The reference r kat was not used to int erpret this result as normal/abnormal . [facility] CenterVwrifadDGLPYZJOTF2818-44-60 15:29:00 Test Item Value Reference Range Interpretation Comments Basophils (test code = 0.7 See_Comment [Aut omated message] The Basophils) system which ge nerated this result tra nsmitted reference range : <=1.0. The reference r kat was not used to int erpret this result as normal/abnormal . [facility] CenterJocbswoSXVWFBPBYM6317-54-29 15:29:00 Test Item Value Reference Range Interpretation Comments Segs-Bands # (test code = Segs-Bands #) 4.4 1.5-8.1 [facility] CenterZdzwsipVIKBHELGPG3598-00-76 15:29:00 Test Item Value Reference Range Interpretation Comments Eosinophils (test code = 1.2 See_Comment [A utomated message] The Eosinophils) system which ge nerated this result tra nsmitted reference range : <=4.0. The reference r kat was not used to int erpret this result as normal/abnormal . [facility] HospitalIvjbqujSULNFMEBVR2144-65-93 15:29:00 Test Item Value Reference Range Interpretation Comments Lymphocytes (test code = Lymphocytes) 37.4 20.0-40.0 [facility] HospitalGuwpynnWBLPUSFDOL6161-01-20 15:29:00 Test Item Value Reference Range Interpretation Comments Monocytes (test code = Monocytes) 8.9 2.0-12.0 [facility] HospitalMdfdixvTEXTRWSNYI2844-68-65 15:29:00 Test Item Value Reference Range Interpretation Comments Segs (test code = Segs) 51.8 45.0-75.0 [facility]HzaspraFAFTZTGQSC1678-17-68 15:29:00 Test Item Value Reference Range Interpretation Comments Microcyte (test code = 1+ *ABN*(08/12/15 Microcyte) 9:29 AM) [facility] InstituteIajpbhhAKDVSHXZVX5124-08-06 15:29:00 Test Item Value Reference Range Interpretation Comments Basophils # (test code 0.1 See_Comment [Aut omated message] The = Basophils #) system which generated this result tra nsmitted reference range : <=0.2. The reference r kat was not used to int erpret this result as normal/abnormal . [facility] RJVU5787-05-23 15:29:00 Test Item Value Reference Range Interpretation Comments U Preg (test code = U Negative (08/12/15 9:29 Preg) AM) [facility] HospitalCHEM UYNNB6512-07-50 15:29:00 Test Item Value Reference Range Interpretation Comments eGFR (test code = eGFR) 101 [facility] HospitalCHEM EAQXC0464-23-85 15:29:00 Test Item Value Reference Range Interpretation Comments Creatinine Lvl (test code = Creatinine 0.81 0.50-1.40 Lvl) [facility] MPMXN6373-58-06 15:29:00 Test Item Value Reference Range Interpretation Comments CO2 (test code = CO2) 27 24-32 [facility]CHE[facility] [id number] 15:29:00 Test Item Value Reference Range Interpretation Comments Calcium Lvl (test code = Calcium Lvl) 9.7 8.5-10.5 [facility]CHE[facility] VHCTA8327-76-18 15:29:00 Test Item Value Reference Range Interpretation Comments Chloride Lvl (test code = Chloride Lvl) 100 95-109 [facility]2015-12-14 15:29:00 Test Item Value Reference Range Interpretation Comments BUN (test code = BUN) 13 7-22 [facility]2015-12-14 15:29:00 Test Item Value Reference Range Interpretation Comments Glucose Lvl (test code = Glucose Lvl) 89 70-99 [facility]2015-12-14 15:29:00 Test Item Value Reference Range Interpretation Comments Potassium Lvl (test code = Potassium 4.2 3.5-5.1 Lvl) [facility]2015-12-14 15:29:00 Test Item Value Reference Range Interpretation Comments Sodium Lvl (test code = Sodium Lvl) 134 135-145 [facility]2015-12-14 15:29:00 Test Item Value Reference Range Interpretation Comments AGAP (test code = AGAP) 11.2 10.0-20.0 [facility] CenterPfzzjgxWZEXNWSBBP9554-69-68 15:29:00 Test Item Value Reference Range Interpretation Comments MPV (test code = MPV) 9.2 7.4-10.4 [facility] CenterPonkmbjRLEQACTBQM9621-31-39 15:29:00 Test Item Value Reference Range Interpretation Comments Platelet (test code = Platelet) 307 133-450 [facility] CenterXpryhntEBGPWMQPMC2413-04-36 15:29:00 Test Item Value Reference Range Interpretation Comments MCH (test code = MCH) 24.3 pg 27.0-31.0 [facility] CenterJljanuzYILDVXDGEK4021-39-07 15:29:00 Test Item Value Reference Range Interpretation Comments RDW (test code = RDW) 15.7 11.5-14.5 [facility] CenterKjojutfPKKSCOOVDJ8074-30-04 15:29:00 Test Item Value Reference Range Interpretation Comments MCHC (test code = MCHC) 31.2 32.0-36.0 [facility] CenterLcqzroxHOEYVDJWGX3825-46-03 15:29:00 Test Item Value Reference Range Interpretation Comments MCV (test code = MCV) 78.0 80.0-98.0 [place] 845915-12-14 15:29:00 Test Item Value Reference Range Interpretation Comments WBC (test code = WBC) 8.6 3.7-10.4 [facility] CenterHkvmaoaKREGFOMFAX5480-07-52 15:29:00 Test Item Value Reference Range Interpretation Comments Hgb (test code = Hgb) 13.2 12.0-16.0 [facility] CenterBtzdszkNPKAGECQEB7025-06-77 15:29:00 Test Item Value Reference Range Interpretation Comments RBC (test code = RBC) 5.41 4.20-5.40 [facility] CenterXiqravnJEJYTASLBX0802-82-51 15:29:00 Test Item Value Reference Range Interpretation Comments Hct (test code = Hct) 42.1 36.0-48.0 [facility] CenterWlzcdggZNVZTIXZRJ8027-41-29 15:29:00 Test Item Value Reference Range Interpretation Comments Lymphocytes # (test code = Lymphocytes 3.2 1.0-5.5 #) [facility] CenterTgpthayROBXLWCNFZ0042-92-88 15:29:00 Test Item Value Reference Range Interpretation Comments Eosinophils # (test code 0.1 See_Comment [A utomated message] The = Eosinophils #) system whic h generated this result tra nsmitted reference range : <=0.5. The reference r kat was not used to int erpret this result as normal/abnormal . [facility] CenterFgmsapdVKODSELKGJ5596-09-93 15:29:00 Test Item Value Reference Range Interpretation Comments Monocytes # (test code 0.8 See_Comment [Aut omated message] The = Monocytes #) system which generated this result tra nsmitted reference range : <=0.8. The reference r kat was not used to int erpret this result as normal/abnormal . [facility] CenterGsktvytZPCGEIHZLZ5126-70-43 15:29:00 Test Item Value Reference Range Interpretation Comments Basophils (test code = 0.7 See_Comment [Aut omated message] The Basophils) system which ge nerated this result tra nsmitted reference range : <=1.0. The reference r kat was not used to int erpret this result as normal/abnormal . [facility] CenterGktyhekAXUNTRWOFQ8741-23-39 15:29:00 Test Item Value Reference Range Interpretation Comments Segs-Bands # (test code = Segs-Bands #) 4.4 1.5-8.1 [facility] CenterEicqxkzZMXGDJDAPC2839-44-45 15:29:00 Test Item Value Reference Range Interpretation Comments Eosinophils (test code = 1.2 See_Comment [A utomated message] The Eosinophils) system which ge nerated this result tra nsmitted reference range : <=4.0. The reference r kat was not used to int erpret this result as normal/abnormal . [facility] CenterCdoxjrdYBJOCBNGCS6409-25-07 15:29:00 Test Item Value Reference Range Interpretation Comments Lymphocytes (test code = Lymphocytes) 37.4 20.0-40.0 [facility] CenterGnlxzvfHNROBZRLCO5024-38-21 15:29:00 Test Item Value Reference Range Interpretation Comments Monocytes (test code = Monocytes) 8.9 2.0-12.0 [facility] CenterSropzgoOSGIIXYWQX3863-04-71 15:29:00 Test Item Value Reference Range Interpretation Comments Segs (test code = Segs) 51.8 45.0-75.0 [facility] CenterKqbbfgcVKDVGVSQPA3214-05-41 15:29:00 Test Item Value Reference Range Interpretation Comments Microcyte (test code = 1+ *ABN*(08/12/15 Microcyte) 9:29 AM) [facility] CenterHkvddjoMYABQJPGNA3791-61-74 15:29:00 Test Item Value Reference Range Interpretation Comments Basophils # (test code 0.1 See_Comment [Aut omated message] The = Basophils #) system which generated this result tra nsmitted reference range : <=0.2. The reference r kat was not used to int erpret this result as normal/abnormal . [facility]2015-12-14 15:29:00 Test Item Value Reference Range Interpretation Comments U Preg (test code = U Negative (08/12/15 9:29 Preg) AM) [facility]2015-10-26 15:15:00 Test Item Value Reference Range Interpretation Comments U Preg (test code = U Negative (06/24/15 10:15 Preg) AM) [facility]2015-10-26 15:15:00 Test Item Value Reference Range Interpretation Comments U Preg (test code = U Negative (06/24/15 10:15 Preg) AM) [facility]2015-10-26 15:15:00 Test Item Value Reference Range Interpretation Comments U Preg (test code = U Negative (06/24/15 10:15 Preg) AM) [facility]2015-10-26 15:15:00 Test Item Value Reference Range Interpretation Comments U Preg (test code = U Negative (06/24/15 10:15 Preg) AM) [facility] [id number] 15:15:[facility] Test Item Value Reference Range Interpretation Comments U Preg (test code = U Negative (06/24/15 10:15 Preg) AM) [facility] [id number] 15:15:00 Test Item Value Reference Range Interpretation Comments U Preg (test code = U Negative (06/24/15 10:15 Preg) AM) [facility] [id number] 15:15:00 Test Item Value Reference Range Interpretation Comments U Preg (test code = U Negative (06/24/15 10:15 Preg) AM) [id number] Test Item Value Reference Range Interpretation Comments U Preg (test code = U Negative (06/24/15 10:15 Preg) AM) [facility] [id number] 15:15:00 Test Item Value Reference Range Interpretation Comments U Preg (test code = U Negative (06/24/15 10:15 Preg) AM) [facility] [id number] 15:15:00 Test Item Value Reference Range Interpretation Comments U Preg (test code = U Negative (06/24/15 10:15 Preg) AM) [facility] [id number] 15:15:00 Test Item Value Reference Range Interpretation Comments U Preg (test code = U Negative (06/24/15 10:15 Preg) AM) [facility] [id number] 15:15:00 Test Item Value Reference Range Interpretation Comments U Preg (test code = U Negative (06/24/15 10:15 Preg) AM) [facility] [id number] 15:15:00 Test Item Value Reference Range Interpretation Comments U Preg (test code = U Negative (06/24/15 10:15 Preg) AM) [facility] [id number] 15:15:00 Test Item Value Reference Range Interpretation Comments U Preg (test code = U Negative (06/24/15 10:15 Preg) AM) [facility] [id number] 15:15:00 Test Item Value Reference Range Interpretation Comments U Preg (test code = U Negative (06/24/15 10:15 Preg) AM) [facility] [id number] 15:15:00 Test Item Value Reference Range Interpretation Comments U Preg (test code = U Negative (06/24/15 10:15 Preg) AM) [facility] [id number] 15:15:00 Test Item Value Reference Range Interpretation Comments U Preg (test code = U Negative (06/24/15 10:15 Preg) AM) [facility] [id number] 15:15:00 Test Item Value Reference Range Interpretation Comments U Preg (test code = U Negative (06/24/15 10:15 Preg) AM) [facility] [id number] 15:15:00 Test Item Value Reference Range Interpretation Comments U Preg (test code = U Negative (06/24/15 10:15 Preg) AM) [facility] [id number] 15:15:00 Test Item Value Reference Range Interpretation Comments U Preg (test code = U Negative (06/24/15 10:15 Preg) AM) [facility]2015-10-26 15:15:00 Test Item Value Reference Range Interpretation Comments U Preg (test code = U Negative (06/24/15 10:15 Preg) AM) [facility]2015-10-09 22:58:56 Test Item Value Reference Range Interpretation Comments U Cotinine Lvl (test Negative *NA*(06/07/15 code = U Cotinine Lvl) 5:58 PM) [facility]2015-10-09 22:58:56 Test Item Value Reference Range Interpretation Comments U Preg (test code = U Negative (06/07/15 5:58 Preg) PM) [facility] [id number] 22:58:56 Test Item Value Reference Range Interpretation Comments U Cotinine Lvl (test Negative *NA*(06/07/15 code = U Cotinine Lvl) 5:58 PM) [facility] [id number] 22:58:56 Test Item Value Reference Range Interpretation Comments U Preg (test code = U Negative (06/07/15 5:58 Preg) PM) [facility] [id number] 22:58:56 Test Item Value Reference Range Interpretation Comments U Cotinine Lvl (test Negative *NA*(06/07/15 code = U Cotinine Lvl) 5:58 PM) [facility]2015-10-09 22:58:56 Test Item Value Reference Range Interpretation Comments U Preg (test code = U Negative (06/07/15 5:58 Preg) PM) [facility]2015-10-09 22:58:56 Test Item Value Reference Range Interpretation Comments U Cotinine Lvl (test Negative *NA*(06/07/15 code = U Cotinine Lvl) 5:58 PM) [facility]2015-10-09 22:58:56 Test Item Value Reference Range Interpretation Comments U Preg (test code = U Negative (06/07/15 5:58 Preg) PM) [facility]2015-10-09 22:58:56 Test Item Value Reference Range Interpretation Comments U Cotinine Lvl (test Negative *NA*(06/07/15 code = U Cotinine Lvl) 5:58 PM) [facility]2015-10-09 22:58:56 Test Item Value Reference Range Interpretation Comments U Preg (test code = U Negative (06/07/15 5:58 Preg) PM) [facility]2015-10-09 22:58:56 Test Item Value Reference Range Interpretation Comments U Cotinine Lvl (test Negative *NA*(06/07/15 code = U Cotinine Lvl) 5:58 PM) [facility]2015-10-09 22:58:56 Test Item Value Reference Range Interpretation Comments U Preg (test code = U Negative (06/07/15 5:58 Preg) PM) [facility]2015-10-09 22:58:56 Test Item Value Reference Range Interpretation Comments U Cotinine Lvl (test Negative *NA*(06/07/15 code = U Cotinine Lvl) 5:58 PM) [facility]2015-10-09 22:58:56 Test Item Value Reference Range Interpretation Comments U Preg (test code = U Negative (06/07/15 5:58 Preg) PM) [facility]2015-10-09 22:58:56 Test Item Value Reference Range Interpretation Comments U Cotinine Lvl (test Negative *NA*(06/07/15 code = U Cotinine Lvl) 5:58 PM) [facility]2015-10-09 22:58:56 Test Item Value Reference Range Interpretation Comments U Preg (test code = U Negative (06/07/15 5:58 Preg) PM) [facility]2015-10-09 22:58:56 Test Item Value Reference Range Interpretation Comments U Cotinine Lvl (test Negative *NA*(06/07/15 code = U Cotinine Lvl) 5:58 PM) [facility]2015-10-09 22:58:56 Test Item Value Reference Range Interpretation Comments U Preg (test code = U Negative (06/07/15 5:58 Preg) PM) [facility]2015-10-09 22:58:56 Test Item Value Reference Range Interpretation Comments U Cotinine Lvl (test Negative *NA*(06/07/15 code = U Cotinine Lvl) 5:58 PM) [facility]2015-10-09 22:58:56 Test Item Value Reference Range Interpretation Comments U Preg (test code = U Negative (06/07/15 5:58 Preg) PM) [facility]2015-10-09 22:58:56 Test Item Value Reference Range Interpretation Comments U Cotinine Lvl (test Negative *NA*(06/07/15 code = U Cotinine Lvl) 5:58 PM) [facility]2015-10-09 22:58:56 Test Item Value Reference Range Interpretation Comments U Preg (test code = U Negative (06/07/15 5:58 Preg) PM) [facility]2015-10-09 22:58:56 Test Item Value Reference Range Interpretation Comments U Cotinine Lvl (test Negative *NA*(06/07/15 code = U Cotinine Lvl) 5:58 PM) [facility]2015-10-09 22:58:56 Test Item Value Reference Range Interpretation Comments U Preg (test code = U Negative (06/07/15 5:58 Preg) PM) [facility]2015-10-09 22:58:56 Test Item Value Reference Range Interpretation Comments U Cotinine Lvl (test Negative *NA*(06/07/15 code = U Cotinine Lvl) 5:58 PM) [facility]2015-10-09 22:58:56 Test Item Value Reference Range Interpretation Comments U Preg (test code = U Negative (06/07/15 5:58 Preg) PM) [facility]2015-10-09 22:58:56 Test Item Value Reference Range Interpretation Comments U Cotinine Lvl (test Negative *NA*(06/07/15 code = U Cotinine Lvl) 5:58 PM) [facility]2015-10-09 22:58:56 Test Item Value Reference Range Interpretation Comments U Preg (test code = U Negative (06/07/15 5:58 Preg) PM) [facility]2015-10-09 22:58:56 Test Item Value Reference Range Interpretation Comments U Cotinine Lvl (test Negative *NA*(06/07/15 code = U Cotinine Lvl) 5:58 PM) [facility]2015-10-09 22:58:56 Test Item Value Reference Range Interpretation Comments U Preg (test code = U Negative (06/07/15 5:58 Preg) PM) [facility]2015-10-09 22:58:56 Test Item Value Reference Range Interpretation Comments U Cotinine Lvl (test Negative *NA*(06/07/15 code = U Cotinine Lvl) 5:58 PM) [facility]2015-10-09 22:58:56 Test Item Value Reference Range Interpretation Comments U Preg (test code = U Negative (06/07/15 5:58 Preg) PM) [facility]2015-10-09 22:58:56 Test Item Value Reference Range Interpretation Comments U Cotinine Lvl (test Negative *NA*(06/07/15 code = U Cotinine Lvl) 5:58 PM) [facility]2015-10-09 22:58:56 Test Item Value Reference Range Interpretation Comments U Preg (test code = U Negative (06/07/15 5:58 Preg) PM) [facility]2015-10-09 22:58:56 Test Item Value Reference Range Interpretation Comments U Cotinine Lvl (test Negative *NA*(06/07/15 code = U Cotinine Lvl) 5:58 PM) [facility]2015-10-09 22:58:56 Test Item Value Reference Range Interpretation Comments U Preg (test code = U Negative (06/07/15 5:58 Preg) PM) [facility]2015-10-09 22:58:56 Test Item Value Reference Range Interpretation Comments U Cotinine Lvl (test Negative *NA*(06/07/15 code = U Cotinine Lvl) 5:58 PM) [facility]2015-10-09 22:58:56 Test Item Value Reference Range Interpretation Comments U Preg (test code = U Negative (06/07/15 5:58 Preg) PM) [facility]2015-10-09 22:58:56 Test Item Value Reference Range Interpretation Comments U Cotinine Lvl (test Negative *NA*(06/07/15 code = U Cotinine Lvl) 5:58 PM) [facility]2015-10-09 22:58:56 Test Item Value Reference Range Interpretation Comments U Preg (test code = U Negative (06/07/15 5:58 Preg) PM) [facility]2015-10-09 22:58:56 Test Item Value Reference Range Interpretation Comments U Cotinine Lvl (test Negative *NA*(06/07/15 code = U Cotinine Lvl) 5:58 PM) [facility]2015-10-09 22:58:56 Test Item Value Reference Range Interpretation Comments U Preg (test code = U Negative (06/07/15 5:58 Preg) PM) [facility]2015-10-09 22:53:19 Test Item Value Reference Range Interpretation Comments Transferrin (test code = Transferrin) 256 212-360 [facility]2015-10-09 22:53:19 Test Item Value Reference Range Interpretation Comments Vitamin B12 Lvl (test code = Vitamin [id number] B12 Lvl) [facility]2015-10-09 22:53:19 Test Item Value Reference Range Interpretation Comments eGFR (test code = eGFR) 70 [facility]2015-10-09 22:53:19 Test Item Value Reference Range Interpretation Comments Glucose Lvl (test code = Glucose Lvl) 103 70-99 [facility]2015-10-09 22:53:19 Test Item Value Reference Range Interpretation Comments Albumin Lvl (test code = Albumin Lvl) 3.6 3.5-5.0 [facility]2015-10-09 22:53:19 Test Item Value Reference Range Interpretation Comments CO2 (test code = CO2) 24 24-32 [facility]2015-10-09 22:53:19 Test Item Value Reference Range Interpretation Comments Total Protein (test code = Total 7.2 6.4-8.4 Protein) [facility]2015-10-09 22:53:19 Test Item Value Reference Range Interpretation Comments Creatinine Lvl (test code = Creatinine 1.1 0.5-1.4 Lvl) [facility]2015-10-09 22:53:19 Test Item Value Reference Range Interpretation Comments BUN (test code = BUN) 14 7-22 [facility]2015-10-09 22:53:19 Test Item Value Reference Range Interpretation Comments AST (test code = AST) 12 See_Comment [Auto mated message] The system which ge nerated this result transmit arvind reference range : <=37. The reference range was not used to interpr et this result as mario l/abnormal. [facility]2015-10-09 22:53:19 Test Item Value Reference Range Interpretation Comments ALT (test code = ALT) 41 See_Comment [Auto mated message] The system which ge nerated this result transmit arvind reference range : <=65. The reference range was not used to interpr et this result as mario l/abnormal. [facility]2015-10-09 22:53:19 Test Item Value Reference Range Interpretation Comments Alk Phos (test code = Alk Phos) 100 39-136 [facility]2015-10-09 22:53:19 Test Item Value Reference Range Interpretation Comments Bili Total (test code = Bili Total) 0.2 0.2-1.3 [facility]2015-10-09 22:53:19 Test Item Value Reference Range Interpretation Comments Potassium Lvl (test code = Potassium 3.9 3.5-5.1 Lvl) [facility]2015-10-09 22:53:19 Test Item Value Reference Range Interpretation Comments Sodium Lvl (test code = Sodium Lvl) 141 135-145 [facility]2015-10-09 22:53:19 Test Item Value Reference Range Interpretation Comments Calcium Lvl (test code = Calcium Lvl) 9.0 8.5-10.5 [facility]2015-10-09 22:53:19 Test Item Value Reference Range Interpretation Comments Chloride Lvl (test code = Chloride Lvl) 109 95-109 [facility]2015-10-09 22:53:19 Test Item Value Reference Range Interpretation Comments AGAP (test code = AGAP) 11.9 10.0-20.0 [facility]2015-10-09 22:53:19 Test Item Value Reference Range Interpretation Comments A/G Ratio (test code = A/G Ratio) 1.0 0.7-1.6 [facility]2015-10-09 22:53:19 Test Item Value Reference Range Interpretation Comments B/C Ratio (test code = B/C Ratio) 13 6-25 [facility]2015-10-09 22:53:19 Test Item Value Reference Range Interpretation Comments Globulin (test code = Globulin) 3.6 2.0-4.0 [facility]2015-10-09 22:53:19 Test Item Value Reference Range Interpretation Comments Magnesium Lvl (test code = Magnesium 1.8 1.8-2.4 Lvl) [id number] 22:53:19 Test Item Value Reference Range Interpretation Comments Segs (test code = Segs) 57.5 45.0-75.0 [facility] CenterLtrxkkgBKQOKUURCI5780-09-16 22:53:19 Test Item Value Reference Range Interpretation Comments Monocytes (test code = Monocytes) 7.6 2.0-12.0 [facility] CenterAnckwehZUIIIZIZRR0975-28-79 22:53:19 Test Item Value Reference Range Interpretation Comments Basophils (test code = 1.0 See_Comment [Aut omated message] The Basophils) system which ge nerated this result tra nsmitted reference range : <=1.0. The reference r kat was not used to int erpret this result as normal/abnormal . [facility] CenterYrcioazZGIJLSCWNZ3525-01-28 22:53:19 Test Item Value Reference Range Interpretation Comments Lymphocytes (test code = Lymphocytes) 32.9 20.0-40.0 [facility] CenterDtzyxxfFTRNXHDEGY2054-29-94 22:53:19 Test Item Value Reference Range Interpretation Comments Eosinophils (test code = 1.0 See_Comment [A utomated message] The Eosinophils) system which ge nerated this result tra nsmitted reference range : <=4.0. The reference r kat was not used to int erpret this result as normal/abnormal . [facility] CenterZglemeqHHXBHYMEKU1425-70-16 22:53:19 Test Item Value Reference Range Interpretation Comments Lymphocytes # (test code = Lymphocytes 3.8 1.0-5.5 #) [facility] CenterJhqbqdaYBPYPHGMYT5760-98-05 22:53:19 Test Item Value Reference Range Interpretation Comments Segs-Bands # (test code = Segs-Bands #) 6.6 1.5-8.1 [facility] CenterVflvfwlIFDKZOUMIL4558-41-52 22:53:19 Test Item Value Reference Range Interpretation Comments Eosinophils # (test code 0.1 See_Comment [A utomated message] The = Eosinophils #) system whic h generated this result tra nsmitted reference range : <=0.5. The reference r kat was not used to int erpret this result as normal/abnormal . [facility] CenterNshmvwiOROCRXWUFM8672-07-89 22:53:19 Test Item Value Reference Range Interpretation Comments Monocytes # (test code 0.9 See_Comment [Aut omated message] The = Monocytes #) system which generated this result tra nsmitted reference range : <=0.8. The reference r kat was not used to int erpret this result as normal/abnormal . [facility] CenterVfuhqenQHBEZFLQSP7345-69-29 22:53:19 Test Item Value Reference Range Interpretation Comments Microcyte (test code = 1+ *ABN*(06/07/15 Microcyte) 5:53 PM) [facility] CenterRwkdvulAVTWKNPZAF6530-73-89 22:53:19 Test Item Value Reference Range Interpretation Comments Basophils # (test code 0.1 See_Comment [Aut omated message] The = Basophils #) system which generated this result tra nsmitted reference range : <=0.2. The reference r kat was not used to int erpret this result as normal/abnormal . [facility] CenterTclbiovHTTCBSDYDU2954-22-54 22:53:19 Test Item Value Reference Range Interpretation Comments RBC (test code = RBC) 5.23 4.20-5.40 [facility] CenterNdnlkthGEKIXJLYSL7705-60-83 22:53:19 Test Item Value Reference Range Interpretation Comments Platelet (test code = Platelet) 241 133-450 [facility] CenterMptxdrnNMSXWAHAKE3687-26-66 22:53:19 Test Item Value Reference Range Interpretation Comments MPV (test code = MPV) 9.3 7.4-10.4 [facility] CenterXhhxgeoTYWVFZVXYF1470-14-20 22:53:19 Test Item Value Reference Range Interpretation Comments RDW (test code = RDW) 16.5 11.5-14.5 [facility] CenterTgrfiynXUVLHXLEMU2419-62-89 22:53:19 Test Item Value Reference Range Interpretation Comments Hct (test code = Hct) 41.0 36.0-48.0 [facility] CenterApvpdysNBVLNXKGHB0820-94-95 22:53:19 Test Item Value Reference Range Interpretation Comments Hgb (test code = Hgb) 12.7 12.0-16.0 [facility] CenterZzdypddOERXNXYUST6014-18-63 22:53:19 Test Item Value Reference Range Interpretation Comments WBC (test code = WBC) 11.5 3.7-10.4 [facility] CenterNtkescjXNQBVWXYKW9939-18-82 22:53:19 Test Item Value Reference Range Interpretation Comments MCH (test code = MCH) 24.3 pg 27.0-31.0 [facility] CenterKjxjxaoNUBLZYOXZE6945-21-90 22:53:19 Test Item Value Reference Range Interpretation Comments MCHC (test code = MCHC) 31.0 32.0-36.0 [facility] CenterZbxvxfxKXJDAFGWPB8614-58-79 22:53:19 Test Item Value Reference Range Interpretation Comments MCV (test code = MCV) 78.4 80.0-98.0 [facility] GAVVO4611[facility] 22:53:19 Test Item Value Reference Range Interpretation Comments FTI (test code = FTI) 2.5 [facility] [id number] 22:53:19 Test Item Value Reference Range Interpretation Comments TSH (test code = TSH) 1.540 0.360-3.740 [facility] IDEOA7631-76-24 22:53:19 Test Item Value Reference Range Interpretation Comments T3 Uptake (test code = T3 Uptake) 31 31-39 [facility] [id number] 22:53:19 Test Item Value Reference Range Interpretation Comments T4 (test code = T4) 8.0 4.7-13.3 [facility]2015-10-09 22:53:19 Test Item Value Reference Range Interpretation Comments B/C Ratio (test code = B/C Ratio) 13 6-25 [facility]2015-10-09 22:53:19 Test Item Value Reference Range Interpretation Comments Globulin (test code = Globulin) 3.6 2.0-4.0 [facility]2015-10-09 22:53:19 Test Item Value Reference Range Interpretation Comments Magnesium Lvl (test code = Magnesium 1.8 1.8-2.4 Lvl) [facility] CenterGqdvbzmZXNNXUKDKW5131-91-27 22:53:19 Test Item Value Reference Range Interpretation Comments Segs (test code = Segs) 57.5 45.0-75.0 [facility] CenterSudkufmMJKQLIVJWD0123-54-83 22:53:19 Test Item Value Reference Range Interpretation Comments Monocytes (test code = Monocytes) 7.6 2.0-12.0 [facility] CenterWyeewmuLBDRYKKDNH9440-23-31 22:53:19 Test Item Value Reference Range Interpretation Comments Basophils (test code = 1.0 See_Comment [Aut omated message] The Basophils) system which ge nerated this result tra nsmitted reference range : <=1.0. The reference r kat was not used to int erpret this result as normal/abnormal . [facility] CenterAkccwyzFJPTODKVKU0098-25-43 22:53:19 Test Item Value Reference Range Interpretation Comments Lymphocytes (test code = Lymphocytes) 32.9 20.0-40.0 [facility] CenterYzprnfnUJWRHSHECX4131-37-87 22:53:19 Test Item Value Reference Range Interpretation Comments Eosinophils (test code = 1.0 See_Comment [A utomated message] The Eosinophils) system which ge nerated this result tra nsmitted reference range : <=4.0. The reference r kat was not used to int erpret this result as normal/abnormal . [facility] CenterAxhktezVNAOKJDTSM7471-37-29 22:53:19 Test Item Value Reference Range Interpretation Comments Lymphocytes # (test code = Lymphocytes 3.8 1.0-5.5 #) [facility] CenterUzgfwqoOINTBMYNEA4461-72-52 22:53:19 Test Item Value Reference Range Interpretation Comments Segs-Bands # (test code = Segs-Bands #) 6.6 1.5-8.1 [facility] CenterNuoauemXPEMTGXHJQ0688-83-51 22:53:19 Test Item Value Reference Range Interpretation Comments Eosinophils # (test code 0.1 See_Comment [A utomated message] The = Eosinophils #) system whic h generated this result tra nsmitted reference range : <=0.5. The reference r kat was not used to int erpret this result as normal/abnormal . [facility] CenterRlcczulXZLZJIVGTR3440-05-00 22:53:19 Test Item Value Reference Range Interpretation Comments Monocytes # (test code 0.9 See_Comment [Aut omated message] The = Monocytes #) system which generated this result tra nsmitted reference range : <=0.8. The reference r kat was not used to int erpret this result as normal/abnormal . [facility] CenterBlexmhvARNGIJGZFX7601-93-77 22:53:19 Test Item Value Reference Range Interpretation Comments Microcyte (test code = 1+ *ABN*(06/07/15 Microcyte) 5:53 PM) [facility] CenterLxtemnlYQJZUVOCUV2608-70-29 22:53:19 Test Item Value Reference Range Interpretation Comments Basophils # (test code 0.1 See_Comment [Aut omated message] The = Basophils #) system which generated this result tra nsmitted reference range : <=0.2. The reference r kat was not used to int erpret this result as normal/abnormal . [facility] CenterHksftfxMVGDKKMDRV8902-29-39 22:53:19 Test Item Value Reference Range Interpretation Comments RBC (test code = RBC) 5.23 4.20-5.40 [facility] CenterEywghvaGCUZBIPUNT9926-70-97 22:53:19 Test Item Value Reference Range Interpretation Comments Platelet (test code = Platelet) 241 133-450 [facility] CenterYcbffbzEYWCSLAHGS4229-88-57 22:53:19 Test Item Value Reference Range Interpretation Comments MPV (test code = MPV) 9.3 7.4-10.4 [facility] CenterYoewgsyNJIBSSWCNJ5669-67-04 22:53:19 Test Item Value Reference Range Interpretation Comments RDW (test code = RDW) 16.5 11.5-14.5 [facility] CenterWebkzvaIQJGRKQSXB3306-41-24 22:53:19 Test Item Value Reference Range Interpretation Comments Hct (test code = Hct) 41.0 36.0-48.0 [facility] CenterQsuxqxoYUIUEXMKGL6643-91-98 22:53:19 Test Item Value Reference Range Interpretation Comments Hgb (test code = Hgb) 12.7 12.0-16.0 [facility] CenterVxkdxwyTIXCYUCGWW7655-01-70 22:53:19 Test Item Value Reference Range Interpretation Comments WBC (test code = WBC) 11.5 3.7-10.4 [facility] CenterJupxlhfZAJOTDXFYN7461-64-94 22:53:19 Test Item Value Reference Range Interpretation Comments MCH (test code = MCH) 24.3 pg 27.0-31.0 [facility] CenterFkuijsmKXXTGRAHYD1177-34-91 22:53:19 Test Item Value Reference Range Interpretation Comments MCHC (test code = MCHC) 31.0 32.0-36.0 [facility] CenterYtxprtrJNLRDAROEI0786-03-26 22:53:19 Test Item Value Reference Range Interpretation Comments MCV (test code = MCV) 78.4 80.0-98.0 [facility]2015-10-09 22:53:19 Test Item Value Reference Range Interpretation Comments FTI (test code = FTI) 2.5 [facility]2015-10-09 22:53:19 Test Item Value Reference Range Interpretation Comments TSH (test code = TSH) 1.540 0.360-3.740 [facility]2015-10-09 22:53:19 Test Item Value Reference Range Interpretation Comments T3 Uptake (test code = T3 Uptake) 31 31-39 [facility]2015-10-09 22:53:19 Test Item Value Reference Range Interpretation Comments T4 (test code = T4) 8.0 4.7-13.3 [facility]2015-10-09 22:53:19 Test Item Value Reference Range Interpretation Comments Transferrin (test code = Transferrin) 256 212-360 [facility]2015-10-09 22:53:19 Test Item Value Reference Range Interpretation Comments Vitamin B12 Lvl (test code = Vitamin [phone] B12 Lvl) [facility]2015-10-09 22:53:19 Test Item Value Reference Range Interpretation Comments eGFR (test code = eGFR) 70 [facility]2015-10-09 22:53:19 Test Item Value Reference Range Interpretation Comments Glucose Lvl (test code = Glucose Lvl) 103 70-99 [facility]2015-10-09 22:53:19 Test Item Value Reference Range Interpretation Comments Albumin Lvl (test code = Albumin Lvl) 3.6 3.5-5.0 [facility]2015-10-09 22:53:19 Test Item Value Reference Range Interpretation Comments CO2 (test code = CO2) 24 24-32 [facility]2015-10-09 22:53:19 Test Item Value Reference Range Interpretation Comments Total Protein (test code = Total 7.2 6.4-8.4 Protein) [facility]2015-10-09 22:53:19 Test Item Value Reference Range Interpretation Comments Creatinine Lvl (test code = Creatinine 1.1 0.5-1.4 Lvl) [facility]2015-10-09 22:53:19 Test Item Value Reference Range Interpretation Comments BUN (test code = BUN) 14 7-22 [facility]2015-10-09 22:53:19 Test Item Value Reference Range Interpretation Comments AST (test code = AST) 12 See_Comment [Auto mated message] The system which ge nerated this result transmit arvind reference range : <=37. The reference range was not used to interpr et this result as mario l/abnormal. [facility]2015-10-09 22:53:19 Test Item Value Reference Range Interpretation Comments ALT (test code = ALT) 41 See_Comment [Auto mated message] The system which ge nerated this result transmit arvind reference range : <=65. The reference range was not used to interpr et this result as mario l/abnormal. [facility]2015-10-09 22:53:19 Test Item Value Reference Range Interpretation Comments Alk Phos (test code = Alk Phos) 100 39-136 [facility]2015-10-09 22:53:19 Test Item Value Reference Range Interpretation Comments Bili Total (test code = Bili Total) 0.2 0.2-1.3 [facility]2015-10-09 22:53:19 Test Item Value Reference Range Interpretation Comments Potassium Lvl (test code = Potassium 3.9 3.5-5.1 Lvl) [facility]2015-10-09 22:53:19 Test Item Value Reference Range Interpretation Comments Sodium Lvl (test code = Sodium Lvl) 141 135-145 [facility]2015-10-09 22:53:19 Test Item Value Reference Range Interpretation Comments Calcium Lvl (test code = Calcium Lvl) 9.0 8.5-10.5 [facility]2015-10-09 22:53:19 Test Item Value Reference Range Interpretation Comments Chloride Lvl (test code = Chloride Lvl) 109 95-109 [facility]2015-10-09 22:53:19 Test Item Value Reference Range Interpretation Comments AGAP (test code = AGAP) 11.9 10.0-20.0 [facility]2015-10-09 22:53:19 Test Item Value Reference Range Interpretation Comments A/G Ratio (test code = A/G Ratio) 1.0 0.7-1.6 [facility]2015-10-09 22:53:19 Test Item Value Reference Range Interpretation Comments B/C Ratio (test code = B/C Ratio) 13 6-25 [facility]2015-10-09 22:53:19 Test Item Value Reference Range Interpretation Comments Globulin (test code = Globulin) 3.6 2.0-4.0 [facility]2015-10-09 22:53:19 Test Item Value Reference Range Interpretation Comments Magnesium Lvl (test code = Magnesium 1.8 1.8-2.4 Lvl) [facility] CenterMzxuocpKJNHCECPFS4942-90-08 22:53:19 Test Item Value Reference Range Interpretation Comments Segs (test code = Segs) 57.5 45.0-75.0 [facility] CenterRayayypDCYTDBOPFG3719-78-73 22:53:19 Test Item Value Reference Range Interpretation Comments Monocytes (test code = Monocytes) 7.6 2.0-12.0 [facility] CenterBufqehiHHSIDVWSLP5415-23-61 22:53:19 Test Item Value Reference Range Interpretation Comments Basophils (test code = 1.0 See_Comment [Aut omated message] The Basophils) system which ge nerated this result tra nsmitted reference range : <=1.0. The reference r kat was not used to int erpret this result as normal/abnormal . [facility] CenterKnaxdbjDVHEZYWJLP1752-20-03 22:53:19 Test Item Value Reference Range Interpretation Comments Lymphocytes (test code = Lymphocytes) 32.9 20.0-40.0 [facility] CenterUqdrbdsHGOWKYJUXL1106-11-64 22:53:19 Test Item Value Reference Range Interpretation Comments Eosinophils (test code = 1.0 See_Comment [A utomated message] The Eosinophils) system which ge nerated this result tra nsmitted reference range : <=4.0. The reference r kat was not used to int erpret this result as normal/abnormal . [facility] CenterGwonrrxHGWYCQMIZS4627-50-85 22:53:19 Test Item Value Reference Range Interpretation Comments Lymphocytes # (test code = Lymphocytes 3.8 1.0-5.5 #) [facility] CenterNcujfcnURVLBESEIQ2513-86-17 22:53:19 Test Item Value Reference Range Interpretation Comments Segs-Bands # (test code = Segs-Bands #) 6.6 1.5-8.1 [facility] CenterHbgxxsiQLABDFQRRQ4206-86-34 22:53:19 Test Item Value Reference Range Interpretation Comments Eosinophils # (test code 0.1 See_Comment [A utomated message] The = Eosinophils #) system whic h generated this result tra nsmitted reference range : <=0.5. The reference r kat was not used to int erpret this result as normal/abnormal . [facility] CenterAbsktuiBYCJEPQQML7390-06-57 22:53:19 Test Item Value Reference Range Interpretation Comments Monocytes # (test code 0.9 See_Comment [Aut omated message] The = Monocytes #) system which generated this result tra nsmitted reference range : <=0.8. The reference r kat was not used to int erpret this result as normal/abnormal . [facility] CenterXmuvszaYIQBBKVADX0350-94-74 22:53:19 Test Item Value Reference Range Interpretation Comments Microcyte (test code = 1+ *ABN*(06/07/15 Microcyte) 5:53 PM) [facility] CenterJuplrsyTRTVCQEMMT7971-66-58 22:53:19 Test Item Value Reference Range Interpretation Comments Basophils # (test code 0.1 See_Comment [Aut omated message] The = Basophils #) system which generated this result tra nsmitted reference range : <=0.2. The reference r kat was not used to int erpret this result as normal/abnormal . [facility] CenterAvjngnqVZGTACABTG1377-54-05 22:53:19 Test Item Value Reference Range Interpretation Comments RBC (test code = RBC) 5.23 4.20-5.40 [facility] CenterLdyrbcqPAOAXDJBMM1751-06-99 22:53:19 Test Item Value Reference Range Interpretation Comments Platelet (test code = Platelet) 241 133-450 [facility] CenterRaptzonZYMVGAHTHD1212-99-83 22:53:19 Test Item Value Reference Range Interpretation Comments MPV (test code = MPV) 9.3 7.4-10.4 [facility] CenterSwpygurAEQWEHRQKC3809-51-37 22:53:19 Test Item Value Reference Range Interpretation Comments RDW (test code = RDW) 16.5 11.5-14.5 [facility] CenterBzibslzFHLOCPQHPT8106-31-32 22:53:19 Test Item Value Reference Range Interpretation Comments Hct (test code = Hct) 41.0 36.0-48.0 [facility] CenterHqtfqluZOKEOELLRI8678-63-96 22:53:19 Test Item Value Reference Range Interpretation Comments Hgb (test code = Hgb) 12.7 12.0-16.0 [facility] CenterTtollyeVYLPNXTWYH0599-78-83 22:53:19 Test Item Value Reference Range Interpretation Comments WBC (test code = WBC) 11.5 3.7-10.4 [facility] CenterQixgxptDYNIHFLFNW9236-07-22 22:53:19 Test Item Value Reference Range Interpretation Comments MCH (test code = MCH) 24.3 pg 27.0-31.0 [facility] CenterDlkdwomBYJJCFOHJG8870-86-64 22:53:19 Test Item Value Reference Range Interpretation Comments MCHC (test code = MCHC) 31.0 32.0-36.0 [facility] CenterTlawayxFRUDUBMIAP6191-58-88 22:53:19 Test Item Value Reference Range Interpretation Comments MCV (test code = MCV) 78.4 80.0-98.0 [facility]2015-10-09 22:53:19 Test Item Value Reference Range Interpretation Comments FTI (test code = FTI) 2.5 [facility] L[facility]TT9338[facility] 22:53:19 Test Item Value Reference Range Interpretation Comments TSH (test code = TSH) 1.540 0.360-3.740 [facility]2015-10-09 22:53:19 Test Item Value Reference Range Interpretation Comments T3 Uptake (test code = T3 Uptake) 31 31-39 [facility]2015-10-09 22:53:19 Test Item Value Reference Range Interpretation Comments T4 (test code = T4) 8.0 4.7-13.3 [facility]2015-10-09 22:53:19 Test Item Value Reference Range Interpretation Comments Transferrin (test code = Transferrin) 256 212-360 [facility]PramodGLENBEIGH HOSPITALKODCL7156-01-34 22:53:19 Test Item Value Reference Range Interpretation Comments Vitamin B12 Lvl (test code = Vitamin 922 588-2230 B12 Lvl) [facility]2015-10-09 22:53:19 Test Item Value Reference Range Interpretation Comments eGFR (test code = eGFR) 70 [facility]2015-10-09 22:53:19 Test Item Value Reference Range Interpretation Comments Glucose Lvl (test code = Glucose Lvl) 103 70-99 [facility]2015-10-09 22:53:19 Test Item Value Reference Range Interpretation Comments Albumin Lvl (test code = Albumin Lvl) 3.6 3.5-5.0 [facility]2015-10-09 22:53:19 Test Item Value Reference Range Interpretation Comments CO2 (test code = CO2) 24 24-32 [facility]2015-10-09 22:53:19 Test Item Value Reference Range Interpretation Comments Total Protein (test code = Total 7.2 6.4-8.4 Protein) [facility]2015-10-09 22:53:19 Test Item Value Reference Range Interpretation Comments Creatinine Lvl (test code = Creatinine 1.1 0.5-1.4 Lvl) [facility]2015-10-09 22:53:19 Test Item Value Reference Range Interpretation Comments BUN (test code = BUN) 14 7-22 [facility]2015-10-09 22:53:19 Test Item Value Reference Range Interpretation Comments AST (test code = AST) 12 See_Comment [Auto mated message] The system which ge nerated this result transmit arvind reference range : <=37. The reference range was not used to interpr et this result as mario l/abnormal. [facility]2015-10-09 22:53:19 Test Item Value Reference Range Interpretation Comments ALT (test code = ALT) 41 See_Comment [Auto mated message] The system which ge nerated this result transmit arvind reference range : <=65. The reference range was not used to interpr et this result as mario l/abnormal. [facility]2015-10-09 22:53:19 Test Item Value Reference Range Interpretation Comments Alk Phos (test code = Alk Phos) 100 39-136 [facility]2015-10-09 22:53:19 Test Item Value Reference Range Interpretation Comments Bili Total (test code = Bili Total) 0.2 0.2-1.3 [facility]2015-10-09 22:53:19 Test Item Value Reference Range Interpretation Comments Potassium Lvl (test code = Potassium 3.9 3.5-5.1 Lvl) [facility]2015-10-09 22:53:19 Test Item Value Reference Range Interpretation Comments Sodium Lvl (test code = Sodium Lvl) 141 135-145 [facility]2015-10-09 22:53:19 Test Item Value Reference Range Interpretation Comments Calcium Lvl (test code = Calcium Lvl) 9.0 8.5-10.5 [facility]2015-10-09 22:53:19 Test Item Value Reference Range Interpretation Comments Chloride Lvl (test code = Chloride Lvl) 109 95-109 [facility]2015-10-09 22:53:19 Test Item Value Reference Range Interpretation Comments AGAP (test code = AGAP) 11.9 10.0-20.0 [facility]2015-10-09 22:53:19 Test Item Value Reference Range Interpretation Comments A/G Ratio (test code = A/G Ratio) 1.0 0.7-1.6 [facility]2015-10-09 22:53:19 Test Item Value Reference Range Interpretation Comments B/C Ratio (test code = B/C Ratio) 13 6-25 [facility]2015-10-09 22:53:19 Test Item Value Reference Range Interpretation Comments Globulin (test code = Globulin) 3.6 2.0-4.0 [facility]2015-10-09 22:53:19 Test Item Value Reference Range Interpretation Comments Magnesium Lvl (test code = Magnesium 1.8 1.8-2.4 Lvl) [facility] CenterLonpdowIWZPDHICHT3853-95-64 22:53:19 Test Item Value Reference Range Interpretation Comments Segs (test code = Segs) 57.5 45.0-75.0 [facility] CenterKkirraxRKXAYLSOML0587-50-61 22:53:19 Test Item Value Reference Range Interpretation Comments Monocytes (test code = Monocytes) 7.6 2.0-12.0 [facility] CenterYwwgifgMSMOCBQAWR8368-43-70 22:53:19 Test Item Value Reference Range Interpretation Comments Basophils (test code = 1.0 See_Comment [Aut omated message] The Basophils) system which ge nerated this result tra nsmitted reference range : <=1.0. The reference r kat was not used to int erpret this result as normal/abnormal . [facility] CenterLjojsglKCXIMQOHUD3737-65-93 22:53:19 Test Item Value Reference Range Interpretation Comments Lymphocytes (test code = Lymphocytes) 32.9 20.0-40.0 [facility] CenterGmqihloHPIMTGKLTY1932-82-26 22:53:19 Test Item Value Reference Range Interpretation Comments Eosinophils (test code = 1.0 See_Comment [A utomated message] The Eosinophils) system which ge nerated this result tra nsmitted reference range : <=4.0. The reference r kat was not used to int erpret this result as normal/abnormal . [facility] CenterQddgtylFRLGABKQYT9054-05-00 22:53:19 Test Item Value Reference Range Interpretation Comments Lymphocytes # (test code = Lymphocytes 3.8 1.0-5.5 #) [facility] CenterLmjvgawDEOHQWHWHF0043-16-46 22:53:19 Test Item Value Reference Range Interpretation Comments Segs-Bands # (test code = Segs-Bands #) 6.6 1.5-8.1 [facility] CenterRguegdzDPWWVMMSVN8306-22-22 22:53:19 Test Item Value Reference Range Interpretation Comments Eosinophils # (test code 0.1 See_Comment [A utomated message] The = Eosinophils #) system [facility] h generated this result tra nsmitted reference range : <=0.5. The reference r kat was not used to int erpret this result as normal/abnormal . [facility] CenterFfabmkcTCEYRDCSDR1800-08-68 22:53:19 Test Item Value Reference Range Interpretation Comments Monocytes # (test code 0.9 See_Comment [Aut omated message] The = Monocytes #) system which generated this result tra nsmitted reference range : <=0.8. The reference r kat was not used to int erpret this result as normal/abnormal . [facility] CenterZdpykcfCXDKWFDVRY3463-80-93 22:53:19 Test Item Value Reference Range Interpretation Comments Microcyte (test code = 1+ *ABN*(06/07/15 Microcyte) 5:53 PM) [facility] CenterDgxapbbLWKTVTYAUL5254-06-05 22:53:19 Test Item Value Reference Range Interpretation Comments Basophils # (test code 0.1 See_Comment [Aut omated message] The = Basophils #) system which generated this result tra nsmitted reference range : <=0.2. The reference r kat was not used to int erpret this result as normal/abnormal . [facility] CenterKzozjhcZXWFDNKRGS2227-80-74 22:53:19 Test Item Value Reference Range Interpretation Comments RBC (test code = RBC) 5.23 4.20-5.40 [facility] CenterUgiqcxhDHRSHGBFEH8534-89-65 22:53:19 Test Item Value Reference Range Interpretation Comments Platelet (test code = Platelet) 241 133-450 [facility] CenterWacjcsgAGNSTNTGFU1595-43-03 22:53:19 Test Item Value Reference Range Interpretation Comments MPV (test code = MPV) 9.3 7.4-10.4 [facility] CenterUurhnptIUIZKEDEFW6730-08-48 22:53:19 Test Item Value Reference Range Interpretation Comments RDW (test code = RDW) 16.5 11.5-14.5 [facility] CenterTlqwiutHKJXAHPLAZ1241-15-19 22:53:19 Test Item Value Reference Range Interpretation Comments Hct (test code = Hct) 41.0 36.0-48.0 [facility] CenterTzyyvpeCJAEESFMSX1519-46-36 22:53:19 Test Item Value Reference Range Interpretation Comments Hgb (test code = Hgb) 12.7 12.0-16.0 [facility] CenterExfebmcPSDAWRKPIL1733-61-92 22:53:19 Test Item Value Reference Range Interpretation Comments WBC (test code = WBC) 11.5 3.7-10.4 [facility] CenterDdkeawaPUSETFUSND7829-14-16 22:53:19 Test Item Value Reference Range Interpretation Comments MCH (test code = MCH) 24.3 pg 27.0-31.0 [facility] CenterZuktaugVFVHDECFWO0748-01-16 22:53:19 Test Item Value Reference Range Interpretation Comments MCHC (test code = MCHC) 31.0 32.0-36.0 [facility] CenterAveguhzEZFUPVSPAP0047-58-99 22:53:19 Test Item Value Reference Range Interpretation Comments MCV (test code = MCV) 78.4 80.0-98.0 [facility]2015-10-09 22:53:19 Test Item Value Reference Range Interpretation Comments FTI (test code = FTI) 2.5 [facility]2015-10-09 22:53:19 Test Item Value Reference Range Interpretation Comments TSH (test code = TSH) 1.540 0.360-3.740 [facility]2015-10-09 22:53:19 Test Item Value Reference Range Interpretation Comments T3 Uptake (test code = T3 Uptake) 31 31-39 [facility]2015-10-09 22:53:19 Test Item Value Reference Range Interpretation Comments T4 (test code = T4) 8.0 4.7-13.3 [facility]2015-10-09 22:53:19 Test Item Value Reference Range Interpretation Comments Transferrin (test code = Transferrin) 256 212-360 [facility]2015-10-09 22:53:19 Test Item Value Reference Range Interpretation Comments Vitamin B12 Lvl (test code = Vitamin 631 191-6883 B12 Lvl) [facility]2015-10-09 22:53:19 Test Item Value Reference Range Interpretation Comments eGFR (test code = eGFR) 70 [facility]2015-10-09 22:53:19 Test Item Value Reference Range Interpretation Comments Glucose Lvl (test code = Glucose Lvl) 103 70-99 [facility]2015-10-09 22:53:19 Test Item Value Reference Range Interpretation Comments Albumin Lvl (test code = Albumin Lvl) 3.6 3.5-5.0 [facility]2015-10-09 22:53:19 Test Item Value Reference Range Interpretation Comments CO2 (test code = CO2) 24 24-32 [facility]2015-10-09 22:53:19 Test Item Value Reference Range Interpretation Comments Total Protein (test code = Total 7.2 6.4-8.4 Protein) [facility]2015-10-09 22:53:19 Test Item Value Reference Range Interpretation Comments Creatinine Lvl (test code = Creatinine 1.1 0.5-1.4 Lvl) [facility]2015-10-09 22:53:19 Test Item Value Reference Range Interpretation Comments BUN (test code = BUN) 14 7-22 [facility]2015-10-09 22:53:19 Test Item Value Reference Range Interpretation Comments AST (test code = AST) 12 See_Comment [Auto mated message] The system which ge nerated this result transmit arvind reference range : <=37. The reference range was not used to interpr et this result as mario l/abnormal. [facility]2015-10-09 22:53:19 Test Item Value Reference Range Interpretation Comments ALT (test code = ALT) 41 See_Comment [Auto mated message] The system which ge nerated this result transmit arvind reference range : <=65. The reference range was not used to interpr et this result as mario l/abnormal. [facility]2015-10-09 22:53:19 Test Item Value Reference Range Interpretation Comments Alk Phos (test code = Alk Phos) 100 39-136 [facility]2015-10-09 22:53:19 Test Item Value Reference Range Interpretation Comments Bili Total (test code = Bili Total) 0.2 0.2-1.3 [facility]2015-10-09 22:53:19 Test Item Value Reference Range Interpretation Comments Potassium Lvl (test code = Potassium 3.9 3.5-5.1 Lvl) [facility]2015-10-09 22:53:19 Test Item Value Reference Range Interpretation Comments Sodium Lvl (test code = Sodium Lvl) 141 135-145 [facility]2015-10-09 22:53:19 Test Item Value Reference Range Interpretation Comments Calcium Lvl (test code = Calcium Lvl) 9.0 8.5-10.5 [facility]2015-10-09 22:53:19 Test Item Value Reference Range Interpretation Comments Chloride Lvl (test code = Chloride Lvl) 109 95-109 [facility]2015-10-09 22:53:19 Test Item Value Reference Range Interpretation Comments AGAP (test code = AGAP) 11.9 10.0-20.0 [facility]2015-10-09 22:53:19 Test Item Value Reference Range Interpretation Comments A/G Ratio (test code = A/G Ratio) 1.0 0.7-1.6 [facility]2015-10-09 22:53:19 Test Item Value Reference Range Interpretation Comments B/C Ratio (test code = B/C Ratio) 13 6-25 [facility]2015-10-09 22:53:19 Test Item Value Reference Range Interpretation Comments Globulin (test code = Globulin) 3.6 2.0-4.0 [facility]2015-10-09 22:53:19 Test Item Value Reference Range Interpretation Comments Magnesium Lvl (test code = Magnesium 1.8 1.8-2.4 Lvl) [facility] CenterBvwoctqNFOLUVAHEC8065-89-34 22:53:19 Test Item Value Reference Range Interpretation Comments Segs (test code = Segs) 57.5 45.0-75.0 [facility] CenterMgrqktqZMBZSDVCNG0855-83-85 22:53:19 Test Item Value Reference Range Interpretation Comments Monocytes (test code = Monocytes) 7.6 2.0-12.0 [facility] CenterXphjdswDTADZWNNEF4698-29-07 22:53:19 Test Item Value Reference Range Interpretation Comments Basophils (test code = 1.0 See_Comment [Aut omated message] The Basophils) system which ge nerated this result tra nsmitted reference range : <=1.0. The reference r kat was not used to int erpret this result as normal/abnormal . [facility] CenterByexopxGMCLAELVGI1273-69-84 22:53:19 Test Item Value Reference Range Interpretation Comments Lymphocytes (test code = Lymphocytes) 32.9 20.0-40.0 [facility] CenterZcdujerPMOFANDBZN1957-88-93 22:53:19 Test Item Value Reference Range Interpretation Comments Eosinophils (test code = 1.0 See_Comment [A utomated message] The Eosinophils) system which ge nerated this result tra nsmitted reference range : <=4.0. The reference r kat was not used to int erpret this result as normal/abnormal . [facility] CenterGquulckFIFPTAZVPV6110-33-52 22:53:19 Test Item Value Reference Range Interpretation Comments Lymphocytes # (test code = Lymphocytes 3.8 1.0-5.5 #) [facility] CenterXwqujfmGEEIIQLJHB0126-67-63 22:53:19 Test Item Value Reference Range Interpretation Comments Segs-Bands # (test code = Segs-Bands #) 6.6 1.5-8.1 [facility] CenterChidedoBXJDRQPXXK9028-15-03 22:53:19 Test Item Value Reference Range Interpretation Comments Eosinophils # (test code 0.1 See_Comment [A utomated message] The = Eosinophils #) system whic h generated this result tra nsmitted reference range : <=0.5. The reference r kat was not used to int erpret this result as normal/abnormal . [facility] CenterXkaikwpWOQXOWFONQ7714-58-43 22:53:19 Test Item Value Reference Range Interpretation Comments Monocytes # (test code 0.9 See_Comment [Aut omated message] The = Monocytes #) system which generated this result tra nsmitted reference range : <=0.8. The reference r kat was not used to int erpret this result as normal/abnormal . [facility] CenterKoxwmoeQDYBXQMGGQ9022-19-60 22:53:19 Test Item Value Reference Range Interpretation Comments Microcyte (test code = 1+ *ABN*(06/07/15 Microcyte) 5:53 PM) [facility] CenterBqyxkmuIRCIZCDUFZ5760-74-45 22:53:19 Test Item Value Reference Range Interpretation Comments Basophils # (test code 0.1 See_Comment [Aut omated message] The = Basophils #) system which generated this result tra nsmitted reference range : <=0.2. The reference r kat was not used to int erpret this result as normal/abnormal . [facility] CenterFpdigszHBVDAKGCNV5617-67-87 22:53:19 Test Item Value Reference Range Interpretation Comments RBC (test code = RBC) 5.23 4.20-5.40 [facility] CenterCemoshsKXIGAKFXDA0512-78-43 22:53:19 Test Item Value Reference Range Interpretation Comments Platelet (test code = Platelet) 241 133-450 [facility] CenterErrpidsYDTSIHBHHY4817-93-60 22:53:19 Test Item Value Reference Range Interpretation Comments MPV (test code = MPV) 9.3 7.4-10.4 [facility] CenterBnxobrwYTZZYAYKWJ8110-20-06 22:53:19 Test Item Value Reference Range Interpretation Comments RDW (test code = RDW) 16.5 11.5-14.5 [facility] CenterMyxxkcxMCSVRGOCOG6596-59-43 22:53:19 Test Item Value Reference Range Interpretation Comments Hct (test code = Hct) 41.0 36.0-48.0 [facility] CenterMphjiylEWWNYWQDFK8385-47-21 22:53:19 Test Item Value Reference Range Interpretation Comments Hgb (test code = Hgb) 12.7 12.0-16.0 [facility] CenterBseopbhLSLILCMOJA6252-23-33 22:53:19 Test Item Value Reference Range Interpretation Comments WBC (test code = WBC) 11.5 3.7-10.4 [facility] CenterHttqovdKSQZCMJMGY6232-56-14 22:53:19 Test Item Value Reference Range Interpretation Comments MCH (test code = MCH) 24.3 pg 27.0-31.0 [facility] CenterDwgxbobMKVIKHMJHO4319-94-71 22:53:19 Test Item Value Reference Range Interpretation Comments MCHC (test code = MCHC) 31.0 32.0-36.0 [facility] CenterQrfvzauHYFWEKIUCJ5341-95-89 22:53:19 Test Item Value Reference Range Interpretation Comments MCV (test code = MCV) 78.4 80.0-98.0 [facility]2015-10-09 22:53:19 Test Item Value Reference Range Interpretation Comments FTI (test code = FTI) 2.5 [facility]2015-10-09 22:53:19 Test Item Value Reference Range Interpretation Comments TSH (test code = TSH) 1.540 0.360-3.740 [facility]2015-10-09 22:53:19 Test Item Value Reference Range Interpretation Comments T3 Uptake (test code = T3 Uptake) 31 31-39 [facility]2015-10-09 22:53:19 Test Item Value Reference Range Interpretation Comments T4 (test code = T4) 8.0 4.7-13.3 [facility]2015-10-09 22:53:19 Test Item Value Reference Range Interpretation Comments Transferrin (test code = Transferrin) 256 212-360 [facility]2015-10-09 22:53:19 Test Item Value Reference Range Interpretation Comments Vitamin B12 Lvl (test code = Vitamin 675 [id number] B12 Lvl) [facility]2015-10-09 22:53:19 Test Item Value Reference Range Interpretation Comments eGFR (test code = eGFR) 70 [facility]2015-10-09 22:53:19 Test Item Value Reference Range Interpretation Comments Glucose Lvl (test code = Glucose Lvl) 103 70-99 [facility]2015-10-09 22:53:19 Test Item Value Reference Range Interpretation Comments Albumin Lvl (test code = Albumin Lvl) 3.6 3.5-5.0 [facility]2015-10-09 22:53:19 Test Item Value Reference Range Interpretation Comments CO2 (test code = CO2) 24 24-32 [facility]2015-10-09 22:53:19 Test Item Value Reference Range Interpretation Comments Total Protein (test code = Total 7.2 6.4-8.4 Protein) [facility]2015-10-09 22:53:19 Test Item Value Reference Range Interpretation Comments Creatinine Lvl (test code = Creatinine 1.1 0.5-1.4 Lvl) [facility]2015-10-09 22:53:19 Test Item Value Reference Range Interpretation Comments BUN (test code = BUN) 14 7-22 [facility]2015-10-09 22:53:19 Test Item Value Reference Range Interpretation Comments AST (test code = AST) 12 See_Comment [Auto mated message] The system which ge nerated this result transmit arvind reference range : <=37. The reference range was not used to interpr et this result as mario l/abnormal. [facility]2015-10-09 22:53:19 Test Item Value Reference Range Interpretation Comments ALT (test code = ALT) 41 See_Comment [Auto mated message] The system which ge nerated this result transmit arvind reference range : <=65. The reference range was not used to interpr et this result as mario l/abnormal. [facility]2015-10-09 22:53:19 Test Item Value Reference Range Interpretation Comments Alk Phos (test code = Alk Phos) 100 39-136 [facility]2015-10-09 22:53:19 Test Item Value Reference Range Interpretation Comments Bili Total (test code = Bili Total) 0.2 0.2-1.3 [facility]2015-10-09 22:53:19 Test Item Value Reference Range Interpretation Comments Potassium Lvl (test code = Potassium 3.9 3.5-5.1 Lvl) [facility]2015-10-09 22:53:19 Test Item Value Reference Range Interpretation Comments Sodium Lvl (test code = Sodium Lvl) 141 135-145 [facility]2015-10-09 22:53:19 Test Item Value Reference Range Interpretation Comments Calcium Lvl (test code = Calcium Lvl) 9.0 8.5-10.5 [facility]2015-10-09 22:53:19 Test Item Value Reference Range Interpretation Comments Chloride Lvl (test code = Chloride Lvl) 109 95-109 [facility]2015-10-09 22:53:19 Test Item Value Reference Range Interpretation Comments AGAP (test code = AGAP) 11.9 10.0-20.0 [facility]2015-10-09 22:53:19 Test Item Value Reference Range Interpretation Comments A/G Ratio (test code = A/G Ratio) 1.0 0.7-1.6 [facility]2015-10-09 22:53:19 Test Item Value Reference Range Interpretation Comments B/C Ratio (test code = B/C Ratio) 13 6-25 [facility]2015-10-09 22:53:19 Test Item Value Reference Range Interpretation Comments Globulin (test code = Globulin) 3.6 2.0-4.0 [facility]2015-10-09 22:53:19 Test Item Value Reference Range Interpretation Comments Magnesium Lvl (test code = Magnesium 1.8 1.8-2.4 Lvl) [facility] CenterOdxgzvaNRYKGAOLVC4370-57-06 22:53:19 Test Item Value Reference Range Interpretation Comments Segs (test code = Segs) 57.5 45.0-75.0 [facility] CenterErmvqbwHKISYXNFWA7946-02-86 22:53:19 Test Item Value Reference Range Interpretation Comments Monocytes (test code = Monocytes) 7.6 2.0-12.0 [facility] CenterJlzthniZJRABXQAMB7753-73-50 22:53:19 Test Item Value Reference Range Interpretation Comments Basophils (test code = 1.0 See_Comment [Aut omated message] The Basophils) system which ge nerated this result tra nsmitted reference range : <=1.0. The reference r kat was not used to int erpret this result as normal/abnormal . [facility] CenterPppebkvSVMAFBXOAB2760-90-80 22:53:19 Test Item Value Reference Range Interpretation Comments Lymphocytes (test code = Lymphocytes) 32.9 20.0-40.0 [facility] CenterKvcbihtVSRWRCBRWF6527-88-81 22:53:19 Test Item Value Reference Range Interpretation Comments Eosinophils (test code = 1.0 See_Comment [A utomated message] The Eosinophils) system which ge nerated this result tra nsmitted reference range : <=4.0. The reference r kat was not used to int erpret this result as normal/abnormal . [facility] CenterDatlpmjNNKZSYTJLP7241-43-40 22:53:19 Test Item Value Reference Range Interpretation Comments Lymphocytes # (test code = Lymphocytes 3.8 1.0-5.5 #) [facility] CenterWunvjrwOUABYUSLRC5474-67-89 22:53:19 Test Item Value Reference Range Interpretation Comments Segs-Bands # (test code = Segs-Bands #) 6.6 1.5-8.1 [facility] CenterOhkgyphEEUMOROQMJ1318-43-41 22:53:19 Test Item Value Reference Range Interpretation Comments Eosinophils # (test code 0.1 See_Comment [A utomated message] The = Eosinophils #) system wh h generated this result tra nsmitted reference range : <=0.5. The reference r kat was not used to int erpret this result as normal/abnormal . [facility] CenterRfqmzmjIOMXSRBAUH7092-78-62 22:53:19 Test Item Value Reference Range Interpretation Comments Monocytes # (test code 0.9 See_Comment [Aut omated message] The = Monocytes #) system which generated this result tra nsmitted reference range : <=0.8. The reference r kat was not used to int erpret this result as normal/abnormal . [facility] CenterHifgaurGGYVBWPDLJ4284-35-32 22:53:19 Test Item Value Reference Range Interpretation Comments Microcyte (test code = 1+ *ABN*(06/07/15 Microcyte) 5:53 PM) [facility] CenterUhuvodqSGOTNALMAA4652-29-95 22:53:19 Test Item Value Reference Range Interpretation Comments Basophils # (test code 0.1 See_Comment [Aut omated message] The = Basophils #) system which generated this result tra nsmitted reference range : <=0.2. The reference r kat was not used to int erpret this result as normal/abnormal . [facility] CenterYkhghxcMGUXFSLWVW4763-22-20 22:53:19 Test Item Value Reference Range Interpretation Comments RBC (test code = RBC) 5.23 4.20-5.40 [facility] CenterQzczmecXZLUNPLQJI2451-56-32 22:53:19 Test Item Value Reference Range Interpretation Comments Platelet (test code = Platelet) 241 133-450 [facility] CenterRuujibnBQEXAJLKVM5692-35-63 22:53:19 Test Item Value Reference Range Interpretation Comments MPV (test code = MPV) 9.3 7.4-10.4 [facility] CenterBkibvevACZOVIMPAZ8638-13-50 22:53:19 Test Item Value Reference Range Interpretation Comments RDW (test code = RDW) 16.5 11.5-14.5 [facility] CenterJtxvwzdVTFBGTQLOH6494-84-92 22:53:19 Test Item Value Reference Range Interpretation Comments Hct (test code = Hct) 41.0 36.0-48.0 [facility] CenterZacbpawHRECFARRZO5530-93-12 22:53:19 Test Item Value Reference Range Interpretation Comments Hgb (test code = Hgb) 12.7 12.0-16.0 [facility] CenterIpxczuuEOJVIRYFDT3174-41-10 22:53:19 Test Item Value Reference Range Interpretation Comments WBC (test code = WBC) 11.5 3.7-10.4 [facility] CenterXkihgbpKIPOJOJZVW6430-05-75 22:53:19 Test Item Value Reference Range Interpretation Comments MCH (test code = MCH) 24.3 pg 27.0-31.0 [facility] CenterMpicbrgOHWZIVTKID1747-91-68 22:53:19 Test Item Value Reference Range Interpretation Comments MCHC (test code = MCHC) 31.0 32.0-36.0 [facility] CenterZgtlhizCSCGCBCUIT7065-07-55 22:53:19 Test Item Value Reference Range Interpretation Comments MCV (test code = MCV) 78.4 80.0-98.0 [facility] UKJCB1326[facility]72 22:53:19 Test Item Value Reference Range Interpretation Comments FTI (test code = FTI) 2.5 [facility] PUOSE6441-93-28 22:53:19 Test Item Value Reference Range Interpretation Comments TSH (test code = TSH) 1.540 0.360-3.740 [facility]TH[facility] CMHAZ9409-52-11 22:53:19 Test Item Value Reference Range Interpretation Comments T3 Uptake (test code = T3 Uptake) 31 31-39 [facility] RUDKU9031-28-15 22:53:19 Test Item Value Reference Range Interpretation Comments T4 (test code = T4) 8.0 4.7-13.3 [facility]2015-10-09 22:53:19 Test Item Value Reference Range Interpretation Comments Transferrin (test code = Transferrin) 256 212-360 [facility]2015-10-09 22:53:19 Test Item Value Reference Range Interpretation Comments Vitamin B12 Lvl (test code = Vitamin [id number] B12 Lvl) [facility]2015-10-09 22:53:19 Test Item Value Reference Range Interpretation Comments eGFR (test code = eGFR) 70 [facility]2015-10-09 22:53:19 Test Item Value Reference Range Interpretation Comments Glucose Lvl (test code = Glucose Lvl) 103 70-99 [facility]2015-10-09 22:53:19 Test Item Value Reference Range Interpretation Comments Albumin Lvl (test code = Albumin Lvl) 3.6 3.5-5.0 [facility]2015-10-09 22:53:19 Test Item Value Reference Range Interpretation Comments CO2 (test code = CO2) 24 24-32 [facility]2015-10-09 22:53:19 Test Item Value Reference Range Interpretation Comments Total Protein (test code = Total 7.2 6.4-8.4 Protein) [facility]2015-10-09 22:53:19 Test Item Value Reference Range Interpretation Comments Creatinine Lvl (test code = Creatinine 1.1 0.5-1.4 Lvl) [facility]2015-10-09 22:53:19 Test Item Value Reference Range Interpretation Comments BUN (test code = BUN) 14 7-22 [place] 610125-10-09 22:53:19 Test Item Value Reference Range Interpretation Comments AST (test code = AST) 12 See_Comment [Auto mated message] The system which ge nerated this result transmit arvind reference range : <=37. The reference range was not used to interpr et this result as mario l/abnormal. [facility]2015-10-09 22:53:19 Test Item Value Reference Range Interpretation Comments ALT (test code = ALT) 41 See_Comment [Auto mated message] The system which ge nerated this result transmit arvind reference range : <=65. The reference range was not used to interpr et this result as mario l/abnormal. [facility]2015-10-09 22:53:19 Test Item Value Reference Range Interpretation Comments Alk Phos (test code = Alk Phos) 100 39-136 [facility]2015-10-09 22:53:19 Test Item Value Reference Range Interpretation Comments Bili Total (test code = Bili Total) 0.2 0.2-1.3 [facility]2015-10-09 22:53:19 Test Item Value Reference Range Interpretation Comments Potassium Lvl (test code = Potassium 3.9 3.5-5.1 Lvl) [facility]2015-10-09 22:53:19 Test Item Value Reference Range Interpretation Comments Sodium Lvl (test code = Sodium Lvl) 141 135-145 [facility]2015-10-09 22:53:19 Test Item Value Reference Range Interpretation Comments Calcium Lvl (test code = Calcium Lvl) 9.0 8.5-10.5 [facility]2015-10-09 22:53:19 Test Item Value Reference Range Interpretation Comments Chloride Lvl (test code = Chloride Lvl) 109 95-109 [facility]2015-10-09 22:53:19 Test Item Value Reference Range Interpretation Comments AGAP (test code = AGAP) 11.9 10.0-20.0 [facility]2015-10-09 22:53:19 Test Item Value Reference Range Interpretation Comments A/G Ratio (test code = A/G Ratio) 1.0 0.7-1.6 [facility]2015-10-09 22:53:19 Test Item Value Reference Range Interpretation Comments B/C Ratio (test code = B/C Ratio) 13 6-25 [facility]2015-10-09 22:53:19 Test Item Value Reference Range Interpretation Comments Globulin (test code = Globulin) 3.6 2.0-4.0 [facility]2015-10-09 22:53:19 Test Item Value Reference Range Interpretation Comments Magnesium Lvl (test code = Magnesium 1.8 1.8-2.4 Lvl) [facility] CenterCniypooAEUVRRSHGP4103-84-06 22:53:19 Test Item Value Reference Range Interpretation Comments Segs (test code = Segs) 57.5 45.0-75.0 [facility] CenterJkhtgjkSRXYFEOARW6082-39-12 22:53:19 Test Item Value Reference Range Interpretation Comments Monocytes (test code = Monocytes) 7.6 2.0-12.0 [facility] CenterHhhtemxEBGGDILYAG5028-41-46 22:53:19 Test Item Value Reference Range Interpretation Comments Basophils (test code = 1.0 See_Comment [Aut omated message] The Basophils) system which ge nerated this result tra nsmitted reference range : <=1.0. The reference r kat was not used to int erpret this result as normal/abnormal . [facility] CenterLebcxtgEDOMIHCQNA7623-88-33 22:53:19 Test Item Value Reference Range Interpretation Comments Lymphocytes (test code = Lymphocytes) 32.9 20.0-40.0 [facility] CenterLbfnexmELNJWQBSQU2563-97-09 22:53:19 Test Item Value Reference Range Interpretation Comments Eosinophils (test code = 1.0 See_Comment [A utomated message] The Eosinophils) system which ge nerated this result tra nsmitted reference range : <=4.0. The reference r kat was not used to int erpret this result as normal/abnormal . [facility] CenterPdurmgiCGSIDCAGBN5629-19-49 22:53:19 Test Item Value Reference Range Interpretation Comments Lymphocytes # (test code = Lymphocytes 3.8 1.0-5.5 #) [facility] CenterUaqtwolVZGLSSSJAY0156-65-30 22:53:19 Test Item Value Reference Range Interpretation Comments Segs-Bands # (test code = Segs-Bands #) 6.6 1.5-8.1 [facility] CenterMuwbdclQNBVJKJFNV8088-81-58 22:53:19 Test Item Value Reference Range Interpretation Comments Eosinophils # (test code 0.1 See_Comment [A utomated message] The = Eosinophils #) system whic h generated this result tra nsmitted reference range : <=0.5. The reference r kat was not used to int erpret this result as normal/abnormal . [facility] CenterLonyuzsVIHNWBQKVF5448-74-73 22:53:19 Test Item Value Reference Range Interpretation Comments Monocytes # (test code 0.9 See_Comment [Aut omated message] The = Monocytes #) system which generated this result tra nsmitted reference range : <=0.8. The reference r kat was not used to int erpret this result as normal/abnormal . [facility] CenterGzmabtxAFNOHHLMLH9655-14-29 22:53:19 Test Item Value Reference Range Interpretation Comments Microcyte (test code = 1+ *ABN*(06/07/15 Microcyte) 5:53 PM) [facility] CenterBckcrkpERQOJPCNJW9157-64-81 22:53:19 Test Item Value Reference Range Interpretation Comments Basophils # (test code 0.1 See_Comment [Aut omated message] The = Basophils #) system which generated this result tra nsmitted reference range : <=0.2. The reference r kat was not used to int erpret this result as normal/abnormal . [facility] CenterMgyojyfSIHPIVNJXV6546-57-43 22:53:19 Test Item Value Reference Range Interpretation Comments RBC (test code = RBC) 5.23 4.20-5.40 [facility] CenterEzcgnevUAKCCMGIBM3286-22-07 22:53:19 Test Item Value Reference Range Interpretation Comments Platelet (test code = Platelet) 241 133-450 [facility] CenterAvxcdrlGTEXCQUHMD8735-76-76 22:53:19 Test Item Value Reference Range Interpretation Comments MPV (test code = MPV) 9.3 7.4-10.4 [facility] CenterZgzzjceXSSENREEMN6391-08-57 22:53:19 Test Item Value Reference Range Interpretation Comments RDW (test code = RDW) 16.5 11.5-14.5 [facility] CenterRzhrymiMJDHNMNBHT4426-79-66 22:53:19 Test Item Value Reference Range Interpretation Comments Hct (test code = Hct) 41.0 36.0-48.0 [facility] CenterCyrqazhZGOUGWSGGM3066-74-50 22:53:19 Test Item Value Reference Range Interpretation Comments Hgb (test code = Hgb) 12.7 12.0-16.0 [facility] CenterPydbexzIOBIFWUJZI2577-51-51 22:53:19 Test Item Value Reference Range Interpretation Comments WBC (test code = WBC) 11.5 3.7-10.4 [facility] CenterOefxuvgNMLKBIBBGO8964-93-56 22:53:19 Test Item Value Reference Range Interpretation Comments MCH (test code = MCH) 24.3 pg 27.0-31.0 [facility] CenterVkdqxcpWDXIMSVLVM7545-51-73 22:53:19 Test Item Value Reference Range Interpretation Comments MCHC (test code = MCHC) 31.0 32.0-36.0 [facility] CenterOcsfmvuBQKQAHTDIK7965-57-97 22:53:19 Test Item Value Reference Range Interpretation Comments MCV (test code = MCV) 78.4 80.0-98.0 [facility]2015-10-09 22:53:19 Test Item Value Reference Range Interpretation Comments FTI (test code = FTI) 2.5 [facility]2015-10-09 22:53:19 Test Item Value Reference Range Interpretation Comments TSH (test code = TSH) 1.540 0.360-3.740 [facility]2015-10-09 22:53:19 Test Item Value Reference Range Interpretation Comments T3 Uptake (test code = T3 Uptake) 31 31-39 [facility]2015-10-09 22:53:19 Test Item Value Reference Range Interpretation Comments T4 (test code = T4) 8.0 4.7-13.3 [facility]2015-10-09 22:53:19 Test Item Value Reference Range Interpretation Comments Transferrin (test code = Transferrin) 256 212-360 [facility]2015-10-09 22:53:19 Test Item Value Reference Range Interpretation Comments Vitamin B12 Lvl (test code = Vitamin [phone] B12 Lvl) [facility]2015-10-09 22:53:19 Test Item Value Reference Range Interpretation Comments eGFR (test code = eGFR) 70 [facility]2015-10-09 22:53:19 Test Item Value Reference Range Interpretation Comments Glucose Lvl (test code = Glucose Lvl) 103 70-99 [facility]2015-10-09 22:53:19 Test Item Value Reference Range Interpretation Comments Albumin Lvl (test code = Albumin Lvl) 3.6 3.5-5.0 [facility]2015-10-09 22:53:19 Test Item Value Reference Range Interpretation Comments CO2 (test code = CO2) 24 24-32 [facility]2015-10-09 22:53:19 Test Item Value Reference Range Interpretation Comments Total Protein (test code = Total 7.2 6.4-8.4 Protein) [facility]2015-10-09 22:53:19 Test Item Value Reference Range Interpretation Comments Creatinine Lvl (test code = Creatinine 1.1 0.5-1.4 Lvl) [facility]2015-10-09 22:53:19 Test Item Value Reference Range Interpretation Comments BUN (test code = BUN) 14 7-22 [facility]2015-10-09 22:53:19 Test Item Value Reference Range Interpretation Comments AST (test code = AST) 12 See_Comment [Auto mated message] The system which ge nerated this result transmit avrind reference range : <=37. The reference range was not used to interpr et this result as mario l/abnormal. [facility]2015-10-09 22:53:19 Test Item Value Reference Range Interpretation Comments ALT (test code = ALT) 41 See_Comment [Auto mated message] The system which ge nerated this result transmit arvind reference range : <=65. The reference range was not used to interpr et this result as mario l/abnormal. [facility]2015-10-09 22:53:19 Test Item Value Reference Range Interpretation Comments Alk Phos (test code = Alk Phos) 100 39-136 [facility]2015-10-09 22:53:19 Test Item Value Reference Range Interpretation Comments Bili Total (test code = Bili Total) 0.2 0.2-1.3 [facility]2015-10-09 22:53:19 Test Item Value Reference Range Interpretation Comments Potassium Lvl (test code = Potassium 3.9 3.5-5.1 Lvl) [facility]2015-10-09 22:53:19 Test Item Value Reference Range Interpretation Comments Sodium Lvl (test code = Sodium Lvl) 141 135-145 [facility]2015-10-09 22:53:19 Test Item Value Reference Range Interpretation Comments Calcium Lvl (test code = Calcium Lvl) 9.0 8.5-10.5 [facility]2015-10-09 22:53:19 Test Item Value Reference Range Interpretation Comments Chloride Lvl (test code = Chloride Lvl) 109 95-109 [facility]2015-10-09 22:53:19 Test Item Value Reference Range Interpretation Comments AGAP (test code = AGAP) 11.9 10.0-20.0 [facility]2015-10-09 22:53:19 Test Item Value Reference Range Interpretation Comments A/G Ratio (test code = A/G Ratio) 1.0 0.7-1.6 [facility]2015-10-09 22:53:19 Test Item Value Reference Range Interpretation Comments B/C Ratio (test code = B/C Ratio) 13 6-25 [facility]2015-10-09 22:53:19 Test Item Value Reference Range Interpretation Comments Globulin (test code = Globulin) 3.6 2.0-4.0 [facility]2015-10-09 22:53:19 Test Item Value Reference Range Interpretation Comments Magnesium Lvl (test code = Magnesium 1.8 1.8-2.4 Lvl) [facility]UdzjkklIGQCDDNVZE8540-60-54 22:53:19 Test Item Value Reference Range Interpretation Comments Segs (test code = Segs) 57.5 45.0-75.0 [facility] CenterSucchjtWTATLSOMNE9154-99-07 22:53:19 Test Item Value Reference Range Interpretation Comments Monocytes (test code = Monocytes) 7.6 2.0-12.0 [facility] CenterTijlksjNUGWBKPMPI1829-30-01 22:53:19 Test Item Value Reference Range Interpretation Comments Basophils (test code = 1.0 See_Comment [Aut omated message] The Basophils) system which ge nerated this result tra nsmitted reference range : <=1.0. The reference r kat was not used to int erpret this result as normal/abnormal . [facility] CenterBimxikkNHFRQVXZXD5879-67-57 22:53:19 Test Item Value Reference Range Interpretation Comments Lymphocytes (test code = Lymphocytes) 32.9 20.0-40.0 [facility] CenterPppcanvFXSYFEWEAZ0837-76-75 22:53:19 Test Item Value Reference Range Interpretation Comments Eosinophils (test code = 1.0 See_Comment [A utomated message] The Eosinophils) system which ge nerated this result tra nsmitted reference range : <=4.0. The reference r kat was not used to int erpret this result as normal/abnormal . [facility] CenterIzwfunuCECGCRTFBI7998-30-26 22:53:19 Test Item Value Reference Range Interpretation Comments Lymphocytes # (test code = Lymphocytes 3.8 1.0-5.5 #) [facility] CenterUnrxgpqANHMUXRJGT7748-99-76 22:53:19 Test Item Value Reference Range Interpretation Comments Segs-Bands # (test code = Segs-Bands #) 6.6 1.5-8.1 [facility] CenterOqpjzfrXRWQFTTOJJ8869-10-20 22:53:19 Test Item Value Reference Range Interpretation Comments Eosinophils # (test code 0.1 See_Comment [A utomated message] The = Eosinophils #) system whic h generated this result tra nsmitted reference range : <=0.5. The reference r kat was not used to int erpret this result as normal/abnormal . [facility] CenterRxdlgnmZPJBMUSVET3640-12-46 22:53:19 Test Item Value Reference Range Interpretation Comments Monocytes # (test code 0.9 See_Comment [Aut omated message] The = Monocytes #) system which generated this result tra nsmitted reference range : <=0.8. The reference r kat was not used to int erpret this result as normal/abnormal . [facility] CenterHqffwtbKKVWCEGOVJ8961-76-33 22:53:19 Test Item Value Reference Range Interpretation Comments Microcyte (test code = 1+ *ABN*(06/07/15 Microcyte) 5:53 PM) [facility] CenterYsheoxvGKZIKQHBHN9524-32-04 22:53:19 Test Item Value Reference Range Interpretation Comments Basophils # (test code 0.1 See_Comment [Aut omated message] The = Basophils #) system which generated this result tra nsmitted reference range : <=0.2. The reference r kat was not used to int erpret this result as normal/abnormal . [facility] CenterDpquamrIPJAPDFYWS8344-62-53 22:53:19 Test Item Value Reference Range Interpretation Comments RBC (test code = RBC) 5.23 4.20-5.40 [facility] CenterFoqpapfXPJSEHCRZR5613-73-11 22:53:19 Test Item Value Reference Range Interpretation Comments Platelet (test code = Platelet) 241 133-450 [facility] CenterSgnarpvKOREXRXVPZ9211-69-22 22:53:19 Test Item Value Reference Range Interpretation Comments MPV (test code = MPV) 9.3 7.4-10.4 [facility] CenterOsrqhmtVHLVHJMJPC5261-56-90 22:53:19 Test Item Value Reference Range Interpretation Comments RDW (test code = RDW) 16.5 11.5-14.5 [facility] CenterOsvewcbBOYGNTJGBW5810-79-24 22:53:19 Test Item Value Reference Range Interpretation Comments Hct (test code = Hct) 41.0 36.0-48.0 [facility] CenterFnkkhinTZXLENKRVM2047-29-69 22:53:19 Test Item Value Reference Range Interpretation Comments Hgb (test code = Hgb) 12.7 12.0-16.0 [facility] CenterAugbaqmDWRQYIOMZZ0162-56-04 22:53:19 Test Item Value Reference Range Interpretation Comments WBC (test code = WBC) 11.5 3.7-10.4 [facility] CenterTxdlzsyRNMBQXCIDM7538-38-50 22:53:19 Test Item Value Reference Range Interpretation Comments MCH (test code = MCH) 24.3 pg 27.0-31.0 [facility] CenterYwyxnwcMGXDAWGSFF1331-86-75 22:53:19 Test Item Value Reference Range Interpretation Comments MCHC (test code = MCHC) 31.0 32.0-36.0 [facility] CenterCgsqqgkPNEQDQYGHM5755-92-18 22:53:19 Test Item Value Reference Range Interpretation Comments MCV (test code = MCV) 78.4 80.0-98.0 [facility] CXHRG6524[facility] 22:53:19 Test Item Value Reference Range Interpretation Comments FTI (test code = FTI) 2.5 [facility]2015-10-09 22:53:19 Test Item Value Reference Range Interpretation Comments TSH (test code = TSH) 1.540 0.360-3.740 [facility]2015-10-09 22:53:19 Test Item Value Reference Range Interpretation Comments T3 Uptake (test code = T3 Uptake) 31 31-39 [facility]][id number] 22:53:19 Test Item Value Reference Range Interpretation Comments T4 (test code = T4) 8.0 4.7-13.3 [facility]2015-10-09 22:53:19 Test Item Value Reference Range Interpretation Comments Transferrin (test code = Transferrin) 256 212-360 [facility]2015-10-09 22:53:19 Test Item Value Reference Range Interpretation Comments Vitamin B12 Lvl (test code = Vitamin [phone] B12 Lvl) [facility]2015-10-09 22:53:19 Test Item Value Reference Range Interpretation Comments eGFR (test code = eGFR) 70 [facility]2015-10-09 22:53:19 Test Item Value Reference Range Interpretation Comments Glucose Lvl (test code = Glucose Lvl) 103 70-99 [facility]2015-10-09 22:53:19 Test Item Value Reference Range Interpretation Comments Albumin Lvl (test code = Albumin Lvl) 3.6 3.5-5.0 [facility]2015-10-09 22:53:19 Test Item Value Reference Range Interpretation Comments CO2 (test code = CO2) 24 24-32 [facility]2015-10-09 22:53:19 Test Item Value Reference Range Interpretation Comments Total Protein (test code = Total 7.2 6.4-8.4 Protein) [facility]2015-10-09 22:53:19 Test Item Value Reference Range Interpretation Comments Creatinine Lvl (test code = Creatinine 1.1 0.5-1.4 Lvl) [facility]2015-10-09 22:53:19 Test Item Value Reference Range Interpretation Comments BUN (test code = BUN) 14 7-22 [facility]2015-10-09 22:53:19 Test Item Value Reference Range Interpretation Comments AST (test code = AST) 12 See_Comment [Auto mated message] The system which ge nerated this result transmit arvind reference range : <=37. The reference range was not used to interpr et this result as mario l/abnormal. [facility]2015-10-09 22:53:19 Test Item Value Reference Range Interpretation Comments ALT (test code = ALT) 41 See_Comment [Auto mated message] The system which ge nerated this result transmit arvind reference range : <=65. The reference range was not used to interpr et this result as mario l/abnormal. [facility]2015-10-09 22:53:19 Test Item Value Reference Range Interpretation Comments Alk Phos (test code = Alk Phos) 100 39-136 [facility]2015-10-09 22:53:19 Test Item Value Reference Range Interpretation Comments Bili Total (test code = Bili Total) 0.2 0.2-1.3 [facility]2015-10-09 22:53:19 Test Item Value Reference Range Interpretation Comments Potassium Lvl (test code = Potassium 3.9 3.5-5.1 Lvl) [place] 610125-10-09 22:53:19 Test Item Value Reference Range Interpretation Comments Sodium Lvl (test code = Sodium Lvl) 141 135-145 [facility]2015-10-09 22:53:19 Test Item Value Reference Range Interpretation Comments Calcium Lvl (test code = Calcium Lvl) 9.0 8.5-10.5 [facility]2015-10-09 22:53:19 Test Item Value Reference Range Interpretation Comments Chloride Lvl (test code = Chloride Lvl) 109 95-109 [facility]2015-10-09 22:53:19 Test Item Value Reference Range Interpretation Comments AGAP (test code = AGAP) 11.9 10.0-20.0 [facility]2015-10-09 22:53:19 Test Item Value Reference Range Interpretation Comments A/G Ratio (test code = A/G Ratio) 1.0 0.7-1.6 [facility]2015-10-09 22:53:19 Test Item Value Reference Range Interpretation Comments B/C Ratio (test code = B/C Ratio) 13 6-25 [facility]2015-10-09 22:53:19 Test Item Value Reference Range Interpretation Comments Globulin (test code = Globulin) 3.6 2.0-4.0 [facility]2015-10-09 22:53:19 Test Item Value Reference Range Interpretation Comments Magnesium Lvl (test code = Magnesium 1.8 1.8-2.4 Lvl) [facility] CenterSmvjrooIFYZVHMQQA3931-95-12 22:53:19 Test Item Value Reference Range Interpretation Comments Segs (test code = Segs) 57.5 45.0-75.0 [facility] CenterUlnzzaqLGSXWSZWRX4154-06-07 22:53:19 Test Item Value Reference Range Interpretation Comments Monocytes (test code = Monocytes) 7.6 2.0-12.0 [facility] CenterWkwqdojOYWZKYJKZO1819-68-62 22:53:19 Test Item Value Reference Range Interpretation Comments Basophils (test code = 1.0 See_Comment [Aut omated message] The Basophils) system which ge nerated this result tra nsmitted reference range : <=1.0. The reference r kat was not used to int erpret this result as normal/abnormal . [facility] CenterBfcuhveMOFPALPBLE9468-00-18 22:53:19 Test Item Value Reference Range Interpretation Comments Lymphocytes (test code = Lymphocytes) 32.9 20.0-40.0 [facility] CenterQwbquvuNIVUIAEKKI9809-64-83 22:53:19 Test Item Value Reference Range Interpretation Comments Eosinophils (test code = 1.0 See_Comment [A utomated message] The Eosinophils) system which ge nerated this result tra nsmitted reference range : <=4.0. The reference r kat was not used to int erpret this result as normal/abnormal . [facility] CenterGwpwvnnMVEKSRXDJZ0780-05-17 22:53:19 Test Item Value Reference Range Interpretation Comments Lymphocytes # (test code = Lymphocytes 3.8 1.0-5.5 #) [facility] CenterDhfbcosMLXGIIMGFI3181-37-36 22:53:19 Test Item Value Reference Range Interpretation Comments Segs-Bands # (test code = Segs-Bands #) 6.6 1.5-8.1 [facility] CenterQpxkmckFQELVCLMJE2525-50-48 22:53:19 Test Item Value Reference Range Interpretation Comments Eosinophils # (test code 0.1 See_Comment [A utomated message] The = Eosinophils #) system wh h generated this result tra nsmitted reference range : <=0.5. The reference r kat was not used to int erpret this result as normal/abnormal . [facility] CenterAeninviTXYBIULXBD2919-54-50 22:53:19 Test Item Value Reference Range Interpretation Comments Monocytes # (test code 0.9 See_Comment [Aut omated message] The = Monocytes #) system which generated this result tra nsmitted reference range : <=0.8. The reference r kat was not used to int erpret this result as normal/abnormal . [facility] CenterVylrkuwNEVENLNIRF2273-82-69 22:53:19 Test Item Value Reference Range Interpretation Comments Microcyte (test code = 1+ *ABN*(06/07/15 Microcyte) 5:53 PM) [facility] CenterTssrlfbOCTTNPZXRB5397-33-31 22:53:19 Test Item Value Reference Range Interpretation Comments Basophils # (test code 0.1 See_Comment [Aut omated message] The = Basophils #) system which generated this result tra nsmitted reference range : <=0.2. The reference r kat was not used to int erpret this result as normal/abnormal . [facility] CenterKsgxbdpKSMFOEHXTV6162-88-88 22:53:19 Test Item Value Reference Range Interpretation Comments RBC (test code = RBC) 5.23 4.20-5.40 [facility] CenterYgqnvnkXXHVVGAGPJ3162-56-66 22:53:19 Test Item Value Reference Range Interpretation Comments Platelet (test code = Platelet) 241 133-450 [facility] CenterYfajgksBUOKISGAVQ9232-99-18 22:53:19 Test Item Value Reference Range Interpretation Comments MPV (test code = MPV) 9.3 7.4-10.4 [facility] CenterZcahbgtDPZUNAVPHO3836-52-79 22:53:19 Test Item Value Reference Range Interpretation Comments RDW (test code = RDW) 16.5 11.5-14.5 [facility] CenterSueqjlgLUHLPRVTZM0361-78-80 22:53:19 Test Item Value Reference Range Interpretation Comments Hct (test code = Hct) 41.0 36.0-48.0 [facility] CenterSbkotljISZIWBSWBW8930-65-52 22:53:19 Test Item Value Reference Range Interpretation Comments Hgb (test code = Hgb) 12.7 12.0-16.0 [facility] CenterHytxcomQDXCXUNSDO7887-79-41 22:53:19 Test Item Value Reference Range Interpretation Comments WBC (test code = WBC) 11.5 3.7-10.4 [facility] CenterXvottrjSQZOKBVYFR6641-68-40 22:53:19 Test Item Value Reference Range Interpretation Comments MCH (test code = MCH) 24.3 pg 27.0-31.0 [facility] CenterQtuzxywAURCHWTLMU5890-05-14 22:53:19 Test Item Value Reference Range Interpretation Comments MCHC (test code = MCHC) 31.0 32.0-36.0 [facility] CenterRzqhnwmBQPUPTQNMR1485-36-25 22:53:19 Test Item Value Reference Range Interpretation Comments MCV (test code = MCV) 78.4 80.0-98.0 [facility] HFOUS4490-81-34 22:53:19 Test Item Value Reference Range Interpretation Comments FTI (test code = FTI) 2.5 [facility] [id number] 22:53:19 Test Item Value Reference Range Interpretation Comments TSH (test code = TSH) 1.540 0.360-3.740 [facility]TH[facility] HLLUT0241-95-04 22:53:19 Test Item Value Reference Range Interpretation Comments T3 Uptake (test code = T3 Uptake) 31 31-39 [facility]TH[facility] WZKNU0053-06-77 22:53:19 Test Item Value Reference Range Interpretation Comments T4 (test code = T4) 8.0 4.7-13.3 [facility]2015-10-09 22:53:19 Test Item Value Reference Range Interpretation Comments Transferrin (test code = Transferrin) 256 212-360 [facility]2015-10-09 22:53:19 Test Item Value Reference Range Interpretation Comments Vitamin B12 Lvl (test code = Vitamin [phone] B12 Lvl) [facility]2015-10-09 22:53:19 Test Item Value Reference Range Interpretation Comments eGFR (test code = eGFR) 70 [facility]2015-10-09 22:53:19 Test Item Value Reference Range Interpretation Comments Glucose Lvl (test code = Glucose Lvl) 103 70-99 [facility]2015-10-09 22:53:19 Test Item Value Reference Range Interpretation Comments Albumin Lvl (test code = Albumin Lvl) 3.6 3.5-5.0 [facility]2015-10-09 22:53:19 Test Item Value Reference Range Interpretation Comments CO2 (test code = CO2) 24 24-32 [facility]2015-10-09 22:53:19 Test Item Value Reference Range Interpretation Comments Total Protein (test code = Total 7.2 6.4-8.4 Protein) [facility]2015-10-09 22:53:19 Test Item Value Reference Range Interpretation Comments Creatinine Lvl (test code = Creatinine 1.1 0.5-1.4 Lvl) [facility]2015-10-09 22:53:19 Test Item Value Reference Range Interpretation Comments BUN (test code = BUN) 14 7-22 [facility]2015-10-09 22:53:19 Test Item Value Reference Range Interpretation Comments AST (test code = AST) 12 See_Comment [Auto mated message] The system which ge nerated this result transmit arvind reference range : <=37. The reference range was not used to interpr et this result as mario l/abnormal. [facility]2015-10-09 22:53:19 Test Item Value Reference Range Interpretation Comments ALT (test code = ALT) 41 See_Comment [Auto mated message] The system which ge nerated this result transmit arvind reference range : <=65. The reference range was not used to interpr et this result as mario l/abnormal. [facility]2015-10-09 22:53:19 Test Item Value Reference Range Interpretation Comments Alk Phos (test code = Alk Phos) 100 39-136 [facility]2015-10-09 22:53:19 Test Item Value Reference Range Interpretation Comments Bili Total (test code = Bili Total) 0.2 0.2-1.3 [facility]2015-10-09 22:53:19 Test Item Value Reference Range Interpretation Comments Potassium Lvl (test code = Potassium 3.9 3.5-5.1 Lvl) [facility]2015-10-09 22:53:19 Test Item Value Reference Range Interpretation Comments Sodium Lvl (test code = Sodium Lvl) 141 135-145 [facility]2015-10-09 22:53:19 Test Item Value Reference Range Interpretation Comments Calcium Lvl (test code = Calcium Lvl) 9.0 8.5-10.5 [facility]2015-10-09 22:53:19 Test Item Value Reference Range Interpretation Comments Chloride Lvl (test code = Chloride Lvl) 109 95-109 [facility]2015-10-09 22:53:19 Test Item Value Reference Range Interpretation Comments AGAP (test code = AGAP) 11.9 10.0-20.0 [facility]2015-10-09 22:53:19 Test Item Value Reference Range Interpretation Comments A/G Ratio (test code = A/G Ratio) 1.0 0.7-1.6 [facility]2015-10-09 22:53:19 Test Item Value Reference Range Interpretation Comments B/C Ratio (test code = B/C Ratio) 13 6-25 [facility]2015-10-09 22:53:19 Test Item Value Reference Range Interpretation Comments Globulin (test code = Globulin) 3.6 2.0-4.0 [facility]2015-10-09 22:53:19 Test Item Value Reference Range Interpretation Comments Transferrin (test code = Transferrin) 256 212-360 [facility] [id number] 22:53:19 Test Item Value Reference Range Interpretation Comments Vitamin B12 Lvl (test code = Vitamin [phone] B12 Lvl) [facility]2015-10-09 22:53:19 Test Item Value Reference Range Interpretation Comments eGFR (test code = eGFR) 70 [facility]2015-10-09 22:53:19 Test Item Value Reference Range Interpretation Comments Glucose Lvl (test code = Glucose Lvl) 103 70-99 [facility]2015-10-09 22:53:19 Test Item Value Reference Range Interpretation Comments Albumin Lvl (test code = Albumin Lvl) 3.6 3.5-5.0 [facility]2015-10-09 22:53:19 Test Item Value Reference Range Interpretation Comments CO2 (test code = CO2) 24 24-32 [facility]2015-10-09 22:53:19 Test Item Value Reference Range Interpretation Comments Total Protein (test code = Total 7.2 6.4-8.4 Protein) [facility] [facility]2015-10-09 22:53:19 Test Item Value Reference Range Interpretation Comments Creatinine Lvl (test code = Creatinine 1.1 0.5-1.4 Lvl) [facility]2015-10-09 22:53:19 Test Item Value Reference Range Interpretation Comments BUN (test code = BUN) 14 7-22 [facility]2015-10-09 22:53:19 Test Item Value Reference Range Interpretation Comments Magnesium Lvl (test code = Magnesium 1.8 1.8-2.4 Lvl) [facility]2015-10-09 22:53:19 Test Item Value Reference Range Interpretation Comments AST (test code = AST) 12 See_Comment [Auto mated message] The system which ge nerated this result transmit arvind reference range : <=37. The reference range was not used to interpr et this result as mario l/abnormal. [facility]2015-10-09 22:53:19 Test Item Value Reference Range Interpretation Comments ALT (test code = ALT) 41 See_Comment [Auto mated message] The system which ge nerated this result transmit arvind reference range : <=65. The reference range was not used to interpr et this result as mario l/abnormal. [facility]2015-10-09 22:53:19 Test Item Value Reference Range Interpretation Comments Alk Phos (test code = Alk Phos) 100 39-136 [facility]2015-10-09 22:53:19 Test Item Value Reference Range Interpretation Comments Bili Total (test code = Bili Total) 0.2 0.2-1.3 [facility]2015-10-09 22:53:19 Test Item Value Reference Range Interpretation Comments Potassium Lvl (test code = Potassium 3.9 3.5-5.1 Lvl) [facility]2015-10-09 22:53:19 Test Item Value Reference Range Interpretation Comments Sodium Lvl (test code = Sodium Lvl) 141 135-145 [facility]2015-10-09 22:53:19 Test Item Value Reference Range Interpretation Comments Calcium Lvl (test code = Calcium Lvl) 9.0 8.5-10.5 [facility]2015-10-09 22:53:19 Test Item Value Reference Range Interpretation Comments Chloride Lvl (test code = Chloride Lvl) 109 95-109 [facility]2015-10-09 22:53:19 Test Item Value Reference Range Interpretation Comments AGAP (test code = AGAP) 11.9 10.0-20.0 [facility]2015-10-09 22:53:19 Test Item Value Reference Range Interpretation Comments A/G Ratio (test code = A/G Ratio) 1.0 0.7-1.6 [facility] CenterXyzeblsZPKSLXAYLO0783-55-74 22:53:19 Test Item Value Reference Range Interpretation Comments Segs (test code = Segs) 57.5 45.0-75.0 [facility]2015-10-09 22:53:19 Test Item Value Reference Range Interpretation Comments B/C Ratio (test code = B/C Ratio) 13 6-25 [facility]2015-10-09 22:53:19 Test Item Value Reference Range Interpretation Comments Globulin (test code = Globulin) 3.6 2.0-4.0 [facility]2015-10-09 22:53:19 Test Item Value Reference Range Interpretation Comments Magnesium Lvl (test code = Magnesium 1.8 1.8-2.4 Lvl) [facility] CenterRzlwfjuDXEFFMBKEP3437-12-27 22:53:19 Test Item Value Reference Range Interpretation Comments Segs (test code = Segs) 57.5 45.0-75.0 [facility] CenterFrwybftUHSESSQSGA5686-76-80 22:53:19 Test Item Value Reference Range Interpretation Comments Monocytes (test code = Monocytes) 7.6 2.0-12.0 [facility] CenterDznijgzKBKGFLZOZJ2318-01-37 22:53:19 Test Item Value Reference Range Interpretation Comments Basophils (test code = 1.0 See_Comment [Aut omated message] The Basophils) system which ge nerated this result tra nsmitted reference range : <=1.0. The reference r kat was not used to int erpret this result as normal/abnormal . [facility] CenterJvzgewjUEKIOLFROS5446-39-03 22:53:19 Test Item Value Reference Range Interpretation Comments Lymphocytes (test code = Lymphocytes) 32.9 20.0-40.0 [facility] CenterGwbemvdDUTCUCRNBZ3519-53-64 22:53:19 Test Item Value Reference Range Interpretation Comments Eosinophils (test code = 1.0 See_Comment [A utomated message] The Eosinophils) system which ge nerated this result tra nsmitted reference range : <=4.0. The reference r kat was not used to int erpret this result as normal/abnormal . [facility] CenterDksgzszWLVASWOZRS5033-85-39 22:53:19 Test Item Value Reference Range Interpretation Comments Lymphocytes # (test code = Lymphocytes 3.8 1.0-5.5 #) [facility] CenterCdludcmVYKMMCQFOX1539-17-41 22:53:19 Test Item Value Reference Range Interpretation Comments Segs-Bands # (test code = Segs-Bands #) 6.6 1.5-8.1 [facility] CenterRvqrknzUNPVRDYHKP4622-97-89 22:53:19 Test Item Value Reference Range Interpretation Comments Monocytes (test code = Monocytes) 7.6 2.0-12.0 [facility] CenterCzkuvfxQGLJFNAVCV7605-59-67 22:53:19 Test Item Value Reference Range Interpretation Comments Eosinophils # (test code 0.1 See_Comment [A utomated message] The = Eosinophils #) system whic h generated this result tra nsmitted reference range : <=0.5. The reference r kat was not used to int erpret this result as normal/abnormal . [facility] CenterCgwhcnnKFNEBUSNDL3556-76-58 22:53:19 Test Item Value Reference Range Interpretation Comments Monocytes # (test code 0.9 See_Comment [Aut omated message] The = Monocytes #) system which generated this result tra nsmitted reference range : <=0.8. The reference r kat was not used to int erpret this result as normal/abnormal . [facility] CenterBjnkwjoNJBKXWBUFU6381-32-15 22:53:19 Test Item Value Reference Range Interpretation Comments Microcyte (test code = 1+ *ABN*(06/07/15 Microcyte) 5:53 PM) [facility] CenterSgxewbrMCYYTYOWGG3942-33-88 22:53:19 Test Item Value Reference Range Interpretation Comments Basophils # (test code 0.1 See_Comment [Aut omated message] The = Basophils #) system which generated this result tra nsmitted reference range : <=0.2. The reference r kat was not used to int erpret this result as normal/abnormal . [facility] CenterHzfblswCLKZWMQIOB4710-72-80 22:53:19 Test Item Value Reference Range Interpretation Comments RBC (test code = RBC) 5.23 4.20-5.40 [facility] CenterTdyoixlRUNELLTDAW6865-37-21 22:53:19 Test Item Value Reference Range Interpretation Comments Platelet (test code = Platelet) 241 133-450 [facility] CenterWijtpyzPLQZOQIWDE7058-28-03 22:53:19 Test Item Value Reference Range Interpretation Comments MPV (test code = MPV) 9.3 7.4-10.4 [facility] CenterZifdldoHZSPYEYBKP3909-32-64 22:53:19 Test Item Value Reference Range Interpretation Comments RDW (test code = RDW) 16.5 11.5-14.5 [facility] CenterKmxnawiGLGJJDCWXP1795-67-06 22:53:19 Test Item Value Reference Range Interpretation Comments Hct (test code = Hct) 41.0 36.0-48.0 [facility] CenterQrvqyorEJKGZOCWEQ8112-19-00 22:53:19 Test Item Value Reference Range Interpretation Comments Hgb (test code = Hgb) 12.7 12.0-16.0 [facility] CenterVaxmlrfFFQILDAKYA2875-25-40 22:53:19 Test Item Value Reference Range Interpretation Comments Basophils (test code = 1.0 See_Comment [Aut omated message] The Basophils) system which ge nerated this result tra nsmitted reference range : <=1.0. The reference r kat was not used to int erpret this result as normal/abnormal . [facility] CenterBhalhntUZMSJMDINZ9699-45-58 22:53:19 Test Item Value Reference Range Interpretation Comments WBC (test code = WBC) 11.5 3.7-10.4 [facility] CenterKehkvwuRFMUYHCUKS7072-19-10 22:53:19 Test Item Value Reference Range Interpretation Comments MCH (test code = MCH) 24.3 pg 27.0-31.0 [facility] CenterYxoxwsxBYHNQKDTXZ1098-16-27 22:53:19 Test Item Value Reference Range Interpretation Comments MCHC (test code = MCHC) 31.0 32.0-36.0 [facility] CenterLzvskzlATXAURSMNP2637-49-81 22:53:19 Test Item Value Reference Range Interpretation Comments MCV (test code = MCV) 78.4 80.0-98.0 [facility] FZEXI2570[facility]69[facility]43 22:53:19 Test Item Value Reference Range Interpretation Comments FTI (test code = FTI) 2.5 [facility] [id number] 22:53:19 Test Item Value Reference Range Interpretation Comments TSH (test code = TSH) 1.540 0.360-3.740 [facility]TH[facility] MRRGK6530-17-40 22:53:19 Test Item Value Reference Range Interpretation Comments T3 Uptake (test code = T3 Uptake) 31 31-39 [facility][1][id number] 22:53:19 Test Item Value Reference Range Interpretation Comments T4 (test code = T4) 8.0 4.7-13.3 [facility] CenterEtmnshwYWUJQJPQOB8166-80-61 22:53:19 Test Item Value Reference Range Interpretation Comments Lymphocytes (test code = Lymphocytes) 32.9 20.0-40.0 [facility] CenterXhuzmkzUYPXXFMGUA3810-92-69 22:53:19 Test Item Value Reference Range Interpretation Comments Eosinophils (test code = 1.0 See_Comment [A utomated message] The Eosinophils) system which ge nerated this result tra nsmitted reference range : <=4.0. The reference r kat was not used to int erpret this result as normal/abnormal . [facility] CenterAfbcrfsIPLDRTNGVY0325-34-54 22:53:19 Test Item Value Reference Range Interpretation Comments Lymphocytes # (test code = Lymphocytes 3.8 1.0-5.5 #) [facility] CenterXuysertFHCUOINMJE0505-84-34 22:53:19 Test Item Value Reference Range Interpretation Comments Segs-Bands # (test code = Segs-Bands #) 6.6 1.5-8.1 [facility] CenterIcwpvttOZXTBAKDPF2359-90-74 22:53:19 Test Item Value Reference Range Interpretation Comments Eosinophils # (test code 0.1 See_Comment [A utomated message] The = Eosinophils #) system whic h generated this result tra nsmitted reference range : <=0.5. The reference r kat was not used to int erpret this result as normal/abnormal . [facility] CenterVvdtioeALEJQOMRFV9326-76-97 22:53:19 Test Item Value Reference Range Interpretation Comments Monocytes # (test code 0.9 See_Comment [Aut omated message] The = Monocytes #) system which generated this result tra nsmitted reference range : <=0.8. The reference r kat was not used to int erpret this result as normal/abnormal . [facility] CenterRhtegwsGKMFNRKCVY5782-88-36 22:53:19 Test Item Value Reference Range Interpretation Comments Microcyte (test code = 1+ *ABN*(06/07/15 Microcyte) 5:53 PM) [facility] CenterEyfezkzPZTOIWSFGO1015-90-56 22:53:19 Test Item Value Reference Range Interpretation Comments Basophils # (test code 0.1 See_Comment [Aut omated message] The = Basophils #) system which generated this result tra nsmitted reference range : <=0.2. The reference r kat was not used to int erpret this result as normal/abnormal . [facility] CenterYfcjgtvNTXJMFQRSD1504-55-65 22:53:19 Test Item Value Reference Range Interpretation Comments RBC (test code = RBC) 5.23 4.20-5.40 [facility] CenterUekrjyuSEPUZZYJSV3363-69-22 22:53:19 Test Item Value Reference Range Interpretation Comments Platelet (test code = Platelet) 241 133-450 [facility] CenterPsipsyuRPQFTKJNXG0915-84-96 22:53:19 Test Item Value Reference Range Interpretation Comments MPV (test code = MPV) 9.3 7.4-10.4 [facility] CenterCbuokxsRFBXOLQSAC5755-35-55 22:53:19 Test Item Value Reference Range Interpretation Comments RDW (test code = RDW) 16.5 11.5-14.5 [facility] CenterAppsvvvUUIHKFJTNI6141-19-95 22:53:19 Test Item Value Reference Range Interpretation Comments Hct (test code = Hct) 41.0 36.0-48.0 [facility] CenterOivzugcXCCWOTKMWT4935-29-23 22:53:19 Test Item Value Reference Range Interpretation Comments Hgb (test code = Hgb) 12.7 12.0-16.0 [facility] CenterXgmhhjeACODKKFUAI9492-88-54 22:53:19 Test Item Value Reference Range Interpretation Comments WBC (test code = WBC) 11.5 3.7-10.4 [facility] CenterHpziskuNXCDEVEZED0802-48-92 22:53:19 Test Item Value Reference Range Interpretation Comments MCH (test code = MCH) 24.3 pg 27.0-31.0 [facility] CenterEjjtpgkCYHABGUYQJ8076-81-83 22:53:19 Test Item Value Reference Range Interpretation Comments MCHC (test code = MCHC) 31.0 32.0-36.0 [facility] CenterVixafikQLCWCPFYII4399-94-65 22:53:19 Test Item Value Reference Range Interpretation Comments MCV (test code = MCV) 78.4 80.0-98.0 [facility]2015-10-09 22:53:19 Test Item Value Reference Range Interpretation Comments FTI (test code = FTI) 2.5 [facility]2015-10-09 22:53:19 Test Item Value Reference Range Interpretation Comments TSH (test code = TSH) 1.540 0.360-3.740 [facility]2015-10-09 22:53:19 Test Item Value Reference Range Interpretation Comments T3 Uptake (test code = T3 Uptake) 31 31-39 [facility]2015-10-09 22:53:19 Test Item Value Reference Range Interpretation Comments T4 (test code = T4) 8.0 4.7-13.3 [facility]2015-10-09 22:53:19 Test Item Value Reference Range Interpretation Comments Transferrin (test code = Transferrin) 256 212-360 [facility]2015-10-09 22:53:19 Test Item Value Reference Range Interpretation Comments Vitamin B12 Lvl (test code = Vitamin [phone] B12 Lvl) [facility]2015-10-09 22:53:19 Test Item Value Reference Range Interpretation Comments eGFR (test code = eGFR) 70 [facility]2015-10-09 22:53:19 Test Item Value Reference Range Interpretation Comments Glucose Lvl (test code = Glucose Lvl) 103 70-99 [facility]2015-10-09 22:53:19 Test Item Value Reference Range Interpretation Comments Albumin Lvl (test code = Albumin Lvl) 3.6 3.5-5.0 [facility]2015-10-09 22:53:19 Test Item Value Reference Range Interpretation Comments CO2 (test code = CO2) 24 24-32 [facility]2015-10-09 22:53:19 Test Item Value Reference Range Interpretation Comments Total Protein (test code = Total 7.2 6.4-8.4 Protein) [facility]2015-10-09 22:53:19 Test Item Value Reference Range Interpretation Comments Creatinine Lvl (test code = Creatinine 1.1 0.5-1.4 Lvl) [facility]2015-10-09 22:53:19 Test Item Value Reference Range Interpretation Comments BUN (test code = BUN) 14 7-22 [facility]2015-10-09 22:53:19 Test Item Value Reference Range Interpretation Comments AST (test code = AST) 12 See_Comment [Auto mated message] The system which ge nerated this result transmit arvind reference range : <=37. The reference range was not used to interpr et this result as mario l/abnormal. [facility]2015-10-09 22:53:19 Test Item Value Reference Range Interpretation Comments ALT (test code = ALT) 41 See_Comment [Auto mated message] The system which ge nerated this result transmit arvind reference range : <=65. The reference range was not used to interpr et this result as mario l/abnormal. [facility]2015-10-09 22:53:19 Test Item Value Reference Range Interpretation Comments Alk Phos (test code = Alk Phos) 100 39-136 [facility]2015-10-09 22:53:19 Test Item Value Reference Range Interpretation Comments Bili Total (test code = Bili Total) 0.2 0.2-1.3 [address]10-09 22:53:19 Test Item Value Reference Range Interpretation Comments Potassium Lvl (test code = Potassium 3.9 3.5-5.1 Lvl) [facility]2015-10-09 22:53:19 Test Item Value Reference Range Interpretation Comments Sodium Lvl (test code = Sodium Lvl) 141 135-145 [facility]2015-10-09 22:53:19 Test Item Value Reference Range Interpretation Comments Calcium Lvl (test code = Calcium Lvl) 9.0 8.5-10.5 [facility]2015-10-09 22:53:19 Test Item Value Reference Range Interpretation Comments Chloride Lvl (test code = Chloride Lvl) 109 95-109 [facility]2015-10-09 22:53:19 Test Item Value Reference Range Interpretation Comments AGAP (test code = AGAP) 11.9 10.0-20.0 [facility]2015-10-09 22:53:19 Test Item Value Reference Range Interpretation Comments A/G Ratio (test code = A/G Ratio) 1.0 0.7-1.6 [facility]2015-10-09 22:53:19 Test Item Value Reference Range Interpretation Comments B/C Ratio (test code = B/C Ratio) 13 6-25 [facility]2015-10-09 22:53:19 Test Item Value Reference Range Interpretation Comments Globulin (test code = Globulin) 3.6 2.0-4.0 [facility]2015-10-09 22:53:19 Test Item Value Reference Range Interpretation Comments Magnesium Lvl (test code = Magnesium 1.8 1.8-2.4 Lvl) [facility] CenterRtohptaFRWOTCXHOJ0482-63-01 22:53:19 Test Item Value Reference Range Interpretation Comments Segs (test code = Segs) 57.5 45.0-75.0 [facility] CenterSyumdptQNUGDTQZTX8923-26-20 22:53:19 Test Item Value Reference Range Interpretation Comments Monocytes (test code = Monocytes) 7.6 2.0-12.0 [facility] CenterNscgcmoATWGEEOCYF5826-56-71 22:53:19 Test Item Value Reference Range Interpretation Comments Basophils (test code = 1.0 See_Comment [Aut omated message] The Basophils) system which ge nerated this result tra nsmitted reference range : <=1.0. The reference r kat was not used to int erpret this result as normal/abnormal . [facility] CenterBqwaxstPFMMHBJWFI0960-18-81 22:53:19 Test Item Value Reference Range Interpretation Comments Lymphocytes (test code = Lymphocytes) 32.9 20.0-40.0 [facility] CenterNqvuxgbNATYGGBZLK5496-34-57 22:53:19 Test Item Value Reference Range Interpretation Comments Eosinophils (test code = 1.0 See_Comment [A utomated message] The Eosinophils) system which ge nerated this result tra nsmitted reference range : <=4.0. The reference r kat was not used to int erpret this result as normal/abnormal . [facility] CenterIdswzbfDKBOAJPKAZ2837-81-27 22:53:19 Test Item Value Reference Range Interpretation Comments Lymphocytes # (test code = Lymphocytes 3.8 1.0-5.5 #) [facility] CenterOmikgugCSQMIVXTGC8801-09-48 22:53:19 Test Item Value Reference Range Interpretation Comments Segs-Bands # (test code = Segs-Bands #) 6.6 1.5-8.1 [facility] CenterDkweylpWVUHJOUFGJ1772-51-76 22:53:19 Test Item Value Reference Range Interpretation Comments Eosinophils # (test code 0.1 See_Comment [A utomated message] The = Eosinophils #) system whic h generated this result tra nsmitted reference range : <=0.5. The reference r kat was not used to int erpret this result as normal/abnormal . [facility] CenterQdweoulDNCBOIINUJ4165-12-32 22:53:19 Test Item Value Reference Range Interpretation Comments Monocytes # (test code 0.9 See_Comment [Aut omated message] The = Monocytes #) system which generated this result tra nsmitted reference range : <=0.8. The reference r kat was not used to int erpret this result as normal/abnormal . [facility] CenterZmztleuVULHUBSUYN4322-37-18 22:53:19 Test Item Value Reference Range Interpretation Comments Microcyte (test code = 1+ *ABN*(06/07/15 Microcyte) 5:53 PM) [facility] CenterDmmcmjuXQFENALZMT4746-69-80 22:53:19 Test Item Value Reference Range Interpretation Comments Basophils # (test code 0.1 See_Comment [Aut omated message] The = Basophils #) system which generated this result tra nsmitted reference range : <=0.2. The reference r kat was not used to int erpret this result as normal/abnormal . [facility] CenterEhwiqosMENRQCTXIK7841-60-25 22:53:19 Test Item Value Reference Range Interpretation Comments RBC (test code = RBC) 5.23 4.20-5.40 [facility] CenterTycgwpjDPKNDECDZR7543-41-46 22:53:19 Test Item Value Reference Range Interpretation Comments Platelet (test code = Platelet) 241 133-450 [facility] CenterSgcbqfvWYNZASOQPD0264-77-04 22:53:19 Test Item Value Reference Range Interpretation Comments MPV (test code = MPV) 9.3 7.4-10.4 [facility] CenterEnttmxlPSKDRUQPJH2616-21-57 22:53:19 Test Item Value Reference Range Interpretation Comments RDW (test code = RDW) 16.5 11.5-14.5 [facility] CenterJymnkmjRAXIJXMGFG9921-92-31 22:53:19 Test Item Value Reference Range Interpretation Comments Hct (test code = Hct) 41.0 36.0-48.0 [facility] CenterAtyuxqeCPLECGSAGH3739-86-48 22:53:19 Test Item Value Reference Range Interpretation Comments Hgb (test code = Hgb) 12.7 12.0-16.0 [facility] CenterMutwlxwFKQIOJRWQB2603-78-84 22:53:19 Test Item Value Reference Range Interpretation Comments WBC (test code = WBC) 11.5 3.7-10.4 [facility] CenterOpwcvunWFVITXEIHM2584-23-77 22:53:19 Test Item Value Reference Range Interpretation Comments MCH (test code = MCH) 24.3 pg 27.0-31.0 [facility] CenterBpkhaaqDAJWILGYIR5240-43-62 22:53:19 Test Item Value Reference Range Interpretation Comments MCHC (test code = MCHC) 31.0 32.0-36.0 [facility] CenterZbbbwmhGJBFKFQUAA3302-92-17 22:53:19 Test Item Value Reference Range Interpretation Comments MCV (test code = MCV) 78.4 80.0-98.0 [facility] LFJVY6476-79-25 22:53:19 Test Item Value Reference Range Interpretation Comments FTI (test code = FTI) 2.5 [facility] UMLKY1148-05-64 22:53:19 Test Item Value Reference Range Interpretation Comments TSH (test code = TSH) 1.540 0.360-3.740 [facility]2015-10-09 22:53:19 Test Item Value Reference Range Interpretation Comments T3 Uptake (test code = T3 Uptake) 31 31-39 [facility]2015-10-09 22:53:19 Test Item Value Reference Range Interpretation Comments T4 (test code = T4) 8.0 4.7-13.3 [facility]2015-10-09 22:53:19 Test Item Value Reference Range Interpretation Comments Transferrin (test code = Transferrin) 256 212-360 [facility]2015-10-09 22:53:19 Test Item Value Reference Range Interpretation Comments Vitamin B12 Lvl (test code = Vitamin [phone] B12 Lvl) [facility]2015-10-09 22:53:19 Test Item Value Reference Range Interpretation Comments eGFR (test code = eGFR) 70 [facility]2015-10-09 22:53:19 Test Item Value Reference Range Interpretation Comments Glucose Lvl (test code = Glucose Lvl) 103 70-99 [facility]2015-10-09 22:53:19 Test Item Value Reference Range Interpretation Comments Albumin Lvl (test code = Albumin Lvl) 3.6 3.5-5.0 [facility]2015-10-09 22:53:19 Test Item Value Reference Range Interpretation Comments CO2 (test code = CO2) 24 24-32 [facility]2015-10-09 22:53:19 Test Item Value Reference Range Interpretation Comments Total Protein (test code = Total 7.2 6.4-8.4 Protein) [facility]2015-10-09 22:53:19 Test Item Value Reference Range Interpretation Comments Creatinine Lvl (test code = Creatinine 1.1 0.5-1.4 Lvl) [facility]2015-10-09 22:53:19 Test Item Value Reference Range Interpretation Comments BUN (test code = BUN) 14 7-22 [facility]2015-10-09 22:53:19 Test Item Value Reference Range Interpretation Comments AST (test code = AST) 12 See_Comment [Auto mated message] The system which ge nerated this result transmit arvind reference range : <=37. The reference range was not used to interpr et this result as mario l/abnormal. [facility]2015-10-09 22:53:19 Test Item Value Reference Range Interpretation Comments ALT (test code = ALT) 41 See_Comment [Auto mated message] The system which ge nerated this result transmit arvind reference range : <=65. The reference range was not used to interpr et this result as mario l/abnormal. [facility]2015-10-09 22:53:19 Test Item Value Reference Range Interpretation Comments Alk Phos (test code = Alk Phos) 100 39-136 [facility]2015-10-09 22:53:19 Test Item Value Reference Range Interpretation Comments Bili Total (test code = Bili Total) 0.2 0.2-1.3 [facility]2015-10-09 22:53:19 Test Item Value Reference Range Interpretation Comments Potassium Lvl (test code = Potassium 3.9 3.5-5.1 Lvl) [facility]2015-10-09 22:53:19 Test Item Value Reference Range Interpretation Comments Sodium Lvl (test code = Sodium Lvl) 141 135-145 [facility]2015-10-09 22:53:19 Test Item Value Reference Range Interpretation Comments Calcium Lvl (test code = Calcium Lvl) 9.0 8.5-10.5 [facility]2015-10-09 22:53:19 Test Item Value Reference Range Interpretation Comments Chloride Lvl (test code = Chloride Lvl) 109 95-109 [facility]2015-10-09 22:53:19 Test Item Value Reference Range Interpretation Comments AGAP (test code = AGAP) 11.9 10.0-20.0 [facility]2015-10-09 22:53:19 Test Item Value Reference Range Interpretation Comments A/G Ratio (test code = A/G Ratio) 1.0 0.7-1.6 [facility]2015-10-09 22:53:19 Test Item Value Reference Range Interpretation Comments B/C Ratio (test code = B/C Ratio) 13 6-25 [facility]2015-10-09 22:53:19 Test Item Value Reference Range Interpretation Comments Globulin (test code = Globulin) 3.6 2.0-4.0 [facility]2015-10-09 22:53:19 Test Item Value Reference Range Interpretation Comments Magnesium Lvl (test code = Magnesium 1.8 1.8-2.4 Lvl) [facility] CenterCottrkyDAUGNEDLUS3921-86-26 22:53:19 Test Item Value Reference Range Interpretation Comments Segs (test code = Segs) 57.5 45.0-75.0 [facility] CenterEyndwcvCWQYWLPTAD6451-89-43 22:53:19 Test Item Value Reference Range Interpretation Comments Monocytes (test code = Monocytes) 7.6 2.0-12.0 [facility] CenterXpifhdpQCAGMPHUVG1703-82-65 22:53:19 Test Item Value Reference Range Interpretation Comments Basophils (test code = 1.0 See_Comment [Aut omated message] The Basophils) system which ge nerated this result tra nsmitted reference range : <=1.0. The reference r kat was not used to int erpret this result as normal/abnormal . [facility] CenterAapnlcbQOYGCUIWTW0861-47-69 22:53:19 Test Item Value Reference Range Interpretation Comments Lymphocytes (test code = Lymphocytes) 32.9 20.0-40.0 [facility] CenterUexdwjtYDTUOIINIP4590-11-20 22:53:19 Test Item Value Reference Range Interpretation Comments Eosinophils (test code = 1.0 See_Comment [A utomated message] The Eosinophils) system which ge nerated this result tra nsmitted reference range : <=4.0. The reference r kat was not used to int erpret this result as normal/abnormal . [facility] CenterAtxomwpDXQABRQTEY8809-39-57 22:53:19 Test Item Value Reference Range Interpretation Comments Lymphocytes # (test code = Lymphocytes 3.8 1.0-5.5 #) [facility] CenterIhzfozeXKOUEWJBLT8723-12-60 22:53:19 Test Item Value Reference Range Interpretation Comments Segs-Bands # (test code = Segs-Bands #) 6.6 1.5-8.1 [facility] CenterEbnxkssLRZQMTFKCY4379-83-02 22:53:19 Test Item Value Reference Range Interpretation Comments Eosinophils # (test code 0.1 See_Comment [A utomated message] The = Eosinophils #) system whic h generated this result tra nsmitted reference range : <=0.5. The reference r kat was not used to int erpret this result as normal/abnormal . [facility] CenterLtmrwnvJYQOWMBTYM8667-64-24 22:53:19 Test Item Value Reference Range Interpretation Comments Monocytes # (test code 0.9 See_Comment [Aut omated message] The = Monocytes #) system which generated this result tra nsmitted reference range : <=0.8. The reference r kat was not used to int erpret this result as normal/abnormal . [facility] CenterUkgztvdESWZBXFUQJ9839-11-51 22:53:19 Test Item Value Reference Range Interpretation Comments Microcyte (test code = 1+ *ABN*(06/07/15 Microcyte) 5:53 PM) [facility] CenterTmubkcbDIJBSAAXWG2302-91-42 22:53:19 Test Item Value Reference Range Interpretation Comments Basophils # (test code 0.1 See_Comment [Aut omated message] The = Basophils #) system which generated this result tra nsmitted reference range : <=0.2. The reference r kat was not used to int erpret this result as normal/abnormal . [facility] CenterOiuoywiCAJXATXKXH5405-29-13 22:53:19 Test Item Value Reference Range Interpretation Comments RBC (test code = RBC) 5.23 4.20-5.40 [facility] CenterZekjvshZBHZZXLSCP5902-18-28 22:53:19 Test Item Value Reference Range Interpretation Comments Platelet (test code = Platelet) 241 133-450 [facility] CenterJozregdOBLYSIBTFB9226-52-44 22:53:19 Test Item Value Reference Range Interpretation Comments MPV (test code = MPV) 9.3 7.4-10.4 [facility] CenterPujyqffKSCAFEZLVD0879-05-76 22:53:19 Test Item Value Reference Range Interpretation Comments RDW (test code = RDW) 16.5 11.5-14.5 [facility] CenterSmkcungOWDXBLGUNE2652-04-93 22:53:19 Test Item Value Reference Range Interpretation Comments Hct (test code = Hct) 41.0 36.0-48.0 [facility] CenterEyuknqhXVGEKQTPLE4543-22-99 22:53:19 Test Item Value Reference Range Interpretation Comments Hgb (test code = Hgb) 12.7 12.0-16.0 [facility] CenterErcefqhKKLHDUILRW5650-24-31 22:53:19 Test Item Value Reference Range Interpretation Comments WBC (test code = WBC) 11.5 3.7-10.4 [facility] CenterIithfrkULAADVCTRF3997-86-66 22:53:19 Test Item Value Reference Range Interpretation Comments MCH (test code = MCH) 24.3 pg 27.0-31.0 [facility] CenterBuucdvqILWAXUFZIP7525-32-04 22:53:19 Test Item Value Reference Range Interpretation Comments MCHC (test code = MCHC) 31.0 32.0-36.0 [facility] CenterWvzuuehYBJUJZFIIL0260-89-25 22:53:19 Test Item Value Reference Range Interpretation Comments MCV (test code = MCV) 78.4 80.0-98.0 [facility]2015-10-09 22:53:19 Test Item Value Reference Range Interpretation Comments FTI (test code = FTI) 2.5 [facility]2015-10-09 22:53:19 Test Item Value Reference Range Interpretation Comments TSH (test code = TSH) 1.540 0.360-3.740 [facility]2015-10-09 22:53:19 Test Item Value Reference Range Interpretation Comments T3 Uptake (test code = T3 Uptake) 31 31-39 [facility]2015-10-09 22:53:19 Test Item Value Reference Range Interpretation Comments T4 (test code = T4) 8.0 4.7-13.3 [facility]2015-10-09 22:53:19 Test Item Value Reference Range Interpretation Comments Transferrin (test code = Transferrin) 256 212-360 [facility]2015-10-09 22:53:19 Test Item Value Reference Range Interpretation Comments Vitamin B12 Lvl (test code = Vitamin 369 [id number] B12 Lvl) [facility]2015-10-09 22:53:19 Test Item Value Reference Range Interpretation Comments eGFR (test code = eGFR) 70 [facility]2015-10-09 22:53:19 Test Item Value Reference Range Interpretation Comments Glucose Lvl (test code = Glucose Lvl) 103 70-99 [facility]2015-10-09 22:53:19 Test Item Value Reference Range Interpretation Comments Albumin Lvl (test code = Albumin Lvl) 3.6 3.5-5.0 [facility]2015-10-09 22:53:19 Test Item Value Reference Range Interpretation Comments CO2 (test code = CO2) 24 24-32 [facility]2015-10-09 22:53:19 Test Item Value Reference Range Interpretation Comments Total Protein (test code = Total 7.2 6.4-8.4 Protein) [facility]2015-10-09 22:53:19 Test Item Value Reference Range Interpretation Comments Creatinine Lvl (test code = Creatinine 1.1 0.5-1.4 Lvl) [facility]2015-10-09 22:53:19 Test Item Value Reference Range Interpretation Comments BUN (test code = BUN) 14 7-22 [facility]2015-10-09 22:53:19 Test Item Value Reference Range Interpretation Comments AST (test code = AST) 12 See_Comment [Auto mated message] The system which ge nerated this result transmit arvind reference range : <=37. The reference range was not used to interpr et this result as mario l/abnormal. [facility]2015-10-09 22:53:19 Test Item Value Reference Range Interpretation Comments ALT (test code = ALT) 41 See_Comment [Auto mated message] The system which ge nerated this result transmit arvind reference range : <=65. The reference range was not used to interpr et this result as mario l/abnormal. [facility]2015-10-09 22:53:19 Test Item Value Reference Range Interpretation Comments Alk Phos (test code = Alk Phos) 100 39-136 [facility]2015-10-09 22:53:19 Test Item Value Reference Range Interpretation Comments Bili Total (test code = Bili Total) 0.2 0.2-1.3 [facility]2015-10-09 22:53:19 Test Item Value Reference Range Interpretation Comments Potassium Lvl (test code = Potassium 3.9 3.5-5.1 Lvl) [facility]2015-10-09 22:53:19 Test Item Value Reference Range Interpretation Comments Sodium Lvl (test code = Sodium Lvl) 141 135-145 [facility]2015-10-09 22:53:19 Test Item Value Reference Range Interpretation Comments Calcium Lvl (test code = Calcium Lvl) 9.0 8.5-10.5 [facility]2015-10-09 22:53:19 Test Item Value Reference Range Interpretation Comments Chloride Lvl (test code = Chloride Lvl) 109 95-109 [facility]2015-10-09 22:53:19 Test Item Value Reference Range Interpretation Comments AGAP (test code = AGAP) 11.9 10.0-20.0 [facility]2015-10-09 22:53:19 Test Item Value Reference Range Interpretation Comments A/G Ratio (test code = A/G Ratio) 1.0 0.7-1.6 [facility]2015-10-09 22:53:19 Test Item Value Reference Range Interpretation Comments B/C Ratio (test code = B/C Ratio) 13 6-25 [facility]2015-10-09 22:53:19 Test Item Value Reference Range Interpretation Comments Globulin (test code = Globulin) 3.6 2.0-4.0 [facility]2015-10-09 22:53:19 Test Item Value Reference Range Interpretation Comments Magnesium Lvl (test code = Magnesium 1.8 1.8-2.4 Lvl) [facility] CenterZehhkgiEHSAHSWYIP3736-17-86 22:53:19 Test Item Value Reference Range Interpretation Comments Segs (test code = Segs) 57.5 45.0-75.0 [facility] CenterYrvlkflULOLECOUMI4953-27-42 22:53:19 Test Item Value Reference Range Interpretation Comments Monocytes (test code = Monocytes) 7.6 2.0-12.0 [facility] CenterUsydyehOOMYQIWIKT1749-18-21 22:53:19 Test Item Value Reference Range Interpretation Comments Basophils (test code = 1.0 See_Comment [Aut omated message] The Basophils) system which ge nerated this result tra nsmitted reference range : <=1.0. The reference r kat was not used to int erpret this result as normal/abnormal . [facility] CenterNwktdkoESRGCTMDLT3086-16-53 22:53:19 Test Item Value Reference Range Interpretation Comments Lymphocytes (test code = Lymphocytes) 32.9 20.0-40.0 [facility] CenterCqjbzqrOKQJSICSTM3239-04-19 22:53:19 Test Item Value Reference Range Interpretation Comments Eosinophils (test code = 1.0 See_Comment [A utomated message] The Eosinophils) system which ge nerated this result tra nsmitted reference range : <=4.0. The reference r kat was not used to int erpret this result as normal/abnormal . [facility] CenterIozehnfLRUCIBSNPF4440-82-67 22:53:19 Test Item Value Reference Range Interpretation Comments Lymphocytes # (test code = Lymphocytes 3.8 1.0-5.5 #) [facility] CenterZpzraqzACARDXVWUW7807-50-42 22:53:19 Test Item Value Reference Range Interpretation Comments Segs-Bands # (test code = Segs-Bands #) 6.6 1.5-8.1 [facility] CenterZxrtxrjYBCJMYDRBK1279-31-03 22:53:19 Test Item Value Reference Range Interpretation Comments Eosinophils # (test code 0.1 See_Comment [A utomated message] The = Eosinophils #) system whic h generated this result tra nsmitted reference range : <=0.5. The reference r kat was not used to int erpret this result as normal/abnormal . [facility] CenterXmncrdwMEDJOHCACN0659-57-91 22:53:19 Test Item Value Reference Range Interpretation Comments Monocytes # (test code 0.9 See_Comment [Aut omated message] The = Monocytes #) system which generated this result tra nsmitted reference range : <=0.8. The reference r kat was not used to int erpret this result as normal/abnormal . [facility] CenterKvgqxzbMDZAZXBFAS9339-03-30 22:53:19 Test Item Value Reference Range Interpretation Comments Microcyte (test code = 1+ *ABN*(06/07/15 Microcyte) 5:53 PM) [facility] CenterDubnxoyTOSJFOJVJF1121-20-01 22:53:19 Test Item Value Reference Range Interpretation Comments Basophils # (test code 0.1 See_Comment [Aut omated message] The = Basophils #) system which generated this result tra nsmitted reference range : <=0.2. The reference r kat was not used to int erpret this result as normal/abnormal . [facility] CenterScifducKQUFELXBPG8031-38-18 22:53:19 Test Item Value Reference Range Interpretation Comments RBC (test code = RBC) 5.23 4.20-5.40 [facility] CenterXntdooiPXXAMBLEMS3851-41-99 22:53:19 Test Item Value Reference Range Interpretation Comments Platelet (test code = Platelet) 241 133-450 [facility] CenterFqesgfwVONLUKYVSP9006-46-32 22:53:19 Test Item Value Reference Range Interpretation Comments MPV (test code = MPV) 9.3 7.4-10.4 [facility] CenterElhacupDBRTUJFCZS5040-58-20 22:53:19 Test Item Value Reference Range Interpretation Comments RDW (test code = RDW) 16.5 11.5-14.5 [facility] CenterOwznlddKQUEUYMAVC9677-94-55 22:53:19 Test Item Value Reference Range Interpretation Comments Hct (test code = Hct) 41.0 36.0-48.0 [facility] CenterMwiirdeYMUEHBPCPW1777-91-04 22:53:19 Test Item Value Reference Range Interpretation Comments Hgb (test code = Hgb) 12.7 12.0-16.0 [facility] CenterKgouhdkYBTKVBIWVC8242-83-03 22:53:19 Test Item Value Reference Range Interpretation Comments WBC (test code = WBC) 11.5 3.7-10.4 [facility] CenterBfaupsnODAQJZDYYI2983-85-07 22:53:19 Test Item Value Reference Range Interpretation Comments MCH (test code = MCH) 24.3 pg 27.0-31.0 [facility] CenterTbjjhfoGKBMIYJZCV5811-23-73 22:53:19 Test Item Value Reference Range Interpretation Comments MCHC (test code = MCHC) 31.0 32.0-36.0 [facility] CenterEuvwedlBPQKQCTFUG7205-56-72 22:53:19 Test Item Value Reference Range Interpretation Comments MCV (test code = MCV) 78.4 80.0-98.0 [facility]2015-10-09 22:53:19 Test Item Value Reference Range Interpretation Comments FTI (test code = FTI) 2.5 [facility]2015-10-09 22:53:19 Test Item Value Reference Range Interpretation Comments TSH (test code = TSH) 1.540 0.360-3.740 [facility]2015-10-09 22:53:19 Test Item Value Reference Range Interpretation Comments T3 Uptake (test code = T3 Uptake) 31 31-39 [facility]2015-10-09 22:53:19 Test Item Value Reference Range Interpretation Comments T4 (test code = T4) 8.0 4.7-13.3 [facility]2015-10-09 22:53:19 Test Item Value Reference Range Interpretation Comments Transferrin (test code = Transferrin) 256 212-360 [facility]2015-10-09 22:53:19 Test Item Value Reference Range Interpretation Comments Vitamin B12 Lvl (test code = Vitamin 837 [id number] B12 Lvl) [facility]2015-10-09 22:53:19 Test Item Value Reference Range Interpretation Comments eGFR (test code = eGFR) 70 [facility]2015-10-09 22:53:19 Test Item Value Reference Range Interpretation Comments Glucose Lvl (test code = Glucose Lvl) 103 70-99 [facility]2015-10-09 22:53:19 Test Item Value Reference Range Interpretation Comments Albumin Lvl (test code = Albumin Lvl) 3.6 3.5-5.0 [facility]2015-10-09 22:53:19 Test Item Value Reference Range Interpretation Comments CO2 (test code = CO2) 24 24-32 [facility]2015-10-09 22:53:19 Test Item Value Reference Range Interpretation Comments Total Protein (test code = Total 7.2 6.4-8.4 Protein) [facility]2015-10-09 22:53:19 Test Item Value Reference Range Interpretation Comments Creatinine Lvl (test code = Creatinine 1.1 0.5-1.4 Lvl) [facility]2015-10-09 22:53:19 Test Item Value Reference Range Interpretation Comments BUN (test code = BUN) 14 7-22 [facility]2015-10-09 22:53:19 Test Item Value Reference Range Interpretation Comments AST (test code = AST) 12 See_Comment [Auto mated message] The system which ge nerated this result transmit arvind reference range : <=37. The reference range was not used to interpr et this result as mario l/abnormal. [facility]2015-10-09 22:53:19 Test Item Value Reference Range Interpretation Comments ALT (test code = ALT) 41 See_Comment [Auto mated message] The system which ge nerated this result transmit arvind reference range : <=65. The reference range was not used to interpr et this result as mario l/abnormal. [facility]2015-10-09 22:53:19 Test Item Value Reference Range Interpretation Comments Alk Phos (test code = Alk Phos) 100 39-136 [facility]2015-10-09 22:53:19 Test Item Value Reference Range Interpretation Comments Bili Total (test code = Bili Total) 0.2 0.2-1.3 [facility]2015-10-09 22:53:19 Test Item Value Reference Range Interpretation Comments Potassium Lvl (test code = Potassium 3.9 3.5-5.1 Lvl) [facility]2015-10-09 22:53:19 Test Item Value Reference Range Interpretation Comments Sodium Lvl (test code = Sodium Lvl) 141 135-145 [facility]2015-10-09 22:53:19 Test Item Value Reference Range Interpretation Comments Calcium Lvl (test code = Calcium Lvl) 9.0 8.5-10.5 [facility]2015-10-09 22:53:19 Test Item Value Reference Range Interpretation Comments Chloride Lvl (test code = Chloride Lvl) 109 95-109 [facility]2015-10-09 22:53:19 Test Item Value Reference Range Interpretation Comments AGAP (test code = AGAP) 11.9 10.0-20.0 [facility]2015-10-09 22:53:19 Test Item Value Reference Range Interpretation Comments A/G Ratio (test code = A/G Ratio) 1.0 0.7-1.6 [facility]2015-10-09 22:53:19 Test Item Value Reference Range Interpretation Comments B/C Ratio (test code = B/C Ratio) 13 6-25 [facility]2015-10-09 22:53:19 Test Item Value Reference Range Interpretation Comments Globulin (test code = Globulin) 3.6 2.0-4.0 [facility]2015-10-09 22:53:19 Test Item Value Reference Range Interpretation Comments Magnesium Lvl (test code = Magnesium 1.8 1.8-2.4 Lvl) [facility] CenterWlqzoddUFRJNWYYNH1483-92-27 22:53:19 Test Item Value Reference Range Interpretation Comments Segs (test code = Segs) 57.5 45.0-75.0 [facility] CenterSfhsqzlMQPQXURIAQ3332-44-54 22:53:19 Test Item Value Reference Range Interpretation Comments Monocytes (test code = Monocytes) 7.6 2.0-12.0 [facility] CenterZjbpwwaXLYLGUXLFL8488-67-94 22:53:19 Test Item Value Reference Range Interpretation Comments Basophils (test code = 1.0 See_Comment [Aut omated message] The Basophils) system which ge nerated this result tra nsmitted reference range : <=1.0. The reference r kat was not used to int erpret this result as normal/abnormal . [facility] CenterIiyfjfuRCDRTPKBIA8254-03-83 22:53:19 Test Item Value Reference Range Interpretation Comments Lymphocytes (test code = Lymphocytes) 32.9 20.0-40.0 [facility] CenterZvyiotxOHCQZUZGJS4135-77-31 22:53:19 Test Item Value Reference Range Interpretation Comments Eosinophils (test code = 1.0 See_Comment [A utomated message] The Eosinophils) system which ge nerated this result tra nsmitted reference range : <=4.0. The reference r kat was not used to int erpret this result as normal/abnormal . [facility] CenterAdhorqnGRZKRCOQAH3900-14-75 22:53:19 Test Item Value Reference Range Interpretation Comments Lymphocytes # (test code = Lymphocytes 3.8 1.0-5.5 #) [facility] CenterEyxmdmzQOBTLTPJLY6659-14-36 22:53:19 Test Item Value Reference Range Interpretation Comments Segs-Bands # (test code = Segs-Bands #) 6.6 1.5-8.1 [facility] CenterGevcqkuROYHYIOXGY2871-05-05 22:53:19 Test Item Value Reference Range Interpretation Comments Eosinophils # (test code 0.1 See_Comment [A utomated message] The = Eosinophils #) system [facility] h generated this result tra nsmitted reference range : <=0.5. The reference r kat was not used to int erpret this result as normal/abnormal . [facility] CenterTbelbaqUCFVQANKIV3621-25-32 22:53:19 Test Item Value Reference Range Interpretation Comments Monocytes # (test code 0.9 See_Comment [Aut omated message] The = Monocytes #) system which generated this result tra nsmitted reference range : <=0.8. The reference r kat was not used to int erpret this result as normal/abnormal . [facility] CenterKlkuahdMGIFAOEDWN8969-04-95 22:53:19 Test Item Value Reference Range Interpretation Comments Microcyte (test code = 1+ *ABN*(06/07/15 Microcyte) 5:53 PM) [facility] CenterZlrbbmlRNKUTQWUKP3807-33-12 22:53:19 Test Item Value Reference Range Interpretation Comments Basophils # (test code 0.1 See_Comment [Aut omated message] The = Basophils #) system which generated this result tra nsmitted reference range : <=0.2. The reference r kat was not used to int erpret this result as normal/abnormal . [facility] CenterOpvuxitWMPXGIVFTZ1075-57-99 22:53:19 Test Item Value Reference Range Interpretation Comments RBC (test code = RBC) 5.23 4.20-5.40 [facility] CenterSzvhgtpFIXWIQWEQT6591-58-99 22:53:19 Test Item Value Reference Range Interpretation Comments Platelet (test code = Platelet) 241 133-450 [facility] CenterQatoonhQPVMDIWOHO1757-49-00 22:53:19 Test Item Value Reference Range Interpretation Comments MPV (test code = MPV) 9.3 7.4-10.4 [facility] CenterHhgisueDPAKWDYEGN9334-38-85 22:53:19 Test Item Value Reference Range Interpretation Comments RDW (test code = RDW) 16.5 11.5-14.5 [facility] CenterKeahwbmHHFRVQEZXO3623-00-35 22:53:19 Test Item Value Reference Range Interpretation Comments Hct (test code = Hct) 41.0 36.0-48.0 [facility] CenterJjmschmPAPZKBAQIY8276-77-54 22:53:19 Test Item Value Reference Range Interpretation Comments Hgb (test code = Hgb) 12.7 12.0-16.0 [facility] CenterZjboxcfGXDKIWIBDQ1717-56-67 22:53:19 Test Item Value Reference Range Interpretation Comments WBC (test code = WBC) 11.5 3.7-10.4 [facility] CenterKletwfsFDNHVAEYIH4290-66-55 22:53:19 Test Item Value Reference Range Interpretation Comments MCH (test code = MCH) 24.3 pg 27.0-31.0 [facility] CenterItarmprNYHHQSBTXG6798-93-87 22:53:19 Test Item Value Reference Range Interpretation Comments MCHC (test code = MCHC) 31.0 32.0-36.0 [facility] CenterJqllujoVHTFISFKUY1931-97-18 22:53:19 Test Item Value Reference Range Interpretation Comments MCV (test code = MCV) 78.4 80.0-98.0 [facility] GJUVY1302-93-73 22:53:19 Test Item Value Reference Range Interpretation Comments FTI (test code = FTI) 2.5 [facility]2015-10-09 22:53:19 Test Item Value Reference Range Interpretation Comments TSH (test code = TSH) 1.540 0.360-3.740 [facility]2015-10-09 22:53:19 Test Item Value Reference Range Interpretation Comments T3 Uptake (test code = T3 Uptake) 31 31-39 [facility]2015-10-09 22:53:19 Test Item Value Reference Range Interpretation Comments T4 (test code = T4) 8.0 4.7-13.3 [facility]2015-10-09 22:53:19 Test Item Value Reference Range Interpretation Comments Transferrin (test code = Transferrin) 256 212-360 [facility]2015-10-09 22:53:19 Test Item Value Reference Range Interpretation Comments Vitamin B12 Lvl (test code = Vitamin [phone] B12 Lvl) [facility]2015-10-09 22:53:19 Test Item Value Reference Range Interpretation Comments eGFR (test code = eGFR) 70 [facility]2015-10-09 22:53:19 Test Item Value Reference Range Interpretation Comments Glucose Lvl (test code = Glucose Lvl) 103 70-99 [facility]2015-10-09 22:53:19 Test Item Value Reference Range Interpretation Comments Albumin Lvl (test code = Albumin Lvl) 3.6 3.5-5.0 [facility]2015-10-09 22:53:19 Test Item Value Reference Range Interpretation Comments CO2 (test code = CO2) 24 24-32 [facility]2015-10-09 22:53:19 Test Item Value Reference Range Interpretation Comments Total Protein (test code = Total 7.2 6.4-8.4 Protein) [facility]2015-10-09 22:53:19 Test Item Value Reference Range Interpretation Comments Creatinine Lvl (test code = Creatinine 1.1 0.5-1.4 Lvl) [facility]2015-10-09 22:53:19 Test Item Value Reference Range Interpretation Comments BUN (test code = BUN) 14 7-22 [facility]2015-10-09 22:53:19 Test Item Value Reference Range Interpretation Comments AST (test code = AST) 12 See_Comment [Auto mated message] The system which ge nerated this result transmit arvind reference range : <=37. The reference range was not used to interpr et this result as mario l/abnormal. [facility]2015-10-09 22:53:19 Test Item Value Reference Range Interpretation Comments ALT (test code = ALT) 41 See_Comment [Auto mated message] The system which ge nerated this result transmit arvind reference range : <=65. The reference range was not used to interpr et this result as mario l/abnormal. [facility]2015-10-09 22:53:19 Test Item Value Reference Range Interpretation Comments Alk Phos (test code = Alk Phos) 100 39-136 [facility]2015-10-09 22:53:19 Test Item Value Reference Range Interpretation Comments Bili Total (test code = Bili Total) 0.2 0.2-1.3 [facility]2015-10-09 22:53:19 Test Item Value Reference Range Interpretation Comments Potassium Lvl (test code = Potassium 3.9 3.5-5.1 Lvl) [facility]2015-10-09 22:53:19 Test Item Value Reference Range Interpretation Comments Sodium Lvl (test code = Sodium Lvl) 141 135-145 [facility]2015-10-09 22:53:19 Test Item Value Reference Range Interpretation Comments Calcium Lvl (test code = Calcium Lvl) 9.0 8.5-10.5 [facility]2015-10-09 22:53:19 Test Item Value Reference Range Interpretation Comments Chloride Lvl (test code = Chloride Lvl) 109 95-109 [facility]2015-10-09 22:53:19 Test Item Value Reference Range Interpretation Comments AGAP (test code = AGAP) 11.9 10.0-20.0 [facility]2015-10-09 22:53:19 Test Item Value Reference Range Interpretation Comments A/G Ratio (test code = A/G Ratio) 1.0 0.7-1.6 [facility]2015-10-09 22:53:19 Test Item Value Reference Range Interpretation Comments B/C Ratio (test code = B/C Ratio) 13 6-25 [facility]2015-10-09 22:53:19 Test Item Value Reference Range Interpretation Comments Globulin (test code = Globulin) 3.6 2.0-4.0 [facility] [id number] 22:53:19 Test Item Value Reference Range Interpretation Comments Magnesium Lvl (test code = Magnesium 1.8 1.8-2.4 Lvl) [facility] CenterBenjxpfYNCRYLJPVV4903-55-06 22:53:19 Test Item Value Reference Range Interpretation Comments Segs (test code = Segs) 57.5 45.0-75.0 [facility] CenterBxhbbohWDRGARGLVA4277-59-14 22:53:19 Test Item Value Reference Range Interpretation Comments Monocytes (test code = Monocytes) 7.6 2.0-12.0 [facility] CenterKhfzwuiRGKIOLKTZW6171-78-41 22:53:19 Test Item Value Reference Range Interpretation Comments Basophils (test code = 1.0 See_Comment [Aut omated message] The Basophils) system which ge nerated this result tra nsmitted reference range : <=1.0. The reference r kat was not used to int erpret this result as normal/abnormal . [facility] CenterYcxfowmGOTNVLUXNM8390-96-99 22:53:19 Test Item Value Reference Range Interpretation Comments Lymphocytes (test code = Lymphocytes) 32.9 20.0-40.0 [facility] CenterGalesqsXHWAFJQOGB4944-03-85 22:53:19 Test Item Value Reference Range Interpretation Comments Eosinophils (test code = 1.0 See_Comment [A utomated message] The Eosinophils) system which ge nerated this result tra nsmitted reference range : <=4.0. The reference r kat was not used to int erpret this result as normal/abnormal . [facility] CenterEkmxzihMDXLBXOWRO1512-77-11 22:53:19 Test Item Value Reference Range Interpretation Comments Lymphocytes # (test code = Lymphocytes 3.8 1.0-5.5 #) [facility] CenterZsurlqvARQDCQTOWS7626-34-47 22:53:19 Test Item Value Reference Range Interpretation Comments Segs-Bands # (test code = Segs-Bands #) 6.6 1.5-8.1 [facility] CenterYnnxvcdKWTTHAWFSL1493-63-45 22:53:19 Test Item Value Reference Range Interpretation Comments Eosinophils # (test code 0.1 See_Comment [A utomated message] The = Eosinophils #) system whic h generated this result tra nsmitted reference range : <=0.5. The reference r kat was not used to int erpret this result as normal/abnormal . [facility] CenterOvtxqoeCPICHXWAOR4731-62-49 22:53:19 Test Item Value Reference Range Interpretation Comments Monocytes # (test code 0.9 See_Comment [Aut omated message] The = Monocytes #) system which generated this result tra nsmitted reference range : <=0.8. The reference r kat was not used to int erpret this result as normal/abnormal . [facility] CenterYbjpofgEMBQXPJSED2271-85-10 22:53:19 Test Item Value Reference Range Interpretation Comments Microcyte (test code = 1+ *ABN*(06/07/15 Microcyte) 5:53 PM) [facility] CenterLhiuwouISIAIJOEBU4105-39-71 22:53:19 Test Item Value Reference Range Interpretation Comments Basophils # (test code 0.1 See_Comment [Aut omated message] The = Basophils #) system which generated this result tra nsmitted reference range : <=0.2. The reference r kat was not used to int erpret this result as normal/abnormal . [facility] CenterNwvligtWSUXEAMVSN5639-44-96 22:53:19 Test Item Value Reference Range Interpretation Comments RBC (test code = RBC) 5.23 4.20-5.40 [facility] CenterGnzmyenIVJYOSRADI2371-96-89 22:53:19 Test Item Value Reference Range Interpretation Comments Platelet (test code = Platelet) 241 133-450 [facility] CenterIhxpylpFLSGZOVTFX0627-46-20 22:53:19 Test Item Value Reference Range Interpretation Comments MPV (test code = MPV) 9.3 7.4-10.4 [facility] CenterSdcaamiTCHSQRLHLU1768-80-92 22:53:19 Test Item Value Reference Range Interpretation Comments RDW (test code = RDW) 16.5 11.5-14.5 [facility] CenterJfqfinrWHLVJHYGOB3857-90-39 22:53:19 Test Item Value Reference Range Interpretation Comments Hct (test code = Hct) 41.0 36.0-48.0 [facility] CenterCbobgluAAJGPRRMVJ0764-31-14 22:53:19 Test Item Value Reference Range Interpretation Comments Hgb (test code = Hgb) 12.7 12.0-16.0 [facility] CenterEckdbijQFRUYWGZFE8489-79-06 22:53:19 Test Item Value Reference Range Interpretation Comments WBC (test code = WBC) 11.5 3.7-10.4 [facility] CenterZxsvlseNUKAVYBFGN1900-20-20 22:53:19 Test Item Value Reference Range Interpretation Comments MCH (test code = MCH) 24.3 pg 27.0-31.0 [facility] CenterOtmshrbWQCIWWCCDC2006-35-83 22:53:19 Test Item Value Reference Range Interpretation Comments MCHC (test code = MCHC) 31.0 32.0-36.0 [facility] CenterDevhtnwFMCEVLXWGM1048-73-95 22:53:19 Test Item Value Reference Range Interpretation Comments MCV (test code = MCV) 78.4 80.0-98.0 [facility]2015-10-09 22:53:19 Test Item Value Reference Range Interpretation Comments FTI (test code = FTI) 2.5 [facility]2015-10-09 22:53:19 Test Item Value Reference Range Interpretation Comments TSH (test code = TSH) 1.540 0.360-3.740 [facility]2015-10-09 22:53:19 Test Item Value Reference Range Interpretation Comments T3 Uptake (test code = T3 Uptake) 31 31-39 [facility]2015-10-09 22:53:19 Test Item Value Reference Range Interpretation Comments T4 (test code = T4) 8.0 4.7-13.3 [facility]2015-10-09 22:53:19 Test Item Value Reference Range Interpretation Comments Transferrin (test code = Transferrin) 256 212-360 [facility]2015-10-09 22:53:19 Test Item Value Reference Range Interpretation Comments Vitamin B12 Lvl (test code = Vitamin [phone] B12 Lvl) [facility]2015-10-09 22:53:19 Test Item Value Reference Range Interpretation Comments eGFR (test code = eGFR) 70 [facility]2015-10-09 22:53:19 Test Item Value Reference Range Interpretation Comments Glucose Lvl (test code = Glucose Lvl) 103 70-99 [facility]2015-10-09 22:53:19 Test Item Value Reference Range Interpretation Comments Albumin Lvl (test code = Albumin Lvl) 3.6 3.5-5.0 [facility]2015-10-09 22:53:19 Test Item Value Reference Range Interpretation Comments CO2 (test code = CO2) 24 24-32 [facility]2015-10-09 22:53:19 Test Item Value Reference Range Interpretation Comments Total Protein (test code = Total 7.2 6.4-8.4 Protein) [facility]2015-10-09 22:53:19 Test Item Value Reference Range Interpretation Comments Creatinine Lvl (test code = Creatinine 1.1 0.5-1.4 Lvl) [facility]2015-10-09 22:53:19 Test Item Value Reference Range Interpretation Comments BUN (test code = BUN) 14 7-22 [facility]2015-10-09 22:53:19 Test Item Value Reference Range Interpretation Comments AST (test code = AST) 12 See_Comment [Auto mated message] The system which ge nerated this result transmit arvind reference range : <=37. The reference range was not used to interpr et this result as mario l/abnormal. [facility]2015-10-09 22:53:19 Test Item Value Reference Range Interpretation Comments ALT (test code = ALT) 41 See_Comment [Auto mated message] The system which ge nerated this result transmit arvind reference range : <=65. The reference range was not used to interpr et this result as mario l/abnormal. [facility]2015-10-09 22:53:19 Test Item Value Reference Range Interpretation Comments Alk Phos (test code = Alk Phos) 100 39-136 [facility]2015-10-09 22:53:19 Test Item Value Reference Range Interpretation Comments Bili Total (test code = Bili Total) 0.2 0.2-1.3 [facility]2015-10-09 22:53:19 Test Item Value Reference Range Interpretation Comments Potassium Lvl (test code = Potassium 3.9 3.5-5.1 Lvl) [facility]2015-10-09 22:53:19 Test Item Value Reference Range Interpretation Comments Sodium Lvl (test code = Sodium Lvl) 141 135-145 [facility]2015-10-09 22:53:19 Test Item Value Reference Range Interpretation Comments Calcium Lvl (test code = Calcium Lvl) 9.0 8.5-10.5 [facility]2015-10-09 22:53:19 Test Item Value Reference Range Interpretation Comments Chloride Lvl (test code = Chloride Lvl) 109 95-109 [facility]2015-10-09 22:53:19 Test Item Value Reference Range Interpretation Comments AGAP (test code = AGAP) 11.9 10.0-20.0 [facility]2015-10-09 22:53:19 Test Item Value Reference Range Interpretation Comments A/G Ratio (test code = A/G Ratio) 1.0 0.7-1.6 [facility]2015-10-09 22:53:19 Test Item Value Reference Range Interpretation Comments B/C Ratio (test code = B/C Ratio) 13 6-25 [facility]2015-10-09 22:53:19 Test Item Value Reference Range Interpretation Comments Globulin (test code = Globulin) 3.6 2.0-4.0 [facility]2015-10-09 22:53:19 Test Item Value Reference Range Interpretation Comments Magnesium Lvl (test code = Magnesium 1.8 1.8-2.4 Lvl) [facility] CenterWxzydawEHWYMXJYYZ2455-20-20 22:53:19 Test Item Value Reference Range Interpretation Comments Segs (test code = Segs) 57.5 45.0-75.0 [facility] CenterYsyjfbtMWIEANWQVQ8716-19-03 22:53:19 Test Item Value Reference Range Interpretation Comments Monocytes (test code = Monocytes) 7.6 2.0-12.0 [facility] CenterWylwqqsFTLVCCHJSA7303-50-78 22:53:19 Test Item Value Reference Range Interpretation Comments Basophils (test code = 1.0 See_Comment [Aut omated message] The Basophils) system which ge nerated this result tra nsmitted reference range : <=1.0. The reference r kat was not used to int erpret this result as normal/abnormal . [facility] CenterDbkcmdzXGHWJSWARP5857-62-94 22:53:19 Test Item Value Reference Range Interpretation Comments Lymphocytes (test code = Lymphocytes) 32.9 20.0-40.0 [facility] CenterOjwnlvhLWLBYDOSUN6033-94-41 22:53:19 Test Item Value Reference Range Interpretation Comments Eosinophils (test code = 1.0 See_Comment [A utomated message] The Eosinophils) system which ge nerated this result tra nsmitted reference range : <=4.0. The reference r kat was not used to int erpret this result as normal/abnormal . [facility] CenterNfngvgfAQJWYCDVBE0563-11-97 22:53:19 Test Item Value Reference Range Interpretation Comments Lymphocytes # (test code = Lymphocytes 3.8 1.0-5.5 #) [facility] CenterPfamkmpNSLMTCGMGM7227-40-47 22:53:19 Test Item Value Reference Range Interpretation Comments Segs-Bands # (test code = Segs-Bands #) 6.6 1.5-8.1 [facility] CenterKhaddobHDEHASFQGY9522-83-22 22:53:19 Test Item Value Reference Range Interpretation Comments Eosinophils # (test code 0.1 See_Comment [A utomated message] The = Eosinophils #) system whic h generated this result tra nsmitted reference range : <=0.5. The reference r kat was not used to int erpret this result as normal/abnormal . [facility] CenterGatlwjoYXAEESRPRE3114-16-81 22:53:19 Test Item Value Reference Range Interpretation Comments Monocytes # (test code 0.9 See_Comment [Aut omated message] The = Monocytes #) system which generated this result tra nsmitted reference range : <=0.8. The reference r kat was not used to int erpret this result as normal/abnormal . [facility] CenterBtpslawDGDQIYKLWL2689-61-69 22:53:19 Test Item Value Reference Range Interpretation Comments Microcyte (test code = 1+ *ABN*(06/07/15 Microcyte) 5:53 PM) [facility] CenterOzoelklVTJBVGVDNL1968-42-28 22:53:19 Test Item Value Reference Range Interpretation Comments Basophils # (test code 0.1 See_Comment [Aut omated message] The = Basophils #) system which generated this result tra nsmitted reference range : <=0.2. The reference r kat was not used to int erpret this result as normal/abnormal . [facility] CenterEvcfmsiLPNJQUZAAY1926-78-39 22:53:19 Test Item Value Reference Range Interpretation Comments RBC (test code = RBC) 5.23 4.20-5.40 [facility] CenterMalhtwxDIJZXPCHUM8984-13-28 22:53:19 Test Item Value Reference Range Interpretation Comments Platelet (test code = Platelet) 241 133-450 [facility] CenterFqryiifMUKJNGPFXJ9393-93-04 22:53:19 Test Item Value Reference Range Interpretation Comments MPV (test code = MPV) 9.3 7.4-10.4 [facility] CenterOsnbwbeKZUDRTCNKY6804-52-00 22:53:19 Test Item Value Reference Range Interpretation Comments RDW (test code = RDW) 16.5 11.5-14.5 [facility] CenterYcqaejnJMLCABCIXF5982-57-66 22:53:19 Test Item Value Reference Range Interpretation Comments Hct (test code = Hct) 41.0 36.0-48.0 [facility] CenterJeecwaeQDVMZPNWWC4162-49-98 22:53:19 Test Item Value Reference Range Interpretation Comments Hgb (test code = Hgb) 12.7 12.0-16.0 [facility] CenterLzggsmcOKUGIUNYYH1780-42-40 22:53:19 Test Item Value Reference Range Interpretation Comments WBC (test code = WBC) 11.5 3.7-10.4 [facility] CenterPzalgraKLPKCPMKCF9640-87-27 22:53:19 Test Item Value Reference Range Interpretation Comments MCH (test code = MCH) 24.3 pg 27.0-31.0 [facility] CenterTmolpviUWUKDCJKIC5685-86-24 22:53:19 Test Item Value Reference Range Interpretation Comments MCHC (test code = MCHC) 31.0 32.0-36.0 [facility] CenterItqlfpiFCBJWMBWOX7605-82-94 22:53:19 Test Item Value Reference Range Interpretation Comments MCV (test code = MCV) 78.4 80.0-98.0 [facility] NZPNQ7713-54-62 22:53:19 Test Item Value Reference Range Interpretation Comments FTI (test code = FTI) 2.5 [facility]TH[facility] XELPK1558-05-88 22:53:19 Test Item Value Reference Range Interpretation Comments TSH (test code = TSH) 1.540 0.360-3.740 [facility]TH[facility] EWHAF3211-18-04 22:53:19 Test Item Value Reference Range Interpretation Comments T3 Uptake (test code = T3 Uptake) 31 31-39 [facility] [id number] 22:53:19 Test Item Value Reference Range Interpretation Comments T4 (test code = T4) 8.0 4.7-13.3 [facility]2015-10-09 22:53:19 Test Item Value Reference Range Interpretation Comments Transferrin (test code = Transferrin) 256 212-360 [facility]2015-10-09 22:53:19 Test Item Value Reference Range Interpretation Comments Vitamin B12 Lvl (test code = Vitamin [phone] B12 Lvl) [facility]2015-10-09 22:53:19 Test Item Value Reference Range Interpretation Comments eGFR (test code = eGFR) 70 [facility]2015-10-09 22:53:19 Test Item Value Reference Range Interpretation Comments Glucose Lvl (test code = Glucose Lvl) 103 70-99 [facility]2015-10-09 22:53:19 Test Item Value Reference Range Interpretation Comments Albumin Lvl (test code = Albumin Lvl) 3.6 3.5-5.0 [facility]2015-10-09 22:53:19 Test Item Value Reference Range Interpretation Comments CO2 (test code = CO2) 24 24-32 [facility]2015-10-09 22:53:19 Test Item Value Reference Range Interpretation Comments Total Protein (test code = Total 7.2 6.4-8.4 Protein) [facility]2015-10-09 22:53:19 Test Item Value Reference Range Interpretation Comments Creatinine Lvl (test code = Creatinine 1.1 0.5-1.4 Lvl) [facility]2015-10-09 22:53:19 Test Item Value Reference Range Interpretation Comments BUN (test code = BUN) 14 7-22 [facility]2015-10-09 22:53:19 Test Item Value Reference Range Interpretation Comments AST (test code = AST) 12 See_Comment [Auto mated message] The system which ge nerated this result transmit arvind reference range : <=37. The reference range was not used to interpr et this result as mario l/abnormal. [facility] [facility]19 Test Item Value Reference Range Interpretation Comments ALT (test code = ALT) 41 See_Comment [Auto mated message] The system which ge nerated this result transmit arvind reference range : <=65. The reference range was not used to interpr et this result as mario l/abnormal. [place] 610125-10-09 22:53:19 Test Item Value Reference Range Interpretation Comments Alk Phos (test code = Alk Phos) 100 39-136 [facility]2015-10-09 22:53:19 Test Item Value Reference Range Interpretation Comments Bili Total (test code = Bili Total) 0.2 0.2-1.3 [facility]2015-10-09 22:53:19 Test Item Value Reference Range Interpretation Comments Potassium Lvl (test code = Potassium 3.9 3.5-5.1 Lvl) [facility]2015-10-09 22:53:19 Test Item Value Reference Range Interpretation Comments Sodium Lvl (test code = Sodium Lvl) 141 135-145 [facility]2015-10-09 22:53:19 Test Item Value Reference Range Interpretation Comments Calcium Lvl (test code = Calcium Lvl) 9.0 8.5-10.5 [facility]2015-10-09 22:53:19 Test Item Value Reference Range Interpretation Comments Chloride Lvl (test code = Chloride Lvl) 109 95-109 [facility]2015-10-09 22:53:19 Test Item Value Reference Range Interpretation Comments AGAP (test code = AGAP) 11.9 10.0-20.0 [facility]2015-10-09 22:53:19 Test Item Value Reference Range Interpretation Comments A/G Ratio (test code = A/G Ratio) 1.0 0.7-1.6 [facility]2015-10-09 22:53:19 Test Item Value Reference Range Interpretation Comments B/C Ratio (test code = B/C Ratio) 13 6-25 [facility]2015-10-09 22:53:19 Test Item Value Reference Range Interpretation Comments Globulin (test code = Globulin) 3.6 2.0-4.0 [facility]2015-10-09 22:53:19 Test Item Value Reference Range Interpretation Comments Magnesium Lvl (test code = Magnesium 1.8 1.8-2.4 Lvl) [facility]FlgipjnLWPFNDGCRN1750-[facility] 22:53:19 Test Item Value Reference Range Interpretation Comments Segs (test code = Segs) 57.5 45.0-75.0 [facility] CenterOrqqbgeZUOMLJUURQ7920-63-56 22:53:19 Test Item Value Reference Range Interpretation Comments Monocytes (test code = Monocytes) 7.6 2.0-12.0 [facility] CenterBfiewpbUWMASBTIRA8418-07-63 22:53:19 Test Item Value Reference Range Interpretation Comments Basophils (test code = 1.0 See_Comment [Aut omated message] The Basophils) system which ge nerated this result tra nsmitted reference range : <=1.0. The reference r kat was not used to int erpret this result as normal/abnormal . [facility] CenterZrndyrjWNNZBUMTNJ3318-08-43 22:53:19 Test Item Value Reference Range Interpretation Comments Lymphocytes (test code = Lymphocytes) 32.9 20.0-40.0 [facility] CenterAzhvoasAHCAFRQDZL2389-05-55 22:53:19 Test Item Value Reference Range Interpretation Comments Eosinophils (test code = 1.0 See_Comment [A utomated message] The Eosinophils) system which ge nerated this result tra nsmitted reference range : <=4.0. The reference r kat was not used to int erpret this result as normal/abnormal . [facility] CenterZlvafhfROQFCYCSGV5500-53-59 22:53:19 Test Item Value Reference Range Interpretation Comments Lymphocytes # (test code = Lymphocytes 3.8 1.0-5.5 #) [facility] CenterCsgaorpITSCFFMQEW8195-82-39 22:53:19 Test Item Value Reference Range Interpretation Comments Segs-Bands # (test code = Segs-Bands #) 6.6 1.5-8.1 [facility] CenterQebkjzlVBWBWPQEEW2102-85-52 22:53:19 Test Item Value Reference Range Interpretation Comments Eosinophils # (test code 0.1 See_Comment [A utomated message] The = Eosinophils #) system whic h generated this result tra nsmitted reference range : <=0.5. The reference r kat was not used to int erpret this result as normal/abnormal . [facility] CenterPqrkmkbGZBMEVCDBM8492-76-40 22:53:19 Test Item Value Reference Range Interpretation Comments Monocytes # (test code 0.9 See_Comment [Aut omated message] The = Monocytes #) system which generated this result tra nsmitted reference range : <=0.8. The reference r kat was not used to int erpret this result as normal/abnormal . [facility] CenterUhusxyySRIBBWQGSF3176-59-81 22:53:19 Test Item Value Reference Range Interpretation Comments Microcyte (test code = 1+ *ABN*(06/07/15 Microcyte) 5:53 PM) [facility] CenterJhjjjfrSPGKXHHIWP2158-18-94 22:53:19 Test Item Value Reference Range Interpretation Comments Basophils # (test code 0.1 See_Comment [Aut omated message] The = Basophils #) system which generated this result tra nsmitted reference range : <=0.2. The reference r kat was not used to int erpret this result as normal/abnormal . [facility] CenterSdgvgngTTGOHPDHPM3667-36-14 22:53:19 Test Item Value Reference Range Interpretation Comments RBC (test code = RBC) 5.23 4.20-5.40 [facility] CenterQvmtbjeOJBUFFOZKG2019-95-94 22:53:19 Test Item Value Reference Range Interpretation Comments Platelet (test code = Platelet) 241 133-450 [facility] CenterQxbgkgzSNZAGXFVOC8754-59-54 22:53:19 Test Item Value Reference Range Interpretation Comments MPV (test code = MPV) 9.3 7.4-10.4 [facility] CenterHoqsjkcCOSGGHTXJC3125-28-69 22:53:19 Test Item Value Reference Range Interpretation Comments RDW (test code = RDW) 16.5 11.5-14.5 [facility] CenterSwebqmuOUUKTACEAY1781-82-15 22:53:19 Test Item Value Reference Range Interpretation Comments Hct (test code = Hct) 41.0 36.0-48.0 [facility] CenterJzogwkgXXYUCLJJAY8571-22-68 22:53:19 Test Item Value Reference Range Interpretation Comments Hgb (test code = Hgb) 12.7 12.0-16.0 [facility] CenterNkspfnrSBSCUOCNQP0203-73-80 22:53:19 Test Item Value Reference Range Interpretation Comments WBC (test code = WBC) 11.5 3.7-10.4 [facility] CenterKksxkqbVOOMYCMWXT9125-33-94 22:53:19 Test Item Value Reference Range Interpretation Comments MCH (test code = MCH) 24.3 pg 27.0-31.0 [facility] CenterQbmozwnXTQNKHQDVZ2822-65-58 22:53:19 Test Item Value Reference Range Interpretation Comments MCHC (test code = MCHC) 31.0 32.0-36.0 [facility] CenterGohtwafVTYDILAHVY5341-76-49 22:53:19 Test Item Value Reference Range Interpretation Comments MCV (test code = MCV) 78.4 80.0-98.0 [facility]2015-10-09 22:53:19 Test Item Value Reference Range Interpretation Comments FTI (test code = FTI) 2.5 [facility]2015-10-09 22:53:19 Test Item Value Reference Range Interpretation Comments TSH (test code = TSH) 1.540 0.360-3.740 [facility]2015-10-09 22:53:19 Test Item Value Reference Range Interpretation Comments T3 Uptake (test code = T3 Uptake) 31 31-39 [facility]2015-10-09 22:53:19 Test Item Value Reference Range Interpretation Comments T4 (test code = T4) 8.0 4.7-13.3 [facility]2015-10-09 22:53:19 Test Item Value Reference Range Interpretation Comments Transferrin (test code = Transferrin) 256 212-360 [facility]2015-10-09 22:53:19 Test Item Value Reference Range Interpretation Comments Vitamin B12 Lvl (test code = Vitamin 639 592-3920 B12 Lvl) [facility]2015-10-09 22:53:19 Test Item Value Reference Range Interpretation Comments eGFR (test code = eGFR) 70 [facility]2015-10-09 22:53:19 Test Item Value Reference Range Interpretation Comments Glucose Lvl (test code = Glucose Lvl) 103 70-99 [facility]2015-10-09 22:53:19 Test Item Value Reference Range Interpretation Comments Albumin Lvl (test code = Albumin Lvl) 3.6 3.5-5.0 [facility]2015-10-09 22:53:19 Test Item Value Reference Range Interpretation Comments CO2 (test code = CO2) 24 24-32 [facility]2015-10-09 22:53:19 Test Item Value Reference Range Interpretation Comments Total Protein (test code = Total 7.2 6.4-8.4 Protein) [facility]2015-10-09 22:53:19 Test Item Value Reference Range Interpretation Comments Creatinine Lvl (test code = Creatinine 1.1 0.5-1.4 Lvl) [facility]2015-10-09 22:53:19 Test Item Value Reference Range Interpretation Comments BUN (test code = BUN) 14 7-22 [facility]2015-10-09 22:53:19 Test Item Value Reference Range Interpretation Comments AST (test code = AST) 12 See_Comment [Auto mated message] The system which ge nerated this result transmit arvind reference range : <=37. The reference range was not used to interpr et this result as mario l/abnormal. [facility]2015-10-09 22:53:19 Test Item Value Reference Range Interpretation Comments ALT (test code = ALT) 41 See_Comment [Auto mated message] The system which ge nerated this result transmit arvind reference range : <=65. The reference range was not used to interpr et this result as mario l/abnormal. [facility]2015-10-09 22:53:19 Test Item Value Reference Range Interpretation Comments Alk Phos (test code = Alk Phos) 100 39-136 [facility]2015-10-09 22:53:19 Test Item Value Reference Range Interpretation Comments Bili Total (test code = Bili Total) 0.2 0.2-1.3 [facility]2015-10-09 22:53:19 Test Item Value Reference Range Interpretation Comments Potassium Lvl (test code = Potassium 3.9 3.5-5.1 Lvl) [facility]2015-10-09 22:53:19 Test Item Value Reference Range Interpretation Comments Sodium Lvl (test code = Sodium Lvl) 141 135-145 [facility]2015-10-09 22:53:19 Test Item Value Reference Range Interpretation Comments Calcium Lvl (test code = Calcium Lvl) 9.0 8.5-10.5 [facility]2015-10-09 22:53:19 Test Item Value Reference Range Interpretation Comments Chloride Lvl (test code = Chloride Lvl) 109 95-109 [facility]2015-10-09 22:53:19 Test Item Value Reference Range Interpretation Comments AGAP (test code = AGAP) 11.9 10.0-20.0 [facility]2015-10-09 22:53:19 Test Item Value Reference Range Interpretation Comments A/G Ratio (test code = A/G Ratio) 1.0 0.7-1.6 [facility]2015-10-09 22:53:19 Test Item Value Reference Range Interpretation Comments B/C Ratio (test code = B/C Ratio) 13 6-25 [facility]2015-10-09 22:53:19 Test Item Value Reference Range Interpretation Comments Globulin (test code = Globulin) 3.6 2.0-4.0 [facility]2015-10-09 22:53:19 Test Item Value Reference Range Interpretation Comments Magnesium Lvl (test code = Magnesium 1.8 1.8-2.4 Lvl) [facility] CenterJmovxqvUKZTTVWTUX4201-99-38 22:53:19 Test Item Value Reference Range Interpretation Comments Segs (test code = Segs) 57.5 45.0-75.0 [facility] CenterSzvtlrwBSGWXIVIQQ7053-23-21 22:53:19 Test Item Value Reference Range Interpretation Comments Monocytes (test code = Monocytes) 7.6 2.0-12.0 [facility] CenterNdphlviHGQBHEGYWN1550-91-63 22:53:19 Test Item Value Reference Range Interpretation Comments Basophils (test code = 1.0 See_Comment [Aut omated message] The Basophils) system which ge nerated this result tra nsmitted reference range : <=1.0. The reference r kat was not used to int erpret this result as normal/abnormal . [facility] CenterZyamroyWLZLYFSLFD5594-92-74 22:53:19 Test Item Value Reference Range Interpretation Comments Lymphocytes (test code = Lymphocytes) 32.9 20.0-40.0 [facility] CenterSsnzyyjADQYAOUHQI6304-79-87 22:53:19 Test Item Value Reference Range Interpretation Comments Eosinophils (test code = 1.0 See_Comment [A utomated message] The Eosinophils) system which ge nerated this result tra nsmitted reference range : <=4.0. The reference r kat was not used to int erpret this result as normal/abnormal . [facility] CenterGojptzvHJWDOWCFAD3767-42-97 22:53:19 Test Item Value Reference Range Interpretation Comments Lymphocytes # (test code = Lymphocytes 3.8 1.0-5.5 #) [facility] CenterWzcbqkqQFNDDQAZUB5565-30-29 22:53:19 Test Item Value Reference Range Interpretation Comments Segs-Bands # (test code = Segs-Bands #) 6.6 1.5-8.1 [facility] CenterHpeakhfFPPGGTYYEN4567-22-33 22:53:19 Test Item Value Reference Range Interpretation Comments Eosinophils # (test code 0.1 See_Comment [A utomated message] The = Eosinophils #) system whic h generated this result tra nsmitted reference range : <=0.5. The reference r kat was not used to int erpret this result as normal/abnormal . [facility] CenterEvoespuGXWOZQQPGH9311-15-84 22:53:19 Test Item Value Reference Range Interpretation Comments Monocytes # (test code 0.9 See_Comment [Aut omated message] The = Monocytes #) system which generated this result tra nsmitted reference range : <=0.8. The reference r kat was not used to int erpret this result as normal/abnormal . [facility] CenterCbektndMYZSBKPLMA4716-05-54 22:53:19 Test Item Value Reference Range Interpretation Comments Microcyte (test code = 1+ *ABN*(06/07/15 Microcyte) 5:53 PM) [facility] CenterNysrbuzESPJRODOCY6973-86-74 22:53:19 Test Item Value Reference Range Interpretation Comments Basophils # (test code 0.1 See_Comment [Aut omated message] The = Basophils #) system which generated this result tra nsmitted reference range : <=0.2. The reference r kat was not used to int erpret this result as normal/abnormal . [facility] CenterKwhhuesMQQVXMVEUP4298-98-17 22:53:19 Test Item Value Reference Range Interpretation Comments RBC (test code = RBC) 5.23 4.20-5.40 [facility] CenterXufegvcQJQEHTLJZX5716-93-14 22:53:19 Test Item Value Reference Range Interpretation Comments Platelet (test code = Platelet) 241 133-450 [facility] CenterPhxwzpkUNQEEXVPLS1749-32-86 22:53:19 Test Item Value Reference Range Interpretation Comments MPV (test code = MPV) 9.3 7.4-10.4 [facility] CenterLplhtndFXRWFNGZXA6787-32-89 22:53:19 Test Item Value Reference Range Interpretation Comments RDW (test code = RDW) 16.5 11.5-14.5 [facility] CenterOboyrnvHDNBDBHEYS8943-39-69 22:53:19 Test Item Value Reference Range Interpretation Comments Hct (test code = Hct) 41.0 36.0-48.0 [facility] CenterVrtycrsEABDRPNZYH3464-50-30 22:53:19 Test Item Value Reference Range Interpretation Comments Hgb (test code = Hgb) 12.7 12.0-16.0 [facility] CenterJcazrevTGCEHQCSKW3609-63-60 22:53:19 Test Item Value Reference Range Interpretation Comments WBC (test code = WBC) 11.5 3.7-10.4 [facility] CenterMzdycywDEXWCIJMSV2475-49-43 22:53:19 Test Item Value Reference Range Interpretation Comments MCH (test code = MCH) 24.3 pg 27.0-31.0 [facility] CenterQbtohxvMRASSIHVAU7815-00-01 22:53:19 Test Item Value Reference Range Interpretation Comments MCHC (test code = MCHC) 31.0 32.0-36.0 [facility] CenterXjzbewwDFXBONGGSV9543-15-46 22:53:19 Test Item Value Reference Range Interpretation Comments MCV (test code = MCV) 78.4 80.0-98.0 [facility]2015-10-09 22:53:19 Test Item Value Reference Range Interpretation Comments FTI (test code = FTI) 2.5 [facility]2015-10-09 22:53:19 Test Item Value Reference Range Interpretation Comments TSH (test code = TSH) 1.540 0.360-3.740 [facility]2015-10-09 22:53:19 Test Item Value Reference Range Interpretation Comments T3 Uptake (test code = T3 Uptake) 31 31-39 [facility]2015-10-09 22:53:19 Test Item Value Reference Range Interpretation Comments T4 (test code = T4) 8.0 4.7-13.3 [facility]2015-10-09 22:53:19 Test Item Value Reference Range Interpretation Comments Transferrin (test code = Transferrin) 256 212-360 [facility]2015-10-09 22:53:19 Test Item Value Reference Range Interpretation Comments Vitamin B12 Lvl (test code = Vitamin [phone] B12 Lvl) [facility]2015-10-09 22:53:19 Test Item Value Reference Range Interpretation Comments eGFR (test code = eGFR) 70 [facility]2015-10-09 22:53:19 Test Item Value Reference Range Interpretation Comments Glucose Lvl (test code = Glucose Lvl) 103 70-99 [facility]2015-10-09 22:53:19 Test Item Value Reference Range Interpretation Comments Albumin Lvl (test code = Albumin Lvl) 3.6 3.5-5.0 [facility]2015-10-09 22:53:19 Test Item Value Reference Range Interpretation Comments CO2 (test code = CO2) 24 24-32 [facility]2015-10-09 22:53:19 Test Item Value Reference Range Interpretation Comments Total Protein (test code = Total 7.2 6.4-8.4 Protein) [facility]2015-10-09 22:53:19 Test Item Value Reference Range Interpretation Comments Creatinine Lvl (test code = Creatinine 1.1 0.5-1.4 Lvl) [facility]2015-10-09 22:53:19 Test Item Value Reference Range Interpretation Comments BUN (test code = BUN) 14 7-22 [facility]2015-10-09 22:53:19 Test Item Value Reference Range Interpretation Comments AST (test code = AST) 12 See_Comment [Auto mated message] The system which ge nerated this result transmit arvind reference range : <=37. The reference range was not used to interpr et this result as mario l/abnormal. [facility]2015-10-09 22:53:19 Test Item Value Reference Range Interpretation Comments ALT (test code = ALT) 41 See_Comment [Auto mated message] The system which ge nerated this result transmit arvind reference range : <=65. The reference range was not used to interpr et this result as mario l/abnormal. [facility]2015-10-09 22:53:19 Test Item Value Reference Range Interpretation Comments Alk Phos (test code = Alk Phos) 100 39-136 [facility]2015-10-09 22:53:19 Test Item Value Reference Range Interpretation Comments Bili Total (test code = Bili Total) 0.2 0.2-1.3 [facility]2015-10-09 22:53:19 Test Item Value Reference Range Interpretation Comments Potassium Lvl (test code = Potassium 3.9 3.5-5.1 Lvl) [facility]2015-10-09 22:53:19 Test Item Value Reference Range Interpretation Comments Sodium Lvl (test code = Sodium Lvl) 141 135-145 [facility]2015-10-09 22:53:19 Test Item Value Reference Range Interpretation Comments Calcium Lvl (test code = Calcium Lvl) 9.0 8.5-10.5 [facility]2015-10-09 22:53:19 Test Item Value Reference Range Interpretation Comments Chloride Lvl (test code = Chloride Lvl) 109 95-109 [facility]2015-10-09 22:53:19 Test Item Value Reference Range Interpretation Comments AGAP (test code = AGAP) 11.9 10.0-20.0 [facility]2015-10-09 22:53:19 Test Item Value Reference Range Interpretation Comments A/G Ratio (test code = A/G Ratio) 1.0 0.7-1.6 [facility]2015-10-09 22:53:19 Test Item Value Reference Range Interpretation Comments B/C Ratio (test code = B/C Ratio) 13 6-25 [facility]2015-10-09 22:53:19 Test Item Value Reference Range Interpretation Comments Globulin (test code = Globulin) 3.6 2.0-4.0 [facility]2015-10-09 22:53:19 Test Item Value Reference Range Interpretation Comments Magnesium Lvl (test code = Magnesium 1.8 1.8-2.4 Lvl) [facility] CenterGfhejazCYFMBAFPWB6915-06-90 22:53:19 Test Item Value Reference Range Interpretation Comments Segs (test code = Segs) 57.5 45.0-75.0 [facility] CenterDxsvsluKHKGLRSYNV1840-88-09 22:53:19 Test Item Value Reference Range Interpretation Comments Monocytes (test code = Monocytes) 7.6 2.0-12.0 [facility] CenterObwqgzxLWTLLMQRMM4388-52-42 22:53:19 Test Item Value Reference Range Interpretation Comments Basophils (test code = 1.0 See_Comment [Aut omated message] The Basophils) system which ge nerated this result tra nsmitted reference range : <=1.0. The reference r kat was not used to int erpret this result as normal/abnormal . [facility] CenterCnawxvdWKUCNSTNJL2590-82-49 22:53:19 Test Item Value Reference Range Interpretation Comments Lymphocytes (test code = Lymphocytes) 32.9 20.0-40.0 [facility] CenterPspfaoeKLAUBFTGTE6467-99-00 22:53:19 Test Item Value Reference Range Interpretation Comments Eosinophils (test code = 1.0 See_Comment [A utomated message] The Eosinophils) system which ge nerated this result tra nsmitted reference range : <=4.0. The reference r kat was not used to int erpret this result as normal/abnormal . [facility] CenterCqqpazgGZSJRWWPYE3278-41-37 22:53:19 Test Item Value Reference Range Interpretation Comments Lymphocytes # (test code = Lymphocytes 3.8 1.0-5.5 #) [facility] CenterOwoesbjHPJWUGPYEN1500-37-13 22:53:19 Test Item Value Reference Range Interpretation Comments Segs-Bands # (test code = Segs-Bands #) 6.6 1.5-8.1 [facility] CenterZtdiplqPZPOLGGXWT8749-96-68 22:53:19 Test Item Value Reference Range Interpretation Comments Eosinophils # (test code 0.1 See_Comment [A utomated message] The = Eosinophils #) [facility] generated this result tra nsmitted reference range : <=0.5. The reference r kat was not used to int erpret this result as normal/abnormal . [facility] CenterLuvkxarFPUOKTPQNP8114-01-29 22:53:19 Test Item Value Reference Range Interpretation Comments Monocytes # (test code 0.9 See_Comment [Aut omated message] The = Monocytes #) system which generated this result tra nsmitted reference range : <=0.8. The reference r kat was not used to int erpret this result as normal/abnormal . [facility] CenterErwcdbfXOFZQFVJOB5070-81-51 22:53:19 Test Item Value Reference Range Interpretation Comments Microcyte (test code = 1+ *ABN*(06/07/15 Microcyte) 5:53 PM) [facility] CenterIlwgayyMBOATFPAOL3571-53-47 22:53:19 Test Item Value Reference Range Interpretation Comments Basophils # (test code 0.1 See_Comment [Aut omated message] The = Basophils #) system which generated this result tra nsmitted reference range : <=0.2. The reference r kat was not used to int erpret this result as normal/abnormal . [facility] [id number] 22:53:19 Test Item Value Reference Range Interpretation Comments RBC (test code = RBC) 5.23 4.20-5.40 [id number] 22:53:19 Test Item Value Reference Range Interpretation Comments Platelet (test code = Platelet) 241 133-450 [facility] CenterLjqcmsxUKEIGFULMX0115-82-93 22:53:19 Test Item Value Reference Range Interpretation Comments MPV (test code = MPV) 9.3 7.4-10.4 [facility] CenterNwgvubjKVWNFSAVXF3344-95-27 22:53:19 Test Item Value Reference Range Interpretation Comments RDW (test code = RDW) 16.5 11.5-14.5 [facility] CenterLwrulhkRJJYILPQFO5844-35-08 22:53:19 Test Item Value Reference Range Interpretation Comments Hct (test code = Hct) 41.0 36.0-48.0 [facility] CenterWvlhngkPDXFDCFUQZ4491-06-53 22:53:19 Test Item Value Reference Range Interpretation Comments Hgb (test code = Hgb) 12.7 12.0-16.0 [facility] CenterKymohgrVJDDJXWXLT3745-78-96 22:53:19 Test Item Value Reference Range Interpretation Comments WBC (test code = WBC) 11.5 3.7-10.4 [facility] CenterTkjpmodXIUTPDGFBV1589-42-45 22:53:19 Test Item Value Reference Range Interpretation Comments MCH (test code = MCH) 24.3 pg 27.0-31.0 [facility] CenterFgqxsroXLJDGCOEOJ1465-01-62 22:53:19 Test Item Value Reference Range Interpretation Comments MCHC (test code = MCHC) 31.0 32.0-36.0 [facility] CenterKoslvaaOHNTGHLLYM4952-74-71 22:53:19 Test Item Value Reference Range Interpretation Comments MCV (test code = MCV) 78.4 80.0-98.0 [facility] [id number] 22:53:19 Test Item Value Reference Range Interpretation Comments FTI (test code = FTI) 2.5 [facility] [id number] 22:53:19 Test Item Value Reference Range Interpretation Comments TSH (test code = TSH) 1.540 0.360-3.740 [facility] [id number] 22:53:19 Test Item Value Reference Range Interpretation Comments T3 Uptake (test code = T3 Uptake) 31 31-39 [facility] [id number] 22:53:19 Test Item Value Reference Range Interpretation Comments T4 (test code = T4) 8.0 4.7-13.3 [facility]2015-10-09 22:53:19 Test Item Value Reference Range Interpretation Comments Transferrin (test code = Transferrin) 256 212-360 [facility]2015-10-09 22:53:19 Test Item Value Reference Range Interpretation Comments Vitamin B12 Lvl (test code = Vitamin 070 524-8795 B12 Lvl) [facility]2015-10-09 22:53:19 Test Item Value Reference Range Interpretation Comments eGFR (test code = eGFR) 70 [facility]2015-10-09 22:53:19 Test Item Value Reference Range Interpretation Comments Glucose Lvl (test code = Glucose Lvl) 103 70-99 [facility]2015-10-09 22:53:19 Test Item Value Reference Range Interpretation Comments Albumin Lvl (test code = Albumin Lvl) 3.6 3.5-5.0 [facility]2015-10-09 22:53:19 Test Item Value Reference Range Interpretation Comments CO2 (test code = CO2) 24 24-32 [facility]2015-10-09 22:53:19 Test Item Value Reference Range Interpretation Comments Total Protein (test code = Total 7.2 6.4-8.4 Protein) [facility]2015-10-09 22:53:19 Test Item Value Reference Range Interpretation Comments Creatinine Lvl (test code = Creatinine 1.1 0.5-1.4 Lvl) [facility]2015-10-09 22:53:19 Test Item Value Reference Range Interpretation Comments BUN (test code = BUN) 14 7-22 [facility]2015-10-09 22:53:19 Test Item Value Reference Range Interpretation Comments AST (test code = AST) 12 See_Comment [Auto mated message] The system which ge nerated this result transmit arvind reference range : <=37. The reference range was not used to interpr et this result as mario l/abnormal. [facility]2015-10-09 22:53:19 Test Item Value Reference Range Interpretation Comments ALT (test code = ALT) 41 See_Comment [Auto mated message] The system which ge nerated this result transmit arvind reference range : <=65. The reference range was not used to interpr et this result as mario l/abnormal. [facility]2015-10-09 22:53:19 Test Item Value Reference Range Interpretation Comments Alk Phos (test code = Alk Phos) 100 39-136 [facility]2015-10-09 22:53:19 Test Item Value Reference Range Interpretation Comments Bili Total (test code = Bili Total) 0.2 0.2-1.3 [facility]2015-10-09 22:53:19 Test Item Value Reference Range Interpretation Comments Potassium Lvl (test code = Potassium 3.9 3.5-5.1 Lvl) [facility]2015-10-09 22:53:19 Test Item Value Reference Range Interpretation Comments Sodium Lvl (test code = Sodium Lvl) 141 135-145 [facility]2015-10-09 22:53:19 Test Item Value Reference Range Interpretation Comments Calcium Lvl (test code = Calcium Lvl) 9.0 8.5-10.5 [facility]2015-10-09 22:53:19 Test Item Value Reference Range Interpretation Comments Chloride Lvl (test code = Chloride Lvl) 109 95-109 [facility]2015-10-09 22:53:19 Test Item Value Reference Range Interpretation Comments AGAP (test code = AGAP) 11.9 10.0-20.0 [facility]2015-10-09 22:53:19 Test Item Value Reference Range Interpretation Comments A/G Ratio (test code = A/G Ratio) 1.0 0.7-1.6 [facility]2015-10-09 22:53:19 Test Item Value Reference Range Interpretation Comments B/C Ratio (test code = B/C Ratio) 13 6-25 [facility]2015-10-09 22:53:19 Test Item Value Reference Range Interpretation Comments Globulin (test code = Globulin) 3.6 2.0-4.0 [facility]2015-10-09 22:53:19 Test Item Value Reference Range Interpretation Comments Magnesium Lvl (test code = Magnesium 1.8 1.8-2.4 Lvl) [facility] CenterUjyuhpzJFHVBTEJAW9464-69-18 22:53:19 Test Item Value Reference Range Interpretation Comments Segs (test code = Segs) 57.5 45.0-75.0 [facility] CenterLdeghbeMPISKMZPSZ4724-66-52 22:53:19 Test Item Value Reference Range Interpretation Comments Monocytes (test code = Monocytes) 7.6 2.0-12.0 [facility] [id number] 22:53:19 Test Item Value Reference Range Interpretation Comments Basophils (test code = 1.0 See_Comment [Aut omated message] The Basophils) system which ge nerated this result tra nsmitted reference range : <=1.0. The reference r kat was not used to int erpret this result as normal/abnormal . [facility] CenterBgzvdxqXQJDIPVLTY2459-55-03 22:53:19 Test Item Value Reference Range Interpretation Comments Lymphocytes (test code = Lymphocytes) 32.9 20.0-40.0 [facility] CenterNgrssjbORMWYDAFVS6537-03-34 22:53:19 Test Item Value Reference Range Interpretation Comments Eosinophils (test code = 1.0 See_Comment [A utomated message] The Eosinophils) system which ge nerated this result tra nsmitted reference range : <=4.0. The reference r kat was not used to int erpret this result as normal/abnormal . [facility] CenterMejnnsnCKAMXRXUMN4787-49-97 22:53:19 Test Item Value Reference Range Interpretation Comments Lymphocytes # (test code = Lymphocytes 3.8 1.0-5.5 #) [facility] CenterIgwepakREVAWMZEXC7301-43-73 22:53:19 Test Item Value Reference Range Interpretation Comments Segs-Bands # (test code = Segs-Bands #) 6.6 1.5-8.1 [facility] CenterXpmvjblENDARBJYBU4743-84-67 22:53:19 Test Item Value Reference Range Interpretation Comments Eosinophils # (test code 0.1 See_Comment [A utomated message] The = Eosinophils #) system whic h generated this result tra nsmitted reference range : <=0.5. The reference r kat was not used to int erpret this result as normal/abnormal . [facility] CenterHqxwupqAKRGQFAISA4310-53-53 22:53:19 Test Item Value Reference Range Interpretation Comments Monocytes # (test code 0.9 See_Comment [Aut omated message] The = Monocytes #) system which generated this result tra nsmitted reference range : <=0.8. The reference r kat was not used to int erpret this result as normal/abnormal . [facility] CenterWpxiiqhXTKGNMBZUL9861-82-02 22:53:19 Test Item Value Reference Range Interpretation Comments Microcyte (test code = 1+ *ABN*(06/07/15 Microcyte) 5:53 PM) [facility] [id number] 22:53:19 Test Item Value Reference Range Interpretation Comments Basophils # (test code 0.1 See_Comment [Aut omated message] The = Basophils #) system which generated this result tra nsmitted reference range : <=0.2. The reference r kat was not used to int erpret this result as normal/abnormal . [facility] CenterDgmxxmyJLQAYVSQMD5052-84-06 22:53:19 Test Item Value Reference Range Interpretation Comments RBC (test code = RBC) 5.23 4.20-5.40 [facility] CenterZmupvvgYOAMIVKDVT4080-38-32 22:53:19 Test Item Value Reference Range Interpretation Comments Platelet (test code = Platelet) 241 133-450 [facility] CenterGxrjnomAKNZXGLKGT1164-25-65 22:53:19 Test Item Value Reference Range Interpretation Comments MPV (test code = MPV) 9.3 7.4-10.4 [facility] CenterMxgycpaOTRAQDMUBF1023-07-02 22:53:19 Test Item Value Reference Range Interpretation Comments RDW (test code = RDW) 16.5 11.5-14.5 [facility] CenterCkykovkIQUTSPITKN4085-24-06 22:53:19 Test Item Value Reference Range Interpretation Comments Hct (test code = Hct) 41.0 36.0-48.0 [facility] CenterRodgkcaTNLJYNWAKF3430-75-60 22:53:19 Test Item Value Reference Range Interpretation Comments Hgb (test code = Hgb) 12.7 12.0-16.0 [facility] CenterYgtflaoMERGMALAXQ4428-66-36 22:53:19 Test Item Value Reference Range Interpretation Comments WBC (test code = WBC) 11.5 3.7-10.4 [facility] CenterIchtugrKCQURDBDOA6626-83-15 22:53:19 Test Item Value Reference Range Interpretation Comments MCH (test code = MCH) 24.3 pg 27.0-31.0 [facility] CenterYijahxeOQTKTPUFDI6158-14-38 22:53:19 Test Item Value Reference Range Interpretation Comments MCHC (test code = MCHC) 31.0 32.0-36.0 [facility]HregnbxAJGPTDSKEU0276-61-68 22:53:19 Test Item Value Reference Range Interpretation Comments MCV (test code = MCV) 78.4 80.0-98.0 [facility]2015-10-09 22:53:19 Test Item Value Reference Range Interpretation Comments FTI (test code = FTI) 2.5 [facility]2015-10-09 22:53:19 Test Item Value Reference Range Interpretation Comments TSH (test code = TSH) 1.540 0.360-3.740 [facility]2015-10-09 22:53:19 Test Item Value Reference Range Interpretation Comments T3 Uptake (test code = T3 Uptake) 31 31-39 [facility]2015-10-09 22:53:19 Test Item Value Reference Range Interpretation Comments T4 (test code = T4) 8.0 4.7-13.3 [facility]2015-10-09 22:53:19 Test Item Value Reference Range Interpretation Comments Transferrin (test code = Transferrin) 256 212-360 [facility]2015-10-09 22:53:19 Test Item Value Reference Range Interpretation Comments Vitamin B12 Lvl (test code = Vitamin [phone] B12 Lvl) [facility]2015-10-09 22:53:19 Test Item Value Reference Range Interpretation Comments eGFR (test code = eGFR) 70 [facility]2015-10-09 22:53:19 Test Item Value Reference Range Interpretation Comments Glucose Lvl (test code = Glucose Lvl) 103 70-99 [facility]2015-10-09 22:53:19 Test Item Value Reference Range Interpretation Comments Albumin Lvl (test code = Albumin Lvl) 3.6 3.5-5.0 [facility]2015-10-09 22:53:19 Test Item Value Reference Range Interpretation Comments CO2 (test code = CO2) 24 24-32 [facility]2015-10-09 22:53:19 Test Item Value Reference Range Interpretation Comments Total Protein (test code = Total 7.2 6.4-8.4 Protein) [facility]2015-10-09 22:53:19 Test Item Value Reference Range Interpretation Comments Creatinine Lvl (test code = Creatinine 1.1 0.5-1.4 Lvl) [facility]2015-10-09 22:53:19 Test Item Value Reference Range Interpretation Comments BUN (test code = BUN) 14 7-22 [facility]2015-10-09 22:53:19 Test Item Value Reference Range Interpretation Comments AST (test code = AST) 12 See_Comment [Auto mated message] The system which ge nerated this result transmit arvind reference range : <=37. The reference range was not used to interpr et this result as mario l/abnormal. [facility]2015-10-09 22:53:19 Test Item Value Reference Range Interpretation Comments ALT (test code = ALT) 41 See_Comment [Auto mated message] The system which ge nerated this result transmit arvind reference range : <=65. The reference range was not used to interpr et this result as mario l/abnormal. [facility]2015-10-09 22:53:19 Test Item Value Reference Range Interpretation Comments Alk Phos (test code = Alk Phos) 100 39-136 [facility]2015-10-09 22:53:19 Test Item Value Reference Range Interpretation Comments Bili Total (test code = Bili Total) 0.2 0.2-1.3 [facility]2015-10-09 22:53:19 Test Item Value Reference Range Interpretation Comments Potassium Lvl (test code = Potassium 3.9 3.5-5.1 Lvl) [facility]2015-10-09 22:53:19 Test Item Value Reference Range Interpretation Comments Sodium Lvl (test code = Sodium Lvl) 141 135-145 [facility]2015-10-09 22:53:19 Test Item Value Reference Range Interpretation Comments Calcium Lvl (test code = Calcium Lvl) 9.0 8.5-10.5 [facility]2015-10-09 22:53:19 Test Item Value Reference Range Interpretation Comments Chloride Lvl (test code = Chloride Lvl) 109 95-109 [facility]2015-10-09 22:53:19 Test Item Value Reference Range Interpretation Comments AGAP (test code = AGAP) 11.9 10.0-20.0 [facility]CHE[facility] [id number] 22:53:19 Test Item Value Reference Range Interpretation Comments A/G Ratio (test code = A/G Ratio) 1.0 0.7-1.6 [facility] Notes Date/Time Note Provider Source 2022-03-18 PROCEDURE INFORMATION: [facility] 23:42:01-00:00 Exam: XR Chest Exam date and [...] Marques Davila MD On 03/18/2022 23:46:41; [id number] 2022-03-18 PROCEDURE INFORMATION: [facility] :42:01-00:00 Exam: XR Chest Exam date and time: [...] Marques Davila MD On 03/18/2022 23:46:41; [id number] 2022-03-18 PROCEDURE INFORMATION: [facility] 23:42:01-00:00 Exam: XR Chest Exam date and [...] Marques Davila MD On 03/18/2022 23:46:41; [id number] 2022-03-18 PROCEDURE INFORMATION: [facility] 23:42:01-00:00 Exam: XR Chest Exam date and [...] Marques Davila MD On 03/18/2022 23:46:41; [id number] 2022-03-18 PROCEDURE INFORMATION: [facility] 23:42:01-00:00 Exam: XR Chest Exam date and [...] Marques Davila MD On 03/18/2022 23:46:41; [id number] 2022-03-18 Radiation Dose CTDIVOL = 0 (mGy): DLP = 1045.3 ( mGy-cm) [facility] 22:50:05-00:00 PROCEDURE INFORMATION: Exam: CT Head Without [...] ality. Ashu Sifuentes MD On 03/18/2022 23:08:56; [id number] XK 2022-03-18 Radiation Dose CTDIVOL = 0 (mGy): DLP = 1045.3 ( mGy-cm) [facility] Dav 22:50:05-00:00 PROCEDURE INFORMATION: Exam: CT Head Without [...] ality. Ashu Sifuentes MD On 03/18/2022 23:08:56; [id number] XK 2022-03-18 Radiation Dose CTDIVOL = 0 (mGy): DLP = 1045.3 ( mGy-cm) [facility] 22:50:05-00:00 PROCEDURE INFORMATION: Exam: CT Head Without [...] ality. Ashu Sifuentes MD On 03/18/2022 23:08:56; [id number] XK 2022-03-18 Radiation Dose CTDIVOL = 0 (mGy): DLP = 1045.3 ( mGy-cm) [facility] 22:50:05-00:00 PROCEDURE INFORMATION: Exam: CT Head Without [...] ality. Ashu Sifuentes MD On 03/18/2022 23:08:56; [id number] XK 2022-03-18 Radiation Dose CTDIVOL = 0 (mGy): DLP = 1045.3 ( mGy-cm) [facility] 22:50:05-00:00 PROCEDURE INFORMATION: Exam: CT Head Without [...] ality. Ashu Sifuentes MD On 03/18/2022 23:08:56; [id number] XK 2022-03-13 PROCEDURE INFORMATION: [facility] 20:10:53-00:00 Exam: XR Chest Exam date and [...] umonia. Kanu Coleman MD On 03/13/2022 20:57:24; SHERLYTP [id number] 2022-03-13 PROCEDURE INFORMATION: [facility] 20::53-00:00 Exam: XR Chest Exam date and time: [...] umonia. Kanu Coleman MD On 03/13/2022 20:57:24; SHERLYTP [id number] 2022-03-13 PROCEDURE INFORMATION: [facility] 20:10:53-00:00 Exam: XR Chest Exam date and [...] umonia. Kanu Coleman MD On 03/13/2022 20:57:24; SHERLYTP [id number] 2022-03-13 PROCEDURE INFORMATION: [facility] ::53-00:00 Exam: XR Chest Exam date and time: [...] umonia. Kanu Coleman MD On 03/13/2022 20:57:24; SHERLYTP [id number] 2022-03-13 PROCEDURE INFORMATION: [facility] 20:10:53-00:00 Exam: XR Chest Exam date and [...] Kanu Coleman MD On 03/13/2022 20:57:24; ROXIE [id number] 2021-01-20 EXAM: XR RIGHT TIBIA 2 VIEWS [facility] 16:50:00-00:00 DATE: 01/20/2021 16:12 CDT INDICATION: - [...] underlying acute osseous abnormality [place] SECTION: ER 2021-01-20 EXAM: XR RIGHT TIBIA 2 VIEWS [facility] 16:50:00-00:00 DATE: 01/20/2021 16:12 CDT INDICATION: - [...] underlying acute osseous abnormality UT SECTION: ER 2021-01-20 EXAM: XR RIGHT TIBIA 2 VIEWS [facility] 16:50:00-00:00 DATE: 01/20/2021 16:12 CDT INDICATION: - [...] underlying acute osseous abnormality UT SECTION: ER 2021-01-20 EXAM: XR RIGHT TIBIA 2 VIEWS [facility] 16:50:00-00:00 DATE: 01/20/2021 16:12 CDT INDICATION: - [...] underlying acute osseous abnormality [place] SECTION: ER 2021-01-20 EXAM: XR RIGHT TIBIA 2 VIEWS [facility] 16:50:00-00:00 DATE: 01/20/2021 16:12 CDT INDICATION: - [...] ER 2015-09-18 Single Contrast Upper GI series: [facility] 10:00:28-00:00 CLINICAL HISTORY: Gastric sleeve, evaluate for [...] the small bowel. Fluoroscopy Time: 0.6 minutes SL:2015-09-18 Single Contrast Upper GI series: [facility] 10::-:00 CLINICAL HISTORY: Gastric sleeve, evaluate for l [...] the small bowel. Fluoroscopy Time: 0.6 minutes SL:2015-09-18 Single Contrast Upper GI series: [facility] 10::-: CLINICAL HISTORY: Gastric sleeve, evaluate for l [...] the small bowel. Fluoroscopy Time: 0.6 minutes SL:2015-09-18 Single Contrast Upper GI series: [facility] 10::-:00 CLINICAL HISTORY: Gastric sleeve, evaluate for l [...] the small bowel. Fluoroscopy Time: 0.6 minutes SL:2015-09-18 Single Contrast Upper GI series: [facility] 10:00:28-00:00 CLINICAL HISTORY: Gastric sleeve, evaluate for [...] the small bowel. Fluoroscopy Time: 0.6 minutes SL:2015-09-18 EXAM: CT ABDOMEN AND PELVIS WITH IV CONTRAST [facility] 00:56:07-00:00 DATE: Sep 18, 2015 12:56:07 AM [...] colon diverticulosis without evidence of diverticulitis. SL: 14 2015-09-18 EXAM: CT ABDOMEN AND PELVIS WITH IV CONTRAST [facility] 00:56:07-00:00 DATE: Sep 18, 2015 12:56:07 AM CLINICAL INDICATIONS: Recent spleen gastrectomy. Upper abdominal pain and nausea. TECHNIQUE: Multiple helical of abdomen and pelvis from the level of the domes of the diaphragm through the symphysis pubis after the administration of intravenous contrast. Axial, sagittal and coronal r eformats are provided. Delayed images through th e abdomen were acquired. COMPARISON: CT abdomen [...] colon diverticulosis without evidence of diverticulitis. SL: 14 2015-09-18 EXAM: CT ABDOMEN AND PELVIS WITH IV CONTRAST [facility] 00:56:07-00:00 DATE: Sep 18, 2015 12:56:07 AM CLINICAL INDICATIONS: Recent spleen gastrectomy. Upper abdominal pain and nausea. TECHNIQUE: Multiple helical of abdomen and pelvis from the level of the domes of the diaphragm through the symphysis pubis after the administration of intravenous contrast. Axial, sagittal and coronal r eformats are provided. Delayed images through th e abdomen were acquired. COMPARISON: CT abdomen [...] colon diverticulosis without evidence of diverticulitis. SL: 14 2015-09-18 EXAM: CT ABDOMEN AND PELVIS WITH IV CONTRAST [facility] 00:56:07-00:00 DATE: Sep 18, 2015 12:56:07 AM CLINICAL INDICATIONS: Recent spleen gastrectomy. Upper abdominal pain and nausea. TECHNIQUE: Multiple helical of abdomen and pelvis from the level of the domes of the diaphragm through the symphysis pubis after the administration of intravenous contrast. Axial, sagittal and coronal r eformats are provided. Delayed images through th e abdomen were acquired. COMPARISON: CT abdomen [...] colon diverticulosis without evidence of diverticulitis. SL: 14 2015-09-18 EXAM: CT ABDOMEN AND PELVIS WITH IV CONTRAST [facility] 00:56:07-00:00 DATE: Sep 18, 2015 12:56:07 AM CLINICAL INDICATIONS: Recent spleen gastrectomy. Upper abdominal pain and nausea. TECHNIQUE: Multiple helical of abdomen and pelvis from the level of the domes of the diaphragm through the symphysis pubis after the administration of intravenous contrast. Axial, sagittal and coronal r eformats are provided. Delayed images through th e abdomen were acquired. COMPARISON: CT abdomen [...] colon diverticulosis without evidence of diverticulitis. SL: 14 2015-08-26 CT ABDOMEN AND PELVIS WITH CONTRAST [facility] 12:51:07-00:00 INDICATION: History of recen t gastric [...] abdominal or pelvic abnormalities are visualized. SL: 2015-08-26 CT ABDOMEN AND PELVIS WITH CONTRAST [facility] 12:51:07-00:00 INDICATION: History of recen t gastric [...] abdominal or pelvic abnormalities are visualized. SL: 2015-08-26 CT ABDOMEN AND PELVIS WITH CONTRAST [facility] 12:51:07-00:00 INDICATION: History of recen t gastric [...] abdominal or pelvic abnormalities are visualized. SL: 2015-08-26 CT ABDOMEN AND PELVIS WITH CONTRAST [place] [address]:51:07-00:00 INDICATION: History of recen t gastric sleeve [...] abdominal or pelvic abnormalities are visualized. SL: 2015-08-26 CT ABDOMEN AND PELVIS WITH CONTRAST [place] [address]:51:07-00:00 INDICATION: History of recen t gastric sleeve [...] abdominal or pelvic abnormalities are visualized. SL: 2015-08-16 Stomach upper GI study [facility] ast 07:39:54-00:00 CLINICAL HISTORY: Gastric sleeve, evaluate for [...] the stomach. Fluoroscopy Time: 0.4 minutes. SL: 2015-08-16 Stomach upper GI study [facility] ast 07:39:54-00:00 CLINICAL HISTORY: Gastric sleeve, evaluate for [...] the stomach. Fluoroscopy Time: 0.4 minutes. SL: 2015-08-16 Stomach upper GI study [facility] ast 07:39:54-00:00 CLINICAL HISTORY: Gastric sleeve, evaluate for [...] the stomach. Fluoroscopy Time: 0.4 minutes. SL: 2015-08-16 Stomach upper GI study [facility] ast 07:39:54-00:00 CLINICAL HISTORY: Gastric sleeve, evaluate for [...] the stomach. Fluoroscopy Time: 0.4 minutes. SL: 2015-08-16 Stomach upper GI study [facility] 07:39:54-00:00 CLINICAL HISTORY: Gastric sleeve, evaluate for [...] 0.4 minutes. SL: 2015-06-24 Gastric emptying study. [facility] 10:30:00-:00 CLINICAL HISTORY: Abnormality on other imaging s [...] minutes: 98% IMPRESSION: Normal gastric emptying study. SL:2015-06-24 Gastric emptying study. [facility] 10:30:00-00:00 CLINICAL HISTORY: Abnormality on other imaging [...] minutes: 98% IMPRESSION: Normal gastric emptying study. SL:2015-06-24 Gastric emptying study. [facility] 10:30:00-00:00 CLINICAL HISTORY: Abnormality on other imaging [...] minutes: 98% IMPRESSION: Normal gastric emptying study. SL:2015-06-24 Gastric emptying study. [facility] 10:30:00-00:00 CLINICAL HISTORY: Abnormality on other imaging [...] minutes: 98% IMPRESSION: Normal gastric emptying study. SL:2015-06-24 Gastric emptying study. [facility] 10:30:00-00:00 CLINICAL HISTORY: Abnormality on other imaging [...] gastric emptying study. SL:2015-06-10 Barium Swallow/Video esophagram: [facility] 09:36:00-00:00 CLINICAL HX: GERD, preop for gastric [...] clinically indicated. Fluoroscopy Time: 3.1 minutes. SL:13 2015-06-10 Barium Swallow/Video esophagram: [facility] 09:36:00-00:00 CLINICAL HX: GERD, preop for gastric [...] clinically indicated. Fluoroscopy Time: 3.1 minutes. SL:13 2015-06-10 Barium Swallow/Video esophagram: [facility] 09:36:00-00:00 CLINICAL HX: GERD, preop for gastric [...] clinically indicated. Fluoroscopy Time: 3.1 minutes. SL:13 2015-06-10 Barium Swallow/Video esophagram: [facility] 09:36:00-00:00 CLINICAL HX: GERD, preop for gastric [...] as clinically indicated. Fluoroscopy Time: 3.1 minutes. SL:2015-06-10 Barium Swallow/Video esophagram: [facility] 09:36:00-00:00 CLINICAL HX: GERD, preop for gastric [...]
--- NOTE | 2023-04-10 15:26 | EDPHYS ---
Physician Documentation [facility] Name: Kyra Bailey Age: 33 yrs Sex: Female : 1990 Arrival Date: 04/10/2023 Time: 13:58 Bed DIS2 Private MD: ED Physician Umesh Baird HPI: 04/10 15:29 This 33 yrs old Female presents to ER via Ambulatory with complaints of Pelvic Pain, kb Back Pain. 15:29 Pt reports she broke her pelvis in 2016 and had screws put in. States she has been kb having left hip and pelvis pain since yesterday without new injury or trauma. 15:30 The patient or guardian reports pain. that occurred at home, sustained from a chronic kb condition, There is no obvious deformity, The patient is able to self ambulate. The patient is able to bear their full body weight. There is no radiation of the patient's discomfort. The complaints affect the left hip. Onset: The symptoms/episode began/occurred yesterday. Modifying factors: The symptoms are alleviated by nothing, the symptoms are aggravated by nothing. Associated signs and symptoms: Loss of consciousness: the patient experienced no loss of consciousness, Pertinent positives: None. Severity of symptoms: At their worst the symptoms were mild, in the emergency department the symptoms are unchanged. The patient has not experienced similar symptoms in the past. The patient has not recently seen a physician. Historical: - Allergies: 14:21 Latex, Natural Rubber; ss 14:21 Tessalon Perles; ss - PMHx: 14:21 Anxiety; diabetes mellitus; Ovarian cyst; Seizure; ss - PSHx: 14:21 Cholecystectomy; gastric sleeve; knee; pelvic repair; ss - Immunization history:: Client reports receiving the 2nd dose of the Covid vaccine. - Social history:: Smoking status: Patient denies any tobacco usage or history of. ROS: 15:25 Constitutional: Negative for fever, chills, and weight loss. kb 15:25 MS/extremity: Positive for pain, of the left hip. 15:25 All other systems are negative. Exam: 15:25 Constitutional: This is a well developed, well nourished patient who is awake, alert, kb and in no acute distress. Head/Face: Normocephalic, atraumatic. ENT: Moist Mucous membranes Cardiovascular: Regular rate and rhythm with a normal S1 and S2. No gallops, murmurs, or rubs. No pulse deficits. Respiratory: Respirations even and unlabored. No increased work of breathing. Talking in full sentences Abdomen/GI: Soft, non-tender. No distention Skin: Warm, dry with normal turgor. Normal color. Neuro: Awake and alert, GCS 15, oriented to person, place, time, and situation. Moves all extremities. Normal gait. 15:25 Musculoskeletal/extremity: Extremities: grossly normal except: noted in the left hip: pain, tenderness, ROM: intact in all extremities, Circulation is intact in all extremities. Sensation intact. Weight bearing: able to fully bear weight. Vital Signs: 14:19 BP 122 / 76; Pulse 76; Resp 15; Temp 98.1(TE); Pulse Ox 99% on R/A; Weight 142.88 kg; ss Height 5 ft. 7 in. ; Pain 10/10; 14:19 Body Mass Index 49.34 (142.88 kg, 170.18 cm) ss 14:19 Pain Scale: Adult ss MDM: 14:02 Patient medically screened. kb 15:27 Differential diagnosis: strain, fracture, arthritis. Data reviewed: vital signs, nurses kb notes. Counseling: I had a detailed discussion with the patient and/or guardian regarding: the historical points, exam findings, and any diagnostic results supporting the discharge/admit diagnosis, radiology results, the need for outpatient follow up, a orthopedic surgeon, to return to the emergency department if symptoms worsen or persist or if there are any questions or concerns that arise at home. 15:30 Differential diagnosis: hip fracture, arthritis, strain. kb 04/10 14:08 Order name: Hip Left 2 View XRAY; Complete Time: 15:04 kb 04/10 14:08 Order name: Pelvis XRAY; Complete Time: 15:04 kb Administered Medications: 15:31 Drug: Ketorolac IM 30 mg Route: IM; Site: right deltoid; ss 15:40 Follow up: Response: No adverse reaction ss Disposition: 16:49 Co-signature as Attending Physician, Umesh Baird MD I agree with the assessment and kdr plan of care. Disposition Summary: 04/10/23 15:25 Discharge Ordered Location: Home kb Condition: Stable kb Diagnosis - Pain in left hip kb Followup: kb - With: Emergency Department - When: As needed - Reason: Worsening of condition Followup: kb - With: Private Physician - When: 2 - 3 days - Reason: Recheck today's complaints, Continuance of care, Re-evaluation by your physician Discharge Instructions: - Discharge Summary Sheet kb - Musculoskeletal Pain kb - Hip Pain kb Forms: - Medication Reconciliation Form kb - Thank You Letter kb - Antibiotic Education kb - Prescription Opioid Use kb - Patient Portal Instructions kb - Leadership Thank You Letter kb Prescriptions: - Prednisone 20 mg Oral Tablet - take 1 tablet by ORAL route once daily for 5 days; 5 tablet; Refills: 0, kb Product Selection Permitted Signatures: Dispatcher [employer] EDMS Josephine Forrester, ATHLETIC COACH-C ATHLETIC COACH-Umesh Stevenson MD MD kdr Blanchard, Shelby RN RN ss
--- NOTE | 2023-04-10 15:26 | ER ---
Nurse's Notes [facility] Name: Kyra Bailey Age: 33 yrs Sex: Female : 1990 Arrival Date: 04/10/2023 Time: 13:58 Bed DIS2 Private MD: Diagnosis: Pain in left hip Presentation: 04/10 14:19 Chief complaint: Patient states: "I have screws in my pelvis and they hurt." Pt reports ss she had a pelvic fx back in 2016 and is c/o increased pain that shoots up her back x 2 days. Coronavirus screen: Client denies travel out of the [place] in the last 14 days. Ebola Screen: Patient denies exposure to infectious person. Patient denies travel to an Ebola-affected area in the 21 days before illness onset. Initial Sepsis Screen: Does the patient meet any 2 criteria? No. Patient's initial sepsis screen is negative. Does the patient have a suspected source of infection? No. Patient's initial sepsis screen is negative. Risk Assessment: Do you want to hurt yourself or someone else? Patient reports no desire to harm self or others. Onset of symptoms is unknown. 14:19 Method Of Arrival: Ambulatory ss 14:19 Acuity: MONE 3 ss Historical: - Allergies: 14:21 Latex, Natural Rubber; ss 14:21 Tessalon Perles; ss - PMHx: 14:21 Anxiety; diabetes mellitus; Ovarian cyst; Seizure; ss - PSHx: 14:21 Cholecystectomy; gastric sleeve; knee; pelvic repair; ss - Immunization history:: Client reports receiving the 2nd dose of the Covid vaccine. - Social history:: Smoking status: Patient denies any tobacco usage or history of. Screenin:39 [facility] ED Fall Risk Assessment (Adult) History of falling in the last 3 months, ss including since admission No falls in past 3 months (0 pts). Abuse screen: Denies threats or abuse. Denies injuries from another. Nutritional screening: No deficits noted. Tuberculosis screening: Never had TB. Assessment: 15:39 General: Appears in no apparent distress. comfortable. Pain: Complains of pain in ss pelvis and left hip Pain currently is 10 out of 10 on a pain scale. Neuro: Level of Consciousness is awake, alert, obeys commands. Respiratory: Respiratory effort is even, unlabored. Derm: Skin is intact, is healthy with good turgor, Skin is pink, warm \\T\\ dry. normal. Vital Signs: 14:19 BP 122 / 76; Pulse 76; Resp 15; Temp 98.1(TE); Pulse Ox 99% on R/A; Weight 142.88 kg; ss Height 5 ft. 7 in. ; Pain 10/10; 14:19 Body Mass Index 49.34 (142.88 kg, 170.18 cm) ss 14:19 Pain Scale: Adult ss ED Course: 14:00 Patient arrived in ED. rg4 14:02 Joseph[facility] Forrester [facility]C [facility]. kb 14:02 Umesh Baird MD is Attending Physician. kb 14:21 Triage completed. ss 14:21 Arm band placed on left wrist. ss 14:36 Hip Left 2 View XRAY In Process Unspecified. EDMS 14:36 Pelvis XRAY In Process Unspecified. EDMS 15:31 Griselda Sapp, CY is Primary Nurse. ss 15:39 Patient has correct armband on for positive identification. ss 15:39 No provider procedures requiring assistance completed. Patient did not have IV access ss during this emergency room visit. Administered Medications: 15:31 Drug: Ketorolac IM 30 mg Route: IM; Site: right deltoid; ss 15:40 Follow up: Response: No adverse reaction ss Medication: 15:39 VIS not applicable for this client. ss Outcome: 15:25 Discharge ordered by MD. kb 15:39 Discharged to home ambulatory. ss 15:39 Condition: good 15:39 Discharge instructions given to patient, Instructed on discharge instructions, follow up and referral plans. Demonstrated understanding of instructions, follow-up care. 15:40 Patient left the ED. ss Signatures: Dispatcher [employer] EDMS Josephine Forrester FNP-C FNP-Griselda Elder, CY RN ss Zaida Kirby rg4
[2023-04-10 15:44] VITALS: BP 122/76; TEMP 98.1; O2SAT 99
== END 2023-04-10 15:40 | disposition home or self-care (01) ==
LOC: ER 13:58
DX: M25.552 Pain in left hip (principal); Z88.8 Allergy status to other drugs, medicaments and biological substances; Z91.040 Latex allergy status; Z91.048 Other nonmedicinal substance allergy status
CPT/HCPCS: 72170; 96372; 99284

== ENCOUNTER 2024-01-04 10:08 | Emergency (ER) | payer OTHER ==
--- NOTE | 2024-01-04 10:55 | EDPHYS ---
Physician Documentation [facility] Name: Kyra Bailey Age: 33 yrs Sex: Female : 1990 Arrival Date: 01/04/2024 Time: 10:08 Bed 12 Private MD: ED Physician Kar Dixon HPI: 01/03 10:27 This 33 yrs old Female presents to ER via Ambulatory with complaints of Ear Pain. rn 10:27 The patient presents with pain, mild. The complaints affect the right ear and left ear. rn Onset: The symptoms/episode began/occurred 1 month(s) ago. Modifying factors: The symptoms are alleviated by nothing, the symptoms are aggravated by nothing. Associated signs and symptoms: Pertinent negatives: fever, lightheadedness, rhinorrhea, sinus trouble, shortness of breath, tinnitus, vertigo. Severity of symptoms: At their worst the symptoms were mild in the emergency department the symptoms are unchanged. The patient has experienced similar episodes in the past. Patient reports bilateral ear pain for longer than a month. Seen by PCP and recommended Debrox [id number] which is not helping. No trauma. No evidence of infection. No fever.. Historical: - Allergies: 10:16 Tessalon Perles; as6 10:16 Latex; as6 - PMHx: 10:16 diabetes mellitus; Anxiety; Ovarian cyst; Seizure; as6 - PSHx: 10:16 gastric sleeve; Cholecystectomy; knee; pelvic repair; as6 - Immunization history:: Adult Immunizations up to date. - Infectious Disease History:: Denies. - Social history:: Smoking status: Patient denies any tobacco usage or history of. - Family history:: not pertinent. - Hospitalizations: : No recent hospitalization is reported. ROS: 10:27 Constitutional: Negative for fever, chills, and weight loss, ENT: Positive for rn bilateral ear pain Neck: Negative for injury, pain, and swelling, Respiratory: Negative for shortness of breath, cough, wheezing, and pleuritic chest pain, Neuro: Negative for headache, weakness, numbness, tingling, and seizure, Exam: 10:27 Constitutional: This is a well developed, well nourished patient who is awake, alert, rn and in no acute distress. ENT: Bilateral cerumen impaction, no evidence of infection or inflammation, no foreign body noted Vital Signs: 10:15 BP 120 / 82; Pulse 84; Resp 18 S; Temp 97.5(TE); Pulse Ox 99% on R/A; Weight 146.96 kg as6 (R); Height 5 ft. 7 in. (R); Pain 8/10; 10:15 Body Mass Index 50.75 (146.96 kg, 170.18 cm) as6 10:15 Pain Scale: Adult as6 MDM: 10:12 Patient medically screened. rn 10:53 Differential diagnosis: cerumen impaction. Data reviewed: vital signs, nurses notes, rn and as a result, I will discharge patient. Counseling: I had a detailed discussion with the patient and/or guardian regarding the historical points, exam findings, and any diagnostic results supporting the discharge/admit diagnosis, the need for outpatient follow up, to return to the emergency department if symptoms worsen or persist or if there are any questions or concerns that arise at home. Special discussion: I discussed with the patient/guardian in detail that at this point there is no indication for admission to the hospital. It is understood, however, that if the symptoms persist or worsen the patient needs to return immediately for re-evaluation. Based on the history and exam findings, there is no indication for further emergent testing or inpatient evaluation. I discussed with the patient/guardian the need to see the ENT specialist for further evaluation of the symptoms. 01/03 10:27 Order name: [facility]. Order: please irrigate ears bilaterally; Complete Time: 11:03 rn Administered Medications: No medications were administered Disposition Summary: 01/04/24 10:54 Discharge Ordered Notes: Location: Home rn Problem: an ongoing problem rn Symptoms: have improved rn Condition: Stable rn Diagnosis - Impacted cerumen, bilateral rn Followup: rn - With: Tiff Freitas MD - When: As needed - Reason: Recheck today's complaints, Re-evaluation by your physician Discharge Instructions: - Discharge Summary Sheet rn - Earwax Buildup, Adult rn - Ear Irrigation rn Forms: - Medication Reconciliation Form rn - Antibiotic corporate attorney - Prescription Opioid Use rn - Patient Portal Instructions rn - Leadership Thank You Letter rn Signatures: Kar Dixon MD MD rn Slawson, Ashby, RN RN as6
--- NOTE | 2024-01-04 10:55 | ER ---
Nurse's Notes [facility] Name: Kyra Bailey Age: 33 yrs Sex: Female : 1990 Arrival Date: 01/04/2024 Time: 10:08 Bed 12 Private MD: Diagnosis: Impacted cerumen, bilateral Presentation: 01/03 10:15 Chief complaint: Patient states: bilateral ear pain, buzzing, loss of hearing for as6 months. pt has not seen an ENT. Coronavirus screen: At this time, the client does not indicate any symptoms associated with coronavirus-19. Ebola Screen: No symptoms or risks identified at this time. Initial Sepsis Screen: Does the patient meet any 2 criteria? No. Patient's initial sepsis screen is negative. Does the patient have a suspected source of infection? No. Patient's initial sepsis screen is negative. Risk Assessment: Do you want to hurt yourself or someone else? Patient reports no desire to harm self or others. Onset of symptoms is unknown. 10:15 Method Of Arrival: Ambulatory as6 10:15 Acuity: MONE 4 as6 Triage Assessment: 10:16 General: Appears in no apparent distress. comfortable, Behavior is calm, cooperative. as6 Pain: Complains of pain in right ear and left ear. Historical: - Allergies: 10:16 Tessalon Perles; as6 10:16 Latex; as6 - PMHx: 10:16 diabetes mellitus; Anxiety; Ovarian cyst; Seizure; as6 - PSHx: 10:16 gastric sleeve; Cholecystectomy; knee; pelvic repair; as6 - Immunization history:: Adult Immunizations up to date. - Infectious Disease History:: Denies. - Social history:: Smoking status: Patient denies any tobacco usage or history of. - Family history:: not pertinent. - Hospitalizations: : No recent hospitalization is reported. Screenin:19 [facility] ED Fall Risk Assessment (Adult) History of falling in the last 3 months, as6 including since admission No falls in past 3 months (0 pts) Confusion or Disorientation No (0 pts) Intoxicated or Sedated No (0 pts) Impaired Gait No (0 pts) Mobility Assist Device Used No (0 pt) Altered Elimination No (0 pt) Score/Fall Risk Level 0 - 2 = Low Risk Oriented to surroundings, Maintained a safe environment, Educated pt \T\ family on fall prevention, incl call for assistance when getting out of bed, Assessed \T\ reinforced patient's understanding of fall precautions. Abuse screen: Denies threats or abuse. Denies injuries from another. Nutritional screening: No deficits noted. Tuberculosis screening: No symptoms or risk factors identified. Assessment: 10:24 EENT: Ear canal excessive wax build up to left and right ear. as6 Vital Signs: 10:15 BP 120 / 82; Pulse 84; Resp 18 S; Temp 97.5(TE); Pulse Ox 99% on R/A; Weight 146.96 kg as6 (R); Height 5 ft. 7 in. (R); Pain 8/10; 10:15 Body Mass Index 50.75 (146.96 kg, 170.18 cm) as6 10:15 Pain Scale: Adult as6 ED Course: 10:10 Patient arrived in ED. im 10:12 Kar Dixon MD is Attending Physician. rn 10:16 Triage completed. as6 10:17 Arm band placed on. as6 10:19 Ace Martins, CY is Primary Nurse. as6 10:20 Bed in low position. Call light in reach. as6 10:54 Tiff Freitas MD is Referral Physician. rn 11:03 Provided Education on: follow up with ENT. as6 11:03 No provider procedures requiring assistance completed. Patient did not have IV access as6 during this emergency room visit. Ear irrigation: Route both ears with Normal Saline amount 500ml Patient tolerated well. Administered Medications: No medications were administered Medication: 10:20 VIS not applicable for this client. as6 Outcome: 10:54 Discharge ordered by . rn 11:03 Discharged to home ambulatory, with significant other, as6 11:03 Condition: stable 11:03 Discharge instructions given to patient, Instructed on discharge instructions, follow up and referral plans. Demonstrated understanding of instructions, follow-up care, 11:10 Patient left the ED. as6 Signatures: Kar Dixon MD MD rn Slawson, Ashby, RN RN as6 Ashley You im
[2024-01-04 11:28] VITALS: BP 120/82; TEMP 97.5; O2SAT 99
== END 2024-01-04 11:10 | disposition home or self-care (01) ==
LOC: ER 10:08
DX: H61.23 Impacted cerumen, bilateral (principal)

== ENCOUNTER 2024-02-18 18:37 | Emergency (ER) | payer OTHER ==
[2024-02-18] MEDS ORDERED: ONDANSETRON 4 MG/2 ML VIAL ONE (20:35)
[2024-02-18] MEDS ORDERED: NA CHLORIDE 0.9% 1,000 ML ONE (20:36)
[2024-02-18] MEDS ORDERED: MORPHINE 4 MG/ML SYR ONE (20:36)
[2024-02-18 20:42] LABS: Absolute Basophils 0.1 K/uL (0-0.5); Absolute Eosinophils 0.1 K/uL (0-0.5); Absolute Lymphocytes (CBC) 3.6 K/uL (0.7-4.9); Absolute Monocytes 0.8 K/uL (0.1-1.3); Absolute Neutrophil 5.4 K/uL (1.8-8.0); Basophils % 0.9 % (0-1.3); Eosinophils % 1.4 % (0-4.4); Hematocrit 39.9 % (36.0-45.0); Hemoglobin 12.6 g/dL (12.0-15.0); Lymphocytes % 35.7 % (15.3-44.8); MCH 23.7 pg (27.0-35.0); MCHC 31.7 g/dL (32.0-36.0); MPV 9.5 fL (7.6-11.3); Monocytes % 7.9 % (3.3-12.3); Neutrophils % 54.1 % (41.7-73.7); Platelets 298 thou/uL (152-406); RBC Red Blood Cell Count 5.33 M/uL (3.86-4.86); Red Cell Distribution Width 16.2 % (12.1-15.2)
[2024-02-18 20:43] LABS: Specific Gravity 1.005 (1.005-1.030)
[2024-02-18 20:59] LABS: Albumin 3.5 g/dL (3.4-5.0); Albumin/Globulin Ratio 0.9 (1.1-1.8); Anion Gap 6.2 mEq/L (5.0-15.0); Bilirubin Total 0.3 mg/dL (0.2-1.0); Globulin 3.7 g/dL (2.3-3.5); Protein, Total 7.2 g/dL (6.4-8.2)
[2024-02-18 21:07] LABS: Potassium 4.2 mEq/L (3.5-5.1)
--- NOTE | 2024-02-18 21:14 | RAD REPORT ---
EXAM DESCRIPTION: CTAbdomen Pelvis W Contrast - 02/18/2024 9:05 pm CLINICAL HISTORY: Abdominal pain. back pain, sciatica, previous abd sx;Abd pain COMPARISON: <Comparisons> TECHNIQUE: Biphasic CT imaging of the abdomen and pelvis was performed with 100 ml non-ionic IV cont rast. All CT scans are performed using dose optimization technique as appropriate and may include automated exposure control or mA/KV adjustment according to patient size. FINDINGS: The lung bases are clear.Small hiatal hernia. Cholecystectomy. Postsurgical changes about the stomach. The liver, spleen, pancreas, adrenal glands and kidneys are within normal limits. No bowel obstruction, free air, free fluid or abscess. The appendix is normal. No evidence of signi ficant lymphadenopathy. No fracture. Hardware is present traversing the left SI joint. No hardware loosening. IMPRESSION: No acute intra-abdominal or pelvic finding.
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
[2024-02-18] MEDS ORDERED: predniSONE 20 MG TAB ONE (21:47)
[2024-02-18] MEDS ORDERED: methocarbamoL 750 MG TAB ONE (21:48)
[2024-02-18] MEDS ORDERED: HYDROCODONE/APAP 10/325 TAB ONE (21:48)
[2024-02-18] MEDS ORDERED: PROMETHAZINE 25 MG TABLET ONE (21:48)
[2024-02-18 22:37] VITALS: BP 131/90; TEMP 97.7; O2SAT 100
== END 2024-02-18 22:02 | disposition home or self-care (01) ==
LOC: ER 18:37
DX: M79.662 Pain in left lower leg (principal); R20.2 Paresthesia of skin; Z96.698 Presence of other orthopedic joint implants
CPT/HCPCS: 96361; 85025; 36415; 81025; 83690; 80053; 74177; 96375; 96374; 99284; Q9967; Q0169; J7512; J2405; J7030

== ENCOUNTER 2024-05-30 09:37 | Emergency (ER) | payer OTHER ==
[2024-05-30] MEDS ORDERED: IBUPROFEN 200 MG TAB PO ONE (10:17)
--- NOTE | 2024-05-30 11:16 | RAD REPORT ---
EXAMINATION: XR RIGHT FOOT CLINICAL INDICATION: Female, 34 years old. [facility] MAIN PAIN Bed: TECHNIQUE: Multiple views of the right foot were obtained. COMPARISON: No prior exam. FINDINGS: No acute fracture or dislocation seen. Small plantar calcaneal spur. IMPRESSION: No acute finding evident.
--- NOTE | 2024-05-30 11:16 | RAD REPORT ---
EXAM:Tib Fib Right HISTORY: PAIN COMPARISON: None FINDINGS/IMPRESSION: There is a significant amount of soft tissue swelling seen anterior pretibial so ft tissues superiorly. No underlying fracture, dislocation or aggressive bone lesion.
--- NOTE | 2024-05-30 13:18 | ER ---
Nurse's Notes [facility] Name: Kyra Bailey Age: 34 yrs Sex: Female : 1990 Arrival Date: 05/30/2024 Time: 09:37 Bed 10 Private MD: Diagnosis: Fall (on) (from) other stairs and steps;Contusion of right lower leg;Sprain of foot Presentation: 05/30 09:59 Chief complaint: Patient states: Fell on Wednesday down 3 flights of stairs, reports pain jl7 to right mid damico down to toes. Coronavirus screen: At this time, the client does not indicate any symptoms associated with coronavirus-19. Ebola Screen: No symptoms or risks identified at this time. Initial Sepsis Screen: Does the patient meet any 2 criteria? No. Patient's initial sepsis screen is negative. Does the patient have a suspected source of infection? No. Patient's initial sepsis screen is negative. Risk Assessment: Do you want to hurt yourself or someone else? Patient reports no desire to harm self or others. Onset of symptoms was May 28, 2024. 09:59 Method Of Arrival: Ambulatory jl7 09:59 Acuity: MONE 4 jl7 Triage Assessment: 10:02 General: Appears in no apparent distress. uncomfortable, Behavior is calm, cooperative, jl7 appropriate for age. Pain: Complains of pain in right damico, anterior aspect of right ankle and dorsum of right foot Pain currently is 9 out of 10 on a pain scale. Neuro: No deficits noted. Cardiovascular: Patient's skin is warm and dry. Respiratory: Airway is patent Respiratory effort is even, unlabored, Respiratory pattern is regular, symmetrical. Derm: Skin is pink, warm \\T\\ dry. Musculoskeletal: Swelling absent. 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 - Infectious Disease History:: Denies. - Social history:: Smoking status: Patient denies any tobacco usage or history of. Screenin:12 [facility] ED Fall Risk Assessment (Adult) History of falling in the last 3 months, jl7 including since admission Yes- single mechanical fall (1 pt) Confusion or Disorientation No (0 pts) Intoxicated or Sedated No (0 pts) Impaired Gait No (0 pts) Mobility Assist Device Used Yes (1 pt) Altered Elimination No (0 pt) Score/Fall Risk Level 0 - 2 = Low Risk Oriented to surroundings, Maintained a safe environment. Abuse screen: Denies threats or abuse. Denies injuries from another. Nutritional screening: No deficits noted. Tuberculosis screening: No symptoms or risk factors identified. Assessment: 10:14 Reassessment: Pt refuses test, reports "I am not ", Lab notified, jl7 order canceled, x-ray notified, ERD notified. Vital Signs: 09:59 BP 128 / 92; Pulse 70; Resp 17; Temp 97.6; Pulse Ox 98% ; Weight 136.08 kg; Height 5 jl7 ft. 7 in. ; Pain 9/10; 09:59 Body Mass Index 46.99 (136.08 kg, 170.18 cm) jl7 09:59 Pain Scale: Adult jl7 ED Course: 09:40 Patient arrived in ED. gm2 09:52 Galo Rojas MD is Attending Physician. [facility] 10:02 Triage completed. jl7 10:05 Arm band placed on right wrist. jl7 10:26 Ice pack to injury. jl7 10:58 Tib Fib Right XRAY In Process Unspecified. EDMS 10:58 Foot Right 3 View XRAY In Process Unspecified. EDMS 12:12 Provided Education on: use of callbell. jl7 13:17 Jeevan Marie MD is Referral Physician. joseph 13:37 Tabby Parmar RN is Primary Nurse. jl7 13:47 Patient has correct armband on for positive identification. jl7 13:47 No provider procedures requiring assistance completed. Patient did not have IV access jl7 during this emergency room visit. Administered Medications: 10:25 Drug: Ibuprofen PO 600 mg PO once Route: PO; jl7 13:47 Follow up: Response: No adverse reaction; Pain is decreased jl7 Medication: 14:18 VIS not applicable for this client. jl7 Outcome: 13:18 Discharge ordered by . joseph 13:47 Discharged to home ambulatory, with significant other, naty 13:47 Condition: stable 13:47 Discharge instructions given to patient, significant other, Instructed on discharge instructions, follow up and referral plans. medication usage, Demonstrated understanding of instructions, follow-up care, medications, Prescriptions given X 1, 13:47 Patient left the ED. jl7 Signatures: Dispatcher [employer] EDTX Galo Rojas MD MD cha Leal, Jahala, RN RN [email or web address] My [facility]
--- NOTE | 2024-05-30 13:18 | EDPHYS ---
Physician Documentation [facility] Name: Kyra Bailey Age: 34 yrs Sex: Female : 1990 Arrival Date: 05/30/2024 Time: 09:37 Bed 10 Private MD: ED Physician Galo Rojas HPI: 05/30 13:12 This 34 yrs old Female presents to ER via Ambulatory with complaints of Fall joseph Injury, Ankle Injury. 13:12 Details of fall: The patient fell from a height, down approximately 3 stairs. Onset: joseph The symptoms/episode began/occurred just prior to arrival, today. Associated injuries: The patient sustained right leg, decreased range of motion, painful injury, swelling. Severity of symptoms: At their worst the symptoms were moderate, in the emergency department the symptoms are unchanged. The patient has not experienced similar symptoms in the past. 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 - Infectious Disease History:: Denies. - Social history:: Smoking status: Patient denies any tobacco usage or history of. ROS: 13:13 Constitutional: Negative for fever, chills, and weight loss, Eyes: Negative for injury, joseph pain, redness, and discharge, ENT: Negative for injury, pain, and discharge, Neck: Negative for injury, pain, and swelling, Cardiovascular: Negative for chest pain, palpitations, and edema, Respiratory: Negative for shortness of breath, cough, wheezing, and pleuritic chest pain, Abdomen/GI: Negative for abdominal pain, nausea, vomiting, diarrhea, and constipation, Back: Negative for injury and pain, : Negative for injury, bleeding, discharge, and swelling, Skin: Negative for injury, rash, and discoloration, Neuro: Negative for headache, weakness, numbness, tingling, and seizure, Psych: Negative for depression, anxiety, suicide ideation, homicidal ideation, and hallucinations, Allergy/Immunology: Negative for hives, rash, and allergies, Endocrine: Negative for neck swelling, polydipsia, polyuria, polyphagia, and marked weight changes, Hematologic/Lymphatic: Negative for swollen nodes, abnormal bleeding, and unusual bruising, 13:13 MS/extremity: Positive for injury or acute deformity, contusion, decreased range of motion, pain, swelling, tenderness, of the right damico, Exam: 13:13 Constitutional: This is a well developed, well nourished patient who is awake, alert, joseph and in no acute distress. Head/Face: Normocephalic, atraumatic. Eyes: Pupils equal round and reactive to light, extra-ocular motions intact. Lids and lashes normal. Conjunctiva and sclera are non-icteric and not injected. Cornea within normal limits. Periorbital areas with no swelling, redness, or edema. ENT: Nares patent. No nasal discharge, no septal abnormalities noted. Tympanic membranes are normal and external auditory canals are clear. Oropharynx with no redness, swelling, or masses, exudates, or evidence of obstruction, uvula midline. Mucous membranes moist. Neck: Trachea midline, no thyromegaly or masses palpated, and no cervical lymphadenopathy. Supple, full range of motion without nuchal rigidity, or vertebral point tenderness. No Meningismus. Chest/axilla: Normal chest wall appearance and motion. Nontender with no deformity. No lesions are appreciated. Cardiovascular: Regular rate and rhythm with a normal S1 and S2. No gallops, murmurs, or rubs. Normal PMI, no JVD. No pulse deficits. Respiratory: Lungs have equal breath sounds bilaterally, clear to auscultation and percussion. No rales, rhonchi or wheezes noted. No increased work of breathing, no retractions or nasal flaring. Abdomen/GI: Soft, non-tender, with normal bowel sounds. No distension or tympany. No guarding or rebound. No evidence of tenderness throughout. Back: No spinal tenderness. No costovertebral tenderness. Full range of motion. Skin: Warm, dry with normal turgor. Normal color with no rashes, no lesions, and no evidence of cellulitis. Neuro: Awake and alert, GCS 15, oriented to person, place, time, and situation. Cranial nerves II-XII grossly intact. Motor strength 5/5 in all extremities. Sensory grossly intact. Cerebellar exam normal. Normal gait. Psych: Awake, alert, with orientation to person, place and time. Behavior, mood, and affect are within normal limits. 13:13 Musculoskeletal/extremity: ROM: intact in all extremities, full active range of motion, full passive range of motion, limited active range of motion due to pain, limited passive range of motion due to pain, Circulation is intact in all extremities. Sensation intact. Compartment Syndrome exam of affected extremity: is normal. DVT Exam: negative Homans' sign noted on exam, no appreciated bluish discoloration, no erythema, no increased warmth, pain, swelling, tenderness, Vital Signs: 09:59 BP 128 / 92; Pulse 70; Resp 17; Temp 97.6; Pulse Ox 98% ; Weight 136.08 kg; Height 5 jl7 ft. 7 in. ; Pain 9/10; 09:59 Body Mass Index 46.99 (136.08 kg, 170.18 cm) [facility] 09:59 Pain Scale: Adult [facility] MDM: 09:52 Patient medically screened. [facility] 13:15 Differential diagnosis: dislocation, closed fracture, contusion, tendonitis. [facility] Differential diagnosis: abrasion, contusion, fracture, laceration, multiple trauma, sprain, strain. Data reviewed: vital signs, nurses notes, radiologic studies, plain films. Consideration of Admission/Observation Escalation of care including admission/observation considered. I considered the following discharge prescriptions or medication management in the emergency department Medications were administered in the Emergency Department. See MAR. Independent interpretation of the following test(s) in the Emergency Department X-Ray: My interpretation is RIGHT LOWER EXT. Test considered but Not performed: X-ray: NO FX. Care significantly affected by the following chronic conditions: Diabetes, Obesity, ANXIETY SEIZURES. 05/30 10:03 Order name: Tib Fib Right XRAY; Complete Time: 12:36 [facility] 05/30 10:03 Order name: Foot Right 3 View XRAY; Complete Time: 12:36 joseph 05/30 10:04 Order name: Ice pack; Complete Time: 10:25 joseph 05/30 13:39 Order name: Walking boot; Complete Time: 13:47 [facility] Administered Medications: 10:25 Drug: Ibuprofen PO 600 mg PO once Route: PO; [facility] 13:47 Follow up: Response: No adverse reaction; Pain is decreased jl7 Disposition Summary: 05/30/24 13:18 Discharge Ordered Notes: Location: Home joseph Problem: new joseph Symptoms: have improved joseph Condition: Stable joseph Diagnosis - Fall (on) (from) other stairs and steps joseph - Contusion of right lower leg joseph - Sprain of foot joseph Followup: joseph - With: Private Physician - When: 2 - 3 days - Reason: Recheck today's complaints, Continuance of care, Re-evaluation by your physician Followup: joseph - With: Jeevan Marie MD - When: 2 - 3 days - Reason: Recheck today's complaints, Re-evaluation by your physician Discharge Instructions: - Discharge Summary Sheet joseph - Contusion joseph - Foot Contusion joseph - Fall Prevention in the Home, Adult joseph - Contusion, [id number] joseph - Fall Prevention in the Home, Adult, Tarb-[id number] joseph - Foot Contusion, [id number] joseph Forms: - Medication Reconciliation Form joseph - Antibiotic Education joseph - Prescription Opioid Use joseph - Patient Portal Instructions joseph - Leadership Thank You Letter [facility] Prescriptions: - Diclofenac Sodium 75 mg Oral tablet, delayed release (enteric coated) - take 1 tablet ORAL route 2 times per day; 20 tablet; Refills: 0, Product joseph Selection Permitted Signatures: Dispatcher [employer] EDGalo Pfeiffer MD MD cha Leal, Jahala, RN RN jl7 Corrections: (The following items were deleted from the chart) 10:03 10:03 Foot Right 3 View+RAD.RAD.BRZ ordered. EDMS EDMS 10:21 10:03 Test, Urine+UC.LAB.BRZ ordered. EDMS EDMS 10:22 10:03 Urinalysis+U.LAB.BRZ ordered. EDMS EDMS
[2024-05-30 13:51] VITALS: BP 128/92; TEMP 97.6; O2SAT 98
== END 2024-05-30 13:47 | disposition home or self-care (01) ==
LOC: ER 09:37
DX: S93.601A Unspecified sprain of right foot, initial encounter (principal); S80.11XA Contusion of right lower leg, initial encounter; W10.8XXA Fall (on) (from) other stairs and steps, initial encounter
CPT/HCPCS: 99283

== ENCOUNTER 2024-09-20 09:12 | Emergency (ER) | payer OTHER, SELFPAY ==
[2024-09-20 09:49] LABS: Absolute Basophils 0.1 K/uL (0-0.5); Absolute Eosinophils 0.1 K/uL (0-0.5); Absolute Lymphocytes (CBC) 2.1 K/uL (0.7-4.9); Absolute Monocytes 0.6 K/uL (0.1-1.3); Absolute Neutrophil 3.4 K/uL (1.8-8.0); Eosinophils % 2.1 % (0-4.4); Hematocrit 36.1 % (36.0-45.0); Hemoglobin 11.3 g/dL (12.0-15.0); Lymphocytes % 32.6 % (15.3-44.8); MCH 21.5 pg (27.0-35.0); MCHC 31.3 g/dL (32.0-36.0); MCV 68.7 fL (80-100); MPV 9.1 fL (7.6-11.3); Neutrophils % 54.3 % (41.7-73.7); Platelets 254 thou/uL (152-406); RBC Red Blood Cell Count 5.25 M/uL (3.86-4.86); Red Cell Distribution Width 17.7 % (12.1-15.2)
[2024-09-20 10:02] LABS: Anion Gap 7.7 mEq/L (5.0-15.0); Potassium 3.7 mEq/L (3.5-5.1)
[2024-09-20 10:07] LABS: SARS-CoV-2 Antigen CONTROL BLUE LINE VIS/BG OK; SARS-CoV-2 Antigen Rapid Res Negative (Negative)
--- NOTE | 2024-09-20 10:14 | RAD REPORT ---
Procedure: Chest Single View HISTORY: Cough COMPARISON: none FINDINGS: The lungs appear clear of acute infiltrate. No significant pleural effusion noted. The heart is normal size. IMPRESSION: No acute abnormality is displayed.
--- NOTE | 2024-09-20 10:22 | EDPHYS ---
Physician Documentation [facility] Name: Kyra Bailey Age: 34 yrs Sex: Female : 1990 Arrival Date: 09/20/2024 Time: 09:12 Bed 16 Private MD: ED Physician Gary Giang HPI: 09/20 09:25 This 34 yrs old Female presents to ER via Ambulatory with complaints of High ec2 Blood Sugar, Fever, Foot Pain. 09:25 Patient arrives today due to concern for fever and bilateral foot pain after walking ec2 along with elevated blood sugars. Reports fevers or she been taking Tylenol for. Reports that she is having occasional cough as well. Reports he is having bilateral foot pain as well that is worsened with ambulation. Denies any vomiting.. 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 - Infectious Disease History:: Denies. - Social history:: Smoking status: Patient denies any tobacco usage or history of. ROS: 09:25 Constitutional: as per hpi ec2 Exam: 09:25 Constitutional: GEN: NAD Head: atraumatic Eyes: EOMI Ears: External ears are ec2 normal. CV: regular rate LUNGS: no respiratory distress ABD: non-distended SKIN: no evidence of rashes MSK: no evidence of trauma, bilateral feet without trauma or cellulitis Vital Signs: 09:23 BP 145 / 110; Pulse 90; Resp 18; Temp 97.8(TE); Pulse Ox 100% on R/A; Weight 133.81 kg; ld1 Height 5 ft. 7 in. ; Pain 8/10; 10:00 BP 122 / 74; Pulse 73; Resp 15; Pulse Ox 100% on R/A; cm10 09:23 Body Mass Index 46.20 (133.81 kg, 170.18 cm) ld1 09:23 Pain Scale: Adult ld1 MDM: 09:18 Medical Screening Exam initiated ec2 09:25 Data reviewed: vital signs, nurses notes. ED course: Patient arrives today for ec2 evaluation of upper respiratory symptoms along with fever as well as elevated blood sugar. Examination is unrevealing. Will obtain basic lab work, viral swabs, chest x-ray.. 10:03 ED course: EKG independently reviewed and interpreted by me, shows normal sinus rhythm, ec2 rate 77, no acute ST segment elevations, intervals nonactionable.. 10:20 ED course: Metabolic profile reassuring, CBC with slight anemia noted, chest x-ray with ec2 no acute intrathoracic process. Flu and COVID testing negative.. 10:21 ED course: On reassessment patient is well-appearing no acute distress. Discharged ec2 home. Return precautions given. Suspect other viral infection.. 09/20 09:25 Order name: Basic Metabolic Panel; Complete Time: 10:19 ec2 09/20 09:25 Order name: CBC with Diff ec2 09/20 09:25 Order name: Influenza Screen (a \T\ B); Complete Time: 10:19 ec2 09/20 09:25 Order name: SARS RAPID; Complete Time: 10:19 ec2 09/20 09:25 Order name: XRAY Chest (1 view); Complete Time: 10:19 ec2 09/20 09:25 Order name: EKG; Complete Time: 09:25 ec2 09/20 09:25 Order name: Cardiac monitoring; Complete Time: 09:26 ec2 09/20 09:25 Order name: EKG - Nurse/Tech; Complete Time: 09:41 ec2 09/20 09:25 Order name: IV Saline Lock; Complete Time: 09:41 ec2 09/20 09:25 Order name: Labs collected and sent; Complete Time: 09:41 ec2 09/20 09:25 Order name: O2 Per Protocol; Complete Time: 09:26 ec2 09/20 09:25 Order name: O2 Sat Monitoring; Complete Time: 09:26 ec2 Administered Medications: No medications were administered Disposition Summary: 09/20/24 10:21 Discharge Ordered Notes: Location: Home ec2 Condition: Stable ec2 Diagnosis - Viral infection, unspecified ec2 Followup: ec2 - With: Private Physician - When: - Reason: Re-evaluation by your physician Discharge Instructions: - Discharge Summary Sheet ec2 - Viral Illness, Adult ec2 Forms: - Medication Reconciliation Form ec2 - Antibiotic Education ec2 - Prescription Opioid Use ec2 - Patient Portal Instructions ec2 - Leadership Thank You Letter ec2 - Work release form kb4 Signatures: Dispatcher [employer] Beti Omalley RN RN ll1 Lor Emerson RN RN ld1 Gary Giang MD MD ec2
--- NOTE | 2024-09-20 10:22 | ER ---
Nurse's Notes [facility] Name: Kyra Bailey Age: 34 yrs Sex: Female : 1990 Arrival Date: 09/20/2024 Time: 09:12 Bed 16 Private MD: Diagnosis: Viral infection, unspecified Presentation: 09/20 09:18 Acuity: MONE 3 ld1 09:23 Chief complaint: Patient states: BGL 200 this morning. Pt reporting NATASHA foot pain, ld1 fever of 101 this morning. Took tylenol at 0700. Coronavirus screen: At this time, the client does not indicate any symptoms associated with coronavirus-19. Ebola Screen: No symptoms or risks identified at this time. Initial Sepsis Screen: Does the patient meet any 2 criteria? No. Patient's initial sepsis screen is negative. Does the patient have a suspected source of infection? No. Patient's initial sepsis screen is negative. Risk Assessment: Do you want to hurt yourself or someone else? Patient reports no desire to harm self or others. Onset of symptoms was September 20, 2024. 09:23 Method Of Arrival: Ambulatory ld1 Triage Assessment: 09:23 General: Appears in no apparent distress. comfortable, Behavior is calm, cooperative, ld1 appropriate for age. Pain: Complains of pain in right foot and left foot Pain does not radiate. Pain currently is 8 out of 10 on a pain scale. Quality of pain is described as throbbing, Pain began suddenly, Is continuous. EENT: No signs and/or symptoms were reported regarding the EENT system. Neuro: Level of Consciousness is awake, alert, obeys commands, Oriented to person, place, time, situation, Appropriate for age. Cardiovascular: Capillary refill < 3 seconds Patient's skin is warm and dry. Respiratory: Airway is patent Respiratory effort is even, unlabored. GI: Abdomen is round non-distended. : No signs and/or symptoms were reported regarding the genitourinary system. Derm: No signs and/or symptoms reported regarding the dermatologic system. Musculoskeletal: No signs and/or symptoms reported regarding the musculoskeletal system. 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 - Infectious Disease History:: Denies. - Social history:: Smoking status: Patient denies any tobacco usage or history of. Screenin:25 [facility] ED Fall Risk Assessment (Adult) History of falling in the last 3 months, ld1 including since admission No falls in past 3 months (0 pts) Confusion or Disorientation No (0 pts) Intoxicated or Sedated No (0 pts) Impaired Gait No (0 pts) Mobility Assist Device Used No (0 pt) Altered Elimination No (0 pt) Score/Fall Risk Level 0 - 2 = Low Risk Oriented to surroundings, Maintained a safe environment, Educated pt \T\ family on fall prevention, incl call for assistance when getting out of bed, Assessed \T\ reinforced patient's understanding of fall precautions, Provided non-skid footwear, Hourly rounding (assess needs \T\ fall precautionary measures) done, Used ambulatory aids as needed (educated on \T\ assisted with), Used gait belt as appropriate. Abuse screen: Denies threats or abuse. Denies injuries from another. Nutritional screening: No deficits noted. Tuberculosis screening: No symptoms or risk factors identified. Assessment: 09:25 Reassessment: See triage assessment. ld1 10:34 Reassessment: Patient appears in no apparent distress at this time. Patient and/or cm10 family updated on plan of care and expected duration. Pain level reassessed. Patient is alert, oriented x 3, equal unlabored respirations, skin warm/dry/pink. Patient states feeling better. Patient states symptoms have improved. Vital Signs: 09:23 BP 145 / 110; Pulse 90; Resp 18; Temp 97.8(TE); Pulse Ox 100% on R/A; Weight 133.81 kg; ld1 Height 5 ft. 7 in. ; Pain 8/10; 10:00 BP 122 / 74; Pulse 73; Resp 15; Pulse Ox 100% on R/A; cm10 09:23 Body Mass Index 46.20 (133.81 kg, 170.18 cm) ld1 09:23 Pain Scale: Adult ld1 ED Course: 09:13 Patient arrived in ED. mr 09:15 Arm band placed on Patient placed in an exam room, on a stretcher. ll1 09:18 Gary Giang MD is Attending Physician. ec2 09:18 Lor Emerson, RN is Primary Nurse. ld1 09:18 Triage completed. ld1 :25 Patient has correct armband on for positive identification. Placed in gown. Bed in low ld1 position. Call light in reach. Side rails up X2. work ticket distributor on. Pulse ox on. NIBP on. Door closed. Noise minimized. Warm blanket given. :25 No provider procedures requiring assistance completed. ld1 09:41 SARS RAPID Sent. ld1 :41 Influenza Screen (a \T\ B) Sent. ld1 09:42 Initial lab(s) drawn, by mn, sent to lab. COVID swab sent to lab. Flu and/or RSV swab em1 sent to lab. Inserted saline lock: 22 gauge in right forearm, using aseptic technique. Blood collected. Flushed with 10 mL NS. 09:43 Basic Metabolic Panel Sent. em1 :43 CBC with Diff Sent. em1 10:12 XRAY Chest (1 view) In Process Unspecified. EDMS 10:34 Provided Education on: Follow-up instructions. cm10 10:34 IV discontinued, intact, bleeding controlled, No redness/swelling at site. Pressure cm10 dressing applied. Administered Medications: No medications were administered Medication: : VIS not applicable for this client. ld1 Outcome: 10:21 Discharge ordered by . ec2 10:34 Discharged to home ambulatory, with significant other, cm10 10:34 Condition: good 10:34 Discharge instructions given to patient, Instructed on discharge instructions, follow up and referral plans. Demonstrated understanding of instructions, follow-up care, 10:35 Patient left the ED. cm10 Signatures: Dispatcher [employer] EDND JasmineVicky, Reg Reg Nnamdi Ordaz em1 Beti Denny RN RN 1 Lor Emerson, CY BENOIT ld1 Valentina Ordaz RN RN cm10 Gary Giang MD MD 2
[2024-09-20 10:48] VITALS: TEMP 97.8; O2SAT 100
[2024-09-20 10:54] VITALS: BP 122/74
[2024-09-20 11:08] LABS: Anisocytosis 1+; Blood Morphology Comment NOTED (NOT SEEN); Hypochromasia 1+; Microcytosis 1+; Platelet Estimate ADEQ; Polychromasia SLIGHT; White Blood Cell Scan OK (OK)
--- NOTE | 2024-09-22 15:12 | EKG ---
Test Date: 2024-09-20 Test Time: 09:38:37 Airline Pilot Flight Instructor: Hilary SI MEASUREMENT RESULTS: Intervals: Rate: 77 AL: 102 QRSD: 88 QT: 362 QTc: 409 [place]: P: 30 AL: 102 QRS: 58 T: 13 INTERPRETIVE STATEMENTS: Sinus rhythm with short AL Cannot rule out Inferior infarct, age undetermined Abnormal ECG No previous ECG available for comparison Electronically Signed On 09-22-24 15:07:27 ASSEMBLER WATCH TRAIN by Gustabo Garcia
== END 2024-09-20 10:35 | disposition home or self-care (01) ==
LOC: ER 09:12
DX: B34.9 Viral infection, unspecified (principal); Z11.52 Encounter for screening for COVID-19
CPT/HCPCS: 36415; 71045; 80048; 85025; 87804; 87811; 93005; 99284

== ENCOUNTER 2024-11-23 15:40 | Emergency (ER) | payer OTHER ==
--- NOTE | 2024-11-23 16:43 | EDPHYS ---
Physician Documentation [facility] Name: Kyra Bailey Age: 34 yrs Sex: Female : 1990 Arrival Date: 11/23/2024 Time: 15:40 Bed 10 Private MD: ED Physician Kar Dixon HPI: 11/23 16:39 This 34 yrs old Female presents to ER via Ambulatory with complaints of Infected toe. rn 16:39 The patient presents with pain. The complaints affect the right foot. Onset: The rn symptoms/episode began/occurred 1 week(s) ago. Severity of symptoms: At their worst the symptoms were mild, in the emergency department the symptoms are unchanged. The patient has not experienced similar symptoms in the past. Patient reports right great toe pain and ingrown toenail with redness. Has been draining some fluid. Resolving so came in for evaluation.. Historical: - Allergies: 15:49 Tessalon Perles; ll1 - PMHx: 15:49 Anxiety; diabetes mellitus; Ovarian cyst; Seizure; ll1 - PSHx: 15:49 Cholecystectomy; gastric sleeve; knee; pelvic repair; ll1 - Immunization history:: Adult Immunizations up to date. - Social history:: Smoking status: Patient denies any tobacco usage or history of. - Family history:: not pertinent. - Hospitalizations: : No recent hospitalization is reported. ROS: 16:39 Constitutional: Negative for fever, chills, and weight loss, MS/Extremity: Positive for rn ingrown toenail and pain to right great toe Exam: 16:39 Constitutional: This is a well developed, well nourished patient who is awake, alert, rn and in no acute distress. MS/ Extremity: Pulses equal, no cyanosis. Neurovascular intact. Right great toe with medial redness, no obvious abscess or fluctuance but serosanguineous drainage coming from nail edge. Vital Signs: 15:49 BP 166 / 96; Pulse 73; Resp 16; Temp 98; Pulse Ox 100% ; Weight 136.08 kg; Height 5 ft. ll1 7 in. ; Pain 10/10; 15:49 Body Mass Index 46.99 (136.08 kg, 170.18 cm) ll1 15:49 Pain Scale: Adult ll1 Procedures: 16:39 I \T\ D: Incision and drainage was performed for an abscess of the right Great toe rn Prepped with Betadine, Anesthetized with nothing. Incised with 18-gauge needle. Drained small amount serosanguinous fluid. bloody fluid. Dressing: sterile 4x4 gauze, the patient tolerated the procedure well. MDM: 15:48 Medical Screening Exam initiated rn 16:39 Differential diagnosis: cellulitis, Ingrown toenail with cellulitis. Data reviewed: rn vital signs, nurses notes, and as a result, I will discharge patient. Counseling: I had a detailed discussion with the patient and/or guardian regarding the historical points, exam findings, and any diagnostic results supporting the discharge/admit diagnosis, the need for outpatient follow up, to return to the emergency department if symptoms worsen or persist or if there are any questions or concerns that arise at home. Special discussion: I discussed with the patient/guardian in detail that at this point there is no indication for admission to the hospital. It is understood, however, that if the symptoms persist or worsen the patient needs to return immediately for re-evaluation. Based on the history and exam findings, there is no indication for further emergent testing or inpatient evaluation. I discussed with the patient/guardian the need to see the flag football coach for further evaluation of the symptoms. ED course: Spoke at length with patient regarding her toenail cutting habits, told her she is cutting them too short especially for diabetic. Needs to let them grow longer and cut them straight across to prevent further ingrown toenails. Recommend follow-up with podiatry if antibiotics do not help especially after incision and drainage/elevation of nail edge. Administered Medications: No medications were administered Disposition Summary: 11/23/24 16:43 Discharge Ordered Notes: Location: Home rn Problem: new rn Symptoms: are unchanged rn Condition: Stable rn Diagnosis - Cellulitis of right toe rn Followup: rn - With: Feliz Moy DPM - When: As needed - Reason: Recheck today's complaints, Re-evaluation by your physician Discharge Instructions: - Discharge Summary Sheet rn - Cellulitis, Adult rn - Paronychia rn Forms: - Medication Reconciliation Form rn - Antibiotic compliance attorney - Prescription Opioid Use rn - Patient Portal Instructions rn - Leadership Thank You Letter rn Prescriptions: - Bactrim DS 800-160 mg Oral Tablet - take 1 tablet ORAL route every 12 hours for 10 days; 20 tablet; Refills: 0, rn Product Selection Permitted Signatures: Kar Dixon MD MD rn Eduin, Beti, RN RN ll1
--- NOTE | 2024-11-23 16:43 | ER ---
Nurse's Notes [facility] Name: Kyra Bailey Age: 34 yrs Sex: Female : 1990 Arrival Date: 11/23/2024 Time: 15:40 Bed 10 Private MD: Diagnosis: Cellulitis of right toe Presentation: 11/23 15:49 Chief complaint: Patient states: R great toe ingrown toenail noticed 3 days ago. No ll1 fever. Coronavirus screen: Client denies travel out of the [place] in the last 14 days. At this time, the client does not indicate any symptoms associated with coronavirus-19. Ebola Screen: Patient denies travel to an Ebola-affected area in the 21 days before illness onset. Initial Sepsis Screen: Does the patient meet any 2 criteria? No. Patient's initial sepsis screen is negative. Does the patient have a suspected source of infection? No. Patient's initial sepsis screen is negative. Risk Assessment: Do you want to hurt yourself or someone else? Patient reports no desire to harm self or others. Onset of symptoms was November 21, 2024. 15:49 Method Of Arrival: Ambulatory ll1 15:49 Acuity: MONE 4 ll1 Historical: - Allergies: 15:49 Tessalon Perles; ll1 - PMHx: 15:49 Anxiety; diabetes mellitus; Ovarian cyst; Seizure; ll1 - PSHx: 15:49 Cholecystectomy; gastric sleeve; knee; pelvic repair; ll1 - Immunization history:: Adult Immunizations up to date. - Social history:: Smoking status: Patient denies any tobacco usage or history of. - Family history:: not pertinent. - Hospitalizations: : No recent hospitalization is reported. Screenin:02 [facility] ED Fall Risk Assessment (Adult) History of falling in the last 3 months, ss including since admission No falls in past 3 months (0 pts) Confusion or Disorientation No (0 pts) Intoxicated or Sedated No (0 pts) Impaired Gait No (0 pts) Mobility Assist Device Used No (0 pt) Altered Elimination No (0 pt) Score/Fall Risk Level 0 - 2 = Low Risk Oriented to surroundings, Maintained a safe environment. Abuse screen: Denies threats or abuse. Denies injuries from another. Nutritional screening: No deficits noted. Tuberculosis screening: Never had TB. Assessment: 16:58 General: Appears in no apparent distress. comfortable, Behavior is calm, cooperative, ss Denies fever, feeling ill, fatigue, chills. Neuro: Level of Consciousness is awake, alert, obeys commands, Oriented to person, place, time, situation. Respiratory: Airway is patent Respiratory effort is even, unlabored, Respiratory pattern is regular, symmetrical. 17:02 GI: Patient currently denies diarrhea, nausea, vomiting. EENT: Oral mucosa is moist. ss Derm: Skin is intact, is healthy with good turgor, Skin is pink, warm \T\ dry. normal. Vital Signs: 15:49 BP 166 / 96; Pulse 73; Resp 16; Temp 98; Pulse Ox 100% ; Weight 136.08 kg; Height 5 ft. ll1 7 in. ; Pain 10/10; 15:49 Body Mass Index 46.99 (136.08 kg, 170.18 cm) ll1 15:49 Pain Scale: Adult ll1 ED Course: 15:42 Patient arrived in ED. mr 15:48 Kar Dixon MD is Attending Physician. rn 15:49 Arm band placed on. ll1 15:50 Triage completed. ll1 16:42 Feliz Moy DPM is Referral Physician. rn 16:58 Griselda Sapp, CY is Primary Nurse. ss 17:02 Patient has correct armband on for positive identification. ss 17:02 No provider procedures requiring assistance completed. Patient did not have IV access ss during this emergency room visit. Administered Medications: No medications were administered Medication: 17:02 VIS not applicable for this client. ss Outcome: 16:43 Discharge ordered by . rn 17:02 Discharged to home ambulatory, with family, ss 17:02 Condition: good 17:02 Discharge instructions given to patient, Instructed on discharge instructions, follow up and referral plans. medication usage, Demonstrated understanding of instructions, follow-up care, medications, Prescriptions given X 1, 17:03 Patient left the ED. ss Signatures: Vicky Jasmine, Helder Reg mr Kar Dixon MD MD rn Blanchard, Shelby, CY RN ss Beti Denny RN RN ll1 Corrections: (The following items were deleted from the chart) 17:02 16:58 Respiratory: ss ss
[2024-11-23 17:44] VITALS: BP 166/96; TEMP 98; O2SAT 100
== END 2024-11-23 17:03 | disposition home or self-care (01) ==
LOC: ER 15:40
PROC: 0H9MXZZ Drainage of Right Foot Skin, External Approach (ICD-10-PCS; principal; 2024-11-23)
DX: L03.031 Cellulitis of right toe (principal)
CPT/HCPCS: 99283

== ENCOUNTER 2025-06-22 16:53 | Emergency (ER) | payer OTHER ==
[2025-06-22] MEDS ORDERED: DIPHENHYDRAMINE 50 MG/ML VIAL ONE (18:56)
[2025-06-22] MEDS ORDERED: METOCLOPRAMIDE 10 MG/2mL INJ ONE (18:56)
[2025-06-22] MEDS ORDERED: FAMOTIDINE 20 MG/2 ML VIAL IV ONE (18:57)
[2025-06-22 19:05] LABS: Absolute Lymphocytes (CBC) 2.5 K/uL (0.7-4.9); Hematocrit 33.1 % (36.0-45.0); Hemoglobin 10.2 g/dL (12.0-15.0); MCH 19.1 pg (27.0-35.0); MCHC 30.8 g/dL (32.0-36.0); MCV 62.0 fL (80-100); MPV 9.2 fL (7.6-11.3); Nucleated RBC Absolute Count 0.0 (0-0); Nucleated Red Blood Cells % 0.1 % (0-0); RBC Red Blood Cell Count 5.33 M/uL (3.86-4.86); White Blood Count 5.80 thou/uL (4.3-10.9)
[2025-06-22 19:11] LABS: White Blood Cell Scan OK (OK)
[2025-06-22 19:12] LABS: Blood Morphology Comment NOTED (NOT SEEN); Hypochromasia 2+; Microcytosis 2+
[2025-06-22 19:26] LABS: ALT/SGPT 26.0 U/L (13-56); AST/SGOT 15.0 U/L (15-37); Albumin 3.3 g/dL (3.4-5.0); Albumin/Globulin Ratio 0.9 (1.1-1.8); Alkaline Phosphatase 78.0 U/L (45-117); Anion Gap 8.0 mEq/L (5.0-15.0); BUN Blood Urea Nitrogen 9.0 mg/dL (7-18); Globulin 3.7 g/dL (2.3-3.5); Glucose Level 85.0 mg/dL (74-106); Lipase 43.0 U/L (13-75); Magnesium 2.0 mg/dL (1.6-2.4); Potassium 4.0 mEq/L (3.5-5.1)
[2025-06-22] MEDS ORDERED: HYDROCORTISONE SUC 100 MG INJ ONE (19:34)
--- NOTE | 2025-06-22 20:46 | RAD REPORT ---
EXAMINATION: Head Brain Wo Cont CLINICAL INDICATION: Female, 35 years old.HEADACHE TECHNIQUE: Axial CT images from the skull base to the vertex without intravenous contrast. Coronal an d sagittal reformatted images were created from the data set. One or more of the following dose reduction techniques were used: Automated exposure control, adjustment of the mA and/or kV according to patient size, and/or iterative reconstruction. Unless otherwise specified, incidental findings do not require dedicated imaging follow-up. [id number]. COMPARISON: 10/20/2022 FINDINGS: INTRACRANIAL: No acute intracranial hemorrhage. No acute large vascular territory infarct. No hydro cephalus. No mass effect or midline shift. No significant white matter disease. VASCULATURE: No visualized abnormalities in the arteries or dural venous sinuses. SCALP/SKULL: No calvarial fracture identified. No acute soft tissue abnormality. SINUSES: The visualized paranasal sinuses are mostly clear. No significant mastoid fluid. Partially imaged ovoid structure at the right nasal passage. This was present in 2022. IMPRESSION: No acute intracranial abnormality.
--- NOTE | 2025-06-22 21:01 | RAD REPORT ---
EXAMINATION: Abdomen Pelvis W Contrast CLINICAL INDICATION: Female, 35 years old.ABD PAIN TECHNIQUE: CT abdomen and pelvis was performed, after the administration of IV contrast, as [facility]. Axial, sagittal and coronal reconstructions were obtained. One or more of the following dose reduction techniques were used: Automated exposure control, adjustment of the mA and/o r kV according to patient size, and/or iterative reconstruction. Unless otherwise specified, incidental findings do not require dedicated imaging follow-up. [id number]. COMPARISON: 02/18/2024 FINDINGS: LOWER CHEST: No acute process identified. Mild cardiomegaly Small hiatal hernia with circumferential thickening of the esophagus which could reflect esophagitis. UPPER GI: Partial gastrectomy LIVER: Hepatomegaly with steatosis. GALLBLADDER/BILE DUCTS: Cholecystectomy.? PANCREAS: No mass, ductal dilation, or roberth-pancreatic fluid. SPLEEN: Unremarkable. ADRENALS: No adrenal masses. KIDNEYS AND URETERS: No hydronephrosis. No suspicious renal mass. No renal calculi. No ureteral calcu li. ABDOMINAL AORTA AND OTHER VESSELS: Normal caliber aorta and IVC. PERITONEUM: No abnormal free fluid. No free air. LYMPH NODES: No pathologic lymphadenopathy. ABDOMINAL WALL: Unremarkable SMALL BOWEL/COLON: Small bowel has normal course and caliber. No colonic wall thickening or pericolon ic inflammatory changes. Normal appendix. URINARY BLADDER: Underdistended but grossly unremarkable. REPRODUCTIVE ORGANS: No pathologic process. MUSCULOSKELETAL: Trans left SI joint screws. ADDITIONAL FINDINGS: None. IMPRESSION: No acute findings within the abdomen or pelvis.
[2025-06-22] MEDS ORDERED: D50W 25 GM/50 ML SYRINGE IV ONE (21:08)
[2025-06-22 22:28] LABS: Urine Microscopic Reflex YN NO UMIC
[2025-06-22 22:30] LABS: Urine Crystals Unidentified Few /HPF (None Seen); Urine Culture Reflex Order NOT NEEDED
--- NOTE | 2025-06-22 22:35 | EDPHYS ---
Physician Documentation [facility] Name: Kyra Bailey Age: 35 yrs Sex: Female : 1990 Arrival Date: 06/22/2025 Time: 16:53 Bed 2 Private MD: ED Physician Silvia Barrera HPI: 06/22 17:30 This 35 yrs old Female presents to ER via Ambulatory with complaints of Nausea, cp Headache. 17:30 The patient presents to the emergency department with nausea, that is moderate, cp abdominal pain, of the abdomen diffusely, described as achy. Onset: The symptoms/episode began/occurred 1 week(s) ago. Possible causes: unknown. Associated signs and symptoms: Pertinent positives: reports low blood glucose today. took 15 units Novolog 70/30 as prescribed this morning, Pertinent negatives: constipation, diarrhea, fever. Severity of symptoms: in the emergency department the symptoms are unchanged despite home interventions. 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 - Infectious Disease History:: Denies. - Social history:: Smoking status: Patient denies any tobacco usage or history of. ROS: 17:35 Constitutional: Negative for body aches, chills, fever, poor PO intake, cp 17:35 Eyes: Negative for injury, pain, redness, and discharge, cp 17:35 Cardiovascular: Negative for chest pain, edema, palpitations, 17:35 Respiratory: Negative for cough, shortness of breath, wheezing, 17:35 Abdomen/GI: Positive for abdominal pain, nausea, Negative for diarrhea, constipation, anorexia, active vomiting, 17:35 Back: Negative for pain at rest, pain with movement, 17:35 Neuro: Positive for headache, Negative for altered mental status, weakness, 17:35 All other systems are negative, Exam: 17:40 Constitutional: The patient appears in no acute distress, alert, awake, cp non-diaphoretic, non-toxic, well developed, well nourished, obese, 17:40 Head/Face: Normocephalic, atraumatic. cp 17:40 Eyes: Periorbital structures: appear normal, Pupils: equal, round, and reactive to cp light and accomodation, Extraocular movements: intact throughout, Sclera: no appreciated abnormality, Lids and lashes: appear normal, bilaterally, 17:40 ENT: External ear(s): are unremarkable, Nose: is normal, Mouth: Lips: moist, Oral mucosa: moist, Posterior pharynx: Airway: no evidence of obstruction, patent, Voice: is normal, 17:40 Neck: ROM/movement: is normal, is supple, without pain, no range of motions limitations, no meningismus, 17:40 Chest/axilla: Inspection: normal, 17:40 Cardiovascular: Rate: normal, Rhythm: regular, Edema: is not appreciated, 17:40 Respiratory: the patient does not display signs of respiratory distress, Respirations: cp normal, no use of accessory muscles, no retractions, labored breathing, is not present, Breath sounds: are clear throughout, no decreased breath sounds, no stridor, no wheezing, 17:40 Abdomen/GI: Inspection: obese Bowel sounds: active, all quadrants, Palpation: soft, in all quadrants, mild abdominal tenderness, in all quadrants, rebound tenderness, is not appreciated, involuntary guarding, is not appreciated, 17:40 Back: CVA tenderness, is absent, 17:40 Skin: no rash present. 17:40 Neuro: Orientation: to person, place \T\ time. Mentation: is normal, Motor: moves all fours, strength is normal, Sensation: is normal, Gait: is steady, at a normal pace, without difficulty, 19:00 ECG was reviewed by the Attending Physician. cp Vital Signs: 17:08 BP 131 / 93; Pulse 77; Resp 18; Temp 98; Pulse Ox 100% ; Weight 152.86 kg; Height 5 ft. me1 7 in. ; Pain 10/10; 18:52 BP 122 / 96; Pulse 84; Resp 17; Pulse Ox 100% on R/A; ap3 20:55 BP 112 / 89; Pulse 87; Resp 22; Pulse Ox 100% on R/A; at6 22:20 BP 109 / 78; Pulse 68; Resp 17; Temp 98; Pulse Ox 96% ; Pain 0/10; at6 17:08 Body Mass Index 52.78 (152.86 kg, 170.18 cm) me1 17:08 Pain Scale: Adult me1 22:20 Pain Scale: Adult at6 MDM: 17:05 Medical Screening Exam initiated cp 22:33 Data reviewed: vital signs, nurses notes, lab test result(s), radiologic studies, CT cp scan, and as a result, I will discharge patient. 22:33 Differential diagnosis: Nonspecific abd pain, gastritis, pancreatitis, appendicitis, cp GERD, UTI. Consideration of Admission/Observation Escalation of care including admission/observation considered. I considered the following discharge prescriptions or medication management in the emergency department Medications were administered in the Emergency Department. See MAR. Care significantly affected by the following chronic conditions: Diabetes, Obesity, seizure disorder. Counseling: I had a detailed discussion with the patient and/or guardian regarding the historical points, exam findings, and any diagnostic results supporting the discharge/admit diagnosis, lab results, radiology results, the need for outpatient follow up, a family practitioner, to return to the emergency department if symptoms worsen or persist or if there are any questions or concerns that arise at home. Response to treatment: the patient's symptoms have markedly improved after treatment, blood glucose improved with treatment and stable, and as a result, I will discharge patient. 06/22 17:25 Order name: CBC with Diff; Complete Time: 19:54 cp 06/22 19:54 Interpretation: Normal except: RBC 5.33; HGB 10.2; HCT 33.1; MCV 62.0; MCH 19.1; MCHC cp 30.8; RDW 18.9; YOAN% 41.6; MN% 12.6. 06/22 17:25 Order name: CMP; Complete Time: 19:54 cp 06/22 17:25 Order name: Lipase; Complete Time: 19:54 cp 06/22 17:25 Order name: Test, Urine; Complete Time: 19:54 cp 06/22 17:25 Order name: Magnesium; Complete Time: 19:54 cp 06/22 17:25 Order name: UA Rfx Kannan Cult if indicated; Complete Time: 22:32 cp 06/22 19:12 Order name: CBC Smear Scan; Complete Time: 19:54 EDMS 06/22 19:35 Order name: Glucose, Ancillary Testing; Complete Time: 19:54 EDMS 06/22 21:04 Order name: Glucose, Ancillary Testing; Complete Time: 21:22 EDMS 06/22 22:00 Order name: Glucose, Ancillary Testing; Complete Time: 22:20 EDMS 06/22 22:20 Interpretation: Reviewed. cp 06/22 22:26 Order name: Glucose, Ancillary Testing; Complete Time: 22:32 EDMS 06/22 19:56 Order name: CT Head Brain wo Cont; Complete Time: 21:22 cp 06/22 19:56 Order name: CT Abd/Pelvis - IV Contrast Only; Complete Time: 21:22 cp 06/22 17:25 Order name: IV Saline Lock; Complete Time: 19:01 cp 06/22 17:25 Order name: Labs collected and sent; Complete Time: 19:01 cp 06/22 17:25 Order name: Accucheck Blood Glucose; Complete Time: 20:39 cp EC:00 Rate is 70 beats/min. Rhythm is regular. MI interval is normal. QRS interval is normal. cp QT interval is normal. T waves are Inverted in leads III, aVR. Interpreted by me. Reviewed by me. Administered Medications: 19:03 Drug: metoCLOPramide IVP 10 mg IVP once; over 1 to 2 minutes Route: IVP; Site: right aa5 antecubital; 20:38 Follow up: Response: No adverse reaction bm8 19:03 Drug: diphenhydrAMINE IVP 25 mg IVP once Route: IVP; Site: right antecubital; aa5 20:38 Follow up: Response: No adverse reaction bm8 19:03 Drug: Famotidine IVP 20 mg IVP once; dilute with 10 mL 0.9% NaCl; give over 2 minutes aa5 Route: IVP; Site: right antecubital; 20:38 Follow up: Response: No adverse reaction bm8 19:34 Not Given (Hemodynamic Parameters): d50w50 ml IVP once; (1 amp) if blood glucose less at6 than 75 19:34 Drug: Solu-CORTEF IVP 50 mg IVP once Route: IVP; Site: right antecubital; at6 20:38 Follow up: Response: No adverse reaction bm8 21:14 Drug: D50W IVP 50 ml IVP once; (1 amp) Route: IVP; Site: left antecubital; at6 22:28 Follow up: Response: No adverse reaction bm8 Disposition Summary: 06/22/25 22:34 Discharge Ordered Notes: Location: Home cp Problem: new cp Symptoms: have improved cp Condition: Stable cp Diagnosis - Diabetes mellitus due to underlying condition with hypoglycemia without coma cp - Abdominal pain, unspecified cp - Headache cp - Nausea cp Followup: cp - With: Private Physician - When: 2 - 3 days - Reason: Recheck today's complaints Followup: cp - With: Travis Avalos MD - When: 5 - 6 days - Reason: abdominal pain Discharge Instructions: - Discharge Summary Sheet cp - Abdominal Pain, Adult cp - General Headache Without Cause cp - Hypoglycemia cp - Nausea, Adult cp - Blood Glucose Monitoring, Adult cp Forms: - Work release form sp - Medication Reconciliation Form cp - Antibiotic Education cp - Prescription Opioid Use cp - Patient Portal Instructions cp - Leadership Thank You Letter cp Prescriptions: - dicyclomine 20 mg Oral tablet - take 1 tablet ORAL route 4 times per day; 30 tablet; Refills: 0, Product cp Selection Permitted - ondansetron 8 mg Oral Tablet,disintegrating - take 1 tablet ORAL route every 12 hours; 15 tablet; Refills: 0, Product cp Selection Permitted Signatures: Dispatcher [employer] EDRaquel Valdovinos RN RN aa5 Galo Olivares PA-C PA-C cp Graciela Gonzalez, RN RN me1 Saba Salazra RN RN at6 Frank Agustin RN bm8 Corrections: (The following items were deleted from the chart) 17:26 17:26 CBC+H.LAB.BRZ ordered. EDMS EDMS 17:26 17:26 COMPREHENSIVE METABOLIC PANEL+C.LAB.BRZ ordered. EDMS EDMS 17:26 17:26 LIPASE+C.LAB.BRZ ordered. EDMS EDMS 17:26 17:26 Test, Urine+UC.LAB.BRZ ordered. EDMS EDMS 17:26 17:26 MAGNESIUM+C.LAB.BRZ ordered. EDMS EDMS 17:26 17:26 UA Rfx Kannan Cult if indicated+U.LAB.BRZ ordered. EDMS EDMS
--- NOTE | 2025-06-22 22:35 | ER ---
Nurse's Notes [facility] Name: Kyra Bailey Age: 35 yrs Sex: Female : 1990 Arrival Date: 06/22/2025 Time: 16:53 Bed 2 Private MD: Diagnosis: Diabetes mellitus due to underlying condition with hypoglycemia without coma;Abdominal pain, unspecified;Headache;Nausea Presentation: 06/22 17:08 Chief complaint: Patient states: Sent by [facility] for BACK and abdominal pain and nausea for me1 the past week. states her BGL has been dropping down into the 50s. BACK 06/08. Coronavirus screen: At this time, the client does not indicate any symptoms associated with coronavirus-19. Ebola Screen: No symptoms or risks identified at this time. Initial Sepsis Screen: Does the patient meet any 2 criteria? No. Patient's initial sepsis screen is negative. Does the patient have a suspected source of infection? No. Patient's initial sepsis screen is negative. Risk Assessment: Do you want to hurt yourself or someone else? Patient reports no desire to harm self or others. Onset of symptoms is unknown. 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 - Infectious Disease History:: Denies. - Social history:: Smoking status: Patient denies any tobacco usage or history of. Screenin:51 [facility] ED Fall Risk Assessment (Adult) History of falling in the last 3 months, ap3 including since admission No falls in past 3 months (0 pts) Confusion or Disorientation No (0 pts) Intoxicated or Sedated No (0 pts) Impaired Gait No (0 pts) Mobility Assist Device Used No (0 pt) Altered Elimination No (0 pt) Score/Fall Risk Level 0 - 2 = Low Risk Oriented to surroundings, Maintained a safe environment, Educated pt \T\ family on fall prevention, incl call for assistance when getting out of bed, Assessed \T\ reinforced patient's understanding of fall precautions, Hourly rounding (assess needs \T\ fall precautionary measures) done, Used ambulatory aids as needed (educated on \T\ assisted with). Abuse screen: Denies threats or abuse. Nutritional screening: No deficits noted. Tuberculosis screening: No symptoms or risk factors identified. Assessment: 18:50 General: Appears in no apparent distress. Behavior is calm, cooperative, appropriate ap3 for age. Pain: Denies pain. Neuro: Level of Consciousness is awake, alert, obeys commands, Oriented to person, place, time, situation, Appropriate for age Speech is normal. Cardiovascular: Patient's skin is warm and dry. Respiratory: Airway is patent Respiratory effort is even, unlabored, Respiratory pattern is regular, symmetrical. GI: Abdomen is non-distended. 18:51 Reassessment: patient provided with juice and crackers for reporting a blood sugar of ap3 57 on her monitor. 22:27 Reassessment: Patient appears in no apparent distress at this time. Patient and/or bm8 family updated on plan of care and expected duration. Pain level reassessed. Patient is alert, oriented x 3, equal unlabored respirations, skin warm/dry/pink. Patient denies pain at this time. Patient states feeling better. Patient states symptoms have improved. Vital Signs: 17:08 BP 131 / 93; Pulse 77; Resp 18; Temp 98; Pulse Ox 100% ; Weight 152.86 kg; Height 5 ft. me1 7 in. ; Pain 10/10; 18:52 BP 122 / 96; Pulse 84; Resp 17; Pulse Ox 100% on R/A; ap3 20:55 BP 112 / 89; Pulse 87; Resp 22; Pulse Ox 100% on R/A; at6 22:20 BP 109 / 78; Pulse 68; Resp 17; Temp 98; Pulse Ox 96% ; Pain 0/10; at6 17:08 Body Mass Index 52.78 (152.86 kg, 170.18 cm) me1 17:08 Pain Scale: Adult me1 22:20 Pain Scale: Adult at6 ED Course: 16:55 Patient arrived in ED. im 16:57 Galo Olivares PA-C is [facility]. cp 16:57 Silvia Barrera MD is Attending Physician. cp 17:13 Triage completed. me1 17:13 Arm band placed on Patient placed in waiting room. me1 18:49 Kaycee Marshall, RN is Primary Nurse. ap3 18:51 Patient has correct armband on for positive identification. Bed in low position. Call ap3 light in reach. Side rails up X 1. Client placed on continuous cardiac and pulse oximetry monitoring. NIBP monitoring applied. monitoring coordinator on. Pulse ox on. NIBP on. 19:00 Initial lab(s) drawn, by me, sent to lab. Inserted saline lock: 22 gauge in right ap3 antecubital area, using aseptic technique. Blood collected. Flushed with 10 mL NS. 19:27 Test, Urine Sent. at6 19:27 UA Rfx Kannan Cult if indicated Sent. at6 19:58 Provided Education on: diabetic sugars management. at6 20:19 Primary Nurse role handed off by Kaycee Marshall, RN rv1 20:32 CT Head Brain wo Cont In Process Unspecified. EDMS 20:35 CT Abd/Pelvis - IV Contrast Only In Process Unspecified. EDMS 20:54 Saba Salazar, RN is Primary Nurse. at6 20:54 Patient was given snacks and juice for BGL being 86. Provider notified. at6 22:32 Travis Avalos MD is Referral Physician. cp 22:46 Provided Education on: post er care. bm8 22:46 No provider procedures requiring assistance completed. IV discontinued, intact, bm8 bleeding controlled, No redness/swelling at site. Pressure dressing applied. Administered Medications: 19:03 Drug: metoCLOPramide IVP 10 mg IVP once; over 1 to 2 minutes Route: IVP; Site: right aa5 antecubital; 20:38 Follow up: Response: No adverse reaction bm8 19:03 Drug: diphenhydrAMINE IVP 25 mg IVP once Route: IVP; Site: right antecubital; aa5 20:38 Follow up: Response: No adverse reaction bm8 19:03 Drug: Famotidine IVP 20 mg IVP once; dilute with 10 mL 0.9% NaCl; give over 2 minutes aa5 Route: IVP; Site: right antecubital; 20:38 Follow up: Response: No adverse reaction bm8 19:34 Not Given (Hemodynamic Parameters): d50w50 ml IVP once; (1 amp) if blood glucose less at6 than 75 19:34 Drug: Solu-CORTEF IVP 50 mg IVP once Route: IVP; Site: right antecubital; at6 20:38 Follow up: Response: No adverse reaction bm8 21:14 Drug: D50W IVP 50 ml IVP once; (1 amp) Route: IVP; Site: left antecubital; at6 22:28 Follow up: Response: No adverse reaction bm8 Medication: 19:01 VIS not applicable for this client. ap3 Outcome: 22:34 Discharge ordered by . cp 22:46 Discharged to home ambulatory, with family, bm8 22:46 Condition: stable 22:46 Discharge instructions given to patient, family, Instructed on discharge instructions, follow up and referral plans. no drinking with medication, no driving heavy equipment, medication usage, safety practices, Demonstrated understanding of instructions, follow-up care, medications, 22:47 Prescriptions given X 2, bm8 22:47 Patient left the ED. bm8 Signatures: Dispatcher [employer] EDRaquel Valdovinos, RN RN aa5 Galo Olivares, PA-C PA-C Kaycee Nichols RN RN ap3 Fe Mark rv1 Ashley You Michelle, RN RN me1 Frank Agustin RN RN bm8 Saba Salazar RN RN at6
[2025-06-23 06:14] VITALS: TEMP 98
[2025-06-23 06:17] VITALS: BP 109/78; O2SAT 96
== END 2025-06-22 22:47 | disposition home or self-care (01) ==
LOC: ER 16:53
DX: R11.0 Nausea (principal); E08.649 Diabetes mellitus due to underlying condition with hypoglycemia without coma; R51.9 Headache, unspecified; R10.9 Unspecified abdominal pain
CPT/HCPCS: 93005; 85025; 36415; 83735; 81025; 82947 ×4; 81003; 83690; 80053; 70450; 74177; 99285; Q9967; J2765; J1200; J1720